=== PATIENT | female | born 1955 | race American Indian/Alaskan Native ===

== ENCOUNTER 2017-08-08 12:55 | Inpatient (IN) | payer OTHER, MEDICARE ==
[2017-08-08] MEDS ORDERED: NACL 0.9% 500 ML 500 ML IV ONE (14:09)
[2017-08-08] MEDS ORDERED: NACL 0.9% 1000 ML 1,000 ML IV ONE (14:11)
[2017-08-08] MEDS ORDERED: VANCOMYCIN 2,000 MG in NACL 0.9% 500 ML 500 ML IV ONE (14:45)
[2017-08-08 14:59] LABS: ISTAT Base Excess -4; ISTAT DEVICE 0; ISTAT PCO2 70.4 (35-45); ISTAT PH 7.159 (7.35-7.45); ISTAT PO2 123 (80-105); ISTAT SO2 97; ISTAT TCO2 27
[2017-08-08] MEDS ORDERED: VANCOMYCIN PHARMACY TO DOSE IV SCH (15:00)
--- NOTE | 2017-08-08 15:09 | XRay Report ---
CHEST ONE VIEW INDICATION: Possible sepsis. COMPARISON: None similar. FINDINGS: Portable, single, frontal chest radiograph demonstrates limited inspiration and mild exaggerated cardiomediastinal silhouette/possible cardiomegaly. Pulmonary arterial hypertension not excluded. No large pleural effusions or CHF. Right subdiaphragmatic lucency suspected. Right upper quadrant cholecystectomy clips. Lower cervical fusion hardware. EKG leads. Mild mid to lower thoracic spondylosis. CONCLUSION: Possible pneumoperitoneum and few other incidental findings without acute chest process, as described. Please correlate. I phoned the above results to Dr. Rivera in the ER, 3 PM, 08/08/2017 who informed the patient is on peritoneal dialysis. Thank you for the opportunity to participate in this patient's care.
--- NOTE | 2017-08-08 15:14 | Emergency Department Report ---
ED General Adult HPI - General Chief complaint: Syncope Stated complaint: HYPOTENSION Time Seen by Provider: 08/08/17 14:08 Source: patient, family, EMS Mode of arrival: Stretcher Limitations: No Limitations, Physical Limitation - History of Present Illness Initial comments: Patient arrives with a complaint of generalized weakness. Apparently she woke up this morning and was very lightheaded. She had a syncopal or near syncopal episode at home. She was found to be hypotensive. She does daily peritoneal dialysis. Her is with her. He provides additional historical information. The patient herself does not complain of headache or any neurological complaints. She has generalized weakness. She denies fever or chills. Her is stating that her blood pressure is "normally low" and that she has been admitted to the hospital several times for low blood pressure under similar circumstances. The further states that patient was treated at [facility] approximately 2 weeks ago. He states that they did not find a peritoneal infection at that time. However, she has had peritonitis in the past. He does state that she was transfused 2 units during this hospitalization at [facility]. Patient was ultimately placed on BiPAP. states that she's never been on a mask like this before. She does have a nebulizer for occasional home treatment. She's never been a smoker. She does not have a history of COPD. -: Gradual Severity scale (0 -10): 0 Associated Symptoms: denies other symptoms - Related Data Home Medications Medication Instructions Recorded Confirmed Last Taken Cyclobenzaprine [Flexeril 10 MG 10 mg PO BID 09/07/13 07/14/14 07/13/14 TAB] 10 MG HYDROcodone/ACETAMINOPHEN 1 tab PO BID PRN 09/07/13 07/14/14 07/13/14 22:00 [Hydrocodone-Acetaminophnen(Nf) 1 TAB 10/500 mg Tab] Oxybutynin [Ditropan] 10 mg PO BID 09/07/13 07/14/14 07/13/14 5 MG traZODone [Desyrel] 100 mg PO QHS 09/07/13 07/14/14 07/12/14 100 MG amLODIPine [Norvasc] 5 mg PO DAILY 05/30/14 07/14/14 07/14/14 10:00 5 MG buPROPion [Wellbutrin] 150 mg PO DAILY 07/06/14 07/14/14 07/13/14 100 MG Previous Rx's Medication Instructions Recorded Last Taken Type FLUoxetine [PROzac] 60 mg PO QDAY #30 capsule 09/19/13 07/13/14 Rx 20 MG Allergies Allergy/AdvReac Type Severity Reaction Status Date / Time Penicillins Allergy Shortness Verified 09/07/13 07:21 of Breath ED Review of Systems ROS: Stated complaint: HYPOTENSION Other details as noted in HPI Constitutional: weakness. denies: chills, fever Eyes: denies: eye pain, eye discharge, vision change ENT: denies: ear pain, throat pain Respiratory: denies: cough, shortness of breath, wheezing Cardiovascular: denies: chest pain, palpitations Endocrine: no symptoms reported Gastrointestinal: denies: abdominal pain, nausea, diarrhea Genitourinary: denies: urgency, dysuria, discharge Musculoskeletal: denies: back pain, joint swelling, arthralgia Skin: denies: rash, lesions Neurological: denies: headache, weakness, paresthesias Psychiatric: denies: anxiety, depression Hematological/Lymphatic: denies: easy bleeding, easy bruising ED Past Medical Hx - Past Medical History Previous Medical History?: Yes Hx Hypertension: Yes Hx Heart Attack/AMI: No Hx Congestive Heart Failure: No Hx Diabetes: No Hx Liver Disease: No Hx Renal Disease: Yes (renal insufficiency, hydronephrosis) Hx Sickle Cell Disease: No Hx Arthritis: Yes Hx Seizures: No Hx Asthma: No Hx COPD: No Additional medical history: chronic knee pain and neck and back pain - Surgical History Hx Pacemaker: No Hx Internal Defibrillator: No Hx Cholecystectomy: Yes Additional Surgical History: bilateral knee replacements. neck surgery x 2 - Social History Smoking Status: Never Smoker Substance Use Type: None - Medications Home Medications: Home Medications Medication Instructions Recorded Confirmed Last Taken Type Cyclobenzaprine [Flexeril 10 MG 10 mg PO BID 09/07/13 07/14/14 07/13/14 History TAB] 10 MG HYDROcodone/ACETAMINOPHEN 1 tab PO BID PRN 09/07/13 07/14/14 07/13/14 22:00 History [Hydrocodone-Acetaminophnen(Nf) 1 TAB 10/500 mg Tab] Oxybutynin [Ditropan] 10 mg PO BID 09/07/13 07/14/14 07/13/14 History 5 MG traZODone [Desyrel] 100 mg PO QHS 09/07/13 07/14/14 07/12/14 History 100 MG FLUoxetine [PROzac] 60 mg PO QDAY #30 capsule 09/19/13 07/14/14 07/13/14 Rx 20 MG amLODIPine [Norvasc] 5 mg PO DAILY 05/30/14 07/14/14 07/14/14 10:00 History 5 MG buPROPion [Wellbutrin] 150 mg PO DAILY 07/06/14 07/14/14 07/13/14 History 100 MG ED Physical Exam - General Limitations: Physical Limitation General appearance: lethargic - Head Head exam: Present: atraumatic, normocephalic - Eye Eye exam: Present: normal appearance. Absent: scleral icterus - ENT ENT exam: Present: mucous membranes moist - Neck Neck exam: Present: normal inspection. Absent: tenderness, meningismus - Respiratory Respiratory exam: Present: normal lung sounds bilaterally. Absent: respiratory distress - Cardiovascular Cardiovascular Exam: Present: regular rate, normal rhythm. Absent: systolic murmur, diastolic murmur, rubs, gallop - GI/Abdominal GI/Abdominal exam: Present: soft, distended (slightly), normal bowel sounds. Absent: tenderness, guarding, rebound, rigid - Extremities Exam Extremities exam: Absent: pedal edema, joint swelling, calf tenderness ED Course Vital Signs 08/08/17 08/08/17 08/08/17 13:00 13:01 13:35 Temperature 98.5 F Pulse Rate 80 73 76 Respiratory 18 15 16 Rate Blood Pressure 108/84 Blood Pressure 66/41 77/41 [Left] O2 Sat by Pulse 98 98 100 Oximetry 08/08/17 08/08/17 08/08/17 13:44 14:11 14:16 Temperature Pulse Rate 76 71 Respiratory 16 14 14 Rate Blood Pressure 64/33 Blood Pressure 127/78 [Left] O2 Sat by Pulse 99 Oximetry 08/08/17 08/08/17 08/08/17 14:20 14:26 14:30 Temperature Pulse Rate 77 75 78 Respiratory 16 19 15 Rate Blood Pressure 64/33 64/33 64/33 Blood Pressure [Left] O2 Sat by Pulse 90 91 Oximetry 08/08/17 08/08/17 08/08/17 14:36 14:40 14:46 Temperature Pulse Rate 77 78 76 Respiratory 21 14 16 Rate Blood Pressure 86/38 80/50 80/50 Blood Pressure [Left] O2 Sat by Pulse Oximetry 08/08/17 08/08/17 08/08/17 14:50 14:54 14:56 Temperature Pulse Rate 75 76 76 Respiratory 15 13 15 Rate Blood Pressure 84/49 84/49 84/49 Blood Pressure [Left] O2 Sat by Pulse 97 Oximetry 08/08/17 08/08/17 08/08/17 14:58 15:00 15:02 Temperature Pulse Rate 77 76 75 Respiratory 13 13 14 Rate Blood Pressure 84/49 84/49 88/65 Blood Pressure [Left] O2 Sat by Pulse Oximetry 08/08/17 08/08/17 08/08/17 15:04 15:06 15:08 Temperature Pulse Rate 75 73 75 Respiratory 18 16 15 Rate Blood Pressure 88/65 88/65 88/65 Blood Pressure [Left] O2 Sat by Pulse 94 95 70 L Oximetry 08/08/17 08/08/17 08/08/17 15:10 15:11 15:12 Temperature Pulse Rate 78 78 74 Respiratory 12 13 14 Rate Blood Pressure 88/65 91/58 91/58 Blood Pressure [Left] O2 Sat by Pulse 97 Oximetry 08/08/17 08/08/17 08/08/17 15:14 15:16 15:18 Temperature Pulse Rate 72 77 78 Respiratory 18 13 16 Rate Blood Pressure 91/58 91/58 91/58 Blood Pressure [Left] O2 Sat by Pulse 88 99 Oximetry 08/08/17 08/08/17 08/08/17 15:20 15:22 15:24 Temperature Pulse Rate 78 77 77 Respiratory 13 15 13 Rate Blood Pressure 91/58 74/36 74/36 Blood Pressure [Left] O2 Sat by Pulse Oximetry 08/08/17 08/08/17 08/08/17 15:26 15:28 15:30 Temperature Pulse Rate 78 73 78 Respiratory 12 15 14 Rate Blood Pressure 91/58 91/58 91/58 Blood Pressure [Left] O2 Sat by Pulse Oximetry 08/08/17 08/08/17 08/08/17 15:31 15:32 15:34 Temperature Pulse Rate 77 77 77 Respiratory 11 L 15 14 Rate Blood Pressure 83/47 83/47 83/47 Blood Pressure [Left] O2 Sat by Pulse Oximetry 08/08/17 08/08/17 08/08/17 15:36 15:38 15:40 Temperature Pulse Rate 78 78 78 Respiratory 13 14 13 Rate Blood Pressure 83/47 83/47 80/54 Blood Pressure [Left] O2 Sat by Pulse Oximetry 08/08/17 08/08/17 08/08/17 15:42 15:44 15:46 Temperature Pulse Rate 77 74 73 Respiratory 13 14 10 L Rate Blood Pressure 80/54 80/54 80/54 Blood Pressure [Left] O2 Sat by Pulse 100 Oximetry 08/08/17 08/08/17 08/08/17 15:48 15:50 15:52 Temperature Pulse Rate 73 71 76 Respiratory 14 14 18 Rate Blood Pressure 80/54 81/45 81/45 Blood Pressure [Left] O2 Sat by Pulse Oximetry 08/08/17 08/08/17 08/08/17 15:54 15:56 15:58 Temperature Pulse Rate 74 72 75 Respiratory 13 14 12 Rate Blood Pressure 81/45 74/36 74/36 Blood Pressure [Left] O2 Sat by Pulse 94 Oximetry 08/08/17 08/08/17 08/08/17 16:00 16:02 16:04 Temperature Pulse Rate 71 72 73 Respiratory 12 12 11 L Rate Blood Pressure 83/45 83/45 83/45 Blood Pressure [Left] O2 Sat by Pulse Oximetry 08/08/17 08/08/17 08/08/17 16:06 16:08 16:10 Temperature Pulse Rate 73 74 71 Respiratory 12 20 12 Rate Blood Pressure 83/45 83/45 83/45 Blood Pressure [Left] O2 Sat by Pulse Oximetry 08/08/17 08/08/17 08/08/17 16:12 16:14 16:16 Temperature Pulse Rate 72 75 78 Respiratory 14 12 17 Rate Blood Pressure 71/51 71/51 71/51 Blood Pressure [Left] O2 Sat by Pulse 88 Oximetry 08/08/17 08/08/17 08/08/17 16:18 16:20 16:21 Temperature Pulse Rate 76 74 77 Respiratory 14 16 16 Rate Blood Pressure 71/51 82/53 82/53 Blood Pressure [Left] O2 Sat by Pulse 89 Oximetry 08/08/17 08/08/17 08/08/17 16:22 16:24 16:26 Temperature Pulse Rate 75 76 74 Respiratory 14 16 15 Rate Blood Pressure 82/53 82/53 82/53 Blood Pressure [Left] O2 Sat by Pulse 77 L Oximetry 08/08/17 08/08/17 08/08/17 16:28 16:29 16:30 Temperature Pulse Rate 78 75 Respiratory 15 13 Rate Blood Pressure 81/45 81/45 78/51 Blood Pressure [Left] O2 Sat by Pulse Oximetry 08/08/17 08/08/17 08/08/17 16:31 16:52 16:53 Temperature Pulse Rate 80 79 Respiratory 16 16 Rate Blood Pressure 78/51 87/42 Blood Pressure [Left] O2 Sat by Pulse 68 L 79 L Oximetry 08/08/17 08/08/17 08/08/17 16:54 16:56 16:58 Temperature Pulse Rate 80 82 74 Respiratory 17 13 17 Rate Blood Pressure 87/42 87/42 87/42 Blood Pressure [Left] O2 Sat by Pulse 85 Oximetry 08/08/17 08/08/17 08/08/17 17:00 17:01 17:02 Temperature Pulse Rate 73 73 72 Respiratory 14 12 14 Rate Blood Pressure 87/42 81/42 81/42 Blood Pressure [Left] O2 Sat by Pulse Oximetry 08/08/17 08/08/17 08/08/17 17:04 17:06 17:08 Temperature Pulse Rate 80 75 81 Respiratory 12 13 20 Rate Blood Pressure 81/42 81/42 81/42 Blood Pressure [Left] O2 Sat by Pulse 100 Oximetry 08/08/17 08/08/17 08/08/17 17:10 17:12 17:14 Temperature Pulse Rate 69 74 71 Respiratory 14 15 17 Rate Blood Pressure 81/42 81/42 81/42 Blood Pressure [Left] O2 Sat by Pulse 84 Oximetry 08/08/17 08/08/17 08/08/17 17:16 17:18 17:20 Temperature Pulse Rate 72 71 72 Respiratory 16 15 17 Rate Blood Pressure 83/40 83/40 83/40 Blood Pressure [Left] O2 Sat by Pulse 97 94 Oximetry 08/08/17 08/08/17 08/08/17 17:22 17:24 17:26 Temperature Pulse Rate 70 71 70 Respiratory 14 19 12 Rate Blood Pressure 83/40 83/40 83/40 Blood Pressure [Left] O2 Sat by Pulse Oximetry 08/08/17 08/08/17 08/08/17 17:28 17:30 17:32 Temperature Pulse Rate 71 69 76 Respiratory 14 14 12 Rate Blood Pressure 78/51 83/44 83/44 Blood Pressure [Left] O2 Sat by Pulse 89 88 Oximetry 08/08/17 08/08/17 08/08/17 17:34 17:36 17:38 Temperature Pulse Rate 70 77 72 Respiratory 14 18 14 Rate Blood Pressure 83/44 83/44 83/44 Blood Pressure [Left] O2 Sat by Pulse Oximetry 08/08/17 08/08/17 08/08/17 17:40 17:42 17:44 Temperature Pulse Rate 69 76 69 Respiratory 14 9 L 14 Rate Blood Pressure 83/44 83/44 83/44 Blood Pressure [Left] O2 Sat by Pulse 96 92 Oximetry 08/08/17 17:46 Temperature Pulse Rate 70 Respiratory 12 Rate Blood Pressure 91/51 Blood Pressure [Left] O2 Sat by Pulse Oximetry - Reevaluation(s) Reevaluation #1: Patient is given a volume bolus. I vanessa the patient's blood myself from her left brachial artery. The procedure was well-tolerated and was done without difficulty. A blood gas was done at the same time. This showed acute hypercapnic respiratory failure. The patient was placed on BiPAP. I did recommend to the that we start a central line as the patient was persistently hypotensive. He continued to state that her low blood pressure was normal. Therefore this is currently deferred as he has not yet agreed. Her blood pressure as last measured was in the low 90s. I treated the patient empirically with vancomycin and meropenem (penicillin allergic and incidence of allergy to meropenem is not significant in these patients). This was well- tolerated. I ordered peritoneal fluid to be collected. I encouraged the collection of this. Yet, there is no cell Count. However the patient is being empirically treated for peritonitis. Cultures were sent. Patient is referred to Dr. Barney of the hospitalist service. I will assist in further resuscitation. I believe she will need ICU placement at this juncture. 08/08/17 18:13 Reevaluation #2: Multiple reexaminations were conducted. Patient on continuous BiPAP. I'm available for central line in place. Dr. Barney to see patient and advise. 08/08/17 18:24 ED Medical Decision Making - Lab Data Result diagrams: 08/08/17 14:59 08/08/17 14:11 Laboratory Results - last 24 hr 08/08/17 08/08/17 08/08/17 14:11 14:22 14:52 WBC RBC Hgb Hct MCV MCH MCHC RDW Plt Count Lymph % (Auto) Porter % (Auto) Eos % (Auto) Baso % (Auto) Lymph # Porter # Eos # Baso # Seg Neutrophils % Seg Neutrophils # PT INR POC ABG pH POC ABG pCO2 POC ABG pO2 POC ABG HCO3 POC ABG Total CO2 POC ABG O2 Sat POC ABG Base Excess VBG pH FiO2 Sodium 134 L Potassium 3.2 L Chloride 93.9 L Carbon Dioxide 24 Anion Gap 19 BUN 21 H Creatinine 5.4 H Estimated GFR 10 BUN/Creatinine Ratio 3.88 Glucose 145 H Lactic Acid 1.50 Calcium 7.4 L Phosphorus 3.60 Magnesium 1.20 L Total Bilirubin 0.50 Direct Bilirubin 0.2 Indirect Bilirubin 0.3 AST 12 ALT 11 Alkaline Phosphatase 148 H Ammonia NT-Pro-B Natriuret Pep 6156 H Total Protein 5.0 L Albumin 1.5 L Albumin/Globulin Ratio 0.4 TSH 6.580 H Free T4 1.46 Blood Type 08/08/17 08/08/17 08/08/17 14:52 14:52 14:52 WBC RBC Hgb Hct MCV MCH MCHC RDW Plt Count Lymph % (Auto) Porter % (Auto) Eos % (Auto) Baso % (Auto) Lymph # Porter # Eos # Baso # Seg Neutrophils % Seg Neutrophils # PT INR POC ABG pH POC ABG pCO2 POC ABG pO2 POC ABG HCO3 POC ABG Total CO2 POC ABG O2 Sat POC ABG Base Excess VBG pH 7.462 H FiO2 Sodium Potassium Chloride Carbon Dioxide Anion Gap BUN Creatinine Estimated GFR BUN/Creatinine Ratio Glucose Lactic Acid Calcium Phosphorus Magnesium Total Bilirubin Direct Bilirubin Indirect Bilirubin AST ALT Alkaline Phosphatase Ammonia 25.0 NT-Pro-B Natriuret Pep Total Protein Albumin Albumin/Globulin Ratio TSH Free T4 Blood Type O POSITIVE 08/08/17 08/08/17 08/08/17 14:56 14:59 14:59 WBC 17.0 H RBC 2.94 L Hgb 8.7 L Hct 27.0 L MCV 92 MCH 30 MCHC 32 RDW 19.5 H Plt Count 369 Lymph % (Auto) 5.6 L Porter % (Auto) 13.4 H Eos % (Auto) 1.1 Baso % (Auto) 0.2 Lymph # 1.0 L Porter # 2.3 H Eos # 0.2 Baso # 0.0 Seg Neutrophils % 79.7 H Seg Neutrophils # 13.5 H PT 14.7 INR 1.09 POC ABG pH 7.159 L POC ABG pCO2 70.4 H POC ABG pO2 123 H POC ABG HCO3 25.0 POC ABG Total CO2 27 POC ABG O2 Sat 97 POC ABG Base Excess -4 VBG pH FiO2 21 Sodium Potassium Chloride Carbon Dioxide Anion Gap BUN Creatinine Estimated GFR BUN/Creatinine Ratio Glucose Lactic Acid Calcium Phosphorus Magnesium Total Bilirubin Direct Bilirubin Indirect Bilirubin AST ALT Alkaline Phosphatase Ammonia NT-Pro-B Natriuret Pep Total Protein Albumin Albumin/Globulin Ratio TSH Free T4 Blood Type Laboratory Results - last 24 hr 08/08/17 08/08/17 08/08/17 14:09 14:11 14:22 WBC RBC Hgb Hct MCV MCH MCHC RDW Plt Count Lymph % (Auto) Porter % (Auto) Eos % (Auto) Baso % (Auto) Lymph # Porter # Eos # Baso # Seg Neutrophils % Seg Neutrophils # PT INR APTT 31.0 POC ABG pH POC ABG pCO2 POC ABG pO2 POC ABG HCO3 POC ABG Total CO2 POC ABG O2 Sat POC ABG Base Excess VBG pH FiO2 Sodium 134 L Potassium 3.2 L Chloride 93.9 L Carbon Dioxide 24 Anion Gap 19 BUN 21 H Creatinine 5.4 H Estimated GFR 10 BUN/Creatinine Ratio 3.88 Glucose 145 H Lactic Acid Calcium 7.4 L Phosphorus 3.60 Magnesium 1.20 L Total Bilirubin 0.50 Direct Bilirubin 0.2 Indirect Bilirubin 0.3 AST 12 ALT 11 Alkaline Phosphatase 148 H Ammonia NT-Pro-B Natriuret Pep 6156 H Total Protein 5.0 L Albumin 1.5 L Albumin/Globulin Ratio 0.4 TSH 6.580 H Free T4 1.46 Blood Type Antibody Screen 08/08/17 08/08/17 08/08/17 14:52 14:52 14:52 WBC RBC Hgb Hct MCV MCH MCHC RDW Plt Count Lymph % (Auto) Porter % (Auto) Eos % (Auto) Baso % (Auto) Lymph # Porter # Eos # Baso # Seg Neutrophils % Seg Neutrophils # PT INR APTT POC ABG pH POC ABG pCO2 POC ABG pO2 POC ABG HCO3 POC ABG Total CO2 POC ABG O2 Sat POC ABG Base Excess VBG pH 7.462 H FiO2 Sodium Potassium Chloride Carbon Dioxide Anion Gap BUN Creatinine Estimated GFR BUN/Creatinine Ratio Glucose Lactic Acid 1.50 Calcium Phosphorus Magnesium Total Bilirubin Direct Bilirubin Indirect Bilirubin AST ALT Alkaline Phosphatase Ammonia 25.0 NT-Pro-B Natriuret Pep Total Protein Albumin Albumin/Globulin Ratio TSH Free T4 Blood Type Antibody Screen 08/08/17 08/08/17 08/08/17 14:52 14:56 14:59 WBC 17.0 H RBC 2.94 L Hgb 8.7 L Hct 27.0 L MCV 92 MCH 30 MCHC 32 RDW 19.5 H Plt Count 369 Lymph % (Auto) 5.6 L Porter % (Auto) 13.4 H Eos % (Auto) 1.1 Baso % (Auto) 0.2 Lymph # 1.0 L Porter # 2.3 H Eos # 0.2 Baso # 0.0 Seg Neutrophils % 79.7 H Seg Neutrophils # 13.5 H PT INR APTT POC ABG pH 7.159 L POC ABG pCO2 70.4 H POC ABG pO2 123 H POC ABG HCO3 25.0 POC ABG Total CO2 27 POC ABG O2 Sat 97 POC ABG Base Excess -4 VBG pH FiO2 21 Sodium Potassium Chloride Carbon Dioxide Anion Gap BUN Creatinine Estimated GFR BUN/Creatinine Ratio Glucose Lactic Acid Calcium Phosphorus Magnesium Total Bilirubin Direct Bilirubin Indirect Bilirubin AST ALT Alkaline Phosphatase Ammonia NT-Pro-B Natriuret Pep Total Protein Albumin Albumin/Globulin Ratio TSH Free T4 Blood Type O POSITIVE Antibody Screen Negative 08/08/17 14:59 WBC RBC Hgb Hct MCV MCH MCHC RDW Plt Count Lymph % (Auto) Porter % (Auto) Eos % (Auto) Baso % (Auto) Lymph # Porter # Eos # Baso # Seg Neutrophils % Seg Neutrophils # PT 14.7 INR 1.09 APTT POC ABG pH POC ABG pCO2 POC ABG pO2 POC ABG HCO3 POC ABG Total CO2 POC ABG O2 Sat POC ABG Base Excess VBG pH FiO2 Sodium Potassium Chloride Carbon Dioxide Anion Gap BUN Creatinine Estimated GFR BUN/Creatinine Ratio Glucose Lactic Acid Calcium Phosphorus Magnesium Total Bilirubin Direct Bilirubin Indirect Bilirubin AST ALT Alkaline Phosphatase Ammonia NT-Pro-B Natriuret Pep Total Protein Albumin Albumin/Globulin Ratio TSH Free T4 Blood Type Antibody Screen - EKG Data -: EKG Interpreted by Me EKG shows normal: sinus rhythm, axis, intervals, QRS complexes Rate: normal - EKG Data Interpretation: other (lateral T-wave inversions consider ischemia) - Radiology Data Radiology results: report reviewed (peritoneal fluid consistent with peritoneal dialysis. Otherwise no acute finding. Chest x-ray shows no acute finding) Critical Care Time: Yes Critical care time in (mins) excluding proc time.: 90 Critical care attestation.: If time is entered above; I have spent that time in minutes in the direct care of this critically ill patient, excluding procedure time. ED Disposition Clinical Impression: Acute hypercapnic respiratory failure, End-stage renal disease on peritoneal dialysis, Hypomagnesemia, Hypokalemia, Hypoalbuminemia Hypotension Qualifiers: Hypotension type: unspecified hypotension type Qualified Code(s): I95.9 - Hypotension, unspecified Leukocytosis Qualifiers: Leukocytosis type: unspecified Qualified Code(s): D72.829 - Elevated white blood cell count, unspecified Disposition: DC-09 OP ADMIT IP TO THIS HOSP Is pt being admited?: Yes Does the pt Need Aspirin: No Condition: Stable Referrals: PRIMARY CARE, [Primary Care Provider] - 3-5 Days Time of Disposition: 18:22
[2017-08-08 15:19] LABS: Basophils % (Auto) 0.2 % (0.0-1.8); Eosinophils % (Auto) 1.1 % (0.0-4.3); Hemoglobin 8.7 gm/dl (10.1-14.3); Mean Corpuscular HGB Conc 32 % (30-34); Mean Corpuscular Hemoglobin 30 pg (28-32); Mean Corpuscular Volume 92 fl (79-97); Platelet Count 369 K/mm3 (140-440); Red Blood Count 2.94 M/mm3 (3.65-5.03); Red Cell Distribution Width 19.5 % (13.2-15.2)
[2017-08-08 15:26] LABS: Albumin 1.5 g/dL (3.9-5); Albumin/Globulin Ratio 0.4 %; BUN/Creatinine Ratio 3.88; Bilirubin,Direct 0.2 mg/dL (0-0.2); Bilirubin,Indirect 0.3 mg/dL; Bilirubin,Total 0.5 mg/dL (0.1-1.2); Calcium 7.4 mg/dL (8.4-10.2); Chloride 93.9 mmol/L (98-107); Magnesium 1.2 mg/dL (1.7-2.3); Phosphorous 3.6 mg/dL (2.5-4.5); Potassium 3.2 mmol/L (3.6-5.0)
[2017-08-08 15:30] LABS: INR 1.09 (0.87-1.13)
[2017-08-08] MEDS ORDERED: XYLOCAINE 1% 20 mL ONE ×2 (15:53→19:37)
[2017-08-08] MEDS ORDERED: MERREM 1,000 MG in NACL 0.9% 100 ML IV ONE (16:00)
[2017-08-08] MEDS ORDERED: XYLOCAINE 1% 20 mL INFILTRATI STA (17:29)
--- NOTE | 2017-08-08 18:19 | Cat Scan Report ---
FINAL REPORT PROCEDURE: CT ABDOMEN PELVIS WO CON TECHNIQUE: Computerized axial tomography of the abdomen and pelvis was performed without intravenous contrast. This study is performed without intravascular contrast material and its sensitivity for abdominal and pelvic pathology, including neoplasms, inflammation, abscess, free fluid, thrombosis, arterial dissection and infarction, is reduced compared with a contrast enhanced study. HISTORY: abd pain/ PD COMPARISON: No prior studies are available for comparison. FINDINGS: Mild atelectasis is seen at the lung bases. There is free intraperitoneal air. This may be associated with the patient's percutaneous peritoneal dialysis catheter. Moderate free fluid is seen in the pelvis and upper abdomen. The catheter appears coiled in the right lower quadrant of the abdomen. Patient has had prior gastric surgery. Liver and spleen display no abnormalities. Patient has had prior cholecystectomy. The pancreas appears normal. The adrenal glands and abdominal aorta are normal in size. Patient has bilateral ureteral stents which appear appropriately positioned. Kidneys are atrophic. No hydronephrosis is seen. Urinary bladder is decompressed with a [place] catheter. No adnexal masses are seen. No bowel dilation or constipation is seen. Appendix is not seen but no pericecal inflammation is seen. IMPRESSION: Moderate free fluid and free air in the abdomen and pelvis is probably from the patient's peritoneal dialysis catheter.
--- NOTE | 2017-08-08 19:15 | History and Physical Report ---
History of Present Illness Chief complaint: My blood pressure is low, and i feel weak History of present illness: 62 YO Female with MO, ESRD-PD(Daily), HTN, OA, Ischemic Cardiomyopathy currently on Milrinone,Chronic Pain presents to ED for evaluation. Pt states that she awoke this morning feeling lightheaded. Pt states that she attempted to get up from a seated position and began feeling lightheaded, and nearly passed out. Pt states that she also has been experiencing pain in her abdomen for the past 2 days, with worsening symptoms over the past 1 day. Pt denies fever, chills, CP, Palpitations, NVD, trauma, productive cough, BRBPR, productive cough, or recent ill contacts. Pt seen and evaluated in ED and found to have sepsis, acute on chronic respiratory failure, and hypotension. Pt at bedside diring exam and interview. Pt counseled regarding poor prognosis. Pt declined admission to ICU, Central and arterial line placement. Pt states that she wants to sign out AMA, and wants to return to [facility] for further care. Pt informed of risk of , and worsening disease if she leaves AMA. In addition, pt informed that she my not survive transport in a private vehicle. [place] physician contacted, and will not accept patient transfer due to hemodynamic instability. Past History Past Medical History: arthritis, ESRD, heart failure, hypertension, other ( chronic Pain, Obesity) Past Surgical History: cholecystectomy, total knee replacement, Other (Neck surgery) Social history: , lives with family. denies: smoking, alcohol abuse, prescription drug abuse, IV drug use Family history: CAD, hypertension Medications and Allergies Allergies Allergy/AdvReac Type Severity Reaction Status Date / Time Penicillins Allergy Shortness Verified 09/07/13 07:21 of Breath Home Medications Medication Instructions Recorded Confirmed Last Taken Type Cyclobenzaprine [Flexeril 10 MG 10 mg PO BID 09/07/13 07/14/14 07/13/14 History TAB] 10 MG HYDROcodone/ACETAMINOPHEN 1 tab PO BID PRN 09/07/13 07/14/14 07/13/14 22:00 History [Hydrocodone-Acetaminophnen(Nf) 1 TAB 10/500 mg Tab] Oxybutynin [Ditropan] 10 mg PO BID 09/07/13 07/14/14 07/13/14 History 5 MG traZODone [Desyrel] 100 mg PO QHS 09/07/13 07/14/14 07/12/14 History 100 MG FLUoxetine [PROzac] 60 mg PO QDAY #30 capsule 09/19/13 07/14/14 07/13/14 Rx 20 MG amLODIPine [Norvasc] 5 mg PO DAILY 05/30/14 07/14/14 07/14/14 10:00 History 5 MG buPROPion [Wellbutrin] 150 mg PO DAILY 07/06/14 07/14/14 07/13/14 History 100 MG Active Meds: Active Medications Vancomycin HCl (Vancomycin Pharmacy To Dose) 1 each IV PKCONSULT GLORIA PRN Reason: Protocol Review of Systems Constitutional: no weight loss, no weight gain, no fever, no chills Ears, nose, mouth and throat: no ear pain, no ear discharge, no tinnitis, no decreased hearing, no nose pain Breasts: no change in shape, no swelling, no mass Cardiovascular: lightheadedness, shortness of breath, no chest pain, no orthopnea, no palpitations, no rapid/irregular heart beat Respiratory: no cough, no cough with sputum, no excessive sputum Gastrointestinal: abdominal pain, no nausea, no vomiting, no diarrhea, no constipation Genitourinary Female: no pelvic pain, no flank pain, no menorrhagia, no dysuria Rectal: no pain, no incontinence, no bleeding Musculoskeletal: no neck stiffness, no neck pain, no shooting arm pain, no arm numbness/tingling, no low back pain Integumentary: no rash, no pruritis, no redness, no sores, no wounds Neurological: no transient paralysis, no paralysis, no weakness, no parathesias , no numbness Psychiatric: no anxiety, no memory loss, no change in sleep habits, no sleep disturbances, no insomnia, no hypersomnia, no change in appetite Endocrine: no cold intolerance, no heat intolerance, no polyphagia, no excessive thirst, no polydipsia Hematologic/Lymphatic: no easy bruising, no easy bleeding Allergic/Immunologic: no urticaria, no allergic rhinitis, no wheezing Exam - Constitutional Vitals: Temp Pulse Resp BP Pulse Ox 98.5 F 68 17 88/68 88 08/08/17 13:01 08/08/17 18:36 08/08/17 18:36 08/08/17 18:36 08/08/17 18:34 General appearance: Present: severe distress - EENT Eyes: Present: PERRL ENT: hearing intact, clear oral mucosa - Neck Neck: Present: supple, normal ROM - Respiratory Respiratory effort: labored Respiratory: bilateral: diminished - Cardiovascular Heart Sounds: Present: S1 & S2. Absent: rub, click - Extremities Extremities: pulses symmetrical, No edema Extremity abnormal: edema Peripheral Pulses: within normal limits - Abdominal General gastrointestinal: Present: soft, non-tender, non-distended, normal bowel sounds Localized gastrointestinal: tender: diffuse Female genitourinary: Present: normal - Integumentary Integumentary: Present: clear, dry, decreased turgor - Musculoskeletal Musculoskeletal: generalized weakness - Psychiatric Psychiatric: appropriate mood/affect, intact judgment & insight - Neurologic Neurologic: CNII-XII intact, moves all extremities Results - Labs CBC & Chem 7: 08/08/17 14:59 08/08/17 14:11 Labs: Abnormal lab results 08/08/17 08/08/17 08/08/17 Range/Units 14:11 14:22 14:52 WBC (4.5-11.0) K/mm3 RBC (3.65-5.03) M/mm3 Hgb (10.1-14.3) gm/dl Hct (30.3-42.9) % RDW (13.2-15.2) % Lymph % (Auto) (13.4-35.0) % [place] % (Auto) (0.0-7.3) % Lymph # (1.2-5.4) K/mm3 [place] # (0.0-0.8) K/mm3 Seg Neutrophils % (40.0-70.0) % Seg Neutrophils # (1.8-7.7) K/mm3 POC ABG pH (7.35-7.45) POC ABG pCO2 (35-45) POC ABG pO2 (80-105) VBG pH 7.462 H (7.320-7.420) Sodium 134 L (137-145) mmol/L Potassium 3.2 L (3.6-5.0) mmol/L Chloride 93.9 L (98-107) mmol/L BUN 21 H (7-17) mg/dL Creatinine 5.4 H (0.7-1.2) mg/dL Glucose 145 H (65-100) mg/dL Calcium 7.4 L (8.4-10.2) mg/dL Magnesium 1.20 L (1.7-2.3) mg/dL Alkaline Phosphatase 148 H (35-129) units/L NT-Pro-B Natriuret Pep 6156 H (0-900) pg/mL Total Protein 5.0 L (6.3-8.2) g/dL Albumin 1.5 L (3.9-5) g/dL TSH 6.580 H (0.270-4.200) mlU/mL 08/08/17 08/08/17 Range/Units 14:56 14:59 WBC 17.0 H (4.5-11.0) K/mm3 RBC 2.94 L (3.65-5.03) M/mm3 Hgb 8.7 L (10.1-14.3) gm/dl Hct 27.0 L (30.3-42.9) % RDW 19.5 H (13.2-15.2) % Lymph % (Auto) 5.6 L (13.4-35.0) % [place] % (Auto) 13.4 H (0.0-7.3) % Lymph # 1.0 L (1.2-5.4) K/mm3 [place] # 2.3 H (0.0-0.8) K/mm3 Seg Neutrophils % 79.7 H (40.0-70.0) % Seg Neutrophils # 13.5 H (1.8-7.7) K/mm3 POC ABG pH 7.159 L (7.35-7.45) POC ABG pCO2 70.4 H (35-45) POC ABG pO2 123 H (80-105) VBG pH (7.320-7.420) Sodium (137-145) mmol/L Potassium (3.6-5.0) mmol/L Chloride (98-107) mmol/L BUN (7-17) mg/dL Creatinine (0.7-1.2) mg/dL Glucose (65-100) mg/dL Calcium (8.4-10.2) mg/dL Magnesium (1.7-2.3) mg/dL Alkaline Phosphatase (35-129) units/L NT-Pro-B Natriuret Pep (0-900) pg/mL Total Protein (6.3-8.2) g/dL Albumin (3.9-5) g/dL TSH (0.270-4.200) mlU/mL Assessment and Plan - Patient Problems (1) Sepsis Current Visit: Yes Status: Acute Qualifiers: Sepsis type: S Plan to address problem: Sepsis Protocol: Admit to ICU, IV abx, IVF, pressor support, monitor uop q shift , blood cultures, serial lactic acid, Monitor CVP, and MAP, The high probability of a clinically significant, sudden or life threatening deterioration of the [Cardiac, respiratory, renal] system(s) required my full and direct attention, intervention and personal management. The aggregate critical care time was [65] minutes. This time is in addition to time spent performing reported procedures but includes the following: [x] Data Review and interpretation [x] Patient assessment and monitoring of vital signs [x] Documentation [x] Medication orders and management (2) Peritonitis (acute) generalized Current Visit: Yes Status: Acute Plan to address problem: IV abx, IVF, serial abdominal exam, (3) ARF (acute renal failure) Current Visit: Yes Status: Acute Qualifiers: Acute renal failure type: A Plan to address problem: IVF, supportive care, monitor uop q shift, nephrology consulted, (4) Acute respiratory failure with hypoxemia Current Visit: Yes Status: Acute Plan to address problem: Supplemental oxygen, Nebs, aspiration precautions, NIPPV. Pt and informed that patient will likely require intubation, and vent support within the next 6 hours. (5) ESRD on peritoneal dialysis Current Visit: Yes Status: Acute Plan to address problem: Nephrology consulted, for dialysis, (6) DVT prophylaxis Current Visit: Yes Status: Acute
[2017-08-08 19:20] LABS: Reactive Lymph Body Fluid 0 %; Seg Neutrophils Body Fluid 12 %
[2017-08-08 19:21] LABS: Basophils Body Fluid 0 %; Eosinophils Body Fluid 0 %; Lymphocytes BF 0 %; Monocytes Body Fluid 1 %
[2017-08-08 19:32] LABS: pH, Body Fluid 7.74
[2017-08-08] MEDS ORDERED: LEVOPHED DRIP 4 MG/NS 250 ML 4 MG/250 ML BAG IV ONE (20:04)
[2017-08-08] MEDS: LEVOPHED DRIP 4 MG/NS 250 ML 4 MG/250 ML BAG IV SCH (20:05)
[2017-08-08 20:45] LABS: Bacteria,Urine 4+ /HPF (Negative); Bilirubin,Urine NEG (Negative); Blood,Urine MOD (Negative); Ketones,Urine NEG (Negative); Leukocyte Esterase,Urine LG (Negative); Mucus,Urine 3+ /HPF; Nitrite,Urine NEG (Negative); Urobilinogen,Urine < 2.0 mg/dL (<2.0)
[2017-08-08] MEDS ORDERED: NACL 0.9% 1000 ML IV ONE (20:53)
[2017-08-08 21:58] LABS: ISTAT Base Excess 4; ISTAT HCO3 26.9; ISTAT PCO2 35.4 (35-45); ISTAT PO2 122 (80-105); ISTAT SO2 99; ISTAT TCO2 28
[2017-08-08] MEDS ORDERED: LEVAQUIN 750MG/150ML 750 MG/150 ML BAG IV ONE (22:00)
[2017-08-08] MEDS ORDERED: TYLENOL PO ONE (22:46)
[2017-08-09] MEDS: LEVOPHED DRIP 4 MG/NS 250 ML 4 MG/250 ML BAG IV SCH ×2 (05:22→14:53)
--- NOTE | 2017-08-09 10:25 | Admit Criteria Form ---
Admission Criteria Documentation: INTENSIVE CARE UNIT ADMISSION Intensive Care Admission Guidelines ( [place]/check or initial the applicable condition/criteria) Admission may be indicated when need is demonstrated by 1 or more of the following:(1)(2)(3)(4)(5)(6)(7)(8)(9)(10)(11) [X]I. Vital sign abnormalities, including 1 or more of the following: [X]a) Systolic arterial pressure less than 90 mm Hg, or 20 mm Hg below patient' s usual pressure in adult or child 10 years or older b) Systolic arterial blood pressure less than 70 mm Hg in infant (1 month to 1 year of age), or less than the sum of 70 mm Hg plus twice the patient's age in child 2 to 10 years of age(12) c) Diastolic arterial pressure greater than 120 mm Hg [X]d) Mean arterial pressure less than 70 mm Hg in adult[A] e) Mean arterial pressure less than the sum of 40 mm Hg plus 1.5 times patient' s age in child or adolescent[A](12) f) Pulse less than 40 or greater than 140 beats per minute in adult, or in adolescent 16 years or older g) Pulse less than 90 or greater than 160 beats per minute in infant younger than 1 year(7) h) Pulse less than 70 or greater than 150 beats per minute in child 1 to 15 years of age(7) i) Respiratory rate greater than 35 or less than 8 breaths per minute in adult [X]II. Laboratory findings (new), including 1 or more of the following(13)(14)( 15)(16)(17)(18)(19)(20): a) Saturation of arterial oxygen less than 90% or partial pressure of oxygen less than 60 mm Hg (8.0 kPa) despite oxygen supplementation [X]b) Rising partial pressure of carbon dioxide with acute or uncompensated respiratory acidosis [X]c) Arterial pH less than 7.2 or greater than 7.65 d) Serum sodium less than 110 mEq/L (mmol/L) or greater than 160 mEq/L (mmol/L) e) Serum sodium less than 125 mEq/L (mmol/L) with Altered mental status, seizure , or respiratory arrest f) Serum sodium more than 145 mEq/L (mmol/L) with Altered mental status, seizure , or severe dehydration requiring large volume fluid resuscitation g) Serum potassium less than 2 mEq/L (mmol/L) or greater than 7 mEq/L (mmol/L) h) Serum potassium less than 2.5 mEq/L (mmol/L) with severe clinical or electrocardiogram manifestations (eg, paralysis, cardiac arrhythmia, delayed depolarization, flat T waves, or U waves) i) Serum potassium greater than 6 mEq/L (mmol/L) with electrocardiogram changes of hyperkalemia (eg, peaked T waves, widened QRS, cardiac arrhythmia) j) Serum calcium greater than 14 mg/dL (3.5 mmol/L)(19) k) Serum calcium greater than 12 mg/dL (3.0 mmol/L) with Altered mental status, severe volume depletion requiring large volume IV fluid resuscitation, Hypotension, significant arrhythmia, heart block, or digitalis toxicity(19) l) Serum phosphorus less than 1 mg/dL (0.32 mmol/L) m) Toxic drug level or poisoning causing or likely to cause neurologic abnormalities or Hemodynamic instability n) Less severe laboratory abnormalities contributing to 1 or more of the following: i. Seizure ii. Altered mental status iii. Muscle weakness or severe spasms iv. Arrhythmias v. Hemodynamic instability vi. Other significant clinical manifestations III. Electrocardiogram (or cardiac monitoring) findings, including 1 or more of the following: a) Inherently unstable or life-threatening arrhythmia (eg, sustained ventricular tachycardia, ventricular fibrillation, asystole) b) Arrhythmia causing Hypotension (eg, Bradycardia, Tachycardia ) c) Complete heart block causing Hypotension d) Other findings indicative of need for intensive care (eg, acute cardiac ischemia, myocardial infarction) IV. Physical findings, including 1 or more of the following: a) Threatened airway b) Altered mental status that is severe or persistent c) Repeated or prolonged seizures d) New-onset anuria (urine output less than 0.1 mL/kg/hour over 4 hours) e) Cyanosis (new) f) Cardiac tamponade g) Status post respiratory or cardiac arrest h) Severe metz (eg, partial thickness metz over more than 10% of body surface , third-degree metz) i) Findings consistent with abdominal emergency (eg, peritoneal signs) V. Imaging findings, such as dissecting aneurysm or ruptured viscus [X]. Specific intervention or monitoring needed, as indicated by 1 or more of the following: [X]a) New need for assisted ventilation, invasive or noninvasive(20) b) New need for intubation (eg, to protect airway) c) New tracheostomy (less than 48 hours old) d) Hourly vital signs or neurologic checks e) Pulmonary artery line monitoring needed f) Continuous arterial line monitoring needed g) Continuous IV vasoactive drugs h) Continuous IV antiarrhythmics i) Large volume IV fluid resuscitation (eg, greater than 6 L per day) j) Large or rapid transfusion needs (eg, more than 6 units within 24 hours) k) High-risk IV treatment, such as thrombolysis, hypertonic saline, or mannitol infusion l) Rapid desensitization for high-risk hypersensitivity reaction to required medication (eg, penicillin)(21)(22) m) Acute cardiac pacing n) Intra-aortic balloon pump o) Ventricular assist device p) Extracorporeal membrane oxygenation device q) Pericardiocentesis r) Hemodialysis in unstable patient s) Continuous renal replacement therapy (eg, continuous venovenous hemodialysis ) t) Continuous fluid removal via hemofiltration (eg, continuous venovenous hemofiltration) u) Peritoneal dialysis initiation v) Emergency bronchoscopic therapy (eg, for hemoptysis) w) Emergency endoscopic therapy for bleeding x) Balloon tamponade for variceal bleeding y) Intracranial pressure monitoring or tissue oxygen monitoring z) Ventriculostomy monitoring aa) Treatment of ongoing seizures bb) Induced hypothermia or coma cc) Ongoing frequent testing and treatment for acute conditions, including 1 or more of the following: i. Correction of severe metabolic acidosis or alkalosis ii. Frequent glucose checks (ie, more frequent than performable at lower level of care) iii. Severe fluid overload iv. Cerebral edema v. Monitoring or suctioning for respiratory insufficiency or acidosis vi. Monitoring for active bleeding dd) Other need for treatment or monitoring not available outside the ICU VII. Systemic conditions, including 1 or more of the following: a) Severe electrolyte or metabolic disturbance causing or likely to cause 1 or more of the following(13)(16)(17)(18)(19): i. Life-threatening cardiac dysrhythmia ii. Respiratory insufficiency iii. Altered mental status iv. Seizures v. Hemodynamic instability vi. Muscular weakness b) Environmental injuries such as Hypothermia, hyperthermia, electrical injuries , or near drowning(27)(28)(29)(30)(31) c) Anaphylaxis with respiratory compromise, Hypotension, or other end organ dysfunction(32)(33) d) Confirmed or suspected malignant hyperthermia as evidenced by exposure to volatile anesthetic agent or succinylcholine and 1 or more of the following(27)(34): i. Hypermetabolism as evidenced by inappropriately increased CO2 production, O2 consumption, or acute mixed metabolic and respiratory acidosis ii. Unexplained Tachycardia iii. Cardiac tachyarrhythmias, ectopic ventricular beats or ventricular bigemini iv. [place] spasm v. Muscle rigidity vi. Rapid increase in core body temperature vii. Acute rise in serum potassium, creatine kinase, or myoglobin e) Neuroleptic malignant syndrome as evidenced by exposure to neuroleptic drug ( eg, phenothiazine, butyrophenone) or dopamine depleting drug (eg, alpha-methyltyrosine),or withdrawal of dopaminergic agent (eg, L-dopa, amantadine) and 1 or more of the following(27)(34): i. Muscle rigidity ii. Hyperthermia iii. Altered mental status iv. Hemodynamic instability v. Acute rise in creatine kinase f) Serotonin syndrome (serotonin toxicity) as evidenced by exposure to medication(s) that increases level of serotonin in [employer]ANG[employer]AGE [employer]OLOGIST (eg, some antidepressants, opioids, stimulants, triptans) and 1 or more of the following: i. Significant neurologic finding (eg, agitation, hypomania, hallucinations, Altered mental status ) ii. Significant autonomic nervous system-related finding (eg, sweating, hyperthermia, tachycardia, vomiting) iii. Significant musculoskeletal findings (eg, myoclonus, hyperreflexia, tremor) g) Severe alcohol withdrawal with 1 or more of the following(36)(37)(38): i. Hemodynamic instability ii. Cardiac arrhythmias of immediate concern iii. Uncontrolled seizures iv. Respiratory depression with need for, or high likelihood of requiring, mechanical ventilation v. Need for anesthetic agent to control agitation (eg, dexmedetomidine, propofol ) vi. Delirium tremens as evidenced by ALL of the following: a) Cessation of, or reduction in, heavy and prolonged alcohol use b) Delirium c) 2 or more of the following symptoms: i. Autonomic hyperactivity ii. Tremor iii. Nausea or vomiting iv. Hallucinations v. Increased anxiety vi. Psychomotor agitation vii. Generalized tonic-clonic seizures VIII. Cardiology diagnoses or procedures, including 1 or more of the following( 39)(40)(41)(42)(43): a) Chest pain with 1 or more of the following: i. Hemodynamic instability ii. Suspicion of diagnoses needing ICU care (eg, aortic dissection) iii. New unstable or symptomatic arrhythmia or ECG finding (eg, ventricular tachycardia, ventricular fibrillation, advanced heart block) iv. Syncope or near-syncope v. Pulmonary edema thought to be due to ischemia vi. New or worsening mitral regurgitation murmur, S3, or rales b) Acute IL or unstable angina with complications as indicated by 1 or more of the following: i. Persistent chest pain ii. Hemodynamic instability iii. New unstable or symptomatic arrhythmia or ECG finding (eg, ventricular tachycardia, ventricular fibrillation, advanced heart block) iv. Syncope or near-syncope v. Pulmonary edema thought to be due to ischemia vi. New or worsening mitral regurgitation murmur, S3, or rales vii. New-onset bundle branch block viii.Hemorrhagic complication (eg, intracranial or access site bleed following thrombolysis) c) Complication of cardiac ablation, indicated by 1 or more of the following(45) (46): i. Pericardial tamponade ii. Hemodynamic instability iii. Thromboembolic stroke iv. Aortic or mitral valve injury v. Vascular injuries vi. Esophageal perforation vii. Severe arrhythmia viii. Air embolism ix. Other severe complication d) Ablation with need for post-procedure invasive hemodynamic monitoring(45) e) Hemodynamic instability due to cardiac cause (eg, valve disease, arrhythmia, ischemia, conduction abnormality) (47)(48)(49) f) Hypertensive emergency, with need for 1 or more of the following(38)(39): i. IV antihypertensive therapy ii. Invasive hemodynamic monitoring (eg, arterial line) g) Infective endocarditis with 1 or more of the following(50)(51): i. Hemodynamic instability ii. Valvular dysfunction with congestive heart failure iii. Need for inotropic agent iv. Severe arrhythmia v. Intracranial mycotic aneurysm vi. Hemorrhagic stroke vii. Altered mental status that is severe or persistent viii. Acute respiratory failure ix. Requirement for frequent hemodynamic measurements x. Acute renal failure xi. Acute ischemic end organ damage (eg, small bowel infarction) xii. Need for acute surgical valve repair or replacement xiii. Severe pulmonary edema (eg, severe mitral regurgitation) h) Pericardial tamponade i) Severe heart failure, indicated by 1 or more of the following(40): i. Hemodynamic instability ii. Respiratory failure iii. Severe arrhythmias iv. Evidence of cardiac ischemia j) Myocarditis, with 1 or more of the following(52)(53)(54)(55): i. Hemodynamic instability ii. Respiratory failure iii. Severe arrhythmias iv. Need for cardiac assist device (eg, left ventricular assist device or extracorporeal membrane oxygenator) k) Status post cardiac arrest(56) IX. Cardiovascular Surgery diagnoses or procedures, including 1 or more of the following (57)(58)(59): a) Acute aortic dissection b) Aortic surgery for 1 or more of the following: i. Thoracic aneurysm ii. Abdominal aneurysm with 1 or more of the following (60): A. Emergency repair B. Severe cardiopulmonary disease C. Dialysis-dependent renal failure D. Need for IV blood pressure control E. Need for ongoing ventilatory support F. Abdominal compartment syndrome G. Perioperative complications, including 1 or more of the followin. Hemodynamic instability 2. Cardiac ischemia or arrhythmia 3. Hypothermia 4. Blood transfusion greater than 3 L 5. Acute lower extremity ischemia 6. Ischemic colitis iii. Aortic coarctation operative excision or repair iv. Aortofemoral or aortoiliac bypass with 1 or more of the following: A. Continued intubation and mechanical ventilation B. Hemodynamic instability C. Need for IV blood pressure control D. Severe cardiopulmonary disease c) Cardiac surgery (eg, CABG, valve replacement) d) Carotid endarterectomy or stent placement with 1 or more of the following: i. Blood pressure less than 100/60 mm Hg or greater than 160/90 mm Hg despite 4 hours of postanesthetic management ii. Need for IV blood pressure control iii. New or progressive neurologic defect iv. Chest pain v. Continued intubation vi. Heart failure vii. Airway compromise by hematoma or vocal cord paralysis e) Heart transplant f) Infrainguinal peripheral vascular surgery with 1 or more of the following: i. Hemodynamic instability ii. Acute complications such as persistent chest pain or respiratory distress iii. Requirement for IV antiarrhythmic or vasoactive agent iv. Requirement for pulmonary artery catheter v. Severe hypertension despite 6 hours of recovery room management g) Complications of any cardiovascular surgery requiring ICU intervention as indicated by 1 or more of the following(61) i. Hemodynamic instability ii. IL with complications (eg, severe arrhythmia, hypotension) iii. Excessive bleeding or severe coagulopathy iv. Respiratory failure v. Renal failure vi. Airway instability or obstruction vii. Neurologic deterioration viii. Infection with likelihood of sepsis syndrome or significant fluid shifts X. Endocrinology diagnoses or procedures, including 1 or more of the following: a) Adrenal crisis with Hemodynamic instability(18)(62)(63) b) Pheochromocytoma with 1 or more of the following(62): i. Hypertensive crisis ii. Postoperative for 24 hours after resection of pheochromocytoma iii. Postoperative Hemodynamic instability iv. Need for IV vasoactive therapy v. Need for invasive arterial or central venous pressure monitoring vi. Organ ischemia c) Diabetic hyperosmolar state with Altered mental status that is severe or persistent(64) d) Diabetic ketoacidosis with 1 or more of the following (64)(65)(66)(67): i. Serum pH less than 7.10 or bicarbonate level less than 10 mEq/L (mmol/L) ii. Rapidly changing electrolytes iii. Significant hypokalemia (eg.ECG changes) iv. Hypotension v. Requirement for large-volume fluid resuscitation vi. Requirement for intravenous insulin administration vii. Requirement for nursing care (eg, glucose checks) beyond capabilities of lower levels of care. viii. Respiratory insufficiency ix. Life-threatening cardiac dysrhythmias x. Altered mental status that is severe or persistent xi. Severe precipitating condition such as sepsis, stroke, or acute IL xii. Child at increased risk of cerebral edema (eg, age younger than 5 years, high BUN) xiii. Child with clinical signs of cerebral edema (eg, headache, Altered mental status, cranial nerve palsy, papilledema, rising blood pressure with slowing heart rate) e) Severe hypoglycemia requiring continuous glucose infusion with frequent adjustment (eg, in response to glucose checks) or glucagon administration (18) f) Hyperthyroidism associated with thyroid storm (also known as thyrotoxic crisis)(18)(68) g) Myxedema with severe precipitating factor (eg, sepsis, myocardial infarction , stroke), or life-threatening neurologic, pulmonary, cardiovascular, electrolyte, or renal sequelae(69) h) Diabetes insipidus that cannot be controlled rapidly (eg, with medication) ( 70) XI. Gastroenterology diagnoses or procedures, including 1 or more of the following;(71) a) Acute diverticulitis with 1 or more of the following(72)(73): i. Active GI bleeding (eg, transfusion requirement greater than 2 units of packed red cells, known coagulopathy) ii. Hemodynamic instability iii. Vital sign abnormality due to infection (eg, peritonitis) b) Esophageal or gastric perforation(74) c) Severe caustic esophageal or gastric injury(75)(76) d) Liver disease complications with 1 or more of the following(77)(78)(79)(80): i. Severe hepatic encephalopathy (eg, stage 3 (somnolent) or higher) ii. Type 1 hepatorenal syndrome iii. Other cirrhosis-associated causes of renal failure (eg, severe hypovolemia , acute tubular necrosis, abdominal compartment syndrome) iv. Hemodynamic instability v. Respiratory insufficiency due to severe ascites vi. Severe electrolyte abnormalities vii. Vital sign abnormality due to infection (eg, bacterial peritonitis) e) Fulminant hepatic failure when aggressive intervention or transplant is anticipated(81) f) Gallbladder or bile duct inflammation (eg, cholangitis or cholecystitis) with 1 or more of the following(82): i. Hemodynamic instability ii. End organ failure (eg, worsening renal function) g) Gastrointestinal hemorrhage (upper or lower) with 1 or more of the following( 72)(83)(84): i. Active ongoing bleeding ii. Transfusion requirement greater than 2 units of packed red cells iii. Bleeding ulcer, visible blood vessel, bleeding (or recently bleeding) esophageal varices seen on endoscopy iv. Hypotension v. Syncope vi. Coagulopathy vii. Hepatic cirrhosis viii. Altered mental status ix. Unstable comorbid condition or end organ dysfunction x. Ischemia due to poor perfusion xi. Need for invasive (eg, pulmonary-artery catheter) hemodynamic monitoring (eg , for patients with severe heart failure or valvular disease) xii. Excessive hematemesis requiring intubation for airway protection h) Severe pancreatitis indicated by 1 or more of the following(85)(86)(87): i. Requirement for aggressive fluid resuscitation ii. Severe electrolyte abnormality iii. Hypotension iv. Persistent tachycardia greater than 120 beats per minute v. Patient at high risk of rapid deterioration, including 1 or more of the following: A. Calculated [place] II score greater than 8 B. Age older than 55 years C. BMI greater than 30 D. Greater than 30% pancreatic necrosis on CT scan E. Admission hematocrit greater than 47% (0.47) vi. Organ failure as indicated by 1 or more of the following: A. Serum creatinine greater than 1.9 mg/dL (168 micromoles/L) B. Urine output less than 50 mL/hour C. Requirement for mechanical ventilation D. Arterial partial pressure of oxygen less than 60 mm Hg (8.0 kPa) despite supplemental oxygen E. PiO2/FiO2 ratio less than 300 vii. Expanding pseudocyst viii. Infected pancreas ix. Need for pain control (eg, IV opioids) not performable at lower level of care x. Pleural effusion xi. Encephalopathy xii. Severe active comorbidities (eg, liver disease) XII. General Surgery diagnoses or procedures, including 1 or more of the following(8)(61)(88): a) Acute abdominal catastrophe (eg, ischemic bowel, perforated viscus, abdominal compartment syndrome) b) Complications of any surgery requiring ICU intervention as indicated by 1 or more of the following: i. Hemodynamic instability ii. IL with complications (eg, severe arrhythmia, Hypotension ) iii. Excessive bleeding or severe coagulopathy iv. Respiratory failure or insufficiency v. Renal failure vi. Airway instability or obstruction vii. Neurologic deterioration viii. Infection with Hypotension or significant fluid shifts c) Multiple trauma with complicating features as indicated by 1 or more of the following(89)(90): i. Serious injury involving more than one organ or system ii. Single organ injury requiring critical care intervention or monitoring (eg, invasive hemodynamic monitoring, frequent vital signs or neurologic checks) iii. Impending acute respiratory failure due to lung contusion, unstable chest wall, aspiration, hemorrhage, tension or open pneumothorax, or fat embolism iv. Facial or neck injury threatening airway patency v. Cardiac contusion vi. Pericardial effusion vii. Bronchial tear viii. Hemodynamic instability ix. Rhabdomyolysis requiring large volume IV fluid resuscitation x. Other significant complicating feature d) Organ transplant(91)(92)(93) e) Esophagectomy(71) f) Pancreatectomy (eg, Whipple procedure) g) Preoperative or postoperative patients requiring ICU intervention, such as hemodynamic optimization, pulmonary artery monitoring, mechanical ventilation, or extensive nursing care h) Obesity surgery patient with 1 or more of the following(94): i. ICU management needs for comorbid conditions (eg, airway issues due to severe sleep apnea) ii. Failed postoperative extubation iii. Intraoperative complications (eg, perforated viscus, bleeding) XIII. Head and Neck Surgery diagnoses or procedures, including 1 or more of the following (95)(96): a) Complications of any surgery requiring ICU intervention as indicated by 1 or more of the following: i. Hemodynamic instability ii. IL with complications (eg, severe arrhythmia, Hypotension ) iii. Excessive bleeding or severe coagulopathy iv. Respiratory failure or insufficiency v. Renal failure vi. Airway instability or obstruction vii. Neurologic deterioration viii. Infection with likelihood of sepsis syndrome or significant fluid shifts b) Preoperative or postoperative patient requiring ICU intervention, such as pulmonary artery monitoring, mechanical ventilation, or extensive nursing care c) Life-threatening infection of head and neck, including 1 or more of the following(81)(82)(83): i. Jeovany's angina (submandibular and lingual cellulitis) ii. Lateral or posterior pharyngeal space infection iii. Peritonsillar abscess iv. Lemierre syndrome (Fusobacterium oropharyngeal infection complicated by jugular vein septic thrombophlebitis) v. Acute epiglottitis vi. Other upper airway infection causing or threatening airway compromise d) Airway or hemodynamic compromise that persists after 3 hours of observation in postanesthesia care unit following nasal, palate (eg, uvulopalatopharyngoplasty or palatoplasty), or tongue surgery for sleep apnea e) Symptomatic upper airway compromise (eg, laryngeal edema, mass) f) Other airway-compromising procedure (eg, posterior nasal packing) XIV. Hematology - Oncology diagnoses or procedures, including chemotherapy administration, with 1 or more of the following(100)(101)(102)(103): a) Hemodynamic instability b) Severe sickle cell crisis indicated by 1 or more of the following(104): i. Hemodynamic instability ii. Evidence of [employer]ANG[employer]AGE [employer]OLOGIST injury (eg, stroke) iii. Altered mental status that is severe or persistent iv. Respiratory distress v. End organ ischemia (eg. intestinal) or failure (eg. renal) vi. Need for treatment (eg, pain control with IV opioids) or monitoring (eg, for renal failure, aplastic crisis) not performable at lower level of care c) Hyperleukocytosis (white blood cell count greater than 100,000/mm3 (100 x109/ L)) and 1 or more of the following: i. Respiratory manifestations (eg, dyspnea, Hypoxemia, acute respiratory distress syndrome) ii. Neurologic manifestations (eg, focal deficit, Altered mental status, seizure ) iii. Cardiac ischemia iv. Other end organ dysfunction (eg, acute kidney injury, visual disturbances) d) Superior vena cava or superior mediastinal syndrome and 1 or more of the following: i. Hemodynamic instability ii. Respiratory symptoms (eg, dyspnea, Tachypnea ) iii. Hypotension iv. Known or suspected pericardial effusion v. Known or suspected airway compromise e) Thrombotic microangiopathy syndrome (eg, thrombotic thrombocytopenic purpura , hemolytic uremic syndrome) and 1 or more of the following (105)(106): i. Acute kidney injury indicated by 1 or more of the following: A. 2-fold rise in serum creatinine from baseline B. Reduction of more than 50% in estimated glomerular filtration rate from baseline C. Urine output less than 0.5 mL/kg/hour for 12 hours despite adequate volume status ii. Altered mental status iii. Seizure iv. Active blood loss v. Other end organ dysfunction (eg, acute respiratory distress syndrome, cardiac ischemia) f) Tumor lysis syndrome with 1 or more of the following: i. Acute kidney injury indicated by 1 or more of the following: A. 2-fold rise in serum creatinine from baseline B. Reduction of more than 50% in estimated glomerular filtration rate from baseline C. Urine output less than 0.5 mL/kg/hour for 12 hours despite adequate volume status ii. Severe electrolyte abnormality iii. Cardiac dysrhythmia iv. Seizure XV. Infectious Disease diagnosis, with 1 or more of the following(1)(5(6))(107)( 108): a) Hemodynamic instability b) Requirement for frequent hemodynamic measurements (eg, arterial catheter, pulmonary artery catheter) c) End organ dysfunction (eg, acute kidney injury, acute respiratory distress syndrome) d) Necrotizing soft tissue infection(109) XVI. Nephrology diagnoses or procedures, including acute or acute on chronic renal insufficiency, with 1 or more of the following(110)(111)(112)(113): a) Severe electrolyte or acid-base disorder b) Acute pulmonary edema c) Hypotension d) Hypertensive emergency (eg, encephalopathy, myocardial ischemia) e) Severe hypertension with need for IV vasodilator (eg, nitroprusside) or arterial catheter for blood pressure monitoring f) Underlying critical illness contributing to renal failure (eg, septic shock, hepatorenal syndrome) g) Need for continuous renal replacement therapy h) Pyelonephritis with Hemodynamic instability (5)(107) XVII. Neurology diagnoses or procedures, including 1 or more of the following( 115)(116)(117): a) Intracranial hypertension requiring 1 or more of the following(118): i. Induced barbiturate coma ii. Pharmacologic paralysis or deep sedation and mechanical ventilation iii. Intracranial pressure or cerebral perfusion pressure monitoring iv. IV mannitol or hypertonic saline v. Frequent serum osmolality measurements b) Seizures with 1 or more of the following(119)(120): i. Status epilepticus ii. Severe electrolyte abnormalities causing seizures iii. Airway compromise requiring or likely to require mechanical ventilation c) Progressive acute neurologic dysfunction requiring or likely to require 1 or more of the following: i. Mechanical ventilation ii. Intracranial pressure or cerebral perfusion pressure monitoring d) B[employer]OLOGIST infection (eg, meningitis, encephalitis) 1 or more of the following[C]( 121)(122)(123)(124): i. Hemodynamic instability ii. Altered mental status that is severe or persistent iii. Respiratory insufficiency iv. Elevated intracranial pressure v. Refractory seizures e) Stroke with 1 or more of the following(125)(126)(127)(128): i. Need for observation after thrombolysis ii. Altered mental status iii. Need for mechanical ventilation iv. Elevated intracranial pressure v. Hypertensive emergency vi. High risk of progressive infarction or deterioration based on CT scan or MRI vii. Hemorrhage f) Acute coma g) Acute spinal cord compression (eg, epidural abscess, hematoma, tumor) h) Acute spontaneous intracranial hemorrhage(127)(129)(130) i) Traumatic brain injury with 1 or more of the following(117)(131)(132): i. Altered mental status that is severe or persistent ii. Cerebral edema iii. Cerebral hemorrhage iv. Increased intracranial pressure j) Drug ingestion or toxic exposure with 1 or more of the following(133)(134)( 135): i. Hemodynamic instability ii. Respiratory depression (eg, new partial pressure of carbon dioxide greater than 45 mm Hg (6.0 kPa)) iii. Patient requires or is likely to require mechanical ventilation. iv. Arrhythmia v. Seizures vi. Altered mental status that is severe or persistent vii. Significant risk for acute deterioration (eg, toxic drug level) viii. Drug-induced Hypothermia or hyperthermia(27) ix. Significant or worsening metabolic acidosis x. Severe hypoglycemia requiring glucose infusion with frequent adjustment or glucagon administration xi. Ongoing antidote administration (eg, continuous naloxone infusion, organophosphate toxicity treatment) xii. Emergency intervention need (eg, dialysis, hemoperfusion, restraints) k) Brain with preparation for organ donation XVIII. Neurosurgery diagnoses or procedures, including 1 or more of the following(118)(136)(137): a) Emergency craniotomy for tumor, hematoma, or trauma b) Elective craniotomy for posterior fossa tumor c) Elective craniotomy (supratentorial) for tumor with 1 or more of the following(138): i. Postoperative neurologic deficit or impaired consciousness 6 hours after completion of procedure ii. Systolic blood pressure less than 110 mm Hg or greater than 180 mm Hg despite therapy iii. Extensive operative blood loss iv. High anesthesia risk (eg, [place] [employer] score greater than 3). See [place] [employer]esthesiologists (ASA) Physical Status Classification System. d) Craniotomy for aneurysm with 1 or more of the following: i. Postoperative neurologic deficit or impaired consciousness 6 hours after completion of procedure ii. Preoperative Good[place]-You grade 3 or higher iii. Systolic blood pressure less than 110 mm Hg or greater than 180 mm Hg despite therapy iv. Intracranial pressure monitoring e) Acute spinal cord injury f) Subarachnoid hemorrhage(127) g) Traumatic brain injury with 1 or more of the following(131)(139): i. Altered mental status that is severe or persistent ii. CT scan showing cerebral edema or hemorrhage iii. Intracranial pressure monitoring h) Complications of surgery requiring ICU intervention as indicated by 1 or more of the following(140): i. Hemodynamic instability ii. IL with complications (eg, severe arrhythmia, Hypotension ) iii. Excessive bleeding or severe coagulopathy iv. Respiratory failure or insufficiency v. Renal failure vi. Airway instability or obstruction vii. Neurologic deterioration viii. Infection with Vital sign abnormality i) Preoperative or postoperative patient requiring ICU intervention, such as pulmonary artery monitoring, mechanical ventilation, or extensive nursing care XIX. Obstetrics andGynecology diagnoses or procedures, including 1 or more of the following (141)(142)(143)(144)(145): a) Severe peripartum condition as indicated by 1 or more of the following: i. Eclampsia ii. Hypertensive emergency iii. HELLP (hemolysis, elevated liver enzymes, and low platelet count) syndrome iv. Pulmonary edema (eg, due to cardiomyopathy) v. Severe arrhythmia vi. Respiratory failure vii. Pulmonary embolism viii. Anaphylactoid syndrome of (amniotic fluid embolus) ix. Ovarian hyperstimulation syndrome[C] x. Acute fatty liver of (hepatic failure) xi. Vital sign abnormality due to infection (eg, puerperal sepsis, chorioamnionitis, septic , pneumonia) xii. Complications such as placental abruption or severe hemorrhage xiii. Severe cardiac complication such as coronary or aortic dissection, or acute coronary syndrome b) Ruptured ectopic c) Complications of any surgery requiring ICU intervention as indicated by 1 or more of the following: i. Hemodynamic instability ii. IL with complications (eg, severe arrhythmia, Hypotension ) iii. Excessive bleeding or severe coagulopathy iv. Respiratory failure or insufficiency v. Renal failure vi. Airway instability or obstruction vii. Neurologic deterioration viii. Infection with Vital sign abnormality d) Preoperative or postoperative patient requiring ICU intervention, such as pulmonary artery monitoring, mechanical ventilation, or extensive nursing care XX. Ophthalmology diagnoses or procedures, including 1 or more of the following( 146): a) Complications of any surgery requiring ICU intervention, such as 1 or more of the following: i. Hemodynamic instability ii. IL with complications (eg, severe arrhythmia, Hypotension ) iii. Excessive bleeding or severe coagulopathy iv. Respiratory failure or insufficiency v. Renal failure vi. Airway instability or obstruction vii. Neurologic deterioration viii. Infection with Vital sign abnormality b) Preoperative or postoperative patient requiring ICU intervention, such as pulmonary artery monitoring, mechanical ventilation, or extensive nursing care XXI. Orthopedics diagnoses or procedures, including 1 or more of the following (147)(148): a) Complications of any surgery requiring ICU intervention as indicated by 1 or more of the following: i. Hemodynamic instability ii. IL with complications (eg, severe arrhythmia, Hypotension ) iii. Excessive bleeding or severe coagulopathy iv. Respiratory failure or insufficiency v. Renal failure vi. Airway instability or obstruction vii. Neurologic deterioration viii. Infection with Vital sign abnormality b) Multiple trauma with complicating features as indicated by 1 or more of the following(89)(90(149): i. Serious injury involving more than one organ or system ii. Single organ injury requiring critical care intervention or monitoring (eg, invasive hemodynamic monitoring, frequent vital signs or neurologic checks) iii. Impending acute respiratory failure due to lung contusion, unstable chest wall, aspiration, hemorrhage, tension or open pneumothorax, or fat embolism iv. Facial or neck injury threatening airway patency v. Cardiac contusion vi. Rhabdomyolysis requiring large volume IV fluid resuscitation vii. Pericardial effusion viii. Bronchial tear ix. Hemodynamic instability x. Other significant complicating feature c) Compartment syndrome diagnosed, suspected, or threatened(150) d) Severe metz with 1 or more of the following(151)(152)(153): i. Hypotension or requirement for aggressive fluid resuscitation ii. Respiratory insufficiency with requirement for high-flow oxygen or mechanical ventilation iii. Carbon monoxide poisoning iv. Life-threatening cardiac, renal, pulmonary, or neurologic dysfunction v. High-voltage (eg, 1000 volts or more) electrical burn vi. Chemical burn vii. Requirement for frequent or intensive debridement and dressing changes; examples include: A. Partial-thickness metz greater than 10% of body surface B. Metz on face, hands, feet, genitalia, perineum, or major joints C. Third-degree metz D. Any burn greater than 15% of body surface area viii. Inhalation lung injury ix. Severe infection x. Concomitant trauma or other medical condition requiring ICU care e) Preoperative or postoperative patient requiring ICU intervention, such as pulmonary artery monitoring, mechanical ventilation, or extensive nursing care XXII. Thoracic Surgery and Pulmonary Disease diagnoses or procedures, including 1 or more of the following: a) Asthma with 1 or more of the following(154)(155)(156)(157)(158): i. Respiratory distress ii. Impending or actual respiratory failure iii. Need for mechanical ventilation iv. Peak expiratory flow rate less than 30% of predicted or personal best v. Peak expiratory flow rate or FEV1 less than 40% predicted after 1 hour of initial treatment vi. Acidosis vii. Persistent or worsening Hypoxemia after initial treatment viii. Hypercapnia (eg, partial pressure of carbon dioxide greater than 43 mm Hg (5.7 kPa)) ix. Altered mental status that is severe or persistent x. Requiring continuous inhaled bronchodilator xi. Cardiac arrhythmias of immediate concern xii. Hypotension xiii. Child 5 years or younger and 1 or more of the following: A. Unable to speak or drink B. Central cyanosis C. Subcostal or subglottic contractions D. Oxygen saturation less than 92% E. Silent chest on auscultation F. Age 0 to 3 years with pulse rate greater than 200 bpm G. Age 4 to 5 years with pulse rate greater than 180 bpm b) COPD with 1 or more of the following(159): i. Need for assisted ventilation ii. Hemodynamic instability iii. Severe dyspnea unresponsive to initial treatment iv. Altered mental status v. Persistent findings despite oxygen and outpatient management, including 1 or more of the following: A. Partial pressure of oxygen less than 40 mm Hg (5.3 kPa) B. Partial pressure of carbon dioxide greater than 60 mm Hg (8.0 kPa) C. pH less than 7.25 D. Worsening Hypoxemia or acidosis c) Cor pulmonale with 1 or more of the following(159)(160)(161)(162)(163): i. Hemodynamic instability ii. Need for IV inotropic or vasoactive agent iii. Need for inhaled nitric oxide or epoprostenol iv. Need for invasive hemodynamic monitoring (eg, central venous, pulmonary artery, or arterial catheter) v. Partial pressure of oxygen less than 40 mm Hg (5.3 kPa) vi. Worsening Hypoxemia or acidosis despite oxygen therapy vii. Unstable atrial tachyarrhythmia viii. Need for assisted ventilation ix. Need for extracorporeal membrane oxygenator or right ventricular assist device d) Aspiration pneumonia with 1 or more of the following(164)(165)(166): i. Acute respiratory distress syndrome (eg, PaO2/FiO2 ratio of 300 or less) ii. Impending or actual respiratory failure iii. Need for invasive or noninvasive mechanical ventilation e) Pneumocystis jiroveci pneumonia with 1 or more of the following(168)(169): i. Hypoxia (eg, PO2 60 mm Hg (8.0 kPa) or less despite oxygen therapy) ii. Impending or actual respiratory failure iii. Need for invasive or noninvasive mechanical ventilation f) Pneumonia in adult with 1 or more of the following(136)(137): i. Need for invasive or noninvasive assisted ventilation ii. Hemodynamic instability iii. 3 or more of the following severity factors: A. PaO2/FiO2 ratio of 310 or less B. Multilobed infiltrates C. Altered mental status D. BUN 20 mg/dL (7.1 mmol/L) or greater E.WBC count less than 4000/mm3 (4 x109/L) F. Platelet count less than 100,000/mm3 (100 x109/L) G. Serum sodium less than 130 mEq/L (mmol/L) H. Temperature less than 96.8 degrees F (36 degrees C) g) Pneumonia in child with 1 or more of the following(170)(171)(172): i. Impending respiratory failure ii. Need for invasive or noninvasive ventilation iii. Hemodynamic instability iv. Pulse oximetry less than 92% on more than 50% inspired oxygen v. Recurrent apnea vi. Altered mental status h) Pulmonary hypertension requiring initiation of parenteral pulmonary vasodilator or trial of inhaled nitric oxide (eg, need for right heart catheterization)(160)(173)(174) i) Impending respiratory failure as indicated by 1 or more of the following: i. Respiratory rate greater than 30 breaths per minute in adult ii. Partial pressure of oxygen less than 60 mm Hg (8.0 kPa) on 50% oxygen or more iii. Partial pressure of carbon dioxide greater than 45 mm Hg (6.0 kPa) with pH less than 7.35 j) Respiratory failure with 1 or more of the following(116)(173)(174): i. Need for invasive or noninvasive mechanical ventilation ii. High likelihood of requiring mechanical ventilation within 24 hours iii. Observation in first several hours immediately after extubation from mechanical ventilation iv. Need for close observation and aggressive therapy, such as suctioning, chest physiotherapy, or inhalation treatments at intervals less than 1 hour v. Pharmacologic ventilatory paralysis k) Venous thromboembolism with need for systemic or catheter-directed thrombolysis (eg, for limb-threatening or organ-threatening thrombosis, obstructive superior vena cava syndrome)( 176)(177)(178) l) Pulmonary embolus with 1 or more of the following(176)(177)(178): i. Hypotension ii. Partial pressure of oxygen less than 60 mm Hg (8.0 kPa) on supplemental oxygen iii. Dangerous arrhythmia iv. Bleeding v. Need for systemic or catheter-directed thrombolysis m) Lobectomy or other major thoracic surgery n) Lung transplant o) Need for extracorporeal membrane oxygenation(179) p) Symptomatic upper airway obstruction (eg, laryngeal edema, mass) q) Massive hemoptysis (eg, greater than 200 mL per day)(180) r) Infection or thrombosis of intravenous device with 1 or more of the following(6)(7)(146): i. Unstable acute complication (eg, pericardial tamponade, tension pneumothorax , active bleeding) ii. Hemodynamic instability iii. Requirement for frequent hemodynamic measurements iv. End organ dysfunction (eg, renal failure, Altered mental status that is severe or persistent ) v. Acute renal complications due to missed dialysis (eg, severe electrolyte abnormalities, uremia, or acidosis) s) Traumatic rib fracture or fractures with 1 or more of the following(182): i. Injury severity score of 19 or greater ii. Respiratory insufficiency iii. Flail chest iv. Sternum fracture v. Vascular injury (eg, heart or great vessels) t) Pleural effusion with 1 or more of the following(183): i. Respiratory insufficiency ii. Hemothorax with active ongoing bleeding iii. Hemodynamic instability iv. Unstable comorbid condition (eg, heart failure) XXIII. Urology diagnoses or procedures, including 1 or more of the following(184 )(185): a) Renal transplant b) Post-obstructive diuresis (eg, following catheterization or stent for obstructive uropathy) greater than 4 L per day requiring large volume fluid replacement and frequent monitoring and replacement of electrolytes(186) c) Complications of any surgery requiring ICU intervention as indicated by 1 or more of the following: i. Hemodynamic instability ii. IL with complications (eg, severe arrhythmia, Hypotension ) iii. Excessive bleeding or severe coagulopathy iv. Respiratory failure or insufficiency v. Renal failure vi. Airway instability or obstruction vii. Neurologic deterioration viii. Infection with Vital sign abnormality d) Preoperative or postoperative patient requiring ICU intervention, such as pulmonary artery monitoring, mechanical ventilation, or extensive nursing care The original [employer] content created by [employer] has been revised. The portions of the content which have been revised are identified through the use of italic text or in bold, and [facility] has neither reviewed nor approved the modified material. All other unmodified content is copyright [employer]. Please see references footnoted in the original [email or web address] edition 2017 Admission Criteria Met: Yes
[2017-08-09] MEDS ORDERED: VASELINE LIP THERAPY TP ONE (10:42)
--- NOTE | 2017-08-09 11:03 | Consultation ---
History of Present Illness - Reason for Consult Consult date: 08/09/17 Hypotension requiring vasopressors Requesting physician: ANH BURKS - History of Present Illness 62 y/o female with ESRD on PD, apparently has systolic CHF and required milrione on an outpatient basis who is admitted to the hospital after complaints of fatigue dizzines and syncopal like symptoms. Found to be hypotensive in the ED requiring vasopressor therapy. Central line placed by ED physician and is currently on 6 of levophed. Past History Past Medical History: arthritis, ESRD, heart failure, hypertension, other ( chronic Pain, Obesity) Past Surgical History: cholecystectomy, total knee replacement, Other (Neck surgery) Social history: , lives with family. denies: smoking, alcohol abuse, prescription drug abuse, IV drug use Family history: CAD, hypertension Medications and Allergies Allergies Allergy/AdvReac Type Severity Reaction Status Date / Time Penicillins Allergy Shortness Verified 09/07/13 07:21 of Breath Home Medications Medication Instructions Recorded Confirmed Last Taken Type Cyclobenzaprine [Flexeril 10 MG 10 mg PO BID 09/07/13 08/09/17 07/29/17 History TAB] HYDROcodone/ACETAMINOPHEN 1 tab PO BID PRN 09/07/13 08/09/17 07/30/17 History [Hydrocodone-Acetaminophnen(Nf) 10/500 mg Tab] buPROPion [Wellbutrin] 150 mg PO DAILY 07/06/14 08/09/17 1 Week Ago History Calcitriol [Rocaltrol] 1 mcg PO QDAY 08/09/17 08/09/17 07/30/17 History FLUoxetine [PROzac] 40 mg PO QDAY 08/09/17 08/09/17 1 Week Ago History Pantoprazole [Protonix] 40 mg PO QDAY 08/09/17 08/09/17 07/30/17 History Potassium Chloride 40 meq PO BID 08/09/17 08/09/17 07/30/17 History Kori-Milka Rx Tablet 1 mg PO 4XD 08/09/17 08/09/17 08/09/17 15:58 History Active Meds: Active Medications Norepinephrine (Levophed Drip 4 Mg/Ns 250 Ml) 4 mg in 250 mls @ 7.5 mls/hr IV TITR GLORIA; 2 MCG/MIN PRN Reason: Protocol Last Admin: 08/09/17 05:22 Dose: 6.66 mcg/min, 24.975 mls/hr Levofloxacin/Dextrose (Levaquin 500mg/100ml) 500 mg in 100 mls @ 100 mls/hr IV Q[facility] Vancomycin HCl (Vancomycin Pharmacy To Dose) 1 each IV PKCONSULT GLORIA PRN Reason: Protocol Exam - Constitutional Vitals: Temp Pulse Resp BP Pulse Ox 98.3 F 87 22 107/52 100 08/09/17 08:00 08/09/17 08:20 08/09/17 08:20 08/09/17 08:20 08/09/17 08:20 Results - Labs CBC & Chem 7: 08/10/17 04:45 08/10/17 04:45 Labs: Abnormal lab results 08/08/17 08/08/17 Range/Units 21:23 21:31 POC ABG pH 7.490 H (7.35-7.45) POC ABG pO2 122 H (80-105) Troponin T 0.133 H* (0.00-0.029) ng/mL HDL Cholesterol 26 L (40-59) mg/dL - Imaging and Cardiology Chest x-ray: image reviewed (Air under the diaphragm, otherwise clear) Assessment and Plan 62 y/o female with hypotension of unknown etiology. 1. Discussed on IT rounds. patient afebrile. Has elevated WBC count. Per CM , admitted 2 weeks ago to [facility] with similar symptoms. Will obtain those records from that admission 2. Ok with abx therapy for now. PD culture was negative, follow up blood cultures 3. Patient has chronic indwelling ivan secondary to stents placed. Ivan should be changed once a month, due for change now. She does have a dirty UA but this could colonzied from chronic catheter. Currently on abx for Gram negative coverage. Change ivan and follow up urine culture 4. consider renal consult for PD 5. Patient normally followed in the [facility] system, needs cards evaluation given hypotension. Although could just be sepsis related from chronic catheter. 6. Wean Levophed for maps>60 CCT 31
[2017-08-09] MEDS ORDERED: VASELINE LIP THERAPY TP PRN (11:21)
[2017-08-09 11:45] LABS: Hematocrit 26.8 % (30.3-42.9); Hemoglobin 8.7 gm/dl (10.1-14.3); Mean Corpuscular HGB Conc 32 % (30-34); Mean Corpuscular Hemoglobin 30 pg (28-32); Mean Corpuscular Volume 92 fl (79-97); Platelet Count 424 K/mm3 (140-440); Red Blood Count 2.93 M/mm3 (3.65-5.03); Red Cell Distribution Width 19.2 % (13.2-15.2); White Blood Count 15.7 K/mm3 (4.5-11.0)
--- NOTE | 2017-08-09 12:37 | Consultation ---
History of Present Illness Consult date: 08/09/17 Requesting physician: RAFAL HILLMAN Consult reason: hypotension History of present illness: The history was obtained partly from the patient and partly from her . She presented to the hospital with a one-day history of generalized weakness and presyncope. She was noted to be hypotensive upon presentation. She is currently on Levophed drip. According to her , the patient has had BPs with systolic blood pressure in the 70s to 80s for a year. Recently, following a hospitalization, she was placed on midodrine which seemed to have helped her BP. However, her claims that she has not been compliant with the medication. Before he goes to work, he tries to give her the medication. However, when she is on her own, she does not take it. She apparently underwent cervical spine decompression in 2013. According to her , since that surgery, she has not been able to walk. She has chronic right lower extremity paresis with milder degree of weakness in the left lower extremity. She denies palpitations, dyspnea or chest pain. Past History Past Medical History: arthritis, ESRD (on PD), other (chronic hypotension) Past Surgical History: cholecystectomy, total knee replacement (bilateral), Other (cervical spine decompression, ureteral stenting and nephrostomy tube placement) Social history: . denies: smoking, alcohol abuse, prescription drug abuse Family history: denies: CAD Medications and Allergies Allergies Allergy/AdvReac Type Severity Reaction Status Date / Time Penicillins Allergy Shortness Verified 09/07/13 07:21 of Breath Home Medications Medication Instructions Recorded Confirmed Last Taken Type Cyclobenzaprine [Flexeril 10 MG 10 mg PO BID 09/07/13 07/14/14 07/13/14 History TAB] 10 MG HYDROcodone/ACETAMINOPHEN 1 tab PO BID PRN 09/07/13 07/14/14 07/13/14 22:00 History [Hydrocodone-Acetaminophnen(Nf) 1 TAB 10/500 mg Tab] Oxybutynin [Ditropan] 10 mg PO BID 09/07/13 07/14/14 07/13/14 History 5 MG traZODone [Desyrel] 100 mg PO QHS 09/07/13 07/14/14 07/12/14 History 100 MG FLUoxetine [PROzac] 60 mg PO QDAY #30 capsule 09/19/13 07/14/14 07/13/14 Rx 20 MG amLODIPine [Norvasc] 5 mg PO DAILY 05/30/14 07/14/14 07/14/14 10:00 History 5 MG buPROPion [Wellbutrin] 150 mg PO DAILY 07/06/14 07/14/14 07/13/14 History 100 MG Active Meds: Active Medications Hydrophilic Ointment (Vaseline Lip Therapy) 1 applic TP DIRECT PRN PRN Reason: DRY LIPS Norepinephrine (Levophed Drip 4 Mg/Ns 250 Ml) 4 mg in 250 mls @ 7.5 mls/hr IV TITR GLORIA; 2 MCG/MIN PRN Reason: Protocol Last Admin: 08/09/17 05:22 Dose: 6.66 mcg/min, 24.975 mls/hr Levofloxacin/Dextrose (Levaquin 500mg/100ml) 500 mg in 100 mls @ 100 mls/hr IV Q48H GLORIA Review of Systems Constitutional: no fever, no chills Ears, nose, mouth and throat: no ear pain, no ear discharge, no sore throat Cardiovascular: lightheadedness, no chest pain, no orthopnea, no palpitations, no shortness of breath Respiratory: no cough, no hemoptysis, no shortness of breath Gastrointestinal: abdominal pain, no nausea, no vomiting, no diarrhea, no constipation Genitourinary Female: no dysuria, no urinary frequency Rectal: no pain, no bleeding Musculoskeletal: no neck stiffness, no neck pain, no myalgias Integumentary: no rash, no pruritis Neurological: weakness, no headaches Endocrine: no cold intolerance, no heat intolerance Hematologic/Lymphatic: no easy bruising, no easy bleeding Allergic/Immunologic: no urticaria, no wheezing Physical Examination Vital Signs Last Vital Signs Temp 98.2 F 08/09/17 12:00 Pulse 93 H 08/09/17 12:10 Resp 20 08/09/17 12:10 BP 104/47 08/09/17 12:10 Pulse Ox 100 08/09/17 12:10 General appearance: no acute distress HEENT: Positive: EOMI, Normocephaly, Mucus Membranes Moist Neck: Positive: neck supple, trachea midline Cardiac: Positive: Reg Rate and Rhythm, S1/S2 Lungs: Positive: clear to auscultation Neuro: Positive: Other (right lower extremity weakness) Abdomen: Positive: Soft, Active Bowel Sounds, Tender (mildly tender) Skin: Positive: Clear. Negative: Rash Musculoskeletal: Normal Range of Motion Extremities: Absent: edema Results 08/09/17 11:19 08/08/17 14:11 Lipids 08/08/17 Range/Units 21:23 Triglycerides 62 (2-149) mg/dL Cholesterol 91 (50-199) mg/dL HDL Cholesterol 26 L (40-59) mg/dL Cholesterol/HDL Ratio 3.50 % CBC 08/09/17 Range/Units 11:19 WBC 15.7 H (4.5-11.0) K/mm3 RBC 2.93 L (3.65-5.03) M/mm3 Hgb 8.7 L (10.1-14.3) gm/dl Hct 26.8 L (30.3-42.9) % Plt Count 424 (140-440) K/mm3 - Imaging and Cardiology EKG: image reviewed EKG interpretations - Telemetry EKG Rhythm: Sinus Rhythm - EKG Sinus rhythms and dysrhythmias: sinus rhythm Repolarization changes or abnormalities: ST or T wave suggestive of ischemia Assessment and Plan She will probably benefit from resumption of midodrine based on her history. Obtain echocardiogram. Repeat additional set of troponin. Elevation at this time is of uncertain significance. - Patient Problems (1) Hypotension Current Visit: Yes Status: Acute Qualifiers: Hypotension type: H Trimester: T (2) Pre-syncope Current Visit: Yes Status: Acute (3) Autonomic dysfunction Current Visit: Yes Status: Acute (4) Elevated troponin level Current Visit: Yes Status: Acute (5) Morbid obesity Current Visit: Yes Status: Chronic (6) ESRD on peritoneal dialysis Current Visit: Yes Status: Chronic
[2017-08-09] MEDS ORDERED: PROAMATINE PO ONE (12:45)
--- NOTE | 2017-08-09 12:46 | Consultation ---
History of Present Illness - Reason for Consult Consult date: 08/09/17 - History of Present Illness 62 YO Female with MO, ESRD-PD(Daily), HTN, OA, Ischemic Cardiomyopathy currently on Milrinone,Chronic Pain presents to ED for evaluation. Pt states that she awoke this morning feeling lightheaded. Pt states that she attempted to get up from a seated position and began feeling lightheaded, and nearly passed out. Pt states that she also has been experiencing pain in her abdomen for the past 2 days, with worsening symptoms over the past 1 day. Pt denies fever, chills, CP, Palpitations, NVD, trauma, productive cough, BRBPR, productive cough, or recent ill contacts. Pt seen and evaluated in ED and found to have sepsis, acute on chronic respiratory failure, and hypotension. Pt at bedside diring exam and interview. Pt counseled regarding poor prognosis. Pt declined admission to ICU, Central and arterial line placement. Pt states that she wants to sign out AMA, and wants to return to [facility] for further care. Pt informed of risk of , and worsening disease if she leaves AMA. In addition, pt informed that she my not survive transport in a private vehicle. [place] physician contacted, and will not accept patient transfer due to hemodynamic instability. at bedside nurse removed ivan & could not reinsert due to pt size [address]----needed assistance with legs for placement irrigated with 10cc saline A/P retention continue to change ivan q 4-6 weeks Past History Past Medical History: arthritis, ESRD (on PD), other (chronic hypotension) Past Surgical History: cholecystectomy, total knee replacement (bilateral), Other (cervical spine decompression, ureteral stenting and nephrostomy tube placement) Social history: . denies: smoking, alcohol abuse, prescription drug abuse Family history: denies: CAD Medications and Allergies Allergies Allergy/AdvReac Type Severity Reaction Status Date / Time Penicillins Allergy Shortness Verified 09/07/13 07:21 of Breath Home Medications Medication Instructions Recorded Confirmed Last Taken Type Cyclobenzaprine [Flexeril 10 MG 10 mg PO BID 09/07/13 07/14/14 07/13/14 History TAB] 10 MG HYDROcodone/ACETAMINOPHEN 1 tab PO BID PRN 09/07/13 07/14/14 07/13/14 22:00 History [Hydrocodone-Acetaminophnen(Nf) 1 TAB 10/500 mg Tab] Oxybutynin [Ditropan] 10 mg PO BID 09/07/13 07/14/14 07/13/14 History 5 MG traZODone [Desyrel] 100 mg PO QHS 09/07/13 07/14/14 07/12/14 History 100 MG FLUoxetine [PROzac] 60 mg PO QDAY #30 capsule 09/19/13 07/14/14 07/13/14 Rx 20 MG amLODIPine [Norvasc] 5 mg PO DAILY 05/30/14 07/14/14 07/14/14 10:00 History 5 MG buPROPion [Wellbutrin] 150 mg PO DAILY 07/06/14 07/14/14 07/13/14 History 100 MG Active Meds: Active Medications Hydrophilic Ointment (Vaseline Lip Therapy) 1 applic TP DIRECT PRN PRN Reason: DRY LIPS Norepinephrine (Levophed Drip 4 Mg/Ns 250 Ml) 4 mg in 250 mls @ 7.5 mls/hr IV TITR GLORIA; 2 MCG/MIN PRN Reason: Protocol Last Admin: 08/09/17 05:22 Dose: 6.66 mcg/min, 24.975 mls/hr Levofloxacin/Dextrose (Levaquin 500mg/100ml) 500 mg in 100 mls @ 100 mls/hr IV Q48H GLORIA Exam - Constitutional Vitals: Temp Pulse Resp BP Pulse Ox 98.2 F 93 H 20 104/47 100 08/09/17 12:00 08/09/17 12:10 08/09/17 12:10 08/09/17 12:10 08/09/17 12:10 Results - Labs CBC & Chem 7: 08/09/17 11:19 08/08/17 14:11 Labs: Abnormal lab results 08/08/17 08/08/17 08/09/17 Range/Units 21:23 21:31 11:19 WBC 15.7 H (4.5-11.0) K/mm3 RBC 2.93 L (3.65-5.03) M/mm3 Hgb 8.7 L (10.1-14.3) gm/dl Hct 26.8 L (30.3-42.9) % RDW 19.2 H (13.2-15.2) % POC ABG pH 7.490 H (7.35-7.45) POC ABG pO2 122 H (80-105) Troponin T 0.133 H* (0.00-0.029) ng/mL HDL Cholesterol 26 L (40-59) mg/dL
[2017-08-09] MEDS ORDERED: TYLENOL ONE (16:10)
[2017-08-09] MEDS: MORPHINE IV PRN (17:04)
[2017-08-09] MEDS: ZOFRAN IV PRN (17:04)
--- NOTE | 2017-08-09 17:05 | Progress Note ---
Assessment and Plan Assessment and plan: Sepsis with hypotension versus chronic hypeotension - Patient is on IV fluids, IV antibiotics, pressors, midodrin - Cardiology consulted and recommended echo - Patient has elevated troponin level and repeat level is also high End-stage renal disease on PD - Nephrology Dr Cohen consulted History of cervical surgery and postoperative is wheelchair bound UTI on the setting of Indwelling catheter - Urology was consulted and put the ivan cathter Poor oral intake - GI consulted DVT prophylaxis Disposition - Continue ICU care History Interval history: Patient was seen and evaluated this morning, patient is wheelchair bound, hypotensive. Hospitalist Physical - Physical exam Narrative exam: Not in cardiopulmonary distress. The patient is obese. Vital signs as documented. Head exam is unremarkable. No scleral icterus . Neck is without jugular venous distension, thyromegaly, or carotid bruits. Lungs are clear to auscultation. Cardiac exam reveals regular rate and Rhythm. First and second heart sounds normal. No murmurs, rubs or gallops. Abdominal exam reveals PD catheter in Place. Extremities ulcer on the right leg. CLINICAL DATA RESEARCH: Alert and oriented 3. Paraparesis. - Constitutional Vitals: Temp Pulse Resp BP Pulse Ox 98.8 F 98 H 20 122/57 99 08/09/17 16:00 08/09/17 16:41 08/09/17 16:41 08/09/17 16:41 08/09/17 16:41 General appearance: Present: no acute distress Results - Labs CBC & Chem 7: 08/09/17 11:19 08/08/17 14:11 Labs: Laboratory Last Values WBC 15.7 K/mm3 (4.5-11.0) H 08/09/17 11:19 RBC 2.93 M/mm3 (3.65-5.03) L 08/09/17 11:19 Hgb 8.7 gm/dl (10.1-14.3) L 08/09/17 11:19 Hct 26.8 % (30.3-42.9) L 08/09/17 11:19 MCV 92 fl (79-97) 08/09/17 11:19 MCH 30 pg (28-32) 08/09/17 11:19 MCHC 32 % (30-34) 08/09/17 11:19 RDW 19.2 % (13.2-15.2) H 08/09/17 11:19 Plt Count 424 K/mm3 (140-440) 08/09/17 11:19 Lymph % (Auto) 5.6 % (13.4-35.0) L 08/08/17 14:59 Jack % (Auto) 13.4 % (0.0-7.3) H 08/08/17 14:59 Eos % (Auto) 1.1 % (0.0-4.3) 08/08/17 14:59 Baso % (Auto) 0.2 % (0.0-1.8) 08/08/17 14:59 Lymph # 1.0 K/mm3 (1.2-5.4) L 08/08/17 14:59 Jack # 2.3 K/mm3 (0.0-0.8) H 08/08/17 14:59 Eos # 0.2 K/mm3 (0.0-0.4) 08/08/17 14:59 Baso # 0.0 K/mm3 (0.0-0.1) 08/08/17 14:59 Seg Neutrophils % 79.7 % (40.0-70.0) H 08/08/17 14:59 Seg Neutrophils # 13.5 K/mm3 (1.8-7.7) H 08/08/17 14:59 PT 14.7 Sec. (12.2-14.9) 08/08/17 14:59 INR 1.09 (0.87-1.13) 08/08/17 14:59 APTT 31.0 Sec. (24.2-36.6) 08/08/17 14:09 POC ABG pH 7.490 (7.35-7.45) H 08/08/17 21:31 POC ABG pCO2 35.4 (35-45) 08/08/17 21:31 POC ABG pO2 122 (80-105) H 08/08/17 21:31 POC ABG HCO3 26.9 08/08/17 21:31 POC ABG Total CO2 28 08/08/17 21:31 POC ABG O2 Sat 99 08/08/17 21:31 POC ABG Base Excess 4 08/08/17 21:31 VBG pH 7.462 (7.320-7.420) H 08/08/17 14:52 FiO2 28 % 08/08/17 21:31 Sodium 134 mmol/L (137-145) L 08/08/17 14:11 Potassium 3.2 mmol/L (3.6-5.0) L 08/08/17 14:11 Chloride 93.9 mmol/L (98-107) L 08/08/17 14:11 Carbon Dioxide 24 mmol/L (22-30) 08/08/17 14:11 Anion Gap 19 mmol/L 08/08/17 14:11 BUN 21 mg/dL (7-17) H 08/08/17 14:11 Creatinine 5.4 mg/dL (0.7-1.2) H 08/08/17 14:11 Estimated GFR 10 ml/min 08/08/17 14:11 BUN/Creatinine Ratio 3.88 % 08/08/17 14:11 Glucose 145 mg/dL (65-100) H 08/08/17 14:11 Lactic Acid 0.70 mmol/L (0.7-2.0) 08/09/17 05:00 Calcium 7.4 mg/dL (8.4-10.2) L 08/08/17 14:11 Phosphorus 3.60 mg/dL (2.5-4.5) 08/08/17 14:11 Magnesium 1.20 mg/dL (1.7-2.3) L 08/08/17 14:11 Total Bilirubin 0.50 mg/dL (0.1-1.2) 08/08/17 14:11 Direct Bilirubin 0.2 mg/dL (0-0.2) 08/08/17 14:11 Indirect Bilirubin 0.3 mg/dL 08/08/17 14:11 AST 12 units/L (5-40) 08/08/17 14:11 ALT 11 units/L (7-56) 08/08/17 14:11 Alkaline Phosphatase 148 units/L (35-129) H 08/08/17 14:11 Ammonia 25.0 umol/L (25-60) 08/08/17 14:52 Troponin T 0.132 ng/mL (0.00-0.029) H* 08/09/17 13:25 NT-Pro-B Natriuret Pep 6156 pg/mL (0-900) H 08/08/17 14:11 Total Protein 5.0 g/dL (6.3-8.2) L 08/08/17 14:11 Albumin 1.5 g/dL (3.9-5) L 08/08/17 14:11 Albumin/Globulin Ratio 0.4 % 08/08/17 14:11 Triglycerides 62 mg/dL (2-149) 08/08/17 21:23 Cholesterol 91 mg/dL (50-199) 08/08/17 21:23 LDL Cholesterol Direct 53 mg/dL (50-130) 08/08/17 21:23 HDL Cholesterol 26 mg/dL (40-59) L 08/08/17 21:23 Cholesterol/HDL Ratio 3.50 % 08/08/17 21:23 TSH 6.580 mlU/mL (0.270-4.200) H 08/08/17 14:22 Free T4 1.46 ng/dL (0.76-1.46) 08/08/17 14:22 Urine Color Yellow (Yellow) 08/08/17 20:15 Urine Turbidity Turbid (Clear) 08/08/17 20:15 Urine pH 8.0 (5.0-7.0) H 08/08/17 20:15 Ur Specific Cuddy 1.015 (1.003-1.030) 08/08/17 20:15 Urine Protein 100 mg/dl mg/dL (Negative) 08/08/17 20:15 Urine Glucose (UA) Neg mg/dL (Negative) 08/08/17 20:15 Urine Ketones Neg mg/dL (Negative) 08/08/17 20:15 Urine Blood Mod (Negative) 08/08/17 20:15 Urine Nitrite Neg (Negative) 08/08/17 20:15 Urine Bilirubin Neg (Negative) 08/08/17 20:15 Urine Urobilinogen < 2.0 mg/dL (<2.0) 08/08/17 20:15 Ur Leukocyte Esterase Lg (Negative) 08/08/17 20:15 Urine WBC (Auto) 24.0 /HPF (0.0-6.0) H 08/08/17 20:15 Urine RBC (Auto) 3.0 /HPF (0.0-6.0) 08/08/17 20:15 U Epithel Cells (Auto) 3.0 /HPF (0-13.0) 08/08/17 20:15 Urine Bacteria (Auto) 4+ /HPF (Negative) 08/08/17 20:15 Urine Mucus 3+ /HPF 08/08/17 20:15 Fluid Type Peritoneal 08/08/17 18:18 Fluid Color Straw 08/08/17 18:18 Fluid Appearance Clear 08/08/17 18:18 Fluid pH 7.74 08/08/17 18:18 Fluid WBC 4 /mm3 08/08/17 18:18 Fluid RBC 1 /mm3 08/08/17 18:18 Fluid Seg Neutrophils 12 % 08/08/17 18:18 Fluid Lymphocytes 0 % 08/08/17 18:18 Fluid Reactive Lymphs 0 % 08/08/17 18:18 Fluid Monocytes 1 % 08/08/17 18:18 Fluid Eosinophils 0 % 08/08/17 18:18 Fluid Basophils 0 % 08/08/17 18:18 Blood Type O POSITIVE 08/08/17 14:52 Antibody Screen Negative 08/08/17 14:52
[2017-08-09] MEDS: PROAMATINE PO SCH (20:02)
[2017-08-09] MEDS ORDERED: AMBIEN PO PRN (23:12)
[2017-08-09] MEDS ORDERED: ALUM-MAG HYDROX-SIMETH 200-200-20MG/5ML PO PRN (23:13)
[2017-08-10 05:23] LABS: Hemoglobin 8.9 gm/dl (10.1-14.3); Mean Corpuscular HGB Conc 33 % (30-34); Mean Corpuscular Hemoglobin 30 pg (28-32); Mean Corpuscular Volume 91 fl (79-97); Platelet Count 395 K/mm3 (140-440); Red Blood Count 2.97 M/mm3 (3.65-5.03); Red Cell Distribution Width 19.2 % (13.2-15.2); White Blood Count 15.5 K/mm3 (4.5-11.0)
[2017-08-10 05:43] LABS: Albumin 1.4 g/dL (3.9-5); Albumin/Globulin Ratio 0.4 %; BUN/Creatinine Ratio 3.53; Bilirubin,Total 0.5 mg/dL (0.1-1.2); Calcium 7.3 mg/dL (8.4-10.2); Chloride 97.3 mmol/L (98-107); Potassium 3.3 mmol/L (3.6-5.0); Total Protein 4.8 g/dL (6.3-8.2)
[2017-08-10 06:33] LABS: Blastocytes % (Manual) 0 %; Toxic Vacuolation Rare
[2017-08-10 06:34] LABS: Anisocytosis 1+; Diff Status Complete; Hypochromasia 1+
--- NOTE | 2017-08-10 08:17 | Progress Note ---
Assessment and Plan bp remains low norepi still infusing trop mildly elevated but no sig rise or fall no new card rec echo pending continue current mgt Subjective Date of service: 08/10/17 Interval history: resting quietly. no acute distress Objective Vital Signs Temp Pulse Resp BP Pulse Ox 08/10/17 06:21 99 H 22 100/53 100 08/10/17 06:11 98 H 21 110/58 99 08/10/17 06:00 98 H 22 110/58 100 08/10/17 05:51 97 H 22 112/61 99 08/10/17 05:41 96 H 22 108/63 99 08/10/17 05:30 97 H 22 108/63 100 08/10/17 05:21 96 H 22 100/57 100 08/10/17 05:11 95 H 21 104/57 100 08/10/17 05:00 97 H 22 104/57 100 08/10/17 04:51 97 H 23 105/41 100 08/10/17 04:41 97 H 21 110/50 100 08/10/17 04:31 97 H 20 110/50 100 08/10/17 04:21 95 H 22 121/56 99 08/10/17 04:11 96 H 22 107/48 100 08/10/17 04:01 96 H 22 107/48 99 08/10/17 03:51 96 H 22 113/48 100 08/10/17 03:41 94 H 22 99/50 98 08/10/17 03:30 94 H 20 113/50 100 08/10/17 03:21 95 H 22 95/52 100 08/10/17 03:11 94 H 21 110/50 100 08/10/17 03:07 98.7 F 08/10/17 03:00 93 H 22 110/50 100 08/10/17 02:51 95 H 22 99/50 100 08/10/17 02:41 97 H 21 95/52 100 08/10/17 02:30 96 H 22 95/52 100 08/10/17 02:21 96 H 22 108/43 100 08/10/17 02:11 94 H 20 105/47 100 08/10/17 02:00 95 H 22 105/47 100 08/10/17 01:51 100 H 20 114/47 99 08/10/17 01:41 98 H 21 126/56 98 08/10/17 01:30 98 H 21 126/56 100 08/10/17 01:21 100 H 22 114/60 99 08/10/17 01:11 99 H 23 119/51 100 08/10/17 01:00 98 H 23 119/51 100 08/10/17 00:51 98 H 23 111/55 100 08/10/17 00:41 97 H 22 105/50 100 08/10/17 00:30 99 H 22 105/50 99 08/10/17 00:21 99 H 21 117/53 100 08/10/17 00:11 100 H 23 111/53 99 08/10/17 00:00 102 H 22 111/53 99 08/09/17 23:51 100 H 23 115/55 99 08/09/17 23:47 100 H 21 115/55 99 08/09/17 23:41 101 H 24 120/60 100 08/09/17 23:31 99.1 F 08/09/17 23:30 102 H 24 120/60 99 08/09/17 23:21 102 H 19 129/57 99 08/09/17 23:11 102 H 20 106/55 99 08/09/17 23:00 102 H 23 106/55 100 08/09/17 22:51 100 H 25 H 116/58 100 08/09/17 22:41 102 H 22 128/60 100 08/09/17 22:30 103 H 23 128/60 100 08/09/17 22:21 102 H 21 121/51 99 08/09/17 22:11 102 H 20 124/55 100 08/09/17 22:00 102 H 24 124/55 99 08/09/17 21:51 102 H 20 128/50 100 08/09/17 21:41 103 H 20 111/59 100 08/09/17 21:30 102 H 22 111/59 100 08/09/17 21:21 99 H 22 125/57 100 08/09/17 21:11 101 H 21 109/55 100 08/09/17 21:00 101 H 22 109/55 99 08/09/17 20:51 99 H 22 119/55 99 08/09/17 20:41 100 H 22 127/57 100 08/09/17 20:30 100 H 22 127/57 100 08/09/17 20:21 100 H 22 121/57 100 08/09/17 20:11 98 H 21 121/57 100 08/09/17 20:00 100 H 22 121/57 99 08/09/17 19:51 100 H 23 123/53 100 08/09/17 19:41 99 H 24 123/53 100 08/09/17 19:30 99 H 21 123/53 99 08/09/17 19:27 98.9 F 08/09/17 19:21 101 H 23 119/57 99 08/09/17 19:11 99 H 24 113/52 99 08/09/17 19:00 98 H 23 113/52 100 08/09/17 18:51 98 H 22 113/45 99 08/09/17 18:41 98 H 22 122/49 99 08/09/17 18:30 98 H 24 122/49 99 08/09/17 18:21 100 H 23 117/55 99 08/09/17 18:11 99 H 23 119/51 99 08/09/17 18:00 98 H 21 119/51 100 08/09/17 17:51 98 H 21 108/51 100 08/09/17 17:41 98 H 25 H 123/55 99 08/09/17 17:30 99 H 23 123/55 99 08/09/17 17:21 97 H 22 111/51 100 08/09/17 17:11 99 H 19 106/52 99 08/09/17 17:00 99 H 22 106/52 100 08/09/17 16:51 97 H 23 119/56 99 08/09/17 16:41 98 H 20 122/57 99 08/09/17 16:30 99 H 21 122/57 99 08/09/17 16:21 96 H 21 118/62 100 08/09/17 16:11 105 H 21 116/52 100 08/09/17 16:00 98.8 F 98 H 22 116/52 100 08/09/17 15:51 99 H 22 116/53 100 08/09/17 15:41 101 H 24 117/51 100 08/09/17 15:30 98 H 26 H 117/51 100 17 15:21 97 H 20 110/50 100 08/09/17 15:11 98 H 22 108/52 100 08/09/17 15:00 97 H 20 108/52 100 08/09/17 14:50 98 H 21 119/43 100 08/09/17 14:40 95 H 21 121/52 99 08/09/17 14:30 95 H 22 121/52 100 08/09/17 14:20 94 H 23 111/56 100 08/09/17 14:10 95 H 19 104/52 100 08/09/17 14:00 93 H 21 104/52 100 08/09/17 13:50 93 H 21 108/46 100 08/09/17 13:40 93 H 15 101/54 99 08/09/17 13:30 96 H 20 101/54 100 08/09/17 13:20 94 H 19 111/51 99 08/09/17 13:10 92 H 20 108/47 98 08/09/17 13:00 93 H 22 108/47 98 08/09/17 12:50 93 H 22 103/54 100 08/09/17 12:40 96 H 19 107/49 100 08/09/17 12:30 92 H 20 107/49 98 08/09/17 12:20 92 H 19 113/49 97 08/09/17 12:10 93 H 20 104/47 100 08/09/17 12:00 98.2 F 91 H 20 104/47 99 08/09/17 11:50 92 H 20 109/52 99 08/09/17 11:40 93 H 22 117/55 99 08/09/17 11:30 96 H 22 97/54 100 08/09/17 11:20 93 H 19 108/60 100 08/09/17 11:10 90 18 106/51 100 08/09/17 11:00 95 H 22 106/51 100 08/09/17 10:50 94 H 19 97/54 100 08/09/17 10:40 92 H 24 109/53 100 08/09/17 10:30 90 21 109/53 100 08/09/17 10:20 90 22 107/51 100 08/09/17 10:10 90 21 106/51 100 08/09/17 10:00 89 19 106/51 100 08/09/17 09:50 89 20 104/48 100 08/09/17 09:40 88 21 106/50 100 08/09/17 09:30 88 21 106/50 100 08/09/17 09:20 89 22 105/51 08/09/17 09:10 89 17 88/58 08/09/17 09:00 90 18 88/58 08/09/17 08:50 92 H 21 97/54 08/09/17 08:40 86 18 108/40 08/09/17 08:30 87 21 108/40 08/09/17 08:20 87 22 107/52 100 - Physical Examination HEENT: Positive: EOMI, Normocephaly, Mucus Membranes Moist Neck: Positive: neck supple, trachea midline Cardiac: Positive: Reg Rate and Rhythm. Negative: S3 Lungs: Positive: clear to auscultation Neuro: Positive: Other (right lower extremity weakness) Abdomen: Positive: Soft, Active Bowel Sounds, Tender (mildly tender) Skin: Positive: Clear. Negative: Rash Musculoskeletal: Normal Range of Motion Extremities: Absent: edema - Labs and Meds Cardiac Enzymes 08/10/17 Range/Units 04:45 AST 10 (5-40) units/L CBC 08/09/17 08/10/17 Range/Units 11:19 04:45 WBC 15.7 H 15.5 H (4.5-11.0) K/mm3 RBC 2.93 L 2.97 L (3.65-5.03) M/mm3 Hgb 8.7 L 8.9 L (10.1-14.3) gm/dl Hct 26.8 L 27.0 L (30.3-42.9) % Plt Count 424 395 (140-440) K/mm3 Comprehensive Metabolic Panel 08/10/17 Range/Units 04:45 Sodium 137 (137-145) mmol/L Potassium 3.3 L (3.6-5.0) mmol/L Chloride 97.3 L (98-107) mmol/L Carbon Dioxide 21 L (22-30) mmol/L BUN 23 H (7-17) mg/dL Creatinine 6.5 H (0.7-1.2) mg/dL Glucose 73 (65-100) mg/dL Calcium 7.3 L (8.4-10.2) mg/dL AST 10 (5-40) units/L ALT 11 (7-56) units/L Alkaline Phosphatase 138 H (35-129) units/L Total Protein 4.8 L (6.3-8.2) g/dL Albumin 1.4 L (3.9-5) g/dL - Imaging and Cardiology EKG: image reviewed - EKG Sinus rhythms and dysrhythmias: sinus rhythm Repolarization changes or abnormalities: ST or T wave suggestive of ischemia
[2017-08-10] MEDS: PROAMATINE PO SCH ×3 (08:28→20:48)
[2017-08-10] MEDS ORDERED: POTASSIUM CHLORIDE FEEDTUBE ONE (08:31)
--- NOTE | 2017-08-10 10:42 | Progress Note ---
Assessment and Plan 62 y/o female with hypotension of unknown etiology. 1. Can likely descalate abx therapy vs stopping 2. Ok with midodrine as ordered by Cards 3. Patient has chronic indwelling ivan secondary to stents placed. Ivan should be changed once a month, due for change now. She does have a dirty UA but this could colonzied from chronic catheter. Currently on abx for Gram negative coverage. Change ivan and follow up urine culture 4. consider renal consult for PD 5. stable for transfer out of ICU, discussed with IMS. Nursing must be clear in report given about BP Subjective Date of service: 08/10/17 Interval history: No acute events. Levo off. Back on home dose of midodrine Objective - Constitutional Vitals: Vital Signs - 12hr 08/09/17 08/09/17 08/09/17 22:41 22:51 23:00 Temperature Pulse Rate 102 H 100 H 102 H Pulse Rate [ From Monitor] Respiratory 22 25 H 23 Rate Blood Pressure 128/60 116/58 106/55 O2 Sat by Pulse 100 100 100 Oximetry 08/09/17 08/09/17 08/09/17 23:11 23:21 23:30 Temperature Pulse Rate 102 H 102 H 102 H Pulse Rate [ From Monitor] Respiratory 20 19 24 Rate Blood Pressure 106/55 129/57 120/60 O2 Sat by Pulse 99 99 99 Oximetry 08/09/17 08/09/17 08/09/17 23:31 23:41 23:47 Temperature 99.1 F Pulse Rate 101 H 100 H Pulse Rate [ From Monitor] Respiratory 24 21 Rate Blood Pressure 120/60 115/55 O2 Sat by Pulse 100 99 Oximetry 08/09/17 08/10/17 08/10/17 23:51 00:00 00:11 Temperature Pulse Rate 100 H 102 H 100 H Pulse Rate [ From Monitor] Respiratory 23 22 23 Rate Blood Pressure 115/55 111/53 111/53 O2 Sat by Pulse 99 99 99 Oximetry 08/10/17 08/10/17 08/10/17 00:21 00:30 00:41 Temperature Pulse Rate 99 H 99 H 97 H Pulse Rate [ From Monitor] Respiratory 21 22 22 Rate Blood Pressure 117/53 105/50 105/50 O2 Sat by Pulse 100 99 100 Oximetry 08/10/17 08/10/17 08/10/17 00:51 01:00 01:11 Temperature Pulse Rate 98 H 98 H 99 H Pulse Rate [ From Monitor] Respiratory 23 23 23 Rate Blood Pressure 111/55 119/51 119/51 O2 Sat by Pulse 100 100 100 Oximetry 08/10/17 08/10/17 08/10/17 01:21 01:30 01:41 Temperature Pulse Rate 100 H 98 H 98 H Pulse Rate [ From Monitor] Respiratory 22 21 21 Rate Blood Pressure 114/60 126/56 126/56 O2 Sat by Pulse 99 100 98 Oximetry 08/10/17 08/10/17 08/10/17 01:51 02:00 02:11 Temperature Pulse Rate 100 H 95 H 94 H Pulse Rate [ From Monitor] Respiratory 20 22 20 Rate Blood Pressure 114/47 105/47 105/47 O2 Sat by Pulse 99 100 100 Oximetry 08/10/17 08/10/17 08/10/17 02:21 02:30 02:41 Temperature Pulse Rate 96 H 96 H 97 H Pulse Rate [ From Monitor] Respiratory 22 22 21 Rate Blood Pressure 108/43 95/52 95/52 O2 Sat by Pulse 100 100 100 Oximetry 08/10/17 08/10/17 08/10/17 02:51 03:00 03:07 Temperature 98.7 F Pulse Rate 95 H 93 H Pulse Rate [ From Monitor] Respiratory 22 22 Rate Blood Pressure 99/50 110/50 O2 Sat by Pulse 100 100 Oximetry 08/10/17 08/10/17 08/10/17 03:11 03:21 03:30 Temperature Pulse Rate 94 H 95 H 94 H Pulse Rate [ From Monitor] Respiratory 21 22 20 Rate Blood Pressure 110/50 95/52 113/50 O2 Sat by Pulse 100 100 100 Oximetry 08/10/17 08/10/17 08/10/17 03:41 03:51 04:01 Temperature Pulse Rate 94 H 96 H 96 H Pulse Rate [ From Monitor] Respiratory 22 22 22 Rate Blood Pressure 99/50 113/48 107/48 O2 Sat by Pulse 98 100 99 Oximetry 08/10/17 08/10/17 08/10/17 04:11 04:21 04:31 Temperature Pulse Rate 96 H 95 H 97 H Pulse Rate [ From Monitor] Respiratory 22 22 20 Rate Blood Pressure 107/48 121/56 110/50 O2 Sat by Pulse 100 99 100 Oximetry 08/10/17 08/10/17 08/10/17 04:41 04:51 05:00 Temperature Pulse Rate 97 H 97 H 97 H Pulse Rate [ From Monitor] Respiratory 21 23 22 Rate Blood Pressure 110/50 105/41 104/57 O2 Sat by Pulse 100 100 100 Oximetry 08/10/17 08/10/17 08/10/17 05:11 05:21 05:30 Temperature Pulse Rate 95 H 96 H 97 H Pulse Rate [ From Monitor] Respiratory 21 22 22 Rate Blood Pressure 104/57 100/57 108/63 O2 Sat by Pulse 100 100 100 Oximetry 08/10/17 08/10/17 08/10/17 05:41 05:51 06:00 Temperature Pulse Rate 96 H 97 H 98 H Pulse Rate [ From Monitor] Respiratory 22 22 22 Rate Blood Pressure 108/63 112/61 110/58 O2 Sat by Pulse 99 99 100 Oximetry 08/10/17 08/10/17 08/10/17 06:11 06:21 06:30 Temperature Pulse Rate 98 H 99 H 94 H Pulse Rate [ From Monitor] Respiratory 21 22 24 Rate Blood Pressure 110/58 100/53 101/52 O2 Sat by Pulse 99 100 100 Oximetry 08/10/17 08/10/17 08/10/17 06:41 06:50 07:00 Temperature Pulse Rate 100 H 96 H 94 H Pulse Rate [ From Monitor] Respiratory 20 21 21 Rate Blood Pressure 100/53 97/65 103/52 O2 Sat by Pulse 100 100 100 Oximetry 08/10/17 08/10/17 08/10/17 07:10 07:21 07:30 Temperature Pulse Rate 97 H 95 H 95 H Pulse Rate [ From Monitor] Respiratory 21 22 21 Rate Blood Pressure 103/52 99/45 95/49 O2 Sat by Pulse 100 100 100 Oximetry 08/10/17 08/10/17 08/10/17 07:40 07:51 08:00 Temperature 98.3 F Pulse Rate 95 H 96 H 97 H Pulse Rate [ 97 H From Monitor] Respiratory 20 21 20 Rate Blood Pressure 99/45 100/48 94/39 O2 Sat by Pulse 100 100 100 Oximetry 08/10/17 08/10/17 08/10/17 08:11 08:21 08:30 Temperature Pulse Rate 95 H 95 H 97 H Pulse Rate [ From Monitor] Respiratory 20 20 18 Rate Blood Pressure 100/48 96/44 91/43 O2 Sat by Pulse 100 100 100 Oximetry General appearance: Present: no acute distress - EENT Eyes: PERRL, EOM intact ENT: hearing intact, clear oral mucosa - Neck Neck: supple - Respiratory Respiratory effort: normal Respiratory: bilateral: CTA - Labs CBC & Chem 7: 08/10/17 04:45 08/10/17 04:45 Labs: Abnormal lab results 08/09/17 08/09/17 08/10/17 Range/Units 11:19 13:25 04:45 WBC 15.7 H 15.5 H (4.5-11.0) K/mm3 RBC 2.93 L 2.97 L (3.65-5.03) M/mm3 Hgb 8.7 L 8.9 L (10.1-14.3) gm/dl Hct 26.8 L 27.0 L (30.3-42.9) % RDW 19.2 H 19.2 H (13.2-15.2) % Seg Neuts % (Manual) 73.0 H (40.0-70.0) % Lymphocytes % (Manual) 7.0 L (13.4-35.0) % Monocytes % (Manual) 14.0 H (0.0-7.3) % Seg Neutrophils # Man 11.3 H (1.8-7.7) K/mm3 Lymphocytes # (Manual) 1.1 L (1.2-5.4) K/mm3 Monocytes # (Manual) 2.2 H (0.0-0.8) K/mm3 Basophils # (Manual) 0.2 H (0.0-0.1) K/mm3 Potassium (3.6-5.0) mmol/L Chloride (98-107) mmol/L Carbon Dioxide (22-30) mmol/L BUN (7-17) mg/dL Creatinine (0.7-1.2) mg/dL Calcium (8.4-10.2) mg/dL Alkaline Phosphatase (35-129) units/L Troponin T 0.132 H* (0.00-0.029) ng/mL Total Protein (6.3-8.2) g/dL Albumin (3.9-5) g/dL 08/10/17 Range/Units 04:45 WBC (4.5-11.0) K/mm3 RBC (3.65-5.03) M/mm3 Hgb (10.1-14.3) gm/dl Hct (30.3-42.9) % RDW (13.2-15.2) % Seg Neuts % (Manual) (40.0-70.0) % Lymphocytes % (Manual) (13.4-35.0) % Monocytes % (Manual) (0.0-7.3) % Seg Neutrophils # Man (1.8-7.7) K/mm3 Lymphocytes # (Manual) (1.2-5.4) K/mm3 Monocytes # (Manual) (0.0-0.8) K/mm3 Basophils # (Manual) (0.0-0.1) K/mm3 Potassium 3.3 L (3.6-5.0) mmol/L Chloride 97.3 L (98-107) mmol/L Carbon Dioxide 21 L (22-30) mmol/L BUN 23 H (7-17) mg/dL Creatinine 6.5 H (0.7-1.2) mg/dL Calcium 7.3 L (8.4-10.2) mg/dL Alkaline Phosphatase 138 H (35-129) units/L Troponin T (0.00-0.029) ng/mL Total Protein 4.8 L (6.3-8.2) g/dL Albumin 1.4 L (3.9-5) g/dL
[2017-08-10] MEDS: MORPHINE IV PRN ×2 (10:55→15:59)
--- NOTE | 2017-08-10 12:07 | Consultation ---
History of Present Illness - Reason for Consult Consult date: 08/10/17 end stage renal disease - History of Present Illness 62yr F adm c/o Generalized weakness, lightheadedness, Abd pain & Constipation ( last BM ~ 1wk ago), initial N/V but not anymore. ESRD on Dialysis x 2yrs, initial 6mths on HD then PD, currently on Cycler at home. Tilt Tray Driver is Dr. Perea at [facility] with privileges at [facility] Past History Past Medical History: arthritis, ESRD, heart failure, hypertension, other ( chronic Pain, Obesity) Past Surgical History: cholecystectomy, total knee replacement, Other (Neck surgery) Social history: , lives with family. denies: smoking, alcohol abuse, prescription drug abuse, IV drug use Family history: CAD, hypertension Medications and Allergies Allergies Allergy/AdvReac Type Severity Reaction Status Date / Time Penicillins Allergy Shortness Verified 09/07/13 07:21 of Breath Home Medications Medication Instructions Recorded Confirmed Last Taken Type Cyclobenzaprine [Flexeril 10 MG 10 mg PO BID 09/07/13 08/09/17 07/29/17 History TAB] HYDROcodone/ACETAMINOPHEN 1 tab PO BID PRN 09/07/13 08/09/17 07/30/17 History [Hydrocodone-Acetaminophnen(Nf) 10/500 mg Tab] buPROPion [Wellbutrin] 150 mg PO DAILY 07/06/14 08/09/17 1 Week Ago History Calcitriol [Rocaltrol] 1 mcg PO QDAY 08/09/17 08/09/17 07/30/17 History FLUoxetine [PROzac] 40 mg PO QDAY 08/09/17 08/09/17 1 Week Ago History Pantoprazole [Protonix] 40 mg PO QDAY 08/09/17 08/09/17 07/30/17 History Potassium Chloride 40 meq PO BID 08/09/17 08/09/17 07/30/17 History Kori-Milka Rx Tablet 1 mg PO 4XD 08/09/17 08/09/17 08/09/17 15:58 History Active Meds: Active Medications Al Hydrox/Mg Hydrox/Simethicone (Alum-Mag Hydrox-Simeth 088-699-92rb/5ml) 15 ml PO Q4H PRN PRN Reason: Indigestion Last Admin: 08/09/17 23:37 Dose: 15 ml Hydrophilic Ointment (Vaseline Lip Therapy) 1 applic TP DIRECT PRN PRN Reason: DRY LIPS Norepinephrine (Levophed Drip 4 Mg/Ns 250 Ml) 4 mg in 250 mls @ 7.5 mls/hr IV TITR GLORIA; 2 MCG/MIN PRN Reason: Protocol Last Admin: 08/09/17 14:53 Dose: 6.66 mcg/min, 24.975 mls/hr Levofloxacin/Dextrose (Levaquin 500mg/100ml) 500 mg in 100 mls @ 100 mls/hr IV Q48H GLORIA Midodrine (Proamatine) 5 mg PO TID GLORIA Last Admin: 08/10/17 08:28 Dose: 5 mg Morphine Sulfate (Morphine) 1 mg IV Q4H PRN PRN Reason: Pain, Moderate (4-6) Last Admin: 08/10/17 10:55 Dose: 1 mg Ondansetron HCl (Zofran) 4 mg IV Q6H PRN PRN Reason: Nausea And Vomiting Last Admin: 08/09/17 17:04 Dose: 4 mg Zolpidem Tartrate (Ambien) 5 mg PO QHS PRN PRN Reason: Sleep Last Admin: 08/09/17 23:37 Dose: 5 mg Review of Systems Ears, nose, mouth and throat: other (Nil of note) Cardiovascular: lightheadedness, no chest pain, no orthopnea, no palpitations, no edema, no syncope, no shortness of breath, no dyspnea on exertion Respiratory: no cough, no shortness of breath Gastrointestinal: abdominal pain, constipation, no nausea, no vomiting, no diarrhea Neurological: weakness, no vertigo, no headaches Exam - Vital Signs Vital signs: Vital Signs Pulse Resp BP Pulse Ox 80 18 66/41 98 08/08/17 13:00 08/08/17 13:00 08/08/17 13:00 08/08/17 13:00 - General Appearance General appearance: fatigue, frail EENT: PERRL Neck: Present: neck supple Respiratory: Clear to Ascultation Heart: regular, S1S2 Gastrointestinal: Present: other (Soft, Mild diffuse tenderness, No rebound. PD cath LUQ with clean exit site) Results - Lab Results 08/10/17 04:45 08/10/17 04:45 Most recent lab results Calcium 7.3 mg/dL (8.4-10.2) L 08/10/17 04:45 Phosphorus 3.60 mg/dL (2.5-4.5) 08/08/17 14:11 Magnesium 1.20 mg/dL (1.7-2.3) L 08/08/17 14:11 Assessment and Plan Abd Pain / Constipation - Doubt Acute abd. Reviewed CT abd/Pelvis, Give Laxatives then stool softener ESRD on PD - Doubt PD Peritonitis but would check PD fluid for Cell Count & diff. Resume CAPD with 1.5% Dialysate Hypotension - ?Dehydration with Volume depletion. Give cautious IVF, Pressor as necessary Electrolyte Imbalance - Replenish K, f/u Mg, Phos Leukocytosis - F/u cxs & continue abx Thanks very much, will f/u with you
[2017-08-10] MEDS ORDERED: NACL 0.9% 1000 ML 1,000 ML IV SCH (13:00)
[2017-08-10] MEDS: CEPHULAC PO SCH ×2 (13:09→18:55)
--- NOTE | 2017-08-10 14:58 | Gastroenterology Progress Note ---
Assessment and Plan GI: pt for peg when stable and medically cleared - no changes - will follow Subjective Date of service: 08/10/17 Interval history: - pt w/o GI problems overnight Objective - Constitutional Vitals: Temp Pulse Resp BP Pulse Ox 98.9 F 97 H 23 109/59 100 08/10/17 12:00 08/10/17 14:11 08/10/17 14:11 08/10/17 14:11 08/10/17 14:11 General appearance: no acute distress - Respiratory Respiratory: bilateral: CTA - Cardiovascular Rhythm: regular Heart Sounds: Present: S1 & S2 - Gastrointestinal General gastrointestinal: Present: soft, tender, non-distended - Labs CBC & Chem 7: 08/10/17 04:45 08/10/17 13:20 Labs: Laboratory Results - last 24 hr 08/10/17 08/10/17 08/10/17 04:45 04:45 04:45 WBC 15.5 H RBC 2.97 L Hgb 8.9 L Hct 27.0 L MCV 91 MCH 30 MCHC 33 RDW 19.2 H Plt Count 395 [place] % (Auto) Cd Reactor Operator Head Add Manual Diff Complete Total Counted 100 Seg Neuts % (Manual) 73.0 H Band Neutrophils % 3.0 Lymphocytes % (Manual) 7.0 L Reactive Lymphs % (Man) 0 Monocytes % (Manual) 14.0 H Eosinophils % (Manual) 2.0 Basophils % (Manual) 1.0 Metamyelocytes % 0 Myelocytes % 0 Promyelocytes % 0 Blast Cells % 0 Nucleated RBC % Not Reportable Seg Neutrophils # Man 11.3 H Band Neutrophils # 0.5 Lymphocytes # (Manual) 1.1 L Abs React Lymphs (Man) 0.0 Monocytes # (Manual) 2.2 H Eosinophils # (Manual) 0.3 Basophils # (Manual) 0.2 H Metamyelocytes # 0.0 Myelocytes # 0.0 Promyelocytes # 0.0 Blast Cells # 0.0 WBC Morphology Not Reportable Hypersegmented Neuts Not Reportable Hyposegmented Neuts Not Reportable Hypogranular Neuts Not Reportable Smudge Cells Not Reportable Toxic Granulation Not Reportable Toxic Vacuolation Rare Dohle Bodies Not Reportable Pelger-Huet Anomaly Not Reportable Ariel Rods Not Reportable Platelet Estimate Appears normal Clumped Platelets Not Reportable Plt Clumps, EDTA Not Reportable Large Platelets Not Reportable Giant Platelets Not Reportable Platelet Satelliting Not Reportable Plt Morphology Comment Not Reportable RBC Morphology Not Reportable Dimorphic RBCs Not Reportable Polychromasia Not Reportable Hypochromasia 1+ Poikilocytosis Not Reportable Anisocytosis 1+ Microcytosis Not Reportable Macrocytosis Not Reportable Spherocytes Not Reportable Pappenheimer Bodies Not Reportable Sickle Cells Not Reportable Target Cells Not Reportable Tear Drop Cells Not Reportable Ovalocytes Not Reportable Helmet Cells Not Reportable Vera-Barlow Bodies Not Reportable [place] Rings Not Reportable [place] Cells Not Reportable Bite Cells Not Reportable Crenated Cell Not Reportable Elliptocytes Not Reportable Acanthocytes (Spur) Not Reportable Rouleaux Not Reportable Hemoglobin C Crystals Not Reportable Schistocytes Not Reportable Malaria parasites Not Reportable Jovanni Bodies Not Reportable Hem Pathologist Commnt No Sodium 137 Potassium 3.3 L Chloride 97.3 L Carbon Dioxide 21 L Anion Gap 22 BUN 23 H Creatinine 6.5 H Estimated GFR 8 BUN/Creatinine Ratio 3.53 Glucose 73 Calcium 7.3 L Total Bilirubin 0.50 AST 10 ALT 11 Alkaline Phosphatase 138 H Total Protein 4.8 L Albumin 1.4 L Albumin/Globulin Ratio 0.4 Random Vancomycin 20.5 08/10/17 13:20 WBC RBC Hgb Hct MCV MCH MCHC RDW Plt Count [place] % (Auto) Add Manual Diff Total Counted Seg Neuts % (Manual) Band Neutrophils % Lymphocytes % (Manual) Reactive Lymphs % (Man) Monocytes % (Manual) Eosinophils % (Manual) Basophils % (Manual) Metamyelocytes % Myelocytes % Promyelocytes % Blast Cells % Nucleated RBC % Seg Neutrophils # Man Band Neutrophils # Lymphocytes # (Manual) Abs React Lymphs (Man) Monocytes # (Manual) Eosinophils # (Manual) Basophils # (Manual) Metamyelocytes # Myelocytes # Promyelocytes # Blast Cells # WBC Morphology Hypersegmented Neuts Hyposegmented Neuts Hypogranular Neuts Smudge Cells Toxic Granulation Toxic Vacuolation Dohle Bodies Pelger-Huet Anomaly Ariel Rods Platelet Estimate Clumped Platelets Plt Clumps, EDTA Large Platelets Giant Platelets Platelet Satelliting Plt Morphology Comment RBC Morphology Dimorphic RBCs Polychromasia Hypochromasia Poikilocytosis Anisocytosis Microcytosis Macrocytosis Spherocytes Pappenheimer Bodies Sickle Cells Target Cells Tear Drop Cells Ovalocytes Helmet Cells Vera-Barlow Bodies [place] Rings Yusuf Cells Bite Cells Crenated Cell Elliptocytes Acanthocytes (Spur) Rouleaux Hemoglobin C Crystals Schistocytes Malaria parasites Jovanni Bodies Hem Pathologist Commnt Sodium Potassium 3.9 Chloride Carbon Dioxide Anion Gap BUN Creatinine Estimated GFR BUN/Creatinine Ratio Glucose Calcium Total Bilirubin AST ALT Alkaline Phosphatase Total Protein Albumin Albumin/Globulin Ratio Random Vancomycin
--- NOTE | 2017-08-10 15:54 | Progress Note ---
Assessment and Plan Assessment and plan: chronic hypeotension - Patient is on IV fluids, IV antibiotics - Pressors were stopped, continue to drink - Cardiology consulted and echo is pending - Patient has elevated troponin level End-stage renal disease on PD - Nephrology consult appreciated - Current to continue PD History of cervical surgery and postoperative wheelchair bound since then UTI on the setting of Indwelling catheter - Urology was consulted and put the ivan cathter Poor oral intake - GI consulted and will put PEG DVT prophylaxis Disposition -Transferred her to the floor. History Interval history: Patient was seen and evaluated this morning, patient is wheelchair bound, hypotensive but it is her baseline. I have discussed with the management plan with the patient, her and daughter. I was called by [place] physician agreed with the management plan. Hospitalist Physical - Physical exam Narrative exam: Not in cardiopulmonary distress. The patient is obese. Vital signs as documented. Head exam is unremarkable. No scleral icterus . Neck is without jugular venous distension, thyromegaly, or carotid bruits. Lungs are clear to auscultation. Cardiac exam reveals regular rate and Rhythm. First and second heart sounds normal. No murmurs, rubs or gallops. Abdominal exam reveals PD catheter in Place. Extremities ulcer on the right leg. 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 Paraparesis. - Constitutional Vitals: Temp Pulse Resp BP Pulse Ox 98.9 F 97 H 23 109/59 100 08/10/17 12:00 08/10/17 14:11 08/10/17 14:11 08/10/17 14:11 08/10/17 14:11 General appearance: Present: no acute distress Results - Labs CBC & Chem 7: 08/10/17 04:45 08/10/17 13:20 Labs: Laboratory Last Values WBC 15.5 K/mm3 (4.5-11.0) H 08/10/17 04:45 RBC 2.97 M/mm3 (3.65-5.03) L 08/10/17 04:45 Hgb 8.9 gm/dl (10.1-14.3) L 08/10/17 04:45 Hct 27.0 % (30.3-42.9) L 08/10/17 04:45 MCV 91 fl (79-97) 08/10/17 04:45 MCH 30 pg (28-32) 08/10/17 04:45 MCHC 33 % (30-34) 08/10/17 04:45 RDW 19.2 % (13.2-15.2) H 08/10/17 04:45 Plt Count 395 K/mm3 (140-440) 08/10/17 04:45 Lymph % (Auto) 5.6 % (13.4-35.0) L 08/08/17 14:59 [place] % (Auto) Recruiter Manager 08/10/17 04:45 Eos % (Auto) 1.1 % (0.0-4.3) 08/08/17 14:59 Baso % (Auto) 0.2 % (0.0-1.8) 08/08/17 14:59 Lymph # 1.0 K/mm3 (1.2-5.4) L 08/08/17 14:59 [place] # 2.3 K/mm3 (0.0-0.8) H 08/08/17 14:59 Eos # 0.2 K/mm3 (0.0-0.4) 08/08/17 14:59 Baso # 0.0 K/mm3 (0.0-0.1) 08/08/17 14:59 Add Manual Diff Complete 08/10/17 04:45 Total Counted 100 08/10/17 04:45 Seg Neutrophils % 79.7 % (40.0-70.0) H 08/08/17 14:59 Seg Neuts % (Manual) 73.0 % (40.0-70.0) H 08/10/17 04:45 Band Neutrophils % 3.0 % 08/10/17 04:45 Lymphocytes % (Manual) 7.0 % (13.4-35.0) L 08/10/17 04:45 Reactive Lymphs % (Man) 0 % 08/10/17 04:45 Monocytes % (Manual) 14.0 % (0.0-7.3) H 08/10/17 04:45 Eosinophils % (Manual) 2.0 % (0.0-4.3) 08/10/17 04:45 Basophils % (Manual) 1.0 % (0.0-1.8) 08/10/17 04:45 Metamyelocytes % 0 % 08/10/17 04:45 Myelocytes % 0 % 08/10/17 04:45 Promyelocytes % 0 % 08/10/17 04:45 Blast Cells % 0 % 08/10/17 04:45 Nucleated RBC % Not Reportable 08/10/17 04:45 Seg Neutrophils # 13.5 K/mm3 (1.8-7.7) H 08/08/17 14:59 Seg Neutrophils # Man 11.3 K/mm3 (1.8-7.7) H 08/10/17 04:45 Band Neutrophils # 0.5 K/mm3 08/10/17 04:45 Lymphocytes # (Manual) 1.1 K/mm3 (1.2-5.4) L 08/10/17 04:45 Abs React Lymphs (Man) 0.0 K/mm3 08/10/17 04:45 Monocytes # (Manual) 2.2 K/mm3 (0.0-0.8) H 08/10/17 04:45 Eosinophils # (Manual) 0.3 K/mm3 (0.0-0.4) 08/10/17 04:45 Basophils # (Manual) 0.2 K/mm3 (0.0-0.1) H 08/10/17 04:45 Metamyelocytes # 0.0 K/mm3 08/10/17 04:45 Myelocytes # 0.0 K/mm3 08/10/17 04:45 Promyelocytes # 0.0 K/mm3 08/10/17 04:45 Blast Cells # 0.0 K/mm3 08/10/17 04:45 WBC Morphology Not Reportable 08/10/17 04:45 Hypersegmented Neuts Not Reportable 08/10/17 04:45 Hyposegmented Neuts Not Reportable 08/10/17 04:45 Hypogranular Neuts Not Reportable 08/10/17 04:45 Smudge Cells Not Reportable 08/10/17 04:45 Toxic Granulation Not Reportable 08/10/17 04:45 Toxic Vacuolation Rare 08/10/17 04:45 Dohle Bodies Not Reportable 08/10/17 04:45 Pelger-Huet Anomaly Not Reportable 08/10/17 04:45 Ariel Rods Not Reportable 08/10/17 04:45 Platelet Estimate Appears normal 08/10/17 04:45 Clumped Platelets Not Reportable 08/10/17 04:45 Plt Clumps, EDTA Not Reportable 08/10/17 04:45 Large Platelets Not Reportable 08/10/17 04:45 Giant Platelets Not Reportable 08/10/17 04:45 Platelet Satelliting Not Reportable 08/10/17 04:45 Plt Morphology Comment Not Reportable 08/10/17 04:45 RBC Morphology Not Reportable 08/10/17 04:45 Dimorphic RBCs Not Reportable 08/10/17 04:45 Polychromasia Not Reportable 08/10/17 04:45 Hypochromasia 1+ 08/10/17 04:45 Poikilocytosis Not Reportable 08/10/17 04:45 Anisocytosis 1+ 08/10/17 04:45 Microcytosis Not Reportable 08/10/17 04:45 Macrocytosis Not Reportable 08/10/17 04:45 Spherocytes Not Reportable 08/10/17 04:45 Pappenheimer Bodies Not Reportable 08/10/17 04:45 Sickle Cells Not Reportable 08/10/17 04:45 Target Cells Not Reportable 08/10/17 04:45 Tear Drop Cells Not Reportable 08/10/17 04:45 Ovalocytes Not Reportable 08/10/17 04:45 Helmet Cells Not Reportable 08/10/17 04:45 [place] Bodies Not Reportable 08/10/17 04:45 [place] Rings Not Reportable 08/10/17 04:45 Yusuf Cells Not Reportable 08/10/17 04:45 Bite Cells Not Reportable 08/10/17 04:45 Crenated Cell Not Reportable 08/10/17 04:45 Elliptocytes Not Reportable 08/10/17 04:45 Acanthocytes (Spur) Not Reportable 08/10/17 04:45 Rouleaux Not Reportable 08/10/17 04:45 Hemoglobin C Crystals Not Reportable 08/10/17 04:45 Schistocytes Not Reportable 08/10/17 04:45 Malaria parasites Not Reportable 08/10/17 04:45 Jovanni Bodies Not Reportable 08/10/17 04:45 Hem Pathologist Commnt No 08/10/17 04:45 PT 14.7 Sec. (12.2-14.9) 08/08/17 14:59 INR 1.09 (0.87-1.13) 08/08/17 14:59 APTT 31.0 Sec. (24.2-36.6) 08/08/17 14:09 POC ABG pH 7.490 (7.35-7.45) H 08/08/17 21:31 POC ABG pCO2 35.4 (35-45) 08/08/17 21:31 POC ABG pO2 122 (80-105) H 08/08/17 21:31 POC ABG HCO3 26.9 08/08/17 21:31 POC ABG Total CO2 28 08/08/17 21:31 POC ABG O2 Sat 99 08/08/17 21:31 POC ABG Base Excess 4 08/08/17 21:31 VBG pH 7.462 (7.320-7.420) H 08/08/17 14:52 FiO2 28 % 08/08/17 21:31 Sodium 137 mmol/L (137-145) 08/10/17 04:45 Potassium 3.9 mmol/L (3.6-5.0) 08/10/17 13:20 Chloride 97.3 mmol/L (98-107) L 08/10/17 04:45 Carbon Dioxide 21 mmol/L (22-30) L 08/10/17 04:45 Anion Gap 22 mmol/L 08/10/17 04:45 BUN 23 mg/dL (7-17) H 08/10/17 04:45 Creatinine 6.5 mg/dL (0.7-1.2) H 08/10/17 04:45 Estimated GFR 8 ml/min 08/10/17 04:45 BUN/Creatinine Ratio 3.53 % 08/10/17 04:45 Glucose 73 mg/dL (65-100) 08/10/17 04:45 Lactic Acid 0.70 mmol/L (0.7-2.0) 08/09/17 05:00 Calcium 7.3 mg/dL (8.4-10.2) L 08/10/17 04:45 Phosphorus 3.60 mg/dL (2.5-4.5) 08/08/17 14:11 Magnesium 1.20 mg/dL (1.7-2.3) L 08/08/17 14:11 Total Bilirubin 0.50 mg/dL (0.1-1.2) 08/10/17 04:45 Direct Bilirubin 0.2 mg/dL (0-0.2) 08/08/17 14:11 Indirect Bilirubin 0.3 mg/dL 08/08/17 14:11 AST 10 units/L (5-40) 08/10/17 04:45 ALT 11 units/L (7-56) 08/10/17 04:45 Alkaline Phosphatase 138 units/L (35-129) H 08/10/17 04:45 Ammonia 25.0 umol/L (25-60) 08/08/17 14:52 Troponin T 0.132 ng/mL (0.00-0.029) H* 08/09/17 13:25 NT-Pro-B Natriuret Pep 6156 pg/mL (0-900) H 08/08/17 14:11 Total Protein 4.8 g/dL (6.3-8.2) L 08/10/17 04:45 Albumin 1.4 g/dL (3.9-5) L 08/10/17 04:45 Albumin/Globulin Ratio 0.4 % 08/10/17 04:45 Triglycerides 62 mg/dL (2-149) 08/08/17 21:23 Cholesterol 91 mg/dL (50-199) 08/08/17 21:23 LDL Cholesterol Direct 53 mg/dL (50-130) 08/08/17 21:23 HDL Cholesterol 26 mg/dL (40-59) L 08/08/17 21:23 Cholesterol/HDL Ratio 3.50 % 08/08/17 21:23 TSH 6.580 mlU/mL (0.270-4.200) H 08/08/17 14:22 Free T4 1.46 ng/dL (0.76-1.46) 08/08/17 14:22 Urine Color Yellow (Yellow) 08/08/17 20:15 Urine Turbidity Turbid (Clear) 08/08/17 20:15 Urine pH 8.0 (5.0-7.0) H 08/08/17 20:15 Ur Specific [place] 1.015 (1.003-1.030) 08/08/17 20:15 Urine Protein 100 mg/dl mg/dL (Negative) 08/08/17 20:15 Urine Glucose (UA) Neg mg/dL (Negative) 08/08/17 20:15 Urine Ketones Neg mg/dL (Negative) 08/08/17 20:15 Urine Blood Mod (Negative) 08/08/17 20:15 Urine Nitrite Neg (Negative) 08/08/17 20:15 Urine Bilirubin Neg (Negative) 08/08/17 20:15 Urine Urobilinogen < 2.0 mg/dL (<2.0) 08/08/17 20:15 Ur Leukocyte Esterase Lg (Negative) 08/08/17 20:15 Urine WBC (Auto) 24.0 /HPF (0.0-6.0) H 08/08/17 20:15 Urine RBC (Auto) 3.0 /HPF (0.0-6.0) 08/08/17 20:15 U Epithel Cells (Auto) 3.0 /HPF (0-13.0) 08/08/17 20:15 Urine Bacteria (Auto) 4+ /HPF (Negative) 08/08/17 20:15 Urine Mucus 3+ /HPF 08/08/17 20:15 Fluid Type Peritoneal 08/08/17 18:18 Fluid Color Straw 08/08/17 18:18 Fluid Appearance Clear 08/08/17 18:18 Fluid pH 7.74 08/08/17 18:18 Fluid WBC 4 /mm3 08/08/17 18:18 Fluid RBC 1 /mm3 08/08/17 18:18 Fluid Seg Neutrophils 12 % 08/08/17 18:18 Fluid Lymphocytes 0 % 08/08/17 18:18 Fluid Reactive Lymphs 0 % 08/08/17 18:18 Fluid Monocytes 1 % 08/08/17 18:18 Fluid Eosinophils 0 % 08/08/17 18:18 Fluid Basophils 0 % 08/08/17 18:18 Random Vancomycin 20.5 ug/mL (0-40.0) 08/10/17 04:45 Blood Type O POSITIVE 08/08/17 14:52 Antibody Screen Negative 08/08/17 14:52
[2017-08-10] MEDS: ZOFRAN IV PRN (18:41)
--- NOTE | 2017-08-10 18:46 | Consultation ---
REFERRING PHYSICIAN: Lizandro Marie MD INDICATION: 1. Weight loss. 2. PEG tube placement. HISTORY OF PRESENT ILLNESS: The patient is a 62-year-old black female with history of hypertension, end-stage renal disease, on peritoneal dialysis; ischemic cardiomyopathy, currently on milrinone and chronic pain, presented to the Emergency Room with weakness. The patient had been noncompliant with milrinone and had presented with lightheadedness and weakness and found to be hypotensive. The patient subsequently admitted to the intensive care unit for further evaluation. The patient's family, especially her daughter reports the patient has had poor p.o. intake and has not been eating and progressively losing weight. She reports that she would like to have her mother have a feeding tube. She denies any nausea or vomiting. Denies any diarrhea, constipation, or rectal bleeding. Denies any other specific complaints. PAST MEDICAL HISTORY: 1. Arthritis. 2. End-stage renal disease, on peritoneal dialysis. 3. Heart failure with ischemic cardiomyopathy. 4. Hypertension. 5. Chronic back pain. PAST SURGICAL HISTORY: 1. Status post cholecystectomy. 2. Status post knee replacement. MEDICATIONS: See chart. SOCIAL HISTORY: Lives with family. FAMILY HISTORY: Negative for colon cancer. ALLERGIES: PENICILLIN. REVIEW OF SYSTEMS: GENERAL: Reports mild weakness. HEENT: No visual complaints or tinnitus. PULMONARY: No shortness of breath. No cough. No chest pain. GASTROINTESTINAL: Reports no specific complaints. All points of 13-point review of systems otherwise negative. PHYSICAL EXAMINATION: VITAL SIGNS: Temperature of 98.0, pulse 90, respirations 20, blood pressure 120/70. GENERAL: Fairly nourished female, in no acute distress. HEENT: Pupils equal, round, and reactive. PULMONARY: Clear to auscultation bilaterally. CARDIOVASCULAR: Regular rate and rhythm. ABDOMEN: Soft. SKIN: No obvious rashes. LABORATORY DATA: Pertinent for white count of 15.7, hemoglobin and hematocrit 8.7 and 26.8, platelet count of 424. Chem-7, sodium of 134, potassium 3.2, chloride 94, CO2 of 24, BUN and creatinine increased. LFTs within normal limits. ASSESSMENT AND PLAN: A 62-year-old female with multiple medical problems, especially ischemic cardiomyopathy on milrinone, which she has been noncompliant with and now progressive weakness and not eating. GI is consulted for possible PEG tube placement. The patient has currently been stabilized and has been hypotensive during the hospital course. Management is noted below. PLAN: 1. We will review office chart. 2. Follow labs. 3. Hemodynamic management per primary team. 4. We will consider PEG tube based on progress and if cleared by Cardiology. 5. We will follow. JOB# [id number] CAB/ISMAEL RACHELD
[2017-08-10] MEDS: DIANEAL PD-2 W/1.5% DEXTROSE IP SCH (18:47)
[2017-08-10] MEDS ORDERED: MORPHINE IV ONE (19:00)
[2017-08-10] MEDS: LEVAQUIN 500MG/100ML 500 MG/100 ML BAG IV SCH (22:45)
[2017-08-11] MEDS: DIANEAL PD-2 W/1.5% DEXTROSE IP SCH ×4 (01:50→21:32)
[2017-08-11] MEDS: CEPHULAC PO SCH ×5 (02:44→18:09)
[2017-08-11 05:18] LABS: Basophils % (Auto) 0.4 % (0.0-1.8); Eosinophils % (Auto) 0.5 % (0.0-4.3); Hematocrit 28.2 % (30.3-42.9); Hemoglobin 9.5 gm/dl (10.1-14.3); Mean Corpuscular HGB Conc 34 % (30-34); Mean Corpuscular Hemoglobin 31 pg (28-32); Mean Corpuscular Volume 91 fl (79-97); Platelet Count 463 K/mm3 (140-440); Red Cell Distribution Width 19.2 % (13.2-15.2); White Blood Count 19.3 K/mm3 (4.5-11.0)
[2017-08-11 05:33] LABS: BUN/Creatinine Ratio 4.06; Calcium 8.2 mg/dL (8.4-10.2); Chloride 96.3 mmol/L (98-107); Magnesium 1.3 mg/dL (1.7-2.3); Potassium 3.9 mmol/L (3.6-5.0)
[2017-08-11] MEDS: PROAMATINE PO SCH ×3 (08:27→21:24)
[2017-08-11] MEDS: ZOFRAN IV PRN ×2 (08:27→18:04)
[2017-08-11] MEDS ORDERED: MAGNESIUM SULFATE 3 GM in NACL 0.9% 100 ML IV ONE (09:11)
--- NOTE | 2017-08-11 09:13 | Event Note ---
Date: 08/11/17 no events reported. no acute distress transferred from icu to tele bp improved tele: nsr chest clear cor rrr abd soft ext w/o edema imp: esrd. hypotension. elev trop but no sig delta. ?autonomic dysfx leading to hypotension continue current mgt. no additional card rec at this time. per neprhol
--- NOTE | 2017-08-11 11:20 | Progress Note ---
Assessment and Plan Abd Pain / Constipation - Still no BM. Increase Laxative, give appetite stimulant & Dietary supplement ESRD on PD - No problem with CAPD exchanges, continue as present Vitals - Improved BP, continue f/u Lytes - Stable, f/u labs Leukocytosis - F/u cxs & continue abx Subjective Date of service: 08/11/17 Objective - Vital Signs Vital signs: Vital Signs - 12hr 08/11/17 08/11/17 06:18 09:24 Temperature 98.2 F 98.7 F Pulse Rate 108 H 105 H Respiratory 12 20 Rate Blood Pressure 104/53 106/50 O2 Sat by Pulse 69 L 99 Oximetry - General Appearance General appearance: other ([place] & more responsive) Neck: no JVD Respiratory: Present: Clear to Ascultation Cardiology: S1S2 Gastrointestinal: other (Soft) - Lab 08/11/17 04:00 08/11/17 04:00 Most recent lab results Calcium 8.2 mg/dL (8.4-10.2) L 08/11/17 04:00 Phosphorus 4.00 mg/dL (2.5-4.5) 08/11/17 04:00 Magnesium 1.30 mg/dL (1.7-2.3) L 08/11/17 04:00
--- NOTE | 2017-08-11 11:32 | Gastroenterology Progress Note ---
Assessment and Plan GI: stable w/o GI complaints - discussed w/ pt and family and would like o proceed with PEG placement - will schedule EGD/PEG for am Subjective Date of service: 08/11/17 Interval history: - no GI complaints overnight Objective - Constitutional Vitals: Temp Pulse Resp BP Pulse Ox 98.7 F 105 H 20 106/50 99 08/11/17 09:24 08/11/17 09:24 08/11/17 09:24 08/11/17 09:24 08/11/17 09:24 General appearance: no acute distress - Respiratory Respiratory: bilateral: CTA - Cardiovascular Rhythm: regular Heart Sounds: Present: S1 & S2 - Gastrointestinal General gastrointestinal: Present: soft, non-tender, non-distended - Labs CBC & Chem 7: 08/11/17 04:00 08/11/17 04:00 Labs: Laboratory Results - last 24 hr 08/10/17 08/11/17 08/11/17 13:20 04:00 04:00 WBC 19.3 H RBC 3.10 L Hgb 9.5 L Hct 28.2 L MCV 91 MCH 31 MCHC 34 RDW 19.2 H Plt Count 463 H Lymph % (Auto) 7.5 L [place] % (Auto) 14.6 H Eos % (Auto) 0.5 Baso % (Auto) 0.4 Lymph # 1.5 [place] # 2.8 H Eos # 0.1 Baso # 0.1 Seg Neutrophils % 77.0 H Seg Neutrophils # 14.8 H Sodium 136 L Potassium 3.9 3.9 Chloride 96.3 L Carbon Dioxide 25 Anion Gap 19 BUN 26 H Creatinine 6.4 H Estimated GFR 8 BUN/Creatinine Ratio 4.06 Glucose 135 H Calcium 8.2 L Phosphorus 4.00 Magnesium 1.30 L
--- NOTE | 2017-08-11 13:24 | Progress Note ---
Assessment and Plan 62 y/o female with hypotension of unknown etiology. 1. Will sign off. Call if questions or needed Subjective Date of service: 08/11/17 Interval history: Successful transfer out of ICU on yesterday. BP stable Objective - Constitutional Vitals: Vital Signs - 12hr 08/11/17 08/11/17 06:18 09:24 Temperature 98.2 F 98.7 F Pulse Rate 108 H 105 H Respiratory 12 20 Rate Blood Pressure 104/53 106/50 O2 Sat by Pulse 69 L 99 Oximetry General appearance: Present: no acute distress - EENT Eyes: PERRL, EOM intact ENT: hearing intact - Neck Neck: supple, normal ROM - Respiratory Respiratory effort: normal Respiratory: bilateral: CTA - Labs CBC & Chem 7: 08/11/17 04:00 08/11/17 04:00 Labs: Abnormal lab results 08/11/17 08/11/17 Range/Units 04:00 04:00 WBC 19.3 H (4.5-11.0) K/mm3 RBC 3.10 L (3.65-5.03) M/mm3 Hgb 9.5 L (10.1-14.3) gm/dl Hct 28.2 L (30.3-42.9) % RDW 19.2 H (13.2-15.2) % Plt Count 463 H (140-440) K/mm3 Lymph % (Auto) 7.5 L (13.4-35.0) % [place] % (Auto) 14.6 H (0.0-7.3) % [place] # 2.8 H (0.0-0.8) K/mm3 Seg Neutrophils % 77.0 H (40.0-70.0) % Seg Neutrophils # 14.8 H (1.8-7.7) K/mm3 Sodium 136 L (137-145) mmol/L Chloride 96.3 L (98-107) mmol/L BUN 26 H (7-17) mg/dL Creatinine 6.4 H (0.7-1.2) mg/dL Glucose 135 H (65-100) mg/dL Calcium 8.2 L (8.4-10.2) mg/dL Magnesium 1.30 L (1.7-2.3) mg/dL
--- NOTE | 2017-08-11 14:30 | Progress Note ---
Assessment and Plan Assessment and plan: chronic hypeotension - Patient is on IV fluids, IV antibiotics - Pressors were stopped - Cardiology consulted and echo is normal - Patient has elevated troponin level End-stage renal disease on PD - Nephrology consult appreciated - Current to continue PD History of cervical surgery and postoperative wheelchair bound since then UTI on the setting of Indwelling catheter Poor oral intake - GI consulted and will put PEG tomorrow Leukocytosis despite on antibiotics - Hematology consulted DVT prophylaxis Disposition - Continue inpatient care, possible discharge after PEG placement History Interval history: Patient was seen and evaluated this morning, patient is wheelchair bound, hypotensive but she is hypotensive at baseline. I have discussed with the management plan with the patient and daughter. I was called by [facility] physician agreed with the management plan. Hospitalist Physical - Physical exam Narrative exam: Not in cardiopulmonary distress. The patient is obese. Vital signs as documented. Head exam is unremarkable. No scleral icterus . Neck is without jugular venous distension, thyromegaly, or carotid bruits. Lungs are clear to auscultation. Cardiac exam reveals regular rate and Rhythm. First and second heart sounds normal. No murmurs, rubs or gallops. Abdominal exam reveals PD catheter in Place. Extremities ulcer on the right leg. FLIGHT PHYSICIAN: Alert and oriented 3. Paraparesis. - Constitutional Vitals: Temp Pulse Resp BP Pulse Ox 98.7 F 105 H 20 106/50 99 08/11/17 09:24 08/11/17 09:24 08/11/17 09:24 08/11/17 09:24 08/11/17 09:24 General appearance: Present: no acute distress Results - Labs CBC & Chem 7: 08/11/17 04:00 08/11/17 04:00 Labs: Laboratory Last Values WBC 19.3 K/mm3 (4.5-11.0) H 08/11/17 04:00 RBC 3.10 M/mm3 (3.65-5.03) L 08/11/17 04:00 Hgb 9.5 gm/dl (10.1-14.3) L 08/11/17 04:00 Hct 28.2 % (30.3-42.9) L 08/11/17 04:00 MCV 91 fl (79-97) 08/11/17 04:00 MCH 31 pg (28-32) 08/11/17 04:00 MCHC 34 % (30-34) 08/11/17 04:00 RDW 19.2 % (13.2-15.2) H 08/11/17 04:00 Plt Count 463 K/mm3 (140-440) H 08/11/17 04:00 Lymph % (Auto) 7.5 % (13.4-35.0) L 08/11/17 04:00 [place] % (Auto) 14.6 % (0.0-7.3) H 08/11/17 04:00 Eos % (Auto) 0.5 % (0.0-4.3) 08/11/17 04:00 Baso % (Auto) 0.4 % (0.0-1.8) 08/11/17 04:00 Lymph # 1.5 K/mm3 (1.2-5.4) 08/11/17 04:00 [place] # 2.8 K/mm3 (0.0-0.8) H 08/11/17 04:00 Eos # 0.1 K/mm3 (0.0-0.4) 08/11/17 04:00 Baso # 0.1 K/mm3 (0.0-0.1) 08/11/17 04:00 Add Manual Diff Complete 08/10/17 04:45 Total Counted 100 08/10/17 04:45 Seg Neutrophils % 77.0 % (40.0-70.0) H 08/11/17 04:00 Seg Neuts % (Manual) 73.0 % (40.0-70.0) H 08/10/17 04:45 Band Neutrophils % 3.0 % 08/10/17 04:45 Lymphocytes % (Manual) 7.0 % (13.4-35.0) L 08/10/17 04:45 Reactive Lymphs % (Man) 0 % 08/10/17 04:45 Monocytes % (Manual) 14.0 % (0.0-7.3) H 08/10/17 04:45 Eosinophils % (Manual) 2.0 % (0.0-4.3) 08/10/17 04:45 Basophils % (Manual) 1.0 % (0.0-1.8) 08/10/17 04:45 Metamyelocytes % 0 % 08/10/17 04:45 Myelocytes % 0 % 08/10/17 04:45 Promyelocytes % 0 % 08/10/17 04:45 Blast Cells % 0 % 08/10/17 04:45 Nucleated RBC % Not Reportable 08/10/17 04:45 Seg Neutrophils # 14.8 K/mm3 (1.8-7.7) H 08/11/17 04:00 Seg Neutrophils # Man 11.3 K/mm3 (1.8-7.7) H 08/10/17 04:45 Band Neutrophils # 0.5 K/mm3 08/10/17 04:45 Lymphocytes # (Manual) 1.1 K/mm3 (1.2-5.4) L 08/10/17 04:45 Abs React Lymphs (Man) 0.0 K/mm3 08/10/17 04:45 Monocytes # (Manual) 2.2 K/mm3 (0.0-0.8) H 08/10/17 04:45 Eosinophils # (Manual) 0.3 K/mm3 (0.0-0.4) 08/10/17 04:45 Basophils # (Manual) 0.2 K/mm3 (0.0-0.1) H 08/10/17 04:45 Metamyelocytes # 0.0 K/mm3 08/10/17 04:45 Myelocytes # 0.0 K/mm3 08/10/17 04:45 Promyelocytes # 0.0 K/mm3 08/10/17 04:45 Blast Cells # 0.0 K/mm3 08/10/17 04:45 WBC Morphology Not Reportable 08/10/17 04:45 Hypersegmented Neuts Not Reportable 08/10/17 04:45 Hyposegmented Neuts Not Reportable 08/10/17 04:45 Hypogranular Neuts Not Reportable 08/10/17 04:45 Smudge Cells Not Reportable 08/10/17 04:45 Toxic Granulation Not Reportable 08/10/17 04:45 Toxic Vacuolation Rare 08/10/17 04:45 Dohle Bodies Not Reportable 08/10/17 04:45 Pelger-Huet Anomaly Not Reportable 08/10/17 04:45 Ariel Rods Not Reportable 08/10/17 04:45 Platelet Estimate Appears normal 08/10/17 04:45 Clumped Platelets Not Reportable 08/10/17 04:45 Plt Clumps, EDTA Not Reportable 08/10/17 04:45 Large Platelets Not Reportable 08/10/17 04:45 Giant Platelets Not Reportable 08/10/17 04:45 Platelet Satelliting Not Reportable 08/10/17 04:45 Plt Morphology Comment Not Reportable 08/10/17 04:45 RBC Morphology Not Reportable 08/10/17 04:45 Dimorphic RBCs Not Reportable 08/10/17 04:45 Polychromasia Not Reportable 08/10/17 04:45 Hypochromasia 1+ 08/10/17 04:45 Poikilocytosis Not Reportable 08/10/17 04:45 Anisocytosis 1+ 08/10/17 04:45 Microcytosis Not Reportable 08/10/17 04:45 Macrocytosis Not Reportable 08/10/17 04:45 Spherocytes Not Reportable 08/10/17 04:45 Pappenheimer Bodies Not Reportable 08/10/17 04:45 Sickle Cells Not Reportable 08/10/17 04:45 Target Cells Not Reportable 08/10/17 04:45 Tear Drop Cells Not Reportable 08/10/17 04:45 Ovalocytes Not Reportable 08/10/17 04:45 Helmet Cells Not Reportable 08/10/17 04:45 [place] Bodies Not Reportable 08/10/17 04:45 Reeves Rings Not Reportable 08/10/17 04:45 [place] Cells Not Reportable 08/10/17 04:45 Bite Cells Not Reportable 08/10/17 04:45 Crenated Cell Not Reportable 08/10/17 04:45 Elliptocytes Not Reportable 08/10/17 04:45 Acanthocytes (Spur) Not Reportable 08/10/17 04:45 Rouleaux Not Reportable 08/10/17 04:45 Hemoglobin C Crystals Not Reportable 08/10/17 04:45 Schistocytes Not Reportable 08/10/17 04:45 Malaria parasites Not Reportable 08/10/17 04:45 Jovanni Bodies Not Reportable 08/10/17 04:45 Hem Pathologist Commnt No 08/10/17 04:45 PT 14.7 Sec. (12.2-14.9) 08/08/17 14:59 INR 1.09 (0.87-1.13) 08/08/17 14:59 APTT 31.0 Sec. (24.2-36.6) 08/08/17 14:09 POC ABG pH 7.490 (7.35-7.45) H 08/08/17 21:31 POC ABG pCO2 35.4 (35-45) 08/08/17 21:31 POC ABG pO2 122 (80-105) H 08/08/17 21:31 POC ABG HCO3 26.9 08/08/17 21:31 POC ABG Total CO2 28 08/08/17 21:31 POC ABG O2 Sat 99 08/08/17 21:31 POC ABG Base Excess 4 08/08/17 21:31 VBG pH 7.462 (7.320-7.420) H 08/08/17 14:52 FiO2 28 % 08/08/17 21:31 Sodium 136 mmol/L (137-145) L 08/11/17 04:00 Potassium 3.9 mmol/L (3.6-5.0) 08/11/17 04:00 Chloride 96.3 mmol/L (98-107) L 08/11/17 04:00 Carbon Dioxide 25 mmol/L (22-30) 08/11/17 04:00 Anion Gap 19 mmol/L 08/11/17 04:00 BUN 26 mg/dL (7-17) H 08/11/17 04:00 Creatinine 6.4 mg/dL (0.7-1.2) H 08/11/17 04:00 Estimated GFR 8 ml/min 08/11/17 04:00 BUN/Creatinine Ratio 4.06 % 08/11/17 04:00 Glucose 135 mg/dL (65-100) H 08/11/17 04:00 Lactic Acid 0.70 mmol/L (0.7-2.0) 08/09/17 05:00 Calcium 8.2 mg/dL (8.4-10.2) L 08/11/17 04:00 Phosphorus 4.00 mg/dL (2.5-4.5) 08/11/17 04:00 Magnesium 1.30 mg/dL (1.7-2.3) L 08/11/17 04:00 Total Bilirubin 0.50 mg/dL (0.1-1.2) 08/10/17 04:45 Direct Bilirubin 0.2 mg/dL (0-0.2) 08/08/17 14:11 Indirect Bilirubin 0.3 mg/dL 08/08/17 14:11 AST 10 units/L (5-40) 08/10/17 04:45 ALT 11 units/L (7-56) 08/10/17 04:45 Alkaline Phosphatase 138 units/L (35-129) H 08/10/17 04:45 Ammonia 25.0 umol/L (25-60) 08/08/17 14:52 Troponin T 0.132 ng/mL (0.00-0.029) H* 08/09/17 13:25 NT-Pro-B Natriuret Pep 6156 pg/mL (0-900) H 08/08/17 14:11 Total Protein 4.8 g/dL (6.3-8.2) L 08/10/17 04:45 Albumin 1.4 g/dL (3.9-5) L 08/10/17 04:45 Albumin/Globulin Ratio 0.4 % 08/10/17 04:45 Triglycerides 62 mg/dL (2-149) 08/08/17 21:23 Cholesterol 91 mg/dL (50-199) 08/08/17 21:23 LDL Cholesterol Direct 53 mg/dL (50-130) 08/08/17 21:23 HDL Cholesterol 26 mg/dL (40-59) L 08/08/17 21:23 Cholesterol/HDL Ratio 3.50 % 08/08/17 21:23 TSH 6.580 mlU/mL (0.270-4.200) H 08/08/17 14:22 Free T4 1.46 ng/dL (0.76-1.46) 08/08/17 14:22 Urine Color Yellow (Yellow) 08/08/17 20:15 Urine Turbidity Turbid (Clear) 08/08/17 20:15 Urine pH 8.0 (5.0-7.0) H 08/08/17 20:15 Ur Specific [place] 1.015 (1.003-1.030) 08/08/17 20:15 Urine Protein 100 mg/dl mg/dL (Negative) 08/08/17 20:15 Urine Glucose (UA) Neg mg/dL (Negative) 08/08/17 20:15 Urine Ketones Neg mg/dL (Negative) 08/08/17 20:15 Urine Blood Mod (Negative) 08/08/17 20:15 Urine Nitrite Neg (Negative) 08/08/17 20:15 Urine Bilirubin Neg (Negative) 08/08/17 20:15 Urine Urobilinogen < 2.0 mg/dL (<2.0) 08/08/17 20:15 Ur Leukocyte Esterase Lg (Negative) 08/08/17 20:15 Urine WBC (Auto) 24.0 /HPF (0.0-6.0) H 08/08/17 20:15 Urine RBC (Auto) 3.0 /HPF (0.0-6.0) 08/08/17 20:15 U Epithel Cells (Auto) 3.0 /HPF (0-13.0) 08/08/17 20:15 Urine Bacteria (Auto) 4+ /HPF (Negative) 08/08/17 20:15 Urine Mucus 3+ /HPF 08/08/17 20:15 Fluid Type Peritoneal 08/08/17 18:18 Fluid Color Straw 08/08/17 18:18 Fluid Appearance Clear 08/08/17 18:18 Fluid pH 7.74 08/08/17 18:18 Fluid WBC 4 /mm3 08/08/17 18:18 Fluid RBC 1 /mm3 08/08/17 18:18 Fluid Seg Neutrophils 12 % 08/08/17 18:18 Fluid Lymphocytes 0 % 08/08/17 18:18 Fluid Reactive Lymphs 0 % 08/08/17 18:18 Fluid Monocytes 1 % 08/08/17 18:18 Fluid Eosinophils 0 % 08/08/17 18:18 Fluid Basophils 0 % 08/08/17 18:18 Random Vancomycin 20.5 ug/mL (0-40.0) 08/10/17 04:45 Blood Type O POSITIVE 08/08/17 14:52 Antibody Screen Negative 08/08/17 14:52
[2017-08-11] MEDS: MORPHINE IV PRN (22:11)
--- NOTE | 2017-08-11 23:31 | Consultation ---
History of Present Illness - Reason for Consult Consult date: 08/11/17 leukocytosis Requesting physician: ANTHONY RODRIGUEZ - History of Present Illness Thank you for this consult, patient seen/examined, record reviewed, case d/w patient at the bed side. Asked to see for the reason above.patient does have right leg pressure ulcer. She does have bandemia. This is probably infectious related, should recover once treated.otherwise, can do w/up out patient if d/c as notes suggested.Make sure the PD access is not infected also. Past History Past Medical History: arthritis, ESRD, heart failure, hypertension, other ( chronic Pain, Obesity) Past Surgical History: cholecystectomy, total knee replacement, Other (Neck surgery) Social history: , lives with family. denies: smoking, alcohol abuse, prescription drug abuse, IV drug use Family history: CAD, hypertension Medications and Allergies Allergies Allergy/AdvReac Type Severity Reaction Status Date / Time Penicillins Allergy Shortness Verified 09/07/13 07:21 of Breath Home Medications Medication Instructions Recorded Confirmed Last Taken Type Cyclobenzaprine [Flexeril 10 MG 10 mg PO BID 09/07/13 08/09/17 07/29/17 History TAB] HYDROcodone/ACETAMINOPHEN 1 tab PO BID PRN 09/07/13 08/09/17 07/30/17 History [Hydrocodone-Acetaminophnen(Nf) 10/500 mg Tab] buPROPion [Wellbutrin] 150 mg PO DAILY 07/06/14 08/09/17 1 Week Ago History Calcitriol [Rocaltrol] 1 mcg PO QDAY 08/09/17 08/09/17 07/30/17 History FLUoxetine [PROzac] 40 mg PO QDAY 08/09/17 08/09/17 1 Week Ago History Pantoprazole [Protonix] 40 mg PO QDAY 08/09/17 08/09/17 07/30/17 History Potassium Chloride 40 meq PO BID 08/09/17 08/09/17 07/30/17 History Kori-Milka Rx Tablet 1 mg PO 4XD 08/09/17 08/09/17 08/09/17 15:58 History Active Meds: Active Medications Al Hydrox/Mg Hydrox/Simethicone (Alum-Mag Hydrox-Simeth [id number]/5ml) 15 ml PO Q4H PRN PRN Reason: Indigestion Last Admin: 08/09/17 23:37 Dose: 15 ml Hydrophilic Ointment (Vaseline Lip Therapy) 1 applic TP DIRECT PRN PRN Reason: DRY LIPS Norepinephrine (Levophed Drip 4 Mg/Ns 250 Ml) 4 mg in 250 mls @ 7.5 mls/hr IV TITR GLORIA; 2 MCG/MIN PRN Reason: Protocol Last Admin: 08/09/17 14:53 Dose: 6.66 mcg/min, 24.975 mls/hr Levofloxacin/Dextrose (Levaquin 500mg/100ml) 500 mg in 100 mls @ 100 mls/hr IV Q48H GLORIA Last Admin: 08/10/17 22:45 Dose: 100 mls/hr Sodium Chloride (Nacl 0.9% 1000 Ml) 1,000 mls @ 100 mls/hr IV DIRECT GLORIA Lactulose (Cephulac) 20 gm PO Q6HR GLORIA Last Admin: 08/11/17 18:09 Dose: Not Given Midodrine (Proamatine) 5 mg PO TID GLORIA Last Admin: 08/11/17 21:24 Dose: 5 mg Morphine Sulfate (Morphine) 1 mg IV Q4H PRN PRN Reason: Pain, Moderate (4-6) Last Admin: 08/11/17 22:11 Dose: 1 mg Ondansetron HCl (Zofran) 4 mg IV Q6H PRN PRN Reason: Nausea And Vomiting Last Admin: 08/11/17 18:04 Dose: 4 mg Peritoneal Dialysis Solution (Dianeal Pd-2 W/1.5% Dextrose) 2,000 ml IP Q6HR GLORIA Last Admin: 08/11/17 21:32 Dose: 2,000 ml Zolpidem Tartrate (Ambien) 5 mg PO QHS PRN PRN Reason: Sleep Last Admin: 08/09/17 23:37 Dose: 5 mg Review of Systems Breasts: deferred Musculoskeletal: shooting leg pain Exam - Constitutional Vitals: Temp Pulse Resp BP Pulse Ox 98.0 F 102 H 20 98/58 99 08/11/17 19:27 08/11/17 19:27 08/11/17 19:27 08/11/17 19:27 08/11/17 19:27 General appearance: Present: no acute distress, well-nourished - EENT Eyes: Present: PERRL ENT: hearing intact, clear oral mucosa - Neck Neck: Present: supple, normal ROM - Respiratory Respiratory effort: normal Respiratory: bilateral: CTA - Cardiovascular Heart Sounds: Present: S1 & S2. Absent: rub, click - Extremities Extremities: pulses symmetrical, No edema Peripheral Pulses: within normal limits - Abdominal General gastrointestinal: Present: soft, non-tender, non-distended, normal bowel sounds Female genitourinary: Present: deferred - Rectal Rectal Exam: deferred - Integumentary Integumentary: Present: clear, warm, dry - Musculoskeletal Musculoskeletal: gait normal, strength equal bilaterally - Psychiatric Psychiatric: appropriate mood/affect, intact judgment & insight - Neurologic Neurologic: CNII-XII intact, moves all extremities Results - Labs CBC & Chem 7: 08/11/17 04:00 08/11/17 04:00 Labs: Abnormal lab results 08/11/17 08/11/17 Range/Units 04:00 04:00 WBC 19.3 H (4.5-11.0) K/mm3 RBC 3.10 L (3.65-5.03) M/mm3 Hgb 9.5 L (10.1-14.3) gm/dl Hct 28.2 L (30.3-42.9) % RDW 19.2 H (13.2-15.2) % Plt Count 463 H (140-440) K/mm3 Lymph % (Auto) 7.5 L (13.4-35.0) % [place] % (Auto) 14.6 H (0.0-7.3) % [place] # 2.8 H (0.0-0.8) K/mm3 Seg Neutrophils % 77.0 H (40.0-70.0) % Seg Neutrophils # 14.8 H (1.8-7.7) K/mm3 Sodium 136 L (137-145) mmol/L Chloride 96.3 L (98-107) mmol/L BUN 26 H (7-17) mg/dL Creatinine 6.4 H (0.7-1.2) mg/dL Glucose 135 H (65-100) mg/dL Calcium 8.2 L (8.4-10.2) mg/dL Magnesium 1.30 L (1.7-2.3) mg/dL Assessment and Plan - Patient Problems (1) End-stage renal disease on peritoneal dialysis Current Visit: Yes Status: Acute Plan to address problem: continue PD (2) Leukocytosis Current Visit: Yes Status: Acute Qualifiers: Leukocytosis type: L Plan to address problem: See notes above. make sure that PD access is clean also.
[2017-08-12] MEDS: CEPHULAC PO SCH ×3 (00:34→18:05)
[2017-08-12] MEDS: DIANEAL PD-2 W/1.5% DEXTROSE IP SCH ×6 (01:37→20:28)
[2017-08-12 06:19] LABS: Hematocrit 27.9 % (30.3-42.9); Hemoglobin 9.3 gm/dl (10.1-14.3); Mean Corpuscular HGB Conc 33 % (30-34); Mean Corpuscular Hemoglobin 30 pg (28-32); Mean Corpuscular Volume 91 fl (79-97); Platelet Count 471 K/mm3 (140-440); Red Blood Count 3.06 M/mm3 (3.65-5.03); Red Cell Distribution Width 18.4 % (13.2-15.2); White Blood Count 20.1 K/mm3 (4.5-11.0)
[2017-08-12 06:31] LABS: INR 1.14 (0.87-1.13); Partial Thromboplastin Time 35.5 Sec. (24.2-36.6)
[2017-08-12 06:45] LABS: Albumin 1.7 g/dL (3.9-5); Albumin/Globulin Ratio 0.4 %; BUN/Creatinine Ratio 4.19; Bilirubin,Total 0.4 mg/dL (0.1-1.2); Calcium 8.4 mg/dL (8.4-10.2); Chloride 96.6 mmol/L (98-107); Magnesium 1.9 mg/dL (1.7-2.3); Phosphorous 3.5 mg/dL (2.5-4.5); Potassium 3.3 mmol/L (3.6-5.0); Total Protein 5.5 g/dL (6.3-8.2)
[2017-08-12 07:43] LABS: Basophils % (Manual) 0 % (0.0-1.8); Blastocytes % (Manual) 0 %; Eosinophils % (Manual) 0 % (0.0-4.3)
[2017-08-12 07:44] LABS: Anisocytosis 1+; Diff Status Complete; Elliptocytes Rare; Hypochromasia 1+; Ovalocytes Few; Target Cells Few
--- NOTE | 2017-08-12 08:53 | Progress Note ---
Assessment and Plan - Patient Problems (1) End-stage renal disease on peritoneal dialysis Current Visit: Yes Status: Chronic Plan to address problem: Continue PD with 1.5% solution manually. Monitor volume status. (2) Anemia Current Visit: No Status: Chronic Qualifiers: Anemia type: due to chronic kidney disease Iron deficiency anemia type: I Vitamin B12 deficiency anemia type: V Folate deficiency anemia type: F Bone marrow failure anemia type: B Hemolytic anemia type: H Other causes of anemia: O Chronic kidney disease stage: C Plan to address problem: Epogen. (3) Hypotension Current Visit: Yes Status: Chronic Qualifiers: Hypotension type: unspecified hypotension type Trimester: T Qualified Code(s): I95.9 - Hypotension, unspecified Plan to address problem: On Midodrine. (4) Leukocytosis Current Visit: No Status: Acute Qualifiers: Leukocytosis type: L Plan to address problem: Followed by ID and Heme-Onc. Subjective Date of service: 08/12/17 Interval history: Patient c/o poor appetite. Objective - Vital Signs Vital signs: Vital Signs - 12hr 08/12/17 08/12/17 00:33 03:50 Temperature 97.9 F 97.9 F Pulse Rate 97 H 100 H Respiratory 20 19 Rate Blood Pressure 108/65 111/65 O2 Sat by Pulse 96 94 Oximetry - General Appearance General appearance: well-developed, appears stated age, obese, other (no distress) EENT: ATNC, PERRL, hearing intact Neck: no JVD, supple Respiratory: Present: Clear to Ascultation Cardiology: regular, S1S2, no murmurs Gastrointestinal: normoactive bowel sounds, no tenderness, obese, other (PD catheter noted) Neurologic: no asterixis, other (right LE weakness) Musculoskeletal: other (no edema) Psychiatric: mood/affect appropriate, cooperative - Lab 08/13/17 06:14 08/13/17 06:14 Most recent lab results Calcium 8.4 mg/dL (8.4-10.2) 08/12/17 05:50 Phosphorus 3.50 mg/dL (2.5-4.5) 08/12/17 05:50 Magnesium 1.90 mg/dL (1.7-2.3) 08/12/17 05:50
[2017-08-12] MEDS: PROAMATINE PO SCH ×3 (09:04→20:22)
--- NOTE | 2017-08-12 10:22 | Progress Note ---
Assessment and Plan Assessment: Chronic hypotension - stable Pre-syncope Autonomic dysfunction Elevated troponin ESRD on peritoneal dialysis Leukocytosis - pt afebrile; blood cultures with no growth; urine culture with no growth; peritoneal fluid culture with no growth. RLE wound/abscess Poor oral intake - for PEG placement today. History of cervical surgery and postoperative complications, wheelchair bound since then Morbid obesity Plan: Currently stable cardiac status. Cont midodrine. IV abx per primary. For PEG placement today. Will see PRN. The patient has been seen in conjunction with Dr. Jacobo who agrees with the assessment and plan of care. Subjective Date of service: 08/12/17 Principal diagnosis: hypotension Interval history: Pt resting comfortably in bed, denies any current complaints. VSS. Awaiting PEG placement today. Objective Last Vital Signs Temp 97.9 F 08/12/17 03:50 Pulse 100 H 08/12/17 03:50 Resp 19 08/12/17 03:50 BP 111/65 08/12/17 03:50 Pulse Ox 98 08/12/17 10:12 - Physical Examination General: Appears Well, No Apparent Distress HEENT: Positive: EOMI, Normocephaly, Mucus Membranes Moist Neck: Positive: neck supple Cardiac: Positive: Reg Rate and Rhythm, S1/S2, Systolic Murmur Lungs: Positive: clear to auscultation Neuro: Positive: Other (right lower extremity weakness) Abdomen: Positive: Soft, Active Bowel Sounds, Tender (mildly tender) Skin: Positive: Clear. Negative: Rash Musculoskeletal: Normal Range of Motion Extremities: Absent: edema - Labs and Meds Cardiac Enzymes 08/12/17 Range/Units 05:50 AST 9 (5-40) units/L Coagulation 08/12/17 Range/Units 05:50 PT 15.2 H (12.2-14.9) Sec. INR 1.14 H (0.87-1.13) APTT 35.5 (24.2-36.6) Sec. CBC 08/12/17 Range/Units 05:50 WBC 20.1 H (4.5-11.0) K/mm3 RBC 3.06 L (3.65-5.03) M/mm3 Hgb 9.3 L (10.1-14.3) gm/dl Hct 27.9 L (30.3-42.9) % Plt Count 471 H (140-440) K/mm3 Comprehensive Metabolic Panel 08/12/17 Range/Units 05:50 Sodium 136 L (137-145) mmol/L Potassium 3.3 L (3.6-5.0) mmol/L Chloride 96.6 L (98-107) mmol/L Carbon Dioxide 24 (22-30) mmol/L BUN 26 H (7-17) mg/dL Creatinine 6.2 H (0.7-1.2) mg/dL Glucose 133 H (65-100) mg/dL Calcium 8.4 (8.4-10.2) mg/dL AST 9 (5-40) units/L ALT 9 (7-56) units/L Alkaline Phosphatase 139 H (35-129) units/L Total Protein 5.5 L (6.3-8.2) g/dL Albumin 1.7 L (3.9-5) g/dL - Imaging and Cardiology EKG: image reviewed Echo: report reviewed (EF 55-60%, trace MR, trace TR) - Telemetry EKG Rhythm: Sinus Rhythm - EKG Sinus rhythms and dysrhythmias: sinus rhythm Repolarization changes or abnormalities: ST or T wave suggestive of ischemia
--- NOTE | 2017-08-12 13:50 | Consultation ---
History of Present Illness - Reason for Consult Consult date: 08/12/17 fever Requesting physician: ANTHONY RODRIGUEZ - History of Present Illness 68 years old female with history of ESRD on peritoneal dialysis, hypertension ( recently placed on PO midodrine for hypotension), paraplegia secondary to a cervical spine surgery, admitted on 08/08/2017 due to weakness, malaise and hypotension. Of note, patient was admitted to [facility] from July 17 - 2016 and was found to have mild pancreatitis. She was rule out for peritoneal catheter infection. Also, patient reports she has urinary stents in place which are replaced every 6 months. She also has a chronic indweling ivan cath. In the ED, her temperature was 98.5, blood pressure 66/41, heart rate 80. White blood cell was 17,000. Her creatinine was 6.6. UA showed large LA, WBC 24. Peritoneal fluid WBC 6. Patient was placed on levophed initially. Ivan was found to have purulent urine and was exchanged. Microbiology: Blood cultures: 08/08 ngtd Urine cultures: Respiratory cultures: Wound cultures: Stool cultures: Other: 08/08 peritoneal flid + PLAST[employer]EM[employer]/Diphteroids Current Antimicrobials: 08/10 levaquin Previous Antimicrobials: Past History Past Medical History: arthritis, ESRD, heart failure, hypertension, other ( chronic Pain, Obesity) Past Surgical History: cholecystectomy, total knee replacement, Other (Neck surgery) Social history: , lives with family. denies: smoking, alcohol abuse, prescription drug abuse, IV drug use Family history: CAD, hypertension Medications and Allergies Allergies Allergy/AdvReac Type Severity Reaction Status Date / Time Penicillins Allergy Shortness Verified 09/07/13 07:21 of Breath Home Medications Medication Instructions Recorded Confirmed Last Taken Type Cyclobenzaprine [Flexeril 10 MG 10 mg PO BID 09/07/13 08/09/17 07/29/17 History TAB] HYDROcodone/ACETAMINOPHEN 1 tab PO BID PRN 09/07/13 08/09/17 07/30/17 History [Hydrocodone-Acetaminophnen(Nf) 10/500 mg Tab] buPROPion [Wellbutrin] 150 mg PO DAILY 07/06/14 08/09/17 1 Week Ago History Calcitriol [Rocaltrol] 1 mcg PO QDAY 08/09/17 08/09/17 07/30/17 History FLUoxetine [PROzac] 40 mg PO QDAY 08/09/17 08/09/17 1 Week Ago History Pantoprazole [Protonix] 40 mg PO QDAY 08/09/17 08/09/17 07/30/17 History Potassium Chloride 40 meq PO BID 08/09/17 08/09/17 07/30/17 History Kori-Milka Rx Tablet 1 mg PO 4XD 08/09/17 08/09/17 08/09/17 15:58 History Active Meds: Active Medications Al Hydrox/Mg Hydrox/Simethicone (Alum-Mag Hydrox-Simeth [phone]/5ml) 15 ml PO Q4H PRN PRN Reason: Indigestion Last Admin: 08/09/17 23:37 Dose: 15 ml Hydrophilic Ointment (Vaseline Lip Therapy) 1 applic TP DIRECT PRN PRN Reason: DRY LIPS Levofloxacin/Dextrose (Levaquin 500mg/100ml) 500 mg in 100 mls @ 100 mls/hr IV Q48H GLORIA Last Admin: 08/10/17 22:45 Dose: 100 mls/hr Sodium Chloride (Nacl 0.9% 1000 Ml) 1,000 mls @ 100 mls/hr IV DIRECT GLORIA Lactulose (Cephulac) 20 gm PO Q6HR GLORIA Last Admin: 08/12/17 06:49 Dose: Not Given Midodrine (Proamatine) 5 mg PO TID GLORIA Last Admin: 08/12/17 09:04 Dose: 5 mg Morphine Sulfate (Morphine) 1 mg IV Q4H PRN PRN Reason: Pain, Moderate (4-6) Last Admin: 08/11/17 22:11 Dose: 1 mg Ondansetron HCl (Zofran) 4 mg IV Q6H PRN PRN Reason: Nausea And Vomiting Last Admin: 08/11/17 18:04 Dose: 4 mg Peritoneal Dialysis Solution (Dianeal Pd-2 W/1.5% Dextrose) 2,000 ml IP Q6HR GLORIA Last Admin: 08/12/17 08:19 Dose: 2,000 ml Zolpidem Tartrate (Ambien) 5 mg PO QHS PRN PRN Reason: Sleep Last Admin: 08/09/17 23:37 Dose: 5 mg Review of Systems Constitutional: fever, chills, fatigue, weakness Ears, nose, mouth and throat: no nasal congestion, no sinus pressure Cardiovascular: no chest pain, no edema, no syncope Respiratory: no cough with sputum Gastrointestinal: no abdominal pain, no nausea, no vomiting, no diarrhea Genitourinary Female: no pelvic pain, no flank pain, no dysuria Rectal: no pain Physical Examination - Physical Exam Narrative exam: General appearance: Alert in NAD Eyes: anicteric sclerae, moist conjunctivae; no lid-lag; PERRLA HENT: Atraumatic; oropharynx clear Neck: Trachea midline; supple, no thyromegaly or lymphadenopathy Lungs: CTA, with normal respiratory effort and no intercostal retractions CV: RRR, no murmurs Abdomen: Soft, non-tender Extremities: + peripheral edema + leg ulcer Skin: Normal temperature, turgor and texture; no rash, ulcers or subcutaneous nodules Psych: Appropriate affect, alert and oriented to person, place and time. Neuro: alert and oriented x 3. Moving all extermities Lines: + femoral line - Constitutional Vitals: Vital Signs Temp Pulse Resp BP Pulse Ox 97.9 F 100 H 19 111/65 98 08/12/17 03:50 08/12/17 03:50 08/12/17 03:50 08/12/17 03:50 08/12/17 10:12 Temperature -Last 24 Hours Temperature 97.9 F Temperature 97.9 F Temperature 98.0 F Temperature 98.0 F Results - Labs CBC & Chem 7: 08/12/17 05:50 08/12/17 05:50 Labs: Abnormal lab results 08/12/17 08/12/17 08/12/17 Range/Units 05:50 05:50 05:50 WBC 20.1 H (4.5-11.0) K/mm3 RBC 3.06 L (3.65-5.03) M/mm3 Hgb 9.3 L (10.1-14.3) gm/dl Hct 27.9 L (30.3-42.9) % RDW 18.4 H (13.2-15.2) % Plt Count 471 H (140-440) K/mm3 Seg Neuts % (Manual) 85.0 H (40.0-70.0) % Lymphocytes % (Manual) 8.0 L (13.4-35.0) % Seg Neutrophils # Man 17.1 H (1.8-7.7) K/mm3 Monocytes # (Manual) 1.0 H (0.0-0.8) K/mm3 PT 15.2 H (12.2-14.9) Sec. INR 1.14 H (0.87-1.13) Sodium 136 L (137-145) mmol/L Potassium 3.3 L (3.6-5.0) mmol/L Chloride 96.6 L (98-107) mmol/L BUN 26 H (7-17) mg/dL Creatinine 6.2 H (0.7-1.2) mg/dL Glucose 133 H (65-100) mg/dL Alkaline Phosphatase 139 H (35-129) units/L C-Reactive Protein (0.00-1.30) mg/dL Total Protein 5.5 L (6.3-8.2) g/dL Albumin 1.7 L (3.9-5) g/dL 08/12/17 Range/Units 05:50 WBC (4.5-11.0) K/mm3 RBC (3.65-5.03) M/mm3 Hgb (10.1-14.3) gm/dl Hct (30.3-42.9) % RDW (13.2-15.2) % Plt Count (140-440) K/mm3 Seg Neuts % (Manual) (40.0-70.0) % Lymphocytes % (Manual) (13.4-35.0) % Seg Neutrophils # Man (1.8-7.7) K/mm3 Monocytes # (Manual) (0.0-0.8) K/mm3 PT (12.2-14.9) Sec. INR (0.87-1.13) Sodium (137-145) mmol/L Potassium (3.6-5.0) mmol/L Chloride (98-107) mmol/L BUN (7-17) mg/dL Creatinine (0.7-1.2) mg/dL Glucose (65-100) mg/dL Alkaline Phosphatase (35-129) units/L C-Reactive Protein 28.90 H (0.00-1.30) mg/dL Total Protein (6.3-8.2) g/dL Albumin (3.9-5) g/dL Assessment and Plan Assessment: 1) SIRS: manifested by hypotension and leukocytosis, pt with chronic hypotension ; source CA-UTI +/- wound infection 2) CA-UTI: chronic ivan exchanged every [address] in [address] which are exchanged every 6 months 3) Paraplegia 4) ESRD on PD - no evidence of peritonitis, wbc count 2. PLAST[employer]EM[employer] and Diphteroids on peritoneal fluid likely contaminants. 5) Recent pancreatitis 6) Failure to thrive Plan: -follow-up blood cultures, urine culture -obtain repeat C-reactive protein (CRP) -check renal US -continue levaquin -check morning cortisol Thank you Dr Rodriguez for your consultation, will follow up with you. Ramya Lang MD Infectious Diseases Specialist [facility] M [phone] O [phone]
[2017-08-12] MEDS ORDERED: AMIDATE IV ONE (14:40)
[2017-08-12] MEDS ORDERED: WATER FOR IRRIG STERILE IR ONE (14:53)
--- NOTE | 2017-08-12 15:36 | Progress Note ---
Assessment and Plan Assessment and plan: chronic hypeotension - Patient is on IV fluids, IV antibiotics - Cardiology consulted and echo is normal - Patient has elevated troponin level End-stage renal disease on PD - Nephrology consult appreciated - Current to continue PD History of cervical surgery and postoperative wheelchair bound since then - pain control UTI on the setting of Indwelling catheter, RLE wound - on Levaquin Poor oral intake - GI consulted and will put PEG today Leukocytosis despite on antibiotics - Hematology consulted - ID consulted DVT prophylaxis Disposition - Continue inpatient care, discharge after PEG placement possibly tomorrow History Interval history: Patient was seen and evaluated this morning, patient is wheelchair bound, hypotensive but she is hypotensive at baseline. I have discussed with the management plan with the patient and daughter. I was called by [place] physician agreed with the management plan. Hospitalist Physical - Physical exam Narrative exam: Not in cardiopulmonary distress. The patient is obese. Vital signs as documented. Head exam is unremarkable. No scleral icterus . Neck is without jugular venous distension, thyromegaly, or carotid bruits. Lungs are clear to auscultation. Cardiac exam reveals regular rate and Rhythm. First and second heart sounds normal. No murmurs, rubs or gallops. Abdominal exam reveals PD catheter in Place. Extremities ulcer on the right leg. CUPOLA MAN: Alert and oriented 3. Paraparesis. - Constitutional Vitals: Temp Pulse Resp BP Pulse Ox 97.9 F 100 H 19 111/65 98 08/12/17 03:50 08/12/17 03:50 08/12/17 03:50 08/12/17 03:50 08/12/17 10:12 General appearance: Present: no acute distress, well-nourished Results - Labs CBC & Chem 7: 08/12/17 05:50 08/12/17 05:50 Labs: Laboratory Last Values WBC 20.1 K/mm3 (4.5-11.0) H 08/12/17 05:50 RBC 3.06 M/mm3 (3.65-5.03) L 08/12/17 05:50 Hgb 9.3 gm/dl (10.1-14.3) L 08/12/17 05:50 Hct 27.9 % (30.3-42.9) L 08/12/17 05:50 MCV 91 fl (79-97) 08/12/17 05:50 MCH 30 pg (28-32) 08/12/17 05:50 MCHC 33 % (30-34) 08/12/17 05:50 RDW 18.4 % (13.2-15.2) H 08/12/17 05:50 Plt Count 471 K/mm3 (140-440) H 08/12/17 05:50 Lymph % (Auto) 7.5 % (13.4-35.0) L 08/11/17 04:00 Richardson % (Auto) 14.6 % (0.0-7.3) H 08/11/17 04:00 Eos % (Auto) 0.5 % (0.0-4.3) 08/11/17 04:00 Baso % (Auto) 0.4 % (0.0-1.8) 08/11/17 04:00 Lymph # 1.5 K/mm3 (1.2-5.4) 08/11/17 04:00 Richardson # 2.8 K/mm3 (0.0-0.8) H 08/11/17 04:00 Eos # 0.1 K/mm3 (0.0-0.4) 08/11/17 04:00 Baso # 0.1 K/mm3 (0.0-0.1) 08/11/17 04:00 Add Manual Diff Complete 08/12/17 05:50 Total Counted 100 08/12/17 05:50 Seg Neutrophils % 77.0 % (40.0-70.0) H 08/11/17 04:00 Seg Neuts % (Manual) 85.0 % (40.0-70.0) H 08/12/17 05:50 Band Neutrophils % 0 % 08/12/17 05:50 Lymphocytes % (Manual) 8.0 % (13.4-35.0) L 08/12/17 05:50 Reactive Lymphs % (Man) 0 % 08/12/17 05:50 Monocytes % (Manual) 5.0 % (0.0-7.3) 08/12/17 05:50 Eosinophils % (Manual) 0 % (0.0-4.3) 08/12/17 05:50 Basophils % (Manual) 0 % (0.0-1.8) 08/12/17 05:50 Metamyelocytes % 2.0 % 08/12/17 05:50 Myelocytes % 0 % 08/12/17 05:50 Promyelocytes % 0 % 08/12/17 05:50 Blast Cells % 0 % 08/12/17 05:50 Nucleated RBC % Not Reportable 08/12/17 05:50 Seg Neutrophils # 14.8 K/mm3 (1.8-7.7) H 08/11/17 04:00 Seg Neutrophils # Man 17.1 K/mm3 (1.8-7.7) H 08/12/17 05:50 Band Neutrophils # 0.0 K/mm3 08/12/17 05:50 Lymphocytes # (Manual) 1.6 K/mm3 (1.2-5.4) 08/12/17 05:50 Abs React Lymphs (Man) 0.0 K/mm3 08/12/17 05:50 Monocytes # (Manual) 1.0 K/mm3 (0.0-0.8) H 08/12/17 05:50 Eosinophils # (Manual) 0.0 K/mm3 (0.0-0.4) 08/12/17 05:50 Basophils # (Manual) 0.0 K/mm3 (0.0-0.1) 08/12/17 05:50 Metamyelocytes # 0.4 K/mm3 08/12/17 05:50 Myelocytes # 0.0 K/mm3 08/12/17 05:50 Promyelocytes # 0.0 K/mm3 08/12/17 05:50 Blast Cells # 0.0 K/mm3 08/12/17 05:50 WBC Morphology Not Reportable 08/12/17 05:50 Hypersegmented Neuts Not Reportable 08/12/17 05:50 Hyposegmented Neuts Not Reportable 08/12/17 05:50 Hypogranular Neuts Not Reportable 08/12/17 05:50 Smudge Cells Not Reportable 08/12/17 05:50 Toxic Granulation Not Reportable 08/12/17 05:50 Toxic Vacuolation Not Reportable 08/12/17 05:50 Dohle Bodies Not Reportable 08/12/17 05:50 Pelger-Huet Anomaly Not Reportable 08/12/17 05:50 Ariel Rods Not Reportable 08/12/17 05:50 Platelet Estimate Appears normal 08/12/17 05:50 Clumped Platelets Not Reportable 08/12/17 05:50 Plt Clumps, EDTA Not Reportable 08/12/17 05:50 Large Platelets Not Reportable 08/12/17 05:50 Giant Platelets Not Reportable 08/12/17 05:50 Platelet Satelliting Not Reportable 08/12/17 05:50 Plt Morphology Comment Not Reportable 08/12/17 05:50 RBC Morphology Not Reportable 08/12/17 05:50 Dimorphic RBCs Not Reportable 08/12/17 05:50 Polychromasia Not Reportable 08/12/17 05:50 Hypochromasia 1+ 08/12/17 05:50 Poikilocytosis Not Reportable 08/12/17 05:50 Anisocytosis 1+ 08/12/17 05:50 Microcytosis Not Reportable 08/12/17 05:50 Macrocytosis Not Reportable 08/12/17 05:50 Spherocytes Not Reportable 08/12/17 05:50 Pappenheimer Bodies Not Reportable 08/12/17 05:50 Sickle Cells Not Reportable 08/12/17 05:50 Target Cells Few 08/12/17 05:50 Tear Drop Cells Not Reportable 08/12/17 05:50 Ovalocytes Few 08/12/17 05:50 Helmet Cells Not Reportable 08/12/17 05:50 [place] Bodies Not Reportable 08/12/17 05:50 [place] Rings Not Reportable 08/12/17 05:50 Pre[place] Cells Not Reportable 08/12/17 05:50 Bite Cells Not Reportable 08/12/17 05:50 Crenated Cell Not Reportable 08/12/17 05:50 Elliptocytes Rare 08/12/17 05:50 Acanthocytes (Spur) Not Reportable 08/12/17 05:50 Rouleaux Not Reportable 08/12/17 05:50 Hemoglobin C Crystals Not Reportable 08/12/17 05:50 Schistocytes Not Reportable 08/12/17 05:50 Malaria parasites Not Reportable 08/12/17 05:50 Jovanni Bodies Not Reportable 08/12/17 05:50 Hem Pathologist Commnt No 08/12/17 05:50 PT 15.2 Sec. (12.2-14.9) H 08/12/17 05:50 INR 1.14 (0.87-1.13) H 08/12/17 05:50 APTT 35.5 Sec. (24.2-36.6) 08/12/17 05:50 POC ABG pH 7.490 (7.35-7.45) H 08/08/17 21:31 POC ABG pCO2 35.4 (35-45) 08/08/17 21:31 POC ABG pO2 122 (80-105) H 08/08/17 21:31 POC ABG HCO3 26.9 08/08/17 21:31 POC ABG Total CO2 28 08/08/17 21:31 POC ABG O2 Sat 99 08/08/17 21:31 POC ABG Base Excess 4 08/08/17 21:31 VBG pH 7.462 (7.320-7.420) H 08/08/17 14:52 FiO2 28 % 08/08/17 21:31 Sodium 136 mmol/L (137-145) L 08/12/17 05:50 Potassium 3.3 mmol/L (3.6-5.0) L 08/12/17 05:50 Chloride 96.6 mmol/L (98-107) L 08/12/17 05:50 Carbon Dioxide 24 mmol/L (22-30) 08/12/17 05:50 Anion Gap 19 mmol/L 08/12/17 05:50 BUN 26 mg/dL (7-17) H 08/12/17 05:50 Creatinine 6.2 mg/dL (0.7-1.2) H 08/12/17 05:50 Estimated GFR 8 ml/min 08/12/17 05:50 BUN/Creatinine Ratio 4.19 % 08/12/17 05:50 Glucose 133 mg/dL (65-100) H 08/12/17 05:50 Lactic Acid 0.70 mmol/L (0.7-2.0) 08/09/17 05:00 Calcium 8.4 mg/dL (8.4-10.2) 08/12/17 05:50 Phosphorus 3.50 mg/dL (2.5-4.5) 08/12/17 05:50 Magnesium 1.90 mg/dL (1.7-2.3) 08/12/17 05:50 Total Bilirubin 0.40 mg/dL (0.1-1.2) 08/12/17 05:50 Direct Bilirubin 0.2 mg/dL (0-0.2) 08/08/17 14:11 Indirect Bilirubin 0.3 mg/dL 08/08/17 14:11 AST 9 units/L (5-40) 08/12/17 05:50 ALT 9 units/L (7-56) 08/12/17 05:50 Alkaline Phosphatase 139 units/L (35-129) H 08/12/17 05:50 Ammonia 25.0 umol/L (25-60) 08/08/17 14:52 Troponin T 0.132 ng/mL (0.00-0.029) H* 08/09/17 13:25 C-Reactive Protein 28.90 mg/dL (0.00-1.30) H 08/12/17 05:50 NT-Pro-B Natriuret Pep 6156 pg/mL (0-900) H 08/08/17 14:11 Total Protein 5.5 g/dL (6.3-8.2) L 08/12/17 05:50 Albumin 1.7 g/dL (3.9-5) L 08/12/17 05:50 Albumin/Globulin Ratio 0.4 % 08/12/17 05:50 Triglycerides 62 mg/dL (2-149) 08/08/17 21:23 Cholesterol 91 mg/dL (50-199) 08/08/17 21:23 LDL Cholesterol Direct 53 mg/dL (50-130) 08/08/17 21:23 HDL Cholesterol 26 mg/dL (40-59) L 08/08/17 21:23 Cholesterol/HDL Ratio 3.50 % 08/08/17 21:23 TSH 6.580 mlU/mL (0.270-4.200) H 08/08/17 14:22 Free T4 1.46 ng/dL (0.76-1.46) 08/08/17 14:22 Urine Color Yellow (Yellow) 08/08/17 20:15 Urine Turbidity Turbid (Clear) 08/08/17 20:15 Urine pH 8.0 (5.0-7.0) H 08/08/17 20:15 Ur Specific [place] 1.015 (1.003-1.030) 08/08/17 20:15 Urine Protein 100 mg/dl mg/dL (Negative) 08/08/17 20:15 Urine Glucose (UA) Neg mg/dL (Negative) 08/08/17 20:15 Urine Ketones Neg mg/dL (Negative) 08/08/17 20:15 Urine Blood Mod (Negative) 08/08/17 20:15 Urine Nitrite Neg (Negative) 08/08/17 20:15 Urine Bilirubin Neg (Negative) 08/08/17 20:15 Urine Urobilinogen < 2.0 mg/dL (<2.0) 08/08/17 20:15 Ur Leukocyte Esterase Lg (Negative) 08/08/17 20:15 Urine WBC (Auto) 24.0 /HPF (0.0-6.0) H 08/08/17 20:15 Urine RBC (Auto) 3.0 /HPF (0.0-6.0) 08/08/17 20:15 U Epithel Cells (Auto) 3.0 /HPF (0-13.0) 08/08/17 20:15 Urine Bacteria (Auto) 4+ /HPF (Negative) 08/08/17 20:15 Urine Mucus 3+ /HPF 08/08/17 20:15 Fluid Type Peritoneal 08/08/17 18:18 Fluid Color Straw 08/08/17 18:18 Fluid Appearance Clear 08/08/17 18:18 Fluid pH 7.74 08/08/17 18:18 Fluid WBC 4 /mm3 08/08/17 18:18 Fluid RBC 1 /mm3 08/08/17 18:18 Fluid Seg Neutrophils 12 % 08/08/17 18:18 Fluid Lymphocytes 0 % 08/08/17 18:18 Fluid Reactive Lymphs 0 % 08/08/17 18:18 Fluid Monocytes 1 % 08/08/17 18:18 Fluid Eosinophils 0 % 08/08/17 18:18 Fluid Basophils 0 % 08/08/17 18:18 Fluid Glucose 315 mg/dL (40-70) H 08/08/17 18:18 Random Vancomycin 20.5 ug/mL (0-40.0) 08/10/17 04:45 Blood Type O POSITIVE 08/08/17 14:52 Antibody Screen Negative 08/08/17 14:52
--- NOTE | 2017-08-12 16:17 | Progress Note ---
Assessment and Plan 1. Dyspepsia - will do EGD to assess for etiology. 2. Poor po intake - discussed at length with pt and her . Pt does not seem to have problem with mechanism of swallowing, but with desire. May have poor appetite due to infection or other comorbid conditions, or due to depression. If these cannot be corrected by other means such as antidepressants or appetite stimulants, or correcting other underlying conditions, may need to consider empiric nutritional support. In that case, can consider Dobhoff. Will not do EGD/PEG in pt on peritoneal dialysis due to need for tract to mature, and likelihood of infection, unless pt switched to hemodialysis. - discussed with Dr. Marie. Subjective Date of service: 08/12/17 Principal diagnosis: hypotension Interval history: Pt has no appetite. Also, complains of regurgitation and epigastric burning, even on daily PPI. states appetite poor x 4 months, worse x 2 wks. Pt denies problems swallowing, just has no desire. Objective - Constitutional Vitals: Vital Signs - 12hr 08/12/17 10:12 O2 Sat by Pulse 98 Oximetry General appearance: Present: no acute distress, obese - EENT Eyes: PERRL, EOM intact ENT: hearing intact - Respiratory Respiratory effort: normal - Gastrointestinal General gastrointestinal: Present: soft, tender (Mild, diffuse) - Labs CBC & Chem 7: 08/12/17 05:50 08/12/17 05:50 Labs: Abnormal lab results 08/12/17 08/12/17 08/12/17 Range/Units 05:50 05:50 05:50 WBC 20.1 H (4.5-11.0) K/mm3 RBC 3.06 L (3.65-5.03) M/mm3 Hgb 9.3 L (10.1-14.3) gm/dl Hct 27.9 L (30.3-42.9) % RDW 18.4 H (13.2-15.2) % Plt Count 471 H (140-440) K/mm3 Seg Neuts % (Manual) 85.0 H (40.0-70.0) % Lymphocytes % (Manual) 8.0 L (13.4-35.0) % Seg Neutrophils # Man 17.1 H (1.8-7.7) K/mm3 Monocytes # (Manual) 1.0 H (0.0-0.8) K/mm3 PT 15.2 H (12.2-14.9) Sec. INR 1.14 H (0.87-1.13) Sodium 136 L (137-145) mmol/L Potassium 3.3 L (3.6-5.0) mmol/L Chloride 96.6 L (98-107) mmol/L BUN 26 H (7-17) mg/dL Creatinine 6.2 H (0.7-1.2) mg/dL Glucose 133 H (65-100) mg/dL Alkaline Phosphatase 139 H (35-129) units/L C-Reactive Protein (0.00-1.30) mg/dL Total Protein 5.5 L (6.3-8.2) g/dL Albumin 1.7 L (3.9-5) g/dL 08/12/17 Range/Units 05:50 WBC (4.5-11.0) K/mm3 RBC (3.65-5.03) M/mm3 Hgb (10.1-14.3) gm/dl Hct (30.3-42.9) % RDW (13.2-15.2) % Plt Count (140-440) K/mm3 Seg Neuts % (Manual) (40.0-70.0) % Lymphocytes % (Manual) (13.4-35.0) % Seg Neutrophils # Man (1.8-7.7) K/mm3 Monocytes # (Manual) (0.0-0.8) K/mm3 PT (12.2-14.9) Sec. INR (0.87-1.13) Sodium (137-145) mmol/L Potassium (3.6-5.0) mmol/L Chloride (98-107) mmol/L BUN (7-17) mg/dL Creatinine (0.7-1.2) mg/dL Glucose (65-100) mg/dL Alkaline Phosphatase (35-129) units/L C-Reactive Protein 28.90 H (0.00-1.30) mg/dL Total Protein (6.3-8.2) g/dL Albumin (3.9-5) g/dL
[2017-08-12] MEDS: MORPHINE IV PRN (20:21)
[2017-08-12] MEDS: LEVAQUIN 500MG/100ML 500 MG/100 ML BAG IV SCH (21:25)
[2017-08-12] MEDS: ZOFRAN IV PRN (22:22)
--- NOTE | 2017-08-12 23:23 | Consultation ---
History of Present Illness - Reason for Consult Consult date: 08/12/17 - History of Present Illness Patient seen/examined, c/o feel bad, labs reviewed/notes reviewed, no new issues at this time. Past History Past Medical History: arthritis, ESRD, heart failure, hypertension, other ( chronic Pain, Obesity) Past Surgical History: cholecystectomy, total knee replacement, Other (Neck surgery) Social history: , lives with family. denies: smoking, alcohol abuse, prescription drug abuse, IV drug use Family history: CAD, hypertension Medications and Allergies Allergies Allergy/AdvReac Type Severity Reaction Status Date / Time Penicillins Allergy Shortness Verified 09/07/13 07:21 of Breath Home Medications Medication Instructions Recorded Confirmed Last Taken Type Cyclobenzaprine [Flexeril 10 MG 10 mg PO BID 09/07/13 08/09/17 07/29/17 History TAB] HYDROcodone/ACETAMINOPHEN 1 tab PO BID PRN 09/07/13 08/09/17 07/30/17 History [Hydrocodone-Acetaminophnen(Nf) 10/500 mg Tab] buPROPion [Wellbutrin] 150 mg PO DAILY 07/06/14 08/09/17 1 Week Ago History Calcitriol [Rocaltrol] 1 mcg PO QDAY 08/09/17 08/09/17 07/30/17 History FLUoxetine [PROzac] 40 mg PO QDAY 08/09/17 08/09/17 1 Week Ago History Pantoprazole [Protonix] 40 mg PO QDAY 08/09/17 08/09/17 07/30/17 History Potassium Chloride 40 meq PO BID 08/09/17 08/09/17 07/30/17 History Kori-Milka Rx Tablet 1 mg PO 4XD 08/09/17 08/09/17 08/09/17 15:58 History Active Meds: Active Medications Al Hydrox/Mg Hydrox/Simethicone (Alum-Mag Hydrox-Simeth 019-307-62cc/5ml) 15 ml PO Q4H PRN PRN Reason: Indigestion Last Admin: 08/09/17 23:37 Dose: 15 ml Hydrophilic Ointment (Vaseline Lip Therapy) 1 applic TP DIRECT PRN PRN Reason: DRY LIPS Levofloxacin/Dextrose (Levaquin 500mg/100ml) 500 mg in 100 mls @ 100 mls/hr IV Q48H GLORIA Last Admin: 08/12/17 21:25 Dose: 100 mls/hr Sodium Chloride (Nacl 0.9% 1000 Ml) 1,000 mls @ 100 mls/hr IV DIRECT GLORIA Lactulose (Cephulac) 20 gm PO Q6HR [facility] Last Admin: 08/12/17 18:05 Dose: Not Given Midodrine (Proamatine) 5 mg PO TID GLORIA Last Admin: 08/12/17 20:22 Dose: 5 mg Morphine Sulfate (Morphine) 1 mg IV Q4H PRN PRN Reason: Pain, Moderate (4-6) Last Admin: 08/12/17 20:21 Dose: 1 mg Ondansetron HCl (Zofran) 4 mg IV Q6H PRN PRN Reason: Nausea And Vomiting Last Admin: 08/12/17 22:22 Dose: 4 mg Peritoneal Dialysis Solution (Dianeal Pd-2 W/1.5% Dextrose) 2,000 ml IP Q6HR [facility] Last Admin: 08/12/17 20:28 Dose: 2,000 ml Zolpidem Tartrate (Ambien) 5 mg PO QHS PRN PRN Reason: Sleep Last Admin: 08/09/17 23:37 Dose: 5 mg Review of Systems Breasts: deferred Exam - Constitutional Vitals: Temp Pulse Resp BP Pulse Ox 97.9 F 100 H 19 111/65 98 08/12/17 03:50 08/12/17 20:09 08/12/17 03:50 08/12/17 03:50 08/12/17 10:12 General appearance: Present: mild distress, well-nourished - EENT Eyes: Present: PERRL ENT: hearing intact, clear oral mucosa - Neck Neck: Present: supple, normal ROM - Respiratory Respiratory effort: normal Respiratory: bilateral: CTA - Cardiovascular Heart Sounds: Present: S1 & S2. Absent: rub, click - Extremities Extremities: pulses symmetrical, No edema Peripheral Pulses: within normal limits - Abdominal General gastrointestinal: Present: soft, non-tender, non-distended, normal bowel sounds Female genitourinary: Present: deferred - Rectal Rectal Exam: deferred - Integumentary Integumentary: Present: clear, warm, dry - Musculoskeletal Musculoskeletal: gait normal, strength equal bilaterally - Psychiatric Psychiatric: appropriate mood/affect, intact judgment & insight - Neurologic Neurologic: CNII-XII intact, moves all extremities Results - Labs CBC & Chem 7: 08/12/17 05:50 08/12/17 05:50 Labs: Abnormal lab results 08/12/17 08/12/17 08/12/17 Range/Units 05:50 05:50 05:50 WBC 20.1 H (4.5-11.0) K/mm3 RBC 3.06 L (3.65-5.03) M/mm3 Hgb 9.3 L (10.1-14.3) gm/dl Hct 27.9 L (30.3-42.9) % RDW 18.4 H (13.2-15.2) % Plt Count 471 H (140-440) K/mm3 Seg Neuts % (Manual) 85.0 H (40.0-70.0) % Lymphocytes % (Manual) 8.0 L (13.4-35.0) % Seg Neutrophils # Man 17.1 H (1.8-7.7) K/mm3 Monocytes # (Manual) 1.0 H (0.0-0.8) K/mm3 PT 15.2 H (12.2-14.9) Sec. INR 1.14 H (0.87-1.13) Sodium 136 L (137-145) mmol/L Potassium 3.3 L (3.6-5.0) mmol/L Chloride 96.6 L (98-107) mmol/L BUN 26 H (7-17) mg/dL Creatinine 6.2 H (0.7-1.2) mg/dL Glucose 133 H (65-100) mg/dL Alkaline Phosphatase 139 H (35-129) units/L C-Reactive Protein (0.00-1.30) mg/dL Total Protein 5.5 L (6.3-8.2) g/dL Albumin 1.7 L (3.9-5) g/dL 08/12/17 08/12/17 Range/Units 05:50 16:23 WBC (4.5-11.0) K/mm3 RBC (3.65-5.03) M/mm3 Hgb (10.1-14.3) gm/dl Hct (30.3-42.9) % RDW (13.2-15.2) % Plt Count (140-440) K/mm3 Seg Neuts % (Manual) (40.0-70.0) % Lymphocytes % (Manual) (13.4-35.0) % Seg Neutrophils # Man (1.8-7.7) K/mm3 Monocytes # (Manual) (0.0-0.8) K/mm3 PT (12.2-14.9) Sec. INR (0.87-1.13) Sodium (137-145) mmol/L Potassium (3.6-5.0) mmol/L Chloride (98-107) mmol/L BUN (7-17) mg/dL Creatinine (0.7-1.2) mg/dL Glucose (65-100) mg/dL Alkaline Phosphatase (35-129) units/L C-Reactive Protein 28.90 H 26.10 H (0.00-1.30) mg/dL Total Protein (6.3-8.2) g/dL Albumin (3.9-5) g/dL Assessment and Plan - Patient Problems (1) End-stage renal disease on peritoneal dialysis Current Visit: Yes Status: Acute Plan to address problem: continue PD (2) Leukocytosis Current Visit: Yes Status: Acute Qualifiers: Leukocytosis type: L Plan to address problem: See notes above. make sure that PD access is clean also.
[2017-08-13] MEDS: CEPHULAC PO SCH ×4 (01:13→19:18)
[2017-08-13] MEDS: DIANEAL PD-2 W/1.5% DEXTROSE IP SCH ×5 (02:00→22:02)
[2017-08-13 06:38] LABS: Hematocrit 28.2 % (30.3-42.9); Hemoglobin 9.4 gm/dl (10.1-14.3); Mean Corpuscular HGB Conc 33 % (30-34); Mean Corpuscular Hemoglobin 30 pg (28-32); Mean Corpuscular Volume 91 fl (79-97); Platelet Count 492 K/mm3 (140-440); Red Blood Count 3.11 M/mm3 (3.65-5.03); Red Cell Distribution Width 18.2 % (13.2-15.2)
[2017-08-13 06:41] LABS: White Blood Count 21.8 K/mm3 (4.5-11.0)
[2017-08-13 06:57] LABS: Calcium 8.6 mg/dL (8.4-10.2); Chloride 96.2 mmol/L (98-107); Potassium 3.6 mmol/L (3.6-5.0)
[2017-08-13] MEDS: PROAMATINE PO SCH ×3 (08:23→21:42)
[2017-08-13 08:26] LABS: Anisocytosis 1+; Blastocytes % (Manual) 0 %; Hypochromasia 1+; Target Cells 1+
[2017-08-13 08:27] LABS: Diff Status Complete; Elliptocytes Few
[2017-08-13] MEDS: MORPHINE IV PRN ×3 (08:30→19:52)
--- NOTE | 2017-08-13 08:46 | Progress Note ---
Assessment and Plan - Patient Problems (1) End-stage renal disease on peritoneal dialysis Current Visit: Yes Status: Chronic Plan to address problem: Continue PD with 1.5% solution manually. Monitor volume status. (2) Anemia Current Visit: No Status: Chronic Qualifiers: Anemia type: due to chronic kidney disease Iron deficiency anemia type: I Vitamin B12 deficiency anemia type: V Folate deficiency anemia type: F Bone marrow failure anemia type: B Hemolytic anemia type: H Other causes of anemia: O Chronic kidney disease stage: on chronic dialysis Qualified Code(s ): N18.6 - End stage renal disease; D63.1 - Anemia in chronic kidney disease; Z99.2 - Dependence on renal dialysis Plan to address problem: Epogen. (3) Hypotension Current Visit: Yes Status: Chronic Qualifiers: Hypotension type: H Trimester: T Plan to address problem: On Midodrine. (4) Leukocytosis Current Visit: Yes Status: Acute Qualifiers: Leukocytosis type: unspecified Qualified Code(s): D72.829 - Elevated white blood cell count, unspecified Plan to address problem: Followed by ID and Heme-Onc. (5) Poor appetite Current Visit: Yes Status: Chronic Plan to address problem: EGD today. [place]. Subjective Date of service: 08/13/17 Principal diagnosis: hypotension Interval history: Patient c/o poor appetite. Objective - Vital Signs Vital signs: Vital Signs - 12hr 08/13/17 08/13/17 08/13/17 00:55 05:25 08:20 Temperature 97.9 F 98.0 F 97.6 F Pulse Rate 102 H 99 H 95 H Respiratory 22 20 Rate Blood Pressure 130/65 111/72 106/54 [Left] O2 Sat by Pulse 100 98 Oximetry 08/13/17 08:37 Temperature 97.6 F Pulse Rate 94 H Respiratory 18 Rate Blood Pressure 114/60 [Left] O2 Sat by Pulse 96 Oximetry - General Appearance General appearance: well-developed, appears stated age, obese, other (no distress) EENT: ATNC, PERRL, hearing intact Neck: supple Respiratory: Present: Clear to Ascultation Cardiology: regular, S1S2, no murmurs Gastrointestinal: normoactive bowel sounds, no tenderness, obese, other (PD catheter noted) Integumentary: no rash Neurologic: no asterixis, other (right LE weakness) Musculoskeletal: other (no edema) Psychiatric: mood/affect appropriate, cooperative - Lab 08/13/17 06:14 08/13/17 06:14 Most recent lab results Calcium 8.6 mg/dL (8.4-10.2) 08/13/17 06:14 Phosphorus 3.50 mg/dL (2.5-4.5) 08/12/17 05:50 Magnesium 1.90 mg/dL (1.7-2.3) 08/12/17 05:50
--- NOTE | 2017-08-13 09:43 | Progress Note ---
Assessment and Plan Assessment: 1) Sepsis: worsening leukocytosis; source complicated CA-UTI. CRP=28 2) CA-UTI: chronic ivan exchanged every 4 weeks and ureteral stents in place which are exchanged every 6 months ? urine cultures still pending should r/o MDR bacteria 3) Paraplegia 4) ESRD on PD - no evidence of peritonitis, wbc count 2. 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 5) Recent pancreatitis 6) Failure to thrive 7) Penicillin allergy-has taken keflex w/o problems Plan: -Urology consult - re: infected stents ? -add meropenem in view of worsening pain and leukocytosis - no better on levaquin for 3 days -stop levaquin -follow-up blood cultures, urine culture -check renal US -pending -f/u morning cortisol Thank you Dr Chen for your consultation, will follow up with you. Ramya Lang MD Infectious Diseases Specialist [facility] ([facility]) M [phone] O [phone] Subjective Date of service: 08/13/17 Principal diagnosis: hypotension Interval history: Remains sick c/o abdominal pain R>L, nausea. No fever. 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/Diphteroids Current Antimicrobials: 08/10 levaquin Previous Antimicrobials: Objective - Exam Narrative Exam: General appearance: Alert in NAD Eyes: anicteric sclerae, moist conjunctivae; no lid-lag; PERRLA HENT: Atraumatic; oropharynx clear Neck: Trachea midline; supple, no thyromegaly or lymphadenopathy Lungs: CTA, with normal respiratory effort and no intercostal retractions CV: RRR, no murmurs Abdomen: Soft, tender R>L Extremities: + peripheral edema + leg ulcer Skin: Normal temperature, turgor and texture; no rash, ulcers or subcutaneous nodules Psych: Appropriate affect, alert and oriented to person, place and time. Neuro: alert and oriented x 3. Moving all extermities Lines: + femoral line - Constitutional Vitals: Vital Signs Temp Pulse Resp BP Pulse Ox 97.6 F 94 H 18 114/60 96 08/13/17 08:37 08/13/17 08:37 08/13/17 08:37 08/13/17 08:37 08/13/17 08:37 Temperature -Last 24 Hours Temperature 97.6 F Temperature 97.6 F Temperature 98.0 F Temperature 97.9 F - Labs CBC & Chem 7: 08/13/17 06:14 08/13/17 06:14 Labs: Abnormal lab results 08/12/17 08/13/17 08/13/17 Range/Units 16:23 06:14 06:14 WBC 21.8 H (4.5-11.0) K/mm3 RBC 3.11 L (3.65-5.03) M/mm3 Hgb 9.4 L (10.1-14.3) gm/dl Hct 28.2 L (30.3-42.9) % RDW 18.2 H (13.2-15.2) % Plt Count 492 H (140-440) K/mm3 Seg Neuts % (Manual) 73.0 H (40.0-70.0) % Lymphocytes % (Manual) 2.0 L (13.4-35.0) % Monocytes % (Manual) 15 H (0.0-7.3) % Seg Neutrophils # Man 15.9 H (1.8-7.7) K/mm3 Lymphocytes # (Manual) 0.4 L (1.2-5.4) K/mm3 Monocytes # (Manual) 2.4 H (0.0-0.8) K/mm3 Chloride 96.2 L (98-107) mmol/L BUN 28 H (7-17) mg/dL Creatinine 5.6 H (0.7-1.2) mg/dL Glucose 114 H (65-100) mg/dL C-Reactive Protein 26.10 H (0.00-1.30) mg/dL
--- NOTE | 2017-08-13 09:54 | Anesthesia Day of Surgery ---
Anesthesia Day of Surgery - Day of Surgery Patient Examined: Yes Patient H&P Reviewed: Yes Patient is NPO: Yes
--- NOTE | 2017-08-13 09:56 | Anesthesia Consultation ---
Anesthesia Consult and Med Hx Date of service: 08/13/17 - Airway Anesthetic Teeth Evaluation: Edentulous ROM Head & Neck: Adequate Mental/Hyoid Distance: Adequate Mallampati Class: Class II Intubation Access Assessment: Probably Good - Pulmonary Exam CTA: Yes - Cardiac Exam Cardiac Exam: RRR - Pre-Operative Health Status ASA Pre-Surgery Classification: ASA3 Proposed Anesthetic Plan: MAC - Pulmonary Hx Smoking: No Hx Asthma: No Hx Respiratory Symptoms: No SOB: No COPD: Yes (Hx of Acute Respiratory Failure) Hx Pneumonia: No Hx Sleep Apnea: Yes - Cardiovascular System Hx Hypertension: Yes (hypotension recently) Hx Coronary Artery Disease: No Hx Heart Attack/AMI: No Hx Angina: No Hx Percutaneous Transluminal Coronary Angioplasty (PTCA): No Hx Cardia Arrhythmia: No Hx Pacemaker: No Hx Internal Defibrillator: No Hx Valvular Heart Disease: No Hx Heart Murmur: No Hx Peripheral Vascular Disease: No - Central Nervous System Hx Neuromuscular Disorder: Yes (wheelchair bound, cannot move right leg, hypersensitivity in right hand) Hx Seizures: No CVA: No Hx Back Pain: Yes (C4-6 disc disease s/p ACDF and posterior fusion ) Hx Psychiatric Problems: No - Gastrointestinal Hx Ulcer: Yes Hx Gastroesophageal Reflux Disease: No - Endocrine Hx Renal Disease: Yes Hx End Stage Renal Disease: Yes Hx Cirrhosis: No Hx Liver Disease: No Hx Insulin Dependent Diabetes: No Hx Non-Insulin Dependent Diabetes: No Hx Thyroid Disease: No - Hematic Hx Anemia: Yes Hx Sickle Cell Disease: No - Other Systems Hx Alcohol Use: Yes (wine 2 x week) Hx Substance Use: No Hx Cancer: No Hx Obesity: Yes - Additional Comments Anesthesia Medical History Comments: Sepsis
[2017-08-13] MEDS ORDERED: WATER FOR IRRIG STERILE IR ONE (09:58)
[2017-08-13] MEDS ORDERED: NACL 0.9% 1000 ML 1,000 ML IV SCH (10:00)
[2017-08-13] MEDS ORDERED: MERREM/NS 500 MG/50 ML 500 MG/50 ML BAG IV SCH (10:00)
[2017-08-13] MEDS ORDERED: AMIDATE IV ONE (11:34)
[2017-08-13] MEDS ORDERED: DIPRIVAN 10 MG/ML IV ONE (11:34)
--- NOTE | 2017-08-13 12:10 | Post Operative Note ---
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 Ulcerative esophagitis - biopsied distally. 2. Anatomy s/p gastric stapling, with pouch filled with bilious fluid, regurgitating into esophagus, that was aspirated. 3. Gastric hernia in superior aspect of pouch, with mucosal tissue bridge across opening, and a small ulcer. 4. Able to pass through staple portal with minimal resistance. 5. Remainder of gastric mucosa normal. 6. Small duodenal bulb erosion, and o/w normal duodenum. Procedure: EGD with biopsy Anesthesia: MAC Surgeon: DRU REED Estimated blood loss: none Pathology: list (1. Distal esophagus) Specimen disposition: to lab Condition: stable Disposition: floor
--- NOTE | 2017-08-13 12:22 | Progress Note ---
Assessment and Plan Assessment and plan: Sepsis. Patient with worsening leukocytosis. Etiology likely secondary to complicated CAUTI. Blood and Urine cultures pending. Meropenem started today. Check renal ultrasound. Chronic hypotension - Patient is on IV fluids, IV antibiotics - Cardiology following and echo is normal - Continue Midodrine End-stage renal disease on PD - Nephrology consult appreciated - Continue PD History of cervical surgery and postoperative wheelchair bound since then - pain control Ulcerative esophagitis/small gastric ulcer. Patient status post EGD today. Biopsy pending. UTI on the setting of Indwelling catheter, RLE wound - on Levaquin Poor oral intake - No PEG placement secondary to peritoneal dialysis. Leukocytosis despite on antibiotics - Hem - ID consulted DVT prophylaxis Disposition - Continue inpatient care, I discussed the case with [facility]. History Interval history: No new issues overnight. Hospitalist Physical - Constitutional Vitals: Temp Pulse Resp BP Pulse Ox 97.5 F L 100 H 14 109/64 97 08/13/17 11:48 08/13/17 12:03 08/13/17 12:03 08/13/17 12:03 08/13/17 12:03 General appearance: Present: mild distress, well-nourished - EENT Eyes: Present: PERRL, EOM intact ENT: hearing intact, clear oral mucosa, dentition normal - Neck Neck: Present: supple, normal ROM - Respiratory Respiratory effort: normal Respiratory: bilateral: CTA - Cardiovascular Rhythm: regular Heart Sounds: Present: S1 & S2. Absent: gallop, rub - Extremities Extremities: no ischemia, No edema, Full ROM - Abdominal General gastrointestinal: soft, non-tender, non-distended, normal bowel sounds - Integumentary Integumentary: Present: clear, warm, dry - Neurologic Neurologic: CNII-XII intact, moves all extremities Results - Labs CBC & Chem 7: 08/13/17 06:14 08/13/17 06:14 Labs: Laboratory Last Values WBC 21.8 K/mm3 (4.5-11.0) H 08/13/17 06:14 RBC 3.11 M/mm3 (3.65-5.03) L 08/13/17 06:14 Hgb 9.4 gm/dl (10.1-14.3) L 08/13/17 06:14 Hct 28.2 % (30.3-42.9) L 08/13/17 06:14 MCV 91 fl (79-97) 08/13/17 06:14 MCH 30 pg (28-32) 08/13/17 06:14 MCHC 33 % (30-34) 08/13/17 06:14 RDW 18.2 % (13.2-15.2) H 08/13/17 06:14 Plt Count 492 K/mm3 (140-440) H 08/13/17 06:14 Lymph % (Auto) 7.5 % (13.4-35.0) L 08/11/17 04:00 [place] % (Auto) Wheel Tuner 08/13/17 06:14 Eos % (Auto) 0.5 % (0.0-4.3) 08/11/17 04:00 Baso % (Auto) 0.4 % (0.0-1.8) 08/11/17 04:00 Lymph # 1.5 K/mm3 (1.2-5.4) 08/11/17 04:00 [place] # 2.8 K/mm3 (0.0-0.8) H 08/11/17 04:00 Eos # 0.1 K/mm3 (0.0-0.4) 08/11/17 04:00 Baso # 0.1 K/mm3 (0.0-0.1) 08/11/17 04:00 Add Manual Diff Complete 08/13/17 06:14 Total Counted 100 08/13/17 06:14 Seg Neutrophils % 77.0 % (40.0-70.0) H 08/11/17 04:00 Seg Neuts % (Manual) 73.0 % (40.0-70.0) H 08/13/17 06:14 Band Neutrophils % 10 % 08/13/17 06:14 Lymphocytes % (Manual) 2.0 % (13.4-35.0) L 08/13/17 06:14 Reactive Lymphs % (Man) 0 % 08/13/17 06:14 Monocytes % (Manual) 15 % (0.0-7.3) H 08/13/17 06:14 Eosinophils % (Manual) 0 % (0.0-4.3) 08/12/17 05:50 Basophils % (Manual) 0 % (0.0-1.8) 08/12/17 05:50 Metamyelocytes % 0 % 08/13/17 06:14 Myelocytes % 0 % 08/13/17 06:14 Promyelocytes % 0 % 08/13/17 06:14 Blast Cells % 0 % 08/13/17 06:14 Nucleated RBC % Not Reportable 08/13/17 06:14 Seg Neutrophils # 14.8 K/mm3 (1.8-7.7) H 08/11/17 04:00 Seg Neutrophils # Man 15.9 K/mm3 (1.8-7.7) H 08/13/17 06:14 Band Neutrophils # 3.1 K/mm3 08/13/17 06:14 Lymphocytes # (Manual) 0.4 K/mm3 (1.2-5.4) L 08/13/17 06:14 Abs React Lymphs (Man) 0.0 K/mm3 08/13/17 06:14 Monocytes # (Manual) 2.4 K/mm3 (0.0-0.8) H 08/13/17 06:14 Eosinophils # (Manual) 0.0 K/mm3 (0.0-0.4) 08/13/17 06:14 Basophils # (Manual) 0.0 K/mm3 (0.0-0.1) 08/13/17 06:14 Metamyelocytes # 0.0 K/mm3 08/13/17 06:14 Myelocytes # 0.0 K/mm3 08/13/17 06:14 Promyelocytes # 0.0 K/mm3 08/13/17 06:14 Blast Cells # 0.0 K/mm3 08/13/17 06:14 WBC Morphology Not Reportable 08/13/17 06:14 Hypersegmented Neuts Not Reportable 08/13/17 06:14 Hyposegmented Neuts Not Reportable 08/13/17 06:14 Hypogranular Neuts Not Reportable 08/13/17 06:14 Smudge Cells Not Reportable 08/13/17 06:14 Toxic Granulation Not Reportable 08/13/17 06:14 Toxic Vacuolation Not Reportable 08/13/17 06:14 Dohle Bodies Not Reportable 08/13/17 06:14 Pelger-Huet Anomaly Not Reportable 08/13/17 06:14 Ariel Rods Not Reportable 08/13/17 06:14 Platelet Estimate Not Reportable 08/13/17 06:14 Clumped Platelets Not Reportable 08/13/17 06:14 Plt Clumps, EDTA Not Reportable 08/13/17 06:14 Large Platelets Not Reportable 08/13/17 06:14 Giant Platelets Not Reportable 08/13/17 06:14 Platelet Satelliting Not Reportable 08/13/17 06:14 Plt Morphology Comment Not Reportable 08/13/17 06:14 RBC Morphology Not Reportable 08/13/17 06:14 Dimorphic RBCs Not Reportable 08/13/17 06:14 Polychromasia Not Reportable 08/13/17 06:14 Hypochromasia 1+ 08/13/17 06:14 Poikilocytosis Not Reportable 08/13/17 06:14 Anisocytosis 1+ 08/13/17 06:14 Microcytosis Not Reportable 08/13/17 06:14 Macrocytosis Not Reportable 08/13/17 06:14 Spherocytes Not Reportable 08/13/17 06:14 Pappenheimer Bodies Not Reportable 08/13/17 06:14 Sickle Cells Not Reportable 08/13/17 06:14 Target Cells 1+ 08/13/17 06:14 Tear Drop Cells Not Reportable 08/13/17 06:14 Ovalocytes Not Reportable 08/13/17 06:14 Helmet Cells Not Reportable 08/13/17 06:14 [place] Bodies Not Reportable 08/13/17 06:14 [place] Rings Not Reportable 08/13/17 06:14 [place] Cells Not Reportable 08/13/17 06:14 Bite Cells Not Reportable 08/13/17 06:14 Crenated Cell Not Reportable 08/13/17 06:14 Elliptocytes Few 08/13/17 06:14 Acanthocytes (Spur) Not Reportable 08/13/17 06:14 Rouleaux Not Reportable 08/13/17 06:14 Hemoglobin C Crystals Not Reportable 08/13/17 06:14 Schistocytes Not Reportable 08/13/17 06:14 Malaria parasites Not Reportable 08/13/17 06:14 Jovanni Bodies Not Reportable 08/13/17 06:14 Hem Pathologist Commnt No 08/13/17 06:14 PT 15.2 Sec. (12.2-14.9) H 08/12/17 05:50 INR 1.14 (0.87-1.13) H 08/12/17 05:50 APTT 35.5 Sec. (24.2-36.6) 08/12/17 05:50 POC ABG pH 7.490 (7.35-7.45) H 08/08/17 21:31 POC ABG pCO2 35.4 (35-45) 08/08/17 21:31 POC ABG pO2 122 (80-105) H 08/08/17 21:31 POC ABG HCO3 26.9 08/08/17 21:31 POC ABG Total CO2 28 08/08/17 21:31 POC ABG O2 Sat 99 08/08/17 21:31 POC ABG Base Excess 4 08/08/17 21:31 VBG pH 7.462 (7.320-7.420) H 08/08/17 14:52 FiO2 28 % 08/08/17 21:31 Sodium 138 mmol/L (137-145) 08/13/17 06:14 Potassium 3.6 mmol/L (3.6-5.0) 08/13/17 06:14 Chloride 96.2 mmol/L (98-107) L 08/13/17 06:14 Carbon Dioxide 26 mmol/L (22-30) 08/13/17 06:14 Anion Gap 19 mmol/L 08/13/17 06:14 BUN 28 mg/dL (7-17) H 08/13/17 06:14 Creatinine 5.6 mg/dL (0.7-1.2) H 08/13/17 06:14 Estimated GFR 9 ml/min 08/13/17 06:14 BUN/Creatinine Ratio 5.00 % 08/13/17 06:14 Glucose 114 mg/dL (65-100) H 08/13/17 06:14 Lactic Acid 0.70 mmol/L (0.7-2.0) 08/09/17 05:00 Calcium 8.6 mg/dL (8.4-10.2) 08/13/17 06:14 Phosphorus 3.50 mg/dL (2.5-4.5) 08/12/17 05:50 Magnesium 1.90 mg/dL (1.7-2.3) 08/12/17 05:50 Total Bilirubin 0.40 mg/dL (0.1-1.2) 08/12/17 05:50 Direct Bilirubin 0.2 mg/dL (0-0.2) 08/08/17 14:11 Indirect Bilirubin 0.3 mg/dL 08/08/17 14:11 AST 9 units/L (5-40) 08/12/17 05:50 ALT 9 units/L (7-56) 08/12/17 05:50 Alkaline Phosphatase 139 units/L (35-129) H 08/12/17 05:50 Ammonia 25.0 umol/L (25-60) 08/08/17 14:52 Troponin T 0.132 ng/mL (0.00-0.029) H* 08/09/17 13:25 C-Reactive Protein 26.10 mg/dL (0.00-1.30) H 08/12/17 16:23 NT-Pro-B Natriuret Pep 6156 pg/mL (0-900) H 08/08/17 14:11 Total Protein 5.5 g/dL (6.3-8.2) L 08/12/17 05:50 Albumin 1.7 g/dL (3.9-5) L 08/12/17 05:50 Albumin/Globulin Ratio 0.4 % 08/12/17 05:50 Triglycerides 62 mg/dL (2-149) 08/08/17 21:23 Cholesterol 91 mg/dL (50-199) 08/08/17 21:23 LDL Cholesterol Direct 53 mg/dL (50-130) 08/08/17 21:23 HDL Cholesterol 26 mg/dL (40-59) L 08/08/17 21:23 Cholesterol/HDL Ratio 3.50 % 08/08/17 21:23 TSH 6.580 mlU/mL (0.270-4.200) H 08/08/17 14:22 Free T4 1.46 ng/dL (0.76-1.46) 08/08/17 14:22 Urine Color Yellow (Yellow) 08/08/17 20:15 Urine Turbidity Turbid (Clear) 08/08/17 20:15 Urine pH 8.0 (5.0-7.0) H 08/08/17 20:15 Ur Specific [place] 1.015 (1.003-1.030) 08/08/17 20:15 Urine Protein 100 mg/dl mg/dL (Negative) 08/08/17 20:15 Urine Glucose (UA) Neg mg/dL (Negative) 08/08/17 20:15 Urine Ketones Neg mg/dL (Negative) 08/08/17 20:15 Urine Blood Mod (Negative) 08/08/17 20:15 Urine Nitrite Neg (Negative) 08/08/17 20:15 Urine Bilirubin Neg (Negative) 08/08/17 20:15 Urine Urobilinogen < 2.0 mg/dL (<2.0) 08/08/17 20:15 Ur Leukocyte Esterase Lg (Negative) 08/08/17 20:15 Urine WBC (Auto) 24.0 /HPF (0.0-6.0) H 08/08/17 20:15 Urine RBC (Auto) 3.0 /HPF (0.0-6.0) 08/08/17 20:15 U Epithel Cells (Auto) 3.0 /HPF (0-13.0) 08/08/17 20:15 Urine Bacteria (Auto) 4+ /HPF (Negative) 08/08/17 20:15 Urine Mucus 3+ /HPF 08/08/17 20:15 Fluid Type Peritoneal 08/08/17 18:18 Fluid Color Straw 08/08/17 18:18 Fluid Appearance Clear 08/08/17 18:18 Fluid pH 7.74 08/08/17 18:18 Fluid WBC 4 /mm3 08/08/17 18:18 Fluid RBC 1 /mm3 08/08/17 18:18 Fluid Seg Neutrophils 12 % 08/08/17 18:18 Fluid Lymphocytes 0 % 08/08/17 18:18 Fluid Reactive Lymphs 0 % 08/08/17 18:18 Fluid Monocytes 1 % 08/08/17 18:18 Fluid Eosinophils 0 % 08/08/17 18:18 Fluid Basophils 0 % 08/08/17 18:18 Fluid Glucose 315 mg/dL (40-70) H 08/08/17 18:18 Random Vancomycin 20.5 ug/mL (0-40.0) 08/10/17 04:45 Blood Type O POSITIVE 08/08/17 14:52 Antibody Screen Negative 08/08/17 14:52
--- NOTE | 2017-08-13 13:03 | Post Anesthesia Evaluation ---
- Post Anesthesia Evaluation Patient Participated: Yes Airway Patent: Yes Stable Respiratory Function: Yes Temp > 96.8F: Yes Pain Manageable: Yes Adequeate Hydration: Yes Anesthesia Complications: No
[2017-08-13] MEDS: MARINOL PO SCH ×2 (13:41→22:26)
--- NOTE | 2017-08-13 14:52 | Ultrasound Report ---
ULTRASOUND RENAL BILATERAL HISTORY: UTI, urosepsis. TECHNIQUE: transabdominal ultrasound with color Doppler interrogation. FINDINGS: The right kidney measures 7.6 x 3.8 x 4.3cm. Right renal cortex: 1.0cm. The left kidney measures 7.4 x 3.1 x 3.0cm. Left renal cortex: 0.9cm. Both kidneys are slightly atrophic with increased parenchymal echotexture consistent with chronic renal parenchymal disease. There is no evidence for cystic disease, calculus, mass or hydronephrosis. There appear to be the proximal portion of the ureteral stent is identified in both renal pelvises. The bladder is empty. IMPRESSION: Chronic renal parenchymal disease. Bilateral ureteral stents are vaguely visualized and appear to be within the renal pelvises. No hydronephrosis.
[2017-08-13] MEDS: MERREM 1,000 MG in NACL 0.9% 100 ML IV SCH (15:00)
--- NOTE | 2017-08-13 15:42 | Operative Report ---
PROCEDURE: Upper endoscopy with biopsy. PREOPERATIVE DIAGNOSIS: Dyspepsia and poor p.o. intake. 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 Also, gastric stasis this with lots of fluid noted in pouch, refluxing up into esophagus. SEDATION: MAC by Anesthesia. DESCRIPTION OF PROCEDURE: Indications, risks and benefits were explained and consent was obtained from the patient and her . The patient was placed back on exam table as she could not roll. She was sedated. INXPO video upper scope was passed through the mouth and oropharynx into the descending duodenum. Scope was then gradually withdrawn with close inspection of mucosa. FINDINGS: 1. Ulcerative esophagitis involving the whole esophagus with white fibrinous based ulcers that were shallow. There was a water fluid in the esophagus, which was aspirated out. Biopsies were obtained distally of the erosions and ulcers. 2. Gastric pouch with staple noted at 47 cm from the incisors. The Z line was located at 37 cm from the incisors. The gastric pouch had a hernia in the superior aspect suggestive of a paraesophageal hernia. There was a mucosal bridge across that pouch with a small ulcer measuring 8 mm with white fibrinous base and shallow along the rim of the pouch. There were no stigmata of bleeding. Remainder of pouch mucosa was normal. 3. Portal through the stapled area was patent with mild resistance to scope passage. 4. Remainder of gastric mucosa and lumen in the distal body and antrum were normal appearing. 5. Small duodenal bulb erosion with no stigmata of bleeding. Remainder of duodenum was normal appearing. The patient tolerated the procedure well without immediate complications. IMPRESSION: 1. Ulcerative esophagitis -- biopsied. Likely due to stasis. 2. Gastric stapling with pouch with stasis and lots of residual fluid that was aspirated out. This fluid was refluxing into the esophagus. 3. Hernia in gastric pouch consistent with probable paraesophageal hernia or diaphragmatic hernia. This can be further evaluated with CT as outpatient. 4. Small duodenal bulb erosion. PLAN: 1. B.i.d. proton pump inhibitors. 2. Keep head of bed elevated at 45 degrees at all times. 3. Small frequent meals. 4. It is unclear whether these anatomical findings are responsible for any of her symptomatology. Her poor p.o. intake appears to be related to inanition and lack of desire to eat. This would be better addressed by addressing her sepsis and other problems. If she fails to improve, surgical management would be warranted to fix her anatomy. JOB# [id number] HRC/NTS
--- NOTE | 2017-08-13 17:59 | Event Note ---
Date: 08/13/17 review CTAP (08-08-17) - report states bilat stents renal us (today) -- no hydro, suggestive in bilat stents [address]----needed assistance with legs for placement A/P retention will coordinate stent exchange soon
[2017-08-13] MEDS ORDERED: PROCRIT SUB-Q ONE (18:19)
[2017-08-13] MEDS: ZOFRAN IV PRN (19:52)
[2017-08-13] MEDS: PROTONIX IV SCH (21:43)
--- NOTE | 2017-08-13 23:06 | Consultation ---
History of Present Illness - Reason for Consult Consult date: 08/13/17 - History of Present Illness Patient seen,resting in bed.urology notes reviewed.labs reviewed. Past History Past Medical History: arthritis, ESRD, heart failure, hypertension, other ( chronic Pain, Obesity) Past Surgical History: cholecystectomy, total knee replacement, Other (Neck surgery) Social history: , lives with family. denies: smoking, alcohol abuse, prescription drug abuse, IV drug use Family history: CAD, hypertension Medications and Allergies Allergies Allergy/AdvReac Type Severity Reaction Status Date / Time Penicillins Allergy Shortness Verified 09/07/13 07:21 of Breath Home Medications Medication Instructions Recorded Confirmed Last Taken Type Cyclobenzaprine [Flexeril 10 MG 10 mg PO BID 09/07/13 08/09/17 07/29/17 History TAB] HYDROcodone/ACETAMINOPHEN 1 tab PO BID PRN 09/07/13 08/09/17 07/30/17 History [Hydrocodone-Acetaminophnen(Nf) 10/500 mg Tab] buPROPion [Wellbutrin] 150 mg PO DAILY 07/06/14 08/09/17 1 Week Ago History Calcitriol [Rocaltrol] 1 mcg PO QDAY 08/09/17 08/09/17 07/30/17 History FLUoxetine [PROzac] 40 mg PO QDAY 08/09/17 08/09/17 1 Week Ago History Pantoprazole [Protonix] 40 mg PO QDAY 08/09/17 08/09/17 07/30/17 History Potassium Chloride 40 meq PO BID 08/09/17 08/09/17 07/30/17 History Kori-Milka Rx Tablet 1 mg PO 4XD 08/09/17 08/09/17 08/09/17 15:58 History Active Meds: Active Medications Al Hydrox/Mg Hydrox/Simethicone (Alum-Mag Hydrox-Simeth [id number]/5ml) 15 ml PO Q4H PRN PRN Reason: Indigestion Last Admin: 08/09/17 23:37 Dose: 15 ml Dronabinol (Marinol) 5 mg PO BID GLORIA Last Admin: 08/13/17 22:26 Dose: 5 mg Hydrophilic Ointment (Vaseline Lip Therapy) 1 applic TP DIRECT PRN PRN Reason: DRY LIPS Sodium Chloride (Nacl 0.9% 1000 Ml) 1,000 mls @ 50 mls/hr IV DIRECT GLORIA Meropenem 1,000 mg/ Sodium (Chloride) 100 mls @ 100 mls/hr IV Q24H [facility] Last Admin: 08/13/17 15:00 Dose: 100 mls/hr Lactulose (Cephulac) 20 gm PO Q6HR [facility] Last Admin: 08/13/17 19:18 Dose: 20 gm Midodrine (Proamatine) 5 mg PO TID [facility] Last Admin: 08/13/17 21:42 Dose: 5 mg Morphine Sulfate (Morphine) 1 mg IV Q4H PRN PRN Reason: Pain, Moderate (4-6) Last Admin: 08/13/17 19:52 Dose: 1 mg Ondansetron HCl (Zofran) 4 mg IV Q6H PRN PRN Reason: Nausea And Vomiting Last Admin: 08/13/17 19:52 Dose: 4 mg Pantoprazole Sodium (Protonix) 40 mg IV BID [facility] Last Admin: 08/13/17 21:43 Dose: 40 mg Peritoneal Dialysis Solution (Dianeal Pd-2 W/1.5% Dextrose) 2,000 ml IP Q6H [facility] Last Admin: 08/13/17 22:02 Dose: 2,000 ml Zolpidem Tartrate (Ambien) 5 mg PO QHS PRN PRN Reason: Sleep Last Admin: 08/09/17 23:37 Dose: 5 mg Review of Systems Breasts: deferred Exam - Constitutional Vitals: Temp Pulse Resp BP Pulse Ox 98.0 F 102 H 18 99/68 97 08/13/17 20:00 08/13/17 20:00 08/13/17 20:00 08/13/17 20:00 08/13/17 20:00 General appearance: Present: mild distress, well-nourished - EENT Eyes: Present: PERRL ENT: hearing intact, clear oral mucosa - Neck Neck: Present: supple, normal ROM - Respiratory Respiratory effort: normal Respiratory: bilateral: CTA - Cardiovascular Heart Sounds: Present: S1 & S2. Absent: rub, click - Extremities Extremities: pulses symmetrical, No edema Peripheral Pulses: within normal limits - Abdominal General gastrointestinal: Present: soft, non-tender, non-distended, normal bowel sounds Female genitourinary: Present: deferred - Rectal Rectal Exam: deferred - Integumentary Integumentary: Present: clear, warm, dry - Musculoskeletal Musculoskeletal: gait normal, strength equal bilaterally - Psychiatric Psychiatric: appropriate mood/affect, intact judgment & insight - Neurologic Neurologic: CNII-XII intact, moves all extremities Results - Labs CBC & Chem 7: 08/13/17 06:14 08/13/17 06:14 Labs: Abnormal lab results 08/13/17 08/13/17 08/13/17 Range/Units 06:14 06:14 16:39 WBC 21.8 H (4.5-11.0) K/mm3 RBC 3.11 L (3.65-5.03) M/mm3 Hgb 9.4 L (10.1-14.3) gm/dl Hct 28.2 L (30.3-42.9) % RDW 18.2 H (13.2-15.2) % Plt Count 492 H (140-440) K/mm3 Seg Neuts % (Manual) 73.0 H (40.0-70.0) % Lymphocytes % (Manual) 2.0 L (13.4-35.0) % Monocytes % (Manual) 15 H (0.0-7.3) % Seg Neutrophils # Man 15.9 H (1.8-7.7) K/mm3 Lymphocytes # (Manual) 0.4 L (1.2-5.4) K/mm3 Monocytes # (Manual) 2.4 H (0.0-0.8) K/mm3 Chloride 96.2 L (98-107) mmol/L BUN 28 H (7-17) mg/dL Creatinine 5.6 H (0.7-1.2) mg/dL Glucose 114 H (65-100) mg/dL POC Glucose 151 H (70-105) Assessment and Plan - Patient Problems (1) End-stage renal disease on peritoneal dialysis Current Visit: Yes Status: Chronic Plan to address problem: continue PD (2) Leukocytosis Current Visit: Yes Status: Acute Qualifiers: Leukocytosis type: L Plan to address problem: See notes above. make sure that PD access is clean also.
[2017-08-14] MEDS: CEPHULAC PO SCH ×4 (00:25→17:31)
[2017-08-14] MEDS: DIANEAL PD-2 W/1.5% DEXTROSE IP SCH ×4 (03:38→23:31)
[2017-08-14 07:02] LABS: BUN/Creatinine Ratio 4.5; Calcium 8.7 mg/dL (8.4-10.2); Chloride 93.3 mmol/L (98-107); Potassium 3.3 mmol/L (3.6-5.0)
[2017-08-14] MEDS ORDERED: DILAUDID IV PRN ×2 (07:24→07:36)
--- NOTE | 2017-08-14 07:25 | Anesthesia Day of Surgery ---
Anesthesia Day of Surgery - Day of Surgery Patient Examined: Yes Patient H&P Reviewed: Yes Patient is NPO: Yes
--- NOTE | 2017-08-14 07:25 | Anesthesia Consultation ---
Anesthesia Consult and Med Hx Date of service: 08/14/17 - Airway Anesthetic Teeth Evaluation: Good ROM Head & Neck: Adequate Mental/Hyoid Distance: Adequate Mallampati Class: Class II Intubation Access Assessment: Probably Good - Pulmonary Exam CTA: Yes - Cardiac Exam Cardiac Exam: RRR - Pre-Operative Health Status ASA Pre-Surgery Classification: ASA4 Proposed Anesthetic Plan: General - Pulmonary Hx Smoking: No Hx Asthma: No Hx Respiratory Symptoms: No SOB: No COPD: Yes (Hx of Acute Respiratory Failure) Hx Pneumonia: No Hx Sleep Apnea: Yes - Cardiovascular System Hx Hypertension: Yes (hypotension recently) Hx Coronary Artery Disease: No Hx Heart Attack/AMI: No Hx Angina: No Hx Percutaneous Transluminal Coronary Angioplasty (PTCA): No Hx Cardia Arrhythmia: No Hx Pacemaker: No Hx Internal Defibrillator: No Hx Valvular Heart Disease: No Hx Heart Murmur: No Hx Peripheral Vascular Disease: No - Central Nervous System Hx Neuromuscular Disorder: Yes (wheelchair bound, cannot move right leg, hypersensitivity in right hand) Hx Seizures: No CVA: No Hx Back Pain: Yes (C4-6 disc disease s/p ACDF and posterior fusion ) Hx Psychiatric Problems: No - Gastrointestinal Hx Ulcer: Yes Hx Gastroesophageal Reflux Disease: No - Endocrine Hx Renal Disease: Yes Hx End Stage Renal Disease: Yes Hx Cirrhosis: No Hx Liver Disease: No Hx Insulin Dependent Diabetes: No Hx Non-Insulin Dependent Diabetes: No Hx Thyroid Disease: No - Hematic Hx Anemia: Yes Hx Sickle Cell Disease: No - Other Systems Hx Alcohol Use: Yes (wine 2 x week) Hx Substance Use: No Hx Cancer: No Hx Obesity: Yes (MORBID, BMI > 40) - Additional Comments Anesthesia Medical History Comments: Sepsis
[2017-08-14 07:55] LABS: Hematocrit 29.5 % (30.3-42.9); Hemoglobin 9.9 gm/dl (10.1-14.3); Mean Corpuscular Volume 91 fl (79-97); Red Blood Count 3.25 M/mm3 (3.65-5.03); White Blood Count 22.1 K/mm3 (4.5-11.0)
[2017-08-14 07:56] LABS: Mean Corpuscular HGB Conc 34 % (30-34); Mean Corpuscular Hemoglobin 31 pg (28-32); Platelet Count 525 K/mm3 (140-440); Red Cell Distribution Width 17.9 % (13.2-15.2)
[2017-08-14] MEDS ORDERED: PEPCID PO NR (08:00)
[2017-08-14] MEDS ORDERED: VERSED IV NR (08:00)
[2017-08-14] MEDS ORDERED: ZOFRAN IV PRN (08:00)
[2017-08-14] MEDS ORDERED: AMIDATE IV ONE (08:05)
[2017-08-14] MEDS ORDERED: SUBLIMAZE ONE (08:06)
[2017-08-14 08:11] LABS: Anisocytosis 1+; Basophils % (Manual) 0 % (0.0-1.8); Blastocytes % (Manual) 0 %; Eosinophils % (Manual) 0 % (0.0-4.3); Hypochromasia 1+; Target Cells Few
[2017-08-14 08:12] LABS: Diff Status Complete
--- NOTE | 2017-08-14 08:17 | Progress Note ---
Assessment and Plan - Patient Problems (1) End-stage renal disease on peritoneal dialysis Current Visit: Yes Status: Chronic Plan to address problem: Continue PD with 1.5% solution manually. Monitor volume status. (2) Anemia Current Visit: No Status: Chronic Qualifiers: Anemia type: due to chronic kidney disease Iron deficiency anemia type: I Vitamin B12 deficiency anemia type: V Folate deficiency anemia type: F Bone marrow failure anemia type: B Hemolytic anemia type: H Other causes of anemia: O Chronic kidney disease stage: on chronic dialysis Qualified Code(s ): N18.6 - End stage renal disease; D63.1 - Anemia in chronic kidney disease; Z99.2 - Dependence on renal dialysis Plan to address problem: Epogen. (3) Hypotension Current Visit: Yes Status: Chronic Qualifiers: Hypotension type: H Trimester: T Plan to address problem: On Midodrine. Chronic hypotension per . (4) Leukocytosis Current Visit: Yes Status: Acute Qualifiers: Leukocytosis type: unspecified Qualified Code(s): D72.829 - Elevated white blood cell count, unspecified (5) Poor appetite Current Visit: Yes Status: Chronic Plan to address problem: Continue Marinol. Subjective Date of service: 08/14/17 Principal diagnosis: hypotension Interval history: Patient c/o poor appetite. Objective - Vital Signs Vital signs: Vital Signs - 12hr 08/13/17 08/14/17 08/14/17 22:00 00:56 06:32 Temperature 97.8 F 97.5 F L Pulse Rate 104 H 97 H 89 Respiratory 18 Rate Blood Pressure 102/60 Blood Pressure 103/59 [Left] O2 Sat by Pulse 99 Oximetry - General Appearance General appearance: well-developed, appears stated age, obese, other (no distress) EENT: ATNC, PERRL, hearing intact Neck: supple Respiratory: Present: Clear to Ascultation Cardiology: regular, S1S2, no murmurs Gastrointestinal: normoactive bowel sounds, no tenderness, obese, other (PD catheter noted) Integumentary: no rash, other (right leg dressing) Neurologic: other (right LE weakness noted) Musculoskeletal: other (trace pedal edema noted) Psychiatric: mood/affect appropriate, cooperative - Lab 08/14/17 04:00 08/15/17 09:10 Most recent lab results Calcium 8.7 mg/dL (8.4-10.2) 08/14/17 04:00 Phosphorus 3.50 mg/dL (2.5-4.5) 08/12/17 05:50 Magnesium 1.90 mg/dL (1.7-2.3) 08/12/17 05:50
[2017-08-14] MEDS ORDERED: ePHEDrine SULFATE ONE (08:24)
[2017-08-14] MEDS ORDERED: ZOFRAN ONE ×2 (08:27→10:13)
[2017-08-14] MEDS: PROAMATINE PO SCH ×4 (08:30→20:55)
--- NOTE | 2017-08-14 08:43 | Progress Note ---
Subjective Date of service: 08/14/17 Principal diagnosis: hypotension Interval history: Pt scheduled for cyst, stent exchanged this am In pre op ----blood pressure lowSBP---70-80s In the OR, pt started vomiting Discussed with Dr. Manjarrez----anesthesiologist---it is best to cancel procedure review CTAP (08-08-17) - report states bilat stents renal us (today) -- no hydro, suggestive in bilat stents [address]----needed assistance with legs for placement A/P retention will coordinate stent exchange soon pt cancelled today---discussed with Consider Cardiac eval & GI re eval before set up cysto again Objective - Constitutional Vitals: Vital Signs - 12hr 08/13/17 08/14/17 08/14/17 22:00 00:56 06:32 Temperature 97.8 F 97.5 F L Pulse Rate 104 H 97 H 89 Respiratory 18 Rate Blood Pressure 102/60 Blood Pressure 103/59 [Left] O2 Sat by Pulse 99 Oximetry - Labs CBC & Chem 7: 08/14/17 04:00 08/14/17 04:00 Labs: Abnormal lab results 08/13/17 08/14/17 08/14/17 Range/Units 16:39 04:00 04:00 WBC 22.1 H (4.5-11.0) K/mm3 RBC 3.25 L (3.65-5.03) M/mm3 Hgb 9.9 L (10.1-14.3) gm/dl Hct 29.5 L (30.3-42.9) % RDW 17.9 H (13.2-15.2) % Plt Count 525 H (140-440) K/mm3 Seg Neuts % (Manual) 74.0 H (40.0-70.0) % Lymphocytes % (Manual) 8.0 L (13.4-35.0) % Monocytes % (Manual) 12.0 H (0.0-7.3) % Seg Neutrophils # Man 16.4 H (1.8-7.7) K/mm3 Monocytes # (Manual) 2.7 H (0.0-0.8) K/mm3 Sodium 134 L (137-145) mmol/L Potassium 3.3 L (3.6-5.0) mmol/L Chloride 93.3 L (98-107) mmol/L BUN 27 H (7-17) mg/dL Creatinine 6.0 H (0.7-1.2) mg/dL Glucose 152 H (65-100) mg/dL POC Glucose 151 H (70-105)
[2017-08-14] MEDS: MORPHINE IV PRN (10:02)
[2017-08-14] MEDS: PROTONIX IV SCH ×2 (10:09→23:06)
--- NOTE | 2017-08-14 10:25 | Progress Note ---
Assessment and Plan Assessment and plan: Sepsis. Patient with worsening leukocytosis. Etiology likely secondary to complicated CAUTI. Blood and Urine cultures pending. Repeat blood culture from 08/12 thus far is negative. Continue Meropenem Urinary retention. Patient scheduled for cystoscopy and stent exchange this a.m. However, procedure canceled secondary to hypotension and intractable vomiting. Urology to coordinate stent exchange Chronic hypotension - Patient is on IV fluids, IV antibiotics - Cardiology following and echo is normal - Continue Midodrine End-stage renal disease on PD - Nephrology consult appreciated - Continue PD History of cervical surgery and postoperative wheelchair bound since then - pain control Ulcerative esophagitis/small gastric ulcer. Patient status post EGD today. Biopsy pending. UTI on the setting of Indwelling catheter, RLE wound - on Levaquin Poor oral intake - No PEG placement secondary to peritoneal dialysis. Continue Marinol for appetite stimulant. We'll also add Megace and Reglan. Leukocytosis despite on antibiotics - ID following DVT prophylaxis Disposition - Continue inpatient care, I discussed the case with [facility] on . History Interval history: No new issues overnight. Hospitalist Physical - Constitutional Vitals: Temp Pulse Resp BP Pulse Ox 98.7 F 64 20 105/63 100 08/14/17 07:30 08/14/17 07:30 08/14/17 07:30 08/14/17 07:50 08/14/17 07:30 General appearance: Present: no acute distress, well-nourished - EENT Eyes: Present: PERRL, EOM intact ENT: hearing intact, clear oral mucosa, dentition normal - Neck Neck: Present: supple, normal ROM - Respiratory Respiratory effort: normal Respiratory: bilateral: CTA - Cardiovascular Rhythm: regular Heart Sounds: Present: S1 & S2. Absent: gallop, rub - Extremities Extremities: no ischemia, No edema, Full ROM - Abdominal General gastrointestinal: soft, non-tender, non-distended, normal bowel sounds - Integumentary Integumentary: Present: clear, warm, dry - Neurologic Neurologic: CNII-XII intact, moves all extremities Results - Labs CBC & Chem 7: 08/14/17 04:00 08/14/17 04:00 Labs: Laboratory Last Values WBC 22.1 K/mm3 (4.5-11.0) H 08/14/17 04:00 RBC 3.25 M/mm3 (3.65-5.03) L 08/14/17 04:00 Hgb 9.9 gm/dl (10.1-14.3) L 08/14/17 04:00 Hct 29.5 % (30.3-42.9) L 08/14/17 04:00 MCV 91 fl (79-97) 08/14/17 04:00 MCH 31 pg (28-32) 08/14/17 04:00 MCHC 34 % (30-34) 08/14/17 04:00 RDW 17.9 % (13.2-15.2) H 08/14/17 04:00 Plt Count 525 K/mm3 (140-440) H 08/14/17 04:00 Lymph % (Auto) 7.5 % (13.4-35.0) L 08/11/17 04:00 [place] % (Auto) Floorperson 08/13/17 06:14 Eos % (Auto) 0.5 % (0.0-4.3) 08/11/17 04:00 Baso % (Auto) 0.4 % (0.0-1.8) 08/11/17 04:00 Lymph # 1.5 K/mm3 (1.2-5.4) 08/11/17 04:00 [place] # 2.8 K/mm3 (0.0-0.8) H 08/11/17 04:00 Eos # 0.1 K/mm3 (0.0-0.4) 08/11/17 04:00 Baso # 0.1 K/mm3 (0.0-0.1) 08/11/17 04:00 Add Manual Diff Complete 08/14/17 04:00 Total Counted 100 08/14/17 04:00 Seg Neutrophils % 77.0 % (40.0-70.0) H 08/11/17 04:00 Seg Neuts % (Manual) 74.0 % (40.0-70.0) H 08/14/17 04:00 Band Neutrophils % 4.0 % 08/14/17 04:00 Lymphocytes % (Manual) 8.0 % (13.4-35.0) L 08/14/17 04:00 Reactive Lymphs % (Man) 0 % 08/14/17 04:00 Monocytes % (Manual) 12.0 % (0.0-7.3) H 08/14/17 04:00 Eosinophils % (Manual) 0 % (0.0-4.3) 08/14/17 04:00 Basophils % (Manual) 0 % (0.0-1.8) 08/14/17 04:00 Metamyelocytes % 2.0 % 08/14/17 04:00 Myelocytes % 0 % 08/14/17 04:00 Promyelocytes % 0 % 08/14/17 04:00 Blast Cells % 0 % 08/14/17 04:00 Nucleated RBC % Not Reportable 08/14/17 04:00 Seg Neutrophils # 14.8 K/mm3 (1.8-7.7) H 08/11/17 04:00 Seg Neutrophils # Man 16.4 K/mm3 (1.8-7.7) H 08/14/17 04:00 Band Neutrophils # 0.9 K/mm3 08/14/17 04:00 Lymphocytes # (Manual) 1.8 K/mm3 (1.2-5.4) 08/14/17 04:00 Abs React Lymphs (Man) 0.0 K/mm3 08/14/17 04:00 Monocytes # (Manual) 2.7 K/mm3 (0.0-0.8) H 08/14/17 04:00 Eosinophils # (Manual) 0.0 K/mm3 (0.0-0.4) 08/14/17 04:00 Basophils # (Manual) 0.0 K/mm3 (0.0-0.1) 08/14/17 04:00 Metamyelocytes # 0.4 K/mm3 08/14/17 04:00 Myelocytes # 0.0 K/mm3 08/14/17 04:00 Promyelocytes # 0.0 K/mm3 08/14/17 04:00 Blast Cells # 0.0 K/mm3 08/14/17 04:00 WBC Morphology Not Reportable 08/14/17 04:00 Hypersegmented Neuts Not Reportable 08/14/17 04:00 Hyposegmented Neuts Not Reportable 08/14/17 04:00 Hypogranular Neuts Not Reportable 08/14/17 04:00 Smudge Cells Not Reportable 08/14/17 04:00 Toxic Granulation Not Reportable 08/14/17 04:00 Toxic Vacuolation Not Reportable 08/14/17 04:00 Dohle Bodies Not Reportable 08/14/17 04:00 Pelger-Huet Anomaly Not Reportable 08/14/17 04:00 Ariel Rods Not Reportable 08/14/17 04:00 Platelet Estimate Not Reportable 08/14/17 04:00 Clumped Platelets Not Reportable 08/14/17 04:00 Plt Clumps, EDTA Not Reportable 08/14/17 04:00 Large Platelets Not Reportable 08/14/17 04:00 Giant Platelets Not Reportable 08/14/17 04:00 Platelet Satelliting Not Reportable 08/14/17 04:00 Plt Morphology Comment Not Reportable 08/14/17 04:00 RBC Morphology Not Reportable 08/14/17 04:00 Dimorphic RBCs Not Reportable 08/14/17 04:00 Polychromasia Not Reportable 08/14/17 04:00 Hypochromasia 1+ 08/14/17 04:00 Poikilocytosis Not Reportable 08/14/17 04:00 Anisocytosis 1+ 08/14/17 04:00 Microcytosis Not Reportable 08/14/17 04:00 Macrocytosis Not Reportable 08/14/17 04:00 Spherocytes Not Reportable 08/14/17 04:00 Pappenheimer Bodies Not Reportable 08/14/17 04:00 Sickle Cells Not Reportable 08/14/17 04:00 Target Cells Few 08/14/17 04:00 Tear Drop Cells Not Reportable 08/14/17 04:00 Ovalocytes Not Reportable 08/14/17 04:00 Helmet Cells Not Reportable 08/14/17 04:00 Vera[place] Bodies Not Reportable 08/14/17 04:00 [place] Rings Not Reportable 08/14/17 04:00 [place] Cells Not Reportable 08/14/17 04:00 Bite Cells Not Reportable 08/14/17 04:00 Crenated Cell Not Reportable 08/14/17 04:00 Elliptocytes Not Reportable 08/14/17 04:00 Acanthocytes (Spur) Not Reportable 08/14/17 04:00 Rouleaux Not Reportable 08/14/17 04:00 Hemoglobin C Crystals Not Reportable 08/14/17 04:00 Schistocytes Not Reportable 08/14/17 04:00 Malaria parasites Not Reportable 08/14/17 04:00 Jovanni Bodies Not Reportable 08/14/17 04:00 Hem Pathologist Commnt No 08/14/17 04:00 PT 15.2 Sec. (12.2-14.9) H 08/12/17 05:50 INR 1.14 (0.87-1.13) H 08/12/17 05:50 APTT 35.5 Sec. (24.2-36.6) 08/12/17 05:50 POC ABG pH 7.490 (7.35-7.45) H 08/08/17 21:31 POC ABG pCO2 35.4 (35-45) 08/08/17 21:31 POC ABG pO2 122 (80-105) H 08/08/17 21:31 POC ABG HCO3 26.9 08/08/17 21:31 POC ABG Total CO2 28 08/08/17 21:31 POC ABG O2 Sat 99 08/08/17 21:31 POC ABG Base Excess 4 08/08/17 21:31 VBG pH 7.462 (7.320-7.420) H 08/08/17 14:52 FiO2 28 % 08/08/17 21:31 Sodium 134 mmol/L (137-145) L 08/14/17 04:00 Potassium 3.3 mmol/L (3.6-5.0) L 08/14/17 04:00 Chloride 93.3 mmol/L (98-107) L 08/14/17 04:00 Carbon Dioxide 27 mmol/L (22-30) 08/14/17 04:00 Anion Gap 17 mmol/L 08/14/17 04:00 BUN 27 mg/dL (7-17) H 08/14/17 04:00 Creatinine 6.0 mg/dL (0.7-1.2) H 08/14/17 04:00 Estimated GFR 9 ml/min 08/14/17 04:00 BUN/Creatinine Ratio 4.50 % 08/14/17 04:00 Glucose 152 mg/dL (65-100) H 08/14/17 04:00 POC Glucose 151 (70-105) H 08/13/17 16:39 Lactic Acid 0.70 mmol/L (0.7-2.0) 08/09/17 05:00 Calcium 8.7 mg/dL (8.4-10.2) 08/14/17 04:00 Phosphorus 3.50 mg/dL (2.5-4.5) 08/12/17 05:50 Magnesium 1.90 mg/dL (1.7-2.3) 08/12/17 05:50 Total Bilirubin 0.40 mg/dL (0.1-1.2) 08/12/17 05:50 Direct Bilirubin 0.2 mg/dL (0-0.2) 08/08/17 14:11 Indirect Bilirubin 0.3 mg/dL 08/08/17 14:11 AST 9 units/L (5-40) 08/12/17 05:50 ALT 9 units/L (7-56) 08/12/17 05:50 Alkaline Phosphatase 139 units/L (35-129) H 08/12/17 05:50 Ammonia 25.0 umol/L (25-60) 08/08/17 14:52 Troponin T 0.132 ng/mL (0.00-0.029) H* 08/09/17 13:25 C-Reactive Protein 26.10 mg/dL (0.00-1.30) H 08/12/17 16:23 NT-Pro-B Natriuret Pep 6156 pg/mL (0-900) H 08/08/17 14:11 Total Protein 5.5 g/dL (6.3-8.2) L 08/12/17 05:50 Albumin 1.7 g/dL (3.9-5) L 08/12/17 05:50 Albumin/Globulin Ratio 0.4 % 08/12/17 05:50 Triglycerides 62 mg/dL (2-149) 08/08/17 21:23 Cholesterol 91 mg/dL (50-199) 08/08/17 21:23 LDL Cholesterol Direct 53 mg/dL (50-130) 08/08/17 21:23 HDL Cholesterol 26 mg/dL (40-59) L 08/08/17 21:23 Cholesterol/HDL Ratio 3.50 % 08/08/17 21:23 TSH 6.580 mlU/mL (0.270-4.200) H 08/08/17 14:22 Free T4 1.46 ng/dL (0.76-1.46) 08/08/17 14:22 Urine Color Yellow (Yellow) 08/08/17 20:15 Urine Turbidity Turbid (Clear) 08/08/17 20:15 Urine pH 8.0 (5.0-7.0) H 08/08/17 20:15 Ur Specific [place] 1.015 (1.003-1.030) 08/08/17 20:15 Urine Protein 100 mg/dl mg/dL (Negative) 08/08/17 20:15 Urine Glucose (UA) Neg mg/dL (Negative) 08/08/17 20:15 Urine Ketones Neg mg/dL (Negative) 08/08/17 20:15 Urine Blood Mod (Negative) 08/08/17 20:15 Urine Nitrite Neg (Negative) 08/08/17 20:15 Urine Bilirubin Neg (Negative) 08/08/17 20:15 Urine Urobilinogen < 2.0 mg/dL (<2.0) 08/08/17 20:15 Ur Leukocyte Esterase Lg (Negative) 08/08/17 20:15 Urine WBC (Auto) 24.0 /HPF (0.0-6.0) H 08/08/17 20:15 Urine RBC (Auto) 3.0 /HPF (0.0-6.0) 08/08/17 20:15 U Epithel Cells (Auto) 3.0 /HPF (0-13.0) 08/08/17 20:15 Urine Bacteria (Auto) 4+ /HPF (Negative) 08/08/17 20:15 Urine Mucus 3+ /HPF 08/08/17 20:15 Fluid Type Peritoneal 08/08/17 18:18 Fluid Color Straw 08/08/17 18:18 Fluid Appearance Clear 08/08/17 18:18 Fluid pH 7.74 08/08/17 18:18 Fluid WBC 4 /mm3 08/08/17 18:18 Fluid RBC 1 /mm3 08/08/17 18:18 Fluid Seg Neutrophils 12 % 08/08/17 18:18 Fluid Lymphocytes 0 % 08/08/17 18:18 Fluid Reactive Lymphs 0 % 08/08/17 18:18 Fluid Monocytes 1 % 08/08/17 18:18 Fluid Eosinophils 0 % 08/08/17 18:18 Fluid Basophils 0 % 08/08/17 18:18 Fluid Glucose 315 mg/dL (40-70) H 08/08/17 18:18 Random Vancomycin 20.5 ug/mL (0-40.0) 08/10/17 04:45 Blood Type O POSITIVE 08/08/17 14:52 Antibody Screen Negative 08/08/17 14:52
[2017-08-14] MEDS ORDERED: REGLAN IV PRN (11:30)
--- NOTE | 2017-08-14 11:41 | Gastroenterology Progress Note ---
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 No acute distress. Family at bedside. Stent exchange cancelled this am due to low SBP and vomiting. Objective - Constitutional Vitals: Temp Pulse Resp BP Pulse Ox 98.7 F 64 20 105/63 100 08/14/17 07:30 08/14/17 07:30 08/14/17 07:30 08/14/17 07:50 08/14/17 07:30 General appearance: no acute distress, obese, other (drowsy) - EENT Eyes: PERRL, EOM intact ENT: hearing intact - Respiratory Respiratory: bilateral: CTA (anterior) - Cardiovascular Rhythm: regular Heart Sounds: Present: S1 & S2 - Gastrointestinal General gastrointestinal: Present: soft, tender (generalized), non-distended, normal bowel sounds - Integumentary Integumentary: Present: warm, dry - Neurologic Neurological: alert and oriented x3 - Labs CBC & Chem 7: 08/14/17 04:00 08/14/17 04:00 Labs: Laboratory Results - last 24 hr 08/13/17 08/14/17 08/14/17 16:39 04:00 04:00 WBC 22.1 H RBC 3.25 L Hgb 9.9 L Hct 29.5 L MCV 91 MCH 31 MCHC 34 RDW 17.9 H Plt Count 525 H Add Manual Diff Complete Total Counted 100 Seg Neuts % (Manual) 74.0 H Band Neutrophils % 4.0 Lymphocytes % (Manual) 8.0 L Reactive Lymphs % (Man) 0 Monocytes % (Manual) 12.0 H Eosinophils % (Manual) 0 Basophils % (Manual) 0 Metamyelocytes % 2.0 Myelocytes % 0 Promyelocytes % 0 Blast Cells % 0 Nucleated RBC % Not Reportable Seg Neutrophils # Man 16.4 H Band Neutrophils # 0.9 Lymphocytes # (Manual) 1.8 Abs React Lymphs (Man) 0.0 Monocytes # (Manual) 2.7 H Eosinophils # (Manual) 0.0 Basophils # (Manual) 0.0 Metamyelocytes # 0.4 Myelocytes # 0.0 Promyelocytes # 0.0 Blast Cells # 0.0 WBC Morphology Not Reportable Hypersegmented Neuts Not Reportable Hyposegmented Neuts Not Reportable Hypogranular Neuts Not Reportable Smudge Cells Not Reportable Toxic Granulation Not Reportable Toxic Vacuolation Not Reportable Dohle Bodies Not Reportable Pelger-Huet Anomaly Not Reportable Ariel Rods Not Reportable Platelet Estimate Not Reportable Clumped Platelets Not Reportable Plt Clumps, EDTA Not Reportable Large Platelets Not Reportable Giant Platelets Not Reportable Platelet Satelliting Not Reportable Plt Morphology Comment Not Reportable RBC Morphology Not Reportable Dimorphic RBCs Not Reportable Polychromasia Not Reportable Hypochromasia 1+ Poikilocytosis Not Reportable Anisocytosis 1+ Microcytosis Not Reportable Macrocytosis Not Reportable Spherocytes Not Reportable Pappenheimer Bodies Not Reportable Sickle Cells Not Reportable Target Cells Few Tear Drop Cells Not Reportable Ovalocytes Not Reportable Helmet Cells Not Reportable [place] Bodies Not Reportable [place] Rings Not Reportable [place] Cells Not Reportable Bite Cells Not Reportable Crenated Cell Not Reportable Elliptocytes Not Reportable Acanthocytes (Spur) Not Reportable Rouleaux Not Reportable Hemoglobin C Crystals Not Reportable Schistocytes Not Reportable Malaria parasites Not Reportable Jovanni Bodies Not Reportable Hem Pathologist Commnt No Sodium 134 L Potassium 3.3 L Chloride 93.3 L Carbon Dioxide 27 Anion Gap 17 BUN 27 H Creatinine 6.0 H Estimated GFR 9 BUN/Creatinine Ratio 4.50 Glucose 152 H POC Glucose 151 H Calcium 8.7 <DRU REED R - Last Filed: 08/15/17 12:13> Assessment and Plan TPN can be considered, but only a very temporary solution given pt's renal failure and need for volume control. Poor po intake unlikely related to anatomy , but to inanition due to other comorbidities. Objective - Constitutional Vitals: Temp Pulse Resp BP Pulse Ox 97.3 F L 104 H 22 89/60 62 L 08/15/17 04:44 08/14/17 21:00 08/15/17 04:44 08/15/17 04:44 08/14/17 16:31 - Labs CBC & Chem 7: 08/14/17 04:00 08/15/17 09:10 Labs: Laboratory Results - last 24 hr 08/13/17 08/15/17 06:14 09:10 Sodium 136 L Potassium 4.0 D Chloride 97.6 L Carbon Dioxide 24 Anion Gap 18 BUN 27 H Creatinine 5.6 H Estimated GFR 9 BUN/Creatinine Ratio 4.82 Glucose 117 H Calcium 8.6 Phosphorus 3.60 Magnesium 2.00 Total Cortisol 30.1
--- NOTE | 2017-08-14 11:57 | Progress Note ---
Assessment and Plan Assessment: 1) Sepsis: worsening leukocytosis; source complicated CA-UTI. CRP=28 2) CA-UTI: chronic ivan exchanged every 4 weeks and ureteral stents in place which are exchanged every 6 months ? urine cultures still pending should r/o MDR bacteria 3) Paraplegia 4) ESRD on PD - no evidence of peritonitis, wbc count 2. 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 5) Recent pancreatitis 6) Failure to thrive 7) Penicillin allergy-has taken keflex w/o problems Plan: -Appreciate Urology consult -continue meropenem -to the OR for stents exchange Thank you Dr Chen for your consultation, will follow up with you. Ramya Lang MD Infectious Diseases Specialist [facility] [id number] [phone] O [phone] Subjective Date of service: 08/14/17 Principal diagnosis: poor po intake Interval history: Remains sick with poor appetite, nausea and abdominal pain R>L, nausea. No fever. Microbiology: Blood cultures: 08/08 ngtd 08/12 ngtd Urine cultures: 08/08 pending Respiratory cultures: Wound cultures: Stool cultures: Other: 08/08 peritoneal flid + SECRETARY OFFICE CLERK/Diphteroids Current Antimicrobials: 08/14 meropenem Previous Antimicrobials: 08/10 levaquin Objective - Exam Narrative Exam: General appearance: Alert in NAD Eyes: anicteric sclerae, moist conjunctivae; no lid-lag; PERRLA HENT: Atraumatic; oropharynx clear Neck: Trachea midline; supple, no thyromegaly or lymphadenopathy Lungs: CTA, with normal respiratory effort and no intercostal retractions CV: RRR, no murmurs Abdomen: Soft, tender R>L Extremities: + peripheral edema + leg ulcer Skin: Normal temperature, turgor and texture; no rash, ulcers or subcutaneous nodules Psych: Appropriate affect, alert and oriented to person, place and time. Neuro: alert and oriented x 3. Moving all extermities Lines: + femoral line - Constitutional Vitals: Vital Signs Temp Pulse Resp BP Pulse Ox 98.7 F 64 20 105/63 100 08/14/17 07:30 08/14/17 07:30 08/14/17 07:30 08/14/17 07:50 08/14/17 07:30 Temperature -Last 24 Hours Temperature 98.7 F Temperature 97.5 F Temperature 97.8 F Temperature 98.0 F Temperature 97.7 F Temperature 97.6 F Temperature 98.3 F - Labs CBC & Chem 7: 08/14/17 04:00 08/14/17 04:00 Labs: Abnormal lab results 08/13/17 08/14/17 08/14/17 Range/Units 16:39 04:00 04:00 WBC 22.1 H (4.5-11.0) K/mm3 RBC 3.25 L (3.65-5.03) M/mm3 Hgb 9.9 L (10.1-14.3) gm/dl Hct 29.5 L (30.3-42.9) % RDW 17.9 H (13.2-15.2) % Plt Count 525 H (140-440) K/mm3 Seg Neuts % (Manual) 74.0 H (40.0-70.0) % Lymphocytes % (Manual) 8.0 L (13.4-35.0) % Monocytes % (Manual) 12.0 H (0.0-7.3) % Seg Neutrophils # Man 16.4 H (1.8-7.7) K/mm3 Monocytes # (Manual) 2.7 H (0.0-0.8) K/mm3 Sodium 134 L (137-145) mmol/L Potassium 3.3 L (3.6-5.0) mmol/L Chloride 93.3 L (98-107) mmol/L BUN 27 H (7-17) mg/dL Creatinine 6.0 H (0.7-1.2) mg/dL Glucose 152 H (65-100) mg/dL POC Glucose 151 H (70-105)
[2017-08-14] MEDS: MARINOL PO SCH ×2 (13:43→23:25)
[2017-08-14] MEDS: MEGACE PO SCH ×3 (13:50→23:06)
--- NOTE | 2017-08-14 16:36 | Fluoroscopy Report ---
Air contrast upper GI: History: Persistent nausea and vomiting. Findings: There was severe spasm noted at the distal esophagus near the GE junction causing marked delay in emptying of the stomach. Patient felt nauseous during study and refused to drink more barium. The study is thus limited. Delayed images reveals ingested barium and fundus of the stomach. The distal stomach and duodenum is not visualized. Impression: Limited study. Severe distal esophageal spasm.
--- NOTE | 2017-08-14 17:12 | Consultation ---
History of Present Illness - Reason for Consult Consult date: 08/14/17 - History of Present Illness Patient seen/examined, resting in bed, no new issues. Past History Past Medical History: arthritis, ESRD, heart failure, hypertension, other ( chronic Pain, Obesity) Past Surgical History: cholecystectomy, total knee replacement, Other (Neck surgery) Social history: , lives with family. denies: smoking, alcohol abuse, prescription drug abuse, IV drug use Family history: CAD, hypertension Medications and Allergies Allergies Allergy/AdvReac Type Severity Reaction Status Date / Time Penicillins Allergy Shortness Verified 09/07/13 07:21 of Breath Home Medications Medication Instructions Recorded Confirmed Last Taken Type Cyclobenzaprine [Flexeril 10 MG 10 mg PO BID 09/07/13 08/09/17 07/29/17 History TAB] HYDROcodone/ACETAMINOPHEN 1 tab PO BID PRN 09/07/13 08/09/17 07/30/17 History [Hydrocodone-Acetaminophnen(Nf) 10/500 mg Tab] buPROPion [Wellbutrin] 150 mg PO DAILY 07/06/14 08/09/17 1 Week Ago History Calcitriol [Rocaltrol] 1 mcg PO QDAY 08/09/17 08/09/17 07/30/17 History FLUoxetine [PROzac] 40 mg PO QDAY 08/09/17 08/09/17 1 Week Ago History Pantoprazole [Protonix] 40 mg PO QDAY 08/09/17 08/09/17 07/30/17 History Potassium Chloride 40 meq PO BID 08/09/17 08/09/17 07/30/17 History Kori-Milka Rx Tablet 1 mg PO 4XD 08/09/17 08/09/17 08/09/17 15:58 History Active Meds: Active Medications Al Hydrox/Mg Hydrox/Simethicone (Alum-Mag Hydrox-Simeth [phone]/5ml) 15 ml PO Q4H PRN PRN Reason: Indigestion Last Admin: 08/09/17 23:37 Dose: 15 ml Dronabinol (Marinol) 5 mg PO BID GLORIA Last Admin: 08/14/17 13:43 Dose: 5 mg Hydrophilic Ointment (Vaseline Lip Therapy) 1 applic TP DIRECT PRN PRN Reason: DRY LIPS Meropenem 1,000 mg/ Sodium (Chloride) 100 mls @ 100 mls/hr IV Q24H [facility] Last Admin: 08/13/17 15:00 Dose: 100 mls/hr Sodium Chloride (Nacl 0.9% 1000 Ml) 1,000 mls @ 75 mls/hr IV DIRECT [facility] Lactulose (Cephulac) 20 gm PO Q6HR [facility] Last Admin: 08/14/17 13:49 Dose: 20 gm Megestrol Acetate (Megace) 40 mg PO QID [facility] Last Admin: 08/14/17 13:50 Dose: 40 mg Metoclopramide HCl (Reglan) 10 mg IV Q6H PRN PRN Reason: Nausea And Vomiting Midodrine (Proamatine) 10 mg PO TID [facility] Last Admin: 08/14/17 13:52 Dose: 10 mg Morphine Sulfate (Morphine) 1 mg IV Q4H PRN PRN Reason: Pain, Moderate (4-6) Last Admin: 08/14/17 10:02 Dose: 1 mg Ondansetron HCl (Zofran) 4 mg IV Q6H PRN PRN Reason: Nausea And Vomiting Last Admin: 08/13/17 19:52 Dose: 4 mg Pantoprazole Sodium (Protonix) 40 mg IV BID [facility] Last Admin: 08/14/17 10:09 Dose: 40 mg Peritoneal Dialysis Solution (Dianeal Pd-2 W/1.5% Dextrose) 2,000 ml IP Q6H [facility] Last Admin: 08/14/17 08:30 Dose: Not Given Zolpidem Tartrate (Ambien) 5 mg PO QHS PRN PRN Reason: Sleep Last Admin: 08/09/17 23:37 Dose: 5 mg Review of Systems Constitutional: fatigue Breasts: deferred Exam - Constitutional Vitals: Temp Pulse Resp BP Pulse Ox 97.7 F 94 H 18 97/60 96 08/14/17 14:00 08/14/17 14:00 08/14/17 14:00 08/14/17 14:00 08/14/17 14:00 General appearance: Present: no acute distress, well-nourished - EENT Eyes: Present: PERRL ENT: hearing intact, clear oral mucosa - Neck Neck: Present: supple, normal ROM - Respiratory Respiratory effort: normal Respiratory: bilateral: CTA - Cardiovascular Heart Sounds: Present: S1 & S2. Absent: rub, click - Extremities Extremities: pulses symmetrical, No edema Peripheral Pulses: within normal limits - Abdominal General gastrointestinal: Present: soft, non-tender, non-distended, normal bowel sounds Female genitourinary: Present: deferred - Rectal Rectal Exam: deferred - Integumentary Integumentary: Present: clear, warm, dry - Musculoskeletal Musculoskeletal: gait normal, strength equal bilaterally - Psychiatric Psychiatric: appropriate mood/affect, intact judgment & insight - Neurologic Neurologic: CNII-XII intact, moves all extremities Results - Labs CBC & Chem 7: 08/14/17 04:00 08/14/17 04:00 Labs: Abnormal lab results 08/13/17 08/14/17 08/14/17 Range/Units 16:39 04:00 04:00 WBC 22.1 H (4.5-11.0) K/mm3 RBC 3.25 L (3.65-5.03) M/mm3 Hgb 9.9 L (10.1-14.3) gm/dl Hct 29.5 L (30.3-42.9) % RDW 17.9 H (13.2-15.2) % Plt Count 525 H (140-440) K/mm3 Seg Neuts % (Manual) 74.0 H (40.0-70.0) % Lymphocytes % (Manual) 8.0 L (13.4-35.0) % Monocytes % (Manual) 12.0 H (0.0-7.3) % Seg Neutrophils # Man 16.4 H (1.8-7.7) K/mm3 Monocytes # (Manual) 2.7 H (0.0-0.8) K/mm3 Sodium 134 L (137-145) mmol/L Potassium 3.3 L (3.6-5.0) mmol/L Chloride 93.3 L (98-107) mmol/L BUN 27 H (7-17) mg/dL Creatinine 6.0 H (0.7-1.2) mg/dL Glucose 152 H (65-100) mg/dL POC Glucose 151 H (70-105) Assessment and Plan - Patient Problems (1) End-stage renal disease on peritoneal dialysis Current Visit: Yes Status: Chronic Plan to address problem: continue PD (2) Leukocytosis Current Visit: Yes Status: Acute Qualifiers: Leukocytosis type: L Plan to address problem: See notes above. make sure that PD access is clean also.
[2017-08-14] MEDS: MERREM 1,000 MG in NACL 0.9% 100 ML IV SCH (17:26)
[2017-08-14] MEDS: NACL 0.9% 1000 ML 1,000 ML IV SCH (19:44)
[2017-08-15] MEDS: CEPHULAC PO SCH ×4 (00:30→18:19)
--- NOTE | 2017-08-15 06:05 | XRay Report ---
FINAL REPORT EXAM: XR ABD SERIES W CXR 1V HISTORY: FOLLOW UP UGI FROM YESTERDAY DELAYED FILMS TECHNIQUE: Portable AP chest radiograph, upright and supine views of the abdomen and pelvis PRIORS: CT 08/08/2017 FINDINGS: No mediastinal shift. Cardiac silhouette is not enlarged. No pneumothorax, effusion, or focal pulmonary opacity. No pneumoperitoneum. Positive enteric contrast is seen within the stomach. Multiple dilated loops of bowel within the central abdomen. Upper abdominal surgical clips and sutures. Bilateral ureteral stents. Right lower quadrant (dialysis) catheter/strain. IMPRESSION: Residual positive enteric contrast is seen only within the stomach. Multiple dilated loops of central abdominal bowel may be due to obstruction. Correlation with recent prior imaging is requested. Consider CT follow-up as warranted.
[2017-08-15] MEDS: ZOFRAN IV PRN (06:12)
--- NOTE | 2017-08-15 07:33 | Progress Note ---
Assessment and Plan - Patient Problems (1) End-stage renal disease on peritoneal dialysis Current Visit: Yes Status: Chronic Plan to address problem: Continue PD with manual exchanges Q6hrs with 1.5% solution. Patient tolerating PD well. Monitor volume status. (2) Anemia Current Visit: No Status: Chronic Qualifiers: Anemia type: due to chronic kidney disease Iron deficiency anemia type: I Vitamin B12 deficiency anemia type: V Folate deficiency anemia type: F Bone marrow failure anemia type: B Hemolytic anemia type: H Other causes of anemia: O Chronic kidney disease stage: on chronic dialysis Qualified Code(s ): N18.6 - End stage renal disease; D63.1 - Anemia in chronic kidney disease; Z99.2 - Dependence on renal dialysis Plan to address problem: Epogen. (3) Hypotension Current Visit: Yes Status: Chronic Qualifiers: Hypotension type: H Trimester: T Plan to address problem: Chronic hypotension. On Midodrine. (4) Leukocytosis Current Visit: Yes Status: Acute Qualifiers: Leukocytosis type: unspecified Qualified Code(s): D72.829 - Elevated white blood cell count, unspecified (5) Poor appetite Current Visit: Yes Status: Chronic Plan to address problem: Continue Marinol. Subjective Date of service: 08/15/17 Principal diagnosis: poor po intake Interval history: Patient continues to have poor appetite. Objective - Vital Signs Vital signs: Vital Signs - 12hr 08/14/17 08/14/17 08/14/17 19:46 19:56 21:00 Temperature 98.2 F Pulse Rate 90 104 H Respiratory 19 Rate Blood Pressure 98/42 Blood Pressure 98/42 [Left] 08/15/17 04:44 Temperature 97.3 F L Pulse Rate Respiratory 22 Rate Blood Pressure 89/60 Blood Pressure [Left] - General Appearance General appearance: well-developed, appears stated age, obese, other (no distress) EENT: ATNC, PERRL, hearing intact Neck: supple Respiratory: Present: Clear to Ascultation Cardiology: regular, S1S2, no murmurs Gastrointestinal: normoactive bowel sounds, no tenderness, obese, other (PD catheter noted) Integumentary: no rash, ulcer (right leg) Neurologic: other (right LE weakness) Musculoskeletal: other (trace pedal edema bilaterally) Psychiatric: mood/affect appropriate, cooperative - Lab 08/14/17 04:00 08/15/17 09:10 Most recent lab results Calcium 8.7 mg/dL (8.4-10.2) 08/14/17 04:00 Phosphorus 3.50 mg/dL (2.5-4.5) 08/12/17 05:50 Magnesium 1.90 mg/dL (1.7-2.3) 08/12/17 05:50
[2017-08-15] MEDS: DIANEAL PD-2 W/1.5% DEXTROSE IP SCH ×3 (07:35→18:17)
[2017-08-15] MEDS ORDERED: ALBURX 25% (ALBUMIN) IV NR (08:00)
--- NOTE | 2017-08-15 09:20 | Consultation ---
History of Present Illness Consult date: 08/15/17 Reason for consult: other (hx of possible bariatric surgery) - History of present illness History of present illness: 62 y.o. F admitted to the hospital 08/08/17 for hypotension and lethargy. Since admission she had perfuse vomiting and nausea. EGD by GI showed a surgically altered stomach with possible "gastric hernia." Bariatric surgery consulted to evaluate patient due to vomiting and possible hx of bariatric surgery. Currently patient has upper abdominal pain on the right and left. She last vomited last night. She denies currently feeling nausea. Per pt and her last bm was 08/06. Per she usually has a bm every 1-2 days. She denies passing flatus or having a bm. She admits to burping often and feeling pressure on her upper abdomen. Pt is a poor historian. Per , she had "stomach stapling" for bariatric surgery over 30 years ago in [place]. Starting 4 months ago she started to have nausea and vomiting. She was able to eat food and take medications with infrequent vomiting. However as time progressed she started to vomiting approx 20-30min after eating or taking medication. She does not vomit unless he eats or drinks. He denies bilious vomiting. Pt stopped taking her medication at home because it would cause her vomit. Denies use of NSAIDS. Past History Past Medical History: arthritis, ESRD, heart failure, hypertension, other ( chronic Pain, Obesity, hx of hypotension) Past Surgical History: cholecystectomy, total knee replacement, Other (Neck surgery, Gastric surgery-1980s possible bariatric ) Social history: , lives with family, other (wheelchair bound. at home able to be mobile in her wheelchair ). denies: smoking, alcohol abuse, prescription drug abuse, IV drug use Family history: CAD, hypertension Medications and Allergies Allergies Allergy/AdvReac Type Severity Reaction Status Date / Time Penicillins Allergy Shortness Verified 09/07/13 07:21 of Breath Home Medications Medication Instructions Recorded Confirmed Last Taken Type Cyclobenzaprine [Flexeril 10 MG 10 mg PO BID 09/07/13 08/09/17 07/29/17 History TAB] HYDROcodone/ACETAMINOPHEN 1 tab PO BID PRN 09/07/13 08/09/17 07/30/17 History [Hydrocodone-Acetaminophnen(Nf) 10/500 mg Tab] buPROPion [Wellbutrin] 150 mg PO DAILY 07/06/14 08/09/17 1 Week Ago History Calcitriol [Rocaltrol] 1 mcg PO QDAY 08/09/17 08/09/17 07/30/17 History FLUoxetine [PROzac] 40 mg PO QDAY 08/09/17 08/09/17 1 Week Ago History Pantoprazole [Protonix] 40 mg PO QDAY 08/09/17 08/09/17 07/30/17 History Potassium Chloride 40 meq PO BID 08/09/17 08/09/17 07/30/17 History Kori-Milka Rx Tablet 1 mg PO 4XD 08/09/17 08/09/17 08/09/17 15:58 History Active Meds: Active Medications Al Hydrox/Mg Hydrox/Simethicone (Alum-Mag Hydrox-Simeth [id number]/5ml) 15 ml PO Q4H PRN PRN Reason: Indigestion Last Admin: 08/09/17 23:37 Dose: 15 ml Albumin Human (Alburx 25% (Albumin)) 25 gm IV ONCE NR Stop: 08/15/17 14:00 Dronabinol (Marinol) 5 mg PO BID [facility] Last Admin: 08/14/17 23:25 Dose: 5 mg Hydrophilic Ointment (Vaseline Lip Therapy) 1 applic TP DIRECT PRN PRN Reason: DRY LIPS Meropenem 1,000 mg/ Sodium (Chloride) 100 mls @ 100 mls/hr IV Q24H [facility] Last Admin: 08/14/17 17:26 Dose: 100 mls/hr Sodium Chloride (Nacl 0.9% 1000 Ml) 1,000 mls @ 75 mls/hr IV DIRECT [facility] Last Admin: 08/14/17 19:44 Dose: 75 mls/hr Lactulose (Cephulac) 20 gm PO Q6HR [facility] Last Admin: 08/15/17 06:39 Dose: Not Given Megestrol Acetate (Megace) 40 mg PO QID [facility] Last Admin: 08/14/17 23:06 Dose: 40 mg Metoclopramide HCl (Reglan) 10 mg IV Q6H PRN PRN Reason: Nausea And Vomiting Midodrine (Proamatine) 10 mg PO TID [facility] Last Admin: 08/14/17 20:55 Dose: 10 mg Morphine Sulfate (Morphine) 1 mg IV Q4H PRN PRN Reason: Pain, Moderate (4-6) Last Admin: 08/14/17 10:02 Dose: 1 mg Ondansetron HCl (Zofran) 4 mg IV Q6H PRN PRN Reason: Nausea And Vomiting Last Admin: 08/15/17 06:12 Dose: 4 mg Pantoprazole Sodium (Protonix) 40 mg IV BID [facility] Last Admin: 08/14/17 23:06 Dose: 40 mg Peritoneal Dialysis Solution (Dianeal Pd-2 W/1.5% Dextrose) 2,000 ml IP Q6H [facility] Last Admin: 08/15/17 07:35 Dose: Not Given Zolpidem Tartrate (Ambien) 5 mg PO QHS PRN PRN Reason: Sleep Last Admin: 08/09/17 23:37 Dose: 5 mg Review of Systems ROS unobtainable: due to mental status (Pt is a poor historian and unble to answer questions ) Exam Vital Signs Pulse Resp BP Pulse Ox 80 18 66/41 98 08/08/17 13:00 08/08/17 13:00 08/08/17 13:00 08/08/17 13:00 - General physical appearance Positive: no distress - Eyes Positive: PERRL - Neck Positive: no masses - Respiratory Positive: normal expansion, normal respiratory effort - Cardiovascular Rhythm: regular - Extremities Extremities: no ischemia Extremity abnormal: other (RLE: wound dressed- 2 ulcers on her lateral lower leg - 3x2cm, clean base without discharge. granulation tissue ) - Abdomen Abdomen: Present: soft, other (soft, obese, +BS, HD catheter Left abd. no drainage or erythema. tender epigastric and LUQ and RUQ tender. no reboudn no guarding. Fullness upper abd bl. midline incision healed ) Hernia: none - Genitourinary Female Genitourinary: other (+ivan) - Rectum Rectum: normal spincter tone, other (small amount of stool in vault- removed. no lesions ) - Neurologic Neurologic: other (awake an confused, slow speech) Results - Labs 08/14/17 04:00 08/15/17 09:10 - Imaging Abdominal x-ray: image reviewed CT scan - abdomen: image reviewed Assessment and Plan 62 y.o. F with hx of bariatric surgery, multiple co-morbidities: EGD imaging and barium swallow reviewed. Pt most likely had an open vertical sleeve in the past. Delayed XR imaging shows retained barium in the stomach. It appears the patient as a gastric pouch that is retaining fluid that is causing her to vomit. Her stomach to duodenum is patent as shown in the EGD-the scope was able to reach the pylorus. The retained barium seen in the following up imaging could be a gastric dilation that is not emptying into the rest of her stomach. Barium swallow completed at [facility] (jun 2017) [facility] showed retained barium tablet in the lower esophagus but study did not give any other information regarding her stomach. -Will discuss case with IR- possible decompression of dilated pouch area. The goals of care should be to improve nutrition on this visit and control her symptoms. currently the patient is nutritionally depleted and would not heal and do well with any type of surgery at this time/hospital visit. The xr imaging from today also shows possible ileus as she has dilated small bowel. Would rec against any entereal feeds until this resolves/she has a bm. -correct electrolytes for ileus Nutrition: -No Enteral feeds until bm. Rec TPN. Once her bowel function improves, rec. NG feeds- placement via IR or endoscopy to ensure the tube is passed pylorus and not in dilated area. Gastric Ulcers: rec PPI, carafate. Avoid NSAIDs. Further recs to follow as more info becomes avail. - Patient Problems (1) Vomiting Current Visit: Yes Status: Acute Qualifiers: Vomiting type: V Vomiting Intractability: V Nausea presence: N
[2017-08-15 09:53] LABS: BUN/Creatinine Ratio 4.82; Calcium 8.6 mg/dL (8.4-10.2); Chloride 97.6 mmol/L (98-107); Phosphorous 3.6 mg/dL (2.5-4.5)
--- NOTE | 2017-08-15 10:10 | Progress Note ---
Assessment and Plan Assessment: 1) Sepsis: worsening leukocytosis; source complicated CA-UTI. CRP=28 2) CA-UTI: chronic ivan exchanged every 4 weeks and ureteral stents in place which are exchanged every 6 months ? urine cultures still pending should r/o MDR bacteria 3) Paraplegia 4) ESRD on PD - no evidence of peritonitis, wbc count 2. 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 5) Recent pancreatitis 6) Failure to thrive 7) Penicillin allergy-has taken keflex w/o problems Plan: -continue meropenem day 3 -to the OR for stents exchange after pulm/cards eval -f/u leukocytosis Thank you Dr Chen for your consultation, will follow up with you. Ramya Lang MD Infectious Diseases Specialist [facility] M [phone] O [phone] Subjective Date of service: 08/15/17 Principal diagnosis: poor po intake Interval history: Remains debilitated with poor appetite, abdominal pain R>L some better, nausea. No fever. Microbiology: Blood cultures: 08/08 ngtd 08/12 ngtd Urine cultures: 08/08 pending Respiratory cultures: Wound cultures: Stool cultures: Other: 08/08 peritoneal fluid + PROTECTION ANALYST/Diphteroids Current Antimicrobials: 08/13 meropenem Previous Antimicrobials: 08/10 levaquin Objective - Exam Narrative Exam: General appearance: Alert in NAD Eyes: anicteric sclerae, moist conjunctivae; no lid-lag; PERRLA HENT: Atraumatic; oropharynx clear Neck: Trachea midline; supple, no thyromegaly or lymphadenopathy Lungs: CTA, with normal respiratory effort and no intercostal retractions CV: RRR, no murmurs Abdomen: Soft, tender R>L Extremities: + peripheral edema + leg ulcer Skin: Normal temperature, turgor and texture; no rash, ulcers or subcutaneous nodules Psych: Appropriate affect, alert and oriented to person, place and time. Neuro: alert and oriented x 3. Moving all extermities Lines: + femoral line - Constitutional Vitals: Vital Signs Temp Pulse Resp BP Pulse Ox 97.3 F L 104 H 22 89/60 62 L 08/15/17 04:44 08/14/17 21:00 08/15/17 04:44 08/15/17 04:44 08/14/17 16:31 Temperature -Last 24 Hours Temperature 97.3 F Temperature 98.2 F Temperature 97.7 F Temperature 97.7 F Temperature 97.8 F - Labs CBC & Chem 7: 08/14/17 04:00 08/15/17 09:10 Labs: Abnormal lab results 08/15/17 Range/Units 09:10 Sodium 136 L (137-145) mmol/L Chloride 97.6 L (98-107) mmol/L BUN 27 H (7-17) mg/dL Creatinine 5.6 H (0.7-1.2) mg/dL Glucose 117 H (65-100) mg/dL
[2017-08-15] MEDS: PROTONIX IV SCH ×2 (10:30→21:50)
[2017-08-15] MEDS: MEGACE PO SCH ×4 (10:31→21:50)
[2017-08-15] MEDS: PROAMATINE PO SCH ×3 (10:33→21:49)
[2017-08-15] MEDS: MORPHINE IV PRN ×2 (11:27→18:51)
--- NOTE | 2017-08-15 12:10 | Progress Note ---
Assessment and Plan Assessment and plan: Sepsis. Patient with worsening leukocytosis. Etiology likely secondary to complicated CAUTI. Blood and Urine cultures pending. Repeat blood culture from 08/12 thus far is negative. Continue Meropenem Urinary retention/ ? Infected stents. Urology to coordinate stent exchange. Neurology request cardiology clearance prior to procedure. Ileus. ?Delayed gastric emptying. Patient noted to have severe distal esophageal spasm upper GI study. Also, it appears the patient has a gastric pouch that is retaining fluid that is causing her to vomit. GI and surgery following. Continue Reglan scheduled. Chronic hypotension - Patient is on IV fluids, IV antibiotics - Cardiology following and echo is normal - Continue Midodrine End-stage renal disease on PD - Patient may need to be converted to hemodialysis for possible J-tube placement. - Continue PD for now History of cervical surgery and postoperative wheelchair bound since then - pain control Ulcerative esophagitis/small gastric ulcer. Patient status post EGD today. Biopsy pending. UTI on the setting of Indwelling catheter, RLE wound - on Levaquin Poor oral intake - No PEG placement secondary to peritoneal dialysis. Continue Marinol for appetite stimulant. We'll also add Megace and Reglan. Leukocytosis. - ID following -Follow up CBC. DVT prophylaxis Disposition - Continue inpatient care, I discussed the case with [facility] on . History Interval history: No new issues overnight. Hospitalist Physical - Constitutional Vitals: Temp Pulse Resp BP Pulse Ox 97.3 F L 104 H 22 89/60 62 L 08/15/17 04:44 08/14/17 21:00 08/15/17 04:44 08/15/17 04:44 08/14/17 16:31 General appearance: Present: no acute distress, well-nourished - EENT Eyes: Present: PERRL, EOM intact ENT: hearing intact, clear oral mucosa, dentition normal - Neck Neck: Present: supple, normal ROM - Respiratory Respiratory effort: normal Respiratory: bilateral: CTA - Cardiovascular Rhythm: regular Heart Sounds: Present: S1 & S2. Absent: gallop, rub - Extremities Extremities: no ischemia, No edema, Full ROM - Abdominal General gastrointestinal: soft, non-tender, non-distended, normal bowel sounds - Integumentary Integumentary: Present: clear, warm, dry - Neurologic Neurologic: CNII-XII intact, moves all extremities Results - Labs CBC & Chem 7: 08/14/17 04:00 08/15/17 09:10 Labs: Laboratory Last Values WBC 22.1 K/mm3 (4.5-11.0) H 08/14/17 04:00 RBC 3.25 M/mm3 (3.65-5.03) L 08/14/17 04:00 Hgb 9.9 gm/dl (10.1-14.3) L 08/14/17 04:00 Hct 29.5 % (30.3-42.9) L 08/14/17 04:00 MCV 91 fl (79-97) 08/14/17 04:00 MCH 31 pg (28-32) 08/14/17 04:00 MCHC 34 % (30-34) 08/14/17 04:00 RDW 17.9 % (13.2-15.2) H 08/14/17 04:00 Plt Count 525 K/mm3 (140-440) H 08/14/17 04:00 Lymph % (Auto) 7.5 % (13.4-35.0) L 08/11/17 04:00 Tompkins % (Auto) Account Support Manager 08/13/17 06:14 Eos % (Auto) 0.5 % (0.0-4.3) 08/11/17 04:00 Baso % (Auto) 0.4 % (0.0-1.8) 08/11/17 04:00 Lymph # 1.5 K/mm3 (1.2-5.4) 08/11/17 04:00 Tompkins # 2.8 K/mm3 (0.0-0.8) H 08/11/17 04:00 Eos # 0.1 K/mm3 (0.0-0.4) 08/11/17 04:00 Baso # 0.1 K/mm3 (0.0-0.1) 08/11/17 04:00 Add Manual Diff Complete 08/14/17 04:00 Total Counted 100 08/14/17 04:00 Seg Neutrophils % 77.0 % (40.0-70.0) H 08/11/17 04:00 Seg Neuts % (Manual) 74.0 % (40.0-70.0) H 08/14/17 04:00 Band Neutrophils % 4.0 % 09/20/17 04:00 Lymphocytes % (Manual) 8.0 % (13.4-35.0) L 08/14/17 04:00 Reactive Lymphs % (Man) 0 % 08/14/17 04:00 Monocytes % (Manual) 12.0 % (0.0-7.3) H 08/14/17 04:00 Eosinophils % (Manual) 0 % (0.0-4.3) 08/14/17 04:00 Basophils % (Manual) 0 % (0.0-1.8) 08/14/17 04:00 Metamyelocytes % 2.0 % 08/14/17 04:00 Myelocytes % 0 % 08/14/17 04:00 Promyelocytes % 0 % 08/14/17 04:00 Blast Cells % 0 % 08/14/17 04:00 Nucleated RBC % Not Reportable 08/14/17 04:00 Seg Neutrophils # 14.8 K/mm3 (1.8-7.7) H 08/11/17 04:00 Seg Neutrophils # Man 16.4 K/mm3 (1.8-7.7) H 08/14/17 04:00 Band Neutrophils # 0.9 K/mm3 08/14/17 04:00 Lymphocytes # (Manual) 1.8 K/mm3 (1.2-5.4) 08/14/17 04:00 Abs React Lymphs (Man) 0.0 K/mm3 08/14/17 04:00 Monocytes # (Manual) 2.7 K/mm3 (0.0-0.8) H 08/14/17 04:00 Eosinophils # (Manual) 0.0 K/mm3 (0.0-0.4) 08/14/17 04:00 Basophils # (Manual) 0.0 K/mm3 (0.0-0.1) 08/14/17 04:00 Metamyelocytes # 0.4 K/mm3 08/14/17 04:00 Myelocytes # 0.0 K/mm3 08/14/17 04:00 Promyelocytes # 0.0 K/mm3 08/14/17 04:00 Blast Cells # 0.0 K/mm3 08/14/17 04:00 WBC Morphology Not Reportable 08/14/17 04:00 Hypersegmented Neuts Not Reportable 08/14/17 04:00 Hyposegmented Neuts Not Reportable 08/14/17 04:00 Hypogranular Neuts Not Reportable 08/14/17 04:00 Smudge Cells Not Reportable 08/14/17 04:00 Toxic Granulation Not Reportable 08/14/17 04:00 Toxic Vacuolation Not Reportable 08/14/17 04:00 Dohle Bodies Not Reportable 08/14/17 04:00 Pelger-Huet Anomaly Not Reportable 08/14/17 04:00 Ariel Rods Not Reportable 08/14/17 04:00 Platelet Estimate Not Reportable 08/14/17 04:00 Clumped Platelets Not Reportable 08/14/17 04:00 Plt Clumps, EDTA Not Reportable 08/14/17 04:00 Large Platelets Not Reportable 08/14/17 04:00 Giant Platelets Not Reportable 08/14/17 04:00 Platelet Satelliting Not Reportable 08/14/17 04:00 Plt Morphology Comment Not Reportable 08/14/17 04:00 RBC Morphology Not Reportable 08/14/17 04:00 Dimorphic RBCs Not Reportable 08/14/17 04:00 Polychromasia Not Reportable 08/14/17 04:00 Hypochromasia 1+ 08/14/17 04:00 Poikilocytosis Not Reportable 08/14/17 04:00 Anisocytosis 1+ 08/14/17 04:00 Microcytosis Not Reportable 08/14/17 04:00 Macrocytosis Not Reportable 08/14/17 04:00 Spherocytes Not Reportable 08/14/17 04:00 Pappenheimer Bodies Not Reportable 08/14/17 04:00 Sickle Cells Not Reportable 08/14/17 04:00 Target Cells Few 08/14/17 04:00 Tear Drop Cells Not Reportable 08/14/17 04:00 Ovalocytes Not Reportable 08/14/17 04:00 Helmet Cells Not Reportable 08/14/17 04:00 Vera-[place] Bodies Not Reportable 08/14/17 04:00 Castile Rings Not Reportable 08/14/17 04:00 [place] Cells Not Reportable 08/14/17 04:00 Bite Cells Not Reportable 08/14/17 04:00 Crenated Cell Not Reportable 08/14/17 04:00 Elliptocytes Not Reportable 08/14/17 04:00 Acanthocytes (Spur) Not Reportable 08/14/17 04:00 Rouleaux Not Reportable 08/14/17 04:00 Hemoglobin C Crystals Not Reportable 08/14/17 04:00 Schistocytes Not Reportable 08/14/17 04:00 Malaria parasites Not Reportable 08/14/17 04:00 Jovanni Bodies Not Reportable 08/14/17 04:00 Hem Pathologist Commnt No 08/14/17 04:00 PT 15.2 Sec. (12.2-14.9) H 08/12/17 05:50 INR 1.14 (0.87-1.13) H 08/12/17 05:50 APTT 35.5 Sec. (24.2-36.6) 08/12/17 05:50 POC ABG pH 7.490 (7.35-7.45) H 08/08/17 21:31 POC ABG pCO2 35.4 (35-45) 08/08/17 21:31 POC ABG pO2 122 (80-105) H 08/08/17 21:31 POC ABG HCO3 26.9 08/08/17 21:31 POC ABG Total CO2 28 08/08/17 21:31 POC ABG O2 Sat 99 08/08/17 21:31 POC ABG Base Excess 4 08/08/17 21:31 VBG pH 7.462 (7.320-7.420) H 08/08/17 14:52 FiO2 28 % 08/08/17 21:31 Sodium 136 mmol/L (137-145) L 08/15/17 09:10 Potassium 4.0 mmol/L (3.6-5.0) D 08/15/17 09:10 Chloride 97.6 mmol/L (98-107) L 08/15/17 09:10 Carbon Dioxide 24 mmol/L (22-30) 08/15/17 09:10 Anion Gap 18 mmol/L 08/15/17 09:10 BUN 27 mg/dL (7-17) H 08/15/17 09:10 Creatinine 5.6 mg/dL (0.7-1.2) H 08/15/17 09:10 Estimated GFR 9 ml/min 08/15/17 09:10 BUN/Creatinine Ratio 4.82 % 08/15/17 09:10 Glucose 117 mg/dL (65-100) H 08/15/17 09:10 POC Glucose 151 (70-105) H 08/13/17 16:39 Lactic Acid 0.70 mmol/L (0.7-2.0) 08/09/17 05:00 Calcium 8.6 mg/dL (8.4-10.2) 08/15/17 09:10 Phosphorus 3.60 mg/dL (2.5-4.5) 08/15/17 09:10 Magnesium 2.00 mg/dL (1.7-2.3) 08/15/17 09:10 Total Bilirubin 0.40 mg/dL (0.1-1.2) 08/12/17 05:50 Direct Bilirubin 0.2 mg/dL (0-0.2) 08/08/17 14:11 Indirect Bilirubin 0.3 mg/dL 08/08/17 14:11 AST 9 units/L (5-40) 08/12/17 05:50 ALT 9 units/L (7-56) 08/12/17 05:50 Alkaline Phosphatase 139 units/L (35-129) H 08/12/17 05:50 Ammonia 25.0 umol/L (25-60) 08/08/17 14:52 Troponin T 0.132 ng/mL (0.00-0.029) H* 08/09/17 13:25 C-Reactive Protein 26.10 mg/dL (0.00-1.30) H 08/12/17 16:23 NT-Pro-B Natriuret Pep 6156 pg/mL (0-900) H 08/08/17 14:11 Total Protein 5.5 g/dL (6.3-8.2) L 08/12/17 05:50 Albumin 1.7 g/dL (3.9-5) L 08/12/17 05:50 Albumin/Globulin Ratio 0.4 % 08/12/17 05:50 Triglycerides 62 mg/dL (2-149) 08/08/17 21:23 Cholesterol 91 mg/dL (50-199) 08/08/17 21:23 LDL Cholesterol Direct 53 mg/dL (50-130) 08/08/17 21:23 HDL Cholesterol 26 mg/dL (40-59) L 08/08/17 21:23 Cholesterol/HDL Ratio 3.50 % 08/08/17 21:23 TSH 6.580 mlU/mL (0.270-4.200) H 08/08/17 14:22 Free T4 1.46 ng/dL (0.76-1.46) 08/08/17 14:22 Total Cortisol 30.1 mcg/dL () 08/13/17 06:14 Urine Color Yellow (Yellow) 08/08/17 20:15 Urine Turbidity Turbid (Clear) 08/08/17 20:15 Urine pH 8.0 (5.0-7.0) H 08/08/17 20:15 Ur Specific [place] 1.015 (1.003-1.030) 08/08/17 20:15 Urine Protein 100 mg/dl mg/dL (Negative) 08/08/17 20:15 Urine Glucose (UA) Neg mg/dL (Negative) 08/08/17 20:15 Urine Ketones Neg mg/dL (Negative) 08/08/17 20:15 Urine Blood Mod (Negative) 08/08/17 20:15 Urine Nitrite Neg (Negative) 08/08/17 20:15 Urine Bilirubin Neg (Negative) 08/08/17 20:15 Urine Urobilinogen < 2.0 mg/dL (<2.0) 08/08/17 20:15 Ur Leukocyte Esterase Lg (Negative) 08/08/17 20:15 Urine WBC (Auto) 24.0 /HPF (0.0-6.0) H 08/08/17 20:15 Urine RBC (Auto) 3.0 /HPF (0.0-6.0) 08/08/17 20:15 U Epithel Cells (Auto) 3.0 /HPF (0-13.0) 08/08/17 20:15 Urine Bacteria (Auto) 4+ /HPF (Negative) 08/08/17 20:15 Urine Mucus 3+ /HPF 08/08/17 20:15 Fluid Type Peritoneal 08/08/17 18:18 Fluid Color Straw 08/08/17 18:18 Fluid Appearance Clear 08/08/17 18:18 Fluid pH 7.74 08/08/17 18:18 Fluid WBC 4 /mm3 08/08/17 18:18 Fluid RBC 1 /mm3 08/08/17 18:18 Fluid Seg Neutrophils 12 % 08/08/17 18:18 Fluid Lymphocytes 0 % 08/08/17 18:18 Fluid Reactive Lymphs 0 % 08/08/17 18:18 Fluid Monocytes 1 % 08/08/17 18:18 Fluid Eosinophils 0 % 08/08/17 18:18 Fluid Basophils 0 % 08/08/17 18:18 Fluid Glucose 315 mg/dL (40-70) H 08/08/17 18:18 Random Vancomycin 20.5 ug/mL (0-40.0) 08/10/17 04:45 Blood Type O POSITIVE 08/08/17 14:52 Antibody Screen Negative 08/08/17 14:52
--- NOTE | 2017-08-15 15:19 | Progress Note ---
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 Bout of hypotension likely vasovagal. Currently stable cardiac status. Cont midodrine. Pt is currently at moderate cardiovascular risk for cystoscopy and/or stent exchange. There are no immediate contraindications to proceeding with these procedures at this time. IV abx per primary. Will see PRN. The patient has been seen in conjunction with Dr. Jacobo who agrees with the assessment and plan of care. Subjective Date of service: 08/15/17 Principal diagnosis: hypotension Interval history: Pt resting comfortably in bed, denies any current complaints. VSS. Called to re- evaluate pt d/t episode of n/v and hypotension preior to cyst and stent exchange yesterday. Objective Vital Signs Temp Pulse Resp BP BP Pulse Ox 08/15/17 04:44 97.3 F L 22 89/60 08/14/17 21:00 104 H 08/14/17 19:56 98.2 F 90 19 98/42 08/14/17 19:46 98/42 08/14/17 16:31 61 84/47 62 L - Physical Examination General: Appears Well, No Apparent Distress HEENT: Positive: EOMI, Normocephaly, Mucus Membranes Moist Neck: Positive: neck supple Cardiac: Positive: Reg Rate and Rhythm, S1/S2 Lungs: Positive: clear to auscultation Neuro: Positive: Other (right lower extremity weakness) Abdomen: Positive: Soft, Active Bowel Sounds, Tender (mildly tender) Skin: Positive: Clear. Negative: Rash Musculoskeletal: Normal Range of Motion Extremities: Absent: edema - Labs and Meds Comprehensive Metabolic Panel 08/15/17 Range/Units 09:10 Sodium 136 L (137-145) mmol/L Potassium 4.0 D (3.6-5.0) mmol/L Chloride 97.6 L (98-107) mmol/L Carbon Dioxide 24 (22-30) mmol/L BUN 27 H (7-17) mg/dL Creatinine 5.6 H (0.7-1.2) mg/dL Glucose 117 H (65-100) mg/dL Calcium 8.6 (8.4-10.2) mg/dL - Imaging and Cardiology EKG: image reviewed Echo: report reviewed (EF 55-60%, trace MR, trace TR) - EKG Sinus rhythms and dysrhythmias: sinus rhythm Repolarization changes or abnormalities: ST or T wave suggestive of ischemia
[2017-08-15] MEDS: NACL 0.9% 1000 ML 1,000 ML IV SCH (18:17)
[2017-08-15] MEDS: MERREM 1,000 MG in NACL 0.9% 100 ML IV SCH (18:18)
--- NOTE | 2017-08-15 23:35 | Progress Note ---
Assessment and Plan - Patient Problems (1) End-stage renal disease on peritoneal dialysis Current Visit: Yes Status: Chronic Plan to address problem: continue PD (2) Leukocytosis Current Visit: Yes Status: Acute Qualifiers: Leukocytosis type: L Plan to address problem: See notes above. make sure that PD access is clean also. (3) Anemia Current Visit: Yes Status: Acute Qualifiers: Anemia type: A Iron deficiency anemia type: I Vitamin B12 deficiency anemia type: V Folate deficiency anemia type: F Bone marrow failure anemia type: B Hemolytic anemia type: H Other causes of anemia: O Chronic kidney disease stage: C Plan to address problem: Continue to monitor. Subjective Date of service: 08/15/17 Principal diagnosis: /anemia, poor oral intake. Interval history: Patient seen today/examined, labs reviewed, case d/w she, and family.complaints of abdominal pain. Objective - Constitutional Vitals: Vital Signs - 12hr 08/15/17 18:06 Pulse Rate 97 H Blood Pressure 93/58 O2 Sat by Pulse 99 Oximetry General appearance: Present: mild distress, well-nourished - EENT Eyes: PERRL, EOM intact ENT: hearing intact, clear oral mucosa Ears: bilateral: normal - Neck Neck: supple, normal ROM - Respiratory Respiratory effort: normal Respiratory: bilateral: CTA - Breasts Breasts: deferred - Cardiovascular Rhythm: regular Heart Sounds: Present: S1 & S2. Absent: gallop, rub Extremities: pulses intact, No edema, normal color, Full ROM - Gastrointestinal General gastrointestinal: Present: soft, tender, non-distended, normal bowel sounds Rectal Exam: deferred - Genitourinary Female genitourinary: deferred - Integumentary Integumentary: clear, warm, dry - Musculoskeletal Musculoskeletal: generalized weakness - Neurologic Neurologic: moves all extremities - Psychiatric Psychiatric: memory intact, appropriate mood/affect, intact judgment & insight - Labs CBC & Chem 7: 08/14/17 04:00 08/15/17 09:10 Labs: Abnormal lab results 08/15/17 Range/Units 09:10 Sodium 136 L (137-145) mmol/L Chloride 97.6 L (98-107) mmol/L BUN 27 H (7-17) mg/dL Creatinine 5.6 H (0.7-1.2) mg/dL Glucose 117 H (65-100) mg/dL
[2017-08-15] MEDS ORDERED: NACL 0.9% 250ML 250 ML IV ONE (23:50)
[2017-08-16] MEDS: CEPHULAC PO SCH ×4 (00:14→18:45)
[2017-08-16] MEDS: DIANEAL PD-2 W/1.5% DEXTROSE IP SCH ×4 (05:29→23:25)
--- NOTE | 2017-08-16 08:18 | Progress Note ---
Assessment and Plan - Patient Problems (1) End-stage renal disease on peritoneal dialysis Current Visit: Yes Status: Chronic Plan to address problem: PD is on hold due to hypotension. CT abdomen showed SBO. D/w her regarding switching to HD so she can have PEG tube placed. He agreed to switch her to hemodialysis. D/w for placement of hemdialysis catheter. Monitor volume status and [employer] needs. (2) Anemia Current Visit: No Status: Chronic Qualifiers: Anemia type: due to chronic kidney disease Iron deficiency anemia type: I Vitamin B12 deficiency anemia type: V Folate deficiency anemia type: F Bone marrow failure anemia type: B Hemolytic anemia type: H Other causes of anemia: O Chronic kidney disease stage: on chronic dialysis Qualified Code(s ): N18.6 - End stage renal disease; D63.1 - Anemia in chronic kidney disease; Z99.2 - Dependence on renal dialysis Plan to address problem: Epogen. (3) Hypotension Current Visit: Yes Status: Chronic Qualifiers: Hypotension type: H Trimester: T Plan to address problem: Chronic hypotension. On Midodrine. (4) Leukocytosis Current Visit: Yes Status: Acute Qualifiers: Leukocytosis type: unspecified Qualified Code(s): D72.829 - Elevated white blood cell count, unspecified (5) Poor appetite Current Visit: Yes Status: Chronic Subjective Date of service: 08/16/17 Principal diagnosis: /anemia, poor oral intake. Interval history: Patient is hypotensive. Objective - Vital Signs Vital signs: Vital Signs - 12hr 08/16/17 08/16/17 08/16/17 05:06 05:08 06:00 Temperature 98.3 F Pulse Rate 87 102 H Respiratory 20 Rate Blood Pressure 190/76 88/50 [Left] O2 Sat by Pulse 99 Oximetry - General Appearance General appearance: well-developed, appears stated age, obese, other (no distress) EENT: ATNC, PERRL, hearing intact Neck: supple Respiratory: Present: Clear to Ascultation Cardiology: regular, S1S2, no murmurs Gastrointestinal: normoactive bowel sounds, no tenderness, other (PD catheter noted) Integumentary: no rash Neurologic: other (right LE weakness noted) Musculoskeletal: other (trace pedal edema noted) Psychiatric: mood/affect appropriate, cooperative - Lab 08/16/17 09:50 08/16/17 09:50 Most recent lab results Calcium 8.6 mg/dL (8.4-10.2) 08/15/17 09:10 Phosphorus 3.60 mg/dL (2.5-4.5) 08/15/17 09:10 Magnesium 2.00 mg/dL (1.7-2.3) 08/15/17 09:10
[2017-08-16 10:44] LABS: White Blood Count 31.1 K/mm3 (4.5-11.0)
[2017-08-16 10:45] LABS: Hematocrit 29.3 % (30.3-42.9); Hemoglobin 9.6 gm/dl (10.1-14.3); Mean Corpuscular HGB Conc 33 % (30-34); Mean Corpuscular Hemoglobin 30 pg (28-32); Mean Corpuscular Volume 92 fl (79-97); Platelet Count 642 K/mm3 (140-440); Red Blood Count 3.21 M/mm3 (3.65-5.03); Red Cell Distribution Width 18.1 % (13.2-15.2)
[2017-08-16 10:52] LABS: Albumin 1.5 g/dL (3.9-5); Albumin/Globulin Ratio 0.4 %; BUN/Creatinine Ratio 5.09; Bilirubin,Total 0.4 mg/dL (0.1-1.2); Calcium 8.6 mg/dL (8.4-10.2); Chloride 94.9 mmol/L (98-107); Magnesium 1.9 mg/dL (1.7-2.3); Phosphorous 4.1 mg/dL (2.5-4.5); Potassium 3.5 mmol/L (3.6-5.0); Total Protein 5.4 g/dL (6.3-8.2)
--- NOTE | 2017-08-16 10:52 | XRay Report ---
Abdominal series: Compared to 08/15/17. History: Followup of ileus and/or mid of contrast. Findings: Cardiomegaly. No acute lung changes. Contrast is noted in fundus of stomach. No progress of contrast is seen beyond the fundus. Distended loops of small bowel. Bilateral stable ureteral stents. Impression: Retained contrast in fundus of stomach. Distended small bowel without significant interval change.
--- NOTE | 2017-08-16 11:15 | Gastroenterology Progress Note ---
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 Interval history: Patient sitting up in bed drinking contrast. Family at bedside. No acute distress noted. Admits to abd discomfort but denies N/V this morning. Objective - Constitutional Vitals: Temp Pulse Resp BP Pulse Ox 98.3 F 102 H 20 88/50 99 08/16/17 05:06 08/16/17 06:00 08/16/17 05:08 08/16/17 05:08 08/16/17 05:08 General appearance: no acute distress, obese - EENT Eyes: PERRL, EOM intact - Respiratory Respiratory: bilateral: CTA (anterior) - Cardiovascular Heart Sounds: Present: S1 & S2 - Gastrointestinal General gastrointestinal: Present: soft, tender (generalized), non-distended, normal bowel sounds - Integumentary Integumentary: Present: warm, dry - Neurologic Neurological: alert and oriented x3 - Labs CBC & Chem 7: 08/16/17 09:50 08/16/17 09:50 Labs: Laboratory Results - last 24 hr 08/16/17 08/16/17 09:50 09:50 WBC 31.1 H RBC 3.21 L Hgb 9.6 L Hct 29.3 L MCV 92 MCH 30 MCHC 33 RDW 18.1 H Plt Count 642 H Sodium 136 L Potassium 3.5 L Chloride 94.9 L Carbon Dioxide 24 Anion Gap 21 BUN 28 H Creatinine 5.5 H Estimated GFR 10 BUN/Creatinine Ratio 5.09 Glucose 103 H Calcium 8.6 Phosphorus 4.10 Magnesium 1.90 Total Bilirubin 0.40 AST 35 ALT 10 Alkaline Phosphatase 137 H Total Protein 5.4 L Albumin 1.5 L Albumin/Globulin Ratio 0.4 Amylase 45 Lipase 34
[2017-08-16 11:17] LABS: Basophils % (Manual) 0 % (0.0-1.8); Blastocytes % (Manual) 0 %; Eosinophils % (Manual) 0 % (0.0-4.3)
[2017-08-16 11:18] LABS: Anisocytosis 1+; Hypochromasia 1+
[2017-08-16 11:20] LABS: Polychromasia Few
[2017-08-16 11:21] LABS: Diff Status Complete; Target Cells Few
[2017-08-16 11:22] LABS: Platelet Estimate Cons
--- NOTE | 2017-08-16 11:54 | Event Note ---
Date: 08/16/17 62 year old female with multiple medical problems including complex gastric surgery and obstruction with ileus. Patient requires TPN, and is ESRD with PD dialysis. Contacted by Dr. Rasmussen for Wells placement. Discussed with Dr. Chen, and Dr. Carvajal of ID for wells placement, and they agreed. Dr. Carvajal believes that it is reasonable to place a tunneled catheter given the lack of bacteremia. I suspect PEG tube placement or IR guided gastrostomy tube placement will be very complicated because the NG tube for inflation will need to be in the distal stomach, which will be very difficult, otherwise the proximal portion of the stomach will be insuflated and this will not displace the colon or dilate up enough for percutaneous access of the stomach. Complicated patient.
--- NOTE | 2017-08-16 11:58 | Progress Note ---
Assessment and Plan Assessment: 1) Sepsis: worsening leukocytosis; source complicated CA-UTI. CRP=28 2) CA-UTI: chronic ivan exchanged every 4 weeks and ureteral stents in place which are exchanged every 6 months ? urine cultures still pending should r/o MDR bacteria 3) Paraplegia 4) ESRD on PD - no evidence of peritonitis, wbc count 2. ECHO TECH and Diphteroids on peritoneal fluid likely contaminants. 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 7) Penicillin allergy-has taken keflex w/o problems Plan: -continue meropenem day 4 -Ok to place Nair cath -to the OR for stents exchange when stable -f/u leukocytosis -recheck CRP/procalcitonin I will be available over the phone on Saturday and will see her back on Saturday Thank you Dr Chen for your consultation, will follow up with you. Ramya Lang MD Infectious Diseases Specialist [facility] ([facility] M [phone] O [phone] Subjective Date of service: 08/16/17 Principal diagnosis: poor oral intake. Interval history: Remains sick with poor appetite, abdominal pain L>R some better, nausea. No fever. Microbiology: Blood cultures: 08/08 neg 08/12 neg Urine cultures: 08/08 10-100K skin grace Respiratory cultures: Wound cultures: Stool cultures: Other: 08/08 peritoneal fluid + ECHO TECH/Diphteroids Current Antimicrobials: 08/13 meropenem Previous Antimicrobials: 08/10 levaquin Objective - Exam Narrative Exam: General appearance: Alert in NAD Eyes: anicteric sclerae, moist conjunctivae; no lid-lag; PERRLA HENT: Atraumatic; oropharynx clear Neck: Trachea midline; supple, no thyromegaly or lymphadenopathy Lungs: CTA, with normal respiratory effort and no intercostal retractions CV: RRR, no murmurs Abdomen: Soft, tender R>L Extremities: + peripheral edema + leg ulcer Skin: Normal temperature, turgor and texture; no rash, ulcers or subcutaneous nodules Psych: Appropriate affect, alert and oriented to person, place and time. Neuro: alert and oriented x 3. Moving all extermities Lines: - Constitutional Vitals: Vital Signs Temp Pulse Resp BP Pulse Ox 98.3 F 102 H 20 88/50 99 08/16/17 05:06 08/16/17 06:00 08/16/17 05:08 08/16/17 05:08 08/16/17 05:08 Temperature -Last 24 Hours Temperature 98.3 F - Labs CBC & Chem 7: 08/16/17 09:50 08/16/17 09:50 Labs: Abnormal lab results 08/16/17 08/16/17 Range/Units 09:50 09:50 WBC 31.1 H (4.5-11.0) K/mm3 RBC 3.21 L (3.65-5.03) M/mm3 Hgb 9.6 L (10.1-14.3) gm/dl Hct 29.3 L (30.3-42.9) % RDW 18.1 H (13.2-15.2) % Plt Count 642 H (140-440) K/mm3 Seg Neuts % (Manual) 74.0 H (40.0-70.0) % Lymphocytes % (Manual) 4.0 L (13.4-35.0) % Monocytes % (Manual) 9.0 H (0.0-7.3) % Seg Neutrophils # Man 23.0 H (1.8-7.7) K/mm3 Monocytes # (Manual) 2.8 H (0.0-0.8) K/mm3 Sodium 136 L (137-145) mmol/L Potassium 3.5 L (3.6-5.0) mmol/L Chloride 94.9 L (98-107) mmol/L BUN 28 H (7-17) mg/dL Creatinine 5.5 H (0.7-1.2) mg/dL Glucose 103 H (65-100) mg/dL Alkaline Phosphatase 137 H (35-129) units/L Total Protein 5.4 L (6.3-8.2) g/dL Albumin 1.5 L (3.9-5) g/dL
[2017-08-16] MEDS: PROAMATINE PO SCH ×3 (11:59→20:00)
[2017-08-16] MEDS: MEGACE PO SCH ×4 (12:14→22:00)
[2017-08-16] MEDS: PROTONIX IV SCH ×2 (12:34→21:55)
--- NOTE | 2017-08-16 12:36 | Event Note ---
Date: 08/16/17 cancel procedure review CTAP (08-08-17) - report states bilat stents renal us (today) -- no hydro, suggestive in bilat stents [address]----needed assistance with legs for placement A/P retention will coordinate stent exchange soon seen by Cards - ok to proceed will set up for cysto next week
--- NOTE | 2017-08-16 13:10 | Progress Note ---
Assessment and Plan - Patient Problems (1) Vomiting Current Visit: Yes Status: Acute Qualifiers: Vomiting type: V Vomiting Intractability: V Nausea presence: with nausea Plan to address problem: 62 y.o. F with hx of bariatric surgery, multiple co-morbidities: Follow abdominal xr and cxr show contrast remains in stomach, likely a dilated out pouching that is part of her stomach. The contrast does not appear to have moved. The imaging also shows persitant small bowel dilation with concern for ongoing ileus vs possible obstruction. Rec. CT abd/pelvis with IV contrast to further evaluate. Avoid reglan until an obstruction can be ruled out. IF pt only with ileus, relgan can be restarted. Continue zofran and nausea control. Rec. NPO and meds should be transitioned to IV. Ileus could be 2/2 electrolyte disturbances from lack of PD due to hypotension. Leukocytosis- Originally thought to be from urosepsis, but pt has been on antibx and urine culture is negative. Agree with ID recs for CT abd/pelvis. Though patient is not having bowel movements she has been on antibiotics most recently in June at a different facility and would rec testing Cdiff as a possible cause of leukocytosis. Rec rpt all cultures if patient has a fever. -Merrem- Vanco/flagyl- Per ID poss abd. source Rec. daily evals of wounds to ensure not a source of WBC Nutrition: Discussed importance of nutrition and unable to feed patient at this time with primary. Rec. TPN as long as she is stable. IR to place wells for TPN. retirement enteral feeding would be better however NG feeds contraindicated at this time due to ileus/possible sbo. It will be difficult to pass NG tube to distal stomach due to the surgically altered stomach. Pt may need PEG via GI if IR unable to place it. Prior to PEG or any abdominal procedures, the patient would need to be trasnitioned to Hemodialysis. The goal at this time is to stabilize the patient and find the underlying cause of her leukocytosis and in the meantime she should be on TPN. Gastric Ulcers: rec PPI, carafate. Avoid NSAIDs. CKD- PD currently held due to hypotension. Renal following. Subjective Date of service: 08/16/17 Patient Reports: Positive: still having pain, no flatus, no bowel movement, nausea, afebrile Narrative: Pt seen and examined at bedside. at bedside. Pt continues to have spitting up of mucus. No bilious vomiting. No bm overnight. She has pain upper abdomen HD was not performed due to hypotension. Afebrile Objective Vital Signs - 12hr 08/16/17 08/16/17 08/16/17 05:06 05:08 06:00 Temperature 98.3 F Pulse Rate 87 102 H Respiratory 20 Rate Blood Pressure 190/76 88/50 [Left] O2 Sat by Pulse 99 Oximetry 08/16/17 08/16/17 08/16/17 11:10 11:50 12:10 Temperature Pulse Rate 41 L 103 H 87 Respiratory Rate Blood Pressure 54/38 68/49 76/36 [Left] O2 Sat by Pulse Oximetry 08/16/17 08/16/17 12:12 12:49 Temperature 98.8 F Pulse Rate 36 L 108 H Respiratory Rate Blood Pressure 96/27 [Left] O2 Sat by Pulse Oximetry - General physical appearance chronically ill, obese - Respiratory normal expansion, normal respiratory effort, clear to auscultation - Abdomen soft, surgical scars (midline healed ), other (soft, obese, upper addomen with fulness bl. tender epigastric, LUQ and RUQ, no rebound no guarding. PD cather in place. no erythema or discharge surrounding site. ) - Genitourinary other (+ivan ) - Neurologic other (drowsy) - Psychiatric oriented to person, oriented to place, other (poor memory, speech is slow ) - Labs 08/16/17 09:50 08/16/17 09:50 Diabetes panel 08/16/17 Range/Units 09:50 Sodium 136 L (137-145) mmol/L Potassium 3.5 L (3.6-5.0) mmol/L Chloride 94.9 L (98-107) mmol/L Carbon Dioxide 24 (22-30) mmol/L BUN 28 H (7-17) mg/dL Creatinine 5.5 H (0.7-1.2) mg/dL Glucose 103 H (65-100) mg/dL Calcium 8.6 (8.4-10.2) mg/dL AST 35 (5-40) units/L ALT 10 (7-56) units/L Alkaline Phosphatase 137 H (35-129) units/L Total Protein 5.4 L (6.3-8.2) g/dL Albumin 1.5 L (3.9-5) g/dL Calcium panel 08/16/17 Range/Units 09:50 Calcium 8.6 (8.4-10.2) mg/dL Phosphorus 4.10 (2.5-4.5) mg/dL Albumin 1.5 L (3.9-5) g/dL Pituitary panel 08/16/17 Range/Units 09:50 Sodium 136 L (137-145) mmol/L Potassium 3.5 L (3.6-5.0) mmol/L Chloride 94.9 L (98-107) mmol/L Carbon Dioxide 24 (22-30) mmol/L BUN 28 H (7-17) mg/dL Creatinine 5.5 H (0.7-1.2) mg/dL Glucose 103 H (65-100) mg/dL Calcium 8.6 (8.4-10.2) mg/dL Adrenal panel 08/16/17 Range/Units 09:50 Sodium 136 L (137-145) mmol/L Potassium 3.5 L (3.6-5.0) mmol/L Chloride 94.9 L (98-107) mmol/L Carbon Dioxide 24 (22-30) mmol/L BUN 28 H (7-17) mg/dL Creatinine 5.5 H (0.7-1.2) mg/dL Glucose 103 H (65-100) mg/dL Calcium 8.6 (8.4-10.2) mg/dL Total Bilirubin 0.40 (0.1-1.2) mg/dL AST 35 (5-40) units/L ALT 10 (7-56) units/L Alkaline Phosphatase 137 H (35-129) units/L Total Protein 5.4 L (6.3-8.2) g/dL Albumin 1.5 L (3.9-5) g/dL - Imaging Chest x-ray: image reviewed Abdominal x-ray: image reviewed
[2017-08-16] MEDS ORDERED: HEPARIN/NS 5000 UNIT/500ML(CATH LAB) 1,000 ML IR ONE (13:52)
[2017-08-16] MEDS ORDERED: XYLOCAINE 2% INFILTRATI ONE (13:52)
[2017-08-16] MEDS ORDERED: HEPARIN 10,000 UNITS/10 ML ONE (13:52)
[2017-08-16] MEDS ORDERED: VANCOMYCIN/NS 1 GM/250 ML 1 GM/250 ML BAG IV ONE ×2 (13:53→16:00)
--- NOTE | 2017-08-16 14:00 | Progress Note ---
Assessment and Plan Assessment and plan: Sepstic shock. Patient has become hypotensive and has a worsening leukocytosis. Etiology likely secondary to complicated CAUTI. Blood and Urine cultures pending. Repeat blood culture from 08/12 thus far is negative. Continue Meropenem. Patient will be transferred to the ICU and started on Levophed drip. Urinary retention/ ? Infected stents. Urology to coordinate stent exchange next week. Renal us -- no hydro, suggestive in bilat stents Ileus. Delayed gastric emptying. Also, it appears the patient has a gastric pouch that is retaining fluid that is causing her to vomit. GI and surgery following. Surgery recommends discontinuation of Reglan until an obstruction can be ruled out. IR to place PICC line for TPN. The patient may need a PEG at some point. Prior to PEG or any abdominal procedures, the patient would need to be trasnitioned to Hemodialysis. I discussed the case with nephrology. Chronic hypotension - Patient is on IV fluids, IV antibiotics - Cardiology following and echo is normal - Continue Midodrine End-stage renal disease on PD - Patient may need to be converted to hemodialysis for possible PEG or J-tube placement. - Continue PD for now History of cervical surgery and postoperative wheelchair bound since then - pain control Ulcerative esophagitis/small gastric ulcer. Patient status post EGD today. Biopsy pending. UTI on the setting of Indwelling catheter, RLE wound - on Levaquin Poor oral intake - No PEG placement secondary to peritoneal dialysis. Continue Marinol for appetite stimulant. We'll also add Megace and Reglan. Leukocytosis. - ID following -Follow up CBC. DVT prophylaxis Disposition - Prognosis is guarded. The high probability of a clinically significant, sudden or life threatening deterioration of the [hemodynamic] system(s) required my full and direct attention, intervention and personal management. The aggregate critical care time was [32] minutes. This time is in addition to time spent performing reported procedures but includes the following: [x] Data Review and interpretation [x] Patient assessment and monitoring of vital signs [x] Documentation [x] Medication orders and management History Interval history: No new issues overnight. Hospitalist Physical - Constitutional Vitals: Temp Pulse Resp BP Pulse Ox 98.8 F 108 H 20 96/27 99 08/16/17 12:49 08/16/17 12:49 08/16/17 05:08 08/16/17 12:12 08/16/17 05:08 General appearance: Present: mild distress, well-nourished - EENT Eyes: Present: PERRL, EOM intact ENT: hearing intact, clear oral mucosa, dentition normal - Neck Neck: Present: supple, normal ROM - Respiratory Respiratory effort: normal Respiratory: bilateral: CTA - Cardiovascular Rhythm: regular Heart Sounds: Present: S1 & S2. Absent: gallop, rub - Extremities Extremities: no ischemia, No edema, Full ROM - Abdominal General gastrointestinal: soft, non-tender, non-distended, normal bowel sounds - Integumentary Integumentary: Present: clear, warm, dry - Neurologic Neurologic: CNII-XII intact, moves all extremities Results - Labs CBC & Chem 7: 08/16/17 09:50 08/16/17 09:50 Labs: Laboratory Last Values WBC 31.1 K/mm3 (4.5-11.0) H 08/16/17 09:50 RBC 3.21 M/mm3 (3.65-5.03) L 08/16/17 09:50 Hgb 9.6 gm/dl (10.1-14.3) L 08/16/17 09:50 Hct 29.3 % (30.3-42.9) L 08/16/17 09:50 MCV 92 fl (79-97) 08/16/17 09:50 MCH 30 pg (28-32) 08/16/17 09:50 MCHC 33 % (30-34) 08/16/17 09:50 RDW 18.1 % (13.2-15.2) H 08/16/17 09:50 Plt Count 642 K/mm3 (140-440) H 08/16/17 09:50 Lymph % (Auto) 7.5 % (13.4-35.0) L 08/11/17 04:00 [place] % (Auto) Exhibit Preparator 08/13/17 06:14 Eos % (Auto) 0.5 % (0.0-4.3) 08/11/17 04:00 Baso % (Auto) 0.4 % (0.0-1.8) 08/11/17 04:00 Lymph # 1.5 K/mm3 (1.2-5.4) 08/11/17 04:00 [place] # 2.8 K/mm3 (0.0-0.8) H 08/11/17 04:00 Eos # 0.1 K/mm3 (0.0-0.4) 08/11/17 04:00 Baso # 0.1 K/mm3 (0.0-0.1) 08/11/17 04:00 Add Manual Diff Complete 08/16/17 09:50 Total Counted 100 08/16/17 09:50 Seg Neutrophils % 77.0 % (40.0-70.0) H 08/11/17 04:00 Seg Neuts % (Manual) 74.0 % (40.0-70.0) H 08/16/17 09:50 Band Neutrophils % 5.0 % 08/16/17 09:50 Lymphocytes % (Manual) 4.0 % (13.4-35.0) L 08/16/17 09:50 Reactive Lymphs % (Man) 0 % 08/16/17 09:50 Monocytes % (Manual) 9.0 % (0.0-7.3) H 08/16/17 09:50 Eosinophils % (Manual) 0 % (0.0-4.3) 08/16/17 09:50 Basophils % (Manual) 0 % (0.0-1.8) 08/16/17 09:50 Metamyelocytes % 6.0 % 08/16/17 09:50 Myelocytes % 2.0 % 08/16/17 09:50 Promyelocytes % 0 % 08/16/17 09:50 Blast Cells % 0 % 08/16/17 09:50 Nucleated RBC % Not Reportable 08/16/17 09:50 Seg Neutrophils # 14.8 K/mm3 (1.8-7.7) H 08/11/17 04:00 Seg Neutrophils # Man 23.0 K/mm3 (1.8-7.7) H 08/16/17 09:50 Band Neutrophils # 1.6 K/mm3 08/16/17 09:50 Lymphocytes # (Manual) 1.2 K/mm3 (1.2-5.4) 08/16/17 09:50 Abs React Lymphs (Man) 0.0 K/mm3 08/16/17 09:50 Monocytes # (Manual) 2.8 K/mm3 (0.0-0.8) H 08/16/17 09:50 Eosinophils # (Manual) 0.0 K/mm3 (0.0-0.4) 08/16/17 09:50 Basophils # (Manual) 0.0 K/mm3 (0.0-0.1) 08/16/17 09:50 Metamyelocytes # 1.9 K/mm3 08/16/17 09:50 Myelocytes # 0.6 K/mm3 08/16/17 09:50 Promyelocytes # 0.0 K/mm3 08/16/17 09:50 Blast Cells # 0.0 K/mm3 08/16/17 09:50 WBC Morphology Not Reportable 08/16/17 09:50 Hypersegmented Neuts Not Reportable 08/16/17 09:50 Hyposegmented Neuts Not Reportable 08/16/17 09:50 Hypogranular Neuts Not Reportable 08/16/17 09:50 Smudge Cells Not Reportable 08/16/17 09:50 Toxic Granulation Not Reportable 08/16/17 09:50 Toxic Vacuolation Not Reportable 08/16/17 09:50 Dohle Bodies Not Reportable 08/16/17 09:50 Pelger-Huet Anomaly Not Reportable 08/16/17 09:50 Ariel Rods Not Reportable 08/16/17 09:50 Platelet Estimate Cons 08/16/17 09:50 Clumped Platelets Not Reportable 08/16/17 09:50 Plt Clumps, EDTA Not Reportable 08/16/17 09:50 Large Platelets Not Reportable 08/16/17 09:50 Giant Platelets Not Reportable 08/16/17 09:50 Platelet Satelliting Not Reportable 08/16/17 09:50 Plt Morphology Comment Not Reportable 08/16/17 09:50 RBC Morphology Not Reportable 08/16/17 09:50 Dimorphic RBCs Not Reportable 08/16/17 09:50 Polychromasia Few 08/16/17 09:50 Hypochromasia 1+ 08/16/17 09:50 Poikilocytosis Not Reportable 08/16/17 09:50 Anisocytosis 1+ 08/16/17 09:50 Microcytosis Not Reportable 08/16/17 09:50 Macrocytosis Not Reportable 08/16/17 09:50 Spherocytes Not Reportable 08/16/17 09:50 Pappenheimer Bodies Not Reportable 08/16/17 09:50 Sickle Cells Not Reportable 08/16/17 09:50 Target Cells Few 08/16/17 09:50 Tear Drop Cells Not Reportable 08/16/17 09:50 Ovalocytes Not Reportable 08/16/17 09:50 Helmet Cells Not Reportable 08/16/17 09:50 Vera-Bogart Bodies Not Reportable 08/16/17 09:50 [place] Rings Not Reportable 08/16/17 09:50 Yusuf Cells Not Reportable 08/16/17 09:50 Bite Cells Not Reportable 08/16/17 09:50 Crenated Cell Not Reportable 08/16/17 09:50 Elliptocytes Not Reportable 08/16/17 09:50 Acanthocytes (Spur) Not Reportable 08/16/17 09:50 Rouleaux Not Reportable 08/16/17 09:50 Hemoglobin C Crystals Not Reportable 08/16/17 09:50 Schistocytes Not Reportable 08/16/17 09:50 Malaria parasites Not Reportable 08/16/17 09:50 Jovanni Bodies Not Reportable 08/16/17 09:50 Hem Pathologist Commnt No 08/16/17 09:50 PT 15.2 Sec. (12.2-14.9) H 08/12/17 05:50 INR 1.14 (0.87-1.13) H 08/12/17 05:50 APTT 35.5 Sec. (24.2-36.6) 08/12/17 05:50 POC ABG pH 7.490 (7.35-7.45) H 08/08/17 21:31 POC ABG pCO2 35.4 (35-45) 08/08/17 21:31 POC ABG pO2 122 (80-105) H 08/08/17 21:31 POC ABG HCO3 26.9 08/08/17 21:31 POC ABG Total CO2 28 08/08/17 21:31 POC ABG O2 Sat 99 08/08/17 21:31 POC ABG Base Excess 4 08/08/17 21:31 VBG pH 7.462 (7.320-7.420) H 08/08/17 14:52 FiO2 28 % 08/08/17 21:31 Sodium 136 mmol/L (137-145) L 08/16/17 09:50 Potassium 3.5 mmol/L (3.6-5.0) L 08/16/17 09:50 Chloride 94.9 mmol/L (98-107) L 08/16/17 09:50 Carbon Dioxide 24 mmol/L (22-30) 08/16/17 09:50 Anion Gap 21 mmol/L 08/16/17 09:50 BUN 28 mg/dL (7-17) H 08/16/17 09:50 Creatinine 5.5 mg/dL (0.7-1.2) H 08/16/17 09:50 Estimated GFR 10 ml/min 08/16/17 09:50 BUN/Creatinine Ratio 5.09 % 08/16/17 09:50 Glucose 103 mg/dL (65-100) H 08/16/17 09:50 POC Glucose 151 (70-105) H 08/13/17 16:39 Lactic Acid 0.70 mmol/L (0.7-2.0) 08/09/17 05:00 Calcium 8.6 mg/dL (8.4-10.2) 08/16/17 09:50 Phosphorus 4.10 mg/dL (2.5-4.5) 08/16/17 09:50 Magnesium 1.90 mg/dL (1.7-2.3) 08/16/17 09:50 Total Bilirubin 0.40 mg/dL (0.1-1.2) 08/16/17 09:50 Direct Bilirubin 0.2 mg/dL (0-0.2) 08/08/17 14:11 Indirect Bilirubin 0.3 mg/dL 08/08/17 14:11 AST 35 units/L (5-40) 08/16/17 09:50 ALT 10 units/L (7-56) 08/16/17 09:50 Alkaline Phosphatase 137 units/L (35-129) H 08/16/17 09:50 Ammonia 25.0 umol/L (25-60) 08/08/17 14:52 Troponin T 0.132 ng/mL (0.00-0.029) H* 08/09/17 13:25 C-Reactive Protein 26.10 mg/dL (0.00-1.30) H 08/12/17 16:23 NT-Pro-B Natriuret Pep 6156 pg/mL (0-900) H 08/08/17 14:11 Total Protein 5.4 g/dL (6.3-8.2) L 08/16/17 09:50 Albumin 1.5 g/dL (3.9-5) L 08/16/17 09:50 Albumin/Globulin Ratio 0.4 % 08/16/17 09:50 Triglycerides 62 mg/dL (2-149) 08/08/17 21:23 Cholesterol 91 mg/dL (50-199) 08/08/17 21:23 LDL Cholesterol Direct 53 mg/dL (50-130) 08/08/17 21:23 HDL Cholesterol 26 mg/dL (40-59) L 08/08/17 21:23 Cholesterol/HDL Ratio 3.50 % 08/08/17 21:23 Amylase 45 units/L (27-131) 08/16/17 09:50 Lipase 34 units/L (13-60) 08/16/17 09:50 TSH 6.580 mlU/mL (0.270-4.200) H 08/08/17 14:22 Free T4 1.46 ng/dL (0.76-1.46) 08/08/17 14:22 Total Cortisol 30.1 mcg/dL () 08/13/17 06:14 Urine Color Yellow (Yellow) 08/08/17 20:15 Urine Turbidity Turbid (Clear) 08/08/17 20:15 Urine pH 8.0 (5.0-7.0) H 08/08/17 20:15 Ur Specific [place] 1.015 (1.003-1.030) 08/08/17 20:15 Urine Protein 100 mg/dl mg/dL (Negative) 08/08/17 20:15 Urine Glucose (UA) Neg mg/dL (Negative) 08/08/17 20:15 Urine Ketones Neg mg/dL (Negative) 08/08/17 20:15 Urine Blood Mod (Negative) 08/08/17 20:15 Urine Nitrite Neg (Negative) 08/08/17 20:15 Urine Bilirubin Neg (Negative) 08/08/17 20:15 Urine Urobilinogen < 2.0 mg/dL (<2.0) 08/08/17 20:15 Ur Leukocyte Esterase Lg (Negative) 08/08/17 20:15 Urine WBC (Auto) 24.0 /HPF (0.0-6.0) H 08/08/17 20:15 Urine RBC (Auto) 3.0 /HPF (0.0-6.0) 08/08/17 20:15 U Epithel Cells (Auto) 3.0 /HPF (0-13.0) 08/08/17 20:15 Urine Bacteria (Auto) 4+ /HPF (Negative) 08/08/17 20:15 Urine Mucus 3+ /HPF 08/08/17 20:15 Fluid Type Peritoneal 08/08/17 18:18 Fluid Color Straw 08/08/17 18:18 Fluid Appearance Clear 08/08/17 18:18 Fluid pH 7.74 08/08/17 18:18 Fluid WBC 4 /mm3 08/08/17 18:18 Fluid RBC 1 /mm3 08/08/17 18:18 Fluid Seg Neutrophils 12 % 08/08/17 18:18 Fluid Lymphocytes 0 % 08/08/17 18:18 Fluid Reactive Lymphs 0 % 08/08/17 18:18 Fluid Monocytes 1 % 08/08/17 18:18 Fluid Eosinophils 0 % 08/08/17 18:18 Fluid Basophils 0 % 08/08/17 18:18 Fluid Glucose 315 mg/dL (40-70) H 08/08/17 18:18 Random Vancomycin 20.5 ug/mL (0-40.0) 08/10/17 04:45 Blood Type O POSITIVE 08/08/17 14:52 Antibody Screen Negative 08/08/17 14:52
[2017-08-16] MEDS ORDERED: ZOFRAN ONE (14:03)
[2017-08-16] MEDS ORDERED: VERSED ONE (14:06)
[2017-08-16] MEDS ORDERED: SUBLIMAZE ONE (14:07)
[2017-08-16] MEDS ORDERED: XYLOCAINE 1%/ EPI 1:100,000 INFILTRATI ONE (14:18)
--- NOTE | 2017-08-16 14:56 | Operative Report ---
Operative Report Operative Report: EXAM: 1. Ultrasound-guided puncture of the right internal jugular vein 2. Fluoroscopic-guided placement of a right internal jugular tunneled cuffed 9.6 [place] single lumen Nair catheter . DATE: 08/16/17 INDICATION: 62 year old female with bowel obstruction requiring TPN due to gastric obstruction. MEDICATIONS: Please see nursing report for full details. DEVICES: 9.6 [place] single lumen tunneled cuffed Nair catheter. FISH FARM MANAGER: TIRSO KENNEDY MD CONTRAST: None PROCEDURE: The risks, benefits, and alternatives were discussed and informed consent was obtained. The patient was transported to the angiography suite in satisfactory/ stable condition and was transported onto the angiography table. The patient's right internal jugular vein was assessed with ultrasound and determined to be patent prior to procedure. The patient was prepped and draped in a sterile fashion. The puncture site was anesthetized. Under sonographic guidance, the right internal jugular vein was punctured with a 21-gauge micropuncture needle and a 0.018 inch wire was advanced into the inferior vena cava. 5 [place]ian transitional dilator was exchanged with the needle. Wire was used to mauri the catheter intravascular distance to the right atrium. Wire and inner dilator were removed. 0.035 inch wire was advanced into the inferior vena cava. A suitable exit site was identified on the patient's chest inferior and lateral to the venotomy. The site was anesthetized with local anesthetic and the track was anesthetized. Dermatotomy was made. The 9.6 [place] single lumen Nair catheter was tunneled between the dermatotomy to the venotomy with the assistance of the tunneler. Over 0.035 inch wire, the transitional dilator was exchanged for a 10 [place] peel-away sheath. The catheter was cut to appropriate size. Wire and introducer were removed. The catheter was advanced through the peel-away sheath under suspended respirations and positioned centrally under fluoroscopic guidance. The peel-away sheath was removed. 4-0 Vicryl suture was used to close the venotomy and Dermabond was then applied. 3-0 Ethilon suture was used to secure the catheter at the dermatotomy. The catheter was charged with heparin 200 units/mL space. Biopatch applied. Sterile dressing applied. The patient was transferred from the angiography suite back to the floor in stable condition. FINDINGS: 1. Excellent flow was obtained through the single lumen tunneled catheter. 2. The catheter tip is in the right atrium. IMPRESSION: 1. Successful ultrasound and fluoroscopically guided placement of a right internal jugular tunneled cuffed single-lumen Nair catheter.
[2017-08-16] MEDS ORDERED: VANCOMYCIN VIAL 1,000 MG in NACL 0.9% 100 ML IV SCH (15:07)
[2017-08-16] MEDS ORDERED: VANCOMYCIN PHARMACY TO DOSE IV SCH (15:07)
[2017-08-16] MEDS ORDERED: VANCOMYCIN 2,000 MG in NACL 0.9% 500 ML 500 ML IV ONE (16:30)
--- NOTE | 2017-08-16 16:42 | Operative Report ---
Operative Report Operative Report: EXAM: 1. Ultrasound-guided puncture of the right common femoral vein 2. Placement of a right common femoral vein 7 [place] triple-lumen nontunneled noncuffed catheter. DATE: 08/16/17 INDICATION: 62-year-old female with multiple medical problems requiring pressor support. MEDICATIONS: Local anesthetic (1% lidocaine). STONE FINISHER: TIRSO KENNEDY MD DEVICES: 7F triple lumen nontunneled noncuffed catheter CONTRAST: None PROCEDURE: The risks, benefits, and alternatives were discussed and informed consent was obtained. The patient's right common femoral vein was assessed with ultrasound at bedside and determined to be patent prior to procedure. The patient was prepped and draped in a sterile fashion. The puncture site was anesthetized. Under sonographic guidance, the right common femoral vein was punctured with a 18-gauge micropuncture needle and a 0.035 inch wire was advanced through the needle. Over the 0.035 inch wire, dilatation was performed. The catheter was advanced over the wire. 2-0 silk suture was used to secure the catheter. The catheter was charged with saline. Biopatch and tegaderm were applied. FINDINGS: 1. Ultrasound documented patency of the right common femoral vein. The vessel was accessed under direct ultrasound guidance. IMPRESSION: 1. Successful ultrasound guided bedside placement of a right common femoral vein nontunneled noncuffed triple lumen catheter.
[2017-08-16] MEDS ORDERED: NACL ONE (17:33)
[2017-08-16] MEDS: DIFLUCAN 200 MG/100 ML BAG IV SCH (18:56)
--- NOTE | 2017-08-16 19:13 | Cat Scan Report ---
FINAL REPORT EXAM: CT ABDOMEN PELVIS W CON HISTORY: abd pain, ileus TECHNIQUE: Serial axial images through the abdomen and pelvis with coronal and sagittal reconstruction. Intravenous administration of 100 milliliters Omnipaque 300 PRIORS: CT abdomen pelvis from 08/08/2017 FINDINGS: There is atelectasis in the lung bases. No pleural effusion is seen. There is trace amount of pneumoperitoneum compared to the prior study. There is low-density free fluid in the abdomen and pelvis. This has increased since the prior study. There is a peritoneal dialysis catheter coursing to the right lower quadrant. Gallbladder is surgically absent. No focal hepatic lesion is identified. Pancreas appears normal. Spleen appears normal. Adrenal glands appear normal. Renal atrophy is noted. There are bilateral double-J ureteral stents. Bladder is decompressed by [place] catheter. No gross abnormality is seen in the uterus or adnexa. The colon and distal small bowel are decompressed. Proximal small bowel is fluid-filled and distended measuring up to 4.1 centimeters in diameter. Surgical sequelae are noted in the stomach. The stomach is fluid-filled, as is the distal esophagus. No acute osseous abnormality is identified. IMPRESSION: 1. Findings are consistent with distal small-bowel obstruction. Surgical consultation is recommended. 2. Low-density free fluid is seen in the abdomen and pelvis. This may be related to peritoneal dialysis. 3. Interval decrease in pneumoperitoneum. 4. Surgical sequelae are noted. C1
[2017-08-16] MEDS ORDERED: TPN ADULT 1,800 ML IV SCH (20:00)
[2017-08-16] MEDS ORDERED: PROCRIT SUB-Q ONE (21:00)
[2017-08-16] MEDS: ZOFRAN IV PRN (22:50)
[2017-08-16] MEDS: MORPHINE IV PRN (22:56)
--- NOTE | 2017-08-16 23:48 | Progress Note ---
Assessment and Plan - Patient Problems (1) End-stage renal disease on peritoneal dialysis Current Visit: Yes Status: Chronic Plan to address problem: continue PD Follow renal. (2) Leukocytosis Current Visit: Yes Status: Acute Qualifiers: Leukocytosis type: L Plan to address problem: See notes above. make sure that PD access is clean also. see notes. (3) Anemia Current Visit: Yes Status: Acute Qualifiers: Anemia type: A Iron deficiency anemia type: I Vitamin B12 deficiency anemia type: V Folate deficiency anemia type: F Bone marrow failure anemia type: B Hemolytic anemia type: H Other causes of anemia: O Chronic kidney disease stage: C Plan to address problem: see notes , monitor labs,. Subjective Date of service: 08/16/17 Principal diagnosis: /anemia, poor oral intake. Interval history: Patient seen today/examined, labs reviewed, case d/w she, and family.complaints of abdominal pain. Patient resting in bed in the ICU, post vascular procedure. labs reviewed, Reactive thrombocytosis, anemia of CD, leukocytosis from infection vs inflamatory process. Objective - Constitutional Vitals: Vital Signs - 12hr 08/16/17 08/16/17 08/16/17 11:50 12:10 12:12 Temperature Pulse Rate 103 H 87 36 L Respiratory Rate Respiratory Rate [ Generalized] Blood Pressure Blood Pressure 68/49 76/36 96/27 [Left] O2 Sat by Pulse Oximetry 08/16/17 08/16/17 08/16/17 12:49 15:21 15:31 Temperature 98.8 F Pulse Rate 108 H 104 H 101 H Respiratory 16 20 Rate Respiratory Rate [ Generalized] Blood Pressure 98/69 Blood Pressure [Left] O2 Sat by Pulse Oximetry 08/16/17 08/16/17 08/16/17 15:45 16:00 16:15 Temperature 98.0 F Pulse Rate 100 H 101 H 102 H Respiratory 23 15 28 H Rate Respiratory Rate [ Generalized] Blood Pressure 102/52 114/54 114/54 Blood Pressure [Left] O2 Sat by Pulse 100 Oximetry 08/16/17 08/16/17 08/16/17 16:30 16:45 17:00 Temperature Pulse Rate 100 H 101 H 100 H Respiratory 22 21 26 H Rate Respiratory Rate [ Generalized] Blood Pressure 102/56 102/56 92/52 Blood Pressure [Left] O2 Sat by Pulse 100 Oximetry 08/16/17 08/16/17 08/16/17 17:15 18:01 18:15 Temperature Pulse Rate 100 H 101 H Respiratory 19 28 H Rate Respiratory Rate [ Generalized] Blood Pressure 92/52 148/56 148/56 Blood Pressure [Left] O2 Sat by Pulse 96 88 Oximetry 08/16/17 08/16/17 08/16/17 18:27 18:30 18:45 Temperature Pulse Rate 101 H 101 H Respiratory 27 H 27 H Rate Respiratory Rate [ Generalized] Blood Pressure 116/62 116/62 Blood Pressure [Left] O2 Sat by Pulse 96 Oximetry 08/16/17 08/16/17 08/16/17 19:01 19:15 19:31 Temperature Pulse Rate 102 H 99 H 101 H Respiratory 27 H 21 20 Rate Respiratory Rate [ Generalized] Blood Pressure 111/87 111/87 157/133 Blood Pressure [Left] O2 Sat by Pulse 99 100 Oximetry 08/16/17 08/16/17 08/16/17 19:45 20:00 20:01 Temperature Pulse Rate 98 H 99 H Respiratory 16 24 Rate Respiratory 17 Rate [ Generalized] Blood Pressure 157/133 157/133 Blood Pressure [Left] O2 Sat by Pulse 100 100 Oximetry 08/16/17 08/16/17 08/16/17 20:15 20:30 20:45 Temperature Pulse Rate 100 H 100 H 98 H Respiratory 24 26 H 25 H Rate Respiratory Rate [ Generalized] Blood Pressure 101/56 83/51 83/51 Blood Pressure [Left] O2 Sat by Pulse Oximetry 08/16/17 08/16/17 08/16/17 21:00 21:15 21:30 Temperature Pulse Rate 100 H 98 H 98 H Respiratory 16 24 15 Rate Respiratory Rate [ Generalized] Blood Pressure 93/64 100/59 113/51 Blood Pressure [Left] O2 Sat by Pulse 100 88 94 Oximetry 08/16/17 08/16/17 08/16/17 21:45 22:00 22:01 Temperature Pulse Rate 99 H 89 100 H Respiratory 16 11 L Rate Respiratory 19 Rate [ Generalized] Blood Pressure 104/46 104/46 Blood Pressure [Left] O2 Sat by Pulse 100 100 Oximetry 08/16/17 08/16/17 22:15 22:30 Temperature Pulse Rate 99 H 99 H Respiratory 18 19 Rate Respiratory Rate [ Generalized] Blood Pressure 103/47 101/76 Blood Pressure [Left] O2 Sat by Pulse 99 Oximetry General appearance: Present: mild distress, well-nourished - EENT Eyes: PERRL, EOM intact ENT: hearing intact, clear oral mucosa Ears: bilateral: normal - Neck Neck: supple, normal ROM - Respiratory Respiratory effort: normal Respiratory: bilateral: CTA - Breasts Breasts: deferred - Cardiovascular Rhythm: regular Heart Sounds: Present: S1 & S2. Absent: gallop, rub Extremities: pulses intact, No edema, normal color, Full ROM - Gastrointestinal General gastrointestinal: Present: soft, non-tender, non-distended, normal bowel sounds - Genitourinary Female genitourinary: deferred - Integumentary Integumentary: clear, warm, dry - Musculoskeletal Musculoskeletal: 1, strength equal bilaterally - Neurologic Neurologic: moves all extremities - Psychiatric Psychiatric: memory intact, appropriate mood/affect, intact judgment & insight - Labs CBC & Chem 7: 08/16/17 09:50 08/16/17 09:50 Labs: Abnormal lab results 08/16/17 08/16/17 08/16/17 Range/Units 09:50 09:50 09:50 WBC 31.1 H (4.5-11.0) K/mm3 RBC 3.21 L (3.65-5.03) M/mm3 Hgb 9.6 L (10.1-14.3) gm/dl Hct 29.3 L (30.3-42.9) % RDW 18.1 H (13.2-15.2) % Plt Count 642 H (140-440) K/mm3 Seg Neuts % (Manual) 74.0 H (40.0-70.0) % Lymphocytes % (Manual) 4.0 L (13.4-35.0) % Monocytes % (Manual) 9.0 H (0.0-7.3) % Seg Neutrophils # Man 23.0 H (1.8-7.7) K/mm3 Monocytes # (Manual) 2.8 H (0.0-0.8) K/mm3 Sodium 136 L (137-145) mmol/L Potassium 3.5 L (3.6-5.0) mmol/L Chloride 94.9 L (98-107) mmol/L BUN 28 H (7-17) mg/dL Creatinine 5.5 H (0.7-1.2) mg/dL Glucose 103 H (65-100) mg/dL Alkaline Phosphatase 137 H (35-129) units/L C-Reactive Protein 32.30 H (0.00-1.30) mg/dL Total Protein 5.4 L (6.3-8.2) g/dL Albumin 1.5 L (3.9-5) g/dL
[2017-08-17] MEDS: DIANEAL PD-2 W/1.5% DEXTROSE IP SCH ×4 (02:00→20:49)
--- NOTE | 2017-08-17 02:26 | XRay Report ---
FINAL REPORT PROCEDURE: XR ABDOMEN 1V AP TECHNIQUE: Abdominal radiograph, single supine AP view. HISTORY: Confirm nasogastric tube placement COMPARISON: No prior studies are available for comparison. FINDINGS: Bowel gas pattern:There are distended loops of large and small bowel suggesting generalized ileus.. Masses or calcifications:None. Bony structures:No significant abnormality. Other:There are bilateral ureteral stents in good position. There is an NG tube in the stomach. There is barium contrast in the stomach. There is haziness of the abdomen suggesting ascites. There is no free air.. IMPRESSION: There are distended loops of large and small bowel suggesting generalized ileus.. There are bilateral ureteral stents in good position. There is an NG tube in the stomach. There is barium contrast in the stomach. There is haziness of the abdomen suggesting ascites. There is no free air..
[2017-08-17] MEDS: LEVOPHED 8 MG in NACL 0.9% 250ML 242 ML IV SCH ×3 (02:27→21:31)
[2017-08-17] MEDS: CEPHULAC PO SCH ×3 (06:00→13:31)
--- NOTE | 2017-08-17 06:40 | Progress Note ---
Assessment and Plan - Patient Problems (1) End-stage renal disease on peritoneal dialysis Current Visit: Yes Status: Chronic Plan to address problem: PD is on hold due to hypotension and SBO. Monitor volume status and [employer] needs. Plan to switch to HD saturday. Stop IV fluids. Patient is on TPN. (2) Anemia Current Visit: No Status: Chronic Qualifiers: Anemia type: due to chronic kidney disease Iron deficiency anemia type: I Vitamin B12 deficiency anemia type: V Folate deficiency anemia type: F Bone marrow failure anemia type: B Hemolytic anemia type: H Other causes of anemia: O Chronic kidney disease stage: on chronic dialysis Qualified Code(s ): N18.6 - End stage renal disease; D63.1 - Anemia in chronic kidney disease; Z99.2 - Dependence on renal dialysis Plan to address problem: Epogen. (3) Hypotension Current Visit: Yes Status: Chronic Qualifiers: Hypotension type: H Trimester: T Plan to address problem: On IV levophed and Midodrine. (4) Leukocytosis Current Visit: Yes Status: Acute Qualifiers: Leukocytosis type: unspecified Qualified Code(s): D72.829 - Elevated white blood cell count, unspecified (5) Poor appetite Current Visit: Yes Status: Chronic Plan to address problem: Continue Megace. Subjective Date of service: 08/17/17 Principal diagnosis: /anemia, poor oral intake. Interval history: Patient was seen and examined at the bedside. Objective - Vital Signs Vital signs: Vital Signs - 12hr 08/16/17 08/16/17 08/16/17 18:45 19:01 19:15 Temperature Pulse Rate 101 H 102 H 99 H Respiratory 27 H 27 H 21 Rate Respiratory Rate [ Generalized] Blood Pressure 116/62 111/87 111/87 O2 Sat by Pulse 99 Oximetry 08/16/17 08/16/17 08/16/17 19:31 19:45 20:00 Temperature 98.2 F Pulse Rate 101 H 98 H Respiratory 20 16 Rate Respiratory 17 Rate [ Generalized] Blood Pressure 157/133 157/133 O2 Sat by Pulse 100 100 Oximetry 08/16/17 08/16/17 08/16/17 20:01 20:15 20:30 Temperature Pulse Rate 99 H 100 H 100 H Respiratory 24 24 26 H Rate Respiratory Rate [ Generalized] Blood Pressure 157/133 101/56 83/51 O2 Sat by Pulse 100 Oximetry 08/16/17 08/16/17 08/16/17 20:45 21:00 21:15 Temperature Pulse Rate 98 H 100 H 98 H Respiratory 25 H 16 24 Rate Respiratory Rate [ Generalized] Blood Pressure 83/51 93/64 100/59 O2 Sat by Pulse 100 88 Oximetry 08/16/17 08/16/17 08/16/17 21:30 21:45 22:00 Temperature Pulse Rate 98 H 99 H 89 Respiratory 15 16 Rate Respiratory 19 Rate [ Generalized] Blood Pressure 113/51 104/46 O2 Sat by Pulse 94 100 Oximetry 08/16/17 08/16/17 08/16/17 22:01 22:15 22:30 Temperature Pulse Rate 100 H 99 H 99 H Respiratory 11 L 18 19 Rate Respiratory Rate [ Generalized] Blood Pressure 104/46 103/47 101/76 O2 Sat by Pulse 100 99 Oximetry 08/16/17 08/16/17 08/16/17 22:43 22:45 23:01 Temperature Pulse Rate 99 H 99 H 100 H Respiratory 18 12 15 Rate Respiratory Rate [ Generalized] Blood Pressure 101/76 84/51 81/42 O2 Sat by Pulse 98 100 100 Oximetry 08/16/17 08/16/17 08/16/17 23:15 23:26 23:31 Temperature Pulse Rate 100 H 98 H Respiratory 14 18 15 Rate Respiratory Rate [ Generalized] Blood Pressure 93/44 92/49 O2 Sat by Pulse Oximetry 08/16/17 08/17/17 08/17/17 23:45 00:00 00:15 Temperature 97.7 F Pulse Rate 98 H 98 H 100 H Respiratory 19 24 15 Rate Respiratory Rate [ Generalized] Blood Pressure 101/54 109/58 109/58 O2 Sat by Pulse Oximetry 08/17/17 08/17/17 08/17/17 00:30 00:45 01:01 Temperature Pulse Rate 99 H 102 H 103 H Respiratory 13 21 15 Rate Respiratory Rate [ Generalized] Blood Pressure 95/42 88/47 133/68 O2 Sat by Pulse 96 92 Oximetry 08/17/17 08/17/17 08/17/17 01:15 01:31 01:45 Temperature Pulse Rate 101 H 100 H 102 H Respiratory 20 17 21 Rate Respiratory Rate [ Generalized] Blood Pressure 88/47 157/127 157/127 O2 Sat by Pulse Oximetry 08/17/17 08/17/17 08/17/17 02:01 02:15 02:31 Temperature Pulse Rate 100 H 101 H 100 H Respiratory 21 15 19 Rate Respiratory Rate [ Generalized] Blood Pressure 102/51 99/60 106/32 O2 Sat by Pulse Oximetry 08/17/17 08/17/17 08/17/17 02:45 03:01 03:15 Temperature Pulse Rate 99 H 100 H 99 H Respiratory 19 17 18 Rate Respiratory Rate [ Generalized] Blood Pressure 99/60 85/55 106/32 O2 Sat by Pulse Oximetry 08/17/17 08/17/17 08/17/17 03:31 03:45 04:01 Temperature Pulse Rate 108 H 106 H 105 H Respiratory 24 23 20 Rate Respiratory Rate [ Generalized] Blood Pressure 145/49 170/41 86/46 O2 Sat by Pulse Oximetry 08/17/17 08/17/17 08/17/17 04:15 04:30 04:45 Temperature Pulse Rate 103 H 106 H 102 H Respiratory 21 20 21 Rate Respiratory Rate [ Generalized] Blood Pressure 86/46 92/63 92/63 O2 Sat by Pulse Oximetry 08/17/17 08/17/17 08/17/17 05:01 05:15 05:31 Temperature Pulse Rate 103 H 102 H 102 H Respiratory 22 20 19 Rate Respiratory Rate [ Generalized] Blood Pressure 88/44 86/53 109/64 O2 Sat by Pulse Oximetry 08/17/17 05:45 Temperature Pulse Rate 100 H Respiratory 20 Rate Respiratory Rate [ Generalized] Blood Pressure 88/44 O2 Sat by Pulse Oximetry - General Appearance General appearance: well-developed, appears stated age, obese, other (no distress, on restrains) EENT: ATNC, PERRL, mucous membranes dry Neck: supple Respiratory: Present: Clear to Ascultation Cardiology: regular, S1S2, no murmurs Gastrointestinal: normoactive bowel sounds, no tenderness, obese, other (PD catheter noted) Integumentary: no rash Neurologic: other (lethargic) Musculoskeletal: other (1+ edema of both LEs noted) - Lab 08/16/17 09:50 08/16/17 09:50 Most recent lab results Calcium 8.6 mg/dL (8.4-10.2) 08/16/17 09:50 Phosphorus 4.10 mg/dL (2.5-4.5) 08/16/17 09:50 Magnesium 1.90 mg/dL (1.7-2.3) 08/16/17 09:50
[2017-08-17 07:17] LABS: BUN/Creatinine Ratio 5.66; Calcium 7.5 mg/dL (8.4-10.2); Chloride 97.8 mmol/L (98-107); Magnesium 1.7 mg/dL (1.7-2.3); Phosphorous 3.4 mg/dL (2.5-4.5)
[2017-08-17] MEDS: PROAMATINE PO SCH ×4 (08:12→20:49)
[2017-08-17] MEDS ORDERED: VANCOMYCIN/NS 1 GM/250 ML 1 GM/250 ML BAG IV ONE (10:00)
[2017-08-17] MEDS: DIFLUCAN 200 MG/100 ML BAG IV SCH (10:11)
[2017-08-17] MEDS: PROTONIX IV SCH ×2 (10:12→21:28)
[2017-08-17] MEDS: MEGACE PO SCH ×3 (10:13→21:35)
--- NOTE | 2017-08-17 10:54 | Progress Note ---
Assessment and Plan - Patient Problems (1) SBO (small bowel obstruction) Current Visit: Yes Status: Acute Plan to address problem: 62 y.o. F s/p bariatric surgery over 30years with multiple co-morbidities, now with SBO Pt's condition deteriorated yesterday with being transferred to the CCU and pressors starting last night. CT from yesterday showed SBO without transition point however per radiology report appears to be distal small bowel. Due to patient's increasing leukocytosis and negative cultures currently, concern for abdominal source is present. I discussed the surgical options with the family at bedside including the patient's and daughter. If the patient does not go to the OR her may worsen and could . The family understands she is at great risk during the operation and post operatively due to her current state and numerous co-morbidities. They understand the risks of taking the patient to the operating room agree to proceed with understand the risks of infection, bleeding, injury to surround structures and possible . The patient will be taken to the operating room for exploratory laparotomy, possible bowel resection , possible ostomy, removal of peritoneal dialysis catheter and possible gastrostomy tube placement. The family also understand she will likey stay intubated post operatively. -NG to low wall suction Stat labs: CBC, ABG, coags, updated T/S CKD with prev PD- pt currently on minimal fluids with high NG output. Albumin 25 % ordered. NS @ 100cc ID: continue [email or web address]. diflucan GI proph: PPI Subjective Date of service: 08/17/17 Narrative: Pt seen and examined at bedside. Pt transferred to the CCU yesterday after consistently hypotensive. Pt was started on Levo at 15 overnight to maintain a map of 65. She has become less responsive. NG tube placed last night due to CT findings of sbo. Pt is currently non verbal. Her daughter is at beside. Nair and fem TLC placed yesterday. Ncc/bilious since placement Ivan: minimal output . afebrile NO PD overnight or yesterday. Objective Vital Signs - 12hr 08/16/17 08/16/17 08/16/17 23:01 23:15 23:17 Temperature Pulse Rate 100 H 100 H Pulse Rate [ 89 Apical] Pulse Rate [ 89 From Monitor] Respiratory 15 14 18 Rate Blood Pressure 81/42 93/44 O2 Sat by Pulse 100 Oximetry 08/16/17 08/16/17 08/16/17 23:26 23:31 23:45 Temperature Pulse Rate 98 H 98 H Pulse Rate [ Apical] Pulse Rate [ From Monitor] Respiratory 18 15 19 Rate Blood Pressure 92/49 101/54 O2 Sat by Pulse Oximetry 08/17/17 08/17/17 08/17/17 00:00 00:15 00:30 Temperature 97.7 F Pulse Rate 98 H 100 H 99 H Pulse Rate [ Apical] Pulse Rate [ From Monitor] Respiratory 24 15 13 Rate Blood Pressure 109/58 109/58 95/42 O2 Sat by Pulse 96 Oximetry 08/17/17 08/17/17 08/17/17 00:45 01:01 01:15 Temperature Pulse Rate 102 H 103 H 101 H Pulse Rate [ Apical] Pulse Rate [ From Monitor] Respiratory 21 15 20 Rate Blood Pressure 88/47 133/68 88/47 O2 Sat by Pulse 92 Oximetry 08/17/17 08/17/17 08/17/17 01:31 01:45 02:01 Temperature Pulse Rate 100 H 102 H 100 H Pulse Rate [ Apical] Pulse Rate [ From Monitor] Respiratory 17 21 21 Rate Blood Pressure 157/127 157/127 102/51 O2 Sat by Pulse Oximetry 08/17/17 08/17/17 08/17/17 02:15 02:31 02:45 Temperature Pulse Rate 101 H 100 H 99 H Pulse Rate [ Apical] Pulse Rate [ From Monitor] Respiratory 15 19 19 Rate Blood Pressure 99/60 106/32 99/60 O2 Sat by Pulse Oximetry 08/17/17 08/17/17 08/17/17 03:01 03:15 03:31 Temperature Pulse Rate 100 H 99 H 108 H Pulse Rate [ Apical] Pulse Rate [ From Monitor] Respiratory 17 18 24 Rate Blood Pressure 85/55 106/32 145/49 O2 Sat by Pulse Oximetry 08/17/17 08/17/17 08/17/17 03:45 04:01 04:15 Temperature Pulse Rate 106 H 105 H 103 H Pulse Rate [ Apical] Pulse Rate [ From Monitor] Respiratory 23 20 21 Rate Blood Pressure 170/41 86/46 86/46 O2 Sat by Pulse Oximetry 08/17/17 08/17/17 08/17/17 04:30 04:45 04:48 Temperature Pulse Rate 106 H 102 H Pulse Rate [ 100 H Apical] Pulse Rate [ 100 H From Monitor] Respiratory 20 21 19 Rate Blood Pressure 92/63 92/63 O2 Sat by Pulse Oximetry 08/17/17 08/17/17 08/17/17 05:01 05:15 05:31 Temperature Pulse Rate 103 H 102 H 102 H Pulse Rate [ Apical] Pulse Rate [ From Monitor] Respiratory 22 20 19 Rate Blood Pressure 88/44 86/53 109/64 O2 Sat by Pulse Oximetry 08/17/17 08/17/17 08/17/17 05:45 06:01 06:15 Temperature Pulse Rate 100 H 101 H 105 H Pulse Rate [ Apical] Pulse Rate [ From Monitor] Respiratory 20 21 21 Rate Blood Pressure 88/44 88/44 109/64 O2 Sat by Pulse Oximetry 08/17/17 08/17/17 08/17/17 06:30 06:45 07:00 Temperature Pulse Rate 101 H 101 H 102 H Pulse Rate [ Apical] Pulse Rate [ From Monitor] Respiratory 20 21 21 Rate Blood Pressure 103/55 102/34 106/45 O2 Sat by Pulse Oximetry 08/17/17 08:00 Temperature 98.7 F Pulse Rate Pulse Rate [ Apical] Pulse Rate [ From Monitor] Respiratory Rate Blood Pressure O2 Sat by Pulse Oximetry - General physical appearance moderate pain, obese - Respiratory normal respiratory effort - Abdomen soft, other (soft, obese, PD catheter without drainage. tender RUE epigastric and LUQ, +vol. guarding no rebound. ) - Genitourinary other (+ivan ) - Neurologic disoriented - Psychiatric other (A+Ox 0) - Labs 08/16/17 09:50 08/17/17 05:00 Diabetes panel 08/16/17 08/17/17 Range/Units 09:50 05:00 Sodium 136 L 134 L (137-145) mmol/L Potassium 3.5 L 3.0 L (3.6-5.0) mmol/L Chloride 94.9 L 97.8 L (98-107) mmol/L Carbon Dioxide 24 23 (22-30) mmol/L BUN 28 H 30 H (7-17) mg/dL Creatinine 5.5 H 5.3 H (0.7-1.2) mg/dL Glucose 103 H 147 H (65-100) mg/dL Calcium 8.6 7.5 L (8.4-10.2) mg/dL AST 35 (5-40) units/L ALT 10 (7-56) units/L Alkaline Phosphatase 137 H (35-129) units/L Total Protein 5.4 L (6.3-8.2) g/dL Albumin 1.5 L (3.9-5) g/dL Calcium panel 08/16/17 08/17/17 Range/Units 09:50 05:00 Calcium 8.6 7.5 L (8.4-10.2) mg/dL Phosphorus 4.10 3.40 (2.5-4.5) mg/dL Albumin 1.5 L (3.9-5) g/dL Pituitary panel 08/16/17 08/17/17 Range/Units 09:50 05:00 Sodium 136 L 134 L (137-145) mmol/L Potassium 3.5 L 3.0 L (3.6-5.0) mmol/L Chloride 94.9 L 97.8 L (98-107) mmol/L Carbon Dioxide 24 23 (22-30) mmol/L BUN 28 H 30 H (7-17) mg/dL Creatinine 5.5 H 5.3 H (0.7-1.2) mg/dL Glucose 103 H 147 H (65-100) mg/dL Calcium 8.6 7.5 L (8.4-10.2) mg/dL Adrenal panel 08/16/17 08/17/17 Range/Units 09:50 05:00 Sodium 136 L 134 L (137-145) mmol/L Potassium 3.5 L 3.0 L (3.6-5.0) mmol/L Chloride 94.9 L 97.8 L (98-107) mmol/L Carbon Dioxide 24 23 (22-30) mmol/L BUN 28 H 30 H (7-17) mg/dL Creatinine 5.5 H 5.3 H (0.7-1.2) mg/dL Glucose 103 H 147 H (65-100) mg/dL Calcium 8.6 7.5 L (8.4-10.2) mg/dL Total Bilirubin 0.40 (0.1-1.2) mg/dL AST 35 (5-40) units/L ALT 10 (7-56) units/L Alkaline Phosphatase 137 H (35-129) units/L Total Protein 5.4 L (6.3-8.2) g/dL Albumin 1.5 L (3.9-5) g/dL - Imaging Abdominal x-ray: image reviewed CT scan - abdomen: image reviewed
[2017-08-17] MEDS ORDERED: ALBURX 25% (ALBUMIN) IV ONE (11:00)
[2017-08-17] MEDS ORDERED: NACL 0.9% IV SCH (11:07)
[2017-08-17] MEDS ORDERED: NACL 0.9% 500 ML IV ONE (11:09)
[2017-08-17 11:30] LABS: ISTAT Base Excess 1; ISTAT HCO3 24.5; ISTAT PCO2 34.1 (35-45); ISTAT PH 7.464 (7.35-7.45); ISTAT PO2 75 (80-105); ISTAT SO2 96; ISTAT TCO2 25
[2017-08-17 11:40] LABS: Hematocrit 28.6 % (30.3-42.9); Hemoglobin 9.2 gm/dl (10.1-14.3); Mean Corpuscular HGB Conc 32 % (30-34); Mean Corpuscular Hemoglobin 30 pg (28-32); Mean Corpuscular Volume 92 fl (79-97); Platelet Count 580 K/mm3 (140-440); Red Cell Distribution Width 18.3 % (13.2-15.2)
[2017-08-17 11:42] LABS: White Blood Count 39.1 K/mm3 (4.5-11.0)
[2017-08-17 11:49] LABS: INR 1.29 (0.87-1.13)
[2017-08-17] MEDS ORDERED: WATER FOR IRRIG STERILE IR ONE (11:56)
[2017-08-17] MEDS ORDERED: AMIDATE IV ONE (11:56)
[2017-08-17] MEDS ORDERED: SUBLIMAZE ONE (11:57)
[2017-08-17] MEDS ORDERED: XYLOCAINE MPF 2% ONE (12:00)
[2017-08-17] MEDS ORDERED: ZEMURON IV ONE (12:01)
--- NOTE | 2017-08-17 12:07 | Anesthesia Consultation ---
Anesthesia Consult and Med Hx Date of service: 08/17/17 - Airway Anesthetic Teeth Evaluation: Poor ROM Head & Neck: Inadequate Mental/Hyoid Distance: Adequate - Pre-Operative Health Status ASA Pre-Surgery Classification: ASA4, Emergency Proposed Anesthetic Plan: General - Pre-Anesthesia Comment Pre-Anesthesia Comments: Gonsalo difficult to evaluate, am unable to locate prior intubation notes. Pt is S/P cervical fusion. K is 3.0 this AM. Pt is septic on levophed and midodrine. - Pulmonary Hx Smoking: No Hx Asthma: No Hx Respiratory Symptoms: No SOB: No COPD: Yes (Hx of Acute Respiratory Failure) Hx Pneumonia: No Hx Sleep Apnea: Yes - Cardiovascular System Hx Hypertension: Yes (hypotension recently) Hx Coronary Artery Disease: No Hx Heart Attack/AMI: No Hx Angina: No Hx Percutaneous Transluminal Coronary Angioplasty (PTCA): No Hx Cardia Arrhythmia: No Hx Pacemaker: No Hx Internal Defibrillator: No Hx Valvular Heart Disease: No Hx Heart Murmur: No Hx Peripheral Vascular Disease: No - Central Nervous System Hx Neuromuscular Disorder: Yes (wheelchair bound, cannot move right leg, hypersensitivity in right hand) Hx Seizures: No CVA: No Hx Back Pain: Yes (C4-6 disc disease s/p ACDF and posterior fusion ) Hx Psychiatric Problems: No - Gastrointestinal Hx Ulcer: Yes Hx Gastroesophageal Reflux Disease: No - Endocrine Hx Renal Disease: Yes Hx End Stage Renal Disease: Yes Hx Cirrhosis: No Hx Liver Disease: No Hx Insulin Dependent Diabetes: No Hx Non-Insulin Dependent Diabetes: No Hx Thyroid Disease: No - Hematic Hx Anemia: Yes Hx Sickle Cell Disease: No - Other Systems Hx Alcohol Use: Yes (wine 2 x week) Hx Substance Use: No Hx Cancer: No Hx Obesity: Yes (MORBID, BMI > 40) - Additional Comments Anesthesia Medical History Comments: Sepsis. Echo this admission was essentially normal. Spoke with family and they are aware of severity of situation and that surgery is life saving but also life threatening.
--- NOTE | 2017-08-17 12:08 | Anesthesia Day of Surgery ---
Anesthesia Day of Surgery - Day of Surgery Patient Examined: Yes Patient H&P Reviewed: Yes Patient is NPO: Yes (NG tube is in place.)
[2017-08-17 13:13] LABS: Anisocytosis 1+; Basophils % (Manual) 0.5 % (0.0-1.8); Blastocytes % (Manual) 0 %; Eosinophils % (Manual) 0 % (0.0-4.3)
[2017-08-17 13:14] LABS: Diff Status Complete; Hypochromasia 1+; Macrocytosis Few; Platelet Estimate Consistent w Auto; Target Cells Few
[2017-08-17] MEDS ORDERED: QUELICIN ONE (13:26)
--- NOTE | 2017-08-17 13:46 | Progress Note ---
Assessment and Plan Assessment and plan: Sepstic shock. Patient has become hypotensive and has a worsening leukocytosis. Etiology likely secondary to complicated CAUTI. Blood and Urine cultures pending. Repeat blood culture from 08/12 thus far is negative. Continue Meropenem, vancomycin and Diflucan. Patient was transferred to the ICU and started on Levophed drip. Urinary retention/ ? Infected stents. Urology to coordinate stent exchange next week. Renal us -- no hydro, suggestive in bilat stents Ileus. Delayed gastric emptying. Also, it appears the patient has a gastric pouch that is retaining fluid that is causing her to vomit. GI and surgery following. PICC line was placed for TPN. CT scan of the abdomen and pelvis reveals findings consistent with distal small bowel obstruction. The patient will be taken to the operating room for exploratory laparotomy, possible bowel resection, possible ostomy, removal of peritoneal dialysis catheter and possible gastrostomy tube placement. The family also understands that she will likely stay intubated post operatively. Chronic hypotension - Patient is on IV fluids, IV antibiotics - Cardiology following and echo is normal - Continue Midodrine End-stage renal disease on PD - Patient may need to be converted to hemodialysis for possible PEG or J-tube placement. - Continue PD for now History of cervical surgery and postoperative wheelchair bound since then - pain control Ulcerative esophagitis/small gastric ulcer. Patient status post EGD today. Biopsy pending. UTI on the setting of Indwelling catheter, RLE wound - on Levaquin Protein calorie malnutrition. -patient may need a PEG at some point. Prior to PEG or any abdominal procedures , the patient would need to be trasnitioned to Hemodialysis. I discussed the case with nephrology. Leukocytosis. -Worse - ID following -Follow up CBC. DVT prophylaxis Disposition - Prognosis is extremely guarded. The high probability of a clinically significant, sudden or life threatening deterioration of the [hemodynamic, abdominal] system(s) required my full and direct attention, intervention and personal management. The aggregate critical care time was [32] minutes. This time is in addition to time spent performing reported procedures but includes the following: [x] Data Review and interpretation [x] Patient assessment and monitoring of vital signs [x] Documentation [x] Medication orders and management History Interval history: No new issues overnight. Hospitalist Physical - Constitutional Vitals: Temp Pulse Resp BP Pulse Ox 98.7 F 115 H 27 H 110/51 98 08/17/17 08:00 08/17/17 12:30 08/17/17 12:30 08/17/17 12:30 08/17/17 12:30 General appearance: Present: mild distress, well-nourished - EENT Eyes: Present: PERRL, EOM intact ENT: hearing intact, clear oral mucosa, dentition normal - Neck Neck: Present: supple, normal ROM - Respiratory Respiratory effort: normal Respiratory: bilateral: diminished, rhonchi - Cardiovascular Rhythm: regular Heart Sounds: Present: S1 & S2. Absent: gallop, rub - Extremities Extremities: no ischemia, No edema, Full ROM - Abdominal General gastrointestinal: soft, non-tender, non-distended, normal bowel sounds - Integumentary Integumentary: Present: clear, warm, dry - Neurologic Neurologic: CNII-XII intact, moves all extremities Results - Labs CBC & Chem 7: 08/17/17 11:20 08/17/17 05:00 Labs: Laboratory Last Values WBC 39.1 K/mm3 (4.5-11.0) H 08/17/17 11:20 RBC 3.10 M/mm3 (3.65-5.03) L 08/17/17 11:20 Hgb 9.2 gm/dl (10.1-14.3) L 08/17/17 11:20 Hct 28.6 % (30.3-42.9) L 08/17/17 11:20 MCV 92 fl (79-97) 08/17/17 11:20 MCH 30 pg (28-32) 08/17/17 11:20 MCHC 32 % (30-34) 08/17/17 11:20 RDW 18.3 % (13.2-15.2) H 08/17/17 11:20 Plt Count 580 K/mm3 (140-440) H 08/17/17 11:20 Lymph % (Auto) 7.5 % (13.4-35.0) L 08/11/17 04:00 [place] % (Auto) Molding Sander 08/13/17 06:14 Eos % (Auto) 0.5 % (0.0-4.3) 08/11/17 04:00 Baso % (Auto) 0.4 % (0.0-1.8) 08/11/17 04:00 Lymph # 1.5 K/mm3 (1.2-5.4) 08/11/17 04:00 [place] # 2.8 K/mm3 (0.0-0.8) H 08/11/17 04:00 Eos # 0.1 K/mm3 (0.0-0.4) 08/11/17 04:00 Baso # 0.1 K/mm3 (0.0-0.1) 08/11/17 04:00 Add Manual Diff Complete 08/17/17 11:20 Total Counted 200 08/17/17 11:20 Seg Neutrophils % 77.0 % (40.0-70.0) H 08/11/17 04:00 Seg Neuts % (Manual) 89.5 % (40.0-70.0) H 08/17/17 11:20 Band Neutrophils % 0 % 08/17/17 11:20 Lymphocytes % (Manual) 3.5 % (13.4-35.0) L 08/17/17 11:20 Reactive Lymphs % (Man) 0 % 08/17/17 11:20 Monocytes % (Manual) 6.5 % (0.0-7.3) 08/17/17 11:20 Eosinophils % (Manual) 0 % (0.0-4.3) 08/17/17 11:20 Basophils % (Manual) 0.5 % (0.0-1.8) 08/17/17 11:20 Metamyelocytes % 0 % 08/17/17 11:20 Myelocytes % 0 % 08/17/17 11:20 Promyelocytes % 0 % 08/17/17 11:20 Blast Cells % 0 % 08/17/17 11:20 Nucleated RBC % Not Reportable 08/17/17 11:20 Seg Neutrophils # 14.8 K/mm3 (1.8-7.7) H 08/11/17 04:00 Seg Neutrophils # Man 35.0 K/mm3 (1.8-7.7) H 08/17/17 11:20 Band Neutrophils # 0.0 K/mm3 08/17/17 11:20 Lymphocytes # (Manual) 1.4 K/mm3 (1.2-5.4) 08/17/17 11:20 Abs React Lymphs (Man) 0.0 K/mm3 08/17/17 11:20 Monocytes # (Manual) 2.5 K/mm3 (0.0-0.8) H 08/17/17 11:20 Eosinophils # (Manual) 0.0 K/mm3 (0.0-0.4) 08/17/17 11:20 Basophils # (Manual) 0.2 K/mm3 (0.0-0.1) H 08/17/17 11:20 Metamyelocytes # 0.0 K/mm3 08/17/17 11:20 Myelocytes # 0.0 K/mm3 08/17/17 11:20 Promyelocytes # 0.0 K/mm3 08/17/17 11:20 Blast Cells # 0.0 K/mm3 08/17/17 11:20 WBC Morphology Not Reportable 08/17/17 11:20 Hypersegmented Neuts Not Reportable 08/17/17 11:20 Hyposegmented Neuts Not Reportable 08/17/17 11:20 Hypogranular Neuts Not Reportable 08/17/17 11:20 Smudge Cells Not Reportable 08/17/17 11:20 Toxic Granulation Not Reportable 08/17/17 11:20 Toxic Vacuolation Not Reportable 08/17/17 11:20 Dohle Bodies Not Reportable 08/17/17 11:20 Pelger-Huet Anomaly Not Reportable 08/17/17 11:20 Ariel Rods Not Reportable 08/17/17 11:20 Platelet Estimate Consistent w auto 08/17/17 11:20 Clumped Platelets Not Reportable 08/17/17 11:20 Plt Clumps, EDTA Not Reportable 08/17/17 11:20 Large Platelets Not Reportable 08/17/17 11:20 Giant Platelets Not Reportable 08/17/17 11:20 Platelet Satelliting Not Reportable 08/17/17 11:20 Plt Morphology Comment Not Reportable 08/17/17 11:20 RBC Morphology Not Reportable 08/17/17 11:20 Dimorphic RBCs Not Reportable 08/17/17 11:20 Polychromasia Not Reportable 08/17/17 11:20 Hypochromasia 1+ 08/17/17 11:20 Poikilocytosis Not Reportable 08/17/17 11:20 Anisocytosis 1+ 08/17/17 11:20 Microcytosis Not Reportable 08/17/17 11:20 Macrocytosis Few 08/17/17 11:20 Spherocytes Not Reportable 08/17/17 11:20 Pappenheimer Bodies Not Reportable 08/17/17 11:20 Sickle Cells Not Reportable 08/17/17 11:20 Target Cells Few 08/17/17 11:20 Tear Drop Cells Not Reportable 08/17/17 11:20 Ovalocytes Not Reportable 08/17/17 11:20 Helmet Cells Not Reportable 08/17/17 11:20 [place] Bodies Not Reportable 08/17/17 11:20 [place] Rings Not Reportable 08/17/17 11:20 [place] Cells Not Reportable 08/17/17 11:20 Bite Cells Not Reportable 08/17/17 11:20 Crenated Cell Not Reportable 08/17/17 11:20 Elliptocytes Not Reportable 08/17/17 11:20 Acanthocytes (Spur) Not Reportable 08/17/17 11:20 Rouleaux Not Reportable 08/17/17 11:20 Hemoglobin C Crystals Not Reportable 08/17/17 11:20 Schistocytes Not Reportable 08/17/17 11:20 Malaria parasites Not Reportable 08/17/17 11:20 [place]ovanni Bodies Not Reportable 08/17/17 11:20 Hem Pathologist Commnt No 08/17/17 11:20 PT 16.0 Sec. (12.2-14.9) H 08/17/17 11:20 INR 1.29 (0.87-1.13) H 08/17/17 11:20 APTT 35.5 Sec. (24.2-36.6) 08/12/17 05:50 POC ABG pH 7.464 (7.35-7.45) H 08/17/17 10:56 POC ABG pCO2 34.1 (35-45) L 08/17/17 10:56 POC ABG pO2 75 (80-105) L 08/17/17 10:56 POC ABG HCO3 24.5 08/17/17 10:56 POC ABG Total CO2 25 08/17/17 10:56 POC ABG O2 Sat 96 08/17/17 10:56 POC ABG Base Excess 1 08/17/17 10:56 VBG pH 7.462 (7.320-7.420) H 08/08/17 14:52 FiO2 28 % 08/17/17 10:56 Sodium 134 mmol/L (137-145) L 08/17/17 05:00 Potassium 3.0 mmol/L (3.6-5.0) L 08/17/17 05:00 Chloride 97.8 mmol/L (98-107) L 08/17/17 05:00 Carbon Dioxide 23 mmol/L (22-30) 08/17/17 05:00 Anion Gap 16 mmol/L 08/17/17 05:00 BUN 30 mg/dL (7-17) H 08/17/17 05:00 Creatinine 5.3 mg/dL (0.7-1.2) H 08/17/17 05:00 Estimated GFR 10 ml/min 08/17/17 05:00 BUN/Creatinine Ratio 5.66 % 08/17/17 05:00 Glucose 147 mg/dL (65-100) H 08/17/17 05:00 POC Glucose 165 (70-105) H 08/17/17 06:26 Lactic Acid 1.60 mmol/L (0.7-2.0) 08/17/17 11:20 Calcium 7.5 mg/dL (8.4-10.2) L 08/17/17 05:00 Phosphorus 3.40 mg/dL (2.5-4.5) 08/17/17 05:00 Magnesium 1.70 mg/dL (1.7-2.3) 08/17/17 05:00 Total Bilirubin 0.40 mg/dL (0.1-1.2) 08/16/17 09:50 Direct Bilirubin 0.2 mg/dL (0-0.2) 08/08/17 14:11 Indirect Bilirubin 0.3 mg/dL 08/08/17 14:11 AST 35 units/L (5-40) 08/16/17 09:50 ALT 10 units/L (7-56) 08/16/17 09:50 Alkaline Phosphatase 137 units/L (35-129) H 08/16/17 09:50 Ammonia 25.0 umol/L (25-60) 08/08/17 14:52 Troponin T 0.132 ng/mL (0.00-0.029) H* 08/09/17 13:25 C-Reactive Protein 32.30 mg/dL (0.00-1.30) H 08/16/17 09:50 NT-Pro-B Natriuret Pep 6156 pg/mL (0-900) H 08/08/17 14:11 Total Protein 5.4 g/dL (6.3-8.2) L 08/16/17 09:50 Albumin 1.5 g/dL (3.9-5) L 08/16/17 09:50 Albumin/Globulin Ratio 0.4 % 08/16/17 09:50 Triglycerides 62 mg/dL (2-149) 08/08/17 21:23 Cholesterol 91 mg/dL (50-199) 08/08/17 21:23 LDL Cholesterol Direct 53 mg/dL (50-130) 08/08/17 21:23 HDL Cholesterol 26 mg/dL (40-59) L 08/08/17 21:23 Cholesterol/HDL Ratio 3.50 % 08/08/17 21:23 Amylase 45 units/L (27-131) 08/16/17 09:50 Lipase 34 units/L (13-60) 08/16/17 09:50 TSH 6.580 mlU/mL (0.270-4.200) H 08/08/17 14:22 Free T4 1.46 ng/dL (0.76-1.46) 08/08/17 14:22 Total Cortisol 30.1 mcg/dL () 08/13/17 06:14 Urine Color Yellow (Yellow) 08/08/17 20:15 Urine Turbidity Turbid (Clear) 08/08/17 20:15 Urine pH 8.0 (5.0-7.0) H 08/08/17 20:15 Ur Specific [place] 1.015 (1.003-1.030) 08/08/17 20:15 Urine Protein 100 mg/dl mg/dL (Negative) 08/08/17 20:15 Urine Glucose (UA) Neg mg/dL (Negative) 08/08/17 20:15 Urine Ketones Neg mg/dL (Negative) 08/08/17 20:15 Urine Blood Mod (Negative) 08/08/17 20:15 Urine Nitrite Neg (Negative) 08/08/17 20:15 Urine Bilirubin Neg (Negative) 08/08/17 20:15 Urine Urobilinogen < 2.0 mg/dL (<2.0) 08/08/17 20:15 Ur Leukocyte Esterase Lg (Negative) 08/08/17 20:15 Urine WBC (Auto) 24.0 /HPF (0.0-6.0) H 08/08/17 20:15 Urine RBC (Auto) 3.0 /HPF (0.0-6.0) 08/08/17 20:15 U Epithel Cells (Auto) 3.0 /HPF (0-13.0) 08/08/17 20:15 Urine Bacteria (Auto) 4+ /HPF (Negative) 08/08/17 20:15 Urine Mucus 3+ /HPF 08/08/17 20:15 Fluid Type Peritoneal 08/08/17 18:18 Fluid Color Straw 08/08/17 18:18 Fluid Appearance Clear 08/08/17 18:18 Fluid pH 7.74 08/08/17 18:18 Fluid WBC 4 /mm3 08/08/17 18:18 Fluid RBC 1 /mm3 08/08/17 18:18 Fluid Seg Neutrophils 12 % 08/08/17 18:18 Fluid Lymphocytes 0 % 08/08/17 18:18 Fluid Reactive Lymphs 0 % 08/08/17 18:18 Fluid Monocytes 1 % 08/08/17 18:18 Fluid Eosinophils 0 % 08/08/17 18:18 Fluid Basophils 0 % 08/08/17 18:18 Fluid Glucose 315 mg/dL (40-70) H 08/08/17 18:18 Random Vancomycin 20.5 ug/mL (0-40.0) 08/10/17 04:45 Blood Type O POSITIVE 08/17/17 11:20 Antibody Screen Negative 08/17/17 11:20
[2017-08-17] MEDS ORDERED: LEVAQUIN 750MG/150ML 750 MG/150 ML BAG IV ONE (13:54)
[2017-08-17] MEDS ORDERED: NACL 0.9% 1000 ML 1,000 ML ONE (13:57)
[2017-08-17] MEDS ORDERED: NEO SYNEPHRINE ONE ×2 (14:09→15:28)
[2017-08-17] MEDS ORDERED: NACL 0.9% 100 ML ONE ×2 (14:09→15:28)
[2017-08-17] MEDS ORDERED: METHYLENE BLUE ONE (15:00)
[2017-08-17] MEDS ORDERED: VERSED IV ONE (16:03)
--- NOTE | 2017-08-17 17:08 | Operative Report ---
Operative Report Operative Report: 08/17/17 PROCEDURE: 1. EXPLORATORY LAPAROTOMY 2. GASTROSTOMY TUBE PLACEMENT 3. EGD 4. ABDOMINAL WASH OUT 5. REMOVAL OF PERITONEAL DIALYSIS CATHETER PRE OP DIAGNOSIS: PERITONITIS AND SMALL BOWEL OBSTRUCTION SURGEON: ALEN NOGUERA MD MEDICAL RECORDS SPECIALIST SURGEON: ULISES PEÑA MD ANESTHESIA: GETA COMPLICATIONS: NONE FINDINGS: 1. BOWEL OBSTRUCTION DUE TO BOWEL ENTANGLEMENT OF PD CATH 2. ABSCESS CAVITY IN LUQ BETWEEN STOMACH AND SPLENIC FLEXURE OF THE COLON 3. UNCLEAR LOCATION OF SUSPECTED PERFORATION REMAINDER OF DETAILS OF PROCEDURE IN FORMAL DICTATION DICTATION # [id number]
[2017-08-17] MEDS ORDERED: ARTIFICIAL TEARS OPHTH OINT OU PRN (17:59)
--- NOTE | 2017-08-17 17:59 | Post Anesthesia Evaluation ---
- Post Anesthesia Evaluation Patient Participated: No (sedated) Airway Patent: Yes Stable Respiratory Function: Yes Nausea/Vomiting: No Temp > 96.8F: Yes Pain Manageable: Yes Adequeate Hydration: Yes Anesthesia Complications: No Patient on Ventilator: Yes
[2017-08-17] MEDS ORDERED: NACL 0.9% 500 ML IV SCH (18:00)
[2017-08-17] MEDS: MERREM 1,000 MG in NACL 0.9% 100 ML IV SCH (18:09)
--- NOTE | 2017-08-17 18:51 | XRay Report ---
FINAL REPORT EXAM: XR CHEST 1V AP HISTORY: ETT placement TECHNIQUE: Single-view chest PRIORS: None. FINDINGS: Sequelae from ACDF are noted. There is an endotracheal to with tip at the level of heads of the clavicles. Enteric tube courses to the stomach. Right internal jugular central venous catheter courses to the level of the superior vena cava. There are surgical clips over upper abdomen. Lung volumes are diminished. No focal consolidations are seen in the lungs. Heart size is exaggerated by diminished lung volumes. No acute osseous abnormality is identified. IMPRESSION: 1. Support devices are noted as described above. 2. Diminished lung volumes.
[2017-08-17] MEDS ORDERED: NACL 0.9% 500 ML 500 ML IV ONE (19:04)
[2017-08-17] MEDS: D5/0.45NS 1,000 ML IV SCH (19:47)
[2017-08-17] MEDS ORDERED: TPN ADULT 1,800 ML IV SCH (20:00)
--- NOTE | 2017-08-17 20:30 | Operative Report ---
SURGEON: Dr. Carla Chamorro M.D. COUNSELING SERVICES MANAGER: Dr. Tracy Marley PROCEDURE PERFORMED: 1. Exploratory laparotomy. 2. Gastrostomy tube placement. 3. Abdominal washout. 4. Removal of peritoneal dialysis catheter. 5. EGD. ANESTHESIA: General with endotracheal tube intubation. SPECIMENS: None. COMPLICATIONS: None. FINDINGS: An abscess cavity in the left upper quadrant between the stomach and the colon and her PD catheter in the right lower quadrant that was wrapped around her appendix causing a small bowel obstruction. PREOPERATIVE DIAGNOSES: Small bowel obstruction and peritonitis. POSTOPERATIVE DIAGNOSES: Small bowel obstruction due to twisting around PD catheter and peritonitis, likely due to a gastric perforation. INDICATIONS: The patient is a 62-year-old female with a history of vertical banded gastroplasty over 30 years ago, chronic renal failure, paraplegia, chronic hypotension, and chronic nausea and vomiting, who presented to the Emergency Room over a week ago where she was admitted to Medicine Service. I was consulted approximately 5-6 days after admission due to an EGD performed by GI showing an abnormal anatomy of her stomach, likely due to some sort of surgical intervention. Approximately 24-48 hours after being consulted, she was demonstrating signs of bowel obstruction versus ileus and a progressively increasing leukocytosis, but was unclear etiology due to the fact that she has ureteral stents and a PD catheter, but she never mounted a white count or showed signs of significant tachycardia. However, over the last 24 hours, her tachycardia worsened. An NG tube was placed because she was having bilious vomiting and her white count increased to almost 40,000. At this time, it was decided to take her emergently for exploratory laparotomy to find the cause of her symptoms. Her signed informed consent. DESCRIPTION OF PROCEDURE: The patient was brought into OR suite and laid in supine position. She has a footdrop boot on her right foot. SCD was placed on her left leg. General anesthesia was induced via successful endotracheal tube intubation. The patient's abdomen was then prepped and draped in sterile fashion. Access was gained into the abdominal cavity with a midline incision that started infraumbilical where she had no adhesions. It was carefully guided up to the xiphoid process and extended all the way down to the pubic symphysis to get total access to her abdominal cavity. The small bowel was ran and was noted to be collapsed ileum at the level of the appendix and the cecum. Her PD catheter was noted to be tightly interwoven between the loops of bowel and appeared to be the likely cause of the obstruction. The PD catheter was removed. The entire bowel was run from the terminal ileum to the ligament of Treitz. There were no other causes of obstruction. The peritoneal fluid was noted to be clear also upon entering the abdominal cavity. We gained access to the stomach and there was noted to be some dark fluid with an abscess in the left upper quadrant between the stomach and the colon consistent with barium. It was not bilious in nature. This was irrigated out. An EGD was performed to try to localize the location of the perforation or hole; however, none could be found even after submerging the stomach under saline and insufflating air. There were no bubbles. This area was just irrigated out and a drain was left in the left upper quadrant exited out of the right side. A gastrostomy tube was placed via a gastrotomy at the antrum. A percutaneous tube was placed through that gastrotomy and exited out of the left side. The gastrotomy was closed in 2 layer running closure using Vicryl followed by silk. Before the end of the case, there was noted to be transit of air and contents into the colon confirming that the bowel obstruction was relieved. The abdomen was then closed with 2 #1 PDS with interrupted Ethibond for internal retention sutures. The skin was closed with kelli followed by sterile dressing. The skin incision where the PD catheter was removed was packed with iodoform gauze. The patient remained extubated and she was taken to recovery to return to the ICU in stable condition. All counts were correct. JOB# [id number] MARTHA/ISMAEL
[2017-08-17 20:33] LABS: Hemoglobin 8.4 gm/dl (10.1-14.3); Mean Corpuscular HGB Conc 32 % (30-34); Mean Corpuscular Hemoglobin 30 pg (28-32); Mean Corpuscular Volume 93 fl (79-97); Platelet Count 455 K/mm3 (140-440); Red Blood Count 2.81 M/mm3 (3.65-5.03); Red Cell Distribution Width 17.8 % (13.2-15.2)
[2017-08-17 20:43] LABS: White Blood Count 34.4 K/mm3 (4.5-11.0)
[2017-08-17 20:52] LABS: Albumin 1.6 g/dL (3.9-5); Albumin/Globulin Ratio 0.7 %; BUN/Creatinine Ratio 5.92; Bilirubin,Total 0.4 mg/dL (0.1-1.2); Calcium 7.5 mg/dL (8.4-10.2); Magnesium 1.5 mg/dL (1.7-2.3)
[2017-08-17 21:01] LABS: Potassium 2.9 mmol/L (3.6-5.0)
[2017-08-17 21:11] LABS: ISTAT Base Excess -2; ISTAT HCO3 20.5; ISTAT PCO2 23.1 (35-45); ISTAT PH 7.557 (7.35-7.45); ISTAT PO2 187 (80-105); ISTAT SO2 100; ISTAT TCO2 21
[2017-08-17 21:31] LABS: Basophils % (Manual) 0 % (0.0-1.8); Blastocytes % (Manual) 0 %; Eosinophils % (Manual) 0 % (0.0-4.3); Total Cells Counted Percent 4.5
[2017-08-17 21:32] LABS: Anisocytosis 1+; Giant Platelets Few; Hypochromasia 2+
[2017-08-17 21:33] LABS: Large Platelets Few; Ovalocytes Few; Platelet Estimate Consistent w Auto
[2017-08-17 21:34] LABS: Diff Status Complete
[2017-08-17] MEDS: KCL 20MEQ/100ML 20 MEQ/100 ML BAG IV SCH ×2 (21:34→22:31)
[2017-08-17 21:35] LABS: Polychromasia 1+
[2017-08-17 21:37] LABS: Target Cells 1+
--- NOTE | 2017-08-17 23:13 | Progress Note ---
Assessment and Plan - Patient Problems (1) End-stage renal disease on peritoneal dialysis Current Visit: Yes Status: Chronic Plan to address problem: continue PD Follow renal. S/p PD catheter placement. (2) Leukocytosis Current Visit: Yes Status: Acute Qualifiers: Leukocytosis type: L Plan to address problem: See notes above. make sure that PD access is clean also. see notes. Probably infection/reactive. (3) Anemia Current Visit: Yes Status: Acute Qualifiers: Anemia type: A Iron deficiency anemia type: I Vitamin B12 deficiency anemia type: V Folate deficiency anemia type: F Bone marrow failure anemia type: B Hemolytic anemia type: H Other causes of anemia: O Chronic kidney disease stage: C Plan to address problem: see notes , monitor labs,. Subjective Date of service: 08/17/17 Principal diagnosis: /anemia, poor oral intake. Interval history: Patient seen today/examined, labs reviewed, case d/w she, and family.complaints of abdominal pain. Patient resting in bed in the ICU, post vascular procedure. labs reviewed, Reactive thrombocytosis, anemia of CD, leukocytosis from infection vs inflamatory process. Patient seen/examined, in bed in the ICU, on the vent post surgery.Labs reviewed , notes reviewed. will continue to monitor labs/patient with you. Replacement transfusion, if /when indicated. Objective - Constitutional Vitals: Vital Signs - 12hr 08/17/17 08/17/17 08/17/17 11:15 11:30 11:45 Temperature Pulse Rate 110 H 112 H 112 H Respiratory 20 23 27 H Rate Blood Pressure 119/61 124/67 124/67 O2 Sat by Pulse 94 99 Oximetry 08/17/17 08/17/17 08/17/17 12:00 12:15 12:30 Temperature Pulse Rate 111 H 115 H 115 H Respiratory 26 H 17 27 H Rate Blood Pressure 125/65 125/65 110/51 O2 Sat by Pulse 98 Oximetry 08/17/17 08/17/17 08/17/17 17:00 17:05 17:10 Temperature 97.1 F L Pulse Rate 87 88 111 H Respiratory 18 18 18 Rate Blood Pressure 83/65 83/65 88/47 O2 Sat by Pulse 95 95 95 Oximetry 08/17/17 08/17/17 08/17/17 17:15 17:30 17:45 Temperature Pulse Rate 85 88 88 Respiratory 18 18 18 Rate Blood Pressure 98/72 95/72 90/52 O2 Sat by Pulse 95 97 97 Oximetry 08/17/17 08/17/17 08/17/17 18:00 18:15 18:17 Temperature Pulse Rate 88 88 Respiratory 18 18 Rate Blood Pressure 92/47 88/47 O2 Sat by Pulse 97 97 94 Oximetry 08/17/17 08/17/17 08/17/17 18:25 18:31 19:12 Temperature Pulse Rate 97 H 107 H 104 H Respiratory 18 Rate Blood Pressure 84/33 92/15 130/61 O2 Sat by Pulse 97 26 L 97 Oximetry 08/17/17 20:00 Temperature 98.7 F Pulse Rate Respiratory Rate Blood Pressure O2 Sat by Pulse Oximetry General appearance: Present: mild distress, well-nourished, obese - EENT Eyes: PERRL, EOM intact ENT: hearing intact, clear oral mucosa Ears: bilateral: normal - Neck Neck: supple, normal ROM - Respiratory Respiratory: bilateral: diminished (on vent) - Breasts Breasts: deferred - Cardiovascular Rhythm: regular Heart Sounds: Present: S1 & S2. Absent: gallop, rub Extremities: pulses intact, No edema, normal color, Full ROM - Gastrointestinal General gastrointestinal: Present: soft, non-tender, non-distended, normal bowel sounds - Genitourinary Female genitourinary: deferred - Integumentary Integumentary: clear, warm, dry - Labs CBC & Chem 7: 08/17/17 20:20 08/17/17 16:57 Labs: Abnormal lab results 08/17/17 08/17/17 08/17/17 Range/Units 05:00 06:26 10:56 WBC (4.5-11.0) K/mm3 RBC (3.65-5.03) M/mm3 Hgb (10.1-14.3) gm/dl Hct (30.3-42.9) % RDW (13.2-15.2) % Plt Count (140-440) K/mm3 Seg Neuts % (Manual) (40.0-70.0) % Lymphocytes % (Manual) (13.4-35.0) % Nucleated RBC % (0.0-0.9) % Seg Neutrophils # Man (1.8-7.7) K/mm3 Monocytes # (Manual) (0.0-0.8) K/mm3 Basophils # (Manual) (0.0-0.1) K/mm3 PT (12.2-14.9) Sec. INR (0.87-1.13) POC ABG pH 7.464 H (7.35-7.45) POC ABG pCO2 34.1 L (35-45) POC ABG pO2 75 L (80-105) Sodium 134 L (137-145) mmol/L Potassium 3.0 L (3.6-5.0) mmol/L Chloride 97.8 L (98-107) mmol/L Carbon Dioxide (22-30) mmol/L BUN 30 H (7-17) mg/dL Creatinine 5.3 H (0.7-1.2) mg/dL Glucose 147 H (65-100) mg/dL POC Glucose 165 H (70-105) Calcium 7.5 L (8.4-10.2) mg/dL Magnesium (1.7-2.3) mg/dL AST (5-40) units/L Total Protein (6.3-8.2) g/dL Albumin (3.9-5) g/dL 08/17/17 08/17/17 08/17/17 Range/Units 11:20 11:20 16:57 WBC 39.1 H (4.5-11.0) K/mm3 RBC 3.10 L (3.65-5.03) M/mm3 Hgb 9.2 L (10.1-14.3) gm/dl Hct 28.6 L (30.3-42.9) % RDW 18.3 H (13.2-15.2) % Plt Count 580 H (140-440) K/mm3 Seg Neuts % (Manual) 89.5 H (40.0-70.0) % Lymphocytes % (Manual) 3.5 L (13.4-35.0) % Nucleated RBC % (0.0-0.9) % Seg Neutrophils # Man 35.0 H (1.8-7.7) K/mm3 Monocytes # (Manual) 2.5 H (0.0-0.8) K/mm3 Basophils # (Manual) 0.2 H (0.0-0.1) K/mm3 PT 16.0 H (12.2-14.9) Sec. INR 1.29 H (0.87-1.13) POC ABG pH (7.35-7.45) POC ABG pCO2 (35-45) POC ABG pO2 (80-105) Sodium 135 L (137-145) mmol/L Potassium 2.9 L* (3.6-5.0) mmol/L Chloride (98-107) mmol/L Carbon Dioxide 20 L (22-30) mmol/L BUN 32 H (7-17) mg/dL Creatinine 5.4 H (0.7-1.2) mg/dL Glucose 129 H (65-100) mg/dL POC Glucose (70-105) Calcium 7.5 L (8.4-10.2) mg/dL Magnesium 1.50 L (1.7-2.3) mg/dL AST 85 H (5-40) units/L Total Protein 4.0 L D (6.3-8.2) g/dL Albumin 1.6 L (3.9-5) g/dL 08/17/17 08/17/17 Range/Units 20:20 20:54 WBC 34.4 H (4.5-11.0) K/mm3 RBC 2.81 L (3.65-5.03) M/mm3 Hgb 8.4 L (10.1-14.3) gm/dl Hct 26.0 L (30.3-42.9) % RDW 17.8 H (13.2-15.2) % Plt Count 455 H (140-440) K/mm3 Seg Neuts % (Manual) (40.0-70.0) % Lymphocytes % (Manual) 3.5 L (13.4-35.0) % Nucleated RBC % 5.0 H (0.0-0.9) % Seg Neutrophils # Man 16.5 H (1.8-7.7) K/mm3 Monocytes # (Manual) 1.0 H (0.0-0.8) K/mm3 Basophils # (Manual) (0.0-0.1) K/mm3 PT (12.2-14.9) Sec. INR (0.87-1.13) POC ABG pH 7.557 H (7.35-7.45) POC ABG pCO2 23.1 L (35-45) POC ABG pO2 187 H (80-105) Sodium (137-145) mmol/L Potassium (3.6-5.0) mmol/L Chloride (98-107) mmol/L Carbon Dioxide (22-30) mmol/L BUN (7-17) mg/dL Creatinine (0.7-1.2) mg/dL Glucose (65-100) mg/dL POC Glucose (70-105) Calcium (8.4-10.2) mg/dL Magnesium (1.7-2.3) mg/dL AST (5-40) units/L Total Protein (6.3-8.2) g/dL Albumin (3.9-5) g/dL
[2017-08-18] MEDS: CEPHULAC PO SCH ×4 (00:08→17:02)
[2017-08-18] MEDS: DIANEAL PD-2 W/1.5% DEXTROSE IP SCH ×4 (01:54→20:57)
[2017-08-18] MEDS: D5/0.45NS 1,000 ML IV SCH (03:52)
[2017-08-18 05:09] LABS: ISTAT Base Excess -6; ISTAT HCO3 18.7; ISTAT PH 7.418 (7.35-7.45); ISTAT PO2 148 (80-105); ISTAT SITE 1; ISTAT SO2 99; ISTAT TCO2 20
[2017-08-18 06:37] LABS: Hematocrit 26.5 % (30.3-42.9); Hemoglobin 8.4 gm/dl (10.1-14.3); Mean Corpuscular HGB Conc 32 % (30-34); Mean Corpuscular Hemoglobin 30 pg (28-32); Mean Corpuscular Volume 93 fl (79-97); Platelet Count 476 K/mm3 (140-440); Red Blood Count 2.84 M/mm3 (3.65-5.03)
[2017-08-18 06:53] LABS: BUN/Creatinine Ratio 6.07; Calcium 7.8 mg/dL (8.4-10.2); Chloride 101.3 mmol/L (98-107); Magnesium 1.6 mg/dL (1.7-2.3); Phosphorous 1.9 mg/dL (2.5-4.5); Potassium 3.9 mmol/L (3.6-5.0)
[2017-08-18] MEDS ORDERED: MAGNESIUM SULFATE 1 GM in NACL 0.9% 50 ML IV ONE (07:29)
[2017-08-18] MEDS ORDERED: SODIUM PHOSPHATE 15 MMOL in NACL 0.9% 250ML 250 ML IV ONE (07:29)
--- NOTE | 2017-08-18 07:34 | Progress Note ---
Assessment and Plan - Patient Problems (1) End-stage renal disease on peritoneal dialysis Current Visit: Yes Status: Chronic Plan to address problem: s/p removal of PD catheter. Plan to insert tunnel catheter tomorrow. Patient is on TPN. (2) Anemia Current Visit: No Status: Chronic Qualifiers: Anemia type: due to chronic kidney disease Iron deficiency anemia type: I Vitamin B12 deficiency anemia type: V Folate deficiency anemia type: F Bone marrow failure anemia type: B Hemolytic anemia type: H Other causes of anemia: O Chronic kidney disease stage: on chronic dialysis Qualified Code(s ): N18.6 - End stage renal disease; D63.1 - Anemia in chronic kidney disease; Z99.2 - Dependence on renal dialysis Plan to address problem: Epogen. (3) Hypotension Current Visit: Yes Status: Chronic Qualifiers: Hypotension type: H Trimester: T Plan to address problem: On IV levophed and Midodrine. (4) Leukocytosis Current Visit: Yes Status: Acute Qualifiers: Leukocytosis type: unspecified Qualified Code(s): D72.829 - Elevated white blood cell count, unspecified Plan to address problem: Followed by ID and Heme-Onc. Suspected peritonitis. S/p removal of PD catheter. (5) Poor appetite Current Visit: Yes Status: Chronic Plan to address problem: Continue Megace. Subjective Date of service: 08/18/17 Principal diagnosis: /anemia, poor oral intake. Interval history: Patient was seen and examined at the bedside. Objective - Vital Signs Vital signs: Vital Signs - 12hr 08/17/17 08/17/17 08/17/17 19:45 20:00 20:15 Temperature 98.7 F Pulse Rate 98 H 99 H 104 H Respiratory 18 18 18 Rate Blood Pressure 130/58 128/71 128/71 O2 Sat by Pulse 100 Oximetry 08/17/17 08/17/17 08/17/17 20:30 20:45 21:00 Temperature Pulse Rate 100 H 101 H 98 H Respiratory 19 16 16 Rate Blood Pressure 136/77 136/77 131/76 O2 Sat by Pulse Oximetry 08/17/17 08/17/17 08/17/17 21:15 21:30 21:45 Temperature Pulse Rate 100 H 104 H 98 H Respiratory 19 18 21 Rate Blood Pressure 136/77 123/63 123/63 O2 Sat by Pulse Oximetry 0908/17/17 08/17/17 22:00 22:15 22:30 Temperature Pulse Rate 103 H 101 H 102 H Respiratory 21 22 15 Rate Blood Pressure 116/76 116/76 118/65 O2 Sat by Pulse Oximetry 08/17/17 08/17/17 08/17/17 22:45 23:00 23:07 Temperature Pulse Rate 99 H 99 H 101 H Respiratory 18 20 Rate Blood Pressure 118/65 111/60 111/60 O2 Sat by Pulse 98 Oximetry 08/17/17 08/17/17 08/17/17 23:15 23:30 23:45 Temperature Pulse Rate 97 H 99 H 99 H Respiratory 22 17 22 Rate Blood Pressure 118/65 97/44 97/44 O2 Sat by Pulse Oximetry 08/18/17 08/18/17 08/18/17 00:00 00:01 00:15 Temperature 98.9 F Pulse Rate 99 H 99 H Respiratory 21 29 H Rate Blood Pressure 108/62 108/62 O2 Sat by Pulse 100 100 Oximetry 08/18/17 08/18/17 08/18/17 00:30 00:45 01:00 Temperature Pulse Rate 100 H 99 H 100 H Respiratory 22 22 18 Rate Blood Pressure 124/58 124/58 122/64 O2 Sat by Pulse 100 Oximetry 08/18/17 08/18/17 08/18/17 01:15 01:31 01:45 Temperature Pulse Rate 101 H 101 H 100 H Respiratory 27 H 23 20 Rate Blood Pressure 122/64 100/46 100/46 O2 Sat by Pulse 100 Oximetry 08/18/17 08/18/17 08/18/17 02:01 02:15 02:30 Temperature Pulse Rate 102 H 102 H 103 H Respiratory 22 24 28 H Rate Blood Pressure 109/67 109/67 107/77 O2 Sat by Pulse 92 Oximetry 08/18/17 08/18/17 08/18/17 02:45 03:01 03:15 Temperature Pulse Rate 103 H 103 H 103 H Respiratory 27 H 26 H 26 H Rate Blood Pressure 107/77 112/74 112/74 O2 Sat by Pulse 66 L Oximetry 08/18/17 08/18/17 08/18/17 03:28 03:30 03:45 Temperature Pulse Rate 105 H 103 H 105 H Respiratory 26 H 26 H Rate Blood Pressure 122/68 122/68 122/68 O2 Sat by Pulse 100 89 83 L Oximetry 08/18/17 08/18/17 08/18/17 04:00 04:15 04:31 Temperature 99.6 F Pulse Rate 103 H 106 H 106 H Respiratory 28 H 25 H 21 Rate Blood Pressure 126/72 126/72 84/26 O2 Sat by Pulse 97 100 Oximetry 08/18/17 08/18/17 08/18/17 04:45 05:01 05:15 Temperature Pulse Rate 105 H 106 H 103 H Respiratory 26 H 22 29 H Rate Blood Pressure 84/26 121/101 121/101 O2 Sat by Pulse Oximetry 08/18/17 08/18/17 08/18/17 05:31 05:45 06:01 Temperature Pulse Rate 106 H 105 H 107 H Respiratory 29 H 31 H 22 Rate Blood Pressure 96/49 96/49 O2 Sat by Pulse Oximetry 08/18/17 06:15 Temperature Pulse Rate 110 H Respiratory 27 H Rate Blood Pressure 110/72 O2 Sat by Pulse Oximetry - General Appearance General appearance: well-developed, appears stated age, obese, intubated, other (somnolent) EENT: ATNC, PERRL Neck: supple Respiratory: Present: Clear to Ascultation Cardiology: regular, S1S2, no murmurs Gastrointestinal: normoactive bowel sounds, other (PEG tube and drain noted) Integumentary: other (right leg wound) Neurologic: other (not following any command) Musculoskeletal: other (trace pedal edema noted) - Lab 08/18/17 Unknown 08/18/17 Unknown Most recent lab results Calcium 7.8 mg/dL (8.4-10.2) L 08/18/17 Unknown Phosphorus 1.90 mg/dL (2.5-4.5) L D 08/18/17 Unknown Magnesium 1.60 mg/dL (1.7-2.3) L 08/18/17 Unknown
[2017-08-18] MEDS: PROAMATINE PO SCH ×2 (08:23→13:20)
[2017-08-18] MEDS: LEVOPHED 8 MG in NACL 0.9% 250ML 242 ML IV SCH ×2 (08:24→21:02)
[2017-08-18 08:25] LABS: Basophils % (Manual) 0 % (0.0-1.8); Blastocytes % (Manual) 0 %; Eosinophils % (Manual) 0 % (0.0-4.3)
[2017-08-18 08:26] LABS: Anisocytosis 1+; Hypochromasia 1+; Ovalocytes Few; Target Cells 1+
[2017-08-18 08:27] LABS: Giant Platelets Few; Polychromasia 1+
[2017-08-18 08:28] LABS: Platelet Estimate Consistent w Auto; Smudge Cells Few
[2017-08-18 08:38] LABS: Diff Status Complete
[2017-08-18] MEDS: MORPHINE IV PRN ×2 (08:45→12:18)
[2017-08-18] MEDS: PROTONIX IV SCH (09:06)
[2017-08-18] MEDS: MEGACE PO SCH ×3 (09:06→17:02)
[2017-08-18] MEDS: DIFLUCAN 200 MG/100 ML BAG IV SCH (09:14)
[2017-08-18] MEDS ORDERED: METHYLENE BLUE IRRIGATION ONE (10:00)
--- NOTE | 2017-08-18 10:23 | XRay Report ---
Single view chest: Compared to 08/17/17. History: Followup of respiratory failure. Findings: Cardiomegaly. Stable support system. Linear density right lower lobe without significant interval change. Impression: No significant interval change.
--- NOTE | 2017-08-18 10:43 | Progress Note ---
Assessment and Plan overall stable and afebrile, with better mentation SBO: POD#1 s/p exlap with removal of PD cath as cause of bowel obstruction Gastric perforation: POD #1 s/p ex lap with no definitive localization of perforation, but evidence seen as there was an abscess cavity with barium. Today the MERVIN drain was suspicious for continued active perforation and confirmed with methylene blue that was injected into the NG tube and seen in the MERVIN drain. The high output likely due to the fact that the G-tube was clamped, and she was getting medications injected into the NG tube. Perforation is small as was not seen during surgery, despite aggressive interrogation with water and air test. With adequate intra-luminal decompression with G-tube that should remained open to gravity at all times, and nothing through the NGT that should remain in suction, the perforation should seal again. will continue to monitor out put. continue abx, and anti-fungals. chronic renal failure: scheduled to get vas cath tomorrow, will defer to renal and critical care for fluid management and dialysis respiratory insufficiency: wean the vent as tolerated per critical care and respiratory - Patient Problems (1) SBO (small bowel obstruction) Current Visit: Yes Status: Acute Subjective Date of service: 08/18/17 Narrative: over night patient more neurologically responsive, has not passed a CPAP trial for extubation. She follows commands with her hands. Objective Vital Signs - 12hr 08/17/17 08/17/17 08/17/17 22:45 23:00 23:07 Temperature Pulse Rate 99 H 99 H 101 H Respiratory 18 20 Rate Blood Pressure 118/65 111/60 111/60 O2 Sat by Pulse 98 Oximetry 08/17/17 08/17/17 08/17/17 23:15 23:30 23:45 Temperature Pulse Rate 97 H 99 H 99 H Respiratory 22 17 22 Rate Blood Pressure 118/65 97/44 97/44 O2 Sat by Pulse Oximetry 08/18/17 08/18/17 08/18/17 00:00 00:01 00:15 Temperature 98.9 F Pulse Rate 99 H 99 H Respiratory 21 29 H Rate Blood Pressure 108/62 108/62 O2 Sat by Pulse 100 100 Oximetry 08/18/17 08/18/17 08/18/17 00:30 00:45 01:00 Temperature Pulse Rate 100 H 99 H 100 H Respiratory 22 22 18 Rate Blood Pressure 124/58 124/58 122/64 O2 Sat by Pulse 100 Oximetry 08/18/17 08/18/17 08/18/17 01:15 01:31 01:45 Temperature Pulse Rate 101 H 101 H 100 H Respiratory 27 H 23 20 Rate Blood Pressure 122/64 100/46 100/46 O2 Sat by Pulse 100 Oximetry 08/18/17 08/18/17 08/18/17 02:01 02:15 02:30 Temperature Pulse Rate 102 H 102 H 103 H Respiratory 22 24 28 H Rate Blood Pressure 109/67 109/67 107/77 O2 Sat by Pulse 92 Oximetry 08/18/17 08/18/17 08/18/17 02:45 03:01 03:15 Temperature Pulse Rate 103 H 103 H 103 H Respiratory 27 H 26 H 26 H Rate Blood Pressure 107/77 112/74 112/74 O2 Sat by Pulse 66 L Oximetry 08/18/17 08/18/17 08/18/17 03:28 03:30 03:45 Temperature Pulse Rate 105 H 103 H 105 H Respiratory 26 H 26 H Rate Blood Pressure 122/68 122/68 122/68 O2 Sat by Pulse 100 89 83 L Oximetry 08/18/17 08/18/17 08/18/17 04:00 04:15 04:31 Temperature 99.6 F Pulse Rate 103 H 106 H 106 H Respiratory 28 H 25 H 21 Rate Blood Pressure 126/72 126/72 84/26 O2 Sat by Pulse 97 100 Oximetry 08/18/17 08/18/17 08/18/17 04:45 05:01 05:15 Temperature Pulse Rate 105 H 106 H 103 H Respiratory 26 H 22 29 H Rate Blood Pressure 84/26 121/101 121/101 O2 Sat by Pulse Oximetry 08/18/17 08/18/17 08/18/17 05:31 05:45 06:01 Temperature Pulse Rate 106 H 105 H 107 H Respiratory 29 H 31 H 22 Rate Blood Pressure 96/49 96/49 O2 Sat by Pulse Oximetry 08/18/17 08/18/17 08/18/17 06:15 06:31 06:45 Temperature Pulse Rate 110 H 106 H 105 H Respiratory 27 H 37 H 34 H Rate Blood Pressure 110/72 75/34 75/34 O2 Sat by Pulse Oximetry 08/18/17 08/18/17 08/18/17 07:01 07:15 07:31 Temperature Pulse Rate 106 H 106 H 105 H Respiratory 33 H 31 H 31 H Rate Blood Pressure 106/65 106/65 106/65 O2 Sat by Pulse 93 Oximetry 08/18/17 08/18/17 08/18/17 07:45 07:57 08:00 Temperature 97.9 F Pulse Rate 104 H 104 H Respiratory 19 29 H Rate Blood Pressure 118/61 118/61 O2 Sat by Pulse Oximetry 08/18/17 08/18/17 08/18/17 08:15 08:20 08:30 Temperature Pulse Rate 104 H 105 H 105 H Respiratory 27 H 25 H Rate Blood Pressure 124/52 123/57 O2 Sat by Pulse 96 85 Oximetry 08/18/17 08/18/17 08/18/17 08:45 09:01 09:15 Temperature Pulse Rate 103 H 103 H 102 H Respiratory 25 H 31 H 27 H Rate Blood Pressure 123/57 123/57 123/57 O2 Sat by Pulse 92 92 Oximetry 08/18/17 09:30 Temperature Pulse Rate 101 H Respiratory 26 H Rate Blood Pressure 107/78 O2 Sat by Pulse Oximetry - General physical appearance well developed, well nourished, no distress, obese - Respiratory other (intubated) - Abdomen soft, other (g-tube in place with bilious fluid. MERVIN drain with bilous tinged sero-sanguinous fluid. incision c/d/i) - Labs 08/18/17 Unknown 08/18/17 Unknown Diabetes panel 08/17/17 08/18/17 Range/Units 16:57 Unknown Sodium 135 L 137 (137-145) mmol/L Potassium 2.9 L* 3.9 D (3.6-5.0) mmol/L Chloride 101.0 101.3 (98-107) mmol/L Carbon Dioxide 20 L 19 L (22-30) mmol/L BUN 32 H 34 H (7-17) mg/dL Creatinine 5.4 H 5.6 H (0.7-1.2) mg/dL Glucose 129 H 201 H (65-100) mg/dL Calcium 7.5 L 7.8 L (8.4-10.2) mg/dL AST 85 H (5-40) units/L ALT 17 (7-56) units/L Alkaline Phosphatase 96 (35-129) units/L Total Protein 4.0 L D (6.3-8.2) g/dL Albumin 1.6 L (3.9-5) g/dL Calcium panel 08/17/17 08/18/17 Range/Units 16:57 Unknown Calcium 7.5 L 7.8 L (8.4-10.2) mg/dL Phosphorus 3.00 1.90 L D (2.5-4.5) mg/dL Albumin 1.6 L (3.9-5) g/dL Pituitary panel 08/17/17 08/18/17 Range/Units 16:57 Unknown Sodium 135 L 137 (137-145) mmol/L Potassium 2.9 L* 3.9 D (3.6-5.0) mmol/L Chloride 101.0 101.3 (98-107) mmol/L Carbon Dioxide 20 L 19 L (22-30) mmol/L BUN 32 H 34 H (7-17) mg/dL Creatinine 5.4 H 5.6 H (0.7-1.2) mg/dL Glucose 129 H 201 H (65-100) mg/dL Calcium 7.5 L 7.8 L (8.4-10.2) mg/dL Adrenal panel 08/17/17 08/18/17 Range/Units 16:57 Unknown Sodium 135 L 137 (137-145) mmol/L Potassium 2.9 L* 3.9 D (3.6-5.0) mmol/L Chloride 101.0 101.3 (98-107) mmol/L Carbon Dioxide 20 L 19 L (22-30) mmol/L BUN 32 H 34 H (7-17) mg/dL Creatinine 5.4 H 5.6 H (0.7-1.2) mg/dL Glucose 129 H 201 H (65-100) mg/dL Calcium 7.5 L 7.8 L (8.4-10.2) mg/dL Total Bilirubin 0.40 (0.1-1.2) mg/dL AST 85 H (5-40) units/L ALT 17 (7-56) units/L Alkaline Phosphatase 96 (35-129) units/L Total Protein 4.0 L D (6.3-8.2) g/dL Albumin 1.6 L (3.9-5) g/dL
--- NOTE | 2017-08-18 11:46 | Progress Note ---
Assessment and Plan Assessment: 1) Sepsis with septic shock: worsening leukocytosis; source bowel obstruction / suspect perforation. -CRP=28-->32 2) Bowel obstruction / suspect perforation -S/P Exlap, G-tube placement, EGD, abdominal washout and removal of PD -OR findings - bowel obstruction due to entanglement of PD cath, abscess cavity in LUQ and ? suspect perforation of unclear location 3) CA-UTI: chronic ivan exchanged every 4 weeks and ureteral stents in place which are exchanged every 6 months ? urine cultures still pending should r/o MDR bacteria 4) Paraplegia 5) ESRD on PD - no evidence of peritonitis, wbc count 2. [employer] and Diphteroids on peritoneal fluid likely contaminants. 6) Recent pancreatitis 7) Penicillin allergy-has taken keflex w/o problems Plan: -continue meropenem day 6, fluconazole day 3 and vancomycin day 3 -f/u procalcitonin -monitor leukocytosis -plan for tunneled cath placement for HD tomorrow -poor prognosis Thank you Dr Chen for your consultation, will follow up with you. Ramya Lang MD Infectious Diseases Specialist [facility] [phone] O [phone] Subjective Date of service: 08/18/17 Principal diagnosis: /anemia, poor oral intake. Interval history: Remains critically ill, intubated on the vent, on levophed at 12 mcg/min. No fever. Microbiology: Blood cultures: 08/08 neg 08/12 neg 08/16 ngtd Urine cultures: 08/08 10-100K skin grace Respiratory cultures: Wound cultures: Stool cultures: Other: 08/08 peritoneal fluid + [employer]/Diphteroids Current Antimicrobials: 08/13 meropenem Previous Antimicrobials: 08/10 levaquin Objective - Exam Narrative Exam: General appearance: sedated on the vent in NAD Eyes: anicteric sclerae, moist conjunctivae; no lid-lag; PERRLA HENT: Atraumatic;+ ETT Neck: Trachea midline; supple, no thyromegaly or lymphadenopathy Lungs: coarse BS moreno CV: RRR, no murmurs Abdomen: soft, midline surgical wound with a drain covered with surg dressings Extremities: + peripheral edema + leg ulcer Skin: Normal temperature, turgor and texture; no rash, ulcers or subcutaneous nodules Psych: sedated. Neuro: sedated Lines: femoral line / Right IJ Nair 08/16 - Constitutional Vitals: Vital Signs Temp Pulse Resp BP Pulse Ox 97.9 F 104 H 27 H 109/34 97 08/18/17 07:57 08/18/17 10:58 08/18/17 10:45 08/18/17 10:58 08/18/17 10:58 Temperature -Last 24 Hours Temperature 97.9 F Temperature 99.6 F Temperature 98.9 F Temperature 98.7 F Temperature 97.1 F - Labs CBC & Chem 7: 08/18/17 Unknown 08/18/17 Unknown Labs: Abnormal lab results 08/17/17 08/17/17 08/17/17 Range/Units 11:20 11:20 16:57 WBC 39.1 H (4.5-11.0) K/mm3 RBC 3.10 L (3.65-5.03) M/mm3 Hgb 9.2 L (10.1-14.3) gm/dl Hct 28.6 L (30.3-42.9) % RDW 18.3 H (13.2-15.2) % Plt Count 580 H (140-440) K/mm3 Seg Neuts % (Manual) 89.5 H (40.0-70.0) % Lymphocytes % (Manual) 3.5 L (13.4-35.0) % Monocytes % (Manual) (0.0-7.3) % Nucleated RBC % (0.0-0.9) % Seg Neutrophils # Man 35.0 H (1.8-7.7) K/mm3 Monocytes # (Manual) 2.5 H (0.0-0.8) K/mm3 Basophils # (Manual) 0.2 H (0.0-0.1) K/mm3 PT 16.0 H (12.2-14.9) Sec. INR 1.29 H (0.87-1.13) POC ABG pH (7.35-7.45) POC ABG pCO2 (35-45) POC ABG pO2 (80-105) Sodium 135 L (137-145) mmol/L Potassium 2.9 L* (3.6-5.0) mmol/L Carbon Dioxide 20 L (22-30) mmol/L BUN 32 H (7-17) mg/dL Creatinine 5.4 H (0.7-1.2) mg/dL Glucose 129 H (65-100) mg/dL POC Glucose (70-105) Calcium 7.5 L (8.4-10.2) mg/dL Phosphorus (2.5-4.5) mg/dL Magnesium 1.50 L (1.7-2.3) mg/dL AST 85 H (5-40) units/L Total Protein 4.0 L D (6.3-8.2) g/dL Albumin 1.6 L (3.9-5) g/dL 08/17/17 08/17/17 08/17/17 Range/Units 20:20 20:54 23:47 WBC 34.4 H (4.5-11.0) K/mm3 RBC 2.81 L (3.65-5.03) M/mm3 Hgb 8.4 L (10.1-14.3) gm/dl Hct 26.0 L (30.3-42.9) % RDW 17.8 H (13.2-15.2) % Plt Count 455 H (140-440) K/mm3 Seg Neuts % (Manual) (40.0-70.0) % Lymphocytes % (Manual) 3.5 L (13.4-35.0) % Monocytes % (Manual) (0.0-7.3) % Nucleated RBC % 5.0 H (0.0-0.9) % Seg Neutrophils # Man 16.5 H (1.8-7.7) K/mm3 Monocytes # (Manual) 1.0 H (0.0-0.8) K/mm3 Basophils # (Manual) (0.0-0.1) K/mm3 PT (12.2-14.9) Sec. INR (0.87-1.13) POC ABG pH 7.557 H (7.35-7.45) POC ABG pCO2 23.1 L (35-45) POC ABG pO2 187 H (80-105) Sodium (137-145) mmol/L Potassium (3.6-5.0) mmol/L Carbon Dioxide (22-30) mmol/L BUN (7-17) mg/dL Creatinine (0.7-1.2) mg/dL Glucose (65-100) mg/dL POC Glucose 188 H (70-105) Calcium (8.4-10.2) mg/dL Phosphorus (2.5-4.5) mg/dL Magnesium (1.7-2.3) mg/dL AST (5-40) units/L Total Protein (6.3-8.2) g/dL Albumin (3.9-5) g/dL 08/18/17 08/18/17 08/18/17 Range/Units 04:26 05:51 Unknown WBC (4.5-11.0) K/mm3 RBC (3.65-5.03) M/mm3 Hgb (10.1-14.3) gm/dl Hct (30.3-42.9) % RDW (13.2-15.2) % Plt Count (140-440) K/mm3 Seg Neuts % (Manual) (40.0-70.0) % Lymphocytes % (Manual) (13.4-35.0) % Monocytes % (Manual) (0.0-7.3) % Nucleated RBC % (0.0-0.9) % Seg Neutrophils # Man (1.8-7.7) K/mm3 Monocytes # (Manual) (0.0-0.8) K/mm3 Basophils # (Manual) (0.0-0.1) K/mm3 PT (12.2-14.9) Sec. INR (0.87-1.13) POC ABG pH (7.35-7.45) POC ABG pCO2 29.0 L (35-45) POC ABG pO2 148 H (80-105) Sodium (137-145) mmol/L Potassium (3.6-5.0) mmol/L Carbon Dioxide 19 L (22-30) mmol/L BUN 34 H (7-17) mg/dL Creatinine 5.6 H (0.7-1.2) mg/dL Glucose 201 H (65-100) mg/dL POC Glucose 202 H (70-105) Calcium 7.8 L (8.4-10.2) mg/dL Phosphorus 1.90 L D (2.5-4.5) mg/dL Magnesium 1.60 L (1.7-2.3) mg/dL AST (5-40) units/L Total Protein (6.3-8.2) g/dL Albumin (3.9-5) g/dL 08/18/17 Range/Units Unknown WBC 39.0 H (4.5-11.0) K/mm3 RBC 2.84 L (3.65-5.03) M/mm3 Hgb 8.4 L (10.1-14.3) gm/dl Hct 26.5 L (30.3-42.9) % RDW 18.0 H (13.2-15.2) % Plt Count 476 H (140-440) K/mm3 Seg Neuts % (Manual) (40.0-70.0) % Lymphocytes % (Manual) 7.0 L (13.4-35.0) % Monocytes % (Manual) 10.0 H (0.0-7.3) % Nucleated RBC % 3.0 H (0.0-0.9) % Seg Neutrophils # Man 15.6 H (1.8-7.7) K/mm3 Monocytes # (Manual) 3.9 H (0.0-0.8) K/mm3 Basophils # (Manual) (0.0-0.1) K/mm3 PT (12.2-14.9) Sec. INR (0.87-1.13) POC ABG pH (7.35-7.45) POC ABG pCO2 (35-45) POC ABG pO2 (80-105) Sodium (137-145) mmol/L Potassium (3.6-5.0) mmol/L Carbon Dioxide (22-30) mmol/L BUN (7-17) mg/dL Creatinine (0.7-1.2) mg/dL Glucose (65-100) mg/dL POC Glucose (70-105) Calcium (8.4-10.2) mg/dL Phosphorus (2.5-4.5) mg/dL Magnesium (1.7-2.3) mg/dL AST (5-40) units/L Total Protein (6.3-8.2) g/dL Albumin (3.9-5) g/dL
--- NOTE | 2017-08-18 11:53 | Progress Note ---
Assessment and Plan Assessment and plan: Septic shock. Patient with abdominal abscess and CAUTI. ID following. Continue antibiotics per ID. Continue MERVIN drain for surgery. Urinary retention/ ? Infected stents. Urology to coordinate stent exchange next week. Renal us -- no hydro, suggestive in bilat stents Bowel obstruction. Patient is status post exploratory lap with removal of PD catheter as a cause of obstruction. There was no definitive localization of perforation. However, there was an abscess cavity with barium. Sepsis associated hypotension and chronic hypotension - Continue IV fluid and pressors to maintain MAP> 65 - Cardiology following and echo is normal End-stage renal disease -Patient is scheduled for Vas-Cath placement tomorrow. Resume hemodialysis per nephrology. Ulcerative esophagitis/small gastric ulcer. Patient status post EGD. Biopsy pending. CAUTI. Continue antibiotics Protein calorie malnutrition. -Continue TPN. Leukocytosis. -Worse - ID following -Follow up CBC. History of cervical surgery and postoperative wheelchair bound since then - pain control DVT prophylaxis Disposition - Prognosis is extremely guarded. The high probability of a clinically significant, sudden or life threatening deterioration of the [hemodynamic, abdominal] system(s) required my full and direct attention, intervention and personal management. The aggregate critical care time was [32] minutes. This time is in addition to time spent performing reported procedures but includes the following: [x] Data Review and interpretation [x] Patient assessment and monitoring of vital signs [x] Documentation [x] Medication orders and management History Interval history: No new issues overnight. Hospitalist Physical - Constitutional Vitals: Temp Pulse Resp BP Pulse Ox 97.9 F 104 H 27 H 109/34 97 08/18/17 07:57 08/18/17 10:58 08/18/17 10:45 08/18/17 10:58 08/18/17 10:58 General appearance: Present: mild distress, well-nourished, obese - EENT Eyes: Present: PERRL, EOM intact ENT: hearing intact, clear oral mucosa, dentition normal - Neck Neck: Present: supple, normal ROM - Respiratory Respiratory effort: normal Respiratory: bilateral: CTA - Cardiovascular Rhythm: regular Heart Sounds: Present: S1 & S2. Absent: gallop, rub - Extremities Extremities: no ischemia, No edema, Full ROM - Abdominal General gastrointestinal: soft, non-tender, non-distended, normal bowel sounds - Integumentary Integumentary: Present: clear, warm, dry - Neurologic Neurologic: CNII-XII intact, moves all extremities Results - Labs CBC & Chem 7: 08/18/17 Unknown 08/18/17 Unknown Labs: Laboratory Last Values WBC 39.0 K/mm3 (4.5-11.0) H 08/18/17 Unknown RBC 2.84 M/mm3 (3.65-5.03) L 08/18/17 Unknown Hgb 8.4 gm/dl (10.1-14.3) L 08/18/17 Unknown Hct 26.5 % (30.3-42.9) L 08/18/17 Unknown MCV 93 fl (79-97) 08/18/17 Unknown MCH 30 pg (28-32) 08/18/17 Unknown MCHC 32 % (30-34) 08/18/17 Unknown RDW 18.0 % (13.2-15.2) H 08/18/17 Unknown Plt Count 476 K/mm3 (140-440) H 08/18/17 Unknown Lymph % (Auto) 7.5 % (13.4-35.0) L 08/11/17 04:00 [place] % (Auto) Milk Condenser 08/13/17 06:14 Eos % (Auto) 0.5 % (0.0-4.3) 08/11/17 04:00 Baso % (Auto) 0.4 % (0.0-1.8) 08/11/17 04:00 Lymph # 1.5 K/mm3 (1.2-5.4) 08/11/17 04:00 [place] # 2.8 K/mm3 (0.0-0.8) H 08/11/17 04:00 Eos # 0.1 K/mm3 (0.0-0.4) 08/11/17 04:00 Baso # 0.1 K/mm3 (0.0-0.1) 08/11/17 04:00 Add Manual Diff Complete 08/18/17 Unknown Total Counted 100 08/18/17 Unknown Seg Neutrophils % 77.0 % (40.0-70.0) H 08/11/17 04:00 Seg Neuts % (Manual) 40.0 % (40.0-70.0) 08/18/17 Unknown Band Neutrophils % 36.0 % 08/18/17 Unknown Lymphocytes % (Manual) 7.0 % (13.4-35.0) L 08/18/17 Unknown Reactive Lymphs % (Man) 0 % 08/18/17 Unknown Monocytes % (Manual) 10.0 % (0.0-7.3) H 08/18/17 Unknown Eosinophils % (Manual) 0 % (0.0-4.3) 08/18/17 Unknown Basophils % (Manual) 0 % (0.0-1.8) 08/18/17 Unknown Metamyelocytes % 7.0 % 08/18/17 Unknown Myelocytes % 0 % 08/18/17 Unknown Promyelocytes % 0 % 08/18/17 Unknown Blast Cells % 0 % 08/18/17 Unknown Nucleated RBC % 3.0 % (0.0-0.9) H 08/18/17 Unknown Seg Neutrophils # 14.8 K/mm3 (1.8-7.7) H 08/11/17 04:00 Seg Neutrophils # Man 15.6 K/mm3 (1.8-7.7) H 08/18/17 Unknown Band Neutrophils # 14.0 K/mm3 08/18/17 Unknown Lymphocytes # (Manual) 2.7 K/mm3 (1.2-5.4) 08/18/17 Unknown Abs React Lymphs (Man) 0.0 K/mm3 08/18/17 Unknown Monocytes # (Manual) 3.9 K/mm3 (0.0-0.8) H 08/18/17 Unknown Eosinophils # (Manual) 0.0 K/mm3 (0.0-0.4) 08/18/17 Unknown Basophils # (Manual) 0.0 K/mm3 (0.0-0.1) 08/18/17 Unknown Metamyelocytes # 2.7 K/mm3 08/18/17 Unknown Myelocytes # 0.0 K/mm3 08/18/17 Unknown Promyelocytes # 0.0 K/mm3 08/18/17 Unknown Blast Cells # 0.0 K/mm3 08/18/17 Unknown WBC Morphology Not Reportable 08/18/17 Unknown Hypersegmented Neuts Not Reportable 08/18/17 Unknown Hyposegmented Neuts Not Reportable 08/18/17 Unknown Hypogranular Neuts Not Reportable 08/18/17 Unknown Smudge Cells Few 08/18/17 Unknown Toxic Granulation Not Reportable 08/18/17 Unknown Toxic Vacuolation Not Reportable 08/18/17 Unknown Dohle Bodies Not Reportable 08/18/17 Unknown Pelger-Huet Anomaly Not Reportable 08/18/17 Unknown Ariel Rods Not Reportable 08/18/17 Unknown Platelet Estimate Consistent w auto 08/18/17 Unknown Clumped Platelets Not Reportable 08/18/17 Unknown Plt Clumps, EDTA Not Reportable 08/18/17 Unknown Large Platelets Not Reportable 08/18/17 Unknown Giant Platelets Few 08/18/17 Unknown Platelet Satelliting Not Reportable 08/18/17 Unknown Plt Morphology Comment Not Reportable 08/18/17 Unknown RBC Morphology Not Reportable 08/18/17 Unknown Dimorphic RBCs Not Reportable 08/18/17 Unknown Polychromasia 1+ 08/18/17 Unknown Hypochromasia 1+ 08/18/17 Unknown Poikilocytosis Not Reportable 08/18/17 Unknown Anisocytosis 1+ 08/18/17 Unknown Microcytosis Not Reportable 08/18/17 Unknown Macrocytosis Not Reportable 08/18/17 Unknown Spherocytes Not Reportable 08/18/17 Unknown Pappenheimer Bodies Not Reportable 08/18/17 Unknown Sickle Cells Not Reportable 08/18/17 Unknown Target Cells 1+ 08/18/17 Unknown Tear Drop Cells Not Reportable 08/18/17 Unknown Ovalocytes Few 08/18/17 Unknown Helmet Cells Not Reportable 08/18/17 Unknown Vera-Laurium Bodies Not Reportable 08/18/17 Unknown Catarina Rings Not Reportable 08/18/17 Unknown [place] Cells Not Reportable 08/18/17 Unknown Bite Cells Not Reportable 08/18/17 Unknown Crenated Cell Not Reportable 08/18/17 Unknown Elliptocytes Not Reportable 08/18/17 Unknown Acanthocytes (Spur) Not Reportable 08/18/17 Unknown Rouleaux Not Reportable 08/18/17 Unknown Hemoglobin C Crystals Not Reportable 08/18/17 Unknown Schistocytes Not Reportable 08/18/17 Unknown Malaria parasites Not Reportable 08/18/17 Unknown Jovanni Bodies Not Reportable 08/18/17 Unknown Hem Pathologist Commnt No 08/18/17 Unknown PT 16.0 Sec. (12.2-14.9) H 08/17/17 11:20 INR 1.29 (0.87-1.13) H 08/17/17 11:20 APTT 35.5 Sec. (24.2-36.6) 08/12/17 05:50 POC ABG pH 7.418 (7.35-7.45) 08/18/17 04:26 POC ABG pCO2 29.0 (35-45) L 08/18/17 04:26 POC ABG pO2 148 (80-105) H 08/18/17 04:26 POC ABG HCO3 18.7 08/18/17 04:26 POC ABG Total CO2 20 08/18/17 04:26 POC ABG O2 Sat 99 08/18/17 04:26 POC ABG Base Excess -6 08/18/17 04:26 VBG pH 7.462 (7.320-7.420) H 08/08/17 14:52 FiO2 50 % 08/18/17 04:26 Sodium 137 mmol/L (137-145) 08/18/17 Unknown Potassium 3.9 mmol/L (3.6-5.0) D 08/18/17 Unknown Chloride 101.3 mmol/L (98-107) 08/18/17 Unknown Carbon Dioxide 19 mmol/L (22-30) L 08/18/17 Unknown Anion Gap 21 mmol/L 08/18/17 Unknown BUN 34 mg/dL (7-17) H 08/18/17 Unknown Creatinine 5.6 mg/dL (0.7-1.2) H 08/18/17 Unknown Estimated GFR 9 ml/min 08/18/17 Unknown BUN/Creatinine Ratio 6.07 % 08/18/17 Unknown Glucose 201 mg/dL (65-100) H 08/18/17 Unknown POC Glucose 202 (70-105) H 08/18/17 05:51 Lactic Acid 1.60 mmol/L (0.7-2.0) 08/17/17 11:20 Calcium 7.8 mg/dL (8.4-10.2) L 08/18/17 Unknown Phosphorus 1.90 mg/dL (2.5-4.5) L D 08/18/17 Unknown Magnesium 1.60 mg/dL (1.7-2.3) L 08/18/17 Unknown Total Bilirubin 0.40 mg/dL (0.1-1.2) 08/17/17 16:57 Direct Bilirubin 0.2 mg/dL (0-0.2) 08/08/17 14:11 Indirect Bilirubin 0.3 mg/dL 08/08/17 14:11 AST 85 units/L (5-40) H 08/17/17 16:57 ALT 17 units/L (7-56) 08/17/17 16:57 Alkaline Phosphatase 96 units/L (35-129) 08/17/17 16:57 Ammonia 25.0 umol/L (25-60) 08/08/17 14:52 Troponin T 0.132 ng/mL (0.00-0.029) H* 08/09/17 13:25 C-Reactive Protein 32.30 mg/dL (0.00-1.30) H 08/16/17 09:50 NT-Pro-B Natriuret Pep 6156 pg/mL (0-900) H 08/08/17 14:11 Total Protein 4.0 g/dL (6.3-8.2) L D 08/17/17 16:57 Albumin 1.6 g/dL (3.9-5) L 08/17/17 16:57 Albumin/Globulin Ratio 0.7 % 08/17/17 16:57 Triglycerides 62 mg/dL (2-149) 08/08/17 21:23 Cholesterol 91 mg/dL (50-199) 08/08/17 21:23 LDL Cholesterol Direct 53 mg/dL (50-130) 08/08/17 21:23 HDL Cholesterol 26 mg/dL (40-59) L 08/08/17 21:23 Cholesterol/HDL Ratio 3.50 % 08/08/17 21:23 Amylase 45 units/L (27-131) 08/16/17 09:50 Lipase 34 units/L (13-60) 08/16/17 09:50 TSH 6.580 mlU/mL (0.270-4.200) H 08/08/17 14:22 Free T4 1.46 ng/dL (0.76-1.46) 08/08/17 14:22 Total Cortisol 30.1 mcg/dL () 08/13/17 06:14 Urine Color Yellow (Yellow) 08/08/17 20:15 Urine Turbidity Turbid (Clear) 08/08/17 20:15 Urine pH 8.0 (5.0-7.0) H 08/08/17 20:15 Ur Specific [place] 1.015 (1.003-1.030) 08/08/17 20:15 Urine Protein 100 mg/dl mg/dL (Negative) 08/08/17 20:15 Urine Glucose (UA) Neg mg/dL (Negative) 08/08/17 20:15 Urine Ketones Neg mg/dL (Negative) 08/08/17 20:15 Urine Blood Mod (Negative) 08/08/17 20:15 Urine Nitrite Neg (Negative) 08/08/17 20:15 Urine Bilirubin Neg (Negative) 08/08/17 20:15 Urine Urobilinogen < 2.0 mg/dL (<2.0) 08/08/17 20:15 Ur Leukocyte Esterase Lg (Negative) 08/08/17 20:15 Urine WBC (Auto) 24.0 /HPF (0.0-6.0) H 08/08/17 20:15 Urine RBC (Auto) 3.0 /HPF (0.0-6.0) 08/08/17 20:15 U Epithel Cells (Auto) 3.0 /HPF (0-13.0) 08/08/17 20:15 Urine Bacteria (Auto) 4+ /HPF (Negative) 08/08/17 20:15 Urine Mucus 3+ /HPF 08/08/17 20:15 Fluid Type Peritoneal 08/08/17 18:18 Fluid Color Straw 08/08/17 18:18 Fluid Appearance Clear 08/08/17 18:18 Fluid pH 7.74 08/08/17 18:18 Fluid WBC 4 /mm3 08/08/17 18:18 Fluid RBC 1 /mm3 08/08/17 18:18 Fluid Seg Neutrophils 12 % 08/08/17 18:18 Fluid Lymphocytes 0 % 08/08/17 18:18 Fluid Reactive Lymphs 0 % 08/08/17 18:18 Fluid Monocytes 1 % 08/08/17 18:18 Fluid Eosinophils 0 % 08/08/17 18:18 Fluid Basophils 0 % 08/08/17 18:18 Fluid Glucose 315 mg/dL (40-70) H 08/08/17 18:18 Random Vancomycin 20.5 ug/mL (0-40.0) 08/10/17 04:45 Blood Type O POSITIVE 08/17/17 11:20 Antibody Screen Negative 08/17/17 11:20
[2017-08-18] MEDS ORDERED: NACL 0.9% 1000 ML 1,000 ML IV ONE ×2 (12:02→12:06)
[2017-08-18] MEDS ORDERED: NACL 0.9% 1000 ML 1,000 ML IV PRN ×2 (12:07→12:21)
[2017-08-18] MEDS ORDERED: fentaNYL DRIP Premix 2,000 MCG/100 ML BAG IV SCH (13:00)
[2017-08-18] MEDS: MERREM 1,000 MG in NACL 0.9% 100 ML IV SCH (13:29)
[2017-08-18] MEDS: HEPARIN SUB-Q SCH (13:32)
--- NOTE | 2017-08-18 13:58 | Consultation ---
History of Present Illness Consult date: 08/18/17 Reason for consult: other (postoperative respiratory failure) History of present illness: Mrs. Wise is a 62-year-old FE [place]an female with history of end-stage renal disease on peritoneal dialysis apparently developed this gastric perforation underwent surgery yesterday postoperatively she is intubated and being mechanically ventilated. Patient unable to provide any history although history has been obtained from the chart. Patient also hypotensive and currently on vasopressors. There is evidence of sepsis with elevated white cell count. She is on multiple antibiotic per ID she is also on TPN Past History Past Medical History: arthritis, ESRD, heart failure, hypertension, other ( chronic Pain, Obesity, hx of hypotension) Past Surgical History: cholecystectomy, total knee replacement, Other (Neck surgery, Gastric surgery-1980s possible bariatric ) Social history: , lives with family, other (wheelchair bound. at home able to be mobile in her wheelchair ). denies: smoking, alcohol abuse, prescription drug abuse, IV drug use Family history: CAD, hypertension Medications and Allergies Allergies Allergy/AdvReac Type Severity Reaction Status Date / Time Penicillins Allergy Shortness Verified 09/07/13 07:21 of Breath Home Medications Medication Instructions Recorded Confirmed Last Taken Type Cyclobenzaprine [Flexeril 10 MG 10 mg PO BID 09/07/13 08/09/17 07/29/17 History TAB] HYDROcodone/ACETAMINOPHEN 1 tab PO BID PRN 09/07/13 08/09/17 07/30/17 History [Hydrocodone-Acetaminophnen(Nf) 10/500 mg Tab] buPROPion [Wellbutrin] 150 mg PO DAILY 07/06/14 08/09/17 1 Week Ago History Calcitriol [Rocaltrol] 1 mcg PO QDAY 08/09/17 08/09/17 07/30/17 History FLUoxetine [PROzac] 40 mg PO QDAY 08/09/17 08/09/17 1 Week Ago History Pantoprazole [Protonix] 40 mg PO QDAY 08/09/17 08/09/17 07/30/17 History Potassium Chloride 40 meq PO BID 08/09/17 08/09/17 07/30/17 History Kori-Milka Rx Tablet 1 mg PO 4XD 08/09/17 08/09/17 08/09/17 15:58 History Active Meds: Active Medications Al Hydrox/Mg Hydrox/Simethicone (Alum-Mag Hydrox-Simeth [id number]) 15 ml PO Q4H PRN PRN Reason: Indigestion Last Admin: 08/09/17 23:37 Dose: 15 ml Heparin Sodium (Porcine) (Heparin) 5,000 unit SUB-Q Q8HR GLORIA Last Admin: 08/18/17 13:32 Dose: 5,000 unit Hydrophilic Ointment (Vaseline Lip Therapy) 1 applic TP DIRECT PRN PRN Reason: DRY LIPS Meropenem 1,000 mg/ Sodium (Chloride) 100 mls @ 100 mls/hr IV Q24H GLORIA Last Admin: 08/18/17 13:29 Dose: 100 mls/hr Norepinephrine 8 mg/ Sodium (Chloride) 250 mls @ 3.75 mls/hr IV TITR GLORIA; 2 MCG /MIN PRN Reason: Protocol Last Admin: 08/18/17 08:24 Dose: 15 mcg/min, 28.12 mls/hr Fluconazole (Diflucan) 200 mg in 100 mls @ 100 mls/hr IV Q24HR GLORIA PRN Reason: Protocol Last Admin: 08/18/17 09:14 Dose: 100 mls/hr Amino Acids/Electrolytes/Dextrose (Tpn Adult) 1,800 mls @ 75 mls/hr IV DAILY@ 2000 GLORIA PRN Reason: Protocol Stop: 08/18/17 19:59 Last Admin: 08/17/17 21:27 Dose: 75 mls/hr Amino Acids/Electrolytes/Dextrose (Tpn Adult) 1,800 mls @ 75 mls/hr IV DAILY@ 2000 GLORIA PRN Reason: Protocol Stop: 08/19/17 19:59 Sodium Chloride (Nacl 0.9% 1000 Ml) 1,000 mls @ 999 mls/hr IV ONCE PRN PRN Reason: Blood Pressure Stop: 08/18/17 23:59 Last Admin: 08/18/17 13:35 Dose: 999 mls/hr Sodium Chloride (Nacl 0.9% 1000 Ml) 1,000 mls @ 999 mls/hr IV ONCE PRN PRN Reason: Blood Pressure Stop: 08/18/17 23:59 Fentanyl Citrate (Fentanyl Drip Premix) 2,000 mcg in 100 mls @ 6.28 mls/hr IV TITR GLORIA; 1 MCG/KG/HR PRN Reason: Protocol Lactulose (Cephulac) 20 gm PO Q6HR [facility] Last Admin: 08/18/17 11:04 Dose: Not Given Megestrol Acetate (Megace) 80 mg PO QID [facility] Last Admin: 08/18/17 09:06 Dose: Not Given Midodrine (Proamatine) 10 mg PO TID [facility] Last Admin: 08/18/17 13:20 Dose: Not Given Morphine Sulfate (Morphine) 2 mg IV Q3H PRN PRN Reason: Pain, Moderate (4-6) Last Admin: 08/18/17 12:18 Dose: 2 mg Multi-Ingred Cream/Lotion/Oil/Oint (Artificial Tears Ophth Oint) 1 applic OU Q4H PRN PRN Reason: Dry Eye(s) Ondansetron HCl (Zofran) 4 mg IV Q6H PRN PRN Reason: Nausea And Vomiting Last Admin: 08/16/17 22:50 Dose: 4 mg Pantoprazole Sodium (Protonix) 40 mg IV BID [facility] Last Admin: 08/18/17 09:06 Dose: 40 mg Peritoneal Dialysis Solution (Dianeal Pd-2 W/1.5% Dextrose) 2,000 ml IP Q6H [facility] Last Admin: 08/18/17 13:20 Dose: Not Given Sodium Chloride (Nacl 0.9% 500 Ml) 1 ml IV DIRECT [facility] Vancomycin HCl (Vancomycin Pharmacy To Dose) 1 each IV PKCONSULT [facility] PRN Reason: Protocol Zolpidem Tartrate (Ambien) 5 mg PO QHS PRN PRN Reason: Sleep Last Admin: 08/09/17 23:37 Dose: 5 mg Review of Systems ROS unobtainable: due to endotracheal tube Physical Examination Vital signs: Vital Signs Pulse Resp BP Pulse Ox 80 18 66/41 98 08/08/17 13:00 08/08/17 13:00 08/08/17 13:00 08/08/17 13:00 General appearance: no acute distress, appears uncomfortable Eyes: non-icteric ENT: oropharynx moist Neck: supple, no lymphadenopathy, no JVD Effort: mildly labored Ascultation: Bilateral: diminished breath sounds, rhonchi (mild) Cardiovascular: regular rate and rhythm Gastrointestinal: absent bowel sounds, tender, other (abdominal incision with dressing noted) Extremities: no cyanosis, no edema, pink and warm Musculoskeletal: no deformities Gait: other (non-ambulatory) other (sedated) Results - Laboratory Findings CBC and BMP: 08/18/17 Unknown 08/18/17 Unknown ABG POC ABG pH 7.418 (7.35-7.45) 08/18/17 04:26 POC ABG pCO2 29.0 (35-45) L 08/18/17 04:26 POC ABG pO2 148 (80-105) H 08/18/17 04:26 POC ABG HCO3 18.7 08/18/17 04:26 POC ABG Total CO2 20 08/18/17 04:26 POC ABG O2 Sat 99 08/18/17 04:26 PT/INR, D-dimer PT 16.0 Sec. (12.2-14.9) H 08/17/17 11:20 INR 1.29 (0.87-1.13) H 08/17/17 11:20 Abnormal lab findings: Abnormal Labs 08/08/17 08/08/17 08/09/17 21:23 21:31 11:19 WBC 15.7 H RBC 2.93 L Hgb 8.7 L Hct 26.8 L RDW 19.2 H Plt Count Lymph % (Auto) [place] % (Auto) [place] # Seg Neutrophils % Seg Neuts % (Manual) Lymphocytes % (Manual) Monocytes % (Manual) Nucleated RBC % Seg Neutrophils # Seg Neutrophils # Man Lymphocytes # (Manual) Monocytes # (Manual) Basophils # (Manual) PT INR POC ABG pH 7.490 H POC ABG pCO2 POC ABG pO2 122 H Sodium Potassium Chloride Carbon Dioxide BUN Creatinine Glucose POC Glucose Calcium Phosphorus Magnesium AST Alkaline Phosphatase Troponin T 0.133 H* C-Reactive Protein Total Protein Albumin HDL Cholesterol 26 L 08/09/17 08/10/17 08/10/17 13:25 04:45 04:45 WBC 15.5 H RBC 2.97 L Hgb 8.9 L Hct 27.0 L RDW 19.2 H Plt Count Lymph % (Auto) [place] % (Auto) [place] # Seg Neutrophils % Seg Neuts % (Manual) 73.0 H Lymphocytes % (Manual) 7.0 L Monocytes % (Manual) 14.0 H Nucleated RBC % Seg Neutrophils # Seg Neutrophils # Man 11.3 H Lymphocytes # (Manual) 1.1 L Monocytes # (Manual) 2.2 H Basophils # (Manual) 0.2 H PT INR POC ABG pH POC ABG pCO2 POC ABG pO2 Sodium Potassium 3.3 L Chloride 97.3 L Carbon Dioxide 21 L BUN 23 H Creatinine 6.5 H Glucose POC Glucose Calcium 7.3 L Phosphorus Magnesium AST Alkaline Phosphatase 138 H Troponin T 0.132 H* C-Reactive Protein Total Protein 4.8 L Albumin 1.4 L HDL Cholesterol 08/11/17 08/11/17 08/12/17 04:00 04:00 05:50 WBC 19.3 H RBC 3.10 L Hgb 9.5 L Hct 28.2 L RDW 19.2 H Plt Count 463 H Lymph % (Auto) 7.5 L [place] % (Auto) 14.6 H [place] # 2.8 H Seg Neutrophils % 77.0 H Seg Neuts % (Manual) Lymphocytes % (Manual) Monocytes % (Manual) Nucleated RBC % Seg Neutrophils # 14.8 H Seg Neutrophils # Man Lymphocytes # (Manual) Monocytes # (Manual) Basophils # (Manual) PT INR POC ABG pH POC ABG pCO2 POC ABG pO2 Sodium 136 L 136 L Potassium 3.3 L Chloride 96.3 L 96.6 L Carbon Dioxide BUN 26 H 26 H Creatinine 6.4 H 6.2 H Glucose 135 H 133 H POC Glucose Calcium 8.2 L Phosphorus Magnesium 1.30 L AST Alkaline Phosphatase 139 H Troponin T C-Reactive Protein Total Protein 5.5 L Albumin 1.7 L HDL Cholesterol 08/12/17 08/12/17 08/12/17 05:50 05:50 05:50 WBC 20.1 H RBC 3.06 L Hgb 9.3 L Hct 27.9 L RDW 18.4 H Plt Count 471 H Lymph % (Auto) [place] % (Auto) [place] # Seg Neutrophils % Seg Neuts % (Manual) 85.0 H Lymphocytes % (Manual) 8.0 L Monocytes % (Manual) Nucleated RBC % Seg Neutrophils # Seg Neutrophils # Man 17.1 H Lymphocytes # (Manual) Monocytes # (Manual) 1.0 H Basophils # (Manual) PT 15.2 H INR 1.14 H POC ABG pH POC ABG pCO2 POC ABG pO2 Sodium Potassium Chloride Carbon Dioxide BUN Creatinine Glucose POC Glucose Calcium Phosphorus Magnesium AST Alkaline Phosphatase Troponin T C-Reactive Protein 28.90 H Total Protein Albumin HDL Cholesterol 08/12/17 08/13/1717 16:23 06:14 06:14 WBC 21.8 H RBC 3.11 L Hgb 9.4 L Hct 28.2 L RDW 18.2 H Plt Count 492 H Lymph % (Auto) [place] % (Auto) [place] # Seg Neutrophils % Seg Neuts % (Manual) 73.0 H Lymphocytes % (Manual) 2.0 L Monocytes % (Manual) 15 H Nucleated RBC % Seg Neutrophils # Seg Neutrophils # Man 15.9 H Lymphocytes # (Manual) 0.4 L Monocytes # (Manual) 2.4 H Basophils # (Manual) PT INR POC ABG pH POC ABG pCO2 POC ABG pO2 Sodium Potassium Chloride 96.2 L Carbon Dioxide BUN 28 H Creatinine 5.6 H Glucose 114 H POC Glucose Calcium Phosphorus Magnesium AST Alkaline Phosphatase Troponin T C-Reactive Protein 26.10 H Total Protein Albumin HDL Cholesterol 08/13/17 08/14/17 08/14/17 16:39 04:00 04:00 WBC 22.1 H RBC 3.25 L Hgb 9.9 L Hct 29.5 L RDW 17.9 H Plt Count 525 H Lymph % (Auto) [place] % (Auto) [place] # Seg Neutrophils % Seg Neuts % (Manual) 74.0 H Lymphocytes % (Manual) 8.0 L Monocytes % (Manual) 12.0 H Nucleated RBC % Seg Neutrophils # Seg Neutrophils # Man 16.4 H Lymphocytes # (Manual) Monocytes # (Manual) 2.7 H Basophils # (Manual) PT INR POC ABG pH POC ABG pCO2 POC ABG pO2 Sodium 134 L Potassium 3.3 L Chloride 93.3 L Carbon Dioxide BUN 27 H Creatinine 6.0 H Glucose 152 H POC Glucose 151 H Calcium Phosphorus Magnesium AST Alkaline Phosphatase Troponin T C-Reactive Protein Total Protein Albumin HDL Cholesterol 08/15/17 08/16/17 08/16/17 09:10 09:50 09:50 WBC 31.1 H RBC 3.21 L Hgb 9.6 L Hct 29.3 L RDW 18.1 H Plt Count 642 H Lymph % (Auto) [place] % (Auto) [place] # Seg Neutrophils % Seg Neuts % (Manual) 74.0 H Lymphocytes % (Manual) 4.0 L Monocytes % (Manual) 9.0 H Nucleated RBC % Seg Neutrophils # Seg Neutrophils # Man 23.0 H Lymphocytes # (Manual) Monocytes # (Manual) 2.8 H Basophils # (Manual) PT INR POC ABG pH POC ABG pCO2 POC ABG pO2 Sodium 136 L 136 L Potassium 3.5 L Chloride 97.6 L 94.9 L Carbon Dioxide BUN 27 H 28 H Creatinine 5.6 H 5.5 H Glucose 117 H 103 H POC Glucose Calcium Phosphorus Magnesium AST Alkaline Phosphatase 137 H Troponin T C-Reactive Protein Total Protein 5.4 L Albumin 1.5 L HDL Cholesterol 08/16/17 08/17/17 08/17/17 09:50 05:00 06:26 WBC RBC Hgb Hct RDW Plt Count Lymph % (Auto) [place] % (Auto) [place] # Seg Neutrophils % Seg Neuts % (Manual) Lymphocytes % (Manual) Monocytes % (Manual) Nucleated RBC % Seg Neutrophils # Seg Neutrophils # Man Lymphocytes # (Manual) Monocytes # (Manual) Basophils # (Manual) PT INR POC ABG pH POC ABG pCO2 POC ABG pO2 Sodium 134 L Potassium 3.0 L Chloride 97.8 L Carbon Dioxide BUN 30 H Creatinine 5.3 H Glucose 147 H POC Glucose 165 H Calcium 7.5 L Phosphorus Magnesium AST Alkaline Phosphatase Troponin T C-Reactive Protein 32.30 H Total Protein Albumin HDL Cholesterol 08/17/17 08/17/17 08/17/17 10:56 11:20 11:20 WBC 39.1 H RBC 3.10 L Hgb 9.2 L Hct 28.6 L RDW 18.3 H Plt Count 580 H Lymph % (Auto) [place] % (Auto) [place] # Seg Neutrophils % Seg Neuts % (Manual) 89.5 H Lymphocytes % (Manual) 3.5 L Monocytes % (Manual) Nucleated RBC % Seg Neutrophils # Seg Neutrophils # Man 35.0 H Lymphocytes # (Manual) Monocytes # (Manual) 2.5 H Basophils # (Manual) 0.2 H PT 16.0 H INR 1.29 H POC ABG pH 7.464 H POC ABG pCO2 34.1 L POC ABG pO2 75 L Sodium Potassium Chloride Carbon Dioxide BUN Creatinine Glucose POC Glucose Calcium Phosphorus Magnesium AST Alkaline Phosphatase Troponin T C-Reactive Protein Total Protein Albumin HDL Cholesterol 08/17/17 08/17/17 08/17/17 16:57 20:20 20:54 WBC 34.4 H RBC 2.81 L Hgb 8.4 L Hct 26.0 L RDW 17.8 H Plt Count 455 H Lymph % (Auto) [place] % (Auto) [place] # Seg Neutrophils % Seg Neuts % (Manual) Lymphocytes % (Manual) 3.5 L Monocytes % (Manual) Nucleated RBC % 5.0 H Seg Neutrophils # Seg Neutrophils # Man 16.5 H Lymphocytes # (Manual) Monocytes # (Manual) 1.0 H Basophils # (Manual) PT INR POC ABG pH 7.557 H POC ABG pCO2 23.1 L POC ABG pO2 187 H Sodium 135 L Potassium 2.9 L* Chloride Carbon Dioxide 20 L BUN 32 H Creatinine 5.4 H Glucose 129 H POC Glucose Calcium 7.5 L Phosphorus Magnesium 1.50 L AST 85 H Alkaline Phosphatase Troponin T C-Reactive Protein Total Protein 4.0 L D Albumin 1.6 L HDL Cholesterol 08/17/17 08/18/17 08/18/17 23:47 04:26 05:51 WBC RBC Hgb Hct RDW Plt Count Lymph % (Auto) [place] % (Auto) [place] # Seg Neutrophils % Seg Neuts % (Manual) Lymphocytes % (Manual) Monocytes % (Manual) Nucleated RBC % Seg Neutrophils # Seg Neutrophils # Man Lymphocytes # (Manual) Monocytes # (Manual) Basophils # (Manual) PT INR POC ABG pH POC ABG pCO2 29.0 L POC ABG pO2 148 H Sodium Potassium Chloride Carbon Dioxide BUN Creatinine Glucose POC Glucose 188 H 202 H Calcium Phosphorus Magnesium AST Alkaline Phosphatase Troponin T C-Reactive Protein Total Protein Albumin HDL Cholesterol 08/18/17 08/18/17 08/18/17 11:44 Unknown Unknown WBC 39.0 H RBC 2.84 L Hgb 8.4 L Hct 26.5 L RDW 18.0 H Plt Count 476 H Lymph % (Auto) [place] % (Auto) [place] # Seg Neutrophils % Seg Neuts % (Manual) Lymphocytes % (Manual) 7.0 L Monocytes % (Manual) 10.0 H Nucleated RBC % 3.0 H Seg Neutrophils # Seg Neutrophils # Man 15.6 H Lymphocytes # (Manual) Monocytes # (Manual) 3.9 H Basophils # (Manual) PT INR POC ABG pH POC ABG pCO2 POC ABG pO2 Sodium Potassium Chloride Carbon Dioxide 19 L BUN 34 H Creatinine 5.6 H Glucose 201 H POC Glucose 195 H Calcium 7.8 L Phosphorus 1.90 L D Magnesium 1.60 L AST Alkaline Phosphatase Troponin T C-Reactive Protein Total Protein Albumin HDL Cholesterol - Diagnostic Findings Chest x-ray: image reviewed (cardiomegaly, ET tube in good position clear lung ortez) Assessment and Plan Impression: Acute postop respiratory failure Perforated, with peritonitis Sepsis with septic shock on pressors support End-stage renal disease status post peritoneal dialysis Recommendations: Cautious IV fluid boluses to improve BP. Continue with ventilatory support IV antibiotic per ID. Dialysis per nephrology DVT and GI prophylaxis Total critical care time 40 minutes
[2017-08-18] MEDS ORDERED: TPN ADULT 1,800 ML IV SCH (20:00)
--- NOTE | 2017-08-18 21:16 | Progress Note ---
Assessment and Plan - Patient Problems (1) End-stage renal disease on peritoneal dialysis Current Visit: Yes Status: Chronic Plan to address problem: continue PD Follow renal. S/p PD catheter placement. (2) Leukocytosis Current Visit: Yes Status: Acute Qualifiers: Leukocytosis type: L Plan to address problem: See notes above. make sure that PD access is clean also. see notes. Probably infection from the infected PD catheter. (3) Anemia Current Visit: Yes Status: Acute Qualifiers: Anemia type: A Iron deficiency anemia type: I Vitamin B12 deficiency anemia type: V Folate deficiency anemia type: F Bone marrow failure anemia type: B Hemolytic anemia type: H Other causes of anemia: O Chronic kidney disease stage: C Plan to address problem: see notes , monitor labs,. Subjective Date of service: 08/18/17 Principal diagnosis: /anemia, poor oral intake. Interval history: Patient seen today/examined, labs reviewed, case d/w she, and family.complaints of abdominal pain. Patient resting in bed in the ICU, post vascular procedure. labs reviewed, Reactive thrombocytosis, anemia of CD, leukocytosis from infection vs inflamatory process. Patient seen/examined, in bed in the ICU, on the vent post surgery.Labs reviewed , notes reviewed. will continue to monitor labs/patient with you. Replacement transfusion, if /when indicated. patient seen/examined, SBP75, on pressors., lethargic, on the vent, labs reviewed, wbc 39,000 Objective - Constitutional Vitals: Vital Signs - 12hr 08/18/17 08/18/17 08/18/17 09:15 09:30 09:45 Temperature Pulse Rate 102 H 101 H 102 H Pulse Rate [ From Monitor] Respiratory 27 H 26 H 24 Rate Blood Pressure 123/57 107/78 107/78 O2 Sat by Pulse 92 Oximetry 08/18/17 08/18/17 08/18/17 10:00 10:15 10:31 Temperature Pulse Rate 101 H 102 H 103 H Pulse Rate [ From Monitor] Respiratory 24 29 H 29 H Rate Blood Pressure 98/69 98/69 90/43 O2 Sat by Pulse 98 Oximetry 08/18/17 08/18/17 08/18/17 10:45 10:58 11:01 Temperature Pulse Rate 103 H 104 H 104 H Pulse Rate [ From Monitor] Respiratory 27 H 26 H Rate Blood Pressure 109/34 109/34 104/56 O2 Sat by Pulse 97 91 Oximetry 08/18/17 08/18/17 08/18/17 11:15 11:31 11:45 Temperature Pulse Rate 106 H 105 H 104 H Pulse Rate [ From Monitor] Respiratory 29 H 21 27 H Rate Blood Pressure 104/56 87/62 87/62 O2 Sat by Pulse 98 97 95 Oximetry 08/18/17 08/18/17 08/18/17 12:00 12:15 12:30 Temperature 98.1 F Pulse Rate 103 H 105 H 104 H Pulse Rate [ 103 H From Monitor] Respiratory 20 28 H 33 H Rate Blood Pressure 96/63 96/63 110/59 O2 Sat by Pulse 79 L 87 87 Oximetry 08/18/17 08/18/17 08/18/17 12:45 13:01 13:15 Temperature Pulse Rate 105 H 105 H 104 H Pulse Rate [ From Monitor] Respiratory 32 H 31 H 32 H Rate Blood Pressure 110/59 105/49 105/49 O2 Sat by Pulse 96 86 99 Oximetry 08/18/17 08/18/17 08/18/17 13:31 13:45 14:00 Temperature Pulse Rate 105 H 106 H 106 H Pulse Rate [ From Monitor] Respiratory 28 H 28 H 29 H Rate Blood Pressure 103/46 103/46 105/39 O2 Sat by Pulse 100 98 97 Oximetry 08/18/17 08/18/17 08/18/17 14:15 14:30 14:45 Temperature Pulse Rate 107 H 106 H 106 H Pulse Rate [ From Monitor] Respiratory 32 H 31 H 38 H Rate Blood Pressure 103/46 96/48 96/48 O2 Sat by Pulse 100 98 Oximetry 08/18/17 08/18/17 08/18/17 15:01 15:04 15:15 Temperature Pulse Rate 106 H 106 H 106 H Pulse Rate [ From Monitor] Respiratory 29 H 29 H Rate Blood Pressure 90/50 90/50 90/50 O2 Sat by Pulse 100 Oximetry 08/18/17 08/18/17 08/18/17 15:30 15:45 16:00 Temperature Pulse Rate 107 H 107 H 106 H Pulse Rate [ 106 H From Monitor] Respiratory 31 H 26 H 24 Rate Blood Pressure 97/46 97/46 100/45 O2 Sat by Pulse 99 100 98 Oximetry 08/18/17 08/18/17 08/18/17 16:15 16:19 16:31 Temperature 98.1 F Pulse Rate 107 H 108 H Pulse Rate [ From Monitor] Respiratory 25 H 28 H Rate Blood Pressure 100/45 100/45 O2 Sat by Pulse Oximetry 08/18/17 08/18/17 08/18/17 16:45 17:01 17:15 Temperature Pulse Rate 107 H 108 H 108 H Pulse Rate [ From Monitor] Respiratory 30 H 30 H 27 H Rate Blood Pressure 100/45 100/45 88/48 O2 Sat by Pulse Oximetry 08/18/17 08/18/17 08/18/17 17:30 17:45 18:01 Temperature Pulse Rate 110 H 109 H 109 H Pulse Rate [ From Monitor] Respiratory 28 H 29 H 24 Rate Blood Pressure 91/46 91/46 90/55 O2 Sat by Pulse 96 Oximetry 08/18/17 08/18/17 19:24 20:00 Temperature 99.5 F Pulse Rate 110 H Pulse Rate [ From Monitor] Respiratory Rate Blood Pressure 85/34 O2 Sat by Pulse 100 Oximetry General appearance: Present: severe distress, well-nourished - EENT Eyes: PERRL, EOM intact ENT: hearing intact, clear oral mucosa Ears: bilateral: normal - Neck Neck: supple, normal ROM - Respiratory Respiratory: bilateral: other (on vent) - Breasts Breasts: deferred - Cardiovascular Rhythm: regular Heart Sounds: Present: S1 & S2. Absent: gallop, rub Extremities: pulses intact, No edema, normal color, Full ROM - Gastrointestinal General gastrointestinal: Present: soft, non-tender, non-distended, normal bowel sounds Rectal Exam: deferred - Genitourinary Female genitourinary: deferred - Integumentary Integumentary: clear, warm, dry - Labs CBC & Chem 7: 08/18/17 Unknown 08/18/17 Unknown Labs: Abnormal lab results 08/17/17 08/17/17 08/18/17 Range/Units 20:20 23:47 04:26 WBC (4.5-11.0) K/mm3 RBC (3.65-5.03) M/mm3 Hgb (10.1-14.3) gm/dl Hct (30.3-42.9) % RDW (13.2-15.2) % Plt Count (140-440) K/mm3 Lymphocytes % (Manual) 3.5 L (13.4-35.0) % Monocytes % (Manual) (0.0-7.3) % Nucleated RBC % 5.0 H (0.0-0.9) % Seg Neutrophils # Man 16.5 H (1.8-7.7) K/mm3 Monocytes # (Manual) 1.0 H (0.0-0.8) K/mm3 POC ABG pCO2 29.0 L (35-45) POC ABG pO2 148 H (80-105) Carbon Dioxide (22-30) mmol/L BUN (7-17) mg/dL Creatinine (0.7-1.2) mg/dL Glucose (65-100) mg/dL POC Glucose 188 H (70-105) Calcium (8.4-10.2) mg/dL Phosphorus (2.5-4.5) mg/dL Magnesium (1.7-2.3) mg/dL 08/18/17 08/18/17 08/18/17 Range/Units 05:51 11:44 17:07 WBC (4.5-11.0) K/mm3 RBC (3.65-5.03) M/mm3 Hgb (10.1-14.3) gm/dl Hct (30.3-42.9) % RDW (13.2-15.2) % Plt Count (140-440) K/mm3 Lymphocytes % (Manual) (13.4-35.0) % Monocytes % (Manual) (0.0-7.3) % Nucleated RBC % (0.0-0.9) % Seg Neutrophils # Man (1.8-7.7) K/mm3 Monocytes # (Manual) (0.0-0.8) K/mm3 POC ABG pCO2 (35-45) POC ABG pO2 (80-105) Carbon Dioxide (22-30) mmol/L BUN (7-17) mg/dL Creatinine (0.7-1.2) mg/dL Glucose (65-100) mg/dL POC Glucose 202 H 195 H 182 H (70-105) Calcium (8.4-10.2) mg/dL Phosphorus (2.5-4.5) mg/dL Magnesium (1.7-2.3) mg/dL 08/18/17 08/18/17 Range/Units Unknown Unknown WBC 39.0 H (4.5-11.0) K/mm3 RBC 2.84 L (3.65-5.03) M/mm3 Hgb 8.4 L (10.1-14.3) gm/dl Hct 26.5 L (30.3-42.9) % RDW 18.0 H (13.2-15.2) % Plt Count 476 H (140-440) K/mm3 Lymphocytes % (Manual) 7.0 L (13.4-35.0) % Monocytes % (Manual) 10.0 H (0.0-7.3) % Nucleated RBC % 3.0 H (0.0-0.9) % Seg Neutrophils # Man 15.6 H (1.8-7.7) K/mm3 Monocytes # (Manual) 3.9 H (0.0-0.8) K/mm3 POC ABG pCO2 (35-45) POC ABG pO2 (80-105) Carbon Dioxide 19 L (22-30) mmol/L BUN 34 H (7-17) mg/dL Creatinine 5.6 H (0.7-1.2) mg/dL Glucose 201 H (65-100) mg/dL POC Glucose (70-105) Calcium 7.8 L (8.4-10.2) mg/dL Phosphorus 1.90 L D (2.5-4.5) mg/dL Magnesium 1.60 L (1.7-2.3) mg/dL
[2017-08-19] MEDS: PROTONIX IV SCH ×3 (00:12→21:22)
[2017-08-19] MEDS: HEPARIN SUB-Q SCH ×2 (00:12→05:03)
[2017-08-19] MEDS: PROAMATINE PO SCH ×2 (00:13→07:53)
[2017-08-19] MEDS: CEPHULAC PO SCH ×3 (00:14→13:36)
[2017-08-19] MEDS: MEGACE PO SCH ×3 (00:15→13:36)
[2017-08-19] MEDS: MORPHINE IV PRN ×2 (00:27→05:02)
[2017-08-19] MEDS: DIANEAL PD-2 W/1.5% DEXTROSE IP SCH ×4 (05:03→20:00)
[2017-08-19 05:15] LABS: ISTAT Base Excess -3; ISTAT HCO3 21.3; ISTAT PCO2 29.7 (35-45); ISTAT PH 7.463 (7.35-7.45); ISTAT PO2 134 (80-105); ISTAT SO2 99; ISTAT TCO2 22
[2017-08-19 05:26] LABS: Hematocrit 22.6 % (30.3-42.9); Hemoglobin 7.3 gm/dl (10.1-14.3); Mean Corpuscular HGB Conc 32 % (30-34); Mean Corpuscular Hemoglobin 30 pg (28-32); Mean Corpuscular Volume 92 fl (79-97); Platelet Count 363 K/mm3 (140-440); Red Blood Count 2.46 M/mm3 (3.65-5.03); Red Cell Distribution Width 18.1 % (13.2-15.2)
[2017-08-19 05:51] LABS: BUN/Creatinine Ratio 7.54; Calcium 7.8 mg/dL (8.4-10.2); Chloride 105.2 mmol/L (98-107); Magnesium 1.7 mg/dL (1.7-2.3); Phosphorous 1.9 mg/dL (2.5-4.5); Potassium 5.1 mmol/L (3.6-5.0)
[2017-08-19 06:56] LABS: Basophils % (Manual) 0 % (0.0-1.8); Blastocytes % (Manual) 0 %
[2017-08-19 06:57] LABS: Anisocytosis 2+; Hypochromasia 1+; Ovalocytes Few; Polychromasia Few; Target Cells 1+
[2017-08-19 07:07] LABS: Elliptocytes Few
[2017-08-19 07:08] LABS: Diff Status Complete; Giant Platelets Few; Smudge Cells 1+
--- NOTE | 2017-08-19 07:10 | Progress Note ---
Assessment and Plan - Patient Problems (1) End-stage renal disease on peritoneal dialysis Current Visit: Yes Status: Chronic Plan to address problem: S/p removal of PD catheter. Plan to insert tunnel catheter today and start on hemodialysis. Patient is on TPN. D/w her at the bedside. (2) Hyperkalemia Current Visit: Yes Status: Acute Plan to address problem: Insulin-dextrose given. Hold / stop TPN due to potassium content. (3) Anemia Current Visit: No Status: Chronic Qualifiers: Anemia type: due to chronic kidney disease Iron deficiency anemia type: I Vitamin B12 deficiency anemia type: V Folate deficiency anemia type: F Bone marrow failure anemia type: B Hemolytic anemia type: H Other causes of anemia: O Chronic kidney disease stage: on chronic dialysis Qualified Code(s ): N18.6 - End stage renal disease; D63.1 - Anemia in chronic kidney disease; Z99.2 - Dependence on renal dialysis Plan to address problem: Epogen. (4) Hypotension Current Visit: Yes Status: Chronic Qualifiers: Hypotension type: H Trimester: T Plan to address problem: On IV levophed and Midodrine. (5) Leukocytosis Current Visit: Yes Status: Acute Qualifiers: Leukocytosis type: unspecified Qualified Code(s): D72.829 - Elevated white blood cell count, unspecified Plan to address problem: Followed by ID and Heme-Onc. Suspected peritonitis. S/p removal of PD catheter. (6) Poor appetite Current Visit: Yes Status: Chronic Plan to address problem: Continue Megace. Subjective Date of service: 08/19/17 Principal diagnosis: /anemia, poor oral intake. Interval history: Patient was seen and examined at the bedside. Objective - Vital Signs Vital signs: Vital Signs - 12hr 08/18/17 08/18/17 08/18/17 19:15 19:24 19:30 Temperature Pulse Rate 109 H 110 H 111 H Pulse Rate [ Apical] Pulse Rate [ From Monitor] Pulse Rate [ Right Dorsalis Pedis] Respiratory 25 H 26 H Rate Blood Pressure 85/34 85/34 87/39 O2 Sat by Pulse 100 100 100 Oximetry 08/18/17 08/18/17 08/18/17 19:45 20:00 20:15 Temperature 99.5 F Pulse Rate 111 H 109 H 110 H Pulse Rate [ 111 H Apical] Pulse Rate [ 111 H From Monitor] Pulse Rate [ 111 H Right Dorsalis Pedis] Respiratory 24 22 22 Rate Blood Pressure 85/34 75/33 75/33 O2 Sat by Pulse 100 100 Oximetry 08/18/17 08/18/17 08/18/17 20:30 20:45 21:00 Temperature Pulse Rate 110 H 111 H 109 H Pulse Rate [ Apical] Pulse Rate [ From Monitor] Pulse Rate [ Right Dorsalis Pedis] Respiratory 26 H 27 H 22 Rate Blood Pressure 92/43 91/40 94/42 O2 Sat by Pulse 100 100 Oximetry 08/18/17 08/18/17 08/18/17 21:15 21:30 21:45 Temperature Pulse Rate 112 H 113 H 111 H Pulse Rate [ Apical] Pulse Rate [ From Monitor] Pulse Rate [ Right Dorsalis Pedis] Respiratory 26 H 28 H 22 Rate Blood Pressure 94/42 82/48 82/48 O2 Sat by Pulse 100 Oximetry 08/18/17 08/18/17 08/18/17 22:00 22:15 22:30 Temperature Pulse Rate 112 H 112 H 112 H Pulse Rate [ Apical] Pulse Rate [ From Monitor] Pulse Rate [ Right Dorsalis Pedis] Respiratory 24 23 24 Rate Blood Pressure 100/46 100/46 88/45 O2 Sat by Pulse Oximetry 08/18/17 08/18/17 08/18/17 22:45 23:00 23:15 Temperature Pulse Rate 112 H 111 H 111 H Pulse Rate [ Apical] Pulse Rate [ From Monitor] Pulse Rate [ Right Dorsalis Pedis] Respiratory 25 H 22 23 Rate Blood Pressure 88/45 86/36 86/36 O2 Sat by Pulse 99 100 Oximetry 08/18/17 08/18/17 08/18/17 23:25 23:30 23:45 Temperature Pulse Rate 110 H 111 H 113 H Pulse Rate [ Apical] Pulse Rate [ From Monitor] Pulse Rate [ Right Dorsalis Pedis] Respiratory 21 23 22 Rate Blood Pressure 86/36 87/44 87/44 O2 Sat by Pulse Oximetry 08/19/17 08/19/17 08/19/17 00:00 00:15 00:30 Temperature 99.8 F H Pulse Rate 113 H 112 H 111 H Pulse Rate [ 112 H Apical] Pulse Rate [ 112 H From Monitor] Pulse Rate [ Right Dorsalis Pedis] Respiratory 20 22 24 Rate Blood Pressure 90/48 90/48 84/39 O2 Sat by Pulse 98 Oximetry 08/19/17 08/19/17 08/19/17 00:45 01:00 01:15 Temperature Pulse Rate 111 H 111 H 114 H Pulse Rate [ Apical] Pulse Rate [ From Monitor] Pulse Rate [ Right Dorsalis Pedis] Respiratory 23 23 25 H Rate Blood Pressure 83/45 79/47 79/47 O2 Sat by Pulse Oximetry 08/19/17 08/19/17 08/19/17 01:30 01:45 02:00 Temperature Pulse Rate 112 H 110 H 114 H Pulse Rate [ Apical] Pulse Rate [ From Monitor] Pulse Rate [ Right Dorsalis Pedis] Respiratory 24 25 H 23 Rate Blood Pressure 97/54 97/54 102/39 O2 Sat by Pulse 100 Oximetry 08/19/17 08/19/17 08/19/17 02:15 02:30 02:45 Temperature Pulse Rate 114 H 112 H 110 H Pulse Rate [ Apical] Pulse Rate [ From Monitor] Pulse Rate [ Right Dorsalis Pedis] Respiratory 32 H 24 24 Rate Blood Pressure 102/39 87/45 87/45 O2 Sat by Pulse 100 100 Oximetry 08/19/17 08/19/17 08/19/17 03:00 03:15 03:30 Temperature Pulse Rate 110 H 109 H 109 H Pulse Rate [ Apical] Pulse Rate [ From Monitor] Pulse Rate [ Right Dorsalis Pedis] Respiratory 25 H 20 22 Rate Blood Pressure 87/45 92/46 86/51 O2 Sat by Pulse 96 Oximetry 08/19/17 08/19/17 08/19/17 03:45 04:00 04:01 Temperature Pulse Rate 110 H 111 H 111 H Pulse Rate [ Apical] Pulse Rate [ From Monitor] Pulse Rate [ Right Dorsalis Pedis] Respiratory 25 H 20 22 Rate Blood Pressure 86/51 85/51 86/51 O2 Sat by Pulse 100 100 100 Oximetry 08/19/17 08/19/17 08/19/17 04:15 04:18 04:31 Temperature 100.3 F H Pulse Rate 112 H 111 H Pulse Rate [ Apical] Pulse Rate [ From Monitor] Pulse Rate [ Right Dorsalis Pedis] Respiratory 26 H 20 Rate Blood Pressure 86/51 109/55 O2 Sat by Pulse 100 100 Oximetry 08/19/17 08/19/17 08/19/17 04:45 05:00 05:15 Temperature Pulse Rate 109 H 108 H 108 H Pulse Rate [ Apical] Pulse Rate [ From Monitor] Pulse Rate [ Right Dorsalis Pedis] Respiratory 18 20 20 Rate Blood Pressure 109/55 109/55 105/52 O2 Sat by Pulse 100 100 100 Oximetry 08/19/17 08/19/17 08/19/17 05:30 05:45 06:00 Temperature Pulse Rate 108 H 108 H 107 H Pulse Rate [ Apical] Pulse Rate [ From Monitor] Pulse Rate [ Right Dorsalis Pedis] Respiratory 20 19 20 Rate Blood Pressure 118/53 118/53 118/53 O2 Sat by Pulse 100 100 100 Oximetry 08/19/17 08/19/17 08/19/17 06:15 06:30 06:45 Temperature Pulse Rate 108 H 107 H 107 H Pulse Rate [ Apical] Pulse Rate [ From Monitor] Pulse Rate [ Right Dorsalis Pedis] Respiratory 21 21 21 Rate Blood Pressure 100/62 96/59 96/59 O2 Sat by Pulse 100 100 100 Oximetry 08/19/17 07:00 Temperature Pulse Rate 107 H Pulse Rate [ Apical] Pulse Rate [ From Monitor] Pulse Rate [ Right Dorsalis Pedis] Respiratory 23 Rate Blood Pressure 98/50 O2 Sat by Pulse 100 Oximetry - General Appearance General appearance: well-developed, appears stated age, obese, intubated (on vent, FiO2 30%), other EENT: ATNC, PERRL Neck: supple Respiratory: Present: Clear to Ascultation Cardiology: regular, S1S2, no murmurs Gastrointestinal: no tenderness, obese Integumentary: no rash, other (right leg dressing) Neurologic: other (nodes head) Musculoskeletal: other (1+ edema of both LEs) - Lab 08/19/17 07:37 08/19/17 05:00 Most recent lab results Calcium 7.8 mg/dL (8.4-10.2) L 08/19/17 05:00 Phosphorus 1.90 mg/dL (2.5-4.5) L 08/19/17 05:00 Magnesium 1.70 mg/dL (1.7-2.3) 08/19/17 05:00
[2017-08-19 08:08] LABS: Hematocrit 24.5 % (30.3-42.9); Hemoglobin 7.5 gm/dl (10.1-14.3); Mean Corpuscular HGB Conc 31 % (30-34); Mean Corpuscular Hemoglobin 30 pg (28-32); Mean Corpuscular Volume 98 fl (79-97); Platelet Count 362 K/mm3 (140-440); Red Cell Distribution Width 18.4 % (13.2-15.2)
[2017-08-19 09:00] LABS: Anisocytosis 2+; Blastocytes % (Manual) 0 %; Elliptocytes Few; Eosinophils % (Manual) 0 % (0.0-4.3); Hypochromasia 1+; Ovalocytes Few; Polychromasia Few; Smudge Cells 1+; Target Cells 1+
[2017-08-19] MEDS ORDERED: D50W (25GM) Syringe IV ONE (09:00)
[2017-08-19 09:01] LABS: Diff Status Complete; Platelet Clumps Few
[2017-08-19] MEDS ORDERED: NACL 0.9% 100 ML IV PRN (09:30)
--- NOTE | 2017-08-19 09:30 | Progress Note ---
Subjective Date of service: 08/19/17 Principal diagnosis: /anemia, poor oral intake. Interval history: 62 YO Female with MO, ESRD-PD(Daily), HTN, OA, Ischemic Cardiomyopathy currently on Milrinone,Chronic Pain presents to ED for evaluation. Pt states that she awoke this morning feeling lightheaded. Pt states that she attempted to get up from a seated position and began feeling lightheaded, and nearly passed out. Pt states that she also has been experiencing pain in her abdomen for the past 2 days, with worsening symptoms over the past 1 day. Pt denies fever, chills, CP, Palpitations, NVD, trauma, productive cough, BRBPR, productive cough, or recent ill contacts. Pt seen and evaluated in ED and found to have sepsis, acute on chronic respiratory failure, and hypotension. Pt at bedside diring exam and interview. Pt counseled regarding poor prognosis. Pt declined admission to ICU, Central and arterial line placement. Pt states that she wants to sign out AMA, and wants to return to [facility] for further care. Pt informed of risk of , and worsening disease if she leaves AMA. In addition, pt informed that she my not survive transport in a private vehicle. [facility] physician contacted, and will not accept patient transfer due to hemodynamic instability. at bedside weekend events noted exp lap (Dr. Chamorro) review CTAP (08-08-17) - report states bilat stents renal us -- no hydro, suggestive in bilat stents 16 F ivan placed----needed assistance with legs for placement A/P retention stent exchange on hold Objective - Constitutional Vitals: Vital Signs - 12hr 08/18/17 08/18/17 08/18/17 21:30 21:45 22:00 Temperature Pulse Rate 113 H 111 H 112 H Pulse Rate [ Apical] Pulse Rate [ From Monitor] Respiratory 28 H 22 24 Rate Blood Pressure 82/48 82/48 100/46 O2 Sat by Pulse 100 Oximetry 08/18/17 08/18/17 08/18/17 22:15 22:30 22:45 Temperature Pulse Rate 112 H 112 H 112 H Pulse Rate [ Apical] Pulse Rate [ From Monitor] Respiratory 23 24 25 H Rate Blood Pressure 100/46 88/45 88/45 O2 Sat by Pulse 99 Oximetry 08/18/17 08/18/17 08/18/17 23:00 23:15 23:25 Temperature Pulse Rate 111 H 111 H 110 H Pulse Rate [ Apical] Pulse Rate [ From Monitor] Respiratory 22 23 21 Rate Blood Pressure 86/36 86/36 86/36 O2 Sat by Pulse 100 Oximetry 08/18/17 08/18/17 08/19/17 23:30 23:45 00:00 Temperature 99.8 F H Pulse Rate 111 H 113 H 113 H Pulse Rate [ 112 H Apical] Pulse Rate [ 112 H From Monitor] Respiratory 23 22 20 Rate Blood Pressure 87/44 87/44 90/48 O2 Sat by Pulse 98 Oximetry 08/19/17 08/19/17 08/19/17 00:15 00:30 00:45 Temperature Pulse Rate 112 H 111 H 111 H Pulse Rate [ Apical] Pulse Rate [ From Monitor] Respiratory 22 24 23 Rate Blood Pressure 90/48 84/39 83/45 O2 Sat by Pulse Oximetry 08/19/17 08/19/17 08/19/17 01:00 01:15 01:30 Temperature Pulse Rate 111 H 114 H 112 H Pulse Rate [ Apical] Pulse Rate [ From Monitor] Respiratory 23 25 H 24 Rate Blood Pressure 79/47 79/47 97/54 O2 Sat by Pulse Oximetry 08/19/17 08/19/17 08/19/17 01:45 02:00 02:15 Temperature Pulse Rate 110 H 114 H 114 H Pulse Rate [ Apical] Pulse Rate [ From Monitor] Respiratory 25 H 23 32 H Rate Blood Pressure 97/54 102/39 102/39 O2 Sat by Pulse 100 100 Oximetry 08/19/17 08/19/17 08/19/17 02:30 02:45 03:00 Temperature Pulse Rate 112 H 110 H 110 H Pulse Rate [ Apical] Pulse Rate [ From Monitor] Respiratory 24 24 25 H Rate Blood Pressure 87/45 87/45 87/45 O2 Sat by Pulse 100 Oximetry 08/19/17 08/19/17 08/19/17 03:15 03:30 03:45 Temperature Pulse Rate 109 H 109 H 110 H Pulse Rate [ Apical] Pulse Rate [ From Monitor] Respiratory 20 22 25 H Rate Blood Pressure 92/46 86/51 86/51 O2 Sat by Pulse 96 100 Oximetry 08/19/17 08/19/17 08/19/17 04:00 04:01 04:15 Temperature Pulse Rate 111 H 111 H 112 H Pulse Rate [ Apical] Pulse Rate [ From Monitor] Respiratory 20 22 26 H Rate Blood Pressure 85/51 86/51 86/51 O2 Sat by Pulse 100 100 100 Oximetry 08/19/17 08/19/17 08/19/17 04:18 04:31 04:45 Temperature 100.3 F H Pulse Rate 111 H 109 H Pulse Rate [ Apical] Pulse Rate [ From Monitor] Respiratory 20 18 Rate Blood Pressure 109/55 109/55 O2 Sat by Pulse 100 100 Oximetry 08/19/17 08/19/17 08/19/17 05:00 05:15 05:30 Temperature Pulse Rate 108 H 108 H 108 H Pulse Rate [ Apical] Pulse Rate [ From Monitor] Respiratory 20 20 20 Rate Blood Pressure 109/55 105/52 118/53 O2 Sat by Pulse 100 100 100 Oximetry 08/19/17 08/19/17 08/19/17 05:45 06:00 06:15 Temperature Pulse Rate 108 H 107 H 108 H Pulse Rate [ Apical] Pulse Rate [ From Monitor] Respiratory 19 20 21 Rate Blood Pressure 118/53 118/53 100/62 O2 Sat by Pulse 100 100 100 Oximetry 08/19/17 08/19/17 08/19/17 06:30 06:45 07:00 Temperature Pulse Rate 107 H 107 H 107 H Pulse Rate [ Apical] Pulse Rate [ From Monitor] Respiratory 21 21 23 Rate Blood Pressure 96/59 96/59 98/50 O2 Sat by Pulse 100 100 100 Oximetry 08/19/17 08/19/17 08/19/17 07:10 07:15 07:30 Temperature Pulse Rate 105 H 106 H Pulse Rate [ 108 H Apical] Pulse Rate [ 108 H From Monitor] Respiratory 22 22 20 Rate Blood Pressure 98/50 87/54 O2 Sat by Pulse 100 100 100 Oximetry 08/19/17 08/19/17 08/19/17 07:45 08:00 08:01 Temperature 98.6 F Pulse Rate 107 H 106 H 107 H Pulse Rate [ Apical] Pulse Rate [ From Monitor] Respiratory 20 21 Rate Blood Pressure 100/55 92/55 92/55 O2 Sat by Pulse 100 100 100 Oximetry 08/19/17 08/19/17 08:15 08:30 Temperature Pulse Rate 105 H 103 H Pulse Rate [ Apical] Pulse Rate [ From Monitor] Respiratory 22 17 Rate Blood Pressure 92/55 101/56 O2 Sat by Pulse 100 100 Oximetry - Labs CBC & Chem 7: 08/19/17 07:37 08/19/17 05:00 Labs: Abnormal lab results 08/18/17 08/18/17 08/18/17 Range/Units 11:44 17:07 23:45 WBC (4.5-11.0) K/mm3 RBC (3.65-5.03) M/mm3 Hgb (10.1-14.3) gm/dl Hct (30.3-42.9) % MCV (79-97) fl RDW (13.2-15.2) % Seg Neuts % (Manual) (40.0-70.0) % Lymphocytes % (Manual) (13.4-35.0) % Nucleated RBC % (0.0-0.9) % Seg Neutrophils # Man (1.8-7.7) K/mm3 Monocytes # (Manual) (0.0-0.8) K/mm3 Eosinophils # (Manual) (0.0-0.4) K/mm3 POC ABG pH (7.35-7.45) POC ABG pCO2 (35-45) POC ABG pO2 (80-105) Potassium (3.6-5.0) mmol/L Carbon Dioxide (22-30) mmol/L BUN (7-17) mg/dL Creatinine (0.7-1.2) mg/dL Glucose (65-100) mg/dL POC Glucose 195 H 182 H 163 H (70-105) Calcium (8.4-10.2) mg/dL Phosphorus (2.5-4.5) mg/dL 08/19/17 08/19/17 08/19/17 Range/Units 04:18 05:00 05:00 WBC 40.0 H (4.5-11.0) K/mm3 RBC 2.46 L (3.65-5.03) M/mm3 Hgb 7.3 L (10.1-14.3) gm/dl Hct 22.6 L (30.3-42.9) % MCV (79-97) fl RDW 18.1 H (13.2-15.2) % Seg Neuts % (Manual) (40.0-70.0) % Lymphocytes % (Manual) 8.0 L (13.4-35.0) % Nucleated RBC % 2.0 H (0.0-0.9) % Seg Neutrophils # Man 16.4 H (1.8-7.7) K/mm3 Monocytes # (Manual) 1.2 H (0.0-0.8) K/mm3 Eosinophils # (Manual) 1.2 H (0.0-0.4) K/mm3 POC ABG pH 7.463 H (7.35-7.45) POC ABG pCO2 29.7 L (35-45) POC ABG pO2 134 H (80-105) Potassium 5.1 H D (3.6-5.0) mmol/L Carbon Dioxide 20 L (22-30) mmol/L BUN 40 H (7-17) mg/dL Creatinine 5.3 H (0.7-1.2) mg/dL Glucose 128 H (65-100) mg/dL POC Glucose (70-105) Calcium 7.8 L (8.4-10.2) mg/dL Phosphorus 1.90 L (2.5-4.5) mg/dL 08/19/17 08/19/17 Range/Units 05:19 07:37 WBC 45.0 H* (4.5-11.0) K/mm3 RBC 2.50 L (3.65-5.03) M/mm3 Hgb 7.5 L (10.1-14.3) gm/dl Hct 24.5 L (30.3-42.9) % MCV 98 H (79-97) fl RDW 18.4 H (13.2-15.2) % Seg Neuts % (Manual) 81.5 H (40.0-70.0) % Lymphocytes % (Manual) 4.0 L (13.4-35.0) % Nucleated RBC % 1.0 H (0.0-0.9) % Seg Neutrophils # Man 36.7 H (1.8-7.7) K/mm3 Monocytes # (Manual) (0.0-0.8) K/mm3 Eosinophils # (Manual) (0.0-0.4) K/mm3 POC ABG pH (7.35-7.45) POC ABG pCO2 (35-45) POC ABG pO2 (80-105) Potassium (3.6-5.0) mmol/L Carbon Dioxide (22-30) mmol/L BUN (7-17) mg/dL Creatinine (0.7-1.2) mg/dL Glucose (65-100) mg/dL POC Glucose 142 H (70-105) Calcium (8.4-10.2) mg/dL Phosphorus (2.5-4.5) mg/dL
--- NOTE | 2017-08-19 09:33 | XRay Report ---
AP CHEST: HISTORY: Follow up respiratory failure Lines and support devices are unchanged since yesterday's exam. Bibasilar atelectatic changes have decreased by 25%. No large pleural effusion or pneumothorax. Heart size is stable at the upper limits of normal. IMPRESSION: Mild improvement in bibasilar atelectatic changes, otherwise, no change since yesterday's exam.
[2017-08-19] MEDS: LEVOPHED 8 MG in NACL 0.9% 250ML 242 ML IV SCH ×3 (09:40→21:08)
[2017-08-19] MEDS: DIFLUCAN 200 MG/100 ML BAG IV SCH (09:57)
--- NOTE | 2017-08-19 10:49 | Progress Note ---
Assessment and Plan Assessment: 1) Sepsis with septic shock: worsening leukocytosis; source bowel obstruction / suspect perforation. -CRP=28-->32 -WBC=39 --> 45K 2) Bowel obstruction / suspect perforation -S/P Exlap, G-tube placement, EGD, abdominal washout and removal of PD -OR findings - bowel obstruction due to entanglement of PD cath, abscess cavity in LUQ and ? suspect perforation of unclear location 3) CA-UTI: chronic ivan exchanged every 4 weeks and ureteral stents in place which are exchanged every 6 months ? urine cultures still pending should r/o MDR bacteria 4) Paraplegia 5) ESRD on PD - no evidence of peritonitis, wbc count 2. H[employer] and Diphteroids on peritoneal fluid likely contaminants. 6) Recent pancreatitis 7) Penicillin allergy-has taken keflex w/o problems Plan: -agree with CT abdomen r/o leak / abscess -continue meropenem day 7, fluconazole day 4 and vancomycin day 4 -f/u procalcitonin -monitor leukocytosis -plan for tunneled cath placement for HD -poor prognosis, discussed with today Thank you Dr Chen for your consultation, will follow up with you. Ramya Lang MD Infectious Diseases Specialist [facility] ([facility]) M [phone] O [phone] Subjective Date of service: 08/19/17 Principal diagnosis: /anemia, poor oral intake. Interval history: Remains critically ill, intubated on the vent, on levophed at 22 mcg/min. Tmax 100.3 Microbiology: Blood cultures: 08/08 neg 08/12 neg 08/16 ngtd Urine cultures: 08/08 10-100K skin grace Respiratory cultures: Wound cultures: Stool cultures: Other: 08/08 peritoneal fluid + H[employer]/Diphteroids Current Antimicrobials: 08/13 meropenem 08/16 fluconazole 08/16 vancomycin Previous Antimicrobials: 08/10 levaquin Objective - Exam Narrative Exam: General appearance: sedated on the vent in NAD Eyes: anicteric sclerae, moist conjunctivae; no lid-lag; PERRLA HENT: Atraumatic;+ ETT +NGT Neck: Trachea midline; supple, no thyromegaly or lymphadenopathy Lungs: coarse BS moreno CV: RRR, no murmurs Abdomen: soft, midline surgical wound with a drain covered with surg dressings Extremities: + peripheral edema + leg ulcer Skin: Normal temperature, turgor and texture; no rash, ulcers or subcutaneous nodules Psych: sedated. Neuro: sedated Lines: femoral line / Right IJ Nair 08/16 - Constitutional Vitals: Vital Signs Temp Pulse Resp BP Pulse Ox 98.6 F 106 H 24 109/45 100 08/19/17 08:00 08/19/17 09:31 08/19/17 09:31 08/19/17 09:31 08/19/17 09:31 Temperature -Last 24 Hours Temperature 98.6 F Temperature 100.3 F Temperature 99.8 F Temperature 99.5 F Temperature 98.1 F Temperature 98.1 F - Labs CBC & Chem 7: 08/19/17 07:37 08/19/17 05:00 Labs: Abnormal lab results 08/18/17 08/18/17 08/18/17 Range/Units 11:44 17:07 23:45 WBC (4.5-11.0) K/mm3 RBC (3.65-5.03) M/mm3 Hgb (10.1-14.3) gm/dl Hct (30.3-42.9) % MCV (79-97) fl RDW (13.2-15.2) % Seg Neuts % (Manual) (40.0-70.0) % Lymphocytes % (Manual) (13.4-35.0) % Nucleated RBC % (0.0-0.9) % Seg Neutrophils # Man (1.8-7.7) K/mm3 Monocytes # (Manual) (0.0-0.8) K/mm3 Eosinophils # (Manual) (0.0-0.4) K/mm3 POC ABG pH (7.35-7.45) POC ABG pCO2 (35-45) POC ABG pO2 (80-105) Potassium (3.6-5.0) mmol/L Carbon Dioxide (22-30) mmol/L BUN (7-17) mg/dL Creatinine (0.7-1.2) mg/dL Glucose (65-100) mg/dL POC Glucose 195 H 182 H 163 H (70-105) Calcium (8.4-10.2) mg/dL Phosphorus (2.5-4.5) mg/dL 0908/19/17 08/19/17 Range/Units 04:18 05:00 05:00 WBC 40.0 H (4.5-11.0) K/mm3 RBC 2.46 L (3.65-5.03) M/mm3 Hgb 7.3 L (10.1-14.3) gm/dl Hct 22.6 L (30.3-42.9) % MCV (79-97) fl RDW 18.1 H (13.2-15.2) % Seg Neuts % (Manual) (40.0-70.0) % Lymphocytes % (Manual) 8.0 L (13.4-35.0) % Nucleated RBC % 2.0 H (0.0-0.9) % Seg Neutrophils # Man 16.4 H (1.8-7.7) K/mm3 Monocytes # (Manual) 1.2 H (0.0-0.8) K/mm3 Eosinophils # (Manual) 1.2 H (0.0-0.4) K/mm3 POC ABG pH 7.463 H (7.35-7.45) POC ABG pCO2 29.7 L (35-45) POC ABG pO2 134 H (80-105) Potassium 5.1 H D (3.6-5.0) mmol/L Carbon Dioxide 20 L (22-30) mmol/L BUN 40 H (7-17) mg/dL Creatinine 5.3 H (0.7-1.2) mg/dL Glucose 128 H (65-100) mg/dL POC Glucose (70-105) Calcium 7.8 L (8.4-10.2) mg/dL Phosphorus 1.90 L (2.5-4.5) mg/dL 08/19/17 08/19/17 Range/Units 05:19 07:37 WBC 45.0 H* (4.5-11.0) K/mm3 RBC 2.50 L (3.65-5.03) M/mm3 Hgb 7.5 L (10.1-14.3) gm/dl Hct 24.5 L (30.3-42.9) % MCV 98 H (79-97) fl RDW 18.4 H (13.2-15.2) % Seg Neuts % (Manual) 81.5 H (40.0-70.0) % Lymphocytes % (Manual) 4.0 L (13.4-35.0) % Nucleated RBC % 1.0 H (0.0-0.9) % Seg Neutrophils # Man 36.7 H (1.8-7.7) K/mm3 Monocytes # (Manual) (0.0-0.8) K/mm3 Eosinophils # (Manual) (0.0-0.4) K/mm3 POC ABG pH (7.35-7.45) POC ABG pCO2 (35-45) POC ABG pO2 (80-105) Potassium (3.6-5.0) mmol/L Carbon Dioxide (22-30) mmol/L BUN (7-17) mg/dL Creatinine (0.7-1.2) mg/dL Glucose (65-100) mg/dL POC Glucose 142 H (70-105) Calcium (8.4-10.2) mg/dL Phosphorus (2.5-4.5) mg/dL
--- NOTE | 2017-08-19 11:17 | Progress Note ---
Assessment and Plan 62 y/o female originally admitted with hypotension, now back to ICU secondary to worsening hypotension, concern for sepsis, with acute respiratory failure post-op from ex-lap for abdominal distention and possible ileus. 1. Hold on sedation for now 2. Follow up repeat CT scan results from today 3. May need to consider repeat cultures of blood given increase in white count and fever 4. ABG is stable, vent settings are minimal, but do not feel comfortable with extubation at this time, given mental status. Will await HD and see how patient tolerates this first. 5. Follow up any new ID recs 6. Will discuss with renal but may need to consider adding stress dose steroids to help with BP, also could consider sending random cortisol but this is a send out at this hospital. Overall prognosis is guarded CCT [id number] Subjective Date of service: 08/19/17 Principal diagnosis: /anemia, poor oral intake. Interval history: patient remains intubated. Per IMS, having a vascath placed today for HD. Patient is POD #2 from ex-lap. White count remains elevated. Low grade temp of 100.3 this am. Last set of blood cultures, 08/16 and they were negative. Objective Vital Signs - 12hr 08/18/17 08/18/17 08/18/17 23:15 23:25 23:30 Temperature Pulse Rate 111 H 110 H 111 H Pulse Rate [ Apical] Pulse Rate [ From Monitor] Respiratory 23 21 23 Rate Blood Pressure 86/36 86/36 87/44 O2 Sat by Pulse Oximetry 08/18/17 08/19/17 08/19/17 23:45 00:00 00:15 Temperature 99.8 F H Pulse Rate 113 H 113 H 112 H Pulse Rate [ 112 H Apical] Pulse Rate [ 112 H From Monitor] Respiratory 22 20 22 Rate Blood Pressure 87/44 90/48 90/48 O2 Sat by Pulse 98 Oximetry 08/19/17 08/19/17 08/19/17 00:30 00:45 01:00 Temperature Pulse Rate 111 H 111 H 111 H Pulse Rate [ Apical] Pulse Rate [ From Monitor] Respiratory 24 23 23 Rate Blood Pressure 84/39 83/45 79/47 O2 Sat by Pulse Oximetry 08/19/17 08/19/17 08/19/17 01:15 01:30 01:45 Temperature Pulse Rate 114 H 112 H 110 H Pulse Rate [ Apical] Pulse Rate [ From Monitor] Respiratory 25 H 24 25 H Rate Blood Pressure 79/47 97/54 97/54 O2 Sat by Pulse Oximetry 08/19/17 08/19/17 08/19/17 02:00 02:15 02:30 Temperature Pulse Rate 114 H 114 H 112 H Pulse Rate [ Apical] Pulse Rate [ From Monitor] Respiratory 23 32 H 24 Rate Blood Pressure 102/39 102/39 87/45 O2 Sat by Pulse 100 100 Oximetry 08/19/17 08/19/17 08/19/17 02:45 03:00 03:15 Temperature Pulse Rate 110 H 110 H 109 H Pulse Rate [ Apical] Pulse Rate [ From Monitor] Respiratory 24 25 H 20 Rate Blood Pressure 87/45 87/45 92/46 O2 Sat by Pulse 100 96 Oximetry 08/19/17 08/19/17 08/19/17 03:30 03:45 04:00 Temperature Pulse Rate 109 H 110 H 111 H Pulse Rate [ Apical] Pulse Rate [ From Monitor] Respiratory 22 25 H 20 Rate Blood Pressure 86/51 86/51 85/51 O2 Sat by Pulse 100 100 Oximetry 08/19/17 08/19/17 08/19/17 04:01 04:15 04:18 Temperature 100.3 F H Pulse Rate 111 H 112 H Pulse Rate [ Apical] Pulse Rate [ From Monitor] Respiratory 22 26 H Rate Blood Pressure 86/51 86/51 O2 Sat by Pulse 100 100 Oximetry 08/19/17 08/19/17 08/19/17 04:31 04:45 05:00 Temperature Pulse Rate 111 H 109 H 108 H Pulse Rate [ Apical] Pulse Rate [ From Monitor] Respiratory 20 18 20 Rate Blood Pressure 109/55 109/55 109/55 O2 Sat by Pulse 100 100 100 Oximetry 08/19/17 08/19/17 08/19/17 05:15 05:30 05:45 Temperature Pulse Rate 108 H 108 H 108 H Pulse Rate [ Apical] Pulse Rate [ From Monitor] Respiratory 20 20 19 Rate Blood Pressure 105/52 118/53 118/53 O2 Sat by Pulse 100 100 100 Oximetry 08/19/17 08/19/17 08/19/17 06:00 06:15 06:30 Temperature Pulse Rate 107 H 108 H 107 H Pulse Rate [ Apical] Pulse Rate [ From Monitor] Respiratory 20 21 21 Rate Blood Pressure 118/53 100/62 96/59 O2 Sat by Pulse 100 100 100 Oximetry 08/19/17 08/19/17 08/19/17 06:45 07:00 07:10 Temperature Pulse Rate 107 H 107 H Pulse Rate [ 108 H Apical] Pulse Rate [ 108 H From Monitor] Respiratory 21 23 22 Rate Blood Pressure 96/59 98/50 O2 Sat by Pulse 100 100 100 Oximetry 08/19/17 08/19/17 08/19/17 07:15 07:30 07:45 Temperature Pulse Rate 105 H 106 H 107 H Pulse Rate [ Apical] Pulse Rate [ From Monitor] Respiratory 22 20 20 Rate Blood Pressure 98/50 87/54 100/55 O2 Sat by Pulse 100 100 100 Oximetry 08/19/17 08/19/17 08/19/17 08:00 08:01 08:15 Temperature 98.6 F Pulse Rate 106 H 107 H 105 H Pulse Rate [ Apical] Pulse Rate [ From Monitor] Respiratory 21 22 Rate Blood Pressure 92/55 92/55 92/55 O2 Sat by Pulse 100 100 100 Oximetry 08/19/17 08/19/17 08/19/17 08:30 08:45 09:00 Temperature Pulse Rate 103 H 105 H 104 H Pulse Rate [ Apical] Pulse Rate [ From Monitor] Respiratory 17 21 19 Rate Blood Pressure 101/56 101/56 84/60 O2 Sat by Pulse 100 100 100 Oximetry 08/19/17 08/19/17 09:15 09:31 Temperature Pulse Rate 106 H 106 H Pulse Rate [ Apical] Pulse Rate [ From Monitor] Respiratory 25 H 24 Rate Blood Pressure 109/45 109/45 O2 Sat by Pulse 100 100 Oximetry Constitutional: lethargic, appears uncomfortable, other (orally intubated, critically ill on vent. Not sedated) Eyes: non-icteric ENT: oropharynx moist Neck: supple, no lymphadenopathy, no JVD Effort: mildly labored Ascultation: Bilateral: diminished breath sounds, rhonchi (mild) Cardiovascular: regular rate and rhythm Gastrointestinal: absent bowel sounds, tender, other (abdominal incision with dressing noted) Extremities: no cyanosis, no edema, pink and warm Neurologic: other (sedated) CBC and BMP: 08/19/17 07:37 08/19/17 05:00 ABG, PT/INR, D-dimer: ABG POC ABG pH 7.463 (7.35-7.45) H 08/19/17 04:18 POC ABG pCO2 29.7 (35-45) L 08/19/17 04:18 POC ABG pO2 134 (80-105) H 08/19/17 04:18 POC ABG HCO3 21.3 08/19/17 04:18 POC ABG Total CO2 22 08/19/17 04:18 POC ABG O2 Sat 99 08/19/17 04:18 PT/INR, D-dimer PT 16.0 Sec. (12.2-14.9) H 08/17/17 11:20 INR 1.29 (0.87-1.13) H 08/17/17 11:20 Abnormal lab findings: Abnormal Labs 08/08/17 08/08/17 08/09/17 21:23 21:31 11:19 WBC 15.7 H RBC 2.93 L Hgb 8.7 L Hct 26.8 L MCV RDW 19.2 H Plt Count Lymph % (Auto) [place] % (Auto) [place] # Seg Neutrophils % Seg Neuts % (Manual) Lymphocytes % (Manual) Monocytes % (Manual) Nucleated RBC % Seg Neutrophils # Seg Neutrophils # Man Lymphocytes # (Manual) Monocytes # (Manual) Eosinophils # (Manual) Basophils # (Manual) PT INR POC ABG pH 7.490 H POC ABG pCO2 POC ABG pO2 122 H Sodium Potassium Chloride Carbon Dioxide BUN Creatinine Glucose POC Glucose Calcium Phosphorus Magnesium AST Alkaline Phosphatase Troponin T 0.133 H* C-Reactive Protein Total Protein Albumin HDL Cholesterol 26 L 08/09/17 08/10/17 08/10/17 13:25 04:45 04:45 WBC 15.5 H RBC 2.97 L Hgb 8.9 L Hct 27.0 L MCV RDW 19.2 H Plt Count Lymph % (Auto) [place] % (Auto) [place] # Seg Neutrophils % Seg Neuts % (Manual) 73.0 H Lymphocytes % (Manual) 7.0 L Monocytes % (Manual) 14.0 H Nucleated RBC % Seg Neutrophils # Seg Neutrophils # Man 11.3 H Lymphocytes # (Manual) 1.1 L Monocytes # (Manual) 2.2 H Eosinophils # (Manual) Basophils # (Manual) 0.2 H PT INR POC ABG pH POC ABG pCO2 POC ABG pO2 Sodium Potassium 3.3 L Chloride 97.3 L Carbon Dioxide 21 L BUN 23 H Creatinine 6.5 H Glucose POC Glucose Calcium 7.3 L Phosphorus Magnesium AST Alkaline Phosphatase 138 H Troponin T 0.132 H* C-Reactive Protein Total Protein 4.8 L Albumin 1.4 L HDL Cholesterol 08/11/17 08/11/17 08/12/17 04:00 04:00 05:50 WBC 19.3 H RBC 3.10 L Hgb 9.5 L Hct 28.2 L MCV RDW 19.2 H Plt Count 463 H Lymph % (Auto) 7.5 L [place] % (Auto) 14.6 H [place] # 2.8 H Seg Neutrophils % 77.0 H Seg Neuts % (Manual) Lymphocytes % (Manual) Monocytes % (Manual) Nucleated RBC % Seg Neutrophils # 14.8 H Seg Neutrophils # Man Lymphocytes # (Manual) Monocytes # (Manual) Eosinophils # (Manual) Basophils # (Manual) PT INR POC ABG pH POC ABG pCO2 POC ABG pO2 Sodium 136 L 136 L Potassium 3.3 L Chloride 96.3 L 96.6 L Carbon Dioxide BUN 26 H 26 H Creatinine 6.4 H 6.2 H Glucose 135 H 133 H POC Glucose Calcium 8.2 L Phosphorus Magnesium 1.30 L AST Alkaline Phosphatase 139 H Troponin T C-Reactive Protein Total Protein 5.5 L Albumin 1.7 L HDL Cholesterol 08/12/17 08/12/17 08/12/17 05:50 05:50 05:50 WBC 20.1 H RBC 3.06 L Hgb 9.3 L Hct 27.9 L MCV RDW 18.4 H Plt Count 471 H Lymph % (Auto) [place] % (Auto) [place] # Seg Neutrophils % Seg Neuts % (Manual) 85.0 H Lymphocytes % (Manual) 8.0 L Monocytes % (Manual) Nucleated RBC % Seg Neutrophils # Seg Neutrophils # Man 17.1 H Lymphocytes # (Manual) Monocytes # (Manual) 1.0 H Eosinophils # (Manual) Basophils # (Manual) PT 15.2 H INR 1.14 H POC ABG pH POC ABG pCO2 POC ABG pO2 Sodium Potassium Chloride Carbon Dioxide BUN Creatinine Glucose POC Glucose Calcium Phosphorus Magnesium AST Alkaline Phosphatase Troponin T C-Reactive Protein 28.90 H Total Protein Albumin HDL Cholesterol 08/12/17 08/13/17 08/13/17 16:23 06:14 06:14 WBC 21.8 H RBC 3.11 L Hgb 9.4 L Hct 28.2 L MCV RDW 18.2 H Plt Count 492 H Lymph % (Auto) [place] % (Auto) [place] # Seg Neutrophils % Seg Neuts % (Manual) 73.0 H Lymphocytes % (Manual) 2.0 L Monocytes % (Manual) 15 H Nucleated RBC % Seg Neutrophils # Seg Neutrophils # Man 15.9 H Lymphocytes # (Manual) 0.4 L Monocytes # (Manual) 2.4 H Eosinophils # (Manual) Basophils # (Manual) PT INR POC ABG pH POC ABG pCO2 POC ABG pO2 Sodium Potassium Chloride 96.2 L Carbon Dioxide BUN 28 H Creatinine 5.6 H Glucose 114 H POC Glucose Calcium Phosphorus Magnesium AST Alkaline Phosphatase Troponin T C-Reactive Protein 26.10 H Total Protein Albumin HDL Cholesterol 08/13/17 08/14/17 08/14/17 16:39 04:00 04:00 WBC 22.1 H RBC 3.25 L Hgb 9.9 L Hct 29.5 L MCV RDW 17.9 H Plt Count 525 H Lymph % (Auto) [place] % (Auto) [place] # Seg Neutrophils % Seg Neuts % (Manual) 74.0 H Lymphocytes % (Manual) 8.0 L Monocytes % (Manual) 12.0 H Nucleated RBC % Seg Neutrophils # Seg Neutrophils # Man 16.4 H Lymphocytes # (Manual) Monocytes # (Manual) 2.7 H Eosinophils # (Manual) Basophils # (Manual) PT INR POC ABG pH POC ABG pCO2 POC ABG pO2 Sodium 134 L Potassium 3.3 L Chloride 93.3 L Carbon Dioxide BUN 27 H Creatinine 6.0 H Glucose 152 H POC Glucose 151 H Calcium Phosphorus Magnesium AST Alkaline Phosphatase Troponin T C-Reactive Protein Total Protein Albumin HDL Cholesterol 08/15/17 08/16/17 08/16/17 09:10 09:50 09:50 WBC 31.1 H RBC 3.21 L Hgb 9.6 L Hct 29.3 L MCV RDW 18.1 H Plt Count 642 H Lymph % (Auto) [place] % (Auto) [place] # Seg Neutrophils % Seg Neuts % (Manual) 74.0 H Lymphocytes % (Manual) 4.0 L Monocytes % (Manual) 9.0 H Nucleated RBC % Seg Neutrophils # Seg Neutrophils # Man 23.0 H Lymphocytes # (Manual) Monocytes # (Manual) 2.8 H Eosinophils # (Manual) Basophils # (Manual) PT INR POC ABG pH POC ABG pCO2 POC ABG pO2 Sodium 136 L 136 L Potassium 3.5 L Chloride 97.6 L 94.9 L Carbon Dioxide BUN 27 H 28 H Creatinine 5.6 H 5.5 H Glucose 117 H 103 H POC Glucose Calcium Phosphorus Magnesium AST Alkaline Phosphatase 137 H Troponin T C-Reactive Protein Total Protein 5.4 L Albumin 1.5 L HDL Cholesterol 08/16/17 08/17/17 08/17/17 09:50 05:00 06:26 WBC RBC Hgb Hct MCV RDW Plt Count Lymph % (Auto) [place] % (Auto) [place] # Seg Neutrophils % Seg Neuts % (Manual) Lymphocytes % (Manual) Monocytes % (Manual) Nucleated RBC % Seg Neutrophils # Seg Neutrophils # Man Lymphocytes # (Manual) Monocytes # (Manual) Eosinophils # (Manual) Basophils # (Manual) PT INR POC ABG pH POC ABG pCO2 POC ABG pO2 Sodium 134 L Potassium 3.0 L Chloride 97.8 L Carbon Dioxide BUN 30 H Creatinine 5.3 H Glucose 147 H POC Glucose 165 H Calcium 7.5 L Phosphorus Magnesium AST Alkaline Phosphatase Troponin T C-Reactive Protein 32.30 H Total Protein Albumin HDL Cholesterol 08/17/17 08/17/17 08/17/17 10:56 11:20 11:20 WBC 39.1 H RBC 3.10 L Hgb 9.2 L Hct 28.6 L MCV RDW 18.3 H Plt Count 580 H Lymph % (Auto) [place] % (Auto) [place] # Seg Neutrophils % Seg Neuts % (Manual) 89.5 H Lymphocytes % (Manual) 3.5 L Monocytes % (Manual) Nucleated RBC % Seg Neutrophils # Seg Neutrophils # Man 35.0 H Lymphocytes # (Manual) Monocytes # (Manual) 2.5 H Eosinophils # (Manual) Basophils # (Manual) 0.2 H PT 16.0 H INR 1.29 H POC ABG pH 7.464 H POC ABG pCO2 34.1 L POC ABG pO2 75 L Sodium Potassium Chloride Carbon Dioxide BUN Creatinine Glucose POC Glucose Calcium Phosphorus Magnesium AST Alkaline Phosphatase Troponin T C-Reactive Protein Total Protein Albumin HDL Cholesterol 08/17/17 08/17/17 08/17/17 16:57 20:20 20:54 WBC 34.4 H RBC 2.81 L Hgb 8.4 L Hct 26.0 L MCV RDW 17.8 H Plt Count 455 H Lymph % (Auto) [place] % (Auto) [place] # Seg Neutrophils % Seg Neuts % (Manual) Lymphocytes % (Manual) 3.5 L Monocytes % (Manual) Nucleated RBC % 5.0 H Seg Neutrophils # Seg Neutrophils # Man 16.5 H Lymphocytes # (Manual) Monocytes # (Manual) 1.0 H Eosinophils # (Manual) Basophils # (Manual) PT INR POC ABG pH 7.557 H POC ABG pCO2 23.1 L POC ABG pO2 187 H Sodium 135 L Potassium 2.9 L* Chloride Carbon Dioxide 20 L BUN 32 H Creatinine 5.4 H Glucose 129 H POC Glucose Calcium 7.5 L Phosphorus Magnesium 1.50 L AST 85 H Alkaline Phosphatase Troponin T C-Reactive Protein Total Protein 4.0 L D Albumin 1.6 L HDL Cholesterol 08/17/17 08/18/17 08/18/17 23:47 04:26 05:51 WBC RBC Hgb Hct MCV RDW Plt Count Lymph % (Auto) [place] % (Auto) [place] # Seg Neutrophils % Seg Neuts % (Manual) Lymphocytes % (Manual) Monocytes % (Manual) Nucleated RBC % Seg Neutrophils # Seg Neutrophils # Man Lymphocytes # (Manual) Monocytes # (Manual) Eosinophils # (Manual) Basophils # (Manual) PT INR POC ABG pH POC ABG pCO2 29.0 L POC ABG pO2 148 H Sodium Potassium Chloride Carbon Dioxide BUN Creatinine Glucose POC Glucose 188 H 202 H Calcium Phosphorus Magnesium AST Alkaline Phosphatase Troponin T C-Reactive Protein Total Protein Albumin HDL Cholesterol 08/18/17 08/18/17 08/18/17 11:44 17:07 23:45 WBC RBC Hgb Hct MCV RDW Plt Count Lymph % (Auto) [place] % (Auto) [place] # Seg Neutrophils % Seg Neuts % (Manual) Lymphocytes % (Manual) Monocytes % (Manual) Nucleated RBC % Seg Neutrophils # Seg Neutrophils # Man Lymphocytes # (Manual) Monocytes # (Manual) Eosinophils # (Manual) Basophils # (Manual) PT INR POC ABG pH POC ABG pCO2 POC ABG pO2 Sodium Potassium Chloride Carbon Dioxide BUN Creatinine Glucose POC Glucose 195 H 182 H 163 H Calcium Phosphorus Magnesium AST Alkaline Phosphatase Troponin T C-Reactive Protein Total Protein Albumin HDL Cholesterol 08/18/17 08/18/17 08/19/17 Unknown Unknown 04:18 WBC 39.0 H RBC 2.84 L Hgb 8.4 L Hct 26.5 L MCV RDW 18.0 H Plt Count 476 H Lymph % (Auto) [place] % (Auto) [place] # Seg Neutrophils % Seg Neuts % (Manual) Lymphocytes % (Manual) 7.0 L Monocytes % (Manual) 10.0 H Nucleated RBC % 3.0 H Seg Neutrophils # Seg Neutrophils # Man 15.6 H Lymphocytes # (Manual) Monocytes # (Manual) 3.9 H Eosinophils # (Manual) Basophils # (Manual) PT INR POC ABG pH 7.463 H POC ABG pCO2 29.7 L POC ABG pO2 134 H Sodium Potassium Chloride Carbon Dioxide 19 L BUN 34 H Creatinine 5.6 H Glucose 201 H POC Glucose Calcium 7.8 L Phosphorus 1.90 L D Magnesium 1.60 L AST Alkaline Phosphatase Troponin T C-Reactive Protein Total Protein Albumin HDL Cholesterol 08/19/17 08/19/17 08/19/17 05:00 05:00 05:19 WBC 40.0 H RBC 2.46 L Hgb 7.3 L Hct 22.6 L MCV RDW 18.1 H Plt Count Lymph % (Auto) [place] % (Auto) [place] # Seg Neutrophils % Seg Neuts % (Manual) Lymphocytes % (Manual) 8.0 L Monocytes % (Manual) Nucleated RBC % 2.0 H Seg Neutrophils # Seg Neutrophils # Man 16.4 H Lymphocytes # (Manual) Monocytes # (Manual) 1.2 H Eosinophils # (Manual) 1.2 H Basophils # (Manual) PT INR POC ABG pH POC ABG pCO2 POC ABG pO2 Sodium Potassium 5.1 H D Chloride Carbon Dioxide 20 L BUN 40 H Creatinine 5.3 H Glucose 128 H POC Glucose 142 H Calcium 7.8 L Phosphorus 1.90 L Magnesium AST Alkaline Phosphatase Troponin T C-Reactive Protein Total Protein Albumin HDL Cholesterol 08/19/17 07:37 WBC 45.0 H* RBC 2.50 L Hgb 7.5 L Hct 24.5 L MCV 98 H RDW 18.4 H Plt Count Lymph % (Auto) [place] % (Auto) [place] # Seg Neutrophils % Seg Neuts % (Manual) 81.5 H Lymphocytes % (Manual) 4.0 L Monocytes % (Manual) Nucleated RBC % 1.0 H Seg Neutrophils # Seg Neutrophils # Man 36.7 H Lymphocytes # (Manual) Monocytes # (Manual) Eosinophils # (Manual) Basophils # (Manual) PT INR POC ABG pH POC ABG pCO2 POC ABG pO2 Sodium Potassium Chloride Carbon Dioxide BUN Creatinine Glucose POC Glucose Calcium Phosphorus Magnesium AST Alkaline Phosphatase Troponin T C-Reactive Protein Total Protein Albumin HDL Cholesterol
--- NOTE | 2017-08-19 11:59 | Cat Scan Report ---
CT ABDOMEN AND PELVIS WITH CONTRAST INDICATION: Evaluate fluid collection. COMPARISON: 08/16/2017. FINDINGS: Abdomen and pelvis CT performed following oral contrast and intravenous administration of 100 cc of Omnipaque 300. LUNG BASES: Stable heart size. New/increased mild bibasilar pleural effusions and atelectasis/scarring. ABDOMEN: New esophagogastric tube tip along the distal stomach coursing the smaller/medial pouch. Contrast though again noted in the more lateral/excluded compartment in this patient with presumed gastric sleeve surgery. Please correlate. However, overall much improved gastric and small bowel dilatation throughout. Interval removal of lower abdominal peritoneal dialysis catheter with a skin wound now noted on the left, axial image 206, series 2. Instead, a right upper quadrant peritoneal dialysis catheter now seen as on axial image 158, extending towards and terminating in the left upper quadrant adjacent to the spleen. Stable cholecystectomy clips and bilateral double-J ureteral stents. Overall improved ascites with small amount of perihepatic fluid now noted. Liver, spleen, pancreas, adrenals and aorta grossly unremarkable. Somewhat flattened IVC. Severely atrophic bilateral kidneys again noted. Few small subcentimeter retroperitoneal and mesenteric lymph nodes. Oral contrast also seen within proximal jejunum. Remainder nonopacified small bowel again contains fluid and now nondistended. Decompressed colon. A percutaneous G-tube with its balloon placed along the distal stomach is also new. Trace free intraperitoneal air foci noted as on axial images 137 and 147, series 2 in the right hemiabdomen anteriorly, amongst others. PELVIS: Small pelvic free fluid remains though smaller since the prior exam, measuring 25 HU on axial image 306, series 2, amongst others. [place] catheter again decompresses the urinary bladder. Grossly unremarkable uterus and the rectosigmoid. No significant adenopathy. Right groin venous catheter again noted. Mild subcutaneous stranding along the flanks inferiorly and extending to the groins. Multilevel spinal degenerative changes, including lower thoracic spine and lower lumbar facet arthropathy. Midline abdominal skin kelli are new. CONCLUSION: 1. Overall much improved ascites, GI/bowel distention and pneumoperitoneum in this patient with interval replacement of dialysis catheter, as detailed above. A percutaneous G-tube is also new. 2. A new Dobbhoff tube also noted in this patient with presumed gastric bypass/sleeve surgery, as detailed above for which clinical/surgical correlation suggested, as described above. 3. New small bibasilar pleural effusions and atelectasis. 4. Various other incidental findings, as above. Thank you for the opportunity to participate in this patient's care.
--- NOTE | 2017-08-19 12:45 | Progress Note ---
Assessment and Plan Assessment and plan: Septic shock. Patient with abdominal abscess and CAUTI. ID following. Continue antibiotics per ID. Continue IV fluid and pressors to maintain MAP> 65 Acute hypoxic respiratory failure. Patient remains on mechanical ventilation postoperatively. Continue weaning per pulmonary Urinary retention/ ? Infected stents. Urology to coordinate stent exchange this week. Renal us -- no hydro, Bowel obstruction. Patient is status post exploratory lap with removal of PD catheter as a cause of obstruction. Perforation suspected. G-tube placement. Patient with abdominal washout and removal of PD catheter. Left upper quadrant abscess also noted. Repeat CT abdomen today to rule out leak/abscess. End-stage renal disease -Patient is scheduled for Vas-Cath placement today. Resume hemodialysis per nephrology. Ulcerative esophagitis/small gastric ulcer. Patient status post EGD. Biopsy pending. CAUTI. Continue antibiotics Protein calorie malnutrition. -Continue TPN. Leukocytosis. -Worse - ID following -Follow up CBC. History of cervical surgery and postoperative wheelchair bound since then - pain control DVT prophylaxis Disposition - Prognosis is extremely guarded. The high probability of a clinically significant, sudden or life threatening deterioration of the [hemodynamic, respiratory] system(s) required my full and direct attention, intervention and personal management. The aggregate critical care time was [32] minutes. This time is in addition to time spent performing reported procedures but includes the following: [x] Data Review and interpretation [x] Patient assessment and monitoring of vital signs [x] Documentation [x] Medication orders and management History Interval history: Patient is currently intubated on pressors of Levophed. Hospitalist Physical - Constitutional Vitals: Temp Pulse Resp BP Pulse Ox 98.2 F 109 H 22 101/59 100 08/19/17 12:00 08/19/17 12:00 08/19/17 12:00 08/19/17 12:08/19/17 12:00 General appearance: Present: severe distress, well-nourished - EENT Eyes: Present: PERRL, EOM intact ENT: hearing intact, clear oral mucosa, dentition normal - Neck Neck: Present: supple, normal ROM - Respiratory Respiratory effort: normal Respiratory: bilateral: CTA - Cardiovascular Rhythm: regular Heart Sounds: Present: S1 & S2. Absent: gallop, rub - Extremities Extremities: no ischemia, No edema, Full ROM - Abdominal General gastrointestinal: soft, non-tender, non-distended, normal bowel sounds - Integumentary Integumentary: Present: clear, warm, dry - Neurologic Neurologic: CNII-XII intact, moves all extremities Results - Labs CBC & Chem 7: 08/19/17 07:37 08/19/17 05:00 Labs: Laboratory Last Values WBC 45.0 K/mm3 (4.5-11.0) H* 08/19/17 07:37 RBC 2.50 M/mm3 (3.65-5.03) L 08/19/17 07:37 Hgb 7.5 gm/dl (10.1-14.3) L 08/19/17 07:37 Hct 24.5 % (30.3-42.9) L 08/19/17 07:37 MCV 98 fl (79-97) H 08/19/17 07:37 MCH 30 pg (28-32) 08/19/17 07:37 MCHC 31 % (30-34) 08/19/17 07:37 RDW 18.4 % (13.2-15.2) H 08/19/17 07:37 Plt Count 362 K/mm3 (140-440) 08/19/17 07:37 Lymph % (Auto) [place] 08/19/17 07:37 [place]olls % (Auto) [place] 08/19/17 07:37 Eos % (Auto) [place] 08/19/17 07:37 Baso % (Auto) [place] 08/19/17 07:37 Lymph # [place] 08/19/17 07:37 N[place]olls # [place] 08/19/17 07:37 Eos # [place] 08/19/17 07:37 Baso # [place] 08/19/17 07:37 Add Manual Diff Complete 08/19/17 07:37 Total Counted 200 08/19/17 07:37 Seg Neutrophils % [place] 08/19/17 07:37 Seg Neuts % (Manual) 81.5 % (40.0-70.0) H 08/19/17 07:37 Band Neutrophils % 9.5 % 08/19/17 07:37 Lymphocytes % (Manual) 4.0 % (13.4-35.0) L 08/19/17 07:37 Reactive Lymphs % (Man) 0 % 08/19/17 07:37 Monocytes % (Manual) 1.5 % (0.0-7.3) 08/19/17 07:37 Eosinophils % (Manual) 0 % (0.0-4.3) 08/19/17 07:37 Basophils % (Manual) 0 % (0.0-1.8) 08/19/17 05:00 Metamyelocytes % 2.5 % 08/19/17 07:37 Myelocytes % 1.0 % 08/19/17 07:37 Promyelocytes % 0 % 08/19/17 07:37 Blast Cells % 0 % 08/19/17 07:37 Nucleated RBC % 1.0 % (0.0-0.9) H 08/19/17 07:37 Seg Neutrophils # [place] 08/19/17 07:37 Seg Neutrophils # Man 36.7 K/mm3 (1.8-7.7) H 08/19/17 07:37 Band Neutrophils # 4.3 K/mm3 08/19/17 07:37 Lymphocytes # (Manual) 1.8 K/mm3 (1.2-5.4) 08/19/17 07:37 Abs React Lymphs (Man) 0.0 K/mm3 08/19/17 07:37 Monocytes # (Manual) 0.7 K/mm3 (0.0-0.8) 08/19/17 07:37 Eosinophils # (Manual) 0.0 K/mm3 (0.0-0.4) 08/19/17 07:37 Basophils # (Manual) 0.0 K/mm3 (0.0-0.1) 08/19/17 07:37 Metamyelocytes # 1.1 K/mm3 08/19/17 07:37 Myelocytes # 0.5 K/mm3 08/19/17 07:37 Promyelocytes # 0.0 K/mm3 08/19/17 07:37 Blast Cells # 0.0 K/mm3 08/19/17 07:37 WBC Morphology Not Reportable 08/19/17 07:37 Hypersegmented Neuts Not Reportable 08/19/17 07:37 Hyposegmented Neuts Not Reportable 08/19/17 07:37 Hypogranular Neuts Not Reportable 08/19/17 07:37 Smudge Cells 1+ 08/19/17 07:37 Toxic Granulation Not Reportable 08/19/17 07:37 Toxic Vacuolation Not Reportable 08/19/17 07:37 Dohle Bodies Not Reportable 08/19/17 07:37 Pelger-Huet Anomaly Not Reportable 08/19/17 07:37 Ariel Rods Not Reportable 08/19/17 07:37 Platelet Estimate Appears normal 08/19/17 07:37 Clumped Platelets Few 08/19/17 07:37 Plt Clumps, EDTA Not Reportable 08/19/17 07:37 Large Platelets Not Reportable 08/19/17 07:37 Giant Platelets Not Reportable 08/19/17 07:37 Platelet Satelliting Not Reportable 08/19/17 07:37 Plt Morphology Comment Not Reportable 08/19/17 07:37 RBC Morphology Not Reportable 08/19/17 07:37 Dimorphic RBCs Not Reportable 08/19/17 07:37 Polychromasia Few 08/19/17 07:37 Hypochromasia 1+ 08/19/17 07:37 Poikilocytosis Not Reportable 08/19/17 07:37 Anisocytosis 2+ 08/19/17 07:37 Microcytosis Not Reportable 08/19/17 07:37 Macrocytosis Not Reportable 08/19/17 07:37 Spherocytes Not Reportable 08/19/17 07:37 Pappenheimer Bodies Not Reportable 08/19/17 07:37 Sickle Cells Not Reportable 08/19/17 07:37 Target Cells 1+ 08/19/17 07:37 Tear Drop Cells Not Reportable 08/19/17 07:37 Ovalocytes Few 08/19/17 07:37 Helmet Cells Not Reportable 08/19/17 07:37 Vera-Sandborn Bodies Not Reportable 08/19/17 07:37 [place] Rings Not Reportable 08/19/17 07:37 [place] Cells Not Reportable 08/19/17 07:37 Bite Cells Not Reportable 08/19/17 07:37 Crenated Cell Not Reportable 08/19/17 07:37 Elliptocytes Few 08/19/17 07:37 Acanthocytes (Spur) Not Reportable 08/19/17 07:37 Rouleaux Not Reportable 08/19/17 07:37 Hemoglobin C Crystals Not Reportable 08/19/17 07:37 Schistocytes Not Reportable 08/19/17 07:37 Malaria parasites Not Reportable 08/19/17 07:37 Jovanni Bodies Not Reportable 08/19/17 07:37 Hem Pathologist Commnt No 08/19/17 07:37 PT 16.0 Sec. (12.2-14.9) H 08/17/17 11:20 INR 1.29 (0.87-1.13) H 08/17/17 11:20 APTT 35.5 Sec. (24.2-36.6) 08/12/17 05:50 POC ABG pH 7.463 (7.35-7.45) H 08/19/17 04:18 POC ABG pCO2 29.7 (35-45) L 08/19/17 04:18 POC ABG pO2 134 (80-105) H 08/19/17 04:18 POC ABG HCO3 21.3 08/19/17 04:18 POC ABG Total CO2 22 08/19/17 04:18 POC ABG O2 Sat 99 08/19/17 04:18 POC ABG Base Excess -3 08/19/17 04:18 VBG pH 7.462 (7.320-7.420) H 08/08/17 14:52 FiO2 40 % 08/19/17 04:18 Sodium 139 mmol/L (137-145) 08/19/17 05:00 Potassium 5.1 mmol/L (3.6-5.0) H D 08/19/17 05:00 Chloride 105.2 mmol/L (98-107) 08/19/17 05:00 Carbon Dioxide 20 mmol/L (22-30) L 08/19/17 05:00 Anion Gap 19 mmol/L 08/19/17 05:00 BUN 40 mg/dL (7-17) H 08/19/17 05:00 Creatinine 5.3 mg/dL (0.7-1.2) H 08/19/17 05:00 Estimated GFR 10 ml/min 08/19/17 05:00 BUN/Creatinine Ratio 7.54 % 08/19/17 05:00 Glucose 128 mg/dL (65-100) H 08/19/17 05:00 POC Glucose 142 (70-105) H 08/19/17 05:19 Lactic Acid 1.60 mmol/L (0.7-2.0) 08/17/17 11:20 Calcium 7.8 mg/dL (8.4-10.2) L 08/19/17 05:00 Phosphorus 1.90 mg/dL (2.5-4.5) L 08/19/17 05:00 Magnesium 1.70 mg/dL (1.7-2.3) 08/19/17 05:00 Total Bilirubin 0.40 mg/dL (0.1-1.2) 08/17/17 16:57 Direct Bilirubin 0.2 mg/dL (0-0.2) 08/08/17 14:11 Indirect Bilirubin 0.3 mg/dL 08/08/17 14:11 AST 85 units/L (5-40) H 08/17/17 16:57 ALT 17 units/L (7-56) 08/17/17 16:57 Alkaline Phosphatase 96 units/L (35-129) 08/17/17 16:57 Ammonia 25.0 umol/L (25-60) 08/08/17 14:52 Troponin T 0.132 ng/mL (0.00-0.029) H* 08/09/17 13:25 C-Reactive Protein 34.20 mg/dL (0.00-1.30) H 08/19/17 09:52 NT-Pro-B Natriuret Pep 6156 pg/mL (0-900) H 08/08/17 14:11 Total Protein 4.0 g/dL (6.3-8.2) L D 08/17/17 16:57 Albumin 1.6 g/dL (3.9-5) L 08/17/17 16:57 Albumin/Globulin Ratio 0.7 % 08/17/17 16:57 Triglycerides 62 mg/dL (2-149) 08/08/17 21:23 Cholesterol 91 mg/dL (50-199) 08/08/17 21:23 LDL Cholesterol Direct 53 mg/dL (50-130) 08/08/17 21:23 HDL Cholesterol 26 mg/dL (40-59) L 08/08/17 21:23 Cholesterol/HDL Ratio 3.50 % 08/08/17 21:23 Amylase 45 units/L (27-131) 08/16/17 09:50 Lipase 34 units/L (13-60) 08/16/17 09:50 TSH 6.580 mlU/mL (0.270-4.200) H 08/08/17 14:22 Free T4 1.46 ng/dL (0.76-1.46) 08/08/17 14:22 Total Cortisol 30.1 mcg/dL () 08/13/17 06:14 Urine Color Yellow (Yellow) 08/08/17 20:15 Urine Turbidity Turbid (Clear) 08/08/17 20:15 Urine pH 8.0 (5.0-7.0) H 08/08/17 20:15 Ur Specific [place] 1.015 (1.003-1.030) 08/08/17 20:15 Urine Protein 100 mg/dl mg/dL (Negative) 08/08/17 20:15 Urine Glucose (UA) Neg mg/dL (Negative) 08/08/17 20:15 Urine Ketones Neg mg/dL (Negative) 08/08/17 20:15 Urine Blood Mod (Negative) 08/08/17 20:15 Urine Nitrite Neg (Negative) 08/08/17 20:15 Urine Bilirubin Neg (Negative) 08/08/17 20:15 Urine Urobilinogen < 2.0 mg/dL (<2.0) 08/08/17 20:15 Ur Leukocyte Esterase Lg (Negative) 08/08/17 20:15 Urine WBC (Auto) 24.0 /HPF (0.0-6.0) H 08/08/17 20:15 Urine RBC (Auto) 3.0 /HPF (0.0-6.0) 08/08/17 20:15 U Epithel Cells (Auto) 3.0 /HPF (0-13.0) 08/08/17 20:15 Urine Bacteria (Auto) 4+ /HPF (Negative) 08/08/17 20:15 Urine Mucus 3+ /HPF 08/08/17 20:15 Fluid Type Peritoneal 08/08/17 18:18 Fluid Color Straw 08/08/17 18:18 Fluid Appearance Clear 08/08/17 18:18 Fluid pH 7.74 08/08/17 18:18 Fluid WBC 4 /mm3 08/08/17 18:18 Fluid RBC 1 /mm3 08/08/17 18:18 Fluid Seg Neutrophils 12 % 08/08/17 18:18 Fluid Lymphocytes 0 % 08/08/17 18:18 Fluid Reactive Lymphs 0 % 08/08/17 18:18 Fluid Monocytes 1 % 08/08/17 18:18 Fluid Eosinophils 0 % 08/08/17 18:18 Fluid Basophils 0 % 08/08/17 18:18 Fluid Glucose 315 mg/dL (40-70) H 08/08/17 18:18 Random Vancomycin 21 ug/mL (0-40.0) 08/19/17 05:00 Blood Type O POSITIVE 08/17/17 11:20 Antibody Screen Negative 08/17/17 11:20
--- NOTE | 2017-08-19 13:01 | Progress Note ---
Assessment and Plan gastric perforation: poor overall nutritional status making the defect difficult to re-seal despite intra-luminal decompression and external drainage. Awaiting to hear back from radiology as whether there is an additional collection that can be percutaneously drained. will continue abx. sepsis: likely due intra-abdominal process, hypotension requiring pressor support. one spike of low grade fever and worseing leukycytosis. continue abx, and abdominal drainage. wean pressors as tolerated. renal failure: due to vas-cath today, will defer to renal for dialysis and fluid /electrolyte management. daughter and other family members were in them, spoke to them for at least 20 minutes about her guarded condition and overall poor prognosis. They expressed understanding. - Patient Problems (1) SBO (small bowel obstruction) Current Visit: Yes Status: Acute Subjective Date of service: 08/19/17 Patient Reports: Positive: other (non verbal due to inbation but responds to stimulation. Overnight no acute events, but her levophed was increased to maintain her blood pressure.) Objective Vital Signs - 12hr 08/19/17 08/19/17 08/19/17 01:00 01:15 01:30 Temperature Pulse Rate 111 H 114 H 112 H Pulse Rate [ Apical] Pulse Rate [ From Monitor] Respiratory 23 25 H 24 Rate Blood Pressure 79/47 79/47 97/54 O2 Sat by Pulse Oximetry 08/19/17 08/19/17 08/19/17 01:45 02:00 02:15 Temperature Pulse Rate 110 H 114 H 114 H Pulse Rate [ Apical] Pulse Rate [ From Monitor] Respiratory 25 H 23 32 H Rate Blood Pressure 97/54 102/39 102/39 O2 Sat by Pulse 100 100 Oximetry 08/19/17 08/19/17 08/19/17 02:30 02:45 03:00 Temperature Pulse Rate 112 H 110 H 110 H Pulse Rate [ Apical] Pulse Rate [ From Monitor] Respiratory 24 24 25 H Rate Blood Pressure 87/45 87/45 87/45 O2 Sat by Pulse 100 Oximetry 08/19/17 08/19/17 08/19/17 03:15 03:30 03:45 Temperature Pulse Rate 109 H 109 H 110 H Pulse Rate [ Apical] Pulse Rate [ From Monitor] Respiratory 20 22 25 H Rate Blood Pressure 92/46 86/51 86/51 O2 Sat by Pulse 96 100 Oximetry 09/08/19/17 08/19/17 04:00 04:01 04:15 Temperature Pulse Rate 111 H 111 H 112 H Pulse Rate [ Apical] Pulse Rate [ From Monitor] Respiratory 20 22 26 H Rate Blood Pressure 85/51 86/51 86/51 O2 Sat by Pulse 100 100 100 Oximetry 08/19/17 08/19/17 08/19/17 04:18 04:31 04:45 Temperature 100.3 F H Pulse Rate 111 H 109 H Pulse Rate [ Apical] Pulse Rate [ From Monitor] Respiratory 20 18 Rate Blood Pressure 109/55 109/55 O2 Sat by Pulse 100 100 Oximetry 08/19/17 08/19/17 08/19/17 05:00 05:15 05:30 Temperature Pulse Rate 108 H 108 H 108 H Pulse Rate [ Apical] Pulse Rate [ From Monitor] Respiratory 20 20 20 Rate Blood Pressure 109/55 105/52 118/53 O2 Sat by Pulse 100 100 100 Oximetry 08/19/17 08/19/17 08/19/17 05:45 06:00 06:15 Temperature Pulse Rate 108 H 107 H 108 H Pulse Rate [ Apical] Pulse Rate [ From Monitor] Respiratory 19 20 21 Rate Blood Pressure 118/53 118/53 100/62 O2 Sat by Pulse 100 100 100 Oximetry 08/19/17 08/19/17 08/19/17 06:30 06:45 07:00 Temperature Pulse Rate 107 H 107 H 107 H Pulse Rate [ Apical] Pulse Rate [ From Monitor] Respiratory 21 21 23 Rate Blood Pressure 96/59 96/59 98/50 O2 Sat by Pulse 100 100 100 Oximetry 08/19/17 08/19/17 08/19/17 07:10 07:15 07:30 Temperature Pulse Rate 105 H 106 H Pulse Rate [ 108 H Apical] Pulse Rate [ 108 H From Monitor] Respiratory 22 22 20 Rate Blood Pressure 98/50 87/54 O2 Sat by Pulse 100 100 100 Oximetry 08/19/17 08/19/17 08/19/17 07:45 08:00 08:01 Temperature 98.6 F Pulse Rate 107 H 106 H 107 H Pulse Rate [ Apical] Pulse Rate [ From Monitor] Respiratory 20 21 Rate Blood Pressure 100/55 92/55 92/55 O2 Sat by Pulse 100 100 100 Oximetry 08/19/17 08/19/17 08/19/17 08:15 08:30 08:45 Temperature Pulse Rate 105 H 103 H 105 H Pulse Rate [ Apical] Pulse Rate [ From Monitor] Respiratory 22 17 21 Rate Blood Pressure 92/55 101/56 101/56 O2 Sat by Pulse 100 100 100 Oximetry 08/19/17 08/19/17 08/19/17 09:00 09:15 09:31 Temperature Pulse Rate 104 H 106 H 106 H Pulse Rate [ Apical] Pulse Rate [ From Monitor] Respiratory 19 25 H 24 Rate Blood Pressure 84/60 109/45 109/45 O2 Sat by Pulse 100 100 100 Oximetry 08/19/17 08/19/17 08/19/17 09:45 10:01 10:49 Temperature Pulse Rate 107 H 109 H 112 H Pulse Rate [ Apical] Pulse Rate [ From Monitor] Respiratory 22 27 H 22 Rate Blood Pressure 132/45 154/135 93/54 O2 Sat by Pulse 100 100 Oximetry 08/19/17 08/19/17 08/19/17 11:00 11:15 11:31 Temperature Pulse Rate 110 H 111 H 112 H Pulse Rate [ Apical] Pulse Rate [ From Monitor] Respiratory 17 26 H 26 H Rate Blood Pressure 108/65 108/65 100/47 O2 Sat by Pulse 100 100 Oximetry 08/19/17 08/19/17 08/19/17 11:33 11:45 12:00 Temperature 98.2 F Pulse Rate 111 H 109 H 109 H Pulse Rate [ Apical] Pulse Rate [ From Monitor] Respiratory 25 H 22 Rate Blood Pressure 110/47 100/47 101/59 O2 Sat by Pulse 100 100 100 Oximetry - General physical appearance no distress, moderate pain - Respiratory other (stable on vent) - Abdomen other (midline incision intact with some mild edemetous weeping at the midline, G-tube in place with bilious fluid, NG tube with bilious drainage, MERVIN drain with light brown fluid, not bilious on exam, but bilious this morning. ) - Integumentary other (overall edema) - Labs 08/19/17 07:37 08/19/17 05:00 Diabetes panel 08/19/17 Range/Units 05:00 Sodium 139 (137-145) mmol/L Potassium 5.1 H D (3.6-5.0) mmol/L Chloride 105.2 (98-107) mmol/L Carbon Dioxide 20 L (22-30) mmol/L BUN 40 H (7-17) mg/dL Creatinine 5.3 H (0.7-1.2) mg/dL Glucose 128 H (65-100) mg/dL Calcium 7.8 L (8.4-10.2) mg/dL Calcium panel 08/19/17 Range/Units 05:00 Calcium 7.8 L (8.4-10.2) mg/dL Phosphorus 1.90 L (2.5-4.5) mg/dL Pituitary panel 08/19/17 Range/Units 05:00 Sodium 139 (137-145) mmol/L Potassium 5.1 H D (3.6-5.0) mmol/L Chloride 105.2 (98-107) mmol/L Carbon Dioxide 20 L (22-30) mmol/L BUN 40 H (7-17) mg/dL Creatinine 5.3 H (0.7-1.2) mg/dL Glucose 128 H (65-100) mg/dL Calcium 7.8 L (8.4-10.2) mg/dL Adrenal panel 08/19/17 Range/Units 05:00 Sodium 139 (137-145) mmol/L Potassium 5.1 H D (3.6-5.0) mmol/L Chloride 105.2 (98-107) mmol/L Carbon Dioxide 20 L (22-30) mmol/L BUN 40 H (7-17) mg/dL Creatinine 5.3 H (0.7-1.2) mg/dL Glucose 128 H (65-100) mg/dL Calcium 7.8 L (8.4-10.2) mg/dL - Imaging CT scan - abdomen: pending (looked at CT scan, awaiting official read from radiology)
[2017-08-19] MEDS: MERREM 1,000 MG in NACL 0.9% 100 ML IV SCH (13:59)
--- NOTE | 2017-08-19 15:05 | Event Note ---
Date: 08/19/17 62 year old female with multiple medical problems including gastric perforation with fluid collection status post surgery with bilious output from the MERVIN drain. Patient also requires hemodialysis and needs to be transitioned from PD to HD secondary to gastric surgery. On pressors. Reviewed CT scan. No drainable fluid collections. There is some free fluid in the abdomen and in the pelvis. Will exchange the right femoral TLC to a right femoral temporary trialysis HD catheter.
--- NOTE | 2017-08-19 15:24 | Operative Report ---
Operative Report Operative Report: EXAM: 1. Exchange of a right common femoral nontunneled noncuffed 7 Fr triple lumen catheter to a nontuneled noncuffed 13 Fr triple lumen hemodialysis catheter. DATE: 08/18/17 INDICATION: 62 year old female with need for hemodialysis while on pressors. MEDICATIONS: Local anesthetic (1% lidocaine). DEVICES: Triple lumen nontunneled noncuffed hemodialysis catheter TISSUE REWINDER: TIRSO KENNEDY MD CONTRAST: None PROCEDURE: The risks, benefits, and alternatives were discussed and informed consent was obtained. The patient was prepped and draped in a sterile fashion. The existing right common femoral triple lumen catheter was prepped and draped in a sterile fashion. Through the central lumen, a 0.035 inch wire was advanced. 7 [place] catheter was removed over the wire. Over the 0.035 inch wire, dilatation was performed. The 13 [place] catheter was advanced over the wire. 3-0 nylon suture was used to secure the catheter. The catheter was charged with saline in the central lumen, and 1000 units per mL of space in the dialysis lumens. Biopatch and tegaderm were applied. FINDINGS: 1. Successful catheter exchange IMPRESSION: 1. Successful exchange of a right common femoral nontunneled noncuffed 7 Fr triple lumen catheter to a nontuneled noncuffed 13 Fr triple lumen hemodialysis catheter. PLAN: The patient's groin is at high risk for infection given her severe morbid obesity, but the patient is on pressors, and therefore new access can be considered once patient has stabilized. Recommend placing a jugular PermCath once patient's infectious signs and symptoms jody.
[2017-08-19] MEDS ORDERED: Vasostrict 20 UNIT in NACL 0.9% 100 ML IV SCH (19:23)
[2017-08-19] MEDS ORDERED: TPN ADULT 1,800 ML IV SCH (20:00)
--- NOTE | 2017-08-19 23:54 | Progress Note ---
Assessment and Plan - Patient Problems (1) End-stage renal disease on peritoneal dialysis Current Visit: Yes Status: Chronic Plan to address problem: continue PD Follow renal. S/p PD catheter placement. (2) Leukocytosis Current Visit: Yes Status: Acute Qualifiers: Leukocytosis type: L Plan to address problem: See notes above. make sure that PD access is clean also. see notes. Probably infection from the infected PD catheter. (3) Anemia Current Visit: Yes Status: Acute Qualifiers: Anemia type: A Iron deficiency anemia type: I Vitamin B12 deficiency anemia type: V Folate deficiency anemia type: F Bone marrow failure anemia type: B Hemolytic anemia type: H Other causes of anemia: O Chronic kidney disease stage: C Plan to address problem: see notes , monitor labs,. Subjective Date of service: 08/19/17 Principal diagnosis: /anemia, poor oral intake. Interval history: Patient seen today/examined, labs reviewed, case d/w she, and family.complaints of abdominal pain. Patient resting in bed in the ICU, post vascular procedure. labs reviewed, Reactive thrombocytosis, anemia of CD, leukocytosis from infection vs inflamatory process. Patient seen/examined, in bed in the ICU, on the vent post surgery.Labs reviewed , notes reviewed. will continue to monitor labs/patient with you. Replacement transfusion, if /when indicated. patient seen/examined, SBP75, on pressors., lethargic, on the vent, labs reviewed, wbc 39,000 Patient seen/examined, case reviewed, d/w her sister at the bed side. Objective - Constitutional Vitals: Vital Signs - 12hr 08/19/17 08/19/17 08/19/17 11:55 12:00 12:15 Temperature 98.2 F Pulse Rate 109 H 108 H Pulse Rate [ 111 H Apical] Pulse Rate [ From Monitor] Respiratory 25 H 22 23 Rate Respiratory Rate [ Generalized] Blood Pressure 101/59 101/59 O2 Sat by Pulse 100 100 100 Oximetry 08/19/17 08/19/17 08/19/17 12:30 12:45 13:01 Temperature Pulse Rate 108 H 106 H 105 H Pulse Rate [ Apical] Pulse Rate [ From Monitor] Respiratory 24 22 20 Rate Respiratory Rate [ Generalized] Blood Pressure 89/65 101/59 122/52 O2 Sat by Pulse 100 100 94 Oximetry 08/19/17 08/19/17 08/19/17 13:15 13:30 13:46 Temperature Pulse Rate 106 H 105 H 105 H Pulse Rate [ Apical] Pulse Rate [ From Monitor] Respiratory 21 22 21 Rate Respiratory Rate [ Generalized] Blood Pressure 89/65 98/58 98/58 O2 Sat by Pulse 100 100 100 Oximetry 08/19/17 08/19/17 08/19/17 14:00 14:16 14:30 Temperature Pulse Rate 106 H 104 H 106 H Pulse Rate [ Apical] Pulse Rate [ From Monitor] Respiratory 21 19 21 Rate Respiratory Rate [ Generalized] Blood Pressure 95/58 95/58 95/58 O2 Sat by Pulse 99 100 100 Oximetry 08/19/17 08/19/17 08/19/17 14:46 15:00 15:16 Temperature Pulse Rate 106 H 106 H 105 H Pulse Rate [ Apical] Pulse Rate [ From Monitor] Respiratory 24 21 23 Rate Respiratory Rate [ Generalized] Blood Pressure 93/49 106/36 106/36 O2 Sat by Pulse 100 100 100 Oximetry 08/19/17 08/19/17 08/19/17 15:30 15:46 16:00 Temperature 98.9 F Pulse Rate 106 H 105 H 105 H Pulse Rate [ Apical] Pulse Rate [ From Monitor] Respiratory 22 22 21 Rate Respiratory Rate [ Generalized] Blood Pressure 106/36 93/49 90/50 O2 Sat by Pulse 100 100 100 Oximetry 08/19/17 08/19/17 08/19/17 16:16 16:30 16:46 Temperature Pulse Rate 102 H 104 H 104 H Pulse Rate [ Apical] Pulse Rate [ From Monitor] Respiratory 23 21 22 Rate Respiratory Rate [ Generalized] Blood Pressure 90/50 92/48 92/48 O2 Sat by Pulse 100 99 100 Oximetry 08/19/17 08/19/17 08/19/17 17:00 17:16 17:30 Temperature 98.9 F Pulse Rate 105 H 104 H 103 H Pulse Rate [ Apical] Pulse Rate [ From Monitor] Respiratory 21 22 23 Rate Respiratory Rate [ Generalized] Blood Pressure 99/58 99/58 76/51 O2 Sat by Pulse 100 100 Oximetry 08/19/17 08/19/17 08/19/17 17:45 18:00 18:15 Temperature Pulse Rate 109 H 109 H 110 H Pulse Rate [ Apical] Pulse Rate [ From Monitor] Respiratory 25 H 24 24 Rate Respiratory Rate [ Generalized] Blood Pressure 87/58 92/51 90/45 O2 Sat by Pulse 100 100 100 Oximetry 08/19/17 08/19/17 08/19/17 18:30 18:45 19:00 Temperature Pulse Rate 111 H 111 H 109 H Pulse Rate [ Apical] Pulse Rate [ From Monitor] Respiratory 24 21 24 Rate Respiratory Rate [ Generalized] Blood Pressure 78/48 80/54 84/54 O2 Sat by Pulse 99 99 Oximetry 08/19/17 08/19/17 08/19/17 19:15 19:20 19:30 Temperature 100.1 F H Pulse Rate 112 H 114 H 112 H Pulse Rate [ Apical] Pulse Rate [ 113 H From Monitor] Respiratory 24 18 22 Rate Respiratory 22 Rate [ Generalized] Blood Pressure 81/50 78/77 86/59 O2 Sat by Pulse 100 99 Oximetry 08/19/17 08/19/17 08/19/17 19:37 19:45 20:00 Temperature 100 F H Pulse Rate 114 H 112 H Pulse Rate [ Apical] Pulse Rate [ From Monitor] Respiratory 24 22 Rate Respiratory Rate [ Generalized] Blood Pressure 88/58 86/56 O2 Sat by Pulse 99 Oximetry 08/19/17 08/19/17 08/19/17 20:15 20:30 20:45 Temperature Pulse Rate 113 H 111 H 109 H Pulse Rate [ Apical] Pulse Rate [ From Monitor] Respiratory 24 21 21 Rate Respiratory Rate [ Generalized] Blood Pressure 96/54 96/54 110/86 O2 Sat by Pulse 98 100 98 Oximetry 08/19/17 08/19/17 08/19/17 20:50 21:00 21:16 Temperature Pulse Rate 110 H 109 H 110 H Pulse Rate [ Apical] Pulse Rate [ From Monitor] Respiratory 21 27 H Rate Respiratory Rate [ Generalized] Blood Pressure 121/83 121/83 112/79 O2 Sat by Pulse 99 99 99 Oximetry 08/19/17 08/19/17 08/19/17 21:22 21:30 21:45 Temperature Pulse Rate 107 H 109 H 107 H Pulse Rate [ Apical] Pulse Rate [ From Monitor] Respiratory 23 22 Rate Respiratory Rate [ Generalized] Blood Pressure 110/73 114/75 O2 Sat by Pulse 100 99 98 Oximetry 08/19/17 08/19/17 08/19/17 22:00 22:15 22:30 Temperature Pulse Rate 110 H 109 H 110 H Pulse Rate [ Apical] Pulse Rate [ From Monitor] Respiratory 23 21 22 Rate Respiratory Rate [ Generalized] Blood Pressure 118/71 123/75 115/77 O2 Sat by Pulse 98 99 99 Oximetry 08/19/17 08/19/17 08/19/17 22:45 23:00 23:15 Temperature Pulse Rate 108 H 109 H 109 H Pulse Rate [ Apical] Pulse Rate [ From Monitor] Respiratory 22 23 23 Rate Respiratory Rate [ Generalized] Blood Pressure 114/78 126/80 105/76 O2 Sat by Pulse 99 99 Oximetry 08/19/17 23:25 Temperature Pulse Rate 109 H Pulse Rate [ Apical] Pulse Rate [ From Monitor] Respiratory Rate Respiratory 24 Rate [ Generalized] Blood Pressure O2 Sat by Pulse 100 Oximetry General appearance: Present: severe distress, well-nourished - EENT Eyes: PERRL, EOM intact ENT: hearing intact, clear oral mucosa Ears: bilateral: normal - Neck Neck: supple, normal ROM - Respiratory Respiratory: bilateral: other (on vent) - Breasts Breasts: deferred - Cardiovascular Rhythm: regular Heart Sounds: Present: S1 & S2. Absent: gallop, rub Extremities: pulses intact, No edema, normal color, Full ROM - Gastrointestinal General gastrointestinal: Present: soft, non-tender, non-distended, normal bowel sounds - Genitourinary Female genitourinary: deferred - Integumentary Integumentary: clear, warm, dry - Labs CBC & Chem 7: 08/19/17 07:37 08/19/17 05:00 Labs: Abnormal lab results 08/18/17 08/19/17 08/19/17 Range/Units 23:45 04:18 05:00 WBC 40.0 H (4.5-11.0) K/mm3 RBC 2.46 L (3.65-5.03) M/mm3 Hgb 7.3 L (10.1-14.3) gm/dl Hct 22.6 L (30.3-42.9) % MCV (79-97) fl RDW 18.1 H (13.2-15.2) % Seg Neuts % (Manual) (40.0-70.0) % Lymphocytes % (Manual) 8.0 L (13.4-35.0) % Nucleated RBC % 2.0 H (0.0-0.9) % Seg Neutrophils # Man 16.4 H (1.8-7.7) K/mm3 Monocytes # (Manual) 1.2 H (0.0-0.8) K/mm3 Eosinophils # (Manual) 1.2 H (0.0-0.4) K/mm3 POC ABG pH 7.463 H (7.35-7.45) POC ABG pCO2 29.7 L (35-45) POC ABG pO2 134 H (80-105) Potassium (3.6-5.0) mmol/L Carbon Dioxide (22-30) mmol/L BUN (7-17) mg/dL Creatinine (0.7-1.2) mg/dL Glucose (65-100) mg/dL POC Glucose 163 H (70-105) Calcium (8.4-10.2) mg/dL Phosphorus (2.5-4.5) mg/dL C-Reactive Protein (0.00-1.30) mg/dL 08/19/17 08/19/17 08/19/17 Range/Units 05:00 05:19 07:37 WBC 45.0 H* (4.5-11.0) K/mm3 RBC 2.50 L (3.65-5.03) M/mm3 Hgb 7.5 L (10.1-14.3) gm/dl Hct 24.5 L (30.3-42.9) % MCV 98 H (79-97) fl RDW 18.4 H (13.2-15.2) % Seg Neuts % (Manual) 81.5 H (40.0-70.0) % Lymphocytes % (Manual) 4.0 L (13.4-35.0) % Nucleated RBC % 1.0 H (0.0-0.9) % Seg Neutrophils # Man 36.7 H (1.8-7.7) K/mm3 Monocytes # (Manual) (0.0-0.8) K/mm3 Eosinophils # (Manual) (0.0-0.4) K/mm3 POC ABG pH (7.35-7.45) POC ABG pCO2 (35-45) POC ABG pO2 (80-105) Potassium 5.1 H D (3.6-5.0) mmol/L Carbon Dioxide 20 L (22-30) mmol/L BUN 40 H (7-17) mg/dL Creatinine 5.3 H (0.7-1.2) mg/dL Glucose 128 H (65-100) mg/dL POC Glucose 142 H (70-105) Calcium 7.8 L (8.4-10.2) mg/dL Phosphorus 1.90 L (2.5-4.5) mg/dL C-Reactive Protein (0.00-1.30) mg/dL 08/19/17 08/19/17 Range/Units 09:52 18:12 WBC (4.5-11.0) K/mm3 RBC (3.65-5.03) M/mm3 Hgb (10.1-14.3) gm/dl Hct (30.3-42.9) % MCV (79-97) fl RDW (13.2-15.2) % Seg Neuts % (Manual) (40.0-70.0) % Lymphocytes % (Manual) (13.4-35.0) % Nucleated RBC % (0.0-0.9) % Seg Neutrophils # Man (1.8-7.7) K/mm3 Monocytes # (Manual) (0.0-0.8) K/mm3 Eosinophils # (Manual) (0.0-0.4) K/mm3 POC ABG pH (7.35-7.45) POC ABG pCO2 (35-45) POC ABG pO2 (80-105) Potassium (3.6-5.0) mmol/L Carbon Dioxide (22-30) mmol/L BUN (7-17) mg/dL Creatinine (0.7-1.2) mg/dL Glucose (65-100) mg/dL POC Glucose 137 H (70-105) Calcium (8.4-10.2) mg/dL Phosphorus (2.5-4.5) mg/dL C-Reactive Protein 34.20 H (0.00-1.30) mg/dL
[2017-08-20] MEDS: MORPHINE IV PRN ×3 (00:48→19:59)
[2017-08-20] MEDS: LEVOPHED 8 MG in NACL 0.9% 250ML 242 ML IV SCH ×3 (01:48→12:08)
[2017-08-20] MEDS: DIANEAL PD-2 W/1.5% DEXTROSE IP SCH (02:00)
[2017-08-20 03:58] LABS: Hematocrit 23.4 % (30.3-42.9); Hemoglobin 7.6 gm/dl (10.1-14.3); Mean Corpuscular HGB Conc 32 % (30-34); Mean Corpuscular Hemoglobin 30 pg (28-32); Mean Corpuscular Volume 92 fl (79-97); Platelet Count 336 K/mm3 (140-440); Red Blood Count 2.55 M/mm3 (3.65-5.03); Red Cell Distribution Width 18.4 % (13.2-15.2)
[2017-08-20 04:07] LABS: Chloride 100.8 mmol/L (98-107); Magnesium 1.6 mg/dL (1.7-2.3); Phosphorous 1.7 mg/dL (2.5-4.5); Potassium 4.4 mmol/L (3.6-5.0)
[2017-08-20 04:34] LABS: ISTAT Base Excess -1; ISTAT HCO3 22.6; ISTAT PCO2 29.1 (35-45); ISTAT PH 7.499 (7.35-7.45); ISTAT PO2 100 (80-105); ISTAT SO2 98; ISTAT TCO2 23
[2017-08-20 05:09] LABS: Blastocytes % (Manual) 0 %
[2017-08-20 05:10] LABS: Target Cells 1+
[2017-08-20 05:13] LABS: Diff Status Complete; Platelet Clumps Few; Platelet Estimate Consistent w Auto; Polychromasia Few; Stomatocytes Few
--- NOTE | 2017-08-20 06:42 | Progress Note ---
Assessment and Plan - Patient Problems (1) ESRD (end stage renal disease) on dialysis Current Visit: Yes Status: Acute Plan to address problem: Patient was switched from PD to hemodialysis. Last dialyzed yesterday. Plan to do hemodialysis three times a week. Patient is on TPN. (2) Hyperkalemia Current Visit: Yes Status: Acute Plan to address problem: Improved with hemodialysis. (3) Anemia Current Visit: No Status: Chronic Qualifiers: Anemia type: due to chronic kidney disease Iron deficiency anemia type: I Vitamin B12 deficiency anemia type: V Folate deficiency anemia type: F Bone marrow failure anemia type: B Hemolytic anemia type: H Other causes of anemia: O Chronic kidney disease stage: on chronic dialysis Qualified Code(s ): N18.6 - End stage renal disease; D63.1 - Anemia in chronic kidney disease; Z99.2 - Dependence on renal dialysis Plan to address problem: Epogen. (4) Hypotension Current Visit: Yes Status: Chronic Qualifiers: Hypotension type: H Trimester: T Plan to address problem: On IV levophed. (5) Leukocytosis Current Visit: Yes Status: Acute Qualifiers: Leukocytosis type: unspecified Qualified Code(s): D72.829 - Elevated white blood cell count, unspecified (6) Poor appetite Current Visit: Yes Status: Chronic Subjective Date of service: 08/20/17 Principal diagnosis: /anemia, poor oral intake. Interval history: Patient was seen and examined at the bedside. Objective - Vital Signs Vital signs: Vital Signs - 12hr 08/19/17 08/19/17 08/19/17 18:45 19:00 19:15 Temperature Pulse Rate 111 H 109 H 112 H Pulse Rate [ 113 H From Monitor] Respiratory 21 24 24 Rate Respiratory 22 Rate [ Generalized] Blood Pressure 80/54 84/54 81/50 O2 Sat by Pulse 99 100 Oximetry 08/19/17 08/19/17 08/19/17 19:20 19:30 19:37 Temperature 100.1 F H 100 F H Pulse Rate 114 H 112 H Pulse Rate [ From Monitor] Respiratory 18 22 Rate Respiratory Rate [ Generalized] Blood Pressure 78/77 86/59 O2 Sat by Pulse 99 Oximetry 08/19/17 08/19/17 08/19/17 19:45 20:00 20:15 Temperature Pulse Rate 114 H 112 H 113 H Pulse Rate [ From Monitor] Respiratory 24 22 24 Rate Respiratory Rate [ Generalized] Blood Pressure 88/58 86/56 96/54 O2 Sat by Pulse 99 98 Oximetry 08/19/17 08/19/17 08/19/17 20:30 20:45 20:50 Temperature Pulse Rate 111 H 109 H 110 H Pulse Rate [ From Monitor] Respiratory 21 21 Rate Respiratory Rate [ Generalized] Blood Pressure 96/54 110/86 121/83 O2 Sat by Pulse 100 98 99 Oximetry 08/19/17 08/19/17 08/19/17 21:00 21:16 21:22 Temperature Pulse Rate 109 H 110 H 107 H Pulse Rate [ From Monitor] Respiratory 21 27 H Rate Respiratory Rate [ Generalized] Blood Pressure 121/83 112/79 O2 Sat by Pulse 99 99 100 Oximetry 08/19/17 08/19/17 08/19/17 21:30 21:45 22:00 Temperature Pulse Rate 109 H 107 H 110 H Pulse Rate [ From Monitor] Respiratory 23 22 23 Rate Respiratory Rate [ Generalized] Blood Pressure 110/73 114/75 118/71 O2 Sat by Pulse 99 98 98 Oximetry 08/19/17 08/19/17 08/19/17 22:15 22:30 22:45 Temperature Pulse Rate 109 H 110 H 108 H Pulse Rate [ From Monitor] Respiratory 21 22 22 Rate Respiratory Rate [ Generalized] Blood Pressure 123/75 115/77 114/78 O2 Sat by Pulse 99 99 Oximetry 08/19/17 08/19/17 08/19/17 23:00 23:02 23:15 Temperature Pulse Rate 109 H 108 H 109 H Pulse Rate [ From Monitor] Respiratory 23 21 23 Rate Respiratory Rate [ Generalized] Blood Pressure 126/80 126/80 105/76 O2 Sat by Pulse 99 100 99 Oximetry 08/19/17 08/19/17 08/19/17 23:18 23:25 23:30 Temperature Pulse Rate 106 H 109 H 108 H Pulse Rate [ From Monitor] Respiratory 20 23 Rate Respiratory 24 Rate [ Generalized] Blood Pressure 126/80 110/77 O2 Sat by Pulse 100 100 100 Oximetry 08/19/17 08/19/17 08/20/17 23:46 23:55 00:00 Temperature 99.8 F H Pulse Rate 107 H 112 H Pulse Rate [ From Monitor] Respiratory 23 28 H Rate Respiratory Rate [ Generalized] Blood Pressure 113/87 125/77 O2 Sat by Pulse 97 100 Oximetry 08/20/17 08/20/17 08/20/17 00:15 00:30 00:45 Temperature Pulse Rate 111 H 109 H 110 H Pulse Rate [ From Monitor] Respiratory 26 H 25 H 25 H Rate Respiratory Rate [ Generalized] Blood Pressure 133/75 133/75 108/77 O2 Sat by Pulse 99 100 99 Oximetry 08/20/17 08/20/17 08/20/17 00:48 01:00 01:15 Temperature Pulse Rate 111 H 110 H Pulse Rate [ From Monitor] Respiratory 23 23 24 Rate Respiratory Rate [ Generalized] Blood Pressure 133/75 114/56 O2 Sat by Pulse 100 99 Oximetry 08/20/17 08/20/17 08/20/17 01:18 01:30 01:46 Temperature Pulse Rate 110 H 109 H Pulse Rate [ From Monitor] Respiratory 24 22 24 Rate Respiratory Rate [ Generalized] Blood Pressure 104/71 96/64 O2 Sat by Pulse 99 99 Oximetry 08/20/17 08/20/17 08/20/17 02:00 02:15 02:30 Temperature Pulse Rate 108 H 109 H 110 H Pulse Rate [ From Monitor] Respiratory 21 27 H 30 H Rate Respiratory Rate [ Generalized] Blood Pressure 96/64 122/68 122/78 O2 Sat by Pulse 100 100 99 Oximetry 08/20/17 08/20/17 08/20/17 02:45 03:00 03:16 Temperature Pulse Rate 108 H 106 H 106 H Pulse Rate [ From Monitor] Respiratory 28 H 23 22 Rate Respiratory Rate [ Generalized] Blood Pressure 125/88 125/88 131/87 O2 Sat by Pulse 100 100 Oximetry 08/20/17 08/20/17 08/20/17 03:30 03:36 03:44 Temperature 99.6 F Pulse Rate 107 H 108 H Pulse Rate [ From Monitor] Respiratory 22 Rate Respiratory Rate [ Generalized] Blood Pressure 132/92 132/92 O2 Sat by Pulse 100 100 Oximetry 08/20/17 08/20/17 08/20/17 03:46 04:00 04:15 Temperature Pulse Rate 109 H 105 H 105 H Pulse Rate [ From Monitor] Respiratory 17 21 19 Rate Respiratory Rate [ Generalized] Blood Pressure 166/90 131/87 138/84 O2 Sat by Pulse 100 100 100 Oximetry 08/20/17 08/20/17 08/20/17 04:30 04:45 05:00 Temperature Pulse Rate 103 H 105 H 104 H Pulse Rate [ From Monitor] Respiratory 24 20 19 Rate Respiratory Rate [ Generalized] Blood Pressure 151/93 152/82 143/90 O2 Sat by Pulse 100 99 99 Oximetry 08/20/17 05:15 Temperature Pulse Rate 104 H Pulse Rate [ From Monitor] Respiratory 21 Rate Respiratory Rate [ Generalized] Blood Pressure 151/88 O2 Sat by Pulse 99 Oximetry - General Appearance General appearance: well-developed, appears stated age, obese, intubated (FiO2 30%), other (right femoral dialysis catheter) EENT: ATNC Neck: supple Respiratory: Present: Clear to Ascultation Cardiology: regular, S1S2, no murmurs Gastrointestinal: obese, other (PEG tube noted) Integumentary: no rash Neurologic: other (opens eyes) Musculoskeletal: other (1+ edema of both LEs noted) - Lab 08/20/17 03:20 08/20/17 03:20 Most recent lab results Calcium 8.0 mg/dL (8.4-10.2) L 08/20/17 03:20 Phosphorus 1.70 mg/dL (2.5-4.5) L 08/20/17 03:20 Magnesium 1.60 mg/dL (1.7-2.3) L 08/20/17 03:20
[2017-08-20] MEDS ORDERED: SODIUM PHOSPHATE 15 MMOL in NACL 0.9% 250ML 250 ML IV ONE (06:43)
--- NOTE | 2017-08-20 09:30 | Progress Note ---
Assessment and Plan 62 y/o female originally admitted with hypotension, now back to ICU secondary to worsening hypotension, concern for sepsis, with acute respiratory failure post-op from ex-lap for abdominal distention and possible ileus. 1. Hold on sedation for now, PRN meds for pains with wound changes 2. Reviewed rads note from yesterday. 3. May need to consider repeat cultures of blood given increase in white count and fever, will defer to ID 4. Will attempt PSV trials today. 5. Follow up any new ID recs 6. Will discuss with renal but may need to consider adding stress dose steroids to help with BP, also could consider sending random cortisol but this is a send out at this hospital. Also will need to ask surgery how they feel about steroids as well as it could impede their healing process Overall prognosis is guarded CCT 31 Subjective Date of service: 08/20/17 Principal diagnosis: /anemia, poor oral intake. Interval history: More awake today. Did have HD but only 500 removed per daughter at bedside. Daughter very concerned about swelling this am. Still on levophed and now on vasopressin Objective Vital Signs - 12hr 08/19/17 08/19/17 08/19/17 21:30 21:45 22:00 Temperature Pulse Rate 109 H 107 H 110 H Pulse Rate [ Apical] Pulse Rate [ From Monitor] Respiratory 23 22 23 Rate Respiratory Rate [ Generalized] Blood Pressure 110/73 114/75 118/71 O2 Sat by Pulse 99 98 98 Oximetry 08/19/17 08/19/17 08/19/17 22:15 22:30 22:45 Temperature Pulse Rate 109 H 110 H 108 H Pulse Rate [ Apical] Pulse Rate [ From Monitor] Respiratory 21 22 22 Rate Respiratory Rate [ Generalized] Blood Pressure 123/75 115/77 114/78 O2 Sat by Pulse 99 99 Oximetry 08/19/17 08/19/17 08/19/17 23:00 23:02 23:15 Temperature Pulse Rate 109 H 108 H 109 H Pulse Rate [ Apical] Pulse Rate [ From Monitor] Respiratory 23 21 23 Rate Respiratory Rate [ Generalized] Blood Pressure 126/80 126/80 105/76 O2 Sat by Pulse 99 100 99 Oximetry 08/19/17 08/19/17 08/19/17 23:18 23:25 23:30 Temperature Pulse Rate 106 H 109 H 108 H Pulse Rate [ Apical] Pulse Rate [ From Monitor] Respiratory 20 23 Rate Respiratory 24 Rate [ Generalized] Blood Pressure 126/80 110/77 O2 Sat by Pulse 100 100 100 Oximetry 08/19/17 08/19/17 08/20/17 23:46 23:55 00:00 Temperature 99.8 F H Pulse Rate 107 H 112 H Pulse Rate [ Apical] Pulse Rate [ From Monitor] Respiratory 23 28 H Rate Respiratory Rate [ Generalized] Blood Pressure 113/87 125/77 O2 Sat by Pulse 97 100 Oximetry 08/20/17 08/20/17 08/20/17 00:15 00:30 00:45 Temperature Pulse Rate 111 H 109 H 110 H Pulse Rate [ Apical] Pulse Rate [ From Monitor] Respiratory 26 H 25 H 25 H Rate Respiratory Rate [ Generalized] Blood Pressure 133/75 133/75 108/77 O2 Sat by Pulse 99 100 99 Oximetry 08/20/17 08/20/17 08/20/17 00:48 01:00 01:15 Temperature Pulse Rate 111 H 110 H Pulse Rate [ Apical] Pulse Rate [ From Monitor] Respiratory 23 23 24 Rate Respiratory Rate [ Generalized] Blood Pressure 133/75 114/56 O2 Sat by Pulse 100 99 Oximetry 08/20/17 08/20/17 08/20/17 01:18 01:30 01:46 Temperature Pulse Rate 110 H 109 H Pulse Rate [ Apical] Pulse Rate [ From Monitor] Respiratory 24 22 24 Rate Respiratory Rate [ Generalized] Blood Pressure 104/71 96/64 O2 Sat by Pulse 99 99 Oximetry 08/20/17 08/20/17 08/20/17 02:00 02:15 02:30 Temperature Pulse Rate 108 H 109 H 110 H Pulse Rate [ Apical] Pulse Rate [ From Monitor] Respiratory 21 27 H 30 H Rate Respiratory Rate [ Generalized] Blood Pressure 96/64 122/68 122/78 O2 Sat by Pulse 100 100 99 Oximetry 08/20/17 08/20/17 08/20/17 02:45 03:00 03:16 Temperature Pulse Rate 108 H 106 H 106 H Pulse Rate [ Apical] Pulse Rate [ From Monitor] Respiratory 28 H 23 22 Rate Respiratory Rate [ Generalized] Blood Pressure 125/88 125/88 131/87 O2 Sat by Pulse 100 100 Oximetry 08/20/17 08/20/17 08/20/17 03:30 03:36 03:44 Temperature 99.6 F Pulse Rate 107 H 108 H Pulse Rate [ Apical] Pulse Rate [ From Monitor] Respiratory 22 Rate Respiratory Rate [ Generalized] Blood Pressure 132/92 132/92 O2 Sat by Pulse 100 100 Oximetry 08/20/17 08/20/17 08/20/17 03:46 04:00 04:15 Temperature Pulse Rate 109 H 105 H 105 H Pulse Rate [ Apical] Pulse Rate [ From Monitor] Respiratory 17 21 19 Rate Respiratory Rate [ Generalized] Blood Pressure 166/90 131/87 138/84 O2 Sat by Pulse 100 100 100 Oximetry 08/20/17 08/20/17 08/20/17 04:30 04:45 05:00 Temperature Pulse Rate 103 H 105 H 104 H Pulse Rate [ Apical] Pulse Rate [ From Monitor] Respiratory 24 20 19 Rate Respiratory Rate [ Generalized] Blood Pressure 151/93 152/82 143/90 O2 Sat by Pulse 100 99 99 Oximetry 08/20/17 08/20/17 08/20/17 05:15 05:30 05:45 Temperature Pulse Rate 104 H 104 H 102 H Pulse Rate [ Apical] Pulse Rate [ From Monitor] Respiratory 21 22 21 Rate Respiratory Rate [ Generalized] Blood Pressure 151/88 143/90 156/92 O2 Sat by Pulse 99 100 Oximetry 08/20/17 08/20/17 08/20/17 06:00 06:15 06:30 Temperature Pulse Rate 103 H 103 H 102 H Pulse Rate [ Apical] Pulse Rate [ From Monitor] Respiratory 20 18 18 Rate Respiratory Rate [ Generalized] Blood Pressure 139/94 131/85 131/85 O2 Sat by Pulse 99 99 100 Oximetry 08/20/17 08/20/17 08/20/17 06:45 07:00 07:15 Temperature Pulse Rate 99 H 100 H 101 H Pulse Rate [ 100 H Apical] Pulse Rate [ 100 H From Monitor] Respiratory 22 21 21 Rate Respiratory Rate [ Generalized] Blood Pressure 127/89 113/86 126/74 O2 Sat by Pulse 99 100 Oximetry 08/20/17 08/20/17 08/20/17 07:30 07:45 08:00 Temperature 97.4 F L Pulse Rate 102 H 100 H 101 H Pulse Rate [ Apical] Pulse Rate [ From Monitor] Respiratory 21 22 22 Rate Respiratory Rate [ Generalized] Blood Pressure 136/67 122/76 121/87 O2 Sat by Pulse 100 100 Oximetry 08/20/17 08:15 Temperature Pulse Rate 101 H Pulse Rate [ Apical] Pulse Rate [ From Monitor] Respiratory 21 Rate Respiratory Rate [ Generalized] Blood Pressure 117/91 O2 Sat by Pulse 95 Oximetry Constitutional: alert, lethargic, appears uncomfortable, other (orally intubated , critically ill on vent. Not sedated) Eyes: non-icteric ENT: oropharynx moist Neck: supple, no lymphadenopathy, no JVD Effort: mildly labored Ascultation: Bilateral: diminished breath sounds, rhonchi (mild) Cardiovascular: regular rate and rhythm Gastrointestinal: absent bowel sounds, tender, other (abdominal incision with dressing noted) Extremities: no cyanosis, no edema, pink and warm Neurologic: other (sedated) CBC and BMP: 08/20/17 03:20 08/20/17 03:20 ABG, PT/INR, D-dimer: ABG POC ABG pH 7.499 (7.35-7.45) H 08/20/17 04:00 POC ABG pCO2 29.1 (35-45) L 08/20/17 04:00 POC ABG pO2 100 (80-105) 08/20/17 04:00 POC ABG HCO3 22.6 08/20/17 04:00 POC ABG Total CO2 23 08/20/17 04:00 POC ABG O2 Sat 98 08/20/17 04:00 PT/INR, D-dimer PT 16.0 Sec. (12.2-14.9) H 08/17/17 11:20 INR 1.29 (0.87-1.13) H 08/17/17 11:20 Abnormal lab findings: Abnormal Labs 08/08/17 08/08/17 08/09/17 21:23 21:31 11:19 WBC 15.7 H RBC 2.93 L Hgb 8.7 L Hct 26.8 L MCV RDW 19.2 H Plt Count Lymph % (Auto) [place] % (Auto) [place] # Seg Neutrophils % Seg Neuts % (Manual) Lymphocytes % (Manual) Monocytes % (Manual) Nucleated RBC % Seg Neutrophils # Seg Neutrophils # Man Lymphocytes # (Manual) Monocytes # (Manual) Eosinophils # (Manual) Basophils # (Manual) PT INR POC ABG pH 7.490 H POC ABG pCO2 POC ABG pO2 122 H Sodium Potassium Chloride Carbon Dioxide BUN Creatinine Glucose POC Glucose Calcium Phosphorus Magnesium AST Alkaline Phosphatase Troponin T 0.133 H* C-Reactive Protein Total Protein Albumin HDL Cholesterol 26 L 08/09/17 08/10/17 08/10/17 13:25 04:45 04:45 WBC 15.5 H RBC 2.97 L Hgb 8.9 L Hct 27.0 L MCV RDW 19.2 H Plt Count Lymph % (Auto) [place] % (Auto) [place] # Seg Neutrophils % Seg Neuts % (Manual) 73.0 H Lymphocytes % (Manual) 7.0 L Monocytes % (Manual) 14.0 H Nucleated RBC % Seg Neutrophils # Seg Neutrophils # Man 11.3 H Lymphocytes # (Manual) 1.1 L Monocytes # (Manual) 2.2 H Eosinophils # (Manual) Basophils # (Manual) 0.2 H PT INR POC ABG pH POC ABG pCO2 POC ABG pO2 Sodium Potassium 3.3 L Chloride 97.3 L Carbon Dioxide 21 L BUN 23 H Creatinine 6.5 H Glucose POC Glucose Calcium 7.3 L Phosphorus Magnesium AST Alkaline Phosphatase 138 H Troponin T 0.132 H* C-Reactive Protein Total Protein 4.8 L Albumin 1.4 L HDL Cholesterol 08/11/17 08/11/17 08/12/17 04:00 04:00 05:50 WBC 19.3 H RBC 3.10 L Hgb 9.5 L Hct 28.2 L MCV RDW 19.2 H Plt Count 463 H Lymph % (Auto) 7.5 L [place] % (Auto) 14.6 H [place] # 2.8 H Seg Neutrophils % 77.0 H Seg Neuts % (Manual) Lymphocytes % (Manual) Monocytes % (Manual) Nucleated RBC % Seg Neutrophils # 14.8 H Seg Neutrophils # Man Lymphocytes # (Manual) Monocytes # (Manual) Eosinophils # (Manual) Basophils # (Manual) PT INR POC ABG pH POC ABG pCO2 POC ABG pO2 Sodium 136 L 136 L Potassium 3.3 L Chloride 96.3 L 96.6 L Carbon Dioxide BUN 26 H 26 H Creatinine 6.4 H 6.2 H Glucose 135 H 133 H POC Glucose Calcium 8.2 L Phosphorus Magnesium 1.30 L AST Alkaline Phosphatase 139 H Troponin T C-Reactive Protein Total Protein 5.5 L Albumin 1.7 L HDL Cholesterol 08/12/17 08/12/17 08/12/17 05:50 05:50 05:50 WBC 20.1 H RBC 3.06 L Hgb 9.3 L Hct 27.9 L MCV RDW 18.4 H Plt Count 471 H Lymph % (Auto) [place] % (Auto) [place] # Seg Neutrophils % Seg Neuts % (Manual) 85.0 H Lymphocytes % (Manual) 8.0 L Monocytes % (Manual) Nucleated RBC % Seg Neutrophils # Seg Neutrophils # Man 17.1 H Lymphocytes # (Manual) Monocytes # (Manual) 1.0 H Eosinophils # (Manual) Basophils # (Manual) PT 15.2 H INR 1.14 H POC ABG pH POC ABG pCO2 POC ABG pO2 Sodium Potassium Chloride Carbon Dioxide BUN Creatinine Glucose POC Glucose Calcium Phosphorus Magnesium AST Alkaline Phosphatase Troponin T C-Reactive Protein 28.90 H Total Protein Albumin HDL Cholesterol 08/12/17 08/13/17 08/13/17 16:23 06:14 06:14 WBC 21.8 H RBC 3.11 L Hgb 9.4 L Hct 28.2 L MCV RDW 18.2 H Plt Count 492 H Lymph % (Auto) [place] % (Auto) [place] # Seg Neutrophils % Seg Neuts % (Manual) 73.0 H Lymphocytes % (Manual) 2.0 L Monocytes % (Manual) 15 H Nucleated RBC % Seg Neutrophils # Seg Neutrophils # Man 15.9 H Lymphocytes # (Manual) 0.4 L Monocytes # (Manual) 2.4 H Eosinophils # (Manual) Basophils # (Manual) PT INR POC ABG pH POC ABG pCO2 POC ABG pO2 Sodium Potassium Chloride 96.2 L Carbon Dioxide BUN 28 H Creatinine 5.6 H Glucose 114 H POC Glucose Calcium Phosphorus Magnesium AST Alkaline Phosphatase Troponin T C-Reactive Protein 26.10 H Total Protein Albumin HDL Cholesterol 08/13/17 08/14/17 08/14/17 16:39 04:00 04:00 WBC 22.1 H RBC 3.25 L Hgb 9.9 L Hct 29.5 L MCV RDW 17.9 H Plt Count 525 H Lymph % (Auto) [place] % (Auto) [place] # Seg Neutrophils % Seg Neuts % (Manual) 74.0 H Lymphocytes % (Manual) 8.0 L Monocytes % (Manual) 12.0 H Nucleated RBC % Seg Neutrophils # Seg Neutrophils # Man 16.4 H Lymphocytes # (Manual) Monocytes # (Manual) 2.7 H Eosinophils # (Manual) Basophils # (Manual) PT INR POC ABG pH POC ABG pCO2 POC ABG pO2 Sodium 134 L Potassium 3.3 L Chloride 93.3 L Carbon Dioxide BUN 27 H Creatinine 6.0 H Glucose 152 H POC Glucose 151 H Calcium Phosphorus Magnesium AST Alkaline Phosphatase Troponin T C-Reactive Protein Total Protein Albumin HDL Cholesterol 08/15/17 08/16/17 08/16/17 09:10 09:50 09:50 WBC 31.1 H RBC 3.21 L Hgb 9.6 L Hct 29.3 L MCV RDW 18.1 H Plt Count 642 H Lymph % (Auto) [place] % (Auto) [place] # Seg Neutrophils % Seg Neuts % (Manual) 74.0 H Lymphocytes % (Manual) 4.0 L Monocytes % (Manual) 9.0 H Nucleated RBC % Seg Neutrophils # Seg Neutrophils # Man 23.0 H Lymphocytes # (Manual) Monocytes # (Manual) 2.8 H Eosinophils # (Manual) Basophils # (Manual) PT INR POC ABG pH POC ABG pCO2 POC ABG pO2 Sodium 136 L 136 L Potassium 3.5 L Chloride 97.6 L 94.9 L Carbon Dioxide BUN 27 H 28 H Creatinine 5.6 H 5.5 H Glucose 117 H 103 H POC Glucose Calcium Phosphorus Magnesium AST Alkaline Phosphatase 137 H Troponin T C-Reactive Protein Total Protein 5.4 L Albumin 1.5 L HDL Cholesterol 08/16/17 08/17/17 08/17/17 09:50 05:00 06:26 WBC RBC Hgb Hct MCV RDW Plt Count Lymph % (Auto) [place] % (Auto) [place] # Seg Neutrophils % Seg Neuts % (Manual) Lymphocytes % (Manual) Monocytes % (Manual) Nucleated RBC % Seg Neutrophils # Seg Neutrophils # Man Lymphocytes # (Manual) Monocytes # (Manual) Eosinophils # (Manual) Basophils # (Manual) PT INR POC ABG pH POC ABG pCO2 POC ABG pO2 Sodium 134 L Potassium 3.0 L Chloride 97.8 L Carbon Dioxide BUN 30 H Creatinine 5.3 H Glucose 147 H POC Glucose 165 H Calcium 7.5 L Phosphorus Magnesium AST Alkaline Phosphatase Troponin T C-Reactive Protein 32.30 H Total Protein Albumin HDL Cholesterol 08/17/17 08/17/17 08/17/17 10:56 11:20 11:20 WBC 39.1 H RBC 3.10 L Hgb 9.2 L Hct 28.6 L MCV RDW 18.3 H Plt Count 580 H Lymph % (Auto) [place] % (Auto) [place] # Seg Neutrophils % Seg Neuts % (Manual) 89.5 H Lymphocytes % (Manual) 3.5 L Monocytes % (Manual) Nucleated RBC % Seg Neutrophils # Seg Neutrophils # Man 35.0 H Lymphocytes # (Manual) Monocytes # (Manual) 2.5 H Eosinophils # (Manual) Basophils # (Manual) 0.2 H PT 16.0 H INR 1.29 H POC ABG pH 7.464 H POC ABG pCO2 34.1 L POC ABG pO2 75 L Sodium Potassium Chloride Carbon Dioxide BUN Creatinine Glucose POC Glucose Calcium Phosphorus Magnesium AST Alkaline Phosphatase Troponin T C-Reactive Protein Total Protein Albumin HDL Cholesterol 08/17/17 08/17/17 08/17/17 16:57 20:20 20:54 WBC 34.4 H RBC 2.81 L Hgb 8.4 L Hct 26.0 L MCV RDW 17.8 H Plt Count 455 H Lymph % (Auto) [place] % (Auto) [place] # Seg Neutrophils % Seg Neuts % (Manual) Lymphocytes % (Manual) 3.5 L Monocytes % (Manual) Nucleated RBC % 5.0 H Seg Neutrophils # Seg Neutrophils # Man 16.5 H Lymphocytes # (Manual) Monocytes # (Manual) 1.0 H Eosinophils # (Manual) Basophils # (Manual) PT INR POC ABG pH 7.557 H POC ABG pCO2 23.1 L POC ABG pO2 187 H Sodium 135 L Potassium 2.9 L* Chloride Carbon Dioxide 20 L BUN 32 H Creatinine 5.4 H Glucose 129 H POC Glucose Calcium 7.5 L Phosphorus Magnesium 1.50 L AST 85 H Alkaline Phosphatase Troponin T C-Reactive Protein Total Protein 4.0 L D Albumin 1.6 L HDL Cholesterol 08/17/17 08/18/17 08/18/17 23:47 04:26 05:51 WBC RBC Hgb Hct MCV RDW Plt Count Lymph % (Auto) [place] % (Auto) [place] # Seg Neutrophils % Seg Neuts % (Manual) Lymphocytes % (Manual) Monocytes % (Manual) Nucleated RBC % Seg Neutrophils # Seg Neutrophils # Man Lymphocytes # (Manual) Monocytes # (Manual) Eosinophils # (Manual) Basophils # (Manual) PT INR POC ABG pH POC ABG pCO2 29.0 L POC ABG pO2 148 H Sodium Potassium Chloride Carbon Dioxide BUN Creatinine Glucose POC Glucose 188 H 202 H Calcium Phosphorus Magnesium AST Alkaline Phosphatase Troponin T C-Reactive Protein Total Protein Albumin HDL Cholesterol 08/18/17 08/18/17 08/18/17 11:44 17:07 23:45 WBC RBC Hgb Hct MCV RDW Plt Count Lymph % (Auto) [place] % (Auto) [place] # Seg Neutrophils % Seg Neuts % (Manual) Lymphocytes % (Manual) Monocytes % (Manual) Nucleated RBC % Seg Neutrophils # Seg Neutrophils # Man Lymphocytes # (Manual) Monocytes # (Manual) Eosinophils # (Manual) Basophils # (Manual) PT INR POC ABG pH POC ABG pCO2 POC ABG pO2 Sodium Potassium Chloride Carbon Dioxide BUN Creatinine Glucose POC Glucose 195 H 182 H 163 H Calcium Phosphorus Magnesium AST Alkaline Phosphatase Troponin T C-Reactive Protein Total Protein Albumin HDL Cholesterol 08/18/17 08/18/17 08/19/17 Unknown Unknown 04:18 WBC 39.0 H RBC 2.84 L Hgb 8.4 L Hct 26.5 L MCV RDW 18.0 H Plt Count 476 H Lymph % (Auto) [place] % (Auto) [place] # Seg Neutrophils % Seg Neuts % (Manual) Lymphocytes % (Manual) 7.0 L Monocytes % (Manual) 10.0 H Nucleated RBC % 3.0 H Seg Neutrophils # Seg Neutrophils # Man 15.6 H Lymphocytes # (Manual) Monocytes # (Manual) 3.9 H Eosinophils # (Manual) Basophils # (Manual) PT INR POC ABG pH 7.463 H POC ABG pCO2 29.7 L POC ABG pO2 134 H Sodium Potassium Chloride Carbon Dioxide 19 L BUN 34 H Creatinine 5.6 H Glucose 201 H POC Glucose Calcium 7.8 L Phosphorus 1.90 L D Magnesium 1.60 L AST Alkaline Phosphatase Troponin T C-Reactive Protein Total Protein Albumin HDL Cholesterol 08/19/17 08/19/17 08/19/17 05:00 05:00 05:19 WBC 40.0 H RBC 2.46 L Hgb 7.3 L Hct 22.6 L MCV RDW 18.1 H Plt Count Lymph % (Auto) [place] % (Auto) [place] # Seg Neutrophils % Seg Neuts % (Manual) Lymphocytes % (Manual) 8.0 L Monocytes % (Manual) Nucleated RBC % 2.0 H Seg Neutrophils # Seg Neutrophils # Man 16.4 H Lymphocytes # (Manual) Monocytes # (Manual) 1.2 H Eosinophils # (Manual) 1.2 H Basophils # (Manual) PT INR POC ABG pH POC ABG pCO2 POC ABG pO2 Sodium Potassium 5.1 H D Chloride Carbon Dioxide 20 L BUN 40 H Creatinine 5.3 H Glucose 128 H POC Glucose 142 H Calcium 7.8 L Phosphorus 1.90 L Magnesium AST Alkaline Phosphatase Troponin T C-Reactive Protein Total Protein Albumin HDL Cholesterol 08/19/17 08/19/17 08/19/17 07:37 09:52 18:12 WBC 45.0 H* RBC 2.50 L Hgb 7.5 L Hct 24.5 L MCV 98 H RDW 18.4 H Plt Count Lymph % (Auto) [place] % (Auto) [place] # Seg Neutrophils % Seg Neuts % (Manual) 81.5 H Lymphocytes % (Manual) 4.0 L Monocytes % (Manual) Nucleated RBC % 1.0 H Seg Neutrophils # Seg Neutrophils # Man 36.7 H Lymphocytes # (Manual) Monocytes # (Manual) Eosinophils # (Manual) Basophils # (Manual) PT INR POC ABG pH POC ABG pCO2 POC ABG pO2 Sodium Potassium Chloride Carbon Dioxide BUN Creatinine Glucose POC Glucose 137 H Calcium Phosphorus Magnesium AST Alkaline Phosphatase Troponin T C-Reactive Protein 34.20 H Total Protein Albumin HDL Cholesterol 08/20/17 08/20/17 08/20/17 00:35 03:20 03:20 WBC 48.0 H* RBC 2.55 L Hgb 7.6 L Hct 23.4 L MCV RDW 18.4 H Plt Count Lymph % (Auto) [place] % (Auto) [place] # Seg Neutrophils % Seg Neuts % (Manual) 90.0 H Lymphocytes % (Manual) 3.0 L Monocytes % (Manual) Nucleated RBC % Seg Neutrophils # Seg Neutrophils # Man 43.2 H Lymphocytes # (Manual) Monocytes # (Manual) 1.4 H Eosinophils # (Manual) 0.5 H Basophils # (Manual) PT INR POC ABG pH POC ABG pCO2 POC ABG pO2 Sodium 135 L Potassium Chloride Carbon Dioxide BUN 28 H Creatinine 4.0 H Glucose 140 H POC Glucose 164 H Calcium 8.0 L Phosphorus 1.70 L Magnesium 1.60 L AST Alkaline Phosphatase Troponin T C-Reactive Protein Total Protein Albumin HDL Cholesterol 08/20/17 08/20/17 04:00 05:02 WBC RBC Hgb Hct MCV RDW Plt Count Lymph % (Auto) [place] % (Auto) [place] # Seg Neutrophils % Seg Neuts % (Manual) Lymphocytes % (Manual) Monocytes % (Manual) Nucleated RBC % Seg Neutrophils # Seg Neutrophils # Man Lymphocytes # (Manual) Monocytes # (Manual) Eosinophils # (Manual) Basophils # (Manual) PT INR POC ABG pH 7.499 H POC ABG pCO2 29.1 L POC ABG pO2 Sodium Potassium Chloride Carbon Dioxide BUN Creatinine Glucose POC Glucose 158 H Calcium Phosphorus Magnesium AST Alkaline Phosphatase Troponin T C-Reactive Protein Total Protein Albumin HDL Cholesterol
[2017-08-20] MEDS: PROTONIX IV SCH ×2 (09:31→21:35)
--- NOTE | 2017-08-20 09:33 | Progress Note ---
Assessment and Plan Assessment and plan: --Septic shock. Secondary to peritonitis. Complex catheter related UTI Continue vancomycin , meropenem and Diflucan. ID following. ID following --Acute hypoxic respiratory failure. Patient remains on mechanical ventilation postoperatively. wean as tolerated and extubate , pulmonary following --Urinary retention/ ? Infected stents. Urology evaluated the patient --Bowel obstruction / status post exploratory lap with removal of PD catheter as a cause of obstruction. --Peritonitis /small bowel obstruction , s/p G-tube placement, abdominal washout , removal of PD catheter. surgery following. --End-stage renal disease , PD catheter removed, Vas-Cath placement, hemodialysis per schedule Nephrology following --Ulcerative esophagitis/small gastric ulcer on EGD. Continue current medications ,Biopsy report pending --Sepsis secondary to peritonitis /catheter related complex UTI present on admission .continue antibiotics --Severe Protein calorie malnutrition. Continue TPN and supportive care --Leukocytosis. Secondary to peritonitis, complex complicated UTI, ID and hematology following --History of cervical surgery and postoperative wheelchair bound since then Supportive care --DVT prophylaxis; SCDs --Disposition Poor prognosis , family aware. Plan of care discussed with the patient's daughter at the bedside as well as the nurse History Interval history: Patient seen and examined ICU this morning Remains intubated on ventilatory support Currently on Levophed, low-grade fever Not in acute distress Daughter is at the bedside Hospitalist Physical - Constitutional Vitals: Temp Pulse Resp BP Pulse Ox 97.4 F L 100 H 22 102/73 100 08/20/17 08:00 08/20/17 09:15 08/20/17 09:15 08/20/17 09:15 08/20/17 09:15 General appearance: Present: no acute distress, well-nourished, other ( intubated on ventilatory support) - EENT Eyes: Present: PERRL, EOM intact ENT: other (ET tube in place) - Neck Neck: Present: supple - Respiratory Respiratory effort: normal Respiratory: bilateral: diminished, rhonchi, negative: rales, wheezing - Cardiovascular Rhythm: regular Heart Sounds: Present: S1 & S2 - Extremities Extremities: no ischemia, No edema Peripheral Pulses: within normal limits - Abdominal General gastrointestinal: soft, non-tender, non-distended, absent bowel sounds, other (drainage in place) - Integumentary Integumentary: Present: clear, warm - Psychiatric Psychiatric: other (intubated and sedated) - Neurologic Neurologic: other (intubated and sedated) Results - Labs CBC & Chem 7: 08/20/17 03:20 08/20/17 03:20 Labs: Laboratory Last Values WBC 48.0 K/mm3 (4.5-11.0) H* 08/20/17 03:20 RBC 2.55 M/mm3 (3.65-5.03) L 08/20/17 03:20 Hgb 7.6 gm/dl (10.1-14.3) L 08/20/17 03:20 Hct 23.4 % (30.3-42.9) L 08/20/17 03:20 MCV 92 fl (79-97) 08/20/17 03:20 MCH 30 pg (28-32) 08/20/17 03:20 MCHC 32 % (30-34) 08/20/17 03:20 RDW 18.4 % (13.2-15.2) H 08/20/17 03:20 Plt Count 336 K/mm3 (140-440) 08/20/17 03:20 Lymph % (Auto) Hardware Installer 08/19/17 07:37 Price % (Auto) Hardware Installer 08/19/17 07:37 Eos % (Auto) Hardware Installer 08/19/17 07:37 Baso % (Auto) Hardware Installer 08/19/17 07:37 Lymph # Hardware Installer 08/19/17 07:37 Price # Hardware Installer 08/19/17 07:37 Eos # Hardware Installer 08/19/17 07:37 Baso # Hardware Installer 08/19/17 07:37 Add Manual Diff Complete 08/20/17 03:20 Total Counted 100 08/20/17 03:20 Seg Neutrophils % Hardware Installer 08/19/17 07:37 Seg Neuts % (Manual) 90.0 % (40.0-70.0) H 08/20/17 03:20 Band Neutrophils % 3.0 % 08/20/17 03:20 Lymphocytes % (Manual) 3.0 % (13.4-35.0) L 08/20/17 03:20 Reactive Lymphs % (Man) 0 % 08/20/17 03:20 Monocytes % (Manual) 3.0 % (0.0-7.3) 08/20/17 03:20 Eosinophils % (Manual) 1.0 % (0.0-4.3) 08/20/17 03:20 Basophils % (Manual) 0 % (0.0-1.8) 08/19/17 05:00 Metamyelocytes % 0 % 08/20/17 03:20 Myelocytes % 0 % 08/20/17 03:20 Promyelocytes % 0 % 08/20/17 03:20 Blast Cells % 0 % 08/20/17 03:20 Nucleated RBC % Not Reportable 08/20/17 03:20 Seg Neutrophils # Hardware Installer 08/19/17 07:37 Seg Neutrophils # Man 43.2 K/mm3 (1.8-7.7) H 08/20/17 03:20 Band Neutrophils # 1.4 K/mm3 08/20/17 03:20 Lymphocytes # (Manual) 1.4 K/mm3 (1.2-5.4) 08/20/17 03:20 Abs React Lymphs (Man) 0.0 K/mm3 08/20/17 03:20 Monocytes # (Manual) 1.4 K/mm3 (0.0-0.8) H 08/20/17 03:20 Eosinophils # (Manual) 0.5 K/mm3 (0.0-0.4) H 08/20/17 03:20 Basophils # (Manual) 0.0 K/mm3 (0.0-0.1) 08/20/17 03:20 Metamyelocytes # 0.0 K/mm3 08/20/17 03:20 Myelocytes # 0.0 K/mm3 08/20/17 03:20 Promyelocytes # 0.0 K/mm3 08/20/17 03:20 Blast Cells # 0.0 K/mm3 08/20/17 03:20 WBC Morphology Not Reportable 08/20/17 03:20 Hypersegmented Neuts Not Reportable 08/20/17 03:20 Hyposegmented Neuts Not Reportable 08/20/17 03:20 Hypogranular Neuts Not Reportable 08/20/17 03:20 Smudge Cells Not Reportable 08/20/17 03:20 Toxic Granulation Not Reportable 08/20/17 03:20 Toxic Vacuolation Not Reportable 08/20/17 03:20 Dohle Bodies Not Reportable 08/20/17 03:20 Pelger-Huet Anomaly Not Reportable 08/20/17 03:20 Ariel Rods Not Reportable 08/20/17 03:20 Platelet Estimate Consistent w auto 08/20/17 03:20 Clumped Platelets Few 08/20/17 03:20 Plt Clumps, EDTA Not Reportable 08/20/17 03:20 Large Platelets Not Reportable 08/20/17 03:20 Giant Platelets Not Reportable 08/20/17 03:20 Platelet Satelliting Not Reportable 08/20/17 03:20 Plt Morphology Comment Not Reportable 08/20/17 03:20 RBC Morphology Not Reportable 08/20/17 03:20 Dimorphic RBCs Not Reportable 08/20/17 03:20 Polychromasia Few 08/20/17 03:20 Hypochromasia Not Reportable 08/20/17 03:20 Poikilocytosis Not Reportable 08/20/17 03:20 Anisocytosis Not Reportable 08/20/17 03:20 Microcytosis Not Reportable 08/20/17 03:20 Macrocytosis Not Reportable 08/20/17 03:20 Spherocytes Not Reportable 08/20/17 03:20 Pappenheimer Bodies Not Reportable 08/20/17 03:20 Sickle Cells Not Reportable 08/20/17 03:20 Target Cells 1+ 08/20/17 03:20 Tear Drop Cells Not Reportable 08/20/17 03:20 Ovalocytes Not Reportable 08/20/17 03:20 Stomatocytes Few 08/20/17 03:20 Helmet Cells Not Reportable 08/20/17 03:20 Vera-Paullina Bodies Not Reportable 08/20/17 03:20 Energy Rings Not Reportable 08/20/17 03:20 Yusuf Cells Not Reportable 08/20/17 03:20 Bite Cells Not Reportable 08/20/17 03:20 Crenated Cell Not Reportable 08/20/17 03:20 Elliptocytes Not Reportable 08/20/17 03:20 Acanthocytes (Spur) Not Reportable 08/20/17 03:20 Rouleaux Not Reportable 08/20/17 03:20 Hemoglobin C Crystals Not Reportable 08/20/17 03:20 Schistocytes Not Reportable 08/20/17 03:20 Malaria parasites Not Reportable 08/20/17 03:20 Jovanni Bodies Not Reportable 08/20/17 03:20 Hem Pathologist Commnt No 08/20/17 03:20 PT 16.0 Sec. (12.2-14.9) H 08/17/17 11:20 INR 1.29 (0.87-1.13) H 08/17/17 11:20 APTT 35.5 Sec. (24.2-36.6) 08/12/17 05:50 POC ABG pH 7.499 (7.35-7.45) H 08/20/17 04:00 POC ABG pCO2 29.1 (35-45) L 08/20/17 04:00 POC ABG pO2 100 (80-105) 08/20/17 04:00 POC ABG HCO3 22.6 08/20/17 04:00 POC ABG Total CO2 23 08/20/17 04:00 POC ABG O2 Sat 98 08/20/17 04:00 POC ABG Base Excess -1 08/20/17 04:00 VBG pH 7.462 (7.320-7.420) H 08/08/17 14:52 FiO2 30 % 08/20/17 04:00 Sodium 135 mmol/L (137-145) L 08/20/17 03:20 Potassium 4.4 mmol/L (3.6-5.0) 08/20/17 03:20 Chloride 100.8 mmol/L (98-107) 08/20/17 03:20 Carbon Dioxide 22 mmol/L (22-30) 08/20/17 03:20 Anion Gap 17 mmol/L 08/20/17 03:20 BUN 28 mg/dL (7-17) H 08/20/17 03:20 Creatinine 4.0 mg/dL (0.7-1.2) H 08/20/17 03:20 Estimated GFR 14 ml/min 08/20/17 03:20 BUN/Creatinine Ratio 7.00 % 08/20/17 03:20 Glucose 140 mg/dL (65-100) H 08/20/17 03:20 POC Glucose 158 (70-105) H 08/20/17 05:02 Lactic Acid 1.60 mmol/L (0.7-2.0) 08/17/17 11:20 Calcium 8.0 mg/dL (8.4-10.2) L 08/20/17 03:20 Phosphorus 1.70 mg/dL (2.5-4.5) L 08/20/17 03:20 Magnesium 1.60 mg/dL (1.7-2.3) L 08/20/17 03:20 Total Bilirubin 0.40 mg/dL (0.1-1.2) 08/17/17 16:57 Direct Bilirubin 0.2 mg/dL (0-0.2) 08/08/17 14:11 Indirect Bilirubin 0.3 mg/dL 08/08/17 14:11 AST 85 units/L (5-40) H 08/17/17 16:57 ALT 17 units/L (7-56) 08/17/17 16:57 Alkaline Phosphatase 96 units/L (35-129) 08/17/17 16:57 Ammonia 25.0 umol/L (25-60) 08/08/17 14:52 Troponin T 0.132 ng/mL (0.00-0.029) H* 08/09/17 13:25 C-Reactive Protein 34.20 mg/dL (0.00-1.30) H 08/19/17 09:52 NT-Pro-B Natriuret Pep 6156 pg/mL (0-900) H 08/08/17 14:11 Total Protein 4.0 g/dL (6.3-8.2) L D 08/17/17 16:57 Albumin 1.6 g/dL (3.9-5) L 08/17/17 16:57 Albumin/Globulin Ratio 0.7 % 08/17/17 16:57 Triglycerides 62 mg/dL (2-149) 08/08/17 21:23 Cholesterol 91 mg/dL (50-199) 08/08/17 21:23 LDL Cholesterol Direct 53 mg/dL (50-130) 08/08/17 21:23 HDL Cholesterol 26 mg/dL (40-59) L 08/08/17 21:23 Cholesterol/HDL Ratio 3.50 % 08/08/17 21:23 Amylase 45 units/L (27-131) 08/16/17 09:50 Lipase 34 units/L (13-60) 08/16/17 09:50 TSH 6.580 mlU/mL (0.270-4.200) H 08/08/17 14:22 Free T4 1.46 ng/dL (0.76-1.46) 08/08/17 14:22 Total Cortisol 30.1 mcg/dL () 08/13/17 06:14 Urine Color Yellow (Yellow) 08/08/17 20:15 Urine Turbidity Turbid (Clear) 08/08/17 20:15 Urine pH 8.0 (5.0-7.0) H 08/08/17 20:15 Ur Specific Nora 1.015 (1.003-1.030) 08/08/17 20:15 Urine Protein 100 mg/dl mg/dL (Negative) 08/08/17 20:15 Urine Glucose (UA) Neg mg/dL (Negative) 08/08/17 20:15 Urine Ketones Neg mg/dL (Negative) 08/08/17 20:15 Urine Blood Mod (Negative) 08/08/17 20:15 Urine Nitrite Neg (Negative) 08/08/17 20:15 Urine Bilirubin Neg (Negative) 08/08/17 20:15 Urine Urobilinogen < 2.0 mg/dL (<2.0) 08/08/17 20:15 Ur Leukocyte Esterase Lg (Negative) 08/08/17 20:15 Urine WBC (Auto) 24.0 /HPF (0.0-6.0) H 08/08/17 20:15 Urine RBC (Auto) 3.0 /HPF (0.0-6.0) 08/08/17 20:15 U Epithel Cells (Auto) 3.0 /HPF (0-13.0) 08/08/17 20:15 Urine Bacteria (Auto) 4+ /HPF (Negative) 08/08/17 20:15 Urine Mucus 3+ /HPF 08/08/17 20:15 Fluid Type Peritoneal 08/08/17 18:18 Fluid Color Straw 08/08/17 18:18 Fluid Appearance Clear 08/08/17 18:18 Fluid pH 7.74 08/08/17 18:18 Fluid WBC 4 /mm3 08/08/17 18:18 Fluid RBC 1 /mm3 08/08/17 18:18 Fluid Seg Neutrophils 12 % 08/08/17 18:18 Fluid Lymphocytes 0 % 08/08/17 18:18 Fluid Reactive Lymphs 0 % 08/08/17 18:18 Fluid Monocytes 1 % 08/08/17 18:18 Fluid Eosinophils 0 % 08/08/17 18:18 Fluid Basophils 0 % 08/08/17 18:18 Fluid Glucose 315 mg/dL (40-70) H 08/08/17 18:18 Random Vancomycin 21 ug/mL (0-40.0) 08/19/17 05:00 Blood Type O POSITIVE 08/17/17 11:20 Antibody Screen Negative 08/17/17 11:20
[2017-08-20] MEDS ORDERED: VANCOMYCIN/NS 1 GM/250 ML 1 GM/250 ML BAG IV ONE (10:00)
--- NOTE | 2017-08-20 10:28 | XRay Report ---
AP chest x-ray. History: Follow up respiratory failure. Findings: There is been resolution of the bibasilar atelectasis. The lungs are clear on today's study. The heart size is borderline. Support tubes are unchanged.
[2017-08-20] MEDS: DIFLUCAN 200 MG/100 ML BAG IV SCH (11:15)
--- NOTE | 2017-08-20 11:55 | Progress Note ---
Assessment and Plan Assessment: 1) Sepsis with septic shock: worsening leukocytosis; source bowel obstruction / suspect perforation. -CRP=28-->32-->34 -WBC=39 --> 45 --> 48K 2) Bowel obstruction / suspect perforation -S/P Exlap, G-tube placement, EGD, abdominal washout and removal of PD -OR findings - bowel obstruction due to entanglement of PD cath, abscess cavity in LUQ and ? suspect perforation of unclear location -Repeat CT - improved ascitis 3) CA-UTI: chronic ivan exchanged every 4 weeks and ureteral stents in place which are exchanged every 6 months ? urine cultures still pending should r/o MDR bacteria 4) Paraplegia 5) ESRD on PD - no evidence of peritonitis, wbc count 2. CINDER BLOCK MASON and Diphteroids on peritoneal fluid likely contaminants. 6) Recent pancreatitis 7) Penicillin allergy-has taken keflex w/o problems Plan: -recheck blood cultures, UA, Urine cx -continue meropenem day 8, fluconazole day 5 and vancomycin day 5 -f/u procalcitonin -guarded prognosis, discussed with daughter Thank you Dr Davis for your consultation, will follow up with you. Ramya Lang MD Infectious Diseases Specialist [facility] M [phone] O [phone] Subjective Date of service: 08/20/17 Principal diagnosis: /anemia, poor oral intake. Interval history: Remains critically ill, intubated on the vent, she was on vasopressin and levophed overnight. vasopressin stopped this am. Tmax 100.1 Microbiology: Blood cultures: 08/08 neg 08/12 neg 08/16 ngtd Urine cultures: 08/08 10-100K skin grace Respiratory cultures: Wound cultures: Stool cultures: Other: 08/08 peritoneal fluid + CINDER BLOCK MASON/Diphteroids Current Antimicrobials: 08/13 meropenem 08/16 fluconazole 08/16 vancomycin Previous Antimicrobials: 08/10 levaquin Objective - Exam Narrative Exam: General appearance: sedated on the vent in NAD Eyes: anicteric sclerae, moist conjunctivae; no lid-lag; PERRLA HENT: Atraumatic;+ ETT +NGT Neck: Trachea midline; supple, no thyromegaly or lymphadenopathy Lungs: coarse BS moreno CV: RRR, no murmurs Abdomen: soft, midline surgical wound with kelli a drain covered with surg dressings Extremities: + peripheral edema + leg ulcer Skin: Normal temperature, turgor and texture; no rash, ulcers or subcutaneous nodules Psych: sedated. Neuro: sedated Lines: femoral line / Right IJ Nair 08/16 - Constitutional Vitals: Vital Signs Temp Pulse Resp BP Pulse Ox 97.4 F L 100 H 31 H 102/73 100 08/20/17 08:00 08/20/17 10:00 08/20/17 10:00 08/20/17 10:00 08/20/17 10:00 Temperature -Last 24 Hours Temperature 97.4 F Temperature 99.6 F Temperature 99.8 F Temperature 100 F Temperature 100.1 F Temperature 98.9 F Temperature 98.9 F Temperature 98.2 F - Labs CBC & Chem 7: 08/20/17 03:20 08/20/17 03:20 Labs: Abnormal lab results 08/19/17 08/20/17 08/20/17 Range/Units 18:12 00:35 03:20 WBC 48.0 H* (4.5-11.0) K/mm3 RBC 2.55 L (3.65-5.03) M/mm3 Hgb 7.6 L (10.1-14.3) gm/dl Hct 23.4 L (30.3-42.9) % RDW 18.4 H (13.2-15.2) % Seg Neuts % (Manual) 90.0 H (40.0-70.0) % Lymphocytes % (Manual) 3.0 L (13.4-35.0) % Seg Neutrophils # Man 43.2 H (1.8-7.7) K/mm3 Monocytes # (Manual) 1.4 H (0.0-0.8) K/mm3 Eosinophils # (Manual) 0.5 H (0.0-0.4) K/mm3 POC ABG pH (7.35-7.45) POC ABG pCO2 (35-45) Sodium (137-145) mmol/L BUN (7-17) mg/dL Creatinine (0.7-1.2) mg/dL Glucose (65-100) mg/dL POC Glucose 137 H 164 H (70-105) Calcium (8.4-10.2) mg/dL Phosphorus (2.5-4.5) mg/dL Magnesium (1.7-2.3) mg/dL 08/20/17 08/20/17 08/20/17 Range/Units 03:20 04:00 05:02 WBC (4.5-11.0) K/mm3 RBC (3.65-5.03) M/mm3 Hgb (10.1-14.3) gm/dl Hct (30.3-42.9) % RDW (13.2-15.2) % Seg Neuts % (Manual) (40.0-70.0) % Lymphocytes % (Manual) (13.4-35.0) % Seg Neutrophils # Man (1.8-7.7) K/mm3 Monocytes # (Manual) (0.0-0.8) K/mm3 Eosinophils # (Manual) (0.0-0.4) K/mm3 POC ABG pH 7.499 H (7.35-7.45) POC ABG pCO2 29.1 L (35-45) Sodium 135 L (137-145) mmol/L BUN 28 H (7-17) mg/dL Creatinine 4.0 H (0.7-1.2) mg/dL Glucose 140 H (65-100) mg/dL POC Glucose 158 H (70-105) Calcium 8.0 L (8.4-10.2) mg/dL Phosphorus 1.70 L (2.5-4.5) mg/dL Magnesium 1.60 L (1.7-2.3) mg/dL
--- NOTE | 2017-08-20 13:36 | Progress Note ---
Assessment and Plan 62 y.o. F s/p ex-lap, lysis of adhesions, G tube placement, MERVIN drain placement: POD 3 gastric perforation: poor overall nutritional status making the defect difficult to re-seal despite intra-luminal decompression and external drainage. CT yesterday did not reveal any extravasation. Will continue to decompress via NG and G tube. MERVIN is less bilious which is an improvement. -continue PPI -merrom, diflucan and vanco -TPN for nutrition Resp: continues to require vent. cpap trail today. f/u abg. sepsis: likely due intra-abdominal process, hypotension requiring pressor support. ID following. f/u rpt cultures continue abx, and abdominal drainage. wean pressors as tolerated. renal failure: HD yesterday. will defer to renal for dialysis and fluid/ electrolyte management. Sacral wound and RLE wound: wound care following. GI proph: PPI DVT proph: heparin subq - Patient Problems (1) SBO (small bowel obstruction) Current Visit: Yes Status: Acute Subjective Date of service: 08/20/17 Narrative: Pt had HD yesterday-500cc fluid removed. Levo and vasopressin during HD for BP support. Currently pt only on levo at 30. She is not on sedation and only receiving morphine IV pushes prn. Tmax 100.3 NG minimal MERVIN: 175cc brown/serous G tube 150cc green thick bile ivan: minimal wt. Objective Vital Signs - 12hr 08/20/17 08/20/17 08/20/17 01:46 02:00 02:15 Temperature Pulse Rate 109 H 108 H 109 H Pulse Rate [ Apical] Pulse Rate [ From Monitor] Respiratory 24 21 27 H Rate Blood Pressure 96/64 96/64 122/68 O2 Sat by Pulse 99 100 100 Oximetry 08/20/17 08/20/17 08/20/17 02:30 02:45 03:00 Temperature Pulse Rate 110 H 108 H 106 H Pulse Rate [ Apical] Pulse Rate [ From Monitor] Respiratory 30 H 28 H 23 Rate Blood Pressure 122/78 125/88 125/88 O2 Sat by Pulse 99 100 Oximetry 08/20/17 08/20/17 08/20/17 03:16 03:30 03:36 Temperature 99.6 F Pulse Rate 106 H 107 H Pulse Rate [ Apical] Pulse Rate [ From Monitor] Respiratory 22 22 Rate Blood Pressure 131/87 132/92 O2 Sat by Pulse 100 100 Oximetry 08/20/17 08/20/17 08/20/17 03:44 03:46 04:00 Temperature Pulse Rate 108 H 109 H 105 H Pulse Rate [ Apical] Pulse Rate [ From Monitor] Respiratory 17 21 Rate Blood Pressure 132/92 166/90 131/87 O2 Sat by Pulse 100 100 100 Oximetry 08/20/17 08/20/17 08/20/17 04:15 04:30 04:45 Temperature Pulse Rate 105 H 103 H 105 H Pulse Rate [ Apical] Pulse Rate [ From Monitor] Respiratory 19 24 20 Rate Blood Pressure 138/84 151/93 152/82 O2 Sat by Pulse 100 100 99 Oximetry 08/20/17 08/20/17 08/20/17 05:00 05:15 05:30 Temperature Pulse Rate 104 H 104 H 104 H Pulse Rate [ Apical] Pulse Rate [ From Monitor] Respiratory 19 21 22 Rate Blood Pressure 143/90 151/88 143/90 O2 Sat by Pulse 99 99 100 Oximetry 08/20/17 08/20/17 08/20/17 05:45 06:00 06:15 Temperature Pulse Rate 102 H 103 H 103 H Pulse Rate [ Apical] Pulse Rate [ From Monitor] Respiratory 21 20 18 Rate Blood Pressure 156/92 139/94 131/85 O2 Sat by Pulse 99 99 Oximetry 08/20/17 08/20/17 08/20/17 06:30 06:45 07:00 Temperature Pulse Rate 102 H 99 H 100 H Pulse Rate [ 100 H Apical] Pulse Rate [ 100 H From Monitor] Respiratory 18 22 21 Rate Blood Pressure 131/85 127/89 113/86 O2 Sat by Pulse 100 99 100 Oximetry 08/20/17 08/20/17 08/20/17 07:15 07:30 07:45 Temperature Pulse Rate 101 H 102 H 100 H Pulse Rate [ Apical] Pulse Rate [ From Monitor] Respiratory 21 21 22 Rate Blood Pressure 126/74 136/67 122/76 O2 Sat by Pulse 100 Oximetry 08/20/17 08/20/17 08/20/17 08:00 08:15 08:30 Temperature 97.4 F L Pulse Rate 101 H 101 H 98 H Pulse Rate [ Apical] Pulse Rate [ From Monitor] Respiratory 22 21 19 Rate Blood Pressure 121/87 117/91 110/65 O2 Sat by Pulse 100 95 100 Oximetry 08/20/17 08/20/17 08/20/17 08:45 09:00 09:15 Temperature Pulse Rate 99 H 100 H 100 H Pulse Rate [ Apical] Pulse Rate [ From Monitor] Respiratory 20 21 22 Rate Blood Pressure 112/60 93/53 102/73 O2 Sat by Pulse 100 79 L 100 Oximetry 08/20/17 08/20/17 08/20/17 10:00 12:00 12:53 Temperature 98.2 F Pulse Rate 100 H 100 H Pulse Rate [ Apical] Pulse Rate [ From Monitor] Respiratory 31 H 26 H Rate Blood Pressure 102/73 99/68 O2 Sat by Pulse 100 99 Oximetry - General physical appearance obese - Respiratory normal expansion, clear to percussion - Abdomen soft, other (obese, soft, tender at incision site: dressing removed: kelli intact. no drainage. packing removed from prev PD cath site- clean, no drainage. Repacked with wet to dry dressing. MERVIN brown serous drainage. G tube- bilious thick . grimace with palpation midab) - Genitourinary other (ivan) - Integumentary no growths - Neurologic other (grimace wiht palp to abd. squeeze hand with commands. ) - Musculoskeletal other (moves bl upper extremity . R chest wells , R fem groin non tunneled HD catheter) - Psychiatric other - Labs 08/20/17 03:20 08/20/17 03:20 Diabetes panel 08/20/17 Range/Units 03:20 Sodium 135 L (137-145) mmol/L Potassium 4.4 (3.6-5.0) mmol/L Chloride 100.8 (98-107) mmol/L Carbon Dioxide 22 (22-30) mmol/L BUN 28 H (7-17) mg/dL Creatinine 4.0 H (0.7-1.2) mg/dL Glucose 140 H (65-100) mg/dL Calcium 8.0 L (8.4-10.2) mg/dL Calcium panel 08/20/17 Range/Units 03:20 Calcium 8.0 L (8.4-10.2) mg/dL Phosphorus 1.70 L (2.5-4.5) mg/dL Pituitary panel 08/20/17 Range/Units 03:20 Sodium 135 L (137-145) mmol/L Potassium 4.4 (3.6-5.0) mmol/L Chloride 100.8 (98-107) mmol/L Carbon Dioxide 22 (22-30) mmol/L BUN 28 H (7-17) mg/dL Creatinine 4.0 H (0.7-1.2) mg/dL Glucose 140 H (65-100) mg/dL Calcium 8.0 L (8.4-10.2) mg/dL Adrenal panel 08/20/17 Range/Units 03:20 Sodium 135 L (137-145) mmol/L Potassium 4.4 (3.6-5.0) mmol/L Chloride 100.8 (98-107) mmol/L Carbon Dioxide 22 (22-30) mmol/L BUN 28 H (7-17) mg/dL Creatinine 4.0 H (0.7-1.2) mg/dL Glucose 140 H (65-100) mg/dL Calcium 8.0 L (8.4-10.2) mg/dL
[2017-08-20 13:44] LABS: ISTAT Base Excess 1; ISTAT HCO3 23.7; ISTAT PCO2 27.9 (35-45); ISTAT PH 7.537 (7.35-7.45); ISTAT PO2 79 (80-105); ISTAT SO2 97; ISTAT TCO2 25
[2017-08-20] MEDS: MERREM 1,000 MG in NACL 0.9% 100 ML IV SCH (13:56)
[2017-08-20] MEDS ORDERED: TPN ADULT 1,800 ML IV SCH (20:00)
--- NOTE | 2017-08-20 23:00 | Progress Note ---
Assessment and Plan - Patient Problems (1) Leukocytosis Current Visit: Yes Status: Acute Qualifiers: Leukocytosis type: L Plan to address problem: See notes above. make sure that PD access is clean also. see notes. Probably infection from the infected PD catheter. (2) Anemia Current Visit: Yes Status: Acute Qualifiers: Anemia type: A Iron deficiency anemia type: I Vitamin B12 deficiency anemia type: V Folate deficiency anemia type: F Bone marrow failure anemia type: B Hemolytic anemia type: H Other causes of anemia: O Chronic kidney disease stage: C Plan to address problem: see notes , monitor labs,. see notes above. Subjective Date of service: 08/20/17 Principal diagnosis: /anemia, poor oral intake. Interval history: Patient seen today/examined, labs reviewed, case d/w she, and family.complaints of abdominal pain. Patient resting in bed in the ICU, post vascular procedure. labs reviewed, Reactive thrombocytosis, anemia of CD, leukocytosis from infection vs inflamatory process. Patient seen/examined, in bed in the ICU, on the vent post surgery.Labs reviewed , notes reviewed. will continue to monitor labs/patient with you. Replacement transfusion, if /when indicated. patient seen/examined, SBP75, on pressors., lethargic, on the vent, labs reviewed, wbc 39,000 Patient seen/examined, case reviewed, d/w her sister at the bed side. Patient seen/examined, labs reviewed, notes reviewed. severe septic shock from infected PD catheter The high wbc is all infection related. H?H low, and may get replacement transfusion with the next HD. Prognosis remain quite poor. Objective - Constitutional Vitals: Vital Signs - 12hr 08/20/17 08/20/17 08/20/17 11:00 11:15 11:30 Temperature Pulse Rate 99 H 99 H 100 H Pulse Rate [ Apical] Pulse Rate [ From Monitor] Respiratory 32 H 28 H 27 H Rate Blood Pressure 112/60 106/65 123/63 O2 Sat by Pulse 99 100 Oximetry 08/20/17 08/20/17 08/20/17 11:45 12:00 12:15 Temperature 98.2 F Pulse Rate 99 H 97 H 100 H Pulse Rate [ Apical] Pulse Rate [ From Monitor] Respiratory 25 H 26 H 29 H Rate Blood Pressure 118/52 118/52 120/75 O2 Sat by Pulse 99 100 98 Oximetry 08/20/17 08/20/17 08/20/17 12:20 12:30 12:45 Temperature Pulse Rate 98 H 100 H Pulse Rate [ 99 H Apical] Pulse Rate [ 99 H From Monitor] Respiratory 28 H 28 H 26 H Rate Blood Pressure 120/75 99/68 O2 Sat by Pulse 100 99 96 Oximetry 08/20/17 08/20/17 08/20/17 12:53 13:00 13:15 Temperature Pulse Rate 100 H 100 H 98 H Pulse Rate [ Apical] Pulse Rate [ From Monitor] Respiratory 26 H 24 20 Rate Blood Pressure 99/68 105/67 96/63 O2 Sat by Pulse 99 99 100 Oximetry 08/20/17 08/20/17 08/20/17 13:30 13:45 14:00 Temperature Pulse Rate 97 H 98 H 98 H Pulse Rate [ Apical] Pulse Rate [ From Monitor] Respiratory 20 21 16 Rate Blood Pressure 100/62 100/63 107/61 O2 Sat by Pulse 100 Oximetry 08/20/17 08/20/17 08/20/17 14:15 14:30 14:45 Temperature Pulse Rate 98 H 95 H 96 H Pulse Rate [ Apical] Pulse Rate [ From Monitor] Respiratory 19 24 18 Rate Blood Pressure 102/63 102/62 105/63 O2 Sat by Pulse 99 Oximetry 08/20/17 08/20/17 08/20/17 15:00 15:15 15:30 Temperature Pulse Rate 98 H 96 H 96 H Pulse Rate [ Apical] Pulse Rate [ From Monitor] Respiratory 22 24 19 Rate Blood Pressure 105/63 106/72 98/54 O2 Sat by Pulse 100 99 100 Oximetry 08/20/17 08/20/17 08/20/17 15:45 16:00 16:15 Temperature 97.6 F Pulse Rate 96 H 98 H 96 H Pulse Rate [ Apical] Pulse Rate [ From Monitor] Respiratory 25 H 24 16 Rate Blood Pressure 103/57 105/61 93/57 O2 Sat by Pulse 100 98 100 Oximetry 08/20/17 08/20/17 08/20/17 16:20 16:30 16:45 Temperature Pulse Rate 96 H 94 H Pulse Rate [ 98 H Apical] Pulse Rate [ 98 H From Monitor] Respiratory 21 17 17 Rate Blood Pressure 95/55 95/55 O2 Sat by Pulse 100 99 100 Oximetry 08/20/17 08/20/17 08/20/17 17:00 17:15 17:30 Temperature Pulse Rate 94 H 96 H 95 H Pulse Rate [ Apical] Pulse Rate [ From Monitor] Respiratory 20 19 20 Rate Blood Pressure 95/53 87/57 92/56 O2 Sat by Pulse 100 100 Oximetry 08/20/17 08/20/17 08/20/17 17:45 17:56 18:00 Temperature Pulse Rate 96 H 100 H 97 H Pulse Rate [ Apical] Pulse Rate [ From Monitor] Respiratory 19 19 Rate Blood Pressure 83/56 83/56 77/56 O2 Sat by Pulse 98 100 100 Oximetry 08/20/17 08/20/17 08/20/17 18:15 18:30 18:45 Temperature Pulse Rate 97 H 97 H 99 H Pulse Rate [ Apical] Pulse Rate [ From Monitor] Respiratory 20 19 19 Rate Blood Pressure 97/57 96/56 105/57 O2 Sat by Pulse 99 98 100 Oximetry 08/20/17 08/20/17 08/20/17 19:00 19:15 19:30 Temperature Pulse Rate 96 H 96 H 97 H Pulse Rate [ Apical] Pulse Rate [ From Monitor] Respiratory 17 19 19 Rate Blood Pressure 93/50 103/57 106/59 O2 Sat by Pulse 99 99 99 Oximetry 08/20/17 08/20/17 08/20/17 19:39 19:45 19:49 Temperature 99.1 F Pulse Rate 100 H 96 H Pulse Rate [ Apical] Pulse Rate [ From Monitor] Respiratory 20 Rate Blood Pressure 106/59 94/60 O2 Sat by Pulse 100 Oximetry 08/20/17 08/20/17 19:59 20:00 Temperature Pulse Rate 96 H Pulse Rate [ 96 H Apical] Pulse Rate [ 96 H From Monitor] Respiratory 20 19 Rate Blood Pressure 105/56 O2 Sat by Pulse 100 Oximetry General appearance: Present: severe distress - EENT Ears: bilateral: normal - Neck Neck: supple - Respiratory Respiratory: bilateral: other (on the vent) - Breasts Breasts: deferred - Cardiovascular Rhythm: regular Heart Sounds: Present: S1 & S2. Absent: gallop, rub Extremities: pulses intact, No edema, normal color, Full ROM - Gastrointestinal General gastrointestinal: Present: soft, non-tender, non-distended, normal bowel sounds Rectal Exam: deferred - Genitourinary Female genitourinary: deferred, normal - Integumentary Integumentary: clear, warm, dry - Labs CBC & Chem 7: 08/20/17 03:20 08/20/17 03:20 Labs: Abnormal lab results 08/17/17 08/19/17 08/20/17 Range/Units 11:20 11:16 00:35 WBC (4.5-11.0) K/mm3 RBC (3.65-5.03) M/mm3 Hgb (10.1-14.3) gm/dl Hct (30.3-42.9) % RDW (13.2-15.2) % Seg Neuts % (Manual) (40.0-70.0) % Lymphocytes % (Manual) (13.4-35.0) % Seg Neutrophils # Man (1.8-7.7) K/mm3 Monocytes # (Manual) (0.0-0.8) K/mm3 Eosinophils # (Manual) (0.0-0.4) K/mm3 POC ABG pH (7.35-7.45) POC ABG pCO2 (35-45) POC ABG pO2 (80-105) Sodium (137-145) mmol/L BUN (7-17) mg/dL Creatinine (0.7-1.2) mg/dL Glucose (65-100) mg/dL POC Glucose 143 H 164 H (70-105) Calcium (8.4-10.2) mg/dL Phosphorus (2.5-4.5) mg/dL Magnesium (1.7-2.3) mg/dL Miscellaneous Test Flexitest 1 H 08/20/17 08/20/17 08/20/17 Range/Units 03:20 03:20 04:00 WBC 48.0 H* (4.5-11.0) K/mm3 RBC 2.55 L (3.65-5.03) M/mm3 Hgb 7.6 L (10.1-14.3) gm/dl Hct 23.4 L (30.3-42.9) % RDW 18.4 H (13.2-15.2) % Seg Neuts % (Manual) 90.0 H (40.0-70.0) % Lymphocytes % (Manual) 3.0 L (13.4-35.0) % Seg Neutrophils # Man 43.2 H (1.8-7.7) K/mm3 Monocytes # (Manual) 1.4 H (0.0-0.8) K/mm3 Eosinophils # (Manual) 0.5 H (0.0-0.4) K/mm3 POC ABG pH 7.499 H (7.35-7.45) POC ABG pCO2 29.1 L (35-45) POC ABG pO2 (80-105) Sodium 135 L (137-145) mmol/L BUN 28 H (7-17) mg/dL Creatinine 4.0 H (0.7-1.2) mg/dL Glucose 140 H (65-100) mg/dL POC Glucose (70-105) Calcium 8.0 L (8.4-10.2) mg/dL Phosphorus 1.70 L (2.5-4.5) mg/dL Magnesium 1.60 L (1.7-2.3) mg/dL Miscellaneous Test 08/20/17 08/20/17 08/20/17 Range/Units 05:02 12:05 13:12 WBC (4.5-11.0) K/mm3 RBC (3.65-5.03) M/mm3 Hgb (10.1-14.3) gm/dl Hct (30.3-42.9) % RDW (13.2-15.2) % Seg Neuts % (Manual) (40.0-70.0) % Lymphocytes % (Manual) (13.4-35.0) % Seg Neutrophils # Man (1.8-7.7) K/mm3 Monocytes # (Manual) (0.0-0.8) K/mm3 Eosinophils # (Manual) (0.0-0.4) K/mm3 POC ABG pH 7.537 H (7.35-7.45) POC ABG pCO2 27.9 L (35-45) POC ABG pO2 79 L (80-105) Sodium (137-145) mmol/L BUN (7-17) mg/dL Creatinine (0.7-1.2) mg/dL Glucose (65-100) mg/dL POC Glucose 158 H 203 H (70-105) Calcium (8.4-10.2) mg/dL Phosphorus (2.5-4.5) mg/dL Magnesium (1.7-2.3) mg/dL Miscellaneous Test
[2017-08-21] MEDS: LEVOPHED 8 MG in NACL 0.9% 250ML 242 ML IV SCH ×3 (02:49→18:46)
[2017-08-21 04:40] LABS: ISTAT Base Excess -1; ISTAT HCO3 22.1; ISTAT PCO2 29.6 (35-45); ISTAT PH 7.481 (7.35-7.45); ISTAT PO2 104 (80-105); ISTAT SO2 98; ISTAT TCO2 23
[2017-08-21] MEDS: MORPHINE IV PRN ×3 (06:47→18:50)
[2017-08-21 07:01] LABS: Hematocrit 22.1 % (30.3-42.9); Hemoglobin 7.1 gm/dl (10.1-14.3); Mean Corpuscular HGB Conc 32 % (30-34); Mean Corpuscular Hemoglobin 30 pg (28-32); Mean Corpuscular Volume 92 fl (79-97); Platelet Count 267 K/mm3 (140-440); Red Blood Count 2.41 M/mm3 (3.65-5.03); Red Cell Distribution Width 18.3 % (13.2-15.2)
[2017-08-21 07:02] LABS: White Blood Count 44.7 K/mm3 (4.5-11.0)
--- NOTE | 2017-08-21 07:17 | Progress Note ---
Assessment and Plan Assessment and plan: --Acute hypoxic respiratory failure. Patient remains on mechanical ventilation postoperatively. wean as tolerated and extubate , pulmonary following --Septic shock. Secondary to peritonitis. Complex catheter related UTI Continue vancomycin , meropenem and Diflucan. ID following. ID following --End-stage renal disease , PD catheter removed, Vas-Cath placement, hemodialysis per schedule Nephrology following --Anemia secondary to end-stage renal disease; hemoglobin of 7.1 Consider 1 unit PRBC transfusion during dialysis if needed --Hypophosphatemia/hypomagnesemia ;corrected --Urinary retention/ ? Infected stents. Urology evaluated the patient --Bowel obstruction / status post exploratory lap with removal of PD catheter as a cause of obstruction. --Peritonitis /small bowel obstruction , s/p G-tube placement, abdominal washout , removal of PD catheter. surgery following. --Ulcerative esophagitis/small gastric ulcer on EGD. Continue current medications ,Biopsy report pending --Sepsis secondary to peritonitis /catheter related complex UTI present on admission .continue antibiotics --Severe Protein calorie malnutrition. Continue TPN and supportive care --Leukocytosis. Secondary to peritonitis, complex complicated UTI, ID and hematology following --DVT prophylaxis; SCDs Consults and recommendations noted Plan of care discussed with the patient's nurse Critical care time 32 minutes The high probability of a clinically significant, sudden or life threatening deterioration of the [hemodynamic, respiratory, renal, gastrointestinal] system( s) required my full and direct attention, intervention and personal management. The aggregate critical care time was [32] minutes. This time is in addition to time spent performing reported procedures but includes the following: [x] Data Review and interpretation [x] Patient assessment and monitoring of vital signs [x] Documentation [x] Medication orders and management History Interval history: Patient seen and examined this morning Medical records reviewed, remains intubated on ventilatory support Responding to simple questions by moving No new events reported by the nursing staff Mild drop in H&H, hemoglobin 7.1 Hospitalist Physical - Constitutional Vitals: Temp Pulse Resp BP Pulse Ox 98 F 98 H 21 103/70 98 08/21/17 03:17 08/21/17 04:30 08/21/17 04:30 08/21/17 04:30 08/21/17 04:30 General appearance: Present: no acute distress, obese, other (intubated and on ventilatory support) - EENT Eyes: Present: PERRL, EOM intact - Neck Neck: Present: supple, normal ROM - Respiratory Respiratory effort: normal Respiratory: bilateral: diminished, negative: rales, rhonchi - Cardiovascular Rhythm: regular Heart Sounds: Present: S1 & S2 - Extremities Extremities: no ischemia, No edema - Abdominal General gastrointestinal: soft, non-tender, non-distended, normal bowel sounds - Integumentary Integumentary: Present: clear, warm - Psychiatric Psychiatric: other (intubated on vent) - Neurologic Neurologic: other (intubated on vent) Results - Labs CBC & Chem 7: 08/21/17 06:50 08/21/17 06:50 Labs: Laboratory Last Values WBC 44.7 K/mm3 (4.5-11.0) H* 08/21/17 06:50 RBC 2.41 M/mm3 (3.65-5.03) L 08/21/17 06:50 Hgb 7.1 gm/dl (10.1-14.3) L 08/21/17 06:50 Hct 22.1 % (30.3-42.9) L 08/21/17 06:50 MCV 92 fl (79-97) 08/21/17 06:50 MCH 30 pg (28-32) 08/21/17 06:50 MCHC 32 % (30-34) 08/21/17 06:50 RDW 18.3 % (13.2-15.2) H 08/21/17 06:50 Plt Count 267 K/mm3 (140-440) 08/21/17 06:50 Lymph % (Auto) Bag Machine Adjuster 08/19/17 07:37 Elliott % (Auto) Bag Machine Adjuster 08/19/17 07:37 Eos % (Auto) Bag Machine Adjuster 08/19/17 07:37 Baso % (Auto) Bag Machine Adjuster 08/19/17 07:37 Lymph # Bag Machine Adjuster 08/19/17 07:37 Elliott # Bag Machine Adjuster 08/19/17 07:37 Eos # Bag Machine Adjuster 08/19/17 07:37 Baso # Bag Machine Adjuster 08/19/17 07:37 Add Manual Diff Complete 08/20/17 03:20 Total Counted 100 08/20/17 03:20 Seg Neutrophils % Bag Machine Adjuster 08/19/17 07:37 Seg Neuts % (Manual) 90.0 % (40.0-70.0) H 08/20/17 03:20 Band Neutrophils % 3.0 % 08/20/17 03:20 Lymphocytes % (Manual) 3.0 % (13.4-35.0) L 08/20/17 03:20 Reactive Lymphs % (Man) 0 % 08/20/17 03:20 Monocytes % (Manual) 3.0 % (0.0-7.3) 08/20/17 03:20 Eosinophils % (Manual) 1.0 % (0.0-4.3) 08/20/17 03:20 Basophils % (Manual) 0 % (0.0-1.8) 08/19/17 05:00 Metamyelocytes % 0 % 08/20/17 03:20 Myelocytes % 0 % 08/20/17 03:20 Promyelocytes % 0 % 08/20/17 03:20 Blast Cells % 0 % 08/20/17 03:20 Nucleated RBC % Not Reportable 08/20/17 03:20 Seg Neutrophils # Bag Machine Adjuster 08/19/17 07:37 Seg Neutrophils # Man 43.2 K/mm3 (1.8-7.7) H 08/20/17 03:20 Band Neutrophils # 1.4 K/mm3 08/20/17 03:20 Lymphocytes # (Manual) 1.4 K/mm3 (1.2-5.4) 08/20/17 03:20 Abs React Lymphs (Man) 0.0 K/mm3 08/20/17 03:20 Monocytes # (Manual) 1.4 K/mm3 (0.0-0.8) H 08/20/17 03:20 Eosinophils # (Manual) 0.5 K/mm3 (0.0-0.4) H 08/20/17 03:20 Basophils # (Manual) 0.0 K/mm3 (0.0-0.1) 08/20/17 03:20 Metamyelocytes # 0.0 K/mm3 08/20/17 03:20 Myelocytes # 0.0 K/mm3 08/20/17 03:20 Promyelocytes # 0.0 K/mm3 08/20/17 03:20 Blast Cells # 0.0 K/mm3 08/20/17 03:20 WBC Morphology Not Reportable 08/20/17 03:20 Hypersegmented Neuts Not Reportable 08/20/17 03:20 Hyposegmented Neuts Not Reportable 08/20/17 03:20 Hypogranular Neuts Not Reportable 08/20/17 03:20 Smudge Cells Not Reportable 08/20/17 03:20 Toxic Granulation Not Reportable 08/20/17 03:20 Toxic Vacuolation Not Reportable 08/20/17 03:20 Dohle Bodies Not Reportable 08/20/17 03:20 Pelger-Huet Anomaly Not Reportable 08/20/17 03:20 Ariel Rods Not Reportable 08/20/17 03:20 Platelet Estimate Consistent w auto 08/20/17 03:20 Clumped Platelets Few 08/20/17 03:20 Plt Clumps, EDTA Not Reportable 08/20/17 03:20 Large Platelets Not Reportable 08/20/17 03:20 Giant Platelets Not Reportable 08/20/17 03:20 Platelet Satelliting Not Reportable 08/20/17 03:20 Plt Morphology Comment Not Reportable 08/20/17 03:20 RBC Morphology Not Reportable 08/20/17 03:20 Dimorphic RBCs Not Reportable 08/20/17 03:20 Polychromasia Few 08/20/17 03:20 Hypochromasia Not Reportable 08/20/17 03:20 Poikilocytosis Not Reportable 08/20/17 03:20 Anisocytosis Not Reportable 08/20/17 03:20 Microcytosis Not Reportable 08/20/17 03:20 Macrocytosis Not Reportable 08/20/17 03:20 Spherocytes Not Reportable 08/20/17 03:20 Pappenheimer Bodies Not Reportable 08/20/17 03:20 Sickle Cells Not Reportable 08/20/17 03:20 Target Cells 1+ 08/20/17 03:20 Tear Drop Cells Not Reportable 08/20/17 03:20 Ovalocytes Not Reportable 08/20/17 03:20 Stomatocytes Few 08/20/17 03:20 Helmet Cells Not Reportable 08/20/17 03:20 [place] Bodies Not Reportable 08/20/17 03:20 Hertel Rings Not Reportable 08/20/17 03:20 Yusuf Cells Not Reportable 08/20/17 03:20 Bite Cells Not Reportable 08/20/17 03:20 Crenated Cell Not Reportable 08/20/17 03:20 Elliptocytes Not Reportable 08/20/17 03:20 Acanthocytes (Spur) Not Reportable 08/20/17 03:20 Rouleaux Not Reportable 08/20/17 03:20 Hemoglobin C Crystals Not Reportable 08/20/17 03:20 Schistocytes Not Reportable 08/20/17 03:20 Malaria parasites Not Reportable 08/20/17 03:20 Jovanni Bodies Not Reportable 08/20/17 03:20 Hem Pathologist Commnt No 08/20/17 03:20 PT 16.0 Sec. (12.2-14.9) H 08/17/17 11:20 INR 1.29 (0.87-1.13) H 08/17/17 11:20 APTT 35.5 Sec. (24.2-36.6) 08/12/17 05:50 POC ABG pH 7.481 (7.35-7.45) H 08/21/17 03:14 POC ABG pCO2 29.6 (35-45) L 08/21/17 03:14 POC ABG pO2 104 (80-105) 08/21/17 03:14 POC ABG HCO3 22.1 08/21/17 03:14 POC ABG Total CO2 23 08/21/17 03:14 POC ABG O2 Sat 98 08/21/17 03:14 POC ABG Base Excess -1 08/21/17 03:14 VBG pH 7.462 (7.320-7.420) H 08/08/17 14:52 FiO2 30 % 08/21/17 03:14 Sodium 135 mmol/L (137-145) L 08/20/17 03:20 Potassium 4.4 mmol/L (3.6-5.0) 08/20/17 03:20 Chloride 100.8 mmol/L (98-107) 08/20/17 03:20 Carbon Dioxide 22 mmol/L (22-30) 08/20/17 03:20 Anion Gap 17 mmol/L 08/20/17 03:20 BUN 28 mg/dL (7-17) H 08/20/17 03:20 Creatinine 4.0 mg/dL (0.7-1.2) H 08/20/17 03:20 Estimated GFR 14 ml/min 08/20/17 03:20 BUN/Creatinine Ratio 7.00 % 08/20/17 03:20 Glucose 140 mg/dL (65-100) H 08/20/17 03:20 POC Glucose 166 (70-105) H 08/21/17 05:05 Lactic Acid 1.60 mmol/L (0.7-2.0) 08/17/17 11:20 Calcium 8.0 mg/dL (8.4-10.2) L 08/20/17 03:20 Phosphorus 1.70 mg/dL (2.5-4.5) L 08/20/17 03:20 Magnesium 1.60 mg/dL (1.7-2.3) L 08/20/17 03:20 Total Bilirubin 0.40 mg/dL (0.1-1.2) 08/17/17 16:57 Direct Bilirubin 0.2 mg/dL (0-0.2) 08/08/17 14:11 Indirect Bilirubin 0.3 mg/dL 08/08/17 14:11 AST 85 units/L (5-40) H 08/17/17 16:57 ALT 17 units/L (7-56) 08/17/17 16:57 Alkaline Phosphatase 96 units/L (35-129) 08/17/17 16:57 Ammonia 25.0 umol/L (25-60) 08/08/17 14:52 Troponin T 0.132 ng/mL (0.00-0.029) H* 08/09/17 13:25 C-Reactive Protein 34.20 mg/dL (0.00-1.30) H 08/19/17 09:52 NT-Pro-B Natriuret Pep 6156 pg/mL (0-900) H 08/08/17 14:11 Total Protein 4.0 g/dL (6.3-8.2) L D 08/17/17 16:57 Albumin 1.6 g/dL (3.9-5) L 08/17/17 16:57 Albumin/Globulin Ratio 0.7 % 08/17/17 16:57 Triglycerides 62 mg/dL (2-149) 08/08/17 21:23 Cholesterol 91 mg/dL (50-199) 08/08/17 21:23 LDL Cholesterol Direct 53 mg/dL (50-130) 08/08/17 21:23 HDL Cholesterol 26 mg/dL (40-59) L 08/08/17 21:23 Cholesterol/HDL Ratio 3.50 % 08/08/17 21:23 Amylase 45 units/L (27-131) 08/16/17 09:50 Lipase 34 units/L (13-60) 08/16/17 09:50 TSH 6.580 mlU/mL (0.270-4.200) H 08/08/17 14:22 Free T4 1.46 ng/dL (0.76-1.46) 08/08/17 14:22 Total Cortisol 30.1 mcg/dL () 08/13/17 06:14 Urine Color Yellow (Yellow) 08/08/17 20:15 Urine Turbidity Turbid (Clear) 08/08/17 20:15 Urine pH 8.0 (5.0-7.0) H 08/08/17 20:15 Ur Specific [place] 1.015 (1.003-1.030) 08/08/17 20:15 Urine Protein 100 mg/dl mg/dL (Negative) 08/08/17 20:15 Urine Glucose (UA) Neg mg/dL (Negative) 08/08/17 20:15 Urine Ketones Neg mg/dL (Negative) 08/08/17 20:15 Urine Blood Mod (Negative) 08/08/17 20:15 Urine Nitrite Neg (Negative) 08/08/17 20:15 Urine Bilirubin Neg (Negative) 08/08/17 20:15 Urine Urobilinogen < 2.0 mg/dL (<2.0) 08/08/17 20:15 Ur Leukocyte Esterase Lg (Negative) 08/08/17 20:15 Urine WBC (Auto) 24.0 /HPF (0.0-6.0) H 08/08/17 20:15 Urine RBC (Auto) 3.0 /HPF (0.0-6.0) 08/08/17 20:15 U Epithel Cells (Auto) 3.0 /HPF (0-13.0) 08/08/17 20:15 Urine Bacteria (Auto) 4+ /HPF (Negative) 08/08/17 20:15 Urine Mucus 3+ /HPF 08/08/17 20:15 Fluid Type Peritoneal 08/08/17 18:18 Fluid Color Straw 08/08/17 18:18 Fluid Appearance Clear 08/08/17 18:18 Fluid pH 7.74 08/08/17 18:18 Fluid WBC 4 /mm3 08/08/17 18:18 Fluid RBC 1 /mm3 08/08/17 18:18 Fluid Seg Neutrophils 12 % 08/08/17 18:18 Fluid Lymphocytes 0 % 08/08/17 18:18 Fluid Reactive Lymphs 0 % 08/08/17 18:18 Fluid Monocytes 1 % 08/08/17 18:18 Fluid Eosinophils 0 % 08/08/17 18:18 Fluid Basophils 0 % 08/08/17 18:18 Fluid Glucose 315 mg/dL (40-70) H 08/08/17 18:18 Random Vancomycin 21 ug/mL (0-40.0) 08/19/17 05:00 Miscellaneous Test Flexitest 1 H 08/17/17 11:20 Blood Type O POSITIVE 08/17/17 11:20 Antibody Screen Negative 08/17/17 11:20
[2017-08-21 07:19] LABS: Albumin 1.4 g/dL (3.9-5); Albumin/Globulin Ratio 0.4 %; Alkaline Phosphatase 164 units/L (35-129); Anion Gap 17 mmol/L; BUN/Creatinine Ratio 8.86; Blood Urea Nitrogen 39 mg/dL (7-17); Calcium 8.1 mg/dL (8.4-10.2); Carbon Dioxide 22 mmol/L (22-30); Chloride 100.2 mmol/L (98-107); Glucose 147 mg/dL (65-100); Potassium 4.6 mmol/L (3.6-5.0); Sodium 135 mmol/L (137-145); Total Protein 4.7 g/dL (6.3-8.2)
[2017-08-21 07:22] LABS: Alanine Aminotransferase < 5 units/L (7-56)
[2017-08-21] MEDS ORDERED: NACL 0.9% 100 ML IV PRN (07:32)
--- NOTE | 2017-08-21 07:32 | Progress Note ---
Assessment and Plan - Patient Problems (1) ESRD (end stage renal disease) on dialysis Current Visit: Yes Status: Acute Plan to address problem: Patient was switched from PD to hemodialysis. Continue HD, MWF schedule. Patient is on TPN. (2) Hyperkalemia Current Visit: Yes Status: Acute Plan to address problem: Improved with hemodialysis. (3) Anemia Current Visit: No Status: Chronic Qualifiers: Anemia type: due to chronic kidney disease Iron deficiency anemia type: I Vitamin B12 deficiency anemia type: V Folate deficiency anemia type: F Bone marrow failure anemia type: B Hemolytic anemia type: H Other causes of anemia: O Chronic kidney disease stage: on chronic dialysis Qualified Code(s ): N18.6 - End stage renal disease; D63.1 - Anemia in chronic kidney disease; Z99.2 - Dependence on renal dialysis Plan to address problem: Epogen. (4) Hypotension Current Visit: Yes Status: Chronic Qualifiers: Hypotension type: H Trimester: T Plan to address problem: On IV levophed and Vasopressin. (5) Leukocytosis Current Visit: Yes Status: Acute Qualifiers: Leukocytosis type: unspecified Qualified Code(s): D72.829 - Elevated white blood cell count, unspecified (6) Acute respiratory failure with hypoxemia Current Visit: Yes Status: Acute (7) Sepsis Current Visit: Yes Status: Acute Qualifiers: Sepsis type: S Subjective Date of service: 08/21/17 Principal diagnosis: /anemia, poor oral intake. Interval history: Patient was seen and examined at the bedside. Objective - Vital Signs Vital signs: Vital Signs - 12hr 08/20/17 08/20/17 08/20/17 19:39 19:45 19:49 Temperature 99.1 F Pulse Rate 100 H 96 H Pulse Rate [ Apical] Pulse Rate [ From Monitor] Respiratory 20 Rate Respiratory Rate [ Generalized] Blood Pressure 106/59 94/60 O2 Sat by Pulse 100 Oximetry 08/20/17 08/20/17 08/20/17 19:59 20:00 20:10 Temperature Pulse Rate 96 H 95 H Pulse Rate [ 96 H Apical] Pulse Rate [ 96 H From Monitor] Respiratory 20 19 20 Rate Respiratory Rate [ Generalized] Blood Pressure 105/56 105/56 O2 Sat by Pulse 100 100 Oximetry 08/20/17 08/20/17 08/20/17 20:15 20:30 20:45 Temperature Pulse Rate 95 H 97 H 94 H Pulse Rate [ Apical] Pulse Rate [ From Monitor] Respiratory 19 21 21 Rate Respiratory Rate [ Generalized] Blood Pressure 93/53 90/57 97/53 O2 Sat by Pulse Oximetry 08/20/17 08/20/17 08/20/17 21:00 21:15 21:30 Temperature Pulse Rate 96 H 95 H 94 H Pulse Rate [ Apical] Pulse Rate [ From Monitor] Respiratory 20 20 20 Rate Respiratory Rate [ Generalized] Blood Pressure 90/59 82/55 99/57 O2 Sat by Pulse 100 Oximetry 08/20/17 08/20/17 08/20/17 21:45 22:00 22:15 Temperature Pulse Rate 94 H 94 H 95 H Pulse Rate [ Apical] Pulse Rate [ From Monitor] Respiratory 20 19 19 Rate Respiratory 24 Rate [ Generalized] Blood Pressure 91/52 85/61 105/58 O2 Sat by Pulse Oximetry 08/20/17 08/20/17 08/20/17 22:30 22:45 23:00 Temperature Pulse Rate 95 H 95 H 95 H Pulse Rate [ Apical] Pulse Rate [ From Monitor] Respiratory 19 18 18 Rate Respiratory Rate [ Generalized] Blood Pressure 99/60 103/61 102/58 O2 Sat by Pulse Oximetry 08/20/17 08/20/17 08/20/17 23:13 23:15 23:30 Temperature Pulse Rate 100 H 95 H 96 H Pulse Rate [ Apical] Pulse Rate [ From Monitor] Respiratory 18 22 Rate Respiratory Rate [ Generalized] Blood Pressure 96/59 96/59 105/61 O2 Sat by Pulse 100 Oximetry 08/20/17 08/20/17 08/21/17 23:32 23:45 00:00 Temperature 100 F H Pulse Rate 96 H 95 H Pulse Rate [ 93 H Apical] Pulse Rate [ 93 H From Monitor] Respiratory 19 21 Rate Respiratory Rate [ Generalized] Blood Pressure 110/61 102/61 O2 Sat by Pulse 100 96 Oximetry 08/21/17 08/21/17 08/21/17 00:15 00:30 00:45 Temperature Pulse Rate 95 H 96 H 96 H Pulse Rate [ Apical] Pulse Rate [ From Monitor] Respiratory 18 19 19 Rate Respiratory Rate [ Generalized] Blood Pressure 104/60 109/61 111/62 O2 Sat by Pulse Oximetry 08/21/17 08/21/17 08/21/17 01:00 01:15 01:30 Temperature Pulse Rate 97 H 96 H 97 H Pulse Rate [ Apical] Pulse Rate [ From Monitor] Respiratory 20 19 19 Rate Respiratory Rate [ Generalized] Blood Pressure 106/60 108/34 109/60 O2 Sat by Pulse Oximetry 08/21/17 08/21/17 08/21/17 01:45 02:00 02:16 Temperature Pulse Rate 97 H 96 H 98 H Pulse Rate [ Apical] Pulse Rate [ From Monitor] Respiratory 19 19 19 Rate Respiratory Rate [ Generalized] Blood Pressure 102/59 91/64 96/63 O2 Sat by Pulse 100 98 Oximetry 08/21/17 08/21/17 08/21/17 02:30 02:46 02:57 Temperature Pulse Rate 96 H 98 H 97 H Pulse Rate [ Apical] Pulse Rate [ From Monitor] Respiratory 19 22 Rate Respiratory Rate [ Generalized] Blood Pressure 95/62 93/66 93/66 O2 Sat by Pulse 98 100 Oximetry 08/21/17 08/21/17 08/21/17 03:00 03:15 03:17 Temperature 98 F Pulse Rate 96 H 96 H Pulse Rate [ Apical] Pulse Rate [ From Monitor] Respiratory 19 20 Rate Respiratory Rate [ Generalized] Blood Pressure 93/66 104/59 O2 Sat by Pulse 99 Oximetry 08/21/17 08/21/17 08/21/17 03:30 03:45 04:00 Temperature Pulse Rate 97 H 96 H 96 H Pulse Rate [ Apical] Pulse Rate [ From Monitor] Respiratory 20 21 20 Rate Respiratory Rate [ Generalized] Blood Pressure 104/59 111/69 95/71 O2 Sat by Pulse 100 100 99 Oximetry 08/21/17 08/21/17 08/21/17 04:15 04:30 04:45 Temperature Pulse Rate 97 H 98 H 96 H Pulse Rate [ Apical] Pulse Rate [ From Monitor] Respiratory 20 21 20 Rate Respiratory Rate [ Generalized] Blood Pressure 96/72 103/70 106/70 O2 Sat by Pulse 98 98 Oximetry 08/21/17 08/21/17 08/21/17 05:00 05:15 05:30 Temperature Pulse Rate 97 H 97 H 98 H Pulse Rate [ Apical] Pulse Rate [ From Monitor] Respiratory 19 19 20 Rate Respiratory Rate [ Generalized] Blood Pressure 106/70 122/68 122/69 O2 Sat by Pulse 100 99 99 Oximetry 08/21/17 08/21/17 08/21/17 05:45 06:00 06:15 Temperature Pulse Rate 97 H 98 H 99 H Pulse Rate [ Apical] Pulse Rate [ From Monitor] Respiratory 20 19 23 Rate Respiratory Rate [ Generalized] Blood Pressure 124/70 128/70 115/76 O2 Sat by Pulse 100 99 98 Oximetry 08/21/17 08/21/17 08/21/17 06:30 06:45 07:00 Temperature Pulse Rate 98 H 97 H 99 H Pulse Rate [ Apical] Pulse Rate [ From Monitor] Respiratory 21 20 16 Rate Respiratory Rate [ Generalized] Blood Pressure 114/70 114/62 119/69 O2 Sat by Pulse 99 98 99 Oximetry 08/21/17 07:16 Temperature Pulse Rate 98 H Pulse Rate [ Apical] Pulse Rate [ From Monitor] Respiratory 22 Rate Respiratory Rate [ Generalized] Blood Pressure 129/73 O2 Sat by Pulse 99 Oximetry - General Appearance General appearance: well-developed, appears stated age, obese, intubated (FiO2 30%), other (right groin hemodialysis catheter) EENT: ATNC Neck: supple Respiratory: Present: Clear to Ascultation Cardiology: regular, S1S2, no murmurs Gastrointestinal: normoactive bowel sounds, obese, other (PEG tube noted) Integumentary: no rash Neurologic: other (opens eyes) Musculoskeletal: other (1+ edema of extremities noted) - Lab 08/21/17 06:50 08/21/17 06:50 Most recent lab results Calcium 8.1 mg/dL (8.4-10.2) L 08/21/17 06:50 Phosphorus 2.90 mg/dL (2.5-4.5) D 08/21/17 06:50 Magnesium 2.00 mg/dL (1.7-2.3) 08/21/17 06:50
--- NOTE | 2017-08-21 07:33 | XRay Report ---
Single view chest: Compared to 08/20/17. History: Followup of respiratory failure. Findings: Cardiomegaly. Stable support system. No consolidation, pneumothorax or pleural effusion. Impression: No definite acute lung changes.
[2017-08-21 07:44] LABS: Basophils % (Manual) 0 % (0.0-1.8); Blastocytes % (Manual) 0 %; Eosinophils % (Manual) 0 % (0.0-4.3)
[2017-08-21 07:45] LABS: Anisocytosis 1+; Diff Status Complete; Hypochromasia 1+; Ovalocytes 1+; Poikilocytosis 1+; Polychromasia Few; Target Cells 1+
--- NOTE | 2017-08-21 08:32 | Progress Note ---
Assessment and Plan Assessment: 1) Sepsis with septic shock: worsening leukocytosis; source bowel obstruction / suspect perforation. -CRP=28-->32-->34 -WBC=39 --> 45 --> 48 -->44K -procalcitonin=1.3 2) Bowel obstruction / suspect perforation ? peritonitis -S/P Exlap, G-tube placement, EGD, abdominal washout and removal of PD -OR findings - bowel obstruction due to entanglement of PD cath, abscess cavity in LUQ and ? suspect perforation of unclear location -Repeat CT - improved ascitis 3) CA-UTI: chronic ivan exchanged every 4 weeks and ureteral stents in place which are exchanged every 6 months ? 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 6) Recent pancreatitis 7) Penicillin allergy-has taken keflex w/o problems Plan: -f/u repeat blood cultures, UA, Urine cx -continue meropenem day 9, fluconazole day 6 and vancomycin day 6 -will narrow down soon Thank you Dr Davis for your consultation, will follow up with you. Ramya Lang MD Infectious Diseases Specialist [facility] ([facility] M [phone] O [phone] Subjective Date of service: 08/21/17 Principal diagnosis: /anemia, poor oral intake. Interval history: Remains critically ill, intubated on the vent, still on levophed at 20 mcg. vasopressin stopped this am. Tmax 100.1 Microbiology: Blood cultures: 08/08 neg 08/12 neg 08/16 neg 08/20 ngtd Urine cultures: 08/08 10-100K skin grace Respiratory cultures: Wound cultures: Stool cultures: Other: 08/08 peritoneal fluid + CARDIOPULMONARY TECHNICIAN/Diphteroids Current Antimicrobials: 08/13 meropenem 08/16 fluconazole 08/16 vancomycin Previous Antimicrobials: 08/10 levaquin Objective - Exam Narrative Exam: General appearance: sedated on the vent in NAD Eyes: anicteric sclerae, moist conjunctivae; no lid-lag; PERRLA HENT: Atraumatic;+ ETT +NGT Neck: Trachea midline; supple, no thyromegaly or lymphadenopathy Lungs: coarse BS moreno CV: RRR, no murmurs Abdomen: soft, midline surgical wound with kelli a drain covered with surg dressings Extremities: + peripheral edema + leg ulcer Skin: Normal temperature, turgor and texture; no rash, ulcers or subcutaneous nodules Psych: sedated. Neuro: sedated Lines: Right vascath femoral / Right IJ Nair 08/16 - Constitutional Vitals: Vital Signs Temp Pulse Resp BP Pulse Ox 98 F 98 H 22 129/73 99 08/21/17 03:17 08/21/17 07:16 08/21/17 07:16 08/21/17 07:16 08/21/17 07:16 Temperature -Last 24 Hours Temperature 98 F Temperature 100 F Temperature 99.1 F Temperature 97.6 F Temperature 98.2 F - Labs CBC & Chem 7: 08/21/17 06:50 08/21/17 06:50 Labs: Abnormal lab results 08/17/17 08/19/17 08/20/17 Range/Units 11:20 11:16 12:05 WBC (4.5-11.0) K/mm3 RBC (3.65-5.03) M/mm3 Hgb (10.1-14.3) gm/dl Hct (30.3-42.9) % RDW (13.2-15.2) % Seg Neuts % (Manual) (40.0-70.0) % Lymphocytes % (Manual) (13.4-35.0) % Nucleated RBC % (0.0-0.9) % Seg Neutrophils # Man (1.8-7.7) K/mm3 Lymphocytes # (Manual) (1.2-5.4) K/mm3 Monocytes # (Manual) (0.0-0.8) K/mm3 POC ABG pH (7.35-7.45) POC ABG pCO2 (35-45) POC ABG pO2 (80-105) Sodium (137-145) mmol/L BUN (7-17) mg/dL Creatinine (0.7-1.2) mg/dL Glucose (65-100) mg/dL POC Glucose 143 H 203 H (70-105) Calcium (8.4-10.2) mg/dL ALT (7-56) units/L Alkaline Phosphatase (35-129) units/L Total Protein (6.3-8.2) g/dL Albumin (3.9-5) g/dL Miscellaneous Test Flexitest 1 H Crossmatch 08/20/17 08/21/17 08/21/17 Range/Units 13:12 00:47 03:14 WBC (4.5-11.0) K/mm3 RBC (3.65-5.03) M/mm3 Hgb (10.1-14.3) gm/dl Hct (30.3-42.9) % RDW (13.2-15.2) % Seg Neuts % (Manual) (40.0-70.0) % Lymphocytes % (Manual) (13.4-35.0) % Nucleated RBC % (0.0-0.9) % Seg Neutrophils # Man (1.8-7.7) K/mm3 Lymphocytes # (Manual) (1.2-5.4) K/mm3 Monocytes # (Manual) (0.0-0.8) K/mm3 POC ABG pH 7.537 H 7.481 H (7.35-7.45) POC ABG pCO2 27.9 L 29.6 L (35-45) POC ABG pO2 79 L (80-105) Sodium (137-145) mmol/L BUN (7-17) mg/dL Creatinine (0.7-1.2) mg/dL Glucose (65-100) mg/dL POC Glucose 109 H (70-105) Calcium (8.4-10.2) mg/dL ALT (7-56) units/L Alkaline Phosphatase (35-129) units/L Total Protein (6.3-8.2) g/dL Albumin (3.9-5) g/dL Miscellaneous Test Crossmatch 08/21/17 08/21/17 08/21/17 Range/Units 05:05 06:50 06:50 WBC 44.7 H* (4.5-11.0) K/mm3 RBC 2.41 L (3.65-5.03) M/mm3 Hgb 7.1 L (10.1-14.3) gm/dl Hct 22.1 L (30.3-42.9) % RDW 18.3 H (13.2-15.2) % Seg Neuts % (Manual) 89.0 H (40.0-70.0) % Lymphocytes % (Manual) 0 L (13.4-35.0) % Nucleated RBC % 1.0 H (0.0-0.9) % Seg Neutrophils # Man 39.8 H (1.8-7.7) K/mm3 Lymphocytes # (Manual) 0.0 L (1.2-5.4) K/mm3 Monocytes # (Manual) 1.3 H (0.0-0.8) K/mm3 POC ABG pH (7.35-7.45) POC ABG pCO2 (35-45) POC ABG pO2 (80-105) Sodium 135 L (137-145) mmol/L BUN 39 H (7-17) mg/dL Creatinine 4.4 H (0.7-1.2) mg/dL Glucose 147 H (65-100) mg/dL POC Glucose 166 H (70-105) Calcium 8.1 L (8.4-10.2) mg/dL ALT < 5 L (7-56) units/L Alkaline Phosphatase 164 H (35-129) units/L Total Protein 4.7 L (6.3-8.2) g/dL Albumin 1.4 L (3.9-5) g/dL Miscellaneous Test Crossmatch 08/21/17 Range/Units 08:00 WBC (4.5-11.0) K/mm3 RBC (3.65-5.03) M/mm3 Hgb (10.1-14.3) gm/dl Hct (30.3-42.9) % RDW (13.2-15.2) % Seg Neuts % (Manual) (40.0-70.0) % Lymphocytes % (Manual) (13.4-35.0) % Nucleated RBC % (0.0-0.9) % Seg Neutrophils # Man (1.8-7.7) K/mm3 Lymphocytes # (Manual) (1.2-5.4) K/mm3 Monocytes # (Manual) (0.0-0.8) K/mm3 POC ABG pH (7.35-7.45) POC ABG pCO2 (35-45) POC ABG pO2 (80-105) Sodium (137-145) mmol/L BUN (7-17) mg/dL Creatinine (0.7-1.2) mg/dL Glucose (65-100) mg/dL POC Glucose (70-105) Calcium (8.4-10.2) mg/dL ALT (7-56) units/L Alkaline Phosphatase (35-129) units/L Total Protein (6.3-8.2) g/dL Albumin (3.9-5) g/dL Miscellaneous Test Crossmatch See Detail
[2017-08-21] MEDS ORDERED: NACL 0.9% 500 ML 500 ML IV ONE (09:00)
[2017-08-21] MEDS: DIFLUCAN 200 MG/100 ML BAG IV SCH (09:58)
[2017-08-21] MEDS: PROTONIX IV SCH ×2 (09:58→23:08)
--- NOTE | 2017-08-21 11:38 | Progress Note ---
Assessment and Plan 62 y/o female originally admitted with hypotension, now back to ICU secondary to worsening hypotension, concern for sepsis, with acute respiratory failure post-op from ex-lap for abdominal distention and possible ileus. 1. Hold on sedation for now, PRN meds for pains with wound changes 2. Spoke with surgery, as of right now, no future plans of operations. 3. Will attempt extubation later today, ordered bipap PRN. Ideally this is not the best option for her, given her abdominal issues but I would rather not sedate her just to be on the vent. 4. Follow up any new ID recs 5. Will discuss with renal but may need to consider adding stress dose steroids to help with BP, also could consider sending random cortisol but this is a send out at this hospital. Also will need to ask surgery how they feel about steroids as well as it could impede their healing process Overall prognosis is guarded CCT 31 Subjective Date of service: 08/21/17 Principal diagnosis: /anemia, poor oral intake. Interval history: No HD on yesterday. Remains awake on vent. Tolerated several hours of PSV yesterday and back on it again this am. Daughter at bedside. Objective Vital Signs - 12hr 08/20/17 08/21/17 08/21/17 23:45 00:00 00:15 Temperature Pulse Rate 96 H 95 H 95 H Pulse Rate [ 93 H Apical] Pulse Rate [ 93 H From Monitor] Respiratory 19 21 18 Rate Blood Pressure 110/61 102/61 104/60 O2 Sat by Pulse 100 96 Oximetry 08/21/17 08/21/17 08/21/17 00:30 00:45 01:00 Temperature Pulse Rate 96 H 96 H 97 H Pulse Rate [ Apical] Pulse Rate [ From Monitor] Respiratory 19 19 20 Rate Blood Pressure 109/61 111/62 106/60 O2 Sat by Pulse Oximetry 08/21/17 08/21/17 08/21/17 01:15 01:30 01:45 Temperature Pulse Rate 96 H 97 H 97 H Pulse Rate [ Apical] Pulse Rate [ From Monitor] Respiratory 19 19 19 Rate Blood Pressure 108/34 109/60 102/59 O2 Sat by Pulse 100 Oximetry 08/21/17 08/21/17 08/21/17 02:00 02:16 02:30 Temperature Pulse Rate 96 H 98 H 96 H Pulse Rate [ Apical] Pulse Rate [ From Monitor] Respiratory 19 19 19 Rate Blood Pressure 91/64 96/63 95/62 O2 Sat by Pulse 98 Oximetry 08/21/17 08/21/17 08/21/17 02:46 02:57 03:00 Temperature Pulse Rate 98 H 97 H 96 H Pulse Rate [ Apical] Pulse Rate [ From Monitor] Respiratory 22 19 Rate Blood Pressure 93/66 93/66 93/66 O2 Sat by Pulse 98 100 Oximetry 08/21/17 08/21/17 08/21/17 03:15 03:17 03:30 Temperature 98 F Pulse Rate 96 H 97 H Pulse Rate [ Apical] Pulse Rate [ From Monitor] Respiratory 20 20 Rate Blood Pressure 104/59 104/59 O2 Sat by Pulse 99 100 Oximetry 08/21/17 08/21/17 08/21/17 03:45 04:00 04:15 Temperature Pulse Rate 96 H 96 H 97 H Pulse Rate [ Apical] Pulse Rate [ From Monitor] Respiratory 21 20 20 Rate Blood Pressure 111/69 95/71 96/72 O2 Sat by Pulse 100 99 98 Oximetry 08/21/17 08/21/17 08/21/17 04:30 04:45 05:00 Temperature Pulse Rate 98 H 96 H 97 H Pulse Rate [ Apical] Pulse Rate [ From Monitor] Respiratory 21 20 19 Rate Blood Pressure 103/70 106/70 106/70 O2 Sat by Pulse 98 100 Oximetry 08/21/17 08/21/17 08/21/17 05:15 05:30 05:45 Temperature Pulse Rate 97 H 98 H 97 H Pulse Rate [ Apical] Pulse Rate [ From Monitor] Respiratory 19 20 20 Rate Blood Pressure 122/68 122/69 124/70 O2 Sat by Pulse 99 99 100 Oximetry 08/21/17 08/21/17 08/21/17 06:00 06:15 06:30 Temperature Pulse Rate 98 H 99 H 98 H Pulse Rate [ Apical] Pulse Rate [ From Monitor] Respiratory 19 23 21 Rate Blood Pressure 128/70 115/76 114/70 O2 Sat by Pulse 99 98 99 Oximetry 08/21/17 08/21/17 08/21/17 06:45 07:00 07:16 Temperature Pulse Rate 97 H 99 H 98 H Pulse Rate [ Apical] Pulse Rate [ From Monitor] Respiratory 20 16 22 Rate Blood Pressure 114/62 119/69 129/73 O2 Sat by Pulse 98 99 99 Oximetry 08/21/17 08/21/17 08/21/17 07:30 07:45 08:00 Temperature 97.8 F Pulse Rate 97 H 96 H 95 H Pulse Rate [ Apical] Pulse Rate [ From Monitor] Respiratory 20 21 20 Rate Blood Pressure 129/73 118/79 104/62 O2 Sat by Pulse 100 100 Oximetry 08/21/17 08/21/17 08/21/17 08:15 08:30 08:45 Temperature Pulse Rate 94 H 95 H 94 H Pulse Rate [ Apical] Pulse Rate [ From Monitor] Respiratory 21 20 20 Rate Blood Pressure 107/63 107/63 93/62 O2 Sat by Pulse 99 100 100 Oximetry 08/21/17 08/21/17 08/21/17 09:00 09:16 09:30 Temperature Pulse Rate 94 H 99 H 101 H Pulse Rate [ Apical] Pulse Rate [ From Monitor] Respiratory 24 22 17 Rate Blood Pressure 93/62 93/62 93/62 O2 Sat by Pulse 97 99 100 Oximetry 08/21/17 08/21/17 08/21/17 09:45 10:00 10:15 Temperature Pulse Rate 100 H 98 H 97 H Pulse Rate [ Apical] Pulse Rate [ From Monitor] Respiratory 24 30 H 29 H Rate Blood Pressure 103/70 103/70 110/72 O2 Sat by Pulse 100 100 98 Oximetry 08/21/17 08/21/17 10:30 10:45 Temperature Pulse Rate 96 H 96 H Pulse Rate [ Apical] Pulse Rate [ From Monitor] Respiratory 26 H 27 H Rate Blood Pressure 116/66 126/69 O2 Sat by Pulse 100 100 Oximetry Constitutional: alert, lethargic, appears uncomfortable, other (orally intubated , critically ill on vent. Not sedated) Eyes: non-icteric ENT: oropharynx moist Neck: supple, no lymphadenopathy, no JVD Effort: mildly labored Ascultation: Bilateral: diminished breath sounds, rhonchi (mild) Cardiovascular: regular rate and rhythm Gastrointestinal: absent bowel sounds, tender, other (abdominal incision with dressing noted) Extremities: no cyanosis, no edema, pink and warm Neurologic: other (sedated) CBC and BMP: 08/21/17 06:50 08/21/17 06:50 ABG, PT/INR, D-dimer: ABG POC ABG pH 7.481 (7.35-7.45) H 08/21/17 03:14 POC ABG pCO2 29.6 (35-45) L 08/21/17 03:14 POC ABG pO2 104 (80-105) 08/21/17 03:14 POC ABG HCO3 22.1 08/21/17 03:14 POC ABG Total CO2 23 08/21/17 03:14 POC ABG O2 Sat 98 08/21/17 03:14 PT/INR, D-dimer PT 16.0 Sec. (12.2-14.9) H 08/17/17 11:20 INR 1.29 (0.87-1.13) H 08/17/17 11:20 Abnormal lab findings: Abnormal Labs 08/08/17 08/08/17 08/09/17 21:23 21:31 11:19 WBC 15.7 H RBC 2.93 L Hgb 8.7 L Hct 26.8 L MCV RDW 19.2 H Plt Count Lymph % (Auto) Holmes % (Auto) Holmes # Seg Neutrophils % Seg Neuts % (Manual) Lymphocytes % (Manual) Monocytes % (Manual) Nucleated RBC % Seg Neutrophils # Seg Neutrophils # Man Lymphocytes # (Manual) Monocytes # (Manual) Eosinophils # (Manual) Basophils # (Manual) PT INR POC ABG pH 7.490 H POC ABG pCO2 POC ABG pO2 122 H Sodium Potassium Chloride Carbon Dioxide BUN Creatinine Glucose POC Glucose Calcium Phosphorus Magnesium AST ALT Alkaline Phosphatase Troponin T 0.133 H* C-Reactive Protein Total Protein Albumin HDL Cholesterol 26 L Miscellaneous Test Crossmatch 08/09/17 08/10/17 08/10/17 13:25 04:45 04:45 WBC 15.5 H RBC 2.97 L Hgb 8.9 L Hct 27.0 L MCV RDW 19.2 H Plt Count Lymph % (Auto) Holmes % (Auto) Holmes # Seg Neutrophils % Seg Neuts % (Manual) 73.0 H Lymphocytes % (Manual) 7.0 L Monocytes % (Manual) 14.0 H Nucleated RBC % Seg Neutrophils # Seg Neutrophils # Man 11.3 H Lymphocytes # (Manual) 1.1 L Monocytes # (Manual) 2.2 H Eosinophils # (Manual) Basophils # (Manual) 0.2 H PT INR POC ABG pH POC ABG pCO2 POC ABG pO2 Sodium Potassium 3.3 L Chloride 97.3 L Carbon Dioxide 21 L BUN 23 H Creatinine 6.5 H Glucose POC Glucose Calcium 7.3 L Phosphorus Magnesium AST ALT Alkaline Phosphatase 138 H Troponin T 0.132 H* C-Reactive Protein Total Protein 4.8 L Albumin 1.4 L HDL Cholesterol Miscellaneous Test Crossmatch 08/11/17 08/11/17 08/12/17 04:00 04:00 05:50 WBC 19.3 H RBC 3.10 L Hgb 9.5 L Hct 28.2 L MCV RDW 19.2 H Plt Count 463 H Lymph % (Auto) 7.5 L Holmes % (Auto) 14.6 H Holmes # 2.8 H Seg Neutrophils % 77.0 H Seg Neuts % (Manual) Lymphocytes % (Manual) Monocytes % (Manual) Nucleated RBC % Seg Neutrophils # 14.8 H Seg Neutrophils # Man Lymphocytes # (Manual) Monocytes # (Manual) Eosinophils # (Manual) Basophils # (Manual) PT INR POC ABG pH POC ABG pCO2 POC ABG pO2 Sodium 136 L 136 L Potassium 3.3 L Chloride 96.3 L 96.6 L Carbon Dioxide BUN 26 H 26 H Creatinine 6.4 H 6.2 H Glucose 135 H 133 H POC Glucose Calcium 8.2 L Phosphorus Magnesium 1.30 L AST ALT Alkaline Phosphatase 139 H Troponin T C-Reactive Protein Total Protein 5.5 L Albumin 1.7 L HDL Cholesterol Miscellaneous Test Crossmatch 08/12/17 08/12/17 08/12/17 05:50 05:50 05:50 WBC 20.1 H RBC 3.06 L Hgb 9.3 L Hct 27.9 L MCV RDW 18.4 H Plt Count 471 H Lymph % (Auto) Holmes % (Auto) Holmes # Seg Neutrophils % Seg Neuts % (Manual) 85.0 H Lymphocytes % (Manual) 8.0 L Monocytes % (Manual) Nucleated RBC % Seg Neutrophils # Seg Neutrophils # Man 17.1 H Lymphocytes # (Manual) Monocytes # (Manual) 1.0 H Eosinophils # (Manual) Basophils # (Manual) PT 15.2 H INR 1.14 H POC ABG pH POC ABG pCO2 POC ABG pO2 Sodium Potassium Chloride Carbon Dioxide BUN Creatinine Glucose POC Glucose Calcium Phosphorus Magnesium AST ALT Alkaline Phosphatase Troponin T C-Reactive Protein 28.90 H Total Protein Albumin HDL Cholesterol Miscellaneous Test Crossmatch 08/12/17 08/13/17 08/13/17 16:23 06:14 06:14 WBC 21.8 H RBC 3.11 L Hgb 9.4 L Hct 28.2 L MCV RDW 18.2 H Plt Count 492 H Lymph % (Auto) Holmes % (Auto) Holmes # Seg Neutrophils % Seg Neuts % (Manual) 73.0 H Lymphocytes % (Manual) 2.0 L Monocytes % (Manual) 15 H Nucleated RBC % Seg Neutrophils # Seg Neutrophils # Man 15.9 H Lymphocytes # (Manual) 0.4 L Monocytes # (Manual) 2.4 H Eosinophils # (Manual) Basophils # (Manual) PT INR POC ABG pH POC ABG pCO2 POC ABG pO2 Sodium Potassium Chloride 96.2 L Carbon Dioxide BUN 28 H Creatinine 5.6 H Glucose 114 H POC Glucose Calcium Phosphorus Magnesium AST ALT Alkaline Phosphatase Troponin T C-Reactive Protein 26.10 H Total Protein Albumin HDL Cholesterol Miscellaneous Test Crossmatch 08/13/17 08/14/17 08/14/17 16:39 04:00 04:00 WBC 22.1 H RBC 3.25 L Hgb 9.9 L Hct 29.5 L MCV RDW 17.9 H Plt Count 525 H Lymph % (Auto) Holmes % (Auto) Holmes # Seg Neutrophils % Seg Neuts % (Manual) 74.0 H Lymphocytes % (Manual) 8.0 L Monocytes % (Manual) 12.0 H Nucleated RBC % Seg Neutrophils # Seg Neutrophils # Man 16.4 H Lymphocytes # (Manual) Monocytes # (Manual) 2.7 H Eosinophils # (Manual) Basophils # (Manual) PT INR POC ABG pH POC ABG pCO2 POC ABG pO2 Sodium 134 L Potassium 3.3 L Chloride 93.3 L Carbon Dioxide BUN 27 H Creatinine 6.0 H Glucose 152 H POC Glucose 151 H Calcium Phosphorus Magnesium AST ALT Alkaline Phosphatase Troponin T C-Reactive Protein Total Protein Albumin HDL Cholesterol Miscellaneous Test Crossmatch 08/15/17 08/16/17 08/16/17 09:10 09:50 09:50 WBC 31.1 H RBC 3.21 L Hgb 9.6 L Hct 29.3 L MCV RDW 18.1 H Plt Count 642 H Lymph % (Auto) Holmes % (Auto) Holmes # Seg Neutrophils % Seg Neuts % (Manual) 74.0 H Lymphocytes % (Manual) 4.0 L Monocytes % (Manual) 9.0 H Nucleated RBC % Seg Neutrophils # Seg Neutrophils # Man 23.0 H Lymphocytes # (Manual) Monocytes # (Manual) 2.8 H Eosinophils # (Manual) Basophils # (Manual) PT INR POC ABG pH POC ABG pCO2 POC ABG pO2 Sodium 136 L 136 L Potassium 3.5 L Chloride 97.6 L 94.9 L Carbon Dioxide BUN 27 H 28 H Creatinine 5.6 H 5.5 H Glucose 117 H 103 H POC Glucose Calcium Phosphorus Magnesium AST ALT Alkaline Phosphatase 137 H Troponin T C-Reactive Protein Total Protein 5.4 L Albumin 1.5 L HDL Cholesterol Miscellaneous Test Crossmatch 08/16/17 08/17/17 08/17/17 09:50 05:00 06:26 WBC RBC Hgb Hct MCV RDW Plt Count Lymph % (Auto) Holmes % (Auto) Holmes # Seg Neutrophils % Seg Neuts % (Manual) Lymphocytes % (Manual) Monocytes % (Manual) Nucleated RBC % Seg Neutrophils # Seg Neutrophils # Man Lymphocytes # (Manual) Monocytes # (Manual) Eosinophils # (Manual) Basophils # (Manual) PT INR POC ABG pH POC ABG pCO2 POC ABG pO2 Sodium 134 L Potassium 3.0 L Chloride 97.8 L Carbon Dioxide BUN 30 H Creatinine 5.3 H Glucose 147 H POC Glucose 165 H Calcium 7.5 L Phosphorus Magnesium AST ALT Alkaline Phosphatase Troponin T C-Reactive Protein 32.30 H Total Protein Albumin HDL Cholesterol Miscellaneous Test Crossmatch 08/17/17 08/17/17 08/17/17 10:56 11:20 11:20 WBC 39.1 H RBC 3.10 L Hgb 9.2 L Hct 28.6 L MCV RDW 18.3 H Plt Count 580 H Lymph % (Auto) Holmes % (Auto) Holmes # Seg Neutrophils % Seg Neuts % (Manual) 89.5 H Lymphocytes % (Manual) 3.5 L Monocytes % (Manual) Nucleated RBC % Seg Neutrophils # Seg Neutrophils # Man 35.0 H Lymphocytes # (Manual) Monocytes # (Manual) 2.5 H Eosinophils # (Manual) Basophils # (Manual) 0.2 H PT INR POC ABG pH 7.464 H POC ABG pCO2 34.1 L POC ABG pO2 75 L Sodium Potassium Chloride Carbon Dioxide BUN Creatinine Glucose POC Glucose Calcium Phosphorus Magnesium AST ALT Alkaline Phosphatase Troponin T C-Reactive Protein Total Protein Albumin HDL Cholesterol Miscellaneous Test Flexitest 1 H Crossmatch 08/17/17 08/17/17 08/17/17 11:20 16:57 20:20 WBC 34.4 H RBC 2.81 L Hgb 8.4 L Hct 26.0 L MCV RDW 17.8 H Plt Count 455 H Lymph % (Auto) Holmes % (Auto) Holmes # Seg Neutrophils % Seg Neuts % (Manual) Lymphocytes % (Manual) 3.5 L Monocytes % (Manual) Nucleated RBC % 5.0 H Seg Neutrophils # Seg Neutrophils # Man 16.5 H Lymphocytes # (Manual) Monocytes # (Manual) 1.0 H Eosinophils # (Manual) Basophils # (Manual) PT 16.0 H INR 1.29 H POC ABG pH POC ABG pCO2 POC ABG pO2 Sodium 135 L Potassium 2.9 L* Chloride Carbon Dioxide 20 L BUN 32 H Creatinine 5.4 H Glucose 129 H POC Glucose Calcium 7.5 L Phosphorus Magnesium 1.50 L AST 85 H ALT Alkaline Phosphatase Troponin T C-Reactive Protein Total Protein 4.0 L D Albumin 1.6 L HDL Cholesterol Miscellaneous Test Crossmatch 08/17/17 08/17/17 08/18/17 20:54 23:47 04:26 WBC RBC Hgb Hct MCV RDW Plt Count Lymph % (Auto) Holmes % (Auto) Holmes # Seg Neutrophils % Seg Neuts % (Manual) Lymphocytes % (Manual) Monocytes % (Manual) Nucleated RBC % Seg Neutrophils # Seg Neutrophils # Man Lymphocytes # (Manual) Monocytes # (Manual) Eosinophils # (Manual) Basophils # (Manual) PT INR POC ABG pH 7.557 H POC ABG pCO2 23.1 L 29.0 L POC ABG pO2 187 H 148 H Sodium Potassium Chloride Carbon Dioxide BUN Creatinine Glucose POC Glucose 188 H Calcium Phosphorus Magnesium AST ALT Alkaline Phosphatase Troponin T C-Reactive Protein Total Protein Albumin HDL Cholesterol Miscellaneous Test Crossmatch 08/18/17 08/18/17 08/18/17 05:51 11:44 17:07 WBC RBC Hgb Hct MCV RDW Plt Count Lymph % (Auto) Holmes % (Auto) Holmes # Seg Neutrophils % Seg Neuts % (Manual) Lymphocytes % (Manual) Monocytes % (Manual) Nucleated RBC % Seg Neutrophils # Seg Neutrophils # Man Lymphocytes # (Manual) Monocytes # (Manual) Eosinophils # (Manual) Basophils # (Manual) PT INR POC ABG pH POC ABG pCO2 POC ABG pO2 Sodium Potassium Chloride Carbon Dioxide BUN Creatinine Glucose POC Glucose 202 H 195 H 182 H Calcium Phosphorus Magnesium AST ALT Alkaline Phosphatase Troponin T C-Reactive Protein Total Protein Albumin HDL Cholesterol Miscellaneous Test Crossmatch 08/18/17 08/18/17 08/18/17 23:45 Unknown Unknown WBC 39.0 H RBC 2.84 L Hgb 8.4 L Hct 26.5 L MCV RDW 18.0 H Plt Count 476 H Lymph % (Auto) Holmes % (Auto) Holmes # Seg Neutrophils % Seg Neuts % (Manual) Lymphocytes % (Manual) 7.0 L Monocytes % (Manual) 10.0 H Nucleated RBC % 3.0 H Seg Neutrophils # Seg Neutrophils # Man 15.6 H Lymphocytes # (Manual) Monocytes # (Manual) 3.9 H Eosinophils # (Manual) Basophils # (Manual) PT INR POC ABG pH POC ABG pCO2 POC ABG pO2 Sodium Potassium Chloride Carbon Dioxide 19 L BUN 34 H Creatinine 5.6 H Glucose 201 H POC Glucose 163 H Calcium 7.8 L Phosphorus 1.90 L D Magnesium 1.60 L AST ALT Alkaline Phosphatase Troponin T C-Reactive Protein Total Protein Albumin HDL Cholesterol Miscellaneous Test Crossmatch 08/19/17 08/19/17 08/19/17 04:18 05:00 05:00 WBC 40.0 H RBC 2.46 L Hgb 7.3 L Hct 22.6 L MCV RDW 18.1 H Plt Count Lymph % (Auto) Holmes % (Auto) Holmes # Seg Neutrophils % Seg Neuts % (Manual) Lymphocytes % (Manual) 8.0 L Monocytes % (Manual) Nucleated RBC % 2.0 H Seg Neutrophils # Seg Neutrophils # Man 16.4 H Lymphocytes # (Manual) Monocytes # (Manual) 1.2 H Eosinophils # (Manual) 1.2 H Basophils # (Manual) PT INR POC ABG pH 7.463 H POC ABG pCO2 29.7 L POC ABG pO2 134 H Sodium Potassium 5.1 H D Chloride Carbon Dioxide 20 L BUN 40 H Creatinine 5.3 H Glucose 128 H POC Glucose Calcium 7.8 L Phosphorus 1.90 L Magnesium AST ALT Alkaline Phosphatase Troponin T C-Reactive Protein Total Protein Albumin HDL Cholesterol Miscellaneous Test Crossmatch 08/19/17 08/19/17 08/19/17 05:19 07:37 09:52 WBC 45.0 H* RBC 2.50 L Hgb 7.5 L Hct 24.5 L MCV 98 H RDW 18.4 H Plt Count Lymph % (Auto) Holmes % (Auto) Holmes # Seg Neutrophils % Seg Neuts % (Manual) 81.5 H Lymphocytes % (Manual) 4.0 L Monocytes % (Manual) Nucleated RBC % 1.0 H Seg Neutrophils # Seg Neutrophils # Man 36.7 H Lymphocytes # (Manual) Monocytes # (Manual) Eosinophils # (Manual) Basophils # (Manual) PT INR POC ABG pH POC ABG pCO2 POC ABG pO2 Sodium Potassium Chloride Carbon Dioxide BUN Creatinine Glucose POC Glucose 142 H Calcium Phosphorus Magnesium AST ALT Alkaline Phosphatase Troponin T C-Reactive Protein 34.20 H Total Protein Albumin HDL Cholesterol Miscellaneous Test Crossmatch 08/19/17 08/19/17 08/20/17 11:16 18:12 00:35 WBC RBC Hgb Hct MCV RDW Plt Count Lymph % (Auto) Holmes % (Auto) Holmes # Seg Neutrophils % Seg Neuts % (Manual) Lymphocytes % (Manual) Monocytes % (Manual) Nucleated RBC % Seg Neutrophils # Seg Neutrophils # Man Lymphocytes # (Manual) Monocytes # (Manual) Eosinophils # (Manual) Basophils # (Manual) PT INR POC ABG pH POC ABG pCO2 POC ABG pO2 Sodium Potassium Chloride Carbon Dioxide BUN Creatinine Glucose POC Glucose 143 H 137 H 164 H Calcium Phosphorus Magnesium AST ALT Alkaline Phosphatase Troponin T C-Reactive Protein Total Protein Albumin HDL Cholesterol Miscellaneous Test Crossmatch 08/20/17 08/20/17 08/20/17 03:20 03:20 04:00 WBC 48.0 H* RBC 2.55 L Hgb 7.6 L Hct 23.4 L MCV RDW 18.4 H Plt Count Lymph % (Auto) Holmes % (Auto) Holmes # Seg Neutrophils % Seg Neuts % (Manual) 90.0 H Lymphocytes % (Manual) 3.0 L Monocytes % (Manual) Nucleated RBC % Seg Neutrophils # Seg Neutrophils # Man 43.2 H Lymphocytes # (Manual) Monocytes # (Manual) 1.4 H Eosinophils # (Manual) 0.5 H Basophils # (Manual) PT INR POC ABG pH 7.499 H POC ABG pCO2 29.1 L POC ABG pO2 Sodium 135 L Potassium Chloride Carbon Dioxide BUN 28 H Creatinine 4.0 H Glucose 140 H POC Glucose Calcium 8.0 L Phosphorus 1.70 L Magnesium 1.60 L AST ALT Alkaline Phosphatase Troponin T C-Reactive Protein Total Protein Albumin HDL Cholesterol Miscellaneous Test Crossmatch 08/20/17 08/20/17 08/20/17 05:02 12:05 13:12 WBC RBC Hgb Hct MCV RDW Plt Count Lymph % (Auto) Holmes % (Auto) Holmes # Seg Neutrophils % Seg Neuts % (Manual) Lymphocytes % (Manual) Monocytes % (Manual) Nucleated RBC % Seg Neutrophils # Seg Neutrophils # Man Lymphocytes # (Manual) Monocytes # (Manual) Eosinophils # (Manual) Basophils # (Manual) PT INR POC ABG pH 7.537 H POC ABG pCO2 27.9 L POC ABG pO2 79 L Sodium Potassium Chloride Carbon Dioxide BUN Creatinine Glucose POC Glucose 158 H 203 H Calcium Phosphorus Magnesium AST ALT Alkaline Phosphatase Troponin T C-Reactive Protein Total Protein Albumin HDL Cholesterol Miscellaneous Test Crossmatch 08/21/17 08/21/17 08/21/17 00:47 03:14 05:05 WBC RBC Hgb Hct MCV RDW Plt Count Lymph % (Auto) Holmes % (Auto) Holmes # Seg Neutrophils % Seg Neuts % (Manual) Lymphocytes % (Manual) Monocytes % (Manual) Nucleated RBC % Seg Neutrophils # Seg Neutrophils # Man Lymphocytes # (Manual) Monocytes # (Manual) Eosinophils # (Manual) Basophils # (Manual) PT INR POC ABG pH 7.481 H POC ABG pCO2 29.6 L POC ABG pO2 Sodium Potassium Chloride Carbon Dioxide BUN Creatinine Glucose POC Glucose 109 H 166 H Calcium Phosphorus Magnesium AST ALT Alkaline Phosphatase Troponin T C-Reactive Protein Total Protein Albumin HDL Cholesterol Miscellaneous Test Crossmatch 08/21/17 08/21/17 08/21/17 06:50 06:50 08:00 WBC 44.7 H* RBC 2.41 L Hgb 7.1 L Hct 22.1 L MCV RDW 18.3 H Plt Count Lymph % (Auto) Holmes % (Auto) Holmes # Seg Neutrophils % Seg Neuts % (Manual) 89.0 H Lymphocytes % (Manual) 0 L Monocytes % (Manual) Nucleated RBC % 1.0 H Seg Neutrophils # Seg Neutrophils # Man 39.8 H Lymphocytes # (Manual) 0.0 L Monocytes # (Manual) 1.3 H Eosinophils # (Manual) Basophils # (Manual) PT INR POC ABG pH POC ABG pCO2 POC ABG pO2 Sodium 135 L Potassium Chloride Carbon Dioxide BUN 39 H Creatinine 4.4 H Glucose 147 H POC Glucose Calcium 8.1 L Phosphorus Magnesium AST ALT < 5 L Alkaline Phosphatase 164 H Troponin T C-Reactive Protein Total Protein 4.7 L Albumin 1.4 L HDL Cholesterol Miscellaneous Test Crossmatch See Detail
[2017-08-21] MEDS: MERREM 1,000 MG in NACL 0.9% 100 ML IV SCH (14:44)
--- NOTE | 2017-08-21 16:47 | Progress Note ---
Assessment and Plan - Patient Problems (1) SBO (small bowel obstruction) Current Visit: Yes Status: Acute Plan to address problem: 62 y.o. F s/p ex-lap, lysis of adhesions, G tube placement, MERVIN drain placement: POD 4 gastric perforation: poor overall nutritional status making the defect difficult to re-seal despite intra-luminal decompression and external drainage. Mervin becoming more light brown/serous and less bilious- more likely small perforation is healing. Once MERVIN drainage is less and in about 5 more days, may attempt another methylene blue test. Prolonged healing anticipated due to poor nutrition. -continue PPI -merrom, diflucan and vanco -TPN for nutrition Resp: continues to require vent. cpap trail today. f/u abg. sepsis: likely due intra-abdominal process, hypotension requiring pressor support. ID following. f/u rpt cultures continue abx, and abdominal drainage. wean pressors as tolerated. renal failure: HD per renal. will defer to renal for dialysis and fluid/ electrolyte management. Sacral wound and RLE wound: wound care following. GI proph: PPI DVT proph: rec restarting heparin subq Subjective Narrative: No acute events overnight. Pt responds to pain No fever or night. continues to require levo at 20 (as of 5am) Vent: AC G tube = 250cc thick bile Ncc bile MERVIN: 175cc brown serous Ivan: minimal Objective Vital Signs - 12hr 08/21/17 08/21/17 08/21/17 04:45 05:00 05:15 Temperature Pulse Rate 96 H 97 H 97 H Respiratory 20 19 19 Rate Blood Pressure 106/70 106/70 122/68 O2 Sat by Pulse 100 99 Oximetry 08/21/17 08/21/17 08/21/17 05:30 05:45 06:00 Temperature Pulse Rate 98 H 97 H 98 H Respiratory 20 20 19 Rate Blood Pressure 122/69 124/70 128/70 O2 Sat by Pulse 99 100 99 Oximetry 08/21/17 08/21/17 08/21/17 06:15 06:30 06:45 Temperature Pulse Rate 99 H 98 H 97 H Respiratory 23 21 20 Rate Blood Pressure 115/76 114/70 114/62 O2 Sat by Pulse 98 99 98 Oximetry 08/21/17 08/21/17 08/21/17 07:00 07:16 07:30 Temperature Pulse Rate 99 H 98 H 97 H Respiratory 16 22 20 Rate Blood Pressure 119/69 129/73 129/73 O2 Sat by Pulse 99 99 100 Oximetry 08/21/17 08/21/17 08/21/17 07:45 08:00 08:15 Temperature 97.8 F Pulse Rate 96 H 95 H 96 H Respiratory 21 20 26 H Rate Blood Pressure 118/79 104/62 126/69 O2 Sat by Pulse 100 99 Oximetry 08/21/17 08/21/17 08/21/17 08:30 08:45 09:00 Temperature Pulse Rate 95 H 94 H 94 H Respiratory 20 20 24 Rate Blood Pressure 107/63 93/62 93/62 O2 Sat by Pulse 100 100 97 Oximetry 08/21/17 08/21/17 08/21/17 09:16 09:30 09:45 Temperature Pulse Rate 99 H 101 H 100 H Respiratory 22 17 24 Rate Blood Pressure 93/62 93/62 103/70 O2 Sat by Pulse 99 100 100 Oximetry 08/21/17 08/21/17 08/21/17 10:00 10:15 10:30 Temperature Pulse Rate 98 H 97 H 96 H Respiratory 30 H 29 H 26 H Rate Blood Pressure 103/70 110/72 116/66 O2 Sat by Pulse 100 98 100 Oximetry 08/21/17 08/21/17 08/21/17 10:45 11:00 11:15 Temperature Pulse Rate 96 H 98 H 96 H Respiratory 27 H 29 H 23 Rate Blood Pressure 126/69 126/73 109/72 O2 Sat by Pulse 100 99 99 Oximetry 08/21/17 08/21/17 08/21/17 11:30 11:45 12:00 Temperature 98.9 F Pulse Rate 96 H 98 H 96 H Respiratory 26 H 21 29 H Rate Blood Pressure 109/72 107/64 112/71 O2 Sat by Pulse 100 100 100 Oximetry 08/21/17 08/21/17 08/21/17 12:15 12:30 12:45 Temperature Pulse Rate 96 H 98 H 96 H Respiratory 20 16 21 Rate Blood Pressure 116/72 122/76 118/75 O2 Sat by Pulse 100 99 98 Oximetry 08/21/17 08/21/17 08/21/17 13:00 13:16 13:30 Temperature Pulse Rate 99 H 97 H 95 H Respiratory 21 22 30 H Rate Blood Pressure 128/76 108/65 112/65 O2 Sat by Pulse 99 99 99 Oximetry 08/21/17 08/21/17 08/21/17 13:45 14:00 14:15 Temperature Pulse Rate 94 H 93 H 93 H Respiratory 31 H 26 H 26 H Rate Blood Pressure 111/66 112/63 117/66 O2 Sat by Pulse 98 100 Oximetry - General physical appearance well developed, obese, other (grimace with movement, responds to pain) - Eyes PERRL - Neck no masses - Respiratory normal expansion, normal respiratory effort - Abdomen soft, other (obese, grimace with palpation, no rebound no guarding. +BS MERVIN RUQ, G tube to gravity. packing removed from previous PD cath site: clean. no drainge repacked with wet to dry. midline incision: kelli in place no drainage. tender) - Genitourinary other (+ivan ) - Neurologic other (responds to pain, does not follow commands. more responsive compared to yesterday) - Labs 08/21/17 06:50 08/21/17 06:50 Diabetes panel 08/21/17 Range/Units 06:50 Sodium 135 L (137-145) mmol/L Potassium 4.6 (3.6-5.0) mmol/L Chloride 100.2 (98-107) mmol/L Carbon Dioxide 22 (22-30) mmol/L BUN 39 H (7-17) mg/dL Creatinine 4.4 H (0.7-1.2) mg/dL Glucose 147 H (65-100) mg/dL Calcium 8.1 L (8.4-10.2) mg/dL AST 17 (5-40) units/L ALT < 5 L (7-56) units/L Alkaline Phosphatase 164 H (35-129) units/L Total Protein 4.7 L (6.3-8.2) g/dL Albumin 1.4 L (3.9-5) g/dL Calcium panel 08/21/17 Range/Units 06:50 Calcium 8.1 L (8.4-10.2) mg/dL Phosphorus 2.90 D (2.5-4.5) mg/dL Albumin 1.4 L (3.9-5) g/dL Pituitary panel 08/21/17 Range/Units 06:50 Sodium 135 L (137-145) mmol/L Potassium 4.6 (3.6-5.0) mmol/L Chloride 100.2 (98-107) mmol/L Carbon Dioxide 22 (22-30) mmol/L BUN 39 H (7-17) mg/dL Creatinine 4.4 H (0.7-1.2) mg/dL Glucose 147 H (65-100) mg/dL Calcium 8.1 L (8.4-10.2) mg/dL Adrenal panel 08/21/17 Range/Units 06:50 Sodium 135 L (137-145) mmol/L Potassium 4.6 (3.6-5.0) mmol/L Chloride 100.2 (98-107) mmol/L Carbon Dioxide 22 (22-30) mmol/L BUN 39 H (7-17) mg/dL Creatinine 4.4 H (0.7-1.2) mg/dL Glucose 147 H (65-100) mg/dL Calcium 8.1 L (8.4-10.2) mg/dL Total Bilirubin 0.40 (0.1-1.2) mg/dL AST 17 (5-40) units/L ALT < 5 L (7-56) units/L Alkaline Phosphatase 164 H (35-129) units/L Total Protein 4.7 L (6.3-8.2) g/dL Albumin 1.4 L (3.9-5) g/dL
[2017-08-21] MEDS ORDERED: TPN ADULT 1,800 ML IV SCH (20:00)
--- NOTE | 2017-08-21 23:53 | Progress Note ---
Assessment and Plan - Patient Problems (1) Leukocytosis Current Visit: Yes Status: Acute Qualifiers: Leukocytosis type: L Plan to address problem: See notes above. make sure that PD access is clean also. see notes. Probably infection from the infected PD catheter. (2) Anemia Current Visit: Yes Status: Acute Qualifiers: Anemia type: A Iron deficiency anemia type: I Vitamin B12 deficiency anemia type: V Folate deficiency anemia type: F Bone marrow failure anemia type: B Hemolytic anemia type: H Other causes of anemia: O Chronic kidney disease stage: C Plan to address problem: see notes , monitor labs,. see notes above. continue to monitor labs with you. Subjective Date of service: 08/21/17 Principal diagnosis: /anemia, poor oral intake. Interval history: Patient seen today/examined, labs reviewed, case d/w she, and family.complaints of abdominal pain. Patient resting in bed in the ICU, post vascular procedure. labs reviewed, Reactive thrombocytosis, anemia of CD, leukocytosis from infection vs inflamatory process. Patient seen/examined, in bed in the ICU, on the vent post surgery.Labs reviewed , notes reviewed. will continue to monitor labs/patient with you. Replacement transfusion, if /when indicated. patient seen/examined, SBP75, on pressors., lethargic, on the vent, labs reviewed, wbc 39,000 Patient seen/examined, case reviewed, d/w her sister at the bed side. Patient seen/examined, labs reviewed, notes reviewed. severe septic shock from infected PD catheter The high wbc is all infection related. H?H low, and may get replacement transfusion with the next HD. Prognosis remain quite poor. Patient seen/examined, extubated, now on V Mask. labe reviewed. Objective - Constitutional Vitals: Vital Signs - 12hr 08/21/17 08/21/17 08/21/17 12:00 12:15 12:30 Temperature 98.9 F Pulse Rate 96 H 96 H 98 H Pulse Rate [ Apical] Respiratory 29 H 20 16 Rate Blood Pressure 112/71 116/72 122/76 O2 Sat by Pulse 100 100 99 Oximetry O2 Sat by Pulse Oximetry [ Bilateral Throughout] 08/21/17 08/21/17 08/21/17 12:45 13:00 13:16 Temperature Pulse Rate 96 H 99 H 97 H Pulse Rate [ Apical] Respiratory 21 21 22 Rate Blood Pressure 118/75 128/76 108/65 O2 Sat by Pulse 98 99 99 Oximetry O2 Sat by Pulse Oximetry [ Bilateral Throughout] 08/21/17 08/21/17 08/21/17 13:30 13:45 14:00 Temperature Pulse Rate 95 H 94 H 93 H Pulse Rate [ Apical] Respiratory 30 H 31 H 26 H Rate Blood Pressure 112/65 111/66 112/63 O2 Sat by Pulse 99 98 Oximetry O2 Sat by Pulse Oximetry [ Bilateral Throughout] 08/21/17 08/21/17 08/21/17 14:15 14:30 14:45 Temperature Pulse Rate 93 H 93 H 94 H Pulse Rate [ Apical] Respiratory 26 H 27 H 29 H Rate Blood Pressure 117/66 113/66 107/68 O2 Sat by Pulse 100 100 Oximetry O2 Sat by Pulse Oximetry [ Bilateral Throughout] 08/21/17 08/21/17 08/21/17 15:00 15:15 15:30 Temperature Pulse Rate 94 H 93 H 93 H Pulse Rate [ Apical] Respiratory 31 H 28 H 31 H Rate Blood Pressure 116/70 114/66 113/69 O2 Sat by Pulse 100 100 100 Oximetry O2 Sat by Pulse Oximetry [ Bilateral Throughout] 08/21/17 08/21/17 08/21/17 15:45 16:00 16:15 Temperature 98.3 F Pulse Rate 92 H 93 H 94 H Pulse Rate [ Apical] Respiratory 25 H 29 H 16 Rate Blood Pressure 105/65 107/66 108/61 O2 Sat by Pulse 100 76 L Oximetry O2 Sat by Pulse Oximetry [ Bilateral Throughout] 08/21/17 08/21/17 08/21/17 16:30 16:45 17:00 Temperature Pulse Rate 99 H 95 H 95 H Pulse Rate [ Apical] Respiratory 34 H 29 H 24 Rate Blood Pressure 106/75 99/63 107/66 O2 Sat by Pulse 91 100 92 Oximetry O2 Sat by Pulse Oximetry [ Bilateral Throughout] 08/21/17 08/21/17 08/21/17 17:16 17:30 17:45 Temperature Pulse Rate 94 H 94 H 93 H Pulse Rate [ Apical] Respiratory 30 H 22 24 Rate Blood Pressure 112/60 89/59 90/62 O2 Sat by Pulse 100 100 100 Oximetry O2 Sat by Pulse Oximetry [ Bilateral Throughout] 08/21/17 08/21/17 08/21/17 18:00 18:16 18:30 Temperature 98.3 F Pulse Rate 96 H 95 H 96 H Pulse Rate [ Apical] Respiratory 28 H 26 H 27 H Rate Blood Pressure 90/62 107/72 100/71 O2 Sat by Pulse 100 89 98 Oximetry O2 Sat by Pulse 99 Oximetry [ Bilateral Throughout] 08/21/17 08/21/17 08/21/17 18:45 19:00 19:10 Temperature Pulse Rate 95 H 97 H Pulse Rate [ Apical] Respiratory 25 H 20 Rate Blood Pressure 107/53 116/71 115/82 O2 Sat by Pulse 98 99 Oximetry O2 Sat by Pulse Oximetry [ Bilateral Throughout] 08/21/17 08/21/17 08/21/17 19:15 19:16 19:30 Temperature Pulse Rate 102 H 98 H 98 H Pulse Rate [ Apical] Respiratory 23 28 H Rate Blood Pressure 97/43 115/82 103/74 O2 Sat by Pulse 100 Oximetry O2 Sat by Pulse Oximetry [ Bilateral Throughout] 08/21/17 08/21/17 08/21/17 19:45 19:46 20:00 Temperature 98.6 F Pulse Rate 96 H 102 H 105 H Pulse Rate [ 95 H Apical] Respiratory 31 H 28 H Rate Blood Pressure 105/87 97/43 113/89 O2 Sat by Pulse 100 100 Oximetry O2 Sat by Pulse Oximetry [ Bilateral Throughout] 08/21/17 08/21/17 08/21/17 20:07 20:15 20:16 Temperature 98.3 F Pulse Rate 105 H 104 H 105 H Pulse Rate [ Apical] Respiratory 27 H 27 H Rate Blood Pressure 113/89 112/77 112/77 O2 Sat by Pulse 99 97 Oximetry O2 Sat by Pulse Oximetry [ Bilateral Throughout] 08/21/17 08/21/17 08/21/17 20:22 20:30 20:37 Temperature 98.6 F 98.6 F Pulse Rate 104 H 106 H 104 H Pulse Rate [ Apical] Respiratory 27 H 24 27 H Rate Blood Pressure 112/77 135/98 135/98 O2 Sat by Pulse 99 99 Oximetry O2 Sat by Pulse Oximetry [ Bilateral Throughout] 08/21/17 08/21/17 08/21/17 20:45 21:00 21:15 Temperature Pulse Rate 107 H 111 H 100 H Pulse Rate [ Apical] Respiratory 27 H 31 H Rate Blood Pressure 81/54 117/84 125/106 O2 Sat by Pulse 65 L 90 Oximetry O2 Sat by Pulse Oximetry [ Bilateral Throughout] 08/21/17 08/21/17 08/21/17 21:16 21:30 21:45 Temperature Pulse Rate 111 H 111 H 115 H Pulse Rate [ Apical] Respiratory 31 H 28 H Rate Blood Pressure 125/106 213/170 140/105 O2 Sat by Pulse 92 Oximetry O2 Sat by Pulse Oximetry [ Bilateral Throughout] 08/21/17 08/21/17 22:15 23:37 Temperature 98.6 F Pulse Rate 108 H Pulse Rate [ Apical] Respiratory 24 Rate Blood Pressure 104/34 O2 Sat by Pulse 100 Oximetry O2 Sat by Pulse 100 Oximetry [ Bilateral Throughout] General appearance: Present: severe distress, well-nourished - EENT Eyes: PERRL, EOM intact ENT: hearing intact, clear oral mucosa Ears: bilateral: normal - Neck Neck: supple, normal ROM - Respiratory Respiratory effort: labored - Breasts Breasts: deferred - Cardiovascular Rhythm: regular Heart Sounds: Present: S1 & S2. Absent: gallop, rub Extremities: pulses intact, No edema, normal color, Full ROM - Gastrointestinal General gastrointestinal: Present: soft, non-tender, non-distended, normal bowel sounds - Genitourinary Female genitourinary: deferred - Integumentary Integumentary: clear, warm, dry - Labs CBC & Chem 7: 08/21/17 06:50 08/21/17 06:50 Labs: Abnormal lab results 08/20/17 08/21/17 08/21/17 Range/Units 17:13 00:47 03:14 WBC (4.5-11.0) K/mm3 RBC (3.65-5.03) M/mm3 Hgb (10.1-14.3) gm/dl Hct (30.3-42.9) % RDW (13.2-15.2) % Seg Neuts % (Manual) (40.0-70.0) % Lymphocytes % (Manual) (13.4-35.0) % Nucleated RBC % (0.0-0.9) % Seg Neutrophils # Man (1.8-7.7) K/mm3 Lymphocytes # (Manual) (1.2-5.4) K/mm3 Monocytes # (Manual) (0.0-0.8) K/mm3 POC ABG pH 7.481 H (7.35-7.45) POC ABG pCO2 29.6 L (35-45) Sodium (137-145) mmol/L BUN (7-17) mg/dL Creatinine (0.7-1.2) mg/dL Glucose (65-100) mg/dL POC Glucose 188 H 109 H (70-105) Calcium (8.4-10.2) mg/dL ALT (7-56) units/L Alkaline Phosphatase (35-129) units/L Total Protein (6.3-8.2) g/dL Albumin (3.9-5) g/dL Crossmatch 08/21/17 08/21/17 08/21/17 Range/Units 05:05 06:50 06:50 WBC 44.7 H* (4.5-11.0) K/mm3 RBC 2.41 L (3.65-5.03) M/mm3 Hgb 7.1 L (10.1-14.3) gm/dl Hct 22.1 L (30.3-42.9) % RDW 18.3 H (13.2-15.2) % Seg Neuts % (Manual) 89.0 H (40.0-70.0) % Lymphocytes % (Manual) 0 L (13.4-35.0) % Nucleated RBC % 1.0 H (0.0-0.9) % Seg Neutrophils # Man 39.8 H (1.8-7.7) K/mm3 Lymphocytes # (Manual) 0.0 L (1.2-5.4) K/mm3 Monocytes # (Manual) 1.3 H (0.0-0.8) K/mm3 POC ABG pH (7.35-7.45) POC ABG pCO2 (35-45) Sodium 135 L (137-145) mmol/L BUN 39 H (7-17) mg/dL Creatinine 4.4 H (0.7-1.2) mg/dL Glucose 147 H (65-100) mg/dL POC Glucose 166 H (70-105) Calcium 8.1 L (8.4-10.2) mg/dL ALT < 5 L (7-56) units/L Alkaline Phosphatase 164 H (35-129) units/L Total Protein 4.7 L (6.3-8.2) g/dL Albumin 1.4 L (3.9-5) g/dL Crossmatch 08/21/17 08/21/17 08/21/17 Range/Units 08:00 12:21 17:02 WBC (4.5-11.0) K/mm3 RBC (3.65-5.03) M/mm3 Hgb (10.1-14.3) gm/dl Hct (30.3-42.9) % RDW (13.2-15.2) % Seg Neuts % (Manual) (40.0-70.0) % Lymphocytes % (Manual) (13.4-35.0) % Nucleated RBC % (0.0-0.9) % Seg Neutrophils # Man (1.8-7.7) K/mm3 Lymphocytes # (Manual) (1.2-5.4) K/mm3 Monocytes # (Manual) (0.0-0.8) K/mm3 POC ABG pH (7.35-7.45) POC ABG pCO2 (35-45) Sodium (137-145) mmol/L BUN (7-17) mg/dL Creatinine (0.7-1.2) mg/dL Glucose (65-100) mg/dL POC Glucose 147 H 135 H (70-105) Calcium (8.4-10.2) mg/dL ALT (7-56) units/L Alkaline Phosphatase (35-129) units/L Total Protein (6.3-8.2) g/dL Albumin (3.9-5) g/dL Crossmatch See Detail 08/21/17 Range/Units 23:38 WBC (4.5-11.0) K/mm3 RBC (3.65-5.03) M/mm3 Hgb (10.1-14.3) gm/dl Hct (30.3-42.9) % RDW (13.2-15.2) % Seg Neuts % (Manual) (40.0-70.0) % Lymphocytes % (Manual) (13.4-35.0) % Nucleated RBC % (0.0-0.9) % Seg Neutrophils # Man (1.8-7.7) K/mm3 Lymphocytes # (Manual) (1.2-5.4) K/mm3 Monocytes # (Manual) (0.0-0.8) K/mm3 POC ABG pH (7.35-7.45) POC ABG pCO2 (35-45) Sodium (137-145) mmol/L BUN (7-17) mg/dL Creatinine (0.7-1.2) mg/dL Glucose (65-100) mg/dL POC Glucose 251 H (70-105) Calcium (8.4-10.2) mg/dL ALT (7-56) units/L Alkaline Phosphatase (35-129) units/L Total Protein (6.3-8.2) g/dL Albumin (3.9-5) g/dL Crossmatch
[2017-08-22] MEDS: LEVOPHED 8 MG in NACL 0.9% 250ML 242 ML IV SCH ×3 (00:47→16:29)
[2017-08-22 04:06] LABS: Hematocrit 26.3 % (30.3-42.9); Hemoglobin 8.5 gm/dl (10.1-14.3); Mean Corpuscular HGB Conc 32 % (30-34); Mean Corpuscular Hemoglobin 30 pg (28-32); Mean Corpuscular Volume 91 fl (79-97); Platelet Count 245 K/mm3 (140-440); Red Blood Count 2.88 M/mm3 (3.65-5.03); Red Cell Distribution Width 17.9 % (13.2-15.2)
[2017-08-22 04:15] LABS: BUN/Creatinine Ratio 9.31; Chloride 102.8 mmol/L (98-107); Phosphorous 2.4 mg/dL (2.5-4.5); Potassium 3.3 mmol/L (3.6-5.0)
[2017-08-22 04:24] LABS: White Blood Count 42.5 K/mm3 (4.5-11.0)
[2017-08-22] MEDS: MORPHINE IV PRN ×2 (05:44→09:07)
[2017-08-22 06:23] LABS: Anisocytosis 1+; Blastocytes % (Manual) 0 %; Hypochromasia 1+; Ovalocytes Few; Polychromasia Few; Target Cells 1+
[2017-08-22 06:24] LABS: Diff Status Complete; Smudge Cells Rare
--- NOTE | 2017-08-22 07:42 | Progress Note ---
Assessment and Plan - Patient Problems (1) ESRD (end stage renal disease) on dialysis Current Visit: Yes Status: Acute Plan to address problem: Patient was switched from PD to hemodialysis. Continue HD, MWF schedule. Patient is on TPN. (2) Hyperkalemia Current Visit: Yes Status: Acute Plan to address problem: Improved with hemodialysis. (3) Anemia Current Visit: No Status: Chronic Qualifiers: Anemia type: due to chronic kidney disease Iron deficiency anemia type: I Vitamin B12 deficiency anemia type: V Folate deficiency anemia type: F Bone marrow failure anemia type: B Hemolytic anemia type: H Other causes of anemia: O Chronic kidney disease stage: on chronic dialysis Qualified Code(s ): N18.6 - End stage renal disease; D63.1 - Anemia in chronic kidney disease; Z99.2 - Dependence on renal dialysis Plan to address problem: Epogen. (4) Hypotension Current Visit: Yes Status: Chronic Qualifiers: Hypotension type: H Trimester: T Plan to address problem: On IV levophed and Vasopressin. (5) Leukocytosis Current Visit: Yes Status: Acute Qualifiers: Leukocytosis type: unspecified Qualified Code(s): D72.829 - Elevated white blood cell count, unspecified Plan to address problem: Followed by ID and Heme-Onc. Suspected peritonitis. S/p removal of PD catheter. (6) Acute respiratory failure with hypoxemia Current Visit: Yes Status: Acute (7) Sepsis Current Visit: Yes Status: Acute Qualifiers: Sepsis type: S Subjective Date of service: 08/22/17 Principal diagnosis: /anemia, poor oral intake. Interval history: Patient was seen and examined at the bedside. Objective - Vital Signs Vital signs: Vital Signs - 12hr 08/21/17 08/21/17 08/21/17 19:45 19:46 20:00 Temperature 98.6 F Pulse Rate 96 H 102 H 105 H Pulse Rate [ 95 H Apical] Respiratory 31 H 28 H Rate Blood Pressure 105/87 97/43 113/89 O2 Sat by Pulse 100 100 Oximetry O2 Sat by Pulse Oximetry [ Bilateral Throughout] 08/21/17 08/21/17 08/21/17 20:07 20:15 20:16 Temperature 98.3 F Pulse Rate 105 H 104 H 105 H Pulse Rate [ Apical] Respiratory 27 H 27 H Rate Blood Pressure 113/89 112/77 112/77 O2 Sat by Pulse 99 97 Oximetry O2 Sat by Pulse Oximetry [ Bilateral Throughout] 08/21/17 08/21/17 08/21/17 20:22 20:30 20:37 Temperature 98.6 F 98.6 F Pulse Rate 104 H 106 H 104 H Pulse Rate [ Apical] Respiratory 27 H 24 27 H Rate Blood Pressure 112/77 135/98 135/98 O2 Sat by Pulse 99 99 Oximetry O2 Sat by Pulse Oximetry [ Bilateral Throughout] 08/21/17 08/21/17 08/21/17 20:45 21:00 21:15 Temperature Pulse Rate 107 H 111 H 100 H Pulse Rate [ Apical] Respiratory 27 H 31 H Rate Blood Pressure 81/54 117/84 125/106 O2 Sat by Pulse 65 L 90 Oximetry O2 Sat by Pulse Oximetry [ Bilateral Throughout] 08/21/17 08/21/17 08/21/17 21:16 21:30 21:34 Temperature Pulse Rate 111 H 111 H 114 H Pulse Rate [ Apical] Respiratory 31 H 28 H 29 H Rate Blood Pressure 125/106 213/170 158/134 O2 Sat by Pulse 92 Oximetry O2 Sat by Pulse Oximetry [ Bilateral Throughout] 08/21/17 08/21/17 08/21/17 21:45 21:46 22:00 Temperature Pulse Rate 115 H 119 H 110 H Pulse Rate [ Apical] Respiratory 31 H 35 H Rate Blood Pressure 140/105 139/116 140/105 O2 Sat by Pulse 80 L Oximetry O2 Sat by Pulse Oximetry [ Bilateral Throughout] 08/21/17 08/21/17 08/21/17 22:15 22:16 22:30 Temperature 98.6 F Pulse Rate 108 H 110 H 108 H Pulse Rate [ Apical] Respiratory 24 32 H 28 H Rate Blood Pressure 104/34 150/131 95/50 O2 Sat by Pulse 92 Oximetry O2 Sat by Pulse 100 Oximetry [ Bilateral Throughout] 08/21/17 08/21/17 08/21/17 22:46 23:00 23:16 Temperature Pulse Rate 105 H 105 H 104 H Pulse Rate [ Apical] Respiratory 31 H 25 H 33 H Rate Blood Pressure 98/51 88/51 98/51 O2 Sat by Pulse 100 99 100 Oximetry O2 Sat by Pulse Oximetry [ Bilateral Throughout] 08/21/17 08/21/17 08/21/17 23:30 23:37 23:46 Temperature Pulse Rate 104 H 105 H Pulse Rate [ Apical] Respiratory 28 H 28 H Rate Blood Pressure 102/60 102/60 O2 Sat by Pulse 100 100 100 Oximetry O2 Sat by Pulse Oximetry [ Bilateral Throughout] 08/22/17 08/22/17 08/22/17 00:00 00:16 00:30 Temperature 98.3 F Pulse Rate 109 H 105 H 105 H Pulse Rate [ Apical] Respiratory 30 H 29 H 28 H Rate Blood Pressure 105/64 102/60 113/71 O2 Sat by Pulse 99 100 100 Oximetry O2 Sat by Pulse Oximetry [ Bilateral Throughout] 08/22/17 08/22/17 08/22/17 00:46 01:00 01:16 Temperature Pulse Rate 104 H 103 H 103 H Pulse Rate [ Apical] Respiratory 28 H 27 H 27 H Rate Blood Pressure 104/62 96/66 98/65 O2 Sat by Pulse 100 100 100 Oximetry O2 Sat by Pulse Oximetry [ Bilateral Throughout] 08/22/17 08/22/17 08/22/17 01:30 01:46 02:00 Temperature Pulse Rate 105 H 103 H 102 H Pulse Rate [ Apical] Respiratory 30 H 29 H 29 H Rate Blood Pressure 91/70 96/72 113/65 O2 Sat by Pulse 99 100 100 Oximetry O2 Sat by Pulse Oximetry [ Bilateral Throughout] 08/22/17 08/22/17 08/22/17 02:16 02:30 02:46 Temperature Pulse Rate 100 H 101 H 103 H Pulse Rate [ Apical] Respiratory 30 H 27 H 27 H Rate Blood Pressure 118/69 113/73 105/78 O2 Sat by Pulse 100 100 100 Oximetry O2 Sat by Pulse Oximetry [ Bilateral Throughout] 08/22/17 08/22/17 08/22/17 03:00 03:16 03:30 Temperature Pulse Rate 102 H 102 H 100 H Pulse Rate [ Apical] Respiratory 30 H 29 H 26 H Rate Blood Pressure 118/72 116/74 115/75 O2 Sat by Pulse 100 100 100 Oximetry O2 Sat by Pulse Oximetry [ Bilateral Throughout] 08/22/17 08/22/17 08/22/17 03:46 04:00 04:16 Temperature 98.3 F Pulse Rate 102 H 102 H 102 H Pulse Rate [ Apical] Respiratory 28 H 28 H 30 H Rate Blood Pressure 112/71 113/72 101/77 O2 Sat by Pulse 100 99 100 Oximetry O2 Sat by Pulse Oximetry [ Bilateral Throughout] 08/22/17 08/22/17 08/22/17 04:30 04:46 05:00 Temperature Pulse Rate 103 H 101 H 103 H Pulse Rate [ Apical] Respiratory 30 H 29 H 30 H Rate Blood Pressure 125/76 127/73 120/74 O2 Sat by Pulse 100 100 99 Oximetry O2 Sat by Pulse Oximetry [ Bilateral Throughout] 08/22/17 08/22/17 08/22/17 05:16 05:30 05:46 Temperature Pulse Rate 100 H 102 H 103 H Pulse Rate [ Apical] Respiratory 30 H 31 H 30 H Rate Blood Pressure 121/75 118/70 114/76 O2 Sat by Pulse 100 100 95 Oximetry O2 Sat by Pulse Oximetry [ Bilateral Throughout] 08/22/17 08/22/17 08/22/17 06:00 06:16 06:30 Temperature Pulse Rate 103 H 103 H 99 H Pulse Rate [ Apical] Respiratory 30 H 28 H 28 H Rate Blood Pressure 114/76 207/188 101/60 O2 Sat by Pulse 100 Oximetry O2 Sat by Pulse Oximetry [ Bilateral Throughout] 08/22/17 06:46 Temperature Pulse Rate 99 H Pulse Rate [ Apical] Respiratory 28 H Rate Blood Pressure 105/84 O2 Sat by Pulse 84 Oximetry O2 Sat by Pulse Oximetry [ Bilateral Throughout] - General Appearance General appearance: well-developed, appears stated age, obese, other (no obvious distress, right groin dialysis catheter) EENT: ATNC, hearing intact Neck: supple Respiratory: Present: Clear to Ascultation Cardiology: regular, S1S2, no murmurs Gastrointestinal: normoactive bowel sounds, tenderness, obese, other (PEG tube noted) Integumentary: no rash Neurologic: other (right LE weakness noted, non-verbal) Musculoskeletal: other (1+ edema of both LEs noted) Psychiatric: cooperative - Lab 08/22/17 03:40 08/22/17 03:40 Most recent lab results Calcium 8.0 mg/dL (8.4-10.2) L 08/22/17 03:40 Phosphorus 2.40 mg/dL (2.5-4.5) L 08/22/17 03:40 Magnesium 2.00 mg/dL (1.7-2.3) 08/22/17 03:40
--- NOTE | 2017-08-22 08:46 | Progress Note ---
Assessment and Plan 62 y/o female originally admitted with hypotension, now back to ICU secondary to worsening hypotension, concern for sepsis, with acute respiratory failure post-op from ex-lap for abdominal distention and possible ileus. 1. Pain control for dressing changes. 2. Wean Venti-mask as tolerated. 3. Follow up any new ID recs 4. Mental status, to me is worse today, will watch closely. So far able to protect her airway. Overall prognosis is guarded CCT [id number] Subjective Date of service: 08/22/17 Principal diagnosis: /anemia, poor oral intake. Interval history: Successful extubation on yesterday. Remains on Venti. Stable. Had HD yesterday and was transfused one unit of PRBC's. Objective Vital Signs - 12hr 08/21/17 08/21/17 08/21/17 20:45 21:00 21:15 Temperature Pulse Rate 107 H 111 H 100 H Respiratory 27 H 31 H Rate Blood Pressure 81/54 117/84 125/106 O2 Sat by Pulse 65 L 90 Oximetry O2 Sat by Pulse Oximetry [ Bilateral Throughout] 08/21/17 08/21/17 08/21/17 21:16 21:30 21:34 Temperature Pulse Rate 111 H 111 H 114 H Respiratory 31 H 28 H 29 H Rate Blood Pressure 125/106 213/170 158/134 O2 Sat by Pulse 92 Oximetry O2 Sat by Pulse Oximetry [ Bilateral Throughout] 08/21/17 08/21/17 08/21/17 21:45 21:46 22:00 Temperature Pulse Rate 115 H 119 H 110 H Respiratory 31 H 35 H Rate Blood Pressure 140/105 139/116 140/105 O2 Sat by Pulse 80 L Oximetry O2 Sat by Pulse Oximetry [ Bilateral Throughout] 08/21/17 08/21/17 08/21/17 22:15 22:16 22:30 Temperature 98.6 F Pulse Rate 108 H 110 H 108 H Respiratory 24 32 H 28 H Rate Blood Pressure 104/34 150/131 95/50 O2 Sat by Pulse 92 Oximetry O2 Sat by Pulse 100 Oximetry [ Bilateral Throughout] 08/21/17 08/21/17 08/21/17 22:46 23:00 23:16 Temperature Pulse Rate 105 H 105 H 104 H Respiratory 31 H 25 H 33 H Rate Blood Pressure 98/51 88/51 98/51 O2 Sat by Pulse 100 99 100 Oximetry O2 Sat by Pulse Oximetry [ Bilateral Throughout] 08/21/17 08/21/17 08/21/17 23:30 23:37 23:46 Temperature Pulse Rate 104 H 105 H Respiratory 28 H 28 H Rate Blood Pressure 102/60 102/60 O2 Sat by Pulse 100 100 100 Oximetry O2 Sat by Pulse Oximetry [ Bilateral Throughout] 08/22/17 08/22/17 08/22/17 00:00 00:16 00:30 Temperature 98.3 F Pulse Rate 109 H 105 H 105 H Respiratory 30 H 29 H 28 H Rate Blood Pressure 105/64 102/60 113/71 O2 Sat by Pulse 99 100 100 Oximetry O2 Sat by Pulse Oximetry [ Bilateral Throughout] 08/22/17 08/22/17 08/22/17 00:46 01:00 01:16 Temperature Pulse Rate 104 H 103 H 103 H Respiratory 28 H 27 H 27 H Rate Blood Pressure 104/62 96/66 98/65 O2 Sat by Pulse 100 100 100 Oximetry O2 Sat by Pulse Oximetry [ Bilateral Throughout] 08/22/17 08/22/17 08/22/17 01:30 01:46 02:00 Temperature Pulse Rate 105 H 103 H 102 H Respiratory 30 H 29 H 29 H Rate Blood Pressure 91/70 96/72 113/65 O2 Sat by Pulse 99 100 100 Oximetry O2 Sat by Pulse Oximetry [ Bilateral Throughout] 08/22/17 08/22/17 08/22/17 02:16 02:30 02:46 Temperature Pulse Rate 100 H 101 H 103 H Respiratory 30 H 27 H 27 H Rate Blood Pressure 118/69 113/73 105/78 O2 Sat by Pulse 100 100 100 Oximetry O2 Sat by Pulse Oximetry [ Bilateral Throughout] 08/22/17 08/22/17 08/22/17 03:00 03:16 03:30 Temperature Pulse Rate 102 H 102 H 100 H Respiratory 30 H 29 H 26 H Rate Blood Pressure 118/72 116/74 115/75 O2 Sat by Pulse 100 100 100 Oximetry O2 Sat by Pulse Oximetry [ Bilateral Throughout] 08/22/17 08/22/17 08/22/17 03:46 04:00 04:16 Temperature 98.3 F Pulse Rate 102 H 102 H 102 H Respiratory 28 H 28 H 30 H Rate Blood Pressure 112/71 113/72 101/77 O2 Sat by Pulse 100 99 100 Oximetry O2 Sat by Pulse Oximetry [ Bilateral Throughout] 08/22/17 08/22/17 08/22/17 04:30 04:46 05:00 Temperature Pulse Rate 103 H 101 H 103 H Respiratory 30 H 29 H 30 H Rate Blood Pressure 125/76 127/73 120/74 O2 Sat by Pulse 100 100 99 Oximetry O2 Sat by Pulse Oximetry [ Bilateral Throughout] 08/22/17 08/22/17 08/22/17 05:16 05:30 05:46 Temperature Pulse Rate 100 H 102 H 103 H Respiratory 30 H 31 H 30 H Rate Blood Pressure 121/75 118/70 114/76 O2 Sat by Pulse 100 100 95 Oximetry O2 Sat by Pulse Oximetry [ Bilateral Throughout] 08/22/17 08/22/17 08/22/17 06:00 06:16 06:30 Temperature Pulse Rate 103 H 103 H 99 H Respiratory 30 H 28 H 28 H Rate Blood Pressure 114/76 207/188 101/60 O2 Sat by Pulse 100 Oximetry O2 Sat by Pulse Oximetry [ Bilateral Throughout] 08/22/17 08/22/17 08/22/17 06:46 07:53 08:24 Temperature 98.2 F Pulse Rate 99 H Respiratory 28 H Rate Blood Pressure 105/84 O2 Sat by Pulse 84 100 Oximetry O2 Sat by Pulse Oximetry [ Bilateral Throughout] Constitutional: alert, lethargic, appears uncomfortable, other (not answering questions appropriately this am. No family at bedside) Eyes: non-icteric ENT: oropharynx moist, other (NG tube in place in right nare) Neck: supple, no lymphadenopathy, no JVD Effort: mildly labored Ascultation: Bilateral: diminished breath sounds Cardiovascular: regular rate and rhythm Gastrointestinal: absent bowel sounds, tender, other (abdominal incision with dressing noted) Extremities: no cyanosis, no edema, pink and warm Neurologic: other (sedated) CBC and BMP: 08/22/17 03:40 08/22/17 03:40 ABG, PT/INR, D-dimer: ABG POC ABG pH 7.481 (7.35-7.45) H 08/21/17 03:14 POC ABG pCO2 29.6 (35-45) L 08/21/17 03:14 POC ABG pO2 104 (80-105) 08/21/17 03:14 POC ABG HCO3 22.1 08/21/17 03:14 POC ABG Total CO2 23 08/21/17 03:14 POC ABG O2 Sat 98 08/21/17 03:14 PT/INR, D-dimer PT 16.0 Sec. (12.2-14.9) H 08/17/17 11:20 INR 1.29 (0.87-1.13) H 08/17/17 11:20 Abnormal lab findings: Abnormal Labs 08/08/17 08/08/17 08/09/17 21:23 21:31 11:19 WBC 15.7 H RBC 2.93 L Hgb 8.7 L Hct 26.8 L MCV RDW 19.2 H Plt Count Lymph % (Auto) [place] % (Auto) [place] # Seg Neutrophils % Seg Neuts % (Manual) Lymphocytes % (Manual) Monocytes % (Manual) Nucleated RBC % Seg Neutrophils # Seg Neutrophils # Man Lymphocytes # (Manual) Monocytes # (Manual) Eosinophils # (Manual) Basophils # (Manual) PT INR POC ABG pH 7.490 H POC ABG pCO2 POC ABG pO2 122 H Sodium Potassium Chloride Carbon Dioxide BUN Creatinine Glucose POC Glucose Calcium Phosphorus Magnesium AST ALT Alkaline Phosphatase Troponin T 0.133 H* C-Reactive Protein Total Protein Albumin HDL Cholesterol 26 L Miscellaneous Test Crossmatch 08/09/17 08/10/17 08/10/17 13:25 04:45 04:45 WBC 15.5 H RBC 2.97 L Hgb 8.9 L Hct 27.0 L MCV RDW 19.2 H Plt Count Lymph % (Auto) [place] % (Auto) [place] # Seg Neutrophils % Seg Neuts % (Manual) 73.0 H Lymphocytes % (Manual) 7.0 L Monocytes % (Manual) 14.0 H Nucleated RBC % Seg Neutrophils # Seg Neutrophils # Man 11.3 H Lymphocytes # (Manual) 1.1 L Monocytes # (Manual) 2.2 H Eosinophils # (Manual) Basophils # (Manual) 0.2 H PT INR POC ABG pH POC ABG pCO2 POC ABG pO2 Sodium Potassium 3.3 L Chloride 97.3 L Carbon Dioxide 21 L BUN 23 H Creatinine 6.5 H Glucose POC Glucose Calcium 7.3 L Phosphorus Magnesium AST ALT Alkaline Phosphatase 138 H Troponin T 0.132 H* C-Reactive Protein Total Protein 4.8 L Albumin 1.4 L HDL Cholesterol Miscellaneous Test Crossmatch 08/11/17 08/11/17 08/12/17 04:00 04:00 05:50 WBC 19.3 H RBC 3.10 L Hgb 9.5 L Hct 28.2 L MCV RDW 19.2 H Plt Count 463 H Lymph % (Auto) 7.5 L [place] % (Auto) 14.6 H [place] # 2.8 H Seg Neutrophils % 77.0 H Seg Neuts % (Manual) Lymphocytes % (Manual) Monocytes % (Manual) Nucleated RBC % Seg Neutrophils # 14.8 H Seg Neutrophils # Man Lymphocytes # (Manual) Monocytes # (Manual) Eosinophils # (Manual) Basophils # (Manual) PT INR POC ABG pH POC ABG pCO2 POC ABG pO2 Sodium 136 L 136 L Potassium 3.3 L Chloride 96.3 L 96.6 L Carbon Dioxide BUN 26 H 26 H Creatinine 6.4 H 6.2 H Glucose 135 H 133 H POC Glucose Calcium 8.2 L Phosphorus Magnesium 1.30 L AST ALT Alkaline Phosphatase 139 H Troponin T C-Reactive Protein Total Protein 5.5 L Albumin 1.7 L HDL Cholesterol Miscellaneous Test Crossmatch 08/12/17 08/12/17 08/12/17 05:50 05:50 05:50 WBC 20.1 H RBC 3.06 L Hgb 9.3 L Hct 27.9 L MCV RDW 18.4 H Plt Count 471 H Lymph % (Auto) [place] % (Auto) [place] # Seg Neutrophils % Seg Neuts % (Manual) 85.0 H Lymphocytes % (Manual) 8.0 L Monocytes % (Manual) Nucleated RBC % Seg Neutrophils # Seg Neutrophils # Man 17.1 H Lymphocytes # (Manual) Monocytes # (Manual) 1.0 H Eosinophils # (Manual) Basophils # (Manual) PT 15.2 H INR 1.14 H POC ABG pH POC ABG pCO2 POC ABG pO2 Sodium Potassium Chloride Carbon Dioxide BUN Creatinine Glucose POC Glucose Calcium Phosphorus Magnesium AST ALT Alkaline Phosphatase Troponin T C-Reactive Protein 28.90 H Total Protein Albumin HDL Cholesterol Miscellaneous Test Crossmatch 08/12/17 08/13/17 08/13/17 16:23 06:14 06:14 WBC 21.8 H RBC 3.11 L Hgb 9.4 L Hct 28.2 L MCV RDW 18.2 H Plt Count 492 H Lymph % (Auto) [place] % (Auto) [place] # Seg Neutrophils % Seg Neuts % (Manual) 73.0 H Lymphocytes % (Manual) 2.0 L Monocytes % (Manual) 15 H Nucleated RBC % Seg Neutrophils # Seg Neutrophils # Man 15.9 H Lymphocytes # (Manual) 0.4 L Monocytes # (Manual) 2.4 H Eosinophils # (Manual) Basophils # (Manual) PT INR POC ABG pH POC ABG pCO2 POC ABG pO2 Sodium Potassium Chloride 96.2 L Carbon Dioxide BUN 28 H Creatinine 5.6 H Glucose 114 H POC Glucose Calcium Phosphorus Magnesium AST ALT Alkaline Phosphatase Troponin T C-Reactive Protein 26.10 H Total Protein Albumin HDL Cholesterol Miscellaneous Test Crossmatch 08/13/17 08/14/17 08/14/17 16:39 04:00 04:00 WBC 22.1 H RBC 3.25 L Hgb 9.9 L Hct 29.5 L MCV RDW 17.9 H Plt Count 525 H Lymph % (Auto) [place] % (Auto) [place] # Seg Neutrophils % Seg Neuts % (Manual) 74.0 H Lymphocytes % (Manual) 8.0 L Monocytes % (Manual) 12.0 H Nucleated RBC % Seg Neutrophils # Seg Neutrophils # Man 16.4 H Lymphocytes # (Manual) Monocytes # (Manual) 2.7 H Eosinophils # (Manual) Basophils # (Manual) PT INR POC ABG pH POC ABG pCO2 POC ABG pO2 Sodium 134 L Potassium 3.3 L Chloride 93.3 L Carbon Dioxide BUN 27 H Creatinine 6.0 H Glucose 152 H POC Glucose 151 H Calcium Phosphorus Magnesium AST ALT Alkaline Phosphatase Troponin T C-Reactive Protein Total Protein Albumin HDL Cholesterol Miscellaneous Test Crossmatch 08/15/17 08/16/17 08/16/17 09:10 09:50 09:50 WBC 31.1 H RBC 3.21 L Hgb 9.6 L Hct 29.3 L MCV RDW 18.1 H Plt Count 642 H Lymph % (Auto) [place] % (Auto) [place] # Seg Neutrophils % Seg Neuts % (Manual) 74.0 H Lymphocytes % (Manual) 4.0 L Monocytes % (Manual) 9.0 H Nucleated RBC % Seg Neutrophils # Seg Neutrophils # Man 23.0 H Lymphocytes # (Manual) Monocytes # (Manual) 2.8 H Eosinophils # (Manual) Basophils # (Manual) PT INR POC ABG pH POC ABG pCO2 POC ABG pO2 Sodium 136 L 136 L Potassium 3.5 L Chloride 97.6 L 94.9 L Carbon Dioxide BUN 27 H 28 H Creatinine 5.6 H 5.5 H Glucose 117 H 103 H POC Glucose Calcium Phosphorus Magnesium AST ALT Alkaline Phosphatase 137 H Troponin T C-Reactive Protein Total Protein 5.4 L Albumin 1.5 L HDL Cholesterol Miscellaneous Test Crossmatch 08/16/17 08/17/17 08/17/17 09:50 05:00 06:26 WBC RBC Hgb Hct MCV RDW Plt Count Lymph % (Auto) [place] % (Auto) [place] # Seg Neutrophils % Seg Neuts % (Manual) Lymphocytes % (Manual) Monocytes % (Manual) Nucleated RBC % Seg Neutrophils # Seg Neutrophils # Man Lymphocytes # (Manual) Monocytes # (Manual) Eosinophils # (Manual) Basophils # (Manual) PT INR POC ABG pH POC ABG pCO2 POC ABG pO2 Sodium 134 L Potassium 3.0 L Chloride 97.8 L Carbon Dioxide BUN 30 H Creatinine 5.3 H Glucose 147 H POC Glucose 165 H Calcium 7.5 L Phosphorus Magnesium AST ALT Alkaline Phosphatase Troponin T C-Reactive Protein 32.30 H Total Protein Albumin HDL Cholesterol Miscellaneous Test Crossmatch 08/17/17 08/17/17 08/17/17 10:56 11:20 11:20 WBC 39.1 H RBC 3.10 L Hgb 9.2 L Hct 28.6 L MCV RDW 18.3 H Plt Count 580 H Lymph % (Auto) [place] % (Auto) [place] # Seg Neutrophils % Seg Neuts % (Manual) 89.5 H Lymphocytes % (Manual) 3.5 L Monocytes % (Manual) Nucleated RBC % Seg Neutrophils # Seg Neutrophils # Man 35.0 H Lymphocytes # (Manual) Monocytes # (Manual) 2.5 H Eosinophils # (Manual) Basophils # (Manual) 0.2 H PT INR POC ABG pH 7.464 H POC ABG pCO2 34.1 L POC ABG pO2 75 L Sodium Potassium Chloride Carbon Dioxide BUN Creatinine Glucose POC Glucose Calcium Phosphorus Magnesium AST ALT Alkaline Phosphatase Troponin T C-Reactive Protein Total Protein Albumin HDL Cholesterol Miscellaneous Test Flexitest 1 H Crossmatch 08/17/17 08/17/17 08/17/17 11:20 16:57 20:20 WBC 34.4 H RBC 2.81 L Hgb 8.4 L Hct 26.0 L MCV RDW 17.8 H Plt Count 455 H Lymph % (Auto) [place] % (Auto) [place] # Seg Neutrophils % Seg Neuts % (Manual) Lymphocytes % (Manual) 3.5 L Monocytes % (Manual) Nucleated RBC % 5.0 H Seg Neutrophils # Seg Neutrophils # Man 16.5 H Lymphocytes # (Manual) Monocytes # (Manual) 1.0 H Eosinophils # (Manual) Basophils # (Manual) PT 16.0 H INR 1.29 H POC ABG pH POC ABG pCO2 POC ABG pO2 Sodium 135 L Potassium 2.9 L* Chloride Carbon Dioxide 20 L BUN 32 H Creatinine 5.4 H Glucose 129 H POC Glucose Calcium 7.5 L Phosphorus Magnesium 1.50 L AST 85 H ALT Alkaline Phosphatase Troponin T C-Reactive Protein Total Protein 4.0 L D Albumin 1.6 L HDL Cholesterol Miscellaneous Test Crossmatch 08/17/17 08/17/17 08/18/17 20:54 23:47 04:26 WBC RBC Hgb Hct MCV RDW Plt Count Lymph % (Auto) [place] % (Auto) [place] # Seg Neutrophils % Seg Neuts % (Manual) Lymphocytes % (Manual) Monocytes % (Manual) Nucleated RBC % Seg Neutrophils # Seg Neutrophils # Man Lymphocytes # (Manual) Monocytes # (Manual) Eosinophils # (Manual) Basophils # (Manual) PT INR POC ABG pH 7.557 H POC ABG pCO2 23.1 L 29.0 L POC ABG pO2 187 H 148 H Sodium Potassium Chloride Carbon Dioxide BUN Creatinine Glucose POC Glucose 188 H Calcium Phosphorus Magnesium AST ALT Alkaline Phosphatase Troponin T C-Reactive Protein Total Protein Albumin HDL Cholesterol Miscellaneous Test Crossmatch 08/18/17 08/18/17 08/18/17 05:51 11:44 17:07 WBC RBC Hgb Hct MCV RDW Plt Count Lymph % (Auto) [place] % (Auto) [place] # Seg Neutrophils % Seg Neuts % (Manual) Lymphocytes % (Manual) Monocytes % (Manual) Nucleated RBC % Seg Neutrophils # Seg Neutrophils # Man Lymphocytes # (Manual) Monocytes # (Manual) Eosinophils # (Manual) Basophils # (Manual) PT INR POC ABG pH POC ABG pCO2 POC ABG pO2 Sodium Potassium Chloride Carbon Dioxide BUN Creatinine Glucose POC Glucose 202 H 195 H 182 H Calcium Phosphorus Magnesium AST ALT Alkaline Phosphatase Troponin T C-Reactive Protein Total Protein Albumin HDL Cholesterol Miscellaneous Test Crossmatch 08/18/17 08/18/17 08/18/17 23:45 Unknown Unknown WBC 39.0 H RBC 2.84 L Hgb 8.4 L Hct 26.5 L MCV RDW 18.0 H Plt Count 476 H Lymph % (Auto) [place] % (Auto) [place] # Seg Neutrophils % Seg Neuts % (Manual) Lymphocytes % (Manual) 7.0 L Monocytes % (Manual) 10.0 H Nucleated RBC % 3.0 H Seg Neutrophils # Seg Neutrophils # Man 15.6 H Lymphocytes # (Manual) Monocytes # (Manual) 3.9 H Eosinophils # (Manual) Basophils # (Manual) PT INR POC ABG pH POC ABG pCO2 POC ABG pO2 Sodium Potassium Chloride Carbon Dioxide 19 L BUN 34 H Creatinine 5.6 H Glucose 201 H POC Glucose 163 H Calcium 7.8 L Phosphorus 1.90 L D Magnesium 1.60 L AST ALT Alkaline Phosphatase Troponin T C-Reactive Protein Total Protein Albumin HDL Cholesterol Miscellaneous Test Crossmatch 08/19/17 08/19/17 08/19/17 04:18 05:00 05:00 WBC 40.0 H RBC 2.46 L Hgb 7.3 L Hct 22.6 L MCV RDW 18.1 H Plt Count Lymph % (Auto) [place] % (Auto) [place] # Seg Neutrophils % Seg Neuts % (Manual) Lymphocytes % (Manual) 8.0 L Monocytes % (Manual) Nucleated RBC % 2.0 H Seg Neutrophils # Seg Neutrophils # Man 16.4 H Lymphocytes # (Manual) Monocytes # (Manual) 1.2 H Eosinophils # (Manual) 1.2 H Basophils # (Manual) PT INR POC ABG pH 7.463 H POC ABG pCO2 29.7 L POC ABG pO2 134 H Sodium Potassium 5.1 H D Chloride Carbon Dioxide 20 L BUN 40 H Creatinine 5.3 H Glucose 128 H POC Glucose Calcium 7.8 L Phosphorus 1.90 L Magnesium AST ALT Alkaline Phosphatase Troponin T C-Reactive Protein Total Protein Albumin HDL Cholesterol Miscellaneous Test Crossmatch 08/19/17 08/19/17 08/19/17 05:19 07:37 09:52 WBC 45.0 H* RBC 2.50 L Hgb 7.5 L Hct 24.5 L MCV 98 H RDW 18.4 H Plt Count Lymph % (Auto) [place] % (Auto) [place] # Seg Neutrophils % Seg Neuts % (Manual) 81.5 H Lymphocytes % (Manual) 4.0 L Monocytes % (Manual) Nucleated RBC % 1.0 H Seg Neutrophils # Seg Neutrophils # Man 36.7 H Lymphocytes # (Manual) Monocytes # (Manual) Eosinophils # (Manual) Basophils # (Manual) PT INR POC ABG pH POC ABG pCO2 POC ABG pO2 Sodium Potassium Chloride Carbon Dioxide BUN Creatinine Glucose POC Glucose 142 H Calcium Phosphorus Magnesium AST ALT Alkaline Phosphatase Troponin T C-Reactive Protein 34.20 H Total Protein Albumin HDL Cholesterol Miscellaneous Test Crossmatch 08/19/17 08/19/17 08/20/17 11:16 18:12 00:35 WBC RBC Hgb Hct MCV RDW Plt Count Lymph % (Auto) [place] % (Auto) [place] # Seg Neutrophils % Seg Neuts % (Manual) Lymphocytes % (Manual) Monocytes % (Manual) Nucleated RBC % Seg Neutrophils # Seg Neutrophils # Man Lymphocytes # (Manual) Monocytes # (Manual) Eosinophils # (Manual) Basophils # (Manual) PT INR POC ABG pH POC ABG pCO2 POC ABG pO2 Sodium Potassium Chloride Carbon Dioxide BUN Creatinine Glucose POC Glucose 143 H 137 H 164 H Calcium Phosphorus Magnesium AST ALT Alkaline Phosphatase Troponin T C-Reactive Protein Total Protein Albumin HDL Cholesterol Miscellaneous Test Crossmatch 08/20/17 08/20/17 08/20/17 03:20 03:20 04:00 WBC 48.0 H* RBC 2.55 L Hgb 7.6 L Hct 23.4 L MCV RDW 18.4 H Plt Count Lymph % (Auto) [place] % (Auto) [place] # Seg Neutrophils % Seg Neuts % (Manual) 90.0 H Lymphocytes % (Manual) 3.0 L Monocytes % (Manual) Nucleated RBC % Seg Neutrophils # Seg Neutrophils # Man 43.2 H Lymphocytes # (Manual) Monocytes # (Manual) 1.4 H Eosinophils # (Manual) 0.5 H Basophils # (Manual) PT INR POC ABG pH 7.499 H POC ABG pCO2 29.1 L POC ABG pO2 Sodium 135 L Potassium Chloride Carbon Dioxide BUN 28 H Creatinine 4.0 H Glucose 140 H POC Glucose Calcium 8.0 L Phosphorus 1.70 L Magnesium 1.60 L AST ALT Alkaline Phosphatase Troponin T C-Reactive Protein Total Protein Albumin HDL Cholesterol Miscellaneous Test Crossmatch 08/20/17 08/20/17 08/20/17 05:02 12:05 13:12 WBC RBC Hgb Hct MCV RDW Plt Count Lymph % (Auto) [place] % (Auto) [place] # Seg Neutrophils % Seg Neuts % (Manual) Lymphocytes % (Manual) Monocytes % (Manual) Nucleated RBC % Seg Neutrophils # Seg Neutrophils # Man Lymphocytes # (Manual) Monocytes # (Manual) Eosinophils # (Manual) Basophils # (Manual) PT INR POC ABG pH 7.537 H POC ABG pCO2 27.9 L POC ABG pO2 79 L Sodium Potassium Chloride Carbon Dioxide BUN Creatinine Glucose POC Glucose 158 H 203 H Calcium Phosphorus Magnesium AST ALT Alkaline Phosphatase Troponin T C-Reactive Protein Total Protein Albumin HDL Cholesterol Miscellaneous Test Crossmatch 08/20/17 08/21/17 08/21/17 17:13 00:47 03:14 WBC RBC Hgb Hct MCV RDW Plt Count Lymph % (Auto) [place] % (Auto) [place] # Seg Neutrophils % Seg Neuts % (Manual) Lymphocytes % (Manual) Monocytes % (Manual) Nucleated RBC % Seg Neutrophils # Seg Neutrophils # Man Lymphocytes # (Manual) Monocytes # (Manual) Eosinophils # (Manual) Basophils # (Manual) PT INR POC ABG pH 7.481 H POC ABG pCO2 29.6 L POC ABG pO2 Sodium Potassium Chloride Carbon Dioxide BUN Creatinine Glucose POC Glucose 188 H 109 H Calcium Phosphorus Magnesium AST ALT Alkaline Phosphatase Troponin T C-Reactive Protein Total Protein Albumin HDL Cholesterol Miscellaneous Test Crossmatch 08/21/17 08/21/17 08/21/17 05:05 06:50 06:50 WBC 44.7 H* RBC 2.41 L Hgb 7.1 L Hct 22.1 L MCV RDW 18.3 H Plt Count Lymph % (Auto) [place] % (Auto) [place] # Seg Neutrophils % Seg Neuts % (Manual) 89.0 H Lymphocytes % (Manual) 0 L Monocytes % (Manual) Nucleated RBC % 1.0 H Seg Neutrophils # Seg Neutrophils # Man 39.8 H Lymphocytes # (Manual) 0.0 L Monocytes # (Manual) 1.3 H Eosinophils # (Manual) Basophils # (Manual) PT INR POC ABG pH POC ABG pCO2 POC ABG pO2 Sodium 135 L Potassium Chloride Carbon Dioxide BUN 39 H Creatinine 4.4 H Glucose 147 H POC Glucose 166 H Calcium 8.1 L Phosphorus Magnesium AST ALT < 5 L Alkaline Phosphatase 164 H Troponin T C-Reactive Protein Total Protein 4.7 L Albumin 1.4 L HDL Cholesterol Miscellaneous Test Crossmatch 08/21/17 08/21/17 08/21/17 08:00 12:21 17:02 WBC RBC Hgb Hct MCV RDW Plt Count Lymph % (Auto) [place] % (Auto) [place] # Seg Neutrophils % Seg Neuts % (Manual) Lymphocytes % (Manual) Monocytes % (Manual) Nucleated RBC % Seg Neutrophils # Seg Neutrophils # Man Lymphocytes # (Manual) Monocytes # (Manual) Eosinophils # (Manual) Basophils # (Manual) PT INR POC ABG pH POC ABG pCO2 POC ABG pO2 Sodium Potassium Chloride Carbon Dioxide BUN Creatinine Glucose POC Glucose 147 H 135 H Calcium Phosphorus Magnesium AST ALT Alkaline Phosphatase Troponin T C-Reactive Protein Total Protein Albumin HDL Cholesterol Miscellaneous Test Crossmatch See Detail 08/21/17 08/22/17 08/22/17 23:38 03:40 03:40 WBC 42.5 H* RBC 2.88 L Hgb 8.5 L Hct 26.3 L MCV RDW 17.9 H Plt Count Lymph % (Auto) [place] % (Auto) [place] # Seg Neutrophils % Seg Neuts % (Manual) Lymphocytes % (Manual) 5.0 L Monocytes % (Manual) Nucleated RBC % Seg Neutrophils # Seg Neutrophils # Man 19.6 H Lymphocytes # (Manual) Monocytes # (Manual) 2.6 H Eosinophils # (Manual) Basophils # (Manual) PT INR POC ABG pH POC ABG pCO2 POC ABG pO2 Sodium Potassium 3.3 L D Chloride Carbon Dioxide BUN 27 H Creatinine 2.9 H Glucose 144 H POC Glucose 251 H Calcium 8.0 L Phosphorus 2.40 L Magnesium AST ALT Alkaline Phosphatase Troponin T C-Reactive Protein Total Protein Albumin HDL Cholesterol Miscellaneous Test Crossmatch 08/22/17 06:37 WBC RBC Hgb Hct MCV RDW Plt Count Lymph % (Auto) [place] % (Auto) [place] # Seg Neutrophils % Seg Neuts % (Manual) Lymphocytes % (Manual) Monocytes % (Manual) Nucleated RBC % Seg Neutrophils # Seg Neutrophils # Man Lymphocytes # (Manual) Monocytes # (Manual) Eosinophils # (Manual) Basophils # (Manual) PT INR POC ABG pH POC ABG pCO2 POC ABG pO2 Sodium Potassium Chloride Carbon Dioxide BUN Creatinine Glucose POC Glucose 152 H Calcium Phosphorus Magnesium AST ALT Alkaline Phosphatase Troponin T C-Reactive Protein Total Protein Albumin HDL Cholesterol Miscellaneous Test Crossmatch
[2017-08-22] MEDS: PROTONIX IV SCH ×2 (09:12→21:19)
[2017-08-22] MEDS: DIFLUCAN 200 MG/100 ML BAG IV SCH (09:13)
--- NOTE | 2017-08-22 10:23 | Progress Note ---
Assessment and Plan - Patient Problems (1) SBO (small bowel obstruction) Current Visit: Yes Status: Acute Plan to address problem: 62 y.o. F s/p ex-lap, lysis of adhesions, G tube placement, YAMINI drain placement: POD 4 gastric perforation: poor overall nutritional status making the defect difficult to re-seal despite intra-luminal decompression and external drainage. Yamini becoming more light brown/serous and less bilious- more likely small perforation is healing. Once YAMINI drainage is less and in about 5 more days, may attempt another methylene blue test. Prolonged healing anticipated due to poor nutrition. -continue PPI -merrom, diflucan and vanco -TPN for nutrition Resp: s/p extubation. sepsis: likely due intra-abdominal process, hypotension requiring pressor support. ID following. f/u rpt cultures continue abx, and abdominal drainage. wean pressors as tolerated. renal failure: HD per renal. will defer to renal for dialysis and fluid/ electrolyte management. Sacral wound and RLE wound: wound care following. GI proph: PPI DVT proph: rec restarting heparin subq Subjective Narrative: Pt had HD yesterday and 1 units of PRBC was given. She has been extubated on is currently on venti. She is wake and shakes her head not to pain. +grimace when moving. She is not speaking as yet. G tube: 500 cc thick bile. Flushed overnight by nursing due to thickness of bile NG minimal bile output YAMINI: 90cc serous/brown liquid Objective Vital Signs - 12hr 08/21/17 08/21/17 08/21/17 22:30 22:46 23:00 Temperature Pulse Rate 108 H 105 H 105 H Pulse Rate [ Apical] Respiratory 28 H 31 H 25 H Rate Blood Pressure 95/50 98/51 88/51 O2 Sat by Pulse 92 100 99 Oximetry 08/21/17 08/21/17 08/21/17 23:16 23:30 23:37 Temperature Pulse Rate 104 H 104 H Pulse Rate [ Apical] Respiratory 33 H 28 H Rate Blood Pressure 98/51 102/60 O2 Sat by Pulse 100 100 100 Oximetry 08/21/17 08/22/17 08/22/17 23:46 00:00 00:16 Temperature 98.3 F Pulse Rate 105 H 109 H 105 H Pulse Rate [ Apical] Respiratory 28 H 30 H 29 H Rate Blood Pressure 102/60 105/64 102/60 O2 Sat by Pulse 100 99 100 Oximetry 08/22/17 08/22/17 08/22/17 00:30 00:46 01:00 Temperature Pulse Rate 105 H 104 H 103 H Pulse Rate [ Apical] Respiratory 28 H 28 H 27 H Rate Blood Pressure 113/71 104/62 96/66 O2 Sat by Pulse 100 100 100 Oximetry 08/22/17 08/22/17 08/22/17 01:16 01:30 01:46 Temperature Pulse Rate 103 H 105 H 103 H Pulse Rate [ Apical] Respiratory 27 H 30 H 29 H Rate Blood Pressure 98/65 91/70 96/72 O2 Sat by Pulse 100 99 100 Oximetry 08/22/17 08/22/17 08/22/17 02:00 02:16 02:30 Temperature Pulse Rate 102 H 100 H 101 H Pulse Rate [ Apical] Respiratory 29 H 30 H 27 H Rate Blood Pressure 113/65 118/69 113/73 O2 Sat by Pulse 100 100 100 Oximetry 08/22/17 08/22/17 08/22/17 02:46 03:00 03:16 Temperature Pulse Rate 103 H 102 H 102 H Pulse Rate [ Apical] Respiratory 27 H 30 H 29 H Rate Blood Pressure 105/78 118/72 116/74 O2 Sat by Pulse 100 100 100 Oximetry 08/22/17 08/22/17 08/22/17 03:30 03:46 04:00 Temperature 98.3 F Pulse Rate 100 H 102 H 102 H Pulse Rate [ Apical] Respiratory 26 H 28 H 28 H Rate Blood Pressure 115/75 112/71 113/72 O2 Sat by Pulse 100 100 99 Oximetry 08/22/17 08/22/17 08/22/17 04:16 04:30 04:46 Temperature Pulse Rate 102 H 103 H 101 H Pulse Rate [ Apical] Respiratory 30 H 30 H 29 H Rate Blood Pressure 101/77 125/76 127/73 O2 Sat by Pulse 100 100 100 Oximetry 08/22/17 08/22/17 08/22/17 05:00 05:16 05:30 Temperature Pulse Rate 103 H 100 H 102 H Pulse Rate [ Apical] Respiratory 30 H 30 H 31 H Rate Blood Pressure 120/74 121/75 118/70 O2 Sat by Pulse 99 100 100 Oximetry 08/22/17 08/22/17 08/22/17 05:46 06:00 06:16 Temperature Pulse Rate 103 H 103 H 103 H Pulse Rate [ Apical] Respiratory 30 H 30 H 28 H Rate Blood Pressure 114/76 114/76 207/188 O2 Sat by Pulse 95 100 Oximetry 08/22/17 08/22/17 08/22/17 06:30 06:46 07:53 Temperature 98.2 F Pulse Rate 99 H 99 H Pulse Rate [ Apical] Respiratory 28 H 28 H Rate Blood Pressure 101/60 105/84 O2 Sat by Pulse 84 Oximetry 08/22/17 08/22/17 08:24 09:00 Temperature Pulse Rate Pulse Rate [ 100 H Apical] Respiratory 17 Rate Blood Pressure O2 Sat by Pulse 100 Oximetry - General physical appearance well developed, obese - Respiratory normal expansion, normal respiratory effort - Abdomen soft, tender, bowel sounds normal, other (tender at midline incision midline is cdi. kelli in place. no drainage. prev pd site: dressing clean- changed overnight per nurse. yamini and g tube in place. tender mid abd with palp. vol.guarding no rebound. ) - Neurologic disoriented, confused - Musculoskeletal other (moves upper extremiites. +2 edema upper and lower extremities bl) - Labs 08/22/17 03:40 08/22/17 03:40 Diabetes panel 08/22/17 Range/Units 03:40 Sodium 140 (137-145) mmol/L Potassium 3.3 L D (3.6-5.0) mmol/L Chloride 102.8 (98-107) mmol/L Carbon Dioxide 25 (22-30) mmol/L BUN 27 H (7-17) mg/dL Creatinine 2.9 H (0.7-1.2) mg/dL Glucose 144 H (65-100) mg/dL Calcium 8.0 L (8.4-10.2) mg/dL Calcium panel 08/22/17 Range/Units 03:40 Calcium 8.0 L (8.4-10.2) mg/dL Phosphorus 2.40 L (2.5-4.5) mg/dL Pituitary panel 08/22/17 Range/Units 03:40 Sodium 140 (137-145) mmol/L Potassium 3.3 L D (3.6-5.0) mmol/L Chloride 102.8 (98-107) mmol/L Carbon Dioxide 25 (22-30) mmol/L BUN 27 H (7-17) mg/dL Creatinine 2.9 H (0.7-1.2) mg/dL Glucose 144 H (65-100) mg/dL Calcium 8.0 L (8.4-10.2) mg/dL Adrenal panel 08/22/17 Range/Units 03:40 Sodium 140 (137-145) mmol/L Potassium 3.3 L D (3.6-5.0) mmol/L Chloride 102.8 (98-107) mmol/L Carbon Dioxide 25 (22-30) mmol/L BUN 27 H (7-17) mg/dL Creatinine 2.9 H (0.7-1.2) mg/dL Glucose 144 H (65-100) mg/dL Calcium 8.0 L (8.4-10.2) mg/dL
--- NOTE | 2017-08-22 10:57 | Progress Note ---
Assessment and Plan Assessment and plan: --Acute hypoxic respiratory failure. s/p extubation cont supportive care --Septic shock. Secondary to peritonitis. Complex catheter related UTI Continue vancomycin , meropenem and Diflucan. ID following. ID following --End-stage renal disease , PD catheter removed, Vas-Cath placement, hemodialysis per schedule Nephrology following --Anemia secondary to end-stage renal disease; received 1 unit of PRBC with improvement of hemoglobin hemoglobin of 7.1 Consider 1 unit PRBC transfusion during dialysis if needed --Hypophosphatemia/hypomagnesemia ;corrected --Urinary retention/ ? Infected stents. Urology evaluated the patient --Bowel obstruction / status post exploratory lap with removal of PD catheter as a cause of obstruction. --Peritonitis /small bowel obstruction , s/p G-tube placement, abdominal washout , removal of PD catheter. surgery following. --Ulcerative esophagitis/small gastric ulcer on EGD. Continue current medications ,Biopsy report pending --Sepsis secondary to peritonitis /catheter related complex UTI present on admission .continue antibiotics --Severe Protein calorie malnutrition. Continue TPN and supportive care --Leukocytosis. Secondary to peritonitis, complex complicated UTI, ID and hematology following --DVT prophylaxis; SCDs Consults and recommendations noted Plan of care discussed with the patient's nurse Critical care time 31 minutes The high probability of a clinically significant, sudden or life threatening deterioration of the [hemodynamic, respiratory, renal, gastrointestinal] system( s) required my full and direct attention, intervention and personal management. The aggregate critical care time was [31] minutes. This time is in addition to time spent performing reported procedures but includes the following: [x] Data Review and interpretation [x] Patient assessment and monitoring of vital signs [x] Documentation [x] Medication orders and management History Interval history: Patient is seen and examined Extubated yesterday on nasal cannula oxygen Patient complains of pain, remains on pressors Vital signs reviewed Hospitalist Physical - Constitutional Vitals: Temp Pulse Resp BP Pulse Ox 98.2 F 100 H 17 105/84 100 08/22/17 07:53 08/22/17 09:00 08/22/17 09:00 08/22/17 06:46 08/22/17 08:24 General appearance: Present: mild distress, well-nourished, obese (morbidly obese) - EENT Eyes: Present: PERRL, EOM intact - Neck Neck: Present: supple, normal ROM - Respiratory Respiratory effort: normal Respiratory: bilateral: diminished, rhonchi, negative: rales, wheezing - Cardiovascular Rhythm: regular Heart Sounds: Present: S1 & S2 - Extremities Extremities: no ischemia, No edema - Abdominal General gastrointestinal: soft, tender (no guarding no rigidity), absent bowel sounds, other (surgical dressing in place) - Integumentary Integumentary: Present: clear, warm - Psychiatric Psychiatric: other (noncommunicative) - Neurologic Neurologic: other (and communicative) Results - Labs CBC & Chem 7: 08/22/17 03:40 08/22/17 03:40 Labs: Laboratory Last Values WBC 42.5 K/mm3 (4.5-11.0) H* 08/22/17 03:40 RBC 2.88 M/mm3 (3.65-5.03) L 08/22/17 03:40 Hgb 8.5 gm/dl (10.1-14.3) L 08/22/17 03:40 Hct 26.3 % (30.3-42.9) L 08/22/17 03:40 MCV 91 fl (79-97) 08/22/17 03:40 MCH 30 pg (28-32) 08/22/17 03:40 MCHC 32 % (30-34) 08/22/17 03:40 RDW 17.9 % (13.2-15.2) H 08/22/17 03:40 Plt Count 245 K/mm3 (140-440) 08/22/17 03:40 Lymph % (Auto) System Specialist 08/19/17 07:37 [place] % (Auto) System Specialist 08/19/17 07:37 Eos % (Auto) System Specialist 08/19/17 07:37 Baso % (Auto) System Specialist 08/19/17 07:37 Lymph # System Specialist 08/19/17 07:37 [place] # System Specialist 08/19/17 07:37 Eos # System Specialist 08/19/17 07:37 Baso # System Specialist 08/19/17 07:37 Add Manual Diff Complete 08/22/17 03:40 Total Counted 100 08/22/17 03:40 Seg Neutrophils % System Specialist 08/19/17 07:37 Seg Neuts % (Manual) 46.0 % (40.0-70.0) 08/22/17 03:40 Band Neutrophils % 28.0 % 08/22/17 03:40 Lymphocytes % (Manual) 5.0 % (13.4-35.0) L 08/22/17 03:40 Reactive Lymphs % (Man) 0 % 08/22/17 03:40 Monocytes % (Manual) 6.0 % (0.0-7.3) 08/22/17 03:40 Eosinophils % (Manual) 0 % (0.0-4.3) 08/21/17 06:50 Basophils % (Manual) 0 % (0.0-1.8) 08/21/17 06:50 Metamyelocytes % 10.0 % 08/22/17 03:40 Myelocytes % 0 % 08/22/17 03:40 Promyelocytes % 5.0 % 08/22/17 03:40 Blast Cells % 0 % 08/22/17 03:40 Nucleated RBC % Not Reportable 08/22/17 03:40 Seg Neutrophils # System Specialist 08/19/17 07:37 Seg Neutrophils # Man 19.6 K/mm3 (1.8-7.7) H 08/22/17 03:40 Band Neutrophils # 11.9 K/mm3 08/22/17 03:40 Lymphocytes # (Manual) 2.1 K/mm3 (1.2-5.4) 08/22/17 03:40 Abs React Lymphs (Man) 0.0 K/mm3 08/22/17 03:40 Monocytes # (Manual) 2.6 K/mm3 (0.0-0.8) H 08/22/17 03:40 Eosinophils # (Manual) 0.0 K/mm3 (0.0-0.4) 08/22/17 03:40 Basophils # (Manual) 0.0 K/mm3 (0.0-0.1) 08/22/17 03:40 Metamyelocytes # 4.3 K/mm3 08/22/17 03:40 Myelocytes # 0.0 K/mm3 08/22/17 03:40 Promyelocytes # 2.1 K/mm3 08/22/17 03:40 Blast Cells # 0.0 K/mm3 08/22/17 03:40 WBC Morphology Not Reportable 08/22/17 03:40 Hypersegmented Neuts Not Reportable 08/22/17 03:40 Hyposegmented Neuts Not Reportable 08/22/17 03:40 Hypogranular Neuts Not Reportable 08/22/17 03:40 Smudge Cells Rare 08/22/17 03:40 Toxic Granulation Not Reportable 08/22/17 03:40 Toxic Vacuolation Not Reportable 08/22/17 03:40 Dohle Bodies Not Reportable 08/22/17 03:40 Pelger-Huet Anomaly Not Reportable 08/22/17 03:40 Ariel Rods Not Reportable 08/22/17 03:40 Platelet Estimate Appears normal 08/22/17 03:40 Clumped Platelets Not Reportable 08/22/17 03:40 Plt Clumps, EDTA Not Reportable 08/22/17 03:40 Large Platelets Not Reportable 08/22/17 03:40 Giant Platelets Not Reportable 08/22/17 03:40 Platelet Satelliting Not Reportable 08/22/17 03:40 Plt Morphology Comment Not Reportable 08/22/17 03:40 RBC Morphology Not Reportable 08/22/17 03:40 Dimorphic RBCs Not Reportable 08/22/17 03:40 Polychromasia Few 08/22/17 03:40 Hypochromasia 1+ 08/22/17 03:40 Poikilocytosis Not Reportable 08/22/17 03:40 Anisocytosis 1+ 08/22/17 03:40 Microcytosis Not Reportable 08/22/17 03:40 Macrocytosis Not Reportable 08/22/17 03:40 Spherocytes Not Reportable 08/22/17 03:40 Pappenheimer Bodies Not Reportable 08/22/17 03:40 Sickle Cells Not Reportable 08/22/17 03:40 Target Cells 1+ 08/22/17 03:40 Tear Drop Cells Not Reportable 08/22/17 03:40 Ovalocytes Few 08/22/17 03:40 Stomatocytes Few 08/20/17 03:20 Helmet Cells Not Reportable 08/22/17 03:40 [place] Bodies Not Reportable 08/22/17 03:40 [place] Rings Not Reportable 08/22/17 03:40 [place] Cells Not Reportable 08/22/17 03:40 Bite Cells Not Reportable 08/22/17 03:40 Crenated Cell Not Reportable 08/22/17 03:40 Elliptocytes Not Reportable 08/22/17 03:40 Acanthocytes (Spur) Not Reportable 08/22/17 03:40 Rouleaux Not Reportable 08/22/17 03:40 Hemoglobin C Crystals Not Reportable 08/22/17 03:40 Schistocytes Not Reportable 08/22/17 03:40 Malaria parasites Not Reportable 08/22/17 03:40 Jovanni Bodies Not Reportable 08/22/17 03:40 Hem Pathologist Commnt No 08/22/17 03:40 PT 16.0 Sec. (12.2-14.9) H 08/17/17 11:20 INR 1.29 (0.87-1.13) H 08/17/17 11:20 APTT 35.5 Sec. (24.2-36.6) 08/12/17 05:50 POC ABG pH 7.481 (7.35-7.45) H 08/21/17 03:14 POC ABG pCO2 29.6 (35-45) L 08/21/17 03:14 POC ABG pO2 104 (80-105) 08/21/17 03:14 POC ABG HCO3 22.1 08/21/17 03:14 POC ABG Total CO2 23 08/21/17 03:14 POC ABG O2 Sat 98 08/21/17 03:14 POC ABG Base Excess -1 08/21/17 03:14 VBG pH 7.462 (7.320-7.420) H 08/08/17 14:52 FiO2 30 % 08/21/17 03:14 Sodium 140 mmol/L (137-145) 08/22/17 03:40 Potassium 3.3 mmol/L (3.6-5.0) L D 08/22/17 03:40 Chloride 102.8 mmol/L (98-107) 08/22/17 03:40 Carbon Dioxide 25 mmol/L (22-30) 08/22/17 03:40 Anion Gap 16 mmol/L 08/22/17 03:40 BUN 27 mg/dL (7-17) H 08/22/17 03:40 Creatinine 2.9 mg/dL (0.7-1.2) H 08/22/17 03:40 Estimated GFR 20 ml/min 08/22/17 03:40 BUN/Creatinine Ratio 9.31 % 08/22/17 03:40 Glucose 144 mg/dL (65-100) H 08/22/17 03:40 POC Glucose 152 (70-105) H 08/22/17 06:37 Lactic Acid 1.60 mmol/L (0.7-2.0) 08/17/17 11:20 Calcium 8.0 mg/dL (8.4-10.2) L 08/22/17 03:40 Phosphorus 2.40 mg/dL (2.5-4.5) L 08/22/17 03:40 Magnesium 2.00 mg/dL (1.7-2.3) 08/22/17 03:40 Total Bilirubin 0.40 mg/dL (0.1-1.2) 08/21/17 06:50 Direct Bilirubin 0.2 mg/dL (0-0.2) 08/08/17 14:11 Indirect Bilirubin 0.3 mg/dL 08/08/17 14:11 AST 17 units/L (5-40) 08/21/17 06:50 ALT < 5 units/L (7-56) L 08/21/17 06:50 Alkaline Phosphatase 164 units/L (35-129) H 08/21/17 06:50 Ammonia 25.0 umol/L (25-60) 08/08/17 14:52 Troponin T 0.132 ng/mL (0.00-0.029) H* 08/09/17 13:25 C-Reactive Protein 34.20 mg/dL (0.00-1.30) H 08/19/17 09:52 NT-Pro-B Natriuret Pep 6156 pg/mL (0-900) H 08/08/17 14:11 Total Protein 4.7 g/dL (6.3-8.2) L 08/21/17 06:50 Albumin 1.4 g/dL (3.9-5) L 08/21/17 06:50 Albumin/Globulin Ratio 0.4 % 08/21/17 06:50 Triglycerides 62 mg/dL (2-149) 08/08/17 21:23 Cholesterol 91 mg/dL (50-199) 08/08/17 21:23 LDL Cholesterol Direct 53 mg/dL (50-130) 08/08/17 21:23 HDL Cholesterol 26 mg/dL (40-59) L 08/08/17 21:23 Cholesterol/HDL Ratio 3.50 % 08/08/17 21:23 Amylase 45 units/L (27-131) 08/16/17 09:50 Lipase 34 units/L (13-60) 08/16/17 09:50 TSH 6.580 mlU/mL (0.270-4.200) H 08/08/17 14:22 Free T4 1.46 ng/dL (0.76-1.46) 08/08/17 14:22 Total Cortisol 30.1 mcg/dL () 08/13/17 06:14 Urine Color Yellow (Yellow) 08/08/17 20:15 Urine Turbidity Turbid (Clear) 08/08/17 20:15 Urine pH 8.0 (5.0-7.0) H 08/08/17 20:15 Ur Specific [place] 1.015 (1.003-1.030) 08/08/17 20:15 Urine Protein 100 mg/dl mg/dL (Negative) 08/08/17 20:15 Urine Glucose (UA) Neg mg/dL (Negative) 08/08/17 20:15 Urine Ketones Neg mg/dL (Negative) 08/08/17 20:15 Urine Blood Mod (Negative) 08/08/17 20:15 Urine Nitrite Neg (Negative) 08/08/17 20:15 Urine Bilirubin Neg (Negative) 08/08/17 20:15 Urine Urobilinogen < 2.0 mg/dL (<2.0) 08/08/17 20:15 Ur Leukocyte Esterase Lg (Negative) 08/08/17 20:15 Urine WBC (Auto) 24.0 /HPF (0.0-6.0) H 08/08/17 20:15 Urine RBC (Auto) 3.0 /HPF (0.0-6.0) 08/08/17 20:15 U Epithel Cells (Auto) 3.0 /HPF (0-13.0) 08/08/17 20:15 Urine Bacteria (Auto) 4+ /HPF (Negative) 08/08/17 20:15 Urine Mucus 3+ /HPF 08/08/17 20:15 Fluid Type Peritoneal 08/08/17 18:18 Fluid Color Straw 08/08/17 18:18 Fluid Appearance Clear 08/08/17 18:18 Fluid pH 7.74 08/08/17 18:18 Fluid WBC 4 /mm3 08/08/17 18:18 Fluid RBC 1 /mm3 08/08/17 18:18 Fluid Seg Neutrophils 12 % 08/08/17 18:18 Fluid Lymphocytes 0 % 08/08/17 18:18 Fluid Reactive Lymphs 0 % 08/08/17 18:18 Fluid Monocytes 1 % 08/08/17 18:18 Fluid Eosinophils 0 % 08/08/17 18:18 Fluid Basophils 0 % 08/08/17 18:18 Fluid Glucose 315 mg/dL (40-70) H 08/08/17 18:18 Random Vancomycin 19.5 ug/mL (0-40.0) 08/22/17 03:40 Hep Bs Antigen Non-reactive (Negative) 08/22/17 03:40 Hepatitis C Antibody Non-reactive (NonReactive) 08/22/17 03:40 Miscellaneous Test Flexitest 1 H 08/17/17 11:20 Blood Type O POSITIVE 08/21/17 08:00 Antibody Screen Negative 08/21/17 08:00 Crossmatch See Detail 08/21/17 08:00
[2017-08-22] MEDS ORDERED: NACL 0.9% 100 ML IV PRN (11:40)
[2017-08-22] MEDS: DILAUDID IV PRN ×2 (12:23→16:53)
--- NOTE | 2017-08-22 13:28 | Progress Note ---
Assessment and Plan Assessment: 1) Sepsis with septic shock: still on pressors and not better leukocytosis; source bowel obstruction / suspect ?gastric perforation. -CRP=28-->32-->34 -WBC=39 --> 45 --> 48 -->44K -procalcitonin=1.3 2) Bowel obstruction / suspect ?gastric perforation ? peritonitis -S/P Exlap, G-tube placement, EGD, abdominal washout and removal of PD -OR findings - bowel obstruction due to entanglement of PD cath, abscess cavity in LUQ and ? suspect perforation of unclear location -Repeat CT - improved ascitis 3) CA-UTI: chronic ivan exchanged every 4 weeks and ureteral stents in place which are exchanged every 6 months ? 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 6) Recent pancreatitis 7) Penicillin allergy-has taken keflex w/o problems Plan: -continue meropenem day 10, fluconazole day 7 and vancomycin day 7 -consider repeat CT scan if not better by tomorrow -recheck CRP and PCT Thank you Dr Davis for your consultation, will follow up with you. Ramya Lang MD Infectious Diseases Specialist [facility] M [phone] O [phone] Subjective Date of service: 08/22/17 Principal diagnosis: /anemia, poor oral intake. Interval history: Remains critically ill, intubated on the vent, still on levophed at 20 mcg. No fever. Extubated. 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/Diphteroids Current Antimicrobials: 08/13 meropenem 08/16 fluconazole 08/16 vancomycin Previous Antimicrobials: 08/10 levaquin Objective - Exam Narrative Exam: General appearance: sedated on the vent in NAD Eyes: anicteric sclerae, moist conjunctivae; no lid-lag; PERRLA HENT: Atraumatic;+ ETT +NGT Neck: Trachea midline; supple, no thyromegaly or lymphadenopathy Lungs: coarse BS moreno CV: RRR, no murmurs Abdomen: soft, midline surgical wound with kelli a drain covered with surg dressings Gtube Extremities: + peripheral edema + leg ulcer Skin: Normal temperature, turgor and texture; no rash, ulcers or subcutaneous nodules Psych: sedated. Neuro: sedated Lines: Right vascath femoral / Right IJ Nair 08/16 - Constitutional Vitals: Vital Signs Temp Pulse Resp BP Pulse Ox 98.3 F 96 H 25 H 109/68 100 08/22/17 11:59 08/22/17 13:16 08/22/17 13:16 08/22/17 13:16 08/22/17 13:16 Temperature -Last 24 Hours Temperature 98.3 F Temperature 98.2 F Temperature 98.3 F Temperature 98.3 F Temperature 98.6 F Temperature 98.6 F Temperature 98.6 F Temperature 98.3 F Temperature 98.6 F Temperature 98.3 F Temperature 98.3 F - Labs CBC & Chem 7: 08/22/17 03:40 08/22/17 03:40 Labs: Abnormal lab results 08/20/17 08/21/17 08/21/17 Range/Units 17:13 08:00 12:21 WBC (4.5-11.0) K/mm3 RBC (3.65-5.03) M/mm3 Hgb (10.1-14.3) gm/dl Hct (30.3-42.9) % RDW (13.2-15.2) % Lymphocytes % (Manual) (13.4-35.0) % Seg Neutrophils # Man (1.8-7.7) K/mm3 Monocytes # (Manual) (0.0-0.8) K/mm3 Potassium (3.6-5.0) mmol/L BUN (7-17) mg/dL Creatinine (0.7-1.2) mg/dL Glucose (65-100) mg/dL POC Glucose 188 H 147 H (70-105) Calcium (8.4-10.2) mg/dL Phosphorus (2.5-4.5) mg/dL Crossmatch See Detail 08/21/17 08/21/17 08/22/17 Range/Units 17:02 23:38 03:40 WBC 42.5 H* (4.5-11.0) K/mm3 RBC 2.88 L (3.65-5.03) M/mm3 Hgb 8.5 L (10.1-14.3) gm/dl Hct 26.3 L (30.3-42.9) % RDW 17.9 H (13.2-15.2) % Lymphocytes % (Manual) 5.0 L (13.4-35.0) % Seg Neutrophils # Man 19.6 H (1.8-7.7) K/mm3 Monocytes # (Manual) 2.6 H (0.0-0.8) K/mm3 Potassium (3.6-5.0) mmol/L BUN (7-17) mg/dL Creatinine (0.7-1.2) mg/dL Glucose (65-100) mg/dL POC Glucose 135 H 251 H (70-105) Calcium (8.4-10.2) mg/dL Phosphorus (2.5-4.5) mg/dL Crossmatch 08/22/17 08/22/17 08/22/17 Range/Units 03:40 06:37 11:25 WBC (4.5-11.0) K/mm3 RBC (3.65-5.03) M/mm3 Hgb (10.1-14.3) gm/dl Hct (30.3-42.9) % RDW (13.2-15.2) % Lymphocytes % (Manual) (13.4-35.0) % Seg Neutrophils # Man (1.8-7.7) K/mm3 Monocytes # (Manual) (0.0-0.8) K/mm3 Potassium 3.3 L D (3.6-5.0) mmol/L BUN 27 H (7-17) mg/dL Creatinine 2.9 H (0.7-1.2) mg/dL Glucose 144 H (65-100) mg/dL POC Glucose 152 H 175 H (70-105) Calcium 8.0 L (8.4-10.2) mg/dL Phosphorus 2.40 L (2.5-4.5) mg/dL Crossmatch
[2017-08-22] MEDS: MERREM 1,000 MG in NACL 0.9% 100 ML IV SCH (15:32)
[2017-08-22] MEDS ORDERED: TPN ADULT 1,800 ML IV SCH (20:00)
--- NOTE | 2017-08-22 22:09 | Progress Note ---
Assessment and Plan - Patient Problems (1) Leukocytosis Current Visit: Yes Status: Acute Qualifiers: Leukocytosis type: L Plan to address problem: See notes above. make sure that PD access is clean also. see notes. Probably infection from the infected PD catheter. (2) Anemia Current Visit: Yes Status: Acute Qualifiers: Anemia type: A Iron deficiency anemia type: I Vitamin B12 deficiency anemia type: V Folate deficiency anemia type: F Bone marrow failure anemia type: B Hemolytic anemia type: H Other causes of anemia: O Chronic kidney disease stage: C Plan to address problem: see notes , monitor labs,. see notes above. continue to monitor labs with you. Subjective Date of service: 08/22/17 Principal diagnosis: /anemia, poor oral intake. Interval history: Patient seen today/examined, labs reviewed, case d/w she, and family.complaints of abdominal pain. Patient resting in bed in the ICU, post vascular procedure. labs reviewed, Reactive thrombocytosis, anemia of CD, leukocytosis from infection vs inflamatory process. Patient seen/examined, in bed in the ICU, on the vent post surgery.Labs reviewed , notes reviewed. will continue to monitor labs/patient with you. Replacement transfusion, if /when indicated. patient seen/examined, SBP75, on pressors., lethargic, on the vent, labs reviewed, wbc 39,000 Patient seen/examined, case reviewed, d/w her sister at the bed side. Patient seen/examined, labs reviewed, notes reviewed. severe septic shock from infected PD catheter The high wbc is all infection related. H?H low, and may get replacement transfusion with the next HD. Prognosis remain quite poor. Patient seen/examined, extubated, now on V Mask. labs reviewed. patient seen/examined, resting in bed, still some what lethargic . labs reviewed. Objective - Constitutional Vitals: Vital Signs - 12hr 08/22/17 08/22/17 08/22/17 10:16 10:30 10:46 Temperature Pulse Rate 99 H 99 H 101 H Pulse Rate [ Apical] Respiratory 28 H 24 24 Rate Respiratory Rate [ Generalized] Blood Pressure 114/68 108/63 107/67 O2 Sat by Pulse 100 100 100 Oximetry 08/22/17 08/22/17 08/22/17 11:00 11:16 11:30 Temperature Pulse Rate 101 H 101 H 101 H Pulse Rate [ Apical] Respiratory 23 24 29 H Rate Respiratory Rate [ Generalized] Blood Pressure 114/67 111/70 113/66 O2 Sat by Pulse 99 100 98 Oximetry 08/22/17 08/22/17 08/22/17 11:46 11:59 12:00 Temperature 98.3 F Pulse Rate 103 H 99 H Pulse Rate [ Apical] Respiratory 27 H 27 H Rate Respiratory Rate [ Generalized] Blood Pressure 108/84 108/67 O2 Sat by Pulse 100 98 Oximetry 08/22/17 08/22/17 08/22/17 12:15 12:16 12:30 Temperature Pulse Rate 101 H 100 H Pulse Rate [ 99 H Apical] Respiratory 23 24 24 Rate Respiratory Rate [ Generalized] Blood Pressure 107/70 103/62 O2 Sat by Pulse 100 Oximetry 08/22/17 08/22/17 08/22/17 12:46 13:00 13:16 Temperature Pulse Rate 98 H 97 H 96 H Pulse Rate [ Apical] Respiratory 25 H 22 25 H Rate Respiratory Rate [ Generalized] Blood Pressure 96/66 105/63 109/68 O2 Sat by Pulse 100 98 100 Oximetry 08/22/17 08/22/17 08/22/17 13:30 13:46 14:00 Temperature Pulse Rate 96 H 94 H 94 H Pulse Rate [ Apical] Respiratory 20 24 20 Rate Respiratory Rate [ Generalized] Blood Pressure 104/65 105/66 110/67 O2 Sat by Pulse 98 100 99 Oximetry 08/22/17 08/22/17 08/22/17 14:16 14:30 14:46 Temperature Pulse Rate 93 H 93 H 94 H Pulse Rate [ Apical] Respiratory 28 H 21 21 Rate Respiratory Rate [ Generalized] Blood Pressure 108/68 111/69 116/71 O2 Sat by Pulse 100 100 Oximetry 08/22/17 08/22/17 08/22/17 15:00 15:16 15:30 Temperature Pulse Rate 93 H 92 H 92 H Pulse Rate [ Apical] Respiratory 21 15 20 Rate Respiratory Rate [ Generalized] Blood Pressure 114/70 120/73 103/62 O2 Sat by Pulse 99 100 Oximetry 08/22/17 08/22/17 08/22/17 15:46 15:48 16:00 Temperature 97.9 F Pulse Rate 94 H 95 H Pulse Rate [ Apical] Respiratory 19 22 Rate Respiratory Rate [ Generalized] Blood Pressure 119/72 124/79 O2 Sat by Pulse 100 99 Oximetry 08/22/17 08/22/17 08/22/17 16:15 16:16 16:30 Temperature Pulse Rate 93 H Pulse Rate [ 88 Apical] Respiratory 17 24 Rate Respiratory Rate [ Generalized] Blood Pressure 130/86 113/77 O2 Sat by Pulse 98 99 Oximetry 08/22/17 08/22/17 08/22/17 16:46 17:00 17:16 Temperature Pulse Rate 91 H 92 H 89 Pulse Rate [ Apical] Respiratory 21 19 20 Rate Respiratory Rate [ Generalized] Blood Pressure 117/81 123/77 108/69 O2 Sat by Pulse 99 98 99 Oximetry 08/22/17 08/22/17 08/22/17 17:30 17:46 18:00 Temperature Pulse Rate 88 87 88 Pulse Rate [ Apical] Respiratory 18 18 25 H Rate Respiratory Rate [ Generalized] Blood Pressure 110/77 115/78 119/74 O2 Sat by Pulse 97 99 96 Oximetry 08/22/17 08/22/17 08/22/17 18:16 18:30 18:46 Temperature Pulse Rate 87 92 H 87 Pulse Rate [ Apical] Respiratory 19 22 18 Rate Respiratory Rate [ Generalized] Blood Pressure 110/77 110/74 119/80 O2 Sat by Pulse 99 99 100 Oximetry 08/22/17 08/22/17 08/22/17 19:00 19:16 19:30 Temperature Pulse Rate 85 85 85 Pulse Rate [ Apical] Respiratory 14 18 17 Rate Respiratory Rate [ Generalized] Blood Pressure 122/74 127/80 117/77 O2 Sat by Pulse 99 100 99 Oximetry 08/22/17 08/22/17 08/22/17 19:46 19:47 19:52 Temperature 98.9 F Pulse Rate 86 Pulse Rate [ Apical] Respiratory 17 Rate Respiratory Rate [ Generalized] Blood Pressure 108/81 O2 Sat by Pulse 100 100 Oximetry 08/22/17 08/22/17 08/22/17 20:00 20:16 20:30 Temperature Pulse Rate 90 88 85 Pulse Rate [ Apical] Respiratory 15 18 17 Rate Respiratory Rate [ Generalized] Blood Pressure 126/81 115/81 120/73 O2 Sat by Pulse 100 100 97 Oximetry 08/22/17 08/22/17 08/22/17 20:46 21:00 21:16 Temperature Pulse Rate 86 85 87 Pulse Rate [ Apical] Respiratory 16 15 16 Rate Respiratory Rate [ Generalized] Blood Pressure 113/69 98/62 97/70 O2 Sat by Pulse 100 100 100 Oximetry 08/22/17 08/22/17 08/22/17 21:30 21:46 21:55 Temperature Pulse Rate 85 87 84 Pulse Rate [ Apical] Respiratory 17 18 Rate Respiratory Rate [ Generalized] Blood Pressure 100/69 104/75 O2 Sat by Pulse 100 100 Oximetry 08/22/17 21:57 Temperature Pulse Rate Pulse Rate [ Apical] Respiratory Rate Respiratory 17 Rate [ Generalized] Blood Pressure O2 Sat by Pulse Oximetry General appearance: Present: mild distress, well-nourished - EENT ENT: hearing intact, clear oral mucosa Ears: bilateral: normal - Neck Neck: supple, normal ROM - Respiratory Respiratory: bilateral: rhonchi - Breasts Breasts: deferred - Cardiovascular Rhythm: regular Heart Sounds: Present: S1 & S2. Absent: gallop, rub Extremities: pulses intact, No edema, normal color, Full ROM - Gastrointestinal General gastrointestinal: Present: soft, non-tender, non-distended, normal bowel sounds Rectal Exam: deferred - Genitourinary Female genitourinary: deferred - Integumentary Integumentary: clear, warm, dry - Labs CBC & Chem 7: 08/22/17 03:40 08/22/17 03:40 Labs: Abnormal lab results 08/21/17 08/22/17 08/22/17 Range/Units 23:38 03:40 03:40 WBC 42.5 H* (4.5-11.0) K/mm3 RBC 2.88 L (3.65-5.03) M/mm3 Hgb 8.5 L (10.1-14.3) gm/dl Hct 26.3 L (30.3-42.9) % RDW 17.9 H (13.2-15.2) % Lymphocytes % (Manual) 5.0 L (13.4-35.0) % Seg Neutrophils # Man 19.6 H (1.8-7.7) K/mm3 Monocytes # (Manual) 2.6 H (0.0-0.8) K/mm3 Potassium 3.3 L D (3.6-5.0) mmol/L BUN 27 H (7-17) mg/dL Creatinine 2.9 H (0.7-1.2) mg/dL Glucose 144 H (65-100) mg/dL POC Glucose 251 H (70-105) Calcium 8.0 L (8.4-10.2) mg/dL Phosphorus 2.40 L (2.5-4.5) mg/dL C-Reactive Protein (0.00-1.30) mg/dL 08/22/17 08/22/17 08/22/17 Range/Units 06:37 11:25 16:25 WBC (4.5-11.0) K/mm3 RBC (3.65-5.03) M/mm3 Hgb (10.1-14.3) gm/dl Hct (30.3-42.9) % RDW (13.2-15.2) % Lymphocytes % (Manual) (13.4-35.0) % Seg Neutrophils # Man (1.8-7.7) K/mm3 Monocytes # (Manual) (0.0-0.8) K/mm3 Potassium (3.6-5.0) mmol/L BUN (7-17) mg/dL Creatinine (0.7-1.2) mg/dL Glucose (65-100) mg/dL POC Glucose 152 H 175 H (70-105) Calcium (8.4-10.2) mg/dL Phosphorus (2.5-4.5) mg/dL C-Reactive Protein 30.70 H (0.00-1.30) mg/dL 08/22/17 Range/Units 17:56 WBC (4.5-11.0) K/mm3 RBC (3.65-5.03) M/mm3 Hgb (10.1-14.3) gm/dl Hct (30.3-42.9) % RDW (13.2-15.2) % Lymphocytes % (Manual) (13.4-35.0) % Seg Neutrophils # Man (1.8-7.7) K/mm3 Monocytes # (Manual) (0.0-0.8) K/mm3 Potassium (3.6-5.0) mmol/L BUN (7-17) mg/dL Creatinine (0.7-1.2) mg/dL Glucose (65-100) mg/dL POC Glucose 232 H (70-105) Calcium (8.4-10.2) mg/dL Phosphorus (2.5-4.5) mg/dL C-Reactive Protein (0.00-1.30) mg/dL
[2017-08-23] MEDS: LEVOPHED 8 MG in NACL 0.9% 250ML 242 ML IV SCH ×3 (04:37→19:00)
--- NOTE | 2017-08-23 08:49 | Progress Note ---
Assessment and Plan Assessment and plan: --Septic shock. Remains on pressors --Sepsis secondary to peritonitis /catheter related complex UTI present on admission .continue current antibiotics per ID --Acute hypoxic respiratory failure. s/p extubation --End-stage renal disease , PD catheter removed, Vas-Cath placement, hemodialysis per schedule --Anemia secondary to end-stage renal disease; received 1 unit of PRBC was to monitor --Hypophosphatemia/hypomagnesemia ;corrected --Urinary retention/ ? Infected stents. Urology evaluated the patient --Bowel obstruction / status post exploratory lap with removal of PD catheter as a cause of obstruction. --Peritonitis /small bowel obstruction , s/p G-tube placement, abdominal washout , removal of PD catheter. surgery following. --Ulcerative esophagitis/small gastric ulcer on EGD. Continue current medications --Severe Protein calorie malnutrition., Continue TPN and supportive care --Leukocytosis. Secondary to peritonitis, complex complicated UTI, ID and hematology following --DVT prophylaxis; SCDs Consults and recommendations noted Plan of care discussed with the patient's nurse Critical care time 31 minutes The high probability of a clinically significant, sudden or life threatening deterioration of the [hemodynamic, respiratory, renal, gastrointestinal] system( s) required my full and direct attention, intervention and personal management. The aggregate critical care time was [31] minutes. This time is in addition to time spent performing reported procedures but includes the following: [x] Data Review and interpretation [x] Patient assessment and monitoring of vital signs [x] Documentation [x] Medication orders and management History Interval history: Patient is seen and examined this morning Medical records reviewed, patient feels slightly better Responding to simple questions appropriately, not in acute distress Hospitalist Physical - Constitutional Vitals: Temp Pulse Resp BP Pulse Ox 98.2 F 91 H 18 127/78 100 08/23/17 08:00 08/23/17 06:00 08/23/17 06:00 08/23/17 06:00 08/23/17 07:13 General appearance: Present: no acute distress, well-nourished - EENT Eyes: Present: PERRL, EOM intact - Neck Neck: Present: supple, normal ROM - Respiratory Respiratory effort: normal Respiratory: bilateral: diminished, negative: rales, rhonchi, wheezing - Cardiovascular Rhythm: regular Heart Sounds: Present: S1 & S2 - Extremities Extremities: no ischemia Extremity abnormal: edema - Abdominal General gastrointestinal: soft, non-tender, non-distended, absent bowel sounds, other (surgical dressing in place) - Integumentary Integumentary: Present: clear, warm - Psychiatric Psychiatric: appropriate mood/affect, cooperative - Neurologic Neurologic: moves all extremities Results - Labs CBC & Chem 7: 08/22/17 03:40 08/22/17 03:40 Labs: Laboratory Last Values WBC 42.5 K/mm3 (4.5-11.0) H* 08/22/17 03:40 RBC 2.88 M/mm3 (3.65-5.03) L 08/22/17 03:40 Hgb 8.5 gm/dl (10.1-14.3) L 08/22/17 03:40 Hct 26.3 % (30.3-42.9) L 08/22/17 03:40 MCV 91 fl (79-97) 08/22/17 03:40 MCH 30 pg (28-32) 08/22/17 03:40 MCHC 32 % (30-34) 08/22/17 03:40 RDW 17.9 % (13.2-15.2) H 08/22/17 03:40 Plt Count 245 K/mm3 (140-440) 08/22/17 03:40 Lymph % (Auto) Molecular Biology Director 08/19/17 07:37 [place] % (Auto) Molecular Biology Director 08/19/17 07:37 Eos % (Auto) Molecular Biology Director 08/19/17 07:37 Baso % (Auto) Molecular Biology Director 08/19/17 07:37 Lymph # Molecular Biology Director 08/19/17 07:37 [place] # Molecular Biology Director 08/19/17 07:37 Eos # Molecular Biology Director 08/19/17 07:37 Baso # Molecular Biology Director 08/19/17 07:37 Add Manual Diff Complete 08/22/17 03:40 Total Counted 100 08/22/17 03:40 Seg Neutrophils % Molecular Biology Director 08/19/17 07:37 Seg Neuts % (Manual) 46.0 % (40.0-70.0) 08/22/17 03:40 Band Neutrophils % 28.0 % 08/22/17 03:40 Lymphocytes % (Manual) 5.0 % (13.4-35.0) L 08/22/17 03:40 Reactive Lymphs % (Man) 0 % 08/22/17 03:40 Monocytes % (Manual) 6.0 % (0.0-7.3) 08/22/17 03:40 Eosinophils % (Manual) 0 % (0.0-4.3) 08/21/17 06:50 Basophils % (Manual) 0 % (0.0-1.8) 08/21/17 06:50 Metamyelocytes % 10.0 % 08/22/17 03:40 Myelocytes % 0 % 08/22/17 03:40 Promyelocytes % 5.0 % 08/22/17 03:40 Blast Cells % 0 % 08/22/17 03:40 Nucleated RBC % Not Reportable 08/22/17 03:40 Seg Neutrophils # Molecular Biology Director 08/19/17 07:37 Seg Neutrophils # Man 19.6 K/mm3 (1.8-7.7) H 08/22/17 03:40 Band Neutrophils # 11.9 K/mm3 08/22/17 03:40 Lymphocytes # (Manual) 2.1 K/mm3 (1.2-5.4) 08/22/17 03:40 Abs React Lymphs (Man) 0.0 K/mm3 08/22/17 03:40 Monocytes # (Manual) 2.6 K/mm3 (0.0-0.8) H 08/22/17 03:40 Eosinophils # (Manual) 0.0 K/mm3 (0.0-0.4) 08/22/17 03:40 Basophils # (Manual) 0.0 K/mm3 (0.0-0.1) 08/22/17 03:40 Metamyelocytes # 4.3 K/mm3 08/22/17 03:40 Myelocytes # 0.0 K/mm3 08/22/17 03:40 Promyelocytes # 2.1 K/mm3 08/22/17 03:40 Blast Cells # 0.0 K/mm3 08/22/17 03:40 WBC Morphology Not Reportable 08/22/17 03:40 Hypersegmented Neuts Not Reportable 08/22/17 03:40 Hyposegmented Neuts Not Reportable 08/22/17 03:40 Hypogranular Neuts Not Reportable 08/22/17 03:40 Smudge Cells Rare 08/22/17 03:40 Toxic Granulation Not Reportable 08/22/17 03:40 Toxic Vacuolation Not Reportable 08/22/17 03:40 Dohle Bodies Not Reportable 08/22/17 03:40 Pelger-Huet Anomaly Not Reportable 08/22/17 03:40 Ariel Rods Not Reportable 08/22/17 03:40 Platelet Estimate Appears normal 08/22/17 03:40 Clumped Platelets Not Reportable 08/22/17 03:40 Plt Clumps, EDTA Not Reportable 08/22/17 03:40 Large Platelets Not Reportable 08/22/17 03:40 Giant Platelets Not Reportable 08/22/17 03:40 Platelet Satelliting Not Reportable 08/22/17 03:40 Plt Morphology Comment Not Reportable 08/22/17 03:40 RBC Morphology Not Reportable 08/22/17 03:40 Dimorphic RBCs Not Reportable 08/22/17 03:40 Polychromasia Few 08/22/17 03:40 Hypochromasia 1+ 08/22/17 03:40 Poikilocytosis Not Reportable 08/22/17 03:40 Anisocytosis 1+ 08/22/17 03:40 Microcytosis Not Reportable 08/22/17 03:40 Macrocytosis Not Reportable 08/22/17 03:40 Spherocytes Not Reportable 08/22/17 03:40 Pappenheimer Bodies Not Reportable 08/22/17 03:40 Sickle Cells Not Reportable 08/22/17 03:40 Target Cells 1+ 08/22/17 03:40 Tear Drop Cells Not Reportable 08/22/17 03:40 Ovalocytes Few 08/22/17 03:40 Stomatocytes Few 08/20/17 03:20 Helmet Cells Not Reportable 08/22/17 03:40 [place] Bodies Not Reportable 08/22/17 03:40 [place] Rings Not Reportable 08/22/17 03:40 [place] Cells Not Reportable 08/22/17 03:40 Bite Cells Not Reportable 08/22/17 03:40 Crenated Cell Not Reportable 08/22/17 03:40 Elliptocytes Not Reportable 08/22/17 03:40 Acanthocytes (Spur) Not Reportable 08/22/17 03:40 Rouleaux Not Reportable 08/22/17 03:40 Hemoglobin C Crystals Not Reportable 08/22/17 03:40 Schistocytes Not Reportable 08/22/17 03:40 Malaria parasites Not Reportable 08/22/17 03:40 J[place] Bodies Not Reportable 08/22/17 03:40 Hem Pathologist Commnt No 08/22/17 03:40 PT 16.0 Sec. (12.2-14.9) H 08/17/17 11:20 INR 1.29 (0.87-1.13) H 08/17/17 11:20 APTT 35.5 Sec. (24.2-36.6) 08/12/17 05:50 POC ABG pH 7.481 (7.35-7.45) H 08/21/17 03:14 POC ABG pCO2 29.6 (35-45) L 08/21/17 03:14 POC ABG pO2 104 (80-105) 08/21/17 03:14 POC ABG HCO3 22.1 08/21/17 03:14 POC ABG Total CO2 23 08/21/17 03:14 POC ABG O2 Sat 98 08/21/17 03:14 POC ABG Base Excess -1 08/21/17 03:14 VBG pH 7.462 (7.320-7.420) H 08/08/17 14:52 FiO2 30 % 08/21/17 03:14 Sodium 140 mmol/L (137-145) 08/22/17 03:40 Potassium 3.3 mmol/L (3.6-5.0) L D 08/22/17 03:40 Chloride 102.8 mmol/L (98-107) 08/22/17 03:40 Carbon Dioxide 25 mmol/L (22-30) 08/22/17 03:40 Anion Gap 16 mmol/L 08/22/17 03:40 BUN 27 mg/dL (7-17) H 08/22/17 03:40 Creatinine 2.9 mg/dL (0.7-1.2) H 08/22/17 03:40 Estimated GFR 20 ml/min 08/22/17 03:40 BUN/Creatinine Ratio 9.31 % 08/22/17 03:40 Glucose 144 mg/dL (65-100) H 08/22/17 03:40 POC Glucose 206 (70-105) H 08/23/17 05:36 Lactic Acid 1.60 mmol/L (0.7-2.0) 08/17/17 11:20 Calcium 8.0 mg/dL (8.4-10.2) L 08/22/17 03:40 Phosphorus 2.40 mg/dL (2.5-4.5) L 08/22/17 03:40 Magnesium 2.00 mg/dL (1.7-2.3) 08/22/17 03:40 Total Bilirubin 0.40 mg/dL (0.1-1.2) 08/21/17 06:50 Direct Bilirubin 0.2 mg/dL (0-0.2) 08/08/17 14:11 Indirect Bilirubin 0.3 mg/dL 08/08/17 14:11 AST 17 units/L (5-40) 08/21/17 06:50 ALT < 5 units/L (7-56) L 08/21/17 06:50 Alkaline Phosphatase 164 units/L (35-129) H 08/21/17 06:50 Ammonia 25.0 umol/L (25-60) 08/08/17 14:52 Troponin T 0.132 ng/mL (0.00-0.029) H* 08/09/17 13:25 C-Reactive Protein 30.70 mg/dL (0.00-1.30) H 08/22/17 16:25 NT-Pro-B Natriuret Pep 6156 pg/mL (0-900) H 08/08/17 14:11 Total Protein 4.7 g/dL (6.3-8.2) L 08/21/17 06:50 Albumin 1.4 g/dL (3.9-5) L 08/21/17 06:50 Albumin/Globulin Ratio 0.4 % 08/21/17 06:50 Triglycerides 62 mg/dL (2-149) 08/08/17 21:23 Cholesterol 91 mg/dL (50-199) 08/08/17 21:23 LDL Cholesterol Direct 53 mg/dL (50-130) 08/08/17 21:23 HDL Cholesterol 26 mg/dL (40-59) L 08/08/17 21:23 Cholesterol/HDL Ratio 3.50 % 08/08/17 21:23 Amylase 45 units/L (27-131) 08/16/17 09:50 Lipase 34 units/L (13-60) 08/16/17 09:50 TSH 6.580 mlU/mL (0.270-4.200) H 08/08/17 14:22 Free T4 1.46 ng/dL (0.76-1.46) 08/08/17 14:22 Total Cortisol 30.1 mcg/dL () 08/13/17 06:14 Urine Color Yellow (Yellow) 08/08/17 20:15 Urine Turbidity Turbid (Clear) 08/08/17 20:15 Urine pH 8.0 (5.0-7.0) H 08/08/17 20:15 Ur Specific Reading 1.015 (1.003-1.030) 08/08/17 20:15 Urine Protein 100 mg/dl mg/dL (Negative) 08/08/17 20:15 Urine Glucose (UA) Neg mg/dL (Negative) 08/08/17 20:15 Urine Ketones Neg mg/dL (Negative) 08/08/17 20:15 Urine Blood Mod (Negative) 08/08/17 20:15 Urine Nitrite Neg (Negative) 08/08/17 20:15 Urine Bilirubin Neg (Negative) 08/08/17 20:15 Urine Urobilinogen < 2.0 mg/dL (<2.0) 08/08/17 20:15 Ur Leukocyte Esterase Lg (Negative) 08/08/17 20:15 Urine WBC (Auto) 24.0 /HPF (0.0-6.0) H 08/08/17 20:15 Urine RBC (Auto) 3.0 /HPF (0.0-6.0) 08/08/17 20:15 U Epithel Cells (Auto) 3.0 /HPF (0-13.0) 08/08/17 20:15 Urine Bacteria (Auto) 4+ /HPF (Negative) 08/08/17 20:15 Urine Mucus 3+ /HPF 08/08/17 20:15 Fluid Type Peritoneal 08/08/17 18:18 Fluid Color Straw 08/08/17 18:18 Fluid Appearance Clear 08/08/17 18:18 Fluid pH 7.74 08/08/17 18:18 Fluid WBC 4 /mm3 08/08/17 18:18 Fluid RBC 1 /mm3 08/08/17 18:18 Fluid Seg Neutrophils 12 % 08/08/17 18:18 Fluid Lymphocytes 0 % 08/08/17 18:18 Fluid Reactive Lymphs 0 % 08/08/17 18:18 Fluid Monocytes 1 % 08/08/17 18:18 Fluid Eosinophils 0 % 08/08/17 18:18 Fluid Basophils 0 % 08/08/17 18:18 Fluid Glucose 315 mg/dL (40-70) H 08/08/17 18:18 Random Vancomycin 19.5 ug/mL (0-40.0) 08/22/17 03:40 Hep Bs Antigen Non-reactive (Negative) 08/22/17 03:40 Hepatitis C Antibody Non-reactive (NonReactive) 08/22/17 03:40 Miscellaneous Test Flexitest 1 H 08/17/17 11:20 Blood Type O POSITIVE 08/21/17 08:00 Antibody Screen Negative 08/21/17 08:00 Crossmatch See Detail 08/21/17 08:00
[2017-08-23] MEDS: PROTONIX IV SCH ×2 (09:00→21:45)
--- NOTE | 2017-08-23 09:03 | Progress Note ---
Assessment and Plan 62 y/o female originally admitted with hypotension, now back to ICU secondary to worsening hypotension, concern for sepsis, with acute respiratory failure post-op from ex-lap for abdominal distention and possible ileus. 1. Pain control for dressing changes. 2. Wean Nasal Cannula as tolerated 3. Follow up any new ID recs 4. Continue Stress dose steroids at current dosing. Wean pressors for maps>60 5. Will continue to follow while in ICU Overall prognosis is guarded CCT 31 Subjective Date of service: 08/23/17 Principal diagnosis: /anemia, poor oral intake. Interval history: No acute events. Awake. Will tell you her name and where she is. I could not get her to answer any other questions. Daughter at bedside. Started stress dose steroids on yesterday and pressor requirement has come down significantly. Only labs today have been FSBS Objective Vital Signs - 12hr 08/22/17 08/22/17 08/22/17 21:16 21:30 21:46 Temperature Pulse Rate 87 85 87 Pulse Rate [ Apical] Pulse Rate [ From Monitor] Pulse Rate [ Left Dorsalis Pedis] Pulse Rate [ Left Radial] Pulse Rate [ Right Dorsalis Pedis] Pulse Rate [ Right Radial] Respiratory 16 17 18 Rate Respiratory Rate [ Generalized] Blood Pressure 97/70 100/69 104/75 O2 Sat by Pulse 100 100 100 Oximetry 08/22/17 08/22/17 08/22/17 21:54 21:55 21:57 Temperature Pulse Rate 84 84 Pulse Rate [ Apical] Pulse Rate [ From Monitor] Pulse Rate [ Left Dorsalis Pedis] Pulse Rate [ Left Radial] Pulse Rate [ Right Dorsalis Pedis] Pulse Rate [ Right Radial] Respiratory 17 Rate Respiratory 17 Rate [ Generalized] Blood Pressure 115/67 O2 Sat by Pulse 98 Oximetry 08/22/17 08/22/17 08/22/17 22:00 22:15 22:30 Temperature Pulse Rate 85 84 86 Pulse Rate [ Apical] Pulse Rate [ From Monitor] Pulse Rate [ Left Dorsalis Pedis] Pulse Rate [ Left Radial] Pulse Rate [ Right Dorsalis Pedis] Pulse Rate [ Right Radial] Respiratory 20 15 18 Rate Respiratory Rate [ Generalized] Blood Pressure 115/74 113/69 121/75 O2 Sat by Pulse 100 98 100 Oximetry 08/22/17 08/22/17 08/22/17 22:45 23:00 23:16 Temperature Pulse Rate 85 85 84 Pulse Rate [ Apical] Pulse Rate [ From Monitor] Pulse Rate [ Left Dorsalis Pedis] Pulse Rate [ Left Radial] Pulse Rate [ Right Dorsalis Pedis] Pulse Rate [ Right Radial] Respiratory 16 17 17 Rate Respiratory Rate [ Generalized] Blood Pressure 110/74 102/75 105/72 O2 Sat by Pulse 98 98 Oximetry 08/22/17 08/22/17 08/23/17 23:30 23:45 00:00 Temperature 98.8 F Pulse Rate 85 85 84 Pulse Rate [ Apical] Pulse Rate [ From Monitor] Pulse Rate [ Left Dorsalis Pedis] Pulse Rate [ Left Radial] Pulse Rate [ Right Dorsalis Pedis] Pulse Rate [ Right Radial] Respiratory 17 17 16 Rate Respiratory Rate [ Generalized] Blood Pressure 102/75 121/74 121/77 O2 Sat by Pulse 97 98 97 Oximetry 08/23/17 08/23/17 08/23/17 00:15 00:30 00:45 Temperature Pulse Rate 86 85 86 Pulse Rate [ Apical] Pulse Rate [ From Monitor] Pulse Rate [ Left Dorsalis Pedis] Pulse Rate [ Left Radial] Pulse Rate [ Right Dorsalis Pedis] Pulse Rate [ Right Radial] Respiratory 16 19 15 Rate Respiratory Rate [ Generalized] Blood Pressure 130/72 126/79 126/77 O2 Sat by Pulse 100 98 98 Oximetry 08/23/17 08/23/17 08/23/17 01:00 01:15 01:30 Temperature Pulse Rate 86 86 85 Pulse Rate [ 89 Apical] Pulse Rate [ From Monitor] Pulse Rate [ Left Dorsalis Pedis] Pulse Rate [ 89 Left Radial] Pulse Rate [ 89 Right Dorsalis Pedis] Pulse Rate [ 89 Right Radial] Respiratory 12 18 16 Rate Respiratory Rate [ Generalized] Blood Pressure 113/78 121/80 128/82 O2 Sat by Pulse 100 99 98 Oximetry 08/23/17 08/23/17 08/23/17 01:45 02:00 02:15 Temperature Pulse Rate 87 88 92 H Pulse Rate [ Apical] Pulse Rate [ From Monitor] Pulse Rate [ Left Dorsalis Pedis] Pulse Rate [ Left Radial] Pulse Rate [ Right Dorsalis Pedis] Pulse Rate [ Right Radial] Respiratory 18 19 19 Rate Respiratory Rate [ Generalized] Blood Pressure 123/79 117/67 107/62 O2 Sat by Pulse 99 99 99 Oximetry 08/23/17 08/23/17 08/23/17 02:30 02:45 03:00 Temperature Pulse Rate 87 85 86 Pulse Rate [ Apical] Pulse Rate [ From Monitor] Pulse Rate [ Left Dorsalis Pedis] Pulse Rate [ Left Radial] Pulse Rate [ Right Dorsalis Pedis] Pulse Rate [ Right Radial] Respiratory 19 17 17 Rate Respiratory Rate [ Generalized] Blood Pressure 117/70 103/60 89/68 O2 Sat by Pulse 99 99 Oximetry 08/23/17 08/23/17 08/23/17 03:16 03:30 03:45 Temperature Pulse Rate 86 90 87 Pulse Rate [ Apical] Pulse Rate [ From Monitor] Pulse Rate [ Left Dorsalis Pedis] Pulse Rate [ Left Radial] Pulse Rate [ Right Dorsalis Pedis] Pulse Rate [ Right Radial] Respiratory 16 20 18 Rate Respiratory Rate [ Generalized] Blood Pressure 96/72 96/72 93/69 O2 Sat by Pulse 97 91 100 Oximetry 08/23/17 08/23/17 08/23/17 03:58 04:00 04:15 Temperature 98.6 F Pulse Rate 86 86 Pulse Rate [ Apical] Pulse Rate [ From Monitor] Pulse Rate [ Left Dorsalis Pedis] Pulse Rate [ Left Radial] Pulse Rate [ Right Dorsalis Pedis] Pulse Rate [ Right Radial] Respiratory 16 17 Rate Respiratory Rate [ Generalized] Blood Pressure 100/70 114/66 O2 Sat by Pulse 100 100 99 Oximetry 08/23/17 08/23/17 08/23/17 04:30 04:46 05:00 Temperature Pulse Rate 87 88 89 Pulse Rate [ 90 Apical] Pulse Rate [ 90 From Monitor] Pulse Rate [ 90 Left Dorsalis Pedis] Pulse Rate [ 90 Left Radial] Pulse Rate [ 90 Right Dorsalis Pedis] Pulse Rate [ 90 Right Radial] Respiratory 17 15 16 Rate Respiratory Rate [ Generalized] Blood Pressure 119/68 119/68 131/78 O2 Sat by Pulse 100 100 100 Oximetry 08/23/17 08/23/17 08/23/17 05:15 05:30 05:45 Temperature Pulse Rate 88 88 89 Pulse Rate [ Apical] Pulse Rate [ From Monitor] Pulse Rate [ Left Dorsalis Pedis] Pulse Rate [ Left Radial] Pulse Rate [ Right Dorsalis Pedis] Pulse Rate [ Right Radial] Respiratory 15 17 19 Rate Respiratory Rate [ Generalized] Blood Pressure 134/82 127/78 127/67 O2 Sat by Pulse 100 100 100 Oximetry 08/23/17 08/23/17 08/23/17 06:00 07:13 08:00 Temperature 98.2 F Pulse Rate 91 H Pulse Rate [ Apical] Pulse Rate [ From Monitor] Pulse Rate [ Left Dorsalis Pedis] Pulse Rate [ Left Radial] Pulse Rate [ Right Dorsalis Pedis] Pulse Rate [ Right Radial] Respiratory 18 Rate Respiratory Rate [ Generalized] Blood Pressure 127/78 O2 Sat by Pulse 100 100 Oximetry Constitutional: alert, lethargic, appears uncomfortable, other (not answering questions appropriately this am. No family at bedside) Eyes: non-icteric ENT: oropharynx moist, other (NG tube in place in right nare) Neck: supple, no lymphadenopathy, no JVD Effort: mildly labored Ascultation: Bilateral: diminished breath sounds, rhonchi (mild) Cardiovascular: regular rate and rhythm Gastrointestinal: absent bowel sounds, tender, other (abdominal incision with dressing noted) Extremities: no cyanosis, no edema, pink and warm Neurologic: other (sedated) CBC and BMP: 08/22/17 03:40 08/22/17 03:40 ABG, PT/INR, D-dimer: ABG POC ABG pH 7.481 (7.35-7.45) H 08/21/17 03:14 POC ABG pCO2 29.6 (35-45) L 08/21/17 03:14 POC ABG pO2 104 (80-105) 08/21/17 03:14 POC ABG HCO3 22.1 08/21/17 03:14 POC ABG Total CO2 23 08/21/17 03:14 POC ABG O2 Sat 98 08/21/17 03:14 PT/INR, D-dimer PT 16.0 Sec. (12.2-14.9) H 08/17/17 11:20 INR 1.29 (0.87-1.13) H 08/17/17 11:20 Abnormal lab findings: Abnormal Labs 08/08/17 08/08/17 08/09/17 21:23 21:31 11:19 WBC 15.7 H RBC 2.93 L Hgb 8.7 L Hct 26.8 L MCV RDW 19.2 H Plt Count Lymph % (Auto) [place] % (Auto) [place] # Seg Neutrophils % Seg Neuts % (Manual) Lymphocytes % (Manual) Monocytes % (Manual) Nucleated RBC % Seg Neutrophils # Seg Neutrophils # Man Lymphocytes # (Manual) Monocytes # (Manual) Eosinophils # (Manual) Basophils # (Manual) PT INR POC ABG pH 7.490 H POC ABG pCO2 POC ABG pO2 122 H Sodium Potassium Chloride Carbon Dioxide BUN Creatinine Glucose POC Glucose Calcium Phosphorus Magnesium AST ALT Alkaline Phosphatase Troponin T 0.133 H* C-Reactive Protein Total Protein Albumin HDL Cholesterol 26 L Miscellaneous Test Crossmatch 08/09/17 08/10/17 08/10/17 13:25 04:45 04:45 WBC 15.5 H RBC 2.97 L Hgb 8.9 L Hct 27.0 L MCV RDW 19.2 H Plt Count Lymph % (Auto) [place] % (Auto) [place] # Seg Neutrophils % Seg Neuts % (Manual) 73.0 H Lymphocytes % (Manual) 7.0 L Monocytes % (Manual) 14.0 H Nucleated RBC % Seg Neutrophils # Seg Neutrophils # Man 11.3 H Lymphocytes # (Manual) 1.1 L Monocytes # (Manual) 2.2 H Eosinophils # (Manual) Basophils # (Manual) 0.2 H PT INR POC ABG pH POC ABG pCO2 POC ABG pO2 Sodium Potassium 3.3 L Chloride 97.3 L Carbon Dioxide 21 L BUN 23 H Creatinine 6.5 H Glucose POC Glucose Calcium 7.3 L Phosphorus Magnesium AST ALT Alkaline Phosphatase 138 H Troponin T 0.132 H* C-Reactive Protein Total Protein 4.8 L Albumin 1.4 L HDL Cholesterol Miscellaneous Test Crossmatch 08/11/17 08/11/17 08/12/17 04:00 04:00 05:50 WBC 19.3 H RBC 3.10 L Hgb 9.5 L Hct 28.2 L MCV RDW 19.2 H Plt Count 463 H Lymph % (Auto) 7.5 L [place] % (Auto) 14.6 H [place] # 2.8 H Seg Neutrophils % 77.0 H Seg Neuts % (Manual) Lymphocytes % (Manual) Monocytes % (Manual) Nucleated RBC % Seg Neutrophils # 14.8 H Seg Neutrophils # Man Lymphocytes # (Manual) Monocytes # (Manual) Eosinophils # (Manual) Basophils # (Manual) PT INR POC ABG pH POC ABG pCO2 POC ABG pO2 Sodium 136 L 136 L Potassium 3.3 L Chloride 96.3 L 96.6 L Carbon Dioxide BUN 26 H 26 H Creatinine 6.4 H 6.2 H Glucose 135 H 133 H POC Glucose Calcium 8.2 L Phosphorus Magnesium 1.30 L AST ALT Alkaline Phosphatase 139 H Troponin T C-Reactive Protein Total Protein 5.5 L Albumin 1.7 L HDL Cholesterol Miscellaneous Test Crossmatch 08/12/17 08/12/17 08/12/17 05:50 05:50 05:50 WBC 20.1 H RBC 3.06 L Hgb 9.3 L Hct 27.9 L MCV RDW 18.4 H Plt Count 471 H Lymph % (Auto) [place] % (Auto) [place] # Seg Neutrophils % Seg Neuts % (Manual) 85.0 H Lymphocytes % (Manual) 8.0 L Monocytes % (Manual) Nucleated RBC % Seg Neutrophils # Seg Neutrophils # Man 17.1 H Lymphocytes # (Manual) Monocytes # (Manual) 1.0 H Eosinophils # (Manual) Basophils # (Manual) PT 15.2 H INR 1.14 H POC ABG pH POC ABG pCO2 POC ABG pO2 Sodium Potassium Chloride Carbon Dioxide BUN Creatinine Glucose POC Glucose Calcium Phosphorus Magnesium AST ALT Alkaline Phosphatase Troponin T C-Reactive Protein 28.90 H Total Protein Albumin HDL Cholesterol Miscellaneous Test Crossmatch 08/12/17 08/13/17 08/13/17 16:23 06:14 06:14 WBC 21.8 H RBC 3.11 L Hgb 9.4 L Hct 28.2 L MCV RDW 18.2 H Plt Count 492 H Lymph % (Auto) [place] % (Auto) [place] # Seg Neutrophils % Seg Neuts % (Manual) 73.0 H Lymphocytes % (Manual) 2.0 L Monocytes % (Manual) 15 H Nucleated RBC % Seg Neutrophils # Seg Neutrophils # Man 15.9 H Lymphocytes # (Manual) 0.4 L Monocytes # (Manual) 2.4 H Eosinophils # (Manual) Basophils # (Manual) PT INR POC ABG pH POC ABG pCO2 POC ABG pO2 Sodium Potassium Chloride 96.2 L Carbon Dioxide BUN 28 H Creatinine 5.6 H Glucose 114 H POC Glucose Calcium Phosphorus Magnesium AST ALT Alkaline Phosphatase Troponin T C-Reactive Protein 26.10 H Total Protein Albumin HDL Cholesterol Miscellaneous Test Crossmatch 08/13/17 08/14/17 08/14/17 16:39 04:00 04:00 WBC 22.1 H RBC 3.25 L Hgb 9.9 L Hct 29.5 L MCV RDW 17.9 H Plt Count 525 H Lymph % (Auto) [place] % (Auto) [place] # Seg Neutrophils % Seg Neuts % (Manual) 74.0 H Lymphocytes % (Manual) 8.0 L Monocytes % (Manual) 12.0 H Nucleated RBC % Seg Neutrophils # Seg Neutrophils # Man 16.4 H Lymphocytes # (Manual) Monocytes # (Manual) 2.7 H Eosinophils # (Manual) Basophils # (Manual) PT INR POC ABG pH POC ABG pCO2 POC ABG pO2 Sodium 134 L Potassium 3.3 L Chloride 93.3 L Carbon Dioxide BUN 27 H Creatinine 6.0 H Glucose 152 H POC Glucose 151 H Calcium Phosphorus Magnesium AST ALT Alkaline Phosphatase Troponin T C-Reactive Protein Total Protein Albumin HDL Cholesterol Miscellaneous Test Crossmatch 08/15/17 08/16/17 08/16/17 09:10 09:50 09:50 WBC 31.1 H RBC 3.21 L Hgb 9.6 L Hct 29.3 L MCV RDW 18.1 H Plt Count 642 H Lymph % (Auto) [place] % (Auto) [place] # Seg Neutrophils % Seg Neuts % (Manual) 74.0 H Lymphocytes % (Manual) 4.0 L Monocytes % (Manual) 9.0 H Nucleated RBC % Seg Neutrophils # Seg Neutrophils # Man 23.0 H Lymphocytes # (Manual) Monocytes # (Manual) 2.8 H Eosinophils # (Manual) Basophils # (Manual) PT INR POC ABG pH POC ABG pCO2 POC ABG pO2 Sodium 136 L 136 L Potassium 3.5 L Chloride 97.6 L 94.9 L Carbon Dioxide BUN 27 H 28 H Creatinine 5.6 H 5.5 H Glucose 117 H 103 H POC Glucose Calcium Phosphorus Magnesium AST ALT Alkaline Phosphatase 137 H Troponin T C-Reactive Protein Total Protein 5.4 L Albumin 1.5 L HDL Cholesterol Miscellaneous Test Crossmatch 08/16/17 08/17/17 08/17/17 09:50 05:00 06:26 WBC RBC Hgb Hct MCV RDW Plt Count Lymph % (Auto) [place] % (Auto) [place] # Seg Neutrophils % Seg Neuts % (Manual) Lymphocytes % (Manual) Monocytes % (Manual) Nucleated RBC % Seg Neutrophils # Seg Neutrophils # Man Lymphocytes # (Manual) Monocytes # (Manual) Eosinophils # (Manual) Basophils # (Manual) PT INR POC ABG pH POC ABG pCO2 POC ABG pO2 Sodium 134 L Potassium 3.0 L Chloride 97.8 L Carbon Dioxide BUN 30 H Creatinine 5.3 H Glucose 147 H POC Glucose 165 H Calcium 7.5 L Phosphorus Magnesium AST ALT Alkaline Phosphatase Troponin T C-Reactive Protein 32.30 H Total Protein Albumin HDL Cholesterol Miscellaneous Test Crossmatch 08/17/17 08/17/17 08/17/17 10:56 11:20 11:20 WBC 39.1 H RBC 3.10 L Hgb 9.2 L Hct 28.6 L MCV RDW 18.3 H Plt Count 580 H Lymph % (Auto) [place] % (Auto) [place] # Seg Neutrophils % Seg Neuts % (Manual) 89.5 H Lymphocytes % (Manual) 3.5 L Monocytes % (Manual) Nucleated RBC % Seg Neutrophils # Seg Neutrophils # Man 35.0 H Lymphocytes # (Manual) Monocytes # (Manual) 2.5 H Eosinophils # (Manual) Basophils # (Manual) 0.2 H PT INR POC ABG pH 7.464 H POC ABG pCO2 34.1 L POC ABG pO2 75 L Sodium Potassium Chloride Carbon Dioxide BUN Creatinine Glucose POC Glucose Calcium Phosphorus Magnesium AST ALT Alkaline Phosphatase Troponin T C-Reactive Protein Total Protein Albumin HDL Cholesterol Miscellaneous Test Flexitest 1 H Crossmatch 08/17/17 08/17/17 08/17/17 11:20 16:57 20:20 WBC 34.4 H RBC 2.81 L Hgb 8.4 L Hct 26.0 L MCV RDW 17.8 H Plt Count 455 H Lymph % (Auto) [place] % (Auto) [place] # Seg Neutrophils % Seg Neuts % (Manual) Lymphocytes % (Manual) 3.5 L Monocytes % (Manual) Nucleated RBC % 5.0 H Seg Neutrophils # Seg Neutrophils # Man 16.5 H Lymphocytes # (Manual) Monocytes # (Manual) 1.0 H Eosinophils # (Manual) Basophils # (Manual) PT 16.0 H INR 1.29 H POC ABG pH POC ABG pCO2 POC ABG pO2 Sodium 135 L Potassium 2.9 L* Chloride Carbon Dioxide 20 L BUN 32 H Creatinine 5.4 H Glucose 129 H POC Glucose Calcium 7.5 L Phosphorus Magnesium 1.50 L AST 85 H ALT Alkaline Phosphatase Troponin T C-Reactive Protein Total Protein 4.0 L D Albumin 1.6 L HDL Cholesterol Miscellaneous Test Crossmatch 08/17/17 08/17/17 08/18/17 20:54 23:47 04:26 WBC RBC Hgb Hct MCV RDW Plt Count Lymph % (Auto) [place] % (Auto) [place] # Seg Neutrophils % Seg Neuts % (Manual) Lymphocytes % (Manual) Monocytes % (Manual) Nucleated RBC % Seg Neutrophils # Seg Neutrophils # Man Lymphocytes # (Manual) Monocytes # (Manual) Eosinophils # (Manual) Basophils # (Manual) PT INR POC ABG pH 7.557 H POC ABG pCO2 23.1 L 29.0 L POC ABG pO2 187 H 148 H Sodium Potassium Chloride Carbon Dioxide BUN Creatinine Glucose POC Glucose 188 H Calcium Phosphorus Magnesium AST ALT Alkaline Phosphatase Troponin T C-Reactive Protein Total Protein Albumin HDL Cholesterol Miscellaneous Test Crossmatch 08/18/17 08/18/17 08/18/17 05:51 11:44 17:07 WBC RBC Hgb Hct MCV RDW Plt Count Lymph % (Auto) [place] % (Auto) [place] # Seg Neutrophils % Seg Neuts % (Manual) Lymphocytes % (Manual) Monocytes % (Manual) Nucleated RBC % Seg Neutrophils # Seg Neutrophils # Man Lymphocytes # (Manual) Monocytes # (Manual) Eosinophils # (Manual) Basophils # (Manual) PT INR POC ABG pH POC ABG pCO2 POC ABG pO2 Sodium Potassium Chloride Carbon Dioxide BUN Creatinine Glucose POC Glucose 202 H 195 H 182 H Calcium Phosphorus Magnesium AST ALT Alkaline Phosphatase Troponin T C-Reactive Protein Total Protein Albumin HDL Cholesterol Miscellaneous Test Crossmatch 08/18/17 08/18/17 08/18/17 23:45 Unknown Unknown WBC 39.0 H RBC 2.84 L Hgb 8.4 L Hct 26.5 L MCV RDW 18.0 H Plt Count 476 H Lymph % (Auto) [place] % (Auto) [place] # Seg Neutrophils % Seg Neuts % (Manual) Lymphocytes % (Manual) 7.0 L Monocytes % (Manual) 10.0 H Nucleated RBC % 3.0 H Seg Neutrophils # Seg Neutrophils # Man 15.6 H Lymphocytes # (Manual) Monocytes # (Manual) 3.9 H Eosinophils # (Manual) Basophils # (Manual) PT INR POC ABG pH POC ABG pCO2 POC ABG pO2 Sodium Potassium Chloride Carbon Dioxide 19 L BUN 34 H Creatinine 5.6 H Glucose 201 H POC Glucose 163 H Calcium 7.8 L Phosphorus 1.90 L D Magnesium 1.60 L AST ALT Alkaline Phosphatase Troponin T C-Reactive Protein Total Protein Albumin HDL Cholesterol Miscellaneous Test Crossmatch 08/19/17 08/19/17 08/19/17 04:18 05:00 05:00 WBC 40.0 H RBC 2.46 L Hgb 7.3 L Hct 22.6 L MCV RDW 18.1 H Plt Count Lymph % (Auto) [place] % (Auto) [place] # Seg Neutrophils % Seg Neuts % (Manual) Lymphocytes % (Manual) 8.0 L Monocytes % (Manual) Nucleated RBC % 2.0 H Seg Neutrophils # Seg Neutrophils # Man 16.4 H Lymphocytes # (Manual) Monocytes # (Manual) 1.2 H Eosinophils # (Manual) 1.2 H Basophils # (Manual) PT INR POC ABG pH 7.463 H POC ABG pCO2 29.7 L POC ABG pO2 134 H Sodium Potassium 5.1 H D Chloride Carbon Dioxide 20 L BUN 40 H Creatinine 5.3 H Glucose 128 H POC Glucose Calcium 7.8 L Phosphorus 1.90 L Magnesium AST ALT Alkaline Phosphatase Troponin T C-Reactive Protein Total Protein Albumin HDL Cholesterol Miscellaneous Test Crossmatch 08/19/17 08/19/17 08/19/17 05:19 07:37 09:52 WBC 45.0 H* RBC 2.50 L Hgb 7.5 L Hct 24.5 L MCV 98 H RDW 18.4 H Plt Count Lymph % (Auto) [place] % (Auto) [place] # Seg Neutrophils % Seg Neuts % (Manual) 81.5 H Lymphocytes % (Manual) 4.0 L Monocytes % (Manual) Nucleated RBC % 1.0 H Seg Neutrophils # Seg Neutrophils # Man 36.7 H Lymphocytes # (Manual) Monocytes # (Manual) Eosinophils # (Manual) Basophils # (Manual) PT INR POC ABG pH POC ABG pCO2 POC ABG pO2 Sodium Potassium Chloride Carbon Dioxide BUN Creatinine Glucose POC Glucose 142 H Calcium Phosphorus Magnesium AST ALT Alkaline Phosphatase Troponin T C-Reactive Protein 34.20 H Total Protein Albumin HDL Cholesterol Miscellaneous Test Crossmatch 08/19/17 08/19/17 08/20/17 11:16 18:12 00:35 WBC RBC Hgb Hct MCV RDW Plt Count Lymph % (Auto) [place] % (Auto) [place] # Seg Neutrophils % Seg Neuts % (Manual) Lymphocytes % (Manual) Monocytes % (Manual) Nucleated RBC % Seg Neutrophils # Seg Neutrophils # Man Lymphocytes # (Manual) Monocytes # (Manual) Eosinophils # (Manual) Basophils # (Manual) PT INR POC ABG pH POC ABG pCO2 POC ABG pO2 Sodium Potassium Chloride Carbon Dioxide BUN Creatinine Glucose POC Glucose 143 H 137 H 164 H Calcium Phosphorus Magnesium AST ALT Alkaline Phosphatase Troponin T C-Reactive Protein Total Protein Albumin HDL Cholesterol Miscellaneous Test Crossmatch 08/20/17 08/20/17 08/20/17 03:20 03:20 04:00 WBC 48.0 H* RBC 2.55 L Hgb 7.6 L Hct 23.4 L MCV RDW 18.4 H Plt Count Lymph % (Auto) [place] % (Auto) [place] # Seg Neutrophils % Seg Neuts % (Manual) 90.0 H Lymphocytes % (Manual) 3.0 L Monocytes % (Manual) Nucleated RBC % Seg Neutrophils # Seg Neutrophils # Man 43.2 H Lymphocytes # (Manual) Monocytes # (Manual) 1.4 H Eosinophils # (Manual) 0.5 H Basophils # (Manual) PT INR POC ABG pH 7.499 H POC ABG pCO2 29.1 L POC ABG pO2 Sodium 135 L Potassium Chloride Carbon Dioxide BUN 28 H Creatinine 4.0 H Glucose 140 H POC Glucose Calcium 8.0 L Phosphorus 1.70 L Magnesium 1.60 L AST ALT Alkaline Phosphatase Troponin T C-Reactive Protein Total Protein Albumin HDL Cholesterol Miscellaneous Test Crossmatch 08/20/17 08/20/17 08/20/17 05:02 12:05 13:12 WBC RBC Hgb Hct MCV RDW Plt Count Lymph % (Auto) [place] % (Auto) [place] # Seg Neutrophils % Seg Neuts % (Manual) Lymphocytes % (Manual) Monocytes % (Manual) Nucleated RBC % Seg Neutrophils # Seg Neutrophils # Man Lymphocytes # (Manual) Monocytes # (Manual) Eosinophils # (Manual) Basophils # (Manual) PT INR POC ABG pH 7.537 H POC ABG pCO2 27.9 L POC ABG pO2 79 L Sodium Potassium Chloride Carbon Dioxide BUN Creatinine Glucose POC Glucose 158 H 203 H Calcium Phosphorus Magnesium AST ALT Alkaline Phosphatase Troponin T C-Reactive Protein Total Protein Albumin HDL Cholesterol Miscellaneous Test Crossmatch 08/20/17 08/21/17 08/21/17 17:13 00:47 03:14 WBC RBC Hgb Hct MCV RDW Plt Count Lymph % (Auto) [place] % (Auto) [place] # Seg Neutrophils % Seg Neuts % (Manual) Lymphocytes % (Manual) Monocytes % (Manual) Nucleated RBC % Seg Neutrophils # Seg Neutrophils # Man Lymphocytes # (Manual) Monocytes # (Manual) Eosinophils # (Manual) Basophils # (Manual) PT INR POC ABG pH 7.481 H POC ABG pCO2 29.6 L POC ABG pO2 Sodium Potassium Chloride Carbon Dioxide BUN Creatinine Glucose POC Glucose 188 H 109 H Calcium Phosphorus Magnesium AST ALT Alkaline Phosphatase Troponin T C-Reactive Protein Total Protein Albumin HDL Cholesterol Miscellaneous Test Crossmatch 08/21/17 08/21/17 08/21/17 05:05 06:50 06:50 WBC 44.7 H* RBC 2.41 L Hgb 7.1 L Hct 22.1 L MCV RDW 18.3 H Plt Count Lymph % (Auto) [place] % (Auto) [place] # Seg Neutrophils % Seg Neuts % (Manual) 89.0 H Lymphocytes % (Manual) 0 L Monocytes % (Manual) Nucleated RBC % 1.0 H Seg Neutrophils # Seg Neutrophils # Man 39.8 H Lymphocytes # (Manual) 0.0 L Monocytes # (Manual) 1.3 H Eosinophils # (Manual) Basophils # (Manual) PT INR POC ABG pH POC ABG pCO2 POC ABG pO2 Sodium 135 L Potassium Chloride Carbon Dioxide BUN 39 H Creatinine 4.4 H Glucose 147 H POC Glucose 166 H Calcium 8.1 L Phosphorus Magnesium AST ALT < 5 L Alkaline Phosphatase 164 H Troponin T C-Reactive Protein Total Protein 4.7 L Albumin 1.4 L HDL Cholesterol Miscellaneous Test Crossmatch 08/21/17 08/21/17 08/21/17 08:00 12:21 17:02 WBC RBC Hgb Hct MCV RDW Plt Count Lymph % (Auto) [place] % (Auto) [place] # Seg Neutrophils % Seg Neuts % (Manual) Lymphocytes % (Manual) Monocytes % (Manual) Nucleated RBC % Seg Neutrophils # Seg Neutrophils # Man Lymphocytes # (Manual) Monocytes # (Manual) Eosinophils # (Manual) Basophils # (Manual) PT INR POC ABG pH POC ABG pCO2 POC ABG pO2 Sodium Potassium Chloride Carbon Dioxide BUN Creatinine Glucose POC Glucose 147 H 135 H Calcium Phosphorus Magnesium AST ALT Alkaline Phosphatase Troponin T C-Reactive Protein Total Protein Albumin HDL Cholesterol Miscellaneous Test Crossmatch See Detail 08/21/17 08/22/17 08/22/17 23:38 03:40 03:40 WBC 42.5 H* RBC 2.88 L Hgb 8.5 L Hct 26.3 L MCV RDW 17.9 H Plt Count Lymph % (Auto) [place] % (Auto) [place] # Seg Neutrophils % Seg Neuts % (Manual) Lymphocytes % (Manual) 5.0 L Monocytes % (Manual) Nucleated RBC % Seg Neutrophils # Seg Neutrophils # Man 19.6 H Lymphocytes # (Manual) Monocytes # (Manual) 2.6 H Eosinophils # (Manual) Basophils # (Manual) PT INR POC ABG pH POC ABG pCO2 POC ABG pO2 Sodium Potassium 3.3 L D Chloride Carbon Dioxide BUN 27 H Creatinine 2.9 H Glucose 144 H POC Glucose 251 H Calcium 8.0 L Phosphorus 2.40 L Magnesium AST ALT Alkaline Phosphatase Troponin T C-Reactive Protein Total Protein Albumin HDL Cholesterol Miscellaneous Test Crossmatch 08/22/17 08/22/17 08/22/17 06:37 11:25 16:25 WBC RBC Hgb Hct MCV RDW Plt Count Lymph % (Auto) [place] % (Auto) [place] # Seg Neutrophils % Seg Neuts % (Manual) Lymphocytes % (Manual) Monocytes % (Manual) Nucleated RBC % Seg Neutrophils # Seg Neutrophils # Man Lymphocytes # (Manual) Monocytes # (Manual) Eosinophils # (Manual) Basophils # (Manual) PT INR POC ABG pH POC ABG pCO2 POC ABG pO2 Sodium Potassium Chloride Carbon Dioxide BUN Creatinine Glucose POC Glucose 152 H 175 H Calcium Phosphorus Magnesium AST ALT Alkaline Phosphatase Troponin T C-Reactive Protein 30.70 H Total Protein Albumin HDL Cholesterol Miscellaneous Test Crossmatch 08/22/17 08/22/17 08/23/17 17:56 23:03 05:36 WBC RBC Hgb Hct MCV RDW Plt Count Lymph % (Auto) [place] % (Auto) [place] # Seg Neutrophils % Seg Neuts % (Manual) Lymphocytes % (Manual) Monocytes % (Manual) Nucleated RBC % Seg Neutrophils # Seg Neutrophils # Man Lymphocytes # (Manual) Monocytes # (Manual) Eosinophils # (Manual) Basophils # (Manual) PT INR POC ABG pH POC ABG pCO2 POC ABG pO2 Sodium Potassium Chloride Carbon Dioxide BUN Creatinine Glucose POC Glucose 232 H 192 H 206 H Calcium Phosphorus Magnesium AST ALT Alkaline Phosphatase Troponin T C-Reactive Protein Total Protein Albumin HDL Cholesterol Miscellaneous Test Crossmatch
--- NOTE | 2017-08-23 09:14 | Progress Note ---
Assessment and Plan - Patient Problems (1) ESRD (end stage renal disease) on dialysis Current Visit: Yes Status: Acute Plan to address problem: Patient was switched from PD to hemodialysis. Continue HD, MWF schedule. Patient is on TPN. (2) Hyperkalemia Current Visit: Yes Status: Acute Plan to address problem: Improved with hemodialysis. (3) Anemia Current Visit: No Status: Chronic Qualifiers: Anemia type: due to chronic kidney disease Iron deficiency anemia type: I Vitamin B12 deficiency anemia type: V Folate deficiency anemia type: F Bone marrow failure anemia type: B Hemolytic anemia type: H Other causes of anemia: O Chronic kidney disease stage: on chronic dialysis Qualified Code(s ): N18.6 - End stage renal disease; D63.1 - Anemia in chronic kidney disease; Z99.2 - Dependence on renal dialysis (4) Hypotension Current Visit: Yes Status: Chronic Qualifiers: Hypotension type: H Trimester: T Plan to address problem: On IV levophed and Vasopressin. (5) Leukocytosis Current Visit: Yes Status: Acute Qualifiers: Leukocytosis type: unspecified Qualified Code(s): D72.829 - Elevated white blood cell count, unspecified Plan to address problem: Followed by ID and Heme-Onc. Suspected peritonitis. S/p removal of PD catheter. (6) Acute respiratory failure with hypoxemia Current Visit: Yes Status: Acute (7) Sepsis Current Visit: Yes Status: Acute Qualifiers: Sepsis type: S Subjective Date of service: 08/23/17 Principal diagnosis: /anemia, poor oral intake. Interval history: Patient was seen and examined at the bedside. Objective - Vital Signs Vital signs: Vital Signs - 12hr 08/22/17 08/22/17 08/22/17 21:16 21:30 21:46 Temperature Pulse Rate 87 85 87 Pulse Rate [ Apical] Pulse Rate [ From Monitor] Pulse Rate [ Left Dorsalis Pedis] Pulse Rate [ Left Radial] Pulse Rate [ Right Dorsalis Pedis] Pulse Rate [ Right Radial] Respiratory 16 17 18 Rate Respiratory Rate [ Generalized] Blood Pressure 97/70 100/69 104/75 O2 Sat by Pulse 100 100 100 Oximetry 08/22/17 08/22/17 08/22/17 21:54 21:55 21:57 Temperature Pulse Rate 84 84 Pulse Rate [ Apical] Pulse Rate [ From Monitor] Pulse Rate [ Left Dorsalis Pedis] Pulse Rate [ Left Radial] Pulse Rate [ Right Dorsalis Pedis] Pulse Rate [ Right Radial] Respiratory 17 Rate Respiratory 17 Rate [ Generalized] Blood Pressure 115/67 O2 Sat by Pulse 98 Oximetry 08/22/17 08/22/17 08/22/17 22:00 22:15 22:30 Temperature Pulse Rate 85 84 86 Pulse Rate [ Apical] Pulse Rate [ From Monitor] Pulse Rate [ Left Dorsalis Pedis] Pulse Rate [ Left Radial] Pulse Rate [ Right Dorsalis Pedis] Pulse Rate [ Right Radial] Respiratory 20 15 18 Rate Respiratory Rate [ Generalized] Blood Pressure 115/74 113/69 121/75 O2 Sat by Pulse 100 98 100 Oximetry 08/22/17 08/22/17 08/22/17 22:45 23:00 23:16 Temperature Pulse Rate 85 85 84 Pulse Rate [ Apical] Pulse Rate [ From Monitor] Pulse Rate [ Left Dorsalis Pedis] Pulse Rate [ Left Radial] Pulse Rate [ Right Dorsalis Pedis] Pulse Rate [ Right Radial] Respiratory 16 17 17 Rate Respiratory Rate [ Generalized] Blood Pressure 110/74 102/75 105/72 O2 Sat by Pulse 98 98 Oximetry 08/22/17 08/22/17 08/23/17 23:30 23:45 00:00 Temperature 98.8 F Pulse Rate 85 85 84 Pulse Rate [ Apical] Pulse Rate [ From Monitor] Pulse Rate [ Left Dorsalis Pedis] Pulse Rate [ Left Radial] Pulse Rate [ Right Dorsalis Pedis] Pulse Rate [ Right Radial] Respiratory 17 17 16 Rate Respiratory Rate [ Generalized] Blood Pressure 102/75 121/74 121/77 O2 Sat by Pulse 97 98 97 Oximetry 08/23/17 08/23/17 08/23/17 00:15 00:30 00:45 Temperature Pulse Rate 86 85 86 Pulse Rate [ Apical] Pulse Rate [ From Monitor] Pulse Rate [ Left Dorsalis Pedis] Pulse Rate [ Left Radial] Pulse Rate [ Right Dorsalis Pedis] Pulse Rate [ Right Radial] Respiratory 16 19 15 Rate Respiratory Rate [ Generalized] Blood Pressure 130/72 126/79 126/77 O2 Sat by Pulse 100 98 98 Oximetry 08/23/17 08/23/17 08/23/17 01:00 01:15 01:30 Temperature Pulse Rate 86 86 85 Pulse Rate [ 89 Apical] Pulse Rate [ From Monitor] Pulse Rate [ Left Dorsalis Pedis] Pulse Rate [ 89 Left Radial] Pulse Rate [ 89 Right Dorsalis Pedis] Pulse Rate [ 89 Right Radial] Respiratory 12 18 16 Rate Respiratory Rate [ Generalized] Blood Pressure 113/78 121/80 128/82 O2 Sat by Pulse 100 99 98 Oximetry 08/23/17 08/23/17 08/23/17 01:45 02:00 02:15 Temperature Pulse Rate 87 88 92 H Pulse Rate [ Apical] Pulse Rate [ From Monitor] Pulse Rate [ Left Dorsalis Pedis] Pulse Rate [ Left Radial] Pulse Rate [ Right Dorsalis Pedis] Pulse Rate [ Right Radial] Respiratory 18 19 19 Rate Respiratory Rate [ Generalized] Blood Pressure 123/79 117/67 107/62 O2 Sat by Pulse 99 99 99 Oximetry 08/23/17 08/23/17 08/23/17 02:30 02:45 03:00 Temperature Pulse Rate 87 85 86 Pulse Rate [ Apical] Pulse Rate [ From Monitor] Pulse Rate [ Left Dorsalis Pedis] Pulse Rate [ Left Radial] Pulse Rate [ Right Dorsalis Pedis] Pulse Rate [ Right Radial] Respiratory 19 17 17 Rate Respiratory Rate [ Generalized] Blood Pressure 117/70 103/60 89/68 O2 Sat by Pulse 99 99 Oximetry 08/23/17 08/23/17 08/23/17 03:16 03:30 03:45 Temperature Pulse Rate 86 90 87 Pulse Rate [ Apical] Pulse Rate [ From Monitor] Pulse Rate [ Left Dorsalis Pedis] Pulse Rate [ Left Radial] Pulse Rate [ Right Dorsalis Pedis] Pulse Rate [ Right Radial] Respiratory 16 20 18 Rate Respiratory Rate [ Generalized] Blood Pressure 96/72 96/72 93/69 O2 Sat by Pulse 97 91 100 Oximetry 08/23/17 08/23/17 08/23/17 03:58 04:00 04:15 Temperature 98.6 F Pulse Rate 86 86 Pulse Rate [ Apical] Pulse Rate [ From Monitor] Pulse Rate [ Left Dorsalis Pedis] Pulse Rate [ Left Radial] Pulse Rate [ Right Dorsalis Pedis] Pulse Rate [ Right Radial] Respiratory 16 17 Rate Respiratory Rate [ Generalized] Blood Pressure 100/70 114/66 O2 Sat by Pulse 100 100 99 Oximetry 08/23/17 08/23/17 08/23/17 04:30 04:46 05:00 Temperature Pulse Rate 87 88 89 Pulse Rate [ 90 Apical] Pulse Rate [ 90 From Monitor] Pulse Rate [ 90 Left Dorsalis Pedis] Pulse Rate [ 90 Left Radial] Pulse Rate [ 90 Right Dorsalis Pedis] Pulse Rate [ 90 Right Radial] Respiratory 17 15 16 Rate Respiratory Rate [ Generalized] Blood Pressure 119/68 119/68 131/78 O2 Sat by Pulse 100 100 100 Oximetry 08/23/17 08/23/17 08/23/17 05:15 05:30 05:45 Temperature Pulse Rate 88 88 89 Pulse Rate [ Apical] Pulse Rate [ From Monitor] Pulse Rate [ Left Dorsalis Pedis] Pulse Rate [ Left Radial] Pulse Rate [ Right Dorsalis Pedis] Pulse Rate [ Right Radial] Respiratory 15 17 19 Rate Respiratory Rate [ Generalized] Blood Pressure 134/82 127/78 127/67 O2 Sat by Pulse 100 100 100 Oximetry 08/23/17 08/23/17 08/23/17 06:00 07:13 08:00 Temperature 98.2 F Pulse Rate 91 H Pulse Rate [ Apical] Pulse Rate [ From Monitor] Pulse Rate [ Left Dorsalis Pedis] Pulse Rate [ Left Radial] Pulse Rate [ Right Dorsalis Pedis] Pulse Rate [ Right Radial] Respiratory 18 Rate Respiratory Rate [ Generalized] Blood Pressure 127/78 O2 Sat by Pulse 100 100 Oximetry - General Appearance General appearance: well-developed, appears stated age, obese, other (right groin hemodialysis catheter) EENT: ATNC, PERRL, hearing intact Neck: supple Respiratory: Present: Clear to Ascultation Cardiology: regular, S1S2, no murmurs Gastrointestinal: normoactive bowel sounds, tenderness, obese, other (PEG tube noted) Integumentary: no rash Neurologic: other (able to follow some command) Musculoskeletal: other (trace pedal edema noted) Psychiatric: cooperative - Lab 08/22/17 03:40 08/23/17 08:50 Most recent lab results Calcium 8.0 mg/dL (8.4-10.2) L 08/22/17 03:40 Phosphorus 2.40 mg/dL (2.5-4.5) L 08/22/17 03:40 Magnesium 2.00 mg/dL (1.7-2.3) 08/22/17 03:40
[2017-08-23 09:25] LABS: BUN/Creatinine Ratio 14.84; Calcium 8.6 mg/dL (8.4-10.2); Chloride 107.1 mmol/L (98-107); Magnesium 2.4 mg/dL (1.7-2.3); Phosphorous 4.2 mg/dL (2.5-4.5); Potassium 4.5 mmol/L (3.6-5.0)
--- NOTE | 2017-08-23 09:54 | Progress Note ---
Assessment and Plan Assessment: 1) Sepsis with septic shock: better-decreased pressors requirement; source bowel obstruction / suspect ?gastric perforation. -CRP=28-->32-->34 -->30 -WBC=39 --> 45 --> 48 -->44K -procalcitonin=1.3 2) Bowel obstruction / suspect ?gastric perforation ? peritonitis -S/P Exlap, G-tube placement, EGD, abdominal washout and removal of PD -OR findings - bowel obstruction due to entanglement of PD cath, abscess cavity in LUQ and ? suspect perforation of unclear location -Repeat CT - improved ascitis 3) CA-UTI: chronic ivan exchanged every 4 weeks and ureteral stents in place which are exchanged every 6 months ? urine cultures still pending should r/o MDR bacteria 4) Paraplegia 5) ESRD on PD - no evidence of peritonitis, wbc count 2. [facility] and Diphteroids on peritoneal fluid likely contaminants. 6) Recent pancreatitis 7) Penicillin allergy-has taken keflex w/o problems Plan: -continue meropenem day 11, fluconazole day 8 and vancomycin day 8 - total 14 -consider PT -will discuss with renal removal of femoral cath in near future Thank you Dr Davis for your consultation, will follow up with you. Ramya Lang MD Infectious Diseases Specialist [facility] M [phone] O [phone] Subjective Date of service: 08/23/17 Principal diagnosis: /anemia, poor oral intake. Interval history: Remains critically ill, still on levophed at 8 mcg. No fever. Extubated on venti mask Microbiology: Blood cultures: 08/08 neg 08/12 neg 08/16 neg 08/20 neg Urine cultures: 08/08 10-100K skin grace Respiratory cultures: Wound cultures: Stool cultures: Other: 08/08 peritoneal fluid + [facility]/Diphteroids Current Antimicrobials: 08/13 meropenem 08/16 fluconazole 08/16 vancomycin Previous Antimicrobials: 08/10 levaquin Objective - Exam Narrative Exam: General appearance: sedated on the vent in NAD Eyes: anicteric sclerae, moist conjunctivae; no lid-lag; PERRLA HENT: Atraumatic;+ ETT +NGT Neck: Trachea midline; supple, no thyromegaly or lymphadenopathy Lungs: coarse BS moreno CV: RRR, no murmurs Abdomen: soft, midline surgical wound with kelli a drain covered with surg dressings Gtube Extremities: + peripheral edema + leg ulcer Skin: Normal temperature, turgor and texture; no rash, ulcers or subcutaneous nodules Psych: sedated. Neuro: sedated Lines: Right vascath femoral / Right IJ Nair 08/16 - Constitutional Vitals: Vital Signs Temp Pulse Resp BP Pulse Ox 98.2 F 91 H 18 127/78 100 08/23/17 08:00 08/23/17 06:00 08/23/17 06:00 08/23/17 06:00 08/23/17 07:13 Temperature -Last 24 Hours Temperature 98.2 F Temperature 98.6 F Temperature 98.8 F Temperature 98.9 F Temperature 97.9 F Temperature 98.3 F - Labs CBC & Chem 7: 08/22/17 03:40 08/23/17 08:50 Labs: Abnormal lab results 08/22/17 08/22/17 08/22/17 Range/Units 11:25 16:25 17:56 Chloride (98-107) mmol/L BUN (7-17) mg/dL Creatinine (0.7-1.2) mg/dL Glucose (65-100) mg/dL POC Glucose 175 H 232 H (70-105) Magnesium (1.7-2.3) mg/dL C-Reactive Protein 30.70 H (0.00-1.30) mg/dL 08/22/17 08/23/17 08/23/17 Range/Units 23:03 05:36 08:50 Chloride 107.1 H (98-107) mmol/L BUN 49 H (7-17) mg/dL Creatinine 3.3 H (0.7-1.2) mg/dL Glucose 172 H (65-100) mg/dL POC Glucose 192 H 206 H (70-105) Magnesium 2.40 H (1.7-2.3) mg/dL C-Reactive Protein (0.00-1.30) mg/dL
[2017-08-23] MEDS: DILAUDID IV PRN ×3 (10:21→16:45)
[2017-08-23] MEDS: DIFLUCAN 200 MG/100 ML BAG IV SCH (10:25)
[2017-08-23] MEDS: HEPARIN IV PRN (13:20)
--- NOTE | 2017-08-23 13:54 | Progress Note ---
Assessment and Plan 62 y.o. F s/p ex-lap, lysis of adhesions, G tube placement, MERVIN drain placement: POD 5 gastric perforation: poor overall nutritional status making the defect difficult to re-seal despite intra-luminal decompression and external drainage. Mervin becoming bilious with increasing output. Monitor output and color. - more likely small perforation is healing. Once MERVIN drainage is less and in about 5 more days, may attempt another methylene blue test. Prolonged healing anticipated due to poor nutrition and steroids. Rec Vit A supplementation -continue PPI -merrom, diflucan and vanco -TPN for nutrition Resp: s/p extubation. sepsis: likely due intra-abdominal process, hypotension requiring pressor support. ID following. f/u rpt cultures continue abx, and abdominal drainage. wean pressors as tolerated. renal failure: HD per renal. will defer to renal for dialysis and fluid/ electrolyte management. Sacral wound and RLE wound: wound care following. GI proph: PPI DVT proph: rec restarting heparin subq - Patient Problems (1) SBO (small bowel obstruction) Current Visit: Yes Status: Acute Subjective Narrative: Pt awake and more alert. She is speaking however does not answer all questions. She denies pain. Afebrile G tube: 195cc bilious MERVIN = 400 cc bilious (per recorded in computer) NG: minimal bilous Objective Vital Signs - 12hr 08/23/17 08/23/17 08/23/17 02:00 02:15 02:30 Temperature Pulse Rate 88 92 H 87 Pulse Rate [ Apical] Pulse Rate [ From Monitor] Pulse Rate [ Left Dorsalis Pedis] Pulse Rate [ Left Radial] Pulse Rate [ Right Dorsalis Pedis] Pulse Rate [ Right Radial] Respiratory 19 19 19 Rate Respiratory Rate [ Generalized] Blood Pressure 117/67 107/62 117/70 O2 Sat by Pulse 99 99 99 Oximetry O2 Sat by Pulse Oximetry [ Anterior Bilateral Upper Lobe] O2 Sat by Pulse Oximetry [ Bilateral Throughout] 08/23/17 08/23/17 08/23/17 02:45 03:00 03:16 Temperature Pulse Rate 85 86 86 Pulse Rate [ Apical] Pulse Rate [ From Monitor] Pulse Rate [ Left Dorsalis Pedis] Pulse Rate [ Left Radial] Pulse Rate [ Right Dorsalis Pedis] Pulse Rate [ Right Radial] Respiratory 17 17 16 Rate Respiratory Rate [ Generalized] Blood Pressure 103/60 89/68 96/72 O2 Sat by Pulse 99 97 Oximetry O2 Sat by Pulse Oximetry [ Anterior Bilateral Upper Lobe] O2 Sat by Pulse Oximetry [ Bilateral Throughout] 08/23/17 08/23/17 08/23/17 03:30 03:45 03:58 Temperature Pulse Rate 90 87 Pulse Rate [ Apical] Pulse Rate [ From Monitor] Pulse Rate [ Left Dorsalis Pedis] Pulse Rate [ Left Radial] Pulse Rate [ Right Dorsalis Pedis] Pulse Rate [ Right Radial] Respiratory 20 18 Rate Respiratory Rate [ Generalized] Blood Pressure 96/72 93/69 O2 Sat by Pulse 91 100 100 Oximetry O2 Sat by Pulse Oximetry [ Anterior Bilateral Upper Lobe] O2 Sat by Pulse Oximetry [ Bilateral Throughout] 08/23/17 08/23/17 08/23/17 04:00 04:15 04:30 Temperature 98.6 F Pulse Rate 86 86 87 Pulse Rate [ Apical] Pulse Rate [ From Monitor] Pulse Rate [ Left Dorsalis Pedis] Pulse Rate [ Left Radial] Pulse Rate [ Right Dorsalis Pedis] Pulse Rate [ Right Radial] Respiratory 16 17 17 Rate Respiratory Rate [ Generalized] Blood Pressure 100/70 114/66 119/68 O2 Sat by Pulse 100 99 100 Oximetry O2 Sat by Pulse Oximetry [ Anterior Bilateral Upper Lobe] O2 Sat by Pulse Oximetry [ Bilateral Throughout] 08/23/17 08/23/17 08/23/17 04:46 05:00 05:15 Temperature Pulse Rate 88 89 88 Pulse Rate [ 90 Apical] Pulse Rate [ 90 From Monitor] Pulse Rate [ 90 Left Dorsalis Pedis] Pulse Rate [ 90 Left Radial] Pulse Rate [ 90 Right Dorsalis Pedis] Pulse Rate [ 90 Right Radial] Respiratory 15 16 15 Rate Respiratory Rate [ Generalized] Blood Pressure 119/68 131/78 134/82 O2 Sat by Pulse 100 100 100 Oximetry O2 Sat by Pulse Oximetry [ Anterior Bilateral Upper Lobe] O2 Sat by Pulse Oximetry [ Bilateral Throughout] 08/23/17 08/23/17 08/23/17 05:30 05:45 06:00 Temperature Pulse Rate 88 89 91 H Pulse Rate [ Apical] Pulse Rate [ From Monitor] Pulse Rate [ Left Dorsalis Pedis] Pulse Rate [ Left Radial] Pulse Rate [ Right Dorsalis Pedis] Pulse Rate [ Right Radial] Respiratory 17 19 18 Rate Respiratory Rate [ Generalized] Blood Pressure 127/78 127/67 127/78 O2 Sat by Pulse 100 100 100 Oximetry O2 Sat by Pulse Oximetry [ Anterior Bilateral Upper Lobe] O2 Sat by Pulse Oximetry [ Bilateral Throughout] 08/23/17 08/23/17 08/23/17 07:13 08:00 10:00 Temperature 98.2 F 98.2 F Pulse Rate 104 H 95 H Pulse Rate [ 104 H Apical] Pulse Rate [ 101 H From Monitor] Pulse Rate [ Left Dorsalis Pedis] Pulse Rate [ 105 H Left Radial] Pulse Rate [ Right Dorsalis Pedis] Pulse Rate [ 107 H Right Radial] Respiratory 25 H 16 Rate Respiratory 25 H Rate [ Generalized] Blood Pressure 113/80 O2 Sat by Pulse 100 97 Oximetry O2 Sat by Pulse Oximetry [ Anterior Bilateral Upper Lobe] O2 Sat by Pulse 97 Oximetry [ Bilateral Throughout] 08/23/17 08/23/17 08/23/17 10:15 10:21 10:30 Temperature Pulse Rate 93 H 97 H Pulse Rate [ Apical] Pulse Rate [ From Monitor] Pulse Rate [ Left Dorsalis Pedis] Pulse Rate [ Left Radial] Pulse Rate [ Right Dorsalis Pedis] Pulse Rate [ Right Radial] Respiratory 25 H Rate Respiratory Rate [ Generalized] Blood Pressure 105/73 106/70 O2 Sat by Pulse Oximetry O2 Sat by Pulse Oximetry [ Anterior Bilateral Upper Lobe] O2 Sat by Pulse Oximetry [ Bilateral Throughout] 08/23/17 08/23/17 08/23/17 10:45 11:00 11:15 Temperature Pulse Rate 94 H 96 H 94 H Pulse Rate [ Apical] Pulse Rate [ From Monitor] Pulse Rate [ Left Dorsalis Pedis] Pulse Rate [ Left Radial] Pulse Rate [ Right Dorsalis Pedis] Pulse Rate [ Right Radial] Respiratory Rate Respiratory Rate [ Generalized] Blood Pressure 127/52 125/94 116/69 O2 Sat by Pulse Oximetry O2 Sat by Pulse Oximetry [ Anterior Bilateral Upper Lobe] O2 Sat by Pulse Oximetry [ Bilateral Throughout] 08/23/17 08/23/17 08/23/17 11:30 11:45 12:00 Temperature 98.1 F Pulse Rate 92 H 98 H 98 H Pulse Rate [ Apical] Pulse Rate [ From Monitor] Pulse Rate [ Left Dorsalis Pedis] Pulse Rate [ Left Radial] Pulse Rate [ Right Dorsalis Pedis] Pulse Rate [ Right Radial] Respiratory Rate Respiratory Rate [ Generalized] Blood Pressure 113/67 100/66 102/65 O2 Sat by Pulse Oximetry O2 Sat by Pulse Oximetry [ Anterior Bilateral Upper Lobe] O2 Sat by Pulse Oximetry [ Bilateral Throughout] 08/23/17 08/23/17 08/23/17 12:15 12:30 12:45 Temperature Pulse Rate 95 H 104 H 94 H Pulse Rate [ Apical] Pulse Rate [ From Monitor] Pulse Rate [ Left Dorsalis Pedis] Pulse Rate [ Left Radial] Pulse Rate [ Right Dorsalis Pedis] Pulse Rate [ Right Radial] Respiratory Rate Respiratory Rate [ Generalized] Blood Pressure 102/77 95/73 96/66 O2 Sat by Pulse Oximetry O2 Sat by Pulse Oximetry [ Anterior Bilateral Upper Lobe] O2 Sat by Pulse Oximetry [ Bilateral Throughout] 08/23/17 08/23/17 13:00 13:10 Temperature 98.1 F Pulse Rate 96 H 103 H Pulse Rate [ Apical] Pulse Rate [ From Monitor] Pulse Rate [ Left Dorsalis Pedis] Pulse Rate [ Left Radial] Pulse Rate [ Right Dorsalis Pedis] Pulse Rate [ Right Radial] Respiratory 18 Rate Respiratory Rate [ Generalized] Blood Pressure 101/65 104/62 O2 Sat by Pulse Oximetry O2 Sat by Pulse 100 Oximetry [ Anterior Bilateral Upper Lobe] O2 Sat by Pulse 100 Oximetry [ Bilateral Throughout] - General physical appearance well developed, obese - Respiratory normal expansion, normal respiratory effort - Abdomen soft, tender, bowel sounds normal, other (MERVIN bilious, midline incision cdi. kelli in place. G tube : bilious Dressing at PD cath: CDI) - Genitourinary other (ivan ) - Musculoskeletal other (minimal arm movements ) - Labs 08/22/17 03:40 08/23/17 08:50 Diabetes panel 08/23/17 Range/Units 08:50 Sodium 145 (137-145) mmol/L Potassium 4.5 D (3.6-5.0) mmol/L Chloride 107.1 H (98-107) mmol/L Carbon Dioxide 23 (22-30) mmol/L BUN 49 H (7-17) mg/dL Creatinine 3.3 H (0.7-1.2) mg/dL Glucose 172 H (65-100) mg/dL Calcium 8.6 (8.4-10.2) mg/dL Calcium panel 08/23/17 Range/Units 08:50 Calcium 8.6 (8.4-10.2) mg/dL Phosphorus 4.20 D (2.5-4.5) mg/dL Pituitary panel 08/23/17 Range/Units 08:50 Sodium 145 (137-145) mmol/L Potassium 4.5 D (3.6-5.0) mmol/L Chloride 107.1 H (98-107) mmol/L Carbon Dioxide 23 (22-30) mmol/L BUN 49 H (7-17) mg/dL Creatinine 3.3 H (0.7-1.2) mg/dL Glucose 172 H (65-100) mg/dL Calcium 8.6 (8.4-10.2) mg/dL Adrenal panel 08/23/17 Range/Units 08:50 Sodium 145 (137-145) mmol/L Potassium 4.5 D (3.6-5.0) mmol/L Chloride 107.1 H (98-107) mmol/L Carbon Dioxide 23 (22-30) mmol/L BUN 49 H (7-17) mg/dL Creatinine 3.3 H (0.7-1.2) mg/dL Glucose 172 H (65-100) mg/dL Calcium 8.6 (8.4-10.2) mg/dL
[2017-08-23] MEDS: MERREM 1,000 MG in NACL 0.9% 100 ML IV SCH (14:48)
[2017-08-23] MEDS ORDERED: TPN ADULT 1,800 ML IV SCH (20:00)
[2017-08-23] MEDS ORDERED: INTRALIPID 20% 250 ML IV SCH (20:00)
--- NOTE | 2017-08-23 22:35 | Progress Note ---
Assessment and Plan - Patient Problems (1) Leukocytosis Current Visit: Yes Status: Acute Qualifiers: Leukocytosis type: L Plan to address problem: See notes above. make sure that PD access is clean also. see notes. Probably infection from the infected PD catheter. (2) Anemia Current Visit: Yes Status: Acute Qualifiers: Anemia type: A Iron deficiency anemia type: I Vitamin B12 deficiency anemia type: V Folate deficiency anemia type: F Bone marrow failure anemia type: B Hemolytic anemia type: H Other causes of anemia: O Chronic kidney disease stage: C Plan to address problem: see notes , monitor labs,. see notes above. continue to monitor labs with you. Subjective Date of service: 08/23/17 Principal diagnosis: /anemia, poor oral intake. Interval history: Patient seen today/examined, labs reviewed, case d/w she, and family.complaints of abdominal pain. Patient resting in bed in the ICU, post vascular procedure. labs reviewed, Reactive thrombocytosis, anemia of CD, leukocytosis from infection vs inflamatory process. Patient seen/examined, in bed in the ICU, on the vent post surgery.Labs reviewed , notes reviewed. will continue to monitor labs/patient with you. Replacement transfusion, if /when indicated. patient seen/examined, SBP75, on pressors., lethargic, on the vent, labs reviewed, wbc 39,000 Patient seen/examined, case reviewed, d/w her sister at the bed side. Patient seen/examined, labs reviewed, notes reviewed. severe septic shock from infected PD catheter The high wbc is all infection related. H?H low, and may get replacement transfusion with the next HD. Prognosis remain quite poor. Patient seen/examined, extubated, now on V Mask. labs reviewed. patient seen/examined, resting in bed, still some what lethargic . labs reviewed. Patient seen/examined, resting in bed., some difficulty with breathing./ lethargic. Objective - Constitutional Vitals: Vital Signs - 12hr 08/23/17 08/23/17 08/23/17 10:45 10:51 11:00 Temperature Pulse Rate 94 H 96 H Respiratory 27 H Rate Blood Pressure 127/52 125/94 O2 Sat by Pulse Oximetry O2 Sat by Pulse Oximetry [ Anterior Bilateral Upper Lobe] O2 Sat by Pulse Oximetry [ Bilateral Throughout] 08/23/17 08/23/17 08/23/17 11:15 11:30 11:45 Temperature Pulse Rate 94 H 92 H 98 H Respiratory Rate Blood Pressure 116/69 113/67 100/66 O2 Sat by Pulse Oximetry O2 Sat by Pulse Oximetry [ Anterior Bilateral Upper Lobe] O2 Sat by Pulse Oximetry [ Bilateral Throughout] 08/23/17 08/23/17 08/23/17 12:00 12:15 12:30 Temperature 98.1 F Pulse Rate 98 H 95 H 104 H Respiratory Rate Blood Pressure 102/65 102/77 95/73 O2 Sat by Pulse Oximetry O2 Sat by Pulse Oximetry [ Anterior Bilateral Upper Lobe] O2 Sat by Pulse Oximetry [ Bilateral Throughout] 08/23/17 08/23/17 08/23/17 12:45 13:00 13:10 Temperature 98.1 F Pulse Rate 94 H 96 H 103 H Respiratory 18 Rate Blood Pressure 96/66 101/65 104/62 O2 Sat by Pulse Oximetry O2 Sat by Pulse 100 Oximetry [ Anterior Bilateral Upper Lobe] O2 Sat by Pulse 100 Oximetry [ Bilateral Throughout] 08/23/17 08/23/17 08/23/17 13:20 13:50 16:00 Temperature 98.3 F Pulse Rate Respiratory 23 25 H Rate Blood Pressure O2 Sat by Pulse Oximetry O2 Sat by Pulse Oximetry [ Anterior Bilateral Upper Lobe] O2 Sat by Pulse Oximetry [ Bilateral Throughout] 08/23/17 08/23/17 08/23/17 16:45 19:30 20:00 Temperature 98.9 F Pulse Rate Respiratory 26 H Rate Blood Pressure O2 Sat by Pulse 100 Oximetry O2 Sat by Pulse Oximetry [ Anterior Bilateral Upper Lobe] O2 Sat by Pulse Oximetry [ Bilateral Throughout] General appearance: Present: mild distress, well-nourished - EENT Eyes: PERRL, EOM intact ENT: hearing intact, clear oral mucosa Ears: bilateral: normal - Neck Neck: supple, normal ROM - Respiratory Respiratory: bilateral: diminished - Breasts Breasts: deferred - Cardiovascular Rhythm: regular Heart Sounds: Present: S1 & S2. Absent: gallop, rub Extremities: pulses intact, No edema, normal color, Full ROM - Gastrointestinal General gastrointestinal: Present: soft, non-tender, non-distended, normal bowel sounds - Genitourinary Female genitourinary: deferred - Integumentary Integumentary: clear, warm, dry - Musculoskeletal Musculoskeletal: 1, strength equal bilaterally - Neurologic Neurologic: moves all extremities - Labs CBC & Chem 7: 08/22/17 03:40 08/23/17 08:50 Labs: Abnormal lab results 08/22/17 08/23/17 08/23/17 Range/Units 23:03 05:36 08:50 Chloride 107.1 H (98-107) mmol/L BUN 49 H (7-17) mg/dL Creatinine 3.3 H (0.7-1.2) mg/dL Glucose 172 H (65-100) mg/dL POC Glucose 192 H 206 H (70-105) Magnesium 2.40 H (1.7-2.3) mg/dL 08/23/17 08/23/17 Range/Units 12:14 17:21 Chloride (98-107) mmol/L BUN (7-17) mg/dL Creatinine (0.7-1.2) mg/dL Glucose (65-100) mg/dL POC Glucose 238 H 226 H (70-105) Magnesium (1.7-2.3) mg/dL
[2017-08-24 07:05] LABS: Hematocrit 25.9 % (30.3-42.9); Hemoglobin 8.4 gm/dl (10.1-14.3); Mean Corpuscular HGB Conc 33 % (30-34); Mean Corpuscular Hemoglobin 30 pg (28-32); Mean Corpuscular Volume 91 fl (79-97); Platelet Count 333 K/mm3 (140-440); Red Blood Count 2.86 M/mm3 (3.65-5.03); Red Cell Distribution Width 17.9 % (13.2-15.2)
[2017-08-24] MEDS: LEVOPHED 8 MG in NACL 0.9% 250ML 242 ML IV SCH (07:15)
[2017-08-24 07:18] LABS: White Blood Count 34.2 K/mm3 (4.5-11.0)
[2017-08-24] MEDS: PROVENTIL IH PRN ×2 (07:25→21:49)
[2017-08-24 09:22] LABS: Anisocytosis 1+; Basophils % (Manual) 0 % (0.0-1.8); Blastocytes % (Manual) 0 %; Eosinophils % (Manual) 0 % (0.0-4.3); Hypochromasia 1+; Ovalocytes Few; Polychromasia Few; Smudge Cells Rare; Target Cells 1+; Total Cells Counted Percent 8.5
[2017-08-24 09:23] LABS: Diff Status Complete
[2017-08-24] MEDS: DIFLUCAN 200 MG/100 ML BAG IV SCH (09:27)
[2017-08-24] MEDS: PROTONIX IV SCH ×2 (09:27→23:46)
[2017-08-24 10:09] LABS: BUN/Creatinine Ratio 18.4; Calcium 8.5 mg/dL (8.4-10.2); Chloride 99.9 mmol/L (98-107); Magnesium 2.2 mg/dL (1.7-2.3); Phosphorous 4.5 mg/dL (2.5-4.5); Potassium 4.3 mmol/L (3.6-5.0)
[2017-08-24] MEDS: DILAUDID IV PRN (10:29)
[2017-08-24] MEDS ORDERED: VANCOMYCIN/NS 1 GM/250 ML 1 GM/250 ML BAG IV ONE (11:00)
--- NOTE | 2017-08-24 11:37 | Progress Note ---
Assessment and Plan Assessment and plan: --Septic shock. Pressor dependent --Sepsis secondary to peritonitis /catheter related complex UTI present on admission .continue current antibiotics per ID --Acute hypoxic respiratory failure. s/p extubation --End-stage renal disease , PD catheter removed, Vas-Cath placement, hemodialysis per schedule --Anemia secondary to end-stage renal disease; received 1 unit of PRBC was to monitor --Hypophosphatemia/hypomagnesemia ;corrected --Urinary retention/ ? Infected stents. Urology evaluated the patient --Bowel obstruction / status post exploratory lap with removal of PD catheter as a cause of obstruction. --Peritonitis /small bowel obstruction , s/p G-tube placement, abdominal washout , removal of PD catheter. surgery following. --Ulcerative esophagitis/small gastric ulcer on EGD. Continue current medications --Severe Protein calorie malnutrition., Continue TPN and supportive care --Leukocytosis. Secondary to peritonitis, complex complicated UTI, ID and hematology following --DVT prophylaxis; SCDs Consults and recommendations noted Plan of care discussed with the patient's nurse Critical care time 31 minutes The high probability of a clinically significant, sudden or life threatening deterioration of the [hemodynamic, respiratory, renal, gastrointestinal] system( s) required my full and direct attention, intervention and personal management. The aggregate critical care time was [31] minutes. This time is in addition to time spent performing reported procedures but includes the following: [x] Data Review and interpretation [x] Patient assessment and monitoring of vital signs [x] Documentation [x] Medication orders and management History Interval history: An seen and examined's morning medical records reviewed Feels slightly better, remains on pressors Alert awake oriented 3 Hospitalist Physical - Constitutional Vitals: Temp Pulse Resp BP Pulse Ox 97.8 F 109 H 29 H 117/71 98 08/24/17 08:10 08/24/17 08:00 08/24/17 10:29 08/24/17 08:00 08/24/17 08:00 General appearance: Present: no acute distress, well-nourished - EENT Eyes: Present: PERRL, EOM intact - Neck Neck: Present: supple, normal ROM - Respiratory Respiratory effort: normal Respiratory: bilateral: diminished, negative: rales, rhonchi, wheezing - Cardiovascular Rhythm: regular Heart Sounds: Present: S1 & S2 - Extremities Extremities: no ischemia Extremity abnormal: edema - Abdominal General gastrointestinal: soft, non-tender, absent bowel sounds, other (drain in place) - Integumentary Integumentary: Present: clear, warm - Psychiatric Psychiatric: appropriate mood/affect, cooperative - Neurologic Neurologic: moves all extremities Results - Labs CBC & Chem 7: 08/24/17 04:00 08/24/17 09:30 Labs: Laboratory Last Values WBC 34.2 K/mm3 (4.5-11.0) H 08/24/17 04:00 RBC 2.86 M/mm3 (3.65-5.03) L 08/24/17 04:00 Hgb 8.4 gm/dl (10.1-14.3) L 08/24/17 04:00 Hct 25.9 % (30.3-42.9) L 08/24/17 04:00 MCV 91 fl (79-97) 08/24/17 04:00 MCH 30 pg (28-32) 08/24/17 04:00 MCHC 33 % (30-34) 08/24/17 04:00 RDW 17.9 % (13.2-15.2) H 08/24/17 04:00 Plt Count 333 K/mm3 (140-440) 08/24/17 04:00 Lymph % (Auto) Beverage Steward 08/19/17 07:37 Barron % (Auto) Beverage Steward 08/19/17 07:37 Eos % (Auto) Beverage Steward 08/19/17 07:37 Baso % (Auto) Beverage Steward 08/19/17 07:37 Lymph # Beverage Steward 08/19/17 07:37 Barron # Beverage Steward 08/19/17 07:37 Eos # Beverage Steward 08/19/17 07:37 Baso # Beverage Steward 08/19/17 07:37 Add Manual Diff Complete 08/24/17 04:00 Total Counted 200 08/24/17 04:00 Seg Neutrophils % Beverage Steward 08/19/17 07:37 Seg Neuts % (Manual) 85.0 % (40.0-70.0) H 08/24/17 04:00 Band Neutrophils % 6.0 % 08/24/17 04:00 Lymphocytes % (Manual) 0.5 % (13.4-35.0) L 08/24/17 04:00 Reactive Lymphs % (Man) 0 % 08/24/17 04:00 Monocytes % (Manual) 7.0 % (0.0-7.3) 08/24/17 04:00 Eosinophils % (Manual) 0 % (0.0-4.3) 08/24/17 04:00 Basophils % (Manual) 0 % (0.0-1.8) 08/24/17 04:00 Metamyelocytes % 1.5 % 08/24/17 04:00 Myelocytes % 0 % 08/24/17 04:00 Promyelocytes % 0 % 08/24/17 04:00 Blast Cells % 0 % 08/24/17 04:00 Nucleated RBC % 1.0 % (0.0-0.9) H 08/24/17 04:00 Seg Neutrophils # Beverage Steward 08/19/17 07:37 Seg Neutrophils # Man 29.1 K/mm3 (1.8-7.7) H 08/24/17 04:00 Band Neutrophils # 2.1 K/mm3 08/24/17 04:00 Lymphocytes # (Manual) 0.2 K/mm3 (1.2-5.4) L 08/24/17 04:00 Abs React Lymphs (Man) 0.0 K/mm3 08/24/17 04:00 Monocytes # (Manual) 2.4 K/mm3 (0.0-0.8) H 08/24/17 04:00 Eosinophils # (Manual) 0.0 K/mm3 (0.0-0.4) 08/24/17 04:00 Basophils # (Manual) 0.0 K/mm3 (0.0-0.1) 08/24/17 04:00 Metamyelocytes # 0.5 K/mm3 08/24/17 04:00 Myelocytes # 0.0 K/mm3 08/24/17 04:00 Promyelocytes # 0.0 K/mm3 08/24/17 04:00 Blast Cells # 0.0 K/mm3 08/24/17 04:00 WBC Morphology Not Reportable 08/24/17 04:00 Hypersegmented Neuts Not Reportable 08/24/17 04:00 Hyposegmented Neuts Not Reportable 08/24/17 04:00 Hypogranular Neuts Not Reportable 08/24/17 04:00 Smudge Cells Rare 08/24/17 04:00 Toxic Granulation Not Reportable 08/24/17 04:00 Toxic Vacuolation Not Reportable 08/24/17 04:00 Dohle Bodies Not Reportable 08/24/17 04:00 Pelger-Huet Anomaly Not Reportable 08/24/17 04:00 Ariel Rods Not Reportable 08/24/17 04:00 Platelet Estimate Appears normal 08/24/17 04:00 Clumped Platelets Not Reportable 08/24/17 04:00 Plt Clumps, EDTA Not Reportable 08/24/17 04:00 Large Platelets Not Reportable 08/24/17 04:00 Giant Platelets Not Reportable 08/24/17 04:00 Platelet Satelliting Not Reportable 08/24/17 04:00 Plt Morphology Comment Not Reportable 08/24/17 04:00 RBC Morphology Not Reportable 08/24/17 04:00 Dimorphic RBCs Not Reportable 08/24/17 04:00 Polychromasia Few 08/24/17 04:00 Hypochromasia 1+ 08/24/17 04:00 Poikilocytosis Not Reportable 08/24/17 04:00 Anisocytosis 1+ 08/24/17 04:00 Microcytosis Not Reportable 08/24/17 04:00 Macrocytosis Not Reportable 08/24/17 04:00 Spherocytes Not Reportable 08/24/17 04:00 Pappenheimer Bodies Not Reportable 08/24/17 04:00 Sickle Cells Not Reportable 08/24/17 04:00 Target Cells 1+ 08/24/17 04:00 Tear Drop Cells Not Reportable 08/24/17 04:00 Ovalocytes Few 08/24/17 04:00 Stomatocytes Few 08/20/17 03:20 Helmet Cells Not Reportable 08/24/17 04:00 [place] Bodies Not Reportable 08/24/17 04:00 [place] Rings Not Reportable 08/24/17 04:00 [place] Cells Not Reportable 08/24/17 04:00 Bite Cells Not Reportable 08/24/17 04:00 Crenated Cell Not Reportable 08/24/17 04:00 Elliptocytes Not Reportable 08/24/17 04:00 Acanthocytes (Spur) Not Reportable 08/24/17 04:00 Rouleaux Not Reportable 08/24/17 04:00 Hemoglobin C Crystals Not Reportable 08/24/17 04:00 Schistocytes Not Reportable 08/24/17 04:00 Malaria parasites Not Reportable 08/24/17 04:00 Jovanni Bodies Not Reportable 08/24/17 04:00 Hem Pathologist Commnt No 08/24/17 04:00 PT 16.0 Sec. (12.2-14.9) H 08/17/17 11:20 INR 1.29 (0.87-1.13) H 08/17/17 11:20 APTT 35.5 Sec. (24.2-36.6) 08/12/17 05:50 POC ABG pH 7.481 (7.35-7.45) H 08/21/17 03:14 POC ABG pCO2 29.6 (35-45) L 08/21/17 03:14 POC ABG pO2 104 (80-105) 08/21/17 03:14 POC ABG HCO3 22.1 08/21/17 03:14 POC ABG Total CO2 23 08/21/17 03:14 POC ABG O2 Sat 98 08/21/17 03:14 POC ABG Base Excess -1 08/21/17 03:14 VBG pH 7.462 (7.320-7.420) H 08/08/17 14:52 FiO2 30 % 08/21/17 03:14 Sodium 140 mmol/L (137-145) 08/24/17 09:30 Potassium 4.3 mmol/L (3.6-5.0) 08/24/17 09:30 Chloride 99.9 mmol/L (98-107) 08/24/17 09:30 Carbon Dioxide 24 mmol/L (22-30) 08/24/17 09:30 Anion Gap 20 mmol/L 08/24/17 09:30 BUN 46 mg/dL (7-17) H 08/24/17 09:30 Creatinine 2.5 mg/dL (0.7-1.2) H 08/24/17 09:30 Estimated GFR 24 ml/min 08/24/17 09:30 BUN/Creatinine Ratio 18.40 % 08/24/17 09:30 Glucose 176 mg/dL (65-100) H 08/24/17 09:30 POC Glucose 201 (70-105) H 08/24/17 05:06 Lactic Acid 1.60 mmol/L (0.7-2.0) 08/17/17 11:20 Calcium 8.5 mg/dL (8.4-10.2) 08/24/17 09:30 Phosphorus 4.50 mg/dL (2.5-4.5) 08/24/17 09:30 Magnesium 2.20 mg/dL (1.7-2.3) 08/24/17 09:30 Total Bilirubin 0.40 mg/dL (0.1-1.2) 08/21/17 06:50 Direct Bilirubin 0.2 mg/dL (0-0.2) 08/08/17 14:11 Indirect Bilirubin 0.3 mg/dL 08/08/17 14:11 AST 17 units/L (5-40) 08/21/17 06:50 ALT < 5 units/L (7-56) L 08/21/17 06:50 Alkaline Phosphatase 164 units/L (35-129) H 08/21/17 06:50 Ammonia 25.0 umol/L (25-60) 08/08/17 14:52 Troponin T 0.132 ng/mL (0.00-0.029) H* 08/09/17 13:25 C-Reactive Protein 30.70 mg/dL (0.00-1.30) H 08/22/17 16:25 NT-Pro-B Natriuret Pep 6156 pg/mL (0-900) H 08/08/17 14:11 Total Protein 4.7 g/dL (6.3-8.2) L 08/21/17 06:50 Albumin 1.4 g/dL (3.9-5) L 08/21/17 06:50 Albumin/Globulin Ratio 0.4 % 08/21/17 06:50 Triglycerides 62 mg/dL (2-149) 08/08/17 21:23 Cholesterol 91 mg/dL (50-199) 08/08/17 21:23 LDL Cholesterol Direct 53 mg/dL (50-130) 08/08/17 21:23 HDL Cholesterol 26 mg/dL (40-59) L 08/08/17 21:23 Cholesterol/HDL Ratio 3.50 % 08/08/17 21:23 Amylase 45 units/L (27-131) 08/16/17 09:50 Lipase 34 units/L (13-60) 08/16/17 09:50 TSH 6.580 mlU/mL (0.270-4.200) H 08/08/17 14:22 Free T4 1.46 ng/dL (0.76-1.46) 08/08/17 14:22 Total Cortisol 30.1 mcg/dL () 08/13/17 06:14 Urine Color Yellow (Yellow) 08/08/17 20:15 Urine Turbidity Turbid (Clear) 08/08/17 20:15 Urine pH 8.0 (5.0-7.0) H 08/08/17 20:15 Ur Specific [place] 1.015 (1.003-1.030) 08/08/17 20:15 Urine Protein 100 mg/dl mg/dL (Negative) 08/08/17 20:15 Urine Glucose (UA) Neg mg/dL (Negative) 08/08/17 20:15 Urine Ketones Neg mg/dL (Negative) 08/08/17 20:15 Urine Blood Mod (Negative) 08/08/17 20:15 Urine Nitrite Neg (Negative) 08/08/17 20:15 Urine Bilirubin Neg (Negative) 08/08/17 20:15 Urine Urobilinogen < 2.0 mg/dL (<2.0) 08/08/17 20:15 Ur Leukocyte Esterase Lg (Negative) 08/08/17 20:15 Urine WBC (Auto) 24.0 /HPF (0.0-6.0) H 08/08/17 20:15 Urine RBC (Auto) 3.0 /HPF (0.0-6.0) 08/08/17 20:15 U Epithel Cells (Auto) 3.0 /HPF (0-13.0) 08/08/17 20:15 Urine Bacteria (Auto) 4+ /HPF (Negative) 08/08/17 20:15 Urine Mucus 3+ /HPF 08/08/17 20:15 Fluid Type Peritoneal 08/08/17 18:18 Fluid Color Straw 08/08/17 18:18 Fluid Appearance Clear 08/08/17 18:18 Fluid pH 7.74 08/08/17 18:18 Fluid WBC 4 /mm3 08/08/17 18:18 Fluid RBC 1 /mm3 08/08/17 18:18 Fluid Seg Neutrophils 12 % 08/08/17 18:18 Fluid Lymphocytes 0 % 08/08/17 18:18 Fluid Reactive Lymphs 0 % 08/08/17 18:18 Fluid Monocytes 1 % 08/08/17 18:18 Fluid Eosinophils 0 % 08/08/17 18:18 Fluid Basophils 0 % 08/08/17 18:18 Fluid Glucose 315 mg/dL (40-70) H 08/08/17 18:18 Random Vancomycin 19.5 ug/mL (0-40.0) 08/22/17 03:40 Hep Bs Antigen Non-reactive (Negative) 08/22/17 03:40 Hepatitis C Antibody Non-reactive (NonReactive) 08/22/17 03:40 Miscellaneous Test Flexitest 1 H 08/17/17 11:20 Blood Type O POSITIVE 08/21/17 08:00 Antibody Screen Negative 08/21/17 08:00 Crossmatch See Detail 08/21/17 08:00
--- NOTE | 2017-08-24 12:08 | Progress Note ---
Assessment and Plan 62 y.o. F s/p ex-lap, lysis of adhesions, G tube placement, MERVIN drain placement: POD 6 gastric perforation: poor overall nutritional status making the defect difficult to re-seal despite intra-luminal decompression and external drainage. Mervin now brown/bilious. Record MERVIN output and G tube output in order to assess if she is adequately being decompressed. . Monitor output and color. Likely prolonged healing time of small gastric perforation. Keep NPO. No manipulation of NG or G or MERVIN. Keep NG to low wall sunction. Once MERVIN drainage is much less and appears serous, will retest for leak via methylene blue test (will likely be several days) Prolonged healing anticipated due to poor nutrition and steroids. Rec Vit A supplementation -continue PPI ID: Covering Gut grace 2/2 perforation: merrom, diflucan and vanco - per ID Leukocytosis improving -TPN for nutrition Resp: s/p extubation. Vent with humidfied O2. Rec. Chest PT. sepsis: likely due intra-abdominal process, hypotension requiring pressor support. ID following. f/u rpt cultures continue abx, and abdominal drainage. wean pressors as tolerated. Levo now at 6 renal failure: HD per renal. will defer to renal for dialysis and fluid/ electrolyte management. Sacral wound and RLE wound: wound care following. GI proph: PPI DVT proph: rec restarting heparin subq - Patient Problems (1) SBO (small bowel obstruction) Current Visit: Yes Status: Acute Subjective Narrative: Pt more awake and alert this am. She has been coughing and try to cough out mucous but has been unable to. Venti that has been humidified added to help keep moisture in mouth/throat to allow to her cough better. She denies pain. Daughter at bedside. outputs: NG minimal G tube: partially recorded: ~100cc thick bile MERVIN: partially recorded ~100+ brown./green fluid. Afebrile Objective Vital Signs - 12hr 08/24/17 08/24/17 08/24/17 00:16 00:30 00:45 Temperature Pulse Rate 100 H 97 H 99 H Pulse Rate [ Apical] Pulse Rate [ Bilateral Throughout] Pulse Rate [ From Monitor] Pulse Rate [ Left Dorsalis Pedis] Pulse Rate [ Left Radial] Pulse Rate [ Right Dorsalis Pedis] Pulse Rate [ Right Radial] Respiratory 16 16 16 Rate Respiratory Rate [Bilateral Throughout] Blood Pressure 138/82 136/84 136/84 O2 Sat by Pulse 100 99 100 Oximetry 08/24/17 08/24/17 08/24/17 01:00 01:16 01:30 Temperature Pulse Rate 103 H 98 H 98 H Pulse Rate [ Apical] Pulse Rate [ Bilateral Throughout] Pulse Rate [ From Monitor] Pulse Rate [ Left Dorsalis Pedis] Pulse Rate [ Left Radial] Pulse Rate [ Right Dorsalis Pedis] Pulse Rate [ Right Radial] Respiratory 17 17 13 Rate Respiratory Rate [Bilateral Throughout] Blood Pressure 127/79 136/84 125/66 O2 Sat by Pulse 99 100 100 Oximetry 08/24/17 08/24/17 08/24/17 01:46 02:00 02:16 Temperature Pulse Rate 93 H 96 H 98 H Pulse Rate [ Apical] Pulse Rate [ Bilateral Throughout] Pulse Rate [ From Monitor] Pulse Rate [ Left Dorsalis Pedis] Pulse Rate [ Left Radial] Pulse Rate [ Right Dorsalis Pedis] Pulse Rate [ Right Radial] Respiratory 13 18 18 Rate Respiratory Rate [Bilateral Throughout] Blood Pressure 127/79 125/66 147/88 O2 Sat by Pulse 100 100 100 Oximetry 08/24/17 08/24/17 08/24/17 02:30 02:46 02:59 Temperature 98 F Pulse Rate 98 H 96 H Pulse Rate [ Apical] Pulse Rate [ Bilateral Throughout] Pulse Rate [ From Monitor] Pulse Rate [ Left Dorsalis Pedis] Pulse Rate [ Left Radial] Pulse Rate [ Right Dorsalis Pedis] Pulse Rate [ Right Radial] Respiratory 18 16 Rate Respiratory Rate [Bilateral Throughout] Blood Pressure 147/88 140/85 O2 Sat by Pulse 100 100 Oximetry 08/24/17 08/24/17 08/24/17 03:00 03:15 03:16 Temperature Pulse Rate 99 H 107 H Pulse Rate [ 85 Apical] Pulse Rate [ Bilateral Throughout] Pulse Rate [ 85 From Monitor] Pulse Rate [ 85 Left Dorsalis Pedis] Pulse Rate [ 85 Left Radial] Pulse Rate [ 85 Right Dorsalis Pedis] Pulse Rate [ 85 Right Radial] Respiratory 18 24 22 Rate Respiratory Rate [Bilateral Throughout] Blood Pressure 154/98 154/98 O2 Sat by Pulse 100 96 100 Oximetry 08/24/17 08/24/17 08/24/17 03:30 03:46 04:00 Temperature Pulse Rate 98 H 103 H 104 H Pulse Rate [ Apical] Pulse Rate [ Bilateral Throughout] Pulse Rate [ From Monitor] Pulse Rate [ Left Dorsalis Pedis] Pulse Rate [ Left Radial] Pulse Rate [ Right Dorsalis Pedis] Pulse Rate [ Right Radial] Respiratory 18 23 26 H Rate Respiratory Rate [Bilateral Throughout] Blood Pressure 128/83 128/83 146/86 O2 Sat by Pulse 100 96 94 Oximetry 08/24/17 08/24/17 08/24/17 04:16 04:30 04:46 Temperature Pulse Rate 104 H 104 H 104 H Pulse Rate [ Apical] Pulse Rate [ Bilateral Throughout] Pulse Rate [ From Monitor] Pulse Rate [ Left Dorsalis Pedis] Pulse Rate [ Left Radial] Pulse Rate [ Right Dorsalis Pedis] Pulse Rate [ Right Radial] Respiratory 20 23 21 Rate Respiratory Rate [Bilateral Throughout] Blood Pressure 146/86 146/86 120/77 O2 Sat by Pulse 99 98 Oximetry 08/24/17 08/24/17 08/24/17 05:00 05:16 05:30 Temperature Pulse Rate 103 H 110 H 102 H Pulse Rate [ Apical] Pulse Rate [ Bilateral Throughout] Pulse Rate [ From Monitor] Pulse Rate [ Left Dorsalis Pedis] Pulse Rate [ Left Radial] Pulse Rate [ Right Dorsalis Pedis] Pulse Rate [ Right Radial] Respiratory 20 33 H 22 Rate Respiratory Rate [Bilateral Throughout] Blood Pressure 120/77 145/109 145/93 O2 Sat by Pulse 98 99 98 Oximetry 08/24/17 08/24/17 08/24/17 05:46 06:00 06:16 Temperature Pulse Rate 108 H 111 H 112 H Pulse Rate [ Apical] Pulse Rate [ Bilateral Throughout] Pulse Rate [ From Monitor] Pulse Rate [ Left Dorsalis Pedis] Pulse Rate [ Left Radial] Pulse Rate [ Right Dorsalis Pedis] Pulse Rate [ Right Radial] Respiratory 19 27 H 28 H Rate Respiratory Rate [Bilateral Throughout] Blood Pressure 145/93 146/93 146/93 O2 Sat by Pulse 100 95 96 Oximetry 08/24/17 08/24/17 08/24/17 06:30 06:46 07:00 Temperature Pulse Rate 112 H 114 H 115 H Pulse Rate [ Apical] Pulse Rate [ Bilateral Throughout] Pulse Rate [ From Monitor] Pulse Rate [ Left Dorsalis Pedis] Pulse Rate [ Left Radial] Pulse Rate [ Right Dorsalis Pedis] Pulse Rate [ Right Radial] Respiratory 26 H 24 27 H Rate Respiratory Rate [Bilateral Throughout] Blood Pressure 157/99 157/99 157/99 O2 Sat by Pulse 94 99 96 Oximetry 08/24/17 08/24/17 08/24/17 07:10 07:16 07:27 Temperature Pulse Rate 110 H Pulse Rate [ 113 H Apical] Pulse Rate [ 101 H Bilateral Throughout] Pulse Rate [ 113 H From Monitor] Pulse Rate [ Left Dorsalis Pedis] Pulse Rate [ Left Radial] Pulse Rate [ Right Dorsalis Pedis] Pulse Rate [ Right Radial] Respiratory 32 H 20 Rate Respiratory 27 H Rate [Bilateral Throughout] Blood Pressure 122/101 O2 Sat by Pulse 100 99 Oximetry 08/24/17 08/24/17 08/24/17 07:28 07:30 07:36 Temperature Pulse Rate 116 H Pulse Rate [ Apical] Pulse Rate [ 114 H Bilateral Throughout] Pulse Rate [ From Monitor] Pulse Rate [ Left Dorsalis Pedis] Pulse Rate [ Left Radial] Pulse Rate [ Right Dorsalis Pedis] Pulse Rate [ Right Radial] Respiratory 28 H Rate Respiratory 24 Rate [Bilateral Throughout] Blood Pressure 122/101 O2 Sat by Pulse 100 99 Oximetry 08/24/17 08/24/17 08/24/17 07:46 08:00 08:10 Temperature 97.8 F Pulse Rate 112 H 109 H Pulse Rate [ Apical] Pulse Rate [ Bilateral Throughout] Pulse Rate [ From Monitor] Pulse Rate [ Left Dorsalis Pedis] Pulse Rate [ Left Radial] Pulse Rate [ Right Dorsalis Pedis] Pulse Rate [ Right Radial] Respiratory 28 H 22 Rate Respiratory Rate [Bilateral Throughout] Blood Pressure 122/101 117/71 O2 Sat by Pulse 97 98 Oximetry 08/24/17 10:29 Temperature Pulse Rate Pulse Rate [ Apical] Pulse Rate [ Bilateral Throughout] Pulse Rate [ From Monitor] Pulse Rate [ Left Dorsalis Pedis] Pulse Rate [ Left Radial] Pulse Rate [ Right Dorsalis Pedis] Pulse Rate [ Right Radial] Respiratory 29 H Rate Respiratory Rate [Bilateral Throughout] Blood Pressure O2 Sat by Pulse Oximetry - General physical appearance no pain, obese - Respiratory normal expansion, normal respiratory effort, clear to auscultation, other ( crackles upper airway) - Abdomen soft, tender (upper abdomen ), bowel sounds hypoactive, not masses, not rebound , not guarding, not rigid, other (Prev PD cath site: packing removed. wound is cdi. 4cm x 3cm, healing. no drainage. irrigated and repacked. Midline incision: kelli in place. inferior portion of incision: yellow clear drainage. incision cleaned and res dressed. MERVIN and G tube in place. ) - Neurologic disoriented - Musculoskeletal other (+1 upper and lower ext. MS. ) - Psychiatric oriented to person - Labs 08/24/17 04:00 08/24/17 09:30 Diabetes panel 08/24/17 Range/Units 09:30 Sodium 140 (137-145) mmol/L Potassium 4.3 (3.6-5.0) mmol/L Chloride 99.9 (98-107) mmol/L Carbon Dioxide 24 (22-30) mmol/L BUN 46 H (7-17) mg/dL Creatinine 2.5 H (0.7-1.2) mg/dL Glucose 176 H (65-100) mg/dL Calcium 8.5 (8.4-10.2) mg/dL Calcium panel 08/24/17 Range/Units 09:30 Calcium 8.5 (8.4-10.2) mg/dL Phosphorus 4.50 (2.5-4.5) mg/dL Pituitary panel 08/24/17 Range/Units 09:30 Sodium 140 (137-145) mmol/L Potassium 4.3 (3.6-5.0) mmol/L Chloride 99.9 (98-107) mmol/L Carbon Dioxide 24 (22-30) mmol/L BUN 46 H (7-17) mg/dL Creatinine 2.5 H (0.7-1.2) mg/dL Glucose 176 H (65-100) mg/dL Calcium 8.5 (8.4-10.2) mg/dL Adrenal panel 08/24/17 Range/Units 09:30 Sodium 140 (137-145) mmol/L Potassium 4.3 (3.6-5.0) mmol/L Chloride 99.9 (98-107) mmol/L Carbon Dioxide 24 (22-30) mmol/L BUN 46 H (7-17) mg/dL Creatinine 2.5 H (0.7-1.2) mg/dL Glucose 176 H (65-100) mg/dL Calcium 8.5 (8.4-10.2) mg/dL
[2017-08-24] MEDS: MERREM 1,000 MG in NACL 0.9% 100 ML IV SCH (13:47)
--- NOTE | 2017-08-24 14:38 | Progress Note ---
Assessment and Plan Assessment: 1) Sepsis with septic shock: better-decreased pressors requirement; source bowel obstruction / suspect ?gastric perforation. -CRP=28-->32-->34 -->30 -WBC=48 -->44 -->34K -procalcitonin=1.3 2) Bowel obstruction / suspect ?gastric perforation ? peritonitis -S/P Exlap, G-tube placement, EGD, abdominal washout and removal of PD -OR findings - bowel obstruction due to entanglement of PD cath, abscess cavity in LUQ and ? suspect perforation of unclear location -Repeat CT - improved ascitis 3) CA-UTI: chronic ivan exchanged every 4 weeks and ureteral stents in place which are exchanged every 6 months ? urine cultures still pending should r/o MDR bacteria 4) Paraplegia 5) ESRD on PD - no evidence of peritonitis, wbc count 2. NAILER MACHINE and Diphteroids on peritoneal fluid likely contaminants. 6) Recent pancreatitis 7) Penicillin allergy-has taken keflex w/o problems Plan: -continue meropenem day 12 , fluconazole day 8 and vancomycin day 8 of -remove femoral cath in near future Thank you Dr Davis for your consultation, will follow up with you. Ramya Lang MD Infectious Diseases Specialist [facility] ([facility] M [phone] O [phone] Subjective Date of service: 08/24/17 Principal diagnosis: /anemia, poor oral intake. Interval history: More alert on ventimask, still on levophed at 2 mcg. No fever. Microbiology: Blood cultures: 08/08 neg 08/12 neg 08/16 neg 08/20 neg Urine cultures: 08/08 10-100K skin grace Respiratory cultures: Wound cultures: Stool cultures: Other: 08/08 peritoneal fluid + NAILER MACHINE/Diphteroids Current Antimicrobials: 08/13 meropenem 08/16 fluconazole 08/16 vancomycin Previous Antimicrobials: 08/10 levaquin Objective - Exam Narrative Exam: General appearance: somnolent on venti mask Eyes: anicteric sclerae, moist conjunctivae; no lid-lag; PERRLA HENT: Atraumatic;+venti mask Neck: Trachea midline; supple, no thyromegaly or lymphadenopathy Lungs: coarse BS moreno CV: RRR, no murmurs Abdomen: soft, midline surgical wound with kelli a drain covered with surg dressings Gtube Extremities: + peripheral edema + leg ulcer Skin: Normal temperature, turgor and texture; no rash, ulcers or subcutaneous nodules Psych: somnolent. Neuro: somnolent Lines: Right vascath femoral / Right IJ Nair 08/16 - Constitutional Vitals: Vital Signs Temp Pulse Resp BP Pulse Ox 98.2 F 93 H 17 102/60 99 08/24/17 12:00 08/24/17 13:30 08/24/17 13:30 08/24/17 13:30 08/24/17 13:30 Temperature -Last 24 Hours Temperature 98.2 F Temperature 97.8 F Temperature 98 F Temperature 98.1 F Temperature 98.9 F Temperature 98.3 F - Labs CBC & Chem 7: 08/24/17 04:00 08/24/17 09:30 Labs: Abnormal lab results 08/23/17 08/23/17 08/24/17 Range/Units 17:21 23:13 04:00 WBC 34.2 H (4.5-11.0) K/mm3 RBC 2.86 L (3.65-5.03) M/mm3 Hgb 8.4 L (10.1-14.3) gm/dl Hct 25.9 L (30.3-42.9) % RDW 17.9 H (13.2-15.2) % Seg Neuts % (Manual) 85.0 H (40.0-70.0) % Lymphocytes % (Manual) 0.5 L (13.4-35.0) % Nucleated RBC % 1.0 H (0.0-0.9) % Seg Neutrophils # Man 29.1 H (1.8-7.7) K/mm3 Lymphocytes # (Manual) 0.2 L (1.2-5.4) K/mm3 Monocytes # (Manual) 2.4 H (0.0-0.8) K/mm3 BUN (7-17) mg/dL Creatinine (0.7-1.2) mg/dL Glucose (65-100) mg/dL POC Glucose 226 H 183 H (70-105) 08/24/17 08/24/17 Range/Units 05:06 09:30 WBC (4.5-11.0) K/mm3 RBC (3.65-5.03) M/mm3 Hgb (10.1-14.3) gm/dl Hct (30.3-42.9) % RDW (13.2-15.2) % Seg Neuts % (Manual) (40.0-70.0) % Lymphocytes % (Manual) (13.4-35.0) % Nucleated RBC % (0.0-0.9) % Seg Neutrophils # Man (1.8-7.7) K/mm3 Lymphocytes # (Manual) (1.2-5.4) K/mm3 Monocytes # (Manual) (0.0-0.8) K/mm3 BUN 46 H (7-17) mg/dL Creatinine 2.5 H (0.7-1.2) mg/dL Glucose 176 H (65-100) mg/dL POC Glucose 201 H (70-105)
--- NOTE | 2017-08-24 16:11 | Progress Note ---
Assessment and Plan S/p Abd surgery - Drain in place. F/u per surgeon ESRD - Next HD Saturday Vitals - Vasopressor as tolerated Lytes - Stable, f/u labs Periph Edema - UF on HD Nutrition - Continue TPN pending bowel use Subjective Date of service: 08/24/17 Principal diagnosis: /anemia, poor oral intake. Interval history: Pt s/p exp lap for adhesions hence pt switched from PD to HD via Rt femoral vascath Objective - Vital Signs Vital signs: Vital Signs - 12hr 08/24/17 08/24/17 08/24/17 04:16 04:30 04:46 Temperature Pulse Rate 104 H 104 H 104 H Pulse Rate [ Apical] Pulse Rate [ Bilateral Throughout] Pulse Rate [ From Monitor] Respiratory 20 23 21 Rate Respiratory Rate [Bilateral Throughout] Blood Pressure 146/86 146/86 120/77 O2 Sat by Pulse 99 98 Oximetry 08/24/17 08/24/17 08/24/17 05:00 05:16 05:30 Temperature Pulse Rate 103 H 110 H 102 H Pulse Rate [ Apical] Pulse Rate [ Bilateral Throughout] Pulse Rate [ From Monitor] Respiratory 20 33 H 22 Rate Respiratory Rate [Bilateral Throughout] Blood Pressure 120/77 145/109 145/93 O2 Sat by Pulse 98 99 98 Oximetry 08/24/17 08/24/17 08/24/17 05:46 06:00 06:16 Temperature Pulse Rate 108 H 111 H 112 H Pulse Rate [ Apical] Pulse Rate [ Bilateral Throughout] Pulse Rate [ From Monitor] Respiratory 19 27 H 28 H Rate Respiratory Rate [Bilateral Throughout] Blood Pressure 145/93 146/93 146/93 O2 Sat by Pulse 100 95 96 Oximetry 08/24/17 08/24/17 08/24/17 06:30 06:46 07:00 Temperature Pulse Rate 112 H 114 H 115 H Pulse Rate [ Apical] Pulse Rate [ Bilateral Throughout] Pulse Rate [ From Monitor] Respiratory 26 H 24 27 H Rate Respiratory Rate [Bilateral Throughout] Blood Pressure 157/99 157/99 157/99 O2 Sat by Pulse 94 99 96 Oximetry 08/24/17 08/24/17 08/24/17 07:10 07:16 07:27 Temperature Pulse Rate 110 H Pulse Rate [ 113 H Apical] Pulse Rate [ 101 H Bilateral Throughout] Pulse Rate [ 113 H From Monitor] Respiratory 32 H 20 Rate Respiratory 27 H Rate [Bilateral Throughout] Blood Pressure 122/101 O2 Sat by Pulse 100 99 Oximetry 08/24/17 08/24/17 08/24/17 07:28 07:30 07:36 Temperature Pulse Rate 116 H Pulse Rate [ Apical] Pulse Rate [ 114 H Bilateral Throughout] Pulse Rate [ From Monitor] Respiratory 28 H Rate Respiratory 24 Rate [Bilateral Throughout] Blood Pressure 122/101 O2 Sat by Pulse 100 99 Oximetry 08/24/17 08/24/17 08/24/17 07:46 08:00 08:10 Temperature 97.8 F Pulse Rate 112 H 109 H Pulse Rate [ Apical] Pulse Rate [ Bilateral Throughout] Pulse Rate [ From Monitor] Respiratory 28 H 22 Rate Respiratory Rate [Bilateral Throughout] Blood Pressure 122/101 117/71 O2 Sat by Pulse 97 98 Oximetry 08/24/17 08/24/17 08/24/17 08:16 08:30 08:46 Temperature Pulse Rate 109 H 110 H 105 H Pulse Rate [ Apical] Pulse Rate [ Bilateral Throughout] Pulse Rate [ From Monitor] Respiratory 23 23 24 Rate Respiratory Rate [Bilateral Throughout] Blood Pressure 117/71 118/70 118/70 O2 Sat by Pulse 100 100 Oximetry 08/24/17 08/24/17 08/24/17 09:00 09:16 09:30 Temperature Pulse Rate 104 H 109 H 108 H Pulse Rate [ Apical] Pulse Rate [ Bilateral Throughout] Pulse Rate [ From Monitor] Respiratory 25 H 28 H 26 H Rate Respiratory Rate [Bilateral Throughout] Blood Pressure 118/70 128/72 128/76 O2 Sat by Pulse 97 100 98 Oximetry 08/24/17 08/24/17 08/24/17 09:46 10:00 10:16 Temperature Pulse Rate 109 H 116 H 112 H Pulse Rate [ Apical] Pulse Rate [ Bilateral Throughout] Pulse Rate [ From Monitor] Respiratory 29 H 27 H 31 H Rate Respiratory Rate [Bilateral Throughout] Blood Pressure 128/76 128/76 152/97 O2 Sat by Pulse 99 98 100 Oximetry 08/24/17 08/24/17 08/24/17 10:29 10:30 10:46 Temperature Pulse Rate 108 H 104 H Pulse Rate [ Apical] Pulse Rate [ Bilateral Throughout] Pulse Rate [ From Monitor] Respiratory 29 H 24 15 Rate Respiratory Rate [Bilateral Throughout] Blood Pressure 136/73 136/73 O2 Sat by Pulse 100 100 Oximetry 08/24/17 08/24/17 08/24/17 11:00 11:16 11:30 Temperature Pulse Rate 99 H 100 H 100 H Pulse Rate [ Apical] Pulse Rate [ Bilateral Throughout] Pulse Rate [ From Monitor] Respiratory 17 15 18 Rate Respiratory Rate [Bilateral Throughout] Blood Pressure 109/61 109/61 104/61 O2 Sat by Pulse 99 99 97 Oximetry 08/24/17 08/24/17 08/24/17 11:46 12:00 12:16 Temperature 98.2 F Pulse Rate 95 H 97 H 102 H Pulse Rate [ Apical] Pulse Rate [ Bilateral Throughout] Pulse Rate [ From Monitor] Respiratory 16 17 16 Rate Respiratory Rate [Bilateral Throughout] Blood Pressure 87/51 82/57 82/57 O2 Sat by Pulse 100 Oximetry 08/24/17 08/24/17 08/24/17 12:30 12:46 13:00 Temperature Pulse Rate 97 H 94 H 93 H Pulse Rate [ Apical] Pulse Rate [ Bilateral Throughout] Pulse Rate [ From Monitor] Respiratory 25 H 15 17 Rate Respiratory Rate [Bilateral Throughout] Blood Pressure 98/59 82/57 104/57 O2 Sat by Pulse 98 100 100 Oximetry 08/24/17 08/24/17 13:16 13:30 Temperature Pulse Rate 93 H 93 H Pulse Rate [ Apical] Pulse Rate [ Bilateral Throughout] Pulse Rate [ From Monitor] Respiratory 16 17 Rate Respiratory Rate [Bilateral Throughout] Blood Pressure 98/59 102/60 O2 Sat by Pulse 100 99 Oximetry - General Appearance General appearance: other (Arousable & responsive) Respiratory: Present: Other (On face mask) Cardiology: regular, S1S2 (LE edema) Gastrointestinal: obese, other (Drain in place, PEG) - Lab 08/24/17 04:00 08/24/17 09:30 Most recent lab results Calcium 8.5 mg/dL (8.4-10.2) 08/24/17 09:30 Phosphorus 4.50 mg/dL (2.5-4.5) 08/24/17 09:30 Magnesium 2.20 mg/dL (1.7-2.3) 08/24/17 09:30
[2017-08-24] MEDS ORDERED: TPN ADULT 1,800 ML IV SCH (20:00)
--- NOTE | 2017-08-24 20:26 | Progress Note ---
Assessment and Plan - Patient Problems (1) Leukocytosis Current Visit: Yes Status: Acute Qualifiers: Leukocytosis type: L Plan to address problem: See notes above. make sure that PD access is clean also. see notes. Probably infection from the infected PD catheter. improving. (2) Anemia Current Visit: Yes Status: Acute Qualifiers: Anemia type: A Iron deficiency anemia type: I Vitamin B12 deficiency anemia type: V Folate deficiency anemia type: F Bone marrow failure anemia type: B Hemolytic anemia type: H Other causes of anemia: O Chronic kidney disease stage: C Plan to address problem: see notes , monitor labs,. see notes above. continue to monitor labs with you. Subjective Date of service: 08/24/17 Principal diagnosis: /anemia, poor oral intake. Interval history: Patient seen today/examined, labs reviewed, case d/w she, and family.complaints of abdominal pain. Patient resting in bed in the ICU, post vascular procedure. labs reviewed, Reactive thrombocytosis, anemia of CD, leukocytosis from infection vs inflamatory process. Patient seen/examined, in bed in the ICU, on the vent post surgery.Labs reviewed , notes reviewed. will continue to monitor labs/patient with you. Replacement transfusion, if /when indicated. patient seen/examined, SBP75, on pressors., lethargic, on the vent, labs reviewed, wbc 39,000 Patient seen/examined, case reviewed, d/w her sister at the bed side. Patient seen/examined, labs reviewed, notes reviewed. severe septic shock from infected PD catheter The high wbc is all infection related. H?H low, and may get replacement transfusion with the next HD. Prognosis remain quite poor. Patient seen/examined, extubated, now on V Mask. labs reviewed. patient seen/examined, resting in bed, still some what lethargic . labs reviewed. Patient seen/examined, resting in bed., some difficulty with breathing./ lethargic. patient seen/examined, resting in bed, looked much better labs reviewed, and fair over all. Objective - Constitutional Vitals: Vital Signs - 12hr 08/24/17 08/24/17 08/24/17 08:30 08:46 09:00 Temperature Pulse Rate 110 H 105 H 104 H Pulse Rate [ Apical] Pulse Rate [ From Monitor] Respiratory 23 24 25 H Rate Blood Pressure 118/70 118/70 118/70 O2 Sat by Pulse 100 97 Oximetry 09/30/17 09/30/17 09/30/17 09:16 09:30 09:46 Temperature Pulse Rate 109 H 108 H 109 H Pulse Rate [ Apical] Pulse Rate [ From Monitor] Respiratory 28 H 26 H 29 H Rate Blood Pressure 128/72 128/76 128/76 O2 Sat by Pulse 100 98 99 Oximetry 08/24/17 08/24/17 08/24/17 10:00 10:16 10:29 Temperature Pulse Rate 116 H 112 H Pulse Rate [ Apical] Pulse Rate [ From Monitor] Respiratory 27 H 31 H 29 H Rate Blood Pressure 128/76 152/97 O2 Sat by Pulse 98 100 Oximetry 08/24/17 08/24/17 08/24/17 10:30 10:46 11:00 Temperature Pulse Rate 108 H 104 H 99 H Pulse Rate [ Apical] Pulse Rate [ From Monitor] Respiratory 24 15 17 Rate Blood Pressure 136/73 136/73 109/61 O2 Sat by Pulse 100 100 99 Oximetry 08/24/17 08/24/17 08/24/17 11:16 11:30 11:46 Temperature Pulse Rate 100 H 100 H 95 H Pulse Rate [ 100 H Apical] Pulse Rate [ 100 H From Monitor] Respiratory 15 16 16 Rate Blood Pressure 109/61 104/61 87/51 O2 Sat by Pulse 99 100 Oximetry 08/24/17 08/24/17 08/24/17 12:00 12:16 12:30 Temperature 98.2 F Pulse Rate 97 H 102 H 97 H Pulse Rate [ Apical] Pulse Rate [ From Monitor] Respiratory 17 16 25 H Rate Blood Pressure 82/57 82/57 98/59 O2 Sat by Pulse 100 98 Oximetry 08/24/17 08/24/17 08/24/17 12:46 13:00 13:16 Temperature Pulse Rate 94 H 93 H 93 H Pulse Rate [ Apical] Pulse Rate [ From Monitor] Respiratory 15 17 16 Rate Blood Pressure 82/57 104/57 98/59 O2 Sat by Pulse 100 100 100 Oximetry 08/24/17 08/24/17 08/24/17 13:30 13:46 14:00 Temperature Pulse Rate 93 H 96 H 94 H Pulse Rate [ Apical] Pulse Rate [ From Monitor] Respiratory 17 16 15 Rate Blood Pressure 102/60 102/60 108/63 O2 Sat by Pulse 99 100 97 Oximetry 0908/24/17 08/24/17 14:16 14:30 14:46 Temperature Pulse Rate 94 H 96 H 94 H Pulse Rate [ Apical] Pulse Rate [ From Monitor] Respiratory 15 17 13 Rate Blood Pressure 108/63 122/67 122/67 O2 Sat by Pulse 100 100 100 Oximetry 08/24/17 08/24/17 08/24/17 15:00 15:16 15:30 Temperature Pulse Rate 100 H 96 H 100 H Pulse Rate [ Apical] Pulse Rate [ From Monitor] Respiratory 18 14 16 Rate Blood Pressure 104/63 104/63 113/59 O2 Sat by Pulse 99 100 100 Oximetry 08/24/17 08/24/17 08/24/17 15:46 15:50 16:00 Temperature 98.2 F Pulse Rate 98 H 98 H Pulse Rate [ 97 H Apical] Pulse Rate [ 97 H From Monitor] Respiratory 19 19 19 Rate Blood Pressure 113/59 125/75 O2 Sat by Pulse 100 100 100 Oximetry 08/24/17 08/24/17 08/24/17 16:16 16:30 16:46 Temperature Pulse Rate 100 H 99 H 99 H Pulse Rate [ Apical] Pulse Rate [ From Monitor] Respiratory 17 16 20 Rate Blood Pressure 113/59 113/59 116/65 O2 Sat by Pulse 100 100 100 Oximetry 08/24/17 08/24/17 08/24/17 17:00 17:16 17:30 Temperature Pulse Rate 97 H 99 H 98 H Pulse Rate [ Apical] Pulse Rate [ From Monitor] Respiratory 18 20 21 Rate Blood Pressure 123/65 123/65 113/66 O2 Sat by Pulse 100 100 100 Oximetry 08/24/17 08/24/17 08/24/17 17:46 18:00 18:16 Temperature Pulse Rate 97 H 98 H 97 H Pulse Rate [ Apical] Pulse Rate [ From Monitor] Respiratory 18 20 20 Rate Blood Pressure 113/66 104/64 104/64 O2 Sat by Pulse 100 99 100 Oximetry 08/24/17 08/24/17 08/24/17 18:30 18:46 19:00 Temperature Pulse Rate 96 H 100 H 98 H Pulse Rate [ Apical] Pulse Rate [ From Monitor] Respiratory 19 18 19 Rate Blood Pressure 114/59 114/59 111/70 O2 Sat by Pulse 86 100 100 Oximetry 08/24/17 08/24/17 08/24/17 19:16 19:28 19:30 Temperature Pulse Rate 99 H 95 H Pulse Rate [ Apical] Pulse Rate [ From Monitor] Respiratory 20 21 Rate Blood Pressure 114/59 91/64 O2 Sat by Pulse 100 100 100 Oximetry 08/24/17 08/24/17 19:46 20:00 Temperature Pulse Rate 101 H 97 H Pulse Rate [ Apical] Pulse Rate [ From Monitor] Respiratory 22 20 Rate Blood Pressure 91/64 111/68 O2 Sat by Pulse 100 100 Oximetry General appearance: Present: mild distress, well-nourished - EENT Eyes: PERRL, EOM intact ENT: hearing intact, clear oral mucosa Ears: bilateral: normal - Neck Neck: supple, normal ROM - Respiratory Respiratory: bilateral: diminished - Breasts Breasts: deferred - Cardiovascular Rhythm: regular Heart Sounds: Present: S1 & S2. Absent: gallop, rub Extremities: pulses intact, No edema, normal color, Full ROM - Gastrointestinal General gastrointestinal: Present: soft, non-tender, non-distended, normal bowel sounds Rectal Exam: deferred - Genitourinary Female genitourinary: deferred - Integumentary Integumentary: clear, warm, dry - Neurologic Neurologic: moves all extremities - Psychiatric Psychiatric: appropriate mood/affect - Labs CBC & Chem 7: 08/24/17 04:00 08/24/17 09:30 Labs: Abnormal lab results 08/23/17 08/24/17 08/24/17 Range/Units 23:13 04:00 05:06 WBC 34.2 H (4.5-11.0) K/mm3 RBC 2.86 L (3.65-5.03) M/mm3 Hgb 8.4 L (10.1-14.3) gm/dl Hct 25.9 L (30.3-42.9) % RDW 17.9 H (13.2-15.2) % Seg Neuts % (Manual) 85.0 H (40.0-70.0) % Lymphocytes % (Manual) 0.5 L (13.4-35.0) % Nucleated RBC % 1.0 H (0.0-0.9) % Seg Neutrophils # Man 29.1 H (1.8-7.7) K/mm3 Lymphocytes # (Manual) 0.2 L (1.2-5.4) K/mm3 Monocytes # (Manual) 2.4 H (0.0-0.8) K/mm3 BUN (7-17) mg/dL Creatinine (0.7-1.2) mg/dL Glucose (65-100) mg/dL POC Glucose 183 H 201 H (70-105) 08/24/ Range/Units 09:30 WBC (4.5-11.0) K/mm3 RBC (3.65-5.03) M/mm3 Hgb (10.1-14.3) gm/dl Hct (30.3-42.9) % RDW (13.2-15.2) % Seg Neuts % (Manual) (40.0-70.0) % Lymphocytes % (Manual) (13.4-35.0) % Nucleated RBC % (0.0-0.9) % Seg Neutrophils # Man (1.8-7.7) K/mm3 Lymphocytes # (Manual) (1.2-5.4) K/mm3 Monocytes # (Manual) (0.0-0.8) K/mm3 BUN 46 H (7-17) mg/dL Creatinine 2.5 H (0.7-1.2) mg/dL Glucose 176 H (65-100) mg/dL POC Glucose (70-105)
--- NOTE | 2017-08-25 06:25 | Progress Note ---
Assessment and Plan 62 y/o female originally admitted with hypotension, now back to ICU secondary to worsening hypotension, concern for sepsis, with acute respiratory failure post-op from ex-lap for abdominal distention and possible ileus. 1. Pain control for dressing changes. 2. Tolerates aerosolized cool air mask better. Only at 28% and sat is 100. Will continue 3. Follow up any new ID recs 4. Continue Stress dose steroids at current dosing. pPressor is off but patient's BP has been labile, if able to maintain off pressor can consider weaning dose. Will need to continue IV therapy as patient remains NPO 5. Follow up any new surgery recs 6. Will continue to follow while in ICU Overall prognosis is guarded CCT 31 Subjective Date of service: 08/25/17 Principal diagnosis: /anemia, poor oral intake. Interval history: No acute events. Pressors weaned off now but were on briefly yesterday and Saturday. Patient awake, alert. Weak. No family at bedside. Remains on stress dose steroids. Objective Vital Signs - 12hr 08/24/17 08/24/17 08/24/17 18:30 18:46 19:00 Temperature Pulse Rate 96 H 100 H 98 H Pulse Rate [ Bilateral Throughout] Respiratory 19 18 19 Rate Respiratory Rate [Bilateral Throughout] Blood Pressure 114/59 114/59 111/70 O2 Sat by Pulse 86 100 100 Oximetry 08/24/17 08/24/17 08/24/17 19:16 19:28 19:30 Temperature Pulse Rate 99 H 95 H Pulse Rate [ Bilateral Throughout] Respiratory 20 21 Rate Respiratory Rate [Bilateral Throughout] Blood Pressure 114/59 91/64 O2 Sat by Pulse 100 100 100 Oximetry 08/24/17 08/24/17 08/24/17 19:46 20:00 20:10 Temperature 97.8 F Pulse Rate 101 H 97 H 98 H Pulse Rate [ Bilateral Throughout] Respiratory 22 20 21 Rate Respiratory Rate [Bilateral Throughout] Blood Pressure 91/64 111/68 111/68 O2 Sat by Pulse 100 100 100 Oximetry 08/24/17 08/24/17 08/24/17 20:16 20:30 20:46 Temperature Pulse Rate 102 H 99 H 99 H Pulse Rate [ Bilateral Throughout] Respiratory 22 23 23 Rate Respiratory Rate [Bilateral Throughout] Blood Pressure 111/68 104/72 104/72 O2 Sat by Pulse 100 95 100 Oximetry 08/24/17 08/24/17 08/24/17 21:00 21:16 21:30 Temperature Pulse Rate 101 H 99 H 103 H Pulse Rate [ Bilateral Throughout] Respiratory 24 20 17 Rate Respiratory Rate [Bilateral Throughout] Blood Pressure 101/68 101/68 101/68 O2 Sat by Pulse 100 100 100 Oximetry 08/24/17 08/24/17 08/24/17 21:46 21:50 22:00 Temperature Pulse Rate 107 H 103 H Pulse Rate [ 105 H Bilateral Throughout] Respiratory 25 H 23 Rate Respiratory 24 Rate [Bilateral Throughout] Blood Pressure 114/59 118/66 O2 Sat by Pulse 99 100 Oximetry 08/24/17 08/24/17 08/24/17 22:01 22:16 22:30 Temperature Pulse Rate 102 H 102 H Pulse Rate [ 103 H Bilateral Throughout] Respiratory 23 21 Rate Respiratory 23 Rate [Bilateral Throughout] Blood Pressure 118/66 110/37 O2 Sat by Pulse 100 100 Oximetry 08/24/17 08/24/17 08/24/17 22:46 23:00 23:16 Temperature Pulse Rate 104 H 102 H 101 H Pulse Rate [ Bilateral Throughout] Respiratory 16 21 22 Rate Respiratory Rate [Bilateral Throughout] Blood Pressure 110/37 117/51 117/51 O2 Sat by Pulse 100 100 100 Oximetry 08/24/17 08/24/17 08/25/17 23:30 23:46 00:00 Temperature 98.1 F Pulse Rate 103 H 104 H 103 H Pulse Rate [ Bilateral Throughout] Respiratory 24 20 13 Rate Respiratory Rate [Bilateral Throughout] Blood Pressure 117/51 111/55 111/55 O2 Sat by Pulse 100 99 100 Oximetry 08/25/17 08/25/17 08/25/17 00:16 00:30 00:46 Temperature Pulse Rate 103 H 103 H 104 H Pulse Rate [ Bilateral Throughout] Respiratory 23 23 22 Rate Respiratory Rate [Bilateral Throughout] Blood Pressure 94/68 94/68 104/64 O2 Sat by Pulse 100 100 100 Oximetry 08/25/17 08/25/17 08/25/17 01:00 01:16 01:30 Temperature Pulse Rate 102 H 105 H 104 H Pulse Rate [ Bilateral Throughout] Respiratory 19 14 23 Rate Respiratory Rate [Bilateral Throughout] Blood Pressure 114/69 114/69 110/61 O2 Sat by Pulse 100 81 L 99 Oximetry 08/25/17 08/25/17 08/25/17 01:46 02:00 02:16 Temperature Pulse Rate 103 H 103 H 102 H Pulse Rate [ Bilateral Throughout] Respiratory 22 14 22 Rate Respiratory Rate [Bilateral Throughout] Blood Pressure 110/61 110/61 101/67 O2 Sat by Pulse 100 100 99 Oximetry 08/25/17 08/25/17 08/25/17 02:30 02:46 03:00 Temperature Pulse Rate 104 H 102 H 103 H Pulse Rate [ Bilateral Throughout] Respiratory 22 22 19 Rate Respiratory Rate [Bilateral Throughout] Blood Pressure 103/64 103/64 110/72 O2 Sat by Pulse 98 100 95 Oximetry 08/25/17 08/25/17 08/25/17 03:16 03:27 03:30 Temperature 98.8 F Pulse Rate 104 H 100 H Pulse Rate [ Bilateral Throughout] Respiratory 20 22 Rate Respiratory Rate [Bilateral Throughout] Blood Pressure 110/72 116/35 O2 Sat by Pulse 100 92 Oximetry 08/25/17 08/25/17 08/25/17 03:46 04:00 04:16 Temperature Pulse Rate 104 H 102 H 103 H Pulse Rate [ Bilateral Throughout] Respiratory 26 H 23 25 H Rate Respiratory Rate [Bilateral Throughout] Blood Pressure 116/35 97/30 97/30 O2 Sat by Pulse 100 91 Oximetry 08/25/17 08/25/17 08/25/17 04:30 04:46 05:00 Temperature Pulse Rate 103 H 102 H 101 H Pulse Rate [ Bilateral Throughout] Respiratory 19 23 22 Rate Respiratory Rate [Bilateral Throughout] Blood Pressure 111/94 111/94 114/85 O2 Sat by Pulse 100 68 L Oximetry 08/25/17 08/25/17 08/25/17 05:16 05:30 05:46 Temperature Pulse Rate 101 H 101 H 103 H Pulse Rate [ Bilateral Throughout] Respiratory 22 24 23 Rate Respiratory Rate [Bilateral Throughout] Blood Pressure 114/85 114/85 110/56 O2 Sat by Pulse 92 98 Oximetry 08/25/17 06:00 Temperature Pulse Rate 102 H Pulse Rate [ Bilateral Throughout] Respiratory 22 Rate Respiratory Rate [Bilateral Throughout] Blood Pressure 124/80 O2 Sat by Pulse 99 Oximetry Constitutional: alert, lethargic, appears uncomfortable Eyes: non-icteric ENT: oropharynx moist, other (NG tube in place in right nare) Neck: supple, no lymphadenopathy, no JVD Effort: mildly labored Ascultation: Bilateral: diminished breath sounds Cardiovascular: regular rate and rhythm Gastrointestinal: absent bowel sounds, tender, other (abdominal incision with dressing noted) Extremities: no cyanosis, no edema, pink and warm Neurologic: other (sedated) CBC and BMP: 08/24/17 04:00 08/24/17 09:30 ABG, PT/INR, D-dimer: ABG POC ABG pH 7.481 (7.35-7.45) H 08/21/17 03:14 POC ABG pCO2 29.6 (35-45) L 08/21/17 03:14 POC ABG pO2 104 (80-105) 08/21/17 03:14 POC ABG HCO3 22.1 08/21/17 03:14 POC ABG Total CO2 23 08/21/17 03:14 POC ABG O2 Sat 98 08/21/17 03:14 PT/INR, D-dimer PT 16.0 Sec. (12.2-14.9) H 08/17/17 11:20 INR 1.29 (0.87-1.13) H 08/17/17 11:20 Abnormal lab findings: Abnormal Labs 08/08/17 08/08/17 08/09/17 21:23 21:31 11:19 WBC 15.7 H RBC 2.93 L Hgb 8.7 L Hct 26.8 L MCV RDW 19.2 H Plt Count Lymph % (Auto) [place] % (Auto) [place] # Seg Neutrophils % Seg Neuts % (Manual) Lymphocytes % (Manual) Monocytes % (Manual) Nucleated RBC % Seg Neutrophils # Seg Neutrophils # Man Lymphocytes # (Manual) Monocytes # (Manual) Eosinophils # (Manual) Basophils # (Manual) PT INR POC ABG pH 7.490 H POC ABG pCO2 POC ABG pO2 122 H Sodium Potassium Chloride Carbon Dioxide BUN Creatinine Glucose POC Glucose Calcium Phosphorus Magnesium AST ALT Alkaline Phosphatase Troponin T 0.133 H* C-Reactive Protein Total Protein Albumin HDL Cholesterol 26 L Miscellaneous Test Crossmatch 08/09/17 08/10/17 08/10/17 13:25 04:45 04:45 WBC 15.5 H RBC 2.97 L Hgb 8.9 L Hct 27.0 L MCV RDW 19.2 H Plt Count Lymph % (Auto) [place] % (Auto) [place] # Seg Neutrophils % Seg Neuts % (Manual) 73.0 H Lymphocytes % (Manual) 7.0 L Monocytes % (Manual) 14.0 H Nucleated RBC % Seg Neutrophils # Seg Neutrophils # Man 11.3 H Lymphocytes # (Manual) 1.1 L Monocytes # (Manual) 2.2 H Eosinophils # (Manual) Basophils # (Manual) 0.2 H PT INR POC ABG pH POC ABG pCO2 POC ABG pO2 Sodium Potassium 3.3 L Chloride 97.3 L Carbon Dioxide 21 L BUN 23 H Creatinine 6.5 H Glucose POC Glucose Calcium 7.3 L Phosphorus Magnesium AST ALT Alkaline Phosphatase 138 H Troponin T 0.132 H* C-Reactive Protein Total Protein 4.8 L Albumin 1.4 L HDL Cholesterol Miscellaneous Test Crossmatch 08/11/17 08/11/17 08/12/17 04:00 04:00 05:50 WBC 19.3 H RBC 3.10 L Hgb 9.5 L Hct 28.2 L MCV RDW 19.2 H Plt Count 463 H Lymph % (Auto) 7.5 L [place] % (Auto) 14.6 H [place] # 2.8 H Seg Neutrophils % 77.0 H Seg Neuts % (Manual) Lymphocytes % (Manual) Monocytes % (Manual) Nucleated RBC % Seg Neutrophils # 14.8 H Seg Neutrophils # Man Lymphocytes # (Manual) Monocytes # (Manual) Eosinophils # (Manual) Basophils # (Manual) PT INR POC ABG pH POC ABG pCO2 POC ABG pO2 Sodium 136 L 136 L Potassium 3.3 L Chloride 96.3 L 96.6 L Carbon Dioxide BUN 26 H 26 H Creatinine 6.4 H 6.2 H Glucose 135 H 133 H POC Glucose Calcium 8.2 L Phosphorus Magnesium 1.30 L AST ALT Alkaline Phosphatase 139 H Troponin T C-Reactive Protein Total Protein 5.5 L Albumin 1.7 L HDL Cholesterol Miscellaneous Test Crossmatch 08/12/17 08/12/17 08/12/17 05:50 05:50 05:50 WBC 20.1 H RBC 3.06 L Hgb 9.3 L Hct 27.9 L MCV RDW 18.4 H Plt Count 471 H Lymph % (Auto) [place] % (Auto) [place] # Seg Neutrophils % Seg Neuts % (Manual) 85.0 H Lymphocytes % (Manual) 8.0 L Monocytes % (Manual) Nucleated RBC % Seg Neutrophils # Seg Neutrophils # Man 17.1 H Lymphocytes # (Manual) Monocytes # (Manual) 1.0 H Eosinophils # (Manual) Basophils # (Manual) PT 15.2 H INR 1.14 H POC ABG pH POC ABG pCO2 POC ABG pO2 Sodium Potassium Chloride Carbon Dioxide BUN Creatinine Glucose POC Glucose Calcium Phosphorus Magnesium AST ALT Alkaline Phosphatase Troponin T C-Reactive Protein 28.90 H Total Protein Albumin HDL Cholesterol Miscellaneous Test Crossmatch 08/12/17 08/13/17 08/13/17 16:23 06:14 06:14 WBC 21.8 H RBC 3.11 L Hgb 9.4 L Hct 28.2 L MCV RDW 18.2 H Plt Count 492 H Lymph % (Auto) [place] % (Auto) [place] # Seg Neutrophils % Seg Neuts % (Manual) 73.0 H Lymphocytes % (Manual) 2.0 L Monocytes % (Manual) 15 H Nucleated RBC % Seg Neutrophils # Seg Neutrophils # Man 15.9 H Lymphocytes # (Manual) 0.4 L Monocytes # (Manual) 2.4 H Eosinophils # (Manual) Basophils # (Manual) PT INR POC ABG pH POC ABG pCO2 POC ABG pO2 Sodium Potassium Chloride 96.2 L Carbon Dioxide BUN 28 H Creatinine 5.6 H Glucose 114 H POC Glucose Calcium Phosphorus Magnesium AST ALT Alkaline Phosphatase Troponin T C-Reactive Protein 26.10 H Total Protein Albumin HDL Cholesterol Miscellaneous Test Crossmatch 08/13/17 08/14/17 08/14/17 16:39 04:00 04:00 WBC 22.1 H RBC 3.25 L Hgb 9.9 L Hct 29.5 L MCV RDW 17.9 H Plt Count 525 H Lymph % (Auto) [place] % (Auto) [place] # Seg Neutrophils % Seg Neuts % (Manual) 74.0 H Lymphocytes % (Manual) 8.0 L Monocytes % (Manual) 12.0 H Nucleated RBC % Seg Neutrophils # Seg Neutrophils # Man 16.4 H Lymphocytes # (Manual) Monocytes # (Manual) 2.7 H Eosinophils # (Manual) Basophils # (Manual) PT INR POC ABG pH POC ABG pCO2 POC ABG pO2 Sodium 134 L Potassium 3.3 L Chloride 93.3 L Carbon Dioxide BUN 27 H Creatinine 6.0 H Glucose 152 H POC Glucose 151 H Calcium Phosphorus Magnesium AST ALT Alkaline Phosphatase Troponin T C-Reactive Protein Total Protein Albumin HDL Cholesterol Miscellaneous Test Crossmatch 0908/16/17 08/16/17 09:10 09:50 09:50 WBC 31.1 H RBC 3.21 L Hgb 9.6 L Hct 29.3 L MCV RDW 18.1 H Plt Count 642 H Lymph % (Auto) [place] % (Auto) [place] # Seg Neutrophils % Seg Neuts % (Manual) 74.0 H Lymphocytes % (Manual) 4.0 L Monocytes % (Manual) 9.0 H Nucleated RBC % Seg Neutrophils # Seg Neutrophils # Man 23.0 H Lymphocytes # (Manual) Monocytes # (Manual) 2.8 H Eosinophils # (Manual) Basophils # (Manual) PT INR POC ABG pH POC ABG pCO2 POC ABG pO2 Sodium 136 L 136 L Potassium 3.5 L Chloride 97.6 L 94.9 L Carbon Dioxide BUN 27 H 28 H Creatinine 5.6 H 5.5 H Glucose 117 H 103 H POC Glucose Calcium Phosphorus Magnesium AST ALT Alkaline Phosphatase 137 H Troponin T C-Reactive Protein Total Protein 5.4 L Albumin 1.5 L HDL Cholesterol Miscellaneous Test Crossmatch 08/16/17 08/17/17 08/17/17 09:50 05:00 06:26 WBC RBC Hgb Hct MCV RDW Plt Count Lymph % (Auto) [place] % (Auto) [place] # Seg Neutrophils % Seg Neuts % (Manual) Lymphocytes % (Manual) Monocytes % (Manual) Nucleated RBC % Seg Neutrophils # Seg Neutrophils # Man Lymphocytes # (Manual) Monocytes # (Manual) Eosinophils # (Manual) Basophils # (Manual) PT INR POC ABG pH POC ABG pCO2 POC ABG pO2 Sodium 134 L Potassium 3.0 L Chloride 97.8 L Carbon Dioxide BUN 30 H Creatinine 5.3 H Glucose 147 H POC Glucose 165 H Calcium 7.5 L Phosphorus Magnesium AST ALT Alkaline Phosphatase Troponin T C-Reactive Protein 32.30 H Total Protein Albumin HDL Cholesterol Miscellaneous Test Crossmatch 08/17/17 08/17/17 08/17/17 10:56 11:20 11:20 WBC 39.1 H RBC 3.10 L Hgb 9.2 L Hct 28.6 L MCV RDW 18.3 H Plt Count 580 H Lymph % (Auto) [place] % (Auto) [place] # Seg Neutrophils % Seg Neuts % (Manual) 89.5 H Lymphocytes % (Manual) 3.5 L Monocytes % (Manual) Nucleated RBC % Seg Neutrophils # Seg Neutrophils # Man 35.0 H Lymphocytes # (Manual) Monocytes # (Manual) 2.5 H Eosinophils # (Manual) Basophils # (Manual) 0.2 H PT INR POC ABG pH 7.464 H POC ABG pCO2 34.1 L POC ABG pO2 75 L Sodium Potassium Chloride Carbon Dioxide BUN Creatinine Glucose POC Glucose Calcium Phosphorus Magnesium AST ALT Alkaline Phosphatase Troponin T C-Reactive Protein Total Protein Albumin HDL Cholesterol Miscellaneous Test Flexitest 1 H Crossmatch 08/17/17 08/17/17 08/17/17 11:20 16:57 20:20 WBC 34.4 H RBC 2.81 L Hgb 8.4 L Hct 26.0 L MCV RDW 17.8 H Plt Count 455 H Lymph % (Auto) [place] % (Auto) [place] # Seg Neutrophils % Seg Neuts % (Manual) Lymphocytes % (Manual) 3.5 L Monocytes % (Manual) Nucleated RBC % 5.0 H Seg Neutrophils # Seg Neutrophils # Man 16.5 H Lymphocytes # (Manual) Monocytes # (Manual) 1.0 H Eosinophils # (Manual) Basophils # (Manual) PT 16.0 H INR 1.29 H POC ABG pH POC ABG pCO2 POC ABG pO2 Sodium 135 L Potassium 2.9 L* Chloride Carbon Dioxide 20 L BUN 32 H Creatinine 5.4 H Glucose 129 H POC Glucose Calcium 7.5 L Phosphorus Magnesium 1.50 L AST 85 H ALT Alkaline Phosphatase Troponin T C-Reactive Protein Total Protein 4.0 L D Albumin 1.6 L HDL Cholesterol Miscellaneous Test Crossmatch 08/17/17 08/17/17 08/18/17 20:54 23:47 04:26 WBC RBC Hgb Hct MCV RDW Plt Count Lymph % (Auto) [place] % (Auto) [place] # Seg Neutrophils % Seg Neuts % (Manual) Lymphocytes % (Manual) Monocytes % (Manual) Nucleated RBC % Seg Neutrophils # Seg Neutrophils # Man Lymphocytes # (Manual) Monocytes # (Manual) Eosinophils # (Manual) Basophils # (Manual) PT INR POC ABG pH 7.557 H POC ABG pCO2 23.1 L 29.0 L POC ABG pO2 187 H 148 H Sodium Potassium Chloride Carbon Dioxide BUN Creatinine Glucose POC Glucose 188 H Calcium Phosphorus Magnesium AST ALT Alkaline Phosphatase Troponin T C-Reactive Protein Total Protein Albumin HDL Cholesterol Miscellaneous Test Crossmatch 08/18/17 08/18/1717 05:51 11:44 17:07 WBC RBC Hgb Hct MCV RDW Plt Count Lymph % (Auto) [place] % (Auto) [place] # Seg Neutrophils % Seg Neuts % (Manual) Lymphocytes % (Manual) Monocytes % (Manual) Nucleated RBC % Seg Neutrophils # Seg Neutrophils # Man Lymphocytes # (Manual) Monocytes # (Manual) Eosinophils # (Manual) Basophils # (Manual) PT INR POC ABG pH POC ABG pCO2 POC ABG pO2 Sodium Potassium Chloride Carbon Dioxide BUN Creatinine Glucose POC Glucose 202 H 195 H 182 H Calcium Phosphorus Magnesium AST ALT Alkaline Phosphatase Troponin T C-Reactive Protein Total Protein Albumin HDL Cholesterol Miscellaneous Test Crossmatch 08/18/17 08/18/17 08/18/17 23:45 Unknown Unknown WBC 39.0 H RBC 2.84 L Hgb 8.4 L Hct 26.5 L MCV RDW 18.0 H Plt Count 476 H Lymph % (Auto) [place] % (Auto) [place] # Seg Neutrophils % Seg Neuts % (Manual) Lymphocytes % (Manual) 7.0 L Monocytes % (Manual) 10.0 H Nucleated RBC % 3.0 H Seg Neutrophils # Seg Neutrophils # Man 15.6 H Lymphocytes # (Manual) Monocytes # (Manual) 3.9 H Eosinophils # (Manual) Basophils # (Manual) PT INR POC ABG pH POC ABG pCO2 POC ABG pO2 Sodium Potassium Chloride Carbon Dioxide 19 L BUN 34 H Creatinine 5.6 H Glucose 201 H POC Glucose 163 H Calcium 7.8 L Phosphorus 1.90 L D Magnesium 1.60 L AST ALT Alkaline Phosphatase Troponin T C-Reactive Protein Total Protein Albumin HDL Cholesterol Miscellaneous Test Crossmatch 08/19/17 08/19/17 08/19/17 04:18 05:00 05:00 WBC 40.0 H RBC 2.46 L Hgb 7.3 L Hct 22.6 L MCV RDW 18.1 H Plt Count Lymph % (Auto) [place] % (Auto) [place] # Seg Neutrophils % Seg Neuts % (Manual) Lymphocytes % (Manual) 8.0 L Monocytes % (Manual) Nucleated RBC % 2.0 H Seg Neutrophils # Seg Neutrophils # Man 16.4 H Lymphocytes # (Manual) Monocytes # (Manual) 1.2 H Eosinophils # (Manual) 1.2 H Basophils # (Manual) PT INR POC ABG pH 7.463 H POC ABG pCO2 29.7 L POC ABG pO2 134 H Sodium Potassium 5.1 H D Chloride Carbon Dioxide 20 L BUN 40 H Creatinine 5.3 H Glucose 128 H POC Glucose Calcium 7.8 L Phosphorus 1.90 L Magnesium AST ALT Alkaline Phosphatase Troponin T C-Reactive Protein Total Protein Albumin HDL Cholesterol Miscellaneous Test Crossmatch 08/19/17 08/19/17 08/19/17 05:19 07:37 09:52 WBC 45.0 H* RBC 2.50 L Hgb 7.5 L Hct 24.5 L MCV 98 H RDW 18.4 H Plt Count Lymph % (Auto) [place] % (Auto) [place] # Seg Neutrophils % Seg Neuts % (Manual) 81.5 H Lymphocytes % (Manual) 4.0 L Monocytes % (Manual) Nucleated RBC % 1.0 H Seg Neutrophils # Seg Neutrophils # Man 36.7 H Lymphocytes # (Manual) Monocytes # (Manual) Eosinophils # (Manual) Basophils # (Manual) PT INR POC ABG pH POC ABG pCO2 POC ABG pO2 Sodium Potassium Chloride Carbon Dioxide BUN Creatinine Glucose POC Glucose 142 H Calcium Phosphorus Magnesium AST ALT Alkaline Phosphatase Troponin T C-Reactive Protein 34.20 H Total Protein Albumin HDL Cholesterol Miscellaneous Test Crossmatch 08/19/17 08/19/17 08/20/17 11:16 18:12 00:35 WBC RBC Hgb Hct MCV RDW Plt Count Lymph % (Auto) [place] % (Auto) [place] # Seg Neutrophils % Seg Neuts % (Manual) Lymphocytes % (Manual) Monocytes % (Manual) Nucleated RBC % Seg Neutrophils # Seg Neutrophils # Man Lymphocytes # (Manual) Monocytes # (Manual) Eosinophils # (Manual) Basophils # (Manual) PT INR POC ABG pH POC ABG pCO2 POC ABG pO2 Sodium Potassium Chloride Carbon Dioxide BUN Creatinine Glucose POC Glucose 143 H 137 H 164 H Calcium Phosphorus Magnesium AST ALT Alkaline Phosphatase Troponin T C-Reactive Protein Total Protein Albumin HDL Cholesterol Miscellaneous Test Crossmatch 08/20/17 08/20/17 08/20/17 03:20 03:20 04:00 WBC 48.0 H* RBC 2.55 L Hgb 7.6 L Hct 23.4 L MCV RDW 18.4 H Plt Count Lymph % (Auto) [place] % (Auto) [place] # Seg Neutrophils % Seg Neuts % (Manual) 90.0 H Lymphocytes % (Manual) 3.0 L Monocytes % (Manual) Nucleated RBC % Seg Neutrophils # Seg Neutrophils # Man 43.2 H Lymphocytes # (Manual) Monocytes # (Manual) 1.4 H Eosinophils # (Manual) 0.5 H Basophils # (Manual) PT INR POC ABG pH 7.499 H POC ABG pCO2 29.1 L POC ABG pO2 Sodium 135 L Potassium Chloride Carbon Dioxide BUN 28 H Creatinine 4.0 H Glucose 140 H POC Glucose Calcium 8.0 L Phosphorus 1.70 L Magnesium 1.60 L AST ALT Alkaline Phosphatase Troponin T C-Reactive Protein Total Protein Albumin HDL Cholesterol Miscellaneous Test Crossmatch 08/20/17 08/20/17 08/20/17 05:02 12:05 13:12 WBC RBC Hgb Hct MCV RDW Plt Count Lymph % (Auto) [place] % (Auto) [place] # Seg Neutrophils % Seg Neuts % (Manual) Lymphocytes % (Manual) Monocytes % (Manual) Nucleated RBC % Seg Neutrophils # Seg Neutrophils # Man Lymphocytes # (Manual) Monocytes # (Manual) Eosinophils # (Manual) Basophils # (Manual) PT INR POC ABG pH 7.537 H POC ABG pCO2 27.9 L POC ABG pO2 79 L Sodium Potassium Chloride Carbon Dioxide BUN Creatinine Glucose POC Glucose 158 H 203 H Calcium Phosphorus Magnesium AST ALT Alkaline Phosphatase Troponin T C-Reactive Protein Total Protein Albumin HDL Cholesterol Miscellaneous Test Crossmatch 08/20/17 08/21/17 08/21/17 17:13 00:47 03:14 WBC RBC Hgb Hct MCV RDW Plt Count Lymph % (Auto) [place] % (Auto) [place] # Seg Neutrophils % Seg Neuts % (Manual) Lymphocytes % (Manual) Monocytes % (Manual) Nucleated RBC % Seg Neutrophils # Seg Neutrophils # Man Lymphocytes # (Manual) Monocytes # (Manual) Eosinophils # (Manual) Basophils # (Manual) PT INR POC ABG pH 7.481 H POC ABG pCO2 29.6 L POC ABG pO2 Sodium Potassium Chloride Carbon Dioxide BUN Creatinine Glucose POC Glucose 188 H 109 H Calcium Phosphorus Magnesium AST ALT Alkaline Phosphatase Troponin T C-Reactive Protein Total Protein Albumin HDL Cholesterol Miscellaneous Test Crossmatch 08/21/17 08/21/17 08/21/17 05:05 06:50 06:50 WBC 44.7 H* RBC 2.41 L Hgb 7.1 L Hct 22.1 L MCV RDW 18.3 H Plt Count Lymph % (Auto) [place] % (Auto) [place] # Seg Neutrophils % Seg Neuts % (Manual) 89.0 H Lymphocytes % (Manual) 0 L Monocytes % (Manual) Nucleated RBC % 1.0 H Seg Neutrophils # Seg Neutrophils # Man 39.8 H Lymphocytes # (Manual) 0.0 L Monocytes # (Manual) 1.3 H Eosinophils # (Manual) Basophils # (Manual) PT INR POC ABG pH POC ABG pCO2 POC ABG pO2 Sodium 135 L Potassium Chloride Carbon Dioxide BUN 39 H Creatinine 4.4 H Glucose 147 H POC Glucose 166 H Calcium 8.1 L Phosphorus Magnesium AST ALT < 5 L Alkaline Phosphatase 164 H Troponin T C-Reactive Protein Total Protein 4.7 L Albumin 1.4 L HDL Cholesterol Miscellaneous Test Crossmatch 08/21/17 08/21/17 08/21/17 08:00 12:21 17:02 WBC RBC Hgb Hct MCV RDW Plt Count Lymph % (Auto) [place] % (Auto) [place] # Seg Neutrophils % Seg Neuts % (Manual) Lymphocytes % (Manual) Monocytes % (Manual) Nucleated RBC % Seg Neutrophils # Seg Neutrophils # Man Lymphocytes # (Manual) Monocytes # (Manual) Eosinophils # (Manual) Basophils # (Manual) PT INR POC ABG pH POC ABG pCO2 POC ABG pO2 Sodium Potassium Chloride Carbon Dioxide BUN Creatinine Glucose POC Glucose 147 H 135 H Calcium Phosphorus Magnesium AST ALT Alkaline Phosphatase Troponin T C-Reactive Protein Total Protein Albumin HDL Cholesterol Miscellaneous Test Crossmatch See Detail 08/21/17 08/22/17 08/22/17 23:38 03:40 03:40 WBC 42.5 H* RBC 2.88 L Hgb 8.5 L Hct 26.3 L MCV RDW 17.9 H Plt Count Lymph % (Auto) [place] % (Auto) [place] # Seg Neutrophils % Seg Neuts % (Manual) Lymphocytes % (Manual) 5.0 L Monocytes % (Manual) Nucleated RBC % Seg Neutrophils # Seg Neutrophils # Man 19.6 H Lymphocytes # (Manual) Monocytes # (Manual) 2.6 H Eosinophils # (Manual) Basophils # (Manual) PT INR POC ABG pH POC ABG pCO2 POC ABG pO2 Sodium Potassium 3.3 L D Chloride Carbon Dioxide BUN 27 H Creatinine 2.9 H Glucose 144 H POC Glucose 251 H Calcium 8.0 L Phosphorus 2.40 L Magnesium AST ALT Alkaline Phosphatase Troponin T C-Reactive Protein Total Protein Albumin HDL Cholesterol Miscellaneous Test Crossmatch 08/22/17 08/22/17 08/22/17 06:37 11:25 16:25 WBC RBC Hgb Hct MCV RDW Plt Count Lymph % (Auto) [place] % (Auto) [place] # Seg Neutrophils % Seg Neuts % (Manual) Lymphocytes % (Manual) Monocytes % (Manual) Nucleated RBC % Seg Neutrophils # Seg Neutrophils # Man Lymphocytes # (Manual) Monocytes # (Manual) Eosinophils # (Manual) Basophils # (Manual) PT INR POC ABG pH POC ABG pCO2 POC ABG pO2 Sodium Potassium Chloride Carbon Dioxide BUN Creatinine Glucose POC Glucose 152 H 175 H Calcium Phosphorus Magnesium AST ALT Alkaline Phosphatase Troponin T C-Reactive Protein 30.70 H Total Protein Albumin HDL Cholesterol Miscellaneous Test Crossmatch 08/22/17 08/22/17 08/23/17 17:56 23:03 05:36 WBC RBC Hgb Hct MCV RDW Plt Count Lymph % (Auto) [place] % (Auto) [place] # Seg Neutrophils % Seg Neuts % (Manual) Lymphocytes % (Manual) Monocytes % (Manual) Nucleated RBC % Seg Neutrophils # Seg Neutrophils # Man Lymphocytes # (Manual) Monocytes # (Manual) Eosinophils # (Manual) Basophils # (Manual) PT INR POC ABG pH POC ABG pCO2 POC ABG pO2 Sodium Potassium Chloride Carbon Dioxide BUN Creatinine Glucose POC Glucose 232 H 192 H 206 H Calcium Phosphorus Magnesium AST ALT Alkaline Phosphatase Troponin T C-Reactive Protein Total Protein Albumin HDL Cholesterol Miscellaneous Test Crossmatch 08/23/17 08/23/17 08/23/17 08:50 12:14 17:21 WBC RBC Hgb Hct MCV RDW Plt Count Lymph % (Auto) [place] % (Auto) [place] # Seg Neutrophils % Seg Neuts % (Manual) Lymphocytes % (Manual) Monocytes % (Manual) Nucleated RBC % Seg Neutrophils # Seg Neutrophils # Man Lymphocytes # (Manual) Monocytes # (Manual) Eosinophils # (Manual) Basophils # (Manual) PT INR POC ABG pH POC ABG pCO2 POC ABG pO2 Sodium Potassium Chloride 107.1 H Carbon Dioxide BUN 49 H Creatinine 3.3 H Glucose 172 H POC Glucose 238 H 226 H Calcium Phosphorus Magnesium 2.40 H AST ALT Alkaline Phosphatase Troponin T C-Reactive Protein Total Protein Albumin HDL Cholesterol Miscellaneous Test Crossmatch 08/23/17 08/24/17 08/24/17 23:13 04:00 05:06 WBC 34.2 H RBC 2.86 L Hgb 8.4 L Hct 25.9 L MCV RDW 17.9 H Plt Count Lymph % (Auto) [place] % (Auto) [place] # Seg Neutrophils % Seg Neuts % (Manual) 85.0 H Lymphocytes % (Manual) 0.5 L Monocytes % (Manual) Nucleated RBC % 1.0 H Seg Neutrophils # Seg Neutrophils # Man 29.1 H Lymphocytes # (Manual) 0.2 L Monocytes # (Manual) 2.4 H Eosinophils # (Manual) Basophils # (Manual) PT INR POC ABG pH POC ABG pCO2 POC ABG pO2 Sodium Potassium Chloride Carbon Dioxide BUN Creatinine Glucose POC Glucose 183 H 201 H Calcium Phosphorus Magnesium AST ALT Alkaline Phosphatase Troponin T C-Reactive Protein Total Protein Albumin HDL Cholesterol Miscellaneous Test Crossmatch 08/24/17 08/24/17 08/24/17 09:30 12:04 18:04 WBC RBC Hgb Hct MCV RDW Plt Count Lymph % (Auto) [place] % (Auto) [place] # Seg Neutrophils % Seg Neuts % (Manual) Lymphocytes % (Manual) Monocytes % (Manual) Nucleated RBC % Seg Neutrophils # Seg Neutrophils # Man Lymphocytes # (Manual) Monocytes # (Manual) Eosinophils # (Manual) Basophils # (Manual) PT INR POC ABG pH POC ABG pCO2 POC ABG pO2 Sodium Potassium Chloride Carbon Dioxide BUN 46 H Creatinine 2.5 H Glucose 176 H POC Glucose 181 H 189 H Calcium Phosphorus Magnesium AST ALT Alkaline Phosphatase Troponin T C-Reactive Protein Total Protein Albumin HDL Cholesterol Miscellaneous Test Crossmatch 08/24/17 08/25/17 23:05 05:05 WBC RBC Hgb Hct MCV RDW Plt Count Lymph % (Auto) [place] % (Auto) [place] # Seg Neutrophils % Seg Neuts % (Manual) Lymphocytes % (Manual) Monocytes % (Manual) Nucleated RBC % Seg Neutrophils # Seg Neutrophils # Man Lymphocytes # (Manual) Monocytes # (Manual) Eosinophils # (Manual) Basophils # (Manual) PT INR POC ABG pH POC ABG pCO2 POC ABG pO2 Sodium Potassium Chloride Carbon Dioxide BUN Creatinine Glucose POC Glucose 175 H 190 H Calcium Phosphorus Magnesium AST ALT Alkaline Phosphatase Troponin T C-Reactive Protein Total Protein Albumin HDL Cholesterol Miscellaneous Test Crossmatch
[2017-08-25 08:37] LABS: BUN/Creatinine Ratio 6.4; Chloride 100.3 mmol/L (98-107)
--- NOTE | 2017-08-25 09:05 | Progress Note ---
Assessment and Plan Assessment and plan: --Septic shock. Resolved --Sepsis secondary to peritonitis /catheter related complex UTI present on admission .continue meropenem and Diflucan per ID --Acute hypoxic respiratory failure. s/p extubation. On Ventimask --End-stage renal disease , PD catheter removed, Vas-Cath placement, hemodialysis per schedule --Anemia secondary to end-stage renal disease; received 1 unit of PRBC , hemoglobin proved --Hypophosphatemia/hypomagnesemia ;corrected --Urinary retention/ ? Infected stents. Urology evaluated the patient --Bowel obstruction / status post exploratory lap with removal of PD catheter as a cause of obstruction. --Peritonitis /small bowel obstruction , s/p G-tube placement, abdominal washout , removal of PD catheter. surgery following. --Ulcerative esophagitis/small gastric ulcer on EGD. Continue current medications --Severe Protein calorie malnutrition., Continue TPN and supportive care --Leukocytosis. Tending down, Secondary to peritonitis, complex complicated UTI, ID and hematology following --DVT prophylaxis; SCDs, add heparin renal dose --Physical therapy occupational therapy evaluation and treat Plan of care discussed with the surgeon , stable to transfer out of ICU Plan of care discussed with the patient and her nurse Critical care time 31 minutes The high probability of a clinically significant, sudden or life threatening deterioration of the [hemodynamic, respiratory, renal, gastrointestinal] system( s) required my full and direct attention, intervention and personal management. The aggregate critical care time was [31] minutes. This time is in addition to time spent performing reported procedures but includes the following: [x] Data Review and interpretation [x] Patient assessment and monitoring of vital signs [x] Documentation [x] Medication orders and management History Interval history: Patient seen and examined this morning No new complaints, off pressors Alert and awake and responding appropriately Vital signs reviewed Hospitalist Physical - Constitutional Vitals: Temp Pulse Resp BP Pulse Ox 98.3 F 100 H 23 122/77 99 08/25/17 08:00 08/25/17 08:46 08/25/17 08:46 08/25/17 08:46 08/25/17 08:46 General appearance: Present: no acute distress, well-nourished, obese - EENT Eyes: Present: PERRL, EOM intact - Neck Neck: Present: supple, normal ROM - Respiratory Respiratory effort: normal Respiratory: right: other, bilateral: diminished, negative: rales, rhonchi - Cardiovascular Rhythm: regular Heart Sounds: Present: S1 & S2 - Extremities Extremities: no ischemia Extremity abnormal: edema - Abdominal General gastrointestinal: soft, non-tender, non-distended, absent bowel sounds, other (drainage in place/surgical dressing intact) - Integumentary Integumentary: Present: clear, warm - Psychiatric Psychiatric: appropriate mood/affect, cooperative - Neurologic Neurologic: CNII-XII intact, moves all extremities Results - Labs CBC & Chem 7: 08/24/17 04:00 08/25/17 07:02 Labs: Laboratory Last Values WBC 34.2 K/mm3 (4.5-11.0) H 08/24/17 04:00 RBC 2.86 M/mm3 (3.65-5.03) L 08/24/17 04:00 Hgb 8.4 gm/dl (10.1-14.3) L 08/24/17 04:00 Hct 25.9 % (30.3-42.9) L 08/24/17 04:00 MCV 91 fl (79-97) 08/24/17 04:00 MCH 30 pg (28-32) 08/24/17 04:00 MCHC 33 % (30-34) 08/24/17 04:00 RDW 17.9 % (13.2-15.2) H 08/24/17 04:00 Plt Count 333 K/mm3 (140-440) 08/24/17 04:00 Lymph % (Auto) Institution Librarian 08/19/17 07:37 [place] % (Auto) Institution Librarian 08/19/17 07:37 Eos % (Auto) Institution Librarian 08/19/17 07:37 Baso % (Auto) Institution Librarian 08/19/17 07:37 Lymph # Institution Librarian 08/19/17 07:37 [place] # Institution Librarian 08/19/17 07:37 Eos # Institution Librarian 08/19/17 07:37 Baso # Institution Librarian 08/19/17 07:37 Add Manual Diff Complete 08/24/17 04:00 Total Counted 200 08/24/17 04:00 Seg Neutrophils % Institution Librarian 08/19/17 07:37 Seg Neuts % (Manual) 85.0 % (40.0-70.0) H 08/24/17 04:00 Band Neutrophils % 6.0 % 08/24/17 04:00 Lymphocytes % (Manual) 0.5 % (13.4-35.0) L 08/24/17 04:00 Reactive Lymphs % (Man) 0 % 08/24/17 04:00 Monocytes % (Manual) 7.0 % (0.0-7.3) 08/24/17 04:00 Eosinophils % (Manual) 0 % (0.0-4.3) 08/24/17 04:00 Basophils % (Manual) 0 % (0.0-1.8) 08/24/17 04:00 Metamyelocytes % 1.5 % 08/24/17 04:00 Myelocytes % 0 % 08/24/17 04:00 Promyelocytes % 0 % 08/24/17 04:00 Blast Cells % 0 % 08/24/17 04:00 Nucleated RBC % 1.0 % (0.0-0.9) H 08/24/17 04:00 Seg Neutrophils # Institution Librarian 08/19/17 07:37 Seg Neutrophils # Man 29.1 K/mm3 (1.8-7.7) H 08/24/17 04:00 Band Neutrophils # 2.1 K/mm3 08/24/17 04:00 Lymphocytes # (Manual) 0.2 K/mm3 (1.2-5.4) L 08/24/17 04:00 Abs React Lymphs (Man) 0.0 K/mm3 08/24/17 04:00 Monocytes # (Manual) 2.4 K/mm3 (0.0-0.8) H 08/24/17 04:00 Eosinophils # (Manual) 0.0 K/mm3 (0.0-0.4) 08/24/17 04:00 Basophils # (Manual) 0.0 K/mm3 (0.0-0.1) 08/24/17 04:00 Metamyelocytes # 0.5 K/mm3 08/24/17 04:00 Myelocytes # 0.0 K/mm3 08/24/17 04:00 Promyelocytes # 0.0 K/mm3 08/24/17 04:00 Blast Cells # 0.0 K/mm3 08/24/17 04:00 WBC Morphology Not Reportable 08/24/17 04:00 Hypersegmented Neuts Not Reportable 08/24/17 04:00 Hyposegmented Neuts Not Reportable 08/24/17 04:00 Hypogranular Neuts Not Reportable 08/24/17 04:00 Smudge Cells Rare 08/24/17 04:00 Toxic Granulation Not Reportable 08/24/17 04:00 Toxic Vacuolation Not Reportable 08/24/17 04:00 Dohle Bodies Not Reportable 08/24/17 04:00 Pelger-Huet Anomaly Not Reportable 08/24/17 04:00 Ariel Rods Not Reportable 08/24/17 04:00 Platelet Estimate Appears normal 08/24/17 04:00 Clumped Platelets Not Reportable 08/24/17 04:00 Plt Clumps, EDTA Not Reportable 08/24/17 04:00 Large Platelets Not Reportable 08/24/17 04:00 Giant Platelets Not Reportable 08/24/17 04:00 Platelet Satelliting Not Reportable 08/24/17 04:00 Plt Morphology Comment Not Reportable 08/24/17 04:00 RBC Morphology Not Reportable 08/24/17 04:00 Dimorphic RBCs Not Reportable 08/24/17 04:00 Polychromasia Few 08/24/17 04:00 Hypochromasia 1+ 08/24/17 04:00 Poikilocytosis Not Reportable 08/24/17 04:00 Anisocytosis 1+ 08/24/17 04:00 Microcytosis Not Reportable 08/24/17 04:00 Macrocytosis Not Reportable 08/24/17 04:00 Spherocytes Not Reportable 08/24/17 04:00 Pappenheimer Bodies Not Reportable 08/24/17 04:00 Sickle Cells Not Reportable 08/24/17 04:00 Target Cells 1+ 08/24/17 04:00 Tear Drop Cells Not Reportable 08/24/17 04:00 Ovalocytes Few 08/24/17 04:00 Stomatocytes Few 08/20/17 03:20 Helmet Cells Not Reportable 08/24/17 04:00 Vera-Lavelle Bodies Not Reportable 08/24/17 04:00 [place] Rings Not Reportable 08/24/17 04:00 [place] Cells Not Reportable 08/24/17 04:00 Bite Cells Not Reportable 08/24/17 04:00 Crenated Cell Not Reportable 08/24/17 04:00 Elliptocytes Not Reportable 08/24/17 04:00 Acanthocytes (Spur) Not Reportable 08/24/17 04:00 Rouleaux Not Reportable 08/24/17 04:00 Hemoglobin C Crystals Not Reportable 08/24/17 04:00 Schistocytes Not Reportable 08/24/17 04:00 Malaria parasites Not Reportable 08/24/17 04:00 Jovanni Bodies Not Reportable 08/24/17 04:00 Hem Pathologist Commnt No 08/24/17 04:00 PT 16.0 Sec. (12.2-14.9) H 08/17/17 11:20 INR 1.29 (0.87-1.13) H 08/17/17 11:20 APTT 35.5 Sec. (24.2-36.6) 08/12/17 05:50 POC ABG pH 7.481 (7.35-7.45) H 08/21/17 03:14 POC ABG pCO2 29.6 (35-45) L 08/21/17 03:14 POC ABG pO2 104 (80-105) 08/21/17 03:14 POC ABG HCO3 22.1 08/21/17 03:14 POC ABG Total CO2 23 08/21/17 03:14 POC ABG O2 Sat 98 08/21/17 03:14 POC ABG Base Excess -1 08/21/17 03:14 VBG pH 7.462 (7.320-7.420) H 08/08/17 14:52 FiO2 30 % 08/21/17 03:14 Sodium 141 mmol/L (137-145) 08/25/17 07:02 Potassium 5.0 mmol/L (3.6-5.0) 08/25/17 07:02 Chloride 100.3 mmol/L (98-107) 08/25/17 07:02 Carbon Dioxide 24 mmol/L (22-30) 08/25/17 07:02 Anion Gap 22 mmol/L 08/25/17 07:02 BUN 32 mg/dL (7-17) H 08/25/17 07:02 Creatinine 5.0 mg/dL (0.7-1.2) H D 08/25/17 07:02 Estimated GFR 11 ml/min 08/25/17 07:02 BUN/Creatinine Ratio 6.40 % 08/25/17 07:02 Glucose 117 mg/dL (65-100) H 08/25/17 07:02 POC Glucose 190 (70-105) H 08/25/17 05:05 Lactic Acid 1.60 mmol/L (0.7-2.0) 08/17/17 11:20 Calcium 8.0 mg/dL (8.4-10.2) L 08/25/17 07:02 Phosphorus 4.50 mg/dL (2.5-4.5) 08/24/17 09:30 Magnesium 2.00 mg/dL (1.7-2.3) 08/25/17 07:02 Total Bilirubin 0.40 mg/dL (0.1-1.2) 08/21/17 06:50 Direct Bilirubin 0.2 mg/dL (0-0.2) 08/08/17 14:11 Indirect Bilirubin 0.3 mg/dL 08/08/17 14:11 AST 17 units/L (5-40) 08/21/17 06:50 ALT < 5 units/L (7-56) L 08/21/17 06:50 Alkaline Phosphatase 164 units/L (35-129) H 08/21/17 06:50 Ammonia 25.0 umol/L (25-60) 08/08/17 14:52 Troponin T 0.132 ng/mL (0.00-0.029) H* 08/09/17 13:25 C-Reactive Protein 30.70 mg/dL (0.00-1.30) H 08/22/17 16:25 NT-Pro-B Natriuret Pep 6156 pg/mL (0-900) H 08/08/17 14:11 Total Protein 4.7 g/dL (6.3-8.2) L 08/21/17 06:50 Albumin 1.4 g/dL (3.9-5) L 08/21/17 06:50 Albumin/Globulin Ratio 0.4 % 08/21/17 06:50 Triglycerides 62 mg/dL (2-149) 08/08/17 21:23 Cholesterol 91 mg/dL (50-199) 08/08/17 21:23 LDL Cholesterol Direct 53 mg/dL (50-130) 08/08/17 21:23 HDL Cholesterol 26 mg/dL (40-59) L 08/08/17 21:23 Cholesterol/HDL Ratio 3.50 % 08/08/17 21:23 Amylase 45 units/L (27-131) 08/16/17 09:50 Lipase 34 units/L (13-60) 08/16/17 09:50 TSH 6.580 mlU/mL (0.270-4.200) H 08/08/17 14:22 Free T4 1.46 ng/dL (0.76-1.46) 08/08/17 14:22 Total Cortisol 30.1 mcg/dL () 08/13/17 06:14 Urine Color Yellow (Yellow) 08/08/17 20:15 Urine Turbidity Turbid (Clear) 08/08/17 20:15 Urine pH 8.0 (5.0-7.0) H 08/08/17 20:15 Ur Specific [place] 1.015 (1.003-1.030) 08/08/17 20:15 Urine Protein 100 mg/dl mg/dL (Negative) 08/08/17 20:15 Urine Glucose (UA) Neg mg/dL (Negative) 08/08/17 20:15 Urine Ketones Neg mg/dL (Negative) 08/08/17 20:15 Urine Blood Mod (Negative) 08/08/17 20:15 Urine Nitrite Neg (Negative) 08/08/17 20:15 Urine Bilirubin Neg (Negative) 08/08/17 20:15 Urine Urobilinogen < 2.0 mg/dL (<2.0) 08/08/17 20:15 Ur Leukocyte Esterase Lg (Negative) 08/08/17 20:15 Urine WBC (Auto) 24.0 /HPF (0.0-6.0) H 08/08/17 20:15 Urine RBC (Auto) 3.0 /HPF (0.0-6.0) 08/08/17 20:15 U Epithel Cells (Auto) 3.0 /HPF (0-13.0) 08/08/17 20:15 Urine Bacteria (Auto) 4+ /HPF (Negative) 08/08/17 20:15 Urine Mucus 3+ /HPF 08/08/17 20:15 Fluid Type Peritoneal 08/08/17 18:18 Fluid Color Straw 08/08/17 18:18 Fluid Appearance Clear 08/08/17 18:18 Fluid pH 7.74 08/08/17 18:18 Fluid WBC 4 /mm3 08/08/17 18:18 Fluid RBC 1 /mm3 08/08/17 18:18 Fluid Seg Neutrophils 12 % 08/08/17 18:18 Fluid Lymphocytes 0 % 08/08/17 18:18 Fluid Reactive Lymphs 0 % 08/08/17 18:18 Fluid Monocytes 1 % 08/08/17 18:18 Fluid Eosinophils 0 % 08/08/17 18:18 Fluid Basophils 0 % 08/08/17 18:18 Fluid Glucose 315 mg/dL (40-70) H 08/08/17 18:18 Random Vancomycin 19.5 ug/mL (0-40.0) 08/22/17 03:40 Hep Bs Antigen Non-reactive (Negative) 08/22/17 03:40 Hepatitis C Antibody Non-reactive (NonReactive) 08/22/17 03:40 Miscellaneous Test Flexitest 1 H 08/17/17 11:20 Blood Type O POSITIVE 08/21/17 08:00 Antibody Screen Negative 08/21/17 08:00 Crossmatch See Detail 08/21/17 08:00
[2017-08-25] MEDS: PROTONIX IV SCH ×2 (09:47→22:16)
[2017-08-25] MEDS: DIFLUCAN 200 MG/100 ML BAG IV SCH (09:47)
[2017-08-25 10:18] LABS: Phosphorous 4.4 mg/dL (2.5-4.5)
--- NOTE | 2017-08-25 10:35 | Progress Note ---
Assessment and Plan - Patient Problems (1) SBO (small bowel obstruction) Current Visit: Yes Status: Acute Plan to address problem: 62 y.o. F s/p ex-lap, lysis of adhesions, G tube placement, MERVIN drain placement: POD 7 gastric perforation: poor overall nutritional status making the defect difficult to re-seal despite intra-luminal decompression and external drainage. Mervin now brown/serous. Once MERVIN drainage is much less and appears serous, will retest for leak via methylene blue test (will likely be several days) Record MERVIN output and G tube output in order to assess if she is adequately being decompressed. . Monitor output and color. Likely prolonged healing time of small gastric perforation. Keep NPO. No manipulation of NG or G or MERVIN. Keep NG to low wall sunction. Prolonged healing anticipated due to poor nutrition and steroids. Will not start vit A supplementation due to possible vit A toxicity from supplementation due to renal failure. -continue PPI ID: Covering Gut grace 2/2 perforation: merrom, diflucan and vanco - per ID Leukocytosis improving sepsis: likely due intra-abdominal process. Weaned off levo. ID following. f/u rpt cultures continue abx, and abdominal drainage. TPN for nutrition Resp: s/p extubation. Vent with humidfied O2. Rec. Chest PT. renal failure: HD per renal. will defer to renal for dialysis and fluid/ electrolyte management. HD Saturday. HD cath. Right fem. Sacral wound and RLE wound: wound care following. GI proph: PPI DVT proph: hep sub q restarted. no contraindication for sub q heparin from surgical standpoint Subjective Narrative: Pt seen and examined at bedside. No acute events overnight. Pt weaned off of levo. she is more alert and awake this am. She denies pain. She admits to sob. Outputs: NG minimal G tube 300 + bilious MERVIN: 200+ brown/serous Ivan: 0 Afebrile Right subclav. wells Rt fem HD catheter. Objective Vital Signs - 12hr 08/24/17 08/24/17 08/24/17 22:46 23:00 23:16 Temperature Pulse Rate 104 H 102 H 101 H Pulse Rate [ Apical] Pulse Rate [ From Monitor] Respiratory 16 21 22 Rate Blood Pressure 110/37 117/51 117/51 O2 Sat by Pulse 100 100 100 Oximetry 08/24/17 08/24/17 08/25/17 23:30 23:46 00:00 Temperature 98.1 F Pulse Rate 103 H 104 H 103 H Pulse Rate [ Apical] Pulse Rate [ From Monitor] Respiratory 24 20 13 Rate Blood Pressure 117/51 111/55 111/55 O2 Sat by Pulse 100 99 100 Oximetry 08/25/17 08/25/17 08/25/17 00:16 00:30 00:46 Temperature Pulse Rate 103 H 103 H 104 H Pulse Rate [ Apical] Pulse Rate [ From Monitor] Respiratory 23 23 22 Rate Blood Pressure 94/68 94/68 104/64 O2 Sat by Pulse 100 100 100 Oximetry 08/25/17 08/25/17 08/25/17 01:00 01:16 01:30 Temperature Pulse Rate 102 H 105 H 104 H Pulse Rate [ Apical] Pulse Rate [ From Monitor] Respiratory 19 14 23 Rate Blood Pressure 114/69 114/69 110/61 O2 Sat by Pulse 100 81 L 99 Oximetry 08/25/17 08/25/17 08/25/17 01:46 02:00 02:16 Temperature Pulse Rate 103 H 103 H 102 H Pulse Rate [ Apical] Pulse Rate [ From Monitor] Respiratory 22 14 22 Rate Blood Pressure 110/61 110/61 101/67 O2 Sat by Pulse 100 100 99 Oximetry 08/25/17 08/25/17 08/25/17 02:30 02:46 03:00 Temperature Pulse Rate 104 H 102 H 103 H Pulse Rate [ Apical] Pulse Rate [ From Monitor] Respiratory 22 22 19 Rate Blood Pressure 103/64 103/64 110/72 O2 Sat by Pulse 98 100 95 Oximetry 08/25/17 08/25/17 08/25/17 03:16 03:27 03:30 Temperature 98.8 F Pulse Rate 104 H 100 H Pulse Rate [ Apical] Pulse Rate [ From Monitor] Respiratory 20 22 Rate Blood Pressure 110/72 116/35 O2 Sat by Pulse 100 92 Oximetry 08/25/17 08/25/17 08/25/17 03:46 04:00 04:16 Temperature Pulse Rate 104 H 102 H 103 H Pulse Rate [ Apical] Pulse Rate [ From Monitor] Respiratory 26 H 23 25 H Rate Blood Pressure 116/35 97/30 97/30 O2 Sat by Pulse 100 91 Oximetry 08/25/17 08/25/17 08/25/17 04:30 04:46 05:00 Temperature Pulse Rate 103 H 102 H 101 H Pulse Rate [ Apical] Pulse Rate [ From Monitor] Respiratory 19 23 22 Rate Blood Pressure 111/94 111/94 114/85 O2 Sat by Pulse 100 68 L Oximetry 08/25/17 08/25/17 08/25/17 05:16 05:30 05:46 Temperature Pulse Rate 101 H 101 H 103 H Pulse Rate [ Apical] Pulse Rate [ From Monitor] Respiratory 22 24 23 Rate Blood Pressure 114/85 114/85 110/56 O2 Sat by Pulse 92 98 Oximetry 08/25/17 08/25/17 08/25/17 06:00 06:16 06:30 Temperature Pulse Rate 102 H 102 H 102 H Pulse Rate [ Apical] Pulse Rate [ From Monitor] Respiratory 22 23 20 Rate Blood Pressure 124/80 124/80 124/80 O2 Sat by Pulse 99 100 Oximetry 08/25/17 08/25/17 08/25/17 06:46 07:00 07:16 Temperature Pulse Rate 105 H 105 H 103 H Pulse Rate [ 108 H Apical] Pulse Rate [ 108 H From Monitor] Respiratory 20 22 23 Rate Blood Pressure 104/58 109/85 109/85 O2 Sat by Pulse 100 99 100 Oximetry 08/25/17 08/25/17 08/25/17 07:19 07:30 07:46 Temperature Pulse Rate 103 H 106 H Pulse Rate [ Apical] Pulse Rate [ From Monitor] Respiratory 23 25 H Rate Blood Pressure 109/57 109/57 O2 Sat by Pulse 99 72 L 100 Oximetry 08/25/17 08/25/17 08/25/17 08:00 08:16 08:30 Temperature 98.3 F Pulse Rate 103 H 103 H 102 H Pulse Rate [ Apical] Pulse Rate [ From Monitor] Respiratory 22 23 24 Rate Blood Pressure 98/72 98/72 122/77 O2 Sat by Pulse 99 100 94 Oximetry 08/25/17 08:46 Temperature Pulse Rate 100 H Pulse Rate [ Apical] Pulse Rate [ From Monitor] Respiratory 23 Rate Blood Pressure 122/77 O2 Sat by Pulse 99 Oximetry - General physical appearance no distress, no pain, obese - Eyes PERRL - Respiratory normal expansion, other (diminshed at bases ) - Abdomen soft, other (tender epigastric. midline incision: serous/yellow discharge at mid portion: 3 kelli removed. expressed copious yellow liquid, non foul smelling. Fat necrosis seen at lateral edges of incision. wound irrigated with NS. packed and covered with 4 x4s. PD cath wound site: packing removed. healing. no discharge. wound irrigated and light packed. MERVIN and G tube in place. no rebound no guarding ) - Genitourinary other (ivan ) - Integumentary no rash, no growths - Neurologic normal sensation - Musculoskeletal other (+2 MS upper and lower extremities BL. +2 edema upper and lower extremities. ) - Psychiatric oriented to person - Labs 08/24/17 04:00 08/25/17 07:02 Diabetes panel 08/25/17 Range/Units 07:02 Sodium 141 (137-145) mmol/L Potassium 5.0 (3.6-5.0) mmol/L Chloride 100.3 (98-107) mmol/L Carbon Dioxide 24 (22-30) mmol/L BUN 32 H (7-17) mg/dL Creatinine 5.0 H D (0.7-1.2) mg/dL Glucose 117 H (65-100) mg/dL Calcium 8.0 L (8.4-10.2) mg/dL Calcium panel 08/25/17 Range/Units 07:02 Calcium 8.0 L (8.4-10.2) mg/dL Phosphorus 4.40 (2.5-4.5) mg/dL Pituitary panel 08/25/17 Range/Units 07:02 Sodium 141 (137-145) mmol/L Potassium 5.0 (3.6-5.0) mmol/L Chloride 100.3 (98-107) mmol/L Carbon Dioxide 24 (22-30) mmol/L BUN 32 H (7-17) mg/dL Creatinine 5.0 H D (0.7-1.2) mg/dL Glucose 117 H (65-100) mg/dL Calcium 8.0 L (8.4-10.2) mg/dL Adrenal panel 08/25/17 Range/Units 07:02 Sodium 141 (137-145) mmol/L Potassium 5.0 (3.6-5.0) mmol/L Chloride 100.3 (98-107) mmol/L Carbon Dioxide 24 (22-30) mmol/L BUN 32 H (7-17) mg/dL Creatinine 5.0 H D (0.7-1.2) mg/dL Glucose 117 H (65-100) mg/dL Calcium 8.0 L (8.4-10.2) mg/dL
[2017-08-25] MEDS: HEPARIN SUB-Q SCH ×2 (13:08→21:35)
[2017-08-25] MEDS: MERREM 1,000 MG in NACL 0.9% 100 ML IV SCH (13:09)
[2017-08-25] MEDS ORDERED: NACL 0.9% 100 ML IV PRN (14:28)
--- NOTE | 2017-08-25 14:28 | Progress Note ---
Assessment and Plan S/p Abd surgery - Drain in place. F/u per surgeon ESRD - HD in am Vitals - Vasopressor as tolerated Lytes - Stable, f/u labs Periph Edema - UF on HD as tolerated Nutrition - Continue TPN pending bowel use Subjective Date of service: 08/25/17 Principal diagnosis: /anemia, poor oral intake. Objective - Vital Signs Vital signs: Vital Signs - 12hr 08/25/17 08/25/17 08/25/17 02:30 02:46 03:00 Temperature Pulse Rate 104 H 102 H 103 H Pulse Rate [ Apical] Pulse Rate [ From Monitor] Respiratory 22 22 19 Rate Blood Pressure 103/64 103/64 110/72 O2 Sat by Pulse 98 100 95 Oximetry 08/25/17 08/25/17 08/25/17 03:16 03:27 03:30 Temperature 98.8 F Pulse Rate 104 H 100 H Pulse Rate [ Apical] Pulse Rate [ From Monitor] Respiratory 20 22 Rate Blood Pressure 110/72 116/35 O2 Sat by Pulse 100 92 Oximetry 08/25/17 08/25/17 08/25/17 03:46 04:00 04:16 Temperature Pulse Rate 104 H 102 H 103 H Pulse Rate [ Apical] Pulse Rate [ From Monitor] Respiratory 26 H 23 25 H Rate Blood Pressure 116/35 97/30 97/30 O2 Sat by Pulse 100 91 Oximetry 08/25/17 08/25/17 08/25/17 04:30 04:46 05:00 Temperature Pulse Rate 103 H 102 H 101 H Pulse Rate [ Apical] Pulse Rate [ From Monitor] Respiratory 19 23 22 Rate Blood Pressure 111/94 111/94 114/85 O2 Sat by Pulse 100 68 L Oximetry 08/25/17 08/25/17 08/25/17 05:16 05:30 05:46 Temperature Pulse Rate 101 H 101 H 103 H Pulse Rate [ Apical] Pulse Rate [ From Monitor] Respiratory 22 24 23 Rate Blood Pressure 114/85 114/85 110/56 O2 Sat by Pulse 92 98 Oximetry 08/25/17 08/25/17 08/25/17 06:00 06:16 06:30 Temperature Pulse Rate 102 H 102 H 102 H Pulse Rate [ Apical] Pulse Rate [ From Monitor] Respiratory 22 23 20 Rate Blood Pressure 124/80 124/80 124/80 O2 Sat by Pulse 99 100 Oximetry 1008/25/17 08/25/17 06:46 07:00 07:16 Temperature Pulse Rate 105 H 105 H 103 H Pulse Rate [ 108 H Apical] Pulse Rate [ 108 H From Monitor] Respiratory 20 22 23 Rate Blood Pressure 104/58 109/85 109/85 O2 Sat by Pulse 100 99 100 Oximetry 08/25/17 08/25/17 08/25/17 07:19 07:30 07:46 Temperature Pulse Rate 103 H 106 H Pulse Rate [ Apical] Pulse Rate [ From Monitor] Respiratory 23 25 H Rate Blood Pressure 109/57 109/57 O2 Sat by Pulse 99 72 L 100 Oximetry 08/25/17 08/25/17 08/25/17 08:00 08:16 08:30 Temperature 98.3 F Pulse Rate 103 H 103 H 102 H Pulse Rate [ Apical] Pulse Rate [ From Monitor] Respiratory 22 23 24 Rate Blood Pressure 98/72 98/72 122/77 O2 Sat by Pulse 99 100 94 Oximetry 08/25/17 08/25/17 08/25/17 08:46 09:00 09:16 Temperature Pulse Rate 100 H 101 H 103 H Pulse Rate [ Apical] Pulse Rate [ From Monitor] Respiratory 23 24 22 Rate Blood Pressure 122/77 115/64 115/64 O2 Sat by Pulse 99 95 100 Oximetry 08/25/17 08/25/17 08/25/17 09:30 09:46 10:00 Temperature Pulse Rate 101 H 101 H 101 H Pulse Rate [ Apical] Pulse Rate [ From Monitor] Respiratory 21 22 22 Rate Blood Pressure 119/92 119/92 103/68 O2 Sat by Pulse 98 100 Oximetry 08/25/17 08/25/17 08/25/17 10:16 10:30 10:46 Temperature Pulse Rate 101 H 102 H 103 H Pulse Rate [ Apical] Pulse Rate [ From Monitor] Respiratory 24 21 21 Rate Blood Pressure 103/68 123/63 103/68 O2 Sat by Pulse 100 98 100 Oximetry 08/25/17 08/25/17 08/25/17 11:00 11:16 11:30 Temperature Pulse Rate 100 H 102 H 101 H Pulse Rate [ 101 H Apical] Pulse Rate [ 101 H From Monitor] Respiratory 25 H 24 23 Rate Blood Pressure 103/68 103/68 113/65 O2 Sat by Pulse 93 100 91 Oximetry 08/25/17 08/25/17 08/25/17 11:46 12:00 12:16 Temperature 98.3 F Pulse Rate 101 H 101 H 103 H Pulse Rate [ Apical] Pulse Rate [ From Monitor] Respiratory 22 22 23 Rate Blood Pressure 103/68 110/64 113/65 O2 Sat by Pulse 97 100 Oximetry 08/25/17 08/25/17 08/25/17 12:30 12:46 13:00 Temperature Pulse Rate 102 H 102 H 100 H Pulse Rate [ Apical] Pulse Rate [ From Monitor] Respiratory 21 22 23 Rate Blood Pressure 100/70 110/64 88/64 O2 Sat by Pulse 100 98 100 Oximetry 08/25/17 13:16 Temperature Pulse Rate 103 H Pulse Rate [ Apical] Pulse Rate [ From Monitor] Respiratory 23 Rate Blood Pressure 88/64 O2 Sat by Pulse 89 Oximetry - General Appearance General appearance: other (Arousable) Respiratory: Present: Other (On face mask) Cardiology: regular, S1S2 Gastrointestinal: other (Dressing with drain) - Lab 08/24/17 04:00 08/25/17 07:02 Most recent lab results Calcium 8.0 mg/dL (8.4-10.2) L 08/25/17 07:02 Phosphorus 4.40 mg/dL (2.5-4.5) 08/25/17 07:02 Magnesium 2.00 mg/dL (1.7-2.3) 08/25/17 07:02
--- NOTE | 2017-08-25 15:05 | Progress Note ---
Assessment and Plan Assessment: 1) Sepsis with septic shock: off pressors; source bowel obstruction / suspect ? gastric perforation. -CRP=28-->32-->34 -->30 -WBC=48 -->44 -->34K -procalcitonin=1.3 2) Bowel obstruction / suspect ?gastric perforation ? peritonitis -S/P Exlap, G-tube placement, EGD, abdominal washout and removal of PD -OR findings - bowel obstruction due to entanglement of PD cath, abscess cavity in LUQ and ? suspect perforation of unclear location -Repeat CT - improved ascitis 3) CA-UTI: chronic ivan exchanged every 4 weeks and ureteral stents in place which are exchanged every 6 months ? urine cultures still pending should r/o MDR bacteria 4) Paraplegia 5) ESRD on PD - no evidence of peritonitis, wbc count 2. [employer] and Diphteroids on peritoneal fluid likely contaminants. 6) Recent pancreatitis 7) Penicillin allergy-has taken keflex w/o problems Plan: -continue meropenem day , fluconazole day -stop vancomycin day 9 - no evidence of MRSA -remove femoral cath in near future Thank you Dr Davis for your consultation, will follow up with you. Ramya Lang MD Infectious Diseases Specialist [facility] ([facility] M [phone] O [phone] Subjective Date of service: 08/25/17 Principal diagnosis: /anemia, poor oral intake. Interval history: More alert on ventimask, off pressors. No fever. Microbiology: Blood cultures: 08/08 neg 08/12 neg 08/16 neg 08/20 neg Urine cultures: 08/08 10-100K skin grace Respiratory cultures: Wound cultures: Stool cultures: Other: 08/08 peritoneal fluid + [employer]/Diphteroids Current Antimicrobials: 08/13 meropenem 08/16 fluconazole 08/16 vancomycin Previous Antimicrobials: 08/10 levaquin Objective - Exam Narrative Exam: General appearance: alert talking in NAD Eyes: anicteric sclerae, moist conjunctivae; no lid-lag; PERRLA HENT: Atraumatic; limited OP Neck: Trachea midline; supple, no thyromegaly or lymphadenopathy Lungs: coarse BS moreno CV: RRR, no murmurs Abdomen: soft, midline surgical wound with kelli a drain covered with surg dressings Gtube Extremities: + peripheral edema + leg ulcer Skin: Normal temperature, turgor and texture; no rash, ulcers or subcutaneous nodules Psych: stable. Neuro: alert talking moving all extremities Lines: Right vascath femoral / Right IJ Nair 08/16 - Constitutional Vitals: Vital Signs Temp Pulse Resp BP Pulse Ox 98.3 F 103 H 23 88/64 89 08/25/17 12:00 08/25/17 13:16 08/25/17 13:16 08/25/17 13:16 08/25/17 13:16 Temperature -Last 24 Hours Temperature 98.3 F Temperature 98.3 F Temperature 98.8 F Temperature 98.1 F Temperature 97.8 F Temperature 98.2 F - Labs CBC & Chem 7: 08/24/17 04:00 08/25/17 07:02 Labs: Abnormal lab results 08/24/17 08/24/17 08/24/17 Range/Units 12:04 18:04 23:05 BUN (7-17) mg/dL Creatinine (0.7-1.2) mg/dL Glucose (65-100) mg/dL POC Glucose 181 H 189 H 175 H (70-105) Calcium (8.4-10.2) mg/dL 08/25/17 08/25/17 Range/Units 05:05 07:02 BUN 32 H (7-17) mg/dL Creatinine 5.0 H D (0.7-1.2) mg/dL Glucose 117 H (65-100) mg/dL POC Glucose 190 H (70-105) Calcium 8.0 L (8.4-10.2) mg/dL
[2017-08-25] MEDS ORDERED: TPN ADULT 1,800 ML IV SCH (20:00)
--- NOTE | 2017-08-25 20:24 | Progress Note ---
Assessment and Plan - Patient Problems (1) Leukocytosis Current Visit: Yes Status: Acute Qualifiers: Leukocytosis type: L Plan to address problem: See notes above. make sure that PD access is clean also. see notes. Probably infection from the infected PD catheter. improving. (2) Anemia Current Visit: Yes Status: Acute Qualifiers: Anemia type: A Iron deficiency anemia type: I Vitamin B12 deficiency anemia type: V Folate deficiency anemia type: F Bone marrow failure anemia type: B Hemolytic anemia type: H Other causes of anemia: O Chronic kidney disease stage: C Plan to address problem: see notes , monitor labs,. see notes above. continue to monitor labs with you. Subjective Date of service: 08/25/17 Principal diagnosis: /anemia, poor oral intake. Interval history: Patient seen today/examined, labs reviewed, case d/w she, and family.complaints of abdominal pain. Patient resting in bed in the ICU, post vascular procedure. labs reviewed, Reactive thrombocytosis, anemia of CD, leukocytosis from infection vs inflamatory process. Patient seen/examined, in bed in the ICU, on the vent post surgery.Labs reviewed , notes reviewed. will continue to monitor labs/patient with you. Replacement transfusion, if /when indicated. patient seen/examined, SBP75, on pressors., lethargic, on the vent, labs reviewed, wbc 39,000 Patient seen/examined, case reviewed, d/w her sister at the bed side. Patient seen/examined, labs reviewed, notes reviewed. severe septic shock from infected PD catheter The high wbc is all infection related. H?H low, and may get replacement transfusion with the next HD. Prognosis remain quite poor. Patient seen/examined, extubated, now on V Mask. labs reviewed. patient seen/examined, resting in bed, still some what lethargic . labs reviewed. Patient seen/examined, resting in bed., some difficulty with breathing./ lethargic. patient seen/examined, resting in bed, looked much better labs reviewed, and fair over all. Patient seen/examined, resting in bed, labs reviewed, case d/w her. Objective - Constitutional Vitals: Vital Signs - 12hr 08/25/17 08/25/17 08/25/17 08:30 08:46 09:00 Temperature Pulse Rate 102 H 100 H 101 H Pulse Rate [ Apical] Pulse Rate [ From Monitor] Respiratory 24 23 24 Rate Blood Pressure 122/77 122/77 115/64 O2 Sat by Pulse 94 99 95 Oximetry 08/25/17 08/25/17 08/25/17 09:16 09:30 09:46 Temperature Pulse Rate 103 H 101 H 101 H Pulse Rate [ Apical] Pulse Rate [ From Monitor] Respiratory 22 21 22 Rate Blood Pressure 115/64 119/92 119/92 O2 Sat by Pulse 100 98 Oximetry 08/25/17 08/25/17 08/25/17 10:00 10:16 10:30 Temperature Pulse Rate 101 H 101 H 102 H Pulse Rate [ Apical] Pulse Rate [ From Monitor] Respiratory 22 24 21 Rate Blood Pressure 103/68 103/68 123/63 O2 Sat by Pulse 100 100 98 Oximetry 08/25/17 08/25/17 08/25/17 10:46 11:00 11:16 Temperature Pulse Rate 103 H 100 H 102 H Pulse Rate [ Apical] Pulse Rate [ From Monitor] Respiratory 21 25 H 24 Rate Blood Pressure 103/68 103/68 103/68 O2 Sat by Pulse 100 93 100 Oximetry 08/25/17 08/25/17 08/25/17 11:30 11:46 12:00 Temperature 98.3 F Pulse Rate 101 H 101 H 101 H Pulse Rate [ 101 H Apical] Pulse Rate [ 101 H From Monitor] Respiratory 23 22 22 Rate Blood Pressure 113/65 103/68 110/64 O2 Sat by Pulse 91 97 Oximetry 08/25/17 08/25/17 08/25/17 12:16 12:30 12:46 Temperature Pulse Rate 103 H 102 H 102 H Pulse Rate [ Apical] Pulse Rate [ From Monitor] Respiratory 23 21 22 Rate Blood Pressure 113/65 100/70 110/64 O2 Sat by Pulse 100 100 98 Oximetry 08/25/17 08/25/17 08/25/17 13:00 13:16 13:30 Temperature Pulse Rate 100 H 103 H 102 H Pulse Rate [ Apical] Pulse Rate [ From Monitor] Respiratory 23 23 24 Rate Blood Pressure 88/64 88/64 109/70 O2 Sat by Pulse 100 89 73 L Oximetry 08/25/17 08/25/17 08/25/17 13:46 14:00 14:16 Temperature Pulse Rate 102 H 103 H 101 H Pulse Rate [ Apical] Pulse Rate [ From Monitor] Respiratory 22 23 19 Rate Blood Pressure 109/70 119/62 119/62 O2 Sat by Pulse 100 86 Oximetry 08/25/17 08/25/17 08/25/17 14:30 14:46 15:00 Temperature Pulse Rate 100 H 100 H 100 H Pulse Rate [ Apical] Pulse Rate [ From Monitor] Respiratory 24 21 24 Rate Blood Pressure 114/69 119/62 107/68 O2 Sat by Pulse 99 100 100 Oximetry 08/25/17 08/25/17 08/25/17 15:16 15:30 15:46 Temperature Pulse Rate 101 H 100 H 101 H Pulse Rate [ Apical] Pulse Rate [ From Monitor] Respiratory 24 22 26 H Rate Blood Pressure 114/69 117/60 117/60 O2 Sat by Pulse 100 98 99 Oximetry General appearance: Present: mild distress, well-nourished - EENT Eyes: PERRL, EOM intact ENT: hearing intact, clear oral mucosa Ears: bilateral: normal - Neck Neck: supple, normal ROM - Respiratory Respiratory: bilateral: diminished - Breasts Breasts: deferred - Cardiovascular Rhythm: regular Heart Sounds: Present: S1 & S2. Absent: gallop, rub Extremities: pulses intact, No edema, normal color, Full ROM - Gastrointestinal General gastrointestinal: Present: soft, non-tender, non-distended, normal bowel sounds Rectal Exam: deferred - Genitourinary Female genitourinary: deferred - Integumentary Integumentary: clear, warm, dry - Musculoskeletal Musculoskeletal: 1, strength equal bilaterally - Neurologic Neurologic: moves all extremities - Psychiatric Psychiatric: appropriate mood/affect - Labs CBC & Chem 7: 08/24/17 04:00 08/25/17 07:02 Labs: Abnormal lab results 08/24/17 08/24/17 08/24/17 Range/Units 12:04 18:04 23:05 BUN (7-17) mg/dL Creatinine (0.7-1.2) mg/dL Glucose (65-100) mg/dL POC Glucose 181 H 189 H 175 H (70-105) Calcium (8.4-10.2) mg/dL 08/25/17 08/25/17 Range/Units 05:05 07:02 BUN 32 H (7-17) mg/dL Creatinine 5.0 H D (0.7-1.2) mg/dL Glucose 117 H (65-100) mg/dL POC Glucose 190 H (70-105) Calcium 8.0 L (8.4-10.2) mg/dL
[2017-08-26] MEDS: HEPARIN SUB-Q SCH ×3 (05:58→22:41)
[2017-08-26 06:01] LABS: Hemoglobin 7.3 gm/dl (10.1-14.3); Mean Corpuscular HGB Conc 32 % (30-34); Mean Corpuscular Hemoglobin 30 pg (28-32); Mean Corpuscular Volume 93 fl (79-97); Platelet Count 340 K/mm3 (140-440); Red Blood Count 2.47 M/mm3 (3.65-5.03)
[2017-08-26 06:16] LABS: Red Cell Distribution Width 21.3 % (13.2-15.2); White Blood Count 33.5 K/mm3 (4.5-11.0)
[2017-08-26 06:27] LABS: Albumin/Globulin Ratio 0.7 %; BUN/Creatinine Ratio 23.52; Bilirubin,Total 0.5 mg/dL (0.1-1.2); Calcium 8.3 mg/dL (8.4-10.2); Chloride 101.8 mmol/L (98-107); Magnesium 2.6 mg/dL (1.7-2.3); Phosphorous 6.8 mg/dL (2.5-4.5); Potassium 5.2 mmol/L (3.6-5.0); Total Protein 4.8 g/dL (6.3-8.2)
[2017-08-26 07:03] LABS: Anisocytosis 1+; Basophils % (Manual) 0 % (0.0-1.8); Blastocytes % (Manual) 0 %; Diff Status Complete; Eosinophils % (Manual) 0 % (0.0-4.3); Macrocytosis Few; Platelet Estimate Consistent w Auto; Target Cells 1+
--- NOTE | 2017-08-26 09:24 | Progress Note ---
Assessment and Plan - Patient Problems (1) ESRD (end stage renal disease) on dialysis Current Visit: Yes Status: Acute Plan to address problem: Patient was switched from PD to hemodialysis. Continue HD, MWF schedule. Patient is on TPN. (2) Hyperkalemia Current Visit: Yes Status: Acute Plan to address problem: Hemodialysis today. (3) Anemia Current Visit: No Status: Chronic Qualifiers: Anemia type: due to chronic kidney disease Iron deficiency anemia type: I Vitamin B12 deficiency anemia type: V Folate deficiency anemia type: F Bone marrow failure anemia type: B Hemolytic anemia type: H Other causes of anemia: O Chronic kidney disease stage: on chronic dialysis Qualified Code(s ): N18.6 - End stage renal disease; D63.1 - Anemia in chronic kidney disease; Z99.2 - Dependence on renal dialysis Plan to address problem: Epogen. (4) Hypotension Current Visit: Yes Status: Chronic Qualifiers: Hypotension type: H Trimester: T Plan to address problem: Off pressors. (5) Leukocytosis Current Visit: Yes Status: Acute Qualifiers: Leukocytosis type: unspecified Qualified Code(s): D72.829 - Elevated white blood cell count, unspecified (6) Acute respiratory failure with hypoxemia Current Visit: Yes Status: Acute Plan to address problem: S/p extubated. (7) Sepsis Current Visit: Yes Status: Acute Qualifiers: Sepsis type: S Subjective Date of service: 08/26/17 Principal diagnosis: /anemia, poor oral intake. Interval history: Patient was seen and examined at the bedside. Objective - Vital Signs Vital signs: Vital Signs - 12hr 08/26/17 08/26/17 08/26/17 01:27 03:46 04:25 Temperature 97.4 F L Pulse Rate 104 H 93 H 65 Respiratory 23 19 24 Rate Blood Pressure 116/69 [Left] O2 Sat by Pulse 100 100 100 Oximetry - General Appearance General appearance: well-developed, appears stated age, obese, other (no obvious distress, right groin hemodialysis catheter) EENT: ATNC, PERRL, hearing intact Neck: supple Respiratory: Present: Clear to Ascultation Cardiology: regular, S1S2, no murmurs Gastrointestinal: normoactive bowel sounds, obese, other (surgical kelli, PEG noted) Integumentary: no rash Neurologic: other (right LE weakness, barely able to speak) Musculoskeletal: other (1+ edema of both LEs noted) Psychiatric: cooperative - Lab 08/26/17 05:30 08/26/17 05:30 Most recent lab results Calcium 8.3 mg/dL (8.4-10.2) L 08/26/17 05:30 Phosphorus 6.80 mg/dL (2.5-4.5) H D 08/26/17 05:30 Magnesium 2.60 mg/dL (1.7-2.3) H 08/26/17 05:30
--- NOTE | 2017-08-26 09:25 | Progress Note ---
Assessment and Plan - Patient Problems (1) ESRD (end stage renal disease) on dialysis Current Visit: Yes Status: Acute (2) Hyperkalemia Current Visit: Yes Status: Acute (3) Anemia Current Visit: No Status: Chronic Qualifiers: Anemia type: due to chronic kidney disease Iron deficiency anemia type: I Vitamin B12 deficiency anemia type: V Folate deficiency anemia type: F Bone marrow failure anemia type: B Hemolytic anemia type: H Other causes of anemia: O Chronic kidney disease stage: on chronic dialysis Qualified Code(s ): N18.6 - End stage renal disease; D63.1 - Anemia in chronic kidney disease; Z99.2 - Dependence on renal dialysis (4) Hypotension Current Visit: Yes Status: Chronic Qualifiers: Hypotension type: H Trimester: T (5) Leukocytosis Current Visit: Yes Status: Acute Qualifiers: Leukocytosis type: unspecified Qualified Code(s): D72.829 - Elevated white blood cell count, unspecified (6) Acute respiratory failure with hypoxemia Current Visit: Yes Status: Acute (7) Sepsis Current Visit: Yes Status: Acute Qualifiers: Sepsis type: S Subjective Date of service: 08/26/17 Principal diagnosis: /anemia, poor oral intake. Objective - Vital Signs Vital signs: Vital Signs - 12hr 08/26/17 08/26/17 08/26/17 01:27 03:46 04:25 Temperature 97.4 F L Pulse Rate 104 H 93 H 65 Respiratory 23 19 24 Rate Blood Pressure 116/69 [Left] O2 Sat by Pulse 100 100 100 Oximetry - Lab 08/26/17 05:30 08/26/17 05:30 Most recent lab results Calcium 8.3 mg/dL (8.4-10.2) L 08/26/17 05:30 Phosphorus 6.80 mg/dL (2.5-4.5) H D 08/26/17 05:30 Magnesium 2.60 mg/dL (1.7-2.3) H 08/26/17 05:30
--- NOTE | 2017-08-26 10:13 | Progress Note ---
Assessment and Plan Assessment: 1) Sepsis with septic shock: resolved, leukocytosis trending slowly down; source bowel obstruction / suspect ?gastric perforation. -CRP=28-->32-->34 -->30 -procalcitonin=1.3 2) Bowel obstruction / suspect ?gastric perforation ? peritonitis -S/P Exlap, G-tube placement, EGD, abdominal washout and removal of PD -OR findings - bowel obstruction due to entanglement of PD cath, abscess cavity in LUQ and ? suspect perforation of unclear location -Repeat CT - improved ascitis 3) CA-UTI: chronic ivan exchanged every 4 weeks and ureteral stents in place which are exchanged every 6 months ? 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 6) Recent pancreatitis 7) Penicillin allergy-has taken keflex w/o problems Plan: -continue meropenem day 14 of 14, fluconazole day 10 14 -remove femoral cath and a perm HD cath to be placed -please discuss with urology need for "chronic ivan in place", can ivan be removed since she makes little urine? Thank you Dr Davis for your consultation, will follow up with you. Ramya Lang MD Infectious Diseases Specialist [facility] M [phone] O [phone] Subjective Date of service: 08/26/17 Principal diagnosis: /anemia, poor oral intake. Interval history: More alert on CPAP. No fever. Microbiology: Blood cultures: 08/08 neg 08/12 neg 08/16 neg 08/20 neg Urine cultures: 08/08 10-100K skin grace Respiratory cultures: Wound cultures: Stool cultures: Other: 08/08 peritoneal fluid + BAG CHECKER/Diphteroids Current Antimicrobials: 08/13 meropenem 08/16 fluconazole Previous Antimicrobials: 08/10 levaquin 08/16 vancomycin Objective - Exam Narrative Exam: General appearance: alert on CPAP Eyes: anicteric sclerae, moist conjunctivae; no lid-lag; PERRLA HENT: Atraumatic; limited OP Neck: Trachea midline; supple, no thyromegaly or lymphadenopathy Lungs: coarse BS moreno CV: RRR, no murmurs Abdomen: soft, midline surgical wound with kelli a drain covered with surg dressings Gtube Extremities: + peripheral edema + leg ulcer Skin: Normal temperature, turgor and texture; no rash, ulcers or subcutaneous nodules Psych: stable. Neuro: alert talking moving all extremities Lines: Right vascath femoral / Right IJ Nair 08/16 - Constitutional Vitals: Vital Signs Temp Pulse Resp BP Pulse Ox 98.4 F 99 H 24 121/64 100 08/26/17 08:54 08/26/17 08:54 08/26/17 08:54 08/26/17 08:54 08/26/17 09:47 Temperature -Last 24 Hours Temperature 98.4 F Temperature 97.4 F Temperature 98.3 F Temperature 98.3 F - Labs CBC & Chem 7: 08/26/17 05:30 08/26/17 05:30 Labs: Abnormal lab results 08/25/17 08/26/17 08/26/17 Range/Units 11:53 05:30 05:30 WBC 33.5 H (4.5-11.0) K/mm3 RBC 2.47 L (3.65-5.03) M/mm3 Hgb 7.3 L (10.1-14.3) gm/dl Hct 23.0 L (30.3-42.9) % RDW 21.3 H (13.2-15.2) % Seg Neuts % (Manual) 92.0 H (40.0-70.0) % Lymphocytes % (Manual) 1.0 L (13.4-35.0) % Seg Neutrophils # Man 30.8 H (1.8-7.7) K/mm3 Lymphocytes # (Manual) 0.3 L (1.2-5.4) K/mm3 Potassium 5.2 H (3.6-5.0) mmol/L BUN 80 H (7-17) mg/dL Creatinine 3.4 H (0.7-1.2) mg/dL Glucose 193 H (65-100) mg/dL POC Glucose 191 H (70-105) Calcium 8.3 L (8.4-10.2) mg/dL Phosphorus 6.80 H D (2.5-4.5) mg/dL Magnesium 2.60 H (1.7-2.3) mg/dL AST 135 H (5-40) units/L Alkaline Phosphatase 211 H (35-129) units/L Total Protein 4.8 L (6.3-8.2) g/dL Albumin 2.0 L (3.9-5) g/dL 08/26/17 Range/Units 06:44 WBC (4.5-11.0) K/mm3 RBC (3.65-5.03) M/mm3 Hgb (10.1-14.3) gm/dl Hct (30.3-42.9) % RDW (13.2-15.2) % Seg Neuts % (Manual) (40.0-70.0) % Lymphocytes % (Manual) (13.4-35.0) % Seg Neutrophils # Man (1.8-7.7) K/mm3 Lymphocytes # (Manual) (1.2-5.4) K/mm3 Potassium (3.6-5.0) mmol/L BUN (7-17) mg/dL Creatinine (0.7-1.2) mg/dL Glucose (65-100) mg/dL POC Glucose 232 H (70-105) Calcium (8.4-10.2) mg/dL Phosphorus (2.5-4.5) mg/dL Magnesium (1.7-2.3) mg/dL AST (5-40) units/L Alkaline Phosphatase (35-129) units/L Total Protein (6.3-8.2) g/dL Albumin (3.9-5) g/dL
--- NOTE | 2017-08-26 11:08 | Progress Note ---
Assessment and Plan - Patient Problems (1) SBO (small bowel obstruction) Current Visit: Yes Status: Acute Plan to address problem: 62 y.o. F s/p ex-lap, lysis of adhesions, G tube placement, MERVIN drain placement: POD 8 gastric perforation: poor overall nutritional status making the defect difficult to re-seal despite intra-luminal decompression and external drainage. Mervin now brown/serous. Once MERVIN drainage is much less and appears serous, will retest for leak via methylene blue test (will likely be several days) Record MERVIN output and G tube output in order to assess if she is adequately being decompressed. discussed with nurse importance of recording outputs. Monitor output and color. Likely prolonged healing time of small gastric perforation. Keep NPO. No manipulation of NG or G or MERVIN. Keep NG to low intermit. wall sunction. No manipulation. No flushes. No medications Midline wound: culture sent. Non foul smelling discharge. Likely same drainage as from MERVIN. Keep milking MERVIN in order to keep open . Prolonged healing anticipated due to poor nutrition and steroids. Will not start vit A supplementation due to possible vit A toxicity from supplementation due to renal failure. -continue PPI ID: Covering Gut grace 2/ perforation: merrom -completed. diflucan - per ID Leukocytosis improving sepsis: likely due intra-abdominal process. Weaned off levo. ID following. f/u rpt cultures continue abx, and abdominal drainage. TPN for nutrition Resp: s/p extubation. Vent with humidfied O2. Rec. Chest PT. renal failure: HD per renal. will defer to renal for dialysis and fluid/ electrolyte management. HD Saturday. HD cath. Right fem. Sacral wound and RLE wound: wound care following. GI proph: PPI DVT proph: hep sub q restarted. no contraindication for sub q heparin from surgical standpoint Subjective Narrative: Pt transf. from ICU to 4th floor. Pt awake and alert. Denies pain at this time. Denies vomiting. afebrile Daughter at bedside outputs: NG 150cc light bilious - G tube 95 yesterday. No recording for overnight. light bilious MERVIN 10cc brown. not fully recorded. Ivan: 0 Objective Vital Signs - 12hr 08/26/17 08/26/17 08/26/17 01:27 03:46 04:25 Temperature 97.4 F L Pulse Rate 104 H 93 H 65 Respiratory 23 19 24 Rate Blood Pressure 116/69 [Left] O2 Sat by Pulse 100 100 100 Oximetry 08/26/17 08/26/17 08:54 09:47 Temperature 98.4 F Pulse Rate 99 H Respiratory 24 Rate Blood Pressure 121/64 [Left] O2 Sat by Pulse 100 Oximetry - General physical appearance well developed, no distress, no pain, obese - Respiratory normal expansion, clear to auscultation - Abdomen soft, other (obese, soft tender epigastric area. midline incision: packing removed with additional kelli removed. discharge cultured. same color as MERVIN drainage. fat necrosis. irrigated and repacked. PD cath round no discharge. repacked lightly with 4x4. no rebound no guarding. ) - Genitourinary other (ivan ) - Neurologic normal sensation - Musculoskeletal other (+3 upper and lower MS extremiteis BL. +2 edema upper and lower extremities ) - Psychiatric oriented to person - Labs 08/26/17 05:30 08/26/17 05:30 Diabetes panel 08/26/17 Range/Units 05:30 Sodium 142 (137-145) mmol/L Potassium 5.2 H (3.6-5.0) mmol/L Chloride 101.8 (98-107) mmol/L Carbon Dioxide 22 (22-30) mmol/L BUN 80 H (7-17) mg/dL Creatinine 3.4 H (0.7-1.2) mg/dL Glucose 193 H (65-100) mg/dL Calcium 8.3 L (8.4-10.2) mg/dL AST 135 H (5-40) units/L ALT 49 (7-56) units/L Alkaline Phosphatase 211 H (35-129) units/L Total Protein 4.8 L (6.3-8.2) g/dL Albumin 2.0 L (3.9-5) g/dL Calcium panel 08/26/17 Range/Units 05:30 Calcium 8.3 L (8.4-10.2) mg/dL Phosphorus 6.80 H D (2.5-4.5) mg/dL Albumin 2.0 L (3.9-5) g/dL Pituitary panel 08/26/17 Range/Units 05:30 Sodium 142 (137-145) mmol/L Potassium 5.2 H (3.6-5.0) mmol/L Chloride 101.8 (98-107) mmol/L Carbon Dioxide 22 (22-30) mmol/L BUN 80 H (7-17) mg/dL Creatinine 3.4 H (0.7-1.2) mg/dL Glucose 193 H (65-100) mg/dL Calcium 8.3 L (8.4-10.2) mg/dL Adrenal panel 08/26/17 Range/Units 05:30 Sodium 142 (137-145) mmol/L Potassium 5.2 H (3.6-5.0) mmol/L Chloride 101.8 (98-107) mmol/L Carbon Dioxide 22 (22-30) mmol/L BUN 80 H (7-17) mg/dL Creatinine 3.4 H (0.7-1.2) mg/dL Glucose 193 H (65-100) mg/dL Calcium 8.3 L (8.4-10.2) mg/dL Total Bilirubin 0.50 (0.1-1.2) mg/dL AST 135 H (5-40) units/L ALT 49 (7-56) units/L Alkaline Phosphatase 211 H (35-129) units/L Total Protein 4.8 L (6.3-8.2) g/dL Albumin 2.0 L (3.9-5) g/dL
[2017-08-26] MEDS: DILAUDID IV PRN (12:25)
[2017-08-26] MEDS: PROTONIX IV SCH ×2 (12:29→22:41)
[2017-08-26] MEDS: DIFLUCAN 200 MG/100 ML BAG IV SCH (12:34)
--- NOTE | 2017-08-26 13:32 | Progress Note ---
Assessment and Plan Imp: 1. Acute bacterial peritonitis/abscess s/p PD cath removal and exlap 2. SBO 3. Acute respiratory failure, hypoxia 4. Morbid obesity, excess cals. 5. ESRD 6. Sepsis, better 7. Leukemoid reaction due to high-dose steroids Rec: 1. Taper steroids 2. Monitor volume status with TPN 3. BIPAP prn only (does not appear to need currently); can try on nasal cannula to keep sats 88% or above 4. DVT PPx 5. Further plans pending clinical course Plan of care reviewed w/ patient, she understands/agrees Subjective Date of service: 08/26/17 Principal diagnosis: /anemia, poor oral intake. Interval history: No events. Sleepy from pain meds, but arouses. No SOB or chest pain. Placed on BIPAP apparently b/c she was taking off her VM but no reports of hypoxia or increased WOB. Active Medications Al Hydrox/Mg Hydrox/Simethicone (Alum-Mag Hydrox-Simeth [phone]/5ml) 15 ml PO Q4H PRN PRN Reason: Indigestion Last Admin: 08/09/17 23:37 Dose: 15 ml Albuterol (Proventil) 2.5 mg IH Q4HRT PRN PRN Reason: Shortness Of Breath Last Admin: 08/24/17 21:49 Dose: 2.5 mg Heparin Sodium (Porcine) (Heparin) 5,000 unit IV ISIAH PRN PRN Reason: hemodialysis Last Admin: 08/23/17 13:20 Dose: 5,000 unit Heparin Sodium (Porcine) (Heparin) 5,000 unit SUB-Q Q8HR GLORIA Last Admin: 08/26/17 13:05 Dose: 5,000 unit Hydrocortisone Sodium Succinate (Solu-Cortef) 50 mg IV Q8HR GLORIA Hydromorphone HCl (Dilaudid) 1 mg IV Q4H PRN PRN Reason: Pain , Severe (7-10) Last Admin: 08/26/17 12:25 Dose: 1 mg Hydrophilic Ointment (Vaseline Lip Therapy) 1 applic TP DIRECT PRN PRN Reason: DRY LIPS Meropenem 1,000 mg/ Sodium (Chloride) 100 mls @ 100 mls/hr IV Q24H GLORIA Last Admin: 08/25/17 13:09 Dose: 28.12 mls/hr Fluconazole (Diflucan) 200 mg in 100 mls @ 100 mls/hr IV Q24HR GLORIA PRN Reason: Protocol Last Admin: 08/26/17 12:34 Dose: 100 mls/hr Sodium Chloride (Nacl 0.9%) 100 mls @ 999 mls/hr IV ISIAH PRN PRN Reason: Hypotension Sodium Chloride (Nacl 0.9%) 100 mls @ 999 mls/hr IV ISIAH PRN PRN Reason: Hypotension Last Admin: 08/23/17 10:55 Dose: 999 mls/hr Amino Acids/Electrolytes/Dextrose (Tpn Adult) 1,800 mls @ 75 mls/hr IV DAILY@ 1999 [facility] PRN Reason: Protocol Stop: 08/26/17 19:59 Last Admin: 08/25/17 21:34 Dose: 75 mls/hr Sodium Chloride (Nacl 0.9%) 100 mls @ 999 mls/hr IV ISIAH PRN PRN Reason: Hypotension Amino Acids/Electrolytes/Dextrose (Tpn Adult) 1,800 mls @ 75 mls/hr IV DAILY@ 1999 [facility] PRN Reason: Protocol Stop: 08/27/17 19:59 Fat Emulsion Intravenous (Intralipid 20%) 250 mls @ 21 mls/hr IV DAILY@1999 [facility] Stop: 08/27/17 08:00 Insulin Human Regular (Novolin R) 0 units SUB-Q Q6HR [facility] PRN Reason: Protocol Last Admin: 08/26/17 06:43 Dose: 3 units Multi-Ingred Cream/Lotion/Oil/Oint (Artificial Tears Ophth Oint) 1 applic OU Q4H PRN PRN Reason: Dry Eye(s) Ondansetron HCl (Zofran) 4 mg IV Q6H PRN PRN Reason: Nausea And Vomiting Last Admin: 08/16/17 22:50 Dose: 4 mg Pantoprazole Sodium (Protonix) 40 mg IV BID [facility] Last Admin: 08/26/17 12:29 Dose: 40 mg Sodium Chloride (Nacl 0.9% 500 Ml) 1 ml IV DIRECT GLORIA Zolpidem Tartrate (Ambien) 5 mg PO QHS PRN PRN Reason: Sleep Last Admin: 08/09/17 23:37 Dose: 5 mg Objective Vital Signs - 12hr 08/26/17 08/26/17 08/26/17 03:46 04:25 08:54 Temperature 97.4 F L 98.4 F Pulse Rate 93 H 65 99 H Respiratory 19 24 24 Rate Blood Pressure 116/69 121/64 [Left] O2 Sat by Pulse 100 100 Oximetry 08/26/17 08/26/17 09:47 11:52 Temperature Pulse Rate 99 H Respiratory 21 Rate Blood Pressure [Left] O2 Sat by Pulse 100 100 Oximetry Constitutional: no acute distress, alert, other (somnolent/arousable) Eyes: non-icteric ENT: oropharynx moist, other (NG tube in place in right nare) Neck: supple, no lymphadenopathy Effort: normal Ascultation: Bilateral: diminished breath sounds Cardiovascular: regular rate and rhythm (no mrg) Gastrointestinal: absent bowel sounds, non-tender, other (abdominal incision with dressing noted, obese) Extremities: no cyanosis, no edema, pink and warm Neurologic: pupils equal and round, other (sleepy, arousable, answers questions appropriately) Psychiatric: mood appropriate, affect normal CBC and BMP: 08/26/17 05:30 08/26/17 05:30 ABG, PT/INR, D-dimer: ABG POC ABG pH 7.481 (7.35-7.45) H 08/21/17 03:14 POC ABG pCO2 29.6 (35-45) L 08/21/17 03:14 POC ABG pO2 104 (80-105) 08/21/17 03:14 POC ABG HCO3 22.1 08/21/17 03:14 POC ABG Total CO2 23 08/21/17 03:14 POC ABG O2 Sat 98 08/21/17 03:14 PT/INR, D-dimer PT 16.0 Sec. (12.2-14.9) H 08/17/17 11:20 INR 1.29 (0.87-1.13) H 08/17/17 11:20 Abnormal lab findings: Abnormal Labs 08/08/17 08/08/17 08/09/17 21:23 21:31 11:19 WBC 15.7 H RBC 2.93 L Hgb 8.7 L Hct 26.8 L MCV RDW 19.2 H Plt Count Lymph % (Auto) Orange % (Auto) Orange # Seg Neutrophils % Seg Neuts % (Manual) Lymphocytes % (Manual) Monocytes % (Manual) Nucleated RBC % Seg Neutrophils # Seg Neutrophils # Man Lymphocytes # (Manual) Monocytes # (Manual) Eosinophils # (Manual) Basophils # (Manual) PT INR POC ABG pH 7.490 H POC ABG pCO2 POC ABG pO2 122 H Sodium Potassium Chloride Carbon Dioxide BUN Creatinine Glucose POC Glucose Calcium Phosphorus Magnesium AST ALT Alkaline Phosphatase Troponin T 0.133 H* C-Reactive Protein Total Protein Albumin HDL Cholesterol 26 L Miscellaneous Test Crossmatch 08/09/17 08/10/17 08/10/17 13:25 04:45 04:45 WBC 15.5 H RBC 2.97 L Hgb 8.9 L Hct 27.0 L MCV RDW 19.2 H Plt Count Lymph % (Auto) Orange % (Auto) Orange # Seg Neutrophils % Seg Neuts % (Manual) 73.0 H Lymphocytes % (Manual) 7.0 L Monocytes % (Manual) 14.0 H Nucleated RBC % Seg Neutrophils # Seg Neutrophils # Man 11.3 H Lymphocytes # (Manual) 1.1 L Monocytes # (Manual) 2.2 H Eosinophils # (Manual) Basophils # (Manual) 0.2 H PT INR POC ABG pH POC ABG pCO2 POC ABG pO2 Sodium Potassium 3.3 L Chloride 97.3 L Carbon Dioxide 21 L BUN 23 H Creatinine 6.5 H Glucose POC Glucose Calcium 7.3 L Phosphorus Magnesium AST ALT Alkaline Phosphatase 138 H Troponin T 0.132 H* C-Reactive Protein Total Protein 4.8 L Albumin 1.4 L HDL Cholesterol Miscellaneous Test Crossmatch 08/11/17 08/11/17 08/12/17 04:00 04:00 05:50 WBC 19.3 H RBC 3.10 L Hgb 9.5 L Hct 28.2 L MCV RDW 19.2 H Plt Count 463 H Lymph % (Auto) 7.5 L Orange % (Auto) 14.6 H Orange # 2.8 H Seg Neutrophils % 77.0 H Seg Neuts % (Manual) Lymphocytes % (Manual) Monocytes % (Manual) Nucleated RBC % Seg Neutrophils # 14.8 H Seg Neutrophils # Man Lymphocytes # (Manual) Monocytes # (Manual) Eosinophils # (Manual) Basophils # (Manual) PT INR POC ABG pH POC ABG pCO2 POC ABG pO2 Sodium 136 L 136 L Potassium 3.3 L Chloride 96.3 L 96.6 L Carbon Dioxide BUN 26 H 26 H Creatinine 6.4 H 6.2 H Glucose 135 H 133 H POC Glucose Calcium 8.2 L Phosphorus Magnesium 1.30 L AST ALT Alkaline Phosphatase 139 H Troponin T C-Reactive Protein Total Protein 5.5 L Albumin 1.7 L HDL Cholesterol Miscellaneous Test Crossmatch 08/12/17 08/12/17 08/12/17 05:50 05:50 05:50 WBC 20.1 H RBC 3.06 L Hgb 9.3 L Hct 27.9 L MCV RDW 18.4 H Plt Count 471 H Lymph % (Auto) Orange % (Auto) Orange # Seg Neutrophils % Seg Neuts % (Manual) 85.0 H Lymphocytes % (Manual) 8.0 L Monocytes % (Manual) Nucleated RBC % Seg Neutrophils # Seg Neutrophils # Man 17.1 H Lymphocytes # (Manual) Monocytes # (Manual) 1.0 H Eosinophils # (Manual) Basophils # (Manual) PT 15.2 H INR 1.14 H POC ABG pH POC ABG pCO2 POC ABG pO2 Sodium Potassium Chloride Carbon Dioxide BUN Creatinine Glucose POC Glucose Calcium Phosphorus Magnesium AST ALT Alkaline Phosphatase Troponin T C-Reactive Protein 28.90 H Total Protein Albumin HDL Cholesterol Miscellaneous Test Crossmatch 08/12/17 08/13/17 08/13/17 16:23 06:14 06:14 WBC 21.8 H RBC 3.11 L Hgb 9.4 L Hct 28.2 L MCV RDW 18.2 H Plt Count 492 H Lymph % (Auto) Orange % (Auto) Orange # Seg Neutrophils % Seg Neuts % (Manual) 73.0 H Lymphocytes % (Manual) 2.0 L Monocytes % (Manual) 15 H Nucleated RBC % Seg Neutrophils # Seg Neutrophils # Man 15.9 H Lymphocytes # (Manual) 0.4 L Monocytes # (Manual) 2.4 H Eosinophils # (Manual) Basophils # (Manual) PT INR POC ABG pH POC ABG pCO2 POC ABG pO2 Sodium Potassium Chloride 96.2 L Carbon Dioxide BUN 28 H Creatinine 5.6 H Glucose 114 H POC Glucose Calcium Phosphorus Magnesium AST ALT Alkaline Phosphatase Troponin T C-Reactive Protein 26.10 H Total Protein Albumin HDL Cholesterol Miscellaneous Test Crossmatch 08/13/17 08/14/17 08/14/17 16:39 04:00 04:00 WBC 22.1 H RBC 3.25 L Hgb 9.9 L Hct 29.5 L MCV RDW 17.9 H Plt Count 525 H Lymph % (Auto) Orange % (Auto) Orange # Seg Neutrophils % Seg Neuts % (Manual) 74.0 H Lymphocytes % (Manual) 8.0 L Monocytes % (Manual) 12.0 H Nucleated RBC % Seg Neutrophils # Seg Neutrophils # Man 16.4 H Lymphocytes # (Manual) Monocytes # (Manual) 2.7 H Eosinophils # (Manual) Basophils # (Manual) PT INR POC ABG pH POC ABG pCO2 POC ABG pO2 Sodium 134 L Potassium 3.3 L Chloride 93.3 L Carbon Dioxide BUN 27 H Creatinine 6.0 H Glucose 152 H POC Glucose 151 H Calcium Phosphorus Magnesium AST ALT Alkaline Phosphatase Troponin T C-Reactive Protein Total Protein Albumin HDL Cholesterol Miscellaneous Test Crossmatch 08/15/17 08/16/17 08/16/17 09:10 09:50 09:50 WBC 31.1 H RBC 3.21 L Hgb 9.6 L Hct 29.3 L MCV RDW 18.1 H Plt Count 642 H Lymph % (Auto) Orange % (Auto) Orange # Seg Neutrophils % Seg Neuts % (Manual) 74.0 H Lymphocytes % (Manual) 4.0 L Monocytes % (Manual) 9.0 H Nucleated RBC % Seg Neutrophils # Seg Neutrophils # Man 23.0 H Lymphocytes # (Manual) Monocytes # (Manual) 2.8 H Eosinophils # (Manual) Basophils # (Manual) PT INR POC ABG pH POC ABG pCO2 POC ABG pO2 Sodium 136 L 136 L Potassium 3.5 L Chloride 97.6 L 94.9 L Carbon Dioxide BUN 27 H 28 H Creatinine 5.6 H 5.5 H Glucose 117 H 103 H POC Glucose Calcium Phosphorus Magnesium AST ALT Alkaline Phosphatase 137 H Troponin T C-Reactive Protein Total Protein 5.4 L Albumin 1.5 L HDL Cholesterol Miscellaneous Test Crossmatch 08/16/17 08/17/17 08/17/17 09:50 05:00 06:26 WBC RBC Hgb Hct MCV RDW Plt Count Lymph % (Auto) Orange % (Auto) Orange # Seg Neutrophils % Seg Neuts % (Manual) Lymphocytes % (Manual) Monocytes % (Manual) Nucleated RBC % Seg Neutrophils # Seg Neutrophils # Man Lymphocytes # (Manual) Monocytes # (Manual) Eosinophils # (Manual) Basophils # (Manual) PT INR POC ABG pH POC ABG pCO2 POC ABG pO2 Sodium 134 L Potassium 3.0 L Chloride 97.8 L Carbon Dioxide BUN 30 H Creatinine 5.3 H Glucose 147 H POC Glucose 165 H Calcium 7.5 L Phosphorus Magnesium AST ALT Alkaline Phosphatase Troponin T C-Reactive Protein 32.30 H Total Protein Albumin HDL Cholesterol Miscellaneous Test Crossmatch 08/17/17 08/17/17 08/17/17 10:56 11:20 11:20 WBC 39.1 H RBC 3.10 L Hgb 9.2 L Hct 28.6 L MCV RDW 18.3 H Plt Count 580 H Lymph % (Auto) Orange % (Auto) Orange # Seg Neutrophils % Seg Neuts % (Manual) 89.5 H Lymphocytes % (Manual) 3.5 L Monocytes % (Manual) Nucleated RBC % Seg Neutrophils # Seg Neutrophils # Man 35.0 H Lymphocytes # (Manual) Monocytes # (Manual) 2.5 H Eosinophils # (Manual) Basophils # (Manual) 0.2 H PT INR POC ABG pH 7.464 H POC ABG pCO2 34.1 L POC ABG pO2 75 L Sodium Potassium Chloride Carbon Dioxide BUN Creatinine Glucose POC Glucose Calcium Phosphorus Magnesium AST ALT Alkaline Phosphatase Troponin T C-Reactive Protein Total Protein Albumin HDL Cholesterol Miscellaneous Test Flexitest 1 H Crossmatch 08/17/17 08/17/17 08/17/17 11:20 16:57 20:20 WBC 34.4 H RBC 2.81 L Hgb 8.4 L Hct 26.0 L MCV RDW 17.8 H Plt Count 455 H Lymph % (Auto) Orange % (Auto) Orange # Seg Neutrophils % Seg Neuts % (Manual) Lymphocytes % (Manual) 3.5 L Monocytes % (Manual) Nucleated RBC % 5.0 H Seg Neutrophils # Seg Neutrophils # Man 16.5 H Lymphocytes # (Manual) Monocytes # (Manual) 1.0 H Eosinophils # (Manual) Basophils # (Manual) PT 16.0 H INR 1.29 H POC ABG pH POC ABG pCO2 POC ABG pO2 Sodium 135 L Potassium 2.9 L* Chloride Carbon Dioxide 20 L BUN 32 H Creatinine 5.4 H Glucose 129 H POC Glucose Calcium 7.5 L Phosphorus Magnesium 1.50 L AST 85 H ALT Alkaline Phosphatase Troponin T C-Reactive Protein Total Protein 4.0 L D Albumin 1.6 L HDL Cholesterol Miscellaneous Test Crossmatch 08/17/17 08/17/17 08/18/17 20:54 23:47 04:26 WBC RBC Hgb Hct MCV RDW Plt Count Lymph % (Auto) Orange % (Auto) Orange # Seg Neutrophils % Seg Neuts % (Manual) Lymphocytes % (Manual) Monocytes % (Manual) Nucleated RBC % Seg Neutrophils # Seg Neutrophils # Man Lymphocytes # (Manual) Monocytes # (Manual) Eosinophils # (Manual) Basophils # (Manual) PT INR POC ABG pH 7.557 H POC ABG pCO2 23.1 L 29.0 L POC ABG pO2 187 H 148 H Sodium Potassium Chloride Carbon Dioxide BUN Creatinine Glucose POC Glucose 188 H Calcium Phosphorus Magnesium AST ALT Alkaline Phosphatase Troponin T C-Reactive Protein Total Protein Albumin HDL Cholesterol Miscellaneous Test Crossmatch 08/18/17 08/18/17 08/18/17 05:51 11:44 17:07 WBC RBC Hgb Hct MCV RDW Plt Count Lymph % (Auto) Orange % (Auto) Orange # Seg Neutrophils % Seg Neuts % (Manual) Lymphocytes % (Manual) Monocytes % (Manual) Nucleated RBC % Seg Neutrophils # Seg Neutrophils # Man Lymphocytes # (Manual) Monocytes # (Manual) Eosinophils # (Manual) Basophils # (Manual) PT INR POC ABG pH POC ABG pCO2 POC ABG pO2 Sodium Potassium Chloride Carbon Dioxide BUN Creatinine Glucose POC Glucose 202 H 195 H 182 H Calcium Phosphorus Magnesium AST ALT Alkaline Phosphatase Troponin T C-Reactive Protein Total Protein Albumin HDL Cholesterol Miscellaneous Test Crossmatch 08/18/17 08/18/17 08/18/17 23:45 Unknown Unknown WBC 39.0 H RBC 2.84 L Hgb 8.4 L Hct 26.5 L MCV RDW 18.0 H Plt Count 476 H Lymph % (Auto) Orange % (Auto) Orange # Seg Neutrophils % Seg Neuts % (Manual) Lymphocytes % (Manual) 7.0 L Monocytes % (Manual) 10.0 H Nucleated RBC % 3.0 H Seg Neutrophils # Seg Neutrophils # Man 15.6 H Lymphocytes # (Manual) Monocytes # (Manual) 3.9 H Eosinophils # (Manual) Basophils # (Manual) PT INR POC ABG pH POC ABG pCO2 POC ABG pO2 Sodium Potassium Chloride Carbon Dioxide 19 L BUN 34 H Creatinine 5.6 H Glucose 201 H POC Glucose 163 H Calcium 7.8 L Phosphorus 1.90 L D Magnesium 1.60 L AST ALT Alkaline Phosphatase Troponin T C-Reactive Protein Total Protein Albumin HDL Cholesterol Miscellaneous Test Crossmatch 08/19/17 08/19/17 08/19/17 04:18 05:00 05:00 WBC 40.0 H RBC 2.46 L Hgb 7.3 L Hct 22.6 L MCV RDW 18.1 H Plt Count Lymph % (Auto) Orange % (Auto) Orange # Seg Neutrophils % Seg Neuts % (Manual) Lymphocytes % (Manual) 8.0 L Monocytes % (Manual) Nucleated RBC % 2.0 H Seg Neutrophils # Seg Neutrophils # Man 16.4 H Lymphocytes # (Manual) Monocytes # (Manual) 1.2 H Eosinophils # (Manual) 1.2 H Basophils # (Manual) PT INR POC ABG pH 7.463 H POC ABG pCO2 29.7 L POC ABG pO2 134 H Sodium Potassium 5.1 H D Chloride Carbon Dioxide 20 L BUN 40 H Creatinine 5.3 H Glucose 128 H POC Glucose Calcium 7.8 L Phosphorus 1.90 L Magnesium AST ALT Alkaline Phosphatase Troponin T C-Reactive Protein Total Protein Albumin HDL Cholesterol Miscellaneous Test Crossmatch 08/19/17 08/19/17 08/19/17 05:19 07:37 09:52 WBC 45.0 H* RBC 2.50 L Hgb 7.5 L Hct 24.5 L MCV 98 H RDW 18.4 H Plt Count Lymph % (Auto) Orange % (Auto) Orange # Seg Neutrophils % Seg Neuts % (Manual) 81.5 H Lymphocytes % (Manual) 4.0 L Monocytes % (Manual) Nucleated RBC % 1.0 H Seg Neutrophils # Seg Neutrophils # Man 36.7 H Lymphocytes # (Manual) Monocytes # (Manual) Eosinophils # (Manual) Basophils # (Manual) PT INR POC ABG pH POC ABG pCO2 POC ABG pO2 Sodium Potassium Chloride Carbon Dioxide BUN Creatinine Glucose POC Glucose 142 H Calcium Phosphorus Magnesium AST ALT Alkaline Phosphatase Troponin T C-Reactive Protein 34.20 H Total Protein Albumin HDL Cholesterol Miscellaneous Test Crossmatch 08/19/17 08/19/17 08/20/17 11:16 18:12 00:35 WBC RBC Hgb Hct MCV RDW Plt Count Lymph % (Auto) Orange % (Auto) Orange # Seg Neutrophils % Seg Neuts % (Manual) Lymphocytes % (Manual) Monocytes % (Manual) Nucleated RBC % Seg Neutrophils # Seg Neutrophils # Man Lymphocytes # (Manual) Monocytes # (Manual) Eosinophils # (Manual) Basophils # (Manual) PT INR POC ABG pH POC ABG pCO2 POC ABG pO2 Sodium Potassium Chloride Carbon Dioxide BUN Creatinine Glucose POC Glucose 143 H 137 H 164 H Calcium Phosphorus Magnesium AST ALT Alkaline Phosphatase Troponin T C-Reactive Protein Total Protein Albumin HDL Cholesterol Miscellaneous Test Crossmatch 08/20/17 08/20/17 08/20/17 03:20 03:20 04:00 WBC 48.0 H* RBC 2.55 L Hgb 7.6 L Hct 23.4 L MCV RDW 18.4 H Plt Count Lymph % (Auto) Orange % (Auto) Orange # Seg Neutrophils % Seg Neuts % (Manual) 90.0 H Lymphocytes % (Manual) 3.0 L Monocytes % (Manual) Nucleated RBC % Seg Neutrophils # Seg Neutrophils # Man 43.2 H Lymphocytes # (Manual) Monocytes # (Manual) 1.4 H Eosinophils # (Manual) 0.5 H Basophils # (Manual) PT INR POC ABG pH 7.499 H POC ABG pCO2 29.1 L POC ABG pO2 Sodium 135 L Potassium Chloride Carbon Dioxide BUN 28 H Creatinine 4.0 H Glucose 140 H POC Glucose Calcium 8.0 L Phosphorus 1.70 L Magnesium 1.60 L AST ALT Alkaline Phosphatase Troponin T C-Reactive Protein Total Protein Albumin HDL Cholesterol Miscellaneous Test Crossmatch 08/20/17 08/20/17 08/20/17 05:02 12:05 13:12 WBC RBC Hgb Hct MCV RDW Plt Count Lymph % (Auto) Orange % (Auto) Orange # Seg Neutrophils % Seg Neuts % (Manual) Lymphocytes % (Manual) Monocytes % (Manual) Nucleated RBC % Seg Neutrophils # Seg Neutrophils # Man Lymphocytes # (Manual) Monocytes # (Manual) Eosinophils # (Manual) Basophils # (Manual) PT INR POC ABG pH 7.537 H POC ABG pCO2 27.9 L POC ABG pO2 79 L Sodium Potassium Chloride Carbon Dioxide BUN Creatinine Glucose POC Glucose 158 H 203 H Calcium Phosphorus Magnesium AST ALT Alkaline Phosphatase Troponin T C-Reactive Protein Total Protein Albumin HDL Cholesterol Miscellaneous Test Crossmatch 08/20/17 08/21/17 08/21/17 17:13 00:47 03:14 WBC RBC Hgb Hct MCV RDW Plt Count Lymph % (Auto) Orange % (Auto) Orange # Seg Neutrophils % Seg Neuts % (Manual) Lymphocytes % (Manual) Monocytes % (Manual) Nucleated RBC % Seg Neutrophils # Seg Neutrophils # Man Lymphocytes # (Manual) Monocytes # (Manual) Eosinophils # (Manual) Basophils # (Manual) PT INR POC ABG pH 7.481 H POC ABG pCO2 29.6 L POC ABG pO2 Sodium Potassium Chloride Carbon Dioxide BUN Creatinine Glucose POC Glucose 188 H 109 H Calcium Phosphorus Magnesium AST ALT Alkaline Phosphatase Troponin T C-Reactive Protein Total Protein Albumin HDL Cholesterol Miscellaneous Test Crossmatch 08/21/17 08/21/17 08/21/17 05:05 06:50 06:50 WBC 44.7 H* RBC 2.41 L Hgb 7.1 L Hct 22.1 L MCV RDW 18.3 H Plt Count Lymph % (Auto) Orange % (Auto) Orange # Seg Neutrophils % Seg Neuts % (Manual) 89.0 H Lymphocytes % (Manual) 0 L Monocytes % (Manual) Nucleated RBC % 1.0 H Seg Neutrophils # Seg Neutrophils # Man 39.8 H Lymphocytes # (Manual) 0.0 L Monocytes # (Manual) 1.3 H Eosinophils # (Manual) Basophils # (Manual) PT INR POC ABG pH POC ABG pCO2 POC ABG pO2 Sodium 135 L Potassium Chloride Carbon Dioxide BUN 39 H Creatinine 4.4 H Glucose 147 H POC Glucose 166 H Calcium 8.1 L Phosphorus Magnesium AST ALT < 5 L Alkaline Phosphatase 164 H Troponin T C-Reactive Protein Total Protein 4.7 L Albumin 1.4 L HDL Cholesterol Miscellaneous Test Crossmatch 08/21/17 08/21/17 08/21/17 08:00 12:21 17:02 WBC RBC Hgb Hct MCV RDW Plt Count Lymph % (Auto) Orange % (Auto) Orange # Seg Neutrophils % Seg Neuts % (Manual) Lymphocytes % (Manual) Monocytes % (Manual) Nucleated RBC % Seg Neutrophils # Seg Neutrophils # Man Lymphocytes # (Manual) Monocytes # (Manual) Eosinophils # (Manual) Basophils # (Manual) PT INR POC ABG pH POC ABG pCO2 POC ABG pO2 Sodium Potassium Chloride Carbon Dioxide BUN Creatinine Glucose POC Glucose 147 H 135 H Calcium Phosphorus Magnesium AST ALT Alkaline Phosphatase Troponin T C-Reactive Protein Total Protein Albumin HDL Cholesterol Miscellaneous Test Crossmatch See Detail 08/21/17 08/22/17 08/22/17 23:38 03:40 03:40 WBC 42.5 H* RBC 2.88 L Hgb 8.5 L Hct 26.3 L MCV RDW 17.9 H Plt Count Lymph % (Auto) Orange % (Auto) Orange # Seg Neutrophils % Seg Neuts % (Manual) Lymphocytes % (Manual) 5.0 L Monocytes % (Manual) Nucleated RBC % Seg Neutrophils # Seg Neutrophils # Man 19.6 H Lymphocytes # (Manual) Monocytes # (Manual) 2.6 H Eosinophils # (Manual) Basophils # (Manual) PT INR POC ABG pH POC ABG pCO2 POC ABG pO2 Sodium Potassium 3.3 L D Chloride Carbon Dioxide BUN 27 H Creatinine 2.9 H Glucose 144 H POC Glucose 251 H Calcium 8.0 L Phosphorus 2.40 L Magnesium AST ALT Alkaline Phosphatase Troponin T C-Reactive Protein Total Protein Albumin HDL Cholesterol Miscellaneous Test Crossmatch 08/22/17 08/22/17 08/22/17 06:37 11:25 16:25 WBC RBC Hgb Hct MCV RDW Plt Count Lymph % (Auto) Orange % (Auto) Orange # Seg Neutrophils % Seg Neuts % (Manual) Lymphocytes % (Manual) Monocytes % (Manual) Nucleated RBC % Seg Neutrophils # Seg Neutrophils # Man Lymphocytes # (Manual) Monocytes # (Manual) Eosinophils # (Manual) Basophils # (Manual) PT INR POC ABG pH POC ABG pCO2 POC ABG pO2 Sodium Potassium Chloride Carbon Dioxide BUN Creatinine Glucose POC Glucose 152 H 175 H Calcium Phosphorus Magnesium AST ALT Alkaline Phosphatase Troponin T C-Reactive Protein 30.70 H Total Protein Albumin HDL Cholesterol Miscellaneous Test Crossmatch 08/22/17 08/22/17 08/23/17 17:56 23:03 05:36 WBC RBC Hgb Hct MCV RDW Plt Count Lymph % (Auto) Orange % (Auto) Orange # Seg Neutrophils % Seg Neuts % (Manual) Lymphocytes % (Manual) Monocytes % (Manual) Nucleated RBC % Seg Neutrophils # Seg Neutrophils # Man Lymphocytes # (Manual) Monocytes # (Manual) Eosinophils # (Manual) Basophils # (Manual) PT INR POC ABG pH POC ABG pCO2 POC ABG pO2 Sodium Potassium Chloride Carbon Dioxide BUN Creatinine Glucose POC Glucose 232 H 192 H 206 H Calcium Phosphorus Magnesium AST ALT Alkaline Phosphatase Troponin T C-Reactive Protein Total Protein Albumin HDL Cholesterol Miscellaneous Test Crossmatch 09/08/23/17 08/23/17 08:50 12:14 17:21 WBC RBC Hgb Hct MCV RDW Plt Count Lymph % (Auto) Orange % (Auto) Orange # Seg Neutrophils % Seg Neuts % (Manual) Lymphocytes % (Manual) Monocytes % (Manual) Nucleated RBC % Seg Neutrophils # Seg Neutrophils # Man Lymphocytes # (Manual) Monocytes # (Manual) Eosinophils # (Manual) Basophils # (Manual) PT INR POC ABG pH POC ABG pCO2 POC ABG pO2 Sodium Potassium Chloride 107.1 H Carbon Dioxide BUN 49 H Creatinine 3.3 H Glucose 172 H POC Glucose 238 H 226 H Calcium Phosphorus Magnesium 2.40 H AST ALT Alkaline Phosphatase Troponin T C-Reactive Protein Total Protein Albumin HDL Cholesterol Miscellaneous Test Crossmatch 08/23/17 08/24/17 08/24/17 23:13 04:00 05:06 WBC 34.2 H RBC 2.86 L Hgb 8.4 L Hct 25.9 L MCV RDW 17.9 H Plt Count Lymph % (Auto) Orange % (Auto) Orange # Seg Neutrophils % Seg Neuts % (Manual) 85.0 H Lymphocytes % (Manual) 0.5 L Monocytes % (Manual) Nucleated RBC % 1.0 H Seg Neutrophils # Seg Neutrophils # Man 29.1 H Lymphocytes # (Manual) 0.2 L Monocytes # (Manual) 2.4 H Eosinophils # (Manual) Basophils # (Manual) PT INR POC ABG pH POC ABG pCO2 POC ABG pO2 Sodium Potassium Chloride Carbon Dioxide BUN Creatinine Glucose POC Glucose 183 H 201 H Calcium Phosphorus Magnesium AST ALT Alkaline Phosphatase Troponin T C-Reactive Protein Total Protein Albumin HDL Cholesterol Miscellaneous Test Crossmatch 08/24/17 08/24/17 08/24/17 09:30 12:04 18:04 WBC RBC Hgb Hct MCV RDW Plt Count Lymph % (Auto) Orange % (Auto) Orange # Seg Neutrophils % Seg Neuts % (Manual) Lymphocytes % (Manual) Monocytes % (Manual) Nucleated RBC % Seg Neutrophils # Seg Neutrophils # Man Lymphocytes # (Manual) Monocytes # (Manual) Eosinophils # (Manual) Basophils # (Manual) PT INR POC ABG pH POC ABG pCO2 POC ABG pO2 Sodium Potassium Chloride Carbon Dioxide BUN 46 H Creatinine 2.5 H Glucose 176 H POC Glucose 181 H 189 H Calcium Phosphorus Magnesium AST ALT Alkaline Phosphatase Troponin T C-Reactive Protein Total Protein Albumin HDL Cholesterol Miscellaneous Test Crossmatch 08/24/17 08/25/17 08/25/17 23:05 05:05 07:02 WBC RBC Hgb Hct MCV RDW Plt Count Lymph % (Auto) Orange % (Auto) Orange # Seg Neutrophils % Seg Neuts % (Manual) Lymphocytes % (Manual) Monocytes % (Manual) Nucleated RBC % Seg Neutrophils # Seg Neutrophils # Man Lymphocytes # (Manual) Monocytes # (Manual) Eosinophils # (Manual) Basophils # (Manual) PT INR POC ABG pH POC ABG pCO2 POC ABG pO2 Sodium Potassium Chloride Carbon Dioxide BUN 32 H Creatinine 5.0 H D Glucose 117 H POC Glucose 175 H 190 H Calcium 8.0 L Phosphorus Magnesium AST ALT Alkaline Phosphatase Troponin T C-Reactive Protein Total Protein Albumin HDL Cholesterol Miscellaneous Test Crossmatch 08/25/17 08/26/17 08/26/17 11:53 05:30 05:30 WBC 33.5 H RBC 2.47 L Hgb 7.3 L Hct 23.0 L MCV RDW 21.3 H Plt Count Lymph % (Auto) Orange % (Auto) Orange # Seg Neutrophils % Seg Neuts % (Manual) 92.0 H Lymphocytes % (Manual) 1.0 L Monocytes % (Manual) Nucleated RBC % Seg Neutrophils # Seg Neutrophils # Man 30.8 H Lymphocytes # (Manual) 0.3 L Monocytes # (Manual) Eosinophils # (Manual) Basophils # (Manual) PT INR POC ABG pH POC ABG pCO2 POC ABG pO2 Sodium Potassium 5.2 H Chloride Carbon Dioxide BUN 80 H Creatinine 3.4 H Glucose 193 H POC Glucose 191 H Calcium 8.3 L Phosphorus 6.80 H D Magnesium 2.60 H AST 135 H ALT Alkaline Phosphatase 211 H Troponin T C-Reactive Protein Total Protein 4.8 L Albumin 2.0 L HDL Cholesterol Miscellaneous Test Crossmatch 08/26/17 06:44 WBC RBC Hgb Hct MCV RDW Plt Count Lymph % (Auto) Orange % (Auto) Orange # Seg Neutrophils % Seg Neuts % (Manual) Lymphocytes % (Manual) Monocytes % (Manual) Nucleated RBC % Seg Neutrophils # Seg Neutrophils # Man Lymphocytes # (Manual) Monocytes # (Manual) Eosinophils # (Manual) Basophils # (Manual) PT INR POC ABG pH POC ABG pCO2 POC ABG pO2 Sodium Potassium Chloride Carbon Dioxide BUN Creatinine Glucose POC Glucose 232 H Calcium Phosphorus Magnesium AST ALT Alkaline Phosphatase Troponin T C-Reactive Protein Total Protein Albumin HDL Cholesterol Miscellaneous Test Crossmatch Chest x-ray: report reviewed, image reviewed
[2017-08-26] MEDS: HEPARIN IV PRN (18:57)
--- NOTE | 2017-08-26 19:54 | Progress Note ---
Assessment and Plan Assessment and plan: --Septic shock. Resolved --Sepsis secondary to peritonitis /catheter related complex UTI present on admission .continue meropenem and Diflucan per ID --Acute hypoxic respiratory failure. s/p extubation. On NC oxygen/Ventimask, titrate O2 sats to more than 90% --End-stage renal disease , PD catheter removed, Vas-Cath placement, hemodialysis per schedule --Anemia secondary to end-stage renal disease; received 1 unit of PRBC , hemoglobin stable --Hypophosphatemia/hypomagnesemia ;corrected --Urinary retention/ ? Infected stents. Urology evaluated the patient --Bowel obstruction / status post exploratory lap with removal of PD catheter as a cause of obstruction. --Peritonitis /small bowel obstruction , s/p G-tube placement, abdominal washout , removal of PD catheter. surgery following. --Ulcerative esophagitis/small gastric ulcer on EGD. Continue current medications --Severe Protein calorie malnutrition., Continue TPN and supportive care --Sacral and lower extremity wound; continue wound care --Leukocytosis. Tending down, Secondary to peritonitis, complex complicated UTI, ID and hematology following --DVT prophylaxis; SCDs, add heparin renal dose --Physical therapy occupational therapy evaluation and treat Plan of care discussed with the patient and her nurse Disposition;per surgery and nephrology History Interval history: Patient seen and examined medical records reviewed Patient feels better, no new complaints Alert awake oriented 3 not in acute distress Vital signs reviewed Hospitalist Physical - Constitutional Vitals: Temp Pulse Resp BP Pulse Ox 98.4 F 84 22 120/48 100 08/26/17 19:05 08/26/17 19:05 08/26/17 19:05 08/26/17 19:05 08/26/17 14:14 General appearance: Present: no acute distress, well-nourished, obese - EENT Eyes: Present: PERRL, EOM intact - Neck Neck: Present: supple, normal ROM - Respiratory Respiratory effort: normal Respiratory: bilateral: diminished, rhonchi, negative: rales, wheezing - Cardiovascular Rhythm: regular Heart Sounds: Present: S1 & S2 - Extremities Extremities: no ischemia Extremity abnormal: edema - Abdominal General gastrointestinal: soft, tender (no guarding no rigidity), absent bowel sounds, other (surgical dressing and drain present) - Integumentary Integumentary: Present: clear, warm, erythema (sacral and lower extremity wound) - Psychiatric Psychiatric: appropriate mood/affect, cooperative - Neurologic Neurologic: CNII-XII intact, moves all extremities Results - Labs CBC & Chem 7: 08/26/17 05:30 08/26/17 05:30 Labs: Laboratory Last Values WBC 33.5 K/mm3 (4.5-11.0) H 08/26/17 05:30 RBC 2.47 M/mm3 (3.65-5.03) L 08/26/17 05:30 Hgb 7.3 gm/dl (10.1-14.3) L 08/26/17 05:30 Hct 23.0 % (30.3-42.9) L 08/26/17 05:30 MCV 93 fl (79-97) 08/26/17 05:30 MCH 30 pg (28-32) 08/26/17 05:30 MCHC 32 % (30-34) 08/26/17 05:30 RDW 21.3 % (13.2-15.2) H 08/26/17 05:30 Plt Count 340 K/mm3 (140-440) 08/26/17 05:30 Lymph % (Auto) Investment Broker 08/19/17 07:37 [place] % (Auto) Investment Broker 08/19/17 07:37 Eos % (Auto) Investment Broker 08/19/17 07:37 Baso % (Auto) Investment Broker 08/19/17 07:37 Lymph # Investment Broker 08/19/17 07:37 [place] # Investment Broker 08/19/17 07:37 Eos # Investment Broker 08/19/17 07:37 Baso # Investment Broker 08/19/17 07:37 Add Manual Diff Complete 08/26/17 05:30 Total Counted 100 08/26/17 05:30 Seg Neutrophils % Investment Broker 08/26/17 05:30 Seg Neuts % (Manual) 92.0 % (40.0-70.0) H 08/26/17 05:30 Band Neutrophils % 5.0 % 08/26/17 05:30 Lymphocytes % (Manual) 1.0 % (13.4-35.0) L 08/26/17 05:30 Reactive Lymphs % (Man) 0 % 08/26/17 05:30 Monocytes % (Manual) 2.0 % (0.0-7.3) 08/26/17 05:30 Eosinophils % (Manual) 0 % (0.0-4.3) 08/26/17 05:30 Basophils % (Manual) 0 % (0.0-1.8) 08/26/17 05:30 Metamyelocytes % 0 % 08/26/17 05:30 Myelocytes % 0 % 08/26/17 05:30 Promyelocytes % 0 % 08/26/17 05:30 Blast Cells % 0 % 08/26/17 05:30 Nucleated RBC % Not Reportable 08/26/17 05:30 Seg Neutrophils # Investment Broker 08/19/17 07:37 Seg Neutrophils # Man 30.8 K/mm3 (1.8-7.7) H 08/26/17 05:30 Band Neutrophils # 1.7 K/mm3 08/26/17 05:30 Lymphocytes # (Manual) 0.3 K/mm3 (1.2-5.4) L 08/26/17 05:30 Abs React Lymphs (Man) 0.0 K/mm3 08/26/17 05:30 Monocytes # (Manual) 0.7 K/mm3 (0.0-0.8) 08/26/17 05:30 Eosinophils # (Manual) 0.0 K/mm3 (0.0-0.4) 08/26/17 05:30 Basophils # (Manual) 0.0 K/mm3 (0.0-0.1) 08/26/17 05:30 Metamyelocytes # 0.0 K/mm3 08/26/17 05:30 Myelocytes # 0.0 K/mm3 08/26/17 05:30 Promyelocytes # 0.0 K/mm3 08/26/17 05:30 Blast Cells # 0.0 K/mm3 08/26/17 05:30 WBC Morphology Not Reportable 08/26/17 05:30 Hypersegmented Neuts Not Reportable 08/26/17 05:30 Hyposegmented Neuts Not Reportable 08/26/17 05:30 Hypogranular Neuts Not Reportable 08/26/17 05:30 Smudge Cells Not Reportable 08/26/17 05:30 Toxic Granulation Not Reportable 08/26/17 05:30 Toxic Vacuolation Not Reportable 08/26/17 05:30 Dohle Bodies Not Reportable 08/26/17 05:30 Pelger-Huet Anomaly Not Reportable 08/26/17 05:30 Ariel Rods Not Reportable 08/26/17 05:30 Platelet Estimate Consistent w auto 08/26/17 05:30 Clumped Platelets Not Reportable 08/26/17 05:30 Plt Clumps, EDTA Not Reportable 08/26/17 05:30 Large Platelets Not Reportable 08/26/17 05:30 Giant Platelets Not Reportable 08/26/17 05:30 Platelet Satelliting Not Reportable 08/26/17 05:30 Plt Morphology Comment Not Reportable 08/26/17 05:30 RBC Morphology Not Reportable 08/26/17 05:30 Dimorphic RBCs Not Reportable 08/26/17 05:30 Polychromasia Not Reportable 08/26/17 05:30 Hypochromasia Not Reportable 08/26/17 05:30 Poikilocytosis Not Reportable 08/26/17 05:30 Anisocytosis 1+ 08/26/17 05:30 Microcytosis Not Reportable 08/26/17 05:30 Macrocytosis Few 08/26/17 05:30 Spherocytes Not Reportable 08/26/17 05:30 Pappenheimer Bodies Not Reportable 08/26/17 05:30 Sickle Cells Not Reportable 08/26/17 05:30 Target Cells 1+ 08/26/17 05:30 Tear Drop Cells Not Reportable 08/26/17 05:30 Ovalocytes Not Reportable 08/26/17 05:30 Stomatocytes Few 08/20/17 03:20 Helmet Cells Not Reportable 08/26/17 05:30 [place] Bodies Not Reportable 08/26/17 05:30 Theodore Rings Not Reportable 08/26/17 05:30 Yusuf Cells Not Reportable 08/26/17 05:30 Bite Cells Not Reportable 08/26/17 05:30 Crenated Cell Not Reportable 08/26/17 05:30 Elliptocytes Not Reportable 08/26/17 05:30 Acanthocytes (Spur) Not Reportable 08/26/17 05:30 Rouleaux Not Reportable 08/26/17 05:30 Hemoglobin C Crystals Not Reportable 08/26/17 05:30 Schistocytes Not Reportable 08/26/17 05:30 Malaria parasites Not Reportable 08/26/17 05:30 Jovanni Bodies Not Reportable 08/26/17 05:30 Hem Pathologist Commnt No 08/26/17 05:30 PT 16.0 Sec. (12.2-14.9) H 08/17/17 11:20 INR 1.29 (0.87-1.13) H 08/17/17 11:20 APTT 35.5 Sec. (24.2-36.6) 08/12/17 05:50 POC ABG pH 7.481 (7.35-7.45) H 08/21/17 03:14 POC ABG pCO2 29.6 (35-45) L 08/21/17 03:14 POC ABG pO2 104 (80-105) 08/21/17 03:14 POC ABG HCO3 22.1 08/21/17 03:14 POC ABG Total CO2 23 08/21/17 03:14 POC ABG O2 Sat 98 08/21/17 03:14 POC ABG Base Excess -1 08/21/17 03:14 VBG pH 7.462 (7.320-7.420) H 08/08/17 14:52 FiO2 30 % 08/21/17 03:14 Sodium 142 mmol/L (137-145) 08/26/17 05:30 Potassium 5.2 mmol/L (3.6-5.0) H 08/26/17 05:30 Chloride 101.8 mmol/L (98-107) 08/26/17 05:30 Carbon Dioxide 22 mmol/L (22-30) 08/26/17 05:30 Anion Gap 23 mmol/L 08/26/17 05:30 BUN 80 mg/dL (7-17) H 08/26/17 05:30 Creatinine 3.4 mg/dL (0.7-1.2) H 08/26/17 05:30 Estimated GFR 17 ml/min 08/26/17 05:30 BUN/Creatinine Ratio 23.52 % 08/26/17 05:30 Glucose 193 mg/dL (65-100) H 08/26/17 05:30 POC Glucose 207 (70-105) H 08/26/17 13:26 Lactic Acid 1.60 mmol/L (0.7-2.0) 08/17/17 11:20 Calcium 8.3 mg/dL (8.4-10.2) L 08/26/17 05:30 Phosphorus 6.80 mg/dL (2.5-4.5) H D 08/26/17 05:30 Magnesium 2.60 mg/dL (1.7-2.3) H 08/26/17 05:30 Total Bilirubin 0.50 mg/dL (0.1-1.2) 08/26/17 05:30 Direct Bilirubin 0.2 mg/dL (0-0.2) 08/08/17 14:11 Indirect Bilirubin 0.3 mg/dL 08/08/17 14:11 AST 135 units/L (5-40) H 08/26/17 05:30 ALT 49 units/L (7-56) 08/26/17 05:30 Alkaline Phosphatase 211 units/L (35-129) H 08/26/17 05:30 Ammonia 25.0 umol/L (25-60) 08/08/17 14:52 Troponin T 0.132 ng/mL (0.00-0.029) H* 08/09/17 13:25 C-Reactive Protein 30.70 mg/dL (0.00-1.30) H 08/22/17 16:25 NT-Pro-B Natriuret Pep 6156 pg/mL (0-900) H 08/08/17 14:11 Total Protein 4.8 g/dL (6.3-8.2) L 08/26/17 05:30 Albumin 2.0 g/dL (3.9-5) L 08/26/17 05:30 Albumin/Globulin Ratio 0.7 % 08/26/17 05:30 Triglycerides 62 mg/dL (2-149) 08/08/17 21:23 Cholesterol 91 mg/dL (50-199) 08/08/17 21:23 LDL Cholesterol Direct 53 mg/dL (50-130) 08/08/17 21:23 HDL Cholesterol 26 mg/dL (40-59) L 08/08/17 21:23 Cholesterol/HDL Ratio 3.50 % 08/08/17 21:23 Amylase 45 units/L (27-131) 08/16/17 09:50 Lipase 34 units/L (13-60) 08/16/17 09:50 TSH 6.580 mlU/mL (0.270-4.200) H 08/08/17 14:22 Free T4 1.46 ng/dL (0.76-1.46) 08/08/17 14:22 Total Cortisol 30.1 mcg/dL () 08/13/17 06:14 Urine Color Yellow (Yellow) 08/08/17 20:15 Urine Turbidity Turbid (Clear) 08/08/17 20:15 Urine pH 8.0 (5.0-7.0) H 08/08/17 20:15 Ur Specific [place] 1.015 (1.003-1.030) 08/08/17 20:15 Urine Protein 100 mg/dl mg/dL (Negative) 08/08/17 20:15 Urine Glucose (UA) Neg mg/dL (Negative) 08/08/17 20:15 Urine Ketones Neg mg/dL (Negative) 08/08/17 20:15 Urine Blood Mod (Negative) 08/08/17 20:15 Urine Nitrite Neg (Negative) 08/08/17 20:15 Urine Bilirubin Neg (Negative) 08/08/17 20:15 Urine Urobilinogen < 2.0 mg/dL (<2.0) 08/08/17 20:15 Ur Leukocyte Esterase Lg (Negative) 08/08/17 20:15 Urine WBC (Auto) 24.0 /HPF (0.0-6.0) H 08/08/17 20:15 Urine RBC (Auto) 3.0 /HPF (0.0-6.0) 08/08/17 20:15 U Epithel Cells (Auto) 3.0 /HPF (0-13.0) 08/08/17 20:15 Urine Bacteria (Auto) 4+ /HPF (Negative) 08/08/17 20:15 Urine Mucus 3+ /HPF 08/08/17 20:15 Fluid Type Peritoneal 08/08/17 18:18 Fluid Color Straw 08/08/17 18:18 Fluid Appearance Clear 08/08/17 18:18 Fluid pH 7.74 08/08/17 18:18 Fluid WBC 4 /mm3 08/08/17 18:18 Fluid RBC 1 /mm3 08/08/17 18:18 Fluid Seg Neutrophils 12 % 08/08/17 18:18 Fluid Lymphocytes 0 % 08/08/17 18:18 Fluid Reactive Lymphs 0 % 08/08/17 18:18 Fluid Monocytes 1 % 08/08/17 18:18 Fluid Eosinophils 0 % 08/08/17 18:18 Fluid Basophils 0 % 08/08/17 18:18 Fluid Glucose 315 mg/dL (40-70) H 08/08/17 18:18 Random Vancomycin 19.5 ug/mL (0-40.0) 08/22/17 03:40 Hep Bs Antigen Non-reactive (Negative) 08/22/17 03:40 Hepatitis C Antibody Non-reactive (NonReactive) 08/22/17 03:40 Miscellaneous Test Flexitest 1 H 08/17/17 11:20 Blood Type O POSITIVE 08/21/17 08:00 Antibody Screen Negative 08/21/17 08:00 Crossmatch See Detail 08/21/17 08:00
[2017-08-26] MEDS ORDERED: TPN ADULT 1,800 ML IV SCH (20:00)
[2017-08-26] MEDS ORDERED: INTRALIPID 20% 250 ML IV SCH (20:00)
--- NOTE | 2017-08-26 22:08 | Progress Note ---
Assessment and Plan - Patient Problems (1) Leukocytosis Current Visit: Yes Status: Acute Qualifiers: Leukocytosis type: L Plan to address problem: See notes above. make sure that PD access is clean also. see notes. Probably infection from the infected PD catheter. improving. (2) Anemia Current Visit: Yes Status: Acute Qualifiers: Anemia type: A Iron deficiency anemia type: I Vitamin B12 deficiency anemia type: V Folate deficiency anemia type: F Bone marrow failure anemia type: B Hemolytic anemia type: H Other causes of anemia: O Chronic kidney disease stage: C Plan to address problem: see notes , monitor labs,. see notes above. continue to monitor labs with you. Subjective Date of service: 08/26/17 Principal diagnosis: /anemia, poor oral intake. Interval history: Patient seen today/examined, labs reviewed, case d/w she, and family.complaints of abdominal pain. Patient resting in bed in the ICU, post vascular procedure. labs reviewed, Reactive thrombocytosis, anemia of CD, leukocytosis from infection vs inflamatory process. Patient seen/examined, in bed in the ICU, on the vent post surgery.Labs reviewed , notes reviewed. will continue to monitor labs/patient with you. Replacement transfusion, if /when indicated. patient seen/examined, SBP75, on pressors., lethargic, on the vent, labs reviewed, wbc 39,000 Patient seen/examined, case reviewed, d/w her sister at the bed side. Patient seen/examined, labs reviewed, notes reviewed. severe septic shock from infected PD catheter The high wbc is all infection related. H?H low, and may get replacement transfusion with the next HD. Prognosis remain quite poor. Patient seen/examined, extubated, now on V Mask. labs reviewed. patient seen/examined, resting in bed, still some what lethargic . labs reviewed. Patient seen/examined, resting in bed., some difficulty with breathing./ lethargic. patient seen/examined, resting in bed, looked much better labs reviewed, and fair over all. Patient seen/examined, resting in bed, labs reviewed, case d/w her. Patient seen/examined, resting in bed on BIPAP., labs reviewed. Objective - Constitutional Vitals: Vital Signs - 12hr 08/26/17 08/26/17 08/26/17 11:52 14:14 16:00 Temperature 98.6 F Pulse Rate 99 H 97 H 87 Respiratory 21 16 20 Rate Blood Pressure 117/46 O2 Sat by Pulse 100 100 Oximetry 08/26/17 08/26/17 08/26/17 16:15 16:30 16:45 Temperature Pulse Rate 87 86 89 Respiratory Rate Blood Pressure 114/16 106/53 106/42 O2 Sat by Pulse Oximetry 08/26/17 08/26/17 08/26/17 17:00 17:15 17:30 Temperature Pulse Rate 88 79 73 Respiratory Rate Blood Pressure 108/44 107/15 108/40 O2 Sat by Pulse Oximetry 08/26/17 08/26/17 08/26/17 17:45 18:00 18:15 Temperature Pulse Rate 72 70 72 Respiratory Rate Blood Pressure 104/42 104/44 108/46 O2 Sat by Pulse Oximetry 08/26/17 08/26/17 08/26/17 18:30 18:45 19:00 Temperature Pulse Rate 81 90 88 Respiratory Rate Blood Pressure 116/48 121/57 110/58 O2 Sat by Pulse Oximetry 08/26/17 19:05 Temperature 98.4 F Pulse Rate 84 Respiratory 22 Rate Blood Pressure 120/48 O2 Sat by Pulse Oximetry General appearance: Present: mild distress, well-nourished - EENT Eyes: PERRL, EOM intact ENT: hearing intact, clear oral mucosa Ears: bilateral: normal - Neck Neck: supple, normal ROM - Respiratory Respiratory: bilateral: diminished - Breasts Breasts: deferred - Cardiovascular Rhythm: regular Heart Sounds: Present: S1 & S2. Absent: gallop, rub Extremities: pulses intact, No edema, normal color, Full ROM - Gastrointestinal General gastrointestinal: Present: soft, non-tender, non-distended, normal bowel sounds Rectal Exam: deferred - Genitourinary Female genitourinary: deferred - Integumentary Integumentary: clear, warm, dry - Musculoskeletal Musculoskeletal: 1, strength equal bilaterally - Neurologic Neurologic: moves all extremities - Psychiatric Psychiatric: appropriate mood/affect, memory intact - Labs CBC & Chem 7: 08/26/17 05:30 08/26/17 05:30 Labs: Abnormal lab results 08/25/17 08/26/17 08/26/17 Range/Units 11:53 05:30 05:30 WBC 33.5 H (4.5-11.0) K/mm3 RBC 2.47 L (3.65-5.03) M/mm3 Hgb 7.3 L (10.1-14.3) gm/dl Hct 23.0 L (30.3-42.9) % RDW 21.3 H (13.2-15.2) % Seg Neuts % (Manual) 92.0 H (40.0-70.0) % Lymphocytes % (Manual) 1.0 L (13.4-35.0) % Seg Neutrophils # Man 30.8 H (1.8-7.7) K/mm3 Lymphocytes # (Manual) 0.3 L (1.2-5.4) K/mm3 Potassium 5.2 H (3.6-5.0) mmol/L BUN 80 H (7-17) mg/dL Creatinine 3.4 H (0.7-1.2) mg/dL Glucose 193 H (65-100) mg/dL POC Glucose 191 H (70-105) Calcium 8.3 L (8.4-10.2) mg/dL Phosphorus 6.80 H D (2.5-4.5) mg/dL Magnesium 2.60 H (1.7-2.3) mg/dL AST 135 H (5-40) units/L Alkaline Phosphatase 211 H (35-129) units/L Total Protein 4.8 L (6.3-8.2) g/dL Albumin 2.0 L (3.9-5) g/dL 08/26/17 08/26/17 Range/Units 06:44 13:26 WBC (4.5-11.0) K/mm3 RBC (3.65-5.03) M/mm3 Hgb (10.1-14.3) gm/dl Hct (30.3-42.9) % RDW (13.2-15.2) % Seg Neuts % (Manual) (40.0-70.0) % Lymphocytes % (Manual) (13.4-35.0) % Seg Neutrophils # Man (1.8-7.7) K/mm3 Lymphocytes # (Manual) (1.2-5.4) K/mm3 Potassium (3.6-5.0) mmol/L BUN (7-17) mg/dL Creatinine (0.7-1.2) mg/dL Glucose (65-100) mg/dL POC Glucose 232 H 207 H (70-105) Calcium (8.4-10.2) mg/dL Phosphorus (2.5-4.5) mg/dL Magnesium (1.7-2.3) mg/dL AST (5-40) units/L Alkaline Phosphatase (35-129) units/L Total Protein (6.3-8.2) g/dL Albumin (3.9-5) g/dL
[2017-08-27] MEDS: HEPARIN SUB-Q SCH ×3 (04:59→22:50)
[2017-08-27 06:40] LABS: Hematocrit 25.1 % (30.3-42.9); Hemoglobin 8.4 gm/dl (10.1-14.3); Mean Corpuscular HGB Conc 33 % (30-34); Mean Corpuscular Hemoglobin 31 pg (28-32); Mean Corpuscular Volume 91 fl (79-97); Platelet Count 421 K/mm3 (140-440); Red Blood Count 2.75 M/mm3 (3.65-5.03)
[2017-08-27 06:48] LABS: Red Cell Distribution Width 21.8 % (13.2-15.2)
[2017-08-27 06:55] LABS: Calcium 8.5 mg/dL (8.4-10.2); Chloride 99.4 mmol/L (98-107); Magnesium 2.2 mg/dL (1.7-2.3); Phosphorous 4.9 mg/dL (2.5-4.5); Potassium 4.9 mmol/L (3.6-5.0)
[2017-08-27 08:02] LABS: Anisocytosis 1+; Blastocytes % (Manual) 0 %; Macrocytosis Few; Nucleated Red Blood Cells 0.5 % (0.0-0.9); Polychromasia Few; Total Cells Counted Percent 3.5
[2017-08-27 08:03] LABS: Target Cells 1+
[2017-08-27 08:04] LABS: Diff Status Complete
--- NOTE | 2017-08-27 09:58 | Progress Note ---
Assessment and Plan - Patient Problems (1) ESRD (end stage renal disease) on dialysis Current Visit: Yes Status: Acute Plan to address problem: Continue HD, MWF schedule. Patient is on TPN. (2) Hyperkalemia Current Visit: Yes Status: Acute Plan to address problem: K level is better. (3) Anemia Current Visit: No Status: Chronic Qualifiers: Anemia type: due to chronic kidney disease Iron deficiency anemia type: I Vitamin B12 deficiency anemia type: V Folate deficiency anemia type: F Bone marrow failure anemia type: B Hemolytic anemia type: H Other causes of anemia: O Chronic kidney disease stage: on chronic dialysis Qualified Code(s ): N18.6 - End stage renal disease; D63.1 - Anemia in chronic kidney disease; Z99.2 - Dependence on renal dialysis Plan to address problem: Epogen. S/p PRBC. (4) Hypotension Current Visit: Yes Status: Chronic Qualifiers: Hypotension type: H Trimester: T Plan to address problem: BP is better. (5) Leukocytosis Current Visit: Yes Status: Acute Qualifiers: Leukocytosis type: unspecified Qualified Code(s): D72.829 - Elevated white blood cell count, unspecified (6) Acute respiratory failure with hypoxemia Current Visit: Yes Status: Acute (7) Sepsis Current Visit: Yes Status: Acute Qualifiers: Sepsis type: S Subjective Date of service: 08/27/17 Principal diagnosis: /anemia, poor oral intake. Interval history: Patient was seen and examined at the bedside. Objective - Vital Signs Vital signs: Vital Signs - 12hr 08/26/17 08/26/17 08/27/17 22:30 23:00 00:48 Temperature 98.1 F 98.3 F Pulse Rate 101 H 74 Pulse Rate [ 103 H Apical] Pulse Rate [ 103 H From Monitor] Respiratory 24 22 24 Rate Blood Pressure 99/54 103/53 [Left] O2 Sat by Pulse 97 100 Oximetry 08/27/17 08/27/17 08/27/17 04:10 04:15 06:13 Temperature 98.3 F Pulse Rate 74 100 H Pulse Rate [ Apical] Pulse Rate [ From Monitor] Respiratory 24 Rate Blood Pressure 114/67 [Left] O2 Sat by Pulse 100 93 Oximetry 08/27/17 08:46 Temperature Pulse Rate Pulse Rate [ Apical] Pulse Rate [ From Monitor] Respiratory Rate Blood Pressure [Left] O2 Sat by Pulse 100 Oximetry - General Appearance General appearance: well-developed, appears stated age, obese, other (no distress, right groin hemodialysis catheter noted) EENT: ATNC, PERRL, hearing intact Neck: supple Respiratory: Present: Clear to Ascultation Cardiology: regular, S1S2, no murmurs Gastrointestinal: normoactive bowel sounds, no tenderness, obese Integumentary: no rash Neurologic: other (barely able to follow commands) Musculoskeletal: other (1+ edema of both LEs) Psychiatric: cooperative - Lab 08/30/17 05:20 08/30/17 05:20 Most recent lab results Calcium 8.5 mg/dL (8.4-10.2) 08/27/17 06:20 Phosphorus 4.90 mg/dL (2.5-4.5) H D 08/27/17 06:20 Magnesium 2.20 mg/dL (1.7-2.3) 08/27/17 06:20
--- NOTE | 2017-08-27 10:51 | Progress Note ---
Assessment and Plan 62 y.o. F s/p ex-lap, lysis of adhesions, G tube placement, MERVIN drain placement: POD 9 gastric perforation: poor overall nutritional status making the defect difficult to re-seal despite intra-luminal decompression and external drainage. Mervin now brown/serous. Record MERVIN output and G tube output in order to assess if she is adequately being decompressed. . Monitor output and color. Nursing to strip MERVIN during shift. Likely prolonged healing time of small gastric perforation. Keep NPO. No manipulation of NG or G or MERVIN. Keep NG to low intermit. wall sunction. No manipulation. No flushes. No medications -Pt likely dc to LTACH in the next couple of days. Will need outpt upper GI study to eval for leak. Prior to discharge will rec. timing of study. Midline wound: culture sent. Non foul smelling discharge. Likely same drainage as from MERIVN. Keep milking MERVIN in order to keep open . Change dressing on midline wound as need as it becomes saturated otherwise daily. Remove packing from midline wound: irrigate with saline and dry. Lightly pack with kerlex. covere with 4x4s and cover with abd. pad. Tape. Prolonged healing anticipated due to poor nutrition and steroids. Will not start vit A supplementation due to possible vit A toxicity from supplementation due to renal failure. -continue PPI ID: Covering Gut grace 2/2 perforation: merrom -completed. diflucan - per ID Leukocytosis improving sepsis: likely due intra-abdominal process. Weaned off levo. ID following. f/u rpt cultures continue abx, and abdominal drainage. TPN for nutrition Resp: s/p extubation. Venti mask with humidfied O2. Rec. Chest PT. renal failure: HD per renal. will defer to renal for dialysis and fluid/ electrolyte management. HD Saturday. HD cath. Right fem. Sacral wound and RLE wound: wound care following. GI proph: PPI DVT proph: hep sub q restarted. no contraindication for sub q heparin from surgical standpoint - Patient Problems (1) Peritonitis (acute) generalized Current Visit: Yes Status: Acute Subjective Narrative: Pt seen and examined at bedside. She is alert and awake. She denies sob or abdominal pain. Family is at bedside. Midline dressing changed this am due to saturation afebrile NG x G tube light orange/green bilious 315cc MERVIN 110 brown ivan x bm x Objective Vital Signs - 12hr 10/02/17 10/03/17 10/03/17 23:00 00:48 04:10 Temperature 98.3 F Pulse Rate 74 74 Pulse Rate [ 103 H Apical] Pulse Rate [ 103 H From Monitor] Respiratory 22 24 Rate Blood Pressure Blood Pressure 103/53 [Left] O2 Sat by Pulse 97 100 Oximetry 08/27/17 08/27/17 08/27/17 04:15 06:13 08:46 Temperature 98.3 F Pulse Rate 100 H Pulse Rate [ Apical] Pulse Rate [ From Monitor] Respiratory 24 Rate Blood Pressure Blood Pressure 114/67 [Left] O2 Sat by Pulse 100 93 100 Oximetry 08/27/17 09:00 Temperature 98.8 F Pulse Rate Pulse Rate [ Apical] Pulse Rate [ From Monitor] Respiratory 24 Rate Blood Pressure 116/70 Blood Pressure [Left] O2 Sat by Pulse 100 Oximetry - General physical appearance well developed, well nourished, no pain, obese - Respiratory normal expansion, normal respiratory effort - Abdomen soft, bowel sounds normal, other (tender epigastric area, no rebound no guarding. midline incision: packing removed saturated with brown/yellow fluid. non foul smelling. wound irrigated with saline and cleaned with betadine. repacked with kerlex. prev. pd cath wound: healing. covered with dry gauze. MERVIN and G tube in place. ) - Genitourinary other (ivan ) - Neurologic other (Rec. her family but does not remember names. responds appropriately to questions ) - Psychiatric oriented to person - Labs 08/27/17 06:20 08/27/17 06:20 Diabetes panel 08/27/17 Range/Units 06:20 Sodium 140 (137-145) mmol/L Potassium 4.9 (3.6-5.0) mmol/L Chloride 99.4 (98-107) mmol/L Carbon Dioxide 25 (22-30) mmol/L BUN 61 H (7-17) mg/dL Creatinine 2.6 H (0.7-1.2) mg/dL Glucose 184 H (65-100) mg/dL Calcium 8.5 (8.4-10.2) mg/dL Calcium panel 08/27/17 Range/Units 06:20 Calcium 8.5 (8.4-10.2) mg/dL Phosphorus 4.90 H D (2.5-4.5) mg/dL Pituitary panel 08/27/17 Range/Units 06:20 Sodium 140 (137-145) mmol/L Potassium 4.9 (3.6-5.0) mmol/L Chloride 99.4 (98-107) mmol/L Carbon Dioxide 25 (22-30) mmol/L BUN 61 H (7-17) mg/dL Creatinine 2.6 H (0.7-1.2) mg/dL Glucose 184 H (65-100) mg/dL Calcium 8.5 (8.4-10.2) mg/dL Adrenal panel 08/27/17 Range/Units 06:20 Sodium 140 (137-145) mmol/L Potassium 4.9 (3.6-5.0) mmol/L Chloride 99.4 (98-107) mmol/L Carbon Dioxide 25 (22-30) mmol/L BUN 61 H (7-17) mg/dL Creatinine 2.6 H (0.7-1.2) mg/dL Glucose 184 H (65-100) mg/dL Calcium 8.5 (8.4-10.2) mg/dL
[2017-08-27] MEDS: DIFLUCAN 200 MG/100 ML BAG IV SCH (10:54)
[2017-08-27] MEDS: PROTONIX IV SCH ×2 (10:54→22:50)
--- NOTE | 2017-08-27 11:21 | Progress Note ---
Assessment and Plan Assessment: 1) Sepsis with septic shock: resolved, leukocytosis went up today; source bowel obstruction / suspect ?gastric perforation. -CRP=28-->32-->34 -->30 -procalcitonin=1.3 2) Bowel obstruction / suspect ?gastric perforation ? peritonitis -S/P Exlap, G-tube placement, EGD, abdominal washout and removal of PD -OR findings - bowel obstruction due to entanglement of PD cath, abscess cavity in LUQ and ? suspect perforation of unclear location -Repeat CT - improved ascitis 3) CA-UTI: chronic ivan exchanged every 4 weeks and ureteral stents in place which are exchanged every 6 months ? urine cultures still pending should r/o MDR bacteria 4) Paraplegia 5) ESRD on PD - no evidence of peritonitis, wbc count 2. 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 6) Recent pancreatitis 7) Penicillin allergy-has taken keflex w/o problems Plan: -monitor surgical wound and leukocytosis off meropenem -continue fluconazole day 11 of 14 -remove femoral cath and a perm HD cath to be placed -please discuss with urology need for "chronic ivan in place", can ivan be removed since she has little urine output? Thank you Dr Davis for your consultation, will follow up with you. Ramya Lang MD Infectious Diseases Specialist [facility] ([facility] M [phone] O [phone] Subjective Date of service: 08/27/17 Principal diagnosis: /anemia, poor oral intake. Interval history: More alert on NC O2 no complaints Microbiology: Blood cultures: 08/08 neg 08/12 neg 08/16 neg 08/20 neg Urine cultures: 08/08 10-100K skin grace Respiratory cultures: Wound cultures: 08/26 Gram GNRs Stool cultures: Other: 08/08 peritoneal fluid + DRYING [employer] WORKER/Diphteroids Current Antimicrobials: 08/13 meropenem 08/16 fluconazole Previous Antimicrobials: 08/10 levaquin 08/16 vancomycin Objective - Exam Narrative Exam: General appearance: alert on CPAP Eyes: anicteric sclerae, moist conjunctivae; no lid-lag; PERRLA HENT: Atraumatic; limited OP Neck: Trachea midline; supple, no thyromegaly or lymphadenopathy Lungs: coarse BS moreno CV: RRR, no murmurs Abdomen: soft, midline surgical wound with kelli and mild serous drainage a drain covered with surg dressings Gtube Extremities: + peripheral edema + leg ulcer Skin: Normal temperature, turgor and texture; no rash, ulcers or subcutaneous nodules Psych: stable. Neuro: alert talking moving all extremities Lines: Right vascath femoral / Right IJ Nair 08/16 - Constitutional Vitals: Vital Signs Temp Pulse Resp BP Pulse Ox 98.8 F 100 H 24 116/70 100 08/27/17 09:00 08/27/17 04:15 08/27/17 09:00 08/27/17 09:00 08/27/17 09:00 Temperature -Last 24 Hours Temperature 98.8 F Temperature 98.3 F Temperature 98.3 F Temperature 98.1 F Temperature 98.4 F Temperature 98.6 F - Labs CBC & Chem 7: 08/27/17 06:20 08/27/17 06:20 Labs: Abnormal lab results 08/26/17 08/27/17 08/27/17 Range/Units 13:26 01:08 06:20 WBC 35.0 H (4.5-11.0) K/mm3 RBC 2.75 L (3.65-5.03) M/mm3 Hgb 8.4 L (10.1-14.3) gm/dl Hct 25.1 L (30.3-42.9) % RDW 21.8 H (13.2-15.2) % Lymphocytes % (Manual) 4.5 L (13.4-35.0) % Seg Neutrophils # Man 31.9 H (1.8-7.7) K/mm3 Monocytes # (Manual) 1.2 H (0.0-0.8) K/mm3 BUN (7-17) mg/dL Creatinine (0.7-1.2) mg/dL Glucose (65-100) mg/dL POC Glucose 207 H 146 H (70-105) Phosphorus (2.5-4.5) mg/dL 08/27/17 08/27/17 08/27/17 Range/Units 06:20 07:01 09:17 WBC (4.5-11.0) K/mm3 RBC (3.65-5.03) M/mm3 Hgb (10.1-14.3) gm/dl Hct (30.3-42.9) % RDW (13.2-15.2) % Lymphocytes % (Manual) (13.4-35.0) % Seg Neutrophils # Man (1.8-7.7) K/mm3 Monocytes # (Manual) (0.0-0.8) K/mm3 BUN 61 H (7-17) mg/dL Creatinine 2.6 H (0.7-1.2) mg/dL Glucose 184 H (65-100) mg/dL POC Glucose 165 H 198 H (70-105) Phosphorus 4.90 H D (2.5-4.5) mg/dL
--- NOTE | 2017-08-27 13:04 | Event Note ---
Date: 08/27/17 Pt s/p fem vas cath which she is using for HD. Discussed with ID. Will convert to upper body perma-cath tomorrow. Okay to remove femoral vas cath once the new pc placed and functional.
--- NOTE | 2017-08-27 15:21 | Progress Note ---
Assessment and Plan Imp: 1. Acute bacterial peritonitis/abscess s/p PD cath removal and exlap 2. SBO 3. Acute respiratory failure, hypoxia 4. Morbid obesity, excess cals. 5. ESRD 6. Sepsis, better 7. Leukemoid reaction due to high-dose steroids Rec: 1. Taper steroids again 2. Monitor volume status with TPN; repeat CXR 3. BIPAP prn only (does not appear to need currently); wean O2 to keep sats 88% or above 4. DVT PPx 5. Further plans pending clinical course Plan of care reviewed w/ patient, she understands/agrees Subjective Date of service: 08/27/17 Principal diagnosis: /anemia, poor oral intake. Interval history: No events. Awake on 35% face mask. SOB better. No pain. No other complaints currently. Active Medications Al Hydrox/Mg Hydrox/Simethicone (Alum-Mag Hydrox-Simeth [id number]/5ml) 15 ml PO Q4H PRN PRN Reason: Indigestion Last Admin: 08/09/17 23:37 Dose: 15 ml Albuterol (Proventil) 2.5 mg IH Q4HRT PRN PRN Reason: Shortness Of Breath Last Admin: 08/24/17 21:49 Dose: 2.5 mg Heparin Sodium (Porcine) (Heparin) 5,000 unit IV ISIAH PRN PRN Reason: hemodialysis Last Admin: 08/26/17 18:57 Dose: 5,000 unit Heparin Sodium (Porcine) (Heparin) 5,000 unit SUB-Q Q8HR [facility]ORIA Last Admin: 08/27/17 04:59 Dose: 5,000 unit Hydrocortisone Sodium Succinate (Solu-Cortef) 50 mg IV Q8HR [facility] Last Admin: 08/27/17 15:07 Dose: 50 mg Hydromorphone HCl (Dilaudid) 1 mg IV Q4H PRN PRN Reason: Pain , Severe (7-10) Last Admin: 08/26/17 12:25 Dose: 1 mg Hydrophilic Ointment (Vaseline Lip Therapy) 1 applic TP DIRECT PRN PRN Reason: DRY LIPS Fluconazole (Diflucan) 200 mg in 100 mls @ 100 mls/hr IV Q24HR GLORIA PRN Reason: Protocol Last Admin: 08/27/17 10:54 Dose: 100 mls/hr Sodium Chloride (Nacl 0.9%) 100 mls @ 999 mls/hr IV ISIAH PRN PRN Reason: Hypotension Amino Acids/Electrolytes/Dextrose (Tpn Adult) 1,800 mls @ 75 mls/hr IV DAILY@ 1999 [facility] PRN Reason: Protocol Stop: 08/27/17 19:59 Last Admin: 08/26/17 20:53 Dose: 75 mls/hr Amino Acids/Electrolytes/Dextrose (Tpn Adult) 1,800 mls @ 75 mls/hr IV DAILY@ 1999 [facility] PRN Reason: Protocol Stop: 08/28/17 19:59 Insulin Human Regular (Novolin R) 0 units SUB-Q Q6HR GLORIA PRN Reason: Protocol Last Admin: 08/27/17 15:06 Dose: 3 units Multi-Ingred Cream/Lotion/Oil/Oint (Artificial Tears Ophth Oint) 1 applic OU Q4H PRN PRN Reason: Dry Eye(s) Ondansetron HCl (Zofran) 4 mg IV Q6H PRN PRN Reason: Nausea And Vomiting Last Admin: 08/16/17 22:50 Dose: 4 mg Pantoprazole Sodium (Protonix) 40 mg IV BID [facility] Last Admin: 08/27/17 10:54 Dose: 40 mg Sodium Chloride (Nacl 0.9% 500 Ml) 1 ml IV DIRECT GLORIA Zolpidem Tartrate (Ambien) 5 mg PO QHS PRN PRN Reason: Sleep Last Admin: 08/09/17 23:37 Dose: 5 mg Objective Vital Signs - 12hr 08/27/17 08/27/17 08/27/17 04:10 04:15 06:13 Temperature 98.3 F Pulse Rate 74 100 H Respiratory 24 Rate Blood Pressure Blood Pressure 114/67 [Left] O2 Sat by Pulse 100 93 Oximetry 08/27/17 08/27/17 08:46 09:00 Temperature 98.8 F Pulse Rate Respiratory 24 Rate Blood Pressure 116/70 Blood Pressure [Left] O2 Sat by Pulse 100 100 Oximetry Constitutional: no acute distress, alert Eyes: non-icteric ENT: oropharynx moist, other (NG tube in place in right nare) Neck: supple, no lymphadenopathy Effort: normal Ascultation: Bilateral: wheezes (faint expiratory wheezes), rhonchi (mild) Cardiovascular: regular rate and rhythm (no mrg) Gastrointestinal: absent bowel sounds, non-tender, other (abdominal incision with dressing noted, obese) Extremities: no cyanosis, pink and warm, edema (3+ bilateral LE edema) Neurologic: normal mental status, non-focal exam, pupils equal and round Psychiatric: mood appropriate, affect normal CBC and BMP: 08/27/17 06:20 08/27/17 06:20 ABG, PT/INR, D-dimer: ABG POC ABG pH 7.481 (7.35-7.45) H 08/21/17 03:14 POC ABG pCO2 29.6 (35-45) L 08/21/17 03:14 POC ABG pO2 104 (80-105) 08/21/17 03:14 POC ABG HCO3 22.1 08/21/17 03:14 POC ABG Total CO2 23 08/21/17 03:14 POC ABG O2 Sat 98 08/21/17 03:14 PT/INR, D-dimer PT 16.0 Sec. (12.2-14.9) H 08/17/17 11:20 INR 1.29 (0.87-1.13) H 08/17/17 11:20 Abnormal lab findings: Abnormal Labs 08/08/17 08/08/17 08/09/17 21:23 21:31 11:19 WBC 15.7 H RBC 2.93 L Hgb 8.7 L Hct 26.8 L MCV RDW 19.2 H Plt Count Lymph % (Auto) [place] % (Auto) [place] # Seg Neutrophils % Seg Neuts % (Manual) Lymphocytes % (Manual) Monocytes % (Manual) Nucleated RBC % Seg Neutrophils # Seg Neutrophils # Man Lymphocytes # (Manual) Monocytes # (Manual) Eosinophils # (Manual) Basophils # (Manual) PT INR POC ABG pH 7.490 H POC ABG pCO2 POC ABG pO2 122 H Sodium Potassium Chloride Carbon Dioxide BUN Creatinine Glucose POC Glucose Calcium Phosphorus Magnesium AST ALT Alkaline Phosphatase Troponin T 0.133 H* C-Reactive Protein Total Protein Albumin HDL Cholesterol 26 L Miscellaneous Test Crossmatch 08/09/17 08/10/17 08/10/17 13:25 04:45 04:45 WBC 15.5 H RBC 2.97 L Hgb 8.9 L Hct 27.0 L MCV RDW 19.2 H Plt Count Lymph % (Auto) [place] % (Auto) [place] # Seg Neutrophils % Seg Neuts % (Manual) 73.0 H Lymphocytes % (Manual) 7.0 L Monocytes % (Manual) 14.0 H Nucleated RBC % Seg Neutrophils # Seg Neutrophils # Man 11.3 H Lymphocytes # (Manual) 1.1 L Monocytes # (Manual) 2.2 H Eosinophils # (Manual) Basophils # (Manual) 0.2 H PT INR POC ABG pH POC ABG pCO2 POC ABG pO2 Sodium Potassium 3.3 L Chloride 97.3 L Carbon Dioxide 21 L BUN 23 H Creatinine 6.5 H Glucose POC Glucose Calcium 7.3 L Phosphorus Magnesium AST ALT Alkaline Phosphatase 138 H Troponin T 0.132 H* C-Reactive Protein Total Protein 4.8 L Albumin 1.4 L HDL Cholesterol Miscellaneous Test Crossmatch 08/11/17 08/11/17 08/12/17 04:00 04:00 05:50 WBC 19.3 H RBC 3.10 L Hgb 9.5 L Hct 28.2 L MCV RDW 19.2 H Plt Count 463 H Lymph % (Auto) 7.5 L [place] % (Auto) 14.6 H [place] # 2.8 H Seg Neutrophils % 77.0 H Seg Neuts % (Manual) Lymphocytes % (Manual) Monocytes % (Manual) Nucleated RBC % Seg Neutrophils # 14.8 H Seg Neutrophils # Man Lymphocytes # (Manual) Monocytes # (Manual) Eosinophils # (Manual) Basophils # (Manual) PT INR POC ABG pH POC ABG pCO2 POC ABG pO2 Sodium 136 L 136 L Potassium 3.3 L Chloride 96.3 L 96.6 L Carbon Dioxide BUN 26 H 26 H Creatinine 6.4 H 6.2 H Glucose 135 H 133 H POC Glucose Calcium 8.2 L Phosphorus Magnesium 1.30 L AST ALT Alkaline Phosphatase 139 H Troponin T C-Reactive Protein Total Protein 5.5 L Albumin 1.7 L HDL Cholesterol Miscellaneous Test Crossmatch 08/12/17 08/12/17 08/12/17 05:50 05:50 05:50 WBC 20.1 H RBC 3.06 L Hgb 9.3 L Hct 27.9 L MCV RDW 18.4 H Plt Count 471 H Lymph % (Auto) [place] % (Auto) [place] # Seg Neutrophils % Seg Neuts % (Manual) 85.0 H Lymphocytes % (Manual) 8.0 L Monocytes % (Manual) Nucleated RBC % Seg Neutrophils # Seg Neutrophils # Man 17.1 H Lymphocytes # (Manual) Monocytes # (Manual) 1.0 H Eosinophils # (Manual) Basophils # (Manual) PT 15.2 H INR 1.14 H POC ABG pH POC ABG pCO2 POC ABG pO2 Sodium Potassium Chloride Carbon Dioxide BUN Creatinine Glucose POC Glucose Calcium Phosphorus Magnesium AST ALT Alkaline Phosphatase Troponin T C-Reactive Protein 28.90 H Total Protein Albumin HDL Cholesterol Miscellaneous Test Crossmatch 08/12/17 08/13/17 08/13/17 16:23 06:14 06:14 WBC 21.8 H RBC 3.11 L Hgb 9.4 L Hct 28.2 L MCV RDW 18.2 H Plt Count 492 H Lymph % (Auto) [place] % (Auto) [place] # Seg Neutrophils % Seg Neuts % (Manual) 73.0 H Lymphocytes % (Manual) 2.0 L Monocytes % (Manual) 15 H Nucleated RBC % Seg Neutrophils # Seg Neutrophils # Man 15.9 H Lymphocytes # (Manual) 0.4 L Monocytes # (Manual) 2.4 H Eosinophils # (Manual) Basophils # (Manual) PT INR POC ABG pH POC ABG pCO2 POC ABG pO2 Sodium Potassium Chloride 96.2 L Carbon Dioxide BUN 28 H Creatinine 5.6 H Glucose 114 H POC Glucose Calcium Phosphorus Magnesium AST ALT Alkaline Phosphatase Troponin T C-Reactive Protein 26.10 H Total Protein Albumin HDL Cholesterol Miscellaneous Test Crossmatch 08/13/17 08/14/17 08/14/17 16:39 04:00 04:00 WBC 22.1 H RBC 3.25 L Hgb 9.9 L Hct 29.5 L MCV RDW 17.9 H Plt Count 525 H Lymph % (Auto) [place] % (Auto) [place] # Seg Neutrophils % Seg Neuts % (Manual) 74.0 H Lymphocytes % (Manual) 8.0 L Monocytes % (Manual) 12.0 H Nucleated RBC % Seg Neutrophils # Seg Neutrophils # Man 16.4 H Lymphocytes # (Manual) Monocytes # (Manual) 2.7 H Eosinophils # (Manual) Basophils # (Manual) PT INR POC ABG pH POC ABG pCO2 POC ABG pO2 Sodium 134 L Potassium 3.3 L Chloride 93.3 L Carbon Dioxide BUN 27 H Creatinine 6.0 H Glucose 152 H POC Glucose 151 H Calcium Phosphorus Magnesium AST ALT Alkaline Phosphatase Troponin T C-Reactive Protein Total Protein Albumin HDL Cholesterol Miscellaneous Test Crossmatch 08/15/17 08/16/17 08/16/17 09:10 09:50 09:50 WBC 31.1 H RBC 3.21 L Hgb 9.6 L Hct 29.3 L MCV RDW 18.1 H Plt Count 642 H Lymph % (Auto) [place] % (Auto) [place] # Seg Neutrophils % Seg Neuts % (Manual) 74.0 H Lymphocytes % (Manual) 4.0 L Monocytes % (Manual) 9.0 H Nucleated RBC % Seg Neutrophils # Seg Neutrophils # Man 23.0 H Lymphocytes # (Manual) Monocytes # (Manual) 2.8 H Eosinophils # (Manual) Basophils # (Manual) PT INR POC ABG pH POC ABG pCO2 POC ABG pO2 Sodium 136 L 136 L Potassium 3.5 L Chloride 97.6 L 94.9 L Carbon Dioxide BUN 27 H 28 H Creatinine 5.6 H 5.5 H Glucose 117 H 103 H POC Glucose Calcium Phosphorus Magnesium AST ALT Alkaline Phosphatase 137 H Troponin T C-Reactive Protein Total Protein 5.4 L Albumin 1.5 L HDL Cholesterol Miscellaneous Test Crossmatch 08/16/17 08/17/17 08/17/17 09:50 05:00 06:26 WBC RBC Hgb Hct MCV RDW Plt Count Lymph % (Auto) [place] % (Auto) [place] # Seg Neutrophils % Seg Neuts % (Manual) Lymphocytes % (Manual) Monocytes % (Manual) Nucleated RBC % Seg Neutrophils # Seg Neutrophils # Man Lymphocytes # (Manual) Monocytes # (Manual) Eosinophils # (Manual) Basophils # (Manual) PT INR POC ABG pH POC ABG pCO2 POC ABG pO2 Sodium 134 L Potassium 3.0 L Chloride 97.8 L Carbon Dioxide BUN 30 H Creatinine 5.3 H Glucose 147 H POC Glucose 165 H Calcium 7.5 L Phosphorus Magnesium AST ALT Alkaline Phosphatase Troponin T C-Reactive Protein 32.30 H Total Protein Albumin HDL Cholesterol Miscellaneous Test Crossmatch 08/17/17 08/17/17 08/17/17 10:56 11:20 11:20 WBC 39.1 H RBC 3.10 L Hgb 9.2 L Hct 28.6 L MCV RDW 18.3 H Plt Count 580 H Lymph % (Auto) [place] % (Auto) [place] # Seg Neutrophils % Seg Neuts % (Manual) 89.5 H Lymphocytes % (Manual) 3.5 L Monocytes % (Manual) Nucleated RBC % Seg Neutrophils # Seg Neutrophils # Man 35.0 H Lymphocytes # (Manual) Monocytes # (Manual) 2.5 H Eosinophils # (Manual) Basophils # (Manual) 0.2 H PT INR POC ABG pH 7.464 H POC ABG pCO2 34.1 L POC ABG pO2 75 L Sodium Potassium Chloride Carbon Dioxide BUN Creatinine Glucose POC Glucose Calcium Phosphorus Magnesium AST ALT Alkaline Phosphatase Troponin T C-Reactive Protein Total Protein Albumin HDL Cholesterol Miscellaneous Test Flexitest 1 H Crossmatch 08/17/17 08/17/17 08/17/17 11:20 16:57 20:20 WBC 34.4 H RBC 2.81 L Hgb 8.4 L Hct 26.0 L MCV RDW 17.8 H Plt Count 455 H Lymph % (Auto) [place] % (Auto) [place] # Seg Neutrophils % Seg Neuts % (Manual) Lymphocytes % (Manual) 3.5 L Monocytes % (Manual) Nucleated RBC % 5.0 H Seg Neutrophils # Seg Neutrophils # Man 16.5 H Lymphocytes # (Manual) Monocytes # (Manual) 1.0 H Eosinophils # (Manual) Basophils # (Manual) PT 16.0 H INR 1.29 H POC ABG pH POC ABG pCO2 POC ABG pO2 Sodium 135 L Potassium 2.9 L* Chloride Carbon Dioxide 20 L BUN 32 H Creatinine 5.4 H Glucose 129 H POC Glucose Calcium 7.5 L Phosphorus Magnesium 1.50 L AST 85 H ALT Alkaline Phosphatase Troponin T C-Reactive Protein Total Protein 4.0 L D Albumin 1.6 L HDL Cholesterol Miscellaneous Test Crossmatch 08/17/17 08/17/17 08/18/17 20:54 23:47 04:26 WBC RBC Hgb Hct MCV RDW Plt Count Lymph % (Auto) [place] % (Auto) [place] # Seg Neutrophils % Seg Neuts % (Manual) Lymphocytes % (Manual) Monocytes % (Manual) Nucleated RBC % Seg Neutrophils # Seg Neutrophils # Man Lymphocytes # (Manual) Monocytes # (Manual) Eosinophils # (Manual) Basophils # (Manual) PT INR POC ABG pH 7.557 H POC ABG pCO2 23.1 L 29.0 L POC ABG pO2 187 H 148 H Sodium Potassium Chloride Carbon Dioxide BUN Creatinine Glucose POC Glucose 188 H Calcium Phosphorus Magnesium AST ALT Alkaline Phosphatase Troponin T C-Reactive Protein Total Protein Albumin HDL Cholesterol Miscellaneous Test Crossmatch 08/18/17 08/18/17 08/18/17 05:51 11:44 17:07 WBC RBC Hgb Hct MCV RDW Plt Count Lymph % (Auto) [place] % (Auto) [place] # Seg Neutrophils % Seg Neuts % (Manual) Lymphocytes % (Manual) Monocytes % (Manual) Nucleated RBC % Seg Neutrophils # Seg Neutrophils # Man Lymphocytes # (Manual) Monocytes # (Manual) Eosinophils # (Manual) Basophils # (Manual) PT INR POC ABG pH POC ABG pCO2 POC ABG pO2 Sodium Potassium Chloride Carbon Dioxide BUN Creatinine Glucose POC Glucose 202 H 195 H 182 H Calcium Phosphorus Magnesium AST ALT Alkaline Phosphatase Troponin T C-Reactive Protein Total Protein Albumin HDL Cholesterol Miscellaneous Test Crossmatch 08/18/17 08/18/17 08/18/17 23:45 Unknown Unknown WBC 39.0 H RBC 2.84 L Hgb 8.4 L Hct 26.5 L MCV RDW 18.0 H Plt Count 476 H Lymph % (Auto) [place] % (Auto) [place] # Seg Neutrophils % Seg Neuts % (Manual) Lymphocytes % (Manual) 7.0 L Monocytes % (Manual) 10.0 H Nucleated RBC % 3.0 H Seg Neutrophils # Seg Neutrophils # Man 15.6 H Lymphocytes # (Manual) Monocytes # (Manual) 3.9 H Eosinophils # (Manual) Basophils # (Manual) PT INR POC ABG pH POC ABG pCO2 POC ABG pO2 Sodium Potassium Chloride Carbon Dioxide 19 L BUN 34 H Creatinine 5.6 H Glucose 201 H POC Glucose 163 H Calcium 7.8 L Phosphorus 1.90 L D Magnesium 1.60 L AST ALT Alkaline Phosphatase Troponin T C-Reactive Protein Total Protein Albumin HDL Cholesterol Miscellaneous Test Crossmatch 08/19/17 08/19/17 08/19/17 04:18 05:00 05:00 WBC 40.0 H RBC 2.46 L Hgb 7.3 L Hct 22.6 L MCV RDW 18.1 H Plt Count Lymph % (Auto) [place] % (Auto) [place] # Seg Neutrophils % Seg Neuts % (Manual) Lymphocytes % (Manual) 8.0 L Monocytes % (Manual) Nucleated RBC % 2.0 H Seg Neutrophils # Seg Neutrophils # Man 16.4 H Lymphocytes # (Manual) Monocytes # (Manual) 1.2 H Eosinophils # (Manual) 1.2 H Basophils # (Manual) PT INR POC ABG pH 7.463 H POC ABG pCO2 29.7 L POC ABG pO2 134 H Sodium Potassium 5.1 H D Chloride Carbon Dioxide 20 L BUN 40 H Creatinine 5.3 H Glucose 128 H POC Glucose Calcium 7.8 L Phosphorus 1.90 L Magnesium AST ALT Alkaline Phosphatase Troponin T C-Reactive Protein Total Protein Albumin HDL Cholesterol Miscellaneous Test Crossmatch 08/19/17 08/19/17 08/19/17 05:19 07:37 09:52 WBC 45.0 H* RBC 2.50 L Hgb 7.5 L Hct 24.5 L MCV 98 H RDW 18.4 H Plt Count Lymph % (Auto) [place] % (Auto) [place] # Seg Neutrophils % Seg Neuts % (Manual) 81.5 H Lymphocytes % (Manual) 4.0 L Monocytes % (Manual) Nucleated RBC % 1.0 H Seg Neutrophils # Seg Neutrophils # Man 36.7 H Lymphocytes # (Manual) Monocytes # (Manual) Eosinophils # (Manual) Basophils # (Manual) PT INR POC ABG pH POC ABG pCO2 POC ABG pO2 Sodium Potassium Chloride Carbon Dioxide BUN Creatinine Glucose POC Glucose 142 H Calcium Phosphorus Magnesium AST ALT Alkaline Phosphatase Troponin T C-Reactive Protein 34.20 H Total Protein Albumin HDL Cholesterol Miscellaneous Test Crossmatch 08/19/17 08/19/17 08/20/17 11:16 18:12 00:35 WBC RBC Hgb Hct MCV RDW Plt Count Lymph % (Auto) [place] % (Auto) [place] # Seg Neutrophils % Seg Neuts % (Manual) Lymphocytes % (Manual) Monocytes % (Manual) Nucleated RBC % Seg Neutrophils # Seg Neutrophils # Man Lymphocytes # (Manual) Monocytes # (Manual) Eosinophils # (Manual) Basophils # (Manual) PT INR POC ABG pH POC ABG pCO2 POC ABG pO2 Sodium Potassium Chloride Carbon Dioxide BUN Creatinine Glucose POC Glucose 143 H 137 H 164 H Calcium Phosphorus Magnesium AST ALT Alkaline Phosphatase Troponin T C-Reactive Protein Total Protein Albumin HDL Cholesterol Miscellaneous Test Crossmatch 08/20/17 08/20/17 08/20/17 03:20 03:20 04:00 WBC 48.0 H* RBC 2.55 L Hgb 7.6 L Hct 23.4 L MCV RDW 18.4 H Plt Count Lymph % (Auto) [place] % (Auto) [place] # Seg Neutrophils % Seg Neuts % (Manual) 90.0 H Lymphocytes % (Manual) 3.0 L Monocytes % (Manual) Nucleated RBC % Seg Neutrophils # Seg Neutrophils # Man 43.2 H Lymphocytes # (Manual) Monocytes # (Manual) 1.4 H Eosinophils # (Manual) 0.5 H Basophils # (Manual) PT INR POC ABG pH 7.499 H POC ABG pCO2 29.1 L POC ABG pO2 Sodium 135 L Potassium Chloride Carbon Dioxide BUN 28 H Creatinine 4.0 H Glucose 140 H POC Glucose Calcium 8.0 L Phosphorus 1.70 L Magnesium 1.60 L AST ALT Alkaline Phosphatase Troponin T C-Reactive Protein Total Protein Albumin HDL Cholesterol Miscellaneous Test Crossmatch 08/20/17 08/20/17 08/20/17 05:02 12:05 13:12 WBC RBC Hgb Hct MCV RDW Plt Count Lymph % (Auto) [place] % (Auto) [place] # Seg Neutrophils % Seg Neuts % (Manual) Lymphocytes % (Manual) Monocytes % (Manual) Nucleated RBC % Seg Neutrophils # Seg Neutrophils # Man Lymphocytes # (Manual) Monocytes # (Manual) Eosinophils # (Manual) Basophils # (Manual) PT INR POC ABG pH 7.537 H POC ABG pCO2 27.9 L POC ABG pO2 79 L Sodium Potassium Chloride Carbon Dioxide BUN Creatinine Glucose POC Glucose 158 H 203 H Calcium Phosphorus Magnesium AST ALT Alkaline Phosphatase Troponin T C-Reactive Protein Total Protein Albumin HDL Cholesterol Miscellaneous Test Crossmatch 08/20/17 08/21/17 08/21/17 17:13 00:47 03:14 WBC RBC Hgb Hct MCV RDW Plt Count Lymph % (Auto) [place] % (Auto) [place] # Seg Neutrophils % Seg Neuts % (Manual) Lymphocytes % (Manual) Monocytes % (Manual) Nucleated RBC % Seg Neutrophils # Seg Neutrophils # Man Lymphocytes # (Manual) Monocytes # (Manual) Eosinophils # (Manual) Basophils # (Manual) PT INR POC ABG pH 7.481 H POC ABG pCO2 29.6 L POC ABG pO2 Sodium Potassium Chloride Carbon Dioxide BUN Creatinine Glucose POC Glucose 188 H 109 H Calcium Phosphorus Magnesium AST ALT Alkaline Phosphatase Troponin T C-Reactive Protein Total Protein Albumin HDL Cholesterol Miscellaneous Test Crossmatch 08/21/17 08/21/17 08/21/17 05:05 06:50 06:50 WBC 44.7 H* RBC 2.41 L Hgb 7.1 L Hct 22.1 L MCV RDW 18.3 H Plt Count Lymph % (Auto) [place] % (Auto) [place] # Seg Neutrophils % Seg Neuts % (Manual) 89.0 H Lymphocytes % (Manual) 0 L Monocytes % (Manual) Nucleated RBC % 1.0 H Seg Neutrophils # Seg Neutrophils # Man 39.8 H Lymphocytes # (Manual) 0.0 L Monocytes # (Manual) 1.3 H Eosinophils # (Manual) Basophils # (Manual) PT INR POC ABG pH POC ABG pCO2 POC ABG pO2 Sodium 135 L Potassium Chloride Carbon Dioxide BUN 39 H Creatinine 4.4 H Glucose 147 H POC Glucose 166 H Calcium 8.1 L Phosphorus Magnesium AST ALT < 5 L Alkaline Phosphatase 164 H Troponin T C-Reactive Protein Total Protein 4.7 L Albumin 1.4 L HDL Cholesterol Miscellaneous Test Crossmatch 08/21/17 08/21/17 08/21/17 08:00 12:21 17:02 WBC RBC Hgb Hct MCV RDW Plt Count Lymph % (Auto) [place] % (Auto) [place] # Seg Neutrophils % Seg Neuts % (Manual) Lymphocytes % (Manual) Monocytes % (Manual) Nucleated RBC % Seg Neutrophils # Seg Neutrophils # Man Lymphocytes # (Manual) Monocytes # (Manual) Eosinophils # (Manual) Basophils # (Manual) PT INR POC ABG pH POC ABG pCO2 POC ABG pO2 Sodium Potassium Chloride Carbon Dioxide BUN Creatinine Glucose POC Glucose 147 H 135 H Calcium Phosphorus Magnesium AST ALT Alkaline Phosphatase Troponin T C-Reactive Protein Total Protein Albumin HDL Cholesterol Miscellaneous Test Crossmatch See Detail 08/21/17 08/22/17 08/22/17 23:38 03:40 03:40 WBC 42.5 H* RBC 2.88 L Hgb 8.5 L Hct 26.3 L MCV RDW 17.9 H Plt Count Lymph % (Auto) [place] % (Auto) [place] # Seg Neutrophils % Seg Neuts % (Manual) Lymphocytes % (Manual) 5.0 L Monocytes % (Manual) Nucleated RBC % Seg Neutrophils # Seg Neutrophils # Man 19.6 H Lymphocytes # (Manual) Monocytes # (Manual) 2.6 H Eosinophils # (Manual) Basophils # (Manual) PT INR POC ABG pH POC ABG pCO2 POC ABG pO2 Sodium Potassium 3.3 L D Chloride Carbon Dioxide BUN 27 H Creatinine 2.9 H Glucose 144 H POC Glucose 251 H Calcium 8.0 L Phosphorus 2.40 L Magnesium AST ALT Alkaline Phosphatase Troponin T C-Reactive Protein Total Protein Albumin HDL Cholesterol Miscellaneous Test Crossmatch 08/22/17 08/22/17 08/22/17 06:37 11:25 16:25 WBC RBC Hgb Hct MCV RDW Plt Count Lymph % (Auto) [place] % (Auto) [place] # Seg Neutrophils % Seg Neuts % (Manual) Lymphocytes % (Manual) Monocytes % (Manual) Nucleated RBC % Seg Neutrophils # Seg Neutrophils # Man Lymphocytes # (Manual) Monocytes # (Manual) Eosinophils # (Manual) Basophils # (Manual) PT INR POC ABG pH POC ABG pCO2 POC ABG pO2 Sodium Potassium Chloride Carbon Dioxide BUN Creatinine Glucose POC Glucose 152 H 175 H Calcium Phosphorus Magnesium AST ALT Alkaline Phosphatase Troponin T C-Reactive Protein 30.70 H Total Protein Albumin HDL Cholesterol Miscellaneous Test Crossmatch 08/22/17 08/22/17 08/23/17 17:56 23:03 05:36 WBC RBC Hgb Hct MCV RDW Plt Count Lymph % (Auto) [place] % (Auto) [place] # Seg Neutrophils % Seg Neuts % (Manual) Lymphocytes % (Manual) Monocytes % (Manual) Nucleated RBC % Seg Neutrophils # Seg Neutrophils # Man Lymphocytes # (Manual) Monocytes # (Manual) Eosinophils # (Manual) Basophils # (Manual) PT INR POC ABG pH POC ABG pCO2 POC ABG pO2 Sodium Potassium Chloride Carbon Dioxide BUN Creatinine Glucose POC Glucose 232 H 192 H 206 H Calcium Phosphorus Magnesium AST ALT Alkaline Phosphatase Troponin T C-Reactive Protein Total Protein Albumin HDL Cholesterol Miscellaneous Test Crossmatch 08/23/17 08/23/17 08/23/17 08:50 12:14 17:21 WBC RBC Hgb Hct MCV RDW Plt Count Lymph % (Auto) [place] % (Auto) [place] # Seg Neutrophils % Seg Neuts % (Manual) Lymphocytes % (Manual) Monocytes % (Manual) Nucleated RBC % Seg Neutrophils # Seg Neutrophils # Man Lymphocytes # (Manual) Monocytes # (Manual) Eosinophils # (Manual) Basophils # (Manual) PT INR POC ABG pH POC ABG pCO2 POC ABG pO2 Sodium Potassium Chloride 107.1 H Carbon Dioxide BUN 49 H Creatinine 3.3 H Glucose 172 H POC Glucose 238 H 226 H Calcium Phosphorus Magnesium 2.40 H AST ALT Alkaline Phosphatase Troponin T C-Reactive Protein Total Protein Albumin HDL Cholesterol Miscellaneous Test Crossmatch 08/23/17 08/24/17 08/24/17 23:13 04:00 05:06 WBC 34.2 H RBC 2.86 L Hgb 8.4 L Hct 25.9 L MCV RDW 17.9 H Plt Count Lymph % (Auto) [place] % (Auto) [place] # Seg Neutrophils % Seg Neuts % (Manual) 85.0 H Lymphocytes % (Manual) 0.5 L Monocytes % (Manual) Nucleated RBC % 1.0 H Seg Neutrophils # Seg Neutrophils # Man 29.1 H Lymphocytes # (Manual) 0.2 L Monocytes # (Manual) 2.4 H Eosinophils # (Manual) Basophils # (Manual) PT INR POC ABG pH POC ABG pCO2 POC ABG pO2 Sodium Potassium Chloride Carbon Dioxide BUN Creatinine Glucose POC Glucose 183 H 201 H Calcium Phosphorus Magnesium AST ALT Alkaline Phosphatase Troponin T C-Reactive Protein Total Protein Albumin HDL Cholesterol Miscellaneous Test Crossmatch 08/24/17 08/24/17 08/24/17 09:30 12:04 18:04 WBC RBC Hgb Hct MCV RDW Plt Count Lymph % (Auto) [place] % (Auto) [place] # Seg Neutrophils % Seg Neuts % (Manual) Lymphocytes % (Manual) Monocytes % (Manual) Nucleated RBC % Seg Neutrophils # Seg Neutrophils # Man Lymphocytes # (Manual) Monocytes # (Manual) Eosinophils # (Manual) Basophils # (Manual) PT INR POC ABG pH POC ABG pCO2 POC ABG pO2 Sodium Potassium Chloride Carbon Dioxide BUN 46 H Creatinine 2.5 H Glucose 176 H POC Glucose 181 H 189 H Calcium Phosphorus Magnesium AST ALT Alkaline Phosphatase Troponin T C-Reactive Protein Total Protein Albumin HDL Cholesterol Miscellaneous Test Crossmatch 08/24/17 08/25/17 08/25/17 23:05 05:05 07:02 WBC RBC Hgb Hct MCV RDW Plt Count Lymph % (Auto) [place] % (Auto) [place] # Seg Neutrophils % Seg Neuts % (Manual) Lymphocytes % (Manual) Monocytes % (Manual) Nucleated RBC % Seg Neutrophils # Seg Neutrophils # Man Lymphocytes # (Manual) Monocytes # (Manual) Eosinophils # (Manual) Basophils # (Manual) PT INR POC ABG pH POC ABG pCO2 POC ABG pO2 Sodium Potassium Chloride Carbon Dioxide BUN 32 H Creatinine 5.0 H D Glucose 117 H POC Glucose 175 H 190 H Calcium 8.0 L Phosphorus Magnesium AST ALT Alkaline Phosphatase Troponin T C-Reactive Protein Total Protein Albumin HDL Cholesterol Miscellaneous Test Crossmatch 08/25/17 08/26/17 08/26/17 11:53 05:30 05:30 WBC 33.5 H RBC 2.47 L Hgb 7.3 L Hct 23.0 L MCV RDW 21.3 H Plt Count Lymph % (Auto) [place] % (Auto) [place] # Seg Neutrophils % Seg Neuts % (Manual) 92.0 H Lymphocytes % (Manual) 1.0 L Monocytes % (Manual) Nucleated RBC % Seg Neutrophils # Seg Neutrophils # Man 30.8 H Lymphocytes # (Manual) 0.3 L Monocytes # (Manual) Eosinophils # (Manual) Basophils # (Manual) PT INR POC ABG pH POC ABG pCO2 POC ABG pO2 Sodium Potassium 5.2 H Chloride Carbon Dioxide BUN 80 H Creatinine 3.4 H Glucose 193 H POC Glucose 191 H Calcium 8.3 L Phosphorus 6.80 H D Magnesium 2.60 H AST 135 H ALT Alkaline Phosphatase 211 H Troponin T C-Reactive Protein Total Protein 4.8 L Albumin 2.0 L HDL Cholesterol Miscellaneous Test Crossmatch 08/26/17 08/26/17 08/27/17 06:44 13:26 01:08 WBC RBC Hgb Hct MCV RDW Plt Count Lymph % (Auto) [place] % (Auto) [place] # Seg Neutrophils % Seg Neuts % (Manual) Lymphocytes % (Manual) Monocytes % (Manual) Nucleated RBC % Seg Neutrophils # Seg Neutrophils # Man Lymphocytes # (Manual) Monocytes # (Manual) Eosinophils # (Manual) Basophils # (Manual) PT INR POC ABG pH POC ABG pCO2 POC ABG pO2 Sodium Potassium Chloride Carbon Dioxide BUN Creatinine Glucose POC Glucose 232 H 207 H 146 H Calcium Phosphorus Magnesium AST ALT Alkaline Phosphatase Troponin T C-Reactive Protein Total Protein Albumin HDL Cholesterol Miscellaneous Test Crossmatch 08/27/17 08/27/17 08/27/17 06:20 06:20 07:01 WBC 35.0 H RBC 2.75 L Hgb 8.4 L Hct 25.1 L MCV RDW 21.8 H Plt Count Lymph % (Auto) [place] % (Auto) [place] # Seg Neutrophils % Seg Neuts % (Manual) Lymphocytes % (Manual) 4.5 L Monocytes % (Manual) Nucleated RBC % Seg Neutrophils # Seg Neutrophils # Man 31.9 H Lymphocytes # (Manual) Monocytes # (Manual) 1.2 H Eosinophils # (Manual) Basophils # (Manual) PT INR POC ABG pH POC ABG pCO2 POC ABG pO2 Sodium Potassium Chloride Carbon Dioxide BUN 61 H Creatinine 2.6 H Glucose 184 H POC Glucose 165 H Calcium Phosphorus 4.90 H D Magnesium AST ALT Alkaline Phosphatase Troponin T C-Reactive Protein Total Protein Albumin HDL Cholesterol Miscellaneous Test Crossmatch 08/27/17 08/27/17 09:17 12:52 WBC RBC Hgb Hct MCV RDW Plt Count Lymph % (Auto) [place] % (Auto) [place] # Seg Neutrophils % Seg Neuts % (Manual) Lymphocytes % (Manual) Monocytes % (Manual) Nucleated RBC % Seg Neutrophils # Seg Neutrophils # Man Lymphocytes # (Manual) Monocytes # (Manual) Eosinophils # (Manual) Basophils # (Manual) PT INR POC ABG pH POC ABG pCO2 POC ABG pO2 Sodium Potassium Chloride Carbon Dioxide BUN Creatinine Glucose POC Glucose 198 H 218 H Calcium Phosphorus Magnesium AST ALT Alkaline Phosphatase Troponin T C-Reactive Protein Total Protein Albumin HDL Cholesterol Miscellaneous Test Crossmatch Chest x-ray: report reviewed, image reviewed
--- NOTE | 2017-08-27 15:33 | Progress Note ---
Assessment and Plan Assessment and plan: Septic shock. - Resolved Sepsis secondary to peritonitis /catheter related complex UTI present on admission - Patient completed 14 days of meropenem, 10 out of 14 days of Diflucan Acute hypoxic respiratory failure - s/p extubation - On [place] oxygen End-stage renal disease - PD catheter removed due to infection - Patient is a femoral Vas-Cath, will be changed to PermCath for hemodialysis Anemia of chronic illness - Post transfusion of one unit of blood Hypophosphatemia/hypomagnesemia - Due to see Dang, corrected Urinary retention - Urology consult appreciated Bowel obstruction / status post exploratory lap with removal of PD catheter as a cause of obstruction. Peritonitis /small bowel obstruction , s/p G-tube placement, abdominal washout , removal of PD catheter - I have discussed with the surgeon and the plan is to discharge her follow-up, we'll follow her recommendation Ulcerative esophagitis/small gastric ulcer on EGD. Continue current medications Severe Protein calorie malnutrition., Continue TPN and supportive care Sacral and lower extremity wound - continue wound care Leukocytosis - Hematology is following --DVT prophylaxis; SCDs, add heparin renal dose --Physical therapy occupational therapy evaluation and treat Plan of care discussed with the patient and her nurse Disposition - We'll discharge her to LTAC in the next 24-48 hours based on the recommendation of the surgeon. History Interval history: Patient was seen and evaluated this morning, patient didn't have any complaints. No fever over night. Hospitalist Physical - Physical exam Narrative exam: Not in cardiopulmonary distress. The patient is obese. Vital signs as documented. Head exam is unremarkable. No scleral icterus . Neck is without jugular venous distension, thyromegaly, or carotid bruits. Lungs are clear to auscultation. Cardiac exam reveals regular rate and Rhythm. First and second heart sounds normal. No murmurs, rubs or gallops. Abdominal exam reveals clean surgical dressing non-tender. 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 Paraparesis. - Constitutional Vitals: Temp Pulse Resp BP Pulse Ox 98.8 F 100 H 24 116/70 99 08/27/17 09:00 08/27/17 04:15 08/27/17 09:00 08/27/17 09:00 08/27/17 15:19 General appearance: Present: mild distress, well-nourished Results - Labs CBC & Chem 7: 08/27/17 06:20 08/27/17 06:20 Labs: Laboratory Last Values WBC 35.0 K/mm3 (4.5-11.0) H 08/27/17 06:20 RBC 2.75 M/mm3 (3.65-5.03) L 08/27/17 06:20 Hgb 8.4 gm/dl (10.1-14.3) L 08/27/17 06:20 Hct 25.1 % (30.3-42.9) L 08/27/17 06:20 MCV 91 fl (79-97) 08/27/17 06:20 MCH 31 pg (28-32) 08/27/17 06:20 MCHC 33 % (30-34) 08/27/17 06:20 RDW 21.8 % (13.2-15.2) H 08/27/17 06:20 Plt Count 421 K/mm3 (140-440) 08/27/17 06:20 Lymph % (Auto) Rib Bender 08/19/17 07:37 [place] % (Auto) Rib Bender 08/19/17 07:37 Eos % (Auto) Rib Bender 08/19/17 07:37 Baso % (Auto) Rib Bender 08/19/17 07:37 Lymph # Rib Bender 08/19/17 07:37 [place] # Rib Bender 08/19/17 07:37 Eos # Rib Bender 08/19/17 07:37 Baso # Rib Bender 08/19/17 07:37 Add Manual Diff Complete 08/27/17 06:20 Total Counted 200 08/27/17 06:20 Seg Neutrophils % [place] 08/26/17 05:30 Seg Neuts % (Manual) 92.0 % (40.0-70.0) H 08/26/17 05:30 Band Neutrophils % 1.0 % 08/27/17 06:20 Lymphocytes % (Manual) 4.5 % (13.4-35.0) L 08/27/17 06:20 Reactive Lymphs % (Man) 0 % 08/27/17 06:20 Monocytes % (Manual) 3.5 % (0.0-7.3) 08/27/17 06:20 Eosinophils % (Manual) 0 % (0.0-4.3) 08/26/17 05:30 Basophils % (Manual) 0 % (0.0-1.8) 08/26/17 05:30 Metamyelocytes % 0 % 08/27/17 06:20 Myelocytes % 0 % 08/27/17 06:20 Promyelocytes % 0 % 08/27/17 06:20 Blast Cells % 0 % 08/27/17 06:20 Nucleated RBC % 0.5 % (0.0-0.9) 08/27/17 06:20 Seg Neutrophils # Rib B[place] 08/19/17 07:37 Seg Neutrophils # Man 31.9 K/mm3 (1.8-7.7) H 08/27/17 06:20 Band Neutrophils # 0.4 K/mm3 08/27/17 06:20 Lymphocytes # (Manual) 1.6 K/mm3 (1.2-5.4) 08/27/17 06:20 Abs React Lymphs (Man) 0.0 K/mm3 08/27/17 06:20 Monocytes # (Manual) 1.2 K/mm3 (0.0-0.8) H 08/27/17 06:20 Eosinophils # (Manual) 0.0 K/mm3 (0.0-0.4) 08/27/17 06:20 Basophils # (Manual) 0.0 K/mm3 (0.0-0.1) 08/27/17 06:20 Metamyelocytes # 0.0 K/mm3 08/27/17 06:20 Myelocytes # 0.0 K/mm3 08/27/17 06:20 Promyelocytes # 0.0 K/mm3 08/27/17 06:20 Blast Cells # 0.0 K/mm3 08/27/17 06:20 WBC Morphology Not Reportable 08/27/17 06:20 Hypersegmented Neuts Not Reportable 08/27/17 06:20 Hyposegmented Neuts Not Reportable 08/27/17 06:20 Hypogranular Neuts Not Reportable 08/27/17 06:20 Smudge Cells Not Reportable 08/27/17 06:20 Toxic Granulation Not Reportable 08/27/17 06:20 Toxic Vacuolation Not Reportable 08/27/17 06:20 Dohle Bodies Not Reportable 08/27/17 06:20 Pelger-Huet Anomaly Not Reportable 08/27/17 06:20 Ariel Rods Not Reportable 08/27/17 06:20 Platelet Estimate Appears normal 08/27/17 06:20 Clumped Platelets Not Reportable 08/27/17 06:20 Plt Clumps, EDTA Not Reportable 08/27/17 06:20 Large Platelets Not Reportable 08/27/17 06:20 Giant Platelets Not Reportable 08/27/17 06:20 Platelet Satelliting Not Reportable 08/27/17 06:20 Plt Morphology Comment Not Reportable 08/27/17 06:20 RBC Morphology Not Reportable 08/27/17 06:20 Dimorphic RBCs Not Reportable 08/27/17 06:20 Polychromasia Few 08/27/17 06:20 Hypochromasia Not Reportable 08/27/17 06:20 Poikilocytosis Not Reportable 08/27/17 06:20 Anisocytosis 1+ 08/27/17 06:20 Microcytosis Not Reportable 08/27/17 06:20 Macrocytosis Few 08/27/17 06:20 Spherocytes Not Reportable 08/27/17 06:20 Pappenheimer Bodies Not Reportable 08/27/17 06:20 Sickle Cells Not Reportable 08/27/17 06:20 Target Cells 1+ 08/27/17 06:20 Tear Drop Cells Not Reportable 08/27/17 06:20 Ovalocytes Not Reportable 08/27/17 06:20 Stomatocytes Few 08/20/17 03:20 Helmet Cells Not Reportable 08/27/17 06:20 [place] Bodies Not Reportable 08/27/17 06:20 [place] Rings Not Reportable 08/27/17 06:20 Yusuf Cells Not Reportable 08/27/17 06:20 Bite Cells Not Reportable 08/27/17 06:20 Crenated Cell Not Reportable 08/27/17 06:20 Elliptocytes Not Reportable 08/27/17 06:20 Acanthocytes (Spur) Not Reportable 08/27/17 06:20 Rouleaux Not Reportable 08/27/17 06:20 Hemoglobin C Crystals Not Reportable 08/27/17 06:20 Schistocytes Not Reportable 08/27/17 06:20 Malaria parasites Not Reportable 08/27/17 06:20 Jovanni Bodies Not Reportable 08/27/17 06:20 Hem Pathologist Commnt No 08/27/17 06:20 PT 16.0 Sec. (12.2-14.9) H 08/17/17 11:20 INR 1.29 (0.87-1.13) H 08/17/17 11:20 APTT 35.5 Sec. (24.2-36.6) 08/12/17 05:50 POC ABG pH 7.481 (7.35-7.45) H 08/21/17 03:14 POC ABG pCO2 29.6 (35-45) L 08/21/17 03:14 POC ABG pO2 104 (80-105) 08/21/17 03:14 POC ABG HCO3 22.1 08/21/17 03:14 POC ABG Total CO2 23 08/21/17 03:14 POC ABG O2 Sat 98 08/21/17 03:14 POC ABG Base Excess -1 08/21/17 03:14 VBG pH 7.462 (7.320-7.420) H 08/08/17 14:52 FiO2 30 % 08/21/17 03:14 Sodium 140 mmol/L (137-145) 08/27/17 06:20 Potassium 4.9 mmol/L (3.6-5.0) 08/27/17 06:20 Chloride 99.4 mmol/L (98-107) 08/27/17 06:20 Carbon Dioxide 25 mmol/L (22-30) 08/27/17 06:20 Anion Gap 21 mmol/L 08/27/17 06:20 BUN 61 mg/dL (7-17) H 08/27/17 06:20 Creatinine 2.6 mg/dL (0.7-1.2) H 08/27/17 06:20 Estimated GFR 23 ml/min 08/27/17 06:20 BUN/Creatinine Ratio 23 % 08/27/17 06:20 Glucose 184 mg/dL (65-100) H 08/27/17 06:20 POC Glucose 218 (70-105) H 08/27/17 12:52 Lactic Acid 1.60 mmol/L (0.7-2.0) 08/17/17 11:20 Calcium 8.5 mg/dL (8.4-10.2) 08/27/17 06:20 Phosphorus 4.90 mg/dL (2.5-4.5) H D 08/27/17 06:20 Magnesium 2.20 mg/dL (1.7-2.3) 08/27/17 06:20 Total Bilirubin 0.50 mg/dL (0.1-1.2) 08/26/17 05:30 Direct Bilirubin 0.2 mg/dL (0-0.2) 08/08/17 14:11 Indirect Bilirubin 0.3 mg/dL 08/08/17 14:11 AST 135 units/L (5-40) H 08/26/17 05:30 ALT 49 units/L (7-56) 08/26/17 05:30 Alkaline Phosphatase 211 units/L (35-129) H 08/26/17 05:30 Ammonia 25.0 umol/L (25-60) 08/08/17 14:52 Troponin T 0.132 ng/mL (0.00-0.029) H* 08/09/17 13:25 C-Reactive Protein 30.70 mg/dL (0.00-1.30) H 08/22/17 16:25 NT-Pro-B Natriuret Pep 6156 pg/mL (0-900) H 08/08/17 14:11 Total Protein 4.8 g/dL (6.3-8.2) L 08/26/17 05:30 Albumin 2.0 g/dL (3.9-5) L 08/26/17 05:30 Albumin/Globulin Ratio 0.7 % 08/26/17 05:30 Triglycerides 62 mg/dL (2-149) 08/08/17 21:23 Cholesterol 91 mg/dL (50-199) 08/08/17 21:23 LDL Cholesterol Direct 53 mg/dL (50-130) 08/08/17 21:23 HDL Cholesterol 26 mg/dL (40-59) L 08/08/17 21:23 Cholesterol/HDL Ratio 3.50 % 08/08/17 21:23 Amylase 45 units/L (27-131) 08/16/17 09:50 Lipase 34 units/L (13-60) 08/16/17 09:50 TSH 6.580 mlU/mL (0.270-4.200) H 08/08/17 14:22 Free T4 1.46 ng/dL (0.76-1.46) 08/08/17 14:22 Total Cortisol 30.1 mcg/dL () 08/13/17 06:14 Urine Color Yellow (Yellow) 08/08/17 20:15 Urine Turbidity Turbid (Clear) 08/08/17 20:15 Urine pH 8.0 (5.0-7.0) H 08/08/17 20:15 Ur Specific [place] 1.015 (1.003-1.030) 08/08/17 20:15 Urine Protein 100 mg/dl mg/dL (Negative) 08/08/17 20:15 Urine Glucose (UA) Neg mg/dL (Negative) 08/08/17 20:15 Urine Ketones Neg mg/dL (Negative) 08/08/17 20:15 Urine Blood Mod (Negative) 08/08/17 20:15 Urine Nitrite Neg (Negative) 08/08/17 20:15 Urine Bilirubin Neg (Negative) 08/08/17 20:15 Urine Urobilinogen < 2.0 mg/dL (<2.0) 08/08/17 20:15 Ur Leukocyte Esterase Lg (Negative) 08/08/17 20:15 Urine WBC (Auto) 24.0 /HPF (0.0-6.0) H 08/08/17 20:15 Urine RBC (Auto) 3.0 /HPF (0.0-6.0) 08/08/17 20:15 U Epithel Cells (Auto) 3.0 /HPF (0-13.0) 08/08/17 20:15 Urine Bacteria (Auto) 4+ /HPF (Negative) 08/08/17 20:15 Urine Mucus 3+ /HPF 08/08/17 20:15 Fluid Type Peritoneal 08/08/17 18:18 Fluid Color Straw 08/08/17 18:18 Fluid Appearance Clear 08/08/17 18:18 Fluid pH 7.74 08/08/17 18:18 Fluid WBC 4 /mm3 08/08/17 18:18 Fluid RBC 1 /mm3 08/08/17 18:18 Fluid Seg Neutrophils 12 % 08/08/17 18:18 Fluid Lymphocytes 0 % 08/08/17 18:18 Fluid Reactive Lymphs 0 % 08/08/17 18:18 Fluid Monocytes 1 % 08/08/17 18:18 Fluid Eosinophils 0 % 08/08/17 18:18 Fluid Basophils 0 % 08/08/17 18:18 Fluid Glucose 315 mg/dL (40-70) H 08/08/17 18:18 Random Vancomycin 19.5 ug/mL (0-40.0) 08/22/17 03:40 Hep Bs Antigen Non-reactive (Negative) 08/22/17 03:40 Hepatitis C Antibody Non-reactive (NonReactive) 08/22/17 03:40 Miscellaneous Test Flexitest 1 H 08/17/17 11:20 Blood Type O POSITIVE 08/21/17 08:00 Antibody Screen Negative 08/21/17 08:00 Crossmatch See Detail 08/21/17 08:00
[2017-08-27] MEDS ORDERED: TPN ADULT 1,800 ML IV SCH (20:00)
[2017-08-27] MEDS ORDERED: NACL 0.9% 100 ML IV PRN (20:56)
--- NOTE | 2017-08-27 23:06 | Progress Note ---
Assessment and Plan - Patient Problems (1) Leukocytosis Current Visit: Yes Status: Acute Qualifiers: Leukocytosis type: L Plan to address problem: See notes above. make sure that PD access is clean also. see notes. Probably infection from the infected PD catheter. improving. (2) Anemia Current Visit: Yes Status: Acute Qualifiers: Anemia type: A Iron deficiency anemia type: I Vitamin B12 deficiency anemia type: V Folate deficiency anemia type: F Bone marrow failure anemia type: B Hemolytic anemia type: H Other causes of anemia: O Chronic kidney disease stage: C Plan to address problem: see notes , monitor labs,. see notes above. continue to monitor labs with you. Subjective Date of service: 08/27/17 Principal diagnosis: /anemia, poor oral intake. Interval history: Patient seen today/examined, labs reviewed, case d/w she, and family.complaints of abdominal pain. Patient resting in bed in the ICU, post vascular procedure. labs reviewed, Reactive thrombocytosis, anemia of CD, leukocytosis from infection vs inflamatory process. Patient seen/examined, in bed in the ICU, on the vent post surgery.Labs reviewed , notes reviewed. will continue to monitor labs/patient with you. Replacement transfusion, if /when indicated. patient seen/examined, SBP75, on pressors., lethargic, on the vent, labs reviewed, wbc 39,000 Patient seen/examined, case reviewed, d/w her sister at the bed side. Patient seen/examined, labs reviewed, notes reviewed. severe septic shock from infected PD catheter The high wbc is all infection related. H?H low, and may get replacement transfusion with the next HD. Prognosis remain quite poor. Patient seen/examined, extubated, now on V Mask. labs reviewed. patient seen/examined, resting in bed, still some what lethargic . labs reviewed. Patient seen/examined, resting in bed., some difficulty with breathing./ lethargic. patient seen/examined, resting in bed, looked much better labs reviewed, and fair over all. Patient seen/examined, resting in bed, labs reviewed, case d/w her. Patient seen/examined, resting in bed on BIPAP., labs reviewed. patient seen/examined, resting in bed, on Bipap.labs reviewed, fairly stable. Objective - Constitutional Vitals: Vital Signs - 12hr 08/27/17 08/27/17 08/27/17 15:19 20:08 20:20 Temperature 97.5 F L 100.4 F H Pulse Rate [ 110 H 102 H Right] Respiratory 18 18 Rate Blood Pressure 141/53 165/99 O2 Sat by Pulse 99 100 98 Oximetry General appearance: Present: mild distress, well-nourished - EENT Eyes: PERRL, EOM intact ENT: hearing intact, clear oral mucosa Ears: bilateral: normal - Neck Neck: supple, normal ROM - Respiratory Respiratory: bilateral: diminished, rhonchi - Breasts Breasts: deferred - Cardiovascular Rhythm: regular Heart Sounds: Present: S1 & S2. Absent: gallop, rub Extremities: pulses intact, No edema, normal color, Full ROM - Gastrointestinal General gastrointestinal: Present: soft, non-tender, non-distended, normal bowel sounds Rectal Exam: deferred - Genitourinary Female genitourinary: deferred - Integumentary Integumentary: clear, warm, dry - Musculoskeletal Musculoskeletal: 1, strength equal bilaterally - Neurologic Neurologic: moves all extremities - Psychiatric Psychiatric: appropriate mood/affect - Labs CBC & Chem 7: 08/27/17 06:20 08/27/17 06:20 Labs: Abnormal lab results 08/27/17 08/27/17 08/27/17 Range/Units 01:08 06:20 06:20 WBC 35.0 H (4.5-11.0) K/mm3 RBC 2.75 L (3.65-5.03) M/mm3 Hgb 8.4 L (10.1-14.3) gm/dl Hct 25.1 L (30.3-42.9) % RDW 21.8 H (13.2-15.2) % Lymphocytes % (Manual) 4.5 L (13.4-35.0) % Seg Neutrophils # Man 31.9 H (1.8-7.7) K/mm3 Monocytes # (Manual) 1.2 H (0.0-0.8) K/mm3 BUN 61 H (7-17) mg/dL Creatinine 2.6 H (0.7-1.2) mg/dL Glucose 184 H (65-100) mg/dL POC Glucose 146 H (70-105) Phosphorus 4.90 H D (2.5-4.5) mg/dL 1008/27/17 08/27/17 Range/Units 07:01 09:17 12:52 WBC (4.5-11.0) K/mm3 RBC (3.65-5.03) M/mm3 Hgb (10.1-14.3) gm/dl Hct (30.3-42.9) % RDW (13.2-15.2) % Lymphocytes % (Manual) (13.4-35.0) % Seg Neutrophils # Man (1.8-7.7) K/mm3 Monocytes # (Manual) (0.0-0.8) K/mm3 BUN (7-17) mg/dL Creatinine (0.7-1.2) mg/dL Glucose (65-100) mg/dL POC Glucose 165 H 198 H 218 H (70-105) Phosphorus (2.5-4.5) mg/dL 08/27/17 Range/Units 17:27 WBC (4.5-11.0) K/mm3 RBC (3.65-5.03) M/mm3 Hgb (10.1-14.3) gm/dl Hct (30.3-42.9) % RDW (13.2-15.2) % Lymphocytes % (Manual) (13.4-35.0) % Seg Neutrophils # Man (1.8-7.7) K/mm3 Monocytes # (Manual) (0.0-0.8) K/mm3 BUN (7-17) mg/dL Creatinine (0.7-1.2) mg/dL Glucose (65-100) mg/dL POC Glucose 151 H (70-105) Phosphorus (2.5-4.5) mg/dL
[2017-08-28] MEDS: DILAUDID IV PRN ×2 (03:22→09:52)
[2017-08-28] MEDS: HEPARIN SUB-Q SCH (06:54)
[2017-08-28 07:33] LABS: Hematocrit 20.9 % (30.3-42.9); Hemoglobin 6.8 gm/dl (10.1-14.3); Mean Corpuscular HGB Conc 33 % (30-34); Mean Corpuscular Hemoglobin 30 pg (28-32); Mean Corpuscular Volume 93 fl (79-97); Platelet Count 384 K/mm3 (140-440); Red Blood Count 2.26 M/mm3 (3.65-5.03)
[2017-08-28 07:37] LABS: Red Cell Distribution Width 21.7 % (13.2-15.2); White Blood Count 31.1 K/mm3 (4.5-11.0)
[2017-08-28 07:50] LABS: Calcium 8.4 mg/dL (8.4-10.2); Chloride 101.1 mmol/L (98-107); Magnesium 2.1 mg/dL (1.7-2.3); Phosphorous 4.9 mg/dL (2.5-4.5); Potassium 4.9 mmol/L (3.6-5.0)
--- NOTE | 2017-08-28 08:21 | XRay Report ---
AP CHEST :08/27/17 CLINICAL: Shortness of breath. COMPARISON:08/21/17 FINDINGS: An endotracheal tube has been removed since the prior exam. A right IJ catheter tip remains in the SVC. A nasogastric tube tip is below the diaphragm and not imaged. Stable cardiomegaly and prominence of the central pulmonary vessels . Lungs are relatively clear No pneumothorax. IMPRESSION: Cardiomegaly and mild central vascular congestion.No congestive heart failure or pneumonia.
[2017-08-28 08:55] LABS: Anisocytosis 1+; Basophils % (Manual) 0 % (0.0-1.8); Blastocytes % (Manual) 0 %; Eosinophils % (Manual) 0 % (0.0-4.3)
[2017-08-28 08:56] LABS: Diff Status Complete; Spherocytes Rare; Target Cells 1+
--- NOTE | 2017-08-28 09:00 | Progress Note ---
Assessment and Plan - Patient Problems (1) ESRD (end stage renal disease) on dialysis Current Visit: Yes Status: Acute Plan to address problem: Continue HD, MWF schedule. Patient is fluid overloaded. HD today with 3 Lts of UF as tolerated. Patient is on TPN. (2) Hyperkalemia Current Visit: Yes Status: Acute Plan to address problem: K level is better. Hemodialysis today. (3) Anemia Current Visit: No Status: Chronic Qualifiers: Anemia type: due to chronic kidney disease Iron deficiency anemia type: I Vitamin B12 deficiency anemia type: V Folate deficiency anemia type: F Bone marrow failure anemia type: B Hemolytic anemia type: H Other causes of anemia: O Chronic kidney disease stage: on chronic dialysis Qualified Code(s ): N18.6 - End stage renal disease; D63.1 - Anemia in chronic kidney disease; Z99.2 - Dependence on renal dialysis Plan to address problem: Epogen. One unit of PRBC today. (4) Hypotension Current Visit: Yes Status: Chronic Qualifiers: Hypotension type: H Trimester: T Plan to address problem: Off pressors. (5) Leukocytosis Current Visit: Yes Status: Acute Qualifiers: Leukocytosis type: unspecified Qualified Code(s): D72.829 - Elevated white blood cell count, unspecified (6) Acute respiratory failure with hypoxemia Current Visit: Yes Status: Acute Plan to address problem: S/p extubated. Followed by Pulmonary. (7) Sepsis Current Visit: Yes Status: Acute Qualifiers: Sepsis type: S Subjective Date of service: 08/28/17 Principal diagnosis: /anemia, poor oral intake. Interval history: Patient was seen and examined at the bedside. Per daughter she has difficulty in breathing. Objective - Vital Signs Vital signs: Vital Signs - 12hr 08/27/17 08/28/17 08/28/17 22:00 00:23 04:45 Temperature 99.2 F 98.7 F Pulse Rate 102 H Pulse Rate [ 102 H Apical] Pulse Rate [ 103 H 104 H Right] Respiratory 22 22 22 Rate Blood Pressure 147/80 106/59 O2 Sat by Pulse 99 100 100 Oximetry - General Appearance General appearance: well-developed, appears stated age, obese, other (O2 by VM, mild tachypnea) EENT: ATNC, PERRL Neck: supple Respiratory: Present: Clear to Ascultation Cardiology: regular, S1S2, no murmurs Gastrointestinal: normoactive bowel sounds, no tenderness, obese Integumentary: no rash Neurologic: other (non-verbal, not following command) Musculoskeletal: other (2+ edema of both LEs noted, right groin hemodialysis catheter noted) - Lab 08/28/17 06:53 08/28/17 06:53 Most recent lab results Calcium 8.4 mg/dL (8.4-10.2) 08/28/17 06:53 Phosphorus 4.90 mg/dL (2.5-4.5) H 08/28/17 06:53 Magnesium 2.10 mg/dL (1.7-2.3) 08/28/17 06:53
[2017-08-28] MEDS: DIFLUCAN 200 MG/100 ML BAG IV SCH (09:58)
[2017-08-28] MEDS ORDERED: NACL 0.9% 500 ML 500 ML IV NR ×2 (10:00→14:00)
--- NOTE | 2017-08-28 10:02 | Progress Note ---
Assessment and Plan Assessment: 1) Sepsis with septic shock: leukocytosis slowly going down; source bowel obstruction / suspect ?gastric perforation. -CRP=28-->32-->34 -->30 -procalcitonin=1.3 2) Bowel obstruction / suspect ?gastric perforation ? peritonitis -S/P Exlap, G-tube placement, EGD, abdominal washout and removal of PD -OR findings - bowel obstruction due to entanglement of PD cath, abscess cavity in LUQ and ? suspect perforation of unclear location -Repeat CT - improved ascitis 3) CA-UTI: chronic ivan exchanged every 4 weeks and ureteral stents in place which are exchanged every 6 months ? urine cultures still pending should r/o MDR bacteria 4) Paraplegia 5) ESRD on PD - no evidence of peritonitis, wbc count 2. GL[employer]ING [employer] and Diphteroids on peritoneal fluid likely contaminants. 6) Recent pancreatitis 7) Penicillin allergy-has taken keflex w/o problems Plan: -monitor surgical wound and leukocytosis off meropenem -recheck CRP -continue fluconazole day 12 of 14 -remove femoral cath and a perm HD cath to be placed today -please discuss with urology need for "chronic ivan in place", can ivan be removed since she has little urine output? Thank you Dr Davis for your consultation, will follow up with you. Ramya Lang MD Infectious Diseases Specialist [facility] ([facility]) M [phone] Subjective Date of service: 08/28/17 Principal diagnosis: /anemia, poor oral intake. Interval history: Alert, talking, on NC O2, tmax 100.4 Microbiology: Blood cultures: 08/08 neg 08/12 neg 08/16 neg 08/20 neg Urine cultures: 08/08 10-100K skin grace Respiratory cultures: Wound cultures: 10/ Gram GNRs Stool cultures: Other: 08/08 peritoneal fluid + GLUING [employer]/Diphteroids Current Antimicrobials: 08/16 fluconazole Previous Antimicrobials: 08/10 levaquin 08/16 vancomycin 08/13 meropenem Objective - Exam Narrative Exam: General appearance: alert on CPAP Eyes: anicteric sclerae, moist conjunctivae; no lid-lag; PERRLA HENT: Atraumatic; limited OP Neck: Trachea midline; supple, no thyromegaly or lymphadenopathy Lungs: coarse BS moreno CV: RRR, no murmurs Abdomen: soft, midline surgical wound with kelli and mild serous drainage a drain covered with surg dressings Gtube Extremities: + peripheral edema + leg ulcer Skin: Normal temperature, turgor and texture; no rash, ulcers or subcutaneous nodules Psych: stable. Neuro: alert talking moving all extremities Lines: Right vascath femoral / Right IJ Nair 08/16 - Constitutional Vitals: Vital Signs Temp Pulse Resp BP Pulse Ox 98.7 F 104 H 22 106/59 100 08/28/17 04:45 08/28/17 04:45 08/28/17 04:45 08/28/17 04:45 08/28/17 04:45 Temperature -Last 24 Hours Temperature 98.7 F Temperature 99.2 F Temperature 100.4 F Temperature 97.5 F - Labs CBC & Chem 7: 08/28/17 06:53 08/28/17 06:53 Labs: Abnormal lab results 08/27/17 08/27/17 08/28/17 Range/Units 12:52 17:27 02:13 WBC (4.5-11.0) K/mm3 RBC (3.65-5.03) M/mm3 Hgb (10.1-14.3) gm/dl Hct (30.3-42.9) % RDW (13.2-15.2) % Seg Neuts % (Manual) (40.0-70.0) % Lymphocytes % (Manual) (13.4-35.0) % Seg Neutrophils # Man (1.8-7.7) K/mm3 BUN (7-17) mg/dL Creatinine (0.7-1.2) mg/dL Glucose (65-100) mg/dL POC Glucose 218 H 151 H 155 H (70-105) Phosphorus (2.5-4.5) mg/dL 08/28/17 08/28/17 08/28/17 Range/Units 06:46 06:53 06:53 WBC 31.1 H (4.5-11.0) K/mm3 RBC 2.26 L (3.65-5.03) M/mm3 Hgb 6.8 L (10.1-14.3) gm/dl Hct 20.9 L (30.3-42.9) % RDW 21.7 H (13.2-15.2) % Seg Neuts % (Manual) 83.0 H (40.0-70.0) % Lymphocytes % (Manual) 4.0 L (13.4-35.0) % Seg Neutrophils # Man 25.8 H (1.8-7.7) K/mm3 BUN 81 H (7-17) mg/dL Creatinine 3.4 H (0.7-1.2) mg/dL Glucose 218 H (65-100) mg/dL POC Glucose 230 H (70-105) Phosphorus 4.90 H (2.5-4.5) mg/dL
[2017-08-28] MEDS: PROTONIX IV SCH (10:10)
--- NOTE | 2017-08-28 12:08 | Cat Scan Report ---
CT angiography of the abdomen and pelvis with IV and oral contrast. History: GI bleeding, abscess. Findings: Comparison is made to the previous study on August 19, 2017. There is persistent bibasilar atelectasis. A G-tube and peritoneal dialysis catheter are noted, unchanged. There is a small to moderate volume of ascites is also stable. The liver and spleen are unremarkable. The pancreas is normal. Postsurgical changes are again noted in the stomach. Renal atrophy is present. Bilateral ureteral stents are again noted in satisfactory position. A right femoral venous catheter is noted. The abdominal aorta is normal in caliber with no evidence of dissection. The celiac and superior mesenteric arteries appear normal. The left renal artery is patent. The right renal artery is not patent. The MICHELLE is not definitely identified. There is no extravasation of intravenous contrast material. No evidence of focal abscess is seen. Impression: No significant overall changes compared to the study on August 19, 2017. Stable ascites is present. Various support tubes are unchanged. 2. Bibasilar subsegmental atelectasis. 3. Non-patency of the right renal artery. The MICHELLE is not identified as well.
[2017-08-28] MEDS ORDERED: HEPARIN/NS 5000 UNIT/500ML(CATH LAB) 0 ML IR ONE (12:21)
[2017-08-28] MEDS ORDERED: XYLOCAINE 2% INFILTRATI ONE (12:21)
[2017-08-28] MEDS ORDERED: SUBLIMAZE ONE (12:21)
[2017-08-28] MEDS ORDERED: VERSED ONE (12:21)
[2017-08-28] MEDS ORDERED: HEPARIN 10,000 UNITS/10 ML ONE (12:22)
--- NOTE | 2017-08-28 13:08 | Progress Note ---
Assessment and Plan 62 y.o. F s/p ex-lap, lysis of adhesions, G tube placement, NIKITA drain placement: POD 10 Pt found lethargic today with melena and old blood clot evac from midline wound. NIKITA appears to be old blood. No active bleeding noted in midline incision. Rec. pt to have rpt labs including coags to assess for clotting dysfunction. Rec. holding heparin subq. Rec. Blood transfusion. If continued bleeding DDAVP could be beneficial in a renal pt. Source: unlikely upper GI since G tube is draining bilious fluid. CT abd pelvis angio: no blush of contrast. Rec. transfer to icu for closer monitoring. Dr. Chamorro updated the daughter via telephone regarding her mother's change in status. gastric perforation: poor overall nutritional status making the defect difficult to re-seal despite intra-luminal decompression and external drainage. Nikita now brown/serous. Record NIKITA output and G tube output in order to assess if she is adequately being decompressed. . Monitor output and color. Nursing to strip NIKITA during shift. Likely prolonged healing time of small gastric perforation. Keep NPO. No manipulation of NG or G or NIKITA. Keep NG to low intermit. wall sunction. No manipulation. No flushes. No medications Prolonged healing anticipated due to poor nutrition and steroids. Will not start vit A supplementation due to possible vit A toxicity from supplementation due to renal failure. -continue PPI ID: Covering Gut grace 2/2 perforation: merrom -completed. diflucan - per ID Leukocytosis improving sepsis: likely due intra-abdominal process. Weaned off levo. ID following. f/u rpt cultures continue abx, and abdominal drainage. if temp rec lr culture TPN for nutrition Resp: s/p extubation. Venti mask, now resp distress. Transfer to ICU renal failure: HD per renal. will defer to renal for dialysis and fluid/ electrolyte management. HD Saturday. HD cath. Right fem. Sacral wound and RLE wound: wound care following. GI proph: PPI DVT proph: rec hold hep subq. SCDS - Patient Problems (1) Peritonitis (acute) generalized Current Visit: Yes Status: Acute Subjective Narrative: Pt seen and examined at bedside. Pt lethargic and requiring bipap. She opens her eyes but does not respond. Per RT she had resp distress this time but was improving. Tmax 100.4 NG bilious minimal G tube bilious 275 cc NIKITA: chica red/old clotted blood 65cc Objective Vital Signs - 12hr 08/28/17 04:45 Temperature 98.7 F Pulse Rate [ 104 H Right] Respiratory 22 Rate Blood Pressure 106/59 O2 Sat by Pulse 100 Oximetry - General physical appearance severe distress, obese - Respiratory other (labored breathing ) - Abdomen soft Hernia: other (dressings saturated with old blood. Dressings removed and 3 kelli removed from superior portion fo wound. large amounts of hematoma evacuated from midline wound. no gastric secretions noted. wound repacked with kerlex upper and lower portions of wound. aabd. soft. pt not emiliano to state if she has pain. ) - Rectum other (drk melena from rectum/liquid stool ) - Neurologic disoriented - Labs 08/28/17 06:53 08/28/17 06:53 Diabetes panel 08/28/17 Range/Units 06:53 Sodium 142 (137-145) mmol/L Potassium 4.9 (3.6-5.0) mmol/L Chloride 101.1 (98-107) mmol/L Carbon Dioxide 23 (22-30) mmol/L BUN 81 H (7-17) mg/dL Creatinine 3.4 H (0.7-1.2) mg/dL Glucose 218 H (65-100) mg/dL Calcium 8.4 (8.4-10.2) mg/dL Calcium panel 08/28/17 Range/Units 06:53 Calcium 8.4 (8.4-10.2) mg/dL Phosphorus 4.90 H (2.5-4.5) mg/dL Pituitary panel 08/28/17 Range/Units 06:53 Sodium 142 (137-145) mmol/L Potassium 4.9 (3.6-5.0) mmol/L Chloride 101.1 (98-107) mmol/L Carbon Dioxide 23 (22-30) mmol/L BUN 81 H (7-17) mg/dL Creatinine 3.4 H (0.7-1.2) mg/dL Glucose 218 H (65-100) mg/dL Calcium 8.4 (8.4-10.2) mg/dL Adrenal panel 08/28/17 Range/Units 06:53 Sodium 142 (137-145) mmol/L Potassium 4.9 (3.6-5.0) mmol/L Chloride 101.1 (98-107) mmol/L Carbon Dioxide 23 (22-30) mmol/L BUN 81 H (7-17) mg/dL Creatinine 3.4 H (0.7-1.2) mg/dL Glucose 218 H (65-100) mg/dL Calcium 8.4 (8.4-10.2) mg/dL
--- NOTE | 2017-08-28 13:17 | Progress Note ---
Assessment and Plan Imp: 1. Acute bacterial peritonitis/abscess s/p PD cath removal and exlap 2. SBO 3. Acute respiratory failure, hypoxia 4. Morbid obesity, excess cals. 5. ESRD 6. Sepsis, better 7. Leukemoid reaction due to high-dose steroids 8. LGIB with acute blood loss anemia Rec: 1. Increase Solu-cortef back to stress-dose 2. Monitor volume status with TPN 3. BIPAP prn; wean FiO2 as per ABG which looks okay 4. Agree w/ 3 units of PRBCs and reconsulting GI; f/u serial H/H 5. Finish bolus; Levophed if necessary to keep MAP > 65; has Nair and pigtail on her R femoral vascath 6. INR mildly elevated; give dose of Vitamin K 7. SCDs ordered; stop subQ heparin 8. ABX as per ID 9. Prognosis is guarded to poor given multiple issues; family has been updated by surgery and hospitalist CCT 31 minutes Plan of care reviewed w/ patient, she understands/agrees Subjective Date of service: 08/28/17 Principal diagnosis: /anemia, poor oral intake. Interval history: + Blood from [facility]ERV[facility], stable per discussions with surgeon. New rectal bleeding with borderline hypotension this afternoon. Had some increased SOB as well, now on BIPAP at 100% but please see ABG. She is arousable, denies pain. Active Medications Al Hydrox/Mg Hydrox/Simethicone (Alum-Mag Hydrox-Simeth [id number]/5ml) 15 ml PO Q4H PRN PRN Reason: Indigestion Last Admin: 08/09/17 23:37 Dose: 15 ml Albuterol (Proventil) 2.5 mg IH Q4HRT PRN PRN Reason: Shortness Of Breath Last Admin: 08/24/17 21:49 Dose: 2.5 mg Hydrocortisone Sodium Succinate (Solu-Cortef) 25 mg IV Q8HR GLORIA Last Admin: 08/28/17 06:53 Dose: 25 mg Hydromorphone HCl (Dilaudid) 1 mg IV Q4H PRN PRN Reason: Pain , Severe (7-10) Last Admin: 08/28/17 09:52 Dose: 1 mg Hydrophilic Ointment (Vaseline Lip Therapy) 1 applic TP DIRECT PRN PRN Reason: DRY LIPS Fluconazole (Diflucan) 200 mg in 100 mls @ 100 mls/hr IV Q24HR GLORIA PRN Reason: Protocol Last Admin: 08/28/17 09:58 Dose: 100 mls/hr Amino Acids/Electrolytes/Dextrose (Tpn Adult) 1,800 mls @ 75 mls/hr IV DAILY@ 1999 [facility] PRN Reason: Protocol Stop: 08/28/17 19:59 Last Admin: 08/27/17 22:55 Dose: 75 mls/hr Sodium Chloride (Nacl 0.9%) 100 mls @ 999 mls/hr IV ISIAH PRN PRN Reason: Hypotension Amino Acids/Electrolytes/Dextrose (Tpn Adult) 1,800 mls @ 75 mls/hr IV DAILY@ 1999 [facility] PRN Reason: Protocol Stop: 08/29/17 19:59 Fat Emulsion Intravenous (Intralipid 20%) 250 mls @ 21 mls/hr IV DAILY@1999 [facility] Stop: 08/29/17 08:00 Sodium Chloride (Nacl 0.9% 500 Ml) 500 mls @ 0 mls/hr IV ONCE NR PRN Reason: As Directed Stop: 08/28/17 18:00 Insulin Human Regular (Novolin R) 0 units SUB-Q Q6HR [facility] PRN Reason: Protocol Last Admin: 08/28/17 08:08 Dose: 3 units Multi-Ingred Cream/Lotion/Oil/Oint (Artificial Tears Ophth Oint) 1 applic OU Q4H PRN PRN Reason: Dry Eye(s) Ondansetron HCl (Zofran) 4 mg IV Q6H PRN PRN Reason: Nausea And Vomiting Last Admin: 08/16/17 22:50 Dose: 4 mg Pantoprazole Sodium (Protonix) 40 mg IV BID [facility] Last Admin: 08/28/17 10:10 Dose: 40 mg Phytonadione (Vitamin K (Adult Only)) 10 mg SUB-Q ONCE ONE Stop: 08/28/17 14:13 Sodium Chloride (Nacl 0.9% 500 Ml) 1 ml IV DIRECT [facility] Objective Vital Signs - 12hr 08/28/17 04:45 Temperature 98.7 F Pulse Rate [ 104 H Right] Respiratory 22 Rate Blood Pressure 106/59 O2 Sat by Pulse 100 Oximetry Constitutional: no acute distress, alert Eyes: non-icteric ENT: oropharynx moist, other (NG tube in place in right nare) Neck: supple, no lymphadenopathy Effort: normal (on bipap, comfortable/nonlabored) Ascultation: Bilateral: clear (anteriorly) Cardiovascular: regular rate and rhythm (no mrg) Gastrointestinal: absent bowel sounds, non-tender, other (abdominal incision with dressing noted, obese) Extremities: no cyanosis, pink and warm, edema (3+ bilateral LE edema) Neurologic: normal mental status, non-focal exam, pupils equal and round Psychiatric: mood appropriate, affect normal CBC and BMP: 08/28/17 06:53 08/28/17 06:53 ABG, PT/INR, D-dimer: ABG POC ABG pH 7.481 (7.35-7.45) H 08/21/17 03:14 POC ABG pCO2 29.6 (35-45) L 08/21/17 03:14 POC ABG pO2 104 (80-105) 08/21/17 03:14 POC ABG HCO3 22.1 08/21/17 03:14 POC ABG Total CO2 23 08/21/17 03:14 POC ABG O2 Sat 98 08/21/17 03:14 PT/INR, D-dimer PT 16.0 Sec. (12.2-14.9) H 08/17/17 11:20 INR 1.29 (0.87-1.13) H 08/17/17 11:20 Abnormal lab findings: Abnormal Labs 08/08/17 08/08/17 08/09/17 21:23 21:31 11:19 WBC 15.7 H RBC 2.93 L Hgb 8.7 L Hct 26.8 L MCV RDW 19.2 H Plt Count Lymph % (Auto) [place] % (Auto) [place]on # Seg Neutrophils % Seg Neuts % (Manual) Lymphocytes % (Manual) Monocytes % (Manual) Nucleated RBC % Seg Neutrophils # Seg Neutrophils # Man Lymphocytes # (Manual) Monocytes # (Manual) Eosinophils # (Manual) Basophils # (Manual) PT INR POC ABG pH 7.490 H POC ABG pCO2 POC ABG pO2 122 H Sodium Potassium Chloride Carbon Dioxide BUN Creatinine Glucose POC Glucose Calcium Phosphorus Magnesium AST ALT Alkaline Phosphatase Troponin T 0.133 H* C-Reactive Protein Total Protein Albumin HDL Cholesterol 26 L Miscellaneous Test Crossmatch 08/09/17 08/10/17 08/10/17 13:25 04:45 04:45 WBC 15.5 H RBC 2.97 L Hgb 8.9 L Hct 27.0 L MCV RDW 19.2 H Plt Count Lymph % (Auto) [place] % (Auto) [place] # Seg Neutrophils % Seg Neuts % (Manual) 73.0 H Lymphocytes % (Manual) 7.0 L Monocytes % (Manual) 14.0 H Nucleated RBC % Seg Neutrophils # Seg Neutrophils # Man 11.3 H Lymphocytes # (Manual) 1.1 L Monocytes # (Manual) 2.2 H Eosinophils # (Manual) Basophils # (Manual) 0.2 H PT INR POC ABG pH POC ABG pCO2 POC ABG pO2 Sodium Potassium 3.3 L Chloride 97.3 L Carbon Dioxide 21 L BUN 23 H Creatinine 6.5 H Glucose POC Glucose Calcium 7.3 L Phosphorus Magnesium AST ALT Alkaline Phosphatase 138 H Troponin T 0.132 H* C-Reactive Protein Total Protein 4.8 L Albumin 1.4 L HDL Cholesterol Miscellaneous Test Crossmatch 08/11/17 08/11/17 08/12/17 04:00 04:00 05:50 WBC 19.3 H RBC 3.10 L Hgb 9.5 L Hct 28.2 L MCV RDW 19.2 H Plt Count 463 H Lymph % (Auto) 7.5 L [place] % (Auto) 14.6 H [place]on # 2.8 H Seg Neutrophils % 77.0 H Seg Neuts % (Manual) Lymphocytes % (Manual) Monocytes % (Manual) Nucleated RBC % Seg Neutrophils # 14.8 H Seg Neutrophils # Man Lymphocytes # (Manual) Monocytes # (Manual) Eosinophils # (Manual) Basophils # (Manual) PT INR POC ABG pH POC ABG pCO2 POC ABG pO2 Sodium 136 L 136 L Potassium 3.3 L Chloride 96.3 L 96.6 L Carbon Dioxide BUN 26 H 26 H Creatinine 6.4 H 6.2 H Glucose 135 H 133 H POC Glucose Calcium 8.2 L Phosphorus Magnesium 1.30 L AST ALT Alkaline Phosphatase 139 H Troponin T C-Reactive Protein Total Protein 5.5 L Albumin 1.7 L HDL Cholesterol Miscellaneous Test Crossmatch 08/12/17 08/12/17 08/12/17 05:50 05:50 05:50 WBC 20.1 H RBC 3.06 L Hgb 9.3 L Hct 27.9 L MCV RDW 18.4 H Plt Count 471 H Lymph % (Auto) [place] % (Auto) [place] # Seg Neutrophils % Seg Neuts % (Manual) 85.0 H Lymphocytes % (Manual) 8.0 L Monocytes % (Manual) Nucleated RBC % Seg Neutrophils # Seg Neutrophils # Man 17.1 H Lymphocytes # (Manual) Monocytes # (Manual) 1.0 H Eosinophils # (Manual) Basophils # (Manual) PT 15.2 H INR 1.14 H POC ABG pH POC ABG pCO2 POC ABG pO2 Sodium Potassium Chloride Carbon Dioxide BUN Creatinine Glucose POC Glucose Calcium Phosphorus Magnesium AST ALT Alkaline Phosphatase Troponin T C-Reactive Protein 28.90 H Total Protein Albumin HDL Cholesterol Miscellaneous Test Crossmatch 08/12/17 08/13/17 08/13/17 16:23 06:14 06:14 WBC 21.8 H RBC 3.11 L Hgb 9.4 L Hct 28.2 L MCV RDW 18.2 H Plt Count 492 H Lymph % (Auto) [place] % (Auto) [place] # Seg Neutrophils % Seg Neuts % (Manual) 73.0 H Lymphocytes % (Manual) 2.0 L Monocytes % (Manual) 15 H Nucleated RBC % Seg Neutrophils # Seg Neutrophils # Man 15.9 H Lymphocytes # (Manual) 0.4 L Monocytes # (Manual) 2.4 H Eosinophils # (Manual) Basophils # (Manual) PT INR POC ABG pH POC ABG pCO2 POC ABG pO2 Sodium Potassium Chloride 96.2 L Carbon Dioxide BUN 28 H Creatinine 5.6 H Glucose 114 H POC Glucose Calcium Phosphorus Magnesium AST ALT Alkaline Phosphatase Troponin T C-Reactive Protein 26.10 H Total Protein Albumin HDL Cholesterol Miscellaneous Test Crossmatch 08/13/17 08/14/17 08/14/17 16:39 04:00 04:00 WBC 22.1 H RBC 3.25 L Hgb 9.9 L Hct 29.5 L MCV RDW 17.9 H Plt Count 525 H Lymph % (Auto) [place] % (Auto) [place] # Seg Neutrophils % Seg Neuts % (Manual) 74.0 H Lymphocytes % (Manual) 8.0 L Monocytes % (Manual) 12.0 H Nucleated RBC % Seg Neutrophils # Seg Neutrophils # Man 16.4 H Lymphocytes # (Manual) Monocytes # (Manual) 2.7 H Eosinophils # (Manual) Basophils # (Manual) PT INR POC ABG pH POC ABG pCO2 POC ABG pO2 Sodium 134 L Potassium 3.3 L Chloride 93.3 L Carbon Dioxide BUN 27 H Creatinine 6.0 H Glucose 152 H POC Glucose 151 H Calcium Phosphorus Magnesium AST ALT Alkaline Phosphatase Troponin T C-Reactive Protein Total Protein Albumin HDL Cholesterol Miscellaneous Test Crossmatch 08/15/17 08/16/17 08/16/17 09:10 09:50 09:50 WBC 31.1 H RBC 3.21 L Hgb 9.6 L Hct 29.3 L MCV RDW 18.1 H Plt Count 642 H Lymph % (Auto) [place] % (Auto) [place] # Seg Neutrophils % Seg Neuts % (Manual) 74.0 H Lymphocytes % (Manual) 4.0 L Monocytes % (Manual) 9.0 H Nucleated RBC % Seg Neutrophils # Seg Neutrophils # Man 23.0 H Lymphocytes # (Manual) Monocytes # (Manual) 2.8 H Eosinophils # (Manual) Basophils # (Manual) PT INR POC ABG pH POC ABG pCO2 POC ABG pO2 Sodium 136 L 136 L Potassium 3.5 L Chloride 97.6 L 94.9 L Carbon Dioxide BUN 27 H 28 H Creatinine 5.6 H 5.5 H Glucose 117 H 103 H POC Glucose Calcium Phosphorus Magnesium AST ALT Alkaline Phosphatase 137 H Troponin T C-Reactive Protein Total Protein 5.4 L Albumin 1.5 L HDL Cholesterol Miscellaneous Test Crossmatch 08/16/17 08/17/17 08/17/17 09:50 05:00 06:26 WBC RBC Hgb Hct MCV RDW Plt Count Lymph % (Auto) [place] % (Auto) [place] # Seg Neutrophils % Seg Neuts % (Manual) Lymphocytes % (Manual) Monocytes % (Manual) Nucleated RBC % Seg Neutrophils # Seg Neutrophils # Man Lymphocytes # (Manual) Monocytes # (Manual) Eosinophils # (Manual) Basophils # (Manual) PT INR POC ABG pH POC ABG pCO2 POC ABG pO2 Sodium 134 L Potassium 3.0 L Chloride 97.8 L Carbon Dioxide BUN 30 H Creatinine 5.3 H Glucose 147 H POC Glucose 165 H Calcium 7.5 L Phosphorus Magnesium AST ALT Alkaline Phosphatase Troponin T C-Reactive Protein 32.30 H Total Protein Albumin HDL Cholesterol Miscellaneous Test Crossmatch 08/17/17 08/17/17 08/17/17 10:56 11:20 11:20 WBC 39.1 H RBC 3.10 L Hgb 9.2 L Hct 28.6 L MCV RDW 18.3 H Plt Count 580 H Lymph % (Auto) [place] % (Auto) [place] # Seg Neutrophils % Seg Neuts % (Manual) 89.5 H Lymphocytes % (Manual) 3.5 L Monocytes % (Manual) Nucleated RBC % Seg Neutrophils # Seg Neutrophils # Man 35.0 H Lymphocytes # (Manual) Monocytes # (Manual) 2.5 H Eosinophils # (Manual) Basophils # (Manual) 0.2 H PT INR POC ABG pH 7.464 H POC ABG pCO2 34.1 L POC ABG pO2 75 L Sodium Potassium Chloride Carbon Dioxide BUN Creatinine Glucose POC Glucose Calcium Phosphorus Magnesium AST ALT Alkaline Phosphatase Troponin T C-Reactive Protein Total Protein Albumin HDL Cholesterol Miscellaneous Test Flexitest 1 H Crossmatch 08/17/17 08/17/17 08/17/17 11:20 16:57 20:20 WBC 34.4 H RBC 2.81 L Hgb 8.4 L Hct 26.0 L MCV RDW 17.8 H Plt Count 455 H Lymph % (Auto) [place] % (Auto) [place] # Seg Neutrophils % Seg Neuts % (Manual) Lymphocytes % (Manual) 3.5 L Monocytes % (Manual) Nucleated RBC % 5.0 H Seg Neutrophils # Seg Neutrophils # Man 16.5 H Lymphocytes # (Manual) Monocytes # (Manual) 1.0 H Eosinophils # (Manual) Basophils # (Manual) PT 16.0 H INR 1.29 H POC ABG pH POC ABG pCO2 POC ABG pO2 Sodium 135 L Potassium 2.9 L* Chloride Carbon Dioxide 20 L BUN 32 H Creatinine 5.4 H Glucose 129 H POC Glucose Calcium 7.5 L Phosphorus Magnesium 1.50 L AST 85 H ALT Alkaline Phosphatase Troponin T C-Reactive Protein Total Protein 4.0 L D Albumin 1.6 L HDL Cholesterol Miscellaneous Test Crossmatch 08/17/17 08/17/17 08/18/17 20:54 23:47 04:26 WBC RBC Hgb Hct MCV RDW Plt Count Lymph % (Auto) [place] % (Auto) [place] # Seg Neutrophils % Seg Neuts % (Manual) Lymphocytes % (Manual) Monocytes % (Manual) Nucleated RBC % Seg Neutrophils # Seg Neutrophils # Man Lymphocytes # (Manual) Monocytes # (Manual) Eosinophils # (Manual) Basophils # (Manual) PT INR POC ABG pH 7.557 H POC ABG pCO2 23.1 L 29.0 L POC ABG pO2 187 H 148 H Sodium Potassium Chloride Carbon Dioxide BUN Creatinine Glucose POC Glucose 188 H Calcium Phosphorus Magnesium AST ALT Alkaline Phosphatase Troponin T C-Reactive Protein Total Protein Albumin HDL Cholesterol Miscellaneous Test Crossmatch 08/18/17 08/18/17 08/18/17 05:51 11:44 17:07 WBC RBC Hgb Hct MCV RDW Plt Count Lymph % (Auto) [place] % (Auto) [place] # Seg Neutrophils % Seg Neuts % (Manual) Lymphocytes % (Manual) Monocytes % (Manual) Nucleated RBC % Seg Neutrophils # Seg Neutrophils # Man Lymphocytes # (Manual) Monocytes # (Manual) Eosinophils # (Manual) Basophils # (Manual) PT INR POC ABG pH POC ABG pCO2 POC ABG pO2 Sodium Potassium Chloride Carbon Dioxide BUN Creatinine Glucose POC Glucose 202 H 195 H 182 H Calcium Phosphorus Magnesium AST ALT Alkaline Phosphatase Troponin T C-Reactive Protein Total Protein Albumin HDL Cholesterol Miscellaneous Test Crossmatch 08/18/17 08/18/17 08/18/17 23:45 Unknown Unknown WBC 39.0 H RBC 2.84 L Hgb 8.4 L Hct 26.5 L MCV RDW 18.0 H Plt Count 476 H Lymph % (Auto) [place] % (Auto) [place] # Seg Neutrophils % Seg Neuts % (Manual) Lymphocytes % (Manual) 7.0 L Monocytes % (Manual) 10.0 H Nucleated RBC % 3.0 H Seg Neutrophils # Seg Neutrophils # Man 15.6 H Lymphocytes # (Manual) Monocytes # (Manual) 3.9 H Eosinophils # (Manual) Basophils # (Manual) PT INR POC ABG pH POC ABG pCO2 POC ABG pO2 Sodium Potassium Chloride Carbon Dioxide 19 L BUN 34 H Creatinine 5.6 H Glucose 201 H POC Glucose 163 H Calcium 7.8 L Phosphorus 1.90 L D Magnesium 1.60 L AST ALT Alkaline Phosphatase Troponin T C-Reactive Protein Total Protein Albumin HDL Cholesterol Miscellaneous Test Crossmatch 08/19/17 08/19/17 08/19/17 04:18 05:00 05:00 WBC 40.0 H RBC 2.46 L Hgb 7.3 L Hct 22.6 L MCV RDW 18.1 H Plt Count Lymph % (Auto) [place] % (Auto) [place] # Seg Neutrophils % Seg Neuts % (Manual) Lymphocytes % (Manual) 8.0 L Monocytes % (Manual) Nucleated RBC % 2.0 H Seg Neutrophils # Seg Neutrophils # Man 16.4 H Lymphocytes # (Manual) Monocytes # (Manual) 1.2 H Eosinophils # (Manual) 1.2 H Basophils # (Manual) PT INR POC ABG pH 7.463 H POC ABG pCO2 29.7 L POC ABG pO2 134 H Sodium Potassium 5.1 H D Chloride Carbon Dioxide 20 L BUN 40 H Creatinine 5.3 H Glucose 128 H POC Glucose Calcium 7.8 L Phosphorus 1.90 L Magnesium AST ALT Alkaline Phosphatase Troponin T C-Reactive Protein Total Protein Albumin HDL Cholesterol Miscellaneous Test Crossmatch 08/19/17 08/19/17 08/19/17 05:19 07:37 09:52 WBC 45.0 H* RBC 2.50 L Hgb 7.5 L Hct 24.5 L MCV 98 H RDW 18.4 H Plt Count Lymph % (Auto) [place] % (Auto) [place] # Seg Neutrophils % Seg Neuts % (Manual) 81.5 H Lymphocytes % (Manual) 4.0 L Monocytes % (Manual) Nucleated RBC % 1.0 H Seg Neutrophils # Seg Neutrophils # Man 36.7 H Lymphocytes # (Manual) Monocytes # (Manual) Eosinophils # (Manual) Basophils # (Manual) PT INR POC ABG pH POC ABG pCO2 POC ABG pO2 Sodium Potassium Chloride Carbon Dioxide BUN Creatinine Glucose POC Glucose 142 H Calcium Phosphorus Magnesium AST ALT Alkaline Phosphatase Troponin T C-Reactive Protein 34.20 H Total Protein Albumin HDL Cholesterol Miscellaneous Test Crossmatch 08/19/17 08/19/17 08/20/17 11:16 18:12 00:35 WBC RBC Hgb Hct MCV RDW Plt Count Lymph % (Auto) [place] % (Auto) [place] # Seg Neutrophils % Seg Neuts % (Manual) Lymphocytes % (Manual) Monocytes % (Manual) Nucleated RBC % Seg Neutrophils # Seg Neutrophils # Man Lymphocytes # (Manual) Monocytes # (Manual) Eosinophils # (Manual) Basophils # (Manual) PT INR POC ABG pH POC ABG pCO2 POC ABG pO2 Sodium Potassium Chloride Carbon Dioxide BUN Creatinine Glucose POC Glucose 143 H 137 H 164 H Calcium Phosphorus Magnesium AST ALT Alkaline Phosphatase Troponin T C-Reactive Protein Total Protein Albumin HDL Cholesterol Miscellaneous Test Crossmatch 08/20/17 08/20/17 08/20/17 03:20 03:20 04:00 WBC 48.0 H* RBC 2.55 L Hgb 7.6 L Hct 23.4 L MCV RDW 18.4 H Plt Count Lymph % (Auto) [place] % (Auto) [place] # Seg Neutrophils % Seg Neuts % (Manual) 90.0 H Lymphocytes % (Manual) 3.0 L Monocytes % (Manual) Nucleated RBC % Seg Neutrophils # Seg Neutrophils # Man 43.2 H Lymphocytes # (Manual) Monocytes # (Manual) 1.4 H Eosinophils # (Manual) 0.5 H Basophils # (Manual) PT INR POC ABG pH 7.499 H POC ABG pCO2 29.1 L POC ABG pO2 Sodium 135 L Potassium Chloride Carbon Dioxide BUN 28 H Creatinine 4.0 H Glucose 140 H POC Glucose Calcium 8.0 L Phosphorus 1.70 L Magnesium 1.60 L AST ALT Alkaline Phosphatase Troponin T C-Reactive Protein Total Protein Albumin HDL Cholesterol Miscellaneous Test Crossmatch 08/20/17 08/20/17 08/20/17 05:02 12:05 13:12 WBC RBC Hgb Hct MCV RDW Plt Count Lymph % (Auto) [place] % (Auto) [place] # Seg Neutrophils % Seg Neuts % (Manual) Lymphocytes % (Manual) Monocytes % (Manual) Nucleated RBC % Seg Neutrophils # Seg Neutrophils # Man Lymphocytes # (Manual) Monocytes # (Manual) Eosinophils # (Manual) Basophils # (Manual) PT INR POC ABG pH 7.537 H POC ABG pCO2 27.9 L POC ABG pO2 79 L Sodium Potassium Chloride Carbon Dioxide BUN Creatinine Glucose POC Glucose 158 H 203 H Calcium Phosphorus Magnesium AST ALT Alkaline Phosphatase Troponin T C-Reactive Protein Total Protein Albumin HDL Cholesterol Miscellaneous Test Crossmatch 08/20/17 08/21/17 08/21/17 17:13 00:47 03:14 WBC RBC Hgb Hct MCV RDW Plt Count Lymph % (Auto) [place] % (Auto) [place] # Seg Neutrophils % Seg Neuts % (Manual) Lymphocytes % (Manual) Monocytes % (Manual) Nucleated RBC % Seg Neutrophils # Seg Neutrophils # Man Lymphocytes # (Manual) Monocytes # (Manual) Eosinophils # (Manual) Basophils # (Manual) PT INR POC ABG pH 7.481 H POC ABG pCO2 29.6 L POC ABG pO2 Sodium Potassium Chloride Carbon Dioxide BUN Creatinine Glucose POC Glucose 188 H 109 H Calcium Phosphorus Magnesium AST ALT Alkaline Phosphatase Troponin T C-Reactive Protein Total Protein Albumin HDL Cholesterol Miscellaneous Test Crossmatch 08/21/17 08/21/17 08/21/17 05:05 06:50 06:50 WBC 44.7 H* RBC 2.41 L Hgb 7.1 L Hct 22.1 L MCV RDW 18.3 H Plt Count Lymph % (Auto) [place] % (Auto) [place] # Seg Neutrophils % Seg Neuts % (Manual) 89.0 H Lymphocytes % (Manual) 0 L Monocytes % (Manual) Nucleated RBC % 1.0 H Seg Neutrophils # Seg Neutrophils # Man 39.8 H Lymphocytes # (Manual) 0.0 L Monocytes # (Manual) 1.3 H Eosinophils # (Manual) Basophils # (Manual) PT INR POC ABG pH POC ABG pCO2 POC ABG pO2 Sodium 135 L Potassium Chloride Carbon Dioxide BUN 39 H Creatinine 4.4 H Glucose 147 H POC Glucose 166 H Calcium 8.1 L Phosphorus Magnesium AST ALT < 5 L Alkaline Phosphatase 164 H Troponin T C-Reactive Protein Total Protein 4.7 L Albumin 1.4 L HDL Cholesterol Miscellaneous Test Crossmatch 08/21/17 08/21/17 08/21/17 08:00 12:21 17:02 WBC RBC Hgb Hct MCV RDW Plt Count Lymph % (Auto) [place] % (Auto) [place] # Seg Neutrophils % Seg Neuts % (Manual) Lymphocytes % (Manual) Monocytes % (Manual) Nucleated RBC % Seg Neutrophils # Seg Neutrophils # Man Lymphocytes # (Manual) Monocytes # (Manual) Eosinophils # (Manual) Basophils # (Manual) PT INR POC ABG pH POC ABG pCO2 POC ABG pO2 Sodium Potassium Chloride Carbon Dioxide BUN Creatinine Glucose POC Glucose 147 H 135 H Calcium Phosphorus Magnesium AST ALT Alkaline Phosphatase Troponin T C-Reactive Protein Total Protein Albumin HDL Cholesterol Miscellaneous Test Crossmatch See Detail 08/21/17 08/22/17 08/22/17 23:38 03:40 03:40 WBC 42.5 H* RBC 2.88 L Hgb 8.5 L Hct 26.3 L MCV RDW 17.9 H Plt Count Lymph % (Auto) [place] % (Auto) [place] # Seg Neutrophils % Seg Neuts % (Manual) Lymphocytes % (Manual) 5.0 L Monocytes % (Manual) Nucleated RBC % Seg Neutrophils # Seg Neutrophils # Man 19.6 H Lymphocytes # (Manual) Monocytes # (Manual) 2.6 H Eosinophils # (Manual) Basophils # (Manual) PT INR POC ABG pH POC ABG pCO2 POC ABG pO2 Sodium Potassium 3.3 L D Chloride Carbon Dioxide BUN 27 H Creatinine 2.9 H Glucose 144 H POC Glucose 251 H Calcium 8.0 L Phosphorus 2.40 L Magnesium AST ALT Alkaline Phosphatase Troponin T C-Reactive Protein Total Protein Albumin HDL Cholesterol Miscellaneous Test Crossmatch 08/22/17 08/22/17 08/22/17 06:37 11:25 16:25 WBC RBC Hgb Hct MCV RDW Plt Count Lymph % (Auto) [place] % (Auto) [place] # Seg Neutrophils % Seg Neuts % (Manual) Lymphocytes % (Manual) Monocytes % (Manual) Nucleated RBC % Seg Neutrophils # Seg Neutrophils # Man Lymphocytes # (Manual) Monocytes # (Manual) Eosinophils # (Manual) Basophils # (Manual) PT INR POC ABG pH POC ABG pCO2 POC ABG pO2 Sodium Potassium Chloride Carbon Dioxide BUN Creatinine Glucose POC Glucose 152 H 175 H Calcium Phosphorus Magnesium AST ALT Alkaline Phosphatase Troponin T C-Reactive Protein 30.70 H Total Protein Albumin HDL Cholesterol Miscellaneous Test Crossmatch 08/22/17 08/22/17 08/23/17 17:56 23:03 05:36 WBC RBC Hgb Hct MCV RDW Plt Count Lymph % (Auto) [place] % (Auto) [place] # Seg Neutrophils % Seg Neuts % (Manual) Lymphocytes % (Manual) Monocytes % (Manual) Nucleated RBC % Seg Neutrophils # Seg Neutrophils # Man Lymphocytes # (Manual) Monocytes # (Manual) Eosinophils # (Manual) Basophils # (Manual) PT INR POC ABG pH POC ABG pCO2 POC ABG pO2 Sodium Potassium Chloride Carbon Dioxide BUN Creatinine Glucose POC Glucose 232 H 192 H 206 H Calcium Phosphorus Magnesium AST ALT Alkaline Phosphatase Troponin T C-Reactive Protein Total Protein Albumin HDL Cholesterol Miscellaneous Test Crossmatch 08/23/17 08/23/17 08/23/17 08:50 12:14 17:21 WBC RBC Hgb Hct MCV RDW Plt Count Lymph % (Auto) [place] % (Auto) [place] # Seg Neutrophils % Seg Neuts % (Manual) Lymphocytes % (Manual) Monocytes % (Manual) Nucleated RBC % Seg Neutrophils # Seg Neutrophils # Man Lymphocytes # (Manual) Monocytes # (Manual) Eosinophils # (Manual) Basophils # (Manual) PT INR POC ABG pH POC ABG pCO2 POC ABG pO2 Sodium Potassium Chloride 107.1 H Carbon Dioxide BUN 49 H Creatinine 3.3 H Glucose 172 H POC Glucose 238 H 226 H Calcium Phosphorus Magnesium 2.40 H AST ALT Alkaline Phosphatase Troponin T C-Reactive Protein Total Protein Albumin HDL Cholesterol Miscellaneous Test Crossmatch 08/23/17 08/24/17 08/24/17 23:13 04:00 05:06 WBC 34.2 H RBC 2.86 L Hgb 8.4 L Hct 25.9 L MCV RDW 17.9 H Plt Count Lymph % (Auto) [place] % (Auto) [place] # Seg Neutrophils % Seg Neuts % (Manual) 85.0 H Lymphocytes % (Manual) 0.5 L Monocytes % (Manual) Nucleated RBC % 1.0 H Seg Neutrophils # Seg Neutrophils # Man 29.1 H Lymphocytes # (Manual) 0.2 L Monocytes # (Manual) 2.4 H Eosinophils # (Manual) Basophils # (Manual) PT INR POC ABG pH POC ABG pCO2 POC ABG pO2 Sodium Potassium Chloride Carbon Dioxide BUN Creatinine Glucose POC Glucose 183 H 201 H Calcium Phosphorus Magnesium AST ALT Alkaline Phosphatase Troponin T C-Reactive Protein Total Protein Albumin HDL Cholesterol Miscellaneous Test Crossmatch 08/24/17 08/24/17 08/24/17 09:30 12:04 18:04 WBC RBC Hgb Hct MCV RDW Plt Count Lymph % (Auto) [place] % (Auto) [place] # Seg Neutrophils % Seg Neuts % (Manual) Lymphocytes % (Manual) Monocytes % (Manual) Nucleated RBC % Seg Neutrophils # Seg Neutrophils # Man Lymphocytes # (Manual) Monocytes # (Manual) Eosinophils # (Manual) Basophils # (Manual) PT INR POC ABG pH POC ABG pCO2 POC ABG pO2 Sodium Potassium Chloride Carbon Dioxide BUN 46 H Creatinine 2.5 H Glucose 176 H POC Glucose 181 H 189 H Calcium Phosphorus Magnesium AST ALT Alkaline Phosphatase Troponin T C-Reactive Protein Total Protein Albumin HDL Cholesterol Miscellaneous Test Crossmatch 08/24/17 08/25/17 08/25/17 23:05 05:05 07:02 WBC RBC Hgb Hct MCV RDW Plt Count Lymph % (Auto) [place] % (Auto) [place] # Seg Neutrophils % Seg Neuts % (Manual) Lymphocytes % (Manual) Monocytes % (Manual) Nucleated RBC % Seg Neutrophils # Seg Neutrophils # Man Lymphocytes # (Manual) Monocytes # (Manual) Eosinophils # (Manual) Basophils # (Manual) PT INR POC ABG pH POC ABG pCO2 POC ABG pO2 Sodium Potassium Chloride Carbon Dioxide BUN 32 H Creatinine 5.0 H D Glucose 117 H POC Glucose 175 H 190 H Calcium 8.0 L Phosphorus Magnesium AST ALT Alkaline Phosphatase Troponin T C-Reactive Protein Total Protein Albumin HDL Cholesterol Miscellaneous Test Crossmatch 08/25/17 08/26/17 08/26/17 11:53 05:30 05:30 WBC 33.5 H RBC 2.47 L Hgb 7.3 L Hct 23.0 L MCV RDW 21.3 H Plt Count Lymph % (Auto) [place] % (Auto) [place] # Seg Neutrophils % Seg Neuts % (Manual) 92.0 H Lymphocytes % (Manual) 1.0 L Monocytes % (Manual) Nucleated RBC % Seg Neutrophils # Seg Neutrophils # Man 30.8 H Lymphocytes # (Manual) 0.3 L Monocytes # (Manual) Eosinophils # (Manual) Basophils # (Manual) PT INR POC ABG pH POC ABG pCO2 POC ABG pO2 Sodium Potassium 5.2 H Chloride Carbon Dioxide BUN 80 H Creatinine 3.4 H Glucose 193 H POC Glucose 191 H Calcium 8.3 L Phosphorus 6.80 H D Magnesium 2.60 H AST 135 H ALT Alkaline Phosphatase 211 H Troponin T C-Reactive Protein Total Protein 4.8 L Albumin 2.0 L HDL Cholesterol Miscellaneous Test Crossmatch 08/26/17 08/26/17 08/27/17 06:44 13:26 01:08 WBC RBC Hgb Hct MCV RDW Plt Count Lymph % (Auto) [place] % (Auto) [place] # Seg Neutrophils % Seg Neuts % (Manual) Lymphocytes % (Manual) Monocytes % (Manual) Nucleated RBC % Seg Neutrophils # Seg Neutrophils # Man Lymphocytes # (Manual) Monocytes # (Manual) Eosinophils # (Manual) Basophils # (Manual) PT INR POC ABG pH POC ABG pCO2 POC ABG pO2 Sodium Potassium Chloride Carbon Dioxide BUN Creatinine Glucose POC Glucose 232 H 207 H 146 H Calcium Phosphorus Magnesium AST ALT Alkaline Phosphatase Troponin T C-Reactive Protein Total Protein Albumin HDL Cholesterol Miscellaneous Test Crossmatch 08/27/17 08/27/17 08/27/17 06:20 06:20 07:01 WBC 35.0 H RBC 2.75 L Hgb 8.4 L Hct 25.1 L MCV RDW 21.8 H Plt Count Lymph % (Auto) [place] % (Auto) [place] # Seg Neutrophils % Seg Neuts % (Manual) Lymphocytes % (Manual) 4.5 L Monocytes % (Manual) Nucleated RBC % Seg Neutrophils # Seg Neutrophils # Man 31.9 H Lymphocytes # (Manual) Monocytes # (Manual) 1.2 H Eosinophils # (Manual) Basophils # (Manual) PT INR POC ABG pH POC ABG pCO2 POC ABG pO2 Sodium Potassium Chloride Carbon Dioxide BUN 61 H Creatinine 2.6 H Glucose 184 H POC Glucose 165 H Calcium Phosphorus 4.90 H D Magnesium AST ALT Alkaline Phosphatase Troponin T C-Reactive Protein Total Protein Albumin HDL Cholesterol Miscellaneous Test Crossmatch 08/27/17 08/27/17 08/27/17 09:17 12:52 17:27 WBC RBC Hgb Hct MCV RDW Plt Count Lymph % (Auto) [place] % (Auto) [place] # Seg Neutrophils % Seg Neuts % (Manual) Lymphocytes % (Manual) Monocytes % (Manual) Nucleated RBC % Seg Neutrophils # Seg Neutrophils # Man Lymphocytes # (Manual) Monocytes # (Manual) Eosinophils # (Manual) Basophils # (Manual) PT INR POC ABG pH POC ABG pCO2 POC ABG pO2 Sodium Potassium Chloride Carbon Dioxide BUN Creatinine Glucose POC Glucose 198 H 218 H 151 H Calcium Phosphorus Magnesium AST ALT Alkaline Phosphatase Troponin T C-Reactive Protein Total Protein Albumin HDL Cholesterol Miscellaneous Test Crossmatch 08/28/17 08/28/17 08/28/17 02:13 06:46 06:53 WBC RBC Hgb Hct MCV RDW Plt Count Lymph % (Auto) [place] % (Auto) [place] # Seg Neutrophils % Seg Neuts % (Manual) Lymphocytes % (Manual) Monocytes % (Manual) Nucleated RBC % Seg Neutrophils # Seg Neutrophils # Man Lymphocytes # (Manual) Monocytes # (Manual) Eosinophils # (Manual) Basophils # (Manual) PT INR POC ABG pH POC ABG pCO2 POC ABG pO2 Sodium Potassium Chloride Carbon Dioxide BUN 81 H Creatinine 3.4 H Glucose 218 H POC Glucose 155 H 230 H Calcium Phosphorus 4.90 H Magnesium AST ALT Alkaline Phosphatase Troponin T C-Reactive Protein Total Protein Albumin HDL Cholesterol Miscellaneous Test Crossmatch 08/28/17 08/28/17 06:53 11:56 WBC 31.1 H RBC 2.26 L Hgb 6.8 L Hct 20.9 L MCV RDW 21.7 H Plt Count Lymph % (Auto) [place] % (Auto) [place] # Seg Neutrophils % Seg Neuts % (Manual) 83.0 H Lymphocytes % (Manual) 4.0 L Monocytes % (Manual) Nucleated RBC % Seg Neutrophils # Seg Neutrophils # Man 25.8 H Lymphocytes # (Manual) Monocytes # (Manual) Eosinophils # (Manual) Basophils # (Manual) PT INR POC ABG pH POC ABG pCO2 POC ABG pO2 Sodium Potassium Chloride Carbon Dioxide BUN Creatinine Glucose POC Glucose Calcium Phosphorus Magnesium AST ALT Alkaline Phosphatase Troponin T C-Reactive Protein Total Protein Albumin HDL Cholesterol Miscellaneous Test Crossmatch See Detail Chest x-ray: report reviewed, image reviewed (08/27/17 = mild congestion)
--- NOTE | 2017-08-28 13:35 | Progress Note ---
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 - Resolved Sepsis secondary to peritonitis /catheter related complex UTI present on admission - Patient completed 14 days of meropenem, 10 out of 14 days of Diflucan End-stage renal disease - PD catheter removed due to infection - Patient is a femoral Vas-Cath, colidn'yt put perm cath because of her respiratory distress Hypophosphatemia/hypomagnesemia - ESRD Urinary retention - Urology consult appreciated Bowel obstruction / status post exploratory lap with removal of PD catheter as a cause of obstruction. - bleeding and clot removed from the surgical site Peritonitis /small bowel obstruction , s/p G-tube placement, abdominal washout, abscess hematoma collection - Was treated with meropenem Ulcerative esophagitis/small gastric ulcer on EGD - IV pantoprazole Severe Protein calorie malnutrition - Continue with TPN Sacral and lower extremity wound - continue wound care Leukocytosis - Hematology is following --DVT prophylaxis; SCDs - D/C Heparin --Physical therapy occupational therapy evaluation and treat Plan of care discussed with the patient and her nurse Disposition - transfer to ICU Prognosis: guarded - Daughter was notified about the change in condition of the patient. History Interval history: Patient was seen and evaluated this morning, patient was lethargic and has difficulty of breathing and she is on 50% Ventimask. Hospitalist Physical - Physical exam Narrative exam: Patient is in no respiratory distress and she is on 50% Ventimask The patient is obese. Vital signs as documented. Head exam is unremarkable. No scleral icterus . Neck is without jugular venous distension, thyromegaly, or carotid bruits. Lungs are clear to auscultation. Cardiac exam reveals tachycardia. 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 - Constitutional Vitals: Temp Pulse Resp BP Pulse Ox 98.7 F 104 H 22 106/59 100 08/28/17 04:45 08/28/17 04:45 08/28/17 04:45 08/28/17 04:45 08/28/17 04:45 General appearance: Present: mild distress, well-nourished Results - Labs CBC & Chem 7: 08/28/17 06:53 08/28/17 06:53 Labs: Laboratory Last Values WBC 31.1 K/mm3 (4.5-11.0) H 08/28/17 06:53 RBC 2.26 M/mm3 (3.65-5.03) L 08/28/17 06:53 Hgb 6.8 gm/dl (10.1-14.3) L 08/28/17 06:53 Hct 20.9 % (30.3-42.9) L 08/28/17 06:53 MCV 93 fl (79-97) 08/28/17 06:53 MCH 30 pg (28-32) 08/28/17 06:53 MCHC 33 % (30-34) 08/28/17 06:53 RDW 21.7 % (13.2-15.2) H 08/28/17 06:53 Plt Count 384 K/mm3 (140-440) 08/28/17 06:53 Lymph % (Auto) Law Examiner 08/19/17 07:37 [place] % (Auto) Law Examiner 08/19/17 07:37 Eos % (Auto) Law Examiner 08/19/17 07:37 Baso % (Auto) Law Examiner 08/19/17 07:37 Lymph # Law Examiner 08/19/17 07:37 [place] # Law Examiner 08/19/17 07:37 Eos # Law Examiner 08/19/17 07:37 Baso # Law Examiner 08/19/17 07:37 Add Manual Diff Complete 08/28/17 06:53 Total Counted 100 08/28/17 06:53 Seg Neutrophils % Law Examiner 08/28/17 06:53 Seg Neuts % (Manual) 83.0 % (40.0-70.0) H 08/28/17 06:53 Band Neutrophils % 11.0 % 08/28/17 06:53 Lymphocytes % (Manual) 4.0 % (13.4-35.0) L 08/28/17 06:53 Reactive Lymphs % (Man) 0 % 08/28/17 06:53 Monocytes % (Manual) 2.0 % (0.0-7.3) 08/28/17 06:53 Eosinophils % (Manual) 0 % (0.0-4.3) 08/28/17 06:53 Basophils % (Manual) 0 % (0.0-1.8) 08/28/17 06:53 Metamyelocytes % 0 % 08/28/17 06:53 Myelocytes % 0 % 08/28/17 06:53 Promyelocytes % 0 % 08/28/17 06:53 Blast Cells % 0 % 08/28/17 06:53 Nucleated RBC % Not Reportable 08/28/17 06:53 Seg Neutrophils # Law Examiner 08/19/17 07:37 Seg Neutrophils # Man 25.8 K/mm3 (1.8-7.7) H 08/28/17 06:53 Band Neutrophils # 3.4 K/mm3 08/28/17 06:53 Lymphocytes # (Manual) 1.2 K/mm3 (1.2-5.4) 08/28/17 06:53 Abs React Lymphs (Man) 0.0 K/mm3 08/28/17 06:53 Monocytes # (Manual) 0.6 K/mm3 (0.0-0.8) 08/28/17 06:53 Eosinophils # (Manual) 0.0 K/mm3 (0.0-0.4) 08/28/17 06:53 Basophils # (Manual) 0.0 K/mm3 (0.0-0.1) 08/28/17 06:53 Metamyelocytes # 0.0 K/mm3 08/28/17 06:53 Myelocytes # 0.0 K/mm3 08/28/17 06:53 Promyelocytes # 0.0 K/mm3 08/28/17 06:53 Blast Cells # 0.0 K/mm3 08/28/17 06:53 WBC Morphology Not Reportable 08/28/17 06:53 Hypersegmented Neuts Not Reportable 08/28/17 06:53 Hyposegmented Neuts Not Reportable 08/28/17 06:53 Hypogranular Neuts Not Reportable 08/28/17 06:53 Smudge Cells Not Reportable 08/28/17 06:53 Toxic Granulation Not Reportable 08/28/17 06:53 Toxic Vacuolation Not Reportable 08/28/17 06:53 Dohle Bodies Not Reportable 08/28/17 06:53 Pelger-Huet Anomaly Not Reportable 08/28/17 06:53 Ariel Rods Not Reportable 08/28/17 06:53 Platelet Estimate Not Reportable 08/28/17 06:53 Clumped Platelets Not Reportable 08/28/17 06:53 Plt Clumps, EDTA Not Reportable 08/28/17 06:53 Large Platelets Not Reportable 08/28/17 06:53 Giant Platelets Not Reportable 08/28/17 06:53 Platelet Satelliting Not Reportable 08/28/17 06:53 Plt Morphology Comment Not Reportable 08/28/17 06:53 RBC Morphology Not Reportable 08/28/17 06:53 Dimorphic RBCs Not Reportable 08/28/17 06:53 Polychromasia Not Reportable 08/28/17 06:53 Hypochromasia Not Reportable 08/28/17 06:53 Poikilocytosis Not Reportable 08/28/17 06:53 Anisocytosis 1+ 08/28/17 06:53 Microcytosis Not Reportable 08/28/17 06:53 Macrocytosis Not Reportable 08/28/17 06:53 Spherocytes Rare 08/28/17 06:53 Pappenheimer Bodies Not Reportable 08/28/17 06:53 Sickle Cells Not Reportable 08/28/17 06:53 Target Cells 1+ 08/28/17 06:53 Tear Drop Cells Not Reportable 08/28/17 06:53 Ovalocytes Not Reportable 08/28/17 06:53 Stomatocytes Few 08/20/17 03:20 Helmet Cells Not Reportable 08/28/17 06:53 [place] Bodies Not Reportable 08/28/17 06:53 [place] Rings Not Reportable 08/28/17 06:53 Yusuf Cells Not Reportable 08/28/17 06:53 Bite Cells Not Reportable 08/28/17 06:53 Crenated Cell Not Reportable 08/28/17 06:53 Elliptocytes Not Reportable 08/28/17 06:53 Acanthocytes (Spur) Not Reportable 08/28/17 06:53 Rouleaux Not Reportable 08/28/17 06:53 Hemoglobin C Crystals Not Reportable 08/28/17 06:53 Schistocytes Not Reportable 08/28/17 06:53 Malaria parasites Not Reportable 08/28/17 06:53 Jovanni Bodies Not Reportable 08/28/17 06:53 Hem Pathologist Commnt No 08/28/17 06:53 PT 16.0 Sec. (12.2-14.9) H 08/17/17 11:20 INR 1.29 (0.87-1.13) H 08/17/17 11:20 APTT 35.5 Sec. (24.2-36.6) 08/12/17 05:50 POC ABG pH 7.481 (7.35-7.45) H 08/21/17 03:14 POC ABG pCO2 29.6 (35-45) L 08/21/17 03:14 POC ABG pO2 104 (80-105) 08/21/17 03:14 POC ABG HCO3 22.1 08/21/17 03:14 POC ABG Total CO2 23 08/21/17 03:14 POC ABG O2 Sat 98 08/21/17 03:14 POC ABG Base Excess -1 08/21/17 03:14 VBG pH 7.462 (7.320-7.420) H 08/08/17 14:52 FiO2 30 % 08/21/17 03:14 Sodium 142 mmol/L (137-145) 08/28/17 06:53 Potassium 4.9 mmol/L (3.6-5.0) 08/28/17 06:53 Chloride 101.1 mmol/L (98-107) 08/28/17 06:53 Carbon Dioxide 23 mmol/L (22-30) 08/28/17 06:53 Anion Gap 23 mmol/L 08/28/17 06:53 BUN 81 mg/dL (7-17) H 08/28/17 06:53 Creatinine 3.4 mg/dL (0.7-1.2) H 08/28/17 06:53 Estimated GFR 17 ml/min 08/28/17 06:53 BUN/Creatinine Ratio 24 % 08/28/17 06:53 Glucose 218 mg/dL (65-100) H 08/28/17 06:53 POC Glucose 230 (70-105) H 08/28/17 06:46 Lactic Acid 1.60 mmol/L (0.7-2.0) 08/17/17 11:20 Calcium 8.4 mg/dL (8.4-10.2) 08/28/17 06:53 Phosphorus 4.90 mg/dL (2.5-4.5) H 08/28/17 06:53 Magnesium 2.10 mg/dL (1.7-2.3) 08/28/17 06:53 Total Bilirubin 0.50 mg/dL (0.1-1.2) 08/26/17 05:30 Direct Bilirubin 0.2 mg/dL (0-0.2) 08/08/17 14:11 Indirect Bilirubin 0.3 mg/dL 08/08/17 14:11 AST 135 units/L (5-40) H 08/26/17 05:30 ALT 49 units/L (7-56) 08/26/17 05:30 Alkaline Phosphatase 211 units/L (35-129) H 08/26/17 05:30 Ammonia 25.0 umol/L (25-60) 08/08/17 14:52 Troponin T 0.132 ng/mL (0.00-0.029) H* 08/09/17 13:25 C-Reactive Protein 30.70 mg/dL (0.00-1.30) H 08/22/17 16:25 NT-Pro-B Natriuret Pep 6156 pg/mL (0-900) H 08/08/17 14:11 Total Protein 4.8 g/dL (6.3-8.2) L 08/26/17 05:30 Albumin 2.0 g/dL (3.9-5) L 08/26/17 05:30 Albumin/Globulin Ratio 0.7 % 08/26/17 05:30 Triglycerides 62 mg/dL (2-149) 08/08/17 21:23 Cholesterol 91 mg/dL (50-199) 08/08/17 21:23 LDL Cholesterol Direct 53 mg/dL (50-130) 08/08/17 21:23 HDL Cholesterol 26 mg/dL (40-59) L 08/08/17 21:23 Cholesterol/HDL Ratio 3.50 % 08/08/17 21:23 Amylase 45 units/L (27-131) 08/16/17 09:50 Lipase 34 units/L (13-60) 08/16/17 09:50 TSH 6.580 mlU/mL (0.270-4.200) H 08/08/17 14:22 Free T4 1.46 ng/dL (0.76-1.46) 08/08/17 14:22 Total Cortisol 30.1 mcg/dL () 08/13/17 06:14 Urine Color Yellow (Yellow) 08/08/17 20:15 Urine Turbidity Turbid (Clear) 08/08/17 20:15 Urine pH 8.0 (5.0-7.0) H 08/08/17 20:15 Ur Specific [place] 1.015 (1.003-1.030) 08/08/17 20:15 Urine Protein 100 mg/dl mg/dL (Negative) 08/08/17 20:15 Urine Glucose (UA) Neg mg/dL (Negative) 08/08/17 20:15 Urine Ketones Neg mg/dL (Negative) 08/08/17 20:15 Urine Blood Mod (Negative) 08/08/17 20:15 Urine Nitrite Neg (Negative) 08/08/17 20:15 Urine Bilirubin Neg (Negative) 08/08/17 20:15 Urine Urobilinogen < 2.0 mg/dL (<2.0) 08/08/17 20:15 Ur Leukocyte Esterase Lg (Negative) 08/08/17 20:15 Urine WBC (Auto) 24.0 /HPF (0.0-6.0) H 08/08/17 20:15 Urine RBC (Auto) 3.0 /HPF (0.0-6.0) 08/08/17 20:15 U Epithel Cells (Auto) 3.0 /HPF (0-13.0) 08/08/17 20:15 Urine Bacteria (Auto) 4+ /HPF (Negative) 08/08/17 20:15 Urine Mucus 3+ /HPF 08/08/17 20:15 Fluid Type Peritoneal 08/08/17 18:18 Fluid Color Straw 08/08/17 18:18 Fluid Appearance Clear 08/08/17 18:18 Fluid pH 7.74 08/08/17 18:18 Fluid WBC 4 /mm3 08/08/17 18:18 Fluid RBC 1 /mm3 08/08/17 18:18 Fluid Seg Neutrophils 12 % 08/08/17 18:18 Fluid Lymphocytes 0 % 08/08/17 18:18 Fluid Reactive Lymphs 0 % 08/08/17 18:18 Fluid Monocytes 1 % 08/08/17 18:18 Fluid Eosinophils 0 % 08/08/17 18:18 Fluid Basophils 0 % 08/08/17 18:18 Fluid Glucose 315 mg/dL (40-70) H 08/08/17 18:18 Random Vancomycin 19.5 ug/mL (0-40.0) 08/22/17 03:40 Hep Bs Antigen Non-reactive (Negative) 08/22/17 03:40 Hepatitis C Antibody Non-reactive (NonReactive) 08/22/17 03:40 Miscellaneous Test Flexitest 1 H 08/17/17 11:20 Blood Type O POSITIVE 08/28/17 11:56 Antibody Screen TNR 08/28/17 11:56 Crossmatch See Detail 08/28/17 11:56 Patient's hemoglobin dropped from 8.4-6.8 - Imaging and Cardiology Imaging and Cardiology: CT angio was done and no active bleeding or extravasation of blood.
[2017-08-28 13:38] LABS: ISTAT Base Excess 2; ISTAT HCO3 26.7; ISTAT PCO2 41.7 (35-45); ISTAT PH 7.415 (7.35-7.45); ISTAT PO2 338 (80-105); ISTAT SO2 100; ISTAT TCO2 28
[2017-08-28 13:58] LABS: INR 1.29 (0.87-1.13); Partial Thromboplastin Time 28.9 Sec. (24.2-36.6)
[2017-08-28] MEDS ORDERED: VITAMIN K (ADULT ONLY) SUB-Q ONE (14:12)
--- NOTE | 2017-08-28 14:28 | Gastroenterology Progress Note ---
Assessment and Plan - Patient Problems (1) Lower GI bleed Current Visit: Yes Status: Acute Plan to address problem: Treatment of bleeding will be supporting in this setting as she is not a candidate for colonoscopy. PRN transfusion, IVF support as you are doing. Will recheck coags and follow. (2) ARF (acute renal failure) Current Visit: Yes Status: Acute Qualifiers: Acute renal failure type: A (3) ESRD (end stage renal disease) on dialysis Current Visit: Yes Status: Acute (4) SBO (small bowel obstruction) Current Visit: Yes Status: Acute (5) Obesity, morbid, BMI 50 or higher Current Visit: No Status: Chronic Subjective Date of service: 08/28/17 Principal diagnosis: LGI bleeding Interval history: GI follow up was requested by Dr. Marie for rectal bleeding. The nurse reports a moderate amount of BRBPR. The patient is unable to give any history due to altered mental status. She has had a prolonged hospital course with exploratory lap, sepsis of intrabdominal origin and has a surgically placed J tube post exporatory lap. She was just moved to the ICU for deterioration of her respiratory status. Objective - Constitutional Vitals: Temp Pulse Resp BP Pulse Ox 98.7 F 104 H 22 106/59 100 08/28/17 04:45 08/28/17 04:45 08/28/17 04:45 08/28/17 04:45 08/28/17 04:45 General appearance: mild distress - Respiratory Respiratory effort: normal Respiratory: bilateral: CTA - Cardiovascular Rhythm: regular - Gastrointestinal General gastrointestinal: Present: soft, non-tender, normal bowel sounds, other (Midline surgical wound with dressing. J tube present) - Neurologic Neurological: disoriented - Labs CBC & Chem 7: 08/28/17 06:53 08/28/17 06:53 Labs: Laboratory Results - last 24 hr 08/22/17 08/27/17 08/28/17 08:50 17:27 02:13 WBC RBC Hgb Hct MCV MCH MCHC RDW Plt Count Add Manual Diff Total Counted Seg Neutrophils % Seg Neuts % (Manual) Band Neutrophils % Lymphocytes % (Manual) Reactive Lymphs % (Man) Monocytes % (Manual) Eosinophils % (Manual) Basophils % (Manual) Metamyelocytes % Myelocytes % Promyelocytes % Blast Cells % Nucleated RBC % Seg Neutrophils # Man Band Neutrophils # Lymphocytes # (Manual) Abs React Lymphs (Man) Monocytes # (Manual) Eosinophils # (Manual) Basophils # (Manual) Metamyelocytes # Myelocytes # Promyelocytes # Blast Cells # WBC Morphology Hypersegmented Neuts Hyposegmented Neuts Hypogranular Neuts Smudge Cells Toxic Granulation Toxic Vacuolation Dohle Bodies Pelger-Huet Anomaly Ariel Rods Platelet Estimate Clumped Platelets Plt Clumps, EDTA Large Platelets Giant Platelets Platelet Satelliting Plt Morphology Comment RBC Morphology Dimorphic RBCs Polychromasia Hypochromasia Poikilocytosis Anisocytosis Microcytosis Macrocytosis Spherocytes Pappenheimer Bodies Sickle Cells Target Cells Tear Drop Cells Ovalocytes Helmet Cells [place] Bodies [place] Rings Yusuf Cells Bite Cells Crenated Cell Elliptocytes Acanthocytes (Spur) Rouleaux Hemoglobin C Crystals Schistocytes Malaria parasites Jovanni Bodies Hem Pathologist Commnt PT INR APTT POC ABG pH POC ABG pCO2 POC ABG pO2 POC ABG HCO3 POC ABG Total CO2 POC ABG O2 Sat POC ABG Base Excess FiO2 Sodium Potassium Chloride Carbon Dioxide Anion Gap BUN Creatinine Estimated GFR BUN/Creatinine Ratio Glucose POC Glucose 151 H 155 H Calcium Phosphorus Magnesium Miscellaneous Test Flexitest 1 H Blood Type Antibody Screen VAN Antibody Screen Crossmatch 08/28/17 08/28/17 08/28/17 06:46 06:53 06:53 WBC 31.1 H RBC 2.26 L Hgb 6.8 L Hct 20.9 L MCV 93 MCH 30 MCHC 33 RDW 21.7 H Plt Count 384 Add Manual Diff Complete Total Counted 100 Seg Neutrophils % Remote Sensing Analyst Seg Neuts % (Manual) 83.0 H Band Neutrophils % 11.0 Lymphocytes % (Manual) 4.0 L Reactive Lymphs % (Man) 0 Monocytes % (Manual) 2.0 Eosinophils % (Manual) 0 Basophils % (Manual) 0 Metamyelocytes % 0 Myelocytes % 0 Promyelocytes % 0 Blast Cells % 0 Nucleated RBC % Not Reportable Seg Neutrophils # Man 25.8 H Band Neutrophils # 3.4 Lymphocytes # (Manual) 1.2 Abs React Lymphs (Man) 0.0 Monocytes # (Manual) 0.6 Eosinophils # (Manual) 0.0 Basophils # (Manual) 0.0 Metamyelocytes # 0.0 Myelocytes # 0.0 Promyelocytes # 0.0 Blast Cells # 0.0 WBC Morphology Not Reportable Hypersegmented Neuts Not Reportable Hyposegmented Neuts Not Reportable Hypogranular Neuts Not Reportable Smudge Cells Not Reportable Toxic Granulation Not Reportable Toxic Vacuolation Not Reportable Dohle Bodies Not Reportable Pelger-Huet Anomaly Not Reportable Ariel Rods Not Reportable Platelet Estimate Not Reportable Clumped Platelets Not Reportable Plt Clumps, EDTA Not Reportable Large Platelets Not Reportable Giant Platelets Not Reportable Platelet Satelliting Not Reportable Plt Morphology Comment Not Reportable RBC Morphology Not Reportable Dimorphic RBCs Not Reportable Polychromasia Not Reportable Hypochromasia Not Reportable Poikilocytosis Not Reportable Anisocytosis 1+ Microcytosis Not Reportable Macrocytosis Not Reportable Spherocytes Rare Pappenheimer Bodies Not Reportable Sickle Cells Not Reportable Target Cells 1+ Tear Drop Cells Not Reportable Ovalocytes Not Reportable Helmet Cells Not Reportable [place] Bodies Not Reportable [place] Rings Not Reportable [place] Cells Not Reportable Bite Cells Not Reportable Crenated Cell Not Reportable Elliptocytes Not Reportable Acanthocytes (Spur) Not Reportable Rouleaux Not Reportable Hemoglobin C Crystals Not Reportable Schistocytes Not Reportable Malaria parasites Not Reportable Jovanni Bodies Not Reportable Hem Pathologist Commnt No PT INR APTT POC ABG pH POC ABG pCO2 POC ABG pO2 POC ABG HCO3 POC ABG Total CO2 POC ABG O2 Sat POC ABG Base Excess FiO2 Sodium 142 Potassium 4.9 Chloride 101.1 Carbon Dioxide 23 Anion Gap 23 BUN 81 H Creatinine 3.4 H Estimated GFR 17 BUN/Creatinine Ratio 24 Glucose 218 H POC Glucose 230 H Calcium 8.4 Phosphorus 4.90 H Magnesium 2.10 Miscellaneous Test Blood Type Antibody Screen VAN Antibody Screen Crossmatch 08/28/17 08/28/17 08/28/17 11:56 13:05 13:29 WBC RBC Hgb Hct MCV MCH MCHC RDW Plt Count Add Manual Diff Total Counted Seg Neutrophils % Seg Neuts % (Manual) Band Neutrophils % Lymphocytes % (Manual) Reactive Lymphs % (Man) Monocytes % (Manual) Eosinophils % (Manual) Basophils % (Manual) Metamyelocytes % Myelocytes % Promyelocytes % Blast Cells % Nucleated RBC % Seg Neutrophils # Man Band Neutrophils # Lymphocytes # (Manual) Abs React Lymphs (Man) Monocytes # (Manual) Eosinophils # (Manual) Basophils # (Manual) Metamyelocytes # Myelocytes # Promyelocytes # Blast Cells # WBC Morphology Hypersegmented Neuts Hyposegmented Neuts Hypogranular Neuts Smudge Cells Toxic Granulation Toxic Vacuolation Dohle Bodies Pelger-Huet Anomaly Ariel Rods Platelet Estimate Clumped Platelets Plt Clumps, EDTA Large Platelets Giant Platelets Platelet Satelliting Plt Morphology Comment RBC Morphology Dimorphic RBCs Polychromasia Hypochromasia Poikilocytosis Anisocytosis Microcytosis Macrocytosis Spherocytes Pappenheimer Bodies Sickle Cells Target Cells Tear Drop Cells Ovalocytes Helmet Cells [place] Bodies [place] Rings Yusuf Cells Bite Cells Crenated Cell Elliptocytes Acanthocytes (Spur) Rouleaux Hemoglobin C Crystals Schistocytes Malaria parasites Jovanni Bodies Hem Pathologist Commnt PT 16.7 H INR 1.29 H APTT 28.9 POC ABG pH 7.415 POC ABG pCO2 41.7 POC ABG pO2 338 H POC ABG HCO3 26.7 POC ABG Total CO2 28 POC ABG O2 Sat 100 POC ABG Base Excess 2 FiO2 100 Sodium Potassium Chloride Carbon Dioxide Anion Gap BUN Creatinine Estimated GFR BUN/Creatinine Ratio Glucose POC Glucose Calcium Phosphorus Magnesium Miscellaneous Test Blood Type O POSITIVE Antibody Screen TNR VAN Antibody Screen Negative Crossmatch See Detail
[2017-08-28] MEDS ORDERED: TPN ADULT 1,800 ML IV SCH (20:00)
[2017-08-28] MEDS ORDERED: INTRALIPID 20% 250 ML IV SCH (20:00)
[2017-08-28 20:19] LABS: ISTAT Base Excess 2; ISTAT HCO3 25.7; ISTAT PCO2 35.4 (35-45); ISTAT PH 7.469 (7.35-7.45); ISTAT PO2 240 (80-105); ISTAT SO2 100; ISTAT TCO2 27
[2017-08-28] MEDS ORDERED: DUONEB *Not for PRN Use IH ONE (20:33)
--- NOTE | 2017-08-28 21:21 | Progress Note ---
Assessment and Plan - Patient Problems (1) Leukocytosis Current Visit: Yes Status: Acute Qualifiers: Leukocytosis type: L Plan to address problem: See notes above. make sure that PD access is clean also. see notes. Probably infection from the infected PD catheter. improving. (2) Anemia Current Visit: Yes Status: Acute Qualifiers: Anemia type: A Iron deficiency anemia type: I Vitamin B12 deficiency anemia type: V Folate deficiency anemia type: F Bone marrow failure anemia type: B Hemolytic anemia type: H Other causes of anemia: O Chronic kidney disease stage: C Plan to address problem: see notes , monitor labs,. see notes above. continue to monitor labs with you. blood transfusion. Subjective Date of service: 08/28/17 Principal diagnosis: LGI bleeding Interval history: Patient seen today/examined, labs reviewed, case d/w she, and family.complaints of abdominal pain. Patient resting in bed in the ICU, post vascular procedure. labs reviewed, Reactive thrombocytosis, anemia of CD, leukocytosis from infection vs inflamatory process. Patient seen/examined, in bed in the ICU, on the vent post surgery.Labs reviewed , notes reviewed. will continue to monitor labs/patient with you. Replacement transfusion, if /when indicated. patient seen/examined, SBP75, on pressors., lethargic, on the vent, labs reviewed, wbc 39,000 Patient seen/examined, case reviewed, d/w her sister at the bed side. Patient seen/examined, labs reviewed, notes reviewed. severe septic shock from infected PD catheter The high wbc is all infection related. H?H low, and may get replacement transfusion with the next HD. Prognosis remain quite poor. Patient seen/examined, extubated, now on V Mask. labs reviewed. patient seen/examined, resting in bed, still some what lethargic . labs reviewed. Patient seen/examined, resting in bed., some difficulty with breathing./ lethargic. patient seen/examined, resting in bed, looked much better labs reviewed, and fair over all. Patient seen/examined, resting in bed, labs reviewed, case d/w her. Patient seen/examined, resting in bed on BIPAP., labs reviewed. patient seen/examined, resting in bed, on Bipap.labs reviewed, fairly stable. Patient seen today, resting in bed, labs reviewed, H/H low, and transfusion already ordered. Objective - Constitutional Vitals: Vital Signs - 12hr 08/28/17 08/28/17 08/28/17 15:45 16:00 16:15 Temperature 98.4 F 98.4 F Pulse Rate 106 H 102 H 103 H Pulse Rate [ Bilateral Throughout] Respiratory 24 Rate Respiratory Rate [Bilateral Throughout] Blood Pressure 111/39 122/38 96/63 O2 Sat by Pulse Oximetry 08/28/17 08/28/17 08/28/17 16:30 16:45 17:00 Temperature Pulse Rate 108 H 107 H 110 H Pulse Rate [ Bilateral Throughout] Respiratory Rate Respiratory Rate [Bilateral Throughout] Blood Pressure 123/67 116/79 116/66 O2 Sat by Pulse Oximetry 08/28/17 08/28/17 08/28/17 17:05 17:15 17:20 Temperature 98.4 F 98.2 F Pulse Rate 110 H 109 H 109 H Pulse Rate [ Bilateral Throughout] Respiratory 24 24 Rate Respiratory Rate [Bilateral Throughout] Blood Pressure 116/66 92/60 92/60 O2 Sat by Pulse Oximetry 08/28/17 08/28/17 08/28/17 17:30 17:35 17:40 Temperature 98.2 F 98.2 F Pulse Rate 111 H 111 H 111 H Pulse Rate [ Bilateral Throughout] Respiratory 24 24 Rate Respiratory Rate [Bilateral Throughout] Blood Pressure 133/100 133/100 133/100 O2 Sat by Pulse Oximetry 08/28/17 08/28/17 08/28/17 17:45 17:55 18:00 Temperature 98.2 F Pulse Rate 107 H 107 H 108 H Pulse Rate [ Bilateral Throughout] Respiratory 24 Rate Respiratory Rate [Bilateral Throughout] Blood Pressure 98/56 98/56 102/62 O2 Sat by Pulse Oximetry 08/28/17 08/28/17 08/28/17 18:10 18:15 18:20 Temperature 98.2 F 98.2 F Pulse Rate 110 H 110 H 108 H Pulse Rate [ Bilateral Throughout] Respiratory 24 24 24 Rate Respiratory Rate [Bilateral Throughout] Blood Pressure 113/74 113/74 O2 Sat by Pulse 96 Oximetry 08/28/17 08/28/17 08/28/17 18:30 18:45 19:00 Temperature 98.3 F 98.3 F Pulse Rate 109 H 108 H 108 H Pulse Rate [ Bilateral Throughout] Respiratory 24 24 Rate Respiratory Rate [Bilateral Throughout] Blood Pressure 108/45 128/88 156/77 O2 Sat by Pulse Oximetry 08/28/17 08/28/17 20:38 20:40 Temperature Pulse Rate 104 H Pulse Rate [ 104 H Bilateral Throughout] Respiratory 25 H Rate Respiratory 25 H Rate [Bilateral Throughout] Blood Pressure O2 Sat by Pulse 97 Oximetry General appearance: Present: mild distress, well-nourished - EENT Eyes: PERRL, EOM intact ENT: hearing intact, clear oral mucosa Ears: bilateral: normal - Neck Neck: supple, normal ROM - Respiratory Respiratory: bilateral: diminished - Breasts Breasts: deferred - Cardiovascular Rhythm: regular Heart Sounds: Present: S1 & S2. Absent: gallop, rub Extremities: pulses intact, No edema, normal color, Full ROM - Gastrointestinal General gastrointestinal: Present: soft, non-tender, non-distended, normal bowel sounds Rectal Exam: deferred - Genitourinary Female genitourinary: deferred - Integumentary Integumentary: clear, warm, dry - Musculoskeletal Musculoskeletal: 1, strength equal bilaterally - Neurologic Neurologic: moves all extremities - Psychiatric Psychiatric: appropriate mood/affect, memory intact - Labs CBC & Chem 7: 08/28/17 06:53 08/28/17 06:53 Labs: Abnormal lab results 08/22/17 08/28/17 08/28/17 Range/Units 08:50 02:13 06:46 WBC (4.5-11.0) K/mm3 RBC (3.65-5.03) M/mm3 Hgb (10.1-14.3) gm/dl Hct (30.3-42.9) % RDW (13.2-15.2) % Seg Neuts % (Manual) (40.0-70.0) % Lymphocytes % (Manual) (13.4-35.0) % Seg Neutrophils # Man (1.8-7.7) K/mm3 PT (12.2-14.9) Sec. INR (0.87-1.13) POC ABG pH (7.35-7.45) POC ABG pO2 (80-105) BUN (7-17) mg/dL Creatinine (0.7-1.2) mg/dL Glucose (65-100) mg/dL POC Glucose 155 H 230 H (70-105) Phosphorus (2.5-4.5) mg/dL Miscellaneous Test Flexitest 1 H Crossmatch 08/28/17 08/28/17 08/28/17 Range/Units 06:53 06:53 08:19 WBC 31.1 H (4.5-11.0) K/mm3 RBC 2.26 L (3.65-5.03) M/mm3 Hgb 6.8 L (10.1-14.3) gm/dl Hct 20.9 L (30.3-42.9) % RDW 21.7 H (13.2-15.2) % Seg Neuts % (Manual) 83.0 H (40.0-70.0) % Lymphocytes % (Manual) 4.0 L (13.4-35.0) % Seg Neutrophils # Man 25.8 H (1.8-7.7) K/mm3 PT (12.2-14.9) Sec. INR (0.87-1.13) POC ABG pH (7.35-7.45) POC ABG pO2 (80-105) BUN 81 H (7-17) mg/dL Creatinine 3.4 H (0.7-1.2) mg/dL Glucose 218 H (65-100) mg/dL POC Glucose 239 H (70-105) Phosphorus 4.90 H (2.5-4.5) mg/dL Miscellaneous Test Crossmatch 08/28/17 08/28/17 08/28/17 Range/Units 11:56 13:05 13:29 WBC (4.5-11.0) K/mm3 RBC (3.65-5.03) M/mm3 Hgb (10.1-14.3) gm/dl Hct (30.3-42.9) % RDW (13.2-15.2) % Seg Neuts % (Manual) (40.0-70.0) % Lymphocytes % (Manual) (13.4-35.0) % Seg Neutrophils # Man (1.8-7.7) K/mm3 PT 16.7 H (12.2-14.9) Sec. INR 1.29 H (0.87-1.13) POC ABG pH (7.35-7.45) POC ABG pO2 338 H (80-105) BUN (7-17) mg/dL Creatinine (0.7-1.2) mg/dL Glucose (65-100) mg/dL POC Glucose (70-105) Phosphorus (2.5-4.5) mg/dL Miscellaneous Test Crossmatch See Detail 08/28/17 Range/Units 19:20 WBC (4.5-11.0) K/mm3 RBC (3.65-5.03) M/mm3 Hgb (10.1-14.3) gm/dl Hct (30.3-42.9) % RDW (13.2-15.2) % Seg Neuts % (Manual) (40.0-70.0) % Lymphocytes % (Manual) (13.4-35.0) % Seg Neutrophils # Man (1.8-7.7) K/mm3 PT (12.2-14.9) Sec. INR (0.87-1.13) POC ABG pH 7.469 H (7.35-7.45) POC ABG pO2 240 H (80-105) BUN (7-17) mg/dL Creatinine (0.7-1.2) mg/dL Glucose (65-100) mg/dL POC Glucose (70-105) Phosphorus (2.5-4.5) mg/dL Miscellaneous Test Crossmatch
[2017-08-28] MEDS: LEVOPHED 8 MG in NACL 0.9% 250ML 242 ML IV SCH (21:29)
[2017-08-28 23:06] LABS: Hematocrit 37.2 % (30.3-42.9); Hemoglobin 11.8 gm/dl (10.1-14.3)
[2017-08-28 23:15] LABS: INR 1.11 (0.87-1.13)
[2017-08-29] MEDS: DUONEB *Not for PRN Use IH SCH ×5 (01:52→19:53)
[2017-08-29 05:35] LABS: Hematocrit 35.1 % (30.3-42.9); Hemoglobin 11.6 gm/dl (10.1-14.3); Mean Corpuscular HGB Conc 33 % (30-34); Mean Corpuscular Hemoglobin 28 pg (28-32); Mean Corpuscular Volume 86 fl (79-97); Platelet Count 367 K/mm3 (140-440); Red Blood Count 4.08 M/mm3 (3.65-5.03)
[2017-08-29 05:53] LABS: Calcium 8.8 mg/dL (8.4-10.2); Chloride 101.9 mmol/L (98-107); Magnesium 1.8 mg/dL (1.7-2.3); Phosphorous 3.2 mg/dL (2.5-4.5); Potassium 3.8 mmol/L (3.6-5.0)
[2017-08-29 06:21] LABS: Red Cell Distribution Width 23.1 % (13.2-15.2)
[2017-08-29 06:22] LABS: White Blood Count 44.9 K/mm3 (4.5-11.0)
[2017-08-29] MEDS: PROTONIX IV SCH (06:54)
--- NOTE | 2017-08-29 07:44 | Progress Note ---
Assessment and Plan 62 y.o. F s/p ex-lap, lysis of adhesions, G tube placement, MERVIN drain placement: POD 11 S/p transfer to the ICU: GI bleed: one small epidsode of rectal bleeding overnight. Pt is s/p 3 units prbc with adequate response. Rec. trend h/h. wean down pressor. GI following- scope possible when stable Source: unlikely upper GI since G tube is draining bilious fluid. CT abd pelvis angio: no blush of contrast. gastric perforation: poor overall nutritional status making the defect difficult to re-seal despite intra-luminal decompression and external drainage. Mervin now brown/serous. Record MERVIN output and G tube output in order to assess if she is adequately being decompressed. . Monitor output and color. Nursing to strip MERVIN during shift. Likely prolonged healing time of small gastric perforation. Keep NPO. No manipulation of NG or G or MERVIN. Keep NG to low intermit. wall sunction. No manipulation. No flushes. No medications Prolonged healing anticipated due to poor nutrition and steroids. Will not start vit A supplementation due to possible vit A toxicity from supplementation due to renal failure. -continue PPI ID: Covering Gut grace 2/ perforation: merrom -completed. diflucan - Follow up cultures from abdominal wound. Leukocytosis worsening. Rec. change fem line when stable. if temp rec lr culture TPN for nutrition Resp: s/p extubation. Venti mask, now resp distress. continues to require bipap. f/u abgs renal failure: HD per renal. will defer to renal for dialysis and fluid/ electrolyte management. Sacral wound and RLE wound: wound care following. GI proph: PPI DVT proph: rec hold hep subq. SCDS - Patient Problems (1) Peritonitis (acute) generalized Current Visit: Yes Status: Acute Subjective Narrative: Transferred to ICU yesterday after having hypotension and melena. Overnight pt recieved 3 units prbc. Per nurse one small amount of rectal bleeding overnight. pt continues to require the bipap. She is able to answer yes or no questions but remains lethargic. Levo: 10 G tube bilious 360 cc MERVIN: 145 cc/24 hrs. 20cc overnight- more serosang vs drk red. NG x ivan x Objective Vital Signs - 12hr 08/28/17 08/28/17 08/28/17 19:45 20:00 20:15 Temperature Pulse Rate 103 H 104 H 105 H Pulse Rate [ Bilateral Throughout] Pulse Rate [ 103 H From Monitor] Respiratory 27 H 22 23 Rate Respiratory Rate [Bilateral Throughout] Blood Pressure 103/73 129/26 137/70 O2 Sat by Pulse 82 L 95 100 Oximetry 08/28/17 08/28/17 08/28/17 20:31 20:38 20:40 Temperature Pulse Rate 101 H 104 H Pulse Rate [ 104 H Bilateral Throughout] Pulse Rate [ From Monitor] Respiratory 22 25 H Rate Respiratory 25 H Rate [Bilateral Throughout] Blood Pressure 128/46 O2 Sat by Pulse 100 97 Oximetry 08/28/17 08/28/17 08/28/17 20:46 20:49 21:01 Temperature Pulse Rate 104 H 107 H Pulse Rate [ 102 H Bilateral Throughout] Pulse Rate [ From Monitor] Respiratory 21 20 Rate Respiratory 25 H Rate [Bilateral Throughout] Blood Pressure 135/114 O2 Sat by Pulse 96 49 L Oximetry 08/28/17 08/28/17 08/28/17 21:15 21:31 21:45 Temperature Pulse Rate 104 H 104 H 104 H Pulse Rate [ Bilateral Throughout] Pulse Rate [ From Monitor] Respiratory 22 21 23 Rate Respiratory Rate [Bilateral Throughout] Blood Pressure 117/66 60/40 104/67 O2 Sat by Pulse 96 92 92 Oximetry 08/28/17 08/28/17 08/28/17 22:00 22:15 22:30 Temperature 98.5 F Pulse Rate 104 H 103 H 105 H Pulse Rate [ Bilateral Throughout] Pulse Rate [ From Monitor] Respiratory 22 22 21 Rate Respiratory Rate [Bilateral Throughout] Blood Pressure 122/79 118/73 126/63 O2 Sat by Pulse 100 99 89 Oximetry 08/28/17 08/28/17 08/28/17 22:45 23:01 23:11 Temperature Pulse Rate 106 H 108 H 106 H Pulse Rate [ Bilateral Throughout] Pulse Rate [ From Monitor] Respiratory 24 20 24 Rate Respiratory Rate [Bilateral Throughout] Blood Pressure 127/71 106/34 106/34 O2 Sat by Pulse 97 89 93 Oximetry 08/28/17 08/28/17 08/28/17 23:15 23:17 23:30 Temperature Pulse Rate 105 H 105 H Pulse Rate [ Bilateral Throughout] Pulse Rate [ 107 H From Monitor] Respiratory 23 22 21 Rate Respiratory Rate [Bilateral Throughout] Blood Pressure 120/64 107/71 O2 Sat by Pulse 91 92 92 Oximetry 08/28/17 08/29/17 08/29/17 23:45 00:00 00:15 Temperature Pulse Rate 108 H 106 H 107 H Pulse Rate [ Bilateral Throughout] Pulse Rate [ From Monitor] Respiratory 22 23 23 Rate Respiratory Rate [Bilateral Throughout] Blood Pressure 116/68 102/45 123/73 O2 Sat by Pulse 94 91 83 L Oximetry 08/29/17 08/29/17 08/29/17 00:27 00:30 00:45 Temperature Pulse Rate 106 H 108 H 110 H Pulse Rate [ Bilateral Throughout] Pulse Rate [ From Monitor] Respiratory 24 23 22 Rate Respiratory Rate [Bilateral Throughout] Blood Pressure 124/58 111/68 O2 Sat by Pulse 83 L 80 L Oximetry 08/29/17 08/29/17 08/29/17 01:01 01:15 01:31 Temperature Pulse Rate 108 H 113 H 108 H Pulse Rate [ Bilateral Throughout] Pulse Rate [ From Monitor] Respiratory 23 23 24 Rate Respiratory Rate [Bilateral Throughout] Blood Pressure 98/71 94/70 125/79 O2 Sat by Pulse 83 L 90 95 Oximetry 08/29/17 08/29/17 08/29/17 01:45 01:52 02:01 Temperature Pulse Rate 109 H 108 H Pulse Rate [ 97 H Bilateral Throughout] Pulse Rate [ From Monitor] Respiratory 24 23 Rate Respiratory 18 Rate [Bilateral Throughout] Blood Pressure 116/74 113/67 O2 Sat by Pulse 97 83 L Oximetry 08/29/17 08/29/17 08/29/17 02:05 02:15 02:30 Temperature Pulse Rate 108 H 107 H Pulse Rate [ 103 H Bilateral Throughout] Pulse Rate [ From Monitor] Respiratory 23 25 H Rate Respiratory 18 Rate [Bilateral Throughout] Blood Pressure 113/67 126/64 O2 Sat by Pulse 86 83 L Oximetry 08/29/17 08/29/17 08/29/17 02:45 03:01 03:15 Temperature Pulse Rate 109 H 112 H 108 H Pulse Rate [ Bilateral Throughout] Pulse Rate [ From Monitor] Respiratory 28 H 25 H 24 Rate Respiratory Rate [Bilateral Throughout] Blood Pressure 127/96 91/66 122/70 O2 Sat by Pulse 82 L 85 78 L Oximetry 08/29/17 08/29/17 08/29/17 03:31 03:45 04:00 Temperature Pulse Rate 110 H 107 H 109 H Pulse Rate [ Bilateral Throughout] Pulse Rate [ 104 H From Monitor] Respiratory 23 23 22 Rate Respiratory Rate [Bilateral Throughout] Blood Pressure 123/79 122/83 126/85 O2 Sat by Pulse 94 86 98 Oximetry 08/29/17 08/29/17 08/29/17 04:15 04:27 04:31 Temperature 98.8 F Pulse Rate 109 H 108 H Pulse Rate [ Bilateral Throughout] Pulse Rate [ From Monitor] Respiratory 25 H 22 Rate Respiratory Rate [Bilateral Throughout] Blood Pressure 116/46 126/66 O2 Sat by Pulse 96 98 Oximetry 08/29/17 08/29/17 08/29/17 04:40 04:45 05:00 Temperature Pulse Rate 107 H 106 H 109 H Pulse Rate [ Bilateral Throughout] Pulse Rate [ From Monitor] Respiratory 25 H 25 H 25 H Rate Respiratory Rate [Bilateral Throughout] Blood Pressure 148/57 120/62 118/77 O2 Sat by Pulse 99 89 97 Oximetry 08/29/17 08/29/17 08/29/17 05:15 05:31 05:45 Temperature Pulse Rate 107 H 106 H 107 H Pulse Rate [ Bilateral Throughout] Pulse Rate [ From Monitor] Respiratory 23 23 23 Rate Respiratory Rate [Bilateral Throughout] Blood Pressure 130/70 130/86 130/86 O2 Sat by Pulse 96 97 100 Oximetry 08/29/17 08/29/17 08/29/17 06:00 06:15 06:31 Temperature Pulse Rate 108 H 106 H 107 H Pulse Rate [ Bilateral Throughout] Pulse Rate [ From Monitor] Respiratory 22 22 22 Rate Respiratory Rate [Bilateral Throughout] Blood Pressure 128/65 123/70 133/74 O2 Sat by Pulse 99 96 98 Oximetry - General physical appearance moderate distress, obese - Respiratory other (increased resp effort) - Abdomen soft, other (grimace with palp. soft, obese, no guarding. midline wound- packing removed saturated with serosang discharge. wound inferior and superior portions: no new clot. no active bleeding. irrigated incision and repacked with kerlex. Prev pd cath site cdi) - Neurologic confused - Labs 08/29/17 12:30 08/29/17 04:30 Diabetes panel 08/28/17 08/29/17 Range/Units 06:53 04:30 Sodium 142 144 (137-145) mmol/L Potassium 4.9 3.8 D (3.6-5.0) mmol/L Chloride 101.1 101.9 (98-107) mmol/L Carbon Dioxide 23 24 (22-30) mmol/L BUN 81 H 61 H (7-17) mg/dL Creatinine 3.4 H 2.4 H (0.7-1.2) mg/dL Glucose 218 H 226 H (65-100) mg/dL Calcium 8.4 8.8 (8.4-10.2) mg/dL Calcium panel 08/28/17 08/29/17 Range/Units 06:53 04:30 Calcium 8.4 8.8 (8.4-10.2) mg/dL Phosphorus 4.90 H 3.20 D (2.5-4.5) mg/dL Pituitary panel 08/28/17 08/29/17 Range/Units 06:53 04:30 Sodium 142 144 (137-145) mmol/L Potassium 4.9 3.8 D (3.6-5.0) mmol/L Chloride 101.1 101.9 (98-107) mmol/L Carbon Dioxide 23 24 (22-30) mmol/L BUN 81 H 61 H (7-17) mg/dL Creatinine 3.4 H 2.4 H (0.7-1.2) mg/dL Glucose 218 H 226 H (65-100) mg/dL Calcium 8.4 8.8 (8.4-10.2) mg/dL Adrenal panel 08/28/17 08/29/17 Range/Units 06:53 04:30 Sodium 142 144 (137-145) mmol/L Potassium 4.9 3.8 D (3.6-5.0) mmol/L Chloride 101.1 101.9 (98-107) mmol/L Carbon Dioxide 23 24 (22-30) mmol/L BUN 81 H 61 H (7-17) mg/dL Creatinine 3.4 H 2.4 H (0.7-1.2) mg/dL Glucose 218 H 226 H (65-100) mg/dL Calcium 8.4 8.8 (8.4-10.2) mg/dL
[2017-08-29 09:02] LABS: Basophils % (Manual) 0 % (0.0-1.8); Blastocytes % (Manual) 0 %; Eosinophils % (Manual) 0 % (0.0-4.3)
--- NOTE | 2017-08-29 09:02 | Progress Note ---
Assessment and Plan - Patient Problems (1) ESRD (end stage renal disease) on dialysis Current Visit: Yes Status: Acute Plan to address problem: Continue HD, MWF schedule. Patient is fluid overloaded. Isolated UF today to remove 3 Lts as tolerated. Patient is on TPN. (2) Hyperkalemia Current Visit: Yes Status: Acute Plan to address problem: K level is better. (3) Anemia Current Visit: No Status: Chronic Qualifiers: Anemia type: due to chronic kidney disease Iron deficiency anemia type: I Vitamin B12 deficiency anemia type: V Folate deficiency anemia type: F Bone marrow failure anemia type: B Hemolytic anemia type: H Other causes of anemia: O Chronic kidney disease stage: on chronic dialysis Qualified Code(s ): N18.6 - End stage renal disease; D63.1 - Anemia in chronic kidney disease; Z99.2 - Dependence on renal dialysis Plan to address problem: Epogen. S/p PRBC. (4) Hypotension Current Visit: Yes Status: Chronic Qualifiers: Hypotension type: H Trimester: T Plan to address problem: On Levophed. (5) Leukocytosis Current Visit: Yes Status: Acute Qualifiers: Leukocytosis type: unspecified Qualified Code(s): D72.829 - Elevated white blood cell count, unspecified (6) Acute respiratory failure with hypoxemia Current Visit: Yes Status: Acute Plan to address problem: On BIPAP. (7) Sepsis Current Visit: Yes Status: Acute Qualifiers: Sepsis type: S Subjective Date of service: 08/29/17 Principal diagnosis: LGI bleeding Interval history: Patient was seen and examined at the bedside. Patient was transferred to ICU yesterday for respiratory distress. Objective - Vital Signs Vital signs: Vital Signs - 12hr 08/28/17 08/28/17 08/28/17 21:15 21:31 21:45 Temperature Pulse Rate 104 H 104 H 104 H Pulse Rate [ Bilateral Throughout] Pulse Rate [ From Monitor] Respiratory 22 21 23 Rate Respiratory Rate [Bilateral Throughout] Blood Pressure 117/66 60/40 104/67 O2 Sat by Pulse 96 92 92 Oximetry 08/28/17 08/28/17 08/28/17 22:00 22:15 22:30 Temperature 98.5 F Pulse Rate 104 H 103 H 105 H Pulse Rate [ Bilateral Throughout] Pulse Rate [ From Monitor] Respiratory 22 22 21 Rate Respiratory Rate [Bilateral Throughout] Blood Pressure 122/79 118/73 126/63 O2 Sat by Pulse 100 99 89 Oximetry 08/28/17 08/28/17 08/28/17 22:45 23:01 23:11 Temperature Pulse Rate 106 H 108 H 106 H Pulse Rate [ Bilateral Throughout] Pulse Rate [ From Monitor] Respiratory 24 20 24 Rate Respiratory Rate [Bilateral Throughout] Blood Pressure 127/71 106/34 106/34 O2 Sat by Pulse 97 89 93 Oximetry 08/28/17 08/28/17 08/28/17 23:15 23:17 23:30 Temperature Pulse Rate 105 H 105 H Pulse Rate [ Bilateral Throughout] Pulse Rate [ 107 H From Monitor] Respiratory 23 22 21 Rate Respiratory Rate [Bilateral Throughout] Blood Pressure 120/64 107/71 O2 Sat by Pulse 91 92 92 Oximetry 08/28/17 08/29/17 08/29/17 23:45 00:00 00:15 Temperature Pulse Rate 108 H 106 H 107 H Pulse Rate [ Bilateral Throughout] Pulse Rate [ From Monitor] Respiratory 22 23 23 Rate Respiratory Rate [Bilateral Throughout] Blood Pressure 116/68 102/45 123/73 O2 Sat by Pulse 94 91 83 L Oximetry 08/29/17 08/29/17 08/29/17 00:27 00:30 00:45 Temperature Pulse Rate 106 H 108 H 110 H Pulse Rate [ Bilateral Throughout] Pulse Rate [ From Monitor] Respiratory 24 23 22 Rate Respiratory Rate [Bilateral Throughout] Blood Pressure 124/58 111/68 O2 Sat by Pulse 83 L 80 L Oximetry 08/29/17 08/29/17 08/29/17 01:01 01:15 01:31 Temperature Pulse Rate 108 H 113 H 108 H Pulse Rate [ Bilateral Throughout] Pulse Rate [ From Monitor] Respiratory 23 23 24 Rate Respiratory Rate [Bilateral Throughout] Blood Pressure 98/71 94/70 125/79 O2 Sat by Pulse 83 L 90 95 Oximetry 08/29/17 08/29/17 08/29/17 01:45 01:52 02:01 Temperature Pulse Rate 109 H 108 H Pulse Rate [ 97 H Bilateral Throughout] Pulse Rate [ From Monitor] Respiratory 24 23 Rate Respiratory 18 Rate [Bilateral Throughout] Blood Pressure 116/74 113/67 O2 Sat by Pulse 97 83 L Oximetry 08/29/17 08/29/17 08/29/17 02:05 02:15 02:30 Temperature Pulse Rate 108 H 107 H Pulse Rate [ 103 H Bilateral Throughout] Pulse Rate [ From Monitor] Respiratory 23 25 H Rate Respiratory 18 Rate [Bilateral Throughout] Blood Pressure 113/67 126/64 O2 Sat by Pulse 86 83 L Oximetry 08/29/17 08/29/17 08/29/17 02:45 03:01 03:15 Temperature Pulse Rate 109 H 112 H 108 H Pulse Rate [ Bilateral Throughout] Pulse Rate [ From Monitor] Respiratory 28 H 25 H 24 Rate Respiratory Rate [Bilateral Throughout] Blood Pressure 127/96 91/66 122/70 O2 Sat by Pulse 82 L 85 78 L Oximetry 08/29/17 08/29/17 08/29/17 03:31 03:45 04:00 Temperature Pulse Rate 110 H 107 H 109 H Pulse Rate [ Bilateral Throughout] Pulse Rate [ 104 H From Monitor] Respiratory 23 23 22 Rate Respiratory Rate [Bilateral Throughout] Blood Pressure 123/79 122/83 126/85 O2 Sat by Pulse 94 86 98 Oximetry 08/29/17 08/29/17 08/29/17 04:15 04:27 04:31 Temperature 98.8 F Pulse Rate 109 H 108 H Pulse Rate [ Bilateral Throughout] Pulse Rate [ From Monitor] Respiratory 25 H 22 Rate Respiratory Rate [Bilateral Throughout] Blood Pressure 116/46 126/66 O2 Sat by Pulse 96 98 Oximetry 08/29/17 08/29/17 08/29/17 04:40 04:45 05:00 Temperature Pulse Rate 107 H 106 H 109 H Pulse Rate [ Bilateral Throughout] Pulse Rate [ From Monitor] Respiratory 25 H 25 H 25 H Rate Respiratory Rate [Bilateral Throughout] Blood Pressure 148/57 120/62 118/77 O2 Sat by Pulse 99 89 97 Oximetry 08/29/17 08/29/17 08/29/17 05:15 05:31 05:45 Temperature Pulse Rate 107 H 106 H 107 H Pulse Rate [ Bilateral Throughout] Pulse Rate [ From Monitor] Respiratory 23 23 23 Rate Respiratory Rate [Bilateral Throughout] Blood Pressure 130/70 130/86 130/86 O2 Sat by Pulse 96 97 100 Oximetry 08/29/17 08/29/17 08/29/17 06:00 06:15 06:31 Temperature Pulse Rate 108 H 106 H 107 H Pulse Rate [ Bilateral Throughout] Pulse Rate [ From Monitor] Respiratory 22 22 22 Rate Respiratory Rate [Bilateral Throughout] Blood Pressure 128/65 123/70 133/74 O2 Sat by Pulse 99 96 98 Oximetry 08/29/17 08/29/17 08/29/17 06:45 07:00 07:15 Temperature Pulse Rate 107 H 106 H 108 H Pulse Rate [ Bilateral Throughout] Pulse Rate [ From Monitor] Respiratory 22 23 22 Rate Respiratory Rate [Bilateral Throughout] Blood Pressure 132/75 141/74 141/74 O2 Sat by Pulse 99 100 99 Oximetry 08/29/17 08/29/17 08/29/17 07:30 07:45 08:00 Temperature Pulse Rate 107 H 107 H Pulse Rate [ 108 H Bilateral Throughout] Pulse Rate [ From Monitor] Respiratory 23 25 H Rate Respiratory 24 Rate [Bilateral Throughout] Blood Pressure 132/72 138/61 O2 Sat by Pulse 96 99 Oximetry 08/29/17 08/29/17 08/29/17 08:01 08:15 08:30 Temperature Pulse Rate 107 H 115 H 109 H Pulse Rate [ Bilateral Throughout] Pulse Rate [ From Monitor] Respiratory 23 21 22 Rate Respiratory Rate [Bilateral Throughout] Blood Pressure 132/66 122/67 125/71 O2 Sat by Pulse 94 100 99 Oximetry 08/29/17 08/29/17 08/29/17 08:33 08:45 09:00 Temperature Pulse Rate 109 H 107 H 108 H Pulse Rate [ Bilateral Throughout] Pulse Rate [ From Monitor] Respiratory 22 22 24 Rate Respiratory Rate [Bilateral Throughout] Blood Pressure 125/71 112/72 124/74 O2 Sat by Pulse 100 99 100 Oximetry 08/29/17 09:01 Temperature Pulse Rate Pulse Rate [ 107 H Bilateral Throughout] Pulse Rate [ From Monitor] Respiratory Rate Respiratory 18 Rate [Bilateral Throughout] Blood Pressure O2 Sat by Pulse Oximetry - General Appearance General appearance: well-developed, appears stated age, obese, other (on BIPAP) EENT: ATNC Neck: supple Respiratory: Present: Clear to Ascultation Cardiology: regular, S1S2, no murmurs Gastrointestinal: normoactive bowel sounds, no tenderness, obese Integumentary: no rash Neurologic: other (patient is not able to follow any commands) Musculoskeletal: other (2+ edema of both LEs noted, right groin hemodialysis catheter) - Lab 08/29/17 04:30 08/29/17 04:30 Most recent lab results Calcium 8.8 mg/dL (8.4-10.2) 08/29/17 04:30 Phosphorus 3.20 mg/dL (2.5-4.5) D 08/29/17 04:30 Magnesium 1.80 mg/dL (1.7-2.3) 08/29/17 04:30
[2017-08-29 09:03] LABS: Anisocytosis 1+; Hypochromasia 1+
[2017-08-29] MEDS ORDERED: NACL 0.9% 100 ML IV PRN ×3 (09:11→13:14)
[2017-08-29 09:20] LABS: Giant Platelets Few
[2017-08-29 09:21] LABS: Diff Status Complete; Ovalocytes 1+; Platelet Estimate Cons
[2017-08-29 09:34] LABS: Smudge Cells 1+
--- NOTE | 2017-08-29 09:56 | Gastroenterology Progress Note ---
<IRIS CABALLERO - Last Filed: 08/29/17 09:58> Assessment and Plan 1.lower GI bleed -HGB 11.6-stable -continue to monitor H/H and transfuse as needed -no active sign of bleeding -no recommendations for a colonoscopy due to current medical condition, unless overt bleeding develops -will sign off, please reconsult if needed \ Subjective Date of service: 08/29/17 Principal diagnosis: LGI bleeding Interval history: Patient resting in bed. Family at bedside. No signs of active bleeding overnight or this am. Objective - Constitutional Vitals: Temp Pulse Resp BP Pulse Ox 98.6 F 107 H 18 124/74 100 08/29/17 08:00 08/29/17 09:01 08/29/17 09:01 08/29/17 09:00 08/29/17 09:00 General appearance: no acute distress, other (on bipap) - Respiratory Respiratory: bilateral: CTA (anterior) - Cardiovascular Rhythm: regular Heart Sounds: Present: S1 & S2 - Gastrointestinal General gastrointestinal: Present: soft, non-distended, normal bowel sounds, other (midline surgical wound with dressing, J tube) - Labs CBC & Chem 7: 08/29/17 04:30 08/29/17 04:30 Labs: Laboratory Results - last 24 hr 08/22/17 08/28/17 08/28/17 08:50 08:19 11:56 WBC RBC Hgb Hct MCV MCH MCHC RDW Plt Count Add Manual Diff Total Counted Seg Neuts % (Manual) Band Neutrophils % Lymphocytes % (Manual) Reactive Lymphs % (Man) Monocytes % (Manual) Eosinophils % (Manual) Basophils % (Manual) Metamyelocytes % Myelocytes % Promyelocytes % Blast Cells % Nucleated RBC % Seg Neutrophils # Man Band Neutrophils # Lymphocytes # (Manual) Abs React Lymphs (Man) Monocytes # (Manual) Eosinophils # (Manual) Basophils # (Manual) Metamyelocytes # Myelocytes # Promyelocytes # Blast Cells # WBC Morphology Hypersegmented Neuts Hyposegmented Neuts Hypogranular Neuts Smudge Cells Toxic Granulation Toxic Vacuolation Dohle Bodies Pelger-Huet Anomaly Ariel Rods Platelet Estimate Clumped Platelets Plt Clumps, EDTA Large Platelets Giant Platelets Platelet Satelliting Plt Morphology Comment RBC Morphology Dimorphic RBCs Polychromasia Hypochromasia Poikilocytosis Anisocytosis Microcytosis Macrocytosis Spherocytes Pappenheimer Bodies Sickle Cells Target Cells Tear Drop Cells Ovalocytes Helmet Cells [place] Bodies [place] Rings [place] Cells Bite Cells Crenated Cell Elliptocytes Acanthocytes (Spur) Rouleaux Hemoglobin C Crystals Schistocytes Malaria parasites Jovanni Bodies Hem Pathologist Commnt PT INR APTT POC ABG pH POC ABG pCO2 POC ABG pO2 POC ABG HCO3 POC ABG Total CO2 POC ABG O2 Sat POC ABG Base Excess FiO2 Sodium Potassium Chloride Carbon Dioxide Anion Gap BUN Creatinine Estimated GFR BUN/Creatinine Ratio Glucose POC Glucose 239 H Calcium Phosphorus Magnesium Miscellaneous Test Flexitest 1 H Blood Type O POSITIVE Antibody Screen TNR VAN Antibody Screen Negative Crossmatch See Detail 08/28/17 08/28/17 08/28/17 13:05 13:29 16:22 WBC RBC Hgb Hct MCV MCH MCHC RDW Plt Count Add Manual Diff Total Counted Seg Neuts % (Manual) Band Neutrophils % Lymphocytes % (Manual) Reactive Lymphs % (Man) Monocytes % (Manual) Eosinophils % (Manual) Basophils % (Manual) Metamyelocytes % Myelocytes % Promyelocytes % Blast Cells % Nucleated RBC % Seg Neutrophils # Man Band Neutrophils # Lymphocytes # (Manual) Abs React Lymphs (Man) Monocytes # (Manual) Eosinophils # (Manual) Basophils # (Manual) Metamyelocytes # Myelocytes # Promyelocytes # Blast Cells # WBC Morphology Hypersegmented Neuts Hyposegmented Neuts Hypogranular Neuts Smudge Cells Toxic Granulation Toxic Vacuolation Dohle Bodies Pelger-Huet Anomaly Ariel Rods Platelet Estimate Clumped Platelets Plt Clumps, EDTA Large Platelets Giant Platelets Platelet Satelliting Plt Morphology Comment RBC Morphology Dimorphic RBCs Polychromasia Hypochromasia Poikilocytosis Anisocytosis Microcytosis Macrocytosis Spherocytes Pappenheimer Bodies Sickle Cells Target Cells Tear Drop Cells Ovalocytes Helmet Cells [place] Bodies [place] Rings Yusuf Cells Bite Cells Crenated Cell Elliptocytes Acanthocytes (Spur) Rouleaux Hemoglobin C Crystals Schistocytes Malaria parasites Jovanni Bodies Hem Pathologist Commnt PT 16.7 H INR 1.29 H APTT 28.9 POC ABG pH 7.415 POC ABG pCO2 41.7 POC ABG pO2 338 H POC ABG HCO3 26.7 POC ABG Total CO2 28 POC ABG O2 Sat 100 POC ABG Base Excess 2 FiO2 100 Sodium Potassium Chloride Carbon Dioxide Anion Gap BUN Creatinine Estimated GFR BUN/Creatinine Ratio Glucose POC Glucose 209 H Calcium Phosphorus Magnesium Miscellaneous Test Blood Type Antibody Screen VAN Antibody Screen Crossmatch 08/28/17 08/28/17 08/28/17 19:20 22:30 22:30 WBC RBC Hgb 11.8 D Hct 37.2 D MCV MCH MCHC RDW Plt Count Add Manual Diff Total Counted Seg Neuts % (Manual) Band Neutrophils % Lymphocytes % (Manual) Reactive Lymphs % (Man) Monocytes % (Manual) Eosinophils % (Manual) Basophils % (Manual) Metamyelocytes % Myelocytes % Promyelocytes % Blast Cells % Nucleated RBC % Seg Neutrophils # Man Band Neutrophils # Lymphocytes # (Manual) Abs React Lymphs (Man) Monocytes # (Manual) Eosinophils # (Manual) Basophils # (Manual) Metamyelocytes # Myelocytes # Promyelocytes # Blast Cells # WBC Morphology Hypersegmented Neuts Hyposegmented Neuts Hypogranular Neuts Smudge Cells Toxic Granulation Toxic Vacuolation Dohle Bodies Pelger-Huet Anomaly Ariel Rods Platelet Estimate Clumped Platelets Plt Clumps, EDTA Large Platelets Giant Platelets Platelet Satelliting Plt Morphology Comment RBC Morphology Dimorphic RBCs Polychromasia Hypochromasia Poikilocytosis Anisocytosis Microcytosis Macrocytosis Spherocytes Pappenheimer Bodies Sickle Cells Target Cells Tear Drop Cells Ovalocytes Helmet Cells [place] Bodies [place] Rings [place] Cells Bite Cells Crenated Cell Elliptocytes Acanthocytes (Spur) Rouleaux Hemoglobin C Crystals Schistocytes Malaria parasites Jovanni Bodies Hem Pathologist Commnt PT 14.9 INR 1.11 APTT POC ABG pH 7.469 H POC ABG pCO2 35.4 POC ABG pO2 240 H POC ABG HCO3 25.7 POC ABG Total CO2 27 POC ABG O2 Sat 100 POC ABG Base Excess 2 FiO2 100 Sodium Potassium Chloride Carbon Dioxide Anion Gap BUN Creatinine Estimated GFR BUN/Creatinine Ratio Glucose POC Glucose Calcium Phosphorus Magnesium Miscellaneous Test Blood Type Antibody Screen VAN Antibody Screen Crossmatch 08/29/17 08/29/17 08/29/17 04:24 04:30 04:30 WBC 44.9 H* RBC 4.08 Hgb 11.6 Hct 35.1 MCV 86 MCH 28 MCHC 33 RDW 23.1 H Plt Count 367 Add Manual Diff Complete Total Counted 100 Seg Neuts % (Manual) 38.0 L Band Neutrophils % 42.0 Lymphocytes % (Manual) 10.0 L Reactive Lymphs % (Man) 0 Monocytes % (Manual) 10.0 H Eosinophils % (Manual) 0 Basophils % (Manual) 0 Metamyelocytes % 0 Myelocytes % 0 Promyelocytes % 0 Blast Cells % 0 Nucleated RBC % 6.0 H Seg Neutrophils # Man 17.1 H Band Neutrophils # 18.9 Lymphocytes # (Manual) 4.5 Abs React Lymphs (Man) 0.0 Monocytes # (Manual) 4.5 H Eosinophils # (Manual) 0.0 Basophils # (Manual) 0.0 Metamyelocytes # 0.0 Myelocytes # 0.0 Promyelocytes # 0.0 Blast Cells # 0.0 WBC Morphology Not Reportable Hypersegmented Neuts Not Reportable Hyposegmented Neuts Not Reportable Hypogranular Neuts Not Reportable Smudge Cells 1+ Toxic Granulation Not Reportable Toxic Vacuolation Not Reportable Dohle Bodies Not Reportable Pelger-Huet Anomaly Not Reportable Ariel Rods Not Reportable Platelet Estimate Cons Clumped Platelets Not Reportable Plt Clumps, EDTA Not Reportable Large Platelets Not Reportable Giant Platelets Few Platelet Satelliting Not Reportable Plt Morphology Comment Not Reportable RBC Morphology Not Reportable Dimorphic RBCs Not Reportable Polychromasia Not Reportable Hypochromasia 1+ Poikilocytosis Not Reportable Anisocytosis 1+ Microcytosis Not Reportable Macrocytosis Not Reportable Spherocytes Not Reportable Pappenheimer Bodies Not Reportable Sickle Cells Not Reportable Target Cells Not Reportable Tear Drop Cells Not Reportable Ovalocytes 1+ Helmet Cells Not Reportable [place] Bodies Not Reportable [place] Rings Not Reportable [place] Cells Not Reportable Bite Cells Not Reportable Crenated Cell Not Reportable Elliptocytes Not Reportable Acanthocytes (Spur) Not Reportable Rouleaux Not Reportable Hemoglobin C Crystals Not Reportable Schistocytes Not Reportable Malaria parasites Not Reportable Jovanni Bodies Not Reportable Hem Pathologist Commnt No PT INR APTT POC ABG pH POC ABG pCO2 POC ABG pO2 POC ABG HCO3 POC ABG Total CO2 POC ABG O2 Sat POC ABG Base Excess FiO2 Sodium 144 Potassium 3.8 D Chloride 101.9 Carbon Dioxide 24 Anion Gap 22 BUN 61 H Creatinine 2.4 H Estimated GFR 25 BUN/Creatinine Ratio 25 Glucose 226 H POC Glucose 195 H Calcium 8.8 Phosphorus 3.20 D Magnesium 1.80 Miscellaneous Test Blood Type Antibody Screen VAN Antibody Screen Crossmatch <ESTEVAN REIS - Last Filed: 08/29/17 10:49> Assessment and Plan - Patient Problems (1) Lower GI bleed Current Visit: Yes Status: Acute Plan to address problem: Bleeding has subsided. She is not a candidate for colonoscopy and therefore supportive care is planned. Will s/o and f/u at your request. Thanks (2) ARF (acute renal failure) Current Visit: Yes Status: Acute Qualifiers: Acute renal failure type: A (3) ESRD (end stage renal disease) on dialysis Current Visit: Yes Status: Acute (4) SBO (small bowel obstruction) Current Visit: Yes Status: Acute (5) Obesity, morbid, BMI 50 or higher Current Visit: No Status: Chronic Objective - Constitutional Vitals: Temp Pulse Resp BP Pulse Ox 98.6 F 106 H 20 135/60 100 08/29/17 08:00 08/29/17 10:31 08/29/17 10:31 08/29/17 10:31 08/29/17 10:31 - Labs CBC & Chem 7: 08/29/17 04:30 08/29/17 04:30 Labs: Laboratory Results - last 24 hr 08/22/17 08/28/17 08/28/17 08:50 08:19 11:56 WBC RBC Hgb Hct MCV MCH MCHC RDW Plt Count Add Manual Diff Total Counted Seg Neuts % (Manual) Band Neutrophils % Lymphocytes % (Manual) Reactive Lymphs % (Man) Monocytes % (Manual) Eosinophils % (Manual) Basophils % (Manual) Metamyelocytes % Myelocytes % Promyelocytes % Blast Cells % Nucleated RBC % Seg Neutrophils # Man Band Neutrophils # Lymphocytes # (Manual) Abs React Lymphs (Man) Monocytes # (Manual) Eosinophils # (Manual) Basophils # (Manual) Metamyelocytes # Myelocytes # Promyelocytes # Blast Cells # WBC Morphology Hypersegmented Neuts Hyposegmented Neuts Hypogranular Neuts Smudge Cells Toxic Granulation Toxic Vacuolation Dohle Bodies Pelger-Huet Anomaly Ariel Rods Platelet Estimate Clumped Platelets Plt Clumps, EDTA Large Platelets Giant Platelets Platelet Satelliting Plt Morphology Comment RBC Morphology Dimorphic RBCs Polychromasia Hypochromasia Poikilocytosis Anisocytosis Microcytosis Macrocytosis Spherocytes Pappenheimer Bodies Sickle Cells Target Cells Tear Drop Cells Ovalocytes Helmet Cells [place] Bodies [place] Rings [place] Cells Bite Cells Crenated Cell Elliptocytes Acanthocytes (Spur) Rouleaux Hemoglobin C Crystals Schistocytes Malaria parasites Jovanni Bodies Hem Pathologist Commnt PT INR APTT POC ABG pH POC ABG pCO2 POC ABG pO2 POC ABG HCO3 POC ABG Total CO2 POC ABG O2 Sat POC ABG Base Excess FiO2 Sodium Potassium Chloride Carbon Dioxide Anion Gap BUN Creatinine Estimated GFR BUN/Creatinine Ratio Glucose POC Glucose 239 H Calcium Phosphorus Magnesium Miscellaneous Test Flexitest 1 H Blood Type O POSITIVE Antibody Screen TNR VAN Antibody Screen Negative Crossmatch See Detail 08/28/17 08/28/17 08/28/17 13:05 13:29 16:22 WBC RBC Hgb Hct MCV MCH MCHC RDW Plt Count Add Manual Diff Total Counted Seg Neuts % (Manual) Band Neutrophils % Lymphocytes % (Manual) Reactive Lymphs % (Man) Monocytes % (Manual) Eosinophils % (Manual) Basophils % (Manual) Metamyelocytes % Myelocytes % Promyelocytes % Blast Cells % Nucleated RBC % Seg Neutrophils # Man Band Neutrophils # Lymphocytes # (Manual) Abs React Lymphs (Man) Monocytes # (Manual) Eosinophils # (Manual) Basophils # (Manual) Metamyelocytes # Myelocytes # Promyelocytes # Blast Cells # WBC Morphology Hypersegmented Neuts Hyposegmented Neuts Hypogranular Neuts Smudge Cells Toxic Granulation Toxic Vacuolation Dohle Bodies Pelger-Huet Anomaly Ariel Rods Platelet Estimate Clumped Platelets Plt Clumps, EDTA Large Platelets Giant Platelets Platelet Satelliting Plt Morphology Comment RBC Morphology Dimorphic RBCs Polychromasia Hypochromasia Poikilocytosis Anisocytosis Microcytosis Macrocytosis Spherocytes Pappenheimer Bodies Sickle Cells Target Cells Tear Drop Cells Ovalocytes Helmet Cells [place] Bodies [place] Rings Yusuf Cells Bite Cells Crenated Cell Elliptocytes Acanthocytes (Spur) Rouleaux Hemoglobin C Crystals Schistocytes Malaria parasites Jovanni Bodies Hem Pathologist Commnt PT 16.7 H INR 1.29 H APTT 28.9 POC ABG pH 7.415 POC ABG pCO2 41.7 POC ABG pO2 338 H POC ABG HCO3 26.7 POC ABG Total CO2 28 POC ABG O2 Sat 100 POC ABG Base Excess 2 FiO2 100 Sodium Potassium Chloride Carbon Dioxide Anion Gap BUN Creatinine Estimated GFR BUN/Creatinine Ratio Glucose POC Glucose 209 H Calcium Phosphorus Magnesium Miscellaneous Test Blood Type Antibody Screen VAN Antibody Screen Crossmatch 08/28/17 08/28/17 08/28/17 19:20 22:30 22:30 WBC RBC Hgb 11.8 D Hct 37.2 D MCV MCH MCHC RDW Plt Count Add Manual Diff Total Counted Seg Neuts % (Manual) Band Neutrophils % Lymphocytes % (Manual) Reactive Lymphs % (Man) Monocytes % (Manual) Eosinophils % (Manual) Basophils % (Manual) Metamyelocytes % Myelocytes % Promyelocytes % Blast Cells % Nucleated RBC % Seg Neutrophils # Man Band Neutrophils # Lymphocytes # (Manual) Abs React Lymphs (Man) Monocytes # (Manual) Eosinophils # (Manual) Basophils # (Manual) Metamyelocytes # Myelocytes # Promyelocytes # Blast Cells # WBC Morphology Hypersegmented Neuts Hyposegmented Neuts Hypogranular Neuts Smudge Cells Toxic Granulation Toxic Vacuolation Dohle Bodies Pelger-Huet Anomaly Ariel Rods Platelet Estimate Clumped Platelets Plt Clumps, EDTA Large Platelets Giant Platelets Platelet Satelliting Plt Morphology Comment RBC Morphology Dimorphic RBCs Polychromasia Hypochromasia Poikilocytosis Anisocytosis Microcytosis Macrocytosis Spherocytes Pappenheimer Bodies Sickle Cells Target Cells Tear Drop Cells Ovalocytes Helmet Cells [place] Bodies [place] Rings Yusuf Cells Bite Cells Crenated Cell Elliptocytes Acanthocytes (Spur) Rouleaux Hemoglobin C Crystals Schistocytes Malaria parasites Jovanni Bodies Hem Pathologist Commnt PT 14.9 INR 1.11 APTT POC ABG pH 7.469 H POC ABG pCO2 35.4 POC ABG pO2 240 H POC ABG HCO3 25.7 POC ABG Total CO2 27 POC ABG O2 Sat 100 POC ABG Base Excess 2 FiO2 100 Sodium Potassium Chloride Carbon Dioxide Anion Gap BUN Creatinine Estimated GFR BUN/Creatinine Ratio Glucose POC Glucose Calcium Phosphorus Magnesium Miscellaneous Test Blood Type Antibody Screen VAN Antibody Screen Crossmatch 08/29/17 08/29/17 08/29/17 04:24 04:30 04:30 WBC 44.9 H* RBC 4.08 Hgb 11.6 Hct 35.1 MCV 86 MCH 28 MCHC 33 RDW 23.1 H Plt Count 367 Add Manual Diff Complete Total Counted 100 Seg Neuts % (Manual) 38.0 L Band Neutrophils % 42.0 Lymphocytes % (Manual) 10.0 L Reactive Lymphs % (Man) 0 Monocytes % (Manual) 10.0 H Eosinophils % (Manual) 0 Basophils % (Manual) 0 Metamyelocytes % 0 Myelocytes % 0 Promyelocytes % 0 Blast Cells % 0 Nucleated RBC % 6.0 H Seg Neutrophils # Man 17.1 H Band Neutrophils # 18.9 Lymphocytes # (Manual) 4.5 Abs React Lymphs (Man) 0.0 Monocytes # (Manual) 4.5 H Eosinophils # (Manual) 0.0 Basophils # (Manual) 0.0 Metamyelocytes # 0.0 Myelocytes # 0.0 Promyelocytes # 0.0 Blast Cells # 0.0 WBC Morphology Not Reportable Hypersegmented Neuts Not Reportable Hyposegmented Neuts Not Reportable Hypogranular Neuts Not Reportable Smudge Cells 1+ Toxic Granulation Not Reportable Toxic Vacuolation Not Reportable Dohle Bodies Not Reportable Pelger-Huet Anomaly Not Reportable Airel Rods Not Reportable Platelet Estimate Cons Clumped Platelets Not Reportable Plt Clumps, EDTA Not Reportable Large Platelets Not Reportable Giant Platelets Few Platelet Satelliting Not Reportable Plt Morphology Comment Not Reportable RBC Morphology Not Reportable Dimorphic RBCs Not Reportable Polychromasia Not Reportable Hypochromasia 1+ Poikilocytosis Not Reportable Anisocytosis 1+ Microcytosis Not Reportable Macrocytosis Not Reportable Spherocytes Not Reportable Pappenheimer Bodies Not Reportable Sickle Cells Not Reportable Target Cells Not Reportable Tear Drop Cells Not Reportable Ovalocytes 1+ Helmet Cells Not Reportable [place] Bodies Not Reportable [place] Rings Not Reportable [place] Cells Not Reportable Bite Cells Not Reportable Crenated Cell Not Reportable Elliptocytes Not Reportable Acanthocytes (Spur) Not Reportable Rouleaux Not Reportable Hemoglobin C Crystals Not Reportable Schistocytes Not Reportable Malaria parasites Not Reportable Jovanni Bodies Not Reportable Hem Pathologist Commnt No PT INR APTT POC ABG pH POC ABG pCO2 POC ABG pO2 POC ABG HCO3 POC ABG Total CO2 POC ABG O2 Sat POC ABG Base Excess FiO2 Sodium 144 Potassium 3.8 D Chloride 101.9 Carbon Dioxide 24 Anion Gap 22 BUN 61 H Creatinine 2.4 H Estimated GFR 25 BUN/Creatinine Ratio 25 Glucose 226 H POC Glucose 195 H Calcium 8.8 Phosphorus 3.20 D Magnesium 1.80 Miscellaneous Test Blood Type Antibody Screen VAN Antibody Screen Crossmatch
--- NOTE | 2017-08-29 10:21 | Progress Note ---
Assessment and Plan Assessment: 1) Sepsis with septic shock: worsening, she is back on pressors; new source ? surgical wound infection? . Initial source bowel obstruction / suspect ?gastric perforation. -CRP=28-->32-->34 -->30 -procalcitonin=1.3 -repeat CTA no PE, no abscess, + atelectasis 2) Bowel obstruction / suspect ?gastric perforation ? peritonitis -S/P Exlap, G-tube placement, EGD, abdominal washout and removal of PD -OR findings - bowel obstruction due to entanglement of PD cath, abscess cavity in LUQ and ? suspect perforation of unclear location 3) CA-UTI: chronic ivan exchanged every 4 weeks and ureteral stents in place which are exchanged every 6 months ? urine cultures still pending should r/o MDR bacteria 4) Paraplegia 5) ESRD on PD - no evidence of peritonitis, wbc count 2. PSYCHOLOGY CLINICIAN and Diphteroids on peritoneal fluid likely contaminants. 6) Recent pancreatitis 7) Penicillin allergy-has taken keflex w/o problems 8) Presumed Surgical wound infection ? woudn + Staph and Kristine Plan: -start vancomycin, meropenem and micafungin -monitor surgical wound cultures -recheck CRP/procal -consider CT abd if not better -check blood cx -exchange ivan Thank you Dr Marie for your consultation, will follow up with you. Ramya Lang MD Infectious Diseases Specialist [facility] [phone] O [phone] Subjective Date of service: 08/29/17 Principal diagnosis: LGI bleeding Interval history: Pt deteriorated with hypoxemia and transferred to the ICU on CPAP, somnolent, on pressors. Microbiology: Blood cultures: 08/08 neg 08/12 neg 08/16 neg 08/20 neg Urine cultures: 08/08 10-100K skin grace Respiratory cultures: Wound cultures: 08/26 Staph aureus and Kristine Stool cultures: Other: 08/08 peritoneal fluid + PSYCHOLOGY CLINICIAN/Diphteroids Current Antimicrobials: 08/16 fluconazole Previous Antimicrobials: 08/10 levaquin 08/16 vancomycin 08/13 meropenem Objective - Exam Narrative Exam: General appearance: somnolent on CPAP Eyes: anicteric sclerae, moist conjunctivae; no lid-lag; PERRLA HENT: Atraumatic; limited OP Neck: Trachea midline; supple, no thyromegaly or lymphadenopathy Lungs: coarse BS moreno CV: RRR, no murmurs Abdomen: soft, midline surgical wound with kelli partially open and packed + drainage. Gtube Extremities: + peripheral edema + leg ulcer Skin: Normal temperature, turgor and texture; no rash, ulcers or subcutaneous nodules Psych: stable. Neuro: alert talking moving all extremities Lines: Right vascath femoral / Right IJ Nair 08/16 - Constitutional Vitals: Vital Signs Temp Pulse Resp BP Pulse Ox 98.6 F 107 H 18 124/74 100 08/29/17 08:00 08/29/17 09:01 08/29/17 09:01 08/29/17 09:00 08/29/17 09:00 Temperature -Last 24 Hours Temperature 98.6 F Temperature 98.8 F Temperature 98.5 F Temperature 98.3 F Temperature 98.3 F Temperature 98.3 F Temperature 98.2 F Temperature 98.2 F Temperature 98.2 F Temperature 98.2 F Temperature 98.2 F Temperature 98.2 F Temperature 98.4 F Temperature 98.4 F Temperature 98.4 F - Labs CBC & Chem 7: 08/29/17 04:30 08/29/17 04:30 Labs: Abnormal lab results 08/22/17 08/28/17 08/28/17 Range/Units 08:50 08:19 11:56 WBC (4.5-11.0) K/mm3 RDW (13.2-15.2) % Seg Neuts % (Manual) (40.0-70.0) % Lymphocytes % (Manual) (13.4-35.0) % Monocytes % (Manual) (0.0-7.3) % Nucleated RBC % (0.0-0.9) % Seg Neutrophils # Man (1.8-7.7) K/mm3 Monocytes # (Manual) (0.0-0.8) K/mm3 PT (12.2-14.9) Sec. INR (0.87-1.13) POC ABG pH (7.35-7.45) POC ABG pO2 (80-105) BUN (7-17) mg/dL Creatinine (0.7-1.2) mg/dL Glucose (65-100) mg/dL POC Glucose 239 H (70-105) Miscellaneous Test Flexitest 1 H Crossmatch See Detail 08/28/17 08/28/17 08/28/17 Range/Units 13:05 13:29 16:22 WBC (4.5-11.0) K/mm3 RDW (13.2-15.2) % Seg Neuts % (Manual) (40.0-70.0) % Lymphocytes % (Manual) (13.4-35.0) % Monocytes % (Manual) (0.0-7.3) % Nucleated RBC % (0.0-0.9) % Seg Neutrophils # Man (1.8-7.7) K/mm3 Monocytes # (Manual) (0.0-0.8) K/mm3 PT 16.7 H (12.2-14.9) Sec. INR 1.29 H (0.87-1.13) POC ABG pH (7.35-7.45) POC ABG pO2 338 H (80-105) BUN (7-17) mg/dL Creatinine (0.7-1.2) mg/dL Glucose (65-100) mg/dL POC Glucose 209 H (70-105) Miscellaneous Test Crossmatch 08/28/17 08/29/17 08/29/17 Range/Units 19:20 04:24 04:30 WBC 44.9 H* (4.5-11.0) K/mm3 RDW 23.1 H (13.2-15.2) % Seg Neuts % (Manual) 38.0 L (40.0-70.0) % Lymphocytes % (Manual) 10.0 L (13.4-35.0) % Monocytes % (Manual) 10.0 H (0.0-7.3) % Nucleated RBC % 6.0 H (0.0-0.9) % Seg Neutrophils # Man 17.1 H (1.8-7.7) K/mm3 Monocytes # (Manual) 4.5 H (0.0-0.8) K/mm3 PT (12.2-14.9) Sec. INR (0.87-1.13) POC ABG pH 7.469 H (7.35-7.45) POC ABG pO2 240 H (80-105) BUN (7-17) mg/dL Creatinine (0.7-1.2) mg/dL Glucose (65-100) mg/dL POC Glucose 195 H (70-105) Miscellaneous Test Crossmatch 08/29/17 Range/Units 04:30 WBC (4.5-11.0) K/mm3 RDW (13.2-15.2) % Seg Neuts % (Manual) (40.0-70.0) % Lymphocytes % (Manual) (13.4-35.0) % Monocytes % (Manual) (0.0-7.3) % Nucleated RBC % (0.0-0.9) % Seg Neutrophils # Man (1.8-7.7) K/mm3 Monocytes # (Manual) (0.0-0.8) K/mm3 PT (12.2-14.9) Sec. INR (0.87-1.13) POC ABG pH (7.35-7.45) POC ABG pO2 (80-105) BUN 61 H (7-17) mg/dL Creatinine 2.4 H (0.7-1.2) mg/dL Glucose 226 H (65-100) mg/dL POC Glucose (70-105) Miscellaneous Test Crossmatch
[2017-08-29] MEDS ORDERED: VANCOMYCIN PHARMACY TO DOSE IV SCH (11:00)
[2017-08-29] MEDS ORDERED: VANCOMYCIN VIAL 1,000 MG in NACL 0.9% 100 ML IV SCH (11:00)
[2017-08-29] MEDS ORDERED: VANCOMYCIN 1,500 MG in NACL 0.9% 500 ML 500 ML IV ONE (12:00)
[2017-08-29] MEDS ORDERED: HEPARIN 10,000 UNITS/10 ML ONE (12:28)
[2017-08-29 12:47] LABS: Hematocrit 33.8 % (30.3-42.9); Hemoglobin 10.9 gm/dl (10.1-14.3)
[2017-08-29] MEDS ORDERED: HEPARIN IV PRN (13:00)
[2017-08-29] MEDS ORDERED: LEVEMIR SUB-Q SCH (15:00)
--- NOTE | 2017-08-29 15:23 | Progress Note ---
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 - Resolved Sepsis secondary to peritonitis, Intra abdominal abscess - Patient completed 14 days of meropenem and diflucan - Patient restarted with IV vancomycin, meropenem and micafungin - Patient needs abdominal abscess drainage but not done because of her respiratory compromise End-stage renal disease - Continue HD with femoral catheter - will change to perm cath once patient is stable enough for the procedure Hypophosphatemia/hypomagnesemia - ESRD Urinary retention - Urology consult appreciated small bowel obstruction , s/p G-tube placement Ulcerative esophagitis/small gastric ulcer on EGD - IV pantoprazole Severe Protein calorie malnutrition - Continue with TPN Sacral and lower extremity wound - continue wound care Leukocytosis - Hematology is following - Patient is IV antibiotics and antifungal --DVT prophylaxis; SCDs - D/C Heparin because of GI bleed Plan of care discussed with the patient's and 2 daughters. Disposition - continue ICU care Prognosis: guarded History Interval history: Patient was seen and evaluated this morning, patient was lethargic and has difficulty of breathing and she is on 50% Ventimask. She open her eyes on command. I have discussed the management plan with her and 2 daughters. Hospitalist Physical - Physical exam Narrative exam: Patient is in no respiratory distress and she is on 50% Ventimask The patient is obese. Vital signs as documented. Head exam is unremarkable. No scleral icterus . Neck is without jugular venous distension, thyromegaly, or carotid bruits. Lungs are clear to auscultation. Cardiac exam reveals tachycardia. Abdominal exam reveals clean dressing on the surgical site of the abdomen. 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 - Constitutional Vitals: Temp Pulse Resp BP Pulse Ox 98.9 F 109 H 21 117/89 97 08/29/17 13:00 08/29/17 14:59 08/29/17 14:57 08/29/17 14:59 08/29/17 12:00 General appearance: Present: mild distress, well-nourished Results - Labs CBC & Chem 7: 08/29/17 12:30 08/29/17 04:30 Labs: Laboratory Last Values WBC 44.9 K/mm3 (4.5-11.0) H* 08/29/17 04:30 RBC 4.08 M/mm3 (3.65-5.03) 08/29/17 04:30 Hgb 10.9 gm/dl (10.1-14.3) 08/29/17 12:30 Hct 33.8 % (30.3-42.9) 08/29/17 12:30 MCV 86 fl (79-97) 08/29/17 04:30 MCH 28 pg (28-32) 08/29/17 04:30 MCHC 33 % (30-34) 08/29/17 04:30 RDW 23.1 % (13.2-15.2) H 08/29/17 04:30 Plt Count 367 K/mm3 (140-440) 08/29/17 04:30 Lymph % (Auto) Assignment Editor 08/19/17 07:37 [place] % (Auto) Assignment Editor 08/19/17 07:37 Eos % (Auto) Assignment Editor 08/19/17 07:37 Baso % (Auto) Assignment Editor 08/19/17 07:37 Lymph # Assignment Editor 08/19/17 07:37 [place] # Assignment Editor 08/19/17 07:37 Eos # Assignment Editor 08/19/17 07:37 Baso # Assignment Editor 08/19/17 07:37 Add Manual Diff Complete 08/29/17 04:30 Total Counted 100 08/29/17 04:30 Seg Neutrophils % Assignment Editor 08/28/17 06:53 Seg Neuts % (Manual) 38.0 % (40.0-70.0) L 08/29/17 04:30 Band Neutrophils % 42.0 % 08/29/17 04:30 Lymphocytes % (Manual) 10.0 % (13.4-35.0) L 08/29/17 04:30 Reactive Lymphs % (Man) 0 % 08/29/17 04:30 Monocytes % (Manual) 10.0 % (0.0-7.3) H 08/29/17 04:30 Eosinophils % (Manual) 0 % (0.0-4.3) 08/29/17 04:30 Basophils % (Manual) 0 % (0.0-1.8) 08/29/17 04:30 Metamyelocytes % 0 % 08/29/17 04:30 Myelocytes % 0 % 08/29/17 04:30 Promyelocytes % 0 % 08/29/17 04:30 Blast Cells % 0 % 08/29/17 04:30 Nucleated RBC % 6.0 % (0.0-0.9) H 08/29/17 04:30 Seg Neutrophils # Assignment Editor 08/19/17 07:37 Seg Neutrophils # Man 17.1 K/mm3 (1.8-7.7) H 08/29/17 04:30 Band Neutrophils # 18.9 K/mm3 08/29/17 04:30 Lymphocytes # (Manual) 4.5 K/mm3 (1.2-5.4) 08/29/17 04:30 Abs React Lymphs (Man) 0.0 K/mm3 08/29/17 04:30 Monocytes # (Manual) 4.5 K/mm3 (0.0-0.8) H 08/29/17 04:30 Eosinophils # (Manual) 0.0 K/mm3 (0.0-0.4) 08/29/17 04:30 Basophils # (Manual) 0.0 K/mm3 (0.0-0.1) 08/29/17 04:30 Metamyelocytes # 0.0 K/mm3 08/29/17 04:30 Myelocytes # 0.0 K/mm3 08/29/17 04:30 Promyelocytes # 0.0 K/mm3 08/29/17 04:30 Blast Cells # 0.0 K/mm3 08/29/17 04:30 WBC Morphology Not Reportable 08/29/17 04:30 Hypersegmented Neuts Not Reportable 08/29/17 04:30 Hyposegmented Neuts Not Reportable 08/29/17 04:30 Hypogranular Neuts Not Reportable 08/29/17 04:30 Smudge Cells 1+ 08/29/17 04:30 Toxic Granulation Not Reportable 08/29/17 04:30 Toxic Vacuolation Not Reportable 08/29/17 04:30 Dohle Bodies Not Reportable 08/29/17 04:30 Pelger-Huet Anomaly Not Reportable 08/29/17 04:30 Ariel Rods Not Reportable 08/29/17 04:30 Platelet Estimate Cons 08/29/17 04:30 Clumped Platelets Not Reportable 08/29/17 04:30 Plt Clumps, EDTA Not Reportable 08/29/17 04:30 Large Platelets Not Reportable 08/29/17 04:30 Giant Platelets Few 08/29/17 04:30 Platelet Satelliting Not Reportable 08/29/17 04:30 Plt Morphology Comment Not Reportable 08/29/17 04:30 RBC Morphology Not Reportable 08/29/17 04:30 Dimorphic RBCs Not Reportable 08/29/17 04:30 Polychromasia Not Reportable 08/29/17 04:30 Hypochromasia 1+ 08/29/17 04:30 Poikilocytosis Not Reportable 08/29/17 04:30 Anisocytosis 1+ 08/29/17 04:30 Microcytosis Not Reportable 08/29/17 04:30 Macrocytosis Not Reportable 08/29/17 04:30 Spherocytes Not Reportable 08/29/17 04:30 Pappenheimer Bodies Not Reportable 08/29/17 04:30 Sickle Cells Not Reportable 08/29/17 04:30 Target Cells Not Reportable 08/29/17 04:30 Tear Drop Cells Not Reportable 08/29/17 04:30 Ovalocytes 1+ 08/29/17 04:30 Stomatocytes Few 08/20/17 03:20 Helmet Cells Not Reportable 08/29/17 04:30 [place] Bodies Not Reportable 08/29/17 04:30 [place] Rings Not Reportable 08/29/17 04:30 [place] Cells Not Reportable 08/29/17 04:30 Bite Cells Not Reportable 08/29/17 04:30 Crenated Cell Not Reportable 08/29/17 04:30 Elliptocytes Not Reportable 08/29/17 04:30 Acanthocytes (Spur) Not Reportable 08/29/17 04:30 Rouleaux Not Reportable 08/29/17 04:30 Hemoglobin C Crystals Not Reportable 08/29/17 04:30 Schistocytes Not Reportable 08/29/17 04:30 Malaria parasites Not Reportable 08/29/17 04:30 Jovanni Bodies Not Reportable 08/29/17 04:30 Hem Pathologist Commnt No 08/29/17 04:30 PT 14.9 Sec. (12.2-14.9) 08/28/17 22:30 INR 1.11 (0.87-1.13) 08/28/17 22:30 APTT 28.9 Sec. (24.2-36.6) 08/28/17 13:05 POC ABG pH 7.469 (7.35-7.45) H 08/28/17 19:20 POC ABG pCO2 35.4 (35-45) 08/28/17 19:20 POC ABG pO2 240 (80-105) H 08/28/17 19:20 POC ABG HCO3 25.7 08/28/17 19:20 POC ABG Total CO2 27 08/28/17 19:20 POC ABG O2 Sat 100 08/28/17 19:20 POC ABG Base Excess 2 08/28/17 19:20 VBG pH 7.462 (7.320-7.420) H 08/08/17 14:52 FiO2 100 % 08/28/17 19:20 Sodium 144 mmol/L (137-145) 08/29/17 04:30 Potassium 3.8 mmol/L (3.6-5.0) D 08/29/17 04:30 Chloride 101.9 mmol/L (98-107) 08/29/17 04:30 Carbon Dioxide 24 mmol/L (22-30) 08/29/17 04:30 Anion Gap 22 mmol/L 08/29/17 04:30 BUN 61 mg/dL (7-17) H 08/29/17 04:30 Creatinine 2.4 mg/dL (0.7-1.2) H 08/29/17 04:30 Estimated GFR 25 ml/min 08/29/17 04:30 BUN/Creatinine Ratio 25 % 08/29/17 04:30 Glucose 226 mg/dL (65-100) H 08/29/17 04:30 POC Glucose 195 (70-105) H 08/29/17 04:24 Lactic Acid 1.60 mmol/L (0.7-2.0) 08/17/17 11:20 Calcium 8.8 mg/dL (8.4-10.2) 08/29/17 04:30 Phosphorus 3.20 mg/dL (2.5-4.5) D 08/29/17 04:30 Magnesium 1.80 mg/dL (1.7-2.3) 08/29/17 04:30 Total Bilirubin 0.50 mg/dL (0.1-1.2) 08/26/17 05:30 Direct Bilirubin 0.2 mg/dL (0-0.2) 08/08/17 14:11 Indirect Bilirubin 0.3 mg/dL 08/08/17 14:11 AST 135 units/L (5-40) H 08/26/17 05:30 ALT 49 units/L (7-56) 08/26/17 05:30 Alkaline Phosphatase 211 units/L (35-129) H 08/26/17 05:30 Ammonia 25.0 umol/L (25-60) 08/08/17 14:52 Troponin T 0.132 ng/mL (0.00-0.029) H* 08/09/17 13:25 C-Reactive Protein 19.10 mg/dL (0.00-1.30) H 08/29/17 12:30 NT-Pro-B Natriuret Pep 6156 pg/mL (0-900) H 08/08/17 14:11 Total Protein 4.8 g/dL (6.3-8.2) L 08/26/17 05:30 Albumin 2.0 g/dL (3.9-5) L 08/26/17 05:30 Albumin/Globulin Ratio 0.7 % 08/26/17 05:30 Triglycerides 62 mg/dL (2-149) 08/08/17 21:23 Cholesterol 91 mg/dL (50-199) 08/08/17 21:23 LDL Cholesterol Direct 53 mg/dL (50-130) 08/08/17 21:23 HDL Cholesterol 26 mg/dL (40-59) L 08/08/17 21:23 Cholesterol/HDL Ratio 3.50 % 08/08/17 21:23 Amylase 45 units/L (27-131) 08/16/17 09:50 Lipase 34 units/L (13-60) 08/16/17 09:50 TSH 6.580 mlU/mL (0.270-4.200) H 08/08/17 14:22 Free T4 1.46 ng/dL (0.76-1.46) 08/08/17 14:22 Total Cortisol 30.1 mcg/dL () 08/13/17 06:14 Urine Color Yellow (Yellow) 08/08/17 20:15 Urine Turbidity Turbid (Clear) 08/08/17 20:15 Urine pH 8.0 (5.0-7.0) H 08/08/17 20:15 Ur Specific [place] 1.015 (1.003-1.030) 08/08/17 20:15 Urine Protein 100 mg/dl mg/dL (Negative) 08/08/17 20:15 Urine Glucose (UA) Neg mg/dL (Negative) 08/08/17 20:15 Urine Ketones Neg mg/dL (Negative) 08/08/17 20:15 Urine Blood Mod (Negative) 08/08/17 20:15 Urine Nitrite Neg (Negative) 08/08/17 20:15 Urine Bilirubin Neg (Negative) 08/08/17 20:15 Urine Urobilinogen < 2.0 mg/dL (<2.0) 08/08/17 20:15 Ur Leukocyte Esterase Lg (Negative) 08/08/17 20:15 Urine WBC (Auto) 24.0 /HPF (0.0-6.0) H 08/08/17 20:15 Urine RBC (Auto) 3.0 /HPF (0.0-6.0) 08/08/17 20:15 U Epithel Cells (Auto) 3.0 /HPF (0-13.0) 08/08/17 20:15 Urine Bacteria (Auto) 4+ /HPF (Negative) 08/08/17 20:15 Urine Mucus 3+ /HPF 08/08/17 20:15 Fluid Type Peritoneal 08/08/17 18:18 Fluid Color Straw 08/08/17 18:18 Fluid Appearance Clear 08/08/17 18:18 Fluid pH 7.74 08/08/17 18:18 Fluid WBC 4 /mm3 08/08/17 18:18 Fluid RBC 1 /mm3 08/08/17 18:18 Fluid Seg Neutrophils 12 % 08/08/17 18:18 Fluid Lymphocytes 0 % 08/08/17 18:18 Fluid Reactive Lymphs 0 % 08/08/17 18:18 Fluid Monocytes 1 % 08/08/17 18:18 Fluid Eosinophils 0 % 08/08/17 18:18 Fluid Basophils 0 % 08/08/17 18:18 Fluid Glucose 315 mg/dL (40-70) H 08/08/17 18:18 Random Vancomycin 19.5 ug/mL (0-40.0) 08/22/17 03:40 Hep Bs Antigen Non-reactive (Negative) 08/22/17 03:40 Hepatitis C Antibody Non-reactive (NonReactive) 08/22/17 03:40 Miscellaneous Test Flexitest 1 H 08/22/17 08:50 Blood Type O POSITIVE 08/28/17 11:56 Antibody Screen TNR 08/28/17 11:56 VAN Antibody Screen Negative 08/28/17 11:56 Crossmatch See Detail 08/28/17 11:56
[2017-08-29] MEDS: HEPARIN IV PRN (15:31)
[2017-08-29 16:13] LABS: Hematocrit 38.4 % (30.3-42.9); Hemoglobin 11.9 gm/dl (10.1-14.3)
--- NOTE | 2017-08-29 17:19 | Progress Note ---
Assessment and Plan Imp: 1. Acute bacterial peritonitis/abscess s/p PD cath removal and exlap 2. SBO 3. Acute respiratory failure, hypoxia 4. Morbid obesity, excess cals. 5. ESRD 6. Sepsis, better 7. Leukemoid reaction due to high-dose steroids 8. LGIB with acute blood loss anemia Rec: 1. Increased Solu-cortef back to stress-dose until off pressors 2. Monitor volume status with TPN 3. BIPAP prn 4. Monitor H/H and for recurrent bleeding 5. Levophed if necessary to keep MAP > 65; has Nair and pigtail on her R femoral vascath 6. SCDs ordered; stop subQ heparin 7. ABX as per ID 8. Prognosis is guarded to poor given multiple issues; family has been updated by surgery and hospitalist 9. Complex patient Plan of care reviewed w/ patient, she understands/agrees Subjective Date of service: 08/29/17 Principal diagnosis: LGI bleeding Interval history: + Blood from MERVIN, stable per discussions with surgeon. Received 3 units of PRBCs. No recent rectal bleeding. Undergoing HD now, on Levophed 12mcg. Awake, on BIPAP. Active Medications Al Hydrox/Mg Hydrox/Simethicone (Alum-Mag Hydrox-Simeth [id number]/5ml) 15 ml PO Q4H PRN PRN Reason: Indigestion Last Admin: 08/09/17 23:37 Dose: 15 ml Albuterol (Proventil) 2.5 mg IH Q4HRT PRN PRN Reason: Shortness Of Breath Last Admin: 08/24/17 21:49 Dose: 2.5 mg Albuterol/Ipratropium (Duoneb *Not For Prn Use*) 1 ampul IH Q6HRT [facility] Last Admin: 08/29/17 14:56 Dose: 1 ampul Heparin Sodium (Porcine) (Heparin) 5,000 unit IV ISIAH PRN PRN Reason: hemodialysis Last Admin: 08/29/17 15:31 Dose: 5,000 unit Hydrocortisone Sodium Succinate (Solu-Cortef) 100 mg IV Q8HR [facility] Last Admin: 08/29/17 06:55 Dose: Not Given Hydromorphone HCl (Dilaudid) 1 mg IV Q4H PRN PRN Reason: Pain , Severe (7-10) Last Admin: 08/28/17 09:52 Dose: 1 mg Hydrophilic Ointment (Vaseline Lip Therapy) 1 applic TP DIRECT PRN PRN Reason: DRY LIPS Amino Acids/Electrolytes/Dextrose (Tpn Adult) 1,800 mls @ 75 mls/hr IV DAILY@ 2000 [place]ORIA PRN Reason: Protocol Stop: 08/29/17 19:59 Last Admin: 08/28/17 20:59 Dose: 75 mls/hr Norepinephrine 8 mg/ Sodium (Chloride) 250 mls @ 3.75 mls/hr IV TITR GLORIA; 2 MCG /MIN PRN Reason: Protocol Last Admin: 08/28/17 21:29 Dose: 6 mcg/min, 11.25 mls/hr Meropenem 1,000 mg/ Sodium (Chloride) 100 mls @ 100 mls/hr IV Q24HR [facility] PRN Reason: Protocol Micafungin Sodium 100 mg/ (Sodium Chloride) 100 mls @ 100 mls/hr IV QDAY [facility] PRN Reason: Protocol Amino Acids/Electrolytes/Dextrose (Tpn Adult) 1,800 mls @ 75 mls/hr IV DAILY@ 2000 GLORIA PRN Reason: Protocol Stop: 08/30/17 19:59 Sodium Chloride (Nacl 0.9%) 100 mls @ 999 mls/hr IV ISIAH PRN PRN Reason: Hypotension Insulin Detemir (Levemir) 5 units SUB-Q DAILY [facility] Insulin Human Regular (Novolin R) 0 units SUB-Q Q6HR [facility] PRN Reason: Protocol Last Admin: 08/29/17 06:53 Dose: Not Given Multi-Ingred Cream/Lotion/Oil/Oint (Artificial Tears Ophth Oint) 1 applic OU Q4H PRN PRN Reason: Dry Eye(s) Ondansetron HCl (Zofran) 4 mg IV Q6H PRN PRN Reason: Nausea And Vomiting Last Admin: 08/16/17 22:50 Dose: 4 mg Pantoprazole Sodium (Protonix) 40 mg IV BID [facility] Last Admin: 08/29/17 06:54 Dose: Not Given Sodium Chloride (Nacl 0.9% 500 Ml) 1 ml IV DIRECT GLORIA Vancomycin HCl (Vancomycin Pharmacy To Dose) 1 each IV PKCONSULT [facility] PRN Reason: Protocol Objective Vital Signs - 12hr 08/29/17 08/29/17 08/29/17 05:31 05:45 06:00 Temperature Pulse Rate 106 H 107 H 108 H Pulse Rate [ Bilateral Throughout] Pulse Rate [ From Monitor] Respiratory 23 23 22 Rate Respiratory Rate [Bilateral Throughout] Blood Pressure 130/86 130/86 128/65 O2 Sat by Pulse 97 100 99 Oximetry O2 Sat by Pulse Oximetry [ Bilateral Throughout] 08/29/17 08/29/17 08/29/17 06:15 06:31 06:45 Temperature Pulse Rate 106 H 107 H 107 H Pulse Rate [ Bilateral Throughout] Pulse Rate [ From Monitor] Respiratory 22 22 22 Rate Respiratory Rate [Bilateral Throughout] Blood Pressure 123/70 133/74 132/75 O2 Sat by Pulse 96 98 99 Oximetry O2 Sat by Pulse Oximetry [ Bilateral Throughout] 08/29/17 08/29/17 08/29/17 07:00 07:15 07:30 Temperature Pulse Rate 106 H 108 H 107 H Pulse Rate [ Bilateral Throughout] Pulse Rate [ From Monitor] Respiratory 23 22 23 Rate Respiratory Rate [Bilateral Throughout] Blood Pressure 141/74 141/74 132/72 O2 Sat by Pulse 100 99 96 Oximetry O2 Sat by Pulse Oximetry [ Bilateral Throughout] 08/29/17 08/29/17 08/29/17 07:45 08:00 08:01 Temperature 98.6 F Pulse Rate 107 H 107 H Pulse Rate [ 108 H Bilateral Throughout] Pulse Rate [ 109 H From Monitor] Respiratory 25 H 24 23 Rate Respiratory 24 Rate [Bilateral Throughout] Blood Pressure 138/61 132/66 O2 Sat by Pulse 99 100 94 Oximetry O2 Sat by Pulse Oximetry [ Bilateral Throughout] 08/29/17 08/29/17 08/29/17 08:15 08:30 08:33 Temperature Pulse Rate 115 H 109 H 109 H Pulse Rate [ Bilateral Throughout] Pulse Rate [ From Monitor] Respiratory 21 22 22 Rate Respiratory Rate [Bilateral Throughout] Blood Pressure 122/67 125/71 125/71 O2 Sat by Pulse 100 99 100 Oximetry O2 Sat by Pulse Oximetry [ Bilateral Throughout] 08/29/17 08/29/17 08/29/17 08:45 09:00 09:01 Temperature Pulse Rate 107 H 108 H Pulse Rate [ 107 H Bilateral Throughout] Pulse Rate [ From Monitor] Respiratory 22 24 Rate Respiratory 18 Rate [Bilateral Throughout] Blood Pressure 112/72 124/74 O2 Sat by Pulse 99 100 Oximetry O2 Sat by Pulse Oximetry [ Bilateral Throughout] 08/29/17 08/29/17 08/29/17 09:15 09:30 09:45 Temperature Pulse Rate 109 H 108 H 108 H Pulse Rate [ Bilateral Throughout] Pulse Rate [ From Monitor] Respiratory 25 H 22 22 Rate Respiratory Rate [Bilateral Throughout] Blood Pressure 124/74 114/78 133/62 O2 Sat by Pulse 100 100 100 Oximetry O2 Sat by Pulse Oximetry [ Bilateral Throughout] 08/29/17 08/29/17 08/29/17 10:00 10:15 10:31 Temperature Pulse Rate 107 H 107 H 106 H Pulse Rate [ Bilateral Throughout] Pulse Rate [ From Monitor] Respiratory 23 21 20 Rate Respiratory Rate [Bilateral Throughout] Blood Pressure 137/53 135/50 135/60 O2 Sat by Pulse 100 100 100 Oximetry O2 Sat by Pulse Oximetry [ Bilateral Throughout] 08/29/17 08/29/17 08/29/17 12:00 12:15 12:30 Temperature 98.9 F Pulse Rate 100 H 100 H 102 H Pulse Rate [ Bilateral Throughout] Pulse Rate [ From Monitor] Respiratory 24 Rate Respiratory Rate [Bilateral Throughout] Blood Pressure 96/66 96/66 93/33 O2 Sat by Pulse Oximetry O2 Sat by Pulse 97 Oximetry [ Bilateral Throughout] 08/29/17 08/29/17 08/29/17 12:45 13:00 13:15 Temperature 98.9 F Pulse Rate 105 H 104 H 106 H Pulse Rate [ Bilateral Throughout] Pulse Rate [ From Monitor] Respiratory Rate Respiratory Rate [Bilateral Throughout] Blood Pressure 93/55 88/54 95/59 O2 Sat by Pulse Oximetry O2 Sat by Pulse Oximetry [ Bilateral Throughout] 08/29/17 08/29/17 08/29/17 13:34 13:48 14:00 Temperature Pulse Rate 108 H 107 H 110 H Pulse Rate [ Bilateral Throughout] Pulse Rate [ From Monitor] Respiratory Rate Respiratory Rate [Bilateral Throughout] Blood Pressure 104/64 93/51 83/66 O2 Sat by Pulse Oximetry O2 Sat by Pulse Oximetry [ Bilateral Throughout] 08/29/17 08/29/17 08/29/17 14:16 14:30 14:45 Temperature Pulse Rate 109 H 109 H 107 H Pulse Rate [ Bilateral Throughout] Pulse Rate [ From Monitor] Respiratory Rate Respiratory Rate [Bilateral Throughout] Blood Pressure 88/70 123/102 158/124 O2 Sat by Pulse Oximetry O2 Sat by Pulse Oximetry [ Bilateral Throughout] 08/29/17 08/29/17 08/29/17 14:56 14:57 14:59 Temperature Pulse Rate 109 H Pulse Rate [ 108 H 110 H Bilateral Throughout] Pulse Rate [ From Monitor] Respiratory Rate Respiratory 22 21 Rate [Bilateral Throughout] Blood Pressure 117/89 O2 Sat by Pulse Oximetry O2 Sat by Pulse Oximetry [ Bilateral Throughout] 08/29/17 15:27 Temperature 98.6 F Pulse Rate 108 H Pulse Rate [ Bilateral Throughout] Pulse Rate [ From Monitor] Respiratory 20 Rate Respiratory Rate [Bilateral Throughout] Blood Pressure 105/77 O2 Sat by Pulse Oximetry O2 Sat by Pulse 95 Oximetry [ Bilateral Throughout] Constitutional: no acute distress, alert Eyes: non-icteric ENT: oropharynx moist, other (NG tube in place in right nare) Neck: supple, no lymphadenopathy Effort: normal (on bipap, comfortable/nonlabored) Ascultation: Bilateral: clear (anteriorly) Cardiovascular: regular rate and rhythm (no mrg) Gastrointestinal: absent bowel sounds, non-tender, other (abdominal incision with dressing noted, obese) Extremities: no cyanosis, pink and warm, edema (3+ bilateral LE edema) Neurologic: normal mental status, non-focal exam, pupils equal and round Psychiatric: mood appropriate, affect normal CBC and BMP: 08/29/17 15:32 08/29/17 04:30 ABG, PT/INR, D-dimer: ABG POC ABG pH 7.469 (7.35-7.45) H 08/28/17 19:20 POC ABG pCO2 35.4 (35-45) 08/28/17 19:20 POC ABG pO2 240 (80-105) H 08/28/17 19:20 POC ABG HCO3 25.7 08/28/17 19:20 POC ABG Total CO2 27 08/28/17 19:20 POC ABG O2 Sat 100 08/28/17 19:20 PT/INR, D-dimer PT 14.9 Sec. (12.2-14.9) 08/28/17 22:30 INR 1.11 (0.87-1.13) 08/28/17 22:30 Abnormal lab findings: Abnormal Labs 08/08/17 08/08/17 08/09/17 21:23 21:31 11:19 WBC 15.7 H RBC 2.93 L Hgb 8.7 L Hct 26.8 L MCV RDW 19.2 H Plt Count Lymph % (Auto) [place] % (Auto) [place] # Seg Neutrophils % Seg Neuts % (Manual) Lymphocytes % (Manual) Monocytes % (Manual) Nucleated RBC % Seg Neutrophils # Seg Neutrophils # Man Lymphocytes # (Manual) Monocytes # (Manual) Eosinophils # (Manual) Basophils # (Manual) PT INR POC ABG pH 7.490 H POC ABG pCO2 POC ABG pO2 122 H Sodium Potassium Chloride Carbon Dioxide BUN Creatinine Glucose POC Glucose Calcium Phosphorus Magnesium AST ALT Alkaline Phosphatase Troponin T 0.133 H* C-Reactive Protein Total Protein Albumin HDL Cholesterol 26 L Miscellaneous Test Crossmatch 08/09/17 08/10/17 08/10/17 13:25 04:45 04:45 WBC 15.5 H RBC 2.97 L Hgb 8.9 L Hct 27.0 L MCV RDW 19.2 H Plt Count Lymph % (Auto) [place] % (Auto) [place] # Seg Neutrophils % Seg Neuts % (Manual) 73.0 H Lymphocytes % (Manual) 7.0 L Monocytes % (Manual) 14.0 H Nucleated RBC % Seg Neutrophils # Seg Neutrophils # Man 11.3 H Lymphocytes # (Manual) 1.1 L Monocytes # (Manual) 2.2 H Eosinophils # (Manual) Basophils # (Manual) 0.2 H PT INR POC ABG pH POC ABG pCO2 POC ABG pO2 Sodium Potassium 3.3 L Chloride 97.3 L Carbon Dioxide 21 L BUN 23 H Creatinine 6.5 H Glucose POC Glucose Calcium 7.3 L Phosphorus Magnesium AST ALT Alkaline Phosphatase 138 H Troponin T 0.132 H* C-Reactive Protein Total Protein 4.8 L Albumin 1.4 L HDL Cholesterol Miscellaneous Test Crossmatch 08/11/17 08/11/17 08/12/17 04:00 04:00 05:50 WBC 19.3 H RBC 3.10 L Hgb 9.5 L Hct 28.2 L MCV RDW 19.2 H Plt Count 463 H Lymph % (Auto) 7.5 L [place] % (Auto) 14.6 H [place] # 2.8 H Seg Neutrophils % 77.0 H Seg Neuts % (Manual) Lymphocytes % (Manual) Monocytes % (Manual) Nucleated RBC % Seg Neutrophils # 14.8 H Seg Neutrophils # Man Lymphocytes # (Manual) Monocytes # (Manual) Eosinophils # (Manual) Basophils # (Manual) PT INR POC ABG pH POC ABG pCO2 POC ABG pO2 Sodium 136 L 136 L Potassium 3.3 L Chloride 96.3 L 96.6 L Carbon Dioxide BUN 26 H 26 H Creatinine 6.4 H 6.2 H Glucose 135 H 133 H POC Glucose Calcium 8.2 L Phosphorus Magnesium 1.30 L AST ALT Alkaline Phosphatase 139 H Troponin T C-Reactive Protein Total Protein 5.5 L Albumin 1.7 L HDL Cholesterol Miscellaneous Test Crossmatch 08/12/17 08/12/17 08/12/17 05:50 05:50 05:50 WBC 20.1 H RBC 3.06 L Hgb 9.3 L Hct 27.9 L MCV RDW 18.4 H Plt Count 471 H Lymph % (Auto) [place] % (Auto) [place] # Seg Neutrophils % Seg Neuts % (Manual) 85.0 H Lymphocytes % (Manual) 8.0 L Monocytes % (Manual) Nucleated RBC % Seg Neutrophils # Seg Neutrophils # Man 17.1 H Lymphocytes # (Manual) Monocytes # (Manual) 1.0 H Eosinophils # (Manual) Basophils # (Manual) PT 15.2 H INR 1.14 H POC ABG pH POC ABG pCO2 POC ABG pO2 Sodium Potassium Chloride Carbon Dioxide BUN Creatinine Glucose POC Glucose Calcium Phosphorus Magnesium AST ALT Alkaline Phosphatase Troponin T C-Reactive Protein 28.90 H Total Protein Albumin HDL Cholesterol Miscellaneous Test Crossmatch 08/12/17 08/13/17 08/13/17 16:23 06:14 06:14 WBC 21.8 H RBC 3.11 L Hgb 9.4 L Hct 28.2 L MCV RDW 18.2 H Plt Count 492 H Lymph % (Auto) [place] % (Auto) [place] # Seg Neutrophils % Seg Neuts % (Manual) 73.0 H Lymphocytes % (Manual) 2.0 L Monocytes % (Manual) 15 H Nucleated RBC % Seg Neutrophils # Seg Neutrophils # Man 15.9 H Lymphocytes # (Manual) 0.4 L Monocytes # (Manual) 2.4 H Eosinophils # (Manual) Basophils # (Manual) PT INR POC ABG pH POC ABG pCO2 POC ABG pO2 Sodium Potassium Chloride 96.2 L Carbon Dioxide BUN 28 H Creatinine 5.6 H Glucose 114 H POC Glucose Calcium Phosphorus Magnesium AST ALT Alkaline Phosphatase Troponin T C-Reactive Protein 26.10 H Total Protein Albumin HDL Cholesterol Miscellaneous Test Crossmatch 08/13/17 08/14/17 08/14/17 16:39 04:00 04:00 WBC 22.1 H RBC 3.25 L Hgb 9.9 L Hct 29.5 L MCV RDW 17.9 H Plt Count 525 H Lymph % (Auto) [place] % (Auto) [place] # Seg Neutrophils % Seg Neuts % (Manual) 74.0 H Lymphocytes % (Manual) 8.0 L Monocytes % (Manual) 12.0 H Nucleated RBC % Seg Neutrophils # Seg Neutrophils # Man 16.4 H Lymphocytes # (Manual) Monocytes # (Manual) 2.7 H Eosinophils # (Manual) Basophils # (Manual) PT INR POC ABG pH POC ABG pCO2 POC ABG pO2 Sodium 134 L Potassium 3.3 L Chloride 93.3 L Carbon Dioxide BUN 27 H Creatinine 6.0 H Glucose 152 H POC Glucose 151 H Calcium Phosphorus Magnesium AST ALT Alkaline Phosphatase Troponin T C-Reactive Protein Total Protein Albumin HDL Cholesterol Miscellaneous Test Crossmatch 08/15/17 08/16/17 08/16/17 09:10 09:50 09:50 WBC 31.1 H RBC 3.21 L Hgb 9.6 L Hct 29.3 L MCV RDW 18.1 H Plt Count 642 H Lymph % (Auto) [place] % (Auto) [place] # Seg Neutrophils % Seg Neuts % (Manual) 74.0 H Lymphocytes % (Manual) 4.0 L Monocytes % (Manual) 9.0 H Nucleated RBC % Seg Neutrophils # Seg Neutrophils # Man 23.0 H Lymphocytes # (Manual) Monocytes # (Manual) 2.8 H Eosinophils # (Manual) Basophils # (Manual) PT INR POC ABG pH POC ABG pCO2 POC ABG pO2 Sodium 136 L 136 L Potassium 3.5 L Chloride 97.6 L 94.9 L Carbon Dioxide BUN 27 H 28 H Creatinine 5.6 H 5.5 H Glucose 117 H 103 H POC Glucose Calcium Phosphorus Magnesium AST ALT Alkaline Phosphatase 137 H Troponin T C-Reactive Protein Total Protein 5.4 L Albumin 1.5 L HDL Cholesterol Miscellaneous Test Crossmatch 08/16/17 08/17/17 08/17/17 09:50 05:00 06:26 WBC RBC Hgb Hct MCV RDW Plt Count Lymph % (Auto) [place] % (Auto) [place] # Seg Neutrophils % Seg Neuts % (Manual) Lymphocytes % (Manual) Monocytes % (Manual) Nucleated RBC % Seg Neutrophils # Seg Neutrophils # Man Lymphocytes # (Manual) Monocytes # (Manual) Eosinophils # (Manual) Basophils # (Manual) PT INR POC ABG pH POC ABG pCO2 POC ABG pO2 Sodium 134 L Potassium 3.0 L Chloride 97.8 L Carbon Dioxide BUN 30 H Creatinine 5.3 H Glucose 147 H POC Glucose 165 H Calcium 7.5 L Phosphorus Magnesium AST ALT Alkaline Phosphatase Troponin T C-Reactive Protein 32.30 H Total Protein Albumin HDL Cholesterol Miscellaneous Test Crossmatch 08/17/17 08/17/17 08/17/17 10:56 11:20 11:20 WBC 39.1 H RBC 3.10 L Hgb 9.2 L Hct 28.6 L MCV RDW 18.3 H Plt Count 580 H Lymph % (Auto) [place] % (Auto) [place] # Seg Neutrophils % Seg Neuts % (Manual) 89.5 H Lymphocytes % (Manual) 3.5 L Monocytes % (Manual) Nucleated RBC % Seg Neutrophils # Seg Neutrophils # Man 35.0 H Lymphocytes # (Manual) Monocytes # (Manual) 2.5 H Eosinophils # (Manual) Basophils # (Manual) 0.2 H PT INR POC ABG pH 7.464 H POC ABG pCO2 34.1 L POC ABG pO2 75 L Sodium Potassium Chloride Carbon Dioxide BUN Creatinine Glucose POC Glucose Calcium Phosphorus Magnesium AST ALT Alkaline Phosphatase Troponin T C-Reactive Protein Total Protein Albumin HDL Cholesterol Miscellaneous Test Flexitest 1 H Crossmatch 08/17/17 08/17/17 08/17/17 11:20 16:57 20:20 WBC 34.4 H RBC 2.81 L Hgb 8.4 L Hct 26.0 L MCV RDW 17.8 H Plt Count 455 H Lymph % (Auto) [place] % (Auto) [place] # Seg Neutrophils % Seg Neuts % (Manual) Lymphocytes % (Manual) 3.5 L Monocytes % (Manual) Nucleated RBC % 5.0 H Seg Neutrophils # Seg Neutrophils # Man 16.5 H Lymphocytes # (Manual) Monocytes # (Manual) 1.0 H Eosinophils # (Manual) Basophils # (Manual) PT 16.0 H INR 1.29 H POC ABG pH POC ABG pCO2 POC ABG pO2 Sodium 135 L Potassium 2.9 L* Chloride Carbon Dioxide 20 L BUN 32 H Creatinine 5.4 H Glucose 129 H POC Glucose Calcium 7.5 L Phosphorus Magnesium 1.50 L AST 85 H ALT Alkaline Phosphatase Troponin T C-Reactive Protein Total Protein 4.0 L D Albumin 1.6 L HDL Cholesterol Miscellaneous Test Crossmatch 08/17/17 08/17/17 08/18/17 20:54 23:47 04:26 WBC RBC Hgb Hct MCV RDW Plt Count Lymph % (Auto) [place] % (Auto) [place] # Seg Neutrophils % Seg Neuts % (Manual) Lymphocytes % (Manual) Monocytes % (Manual) Nucleated RBC % Seg Neutrophils # Seg Neutrophils # Man Lymphocytes # (Manual) Monocytes # (Manual) Eosinophils # (Manual) Basophils # (Manual) PT INR POC ABG pH 7.557 H POC ABG pCO2 23.1 L 29.0 L POC ABG pO2 187 H 148 H Sodium Potassium Chloride Carbon Dioxide BUN Creatinine Glucose POC Glucose 188 H Calcium Phosphorus Magnesium AST ALT Alkaline Phosphatase Troponin T C-Reactive Protein Total Protein Albumin HDL Cholesterol Miscellaneous Test Crossmatch 08/18/17 08/18/17 08/18/17 05:51 11:44 17:07 WBC RBC Hgb Hct MCV RDW Plt Count Lymph % (Auto) [place] % (Auto) [place] # Seg Neutrophils % Seg Neuts % (Manual) Lymphocytes % (Manual) Monocytes % (Manual) Nucleated RBC % Seg Neutrophils # Seg Neutrophils # Man Lymphocytes # (Manual) Monocytes # (Manual) Eosinophils # (Manual) Basophils # (Manual) PT INR POC ABG pH POC ABG pCO2 POC ABG pO2 Sodium Potassium Chloride Carbon Dioxide BUN Creatinine Glucose POC Glucose 202 H 195 H 182 H Calcium Phosphorus Magnesium AST ALT Alkaline Phosphatase Troponin T C-Reactive Protein Total Protein Albumin HDL Cholesterol Miscellaneous Test Crossmatch 08/18/17 08/18/17 08/18/17 23:45 Unknown Unknown WBC 39.0 H RBC 2.84 L Hgb 8.4 L Hct 26.5 L MCV RDW 18.0 H Plt Count 476 H Lymph % (Auto) [place] % (Auto) [place] # Seg Neutrophils % Seg Neuts % (Manual) Lymphocytes % (Manual) 7.0 L Monocytes % (Manual) 10.0 H Nucleated RBC % 3.0 H Seg Neutrophils # Seg Neutrophils # Man 15.6 H Lymphocytes # (Manual) Monocytes # (Manual) 3.9 H Eosinophils # (Manual) Basophils # (Manual) PT INR POC ABG pH POC ABG pCO2 POC ABG pO2 Sodium Potassium Chloride Carbon Dioxide 19 L BUN 34 H Creatinine 5.6 H Glucose 201 H POC Glucose 163 H Calcium 7.8 L Phosphorus 1.90 L D Magnesium 1.60 L AST ALT Alkaline Phosphatase Troponin T C-Reactive Protein Total Protein Albumin HDL Cholesterol Miscellaneous Test Crossmatch 08/19/17 08/19/17 08/19/17 04:18 05:00 05:00 WBC 40.0 H RBC 2.46 L Hgb 7.3 L Hct 22.6 L MCV RDW 18.1 H Plt Count Lymph % (Auto) [place] % (Auto) [place] # Seg Neutrophils % Seg Neuts % (Manual) Lymphocytes % (Manual) 8.0 L Monocytes % (Manual) Nucleated RBC % 2.0 H Seg Neutrophils # Seg Neutrophils # Man 16.4 H Lymphocytes # (Manual) Monocytes # (Manual) 1.2 H Eosinophils # (Manual) 1.2 H Basophils # (Manual) PT INR POC ABG pH 7.463 H POC ABG pCO2 29.7 L POC ABG pO2 134 H Sodium Potassium 5.1 H D Chloride Carbon Dioxide 20 L BUN 40 H Creatinine 5.3 H Glucose 128 H POC Glucose Calcium 7.8 L Phosphorus 1.90 L Magnesium AST ALT Alkaline Phosphatase Troponin T C-Reactive Protein Total Protein Albumin HDL Cholesterol Miscellaneous Test Crossmatch 08/19/17 08/19/17 08/19/17 05:19 07:37 09:52 WBC 45.0 H* RBC 2.50 L Hgb 7.5 L Hct 24.5 L MCV 98 H RDW 18.4 H Plt Count Lymph % (Auto) [place] % (Auto) [place] # Seg Neutrophils % Seg Neuts % (Manual) 81.5 H Lymphocytes % (Manual) 4.0 L Monocytes % (Manual) Nucleated RBC % 1.0 H Seg Neutrophils # Seg Neutrophils # Man 36.7 H Lymphocytes # (Manual) Monocytes # (Manual) Eosinophils # (Manual) Basophils # (Manual) PT INR POC ABG pH POC ABG pCO2 POC ABG pO2 Sodium Potassium Chloride Carbon Dioxide BUN Creatinine Glucose POC Glucose 142 H Calcium Phosphorus Magnesium AST ALT Alkaline Phosphatase Troponin T C-Reactive Protein 34.20 H Total Protein Albumin HDL Cholesterol Miscellaneous Test Crossmatch 08/19/17 08/19/17 08/20/17 11:16 18:12 00:35 WBC RBC Hgb Hct MCV RDW Plt Count Lymph % (Auto) [place] % (Auto) [place] # Seg Neutrophils % Seg Neuts % (Manual) Lymphocytes % (Manual) Monocytes % (Manual) Nucleated RBC % Seg Neutrophils # Seg Neutrophils # Man Lymphocytes # (Manual) Monocytes # (Manual) Eosinophils # (Manual) Basophils # (Manual) PT INR POC ABG pH POC ABG pCO2 POC ABG pO2 Sodium Potassium Chloride Carbon Dioxide BUN Creatinine Glucose POC Glucose 143 H 137 H 164 H Calcium Phosphorus Magnesium AST ALT Alkaline Phosphatase Troponin T C-Reactive Protein Total Protein Albumin HDL Cholesterol Miscellaneous Test Crossmatch 08/20/17 08/20/17 08/20/17 03:20 03:20 04:00 WBC 48.0 H* RBC 2.55 L Hgb 7.6 L Hct 23.4 L MCV RDW 18.4 H Plt Count Lymph % (Auto) [place] % (Auto) [place] # Seg Neutrophils % Seg Neuts % (Manual) 90.0 H Lymphocytes % (Manual) 3.0 L Monocytes % (Manual) Nucleated RBC % Seg Neutrophils # Seg Neutrophils # Man 43.2 H Lymphocytes # (Manual) Monocytes # (Manual) 1.4 H Eosinophils # (Manual) 0.5 H Basophils # (Manual) PT INR POC ABG pH 7.499 H POC ABG pCO2 29.1 L POC ABG pO2 Sodium 135 L Potassium Chloride Carbon Dioxide BUN 28 H Creatinine 4.0 H Glucose 140 H POC Glucose Calcium 8.0 L Phosphorus 1.70 L Magnesium 1.60 L AST ALT Alkaline Phosphatase Troponin T C-Reactive Protein Total Protein Albumin HDL Cholesterol Miscellaneous Test Crossmatch 08/20/17 08/20/17 08/20/17 05:02 12:05 13:12 WBC RBC Hgb Hct MCV RDW Plt Count Lymph % (Auto) [place] % (Auto) [place] # Seg Neutrophils % Seg Neuts % (Manual) Lymphocytes % (Manual) Monocytes % (Manual) Nucleated RBC % Seg Neutrophils # Seg Neutrophils # Man Lymphocytes # (Manual) Monocytes # (Manual) Eosinophils # (Manual) Basophils # (Manual) PT INR POC ABG pH 7.537 H POC ABG pCO2 27.9 L POC ABG pO2 79 L Sodium Potassium Chloride Carbon Dioxide BUN Creatinine Glucose POC Glucose 158 H 203 H Calcium Phosphorus Magnesium AST ALT Alkaline Phosphatase Troponin T C-Reactive Protein Total Protein Albumin HDL Cholesterol Miscellaneous Test Crossmatch 08/20/17 08/21/17 08/21/17 17:13 00:47 03:14 WBC RBC Hgb Hct MCV RDW Plt Count Lymph % (Auto) [place] % (Auto) [place] # Seg Neutrophils % Seg Neuts % (Manual) Lymphocytes % (Manual) Monocytes % (Manual) Nucleated RBC % Seg Neutrophils # Seg Neutrophils # Man Lymphocytes # (Manual) Monocytes # (Manual) Eosinophils # (Manual) Basophils # (Manual) PT INR POC ABG pH 7.481 H POC ABG pCO2 29.6 L POC ABG pO2 Sodium Potassium Chloride Carbon Dioxide BUN Creatinine Glucose POC Glucose 188 H 109 H Calcium Phosphorus Magnesium AST ALT Alkaline Phosphatase Troponin T C-Reactive Protein Total Protein Albumin HDL Cholesterol Miscellaneous Test Crossmatch 08/21/17 08/21/17 08/21/17 05:05 06:50 06:50 WBC 44.7 H* RBC 2.41 L Hgb 7.1 L Hct 22.1 L MCV RDW 18.3 H Plt Count Lymph % (Auto) [place] % (Auto) [place] # Seg Neutrophils % Seg Neuts % (Manual) 89.0 H Lymphocytes % (Manual) 0 L Monocytes % (Manual) Nucleated RBC % 1.0 H Seg Neutrophils # Seg Neutrophils # Man 39.8 H Lymphocytes # (Manual) 0.0 L Monocytes # (Manual) 1.3 H Eosinophils # (Manual) Basophils # (Manual) PT INR POC ABG pH POC ABG pCO2 POC ABG pO2 Sodium 135 L Potassium Chloride Carbon Dioxide BUN 39 H Creatinine 4.4 H Glucose 147 H POC Glucose 166 H Calcium 8.1 L Phosphorus Magnesium AST ALT < 5 L Alkaline Phosphatase 164 H Troponin T C-Reactive Protein Total Protein 4.7 L Albumin 1.4 L HDL Cholesterol Miscellaneous Test Crossmatch 08/21/17 08/21/17 08/21/17 08:00 12:21 17:02 WBC RBC Hgb Hct MCV RDW Plt Count Lymph % (Auto) [place] % (Auto) [place] # Seg Neutrophils % Seg Neuts % (Manual) Lymphocytes % (Manual) Monocytes % (Manual) Nucleated RBC % Seg Neutrophils # Seg Neutrophils # Man Lymphocytes # (Manual) Monocytes # (Manual) Eosinophils # (Manual) Basophils # (Manual) PT INR POC ABG pH POC ABG pCO2 POC ABG pO2 Sodium Potassium Chloride Carbon Dioxide BUN Creatinine Glucose POC Glucose 147 H 135 H Calcium Phosphorus Magnesium AST ALT Alkaline Phosphatase Troponin T C-Reactive Protein Total Protein Albumin HDL Cholesterol Miscellaneous Test Crossmatch See Detail 08/21/17 08/22/17 08/22/17 23:38 03:40 03:40 WBC 42.5 H* RBC 2.88 L Hgb 8.5 L Hct 26.3 L MCV RDW 17.9 H Plt Count Lymph % (Auto) [place] % (Auto) [place] # Seg Neutrophils % Seg Neuts % (Manual) Lymphocytes % (Manual) 5.0 L Monocytes % (Manual) Nucleated RBC % Seg Neutrophils # Seg Neutrophils # Man 19.6 H Lymphocytes # (Manual) Monocytes # (Manual) 2.6 H Eosinophils # (Manual) Basophils # (Manual) PT INR POC ABG pH POC ABG pCO2 POC ABG pO2 Sodium Potassium 3.3 L D Chloride Carbon Dioxide BUN 27 H Creatinine 2.9 H Glucose 144 H POC Glucose 251 H Calcium 8.0 L Phosphorus 2.40 L Magnesium AST ALT Alkaline Phosphatase Troponin T C-Reactive Protein Total Protein Albumin HDL Cholesterol Miscellaneous Test Crossmatch 08/22/17 08/22/17 08/22/17 06:37 08:50 11:25 WBC RBC Hgb Hct MCV RDW Plt Count Lymph % (Auto) [place] % (Auto) [place] # Seg Neutrophils % Seg Neuts % (Manual) Lymphocytes % (Manual) Monocytes % (Manual) Nucleated RBC % Seg Neutrophils # Seg Neutrophils # Man Lymphocytes # (Manual) Monocytes # (Manual) Eosinophils # (Manual) Basophils # (Manual) PT INR POC ABG pH POC ABG pCO2 POC ABG pO2 Sodium Potassium Chloride Carbon Dioxide BUN Creatinine Glucose POC Glucose 152 H 175 H Calcium Phosphorus Magnesium AST ALT Alkaline Phosphatase Troponin T C-Reactive Protein Total Protein Albumin HDL Cholesterol Miscellaneous Test Flexitest 1 H Crossmatch 08/22/17 08/22/17 08/22/17 16:25 17:56 23:03 WBC RBC Hgb Hct MCV RDW Plt Count Lymph % (Auto) [place] % (Auto) [place] # Seg Neutrophils % Seg Neuts % (Manual) Lymphocytes % (Manual) Monocytes % (Manual) Nucleated RBC % Seg Neutrophils # Seg Neutrophils # Man Lymphocytes # (Manual) Monocytes # (Manual) Eosinophils # (Manual) Basophils # (Manual) PT INR POC ABG pH POC ABG pCO2 POC ABG pO2 Sodium Potassium Chloride Carbon Dioxide BUN Creatinine Glucose POC Glucose 232 H 192 H Calcium Phosphorus Magnesium AST ALT Alkaline Phosphatase Troponin T C-Reactive Protein 30.70 H Total Protein Albumin HDL Cholesterol Miscellaneous Test Crossmatch 08/23/17 08/23/17 08/23/17 05:36 08:50 12:14 WBC RBC Hgb Hct MCV RDW Plt Count Lymph % (Auto) [place] % (Auto) [place] # Seg Neutrophils % Seg Neuts % (Manual) Lymphocytes % (Manual) Monocytes % (Manual) Nucleated RBC % Seg Neutrophils # Seg Neutrophils # Man Lymphocytes # (Manual) Monocytes # (Manual) Eosinophils # (Manual) Basophils # (Manual) PT INR POC ABG pH POC ABG pCO2 POC ABG pO2 Sodium Potassium Chloride 107.1 H Carbon Dioxide BUN 49 H Creatinine 3.3 H Glucose 172 H POC Glucose 206 H 238 H Calcium Phosphorus Magnesium 2.40 H AST ALT Alkaline Phosphatase Troponin T C-Reactive Protein Total Protein Albumin HDL Cholesterol Miscellaneous Test Crossmatch 08/23/17 08/23/17 08/24/17 17:21 23:13 04:00 WBC 34.2 H RBC 2.86 L Hgb 8.4 L Hct 25.9 L MCV RDW 17.9 H Plt Count Lymph % (Auto) [place] % (Auto) [place] # Seg Neutrophils % Seg Neuts % (Manual) 85.0 H Lymphocytes % (Manual) 0.5 L Monocytes % (Manual) Nucleated RBC % 1.0 H Seg Neutrophils # Seg Neutrophils # Man 29.1 H Lymphocytes # (Manual) 0.2 L Monocytes # (Manual) 2.4 H Eosinophils # (Manual) Basophils # (Manual) PT INR POC ABG pH POC ABG pCO2 POC ABG pO2 Sodium Potassium Chloride Carbon Dioxide BUN Creatinine Glucose POC Glucose 226 H 183 H Calcium Phosphorus Magnesium AST ALT Alkaline Phosphatase Troponin T C-Reactive Protein Total Protein Albumin HDL Cholesterol Miscellaneous Test Crossmatch 08/24/17 08/24/17 08/24/17 05:06 09:30 12:04 WBC RBC Hgb Hct MCV RDW Plt Count Lymph % (Auto) [place] % (Auto) [place] # Seg Neutrophils % Seg Neuts % (Manual) Lymphocytes % (Manual) Monocytes % (Manual) Nucleated RBC % Seg Neutrophils # Seg Neutrophils # Man Lymphocytes # (Manual) Monocytes # (Manual) Eosinophils # (Manual) Basophils # (Manual) PT INR POC ABG pH POC ABG pCO2 POC ABG pO2 Sodium Potassium Chloride Carbon Dioxide BUN 46 H Creatinine 2.5 H Glucose 176 H POC Glucose 201 H 181 H Calcium Phosphorus Magnesium AST ALT Alkaline Phosphatase Troponin T C-Reactive Protein Total Protein Albumin HDL Cholesterol Miscellaneous Test Crossmatch 08/24/17 08/24/17 08/25/17 18:04 23:05 05:05 WBC RBC Hgb Hct MCV RDW Plt Count Lymph % (Auto) [place] % (Auto) [place] # Seg Neutrophils % Seg Neuts % (Manual) Lymphocytes % (Manual) Monocytes % (Manual) Nucleated RBC % Seg Neutrophils # Seg Neutrophils # Man Lymphocytes # (Manual) Monocytes # (Manual) Eosinophils # (Manual) Basophils # (Manual) PT INR POC ABG pH POC ABG pCO2 POC ABG pO2 Sodium Potassium Chloride Carbon Dioxide BUN Creatinine Glucose POC Glucose 189 H 175 H 190 H Calcium Phosphorus Magnesium AST ALT Alkaline Phosphatase Troponin T C-Reactive Protein Total Protein Albumin HDL Cholesterol Miscellaneous Test Crossmatch 08/25/17 08/25/17 08/26/17 07:02 11:53 05:30 WBC 33.5 H RBC 2.47 L Hgb 7.3 L Hct 23.0 L MCV RDW 21.3 H Plt Count Lymph % (Auto) [place] % (Auto) [place] # Seg Neutrophils % Seg Neuts % (Manual) 92.0 H Lymphocytes % (Manual) 1.0 L Monocytes % (Manual) Nucleated RBC % Seg Neutrophils # Seg Neutrophils # Man 30.8 H Lymphocytes # (Manual) 0.3 L Monocytes # (Manual) Eosinophils # (Manual) Basophils # (Manual) PT INR POC ABG pH POC ABG pCO2 POC ABG pO2 Sodium Potassium Chloride Carbon Dioxide BUN 32 H Creatinine 5.0 H D Glucose 117 H POC Glucose 191 H Calcium 8.0 L Phosphorus Magnesium AST ALT Alkaline Phosphatase Troponin T C-Reactive Protein Total Protein Albumin HDL Cholesterol Miscellaneous Test Crossmatch 08/26/17 08/26/17 08/26/17 05:30 06:44 13:26 WBC RBC Hgb Hct MCV RDW Plt Count Lymph % (Auto) [place] % (Auto) [place] # Seg Neutrophils % Seg Neuts % (Manual) Lymphocytes % (Manual) Monocytes % (Manual) Nucleated RBC % Seg Neutrophils # Seg Neutrophils # Man Lymphocytes # (Manual) Monocytes # (Manual) Eosinophils # (Manual) Basophils # (Manual) PT INR POC ABG pH POC ABG pCO2 POC ABG pO2 Sodium Potassium 5.2 H Chloride Carbon Dioxide BUN 80 H Creatinine 3.4 H Glucose 193 H POC Glucose 232 H 207 H Calcium 8.3 L Phosphorus 6.80 H D Magnesium 2.60 H AST 135 H ALT Alkaline Phosphatase 211 H Troponin T C-Reactive Protein Total Protein 4.8 L Albumin 2.0 L HDL Cholesterol Miscellaneous Test Crossmatch 08/27/17 08/27/17 08/27/17 01:08 06:20 06:20 WBC 35.0 H RBC 2.75 L Hgb 8.4 L Hct 25.1 L MCV RDW 21.8 H Plt Count Lymph % (Auto) [place] % (Auto) [place] # Seg Neutrophils % Seg Neuts % (Manual) Lymphocytes % (Manual) 4.5 L Monocytes % (Manual) Nucleated RBC % Seg Neutrophils # Seg Neutrophils # Man 31.9 H Lymphocytes # (Manual) Monocytes # (Manual) 1.2 H Eosinophils # (Manual) Basophils # (Manual) PT INR POC ABG pH POC ABG pCO2 POC ABG pO2 Sodium Potassium Chloride Carbon Dioxide BUN 61 H Creatinine 2.6 H Glucose 184 H POC Glucose 146 H Calcium Phosphorus 4.90 H D Magnesium AST ALT Alkaline Phosphatase Troponin T C-Reactive Protein Total Protein Albumin HDL Cholesterol Miscellaneous Test Crossmatch 08/27/17 08/27/17 08/27/17 07:01 09:17 12:52 WBC RBC Hgb Hct MCV RDW Plt Count Lymph % (Auto) [place] % (Auto) [place] # Seg Neutrophils % Seg Neuts % (Manual) Lymphocytes % (Manual) Monocytes % (Manual) Nucleated RBC % Seg Neutrophils # Seg Neutrophils # Man Lymphocytes # (Manual) Monocytes # (Manual) Eosinophils # (Manual) Basophils # (Manual) PT INR POC ABG pH POC ABG pCO2 POC ABG pO2 Sodium Potassium Chloride Carbon Dioxide BUN Creatinine Glucose POC Glucose 165 H 198 H 218 H Calcium Phosphorus Magnesium AST ALT Alkaline Phosphatase Troponin T C-Reactive Protein Total Protein Albumin HDL Cholesterol Miscellaneous Test Crossmatch 08/27/17 08/28/17 08/28/17 17:27 02:13 06:46 WBC RBC Hgb Hct MCV RDW Plt Count Lymph % (Auto) [place] % (Auto) [place] # Seg Neutrophils % Seg Neuts % (Manual) Lymphocytes % (Manual) Monocytes % (Manual) Nucleated RBC % Seg Neutrophils # Seg Neutrophils # Man Lymphocytes # (Manual) Monocytes # (Manual) Eosinophils # (Manual) Basophils # (Manual) PT INR POC ABG pH POC ABG pCO2 POC ABG pO2 Sodium Potassium Chloride Carbon Dioxide BUN Creatinine Glucose POC Glucose 151 H 155 H 230 H Calcium Phosphorus Magnesium AST ALT Alkaline Phosphatase Troponin T C-Reactive Protein Total Protein Albumin HDL Cholesterol Miscellaneous Test Crossmatch 08/28/17 08/28/17 08/28/17 06:53 06:53 08:19 WBC 31.1 H RBC 2.26 L Hgb 6.8 L Hct 20.9 L MCV RDW 21.7 H Plt Count Lymph % (Auto) [place] % (Auto) [place] # Seg Neutrophils % Seg Neuts % (Manual) 83.0 H Lymphocytes % (Manual) 4.0 L Monocytes % (Manual) Nucleated RBC % Seg Neutrophils # Seg Neutrophils # Man 25.8 H Lymphocytes # (Manual) Monocytes # (Manual) Eosinophils # (Manual) Basophils # (Manual) PT INR POC ABG pH POC ABG pCO2 POC ABG pO2 Sodium Potassium Chloride Carbon Dioxide BUN 81 H Creatinine 3.4 H Glucose 218 H POC Glucose 239 H Calcium Phosphorus 4.90 H Magnesium AST ALT Alkaline Phosphatase Troponin T C-Reactive Protein Total Protein Albumin HDL Cholesterol Miscellaneous Test Crossmatch 08/28/17 08/28/17 08/28/17 11:56 13:05 13:29 WBC RBC Hgb Hct MCV RDW Plt Count Lymph % (Auto) [place] % (Auto) [place] # Seg Neutrophils % Seg Neuts % (Manual) Lymphocytes % (Manual) Monocytes % (Manual) Nucleated RBC % Seg Neutrophils # Seg Neutrophils # Man Lymphocytes # (Manual) Monocytes # (Manual) Eosinophils # (Manual) Basophils # (Manual) PT 16.7 H INR 1.29 H POC ABG pH POC ABG pCO2 POC ABG pO2 338 H Sodium Potassium Chloride Carbon Dioxide BUN Creatinine Glucose POC Glucose Calcium Phosphorus Magnesium AST ALT Alkaline Phosphatase Troponin T C-Reactive Protein Total Protein Albumin HDL Cholesterol Miscellaneous Test Crossmatch See Detail 08/28/17 08/28/17 08/29/17 16:22 19:20 04:24 WBC RBC Hgb Hct MCV RDW Plt Count Lymph % (Auto) [place] % (Auto) [place] # Seg Neutrophils % Seg Neuts % (Manual) Lymphocytes % (Manual) Monocytes % (Manual) Nucleated RBC % Seg Neutrophils # Seg Neutrophils # Man Lymphocytes # (Manual) Monocytes # (Manual) Eosinophils # (Manual) Basophils # (Manual) PT INR POC ABG pH 7.469 H POC ABG pCO2 POC ABG pO2 240 H Sodium Potassium Chloride Carbon Dioxide BUN Creatinine Glucose POC Glucose 209 H 195 H Calcium Phosphorus Magnesium AST ALT Alkaline Phosphatase Troponin T C-Reactive Protein Total Protein Albumin HDL Cholesterol Miscellaneous Test Crossmatch 08/29/17 08/29/17 08/29/17 04:30 04:30 12:30 WBC 44.9 H* RBC Hgb Hct MCV RDW 23.1 H Plt Count Lymph % (Auto) [place] % (Auto) [place] # Seg Neutrophils % Seg Neuts % (Manual) 38.0 L Lymphocytes % (Manual) 10.0 L Monocytes % (Manual) 10.0 H Nucleated RBC % 6.0 H Seg Neutrophils # Seg Neutrophils # Man 17.1 H Lymphocytes # (Manual) Monocytes # (Manual) 4.5 H Eosinophils # (Manual) Basophils # (Manual) PT INR POC ABG pH POC ABG pCO2 POC ABG pO2 Sodium Potassium Chloride Carbon Dioxide BUN 61 H Creatinine 2.4 H Glucose 226 H POC Glucose Calcium Phosphorus Magnesium AST ALT Alkaline Phosphatase Troponin T C-Reactive Protein 19.10 H Total Protein Albumin HDL Cholesterol Miscellaneous Test Crossmatch Chest x-ray: report reviewed, image reviewed
[2017-08-29] MEDS ORDERED: TPN ADULT 1,800 ML IV SCH (20:00)
--- NOTE | 2017-08-29 22:07 | Progress Note ---
Assessment and Plan - Patient Problems (1) Leukocytosis Current Visit: Yes Status: Acute Qualifiers: Leukocytosis type: L Plan to address problem: See notes above. make sure that PD access is clean also. see notes. Probably infection from the infected PD catheter. improving. back up again. (2) Anemia Current Visit: Yes Status: Acute Qualifiers: Anemia type: A Iron deficiency anemia type: I Vitamin B12 deficiency anemia type: V Folate deficiency anemia type: F Bone marrow failure anemia type: B Hemolytic anemia type: H Other causes of anemia: O Chronic kidney disease stage: C Plan to address problem: see notes , monitor labs,. see notes above. continue to monitor labs with you. blood transfusion. S/P replacement transfusion. Subjective Date of service: 08/29/17 Principal diagnosis: LGI bleeding Interval history: Patient seen today/examined, labs reviewed, case d/w she, and family.complaints of abdominal pain. Patient resting in bed in the ICU, post vascular procedure. labs reviewed, Reactive thrombocytosis, anemia of CD, leukocytosis from infection vs inflamatory process. Patient seen/examined, in bed in the ICU, on the vent post surgery.Labs reviewed , notes reviewed. will continue to monitor labs/patient with you. Replacement transfusion, if /when indicated. patient seen/examined, SBP75, on pressors., lethargic, on the vent, labs reviewed, wbc 39,000 Patient seen/examined, case reviewed, d/w her sister at the bed side. Patient seen/examined, labs reviewed, notes reviewed. severe septic shock from infected PD catheter The high wbc is all infection related. H?H low, and may get replacement transfusion with the next HD. Prognosis remain quite poor. Patient seen/examined, extubated, now on V Mask. labs reviewed. patient seen/examined, resting in bed, still some what lethargic . labs reviewed. Patient seen/examined, resting in bed., some difficulty with breathing./ lethargic. patient seen/examined, resting in bed, looked much better labs reviewed, and fair over all. Patient seen/examined, resting in bed, labs reviewed, case d/w her. Patient seen/examined, resting in bed on BIPAP., labs reviewed. patient seen/examined, resting in bed, on Bipap.labs reviewed, fairly stable. Patient seen today, resting in bed, labs reviewed, H/H low, and transfusion already ordered. Patient seen/examined, resting in bed, transfered back to the unit, due to resp failure. She is now on venting mask. had blood replacement done. Objective - Constitutional Vitals: Vital Signs - 12hr 08/29/17 08/29/17 08/29/17 10:15 10:31 10:45 Temperature Pulse Rate 107 H 106 H 105 H Pulse Rate [ Bilateral Throughout] Respiratory 21 20 21 Rate Respiratory Rate [Bilateral Throughout] Blood Pressure 135/50 135/60 135/60 O2 Sat by Pulse 100 100 100 Oximetry O2 Sat by Pulse Oximetry [ Bilateral Throughout] 08/29/17 08/29/17 08/29/17 11:01 11:15 11:30 Temperature Pulse Rate 106 H 103 H 100 H Pulse Rate [ Bilateral Throughout] Respiratory 25 H 18 20 Rate Respiratory Rate [Bilateral Throughout] Blood Pressure 102/49 97/53 90/53 O2 Sat by Pulse 100 100 100 Oximetry O2 Sat by Pulse Oximetry [ Bilateral Throughout] 08/29/17 08/29/17 08/29/17 11:45 12:00 12:15 Temperature 98.9 F Pulse Rate 103 H 102 H 102 H Pulse Rate [ Bilateral Throughout] Respiratory 21 22 19 Rate Respiratory Rate [Bilateral Throughout] Blood Pressure 98/60 108/68 96/66 O2 Sat by Pulse 100 100 100 Oximetry O2 Sat by Pulse 97 Oximetry [ Bilateral Throughout] 08/29/17 08/29/17 08/29/17 12:30 12:45 13:00 Temperature 98.9 F Pulse Rate 102 H 101 H 104 H Pulse Rate [ Bilateral Throughout] Respiratory 17 21 Rate Respiratory Rate [Bilateral Throughout] Blood Pressure 93/33 93/33 88/54 O2 Sat by Pulse 80 L 98 Oximetry O2 Sat by Pulse Oximetry [ Bilateral Throughout] 08/29/17 08/29/17 08/29/17 13:01 13:15 13:31 Temperature Pulse Rate 106 H 106 H 108 H Pulse Rate [ Bilateral Throughout] Respiratory 21 22 22 Rate Respiratory Rate [Bilateral Throughout] Blood Pressure 93/55 95/59 104/64 O2 Sat by Pulse 82 L 83 L 86 Oximetry O2 Sat by Pulse Oximetry [ Bilateral Throughout] 08/29/17 08/29/17 08/29/17 13:34 13:45 13:48 Temperature Pulse Rate 108 H 109 H 107 H Pulse Rate [ Bilateral Throughout] Respiratory 21 Rate Respiratory Rate [Bilateral Throughout] Blood Pressure 104/64 93/51 93/51 O2 Sat by Pulse 100 Oximetry O2 Sat by Pulse Oximetry [ Bilateral Throughout] 08/29/17 08/29/17 08/29/17 14:00 14:01 14:15 Temperature Pulse Rate 110 H 110 H 110 H Pulse Rate [ Bilateral Throughout] Respiratory 22 22 Rate Respiratory Rate [Bilateral Throughout] Blood Pressure 83/66 93/51 93/51 O2 Sat by Pulse 98 100 Oximetry O2 Sat by Pulse Oximetry [ Bilateral Throughout] 08/29/17 08/29/17 08/29/17 14:16 14:30 14:45 Temperature Pulse Rate 109 H 109 H 112 H Pulse Rate [ Bilateral Throughout] Respiratory 26 H 25 H Rate Respiratory Rate [Bilateral Throughout] Blood Pressure 88/70 200/140 123/102 O2 Sat by Pulse 88 54 L Oximetry O2 Sat by Pulse Oximetry [ Bilateral Throughout] 08/29/17 08/29/17 08/29/17 14:56 14:57 14:59 Temperature Pulse Rate 109 H Pulse Rate [ 108 H 110 H Bilateral Throughout] Respiratory Rate Respiratory 22 21 Rate [Bilateral Throughout] Blood Pressure 117/89 O2 Sat by Pulse Oximetry O2 Sat by Pulse Oximetry [ Bilateral Throughout] 08/29/17 08/29/17 08/29/17 15:01 15:15 15:27 Temperature 98.6 F Pulse Rate 108 H 106 H 108 H Pulse Rate [ Bilateral Throughout] Respiratory 21 23 20 Rate Respiratory Rate [Bilateral Throughout] Blood Pressure 125/28 158/124 105/77 O2 Sat by Pulse 95 Oximetry O2 Sat by Pulse 95 Oximetry [ Bilateral Throughout] 08/29/17 08/29/17 08/29/17 15:31 15:45 16:00 Temperature 98.1 F Pulse Rate 107 H 106 H Pulse Rate [ Bilateral Throughout] Respiratory 22 24 Rate Respiratory Rate [Bilateral Throughout] Blood Pressure 110/62 105/77 O2 Sat by Pulse 63 L 86 Oximetry O2 Sat by Pulse Oximetry [ Bilateral Throughout] 08/29/17 08/29/17 08/29/17 16:01 16:15 16:31 Temperature Pulse Rate 108 H 105 H 105 H Pulse Rate [ Bilateral Throughout] Respiratory 24 21 20 Rate Respiratory Rate [Bilateral Throughout] Blood Pressure 82/23 101/44 101/44 O2 Sat by Pulse 93 83 L 80 L Oximetry O2 Sat by Pulse Oximetry [ Bilateral Throughout] 08/29/17 08/29/17 08/29/17 16:45 17:01 17:15 Temperature Pulse Rate 106 H 106 H 106 H Pulse Rate [ Bilateral Throughout] Respiratory 20 20 19 Rate Respiratory Rate [Bilateral Throughout] Blood Pressure 92/44 145/94 145/94 O2 Sat by Pulse 78 L 79 L 77 L Oximetry O2 Sat by Pulse Oximetry [ Bilateral Throughout] 08/29/17 08/29/17 08/29/17 17:31 17:45 18:01 Temperature Pulse Rate 107 H 107 H 104 H Pulse Rate [ Bilateral Throughout] Respiratory 24 21 17 Rate Respiratory Rate [Bilateral Throughout] Blood Pressure 156/33 156/33 134/87 O2 Sat by Pulse 99 93 91 Oximetry O2 Sat by Pulse Oximetry [ Bilateral Throughout] 08/29/17 08/29/17 08/29/17 18:15 18:31 18:45 Temperature Pulse Rate 105 H 107 H 105 H Pulse Rate [ Bilateral Throughout] Respiratory 16 20 21 Rate Respiratory Rate [Bilateral Throughout] Blood Pressure 119/90 118/91 129/81 O2 Sat by Pulse 93 90 99 Oximetry O2 Sat by Pulse Oximetry [ Bilateral Throughout] 08/29/17 08/29/17 08/29/17 19:00 19:48 19:49 Temperature Pulse Rate 104 H 104 H Pulse Rate [ Bilateral Throughout] Respiratory 18 27 H Rate Respiratory Rate [Bilateral Throughout] Blood Pressure 129/82 113/79 O2 Sat by Pulse 94 100 100 Oximetry O2 Sat by Pulse Oximetry [ Bilateral Throughout] 08/29/17 08/29/17 08/29/17 19:53 20:00 20:03 Temperature 98.8 F Pulse Rate Pulse Rate [ 104 H 102 H Bilateral Throughout] Respiratory Rate Respiratory 26 H 25 H Rate [Bilateral Throughout] Blood Pressure O2 Sat by Pulse Oximetry O2 Sat by Pulse Oximetry [ Bilateral Throughout] General appearance: Present: mild distress, well-nourished - EENT Eyes: PERRL, EOM intact ENT: hearing intact, clear oral mucosa Ears: bilateral: normal - Neck Neck: supple, normal ROM - Respiratory Respiratory: bilateral: diminished - Breasts Breasts: deferred - Cardiovascular Rhythm: regular Heart Sounds: Present: S1 & S2. Absent: gallop, rub Extremities: pulses intact, No edema, normal color, Full ROM - Gastrointestinal General gastrointestinal: Present: soft, non-tender, non-distended, normal bowel sounds Rectal Exam: deferred - Genitourinary Female genitourinary: deferred - Integumentary Integumentary: clear, warm, dry - Musculoskeletal Musculoskeletal: 1, strength equal bilaterally - Neurologic Neurologic: moves all extremities - Psychiatric Psychiatric: appropriate mood/affect, memory intact - Labs CBC & Chem 7: 08/29/17 15:32 08/29/17 04:30 Labs: Abnormal lab results 08/28/17 08/29/17 08/29/17 Range/Units 16:22 04:24 04:30 WBC 44.9 H* (4.5-11.0) K/mm3 RDW 23.1 H (13.2-15.2) % Seg Neuts % (Manual) 38.0 L (40.0-70.0) % Lymphocytes % (Manual) 10.0 L (13.4-35.0) % Monocytes % (Manual) 10.0 H (0.0-7.3) % Nucleated RBC % 6.0 H (0.0-0.9) % Seg Neutrophils # Man 17.1 H (1.8-7.7) K/mm3 Monocytes # (Manual) 4.5 H (0.0-0.8) K/mm3 BUN (7-17) mg/dL Creatinine (0.7-1.2) mg/dL Glucose (65-100) mg/dL POC Glucose 209 H 195 H (70-105) C-Reactive Protein (0.00-1.30) mg/dL 08/29/17 08/29/17 08/29/17 Range/Units 04:30 12:30 17:23 WBC (4.5-11.0) K/mm3 RDW (13.2-15.2) % Seg Neuts % (Manual) (40.0-70.0) % Lymphocytes % (Manual) (13.4-35.0) % Monocytes % (Manual) (0.0-7.3) % Nucleated RBC % (0.0-0.9) % Seg Neutrophils # Man (1.8-7.7) K/mm3 Monocytes # (Manual) (0.0-0.8) K/mm3 BUN 61 H (7-17) mg/dL Creatinine 2.4 H (0.7-1.2) mg/dL Glucose 226 H (65-100) mg/dL POC Glucose 270 H (70-105) C-Reactive Protein 19.10 H (0.00-1.30) mg/dL
[2017-08-29 22:12] LABS: Hematocrit 34.1 % (30.3-42.9); Hemoglobin 10.9 gm/dl (10.1-14.3)
[2017-08-29] MEDS: LEVOPHED 8 MG in NACL 0.9% 250ML 242 ML IV SCH (23:18)
[2017-08-30] MEDS ORDERED: QUELICIN ONE ×2 (02:00→10:55)
[2017-08-30] MEDS: DUONEB *Not for PRN Use IH SCH ×4 (02:46→20:22)
[2017-08-30] MEDS: LEVOPHED 8 MG in NACL 0.9% 250ML 242 ML IV SCH ×4 (05:12→21:56)
[2017-08-30 05:18] LABS: ISTAT Base Excess -2; ISTAT HCO3 26.4; ISTAT PCO2 72.8 (35-45); ISTAT PH 7.168 (7.35-7.45); ISTAT PO2 257 (80-105); ISTAT SO2 100; ISTAT TCO2 29
[2017-08-30 05:18] LABS: ISTAT Base Excess -2; ISTAT HCO3 23.5; ISTAT PCO2 44.1 (35-45); ISTAT PH 7.335 (7.35-7.45); ISTAT PO2 117 (80-105); ISTAT SO2 98; ISTAT TCO2 25
[2017-08-30 06:02] LABS: Hematocrit 31.7 % (30.3-42.9); Hemoglobin 10.3 gm/dl (10.1-14.3); Mean Corpuscular HGB Conc 32 % (30-34); Mean Corpuscular Hemoglobin 28 pg (28-32); Mean Corpuscular Volume 87 fl (79-97); Platelet Count 352 K/mm3 (140-440); Red Blood Count 3.64 M/mm3 (3.65-5.03)
[2017-08-30 06:04] LABS: Red Cell Distribution Width 24.3 % (13.2-15.2)
[2017-08-30 06:05] LABS: White Blood Count 40.9 K/mm3 (4.5-11.0)
[2017-08-30 06:21] LABS: Chloride 101.5 mmol/L (98-107); Magnesium 1.7 mg/dL (1.7-2.3); Phosphorous 3.2 mg/dL (2.5-4.5); Potassium 4.5 mmol/L (3.6-5.0)
[2017-08-30 08:07] LABS: Blastocytes % (Manual) 0 %
[2017-08-30 08:08] LABS: Burr Cells Few; Hypochromasia 1+; Polychromasia 1+
[2017-08-30 08:09] LABS: Anisocytosis 2+; Macrocytosis Few; Poikilocytosis 1+; Target Cells Rare
[2017-08-30 08:10] LABS: Diff Status Complete; Giant Platelets Few; Platelet Clumps Few; Platelet Estimate Consistent w Auto
[2017-08-30] MEDS: fentaNYL DRIP Premix 2,000 MCG/100 ML BAG IV SCH ×4 (08:26→20:24)
--- NOTE | 2017-08-30 08:35 | Progress Note ---
Assessment and Plan 62 y.o. F s/p ex-lap, lysis of adhesions, G tube placement, MERVIN drain placement: POD 12 S/p transfer to the ICU: GI bleed: one small epidsode of rectal bleeding overnight. Presser requirements increasing. s/p intubation overnight. Source: unlikely upper GI since G tube is draining bilious fluid. CT abd pelvis angio: no blush of contrast. gastric perforation: poor overall nutritional status making the defect difficult to re-seal despite intra-luminal decompression and external drainage. Mervin now brown/serous. Record MERVIN output and G tube output in order to assess if she is adequately being decompressed. . Monitor output and color. Nursing to strip MERVIN during shift. Likely prolonged healing time of small gastric perforation. Keep NPO. No manipulation of NG or G or MERVIN. Keep NG to low intermit. wall sunction. No manipulation. No flushes. No medications Prolonged healing anticipated due to poor nutrition and steroids. Will not start vit A supplementation due to possible vit A toxicity from supplementation due to renal failure. -continue PPI ID: Covering Gut grace 2/ perforation:f/u cultures from abd wound - - Follow up cultures from abdominal wound. Leukocytosis worsening. Rec. change fem line when stable. if temp rec lr culture rec dc of ivan TPN for nutrition Resp: intubated overnight. f/u abg renal failure: HD per renal. will defer to renal for dialysis and fluid/ electrolyte management. Sacral wound and RLE wound: wound care following. GI proph: PPI DVT proph: rec hold hep subq. SCDS - Patient Problems (1) Peritonitis (acute) generalized Current Visit: Yes Status: Acute Subjective Narrative: Pt intubated overnight due to resp distress. Levo increased to 18. 1 small melena overnight/am per nurse. NG 50cc bilious MERVIN 90cc serosang/drk blood in MERVIN g tube 25cc bilious afebrile Objective Vital Signs - 12hr 08/29/17 08/29/17 08/29/17 20:45 21:01 21:15 Temperature Pulse Rate 101 H 106 H 101 H Pulse Rate [ Bilateral Throughout] Pulse Rate [ From Monitor] Respiratory 16 21 19 Rate Respiratory Rate [Bilateral Throughout] Blood Pressure 116/45 93/10 93/10 O2 Sat by Pulse 100 100 100 Oximetry 08/29/17 08/29/17 08/29/17 21:31 21:45 22:00 Temperature Pulse Rate 98 H 97 H 96 H Pulse Rate [ Bilateral Throughout] Pulse Rate [ 100 H From Monitor] Respiratory 17 18 20 Rate Respiratory Rate [Bilateral Throughout] Blood Pressure 100/29 116/48 116/48 O2 Sat by Pulse 100 100 100 Oximetry 08/29/17 08/29/17 08/29/17 22:12 22:15 22:19 Temperature Pulse Rate 103 H 99 H 96 H Pulse Rate [ Bilateral Throughout] Pulse Rate [ From Monitor] Respiratory 20 16 15 Rate Respiratory Rate [Bilateral Throughout] Blood Pressure 111/10 118/28 118/28 O2 Sat by Pulse 100 95 100 Oximetry 08/29/17 08/29/17 08/29/17 22:31 22:39 22:40 Temperature Pulse Rate 97 H 103 H 100 H Pulse Rate [ Bilateral Throughout] Pulse Rate [ From Monitor] Respiratory 20 13 Rate Respiratory Rate [Bilateral Throughout] Blood Pressure 93/65 93/65 O2 Sat by Pulse 98 100 Oximetry 08/29/17 08/29/17 08/29/17 22:45 23:01 23:15 Temperature Pulse Rate 101 H 99 H 104 H Pulse Rate [ Bilateral Throughout] Pulse Rate [ From Monitor] Respiratory 19 16 20 Rate Respiratory Rate [Bilateral Throughout] Blood Pressure 127/79 132/69 141/60 O2 Sat by Pulse 97 96 96 Oximetry 08/29/17 08/29/17 08/29/17 23:27 23:31 23:45 Temperature 99.2 F Pulse Rate 100 H 99 H Pulse Rate [ Bilateral Throughout] Pulse Rate [ From Monitor] Respiratory 17 17 Rate Respiratory Rate [Bilateral Throughout] Blood Pressure 151/53 151/53 O2 Sat by Pulse 98 96 Oximetry 08/30/17 08/30/17 08/30/17 00:00 00:15 00:30 Temperature Pulse Rate 101 H 104 H 103 H Pulse Rate [ Bilateral Throughout] Pulse Rate [ From Monitor] Respiratory 15 17 27 H Rate Respiratory Rate [Bilateral Throughout] Blood Pressure 114/65 114/65 127/73 O2 Sat by Pulse 100 100 100 Oximetry 08/30/17 08/30/17 08/30/17 00:31 00:45 01:01 Temperature Pulse Rate 103 H 104 H 101 H Pulse Rate [ Bilateral Throughout] Pulse Rate [ From Monitor] Respiratory 17 15 17 Rate Respiratory Rate [Bilateral Throughout] Blood Pressure 125/87 125/87 143/77 O2 Sat by Pulse 91 100 99 Oximetry 08/30/17 08/30/17 08/30/17 01:15 01:31 01:45 Temperature Pulse Rate 103 H 97 H 102 H Pulse Rate [ Bilateral Throughout] Pulse Rate [ From Monitor] Respiratory 17 18 19 Rate Respiratory Rate [Bilateral Throughout] Blood Pressure 143/77 104/41 135/47 O2 Sat by Pulse 88 100 95 Oximetry 08/30/17 08/30/17 08/30/17 02:01 02:10 02:15 Temperature Pulse Rate 94 H 100 H 96 H Pulse Rate [ Bilateral Throughout] Pulse Rate [ From Monitor] Respiratory 12 21 Rate Respiratory Rate [Bilateral Throughout] Blood Pressure 135/47 138/114 158/53 O2 Sat by Pulse 97 100 100 Oximetry 08/30/17 08/30/17 08/30/17 02:31 02:46 02:58 Temperature Pulse Rate 104 H Pulse Rate [ 101 H 103 H Bilateral Throughout] Pulse Rate [ From Monitor] Respiratory 20 Rate Respiratory 24 23 Rate [Bilateral Throughout] Blood Pressure 161/49 O2 Sat by Pulse 100 Oximetry 08/30/17 08/30/17 03:31 03:54 Temperature 98.6 F Pulse Rate 100 H Pulse Rate [ Bilateral Throughout] Pulse Rate [ From Monitor] Respiratory Rate Respiratory Rate [Bilateral Throughout] Blood Pressure 121/73 O2 Sat by Pulse 100 Oximetry - General physical appearance well developed, moderate distress, chronically ill, obese - Neck no masses - Respiratory normal expansion, other (increased resp effort ) - Abdomen soft, bowel sounds normal, other (obese, soft, midline packing removed - kerlex soaked with serous/sangous mixd with blood clot. irrigated with saline and repacked with kerlex. prev PD cath site: dressing removed and repacked. clean. 3cm x 4cm deep. no drainage. grimace with palp to abd upper) - Genitourinary other (ivan ) - Integumentary other (skin tears bl flanks ) - Labs 08/30/17 05:20 08/30/17 05:20 Diabetes panel 08/30/17 Range/Units 05:20 Sodium 142 (137-145) mmol/L Potassium 4.5 (3.6-5.0) mmol/L Chloride 101.5 (98-107) mmol/L Carbon Dioxide 22 (22-30) mmol/L BUN 83 H (7-17) mg/dL Creatinine 2.9 H (0.7-1.2) mg/dL Glucose 334 H (65-100) mg/dL Calcium 9.0 (8.4-10.2) mg/dL Calcium panel 08/30/17 Range/Units 05:20 Calcium 9.0 (8.4-10.2) mg/dL Phosphorus 3.20 (2.5-4.5) mg/dL Pituitary panel 08/30/17 Range/Units 05:20 Sodium 142 (137-145) mmol/L Potassium 4.5 (3.6-5.0) mmol/L Chloride 101.5 (98-107) mmol/L Carbon Dioxide 22 (22-30) mmol/L BUN 83 H (7-17) mg/dL Creatinine 2.9 H (0.7-1.2) mg/dL Glucose 334 H (65-100) mg/dL Calcium 9.0 (8.4-10.2) mg/dL Adrenal panel 08/30/17 Range/Units 05:20 Sodium 142 (137-145) mmol/L Potassium 4.5 (3.6-5.0) mmol/L Chloride 101.5 (98-107) mmol/L Carbon Dioxide 22 (22-30) mmol/L BUN 83 H (7-17) mg/dL Creatinine 2.9 H (0.7-1.2) mg/dL Glucose 334 H (65-100) mg/dL Calcium 9.0 (8.4-10.2) mg/dL
[2017-08-30] MEDS ORDERED: NACL 0.9% 100 ML IV PRN ×2 (09:02→10:05)
--- NOTE | 2017-08-30 09:08 | XRay Report ---
Single view chest: Compared to 08/27/17. History: Oral intubation. Findings: Cardiomegaly. Trachea is midline. Stable support system. Emphysema. No consolidation or pleural effusion. Impression: No acute cardiopulmonary findings the
[2017-08-30] MEDS: PROTONIX IV SCH ×3 (09:09→21:51)
[2017-08-30] MEDS: ATIVAN IV PRN (09:09)
--- NOTE | 2017-08-30 09:50 | Progress Note ---
Assessment and Plan - Patient Problems (1) ESRD (end stage renal disease) on dialysis Current Visit: Yes Status: Acute Plan to address problem: Continue HD, MWF schedule. Isolated UF as needed for volume overload. Patient is on TPN. (2) Hyperkalemia Current Visit: Yes Status: Acute Plan to address problem: K level is better. (3) Anemia Current Visit: No Status: Chronic Qualifiers: Anemia type: due to chronic kidney disease Iron deficiency anemia type: I Vitamin B12 deficiency anemia type: V Folate deficiency anemia type: F Bone marrow failure anemia type: B Hemolytic anemia type: H Other causes of anemia: O Chronic kidney disease stage: on chronic dialysis Qualified Code(s ): N18.6 - End stage renal disease; D63.1 - Anemia in chronic kidney disease; Z99.2 - Dependence on renal dialysis Plan to address problem: Epogen. S/p PRBC. (4) Hypotension Current Visit: Yes Status: Chronic Qualifiers: Hypotension type: H Trimester: T Plan to address problem: On Levophed. (5) Leukocytosis Current Visit: Yes Status: Acute Qualifiers: Leukocytosis type: unspecified Qualified Code(s): D72.829 - Elevated white blood cell count, unspecified Plan to address problem: Followed by ID and Heme-Onc. (6) Acute respiratory failure with hypoxemia Current Visit: Yes Status: Acute Plan to address problem: On the vent. (7) Sepsis Current Visit: Yes Status: Acute Qualifiers: Sepsis type: S Subjective Date of service: 08/30/17 Principal diagnosis: /anemia, poor oral intake. Interval history: Patient was seen and examined at the bedside. Patient is intubated. Objective - Vital Signs Vital signs: Vital Signs - 12hr 08/29/17 08/29/17 08/29/17 22:00 22:12 22:15 Temperature Pulse Rate 96 H 103 H 99 H Pulse Rate [ Anterior Bilateral Throughout] Pulse Rate [ Apical] Pulse Rate [ Bilateral Throughout] Pulse Rate [ 100 H From Monitor] Respiratory 20 20 16 Rate Respiratory Rate [Anterior Bilateral Throughout] Respiratory Rate [Bilateral Throughout] Blood Pressure 116/48 111/10 118/28 O2 Sat by Pulse 100 100 95 Oximetry 08/29/17 08/29/17 08/29/17 22:19 22:31 22:39 Temperature Pulse Rate 96 H 97 H 103 H Pulse Rate [ Anterior Bilateral Throughout] Pulse Rate [ Apical] Pulse Rate [ Bilateral Throughout] Pulse Rate [ From Monitor] Respiratory 15 20 13 Rate Respiratory Rate [Anterior Bilateral Throughout] Respiratory Rate [Bilateral Throughout] Blood Pressure 118/28 93/65 93/65 O2 Sat by Pulse 100 98 100 Oximetry 08/29/17 08/29/17 08/29/17 22:40 22:45 23:01 Temperature Pulse Rate 100 H 101 H 99 H Pulse Rate [ Anterior Bilateral Throughout] Pulse Rate [ Apical] Pulse Rate [ Bilateral Throughout] Pulse Rate [ From Monitor] Respiratory 19 16 Rate Respiratory Rate [Anterior Bilateral Throughout] Respiratory Rate [Bilateral Throughout] Blood Pressure 127/79 132/69 O2 Sat by Pulse 97 96 Oximetry 08/29/17 08/29/17 08/29/17 23:15 23:27 23:31 Temperature 99.2 F Pulse Rate 104 H 100 H Pulse Rate [ Anterior Bilateral Throughout] Pulse Rate [ Apical] Pulse Rate [ Bilateral Throughout] Pulse Rate [ From Monitor] Respiratory 20 17 Rate Respiratory Rate [Anterior Bilateral Throughout] Respiratory Rate [Bilateral Throughout] Blood Pressure 141/60 151/53 O2 Sat by Pulse 96 98 Oximetry 08/29/17 08/30/17 08/30/17 23:45 00:00 00:15 Temperature Pulse Rate 99 H 101 H 104 H Pulse Rate [ Anterior Bilateral Throughout] Pulse Rate [ 107 H Apical] Pulse Rate [ Bilateral Throughout] Pulse Rate [ From Monitor] Respiratory 17 15 22 Rate Respiratory Rate [Anterior Bilateral Throughout] Respiratory Rate [Bilateral Throughout] Blood Pressure 151/53 114/65 114/65 O2 Sat by Pulse 96 100 98 Oximetry 08/30/17 08/30/17 08/30/17 00:30 00:31 00:45 Temperature Pulse Rate 103 H 103 H 104 H Pulse Rate [ Anterior Bilateral Throughout] Pulse Rate [ Apical] Pulse Rate [ Bilateral Throughout] Pulse Rate [ From Monitor] Respiratory 27 H 17 15 Rate Respiratory Rate [Anterior Bilateral Throughout] Respiratory Rate [Bilateral Throughout] Blood Pressure 127/73 125/87 125/87 O2 Sat by Pulse 100 91 100 Oximetry 08/30/17 08/30/17 08/30/17 01:01 01:15 01:31 Temperature Pulse Rate 101 H 103 H 97 H Pulse Rate [ Anterior Bilateral Throughout] Pulse Rate [ Apical] Pulse Rate [ Bilateral Throughout] Pulse Rate [ From Monitor] Respiratory 17 17 18 Rate Respiratory Rate [Anterior Bilateral Throughout] Respiratory Rate [Bilateral Throughout] Blood Pressure 143/77 143/77 104/41 O2 Sat by Pulse 99 88 100 Oximetry 08/30/17 08/30/17 08/30/17 01:45 02:01 02:10 Temperature Pulse Rate 102 H 94 H 100 H Pulse Rate [ Anterior Bilateral Throughout] Pulse Rate [ Apical] Pulse Rate [ Bilateral Throughout] Pulse Rate [ From Monitor] Respiratory 19 12 Rate Respiratory Rate [Anterior Bilateral Throughout] Respiratory Rate [Bilateral Throughout] Blood Pressure 135/47 135/47 138/114 O2 Sat by Pulse 95 97 100 Oximetry 08/30/17 08/30/17 08/30/17 02:15 02:31 02:45 Temperature Pulse Rate 96 H 104 H 101 H Pulse Rate [ Anterior Bilateral Throughout] Pulse Rate [ Apical] Pulse Rate [ Bilateral Throughout] Pulse Rate [ From Monitor] Respiratory 21 20 24 Rate Respiratory Rate [Anterior Bilateral Throughout] Respiratory Rate [Bilateral Throughout] Blood Pressure 158/53 161/49 147/114 O2 Sat by Pulse 100 100 94 Oximetry 08/30/17 08/30/17 08/30/17 02:46 02:58 03:01 Temperature Pulse Rate 96 H Pulse Rate [ Anterior Bilateral Throughout] Pulse Rate [ Apical] Pulse Rate [ 101 H 103 H Bilateral Throughout] Pulse Rate [ From Monitor] Respiratory 22 Rate Respiratory Rate [Anterior Bilateral Throughout] Respiratory 24 23 Rate [Bilateral Throughout] Blood Pressure 138/114 O2 Sat by Pulse Oximetry 08/30/17 08/30/17 08/30/17 03:15 03:31 03:45 Temperature Pulse Rate 104 H 97 H 100 H Pulse Rate [ Anterior Bilateral Throughout] Pulse Rate [ Apical] Pulse Rate [ Bilateral Throughout] Pulse Rate [ From Monitor] Respiratory 25 H 23 25 H Rate Respiratory Rate [Anterior Bilateral Throughout] Respiratory Rate [Bilateral Throughout] Blood Pressure 138/114 121/73 121/73 O2 Sat by Pulse 100 100 95 Oximetry 08/30/17 08/30/17 08/30/17 03:54 04:00 04:15 Temperature 98.6 F Pulse Rate 97 H 106 H Pulse Rate [ Anterior Bilateral Throughout] Pulse Rate [ Apical] Pulse Rate [ Bilateral Throughout] Pulse Rate [ From Monitor] Respiratory 20 22 Rate Respiratory Rate [Anterior Bilateral Throughout] Respiratory Rate [Bilateral Throughout] Blood Pressure 97/76 89/68 O2 Sat by Pulse 79 L 100 Oximetry 08/30/17 08/30/1717 04:31 04:45 05:01 Temperature Pulse Rate 104 H 103 H 99 H Pulse Rate [ Anterior Bilateral Throughout] Pulse Rate [ Apical] Pulse Rate [ Bilateral Throughout] Pulse Rate [ From Monitor] Respiratory 23 24 24 Rate Respiratory Rate [Anterior Bilateral Throughout] Respiratory Rate [Bilateral Throughout] Blood Pressure 126/63 145/114 125/80 O2 Sat by Pulse 100 100 Oximetry 08/30/17 08/30/17 08/30/17 05:15 05:31 05:45 Temperature Pulse Rate 108 H 108 H 98 H Pulse Rate [ Anterior Bilateral Throughout] Pulse Rate [ Apical] Pulse Rate [ Bilateral Throughout] Pulse Rate [ From Monitor] Respiratory 23 21 21 Rate Respiratory Rate [Anterior Bilateral Throughout] Respiratory Rate [Bilateral Throughout] Blood Pressure 125/80 142/77 142/77 O2 Sat by Pulse 99 97 Oximetry 08/30/17 08/30/17 08/30/17 06:01 06:15 06:31 Temperature Pulse Rate 106 H 91 H 104 H Pulse Rate [ Anterior Bilateral Throughout] Pulse Rate [ Apical] Pulse Rate [ Bilateral Throughout] Pulse Rate [ From Monitor] Respiratory 26 H 22 26 H Rate Respiratory Rate [Anterior Bilateral Throughout] Respiratory Rate [Bilateral Throughout] Blood Pressure 83/50 100/50 57/36 O2 Sat by Pulse 99 93 90 Oximetry 08/30/17 08/30/17 08/30/17 06:45 07:01 07:15 Temperature Pulse Rate 103 H 116 H 105 H Pulse Rate [ Anterior Bilateral Throughout] Pulse Rate [ Apical] Pulse Rate [ Bilateral Throughout] Pulse Rate [ From Monitor] Respiratory 17 23 26 H Rate Respiratory Rate [Anterior Bilateral Throughout] Respiratory Rate [Bilateral Throughout] Blood Pressure 138/108 138/108 138/108 O2 Sat by Pulse 87 90 94 Oximetry 08/30/17 08/30/17 08/30/17 07:31 07:45 08:00 Temperature 98.2 F Pulse Rate 105 H 107 H Pulse Rate [ Anterior Bilateral Throughout] Pulse Rate [ Apical] Pulse Rate [ Bilateral Throughout] Pulse Rate [ From Monitor] Respiratory 25 H 26 H Rate Respiratory Rate [Anterior Bilateral Throughout] Respiratory Rate [Bilateral Throughout] Blood Pressure 138/108 138/108 O2 Sat by Pulse 99 91 Oximetry 08/30/17 08/30/17 08/30/17 08:01 08:15 08:30 Temperature Pulse Rate 110 H 85 107 H Pulse Rate [ Anterior Bilateral Throughout] Pulse Rate [ Apical] Pulse Rate [ Bilateral Throughout] Pulse Rate [ From Monitor] Respiratory 24 28 H 22 Rate Respiratory Rate [Anterior Bilateral Throughout] Respiratory Rate [Bilateral Throughout] Blood Pressure 91/71 91/71 130/103 O2 Sat by Pulse 100 93 98 Oximetry 08/30/17 08/30/17 08/30/17 08:45 09:01 09:32 Temperature Pulse Rate 102 H 96 H 92 H Pulse Rate [ 92 H Anterior Bilateral Throughout] Pulse Rate [ Apical] Pulse Rate [ Bilateral Throughout] Pulse Rate [ From Monitor] Respiratory 20 22 Rate Respiratory 26 H Rate [Anterior Bilateral Throughout] Respiratory Rate [Bilateral Throughout] Blood Pressure 117/45 162/86 105/56 O2 Sat by Pulse 100 100 93 Oximetry - General Appearance General appearance: well-developed, appears stated age, obese, intubated, other (right groin hemodialysis catheter) EENT: ATNC, PERRL Neck: supple Respiratory: Present: Clear to Ascultation Cardiology: regular, S1S2, no murmurs Gastrointestinal: normoactive bowel sounds, no tenderness, obese, other (PEG tube noted) Integumentary: no rash Neurologic: other (stuporous) Musculoskeletal: other (2+ edema of both LEs noted) - Lab 08/30/17 05:20 08/30/17 05:20 Most recent lab results Calcium 9.0 mg/dL (8.4-10.2) 08/30/17 05:20 Phosphorus 3.20 mg/dL (2.5-4.5) 08/30/17 05:20 Magnesium 1.70 mg/dL (1.7-2.3) 08/30/17 05:20
[2017-08-30] MEDS: MYCAMINE 100 MG in NACL 0.9% 100 ML IV SCH ×2 (10:09→10:10)
[2017-08-30] MEDS: MERREM 1,000 MG in NACL 0.9% 100 ML IV SCH ×3 (10:09→10:13)
[2017-08-30] MEDS ORDERED: AMIDATE IV ONE (10:55)
--- NOTE | 2017-08-30 11:15 | Progress Note ---
Assessment and Plan Assessment and plan: 62 YO Female with MO, ESRD-PD (with PD cath in place )(Daily), HTN, OA, Ischemic Cardiomyopathy currently on Milrinone, Chronic Pain who came to ED with lightheaded and syncope, she c/o abdomnal pain x 2 days, was found to have hypotension, septic shock and intra-abdominal abscess. Acute hypoxic respiratory failure on MV < 96 hours continue ventilator Activity rectal bleeding with severe acute blood loss anemia -EGD showed small gastric ulcer -sp multiple transfusions -- GI consult appreciated - Patient had CTA of abdomen and pelvis no active bleeding - transfuse to keep Hg above 8 given septic shock ESRD -continue HD per renal per femoral HD cath -needs perm cath when improved Septic shock. - continue IV pressors Sepsis secondary to peritonitis, Intra abdominal abscess and Bowel obstruction - Patient had completed 14 days of meropenem and diflucan - Patient restarted with IV vancomycin, meropenem and micafungin, ID input appreciated - she has had the following procedures 08/31: Ex lap with abdominal wash out and closure 08/17: Ex lap with G tube placement, EGD, abdominal wash out and removal of PD Cath Ulcerative esophagitis/small gastric ulcer on EGD - IV pantoprazole Severe Protein calorie malnutrition - Continue with TPN Sacral and lower extremity wound, POA - continue wound care --DVT prophylaxis; SCDs - D/C Heparin because of GI bleed Plan of care discussed with the patient's family at bedside Disposition - continue ICU care Prognosis: guarded The high probability of a clinically significant, sudden or life threatening deterioration of the [cv, pulmonary and GI] system(s) required my full and direct attention, intervention and personal management. The aggregate critical care time was [33] minutes. This time is in addition to time spent performing reported procedures but includes the following: [] Data Review and interpretation [] Patient assessment and monitoring of vital signs [] Documentation [] Medication orders and management History Interval history: continues to be intubated, sedated, pressor dependent Hospitalist Physical - Physical exam Narrative exam: General.: Obese HEENT: Moist mucous membranes, extraocular muscles intact, no lymphadenopathy Neck: supple Cardiac: S1-S2 heard Lungs: clear to auscultation bilaterally Abdomen: soft, bowel sounds normal, other (obese, soft, with midline packing, dressing not removed) Extremities: no edema clubbing or cyanosis Skin: no rash or lesions Neurologic: Intubated, obeys commands, arousable - Constitutional Vitals: Temp Pulse Resp BP Pulse Ox 98.2 F 114 H 26 H 105/56 93 08/30/17 08:00 08/30/17 09:54 08/30/17 09:32 08/30/17 09:32 08/30/17 09:32 General appearance: Present: mild distress, well-nourished Results - Labs CBC & Chem 7: 09/01/17 05:00 09/02/17 06:10 Labs: Laboratory Last Values WBC 40.9 K/mm3 (4.5-11.0) H* 08/30/17 05:20 RBC 3.64 M/mm3 (3.65-5.03) L 08/30/17 05:20 Hgb 10.3 gm/dl (10.1-14.3) 08/30/17 05:20 Hct 31.7 % (30.3-42.9) 08/30/17 05:20 MCV 87 fl (79-97) 08/30/17 05:20 MCH 28 pg (28-32) 08/30/17 05:20 MCHC 32 % (30-34) 08/30/17 05:20 RDW 24.3 % (13.2-15.2) H 08/30/17 05:20 Plt Count 352 K/mm3 (140-440) 08/30/17 05:20 Lymph % (Auto) Nuclear Plant Instrument Technician 08/19/17 07:37 [place] % (Auto) Nuclear Plant Instrument Technician 08/19/17 07:37 Eos % (Auto) Nuclear Plant Instrument Technician 08/19/17 07:37 Baso % (Auto) Nuclear Plant Instrument Technician 08/19/17 07:37 Lymph # Nuclear Plant Instrument Technician 08/19/17 07:37 [place] # Nuclear Plant Instrument Technician 08/19/17 07:37 Eos # Nuclear Plant Instrument Technician 08/19/17 07:37 Baso # Nuclear Plant Instrument Technician 08/19/17 07:37 Add Manual Diff Complete 08/30/17 05:20 Total Counted 200 08/30/17 05:20 Seg Neutrophils % Nuclear Plant Instrument Technician 08/30/17 05:20 Seg Neuts % (Manual) 80.0 % (40.0-70.0) H 08/30/17 05:20 Band Neutrophils % 12.0 % 08/30/17 05:20 Lymphocytes % (Manual) 3.0 % (13.4-35.0) L 08/30/17 05:20 Reactive Lymphs % (Man) 1.0 % 08/30/17 05:20 Monocytes % (Manual) 1.0 % (0.0-7.3) 08/30/17 05:20 Eosinophils % (Manual) 0 % (0.0-4.3) 08/29/17 04:30 Basophils % (Manual) 0 % (0.0-1.8) 08/29/17 04:30 Metamyelocytes % 2.0 % 08/30/17 05:20 Myelocytes % 1.0 % 08/30/17 05:20 Promyelocytes % 0 % 08/30/17 05:20 Blast Cells % 0 % 08/30/17 05:20 Nucleated RBC % 1.0 % (0.0-0.9) H 08/30/17 05:20 Seg Neutrophils # Nuclear Plant Instrument Technician 08/19/17 07:37 Seg Neutrophils # Man 32.7 K/mm3 (1.8-7.7) H 08/30/17 05:20 Band Neutrophils # 4.9 K/mm3 08/30/17 05:20 Lymphocytes # (Manual) 1.2 K/mm3 (1.2-5.4) 08/30/17 05:20 Abs React Lymphs (Man) 0.4 K/mm3 08/30/17 05:20 Monocytes # (Manual) 0.4 K/mm3 (0.0-0.8) 08/30/17 05:20 Eosinophils # (Manual) 0.0 K/mm3 (0.0-0.4) 08/30/17 05:20 Basophils # (Manual) 0.0 K/mm3 (0.0-0.1) 08/30/17 05:20 Metamyelocytes # 0.8 K/mm3 08/30/17 05:20 Myelocytes # 0.4 K/mm3 08/30/17 05:20 Promyelocytes # 0.0 K/mm3 08/30/17 05:20 Blast Cells # 0.0 K/mm3 08/30/17 05:20 Pathologist Review Not Reportable 08/30/17 05:20 WBC Morphology Not Reportable 08/30/17 05:20 Hypersegmented Neuts Not Reportable 08/30/17 05:20 Hyposegmented Neuts Not Reportable 08/30/17 05:20 Hypogranular Neuts Not Reportable 08/30/17 05:20 Smudge Cells Not Reportable 08/30/17 05:20 Toxic Granulation Not Reportable 08/30/17 05:20 Toxic Vacuolation Not Reportable 08/30/17 05:20 Dohle Bodies Not Reportable 08/30/17 05:20 Pelger-Huet Anomaly Not Reportable 08/30/17 05:20 Ariel Rods Not Reportable 08/30/17 05:20 Platelet Estimate Consistent w auto 08/30/17 05:20 Clumped Platelets Few 08/30/17 05:20 Plt Clumps, EDTA Not Reportable 08/30/17 05:20 Large Platelets Not Reportable 08/30/17 05:20 Giant Platelets Few 08/30/17 05:20 Platelet Satelliting Not Reportable 08/30/17 05:20 Plt Morphology Comment Not Reportable 08/30/17 05:20 RBC Morphology Not Reportable 08/30/17 05:20 Dimorphic RBCs Not Reportable 08/30/17 05:20 Polychromasia 1+ 08/30/17 05:20 Hypochromasia 1+ 08/30/17 05:20 Poikilocytosis 1+ 08/30/17 05:20 Anisocytosis 2+ 08/30/17 05:20 Microcytosis Not Reportable 08/30/17 05:20 Macrocytosis Few 08/30/17 05:20 Spherocytes Not Reportable 08/30/17 05:20 Pappenheimer Bodies Not Reportable 08/30/17 05:20 Sickle Cells Not Reportable 08/30/17 05:20 Target Cells Rare 08/30/17 05:20 Tear Drop Cells Not Reportable 08/30/17 05:20 Ovalocytes Not Reportable 08/30/17 05:20 Stomatocytes Few 08/20/17 03:20 Helmet Cells Not Reportable 08/30/17 05:20 Vera-Tiger Bodies Not Reportable 08/30/17 05:20 Rembert Rings Not Reportable 08/30/17 05:20 Yusuf Cells Few 08/30/17 05:20 Bite Cells Not Reportable 08/30/17 05:20 Crenated Cell Not Reportable 08/30/17 05:20 Elliptocytes Not Reportable 08/30/17 05:20 Acanthocytes (Spur) Not Reportable 08/30/17 05:20 Rouleaux Not Reportable 08/30/17 05:20 Hemoglobin C Crystals Not Reportable 08/30/17 05:20 Schistocytes Not Reportable 08/30/17 05:20 Malaria parasites Not Reportable 08/30/17 05:20 Jovanni Bodies Not Reportable 08/30/17 05:20 Hem Pathologist Commnt No 08/30/17 05:20 PT 14.9 Sec. (12.2-14.9) 08/28/17 22:30 INR 1.11 (0.87-1.13) 08/28/17 22:30 APTT 28.9 Sec. (24.2-36.6) 08/28/17 13:05 POC ABG pH 7.335 (7.35-7.45) L 08/30/17 03:31 POC ABG pCO2 44.1 (35-45) 08/30/17 03:31 POC ABG pO2 117 (80-105) H 08/30/17 03:31 POC ABG HCO3 23.5 08/30/17 03:31 POC ABG Total CO2 25 08/30/17 03:31 POC ABG O2 Sat 98 08/30/17 03:31 POC ABG Base Excess -2 08/30/17 03:31 VBG pH 7.462 (7.320-7.420) H 08/08/17 14:52 FiO2 50 % 08/30/17 03:31 Sodium 142 mmol/L (137-145) 08/30/17 05:20 Potassium 4.5 mmol/L (3.6-5.0) 08/30/17 05:20 Chloride 101.5 mmol/L (98-107) 08/30/17 05:20 Carbon Dioxide 22 mmol/L (22-30) 08/30/17 05:20 Anion Gap 23 mmol/L 08/30/17 05:20 BUN 83 mg/dL (7-17) H 08/30/17 05:20 Creatinine 2.9 mg/dL (0.7-1.2) H 08/30/17 05:20 Estimated GFR 20 ml/min 08/30/17 05:20 BUN/Creatinine Ratio 29 % 08/30/17 05:20 Glucose 334 mg/dL (65-100) H 08/30/17 05:20 POC Glucose 309 (70-105) H 08/30/17 05:20 Lactic Acid 1.60 mmol/L (0.7-2.0) 08/17/17 11:20 Calcium 9.0 mg/dL (8.4-10.2) 08/30/17 05:20 Phosphorus 3.20 mg/dL (2.5-4.5) 08/30/17 05:20 Magnesium 1.70 mg/dL (1.7-2.3) 08/30/17 05:20 Total Bilirubin 0.50 mg/dL (0.1-1.2) 08/26/17 05:30 Direct Bilirubin 0.2 mg/dL (0-0.2) 08/08/17 14:11 Indirect Bilirubin 0.3 mg/dL 08/08/17 14:11 AST 135 units/L (5-40) H 08/26/17 05:30 ALT 49 units/L (7-56) 08/26/17 05:30 Alkaline Phosphatase 211 units/L (35-129) H 08/26/17 05:30 Ammonia 25.0 umol/L (25-60) 08/08/17 14:52 Troponin T 0.132 ng/mL (0.00-0.029) H* 08/09/17 13:25 C-Reactive Protein 19.10 mg/dL (0.00-1.30) H 08/29/17 12:30 NT-Pro-B Natriuret Pep 6156 pg/mL (0-900) H 08/08/17 14:11 Total Protein 4.8 g/dL (6.3-8.2) L 08/26/17 05:30 Albumin 2.0 g/dL (3.9-5) L 08/26/17 05:30 Albumin/Globulin Ratio 0.7 % 08/26/17 05:30 Triglycerides 62 mg/dL (2-149) 08/08/17 21:23 Cholesterol 91 mg/dL (50-199) 08/08/17 21:23 LDL Cholesterol Direct 53 mg/dL (50-130) 08/08/17 21:23 HDL Cholesterol 26 mg/dL (40-59) L 08/08/17 21:23 Cholesterol/HDL Ratio 3.50 % 08/08/17 21:23 Amylase 45 units/L (27-131) 08/16/17 09:50 Lipase 34 units/L (13-60) 08/16/17 09:50 TSH 6.580 mlU/mL (0.270-4.200) H 08/08/17 14:22 Free T4 1.46 ng/dL (0.76-1.46) 08/08/17 14:22 Total Cortisol 30.1 mcg/dL () 08/13/17 06:14 Urine Color Yellow (Yellow) 08/08/17 20:15 Urine Turbidity Turbid (Clear) 08/08/17 20:15 Urine pH 8.0 (5.0-7.0) H 08/08/17 20:15 Ur Specific Cash 1.015 (1.003-1.030) 08/08/17 20:15 Urine Protein 100 mg/dl mg/dL (Negative) 08/08/17 20:15 Urine Glucose (UA) Neg mg/dL (Negative) 08/08/17 20:15 Urine Ketones Neg mg/dL (Negative) 08/08/17 20:15 Urine Blood Mod (Negative) 08/08/17 20:15 Urine Nitrite Neg (Negative) 08/08/17 20:15 Urine Bilirubin Neg (Negative) 08/08/17 20:15 Urine Urobilinogen < 2.0 mg/dL (<2.0) 08/08/17 20:15 Ur Leukocyte Esterase Lg (Negative) 08/08/17 20:15 Urine WBC (Auto) 24.0 /HPF (0.0-6.0) H 08/08/17 20:15 Urine RBC (Auto) 3.0 /HPF (0.0-6.0) 08/08/17 20:15 U Epithel Cells (Auto) 3.0 /HPF (0-13.0) 08/08/17 20:15 Urine Bacteria (Auto) 4+ /HPF (Negative) 08/08/17 20:15 Urine Mucus 3+ /HPF 08/08/17 20:15 Fluid Type Peritoneal 08/08/17 18:18 Fluid Color Straw 08/08/17 18:18 Fluid Appearance Clear 08/08/17 18:18 Fluid pH 7.74 08/08/17 18:18 Fluid WBC 4 /mm3 08/08/17 18:18 Fluid RBC 1 /mm3 08/08/17 18:18 Fluid Seg Neutrophils 12 % 08/08/17 18:18 Fluid Lymphocytes 0 % 08/08/17 18:18 Fluid Reactive Lymphs 0 % 08/08/17 18:18 Fluid Monocytes 1 % 08/08/17 18:18 Fluid Eosinophils 0 % 08/08/17 18:18 Fluid Basophils 0 % 08/08/17 18:18 Fluid Glucose 315 mg/dL (40-70) H 08/08/17 18:18 Random Vancomycin 19.5 ug/mL (0-40.0) 08/22/17 03:40 Hep Bs Antigen Non-reactive (Negative) 08/22/17 03:40 Hepatitis C Antibody Non-reactive (NonReactive) 08/22/17 03:40 Miscellaneous Test Flexitest 1 H 08/22/17 08:50 Blood Type O POSITIVE 08/28/17 11:56 Antibody Screen TNR 08/28/17 11:56 VAN Antibody Screen Negative 08/28/17 11:56 Crossmatch See Detail 08/28/17 11:56
--- NOTE | 2017-08-30 12:57 | Event Note ---
Date: 08/30/17 Pt s/p conversion of TLC to VC on 08/19/17. She was set up for PC placement 2 days ago, but a code Med was called and the procedure was called. She has since been transferred to ICU and is now intubated. Will place upper body PC (if infectious status allows otherwise new VC) when her respiratory status improves.
--- NOTE | 2017-08-30 12:59 | XRay Report ---
Single view chest: Compared to 09/09 and . History: ET tube placement. Findings: Cardiomegaly. Trachea is midline. Stable support system. Tip of endotracheal tube in normal position. Linear right lower lobe new density suggestive of discoid atelectasis. Impression: Endotracheal tube in normal position. New linear density right lower lobe suggestive of discoid atelectasis.
--- NOTE | 2017-08-30 14:01 | Event Note ---
Date: 08/30/17 Procedure: Rapid sequence intubation Indication: Non-functioning ET tube Description: Patient was not ventilating at all with the existing ET tube. This was removed and found to be completely plugged off with hardened/thick/brown material/mucous. There was the same material obstructing the back of her throat that was suctioned out. She was bagged with 100% FiO2 via BMV. Received Etomidate 20mg IV and Succinylcholine 100mg IV. MAC 4 was used to obtain a grade III view, DL x 2. Bougie was inserted through the vocal cords. 7.5 ET tube placed over the bougie, secured in place. + ET CO2, bilateral BS, O2 sat up to 100% after procedure and did not drop below 88% during procedure. Initial CXR showed ET tube encroaching into the R mainstem so tube pulled back to 22 cm at lip. Ventilating well on ACVC with new tube. No complications noted.
--- NOTE | 2017-08-30 14:09 | Progress Note ---
Assessment and Plan Imp: 1. Acute bacterial peritonitis/abscess s/p PD cath removal and exlap 2. SBO 3. Acute respiratory failure, hypoxia 4. Morbid obesity, excess cals. 5. ESRD 6. Sepsis, ongoing 7. Leukemoid reaction due to high-dose steroids versus worsening infection 8. LGIB with acute blood loss anemia Rec: 1. Cont. stress-dose steroids until off pressors 2. Monitor volume status with TPN 3. Cont. ventilator 4. Monitor H/H and for recurrent bleeding 5. Levophed if necessary to keep MAP > 65; has Nair and pigtail on her R femoral vascath 6. SCDs ordered; stopped subQ heparin 7. ABX as per ID except noted to have MRSA from wound, intermediate to Vanco, so will change to Zyvox; f/u repeat cultures 8. Prognosis is guarded to poor given multiple issues; family updated at bedside CCT 31 minutes Subjective Date of service: 08/30/17 Principal diagnosis: /anemia, poor oral intake. Interval history: Intubated this AM due to worsening respiratory acidosis. On Levophed 6-12mcg. Had 1 episode of small rectal bleeding. She is currently sedated on Fentanyl. ET tube changed out without complications, see separate note. She cannot give history. Active Medications Al Hydrox/Mg Hydrox/Simethicone (Alum-Mag Hydrox-Simeth [id number]/5ml) 15 ml PO Q4H PRN PRN Reason: Indigestion Last Admin: 08/09/17 23:37 Dose: 15 ml Albuterol (Proventil) 2.5 mg IH Q4HRT PRN PRN Reason: Shortness Of Breath Last Admin: 08/24/17 21:49 Dose: 2.5 mg Albuterol/Ipratropium (Duoneb *Not For Prn Use*) 1 ampul IH Q6HRT GLORIA Last Admin: 08/30/17 13:32 Dose: 1 ampul Heparin Sodium (Porcine) (Heparin) 5,000 unit IV ISIAH PRN PRN Reason: hemodialysis Last Admin: 08/29/17 15:31 Dose: 5,000 unit Hydrocortisone Sodium Succinate (Solu-Cortef) 100 mg IV Q8HR GLORIA Last Admin: 08/30/17 13:01 Dose: 100 mg Hydromorphone HCl (Dilaudid) 1 mg IV Q4H PRN PRN Reason: Pain , Severe (7-10) Last Admin: 08/28/17 09:52 Dose: 1 mg Hydrophilic Ointment (Vaseline Lip Therapy) 1 applic TP DIRECT PRN PRN Reason: DRY LIPS Norepinephrine 8 mg/ Sodium (Chloride) 250 mls @ 3.75 mls/hr IV TITR GLORIA; 2 MCG /MIN PRN Reason: Protocol Last Titration: 08/30/17 13:00 Dose: 5 mcg/min, 9.37 mls/hr Meropenem 1,000 mg/ Sodium (Chloride) 100 mls @ 100 mls/hr IV Q24HR GLORIA PRN Reason: Protocol Last Admin: 08/30/17 10:13 Dose: 100 mls/hr Micafungin Sodium 100 mg/ (Sodium Chloride) 100 mls @ 100 mls/hr IV QDAY GLORIA PRN Reason: Protocol Last Admin: 08/30/17 10:10 Dose: 100 mls/hr Amino Acids/Electrolytes/Dextrose (Tpn Adult) 1,800 mls @ 75 mls/hr IV DAILY@ 1999 REPLACED BY [facility] PRN Reason: Protocol Stop: 08/30/17 19:59 Last Admin: 08/29/17 23:17 Dose: 75 mls/hr Sodium Chloride (Nacl 0.9%) 100 mls @ 999 mls/hr IV ISIAH PRN PRN Reason: Hypotension Fentanyl Citrate (Fentanyl Drip Premix) 2,000 mcg in 100 mls @ 7.28 mls/hr IV TITR GLORIA; 1 MCG/KG/HR PRN Reason: Protocol Last Admin: 08/30/17 13:04 Dose: 2 mcg/kg/hr, 14.56 mls/hr Sodium Chloride (Nacl 0.9%) 100 mls @ 999 mls/hr IV ISIAH PRN PRN Reason: Hypotension Sodium Chloride (Nacl 0.9%) 100 mls @ 999 mls/hr IV ISIAH PRN PRN Reason: Hypotension Amino Acids/Electrolytes/Dextrose (Tpn Adult) 1,800 mls @ 75 mls/hr IV DAILY@ 1999 GLORIA PRN Reason: Protocol Stop: 08/31/17 19:59 Fat Emulsion Intravenous (Intralipid 20%) 250 mls @ 21 mls/hr IV DAILY@1999 REPLACED BY [facility] Stop: 08/31/17 08:00 Linezolid (Zyvox 600mg/300ml) 600 mg in 300 mls @ 300 mls/hr IV Q12HR REPLACED BY [facility] Insulin Detemir (Levemir) 15 units SUB-Q DAILY REPLACED BY [facility] Insulin Human Regular (Novolin R) 0 units SUB-Q Q6HR GLORIA PRN Reason: Protocol Last Admin: 08/30/17 12:54 Dose: 4 units Lorazepam (Ativan) 2 mg IV Q6H PRN PRN Reason: Agitation Last Admin: 08/30/17 09:09 Dose: 2 mg Multi-Ingred Cream/Lotion/Oil/Oint (Artificial Tears Ophth Oint) 1 applic OU Q4H PRN PRN Reason: Dry Eye(s) Ondansetron HCl (Zofran) 4 mg IV Q6H PRN PRN Reason: Nausea And Vomiting Last Admin: 08/16/17 22:50 Dose: 4 mg Pantoprazole Sodium (Protonix) 40 mg IV BID GLORIA Last Admin: 08/30/17 09:15 Dose: 40 mg Sodium Chloride (Nacl 0.9% 500 Ml) 1 ml IV DIRECT REPLACED BY [facility] Objective Vital Signs - 12hr 08/30/17 08/30/17 08/30/17 02:10 02:15 02:31 Temperature Pulse Rate 100 H 96 H 104 H Pulse Rate [ Anterior Bilateral Throughout] Pulse Rate [ Bilateral Throughout] Respiratory 21 20 Rate Respiratory Rate [Anterior Bilateral Throughout] Respiratory Rate [Bilateral Throughout] Blood Pressure 138/114 158/53 161/49 O2 Sat by Pulse 100 100 100 Oximetry 08/30/17 08/30/17 08/30/17 02:45 02:46 02:58 Temperature Pulse Rate 101 H Pulse Rate [ Anterior Bilateral Throughout] Pulse Rate [ 101 H 103 H Bilateral Throughout] Respiratory 24 Rate Respiratory Rate [Anterior Bilateral Throughout] Respiratory 24 23 Rate [Bilateral Throughout] Blood Pressure 147/114 O2 Sat by Pulse 94 Oximetry 08/30/17 08/30/17 08/30/17 03:01 03:15 03:31 Temperature Pulse Rate 96 H 104 H 97 H Pulse Rate [ Anterior Bilateral Throughout] Pulse Rate [ Bilateral Throughout] Respiratory 22 25 H 23 Rate Respiratory Rate [Anterior Bilateral Throughout] Respiratory Rate [Bilateral Throughout] Blood Pressure 138/114 138/114 121/73 O2 Sat by Pulse 100 100 Oximetry 08/30/17 08/30/17 08/30/17 03:45 03:54 04:00 Temperature 98.6 F Pulse Rate 100 H 97 H Pulse Rate [ Anterior Bilateral Throughout] Pulse Rate [ Bilateral Throughout] Respiratory 25 H 20 Rate Respiratory Rate [Anterior Bilateral Throughout] Respiratory Rate [Bilateral Throughout] Blood Pressure 121/73 97/76 O2 Sat by Pulse 95 79 L Oximetry 08/30/17 08/30/17 08/30/17 04:15 04:31 04:45 Temperature Pulse Rate 106 H 104 H 103 H Pulse Rate [ Anterior Bilateral Throughout] Pulse Rate [ Bilateral Throughout] Respiratory 22 23 24 Rate Respiratory Rate [Anterior Bilateral Throughout] Respiratory Rate [Bilateral Throughout] Blood Pressure 89/68 126/63 145/114 O2 Sat by Pulse 100 100 Oximetry 08/30/17 08/30/17 08/30/17 05:01 05:15 05:31 Temperature Pulse Rate 99 H 108 H 108 H Pulse Rate [ Anterior Bilateral Throughout] Pulse Rate [ Bilateral Throughout] Respiratory 24 23 21 Rate Respiratory Rate [Anterior Bilateral Throughout] Respiratory Rate [Bilateral Throughout] Blood Pressure 125/80 125/80 142/77 O2 Sat by Pulse 100 99 Oximetry 08/30/17 08/30/17 08/30/17 05:45 06:01 06:15 Temperature Pulse Rate 98 H 106 H 91 H Pulse Rate [ Anterior Bilateral Throughout] Pulse Rate [ Bilateral Throughout] Respiratory 21 26 H 22 Rate Respiratory Rate [Anterior Bilateral Throughout] Respiratory Rate [Bilateral Throughout] Blood Pressure 142/77 83/50 100/50 O2 Sat by Pulse 97 99 93 Oximetry 08/30/17 08/30/17 08/30/17 06:31 06:45 07:01 Temperature Pulse Rate 104 H 103 H 116 H Pulse Rate [ Anterior Bilateral Throughout] Pulse Rate [ Bilateral Throughout] Respiratory 26 H 17 23 Rate Respiratory Rate [Anterior Bilateral Throughout] Respiratory Rate [Bilateral Throughout] Blood Pressure 57/36 138/108 138/108 O2 Sat by Pulse 90 87 90 Oximetry 08/30/17 08/30/17 08/30/17 07:15 07:31 07:45 Temperature Pulse Rate 105 H 105 H 107 H Pulse Rate [ Anterior Bilateral Throughout] Pulse Rate [ Bilateral Throughout] Respiratory 26 H 25 H 26 H Rate Respiratory Rate [Anterior Bilateral Throughout] Respiratory Rate [Bilateral Throughout] Blood Pressure 138/108 138/108 138/108 O2 Sat by Pulse 94 99 91 Oximetry 08/30/17 08/30/17 08/30/17 08:00 08:01 08:15 Temperature 98.2 F Pulse Rate 110 H 85 Pulse Rate [ Anterior Bilateral Throughout] Pulse Rate [ Bilateral Throughout] Respiratory 24 28 H Rate Respiratory Rate [Anterior Bilateral Throughout] Respiratory Rate [Bilateral Throughout] Blood Pressure 91/71 91/71 O2 Sat by Pulse 100 93 Oximetry 08/30/17 08/30/17 08/30/17 08:30 08:45 09:01 Temperature Pulse Rate 107 H 102 H 96 H Pulse Rate [ Anterior Bilateral Throughout] Pulse Rate [ Bilateral Throughout] Respiratory 22 20 22 Rate Respiratory Rate [Anterior Bilateral Throughout] Respiratory Rate [Bilateral Throughout] Blood Pressure 130/103 117/45 162/86 O2 Sat by Pulse 98 100 100 Oximetry 08/30/17 08/30/17 08/30/17 09:32 09:54 12:00 Temperature 99.1 F Pulse Rate 92 H Pulse Rate [ 92 H 114 H Anterior Bilateral Throughout] Pulse Rate [ Bilateral Throughout] Respiratory Rate Respiratory 26 H Rate [Anterior Bilateral Throughout] Respiratory Rate [Bilateral Throughout] Blood Pressure 105/56 O2 Sat by Pulse 93 Oximetry 08/30/17 08/30/17 13:26 13:46 Temperature Pulse Rate 87 Pulse Rate [ 89 85 Anterior Bilateral Throughout] Pulse Rate [ Bilateral Throughout] Respiratory Rate Respiratory 20 20 Rate [Anterior Bilateral Throughout] Respiratory Rate [Bilateral Throughout] Blood Pressure 94/49 O2 Sat by Pulse 100 Oximetry Constitutional: alert, other (critically ill on vent, obese) Eyes: non-icteric ENT: oropharynx moist, other (NG tube in place in right nare) Neck: supple, no lymphadenopathy Effort: mildly labored Ascultation: Bilateral: other (coarse BS bilaterally) Cardiovascular: regular rate and rhythm (no mrg) Gastrointestinal: absent bowel sounds, non-tender, other (abdominal incision with dressing noted, obese) Extremities: no cyanosis, pink and warm, edema (3+ bilateral LE edema) Neurologic: normal mental status, non-focal exam, pupils equal and round Psychiatric: mood appropriate, affect normal CBC and BMP: 08/30/17 05:20 08/30/17 05:20 ABG, PT/INR, D-dimer: ABG POC ABG pH 7.335 (7.35-7.45) L 08/30/17 03:31 POC ABG pCO2 44.1 (35-45) 08/30/17 03:31 POC ABG pO2 117 (80-105) H 08/30/17 03:31 POC ABG HCO3 23.5 08/30/17 03:31 POC ABG Total CO2 25 08/30/17 03:31 POC ABG O2 Sat 98 08/30/17 03:31 PT/INR, D-dimer PT 14.9 Sec. (12.2-14.9) 08/28/17 22:30 INR 1.11 (0.87-1.13) 08/28/17 22:30 Abnormal lab findings: Abnormal Labs 08/08/17 08/08/17 08/09/17 21:23 21:31 11:19 WBC 15.7 H RBC 2.93 L Hgb 8.7 L Hct 26.8 L MCV RDW 19.2 H Plt Count Lymph % (Auto) [place] % (Auto) [place] # Seg Neutrophils % Seg Neuts % (Manual) Lymphocytes % (Manual) Monocytes % (Manual) Nucleated RBC % Seg Neutrophils # Seg Neutrophils # Man Lymphocytes # (Manual) Monocytes # (Manual) Eosinophils # (Manual) Basophils # (Manual) PT INR POC ABG pH 7.490 H POC ABG pCO2 POC ABG pO2 122 H Sodium Potassium Chloride Carbon Dioxide BUN Creatinine Glucose POC Glucose Calcium Phosphorus Magnesium AST ALT Alkaline Phosphatase Troponin T 0.133 H* C-Reactive Protein Total Protein Albumin HDL Cholesterol 26 L Miscellaneous Test Crossmatch 08/09/17 08/10/17 08/10/17 13:25 04:45 04:45 WBC 15.5 H RBC 2.97 L Hgb 8.9 L Hct 27.0 L MCV RDW 19.2 H Plt Count Lymph % (Auto) [place] % (Auto) [place] # Seg Neutrophils % Seg Neuts % (Manual) 73.0 H Lymphocytes % (Manual) 7.0 L Monocytes % (Manual) 14.0 H Nucleated RBC % Seg Neutrophils # Seg Neutrophils # Man 11.3 H Lymphocytes # (Manual) 1.1 L Monocytes # (Manual) 2.2 H Eosinophils # (Manual) Basophils # (Manual) 0.2 H PT INR POC ABG pH POC ABG pCO2 POC ABG pO2 Sodium Potassium 3.3 L Chloride 97.3 L Carbon Dioxide 21 L BUN 23 H Creatinine 6.5 H Glucose POC Glucose Calcium 7.3 L Phosphorus Magnesium AST ALT Alkaline Phosphatase 138 H Troponin T 0.132 H* C-Reactive Protein Total Protein 4.8 L Albumin 1.4 L HDL Cholesterol Miscellaneous Test Crossmatch 08/11/17 08/11/17 08/12/17 04:00 04:00 05:50 WBC 19.3 H RBC 3.10 L Hgb 9.5 L Hct 28.2 L MCV RDW 19.2 H Plt Count 463 H Lymph % (Auto) 7.5 L [place] % (Auto) 14.6 H [place] # 2.8 H Seg Neutrophils % 77.0 H Seg Neuts % (Manual) Lymphocytes % (Manual) Monocytes % (Manual) Nucleated RBC % Seg Neutrophils # 14.8 H Seg Neutrophils # Man Lymphocytes # (Manual) Monocytes # (Manual) Eosinophils # (Manual) Basophils # (Manual) PT INR POC ABG pH POC ABG pCO2 POC ABG pO2 Sodium 136 L 136 L Potassium 3.3 L Chloride 96.3 L 96.6 L Carbon Dioxide BUN 26 H 26 H Creatinine 6.4 H 6.2 H Glucose 135 H 133 H POC Glucose Calcium 8.2 L Phosphorus Magnesium 1.30 L AST ALT Alkaline Phosphatase 139 H Troponin T C-Reactive Protein Total Protein 5.5 L Albumin 1.7 L HDL Cholesterol Miscellaneous Test Crossmatch 08/12/17 08/12/17 08/12/17 05:50 05:50 05:50 WBC 20.1 H RBC 3.06 L Hgb 9.3 L Hct 27.9 L MCV RDW 18.4 H Plt Count 471 H Lymph % (Auto) [place] % (Auto) [place] # Seg Neutrophils % Seg Neuts % (Manual) 85.0 H Lymphocytes % (Manual) 8.0 L Monocytes % (Manual) Nucleated RBC % Seg Neutrophils # Seg Neutrophils # Man 17.1 H Lymphocytes # (Manual) Monocytes # (Manual) 1.0 H Eosinophils # (Manual) Basophils # (Manual) PT 15.2 H INR 1.14 H POC ABG pH POC ABG pCO2 POC ABG pO2 Sodium Potassium Chloride Carbon Dioxide BUN Creatinine Glucose POC Glucose Calcium Phosphorus Magnesium AST ALT Alkaline Phosphatase Troponin T C-Reactive Protein 28.90 H Total Protein Albumin HDL Cholesterol Miscellaneous Test Crossmatch 08/12/17 08/13/17 08/13/17 16:23 06:14 06:14 WBC 21.8 H RBC 3.11 L Hgb 9.4 L Hct 28.2 L MCV RDW 18.2 H Plt Count 492 H Lymph % (Auto) [place] % (Auto) [place] # Seg Neutrophils % Seg Neuts % (Manual) 73.0 H Lymphocytes % (Manual) 2.0 L Monocytes % (Manual) 15 H Nucleated RBC % Seg Neutrophils # Seg Neutrophils # Man 15.9 H Lymphocytes # (Manual) 0.4 L Monocytes # (Manual) 2.4 H Eosinophils # (Manual) Basophils # (Manual) PT INR POC ABG pH POC ABG pCO2 POC ABG pO2 Sodium Potassium Chloride 96.2 L Carbon Dioxide BUN 28 H Creatinine 5.6 H Glucose 114 H POC Glucose Calcium Phosphorus Magnesium AST ALT Alkaline Phosphatase Troponin T C-Reactive Protein 26.10 H Total Protein Albumin HDL Cholesterol Miscellaneous Test Crossmatch 08/13/17 08/14/17 08/14/17 16:39 04:00 04:00 WBC 22.1 H RBC 3.25 L Hgb 9.9 L Hct 29.5 L MCV RDW 17.9 H Plt Count 525 H Lymph % (Auto) [place] % (Auto) [place] # Seg Neutrophils % Seg Neuts % (Manual) 74.0 H Lymphocytes % (Manual) 8.0 L Monocytes % (Manual) 12.0 H Nucleated RBC % Seg Neutrophils # Seg Neutrophils # Man 16.4 H Lymphocytes # (Manual) Monocytes # (Manual) 2.7 H Eosinophils # (Manual) Basophils # (Manual) PT INR POC ABG pH POC ABG pCO2 POC ABG pO2 Sodium 134 L Potassium 3.3 L Chloride 93.3 L Carbon Dioxide BUN 27 H Creatinine 6.0 H Glucose 152 H POC Glucose 151 H Calcium Phosphorus Magnesium AST ALT Alkaline Phosphatase Troponin T C-Reactive Protein Total Protein Albumin HDL Cholesterol Miscellaneous Test Crossmatch 08/15/17 08/16/17 08/16/17 09:10 09:50 09:50 WBC 31.1 H RBC 3.21 L Hgb 9.6 L Hct 29.3 L MCV RDW 18.1 H Plt Count 642 H Lymph % (Auto) [place] % (Auto) [place] # Seg Neutrophils % Seg Neuts % (Manual) 74.0 H Lymphocytes % (Manual) 4.0 L Monocytes % (Manual) 9.0 H Nucleated RBC % Seg Neutrophils # Seg Neutrophils # Man 23.0 H Lymphocytes # (Manual) Monocytes # (Manual) 2.8 H Eosinophils # (Manual) Basophils # (Manual) PT INR POC ABG pH POC ABG pCO2 POC ABG pO2 Sodium 136 L 136 L Potassium 3.5 L Chloride 97.6 L 94.9 L Carbon Dioxide BUN 27 H 28 H Creatinine 5.6 H 5.5 H Glucose 117 H 103 H POC Glucose Calcium Phosphorus Magnesium AST ALT Alkaline Phosphatase 137 H Troponin T C-Reactive Protein Total Protein 5.4 L Albumin 1.5 L HDL Cholesterol Miscellaneous Test Crossmatch 08/16/17 08/17/17 08/17/17 09:50 05:00 06:26 WBC RBC Hgb Hct MCV RDW Plt Count Lymph % (Auto) [place] % (Auto) [place] # Seg Neutrophils % Seg Neuts % (Manual) Lymphocytes % (Manual) Monocytes % (Manual) Nucleated RBC % Seg Neutrophils # Seg Neutrophils # Man Lymphocytes # (Manual) Monocytes # (Manual) Eosinophils # (Manual) Basophils # (Manual) PT INR POC ABG pH POC ABG pCO2 POC ABG pO2 Sodium 134 L Potassium 3.0 L Chloride 97.8 L Carbon Dioxide BUN 30 H Creatinine 5.3 H Glucose 147 H POC Glucose 165 H Calcium 7.5 L Phosphorus Magnesium AST ALT Alkaline Phosphatase Troponin T C-Reactive Protein 32.30 H Total Protein Albumin HDL Cholesterol Miscellaneous Test Crossmatch 08/17/17 08/17/17 08/17/17 10:56 11:20 11:20 WBC 39.1 H RBC 3.10 L Hgb 9.2 L Hct 28.6 L MCV RDW 18.3 H Plt Count 580 H Lymph % (Auto) [place] % (Auto) [place] # Seg Neutrophils % Seg Neuts % (Manual) 89.5 H Lymphocytes % (Manual) 3.5 L Monocytes % (Manual) Nucleated RBC % Seg Neutrophils # Seg Neutrophils # Man 35.0 H Lymphocytes # (Manual) Monocytes # (Manual) 2.5 H Eosinophils # (Manual) Basophils # (Manual) 0.2 H PT INR POC ABG pH 7.464 H POC ABG pCO2 34.1 L POC ABG pO2 75 L Sodium Potassium Chloride Carbon Dioxide BUN Creatinine Glucose POC Glucose Calcium Phosphorus Magnesium AST ALT Alkaline Phosphatase Troponin T C-Reactive Protein Total Protein Albumin HDL Cholesterol Miscellaneous Test Flexitest 1 H Crossmatch 08/17/17 08/17/17 08/17/17 11:20 16:57 20:20 WBC 34.4 H RBC 2.81 L Hgb 8.4 L Hct 26.0 L MCV RDW 17.8 H Plt Count 455 H Lymph % (Auto) [place] % (Auto) [place] # Seg Neutrophils % Seg Neuts % (Manual) Lymphocytes % (Manual) 3.5 L Monocytes % (Manual) Nucleated RBC % 5.0 H Seg Neutrophils # Seg Neutrophils # Man 16.5 H Lymphocytes # (Manual) Monocytes # (Manual) 1.0 H Eosinophils # (Manual) Basophils # (Manual) PT 16.0 H INR 1.29 H POC ABG pH POC ABG pCO2 POC ABG pO2 Sodium 135 L Potassium 2.9 L* Chloride Carbon Dioxide 20 L BUN 32 H Creatinine 5.4 H Glucose 129 H POC Glucose Calcium 7.5 L Phosphorus Magnesium 1.50 L AST 85 H ALT Alkaline Phosphatase Troponin T C-Reactive Protein Total Protein 4.0 L D Albumin 1.6 L HDL Cholesterol Miscellaneous Test Crossmatch 08/17/17 08/17/17 08/18/17 20:54 23:47 04:26 WBC RBC Hgb Hct MCV RDW Plt Count Lymph % (Auto) [place] % (Auto) [place] # Seg Neutrophils % Seg Neuts % (Manual) Lymphocytes % (Manual) Monocytes % (Manual) Nucleated RBC % Seg Neutrophils # Seg Neutrophils # Man Lymphocytes # (Manual) Monocytes # (Manual) Eosinophils # (Manual) Basophils # (Manual) PT INR POC ABG pH 7.557 H POC ABG pCO2 23.1 L 29.0 L POC ABG pO2 187 H 148 H Sodium Potassium Chloride Carbon Dioxide BUN Creatinine Glucose POC Glucose 188 H Calcium Phosphorus Magnesium AST ALT Alkaline Phosphatase Troponin T C-Reactive Protein Total Protein Albumin HDL Cholesterol Miscellaneous Test Crossmatch 08/18/17 08/18/17 08/18/17 05:51 11:44 17:07 WBC RBC Hgb Hct MCV RDW Plt Count Lymph % (Auto) [place] % (Auto) [place] # Seg Neutrophils % Seg Neuts % (Manual) Lymphocytes % (Manual) Monocytes % (Manual) Nucleated RBC % Seg Neutrophils # Seg Neutrophils # Man Lymphocytes # (Manual) Monocytes # (Manual) Eosinophils # (Manual) Basophils # (Manual) PT INR POC ABG pH POC ABG pCO2 POC ABG pO2 Sodium Potassium Chloride Carbon Dioxide BUN Creatinine Glucose POC Glucose 202 H 195 H 182 H Calcium Phosphorus Magnesium AST ALT Alkaline Phosphatase Troponin T C-Reactive Protein Total Protein Albumin HDL Cholesterol Miscellaneous Test Crossmatch 08/18/17 08/18/17 08/18/17 23:45 Unknown Unknown WBC 39.0 H RBC 2.84 L Hgb 8.4 L Hct 26.5 L MCV RDW 18.0 H Plt Count 476 H Lymph % (Auto) [place] % (Auto) [place] # Seg Neutrophils % Seg Neuts % (Manual) Lymphocytes % (Manual) 7.0 L Monocytes % (Manual) 10.0 H Nucleated RBC % 3.0 H Seg Neutrophils # Seg Neutrophils # Man 15.6 H Lymphocytes # (Manual) Monocytes # (Manual) 3.9 H Eosinophils # (Manual) Basophils # (Manual) PT INR POC ABG pH POC ABG pCO2 POC ABG pO2 Sodium Potassium Chloride Carbon Dioxide 19 L BUN 34 H Creatinine 5.6 H Glucose 201 H POC Glucose 163 H Calcium 7.8 L Phosphorus 1.90 L D Magnesium 1.60 L AST ALT Alkaline Phosphatase Troponin T C-Reactive Protein Total Protein Albumin HDL Cholesterol Miscellaneous Test Crossmatch 08/19/17 08/19/17 08/19/17 04:18 05:00 05:00 WBC 40.0 H RBC 2.46 L Hgb 7.3 L Hct 22.6 L MCV RDW 18.1 H Plt Count Lymph % (Auto) [place] % (Auto) [place] # Seg Neutrophils % Seg Neuts % (Manual) Lymphocytes % (Manual) 8.0 L Monocytes % (Manual) Nucleated RBC % 2.0 H Seg Neutrophils # Seg Neutrophils # Man 16.4 H Lymphocytes # (Manual) Monocytes # (Manual) 1.2 H Eosinophils # (Manual) 1.2 H Basophils # (Manual) PT INR POC ABG pH 7.463 H POC ABG pCO2 29.7 L POC ABG pO2 134 H Sodium Potassium 5.1 H D Chloride Carbon Dioxide 20 L BUN 40 H Creatinine 5.3 H Glucose 128 H POC Glucose Calcium 7.8 L Phosphorus 1.90 L Magnesium AST ALT Alkaline Phosphatase Troponin T C-Reactive Protein Total Protein Albumin HDL Cholesterol Miscellaneous Test Crossmatch 08/19/17 08/19/17 08/19/17 05:19 07:37 09:52 WBC 45.0 H* RBC 2.50 L Hgb 7.5 L Hct 24.5 L MCV 98 H RDW 18.4 H Plt Count Lymph % (Auto) [place] % (Auto) [place] # Seg Neutrophils % Seg Neuts % (Manual) 81.5 H Lymphocytes % (Manual) 4.0 L Monocytes % (Manual) Nucleated RBC % 1.0 H Seg Neutrophils # Seg Neutrophils # Man 36.7 H Lymphocytes # (Manual) Monocytes # (Manual) Eosinophils # (Manual) Basophils # (Manual) PT INR POC ABG pH POC ABG pCO2 POC ABG pO2 Sodium Potassium Chloride Carbon Dioxide BUN Creatinine Glucose POC Glucose 142 H Calcium Phosphorus Magnesium AST ALT Alkaline Phosphatase Troponin T C-Reactive Protein 34.20 H Total Protein Albumin HDL Cholesterol Miscellaneous Test Crossmatch 08/19/17 08/19/17 08/20/17 11:16 18:12 00:35 WBC RBC Hgb Hct MCV RDW Plt Count Lymph % (Auto) [place] % (Auto) [place] # Seg Neutrophils % Seg Neuts % (Manual) Lymphocytes % (Manual) Monocytes % (Manual) Nucleated RBC % Seg Neutrophils # Seg Neutrophils # Man Lymphocytes # (Manual) Monocytes # (Manual) Eosinophils # (Manual) Basophils # (Manual) PT INR POC ABG pH POC ABG pCO2 POC ABG pO2 Sodium Potassium Chloride Carbon Dioxide BUN Creatinine Glucose POC Glucose 143 H 137 H 164 H Calcium Phosphorus Magnesium AST ALT Alkaline Phosphatase Troponin T C-Reactive Protein Total Protein Albumin HDL Cholesterol Miscellaneous Test Crossmatch 08/20/17 08/20/17 08/20/17 03:20 03:20 04:00 WBC 48.0 H* RBC 2.55 L Hgb 7.6 L Hct 23.4 L MCV RDW 18.4 H Plt Count Lymph % (Auto) [place] % (Auto) [place] # Seg Neutrophils % Seg Neuts % (Manual) 90.0 H Lymphocytes % (Manual) 3.0 L Monocytes % (Manual) Nucleated RBC % Seg Neutrophils # Seg Neutrophils # Man 43.2 H Lymphocytes # (Manual) Monocytes # (Manual) 1.4 H Eosinophils # (Manual) 0.5 H Basophils # (Manual) PT INR POC ABG pH 7.499 H POC ABG pCO2 29.1 L POC ABG pO2 Sodium 135 L Potassium Chloride Carbon Dioxide BUN 28 H Creatinine 4.0 H Glucose 140 H POC Glucose Calcium 8.0 L Phosphorus 1.70 L Magnesium 1.60 L AST ALT Alkaline Phosphatase Troponin T C-Reactive Protein Total Protein Albumin HDL Cholesterol Miscellaneous Test Crossmatch 08/20/17 08/20/17 08/20/17 05:02 12:05 13:12 WBC RBC Hgb Hct MCV RDW Plt Count Lymph % (Auto) [place] % (Auto) [place] # Seg Neutrophils % Seg Neuts % (Manual) Lymphocytes % (Manual) Monocytes % (Manual) Nucleated RBC % Seg Neutrophils # Seg Neutrophils # Man Lymphocytes # (Manual) Monocytes # (Manual) Eosinophils # (Manual) Basophils # (Manual) PT INR POC ABG pH 7.537 H POC ABG pCO2 27.9 L POC ABG pO2 79 L Sodium Potassium Chloride Carbon Dioxide BUN Creatinine Glucose POC Glucose 158 H 203 H Calcium Phosphorus Magnesium AST ALT Alkaline Phosphatase Troponin T C-Reactive Protein Total Protein Albumin HDL Cholesterol Miscellaneous Test Crossmatch 08/20/17 08/21/17 08/21/17 17:13 00:47 03:14 WBC RBC Hgb Hct MCV RDW Plt Count Lymph % (Auto) [place] % (Auto) [place] # Seg Neutrophils % Seg Neuts % (Manual) Lymphocytes % (Manual) Monocytes % (Manual) Nucleated RBC % Seg Neutrophils # Seg Neutrophils # Man Lymphocytes # (Manual) Monocytes # (Manual) Eosinophils # (Manual) Basophils # (Manual) PT INR POC ABG pH 7.481 H POC ABG pCO2 29.6 L POC ABG pO2 Sodium Potassium Chloride Carbon Dioxide BUN Creatinine Glucose POC Glucose 188 H 109 H Calcium Phosphorus Magnesium AST ALT Alkaline Phosphatase Troponin T C-Reactive Protein Total Protein Albumin HDL Cholesterol Miscellaneous Test Crossmatch 08/21/17 08/21/17 08/21/17 05:05 06:50 06:50 WBC 44.7 H* RBC 2.41 L Hgb 7.1 L Hct 22.1 L MCV RDW 18.3 H Plt Count Lymph % (Auto) [place] % (Auto) [place] # Seg Neutrophils % Seg Neuts % (Manual) 89.0 H Lymphocytes % (Manual) 0 L Monocytes % (Manual) Nucleated RBC % 1.0 H Seg Neutrophils # Seg Neutrophils # Man 39.8 H Lymphocytes # (Manual) 0.0 L Monocytes # (Manual) 1.3 H Eosinophils # (Manual) Basophils # (Manual) PT INR POC ABG pH POC ABG pCO2 POC ABG pO2 Sodium 135 L Potassium Chloride Carbon Dioxide BUN 39 H Creatinine 4.4 H Glucose 147 H POC Glucose 166 H Calcium 8.1 L Phosphorus Magnesium AST ALT < 5 L Alkaline Phosphatase 164 H Troponin T C-Reactive Protein Total Protein 4.7 L Albumin 1.4 L HDL Cholesterol Miscellaneous Test Crossmatch 08/21/17 08/21/17 08/21/17 08:00 12:21 17:02 WBC RBC Hgb Hct MCV RDW Plt Count Lymph % (Auto) [place] % (Auto) [place] # Seg Neutrophils % Seg Neuts % (Manual) Lymphocytes % (Manual) Monocytes % (Manual) Nucleated RBC % Seg Neutrophils # Seg Neutrophils # Man Lymphocytes # (Manual) Monocytes # (Manual) Eosinophils # (Manual) Basophils # (Manual) PT INR POC ABG pH POC ABG pCO2 POC ABG pO2 Sodium Potassium Chloride Carbon Dioxide BUN Creatinine Glucose POC Glucose 147 H 135 H Calcium Phosphorus Magnesium AST ALT Alkaline Phosphatase Troponin T C-Reactive Protein Total Protein Albumin HDL Cholesterol Miscellaneous Test Crossmatch See Detail 08/21/17 08/22/17 08/22/17 23:38 03:40 03:40 WBC 42.5 H* RBC 2.88 L Hgb 8.5 L Hct 26.3 L MCV RDW 17.9 H Plt Count Lymph % (Auto) [place] % (Auto) [place] # Seg Neutrophils % Seg Neuts % (Manual) Lymphocytes % (Manual) 5.0 L Monocytes % (Manual) Nucleated RBC % Seg Neutrophils # Seg Neutrophils # Man 19.6 H Lymphocytes # (Manual) Monocytes # (Manual) 2.6 H Eosinophils # (Manual) Basophils # (Manual) PT INR POC ABG pH POC ABG pCO2 POC ABG pO2 Sodium Potassium 3.3 L D Chloride Carbon Dioxide BUN 27 H Creatinine 2.9 H Glucose 144 H POC Glucose 251 H Calcium 8.0 L Phosphorus 2.40 L Magnesium AST ALT Alkaline Phosphatase Troponin T C-Reactive Protein Total Protein Albumin HDL Cholesterol Miscellaneous Test Crossmatch 08/22/17 08/22/17 08/22/17 06:37 08:50 11:25 WBC RBC Hgb Hct MCV RDW Plt Count Lymph % (Auto) [place] % (Auto) [place] # Seg Neutrophils % Seg Neuts % (Manual) Lymphocytes % (Manual) Monocytes % (Manual) Nucleated RBC % Seg Neutrophils # Seg Neutrophils # Man Lymphocytes # (Manual) Monocytes # (Manual) Eosinophils # (Manual) Basophils # (Manual) PT INR POC ABG pH POC ABG pCO2 POC ABG pO2 Sodium Potassium Chloride Carbon Dioxide BUN Creatinine Glucose POC Glucose 152 H 175 H Calcium Phosphorus Magnesium AST ALT Alkaline Phosphatase Troponin T C-Reactive Protein Total Protein Albumin HDL Cholesterol Miscellaneous Test Flexitest 1 H Crossmatch 08/22/17 08/22/17 08/22/17 16:25 17:56 23:03 WBC RBC Hgb Hct MCV RDW Plt Count Lymph % (Auto) [place] % (Auto) [place] # Seg Neutrophils % Seg Neuts % (Manual) Lymphocytes % (Manual) Monocytes % (Manual) Nucleated RBC % Seg Neutrophils # Seg Neutrophils # Man Lymphocytes # (Manual) Monocytes # (Manual) Eosinophils # (Manual) Basophils # (Manual) PT INR POC ABG pH POC ABG pCO2 POC ABG pO2 Sodium Potassium Chloride Carbon Dioxide BUN Creatinine Glucose POC Glucose 232 H 192 H Calcium Phosphorus Magnesium AST ALT Alkaline Phosphatase Troponin T C-Reactive Protein 30.70 H Total Protein Albumin HDL Cholesterol Miscellaneous Test Crossmatch 08/23/17 08/23/17 08/23/17 05:36 08:50 12:14 WBC RBC Hgb Hct MCV RDW Plt Count Lymph % (Auto) [place] % (Auto) [place] # Seg Neutrophils % Seg Neuts % (Manual) Lymphocytes % (Manual) Monocytes % (Manual) Nucleated RBC % Seg Neutrophils # Seg Neutrophils # Man Lymphocytes # (Manual) Monocytes # (Manual) Eosinophils # (Manual) Basophils # (Manual) PT INR POC ABG pH POC ABG pCO2 POC ABG pO2 Sodium Potassium Chloride 107.1 H Carbon Dioxide BUN 49 H Creatinine 3.3 H Glucose 172 H POC Glucose 206 H 238 H Calcium Phosphorus Magnesium 2.40 H AST ALT Alkaline Phosphatase Troponin T C-Reactive Protein Total Protein Albumin HDL Cholesterol Miscellaneous Test Crossmatch 08/23/17 08/23/17 08/24/17 17:21 23:13 04:00 WBC 34.2 H RBC 2.86 L Hgb 8.4 L Hct 25.9 L MCV RDW 17.9 H Plt Count Lymph % (Auto) [place] % (Auto) [place] # Seg Neutrophils % Seg Neuts % (Manual) 85.0 H Lymphocytes % (Manual) 0.5 L Monocytes % (Manual) Nucleated RBC % 1.0 H Seg Neutrophils # Seg Neutrophils # Man 29.1 H Lymphocytes # (Manual) 0.2 L Monocytes # (Manual) 2.4 H Eosinophils # (Manual) Basophils # (Manual) PT INR POC ABG pH POC ABG pCO2 POC ABG pO2 Sodium Potassium Chloride Carbon Dioxide BUN Creatinine Glucose POC Glucose 226 H 183 H Calcium Phosphorus Magnesium AST ALT Alkaline Phosphatase Troponin T C-Reactive Protein Total Protein Albumin HDL Cholesterol Miscellaneous Test Crossmatch 08/24/17 08/24/17 08/24/17 05:06 09:30 12:04 WBC RBC Hgb Hct MCV RDW Plt Count Lymph % (Auto) [place] % (Auto) [place] # Seg Neutrophils % Seg Neuts % (Manual) Lymphocytes % (Manual) Monocytes % (Manual) Nucleated RBC % Seg Neutrophils # Seg Neutrophils # Man Lymphocytes # (Manual) Monocytes # (Manual) Eosinophils # (Manual) Basophils # (Manual) PT INR POC ABG pH POC ABG pCO2 POC ABG pO2 Sodium Potassium Chloride Carbon Dioxide BUN 46 H Creatinine 2.5 H Glucose 176 H POC Glucose 201 H 181 H Calcium Phosphorus Magnesium AST ALT Alkaline Phosphatase Troponin T C-Reactive Protein Total Protein Albumin HDL Cholesterol Miscellaneous Test Crossmatch 08/24/17 08/24/17 08/25/17 18:04 23:05 05:05 WBC RBC Hgb Hct MCV RDW Plt Count Lymph % (Auto) [place] % (Auto) [place] # Seg Neutrophils % Seg Neuts % (Manual) Lymphocytes % (Manual) Monocytes % (Manual) Nucleated RBC % Seg Neutrophils # Seg Neutrophils # Man Lymphocytes # (Manual) Monocytes # (Manual) Eosinophils # (Manual) Basophils # (Manual) PT INR POC ABG pH POC ABG pCO2 POC ABG pO2 Sodium Potassium Chloride Carbon Dioxide BUN Creatinine Glucose POC Glucose 189 H 175 H 190 H Calcium Phosphorus Magnesium AST ALT Alkaline Phosphatase Troponin T C-Reactive Protein Total Protein Albumin HDL Cholesterol Miscellaneous Test Crossmatch 08/25/17 08/25/17 08/26/17 07:02 11:53 05:30 WBC 33.5 H RBC 2.47 L Hgb 7.3 L Hct 23.0 L MCV RDW 21.3 H Plt Count Lymph % (Auto) [place] % (Auto) [place] # Seg Neutrophils % Seg Neuts % (Manual) 92.0 H Lymphocytes % (Manual) 1.0 L Monocytes % (Manual) Nucleated RBC % Seg Neutrophils # Seg Neutrophils # Man 30.8 H Lymphocytes # (Manual) 0.3 L Monocytes # (Manual) Eosinophils # (Manual) Basophils # (Manual) PT INR POC ABG pH POC ABG pCO2 POC ABG pO2 Sodium Potassium Chloride Carbon Dioxide BUN 32 H Creatinine 5.0 H D Glucose 117 H POC Glucose 191 H Calcium 8.0 L Phosphorus Magnesium AST ALT Alkaline Phosphatase Troponin T C-Reactive Protein Total Protein Albumin HDL Cholesterol Miscellaneous Test Crossmatch 08/26/17 08/26/17 08/26/17 05:30 06:44 13:26 WBC RBC Hgb Hct MCV RDW Plt Count Lymph % (Auto) [place] % (Auto) [place] # Seg Neutrophils % Seg Neuts % (Manual) Lymphocytes % (Manual) Monocytes % (Manual) Nucleated RBC % Seg Neutrophils # Seg Neutrophils # Man Lymphocytes # (Manual) Monocytes # (Manual) Eosinophils # (Manual) Basophils # (Manual) PT INR POC ABG pH POC ABG pCO2 POC ABG pO2 Sodium Potassium 5.2 H Chloride Carbon Dioxide BUN 80 H Creatinine 3.4 H Glucose 193 H POC Glucose 232 H 207 H Calcium 8.3 L Phosphorus 6.80 H D Magnesium 2.60 H AST 135 H ALT Alkaline Phosphatase 211 H Troponin T C-Reactive Protein Total Protein 4.8 L Albumin 2.0 L HDL Cholesterol Miscellaneous Test Crossmatch 08/27/17 08/27/17 08/27/17 01:08 06:20 06:20 WBC 35.0 H RBC 2.75 L Hgb 8.4 L Hct 25.1 L MCV RDW 21.8 H Plt Count Lymph % (Auto) [place] % (Auto) [place] # Seg Neutrophils % Seg Neuts % (Manual) Lymphocytes % (Manual) 4.5 L Monocytes % (Manual) Nucleated RBC % Seg Neutrophils # Seg Neutrophils # Man 31.9 H Lymphocytes # (Manual) Monocytes # (Manual) 1.2 H Eosinophils # (Manual) Basophils # (Manual) PT INR POC ABG pH POC ABG pCO2 POC ABG pO2 Sodium Potassium Chloride Carbon Dioxide BUN 61 H Creatinine 2.6 H Glucose 184 H POC Glucose 146 H Calcium Phosphorus 4.90 H D Magnesium AST ALT Alkaline Phosphatase Troponin T C-Reactive Protein Total Protein Albumin HDL Cholesterol Miscellaneous Test Crossmatch 08/27/17 08/27/17 08/27/17 07:01 09:17 12:52 WBC RBC Hgb Hct MCV RDW Plt Count Lymph % (Auto) [place] % (Auto) [place] # Seg Neutrophils % Seg Neuts % (Manual) Lymphocytes % (Manual) Monocytes % (Manual) Nucleated RBC % Seg Neutrophils # Seg Neutrophils # Man Lymphocytes # (Manual) Monocytes # (Manual) Eosinophils # (Manual) Basophils # (Manual) PT INR POC ABG pH POC ABG pCO2 POC ABG pO2 Sodium Potassium Chloride Carbon Dioxide BUN Creatinine Glucose POC Glucose 165 H 198 H 218 H Calcium Phosphorus Magnesium AST ALT Alkaline Phosphatase Troponin T C-Reactive Protein Total Protein Albumin HDL Cholesterol Miscellaneous Test Crossmatch 08/27/17 08/28/17 08/28/17 17:27 02:13 06:46 WBC RBC Hgb Hct MCV RDW Plt Count Lymph % (Auto) [place] % (Auto) [place] # Seg Neutrophils % Seg Neuts % (Manual) Lymphocytes % (Manual) Monocytes % (Manual) Nucleated RBC % Seg Neutrophils # Seg Neutrophils # Man Lymphocytes # (Manual) Monocytes # (Manual) Eosinophils # (Manual) Basophils # (Manual) PT INR POC ABG pH POC ABG pCO2 POC ABG pO2 Sodium Potassium Chloride Carbon Dioxide BUN Creatinine Glucose POC Glucose 151 H 155 H 230 H Calcium Phosphorus Magnesium AST ALT Alkaline Phosphatase Troponin T C-Reactive Protein Total Protein Albumin HDL Cholesterol Miscellaneous Test Crossmatch 08/28/17 08/28/17 08/28/17 06:53 06:53 08:19 WBC 31.1 H RBC 2.26 L Hgb 6.8 L Hct 20.9 L MCV RDW 21.7 H Plt Count Lymph % (Auto) [place] % (Auto) [place] # Seg Neutrophils % Seg Neuts % (Manual) 83.0 H Lymphocytes % (Manual) 4.0 L Monocytes % (Manual) Nucleated RBC % Seg Neutrophils # Seg Neutrophils # Man 25.8 H Lymphocytes # (Manual) Monocytes # (Manual) Eosinophils # (Manual) Basophils # (Manual) PT INR POC ABG pH POC ABG pCO2 POC ABG pO2 Sodium Potassium Chloride Carbon Dioxide BUN 81 H Creatinine 3.4 H Glucose 218 H POC Glucose 239 H Calcium Phosphorus 4.90 H Magnesium AST ALT Alkaline Phosphatase Troponin T C-Reactive Protein Total Protein Albumin HDL Cholesterol Miscellaneous Test Crossmatch 08/28/17 08/28/17 08/28/17 11:56 13:05 13:29 WBC RBC Hgb Hct MCV RDW Plt Count Lymph % (Auto) [place] % (Auto) [place] # Seg Neutrophils % Seg Neuts % (Manual) Lymphocytes % (Manual) Monocytes % (Manual) Nucleated RBC % Seg Neutrophils # Seg Neutrophils # Man Lymphocytes # (Manual) Monocytes # (Manual) Eosinophils # (Manual) Basophils # (Manual) PT 16.7 H INR 1.29 H POC ABG pH POC ABG pCO2 POC ABG pO2 338 H Sodium Potassium Chloride Carbon Dioxide BUN Creatinine Glucose POC Glucose Calcium Phosphorus Magnesium AST ALT Alkaline Phosphatase Troponin T C-Reactive Protein Total Protein Albumin HDL Cholesterol Miscellaneous Test Crossmatch See Detail 08/28/17 08/28/17 08/29/17 16:22 19:20 04:24 WBC RBC Hgb Hct MCV RDW Plt Count Lymph % (Auto) [place] % (Auto) [place] # Seg Neutrophils % Seg Neuts % (Manual) Lymphocytes % (Manual) Monocytes % (Manual) Nucleated RBC % Seg Neutrophils # Seg Neutrophils # Man Lymphocytes # (Manual) Monocytes # (Manual) Eosinophils # (Manual) Basophils # (Manual) PT INR POC ABG pH 7.469 H POC ABG pCO2 POC ABG pO2 240 H Sodium Potassium Chloride Carbon Dioxide BUN Creatinine Glucose POC Glucose 209 H 195 H Calcium Phosphorus Magnesium AST ALT Alkaline Phosphatase Troponin T C-Reactive Protein Total Protein Albumin HDL Cholesterol Miscellaneous Test Crossmatch 08/29/17 08/29/17 08/29/17 04:30 04:30 12:07 WBC 44.9 H* RBC Hgb Hct MCV RDW 23.1 H Plt Count Lymph % (Auto) [place] % (Auto) [place] # Seg Neutrophils % Seg Neuts % (Manual) 38.0 L Lymphocytes % (Manual) 10.0 L Monocytes % (Manual) 10.0 H Nucleated RBC % 6.0 H Seg Neutrophils # Seg Neutrophils # Man 17.1 H Lymphocytes # (Manual) Monocytes # (Manual) 4.5 H Eosinophils # (Manual) Basophils # (Manual) PT INR POC ABG pH POC ABG pCO2 POC ABG pO2 Sodium Potassium Chloride Carbon Dioxide BUN 61 H Creatinine 2.4 H Glucose 226 H POC Glucose 200 H Calcium Phosphorus Magnesium AST ALT Alkaline Phosphatase Troponin T C-Reactive Protein Total Protein Albumin HDL Cholesterol Miscellaneous Test Crossmatch 08/29/17 08/29/17 08/30/17 12:30 17:23 00:10 WBC RBC Hgb Hct MCV RDW Plt Count Lymph % (Auto) [place] % (Auto) [place] # Seg Neutrophils % Seg Neuts % (Manual) Lymphocytes % (Manual) Monocytes % (Manual) Nucleated RBC % Seg Neutrophils # Seg Neutrophils # Man Lymphocytes # (Manual) Monocytes # (Manual) Eosinophils # (Manual) Basophils # (Manual) PT INR POC ABG pH POC ABG pCO2 POC ABG pO2 Sodium Potassium Chloride Carbon Dioxide BUN Creatinine Glucose POC Glucose 270 H 245 H Calcium Phosphorus Magnesium AST ALT Alkaline Phosphatase Troponin T C-Reactive Protein 19.10 H Total Protein Albumin HDL Cholesterol Miscellaneous Test Crossmatch 08/30/17 08/30/17 08/30/17 01:30 03:31 05:20 WBC 40.9 H* RBC 3.64 L Hgb Hct MCV RDW 24.3 H Plt Count Lymph % (Auto) [place] % (Auto) [place] # Seg Neutrophils % Seg Neuts % (Manual) 80.0 H Lymphocytes % (Manual) 3.0 L Monocytes % (Manual) Nucleated RBC % 1.0 H Seg Neutrophils # Seg Neutrophils # Man 32.7 H Lymphocytes # (Manual) Monocytes # (Manual) Eosinophils # (Manual) Basophils # (Manual) PT INR POC ABG pH 7.168 L 7.335 L POC ABG pCO2 72.8 H POC ABG pO2 257 H 117 H Sodium Potassium Chloride Carbon Dioxide BUN Creatinine Glucose POC Glucose Calcium Phosphorus Magnesium AST ALT Alkaline Phosphatase Troponin T C-Reactive Protein Total Protein Albumin HDL Cholesterol Miscellaneous Test Crossmatch 08/30/17 08/30/17 05:20 05:20 WBC RBC Hgb Hct MCV RDW Plt Count Lymph % (Auto) [place] % (Auto) [place] # Seg Neutrophils % Seg Neuts % (Manual) Lymphocytes % (Manual) Monocytes % (Manual) Nucleated RBC % Seg Neutrophils # Seg Neutrophils # Man Lymphocytes # (Manual) Monocytes # (Manual) Eosinophils # (Manual) Basophils # (Manual) PT INR POC ABG pH POC ABG pCO2 POC ABG pO2 Sodium Potassium Chloride Carbon Dioxide BUN 83 H Creatinine 2.9 H Glucose 334 H POC Glucose 309 H Calcium Phosphorus Magnesium AST ALT Alkaline Phosphatase Troponin T C-Reactive Protein Total Protein Albumin HDL Cholesterol Miscellaneous Test Crossmatch Chest x-ray: report reviewed, image reviewed (ET tube in good position (new film ) without acute process)
[2017-08-30] MEDS: LEVEMIR SUB-Q SCH (14:26)
[2017-08-30] MEDS: ZYVOX 600MG/300ML 600 MG/300 ML BAG IV SCH ×2 (15:46→21:52)
[2017-08-30] MEDS: HEPARIN IV PRN (18:59)
[2017-08-30] MEDS ORDERED: NACL 0.9 (PRIMING MACHINE ONLY DIALYSIS) MC ONE (19:28)
[2017-08-30] MEDS: DILAUDID IV PRN (19:54)
[2017-08-30] MEDS ORDERED: TPN ADULT 1,800 ML IV SCH (20:00)
[2017-08-30] MEDS ORDERED: INTRALIPID 20% 250 ML IV SCH (20:00)
--- NOTE | 2017-08-30 21:44 | Progress Note ---
Assessment and Plan - Patient Problems (1) Leukocytosis Current Visit: Yes Status: Acute Qualifiers: Leukocytosis type: L Plan to address problem: See notes above. make sure that PD access is clean also. see notes. Probably infection from the infected PD catheter. improving. back up again. (2) Anemia Current Visit: Yes Status: Acute Qualifiers: Anemia type: A Iron deficiency anemia type: I Vitamin B12 deficiency anemia type: V Folate deficiency anemia type: F Bone marrow failure anemia type: B Hemolytic anemia type: H Other causes of anemia: O Chronic kidney disease stage: C Plan to address problem: see notes , monitor labs,. see notes above. continue to monitor labs with you. blood transfusion. S/P replacement transfusion. fair. Subjective Date of service: 08/30/17 Principal diagnosis: /anemia, poor oral intake. Interval history: Patient seen today/examined, labs reviewed, case d/w she, and family.complaints of abdominal pain. Patient resting in bed in the ICU, post vascular procedure. labs reviewed, Reactive thrombocytosis, anemia of CD, leukocytosis from infection vs inflamatory process. Patient seen/examined, in bed in the ICU, on the vent post surgery.Labs reviewed , notes reviewed. will continue to monitor labs/patient with you. Replacement transfusion, if /when indicated. patient seen/examined, SBP75, on pressors., lethargic, on the vent, labs reviewed, wbc 39,000 Patient seen/examined, case reviewed, d/w her sister at the bed side. Patient seen/examined, labs reviewed, notes reviewed. severe septic shock from infected PD catheter The high wbc is all infection related. H?H low, and may get replacement transfusion with the next HD. Prognosis remain quite poor. Patient seen/examined, extubated, now on V Mask. labs reviewed. patient seen/examined, resting in bed, still some what lethargic . labs reviewed. Patient seen/examined, resting in bed., some difficulty with breathing./ lethargic. patient seen/examined, resting in bed, looked much better labs reviewed, and fair over all. Patient seen/examined, resting in bed, labs reviewed, case d/w her. Patient seen/examined, resting in bed on BIPAP., labs reviewed. patient seen/examined, resting in bed, on Bipap.labs reviewed, fairly stable. Patient seen today, resting in bed, labs reviewed, H/H low, and transfusion already ordered. Patient seen/examined, resting in bed, transfered back to the unit, due to resp failure. She is now on venting mask. had blood replacement done. Patient seen/examined in the ICU.labs reviewed. patient intubated this am. Objective - Constitutional Vitals: Vital Signs - 12hr 08/30/17 08/30/17 08/30/17 09:45 09:54 10:01 Temperature Pulse Rate 96 H 103 H Pulse Rate [ 114 H Anterior Bilateral Throughout] Respiratory 19 20 Rate Respiratory Rate [Anterior Bilateral Throughout] Blood Pressure 130/79 127/76 O2 Sat by Pulse 97 99 Oximetry O2 Sat by Pulse Oximetry [ Anterior Bilateral Throughout] 08/30/17 08/30/17 08/30/17 10:15 10:31 10:45 Temperature Pulse Rate 104 H 98 H 98 H Pulse Rate [ Anterior Bilateral Throughout] Respiratory 18 19 14 Rate Respiratory Rate [Anterior Bilateral Throughout] Blood Pressure 127/76 147/79 152/78 O2 Sat by Pulse 98 100 Oximetry O2 Sat by Pulse Oximetry [ Anterior Bilateral Throughout] 08/30/17 08/30/17 08/30/17 11:01 11:15 11:30 Temperature Pulse Rate 108 H 106 H 102 H Pulse Rate [ Anterior Bilateral Throughout] Respiratory 20 20 16 Rate Respiratory Rate [Anterior Bilateral Throughout] Blood Pressure 115/53 115/53 O2 Sat by Pulse 100 Oximetry O2 Sat by Pulse Oximetry [ Anterior Bilateral Throughout] 08/30/17 08/30/17 08/30/17 11:46 12:00 12:15 Temperature 99.1 F Pulse Rate 91 H 92 H 91 H Pulse Rate [ Anterior Bilateral Throughout] Respiratory 20 20 20 Rate Respiratory Rate [Anterior Bilateral Throughout] Blood Pressure 109/68 107/64 114/64 O2 Sat by Pulse 100 100 100 Oximetry O2 Sat by Pulse Oximetry [ Anterior Bilateral Throughout] 08/30/17 08/30/17 08/30/17 12:30 12:45 13:00 Temperature Pulse Rate 90 92 H 88 Pulse Rate [ Anterior Bilateral Throughout] Respiratory 20 20 20 Rate Respiratory Rate [Anterior Bilateral Throughout] Blood Pressure 106/43 104/46 99/54 O2 Sat by Pulse 100 100 99 Oximetry O2 Sat by Pulse Oximetry [ Anterior Bilateral Throughout] 08/30/17 08/30/17 08/30/17 13:15 13:26 13:30 Temperature Pulse Rate 89 87 88 Pulse Rate [ 89 Anterior Bilateral Throughout] Respiratory 20 19 Rate Respiratory 20 Rate [Anterior Bilateral Throughout] Blood Pressure 94/49 94/49 115/66 O2 Sat by Pulse 100 99 Oximetry O2 Sat by Pulse Oximetry [ Anterior Bilateral Throughout] 08/30/17 08/30/17 08/30/17 13:45 13:46 14:00 Temperature Pulse Rate 85 86 Pulse Rate [ 85 Anterior Bilateral Throughout] Respiratory 20 20 Rate Respiratory 20 Rate [Anterior Bilateral Throughout] Blood Pressure 116/59 101/55 O2 Sat by Pulse 93 Oximetry O2 Sat by Pulse Oximetry [ Anterior Bilateral Throughout] 08/30/17 08/30/17 08/30/17 14:16 14:30 14:45 Temperature Pulse Rate 87 89 94 H Pulse Rate [ Anterior Bilateral Throughout] Respiratory 20 20 18 Rate Respiratory Rate [Anterior Bilateral Throughout] Blood Pressure 114/38 121/52 120/65 O2 Sat by Pulse 92 93 100 Oximetry O2 Sat by Pulse Oximetry [ Anterior Bilateral Throughout] 08/30/17 08/30/17 08/30/17 15:00 15:15 15:30 Temperature 97.6 F Pulse Rate 90 92 H 92 H Pulse Rate [ Anterior Bilateral Throughout] Respiratory 20 19 20 Rate Respiratory Rate [Anterior Bilateral Throughout] Blood Pressure 118/57 121/59 78/43 O2 Sat by Pulse 100 100 100 Oximetry O2 Sat by Pulse 100 Oximetry [ Anterior Bilateral Throughout] 08/30/17 08/30/17 08/30/17 15:45 16:00 16:15 Temperature 97.6 F Pulse Rate 85 99 H 91 H Pulse Rate [ Anterior Bilateral Throughout] Respiratory 20 20 19 Rate Respiratory Rate [Anterior Bilateral Throughout] Blood Pressure 113/65 121/60 128/64 O2 Sat by Pulse 99 100 100 Oximetry O2 Sat by Pulse Oximetry [ Anterior Bilateral Throughout] 08/30/17 08/30/17 08/30/17 16:30 16:45 16:46 Temperature Pulse Rate 80 89 90 Pulse Rate [ Anterior Bilateral Throughout] Respiratory 19 16 Rate Respiratory Rate [Anterior Bilateral Throughout] Blood Pressure 129/59 94/52 94/52 O2 Sat by Pulse 99 100 Oximetry O2 Sat by Pulse Oximetry [ Anterior Bilateral Throughout] 08/30/17 08/30/17 08/30/17 17:00 17:06 17:15 Temperature Pulse Rate 94 H 92 H 92 H Pulse Rate [ Anterior Bilateral Throughout] Respiratory 20 Rate Respiratory Rate [Anterior Bilateral Throughout] Blood Pressure 94/52 94/52 130/59 O2 Sat by Pulse 100 100 Oximetry O2 Sat by Pulse Oximetry [ Anterior Bilateral Throughout] 08/30/17 08/30/17 08/30/17 17:16 17:30 17:45 Temperature Pulse Rate 95 H 91 H 91 H Pulse Rate [ Anterior Bilateral Throughout] Respiratory 16 17 Rate Respiratory Rate [Anterior Bilateral Throughout] Blood Pressure 130/59 130/59 119/64 O2 Sat by Pulse 90 99 Oximetry O2 Sat by Pulse Oximetry [ Anterior Bilateral Throughout] 08/30/17 08/30/17 08/30/17 17:46 18:00 18:15 Temperature Pulse Rate 76 92 H 93 H Pulse Rate [ Anterior Bilateral Throughout] Respiratory 19 20 Rate Respiratory Rate [Anterior Bilateral Throughout] Blood Pressure 119/64 112/70 112/68 O2 Sat by Pulse 99 100 Oximetry O2 Sat by Pulse Oximetry [ Anterior Bilateral Throughout] 08/30/17 08/30/17 08/30/17 18:16 18:30 18:32 Temperature 97.6 F Pulse Rate 85 86 90 Pulse Rate [ Anterior Bilateral Throughout] Respiratory 15 20 20 Rate Respiratory Rate [Anterior Bilateral Throughout] Blood Pressure 112/68 132/46 132/46 O2 Sat by Pulse 100 100 Oximetry O2 Sat by Pulse Oximetry [ Anterior Bilateral Throughout] 08/30/17 08/30/17 08/30/17 18:45 19:00 19:15 Temperature Pulse Rate 100 H 94 H 92 H Pulse Rate [ Anterior Bilateral Throughout] Respiratory 19 20 20 Rate Respiratory Rate [Anterior Bilateral Throughout] Blood Pressure 127/73 139/71 115/72 O2 Sat by Pulse 99 94 94 Oximetry O2 Sat by Pulse Oximetry [ Anterior Bilateral Throughout] 08/30/17 08/30/17 08/30/17 19:43 20:18 20:30 Temperature 98.6 F Pulse Rate 95 H Pulse Rate [ 95 H 95 H Anterior Bilateral Throughout] Respiratory Rate Respiratory 20 21 Rate [Anterior Bilateral Throughout] Blood Pressure 151/73 O2 Sat by Pulse 100 Oximetry O2 Sat by Pulse Oximetry [ Anterior Bilateral Throughout] General appearance: Present: severe distress - EENT Eyes: PERRL Ears: bilateral: normal - Neck Neck: supple - Respiratory Respiratory: bilateral: diminished (on the vent.) - Breasts Breasts: deferred - Cardiovascular Rhythm: regular Heart Sounds: Present: S1 & S2. Absent: gallop, rub Extremities: pulses intact, No edema, normal color, Full ROM - Gastrointestinal General gastrointestinal: Present: soft, non-tender, non-distended, normal bowel sounds Rectal Exam: deferred - Genitourinary Female genitourinary: deferred - Integumentary Integumentary: clear, warm, dry - Labs CBC & Chem 7: 08/30/17 05:20 08/30/17 05:20 Labs: Abnormal lab results 08/29/17 08/29/17 08/29/17 Range/Units 12:07 12:30 17:23 WBC (4.5-11.0) K/mm3 RBC (3.65-5.03) M/mm3 RDW (13.2-15.2) % Seg Neuts % (Manual) (40.0-70.0) % Lymphocytes % (Manual) (13.4-35.0) % Nucleated RBC % (0.0-0.9) % Seg Neutrophils # Man (1.8-7.7) K/mm3 POC ABG pH (7.35-7.45) POC ABG pCO2 (35-45) POC ABG pO2 (80-105) BUN (7-17) mg/dL Creatinine (0.7-1.2) mg/dL Glucose (65-100) mg/dL POC Glucose 200 H 270 H (70-105) Miscellaneous Test Flexitest 1 H 08/30/17 08/30/17 08/30/17 Range/Units 00:10 01:30 03:31 WBC (4.5-11.0) K/mm3 RBC (3.65-5.03) M/mm3 RDW (13.2-15.2) % Seg Neuts % (Manual) (40.0-70.0) % Lymphocytes % (Manual) (13.4-35.0) % Nucleated RBC % (0.0-0.9) % Seg Neutrophils # Man (1.8-7.7) K/mm3 POC ABG pH 7.168 L 7.335 L (7.35-7.45) POC ABG pCO2 72.8 H (35-45) POC ABG pO2 257 H 117 H (80-105) BUN (7-17) mg/dL Creatinine (0.7-1.2) mg/dL Glucose (65-100) mg/dL POC Glucose 245 H (70-105) Miscellaneous Test 08/30/17 08/30/17 08/30/17 Range/Units 05:20 05:20 05:20 WBC 40.9 H* (4.5-11.0) K/mm3 RBC 3.64 L (3.65-5.03) M/mm3 RDW 24.3 H (13.2-15.2) % Seg Neuts % (Manual) 80.0 H (40.0-70.0) % Lymphocytes % (Manual) 3.0 L (13.4-35.0) % Nucleated RBC % 1.0 H (0.0-0.9) % Seg Neutrophils # Man 32.7 H (1.8-7.7) K/mm3 POC ABG pH (7.35-7.45) POC ABG pCO2 (35-45) POC ABG pO2 (80-105) BUN 83 H (7-17) mg/dL Creatinine 2.9 H (0.7-1.2) mg/dL Glucose 334 H (65-100) mg/dL POC Glucose 309 H (70-105) Miscellaneous Test
[2017-08-31] MEDS: DILAUDID IV PRN (01:04)
[2017-08-31] MEDS: DUONEB *Not for PRN Use IH SCH ×4 (02:54→20:05)
[2017-08-31] MEDS: LEVOPHED 8 MG in NACL 0.9% 250ML 242 ML IV SCH ×2 (05:59→20:30)
[2017-08-31] MEDS: fentaNYL DRIP Premix 2,000 MCG/100 ML BAG IV SCH ×3 (06:03→20:43)
[2017-08-31 06:58] LABS: Hematocrit 24.7 % (30.3-42.9); Hemoglobin 8.2 gm/dl (10.1-14.3); Mean Corpuscular HGB Conc 33 % (30-34); Mean Corpuscular Hemoglobin 28 pg (28-32); Mean Corpuscular Volume 86 fl (79-97); Platelet Count 274 K/mm3 (140-440); Red Blood Count 2.89 M/mm3 (3.65-5.03)
[2017-08-31 07:00] LABS: Red Cell Distribution Width 24.4 % (13.2-15.2); White Blood Count 29.9 K/mm3 (4.5-11.0)
[2017-08-31 07:37] LABS: Calcium 8.5 mg/dL (8.4-10.2); Chloride 102.4 mmol/L (98-107); Magnesium 1.6 mg/dL (1.7-2.3); Phosphorous 2.1 mg/dL (2.5-4.5); Potassium 3.9 mmol/L (3.6-5.0)
[2017-08-31 08:33] LABS: Anisocytosis 2+; Basophils % (Manual) 0 % (0.0-1.8); Blastocytes % (Manual) 0 %; Burr Cells Few; Eosinophils % (Manual) 0 % (0.0-4.3); Poikilocytosis 1+
[2017-08-31 08:34] LABS: Diff Status Complete; Hypochromasia 1+; Polychromasia 1+; Schistocytes Rare; Smudge Cells Rare; Target Cells Rare
--- NOTE | 2017-08-31 09:09 | Progress Note ---
Assessment and Plan - Patient Problems (1) ESRD (end stage renal disease) on dialysis Current Visit: Yes Status: Acute Plan to address problem: Continue HD, MWF schedule. Isolated UF today to remove 3 Lts as tolerated. Patient is on TPN. (2) Hyperkalemia Current Visit: Yes Status: Acute Plan to address problem: K level is better. (3) Anemia Current Visit: No Status: Chronic Qualifiers: Anemia type: due to chronic kidney disease Iron deficiency anemia type: I Vitamin B12 deficiency anemia type: V Folate deficiency anemia type: F Bone marrow failure anemia type: B Hemolytic anemia type: H Other causes of anemia: O Chronic kidney disease stage: on chronic dialysis Qualified Code(s ): N18.6 - End stage renal disease; D63.1 - Anemia in chronic kidney disease; Z99.2 - Dependence on renal dialysis Plan to address problem: Epogen. S/p PRBC. (4) Hypotension Current Visit: Yes Status: Chronic Qualifiers: Hypotension type: H Trimester: T Plan to address problem: On Levophed. (5) Leukocytosis Current Visit: Yes Status: Acute Qualifiers: Leukocytosis type: unspecified Qualified Code(s): D72.829 - Elevated white blood cell count, unspecified (6) Acute respiratory failure with hypoxemia Current Visit: Yes Status: Acute Plan to address problem: On the vent. (7) Sepsis Current Visit: Yes Status: Acute Qualifiers: Sepsis type: S Subjective Date of service: 08/31/17 Principal diagnosis: /anemia, poor oral intake. Interval history: Patient was seen and examined at the bedside. Patient is intubated. Objective - Vital Signs Vital signs: Vital Signs - 12hr 08/30/17 08/30/17 08/30/17 21:30 22:00 22:30 Temperature Pulse Rate 93 H 87 89 Pulse Rate [ Anterior Bilateral Throughout] Pulse Rate [ From Monitor] Respiratory 20 20 20 Rate Respiratory Rate [Anterior Bilateral Throughout] Respiratory Rate [ Generalized] Blood Pressure 142/78 129/63 151/79 O2 Sat by Pulse 100 100 100 Oximetry 08/30/17 08/30/17 08/30/17 23:00 23:30 23:51 Temperature 99.5 F Pulse Rate 88 90 Pulse Rate [ Anterior Bilateral Throughout] Pulse Rate [ From Monitor] Respiratory 19 20 Rate Respiratory Rate [Anterior Bilateral Throughout] Respiratory Rate [ Generalized] Blood Pressure 129/65 124/66 O2 Sat by Pulse 99 100 Oximetry 08/31/17 08/31/17 08/31/17 00:00 00:30 00:40 Temperature Pulse Rate 85 87 85 Pulse Rate [ Anterior Bilateral Throughout] Pulse Rate [ From Monitor] Respiratory 20 19 Rate Respiratory Rate [Anterior Bilateral Throughout] Respiratory Rate [ Generalized] Blood Pressure 124/63 126/69 126/69 O2 Sat by Pulse 87 100 100 Oximetry 08/31/17 08/31/17 08/31/17 01:00 01:04 01:30 Temperature Pulse Rate 82 85 Pulse Rate [ Anterior Bilateral Throughout] Pulse Rate [ From Monitor] Respiratory 20 22 21 Rate Respiratory Rate [Anterior Bilateral Throughout] Respiratory Rate [ Generalized] Blood Pressure 114/55 128/59 O2 Sat by Pulse 96 87 Oximetry 08/31/17 08/31/17 08/31/17 02:00 02:30 02:41 Temperature Pulse Rate 83 85 Pulse Rate [ 82 Anterior Bilateral Throughout] Pulse Rate [ From Monitor] Respiratory 20 16 Rate Respiratory 20 Rate [Anterior Bilateral Throughout] Respiratory Rate [ Generalized] Blood Pressure 120/51 121/53 O2 Sat by Pulse 100 100 Oximetry 08/31/17 08/31/17 08/31/17 02:55 03:00 03:30 Temperature Pulse Rate 84 89 Pulse Rate [ 85 Anterior Bilateral Throughout] Pulse Rate [ From Monitor] Respiratory 21 20 Rate Respiratory 20 Rate [Anterior Bilateral Throughout] Respiratory Rate [ Generalized] Blood Pressure 114/54 117/52 O2 Sat by Pulse 100 100 Oximetry 08/31/17 08/31/17 08/31/17 03:59 04:00 04:30 Temperature 98.8 F Pulse Rate 88 92 H Pulse Rate [ Anterior Bilateral Throughout] Pulse Rate [ From Monitor] Respiratory 20 21 Rate Respiratory Rate [Anterior Bilateral Throughout] Respiratory 24 Rate [ Generalized] Blood Pressure 100/47 100/47 O2 Sat by Pulse 100 88 Oximetry 08/31/17 08/31/17 08/31/17 05:00 05:30 06:00 Temperature Pulse Rate 92 H 87 84 Pulse Rate [ Anterior Bilateral Throughout] Pulse Rate [ From Monitor] Respiratory 20 19 19 Rate Respiratory Rate [Anterior Bilateral Throughout] Respiratory Rate [ Generalized] Blood Pressure 100/47 90/42 95/44 O2 Sat by Pulse 100 100 100 Oximetry 08/31/17 08/31/17 08/31/17 06:30 07:00 07:30 Temperature Pulse Rate 88 86 85 Pulse Rate [ Anterior Bilateral Throughout] Pulse Rate [ From Monitor] Respiratory 20 20 20 Rate Respiratory Rate [Anterior Bilateral Throughout] Respiratory Rate [ Generalized] Blood Pressure 104/55 108/45 92/45 O2 Sat by Pulse 100 100 100 Oximetry 08/31/17 08:00 Temperature 98.2 F Pulse Rate 86 Pulse Rate [ Anterior Bilateral Throughout] Pulse Rate [ 86 From Monitor] Respiratory 20 Rate Respiratory Rate [Anterior Bilateral Throughout] Respiratory Rate [ Generalized] Blood Pressure 104/51 O2 Sat by Pulse 100 Oximetry - General Appearance General appearance: well-developed, appears stated age, obese, sedated on ventilator (FiO2 40%), intubated, other (right groin hemodialysis catheter) EENT: ATNC Neck: supple Respiratory: Present: Other (coarse breath sounds) Cardiology: regular, S1S2, no murmurs Gastrointestinal: normoactive bowel sounds, obese, other (PEG tube noted) Integumentary: no rash Neurologic: other (sedated) Musculoskeletal: other (1 to 2+ edema of all 4 extremities) - Lab 08/31/17 05:30 08/31/17 05:30 Most recent lab results Calcium 8.5 mg/dL (8.4-10.2) 08/31/17 05:30 Phosphorus 2.10 mg/dL (2.5-4.5) L D 08/31/17 05:30 Magnesium 1.60 mg/dL (1.7-2.3) L 08/31/17 05:30
[2017-08-31] MEDS: PROTONIX IV SCH ×2 (09:18→22:20)
[2017-08-31] MEDS ORDERED: NACL 0.9% 100 ML IV PRN (09:18)
[2017-08-31] MEDS: ZYVOX 600MG/300ML 600 MG/300 ML BAG IV SCH ×2 (09:19→22:20)
[2017-08-31] MEDS: MERREM 1,000 MG in NACL 0.9% 100 ML IV SCH (09:19)
[2017-08-31] MEDS: LEVEMIR SUB-Q SCH (09:19)
[2017-08-31] MEDS: MYCAMINE 100 MG in NACL 0.9% 100 ML IV SCH (10:27)
[2017-08-31] MEDS ORDERED: NACL 0.9% 500 ML 500 ML IV ONE (11:19)
--- NOTE | 2017-08-31 11:46 | Progress Note ---
Assessment and Plan Acute bacterial peritonitis/abscess s/p PD cath removal and exlap SBO Acute respiratory failure, hypoxia Morbid obesity, excess cals. ESRD Sepsis, ongoing Leukemoid reaction due to high-dose steroids versus worsening infection LGIB with acute blood loss anemia Rec: stress-dose steroids until off pressors Continue ventilator support Monitor H/H and for recurrent bleeding Wean off Levophed as tolerated Surgery f/u ABX as per ID Prognosis is guarded critical care time was 31 minutes of [id number] evaluation and coordination of care Subjective Date of service: 08/31/17 Principal diagnosis: Objective Vital Signs - 12hr 08/30/17 08/31/17 08/31/17 23:51 00:00 00:30 Temperature 99.5 F Pulse Rate 85 87 Pulse Rate [ Anterior Bilateral Throughout] Pulse Rate [ From Monitor] Respiratory 20 19 Rate Respiratory Rate [Anterior Bilateral Throughout] Respiratory Rate [ Generalized] Blood Pressure 124/63 126/69 O2 Sat by Pulse 87 100 Oximetry 08/31/17 08/31/17 08/31/17 00:40 01:00 01:04 Temperature Pulse Rate 85 82 Pulse Rate [ Anterior Bilateral Throughout] Pulse Rate [ From Monitor] Respiratory 20 22 Rate Respiratory Rate [Anterior Bilateral Throughout] Respiratory Rate [ Generalized] Blood Pressure 126/69 114/55 O2 Sat by Pulse 100 96 Oximetry 08/31/17 08/31/17 08/31/17 01:30 02:00 02:30 Temperature Pulse Rate 85 83 85 Pulse Rate [ Anterior Bilateral Throughout] Pulse Rate [ From Monitor] Respiratory 21 20 16 Rate Respiratory Rate [Anterior Bilateral Throughout] Respiratory Rate [ Generalized] Blood Pressure 128/59 120/51 121/53 O2 Sat by Pulse 87 100 100 Oximetry 08/31/17 08/31/17 08/31/17 02:41 02:55 03:00 Temperature Pulse Rate 84 Pulse Rate [ 82 85 Anterior Bilateral Throughout] Pulse Rate [ From Monitor] Respiratory 21 Rate Respiratory 20 20 Rate [Anterior Bilateral Throughout] Respiratory Rate [ Generalized] Blood Pressure 114/54 O2 Sat by Pulse 100 Oximetry 08/31/17 08/31/17 08/31/17 03:30 03:59 04:00 Temperature 98.8 F Pulse Rate 89 88 Pulse Rate [ Anterior Bilateral Throughout] Pulse Rate [ From Monitor] Respiratory 20 20 Rate Respiratory Rate [Anterior Bilateral Throughout] Respiratory 24 Rate [ Generalized] Blood Pressure 117/52 100/47 O2 Sat by Pulse 100 100 Oximetry 08/31/17 08/31/17 08/31/17 04:30 05:00 05:30 Temperature Pulse Rate 92 H 92 H 87 Pulse Rate [ Anterior Bilateral Throughout] Pulse Rate [ From Monitor] Respiratory 21 20 19 Rate Respiratory Rate [Anterior Bilateral Throughout] Respiratory Rate [ Generalized] Blood Pressure 100/47 100/47 90/42 O2 Sat by Pulse 88 100 100 Oximetry 08/31/17 08/31/17 08/31/17 06:00 06:30 07:00 Temperature Pulse Rate 84 88 86 Pulse Rate [ Anterior Bilateral Throughout] Pulse Rate [ From Monitor] Respiratory 19 20 20 Rate Respiratory Rate [Anterior Bilateral Throughout] Respiratory Rate [ Generalized] Blood Pressure 95/44 104/55 108/45 O2 Sat by Pulse 100 100 100 Oximetry 08/31/17 08/31/17 08/31/17 07:30 08:00 08:30 Temperature 98.2 F Pulse Rate 85 86 85 Pulse Rate [ Anterior Bilateral Throughout] Pulse Rate [ 86 From Monitor] Respiratory 20 20 20 Rate Respiratory Rate [Anterior Bilateral Throughout] Respiratory Rate [ Generalized] Blood Pressure 92/45 104/51 111/52 O2 Sat by Pulse 100 100 100 Oximetry 08/31/17 08/31/17 08/31/17 09:00 09:27 09:30 Temperature Pulse Rate 85 80 86 Pulse Rate [ Anterior Bilateral Throughout] Pulse Rate [ From Monitor] Respiratory 21 20 Rate Respiratory Rate [Anterior Bilateral Throughout] Respiratory Rate [ Generalized] Blood Pressure 112/54 109/89 109/89 O2 Sat by Pulse 100 100 100 Oximetry 08/31/17 08/31/17 08/31/17 10:00 10:30 11:00 Temperature Pulse Rate 92 H 92 H 91 H Pulse Rate [ Anterior Bilateral Throughout] Pulse Rate [ From Monitor] Respiratory 12 13 11 L Rate Respiratory Rate [Anterior Bilateral Throughout] Respiratory Rate [ Generalized] Blood Pressure 115/64 112/59 108/59 O2 Sat by Pulse 100 100 100 Oximetry Constitutional: alert, other (critically ill on vent, obese) Eyes: non-icteric ENT: oropharynx moist, other (NG tube in place in right nare) Neck: supple, no lymphadenopathy Effort: mildly labored Ascultation: Bilateral: clear (anteriorly), diminished breath sounds, wheezes ( faint expiratory wheezes), rhonchi (mild), other (coarse BS bilaterally) Cardiovascular: regular rate and rhythm (no mrg) Gastrointestinal: absent bowel sounds, non-tender, other (abdominal incision with dressing noted, obese) Extremities: no cyanosis, pink and warm, edema (3+ bilateral LE edema) Neurologic: normal mental status, non-focal exam, pupils equal and round Psychiatric: mood appropriate, affect normal CBC and BMP: 08/31/17 05:30 08/31/17 05:30 ABG, PT/INR, D-dimer: ABG POC ABG pH 7.335 (7.35-7.45) L 08/30/17 03:31 POC ABG pCO2 44.1 (35-45) 08/30/17 03:31 POC ABG pO2 117 (80-105) H 08/30/17 03:31 POC ABG HCO3 23.5 08/30/17 03:31 POC ABG Total CO2 25 08/30/17 03:31 POC ABG O2 Sat 98 08/30/17 03:31 PT/INR, D-dimer PT 14.9 Sec. (12.2-14.9) 08/28/17 22:30 INR 1.11 (0.87-1.13) 08/28/17 22:30 Abnormal lab findings: Abnormal Labs 08/08/17 08/08/17 08/09/17 21:23 21:31 11:19 WBC 15.7 H RBC 2.93 L Hgb 8.7 L Hct 26.8 L MCV RDW 19.2 H Plt Count Lymph % (Auto) [place] % (Auto) [place] # Seg Neutrophils % Seg Neuts % (Manual) Lymphocytes % (Manual) Monocytes % (Manual) Nucleated RBC % Seg Neutrophils # Seg Neutrophils # Man Lymphocytes # (Manual) Monocytes # (Manual) Eosinophils # (Manual) Basophils # (Manual) PT INR POC ABG pH 7.490 H POC ABG pCO2 POC ABG pO2 122 H Sodium Potassium Chloride Carbon Dioxide BUN Creatinine Glucose POC Glucose Calcium Phosphorus Magnesium AST ALT Alkaline Phosphatase Troponin T 0.133 H* C-Reactive Protein Total Protein Albumin HDL Cholesterol 26 L Miscellaneous Test Crossmatch 08/09/17 08/10/17 08/10/17 13:25 04:45 04:45 WBC 15.5 H RBC 2.97 L Hgb 8.9 L Hct 27.0 L MCV RDW 19.2 H Plt Count Lymph % (Auto) [place] % (Auto) [place] # Seg Neutrophils % Seg Neuts % (Manual) 73.0 H Lymphocytes % (Manual) 7.0 L Monocytes % (Manual) 14.0 H Nucleated RBC % Seg Neutrophils # Seg Neutrophils # Man 11.3 H Lymphocytes # (Manual) 1.1 L Monocytes # (Manual) 2.2 H Eosinophils # (Manual) Basophils # (Manual) 0.2 H PT INR POC ABG pH POC ABG pCO2 POC ABG pO2 Sodium Potassium 3.3 L Chloride 97.3 L Carbon Dioxide 21 L BUN 23 H Creatinine 6.5 H Glucose POC Glucose Calcium 7.3 L Phosphorus Magnesium AST ALT Alkaline Phosphatase 138 H Troponin T 0.132 H* C-Reactive Protein Total Protein 4.8 L Albumin 1.4 L HDL Cholesterol Miscellaneous Test Crossmatch 08/11/17 08/11/17 08/12/17 04:00 04:00 05:50 WBC 19.3 H RBC 3.10 L Hgb 9.5 L Hct 28.2 L MCV RDW 19.2 H Plt Count 463 H Lymph % (Auto) 7.5 L [place] % (Auto) 14.6 H [place] # 2.8 H Seg Neutrophils % 77.0 H Seg Neuts % (Manual) Lymphocytes % (Manual) Monocytes % (Manual) Nucleated RBC % Seg Neutrophils # 14.8 H Seg Neutrophils # Man Lymphocytes # (Manual) Monocytes # (Manual) Eosinophils # (Manual) Basophils # (Manual) PT INR POC ABG pH POC ABG pCO2 POC ABG pO2 Sodium 136 L 136 L Potassium 3.3 L Chloride 96.3 L 96.6 L Carbon Dioxide BUN 26 H 26 H Creatinine 6.4 H 6.2 H Glucose 135 H 133 H POC Glucose Calcium 8.2 L Phosphorus Magnesium 1.30 L AST ALT Alkaline Phosphatase 139 H Troponin T C-Reactive Protein Total Protein 5.5 L Albumin 1.7 L HDL Cholesterol Miscellaneous Test Crossmatch 08/12/17 08/12/17 08/12/17 05:50 05:50 05:50 WBC 20.1 H RBC 3.06 L Hgb 9.3 L Hct 27.9 L MCV RDW 18.4 H Plt Count 471 H Lymph % (Auto) [place] % (Auto) [place] # Seg Neutrophils % Seg Neuts % (Manual) 85.0 H Lymphocytes % (Manual) 8.0 L Monocytes % (Manual) Nucleated RBC % Seg Neutrophils # Seg Neutrophils # Man 17.1 H Lymphocytes # (Manual) Monocytes # (Manual) 1.0 H Eosinophils # (Manual) Basophils # (Manual) PT 15.2 H INR 1.14 H POC ABG pH POC ABG pCO2 POC ABG pO2 Sodium Potassium Chloride Carbon Dioxide BUN Creatinine Glucose POC Glucose Calcium Phosphorus Magnesium AST ALT Alkaline Phosphatase Troponin T C-Reactive Protein 28.90 H Total Protein Albumin HDL Cholesterol Miscellaneous Test Crossmatch 08/12/17 08/13/17 08/13/17 16:23 06:14 06:14 WBC 21.8 H RBC 3.11 L Hgb 9.4 L Hct 28.2 L MCV RDW 18.2 H Plt Count 492 H Lymph % (Auto) [place] % (Auto) [place] # Seg Neutrophils % Seg Neuts % (Manual) 73.0 H Lymphocytes % (Manual) 2.0 L Monocytes % (Manual) 15 H Nucleated RBC % Seg Neutrophils # Seg Neutrophils # Man 15.9 H Lymphocytes # (Manual) 0.4 L Monocytes # (Manual) 2.4 H Eosinophils # (Manual) Basophils # (Manual) PT INR POC ABG pH POC ABG pCO2 POC ABG pO2 Sodium Potassium Chloride 96.2 L Carbon Dioxide BUN 28 H Creatinine 5.6 H Glucose 114 H POC Glucose Calcium Phosphorus Magnesium AST ALT Alkaline Phosphatase Troponin T C-Reactive Protein 26.10 H Total Protein Albumin HDL Cholesterol Miscellaneous Test Crossmatch 08/13/17 08/14/17 08/14/17 16:39 04:00 04:00 WBC 22.1 H RBC 3.25 L Hgb 9.9 L Hct 29.5 L MCV RDW 17.9 H Plt Count 525 H Lymph % (Auto) [place] % (Auto) [place] # Seg Neutrophils % Seg Neuts % (Manual) 74.0 H Lymphocytes % (Manual) 8.0 L Monocytes % (Manual) 12.0 H Nucleated RBC % Seg Neutrophils # Seg Neutrophils # Man 16.4 H Lymphocytes # (Manual) Monocytes # (Manual) 2.7 H Eosinophils # (Manual) Basophils # (Manual) PT INR POC ABG pH POC ABG pCO2 POC ABG pO2 Sodium 134 L Potassium 3.3 L Chloride 93.3 L Carbon Dioxide BUN 27 H Creatinine 6.0 H Glucose 152 H POC Glucose 151 H Calcium Phosphorus Magnesium AST ALT Alkaline Phosphatase Troponin T C-Reactive Protein Total Protein Albumin HDL Cholesterol Miscellaneous Test Crossmatch 08/15/17 08/16/17 08/16/17 09:10 09:50 09:50 WBC 31.1 H RBC 3.21 L Hgb 9.6 L Hct 29.3 L MCV RDW 18.1 H Plt Count 642 H Lymph % (Auto) [place] % (Auto) [place] # Seg Neutrophils % Seg Neuts % (Manual) 74.0 H Lymphocytes % (Manual) 4.0 L Monocytes % (Manual) 9.0 H Nucleated RBC % Seg Neutrophils # Seg Neutrophils # Man 23.0 H Lymphocytes # (Manual) Monocytes # (Manual) 2.8 H Eosinophils # (Manual) Basophils # (Manual) PT INR POC ABG pH POC ABG pCO2 POC ABG pO2 Sodium 136 L 136 L Potassium 3.5 L Chloride 97.6 L 94.9 L Carbon Dioxide BUN 27 H 28 H Creatinine 5.6 H 5.5 H Glucose 117 H 103 H POC Glucose Calcium Phosphorus Magnesium AST ALT Alkaline Phosphatase 137 H Troponin T C-Reactive Protein Total Protein 5.4 L Albumin 1.5 L HDL Cholesterol Miscellaneous Test Crossmatch 08/16/17 08/17/17 08/17/17 09:50 05:00 06:26 WBC RBC Hgb Hct MCV RDW Plt Count Lymph % (Auto) [place] % (Auto) [place] # Seg Neutrophils % Seg Neuts % (Manual) Lymphocytes % (Manual) Monocytes % (Manual) Nucleated RBC % Seg Neutrophils # Seg Neutrophils # Man Lymphocytes # (Manual) Monocytes # (Manual) Eosinophils # (Manual) Basophils # (Manual) PT INR POC ABG pH POC ABG pCO2 POC ABG pO2 Sodium 134 L Potassium 3.0 L Chloride 97.8 L Carbon Dioxide BUN 30 H Creatinine 5.3 H Glucose 147 H POC Glucose 165 H Calcium 7.5 L Phosphorus Magnesium AST ALT Alkaline Phosphatase Troponin T C-Reactive Protein 32.30 H Total Protein Albumin HDL Cholesterol Miscellaneous Test Crossmatch 08/17/17 08/17/17 08/17/17 10:56 11:20 11:20 WBC 39.1 H RBC 3.10 L Hgb 9.2 L Hct 28.6 L MCV RDW 18.3 H Plt Count 580 H Lymph % (Auto) [place] % (Auto) [place] # Seg Neutrophils % Seg Neuts % (Manual) 89.5 H Lymphocytes % (Manual) 3.5 L Monocytes % (Manual) Nucleated RBC % Seg Neutrophils # Seg Neutrophils # Man 35.0 H Lymphocytes # (Manual) Monocytes # (Manual) 2.5 H Eosinophils # (Manual) Basophils # (Manual) 0.2 H PT INR POC ABG pH 7.464 H POC ABG pCO2 34.1 L POC ABG pO2 75 L Sodium Potassium Chloride Carbon Dioxide BUN Creatinine Glucose POC Glucose Calcium Phosphorus Magnesium AST ALT Alkaline Phosphatase Troponin T C-Reactive Protein Total Protein Albumin HDL Cholesterol Miscellaneous Test Flexitest 1 H Crossmatch 08/17/17 08/17/17 08/17/17 11:20 16:57 20:20 WBC 34.4 H RBC 2.81 L Hgb 8.4 L Hct 26.0 L MCV RDW 17.8 H Plt Count 455 H Lymph % (Auto) [place] % (Auto) [place] # Seg Neutrophils % Seg Neuts % (Manual) Lymphocytes % (Manual) 3.5 L Monocytes % (Manual) Nucleated RBC % 5.0 H Seg Neutrophils # Seg Neutrophils # Man 16.5 H Lymphocytes # (Manual) Monocytes # (Manual) 1.0 H Eosinophils # (Manual) Basophils # (Manual) PT 16.0 H INR 1.29 H POC ABG pH POC ABG pCO2 POC ABG pO2 Sodium 135 L Potassium 2.9 L* Chloride Carbon Dioxide 20 L BUN 32 H Creatinine 5.4 H Glucose 129 H POC Glucose Calcium 7.5 L Phosphorus Magnesium 1.50 L AST 85 H ALT Alkaline Phosphatase Troponin T C-Reactive Protein Total Protein 4.0 L D Albumin 1.6 L HDL Cholesterol Miscellaneous Test Crossmatch 08/17/17 08/17/17 08/18/17 20:54 23:47 04:26 WBC RBC Hgb Hct MCV RDW Plt Count Lymph % (Auto) [place] % (Auto) [place] # Seg Neutrophils % Seg Neuts % (Manual) Lymphocytes % (Manual) Monocytes % (Manual) Nucleated RBC % Seg Neutrophils # Seg Neutrophils # Man Lymphocytes # (Manual) Monocytes # (Manual) Eosinophils # (Manual) Basophils # (Manual) PT INR POC ABG pH 7.557 H POC ABG pCO2 23.1 L 29.0 L POC ABG pO2 187 H 148 H Sodium Potassium Chloride Carbon Dioxide BUN Creatinine Glucose POC Glucose 188 H Calcium Phosphorus Magnesium AST ALT Alkaline Phosphatase Troponin T C-Reactive Protein Total Protein Albumin HDL Cholesterol Miscellaneous Test Crossmatch 08/18/17 08/18/17 08/18/17 05:51 11:44 17:07 WBC RBC Hgb Hct MCV RDW Plt Count Lymph % (Auto) [place] % (Auto) [place] # Seg Neutrophils % Seg Neuts % (Manual) Lymphocytes % (Manual) Monocytes % (Manual) Nucleated RBC % Seg Neutrophils # Seg Neutrophils # Man Lymphocytes # (Manual) Monocytes # (Manual) Eosinophils # (Manual) Basophils # (Manual) PT INR POC ABG pH POC ABG pCO2 POC ABG pO2 Sodium Potassium Chloride Carbon Dioxide BUN Creatinine Glucose POC Glucose 202 H 195 H 182 H Calcium Phosphorus Magnesium AST ALT Alkaline Phosphatase Troponin T C-Reactive Protein Total Protein Albumin HDL Cholesterol Miscellaneous Test Crossmatch 08/18/17 08/18/17 08/18/17 23:45 Unknown Unknown WBC 39.0 H RBC 2.84 L Hgb 8.4 L Hct 26.5 L MCV RDW 18.0 H Plt Count 476 H Lymph % (Auto) [place] % (Auto) [place] # Seg Neutrophils % Seg Neuts % (Manual) Lymphocytes % (Manual) 7.0 L Monocytes % (Manual) 10.0 H Nucleated RBC % 3.0 H Seg Neutrophils # Seg Neutrophils # Man 15.6 H Lymphocytes # (Manual) Monocytes # (Manual) 3.9 H Eosinophils # (Manual) Basophils # (Manual) PT INR POC ABG pH POC ABG pCO2 POC ABG pO2 Sodium Potassium Chloride Carbon Dioxide 19 L BUN 34 H Creatinine 5.6 H Glucose 201 H POC Glucose 163 H Calcium 7.8 L Phosphorus 1.90 L D Magnesium 1.60 L AST ALT Alkaline Phosphatase Troponin T C-Reactive Protein Total Protein Albumin HDL Cholesterol Miscellaneous Test Crossmatch 08/19/17 08/19/17 08/19/17 04:18 05:00 05:00 WBC 40.0 H RBC 2.46 L Hgb 7.3 L Hct 22.6 L MCV RDW 18.1 H Plt Count Lymph % (Auto) [place] % (Auto) [place] # Seg Neutrophils % Seg Neuts % (Manual) Lymphocytes % (Manual) 8.0 L Monocytes % (Manual) Nucleated RBC % 2.0 H Seg Neutrophils # Seg Neutrophils # Man 16.4 H Lymphocytes # (Manual) Monocytes # (Manual) 1.2 H Eosinophils # (Manual) 1.2 H Basophils # (Manual) PT INR POC ABG pH 7.463 H POC ABG pCO2 29.7 L POC ABG pO2 134 H Sodium Potassium 5.1 H D Chloride Carbon Dioxide 20 L BUN 40 H Creatinine 5.3 H Glucose 128 H POC Glucose Calcium 7.8 L Phosphorus 1.90 L Magnesium AST ALT Alkaline Phosphatase Troponin T C-Reactive Protein Total Protein Albumin HDL Cholesterol Miscellaneous Test Crossmatch 08/19/17 08/19/17 08/19/17 05:19 07:37 09:52 WBC 45.0 H* RBC 2.50 L Hgb 7.5 L Hct 24.5 L MCV 98 H RDW 18.4 H Plt Count Lymph % (Auto) [place] % (Auto) [place] # Seg Neutrophils % Seg Neuts % (Manual) 81.5 H Lymphocytes % (Manual) 4.0 L Monocytes % (Manual) Nucleated RBC % 1.0 H Seg Neutrophils # Seg Neutrophils # Man 36.7 H Lymphocytes # (Manual) Monocytes # (Manual) Eosinophils # (Manual) Basophils # (Manual) PT INR POC ABG pH POC ABG pCO2 POC ABG pO2 Sodium Potassium Chloride Carbon Dioxide BUN Creatinine Glucose POC Glucose 142 H Calcium Phosphorus Magnesium AST ALT Alkaline Phosphatase Troponin T C-Reactive Protein 34.20 H Total Protein Albumin HDL Cholesterol Miscellaneous Test Crossmatch 08/19/17 08/19/17 08/20/17 11:16 18:12 00:35 WBC RBC Hgb Hct MCV RDW Plt Count Lymph % (Auto) [place] % (Auto) [place] # Seg Neutrophils % Seg Neuts % (Manual) Lymphocytes % (Manual) Monocytes % (Manual) Nucleated RBC % Seg Neutrophils # Seg Neutrophils # Man Lymphocytes # (Manual) Monocytes # (Manual) Eosinophils # (Manual) Basophils # (Manual) PT INR POC ABG pH POC ABG pCO2 POC ABG pO2 Sodium Potassium Chloride Carbon Dioxide BUN Creatinine Glucose POC Glucose 143 H 137 H 164 H Calcium Phosphorus Magnesium AST ALT Alkaline Phosphatase Troponin T C-Reactive Protein Total Protein Albumin HDL Cholesterol Miscellaneous Test Crossmatch 08/20/17 08/20/17 08/20/17 03:20 03:20 04:00 WBC 48.0 H* RBC 2.55 L Hgb 7.6 L Hct 23.4 L MCV RDW 18.4 H Plt Count Lymph % (Auto) [place] % (Auto) [place] # Seg Neutrophils % Seg Neuts % (Manual) 90.0 H Lymphocytes % (Manual) 3.0 L Monocytes % (Manual) Nucleated RBC % Seg Neutrophils # Seg Neutrophils # Man 43.2 H Lymphocytes # (Manual) Monocytes # (Manual) 1.4 H Eosinophils # (Manual) 0.5 H Basophils # (Manual) PT INR POC ABG pH 7.499 H POC ABG pCO2 29.1 L POC ABG pO2 Sodium 135 L Potassium Chloride Carbon Dioxide BUN 28 H Creatinine 4.0 H Glucose 140 H POC Glucose Calcium 8.0 L Phosphorus 1.70 L Magnesium 1.60 L AST ALT Alkaline Phosphatase Troponin T C-Reactive Protein Total Protein Albumin HDL Cholesterol Miscellaneous Test Crossmatch 08/20/17 08/20/17 08/20/17 05:02 12:05 13:12 WBC RBC Hgb Hct MCV RDW Plt Count Lymph % (Auto) [place] % (Auto) [place] # Seg Neutrophils % Seg Neuts % (Manual) Lymphocytes % (Manual) Monocytes % (Manual) Nucleated RBC % Seg Neutrophils # Seg Neutrophils # Man Lymphocytes # (Manual) Monocytes # (Manual) Eosinophils # (Manual) Basophils # (Manual) PT INR POC ABG pH 7.537 H POC ABG pCO2 27.9 L POC ABG pO2 79 L Sodium Potassium Chloride Carbon Dioxide BUN Creatinine Glucose POC Glucose 158 H 203 H Calcium Phosphorus Magnesium AST ALT Alkaline Phosphatase Troponin T C-Reactive Protein Total Protein Albumin HDL Cholesterol Miscellaneous Test Crossmatch 08/20/17 08/21/17 08/21/17 17:13 00:47 03:14 WBC RBC Hgb Hct MCV RDW Plt Count Lymph % (Auto) [place] % (Auto) [place] # Seg Neutrophils % Seg Neuts % (Manual) Lymphocytes % (Manual) Monocytes % (Manual) Nucleated RBC % Seg Neutrophils # Seg Neutrophils # Man Lymphocytes # (Manual) Monocytes # (Manual) Eosinophils # (Manual) Basophils # (Manual) PT INR POC ABG pH 7.481 H POC ABG pCO2 29.6 L POC ABG pO2 Sodium Potassium Chloride Carbon Dioxide BUN Creatinine Glucose POC Glucose 188 H 109 H Calcium Phosphorus Magnesium AST ALT Alkaline Phosphatase Troponin T C-Reactive Protein Total Protein Albumin HDL Cholesterol Miscellaneous Test Crossmatch 08/21/17 08/21/17 08/21/17 05:05 06:50 06:50 WBC 44.7 H* RBC 2.41 L Hgb 7.1 L Hct 22.1 L MCV RDW 18.3 H Plt Count Lymph % (Auto) [place] % (Auto) [place] # Seg Neutrophils % Seg Neuts % (Manual) 89.0 H Lymphocytes % (Manual) 0 L Monocytes % (Manual) Nucleated RBC % 1.0 H Seg Neutrophils # Seg Neutrophils # Man 39.8 H Lymphocytes # (Manual) 0.0 L Monocytes # (Manual) 1.3 H Eosinophils # (Manual) Basophils # (Manual) PT INR POC ABG pH POC ABG pCO2 POC ABG pO2 Sodium 135 L Potassium Chloride Carbon Dioxide BUN 39 H Creatinine 4.4 H Glucose 147 H POC Glucose 166 H Calcium 8.1 L Phosphorus Magnesium AST ALT < 5 L Alkaline Phosphatase 164 H Troponin T C-Reactive Protein Total Protein 4.7 L Albumin 1.4 L HDL Cholesterol Miscellaneous Test Crossmatch 08/21/17 08/21/17 08/21/17 08:00 12:21 17:02 WBC RBC Hgb Hct MCV RDW Plt Count Lymph % (Auto) [place] % (Auto) [place] # Seg Neutrophils % Seg Neuts % (Manual) Lymphocytes % (Manual) Monocytes % (Manual) Nucleated RBC % Seg Neutrophils # Seg Neutrophils # Man Lymphocytes # (Manual) Monocytes # (Manual) Eosinophils # (Manual) Basophils # (Manual) PT INR POC ABG pH POC ABG pCO2 POC ABG pO2 Sodium Potassium Chloride Carbon Dioxide BUN Creatinine Glucose POC Glucose 147 H 135 H Calcium Phosphorus Magnesium AST ALT Alkaline Phosphatase Troponin T C-Reactive Protein Total Protein Albumin HDL Cholesterol Miscellaneous Test Crossmatch See Detail 08/21/17 08/22/17 08/22/17 23:38 03:40 03:40 WBC 42.5 H* RBC 2.88 L Hgb 8.5 L Hct 26.3 L MCV RDW 17.9 H Plt Count Lymph % (Auto) [place] % (Auto) [place] # Seg Neutrophils % Seg Neuts % (Manual) Lymphocytes % (Manual) 5.0 L Monocytes % (Manual) Nucleated RBC % Seg Neutrophils # Seg Neutrophils # Man 19.6 H Lymphocytes # (Manual) Monocytes # (Manual) 2.6 H Eosinophils # (Manual) Basophils # (Manual) PT INR POC ABG pH POC ABG pCO2 POC ABG pO2 Sodium Potassium 3.3 L D Chloride Carbon Dioxide BUN 27 H Creatinine 2.9 H Glucose 144 H POC Glucose 251 H Calcium 8.0 L Phosphorus 2.40 L Magnesium AST ALT Alkaline Phosphatase Troponin T C-Reactive Protein Total Protein Albumin HDL Cholesterol Miscellaneous Test Crossmatch 08/22/17 08/22/17 08/22/17 06:37 08:50 11:25 WBC RBC Hgb Hct MCV RDW Plt Count Lymph % (Auto) [place] % (Auto) [place] # Seg Neutrophils % Seg Neuts % (Manual) Lymphocytes % (Manual) Monocytes % (Manual) Nucleated RBC % Seg Neutrophils # Seg Neutrophils # Man Lymphocytes # (Manual) Monocytes # (Manual) Eosinophils # (Manual) Basophils # (Manual) PT INR POC ABG pH POC ABG pCO2 POC ABG pO2 Sodium Potassium Chloride Carbon Dioxide BUN Creatinine Glucose POC Glucose 152 H 175 H Calcium Phosphorus Magnesium AST ALT Alkaline Phosphatase Troponin T C-Reactive Protein Total Protein Albumin HDL Cholesterol Miscellaneous Test Flexitest 1 H Crossmatch 08/22/17 08/22/17 08/22/17 16:25 17:56 23:03 WBC RBC Hgb Hct MCV RDW Plt Count Lymph % (Auto) [place] % (Auto) [place] # Seg Neutrophils % Seg Neuts % (Manual) Lymphocytes % (Manual) Monocytes % (Manual) Nucleated RBC % Seg Neutrophils # Seg Neutrophils # Man Lymphocytes # (Manual) Monocytes # (Manual) Eosinophils # (Manual) Basophils # (Manual) PT INR POC ABG pH POC ABG pCO2 POC ABG pO2 Sodium Potassium Chloride Carbon Dioxide BUN Creatinine Glucose POC Glucose 232 H 192 H Calcium Phosphorus Magnesium AST ALT Alkaline Phosphatase Troponin T C-Reactive Protein 30.70 H Total Protein Albumin HDL Cholesterol Miscellaneous Test Crossmatch 08/23/17 08/23/17 08/23/17 05:36 08:50 12:14 WBC RBC Hgb Hct MCV RDW Plt Count Lymph % (Auto) [place] % (Auto) [place] # Seg Neutrophils % Seg Neuts % (Manual) Lymphocytes % (Manual) Monocytes % (Manual) Nucleated RBC % Seg Neutrophils # Seg Neutrophils # Man Lymphocytes # (Manual) Monocytes # (Manual) Eosinophils # (Manual) Basophils # (Manual) PT INR POC ABG pH POC ABG pCO2 POC ABG pO2 Sodium Potassium Chloride 107.1 H Carbon Dioxide BUN 49 H Creatinine 3.3 H Glucose 172 H POC Glucose 206 H 238 H Calcium Phosphorus Magnesium 2.40 H AST ALT Alkaline Phosphatase Troponin T C-Reactive Protein Total Protein Albumin HDL Cholesterol Miscellaneous Test Crossmatch 08/23/17 08/23/17 08/24/17 17:21 23:13 04:00 WBC 34.2 H RBC 2.86 L Hgb 8.4 L Hct 25.9 L MCV RDW 17.9 H Plt Count Lymph % (Auto) [place] % (Auto) [place] # Seg Neutrophils % Seg Neuts % (Manual) 85.0 H Lymphocytes % (Manual) 0.5 L Monocytes % (Manual) Nucleated RBC % 1.0 H Seg Neutrophils # Seg Neutrophils # Man 29.1 H Lymphocytes # (Manual) 0.2 L Monocytes # (Manual) 2.4 H Eosinophils # (Manual) Basophils # (Manual) PT INR POC ABG pH POC ABG pCO2 POC ABG pO2 Sodium Potassium Chloride Carbon Dioxide BUN Creatinine Glucose POC Glucose 226 H 183 H Calcium Phosphorus Magnesium AST ALT Alkaline Phosphatase Troponin T C-Reactive Protein Total Protein Albumin HDL Cholesterol Miscellaneous Test Crossmatch 08/24/17 08/24/17 08/24/17 05:06 09:30 12:04 WBC RBC Hgb Hct MCV RDW Plt Count Lymph % (Auto) [place] % (Auto) [place] # Seg Neutrophils % Seg Neuts % (Manual) Lymphocytes % (Manual) Monocytes % (Manual) Nucleated RBC % Seg Neutrophils # Seg Neutrophils # Man Lymphocytes # (Manual) Monocytes # (Manual) Eosinophils # (Manual) Basophils # (Manual) PT INR POC ABG pH POC ABG pCO2 POC ABG pO2 Sodium Potassium Chloride Carbon Dioxide BUN 46 H Creatinine 2.5 H Glucose 176 H POC Glucose 201 H 181 H Calcium Phosphorus Magnesium AST ALT Alkaline Phosphatase Troponin T C-Reactive Protein Total Protein Albumin HDL Cholesterol Miscellaneous Test Crossmatch 08/24/17 08/24/17 08/25/17 18:04 23:05 05:05 WBC RBC Hgb Hct MCV RDW Plt Count Lymph % (Auto) [place] % (Auto) [place] # Seg Neutrophils % Seg Neuts % (Manual) Lymphocytes % (Manual) Monocytes % (Manual) Nucleated RBC % Seg Neutrophils # Seg Neutrophils # Man Lymphocytes # (Manual) Monocytes # (Manual) Eosinophils # (Manual) Basophils # (Manual) PT INR POC ABG pH POC ABG pCO2 POC ABG pO2 Sodium Potassium Chloride Carbon Dioxide BUN Creatinine Glucose POC Glucose 189 H 175 H 190 H Calcium Phosphorus Magnesium AST ALT Alkaline Phosphatase Troponin T C-Reactive Protein Total Protein Albumin HDL Cholesterol Miscellaneous Test Crossmatch 08/25/17 08/25/17 08/26/17 07:02 11:53 05:30 WBC 33.5 H RBC 2.47 L Hgb 7.3 L Hct 23.0 L MCV RDW 21.3 H Plt Count Lymph % (Auto) [place] % (Auto) [place] # Seg Neutrophils % Seg Neuts % (Manual) 92.0 H Lymphocytes % (Manual) 1.0 L Monocytes % (Manual) Nucleated RBC % Seg Neutrophils # Seg Neutrophils # Man 30.8 H Lymphocytes # (Manual) 0.3 L Monocytes # (Manual) Eosinophils # (Manual) Basophils # (Manual) PT INR POC ABG pH POC ABG pCO2 POC ABG pO2 Sodium Potassium Chloride Carbon Dioxide BUN 32 H Creatinine 5.0 H D Glucose 117 H POC Glucose 191 H Calcium 8.0 L Phosphorus Magnesium AST ALT Alkaline Phosphatase Troponin T C-Reactive Protein Total Protein Albumin HDL Cholesterol Miscellaneous Test Crossmatch 08/26/17 08/26/17 08/26/17 05:30 06:44 13:26 WBC RBC Hgb Hct MCV RDW Plt Count Lymph % (Auto) [place] % (Auto) [place] # Seg Neutrophils % Seg Neuts % (Manual) Lymphocytes % (Manual) Monocytes % (Manual) Nucleated RBC % Seg Neutrophils # Seg Neutrophils # Man Lymphocytes # (Manual) Monocytes # (Manual) Eosinophils # (Manual) Basophils # (Manual) PT INR POC ABG pH POC ABG pCO2 POC ABG pO2 Sodium Potassium 5.2 H Chloride Carbon Dioxide BUN 80 H Creatinine 3.4 H Glucose 193 H POC Glucose 232 H 207 H Calcium 8.3 L Phosphorus 6.80 H D Magnesium 2.60 H AST 135 H ALT Alkaline Phosphatase 211 H Troponin T C-Reactive Protein Total Protein 4.8 L Albumin 2.0 L HDL Cholesterol Miscellaneous Test Crossmatch 08/27/17 08/27/17 08/27/17 01:08 06:20 06:20 WBC 35.0 H RBC 2.75 L Hgb 8.4 L Hct 25.1 L MCV RDW 21.8 H Plt Count Lymph % (Auto) [place] % (Auto) [place] # Seg Neutrophils % Seg Neuts % (Manual) Lymphocytes % (Manual) 4.5 L Monocytes % (Manual) Nucleated RBC % Seg Neutrophils # Seg Neutrophils # Man 31.9 H Lymphocytes # (Manual) Monocytes # (Manual) 1.2 H Eosinophils # (Manual) Basophils # (Manual) PT INR POC ABG pH POC ABG pCO2 POC ABG pO2 Sodium Potassium Chloride Carbon Dioxide BUN 61 H Creatinine 2.6 H Glucose 184 H POC Glucose 146 H Calcium Phosphorus 4.90 H D Magnesium AST ALT Alkaline Phosphatase Troponin T C-Reactive Protein Total Protein Albumin HDL Cholesterol Miscellaneous Test Crossmatch 08/27/17 08/27/17 08/27/17 07:01 09:17 12:52 WBC RBC Hgb Hct MCV RDW Plt Count Lymph % (Auto) [place] % (Auto) [place] # Seg Neutrophils % Seg Neuts % (Manual) Lymphocytes % (Manual) Monocytes % (Manual) Nucleated RBC % Seg Neutrophils # Seg Neutrophils # Man Lymphocytes # (Manual) Monocytes # (Manual) Eosinophils # (Manual) Basophils # (Manual) PT INR POC ABG pH POC ABG pCO2 POC ABG pO2 Sodium Potassium Chloride Carbon Dioxide BUN Creatinine Glucose POC Glucose 165 H 198 H 218 H Calcium Phosphorus Magnesium AST ALT Alkaline Phosphatase Troponin T C-Reactive Protein Total Protein Albumin HDL Cholesterol Miscellaneous Test Crossmatch 08/27/17 08/28/17 08/28/17 17:27 02:13 06:46 WBC RBC Hgb Hct MCV RDW Plt Count Lymph % (Auto) [place] % (Auto) [place] # Seg Neutrophils % Seg Neuts % (Manual) Lymphocytes % (Manual) Monocytes % (Manual) Nucleated RBC % Seg Neutrophils # Seg Neutrophils # Man Lymphocytes # (Manual) Monocytes # (Manual) Eosinophils # (Manual) Basophils # (Manual) PT INR POC ABG pH POC ABG pCO2 POC ABG pO2 Sodium Potassium Chloride Carbon Dioxide BUN Creatinine Glucose POC Glucose 151 H 155 H 230 H Calcium Phosphorus Magnesium AST ALT Alkaline Phosphatase Troponin T C-Reactive Protein Total Protein Albumin HDL Cholesterol Miscellaneous Test Crossmatch 08/28/17 08/28/17 08/28/17 06:53 06:53 08:19 WBC 31.1 H RBC 2.26 L Hgb 6.8 L Hct 20.9 L MCV RDW 21.7 H Plt Count Lymph % (Auto) [place] % (Auto) [place] # Seg Neutrophils % Seg Neuts % (Manual) 83.0 H Lymphocytes % (Manual) 4.0 L Monocytes % (Manual) Nucleated RBC % Seg Neutrophils # Seg Neutrophils # Man 25.8 H Lymphocytes # (Manual) Monocytes # (Manual) Eosinophils # (Manual) Basophils # (Manual) PT INR POC ABG pH POC ABG pCO2 POC ABG pO2 Sodium Potassium Chloride Carbon Dioxide BUN 81 H Creatinine 3.4 H Glucose 218 H POC Glucose 239 H Calcium Phosphorus 4.90 H Magnesium AST ALT Alkaline Phosphatase Troponin T C-Reactive Protein Total Protein Albumin HDL Cholesterol Miscellaneous Test Crossmatch 08/28/17 08/28/17 08/28/17 11:56 13:05 13:29 WBC RBC Hgb Hct MCV RDW Plt Count Lymph % (Auto) [place] % (Auto) [place] # Seg Neutrophils % Seg Neuts % (Manual) Lymphocytes % (Manual) Monocytes % (Manual) Nucleated RBC % Seg Neutrophils # Seg Neutrophils # Man Lymphocytes # (Manual) Monocytes # (Manual) Eosinophils # (Manual) Basophils # (Manual) PT 16.7 H INR 1.29 H POC ABG pH POC ABG pCO2 POC ABG pO2 338 H Sodium Potassium Chloride Carbon Dioxide BUN Creatinine Glucose POC Glucose Calcium Phosphorus Magnesium AST ALT Alkaline Phosphatase Troponin T C-Reactive Protein Total Protein Albumin HDL Cholesterol Miscellaneous Test Crossmatch See Detail 08/28/17 08/28/17 08/29/17 16:22 19:20 04:24 WBC RBC Hgb Hct MCV RDW Plt Count Lymph % (Auto) [place] % (Auto) [place] # Seg Neutrophils % Seg Neuts % (Manual) Lymphocytes % (Manual) Monocytes % (Manual) Nucleated RBC % Seg Neutrophils # Seg Neutrophils # Man Lymphocytes # (Manual) Monocytes # (Manual) Eosinophils # (Manual) Basophils # (Manual) PT INR POC ABG pH 7.469 H POC ABG pCO2 POC ABG pO2 240 H Sodium Potassium Chloride Carbon Dioxide BUN Creatinine Glucose POC Glucose 209 H 195 H Calcium Phosphorus Magnesium AST ALT Alkaline Phosphatase Troponin T C-Reactive Protein Total Protein Albumin HDL Cholesterol Miscellaneous Test Crossmatch 08/29/17 08/29/17 08/29/17 04:30 04:30 12:07 WBC 44.9 H* RBC Hgb Hct MCV RDW 23.1 H Plt Count Lymph % (Auto) [place] % (Auto) [place] # Seg Neutrophils % Seg Neuts % (Manual) 38.0 L Lymphocytes % (Manual) 10.0 L Monocytes % (Manual) 10.0 H Nucleated RBC % 6.0 H Seg Neutrophils # Seg Neutrophils # Man 17.1 H Lymphocytes # (Manual) Monocytes # (Manual) 4.5 H Eosinophils # (Manual) Basophils # (Manual) PT INR POC ABG pH POC ABG pCO2 POC ABG pO2 Sodium Potassium Chloride Carbon Dioxide BUN 61 H Creatinine 2.4 H Glucose 226 H POC Glucose 200 H Calcium Phosphorus Magnesium AST ALT Alkaline Phosphatase Troponin T C-Reactive Protein Total Protein Albumin HDL Cholesterol Miscellaneous Test Crossmatch 08/29/17 08/29/17 08/29/17 12:30 12:30 17:23 WBC RBC Hgb Hct MCV RDW Plt Count Lymph % (Auto) [place] % (Auto) [place] # Seg Neutrophils % Seg Neuts % (Manual) Lymphocytes % (Manual) Monocytes % (Manual) Nucleated RBC % Seg Neutrophils # Seg Neutrophils # Man Lymphocytes # (Manual) Monocytes # (Manual) Eosinophils # (Manual) Basophils # (Manual) PT INR POC ABG pH POC ABG pCO2 POC ABG pO2 Sodium Potassium Chloride Carbon Dioxide BUN Creatinine Glucose POC Glucose 270 H Calcium Phosphorus Magnesium AST ALT Alkaline Phosphatase Troponin T C-Reactive Protein 19.10 H Total Protein Albumin HDL Cholesterol Miscellaneous Test Flexitest 1 H Crossmatch 08/30/17 08/30/17 08/30/17 00:10 01:30 03:31 WBC RBC Hgb Hct MCV RDW Plt Count Lymph % (Auto) [place] % (Auto) [place] # Seg Neutrophils % Seg Neuts % (Manual) Lymphocytes % (Manual) Monocytes % (Manual) Nucleated RBC % Seg Neutrophils # Seg Neutrophils # Man Lymphocytes # (Manual) Monocytes # (Manual) Eosinophils # (Manual) Basophils # (Manual) PT INR POC ABG pH 7.168 L 7.335 L POC ABG pCO2 72.8 H POC ABG pO2 257 H 117 H Sodium Potassium Chloride Carbon Dioxide BUN Creatinine Glucose POC Glucose 245 H Calcium Phosphorus Magnesium AST ALT Alkaline Phosphatase Troponin T C-Reactive Protein Total Protein Albumin HDL Cholesterol Miscellaneous Test Crossmatch 08/30/17 08/30/17 08/30/17 05:20 05:20 05:20 WBC 40.9 H* RBC 3.64 L Hgb Hct MCV RDW 24.3 H Plt Count Lymph % (Auto) [place] % (Auto) [place] # Seg Neutrophils % Seg Neuts % (Manual) 80.0 H Lymphocytes % (Manual) 3.0 L Monocytes % (Manual) Nucleated RBC % 1.0 H Seg Neutrophils # Seg Neutrophils # Man 32.7 H Lymphocytes # (Manual) Monocytes # (Manual) Eosinophils # (Manual) Basophils # (Manual) PT INR POC ABG pH POC ABG pCO2 POC ABG pO2 Sodium Potassium Chloride Carbon Dioxide BUN 83 H Creatinine 2.9 H Glucose 334 H POC Glucose 309 H Calcium Phosphorus Magnesium AST ALT Alkaline Phosphatase Troponin T C-Reactive Protein Total Protein Albumin HDL Cholesterol Miscellaneous Test Crossmatch 08/30/17 08/30/17 08/31/17 12:18 17:36 00:17 WBC RBC Hgb Hct MCV RDW Plt Count Lymph % (Auto) [place] % (Auto) [place] # Seg Neutrophils % Seg Neuts % (Manual) Lymphocytes % (Manual) Monocytes % (Manual) Nucleated RBC % Seg Neutrophils # Seg Neutrophils # Man Lymphocytes # (Manual) Monocytes # (Manual) Eosinophils # (Manual) Basophils # (Manual) PT INR POC ABG pH POC ABG pCO2 POC ABG pO2 Sodium Potassium Chloride Carbon Dioxide BUN Creatinine Glucose POC Glucose 273 H 293 H 360 H Calcium Phosphorus Magnesium AST ALT Alkaline Phosphatase Troponin T C-Reactive Protein Total Protein Albumin HDL Cholesterol Miscellaneous Test Crossmatch 08/31/17 08/31/17 08/31/17 05:30 05:30 05:32 WBC 29.9 H RBC 2.89 L Hgb 8.2 L Hct 24.7 L D MCV RDW 24.4 H Plt Count Lymph % (Auto) [place] % (Auto) [place] # Seg Neutrophils % Seg Neuts % (Manual) Lymphocytes % (Manual) 2.0 L Monocytes % (Manual) Nucleated RBC % 2.0 H Seg Neutrophils # Seg Neutrophils # Man 18.5 H Lymphocytes # (Manual) 0.6 L Monocytes # (Manual) 0.9 H Eosinophils # (Manual) Basophils # (Manual) PT INR POC ABG pH POC ABG pCO2 POC ABG pO2 Sodium Potassium Chloride Carbon Dioxide BUN 62 H Creatinine 2.2 H Glucose 245 H POC Glucose 257 H Calcium Phosphorus 2.10 L D Magnesium 1.60 L AST ALT Alkaline Phosphatase Troponin T C-Reactive Protein Total Protein Albumin HDL Cholesterol Miscellaneous Test Crossmatch
--- NOTE | 2017-08-31 12:24 | Progress Note ---
Assessment and Plan 62 y.o. F s/p ex-lap, lysis of adhesions, G tube placement, YAMINI drain placement: POD 13 Fascia dehiscence at abdominal closure: repacked wound. Pt needs to go back to the OR today for redo exlap, washout and closure of abdomen. This plan was discussed with the family and they agree to proceed after risks and benefits were discussed. Pt high risk for surgery and poor wound healing due to her multiple co-morbidities. -2units PRBC on hold for OR GI bleed: resolved. PPI gastric perforation: poor overall nutritional status making the defect difficult to re-seal despite intra-luminal decompression and external drainage. Will re-eval YAMINI drain placement at time of OR today. Record YAMINI output and G tube output in order to assess if she is adequately being decompressed. . ID: Covering Gut grace 2/2 perforation:f/u cultures from abd wound: MRSA, maxx and enteroc. : zyvox merrem, and micafungin Follow up cultures from abdominal wound. Leukocytosis worsening. Rec. change fem line when stable. if temp rec lr culture rec dc of ivan TPN for nutrition Resp: Vent per ICU. weaning trial this am. f/u abg renal failure: HD per renal. will defer to renal for dialysis and fluid/ electrolyte management. Sacral wound and RLE wound: wound care following. GI proph: PPI DVT proph: rec hold hep subq. SCDS - Patient Problems (1) Peritonitis (acute) generalized Current Visit: Yes Status: Acute Subjective Narrative: Family at bedside. No further bleeding from rectum per nurse. ET changed yesterday due to clog in previous one. HD yesterday with 2.5 L removed. Pt opens eyes to name and pain. Does not answer questions. outputs: G tube: 250cc bilious NG minimal YAMINI: 165 drk blood in bulb, serosang in drain tube. afebrile Levo fentanyl Objective Vital Signs - 12hr 08/31/17 08/31/17 08/31/17 00:30 00:40 01:00 Temperature Pulse Rate 87 85 82 Pulse Rate [ Anterior Bilateral Throughout] Pulse Rate [ From Monitor] Respiratory 19 20 Rate Respiratory Rate [Anterior Bilateral Throughout] Respiratory Rate [ Generalized] Blood Pressure 126/69 126/69 114/55 O2 Sat by Pulse 100 100 96 Oximetry 08/31/17 08/31/1717 01:04 01:30 02:00 Temperature Pulse Rate 85 83 Pulse Rate [ Anterior Bilateral Throughout] Pulse Rate [ From Monitor] Respiratory 22 21 20 Rate Respiratory Rate [Anterior Bilateral Throughout] Respiratory Rate [ Generalized] Blood Pressure 128/59 120/51 O2 Sat by Pulse 87 100 Oximetry 08/31/17 08/31/17 08/31/17 02:30 02:41 02:55 Temperature Pulse Rate 85 Pulse Rate [ 82 85 Anterior Bilateral Throughout] Pulse Rate [ From Monitor] Respiratory 16 Rate Respiratory 20 20 Rate [Anterior Bilateral Throughout] Respiratory Rate [ Generalized] Blood Pressure 121/53 O2 Sat by Pulse 100 Oximetry 08/31/17 08/31/17 08/31/17 03:00 03:30 03:59 Temperature 98.8 F Pulse Rate 84 89 Pulse Rate [ Anterior Bilateral Throughout] Pulse Rate [ From Monitor] Respiratory 21 20 Rate Respiratory Rate [Anterior Bilateral Throughout] Respiratory Rate [ Generalized] Blood Pressure 114/54 117/52 O2 Sat by Pulse 100 100 Oximetry 08/31/17 08/31/17 08/31/17 04:00 04:30 05:00 Temperature Pulse Rate 88 92 H 92 H Pulse Rate [ Anterior Bilateral Throughout] Pulse Rate [ From Monitor] Respiratory 20 21 20 Rate Respiratory Rate [Anterior Bilateral Throughout] Respiratory 24 Rate [ Generalized] Blood Pressure 100/47 100/47 100/47 O2 Sat by Pulse 100 88 100 Oximetry 08/31/17 08/31/17 08/31/17 05:30 06:00 06:30 Temperature Pulse Rate 87 84 88 Pulse Rate [ Anterior Bilateral Throughout] Pulse Rate [ From Monitor] Respiratory 19 19 20 Rate Respiratory Rate [Anterior Bilateral Throughout] Respiratory Rate [ Generalized] Blood Pressure 90/42 95/44 104/55 O2 Sat by Pulse 100 100 100 Oximetry 08/31/17 08/31/17 08/31/17 07:00 07:30 08:00 Temperature 98.2 F Pulse Rate 86 85 86 Pulse Rate [ Anterior Bilateral Throughout] Pulse Rate [ 86 From Monitor] Respiratory 20 20 20 Rate Respiratory Rate [Anterior Bilateral Throughout] Respiratory Rate [ Generalized] Blood Pressure 108/45 92/45 104/51 O2 Sat by Pulse 100 100 100 Oximetry 08/31/17 08/31/17 08/31/17 08:30 09:00 09:27 Temperature Pulse Rate 85 85 80 Pulse Rate [ Anterior Bilateral Throughout] Pulse Rate [ From Monitor] Respiratory 20 21 Rate Respiratory Rate [Anterior Bilateral Throughout] Respiratory Rate [ Generalized] Blood Pressure 111/52 112/54 109/89 O2 Sat by Pulse 100 100 100 Oximetry 08/31/17 08/31/17 08/31/17 09:30 10:00 10:30 Temperature Pulse Rate 86 92 H 92 H Pulse Rate [ Anterior Bilateral Throughout] Pulse Rate [ From Monitor] Respiratory 20 12 13 Rate Respiratory Rate [Anterior Bilateral Throughout] Respiratory Rate [ Generalized] Blood Pressure 109/89 115/64 112/59 O2 Sat by Pulse 100 100 100 Oximetry 08/31/17 11:00 Temperature Pulse Rate 91 H Pulse Rate [ Anterior Bilateral Throughout] Pulse Rate [ From Monitor] Respiratory 11 L Rate Respiratory Rate [Anterior Bilateral Throughout] Respiratory Rate [ Generalized] Blood Pressure 108/59 O2 Sat by Pulse 100 Oximetry - General physical appearance chronically ill, obese - Respiratory normal expansion, other (vent) - Abdomen soft, other (abdominal wound packing removed- superior portion of wound: gap in the fascia with clot and serous fluid and intaabdoinal yamini noted. Fascial defect noted. approx 5cm in legth. wound immed. packed with sterile wet saline and covered with gauze, covering. YAMINI and G tube in place. abd. soft. grimace with palp to midline ) - Genitourinary other (ivan ) - Neurologic other (open eyes, doesnt follow commands ) - Labs 08/31/17 05:30 08/31/17 05:30 Diabetes panel 08/31/17 Range/Units 05:30 Carbon Dioxide 24 (22-30) mmol/L BUN 62 H (7-17) mg/dL Creatinine 2.2 H (0.7-1.2) mg/dL Glucose 245 H (65-100) mg/dL Calcium 8.5 (8.4-10.2) mg/dL Calcium panel 08/31/17 Range/Units 05:30 Calcium 8.5 (8.4-10.2) mg/dL Phosphorus 2.10 L D (2.5-4.5) mg/dL Pituitary panel 08/31/17 Range/Units 05:30 Carbon Dioxide 24 (22-30) mmol/L BUN 62 H (7-17) mg/dL Creatinine 2.2 H (0.7-1.2) mg/dL Glucose 245 H (65-100) mg/dL Calcium 8.5 (8.4-10.2) mg/dL Adrenal panel 08/31/17 Range/Units 05:30 Carbon Dioxide 24 (22-30) mmol/L BUN 62 H (7-17) mg/dL Creatinine 2.2 H (0.7-1.2) mg/dL Glucose 245 H (65-100) mg/dL Calcium 8.5 (8.4-10.2) mg/dL
[2017-08-31] MEDS ORDERED: BACITRACIN ONE (14:10)
--- NOTE | 2017-08-31 14:16 | Anesthesia Consultation ---
Anesthesia Consult and Med Hx Date of service: 08/31/17 - Airway Intubation Access Assessment: Possibly Difficult - Pulmonary Exam CTA: Yes - Cardiac Exam Cardiac Exam: RRR - Pre-Operative Health Status ASA Pre-Surgery Classification: ASA4, Emergency Proposed Anesthetic Plan: General - Pre-Anesthesia Comment Pre-Anesthesia Comments: Patient has bacterial peritonitis/ sepsis. She is intubated and on levophed drip. Has had prior posterior cervical fusion. 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 Echo this admission was essentially normal. Spoke with family and they are aware of severity of situation and that surgery is life saving but also life threatening.
--- NOTE | 2017-08-31 14:18 | Anesthesia Day of Surgery ---
Anesthesia Day of Surgery - Day of Surgery Patient Examined: Yes Patient H&P Reviewed: Yes Patient is NPO: Yes
--- NOTE | 2017-08-31 14:24 | Progress Note ---
Assessment and Plan Assessment and plan: 62 YO Female with MO, ESRD-PD (with PD cath in place )(Daily), HTN, OA, Ischemic Cardiomyopathy currently on Milrinone, Chronic Pain who came to ED with lightheaded and syncope, she c/o abdomnal pain x 2 days, was found to have hypotension, septic shock and intra-abdominal abscess. Acute hypoxic respiratory failure on MV < 96 hours continue ventilator Activity rectal bleeding with severe acute blood loss anemia -EGD showed small gastric ulcer -sp multiple transfusions -- GI consult appreciated - Patient had CTA of abdomen and pelvis no active bleeding - transfuse to keep Hg above 8 given septic shock ESRD -continue HD per renal per femoral HD cath -needs perm cath when improved Septic shock. - continue IV pressors Sepsis secondary to peritonitis, Intra abdominal abscess and Bowel obstruction - Patient had completed 14 days of meropenem and diflucan - Patient restarted with IV vancomycin, meropenem and micafungin, ID input appreciated -ID on board - she has had the following procedures 08/17: Ex lap with G tube placement, EGD, abdominal wash out and removal of PD Cath Ulcerative esophagitis/small gastric ulcer on EGD - IV pantoprazole Severe Protein calorie malnutrition - Continue with TPN Sacral and lower extremity wound, POA - continue wound care --DVT prophylaxis; SCDs - D/C Heparin because of GI bleed Plan of care discussed with the patient's family at bedside Disposition - continue ICU care Prognosis: guarded The high probability of a clinically significant, sudden or life threatening deterioration of the [cv, pulmonary and GI] system(s) required my full and direct attention, intervention and personal management. The aggregate critical care time was [33] minutes. This time is in addition to time spent performing reported procedures but includes the following: [] Data Review and interpretation [] Patient assessment and monitoring of vital signs [] Documentation [] Medication orders and management History Interval history: continues to be intubated, sedated, pressor dependent Hospitalist Physical - Physical exam Narrative exam: General.: Obese HEENT: Moist mucous membranes, extraocular muscles intact, no lymphadenopathy Neck: supple Cardiac: S1-S2 heard Lungs: clear to auscultation bilaterally Abdomen: soft, bowel sounds normal, other (obese, soft, with midline packing, dressing not removed) Extremities: no edema clubbing or cyanosis Skin: no rash or lesions Neurologic: Intubated, obeys commands, arousable - Constitutional Vitals: Temp Pulse Resp BP Pulse Ox 97.9 F 83 18 118/55 100 08/31/17 12:00 08/31/17 13:57 08/31/17 13:00 08/31/17 13:57 08/31/17 13:57 Results - Labs CBC & Chem 7: 09/01/17 05:00 09/02/17 06:10 Labs: Laboratory Last Values WBC 29.9 K/mm3 (4.5-11.0) H 08/31/17 05:30 RBC 2.89 M/mm3 (3.65-5.03) L 08/31/17 05:30 Hgb 8.2 gm/dl (10.1-14.3) L 08/31/17 05:30 Hct 24.7 % (30.3-42.9) L D 08/31/17 05:30 MCV 86 fl (79-97) 08/31/17 05:30 MCH 28 pg (28-32) 08/31/17 05:30 MCHC 33 % (30-34) 08/31/17 05:30 RDW 24.4 % (13.2-15.2) H 08/31/17 05:30 Plt Count 274 K/mm3 (140-440) 08/31/17 05:30 Lymph % (Auto) Expenditure Requisition Clerk 08/19/17 07:37 Norman % (Auto) Expenditure Requisition Clerk 08/19/17 07:37 Eos % (Auto) Expenditure Requisition Clerk 08/19/17 07:37 Baso % (Auto) Expenditure Requisition Clerk 08/19/17 07:37 Lymph # Expenditure Requisition Clerk 08/19/17 07:37 Norman # Expenditure Requisition Clerk 08/19/17 07:37 Eos # Expenditure Requisition Clerk 08/19/17 07:37 Baso # Expenditure Requisition Clerk 08/19/17 07:37 Add Manual Diff Complete 08/31/17 05:30 Total Counted 100 08/31/17 05:30 Seg Neutrophils % Expenditure Requisition Clerk 08/30/17 05:20 Seg Neuts % (Manual) 62.0 % (40.0-70.0) 08/31/17 05:30 Band Neutrophils % 26.0 % 08/31/17 05:30 Lymphocytes % (Manual) 2.0 % (13.4-35.0) L 08/31/17 05:30 Reactive Lymphs % (Man) 0 % 08/31/17 05:30 Monocytes % (Manual) 3.0 % (0.0-7.3) 08/31/17 05:30 Eosinophils % (Manual) 0 % (0.0-4.3) 08/31/17 05:30 Basophils % (Manual) 0 % (0.0-1.8) 08/31/17 05:30 Metamyelocytes % 6.0 % 08/31/17 05:30 Myelocytes % 1.0 % 08/31/17 05:30 Promyelocytes % 0 % 08/31/17 05:30 Blast Cells % 0 % 08/31/17 05:30 Nucleated RBC % 2.0 % (0.0-0.9) H 08/31/17 05:30 Seg Neutrophils # Expenditure Requisition Clerk 08/19/17 07:37 Seg Neutrophils # Man 18.5 K/mm3 (1.8-7.7) H 08/31/17 05:30 Band Neutrophils # 7.8 K/mm3 08/31/17 05:30 Lymphocytes # (Manual) 0.6 K/mm3 (1.2-5.4) L 08/31/17 05:30 Abs React Lymphs (Man) 0.0 K/mm3 08/31/17 05:30 Monocytes # (Manual) 0.9 K/mm3 (0.0-0.8) H 08/31/17 05:30 Eosinophils # (Manual) 0.0 K/mm3 (0.0-0.4) 08/31/17 05:30 Basophils # (Manual) 0.0 K/mm3 (0.0-0.1) 08/31/17 05:30 Metamyelocytes # 1.8 K/mm3 08/31/17 05:30 Myelocytes # 0.3 K/mm3 08/31/17 05:30 Promyelocytes # 0.0 K/mm3 08/31/17 05:30 Blast Cells # 0.0 K/mm3 08/31/17 05:30 Pathologist Review Not Reportable 08/30/17 05:20 WBC Morphology Not Reportable 08/31/17 05:30 Hypersegmented Neuts Not Reportable 08/31/17 05:30 Hyposegmented Neuts Not Reportable 08/31/17 05:30 Hypogranular Neuts Not Reportable 08/31/17 05:30 Smudge Cells Rare 08/31/17 05:30 Toxic Granulation Not Reportable 08/31/17 05:30 Toxic Vacuolation Not Reportable 08/31/17 05:30 Dohle Bodies Not Reportable 08/31/17 05:30 Pelger-Huet Anomaly Not Reportable 08/31/17 05:30 Ariel Rods Not Reportable 08/31/17 05:30 Platelet Estimate Not Reportable 08/31/17 05:30 Clumped Platelets Not Reportable 08/31/17 05:30 Plt Clumps, EDTA Not Reportable 08/31/17 05:30 Large Platelets Not Reportable 08/31/17 05:30 Giant Platelets Not Reportable 08/31/17 05:30 Platelet Satelliting Not Reportable 08/31/17 05:30 Plt Morphology Comment Not Reportable 08/31/17 05:30 RBC Morphology Not Reportable 08/31/17 05:30 Dimorphic RBCs Not Reportable 08/31/17 05:30 Polychromasia 1+ 08/31/17 05:30 Hypochromasia 1+ 08/31/17 05:30 Poikilocytosis 1+ 08/31/17 05:30 Anisocytosis 2+ 08/31/17 05:30 Microcytosis Not Reportable 08/31/17 05:30 Macrocytosis Not Reportable 08/31/17 05:30 Spherocytes Not Reportable 08/31/17 05:30 Pappenheimer Bodies Not Reportable 08/31/17 05:30 Sickle Cells Not Reportable 08/31/17 05:30 Target Cells Rare 08/31/17 05:30 Tear Drop Cells Not Reportable 08/31/17 05:30 Ovalocytes Not Reportable 08/31/17 05:30 Stomatocytes Few 08/20/17 03:20 Helmet Cells Not Reportable 08/31/17 05:30 Vera-Braman Bodies Not Reportable 08/31/17 05:30 Victoria Rings Not Reportable 08/31/17 05:30 Yusuf Cells Few 08/31/17 05:30 Bite Cells Not Reportable 08/31/17 05:30 Crenated Cell Not Reportable 08/31/17 05:30 Elliptocytes Not Reportable 08/31/17 05:30 Acanthocytes (Spur) Not Reportable 08/31/17 05:30 Rouleaux Not Reportable 08/31/17 05:30 Hemoglobin C Crystals Not Reportable 08/31/17 05:30 Schistocytes Rare 08/31/17 05:30 Malaria parasites Not Reportable 08/31/17 05:30 Jovanni Bodies Not Reportable 08/31/17 05:30 Hem Pathologist Commnt No 08/31/17 05:30 PT 14.9 Sec. (12.2-14.9) 08/28/17 22:30 INR 1.11 (0.87-1.13) 08/28/17 22:30 APTT 28.9 Sec. (24.2-36.6) 08/28/17 13:05 POC ABG pH 7.335 (7.35-7.45) L 08/30/17 03:31 POC ABG pCO2 44.1 (35-45) 08/30/17 03:31 POC ABG pO2 117 (80-105) H 08/30/17 03:31 POC ABG HCO3 23.5 08/30/17 03:31 POC ABG Total CO2 25 08/30/17 03:31 POC ABG O2 Sat 98 08/30/17 03:31 POC ABG Base Excess -2 08/30/17 03:31 VBG pH 7.462 (7.320-7.420) H 08/08/17 14:52 FiO2 50 % 08/30/17 03:31 Sodium 142 mmol/L (137-145) 08/30/17 05:20 Potassium 4.5 mmol/L (3.6-5.0) 08/30/17 05:20 Chloride 101.5 mmol/L (98-107) 08/30/17 05:20 Carbon Dioxide 24 mmol/L (22-30) 08/31/17 05:30 Anion Gap 21 mmol/L 08/31/17 05:30 BUN 62 mg/dL (7-17) H 08/31/17 05:30 Creatinine 2.2 mg/dL (0.7-1.2) H 08/31/17 05:30 Estimated GFR 28 ml/min 08/31/17 05:30 BUN/Creatinine Ratio 28 % 08/31/17 05:30 Glucose 245 mg/dL (65-100) H 08/31/17 05:30 POC Glucose 245 (70-105) H 08/31/17 12:05 Lactic Acid 1.60 mmol/L (0.7-2.0) 08/17/17 11:20 Calcium 8.5 mg/dL (8.4-10.2) 08/31/17 05:30 Phosphorus 2.10 mg/dL (2.5-4.5) L D 08/31/17 05:30 Magnesium 1.60 mg/dL (1.7-2.3) L 08/31/17 05:30 Total Bilirubin 0.50 mg/dL (0.1-1.2) 08/26/17 05:30 Direct Bilirubin 0.2 mg/dL (0-0.2) 08/08/17 14:11 Indirect Bilirubin 0.3 mg/dL 08/08/17 14:11 AST 135 units/L (5-40) H 08/26/17 05:30 ALT 49 units/L (7-56) 08/26/17 05:30 Alkaline Phosphatase 211 units/L (35-129) H 08/26/17 05:30 Ammonia 25.0 umol/L (25-60) 08/08/17 14:52 Troponin T 0.132 ng/mL (0.00-0.029) H* 08/09/17 13:25 C-Reactive Protein 19.10 mg/dL (0.00-1.30) H 08/29/17 12:30 NT-Pro-B Natriuret Pep 6156 pg/mL (0-900) H 08/08/17 14:11 Total Protein 4.8 g/dL (6.3-8.2) L 08/26/17 05:30 Albumin 2.0 g/dL (3.9-5) L 08/26/17 05:30 Albumin/Globulin Ratio 0.7 % 08/26/17 05:30 Triglycerides 62 mg/dL (2-149) 08/08/17 21:23 Cholesterol 91 mg/dL (50-199) 08/08/17 21:23 LDL Cholesterol Direct 53 mg/dL (50-130) 08/08/17 21:23 HDL Cholesterol 26 mg/dL (40-59) L 08/08/17 21:23 Cholesterol/HDL Ratio 3.50 % 08/08/17 21:23 Amylase 45 units/L (27-131) 08/16/17 09:50 Lipase 34 units/L (13-60) 08/16/17 09:50 TSH 6.580 mlU/mL (0.270-4.200) H 08/08/17 14:22 Free T4 1.46 ng/dL (0.76-1.46) 08/08/17 14:22 Total Cortisol 30.1 mcg/dL () 08/13/17 06:14 Urine Color Yellow (Yellow) 08/08/17 20:15 Urine Turbidity Turbid (Clear) 08/08/17 20:15 Urine pH 8.0 (5.0-7.0) H 08/08/17 20:15 Ur Specific [place] 1.015 (1.003-1.030) 08/08/17 20:15 Urine Protein 100 mg/dl mg/dL (Negative) 08/08/17 20:15 Urine Glucose (UA) Neg mg/dL (Negative) 08/08/17 20:15 Urine Ketones Neg mg/dL (Negative) 08/08/17 20:15 Urine Blood Mod (Negative) 08/08/17 20:15 Urine Nitrite Neg (Negative) 08/08/17 20:15 Urine Bilirubin Neg (Negative) 08/08/17 20:15 Urine Urobilinogen < 2.0 mg/dL (<2.0) 08/08/17 20:15 Ur Leukocyte Esterase Lg (Negative) 08/08/17 20:15 Urine WBC (Auto) 24.0 /HPF (0.0-6.0) H 08/08/17 20:15 Urine RBC (Auto) 3.0 /HPF (0.0-6.0) 08/08/17 20:15 U Epithel Cells (Auto) 3.0 /HPF (0-13.0) 08/08/17 20:15 Urine Bacteria (Auto) 4+ /HPF (Negative) 08/08/17 20:15 Urine Mucus 3+ /HPF 08/08/17 20:15 Fluid Type Peritoneal 08/08/17 18:18 Fluid Color Straw 08/08/17 18:18 Fluid Appearance Clear 08/08/17 18:18 Fluid pH 7.74 08/08/17 18:18 Fluid WBC 4 /mm3 08/08/17 18:18 Fluid RBC 1 /mm3 08/08/17 18:18 Fluid Seg Neutrophils 12 % 08/08/17 18:18 Fluid Lymphocytes 0 % 08/08/17 18:18 Fluid Reactive Lymphs 0 % 08/08/17 18:18 Fluid Monocytes 1 % 08/08/17 18:18 Fluid Eosinophils 0 % 08/08/17 18:18 Fluid Basophils 0 % 08/08/17 18:18 Fluid Glucose 315 mg/dL (40-70) H 08/08/17 18:18 Random Vancomycin 19.5 ug/mL (0-40.0) 08/22/17 03:40 Hep Bs Antigen Non-reactive (Negative) 08/22/17 03:40 Hepatitis C Antibody Non-reactive (NonReactive) 08/22/17 03:40 Miscellaneous Test Flexitest 1 H 08/29/17 12:30 Blood Type O POSITIVE 08/31/17 11:56 Antibody Screen TNR 08/31/17 11:56 VAN Antibody Screen Negative 08/31/17 11:56 Crossmatch See Detail 08/31/17 11:56
[2017-08-31] MEDS ORDERED: ZEMURON IV ONE ×2 (14:26→17:10)
[2017-08-31] MEDS ORDERED: DILAUDID ONE (14:26)
[2017-08-31] MEDS ORDERED: NACL 0.9% 1000 ML 1,000 ML ONE (15:15)
[2017-08-31] MEDS ORDERED: NACL 0.9% IR ONE ×2 (15:33)
[2017-08-31] MEDS ORDERED: BACITRACIN IR ONE (15:33)
--- NOTE | 2017-08-31 18:02 | Operative Report ---
Operative Report Operative Report: Dictation # [id number] PROCEDURE: 1. EX LAP 2. ABDOMINAL WASH OUT 3. ABDOMINAL CLOSURE SURGEON: ALEN NOGUERA MD C0-SURGEON: SHALONDA NUGENT MD PRE-OP DX: ABDOMINAL WOUND DEHISCENCE POST OP DX: SAME COMPLICATIONS: NONE ANESTHESIA: GETA DATE: 08/31/17
--- NOTE | 2017-08-31 18:21 | Post Anesthesia Evaluation ---
- Post Anesthesia Evaluation Patient Participated: No Airway Patent: Yes Stable Respiratory Function: Yes Temp > 96.8F: Yes Pain Manageable: Yes Adequeate Hydration: Yes Patient on Ventilator: Yes
--- NOTE | 2017-08-31 19:10 | Operative Report ---
SURGEON: Carla Chamorro MD AREA COUNSELOR: Suki Rasmussen MD PREOPERATIVE DIAGNOSIS: Abdominal wall dehiscence. POSTOPERATIVE DIAGNOSIS: Abdominal wall dehiscence. PROCEDURE PERFORMED: Exploratory laparotomy, abdominal washout, closure of abdominal wall. COMPLICATIONS: None. ESTIMATED BLOOD LOSS: Minimal. FINDINGS: Superior dehiscence of her anterior abdominal wall wound with no signs of active perforation or nonviable bowel, stomach, or colon. SPECIMENS: None. INDICATIONS: The patient is a 62-year-old female, who presented several weeks ago with sepsis. About a week later, she continued to deteriorate. Two weeks ago, she had exploratory laparotomy done, which showed a gastric perforation, although the exact location cannot be found; however, there was noted to be barium extraluminally, which is consistent with some type of stomach perforation. In the last 2 weeks, she has gone in and out of the ICU, needing pressor support and ventilator support with a septic picture. She also recently had a GI bleed, which has clinically settled out. However, she was too stable for colonoscopy, so etiology is unclear, but she has not had any bloody bowel movements in over 3 days. This morning upon checking her abdominal dressing of which over the last couple of days, she has had increased serosanguineous fluid from the midline. It was noted that the superior portion was dehisced she was urgently taken to the operating room. Her daughter signed the informed consent. DESCRIPTION OF PROCEDURE: The patient was brought into OR suite. She was in supine position, transferred to the bed. She was already intubated. General anesthesia was induced. SCDs were placed on her left leg only as her right leg had a wound on the calf. The patient's abdomen was then prepped and draped in sterile fashion. The kelli were removed. The previous fascial sutures were also removed. The proximal 3 to 4 cm superior in the wound, were noticed to be dehisced; however, the remainder was intact with good fascia; however, it was decided at that time to remove the entire previous closure, debride the edges of the wound and reapproximate with running suture and external retention sutures using nylon. There was noted to be some murky fluid in the fatty tissue in the inferior portion of the wound. This was irrigated free. She had minimal scar tissue likely due to her malnutrition status. All of her small bowel, colon and stomach were viable. There was no bile, succus or active bleeding noted, just some ascitic fluid and serosanguineous fluid. The abdomen was irrigated with bacitracin that was infused into normal saline. The gastrostomy tube was found to be in place as well as her MERVIN drain, which was left intact. Her fascia was then closed with a #1 running PDS from inferior and superior and tied in the middle. She had interrupted 0 nylons as external retention sutures that went from the skin all way to the rectus muscle, fascia and peritoneum and out on both sides and was secured with rubber bolsters. Iodoform gauze was used to pack in between the retention sutures. This was covered by a sterile dressing. The patient was taken off of anesthesia, she remained intubated and she was taken back to the recovery room. All counts were correct. JOB# [id number] MARTHA/ISMAEL MENDES
[2017-08-31 19:21] LABS: Albumin 1.8 g/dL (3.9-5); Albumin/Globulin Ratio 0.8 %; Bilirubin,Total 0.8 mg/dL (0.1-1.2); Calcium 8.5 mg/dL (8.4-10.2); Chloride 98.1 mmol/L (98-107); Magnesium 1.5 mg/dL (1.7-2.3); Phosphorous 2.4 mg/dL (2.5-4.5); Total Protein 4.1 g/dL (6.3-8.2)
[2017-08-31 19:40] LABS: Hematocrit 27.9 % (30.3-42.9); Hemoglobin 8.8 gm/dl (10.1-14.3); Mean Corpuscular HGB Conc 31 % (30-34); Mean Corpuscular Hemoglobin 28 pg (28-32); Mean Corpuscular Volume 88 fl (79-97); Platelet Count 299 K/mm3 (140-440); Red Blood Count 3.19 M/mm3 (3.65-5.03)
[2017-08-31 19:46] LABS: Red Cell Distribution Width 24.9 % (13.2-15.2); White Blood Count 32.5 K/mm3 (4.5-11.0)
[2017-08-31 19:49] LABS: INR 1.13 (0.87-1.13)
[2017-08-31 19:50] LABS: Partial Thromboplastin Time 28.7 Sec. (24.2-36.6)
[2017-08-31] MEDS ORDERED: TPN ADULT 1,800 ML IV SCH (20:00)
[2017-08-31 20:15] LABS: Potassium 4.3 mmol/L (3.6-5.0)
[2017-08-31 20:23] LABS: Anisocytosis 2+; Basophils % (Manual) 0 % (0.0-1.8); Blastocytes % (Manual) 0 %; Eosinophils % (Manual) 0 % (0.0-4.3)
[2017-08-31 20:28] LABS: Hypochromasia 2+
[2017-08-31 20:29] LABS: Spherocytes Few
[2017-08-31 20:30] LABS: Diff Status Complete; Platelet Estimate Consistent w Auto; Poikilocytosis Few
--- NOTE | 2017-09-01 00:45 | Progress Note ---
Assessment and Plan - Patient Problems (1) Leukocytosis Current Visit: Yes Status: Acute Qualifiers: Leukocytosis type: L Plan to address problem: See notes above. make sure that PD access is clean also. see notes. Probably infection from the infected PD catheter. improving. back up again. up/down (2) Anemia Current Visit: Yes Status: Acute Qualifiers: Anemia type: A Iron deficiency anemia type: I Vitamin B12 deficiency anemia type: V Folate deficiency anemia type: F Bone marrow failure anemia type: B Hemolytic anemia type: H Other causes of anemia: O Chronic kidney disease stage: C Plan to address problem: see notes , monitor labs,. see notes above. continue to monitor labs with you. blood transfusion. S/P replacement transfusion. fair. Subjective Date of service: 08/31/17 Principal diagnosis: Interval history: Patient seen today/examined, labs reviewed, case d/w she, and family.complaints of abdominal pain. Patient resting in bed in the ICU, post vascular procedure. labs reviewed, Reactive thrombocytosis, anemia of CD, leukocytosis from infection vs inflamatory process. Patient seen/examined, in bed in the ICU, on the vent post surgery.Labs reviewed , notes reviewed. will continue to monitor labs/patient with you. Replacement transfusion, if /when indicated. patient seen/examined, SBP75, on pressors., lethargic, on the vent, labs reviewed, wbc 39,000 Patient seen/examined, case reviewed, d/w her sister at the bed side. Patient seen/examined, labs reviewed, notes reviewed. severe septic shock from infected PD catheter The high wbc is all infection related. H?H low, and may get replacement transfusion with the next HD. Prognosis remain quite poor. Patient seen/examined, extubated, now on V Mask. labs reviewed. patient seen/examined, resting in bed, still some what lethargic . labs reviewed. Patient seen/examined, resting in bed., some difficulty with breathing./ lethargic. patient seen/examined, resting in bed, looked much better labs reviewed, and fair over all. Patient seen/examined, resting in bed, labs reviewed, case d/w her. Patient seen/examined, resting in bed on BIPAP., labs reviewed. patient seen/examined, resting in bed, on Bipap.labs reviewed, fairly stable. Patient seen today, resting in bed, labs reviewed, H/H low, and transfusion already ordered. Patient seen/examined, resting in bed, transfered back to the unit, due to resp failure. She is now on venting mask. had blood replacement done. Patient seen/examined in the ICU.labs reviewed. patient intubated this am. patient resting in bed.no new issues. Objective - Constitutional Vitals: Vital Signs - 12hr 08/31/17 08/31/17 08/31/17 13:00 13:30 13:57 Temperature Pulse Rate 81 77 83 Respiratory 18 20 Rate Blood Pressure 108/55 118/55 118/55 O2 Sat by Pulse 100 100 100 Oximetry O2 Sat by Pulse Oximetry [ Anterior Bilateral Throughout] 08/31/17 08/31/17 08/31/17 14:00 14:30 18:06 Temperature 98.4 F Pulse Rate 88 99 H Respiratory 20 20 Rate Blood Pressure 118/55 104/55 142/58 O2 Sat by Pulse 99 100 100 Oximetry O2 Sat by Pulse Oximetry [ Anterior Bilateral Throughout] 08/31/17 08/31/17 08/31/17 18:10 18:15 18:20 Temperature Pulse Rate 98 H 95 H 97 H Respiratory 20 20 20 Rate Blood Pressure 142/58 161/78 159/83 O2 Sat by Pulse 100 98 98 Oximetry O2 Sat by Pulse Oximetry [ Anterior Bilateral Throughout] 08/31/17 08/31/17 08/31/17 18:25 18:30 18:45 Temperature Pulse Rate 97 H 96 H 97 H Respiratory 20 20 20 Rate Blood Pressure 152/76 154/78 149/74 O2 Sat by Pulse 100 99 97 Oximetry O2 Sat by Pulse Oximetry [ Anterior Bilateral Throughout] 08/31/17 08/31/17 08/31/17 19:00 19:15 19:40 Temperature 97.4 F L 97.9 F Pulse Rate 99 H 98 H 94 H Respiratory 20 20 20 Rate Blood Pressure 151/51 155/88 122/96 O2 Sat by Pulse 100 100 Oximetry O2 Sat by Pulse 100 Oximetry [ Anterior Bilateral Throughout] 08/31/17 08/31/17 08/31/17 19:45 20:00 20:15 Temperature 97.9 F Pulse Rate 96 H 96 H 99 H Respiratory 25 H Rate Blood Pressure 109/80 119/62 114/61 O2 Sat by Pulse 100 100 Oximetry O2 Sat by Pulse Oximetry [ Anterior Bilateral Throughout] 08/31/17 08/31/17 08/31/17 20:16 20:30 20:45 Temperature Pulse Rate 99 H 104 H 107 H Respiratory 15 15 Rate Blood Pressure 90/74 117/63 110/62 O2 Sat by Pulse 98 100 Oximetry O2 Sat by Pulse Oximetry [ Anterior Bilateral Throughout] 08/31/17 08/31/17 08/31/17 20:46 21:00 21:15 Temperature Pulse Rate 104 H 107 H 106 H Respiratory 21 14 Rate Blood Pressure 87/71 89/60 120/71 O2 Sat by Pulse 100 94 Oximetry O2 Sat by Pulse Oximetry [ Anterior Bilateral Throughout] 08/31/17 08/31/17 08/31/17 21:16 21:30 21:45 Temperature Pulse Rate 111 H 105 H 110 H Respiratory 11 L 14 Rate Blood Pressure 54/30 89/53 111/67 O2 Sat by Pulse 100 100 Oximetry O2 Sat by Pulse Oximetry [ Anterior Bilateral Throughout] 08/31/17 08/31/17 08/31/17 21:46 22:00 22:15 Temperature Pulse Rate 102 H 103 H 101 H Respiratory 17 16 Rate Blood Pressure 88/72 112/68 111/68 O2 Sat by Pulse 100 82 L Oximetry O2 Sat by Pulse Oximetry [ Anterior Bilateral Throughout] 08/31/17 08/31/17 09/01/17 22:16 22:30 00:00 Temperature 98.6 F 98.6 F Pulse Rate 102 H 102 H Respiratory 15 20 Rate Blood Pressure 88/72 95/71 O2 Sat by Pulse 100 100 Oximetry O2 Sat by Pulse 99 Oximetry [ Anterior Bilateral Throughout] General appearance: Present: severe distress - EENT Ears: bilateral: normal - Neck Neck: supple, normal ROM - Respiratory Respiratory: bilateral: diminished (on vent) - Breasts Breasts: deferred - Cardiovascular Rhythm: regular Heart Sounds: Present: S1 & S2. Absent: gallop, rub Extremities: pulses intact, No edema, normal color, Full ROM - Gastrointestinal General gastrointestinal: Present: soft, non-tender, non-distended, normal bowel sounds Rectal Exam: deferred - Genitourinary Female genitourinary: deferred - Integumentary Integumentary: clear, warm, dry - Musculoskeletal Musculoskeletal: 1, strength equal bilaterally - Neurologic Neurologic: moves all extremities - Psychiatric Psychiatric: memory intact, appropriate mood/affect, intact judgment & insight - Labs CBC & Chem 7: 08/31/17 18:14 08/31/17 18:14 Labs: Abnormal lab results 08/28/17 08/30/17 08/31/17 Range/Units 11:56 12:18 05:30 WBC (4.5-11.0) K/mm3 RBC (3.65-5.03) M/mm3 Hgb (10.1-14.3) gm/dl Hct (30.3-42.9) % RDW (13.2-15.2) % Lymphocytes % (Manual) (13.4-35.0) % Monocytes % (Manual) (0.0-7.3) % Nucleated RBC % (0.0-0.9) % Seg Neutrophils # Man (1.8-7.7) K/mm3 Lymphocytes # (Manual) (1.2-5.4) K/mm3 Monocytes # (Manual) (0.0-0.8) K/mm3 PT (12.2-14.9) Sec. Sodium (137-145) mmol/L Carbon Dioxide (22-30) mmol/L BUN 62 H (7-17) mg/dL Creatinine 2.2 H (0.7-1.2) mg/dL Glucose 245 H (65-100) mg/dL POC Glucose 273 H (70-105) Phosphorus 2.10 L D (2.5-4.5) mg/dL Magnesium 1.60 L (1.7-2.3) mg/dL AST (5-40) units/L ALT (7-56) units/L Alkaline Phosphatase (35-129) units/L Total Protein (6.3-8.2) g/dL Albumin (3.9-5) g/dL Crossmatch See Detail 08/31/17 08/31/17 08/31/17 Range/Units 05:30 05:32 11:56 WBC 29.9 H (4.5-11.0) K/mm3 RBC 2.89 L (3.65-5.03) M/mm3 Hgb 8.2 L (10.1-14.3) gm/dl Hct 24.7 L D (30.3-42.9) % RDW 24.4 H (13.2-15.2) % Lymphocytes % (Manual) 2.0 L (13.4-35.0) % Monocytes % (Manual) (0.0-7.3) % Nucleated RBC % 2.0 H (0.0-0.9) % Seg Neutrophils # Man 18.5 H (1.8-7.7) K/mm3 Lymphocytes # (Manual) 0.6 L (1.2-5.4) K/mm3 Monocytes # (Manual) 0.9 H (0.0-0.8) K/mm3 PT (12.2-14.9) Sec. Sodium (137-145) mmol/L Carbon Dioxide (22-30) mmol/L BUN (7-17) mg/dL Creatinine (0.7-1.2) mg/dL Glucose (65-100) mg/dL POC Glucose 257 H (70-105) Phosphorus (2.5-4.5) mg/dL Magnesium (1.7-2.3) mg/dL AST (5-40) units/L ALT (7-56) units/L Alkaline Phosphatase (35-129) units/L Total Protein (6.3-8.2) g/dL Albumin (3.9-5) g/dL Crossmatch See Detail 08/31/17 08/31/17 08/31/17 Range/Units 12:05 18:14 18:14 WBC 32.5 H (4.5-11.0) K/mm3 RBC 3.19 L (3.65-5.03) M/mm3 Hgb 8.8 L (10.1-14.3) gm/dl Hct 27.9 L (30.3-42.9) % RDW 24.9 H (13.2-15.2) % Lymphocytes % (Manual) 1.0 L (13.4-35.0) % Monocytes % (Manual) 12.0 H (0.0-7.3) % Nucleated RBC % 1.0 H (0.0-0.9) % Seg Neutrophils # Man 13.3 H (1.8-7.7) K/mm3 Lymphocytes # (Manual) 0.3 L (1.2-5.4) K/mm3 Monocytes # (Manual) 3.9 H (0.0-0.8) K/mm3 PT (12.2-14.9) Sec. Sodium 136 L (137-145) mmol/L Carbon Dioxide 21 L (22-30) mmol/L BUN 69 H (7-17) mg/dL Creatinine 2.3 H (0.7-1.2) mg/dL Glucose 227 H (65-100) mg/dL POC Glucose 245 H (70-105) Phosphorus 2.40 L (2.5-4.5) mg/dL Magnesium 1.50 L (1.7-2.3) mg/dL AST 143 H (5-40) units/L ALT 114 H (7-56) units/L Alkaline Phosphatase 267 H (35-129) units/L Total Protein 4.1 L (6.3-8.2) g/dL Albumin 1.8 L (3.9-5) g/dL Crossmatch 08/31/17 08/31/17 Range/Units 18:15 23:53 WBC (4.5-11.0) K/mm3 RBC (3.65-5.03) M/mm3 Hgb (10.1-14.3) gm/dl Hct (30.3-42.9) % RDW (13.2-15.2) % Lymphocytes % (Manual) (13.4-35.0) % Monocytes % (Manual) (0.0-7.3) % Nucleated RBC % (0.0-0.9) % Seg Neutrophils # Man (1.8-7.7) K/mm3 Lymphocytes # (Manual) (1.2-5.4) K/mm3 Monocytes # (Manual) (0.0-0.8) K/mm3 PT 15.1 H (12.2-14.9) Sec. Sodium (137-145) mmol/L Carbon Dioxide (22-30) mmol/L BUN (7-17) mg/dL Creatinine (0.7-1.2) mg/dL Glucose (65-100) mg/dL POC Glucose 301 H (70-105) Phosphorus (2.5-4.5) mg/dL Magnesium (1.7-2.3) mg/dL AST (5-40) units/L ALT (7-56) units/L Alkaline Phosphatase (35-129) units/L Total Protein (6.3-8.2) g/dL Albumin (3.9-5) g/dL Crossmatch
[2017-09-01] MEDS: DUONEB *Not for PRN Use IH SCH ×4 (02:36→19:41)
[2017-09-01] MEDS: LEVOPHED 8 MG in NACL 0.9% 250ML 242 ML IV SCH ×3 (03:12→19:19)
[2017-09-01] MEDS: fentaNYL DRIP Premix 2,000 MCG/100 ML BAG IV SCH ×3 (04:01→19:00)
[2017-09-01 06:19] LABS: ABG Base Excess -1.1 mmol/L (-2.0-3.0); ABG HCO3 24.5 mmol/L (20.0-26.0); ABG Oxygen Saturation 97.3 % (95.0-99.0); ABG PCO2 45.7 mm Hg; ABG PH 7.348 pH Units (7.350-7.450); ABG PO2 70.2 mm Hg (80.0-90.0)
[2017-09-01 07:33] LABS: Hematocrit 24.8 % (30.3-42.9); Hemoglobin 7.8 gm/dl (10.1-14.3); Mean Corpuscular HGB Conc 31 % (30-34); Mean Corpuscular Hemoglobin 27 pg (28-32); Mean Corpuscular Volume 87 fl (79-97); Platelet Count 288 K/mm3 (140-440); Red Blood Count 2.85 M/mm3 (3.65-5.03)
[2017-09-01 07:40] LABS: Red Cell Distribution Width 23.9 % (13.2-15.2); White Blood Count 33.9 K/mm3 (4.5-11.0)
[2017-09-01 07:55] LABS: Albumin 1.7 g/dL (3.9-5); Albumin/Globulin Ratio 0.7 %; Bilirubin,Total 0.8 mg/dL (0.1-1.2); Calcium 8.6 mg/dL (8.4-10.2); Chloride 106.6 mmol/L (98-107); Magnesium 1.6 mg/dL (1.7-2.3); Phosphorous 1.7 mg/dL (2.5-4.5); Potassium 3.6 mmol/L (3.6-5.0); Total Protein 4.2 g/dL (6.3-8.2)
[2017-09-01 08:42] LABS: Basophils % (Manual) 0 % (0.0-1.8); Blastocytes % (Manual) 0 %; Eosinophils % (Manual) 0 % (0.0-4.3)
[2017-09-01 08:43] LABS: Anisocytosis 2+; Diff Status Complete; Elliptocytes Rare; Giant Platelets Few; Ovalocytes 1+; Polychromasia Few; Stomatocytes Rare; Target Cells Rare
--- NOTE | 2017-09-01 08:48 | Progress Note ---
Assessment and Plan - Patient Problems (1) ESRD (end stage renal disease) on dialysis Current Visit: Yes Status: Acute Plan to address problem: Continue HD on MWF and Isolated UF on TTS. Patient is on TPN. (2) Hyperkalemia Current Visit: Yes Status: Acute Plan to address problem: K level is better. (3) Anemia Current Visit: No Status: Chronic Qualifiers: Anemia type: due to chronic kidney disease Iron deficiency anemia type: I Vitamin B12 deficiency anemia type: V Folate deficiency anemia type: F Bone marrow failure anemia type: B Hemolytic anemia type: H Other causes of anemia: O Chronic kidney disease stage: on chronic dialysis Qualified Code(s ): N18.6 - End stage renal disease; D63.1 - Anemia in chronic kidney disease; Z99.2 - Dependence on renal dialysis Plan to address problem: Epogen. S/p PRBC. (4) Hypotension Current Visit: Yes Status: Chronic Qualifiers: Hypotension type: H Trimester: T Plan to address problem: On Levophed. (5) Leukocytosis Current Visit: Yes Status: Acute Qualifiers: Leukocytosis type: unspecified Qualified Code(s): D72.829 - Elevated white blood cell count, unspecified (6) Acute respiratory failure with hypoxemia Current Visit: Yes Status: Acute Plan to address problem: On the vent. (7) Sepsis Current Visit: Yes Status: Acute Qualifiers: Sepsis type: S Subjective Date of service: 09/01/17 Principal diagnosis: Interval history: Patient was seen and examined at the bedside. Patient remain intubated. Objective - Vital Signs Vital signs: Vital Signs - 12hr 08/31/17 08/31/17 08/31/17 21:00 21:15 21:16 Temperature Pulse Rate 107 H 106 H 111 H Pulse Rate [ Anterior Bilateral Throughout] Respiratory 14 11 L Rate Respiratory Rate [Anterior Bilateral Throughout] Blood Pressure 89/60 120/71 54/30 O2 Sat by Pulse 94 100 Oximetry O2 Sat by Pulse Oximetry [ Anterior Bilateral Throughout] 08/31/17 08/31/17 08/31/17 21:30 21:45 21:46 Temperature Pulse Rate 105 H 110 H 102 H Pulse Rate [ Anterior Bilateral Throughout] Respiratory 14 17 Rate Respiratory Rate [Anterior Bilateral Throughout] Blood Pressure 89/53 111/67 88/72 O2 Sat by Pulse 100 100 Oximetry O2 Sat by Pulse Oximetry [ Anterior Bilateral Throughout] 08/31/17 08/31/17 08/31/17 22:00 22:15 22:16 Temperature Pulse Rate 103 H 101 H 102 H Pulse Rate [ Anterior Bilateral Throughout] Respiratory 16 15 Rate Respiratory Rate [Anterior Bilateral Throughout] Blood Pressure 112/68 111/68 88/72 O2 Sat by Pulse 82 L 100 Oximetry O2 Sat by Pulse Oximetry [ Anterior Bilateral Throughout] 08/31/17 08/31/17 08/31/17 22:30 22:34 22:46 Temperature 98.6 F Pulse Rate 102 H 103 H 99 H Pulse Rate [ Anterior Bilateral Throughout] Respiratory 20 21 18 Rate Respiratory Rate [Anterior Bilateral Throughout] Blood Pressure 95/71 95/71 93/71 O2 Sat by Pulse 100 100 100 Oximetry O2 Sat by Pulse 99 Oximetry [ Anterior Bilateral Throughout] 08/31/17 08/31/17 08/31/17 23:00 23:16 23:30 Temperature Pulse Rate 102 H 99 H 96 H Pulse Rate [ Anterior Bilateral Throughout] Respiratory 15 17 18 Rate Respiratory Rate [Anterior Bilateral Throughout] Blood Pressure 93/71 160/124 59/37 O2 Sat by Pulse 100 100 Oximetry O2 Sat by Pulse Oximetry [ Anterior Bilateral Throughout] 08/31/17 09/01/17 09/01/17 23:46 00:00 00:16 Temperature 98.6 F Pulse Rate 95 H 96 H 93 H Pulse Rate [ Anterior Bilateral Throughout] Respiratory 19 18 21 Rate Respiratory Rate [Anterior Bilateral Throughout] Blood Pressure 68/33 68/33 157/125 O2 Sat by Pulse 100 100 Oximetry O2 Sat by Pulse Oximetry [ Anterior Bilateral Throughout] 09/01/17 09/01/17 09/01/17 00:30 00:40 00:45 Temperature Pulse Rate 92 H 94 H 89 Pulse Rate [ Anterior Bilateral Throughout] Respiratory 14 17 Rate Respiratory Rate [Anterior Bilateral Throughout] Blood Pressure 157/125 71/45 71/45 O2 Sat by Pulse 100 100 100 Oximetry O2 Sat by Pulse Oximetry [ Anterior Bilateral Throughout] 09/01/17 09/01/17 09/01/17 01:00 01:16 01:30 Temperature Pulse Rate 92 H 92 H 93 H Pulse Rate [ Anterior Bilateral Throughout] Respiratory 14 17 19 Rate Respiratory Rate [Anterior Bilateral Throughout] Blood Pressure 77/46 77/46 104/35 O2 Sat by Pulse 100 97 100 Oximetry O2 Sat by Pulse Oximetry [ Anterior Bilateral Throughout] 09/01/17 09/01/17 09/01/17 01:46 02:00 02:16 Temperature Pulse Rate 93 H 113 H 102 H Pulse Rate [ Anterior Bilateral Throughout] Respiratory 15 14 21 Rate Respiratory Rate [Anterior Bilateral Throughout] Blood Pressure 123/96 132/79 O2 Sat by Pulse 100 100 100 Oximetry O2 Sat by Pulse Oximetry [ Anterior Bilateral Throughout] 09/01/17 09/01/17 09/01/17 02:30 02:36 02:42 Temperature Pulse Rate 106 H Pulse Rate [ 99 H 95 H Anterior Bilateral Throughout] Respiratory 12 Rate Respiratory 20 20 Rate [Anterior Bilateral Throughout] Blood Pressure 131/103 O2 Sat by Pulse 100 Oximetry O2 Sat by Pulse Oximetry [ Anterior Bilateral Throughout] 09/01/17 09/01/17 09/01/17 02:45 03:00 03:15 Temperature Pulse Rate 92 H 92 H 92 H Pulse Rate [ Anterior Bilateral Throughout] Respiratory 17 20 20 Rate Respiratory Rate [Anterior Bilateral Throughout] Blood Pressure 135/73 133/66 129/64 O2 Sat by Pulse 100 100 100 Oximetry O2 Sat by Pulse Oximetry [ Anterior Bilateral Throughout] 09/01/17 09/01/17 09/01/17 03:30 03:45 03:56 Temperature 98.9 F Pulse Rate 90 90 Pulse Rate [ Anterior Bilateral Throughout] Respiratory 19 20 Rate Respiratory Rate [Anterior Bilateral Throughout] Blood Pressure 118/66 124/59 O2 Sat by Pulse 100 100 Oximetry O2 Sat by Pulse Oximetry [ Anterior Bilateral Throughout] 09/01/17 09/01/17 09/01/17 04:00 04:15 04:30 Temperature Pulse Rate 84 86 85 Pulse Rate [ Anterior Bilateral Throughout] Respiratory 20 20 20 Rate Respiratory Rate [Anterior Bilateral Throughout] Blood Pressure 124/62 125/60 122/58 O2 Sat by Pulse 100 100 100 Oximetry O2 Sat by Pulse Oximetry [ Anterior Bilateral Throughout] 09/01/17 09/01/17 09/01/17 04:45 05:00 05:15 Temperature Pulse Rate 85 85 84 Pulse Rate [ Anterior Bilateral Throughout] Respiratory 20 20 20 Rate Respiratory Rate [Anterior Bilateral Throughout] Blood Pressure 122/62 127/60 125/69 O2 Sat by Pulse 100 100 100 Oximetry O2 Sat by Pulse Oximetry [ Anterior Bilateral Throughout] 09/01/17 09/01/17 09/01/17 05:16 05:30 05:45 Temperature Pulse Rate 84 86 87 Pulse Rate [ Anterior Bilateral Throughout] Respiratory 20 20 Rate Respiratory Rate [Anterior Bilateral Throughout] Blood Pressure 125/69 113/57 122/59 O2 Sat by Pulse 100 100 100 Oximetry O2 Sat by Pulse Oximetry [ Anterior Bilateral Throughout] 09/01/17 09/01/17 09/01/17 06:00 06:15 06:30 Temperature Pulse Rate 87 84 84 Pulse Rate [ Anterior Bilateral Throughout] Respiratory 20 20 20 Rate Respiratory Rate [Anterior Bilateral Throughout] Blood Pressure 118/61 121/59 131/64 O2 Sat by Pulse 100 100 100 Oximetry O2 Sat by Pulse Oximetry [ Anterior Bilateral Throughout] 09/01/17 09/01/17 09/01/17 06:45 07:00 07:15 Temperature Pulse Rate 82 84 85 Pulse Rate [ Anterior Bilateral Throughout] Respiratory 20 20 20 Rate Respiratory Rate [Anterior Bilateral Throughout] Blood Pressure 129/66 139/67 131/67 O2 Sat by Pulse 100 100 100 Oximetry O2 Sat by Pulse Oximetry [ Anterior Bilateral Throughout] 09/01/17 09/01/17 09/01/17 07:30 07:45 08:00 Temperature 98.4 F Pulse Rate 84 85 85 Pulse Rate [ Anterior Bilateral Throughout] Respiratory 17 19 20 Rate Respiratory Rate [Anterior Bilateral Throughout] Blood Pressure 119/65 124/66 109/51 O2 Sat by Pulse 100 100 100 Oximetry O2 Sat by Pulse Oximetry [ Anterior Bilateral Throughout] 09/01/17 08:15 Temperature Pulse Rate 86 Pulse Rate [ Anterior Bilateral Throughout] Respiratory 15 Rate Respiratory Rate [Anterior Bilateral Throughout] Blood Pressure 112/58 O2 Sat by Pulse 100 Oximetry O2 Sat by Pulse Oximetry [ Anterior Bilateral Throughout] - General Appearance General appearance: well-developed, appears stated age, obese, sedated on ventilator (FiO2 45%), intubated, other (right groin hemodialysis catheter) EENT: ATNC, PERRL, mucous membranes dry Neck: supple Respiratory: Present: Clear to Ascultation Cardiology: regular, S1S2, no murmurs Gastrointestinal: normoactive bowel sounds, obese, other (PEG tube abd drain noted) Integumentary: other (right leg covered with dressing) Neurologic: other (opens eyes) Musculoskeletal: other (2+ edema of both LEs noted) - Lab 09/01/17 05:00 09/01/17 05:00 Most recent lab results ABG pH 7.348 pH Units (7.350-7.450) L 09/01/17 05:20 ABG pCO2 45.7 mm Hg 09/01/17 05:20 ABG pO2 70.2 mm Hg (80.0-90.0) L 09/01/17 05:20 ABG HCO3 24.5 mmol/L (20.0-26.0) 09/01/17 05:20 ABG O2 Saturation 97.3 % (95.0-99.0) 09/01/17 05:20 Calcium 8.6 mg/dL (8.4-10.2) 09/01/17 05:00 Phosphorus 1.70 mg/dL (2.5-4.5) L D 09/01/17 05:00 Magnesium 1.60 mg/dL (1.7-2.3) L 09/01/17 05:00
[2017-09-01] MEDS: DILAUDID IV PRN ×2 (09:48→13:48)
[2017-09-01] MEDS: PROTONIX IV SCH ×4 (10:12→22:13)
[2017-09-01] MEDS: LEVEMIR SUB-Q SCH (10:12)
[2017-09-01] MEDS: MERREM 1,000 MG in NACL 0.9% 100 ML IV SCH (10:14)
--- NOTE | 2017-09-01 10:29 | Progress Note ---
Assessment and Plan Assessment and plan: 62 YO Female with MO, ESRD-PD (with PD cath in place )(Daily), HTN, OA, Ischemic Cardiomyopathy currently on Milrinone, Chronic Pain who came to ED with lightheaded and syncope, she c/o abdomnal pain x 2 days, was found to have hypotension, septic shock and intra-abdominal abscess. Acute hypoxic respiratory failure on MV < 96 hours continue ventilator Activity rectal bleeding with severe acute blood loss anemia -EGD showed small gastric ulcer -sp multiple transfusions -- GI consult appreciated - Patient had CTA of abdomen and pelvis no active bleeding - transfuse to keep Hg above 8 given septic shock ESRD -continue HD per renal per femoral HD cath -needs perm cath when improved Septic shock. - continue IV pressors Sepsis secondary to peritonitis, Intra abdominal abscess and Bowel obstruction - Patient had completed 14 days of meropenem and diflucan - Patient restarted with IV vancomycin, meropenem and micafungin, ID input appreciated - she has had the following procedures 08/31: Ex lap with abdominal wash out and closure 08/17: Ex lap with G tube placement, EGD, abdominal wash out and removal of PD Cath Ulcerative esophagitis/small gastric ulcer on EGD - IV pantoprazole Severe Protein calorie malnutrition - Continue with TPN Sacral and lower extremity wound, POA - continue wound care --DVT prophylaxis; SCDs - D/C Heparin because of GI bleed Plan of care discussed with the patient's family at bedside Disposition - continue ICU care Prognosis: guarded The high probability of a clinically significant, sudden or life threatening deterioration of the [cv, pulmonary and GI] system(s) required my full and direct attention, intervention and personal management. The aggregate critical care time was [33] minutes. This time is in addition to time spent performing reported procedures but includes the following: [] Data Review and interpretation [] Patient assessment and monitoring of vital signs [] Documentation [] Medication orders and management History Interval history: continues to be intubated, sedated, pressor dependent Hospitalist Physical - Physical exam Narrative exam: General.: Obese HEENT: Moist mucous membranes, extraocular muscles intact, no lymphadenopathy Neck: supple Cardiac: S1-S2 heard Lungs: clear to auscultation bilaterally Abdomen: soft, bowel sounds normal, other (obese, soft, with midline packing, dressing not removed) Extremities: no edema clubbing or cyanosis Skin: no rash or lesions Neurologic: Intubated, obeys commands, arousable - Constitutional Vitals: Temp Pulse Resp BP Pulse Ox 98.4 F 85 20 97/62 100 09/01/17 08:00 09/01/17 10:15 09/01/17 10:15 09/01/17 10:15 09/01/17 10:15 Results - Labs CBC & Chem 7: 09/01/17 05:00 09/02/17 06:10 Labs: Laboratory Last Values WBC 33.9 K/mm3 (4.5-11.0) H 09/01/17 05:00 RBC 2.85 M/mm3 (3.65-5.03) L 09/01/17 05:00 Hgb 7.8 gm/dl (10.1-14.3) L 09/01/17 05:00 Hct 24.8 % (30.3-42.9) L 09/01/17 05:00 MCV 87 fl (79-97) 09/01/17 05:00 MCH 27 pg (28-32) L 09/01/17 05:00 MCHC 31 % (30-34) 09/01/17 05:00 RDW 23.9 % (13.2-15.2) H 09/01/17 05:00 Plt Count 288 K/mm3 (140-440) 09/01/17 05:00 Lymph % (Auto) [employer] 08/19/17 07:37 Hardy % (Auto) [employer] 08/19/17 07:37 Eos % (Auto) [employer] 08/19/17 07:37 Baso % (Auto) [employer] 08/19/17 07:37 Lymph # [employer] 08/19/17 07:37 Hardy # [employer] 08/19/17 07:37 Eos # [employer] 08/19/17 07:37 Baso # [employer] 08/19/17 07:37 Add Manual Diff Complete 09/01/17 05:00 Total Counted 100 09/01/17 05:00 Seg Neutrophils % [employer] 08/31/17 18:14 Seg Neuts % (Manual) 68.0 % (40.0-70.0) 09/01/17 05:00 Band Neutrophils % 15.0 % 09/01/17 05:00 Lymphocytes % (Manual) 5.0 % (13.4-35.0) L 09/01/17 05:00 Reactive Lymphs % (Man) 0 % 09/01/17 05:00 Monocytes % (Manual) 1.0 % (0.0-7.3) 09/01/17 05:00 Eosinophils % (Manual) 0 % (0.0-4.3) 09/01/17 05:00 Basophils % (Manual) 0 % (0.0-1.8) 09/01/17 05:00 Metamyelocytes % 6.0 % 09/01/17 05:00 Myelocytes % 4.0 % 09/01/17 05:00 Promyelocytes % 1.0 % 09/01/17 05:00 Blast Cells % 0 % 09/01/17 05:00 Nucleated RBC % Not Reportable 09/01/17 05:00 Seg Neutrophils # [employer] 08/19/17 07:37 Seg Neutrophils # Man 23.1 K/mm3 (1.8-7.7) H 09/01/17 05:00 Band Neutrophils # 5.1 K/mm3 09/01/17 05:00 Lymphocytes # (Manual) 1.7 K/mm3 (1.2-5.4) 09/01/17 05:00 Abs React Lymphs (Man) 0.0 K/mm3 09/01/17 05:00 Monocytes # (Manual) 0.3 K/mm3 (0.0-0.8) 09/01/17 05:00 Eosinophils # (Manual) 0.0 K/mm3 (0.0-0.4) 09/01/17 05:00 Basophils # (Manual) 0.0 K/mm3 (0.0-0.1) 09/01/17 05:00 Metamyelocytes # 2.0 K/mm3 09/01/17 05:00 Myelocytes # 1.4 K/mm3 09/01/17 05:00 Promyelocytes # 0.3 K/mm3 09/01/17 05:00 Blast Cells # 0.0 K/mm3 09/01/17 05:00 Pathologist Review Not Reportable 08/30/17 05:20 WBC Morphology Not Reportable 09/01/17 05:00 Hypersegmented Neuts Not Reportable 09/01/17 05:00 Hyposegmented Neuts Not Reportable 09/01/17 05:00 Hypogranular Neuts Not Reportable 09/01/17 05:00 Smudge Cells Not Reportable 09/01/17 05:00 Toxic Granulation Not Reportable 09/01/17 05:00 Toxic Vacuolation Not Reportable 09/01/17 05:00 Dohle Bodies Not Reportable 09/01/17 05:00 Pelger-Huet Anomaly Not Reportable 09/01/17 05:00 Ariel Rods Not Reportable 09/01/17 05:00 Platelet Estimate Appears normal 09/01/17 05:00 Clumped Platelets Not Reportable 09/01/17 05:00 Plt Clumps, EDTA Not Reportable 09/01/17 05:00 Large Platelets Not Reportable 09/01/17 05:00 Giant Platelets Few 09/01/17 05:00 Platelet Satelliting Not Reportable 09/01/17 05:00 Plt Morphology Comment Not Reportable 09/01/17 05:00 RBC Morphology Not Reportable 09/01/17 05:00 Dimorphic RBCs Not Reportable 09/01/17 05:00 Polychromasia Few 09/01/17 05:00 Hypochromasia Not Reportable 09/01/17 05:00 Poikilocytosis Not Reportable 09/01/17 05:00 Anisocytosis 2+ 09/01/17 05:00 Microcytosis Not Reportable 09/01/17 05:00 Macrocytosis Not Reportable 09/01/17 05:00 Spherocytes Not Reportable 09/01/17 05:00 Pappenheimer Bodies Not Reportable 09/01/17 05:00 Sickle Cells Not Reportable 09/01/17 05:00 Target Cells Rare 09/01/17 05:00 Tear Drop Cells Not Reportable 09/01/17 05:00 Ovalocytes 1+ 09/01/17 05:00 Stomatocytes Rare 09/01/17 05:00 Helmet Cells Not Reportable 09/01/17 05:00 Vera-[place] Bodies Not Reportable 09/01/17 05:00 Harvey Rings Not Reportable 09/01/17 05:00 [place] Cells Not Reportable 09/01/17 05:00 Bite Cells Not Reportable 09/01/17 05:00 Crenated Cell Not Reportable 09/01/17 05:00 Elliptocytes Rare 09/01/17 05:00 Acanthocytes (Spur) Not Reportable 09/01/17 05:00 Rouleaux Not Reportable 09/01/17 05:00 Hemoglobin C Crystals Not Reportable 09/01/17 05:00 Schistocytes Not Reportable 09/01/17 05:00 Malaria parasites Not Reportable 09/01/17 05:00 Jovanni Bodies Not Reportable 09/01/17 05:00 Hem Pathologist Commnt No 09/01/17 05:00 PT 15.1 Sec. (12.2-14.9) H 08/31/17 18:15 INR 1.13 (0.87-1.13) 08/31/17 18:15 APTT 28.7 Sec. (24.2-36.6) 08/31/17 18:15 POC ABG pH 7.335 (7.35-7.45) L 08/30/17 03:31 ABG pH 7.348 pH Units (7.350-7.450) L 09/01/17 05:20 POC ABG pCO2 44.1 (35-45) 08/30/17 03:31 ABG pCO2 45.7 mm Hg 09/01/17 05:20 POC ABG pO2 117 (80-105) H 08/30/17 03:31 ABG pO2 70.2 mm Hg (80.0-90.0) L 09/01/17 05:20 POC ABG HCO3 23.5 08/30/17 03:31 ABG HCO3 24.5 mmol/L (20.0-26.0) 09/01/17 05:20 POC ABG Total CO2 25 08/30/17 03:31 POC ABG O2 Sat 98 08/30/17 03:31 ABG O2 Saturation 97.3 % (95.0-99.0) 09/01/17 05:20 ABG O2 Content 10.1 (0.0-44) 09/01/17 05:20 POC ABG Base Excess -2 08/30/17 03:31 ABG Base Excess -1.1 mmol/L (-2.0-3.0) 09/01/17 05:20 ABG Hemoglobin 7.5 gm/dl (12.0-16.0) L 09/01/17 05:20 ABG Carboxyhemoglobin 1.8 % (0.0-5.0) 09/01/17 05:20 ABG Methemoglobin 0.4 % (0.0-1.5) 09/01/17 05:20 VBG pH 7.462 (7.320-7.420) H 08/08/17 14:52 Oxyhemoglobin 95.2 % (95.0-99.0) 09/01/17 05:20 FiO2 45 % 09/01/17 05:20 Sodium 145 mmol/L (137-145) D 09/01/17 05:00 Potassium 3.6 mmol/L (3.6-5.0) 09/01/17 05:00 Chloride 106.6 mmol/L (98-107) 09/01/17 05:00 Carbon Dioxide 25 mmol/L (22-30) 09/01/17 05:00 Anion Gap 17 mmol/L 09/01/17 05:00 BUN 51 mg/dL (7-17) H 09/01/17 05:00 Creatinine 1.8 mg/dL (0.7-1.2) H 09/01/17 05:00 Estimated GFR 35 ml/min 09/01/17 05:00 BUN/Creatinine Ratio 28 % 09/01/17 05:00 Glucose 195 mg/dL (65-100) H 09/01/17 05:00 POC Glucose 230 (70-105) H 09/01/17 05:47 Lactic Acid 1.60 mmol/L (0.7-2.0) 08/17/17 11:20 Calcium 8.6 mg/dL (8.4-10.2) 09/01/17 05:00 Phosphorus 1.70 mg/dL (2.5-4.5) L D 09/01/17 05:00 Magnesium 1.60 mg/dL (1.7-2.3) L 09/01/17 05:00 Total Bilirubin 0.80 mg/dL (0.1-1.2) 09/01/17 05:00 Direct Bilirubin 0.2 mg/dL (0-0.2) 08/08/17 14:11 Indirect Bilirubin 0.3 mg/dL 08/08/17 14:11 AST 80 units/L (5-40) H 09/01/17 05:00 ALT 82 units/L (7-56) H 09/01/17 05:00 Alkaline Phosphatase 243 units/L (35-129) H 09/01/17 05:00 Ammonia 25.0 umol/L (25-60) 08/08/17 14:52 Troponin T 0.132 ng/mL (0.00-0.029) H* 08/09/17 13:25 C-Reactive Protein 19.10 mg/dL (0.00-1.30) H 08/29/17 12:30 NT-Pro-B Natriuret Pep 6156 pg/mL (0-900) H 08/08/17 14:11 Total Protein 4.2 g/dL (6.3-8.2) L 09/01/17 05:00 Albumin 1.7 g/dL (3.9-5) L 09/01/17 05:00 Albumin/Globulin Ratio 0.7 % 09/01/17 05:00 Triglycerides 62 mg/dL (2-149) 08/08/17 21:23 Cholesterol 91 mg/dL (50-199) 08/08/17 21:23 LDL Cholesterol Direct 53 mg/dL (50-130) 08/08/17 21:23 HDL Cholesterol 26 mg/dL (40-59) L 08/08/17 21:23 Cholesterol/HDL Ratio 3.50 % 08/08/17 21:23 Amylase 45 units/L (27-131) 08/16/17 09:50 Lipase 34 units/L (13-60) 08/16/17 09:50 TSH 6.580 mlU/mL (0.270-4.200) H 08/08/17 14:22 Free T4 1.46 ng/dL (0.76-1.46) 08/08/17 14:22 Total Cortisol 30.1 mcg/dL () 08/13/17 06:14 Urine Color Yellow (Yellow) 08/08/17 20:15 Urine Turbidity Turbid (Clear) 08/08/17 20:15 Urine pH 8.0 (5.0-7.0) H 08/08/17 20:15 Ur Specific [place] 1.015 (1.003-1.030) 08/08/17 20:15 Urine Protein 100 mg/dl mg/dL (Negative) 08/08/17 20:15 Urine Glucose (UA) Neg mg/dL (Negative) 08/08/17 20:15 Urine Ketones Neg mg/dL (Negative) 08/08/17 20:15 Urine Blood Mod (Negative) 08/08/17 20:15 Urine Nitrite Neg (Negative) 08/08/17 20:15 Urine Bilirubin Neg (Negative) 08/08/17 20:15 Urine Urobilinogen < 2.0 mg/dL (<2.0) 08/08/17 20:15 Ur Leukocyte Esterase Lg (Negative) 08/08/17 20:15 Urine WBC (Auto) 24.0 /HPF (0.0-6.0) H 08/08/17 20:15 Urine RBC (Auto) 3.0 /HPF (0.0-6.0) 08/08/17 20:15 U Epithel Cells (Auto) 3.0 /HPF (0-13.0) 08/08/17 20:15 Urine Bacteria (Auto) 4+ /HPF (Negative) 08/08/17 20:15 Urine Mucus 3+ /HPF 08/08/17 20:15 Fluid Type Peritoneal 08/08/17 18:18 Fluid Color Straw 08/08/17 18:18 Fluid Appearance Clear 08/08/17 18:18 Fluid pH 7.74 08/08/17 18:18 Fluid WBC 4 /mm3 08/08/17 18:18 Fluid RBC 1 /mm3 08/08/17 18:18 Fluid Seg Neutrophils 12 % 08/08/17 18:18 Fluid Lymphocytes 0 % 08/08/17 18:18 Fluid Reactive Lymphs 0 % 08/08/17 18:18 Fluid Monocytes 1 % 08/08/17 18:18 Fluid Eosinophils 0 % 08/08/17 18:18 Fluid Basophils 0 % 08/08/17 18:18 Fluid Glucose 315 mg/dL (40-70) H 08/08/17 18:18 Random Vancomycin 19.5 ug/mL (0-40.0) 08/22/17 03:40 Hep Bs Antigen Non-reactive (Negative) 08/22/17 03:40 Hepatitis C Antibody Non-reactive (NonReactive) 08/22/17 03:40 Miscellaneous Test Flexitest 1 H 08/29/17 12:30 Blood Type O POSITIVE 08/31/17 11:56 Antibody Screen TNR 08/31/17 11:56 VAN Antibody Screen Negative 08/31/17 11:56 Crossmatch See Detail 08/31/17 11:56
--- NOTE | 2017-09-01 11:06 | Progress Note ---
Assessment and Plan Acute bacterial peritonitis/abscess s/p exlap. Discussed with .No new intra op surgical findings SBO w wound dehiscence Acute respiratory failure, hypoxia.On Vent support.ABG adequate Morbid obesity, excess cals. ESRD Sepsis, ongoing.Staph.ae./Enterococci/maxx on cultures. no fever today.Completing ABX. Chest CTA. ID following Leukemoid reaction - steroids versus worsening infection LGIB with acute blood loss anemia Rec: Continue ABX Monitor x fever If persistent high WBC , fever or chest signs; update CXR taper Norepinephrine drip Re-start weaning if stable, norepi < 5 mcg/hr Prognosis is guarded critical care time was 31 minutes of [id number] evaluation and coordination of care Subjective Date of service: 09/01/17 Principal diagnosis: Interval history: more alert, intubated.getting wound cleansing during rounds Objective Vital Signs - 12hr 08/31/17 08/31/17 08/31/17 23:16 23:30 23:46 Temperature Pulse Rate 99 H 96 H 95 H Pulse Rate [ Anterior Bilateral Throughout] Respiratory 17 18 19 Rate Respiratory Rate [Anterior Bilateral Throughout] Blood Pressure 160/124 59/37 68/33 O2 Sat by Pulse 100 Oximetry 09/01/17 09/01/17 09/01/17 00:00 00:16 00:30 Temperature 98.6 F Pulse Rate 96 H 93 H 92 H Pulse Rate [ Anterior Bilateral Throughout] Respiratory 18 21 14 Rate Respiratory Rate [Anterior Bilateral Throughout] Blood Pressure 68/33 157/125 157/125 O2 Sat by Pulse 100 100 100 Oximetry 09/01/17 09/01/17 09/01/17 00:40 00:45 01:00 Temperature Pulse Rate 94 H 89 92 H Pulse Rate [ Anterior Bilateral Throughout] Respiratory 17 14 Rate Respiratory Rate [Anterior Bilateral Throughout] Blood Pressure 71/45 71/45 77/46 O2 Sat by Pulse 100 100 100 Oximetry 09/01/17 09/01/17 09/01/17 01:16 01:30 01:46 Temperature Pulse Rate 92 H 93 H 93 H Pulse Rate [ Anterior Bilateral Throughout] Respiratory 17 19 15 Rate Respiratory Rate [Anterior Bilateral Throughout] Blood Pressure 77/46 104/35 123/96 O2 Sat by Pulse 97 100 100 Oximetry 09/01/17 09/01/17 09/01/17 02:00 02:16 02:30 Temperature Pulse Rate 113 H 102 H 106 H Pulse Rate [ Anterior Bilateral Throughout] Respiratory 14 21 12 Rate Respiratory Rate [Anterior Bilateral Throughout] Blood Pressure 132/79 131/103 O2 Sat by Pulse 100 100 100 Oximetry 09/01/17 09/01/17 09/01/17 02:36 02:42 02:45 Temperature Pulse Rate 92 H Pulse Rate [ 99 H 95 H Anterior Bilateral Throughout] Respiratory 17 Rate Respiratory 20 20 Rate [Anterior Bilateral Throughout] Blood Pressure 135/73 O2 Sat by Pulse 100 Oximetry 09/01/17 09/01/17 09/01/17 03:00 03:15 03:30 Temperature Pulse Rate 92 H 92 H 90 Pulse Rate [ Anterior Bilateral Throughout] Respiratory 20 20 19 Rate Respiratory Rate [Anterior Bilateral Throughout] Blood Pressure 133/66 129/64 118/66 O2 Sat by Pulse 100 100 100 Oximetry 09/01/17 09/01/17 09/01/17 03:45 03:56 04:00 Temperature 98.9 F Pulse Rate 90 84 Pulse Rate [ Anterior Bilateral Throughout] Respiratory 20 20 Rate Respiratory Rate [Anterior Bilateral Throughout] Blood Pressure 124/59 124/62 O2 Sat by Pulse 100 100 Oximetry 09/01/17 09/01/17 09/01/17 04:15 04:30 04:45 Temperature Pulse Rate 86 85 85 Pulse Rate [ Anterior Bilateral Throughout] Respiratory 20 20 20 Rate Respiratory Rate [Anterior Bilateral Throughout] Blood Pressure 125/60 122/58 122/62 O2 Sat by Pulse 100 100 100 Oximetry 09/01/17 09/01/17 09/01/17 05:00 05:15 05:16 Temperature Pulse Rate 85 84 84 Pulse Rate [ Anterior Bilateral Throughout] Respiratory 20 20 Rate Respiratory Rate [Anterior Bilateral Throughout] Blood Pressure 127/60 125/69 125/69 O2 Sat by Pulse 100 100 100 Oximetry 09/01/17 09/01/17 09/01/17 05:30 05:45 06:00 Temperature Pulse Rate 86 87 87 Pulse Rate [ Anterior Bilateral Throughout] Respiratory 20 20 20 Rate Respiratory Rate [Anterior Bilateral Throughout] Blood Pressure 113/57 122/59 118/61 O2 Sat by Pulse 100 100 100 Oximetry 09/01/17 09/01/17 09/01/17 06:15 06:30 06:45 Temperature Pulse Rate 84 84 82 Pulse Rate [ Anterior Bilateral Throughout] Respiratory 20 20 20 Rate Respiratory Rate [Anterior Bilateral Throughout] Blood Pressure 121/59 131/64 129/66 O2 Sat by Pulse 100 100 100 Oximetry 09/01/17 09/01/17 09/01/17 07:00 07:15 07:30 Temperature Pulse Rate 84 85 84 Pulse Rate [ Anterior Bilateral Throughout] Respiratory 20 20 17 Rate Respiratory Rate [Anterior Bilateral Throughout] Blood Pressure 139/67 131/67 119/65 O2 Sat by Pulse 100 100 100 Oximetry 09/01/17 09/01/17 09/01/17 07:45 08:00 08:15 Temperature 98.4 F Pulse Rate 85 85 86 Pulse Rate [ Anterior Bilateral Throughout] Respiratory 19 20 15 Rate Respiratory Rate [Anterior Bilateral Throughout] Blood Pressure 124/66 109/51 112/58 O2 Sat by Pulse 100 100 100 Oximetry 09/01/17 09/01/17 09/01/17 08:30 08:45 09:00 Temperature Pulse Rate 84 86 86 Pulse Rate [ Anterior Bilateral Throughout] Respiratory 20 12 12 Rate Respiratory Rate [Anterior Bilateral Throughout] Blood Pressure 114/56 123/52 123/52 O2 Sat by Pulse 100 100 100 Oximetry 09/01/17 09/01/17 09/01/17 09:15 09:30 09:46 Temperature Pulse Rate 85 86 86 Pulse Rate [ Anterior Bilateral Throughout] Respiratory 19 21 22 Rate Respiratory Rate [Anterior Bilateral Throughout] Blood Pressure 108/61 115/58 115/56 O2 Sat by Pulse 100 100 100 Oximetry 09/01/17 09/01/17 10:00 10:15 Temperature Pulse Rate 86 85 Pulse Rate [ Anterior Bilateral Throughout] Respiratory 17 20 Rate Respiratory Rate [Anterior Bilateral Throughout] Blood Pressure 118/62 97/62 O2 Sat by Pulse 100 100 Oximetry Constitutional: alert, other (critically ill on vent, obese) Eyes: non-icteric ENT: oropharynx moist, other (NGT) Neck: supple, no lymphadenopathy Effort: mildly labored Ascultation: Bilateral: clear (anteriorly), diminished breath sounds, rhonchi ( occ) Cardiovascular: regular rate and rhythm Gastrointestinal: absent bowel sounds, non-tender, other (abdominal incision with new dressing noted, obese) Integumentary: normal Extremities: no cyanosis, pink and warm, edema (3+ bilateral LE edema) Neurologic: non-focal exam, pupils equal and round, other (somnolent) Psychiatric: mood appropriate, affect normal CBC and BMP: 09/01/17 05:00 09/01/17 05:00 ABG, PT/INR, D-dimer: ABG POC ABG pH 7.335 (7.35-7.45) L 08/30/17 03:31 ABG pH 7.348 pH Units (7.350-7.450) L 09/01/17 05:20 POC ABG pCO2 44.1 (35-45) 08/30/17 03:31 ABG pCO2 45.7 mm Hg 09/01/17 05:20 POC ABG pO2 117 (80-105) H 08/30/17 03:31 ABG pO2 70.2 mm Hg (80.0-90.0) L 09/01/17 05:20 POC ABG HCO3 23.5 08/30/17 03:31 POC ABG Total CO2 25 08/30/17 03:31 POC ABG O2 Sat 98 08/30/17 03:31 ABG O2 Saturation 97.3 % (95.0-99.0) 09/01/17 05:20 PT/INR, D-dimer PT 15.1 Sec. (12.2-14.9) H 08/31/17 18:15 INR 1.13 (0.87-1.13) 08/31/17 18:15 Abnormal lab findings: Abnormal Labs 08/08/17 08/08/17 08/09/17 21:23 21:31 11:19 WBC 15.7 H RBC 2.93 L Hgb 8.7 L Hct 26.8 L MCV MCH RDW 19.2 H Plt Count Lymph % (Auto) [place] % (Auto) [place] # Seg Neutrophils % Seg Neuts % (Manual) Lymphocytes % (Manual) Monocytes % (Manual) Nucleated RBC % Seg Neutrophils # Seg Neutrophils # Man Lymphocytes # (Manual) Monocytes # (Manual) Eosinophils # (Manual) Basophils # (Manual) PT INR POC ABG pH 7.490 H ABG pH POC ABG pCO2 POC ABG pO2 122 H ABG pO2 ABG Hemoglobin Sodium Potassium Chloride Carbon Dioxide BUN Creatinine Glucose POC Glucose Calcium Phosphorus Magnesium AST ALT Alkaline Phosphatase Troponin T 0.133 H* C-Reactive Protein Total Protein Albumin HDL Cholesterol 26 L Miscellaneous Test Crossmatch 09/15/17 09/16/17 09/16/17 13:25 04:45 04:45 WBC 15.5 H RBC 2.97 L Hgb 8.9 L Hct 27.0 L MCV MCH RDW 19.2 H Plt Count Lymph % (Auto) [place] % (Auto) [place] # Seg Neutrophils % Seg Neuts % (Manual) 73.0 H Lymphocytes % (Manual) 7.0 L Monocytes % (Manual) 14.0 H Nucleated RBC % Seg Neutrophils # Seg Neutrophils # Man 11.3 H Lymphocytes # (Manual) 1.1 L Monocytes # (Manual) 2.2 H Eosinophils # (Manual) Basophils # (Manual) 0.2 H PT INR POC ABG pH ABG pH POC ABG pCO2 POC ABG pO2 ABG pO2 ABG Hemoglobin Sodium Potassium 3.3 L Chloride 97.3 L Carbon Dioxide 21 L BUN 23 H Creatinine 6.5 H Glucose POC Glucose Calcium 7.3 L Phosphorus Magnesium AST ALT Alkaline Phosphatase 138 H Troponin T 0.132 H* C-Reactive Protein Total Protein 4.8 L Albumin 1.4 L HDL Cholesterol Miscellaneous Test Crossmatch 08/11/17 08/11/17 08/12/17 04:00 04:00 05:50 WBC 19.3 H RBC 3.10 L Hgb 9.5 L Hct 28.2 L MCV MCH RDW 19.2 H Plt Count 463 H Lymph % (Auto) 7.5 L [place] % (Auto) 14.6 H [place] # 2.8 H Seg Neutrophils % 77.0 H Seg Neuts % (Manual) Lymphocytes % (Manual) Monocytes % (Manual) Nucleated RBC % Seg Neutrophils # 14.8 H Seg Neutrophils # Man Lymphocytes # (Manual) Monocytes # (Manual) Eosinophils # (Manual) Basophils # (Manual) PT INR POC ABG pH ABG pH POC ABG pCO2 POC ABG pO2 ABG pO2 ABG Hemoglobin Sodium 136 L 136 L Potassium 3.3 L Chloride 96.3 L 96.6 L Carbon Dioxide BUN 26 H 26 H Creatinine 6.4 H 6.2 H Glucose 135 H 133 H POC Glucose Calcium 8.2 L Phosphorus Magnesium 1.30 L AST ALT Alkaline Phosphatase 139 H Troponin T C-Reactive Protein Total Protein 5.5 L Albumin 1.7 L HDL Cholesterol Miscellaneous Test Crossmatch 08/12/17 08/12/17 08/12/17 05:50 05:50 05:50 WBC 20.1 H RBC 3.06 L Hgb 9.3 L Hct 27.9 L MCV MCH RDW 18.4 H Plt Count 471 H Lymph % (Auto) [place] % (Auto) [place] # Seg Neutrophils % Seg Neuts % (Manual) 85.0 H Lymphocytes % (Manual) 8.0 L Monocytes % (Manual) Nucleated RBC % Seg Neutrophils # Seg Neutrophils # Man 17.1 H Lymphocytes # (Manual) Monocytes # (Manual) 1.0 H Eosinophils # (Manual) Basophils # (Manual) PT 15.2 H INR 1.14 H POC ABG pH ABG pH POC ABG pCO2 POC ABG pO2 ABG pO2 ABG Hemoglobin Sodium Potassium Chloride Carbon Dioxide BUN Creatinine Glucose POC Glucose Calcium Phosphorus Magnesium AST ALT Alkaline Phosphatase Troponin T C-Reactive Protein 28.90 H Total Protein Albumin HDL Cholesterol Miscellaneous Test Crossmatch 08/12/17 08/13/17 08/13/17 16:23 06:14 06:14 WBC 21.8 H RBC 3.11 L Hgb 9.4 L Hct 28.2 L MCV MCH RDW 18.2 H Plt Count 492 H Lymph % (Auto) [place] % (Auto) [place] # Seg Neutrophils % Seg Neuts % (Manual) 73.0 H Lymphocytes % (Manual) 2.0 L Monocytes % (Manual) 15 H Nucleated RBC % Seg Neutrophils # Seg Neutrophils # Man 15.9 H Lymphocytes # (Manual) 0.4 L Monocytes # (Manual) 2.4 H Eosinophils # (Manual) Basophils # (Manual) PT INR POC ABG pH ABG pH POC ABG pCO2 POC ABG pO2 ABG pO2 ABG Hemoglobin Sodium Potassium Chloride 96.2 L Carbon Dioxide BUN 28 H Creatinine 5.6 H Glucose 114 H POC Glucose Calcium Phosphorus Magnesium AST ALT Alkaline Phosphatase Troponin T C-Reactive Protein 26.10 H Total Protein Albumin HDL Cholesterol Miscellaneous Test Crossmatch 08/13/17 08/14/17 08/14/17 16:39 04:00 04:00 WBC 22.1 H RBC 3.25 L Hgb 9.9 L Hct 29.5 L MCV MCH RDW 17.9 H Plt Count 525 H Lymph % (Auto) [place] % (Auto) [place] # Seg Neutrophils % Seg Neuts % (Manual) 74.0 H Lymphocytes % (Manual) 8.0 L Monocytes % (Manual) 12.0 H Nucleated RBC % Seg Neutrophils # Seg Neutrophils # Man 16.4 H Lymphocytes # (Manual) Monocytes # (Manual) 2.7 H Eosinophils # (Manual) Basophils # (Manual) PT INR POC ABG pH ABG pH POC ABG pCO2 POC ABG pO2 ABG pO2 ABG Hemoglobin Sodium 134 L Potassium 3.3 L Chloride 93.3 L Carbon Dioxide BUN 27 H Creatinine 6.0 H Glucose 152 H POC Glucose 151 H Calcium Phosphorus Magnesium AST ALT Alkaline Phosphatase Troponin T C-Reactive Protein Total Protein Albumin HDL Cholesterol Miscellaneous Test Crossmatch 08/15/17 08/16/17 08/16/17 09:10 09:50 09:50 WBC 31.1 H RBC 3.21 L Hgb 9.6 L Hct 29.3 L MCV MCH RDW 18.1 H Plt Count 642 H Lymph % (Auto) [place] % (Auto) [place] # Seg Neutrophils % Seg Neuts % (Manual) 74.0 H Lymphocytes % (Manual) 4.0 L Monocytes % (Manual) 9.0 H Nucleated RBC % Seg Neutrophils # Seg Neutrophils # Man 23.0 H Lymphocytes # (Manual) Monocytes # (Manual) 2.8 H Eosinophils # (Manual) Basophils # (Manual) PT INR POC ABG pH ABG pH POC ABG pCO2 POC ABG pO2 ABG pO2 ABG Hemoglobin Sodium 136 L 136 L Potassium 3.5 L Chloride 97.6 L 94.9 L Carbon Dioxide BUN 27 H 28 H Creatinine 5.6 H 5.5 H Glucose 117 H 103 H POC Glucose Calcium Phosphorus Magnesium AST ALT Alkaline Phosphatase 137 H Troponin T C-Reactive Protein Total Protein 5.4 L Albumin 1.5 L HDL Cholesterol Miscellaneous Test Crossmatch 08/16/17 08/17/17 08/17/17 09:50 05:00 06:26 WBC RBC Hgb Hct MCV MCH RDW Plt Count Lymph % (Auto) [place] % (Auto) [place] # Seg Neutrophils % Seg Neuts % (Manual) Lymphocytes % (Manual) Monocytes % (Manual) Nucleated RBC % Seg Neutrophils # Seg Neutrophils # Man Lymphocytes # (Manual) Monocytes # (Manual) Eosinophils # (Manual) Basophils # (Manual) PT INR POC ABG pH ABG pH POC ABG pCO2 POC ABG pO2 ABG pO2 ABG Hemoglobin Sodium 134 L Potassium 3.0 L Chloride 97.8 L Carbon Dioxide BUN 30 H Creatinine 5.3 H Glucose 147 H POC Glucose 165 H Calcium 7.5 L Phosphorus Magnesium AST ALT Alkaline Phosphatase Troponin T C-Reactive Protein 32.30 H Total Protein Albumin HDL Cholesterol Miscellaneous Test Crossmatch 08/17/17 08/17/17 08/17/17 10:56 11:20 11:20 WBC 39.1 H RBC 3.10 L Hgb 9.2 L Hct 28.6 L MCV MCH RDW 18.3 H Plt Count 580 H Lymph % (Auto) [place] % (Auto) [place] # Seg Neutrophils % Seg Neuts % (Manual) 89.5 H Lymphocytes % (Manual) 3.5 L Monocytes % (Manual) Nucleated RBC % Seg Neutrophils # Seg Neutrophils # Man 35.0 H Lymphocytes # (Manual) Monocytes # (Manual) 2.5 H Eosinophils # (Manual) Basophils # (Manual) 0.2 H PT INR POC ABG pH 7.464 H ABG pH POC ABG pCO2 34.1 L POC ABG pO2 75 L ABG pO2 ABG Hemoglobin Sodium Potassium Chloride Carbon Dioxide BUN Creatinine Glucose POC Glucose Calcium Phosphorus Magnesium AST ALT Alkaline Phosphatase Troponin T C-Reactive Protein Total Protein Albumin HDL Cholesterol Miscellaneous Test Flexitest 1 H Crossmatch 08/17/17 08/17/17 08/17/17 11:20 16:57 20:20 WBC 34.4 H RBC 2.81 L Hgb 8.4 L Hct 26.0 L MCV MCH RDW 17.8 H Plt Count 455 H Lymph % (Auto) [place] % (Auto) [place] # Seg Neutrophils % Seg Neuts % (Manual) Lymphocytes % (Manual) 3.5 L Monocytes % (Manual) Nucleated RBC % 5.0 H Seg Neutrophils # Seg Neutrophils # Man 16.5 H Lymphocytes # (Manual) Monocytes # (Manual) 1.0 H Eosinophils # (Manual) Basophils # (Manual) PT 16.0 H INR 1.29 H POC ABG pH ABG pH POC ABG pCO2 POC ABG pO2 ABG pO2 ABG Hemoglobin Sodium 135 L Potassium 2.9 L* Chloride Carbon Dioxide 20 L BUN 32 H Creatinine 5.4 H Glucose 129 H POC Glucose Calcium 7.5 L Phosphorus Magnesium 1.50 L AST 85 H ALT Alkaline Phosphatase Troponin T C-Reactive Protein Total Protein 4.0 L D Albumin 1.6 L HDL Cholesterol Miscellaneous Test Crossmatch 08/17/17 08/17/17 08/18/17 20:54 23:47 04:26 WBC RBC Hgb Hct MCV MCH RDW Plt Count Lymph % (Auto) [place] % (Auto) [place] # Seg Neutrophils % Seg Neuts % (Manual) Lymphocytes % (Manual) Monocytes % (Manual) Nucleated RBC % Seg Neutrophils # Seg Neutrophils # Man Lymphocytes # (Manual) Monocytes # (Manual) Eosinophils # (Manual) Basophils # (Manual) PT INR POC ABG pH 7.557 H ABG pH POC ABG pCO2 23.1 L 29.0 L POC ABG pO2 187 H 148 H ABG pO2 ABG Hemoglobin Sodium Potassium Chloride Carbon Dioxide BUN Creatinine Glucose POC Glucose 188 H Calcium Phosphorus Magnesium AST ALT Alkaline Phosphatase Troponin T C-Reactive Protein Total Protein Albumin HDL Cholesterol Miscellaneous Test Crossmatch 08/18/17 08/18/17 08/18/17 05:51 11:44 17:07 WBC RBC Hgb Hct MCV MCH RDW Plt Count Lymph % (Auto) [place] % (Auto) [place] # Seg Neutrophils % Seg Neuts % (Manual) Lymphocytes % (Manual) Monocytes % (Manual) Nucleated RBC % Seg Neutrophils # Seg Neutrophils # Man Lymphocytes # (Manual) Monocytes # (Manual) Eosinophils # (Manual) Basophils # (Manual) PT INR POC ABG pH ABG pH POC ABG pCO2 POC ABG pO2 ABG pO2 ABG Hemoglobin Sodium Potassium Chloride Carbon Dioxide BUN Creatinine Glucose POC Glucose 202 H 195 H 182 H Calcium Phosphorus Magnesium AST ALT Alkaline Phosphatase Troponin T C-Reactive Protein Total Protein Albumin HDL Cholesterol Miscellaneous Test Crossmatch 08/18/17 08/18/17 08/18/17 23:45 Unknown Unknown WBC 39.0 H RBC 2.84 L Hgb 8.4 L Hct 26.5 L MCV MCH RDW 18.0 H Plt Count 476 H Lymph % (Auto) [place] % (Auto) [place] # Seg Neutrophils % Seg Neuts % (Manual) Lymphocytes % (Manual) 7.0 L Monocytes % (Manual) 10.0 H Nucleated RBC % 3.0 H Seg Neutrophils # Seg Neutrophils # Man 15.6 H Lymphocytes # (Manual) Monocytes # (Manual) 3.9 H Eosinophils # (Manual) Basophils # (Manual) PT INR POC ABG pH ABG pH POC ABG pCO2 POC ABG pO2 ABG pO2 ABG Hemoglobin Sodium Potassium Chloride Carbon Dioxide 19 L BUN 34 H Creatinine 5.6 H Glucose 201 H POC Glucose 163 H Calcium 7.8 L Phosphorus 1.90 L D Magnesium 1.60 L AST ALT Alkaline Phosphatase Troponin T C-Reactive Protein Total Protein Albumin HDL Cholesterol Miscellaneous Test Crossmatch 08/19/17 08/19/17 08/19/17 04:18 05:00 05:00 WBC 40.0 H RBC 2.46 L Hgb 7.3 L Hct 22.6 L MCV MCH RDW 18.1 H Plt Count Lymph % (Auto) [place] % (Auto) [place] # Seg Neutrophils % Seg Neuts % (Manual) Lymphocytes % (Manual) 8.0 L Monocytes % (Manual) Nucleated RBC % 2.0 H Seg Neutrophils # Seg Neutrophils # Man 16.4 H Lymphocytes # (Manual) Monocytes # (Manual) 1.2 H Eosinophils # (Manual) 1.2 H Basophils # (Manual) PT INR POC ABG pH 7.463 H ABG pH POC ABG pCO2 29.7 L POC ABG pO2 134 H ABG pO2 ABG Hemoglobin Sodium Potassium 5.1 H D Chloride Carbon Dioxide 20 L BUN 40 H Creatinine 5.3 H Glucose 128 H POC Glucose Calcium 7.8 L Phosphorus 1.90 L Magnesium AST ALT Alkaline Phosphatase Troponin T C-Reactive Protein Total Protein Albumin HDL Cholesterol Miscellaneous Test Crossmatch 08/19/17 08/19/17 08/19/17 05:19 07:37 09:52 WBC 45.0 H* RBC 2.50 L Hgb 7.5 L Hct 24.5 L MCV 98 H MCH RDW 18.4 H Plt Count Lymph % (Auto) [place] % (Auto) [place] # Seg Neutrophils % Seg Neuts % (Manual) 81.5 H Lymphocytes % (Manual) 4.0 L Monocytes % (Manual) Nucleated RBC % 1.0 H Seg Neutrophils # Seg Neutrophils # Man 36.7 H Lymphocytes # (Manual) Monocytes # (Manual) Eosinophils # (Manual) Basophils # (Manual) PT INR POC ABG pH ABG pH POC ABG pCO2 POC ABG pO2 ABG pO2 ABG Hemoglobin Sodium Potassium Chloride Carbon Dioxide BUN Creatinine Glucose POC Glucose 142 H Calcium Phosphorus Magnesium AST ALT Alkaline Phosphatase Troponin T C-Reactive Protein 34.20 H Total Protein Albumin HDL Cholesterol Miscellaneous Test Crossmatch 08/19/17 08/19/17 08/20/17 11:16 18:12 00:35 WBC RBC Hgb Hct MCV MCH RDW Plt Count Lymph % (Auto) [place] % (Auto) [place] # Seg Neutrophils % Seg Neuts % (Manual) Lymphocytes % (Manual) Monocytes % (Manual) Nucleated RBC % Seg Neutrophils # Seg Neutrophils # Man Lymphocytes # (Manual) Monocytes # (Manual) Eosinophils # (Manual) Basophils # (Manual) PT INR POC ABG pH ABG pH POC ABG pCO2 POC ABG pO2 ABG pO2 ABG Hemoglobin Sodium Potassium Chloride Carbon Dioxide BUN Creatinine Glucose POC Glucose 143 H 137 H 164 H Calcium Phosphorus Magnesium AST ALT Alkaline Phosphatase Troponin T C-Reactive Protein Total Protein Albumin HDL Cholesterol Miscellaneous Test Crossmatch 08/20/17 08/20/17 08/20/17 03:20 03:20 04:00 WBC 48.0 H* RBC 2.55 L Hgb 7.6 L Hct 23.4 L MCV MCH RDW 18.4 H Plt Count Lymph % (Auto) [place] % (Auto) [place] # Seg Neutrophils % Seg Neuts % (Manual) 90.0 H Lymphocytes % (Manual) 3.0 L Monocytes % (Manual) Nucleated RBC % Seg Neutrophils # Seg Neutrophils # Man 43.2 H Lymphocytes # (Manual) Monocytes # (Manual) 1.4 H Eosinophils # (Manual) 0.5 H Basophils # (Manual) PT INR POC ABG pH 7.499 H ABG pH POC ABG pCO2 29.1 L POC ABG pO2 ABG pO2 ABG Hemoglobin Sodium 135 L Potassium Chloride Carbon Dioxide BUN 28 H Creatinine 4.0 H Glucose 140 H POC Glucose Calcium 8.0 L Phosphorus 1.70 L Magnesium 1.60 L AST ALT Alkaline Phosphatase Troponin T C-Reactive Protein Total Protein Albumin HDL Cholesterol Miscellaneous Test Crossmatch 08/20/17 08/20/17 08/20/17 05:02 12:05 13:12 WBC RBC Hgb Hct MCV MCH RDW Plt Count Lymph % (Auto) [place] % (Auto) [place] # Seg Neutrophils % Seg Neuts % (Manual) Lymphocytes % (Manual) Monocytes % (Manual) Nucleated RBC % Seg Neutrophils # Seg Neutrophils # Man Lymphocytes # (Manual) Monocytes # (Manual) Eosinophils # (Manual) Basophils # (Manual) PT INR POC ABG pH 7.537 H ABG pH POC ABG pCO2 27.9 L POC ABG pO2 79 L ABG pO2 ABG Hemoglobin Sodium Potassium Chloride Carbon Dioxide BUN Creatinine Glucose POC Glucose 158 H 203 H Calcium Phosphorus Magnesium AST ALT Alkaline Phosphatase Troponin T C-Reactive Protein Total Protein Albumin HDL Cholesterol Miscellaneous Test Crossmatch 08/20/17 08/21/17 08/21/17 17:13 00:47 03:14 WBC RBC Hgb Hct MCV MCH RDW Plt Count Lymph % (Auto) [place] % (Auto) [place] # Seg Neutrophils % Seg Neuts % (Manual) Lymphocytes % (Manual) Monocytes % (Manual) Nucleated RBC % Seg Neutrophils # Seg Neutrophils # Man Lymphocytes # (Manual) Monocytes # (Manual) Eosinophils # (Manual) Basophils # (Manual) PT INR POC ABG pH 7.481 H ABG pH POC ABG pCO2 29.6 L POC ABG pO2 ABG pO2 ABG Hemoglobin Sodium Potassium Chloride Carbon Dioxide BUN Creatinine Glucose POC Glucose 188 H 109 H Calcium Phosphorus Magnesium AST ALT Alkaline Phosphatase Troponin T C-Reactive Protein Total Protein Albumin HDL Cholesterol Miscellaneous Test Crossmatch 08/21/17 08/21/17 08/21/17 05:05 06:50 06:50 WBC 44.7 H* RBC 2.41 L Hgb 7.1 L Hct 22.1 L MCV MCH RDW 18.3 H Plt Count Lymph % (Auto) [place] % (Auto) [place] # Seg Neutrophils % Seg Neuts % (Manual) 89.0 H Lymphocytes % (Manual) 0 L Monocytes % (Manual) Nucleated RBC % 1.0 H Seg Neutrophils # Seg Neutrophils # Man 39.8 H Lymphocytes # (Manual) 0.0 L Monocytes # (Manual) 1.3 H Eosinophils # (Manual) Basophils # (Manual) PT INR POC ABG pH ABG pH POC ABG pCO2 POC ABG pO2 ABG pO2 ABG Hemoglobin Sodium 135 L Potassium Chloride Carbon Dioxide BUN 39 H Creatinine 4.4 H Glucose 147 H POC Glucose 166 H Calcium 8.1 L Phosphorus Magnesium AST ALT < 5 L Alkaline Phosphatase 164 H Troponin T C-Reactive Protein Total Protein 4.7 L Albumin 1.4 L HDL Cholesterol Miscellaneous Test Crossmatch 08/21/17 08/21/17 08/21/17 08:00 12:21 17:02 WBC RBC Hgb Hct MCV MCH RDW Plt Count Lymph % (Auto) [place] % (Auto) [place] # Seg Neutrophils % Seg Neuts % (Manual) Lymphocytes % (Manual) Monocytes % (Manual) Nucleated RBC % Seg Neutrophils # Seg Neutrophils # Man Lymphocytes # (Manual) Monocytes # (Manual) Eosinophils # (Manual) Basophils # (Manual) PT INR POC ABG pH ABG pH POC ABG pCO2 POC ABG pO2 ABG pO2 ABG Hemoglobin Sodium Potassium Chloride Carbon Dioxide BUN Creatinine Glucose POC Glucose 147 H 135 H Calcium Phosphorus Magnesium AST ALT Alkaline Phosphatase Troponin T C-Reactive Protein Total Protein Albumin HDL Cholesterol Miscellaneous Test Crossmatch See Detail 08/21/17 08/22/17 08/22/17 23:38 03:40 03:40 WBC 42.5 H* RBC 2.88 L Hgb 8.5 L Hct 26.3 L MCV MCH RDW 17.9 H Plt Count Lymph % (Auto) [place] % (Auto) [place] # Seg Neutrophils % Seg Neuts % (Manual) Lymphocytes % (Manual) 5.0 L Monocytes % (Manual) Nucleated RBC % Seg Neutrophils # Seg Neutrophils # Man 19.6 H Lymphocytes # (Manual) Monocytes # (Manual) 2.6 H Eosinophils # (Manual) Basophils # (Manual) PT INR POC ABG pH ABG pH POC ABG pCO2 POC ABG pO2 ABG pO2 ABG Hemoglobin Sodium Potassium 3.3 L D Chloride Carbon Dioxide BUN 27 H Creatinine 2.9 H Glucose 144 H POC Glucose 251 H Calcium 8.0 L Phosphorus 2.40 L Magnesium AST ALT Alkaline Phosphatase Troponin T C-Reactive Protein Total Protein Albumin HDL Cholesterol Miscellaneous Test Crossmatch 08/22/17 08/22/17 08/22/17 06:37 08:50 11:25 WBC RBC Hgb Hct MCV MCH RDW Plt Count Lymph % (Auto) [place] % (Auto) [place] # Seg Neutrophils % Seg Neuts % (Manual) Lymphocytes % (Manual) Monocytes % (Manual) Nucleated RBC % Seg Neutrophils # Seg Neutrophils # Man Lymphocytes # (Manual) Monocytes # (Manual) Eosinophils # (Manual) Basophils # (Manual) PT INR POC ABG pH ABG pH POC ABG pCO2 POC ABG pO2 ABG pO2 ABG Hemoglobin Sodium Potassium Chloride Carbon Dioxide BUN Creatinine Glucose POC Glucose 152 H 175 H Calcium Phosphorus Magnesium AST ALT Alkaline Phosphatase Troponin T C-Reactive Protein Total Protein Albumin HDL Cholesterol Miscellaneous Test Flexitest 1 H Crossmatch 08/22/17 08/22/17 08/22/17 16:25 17:56 23:03 WBC RBC Hgb Hct MCV MCH RDW Plt Count Lymph % (Auto) [place] % (Auto) [place] # Seg Neutrophils % Seg Neuts % (Manual) Lymphocytes % (Manual) Monocytes % (Manual) Nucleated RBC % Seg Neutrophils # Seg Neutrophils # Man Lymphocytes # (Manual) Monocytes # (Manual) Eosinophils # (Manual) Basophils # (Manual) PT INR POC ABG pH ABG pH POC ABG pCO2 POC ABG pO2 ABG pO2 ABG Hemoglobin Sodium Potassium Chloride Carbon Dioxide BUN Creatinine Glucose POC Glucose 232 H 192 H Calcium Phosphorus Magnesium AST ALT Alkaline Phosphatase Troponin T C-Reactive Protein 30.70 H Total Protein Albumin HDL Cholesterol Miscellaneous Test Crossmatch 08/23/17 08/23/17 08/23/17 05:36 08:50 12:14 WBC RBC Hgb Hct MCV MCH RDW Plt Count Lymph % (Auto) [place] % (Auto) [place] # Seg Neutrophils % Seg Neuts % (Manual) Lymphocytes % (Manual) Monocytes % (Manual) Nucleated RBC % Seg Neutrophils # Seg Neutrophils # Man Lymphocytes # (Manual) Monocytes # (Manual) Eosinophils # (Manual) Basophils # (Manual) PT INR POC ABG pH ABG pH POC ABG pCO2 POC ABG pO2 ABG pO2 ABG Hemoglobin Sodium Potassium Chloride 107.1 H Carbon Dioxide BUN 49 H Creatinine 3.3 H Glucose 172 H POC Glucose 206 H 238 H Calcium Phosphorus Magnesium 2.40 H AST ALT Alkaline Phosphatase Troponin T C-Reactive Protein Total Protein Albumin HDL Cholesterol Miscellaneous Test Crossmatch 08/23/17 08/23/17 08/24/17 17:21 23:13 04:00 WBC 34.2 H RBC 2.86 L Hgb 8.4 L Hct 25.9 L MCV MCH RDW 17.9 H Plt Count Lymph % (Auto) [place] % (Auto) [place] # Seg Neutrophils % Seg Neuts % (Manual) 85.0 H Lymphocytes % (Manual) 0.5 L Monocytes % (Manual) Nucleated RBC % 1.0 H Seg Neutrophils # Seg Neutrophils # Man 29.1 H Lymphocytes # (Manual) 0.2 L Monocytes # (Manual) 2.4 H Eosinophils # (Manual) Basophils # (Manual) PT INR POC ABG pH ABG pH POC ABG pCO2 POC ABG pO2 ABG pO2 ABG Hemoglobin Sodium Potassium Chloride Carbon Dioxide BUN Creatinine Glucose POC Glucose 226 H 183 H Calcium Phosphorus Magnesium AST ALT Alkaline Phosphatase Troponin T C-Reactive Protein Total Protein Albumin HDL Cholesterol Miscellaneous Test Crossmatch 08/24/17 08/24/17 08/24/17 05:06 09:30 12:04 WBC RBC Hgb Hct MCV MCH RDW Plt Count Lymph % (Auto) [place] % (Auto) [place] # Seg Neutrophils % Seg Neuts % (Manual) Lymphocytes % (Manual) Monocytes % (Manual) Nucleated RBC % Seg Neutrophils # Seg Neutrophils # Man Lymphocytes # (Manual) Monocytes # (Manual) Eosinophils # (Manual) Basophils # (Manual) PT INR POC ABG pH ABG pH POC ABG pCO2 POC ABG pO2 ABG pO2 ABG Hemoglobin Sodium Potassium Chloride Carbon Dioxide BUN 46 H Creatinine 2.5 H Glucose 176 H POC Glucose 201 H 181 H Calcium Phosphorus Magnesium AST ALT Alkaline Phosphatase Troponin T C-Reactive Protein Total Protein Albumin HDL Cholesterol Miscellaneous Test Crossmatch 08/24/17 08/24/17 08/25/17 18:04 23:05 05:05 WBC RBC Hgb Hct MCV MCH RDW Plt Count Lymph % (Auto) [place] % (Auto) [place] # Seg Neutrophils % Seg Neuts % (Manual) Lymphocytes % (Manual) Monocytes % (Manual) Nucleated RBC % Seg Neutrophils # Seg Neutrophils # Man Lymphocytes # (Manual) Monocytes # (Manual) Eosinophils # (Manual) Basophils # (Manual) PT INR POC ABG pH ABG pH POC ABG pCO2 POC ABG pO2 ABG pO2 ABG Hemoglobin Sodium Potassium Chloride Carbon Dioxide BUN Creatinine Glucose POC Glucose 189 H 175 H 190 H Calcium Phosphorus Magnesium AST ALT Alkaline Phosphatase Troponin T C-Reactive Protein Total Protein Albumin HDL Cholesterol Miscellaneous Test Crossmatch 08/25/17 08/25/17 08/26/17 07:02 11:53 05:30 WBC 33.5 H RBC 2.47 L Hgb 7.3 L Hct 23.0 L MCV MCH RDW 21.3 H Plt Count Lymph % (Auto) [place] % (Auto) [place] # Seg Neutrophils % Seg Neuts % (Manual) 92.0 H Lymphocytes % (Manual) 1.0 L Monocytes % (Manual) Nucleated RBC % Seg Neutrophils # Seg Neutrophils # Man 30.8 H Lymphocytes # (Manual) 0.3 L Monocytes # (Manual) Eosinophils # (Manual) Basophils # (Manual) PT INR POC ABG pH ABG pH POC ABG pCO2 POC ABG pO2 ABG pO2 ABG Hemoglobin Sodium Potassium Chloride Carbon Dioxide BUN 32 H Creatinine 5.0 H D Glucose 117 H POC Glucose 191 H Calcium 8.0 L Phosphorus Magnesium AST ALT Alkaline Phosphatase Troponin T C-Reactive Protein Total Protein Albumin HDL Cholesterol Miscellaneous Test Crossmatch 08/26/17 08/26/17 08/26/17 05:30 06:44 13:26 WBC RBC Hgb Hct MCV MCH RDW Plt Count Lymph % (Auto) [place] % (Auto) [place] # Seg Neutrophils % Seg Neuts % (Manual) Lymphocytes % (Manual) Monocytes % (Manual) Nucleated RBC % Seg Neutrophils # Seg Neutrophils # Man Lymphocytes # (Manual) Monocytes # (Manual) Eosinophils # (Manual) Basophils # (Manual) PT INR POC ABG pH ABG pH POC ABG pCO2 POC ABG pO2 ABG pO2 ABG Hemoglobin Sodium Potassium 5.2 H Chloride Carbon Dioxide BUN 80 H Creatinine 3.4 H Glucose 193 H POC Glucose 232 H 207 H Calcium 8.3 L Phosphorus 6.80 H D Magnesium 2.60 H AST 135 H ALT Alkaline Phosphatase 211 H Troponin T C-Reactive Protein Total Protein 4.8 L Albumin 2.0 L HDL Cholesterol Miscellaneous Test Crossmatch 08/27/17 08/27/17 08/27/17 01:08 06:20 06:20 WBC 35.0 H RBC 2.75 L Hgb 8.4 L Hct 25.1 L MCV MCH RDW 21.8 H Plt Count Lymph % (Auto) [place] % (Auto) [place] # Seg Neutrophils % Seg Neuts % (Manual) Lymphocytes % (Manual) 4.5 L Monocytes % (Manual) Nucleated RBC % Seg Neutrophils # Seg Neutrophils # Man 31.9 H Lymphocytes # (Manual) Monocytes # (Manual) 1.2 H Eosinophils # (Manual) Basophils # (Manual) PT INR POC ABG pH ABG pH POC ABG pCO2 POC ABG pO2 ABG pO2 ABG Hemoglobin Sodium Potassium Chloride Carbon Dioxide BUN 61 H Creatinine 2.6 H Glucose 184 H POC Glucose 146 H Calcium Phosphorus 4.90 H D Magnesium AST ALT Alkaline Phosphatase Troponin T C-Reactive Protein Total Protein Albumin HDL Cholesterol Miscellaneous Test Crossmatch 08/27/17 08/27/17 08/27/17 07:01 09:17 12:52 WBC RBC Hgb Hct MCV MCH RDW Plt Count Lymph % (Auto) [place] % (Auto) [place] # Seg Neutrophils % Seg Neuts % (Manual) Lymphocytes % (Manual) Monocytes % (Manual) Nucleated RBC % Seg Neutrophils # Seg Neutrophils # Man Lymphocytes # (Manual) Monocytes # (Manual) Eosinophils # (Manual) Basophils # (Manual) PT INR POC ABG pH ABG pH POC ABG pCO2 POC ABG pO2 ABG pO2 ABG Hemoglobin Sodium Potassium Chloride Carbon Dioxide BUN Creatinine Glucose POC Glucose 165 H 198 H 218 H Calcium Phosphorus Magnesium AST ALT Alkaline Phosphatase Troponin T C-Reactive Protein Total Protein Albumin HDL Cholesterol Miscellaneous Test Crossmatch 08/27/17 08/28/17 08/28/17 17:27 02:13 06:46 WBC RBC Hgb Hct MCV MCH RDW Plt Count Lymph % (Auto) [place] % (Auto) [place] # Seg Neutrophils % Seg Neuts % (Manual) Lymphocytes % (Manual) Monocytes % (Manual) Nucleated RBC % Seg Neutrophils # Seg Neutrophils # Man Lymphocytes # (Manual) Monocytes # (Manual) Eosinophils # (Manual) Basophils # (Manual) PT INR POC ABG pH ABG pH POC ABG pCO2 POC ABG pO2 ABG pO2 ABG Hemoglobin Sodium Potassium Chloride Carbon Dioxide BUN Creatinine Glucose POC Glucose 151 H 155 H 230 H Calcium Phosphorus Magnesium AST ALT Alkaline Phosphatase Troponin T C-Reactive Protein Total Protein Albumin HDL Cholesterol Miscellaneous Test Crossmatch 08/28/17 08/28/17 08/28/17 06:53 06:53 08:19 WBC 31.1 H RBC 2.26 L Hgb 6.8 L Hct 20.9 L MCV MCH RDW 21.7 H Plt Count Lymph % (Auto) [place] % (Auto) [place] # Seg Neutrophils % Seg Neuts % (Manual) 83.0 H Lymphocytes % (Manual) 4.0 L Monocytes % (Manual) Nucleated RBC % Seg Neutrophils # Seg Neutrophils # Man 25.8 H Lymphocytes # (Manual) Monocytes # (Manual) Eosinophils # (Manual) Basophils # (Manual) PT INR POC ABG pH ABG pH POC ABG pCO2 POC ABG pO2 ABG pO2 ABG Hemoglobin Sodium Potassium Chloride Carbon Dioxide BUN 81 H Creatinine 3.4 H Glucose 218 H POC Glucose 239 H Calcium Phosphorus 4.90 H Magnesium AST ALT Alkaline Phosphatase Troponin T C-Reactive Protein Total Protein Albumin HDL Cholesterol Miscellaneous Test Crossmatch 08/28/17 08/28/17 08/28/17 11:56 13:05 13:29 WBC RBC Hgb Hct MCV MCH RDW Plt Count Lymph % (Auto) [place] % (Auto) [place] # Seg Neutrophils % Seg Neuts % (Manual) Lymphocytes % (Manual) Monocytes % (Manual) Nucleated RBC % Seg Neutrophils # Seg Neutrophils # Man Lymphocytes # (Manual) Monocytes # (Manual) Eosinophils # (Manual) Basophils # (Manual) PT 16.7 H INR 1.29 H POC ABG pH ABG pH POC ABG pCO2 POC ABG pO2 338 H ABG pO2 ABG Hemoglobin Sodium Potassium Chloride Carbon Dioxide BUN Creatinine Glucose POC Glucose Calcium Phosphorus Magnesium AST ALT Alkaline Phosphatase Troponin T C-Reactive Protein Total Protein Albumin HDL Cholesterol Miscellaneous Test Crossmatch See Detail 08/28/17 08/28/17 08/29/17 16:22 19:20 04:24 WBC RBC Hgb Hct MCV MCH RDW Plt Count Lymph % (Auto) [place] % (Auto) [place] # Seg Neutrophils % Seg Neuts % (Manual) Lymphocytes % (Manual) Monocytes % (Manual) Nucleated RBC % Seg Neutrophils # Seg Neutrophils # Man Lymphocytes # (Manual) Monocytes # (Manual) Eosinophils # (Manual) Basophils # (Manual) PT INR POC ABG pH 7.469 H ABG pH POC ABG pCO2 POC ABG pO2 240 H ABG pO2 ABG Hemoglobin Sodium Potassium Chloride Carbon Dioxide BUN Creatinine Glucose POC Glucose 209 H 195 H Calcium Phosphorus Magnesium AST ALT Alkaline Phosphatase Troponin T C-Reactive Protein Total Protein Albumin HDL Cholesterol Miscellaneous Test Crossmatch 08/29/17 08/29/17 08/29/17 04:30 04:30 12:07 WBC 44.9 H* RBC Hgb Hct MCV MCH RDW 23.1 H Plt Count Lymph % (Auto) [place] % (Auto) [place] # Seg Neutrophils % Seg Neuts % (Manual) 38.0 L Lymphocytes % (Manual) 10.0 L Monocytes % (Manual) 10.0 H Nucleated RBC % 6.0 H Seg Neutrophils # Seg Neutrophils # Man 17.1 H Lymphocytes # (Manual) Monocytes # (Manual) 4.5 H Eosinophils # (Manual) Basophils # (Manual) PT INR POC ABG pH ABG pH POC ABG pCO2 POC ABG pO2 ABG pO2 ABG Hemoglobin Sodium Potassium Chloride Carbon Dioxide BUN 61 H Creatinine 2.4 H Glucose 226 H POC Glucose 200 H Calcium Phosphorus Magnesium AST ALT Alkaline Phosphatase Troponin T C-Reactive Protein Total Protein Albumin HDL Cholesterol Miscellaneous Test Crossmatch 08/29/17 08/29/17 08/29/17 12:30 12:30 17:23 WBC RBC Hgb Hct MCV MCH RDW Plt Count Lymph % (Auto) [place] % (Auto) [place] # Seg Neutrophils % Seg Neuts % (Manual) Lymphocytes % (Manual) Monocytes % (Manual) Nucleated RBC % Seg Neutrophils # Seg Neutrophils # Man Lymphocytes # (Manual) Monocytes # (Manual) Eosinophils # (Manual) Basophils # (Manual) PT INR POC ABG pH ABG pH POC ABG pCO2 POC ABG pO2 ABG pO2 ABG Hemoglobin Sodium Potassium Chloride Carbon Dioxide BUN Creatinine Glucose POC Glucose 270 H Calcium Phosphorus Magnesium AST ALT Alkaline Phosphatase Troponin T C-Reactive Protein 19.10 H Total Protein Albumin HDL Cholesterol Miscellaneous Test Flexitest 1 H Crossmatch 08/30/17 08/30/17 08/30/17 00:10 01:30 03:31 WBC RBC Hgb Hct MCV MCH RDW Plt Count Lymph % (Auto) [place] % (Auto) [place] # Seg Neutrophils % Seg Neuts % (Manual) Lymphocytes % (Manual) Monocytes % (Manual) Nucleated RBC % Seg Neutrophils # Seg Neutrophils # Man Lymphocytes # (Manual) Monocytes # (Manual) Eosinophils # (Manual) Basophils # (Manual) PT INR POC ABG pH 7.168 L 7.335 L ABG pH POC ABG pCO2 72.8 H POC ABG pO2 257 H 117 H ABG pO2 ABG Hemoglobin Sodium Potassium Chloride Carbon Dioxide BUN Creatinine Glucose POC Glucose 245 H Calcium Phosphorus Magnesium AST ALT Alkaline Phosphatase Troponin T C-Reactive Protein Total Protein Albumin HDL Cholesterol Miscellaneous Test Crossmatch 08/30/17 08/30/17 08/30/17 05:20 05:20 05:20 WBC 40.9 H* RBC 3.64 L Hgb Hct MCV MCH RDW 24.3 H Plt Count Lymph % (Auto) [place] % (Auto) [place] # Seg Neutrophils % Seg Neuts % (Manual) 80.0 H Lymphocytes % (Manual) 3.0 L Monocytes % (Manual) Nucleated RBC % 1.0 H Seg Neutrophils # Seg Neutrophils # Man 32.7 H Lymphocytes # (Manual) Monocytes # (Manual) Eosinophils # (Manual) Basophils # (Manual) PT INR POC ABG pH ABG pH POC ABG pCO2 POC ABG pO2 ABG pO2 ABG Hemoglobin Sodium Potassium Chloride Carbon Dioxide BUN 83 H Creatinine 2.9 H Glucose 334 H POC Glucose 309 H Calcium Phosphorus Magnesium AST ALT Alkaline Phosphatase Troponin T C-Reactive Protein Total Protein Albumin HDL Cholesterol Miscellaneous Test Crossmatch 08/30/17 08/30/17 08/31/17 12:18 17:36 00:17 WBC RBC Hgb Hct MCV MCH RDW Plt Count Lymph % (Auto) [place] % (Auto) [place] # Seg Neutrophils % Seg Neuts % (Manual) Lymphocytes % (Manual) Monocytes % (Manual) Nucleated RBC % Seg Neutrophils # Seg Neutrophils # Man Lymphocytes # (Manual) Monocytes # (Manual) Eosinophils # (Manual) Basophils # (Manual) PT INR POC ABG pH ABG pH POC ABG pCO2 POC ABG pO2 ABG pO2 ABG Hemoglobin Sodium Potassium Chloride Carbon Dioxide BUN Creatinine Glucose POC Glucose 273 H 293 H 360 H Calcium Phosphorus Magnesium AST ALT Alkaline Phosphatase Troponin T C-Reactive Protein Total Protein Albumin HDL Cholesterol Miscellaneous Test Crossmatch 08/31/17 08/31/17 08/31/17 05:30 05:30 05:32 WBC 29.9 H RBC 2.89 L Hgb 8.2 L Hct 24.7 L D MCV MCH RDW 24.4 H Plt Count Lymph % (Auto) [place] % (Auto) [place] # Seg Neutrophils % Seg Neuts % (Manual) Lymphocytes % (Manual) 2.0 L Monocytes % (Manual) Nucleated RBC % 2.0 H Seg Neutrophils # Seg Neutrophils # Man 18.5 H Lymphocytes # (Manual) 0.6 L Monocytes # (Manual) 0.9 H Eosinophils # (Manual) Basophils # (Manual) PT INR POC ABG pH ABG pH POC ABG pCO2 POC ABG pO2 ABG pO2 ABG Hemoglobin Sodium Potassium Chloride Carbon Dioxide BUN 62 H Creatinine 2.2 H Glucose 245 H POC Glucose 257 H Calcium Phosphorus 2.10 L D Magnesium 1.60 L AST ALT Alkaline Phosphatase Troponin T C-Reactive Protein Total Protein Albumin HDL Cholesterol Miscellaneous Test Crossmatch 08/31/17 08/31/17 08/31/17 11:56 12:05 18:14 WBC 32.5 H RBC 3.19 L Hgb 8.8 L Hct 27.9 L MCV MCH RDW 24.9 H Plt Count Lymph % (Auto) [place] % (Auto) [place] # Seg Neutrophils % Seg Neuts % (Manual) Lymphocytes % (Manual) 1.0 L Monocytes % (Manual) 12.0 H Nucleated RBC % 1.0 H Seg Neutrophils # Seg Neutrophils # Man 13.3 H Lymphocytes # (Manual) 0.3 L Monocytes # (Manual) 3.9 H Eosinophils # (Manual) Basophils # (Manual) PT INR POC ABG pH ABG pH POC ABG pCO2 POC ABG pO2 ABG pO2 ABG Hemoglobin Sodium Potassium Chloride Carbon Dioxide BUN Creatinine Glucose POC Glucose 245 H Calcium Phosphorus Magnesium AST ALT Alkaline Phosphatase Troponin T C-Reactive Protein Total Protein Albumin HDL Cholesterol Miscellaneous Test Crossmatch See Detail 08/31/17 08/31/17 08/31/17 18:14 18:15 23:53 WBC RBC Hgb Hct MCV MCH RDW Plt Count Lymph % (Auto) [place] % (Auto) [place] # Seg Neutrophils % Seg Neuts % (Manual) Lymphocytes % (Manual) Monocytes % (Manual) Nucleated RBC % Seg Neutrophils # Seg Neutrophils # Man Lymphocytes # (Manual) Monocytes # (Manual) Eosinophils # (Manual) Basophils # (Manual) PT 15.1 H INR POC ABG pH ABG pH POC ABG pCO2 POC ABG pO2 ABG pO2 ABG Hemoglobin Sodium 136 L Potassium Chloride Carbon Dioxide 21 L BUN 69 H Creatinine 2.3 H Glucose 227 H POC Glucose 301 H Calcium Phosphorus 2.40 L Magnesium 1.50 L AST 143 H ALT 114 H Alkaline Phosphatase 267 H Troponin T C-Reactive Protein Total Protein 4.1 L Albumin 1.8 L HDL Cholesterol Miscellaneous Test Crossmatch 09/01/17 09/01/17 09/01/17 05:00 05:00 05:20 WBC 33.9 H RBC 2.85 L Hgb 7.8 L Hct 24.8 L MCV MCH 27 L RDW 23.9 H Plt Count Lymph % (Auto) [place] % (Auto) [place] # Seg Neutrophils % Seg Neuts % (Manual) Lymphocytes % (Manual) 5.0 L Monocytes % (Manual) Nucleated RBC % Seg Neutrophils # Seg Neutrophils # Man 23.1 H Lymphocytes # (Manual) Monocytes # (Manual) Eosinophils # (Manual) Basophils # (Manual) PT INR POC ABG pH ABG pH 7.348 L POC ABG pCO2 POC ABG pO2 ABG pO2 70.2 L ABG Hemoglobin 7.5 L Sodium Potassium Chloride Carbon Dioxide BUN 51 H Creatinine 1.8 H Glucose 195 H POC Glucose Calcium Phosphorus 1.70 L D Magnesium 1.60 L AST 80 H ALT 82 H Alkaline Phosphatase 243 H Troponin T C-Reactive Protein Total Protein 4.2 L Albumin 1.7 L HDL Cholesterol Miscellaneous Test Crossmatch 09/01/17 05:47 WBC RBC Hgb Hct MCV MCH RDW Plt Count Lymph % (Auto) [place] % (Auto) [place] # Seg Neutrophils % Seg Neuts % (Manual) Lymphocytes % (Manual) Monocytes % (Manual) Nucleated RBC % Seg Neutrophils # Seg Neutrophils # Man Lymphocytes # (Manual) Monocytes # (Manual) Eosinophils # (Manual) Basophils # (Manual) PT INR POC ABG pH ABG pH POC ABG pCO2 POC ABG pO2 ABG pO2 ABG Hemoglobin Sodium Potassium Chloride Carbon Dioxide BUN Creatinine Glucose POC Glucose 230 H Calcium Phosphorus Magnesium AST ALT Alkaline Phosphatase Troponin T C-Reactive Protein Total Protein Albumin HDL Cholesterol Miscellaneous Test Crossmatch
[2017-09-01] MEDS ORDERED: KPHOS 15 MMOL in NACL 0.9% 250ML 250 ML IV ONE (11:30)
[2017-09-01] MEDS: MYCAMINE 100 MG in NACL 0.9% 100 ML IV SCH (11:46)
--- NOTE | 2017-09-01 12:11 | Progress Note ---
Assessment and Plan POD #1 s/p ex lap, abdominal wash out and abdominal wall closure after wound dehiscence 2 weeks s/p ex lap for gastric perforation and sbo. afebrile, stable with decrease requirements of pressor support. will continue wound dressings will continue to wean pressors and vent as tolerated continue TPN for nutrition, due to her malnutrition, she is having pronounced delay in healing. would not start tube feeds until the integrity of the healing of the stomach perforation is tested. - Patient Problems (1) SBO (small bowel obstruction) Current Visit: Yes Status: Acute Subjective Date of service: 09/01/17 Patient Reports: Positive: afebrile Objective Vital Signs - 12hr 09/01/17 09/01/17 09/01/17 00:16 00:30 00:40 Temperature Pulse Rate 93 H 92 H 94 H Pulse Rate [ Anterior Bilateral Throughout] Respiratory 21 14 Rate Respiratory Rate [Anterior Bilateral Throughout] Blood Pressure 157/125 157/125 71/45 O2 Sat by Pulse 100 100 100 Oximetry 09/01/17 09/01/17 09/01/17 00:45 01:00 01:16 Temperature Pulse Rate 89 92 H 92 H Pulse Rate [ Anterior Bilateral Throughout] Respiratory 17 14 17 Rate Respiratory Rate [Anterior Bilateral Throughout] Blood Pressure 71/45 77/46 77/46 O2 Sat by Pulse 100 100 97 Oximetry 09/01/17 09/01/17 09/01/17 01:30 01:46 02:00 Temperature Pulse Rate 93 H 93 H 113 H Pulse Rate [ Anterior Bilateral Throughout] Respiratory 19 15 14 Rate Respiratory Rate [Anterior Bilateral Throughout] Blood Pressure 104/35 123/96 O2 Sat by Pulse 100 100 100 Oximetry 09/01/17 09/01/17 09/01/17 02:16 02:30 02:36 Temperature Pulse Rate 102 H 106 H Pulse Rate [ 99 H Anterior Bilateral Throughout] Respiratory 21 12 Rate Respiratory 20 Rate [Anterior Bilateral Throughout] Blood Pressure 132/79 131/103 O2 Sat by Pulse 100 100 Oximetry 09/01/17 09/01/17 09/01/17 02:42 02:45 03:00 Temperature Pulse Rate 92 H 92 H Pulse Rate [ 95 H Anterior Bilateral Throughout] Respiratory 17 20 Rate Respiratory 20 Rate [Anterior Bilateral Throughout] Blood Pressure 135/73 133/66 O2 Sat by Pulse 100 100 Oximetry 09/01/17 09/01/1717 03:15 03:30 03:45 Temperature Pulse Rate 92 H 90 90 Pulse Rate [ Anterior Bilateral Throughout] Respiratory 20 19 20 Rate Respiratory Rate [Anterior Bilateral Throughout] Blood Pressure 129/64 118/66 124/59 O2 Sat by Pulse 100 100 100 Oximetry 09/01/17 09/01/17 09/01/17 03:56 04:00 04:15 Temperature 98.9 F Pulse Rate 84 86 Pulse Rate [ Anterior Bilateral Throughout] Respiratory 20 20 Rate Respiratory Rate [Anterior Bilateral Throughout] Blood Pressure 124/62 125/60 O2 Sat by Pulse 100 100 Oximetry 09/01/17 09/01/17 09/01/17 04:30 04:45 05:00 Temperature Pulse Rate 85 85 85 Pulse Rate [ Anterior Bilateral Throughout] Respiratory 20 20 20 Rate Respiratory Rate [Anterior Bilateral Throughout] Blood Pressure 122/58 122/62 127/60 O2 Sat by Pulse 100 100 100 Oximetry 09/01/17 09/01/17 09/01/17 05:15 05:16 05:30 Temperature Pulse Rate 84 84 86 Pulse Rate [ Anterior Bilateral Throughout] Respiratory 20 20 Rate Respiratory Rate [Anterior Bilateral Throughout] Blood Pressure 125/69 125/69 113/57 O2 Sat by Pulse 100 100 100 Oximetry 09/01/17 09/01/17 09/01/17 05:45 06:00 06:15 Temperature Pulse Rate 87 87 84 Pulse Rate [ Anterior Bilateral Throughout] Respiratory 20 20 20 Rate Respiratory Rate [Anterior Bilateral Throughout] Blood Pressure 122/59 118/61 121/59 O2 Sat by Pulse 100 100 100 Oximetry 09/01/17 09/01/17 09/01/17 06:30 06:45 07:00 Temperature Pulse Rate 84 82 84 Pulse Rate [ Anterior Bilateral Throughout] Respiratory 20 20 20 Rate Respiratory Rate [Anterior Bilateral Throughout] Blood Pressure 131/64 129/66 139/67 O2 Sat by Pulse 100 100 100 Oximetry 09/01/17 09/01/17 09/01/17 07:15 07:30 07:45 Temperature Pulse Rate 85 84 85 Pulse Rate [ Anterior Bilateral Throughout] Respiratory 20 17 19 Rate Respiratory Rate [Anterior Bilateral Throughout] Blood Pressure 131/67 119/65 124/66 O2 Sat by Pulse 100 100 100 Oximetry 09/01/17 09/01/17 09/01/17 08:00 08:15 08:30 Temperature 98.4 F Pulse Rate 85 86 84 Pulse Rate [ Anterior Bilateral Throughout] Respiratory 20 15 20 Rate Respiratory Rate [Anterior Bilateral Throughout] Blood Pressure 109/51 112/58 114/56 O2 Sat by Pulse 100 100 100 Oximetry 09/01/17 09/01/17 09/01/17 08:45 09:00 09:15 Temperature Pulse Rate 86 86 85 Pulse Rate [ Anterior Bilateral Throughout] Respiratory 12 12 19 Rate Respiratory Rate [Anterior Bilateral Throughout] Blood Pressure 123/52 123/52 108/61 O2 Sat by Pulse 100 100 100 Oximetry 09/01/17 09/01/17 09/01/17 09:30 09:46 10:00 Temperature Pulse Rate 86 86 86 Pulse Rate [ Anterior Bilateral Throughout] Respiratory 21 22 17 Rate Respiratory Rate [Anterior Bilateral Throughout] Blood Pressure 115/58 115/56 118/62 O2 Sat by Pulse 100 100 100 Oximetry 09/01/17 09/01/17 09/01/17 10:15 10:30 10:45 Temperature Pulse Rate 85 85 84 Pulse Rate [ Anterior Bilateral Throughout] Respiratory 20 19 21 Rate Respiratory Rate [Anterior Bilateral Throughout] Blood Pressure 97/62 97/55 99/54 O2 Sat by Pulse 100 100 100 Oximetry 09/01/17 09/01/17 09/01/17 10:53 11:00 11:16 Temperature Pulse Rate 87 85 92 H Pulse Rate [ Anterior Bilateral Throughout] Respiratory 20 11 L 15 Rate Respiratory Rate [Anterior Bilateral Throughout] Blood Pressure 99/54 99/54 104/52 O2 Sat by Pulse 97 98 100 Oximetry 09/01/17 09/01/17 09/01/17 11:30 11:45 11:56 Temperature 97.8 F Pulse Rate 89 87 Pulse Rate [ Anterior Bilateral Throughout] Respiratory 18 19 Rate Respiratory Rate [Anterior Bilateral Throughout] Blood Pressure 104/52 117/63 O2 Sat by Pulse 100 100 Oximetry 09/01/17 12:00 Temperature Pulse Rate 90 Pulse Rate [ Anterior Bilateral Throughout] Respiratory 14 Rate Respiratory Rate [Anterior Bilateral Throughout] Blood Pressure 117/63 O2 Sat by Pulse 99 Oximetry - General physical appearance no distress - Respiratory normal expansion, normal respiratory effort, other (intubated, cpap 40%FiO2) - Abdomen other (midline dressing with serosanguinous drainage. MERVIN drain sero-sang, G- tube adn NGT bilious. no rebound or guarding) - Neurologic other (responds to verbal commands) - Labs 10/08/17 05:00 09/01/17 05:00 Diabetes panel 08/31/17 09/01/17 Range/Units 18:14 05:00 Sodium 136 L 145 D (137-145) mmol/L Potassium 4.3 3.6 (3.6-5.0) mmol/L Chloride 98.1 106.6 (98-107) mmol/L Carbon Dioxide 21 L 25 (22-30) mmol/L BUN 69 H 51 H (7-17) mg/dL Creatinine 2.3 H 1.8 H (0.7-1.2) mg/dL Glucose 227 H 195 H (65-100) mg/dL Calcium 8.5 8.6 (8.4-10.2) mg/dL AST 143 H 80 H (5-40) units/L ALT 114 H 82 H (7-56) units/L Alkaline Phosphatase 267 H 243 H (35-129) units/L Total Protein 4.1 L 4.2 L (6.3-8.2) g/dL Albumin 1.8 L 1.7 L (3.9-5) g/dL Calcium panel 08/31/17 09/01/17 Range/Units 18:14 05:00 Calcium 8.5 8.6 (8.4-10.2) mg/dL Phosphorus 2.40 L 1.70 L D (2.5-4.5) mg/dL Albumin 1.8 L 1.7 L (3.9-5) g/dL Pituitary panel 08/31/17 09/01/17 Range/Units 18:14 05:00 Sodium 136 L 145 D (137-145) mmol/L Potassium 4.3 3.6 (3.6-5.0) mmol/L Chloride 98.1 106.6 (98-107) mmol/L Carbon Dioxide 21 L 25 (22-30) mmol/L BUN 69 H 51 H (7-17) mg/dL Creatinine 2.3 H 1.8 H (0.7-1.2) mg/dL Glucose 227 H 195 H (65-100) mg/dL Calcium 8.5 8.6 (8.4-10.2) mg/dL Adrenal panel 08/31/17 09/01/17 Range/Units 18:14 05:00 Sodium 136 L 145 D (137-145) mmol/L Potassium 4.3 3.6 (3.6-5.0) mmol/L Chloride 98.1 106.6 (98-107) mmol/L Carbon Dioxide 21 L 25 (22-30) mmol/L BUN 69 H 51 H (7-17) mg/dL Creatinine 2.3 H 1.8 H (0.7-1.2) mg/dL Glucose 227 H 195 H (65-100) mg/dL Calcium 8.5 8.6 (8.4-10.2) mg/dL Total Bilirubin 0.80 0.80 (0.1-1.2) mg/dL AST 143 H 80 H (5-40) units/L ALT 114 H 82 H (7-56) units/L Alkaline Phosphatase 267 H 243 H (35-129) units/L Total Protein 4.1 L 4.2 L (6.3-8.2) g/dL Albumin 1.8 L 1.7 L (3.9-5) g/dL
[2017-09-01] MEDS: ZYVOX 600MG/300ML 600 MG/300 ML BAG IV SCH ×2 (12:45→22:13)
[2017-09-01] MEDS ORDERED: TPN ADULT 1,800 ML IV SCH (20:00)
--- NOTE | 2017-09-01 21:51 | Progress Note ---
Assessment and Plan - Patient Problems (1) Leukocytosis Current Visit: Yes Status: Acute Qualifiers: Leukocytosis type: L Plan to address problem: See notes above. make sure that PD access is clean also. see notes. Probably infection from the infected PD catheter. improving. back up again. up/down (2) Anemia Current Visit: Yes Status: Acute Qualifiers: Anemia type: A Iron deficiency anemia type: I Vitamin B12 deficiency anemia type: V Folate deficiency anemia type: F Bone marrow failure anemia type: B Hemolytic anemia type: H Other causes of anemia: O Chronic kidney disease stage: C Plan to address problem: see notes , monitor labs,. see notes above. continue to monitor labs with you. blood transfusion. S/P replacement transfusion. fair. Subjective Date of service: 09/01/17 Principal diagnosis: Interval history: Patient seen today/examined, labs reviewed, case d/w she, and family.complaints of abdominal pain. Patient resting in bed in the ICU, post vascular procedure. labs reviewed, Reactive thrombocytosis, anemia of CD, leukocytosis from infection vs inflamatory process. Patient seen/examined, in bed in the ICU, on the vent post surgery.Labs reviewed , notes reviewed. will continue to monitor labs/patient with you. Replacement transfusion, if /when indicated. patient seen/examined, SBP75, on pressors., lethargic, on the vent, labs reviewed, wbc 39,000 Patient seen/examined, case reviewed, d/w her sister at the bed side. Patient seen/examined, labs reviewed, notes reviewed. severe septic shock from infected PD catheter The high wbc is all infection related. H?H low, and may get replacement transfusion with the next HD. Prognosis remain quite poor. Patient seen/examined, extubated, now on V Mask. labs reviewed. patient seen/examined, resting in bed, still some what lethargic . labs reviewed. Patient seen/examined, resting in bed., some difficulty with breathing./ lethargic. patient seen/examined, resting in bed, looked much better labs reviewed, and fair over all. Patient seen/examined, resting in bed, labs reviewed, case d/w her. Patient seen/examined, resting in bed on BIPAP., labs reviewed. patient seen/examined, resting in bed, on Bipap.labs reviewed, fairly stable. Patient seen today, resting in bed, labs reviewed, H/H low, and transfusion already ordered. Patient seen/examined, resting in bed, transferred back to the unit, due to resp failure. She is now on venting mask. had blood replacement done. Patient seen/examined in the ICU.labs reviewed. patient intubated this am. patient resting in bed.no new issues. Patient seen/examined in the ICU, on vent,Not readily responsive. Objective - Constitutional Vitals: Vital Signs - 12hr 09/01/17 09/01/17 09/01/17 10:00 10:15 10:30 Temperature Pulse Rate 86 85 85 Pulse Rate [ Anterior Bilateral Throughout] Pulse Rate [ Apical] Pulse Rate [ From Monitor] Respiratory 17 20 19 Rate Respiratory Rate [Anterior Bilateral Throughout] Blood Pressure 118/62 97/62 97/55 O2 Sat by Pulse 100 100 100 Oximetry 09/01/17 09/01/17 09/01/17 10:45 10:50 10:53 Temperature Pulse Rate 84 87 Pulse Rate [ 86 Anterior Bilateral Throughout] Pulse Rate [ Apical] Pulse Rate [ From Monitor] Respiratory 21 20 Rate Respiratory 20 Rate [Anterior Bilateral Throughout] Blood Pressure 99/54 99/54 O2 Sat by Pulse 100 97 Oximetry 09/01/17 09/01/17 09/01/17 11:00 11:05 11:16 Temperature Pulse Rate 85 92 H Pulse Rate [ 86 Anterior Bilateral Throughout] Pulse Rate [ Apical] Pulse Rate [ From Monitor] Respiratory 11 L 15 Rate Respiratory 20 Rate [Anterior Bilateral Throughout] Blood Pressure 99/54 104/52 O2 Sat by Pulse 98 100 Oximetry 09/01/17 09/01/17 09/01/17 11:30 11:45 11:56 Temperature 97.8 F Pulse Rate 89 87 Pulse Rate [ Anterior Bilateral Throughout] Pulse Rate [ Apical] Pulse Rate [ From Monitor] Respiratory 18 19 Rate Respiratory Rate [Anterior Bilateral Throughout] Blood Pressure 104/52 117/63 O2 Sat by Pulse 100 100 Oximetry 09/01/17 09/01/17 09/01/17 12:00 12:15 12:30 Temperature Pulse Rate 90 89 86 Pulse Rate [ Anterior Bilateral Throughout] Pulse Rate [ 87 Apical] Pulse Rate [ 89 From Monitor] Respiratory 14 15 14 Rate Respiratory Rate [Anterior Bilateral Throughout] Blood Pressure 117/63 98/55 101/59 O2 Sat by Pulse 99 100 100 Oximetry 09/01/17 09/01/17 09/01/17 12:45 13:00 13:15 Temperature Pulse Rate 84 84 84 Pulse Rate [ Anterior Bilateral Throughout] Pulse Rate [ Apical] Pulse Rate [ From Monitor] Respiratory 15 20 19 Rate Respiratory Rate [Anterior Bilateral Throughout] Blood Pressure 110/42 117/61 109/56 O2 Sat by Pulse 100 100 100 Oximetry 09/01/17 09/01/17 09/01/17 13:30 13:45 14:00 Temperature Pulse Rate 83 83 86 Pulse Rate [ 70 Anterior Bilateral Throughout] Pulse Rate [ Apical] Pulse Rate [ From Monitor] Respiratory 13 14 12 Rate Respiratory 20 Rate [Anterior Bilateral Throughout] Blood Pressure 109/56 111/68 100/53 O2 Sat by Pulse 100 100 100 Oximetry 09/01/17 09/01/17 09/01/17 14:16 14:20 14:30 Temperature Pulse Rate 85 85 Pulse Rate [ 70 Anterior Bilateral Throughout] Pulse Rate [ Apical] Pulse Rate [ From Monitor] Respiratory 13 18 Rate Respiratory 20 Rate [Anterior Bilateral Throughout] Blood Pressure 66/43 66/43 O2 Sat by Pulse 100 100 Oximetry 09/01/17 09/01/17 09/01/17 14:45 15:00 15:16 Temperature Pulse Rate 84 87 84 Pulse Rate [ Anterior Bilateral Throughout] Pulse Rate [ Apical] Pulse Rate [ From Monitor] Respiratory 16 17 14 Rate Respiratory Rate [Anterior Bilateral Throughout] Blood Pressure 97/58 86/56 108/48 O2 Sat by Pulse 100 99 100 Oximetry 09/01/17 09/01/17 09/01/17 15:30 15:45 16:00 Temperature 98.1 F Pulse Rate 90 90 89 Pulse Rate [ Anterior Bilateral Throughout] Pulse Rate [ Apical] Pulse Rate [ From Monitor] Respiratory 12 12 12 Rate Respiratory Rate [Anterior Bilateral Throughout] Blood Pressure 114/58 115/57 113/56 O2 Sat by Pulse 100 100 100 Oximetry 09/01/17 09/01/17 09/01/17 16:15 16:30 16:45 Temperature Pulse Rate 89 91 H 87 Pulse Rate [ Anterior Bilateral Throughout] Pulse Rate [ Apical] Pulse Rate [ From Monitor] Respiratory 13 15 13 Rate Respiratory Rate [Anterior Bilateral Throughout] Blood Pressure 110/52 93/62 98/52 O2 Sat by Pulse 100 100 98 Oximetry 09/01/17 09/01/17 09/01/17 17:00 17:15 17:30 Temperature Pulse Rate 88 94 H 93 H Pulse Rate [ Anterior Bilateral Throughout] Pulse Rate [ Apical] Pulse Rate [ From Monitor] Respiratory 13 14 14 Rate Respiratory Rate [Anterior Bilateral Throughout] Blood Pressure 107/51 96/58 85/40 O2 Sat by Pulse 99 93 100 Oximetry 09/01/17 09/01/17 09/01/17 17:45 18:00 18:16 Temperature Pulse Rate 90 91 H 91 H Pulse Rate [ Anterior Bilateral Throughout] Pulse Rate [ Apical] Pulse Rate [ From Monitor] Respiratory 14 11 L 13 Rate Respiratory Rate [Anterior Bilateral Throughout] Blood Pressure 90/49 90/49 87/48 O2 Sat by Pulse 99 100 100 Oximetry 09/01/17 09/01/17 09/01/17 18:20 18:30 18:45 Temperature Pulse Rate 93 H 88 90 Pulse Rate [ Anterior Bilateral Throughout] Pulse Rate [ Apical] Pulse Rate [ From Monitor] Respiratory 26 H 14 14 Rate Respiratory Rate [Anterior Bilateral Throughout] Blood Pressure 109/79 87/48 90/60 O2 Sat by Pulse 100 100 100 Oximetry 09/01/17 09/01/17 09/01/17 19:00 19:41 19:50 Temperature Pulse Rate 93 H 95 H Pulse Rate [ 92 H 95 H Anterior Bilateral Throughout] Pulse Rate [ Apical] Pulse Rate [ From Monitor] Respiratory 18 Rate Respiratory 28 H 24 Rate [Anterior Bilateral Throughout] Blood Pressure 109/79 110/83 O2 Sat by Pulse 100 100 Oximetry 09/01/17 20:00 Temperature 98.4 F Pulse Rate Pulse Rate [ Anterior Bilateral Throughout] Pulse Rate [ Apical] Pulse Rate [ From Monitor] Respiratory Rate Respiratory Rate [Anterior Bilateral Throughout] Blood Pressure O2 Sat by Pulse Oximetry General appearance: Present: severe distress - EENT Eyes: PERRL, EOM intact ENT: hearing intact, clear oral mucosa Ears: bilateral: normal - Neck Neck: supple, normal ROM - Respiratory Respiratory: bilateral: diminished (on the vent.) - Breasts Breasts: deferred - Cardiovascular Rhythm: regular Heart Sounds: Present: S1 & S2. Absent: gallop, rub Extremities: pulses intact, No edema, normal color, Full ROM - Gastrointestinal General gastrointestinal: Present: soft, non-tender, non-distended, normal bowel sounds Rectal Exam: deferred - Genitourinary Female genitourinary: deferred - Integumentary Integumentary: clear, warm, dry - Neurologic Neurologic: moves all extremities - Psychiatric Psychiatric: appropriate mood/affect - Labs CBC & Chem 7: 09/01/17 05:00 09/01/17 05:00 Labs: Abnormal lab results 08/31/17 09/01/17 09/01/17 Range/Units 23:53 05:00 05:00 WBC 33.9 H (4.5-11.0) K/mm3 RBC 2.85 L (3.65-5.03) M/mm3 Hgb 7.8 L (10.1-14.3) gm/dl Hct 24.8 L (30.3-42.9) % MCH 27 L (28-32) pg RDW 23.9 H (13.2-15.2) % Lymphocytes % (Manual) 5.0 L (13.4-35.0) % Seg Neutrophils # Man 23.1 H (1.8-7.7) K/mm3 ABG pH (7.350-7.450) pH Units ABG pO2 (80.0-90.0) mm Hg ABG Hemoglobin (12.0-16.0) gm/dl BUN 51 H (7-17) mg/dL Creatinine 1.8 H (0.7-1.2) mg/dL Glucose 195 H (65-100) mg/dL POC Glucose 301 H (70-105) Phosphorus 1.70 L D (2.5-4.5) mg/dL Magnesium 1.60 L (1.7-2.3) mg/dL AST 80 H (5-40) units/L ALT 82 H (7-56) units/L Alkaline Phosphatase 243 H (35-129) units/L Total Protein 4.2 L (6.3-8.2) g/dL Albumin 1.7 L (3.9-5) g/dL 09/01/17 09/01/17 09/01/17 Range/Units 05:20 05:47 11:37 WBC (4.5-11.0) K/mm3 RBC (3.65-5.03) M/mm3 Hgb (10.1-14.3) gm/dl Hct (30.3-42.9) % MCH (28-32) pg RDW (13.2-15.2) % Lymphocytes % (Manual) (13.4-35.0) % Seg Neutrophils # Man (1.8-7.7) K/mm3 ABG pH 7.348 L (7.350-7.450) pH Units ABG pO2 70.2 L (80.0-90.0) mm Hg ABG Hemoglobin 7.5 L (12.0-16.0) gm/dl BUN (7-17) mg/dL Creatinine (0.7-1.2) mg/dL Glucose (65-100) mg/dL POC Glucose 230 H 254 H (70-105) Phosphorus (2.5-4.5) mg/dL Magnesium (1.7-2.3) mg/dL AST (5-40) units/L ALT (7-56) units/L Alkaline Phosphatase (35-129) units/L Total Protein (6.3-8.2) g/dL Albumin (3.9-5) g/dL 09/01/17 Range/Units 17:39 WBC (4.5-11.0) K/mm3 RBC (3.65-5.03) M/mm3 Hgb (10.1-14.3) gm/dl Hct (30.3-42.9) % MCH (28-32) pg RDW (13.2-15.2) % Lymphocytes % (Manual) (13.4-35.0) % Seg Neutrophils # Man (1.8-7.7) K/mm3 ABG pH (7.350-7.450) pH Units ABG pO2 (80.0-90.0) mm Hg ABG Hemoglobin (12.0-16.0) gm/dl BUN (7-17) mg/dL Creatinine (0.7-1.2) mg/dL Glucose (65-100) mg/dL POC Glucose 297 H (70-105) Phosphorus (2.5-4.5) mg/dL Magnesium (1.7-2.3) mg/dL AST (5-40) units/L ALT (7-56) units/L Alkaline Phosphatase (35-129) units/L Total Protein (6.3-8.2) g/dL Albumin (3.9-5) g/dL
[2017-09-02] MEDS: DUONEB *Not for PRN Use IH SCH ×4 (02:03→20:02)
[2017-09-02] MEDS: fentaNYL DRIP Premix 2,000 MCG/100 ML BAG IV SCH ×3 (02:23→19:54)
[2017-09-02 06:05] LABS: ABG Base Excess -2.9 mmol/L (-2.0-3.0); ABG HCO3 21.4 mmol/L (20.0-26.0); ABG Oxygen Saturation 98.5 % (95.0-99.0); ABG PCO2 34.3 mm Hg; ABG PH 7.413 pH Units (7.350-7.450); ABG PO2 124.8 mm Hg (80.0-90.0)
[2017-09-02 07:43] LABS: Calcium 8.2 mg/dL (8.4-10.2); Chloride 102.7 mmol/L (98-107); Magnesium 1.9 mg/dL (1.7-2.3); Phosphorous 3.2 mg/dL (2.5-4.5); Potassium 4.7 mmol/L (3.6-5.0)
--- NOTE | 2017-09-02 07:57 | Progress Note ---
Assessment and Plan - Patient Problems (1) ESRD (end stage renal disease) on dialysis Current Visit: Yes Status: Acute Plan to address problem: Continue HD on MWF and Isolated UF on TTS. Patient is on TPN. (2) Hyperkalemia Current Visit: Yes Status: Acute Plan to address problem: K level is better. (3) Anemia Current Visit: No Status: Chronic Qualifiers: Anemia type: due to chronic kidney disease Iron deficiency anemia type: I Vitamin B12 deficiency anemia type: V Folate deficiency anemia type: F Bone marrow failure anemia type: B Hemolytic anemia type: H Other causes of anemia: O Chronic kidney disease stage: on chronic dialysis Qualified Code(s ): N18.6 - End stage renal disease; D63.1 - Anemia in chronic kidney disease; Z99.2 - Dependence on renal dialysis Plan to address problem: Epogen. S/p PRBC. (4) Hypotension Current Visit: Yes Status: Chronic Qualifiers: Hypotension type: H Trimester: T Plan to address problem: On Levophed. (5) Volume overload Current Visit: Yes Status: Acute Qualifiers: Hypervolemia type: H Plan to address problem: UF as tolerated. (6) Leukocytosis Current Visit: Yes Status: Acute Qualifiers: Leukocytosis type: unspecified Qualified Code(s): D72.829 - Elevated white blood cell count, unspecified (7) Acute respiratory failure with hypoxemia Current Visit: Yes Status: Acute Plan to address problem: On the vent. (8) Sepsis Current Visit: Yes Status: Acute Qualifiers: Sepsis type: S Subjective Date of service: 09/02/17 Principal diagnosis: Interval history: Patient was seen and examined at the bedside. Patient remain intubated. Objective - Vital Signs Vital signs: Vital Signs - 12hr 09/01/17 09/01/17 09/01/17 20:00 20:15 20:30 Temperature 98.4 F Pulse Rate 101 H 99 H 95 H Pulse Rate [ Anterior Bilateral Throughout] Pulse Rate [ 82 Apical] Respiratory 18 18 20 Rate Respiratory Rate [Anterior Bilateral Throughout] Respiratory Rate [ Generalized] Blood Pressure 110/83 130/90 90/47 O2 Sat by Pulse 100 100 100 Oximetry 09/01/17 09/01/17 09/01/17 20:46 21:00 21:15 Temperature Pulse Rate 94 H 92 H 91 H Pulse Rate [ Anterior Bilateral Throughout] Pulse Rate [ Apical] Respiratory 20 19 10 L Rate Respiratory Rate [Anterior Bilateral Throughout] Respiratory Rate [ Generalized] Blood Pressure 90/51 99/67 109/59 O2 Sat by Pulse 100 100 100 Oximetry 09/01/17 09/01/17 09/01/17 21:30 21:45 22:00 Temperature Pulse Rate 91 H 90 95 H Pulse Rate [ Anterior Bilateral Throughout] Pulse Rate [ Apical] Respiratory 21 14 22 Rate Respiratory Rate [Anterior Bilateral Throughout] Respiratory 18 Rate [ Generalized] Blood Pressure 114/51 118/57 106/55 O2 Sat by Pulse 100 100 100 Oximetry 09/01/17 09/01/17 09/01/17 22:15 22:30 22:45 Temperature Pulse Rate 90 92 H 90 Pulse Rate [ Anterior Bilateral Throughout] Pulse Rate [ Apical] Respiratory 17 19 20 Rate Respiratory Rate [Anterior Bilateral Throughout] Respiratory Rate [ Generalized] Blood Pressure 122/56 111/50 121/57 O2 Sat by Pulse 100 100 100 Oximetry 09/01/17 09/01/17 09/01/17 23:00 23:15 23:30 Temperature Pulse Rate 89 91 H 92 H Pulse Rate [ Anterior Bilateral Throughout] Pulse Rate [ Apical] Respiratory 19 21 21 Rate Respiratory Rate [Anterior Bilateral Throughout] Respiratory Rate [ Generalized] Blood Pressure 125/58 121/50 122/60 O2 Sat by Pulse 100 100 100 Oximetry 09/01/17 09/02/17 09/02/17 23:45 00:00 00:08 Temperature 98.9 F Pulse Rate 88 92 H 91 H Pulse Rate [ Anterior Bilateral Throughout] Pulse Rate [ 79 Apical] Respiratory 19 18 20 Rate Respiratory Rate [Anterior Bilateral Throughout] Respiratory Rate [ Generalized] Blood Pressure 123/53 124/56 124/56 O2 Sat by Pulse 100 100 100 Oximetry 09/02/17 09/02/17 09/02/17 00:15 00:30 00:45 Temperature Pulse Rate 92 H 88 91 H Pulse Rate [ Anterior Bilateral Throughout] Pulse Rate [ Apical] Respiratory 20 21 21 Rate Respiratory Rate [Anterior Bilateral Throughout] Respiratory Rate [ Generalized] Blood Pressure 121/45 130/54 124/59 O2 Sat by Pulse 100 100 100 Oximetry 09/02/17 09/02/17 09/02/17 01:00 01:15 01:30 Temperature Pulse Rate 89 92 H 90 Pulse Rate [ Anterior Bilateral Throughout] Pulse Rate [ Apical] Respiratory 20 20 20 Rate Respiratory Rate [Anterior Bilateral Throughout] Respiratory Rate [ Generalized] Blood Pressure 137/50 130/56 123/54 O2 Sat by Pulse 100 100 100 Oximetry 09/02/17 09/02/17 09/02/17 01:45 02:00 02:10 Temperature Pulse Rate 89 90 Pulse Rate [ 90 94 H Anterior Bilateral Throughout] Pulse Rate [ Apical] Respiratory 21 20 Rate Respiratory 20 20 Rate [Anterior Bilateral Throughout] Respiratory Rate [ Generalized] Blood Pressure 127/58 127/58 O2 Sat by Pulse 100 100 Oximetry 09/02/17 09/02/17 09/02/17 02:15 02:30 02:45 Temperature Pulse Rate 88 92 H 86 Pulse Rate [ Anterior Bilateral Throughout] Pulse Rate [ Apical] Respiratory 20 15 21 Rate Respiratory Rate [Anterior Bilateral Throughout] Respiratory Rate [ Generalized] Blood Pressure 125/52 125/52 106/49 O2 Sat by Pulse 100 100 100 Oximetry 09/02/17 09/02/17 09/02/17 03:00 03:15 03:30 Temperature Pulse Rate 89 85 86 Pulse Rate [ Anterior Bilateral Throughout] Pulse Rate [ Apical] Respiratory 15 19 20 Rate Respiratory Rate [Anterior Bilateral Throughout] Respiratory Rate [ Generalized] Blood Pressure 107/52 115/50 110/49 O2 Sat by Pulse 100 100 100 Oximetry 09/02/17 09/02/17 09/02/17 03:45 04:00 04:15 Temperature 100.1 F H Pulse Rate 87 89 85 Pulse Rate [ Anterior Bilateral Throughout] Pulse Rate [ 81 Apical] Respiratory 19 20 20 Rate Respiratory Rate [Anterior Bilateral Throughout] Respiratory Rate [ Generalized] Blood Pressure 117/47 113/40 112/52 O2 Sat by Pulse 100 100 100 Oximetry 09/02/17 09/02/17 09/02/17 04:30 04:45 05:00 Temperature Pulse Rate 84 84 86 Pulse Rate [ Anterior Bilateral Throughout] Pulse Rate [ Apical] Respiratory 20 20 20 Rate Respiratory Rate [Anterior Bilateral Throughout] Respiratory Rate [ Generalized] Blood Pressure 111/45 113/51 125/49 O2 Sat by Pulse 100 100 100 Oximetry 09/02/17 09/02/17 09/02/17 05:15 05:30 05:45 Temperature Pulse Rate 86 94 H 86 Pulse Rate [ Anterior Bilateral Throughout] Pulse Rate [ Apical] Respiratory 20 18 20 Rate Respiratory Rate [Anterior Bilateral Throughout] Respiratory Rate [ Generalized] Blood Pressure 119/53 119/53 121/55 O2 Sat by Pulse 100 100 100 Oximetry 09/02/17 09/02/17 09/02/17 06:00 06:15 06:30 Temperature Pulse Rate 86 88 87 Pulse Rate [ Anterior Bilateral Throughout] Pulse Rate [ Apical] Respiratory 18 21 17 Rate Respiratory Rate [Anterior Bilateral Throughout] Respiratory Rate [ Generalized] Blood Pressure 113/53 120/50 115/62 O2 Sat by Pulse 100 100 100 Oximetry 09/02/17 09/02/17 09/02/17 06:45 07:00 07:16 Temperature Pulse Rate 84 90 92 H Pulse Rate [ Anterior Bilateral Throughout] Pulse Rate [ Apical] Respiratory 20 13 11 L Rate Respiratory Rate [Anterior Bilateral Throughout] Respiratory Rate [ Generalized] Blood Pressure 127/58 108/55 104/37 O2 Sat by Pulse 100 98 99 Oximetry - General Appearance General appearance: well-developed, appears stated age, obese, sedated on ventilator (FiO2 40%), intubated, other (right groin hemodialysis catheter) EENT: ATNC Neck: supple Respiratory: Present: Other (coarse breath sounds) Cardiology: regular, S1S2, no murmurs Gastrointestinal: normoactive bowel sounds, obese, other (PEG tube noted) Integumentary: no rash Neurologic: other (sedated) Musculoskeletal: other (2+ edema of all 4 extremities) - Lab 09/01/17 05:00 09/02/17 06:10 Most recent lab results ABG pH 7.413 pH Units (7.350-7.450) 09/02/17 04:55 ABG pCO2 34.3 mm Hg 09/02/17 04:55 ABG pO2 124.8 mm Hg (80.0-90.0) H 09/02/17 04:55 ABG HCO3 21.4 mmol/L (20.0-26.0) 09/02/17 04:55 ABG O2 Saturation 98.5 % (95.0-99.0) 09/02/17 04:55 Calcium 8.2 mg/dL (8.4-10.2) L 09/02/17 06:10 Phosphorus 3.20 mg/dL (2.5-4.5) D 09/02/17 06:10 Magnesium 1.90 mg/dL (1.7-2.3) 09/02/17 06:10
[2017-09-02] MEDS ORDERED: NACL 0.9% 100 ML IV PRN (08:11)
[2017-09-02] MEDS: DILAUDID IV PRN ×2 (08:34→12:22)
--- NOTE | 2017-09-02 08:53 | Progress Note ---
Assessment and Plan Assessment and plan: 62 YO Female with MO, ESRD-PD (with PD cath in place )(Daily), HTN, OA, Ischemic Cardiomyopathy currently on Milrinone, Chronic Pain who came to ED with lightheaded and syncope, she c/o abdomnal pain x 2 days, was found to have hypotension, septic shock and intra-abdominal abscess. Acute hypoxic respiratory failure on MV < 96 hours continue ventilator Activity rectal bleeding with severe acute blood loss anemia -EGD showed small gastric ulcer -sp multiple transfusions -- GI consult appreciated - Patient had CTA of abdomen and pelvis no active bleeding - transfuse to keep Hg above 8 given septic shock ESRD -continue HD per renal per femoral HD cath -needs perm cath when improved Septic shock. - continue IV pressors Sepsis secondary to peritonitis, Intra abdominal abscess and Bowel obstruction - Patient had completed 14 days of meropenem and diflucan - Patient restarted with IV vancomycin, meropenem and micafungin, ID input appreciated -ID on board - she has had the following procedures 08/31: Ex lap with abdominal wash out and closure 08/17: Ex lap with G tube placement, EGD, abdominal wash out and removal of PD Cath Ulcerative esophagitis/small gastric ulcer on EGD - IV pantoprazole Severe Protein calorie malnutrition - Continue with TPN Sacral and lower extremity wound, POA - continue wound care --DVT prophylaxis; SCDs - D/C Heparin because of GI bleed Plan of care discussed with the patient's family at bedside Disposition - continue ICU care Prognosis: guarded The high probability of a clinically significant, sudden or life threatening deterioration of the [cv, pulmonary and GI] system(s) required my full and direct attention, intervention and personal management. The aggregate critical care time was [33] minutes. This time is in addition to time spent performing reported procedures but includes the following: [] Data Review and interpretation [] Patient assessment and monitoring of vital signs [] Documentation [] Medication orders and management History Interval history: continues to be intubated, sedated, pressor dependent Hospitalist Physical - Physical exam Narrative exam: General.: Obese HEENT: Moist mucous membranes, extraocular muscles intact, no lymphadenopathy Neck: supple Cardiac: S1-S2 heard Lungs: clear to auscultation bilaterally Abdomen: soft, bowel sounds normal, other (obese, soft, dressing not removed) Extremities: no edema clubbing or cyanosis Skin: no rash or lesions Neurologic: Intubated, obeys commands, arousable - Constitutional Vitals: Temp Pulse Resp BP Pulse Ox 99.5 F 93 H 14 112/56 100 09/02/17 08:00 09/02/17 08:00 09/02/17 08:00 09/02/17 08:00 09/02/17 08:00 Results - Labs CBC & Chem 7: 09/01/17 05:00 09/02/17 06:10 Labs: Laboratory Last Values WBC 33.9 K/mm3 (4.5-11.0) H 09/01/17 05:00 RBC 2.85 M/mm3 (3.65-5.03) L 09/01/17 05:00 Hgb 7.8 gm/dl (10.1-14.3) L 09/01/17 05:00 Hct 24.8 % (30.3-42.9) L 09/01/17 05:00 MCV 87 fl (79-97) 09/01/17 05:00 MCH 27 pg (28-32) L 09/01/17 05:00 MCHC 31 % (30-34) 09/01/17 05:00 RDW 23.9 % (13.2-15.2) H 09/01/17 05:00 Plt Count 288 K/mm3 (140-440) 09/01/17 05:00 Lymph % (Auto) Tourist Adviser 08/19/17 07:37 Brule % (Auto) Tourist Adviser 08/19/17 07:37 Eos % (Auto) Tourist Adviser 08/19/17 07:37 Baso % (Auto) Tourist Adviser 08/19/17 07:37 Lymph # Tourist Adviser 08/19/17 07:37 Brule # Tourist Adviser 08/19/17 07:37 Eos # Tourist Adviser 08/19/17 07:37 Baso # Tourist Adviser 08/19/17 07:37 Add Manual Diff Complete 09/01/17 05:00 Total Counted 100 09/01/17 05:00 Seg Neutrophils % Tourist Adviser 08/31/17 18:14 Seg Neuts % (Manual) 68.0 % (40.0-70.0) 09/01/17 05:00 Band Neutrophils % 15.0 % 09/01/17 05:00 Lymphocytes % (Manual) 5.0 % (13.4-35.0) L 09/01/17 05:00 Reactive Lymphs % (Man) 0 % 09/01/17 05:00 Monocytes % (Manual) 1.0 % (0.0-7.3) 09/01/17 05:00 Eosinophils % (Manual) 0 % (0.0-4.3) 09/01/17 05:00 Basophils % (Manual) 0 % (0.0-1.8) 09/01/17 05:00 Metamyelocytes % 6.0 % 09/01/17 05:00 Myelocytes % 4.0 % 09/01/17 05:00 Promyelocytes % 1.0 % 09/01/17 05:00 Blast Cells % 0 % 09/01/17 05:00 Nucleated RBC % Not Reportable 09/01/17 05:00 Seg Neutrophils # Tourist Adviser 08/19/17 07:37 Seg Neutrophils # Man 23.1 K/mm3 (1.8-7.7) H 09/01/17 05:00 Band Neutrophils # 5.1 K/mm3 09/01/17 05:00 Lymphocytes # (Manual) 1.7 K/mm3 (1.2-5.4) 09/01/17 05:00 Abs React Lymphs (Man) 0.0 K/mm3 09/01/17 05:00 Monocytes # (Manual) 0.3 K/mm3 (0.0-0.8) 09/01/17 05:00 Eosinophils # (Manual) 0.0 K/mm3 (0.0-0.4) 09/01/17 05:00 Basophils # (Manual) 0.0 K/mm3 (0.0-0.1) 09/01/17 05:00 Metamyelocytes # 2.0 K/mm3 09/01/17 05:00 Myelocytes # 1.4 K/mm3 09/01/17 05:00 Promyelocytes # 0.3 K/mm3 09/01/17 05:00 Blast Cells # 0.0 K/mm3 09/01/17 05:00 Pathologist Review Not Reportable 08/30/17 05:20 WBC Morphology Not Reportable 09/01/17 05:00 Hypersegmented Neuts Not Reportable 09/01/17 05:00 Hyposegmented Neuts Not Reportable 09/01/17 05:00 Hypogranular Neuts Not Reportable 09/01/17 05:00 Smudge Cells Not Reportable 09/01/17 05:00 Toxic Granulation Not Reportable 09/01/17 05:00 Toxic Vacuolation Not Reportable 09/01/17 05:00 Dohle Bodies Not Reportable 09/01/17 05:00 Pelger-Huet Anomaly Not Reportable 09/01/17 05:00 Ariel Rods Not Reportable 09/01/17 05:00 Platelet Estimate Appears normal 09/01/17 05:00 Clumped Platelets Not Reportable 09/01/17 05:00 Plt Clumps, EDTA Not Reportable 09/01/17 05:00 Large Platelets Not Reportable 09/01/17 05:00 Giant Platelets Few 09/01/17 05:00 Platelet Satelliting Not Reportable 09/01/17 05:00 Plt Morphology Comment Not Reportable 09/01/17 05:00 RBC Morphology Not Reportable 09/01/17 05:00 Dimorphic RBCs Not Reportable 09/01/17 05:00 Polychromasia Few 09/01/17 05:00 Hypochromasia Not Reportable 09/01/17 05:00 Poikilocytosis Not Reportable 09/01/17 05:00 Anisocytosis 2+ 09/01/17 05:00 Microcytosis Not Reportable 09/01/17 05:00 Macrocytosis Not Reportable 09/01/17 05:00 Spherocytes Not Reportable 09/01/17 05:00 Pappenheimer Bodies Not Reportable 09/01/17 05:00 Sickle Cells Not Reportable 09/01/17 05:00 Target Cells Rare 09/01/17 05:00 Tear Drop Cells Not Reportable 09/01/17 05:00 Ovalocytes 1+ 09/01/17 05:00 Stomatocytes Rare 09/01/17 05:00 Helmet Cells Not Reportable 09/01/17 05:00 Vera-[place] Bodies Not Reportable 09/01/17 05:00 Raymond Rings Not Reportable 09/01/17 05:00 [place] Cells Not Reportable 09/01/17 05:00 Bite Cells Not Reportable 09/01/17 05:00 Crenated Cell Not Reportable 09/01/17 05:00 Elliptocytes Rare 09/01/17 05:00 Acanthocytes (Spur) Not Reportable 09/01/17 05:00 Rouleaux Not Reportable 09/01/17 05:00 Hemoglobin C Crystals Not Reportable 09/01/17 05:00 Schistocytes Not Reportable 09/01/17 05:00 Malaria parasites Not Reportable 09/01/17 05:00 Jovanni Bodies Not Reportable 09/01/17 05:00 Hem Pathologist Commnt No 09/01/17 05:00 PT 15.1 Sec. (12.2-14.9) H 08/31/17 18:15 INR 1.13 (0.87-1.13) 08/31/17 18:15 APTT 28.7 Sec. (24.2-36.6) 08/31/17 18:15 POC ABG pH 7.335 (7.35-7.45) L 08/30/17 03:31 ABG pH 7.413 pH Units (7.350-7.450) 09/02/17 04:55 POC ABG pCO2 44.1 (35-45) 08/30/17 03:31 ABG pCO2 34.3 mm Hg 09/02/17 04:55 POC ABG pO2 117 (80-105) H 08/30/17 03:31 ABG pO2 124.8 mm Hg (80.0-90.0) H 09/02/17 04:55 POC ABG HCO3 23.5 08/30/17 03:31 ABG HCO3 21.4 mmol/L (20.0-26.0) 09/02/17 04:55 POC ABG Total CO2 25 08/30/17 03:31 POC ABG O2 Sat 98 08/30/17 03:31 ABG O2 Saturation 98.5 % (95.0-99.0) 09/02/17 04:55 ABG O2 Content 8.1 (0.0-44) 09/02/17 04:55 POC ABG Base Excess -2 08/30/17 03:31 ABG Base Excess -2.9 mmol/L (-2.0-3.0) L 09/02/17 04:55 ABG Hemoglobin 5.8 gm/dl (12.0-16.0) L 09/02/17 04:55 ABG Carboxyhemoglobin 1.7 % (0.0-5.0) 09/02/17 04:55 ABG Methemoglobin 0.4 % (0.0-1.5) 09/02/17 04:55 VBG pH 7.462 (7.320-7.420) H 08/08/17 14:52 Oxyhemoglobin 96.4 % (95.0-99.0) 09/02/17 04:55 FiO2 40 % 09/02/17 04:55 Sodium 141 mmol/L (137-145) 09/02/17 06:10 Potassium 4.7 mmol/L (3.6-5.0) D 09/02/17 06:10 Chloride 102.7 mmol/L (98-107) 09/02/17 06:10 Carbon Dioxide 23 mmol/L (22-30) 09/02/17 06:10 Anion Gap 20 mmol/L 09/02/17 06:10 BUN 68 mg/dL (7-17) H 09/02/17 06:10 Creatinine 2.2 mg/dL (0.7-1.2) H 09/02/17 06:10 Estimated GFR 28 ml/min 09/02/17 06:10 BUN/Creatinine Ratio 31 % 09/02/17 06:10 Glucose 369 mg/dL (65-100) H 09/02/17 06:10 POC Glucose 245 (70-105) H 09/02/17 05:31 Lactic Acid 1.60 mmol/L (0.7-2.0) 08/17/17 11:20 Calcium 8.2 mg/dL (8.4-10.2) L 09/02/17 06:10 Phosphorus 3.20 mg/dL (2.5-4.5) D 09/02/17 06:10 Magnesium 1.90 mg/dL (1.7-2.3) 09/02/17 06:10 Total Bilirubin 0.80 mg/dL (0.1-1.2) 09/01/17 05:00 Direct Bilirubin 0.2 mg/dL (0-0.2) 08/08/17 14:11 Indirect Bilirubin 0.3 mg/dL 08/08/17 14:11 AST 80 units/L (5-40) H 09/01/17 05:00 ALT 82 units/L (7-56) H 09/01/17 05:00 Alkaline Phosphatase 243 units/L (35-129) H 09/01/17 05:00 Ammonia 25.0 umol/L (25-60) 08/08/17 14:52 Troponin T 0.132 ng/mL (0.00-0.029) H* 08/09/17 13:25 C-Reactive Protein 19.10 mg/dL (0.00-1.30) H 08/29/17 12:30 NT-Pro-B Natriuret Pep 6156 pg/mL (0-900) H 08/08/17 14:11 Total Protein 4.2 g/dL (6.3-8.2) L 09/01/17 05:00 Albumin 1.7 g/dL (3.9-5) L 09/01/17 05:00 Albumin/Globulin Ratio 0.7 % 09/01/17 05:00 Triglycerides 62 mg/dL (2-149) 08/08/17 21:23 Cholesterol 91 mg/dL (50-199) 08/08/17 21:23 LDL Cholesterol Direct 53 mg/dL (50-130) 08/08/17 21:23 HDL Cholesterol 26 mg/dL (40-59) L 08/08/17 21:23 Cholesterol/HDL Ratio 3.50 % 08/08/17 21:23 Amylase 45 units/L (27-131) 08/16/17 09:50 Lipase 34 units/L (13-60) 08/16/17 09:50 TSH 6.580 mlU/mL (0.270-4.200) H 08/08/17 14:22 Free T4 1.46 ng/dL (0.76-1.46) 08/08/17 14:22 Total Cortisol 30.1 mcg/dL () 08/13/17 06:14 Urine Color Yellow (Yellow) 08/08/17 20:15 Urine Turbidity Turbid (Clear) 08/08/17 20:15 Urine pH 8.0 (5.0-7.0) H 08/08/17 20:15 Ur Specific [place] 1.015 (1.003-1.030) 08/08/17 20:15 Urine Protein 100 mg/dl mg/dL (Negative) 08/08/17 20:15 Urine Glucose (UA) Neg mg/dL (Negative) 08/08/17 20:15 Urine Ketones Neg mg/dL (Negative) 08/08/17 20:15 Urine Blood Mod (Negative) 08/08/17 20:15 Urine Nitrite Neg (Negative) 08/08/17 20:15 Urine Bilirubin Neg (Negative) 08/08/17 20:15 Urine Urobilinogen < 2.0 mg/dL (<2.0) 08/08/17 20:15 Ur Leukocyte Esterase Lg (Negative) 08/08/17 20:15 Urine WBC (Auto) 24.0 /HPF (0.0-6.0) H 08/08/17 20:15 Urine RBC (Auto) 3.0 /HPF (0.0-6.0) 08/08/17 20:15 U Epithel Cells (Auto) 3.0 /HPF (0-13.0) 08/08/17 20:15 Urine Bacteria (Auto) 4+ /HPF (Negative) 08/08/17 20:15 Urine Mucus 3+ /HPF 08/08/17 20:15 Fluid Type Peritoneal 08/08/17 18:18 Fluid Color Straw 08/08/17 18:18 Fluid Appearance Clear 08/08/17 18:18 Fluid pH 7.74 08/08/17 18:18 Fluid WBC 4 /mm3 08/08/17 18:18 Fluid RBC 1 /mm3 08/08/17 18:18 Fluid Seg Neutrophils 12 % 08/08/17 18:18 Fluid Lymphocytes 0 % 08/08/17 18:18 Fluid Reactive Lymphs 0 % 08/08/17 18:18 Fluid Monocytes 1 % 08/08/17 18:18 Fluid Eosinophils 0 % 08/08/17 18:18 Fluid Basophils 0 % 08/08/17 18:18 Fluid Glucose 315 mg/dL (40-70) H 08/08/17 18:18 Random Vancomycin 19.5 ug/mL (0-40.0) 08/22/17 03:40 Hep Bs Antigen Non-reactive (Negative) 08/22/17 03:40 Hepatitis C Antibody Non-reactive (NonReactive) 08/22/17 03:40 Miscellaneous Test Flexitest 1 H 08/29/17 12:30 Blood Type O POSITIVE 08/31/17 11:56 Antibody Screen TNR 08/31/17 11:56 VAN Antibody Screen Negative 08/31/17 11:56 Crossmatch See Detail 08/31/17 11:56
[2017-09-02] MEDS: PROTONIX IV SCH ×2 (10:48→21:16)
[2017-09-02] MEDS: ZYVOX 600MG/300ML 600 MG/300 ML BAG IV SCH (10:48)
[2017-09-02] MEDS: LEVEMIR SUB-Q SCH (10:49)
--- NOTE | 2017-09-02 11:03 | Progress Note ---
Assessment and Plan 62 y/o female originally admitted with hypotension, now back to ICU secondary to worsening hypotension, concern for sepsis, with acute respiratory failure post-op from ex-lap for abdominal distention and possible ileus, now back from OR after worsening respiratory failure, requiring re-intubation and wash out of abdomen 1. Long discussion at bedside with Daughter. Given recurrence of respiratory failure and continued abdominal issues, patient would benefit from trach. Likely not a candidate for Peg given all of her abdominal issues 2. Await for daughter to discuss with today. 3. Continue PSV trials 4. Abx therapy as previously ordered per ID. 5. Wean levo for MAPS >60 Overall prognosis is guarded CCT 31 Subjective Date of service: 09/02/17 Principal diagnosis: Interval history: No acute events. Sedated on Fent drip. Daughter at bedside. Per nursing, scheduled for HD today. Objective Vital Signs - 12hr 09/01/17 09/01/17 09/01/17 23:00 23:15 23:30 Temperature Pulse Rate 89 91 H 92 H Pulse Rate [ Anterior Bilateral Throughout] Pulse Rate [ Apical] Pulse Rate [ Right] Respiratory 19 21 21 Rate Respiratory Rate [Anterior Bilateral Throughout] Blood Pressure 125/58 121/50 122/60 O2 Sat by Pulse 100 100 100 Oximetry 09/01/17 09/02/17 09/02/17 23:45 00:00 00:08 Temperature 98.9 F Pulse Rate 88 92 H 91 H Pulse Rate [ Anterior Bilateral Throughout] Pulse Rate [ 79 Apical] Pulse Rate [ Right] Respiratory 19 18 20 Rate Respiratory Rate [Anterior Bilateral Throughout] Blood Pressure 123/53 124/56 124/56 O2 Sat by Pulse 100 100 100 Oximetry 09/02/17 09/02/17 09/02/17 00:15 00:30 00:45 Temperature Pulse Rate 92 H 88 91 H Pulse Rate [ Anterior Bilateral Throughout] Pulse Rate [ Apical] Pulse Rate [ Right] Respiratory 20 21 21 Rate Respiratory Rate [Anterior Bilateral Throughout] Blood Pressure 121/45 130/54 124/59 O2 Sat by Pulse 100 100 100 Oximetry 09/02/17 09/02/17 09/02/17 01:00 01:15 01:30 Temperature Pulse Rate 89 92 H 90 Pulse Rate [ Anterior Bilateral Throughout] Pulse Rate [ Apical] Pulse Rate [ Right] Respiratory 20 20 20 Rate Respiratory Rate [Anterior Bilateral Throughout] Blood Pressure 137/50 130/56 123/54 O2 Sat by Pulse 100 100 100 Oximetry 09/02/17 09/02/17 09/02/17 01:45 02:00 02:10 Temperature Pulse Rate 89 90 Pulse Rate [ 90 94 H Anterior Bilateral Throughout] Pulse Rate [ Apical] Pulse Rate [ Right] Respiratory 21 20 Rate Respiratory 20 20 Rate [Anterior Bilateral Throughout] Blood Pressure 127/58 127/58 O2 Sat by Pulse 100 100 Oximetry 09/02/17 09/02/17 09/02/17 02:15 02:30 02:45 Temperature Pulse Rate 88 92 H 86 Pulse Rate [ Anterior Bilateral Throughout] Pulse Rate [ Apical] Pulse Rate [ Right] Respiratory 20 15 21 Rate Respiratory Rate [Anterior Bilateral Throughout] Blood Pressure 125/52 125/52 106/49 O2 Sat by Pulse 100 100 100 Oximetry 09/02/17 09/02/17 09/02/17 03:00 03:15 03:30 Temperature Pulse Rate 89 85 86 Pulse Rate [ Anterior Bilateral Throughout] Pulse Rate [ Apical] Pulse Rate [ Right] Respiratory 15 19 20 Rate Respiratory Rate [Anterior Bilateral Throughout] Blood Pressure 107/52 115/50 110/49 O2 Sat by Pulse 100 100 100 Oximetry 09/02/17 09/02/17 09/02/17 03:45 04:00 04:15 Temperature 100.1 F H Pulse Rate 87 89 85 Pulse Rate [ Anterior Bilateral Throughout] Pulse Rate [ 81 Apical] Pulse Rate [ Right] Respiratory 19 20 20 Rate Respiratory Rate [Anterior Bilateral Throughout] Blood Pressure 117/47 113/40 112/52 O2 Sat by Pulse 100 100 100 Oximetry 09/02/17 09/02/17 09/02/17 04:30 04:45 05:00 Temperature Pulse Rate 84 84 86 Pulse Rate [ Anterior Bilateral Throughout] Pulse Rate [ Apical] Pulse Rate [ Right] Respiratory 20 20 20 Rate Respiratory Rate [Anterior Bilateral Throughout] Blood Pressure 111/45 113/51 125/49 O2 Sat by Pulse 100 100 100 Oximetry 09/02/17 09/02/17 09/02/17 05:15 05:30 05:45 Temperature Pulse Rate 86 94 H 86 Pulse Rate [ Anterior Bilateral Throughout] Pulse Rate [ Apical] Pulse Rate [ Right] Respiratory 20 18 20 Rate Respiratory Rate [Anterior Bilateral Throughout] Blood Pressure 119/53 119/53 121/55 O2 Sat by Pulse 100 100 100 Oximetry 1009/02/17 09/02/17 06:00 06:15 06:30 Temperature Pulse Rate 86 88 87 Pulse Rate [ Anterior Bilateral Throughout] Pulse Rate [ Apical] Pulse Rate [ Right] Respiratory 18 21 17 Rate Respiratory Rate [Anterior Bilateral Throughout] Blood Pressure 113/53 120/50 115/62 O2 Sat by Pulse 100 100 100 Oximetry 09/02/17 09/02/17 09/02/17 06:45 07:00 07:16 Temperature Pulse Rate 84 90 92 H Pulse Rate [ Anterior Bilateral Throughout] Pulse Rate [ Apical] Pulse Rate [ Right] Respiratory 20 13 11 L Rate Respiratory Rate [Anterior Bilateral Throughout] Blood Pressure 127/58 108/55 104/37 O2 Sat by Pulse 100 98 99 Oximetry 09/02/17 09/02/17 09/02/17 07:30 07:45 07:59 Temperature Pulse Rate 90 93 H 92 H Pulse Rate [ Anterior Bilateral Throughout] Pulse Rate [ Apical] Pulse Rate [ Right] Respiratory 14 11 L 19 Rate Respiratory Rate [Anterior Bilateral Throughout] Blood Pressure 103/44 104/42 O2 Sat by Pulse 100 100 99 Oximetry 09/02/17 09/02/17 09/02/17 08:00 08:15 08:30 Temperature 99.5 F Pulse Rate 95 H 92 H 90 Pulse Rate [ Anterior Bilateral Throughout] Pulse Rate [ Apical] Pulse Rate [ 93 H Right] Respiratory 14 13 15 Rate Respiratory Rate [Anterior Bilateral Throughout] Blood Pressure 112/56 111/48 112/55 O2 Sat by Pulse 100 100 100 Oximetry 09/02/17 09/02/17 09/02/17 08:45 09:00 09:15 Temperature Pulse Rate 90 91 H 91 H Pulse Rate [ Anterior Bilateral Throughout] Pulse Rate [ Apical] Pulse Rate [ Right] Respiratory 12 9 L 18 Rate Respiratory Rate [Anterior Bilateral Throughout] Blood Pressure 107/54 116/57 125/58 O2 Sat by Pulse 100 100 100 Oximetry 09/02/17 09/02/17 09/02/17 09:30 09:45 09:50 Temperature Pulse Rate 93 H 89 Pulse Rate [ 96 H Anterior Bilateral Throughout] Pulse Rate [ Apical] Pulse Rate [ Right] Respiratory 13 14 Rate Respiratory 18 Rate [Anterior Bilateral Throughout] Blood Pressure 115/61 125/60 O2 Sat by Pulse 100 100 Oximetry 09/02/17 10:00 Temperature Pulse Rate 89 Pulse Rate [ Anterior Bilateral Throughout] Pulse Rate [ Apical] Pulse Rate [ Right] Respiratory 10 L Rate Respiratory Rate [Anterior Bilateral Throughout] Blood Pressure 119/56 O2 Sat by Pulse 100 Oximetry Constitutional: comatose, other (critically ill on vent, obese) Eyes: non-icteric ENT: oropharynx moist, other (NGT) Neck: supple, no lymphadenopathy Effort: mildly labored Ascultation: Bilateral: wheezes (faint expiratory wheezes), rhonchi (occ), other (coarse BS bilaterally) Cardiovascular: regular rate and rhythm Gastrointestinal: absent bowel sounds, non-tender, other (abdominal incision with new dressing noted, obese) Integumentary: normal Extremities: no cyanosis, pink and warm, edema (3+ bilateral LE edema) Neurologic: non-focal exam, pupils equal and round, other (somnolent) Psychiatric: mood appropriate, affect normal CBC and BMP: 09/01/17 05:00 09/02/17 06:10 ABG, PT/INR, D-dimer: ABG POC ABG pH 7.335 (7.35-7.45) L 08/30/17 03:31 ABG pH 7.413 pH Units (7.350-7.450) 09/02/17 04:55 POC ABG pCO2 44.1 (35-45) 08/30/17 03:31 ABG pCO2 34.3 mm Hg 09/02/17 04:55 POC ABG pO2 117 (80-105) H 08/30/17 03:31 ABG pO2 124.8 mm Hg (80.0-90.0) H 09/02/17 04:55 POC ABG HCO3 23.5 08/30/17 03:31 POC ABG Total CO2 25 08/30/17 03:31 POC ABG O2 Sat 98 08/30/17 03:31 ABG O2 Saturation 98.5 % (95.0-99.0) 09/02/17 04:55 PT/INR, D-dimer PT 15.1 Sec. (12.2-14.9) H 08/31/17 18:15 INR 1.13 (0.87-1.13) 08/31/17 18:15 Abnormal lab findings: Abnormal Labs 08/08/17 08/08/17 08/09/17 21:23 21:31 11:19 WBC 15.7 H RBC 2.93 L Hgb 8.7 L Hct 26.8 L MCV MCH RDW 19.2 H Plt Count Lymph % (Auto) [place] % (Auto) [place] # Seg Neutrophils % Seg Neuts % (Manual) Lymphocytes % (Manual) Monocytes % (Manual) Nucleated RBC % Seg Neutrophils # Seg Neutrophils # Man Lymphocytes # (Manual) Monocytes # (Manual) Eosinophils # (Manual) Basophils # (Manual) PT INR POC ABG pH 7.490 H ABG pH POC ABG pCO2 POC ABG pO2 122 H ABG pO2 ABG Base Excess ABG Hemoglobin Sodium Potassium Chloride Carbon Dioxide BUN Creatinine Glucose POC Glucose Calcium Phosphorus Magnesium AST ALT Alkaline Phosphatase Troponin T 0.133 H* C-Reactive Protein Total Protein Albumin HDL Cholesterol 26 L Miscellaneous Test Crossmatch 08/09/17 08/10/17 08/10/17 13:25 04:45 04:45 WBC 15.5 H RBC 2.97 L Hgb 8.9 L Hct 27.0 L MCV MCH RDW 19.2 H Plt Count Lymph % (Auto) [place] % (Auto) [place] # Seg Neutrophils % Seg Neuts % (Manual) 73.0 H Lymphocytes % (Manual) 7.0 L Monocytes % (Manual) 14.0 H Nucleated RBC % Seg Neutrophils # Seg Neutrophils # Man 11.3 H Lymphocytes # (Manual) 1.1 L Monocytes # (Manual) 2.2 H Eosinophils # (Manual) Basophils # (Manual) 0.2 H PT INR POC ABG pH ABG pH POC ABG pCO2 POC ABG pO2 ABG pO2 ABG Base Excess ABG Hemoglobin Sodium Potassium 3.3 L Chloride 97.3 L Carbon Dioxide 21 L BUN 23 H Creatinine 6.5 H Glucose POC Glucose Calcium 7.3 L Phosphorus Magnesium AST ALT Alkaline Phosphatase 138 H Troponin T 0.132 H* C-Reactive Protein Total Protein 4.8 L Albumin 1.4 L HDL Cholesterol Miscellaneous Test Crossmatch 08/11/17 08/11/17 08/12/17 04:00 04:00 05:50 WBC 19.3 H RBC 3.10 L Hgb 9.5 L Hct 28.2 L MCV MCH RDW 19.2 H Plt Count 463 H Lymph % (Auto) 7.5 L [place] % (Auto) 14.6 H [place] # 2.8 H Seg Neutrophils % 77.0 H Seg Neuts % (Manual) Lymphocytes % (Manual) Monocytes % (Manual) Nucleated RBC % Seg Neutrophils # 14.8 H Seg Neutrophils # Man Lymphocytes # (Manual) Monocytes # (Manual) Eosinophils # (Manual) Basophils # (Manual) PT INR POC ABG pH ABG pH POC ABG pCO2 POC ABG pO2 ABG pO2 ABG Base Excess ABG Hemoglobin Sodium 136 L 136 L Potassium 3.3 L Chloride 96.3 L 96.6 L Carbon Dioxide BUN 26 H 26 H Creatinine 6.4 H 6.2 H Glucose 135 H 133 H POC Glucose Calcium 8.2 L Phosphorus Magnesium 1.30 L AST ALT Alkaline Phosphatase 139 H Troponin T C-Reactive Protein Total Protein 5.5 L Albumin 1.7 L HDL Cholesterol Miscellaneous Test Crossmatch 08/12/17 08/12/17 08/12/17 05:50 05:50 05:50 WBC 20.1 H RBC 3.06 L Hgb 9.3 L Hct 27.9 L MCV MCH RDW 18.4 H Plt Count 471 H Lymph % (Auto) [place] % (Auto) [place] # Seg Neutrophils % Seg Neuts % (Manual) 85.0 H Lymphocytes % (Manual) 8.0 L Monocytes % (Manual) Nucleated RBC % Seg Neutrophils # Seg Neutrophils # Man 17.1 H Lymphocytes # (Manual) Monocytes # (Manual) 1.0 H Eosinophils # (Manual) Basophils # (Manual) PT 15.2 H INR 1.14 H POC ABG pH ABG pH POC ABG pCO2 POC ABG pO2 ABG pO2 ABG Base Excess ABG Hemoglobin Sodium Potassium Chloride Carbon Dioxide BUN Creatinine Glucose POC Glucose Calcium Phosphorus Magnesium AST ALT Alkaline Phosphatase Troponin T C-Reactive Protein 28.90 H Total Protein Albumin HDL Cholesterol Miscellaneous Test Crossmatch 08/12/17 08/13/17 08/13/17 16:23 06:14 06:14 WBC 21.8 H RBC 3.11 L Hgb 9.4 L Hct 28.2 L MCV MCH RDW 18.2 H Plt Count 492 H Lymph % (Auto) [place] % (Auto) [place] # Seg Neutrophils % Seg Neuts % (Manual) 73.0 H Lymphocytes % (Manual) 2.0 L Monocytes % (Manual) 15 H Nucleated RBC % Seg Neutrophils # Seg Neutrophils # Man 15.9 H Lymphocytes # (Manual) 0.4 L Monocytes # (Manual) 2.4 H Eosinophils # (Manual) Basophils # (Manual) PT INR POC ABG pH ABG pH POC ABG pCO2 POC ABG pO2 ABG pO2 ABG Base Excess ABG Hemoglobin Sodium Potassium Chloride 96.2 L Carbon Dioxide BUN 28 H Creatinine 5.6 H Glucose 114 H POC Glucose Calcium Phosphorus Magnesium AST ALT Alkaline Phosphatase Troponin T C-Reactive Protein 26.10 H Total Protein Albumin HDL Cholesterol Miscellaneous Test Crossmatch 08/13/17 08/14/17 08/14/17 16:39 04:00 04:00 WBC 22.1 H RBC 3.25 L Hgb 9.9 L Hct 29.5 L MCV MCH RDW 17.9 H Plt Count 525 H Lymph % (Auto) [place] % (Auto) [place] # Seg Neutrophils % Seg Neuts % (Manual) 74.0 H Lymphocytes % (Manual) 8.0 L Monocytes % (Manual) 12.0 H Nucleated RBC % Seg Neutrophils # Seg Neutrophils # Man 16.4 H Lymphocytes # (Manual) Monocytes # (Manual) 2.7 H Eosinophils # (Manual) Basophils # (Manual) PT INR POC ABG pH ABG pH POC ABG pCO2 POC ABG pO2 ABG pO2 ABG Base Excess ABG Hemoglobin Sodium 134 L Potassium 3.3 L Chloride 93.3 L Carbon Dioxide BUN 27 H Creatinine 6.0 H Glucose 152 H POC Glucose 151 H Calcium Phosphorus Magnesium AST ALT Alkaline Phosphatase Troponin T C-Reactive Protein Total Protein Albumin HDL Cholesterol Miscellaneous Test Crossmatch 08/15/17 08/16/17 08/16/17 09:10 09:50 09:50 WBC 31.1 H RBC 3.21 L Hgb 9.6 L Hct 29.3 L MCV MCH RDW 18.1 H Plt Count 642 H Lymph % (Auto) [place] % (Auto) [place] # Seg Neutrophils % Seg Neuts % (Manual) 74.0 H Lymphocytes % (Manual) 4.0 L Monocytes % (Manual) 9.0 H Nucleated RBC % Seg Neutrophils # Seg Neutrophils # Man 23.0 H Lymphocytes # (Manual) Monocytes # (Manual) 2.8 H Eosinophils # (Manual) Basophils # (Manual) PT INR POC ABG pH ABG pH POC ABG pCO2 POC ABG pO2 ABG pO2 ABG Base Excess ABG Hemoglobin Sodium 136 L 136 L Potassium 3.5 L Chloride 97.6 L 94.9 L Carbon Dioxide BUN 27 H 28 H Creatinine 5.6 H 5.5 H Glucose 117 H 103 H POC Glucose Calcium Phosphorus Magnesium AST ALT Alkaline Phosphatase 137 H Troponin T C-Reactive Protein Total Protein 5.4 L Albumin 1.5 L HDL Cholesterol Miscellaneous Test Crossmatch 08/16/17 08/17/17 08/17/17 09:50 05:00 06:26 WBC RBC Hgb Hct MCV MCH RDW Plt Count Lymph % (Auto) [place] % (Auto) [place] # Seg Neutrophils % Seg Neuts % (Manual) Lymphocytes % (Manual) Monocytes % (Manual) Nucleated RBC % Seg Neutrophils # Seg Neutrophils # Man Lymphocytes # (Manual) Monocytes # (Manual) Eosinophils # (Manual) Basophils # (Manual) PT INR POC ABG pH ABG pH POC ABG pCO2 POC ABG pO2 ABG pO2 ABG Base Excess ABG Hemoglobin Sodium 134 L Potassium 3.0 L Chloride 97.8 L Carbon Dioxide BUN 30 H Creatinine 5.3 H Glucose 147 H POC Glucose 165 H Calcium 7.5 L Phosphorus Magnesium AST ALT Alkaline Phosphatase Troponin T C-Reactive Protein 32.30 H Total Protein Albumin HDL Cholesterol Miscellaneous Test Crossmatch 08/17/17 08/17/17 08/17/17 10:56 11:20 11:20 WBC 39.1 H RBC 3.10 L Hgb 9.2 L Hct 28.6 L MCV MCH RDW 18.3 H Plt Count 580 H Lymph % (Auto) [place] % (Auto) [place] # Seg Neutrophils % Seg Neuts % (Manual) 89.5 H Lymphocytes % (Manual) 3.5 L Monocytes % (Manual) Nucleated RBC % Seg Neutrophils # Seg Neutrophils # Man 35.0 H Lymphocytes # (Manual) Monocytes # (Manual) 2.5 H Eosinophils # (Manual) Basophils # (Manual) 0.2 H PT INR POC ABG pH 7.464 H ABG pH POC ABG pCO2 34.1 L POC ABG pO2 75 L ABG pO2 ABG Base Excess ABG Hemoglobin Sodium Potassium Chloride Carbon Dioxide BUN Creatinine Glucose POC Glucose Calcium Phosphorus Magnesium AST ALT Alkaline Phosphatase Troponin T C-Reactive Protein Total Protein Albumin HDL Cholesterol Miscellaneous Test Flexitest 1 H Crossmatch 08/17/17 08/17/17 08/17/17 11:20 16:57 20:20 WBC 34.4 H RBC 2.81 L Hgb 8.4 L Hct 26.0 L MCV MCH RDW 17.8 H Plt Count 455 H Lymph % (Auto) [place] % (Auto) [place] # Seg Neutrophils % Seg Neuts % (Manual) Lymphocytes % (Manual) 3.5 L Monocytes % (Manual) Nucleated RBC % 5.0 H Seg Neutrophils # Seg Neutrophils # Man 16.5 H Lymphocytes # (Manual) Monocytes # (Manual) 1.0 H Eosinophils # (Manual) Basophils # (Manual) PT 16.0 H INR 1.29 H POC ABG pH ABG pH POC ABG pCO2 POC ABG pO2 ABG pO2 ABG Base Excess ABG Hemoglobin Sodium 135 L Potassium 2.9 L* Chloride Carbon Dioxide 20 L BUN 32 H Creatinine 5.4 H Glucose 129 H POC Glucose Calcium 7.5 L Phosphorus Magnesium 1.50 L AST 85 H ALT Alkaline Phosphatase Troponin T C-Reactive Protein Total Protein 4.0 L D Albumin 1.6 L HDL Cholesterol Miscellaneous Test Crossmatch 08/17/17 08/17/17 08/18/17 20:54 23:47 04:26 WBC RBC Hgb Hct MCV MCH RDW Plt Count Lymph % (Auto) [place] % (Auto) [place] # Seg Neutrophils % Seg Neuts % (Manual) Lymphocytes % (Manual) Monocytes % (Manual) Nucleated RBC % Seg Neutrophils # Seg Neutrophils # Man Lymphocytes # (Manual) Monocytes # (Manual) Eosinophils # (Manual) Basophils # (Manual) PT INR POC ABG pH 7.557 H ABG pH POC ABG pCO2 23.1 L 29.0 L POC ABG pO2 187 H 148 H ABG pO2 ABG Base Excess ABG Hemoglobin Sodium Potassium Chloride Carbon Dioxide BUN Creatinine Glucose POC Glucose 188 H Calcium Phosphorus Magnesium AST ALT Alkaline Phosphatase Troponin T C-Reactive Protein Total Protein Albumin HDL Cholesterol Miscellaneous Test Crossmatch 08/18/17 08/18/17 08/18/17 05:51 11:44 17:07 WBC RBC Hgb Hct MCV MCH RDW Plt Count Lymph % (Auto) [place] % (Auto) [place] # Seg Neutrophils % Seg Neuts % (Manual) Lymphocytes % (Manual) Monocytes % (Manual) Nucleated RBC % Seg Neutrophils # Seg Neutrophils # Man Lymphocytes # (Manual) Monocytes # (Manual) Eosinophils # (Manual) Basophils # (Manual) PT INR POC ABG pH ABG pH POC ABG pCO2 POC ABG pO2 ABG pO2 ABG Base Excess ABG Hemoglobin Sodium Potassium Chloride Carbon Dioxide BUN Creatinine Glucose POC Glucose 202 H 195 H 182 H Calcium Phosphorus Magnesium AST ALT Alkaline Phosphatase Troponin T C-Reactive Protein Total Protein Albumin HDL Cholesterol Miscellaneous Test Crossmatch 08/18/17 08/18/17 08/18/17 23:45 Unknown Unknown WBC 39.0 H RBC 2.84 L Hgb 8.4 L Hct 26.5 L MCV MCH RDW 18.0 H Plt Count 476 H Lymph % (Auto) [place] % (Auto) [place] # Seg Neutrophils % Seg Neuts % (Manual) Lymphocytes % (Manual) 7.0 L Monocytes % (Manual) 10.0 H Nucleated RBC % 3.0 H Seg Neutrophils # Seg Neutrophils # Man 15.6 H Lymphocytes # (Manual) Monocytes # (Manual) 3.9 H Eosinophils # (Manual) Basophils # (Manual) PT INR POC ABG pH ABG pH POC ABG pCO2 POC ABG pO2 ABG pO2 ABG Base Excess ABG Hemoglobin Sodium Potassium Chloride Carbon Dioxide 19 L BUN 34 H Creatinine 5.6 H Glucose 201 H POC Glucose 163 H Calcium 7.8 L Phosphorus 1.90 L D Magnesium 1.60 L AST ALT Alkaline Phosphatase Troponin T C-Reactive Protein Total Protein Albumin HDL Cholesterol Miscellaneous Test Crossmatch 08/19/17 08/19/17 08/19/17 04:18 05:00 05:00 WBC 40.0 H RBC 2.46 L Hgb 7.3 L Hct 22.6 L MCV MCH RDW 18.1 H Plt Count Lymph % (Auto) [place] % (Auto) [place] # Seg Neutrophils % Seg Neuts % (Manual) Lymphocytes % (Manual) 8.0 L Monocytes % (Manual) Nucleated RBC % 2.0 H Seg Neutrophils # Seg Neutrophils # Man 16.4 H Lymphocytes # (Manual) Monocytes # (Manual) 1.2 H Eosinophils # (Manual) 1.2 H Basophils # (Manual) PT INR POC ABG pH 7.463 H ABG pH POC ABG pCO2 29.7 L POC ABG pO2 134 H ABG pO2 ABG Base Excess ABG Hemoglobin Sodium Potassium 5.1 H D Chloride Carbon Dioxide 20 L BUN 40 H Creatinine 5.3 H Glucose 128 H POC Glucose Calcium 7.8 L Phosphorus 1.90 L Magnesium AST ALT Alkaline Phosphatase Troponin T C-Reactive Protein Total Protein Albumin HDL Cholesterol Miscellaneous Test Crossmatch 0908/19/17 08/19/17 05:19 07:37 09:52 WBC 45.0 H* RBC 2.50 L Hgb 7.5 L Hct 24.5 L MCV 98 H MCH RDW 18.4 H Plt Count Lymph % (Auto) [place] % (Auto) [place] # Seg Neutrophils % Seg Neuts % (Manual) 81.5 H Lymphocytes % (Manual) 4.0 L Monocytes % (Manual) Nucleated RBC % 1.0 H Seg Neutrophils # Seg Neutrophils # Man 36.7 H Lymphocytes # (Manual) Monocytes # (Manual) Eosinophils # (Manual) Basophils # (Manual) PT INR POC ABG pH ABG pH POC ABG pCO2 POC ABG pO2 ABG pO2 ABG Base Excess ABG Hemoglobin Sodium Potassium Chloride Carbon Dioxide BUN Creatinine Glucose POC Glucose 142 H Calcium Phosphorus Magnesium AST ALT Alkaline Phosphatase Troponin T C-Reactive Protein 34.20 H Total Protein Albumin HDL Cholesterol Miscellaneous Test Crossmatch 08/19/17 08/19/17 08/20/17 11:16 18:12 00:35 WBC RBC Hgb Hct MCV MCH RDW Plt Count Lymph % (Auto) [place] % (Auto) [place] # Seg Neutrophils % Seg Neuts % (Manual) Lymphocytes % (Manual) Monocytes % (Manual) Nucleated RBC % Seg Neutrophils # Seg Neutrophils # Man Lymphocytes # (Manual) Monocytes # (Manual) Eosinophils # (Manual) Basophils # (Manual) PT INR POC ABG pH ABG pH POC ABG pCO2 POC ABG pO2 ABG pO2 ABG Base Excess ABG Hemoglobin Sodium Potassium Chloride Carbon Dioxide BUN Creatinine Glucose POC Glucose 143 H 137 H 164 H Calcium Phosphorus Magnesium AST ALT Alkaline Phosphatase Troponin T C-Reactive Protein Total Protein Albumin HDL Cholesterol Miscellaneous Test Crossmatch 08/20/17 08/20/17 08/20/17 03:20 03:20 04:00 WBC 48.0 H* RBC 2.55 L Hgb 7.6 L Hct 23.4 L MCV MCH RDW 18.4 H Plt Count Lymph % (Auto) [place] % (Auto) [place] # Seg Neutrophils % Seg Neuts % (Manual) 90.0 H Lymphocytes % (Manual) 3.0 L Monocytes % (Manual) Nucleated RBC % Seg Neutrophils # Seg Neutrophils # Man 43.2 H Lymphocytes # (Manual) Monocytes # (Manual) 1.4 H Eosinophils # (Manual) 0.5 H Basophils # (Manual) PT INR POC ABG pH 7.499 H ABG pH POC ABG pCO2 29.1 L POC ABG pO2 ABG pO2 ABG Base Excess ABG Hemoglobin Sodium 135 L Potassium Chloride Carbon Dioxide BUN 28 H Creatinine 4.0 H Glucose 140 H POC Glucose Calcium 8.0 L Phosphorus 1.70 L Magnesium 1.60 L AST ALT Alkaline Phosphatase Troponin T C-Reactive Protein Total Protein Albumin HDL Cholesterol Miscellaneous Test Crossmatch 08/20/17 08/20/17 08/20/17 05:02 12:05 13:12 WBC RBC Hgb Hct MCV MCH RDW Plt Count Lymph % (Auto) [place] % (Auto) [place] # Seg Neutrophils % Seg Neuts % (Manual) Lymphocytes % (Manual) Monocytes % (Manual) Nucleated RBC % Seg Neutrophils # Seg Neutrophils # Man Lymphocytes # (Manual) Monocytes # (Manual) Eosinophils # (Manual) Basophils # (Manual) PT INR POC ABG pH 7.537 H ABG pH POC ABG pCO2 27.9 L POC ABG pO2 79 L ABG pO2 ABG Base Excess ABG Hemoglobin Sodium Potassium Chloride Carbon Dioxide BUN Creatinine Glucose POC Glucose 158 H 203 H Calcium Phosphorus Magnesium AST ALT Alkaline Phosphatase Troponin T C-Reactive Protein Total Protein Albumin HDL Cholesterol Miscellaneous Test Crossmatch 08/20/17 08/21/17 08/21/17 17:13 00:47 03:14 WBC RBC Hgb Hct MCV MCH RDW Plt Count Lymph % (Auto) [place] % (Auto) [place] # Seg Neutrophils % Seg Neuts % (Manual) Lymphocytes % (Manual) Monocytes % (Manual) Nucleated RBC % Seg Neutrophils # Seg Neutrophils # Man Lymphocytes # (Manual) Monocytes # (Manual) Eosinophils # (Manual) Basophils # (Manual) PT INR POC ABG pH 7.481 H ABG pH POC ABG pCO2 29.6 L POC ABG pO2 ABG pO2 ABG Base Excess ABG Hemoglobin Sodium Potassium Chloride Carbon Dioxide BUN Creatinine Glucose POC Glucose 188 H 109 H Calcium Phosphorus Magnesium AST ALT Alkaline Phosphatase Troponin T C-Reactive Protein Total Protein Albumin HDL Cholesterol Miscellaneous Test Crossmatch 08/21/17 08/21/17 08/21/17 05:05 06:50 06:50 WBC 44.7 H* RBC 2.41 L Hgb 7.1 L Hct 22.1 L MCV MCH RDW 18.3 H Plt Count Lymph % (Auto) [place] % (Auto) [place] # Seg Neutrophils % Seg Neuts % (Manual) 89.0 H Lymphocytes % (Manual) 0 L Monocytes % (Manual) Nucleated RBC % 1.0 H Seg Neutrophils # Seg Neutrophils # Man 39.8 H Lymphocytes # (Manual) 0.0 L Monocytes # (Manual) 1.3 H Eosinophils # (Manual) Basophils # (Manual) PT INR POC ABG pH ABG pH POC ABG pCO2 POC ABG pO2 ABG pO2 ABG Base Excess ABG Hemoglobin Sodium 135 L Potassium Chloride Carbon Dioxide BUN 39 H Creatinine 4.4 H Glucose 147 H POC Glucose 166 H Calcium 8.1 L Phosphorus Magnesium AST ALT < 5 L Alkaline Phosphatase 164 H Troponin T C-Reactive Protein Total Protein 4.7 L Albumin 1.4 L HDL Cholesterol Miscellaneous Test Crossmatch 08/21/17 08/21/17 08/21/17 08:00 12:21 17:02 WBC RBC Hgb Hct MCV MCH RDW Plt Count Lymph % (Auto) [place] % (Auto) [place] # Seg Neutrophils % Seg Neuts % (Manual) Lymphocytes % (Manual) Monocytes % (Manual) Nucleated RBC % Seg Neutrophils # Seg Neutrophils # Man Lymphocytes # (Manual) Monocytes # (Manual) Eosinophils # (Manual) Basophils # (Manual) PT INR POC ABG pH ABG pH POC ABG pCO2 POC ABG pO2 ABG pO2 ABG Base Excess ABG Hemoglobin Sodium Potassium Chloride Carbon Dioxide BUN Creatinine Glucose POC Glucose 147 H 135 H Calcium Phosphorus Magnesium AST ALT Alkaline Phosphatase Troponin T C-Reactive Protein Total Protein Albumin HDL Cholesterol Miscellaneous Test Crossmatch See Detail 08/21/17 08/22/17 08/22/17 23:38 03:40 03:40 WBC 42.5 H* RBC 2.88 L Hgb 8.5 L Hct 26.3 L MCV MCH RDW 17.9 H Plt Count Lymph % (Auto) [place] % (Auto) [place] # Seg Neutrophils % Seg Neuts % (Manual) Lymphocytes % (Manual) 5.0 L Monocytes % (Manual) Nucleated RBC % Seg Neutrophils # Seg Neutrophils # Man 19.6 H Lymphocytes # (Manual) Monocytes # (Manual) 2.6 H Eosinophils # (Manual) Basophils # (Manual) PT INR POC ABG pH ABG pH POC ABG pCO2 POC ABG pO2 ABG pO2 ABG Base Excess ABG Hemoglobin Sodium Potassium 3.3 L D Chloride Carbon Dioxide BUN 27 H Creatinine 2.9 H Glucose 144 H POC Glucose 251 H Calcium 8.0 L Phosphorus 2.40 L Magnesium AST ALT Alkaline Phosphatase Troponin T C-Reactive Protein Total Protein Albumin HDL Cholesterol Miscellaneous Test Crossmatch 08/22/17 08/22/17 08/22/17 06:37 08:50 11:25 WBC RBC Hgb Hct MCV MCH RDW Plt Count Lymph % (Auto) [place] % (Auto) [place] # Seg Neutrophils % Seg Neuts % (Manual) Lymphocytes % (Manual) Monocytes % (Manual) Nucleated RBC % Seg Neutrophils # Seg Neutrophils # Man Lymphocytes # (Manual) Monocytes # (Manual) Eosinophils # (Manual) Basophils # (Manual) PT INR POC ABG pH ABG pH POC ABG pCO2 POC ABG pO2 ABG pO2 ABG Base Excess ABG Hemoglobin Sodium Potassium Chloride Carbon Dioxide BUN Creatinine Glucose POC Glucose 152 H 175 H Calcium Phosphorus Magnesium AST ALT Alkaline Phosphatase Troponin T C-Reactive Protein Total Protein Albumin HDL Cholesterol Miscellaneous Test Flexitest 1 H Crossmatch 08/22/17 08/22/17 08/22/17 16:25 17:56 23:03 WBC RBC Hgb Hct MCV MCH RDW Plt Count Lymph % (Auto) [place] % (Auto) [place] # Seg Neutrophils % Seg Neuts % (Manual) Lymphocytes % (Manual) Monocytes % (Manual) Nucleated RBC % Seg Neutrophils # Seg Neutrophils # Man Lymphocytes # (Manual) Monocytes # (Manual) Eosinophils # (Manual) Basophils # (Manual) PT INR POC ABG pH ABG pH POC ABG pCO2 POC ABG pO2 ABG pO2 ABG Base Excess ABG Hemoglobin Sodium Potassium Chloride Carbon Dioxide BUN Creatinine Glucose POC Glucose 232 H 192 H Calcium Phosphorus Magnesium AST ALT Alkaline Phosphatase Troponin T C-Reactive Protein 30.70 H Total Protein Albumin HDL Cholesterol Miscellaneous Test Crossmatch 08/23/17 08/23/17 08/23/17 05:36 08:50 12:14 WBC RBC Hgb Hct MCV MCH RDW Plt Count Lymph % (Auto) [place] % (Auto) [place] # Seg Neutrophils % Seg Neuts % (Manual) Lymphocytes % (Manual) Monocytes % (Manual) Nucleated RBC % Seg Neutrophils # Seg Neutrophils # Man Lymphocytes # (Manual) Monocytes # (Manual) Eosinophils # (Manual) Basophils # (Manual) PT INR POC ABG pH ABG pH POC ABG pCO2 POC ABG pO2 ABG pO2 ABG Base Excess ABG Hemoglobin Sodium Potassium Chloride 107.1 H Carbon Dioxide BUN 49 H Creatinine 3.3 H Glucose 172 H POC Glucose 206 H 238 H Calcium Phosphorus Magnesium 2.40 H AST ALT Alkaline Phosphatase Troponin T C-Reactive Protein Total Protein Albumin HDL Cholesterol Miscellaneous Test Crossmatch 08/23/17 08/23/17 08/24/17 17:21 23:13 04:00 WBC 34.2 H RBC 2.86 L Hgb 8.4 L Hct 25.9 L MCV MCH RDW 17.9 H Plt Count Lymph % (Auto) [place] % (Auto) [place] # Seg Neutrophils % Seg Neuts % (Manual) 85.0 H Lymphocytes % (Manual) 0.5 L Monocytes % (Manual) Nucleated RBC % 1.0 H Seg Neutrophils # Seg Neutrophils # Man 29.1 H Lymphocytes # (Manual) 0.2 L Monocytes # (Manual) 2.4 H Eosinophils # (Manual) Basophils # (Manual) PT INR POC ABG pH ABG pH POC ABG pCO2 POC ABG pO2 ABG pO2 ABG Base Excess ABG Hemoglobin Sodium Potassium Chloride Carbon Dioxide BUN Creatinine Glucose POC Glucose 226 H 183 H Calcium Phosphorus Magnesium AST ALT Alkaline Phosphatase Troponin T C-Reactive Protein Total Protein Albumin HDL Cholesterol Miscellaneous Test Crossmatch 08/24/17 08/24/17 08/24/17 05:06 09:30 12:04 WBC RBC Hgb Hct MCV MCH RDW Plt Count Lymph % (Auto) [place] % (Auto) [place] # Seg Neutrophils % Seg Neuts % (Manual) Lymphocytes % (Manual) Monocytes % (Manual) Nucleated RBC % Seg Neutrophils # Seg Neutrophils # Man Lymphocytes # (Manual) Monocytes # (Manual) Eosinophils # (Manual) Basophils # (Manual) PT INR POC ABG pH ABG pH POC ABG pCO2 POC ABG pO2 ABG pO2 ABG Base Excess ABG Hemoglobin Sodium Potassium Chloride Carbon Dioxide BUN 46 H Creatinine 2.5 H Glucose 176 H POC Glucose 201 H 181 H Calcium Phosphorus Magnesium AST ALT Alkaline Phosphatase Troponin T C-Reactive Protein Total Protein Albumin HDL Cholesterol Miscellaneous Test Crossmatch 08/24/17 08/24/17 08/25/17 18:04 23:05 05:05 WBC RBC Hgb Hct MCV MCH RDW Plt Count Lymph % (Auto) [place] % (Auto) [place] # Seg Neutrophils % Seg Neuts % (Manual) Lymphocytes % (Manual) Monocytes % (Manual) Nucleated RBC % Seg Neutrophils # Seg Neutrophils # Man Lymphocytes # (Manual) Monocytes # (Manual) Eosinophils # (Manual) Basophils # (Manual) PT INR POC ABG pH ABG pH POC ABG pCO2 POC ABG pO2 ABG pO2 ABG Base Excess ABG Hemoglobin Sodium Potassium Chloride Carbon Dioxide BUN Creatinine Glucose POC Glucose 189 H 175 H 190 H Calcium Phosphorus Magnesium AST ALT Alkaline Phosphatase Troponin T C-Reactive Protein Total Protein Albumin HDL Cholesterol Miscellaneous Test Crossmatch 08/25/17 08/25/17 08/26/17 07:02 11:53 05:30 WBC 33.5 H RBC 2.47 L Hgb 7.3 L Hct 23.0 L MCV MCH RDW 21.3 H Plt Count Lymph % (Auto) [place] % (Auto) [place] # Seg Neutrophils % Seg Neuts % (Manual) 92.0 H Lymphocytes % (Manual) 1.0 L Monocytes % (Manual) Nucleated RBC % Seg Neutrophils # Seg Neutrophils # Man 30.8 H Lymphocytes # (Manual) 0.3 L Monocytes # (Manual) Eosinophils # (Manual) Basophils # (Manual) PT INR POC ABG pH ABG pH POC ABG pCO2 POC ABG pO2 ABG pO2 ABG Base Excess ABG Hemoglobin Sodium Potassium Chloride Carbon Dioxide BUN 32 H Creatinine 5.0 H D Glucose 117 H POC Glucose 191 H Calcium 8.0 L Phosphorus Magnesium AST ALT Alkaline Phosphatase Troponin T C-Reactive Protein Total Protein Albumin HDL Cholesterol Miscellaneous Test Crossmatch 08/26/17 08/26/17 08/26/17 05:30 06:44 13:26 WBC RBC Hgb Hct MCV MCH RDW Plt Count Lymph % (Auto) [place] % (Auto) [place] # Seg Neutrophils % Seg Neuts % (Manual) Lymphocytes % (Manual) Monocytes % (Manual) Nucleated RBC % Seg Neutrophils # Seg Neutrophils # Man Lymphocytes # (Manual) Monocytes # (Manual) Eosinophils # (Manual) Basophils # (Manual) PT INR POC ABG pH ABG pH POC ABG pCO2 POC ABG pO2 ABG pO2 ABG Base Excess ABG Hemoglobin Sodium Potassium 5.2 H Chloride Carbon Dioxide BUN 80 H Creatinine 3.4 H Glucose 193 H POC Glucose 232 H 207 H Calcium 8.3 L Phosphorus 6.80 H D Magnesium 2.60 H AST 135 H ALT Alkaline Phosphatase 211 H Troponin T C-Reactive Protein Total Protein 4.8 L Albumin 2.0 L HDL Cholesterol Miscellaneous Test Crossmatch 08/27/17 08/27/17 08/27/17 01:08 06:20 06:20 WBC 35.0 H RBC 2.75 L Hgb 8.4 L Hct 25.1 L MCV MCH RDW 21.8 H Plt Count Lymph % (Auto) [place] % (Auto) [place] # Seg Neutrophils % Seg Neuts % (Manual) Lymphocytes % (Manual) 4.5 L Monocytes % (Manual) Nucleated RBC % Seg Neutrophils # Seg Neutrophils # Man 31.9 H Lymphocytes # (Manual) Monocytes # (Manual) 1.2 H Eosinophils # (Manual) Basophils # (Manual) PT INR POC ABG pH ABG pH POC ABG pCO2 POC ABG pO2 ABG pO2 ABG Base Excess ABG Hemoglobin Sodium Potassium Chloride Carbon Dioxide BUN 61 H Creatinine 2.6 H Glucose 184 H POC Glucose 146 H Calcium Phosphorus 4.90 H D Magnesium AST ALT Alkaline Phosphatase Troponin T C-Reactive Protein Total Protein Albumin HDL Cholesterol Miscellaneous Test Crossmatch 08/27/17 08/27/17 08/27/17 07:01 09:17 12:52 WBC RBC Hgb Hct MCV MCH RDW Plt Count Lymph % (Auto) [place] % (Auto) [place] # Seg Neutrophils % Seg Neuts % (Manual) Lymphocytes % (Manual) Monocytes % (Manual) Nucleated RBC % Seg Neutrophils # Seg Neutrophils # Man Lymphocytes # (Manual) Monocytes # (Manual) Eosinophils # (Manual) Basophils # (Manual) PT INR POC ABG pH ABG pH POC ABG pCO2 POC ABG pO2 ABG pO2 ABG Base Excess ABG Hemoglobin Sodium Potassium Chloride Carbon Dioxide BUN Creatinine Glucose POC Glucose 165 H 198 H 218 H Calcium Phosphorus Magnesium AST ALT Alkaline Phosphatase Troponin T C-Reactive Protein Total Protein Albumin HDL Cholesterol Miscellaneous Test Crossmatch 08/27/17 08/28/17 08/28/17 17:27 02:13 06:46 WBC RBC Hgb Hct MCV MCH RDW Plt Count Lymph % (Auto) [place] % (Auto) [place] # Seg Neutrophils % Seg Neuts % (Manual) Lymphocytes % (Manual) Monocytes % (Manual) Nucleated RBC % Seg Neutrophils # Seg Neutrophils # Man Lymphocytes # (Manual) Monocytes # (Manual) Eosinophils # (Manual) Basophils # (Manual) PT INR POC ABG pH ABG pH POC ABG pCO2 POC ABG pO2 ABG pO2 ABG Base Excess ABG Hemoglobin Sodium Potassium Chloride Carbon Dioxide BUN Creatinine Glucose POC Glucose 151 H 155 H 230 H Calcium Phosphorus Magnesium AST ALT Alkaline Phosphatase Troponin T C-Reactive Protein Total Protein Albumin HDL Cholesterol Miscellaneous Test Crossmatch 08/28/17 08/28/17 08/28/17 06:53 06:53 08:19 WBC 31.1 H RBC 2.26 L Hgb 6.8 L Hct 20.9 L MCV MCH RDW 21.7 H Plt Count Lymph % (Auto) [place] % (Auto) [place] # Seg Neutrophils % Seg Neuts % (Manual) 83.0 H Lymphocytes % (Manual) 4.0 L Monocytes % (Manual) Nucleated RBC % Seg Neutrophils # Seg Neutrophils # Man 25.8 H Lymphocytes # (Manual) Monocytes # (Manual) Eosinophils # (Manual) Basophils # (Manual) PT INR POC ABG pH ABG pH POC ABG pCO2 POC ABG pO2 ABG pO2 ABG Base Excess ABG Hemoglobin Sodium Potassium Chloride Carbon Dioxide BUN 81 H Creatinine 3.4 H Glucose 218 H POC Glucose 239 H Calcium Phosphorus 4.90 H Magnesium AST ALT Alkaline Phosphatase Troponin T C-Reactive Protein Total Protein Albumin HDL Cholesterol Miscellaneous Test Crossmatch 08/28/17 08/28/17 08/28/17 11:56 13:05 13:29 WBC RBC Hgb Hct MCV MCH RDW Plt Count Lymph % (Auto) [place] % (Auto) [place] # Seg Neutrophils % Seg Neuts % (Manual) Lymphocytes % (Manual) Monocytes % (Manual) Nucleated RBC % Seg Neutrophils # Seg Neutrophils # Man Lymphocytes # (Manual) Monocytes # (Manual) Eosinophils # (Manual) Basophils # (Manual) PT 16.7 H INR 1.29 H POC ABG pH ABG pH POC ABG pCO2 POC ABG pO2 338 H ABG pO2 ABG Base Excess ABG Hemoglobin Sodium Potassium Chloride Carbon Dioxide BUN Creatinine Glucose POC Glucose Calcium Phosphorus Magnesium AST ALT Alkaline Phosphatase Troponin T C-Reactive Protein Total Protein Albumin HDL Cholesterol Miscellaneous Test Crossmatch See Detail 08/28/17 08/28/17 08/29/17 16:22 19:20 04:24 WBC RBC Hgb Hct MCV MCH RDW Plt Count Lymph % (Auto) [place] % (Auto) [place] # Seg Neutrophils % Seg Neuts % (Manual) Lymphocytes % (Manual) Monocytes % (Manual) Nucleated RBC % Seg Neutrophils # Seg Neutrophils # Man Lymphocytes # (Manual) Monocytes # (Manual) Eosinophils # (Manual) Basophils # (Manual) PT INR POC ABG pH 7.469 H ABG pH POC ABG pCO2 POC ABG pO2 240 H ABG pO2 ABG Base Excess ABG Hemoglobin Sodium Potassium Chloride Carbon Dioxide BUN Creatinine Glucose POC Glucose 209 H 195 H Calcium Phosphorus Magnesium AST ALT Alkaline Phosphatase Troponin T C-Reactive Protein Total Protein Albumin HDL Cholesterol Miscellaneous Test Crossmatch 08/29/17 08/29/17 08/29/17 04:30 04:30 12:07 WBC 44.9 H* RBC Hgb Hct MCV MCH RDW 23.1 H Plt Count Lymph % (Auto) [place] % (Auto) [place] # Seg Neutrophils % Seg Neuts % (Manual) 38.0 L Lymphocytes % (Manual) 10.0 L Monocytes % (Manual) 10.0 H Nucleated RBC % 6.0 H Seg Neutrophils # Seg Neutrophils # Man 17.1 H Lymphocytes # (Manual) Monocytes # (Manual) 4.5 H Eosinophils # (Manual) Basophils # (Manual) PT INR POC ABG pH ABG pH POC ABG pCO2 POC ABG pO2 ABG pO2 ABG Base Excess ABG Hemoglobin Sodium Potassium Chloride Carbon Dioxide BUN 61 H Creatinine 2.4 H Glucose 226 H POC Glucose 200 H Calcium Phosphorus Magnesium AST ALT Alkaline Phosphatase Troponin T C-Reactive Protein Total Protein Albumin HDL Cholesterol Miscellaneous Test Crossmatch 08/29/17 08/29/17 08/29/17 12:30 12:30 17:23 WBC RBC Hgb Hct MCV MCH RDW Plt Count Lymph % (Auto) [place] % (Auto) [place] # Seg Neutrophils % Seg Neuts % (Manual) Lymphocytes % (Manual) Monocytes % (Manual) Nucleated RBC % Seg Neutrophils # Seg Neutrophils # Man Lymphocytes # (Manual) Monocytes # (Manual) Eosinophils # (Manual) Basophils # (Manual) PT INR POC ABG pH ABG pH POC ABG pCO2 POC ABG pO2 ABG pO2 ABG Base Excess ABG Hemoglobin Sodium Potassium Chloride Carbon Dioxide BUN Creatinine Glucose POC Glucose 270 H Calcium Phosphorus Magnesium AST ALT Alkaline Phosphatase Troponin T C-Reactive Protein 19.10 H Total Protein Albumin HDL Cholesterol Miscellaneous Test Flexitest 1 H Crossmatch 08/30/17 08/30/17 08/30/17 00:10 01:30 03:31 WBC RBC Hgb Hct MCV MCH RDW Plt Count Lymph % (Auto) [place] % (Auto) [place] # Seg Neutrophils % Seg Neuts % (Manual) Lymphocytes % (Manual) Monocytes % (Manual) Nucleated RBC % Seg Neutrophils # Seg Neutrophils # Man Lymphocytes # (Manual) Monocytes # (Manual) Eosinophils # (Manual) Basophils # (Manual) PT INR POC ABG pH 7.168 L 7.335 L ABG pH POC ABG pCO2 72.8 H POC ABG pO2 257 H 117 H ABG pO2 ABG Base Excess ABG Hemoglobin Sodium Potassium Chloride Carbon Dioxide BUN Creatinine Glucose POC Glucose 245 H Calcium Phosphorus Magnesium AST ALT Alkaline Phosphatase Troponin T C-Reactive Protein Total Protein Albumin HDL Cholesterol Miscellaneous Test Crossmatch 08/30/17 08/30/17 08/30/17 05:20 05:20 05:20 WBC 40.9 H* RBC 3.64 L Hgb Hct MCV MCH RDW 24.3 H Plt Count Lymph % (Auto) [place] % (Auto) [place] # Seg Neutrophils % Seg Neuts % (Manual) 80.0 H Lymphocytes % (Manual) 3.0 L Monocytes % (Manual) Nucleated RBC % 1.0 H Seg Neutrophils # Seg Neutrophils # Man 32.7 H Lymphocytes # (Manual) Monocytes # (Manual) Eosinophils # (Manual) Basophils # (Manual) PT INR POC ABG pH ABG pH POC ABG pCO2 POC ABG pO2 ABG pO2 ABG Base Excess ABG Hemoglobin Sodium Potassium Chloride Carbon Dioxide BUN 83 H Creatinine 2.9 H Glucose 334 H POC Glucose 309 H Calcium Phosphorus Magnesium AST ALT Alkaline Phosphatase Troponin T C-Reactive Protein Total Protein Albumin HDL Cholesterol Miscellaneous Test Crossmatch 08/30/17 08/30/17 08/31/17 12:18 17:36 00:17 WBC RBC Hgb Hct MCV MCH RDW Plt Count Lymph % (Auto) [place] % (Auto) [place] # Seg Neutrophils % Seg Neuts % (Manual) Lymphocytes % (Manual) Monocytes % (Manual) Nucleated RBC % Seg Neutrophils # Seg Neutrophils # Man Lymphocytes # (Manual) Monocytes # (Manual) Eosinophils # (Manual) Basophils # (Manual) PT INR POC ABG pH ABG pH POC ABG pCO2 POC ABG pO2 ABG pO2 ABG Base Excess ABG Hemoglobin Sodium Potassium Chloride Carbon Dioxide BUN Creatinine Glucose POC Glucose 273 H 293 H 360 H Calcium Phosphorus Magnesium AST ALT Alkaline Phosphatase Troponin T C-Reactive Protein Total Protein Albumin HDL Cholesterol Miscellaneous Test Crossmatch 08/31/17 08/31/17 08/31/17 05:30 05:30 05:32 WBC 29.9 H RBC 2.89 L Hgb 8.2 L Hct 24.7 L D MCV MCH RDW 24.4 H Plt Count Lymph % (Auto) [place] % (Auto) [place] # Seg Neutrophils % Seg Neuts % (Manual) Lymphocytes % (Manual) 2.0 L Monocytes % (Manual) Nucleated RBC % 2.0 H Seg Neutrophils # Seg Neutrophils # Man 18.5 H Lymphocytes # (Manual) 0.6 L Monocytes # (Manual) 0.9 H Eosinophils # (Manual) Basophils # (Manual) PT INR POC ABG pH ABG pH POC ABG pCO2 POC ABG pO2 ABG pO2 ABG Base Excess ABG Hemoglobin Sodium Potassium Chloride Carbon Dioxide BUN 62 H Creatinine 2.2 H Glucose 245 H POC Glucose 257 H Calcium Phosphorus 2.10 L D Magnesium 1.60 L AST ALT Alkaline Phosphatase Troponin T C-Reactive Protein Total Protein Albumin HDL Cholesterol Miscellaneous Test Crossmatch 08/31/17 08/31/17 08/31/17 11:56 12:05 18:14 WBC 32.5 H RBC 3.19 L Hgb 8.8 L Hct 27.9 L MCV MCH RDW 24.9 H Plt Count Lymph % (Auto) [place] % (Auto) [place] # Seg Neutrophils % Seg Neuts % (Manual) Lymphocytes % (Manual) 1.0 L Monocytes % (Manual) 12.0 H Nucleated RBC % 1.0 H Seg Neutrophils # Seg Neutrophils # Man 13.3 H Lymphocytes # (Manual) 0.3 L Monocytes # (Manual) 3.9 H Eosinophils # (Manual) Basophils # (Manual) PT INR POC ABG pH ABG pH POC ABG pCO2 POC ABG pO2 ABG pO2 ABG Base Excess ABG Hemoglobin Sodium Potassium Chloride Carbon Dioxide BUN Creatinine Glucose POC Glucose 245 H Calcium Phosphorus Magnesium AST ALT Alkaline Phosphatase Troponin T C-Reactive Protein Total Protein Albumin HDL Cholesterol Miscellaneous Test Crossmatch See Detail 08/31/17 08/31/17 08/31/17 18:14 18:15 23:53 WBC RBC Hgb Hct MCV MCH RDW Plt Count Lymph % (Auto) [place] % (Auto) [place] # Seg Neutrophils % Seg Neuts % (Manual) Lymphocytes % (Manual) Monocytes % (Manual) Nucleated RBC % Seg Neutrophils # Seg Neutrophils # Man Lymphocytes # (Manual) Monocytes # (Manual) Eosinophils # (Manual) Basophils # (Manual) PT 15.1 H INR POC ABG pH ABG pH POC ABG pCO2 POC ABG pO2 ABG pO2 ABG Base Excess ABG Hemoglobin Sodium 136 L Potassium Chloride Carbon Dioxide 21 L BUN 69 H Creatinine 2.3 H Glucose 227 H POC Glucose 301 H Calcium Phosphorus 2.40 L Magnesium 1.50 L AST 143 H ALT 114 H Alkaline Phosphatase 267 H Troponin T C-Reactive Protein Total Protein 4.1 L Albumin 1.8 L HDL Cholesterol Miscellaneous Test Crossmatch 09/01/17 09/01/17 09/01/17 05:00 05:00 05:20 WBC 33.9 H RBC 2.85 L Hgb 7.8 L Hct 24.8 L MCV MCH 27 L RDW 23.9 H Plt Count Lymph % (Auto) [place] % (Auto) [place] # Seg Neutrophils % Seg Neuts % (Manual) Lymphocytes % (Manual) 5.0 L Monocytes % (Manual) Nucleated RBC % Seg Neutrophils # Seg Neutrophils # Man 23.1 H Lymphocytes # (Manual) Monocytes # (Manual) Eosinophils # (Manual) Basophils # (Manual) PT INR POC ABG pH ABG pH 7.348 L POC ABG pCO2 POC ABG pO2 ABG pO2 70.2 L ABG Base Excess ABG Hemoglobin 7.5 L Sodium Potassium Chloride Carbon Dioxide BUN 51 H Creatinine 1.8 H Glucose 195 H POC Glucose Calcium Phosphorus 1.70 L D Magnesium 1.60 L AST 80 H ALT 82 H Alkaline Phosphatase 243 H Troponin T C-Reactive Protein Total Protein 4.2 L Albumin 1.7 L HDL Cholesterol Miscellaneous Test Crossmatch 09/01/17 09/01/17 09/01/17 05:47 11:37 17:39 WBC RBC Hgb Hct MCV MCH RDW Plt Count Lymph % (Auto) [place] % (Auto) [place] # Seg Neutrophils % Seg Neuts % (Manual) Lymphocytes % (Manual) Monocytes % (Manual) Nucleated RBC % Seg Neutrophils # Seg Neutrophils # Man Lymphocytes # (Manual) Monocytes # (Manual) Eosinophils # (Manual) Basophils # (Manual) PT INR POC ABG pH ABG pH POC ABG pCO2 POC ABG pO2 ABG pO2 ABG Base Excess ABG Hemoglobin Sodium Potassium Chloride Carbon Dioxide BUN Creatinine Glucose POC Glucose 230 H 254 H 297 H Calcium Phosphorus Magnesium AST ALT Alkaline Phosphatase Troponin T C-Reactive Protein Total Protein Albumin HDL Cholesterol Miscellaneous Test Crossmatch 09/01/17 09/02/17 09/02/17 23:14 04:55 05:31 WBC RBC Hgb Hct MCV MCH RDW Plt Count Lymph % (Auto) [place] % (Auto) [place] # Seg Neutrophils % Seg Neuts % (Manual) Lymphocytes % (Manual) Monocytes % (Manual) Nucleated RBC % Seg Neutrophils # Seg Neutrophils # Man Lymphocytes # (Manual) Monocytes # (Manual) Eosinophils # (Manual) Basophils # (Manual) PT INR POC ABG pH ABG pH POC ABG pCO2 POC ABG pO2 ABG pO2 124.8 H ABG Base Excess -2.9 L ABG Hemoglobin 5.8 L Sodium Potassium Chloride Carbon Dioxide BUN Creatinine Glucose POC Glucose 291 H 245 H Calcium Phosphorus Magnesium AST ALT Alkaline Phosphatase Troponin T C-Reactive Protein Total Protein Albumin HDL Cholesterol Miscellaneous Test Crossmatch 09/02/17 06:10 WBC RBC Hgb Hct MCV MCH RDW Plt Count Lymph % (Auto) [place] % (Auto) [place] # Seg Neutrophils % Seg Neuts % (Manual) Lymphocytes % (Manual) Monocytes % (Manual) Nucleated RBC % Seg Neutrophils # Seg Neutrophils # Man Lymphocytes # (Manual) Monocytes # (Manual) Eosinophils # (Manual) Basophils # (Manual) PT INR POC ABG pH ABG pH POC ABG pCO2 POC ABG pO2 ABG pO2 ABG Base Excess ABG Hemoglobin Sodium Potassium Chloride Carbon Dioxide BUN 68 H Creatinine 2.2 H Glucose 369 H POC Glucose Calcium 8.2 L Phosphorus Magnesium AST ALT Alkaline Phosphatase Troponin T C-Reactive Protein Total Protein Albumin HDL Cholesterol Miscellaneous Test Crossmatch
[2017-09-02] MEDS: MERREM 1,000 MG in NACL 0.9% 100 ML IV SCH (11:30)
[2017-09-02] MEDS: MYCAMINE 100 MG in NACL 0.9% 100 ML IV SCH (11:51)
[2017-09-02] MEDS ORDERED: LEVEMIR SUB-Q ONE (12:00)
[2017-09-02] MEDS ORDERED: MAGNESIUM SULFATE 2GM/50ML 2 GM/50 ML BAG IV ONE (12:00)
--- NOTE | 2017-09-02 15:44 | Progress Note ---
Assessment and Plan POD #2 s/p ex lap, abdominal wash out and abdominal wall closure after wound dehiscence 2 weeks s/p ex lap for gastric perforation and sbo. afebrile, stable with decrease requirements of pressor support. will continue wound dressings will continue to wean pressors and vent as tolerated continue TPN for nutrition, due to her malnutrition, she is having pronounced delay in healing. would not start tube feeds until the integrity of the healing of the stomach perforation is tested. Rec. titrating steroids- pt already at risk for poor wound healing due to multiple co-morbidities and hx of steroids Rec change HD catheter site. PPI. - Patient Problems (1) Peritonitis (acute) generalized Current Visit: Yes Status: Acute Subjective Narrative: Pt remains intubated on levophed. No acute overnight events. afebrile NG 50cc bilious G tube: 350cc bilious MERVIN: 200cc dark red blood. no clots. Objective Vital Signs - 12hr 09/02/17 09/02/17 09/02/17 03:45 04:00 04:15 Temperature 100.1 F H Pulse Rate 87 89 85 Pulse Rate [ Anterior Bilateral Throughout] Pulse Rate [ 81 Apical] Pulse Rate [ Right] Respiratory 19 20 20 Rate Respiratory Rate [Anterior Bilateral Throughout] Blood Pressure 117/47 113/40 112/52 O2 Sat by Pulse 100 100 100 Oximetry 09/02/17 09/02/17 09/02/17 04:30 04:45 05:00 Temperature Pulse Rate 84 84 86 Pulse Rate [ Anterior Bilateral Throughout] Pulse Rate [ Apical] Pulse Rate [ Right] Respiratory 20 20 20 Rate Respiratory Rate [Anterior Bilateral Throughout] Blood Pressure 111/45 113/51 125/49 O2 Sat by Pulse 100 100 100 Oximetry 09/02/17 09/02/17 09/02/17 05:15 05:30 05:45 Temperature Pulse Rate 86 94 H 86 Pulse Rate [ Anterior Bilateral Throughout] Pulse Rate [ Apical] Pulse Rate [ Right] Respiratory 20 18 20 Rate Respiratory Rate [Anterior Bilateral Throughout] Blood Pressure 119/53 119/53 121/55 O2 Sat by Pulse 100 100 100 Oximetry 09/02/17 09/02/17 09/02/17 06:00 06:15 06:30 Temperature Pulse Rate 86 88 87 Pulse Rate [ Anterior Bilateral Throughout] Pulse Rate [ Apical] Pulse Rate [ Right] Respiratory 18 21 17 Rate Respiratory Rate [Anterior Bilateral Throughout] Blood Pressure 113/53 120/50 115/62 O2 Sat by Pulse 100 100 100 Oximetry 09/02/17 09/02/17 09/02/17 06:45 07:00 07:16 Temperature Pulse Rate 84 90 92 H Pulse Rate [ Anterior Bilateral Throughout] Pulse Rate [ Apical] Pulse Rate [ Right] Respiratory 20 13 11 L Rate Respiratory Rate [Anterior Bilateral Throughout] Blood Pressure 127/58 108/55 104/37 O2 Sat by Pulse 100 98 99 Oximetry 09/02/17 09/02/17 09/02/17 07:30 07:45 07:59 Temperature Pulse Rate 90 93 H 92 H Pulse Rate [ Anterior Bilateral Throughout] Pulse Rate [ Apical] Pulse Rate [ Right] Respiratory 14 11 L 19 Rate Respiratory Rate [Anterior Bilateral Throughout] Blood Pressure 103/44 104/42 O2 Sat by Pulse 100 100 99 Oximetry 09/02/17 09/02/17 09/02/17 08:00 08:15 08:30 Temperature 99.5 F Pulse Rate 95 H 92 H 90 Pulse Rate [ Anterior Bilateral Throughout] Pulse Rate [ Apical] Pulse Rate [ 93 H Right] Respiratory 14 13 15 Rate Respiratory Rate [Anterior Bilateral Throughout] Blood Pressure 112/56 111/48 112/55 O2 Sat by Pulse 100 100 100 Oximetry 09/02/17 09/02/17 09/02/17 08:45 09:00 09:15 Temperature Pulse Rate 90 91 H 91 H Pulse Rate [ Anterior Bilateral Throughout] Pulse Rate [ Apical] Pulse Rate [ Right] Respiratory 12 9 L 18 Rate Respiratory Rate [Anterior Bilateral Throughout] Blood Pressure 107/54 116/57 125/58 O2 Sat by Pulse 100 100 100 Oximetry 09/02/17 09/02/17 09/02/17 09:30 09:45 09:50 Temperature Pulse Rate 93 H 89 Pulse Rate [ 96 H Anterior Bilateral Throughout] Pulse Rate [ Apical] Pulse Rate [ Right] Respiratory 13 14 Rate Respiratory 18 Rate [Anterior Bilateral Throughout] Blood Pressure 115/61 125/60 O2 Sat by Pulse 100 100 Oximetry 09/02/17 09/02/17 09/02/17 10:00 10:15 10:30 Temperature Pulse Rate 89 89 88 Pulse Rate [ 96 H Anterior Bilateral Throughout] Pulse Rate [ Apical] Pulse Rate [ Right] Respiratory 10 L 15 15 Rate Respiratory 18 Rate [Anterior Bilateral Throughout] Blood Pressure 119/56 113/64 107/65 O2 Sat by Pulse 100 99 100 Oximetry 09/02/17 09/02/17 09/02/17 10:46 11:00 11:15 Temperature Pulse Rate 88 92 H 92 H Pulse Rate [ Anterior Bilateral Throughout] Pulse Rate [ Apical] Pulse Rate [ Right] Respiratory 15 15 12 Rate Respiratory Rate [Anterior Bilateral Throughout] Blood Pressure 110/62 125/56 125/59 O2 Sat by Pulse 100 100 100 Oximetry 09/02/17 09/02/17 09/02/17 11:30 11:45 11:54 Temperature Pulse Rate 91 H 92 H 92 H Pulse Rate [ Anterior Bilateral Throughout] Pulse Rate [ Apical] Pulse Rate [ Right] Respiratory 17 11 L 12 Rate Respiratory Rate [Anterior Bilateral Throughout] Blood Pressure 136/58 128/63 125/59 O2 Sat by Pulse 100 99 100 Oximetry 09/02/17 09/02/17 09/02/17 12:00 12:09 12:15 Temperature 98.4 F 98.2 F Pulse Rate 91 H 92 H Pulse Rate [ Anterior Bilateral Throughout] Pulse Rate [ Apical] Pulse Rate [ Right] Respiratory 16 11 L Rate Respiratory Rate [Anterior Bilateral Throughout] Blood Pressure 127/66 131/59 O2 Sat by Pulse 100 100 Oximetry 09/02/17 09/02/17 09/02/17 12:30 12:45 13:00 Temperature Pulse Rate 92 H 92 H 92 H Pulse Rate [ Anterior Bilateral Throughout] Pulse Rate [ Apical] Pulse Rate [ Right] Respiratory 11 L 14 15 Rate Respiratory Rate [Anterior Bilateral Throughout] Blood Pressure 131/57 137/59 125/61 O2 Sat by Pulse 100 100 100 Oximetry 09/02/17 09/02/17 09/02/17 13:15 13:30 13:45 Temperature Pulse Rate 91 H 90 93 H Pulse Rate [ Anterior Bilateral Throughout] Pulse Rate [ Apical] Pulse Rate [ Right] Respiratory 10 L 12 11 L Rate Respiratory Rate [Anterior Bilateral Throughout] Blood Pressure 131/59 128/59 117/65 O2 Sat by Pulse 100 100 100 Oximetry 09/02/17 09/02/17 09/02/17 13:53 14:00 14:08 Temperature Pulse Rate 93 H Pulse Rate [ 98 H 96 H Anterior Bilateral Throughout] Pulse Rate [ Apical] Pulse Rate [ Right] Respiratory 12 Rate Respiratory 18 18 Rate [Anterior Bilateral Throughout] Blood Pressure 117/65 O2 Sat by Pulse 100 Oximetry 09/02/17 14:15 Temperature Pulse Rate 95 H Pulse Rate [ Anterior Bilateral Throughout] Pulse Rate [ Apical] Pulse Rate [ Right] Respiratory 11 L Rate Respiratory Rate [Anterior Bilateral Throughout] Blood Pressure 121/63 O2 Sat by Pulse 100 Oximetry - General physical appearance no pain, obese - ENT other (NG in place) - Neck trachea midline - Respiratory normal expansion - Abdomen soft, other (obese, grimace to palpation. midline packing removed. serosang discharge. no active bleeing. no fould smell discharge. retention sutures in place. MERVIN and G tube in place. repacked with iodoform gauze. 4x4s, abdominal pads tape. ) - Neurologic other (does not withdrawl. ) - Musculoskeletal other (+2 edema upper and lower extremities. ) - Labs 09/01/17 05:00 09/02/17 06:10 Diabetes panel 09/02/17 Range/Units 06:10 Sodium 141 (137-145) mmol/L Potassium 4.7 D (3.6-5.0) mmol/L Chloride 102.7 (98-107) mmol/L Carbon Dioxide 23 (22-30) mmol/L BUN 68 H (7-17) mg/dL Creatinine 2.2 H (0.7-1.2) mg/dL Glucose 369 H (65-100) mg/dL Calcium 8.2 L (8.4-10.2) mg/dL Calcium panel 09/02/17 Range/Units 06:10 Calcium 8.2 L (8.4-10.2) mg/dL Phosphorus 3.20 D (2.5-4.5) mg/dL Pituitary panel 09/02/17 Range/Units 06:10 Sodium 141 (137-145) mmol/L Potassium 4.7 D (3.6-5.0) mmol/L Chloride 102.7 (98-107) mmol/L Carbon Dioxide 23 (22-30) mmol/L BUN 68 H (7-17) mg/dL Creatinine 2.2 H (0.7-1.2) mg/dL Glucose 369 H (65-100) mg/dL Calcium 8.2 L (8.4-10.2) mg/dL Adrenal panel 09/02/17 Range/Units 06:10 Sodium 141 (137-145) mmol/L Potassium 4.7 D (3.6-5.0) mmol/L Chloride 102.7 (98-107) mmol/L Carbon Dioxide 23 (22-30) mmol/L BUN 68 H (7-17) mg/dL Creatinine 2.2 H (0.7-1.2) mg/dL Glucose 369 H (65-100) mg/dL Calcium 8.2 L (8.4-10.2) mg/dL
[2017-09-02] MEDS: HEPARIN IV PRN (18:30)
[2017-09-02] MEDS ORDERED: LEVOPHED DRIP 4 MG/NS 250 ML 4 MG/250 ML BAG IV ONE (19:50)
[2017-09-02] MEDS ORDERED: INTRALIPID 20% 250 ML IV SCH (20:00)
[2017-09-02] MEDS ORDERED: TPN ADULT 1,800 ML IV SCH (20:00)
--- NOTE | 2017-09-02 23:47 | Event Note ---
Date: 09/02/17 Patient seen/examined, resting in bed, labs reviewed.
--- NOTE | 2017-09-03 01:13 | Progress Note ---
Assessment and Plan - Patient Problems (1) Leukocytosis Current Visit: Yes Status: Acute Qualifiers: Leukocytosis type: L Plan to address problem: See notes above. make sure that PD access is clean also. see notes. Probably infection from the infected PD catheter. improving. back up again. up/down (2) Anemia Current Visit: Yes Status: Acute Qualifiers: Anemia type: A Iron deficiency anemia type: I Vitamin B12 deficiency anemia type: V Folate deficiency anemia type: F Bone marrow failure anemia type: B Hemolytic anemia type: H Other causes of anemia: O Chronic kidney disease stage: C Plan to address problem: see notes , monitor labs,. see notes above. continue to monitor labs with you. blood transfusion. S/P replacement transfusion. fair. Subjective Date of service: 09/03/17 Principal diagnosis: Interval history: Patient seen today/examined, labs reviewed, case d/w she, and family.complaints of abdominal pain. Patient resting in bed in the ICU, post vascular procedure. labs reviewed, Reactive thrombocytosis, anemia of CD, leukocytosis from infection vs inflamatory process. Patient seen/examined, in bed in the ICU, on the vent post surgery.Labs reviewed , notes reviewed. will continue to monitor labs/patient with you. Replacement transfusion, if /when indicated. patient seen/examined, SBP75, on pressors., lethargic, on the vent, labs reviewed, wbc 39,000 Patient seen/examined, case reviewed, d/w her sister at the bed side. Patient seen/examined, labs reviewed, notes reviewed. severe septic shock from infected PD catheter The high wbc is all infection related. H?H low, and may get replacement transfusion with the next HD. Prognosis remain quite poor. Patient seen/examined, extubated, now on V Mask. labs reviewed. patient seen/examined, resting in bed, still some what lethargic . labs reviewed. Patient seen/examined, resting in bed., some difficulty with breathing./ lethargic. patient seen/examined, resting in bed, looked much better labs reviewed, and fair over all. Patient seen/examined, resting in bed, labs reviewed, case d/w her. Patient seen/examined, resting in bed on BIPAP., labs reviewed. patient seen/examined, resting in bed, on Bipap.labs reviewed, fairly stable. Patient seen today, resting in bed, labs reviewed, H/H low, and transfusion already ordered. Patient seen/examined, resting in bed, transferred back to the unit, due to resp failure. She is now on venting mask. had blood replacement done. Patient seen/examined in the ICU.labs reviewed. patient intubated this am. patient resting in bed.no new issues. Patient seen/examined in the ICU, on vent,Not readily responsive. patient seen, resting in bed, no new cbc ready.will order for today. Objective - Constitutional Vitals: Vital Signs - 12hr 09/02/17 09/02/17 09/02/17 13:15 13:30 13:45 Temperature Pulse Rate 91 H 90 93 H Pulse Rate [ Anterior Bilateral Throughout] Pulse Rate [ Apical] Pulse Rate [ From Monitor] Respiratory 10 L 12 11 L Rate Respiratory Rate [Anterior Bilateral Throughout] Blood Pressure 131/59 128/59 117/65 O2 Sat by Pulse 100 100 100 Oximetry O2 Sat by Pulse Oximetry [ Anterior Bilateral Throughout] 09/02/17 09/02/17 09/02/17 13:53 14:00 14:08 Temperature Pulse Rate 93 H Pulse Rate [ 98 H 96 H Anterior Bilateral Throughout] Pulse Rate [ Apical] Pulse Rate [ From Monitor] Respiratory 12 Rate Respiratory 18 18 Rate [Anterior Bilateral Throughout] Blood Pressure 117/65 O2 Sat by Pulse 100 Oximetry O2 Sat by Pulse Oximetry [ Anterior Bilateral Throughout] 09/02/17 09/02/17 09/02/17 14:15 14:30 14:45 Temperature Pulse Rate 95 H 101 H 94 H Pulse Rate [ Anterior Bilateral Throughout] Pulse Rate [ Apical] Pulse Rate [ From Monitor] Respiratory 11 L 16 14 Rate Respiratory Rate [Anterior Bilateral Throughout] Blood Pressure 121/63 111/66 115/58 O2 Sat by Pulse 100 100 100 Oximetry O2 Sat by Pulse Oximetry [ Anterior Bilateral Throughout] 09/02/17 09/02/17 09/02/17 15:00 15:15 15:25 Temperature 98.8 F Pulse Rate 95 H 93 H 94 H Pulse Rate [ Anterior Bilateral Throughout] Pulse Rate [ Apical] Pulse Rate [ From Monitor] Respiratory 17 9 L Rate Respiratory Rate [Anterior Bilateral Throughout] Blood Pressure 113/60 115/56 111/56 O2 Sat by Pulse 100 100 Oximetry O2 Sat by Pulse 100 Oximetry [ Anterior Bilateral Throughout] 09/02/17 09/02/17 09/02/17 15:30 15:45 16:00 Temperature 98.8 F Pulse Rate 95 H 90 87 Pulse Rate [ Anterior Bilateral Throughout] Pulse Rate [ 77 Apical] Pulse Rate [ 84 From Monitor] Respiratory 11 L 10 L 9 L Rate Respiratory Rate [Anterior Bilateral Throughout] Blood Pressure 104/52 94/53 104/48 O2 Sat by Pulse 100 100 100 Oximetry O2 Sat by Pulse Oximetry [ Anterior Bilateral Throughout] 09/02/17 09/02/17 09/02/17 16:15 16:30 16:45 Temperature Pulse Rate 87 86 87 Pulse Rate [ Anterior Bilateral Throughout] Pulse Rate [ Apical] Pulse Rate [ From Monitor] Respiratory 16 12 8 L Rate Respiratory Rate [Anterior Bilateral Throughout] Blood Pressure 83/46 87/51 57/24 O2 Sat by Pulse 100 98 83 L Oximetry O2 Sat by Pulse Oximetry [ Anterior Bilateral Throughout] 09/02/17 09/02/17 09/02/17 17:00 17:13 17:15 Temperature Pulse Rate 87 79 106 H Pulse Rate [ Anterior Bilateral Throughout] Pulse Rate [ Apical] Pulse Rate [ From Monitor] Respiratory 11 L 23 Rate Respiratory Rate [Anterior Bilateral Throughout] Blood Pressure 157/86 166/59 167/98 O2 Sat by Pulse 100 100 100 Oximetry O2 Sat by Pulse Oximetry [ Anterior Bilateral Throughout] 09/02/17 09/02/17 09/02/17 17:30 17:31 17:45 Temperature Pulse Rate 104 H 104 H 104 H Pulse Rate [ Anterior Bilateral Throughout] Pulse Rate [ Apical] Pulse Rate [ From Monitor] Respiratory 15 20 Rate Respiratory Rate [Anterior Bilateral Throughout] Blood Pressure 125/75 127/75 111/63 O2 Sat by Pulse 100 100 Oximetry O2 Sat by Pulse Oximetry [ Anterior Bilateral Throughout] 09/02/17 09/02/17 09/02/17 18:00 18:01 18:15 Temperature Pulse Rate 109 H 106 H 104 H Pulse Rate [ Anterior Bilateral Throughout] Pulse Rate [ Apical] Pulse Rate [ From Monitor] Respiratory 15 12 Rate Respiratory Rate [Anterior Bilateral Throughout] Blood Pressure 100/52 111/63 100/52 O2 Sat by Pulse 99 100 Oximetry O2 Sat by Pulse Oximetry [ Anterior Bilateral Throughout] 09/02/17 09/02/17 09/02/17 18:30 18:31 18:45 Temperature Pulse Rate 114 H 111 H 111 H Pulse Rate [ Anterior Bilateral Throughout] Pulse Rate [ Apical] Pulse Rate [ From Monitor] Respiratory 17 13 Rate Respiratory Rate [Anterior Bilateral Throughout] Blood Pressure 102/33 102/33 102/33 O2 Sat by Pulse 100 100 Oximetry O2 Sat by Pulse Oximetry [ Anterior Bilateral Throughout] 09/02/17 09/02/17 09/02/17 19:00 19:01 19:15 Temperature Pulse Rate 74 105 H 90 Pulse Rate [ Anterior Bilateral Throughout] Pulse Rate [ Apical] Pulse Rate [ From Monitor] Respiratory 14 20 Rate Respiratory Rate [Anterior Bilateral Throughout] Blood Pressure 100/52 112/46 235/61 O2 Sat by Pulse 100 100 Oximetry O2 Sat by Pulse Oximetry [ Anterior Bilateral Throughout] 09/02/17 09/02/17 09/02/17 19:30 19:45 19:54 Temperature 98.2 F Pulse Rate 92 H 90 84 Pulse Rate [ Anterior Bilateral Throughout] Pulse Rate [ Apical] Pulse Rate [ From Monitor] Respiratory 24 21 20 Rate Respiratory Rate [Anterior Bilateral Throughout] Blood Pressure 134/68 134/68 138/61 O2 Sat by Pulse 100 100 Oximetry O2 Sat by Pulse Oximetry [ Anterior Bilateral Throughout] 09/02/17 09/02/17 09/02/17 20:00 20:01 20:04 Temperature 99.5 F Pulse Rate 83 91 H Pulse Rate [ 82 Anterior Bilateral Throughout] Pulse Rate [ Apical] Pulse Rate [ From Monitor] Respiratory 14 Rate Respiratory 20 Rate [Anterior Bilateral Throughout] Blood Pressure 79/36 75/47 O2 Sat by Pulse 100 100 Oximetry O2 Sat by Pulse Oximetry [ Anterior Bilateral Throughout] 09/02/17 09/02/17 09/02/17 20:15 20:29 20:31 Temperature Pulse Rate 91 H 85 Pulse Rate [ 83 Anterior Bilateral Throughout] Pulse Rate [ Apical] Pulse Rate [ From Monitor] Respiratory 20 20 Rate Respiratory 20 Rate [Anterior Bilateral Throughout] Blood Pressure 75/47 75/47 O2 Sat by Pulse 100 100 Oximetry O2 Sat by Pulse Oximetry [ Anterior Bilateral Throughout] 09/02/17 09/02/17 09/02/17 20:45 21:01 21:15 Temperature Pulse Rate 88 84 82 Pulse Rate [ Anterior Bilateral Throughout] Pulse Rate [ Apical] Pulse Rate [ From Monitor] Respiratory 20 20 19 Rate Respiratory Rate [Anterior Bilateral Throughout] Blood Pressure 75/47 75/47 87/46 O2 Sat by Pulse 100 100 99 Oximetry O2 Sat by Pulse Oximetry [ Anterior Bilateral Throughout] 09/02/17 09/02/17 09/02/17 21:30 21:45 22:00 Temperature Pulse Rate 90 87 89 Pulse Rate [ Anterior Bilateral Throughout] Pulse Rate [ Apical] Pulse Rate [ From Monitor] Respiratory 16 20 20 Rate Respiratory Rate [Anterior Bilateral Throughout] Blood Pressure 82/39 81/41 88/46 O2 Sat by Pulse 100 100 99 Oximetry O2 Sat by Pulse Oximetry [ Anterior Bilateral Throughout] 09/02/17 09/02/17 09/02/17 22:09 22:15 22:30 Temperature Pulse Rate 91 H 84 85 Pulse Rate [ Anterior Bilateral Throughout] Pulse Rate [ Apical] Pulse Rate [ From Monitor] Respiratory 20 20 20 Rate Respiratory Rate [Anterior Bilateral Throughout] Blood Pressure 88/46 93/54 95/44 O2 Sat by Pulse 98 91 100 Oximetry O2 Sat by Pulse Oximetry [ Anterior Bilateral Throughout] 09/02/17 09/02/17 09/02/17 22:45 23:00 23:12 Temperature 97.4 F L Pulse Rate 86 85 Pulse Rate [ Anterior Bilateral Throughout] Pulse Rate [ Apical] Pulse Rate [ From Monitor] Respiratory 11 L 20 Rate Respiratory Rate [Anterior Bilateral Throughout] Blood Pressure 99/55 77/43 O2 Sat by Pulse 100 100 Oximetry O2 Sat by Pulse Oximetry [ Anterior Bilateral Throughout] 09/02/17 09/02/17 09/02/17 23:15 23:30 23:45 Temperature Pulse Rate 93 H 82 83 Pulse Rate [ Anterior Bilateral Throughout] Pulse Rate [ Apical] Pulse Rate [ From Monitor] Respiratory 18 20 21 Rate Respiratory Rate [Anterior Bilateral Throughout] Blood Pressure 77/43 86/56 86/56 O2 Sat by Pulse 93 100 100 Oximetry O2 Sat by Pulse Oximetry [ Anterior Bilateral Throughout] 09/02/17 09/03/17 09/03/17 23:59 00:00 00:15 Temperature Pulse Rate 84 84 84 Pulse Rate [ Anterior Bilateral Throughout] Pulse Rate [ Apical] Pulse Rate [ From Monitor] Respiratory 16 20 Rate Respiratory Rate [Anterior Bilateral Throughout] Blood Pressure 95/65 87/62 87/62 O2 Sat by Pulse 100 100 Oximetry O2 Sat by Pulse Oximetry [ Anterior Bilateral Throughout] 09/03/17 09/03/17 09/03/17 00:31 00:45 01:00 Temperature Pulse Rate 87 88 85 Pulse Rate [ Anterior Bilateral Throughout] Pulse Rate [ Apical] Pulse Rate [ From Monitor] Respiratory 22 16 20 Rate Respiratory Rate [Anterior Bilateral Throughout] Blood Pressure 95/63 109/64 123/50 O2 Sat by Pulse 100 Oximetry O2 Sat by Pulse Oximetry [ Anterior Bilateral Throughout] General appearance: Present: severe distress, well-nourished - EENT ENT: clear oral mucosa Ears: bilateral: normal - Neck Neck: supple, normal ROM - Respiratory Respiratory: bilateral: diminished (on vent) - Breasts Breasts: deferred - Cardiovascular Rhythm: regular Heart Sounds: Present: S1 & S2. Absent: gallop, rub Extremities: pulses intact, No edema, normal color, Full ROM - Gastrointestinal General gastrointestinal: Present: soft, non-tender, non-distended, normal bowel sounds Rectal Exam: deferred - Genitourinary Female genitourinary: deferred - Integumentary Integumentary: clear, warm, dry - Labs CBC & Chem 7: 09/01/17 05:00 09/02/17 06:10 Labs: Abnormal lab results 09/02/17 09/02/17 09/02/17 Range/Units 04:55 05:31 06:10 ABG pO2 124.8 H (80.0-90.0) mm Hg ABG Base Excess -2.9 L (-2.0-3.0) mmol/L ABG Hemoglobin 5.8 L (12.0-16.0) gm/dl BUN 68 H (7-17) mg/dL Creatinine 2.2 H (0.7-1.2) mg/dL Glucose 369 H (65-100) mg/dL POC Glucose 245 H (70-105) Calcium 8.2 L (8.4-10.2) mg/dL 09/02/17 09/02/17 09/02/17 Range/Units 11:58 15:37 23:50 ABG pO2 (80.0-90.0) mm Hg ABG Base Excess (-2.0-3.0) mmol/L ABG Hemoglobin (12.0-16.0) gm/dl BUN (7-17) mg/dL Creatinine (0.7-1.2) mg/dL Glucose (65-100) mg/dL POC Glucose 333 H 314 H 240 H (70-105) Calcium (8.4-10.2) mg/dL
[2017-09-03] MEDS: DUONEB *Not for PRN Use IH SCH ×4 (01:47→19:56)
[2017-09-03] MEDS: fentaNYL DRIP Premix 2,000 MCG/100 ML BAG IV SCH ×4 (03:06→22:45)
[2017-09-03 05:18] LABS: ABG Base Excess 0.6 mmol/L (-2.0-3.0); ABG HCO3 25.4 mmol/L (20.0-26.0); ABG Oxygen Saturation 98.6 % (95.0-99.0); ABG PCO2 41.2 mm Hg; ABG PH 7.407 pH Units (7.350-7.450); ABG PO2 133.4 mm Hg (80.0-90.0)
[2017-09-03] MEDS: LEVOPHED 8 MG in NACL 0.9% 250ML 242 ML IV SCH (06:03)
[2017-09-03 07:08] LABS: Hematocrit 21.3 % (30.3-42.9); Hemoglobin 6.9 gm/dl (10.1-14.3); Mean Corpuscular HGB Conc 32 % (30-34); Mean Corpuscular Hemoglobin 28 pg (28-32); Mean Corpuscular Volume 87 fl (79-97); Platelet Count 276 K/mm3 (140-440); Red Blood Count 2.46 M/mm3 (3.65-5.03)
[2017-09-03 07:13] LABS: Red Cell Distribution Width 24.9 % (13.2-15.2); White Blood Count 41.5 K/mm3 (4.5-11.0)
[2017-09-03 07:25] LABS: Albumin 1.7 g/dL (3.9-5); Albumin/Globulin Ratio 0.6 %; Bilirubin,Total 0.9 mg/dL (0.1-1.2); Chloride 98.1 mmol/L (98-107); Potassium 4.3 mmol/L (3.6-5.0); Total Protein 4.4 g/dL (6.3-8.2)
[2017-09-03 08:00] LABS: Blastocytes % (Manual) 0 %
[2017-09-03 08:01] LABS: Anisocytosis 2+; Basophils % (Manual) 0 % (0.0-1.8); Eosinophils % (Manual) 0 % (0.0-4.3); Hypochromasia Few; Nucleated Red Blood Cells 1.5 % (0.0-0.9); Polychromasia Few; Total Cells Counted Percent 16.5
[2017-09-03 08:02] LABS: Diff Status Complete; Ovalocytes 1+; Poikilocytosis Rare
[2017-09-03] MEDS ORDERED: NACL 0.9% 100 ML IV PRN (08:10)
--- NOTE | 2017-09-03 08:10 | Progress Note ---
Assessment and Plan - Patient Problems (1) ESRD (end stage renal disease) on dialysis Current Visit: Yes Status: Acute Plan to address problem: Continue HD on MWF and Isolated UF on TTS. Patient is on TPN. (2) Hyperkalemia Current Visit: Yes Status: Acute Plan to address problem: K level is better. (3) Anemia Current Visit: No Status: Chronic Qualifiers: Anemia type: due to chronic kidney disease Iron deficiency anemia type: I Vitamin B12 deficiency anemia type: V Folate deficiency anemia type: F Bone marrow failure anemia type: B Hemolytic anemia type: H Other causes of anemia: O Chronic kidney disease stage: on chronic dialysis Qualified Code(s ): N18.6 - End stage renal disease; D63.1 - Anemia in chronic kidney disease; Z99.2 - Dependence on renal dialysis Plan to address problem: 2 units of PRBC today. Epogen. (4) Hypotension Current Visit: Yes Status: Chronic Qualifiers: Hypotension type: H Trimester: T Plan to address problem: On Levophed. (5) Volume overload Current Visit: Yes Status: Acute Qualifiers: Hypervolemia type: H Plan to address problem: UF as tolerated. (6) Leukocytosis Current Visit: Yes Status: Acute Qualifiers: Leukocytosis type: unspecified Qualified Code(s): D72.829 - Elevated white blood cell count, unspecified (7) Acute respiratory failure with hypoxemia Current Visit: Yes Status: Acute Plan to address problem: On the vent. (8) Sepsis Current Visit: Yes Status: Acute Qualifiers: Sepsis type: S Subjective Date of service: 09/03/17 Principal diagnosis: Interval history: Patient was seen and examined at the bedside. Patient remain intubated. Objective - Vital Signs Vital signs: Vital Signs - 12hr 09/02/17 09/02/17 09/02/17 20:15 20:29 20:31 Temperature Pulse Rate 91 H 85 Pulse Rate [ 83 Anterior Bilateral Throughout] Pulse Rate [ Apical] Respiratory 20 20 Rate Respiratory 20 Rate [Anterior Bilateral Throughout] Blood Pressure 75/47 75/47 O2 Sat by Pulse 100 100 Oximetry 09/02/17 09/02/17 09/02/17 20:45 21:01 21:15 Temperature Pulse Rate 88 84 82 Pulse Rate [ Anterior Bilateral Throughout] Pulse Rate [ Apical] Respiratory 20 20 19 Rate Respiratory Rate [Anterior Bilateral Throughout] Blood Pressure 75/47 75/47 87/46 O2 Sat by Pulse 100 100 99 Oximetry 09/02/17 09/02/17 09/02/17 21:30 21:45 22:00 Temperature Pulse Rate 90 87 89 Pulse Rate [ Anterior Bilateral Throughout] Pulse Rate [ Apical] Respiratory 16 20 20 Rate Respiratory Rate [Anterior Bilateral Throughout] Blood Pressure 82/39 81/41 88/46 O2 Sat by Pulse 100 100 99 Oximetry 09/02/17 09/02/17 09/02/17 22:09 22:15 22:30 Temperature Pulse Rate 91 H 84 85 Pulse Rate [ Anterior Bilateral Throughout] Pulse Rate [ Apical] Respiratory 20 20 20 Rate Respiratory Rate [Anterior Bilateral Throughout] Blood Pressure 88/46 93/54 95/44 O2 Sat by Pulse 98 91 100 Oximetry 09/02/17 09/02/17 09/02/17 22:45 23:00 23:12 Temperature 97.4 F L Pulse Rate 86 85 Pulse Rate [ Anterior Bilateral Throughout] Pulse Rate [ Apical] Respiratory 11 L 20 Rate Respiratory Rate [Anterior Bilateral Throughout] Blood Pressure 99/55 77/43 O2 Sat by Pulse 100 100 Oximetry 09/02/17 09/02/17 09/02/17 23:15 23:30 23:45 Temperature Pulse Rate 93 H 83 83 Pulse Rate [ Anterior Bilateral Throughout] Pulse Rate [ 83 Apical] Respiratory 18 20 21 Rate Respiratory Rate [Anterior Bilateral Throughout] Blood Pressure 77/43 86/56 86/56 O2 Sat by Pulse 93 100 100 Oximetry 09/02/17 09/03/17 09/03/17 23:59 00:00 00:15 Temperature Pulse Rate 84 84 84 Pulse Rate [ Anterior Bilateral Throughout] Pulse Rate [ Apical] Respiratory 16 20 Rate Respiratory Rate [Anterior Bilateral Throughout] Blood Pressure 95/65 87/62 87/62 O2 Sat by Pulse 100 100 Oximetry 09/03/17 09/03/17 09/03/17 00:31 00:45 01:00 Temperature Pulse Rate 87 88 85 Pulse Rate [ Anterior Bilateral Throughout] Pulse Rate [ Apical] Respiratory 22 16 20 Rate Respiratory Rate [Anterior Bilateral Throughout] Blood Pressure 95/63 109/64 123/50 O2 Sat by Pulse 100 Oximetry 09/03/17 09/03/17 09/03/17 01:15 01:31 01:45 Temperature Pulse Rate 86 82 85 Pulse Rate [ 83 Anterior Bilateral Throughout] Pulse Rate [ Apical] Respiratory 19 18 20 Rate Respiratory 20 Rate [Anterior Bilateral Throughout] Blood Pressure 107/56 109/64 107/54 O2 Sat by Pulse 97 100 98 Oximetry 09/03/17 09/03/17 09/03/17 01:56 02:00 02:15 Temperature Pulse Rate 87 92 H Pulse Rate [ 84 Anterior Bilateral Throughout] Pulse Rate [ Apical] Respiratory 13 19 Rate Respiratory 23 Rate [Anterior Bilateral Throughout] Blood Pressure 97/67 97/67 O2 Sat by Pulse 100 99 Oximetry 09/03/17 09/03/17 09/03/17 02:31 02:45 03:00 Temperature Pulse Rate 83 81 82 Pulse Rate [ Anterior Bilateral Throughout] Pulse Rate [ Apical] Respiratory 20 20 20 Rate Respiratory Rate [Anterior Bilateral Throughout] Blood Pressure 134/58 122/63 128/56 O2 Sat by Pulse 100 100 94 Oximetry 09/03/17 09/03/17 09/03/17 03:15 03:23 03:30 Temperature 99 F Pulse Rate 87 83 Pulse Rate [ Anterior Bilateral Throughout] Pulse Rate [ Apical] Respiratory 18 21 Rate Respiratory Rate [Anterior Bilateral Throughout] Blood Pressure 98/59 90/61 O2 Sat by Pulse 92 94 Oximetry 09/03/17 09/03/17 09/03/17 03:45 04:01 04:14 Temperature Pulse Rate 84 84 80 Pulse Rate [ Anterior Bilateral Throughout] Pulse Rate [ Apical] Respiratory 13 18 Rate Respiratory Rate [Anterior Bilateral Throughout] Blood Pressure 100/70 100/68 138/61 O2 Sat by Pulse 70 L 100 100 Oximetry 09/03/17 09/03/17 09/03/17 04:15 04:20 04:30 Temperature Pulse Rate 78 79 Pulse Rate [ Anterior Bilateral Throughout] Pulse Rate [ Apical] Respiratory 17 24 20 Rate Respiratory Rate [Anterior Bilateral Throughout] Blood Pressure 100/68 100/64 O2 Sat by Pulse 100 98 100 Oximetry 09/03/17 09/03/17 09/03/17 04:45 05:01 05:15 Temperature Pulse Rate 84 82 80 Pulse Rate [ Anterior Bilateral Throughout] Pulse Rate [ Apical] Respiratory 19 19 20 Rate Respiratory Rate [Anterior Bilateral Throughout] Blood Pressure 100/64 100/64 100/64 O2 Sat by Pulse 100 100 100 Oximetry 09/03/17 09/03/17 09/03/17 05:31 05:45 06:00 Temperature Pulse Rate 81 79 78 Pulse Rate [ Anterior Bilateral Throughout] Pulse Rate [ Apical] Respiratory 19 17 20 Rate Respiratory Rate [Anterior Bilateral Throughout] Blood Pressure 119/57 128/59 144/70 O2 Sat by Pulse 100 100 100 Oximetry 09/03/17 09/03/17 09/03/17 06:15 06:31 06:45 Temperature Pulse Rate 84 84 86 Pulse Rate [ Anterior Bilateral Throughout] Pulse Rate [ Apical] Respiratory 20 15 18 Rate Respiratory Rate [Anterior Bilateral Throughout] Blood Pressure 144/70 129/65 129/65 O2 Sat by Pulse 100 100 100 Oximetry 09/03/17 07:01 Temperature Pulse Rate 83 Pulse Rate [ Anterior Bilateral Throughout] Pulse Rate [ Apical] Respiratory 20 Rate Respiratory Rate [Anterior Bilateral Throughout] Blood Pressure 108/31 O2 Sat by Pulse 100 Oximetry - General Appearance General appearance: well-developed, appears stated age, obese, intubated (on vent), other (right groin hemodialysis catheter) EENT: ATNC, PERRL Neck: supple Respiratory: Present: Other (coarse breath sounds) Cardiology: regular, S1S2, no murmurs Gastrointestinal: normoactive bowel sounds, obese Integumentary: no rash Neurologic: other (barely arousable) Musculoskeletal: other (2+ edema of both LEs noted) - Lab 09/03/17 05:00 09/03/17 04:00 Most recent lab results ABG pH 7.407 pH Units (7.350-7.450) 09/03/17 Unknown ABG pCO2 41.2 mm Hg 09/03/17 Unknown ABG pO2 133.4 mm Hg (80.0-90.0) H 09/03/17 Unknown ABG HCO3 25.4 mmol/L (20.0-26.0) 09/03/17 Unknown ABG O2 Saturation 98.6 % (95.0-99.0) 09/03/17 Unknown Calcium 8.0 mg/dL (8.4-10.2) L 09/03/17 04:00 Phosphorus 3.20 mg/dL (2.5-4.5) D 09/02/17 06:10 Magnesium 1.90 mg/dL (1.7-2.3) 09/02/17 06:10
--- NOTE | 2017-09-03 08:19 | Progress Note ---
Assessment and Plan 62 y/o female originally admitted with hypotension, now back to ICU secondary to worsening hypotension, concern for sepsis, with acute respiratory failure post-op from ex-lap for abdominal distention and possible ileus, now back from OR after worsening respiratory failure, requiring re-intubation and wash out of abdomen 1. Family is agreeable to trach. Will discuss with CM in regards to where this will take place rather here or at the LTACH. Family has agreed to LTACH placement as well. However, suggest that LTACH be firmly aware of abdominal issues and have surgery there that is willing to follow. 2. Will transfuse 2 units of PRBC with HD today. Discussed with Ren[facility] and they agree. 3. Continue PSV trials as tolerated. 4. Abx therapy as previously ordered per ID. 5. Wean levo for MAPS >60 6. Agree with surgery about steroids, however, patient's BP seems to have responded to this and she did become hemodynamically unstable when weaning was attempted last week. Benefits at this time I feel outweigh the risk, without proper blood pressure, one could argue that the wound would still not heal without adequate blood flow. Overall prognosis is guarded CCT [id number] Subjective Date of service: 09/03/17 Principal diagnosis: Interval history: No acute events overnight. Eyes open but not following commands. Appears to be in pain as we move around her abdominal wound. H/H is low today. Still on levophed at 3mcgs, MAP is 78. Family not at bedside yet. Per CM, family has agreed to tracheostomy. Objective Vital Signs - 12hr 09/02/17 09/02/17 09/02/17 20:15 20:29 20:31 Temperature Pulse Rate 91 H 85 Pulse Rate [ 83 Anterior Bilateral Throughout] Pulse Rate [ Apical] Respiratory 20 20 Rate Respiratory 20 Rate [Anterior Bilateral Throughout] Blood Pressure 75/47 75/47 O2 Sat by Pulse 100 100 Oximetry 09/02/17 09/02/17 09/02/17 20:45 21:01 21:15 Temperature Pulse Rate 88 84 82 Pulse Rate [ Anterior Bilateral Throughout] Pulse Rate [ Apical] Respiratory 20 20 19 Rate Respiratory Rate [Anterior Bilateral Throughout] Blood Pressure 75/47 75/47 87/46 O2 Sat by Pulse 100 100 99 Oximetry 09/02/17 09/02/17 09/02/17 21:30 21:45 22:00 Temperature Pulse Rate 90 87 89 Pulse Rate [ Anterior Bilateral Throughout] Pulse Rate [ Apical] Respiratory 16 20 20 Rate Respiratory Rate [Anterior Bilateral Throughout] Blood Pressure 82/39 81/41 88/46 O2 Sat by Pulse 100 100 99 Oximetry 09/02/17 09/02/17 09/02/17 22:09 22:15 22:30 Temperature Pulse Rate 91 H 84 85 Pulse Rate [ Anterior Bilateral Throughout] Pulse Rate [ Apical] Respiratory 20 20 20 Rate Respiratory Rate [Anterior Bilateral Throughout] Blood Pressure 88/46 93/54 95/44 O2 Sat by Pulse 98 91 100 Oximetry 09/02/17 09/02/17 09/02/17 22:45 23:00 23:12 Temperature 97.4 F L Pulse Rate 86 85 Pulse Rate [ Anterior Bilateral Throughout] Pulse Rate [ Apical] Respiratory 11 L 20 Rate Respiratory Rate [Anterior Bilateral Throughout] Blood Pressure 99/55 77/43 O2 Sat by Pulse 100 100 Oximetry 09/02/17 09/02/17 09/02/17 23:15 23:30 23:45 Temperature Pulse Rate 93 H 83 83 Pulse Rate [ Anterior Bilateral Throughout] Pulse Rate [ 83 Apical] Respiratory 18 20 21 Rate Respiratory Rate [Anterior Bilateral Throughout] Blood Pressure 77/43 86/56 86/56 O2 Sat by Pulse 93 100 100 Oximetry 09/02/17 09/03/17 09/03/17 23:59 00:00 00:15 Temperature Pulse Rate 84 84 84 Pulse Rate [ Anterior Bilateral Throughout] Pulse Rate [ Apical] Respiratory 16 20 Rate Respiratory Rate [Anterior Bilateral Throughout] Blood Pressure 95/65 87/62 87/62 O2 Sat by Pulse 100 100 Oximetry 09/03/17 09/03/17 09/03/17 00:31 00:45 01:00 Temperature Pulse Rate 87 88 85 Pulse Rate [ Anterior Bilateral Throughout] Pulse Rate [ Apical] Respiratory 22 16 20 Rate Respiratory Rate [Anterior Bilateral Throughout] Blood Pressure 95/63 109/64 123/50 O2 Sat by Pulse 100 Oximetry 09/03/17 09/03/17 09/03/17 01:15 01:31 01:45 Temperature Pulse Rate 86 82 85 Pulse Rate [ 83 Anterior Bilateral Throughout] Pulse Rate [ Apical] Respiratory 19 18 20 Rate Respiratory 20 Rate [Anterior Bilateral Throughout] Blood Pressure 107/56 109/64 107/54 O2 Sat by Pulse 97 100 98 Oximetry 09/03/17 09/03/17 09/03/17 01:56 02:00 02:15 Temperature Pulse Rate 87 92 H Pulse Rate [ 84 Anterior Bilateral Throughout] Pulse Rate [ Apical] Respiratory 13 19 Rate Respiratory 23 Rate [Anterior Bilateral Throughout] Blood Pressure 97/67 97/67 O2 Sat by Pulse 100 99 Oximetry 09/03/17 09/03/17 09/03/17 02:31 02:45 03:00 Temperature Pulse Rate 83 81 82 Pulse Rate [ Anterior Bilateral Throughout] Pulse Rate [ Apical] Respiratory 20 20 20 Rate Respiratory Rate [Anterior Bilateral Throughout] Blood Pressure 134/58 122/63 128/56 O2 Sat by Pulse 100 100 94 Oximetry 09/03/17 09/03/17 09/03/17 03:15 03:23 03:30 Temperature 99 F Pulse Rate 87 83 Pulse Rate [ Anterior Bilateral Throughout] Pulse Rate [ Apical] Respiratory 18 21 Rate Respiratory Rate [Anterior Bilateral Throughout] Blood Pressure 98/59 90/61 O2 Sat by Pulse 92 94 Oximetry 09/03/17 09/03/17 09/03/17 03:45 04:01 04:14 Temperature Pulse Rate 84 84 80 Pulse Rate [ Anterior Bilateral Throughout] Pulse Rate [ Apical] Respiratory 13 18 Rate Respiratory Rate [Anterior Bilateral Throughout] Blood Pressure 100/70 100/68 138/61 O2 Sat by Pulse 70 L 100 100 Oximetry 09/03/17 09/03/17 09/03/17 04:15 04:20 04:30 Temperature Pulse Rate 78 79 Pulse Rate [ Anterior Bilateral Throughout] Pulse Rate [ Apical] Respiratory 17 24 20 Rate Respiratory Rate [Anterior Bilateral Throughout] Blood Pressure 100/68 100/64 O2 Sat by Pulse 100 98 100 Oximetry 09/03/17 09/03/17 09/03/17 04:45 05:01 05:15 Temperature Pulse Rate 84 82 80 Pulse Rate [ Anterior Bilateral Throughout] Pulse Rate [ Apical] Respiratory 19 19 20 Rate Respiratory Rate [Anterior Bilateral Throughout] Blood Pressure 100/64 100/64 100/64 O2 Sat by Pulse 100 100 100 Oximetry 09/03/17 09/03/17 09/03/17 05:31 05:45 06:00 Temperature Pulse Rate 81 79 78 Pulse Rate [ Anterior Bilateral Throughout] Pulse Rate [ Apical] Respiratory 19 17 20 Rate Respiratory Rate [Anterior Bilateral Throughout] Blood Pressure 119/57 128/59 144/70 O2 Sat by Pulse 100 100 100 Oximetry 09/03/17 09/03/17 09/03/17 06:15 06:31 06:45 Temperature Pulse Rate 84 84 86 Pulse Rate [ Anterior Bilateral Throughout] Pulse Rate [ Apical] Respiratory 20 15 18 Rate Respiratory Rate [Anterior Bilateral Throughout] Blood Pressure 144/70 129/65 129/65 O2 Sat by Pulse 100 100 100 Oximetry 09/03/17 07:01 Temperature Pulse Rate 83 Pulse Rate [ Anterior Bilateral Throughout] Pulse Rate [ Apical] Respiratory 20 Rate Respiratory Rate [Anterior Bilateral Throughout] Blood Pressure 108/31 O2 Sat by Pulse 100 Oximetry Constitutional: other (critically ill on vent, obese) Eyes: non-icteric ENT: oropharynx moist, other (NGT) Neck: supple, no lymphadenopathy Effort: mildly labored Ascultation: Bilateral: diminished breath sounds, rhonchi (occ) Cardiovascular: regular rate and rhythm Gastrointestinal: absent bowel sounds, non-tender, other (abdominal incision with new dressing noted, obese) Integumentary: normal Extremities: no cyanosis, pink and warm, edema (3+ bilateral LE edema) Neurologic: non-focal exam, pupils equal and round, other (somnolent) Psychiatric: mood appropriate, affect normal CBC and BMP: 09/03/17 05:00 09/03/17 04:00 ABG, PT/INR, D-dimer: ABG POC ABG pH 7.335 (7.35-7.45) L 08/30/17 03:31 ABG pH 7.407 pH Units (7.350-7.450) 09/03/17 Unknown POC ABG pCO2 44.1 (35-45) 08/30/17 03:31 ABG pCO2 41.2 mm Hg 09/03/17 Unknown POC ABG pO2 117 (80-105) H 08/30/17 03:31 ABG pO2 133.4 mm Hg (80.0-90.0) H 09/03/17 Unknown POC ABG HCO3 23.5 08/30/17 03:31 POC ABG Total CO2 25 08/30/17 03:31 POC ABG O2 Sat 98 08/30/17 03:31 ABG O2 Saturation 98.6 % (95.0-99.0) 09/03/17 Unknown PT/INR, D-dimer PT 15.1 Sec. (12.2-14.9) H 08/31/17 18:15 INR 1.13 (0.87-1.13) 08/31/17 18:15 Abnormal lab findings: Abnormal Labs 08/08/17 08/08/17 08/09/17 21:23 21:31 11:19 WBC 15.7 H RBC 2.93 L Hgb 8.7 L Hct 26.8 L MCV MCH RDW 19.2 H Plt Count Lymph % (Auto) [place] % (Auto) [place] # Seg Neutrophils % Seg Neuts % (Manual) Lymphocytes % (Manual) Monocytes % (Manual) Nucleated RBC % Seg Neutrophils # Seg Neutrophils # Man Lymphocytes # (Manual) Monocytes # (Manual) Eosinophils # (Manual) Basophils # (Manual) PT INR POC ABG pH 7.490 H ABG pH POC ABG pCO2 POC ABG pO2 122 H ABG pO2 ABG Base Excess ABG Hemoglobin Sodium Potassium Chloride Carbon Dioxide BUN Creatinine Glucose POC Glucose Calcium Phosphorus Magnesium AST ALT Alkaline Phosphatase Troponin T 0.133 H* C-Reactive Protein Total Protein Albumin Triglycerides HDL Cholesterol 26 L Miscellaneous Test Crossmatch 08/09/17 08/10/17 08/10/17 13:25 04:45 04:45 WBC 15.5 H RBC 2.97 L Hgb 8.9 L Hct 27.0 L MCV MCH RDW 19.2 H Plt Count Lymph % (Auto) [place] % (Auto) [place] # Seg Neutrophils % Seg Neuts % (Manual) 73.0 H Lymphocytes % (Manual) 7.0 L Monocytes % (Manual) 14.0 H Nucleated RBC % Seg Neutrophils # Seg Neutrophils # Man 11.3 H Lymphocytes # (Manual) 1.1 L Monocytes # (Manual) 2.2 H Eosinophils # (Manual) Basophils # (Manual) 0.2 H PT INR POC ABG pH ABG pH POC ABG pCO2 POC ABG pO2 ABG pO2 ABG Base Excess ABG Hemoglobin Sodium Potassium 3.3 L Chloride 97.3 L Carbon Dioxide 21 L BUN 23 H Creatinine 6.5 H Glucose POC Glucose Calcium 7.3 L Phosphorus Magnesium AST ALT Alkaline Phosphatase 138 H Troponin T 0.132 H* C-Reactive Protein Total Protein 4.8 L Albumin 1.4 L Triglycerides HDL Cholesterol Miscellaneous Test Crossmatch 08/11/17 08/11/17 08/12/17 04:00 04:00 05:50 WBC 19.3 H RBC 3.10 L Hgb 9.5 L Hct 28.2 L MCV MCH RDW 19.2 H Plt Count 463 H Lymph % (Auto) 7.5 L [place] % (Auto) 14.6 H Churchill # 2.8 H Seg Neutrophils % 77.0 H Seg Neuts % (Manual) Lymphocytes % (Manual) Monocytes % (Manual) Nucleated RBC % Seg Neutrophils # 14.8 H Seg Neutrophils # Man Lymphocytes # (Manual) Monocytes # (Manual) Eosinophils # (Manual) Basophils # (Manual) PT INR POC ABG pH ABG pH POC ABG pCO2 POC ABG pO2 ABG pO2 ABG Base Excess ABG Hemoglobin Sodium 136 L 136 L Potassium 3.3 L Chloride 96.3 L 96.6 L Carbon Dioxide BUN 26 H 26 H Creatinine 6.4 H 6.2 H Glucose 135 H 133 H POC Glucose Calcium 8.2 L Phosphorus Magnesium 1.30 L AST ALT Alkaline Phosphatase 139 H Troponin T C-Reactive Protein Total Protein 5.5 L Albumin 1.7 L Triglycerides HDL Cholesterol Miscellaneous Test Crossmatch 08/12/17 08/12/17 08/12/17 05:50 05:50 05:50 WBC 20.1 H RBC 3.06 L Hgb 9.3 L Hct 27.9 L MCV MCH RDW 18.4 H Plt Count 471 H Lymph % (Auto) [place] % (Auto) [place] # Seg Neutrophils % Seg Neuts % (Manual) 85.0 H Lymphocytes % (Manual) 8.0 L Monocytes % (Manual) Nucleated RBC % Seg Neutrophils # Seg Neutrophils # Man 17.1 H Lymphocytes # (Manual) Monocytes # (Manual) 1.0 H Eosinophils # (Manual) Basophils # (Manual) PT 15.2 H INR 1.14 H POC ABG pH ABG pH POC ABG pCO2 POC ABG pO2 ABG pO2 ABG Base Excess ABG Hemoglobin Sodium Potassium Chloride Carbon Dioxide BUN Creatinine Glucose POC Glucose Calcium Phosphorus Magnesium AST ALT Alkaline Phosphatase Troponin T C-Reactive Protein 28.90 H Total Protein Albumin Triglycerides HDL Cholesterol Miscellaneous Test Crossmatch 08/12/17 08/13/17 08/13/17 16:23 06:14 06:14 WBC 21.8 H RBC 3.11 L Hgb 9.4 L Hct 28.2 L MCV MCH RDW 18.2 H Plt Count 492 H Lymph % (Auto) [place] % (Auto) [place] # Seg Neutrophils % Seg Neuts % (Manual) 73.0 H Lymphocytes % (Manual) 2.0 L Monocytes % (Manual) 15 H Nucleated RBC % Seg Neutrophils # Seg Neutrophils # Man 15.9 H Lymphocytes # (Manual) 0.4 L Monocytes # (Manual) 2.4 H Eosinophils # (Manual) Basophils # (Manual) PT INR POC ABG pH ABG pH POC ABG pCO2 POC ABG pO2 ABG pO2 ABG Base Excess ABG Hemoglobin Sodium Potassium Chloride 96.2 L Carbon Dioxide BUN 28 H Creatinine 5.6 H Glucose 114 H POC Glucose Calcium Phosphorus Magnesium AST ALT Alkaline Phosphatase Troponin T C-Reactive Protein 26.10 H Total Protein Albumin Triglycerides HDL Cholesterol Miscellaneous Test Crossmatch 08/13/17 08/14/17 08/14/17 16:39 04:00 04:00 WBC 22.1 H RBC 3.25 L Hgb 9.9 L Hct 29.5 L MCV MCH RDW 17.9 H Plt Count 525 H Lymph % (Auto) [place] % (Auto) [place] # Seg Neutrophils % Seg Neuts % (Manual) 74.0 H Lymphocytes % (Manual) 8.0 L Monocytes % (Manual) 12.0 H Nucleated RBC % Seg Neutrophils # Seg Neutrophils # Man 16.4 H Lymphocytes # (Manual) Monocytes # (Manual) 2.7 H Eosinophils # (Manual) Basophils # (Manual) PT INR POC ABG pH ABG pH POC ABG pCO2 POC ABG pO2 ABG pO2 ABG Base Excess ABG Hemoglobin Sodium 134 L Potassium 3.3 L Chloride 93.3 L Carbon Dioxide BUN 27 H Creatinine 6.0 H Glucose 152 H POC Glucose 151 H Calcium Phosphorus Magnesium AST ALT Alkaline Phosphatase Troponin T C-Reactive Protein Total Protein Albumin Triglycerides HDL Cholesterol Miscellaneous Test Crossmatch 08/15/17 08/16/17 08/16/17 09:10 09:50 09:50 WBC 31.1 H RBC 3.21 L Hgb 9.6 L Hct 29.3 L MCV MCH RDW 18.1 H Plt Count 642 H Lymph % (Auto) [place] % (Auto) [place] # Seg Neutrophils % Seg Neuts % (Manual) 74.0 H Lymphocytes % (Manual) 4.0 L Monocytes % (Manual) 9.0 H Nucleated RBC % Seg Neutrophils # Seg Neutrophils # Man 23.0 H Lymphocytes # (Manual) Monocytes # (Manual) 2.8 H Eosinophils # (Manual) Basophils # (Manual) PT INR POC ABG pH ABG pH POC ABG pCO2 POC ABG pO2 ABG pO2 ABG Base Excess ABG Hemoglobin Sodium 136 L 136 L Potassium 3.5 L Chloride 97.6 L 94.9 L Carbon Dioxide BUN 27 H 28 H Creatinine 5.6 H 5.5 H Glucose 117 H 103 H POC Glucose Calcium Phosphorus Magnesium AST ALT Alkaline Phosphatase 137 H Troponin T C-Reactive Protein Total Protein 5.4 L Albumin 1.5 L Triglycerides HDL Cholesterol Miscellaneous Test Crossmatch 08/16/17 08/17/17 08/17/17 09:50 05:00 06:26 WBC RBC Hgb Hct MCV MCH RDW Plt Count Lymph % (Auto) [place] % (Auto) [place] # Seg Neutrophils % Seg Neuts % (Manual) Lymphocytes % (Manual) Monocytes % (Manual) Nucleated RBC % Seg Neutrophils # Seg Neutrophils # Man Lymphocytes # (Manual) Monocytes # (Manual) Eosinophils # (Manual) Basophils # (Manual) PT INR POC ABG pH ABG pH POC ABG pCO2 POC ABG pO2 ABG pO2 ABG Base Excess ABG Hemoglobin Sodium 134 L Potassium 3.0 L Chloride 97.8 L Carbon Dioxide BUN 30 H Creatinine 5.3 H Glucose 147 H POC Glucose 165 H Calcium 7.5 L Phosphorus Magnesium AST ALT Alkaline Phosphatase Troponin T C-Reactive Protein 32.30 H Total Protein Albumin Triglycerides HDL Cholesterol Miscellaneous Test Crossmatch 08/17/17 08/17/17 08/17/17 10:56 11:20 11:20 WBC 39.1 H RBC 3.10 L Hgb 9.2 L Hct 28.6 L MCV MCH RDW 18.3 H Plt Count 580 H Lymph % (Auto) [place] % (Auto) [place] # Seg Neutrophils % Seg Neuts % (Manual) 89.5 H Lymphocytes % (Manual) 3.5 L Monocytes % (Manual) Nucleated RBC % Seg Neutrophils # Seg Neutrophils # Man 35.0 H Lymphocytes # (Manual) Monocytes # (Manual) 2.5 H Eosinophils # (Manual) Basophils # (Manual) 0.2 H PT INR POC ABG pH 7.464 H ABG pH POC ABG pCO2 34.1 L POC ABG pO2 75 L ABG pO2 ABG Base Excess ABG Hemoglobin Sodium Potassium Chloride Carbon Dioxide BUN Creatinine Glucose POC Glucose Calcium Phosphorus Magnesium AST ALT Alkaline Phosphatase Troponin T C-Reactive Protein Total Protein Albumin Triglycerides HDL Cholesterol Miscellaneous Test Flexitest 1 H Crossmatch 08/17/17 08/17/17 08/17/17 11:20 16:57 20:20 WBC 34.4 H RBC 2.81 L Hgb 8.4 L Hct 26.0 L MCV MCH RDW 17.8 H Plt Count 455 H Lymph % (Auto) [place] % (Auto) [place] # Seg Neutrophils % Seg Neuts % (Manual) Lymphocytes % (Manual) 3.5 L Monocytes % (Manual) Nucleated RBC % 5.0 H Seg Neutrophils # Seg Neutrophils # Man 16.5 H Lymphocytes # (Manual) Monocytes # (Manual) 1.0 H Eosinophils # (Manual) Basophils # (Manual) PT 16.0 H INR 1.29 H POC ABG pH ABG pH POC ABG pCO2 POC ABG pO2 ABG pO2 ABG Base Excess ABG Hemoglobin Sodium 135 L Potassium 2.9 L* Chloride Carbon Dioxide 20 L BUN 32 H Creatinine 5.4 H Glucose 129 H POC Glucose Calcium 7.5 L Phosphorus Magnesium 1.50 L AST 85 H ALT Alkaline Phosphatase Troponin T C-Reactive Protein Total Protein 4.0 L D Albumin 1.6 L Triglycerides HDL Cholesterol Miscellaneous Test Crossmatch 08/17/17 08/17/17 08/18/17 20:54 23:47 04:26 WBC RBC Hgb Hct MCV MCH RDW Plt Count Lymph % (Auto) [place] % (Auto) [place] # Seg Neutrophils % Seg Neuts % (Manual) Lymphocytes % (Manual) Monocytes % (Manual) Nucleated RBC % Seg Neutrophils # Seg Neutrophils # Man Lymphocytes # (Manual) Monocytes # (Manual) Eosinophils # (Manual) Basophils # (Manual) PT INR POC ABG pH 7.557 H ABG pH POC ABG pCO2 23.1 L 29.0 L POC ABG pO2 187 H 148 H ABG pO2 ABG Base Excess ABG Hemoglobin Sodium Potassium Chloride Carbon Dioxide BUN Creatinine Glucose POC Glucose 188 H Calcium Phosphorus Magnesium AST ALT Alkaline Phosphatase Troponin T C-Reactive Protein Total Protein Albumin Triglycerides HDL Cholesterol Miscellaneous Test Crossmatch 08/18/17 08/18/17 08/18/17 05:51 11:44 17:07 WBC RBC Hgb Hct MCV MCH RDW Plt Count Lymph % (Auto) [place] % (Auto) [place] # Seg Neutrophils % Seg Neuts % (Manual) Lymphocytes % (Manual) Monocytes % (Manual) Nucleated RBC % Seg Neutrophils # Seg Neutrophils # Man Lymphocytes # (Manual) Monocytes # (Manual) Eosinophils # (Manual) Basophils # (Manual) PT INR POC ABG pH ABG pH POC ABG pCO2 POC ABG pO2 ABG pO2 ABG Base Excess ABG Hemoglobin Sodium Potassium Chloride Carbon Dioxide BUN Creatinine Glucose POC Glucose 202 H 195 H 182 H Calcium Phosphorus Magnesium AST ALT Alkaline Phosphatase Troponin T C-Reactive Protein Total Protein Albumin Triglycerides HDL Cholesterol Miscellaneous Test Crossmatch 08/18/17 08/18/17 08/18/17 23:45 Unknown Unknown WBC 39.0 H RBC 2.84 L Hgb 8.4 L Hct 26.5 L MCV MCH RDW 18.0 H Plt Count 476 H Lymph % (Auto) [place] % (Auto) [place] # Seg Neutrophils % Seg Neuts % (Manual) Lymphocytes % (Manual) 7.0 L Monocytes % (Manual) 10.0 H Nucleated RBC % 3.0 H Seg Neutrophils # Seg Neutrophils # Man 15.6 H Lymphocytes # (Manual) Monocytes # (Manual) 3.9 H Eosinophils # (Manual) Basophils # (Manual) PT INR POC ABG pH ABG pH POC ABG pCO2 POC ABG pO2 ABG pO2 ABG Base Excess ABG Hemoglobin Sodium Potassium Chloride Carbon Dioxide 19 L BUN 34 H Creatinine 5.6 H Glucose 201 H POC Glucose 163 H Calcium 7.8 L Phosphorus 1.90 L D Magnesium 1.60 L AST ALT Alkaline Phosphatase Troponin T C-Reactive Protein Total Protein Albumin Triglycerides HDL Cholesterol Miscellaneous Test Crossmatch 08/19/17 08/19/17 08/19/17 04:18 05:00 05:00 WBC 40.0 H RBC 2.46 L Hgb 7.3 L Hct 22.6 L MCV MCH RDW 18.1 H Plt Count Lymph % (Auto) [place] % (Auto) [place] # Seg Neutrophils % Seg Neuts % (Manual) Lymphocytes % (Manual) 8.0 L Monocytes % (Manual) Nucleated RBC % 2.0 H Seg Neutrophils # Seg Neutrophils # Man 16.4 H Lymphocytes # (Manual) Monocytes # (Manual) 1.2 H Eosinophils # (Manual) 1.2 H Basophils # (Manual) PT INR POC ABG pH 7.463 H ABG pH POC ABG pCO2 29.7 L POC ABG pO2 134 H ABG pO2 ABG Base Excess ABG Hemoglobin Sodium Potassium 5.1 H D Chloride Carbon Dioxide 20 L BUN 40 H Creatinine 5.3 H Glucose 128 H POC Glucose Calcium 7.8 L Phosphorus 1.90 L Magnesium AST ALT Alkaline Phosphatase Troponin T C-Reactive Protein Total Protein Albumin Triglycerides HDL Cholesterol Miscellaneous Test Crossmatch 08/19/17 08/19/17 08/19/17 05:19 07:37 09:52 WBC 45.0 H* RBC 2.50 L Hgb 7.5 L Hct 24.5 L MCV 98 H MCH RDW 18.4 H Plt Count Lymph % (Auto) [place] % (Auto) [place] # Seg Neutrophils % Seg Neuts % (Manual) 81.5 H Lymphocytes % (Manual) 4.0 L Monocytes % (Manual) Nucleated RBC % 1.0 H Seg Neutrophils # Seg Neutrophils # Man 36.7 H Lymphocytes # (Manual) Monocytes # (Manual) Eosinophils # (Manual) Basophils # (Manual) PT INR POC ABG pH ABG pH POC ABG pCO2 POC ABG pO2 ABG pO2 ABG Base Excess ABG Hemoglobin Sodium Potassium Chloride Carbon Dioxide BUN Creatinine Glucose POC Glucose 142 H Calcium Phosphorus Magnesium AST ALT Alkaline Phosphatase Troponin T C-Reactive Protein 34.20 H Total Protein Albumin Triglycerides HDL Cholesterol Miscellaneous Test Crossmatch 08/19/17 08/19/17 08/20/17 11:16 18:12 00:35 WBC RBC Hgb Hct MCV MCH RDW Plt Count Lymph % (Auto) [place] % (Auto) [place] # Seg Neutrophils % Seg Neuts % (Manual) Lymphocytes % (Manual) Monocytes % (Manual) Nucleated RBC % Seg Neutrophils # Seg Neutrophils # Man Lymphocytes # (Manual) Monocytes # (Manual) Eosinophils # (Manual) Basophils # (Manual) PT INR POC ABG pH ABG pH POC ABG pCO2 POC ABG pO2 ABG pO2 ABG Base Excess ABG Hemoglobin Sodium Potassium Chloride Carbon Dioxide BUN Creatinine Glucose POC Glucose 143 H 137 H 164 H Calcium Phosphorus Magnesium AST ALT Alkaline Phosphatase Troponin T C-Reactive Protein Total Protein Albumin Triglycerides HDL Cholesterol Miscellaneous Test Crossmatch 08/20/17 08/20/17 08/20/17 03:20 03:20 04:00 WBC 48.0 H* RBC 2.55 L Hgb 7.6 L Hct 23.4 L MCV MCH RDW 18.4 H Plt Count Lymph % (Auto) [place] % (Auto) [place] # Seg Neutrophils % Seg Neuts % (Manual) 90.0 H Lymphocytes % (Manual) 3.0 L Monocytes % (Manual) Nucleated RBC % Seg Neutrophils # Seg Neutrophils # Man 43.2 H Lymphocytes # (Manual) Monocytes # (Manual) 1.4 H Eosinophils # (Manual) 0.5 H Basophils # (Manual) PT INR POC ABG pH 7.499 H ABG pH POC ABG pCO2 29.1 L POC ABG pO2 ABG pO2 ABG Base Excess ABG Hemoglobin Sodium 135 L Potassium Chloride Carbon Dioxide BUN 28 H Creatinine 4.0 H Glucose 140 H POC Glucose Calcium 8.0 L Phosphorus 1.70 L Magnesium 1.60 L AST ALT Alkaline Phosphatase Troponin T C-Reactive Protein Total Protein Albumin Triglycerides HDL Cholesterol Miscellaneous Test Crossmatch 08/20/17 08/20/17 08/20/17 05:02 12:05 13:12 WBC RBC Hgb Hct MCV MCH RDW Plt Count Lymph % (Auto) [place] % (Auto) [place] # Seg Neutrophils % Seg Neuts % (Manual) Lymphocytes % (Manual) Monocytes % (Manual) Nucleated RBC % Seg Neutrophils # Seg Neutrophils # Man Lymphocytes # (Manual) Monocytes # (Manual) Eosinophils # (Manual) Basophils # (Manual) PT INR POC ABG pH 7.537 H ABG pH POC ABG pCO2 27.9 L POC ABG pO2 79 L ABG pO2 ABG Base Excess ABG Hemoglobin Sodium Potassium Chloride Carbon Dioxide BUN Creatinine Glucose POC Glucose 158 H 203 H Calcium Phosphorus Magnesium AST ALT Alkaline Phosphatase Troponin T C-Reactive Protein Total Protein Albumin Triglycerides HDL Cholesterol Miscellaneous Test Crossmatch 08/20/17 08/21/17 08/21/17 17:13 00:47 03:14 WBC RBC Hgb Hct MCV MCH RDW Plt Count Lymph % (Auto) [place] % (Auto) [place] # Seg Neutrophils % Seg Neuts % (Manual) Lymphocytes % (Manual) Monocytes % (Manual) Nucleated RBC % Seg Neutrophils # Seg Neutrophils # Man Lymphocytes # (Manual) Monocytes # (Manual) Eosinophils # (Manual) Basophils # (Manual) PT INR POC ABG pH 7.481 H ABG pH POC ABG pCO2 29.6 L POC ABG pO2 ABG pO2 ABG Base Excess ABG Hemoglobin Sodium Potassium Chloride Carbon Dioxide BUN Creatinine Glucose POC Glucose 188 H 109 H Calcium Phosphorus Magnesium AST ALT Alkaline Phosphatase Troponin T C-Reactive Protein Total Protein Albumin Triglycerides HDL Cholesterol Miscellaneous Test Crossmatch 08/21/17 08/21/17 08/21/17 05:05 06:50 06:50 WBC 44.7 H* RBC 2.41 L Hgb 7.1 L Hct 22.1 L MCV MCH RDW 18.3 H Plt Count Lymph % (Auto) [place] % (Auto) [place] # Seg Neutrophils % Seg Neuts % (Manual) 89.0 H Lymphocytes % (Manual) 0 L Monocytes % (Manual) Nucleated RBC % 1.0 H Seg Neutrophils # Seg Neutrophils # Man 39.8 H Lymphocytes # (Manual) 0.0 L Monocytes # (Manual) 1.3 H Eosinophils # (Manual) Basophils # (Manual) PT INR POC ABG pH ABG pH POC ABG pCO2 POC ABG pO2 ABG pO2 ABG Base Excess ABG Hemoglobin Sodium 135 L Potassium Chloride Carbon Dioxide BUN 39 H Creatinine 4.4 H Glucose 147 H POC Glucose 166 H Calcium 8.1 L Phosphorus Magnesium AST ALT < 5 L Alkaline Phosphatase 164 H Troponin T C-Reactive Protein Total Protein 4.7 L Albumin 1.4 L Triglycerides HDL Cholesterol Miscellaneous Test Crossmatch 08/21/17 08/21/17 08/21/17 08:00 12:21 17:02 WBC RBC Hgb Hct MCV MCH RDW Plt Count Lymph % (Auto) [place] % (Auto) [place] # Seg Neutrophils % Seg Neuts % (Manual) Lymphocytes % (Manual) Monocytes % (Manual) Nucleated RBC % Seg Neutrophils # Seg Neutrophils # Man Lymphocytes # (Manual) Monocytes # (Manual) Eosinophils # (Manual) Basophils # (Manual) PT INR POC ABG pH ABG pH POC ABG pCO2 POC ABG pO2 ABG pO2 ABG Base Excess ABG Hemoglobin Sodium Potassium Chloride Carbon Dioxide BUN Creatinine Glucose POC Glucose 147 H 135 H Calcium Phosphorus Magnesium AST ALT Alkaline Phosphatase Troponin T C-Reactive Protein Total Protein Albumin Triglycerides HDL Cholesterol Miscellaneous Test Crossmatch See Detail 08/21/17 08/22/17 08/22/17 23:38 03:40 03:40 WBC 42.5 H* RBC 2.88 L Hgb 8.5 L Hct 26.3 L MCV MCH RDW 17.9 H Plt Count Lymph % (Auto) [place] % (Auto) [place] # Seg Neutrophils % Seg Neuts % (Manual) Lymphocytes % (Manual) 5.0 L Monocytes % (Manual) Nucleated RBC % Seg Neutrophils # Seg Neutrophils # Man 19.6 H Lymphocytes # (Manual) Monocytes # (Manual) 2.6 H Eosinophils # (Manual) Basophils # (Manual) PT INR POC ABG pH ABG pH POC ABG pCO2 POC ABG pO2 ABG pO2 ABG Base Excess ABG Hemoglobin Sodium Potassium 3.3 L D Chloride Carbon Dioxide BUN 27 H Creatinine 2.9 H Glucose 144 H POC Glucose 251 H Calcium 8.0 L Phosphorus 2.40 L Magnesium AST ALT Alkaline Phosphatase Troponin T C-Reactive Protein Total Protein Albumin Triglycerides HDL Cholesterol Miscellaneous Test Crossmatch 08/22/17 08/22/17 08/22/17 06:37 08:50 11:25 WBC RBC Hgb Hct MCV MCH RDW Plt Count Lymph % (Auto) [place] % (Auto) [place] # Seg Neutrophils % Seg Neuts % (Manual) Lymphocytes % (Manual) Monocytes % (Manual) Nucleated RBC % Seg Neutrophils # Seg Neutrophils # Man Lymphocytes # (Manual) Monocytes # (Manual) Eosinophils # (Manual) Basophils # (Manual) PT INR POC ABG pH ABG pH POC ABG pCO2 POC ABG pO2 ABG pO2 ABG Base Excess ABG Hemoglobin Sodium Potassium Chloride Carbon Dioxide BUN Creatinine Glucose POC Glucose 152 H 175 H Calcium Phosphorus Magnesium AST ALT Alkaline Phosphatase Troponin T C-Reactive Protein Total Protein Albumin Triglycerides HDL Cholesterol Miscellaneous Test Flexitest 1 H Crossmatch 08/22/17 08/22/17 08/22/17 16:25 17:56 23:03 WBC RBC Hgb Hct MCV MCH RDW Plt Count Lymph % (Auto) [place] % (Auto) [place] # Seg Neutrophils % Seg Neuts % (Manual) Lymphocytes % (Manual) Monocytes % (Manual) Nucleated RBC % Seg Neutrophils # Seg Neutrophils # Man Lymphocytes # (Manual) Monocytes # (Manual) Eosinophils # (Manual) Basophils # (Manual) PT INR POC ABG pH ABG pH POC ABG pCO2 POC ABG pO2 ABG pO2 ABG Base Excess ABG Hemoglobin Sodium Potassium Chloride Carbon Dioxide BUN Creatinine Glucose POC Glucose 232 H 192 H Calcium Phosphorus Magnesium AST ALT Alkaline Phosphatase Troponin T C-Reactive Protein 30.70 H Total Protein Albumin Triglycerides HDL Cholesterol Miscellaneous Test Crossmatch 08/23/17 08/23/17 08/23/17 05:36 08:50 12:14 WBC RBC Hgb Hct MCV MCH RDW Plt Count Lymph % (Auto) [place] % (Auto) [place] # Seg Neutrophils % Seg Neuts % (Manual) Lymphocytes % (Manual) Monocytes % (Manual) Nucleated RBC % Seg Neutrophils # Seg Neutrophils # Man Lymphocytes # (Manual) Monocytes # (Manual) Eosinophils # (Manual) Basophils # (Manual) PT INR POC ABG pH ABG pH POC ABG pCO2 POC ABG pO2 ABG pO2 ABG Base Excess ABG Hemoglobin Sodium Potassium Chloride 107.1 H Carbon Dioxide BUN 49 H Creatinine 3.3 H Glucose 172 H POC Glucose 206 H 238 H Calcium Phosphorus Magnesium 2.40 H AST ALT Alkaline Phosphatase Troponin T C-Reactive Protein Total Protein Albumin Triglycerides HDL Cholesterol Miscellaneous Test Crossmatch 08/23/17 08/23/17 08/24/17 17:21 23:13 04:00 WBC 34.2 H RBC 2.86 L Hgb 8.4 L Hct 25.9 L MCV MCH RDW 17.9 H Plt Count Lymph % (Auto) [place] % (Auto) [place] # Seg Neutrophils % Seg Neuts % (Manual) 85.0 H Lymphocytes % (Manual) 0.5 L Monocytes % (Manual) Nucleated RBC % 1.0 H Seg Neutrophils # Seg Neutrophils # Man 29.1 H Lymphocytes # (Manual) 0.2 L Monocytes # (Manual) 2.4 H Eosinophils # (Manual) Basophils # (Manual) PT INR POC ABG pH ABG pH POC ABG pCO2 POC ABG pO2 ABG pO2 ABG Base Excess ABG Hemoglobin Sodium Potassium Chloride Carbon Dioxide BUN Creatinine Glucose POC Glucose 226 H 183 H Calcium Phosphorus Magnesium AST ALT Alkaline Phosphatase Troponin T C-Reactive Protein Total Protein Albumin Triglycerides HDL Cholesterol Miscellaneous Test Crossmatch 08/24/17 08/24/17 08/24/17 05:06 09:30 12:04 WBC RBC Hgb Hct MCV MCH RDW Plt Count Lymph % (Auto) [place] % (Auto) [place] # Seg Neutrophils % Seg Neuts % (Manual) Lymphocytes % (Manual) Monocytes % (Manual) Nucleated RBC % Seg Neutrophils # Seg Neutrophils # Man Lymphocytes # (Manual) Monocytes # (Manual) Eosinophils # (Manual) Basophils # (Manual) PT INR POC ABG pH ABG pH POC ABG pCO2 POC ABG pO2 ABG pO2 ABG Base Excess ABG Hemoglobin Sodium Potassium Chloride Carbon Dioxide BUN 46 H Creatinine 2.5 H Glucose 176 H POC Glucose 201 H 181 H Calcium Phosphorus Magnesium AST ALT Alkaline Phosphatase Troponin T C-Reactive Protein Total Protein Albumin Triglycerides HDL Cholesterol Miscellaneous Test Crossmatch 08/24/17 08/24/17 08/25/17 18:04 23:05 05:05 WBC RBC Hgb Hct MCV MCH RDW Plt Count Lymph % (Auto) [place] % (Auto) [place] # Seg Neutrophils % Seg Neuts % (Manual) Lymphocytes % (Manual) Monocytes % (Manual) Nucleated RBC % Seg Neutrophils # Seg Neutrophils # Man Lymphocytes # (Manual) Monocytes # (Manual) Eosinophils # (Manual) Basophils # (Manual) PT INR POC ABG pH ABG pH POC ABG pCO2 POC ABG pO2 ABG pO2 ABG Base Excess ABG Hemoglobin Sodium Potassium Chloride Carbon Dioxide BUN Creatinine Glucose POC Glucose 189 H 175 H 190 H Calcium Phosphorus Magnesium AST ALT Alkaline Phosphatase Troponin T C-Reactive Protein Total Protein Albumin Triglycerides HDL Cholesterol Miscellaneous Test Crossmatch 08/25/17 08/25/17 08/26/17 07:02 11:53 05:30 WBC 33.5 H RBC 2.47 L Hgb 7.3 L Hct 23.0 L MCV MCH RDW 21.3 H Plt Count Lymph % (Auto) [place] % (Auto) [place] # Seg Neutrophils % Seg Neuts % (Manual) 92.0 H Lymphocytes % (Manual) 1.0 L Monocytes % (Manual) Nucleated RBC % Seg Neutrophils # Seg Neutrophils # Man 30.8 H Lymphocytes # (Manual) 0.3 L Monocytes # (Manual) Eosinophils # (Manual) Basophils # (Manual) PT INR POC ABG pH ABG pH POC ABG pCO2 POC ABG pO2 ABG pO2 ABG Base Excess ABG Hemoglobin Sodium Potassium Chloride Carbon Dioxide BUN 32 H Creatinine 5.0 H D Glucose 117 H POC Glucose 191 H Calcium 8.0 L Phosphorus Magnesium AST ALT Alkaline Phosphatase Troponin T C-Reactive Protein Total Protein Albumin Triglycerides HDL Cholesterol Miscellaneous Test Crossmatch 08/26/17 08/26/17 08/26/17 05:30 06:44 13:26 WBC RBC Hgb Hct MCV MCH RDW Plt Count Lymph % (Auto) [place] % (Auto) [place] # Seg Neutrophils % Seg Neuts % (Manual) Lymphocytes % (Manual) Monocytes % (Manual) Nucleated RBC % Seg Neutrophils # Seg Neutrophils # Man Lymphocytes # (Manual) Monocytes # (Manual) Eosinophils # (Manual) Basophils # (Manual) PT INR POC ABG pH ABG pH POC ABG pCO2 POC ABG pO2 ABG pO2 ABG Base Excess ABG Hemoglobin Sodium Potassium 5.2 H Chloride Carbon Dioxide BUN 80 H Creatinine 3.4 H Glucose 193 H POC Glucose 232 H 207 H Calcium 8.3 L Phosphorus 6.80 H D Magnesium 2.60 H AST 135 H ALT Alkaline Phosphatase 211 H Troponin T C-Reactive Protein Total Protein 4.8 L Albumin 2.0 L Triglycerides HDL Cholesterol Miscellaneous Test Crossmatch 08/27/17 08/27/17 08/27/17 01:08 06:20 06:20 WBC 35.0 H RBC 2.75 L Hgb 8.4 L Hct 25.1 L MCV MCH RDW 21.8 H Plt Count Lymph % (Auto) [place] % (Auto) [place] # Seg Neutrophils % Seg Neuts % (Manual) Lymphocytes % (Manual) 4.5 L Monocytes % (Manual) Nucleated RBC % Seg Neutrophils # Seg Neutrophils # Man 31.9 H Lymphocytes # (Manual) Monocytes # (Manual) 1.2 H Eosinophils # (Manual) Basophils # (Manual) PT INR POC ABG pH ABG pH POC ABG pCO2 POC ABG pO2 ABG pO2 ABG Base Excess ABG Hemoglobin Sodium Potassium Chloride Carbon Dioxide BUN 61 H Creatinine 2.6 H Glucose 184 H POC Glucose 146 H Calcium Phosphorus 4.90 H D Magnesium AST ALT Alkaline Phosphatase Troponin T C-Reactive Protein Total Protein Albumin Triglycerides HDL Cholesterol Miscellaneous Test Crossmatch 08/27/17 08/27/17 08/27/17 07:01 09:17 12:52 WBC RBC Hgb Hct MCV MCH RDW Plt Count Lymph % (Auto) [place] % (Auto) [place] # Seg Neutrophils % Seg Neuts % (Manual) Lymphocytes % (Manual) Monocytes % (Manual) Nucleated RBC % Seg Neutrophils # Seg Neutrophils # Man Lymphocytes # (Manual) Monocytes # (Manual) Eosinophils # (Manual) Basophils # (Manual) PT INR POC ABG pH ABG pH POC ABG pCO2 POC ABG pO2 ABG pO2 ABG Base Excess ABG Hemoglobin Sodium Potassium Chloride Carbon Dioxide BUN Creatinine Glucose POC Glucose 165 H 198 H 218 H Calcium Phosphorus Magnesium AST ALT Alkaline Phosphatase Troponin T C-Reactive Protein Total Protein Albumin Triglycerides HDL Cholesterol Miscellaneous Test Crossmatch 08/27/17 08/28/17 08/28/17 17:27 02:13 06:46 WBC RBC Hgb Hct MCV MCH RDW Plt Count Lymph % (Auto) [place] % (Auto) [place] # Seg Neutrophils % Seg Neuts % (Manual) Lymphocytes % (Manual) Monocytes % (Manual) Nucleated RBC % Seg Neutrophils # Seg Neutrophils # Man Lymphocytes # (Manual) Monocytes # (Manual) Eosinophils # (Manual) Basophils # (Manual) PT INR POC ABG pH ABG pH POC ABG pCO2 POC ABG pO2 ABG pO2 ABG Base Excess ABG Hemoglobin Sodium Potassium Chloride Carbon Dioxide BUN Creatinine Glucose POC Glucose 151 H 155 H 230 H Calcium Phosphorus Magnesium AST ALT Alkaline Phosphatase Troponin T C-Reactive Protein Total Protein Albumin Triglycerides HDL Cholesterol Miscellaneous Test Crossmatch 08/28/17 08/28/17 08/28/17 06:53 06:53 08:19 WBC 31.1 H RBC 2.26 L Hgb 6.8 L Hct 20.9 L MCV MCH RDW 21.7 H Plt Count Lymph % (Auto) [place] % (Auto) [place] # Seg Neutrophils % Seg Neuts % (Manual) 83.0 H Lymphocytes % (Manual) 4.0 L Monocytes % (Manual) Nucleated RBC % Seg Neutrophils # Seg Neutrophils # Man 25.8 H Lymphocytes # (Manual) Monocytes # (Manual) Eosinophils # (Manual) Basophils # (Manual) PT INR POC ABG pH ABG pH POC ABG pCO2 POC ABG pO2 ABG pO2 ABG Base Excess ABG Hemoglobin Sodium Potassium Chloride Carbon Dioxide BUN 81 H Creatinine 3.4 H Glucose 218 H POC Glucose 239 H Calcium Phosphorus 4.90 H Magnesium AST ALT Alkaline Phosphatase Troponin T C-Reactive Protein Total Protein Albumin Triglycerides HDL Cholesterol Miscellaneous Test Crossmatch 08/28/17 08/28/17 08/28/17 11:56 13:05 13:29 WBC RBC Hgb Hct MCV MCH RDW Plt Count Lymph % (Auto) [place] % (Auto) [place] # Seg Neutrophils % Seg Neuts % (Manual) Lymphocytes % (Manual) Monocytes % (Manual) Nucleated RBC % Seg Neutrophils # Seg Neutrophils # Man Lymphocytes # (Manual) Monocytes # (Manual) Eosinophils # (Manual) Basophils # (Manual) PT 16.7 H INR 1.29 H POC ABG pH ABG pH POC ABG pCO2 POC ABG pO2 338 H ABG pO2 ABG Base Excess ABG Hemoglobin Sodium Potassium Chloride Carbon Dioxide BUN Creatinine Glucose POC Glucose Calcium Phosphorus Magnesium AST ALT Alkaline Phosphatase Troponin T C-Reactive Protein Total Protein Albumin Triglycerides HDL Cholesterol Miscellaneous Test Crossmatch See Detail 08/28/17 08/28/17 08/29/17 16:22 19:20 04:24 WBC RBC Hgb Hct MCV MCH RDW Plt Count Lymph % (Auto) [place] % (Auto) [place] # Seg Neutrophils % Seg Neuts % (Manual) Lymphocytes % (Manual) Monocytes % (Manual) Nucleated RBC % Seg Neutrophils # Seg Neutrophils # Man Lymphocytes # (Manual) Monocytes # (Manual) Eosinophils # (Manual) Basophils # (Manual) PT INR POC ABG pH 7.469 H ABG pH POC ABG pCO2 POC ABG pO2 240 H ABG pO2 ABG Base Excess ABG Hemoglobin Sodium Potassium Chloride Carbon Dioxide BUN Creatinine Glucose POC Glucose 209 H 195 H Calcium Phosphorus Magnesium AST ALT Alkaline Phosphatase Troponin T C-Reactive Protein Total Protein Albumin Triglycerides HDL Cholesterol Miscellaneous Test Crossmatch 08/29/17 08/29/17 08/29/17 04:30 04:30 12:07 WBC 44.9 H* RBC Hgb Hct MCV MCH RDW 23.1 H Plt Count Lymph % (Auto) [place] % (Auto) [place] # Seg Neutrophils % Seg Neuts % (Manual) 38.0 L Lymphocytes % (Manual) 10.0 L Monocytes % (Manual) 10.0 H Nucleated RBC % 6.0 H Seg Neutrophils # Seg Neutrophils # Man 17.1 H Lymphocytes # (Manual) Monocytes # (Manual) 4.5 H Eosinophils # (Manual) Basophils # (Manual) PT INR POC ABG pH ABG pH POC ABG pCO2 POC ABG pO2 ABG pO2 ABG Base Excess ABG Hemoglobin Sodium Potassium Chloride Carbon Dioxide BUN 61 H Creatinine 2.4 H Glucose 226 H POC Glucose 200 H Calcium Phosphorus Magnesium AST ALT Alkaline Phosphatase Troponin T C-Reactive Protein Total Protein Albumin Triglycerides HDL Cholesterol Miscellaneous Test Crossmatch 08/29/17 08/29/17 08/29/17 12:30 12:30 17:23 WBC RBC Hgb Hct MCV MCH RDW Plt Count Lymph % (Auto) [place] % (Auto) [place] # Seg Neutrophils % Seg Neuts % (Manual) Lymphocytes % (Manual) Monocytes % (Manual) Nucleated RBC % Seg Neutrophils # Seg Neutrophils # Man Lymphocytes # (Manual) Monocytes # (Manual) Eosinophils # (Manual) Basophils # (Manual) PT INR POC ABG pH ABG pH POC ABG pCO2 POC ABG pO2 ABG pO2 ABG Base Excess ABG Hemoglobin Sodium Potassium Chloride Carbon Dioxide BUN Creatinine Glucose POC Glucose 270 H Calcium Phosphorus Magnesium AST ALT Alkaline Phosphatase Troponin T C-Reactive Protein 19.10 H Total Protein Albumin Triglycerides HDL Cholesterol Miscellaneous Test Flexitest 1 H Crossmatch 08/30/17 08/30/17 08/30/17 00:10 01:30 03:31 WBC RBC Hgb Hct MCV MCH RDW Plt Count Lymph % (Auto) [place] % (Auto) [place] # Seg Neutrophils % Seg Neuts % (Manual) Lymphocytes % (Manual) Monocytes % (Manual) Nucleated RBC % Seg Neutrophils # Seg Neutrophils # Man Lymphocytes # (Manual) Monocytes # (Manual) Eosinophils # (Manual) Basophils # (Manual) PT INR POC ABG pH 7.168 L 7.335 L ABG pH POC ABG pCO2 72.8 H POC ABG pO2 257 H 117 H ABG pO2 ABG Base Excess ABG Hemoglobin Sodium Potassium Chloride Carbon Dioxide BUN Creatinine Glucose POC Glucose 245 H Calcium Phosphorus Magnesium AST ALT Alkaline Phosphatase Troponin T C-Reactive Protein Total Protein Albumin Triglycerides HDL Cholesterol Miscellaneous Test Crossmatch 08/30/17 08/30/17 08/30/17 05:20 05:20 05:20 WBC 40.9 H* RBC 3.64 L Hgb Hct MCV MCH RDW 24.3 H Plt Count Lymph % (Auto) [place] % (Auto) [place] # Seg Neutrophils % Seg Neuts % (Manual) 80.0 H Lymphocytes % (Manual) 3.0 L Monocytes % (Manual) Nucleated RBC % 1.0 H Seg Neutrophils # Seg Neutrophils # Man 32.7 H Lymphocytes # (Manual) Monocytes # (Manual) Eosinophils # (Manual) Basophils # (Manual) PT INR POC ABG pH ABG pH POC ABG pCO2 POC ABG pO2 ABG pO2 ABG Base Excess ABG Hemoglobin Sodium Potassium Chloride Carbon Dioxide BUN 83 H Creatinine 2.9 H Glucose 334 H POC Glucose 309 H Calcium Phosphorus Magnesium AST ALT Alkaline Phosphatase Troponin T C-Reactive Protein Total Protein Albumin Triglycerides HDL Cholesterol Miscellaneous Test Crossmatch 08/30/17 08/30/17 08/31/17 12:18 17:36 00:17 WBC RBC Hgb Hct MCV MCH RDW Plt Count Lymph % (Auto) [place] % (Auto) [place] # Seg Neutrophils % Seg Neuts % (Manual) Lymphocytes % (Manual) Monocytes % (Manual) Nucleated RBC % Seg Neutrophils # Seg Neutrophils # Man Lymphocytes # (Manual) Monocytes # (Manual) Eosinophils # (Manual) Basophils # (Manual) PT INR POC ABG pH ABG pH POC ABG pCO2 POC ABG pO2 ABG pO2 ABG Base Excess ABG Hemoglobin Sodium Potassium Chloride Carbon Dioxide BUN Creatinine Glucose POC Glucose 273 H 293 H 360 H Calcium Phosphorus Magnesium AST ALT Alkaline Phosphatase Troponin T C-Reactive Protein Total Protein Albumin Triglycerides HDL Cholesterol Miscellaneous Test Crossmatch 08/31/17 08/31/17 08/31/17 05:30 05:30 05:32 WBC 29.9 H RBC 2.89 L Hgb 8.2 L Hct 24.7 L D MCV MCH RDW 24.4 H Plt Count Lymph % (Auto) [place] % (Auto) [place] # Seg Neutrophils % Seg Neuts % (Manual) Lymphocytes % (Manual) 2.0 L Monocytes % (Manual) Nucleated RBC % 2.0 H Seg Neutrophils # Seg Neutrophils # Man 18.5 H Lymphocytes # (Manual) 0.6 L Monocytes # (Manual) 0.9 H Eosinophils # (Manual) Basophils # (Manual) PT INR POC ABG pH ABG pH POC ABG pCO2 POC ABG pO2 ABG pO2 ABG Base Excess ABG Hemoglobin Sodium Potassium Chloride Carbon Dioxide BUN 62 H Creatinine 2.2 H Glucose 245 H POC Glucose 257 H Calcium Phosphorus 2.10 L D Magnesium 1.60 L AST ALT Alkaline Phosphatase Troponin T C-Reactive Protein Total Protein Albumin Triglycerides HDL Cholesterol Miscellaneous Test Crossmatch 08/31/17 08/31/17 08/31/17 11:56 12:05 18:14 WBC 32.5 H RBC 3.19 L Hgb 8.8 L Hct 27.9 L MCV MCH RDW 24.9 H Plt Count Lymph % (Auto) [place] % (Auto) [place] # Seg Neutrophils % Seg Neuts % (Manual) Lymphocytes % (Manual) 1.0 L Monocytes % (Manual) 12.0 H Nucleated RBC % 1.0 H Seg Neutrophils # Seg Neutrophils # Man 13.3 H Lymphocytes # (Manual) 0.3 L Monocytes # (Manual) 3.9 H Eosinophils # (Manual) Basophils # (Manual) PT INR POC ABG pH ABG pH POC ABG pCO2 POC ABG pO2 ABG pO2 ABG Base Excess ABG Hemoglobin Sodium Potassium Chloride Carbon Dioxide BUN Creatinine Glucose POC Glucose 245 H Calcium Phosphorus Magnesium AST ALT Alkaline Phosphatase Troponin T C-Reactive Protein Total Protein Albumin Triglycerides HDL Cholesterol Miscellaneous Test Crossmatch See Detail 08/31/17 08/31/17 08/31/17 18:14 18:15 23:53 WBC RBC Hgb Hct MCV MCH RDW Plt Count Lymph % (Auto) [place] % (Auto) [place] # Seg Neutrophils % Seg Neuts % (Manual) Lymphocytes % (Manual) Monocytes % (Manual) Nucleated RBC % Seg Neutrophils # Seg Neutrophils # Man Lymphocytes # (Manual) Monocytes # (Manual) Eosinophils # (Manual) Basophils # (Manual) PT 15.1 H INR POC ABG pH ABG pH POC ABG pCO2 POC ABG pO2 ABG pO2 ABG Base Excess ABG Hemoglobin Sodium 136 L Potassium Chloride Carbon Dioxide 21 L BUN 69 H Creatinine 2.3 H Glucose 227 H POC Glucose 301 H Calcium Phosphorus 2.40 L Magnesium 1.50 L AST 143 H ALT 114 H Alkaline Phosphatase 267 H Troponin T C-Reactive Protein Total Protein 4.1 L Albumin 1.8 L Triglycerides HDL Cholesterol Miscellaneous Test Crossmatch 09/01/17 09/01/17 09/01/17 05:00 05:00 05:20 WBC 33.9 H RBC 2.85 L Hgb 7.8 L Hct 24.8 L MCV MCH 27 L RDW 23.9 H Plt Count Lymph % (Auto) [place] % (Auto) [place] # Seg Neutrophils % Seg Neuts % (Manual) Lymphocytes % (Manual) 5.0 L Monocytes % (Manual) Nucleated RBC % Seg Neutrophils # Seg Neutrophils # Man 23.1 H Lymphocytes # (Manual) Monocytes # (Manual) Eosinophils # (Manual) Basophils # (Manual) PT INR POC ABG pH ABG pH 7.348 L POC ABG pCO2 POC ABG pO2 ABG pO2 70.2 L ABG Base Excess ABG Hemoglobin 7.5 L Sodium Potassium Chloride Carbon Dioxide BUN 51 H Creatinine 1.8 H Glucose 195 H POC Glucose Calcium Phosphorus 1.70 L D Magnesium 1.60 L AST 80 H ALT 82 H Alkaline Phosphatase 243 H Troponin T C-Reactive Protein Total Protein 4.2 L Albumin 1.7 L Triglycerides HDL Cholesterol Miscellaneous Test Crossmatch 09/01/17 09/01/17 09/01/17 05:47 11:37 17:39 WBC RBC Hgb Hct MCV MCH RDW Plt Count Lymph % (Auto) [place] % (Auto) [place] # Seg Neutrophils % Seg Neuts % (Manual) Lymphocytes % (Manual) Monocytes % (Manual) Nucleated RBC % Seg Neutrophils # Seg Neutrophils # Man Lymphocytes # (Manual) Monocytes # (Manual) Eosinophils # (Manual) Basophils # (Manual) PT INR POC ABG pH ABG pH POC ABG pCO2 POC ABG pO2 ABG pO2 ABG Base Excess ABG Hemoglobin Sodium Potassium Chloride Carbon Dioxide BUN Creatinine Glucose POC Glucose 230 H 254 H 297 H Calcium Phosphorus Magnesium AST ALT Alkaline Phosphatase Troponin T C-Reactive Protein Total Protein Albumin Triglycerides HDL Cholesterol Miscellaneous Test Crossmatch 09/01/17 09/02/17 09/02/17 23:14 04:55 05:31 WBC RBC Hgb Hct MCV MCH RDW Plt Count Lymph % (Auto) [place] % (Auto) [place] # Seg Neutrophils % Seg Neuts % (Manual) Lymphocytes % (Manual) Monocytes % (Manual) Nucleated RBC % Seg Neutrophils # Seg Neutrophils # Man Lymphocytes # (Manual) Monocytes # (Manual) Eosinophils # (Manual) Basophils # (Manual) PT INR POC ABG pH ABG pH POC ABG pCO2 POC ABG pO2 ABG pO2 124.8 H ABG Base Excess -2.9 L ABG Hemoglobin 5.8 L Sodium Potassium Chloride Carbon Dioxide BUN Creatinine Glucose POC Glucose 291 H 245 H Calcium Phosphorus Magnesium AST ALT Alkaline Phosphatase Troponin T C-Reactive Protein Total Protein Albumin Triglycerides HDL Cholesterol Miscellaneous Test Crossmatch 09/02/17 09/02/17 09/02/17 06:10 11:58 15:37 WBC RBC Hgb Hct MCV MCH RDW Plt Count Lymph % (Auto) [place] % (Auto) [place] # Seg Neutrophils % Seg Neuts % (Manual) Lymphocytes % (Manual) Monocytes % (Manual) Nucleated RBC % Seg Neutrophils # Seg Neutrophils # Man Lymphocytes # (Manual) Monocytes # (Manual) Eosinophils # (Manual) Basophils # (Manual) PT INR POC ABG pH ABG pH POC ABG pCO2 POC ABG pO2 ABG pO2 ABG Base Excess ABG Hemoglobin Sodium Potassium Chloride Carbon Dioxide BUN 68 H Creatinine 2.2 H Glucose 369 H POC Glucose 333 H 314 H Calcium 8.2 L Phosphorus Magnesium AST ALT Alkaline Phosphatase Troponin T C-Reactive Protein Total Protein Albumin Triglycerides HDL Cholesterol Miscellaneous Test Crossmatch 09/02/17 09/03/1709/03/17 23:50 04:00 05:00 WBC 41.5 H* RBC 2.46 L Hgb 6.9 L Hct 21.3 L MCV MCH RDW 24.9 H Plt Count Lymph % (Auto) [place] % (Auto) [place] # Seg Neutrophils % Seg Neuts % (Manual) Lymphocytes % (Manual) 3.0 L Monocytes % (Manual) 9.5 H Nucleated RBC % 1.5 H Seg Neutrophils # Seg Neutrophils # Man 28.8 H Lymphocytes # (Manual) Monocytes # (Manual) 3.9 H Eosinophils # (Manual) Basophils # (Manual) PT INR POC ABG pH ABG pH POC ABG pCO2 POC ABG pO2 ABG pO2 ABG Base Excess ABG Hemoglobin Sodium Potassium Chloride Carbon Dioxide BUN 59 H Creatinine 1.9 H Glucose 231 H POC Glucose 240 H Calcium 8.0 L Phosphorus Magnesium AST ALT Alkaline Phosphatase 265 H Troponin T C-Reactive Protein Total Protein 4.4 L Albumin 1.7 L Triglycerides 180 H HDL Cholesterol Miscellaneous Test Crossmatch 09/03/17 09/03/17 05:32 Unknown WBC RBC Hgb Hct MCV MCH RDW Plt Count Lymph % (Auto) [place] % (Auto) [place] # Seg Neutrophils % Seg Neuts % (Manual) Lymphocytes % (Manual) Monocytes % (Manual) Nucleated RBC % Seg Neutrophils # Seg Neutrophils # Man Lymphocytes # (Manual) Monocytes # (Manual) Eosinophils # (Manual) Basophils # (Manual) PT INR POC ABG pH ABG pH POC ABG pCO2 POC ABG pO2 ABG pO2 133.4 H ABG Base Excess ABG Hemoglobin 5.8 L Sodium Potassium Chloride Carbon Dioxide BUN Creatinine Glucose POC Glucose 188 H Calcium Phosphorus Magnesium AST ALT Alkaline Phosphatase Troponin T C-Reactive Protein Total Protein Albumin Triglycerides HDL Cholesterol Miscellaneous Test Crossmatch
[2017-09-03] MEDS: DILAUDID IV PRN (09:20)
[2017-09-03] MEDS: MERREM 1,000 MG in NACL 0.9% 100 ML IV SCH (09:37)
[2017-09-03] MEDS: PROTONIX IV SCH ×2 (09:37→22:18)
[2017-09-03] MEDS: MYCAMINE 100 MG in NACL 0.9% 100 ML IV SCH (09:37)
[2017-09-03] MEDS: ZYVOX 600MG/300ML 600 MG/300 ML BAG IV SCH ×3 (09:40→22:17)
[2017-09-03] MEDS: LEVEMIR SUB-Q SCH (09:46)
[2017-09-03] MEDS ORDERED: NACL 0.9% 500 ML 500 ML IV ONE ×2 (10:00→17:14)
--- NOTE | 2017-09-03 10:17 | Progress Note ---
Assessment and Plan Assessment: 1) Sepsis with septic shock: still on levophed, leukocytosis worsening; new source ? surgical wound infection ? VAP. Initial source bowel obstruction / suspect ?gastric perforation. -CRP= 34 -->30 -->19 -procalcitonin=1.3 -->7.6 2) Bowel obstruction / suspect ?gastric perforation ? peritonitis -S/P Exlap, G-tube placement, EGD, abdominal washout and removal of PD -OR findings - bowel obstruction due to entanglement of PD cath, abscess cavity in LUQ and ? suspect perforation of unclear location 3) CA-UTI: chronic ivan exchanged every 4 weeks and ureteral stents in place which are exchanged every 6 months ? urine cultures still pending should r/o MDR bacteria 4) Paraplegia 5) ESRD on PD - no evidence of peritonitis, wbc count 2. [employer] and Diphteroids on peritoneal fluid likely contaminants. 6) Recent pancreatitis 7) Penicillin allergy-has taken keflex w/o problems 8) Presumed Surgical wound infection ? 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 Ramya Lang MD Infectious Diseases Specialist [facility] ([facility]) M [phone] O [phone] Subjective Date of service: 09/03/17 Principal diagnosis: septic shock Interval history: Pt remains intubated on the vent on levophed at 3, on TPN, fentanyl, no fever. Microbiology: Blood cultures: 08/08 neg 08/12 neg 08/16 neg 08/20 neg 08/29 neg Urine cultures: 08/08 10-100K skin grace Respiratory cultures: 08/30 tracheal asp MRSA Wound cultures: 08/26 Staph aureus and Kristine 08/28 MRSA, E faecalis, Kristine albicans Stool cultures: Other: 08/08 peritoneal fluid + [employer]/Diphteroids Current Antimicrobials: zyvox 09/03 Micafungin 08/29 meropenem 10 Previous Antimicrobials: 08/10 levaquin 08/16 vancomycin 08/13 meropenem 08/16 fluconazole Objective - Exam Narrative Exam: General appearance: somnolent on vent Eyes: anicteric sclerae, moist conjunctivae; no lid-lag; PERRLA HENT: Atraumatic; limited OP ETT, NGT Neck: Trachea midline; supple, no thyromegaly or lymphadenopathy Lungs: coarse BS moreno CV: RRR, no murmurs Abdomen: soft, midline surgical wound with surtures. Gtube Extremities: + peripheral edema + leg ulcer Skin: Normal temperature, turgor and texture; no rash, ulcers or subcutaneous nodules Psych: sedated. Neuro: sedated Lines: Right vascath femoral / Right IJ Nair 08/16 - Constitutional Vitals: Vital Signs Temp Pulse Resp BP Pulse Ox 98.5 F 80 20 116/54 100 09/03/17 08:00 09/03/17 08:00 09/03/17 07:01 09/03/17 08:00 09/03/17 08:00 Temperature -Last 24 Hours Temperature 98.5 F Temperature 99 F Temperature 97.4 F Temperature 99.5 F Temperature 98.2 F Temperature 98.8 F Temperature 98.8 F Temperature 98.2 F Temperature 98.4 F - Labs CBC & Chem 7: 09/03/17 05:00 09/03/17 04:00 Labs: Abnormal lab results 08/31/17 09/02/17 09/02/17 Range/Units 11:56 11:58 15:37 WBC (4.5-11.0) K/mm3 RBC (3.65-5.03) M/mm3 Hgb (10.1-14.3) gm/dl Hct (30.3-42.9) % RDW (13.2-15.2) % Lymphocytes % (Manual) (13.4-35.0) % Monocytes % (Manual) (0.0-7.3) % Nucleated RBC % (0.0-0.9) % Seg Neutrophils # Man (1.8-7.7) K/mm3 Monocytes # (Manual) (0.0-0.8) K/mm3 ABG pO2 (80.0-90.0) mm Hg ABG Hemoglobin (12.0-16.0) gm/dl BUN (7-17) mg/dL Creatinine (0.7-1.2) mg/dL Glucose (65-100) mg/dL POC Glucose 333 H 314 H (70-105) Calcium (8.4-10.2) mg/dL Alkaline Phosphatase (35-129) units/L Total Protein (6.3-8.2) g/dL Albumin (3.9-5) g/dL Triglycerides (2-149) mg/dL Crossmatch See Detail 09/02/17 09/03/17 09/03/17 Range/Units 23:50 04:00 05:00 WBC 41.5 H* (4.5-11.0) K/mm3 RBC 2.46 L (3.65-5.03) M/mm3 Hgb 6.9 L (10.1-14.3) gm/dl Hct 21.3 L (30.3-42.9) % RDW 24.9 H (13.2-15.2) % Lymphocytes % (Manual) 3.0 L (13.4-35.0) % Monocytes % (Manual) 9.5 H (0.0-7.3) % Nucleated RBC % 1.5 H (0.0-0.9) % Seg Neutrophils # Man 28.8 H (1.8-7.7) K/mm3 Monocytes # (Manual) 3.9 H (0.0-0.8) K/mm3 ABG pO2 (80.0-90.0) mm Hg ABG Hemoglobin (12.0-16.0) gm/dl BUN 59 H (7-17) mg/dL Creatinine 1.9 H (0.7-1.2) mg/dL Glucose 231 H (65-100) mg/dL POC Glucose 240 H (70-105) Calcium 8.0 L (8.4-10.2) mg/dL Alkaline Phosphatase 265 H (35-129) units/L Total Protein 4.4 L (6.3-8.2) g/dL Albumin 1.7 L (3.9-5) g/dL Triglycerides 180 H (2-149) mg/dL Crossmatch 09/03/17 09/03/17 Range/Units 05:32 Unknown WBC (4.5-11.0) K/mm3 RBC (3.65-5.03) M/mm3 Hgb (10.1-14.3) gm/dl Hct (30.3-42.9) % RDW (13.2-15.2) % Lymphocytes % (Manual) (13.4-35.0) % Monocytes % (Manual) (0.0-7.3) % Nucleated RBC % (0.0-0.9) % Seg Neutrophils # Man (1.8-7.7) K/mm3 Monocytes # (Manual) (0.0-0.8) K/mm3 ABG pO2 133.4 H (80.0-90.0) mm Hg ABG Hemoglobin 5.8 L (12.0-16.0) gm/dl BUN (7-17) mg/dL Creatinine (0.7-1.2) mg/dL Glucose (65-100) mg/dL POC Glucose 188 H (70-105) Calcium (8.4-10.2) mg/dL Alkaline Phosphatase (35-129) units/L Total Protein (6.3-8.2) g/dL Albumin (3.9-5) g/dL Triglycerides (2-149) mg/dL Crossmatch
--- NOTE | 2017-09-03 10:19 | Progress Note ---
Assessment and Plan - Patient Problems (1) Peritonitis (acute) generalized Current Visit: Yes Status: Acute Plan to address problem: POD #3 s/p ex lap, abdominal wash out and abdominal wall closure after wound dehiscence 2 weeks s/p ex lap for gastric perforation and sbo. afebrile, stable with decrease requirements of pressor support. MERVIN: drk blood- likely old clot breaking down. Does not appear fresh. 2 units prbc to be transf. at HD today. will continue wound dressings will continue to wean pressors and vent as tolerated-trach planned continue TPN for nutrition, due to her malnutrition, she is having pronounced delay in healing. would not start tube feeds until the integrity of the healing of the stomach perforation is tested. Rec. titrating steroids- pt already at risk for poor wound healing due to multiple co-morbidities and hx of steroids Rec change HD catheter site. PPI. Subjective Narrative: Family at bedside. No acute events overnight. Afebrile. Pt moving her arms and withdrawing to pain. Levo 8 G tube: 190cc bilious MERVIN: 230 drk blood. NG minimal Objective Vital Signs - 12hr 09/02/17 09/02/17 09/02/17 22:30 22:45 23:00 Temperature Pulse Rate 85 86 85 Pulse Rate [ Anterior Bilateral Throughout] Pulse Rate [ Apical] Respiratory 20 11 L 20 Rate Respiratory Rate [Anterior Bilateral Throughout] Blood Pressure 95/44 99/55 77/43 O2 Sat by Pulse 100 100 100 Oximetry 09/02/17 09/02/17 09/02/17 23:12 23:15 23:30 Temperature 97.4 F L Pulse Rate 93 H 83 Pulse Rate [ Anterior Bilateral Throughout] Pulse Rate [ 83 Apical] Respiratory 18 20 Rate Respiratory Rate [Anterior Bilateral Throughout] Blood Pressure 77/43 86/56 O2 Sat by Pulse 93 100 Oximetry 09/02/17 09/02/17 09/03/17 23:45 23:59 00:00 Temperature Pulse Rate 83 84 84 Pulse Rate [ Anterior Bilateral Throughout] Pulse Rate [ Apical] Respiratory 21 16 Rate Respiratory Rate [Anterior Bilateral Throughout] Blood Pressure 86/56 95/65 87/62 O2 Sat by Pulse 100 100 100 Oximetry 09/03/17 09/03/17 09/03/17 00:15 00:31 00:45 Temperature Pulse Rate 84 87 88 Pulse Rate [ Anterior Bilateral Throughout] Pulse Rate [ Apical] Respiratory 20 22 16 Rate Respiratory Rate [Anterior Bilateral Throughout] Blood Pressure 87/62 95/63 109/64 O2 Sat by Pulse Oximetry 09/03/17 09/03/17 09/03/17 01:00 01:15 01:31 Temperature Pulse Rate 85 86 82 Pulse Rate [ Anterior Bilateral Throughout] Pulse Rate [ Apical] Respiratory 20 19 18 Rate Respiratory Rate [Anterior Bilateral Throughout] Blood Pressure 123/50 107/56 109/64 O2 Sat by Pulse 100 97 100 Oximetry 09/03/17 09/03/17 09/03/17 01:45 01:56 02:00 Temperature Pulse Rate 85 87 Pulse Rate [ 83 84 Anterior Bilateral Throughout] Pulse Rate [ Apical] Respiratory 20 13 Rate Respiratory 20 23 Rate [Anterior Bilateral Throughout] Blood Pressure 107/54 97/67 O2 Sat by Pulse 98 100 Oximetry 09/03/17 09/03/17 09/03/17 02:15 02:31 02:45 Temperature Pulse Rate 92 H 83 81 Pulse Rate [ Anterior Bilateral Throughout] Pulse Rate [ Apical] Respiratory 19 20 20 Rate Respiratory Rate [Anterior Bilateral Throughout] Blood Pressure 97/67 134/58 122/63 O2 Sat by Pulse 99 100 100 Oximetry 09/03/17 09/03/17 09/03/17 03:00 03:15 03:23 Temperature 99 F Pulse Rate 82 87 Pulse Rate [ Anterior Bilateral Throughout] Pulse Rate [ Apical] Respiratory 20 18 Rate Respiratory Rate [Anterior Bilateral Throughout] Blood Pressure 128/56 98/59 O2 Sat by Pulse 94 92 Oximetry 09/03/17 09/03/17 09/03/17 03:30 03:45 04:01 Temperature Pulse Rate 83 84 84 Pulse Rate [ Anterior Bilateral Throughout] Pulse Rate [ Apical] Respiratory 21 13 18 Rate Respiratory Rate [Anterior Bilateral Throughout] Blood Pressure 90/61 100/70 100/68 O2 Sat by Pulse 94 70 L 100 Oximetry 09/03/17 09/03/17 09/03/17 04:14 04:15 04:20 Temperature Pulse Rate 80 78 Pulse Rate [ Anterior Bilateral Throughout] Pulse Rate [ Apical] Respiratory 17 24 Rate Respiratory Rate [Anterior Bilateral Throughout] Blood Pressure 138/61 100/68 O2 Sat by Pulse 100 100 98 Oximetry 09/03/17 09/03/17 09/03/17 04:30 04:45 05:01 Temperature Pulse Rate 79 84 82 Pulse Rate [ Anterior Bilateral Throughout] Pulse Rate [ Apical] Respiratory 20 19 19 Rate Respiratory Rate [Anterior Bilateral Throughout] Blood Pressure 100/64 100/64 100/64 O2 Sat by Pulse 100 100 100 Oximetry 09/03/17 09/03/17 09/03/17 05:15 05:31 05:45 Temperature Pulse Rate 80 81 79 Pulse Rate [ Anterior Bilateral Throughout] Pulse Rate [ Apical] Respiratory 20 19 17 Rate Respiratory Rate [Anterior Bilateral Throughout] Blood Pressure 100/64 119/57 128/59 O2 Sat by Pulse 100 100 100 Oximetry 09/03/17 09/03/17 09/03/17 06:00 06:15 06:31 Temperature Pulse Rate 78 84 84 Pulse Rate [ Anterior Bilateral Throughout] Pulse Rate [ Apical] Respiratory 20 20 15 Rate Respiratory Rate [Anterior Bilateral Throughout] Blood Pressure 144/70 144/70 129/65 O2 Sat by Pulse 100 100 100 Oximetry 09/03/17 09/03/17 09/03/17 06:45 07:01 08:00 Temperature 98.5 F Pulse Rate 86 83 80 Pulse Rate [ Anterior Bilateral Throughout] Pulse Rate [ Apical] Respiratory 18 20 Rate Respiratory Rate [Anterior Bilateral Throughout] Blood Pressure 129/65 108/31 116/54 O2 Sat by Pulse 100 100 100 Oximetry - General physical appearance obese, other (withdrawl to pain) - Neck trachea midline - Respiratory normal expansion, normal respiratory effort, other (vent) - Abdomen soft, other (midline packing removed. serosang drainage from midline. non foul smelling. irrigated with repacked with iodoform packing. retention sutures in place. prev PD cath site: packign removed and repacked with light wet to dry. MERVIN and G tube in place. ) - Genitourinary other (ivan ) - Neurologic other (redrwl to pain) - Musculoskeletal other (moves upper and lower extremities- not follow commands ) - Psychiatric other (awake ) - Labs 09/03/17 05:00 09/03/17 04:00 Diabetes panel 09/03/17 Range/Units 04:00 Sodium 138 (137-145) mmol/L Potassium 4.3 (3.6-5.0) mmol/L Chloride 98.1 (98-107) mmol/L Carbon Dioxide 24 (22-30) mmol/L BUN 59 H (7-17) mg/dL Creatinine 1.9 H (0.7-1.2) mg/dL Glucose 231 H (65-100) mg/dL Calcium 8.0 L (8.4-10.2) mg/dL AST 40 (5-40) units/L ALT 34 (7-56) units/L Alkaline Phosphatase 265 H (35-129) units/L Total Protein 4.4 L (6.3-8.2) g/dL Albumin 1.7 L (3.9-5) g/dL Triglycerides 180 H (2-149) mg/dL Calcium panel 09/03/17 Range/Units 04:00 Calcium 8.0 L (8.4-10.2) mg/dL Albumin 1.7 L (3.9-5) g/dL Pituitary panel 09/03/17 Range/Units 04:00 Sodium 138 (137-145) mmol/L Potassium 4.3 (3.6-5.0) mmol/L Chloride 98.1 (98-107) mmol/L Carbon Dioxide 24 (22-30) mmol/L BUN 59 H (7-17) mg/dL Creatinine 1.9 H (0.7-1.2) mg/dL Glucose 231 H (65-100) mg/dL Calcium 8.0 L (8.4-10.2) mg/dL Adrenal panel 09/03/17 Range/Units 04:00 Sodium 138 (137-145) mmol/L Potassium 4.3 (3.6-5.0) mmol/L Chloride 98.1 (98-107) mmol/L Carbon Dioxide 24 (22-30) mmol/L BUN 59 H (7-17) mg/dL Creatinine 1.9 H (0.7-1.2) mg/dL Glucose 231 H (65-100) mg/dL Calcium 8.0 L (8.4-10.2) mg/dL Total Bilirubin 0.90 (0.1-1.2) mg/dL AST 40 (5-40) units/L ALT 34 (7-56) units/L Alkaline Phosphatase 265 H (35-129) units/L Total Protein 4.4 L (6.3-8.2) g/dL Albumin 1.7 L (3.9-5) g/dL
--- NOTE | 2017-09-03 11:40 | Progress Note ---
Assessment and Plan Assessment: Acute on chronic respiratory failure - for possible trach per pulmonary Hypotension - on levophed UTI / sepsis / septic shock / ? peritonitis / presumed surgical wound infection / recent pancreatitis - ID following POD #3 s/p ex lap, abdominal wash out and abdominal wall closure after wound dehiscence 2 weeks s/p ex lap for gastric perforation and sbo. - surgery following Elevated troponin ESRD - was on PD at home, now on HD RLE wound/abscess History of cervical surgery and postoperative complications, wheelchair bound since then / Autonomic dysfunction Morbid obesity NSVT anemia - for PRBC tx Plan: NSVT noted on tele yesterday. Wean levophed as tolerated. The patient has been seen in conjunction with Dr. Pineda who agrees with the assessment and plan of care. Subjective Date of service: 09/03/17 Interval history: Pt resting in bed, intubated, nonresponsive. Called to re-evaluate pt d/t NSVT noted on tele yesterday. Levophed gtt infusing. Family at bedside. Objective Last Vital Signs Temp 98.5 F 09/03/17 08:00 Pulse 82 09/03/17 11:31 Resp 14 09/03/17 11:31 BP 99/55 09/03/17 11:31 Pulse Ox 98 09/03/17 11:31 - Physical Examination General: Appears Well, No Apparent Distress HEENT: Positive: EOMI, Normocephaly, Mucus Membranes Moist Neck: Positive: neck supple Cardiac: Positive: Reg Rate and Rhythm, S1/S2 Lungs: Positive: clear to auscultation Neuro: Positive: Other (right lower extremity weakness) Abdomen: Positive: Soft, Active Bowel Sounds, Tender (mildly tender) Skin: Positive: Clear. Negative: Rash Musculoskeletal: Normal Range of Motion Extremities: Absent: edema - Labs and Meds Cardiac Enzymes 09/03/17 Range/Units 04:00 AST 40 (5-40) units/L Lipids 09/03/17 Range/Units 04:00 Triglycerides 180 H (2-149) mg/dL CBC 09/03/17 Range/Units 05:00 WBC 41.5 H* (4.5-11.0) K/mm3 RBC 2.46 L (3.65-5.03) M/mm3 Hgb 6.9 L (10.1-14.3) gm/dl Hct 21.3 L (30.3-42.9) % Plt Count 276 (140-440) K/mm3 Comprehensive Metabolic Panel 09/03/17 Range/Units 04:00 Sodium 138 (137-145) mmol/L Potassium 4.3 (3.6-5.0) mmol/L Chloride 98.1 (98-107) mmol/L Carbon Dioxide 24 (22-30) mmol/L BUN 59 H (7-17) mg/dL Creatinine 1.9 H (0.7-1.2) mg/dL Glucose 231 H (65-100) mg/dL Calcium 8.0 L (8.4-10.2) mg/dL AST 40 (5-40) units/L ALT 34 (7-56) units/L Alkaline Phosphatase 265 H (35-129) units/L Total Protein 4.4 L (6.3-8.2) g/dL Albumin 1.7 L (3.9-5) g/dL - Imaging and Cardiology EKG: image reviewed Echo: report reviewed (EF 55-60%, trace MR, trace TR) - EKG Sinus rhythms and dysrhythmias: sinus rhythm Repolarization changes or abnormalities: ST or T wave suggestive of ischemia
--- NOTE | 2017-09-03 13:56 | Progress Note ---
Assessment and Plan Assessment and plan: 62 YO Female with MO, ESRD-PD (with PD cath in place )(Daily), HTN, OA, Ischemic Cardiomyopathy currently on Milrinone, Chronic Pain who came to ED with lightheaded and syncope, she c/o abdomnal pain x 2 days, was found to have hypotension, septic shock and intra-abdominal abscess. Acute hypoxic respiratory failure on MV > 96 hours continue ventilator Activity rectal bleeding with severe acute blood loss anemia -EGD showed small gastric ulcer -sp multiple transfusions -- GI consult appreciated - Patient had CTA of abdomen and pelvis no active bleeding - transfuse to keep Hg above 8 given septic shock ESRD -continue HD per renal per femoral HD cath -needs perm cath when improved Septic shock. - continue IV pressors Sepsis secondary to peritonitis, Intra abdominal abscess and Bowel obstruction - Patient had completed 14 days of meropenem and diflucan - Patient restarted with IV vancomycin, meropenem and micafungin, ID input appreciated -ID on board - she has had the following procedures 08/31: Ex lap with abdominal wash out and closure 08/17: Ex lap with G tube placement, EGD, abdominal wash out and removal of PD Cath Ulcerative esophagitis/small gastric ulcer on EGD - IV pantoprazole Severe Protein calorie malnutrition - Continue with TPN Sacral and lower extremity wound, POA - continue wound care NSVT likely due to levophed, wean as tolerated cardiology input appreciated --DVT prophylaxis; SCDs - D/C Heparin because of GI bleed Plan of care discussed with the patient's family at bedside Disposition - continue ICU care Prognosis: guarded The high probability of a clinically significant, sudden or life threatening deterioration of the [cv, pulmonary and GI] system(s) required my full and direct attention, intervention and personal management. The aggregate critical care time was [33] minutes. This time is in addition to time spent performing reported procedures but includes the following: [] Data Review and interpretation [] Patient assessment and monitoring of vital signs [] Documentation [] Medication orders and management History Interval history: continues to be intubated, sedated, pressor dependent Hospitalist Physical - Physical exam Narrative exam: General.: Obese HEENT: Moist mucous membranes, extraocular muscles intact, no lymphadenopathy Neck: supple Cardiac: S1-S2 heard Lungs: clear to auscultation bilaterally Abdomen: soft, bowel sounds normal, other (obese, soft, dressing not removed) Extremities: no edema clubbing or cyanosis Skin: no rash or lesions Neurologic: Intubated, obeys commands, arousable - Constitutional Vitals: Temp Pulse Resp BP Pulse Ox 98.5 F 83 20 131/59 100 09/03/17 12:00 09/03/17 12:45 09/03/17 12:45 09/03/17 12:45 09/03/17 12:45 General appearance: Present: well-nourished Results - Labs CBC & Chem 7: 09/04/17 04:32 09/04/17 04:32 Labs: Laboratory Last Values WBC 41.5 K/mm3 (4.5-11.0) H* 09/03/17 05:00 RBC 2.46 M/mm3 (3.65-5.03) L 09/03/17 05:00 Hgb 6.9 gm/dl (10.1-14.3) L 09/03/17 05:00 Hct 21.3 % (30.3-42.9) L 09/03/17 05:00 MCV 87 fl (79-97) 09/03/17 05:00 MCH 28 pg (28-32) 09/03/17 05:00 MCHC 32 % (30-34) 09/03/17 05:00 RDW 24.9 % (13.2-15.2) H 09/03/17 05:00 Plt Count 276 K/mm3 (140-440) 09/03/17 05:00 Lymph % (Auto) [employer] 08/19/17 07:37 [place] % (Auto) [employer] 08/19/17 07:37 Eos % (Auto) [employer] 08/19/17 07:37 Baso % (Auto) [employer] 08/19/17 07:37 Lymph # [employer] 08/19/17 07:37 [place] # [employer] 08/19/17 07:37 Eos # [employer] 08/19/17 07:37 Baso # [employer] 08/19/17 07:37 Add Manual Diff Complete 09/03/17 05:00 Total Counted 200 09/03/17 05:00 Seg Neutrophils % [employer] 08/31/17 18:14 Seg Neuts % (Manual) 69.5 % (40.0-70.0) 09/03/17 05:00 Band Neutrophils % 9.5 % 09/03/17 05:00 Lymphocytes % (Manual) 3.0 % (13.4-35.0) L 09/03/17 05:00 Reactive Lymphs % (Man) 0 % 09/03/17 05:00 Monocytes % (Manual) 9.5 % (0.0-7.3) H 09/03/17 05:00 Eosinophils % (Manual) 0 % (0.0-4.3) 09/03/17 05:00 Basophils % (Manual) 0 % (0.0-1.8) 09/03/17 05:00 Metamyelocytes % 7.0 % 09/03/17 05:00 Myelocytes % 1.5 % 09/03/17 05:00 Promyelocytes % 0 % 09/03/17 05:00 Blast Cells % 0 % 09/03/17 05:00 Nucleated RBC % 1.5 % (0.0-0.9) H 09/03/17 05:00 Seg Neutrophils # [employer] 08/19/17 07:37 Seg Neutrophils # Man 28.8 K/mm3 (1.8-7.7) H 09/03/17 05:00 Band Neutrophils # 3.9 K/mm3 09/03/17 05:00 Lymphocytes # (Manual) 1.2 K/mm3 (1.2-5.4) 09/03/17 05:00 Abs React Lymphs (Man) 0.0 K/mm3 09/03/17 05:00 Monocytes # (Manual) 3.9 K/mm3 (0.0-0.8) H 09/03/17 05:00 Eosinophils # (Manual) 0.0 K/mm3 (0.0-0.4) 09/03/17 05:00 Basophils # (Manual) 0.0 K/mm3 (0.0-0.1) 09/03/17 05:00 Metamyelocytes # 2.9 K/mm3 09/03/17 05:00 Myelocytes # 0.6 K/mm3 09/03/17 05:00 Promyelocytes # 0.0 K/mm3 09/03/17 05:00 Blast Cells # 0.0 K/mm3 09/03/17 05:00 Pathologist Review Not Reportable 08/30/17 05:20 WBC Morphology Not Reportable 09/03/17 05:00 Hypersegmented Neuts Not Reportable 09/03/17 05:00 Hyposegmented Neuts Not Reportable 09/03/17 05:00 Hypogranular Neuts Not Reportable 09/03/17 05:00 Smudge Cells Not Reportable 09/03/17 05:00 Toxic Granulation Not Reportable 09/03/17 05:00 Toxic Vacuolation Not Reportable 09/03/17 05:00 Dohle Bodies Not Reportable 09/03/17 05:00 Pelger-Huet Anomaly Not Reportable 09/03/17 05:00 Ariel Rods Not Reportable 09/03/17 05:00 Platelet Estimate Appears normal 09/03/17 05:00 Clumped Platelets Not Reportable 09/03/17 05:00 Plt Clumps, EDTA Not Reportable 09/03/17 05:00 Large Platelets Not Reportable 09/03/17 05:00 Giant Platelets Not Reportable 09/03/17 05:00 Platelet Satelliting Not Reportable 09/03/17 05:00 Plt Morphology Comment Not Reportable 09/03/17 05:00 RBC Morphology Not Reportable 09/03/17 05:00 Dimorphic RBCs Not Reportable 09/03/17 05:00 Polychromasia Few 09/03/17 05:00 Hypochromasia Few 09/03/17 05:00 Poikilocytosis Rare 09/03/17 05:00 Anisocytosis 2+ 09/03/17 05:00 Microcytosis Not Reportable 09/03/17 05:00 Macrocytosis Not Reportable 09/03/17 05:00 Spherocytes Not Reportable 09/03/17 05:00 Pappenheimer Bodies Not Reportable 09/03/17 05:00 Sickle Cells Not Reportable 09/03/17 05:00 Target Cells Not Reportable 09/03/17 05:00 Tear Drop Cells Not Reportable 09/03/17 05:00 Ovalocytes 1+ 09/03/17 05:00 Stomatocytes Rare 09/01/17 05:00 Helmet Cells Not Reportable 09/03/17 05:00 [place] Bodies Not Reportable 09/03/17 05:00 [place] Rings Not Reportable 09/03/17 05:00 [place] Cells Not Reportable 09/03/17 05:00 Bite Cells Not Reportable 09/03/17 05:00 Crenated Cell Not Reportable 09/03/17 05:00 Elliptocytes Not Reportable 09/03/17 05:00 Acanthocytes (Spur) Not Reportable 09/03/17 05:00 Rouleaux Not Reportable 09/03/17 05:00 Hemoglobin C Crystals Not Reportable 09/03/17 05:00 Schistocytes Not Reportable 09/03/17 05:00 Malaria parasites Not Reportable 09/03/17 05:00 Jovanni Bodies Not Reportable 09/03/17 05:00 Hem Pathologist Commnt No 09/03/17 05:00 PT 15.1 Sec. (12.2-14.9) H 08/31/17 18:15 INR 1.13 (0.87-1.13) 08/31/17 18:15 APTT 28.7 Sec. (24.2-36.6) 08/31/17 18:15 POC ABG pH 7.335 (7.35-7.45) L 08/30/17 03:31 ABG pH 7.407 pH Units (7.350-7.450) 09/03/17 Unknown POC ABG pCO2 44.1 (35-45) 08/30/17 03:31 ABG pCO2 41.2 mm Hg 09/03/17 Unknown POC ABG pO2 117 (80-105) H 08/30/17 03:31 ABG pO2 133.4 mm Hg (80.0-90.0) H 09/03/17 Unknown POC ABG HCO3 23.5 08/30/17 03:31 ABG HCO3 25.4 mmol/L (20.0-26.0) 09/03/17 Unknown POC ABG Total CO2 25 08/30/17 03:31 POC ABG O2 Sat 98 08/30/17 03:31 ABG O2 Saturation 98.6 % (95.0-99.0) 09/03/17 Unknown ABG O2 Content 8.2 (0.0-44) 09/03/17 Unknown POC ABG Base Excess -2 08/30/17 03:31 ABG Base Excess 0.6 mmol/L (-2.0-3.0) 09/03/17 Unknown ABG Hemoglobin 5.8 gm/dl (12.0-16.0) L 09/03/17 Unknown ABG Carboxyhemoglobin 1.6 % (0.0-5.0) 09/03/17 Unknown ABG Methemoglobin 0.4 % (0.0-1.5) 09/03/17 Unknown VBG pH 7.462 (7.320-7.420) H 08/08/17 14:52 Oxyhemoglobin 96.6 % (95.0-99.0) 09/03/17 Unknown FiO2 40 % 09/03/17 Unknown Sodium 138 mmol/L (137-145) 09/03/17 04:00 Potassium 4.3 mmol/L (3.6-5.0) 09/03/17 04:00 Chloride 98.1 mmol/L (98-107) 09/03/17 04:00 Carbon Dioxide 24 mmol/L (22-30) 09/03/17 04:00 Anion Gap 20 mmol/L 09/03/17 04:00 BUN 59 mg/dL (7-17) H 09/03/17 04:00 Creatinine 1.9 mg/dL (0.7-1.2) H 09/03/17 04:00 Estimated GFR 33 ml/min 09/03/17 04:00 BUN/Creatinine Ratio 31 % 09/03/17 04:00 Glucose 231 mg/dL (65-100) H 09/03/17 04:00 POC Glucose 285 (70-105) H 09/03/17 11:52 Lactic Acid 1.60 mmol/L (0.7-2.0) 08/17/17 11:20 Calcium 8.0 mg/dL (8.4-10.2) L 09/03/17 04:00 Phosphorus 3.20 mg/dL (2.5-4.5) D 09/02/17 06:10 Magnesium 1.90 mg/dL (1.7-2.3) 09/02/17 06:10 Total Bilirubin 0.90 mg/dL (0.1-1.2) 09/03/17 04:00 Direct Bilirubin 0.2 mg/dL (0-0.2) 08/08/17 14:11 Indirect Bilirubin 0.3 mg/dL 08/08/17 14:11 AST 40 units/L (5-40) 09/03/17 04:00 ALT 34 units/L (7-56) 09/03/17 04:00 Alkaline Phosphatase 265 units/L (35-129) H 09/03/17 04:00 Ammonia 25.0 umol/L (25-60) 08/08/17 14:52 Troponin T 0.132 ng/mL (0.00-0.029) H* 08/09/17 13:25 C-Reactive Protein 0.10 mg/dL (0.00-1.30) 09/03/17 05:30 NT-Pro-B Natriuret Pep 6156 pg/mL (0-900) H 08/08/17 14:11 Total Protein 4.4 g/dL (6.3-8.2) L 09/03/17 04:00 Albumin 1.7 g/dL (3.9-5) L 09/03/17 04:00 Albumin/Globulin Ratio 0.6 % 09/03/17 04:00 Triglycerides 180 mg/dL (2-149) H 09/03/17 04:00 Cholesterol 91 mg/dL (50-199) 08/08/17 21:23 LDL Cholesterol Direct 53 mg/dL (50-130) 08/08/17 21:23 HDL Cholesterol 26 mg/dL (40-59) L 08/08/17 21:23 Cholesterol/HDL Ratio 3.50 % 08/08/17 21:23 Amylase 45 units/L (27-131) 08/16/17 09:50 Lipase 34 units/L (13-60) 08/16/17 09:50 TSH 6.580 mlU/mL (0.270-4.200) H 08/08/17 14:22 Free T4 1.46 ng/dL (0.76-1.46) 08/08/17 14:22 Total Cortisol 30.1 mcg/dL () 08/13/17 06:14 Urine Color Yellow (Yellow) 08/08/17 20:15 Urine Turbidity Turbid (Clear) 08/08/17 20: Urine pH 8.0 (5.0-7.0) H 08/08/17 20:15 Ur Specific [place] 1.015 (1.003-1.030) 08/08/17 20:15 Urine Protein 100 mg/dl mg/dL (Negative) 08/08/17 20:15 Urine Glucose (UA) Neg mg/dL (Negative) 08/08/17 20:15 Urine Ketones Neg mg/dL (Negative) 08/08/17 20:15 Urine Blood Mod (Negative) 08/08/17 20:15 Urine Nitrite Neg (Negative) 08/08/17 20:15 Urine Bilirubin Neg (Negative) 08/08/17 20:15 Urine Urobilinogen < 2.0 mg/dL (<2.0) 08/08/17 20:15 Ur Leukocyte Esterase Lg (Negative) 08/08/17 20:15 Urine WBC (Auto) 24.0 /HPF (0.0-6.0) H 08/08/17 20:15 Urine RBC (Auto) 3.0 /HPF (0.0-6.0) 08/08/17 20:15 U Epithel Cells (Auto) 3.0 /HPF (0-13.0) 08/08/17 20:15 Urine Bacteria (Auto) 4+ /HPF (Negative) 08/08/17 20:15 Urine Mucus 3+ /HPF 08/08/17 20:15 Fluid Type Peritoneal 08/08/17 18:18 Fluid Color Straw 08/08/17 18:18 Fluid Appearance Clear 08/08/17 18:18 Fluid pH 7.74 08/08/17 18:18 Fluid WBC 4 /mm3 08/08/17 18:18 Fluid RBC 1 /mm3 08/08/17 18:18 Fluid Seg Neutrophils 12 % 08/08/17 18:18 Fluid Lymphocytes 0 % 08/08/17 18:18 Fluid Reactive Lymphs 0 % 08/08/17 18:18 Fluid Monocytes 1 % 08/08/17 18:18 Fluid Eosinophils 0 % 08/08/17 18:18 Fluid Basophils 0 % 08/08/17 18:18 Fluid Glucose 315 mg/dL (40-70) H 08/08/17 18:18 Random Vancomycin 19.5 ug/mL (0-40.0) 08/22/17 03:40 Hep Bs Antigen Non-reactive (Negative) 08/22/17 03:40 Hepatitis C Antibody Non-reactive (NonReactive) 08/22/17 03:40 Miscellaneous Test Flexitest 1 H 08/29/17 12:30 Blood Type O POSITIVE 08/31/17 11:56 Antibody Screen TNR 08/31/17 11:56 VAN Antibody Screen Negative 08/31/17 11:56 Crossmatch See Detail 08/31/17 11:56
[2017-09-03] MEDS ORDERED: TPN ADULT 1,800 ML IV SCH (20:00)
[2017-09-04] MEDS: DUONEB *Not for PRN Use IH SCH ×4 (01:27→19:51)
[2017-09-04] MEDS: DILAUDID IV PRN ×2 (03:56→10:07)
[2017-09-04 03:59] LABS: ABG Base Excess -2.5 mmol/L (-2.0-3.0); ABG HCO3 21.7 mmol/L (20.0-26.0); ABG Oxygen Saturation 98.7 % (95.0-99.0); ABG PCO2 34.6 mm Hg; ABG PH 7.415 pH Units (7.350-7.450)
[2017-09-04 05:07] LABS: Calcium 8.3 mg/dL (8.4-10.2); Chloride 94.2 mmol/L (98-107); Magnesium 2.2 mg/dL (1.7-2.3); Phosphorous 4.2 mg/dL (2.5-4.5); Potassium 5.2 mmol/L (3.6-5.0)
[2017-09-04 05:12] LABS: Hematocrit 26.7 % (30.3-42.9); Hemoglobin 8.7 gm/dl (10.1-14.3); Mean Corpuscular HGB Conc 33 % (30-34); Mean Corpuscular Hemoglobin 28 pg (28-32); Mean Corpuscular Volume 86 fl (79-97); Red Blood Count 3.12 M/mm3 (3.65-5.03); Red Cell Distribution Width 23.5 % (13.2-15.2)
[2017-09-04 05:13] LABS: White Blood Count 44.7 K/mm3 (4.5-11.0)
[2017-09-04 06:07] LABS: Anisocytosis 2+; Basophils % (Manual) 0 % (0.0-1.8); Blastocytes % (Manual) 0 %; Eosinophils % (Manual) 0 % (0.0-4.3)
[2017-09-04 06:08] LABS: Diff Status Complete; Platelet Estimate Consistent w Auto; Polychromasia Rare
[2017-09-04 06:39] LABS: Platelet Count 265 K/mm3 (140-440)
[2017-09-04] MEDS ORDERED: NACL 0.9% 500 ML 500 ML ONE (07:08)
[2017-09-04] MEDS: fentaNYL DRIP Premix 2,000 MCG/100 ML BAG IV SCH ×3 (07:16→23:01)
--- NOTE | 2017-09-04 08:25 | Progress Note ---
Assessment and Plan - Patient Problems (1) ESRD (end stage renal disease) on dialysis Current Visit: Yes Status: Acute Plan to address problem: Continue HD on MWF and Isolated UF on TTS. Unable to do UF yesterday since the dialysis catheter was dislodged. Patient will be getting new hemodialysis catheter today. Patient is on TPN. (2) Hyperkalemia Current Visit: Yes Status: Acute Plan to address problem: K level is better. (3) Anemia Current Visit: No Status: Chronic Qualifiers: Anemia type: due to chronic kidney disease Iron deficiency anemia type: I Vitamin B12 deficiency anemia type: V Folate deficiency anemia type: F Bone marrow failure anemia type: B Hemolytic anemia type: H Other causes of anemia: O Chronic kidney disease stage: on chronic dialysis Qualified Code(s ): N18.6 - End stage renal disease; D63.1 - Anemia in chronic kidney disease; Z99.2 - Dependence on renal dialysis Plan to address problem: S/p multiple units of PRBC. Epogen. (4) Hypotension Current Visit: Yes Status: Chronic Qualifiers: Hypotension type: H Trimester: T Plan to address problem: On Levophed. (5) Volume overload Current Visit: Yes Status: Acute Qualifiers: Hypervolemia type: H Plan to address problem: UF as tolerated. (6) Leukocytosis Current Visit: Yes Status: Acute Qualifiers: Leukocytosis type: unspecified Qualified Code(s): D72.829 - Elevated white blood cell count, unspecified (7) Acute respiratory failure with hypoxemia Current Visit: Yes Status: Acute Plan to address problem: On the vent. (8) Sepsis Current Visit: Yes Status: Acute Qualifiers: Sepsis type: S Subjective Date of service: 09/04/17 Principal diagnosis: Interval history: Patient was seen and examined at the bedside. Patient remain intubated. Objective - Vital Signs Vital signs: Vital Signs - 12hr 09/03/17 09/03/17 09/03/17 20:31 20:45 21:01 Temperature Pulse Rate 80 84 81 Pulse Rate [ Throughout] Respiratory 19 17 16 Rate Respiratory Rate [ Throughout] Blood Pressure 110/48 110/48 110/48 O2 Sat by Pulse 100 100 100 Oximetry 09/03/17 09/03/17 09/03/17 21:15 21:31 21:45 Temperature Pulse Rate 79 81 79 Pulse Rate [ Throughout] Respiratory 21 20 20 Rate Respiratory Rate [ Throughout] Blood Pressure 110/48 110/48 110/48 O2 Sat by Pulse 99 100 99 Oximetry 09/03/17 09/03/17 09/03/17 22:00 22:01 22:15 Temperature Pulse Rate 81 81 74 Pulse Rate [ Throughout] Respiratory 18 20 Rate Respiratory Rate [ Throughout] Blood Pressure 110/48 110/48 O2 Sat by Pulse 100 100 Oximetry 09/03/17 09/03/17 09/03/17 22:31 22:45 23:01 Temperature Pulse Rate 78 74 81 Pulse Rate [ Throughout] Respiratory 20 20 17 Rate Respiratory Rate [ Throughout] Blood Pressure 110/48 110/48 110/48 O2 Sat by Pulse 100 100 100 Oximetry 09/03/17 09/03/17 09/03/17 23:03 23:15 23:18 Temperature Pulse Rate 81 78 80 Pulse Rate [ Throughout] Respiratory 20 20 Rate Respiratory Rate [ Throughout] Blood Pressure 110/48 110/48 130/67 O2 Sat by Pulse 100 100 100 Oximetry 09/03/17 09/03/17 09/03/17 23:29 23:31 23:45 Temperature 99.2 F Pulse Rate 76 78 Pulse Rate [ Throughout] Respiratory 20 20 Rate Respiratory Rate [ Throughout] Blood Pressure 110/48 110/48 O2 Sat by Pulse 100 100 Oximetry 09/04/17 09/04/17 09/04/17 00:01 00:15 00:31 Temperature Pulse Rate 80 82 78 Pulse Rate [ Throughout] Respiratory 20 20 20 Rate Respiratory Rate [ Throughout] Blood Pressure 110/48 110/48 110/48 O2 Sat by Pulse 100 100 100 Oximetry 09/04/17 09/04/17 09/04/17 00:45 01:00 01:15 Temperature Pulse Rate 79 85 71 Pulse Rate [ Throughout] Respiratory 17 21 20 Rate Respiratory Rate [ Throughout] Blood Pressure 110/48 110/48 110/48 O2 Sat by Pulse 100 100 100 Oximetry 09/04/17 09/04/17 09/04/17 01:27 01:31 01:37 Temperature Pulse Rate 86 Pulse Rate [ 71 81 Throughout] Respiratory 19 Rate Respiratory 20 20 Rate [ Throughout] Blood Pressure 110/48 O2 Sat by Pulse 100 Oximetry 09/04/17 09/04/17 09/04/17 01:45 02:01 02:15 Temperature Pulse Rate 75 79 80 Pulse Rate [ Throughout] Respiratory 19 20 20 Rate Respiratory Rate [ Throughout] Blood Pressure 110/48 110/48 110/48 O2 Sat by Pulse 100 100 100 Oximetry 09/04/17 09/04/17 09/04/17 02:31 02:45 03:01 Temperature Pulse Rate 70 69 73 Pulse Rate [ Throughout] Respiratory 20 20 20 Rate Respiratory Rate [ Throughout] Blood Pressure 110/48 110/48 110/48 O2 Sat by Pulse 100 100 100 Oximetry 09/04/17 09/04/17 09/04/17 03:08 03:15 03:31 Temperature Pulse Rate 74 77 71 Pulse Rate [ Throughout] Respiratory 20 20 Rate Respiratory Rate [ Throughout] Blood Pressure 122/53 110/48 110/48 O2 Sat by Pulse 100 100 100 Oximetry 09/04/17 09/04/17 09/04/17 03:45 04:00 04:01 Temperature 98.8 F Pulse Rate 77 80 Pulse Rate [ Throughout] Respiratory 13 20 Rate Respiratory Rate [ Throughout] Blood Pressure 110/48 110/48 O2 Sat by Pulse 100 100 Oximetry 09/04/17 09/04/17 09/04/17 04:15 04:30 04:45 Temperature Pulse Rate 76 80 80 Pulse Rate [ Throughout] Respiratory 20 18 20 Rate Respiratory Rate [ Throughout] Blood Pressure 110/48 O2 Sat by Pulse 100 100 100 Oximetry 09/04/17 09/04/17 09/04/17 05:01 05:15 05:31 Temperature Pulse Rate 78 78 77 Pulse Rate [ Throughout] Respiratory 20 19 14 Rate Respiratory Rate [ Throughout] Blood Pressure O2 Sat by Pulse 100 100 99 Oximetry 09/04/17 09/04/17 09/04/17 05:45 06:01 06:15 Temperature Pulse Rate 76 82 79 Pulse Rate [ Throughout] Respiratory 11 L 9 L 14 Rate Respiratory Rate [ Throughout] Blood Pressure O2 Sat by Pulse 100 100 100 Oximetry 09/04/17 09/04/17 09/04/17 06:31 06:45 07:01 Temperature Pulse Rate 82 73 83 Pulse Rate [ Throughout] Respiratory 9 L 11 L 17 Rate Respiratory Rate [ Throughout] Blood Pressure O2 Sat by Pulse 100 100 91 Oximetry 09/04/17 09/04/17 09/04/17 07:15 07:31 07:45 Temperature Pulse Rate 79 76 71 Pulse Rate [ Throughout] Respiratory 9 L 16 11 L Rate Respiratory Rate [ Throughout] Blood Pressure O2 Sat by Pulse 99 98 100 Oximetry 09/04/17 09/04/17 08:01 08:15 Temperature Pulse Rate 83 79 Pulse Rate [ Throughout] Respiratory 14 13 Rate Respiratory Rate [ Throughout] Blood Pressure O2 Sat by Pulse 100 100 Oximetry - General Appearance General appearance: well-developed, appears stated age, obese, intubated EENT: ATNC Neck: supple Respiratory: Present: Other (coarse breath sounds) Cardiology: regular, S1S2, no murmurs Gastrointestinal: normoactive bowel sounds, other (dressing noted) Integumentary: no rash Neurologic: other (obtunded) Musculoskeletal: other (2+ edema of both LEs noted) - Lab 09/04/17 04:32 09/04/17 04:32 Most recent lab results ABG pH 7.415 pH Units (7.350-7.450) 09/04/17 03:47 ABG pCO2 34.6 mm Hg 09/04/17 03:47 ABG pO2 135.0 mm Hg (80.0-90.0) H 09/04/17 03:47 ABG HCO3 21.7 mmol/L (20.0-26.0) 09/04/17 03:47 ABG O2 Saturation 98.7 % (95.0-99.0) 09/04/17 03:47 Calcium 8.3 mg/dL (8.4-10.2) L 09/04/17 04:32 Phosphorus 4.20 mg/dL (2.5-4.5) 09/04/17 04:32 Magnesium 2.20 mg/dL (1.7-2.3) 09/04/17 04:32
--- NOTE | 2017-09-04 09:12 | Progress Note ---
Assessment and Plan POD #4 s/p ex lap, abdominal wash out and abdominal wall closure after wound dehiscence 2 weeks s/p ex lap for gastric perforation and sbo. afebrile, stable with decrease requirements of pressor support. MERVIN: drk blood- likely old clot breaking down. Does not appear fresh. 2 units prbc to be transf. yesterday with proper response. Once hgb stable, rec restarting DVT proph. . will continue wound dressings will continue to wean pressors and vent as tolerated- continue TPN for nutrition, due to her malnutrition, she is having pronounced delay in healing. would not start tube feeds until the integrity of the healing of the stomach perforation is tested. Rec. titrating steroids- pt already at risk for poor wound healing due to multiple co-morbidities and hx of steroids ID: antibx per ID, leukocytosis worsening. rec lr cultures and wound care eval wounds. DVT proph: scds GI: PPI. - Patient Problems (1) Peritonitis (acute) generalized Current Visit: Yes Status: Acute Subjective Narrative: Pt recieved 2 units of prbc yesterday. Pt grimaces with pain. Levo weaned down to 2. HD catheter out of groin as of yesterday. G tube: 925cc bilous (700 of which was recorded overnight?) MERVIN: 285 cc drk blood, thin, does not clot. NG: minimal drk thick bile. Objective Vital Signs - 12hr 09/03/17 09/03/17 09/03/17 21:15 21:31 21:45 Temperature Pulse Rate 79 81 79 Pulse Rate [ Throughout] Respiratory 21 20 20 Rate Respiratory Rate [ Throughout] Blood Pressure 110/48 110/48 110/48 O2 Sat by Pulse 99 100 99 Oximetry 09/03/17 09/03/17 09/03/17 22:00 22:01 22:15 Temperature Pulse Rate 81 81 74 Pulse Rate [ Throughout] Respiratory 18 20 Rate Respiratory Rate [ Throughout] Blood Pressure 110/48 110/48 O2 Sat by Pulse 100 100 Oximetry 09/03/17 09/03/17 09/03/17 22:31 22:45 23:01 Temperature Pulse Rate 78 74 81 Pulse Rate [ Throughout] Respiratory 20 20 17 Rate Respiratory Rate [ Throughout] Blood Pressure 110/48 110/48 110/48 O2 Sat by Pulse 100 100 100 Oximetry 10/09/1009/03/17 09/03/17 23:03 23:15 23:18 Temperature Pulse Rate 81 78 80 Pulse Rate [ Throughout] Respiratory 20 20 Rate Respiratory Rate [ Throughout] Blood Pressure 110/48 110/48 130/67 O2 Sat by Pulse 100 100 100 Oximetry 09/03/17 09/03/17 09/03/17 23:29 23:31 23:45 Temperature 99.2 F Pulse Rate 76 78 Pulse Rate [ Throughout] Respiratory 20 20 Rate Respiratory Rate [ Throughout] Blood Pressure 110/48 110/48 O2 Sat by Pulse 100 100 Oximetry 09/04/17 09/04/17 09/04/17 00:01 00:15 00:31 Temperature Pulse Rate 80 82 78 Pulse Rate [ Throughout] Respiratory 20 20 20 Rate Respiratory Rate [ Throughout] Blood Pressure 110/48 110/48 110/48 O2 Sat by Pulse 100 100 100 Oximetry 09/04/17 09/04/17 09/04/17 00:45 01:00 01:15 Temperature Pulse Rate 79 85 71 Pulse Rate [ Throughout] Respiratory 17 21 20 Rate Respiratory Rate [ Throughout] Blood Pressure 110/48 110/48 110/48 O2 Sat by Pulse 100 100 100 Oximetry 09/04/17 09/04/17 09/04/17 01:27 01:31 01:37 Temperature Pulse Rate 86 Pulse Rate [ 71 81 Throughout] Respiratory 19 Rate Respiratory 20 20 Rate [ Throughout] Blood Pressure 110/48 O2 Sat by Pulse 100 Oximetry 09/04/17 09/04/17 09/04/17 01:45 02:01 02:15 Temperature Pulse Rate 75 79 80 Pulse Rate [ Throughout] Respiratory 19 20 20 Rate Respiratory Rate [ Throughout] Blood Pressure 110/48 110/48 110/48 O2 Sat by Pulse 100 100 100 Oximetry 09/04/17 09/04/17 09/04/17 02:31 02:45 03:01 Temperature Pulse Rate 70 69 73 Pulse Rate [ Throughout] Respiratory 20 20 20 Rate Respiratory Rate [ Throughout] Blood Pressure 110/48 110/48 110/48 O2 Sat by Pulse 100 100 100 Oximetry 09/04/17 09/04/17 09/04/17 03:08 03:15 03:31 Temperature Pulse Rate 74 77 71 Pulse Rate [ Throughout] Respiratory 20 20 Rate Respiratory Rate [ Throughout] Blood Pressure 122/53 110/48 110/48 O2 Sat by Pulse 100 100 100 Oximetry 09/04/17 09/04/17 09/04/17 03:45 04:00 04:01 Temperature 98.8 F Pulse Rate 77 80 Pulse Rate [ Throughout] Respiratory 13 20 Rate Respiratory Rate [ Throughout] Blood Pressure 110/48 110/48 O2 Sat by Pulse 100 100 Oximetry 09/04/17 09/04/17 09/04/17 04:15 04:30 04:45 Temperature Pulse Rate 76 80 80 Pulse Rate [ Throughout] Respiratory 20 18 20 Rate Respiratory Rate [ Throughout] Blood Pressure 110/48 O2 Sat by Pulse 100 100 100 Oximetry 09/04/17 09/04/17 09/04/17 05:01 05:15 05:31 Temperature Pulse Rate 78 78 77 Pulse Rate [ Throughout] Respiratory 20 19 14 Rate Respiratory Rate [ Throughout] Blood Pressure O2 Sat by Pulse 100 100 99 Oximetry 09/04/17 09/04/17 09/04/17 05:45 06:01 06:15 Temperature Pulse Rate 76 82 79 Pulse Rate [ Throughout] Respiratory 11 L 9 L 14 Rate Respiratory Rate [ Throughout] Blood Pressure O2 Sat by Pulse 100 100 100 Oximetry 09/04/17 09/04/17 09/04/17 06:31 06:45 07:01 Temperature Pulse Rate 82 73 83 Pulse Rate [ Throughout] Respiratory 9 L 11 L 17 Rate Respiratory Rate [ Throughout] Blood Pressure O2 Sat by Pulse 100 100 91 Oximetry 09/04/17 09/04/17 09/04/17 07:15 07:31 07:45 Temperature Pulse Rate 79 76 71 Pulse Rate [ Throughout] Respiratory 9 L 16 11 L Rate Respiratory Rate [ Throughout] Blood Pressure O2 Sat by Pulse 99 98 100 Oximetry 09/04/17 09/04/17 09/04/17 08:01 08:15 08:59 Temperature Pulse Rate 83 79 Pulse Rate [ 77 Throughout] Respiratory 14 13 Rate Respiratory 21 Rate [ Throughout] Blood Pressure O2 Sat by Pulse 100 100 Oximetry - General physical appearance no distress - Respiratory normal expansion, other (intubated on vent ) - Abdomen soft, other (midline packing removed. serosang drainage increased from yesterday. fascia intact. repacked midline with kerlex. covered with 4x4s abd pad and tape. MERVIN and G tube in place. Retention sutures in place. grimace with palpation of abd. soft. ) - Neurologic disoriented - Labs 09/04/17 04:32 09/04/17 04:32 Diabetes panel 09/04/17 Range/Units 04:32 Sodium 136 L (137-145) mmol/L Potassium 5.2 H D (3.6-5.0) mmol/L Chloride 94.2 L (98-107) mmol/L Carbon Dioxide 22 (22-30) mmol/L BUN 71 H (7-17) mg/dL Creatinine 2.3 H (0.7-1.2) mg/dL Glucose 235 H (65-100) mg/dL Calcium 8.3 L (8.4-10.2) mg/dL Calcium panel 09/04/17 Range/Units 04:32 Calcium 8.3 L (8.4-10.2) mg/dL Phosphorus 4.20 (2.5-4.5) mg/dL Pituitary panel 09/04/17 Range/Units 04:32 Sodium 136 L (137-145) mmol/L Potassium 5.2 H D (3.6-5.0) mmol/L Chloride 94.2 L (98-107) mmol/L Carbon Dioxide 22 (22-30) mmol/L BUN 71 H (7-17) mg/dL Creatinine 2.3 H (0.7-1.2) mg/dL Glucose 235 H (65-100) mg/dL Calcium 8.3 L (8.4-10.2) mg/dL Adrenal panel 09/04/17 Range/Units 04:32 Sodium 136 L (137-145) mmol/L Potassium 5.2 H D (3.6-5.0) mmol/L Chloride 94.2 L (98-107) mmol/L Carbon Dioxide 22 (22-30) mmol/L BUN 71 H (7-17) mg/dL Creatinine 2.3 H (0.7-1.2) mg/dL Glucose 235 H (65-100) mg/dL Calcium 8.3 L (8.4-10.2) mg/dL
--- NOTE | 2017-09-04 09:37 | Progress Note ---
Assessment and Plan Assessment: 1) Sepsis with septic shock: still on levophed, leukocytosis worsening; new source ? surgical wound infection ? VAP. Initial source bowel obstruction / suspect ?gastric perforation. -CRP= 34 -->30 -->19-->0.1 -procalcitonin=1.3 -->7.6 2) Bowel obstruction / suspect ?gastric perforation ? peritonitis -S/P Exlap, G-tube placement, EGD, abdominal washout and removal of PD -OR findings - bowel obstruction due to entanglement of PD cath, abscess cavity in LUQ and ? suspect perforation of unclear location 3) CA-UTI: chronic ivan exchanged every 4 weeks and ureteral stents in place which are exchanged every 6 months ? urine cultures still pending should r/o MDR bacteria 4) Paraplegia 5) ESRD on PD - no evidence of peritonitis, wbc count 2. 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 6) Recent pancreatitis 7) Penicillin allergy-has taken keflex w/o problems 8) Presumed Surgical wound infection / dehiscence ? 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 colonizer versus VAP Plan: -continue zyvox and fluconazole -taper down IV steroids -monitor leukocytosis -consider repeat imaging if leukoytosis does not improve -check CXR Thank you Dr Baez for your consultation, will follow up with you. Ramya Lang MD Infectious Diseases Specialist [facility] ([facility]) M [phone] O [phone] Subjective Date of service: 09/04/17 Principal diagnosis: septic shock Interval history: Pt remains intubated on the vent on levophed at 2, on TPN, fentanyl, no fever. RT groin vas cath removed by commercial review appraiser / not being in optimal position Microbiology: Blood cultures: 08/08 neg 08/12 neg 08/16 neg 08/20 neg 10/ neg Urine cultures: 08/08 10-100K skin grace Respiratory cultures: 08/30 tracheal asp MRSA Wound cultures: 08/26 Staph aureus and Kristine 08/28 MRSA, E faecalis, Kristine albicans Stool cultures: Other: 08/08 peritoneal fluid + CONTACT LENS LATHE OPERATOR/Diphteroids Current Antimicrobials: zyvox 10/ fluconazole 10/10 Previous Antimicrobials: 08/10 levaquin 08/16 vancomycin 08/13 meropenem 08/16 fluconazole Micafungin 08/29 meropenem 08/29 Objective - Exam Narrative Exam: General appearance: sedated on vent Eyes: anicteric sclerae, moist conjunctivae; no lid-lag; PERRLA HENT: Atraumatic; limited OP ETT, NGT Neck: Trachea midline; supple, no thyromegaly or lymphadenopathy Lungs: coarse BS moreno CV: RRR, no murmurs Abdomen: soft, midline surgical wound with surtures. Gtube. drain Extremities: + peripheral edema + leg ulcer Skin: Normal temperature, turgor and texture; no rash, ulcers or subcutaneous nodules Psych: sedated. Neuro: sedated Lines: / Right IJ Nair 08/16 - Constitutional Vitals: Vital Signs Temp Pulse Resp BP Pulse Ox 98.8 F 79 23 150/147 100 09/04/17 04:00 09/04/17 09:13 09/04/17 09:11 09/04/17 09:13 09/04/17 09:13 Temperature -Last 24 Hours Temperature 98.8 F Temperature 99.2 F Temperature 98.7 F Temperature 97.7 F Temperature 98.5 F Temperature 98 F Temperature 98.3 F Temperature 98.5 F Temperature 98.9 F Temperature 98.8 F Temperature 98.5 F - Labs CBC & Chem 7: 09/04/17 04:32 09/04/17 04:32 Labs: Abnormal lab results 08/31/17 09/03/17 09/03/17 Range/Units 11:56 11:52 16:55 WBC (4.5-11.0) K/mm3 RBC (3.65-5.03) M/mm3 Hgb (10.1-14.3) gm/dl Hct (30.3-42.9) % RDW (13.2-15.2) % Lymphocytes % (Manual) (13.4-35.0) % Nucleated RBC % (0.0-0.9) % Seg Neutrophils # Man (1.8-7.7) K/mm3 Monocytes # (Manual) (0.0-0.8) K/mm3 ABG pO2 (80.0-90.0) mm Hg ABG Base Excess (-2.0-3.0) mmol/L ABG Hemoglobin (12.0-16.0) gm/dl Sodium (137-145) mmol/L Potassium (3.6-5.0) mmol/L Chloride (98-107) mmol/L BUN (7-17) mg/dL Creatinine (0.7-1.2) mg/dL Glucose (65-100) mg/dL POC Glucose 285 H (70-105) Calcium (8.4-10.2) mg/dL Crossmatch See Detail See Detail 09/03/17 09/03/17 09/04/17 Range/Units 17:44 23:56 03:47 WBC (4.5-11.0) K/mm3 RBC (3.65-5.03) M/mm3 Hgb (10.1-14.3) gm/dl Hct (30.3-42.9) % RDW (13.2-15.2) % Lymphocytes % (Manual) (13.4-35.0) % Nucleated RBC % (0.0-0.9) % Seg Neutrophils # Man (1.8-7.7) K/mm3 Monocytes # (Manual) (0.0-0.8) K/mm3 ABG pO2 135.0 H (80.0-90.0) mm Hg ABG Base Excess -2.5 L (-2.0-3.0) mmol/L ABG Hemoglobin 7.9 L (12.0-16.0) gm/dl Sodium (137-145) mmol/L Potassium (3.6-5.0) mmol/L Chloride (98-107) mmol/L BUN (7-17) mg/dL Creatinine (0.7-1.2) mg/dL Glucose (65-100) mg/dL POC Glucose 217 H 193 H (70-105) Calcium (8.4-10.2) mg/dL Crossmatch 09/04/17 09/04/17 09/04/17 Range/Units 04:32 04:32 05:48 WBC 44.7 H* (4.5-11.0) K/mm3 RBC 3.12 L (3.65-5.03) M/mm3 Hgb 8.7 L (10.1-14.3) gm/dl Hct 26.7 L (30.3-42.9) % RDW 23.5 H (13.2-15.2) % Lymphocytes % (Manual) 4.0 L (13.4-35.0) % Nucleated RBC % 2.0 H (0.0-0.9) % Seg Neutrophils # Man 30.8 H (1.8-7.7) K/mm3 Monocytes # (Manual) 2.2 H (0.0-0.8) K/mm3 ABG pO2 (80.0-90.0) mm Hg ABG Base Excess (-2.0-3.0) mmol/L ABG Hemoglobin (12.0-16.0) gm/dl Sodium 136 L (137-145) mmol/L Potassium 5.2 H D (3.6-5.0) mmol/L Chloride 94.2 L (98-107) mmol/L BUN 71 H (7-17) mg/dL Creatinine 2.3 H (0.7-1.2) mg/dL Glucose 235 H (65-100) mg/dL POC Glucose 329 H (70-105) Calcium 8.3 L (8.4-10.2) mg/dL Crossmatch
[2017-09-04] MEDS: LEVEMIR SUB-Q SCH (10:06)
[2017-09-04] MEDS: ZYVOX 600MG/300ML 600 MG/300 ML BAG IV SCH ×2 (10:06→22:56)
[2017-09-04] MEDS: PROTONIX IV SCH ×2 (10:06→22:56)
--- NOTE | 2017-09-04 10:37 | Progress Note ---
Assessment and Plan Assessment and plan: 62 YO Female with MO, ESRD-PD (with PD cath in place )(Daily), HTN, OA, Ischemic Cardiomyopathy currently on Milrinone, Chronic Pain who came to ED with lightheaded and syncope, she c/o abdomnal pain x 2 days, was found to have hypotension, septic shock and intra-abdominal abscess. Sepsis secondary to peritonitis, Intra abdominal abscess and Bowel obstruction - Patient had completed 14 days of meropenem and diflucan - continue abx -ID on board - she has had the following procedures 08/31: Ex lap with abdominal wash out and closure 08/17: Ex lap with G tube placement, EGD, abdominal wash out and removal of PD Cath -taper steroids Acute hypoxic respiratory failure on MV > 96 hours continue ventilator, planned for tracheostomy, has failed extubation multiple times Activity rectal bleeding with severe acute blood loss anemia -EGD showed small gastric ulcer -sp multiple transfusions -- GI consult appreciated - Patient had CTA of abdomen and pelvis no active bleeding - transfuse to keep Hg above 8 given septic shock ESRD -continue HD per renal per femoral HD cath -needs perm cath when improved Septic shock. - continue IV pressors continue abx, ID input appreciated Ulcerative esophagitis/small gastric ulcer on EGD - IV pantoprazole Severe Protein calorie malnutrition - Continue with TPN Sacral and lower extremity wound, POA - continue wound care NSVT likely due to levophed, wean as tolerated cardiology input appreciated --DVT prophylaxis; SCDs - D/C Heparin because of GI bleed Plan of care discussed with the patient's family at bedside Disposition - continue ICU care Prognosis: guarded The high probability of a clinically significant, sudden or life threatening deterioration of the [cv, pulmonary and GI] system(s) required my full and direct attention, intervention and personal management. The aggregate critical care time was [33] minutes. This time is in addition to time spent performing reported procedures but includes the following: [] Data Review and interpretation [] Patient assessment and monitoring of vital signs [] Documentation [] Medication orders and management History Interval history: continues to be intubated, sedated, pressor dependent Hospitalist Physical - Physical exam Narrative exam: General.: Obese HEENT: Moist mucous membranes, extraocular muscles intact, no lymphadenopathy Neck: supple Cardiac: S1-S2 heard Lungs: clear to auscultation bilaterally Abdomen: soft, bowel sounds normal, other (obese, soft, dressing not removed) Extremities: no edema clubbing or cyanosis Skin: no rash or lesions Neurologic: Intubated, obeys commands, arousable - Constitutional Vitals: Temp Pulse Resp BP Pulse Ox 98.5 F 79 23 150/147 100 09/04/17 08:00 09/04/17 09:13 09/04/17 09:11 09/04/17 09:13 09/04/17 09:13 General appearance: Present: well-nourished Results - Labs CBC & Chem 7: 09/04/17 04:32 09/04/17 04:32 Labs: Laboratory Last Values WBC 44.7 K/mm3 (4.5-11.0) H* 09/04/17 04:32 RBC 3.12 M/mm3 (3.65-5.03) L 09/04/17 04:32 Hgb 8.7 gm/dl (10.1-14.3) L 09/04/17 04:32 Hct 26.7 % (30.3-42.9) L 09/04/17 04:32 MCV 86 fl (79-97) 09/04/17 04:32 MCH 28 pg (28-32) 09/04/17 04:32 MCHC 33 % (30-34) 09/04/17 04:32 RDW 23.5 % (13.2-15.2) H 09/04/17 04:32 Plt Count 265 K/mm3 (140-440) 09/04/17 04:32 Lymph % (Auto) Instrumentation And Controls Technician 08/19/17 07:37 [place] % (Auto) Instrumentation And Controls Technician 08/19/17 07:37 Eos % (Auto) Instrumentation And Controls Technician 08/19/17 07:37 Baso % (Auto) Instrumentation And Controls Technician 08/19/17 07:37 Lymph # Instrumentation And Controls Technician 08/19/17 07:37 [place] # Instrumentation And Controls Technician 08/19/17 07:37 Eos # Instrumentation And Controls Technician 08/19/17 07:37 Baso # Instrumentation And Controls Technician 08/19/17 07:37 Add Manual Diff Complete 09/04/17 04:32 Total Counted 100 09/04/17 04:32 Seg Neutrophils % Instrumentation And Controls Technician 08/31/17 18:14 Seg Neuts % (Manual) 69.0 % (40.0-70.0) 09/04/17 04:32 Band Neutrophils % 17.0 % 09/04/17 04:32 Lymphocytes % (Manual) 4.0 % (13.4-35.0) L 09/04/17 04:32 Reactive Lymphs % (Man) 0 % 09/04/17 04:32 Monocytes % (Manual) 5.0 % (0.0-7.3) 09/04/17 04:32 Eosinophils % (Manual) 0 % (0.0-4.3) 09/04/17 04:32 Basophils % (Manual) 0 % (0.0-1.8) 09/04/17 04:32 Metamyelocytes % 5.0 % 09/04/17 04:32 Myelocytes % 0 % 09/04/17 04:32 Promyelocytes % 0 % 09/04/17 04:32 Blast Cells % 0 % 09/04/17 04:32 Nucleated RBC % 2.0 % (0.0-0.9) H 09/04/17 04:32 Seg Neutrophils # Instrumentation And Controls Technician 08/19/17 07:37 Seg Neutrophils # Man 30.8 K/mm3 (1.8-7.7) H 09/04/17 04:32 Band Neutrophils # 7.6 K/mm3 09/04/17 04:32 Lymphocytes # (Manual) 1.8 K/mm3 (1.2-5.4) 09/04/17 04:32 Abs React Lymphs (Man) 0.0 K/mm3 09/04/17 04:32 Monocytes # (Manual) 2.2 K/mm3 (0.0-0.8) H 09/04/17 04:32 Eosinophils # (Manual) 0.0 K/mm3 (0.0-0.4) 09/04/17 04:32 Basophils # (Manual) 0.0 K/mm3 (0.0-0.1) 09/04/17 04:32 Metamyelocytes # 2.2 K/mm3 09/04/17 04:32 Myelocytes # 0.0 K/mm3 09/04/17 04:32 Promyelocytes # 0.0 K/mm3 09/04/17 04:32 Blast Cells # 0.0 K/mm3 09/04/17 04:32 Pathologist Review Not Reportable 08/30/17 05:20 WBC Morphology Not Reportable 09/04/17 04:32 Hypersegmented Neuts Not Reportable 09/04/17 04:32 Hyposegmented Neuts Not Reportable 09/04/17 04:32 Hypogranular Neuts Not Reportable 09/04/17 04:32 Smudge Cells Not Reportable 09/04/17 04:32 Toxic Granulation Not Reportable 09/04/17 04:32 Toxic Vacuolation Not Reportable 09/04/17 04:32 Dohle Bodies Not Reportable 09/04/17 04:32 Pelger-Huet Anomaly Not Reportable 09/04/17 04:32 Ariel Rods Not Reportable 09/04/17 04:32 Platelet Estimate Consistent w auto 09/04/17 04:32 Clumped Platelets Not Reportable 09/04/17 04:32 Plt Clumps, EDTA Not Reportable 09/04/17 04:32 Large Platelets Not Reportable 09/04/17 04:32 Giant Platelets Not Reportable 09/04/17 04:32 Platelet Satelliting Not Reportable 09/04/17 04:32 Plt Morphology Comment Not Reportable 09/04/17 04:32 RBC Morphology Not Reportable 09/04/17 04:32 Dimorphic RBCs Not Reportable 09/04/17 04:32 Polychromasia Rare 09/04/17 04:32 Hypochromasia Not Reportable 09/04/17 04:32 Poikilocytosis Not Reportable 09/04/17 04:32 Anisocytosis 2+ 09/04/17 04:32 Microcytosis Not Reportable 09/04/17 04:32 Macrocytosis Not Reportable 09/04/17 04:32 Spherocytes Not Reportable 09/04/17 04:32 Pappenheimer Bodies Not Reportable 09/04/17 04:32 Sickle Cells Not Reportable 09/04/17 04:32 Target Cells Not Reportable 09/04/17 04:32 Tear Drop Cells Not Reportable 09/04/17 04:32 Ovalocytes Not Reportable 09/04/17 04:32 Stomatocytes Rare 09/01/17 05:00 Helmet Cells Not Reportable 09/04/17 04:32 [place] Bodies Not Reportable 09/04/17 04:32 [place] Rings Not Reportable 09/04/17 04:32 Yusuf Cells Not Reportable 09/04/17 04:32 Bite Cells Not Reportable 09/04/17 04:32 Crenated Cell Not Reportable 09/04/17 04:32 Elliptocytes Not Reportable 09/04/17 04:32 Acanthocytes (Spur) Not Reportable 09/04/17 04:32 Rouleaux Not Reportable 09/04/17 04:32 Hemoglobin C Crystals Not Reportable 09/04/17 04:32 Schistocytes Not Reportable 09/04/17 04:32 Malaria parasites Not Reportable 09/04/17 04:32 Jovanni Bodies Not Reportable 09/04/17 04:32 Hem Pathologist Commnt No 09/04/17 04:32 PT 15.1 Sec. (12.2-14.9) H 08/31/17 18:15 INR 1.13 (0.87-1.13) 08/31/17 18:15 APTT 28.7 Sec. (24.2-36.6) 08/31/17 18:15 POC ABG pH 7.335 (7.35-7.45) L 08/30/17 03:31 ABG pH 7.415 pH Units (7.350-7.450) 09/04/17 03:47 POC ABG pCO2 44.1 (35-45) 08/30/17 03:31 ABG pCO2 34.6 mm Hg 09/04/17 03:47 POC ABG pO2 117 (80-105) H 08/30/17 03:31 ABG pO2 135.0 mm Hg (80.0-90.0) H 09/04/17 03:47 POC ABG HCO3 23.5 08/30/17 03:31 ABG HCO3 21.7 mmol/L (20.0-26.0) 09/04/17 03:47 POC ABG Total CO2 25 08/30/17 03:31 POC ABG O2 Sat 98 08/30/17 03:31 ABG O2 Saturation 98.7 % (95.0-99.0) 09/04/17 03:47 ABG O2 Content 11.1 (0.0-44) 09/04/17 03:47 POC ABG Base Excess -2 08/30/17 03:31 ABG Base Excess -2.5 mmol/L (-2.0-3.0) L 09/04/17 03:47 ABG Hemoglobin 7.9 gm/dl (12.0-16.0) L 09/04/17 03:47 ABG Carboxyhemoglobin 1.9 % (0.0-5.0) 09/04/17 03:47 ABG Methemoglobin 0.5 % (0.0-1.5) 09/04/17 03:47 VBG pH 7.462 (7.320-7.420) H 08/08/17 14:52 Oxyhemoglobin 96.3 % (95.0-99.0) 09/04/17 03:47 FiO2 40 % 09/04/17 03:47 Sodium 136 mmol/L (137-145) L 09/04/17 04:32 Potassium 5.2 mmol/L (3.6-5.0) H D 09/04/17 04:32 Chloride 94.2 mmol/L (98-107) L 09/04/17 04:32 Carbon Dioxide 22 mmol/L (22-30) 09/04/17 04:32 Anion Gap 25 mmol/L 09/04/17 04:32 BUN 71 mg/dL (7-17) H 09/04/17 04:32 Creatinine 2.3 mg/dL (0.7-1.2) H 09/04/17 04:32 Estimated GFR 26 ml/min 09/04/17 04:32 BUN/Creatinine Ratio 31 % 09/04/17 04:32 Glucose 235 mg/dL (65-100) H 09/04/17 04:32 POC Glucose 329 (70-105) H 09/04/17 05:48 Lactic Acid 1.60 mmol/L (0.7-2.0) 08/17/17 11:20 Calcium 8.3 mg/dL (8.4-10.2) L 09/04/17 04:32 Phosphorus 4.20 mg/dL (2.5-4.5) 09/04/17 04:32 Magnesium 2.20 mg/dL (1.7-2.3) 09/04/17 04:32 Total Bilirubin 0.90 mg/dL (0.1-1.2) 09/03/17 04:00 Direct Bilirubin 0.2 mg/dL (0-0.2) 08/08/17 14:11 Indirect Bilirubin 0.3 mg/dL 08/08/17 14:11 AST 40 units/L (5-40) 09/03/17 04:00 ALT 34 units/L (7-56) 09/03/17 04:00 Alkaline Phosphatase 265 units/L (35-129) H 09/03/17 04:00 Ammonia 25.0 umol/L (25-60) 08/08/17 14:52 Troponin T 0.132 ng/mL (0.00-0.029) H* 08/09/17 13:25 C-Reactive Protein 0.10 mg/dL (0.00-1.30) 09/03/17 05:30 NT-Pro-B Natriuret Pep 6156 pg/mL (0-900) H 08/08/17 14:11 Total Protein 4.4 g/dL (6.3-8.2) L 09/03/17 04:00 Albumin 1.7 g/dL (3.9-5) L 09/03/17 04:00 Albumin/Globulin Ratio 0.6 % 09/03/17 04:00 Triglycerides 180 mg/dL (2-149) H 09/03/17 04:00 Cholesterol 91 mg/dL (50-199) 08/08/17 21:23 LDL Cholesterol Direct 53 mg/dL (50-130) 08/08/17 21:23 HDL Cholesterol 26 mg/dL (40-59) L 08/08/17 21:23 Cholesterol/HDL Ratio 3.50 % 08/08/17 21:23 Amylase 45 units/L (27-131) 08/16/17 09:50 Lipase 34 units/L (13-60) 08/16/17 09:50 TSH 6.580 mlU/mL (0.270-4.200) H 08/08/17 14:22 Free T4 1.46 ng/dL (0.76-1.46) 08/08/17 14:22 Total Cortisol 30.1 mcg/dL () 08/13/17 06:14 Urine Color Yellow (Yellow) 08/08/17 20:15 Urine Turbidity Turbid (Clear) 08/08/17 20:15 Urine pH 8.0 (5.0-7.0) H 08/08/17 20:15 Ur Specific [place] 1.015 (1.003-1.030) 08/08/17 20:15 Urine Protein 100 mg/dl mg/dL (Negative) 08/08/17 20:15 Urine Glucose (UA) Neg mg/dL (Negative) 08/08/17 20:15 Urine Ketones Neg mg/dL (Negative) 08/08/17 20:15 Urine Blood Mod (Negative) 08/08/17 20:15 Urine Nitrite Neg (Negative) 08/08/17 20:15 Urine Bilirubin Neg (Negative) 08/08/17 20:15 Urine Urobilinogen < 2.0 mg/dL (<2.0) 08/08/17 20:15 Ur Leukocyte Esterase Lg (Negative) 08/08/17 20:15 Urine WBC (Auto) 24.0 /HPF (0.0-6.0) H 08/08/17 20:15 Urine RBC (Auto) 3.0 /HPF (0.0-6.0) 08/08/17 20:15 U Epithel Cells (Auto) 3.0 /HPF (0-13.0) 08/08/17 20:15 Urine Bacteria (Auto) 4+ /HPF (Negative) 08/08/17 20:15 Urine Mucus 3+ /HPF 08/08/17 20:15 Fluid Type Peritoneal 08/08/17 18:18 Fluid Color Straw 08/08/17 18:18 Fluid Appearance Clear 08/08/17 18:18 Fluid pH 7.74 08/08/17 18:18 Fluid WBC 4 /mm3 08/08/17 18:18 Fluid RBC 1 /mm3 08/08/17 18:18 Fluid Seg Neutrophils 12 % 08/08/17 18:18 Fluid Lymphocytes 0 % 08/08/17 18:18 Fluid Reactive Lymphs 0 % 08/08/17 18:18 Fluid Monocytes 1 % 08/08/17 18:18 Fluid Eosinophils 0 % 08/08/17 18:18 Fluid Basophils 0 % 08/08/17 18:18 Fluid Glucose 315 mg/dL (40-70) H 08/08/17 18:18 Random Vancomycin 19.5 ug/mL (0-40.0) 08/22/17 03:40 Hep Bs Antigen Non-reactive (Negative) 08/22/17 03:40 Hepatitis C Antibody Non-reactive (NonReactive) 08/22/17 03:40 Miscellaneous Test Flexitest 1 H 08/29/17 12:30 Blood Type O POSITIVE 09/03/17 16:55 Antibody Screen TNR 09/03/17 16:55 VAN Antibody Screen Negative 09/03/17 16:55 Crossmatch See Detail 09/03/17 16:55
--- NOTE | 2017-09-04 11:29 | Progress Note ---
Assessment and Plan Assessment: Acute on chronic respiratory failure - for possible trach per pulmonary Hypotension - on levophed UTI / sepsis / septic shock / ? peritonitis / presumed surgical wound infection / recent pancreatitis - ID following POD #3 s/p ex lap, abdominal wash out and abdominal wall closure after wound dehiscence 2 weeks s/p ex lap for gastric perforation and sbo. - surgery following Elevated troponin ESRD - was on PD at home, now on HD RLE wound/abscess History of cervical surgery and postoperative complications, wheelchair bound since then / Autonomic dysfunction Morbid obesity NSVT anemia - for PRBC tx Plan: No NSVT noted on tele overnight. Cont to wean levophed as tolerated. Nothing further to add from cardiac perspective at this time. Will see on as needed basis. The patient has been seen in conjunction with Dr. Pineda who agrees with the assessment and plan of care. Subjective Date of service: 09/04/17 Principal diagnosis: septic shock Interval history: Pt resting in bed, intubated, nonresponsive. No NSVT noted on tele overnight. Levophed gtt infusing and is being weaned successfully. Objective Last Vital Signs Temp 98.5 F 09/04/17 08:00 Pulse 79 09/04/17 09:13 Resp 23 09/04/17 09:11 BP 150/147 09/04/17 09:13 Pulse Ox 100 09/04/17 09:13 - Physical Examination General: Appears Well, No Apparent Distress HEENT: Positive: EOMI, Normocephaly, Mucus Membranes Moist Neck: Positive: neck supple Cardiac: Positive: Reg Rate and Rhythm, S1/S2 Lungs: Positive: Decreased Breath Sounds, Ventilated Respirations Neuro: Positive: Other (right lower extremity weakness) Abdomen: Positive: Soft, Active Bowel Sounds, Tender (mildly tender) Skin: Positive: Clear. Negative: Rash Musculoskeletal: Normal Range of Motion Extremities: Absent: edema - Labs and Meds CBC 09/04/17 Range/Units 04:32 WBC 44.7 H* (4.5-11.0) K/mm3 RBC 3.12 L (3.65-5.03) M/mm3 Hgb 8.7 L (10.1-14.3) gm/dl Hct 26.7 L (30.3-42.9) % Plt Count 265 (140-440) K/mm3 Comprehensive Metabolic Panel 10/11/17 Range/Units 04:32 Sodium 136 L (137-145) mmol/L Potassium 5.2 H D (3.6-5.0) mmol/L Chloride 94.2 L (98-107) mmol/L Carbon Dioxide 22 (22-30) mmol/L BUN 71 H (7-17) mg/dL Creatinine 2.3 H (0.7-1.2) mg/dL Glucose 235 H (65-100) mg/dL Calcium 8.3 L (8.4-10.2) mg/dL - Imaging and Cardiology EKG: image reviewed Echo: report reviewed (EF 55-60%, trace MR, trace TR) - EKG Sinus rhythms and dysrhythmias: sinus rhythm Repolarization changes or abnormalities: ST or T wave suggestive of ischemia
--- NOTE | 2017-09-04 13:13 | Operative Report ---
Operative Report Operative Report: Procedure: 1. Right internal jugular non-tunneled dialysis catheter placement 2. Ultrasound guided puncture of the right internal jugular vein. 3. Ultrasound guided placement of a peripheral IV into the right basilic vein. Date: 09/04/2017 Physician: Roni Lopez MD Indication: 62 year old female with renal failure, in need of dialysis. Technique: The patient was placed in the supine position and prepped and draped in the usual sterile fashion. A timeout was performed. Local anesthetic was administered. Under direct ultrasound guidance, the right internal jugular vein was accessed with an 18-gauge needle. An .035 wire was advanced. After serial tissue dilation, the dialysis catheter was advanced over the wire. Vacuum aspiration and flushing was performed. Each lumen was instilled with heparin. The catheter was secured to the skin with 2-0 Ethilon suture. Sterile dressings were placed, and the patient was transported from the procedure area in stable condition. Findings: 1. Ultrasound demonstrates a patent and compressible right internal jugular vein. 2. There is successful placement of a 15 cm non-tunneled dialysis catheter via the right internal jugular vein. 3. Each lumen flushes and aspirates briskly. 4. Positioning of the catheter tip within the right atrium will be confirmed by Xray. 5. The right basilic vein is patent and compressible. 6. There was successful placement of a 20-gauge peripheral IV into the basilic vein.
--- NOTE | 2017-09-04 13:16 | XRay Report ---
Portable chest: Tube placement. Comparison is made to the prior study of September 04. In addition to the right jugular central venous line a second catheter has been placed via the same route. The tip is in the mid SVC. An endotracheal tube is well-positioned. A nasogastric tube tip has been withdrawn from its previous position and currently overlies the lower margin of the endotracheal tube. The lungs remain clear of any overt infiltrate but there may be persistent mild vascular congestion. Impression: Well-positioned Vas-Cath. Other life support tubes as described.
--- NOTE | 2017-09-04 13:20 | XRay Report ---
Portable chest: Clinical change in pulmonary status for evaluation of pneumonia. Comparison is made to the prior study of August 30. The previously noted well-positioned nasogastric tube appears to have been withdrawn to the midesophagus region. The endotracheal tube and right jugular central venous lines are unchanged and good positions. Focal areas of linear atelectasis or scar are present at the right lung base and mild patchy changes at the left lung base. These appear generally unchanged. Impression: No acute pulmonary findings. Poorly positioned nasogastric tube.
--- NOTE | 2017-09-04 13:23 | Progress Note ---
Assessment and Plan 62 y/o female originally admitted with hypotension, now back to ICU secondary to worsening hypotension, concern for sepsis, with acute respiratory failure post-op from ex-lap for abdominal distention and possible ileus, now back from OR after worsening respiratory failure, requiring re-intubation and wash out of abdomen 1. Family is agreeable to trach. Will discuss with CM in regards to where this will take place rather here or at the LTACH. Family has agreed to LTACH placement as well. However, suggest that LTACH be firmly aware of abdominal issues and have surgery there that is willing to follow. 2. HD per renal 3. Continue PSV trials as tolerated. 4. Abx therapy as previously ordered per ID. 5. Wean levo for MAPS >60, have not been able to come off as she drops immediately. 6. Called by IMS in regards to surgery and ID which I have spoken to surgery. Will change steroids to 50q8 and attempt to wean. Overall prognosis is guarded to poor CCT 31 Subjective Date of service: 09/04/17 Principal diagnosis: septic shock Interval history: Daughter has agreed to trach. Consulting surgery today. White count continues to fluctuate. Afebrile. Had vas cath placed this am. Objective Vital Signs - 12hr 09/04/17 09/04/17 09/04/17 01:27 01:31 01:37 Temperature Pulse Rate 86 Pulse Rate [ 71 81 Throughout] Respiratory 19 Rate Respiratory 20 20 Rate [ Throughout] Blood Pressure 110/48 O2 Sat by Pulse 100 Oximetry 09/04/17 09/04/17 09/04/17 01:45 02:01 02:15 Temperature Pulse Rate 75 79 80 Pulse Rate [ Throughout] Respiratory 19 20 20 Rate Respiratory Rate [ Throughout] Blood Pressure 110/48 110/48 110/48 O2 Sat by Pulse 100 100 100 Oximetry 09/04/17 09/04/17 09/04/17 02:31 02:45 03:01 Temperature Pulse Rate 70 69 73 Pulse Rate [ Throughout] Respiratory 20 20 20 Rate Respiratory Rate [ Throughout] Blood Pressure 110/48 110/48 110/48 O2 Sat by Pulse 100 100 100 Oximetry 09/04/17 09/04/17 09/04/17 03:08 03:15 03:31 Temperature Pulse Rate 74 77 71 Pulse Rate [ Throughout] Respiratory 20 20 Rate Respiratory Rate [ Throughout] Blood Pressure 122/53 110/48 110/48 O2 Sat by Pulse 100 100 100 Oximetry 09/04/17 09/04/17 09/04/17 03:45 04:00 04:01 Temperature 98.8 F Pulse Rate 77 80 Pulse Rate [ Throughout] Respiratory 13 20 Rate Respiratory Rate [ Throughout] Blood Pressure 110/48 110/48 O2 Sat by Pulse 100 100 Oximetry 09/04/17 09/04/17 09/04/17 04:15 04:30 04:45 Temperature Pulse Rate 76 80 80 Pulse Rate [ Throughout] Respiratory 20 18 20 Rate Respiratory Rate [ Throughout] Blood Pressure 110/48 O2 Sat by Pulse 100 100 100 Oximetry 09/04/17 09/04/17 09/04/17 05:01 05:15 05:31 Temperature Pulse Rate 78 78 77 Pulse Rate [ Throughout] Respiratory 20 19 14 Rate Respiratory Rate [ Throughout] Blood Pressure O2 Sat by Pulse 100 100 99 Oximetry 09/04/17 09/04/17 09/04/17 05:45 06:01 06:15 Temperature Pulse Rate 76 82 79 Pulse Rate [ Throughout] Respiratory 11 L 9 L 14 Rate Respiratory Rate [ Throughout] Blood Pressure O2 Sat by Pulse 100 100 100 Oximetry 09/04/17 09/04/17 09/04/17 06:31 06:45 07:01 Temperature Pulse Rate 82 73 83 Pulse Rate [ Throughout] Respiratory 9 L 11 L 17 Rate Respiratory Rate [ Throughout] Blood Pressure O2 Sat by Pulse 100 100 91 Oximetry 09/04/17 09/04/17 09/04/17 07:15 07:31 07:45 Temperature Pulse Rate 79 76 71 Pulse Rate [ Throughout] Respiratory 9 L 16 11 L Rate Respiratory Rate [ Throughout] Blood Pressure O2 Sat by Pulse 99 98 100 Oximetry 09/04/17 09/04/17 09/04/17 08:00 08:01 08:15 Temperature 98.5 F Pulse Rate 83 79 Pulse Rate [ Throughout] Respiratory 14 13 Rate Respiratory Rate [ Throughout] Blood Pressure O2 Sat by Pulse 100 100 Oximetry 09/04/17 09/04/17 09/04/17 08:59 09:11 09:13 Temperature Pulse Rate 79 Pulse Rate [ 77 74 Throughout] Respiratory Rate Respiratory 21 23 Rate [ Throughout] Blood Pressure 150/147 O2 Sat by Pulse 100 Oximetry 09/04/17 13:12 Temperature Pulse Rate 90 Pulse Rate [ Throughout] Respiratory Rate Respiratory Rate [ Throughout] Blood Pressure 111/51 O2 Sat by Pulse 100 Oximetry Constitutional: other (critically ill on vent, obese) Eyes: non-icteric ENT: oropharynx moist, other (NGT) Neck: supple, no lymphadenopathy Effort: mildly labored Ascultation: Bilateral: diminished breath sounds, wheezes (faint expiratory wheezes) Cardiovascular: regular rate and rhythm Gastrointestinal: absent bowel sounds, non-tender, other (abdominal incision with new dressing noted, obese) Integumentary: normal Extremities: no cyanosis, pink and warm, edema (3+ bilateral LE edema) Neurologic: non-focal exam, pupils equal and round, other (somnolent) Psychiatric: mood appropriate, affect normal CBC and BMP: 09/04/17 04:32 09/04/17 04:32 ABG, PT/INR, D-dimer: ABG POC ABG pH 7.335 (7.35-7.45) L 08/30/17 03:31 ABG pH 7.415 pH Units (7.350-7.450) 09/04/17 03:47 POC ABG pCO2 44.1 (35-45) 08/30/17 03:31 ABG pCO2 34.6 mm Hg 09/04/17 03:47 POC ABG pO2 117 (80-105) H 08/30/17 03:31 ABG pO2 135.0 mm Hg (80.0-90.0) H 09/04/17 03:47 POC ABG HCO3 23.5 08/30/17 03:31 POC ABG Total CO2 25 08/30/17 03:31 POC ABG O2 Sat 98 08/30/17 03:31 ABG O2 Saturation 98.7 % (95.0-99.0) 09/04/17 03:47 PT/INR, D-dimer PT 15.1 Sec. (12.2-14.9) H 08/31/17 18:15 INR 1.13 (0.87-1.13) 08/31/17 18:15 Abnormal lab findings: Abnormal Labs 08/08/17 08/08/17 08/09/17 21:23 21:31 11:19 WBC 15.7 H RBC 2.93 L Hgb 8.7 L Hct 26.8 L MCV MCH RDW 19.2 H Plt Count Lymph % (Auto) [place] % (Auto) [place] # Seg Neutrophils % Seg Neuts % (Manual) Lymphocytes % (Manual) Monocytes % (Manual) Nucleated RBC % Seg Neutrophils # Seg Neutrophils # Man Lymphocytes # (Manual) Monocytes # (Manual) Eosinophils # (Manual) Basophils # (Manual) PT INR POC ABG pH 7.490 H ABG pH POC ABG pCO2 POC ABG pO2 122 H ABG pO2 ABG Base Excess ABG Hemoglobin Sodium Potassium Chloride Carbon Dioxide BUN Creatinine Glucose POC Glucose Calcium Phosphorus Magnesium AST ALT Alkaline Phosphatase Troponin T 0.133 H* C-Reactive Protein Total Protein Albumin Triglycerides HDL Cholesterol 26 L Miscellaneous Test Crossmatch 08/09/17 08/10/17 08/10/17 13:25 04:45 04:45 WBC 15.5 H RBC 2.97 L Hgb 8.9 L Hct 27.0 L MCV MCH RDW 19.2 H Plt Count Lymph % (Auto) [place] % (Auto) [place] # Seg Neutrophils % Seg Neuts % (Manual) 73.0 H Lymphocytes % (Manual) 7.0 L Monocytes % (Manual) 14.0 H Nucleated RBC % Seg Neutrophils # Seg Neutrophils # Man 11.3 H Lymphocytes # (Manual) 1.1 L Monocytes # (Manual) 2.2 H Eosinophils # (Manual) Basophils # (Manual) 0.2 H PT INR POC ABG pH ABG pH POC ABG pCO2 POC ABG pO2 ABG pO2 ABG Base Excess ABG Hemoglobin Sodium Potassium 3.3 L Chloride 97.3 L Carbon Dioxide 21 L BUN 23 H Creatinine 6.5 H Glucose POC Glucose Calcium 7.3 L Phosphorus Magnesium AST ALT Alkaline Phosphatase 138 H Troponin T 0.132 H* C-Reactive Protein Total Protein 4.8 L Albumin 1.4 L Triglycerides HDL Cholesterol Miscellaneous Test Crossmatch 08/11/17 08/11/17 08/12/17 04:00 04:00 05:50 WBC 19.3 H RBC 3.10 L Hgb 9.5 L Hct 28.2 L MCV MCH RDW 19.2 H Plt Count 463 H Lymph % (Auto) 7.5 L [place] % (Auto) 14.6 H [place] # 2.8 H Seg Neutrophils % 77.0 H Seg Neuts % (Manual) Lymphocytes % (Manual) Monocytes % (Manual) Nucleated RBC % Seg Neutrophils # 14.8 H Seg Neutrophils # Man Lymphocytes # (Manual) Monocytes # (Manual) Eosinophils # (Manual) Basophils # (Manual) PT INR POC ABG pH ABG pH POC ABG pCO2 POC ABG pO2 ABG pO2 ABG Base Excess ABG Hemoglobin Sodium 136 L 136 L Potassium 3.3 L Chloride 96.3 L 96.6 L Carbon Dioxide BUN 26 H 26 H Creatinine 6.4 H 6.2 H Glucose 135 H 133 H POC Glucose Calcium 8.2 L Phosphorus Magnesium 1.30 L AST ALT Alkaline Phosphatase 139 H Troponin T C-Reactive Protein Total Protein 5.5 L Albumin 1.7 L Triglycerides HDL Cholesterol Miscellaneous Test Crossmatch 08/12/17 08/12/17 08/12/17 05:50 05:50 05:50 WBC 20.1 H RBC 3.06 L Hgb 9.3 L Hct 27.9 L MCV MCH RDW 18.4 H Plt Count 471 H Lymph % (Auto) [place] % (Auto) [place] # Seg Neutrophils % Seg Neuts % (Manual) 85.0 H Lymphocytes % (Manual) 8.0 L Monocytes % (Manual) Nucleated RBC % Seg Neutrophils # Seg Neutrophils # Man 17.1 H Lymphocytes # (Manual) Monocytes # (Manual) 1.0 H Eosinophils # (Manual) Basophils # (Manual) PT 15.2 H INR 1.14 H POC ABG pH ABG pH POC ABG pCO2 POC ABG pO2 ABG pO2 ABG Base Excess ABG Hemoglobin Sodium Potassium Chloride Carbon Dioxide BUN Creatinine Glucose POC Glucose Calcium Phosphorus Magnesium AST ALT Alkaline Phosphatase Troponin T C-Reactive Protein 28.90 H Total Protein Albumin Triglycerides HDL Cholesterol Miscellaneous Test Crossmatch 08/12/17 08/13/17 08/13/17 16:23 06:14 06:14 WBC 21.8 H RBC 3.11 L Hgb 9.4 L Hct 28.2 L MCV MCH RDW 18.2 H Plt Count 492 H Lymph % (Auto) [place] % (Auto) [place] # Seg Neutrophils % Seg Neuts % (Manual) 73.0 H Lymphocytes % (Manual) 2.0 L Monocytes % (Manual) 15 H Nucleated RBC % Seg Neutrophils # Seg Neutrophils # Man 15.9 H Lymphocytes # (Manual) 0.4 L Monocytes # (Manual) 2.4 H Eosinophils # (Manual) Basophils # (Manual) PT INR POC ABG pH ABG pH POC ABG pCO2 POC ABG pO2 ABG pO2 ABG Base Excess ABG Hemoglobin Sodium Potassium Chloride 96.2 L Carbon Dioxide BUN 28 H Creatinine 5.6 H Glucose 114 H POC Glucose Calcium Phosphorus Magnesium AST ALT Alkaline Phosphatase Troponin T C-Reactive Protein 26.10 H Total Protein Albumin Triglycerides HDL Cholesterol Miscellaneous Test Crossmatch 08/13/17 08/14/17 08/14/17 16:39 04:00 04:00 WBC 22.1 H RBC 3.25 L Hgb 9.9 L Hct 29.5 L MCV MCH RDW 17.9 H Plt Count 525 H Lymph % (Auto) [place] % (Auto) [place] # Seg Neutrophils % Seg Neuts % (Manual) 74.0 H Lymphocytes % (Manual) 8.0 L Monocytes % (Manual) 12.0 H Nucleated RBC % Seg Neutrophils # Seg Neutrophils # Man 16.4 H Lymphocytes # (Manual) Monocytes # (Manual) 2.7 H Eosinophils # (Manual) Basophils # (Manual) PT INR POC ABG pH ABG pH POC ABG pCO2 POC ABG pO2 ABG pO2 ABG Base Excess ABG Hemoglobin Sodium 134 L Potassium 3.3 L Chloride 93.3 L Carbon Dioxide BUN 27 H Creatinine 6.0 H Glucose 152 H POC Glucose 151 H Calcium Phosphorus Magnesium AST ALT Alkaline Phosphatase Troponin T C-Reactive Protein Total Protein Albumin Triglycerides HDL Cholesterol Miscellaneous Test Crossmatch 08/15/17 08/16/17 08/16/17 09:10 09:50 09:50 WBC 31.1 H RBC 3.21 L Hgb 9.6 L Hct 29.3 L MCV MCH RDW 18.1 H Plt Count 642 H Lymph % (Auto) [place] % (Auto) [place] # Seg Neutrophils % Seg Neuts % (Manual) 74.0 H Lymphocytes % (Manual) 4.0 L Monocytes % (Manual) 9.0 H Nucleated RBC % Seg Neutrophils # Seg Neutrophils # Man 23.0 H Lymphocytes # (Manual) Monocytes # (Manual) 2.8 H Eosinophils # (Manual) Basophils # (Manual) PT INR POC ABG pH ABG pH POC ABG pCO2 POC ABG pO2 ABG pO2 ABG Base Excess ABG Hemoglobin Sodium 136 L 136 L Potassium 3.5 L Chloride 97.6 L 94.9 L Carbon Dioxide BUN 27 H 28 H Creatinine 5.6 H 5.5 H Glucose 117 H 103 H POC Glucose Calcium Phosphorus Magnesium AST ALT Alkaline Phosphatase 137 H Troponin T C-Reactive Protein Total Protein 5.4 L Albumin 1.5 L Triglycerides HDL Cholesterol Miscellaneous Test Crossmatch 08/16/17 08/17/17 08/17/17 09:50 05:00 06:26 WBC RBC Hgb Hct MCV MCH RDW Plt Count Lymph % (Auto) [place] % (Auto) [place] # Seg Neutrophils % Seg Neuts % (Manual) Lymphocytes % (Manual) Monocytes % (Manual) Nucleated RBC % Seg Neutrophils # Seg Neutrophils # Man Lymphocytes # (Manual) Monocytes # (Manual) Eosinophils # (Manual) Basophils # (Manual) PT INR POC ABG pH ABG pH POC ABG pCO2 POC ABG pO2 ABG pO2 ABG Base Excess ABG Hemoglobin Sodium 134 L Potassium 3.0 L Chloride 97.8 L Carbon Dioxide BUN 30 H Creatinine 5.3 H Glucose 147 H POC Glucose 165 H Calcium 7.5 L Phosphorus Magnesium AST ALT Alkaline Phosphatase Troponin T C-Reactive Protein 32.30 H Total Protein Albumin Triglycerides HDL Cholesterol Miscellaneous Test Crossmatch 08/17/17 08/17/17 08/17/17 10:56 11:20 11:20 WBC 39.1 H RBC 3.10 L Hgb 9.2 L Hct 28.6 L MCV MCH RDW 18.3 H Plt Count 580 H Lymph % (Auto) [place] % (Auto) [place] # Seg Neutrophils % Seg Neuts % (Manual) 89.5 H Lymphocytes % (Manual) 3.5 L Monocytes % (Manual) Nucleated RBC % Seg Neutrophils # Seg Neutrophils # Man 35.0 H Lymphocytes # (Manual) Monocytes # (Manual) 2.5 H Eosinophils # (Manual) Basophils # (Manual) 0.2 H PT INR POC ABG pH 7.464 H ABG pH POC ABG pCO2 34.1 L POC ABG pO2 75 L ABG pO2 ABG Base Excess ABG Hemoglobin Sodium Potassium Chloride Carbon Dioxide BUN Creatinine Glucose POC Glucose Calcium Phosphorus Magnesium AST ALT Alkaline Phosphatase Troponin T C-Reactive Protein Total Protein Albumin Triglycerides HDL Cholesterol Miscellaneous Test Flexitest 1 H Crossmatch 08/17/17 08/17/17 08/17/17 11:20 16:57 20:20 WBC 34.4 H RBC 2.81 L Hgb 8.4 L Hct 26.0 L MCV MCH RDW 17.8 H Plt Count 455 H Lymph % (Auto) [place] % (Auto) [place] # Seg Neutrophils % Seg Neuts % (Manual) Lymphocytes % (Manual) 3.5 L Monocytes % (Manual) Nucleated RBC % 5.0 H Seg Neutrophils # Seg Neutrophils # Man 16.5 H Lymphocytes # (Manual) Monocytes # (Manual) 1.0 H Eosinophils # (Manual) Basophils # (Manual) PT 16.0 H INR 1.29 H POC ABG pH ABG pH POC ABG pCO2 POC ABG pO2 ABG pO2 ABG Base Excess ABG Hemoglobin Sodium 135 L Potassium 2.9 L* Chloride Carbon Dioxide 20 L BUN 32 H Creatinine 5.4 H Glucose 129 H POC Glucose Calcium 7.5 L Phosphorus Magnesium 1.50 L AST 85 H ALT Alkaline Phosphatase Troponin T C-Reactive Protein Total Protein 4.0 L D Albumin 1.6 L Triglycerides HDL Cholesterol Miscellaneous Test Crossmatch 08/17/17 08/17/17 08/18/17 20:54 23:47 04:26 WBC RBC Hgb Hct MCV MCH RDW Plt Count Lymph % (Auto) [place] % (Auto) [place] # Seg Neutrophils % Seg Neuts % (Manual) Lymphocytes % (Manual) Monocytes % (Manual) Nucleated RBC % Seg Neutrophils # Seg Neutrophils # Man Lymphocytes # (Manual) Monocytes # (Manual) Eosinophils # (Manual) Basophils # (Manual) PT INR POC ABG pH 7.557 H ABG pH POC ABG pCO2 23.1 L 29.0 L POC ABG pO2 187 H 148 H ABG pO2 ABG Base Excess ABG Hemoglobin Sodium Potassium Chloride Carbon Dioxide BUN Creatinine Glucose POC Glucose 188 H Calcium Phosphorus Magnesium AST ALT Alkaline Phosphatase Troponin T C-Reactive Protein Total Protein Albumin Triglycerides HDL Cholesterol Miscellaneous Test Crossmatch 08/18/17 08/18/17 08/18/17 05:51 11:44 17:07 WBC RBC Hgb Hct MCV MCH RDW Plt Count Lymph % (Auto) [place] % (Auto) [place] # Seg Neutrophils % Seg Neuts % (Manual) Lymphocytes % (Manual) Monocytes % (Manual) Nucleated RBC % Seg Neutrophils # Seg Neutrophils # Man Lymphocytes # (Manual) Monocytes # (Manual) Eosinophils # (Manual) Basophils # (Manual) PT INR POC ABG pH ABG pH POC ABG pCO2 POC ABG pO2 ABG pO2 ABG Base Excess ABG Hemoglobin Sodium Potassium Chloride Carbon Dioxide BUN Creatinine Glucose POC Glucose 202 H 195 H 182 H Calcium Phosphorus Magnesium AST ALT Alkaline Phosphatase Troponin T C-Reactive Protein Total Protein Albumin Triglycerides HDL Cholesterol Miscellaneous Test Crossmatch 08/18/17 08/18/17 08/18/17 23:45 Unknown Unknown WBC 39.0 H RBC 2.84 L Hgb 8.4 L Hct 26.5 L MCV MCH RDW 18.0 H Plt Count 476 H Lymph % (Auto) [place] % (Auto) [place] # Seg Neutrophils % Seg Neuts % (Manual) Lymphocytes % (Manual) 7.0 L Monocytes % (Manual) 10.0 H Nucleated RBC % 3.0 H Seg Neutrophils # Seg Neutrophils # Man 15.6 H Lymphocytes # (Manual) Monocytes # (Manual) 3.9 H Eosinophils # (Manual) Basophils # (Manual) PT INR POC ABG pH ABG pH POC ABG pCO2 POC ABG pO2 ABG pO2 ABG Base Excess ABG Hemoglobin Sodium Potassium Chloride Carbon Dioxide 19 L BUN 34 H Creatinine 5.6 H Glucose 201 H POC Glucose 163 H Calcium 7.8 L Phosphorus 1.90 L D Magnesium 1.60 L AST ALT Alkaline Phosphatase Troponin T C-Reactive Protein Total Protein Albumin Triglycerides HDL Cholesterol Miscellaneous Test Crossmatch 08/19/17 08/19/17 08/19/17 04:18 05:00 05:00 WBC 40.0 H RBC 2.46 L Hgb 7.3 L Hct 22.6 L MCV MCH RDW 18.1 H Plt Count Lymph % (Auto) [place] % (Auto) [place] # Seg Neutrophils % Seg Neuts % (Manual) Lymphocytes % (Manual) 8.0 L Monocytes % (Manual) Nucleated RBC % 2.0 H Seg Neutrophils # Seg Neutrophils # Man 16.4 H Lymphocytes # (Manual) Monocytes # (Manual) 1.2 H Eosinophils # (Manual) 1.2 H Basophils # (Manual) PT INR POC ABG pH 7.463 H ABG pH POC ABG pCO2 29.7 L POC ABG pO2 134 H ABG pO2 ABG Base Excess ABG Hemoglobin Sodium Potassium 5.1 H D Chloride Carbon Dioxide 20 L BUN 40 H Creatinine 5.3 H Glucose 128 H POC Glucose Calcium 7.8 L Phosphorus 1.90 L Magnesium AST ALT Alkaline Phosphatase Troponin T C-Reactive Protein Total Protein Albumin Triglycerides HDL Cholesterol Miscellaneous Test Crossmatch 08/19/17 08/19/17 08/19/17 05:19 07:37 09:52 WBC 45.0 H* RBC 2.50 L Hgb 7.5 L Hct 24.5 L MCV 98 H MCH RDW 18.4 H Plt Count Lymph % (Auto) [place] % (Auto) [place] # Seg Neutrophils % Seg Neuts % (Manual) 81.5 H Lymphocytes % (Manual) 4.0 L Monocytes % (Manual) Nucleated RBC % 1.0 H Seg Neutrophils # Seg Neutrophils # Man 36.7 H Lymphocytes # (Manual) Monocytes # (Manual) Eosinophils # (Manual) Basophils # (Manual) PT INR POC ABG pH ABG pH POC ABG pCO2 POC ABG pO2 ABG pO2 ABG Base Excess ABG Hemoglobin Sodium Potassium Chloride Carbon Dioxide BUN Creatinine Glucose POC Glucose 142 H Calcium Phosphorus Magnesium AST ALT Alkaline Phosphatase Troponin T C-Reactive Protein 34.20 H Total Protein Albumin Triglycerides HDL Cholesterol Miscellaneous Test Crossmatch 08/19/17 08/19/17 08/20/17 11:16 18:12 00:35 WBC RBC Hgb Hct MCV MCH RDW Plt Count Lymph % (Auto) [place] % (Auto) [place] # Seg Neutrophils % Seg Neuts % (Manual) Lymphocytes % (Manual) Monocytes % (Manual) Nucleated RBC % Seg Neutrophils # Seg Neutrophils # Man Lymphocytes # (Manual) Monocytes # (Manual) Eosinophils # (Manual) Basophils # (Manual) PT INR POC ABG pH ABG pH POC ABG pCO2 POC ABG pO2 ABG pO2 ABG Base Excess ABG Hemoglobin Sodium Potassium Chloride Carbon Dioxide BUN Creatinine Glucose POC Glucose 143 H 137 H 164 H Calcium Phosphorus Magnesium AST ALT Alkaline Phosphatase Troponin T C-Reactive Protein Total Protein Albumin Triglycerides HDL Cholesterol Miscellaneous Test Crossmatch 08/20/17 08/20/17 08/20/17 03:20 03:20 04:00 WBC 48.0 H* RBC 2.55 L Hgb 7.6 L Hct 23.4 L MCV MCH RDW 18.4 H Plt Count Lymph % (Auto) [place] % (Auto) [place] # Seg Neutrophils % Seg Neuts % (Manual) 90.0 H Lymphocytes % (Manual) 3.0 L Monocytes % (Manual) Nucleated RBC % Seg Neutrophils # Seg Neutrophils # Man 43.2 H Lymphocytes # (Manual) Monocytes # (Manual) 1.4 H Eosinophils # (Manual) 0.5 H Basophils # (Manual) PT INR POC ABG pH 7.499 H ABG pH POC ABG pCO2 29.1 L POC ABG pO2 ABG pO2 ABG Base Excess ABG Hemoglobin Sodium 135 L Potassium Chloride Carbon Dioxide BUN 28 H Creatinine 4.0 H Glucose 140 H POC Glucose Calcium 8.0 L Phosphorus 1.70 L Magnesium 1.60 L AST ALT Alkaline Phosphatase Troponin T C-Reactive Protein Total Protein Albumin Triglycerides HDL Cholesterol Miscellaneous Test Crossmatch 08/20/17 08/20/17 08/20/17 05:02 12:05 13:12 WBC RBC Hgb Hct MCV MCH RDW Plt Count Lymph % (Auto) [place] % (Auto) [place] # Seg Neutrophils % Seg Neuts % (Manual) Lymphocytes % (Manual) Monocytes % (Manual) Nucleated RBC % Seg Neutrophils # Seg Neutrophils # Man Lymphocytes # (Manual) Monocytes # (Manual) Eosinophils # (Manual) Basophils # (Manual) PT INR POC ABG pH 7.537 H ABG pH POC ABG pCO2 27.9 L POC ABG pO2 79 L ABG pO2 ABG Base Excess ABG Hemoglobin Sodium Potassium Chloride Carbon Dioxide BUN Creatinine Glucose POC Glucose 158 H 203 H Calcium Phosphorus Magnesium AST ALT Alkaline Phosphatase Troponin T C-Reactive Protein Total Protein Albumin Triglycerides HDL Cholesterol Miscellaneous Test Crossmatch 08/20/17 08/21/17 08/21/17 17:13 00:47 03:14 WBC RBC Hgb Hct MCV MCH RDW Plt Count Lymph % (Auto) [place] % (Auto) [place] # Seg Neutrophils % Seg Neuts % (Manual) Lymphocytes % (Manual) Monocytes % (Manual) Nucleated RBC % Seg Neutrophils # Seg Neutrophils # Man Lymphocytes # (Manual) Monocytes # (Manual) Eosinophils # (Manual) Basophils # (Manual) PT INR POC ABG pH 7.481 H ABG pH POC ABG pCO2 29.6 L POC ABG pO2 ABG pO2 ABG Base Excess ABG Hemoglobin Sodium Potassium Chloride Carbon Dioxide BUN Creatinine Glucose POC Glucose 188 H 109 H Calcium Phosphorus Magnesium AST ALT Alkaline Phosphatase Troponin T C-Reactive Protein Total Protein Albumin Triglycerides HDL Cholesterol Miscellaneous Test Crossmatch 08/21/17 08/21/17 08/21/17 05:05 06:50 06:50 WBC 44.7 H* RBC 2.41 L Hgb 7.1 L Hct 22.1 L MCV MCH RDW 18.3 H Plt Count Lymph % (Auto) [place] % (Auto) [place] # Seg Neutrophils % Seg Neuts % (Manual) 89.0 H Lymphocytes % (Manual) 0 L Monocytes % (Manual) Nucleated RBC % 1.0 H Seg Neutrophils # Seg Neutrophils # Man 39.8 H Lymphocytes # (Manual) 0.0 L Monocytes # (Manual) 1.3 H Eosinophils # (Manual) Basophils # (Manual) PT INR POC ABG pH ABG pH POC ABG pCO2 POC ABG pO2 ABG pO2 ABG Base Excess ABG Hemoglobin Sodium 135 L Potassium Chloride Carbon Dioxide BUN 39 H Creatinine 4.4 H Glucose 147 H POC Glucose 166 H Calcium 8.1 L Phosphorus Magnesium AST ALT < 5 L Alkaline Phosphatase 164 H Troponin T C-Reactive Protein Total Protein 4.7 L Albumin 1.4 L Triglycerides HDL Cholesterol Miscellaneous Test Crossmatch 08/21/17 08/21/17 08/21/17 08:00 12:21 17:02 WBC RBC Hgb Hct MCV MCH RDW Plt Count Lymph % (Auto) [place] % (Auto) [place] # Seg Neutrophils % Seg Neuts % (Manual) Lymphocytes % (Manual) Monocytes % (Manual) Nucleated RBC % Seg Neutrophils # Seg Neutrophils # Man Lymphocytes # (Manual) Monocytes # (Manual) Eosinophils # (Manual) Basophils # (Manual) PT INR POC ABG pH ABG pH POC ABG pCO2 POC ABG pO2 ABG pO2 ABG Base Excess ABG Hemoglobin Sodium Potassium Chloride Carbon Dioxide BUN Creatinine Glucose POC Glucose 147 H 135 H Calcium Phosphorus Magnesium AST ALT Alkaline Phosphatase Troponin T C-Reactive Protein Total Protein Albumin Triglycerides HDL Cholesterol Miscellaneous Test Crossmatch See Detail 08/21/17 08/22/17 08/22/17 23:38 03:40 03:40 WBC 42.5 H* RBC 2.88 L Hgb 8.5 L Hct 26.3 L MCV MCH RDW 17.9 H Plt Count Lymph % (Auto) [place] % (Auto) [place] # Seg Neutrophils % Seg Neuts % (Manual) Lymphocytes % (Manual) 5.0 L Monocytes % (Manual) Nucleated RBC % Seg Neutrophils # Seg Neutrophils # Man 19.6 H Lymphocytes # (Manual) Monocytes # (Manual) 2.6 H Eosinophils # (Manual) Basophils # (Manual) PT INR POC ABG pH ABG pH POC ABG pCO2 POC ABG pO2 ABG pO2 ABG Base Excess ABG Hemoglobin Sodium Potassium 3.3 L D Chloride Carbon Dioxide BUN 27 H Creatinine 2.9 H Glucose 144 H POC Glucose 251 H Calcium 8.0 L Phosphorus 2.40 L Magnesium AST ALT Alkaline Phosphatase Troponin T C-Reactive Protein Total Protein Albumin Triglycerides HDL Cholesterol Miscellaneous Test Crossmatch 08/22/17 08/22/17 08/22/17 06:37 08:50 11:25 WBC RBC Hgb Hct MCV MCH RDW Plt Count Lymph % (Auto) [place] % (Auto) [place] # Seg Neutrophils % Seg Neuts % (Manual) Lymphocytes % (Manual) Monocytes % (Manual) Nucleated RBC % Seg Neutrophils # Seg Neutrophils # Man Lymphocytes # (Manual) Monocytes # (Manual) Eosinophils # (Manual) Basophils # (Manual) PT INR POC ABG pH ABG pH POC ABG pCO2 POC ABG pO2 ABG pO2 ABG Base Excess ABG Hemoglobin Sodium Potassium Chloride Carbon Dioxide BUN Creatinine Glucose POC Glucose 152 H 175 H Calcium Phosphorus Magnesium AST ALT Alkaline Phosphatase Troponin T C-Reactive Protein Total Protein Albumin Triglycerides HDL Cholesterol Miscellaneous Test Flexitest 1 H Crossmatch 08/22/17 08/22/17 08/22/17 16:25 17:56 23:03 WBC RBC Hgb Hct MCV MCH RDW Plt Count Lymph % (Auto) [place] % (Auto) [place] # Seg Neutrophils % Seg Neuts % (Manual) Lymphocytes % (Manual) Monocytes % (Manual) Nucleated RBC % Seg Neutrophils # Seg Neutrophils # Man Lymphocytes # (Manual) Monocytes # (Manual) Eosinophils # (Manual) Basophils # (Manual) PT INR POC ABG pH ABG pH POC ABG pCO2 POC ABG pO2 ABG pO2 ABG Base Excess ABG Hemoglobin Sodium Potassium Chloride Carbon Dioxide BUN Creatinine Glucose POC Glucose 232 H 192 H Calcium Phosphorus Magnesium AST ALT Alkaline Phosphatase Troponin T C-Reactive Protein 30.70 H Total Protein Albumin Triglycerides HDL Cholesterol Miscellaneous Test Crossmatch 08/23/17 08/23/17 08/23/17 05:36 08:50 12:14 WBC RBC Hgb Hct MCV MCH RDW Plt Count Lymph % (Auto) [place] % (Auto) [place] # Seg Neutrophils % Seg Neuts % (Manual) Lymphocytes % (Manual) Monocytes % (Manual) Nucleated RBC % Seg Neutrophils # Seg Neutrophils # Man Lymphocytes # (Manual) Monocytes # (Manual) Eosinophils # (Manual) Basophils # (Manual) PT INR POC ABG pH ABG pH POC ABG pCO2 POC ABG pO2 ABG pO2 ABG Base Excess ABG Hemoglobin Sodium Potassium Chloride 107.1 H Carbon Dioxide BUN 49 H Creatinine 3.3 H Glucose 172 H POC Glucose 206 H 238 H Calcium Phosphorus Magnesium 2.40 H AST ALT Alkaline Phosphatase Troponin T C-Reactive Protein Total Protein Albumin Triglycerides HDL Cholesterol Miscellaneous Test Crossmatch 08/23/17 08/23/17 08/24/17 17:21 23:13 04:00 WBC 34.2 H RBC 2.86 L Hgb 8.4 L Hct 25.9 L MCV MCH RDW 17.9 H Plt Count Lymph % (Auto) [place] % (Auto) [place] # Seg Neutrophils % Seg Neuts % (Manual) 85.0 H Lymphocytes % (Manual) 0.5 L Monocytes % (Manual) Nucleated RBC % 1.0 H Seg Neutrophils # Seg Neutrophils # Man 29.1 H Lymphocytes # (Manual) 0.2 L Monocytes # (Manual) 2.4 H Eosinophils # (Manual) Basophils # (Manual) PT INR POC ABG pH ABG pH POC ABG pCO2 POC ABG pO2 ABG pO2 ABG Base Excess ABG Hemoglobin Sodium Potassium Chloride Carbon Dioxide BUN Creatinine Glucose POC Glucose 226 H 183 H Calcium Phosphorus Magnesium AST ALT Alkaline Phosphatase Troponin T C-Reactive Protein Total Protein Albumin Triglycerides HDL Cholesterol Miscellaneous Test Crossmatch 08/24/17 08/24/17 08/24/17 05:06 09:30 12:04 WBC RBC Hgb Hct MCV MCH RDW Plt Count Lymph % (Auto) [place] % (Auto) [place] # Seg Neutrophils % Seg Neuts % (Manual) Lymphocytes % (Manual) Monocytes % (Manual) Nucleated RBC % Seg Neutrophils # Seg Neutrophils # Man Lymphocytes # (Manual) Monocytes # (Manual) Eosinophils # (Manual) Basophils # (Manual) PT INR POC ABG pH ABG pH POC ABG pCO2 POC ABG pO2 ABG pO2 ABG Base Excess ABG Hemoglobin Sodium Potassium Chloride Carbon Dioxide BUN 46 H Creatinine 2.5 H Glucose 176 H POC Glucose 201 H 181 H Calcium Phosphorus Magnesium AST ALT Alkaline Phosphatase Troponin T C-Reactive Protein Total Protein Albumin Triglycerides HDL Cholesterol Miscellaneous Test Crossmatch 08/24/17 08/24/17 08/25/17 18:04 23:05 05:05 WBC RBC Hgb Hct MCV MCH RDW Plt Count Lymph % (Auto) [place] % (Auto) [place] # Seg Neutrophils % Seg Neuts % (Manual) Lymphocytes % (Manual) Monocytes % (Manual) Nucleated RBC % Seg Neutrophils # Seg Neutrophils # Man Lymphocytes # (Manual) Monocytes # (Manual) Eosinophils # (Manual) Basophils # (Manual) PT INR POC ABG pH ABG pH POC ABG pCO2 POC ABG pO2 ABG pO2 ABG Base Excess ABG Hemoglobin Sodium Potassium Chloride Carbon Dioxide BUN Creatinine Glucose POC Glucose 189 H 175 H 190 H Calcium Phosphorus Magnesium AST ALT Alkaline Phosphatase Troponin T C-Reactive Protein Total Protein Albumin Triglycerides HDL Cholesterol Miscellaneous Test Crossmatch 08/25/17 08/25/17 08/26/17 07:02 11:53 05:30 WBC 33.5 H RBC 2.47 L Hgb 7.3 L Hct 23.0 L MCV MCH RDW 21.3 H Plt Count Lymph % (Auto) [place] % (Auto) [place] # Seg Neutrophils % Seg Neuts % (Manual) 92.0 H Lymphocytes % (Manual) 1.0 L Monocytes % (Manual) Nucleated RBC % Seg Neutrophils # Seg Neutrophils # Man 30.8 H Lymphocytes # (Manual) 0.3 L Monocytes # (Manual) Eosinophils # (Manual) Basophils # (Manual) PT INR POC ABG pH ABG pH POC ABG pCO2 POC ABG pO2 ABG pO2 ABG Base Excess ABG Hemoglobin Sodium Potassium Chloride Carbon Dioxide BUN 32 H Creatinine 5.0 H D Glucose 117 H POC Glucose 191 H Calcium 8.0 L Phosphorus Magnesium AST ALT Alkaline Phosphatase Troponin T C-Reactive Protein Total Protein Albumin Triglycerides HDL Cholesterol Miscellaneous Test Crossmatch 08/26/17 08/26/17 08/26/17 05:30 06:44 13:26 WBC RBC Hgb Hct MCV MCH RDW Plt Count Lymph % (Auto) [place] % (Auto) [place] # Seg Neutrophils % Seg Neuts % (Manual) Lymphocytes % (Manual) Monocytes % (Manual) Nucleated RBC % Seg Neutrophils # Seg Neutrophils # Man Lymphocytes # (Manual) Monocytes # (Manual) Eosinophils # (Manual) Basophils # (Manual) PT INR POC ABG pH ABG pH POC ABG pCO2 POC ABG pO2 ABG pO2 ABG Base Excess ABG Hemoglobin Sodium Potassium 5.2 H Chloride Carbon Dioxide BUN 80 H Creatinine 3.4 H Glucose 193 H POC Glucose 232 H 207 H Calcium 8.3 L Phosphorus 6.80 H D Magnesium 2.60 H AST 135 H ALT Alkaline Phosphatase 211 H Troponin T C-Reactive Protein Total Protein 4.8 L Albumin 2.0 L Triglycerides HDL Cholesterol Miscellaneous Test Crossmatch 08/27/17 08/27/17 08/27/17 01:08 06:20 06:20 WBC 35.0 H RBC 2.75 L Hgb 8.4 L Hct 25.1 L MCV MCH RDW 21.8 H Plt Count Lymph % (Auto) [place] % (Auto) [place] # Seg Neutrophils % Seg Neuts % (Manual) Lymphocytes % (Manual) 4.5 L Monocytes % (Manual) Nucleated RBC % Seg Neutrophils # Seg Neutrophils # Man 31.9 H Lymphocytes # (Manual) Monocytes # (Manual) 1.2 H Eosinophils # (Manual) Basophils # (Manual) PT INR POC ABG pH ABG pH POC ABG pCO2 POC ABG pO2 ABG pO2 ABG Base Excess ABG Hemoglobin Sodium Potassium Chloride Carbon Dioxide BUN 61 H Creatinine 2.6 H Glucose 184 H POC Glucose 146 H Calcium Phosphorus 4.90 H D Magnesium AST ALT Alkaline Phosphatase Troponin T C-Reactive Protein Total Protein Albumin Triglycerides HDL Cholesterol Miscellaneous Test Crossmatch 08/27/17 08/27/17 08/27/17 07:01 09:17 12:52 WBC RBC Hgb Hct MCV MCH RDW Plt Count Lymph % (Auto) [place] % (Auto) [place] # Seg Neutrophils % Seg Neuts % (Manual) Lymphocytes % (Manual) Monocytes % (Manual) Nucleated RBC % Seg Neutrophils # Seg Neutrophils # Man Lymphocytes # (Manual) Monocytes # (Manual) Eosinophils # (Manual) Basophils # (Manual) PT INR POC ABG pH ABG pH POC ABG pCO2 POC ABG pO2 ABG pO2 ABG Base Excess ABG Hemoglobin Sodium Potassium Chloride Carbon Dioxide BUN Creatinine Glucose POC Glucose 165 H 198 H 218 H Calcium Phosphorus Magnesium AST ALT Alkaline Phosphatase Troponin T C-Reactive Protein Total Protein Albumin Triglycerides HDL Cholesterol Miscellaneous Test Crossmatch 08/27/17 08/28/17 08/28/17 17:27 02:13 06:46 WBC RBC Hgb Hct MCV MCH RDW Plt Count Lymph % (Auto) [place] % (Auto) [place] # Seg Neutrophils % Seg Neuts % (Manual) Lymphocytes % (Manual) Monocytes % (Manual) Nucleated RBC % Seg Neutrophils # Seg Neutrophils # Man Lymphocytes # (Manual) Monocytes # (Manual) Eosinophils # (Manual) Basophils # (Manual) PT INR POC ABG pH ABG pH POC ABG pCO2 POC ABG pO2 ABG pO2 ABG Base Excess ABG Hemoglobin Sodium Potassium Chloride Carbon Dioxide BUN Creatinine Glucose POC Glucose 151 H 155 H 230 H Calcium Phosphorus Magnesium AST ALT Alkaline Phosphatase Troponin T C-Reactive Protein Total Protein Albumin Triglycerides HDL Cholesterol Miscellaneous Test Crossmatch 08/28/17 08/28/17 08/28/17 06:53 06:53 08:19 WBC 31.1 H RBC 2.26 L Hgb 6.8 L Hct 20.9 L MCV MCH RDW 21.7 H Plt Count Lymph % (Auto) [place] % (Auto) [place] # Seg Neutrophils % Seg Neuts % (Manual) 83.0 H Lymphocytes % (Manual) 4.0 L Monocytes % (Manual) Nucleated RBC % Seg Neutrophils # Seg Neutrophils # Man 25.8 H Lymphocytes # (Manual) Monocytes # (Manual) Eosinophils # (Manual) Basophils # (Manual) PT INR POC ABG pH ABG pH POC ABG pCO2 POC ABG pO2 ABG pO2 ABG Base Excess ABG Hemoglobin Sodium Potassium Chloride Carbon Dioxide BUN 81 H Creatinine 3.4 H Glucose 218 H POC Glucose 239 H Calcium Phosphorus 4.90 H Magnesium AST ALT Alkaline Phosphatase Troponin T C-Reactive Protein Total Protein Albumin Triglycerides HDL Cholesterol Miscellaneous Test Crossmatch 08/28/17 08/28/17 08/28/17 11:56 13:05 13:29 WBC RBC Hgb Hct MCV MCH RDW Plt Count Lymph % (Auto) [place] % (Auto) [place] # Seg Neutrophils % Seg Neuts % (Manual) Lymphocytes % (Manual) Monocytes % (Manual) Nucleated RBC % Seg Neutrophils # Seg Neutrophils # Man Lymphocytes # (Manual) Monocytes # (Manual) Eosinophils # (Manual) Basophils # (Manual) PT 16.7 H INR 1.29 H POC ABG pH ABG pH POC ABG pCO2 POC ABG pO2 338 H ABG pO2 ABG Base Excess ABG Hemoglobin Sodium Potassium Chloride Carbon Dioxide BUN Creatinine Glucose POC Glucose Calcium Phosphorus Magnesium AST ALT Alkaline Phosphatase Troponin T C-Reactive Protein Total Protein Albumin Triglycerides HDL Cholesterol Miscellaneous Test Crossmatch See Detail 08/28/17 08/28/17 08/29/17 16:22 19:20 04:24 WBC RBC Hgb Hct MCV MCH RDW Plt Count Lymph % (Auto) [place] % (Auto) [place] # Seg Neutrophils % Seg Neuts % (Manual) Lymphocytes % (Manual) Monocytes % (Manual) Nucleated RBC % Seg Neutrophils # Seg Neutrophils # Man Lymphocytes # (Manual) Monocytes # (Manual) Eosinophils # (Manual) Basophils # (Manual) PT INR POC ABG pH 7.469 H ABG pH POC ABG pCO2 POC ABG pO2 240 H ABG pO2 ABG Base Excess ABG Hemoglobin Sodium Potassium Chloride Carbon Dioxide BUN Creatinine Glucose POC Glucose 209 H 195 H Calcium Phosphorus Magnesium AST ALT Alkaline Phosphatase Troponin T C-Reactive Protein Total Protein Albumin Triglycerides HDL Cholesterol Miscellaneous Test Crossmatch 08/29/17 08/29/17 08/29/17 04:30 04:30 12:07 WBC 44.9 H* RBC Hgb Hct MCV MCH RDW 23.1 H Plt Count Lymph % (Auto) [place] % (Auto) [place] # Seg Neutrophils % Seg Neuts % (Manual) 38.0 L Lymphocytes % (Manual) 10.0 L Monocytes % (Manual) 10.0 H Nucleated RBC % 6.0 H Seg Neutrophils # Seg Neutrophils # Man 17.1 H Lymphocytes # (Manual) Monocytes # (Manual) 4.5 H Eosinophils # (Manual) Basophils # (Manual) PT INR POC ABG pH ABG pH POC ABG pCO2 POC ABG pO2 ABG pO2 ABG Base Excess ABG Hemoglobin Sodium Potassium Chloride Carbon Dioxide BUN 61 H Creatinine 2.4 H Glucose 226 H POC Glucose 200 H Calcium Phosphorus Magnesium AST ALT Alkaline Phosphatase Troponin T C-Reactive Protein Total Protein Albumin Triglycerides HDL Cholesterol Miscellaneous Test Crossmatch 08/29/17 08/29/17 08/29/17 12:30 12:30 17:23 WBC RBC Hgb Hct MCV MCH RDW Plt Count Lymph % (Auto) [place] % (Auto) [place] # Seg Neutrophils % Seg Neuts % (Manual) Lymphocytes % (Manual) Monocytes % (Manual) Nucleated RBC % Seg Neutrophils # Seg Neutrophils # Man Lymphocytes # (Manual) Monocytes # (Manual) Eosinophils # (Manual) Basophils # (Manual) PT INR POC ABG pH ABG pH POC ABG pCO2 POC ABG pO2 ABG pO2 ABG Base Excess ABG Hemoglobin Sodium Potassium Chloride Carbon Dioxide BUN Creatinine Glucose POC Glucose 270 H Calcium Phosphorus Magnesium AST ALT Alkaline Phosphatase Troponin T C-Reactive Protein 19.10 H Total Protein Albumin Triglycerides HDL Cholesterol Miscellaneous Test Flexitest 1 H Crossmatch 08/30/17 08/30/17 08/30/17 00:10 01:30 03:31 WBC RBC Hgb Hct MCV MCH RDW Plt Count Lymph % (Auto) [place] % (Auto) [place] # Seg Neutrophils % Seg Neuts % (Manual) Lymphocytes % (Manual) Monocytes % (Manual) Nucleated RBC % Seg Neutrophils # Seg Neutrophils # Man Lymphocytes # (Manual) Monocytes # (Manual) Eosinophils # (Manual) Basophils # (Manual) PT INR POC ABG pH 7.168 L 7.335 L ABG pH POC ABG pCO2 72.8 H POC ABG pO2 257 H 117 H ABG pO2 ABG Base Excess ABG Hemoglobin Sodium Potassium Chloride Carbon Dioxide BUN Creatinine Glucose POC Glucose 245 H Calcium Phosphorus Magnesium AST ALT Alkaline Phosphatase Troponin T C-Reactive Protein Total Protein Albumin Triglycerides HDL Cholesterol Miscellaneous Test Crossmatch 08/30/17 08/30/17 08/30/17 05:20 05:20 05:20 WBC 40.9 H* RBC 3.64 L Hgb Hct MCV MCH RDW 24.3 H Plt Count Lymph % (Auto) [place] % (Auto) [place] # Seg Neutrophils % Seg Neuts % (Manual) 80.0 H Lymphocytes % (Manual) 3.0 L Monocytes % (Manual) Nucleated RBC % 1.0 H Seg Neutrophils # Seg Neutrophils # Man 32.7 H Lymphocytes # (Manual) Monocytes # (Manual) Eosinophils # (Manual) Basophils # (Manual) PT INR POC ABG pH ABG pH POC ABG pCO2 POC ABG pO2 ABG pO2 ABG Base Excess ABG Hemoglobin Sodium Potassium Chloride Carbon Dioxide BUN 83 H Creatinine 2.9 H Glucose 334 H POC Glucose 309 H Calcium Phosphorus Magnesium AST ALT Alkaline Phosphatase Troponin T C-Reactive Protein Total Protein Albumin Triglycerides HDL Cholesterol Miscellaneous Test Crossmatch 08/30/17 08/30/17 08/31/17 12:18 17:36 00:17 WBC RBC Hgb Hct MCV MCH RDW Plt Count Lymph % (Auto) [place] % (Auto) [place] # Seg Neutrophils % Seg Neuts % (Manual) Lymphocytes % (Manual) Monocytes % (Manual) Nucleated RBC % Seg Neutrophils # Seg Neutrophils # Man Lymphocytes # (Manual) Monocytes # (Manual) Eosinophils # (Manual) Basophils # (Manual) PT INR POC ABG pH ABG pH POC ABG pCO2 POC ABG pO2 ABG pO2 ABG Base Excess ABG Hemoglobin Sodium Potassium Chloride Carbon Dioxide BUN Creatinine Glucose POC Glucose 273 H 293 H 360 H Calcium Phosphorus Magnesium AST ALT Alkaline Phosphatase Troponin T C-Reactive Protein Total Protein Albumin Triglycerides HDL Cholesterol Miscellaneous Test Crossmatch 08/31/17 08/31/17 08/31/17 05:30 05:30 05:32 WBC 29.9 H RBC 2.89 L Hgb 8.2 L Hct 24.7 L D MCV MCH RDW 24.4 H Plt Count Lymph % (Auto) [place] % (Auto) [place] # Seg Neutrophils % Seg Neuts % (Manual) Lymphocytes % (Manual) 2.0 L Monocytes % (Manual) Nucleated RBC % 2.0 H Seg Neutrophils # Seg Neutrophils # Man 18.5 H Lymphocytes # (Manual) 0.6 L Monocytes # (Manual) 0.9 H Eosinophils # (Manual) Basophils # (Manual) PT INR POC ABG pH ABG pH POC ABG pCO2 POC ABG pO2 ABG pO2 ABG Base Excess ABG Hemoglobin Sodium Potassium Chloride Carbon Dioxide BUN 62 H Creatinine 2.2 H Glucose 245 H POC Glucose 257 H Calcium Phosphorus 2.10 L D Magnesium 1.60 L AST ALT Alkaline Phosphatase Troponin T C-Reactive Protein Total Protein Albumin Triglycerides HDL Cholesterol Miscellaneous Test Crossmatch 08/31/17 08/31/17 08/31/17 11:56 12:05 18:14 WBC 32.5 H RBC 3.19 L Hgb 8.8 L Hct 27.9 L MCV MCH RDW 24.9 H Plt Count Lymph % (Auto) [place] % (Auto) [place] # Seg Neutrophils % Seg Neuts % (Manual) Lymphocytes % (Manual) 1.0 L Monocytes % (Manual) 12.0 H Nucleated RBC % 1.0 H Seg Neutrophils # Seg Neutrophils # Man 13.3 H Lymphocytes # (Manual) 0.3 L Monocytes # (Manual) 3.9 H Eosinophils # (Manual) Basophils # (Manual) PT INR POC ABG pH ABG pH POC ABG pCO2 POC ABG pO2 ABG pO2 ABG Base Excess ABG Hemoglobin Sodium Potassium Chloride Carbon Dioxide BUN Creatinine Glucose POC Glucose 245 H Calcium Phosphorus Magnesium AST ALT Alkaline Phosphatase Troponin T C-Reactive Protein Total Protein Albumin Triglycerides HDL Cholesterol Miscellaneous Test Crossmatch See Detail 08/31/17 08/31/17 08/31/17 18:14 18:15 23:53 WBC RBC Hgb Hct MCV MCH RDW Plt Count Lymph % (Auto) [place] % (Auto) [place] # Seg Neutrophils % Seg Neuts % (Manual) Lymphocytes % (Manual) Monocytes % (Manual) Nucleated RBC % Seg Neutrophils # Seg Neutrophils # Man Lymphocytes # (Manual) Monocytes # (Manual) Eosinophils # (Manual) Basophils # (Manual) PT 15.1 H INR POC ABG pH ABG pH POC ABG pCO2 POC ABG pO2 ABG pO2 ABG Base Excess ABG Hemoglobin Sodium 136 L Potassium Chloride Carbon Dioxide 21 L BUN 69 H Creatinine 2.3 H Glucose 227 H POC Glucose 301 H Calcium Phosphorus 2.40 L Magnesium 1.50 L AST 143 H ALT 114 H Alkaline Phosphatase 267 H Troponin T C-Reactive Protein Total Protein 4.1 L Albumin 1.8 L Triglycerides HDL Cholesterol Miscellaneous Test Crossmatch 09/01/17 09/01/17 09/01/17 05:00 05:00 05:20 WBC 33.9 H RBC 2.85 L Hgb 7.8 L Hct 24.8 L MCV MCH 27 L RDW 23.9 H Plt Count Lymph % (Auto) [place] % (Auto) [place] # Seg Neutrophils % Seg Neuts % (Manual) Lymphocytes % (Manual) 5.0 L Monocytes % (Manual) Nucleated RBC % Seg Neutrophils # Seg Neutrophils # Man 23.1 H Lymphocytes # (Manual) Monocytes # (Manual) Eosinophils # (Manual) Basophils # (Manual) PT INR POC ABG pH ABG pH 7.348 L POC ABG pCO2 POC ABG pO2 ABG pO2 70.2 L ABG Base Excess ABG Hemoglobin 7.5 L Sodium Potassium Chloride Carbon Dioxide BUN 51 H Creatinine 1.8 H Glucose 195 H POC Glucose Calcium Phosphorus 1.70 L D Magnesium 1.60 L AST 80 H ALT 82 H Alkaline Phosphatase 243 H Troponin T C-Reactive Protein Total Protein 4.2 L Albumin 1.7 L Triglycerides HDL Cholesterol Miscellaneous Test Crossmatch 09/01/17 09/01/17 09/01/17 05:47 11:37 17:39 WBC RBC Hgb Hct MCV MCH RDW Plt Count Lymph % (Auto) [place] % (Auto) [place] # Seg Neutrophils % Seg Neuts % (Manual) Lymphocytes % (Manual) Monocytes % (Manual) Nucleated RBC % Seg Neutrophils # Seg Neutrophils # Man Lymphocytes # (Manual) Monocytes # (Manual) Eosinophils # (Manual) Basophils # (Manual) PT INR POC ABG pH ABG pH POC ABG pCO2 POC ABG pO2 ABG pO2 ABG Base Excess ABG Hemoglobin Sodium Potassium Chloride Carbon Dioxide BUN Creatinine Glucose POC Glucose 230 H 254 H 297 H Calcium Phosphorus Magnesium AST ALT Alkaline Phosphatase Troponin T C-Reactive Protein Total Protein Albumin Triglycerides HDL Cholesterol Miscellaneous Test Crossmatch 09/01/17 09/02/17 09/02/17 23:14 04:55 05:31 WBC RBC Hgb Hct MCV MCH RDW Plt Count Lymph % (Auto) [place] % (Auto) [place] # Seg Neutrophils % Seg Neuts % (Manual) Lymphocytes % (Manual) Monocytes % (Manual) Nucleated RBC % Seg Neutrophils # Seg Neutrophils # Man Lymphocytes # (Manual) Monocytes # (Manual) Eosinophils # (Manual) Basophils # (Manual) PT INR POC ABG pH ABG pH POC ABG pCO2 POC ABG pO2 ABG pO2 124.8 H ABG Base Excess -2.9 L ABG Hemoglobin 5.8 L Sodium Potassium Chloride Carbon Dioxide BUN Creatinine Glucose POC Glucose 291 H 245 H Calcium Phosphorus Magnesium AST ALT Alkaline Phosphatase Troponin T C-Reactive Protein Total Protein Albumin Triglycerides HDL Cholesterol Miscellaneous Test Crossmatch 09/02/17 09/02/17 09/02/17 06:10 11:58 15:37 WBC RBC Hgb Hct MCV MCH RDW Plt Count Lymph % (Auto) [place] % (Auto) [place] # Seg Neutrophils % Seg Neuts % (Manual) Lymphocytes % (Manual) Monocytes % (Manual) Nucleated RBC % Seg Neutrophils # Seg Neutrophils # Man Lymphocytes # (Manual) Monocytes # (Manual) Eosinophils # (Manual) Basophils # (Manual) PT INR POC ABG pH ABG pH POC ABG pCO2 POC ABG pO2 ABG pO2 ABG Base Excess ABG Hemoglobin Sodium Potassium Chloride Carbon Dioxide BUN 68 H Creatinine 2.2 H Glucose 369 H POC Glucose 333 H 314 H Calcium 8.2 L Phosphorus Magnesium AST ALT Alkaline Phosphatase Troponin T C-Reactive Protein Total Protein Albumin Triglycerides HDL Cholesterol Miscellaneous Test Crossmatch 09/02/17 09/03/17 09/03/17 23:50 04:00 05:00 WBC 41.5 H* RBC 2.46 L Hgb 6.9 L Hct 21.3 L MCV MCH RDW 24.9 H Plt Count Lymph % (Auto) [place] % (Auto) [place] # Seg Neutrophils % Seg Neuts % (Manual) Lymphocytes % (Manual) 3.0 L Monocytes % (Manual) 9.5 H Nucleated RBC % 1.5 H Seg Neutrophils # Seg Neutrophils # Man 28.8 H Lymphocytes # (Manual) Monocytes # (Manual) 3.9 H Eosinophils # (Manual) Basophils # (Manual) PT INR POC ABG pH ABG pH POC ABG pCO2 POC ABG pO2 ABG pO2 ABG Base Excess ABG Hemoglobin Sodium Potassium Chloride Carbon Dioxide BUN 59 H Creatinine 1.9 H Glucose 231 H POC Glucose 240 H Calcium 8.0 L Phosphorus Magnesium AST ALT Alkaline Phosphatase 265 H Troponin T C-Reactive Protein Total Protein 4.4 L Albumin 1.7 L Triglycerides 180 H HDL Cholesterol Miscellaneous Test Crossmatch 09/03/17 09/03/17 09/03/17 05:32 11:52 16:55 WBC RBC Hgb Hct MCV MCH RDW Plt Count Lymph % (Auto) [place] % (Auto) [place] # Seg Neutrophils % Seg Neuts % (Manual) Lymphocytes % (Manual) Monocytes % (Manual) Nucleated RBC % Seg Neutrophils # Seg Neutrophils # Man Lymphocytes # (Manual) Monocytes # (Manual) Eosinophils # (Manual) Basophils # (Manual) PT INR POC ABG pH ABG pH POC ABG pCO2 POC ABG pO2 ABG pO2 ABG Base Excess ABG Hemoglobin Sodium Potassium Chloride Carbon Dioxide BUN Creatinine Glucose POC Glucose 188 H 285 H Calcium Phosphorus Magnesium AST ALT Alkaline Phosphatase Troponin T C-Reactive Protein Total Protein Albumin Triglycerides HDL Cholesterol Miscellaneous Test Crossmatch See Detail 09/03/17 09/03/17 09/03/17 17:44 23:56 Unknown WBC RBC Hgb Hct MCV MCH RDW Plt Count Lymph % (Auto) [place] % (Auto) [place] # Seg Neutrophils % Seg Neuts % (Manual) Lymphocytes % (Manual) Monocytes % (Manual) Nucleated RBC % Seg Neutrophils # Seg Neutrophils # Man Lymphocytes # (Manual) Monocytes # (Manual) Eosinophils # (Manual) Basophils # (Manual) PT INR POC ABG pH ABG pH POC ABG pCO2 POC ABG pO2 ABG pO2 133.4 H ABG Base Excess ABG Hemoglobin 5.8 L Sodium Potassium Chloride Carbon Dioxide BUN Creatinine Glucose POC Glucose 217 H 193 H Calcium Phosphorus Magnesium AST ALT Alkaline Phosphatase Troponin T C-Reactive Protein Total Protein Albumin Triglycerides HDL Cholesterol Miscellaneous Test Crossmatch 09/04/17 09/04/17 09/04/17 03:47 04:32 04:32 WBC 44.7 H* RBC 3.12 L Hgb 8.7 L Hct 26.7 L MCV MCH RDW 23.5 H Plt Count Lymph % (Auto) [place] % (Auto) [place] # Seg Neutrophils % Seg Neuts % (Manual) Lymphocytes % (Manual) 4.0 L Monocytes % (Manual) Nucleated RBC % 2.0 H Seg Neutrophils # Seg Neutrophils # Man 30.8 H Lymphocytes # (Manual) Monocytes # (Manual) 2.2 H Eosinophils # (Manual) Basophils # (Manual) PT INR POC ABG pH ABG pH POC ABG pCO2 POC ABG pO2 ABG pO2 135.0 H ABG Base Excess -2.5 L ABG Hemoglobin 7.9 L Sodium 136 L Potassium 5.2 H D Chloride 94.2 L Carbon Dioxide BUN 71 H Creatinine 2.3 H Glucose 235 H POC Glucose Calcium 8.3 L Phosphorus Magnesium AST ALT Alkaline Phosphatase Troponin T C-Reactive Protein Total Protein Albumin Triglycerides HDL Cholesterol Miscellaneous Test Crossmatch 09/04/17 05:48 WBC RBC Hgb Hct MCV MCH RDW Plt Count Lymph % (Auto) [place] % (Auto) [place] # Seg Neutrophils % Seg Neuts % (Manual) Lymphocytes % (Manual) Monocytes % (Manual) Nucleated RBC % Seg Neutrophils # Seg Neutrophils # Man Lymphocytes # (Manual) Monocytes # (Manual) Eosinophils # (Manual) Basophils # (Manual) PT INR POC ABG pH ABG pH POC ABG pCO2 POC ABG pO2 ABG pO2 ABG Base Excess ABG Hemoglobin Sodium Potassium Chloride Carbon Dioxide BUN Creatinine Glucose POC Glucose 329 H Calcium Phosphorus Magnesium AST ALT Alkaline Phosphatase Troponin T C-Reactive Protein Total Protein Albumin Triglycerides HDL Cholesterol Miscellaneous Test Crossmatch
--- NOTE | 2017-09-04 14:08 | Consultation ---
History of Present Illness Consult date: 09/04/17 Reason for consult: other (Tracheostomy) Chief complaint: Respiratory failure - History of present illness History of present illness: 62 y/o female patient who presented with perforated viscus as well as a small bowel obstruction requiring ex-lap. At a later date patient had a dehiscence and required re-operation. She has continued to do poorly and has been on the ventilator for a prolonged time, requiring tracheotomy. Past History Past Medical History: arthritis, ESRD, heart failure, hypertension, other ( chronic Pain, Obesity, hx of hypotension) Past Surgical History: cholecystectomy, total knee replacement, Other (Neck surgery, Gastric surgery-1980s possible bariatric ) Social history: , lives with family, other (wheelchair bound. at home able to be mobile in her wheelchair ). denies: smoking, alcohol abuse, prescription drug abuse, IV drug use Family history: CAD, hypertension Medications and Allergies Allergies Allergy/AdvReac Type Severity Reaction Status Date / Time Penicillins Allergy Shortness Verified 09/07/13 07:21 of Breath Home Medications Medication Instructions Recorded Confirmed Last Taken Type Cyclobenzaprine [Flexeril 10 MG 10 mg PO BID 09/07/13 08/09/17 07/29/17 History TAB] HYDROcodone/ACETAMINOPHEN 1 tab PO BID PRN 09/07/13 08/09/17 07/30/17 History [Hydrocodone-Acetaminophnen(Nf) 10/500 mg Tab] buPROPion [Wellbutrin] 150 mg PO DAILY 07/06/14 08/09/17 1 Week Ago History Calcitriol [Rocaltrol] 1 mcg PO QDAY 08/09/17 08/09/17 07/30/17 History FLUoxetine [PROzac] 40 mg PO QDAY 08/09/17 08/09/17 1 Week Ago History Pantoprazole [Protonix] 40 mg PO QDAY 08/09/17 08/09/17 07/30/17 History Potassium Chloride 40 meq PO BID 08/09/17 08/09/17 07/30/17 History Kori-Milka Rx Tablet 1 mg PO 4XD 08/09/17 08/09/17 08/09/17 15:58 History Active Meds: Active Medications Albuterol (Proventil) 2.5 mg IH Q4HRT PRN PRN Reason: Shortness Of Breath Last Admin: 08/24/17 21:49 Dose: 2.5 mg Albuterol/Ipratropium (Duoneb *Not For Prn Use*) 1 ampul IH Q6HRT [facility] Last Admin: 09/04/17 09:01 Dose: 1 ampul Heparin Sodium (Porcine) (Heparin) 5,000 unit IV ISIAH PRN PRN Reason: hemodialysis Last Admin: 09/02/17 18:30 Dose: 5,000 unit Hydrocortisone Sodium Succinate (Solu-Cortef) 50 mg IV Q8HR GLORIA Hydromorphone HCl (Dilaudid) 1 mg IV Q4H PRN PRN Reason: Pain , Severe (7-10) Last Admin: 09/04/17 10:07 Dose: 1 mg Hydrophilic Ointment (Vaseline Lip Therapy) 1 applic TP DIRECT PRN PRN Reason: DRY LIPS Norepinephrine 8 mg/ Sodium (Chloride) 250 mls @ 3.75 mls/hr IV TITR GLORIA; 2 MCG /MIN PRN Reason: Protocol Last Titration: 09/04/17 10:15 Dose: 3 mcg/min, 5.62 mls/hr Fentanyl Citrate (Fentanyl Drip Premix) 2,000 mcg in 100 mls @ 7.28 mls/hr IV TITR GLORIA; 1 MCG/KG/HR PRN Reason: Protocol Last Admin: 09/04/17 07:16 Dose: 2 mcg/kg/hr, 14.56 mls/hr Linezolid (Zyvox 600mg/300ml) 600 mg in 300 mls @ 300 mls/hr IV Q12HR [facility] Last Admin: 09/04/17 10:06 Dose: 300 mls/hr Sodium Chloride (Nacl 0.9%) 100 mls @ 999 mls/hr IV ISIAH PRN PRN Reason: Hypotension Fluconazole (Diflucan) 200 mg in 100 mls @ 100 mls/hr IV Q24HR GLORIA PRN Reason: Protocol Amino Acids/Electrolytes/Dextrose (Tpn Adult) 1,800 mls @ 75 mls/hr IV DAILY@ 1999 GLORIA PRN Reason: Protocol Stop: 09/04/17 19:59 Last Admin: 09/03/17 20:06 Dose: 75 mls/hr Amino Acids/Electrolytes/Dextrose (Tpn Adult) 1,800 mls @ 75 mls/hr IV DAILY@ 1999 GLORIA PRN Reason: Protocol Stop: 09/05/17 19:59 Insulin Detemir (Levemir) 25 units SUB-Q DAILY [facility] Last Admin: 09/04/17 10:06 Dose: 25 units Insulin Human Regular (Novolin R) 0 units SUB-Q Q6HR [facility] PRN Reason: Protocol Last Admin: 09/04/17 06:31 Dose: 6 units Lorazepam (Ativan) 2 mg IV Q6H PRN PRN Reason: Agitation Last Admin: 08/30/17 09:09 Dose: 2 mg Multi-Ingred Cream/Lotion/Oil/Oint (Artificial Tears Ophth Oint) 1 applic OU Q4H PRN PRN Reason: Dry Eye(s) Ondansetron HCl (Zofran) 4 mg IV Q6H PRN PRN Reason: Nausea And Vomiting Last Admin: 08/16/17 22:50 Dose: 4 mg Pantoprazole Sodium (Protonix) 40 mg IV BID [facility] Last Admin: 09/04/17 10:06 Dose: 40 mg Review of Systems ROS unobtainable: due to endotracheal tube, due to mental status - Constitutional other Exam Vital Signs Pulse Resp BP Pulse Ox 80 18 66/41 98 08/08/17 13:00 08/08/17 13:00 08/08/17 13:00 08/08/17 13:00 - General physical appearance Positive: no distress, chronically ill, obese - Neck Positive: other (Obese neck, but trachea felt at midline and easily accessible.) - Respiratory Positive: normal expansion - Cardiovascular Rhythm: regular - Abdomen Abdomen: Present: soft, bowel sounds normal, other (Feeding tube in place) Results - Labs 09/04/17 04:32 09/04/17 04:32 Abnormal lab results 08/31/17 09/03/17 09/03/17 Range/Units 11:56 16:55 17:44 WBC (4.5-11.0) K/mm3 RBC (3.65-5.03) M/mm3 Hgb (10.1-14.3) gm/dl Hct (30.3-42.9) % RDW (13.2-15.2) % Lymphocytes % (Manual) (13.4-35.0) % Nucleated RBC % (0.0-0.9) % Seg Neutrophils # Man (1.8-7.7) K/mm3 Monocytes # (Manual) (0.0-0.8) K/mm3 ABG pO2 (80.0-90.0) mm Hg ABG Base Excess (-2.0-3.0) mmol/L ABG Hemoglobin (12.0-16.0) gm/dl Sodium (137-145) mmol/L Potassium (3.6-5.0) mmol/L Chloride (98-107) mmol/L BUN (7-17) mg/dL Creatinine (0.7-1.2) mg/dL Glucose (65-100) mg/dL POC Glucose 217 H (70-105) Calcium (8.4-10.2) mg/dL Crossmatch See Detail See Detail 09/03/17 09/04/17 09/04/17 Range/Units 23:56 03:47 04:32 WBC 44.7 H* (4.5-11.0) K/mm3 RBC 3.12 L (3.65-5.03) M/mm3 Hgb 8.7 L (10.1-14.3) gm/dl Hct 26.7 L (30.3-42.9) % RDW 23.5 H (13.2-15.2) % Lymphocytes % (Manual) 4.0 L (13.4-35.0) % Nucleated RBC % 2.0 H (0.0-0.9) % Seg Neutrophils # Man 30.8 H (1.8-7.7) K/mm3 Monocytes # (Manual) 2.2 H (0.0-0.8) K/mm3 ABG pO2 135.0 H (80.0-90.0) mm Hg ABG Base Excess -2.5 L (-2.0-3.0) mmol/L ABG Hemoglobin 7.9 L (12.0-16.0) gm/dl Sodium (137-145) mmol/L Potassium (3.6-5.0) mmol/L Chloride (98-107) mmol/L BUN (7-17) mg/dL Creatinine (0.7-1.2) mg/dL Glucose (65-100) mg/dL POC Glucose 193 H (70-105) Calcium (8.4-10.2) mg/dL Crossmatch 09/04/17 09/04/17 Range/Units 04:32 05:48 WBC (4.5-11.0) K/mm3 RBC (3.65-5.03) M/mm3 Hgb (10.1-14.3) gm/dl Hct (30.3-42.9) % RDW (13.2-15.2) % Lymphocytes % (Manual) (13.4-35.0) % Nucleated RBC % (0.0-0.9) % Seg Neutrophils # Man (1.8-7.7) K/mm3 Monocytes # (Manual) (0.0-0.8) K/mm3 ABG pO2 (80.0-90.0) mm Hg ABG Base Excess (-2.0-3.0) mmol/L ABG Hemoglobin (12.0-16.0) gm/dl Sodium 136 L (137-145) mmol/L Potassium 5.2 H D (3.6-5.0) mmol/L Chloride 94.2 L (98-107) mmol/L BUN 71 H (7-17) mg/dL Creatinine 2.3 H (0.7-1.2) mg/dL Glucose 235 H (65-100) mg/dL POC Glucose 329 H (70-105) Calcium 8.3 L (8.4-10.2) mg/dL Crossmatch Diabetes panel 09/04/17 Range/Units 04:32 Sodium 136 L (137-145) mmol/L Potassium 5.2 H D (3.6-5.0) mmol/L Chloride 94.2 L (98-107) mmol/L Carbon Dioxide 22 (22-30) mmol/L BUN 71 H (7-17) mg/dL Creatinine 2.3 H (0.7-1.2) mg/dL Glucose 235 H (65-100) mg/dL Calcium 8.3 L (8.4-10.2) mg/dL Calcium panel 09/04/17 Range/Units 04:32 Calcium 8.3 L (8.4-10.2) mg/dL Phosphorus 4.20 (2.5-4.5) mg/dL Pituitary panel 09/04/17 Range/Units 04:32 Sodium 136 L (137-145) mmol/L Potassium 5.2 H D (3.6-5.0) mmol/L Chloride 94.2 L (98-107) mmol/L Carbon Dioxide 22 (22-30) mmol/L BUN 71 H (7-17) mg/dL Creatinine 2.3 H (0.7-1.2) mg/dL Glucose 235 H (65-100) mg/dL Calcium 8.3 L (8.4-10.2) mg/dL Adrenal panel 09/04/17 Range/Units 04:32 Sodium 136 L (137-145) mmol/L Potassium 5.2 H D (3.6-5.0) mmol/L Chloride 94.2 L (98-107) mmol/L Carbon Dioxide 22 (22-30) mmol/L BUN 71 H (7-17) mg/dL Creatinine 2.3 H (0.7-1.2) mg/dL Glucose 235 H (65-100) mg/dL Calcium 8.3 L (8.4-10.2) mg/dL Assessment and Plan Patient with mechanical ventilation due to respiratory failure. Will board for tracheostomy. Consent obtained from .
[2017-09-04] MEDS: DIFLUCAN 200 MG/100 ML BAG IV SCH (14:09)
[2017-09-04] MEDS ORDERED: LEVEMIR SUB-Q ONE (15:00)
[2017-09-04] MEDS ORDERED: TPN ADULT 1,800 ML IV SCH (20:00)
[2017-09-04] MEDS: HEPARIN IV PRN (21:42)
[2017-09-04] MEDS: LEVOPHED 8 MG in NACL 0.9% 250ML 242 ML IV SCH (23:01)
--- NOTE | 2017-09-04 23:17 | Progress Note ---
Assessment and Plan - Patient Problems (1) Leukocytosis Current Visit: Yes Status: Acute Qualifiers: Leukocytosis type: L Plan to address problem: See notes above. make sure that PD access is clean also. see notes. Probably infection from the infected PD catheter. improving. back up again. up/down continue to monitor. (2) Anemia Current Visit: Yes Status: Acute Qualifiers: Anemia type: A Iron deficiency anemia type: I Vitamin B12 deficiency anemia type: V Folate deficiency anemia type: F Bone marrow failure anemia type: B Hemolytic anemia type: H Other causes of anemia: O Chronic kidney disease stage: C Plan to address problem: see notes , monitor labs,. see notes above. continue to monitor labs with you. blood transfusion. S/P replacement transfusion. fair. Subjective Date of service: 09/04/17 Principal diagnosis: Interval history: Patient seen today/examined, labs reviewed, case d/w she, and family.complaints of abdominal pain. Patient resting in bed in the ICU, post vascular procedure. labs reviewed, Reactive thrombocytosis, anemia of CD, leukocytosis from infection vs inflamatory process. Patient seen/examined, in bed in the ICU, on the vent post surgery.Labs reviewed , notes reviewed. will continue to monitor labs/patient with you. Replacement transfusion, if /when indicated. patient seen/examined, SBP75, on pressors., lethargic, on the vent, labs reviewed, wbc 39,000 Patient seen/examined, case reviewed, d/w her sister at the bed side. Patient seen/examined, labs reviewed, notes reviewed. severe septic shock from infected PD catheter The high wbc is all infection related. H?H low, and may get replacement transfusion with the next HD. Prognosis remain quite poor. Patient seen/examined, extubated, now on V Mask. labs reviewed. patient seen/examined, resting in bed, still some what lethargic . labs reviewed. Patient seen/examined, resting in bed., some difficulty with breathing./ lethargic. patient seen/examined, resting in bed, looked much better labs reviewed, and fair over all. Patient seen/examined, resting in bed, labs reviewed, case d/w her. Patient seen/examined, resting in bed on BIPAP., labs reviewed. patient seen/examined, resting in bed, on Bipap.labs reviewed, fairly stable. Patient seen today, resting in bed, labs reviewed, H/H low, and transfusion already ordered. Patient seen/examined, resting in bed, transferred back to the unit, due to resp failure. She is now on venting mask. had blood replacement done. Patient seen/examined in the ICU.labs reviewed. patient intubated this am. patient resting in bed.no new issues. Patient seen/examined in the ICU, on vent,Not readily responsive. patient seen, resting in bed, no new cbc ready.will order for today. Patient seen, resting in vent, labs reviewed.notes reviewed also. Objective - Constitutional Vitals: Vital Signs - 12hr 09/04/17 09/04/17 09/04/17 11:15 11:31 11:45 Temperature Pulse Rate 86 85 79 Pulse Rate [ Throughout] Respiratory 10 L 13 12 Rate Respiratory Rate [ Throughout] Blood Pressure 116/54 68/50 125/39 O2 Sat by Pulse Oximetry O2 Sat by Pulse Oximetry [ Throughout] 09/04/17 09/04/17 09/04/17 12:00 12:01 12:15 Temperature 98.8 F Pulse Rate 88 90 Pulse Rate [ Throughout] Respiratory 13 12 Rate Respiratory Rate [ Throughout] Blood Pressure 94/47 152/49 O2 Sat by Pulse 98 83 L Oximetry O2 Sat by Pulse Oximetry [ Throughout] 09/04/17 09/04/17 09/04/17 12:30 12:45 13:01 Temperature Pulse Rate 90 92 H 94 H Pulse Rate [ Throughout] Respiratory 10 L 13 Rate Respiratory Rate [ Throughout] Blood Pressure 117/37 117/37 61/34 O2 Sat by Pulse 76 L 100 Oximetry O2 Sat by Pulse Oximetry [ Throughout] 09/04/17 09/04/17 09/04/17 13:12 13:15 13:31 Temperature Pulse Rate 90 91 H 91 H Pulse Rate [ Throughout] Respiratory 10 L 11 L Rate Respiratory Rate [ Throughout] Blood Pressure 111/51 113/54 99/53 O2 Sat by Pulse 100 100 100 Oximetry O2 Sat by Pulse Oximetry [ Throughout] 09/04/17 09/04/17 09/04/17 13:45 14:01 14:15 Temperature Pulse Rate 93 H 89 87 Pulse Rate [ Throughout] Respiratory 12 14 10 L Rate Respiratory Rate [ Throughout] Blood Pressure 99/53 91/70 95/66 O2 Sat by Pulse 100 100 100 Oximetry O2 Sat by Pulse Oximetry [ Throughout] 09/04/17 09/04/17 09/04/17 14:31 14:45 15:01 Temperature Pulse Rate 89 89 90 Pulse Rate [ Throughout] Respiratory 10 L 10 L 11 L Rate Respiratory Rate [ Throughout] Blood Pressure 159/49 150/82 161/64 O2 Sat by Pulse 100 100 100 Oximetry O2 Sat by Pulse Oximetry [ Throughout] 09/04/17 09/04/17 09/04/17 15:15 15:30 15:45 Temperature Pulse Rate 89 90 89 Pulse Rate [ Throughout] Respiratory 11 L 8 L 9 L Rate Respiratory Rate [ Throughout] Blood Pressure 129/63 129/63 84/42 O2 Sat by Pulse 100 100 100 Oximetry O2 Sat by Pulse Oximetry [ Throughout] 09/04/17 09/04/17 09/04/17 16:00 16:01 16:15 Temperature 98.5 F Pulse Rate 89 96 H Pulse Rate [ Throughout] Respiratory 8 L 17 Rate Respiratory Rate [ Throughout] Blood Pressure 84/42 84/42 O2 Sat by Pulse 100 100 Oximetry O2 Sat by Pulse Oximetry [ Throughout] 09/04/17 09/04/17 09/04/17 16:31 16:45 17:01 Temperature Pulse Rate 89 87 88 Pulse Rate [ Throughout] Respiratory 9 L 8 L 8 L Rate Respiratory Rate [ Throughout] Blood Pressure 97/64 102/65 119/65 O2 Sat by Pulse 100 100 100 Oximetry O2 Sat by Pulse Oximetry [ Throughout] 09/04/17 09/04/17 09/04/17 17:15 17:31 17:45 Temperature Pulse Rate 89 89 88 Pulse Rate [ Throughout] Respiratory 10 L 10 L 9 L Rate Respiratory Rate [ Throughout] Blood Pressure 120/58 127/61 122/58 O2 Sat by Pulse 100 100 100 Oximetry O2 Sat by Pulse Oximetry [ Throughout] 09/04/17 09/04/17 09/04/17 17:50 18:00 18:15 Temperature 98.5 F Pulse Rate 71 89 85 Pulse Rate [ 80 Throughout] Respiratory 18 8 L 8 L Rate Respiratory 22 Rate [ Throughout] Blood Pressure 116/56 116/56 108/53 O2 Sat by Pulse 100 100 100 Oximetry O2 Sat by Pulse 100 Oximetry [ Throughout] 09/04/17 09/04/17 09/04/17 18:30 18:45 19:00 Temperature Pulse Rate 72 72 75 Pulse Rate [ 78 Throughout] Respiratory 13 13 16 Rate Respiratory 24 Rate [ Throughout] Blood Pressure 100/66 100/66 118/57 O2 Sat by Pulse 100 100 100 Oximetry O2 Sat by Pulse Oximetry [ Throughout] 09/04/17 09/04/17 09/04/17 19:15 19:16 19:30 Temperature Pulse Rate 73 75 74 Pulse Rate [ Throughout] Respiratory 12 Rate Respiratory Rate [ Throughout] Blood Pressure 111/61 111/61 119/71 O2 Sat by Pulse 100 Oximetry O2 Sat by Pulse Oximetry [ Throughout] 09/04/17 09/04/17 09/04/17 19:31 19:45 19:46 Temperature Pulse Rate 76 75 75 Pulse Rate [ Throughout] Respiratory 14 20 Rate Respiratory Rate [ Throughout] Blood Pressure 119/71 115/74 115/74 O2 Sat by Pulse 100 100 Oximetry O2 Sat by Pulse Oximetry [ Throughout] 09/04/17 09/04/17 09/04/17 19:47 20:00 20:01 Temperature 98.8 F Pulse Rate 75 74 75 Pulse Rate [ Throughout] Respiratory 17 Rate Respiratory Rate [ Throughout] Blood Pressure 115/74 95/43 95/43 O2 Sat by Pulse 100 100 Oximetry O2 Sat by Pulse Oximetry [ Throughout] 09/04/17 09/04/17 09/04/17 20:15 20:30 20:31 Temperature Pulse Rate 78 75 90 Pulse Rate [ Throughout] Respiratory 20 17 Rate Respiratory Rate [ Throughout] Blood Pressure 110/70 120/67 115/74 O2 Sat by Pulse 100 100 Oximetry O2 Sat by Pulse Oximetry [ Throughout] 09/04/17 09/04/17 09/04/17 20:45 20:56 21:00 Temperature Pulse Rate 77 77 70 Pulse Rate [ Throughout] Respiratory 20 Rate Respiratory Rate [ Throughout] Blood Pressure 111/66 111/66 118/70 O2 Sat by Pulse 100 Oximetry O2 Sat by Pulse Oximetry [ Throughout] 09/04/17 09/04/17 09/04/17 21:01 21:15 21:16 Temperature Pulse Rate 78 73 74 Pulse Rate [ Throughout] Respiratory 17 17 Rate Respiratory Rate [ Throughout] Blood Pressure 107/63 107/63 107/63 O2 Sat by Pulse 100 100 Oximetry O2 Sat by Pulse Oximetry [ Throughout] 09/04/17 09/04/17 21:30 21:45 Temperature 98.8 F Pulse Rate 97 H 91 H Pulse Rate [ Throughout] Respiratory 14 Rate Respiratory Rate [ Throughout] Blood Pressure 135/66 O2 Sat by Pulse Oximetry O2 Sat by Pulse 10 L Oximetry [ Throughout] General appearance: Present: severe distress - EENT Eyes: PERRL Ears: bilateral: normal - Neck Neck: supple, normal ROM - Respiratory Respiratory: bilateral: diminished (on the vent.) - Breasts Breasts: deferred - Cardiovascular Rhythm: regular Heart Sounds: Present: S1 & S2. Absent: gallop, rub Extremities: pulses intact, No edema, normal color, Full ROM - Gastrointestinal General gastrointestinal: Present: soft, non-distended, normal bowel sounds Rectal Exam: deferred - Genitourinary Female genitourinary: deferred - Integumentary Integumentary: clear, warm, dry - Neurologic Neurologic: moves all extremities - Labs CBC & Chem 7: 09/04/17 04:32 09/04/17 04:32 Labs: Abnormal lab results 09/03/17 09/03/17 09/04/17 Range/Units 17:44 23:56 03:47 WBC (4.5-11.0) K/mm3 RBC (3.65-5.03) M/mm3 Hgb (10.1-14.3) gm/dl Hct (30.3-42.9) % RDW (13.2-15.2) % Lymphocytes % (Manual) (13.4-35.0) % Nucleated RBC % (0.0-0.9) % Seg Neutrophils # Man (1.8-7.7) K/mm3 Monocytes # (Manual) (0.0-0.8) K/mm3 ABG pO2 135.0 H (80.0-90.0) mm Hg ABG Base Excess -2.5 L (-2.0-3.0) mmol/L ABG Hemoglobin 7.9 L (12.0-16.0) gm/dl Sodium (137-145) mmol/L Potassium (3.6-5.0) mmol/L Chloride (98-107) mmol/L BUN (7-17) mg/dL Creatinine (0.7-1.2) mg/dL Glucose (65-100) mg/dL POC Glucose 217 H 193 H (70-105) Calcium (8.4-10.2) mg/dL 09/04/17 09/04/17 09/04/17 Range/Units 04:32 04:32 05:48 WBC 44.7 H* (4.5-11.0) K/mm3 RBC 3.12 L (3.65-5.03) M/mm3 Hgb 8.7 L (10.1-14.3) gm/dl Hct 26.7 L (30.3-42.9) % RDW 23.5 H (13.2-15.2) % Lymphocytes % (Manual) 4.0 L (13.4-35.0) % Nucleated RBC % 2.0 H (0.0-0.9) % Seg Neutrophils # Man 30.8 H (1.8-7.7) K/mm3 Monocytes # (Manual) 2.2 H (0.0-0.8) K/mm3 ABG pO2 (80.0-90.0) mm Hg ABG Base Excess (-2.0-3.0) mmol/L ABG Hemoglobin (12.0-16.0) gm/dl Sodium 136 L (137-145) mmol/L Potassium 5.2 H D (3.6-5.0) mmol/L Chloride 94.2 L (98-107) mmol/L BUN 71 H (7-17) mg/dL Creatinine 2.3 H (0.7-1.2) mg/dL Glucose 235 H (65-100) mg/dL POC Glucose 329 H (70-105) Calcium 8.3 L (8.4-10.2) mg/dL 09/04/17 Range/Units 17:30 WBC (4.5-11.0) K/mm3 RBC (3.65-5.03) M/mm3 Hgb (10.1-14.3) gm/dl Hct (30.3-42.9) % RDW (13.2-15.2) % Lymphocytes % (Manual) (13.4-35.0) % Nucleated RBC % (0.0-0.9) % Seg Neutrophils # Man (1.8-7.7) K/mm3 Monocytes # (Manual) (0.0-0.8) K/mm3 ABG pO2 (80.0-90.0) mm Hg ABG Base Excess (-2.0-3.0) mmol/L ABG Hemoglobin (12.0-16.0) gm/dl Sodium (137-145) mmol/L Potassium (3.6-5.0) mmol/L Chloride (98-107) mmol/L BUN (7-17) mg/dL Creatinine (0.7-1.2) mg/dL Glucose (65-100) mg/dL POC Glucose 331 H (70-105) Calcium (8.4-10.2) mg/dL
[2017-09-05] MEDS: DUONEB *Not for PRN Use IH SCH ×4 (01:53→19:56)
[2017-09-05 04:32] LABS: Calcium 8.1 mg/dL (8.4-10.2); Chloride 94.7 mmol/L (98-107); Magnesium 1.9 mg/dL (1.7-2.3); Phosphorous 3.7 mg/dL (2.5-4.5); Potassium 3.7 mmol/L (3.6-5.0)
[2017-09-05 05:08] LABS: Hematocrit 24.6 % (30.3-42.9); Hemoglobin 8.1 gm/dl (10.1-14.3); Mean Corpuscular HGB Conc 33 % (30-34); Mean Corpuscular Hemoglobin 28 pg (28-32); Mean Corpuscular Volume 86 fl (79-97); Platelet Count 246 K/mm3 (140-440); Red Blood Count 2.87 M/mm3 (3.65-5.03)
[2017-09-05 05:15] LABS: Red Cell Distribution Width 23.3 % (13.2-15.2); White Blood Count 35.3 K/mm3 (4.5-11.0)
[2017-09-05] MEDS: fentaNYL DRIP Premix 2,000 MCG/100 ML BAG IV SCH ×2 (06:07→20:08)
[2017-09-05 06:45] LABS: Anisocytosis 2+; Basophils % (Manual) 0 % (0.0-1.8); Blastocytes % (Manual) 0 %; Diff Status Complete; Eosinophils % (Manual) 0 % (0.0-4.3); Nucleated Red Blood Cells 2.5 % (0.0-0.9); Total Cells Counted Percent 2.5
[2017-09-05] MEDS: DILAUDID IV PRN ×3 (07:47→16:34)
--- NOTE | 2017-09-05 08:35 | Progress Note ---
Assessment and Plan - Patient Problems (1) ESRD (end stage renal disease) on dialysis Current Visit: Yes Status: Acute Plan to address problem: Continue HD on MWF and Isolated UF on TTS. Patient is on TPN. (2) Hyperkalemia Current Visit: Yes Status: Acute Plan to address problem: K level is better today. (3) Anemia Current Visit: No Status: Chronic Qualifiers: Anemia type: due to chronic kidney disease Iron deficiency anemia type: I Vitamin B12 deficiency anemia type: V Folate deficiency anemia type: F Bone marrow failure anemia type: B Hemolytic anemia type: H Other causes of anemia: O Chronic kidney disease stage: on chronic dialysis Qualified Code(s ): N18.6 - End stage renal disease; D63.1 - Anemia in chronic kidney disease; Z99.2 - Dependence on renal dialysis Plan to address problem: S/p multiple units of PRBC. Epogen. (4) Hypotension Current Visit: Yes Status: Chronic Qualifiers: Hypotension type: H Trimester: T Plan to address problem: On Levophed. (5) Volume overload Current Visit: Yes Status: Acute Qualifiers: Hypervolemia type: H Plan to address problem: UF as tolerated. (6) Leukocytosis Current Visit: Yes Status: Acute Qualifiers: Leukocytosis type: unspecified Qualified Code(s): D72.829 - Elevated white blood cell count, unspecified (7) Acute respiratory failure with hypoxemia Current Visit: Yes Status: Acute Plan to address problem: On the vent. (8) Sepsis Current Visit: Yes Status: Acute Qualifiers: Sepsis type: S Subjective Date of service: 09/05/17 Principal diagnosis: Interval history: Patient was seen and examined at the bedside. Patient remain intubated. Objective - Vital Signs Vital signs: Vital Signs - 12hr 09/04/17 09/04/17 09/04/17 20:45 20:56 21:00 Temperature Pulse Rate 77 77 70 Pulse Rate [ Throughout] Respiratory 20 Rate Respiratory Rate [ Throughout] Blood Pressure 111/66 111/66 118/70 O2 Sat by Pulse 100 Oximetry O2 Sat by Pulse Oximetry [ Throughout] 09/04/17 09/04/17 09/04/17 21:01 21:15 21:16 Temperature Pulse Rate 78 73 74 Pulse Rate [ Throughout] Respiratory 17 17 Rate Respiratory Rate [ Throughout] Blood Pressure 107/63 107/63 107/63 O2 Sat by Pulse 100 100 Oximetry O2 Sat by Pulse Oximetry [ Throughout] 09/04/17 09/04/17 09/04/17 21:21 21:30 21:31 Temperature Pulse Rate 76 97 H 86 Pulse Rate [ Throughout] Respiratory 16 14 Rate Respiratory Rate [ Throughout] Blood Pressure 111/81 57/26 O2 Sat by Pulse 100 100 Oximetry O2 Sat by Pulse Oximetry [ Throughout] 09/04/17 09/04/17 09/04/17 21:45 22:01 22:15 Temperature 98.8 F Pulse Rate 89 89 94 H Pulse Rate [ Throughout] Respiratory 15 17 19 Rate Respiratory Rate [ Throughout] Blood Pressure 135/66 144/110 144/110 O2 Sat by Pulse 100 100 100 Oximetry O2 Sat by Pulse 10 L Oximetry [ Throughout] 09/04/17 09/04/17 09/04/17 22:30 22:45 23:00 Temperature Pulse Rate 91 H 92 H 91 H Pulse Rate [ Throughout] Respiratory 14 15 16 Rate Respiratory Rate [ Throughout] Blood Pressure 119/69 111/79 120/75 O2 Sat by Pulse 100 100 100 Oximetry O2 Sat by Pulse Oximetry [ Throughout] 09/04/17 09/04/17 09/04/17 23:15 23:31 23:45 Temperature Pulse Rate 89 92 H 86 Pulse Rate [ Throughout] Respiratory 20 20 15 Rate Respiratory Rate [ Throughout] Blood Pressure 120/84 111/79 120/97 O2 Sat by Pulse 100 100 100 Oximetry O2 Sat by Pulse Oximetry [ Throughout] 09/05/17 09/05/17 09/05/17 00:00 00:01 00:15 Temperature Pulse Rate 87 86 Pulse Rate [ Throughout] Respiratory 13 13 Rate Respiratory Rate [ Throughout] Blood Pressure 120/97 120/97 O2 Sat by Pulse 100 100 100 Oximetry O2 Sat by Pulse Oximetry [ Throughout] 09/05/17 09/05/17 09/05/17 00:31 00:42 00:45 Temperature Pulse Rate 85 86 87 Pulse Rate [ Throughout] Respiratory 20 20 Rate Respiratory Rate [ Throughout] Blood Pressure 115/76 115/76 115/76 O2 Sat by Pulse 100 100 100 Oximetry O2 Sat by Pulse Oximetry [ Throughout] 09/05/17 09/05/17 09/05/17 01:01 01:15 01:31 Temperature Pulse Rate 82 88 81 Pulse Rate [ Throughout] Respiratory 12 21 20 Rate Respiratory Rate [ Throughout] Blood Pressure 118/61 131/40 164/57 O2 Sat by Pulse 100 100 100 Oximetry O2 Sat by Pulse Oximetry [ Throughout] 09/05/17 09/05/17 09/05/17 01:45 01:53 02:01 Temperature Pulse Rate 86 83 Pulse Rate [ 84 Throughout] Respiratory 20 10 L Rate Respiratory 20 Rate [ Throughout] Blood Pressure 153/73 125/50 O2 Sat by Pulse 100 100 Oximetry O2 Sat by Pulse Oximetry [ Throughout] 09/05/17 09/05/17 09/05/17 02:05 02:15 02:31 Temperature Pulse Rate 83 81 Pulse Rate [ 89 Throughout] Respiratory 20 20 Rate Respiratory 20 Rate [ Throughout] Blood Pressure 125/50 131/56 O2 Sat by Pulse 100 100 Oximetry O2 Sat by Pulse Oximetry [ Throughout] 09/05/17 09/05/17 09/05/17 02:45 03:01 03:15 Temperature Pulse Rate 81 82 82 Pulse Rate [ Throughout] Respiratory 19 20 20 Rate Respiratory Rate [ Throughout] Blood Pressure 131/56 138/35 148/43 O2 Sat by Pulse 100 100 100 Oximetry O2 Sat by Pulse Oximetry [ Throughout] 09/05/17 09/05/17 09/05/17 03:30 03:45 03:53 Temperature Pulse Rate 82 94 H 86 Pulse Rate [ Throughout] Respiratory 10 L 25 H Rate Respiratory Rate [ Throughout] Blood Pressure 138/52 138/52 O2 Sat by Pulse 100 100 100 Oximetry O2 Sat by Pulse Oximetry [ Throughout] 09/05/17 09/05/17 09/05/17 04:00 04:01 04:15 Temperature 99.0 F Pulse Rate 93 H 86 93 H Pulse Rate [ Throughout] Respiratory 18 19 Rate Respiratory Rate [ Throughout] Blood Pressure 83/45 83/45 O2 Sat by Pulse 100 100 99 Oximetry O2 Sat by Pulse Oximetry [ Throughout] 09/05/17 09/05/17 09/05/17 04:31 04:45 05:01 Temperature Pulse Rate 82 79 81 Pulse Rate [ Throughout] Respiratory 20 20 20 Rate Respiratory Rate [ Throughout] Blood Pressure 83/45 85/39 111/53 O2 Sat by Pulse 100 100 100 Oximetry O2 Sat by Pulse Oximetry [ Throughout] 09/05/17 09/05/17 09/05/17 05:15 05:30 05:45 Temperature Pulse Rate 81 89 80 Pulse Rate [ Throughout] Respiratory 19 13 21 Rate Respiratory Rate [ Throughout] Blood Pressure 117/56 85/64 87/54 O2 Sat by Pulse 100 100 100 Oximetry O2 Sat by Pulse Oximetry [ Throughout] 09/05/17 09/05/17 09/05/17 06:00 06:15 06:30 Temperature Pulse Rate 80 75 81 Pulse Rate [ Throughout] Respiratory 15 20 20 Rate Respiratory Rate [ Throughout] Blood Pressure 75/45 150/63 127/60 O2 Sat by Pulse 100 100 100 Oximetry O2 Sat by Pulse Oximetry [ Throughout] 09/05/17 09/05/17 09/05/17 06:45 07:00 07:15 Temperature Pulse Rate 78 78 79 Pulse Rate [ Throughout] Respiratory 20 19 20 Rate Respiratory Rate [ Throughout] Blood Pressure 132/55 140/56 133/63 O2 Sat by Pulse 100 100 100 Oximetry O2 Sat by Pulse Oximetry [ Throughout] 09/05/17 09/05/17 09/05/17 07:30 07:37 07:45 Temperature 98.3 F Pulse Rate 83 83 Pulse Rate [ Throughout] Respiratory 18 15 Rate Respiratory Rate [ Throughout] Blood Pressure 120/63 127/63 O2 Sat by Pulse 100 100 Oximetry O2 Sat by Pulse Oximetry [ Throughout] 09/05/17 09/05/17 09/05/17 08:01 08:15 08:16 Temperature Pulse Rate 86 90 Pulse Rate [ 97 H Throughout] Respiratory 15 17 Rate Respiratory 20 Rate [ Throughout] Blood Pressure 96/75 105/61 O2 Sat by Pulse 100 100 Oximetry O2 Sat by Pulse Oximetry [ Throughout] 09/05/17 08:17 Temperature Pulse Rate 97 H Pulse Rate [ Throughout] Respiratory Rate Respiratory Rate [ Throughout] Blood Pressure 96/75 O2 Sat by Pulse 100 Oximetry O2 Sat by Pulse Oximetry [ Throughout] - General Appearance General appearance: well-developed, appears stated age, obese, intubated (FiO2 40%), other (right IJ temp catheter) EENT: ATNC, PERRL Neck: supple Respiratory: Present: Other (coarse breath sounds) Cardiology: regular, S1S2, no murmurs Gastrointestinal: normoactive bowel sounds, obese Integumentary: no rash Neurologic: other (arousable) Musculoskeletal: other (2+ edema of both LEs noted, UE edema is better) - Lab 09/05/17 03:55 09/05/17 03:55 Most recent lab results ABG pH 7.415 pH Units (7.350-7.450) 09/04/17 03:47 ABG pCO2 34.6 mm Hg 09/04/17 03:47 ABG pO2 135.0 mm Hg (80.0-90.0) H 09/04/17 03:47 ABG HCO3 21.7 mmol/L (20.0-26.0) 09/04/17 03:47 ABG O2 Saturation 98.7 % (95.0-99.0) 09/04/17 03:47 Calcium 8.1 mg/dL (8.4-10.2) L 09/05/17 03:55 Phosphorus 3.70 mg/dL (2.5-4.5) 09/05/17 03:55 Magnesium 1.90 mg/dL (1.7-2.3) 09/05/17 03:55
[2017-09-05] MEDS: ATIVAN IV PRN ×2 (09:56→17:42)
[2017-09-05] MEDS ORDERED: LEVEMIR SUB-Q SCH ×2 (10:00→10:43)
--- NOTE | 2017-09-05 10:43 | Progress Note ---
Assessment and Plan Assessment and plan: 62 YO Female with MO, ESRD-PD (with PD cath in place )(Daily), HTN, OA, Ischemic Cardiomyopathy currently on Milrinone, Chronic Pain who came to ED with lightheaded and syncope, she c/o abdomnal pain x 2 days, was found to have hypotension, septic shock and intra-abdominal abscess. Sepsis secondary to peritonitis, Intra abdominal abscess and Bowel obstruction - Patient had completed 14 days of meropenem and diflucan - continue abx -ID on board - she has had the following procedures 08/31: Ex lap with abdominal wash out and closure 08/17: Ex lap with G tube placement, EGD, abdominal wash out and removal of PD Cath -taper steroids Acute hypoxic respiratory failure on MV > 96 hours continue ventilator, planned for tracheostomy, has failed extubation multiple times Activity rectal bleeding with severe acute blood loss anemia -EGD showed small gastric ulcer -sp multiple transfusions -- GI consult appreciated - Patient had CTA of abdomen and pelvis no active bleeding - transfuse to keep Hg above 8 given septic shock ESRD -continue HD per renal per femoral HD cath -needs perm cath when improved Septic shock. - continue IV pressors continue abx, ID input appreciated Ulcerative esophagitis/small gastric ulcer on EGD - IV pantoprazole Severe Protein calorie malnutrition - Continue with TPN Sacral and lower extremity wound, POA - continue wound care NSVT likely due to levophed, wean as tolerated cardiology input appreciated --DVT prophylaxis; SCDs - D/C Heparin because of GI bleed Plan of care discussed with the patient's family at bedside Disposition - continue ICU care Prognosis: guarded The high probability of a clinically significant, sudden or life threatening deterioration of the [cv, pulmonary and GI] system(s) required my full and direct attention, intervention and personal management. The aggregate critical care time was [33] minutes. This time is in addition to time spent performing reported procedures but includes the following: [] Data Review and interpretation [] Patient assessment and monitoring of vital signs [] Documentation [] Medication orders and management History Interval history: continues to be intubated, sedated, pressor dependent Hospitalist Physical - Physical exam Narrative exam: General.: Obese HEENT: Moist mucous membranes, extraocular muscles intact, no lymphadenopathy Neck: supple Cardiac: S1-S2 heard Lungs: clear to auscultation bilaterally Abdomen: soft, bowel sounds normal, other (obese, soft, dressing not removed) Extremities: no edema clubbing or cyanosis Skin: no rash or lesions Neurologic: Intubated, obeys commands, arousable - Constitutional Vitals: Temp Pulse Resp BP Pulse Ox 98.3 F 99 H 20 96/75 100 09/05/17 07:37 09/05/17 08:30 09/05/17 08:30 09/05/17 08:17 09/05/17 08:17 Results - Labs CBC & Chem 7: 09/05/17 03:55 09/05/17 03:55 Labs: Laboratory Last Values WBC 35.3 K/mm3 (4.5-11.0) H 09/05/17 03:55 RBC 2.87 M/mm3 (3.65-5.03) L 09/05/17 03:55 Hgb 8.1 gm/dl (10.1-14.3) L 09/05/17 03:55 Hct 24.6 % (30.3-42.9) L 09/05/17 03:55 MCV 86 fl (79-97) 09/05/17 03:55 MCH 28 pg (28-32) 09/05/17 03:55 MCHC 33 % (30-34) 09/05/17 03:55 RDW 23.3 % (13.2-15.2) H 09/05/17 03:55 Plt Count 246 K/mm3 (140-440) 09/05/17 03:55 Lymph % (Auto) Big Data Engineer 08/19/17 07:37 [place] % (Auto) Big Data Engineer 08/19/17 07:37 Eos % (Auto) Big Data Engineer 08/19/17 07:37 Baso % (Auto) Big Data Engineer 08/19/17 07:37 Lymph # Big Data Engineer 08/19/17 07:37 [place] # Big Data Engineer 08/19/17 07:37 Eos # Big Data Engineer 08/19/17 07:37 Baso # Big Data Engineer 08/19/17 07:37 Add Manual Diff Complete 09/05/17 03:55 Total Counted 200 09/05/17 03:55 Seg Neutrophils % Big Data Engineer 09/05/17 03:55 Seg Neuts % (Manual) 89.5 % (40.0-70.0) H 09/05/17 03:55 Band Neutrophils % 1.0 % 09/05/17 03:55 Lymphocytes % (Manual) 3.0 % (13.4-35.0) L 09/05/17 03:55 Reactive Lymphs % (Man) 0 % 09/05/17 03:55 Monocytes % (Manual) 2.0 % (0.0-7.3) 09/05/17 03:55 Eosinophils % (Manual) 0 % (0.0-4.3) 09/05/17 03:55 Basophils % (Manual) 0 % (0.0-1.8) 09/05/17 03:55 Metamyelocytes % 0.5 % 09/05/17 03:55 Myelocytes % 3.5 % 09/05/17 03:55 Promyelocytes % 0.5 % 09/05/17 03:55 Blast Cells % 0 % 09/05/17 03:55 Nucleated RBC % 2.5 % (0.0-0.9) H 09/05/17 03:55 Seg Neutrophils # Big Data Engineer 08/19/17 07:37 Seg Neutrophils # Man 31.6 K/mm3 (1.8-7.7) H 09/05/17 03:55 Band Neutrophils # 0.4 K/mm3 09/05/17 03:55 Lymphocytes # (Manual) 1.1 K/mm3 (1.2-5.4) L 09/05/17 03:55 Abs React Lymphs (Man) 0.0 K/mm3 09/05/17 03:55 Monocytes # (Manual) 0.7 K/mm3 (0.0-0.8) 09/05/17 03:55 Eosinophils # (Manual) 0.0 K/mm3 (0.0-0.4) 09/05/17 03:55 Basophils # (Manual) 0.0 K/mm3 (0.0-0.1) 09/05/17 03:55 Metamyelocytes # 0.2 K/mm3 09/05/17 03:55 Myelocytes # 1.2 K/mm3 09/05/17 03:55 Promyelocytes # 0.2 K/mm3 09/05/17 03:55 Blast Cells # 0.0 K/mm3 09/05/17 03:55 Pathologist Review Not Reportable 08/30/17 05:20 WBC Morphology Not Reportable 09/05/17 03:55 Hypersegmented Neuts Not Reportable 09/05/17 03:55 Hyposegmented Neuts Not Reportable 09/05/17 03:55 Hypogranular Neuts Not Reportable 09/05/17 03:55 Smudge Cells Not Reportable 09/05/17 03:55 Toxic Granulation Not Reportable 09/05/17 03:55 Toxic Vacuolation Not Reportable 09/05/17 03:55 Dohle Bodies Not Reportable 09/05/17 03:55 Pelger-Huet Anomaly Not Reportable 09/05/17 03:55 Ariel Rods Not Reportable 09/05/17 03:55 Platelet Estimate Appears normal 09/05/17 03:55 Clumped Platelets Not Reportable 09/05/17 03:55 Plt Clumps, EDTA Not Reportable 09/05/17 03:55 Large Platelets Not Reportable 09/05/17 03:55 Giant Platelets Not Reportable 09/05/17 03:55 Platelet Satelliting Not Reportable 09/05/17 03:55 Plt Morphology Comment Not Reportable 09/05/17 03:55 RBC Morphology Not Reportable 09/05/17 03:55 Dimorphic RBCs Not Reportable 09/05/17 03:55 Polychromasia Not Reportable 09/05/17 03:55 Hypochromasia Not Reportable 09/05/17 03:55 Poikilocytosis Not Reportable 09/05/17 03:55 Anisocytosis 2+ 09/05/17 03:55 Microcytosis Not Reportable 09/05/17 03:55 Macrocytosis Not Reportable 09/05/17 03:55 Spherocytes Not Reportable 09/05/17 03:55 Pappenheimer Bodies Not Reportable 09/05/17 03:55 Sickle Cells Not Reportable 09/05/17 03:55 Target Cells Not Reportable 09/05/17 03:55 Tear Drop Cells Not Reportable 09/05/17 03:55 Ovalocytes Not Reportable 09/05/17 03:55 Stomatocytes Rare 09/01/17 05:00 Helmet Cells Not Reportable 09/05/17 03:55 [place] Bodies Not Reportable 09/05/17 03:55 Rozet Rings Not Reportable 09/05/17 03:55 Yusuf Cells Not Reportable 09/05/17 03:55 Bite Cells Not Reportable 09/05/17 03:55 Crenated Cell Not Reportable 09/05/17 03:55 Elliptocytes Not Reportable 09/05/17 03:55 Acanthocytes (Spur) Not Reportable 09/05/17 03:55 Rouleaux Not Reportable 09/05/17 03:55 Hemoglobin C Crystals Not Reportable 09/05/17 03:55 Schistocytes Not Reportable 09/05/17 03:55 Malaria parasites Not Reportable 09/05/17 03:55 Jovanni Bodies Not Reportable 09/05/17 03:55 Hem Pathologist Commnt No 09/05/17 03:55 PT 15.1 Sec. (12.2-14.9) H 08/31/17 18:15 INR 1.13 (0.87-1.13) 08/31/17 18:15 APTT 28.7 Sec. (24.2-36.6) 08/31/17 18:15 POC ABG pH 7.335 (7.35-7.45) L 08/30/17 03:31 ABG pH 7.415 pH Units (7.350-7.450) 09/04/17 03:47 POC ABG pCO2 44.1 (35-45) 08/30/17 03:31 ABG pCO2 34.6 mm Hg 09/04/17 03:47 POC ABG pO2 117 (80-105) H 08/30/17 03:31 ABG pO2 135.0 mm Hg (80.0-90.0) H 09/04/17 03:47 POC ABG HCO3 23.5 08/30/17 03:31 ABG HCO3 21.7 mmol/L (20.0-26.0) 09/04/17 03:47 POC ABG Total CO2 25 08/30/17 03:31 POC ABG O2 Sat 98 08/30/17 03:31 ABG O2 Saturation 98.7 % (95.0-99.0) 09/04/17 03:47 ABG O2 Content 11.1 (0.0-44) 09/04/17 03:47 POC ABG Base Excess -2 08/30/17 03:31 ABG Base Excess -2.5 mmol/L (-2.0-3.0) L 09/04/17 03:47 ABG Hemoglobin 7.9 gm/dl (12.0-16.0) L 09/04/17 03:47 ABG Carboxyhemoglobin 1.9 % (0.0-5.0) 09/04/17 03:47 ABG Methemoglobin 0.5 % (0.0-1.5) 09/04/17 03:47 VBG pH 7.462 (7.320-7.420) H 08/08/17 14:52 Oxyhemoglobin 96.3 % (95.0-99.0) 09/04/17 03:47 FiO2 40 % 09/04/17 03:47 Sodium 136 mmol/L (137-145) L 09/05/17 03:55 Potassium 3.7 mmol/L (3.6-5.0) D 09/05/17 03:55 Chloride 94.7 mmol/L (98-107) L 09/05/17 03:55 Carbon Dioxide 25 mmol/L (22-30) 09/05/17 03:55 Anion Gap 20 mmol/L 09/05/17 03:55 BUN 55 mg/dL (7-17) H 09/05/17 03:55 Creatinine 1.8 mg/dL (0.7-1.2) H 09/05/17 03:55 Estimated GFR 35 ml/min 09/05/17 03:55 BUN/Creatinine Ratio 31 % 09/05/17 03:55 Glucose 193 mg/dL (65-100) H 09/05/17 03:55 POC Glucose 362 (70-105) H 09/05/17 00:15 Lactic Acid 1.60 mmol/L (0.7-2.0) 08/17/17 11:20 Calcium 8.1 mg/dL (8.4-10.2) L 09/05/17 03:55 Phosphorus 3.70 mg/dL (2.5-4.5) 09/05/17 03:55 Magnesium 1.90 mg/dL (1.7-2.3) 09/05/17 03:55 Total Bilirubin 0.90 mg/dL (0.1-1.2) 09/03/17 04:00 Direct Bilirubin 0.2 mg/dL (0-0.2) 08/08/17 14:11 Indirect Bilirubin 0.3 mg/dL 08/08/17 14:11 AST 40 units/L (5-40) 09/03/17 04:00 ALT 34 units/L (7-56) 09/03/17 04:00 Alkaline Phosphatase 265 units/L (35-129) H 09/03/17 04:00 Ammonia 25.0 umol/L (25-60) 08/08/17 14:52 Troponin T 0.132 ng/mL (0.00-0.029) H* 08/09/17 13:25 C-Reactive Protein 0.10 mg/dL (0.00-1.30) 09/03/17 05:30 NT-Pro-B Natriuret Pep 6156 pg/mL (0-900) H 08/08/17 14:11 Total Protein 4.4 g/dL (6.3-8.2) L 09/03/17 04:00 Albumin 1.7 g/dL (3.9-5) L 09/03/17 04:00 Albumin/Globulin Ratio 0.6 % 09/03/17 04:00 Triglycerides 180 mg/dL (2-149) H 09/03/17 04:00 Cholesterol 91 mg/dL (50-199) 08/08/17 21:23 LDL Cholesterol Direct 53 mg/dL (50-130) 08/08/17 21:23 HDL Cholesterol 26 mg/dL (40-59) L 08/08/17 21:23 Cholesterol/HDL Ratio 3.50 % 08/08/17 21:23 Amylase 45 units/L (27-131) 08/16/17 09:50 Lipase 34 units/L (13-60) 08/16/17 09:50 TSH 6.580 mlU/mL (0.270-4.200) H 08/08/17 14:22 Free T4 1.46 ng/dL (0.76-1.46) 08/08/17 14:22 Total Cortisol 30.1 mcg/dL () 08/13/17 06:14 Urine Color Yellow (Yellow) 08/08/17 20:15 Urine Turbidity Turbid (Clear) 08/08/17 20:15 Urine pH 8.0 (5.0-7.0) H 08/08/17 20:15 Ur Specific [place] 1.015 (1.003-1.030) 08/08/17 20:15 Urine Protein 100 mg/dl mg/dL (Negative) 08/08/17 20:15 Urine Glucose (UA) Neg mg/dL (Negative) 08/08/17 20:15 Urine Ketones Neg mg/dL (Negative) 08/08/17 20:15 Urine Blood Mod (Negative) 08/08/17 20:15 Urine Nitrite Neg (Negative) 08/08/17 20:15 Urine Bilirubin Neg (Negative) 08/08/17 20:15 Urine Urobilinogen < 2.0 mg/dL (<2.0) 08/08/17 20:15 Ur Leukocyte Esterase Lg (Negative) 08/08/17 20:15 Urine WBC (Auto) 24.0 /HPF (0.0-6.0) H 08/08/17 20:15 Urine RBC (Auto) 3.0 /HPF (0.0-6.0) 08/08/17 20:15 U Epithel Cells (Auto) 3.0 /HPF (0-13.0) 08/08/17 20:15 Urine Bacteria (Auto) 4+ /HPF (Negative) 08/08/17 20:15 Urine Mucus 3+ /HPF 08/08/17 20:15 Fluid Type Peritoneal 08/08/17 18:18 Fluid Color Straw 08/08/17 18:18 Fluid Appearance Clear 08/08/17 18:18 Fluid pH 7.74 08/08/17 18:18 Fluid WBC 4 /mm3 08/08/17 18:18 Fluid RBC 1 /mm3 08/08/17 18:18 Fluid Seg Neutrophils 12 % 08/08/17 18:18 Fluid Lymphocytes 0 % 08/08/17 18:18 Fluid Reactive Lymphs 0 % 08/08/17 18:18 Fluid Monocytes 1 % 08/08/17 18:18 Fluid Eosinophils 0 % 08/08/17 18:18 Fluid Basophils 0 % 08/08/17 18:18 Fluid Glucose 315 mg/dL (40-70) H 08/08/17 18:18 Random Vancomycin 19.5 ug/mL (0-40.0) 08/22/17 03:40 Hep Bs Antigen Non-reactive (Negative) 08/22/17 03:40 Hepatitis C Antibody Non-reactive (NonReactive) 08/22/17 03:40 Miscellaneous Test Flexitest 1 H 10/05/17 12:30 Blood Type O POSITIVE 09/03/17 16:55 Antibody Screen TNR 09/03/17 16:55 VAN Antibody Screen Negative 09/03/17 16:55 Crossmatch See Detail 09/03/17 16:55
[2017-09-05] MEDS ORDERED: NACL 0.9% 100 ML IV PRN ×2 (11:00→20:53)
[2017-09-05] MEDS: ZYVOX 600MG/300ML 600 MG/300 ML BAG IV SCH ×2 (11:18→22:31)
[2017-09-05] MEDS: PROTONIX IV SCH ×2 (11:18→22:32)
--- NOTE | 2017-09-05 11:27 | Progress Note ---
Assessment and Plan 62 y/o female originally admitted with hypotension, now back to ICU secondary to worsening hypotension, concern for sepsis, with acute respiratory failure post-op from ex-lap for abdominal distention and possible ileus, now back from OR after worsening respiratory failure, requiring re-intubation and wash out of abdomen 1. Family is agreeable to trach. Surgery arranging now. Family has agreed to LTACH placement as well. However, suggest that LTACH be firmly aware of abdominal issues and have surgery there that is willing to follow. 2. HD per renal, per charting, again today. 3. Continue PSV trials as tolerated. Rest on rate while on HD 4. Abx therapy as previously ordered per ID. 5. Wean levo for MAPS >60, have not been able to come off as she drops immediately. 6. Called by [facility] in regards to surgery and ID which I have spoken to surgery. Dropping to [id number] today 7. On rounds, discussed the possiblity of infected wells. Nursing to reassess, if skin is inflamed or irritated, will culture. ID on board and on broad spec abx therapy but no gram negative coverage Overall prognosis is guarded to poor CCT 31 Subjective Date of service: 09/05/17 Principal diagnosis: Interval history: No acute events overnight. Surgery evaluated patient on yesterday. Prepping for trach placement hopefully soon. Had HD yesterday and per nursing, plan for HD again today. Sugars are now elevated despite Levemir Objective Vital Signs - 12hr 09/04/17 09/04/17 09/05/17 23:31 23:45 00:00 Temperature Pulse Rate 92 H 86 Pulse Rate [ Throughout] Respiratory 20 15 Rate Respiratory Rate [ Throughout] Blood Pressure 111/79 120/97 O2 Sat by Pulse 100 100 100 Oximetry 09/05/17 09/05/17 09/05/17 00:01 00:15 00:31 Temperature Pulse Rate 87 86 85 Pulse Rate [ Throughout] Respiratory 13 13 20 Rate Respiratory Rate [ Throughout] Blood Pressure 120/97 120/97 115/76 O2 Sat by Pulse 100 100 100 Oximetry 09/05/17 09/05/17 09/05/17 00:42 00:45 01:01 Temperature Pulse Rate 86 87 82 Pulse Rate [ Throughout] Respiratory 20 12 Rate Respiratory Rate [ Throughout] Blood Pressure 115/76 115/76 118/61 O2 Sat by Pulse 100 100 100 Oximetry 09/05/17 09/05/17 09/05/17 01:15 01:31 01:45 Temperature Pulse Rate 88 81 86 Pulse Rate [ Throughout] Respiratory 21 20 20 Rate Respiratory Rate [ Throughout] Blood Pressure 131/40 164/57 153/73 O2 Sat by Pulse 100 100 100 Oximetry 09/05/17 09/05/17 09/05/17 01:53 02:01 02:05 Temperature Pulse Rate 83 Pulse Rate [ 84 89 Throughout] Respiratory 10 L Rate Respiratory 20 20 Rate [ Throughout] Blood Pressure 125/50 O2 Sat by Pulse 100 Oximetry 09/05/17 09/05/17 09/05/17 02:15 02:31 02:45 Temperature Pulse Rate 83 81 81 Pulse Rate [ Throughout] Respiratory 20 20 19 Rate Respiratory Rate [ Throughout] Blood Pressure 125/50 131/56 131/56 O2 Sat by Pulse 100 100 100 Oximetry 09/05/17 09/05/17 09/05/17 03:01 03:15 03:30 Temperature Pulse Rate 82 82 82 Pulse Rate [ Throughout] Respiratory 20 20 10 L Rate Respiratory Rate [ Throughout] Blood Pressure 138/35 148/43 138/52 O2 Sat by Pulse 100 100 100 Oximetry 09/05/17 09/05/17 09/05/17 03:45 03:53 04:00 Temperature 99.0 F Pulse Rate 94 H 86 93 H Pulse Rate [ Throughout] Respiratory 25 H Rate Respiratory Rate [ Throughout] Blood Pressure 138/52 O2 Sat by Pulse 100 100 100 Oximetry 09/05/17 09/05/17 09/05/17 04:01 04:15 04:31 Temperature Pulse Rate 86 93 H 82 Pulse Rate [ Throughout] Respiratory 18 19 20 Rate Respiratory Rate [ Throughout] Blood Pressure 83/45 83/45 83/45 O2 Sat by Pulse 100 99 100 Oximetry 09/05/17 09/05/17 09/05/17 04:45 05:01 05:15 Temperature Pulse Rate 79 81 81 Pulse Rate [ Throughout] Respiratory 20 20 19 Rate Respiratory Rate [ Throughout] Blood Pressure 85/39 111/53 117/56 O2 Sat by Pulse 100 100 100 Oximetry 09/05/17 09/05/17 09/05/17 05:30 05:45 06:00 Temperature Pulse Rate 89 80 80 Pulse Rate [ Throughout] Respiratory 13 21 15 Rate Respiratory Rate [ Throughout] Blood Pressure 85/64 87/54 75/45 O2 Sat by Pulse 100 100 100 Oximetry 09/05/17 09/05/17 09/05/17 06:15 06:30 06:45 Temperature Pulse Rate 75 81 78 Pulse Rate [ Throughout] Respiratory 20 20 20 Rate Respiratory Rate [ Throughout] Blood Pressure 150/63 127/60 132/55 O2 Sat by Pulse 100 100 100 Oximetry 09/05/17 09/05/17 09/05/17 07:00 07:15 07:30 Temperature Pulse Rate 78 79 83 Pulse Rate [ Throughout] Respiratory 19 20 18 Rate Respiratory Rate [ Throughout] Blood Pressure 140/56 133/63 120/63 O2 Sat by Pulse 100 100 100 Oximetry 09/05/17 09/05/17 09/05/17 07:37 07:45 08:00 Temperature 98.3 F Pulse Rate 83 Pulse Rate [ Throughout] Respiratory 15 Rate Respiratory Rate [ Throughout] Blood Pressure 127/63 O2 Sat by Pulse 100 100 Oximetry 09/05/17 09/05/17 09/05/17 08:01 08:15 08:16 Temperature Pulse Rate 86 90 Pulse Rate [ 97 H Throughout] Respiratory 15 17 Rate Respiratory 20 Rate [ Throughout] Blood Pressure 96/75 105/61 O2 Sat by Pulse 100 100 Oximetry 09/05/17 09/05/17 08:17 08:30 Temperature Pulse Rate 97 H Pulse Rate [ 99 H Throughout] Respiratory Rate Respiratory 20 Rate [ Throughout] Blood Pressure 96/75 O2 Sat by Pulse 100 Oximetry Constitutional: other (critically ill on vent, obese) Eyes: non-icteric ENT: oropharynx moist, other (NGT) Neck: supple, no lymphadenopathy Effort: mildly labored Ascultation: Bilateral: diminished breath sounds, rhonchi (occ) Cardiovascular: regular rate and rhythm Gastrointestinal: absent bowel sounds, non-tender, other (abdominal incision with new dressing noted, obese) Integumentary: normal Extremities: no cyanosis, pink and warm, edema (3+ bilateral LE edema) Neurologic: non-focal exam, pupils equal and round, other (somnolent) Psychiatric: mood appropriate, affect normal CBC and BMP: 09/05/17 03:55 09/05/17 03:55 ABG, PT/INR, D-dimer: ABG POC ABG pH 7.335 (7.35-7.45) L 08/30/17 03:31 ABG pH 7.415 pH Units (7.350-7.450) 09/04/17 03:47 POC ABG pCO2 44.1 (35-45) 08/30/17 03:31 ABG pCO2 34.6 mm Hg 09/04/17 03:47 POC ABG pO2 117 (80-105) H 08/30/17 03:31 ABG pO2 135.0 mm Hg (80.0-90.0) H 09/04/17 03:47 POC ABG HCO3 23.5 08/30/17 03:31 POC ABG Total CO2 25 08/30/17 03:31 POC ABG O2 Sat 98 08/30/17 03:31 ABG O2 Saturation 98.7 % (95.0-99.0) 09/04/17 03:47 PT/INR, D-dimer PT 15.1 Sec. (12.2-14.9) H 08/31/17 18:15 INR 1.13 (0.87-1.13) 08/31/17 18:15 Abnormal lab findings: Abnormal Labs 08/08/17 08/08/17 08/09/17 21:23 21:31 11:19 WBC 15.7 H RBC 2.93 L Hgb 8.7 L Hct 26.8 L MCV MCH RDW 19.2 H Plt Count Lymph % (Auto) [place] % (Auto) [place] # Seg Neutrophils % Seg Neuts % (Manual) Lymphocytes % (Manual) Monocytes % (Manual) Nucleated RBC % Seg Neutrophils # Seg Neutrophils # Man Lymphocytes # (Manual) Monocytes # (Manual) Eosinophils # (Manual) Basophils # (Manual) PT INR POC ABG pH 7.490 H ABG pH POC ABG pCO2 POC ABG pO2 122 H ABG pO2 ABG Base Excess ABG Hemoglobin Sodium Potassium Chloride Carbon Dioxide BUN Creatinine Glucose POC Glucose Calcium Phosphorus Magnesium AST ALT Alkaline Phosphatase Troponin T 0.133 H* C-Reactive Protein Total Protein Albumin Triglycerides HDL Cholesterol 26 L Miscellaneous Test Crossmatch 08/09/17 08/10/17 08/10/17 13:25 04:45 04:45 WBC 15.5 H RBC 2.97 L Hgb 8.9 L Hct 27.0 L MCV MCH RDW 19.2 H Plt Count Lymph % (Auto) [place] % (Auto) [place] # Seg Neutrophils % Seg Neuts % (Manual) 73.0 H Lymphocytes % (Manual) 7.0 L Monocytes % (Manual) 14.0 H Nucleated RBC % Seg Neutrophils # Seg Neutrophils # Man 11.3 H Lymphocytes # (Manual) 1.1 L Monocytes # (Manual) 2.2 H Eosinophils # (Manual) Basophils # (Manual) 0.2 H PT INR POC ABG pH ABG pH POC ABG pCO2 POC ABG pO2 ABG pO2 ABG Base Excess ABG Hemoglobin Sodium Potassium 3.3 L Chloride 97.3 L Carbon Dioxide 21 L BUN 23 H Creatinine 6.5 H Glucose POC Glucose Calcium 7.3 L Phosphorus Magnesium AST ALT Alkaline Phosphatase 138 H Troponin T 0.132 H* C-Reactive Protein Total Protein 4.8 L Albumin 1.4 L Triglycerides HDL Cholesterol Miscellaneous Test Crossmatch 08/11/17 08/11/17 08/12/17 04:00 04:00 05:50 WBC 19.3 H RBC 3.10 L Hgb 9.5 L Hct 28.2 L MCV MCH RDW 19.2 H Plt Count 463 H Lymph % (Auto) 7.5 L Valley % (Auto) 14.6 H [place] # 2.8 H Seg Neutrophils % 77.0 H Seg Neuts % (Manual) Lymphocytes % (Manual) Monocytes % (Manual) Nucleated RBC % Seg Neutrophils # 14.8 H Seg Neutrophils # Man Lymphocytes # (Manual) Monocytes # (Manual) Eosinophils # (Manual) Basophils # (Manual) PT INR POC ABG pH ABG pH POC ABG pCO2 POC ABG pO2 ABG pO2 ABG Base Excess ABG Hemoglobin Sodium 136 L 136 L Potassium 3.3 L Chloride 96.3 L 96.6 L Carbon Dioxide BUN 26 H 26 H Creatinine 6.4 H 6.2 H Glucose 135 H 133 H POC Glucose Calcium 8.2 L Phosphorus Magnesium 1.30 L AST ALT Alkaline Phosphatase 139 H Troponin T C-Reactive Protein Total Protein 5.5 L Albumin 1.7 L Triglycerides HDL Cholesterol Miscellaneous Test Crossmatch 08/12/17 08/12/17 08/12/17 05:50 05:50 05:50 WBC 20.1 H RBC 3.06 L Hgb 9.3 L Hct 27.9 L MCV MCH RDW 18.4 H Plt Count 471 H Lymph % (Auto) [place] % (Auto) [place] # Seg Neutrophils % Seg Neuts % (Manual) 85.0 H Lymphocytes % (Manual) 8.0 L Monocytes % (Manual) Nucleated RBC % Seg Neutrophils # Seg Neutrophils # Man 17.1 H Lymphocytes # (Manual) Monocytes # (Manual) 1.0 H Eosinophils # (Manual) Basophils # (Manual) PT 15.2 H INR 1.14 H POC ABG pH ABG pH POC ABG pCO2 POC ABG pO2 ABG pO2 ABG Base Excess ABG Hemoglobin Sodium Potassium Chloride Carbon Dioxide BUN Creatinine Glucose POC Glucose Calcium Phosphorus Magnesium AST ALT Alkaline Phosphatase Troponin T C-Reactive Protein 28.90 H Total Protein Albumin Triglycerides HDL Cholesterol Miscellaneous Test Crossmatch 08/12/17 08/13/17 08/13/17 16:23 06:14 06:14 WBC 21.8 H RBC 3.11 L Hgb 9.4 L Hct 28.2 L MCV MCH RDW 18.2 H Plt Count 492 H Lymph % (Auto) [place] % (Auto) [place] # Seg Neutrophils % Seg Neuts % (Manual) 73.0 H Lymphocytes % (Manual) 2.0 L Monocytes % (Manual) 15 H Nucleated RBC % Seg Neutrophils # Seg Neutrophils # Man 15.9 H Lymphocytes # (Manual) 0.4 L Monocytes # (Manual) 2.4 H Eosinophils # (Manual) Basophils # (Manual) PT INR POC ABG pH ABG pH POC ABG pCO2 POC ABG pO2 ABG pO2 ABG Base Excess ABG Hemoglobin Sodium Potassium Chloride 96.2 L Carbon Dioxide BUN 28 H Creatinine 5.6 H Glucose 114 H POC Glucose Calcium Phosphorus Magnesium AST ALT Alkaline Phosphatase Troponin T C-Reactive Protein 26.10 H Total Protein Albumin Triglycerides HDL Cholesterol Miscellaneous Test Crossmatch 08/13/17 08/14/17 08/14/17 16:39 04:00 04:00 WBC 22.1 H RBC 3.25 L Hgb 9.9 L Hct 29.5 L MCV MCH RDW 17.9 H Plt Count 525 H Lymph % (Auto) [place] % (Auto) [place] # Seg Neutrophils % Seg Neuts % (Manual) 74.0 H Lymphocytes % (Manual) 8.0 L Monocytes % (Manual) 12.0 H Nucleated RBC % Seg Neutrophils # Seg Neutrophils # Man 16.4 H Lymphocytes # (Manual) Monocytes # (Manual) 2.7 H Eosinophils # (Manual) Basophils # (Manual) PT INR POC ABG pH ABG pH POC ABG pCO2 POC ABG pO2 ABG pO2 ABG Base Excess ABG Hemoglobin Sodium 134 L Potassium 3.3 L Chloride 93.3 L Carbon Dioxide BUN 27 H Creatinine 6.0 H Glucose 152 H POC Glucose 151 H Calcium Phosphorus Magnesium AST ALT Alkaline Phosphatase Troponin T C-Reactive Protein Total Protein Albumin Triglycerides HDL Cholesterol Miscellaneous Test Crossmatch 08/15/17 08/16/17 08/16/17 09:10 09:50 09:50 WBC 31.1 H RBC 3.21 L Hgb 9.6 L Hct 29.3 L MCV MCH RDW 18.1 H Plt Count 642 H Lymph % (Auto) [place] % (Auto) [place] # Seg Neutrophils % Seg Neuts % (Manual) 74.0 H Lymphocytes % (Manual) 4.0 L Monocytes % (Manual) 9.0 H Nucleated RBC % Seg Neutrophils # Seg Neutrophils # Man 23.0 H Lymphocytes # (Manual) Monocytes # (Manual) 2.8 H Eosinophils # (Manual) Basophils # (Manual) PT INR POC ABG pH ABG pH POC ABG pCO2 POC ABG pO2 ABG pO2 ABG Base Excess ABG Hemoglobin Sodium 136 L 136 L Potassium 3.5 L Chloride 97.6 L 94.9 L Carbon Dioxide BUN 27 H 28 H Creatinine 5.6 H 5.5 H Glucose 117 H 103 H POC Glucose Calcium Phosphorus Magnesium AST ALT Alkaline Phosphatase 137 H Troponin T C-Reactive Protein Total Protein 5.4 L Albumin 1.5 L Triglycerides HDL Cholesterol Miscellaneous Test Crossmatch 08/16/17 08/17/17 08/17/17 09:50 05:00 06:26 WBC RBC Hgb Hct MCV MCH RDW Plt Count Lymph % (Auto) [place] % (Auto) [place] # Seg Neutrophils % Seg Neuts % (Manual) Lymphocytes % (Manual) Monocytes % (Manual) Nucleated RBC % Seg Neutrophils # Seg Neutrophils # Man Lymphocytes # (Manual) Monocytes # (Manual) Eosinophils # (Manual) Basophils # (Manual) PT INR POC ABG pH ABG pH POC ABG pCO2 POC ABG pO2 ABG pO2 ABG Base Excess ABG Hemoglobin Sodium 134 L Potassium 3.0 L Chloride 97.8 L Carbon Dioxide BUN 30 H Creatinine 5.3 H Glucose 147 H POC Glucose 165 H Calcium 7.5 L Phosphorus Magnesium AST ALT Alkaline Phosphatase Troponin T C-Reactive Protein 32.30 H Total Protein Albumin Triglycerides HDL Cholesterol Miscellaneous Test Crossmatch 08/17/17 08/17/17 08/17/17 10:56 11:20 11:20 WBC 39.1 H RBC 3.10 L Hgb 9.2 L Hct 28.6 L MCV MCH RDW 18.3 H Plt Count 580 H Lymph % (Auto) [place] % (Auto) [place] # Seg Neutrophils % Seg Neuts % (Manual) 89.5 H Lymphocytes % (Manual) 3.5 L Monocytes % (Manual) Nucleated RBC % Seg Neutrophils # Seg Neutrophils # Man 35.0 H Lymphocytes # (Manual) Monocytes # (Manual) 2.5 H Eosinophils # (Manual) Basophils # (Manual) 0.2 H PT INR POC ABG pH 7.464 H ABG pH POC ABG pCO2 34.1 L POC ABG pO2 75 L ABG pO2 ABG Base Excess ABG Hemoglobin Sodium Potassium Chloride Carbon Dioxide BUN Creatinine Glucose POC Glucose Calcium Phosphorus Magnesium AST ALT Alkaline Phosphatase Troponin T C-Reactive Protein Total Protein Albumin Triglycerides HDL Cholesterol Miscellaneous Test Flexitest 1 H Crossmatch 08/17/17 08/17/17 08/17/17 11:20 16:57 20:20 WBC 34.4 H RBC 2.81 L Hgb 8.4 L Hct 26.0 L MCV MCH RDW 17.8 H Plt Count 455 H Lymph % (Auto) [place] % (Auto) [place] # Seg Neutrophils % Seg Neuts % (Manual) Lymphocytes % (Manual) 3.5 L Monocytes % (Manual) Nucleated RBC % 5.0 H Seg Neutrophils # Seg Neutrophils # Man 16.5 H Lymphocytes # (Manual) Monocytes # (Manual) 1.0 H Eosinophils # (Manual) Basophils # (Manual) PT 16.0 H INR 1.29 H POC ABG pH ABG pH POC ABG pCO2 POC ABG pO2 ABG pO2 ABG Base Excess ABG Hemoglobin Sodium 135 L Potassium 2.9 L* Chloride Carbon Dioxide 20 L BUN 32 H Creatinine 5.4 H Glucose 129 H POC Glucose Calcium 7.5 L Phosphorus Magnesium 1.50 L AST 85 H ALT Alkaline Phosphatase Troponin T C-Reactive Protein Total Protein 4.0 L D Albumin 1.6 L Triglycerides HDL Cholesterol Miscellaneous Test Crossmatch 08/17/17 08/17/17 08/18/17 20:54 23:47 04:26 WBC RBC Hgb Hct MCV MCH RDW Plt Count Lymph % (Auto) [place] % (Auto) [place] # Seg Neutrophils % Seg Neuts % (Manual) Lymphocytes % (Manual) Monocytes % (Manual) Nucleated RBC % Seg Neutrophils # Seg Neutrophils # Man Lymphocytes # (Manual) Monocytes # (Manual) Eosinophils # (Manual) Basophils # (Manual) PT INR POC ABG pH 7.557 H ABG pH POC ABG pCO2 23.1 L 29.0 L POC ABG pO2 187 H 148 H ABG pO2 ABG Base Excess ABG Hemoglobin Sodium Potassium Chloride Carbon Dioxide BUN Creatinine Glucose POC Glucose 188 H Calcium Phosphorus Magnesium AST ALT Alkaline Phosphatase Troponin T C-Reactive Protein Total Protein Albumin Triglycerides HDL Cholesterol Miscellaneous Test Crossmatch 08/18/17 08/18/17 08/18/17 05:51 11:44 17:07 WBC RBC Hgb Hct MCV MCH RDW Plt Count Lymph % (Auto) [place] % (Auto) [place] # Seg Neutrophils % Seg Neuts % (Manual) Lymphocytes % (Manual) Monocytes % (Manual) Nucleated RBC % Seg Neutrophils # Seg Neutrophils # Man Lymphocytes # (Manual) Monocytes # (Manual) Eosinophils # (Manual) Basophils # (Manual) PT INR POC ABG pH ABG pH POC ABG pCO2 POC ABG pO2 ABG pO2 ABG Base Excess ABG Hemoglobin Sodium Potassium Chloride Carbon Dioxide BUN Creatinine Glucose POC Glucose 202 H 195 H 182 H Calcium Phosphorus Magnesium AST ALT Alkaline Phosphatase Troponin T C-Reactive Protein Total Protein Albumin Triglycerides HDL Cholesterol Miscellaneous Test Crossmatch 08/18/17 08/18/17 08/18/17 23:45 Unknown Unknown WBC 39.0 H RBC 2.84 L Hgb 8.4 L Hct 26.5 L MCV MCH RDW 18.0 H Plt Count 476 H Lymph % (Auto) [place] % (Auto) [place] # Seg Neutrophils % Seg Neuts % (Manual) Lymphocytes % (Manual) 7.0 L Monocytes % (Manual) 10.0 H Nucleated RBC % 3.0 H Seg Neutrophils # Seg Neutrophils # Man 15.6 H Lymphocytes # (Manual) Monocytes # (Manual) 3.9 H Eosinophils # (Manual) Basophils # (Manual) PT INR POC ABG pH ABG pH POC ABG pCO2 POC ABG pO2 ABG pO2 ABG Base Excess ABG Hemoglobin Sodium Potassium Chloride Carbon Dioxide 19 L BUN 34 H Creatinine 5.6 H Glucose 201 H POC Glucose 163 H Calcium 7.8 L Phosphorus 1.90 L D Magnesium 1.60 L AST ALT Alkaline Phosphatase Troponin T C-Reactive Protein Total Protein Albumin Triglycerides HDL Cholesterol Miscellaneous Test Crossmatch 08/19/17 08/19/17 08/19/17 04:18 05:00 05:00 WBC 40.0 H RBC 2.46 L Hgb 7.3 L Hct 22.6 L MCV MCH RDW 18.1 H Plt Count Lymph % (Auto) [place] % (Auto) [place] # Seg Neutrophils % Seg Neuts % (Manual) Lymphocytes % (Manual) 8.0 L Monocytes % (Manual) Nucleated RBC % 2.0 H Seg Neutrophils # Seg Neutrophils # Man 16.4 H Lymphocytes # (Manual) Monocytes # (Manual) 1.2 H Eosinophils # (Manual) 1.2 H Basophils # (Manual) PT INR POC ABG pH 7.463 H ABG pH POC ABG pCO2 29.7 L POC ABG pO2 134 H ABG pO2 ABG Base Excess ABG Hemoglobin Sodium Potassium 5.1 H D Chloride Carbon Dioxide 20 L BUN 40 H Creatinine 5.3 H Glucose 128 H POC Glucose Calcium 7.8 L Phosphorus 1.90 L Magnesium AST ALT Alkaline Phosphatase Troponin T C-Reactive Protein Total Protein Albumin Triglycerides HDL Cholesterol Miscellaneous Test Crossmatch 08/19/17 08/19/17 08/19/17 05:19 07:37 09:52 WBC 45.0 H* RBC 2.50 L Hgb 7.5 L Hct 24.5 L MCV 98 H MCH RDW 18.4 H Plt Count Lymph % (Auto) [place] % (Auto) [place] # Seg Neutrophils % Seg Neuts % (Manual) 81.5 H Lymphocytes % (Manual) 4.0 L Monocytes % (Manual) Nucleated RBC % 1.0 H Seg Neutrophils # Seg Neutrophils # Man 36.7 H Lymphocytes # (Manual) Monocytes # (Manual) Eosinophils # (Manual) Basophils # (Manual) PT INR POC ABG pH ABG pH POC ABG pCO2 POC ABG pO2 ABG pO2 ABG Base Excess ABG Hemoglobin Sodium Potassium Chloride Carbon Dioxide BUN Creatinine Glucose POC Glucose 142 H Calcium Phosphorus Magnesium AST ALT Alkaline Phosphatase Troponin T C-Reactive Protein 34.20 H Total Protein Albumin Triglycerides HDL Cholesterol Miscellaneous Test Crossmatch 08/19/17 08/19/17 08/20/17 11:16 18:12 00:35 WBC RBC Hgb Hct MCV MCH RDW Plt Count Lymph % (Auto) [place] % (Auto) [place] # Seg Neutrophils % Seg Neuts % (Manual) Lymphocytes % (Manual) Monocytes % (Manual) Nucleated RBC % Seg Neutrophils # Seg Neutrophils # Man Lymphocytes # (Manual) Monocytes # (Manual) Eosinophils # (Manual) Basophils # (Manual) PT INR POC ABG pH ABG pH POC ABG pCO2 POC ABG pO2 ABG pO2 ABG Base Excess ABG Hemoglobin Sodium Potassium Chloride Carbon Dioxide BUN Creatinine Glucose POC Glucose 143 H 137 H 164 H Calcium Phosphorus Magnesium AST ALT Alkaline Phosphatase Troponin T C-Reactive Protein Total Protein Albumin Triglycerides HDL Cholesterol Miscellaneous Test Crossmatch 08/20/17 08/20/17 08/20/17 03:20 03:20 04:00 WBC 48.0 H* RBC 2.55 L Hgb 7.6 L Hct 23.4 L MCV MCH RDW 18.4 H Plt Count Lymph % (Auto) [place] % (Auto) [place] # Seg Neutrophils % Seg Neuts % (Manual) 90.0 H Lymphocytes % (Manual) 3.0 L Monocytes % (Manual) Nucleated RBC % Seg Neutrophils # Seg Neutrophils # Man 43.2 H Lymphocytes # (Manual) Monocytes # (Manual) 1.4 H Eosinophils # (Manual) 0.5 H Basophils # (Manual) PT INR POC ABG pH 7.499 H ABG pH POC ABG pCO2 29.1 L POC ABG pO2 ABG pO2 ABG Base Excess ABG Hemoglobin Sodium 135 L Potassium Chloride Carbon Dioxide BUN 28 H Creatinine 4.0 H Glucose 140 H POC Glucose Calcium 8.0 L Phosphorus 1.70 L Magnesium 1.60 L AST ALT Alkaline Phosphatase Troponin T C-Reactive Protein Total Protein Albumin Triglycerides HDL Cholesterol Miscellaneous Test Crossmatch 08/20/17 08/20/17 08/20/17 05:02 12:05 13:12 WBC RBC Hgb Hct MCV MCH RDW Plt Count Lymph % (Auto) [place] % (Auto) [place] # Seg Neutrophils % Seg Neuts % (Manual) Lymphocytes % (Manual) Monocytes % (Manual) Nucleated RBC % Seg Neutrophils # Seg Neutrophils # Man Lymphocytes # (Manual) Monocytes # (Manual) Eosinophils # (Manual) Basophils # (Manual) PT INR POC ABG pH 7.537 H ABG pH POC ABG pCO2 27.9 L POC ABG pO2 79 L ABG pO2 ABG Base Excess ABG Hemoglobin Sodium Potassium Chloride Carbon Dioxide BUN Creatinine Glucose POC Glucose 158 H 203 H Calcium Phosphorus Magnesium AST ALT Alkaline Phosphatase Troponin T C-Reactive Protein Total Protein Albumin Triglycerides HDL Cholesterol Miscellaneous Test Crossmatch 08/20/17 08/21/17 08/21/17 17:13 00:47 03:14 WBC RBC Hgb Hct MCV MCH RDW Plt Count Lymph % (Auto) [place] % (Auto) [place] # Seg Neutrophils % Seg Neuts % (Manual) Lymphocytes % (Manual) Monocytes % (Manual) Nucleated RBC % Seg Neutrophils # Seg Neutrophils # Man Lymphocytes # (Manual) Monocytes # (Manual) Eosinophils # (Manual) Basophils # (Manual) PT INR POC ABG pH 7.481 H ABG pH POC ABG pCO2 29.6 L POC ABG pO2 ABG pO2 ABG Base Excess ABG Hemoglobin Sodium Potassium Chloride Carbon Dioxide BUN Creatinine Glucose POC Glucose 188 H 109 H Calcium Phosphorus Magnesium AST ALT Alkaline Phosphatase Troponin T C-Reactive Protein Total Protein Albumin Triglycerides HDL Cholesterol Miscellaneous Test Crossmatch 08/21/17 08/21/17 08/21/17 05:05 06:50 06:50 WBC 44.7 H* RBC 2.41 L Hgb 7.1 L Hct 22.1 L MCV MCH RDW 18.3 H Plt Count Lymph % (Auto) [place] % (Auto) [place] # Seg Neutrophils % Seg Neuts % (Manual) 89.0 H Lymphocytes % (Manual) 0 L Monocytes % (Manual) Nucleated RBC % 1.0 H Seg Neutrophils # Seg Neutrophils # Man 39.8 H Lymphocytes # (Manual) 0.0 L Monocytes # (Manual) 1.3 H Eosinophils # (Manual) Basophils # (Manual) PT INR POC ABG pH ABG pH POC ABG pCO2 POC ABG pO2 ABG pO2 ABG Base Excess ABG Hemoglobin Sodium 135 L Potassium Chloride Carbon Dioxide BUN 39 H Creatinine 4.4 H Glucose 147 H POC Glucose 166 H Calcium 8.1 L Phosphorus Magnesium AST ALT < 5 L Alkaline Phosphatase 164 H Troponin T C-Reactive Protein Total Protein 4.7 L Albumin 1.4 L Triglycerides HDL Cholesterol Miscellaneous Test Crossmatch 08/21/17 08/21/17 08/21/17 08:00 12:21 17:02 WBC RBC Hgb Hct MCV MCH RDW Plt Count Lymph % (Auto) [place] % (Auto) [place] # Seg Neutrophils % Seg Neuts % (Manual) Lymphocytes % (Manual) Monocytes % (Manual) Nucleated RBC % Seg Neutrophils # Seg Neutrophils # Man Lymphocytes # (Manual) Monocytes # (Manual) Eosinophils # (Manual) Basophils # (Manual) PT INR POC ABG pH ABG pH POC ABG pCO2 POC ABG pO2 ABG pO2 ABG Base Excess ABG Hemoglobin Sodium Potassium Chloride Carbon Dioxide BUN Creatinine Glucose POC Glucose 147 H 135 H Calcium Phosphorus Magnesium AST ALT Alkaline Phosphatase Troponin T C-Reactive Protein Total Protein Albumin Triglycerides HDL Cholesterol Miscellaneous Test Crossmatch See Detail 08/21/17 08/22/17 08/22/17 23:38 03:40 03:40 WBC 42.5 H* RBC 2.88 L Hgb 8.5 L Hct 26.3 L MCV MCH RDW 17.9 H Plt Count Lymph % (Auto) [place] % (Auto) [place] # Seg Neutrophils % Seg Neuts % (Manual) Lymphocytes % (Manual) 5.0 L Monocytes % (Manual) Nucleated RBC % Seg Neutrophils # Seg Neutrophils # Man 19.6 H Lymphocytes # (Manual) Monocytes # (Manual) 2.6 H Eosinophils # (Manual) Basophils # (Manual) PT INR POC ABG pH ABG pH POC ABG pCO2 POC ABG pO2 ABG pO2 ABG Base Excess ABG Hemoglobin Sodium Potassium 3.3 L D Chloride Carbon Dioxide BUN 27 H Creatinine 2.9 H Glucose 144 H POC Glucose 251 H Calcium 8.0 L Phosphorus 2.40 L Magnesium AST ALT Alkaline Phosphatase Troponin T C-Reactive Protein Total Protein Albumin Triglycerides HDL Cholesterol Miscellaneous Test Crossmatch 08/22/17 08/22/17 08/22/17 06:37 08:50 11:25 WBC RBC Hgb Hct MCV MCH RDW Plt Count Lymph % (Auto) [place] % (Auto) [place] # Seg Neutrophils % Seg Neuts % (Manual) Lymphocytes % (Manual) Monocytes % (Manual) Nucleated RBC % Seg Neutrophils # Seg Neutrophils # Man Lymphocytes # (Manual) Monocytes # (Manual) Eosinophils # (Manual) Basophils # (Manual) PT INR POC ABG pH ABG pH POC ABG pCO2 POC ABG pO2 ABG pO2 ABG Base Excess ABG Hemoglobin Sodium Potassium Chloride Carbon Dioxide BUN Creatinine Glucose POC Glucose 152 H 175 H Calcium Phosphorus Magnesium AST ALT Alkaline Phosphatase Troponin T C-Reactive Protein Total Protein Albumin Triglycerides HDL Cholesterol Miscellaneous Test Flexitest 1 H Crossmatch 08/22/17 08/22/17 08/22/17 16:25 17:56 23:03 WBC RBC Hgb Hct MCV MCH RDW Plt Count Lymph % (Auto) [place] % (Auto) [place] # Seg Neutrophils % Seg Neuts % (Manual) Lymphocytes % (Manual) Monocytes % (Manual) Nucleated RBC % Seg Neutrophils # Seg Neutrophils # Man Lymphocytes # (Manual) Monocytes # (Manual) Eosinophils # (Manual) Basophils # (Manual) PT INR POC ABG pH ABG pH POC ABG pCO2 POC ABG pO2 ABG pO2 ABG Base Excess ABG Hemoglobin Sodium Potassium Chloride Carbon Dioxide BUN Creatinine Glucose POC Glucose 232 H 192 H Calcium Phosphorus Magnesium AST ALT Alkaline Phosphatase Troponin T C-Reactive Protein 30.70 H Total Protein Albumin Triglycerides HDL Cholesterol Miscellaneous Test Crossmatch 08/23/17 08/23/17 08/23/17 05:36 08:50 12:14 WBC RBC Hgb Hct MCV MCH RDW Plt Count Lymph % (Auto) [place] % (Auto) [place] # Seg Neutrophils % Seg Neuts % (Manual) Lymphocytes % (Manual) Monocytes % (Manual) Nucleated RBC % Seg Neutrophils # Seg Neutrophils # Man Lymphocytes # (Manual) Monocytes # (Manual) Eosinophils # (Manual) Basophils # (Manual) PT INR POC ABG pH ABG pH POC ABG pCO2 POC ABG pO2 ABG pO2 ABG Base Excess ABG Hemoglobin Sodium Potassium Chloride 107.1 H Carbon Dioxide BUN 49 H Creatinine 3.3 H Glucose 172 H POC Glucose 206 H 238 H Calcium Phosphorus Magnesium 2.40 H AST ALT Alkaline Phosphatase Troponin T C-Reactive Protein Total Protein Albumin Triglycerides HDL Cholesterol Miscellaneous Test Crossmatch 08/23/17 08/23/17 08/24/17 17:21 23:13 04:00 WBC 34.2 H RBC 2.86 L Hgb 8.4 L Hct 25.9 L MCV MCH RDW 17.9 H Plt Count Lymph % (Auto) [place] % (Auto) [place] # Seg Neutrophils % Seg Neuts % (Manual) 85.0 H Lymphocytes % (Manual) 0.5 L Monocytes % (Manual) Nucleated RBC % 1.0 H Seg Neutrophils # Seg Neutrophils # Man 29.1 H Lymphocytes # (Manual) 0.2 L Monocytes # (Manual) 2.4 H Eosinophils # (Manual) Basophils # (Manual) PT INR POC ABG pH ABG pH POC ABG pCO2 POC ABG pO2 ABG pO2 ABG Base Excess ABG Hemoglobin Sodium Potassium Chloride Carbon Dioxide BUN Creatinine Glucose POC Glucose 226 H 183 H Calcium Phosphorus Magnesium AST ALT Alkaline Phosphatase Troponin T C-Reactive Protein Total Protein Albumin Triglycerides HDL Cholesterol Miscellaneous Test Crossmatch 08/24/17 08/24/17 08/24/17 05:06 09:30 12:04 WBC RBC Hgb Hct MCV MCH RDW Plt Count Lymph % (Auto) [place] % (Auto) [place] # Seg Neutrophils % Seg Neuts % (Manual) Lymphocytes % (Manual) Monocytes % (Manual) Nucleated RBC % Seg Neutrophils # Seg Neutrophils # Man Lymphocytes # (Manual) Monocytes # (Manual) Eosinophils # (Manual) Basophils # (Manual) PT INR POC ABG pH ABG pH POC ABG pCO2 POC ABG pO2 ABG pO2 ABG Base Excess ABG Hemoglobin Sodium Potassium Chloride Carbon Dioxide BUN 46 H Creatinine 2.5 H Glucose 176 H POC Glucose 201 H 181 H Calcium Phosphorus Magnesium AST ALT Alkaline Phosphatase Troponin T C-Reactive Protein Total Protein Albumin Triglycerides HDL Cholesterol Miscellaneous Test Crossmatch 08/24/17 08/24/17 08/25/17 18:04 23:05 05:05 WBC RBC Hgb Hct MCV MCH RDW Plt Count Lymph % (Auto) [place] % (Auto) [place] # Seg Neutrophils % Seg Neuts % (Manual) Lymphocytes % (Manual) Monocytes % (Manual) Nucleated RBC % Seg Neutrophils # Seg Neutrophils # Man Lymphocytes # (Manual) Monocytes # (Manual) Eosinophils # (Manual) Basophils # (Manual) PT INR POC ABG pH ABG pH POC ABG pCO2 POC ABG pO2 ABG pO2 ABG Base Excess ABG Hemoglobin Sodium Potassium Chloride Carbon Dioxide BUN Creatinine Glucose POC Glucose 189 H 175 H 190 H Calcium Phosphorus Magnesium AST ALT Alkaline Phosphatase Troponin T C-Reactive Protein Total Protein Albumin Triglycerides HDL Cholesterol Miscellaneous Test Crossmatch 08/25/17 08/25/17 08/26/17 07:02 11:53 05:30 WBC 33.5 H RBC 2.47 L Hgb 7.3 L Hct 23.0 L MCV MCH RDW 21.3 H Plt Count Lymph % (Auto) [place] % (Auto) [place] # Seg Neutrophils % Seg Neuts % (Manual) 92.0 H Lymphocytes % (Manual) 1.0 L Monocytes % (Manual) Nucleated RBC % Seg Neutrophils # Seg Neutrophils # Man 30.8 H Lymphocytes # (Manual) 0.3 L Monocytes # (Manual) Eosinophils # (Manual) Basophils # (Manual) PT INR POC ABG pH ABG pH POC ABG pCO2 POC ABG pO2 ABG pO2 ABG Base Excess ABG Hemoglobin Sodium Potassium Chloride Carbon Dioxide BUN 32 H Creatinine 5.0 H D Glucose 117 H POC Glucose 191 H Calcium 8.0 L Phosphorus Magnesium AST ALT Alkaline Phosphatase Troponin T C-Reactive Protein Total Protein Albumin Triglycerides HDL Cholesterol Miscellaneous Test Crossmatch 08/26/17 08/26/17 08/26/17 05:30 06:44 13:26 WBC RBC Hgb Hct MCV MCH RDW Plt Count Lymph % (Auto) [place] % (Auto) [place] # Seg Neutrophils % Seg Neuts % (Manual) Lymphocytes % (Manual) Monocytes % (Manual) Nucleated RBC % Seg Neutrophils # Seg Neutrophils # Man Lymphocytes # (Manual) Monocytes # (Manual) Eosinophils # (Manual) Basophils # (Manual) PT INR POC ABG pH ABG pH POC ABG pCO2 POC ABG pO2 ABG pO2 ABG Base Excess ABG Hemoglobin Sodium Potassium 5.2 H Chloride Carbon Dioxide BUN 80 H Creatinine 3.4 H Glucose 193 H POC Glucose 232 H 207 H Calcium 8.3 L Phosphorus 6.80 H D Magnesium 2.60 H AST 135 H ALT Alkaline Phosphatase 211 H Troponin T C-Reactive Protein Total Protein 4.8 L Albumin 2.0 L Triglycerides HDL Cholesterol Miscellaneous Test Crossmatch 08/27/17 08/27/17 08/27/17 01:08 06:20 06:20 WBC 35.0 H RBC 2.75 L Hgb 8.4 L Hct 25.1 L MCV MCH RDW 21.8 H Plt Count Lymph % (Auto) [place] % (Auto) [place] # Seg Neutrophils % Seg Neuts % (Manual) Lymphocytes % (Manual) 4.5 L Monocytes % (Manual) Nucleated RBC % Seg Neutrophils # Seg Neutrophils # Man 31.9 H Lymphocytes # (Manual) Monocytes # (Manual) 1.2 H Eosinophils # (Manual) Basophils # (Manual) PT INR POC ABG pH ABG pH POC ABG pCO2 POC ABG pO2 ABG pO2 ABG Base Excess ABG Hemoglobin Sodium Potassium Chloride Carbon Dioxide BUN 61 H Creatinine 2.6 H Glucose 184 H POC Glucose 146 H Calcium Phosphorus 4.90 H D Magnesium AST ALT Alkaline Phosphatase Troponin T C-Reactive Protein Total Protein Albumin Triglycerides HDL Cholesterol Miscellaneous Test Crossmatch 08/27/17 08/27/17 08/27/17 07:01 09:17 12:52 WBC RBC Hgb Hct MCV MCH RDW Plt Count Lymph % (Auto) [place] % (Auto) [place] # Seg Neutrophils % Seg Neuts % (Manual) Lymphocytes % (Manual) Monocytes % (Manual) Nucleated RBC % Seg Neutrophils # Seg Neutrophils # Man Lymphocytes # (Manual) Monocytes # (Manual) Eosinophils # (Manual) Basophils # (Manual) PT INR POC ABG pH ABG pH POC ABG pCO2 POC ABG pO2 ABG pO2 ABG Base Excess ABG Hemoglobin Sodium Potassium Chloride Carbon Dioxide BUN Creatinine Glucose POC Glucose 165 H 198 H 218 H Calcium Phosphorus Magnesium AST ALT Alkaline Phosphatase Troponin T C-Reactive Protein Total Protein Albumin Triglycerides HDL Cholesterol Miscellaneous Test Crossmatch 08/27/17 08/28/17 08/28/17 17:27 02:13 06:46 WBC RBC Hgb Hct MCV MCH RDW Plt Count Lymph % (Auto) [place] % (Auto) [place] # Seg Neutrophils % Seg Neuts % (Manual) Lymphocytes % (Manual) Monocytes % (Manual) Nucleated RBC % Seg Neutrophils # Seg Neutrophils # Man Lymphocytes # (Manual) Monocytes # (Manual) Eosinophils # (Manual) Basophils # (Manual) PT INR POC ABG pH ABG pH POC ABG pCO2 POC ABG pO2 ABG pO2 ABG Base Excess ABG Hemoglobin Sodium Potassium Chloride Carbon Dioxide BUN Creatinine Glucose POC Glucose 151 H 155 H 230 H Calcium Phosphorus Magnesium AST ALT Alkaline Phosphatase Troponin T C-Reactive Protein Total Protein Albumin Triglycerides HDL Cholesterol Miscellaneous Test Crossmatch 08/28/17 08/28/17 08/28/17 06:53 06:53 08:19 WBC 31.1 H RBC 2.26 L Hgb 6.8 L Hct 20.9 L MCV MCH RDW 21.7 H Plt Count Lymph % (Auto) [place] % (Auto) [place] # Seg Neutrophils % Seg Neuts % (Manual) 83.0 H Lymphocytes % (Manual) 4.0 L Monocytes % (Manual) Nucleated RBC % Seg Neutrophils # Seg Neutrophils # Man 25.8 H Lymphocytes # (Manual) Monocytes # (Manual) Eosinophils # (Manual) Basophils # (Manual) PT INR POC ABG pH ABG pH POC ABG pCO2 POC ABG pO2 ABG pO2 ABG Base Excess ABG Hemoglobin Sodium Potassium Chloride Carbon Dioxide BUN 81 H Creatinine 3.4 H Glucose 218 H POC Glucose 239 H Calcium Phosphorus 4.90 H Magnesium AST ALT Alkaline Phosphatase Troponin T C-Reactive Protein Total Protein Albumin Triglycerides HDL Cholesterol Miscellaneous Test Crossmatch 08/28/17 08/28/17 08/28/17 11:56 13:05 13:29 WBC RBC Hgb Hct MCV MCH RDW Plt Count Lymph % (Auto) [place] % (Auto) [place] # Seg Neutrophils % Seg Neuts % (Manual) Lymphocytes % (Manual) Monocytes % (Manual) Nucleated RBC % Seg Neutrophils # Seg Neutrophils # Man Lymphocytes # (Manual) Monocytes # (Manual) Eosinophils # (Manual) Basophils # (Manual) PT 16.7 H INR 1.29 H POC ABG pH ABG pH POC ABG pCO2 POC ABG pO2 338 H ABG pO2 ABG Base Excess ABG Hemoglobin Sodium Potassium Chloride Carbon Dioxide BUN Creatinine Glucose POC Glucose Calcium Phosphorus Magnesium AST ALT Alkaline Phosphatase Troponin T C-Reactive Protein Total Protein Albumin Triglycerides HDL Cholesterol Miscellaneous Test Crossmatch See Detail 08/28/17 08/28/17 08/29/17 16:22 19:20 04:24 WBC RBC Hgb Hct MCV MCH RDW Plt Count Lymph % (Auto) [place] % (Auto) [place] # Seg Neutrophils % Seg Neuts % (Manual) Lymphocytes % (Manual) Monocytes % (Manual) Nucleated RBC % Seg Neutrophils # Seg Neutrophils # Man Lymphocytes # (Manual) Monocytes # (Manual) Eosinophils # (Manual) Basophils # (Manual) PT INR POC ABG pH 7.469 H ABG pH POC ABG pCO2 POC ABG pO2 240 H ABG pO2 ABG Base Excess ABG Hemoglobin Sodium Potassium Chloride Carbon Dioxide BUN Creatinine Glucose POC Glucose 209 H 195 H Calcium Phosphorus Magnesium AST ALT Alkaline Phosphatase Troponin T C-Reactive Protein Total Protein Albumin Triglycerides HDL Cholesterol Miscellaneous Test Crossmatch 08/29/17 08/29/17 08/29/17 04:30 04:30 12:07 WBC 44.9 H* RBC Hgb Hct MCV MCH RDW 23.1 H Plt Count Lymph % (Auto) [place] % (Auto) [place] # Seg Neutrophils % Seg Neuts % (Manual) 38.0 L Lymphocytes % (Manual) 10.0 L Monocytes % (Manual) 10.0 H Nucleated RBC % 6.0 H Seg Neutrophils # Seg Neutrophils # Man 17.1 H Lymphocytes # (Manual) Monocytes # (Manual) 4.5 H Eosinophils # (Manual) Basophils # (Manual) PT INR POC ABG pH ABG pH POC ABG pCO2 POC ABG pO2 ABG pO2 ABG Base Excess ABG Hemoglobin Sodium Potassium Chloride Carbon Dioxide BUN 61 H Creatinine 2.4 H Glucose 226 H POC Glucose 200 H Calcium Phosphorus Magnesium AST ALT Alkaline Phosphatase Troponin T C-Reactive Protein Total Protein Albumin Triglycerides HDL Cholesterol Miscellaneous Test Crossmatch 08/29/17 08/29/17 08/29/17 12:30 12:30 17:23 WBC RBC Hgb Hct MCV MCH RDW Plt Count Lymph % (Auto) [place] % (Auto) [place] # Seg Neutrophils % Seg Neuts % (Manual) Lymphocytes % (Manual) Monocytes % (Manual) Nucleated RBC % Seg Neutrophils # Seg Neutrophils # Man Lymphocytes # (Manual) Monocytes # (Manual) Eosinophils # (Manual) Basophils # (Manual) PT INR POC ABG pH ABG pH POC ABG pCO2 POC ABG pO2 ABG pO2 ABG Base Excess ABG Hemoglobin Sodium Potassium Chloride Carbon Dioxide BUN Creatinine Glucose POC Glucose 270 H Calcium Phosphorus Magnesium AST ALT Alkaline Phosphatase Troponin T C-Reactive Protein 19.10 H Total Protein Albumin Triglycerides HDL Cholesterol Miscellaneous Test Flexitest 1 H Crossmatch 08/30/17 08/30/17 08/30/17 00:10 01:30 03:31 WBC RBC Hgb Hct MCV MCH RDW Plt Count Lymph % (Auto) [place] % (Auto) [place] # Seg Neutrophils % Seg Neuts % (Manual) Lymphocytes % (Manual) Monocytes % (Manual) Nucleated RBC % Seg Neutrophils # Seg Neutrophils # Man Lymphocytes # (Manual) Monocytes # (Manual) Eosinophils # (Manual) Basophils # (Manual) PT INR POC ABG pH 7.168 L 7.335 L ABG pH POC ABG pCO2 72.8 H POC ABG pO2 257 H 117 H ABG pO2 ABG Base Excess ABG Hemoglobin Sodium Potassium Chloride Carbon Dioxide BUN Creatinine Glucose POC Glucose 245 H Calcium Phosphorus Magnesium AST ALT Alkaline Phosphatase Troponin T C-Reactive Protein Total Protein Albumin Triglycerides HDL Cholesterol Miscellaneous Test Crossmatch 08/30/17 08/30/17 08/30/17 05:20 05:20 05:20 WBC 40.9 H* RBC 3.64 L Hgb Hct MCV MCH RDW 24.3 H Plt Count Lymph % (Auto) [place] % (Auto) [place] # Seg Neutrophils % Seg Neuts % (Manual) 80.0 H Lymphocytes % (Manual) 3.0 L Monocytes % (Manual) Nucleated RBC % 1.0 H Seg Neutrophils # Seg Neutrophils # Man 32.7 H Lymphocytes # (Manual) Monocytes # (Manual) Eosinophils # (Manual) Basophils # (Manual) PT INR POC ABG pH ABG pH POC ABG pCO2 POC ABG pO2 ABG pO2 ABG Base Excess ABG Hemoglobin Sodium Potassium Chloride Carbon Dioxide BUN 83 H Creatinine 2.9 H Glucose 334 H POC Glucose 309 H Calcium Phosphorus Magnesium AST ALT Alkaline Phosphatase Troponin T C-Reactive Protein Total Protein Albumin Triglycerides HDL Cholesterol Miscellaneous Test Crossmatch 08/30/17 08/30/17 08/31/17 12:18 17:36 00:17 WBC RBC Hgb Hct MCV MCH RDW Plt Count Lymph % (Auto) [place] % (Auto) [place] # Seg Neutrophils % Seg Neuts % (Manual) Lymphocytes % (Manual) Monocytes % (Manual) Nucleated RBC % Seg Neutrophils # Seg Neutrophils # Man Lymphocytes # (Manual) Monocytes # (Manual) Eosinophils # (Manual) Basophils # (Manual) PT INR POC ABG pH ABG pH POC ABG pCO2 POC ABG pO2 ABG pO2 ABG Base Excess ABG Hemoglobin Sodium Potassium Chloride Carbon Dioxide BUN Creatinine Glucose POC Glucose 273 H 293 H 360 H Calcium Phosphorus Magnesium AST ALT Alkaline Phosphatase Troponin T C-Reactive Protein Total Protein Albumin Triglycerides HDL Cholesterol Miscellaneous Test Crossmatch 08/31/17 08/31/17 08/31/17 05:30 05:30 05:32 WBC 29.9 H RBC 2.89 L Hgb 8.2 L Hct 24.7 L D MCV MCH RDW 24.4 H Plt Count Lymph % (Auto) [place] % (Auto) [place] # Seg Neutrophils % Seg Neuts % (Manual) Lymphocytes % (Manual) 2.0 L Monocytes % (Manual) Nucleated RBC % 2.0 H Seg Neutrophils # Seg Neutrophils # Man 18.5 H Lymphocytes # (Manual) 0.6 L Monocytes # (Manual) 0.9 H Eosinophils # (Manual) Basophils # (Manual) PT INR POC ABG pH ABG pH POC ABG pCO2 POC ABG pO2 ABG pO2 ABG Base Excess ABG Hemoglobin Sodium Potassium Chloride Carbon Dioxide BUN 62 H Creatinine 2.2 H Glucose 245 H POC Glucose 257 H Calcium Phosphorus 2.10 L D Magnesium 1.60 L AST ALT Alkaline Phosphatase Troponin T C-Reactive Protein Total Protein Albumin Triglycerides HDL Cholesterol Miscellaneous Test Crossmatch 08/31/17 08/31/17 08/31/17 11:56 12:05 18:14 WBC 32.5 H RBC 3.19 L Hgb 8.8 L Hct 27.9 L MCV MCH RDW 24.9 H Plt Count Lymph % (Auto) [place] % (Auto) [place] # Seg Neutrophils % Seg Neuts % (Manual) Lymphocytes % (Manual) 1.0 L Monocytes % (Manual) 12.0 H Nucleated RBC % 1.0 H Seg Neutrophils # Seg Neutrophils # Man 13.3 H Lymphocytes # (Manual) 0.3 L Monocytes # (Manual) 3.9 H Eosinophils # (Manual) Basophils # (Manual) PT INR POC ABG pH ABG pH POC ABG pCO2 POC ABG pO2 ABG pO2 ABG Base Excess ABG Hemoglobin Sodium Potassium Chloride Carbon Dioxide BUN Creatinine Glucose POC Glucose 245 H Calcium Phosphorus Magnesium AST ALT Alkaline Phosphatase Troponin T C-Reactive Protein Total Protein Albumin Triglycerides HDL Cholesterol Miscellaneous Test Crossmatch See Detail 08/31/17 08/31/17 08/31/17 18:14 18:15 23:53 WBC RBC Hgb Hct MCV MCH RDW Plt Count Lymph % (Auto) [place] % (Auto) [place] # Seg Neutrophils % Seg Neuts % (Manual) Lymphocytes % (Manual) Monocytes % (Manual) Nucleated RBC % Seg Neutrophils # Seg Neutrophils # Man Lymphocytes # (Manual) Monocytes # (Manual) Eosinophils # (Manual) Basophils # (Manual) PT 15.1 H INR POC ABG pH ABG pH POC ABG pCO2 POC ABG pO2 ABG pO2 ABG Base Excess ABG Hemoglobin Sodium 136 L Potassium Chloride Carbon Dioxide 21 L BUN 69 H Creatinine 2.3 H Glucose 227 H POC Glucose 301 H Calcium Phosphorus 2.40 L Magnesium 1.50 L AST 143 H ALT 114 H Alkaline Phosphatase 267 H Troponin T C-Reactive Protein Total Protein 4.1 L Albumin 1.8 L Triglycerides HDL Cholesterol Miscellaneous Test Crossmatch 09/01/17 09/01/17 09/01/17 05:00 05:00 05:20 WBC 33.9 H RBC 2.85 L Hgb 7.8 L Hct 24.8 L MCV MCH 27 L RDW 23.9 H Plt Count Lymph % (Auto) [place] % (Auto) [place] # Seg Neutrophils % Seg Neuts % (Manual) Lymphocytes % (Manual) 5.0 L Monocytes % (Manual) Nucleated RBC % Seg Neutrophils # Seg Neutrophils # Man 23.1 H Lymphocytes # (Manual) Monocytes # (Manual) Eosinophils # (Manual) Basophils # (Manual) PT INR POC ABG pH ABG pH 7.348 L POC ABG pCO2 POC ABG pO2 ABG pO2 70.2 L ABG Base Excess ABG Hemoglobin 7.5 L Sodium Potassium Chloride Carbon Dioxide BUN 51 H Creatinine 1.8 H Glucose 195 H POC Glucose Calcium Phosphorus 1.70 L D Magnesium 1.60 L AST 80 H ALT 82 H Alkaline Phosphatase 243 H Troponin T C-Reactive Protein Total Protein 4.2 L Albumin 1.7 L Triglycerides HDL Cholesterol Miscellaneous Test Crossmatch 09/01/17 09/01/17 09/01/17 05:47 11:37 17:39 WBC RBC Hgb Hct MCV MCH RDW Plt Count Lymph % (Auto) [place] % (Auto) [place] # Seg Neutrophils % Seg Neuts % (Manual) Lymphocytes % (Manual) Monocytes % (Manual) Nucleated RBC % Seg Neutrophils # Seg Neutrophils # Man Lymphocytes # (Manual) Monocytes # (Manual) Eosinophils # (Manual) Basophils # (Manual) PT INR POC ABG pH ABG pH POC ABG pCO2 POC ABG pO2 ABG pO2 ABG Base Excess ABG Hemoglobin Sodium Potassium Chloride Carbon Dioxide BUN Creatinine Glucose POC Glucose 230 H 254 H 297 H Calcium Phosphorus Magnesium AST ALT Alkaline Phosphatase Troponin T C-Reactive Protein Total Protein Albumin Triglycerides HDL Cholesterol Miscellaneous Test Crossmatch 09/01/17 09/02/17 09/02/17 23:14 04:55 05:31 WBC RBC Hgb Hct MCV MCH RDW Plt Count Lymph % (Auto) [place] % (Auto) [place] # Seg Neutrophils % Seg Neuts % (Manual) Lymphocytes % (Manual) Monocytes % (Manual) Nucleated RBC % Seg Neutrophils # Seg Neutrophils # Man Lymphocytes # (Manual) Monocytes # (Manual) Eosinophils # (Manual) Basophils # (Manual) PT INR POC ABG pH ABG pH POC ABG pCO2 POC ABG pO2 ABG pO2 124.8 H ABG Base Excess -2.9 L ABG Hemoglobin 5.8 L Sodium Potassium Chloride Carbon Dioxide BUN Creatinine Glucose POC Glucose 291 H 245 H Calcium Phosphorus Magnesium AST ALT Alkaline Phosphatase Troponin T C-Reactive Protein Total Protein Albumin Triglycerides HDL Cholesterol Miscellaneous Test Crossmatch 09/02/17 09/02/17 09/02/17 06:10 11:58 15:37 WBC RBC Hgb Hct MCV MCH RDW Plt Count Lymph % (Auto) [place] % (Auto) [place] # Seg Neutrophils % Seg Neuts % (Manual) Lymphocytes % (Manual) Monocytes % (Manual) Nucleated RBC % Seg Neutrophils # Seg Neutrophils # Man Lymphocytes # (Manual) Monocytes # (Manual) Eosinophils # (Manual) Basophils # (Manual) PT INR POC ABG pH ABG pH POC ABG pCO2 POC ABG pO2 ABG pO2 ABG Base Excess ABG Hemoglobin Sodium Potassium Chloride Carbon Dioxide BUN 68 H Creatinine 2.2 H Glucose 369 H POC Glucose 333 H 314 H Calcium 8.2 L Phosphorus Magnesium AST ALT Alkaline Phosphatase Troponin T C-Reactive Protein Total Protein Albumin Triglycerides HDL Cholesterol Miscellaneous Test Crossmatch 09/02/17 09/03/17 09/03/17 23:50 04:00 05:00 WBC 41.5 H* RBC 2.46 L Hgb 6.9 L Hct 21.3 L MCV MCH RDW 24.9 H Plt Count Lymph % (Auto) [place] % (Auto) [place] # Seg Neutrophils % Seg Neuts % (Manual) Lymphocytes % (Manual) 3.0 L Monocytes % (Manual) 9.5 H Nucleated RBC % 1.5 H Seg Neutrophils # Seg Neutrophils # Man 28.8 H Lymphocytes # (Manual) Monocytes # (Manual) 3.9 H Eosinophils # (Manual) Basophils # (Manual) PT INR POC ABG pH ABG pH POC ABG pCO2 POC ABG pO2 ABG pO2 ABG Base Excess ABG Hemoglobin Sodium Potassium Chloride Carbon Dioxide BUN 59 H Creatinine 1.9 H Glucose 231 H POC Glucose 240 H Calcium 8.0 L Phosphorus Magnesium AST ALT Alkaline Phosphatase 265 H Troponin T C-Reactive Protein Total Protein 4.4 L Albumin 1.7 L Triglycerides 180 H HDL Cholesterol Miscellaneous Test Crossmatch 09/03/17 09/03/17 09/03/17 05:32 11:52 16:55 WBC RBC Hgb Hct MCV MCH RDW Plt Count Lymph % (Auto) [place] % (Auto) [place] # Seg Neutrophils % Seg Neuts % (Manual) Lymphocytes % (Manual) Monocytes % (Manual) Nucleated RBC % Seg Neutrophils # Seg Neutrophils # Man Lymphocytes # (Manual) Monocytes # (Manual) Eosinophils # (Manual) Basophils # (Manual) PT INR POC ABG pH ABG pH POC ABG pCO2 POC ABG pO2 ABG pO2 ABG Base Excess ABG Hemoglobin Sodium Potassium Chloride Carbon Dioxide BUN Creatinine Glucose POC Glucose 188 H 285 H Calcium Phosphorus Magnesium AST ALT Alkaline Phosphatase Troponin T C-Reactive Protein Total Protein Albumin Triglycerides HDL Cholesterol Miscellaneous Test Crossmatch See Detail 09/03/17 09/03/17 09/03/17 17:44 23:56 Unknown WBC RBC Hgb Hct MCV MCH RDW Plt Count Lymph % (Auto) [place] % (Auto) [place] # Seg Neutrophils % Seg Neuts % (Manual) Lymphocytes % (Manual) Monocytes % (Manual) Nucleated RBC % Seg Neutrophils # Seg Neutrophils # Man Lymphocytes # (Manual) Monocytes # (Manual) Eosinophils # (Manual) Basophils # (Manual) PT INR POC ABG pH ABG pH POC ABG pCO2 POC ABG pO2 ABG pO2 133.4 H ABG Base Excess ABG Hemoglobin 5.8 L Sodium Potassium Chloride Carbon Dioxide BUN Creatinine Glucose POC Glucose 217 H 193 H Calcium Phosphorus Magnesium AST ALT Alkaline Phosphatase Troponin T C-Reactive Protein Total Protein Albumin Triglycerides HDL Cholesterol Miscellaneous Test Crossmatch 09/04/17 09/04/17 09/04/17 03:47 04:32 04:32 WBC 44.7 H* RBC 3.12 L Hgb 8.7 L Hct 26.7 L MCV MCH RDW 23.5 H Plt Count Lymph % (Auto) [place] % (Auto) [place] # Seg Neutrophils % Seg Neuts % (Manual) Lymphocytes % (Manual) 4.0 L Monocytes % (Manual) Nucleated RBC % 2.0 H Seg Neutrophils # Seg Neutrophils # Man 30.8 H Lymphocytes # (Manual) Monocytes # (Manual) 2.2 H Eosinophils # (Manual) Basophils # (Manual) PT INR POC ABG pH ABG pH POC ABG pCO2 POC ABG pO2 ABG pO2 135.0 H ABG Base Excess -2.5 L ABG Hemoglobin 7.9 L Sodium 136 L Potassium 5.2 H D Chloride 94.2 L Carbon Dioxide BUN 71 H Creatinine 2.3 H Glucose 235 H POC Glucose Calcium 8.3 L Phosphorus Magnesium AST ALT Alkaline Phosphatase Troponin T C-Reactive Protein Total Protein Albumin Triglycerides HDL Cholesterol Miscellaneous Test Crossmatch 09/04/17 09/04/17 09/04/17 05:48 12:38 17:30 WBC RBC Hgb Hct MCV MCH RDW Plt Count Lymph % (Auto) [place] % (Auto) [place] # Seg Neutrophils % Seg Neuts % (Manual) Lymphocytes % (Manual) Monocytes % (Manual) Nucleated RBC % Seg Neutrophils # Seg Neutrophils # Man Lymphocytes # (Manual) Monocytes # (Manual) Eosinophils # (Manual) Basophils # (Manual) PT INR POC ABG pH ABG pH POC ABG pCO2 POC ABG pO2 ABG pO2 ABG Base Excess ABG Hemoglobin Sodium Potassium Chloride Carbon Dioxide BUN Creatinine Glucose POC Glucose 329 H 444 H 331 H Calcium Phosphorus Magnesium AST ALT Alkaline Phosphatase Troponin T C-Reactive Protein Total Protein Albumin Triglycerides HDL Cholesterol Miscellaneous Test Crossmatch 09/05/17 09/05/17 09/05/17 00:15 03:55 03:55 WBC 35.3 H RBC 2.87 L Hgb 8.1 L Hct 24.6 L MCV MCH RDW 23.3 H Plt Count Lymph % (Auto) [place] % (Auto) [place] # Seg Neutrophils % Seg Neuts % (Manual) 89.5 H Lymphocytes % (Manual) 3.0 L Monocytes % (Manual) Nucleated RBC % 2.5 H Seg Neutrophils # Seg Neutrophils # Man 31.6 H Lymphocytes # (Manual) 1.1 L Monocytes # (Manual) Eosinophils # (Manual) Basophils # (Manual) PT INR POC ABG pH ABG pH POC ABG pCO2 POC ABG pO2 ABG pO2 ABG Base Excess ABG Hemoglobin Sodium 136 L Potassium Chloride 94.7 L Carbon Dioxide BUN 55 H Creatinine 1.8 H Glucose 193 H POC Glucose 362 H Calcium 8.1 L Phosphorus Magnesium AST ALT Alkaline Phosphatase Troponin T C-Reactive Protein Total Protein Albumin Triglycerides HDL Cholesterol Miscellaneous Test Crossmatch
[2017-09-05] MEDS ORDERED: D50W (25GM) Syringe IV PRN (11:34)
--- NOTE | 2017-09-05 11:47 | Progress Note ---
Assessment and Plan Assessment: 1) Sepsis with septic shock: still on levophed, leukocytosis better today; new source ? surgical wound infection ? VAP (doubt -CXR no consolidation). Initial source bowel obstruction / suspect ?gastric perforation. -CRP= 34 -->30 -->19-->0.1 -procalcitonin=1.3 -->7.6 2) Bowel obstruction / suspect ?gastric perforation ? peritonitis -S/P Exlap, G-tube placement, EGD, abdominal washout and removal of PD -OR findings - bowel obstruction due to entanglement of PD cath, abscess cavity in LUQ and ? suspect perforation of unclear location 3) CA-UTI: chronic ivan exchanged every 4 weeks and ureteral stents in place which are exchanged every 6 months ? urine cultures still pending should r/o MDR bacteria 4) Paraplegia 5) ESRD on PD - no evidence of peritonitis, wbc count 2. SCREENER PERFUMER and Diphteroids on peritoneal fluid likely contaminants. 6) Recent pancreatitis 7) Penicillin allergy-has taken keflex w/o problems 8) Presumed Surgical wound infection / dehiscence ? 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 Ramya Lang MD Infectious Diseases Specialist [facility] ([facility]) M [phone] O [phone] Subjective Date of service: 09/05/17 Principal diagnosis: septic shock Interval history: Pt remains intubated on the vent on levophed at 4, on TPN, fentanyl, no fever. Microbiology: Blood cultures: 08/08 neg 08/12 neg 08/16 neg 08/20 neg 08/29 neg Urine cultures: 08/08 10-100K skin grace Respiratory cultures: 08/30 tracheal asp MRSA Wound cultures: 08/26 Staph aureus and Kristine 08/28 MRSA, E faecalis, Kristine albicans Stool cultures: Other: 08/08 peritoneal fluid + SCREENER PERFUMER/Diphteroids Current Antimicrobials: zyvox 09/03 fluconazole 09/03 Previous Antimicrobials: 08/10 levaquin 08/16 vancomycin 08/13 meropenem 08/16 fluconazole Micafungin 08/29 meropenem 08/29 Objective - Exam Narrative Exam: General appearance: sedated on vent Eyes: anicteric sclerae, moist conjunctivae; no lid-lag; PERRLA HENT: Atraumatic; limited OP ETT, NGT Neck: Trachea midline; supple, no thyromegaly or lymphadenopathy Lungs: coarse BS moreno CV: RRR, no murmurs Abdomen: soft, midline surgical wound with surtures. Gtube. drain Extremities: + peripheral edema + leg ulcer Skin: Normal temperature, turgor and texture; no rash, ulcers or subcutaneous nodules Psych: sedated. Neuro: sedated Lines: / Right IJ Nair 08/16 - Constitutional Vitals: Vital Signs Temp Pulse Resp BP Pulse Ox 98.3 F 99 H 20 96/75 100 09/05/17 07:37 09/05/17 08:30 09/05/17 08:30 09/05/17 08:17 09/05/17 08:17 Temperature -Last 24 Hours Temperature 98.3 F Temperature 99.0 F Temperature 98.8 F Temperature 98.8 F Temperature 98.5 F Temperature 98.5 F Temperature 98.8 F - Labs CBC & Chem 7: 09/05/17 03:55 09/05/17 03:55 Labs: Abnormal lab results 09/04/17 09/04/17 09/05/17 Range/Units 12:38 17:30 00:15 WBC (4.5-11.0) K/mm3 RBC (3.65-5.03) M/mm3 Hgb (10.1-14.3) gm/dl Hct (30.3-42.9) % RDW (13.2-15.2) % Seg Neuts % (Manual) (40.0-70.0) % Lymphocytes % (Manual) (13.4-35.0) % Nucleated RBC % (0.0-0.9) % Seg Neutrophils # Man (1.8-7.7) K/mm3 Lymphocytes # (Manual) (1.2-5.4) K/mm3 Sodium (137-145) mmol/L Chloride (98-107) mmol/L BUN (7-17) mg/dL Creatinine (0.7-1.2) mg/dL Glucose (65-100) mg/dL POC Glucose 444 H 331 H 362 H (70-105) Calcium (8.4-10.2) mg/dL 09/05/17 09/05/17 Range/Units 03:55 03:55 WBC 35.3 H (4.5-11.0) K/mm3 RBC 2.87 L (3.65-5.03) M/mm3 Hgb 8.1 L (10.1-14.3) gm/dl Hct 24.6 L (30.3-42.9) % RDW 23.3 H (13.2-15.2) % Seg Neuts % (Manual) 89.5 H (40.0-70.0) % Lymphocytes % (Manual) 3.0 L (13.4-35.0) % Nucleated RBC % 2.5 H (0.0-0.9) % Seg Neutrophils # Man 31.6 H (1.8-7.7) K/mm3 Lymphocytes # (Manual) 1.1 L (1.2-5.4) K/mm3 Sodium 136 L (137-145) mmol/L Chloride 94.7 L (98-107) mmol/L BUN 55 H (7-17) mg/dL Creatinine 1.8 H (0.7-1.2) mg/dL Glucose 193 H (65-100) mg/dL POC Glucose (70-105) Calcium 8.1 L (8.4-10.2) mg/dL
[2017-09-05] MEDS ORDERED: NovoLIN R 100 UNITS in NACL 0.9% 99 ML IV SCH (12:00)
[2017-09-05] MEDS: DIFLUCAN 200 MG/100 ML BAG IV SCH (12:05)
--- NOTE | 2017-09-05 14:50 | Progress Note ---
Assessment and Plan s/p two exploratory laparotomies, one for SBO with gastric perforation, and the most recent one for abdominal wound dehiscence. clinically septic of unclear etiology, remains afebrile, leukycytosis trending down, but continues to require pressors although decreased from yesterday. Midline wound was probed, superior portion of wound noted to weak compared to the rest of the closure. This is where she dehiscised before. Her tissues are very weak due to poor integrity, low albumin, and healing is expected to be slower with steroid treatment. Agree with the present tapering of the steroids. continue with abx. Spoke with Dr. Carvajal and she ordered another Ct scan to evaluate abdomen to look for cause of sepsis. continue with daily dressing changes. is scheduled for tracheostomy in the near future. renal failure continue dialysis per renal recs - Patient Problems (1) SBO (small bowel obstruction) Current Visit: Yes Status: Acute Subjective Date of service: 09/05/17 (no significant changes in the last 24 hours) Objective Vital Signs - 12hr 09/05/17 09/05/17 09/05/17 02:45 03:01 03:15 Temperature Pulse Rate 81 82 82 Pulse Rate [ Throughout] Respiratory 19 20 20 Rate Respiratory Rate [ Throughout] Blood Pressure 131/56 138/35 148/43 O2 Sat by Pulse 100 100 100 Oximetry 09/05/17 09/05/17 09/05/17 03:30 03:45 03:53 Temperature Pulse Rate 82 94 H 86 Pulse Rate [ Throughout] Respiratory 10 L 25 H Rate Respiratory Rate [ Throughout] Blood Pressure 138/52 138/52 O2 Sat by Pulse 100 100 100 Oximetry 09/05/17 09/05/17 09/05/17 04:00 04:01 04:15 Temperature 99.0 F Pulse Rate 93 H 86 93 H Pulse Rate [ Throughout] Respiratory 18 19 Rate Respiratory Rate [ Throughout] Blood Pressure 83/45 83/45 O2 Sat by Pulse 100 100 99 Oximetry 09/05/17 09/05/17 09/05/17 04:31 04:45 05:01 Temperature Pulse Rate 82 79 81 Pulse Rate [ Throughout] Respiratory 20 20 20 Rate Respiratory Rate [ Throughout] Blood Pressure 83/45 85/39 111/53 O2 Sat by Pulse 100 100 100 Oximetry 09/05/17 09/05/17 09/05/17 05:15 05:30 05:45 Temperature Pulse Rate 81 89 80 Pulse Rate [ Throughout] Respiratory 19 13 21 Rate Respiratory Rate [ Throughout] Blood Pressure 117/56 85/64 87/54 O2 Sat by Pulse 100 100 100 Oximetry 09/05/17 09/05/17 09/05/17 06:00 06:15 06:30 Temperature Pulse Rate 80 75 81 Pulse Rate [ Throughout] Respiratory 15 20 20 Rate Respiratory Rate [ Throughout] Blood Pressure 75/45 150/63 127/60 O2 Sat by Pulse 100 100 100 Oximetry 09/05/17 09/05/17 09/05/17 06:45 07:00 07:15 Temperature Pulse Rate 78 78 79 Pulse Rate [ Throughout] Respiratory 20 19 20 Rate Respiratory Rate [ Throughout] Blood Pressure 132/55 140/56 133/63 O2 Sat by Pulse 100 100 100 Oximetry 09/05/17 09/05/17 09/05/17 07:30 07:37 07:45 Temperature 98.3 F Pulse Rate 83 83 Pulse Rate [ Throughout] Respiratory 18 15 Rate Respiratory Rate [ Throughout] Blood Pressure 120/63 127/63 O2 Sat by Pulse 100 100 Oximetry 09/05/17 09/05/17 09/05/17 08:00 08:01 08:15 Temperature Pulse Rate 86 90 Pulse Rate [ Throughout] Respiratory 15 17 Rate Respiratory Rate [ Throughout] Blood Pressure 96/75 105/61 O2 Sat by Pulse 100 100 100 Oximetry 09/05/17 09/05/17 09/05/17 08:16 08:17 08:30 Temperature Pulse Rate 97 H 82 Pulse Rate [ 97 H 99 H Throughout] Respiratory 15 Rate Respiratory 20 20 Rate [ Throughout] Blood Pressure 96/75 109/55 O2 Sat by Pulse 100 100 Oximetry 09/05/17 09/05/17 09/05/17 08:45 09:00 09:15 Temperature Pulse Rate 86 85 94 H Pulse Rate [ Throughout] Respiratory 16 10 L 13 Rate Respiratory Rate [ Throughout] Blood Pressure 118/52 96/54 96/54 O2 Sat by Pulse 100 100 100 Oximetry 09/05/17 09/05/17 09/05/17 09:30 09:45 10:00 Temperature Pulse Rate 88 89 87 Pulse Rate [ Throughout] Respiratory 16 12 13 Rate Respiratory Rate [ Throughout] Blood Pressure 121/60 122/49 119/54 O2 Sat by Pulse 100 100 100 Oximetry 09/05/17 09/05/17 09/05/17 10:15 10:30 10:45 Temperature Pulse Rate 82 85 87 Pulse Rate [ Throughout] Respiratory 20 20 20 Rate Respiratory Rate [ Throughout] Blood Pressure 111/57 119/53 131/57 O2 Sat by Pulse 100 100 100 Oximetry 09/05/17 09/05/17 09/05/17 11:00 11:15 11:30 Temperature Pulse Rate 85 84 86 Pulse Rate [ Throughout] Respiratory 20 21 20 Rate Respiratory Rate [ Throughout] Blood Pressure 120/56 127/52 132/55 O2 Sat by Pulse 100 100 100 Oximetry 09/05/17 09/05/17 09/05/17 11:45 12:00 12:15 Temperature 98.0 F Pulse Rate 91 H 88 88 Pulse Rate [ Throughout] Respiratory 18 20 20 Rate Respiratory Rate [ Throughout] Blood Pressure 128/54 130/55 132/58 O2 Sat by Pulse 100 100 100 Oximetry 09/05/17 09/05/17 09/05/17 12:30 12:45 13:00 Temperature Pulse Rate 88 87 91 H Pulse Rate [ Throughout] Respiratory 20 20 20 Rate Respiratory Rate [ Throughout] Blood Pressure 115/52 110/53 121/46 O2 Sat by Pulse 100 100 100 Oximetry 09/05/17 09/05/17 09/05/17 13:15 13:30 13:45 Temperature Pulse Rate 90 87 84 Pulse Rate [ Throughout] Respiratory 20 20 19 Rate Respiratory Rate [ Throughout] Blood Pressure 123/50 124/52 142/60 O2 Sat by Pulse 100 100 100 Oximetry 09/05/17 09/05/17 09/05/17 14:00 14:15 14:31 Temperature Pulse Rate 87 85 Pulse Rate [ 86 Throughout] Respiratory 20 20 Rate Respiratory 20 Rate [ Throughout] Blood Pressure 122/53 117/51 O2 Sat by Pulse 100 100 Oximetry - General physical appearance chronically ill, obese - Respiratory normal expansion, normal respiratory effort, other (intubated on vent) - Abdomen soft, other (incision dressing changed, serosanguinous drainage, no odor, MERVIN drain dark serous, G-tube in place draining bile) - Additional Exam levophed down to 4 from 8 - Labs 09/05/17 03:55 09/05/17 03:55 Diabetes panel 09/05/17 Range/Units 03:55 Sodium 136 L (137-145) mmol/L Potassium 3.7 D (3.6-5.0) mmol/L Chloride 94.7 L (98-107) mmol/L Carbon Dioxide 25 (22-30) mmol/L BUN 55 H (7-17) mg/dL Creatinine 1.8 H (0.7-1.2) mg/dL Glucose 193 H (65-100) mg/dL Calcium 8.1 L (8.4-10.2) mg/dL Calcium panel 09/05/17 Range/Units 03:55 Calcium 8.1 L (8.4-10.2) mg/dL Phosphorus 3.70 (2.5-4.5) mg/dL Pituitary panel 09/05/17 Range/Units 03:55 Sodium 136 L (137-145) mmol/L Potassium 3.7 D (3.6-5.0) mmol/L Chloride 94.7 L (98-107) mmol/L Carbon Dioxide 25 (22-30) mmol/L BUN 55 H (7-17) mg/dL Creatinine 1.8 H (0.7-1.2) mg/dL Glucose 193 H (65-100) mg/dL Calcium 8.1 L (8.4-10.2) mg/dL Adrenal panel 09/05/17 Range/Units 03:55 Sodium 136 L (137-145) mmol/L Potassium 3.7 D (3.6-5.0) mmol/L Chloride 94.7 L (98-107) mmol/L Carbon Dioxide 25 (22-30) mmol/L BUN 55 H (7-17) mg/dL Creatinine 1.8 H (0.7-1.2) mg/dL Glucose 193 H (65-100) mg/dL Calcium 8.1 L (8.4-10.2) mg/dL
[2017-09-05] MEDS: HEPARIN IV PRN (18:06)
[2017-09-05] MEDS ORDERED: TPN ADULT 1,800 ML IV SCH (20:00)
--- NOTE | 2017-09-05 21:09 | Progress Note ---
Assessment and Plan - Patient Problems (1) Leukocytosis Current Visit: Yes Status: Acute Qualifiers: Leukocytosis type: L Plan to address problem: See notes above. make sure that PD access is clean also. see notes. Probably infection from the infected PD catheter. improving. back up again. up/down continue to monitor. (2) Anemia Current Visit: Yes Status: Acute Qualifiers: Anemia type: A Iron deficiency anemia type: I Vitamin B12 deficiency anemia type: V Folate deficiency anemia type: F Bone marrow failure anemia type: B Hemolytic anemia type: H Other causes of anemia: O Chronic kidney disease stage: C Plan to address problem: see notes , monitor labs,. see notes above. continue to monitor labs with you. blood transfusion. S/P replacement transfusion. fair. Subjective Date of service: 09/05/17 Principal diagnosis: Interval history: Patient seen today/examined, labs reviewed, case d/w she, and family.complaints of abdominal pain. Patient resting in bed in the ICU, post vascular procedure. labs reviewed, Reactive thrombocytosis, anemia of CD, leukocytosis from infection vs inflamatory process. Patient seen/examined, in bed in the ICU, on the vent post surgery.Labs reviewed , notes reviewed. will continue to monitor labs/patient with you. Replacement transfusion, if /when indicated. patient seen/examined, SBP75, on pressors., lethargic, on the vent, labs reviewed, wbc 39,000 Patient seen/examined, case reviewed, d/w her sister at the bed side. Patient seen/examined, labs reviewed, notes reviewed. severe septic shock from infected PD catheter The high wbc is all infection related. H?H low, and may get replacement transfusion with the next HD. Prognosis remain quite poor. Patient seen/examined, extubated, now on V Mask. labs reviewed. patient seen/examined, resting in bed, still some what lethargic . labs reviewed. Patient seen/examined, resting in bed., some difficulty with breathing./ lethargic. patient seen/examined, resting in bed, looked much better labs reviewed, and fair over all. Patient seen/examined, resting in bed, labs reviewed, case d/w her. Patient seen/examined, resting in bed on BIPAP., labs reviewed. patient seen/examined, resting in bed, on Bipap.labs reviewed, fairly stable. Patient seen today, resting in bed, labs reviewed, H/H low, and transfusion already ordered. Patient seen/examined, resting in bed, transferred back to the unit, due to resp failure. She is now on venting mask. had blood replacement done. Patient seen/examined in the ICU.labs reviewed. patient intubated this am. patient resting in bed.no new issues. Patient seen/examined in the ICU, on vent,Not readily responsive. patient seen, resting in bed, no new cbc ready.will order for today. Patient seen, resting in vent, labs reviewed.notes reviewed also. patient seen/examined, resting on vent, had HD yesterday, and today., labs reviewed. Objective - Constitutional Vitals: Vital Signs - 12hr 09/05/17 09/05/17 09/05/17 09:15 09:30 09:45 Temperature Pulse Rate 94 H 88 89 Pulse Rate [ Throughout] Respiratory 13 16 12 Rate Respiratory Rate [ Throughout] Blood Pressure 96/54 121/60 122/49 O2 Sat by Pulse 100 100 100 Oximetry O2 Sat by Pulse Oximetry [ Throughout] 09/05/17 09/05/17 09/05/17 10:00 10:15 10:30 Temperature Pulse Rate 87 82 85 Pulse Rate [ Throughout] Respiratory 13 20 20 Rate Respiratory Rate [ Throughout] Blood Pressure 119/54 111/57 119/53 O2 Sat by Pulse 100 100 100 Oximetry O2 Sat by Pulse Oximetry [ Throughout] 09/05/17 09/05/17 09/05/17 10:45 11:00 11:15 Temperature Pulse Rate 87 85 84 Pulse Rate [ Throughout] Respiratory 20 20 21 Rate Respiratory Rate [ Throughout] Blood Pressure 131/57 120/56 127/52 O2 Sat by Pulse 100 100 100 Oximetry O2 Sat by Pulse Oximetry [ Throughout] 09/05/17 09/05/17 09/05/17 11:30 11:45 12:00 Temperature 98.0 F Pulse Rate 86 91 H 88 Pulse Rate [ Throughout] Respiratory 20 18 20 Rate Respiratory Rate [ Throughout] Blood Pressure 132/55 128/54 130/55 O2 Sat by Pulse 100 100 100 Oximetry O2 Sat by Pulse Oximetry [ Throughout] 09/05/17 09/05/17 09/05/17 12:15 12:30 12:45 Temperature Pulse Rate 88 88 87 Pulse Rate [ Throughout] Respiratory 20 20 20 Rate Respiratory Rate [ Throughout] Blood Pressure 132/58 115/52 110/53 O2 Sat by Pulse 100 100 100 Oximetry O2 Sat by Pulse Oximetry [ Throughout] 09/05/17 09/05/17 09/05/17 13:00 13:15 13:30 Temperature Pulse Rate 91 H 90 87 Pulse Rate [ Throughout] Respiratory 20 20 20 Rate Respiratory Rate [ Throughout] Blood Pressure 121/46 123/50 124/52 O2 Sat by Pulse 100 100 100 Oximetry O2 Sat by Pulse Oximetry [ Throughout] 09/05/17 09/05/17 09/05/17 13:45 14:00 14:15 Temperature Pulse Rate 84 87 85 Pulse Rate [ Throughout] Respiratory 19 20 20 Rate Respiratory Rate [ Throughout] Blood Pressure 142/60 122/53 117/51 O2 Sat by Pulse 100 100 100 Oximetry O2 Sat by Pulse Oximetry [ Throughout] 09/05/17 09/05/17 09/05/17 14:30 14:31 14:44 Temperature Pulse Rate 87 Pulse Rate [ 86 92 H Throughout] Respiratory 19 Rate Respiratory 20 20 Rate [ Throughout] Blood Pressure 117/49 O2 Sat by Pulse 100 Oximetry O2 Sat by Pulse Oximetry [ Throughout] 09/05/17 09/05/17 09/05/17 14:45 15:00 15:15 Temperature 99.2 F Pulse Rate 84 84 90 Pulse Rate [ Throughout] Respiratory 20 20 16 Rate Respiratory Rate [ Throughout] Blood Pressure 127/47 123/49 116/53 O2 Sat by Pulse 100 100 100 Oximetry O2 Sat by Pulse 100 Oximetry [ Throughout] 09/05/17 09/05/17 09/05/17 15:30 15:37 15:45 Temperature 99.2 F Pulse Rate 90 87 Pulse Rate [ Throughout] Respiratory 18 20 Rate Respiratory Rate [ Throughout] Blood Pressure 116/53 106/52 O2 Sat by Pulse 100 100 Oximetry O2 Sat by Pulse Oximetry [ Throughout] 09/05/17 09/05/17 09/05/17 16:00 16:01 16:15 Temperature Pulse Rate 77 83 84 Pulse Rate [ Throughout] Respiratory 20 17 Rate Respiratory Rate [ Throughout] Blood Pressure 161/73 161/73 147/56 O2 Sat by Pulse 100 100 100 Oximetry O2 Sat by Pulse Oximetry [ Throughout] 09/05/17 09/05/17 09/05/17 16:30 16:34 16:45 Temperature Pulse Rate 87 100 H 84 Pulse Rate [ Throughout] Respiratory 17 20 Rate Respiratory Rate [ Throughout] Blood Pressure 144/70 147/56 157/76 O2 Sat by Pulse 100 86 100 Oximetry O2 Sat by Pulse Oximetry [ Throughout] 09/05/17 09/05/17 09/05/17 17:01 17:08 17:15 Temperature Pulse Rate 87 87 87 Pulse Rate [ Throughout] Respiratory 20 20 Rate Respiratory Rate [ Throughout] Blood Pressure 131/71 131/71 143/68 O2 Sat by Pulse 100 100 Oximetry O2 Sat by Pulse Oximetry [ Throughout] 09/05/17 09/05/17 09/05/17 17:30 17:31 17:45 Temperature Pulse Rate 91 H 91 H 87 Pulse Rate [ Throughout] Respiratory 20 21 Rate Respiratory Rate [ Throughout] Blood Pressure 127/73 127/73 140/86 O2 Sat by Pulse 100 100 Oximetry O2 Sat by Pulse Oximetry [ Throughout] 09/05/17 09/05/17 09/05/17 18:00 18:12 18:15 Temperature 99.2 F Pulse Rate 98 H 92 H 94 H Pulse Rate [ Throughout] Respiratory 15 24 12 Rate Respiratory Rate [ Throughout] Blood Pressure 123/76 123/76 131/76 O2 Sat by Pulse 100 100 Oximetry O2 Sat by Pulse 100 Oximetry [ Throughout] 09/05/17 09/05/17 09/05/17 18:31 18:45 19:54 Temperature Pulse Rate 89 93 H 100 H Pulse Rate [ Throughout] Respiratory 20 20 Rate Respiratory Rate [ Throughout] Blood Pressure 139/76 120/72 148/70 O2 Sat by Pulse 100 100 100 Oximetry O2 Sat by Pulse Oximetry [ Throughout] 09/05/17 09/05/17 09/05/17 19:56 20:00 20:06 Temperature 99.1 F Pulse Rate Pulse Rate [ 94 H 87 Throughout] Respiratory Rate Respiratory 20 20 Rate [ Throughout] Blood Pressure O2 Sat by Pulse Oximetry O2 Sat by Pulse Oximetry [ Throughout] General appearance: Present: severe distress, well-nourished - EENT Eyes: PERRL, EOM intact ENT: hearing intact, clear oral mucosa Ears: bilateral: normal - Neck Neck: supple, normal ROM - Respiratory Respiratory: bilateral: diminished (on vent.) - Breasts Breasts: deferred - Cardiovascular Rhythm: regular Heart Sounds: Present: S1 & S2. Absent: gallop, rub Extremities: pulses intact, No edema, normal color, Full ROM - Gastrointestinal General gastrointestinal: Present: soft, non-tender, non-distended, normal bowel sounds Rectal Exam: deferred - Genitourinary Female genitourinary: deferred - Integumentary Integumentary: clear, warm, dry - Musculoskeletal Musculoskeletal: 1, strength equal bilaterally - Neurologic Neurologic: moves all extremities - Labs CBC & Chem 7: 09/05/17 03:55 09/05/17 03:55 Labs: Abnormal lab results 09/04/17 09/05/17 09/05/17 Range/Units 12:38 00:15 03:55 WBC 35.3 H (4.5-11.0) K/mm3 RBC 2.87 L (3.65-5.03) M/mm3 Hgb 8.1 L (10.1-14.3) gm/dl Hct 24.6 L (30.3-42.9) % RDW 23.3 H (13.2-15.2) % Seg Neuts % (Manual) 89.5 H (40.0-70.0) % Lymphocytes % (Manual) 3.0 L (13.4-35.0) % Nucleated RBC % 2.5 H (0.0-0.9) % Seg Neutrophils # Man 31.6 H (1.8-7.7) K/mm3 Lymphocytes # (Manual) 1.1 L (1.2-5.4) K/mm3 Sodium (137-145) mmol/L Chloride (98-107) mmol/L BUN (7-17) mg/dL Creatinine (0.7-1.2) mg/dL Glucose (65-100) mg/dL POC Glucose 444 H 362 H (70-105) Calcium (8.4-10.2) mg/dL 09/05/17 09/05/17 09/05/17 Range/Units 03:55 12:12 14:32 WBC (4.5-11.0) K/mm3 RBC (3.65-5.03) M/mm3 Hgb (10.1-14.3) gm/dl Hct (30.3-42.9) % RDW (13.2-15.2) % Seg Neuts % (Manual) (40.0-70.0) % Lymphocytes % (Manual) (13.4-35.0) % Nucleated RBC % (0.0-0.9) % Seg Neutrophils # Man (1.8-7.7) K/mm3 Lymphocytes # (Manual) (1.2-5.4) K/mm3 Sodium 136 L (137-145) mmol/L Chloride 94.7 L (98-107) mmol/L BUN 55 H (7-17) mg/dL Creatinine 1.8 H (0.7-1.2) mg/dL Glucose 193 H (65-100) mg/dL POC Glucose 344 H 265 H (70-105) Calcium 8.1 L (8.4-10.2) mg/dL 09/05/17 09/05/17 09/05/17 Range/Units 15:32 16:41 17:28 WBC (4.5-11.0) K/mm3 RBC (3.65-5.03) M/mm3 Hgb (10.1-14.3) gm/dl Hct (30.3-42.9) % RDW (13.2-15.2) % Seg Neuts % (Manual) (40.0-70.0) % Lymphocytes % (Manual) (13.4-35.0) % Nucleated RBC % (0.0-0.9) % Seg Neutrophils # Man (1.8-7.7) K/mm3 Lymphocytes # (Manual) (1.2-5.4) K/mm3 Sodium (137-145) mmol/L Chloride (98-107) mmol/L BUN (7-17) mg/dL Creatinine (0.7-1.2) mg/dL Glucose (65-100) mg/dL POC Glucose 145 H 188 H 246 H (70-105) Calcium (8.4-10.2) mg/dL 09/05/17 09/05/17 09/05/17 Range/Units 18:38 20:10 21:06 WBC (4.5-11.0) K/mm3 RBC (3.65-5.03) M/mm3 Hgb (10.1-14.3) gm/dl Hct (30.3-42.9) % RDW (13.2-15.2) % Seg Neuts % (Manual) (40.0-70.0) % Lymphocytes % (Manual) (13.4-35.0) % Nucleated RBC % (0.0-0.9) % Seg Neutrophils # Man (1.8-7.7) K/mm3 Lymphocytes # (Manual) (1.2-5.4) K/mm3 Sodium (137-145) mmol/L Chloride (98-107) mmol/L BUN (7-17) mg/dL Creatinine (0.7-1.2) mg/dL Glucose (65-100) mg/dL POC Glucose 271 H 165 H 134 H (70-105) Calcium (8.4-10.2) mg/dL
[2017-09-05] MEDS: LEVOPHED 8 MG in NACL 0.9% 250ML 242 ML IV SCH (22:31)
[2017-09-06] MEDS: DUONEB *Not for PRN Use IH SCH ×4 (01:23→20:55)
[2017-09-06] MEDS: fentaNYL DRIP Premix 2,000 MCG/100 ML BAG IV SCH ×3 (05:18→21:54)
[2017-09-06 05:42] LABS: Hematocrit 25.3 % (30.3-42.9); Hemoglobin 8.3 gm/dl (10.1-14.3); Mean Corpuscular HGB Conc 33 % (30-34); Mean Corpuscular Hemoglobin 28 pg (28-32); Mean Corpuscular Volume 86 fl (79-97); Platelet Count 250 K/mm3 (140-440); Red Blood Count 2.95 M/mm3 (3.65-5.03)
[2017-09-06 05:43] LABS: Red Cell Distribution Width 22.2 % (13.2-15.2); White Blood Count 38.6 K/mm3 (4.5-11.0)
[2017-09-06 06:04] LABS: Calcium 8.4 mg/dL (8.4-10.2); Chloride 93.5 mmol/L (98-107); Phosphorous 4.5 mg/dL (2.5-4.5); Potassium 4.2 mmol/L (3.6-5.0)
[2017-09-06 06:38] LABS: Anisocytosis 2+; Basophils % (Manual) 0 % (0.0-1.8); Blastocytes % (Manual) 0 %; Diff Status Complete; Eosinophils % (Manual) 0 % (0.0-4.3); Platelet Estimate Consistent w Auto; Polychromasia Rare
--- NOTE | 2017-09-06 08:56 | Progress Note ---
Assessment and Plan - Patient Problems (1) ESRD (end stage renal disease) on dialysis Current Visit: Yes Status: Acute Plan to address problem: Continue HD on MWF and Isolated UF on TTS. Patient is on TPN. (2) Hyperkalemia Current Visit: Yes Status: Acute Plan to address problem: K level is better today. (3) Anemia Current Visit: No Status: Chronic Qualifiers: Anemia type: due to chronic kidney disease Iron deficiency anemia type: I Vitamin B12 deficiency anemia type: V Folate deficiency anemia type: F Bone marrow failure anemia type: B Hemolytic anemia type: H Other causes of anemia: O Chronic kidney disease stage: on chronic dialysis Qualified Code(s ): N18.6 - End stage renal disease; D63.1 - Anemia in chronic kidney disease; Z99.2 - Dependence on renal dialysis Plan to address problem: S/p multiple units of PRBC. Epogen. (4) Hypotension Current Visit: Yes Status: Chronic Qualifiers: Hypotension type: H Trimester: T Plan to address problem: On Levophed. (5) Volume overload Current Visit: Yes Status: Acute Qualifiers: Hypervolemia type: H Plan to address problem: UF as tolerated. (6) Leukocytosis Current Visit: Yes Status: Acute Qualifiers: Leukocytosis type: unspecified Qualified Code(s): D72.829 - Elevated white blood cell count, unspecified (7) Acute respiratory failure with hypoxemia Current Visit: Yes Status: Acute Plan to address problem: On the vent. (8) Sepsis Current Visit: Yes Status: Acute Qualifiers: Sepsis type: S Subjective Date of service: 09/06/17 Principal diagnosis: Interval history: Patient was seen and examined at the bedside. Patient remain intubated. Objective - Vital Signs Vital signs: Vital Signs - 12hr 09/05/17 09/05/17 09/05/17 21:00 21:15 21:30 Temperature Pulse Rate 92 H 91 H 98 H Pulse Rate [ Throughout] Respiratory 16 21 17 Rate Respiratory Rate [ Throughout] Blood Pressure 133/57 127/56 117/47 O2 Sat by Pulse 100 100 100 Oximetry 09/05/17 09/05/17 09/05/17 21:45 22:00 22:15 Temperature Pulse Rate 88 89 88 Pulse Rate [ Throughout] Respiratory 21 17 20 Rate Respiratory Rate [ Throughout] Blood Pressure 129/54 132/58 129/59 O2 Sat by Pulse 100 100 100 Oximetry 09/05/17 09/05/17 09/05/17 22:30 22:45 23:00 Temperature Pulse Rate 90 85 87 Pulse Rate [ Throughout] Respiratory 19 20 19 Rate Respiratory Rate [ Throughout] Blood Pressure 126/56 98/49 105/48 O2 Sat by Pulse 100 100 100 Oximetry 09/05/17 09/05/17 09/05/17 23:15 23:30 23:31 Temperature Pulse Rate 86 87 86 Pulse Rate [ Throughout] Respiratory 19 20 20 Rate Respiratory Rate [ Throughout] Blood Pressure 114/51 116/55 116/55 O2 Sat by Pulse 100 100 100 Oximetry 09/05/17 09/06/17 09/06/17 23:45 00:00 00:15 Temperature 99.6 F Pulse Rate 85 85 85 Pulse Rate [ Throughout] Respiratory 20 20 20 Rate Respiratory Rate [ Throughout] Blood Pressure 124/53 123/54 127/58 O2 Sat by Pulse 100 100 100 Oximetry 09/06/17 09/06/17 09/06/17 00:30 00:45 01:00 Temperature Pulse Rate 85 85 86 Pulse Rate [ Throughout] Respiratory 21 20 17 Rate Respiratory Rate [ Throughout] Blood Pressure 124/58 130/58 123/59 O2 Sat by Pulse 100 100 100 Oximetry 09/06/17 09/06/17 09/06/17 01:15 01:23 01:30 Temperature Pulse Rate 86 87 Pulse Rate [ 91 H Throughout] Respiratory 20 11 L Rate Respiratory 20 Rate [ Throughout] Blood Pressure 121/59 113/57 O2 Sat by Pulse 100 100 Oximetry 09/06/17 09/06/17 09/06/17 01:38 01:45 02:00 Temperature Pulse Rate 87 86 Pulse Rate [ 93 H Throughout] Respiratory 19 19 Rate Respiratory 20 Rate [ Throughout] Blood Pressure 119/55 114/56 O2 Sat by Pulse 100 100 Oximetry 09/06/17 09/06/17 09/06/17 02:15 02:30 02:45 Temperature Pulse Rate 86 85 84 Pulse Rate [ Throughout] Respiratory 17 20 20 Rate Respiratory Rate [ Throughout] Blood Pressure 120/52 127/52 123/57 O2 Sat by Pulse 100 100 100 Oximetry 09/06/17 09/06/17 09/06/17 03:00 03:15 03:30 Temperature Pulse Rate 85 86 84 Pulse Rate [ Throughout] Respiratory 20 19 20 Rate Respiratory Rate [ Throughout] Blood Pressure 127/54 122/56 126/59 O2 Sat by Pulse 100 100 100 Oximetry 09/06/17 09/06/17 09/06/17 03:45 04:00 04:15 Temperature 99.4 F Pulse Rate 85 85 85 Pulse Rate [ Throughout] Respiratory 20 20 20 Rate Respiratory Rate [ Throughout] Blood Pressure 128/58 125/57 129/60 O2 Sat by Pulse 100 100 100 Oximetry 09/06/17 09/06/17 09/06/17 04:22 04:30 04:45 Temperature Pulse Rate 84 85 87 Pulse Rate [ Throughout] Respiratory 18 20 Rate Respiratory Rate [ Throughout] Blood Pressure 129/60 109/60 117/54 O2 Sat by Pulse 100 100 100 Oximetry 09/06/17 09/06/17 09/06/17 05:00 05:15 05:30 Temperature Pulse Rate 87 86 89 Pulse Rate [ Throughout] Respiratory 20 20 18 Rate Respiratory Rate [ Throughout] Blood Pressure 115/60 115/53 113/52 O2 Sat by Pulse 100 100 100 Oximetry 09/06/17 09/06/17 09/06/17 05:45 06:00 06:15 Temperature Pulse Rate 88 88 86 Pulse Rate [ Throughout] Respiratory 17 19 19 Rate Respiratory Rate [ Throughout] Blood Pressure 111/49 113/47 113/51 O2 Sat by Pulse 100 100 100 Oximetry 09/06/17 09/06/17 09/06/17 06:30 06:45 07:00 Temperature Pulse Rate 87 87 86 Pulse Rate [ Throughout] Respiratory 19 16 19 Rate Respiratory Rate [ Throughout] Blood Pressure 110/53 111/56 114/52 O2 Sat by Pulse 100 100 100 Oximetry 09/06/17 09/06/17 09/06/17 07:15 07:30 07:45 Temperature Pulse Rate 86 88 87 Pulse Rate [ Throughout] Respiratory 19 19 16 Rate Respiratory Rate [ Throughout] Blood Pressure 102/55 117/51 115/52 O2 Sat by Pulse 100 100 100 Oximetry 09/06/17 07:50 Temperature 99.5 F Pulse Rate Pulse Rate [ Throughout] Respiratory Rate Respiratory Rate [ Throughout] Blood Pressure O2 Sat by Pulse Oximetry - General Appearance General appearance: well-developed, appears stated age, obese, sedated on ventilator (FiO2 40%), intubated, other (right IJ temp catheter) EENT: ATNC Neck: supple Respiratory: Present: Other (coarse breath sounds) Cardiology: regular, S1S2, no murmurs Gastrointestinal: normoactive bowel sounds, no tenderness, obese, other (PEG tube noted) Neurologic: other (opens eyes) Musculoskeletal: other (2+ edema of both LEs noted) - Lab 09/06/17 05:30 09/06/17 05:30 Most recent lab results ABG pH 7.415 pH Units (7.350-7.450) 09/04/17 03:47 ABG pCO2 34.6 mm Hg 09/04/17 03:47 ABG pO2 135.0 mm Hg (80.0-90.0) H 09/04/17 03:47 ABG HCO3 21.7 mmol/L (20.0-26.0) 09/04/17 03:47 ABG O2 Saturation 98.7 % (95.0-99.0) 09/04/17 03:47 Calcium 8.4 mg/dL (8.4-10.2) 09/06/17 05:30 Phosphorus 4.50 mg/dL (2.5-4.5) D 09/06/17 05:30 Magnesium 1.90 mg/dL (1.7-2.3) 09/05/17 03:55
[2017-09-06] MEDS: DIFLUCAN 200 MG/100 ML BAG IV SCH (09:23)
[2017-09-06] MEDS: ZYVOX 600MG/300ML 600 MG/300 ML BAG IV SCH ×2 (09:23→21:26)
--- NOTE | 2017-09-06 09:55 | Progress Note ---
Assessment and Plan 62 y/o female originally admitted with hypotension, now back to ICU secondary to worsening hypotension, concern for sepsis, with acute respiratory failure post-op from ex-lap for abdominal distention and possible ileus, now back from OR after worsening respiratory failure, requiring re-intubation and wash out of abdomen 1. Family is agreeable to trach. Surgery arranging now. Family has agreed to LTACH placement as well. However, suggest that LTACH be firmly aware of abdominal issues and have surgery there that is willing to follow. 2. HD per renal, per charting, again today. 3. Continue PSV trials as tolerated. Rest on rate while on HD 4. Abx therapy as previously ordered per ID. Await repeat CT of abdomen results 5. Wean levo for MAPS >60, have not been able to come off as she drops immediately. 6. Called by [facility]MS in regards to surgery and ID which I have spoken to surgery. Dropping to 25q12 today, will have off by end of weekend 7. On rounds, discussed the possiblity of infected wells. Nursing to reassess, if skin is inflamed or irritated, will culture. ID on board and on broad spec abx therapy but no gram negative coverage Overall prognosis is guarded to poor CCT 31 Subjective Date of service: 09/06/17 Principal diagnosis: Interval history: No acute events. Trach scheduled for today. ID following and has ordered a repeat CT of abdomen. Reviewed surgery note. This am ID said they saw dark blood in rectum. HgB is stable. Still requiring pressors. Objective Vital Signs - 12hr 09/05/17 09/05/17 09/05/17 22:00 22:15 22:30 Temperature Pulse Rate 89 88 90 Pulse Rate [ Throughout] Respiratory 17 20 19 Rate Respiratory Rate [ Throughout] Blood Pressure 132/58 129/59 126/56 O2 Sat by Pulse 100 100 100 Oximetry 09/05/17 09/05/17 09/05/17 22:45 23:00 23:15 Temperature Pulse Rate 85 87 86 Pulse Rate [ Throughout] Respiratory 20 19 19 Rate Respiratory Rate [ Throughout] Blood Pressure 98/49 105/48 114/51 O2 Sat by Pulse 100 100 100 Oximetry 09/05/17 09/05/17 09/05/17 23:30 23:31 23:45 Temperature Pulse Rate 87 86 85 Pulse Rate [ Throughout] Respiratory 20 20 20 Rate Respiratory Rate [ Throughout] Blood Pressure 116/55 116/55 124/53 O2 Sat by Pulse 100 100 100 Oximetry 09/06/17 09/06/17 09/06/17 00:00 00:15 00:30 Temperature 99.6 F Pulse Rate 85 85 85 Pulse Rate [ Throughout] Respiratory 20 20 21 Rate Respiratory Rate [ Throughout] Blood Pressure 123/54 127/58 124/58 O2 Sat by Pulse 100 100 100 Oximetry 09/06/17 09/06/17 09/06/17 00:45 01:00 01:15 Temperature Pulse Rate 85 86 86 Pulse Rate [ Throughout] Respiratory 20 17 20 Rate Respiratory Rate [ Throughout] Blood Pressure 130/58 123/59 121/59 O2 Sat by Pulse 100 100 100 Oximetry 09/06/17 09/06/17 09/06/17 01:23 01:30 01:38 Temperature Pulse Rate 87 Pulse Rate [ 91 H 93 H Throughout] Respiratory 11 L Rate Respiratory 20 20 Rate [ Throughout] Blood Pressure 113/57 O2 Sat by Pulse 100 Oximetry 09/06/17 09/06/17 09/06/17 01:45 02:00 02:15 Temperature Pulse Rate 87 86 86 Pulse Rate [ Throughout] Respiratory 19 19 17 Rate Respiratory Rate [ Throughout] Blood Pressure 119/55 114/56 120/52 O2 Sat by Pulse 100 100 100 Oximetry 09/06/17 09/06/17 09/06/17 02:30 02:45 03:00 Temperature Pulse Rate 85 84 85 Pulse Rate [ Throughout] Respiratory 20 20 20 Rate Respiratory Rate [ Throughout] Blood Pressure 127/52 123/57 127/54 O2 Sat by Pulse 100 100 100 Oximetry 09/06/17 09/06/17 09/06/17 03:15 03:30 03:45 Temperature Pulse Rate 86 84 85 Pulse Rate [ Throughout] Respiratory 19 20 20 Rate Respiratory Rate [ Throughout] Blood Pressure 122/56 126/59 128/58 O2 Sat by Pulse 100 100 100 Oximetry 09/06/17 09/06/17 09/06/17 04:00 04:15 04:22 Temperature 99.4 F Pulse Rate 85 85 84 Pulse Rate [ Throughout] Respiratory 20 20 Rate Respiratory Rate [ Throughout] Blood Pressure 125/57 129/60 129/60 O2 Sat by Pulse 100 100 100 Oximetry 09/06/17 09/06/17 09/06/17 04:30 04:45 05:00 Temperature Pulse Rate 85 87 87 Pulse Rate [ Throughout] Respiratory 18 20 20 Rate Respiratory Rate [ Throughout] Blood Pressure 109/60 117/54 115/60 O2 Sat by Pulse 100 100 100 Oximetry 09/06/17 09/06/17 09/06/17 05:15 05:30 05:45 Temperature Pulse Rate 86 89 88 Pulse Rate [ Throughout] Respiratory 20 18 17 Rate Respiratory Rate [ Throughout] Blood Pressure 115/53 113/52 111/49 O2 Sat by Pulse 100 100 100 Oximetry 09/06/17 09/06/17 09/06/17 06:00 06:15 06:30 Temperature Pulse Rate 88 86 87 Pulse Rate [ Throughout] Respiratory 19 19 19 Rate Respiratory Rate [ Throughout] Blood Pressure 113/47 113/51 110/53 O2 Sat by Pulse 100 100 100 Oximetry 09/06/17 09/06/17 09/06/17 06:45 07:00 07:15 Temperature Pulse Rate 87 86 86 Pulse Rate [ Throughout] Respiratory 16 19 19 Rate Respiratory Rate [ Throughout] Blood Pressure 111/56 114/52 102/55 O2 Sat by Pulse 100 100 100 Oximetry 09/06/17 09/06/17 09/06/17 07:30 07:45 07:50 Temperature 99.5 F Pulse Rate 88 87 Pulse Rate [ Throughout] Respiratory 19 16 Rate Respiratory Rate [ Throughout] Blood Pressure 117/51 115/52 O2 Sat by Pulse 100 100 Oximetry 09/06/17 09/06/17 09/06/17 08:51 08:57 09:06 Temperature Pulse Rate 84 Pulse Rate [ 88 89 Throughout] Respiratory Rate Respiratory 20 20 Rate [ Throughout] Blood Pressure 103/51 O2 Sat by Pulse 100 Oximetry Constitutional: other (critically ill on vent, obese) Eyes: non-icteric ENT: oropharynx moist, other (NGT) Neck: supple, no lymphadenopathy Effort: mildly labored Ascultation: Bilateral: clear (anteriorly), diminished breath sounds, wheezes ( faint expiratory wheezes), rhonchi (occ), other (coarse BS bilaterally) Cardiovascular: regular rate and rhythm Gastrointestinal: absent bowel sounds, non-tender, other (abdominal incision with new dressing noted, obese) Integumentary: normal Extremities: no cyanosis, pink and warm, edema (3+ bilateral LE edema) Neurologic: non-focal exam, pupils equal and round, other (somnolent) Psychiatric: mood appropriate, affect normal CBC and BMP: 09/06/17 05:30 09/06/17 05:30 ABG, PT/INR, D-dimer: ABG POC ABG pH 7.335 (7.35-7.45) L 08/30/17 03:31 ABG pH 7.415 pH Units (7.350-7.450) 09/04/17 03:47 POC ABG pCO2 44.1 (35-45) 08/30/17 03:31 ABG pCO2 34.6 mm Hg 09/04/17 03:47 POC ABG pO2 117 (80-105) H 08/30/17 03:31 ABG pO2 135.0 mm Hg (80.0-90.0) H 09/04/17 03:47 POC ABG HCO3 23.5 08/30/17 03:31 POC ABG Total CO2 25 08/30/17 03:31 POC ABG O2 Sat 98 08/30/17 03:31 ABG O2 Saturation 98.7 % (95.0-99.0) 09/04/17 03:47 PT/INR, D-dimer PT 15.1 Sec. (12.2-14.9) H 08/31/17 18:15 INR 1.13 (0.87-1.13) 08/31/17 18:15 Abnormal lab findings: Abnormal Labs 08/08/17 08/08/17 08/09/17 21:23 21:31 11:19 WBC 15.7 H RBC 2.93 L Hgb 8.7 L Hct 26.8 L MCV MCH RDW 19.2 H Plt Count Lymph % (Auto) [place] % (Auto) [place] # Seg Neutrophils % Seg Neuts % (Manual) Lymphocytes % (Manual) Monocytes % (Manual) Nucleated RBC % Seg Neutrophils # Seg Neutrophils # Man Lymphocytes # (Manual) Monocytes # (Manual) Eosinophils # (Manual) Basophils # (Manual) PT INR POC ABG pH 7.490 H ABG pH POC ABG pCO2 POC ABG pO2 122 H ABG pO2 ABG Base Excess ABG Hemoglobin Sodium Potassium Chloride Carbon Dioxide BUN Creatinine Glucose POC Glucose Calcium Phosphorus Magnesium AST ALT Alkaline Phosphatase Troponin T 0.133 H* C-Reactive Protein Total Protein Albumin Triglycerides HDL Cholesterol 26 L Miscellaneous Test Crossmatch 08/09/17 08/10/17 08/10/17 13:25 04:45 04:45 WBC 15.5 H RBC 2.97 L Hgb 8.9 L Hct 27.0 L MCV MCH RDW 19.2 H Plt Count Lymph % (Auto) [place] % (Auto) [place] # Seg Neutrophils % Seg Neuts % (Manual) 73.0 H Lymphocytes % (Manual) 7.0 L Monocytes % (Manual) 14.0 H Nucleated RBC % Seg Neutrophils # Seg Neutrophils # Man 11.3 H Lymphocytes # (Manual) 1.1 L Monocytes # (Manual) 2.2 H Eosinophils # (Manual) Basophils # (Manual) 0.2 H PT INR POC ABG pH ABG pH POC ABG pCO2 POC ABG pO2 ABG pO2 ABG Base Excess ABG Hemoglobin Sodium Potassium 3.3 L Chloride 97.3 L Carbon Dioxide 21 L BUN 23 H Creatinine 6.5 H Glucose POC Glucose Calcium 7.3 L Phosphorus Magnesium AST ALT Alkaline Phosphatase 138 H Troponin T 0.132 H* C-Reactive Protein Total Protein 4.8 L Albumin 1.4 L Triglycerides HDL Cholesterol Miscellaneous Test Crossmatch 08/11/17 08/11/17 08/12/17 04:00 04:00 05:50 WBC 19.3 H RBC 3.10 L Hgb 9.5 L Hct 28.2 L MCV MCH RDW 19.2 H Plt Count 463 H Lymph % (Auto) 7.5 L [place] % (Auto) 14.6 H [place] # 2.8 H Seg Neutrophils % 77.0 H Seg Neuts % (Manual) Lymphocytes % (Manual) Monocytes % (Manual) Nucleated RBC % Seg Neutrophils # 14.8 H Seg Neutrophils # Man Lymphocytes # (Manual) Monocytes # (Manual) Eosinophils # (Manual) Basophils # (Manual) PT INR POC ABG pH ABG pH POC ABG pCO2 POC ABG pO2 ABG pO2 ABG Base Excess ABG Hemoglobin Sodium 136 L 136 L Potassium 3.3 L Chloride 96.3 L 96.6 L Carbon Dioxide BUN 26 H 26 H Creatinine 6.4 H 6.2 H Glucose 135 H 133 H POC Glucose Calcium 8.2 L Phosphorus Magnesium 1.30 L AST ALT Alkaline Phosphatase 139 H Troponin T C-Reactive Protein Total Protein 5.5 L Albumin 1.7 L Triglycerides HDL Cholesterol Miscellaneous Test Crossmatch 09/08/12/17 08/12/17 05:50 05:50 05:50 WBC 20.1 H RBC 3.06 L Hgb 9.3 L Hct 27.9 L MCV MCH RDW 18.4 H Plt Count 471 H Lymph % (Auto) [place] % (Auto) [place] # Seg Neutrophils % Seg Neuts % (Manual) 85.0 H Lymphocytes % (Manual) 8.0 L Monocytes % (Manual) Nucleated RBC % Seg Neutrophils # Seg Neutrophils # Man 17.1 H Lymphocytes # (Manual) Monocytes # (Manual) 1.0 H Eosinophils # (Manual) Basophils # (Manual) PT 15.2 H INR 1.14 H POC ABG pH ABG pH POC ABG pCO2 POC ABG pO2 ABG pO2 ABG Base Excess ABG Hemoglobin Sodium Potassium Chloride Carbon Dioxide BUN Creatinine Glucose POC Glucose Calcium Phosphorus Magnesium AST ALT Alkaline Phosphatase Troponin T C-Reactive Protein 28.90 H Total Protein Albumin Triglycerides HDL Cholesterol Miscellaneous Test Crossmatch 08/12/17 08/13/17 08/13/17 16:23 06:14 06:14 WBC 21.8 H RBC 3.11 L Hgb 9.4 L Hct 28.2 L MCV MCH RDW 18.2 H Plt Count 492 H Lymph % (Auto) [place] % (Auto) [place] # Seg Neutrophils % Seg Neuts % (Manual) 73.0 H Lymphocytes % (Manual) 2.0 L Monocytes % (Manual) 15 H Nucleated RBC % Seg Neutrophils # Seg Neutrophils # Man 15.9 H Lymphocytes # (Manual) 0.4 L Monocytes # (Manual) 2.4 H Eosinophils # (Manual) Basophils # (Manual) PT INR POC ABG pH ABG pH POC ABG pCO2 POC ABG pO2 ABG pO2 ABG Base Excess ABG Hemoglobin Sodium Potassium Chloride 96.2 L Carbon Dioxide BUN 28 H Creatinine 5.6 H Glucose 114 H POC Glucose Calcium Phosphorus Magnesium AST ALT Alkaline Phosphatase Troponin T C-Reactive Protein 26.10 H Total Protein Albumin Triglycerides HDL Cholesterol Miscellaneous Test Crossmatch 08/13/17 08/14/17 08/14/17 16:39 04:00 04:00 WBC 22.1 H RBC 3.25 L Hgb 9.9 L Hct 29.5 L MCV MCH RDW 17.9 H Plt Count 525 H Lymph % (Auto) [place] % (Auto) [place] # Seg Neutrophils % Seg Neuts % (Manual) 74.0 H Lymphocytes % (Manual) 8.0 L Monocytes % (Manual) 12.0 H Nucleated RBC % Seg Neutrophils # Seg Neutrophils # Man 16.4 H Lymphocytes # (Manual) Monocytes # (Manual) 2.7 H Eosinophils # (Manual) Basophils # (Manual) PT INR POC ABG pH ABG pH POC ABG pCO2 POC ABG pO2 ABG pO2 ABG Base Excess ABG Hemoglobin Sodium 134 L Potassium 3.3 L Chloride 93.3 L Carbon Dioxide BUN 27 H Creatinine 6.0 H Glucose 152 H POC Glucose 151 H Calcium Phosphorus Magnesium AST ALT Alkaline Phosphatase Troponin T C-Reactive Protein Total Protein Albumin Triglycerides HDL Cholesterol Miscellaneous Test Crossmatch 08/15/17 08/16/17 08/16/17 09:10 09:50 09:50 WBC 31.1 H RBC 3.21 L Hgb 9.6 L Hct 29.3 L MCV MCH RDW 18.1 H Plt Count 642 H Lymph % (Auto) [place] % (Auto) [place] # Seg Neutrophils % Seg Neuts % (Manual) 74.0 H Lymphocytes % (Manual) 4.0 L Monocytes % (Manual) 9.0 H Nucleated RBC % Seg Neutrophils # Seg Neutrophils # Man 23.0 H Lymphocytes # (Manual) Monocytes # (Manual) 2.8 H Eosinophils # (Manual) Basophils # (Manual) PT INR POC ABG pH ABG pH POC ABG pCO2 POC ABG pO2 ABG pO2 ABG Base Excess ABG Hemoglobin Sodium 136 L 136 L Potassium 3.5 L Chloride 97.6 L 94.9 L Carbon Dioxide BUN 27 H 28 H Creatinine 5.6 H 5.5 H Glucose 117 H 103 H POC Glucose Calcium Phosphorus Magnesium AST ALT Alkaline Phosphatase 137 H Troponin T C-Reactive Protein Total Protein 5.4 L Albumin 1.5 L Triglycerides HDL Cholesterol Miscellaneous Test Crossmatch 08/16/17 08/17/17 08/17/17 09:50 05:00 06:26 WBC RBC Hgb Hct MCV MCH RDW Plt Count Lymph % (Auto) [place] % (Auto) [place] # Seg Neutrophils % Seg Neuts % (Manual) Lymphocytes % (Manual) Monocytes % (Manual) Nucleated RBC % Seg Neutrophils # Seg Neutrophils # Man Lymphocytes # (Manual) Monocytes # (Manual) Eosinophils # (Manual) Basophils # (Manual) PT INR POC ABG pH ABG pH POC ABG pCO2 POC ABG pO2 ABG pO2 ABG Base Excess ABG Hemoglobin Sodium 134 L Potassium 3.0 L Chloride 97.8 L Carbon Dioxide BUN 30 H Creatinine 5.3 H Glucose 147 H POC Glucose 165 H Calcium 7.5 L Phosphorus Magnesium AST ALT Alkaline Phosphatase Troponin T C-Reactive Protein 32.30 H Total Protein Albumin Triglycerides HDL Cholesterol Miscellaneous Test Crossmatch 08/17/17 08/17/17 08/17/17 10:56 11:20 11:20 WBC 39.1 H RBC 3.10 L Hgb 9.2 L Hct 28.6 L MCV MCH RDW 18.3 H Plt Count 580 H Lymph % (Auto) [place] % (Auto) [place] # Seg Neutrophils % Seg Neuts % (Manual) 89.5 H Lymphocytes % (Manual) 3.5 L Monocytes % (Manual) Nucleated RBC % Seg Neutrophils # Seg Neutrophils # Man 35.0 H Lymphocytes # (Manual) Monocytes # (Manual) 2.5 H Eosinophils # (Manual) Basophils # (Manual) 0.2 H PT INR POC ABG pH 7.464 H ABG pH POC ABG pCO2 34.1 L POC ABG pO2 75 L ABG pO2 ABG Base Excess ABG Hemoglobin Sodium Potassium Chloride Carbon Dioxide BUN Creatinine Glucose POC Glucose Calcium Phosphorus Magnesium AST ALT Alkaline Phosphatase Troponin T C-Reactive Protein Total Protein Albumin Triglycerides HDL Cholesterol Miscellaneous Test Flexitest 1 H Crossmatch 08/17/17 08/17/17 08/17/17 11:20 16:57 20:20 WBC 34.4 H RBC 2.81 L Hgb 8.4 L Hct 26.0 L MCV MCH RDW 17.8 H Plt Count 455 H Lymph % (Auto) [place] % (Auto) [place] # Seg Neutrophils % Seg Neuts % (Manual) Lymphocytes % (Manual) 3.5 L Monocytes % (Manual) Nucleated RBC % 5.0 H Seg Neutrophils # Seg Neutrophils # Man 16.5 H Lymphocytes # (Manual) Monocytes # (Manual) 1.0 H Eosinophils # (Manual) Basophils # (Manual) PT 16.0 H INR 1.29 H POC ABG pH ABG pH POC ABG pCO2 POC ABG pO2 ABG pO2 ABG Base Excess ABG Hemoglobin Sodium 135 L Potassium 2.9 L* Chloride Carbon Dioxide 20 L BUN 32 H Creatinine 5.4 H Glucose 129 H POC Glucose Calcium 7.5 L Phosphorus Magnesium 1.50 L AST 85 H ALT Alkaline Phosphatase Troponin T C-Reactive Protein Total Protein 4.0 L D Albumin 1.6 L Triglycerides HDL Cholesterol Miscellaneous Test Crossmatch 08/17/17 08/17/17 08/18/17 20:54 23:47 04:26 WBC RBC Hgb Hct MCV MCH RDW Plt Count Lymph % (Auto) [place] % (Auto) [place] # Seg Neutrophils % Seg Neuts % (Manual) Lymphocytes % (Manual) Monocytes % (Manual) Nucleated RBC % Seg Neutrophils # Seg Neutrophils # Man Lymphocytes # (Manual) Monocytes # (Manual) Eosinophils # (Manual) Basophils # (Manual) PT INR POC ABG pH 7.557 H ABG pH POC ABG pCO2 23.1 L 29.0 L POC ABG pO2 187 H 148 H ABG pO2 ABG Base Excess ABG Hemoglobin Sodium Potassium Chloride Carbon Dioxide BUN Creatinine Glucose POC Glucose 188 H Calcium Phosphorus Magnesium AST ALT Alkaline Phosphatase Troponin T C-Reactive Protein Total Protein Albumin Triglycerides HDL Cholesterol Miscellaneous Test Crossmatch 08/18/17 08/18/17 08/18/17 05:51 11:44 17:07 WBC RBC Hgb Hct MCV MCH RDW Plt Count Lymph % (Auto) [place] % (Auto) [place] # Seg Neutrophils % Seg Neuts % (Manual) Lymphocytes % (Manual) Monocytes % (Manual) Nucleated RBC % Seg Neutrophils # Seg Neutrophils # Man Lymphocytes # (Manual) Monocytes # (Manual) Eosinophils # (Manual) Basophils # (Manual) PT INR POC ABG pH ABG pH POC ABG pCO2 POC ABG pO2 ABG pO2 ABG Base Excess ABG Hemoglobin Sodium Potassium Chloride Carbon Dioxide BUN Creatinine Glucose POC Glucose 202 H 195 H 182 H Calcium Phosphorus Magnesium AST ALT Alkaline Phosphatase Troponin T C-Reactive Protein Total Protein Albumin Triglycerides HDL Cholesterol Miscellaneous Test Crossmatch 08/18/17 08/18/17 08/18/17 23:45 Unknown Unknown WBC 39.0 H RBC 2.84 L Hgb 8.4 L Hct 26.5 L MCV MCH RDW 18.0 H Plt Count 476 H Lymph % (Auto) [place] % (Auto) [place] # Seg Neutrophils % Seg Neuts % (Manual) Lymphocytes % (Manual) 7.0 L Monocytes % (Manual) 10.0 H Nucleated RBC % 3.0 H Seg Neutrophils # Seg Neutrophils # Man 15.6 H Lymphocytes # (Manual) Monocytes # (Manual) 3.9 H Eosinophils # (Manual) Basophils # (Manual) PT INR POC ABG pH ABG pH POC ABG pCO2 POC ABG pO2 ABG pO2 ABG Base Excess ABG Hemoglobin Sodium Potassium Chloride Carbon Dioxide 19 L BUN 34 H Creatinine 5.6 H Glucose 201 H POC Glucose 163 H Calcium 7.8 L Phosphorus 1.90 L D Magnesium 1.60 L AST ALT Alkaline Phosphatase Troponin T C-Reactive Protein Total Protein Albumin Triglycerides HDL Cholesterol Miscellaneous Test Crossmatch 08/19/17 08/19/17 08/19/17 04:18 05:00 05:00 WBC 40.0 H RBC 2.46 L Hgb 7.3 L Hct 22.6 L MCV MCH RDW 18.1 H Plt Count Lymph % (Auto) [place] % (Auto) [place] # Seg Neutrophils % Seg Neuts % (Manual) Lymphocytes % (Manual) 8.0 L Monocytes % (Manual) Nucleated RBC % 2.0 H Seg Neutrophils # Seg Neutrophils # Man 16.4 H Lymphocytes # (Manual) Monocytes # (Manual) 1.2 H Eosinophils # (Manual) 1.2 H Basophils # (Manual) PT INR POC ABG pH 7.463 H ABG pH POC ABG pCO2 29.7 L POC ABG pO2 134 H ABG pO2 ABG Base Excess ABG Hemoglobin Sodium Potassium 5.1 H D Chloride Carbon Dioxide 20 L BUN 40 H Creatinine 5.3 H Glucose 128 H POC Glucose Calcium 7.8 L Phosphorus 1.90 L Magnesium AST ALT Alkaline Phosphatase Troponin T C-Reactive Protein Total Protein Albumin Triglycerides HDL Cholesterol Miscellaneous Test Crossmatch 08/19/17 08/19/17 08/19/17 05:19 07:37 09:52 WBC 45.0 H* RBC 2.50 L Hgb 7.5 L Hct 24.5 L MCV 98 H MCH RDW 18.4 H Plt Count Lymph % (Auto) [place] % (Auto) [place] # Seg Neutrophils % Seg Neuts % (Manual) 81.5 H Lymphocytes % (Manual) 4.0 L Monocytes % (Manual) Nucleated RBC % 1.0 H Seg Neutrophils # Seg Neutrophils # Man 36.7 H Lymphocytes # (Manual) Monocytes # (Manual) Eosinophils # (Manual) Basophils # (Manual) PT INR POC ABG pH ABG pH POC ABG pCO2 POC ABG pO2 ABG pO2 ABG Base Excess ABG Hemoglobin Sodium Potassium Chloride Carbon Dioxide BUN Creatinine Glucose POC Glucose 142 H Calcium Phosphorus Magnesium AST ALT Alkaline Phosphatase Troponin T C-Reactive Protein 34.20 H Total Protein Albumin Triglycerides HDL Cholesterol Miscellaneous Test Crossmatch 08/19/17 08/19/17 08/20/17 11:16 18:12 00:35 WBC RBC Hgb Hct MCV MCH RDW Plt Count Lymph % (Auto) [place] % (Auto) [place] # Seg Neutrophils % Seg Neuts % (Manual) Lymphocytes % (Manual) Monocytes % (Manual) Nucleated RBC % Seg Neutrophils # Seg Neutrophils # Man Lymphocytes # (Manual) Monocytes # (Manual) Eosinophils # (Manual) Basophils # (Manual) PT INR POC ABG pH ABG pH POC ABG pCO2 POC ABG pO2 ABG pO2 ABG Base Excess ABG Hemoglobin Sodium Potassium Chloride Carbon Dioxide BUN Creatinine Glucose POC Glucose 143 H 137 H 164 H Calcium Phosphorus Magnesium AST ALT Alkaline Phosphatase Troponin T C-Reactive Protein Total Protein Albumin Triglycerides HDL Cholesterol Miscellaneous Test Crossmatch 08/20/17 08/20/17 08/20/17 03:20 03:20 04:00 WBC 48.0 H* RBC 2.55 L Hgb 7.6 L Hct 23.4 L MCV MCH RDW 18.4 H Plt Count Lymph % (Auto) [place] % (Auto) [place] # Seg Neutrophils % Seg Neuts % (Manual) 90.0 H Lymphocytes % (Manual) 3.0 L Monocytes % (Manual) Nucleated RBC % Seg Neutrophils # Seg Neutrophils # Man 43.2 H Lymphocytes # (Manual) Monocytes # (Manual) 1.4 H Eosinophils # (Manual) 0.5 H Basophils # (Manual) PT INR POC ABG pH 7.499 H ABG pH POC ABG pCO2 29.1 L POC ABG pO2 ABG pO2 ABG Base Excess ABG Hemoglobin Sodium 135 L Potassium Chloride Carbon Dioxide BUN 28 H Creatinine 4.0 H Glucose 140 H POC Glucose Calcium 8.0 L Phosphorus 1.70 L Magnesium 1.60 L AST ALT Alkaline Phosphatase Troponin T C-Reactive Protein Total Protein Albumin Triglycerides HDL Cholesterol Miscellaneous Test Crossmatch 08/20/17 08/20/17 08/20/17 05:02 12:05 13:12 WBC RBC Hgb Hct MCV MCH RDW Plt Count Lymph % (Auto) [place] % (Auto) [place] # Seg Neutrophils % Seg Neuts % (Manual) Lymphocytes % (Manual) Monocytes % (Manual) Nucleated RBC % Seg Neutrophils # Seg Neutrophils # Man Lymphocytes # (Manual) Monocytes # (Manual) Eosinophils # (Manual) Basophils # (Manual) PT INR POC ABG pH 7.537 H ABG pH POC ABG pCO2 27.9 L POC ABG pO2 79 L ABG pO2 ABG Base Excess ABG Hemoglobin Sodium Potassium Chloride Carbon Dioxide BUN Creatinine Glucose POC Glucose 158 H 203 H Calcium Phosphorus Magnesium AST ALT Alkaline Phosphatase Troponin T C-Reactive Protein Total Protein Albumin Triglycerides HDL Cholesterol Miscellaneous Test Crossmatch 08/20/17 08/21/17 08/21/17 17:13 00:47 03:14 WBC RBC Hgb Hct MCV MCH RDW Plt Count Lymph % (Auto) [place] % (Auto) [place] # Seg Neutrophils % Seg Neuts % (Manual) Lymphocytes % (Manual) Monocytes % (Manual) Nucleated RBC % Seg Neutrophils # Seg Neutrophils # Man Lymphocytes # (Manual) Monocytes # (Manual) Eosinophils # (Manual) Basophils # (Manual) PT INR POC ABG pH 7.481 H ABG pH POC ABG pCO2 29.6 L POC ABG pO2 ABG pO2 ABG Base Excess ABG Hemoglobin Sodium Potassium Chloride Carbon Dioxide BUN Creatinine Glucose POC Glucose 188 H 109 H Calcium Phosphorus Magnesium AST ALT Alkaline Phosphatase Troponin T C-Reactive Protein Total Protein Albumin Triglycerides HDL Cholesterol Miscellaneous Test Crossmatch 08/21/17 08/21/17 08/21/17 05:05 06:50 06:50 WBC 44.7 H* RBC 2.41 L Hgb 7.1 L Hct 22.1 L MCV MCH RDW 18.3 H Plt Count Lymph % (Auto) [place] % (Auto) [place] # Seg Neutrophils % Seg Neuts % (Manual) 89.0 H Lymphocytes % (Manual) 0 L Monocytes % (Manual) Nucleated RBC % 1.0 H Seg Neutrophils # Seg Neutrophils # Man 39.8 H Lymphocytes # (Manual) 0.0 L Monocytes # (Manual) 1.3 H Eosinophils # (Manual) Basophils # (Manual) PT INR POC ABG pH ABG pH POC ABG pCO2 POC ABG pO2 ABG pO2 ABG Base Excess ABG Hemoglobin Sodium 135 L Potassium Chloride Carbon Dioxide BUN 39 H Creatinine 4.4 H Glucose 147 H POC Glucose 166 H Calcium 8.1 L Phosphorus Magnesium AST ALT < 5 L Alkaline Phosphatase 164 H Troponin T C-Reactive Protein Total Protein 4.7 L Albumin 1.4 L Triglycerides HDL Cholesterol Miscellaneous Test Crossmatch 08/21/17 08/21/17 08/21/17 08:00 12:21 17:02 WBC RBC Hgb Hct MCV MCH RDW Plt Count Lymph % (Auto) [place] % (Auto) [place] # Seg Neutrophils % Seg Neuts % (Manual) Lymphocytes % (Manual) Monocytes % (Manual) Nucleated RBC % Seg Neutrophils # Seg Neutrophils # Man Lymphocytes # (Manual) Monocytes # (Manual) Eosinophils # (Manual) Basophils # (Manual) PT INR POC ABG pH ABG pH POC ABG pCO2 POC ABG pO2 ABG pO2 ABG Base Excess ABG Hemoglobin Sodium Potassium Chloride Carbon Dioxide BUN Creatinine Glucose POC Glucose 147 H 135 H Calcium Phosphorus Magnesium AST ALT Alkaline Phosphatase Troponin T C-Reactive Protein Total Protein Albumin Triglycerides HDL Cholesterol Miscellaneous Test Crossmatch See Detail 08/21/17 08/22/17 08/22/17 23:38 03:40 03:40 WBC 42.5 H* RBC 2.88 L Hgb 8.5 L Hct 26.3 L MCV MCH RDW 17.9 H Plt Count Lymph % (Auto) [place] % (Auto) [place] # Seg Neutrophils % Seg Neuts % (Manual) Lymphocytes % (Manual) 5.0 L Monocytes % (Manual) Nucleated RBC % Seg Neutrophils # Seg Neutrophils # Man 19.6 H Lymphocytes # (Manual) Monocytes # (Manual) 2.6 H Eosinophils # (Manual) Basophils # (Manual) PT INR POC ABG pH ABG pH POC ABG pCO2 POC ABG pO2 ABG pO2 ABG Base Excess ABG Hemoglobin Sodium Potassium 3.3 L D Chloride Carbon Dioxide BUN 27 H Creatinine 2.9 H Glucose 144 H POC Glucose 251 H Calcium 8.0 L Phosphorus 2.40 L Magnesium AST ALT Alkaline Phosphatase Troponin T C-Reactive Protein Total Protein Albumin Triglycerides HDL Cholesterol Miscellaneous Test Crossmatch 08/22/17 08/22/17 08/22/17 06:37 08:50 11:25 WBC RBC Hgb Hct MCV MCH RDW Plt Count Lymph % (Auto) [place] % (Auto) [place] # Seg Neutrophils % Seg Neuts % (Manual) Lymphocytes % (Manual) Monocytes % (Manual) Nucleated RBC % Seg Neutrophils # Seg Neutrophils # Man Lymphocytes # (Manual) Monocytes # (Manual) Eosinophils # (Manual) Basophils # (Manual) PT INR POC ABG pH ABG pH POC ABG pCO2 POC ABG pO2 ABG pO2 ABG Base Excess ABG Hemoglobin Sodium Potassium Chloride Carbon Dioxide BUN Creatinine Glucose POC Glucose 152 H 175 H Calcium Phosphorus Magnesium AST ALT Alkaline Phosphatase Troponin T C-Reactive Protein Total Protein Albumin Triglycerides HDL Cholesterol Miscellaneous Test Flexitest 1 H Crossmatch 08/22/17 08/22/17 08/22/17 16:25 17:56 23:03 WBC RBC Hgb Hct MCV MCH RDW Plt Count Lymph % (Auto) [place] % (Auto) [place] # Seg Neutrophils % Seg Neuts % (Manual) Lymphocytes % (Manual) Monocytes % (Manual) Nucleated RBC % Seg Neutrophils # Seg Neutrophils # Man Lymphocytes # (Manual) Monocytes # (Manual) Eosinophils # (Manual) Basophils # (Manual) PT INR POC ABG pH ABG pH POC ABG pCO2 POC ABG pO2 ABG pO2 ABG Base Excess ABG Hemoglobin Sodium Potassium Chloride Carbon Dioxide BUN Creatinine Glucose POC Glucose 232 H 192 H Calcium Phosphorus Magnesium AST ALT Alkaline Phosphatase Troponin T C-Reactive Protein 30.70 H Total Protein Albumin Triglycerides HDL Cholesterol Miscellaneous Test Crossmatch 08/23/17 08/23/17 08/23/17 05:36 08:50 12:14 WBC RBC Hgb Hct MCV MCH RDW Plt Count Lymph % (Auto) [place] % (Auto) [place] # Seg Neutrophils % Seg Neuts % (Manual) Lymphocytes % (Manual) Monocytes % (Manual) Nucleated RBC % Seg Neutrophils # Seg Neutrophils # Man Lymphocytes # (Manual) Monocytes # (Manual) Eosinophils # (Manual) Basophils # (Manual) PT INR POC ABG pH ABG pH POC ABG pCO2 POC ABG pO2 ABG pO2 ABG Base Excess ABG Hemoglobin Sodium Potassium Chloride 107.1 H Carbon Dioxide BUN 49 H Creatinine 3.3 H Glucose 172 H POC Glucose 206 H 238 H Calcium Phosphorus Magnesium 2.40 H AST ALT Alkaline Phosphatase Troponin T C-Reactive Protein Total Protein Albumin Triglycerides HDL Cholesterol Miscellaneous Test Crossmatch 08/23/17 08/23/17 08/24/17 17:21 23:13 04:00 WBC 34.2 H RBC 2.86 L Hgb 8.4 L Hct 25.9 L MCV MCH RDW 17.9 H Plt Count Lymph % (Auto) [place] % (Auto) [place] # Seg Neutrophils % Seg Neuts % (Manual) 85.0 H Lymphocytes % (Manual) 0.5 L Monocytes % (Manual) Nucleated RBC % 1.0 H Seg Neutrophils # Seg Neutrophils # Man 29.1 H Lymphocytes # (Manual) 0.2 L Monocytes # (Manual) 2.4 H Eosinophils # (Manual) Basophils # (Manual) PT INR POC ABG pH ABG pH POC ABG pCO2 POC ABG pO2 ABG pO2 ABG Base Excess ABG Hemoglobin Sodium Potassium Chloride Carbon Dioxide BUN Creatinine Glucose POC Glucose 226 H 183 H Calcium Phosphorus Magnesium AST ALT Alkaline Phosphatase Troponin T C-Reactive Protein Total Protein Albumin Triglycerides HDL Cholesterol Miscellaneous Test Crossmatch 08/24/17 08/24/17 08/24/17 05:06 09:30 12:04 WBC RBC Hgb Hct MCV MCH RDW Plt Count Lymph % (Auto) [place] % (Auto) [place] # Seg Neutrophils % Seg Neuts % (Manual) Lymphocytes % (Manual) Monocytes % (Manual) Nucleated RBC % Seg Neutrophils # Seg Neutrophils # Man Lymphocytes # (Manual) Monocytes # (Manual) Eosinophils # (Manual) Basophils # (Manual) PT INR POC ABG pH ABG pH POC ABG pCO2 POC ABG pO2 ABG pO2 ABG Base Excess ABG Hemoglobin Sodium Potassium Chloride Carbon Dioxide BUN 46 H Creatinine 2.5 H Glucose 176 H POC Glucose 201 H 181 H Calcium Phosphorus Magnesium AST ALT Alkaline Phosphatase Troponin T C-Reactive Protein Total Protein Albumin Triglycerides HDL Cholesterol Miscellaneous Test Crossmatch 08/24/17 08/24/17 08/25/17 18:04 23:05 05:05 WBC RBC Hgb Hct MCV MCH RDW Plt Count Lymph % (Auto) [place] % (Auto) [place] # Seg Neutrophils % Seg Neuts % (Manual) Lymphocytes % (Manual) Monocytes % (Manual) Nucleated RBC % Seg Neutrophils # Seg Neutrophils # Man Lymphocytes # (Manual) Monocytes # (Manual) Eosinophils # (Manual) Basophils # (Manual) PT INR POC ABG pH ABG pH POC ABG pCO2 POC ABG pO2 ABG pO2 ABG Base Excess ABG Hemoglobin Sodium Potassium Chloride Carbon Dioxide BUN Creatinine Glucose POC Glucose 189 H 175 H 190 H Calcium Phosphorus Magnesium AST ALT Alkaline Phosphatase Troponin T C-Reactive Protein Total Protein Albumin Triglycerides HDL Cholesterol Miscellaneous Test Crossmatch 08/25/17 08/25/17 08/26/17 07:02 11:53 05:30 WBC 33.5 H RBC 2.47 L Hgb 7.3 L Hct 23.0 L MCV MCH RDW 21.3 H Plt Count Lymph % (Auto) [place] % (Auto) [place] # Seg Neutrophils % Seg Neuts % (Manual) 92.0 H Lymphocytes % (Manual) 1.0 L Monocytes % (Manual) Nucleated RBC % Seg Neutrophils # Seg Neutrophils # Man 30.8 H Lymphocytes # (Manual) 0.3 L Monocytes # (Manual) Eosinophils # (Manual) Basophils # (Manual) PT INR POC ABG pH ABG pH POC ABG pCO2 POC ABG pO2 ABG pO2 ABG Base Excess ABG Hemoglobin Sodium Potassium Chloride Carbon Dioxide BUN 32 H Creatinine 5.0 H D Glucose 117 H POC Glucose 191 H Calcium 8.0 L Phosphorus Magnesium AST ALT Alkaline Phosphatase Troponin T C-Reactive Protein Total Protein Albumin Triglycerides HDL Cholesterol Miscellaneous Test Crossmatch 08/26/17 08/26/17 08/26/17 05:30 06:44 13:26 WBC RBC Hgb Hct MCV MCH RDW Plt Count Lymph % (Auto) [place] % (Auto) [place] # Seg Neutrophils % Seg Neuts % (Manual) Lymphocytes % (Manual) Monocytes % (Manual) Nucleated RBC % Seg Neutrophils # Seg Neutrophils # Man Lymphocytes # (Manual) Monocytes # (Manual) Eosinophils # (Manual) Basophils # (Manual) PT INR POC ABG pH ABG pH POC ABG pCO2 POC ABG pO2 ABG pO2 ABG Base Excess ABG Hemoglobin Sodium Potassium 5.2 H Chloride Carbon Dioxide BUN 80 H Creatinine 3.4 H Glucose 193 H POC Glucose 232 H 207 H Calcium 8.3 L Phosphorus 6.80 H D Magnesium 2.60 H AST 135 H ALT Alkaline Phosphatase 211 H Troponin T C-Reactive Protein Total Protein 4.8 L Albumin 2.0 L Triglycerides HDL Cholesterol Miscellaneous Test Crossmatch 08/27/17 08/27/17 08/27/17 01:08 06:20 06:20 WBC 35.0 H RBC 2.75 L Hgb 8.4 L Hct 25.1 L MCV MCH RDW 21.8 H Plt Count Lymph % (Auto) [place] % (Auto) [place] # Seg Neutrophils % Seg Neuts % (Manual) Lymphocytes % (Manual) 4.5 L Monocytes % (Manual) Nucleated RBC % Seg Neutrophils # Seg Neutrophils # Man 31.9 H Lymphocytes # (Manual) Monocytes # (Manual) 1.2 H Eosinophils # (Manual) Basophils # (Manual) PT INR POC ABG pH ABG pH POC ABG pCO2 POC ABG pO2 ABG pO2 ABG Base Excess ABG Hemoglobin Sodium Potassium Chloride Carbon Dioxide BUN 61 H Creatinine 2.6 H Glucose 184 H POC Glucose 146 H Calcium Phosphorus 4.90 H D Magnesium AST ALT Alkaline Phosphatase Troponin T C-Reactive Protein Total Protein Albumin Triglycerides HDL Cholesterol Miscellaneous Test Crossmatch 08/27/17 08/27/17 08/27/17 07:01 09:17 12:52 WBC RBC Hgb Hct MCV MCH RDW Plt Count Lymph % (Auto) [place] % (Auto) [place] # Seg Neutrophils % Seg Neuts % (Manual) Lymphocytes % (Manual) Monocytes % (Manual) Nucleated RBC % Seg Neutrophils # Seg Neutrophils # Man Lymphocytes # (Manual) Monocytes # (Manual) Eosinophils # (Manual) Basophils # (Manual) PT INR POC ABG pH ABG pH POC ABG pCO2 POC ABG pO2 ABG pO2 ABG Base Excess ABG Hemoglobin Sodium Potassium Chloride Carbon Dioxide BUN Creatinine Glucose POC Glucose 165 H 198 H 218 H Calcium Phosphorus Magnesium AST ALT Alkaline Phosphatase Troponin T C-Reactive Protein Total Protein Albumin Triglycerides HDL Cholesterol Miscellaneous Test Crossmatch 08/27/17 08/28/17 08/28/17 17:27 02:13 06:46 WBC RBC Hgb Hct MCV MCH RDW Plt Count Lymph % (Auto) [place] % (Auto) [place] # Seg Neutrophils % Seg Neuts % (Manual) Lymphocytes % (Manual) Monocytes % (Manual) Nucleated RBC % Seg Neutrophils # Seg Neutrophils # Man Lymphocytes # (Manual) Monocytes # (Manual) Eosinophils # (Manual) Basophils # (Manual) PT INR POC ABG pH ABG pH POC ABG pCO2 POC ABG pO2 ABG pO2 ABG Base Excess ABG Hemoglobin Sodium Potassium Chloride Carbon Dioxide BUN Creatinine Glucose POC Glucose 151 H 155 H 230 H Calcium Phosphorus Magnesium AST ALT Alkaline Phosphatase Troponin T C-Reactive Protein Total Protein Albumin Triglycerides HDL Cholesterol Miscellaneous Test Crossmatch 08/28/17 08/28/17 08/28/17 06:53 06:53 08:19 WBC 31.1 H RBC 2.26 L Hgb 6.8 L Hct 20.9 L MCV MCH RDW 21.7 H Plt Count Lymph % (Auto) [place] % (Auto) [place] # Seg Neutrophils % Seg Neuts % (Manual) 83.0 H Lymphocytes % (Manual) 4.0 L Monocytes % (Manual) Nucleated RBC % Seg Neutrophils # Seg Neutrophils # Man 25.8 H Lymphocytes # (Manual) Monocytes # (Manual) Eosinophils # (Manual) Basophils # (Manual) PT INR POC ABG pH ABG pH POC ABG pCO2 POC ABG pO2 ABG pO2 ABG Base Excess ABG Hemoglobin Sodium Potassium Chloride Carbon Dioxide BUN 81 H Creatinine 3.4 H Glucose 218 H POC Glucose 239 H Calcium Phosphorus 4.90 H Magnesium AST ALT Alkaline Phosphatase Troponin T C-Reactive Protein Total Protein Albumin Triglycerides HDL Cholesterol Miscellaneous Test Crossmatch 08/28/17 08/28/17 08/28/17 11:56 13:05 13:29 WBC RBC Hgb Hct MCV MCH RDW Plt Count Lymph % (Auto) [place] % (Auto) [place] # Seg Neutrophils % Seg Neuts % (Manual) Lymphocytes % (Manual) Monocytes % (Manual) Nucleated RBC % Seg Neutrophils # Seg Neutrophils # Man Lymphocytes # (Manual) Monocytes # (Manual) Eosinophils # (Manual) Basophils # (Manual) PT 16.7 H INR 1.29 H POC ABG pH ABG pH POC ABG pCO2 POC ABG pO2 338 H ABG pO2 ABG Base Excess ABG Hemoglobin Sodium Potassium Chloride Carbon Dioxide BUN Creatinine Glucose POC Glucose Calcium Phosphorus Magnesium AST ALT Alkaline Phosphatase Troponin T C-Reactive Protein Total Protein Albumin Triglycerides HDL Cholesterol Miscellaneous Test Crossmatch See Detail 08/28/17 08/28/17 08/29/17 16:22 19:20 04:24 WBC RBC Hgb Hct MCV MCH RDW Plt Count Lymph % (Auto) [place] % (Auto) [place] # Seg Neutrophils % Seg Neuts % (Manual) Lymphocytes % (Manual) Monocytes % (Manual) Nucleated RBC % Seg Neutrophils # Seg Neutrophils # Man Lymphocytes # (Manual) Monocytes # (Manual) Eosinophils # (Manual) Basophils # (Manual) PT INR POC ABG pH 7.469 H ABG pH POC ABG pCO2 POC ABG pO2 240 H ABG pO2 ABG Base Excess ABG Hemoglobin Sodium Potassium Chloride Carbon Dioxide BUN Creatinine Glucose POC Glucose 209 H 195 H Calcium Phosphorus Magnesium AST ALT Alkaline Phosphatase Troponin T C-Reactive Protein Total Protein Albumin Triglycerides HDL Cholesterol Miscellaneous Test Crossmatch 08/29/17 08/29/17 08/29/17 04:30 04:30 12:07 WBC 44.9 H* RBC Hgb Hct MCV MCH RDW 23.1 H Plt Count Lymph % (Auto) [place] % (Auto) [place] # Seg Neutrophils % Seg Neuts % (Manual) 38.0 L Lymphocytes % (Manual) 10.0 L Monocytes % (Manual) 10.0 H Nucleated RBC % 6.0 H Seg Neutrophils # Seg Neutrophils # Man 17.1 H Lymphocytes # (Manual) Monocytes # (Manual) 4.5 H Eosinophils # (Manual) Basophils # (Manual) PT INR POC ABG pH ABG pH POC ABG pCO2 POC ABG pO2 ABG pO2 ABG Base Excess ABG Hemoglobin Sodium Potassium Chloride Carbon Dioxide BUN 61 H Creatinine 2.4 H Glucose 226 H POC Glucose 200 H Calcium Phosphorus Magnesium AST ALT Alkaline Phosphatase Troponin T C-Reactive Protein Total Protein Albumin Triglycerides HDL Cholesterol Miscellaneous Test Crossmatch 08/29/17 08/29/17 08/29/17 12:30 12:30 17:23 WBC RBC Hgb Hct MCV MCH RDW Plt Count Lymph % (Auto) [place] % (Auto) [place] # Seg Neutrophils % Seg Neuts % (Manual) Lymphocytes % (Manual) Monocytes % (Manual) Nucleated RBC % Seg Neutrophils # Seg Neutrophils # Man Lymphocytes # (Manual) Monocytes # (Manual) Eosinophils # (Manual) Basophils # (Manual) PT INR POC ABG pH ABG pH POC ABG pCO2 POC ABG pO2 ABG pO2 ABG Base Excess ABG Hemoglobin Sodium Potassium Chloride Carbon Dioxide BUN Creatinine Glucose POC Glucose 270 H Calcium Phosphorus Magnesium AST ALT Alkaline Phosphatase Troponin T C-Reactive Protein 19.10 H Total Protein Albumin Triglycerides HDL Cholesterol Miscellaneous Test Flexitest 1 H Crossmatch 08/30/17 08/30/17 08/30/17 00:10 01:30 03:31 WBC RBC Hgb Hct MCV MCH RDW Plt Count Lymph % (Auto) [place] % (Auto) [place] # Seg Neutrophils % Seg Neuts % (Manual) Lymphocytes % (Manual) Monocytes % (Manual) Nucleated RBC % Seg Neutrophils # Seg Neutrophils # Man Lymphocytes # (Manual) Monocytes # (Manual) Eosinophils # (Manual) Basophils # (Manual) PT INR POC ABG pH 7.168 L 7.335 L ABG pH POC ABG pCO2 72.8 H POC ABG pO2 257 H 117 H ABG pO2 ABG Base Excess ABG Hemoglobin Sodium Potassium Chloride Carbon Dioxide BUN Creatinine Glucose POC Glucose 245 H Calcium Phosphorus Magnesium AST ALT Alkaline Phosphatase Troponin T C-Reactive Protein Total Protein Albumin Triglycerides HDL Cholesterol Miscellaneous Test Crossmatch 08/30/17 08/30/17 08/30/17 05:20 05:20 05:20 WBC 40.9 H* RBC 3.64 L Hgb Hct MCV MCH RDW 24.3 H Plt Count Lymph % (Auto) [place] % (Auto) [place] # Seg Neutrophils % Seg Neuts % (Manual) 80.0 H Lymphocytes % (Manual) 3.0 L Monocytes % (Manual) Nucleated RBC % 1.0 H Seg Neutrophils # Seg Neutrophils # Man 32.7 H Lymphocytes # (Manual) Monocytes # (Manual) Eosinophils # (Manual) Basophils # (Manual) PT INR POC ABG pH ABG pH POC ABG pCO2 POC ABG pO2 ABG pO2 ABG Base Excess ABG Hemoglobin Sodium Potassium Chloride Carbon Dioxide BUN 83 H Creatinine 2.9 H Glucose 334 H POC Glucose 309 H Calcium Phosphorus Magnesium AST ALT Alkaline Phosphatase Troponin T C-Reactive Protein Total Protein Albumin Triglycerides HDL Cholesterol Miscellaneous Test Crossmatch 08/30/17 08/30/17 08/31/17 12:18 17:36 00:17 WBC RBC Hgb Hct MCV MCH RDW Plt Count Lymph % (Auto) [place] % (Auto) [place] # Seg Neutrophils % Seg Neuts % (Manual) Lymphocytes % (Manual) Monocytes % (Manual) Nucleated RBC % Seg Neutrophils # Seg Neutrophils # Man Lymphocytes # (Manual) Monocytes # (Manual) Eosinophils # (Manual) Basophils # (Manual) PT INR POC ABG pH ABG pH POC ABG pCO2 POC ABG pO2 ABG pO2 ABG Base Excess ABG Hemoglobin Sodium Potassium Chloride Carbon Dioxide BUN Creatinine Glucose POC Glucose 273 H 293 H 360 H Calcium Phosphorus Magnesium AST ALT Alkaline Phosphatase Troponin T C-Reactive Protein Total Protein Albumin Triglycerides HDL Cholesterol Miscellaneous Test Crossmatch 08/31/17 08/31/17 08/31/17 05:30 05:30 05:32 WBC 29.9 H RBC 2.89 L Hgb 8.2 L Hct 24.7 L D MCV MCH RDW 24.4 H Plt Count Lymph % (Auto) [place] % (Auto) [place] # Seg Neutrophils % Seg Neuts % (Manual) Lymphocytes % (Manual) 2.0 L Monocytes % (Manual) Nucleated RBC % 2.0 H Seg Neutrophils # Seg Neutrophils # Man 18.5 H Lymphocytes # (Manual) 0.6 L Monocytes # (Manual) 0.9 H Eosinophils # (Manual) Basophils # (Manual) PT INR POC ABG pH ABG pH POC ABG pCO2 POC ABG pO2 ABG pO2 ABG Base Excess ABG Hemoglobin Sodium Potassium Chloride Carbon Dioxide BUN 62 H Creatinine 2.2 H Glucose 245 H POC Glucose 257 H Calcium Phosphorus 2.10 L D Magnesium 1.60 L AST ALT Alkaline Phosphatase Troponin T C-Reactive Protein Total Protein Albumin Triglycerides HDL Cholesterol Miscellaneous Test Crossmatch 08/31/17 08/31/17 08/31/17 11:56 12:05 18:14 WBC 32.5 H RBC 3.19 L Hgb 8.8 L Hct 27.9 L MCV MCH RDW 24.9 H Plt Count Lymph % (Auto) [place] % (Auto) [place] # Seg Neutrophils % Seg Neuts % (Manual) Lymphocytes % (Manual) 1.0 L Monocytes % (Manual) 12.0 H Nucleated RBC % 1.0 H Seg Neutrophils # Seg Neutrophils # Man 13.3 H Lymphocytes # (Manual) 0.3 L Monocytes # (Manual) 3.9 H Eosinophils # (Manual) Basophils # (Manual) PT INR POC ABG pH ABG pH POC ABG pCO2 POC ABG pO2 ABG pO2 ABG Base Excess ABG Hemoglobin Sodium Potassium Chloride Carbon Dioxide BUN Creatinine Glucose POC Glucose 245 H Calcium Phosphorus Magnesium AST ALT Alkaline Phosphatase Troponin T C-Reactive Protein Total Protein Albumin Triglycerides HDL Cholesterol Miscellaneous Test Crossmatch See Detail 08/31/17 08/31/17 08/31/17 18:14 18:15 23:53 WBC RBC Hgb Hct MCV MCH RDW Plt Count Lymph % (Auto) [place] % (Auto) [place] # Seg Neutrophils % Seg Neuts % (Manual) Lymphocytes % (Manual) Monocytes % (Manual) Nucleated RBC % Seg Neutrophils # Seg Neutrophils # Man Lymphocytes # (Manual) Monocytes # (Manual) Eosinophils # (Manual) Basophils # (Manual) PT 15.1 H INR POC ABG pH ABG pH POC ABG pCO2 POC ABG pO2 ABG pO2 ABG Base Excess ABG Hemoglobin Sodium 136 L Potassium Chloride Carbon Dioxide 21 L BUN 69 H Creatinine 2.3 H Glucose 227 H POC Glucose 301 H Calcium Phosphorus 2.40 L Magnesium 1.50 L AST 143 H ALT 114 H Alkaline Phosphatase 267 H Troponin T C-Reactive Protein Total Protein 4.1 L Albumin 1.8 L Triglycerides HDL Cholesterol Miscellaneous Test Crossmatch 09/01/17 09/01/17 09/01/17 05:00 05:00 05:20 WBC 33.9 H RBC 2.85 L Hgb 7.8 L Hct 24.8 L MCV MCH 27 L RDW 23.9 H Plt Count Lymph % (Auto) [place] % (Auto) [place] # Seg Neutrophils % Seg Neuts % (Manual) Lymphocytes % (Manual) 5.0 L Monocytes % (Manual) Nucleated RBC % Seg Neutrophils # Seg Neutrophils # Man 23.1 H Lymphocytes # (Manual) Monocytes # (Manual) Eosinophils # (Manual) Basophils # (Manual) PT INR POC ABG pH ABG pH 7.348 L POC ABG pCO2 POC ABG pO2 ABG pO2 70.2 L ABG Base Excess ABG Hemoglobin 7.5 L Sodium Potassium Chloride Carbon Dioxide BUN 51 H Creatinine 1.8 H Glucose 195 H POC Glucose Calcium Phosphorus 1.70 L D Magnesium 1.60 L AST 80 H ALT 82 H Alkaline Phosphatase 243 H Troponin T C-Reactive Protein Total Protein 4.2 L Albumin 1.7 L Triglycerides HDL Cholesterol Miscellaneous Test Crossmatch 09/01/17 09/01/17 09/01/17 05:47 11:37 17:39 WBC RBC Hgb Hct MCV MCH RDW Plt Count Lymph % (Auto) [place] % (Auto) [place] # Seg Neutrophils % Seg Neuts % (Manual) Lymphocytes % (Manual) Monocytes % (Manual) Nucleated RBC % Seg Neutrophils # Seg Neutrophils # Man Lymphocytes # (Manual) Monocytes # (Manual) Eosinophils # (Manual) Basophils # (Manual) PT INR POC ABG pH ABG pH POC ABG pCO2 POC ABG pO2 ABG pO2 ABG Base Excess ABG Hemoglobin Sodium Potassium Chloride Carbon Dioxide BUN Creatinine Glucose POC Glucose 230 H 254 H 297 H Calcium Phosphorus Magnesium AST ALT Alkaline Phosphatase Troponin T C-Reactive Protein Total Protein Albumin Triglycerides HDL Cholesterol Miscellaneous Test Crossmatch 09/01/17 09/02/17 09/02/17 23:14 04:55 05:31 WBC RBC Hgb Hct MCV MCH RDW Plt Count Lymph % (Auto) [place] % (Auto) [place] # Seg Neutrophils % Seg Neuts % (Manual) Lymphocytes % (Manual) Monocytes % (Manual) Nucleated RBC % Seg Neutrophils # Seg Neutrophils # Man Lymphocytes # (Manual) Monocytes # (Manual) Eosinophils # (Manual) Basophils # (Manual) PT INR POC ABG pH ABG pH POC ABG pCO2 POC ABG pO2 ABG pO2 124.8 H ABG Base Excess -2.9 L ABG Hemoglobin 5.8 L Sodium Potassium Chloride Carbon Dioxide BUN Creatinine Glucose POC Glucose 291 H 245 H Calcium Phosphorus Magnesium AST ALT Alkaline Phosphatase Troponin T C-Reactive Protein Total Protein Albumin Triglycerides HDL Cholesterol Miscellaneous Test Crossmatch 09/02/17 09/02/17 09/02/17 06:10 11:58 15:37 WBC RBC Hgb Hct MCV MCH RDW Plt Count Lymph % (Auto) [place] % (Auto) [place] # Seg Neutrophils % Seg Neuts % (Manual) Lymphocytes % (Manual) Monocytes % (Manual) Nucleated RBC % Seg Neutrophils # Seg Neutrophils # Man Lymphocytes # (Manual) Monocytes # (Manual) Eosinophils # (Manual) Basophils # (Manual) PT INR POC ABG pH ABG pH POC ABG pCO2 POC ABG pO2 ABG pO2 ABG Base Excess ABG Hemoglobin Sodium Potassium Chloride Carbon Dioxide BUN 68 H Creatinine 2.2 H Glucose 369 H POC Glucose 333 H 314 H Calcium 8.2 L Phosphorus Magnesium AST ALT Alkaline Phosphatase Troponin T C-Reactive Protein Total Protein Albumin Triglycerides HDL Cholesterol Miscellaneous Test Crossmatch 09/02/17 09/03/17 09/03/17 23:50 04:00 05:00 WBC 41.5 H* RBC 2.46 L Hgb 6.9 L Hct 21.3 L MCV MCH RDW 24.9 H Plt Count Lymph % (Auto) [place] % (Auto) [place] # Seg Neutrophils % Seg Neuts % (Manual) Lymphocytes % (Manual) 3.0 L Monocytes % (Manual) 9.5 H Nucleated RBC % 1.5 H Seg Neutrophils # Seg Neutrophils # Man 28.8 H Lymphocytes # (Manual) Monocytes # (Manual) 3.9 H Eosinophils # (Manual) Basophils # (Manual) PT INR POC ABG pH ABG pH POC ABG pCO2 POC ABG pO2 ABG pO2 ABG Base Excess ABG Hemoglobin Sodium Potassium Chloride Carbon Dioxide BUN 59 H Creatinine 1.9 H Glucose 231 H POC Glucose 240 H Calcium 8.0 L Phosphorus Magnesium AST ALT Alkaline Phosphatase 265 H Troponin T C-Reactive Protein Total Protein 4.4 L Albumin 1.7 L Triglycerides 180 H HDL Cholesterol Miscellaneous Test Crossmatch 10/09/1009/03/17 09/03/17 05:32 11:52 16:55 WBC RBC Hgb Hct MCV MCH RDW Plt Count Lymph % (Auto) [place] % (Auto) [place] # Seg Neutrophils % Seg Neuts % (Manual) Lymphocytes % (Manual) Monocytes % (Manual) Nucleated RBC % Seg Neutrophils # Seg Neutrophils # Man Lymphocytes # (Manual) Monocytes # (Manual) Eosinophils # (Manual) Basophils # (Manual) PT INR POC ABG pH ABG pH POC ABG pCO2 POC ABG pO2 ABG pO2 ABG Base Excess ABG Hemoglobin Sodium Potassium Chloride Carbon Dioxide BUN Creatinine Glucose POC Glucose 188 H 285 H Calcium Phosphorus Magnesium AST ALT Alkaline Phosphatase Troponin T C-Reactive Protein Total Protein Albumin Triglycerides HDL Cholesterol Miscellaneous Test Crossmatch See Detail 09/03/17 09/03/17 09/03/17 17:44 23:56 Unknown WBC RBC Hgb Hct MCV MCH RDW Plt Count Lymph % (Auto) [place] % (Auto) [place] # Seg Neutrophils % Seg Neuts % (Manual) Lymphocytes % (Manual) Monocytes % (Manual) Nucleated RBC % Seg Neutrophils # Seg Neutrophils # Man Lymphocytes # (Manual) Monocytes # (Manual) Eosinophils # (Manual) Basophils # (Manual) PT INR POC ABG pH ABG pH POC ABG pCO2 POC ABG pO2 ABG pO2 133.4 H ABG Base Excess ABG Hemoglobin 5.8 L Sodium Potassium Chloride Carbon Dioxide BUN Creatinine Glucose POC Glucose 217 H 193 H Calcium Phosphorus Magnesium AST ALT Alkaline Phosphatase Troponin T C-Reactive Protein Total Protein Albumin Triglycerides HDL Cholesterol Miscellaneous Test Crossmatch 09/04/17 09/04/17 09/04/17 03:47 04:32 04:32 WBC 44.7 H* RBC 3.12 L Hgb 8.7 L Hct 26.7 L MCV MCH RDW 23.5 H Plt Count Lymph % (Auto) [place] % (Auto) [place] # Seg Neutrophils % Seg Neuts % (Manual) Lymphocytes % (Manual) 4.0 L Monocytes % (Manual) Nucleated RBC % 2.0 H Seg Neutrophils # Seg Neutrophils # Man 30.8 H Lymphocytes # (Manual) Monocytes # (Manual) 2.2 H Eosinophils # (Manual) Basophils # (Manual) PT INR POC ABG pH ABG pH POC ABG pCO2 POC ABG pO2 ABG pO2 135.0 H ABG Base Excess -2.5 L ABG Hemoglobin 7.9 L Sodium 136 L Potassium 5.2 H D Chloride 94.2 L Carbon Dioxide BUN 71 H Creatinine 2.3 H Glucose 235 H POC Glucose Calcium 8.3 L Phosphorus Magnesium AST ALT Alkaline Phosphatase Troponin T C-Reactive Protein Total Protein Albumin Triglycerides HDL Cholesterol Miscellaneous Test Crossmatch 09/04/17 09/04/17 09/04/17 05:48 10:43 12:38 WBC RBC Hgb Hct MCV MCH RDW Plt Count Lymph % (Auto) [place] % (Auto) [place] # Seg Neutrophils % Seg Neuts % (Manual) Lymphocytes % (Manual) Monocytes % (Manual) Nucleated RBC % Seg Neutrophils # Seg Neutrophils # Man Lymphocytes # (Manual) Monocytes # (Manual) Eosinophils # (Manual) Basophils # (Manual) PT INR POC ABG pH ABG pH POC ABG pCO2 POC ABG pO2 ABG pO2 ABG Base Excess ABG Hemoglobin Sodium Potassium Chloride Carbon Dioxide BUN Creatinine Glucose POC Glucose 329 H 444 H Calcium Phosphorus Magnesium AST ALT Alkaline Phosphatase Troponin T C-Reactive Protein Total Protein Albumin Triglycerides HDL Cholesterol Miscellaneous Test Flexitest 1 H Crossmatch 09/04/17 09/05/17 09/05/17 17:30 00:15 03:55 WBC 35.3 H RBC 2.87 L Hgb 8.1 L Hct 24.6 L MCV MCH RDW 23.3 H Plt Count Lymph % (Auto) [place] % (Auto) [place] # Seg Neutrophils % Seg Neuts % (Manual) 89.5 H Lymphocytes % (Manual) 3.0 L Monocytes % (Manual) Nucleated RBC % 2.5 H Seg Neutrophils # Seg Neutrophils # Man 31.6 H Lymphocytes # (Manual) 1.1 L Monocytes # (Manual) Eosinophils # (Manual) Basophils # (Manual) PT INR POC ABG pH ABG pH POC ABG pCO2 POC ABG pO2 ABG pO2 ABG Base Excess ABG Hemoglobin Sodium Potassium Chloride Carbon Dioxide BUN Creatinine Glucose POC Glucose 331 H 362 H Calcium Phosphorus Magnesium AST ALT Alkaline Phosphatase Troponin T C-Reactive Protein Total Protein Albumin Triglycerides HDL Cholesterol Miscellaneous Test Crossmatch 09/05/17 09/05/17 09/05/17 03:55 12:12 14:32 WBC RBC Hgb Hct MCV MCH RDW Plt Count Lymph % (Auto) [place] % (Auto) [place] # Seg Neutrophils % Seg Neuts % (Manual) Lymphocytes % (Manual) Monocytes % (Manual) Nucleated RBC % Seg Neutrophils # Seg Neutrophils # Man Lymphocytes # (Manual) Monocytes # (Manual) Eosinophils # (Manual) Basophils # (Manual) PT INR POC ABG pH ABG pH POC ABG pCO2 POC ABG pO2 ABG pO2 ABG Base Excess ABG Hemoglobin Sodium 136 L Potassium Chloride 94.7 L Carbon Dioxide BUN 55 H Creatinine 1.8 H Glucose 193 H POC Glucose 344 H 265 H Calcium 8.1 L Phosphorus Magnesium AST ALT Alkaline Phosphatase Troponin T C-Reactive Protein Total Protein Albumin Triglycerides HDL Cholesterol Miscellaneous Test Crossmatch 09/05/17 09/05/17 09/05/17 15:32 16:41 17:28 WBC RBC Hgb Hct MCV MCH RDW Plt Count Lymph % (Auto) [place] % (Auto) [place] # Seg Neutrophils % Seg Neuts % (Manual) Lymphocytes % (Manual) Monocytes % (Manual) Nucleated RBC % Seg Neutrophils # Seg Neutrophils # Man Lymphocytes # (Manual) Monocytes # (Manual) Eosinophils # (Manual) Basophils # (Manual) PT INR POC ABG pH ABG pH POC ABG pCO2 POC ABG pO2 ABG pO2 ABG Base Excess ABG Hemoglobin Sodium Potassium Chloride Carbon Dioxide BUN Creatinine Glucose POC Glucose 145 H 188 H 246 H Calcium Phosphorus Magnesium AST ALT Alkaline Phosphatase Troponin T C-Reactive Protein Total Protein Albumin Triglycerides HDL Cholesterol Miscellaneous Test Crossmatch 09/05/17 09/05/17 09/05/17 18:38 20:10 21:06 WBC RBC Hgb Hct MCV MCH RDW Plt Count Lymph % (Auto) [place] % (Auto) [place] # Seg Neutrophils % Seg Neuts % (Manual) Lymphocytes % (Manual) Monocytes % (Manual) Nucleated RBC % Seg Neutrophils # Seg Neutrophils # Man Lymphocytes # (Manual) Monocytes # (Manual) Eosinophils # (Manual) Basophils # (Manual) PT INR POC ABG pH ABG pH POC ABG pCO2 POC ABG pO2 ABG pO2 ABG Base Excess ABG Hemoglobin Sodium Potassium Chloride Carbon Dioxide BUN Creatinine Glucose POC Glucose 271 H 165 H 134 H Calcium Phosphorus Magnesium AST ALT Alkaline Phosphatase Troponin T C-Reactive Protein Total Protein Albumin Triglycerides HDL Cholesterol Miscellaneous Test Crossmatch 09/05/17 09/06/17 09/06/17 23:07 00:10 01:08 WBC RBC Hgb Hct MCV MCH RDW Plt Count Lymph % (Auto) [place] % (Auto) [place] # Seg Neutrophils % Seg Neuts % (Manual) Lymphocytes % (Manual) Monocytes % (Manual) Nucleated RBC % Seg Neutrophils # Seg Neutrophils # Man Lymphocytes # (Manual) Monocytes # (Manual) Eosinophils # (Manual) Basophils # (Manual) PT INR POC ABG pH ABG pH POC ABG pCO2 POC ABG pO2 ABG pO2 ABG Base Excess ABG Hemoglobin Sodium Potassium Chloride Carbon Dioxide BUN Creatinine Glucose POC Glucose 135 H 147 H 133 H Calcium Phosphorus Magnesium AST ALT Alkaline Phosphatase Troponin T C-Reactive Protein Total Protein Albumin Triglycerides HDL Cholesterol Miscellaneous Test Crossmatch 09/06/17 09/06/17 09/06/17 02:01 03:08 05:30 WBC 38.6 H RBC 2.95 L Hgb 8.3 L Hct 25.3 L MCV MCH RDW 22.2 H Plt Count Lymph % (Auto) [place] % (Auto) [place] # Seg Neutrophils % Seg Neuts % (Manual) Lymphocytes % (Manual) 2.0 L Monocytes % (Manual) Nucleated RBC % 5.0 H Seg Neutrophils # Seg Neutrophils # Man 25.9 H Lymphocytes # (Manual) 0.8 L Monocytes # (Manual) 1.9 H Eosinophils # (Manual) Basophils # (Manual) PT INR POC ABG pH ABG pH POC ABG pCO2 POC ABG pO2 ABG pO2 ABG Base Excess ABG Hemoglobin Sodium Potassium Chloride Carbon Dioxide BUN Creatinine Glucose POC Glucose 146 H 135 H Calcium Phosphorus Magnesium AST ALT Alkaline Phosphatase Troponin T C-Reactive Protein Total Protein Albumin Triglycerides HDL Cholesterol Miscellaneous Test Crossmatch 09/06/17 09/06/17 05:30 05:48 WBC RBC Hgb Hct MCV MCH RDW Plt Count Lymph % (Auto) [place] % (Auto) [place] # Seg Neutrophils % Seg Neuts % (Manual) Lymphocytes % (Manual) Monocytes % (Manual) Nucleated RBC % Seg Neutrophils # Seg Neutrophils # Man Lymphocytes # (Manual) Monocytes # (Manual) Eosinophils # (Manual) Basophils # (Manual) PT INR POC ABG pH ABG pH POC ABG pCO2 POC ABG pO2 ABG pO2 ABG Base Excess ABG Hemoglobin Sodium 135 L Potassium Chloride 93.5 L Carbon Dioxide BUN 82 H Creatinine 2.3 H Glucose 148 H POC Glucose 152 H Calcium Phosphorus Magnesium AST ALT Alkaline Phosphatase Troponin T C-Reactive Protein Total Protein Albumin Triglycerides HDL Cholesterol Miscellaneous Test Crossmatch
[2017-09-06] MEDS ORDERED: NACL 0.9% 100 ML IV PRN ×2 (10:18→10:24)
--- NOTE | 2017-09-06 10:27 | Progress Note ---
Assessment and Plan Assessment and plan: 62 YO Female with MO, ESRD-PD (with PD cath in place )(Daily), HTN, OA, Ischemic Cardiomyopathy currently on Milrinone, Chronic Pain who came to ED with lightheaded and syncope, she c/o abdomnal pain x 2 days, was found to have hypotension, septic shock and intra-abdominal abscess. Sepsis secondary to peritonitis, Intra abdominal abscess and Bowel obstruction - Patient had completed 14 days of meropenem and diflucan - continue abx -ID on board - she has had the following procedures 08/31: Ex lap with abdominal wash out and closure 08/17: Ex lap with G tube placement, EGD, abdominal wash out and removal of PD Cath -taper steroids Acute hypoxic respiratory failure on MV > 96 hours continue ventilator, planned for tracheostomy, has failed extubation multiple times Acute rectal bleeding with severe acute blood loss anemia -EGD showed small gastric ulcer -sp multiple transfusions -- GI consult appreciated - Patient had CTA of abdomen and pelvis no active bleeding, CT Abdomen repeated 09/06, no acute findings - transfuse to keep Hg above 8 given septic shock melana, GIB likely from PUD -start PPI drip, keep NPO, monitor Hg and transfuse to keep above 8 -wean off steroids. ESRD -continue HD per renal per femoral HD cath -needs perm cath when improved Septic shock. - continue IV pressors continue abx, ID input appreciated Ulcerative esophagitis/small gastric ulcer on EGD - IV pantoprazole Severe Protein calorie malnutrition - Continue with TPN Sacral and lower extremity wound, POA - continue wound care NSVT likely due to levophed, wean as tolerated cardiology input appreciated --DVT prophylaxis; SCDs - D/C Heparin because of GI bleed Plan of care discussed with the patient's family at bedside Disposition - continue ICU care Prognosis: guarded The high probability of a clinically significant, sudden or life threatening deterioration of the [cv, pulmonary and GI] system(s) required my full and direct attention, intervention and personal management. The aggregate critical care time was [33] minutes. This time is in addition to time spent performing reported procedures but includes the following: [] Data Review and interpretation [] Patient assessment and monitoring of vital signs [] Documentation [] Medication orders and management History Interval history: Per the patient's nurse, patient had a large melanotic stool. Hospitalist Physical - Physical exam Narrative exam: General.: Obese HEENT: Moist mucous membranes, extraocular muscles intact, no lymphadenopathy Neck: supple Cardiac: S1-S2 heard Lungs: clear to auscultation bilaterally Abdomen: soft, bowel sounds normal, other (obese, soft, dressing not removed) Extremities: no edema clubbing or cyanosis Skin: no rash or lesions Neurologic: Intubated, obeys commands, arousable - Constitutional Vitals: Temp Pulse Resp BP Pulse Ox 99.5 F 89 20 103/51 100 09/06/17 07:50 09/06/17 09:06 09/06/17 09:06 09/06/17 08:51 09/06/17 08:51 General appearance: Present: well-nourished Results - Labs CBC & Chem 7: 09/06/17 13:40 09/06/17 05:30 Labs: Laboratory Last Values WBC 38.6 K/mm3 (4.5-11.0) H 09/06/17 05:30 RBC 2.95 M/mm3 (3.65-5.03) L 09/06/17 05:30 Hgb 8.3 gm/dl (10.1-14.3) L 09/06/17 05:30 Hct 25.3 % (30.3-42.9) L 09/06/17 05:30 MCV 86 fl (79-97) 09/06/17 05:30 MCH 28 pg (28-32) 09/06/17 05:30 MCHC 33 % (30-34) 09/06/17 05:30 RDW 22.2 % (13.2-15.2) H 09/06/17 05:30 Plt Count 250 K/mm3 (140-440) 09/06/17 05:30 Lymph % (Auto) Heading Repairer 08/19/17 07:37 [place] % (Auto) Heading Repairer 08/19/17 07:37 Eos % (Auto) Heading Repairer 08/19/17 07:37 Baso % (Auto) Heading Repairer 08/19/17 07:37 Lymph # Heading Repairer 08/19/17 07:37 [place] # Heading Repairer 08/19/17 07:37 Eos # Heading Repairer 08/19/17 07:37 Baso # Heading Repairer 08/19/17 07:37 Add Manual Diff Complete 09/06/17 05:30 Total Counted 100 09/06/17 05:30 Seg Neutrophils % Heading Repairer 09/06/17 05:30 Seg Neuts % (Manual) 67.0 % (40.0-70.0) 09/06/17 05:30 Band Neutrophils % 22.0 % 09/06/17 05:30 Lymphocytes % (Manual) 2.0 % (13.4-35.0) L 09/06/17 05:30 Reactive Lymphs % (Man) 0 % 09/06/17 05:30 Monocytes % (Manual) 5.0 % (0.0-7.3) 09/06/17 05:30 Eosinophils % (Manual) 0 % (0.0-4.3) 09/06/17 05:30 Basophils % (Manual) 0 % (0.0-1.8) 09/06/17 05:30 Metamyelocytes % 4.0 % 09/06/17 05:30 Myelocytes % 0 % 09/06/17 05:30 Promyelocytes % 0 % 09/06/17 05:30 Blast Cells % 0 % 09/06/17 05:30 Nucleated RBC % 5.0 % (0.0-0.9) H 09/06/17 05:30 Seg Neutrophils # Heading Repairer 08/19/17 07:37 Seg Neutrophils # Man 25.9 K/mm3 (1.8-7.7) H 09/06/17 05:30 Band Neutrophils # 8.5 K/mm3 09/06/17 05:30 Lymphocytes # (Manual) 0.8 K/mm3 (1.2-5.4) L 09/06/17 05:30 Abs React Lymphs (Man) 0.0 K/mm3 09/06/17 05:30 Monocytes # (Manual) 1.9 K/mm3 (0.0-0.8) H 09/06/17 05:30 Eosinophils # (Manual) 0.0 K/mm3 (0.0-0.4) 09/06/17 05:30 Basophils # (Manual) 0.0 K/mm3 (0.0-0.1) 09/06/17 05:30 Metamyelocytes # 1.5 K/mm3 09/06/17 05:30 Myelocytes # 0.0 K/mm3 09/06/17 05:30 Promyelocytes # 0.0 K/mm3 09/06/17 05:30 Blast Cells # 0.0 K/mm3 09/06/17 05:30 Pathologist Review Not Reportable 08/30/17 05:20 WBC Morphology Not Reportable 09/06/17 05:30 Hypersegmented Neuts Not Reportable 09/06/17 05:30 Hyposegmented Neuts Not Reportable 09/06/17 05:30 Hypogranular Neuts Not Reportable 09/06/17 05:30 Smudge Cells Not Reportable 09/06/17 05:30 Toxic Granulation Not Reportable 09/06/17 05:30 Toxic Vacuolation Not Reportable 09/06/17 05:30 Dohle Bodies Not Reportable 09/06/17 05:30 Pelger-Huet Anomaly Not Reportable 09/06/17 05:30 Ariel Rods Not Reportable 09/06/17 05:30 Platelet Estimate Consistent w auto 09/06/17 05:30 Clumped Platelets Not Reportable 09/06/17 05:30 Plt Clumps, EDTA Not Reportable 09/06/17 05:30 Large Platelets Not Reportable 09/06/17 05:30 Giant Platelets Not Reportable 09/06/17 05:30 Platelet Satelliting Not Reportable 09/06/17 05:30 Plt Morphology Comment Not Reportable 09/06/17 05:30 RBC Morphology Not Reportable 09/06/17 05:30 Dimorphic RBCs Not Reportable 09/06/17 05:30 Polychromasia Rare 09/06/17 05:30 Hypochromasia Not Reportable 09/06/17 05:30 Poikilocytosis Not Reportable 09/06/17 05:30 Anisocytosis 2+ 09/06/17 05:30 Microcytosis Not Reportable 09/06/17 05:30 Macrocytosis Not Reportable 09/06/17 05:30 Spherocytes Not Reportable 09/06/17 05:30 Pappenheimer Bodies Not Reportable 09/06/17 05:30 Sickle Cells Not Reportable 09/06/17 05:30 Target Cells Not Reportable 09/06/17 05:30 Tear Drop Cells Not Reportable 09/06/17 05:30 Ovalocytes Not Reportable 09/06/17 05:30 Stomatocytes Rare 09/01/17 05:00 Helmet Cells Not Reportable 09/06/17 05:30 Vera-Rutledge Bodies Not Reportable 09/06/17 05:30 Mertzon Rings Not Reportable 09/06/17 05:30 Yusuf Cells Not Reportable 09/06/17 05:30 Bite Cells Not Reportable 09/06/17 05:30 Crenated Cell Not Reportable 09/06/17 05:30 Elliptocytes Not Reportable 09/06/17 05:30 Acanthocytes (Spur) Not Reportable 09/06/17 05:30 Rouleaux Not Reportable 09/06/17 05:30 Hemoglobin C Crystals Not Reportable 09/06/17 05:30 Schistocytes Not Reportable 09/06/17 05:30 Malaria parasites Not Reportable 09/06/17 05:30 Jovanni Bodies Not Reportable 09/06/17 05:30 Hem Pathologist Commnt No 09/06/17 05:30 PT 15.1 Sec. (12.2-14.9) H 08/31/17 18:15 INR 1.13 (0.87-1.13) 08/31/17 18:15 APTT 28.7 Sec. (24.2-36.6) 08/31/17 18:15 POC ABG pH 7.335 (7.35-7.45) L 08/30/17 03:31 ABG pH 7.415 pH Units (7.350-7.450) 09/04/17 03:47 POC ABG pCO2 44.1 (35-45) 08/30/17 03:31 ABG pCO2 34.6 mm Hg 09/04/17 03:47 POC ABG pO2 117 (80-105) H 08/30/17 03:31 ABG pO2 135.0 mm Hg (80.0-90.0) H 09/04/17 03:47 POC ABG HCO3 23.5 08/30/17 03:31 ABG HCO3 21.7 mmol/L (20.0-26.0) 09/04/17 03:47 POC ABG Total CO2 25 08/30/17 03:31 POC ABG O2 Sat 98 08/30/17 03:31 ABG O2 Saturation 98.7 % (95.0-99.0) 09/04/17 03:47 ABG O2 Content 11.1 (0.0-44) 09/04/17 03:47 POC ABG Base Excess -2 08/30/17 03:31 ABG Base Excess -2.5 mmol/L (-2.0-3.0) L 09/04/17 03:47 ABG Hemoglobin 7.9 gm/dl (12.0-16.0) L 09/04/17 03:47 ABG Carboxyhemoglobin 1.9 % (0.0-5.0) 09/04/17 03:47 ABG Methemoglobin 0.5 % (0.0-1.5) 09/04/17 03:47 VBG pH 7.462 (7.320-7.420) H 08/08/17 14:52 Oxyhemoglobin 96.3 % (95.0-99.0) 09/04/17 03:47 FiO2 40 % 09/04/17 03:47 Sodium 135 mmol/L (137-145) L 09/06/17 05:30 Potassium 4.2 mmol/L (3.6-5.0) 09/06/17 05:30 Chloride 93.5 mmol/L (98-107) L 09/06/17 05:30 Carbon Dioxide 24 mmol/L (22-30) 09/06/17 05:30 Anion Gap 22 mmol/L 09/06/17 05:30 BUN 82 mg/dL (7-17) H 09/06/17 05:30 Creatinine 2.3 mg/dL (0.7-1.2) H 09/06/17 05:30 Estimated GFR 26 ml/min 09/06/17 05:30 BUN/Creatinine Ratio 36 % 09/06/17 05:30 Glucose 148 mg/dL (65-100) H 09/06/17 05:30 POC Glucose 152 (70-105) H 09/06/17 05:48 Lactic Acid 1.60 mmol/L (0.7-2.0) 08/17/17 11:20 Calcium 8.4 mg/dL (8.4-10.2) 09/06/17 05:30 Phosphorus 4.50 mg/dL (2.5-4.5) D 09/06/17 05:30 Magnesium 1.90 mg/dL (1.7-2.3) 09/05/17 03:55 Total Bilirubin 0.90 mg/dL (0.1-1.2) 09/03/17 04:00 Direct Bilirubin 0.2 mg/dL (0-0.2) 08/08/17 14:11 Indirect Bilirubin 0.3 mg/dL 08/08/17 14:11 AST 40 units/L (5-40) 09/03/17 04:00 ALT 34 units/L (7-56) 09/03/17 04:00 Alkaline Phosphatase 265 units/L (35-129) H 09/03/17 04:00 Ammonia 25.0 umol/L (25-60) 08/08/17 14:52 Troponin T 0.132 ng/mL (0.00-0.029) H* 08/09/17 13:25 C-Reactive Protein 2.80 mg/dL (0.00-1.30) H 09/06/17 05:30 NT-Pro-B Natriuret Pep 6156 pg/mL (0-900) H 08/08/17 14:11 Total Protein 4.4 g/dL (6.3-8.2) L 09/03/17 04:00 Albumin 1.7 g/dL (3.9-5) L 09/03/17 04:00 Albumin/Globulin Ratio 0.6 % 09/03/17 04:00 Triglycerides 180 mg/dL (2-149) H 09/03/17 04:00 Cholesterol 91 mg/dL (50-199) 08/08/17 21:23 LDL Cholesterol Direct 53 mg/dL (50-130) 08/08/17 21:23 HDL Cholesterol 26 mg/dL (40-59) L 08/08/17 21:23 Cholesterol/HDL Ratio 3.50 % 08/08/17 21:23 Amylase 45 units/L (27-131) 08/16/17 09:50 Lipase 34 units/L (13-60) 08/16/17 09:50 TSH 6.580 mlU/mL (0.270-4.200) H 08/08/17 14:22 Free T4 1.46 ng/dL (0.76-1.46) 08/08/17 14:22 Total Cortisol 30.1 mcg/dL () 08/13/17 06:14 Urine Color Yellow (Yellow) 08/08/17 20:15 Urine Turbidity Turbid (Clear) 08/08/17 20:15 Urine pH 8.0 (5.0-7.0) H 08/08/17 20:15 Ur Specific [place] 1.015 (1.003-1.030) 08/08/17 20:15 Urine Protein 100 mg/dl mg/dL (Negative) 08/08/17 20:15 Urine Glucose (UA) Neg mg/dL (Negative) 08/08/17 20:15 Urine Ketones Neg mg/dL (Negative) 08/08/17 20:15 Urine Blood Mod (Negative) 08/08/17 20:15 Urine Nitrite Neg (Negative) 08/08/17 20:15 Urine Bilirubin Neg (Negative) 08/08/17 20:15 Urine Urobilinogen < 2.0 mg/dL (<2.0) 08/08/17 20:15 Ur Leukocyte Esterase Lg (Negative) 08/08/17 20:15 Urine WBC (Auto) 24.0 /HPF (0.0-6.0) H 08/08/17 20:15 Urine RBC (Auto) 3.0 /HPF (0.0-6.0) 08/08/17 20:15 U Epithel Cells (Auto) 3.0 /HPF (0-13.0) 08/08/17 20:15 Urine Bacteria (Auto) 4+ /HPF (Negative) 08/08/17 20:15 Urine Mucus 3+ /HPF 08/08/17 20:15 Fluid Type Peritoneal 08/08/17 18:18 Fluid Color Straw 08/08/17 18:18 Fluid Appearance Clear 08/08/17 18:18 Fluid pH 7.74 08/08/17 18:18 Fluid WBC 4 /mm3 08/08/17 18:18 Fluid RBC 1 /mm3 08/08/17 18:18 Fluid Seg Neutrophils 12 % 08/08/17 18:18 Fluid Lymphocytes 0 % 08/08/17 18:18 Fluid Reactive Lymphs 0 % 08/08/17 18:18 Fluid Monocytes 1 % 08/08/17 18:18 Fluid Eosinophils 0 % 08/08/17 18:18 Fluid Basophils 0 % 08/08/17 18:18 Fluid Glucose 315 mg/dL (40-70) H 08/08/17 18:18 Random Vancomycin 19.5 ug/mL (0-40.0) 08/22/17 03:40 Hep Bs Antigen Non-reactive (Negative) 08/22/17 03:40 Hepatitis C Antibody Non-reactive (NonReactive) 08/22/17 03:40 Miscellaneous Test Flexitest 1 H 09/04/17 10:43 Blood Type O POSITIVE 09/03/17 16:55 Antibody Screen TNR 09/03/17 16:55 VAN Antibody Screen Negative 09/03/17 16:55 Crossmatch See Detail 09/03/17 16:55 - Imaging and Cardiology CT scan - abdomen: image reviewed (no acute findings)
--- NOTE | 2017-09-06 10:46 | Progress Note ---
Assessment and Plan Assessment: 1) Sepsis with septic shock: still on levophed, leukocytosis better today; new source ? GI bleed ? surgical wound infection ? VAP (doubt -CXR no consolidation ). Initial source bowel obstruction / suspect ?gastric perforation. -CRP= 34 -->30 -->19-->0.1 ->2.8 -procalcitonin=1.3 -->7.6 2) Bowel obstruction / suspect ?gastric perforation ? peritonitis -S/P Exlap, G-tube placement, EGD, abdominal washout and removal of PD -OR findings - bowel obstruction due to entanglement of PD cath, abscess cavity in LUQ and ? suspect perforation of unclear location 3) CA-UTI: chronic ivan exchanged every 4 weeks and ureteral stents in place which are exchanged every 6 months ? urine cultures still pending should r/o MDR bacteria 4) Paraplegia 5) ESRD on PD - no evidence of peritonitis, wbc count 2. 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 6) Recent pancreatitis 7) Penicillin allergy-has taken keflex w/o problems 8) Presumed Surgical wound infection / dehiscence ? 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 Plan: -eval ? GI bleed and persistent need of pressors -continue zyvox and fluconazole day 4 of 10 -repeat CT abd - pending -re-check blood cx -taper down IV steroids -monitor leukocytosis I will be covering the weekend Thank you Dr Baez for your consultation, will follow up with you. Ramya Lang MD Infectious Diseases Specialist [facility] ([facility] M [phone] O [phone] Subjective Date of service: 09/06/17 Principal diagnosis: septic shock Interval history: Pt remains intubated on the vent on levophed at 5, on TPN, fentanyl, no fever. Microbiology: Blood cultures: 08/08 neg 08/12 neg 08/16 neg 08/20 neg 10/5 neg Urine cultures: 08/08 10-100K skin grace Respiratory cultures: 08/30 tracheal asp MRSA Wound cultures: 10 Staph aureus and Kristine / MRSA, E faecalis, Kristine albicans Stool cultures: Other: 08/08 peritoneal fluid + WINE MANAGER/Diphteroids Current Antimicrobials: zyvox 09/03 fluconazole 09/03 Previous Antimicrobials: 08/10 levaquin 08/16 vancomycin 08/13 meropenem 08/16 fluconazole Micafungin 08/29 meropenem 08/29 Objective - Exam Narrative Exam: General appearance: sedated on vent Eyes: anicteric sclerae, moist conjunctivae; no lid-lag; PERRLA HENT: Atraumatic; limited OP ETT, NGT Neck: Trachea midline; supple, no thyromegaly or lymphadenopathy Lungs: coarse BS moreno CV: RRR, no murmurs Abdomen: soft, midline surgical wound with surtures. Gtube. drain Extremities: + peripheral edema + leg ulcer Skin: Normal temperature, turgor and texture; no rash, ulcers or subcutaneous nodules Psych: sedated. Neuro: sedated Lines: / Right IJ Nair 08/16 - Constitutional Vitals: Vital Signs Temp Pulse Resp BP Pulse Ox 99.5 F 89 20 103/51 100 09/06/17 07:50 09/06/17 09:06 09/06/17 09:06 09/06/17 08:51 09/06/17 08:51 Temperature -Last 24 Hours Temperature 99.5 F Temperature 99.4 F Temperature 99.6 F Temperature 99.6 F Temperature 99.1 F Temperature 99.2 F Temperature 99.2 F Temperature 99.2 F Temperature 98.0 F - Labs CBC & Chem 7: 09/06/17 05:30 09/06/17 05:30 Labs: Abnormal lab results 09/04/17 09/05/17 09/05/17 Range/Units 10:43 12:12 14:32 WBC (4.5-11.0) K/mm3 RBC (3.65-5.03) M/mm3 Hgb (10.1-14.3) gm/dl Hct (30.3-42.9) % RDW (13.2-15.2) % Lymphocytes % (Manual) (13.4-35.0) % Nucleated RBC % (0.0-0.9) % Seg Neutrophils # Man (1.8-7.7) K/mm3 Lymphocytes # (Manual) (1.2-5.4) K/mm3 Monocytes # (Manual) (0.0-0.8) K/mm3 Sodium (137-145) mmol/L Chloride (98-107) mmol/L BUN (7-17) mg/dL Creatinine (0.7-1.2) mg/dL Glucose (65-100) mg/dL POC Glucose 344 H 265 H (70-105) C-Reactive Protein (0.00-1.30) mg/dL Miscellaneous Test Flexitest 1 H 09/05/17 09/05/17 09/05/17 Range/Units 15:32 16:41 17:28 WBC (4.5-11.0) K/mm3 RBC (3.65-5.03) M/mm3 Hgb (10.1-14.3) gm/dl Hct (30.3-42.9) % RDW (13.2-15.2) % Lymphocytes % (Manual) (13.4-35.0) % Nucleated RBC % (0.0-0.9) % Seg Neutrophils # Man (1.8-7.7) K/mm3 Lymphocytes # (Manual) (1.2-5.4) K/mm3 Monocytes # (Manual) (0.0-0.8) K/mm3 Sodium (137-145) mmol/L Chloride (98-107) mmol/L BUN (7-17) mg/dL Creatinine (0.7-1.2) mg/dL Glucose (65-100) mg/dL POC Glucose 145 H 188 H 246 H (70-105) C-Reactive Protein (0.00-1.30) mg/dL Miscellaneous Test 09/05/17 09/05/17 09/05/17 Range/Units 18:38 20:10 21:06 WBC (4.5-11.0) K/mm3 RBC (3.65-5.03) M/mm3 Hgb (10.1-14.3) gm/dl Hct (30.3-42.9) % RDW (13.2-15.2) % Lymphocytes % (Manual) (13.4-35.0) % Nucleated RBC % (0.0-0.9) % Seg Neutrophils # Man (1.8-7.7) K/mm3 Lymphocytes # (Manual) (1.2-5.4) K/mm3 Monocytes # (Manual) (0.0-0.8) K/mm3 Sodium (137-145) mmol/L Chloride (98-107) mmol/L BUN (7-17) mg/dL Creatinine (0.7-1.2) mg/dL Glucose (65-100) mg/dL POC Glucose 271 H 165 H 134 H (70-105) C-Reactive Protein (0.00-1.30) mg/dL Miscellaneous Test 09/05/17 09/06/17 09/06/17 Range/Units 23:07 00:10 01:08 WBC (4.5-11.0) K/mm3 RBC (3.65-5.03) M/mm3 Hgb (10.1-14.3) gm/dl Hct (30.3-42.9) % RDW (13.2-15.2) % Lymphocytes % (Manual) (13.4-35.0) % Nucleated RBC % (0.0-0.9) % Seg Neutrophils # Man (1.8-7.7) K/mm3 Lymphocytes # (Manual) (1.2-5.4) K/mm3 Monocytes # (Manual) (0.0-0.8) K/mm3 Sodium (137-145) mmol/L Chloride (98-107) mmol/L BUN (7-17) mg/dL Creatinine (0.7-1.2) mg/dL Glucose (65-100) mg/dL POC Glucose 135 H 147 H 133 H (70-105) C-Reactive Protein (0.00-1.30) mg/dL Miscellaneous Test 09/06/17 09/06/17 09/06/17 Range/Units 02:01 03:08 05:30 WBC 38.6 H (4.5-11.0) K/mm3 RBC 2.95 L (3.65-5.03) M/mm3 Hgb 8.3 L (10.1-14.3) gm/dl Hct 25.3 L (30.3-42.9) % RDW 22.2 H (13.2-15.2) % Lymphocytes % (Manual) 2.0 L (13.4-35.0) % Nucleated RBC % 5.0 H (0.0-0.9) % Seg Neutrophils # Man 25.9 H (1.8-7.7) K/mm3 Lymphocytes # (Manual) 0.8 L (1.2-5.4) K/mm3 Monocytes # (Manual) 1.9 H (0.0-0.8) K/mm3 Sodium (137-145) mmol/L Chloride (98-107) mmol/L BUN (7-17) mg/dL Creatinine (0.7-1.2) mg/dL Glucose (65-100) mg/dL POC Glucose 146 H 135 H (70-105) C-Reactive Protein (0.00-1.30) mg/dL Miscellaneous Test 09/06/17 09/06/17 09/06/17 Range/Units 05:30 05:30 05:48 WBC (4.5-11.0) K/mm3 RBC (3.65-5.03) M/mm3 Hgb (10.1-14.3) gm/dl Hct (30.3-42.9) % RDW (13.2-15.2) % Lymphocytes % (Manual) (13.4-35.0) % Nucleated RBC % (0.0-0.9) % Seg Neutrophils # Man (1.8-7.7) K/mm3 Lymphocytes # (Manual) (1.2-5.4) K/mm3 Monocytes # (Manual) (0.0-0.8) K/mm3 Sodium 135 L (137-145) mmol/L Chloride 93.5 L (98-107) mmol/L BUN 82 H (7-17) mg/dL Creatinine 2.3 H (0.7-1.2) mg/dL Glucose 148 H (65-100) mg/dL POC Glucose 152 H (70-105) C-Reactive Protein 2.80 H (0.00-1.30) mg/dL Miscellaneous Test
--- NOTE | 2017-09-06 12:46 | Cat Scan Report ---
CT ABDOMEN AND PELVIS WITH CONTRAST INDICATION: Persistent septic shock. Recent gastric perforation and bowel obstruction. Peritoneal dialysis. COMPARISON: 08/28/2017. FINDINGS: Abdomen and pelvis CT performed following oral contrast and intravenous administration of 100 cc of Omnipaque 300. LUNG BASES: Small right pleural effusion posteriorly is new. Mild bibasilar atelectasis and mild cardiomegaly again noted. Nonspecific distal esophageal wall prominence/thickening, not excluded for gastroesophageal reflux and/or hiatal hernia, amongst others. ABDOMEN: Exam limited due to streak artifact from patient's arms and other extrinsic devices. However, stable to slightly improved ascites in this patient with stable right peritoneal dialysis catheter tip terminating in the left upper quadrant. Gastric postsurgical changes, PEG tube and bilateral double-J ureteral stents also again noted. Midline abdominal incision also again seen with lesser density/debris as along its superior extent near the G-tube as on axial image 112, series 2, amongst others. Liver, spleen, pancreas, adrenals, aorta and IVC grossly unremarkable. Cholecystectomy clips again noted. Atrophic kidneys bilaterally. Nonobstructive bowel. PELVIS: Stable pelvic ascites, uterus and rectosigmoid. [place] catheter again decompresses the urinary bladder. No size significant adenopathy. Multilevel spinal degenerative changes including lower thoracic spine and lower lumbar facet arthropathy again noted. CONCLUSION: 1. Minimal right pleural effusion now seen, as described. Interval healing along midline ventral incision as also removal of Dobbhoff tube and right groin venous catheter. 2. Otherwise stable abdomen and pelvis CT appearance with various findings, including iatrogenic changes, atrophic kidneys and small amount of ascites in this patient on peritoneal dialysis, as described. Thank you for the opportunity to participate in this patient's care.
[2017-09-06] MEDS: LEVEMIR SUB-Q SCH (13:41)
[2017-09-06] MEDS: PROTONIX IV SCH (13:41)
[2017-09-06] MEDS: NOVOLOG SUB-Q SCH ×2 (13:41→17:50)
--- NOTE | 2017-09-06 13:55 | Progress Note ---
Assessment and Plan Conmtinues to be intubated. Planned for OR on Sunday 09/09 Subjective Date of service: 09/06/17 Patient Reports: Positive: other (non verbal) Objective Vital Signs - 12hr 09/06/17 09/06/17 09/06/17 02:00 02:15 02:30 Temperature Pulse Rate 86 86 85 Pulse Rate [ Throughout] Respiratory 19 17 20 Rate Respiratory Rate [ Throughout] Blood Pressure 114/56 120/52 127/52 O2 Sat by Pulse 100 100 100 Oximetry O2 Sat by Pulse Oximetry [ Throughout] 09/06/17 09/06/17 09/06/17 02:45 03:00 03:15 Temperature Pulse Rate 84 85 86 Pulse Rate [ Throughout] Respiratory 20 20 19 Rate Respiratory Rate [ Throughout] Blood Pressure 123/57 127/54 122/56 O2 Sat by Pulse 100 100 100 Oximetry O2 Sat by Pulse Oximetry [ Throughout] 09/06/17 09/06/17 09/06/17 03:30 03:45 04:00 Temperature 99.4 F Pulse Rate 84 85 85 Pulse Rate [ Throughout] Respiratory 20 20 20 Rate Respiratory Rate [ Throughout] Blood Pressure 126/59 128/58 125/57 O2 Sat by Pulse 100 100 100 Oximetry O2 Sat by Pulse Oximetry [ Throughout] 09/06/17 09/06/17 09/06/17 04:15 04:22 04:30 Temperature Pulse Rate 85 84 85 Pulse Rate [ Throughout] Respiratory 20 18 Rate Respiratory Rate [ Throughout] Blood Pressure 129/60 129/60 109/60 O2 Sat by Pulse 100 100 100 Oximetry O2 Sat by Pulse Oximetry [ Throughout] 09/06/17 09/06/17 09/06/17 04:45 05:00 05:15 Temperature Pulse Rate 87 87 86 Pulse Rate [ Throughout] Respiratory 20 20 20 Rate Respiratory Rate [ Throughout] Blood Pressure 117/54 115/60 115/53 O2 Sat by Pulse 100 100 100 Oximetry O2 Sat by Pulse Oximetry [ Throughout] 09/06/17 09/06/17 09/06/17 05:30 05:45 06:00 Temperature Pulse Rate 89 88 88 Pulse Rate [ Throughout] Respiratory 18 17 19 Rate Respiratory Rate [ Throughout] Blood Pressure 113/52 111/49 113/47 O2 Sat by Pulse 100 100 100 Oximetry O2 Sat by Pulse Oximetry [ Throughout] 09/06/17 09/06/17 09/06/17 06:15 06:30 06:45 Temperature Pulse Rate 86 87 87 Pulse Rate [ Throughout] Respiratory 19 19 16 Rate Respiratory Rate [ Throughout] Blood Pressure 113/51 110/53 111/56 O2 Sat by Pulse 100 100 100 Oximetry O2 Sat by Pulse Oximetry [ Throughout] 09/06/17 09/06/17 09/06/17 07:00 07:15 07:30 Temperature Pulse Rate 86 86 88 Pulse Rate [ Throughout] Respiratory 19 19 19 Rate Respiratory Rate [ Throughout] Blood Pressure 114/52 102/55 117/51 O2 Sat by Pulse 100 100 100 Oximetry O2 Sat by Pulse Oximetry [ Throughout] 09/06/17 09/06/17 09/06/17 07:45 07:50 08:51 Temperature 99.5 F Pulse Rate 87 84 Pulse Rate [ Throughout] Respiratory 16 Rate Respiratory Rate [ Throughout] Blood Pressure 115/52 103/51 O2 Sat by Pulse 100 100 Oximetry O2 Sat by Pulse Oximetry [ Throughout] 09/06/17 09/06/17 09/06/17 08:57 09:06 11:40 Temperature Pulse Rate 102 H Pulse Rate [ 88 89 Throughout] Respiratory Rate Respiratory 20 20 Rate [ Throughout] Blood Pressure O2 Sat by Pulse 100 Oximetry O2 Sat by Pulse Oximetry [ Throughout] 09/06/17 09/06/17 09/06/17 12:50 13:00 13:15 Temperature 99.5 F Pulse Rate 92 H 92 H 90 Pulse Rate [ Throughout] Respiratory 20 Rate Respiratory Rate [ Throughout] Blood Pressure 93/68 93/68 116/57 O2 Sat by Pulse Oximetry O2 Sat by Pulse 97 Oximetry [ Throughout] 09/06/17 13:30 Temperature Pulse Rate 91 H Pulse Rate [ Throughout] Respiratory Rate Respiratory Rate [ Throughout] Blood Pressure 103/58 O2 Sat by Pulse Oximetry O2 Sat by Pulse Oximetry [ Throughout] - General physical appearance no distress, chronically ill - Abdomen soft, not distended, not rebound, not guarding (Abdomen with rettention sutures in place) - Labs 09/06/17 05:30 09/06/17 05:30 Diabetes panel 09/06/17 Range/Units 05:30 Sodium 135 L (137-145) mmol/L Potassium 4.2 (3.6-5.0) mmol/L Chloride 93.5 L (98-107) mmol/L Carbon Dioxide 24 (22-30) mmol/L BUN 82 H (7-17) mg/dL Creatinine 2.3 H (0.7-1.2) mg/dL Glucose 148 H (65-100) mg/dL Calcium 8.4 (8.4-10.2) mg/dL Calcium panel 09/06/17 Range/Units 05:30 Calcium 8.4 (8.4-10.2) mg/dL Phosphorus 4.50 D (2.5-4.5) mg/dL Pituitary panel 09/06/17 Range/Units 05:30 Sodium 135 L (137-145) mmol/L Potassium 4.2 (3.6-5.0) mmol/L Chloride 93.5 L (98-107) mmol/L Carbon Dioxide 24 (22-30) mmol/L BUN 82 H (7-17) mg/dL Creatinine 2.3 H (0.7-1.2) mg/dL Glucose 148 H (65-100) mg/dL Calcium 8.4 (8.4-10.2) mg/dL Adrenal panel 09/06/17 Range/Units 05:30 Sodium 135 L (137-145) mmol/L Potassium 4.2 (3.6-5.0) mmol/L Chloride 93.5 L (98-107) mmol/L Carbon Dioxide 24 (22-30) mmol/L BUN 82 H (7-17) mg/dL Creatinine 2.3 H (0.7-1.2) mg/dL Glucose 148 H (65-100) mg/dL Calcium 8.4 (8.4-10.2) mg/dL
[2017-09-06 14:07] LABS: Hematocrit 28.5 % (30.3-42.9); Hemoglobin 8.9 gm/dl (10.1-14.3)
[2017-09-06] MEDS: HEPARIN IV PRN (16:58)
[2017-09-06] MEDS: LEVOPHED 8 MG in NACL 0.9% 250ML 242 ML IV SCH (17:52)
[2017-09-06] MEDS ORDERED: INTRALIPID 20% 250 ML IV SCH (20:00)
[2017-09-06] MEDS ORDERED: TPN ADULT 1,800 ML IV SCH (20:00)
[2017-09-06] MEDS: PROTONIX 80 MG in NACL 0.9% 100 ML IV SCH (21:25)
--- NOTE | 2017-09-06 22:52 | Progress Note ---
Assessment and Plan sepsis of unclear etiology. CT scan shows no fluid collections, and less ascites than before. continues to be afebrile, but is requiring 5 of levophed for pressor support. continue abx, and daily dressing changes GI bleed, of unknown etiology possible may have hypocoagulable pathology as she has fresh clot in her wound which is extra-luminal as well as lower GI bleeding with the same 24 hours. A similar occurrence happened a week and a half ago. bleeding stopped without intervention and coags were normal. It is very uncommon to have both intra- luminal and extra-luminal bleeding at the same time. No blood in G-tube or NGT. consult GI for colonoscopy. renal failure, continue dialysis - Patient Problems (1) SBO (small bowel obstruction) Current Visit: Yes Status: Acute Subjective Date of service: 09/06/17 (overnight nurse reported melana, had a Ct scan done of A/P, no acute findings or changes compared to previous scan. ) Objective Vital Signs - 12hr 09/06/17 09/06/17 09/06/17 10:45 11:38 11:40 Temperature Pulse Rate 92 H 102 H 102 H Pulse Rate [ Anterior Bilateral Throughout] Respiratory 13 Rate Respiratory Rate [Anterior Bilateral Throughout] Respiratory Rate [ Generalized] Blood Pressure 108/55 111/60 O2 Sat by Pulse 98 100 100 Oximetry O2 Sat by Pulse Oximetry [ Throughout] 09/06/17 09/06/17 09/06/17 11:45 12:00 12:15 Temperature 99.6 F Pulse Rate 95 H 96 H 93 H Pulse Rate [ Anterior Bilateral Throughout] Respiratory 20 20 21 Rate Respiratory Rate [Anterior Bilateral Throughout] Respiratory Rate [ Generalized] Blood Pressure 109/56 113/60 127/58 O2 Sat by Pulse 100 100 100 Oximetry O2 Sat by Pulse Oximetry [ Throughout] 09/06/17 09/06/17 09/06/17 12:30 12:45 12:50 Temperature 99.5 F Pulse Rate 89 92 H 92 H Pulse Rate [ Anterior Bilateral Throughout] Respiratory 20 15 20 Rate Respiratory Rate [Anterior Bilateral Throughout] Respiratory Rate [ Generalized] Blood Pressure 118/59 118/59 93/68 O2 Sat by Pulse 100 100 Oximetry O2 Sat by Pulse 97 Oximetry [ Throughout] 09/06/17 09/06/17 09/06/17 13:00 13:15 13:30 Temperature Pulse Rate 88 90 90 Pulse Rate [ Anterior Bilateral Throughout] Respiratory 20 10 L 20 Rate Respiratory Rate [Anterior Bilateral Throughout] Respiratory Rate [ Generalized] Blood Pressure 118/49 116/57 103/58 O2 Sat by Pulse 100 100 98 Oximetry O2 Sat by Pulse Oximetry [ Throughout] 09/06/17 09/06/17 09/06/17 13:45 14:00 14:01 Temperature Pulse Rate 97 H 92 H 101 H Pulse Rate [ Anterior Bilateral Throughout] Respiratory 20 20 Rate Respiratory Rate [Anterior Bilateral Throughout] Respiratory Rate [ Generalized] Blood Pressure 103/58 54/24 54/25 O2 Sat by Pulse 97 100 Oximetry O2 Sat by Pulse Oximetry [ Throughout] 09/06/17 09/06/17 09/06/17 14:05 14:15 14:30 Temperature Pulse Rate 100 H 102 H 99 H Pulse Rate [ Anterior Bilateral Throughout] Respiratory 21 Rate Respiratory Rate [Anterior Bilateral Throughout] Respiratory Rate [ Generalized] Blood Pressure 139/60 125/53 86/48 O2 Sat by Pulse 98 Oximetry O2 Sat by Pulse Oximetry [ Throughout] 09/06/17 09/06/17 09/06/17 14:31 14:45 14:46 Temperature Pulse Rate 101 H 105 H 105 H Pulse Rate [ Anterior Bilateral Throughout] Respiratory 20 12 Rate Respiratory Rate [Anterior Bilateral Throughout] Respiratory Rate [ Generalized] Blood Pressure 86/48 94/58 94/58 O2 Sat by Pulse 100 100 Oximetry O2 Sat by Pulse Oximetry [ Throughout] 09/06/17 09/06/17 09/06/17 15:01 15:05 15:15 Temperature Pulse Rate 105 H 103 H 109 H Pulse Rate [ Anterior Bilateral Throughout] Respiratory 20 16 Rate Respiratory Rate [Anterior Bilateral Throughout] Respiratory Rate [ Generalized] Blood Pressure 92/49 92/49 92/49 O2 Sat by Pulse 100 100 Oximetry O2 Sat by Pulse Oximetry [ Throughout] 09/06/17 09/06/17 09/06/17 15:20 15:30 15:31 Temperature Pulse Rate 102 H 103 H 104 H Pulse Rate [ Anterior Bilateral Throughout] Respiratory 20 Rate Respiratory Rate [Anterior Bilateral Throughout] Respiratory Rate [ Generalized] Blood Pressure 87/55 98/58 98/58 O2 Sat by Pulse 100 Oximetry O2 Sat by Pulse Oximetry [ Throughout] 09/06/17 09/06/17 09/06/17 15:45 15:46 16:00 Temperature 97.8 F Pulse Rate 106 H 104 H 107 H Pulse Rate [ Anterior Bilateral Throughout] Respiratory 15 18 Rate Respiratory Rate [Anterior Bilateral Throughout] Respiratory Rate [ Generalized] Blood Pressure 92/49 92/49 83/50 O2 Sat by Pulse 100 100 Oximetry O2 Sat by Pulse Oximetry [ Throughout] 09/06/17 09/06/17 09/06/17 16:04 16:15 16:17 Temperature Pulse Rate 102 H 107 H 107 H Pulse Rate [ Anterior Bilateral Throughout] Respiratory 19 Rate Respiratory Rate [Anterior Bilateral Throughout] Respiratory Rate [ Generalized] Blood Pressure 83/50 89/50 89/50 O2 Sat by Pulse 100 Oximetry O2 Sat by Pulse Oximetry [ Throughout] 09/06/17 09/06/17 09/06/17 16:30 16:32 16:45 Temperature 97.8 F Pulse Rate 107 H 105 H 106 H Pulse Rate [ Anterior Bilateral Throughout] Respiratory 17 18 Rate Respiratory Rate [Anterior Bilateral Throughout] Respiratory Rate [ Generalized] Blood Pressure 90/56 90/56 90/56 O2 Sat by Pulse 100 100 Oximetry O2 Sat by Pulse 97 Oximetry [ Throughout] 09/06/17 09/06/17 09/06/17 17:00 17:15 17:30 Temperature Pulse Rate 104 H 102 H 100 H Pulse Rate [ Anterior Bilateral Throughout] Respiratory 20 20 20 Rate Respiratory Rate [Anterior Bilateral Throughout] Respiratory Rate [ Generalized] Blood Pressure 101/50 95/53 100/42 O2 Sat by Pulse 100 99 95 Oximetry O2 Sat by Pulse Oximetry [ Throughout] 09/06/17 09/06/17 09/06/17 17:45 18:00 18:15 Temperature Pulse Rate 102 H 104 H 102 H Pulse Rate [ Anterior Bilateral Throughout] Respiratory 14 19 20 Rate Respiratory Rate [Anterior Bilateral Throughout] Respiratory Rate [ Generalized] Blood Pressure 92/43 123/58 121/59 O2 Sat by Pulse 95 99 100 Oximetry O2 Sat by Pulse Oximetry [ Throughout] 09/06/17 09/06/17 09/06/17 18:31 18:45 19:00 Temperature Pulse Rate 106 H 99 H 94 H Pulse Rate [ Anterior Bilateral Throughout] Respiratory 13 17 20 Rate Respiratory Rate [Anterior Bilateral Throughout] Respiratory 20 Rate [ Generalized] Blood Pressure 126/75 126/75 83/37 O2 Sat by Pulse 95 100 100 Oximetry O2 Sat by Pulse Oximetry [ Throughout] 09/06/17 09/06/17 09/06/17 19:15 19:30 19:45 Temperature Pulse Rate 97 H 96 H 96 H Pulse Rate [ Anterior Bilateral Throughout] Respiratory 20 20 20 Rate Respiratory Rate [Anterior Bilateral Throughout] Respiratory Rate [ Generalized] Blood Pressure 108/47 100/50 108/44 O2 Sat by Pulse 100 100 100 Oximetry O2 Sat by Pulse Oximetry [ Throughout] 09/06/17 09/06/17 09/06/17 20:00 20:05 20:15 Temperature 99.3 F Pulse Rate 94 H 95 H 95 H Pulse Rate [ Anterior Bilateral Throughout] Respiratory 20 20 Rate Respiratory Rate [Anterior Bilateral Throughout] Respiratory Rate [ Generalized] Blood Pressure 106/45 105/49 105/49 O2 Sat by Pulse 100 100 100 Oximetry O2 Sat by Pulse Oximetry [ Throughout] 09/06/17 09/06/17 09/06/17 20:30 20:32 20:45 Temperature Pulse Rate 95 H 98 H Pulse Rate [ 73 Anterior Bilateral Throughout] Respiratory 20 20 Rate Respiratory 20 Rate [Anterior Bilateral Throughout] Respiratory Rate [ Generalized] Blood Pressure 110/48 102/50 O2 Sat by Pulse 100 100 Oximetry O2 Sat by Pulse Oximetry [ Throughout] 09/06/17 09/06/17 09/06/17 20:47 21:00 21:15 Temperature Pulse Rate 97 H 99 H Pulse Rate [ 74 Anterior Bilateral Throughout] Respiratory 21 20 Rate Respiratory 22 Rate [Anterior Bilateral Throughout] Respiratory Rate [ Generalized] Blood Pressure 106/53 99/57 O2 Sat by Pulse 100 100 Oximetry O2 Sat by Pulse Oximetry [ Throughout] 09/06/17 09/06/17 09/06/17 21:30 21:45 22:00 Temperature Pulse Rate 97 H 97 H 98 H Pulse Rate [ Anterior Bilateral Throughout] Respiratory 20 17 20 Rate Respiratory Rate [Anterior Bilateral Throughout] Respiratory 20 Rate [ Generalized] Blood Pressure 86/38 113/58 118/55 O2 Sat by Pulse 100 100 100 Oximetry O2 Sat by Pulse Oximetry [ Throughout] 09/06/17 22:15 Temperature Pulse Rate 97 H Pulse Rate [ Anterior Bilateral Throughout] Respiratory 21 Rate Respiratory Rate [Anterior Bilateral Throughout] Respiratory Rate [ Generalized] Blood Pressure 123/51 O2 Sat by Pulse 100 Oximetry O2 Sat by Pulse Oximetry [ Throughout] - General physical appearance no distress, other (responds to stimuli on vent) - Respiratory normal expansion, normal respiratory effort - Abdomen other (mid line dressing changed. sero sanginous drainage. no odor. MERVIN drain dark fluid resembling dissolving hematoma fluid. G-tube in place with bile, no blood. Had fresh blood clot in the superior aspect of the wound. no active bleeidng) - Integumentary other (generalized edema) - Labs 09/06/17 13:40 09/06/17 05:30 Diabetes panel 09/06/17 Range/Units 05:30 Sodium 135 L (137-145) mmol/L Potassium 4.2 (3.6-5.0) mmol/L Chloride 93.5 L (98-107) mmol/L Carbon Dioxide 24 (22-30) mmol/L BUN 82 H (7-17) mg/dL Creatinine 2.3 H (0.7-1.2) mg/dL Glucose 148 H (65-100) mg/dL Calcium 8.4 (8.4-10.2) mg/dL Calcium panel 09/06/17 Range/Units 05:30 Calcium 8.4 (8.4-10.2) mg/dL Phosphorus 4.50 D (2.5-4.5) mg/dL Pituitary panel 09/06/17 Range/Units 05:30 Sodium 135 L (137-145) mmol/L Potassium 4.2 (3.6-5.0) mmol/L Chloride 93.5 L (98-107) mmol/L Carbon Dioxide 24 (22-30) mmol/L BUN 82 H (7-17) mg/dL Creatinine 2.3 H (0.7-1.2) mg/dL Glucose 148 H (65-100) mg/dL Calcium 8.4 (8.4-10.2) mg/dL Adrenal panel 09/06/17 Range/Units 05:30 Sodium 135 L (137-145) mmol/L Potassium 4.2 (3.6-5.0) mmol/L Chloride 93.5 L (98-107) mmol/L Carbon Dioxide 24 (22-30) mmol/L BUN 82 H (7-17) mg/dL Creatinine 2.3 H (0.7-1.2) mg/dL Glucose 148 H (65-100) mg/dL Calcium 8.4 (8.4-10.2) mg/dL
--- NOTE | 2017-09-06 23:09 | Progress Note ---
Assessment and Plan - Patient Problems (1) Leukocytosis Current Visit: Yes Status: Acute Qualifiers: Leukocytosis type: L Plan to address problem: See notes above. make sure that PD access is clean also. see notes. Probably infection from the infected PD catheter. improving. back up again. up/down continue to monitor. (2) Anemia Current Visit: Yes Status: Acute Qualifiers: Anemia type: A Iron deficiency anemia type: I Vitamin B12 deficiency anemia type: V Folate deficiency anemia type: F Bone marrow failure anemia type: B Hemolytic anemia type: H Other causes of anemia: O Chronic kidney disease stage: C Plan to address problem: see notes , monitor labs,. see notes above. continue to monitor labs with you. blood transfusion. S/P replacement transfusion. fair. (3) Acute respiratory failure Current Visit: Yes Status: Acute Qualifiers: Respiratory failure complication: R Plan to address problem: follow pulm. Subjective Date of service: 09/06/17 Principal diagnosis: septic shock Interval history: Patient seen today/examined, labs reviewed, case d/w she, and family.complaints of abdominal pain. Patient resting in bed in the ICU, post vascular procedure. labs reviewed, Reactive thrombocytosis, anemia of CD, leukocytosis from infection vs inflamatory process. Patient seen/examined, in bed in the ICU, on the vent post surgery.Labs reviewed , notes reviewed. will continue to monitor labs/patient with you. Replacement transfusion, if /when indicated. patient seen/examined, SBP75, on pressors., lethargic, on the vent, labs reviewed, wbc 39,000 Patient seen/examined, case reviewed, d/w her sister at the bed side. Patient seen/examined, labs reviewed, notes reviewed. severe septic shock from infected PD catheter The high wbc is all infection related. H?H low, and may get replacement transfusion with the next HD. Prognosis remain quite poor. Patient seen/examined, extubated, now on V Mask. labs reviewed. patient seen/examined, resting in bed, still some what lethargic . labs reviewed. Patient seen/examined, resting in bed., some difficulty with breathing./ lethargic. patient seen/examined, resting in bed, looked much better labs reviewed, and fair over all. Patient seen/examined, resting in bed, labs reviewed, case d/w her. Patient seen/examined, resting in bed on BIPAP., labs reviewed. patient seen/examined, resting in bed, on Bipap.labs reviewed, fairly stable. Patient seen today, resting in bed, labs reviewed, H/H low, and transfusion already ordered. Patient seen/examined, resting in bed, transferred back to the unit, due to resp failure. She is now on venting mask. had blood replacement done. Patient seen/examined in the ICU.labs reviewed. patient intubated this am. patient resting in bed.no new issues. Patient seen/examined in the ICU, on vent,Not readily responsive. patient seen, resting in bed, no new cbc ready.will order for today. Patient seen, resting in vent, labs reviewed.notes reviewed also. patient seen/examined, resting on vent, had HD yesterday, and today., labs reviewed. Patient seen, resting in bed, labs reviewed.fairly stable labs, except the wbc. Objective - Constitutional Vitals: Vital Signs - 12hr 09/06/17 09/06/17 09/06/17 11:38 11:40 11:45 Temperature Pulse Rate 102 H 102 H 95 H Pulse Rate [ Anterior Bilateral Throughout] Respiratory 20 Rate Respiratory Rate [Anterior Bilateral Throughout] Respiratory Rate [ Generalized] Blood Pressure 111/60 109/56 O2 Sat by Pulse 100 100 100 Oximetry O2 Sat by Pulse Oximetry [ Throughout] 09/06/17 09/06/17 09/06/17 12:00 12:15 12:30 Temperature 99.6 F Pulse Rate 96 H 93 H 89 Pulse Rate [ Anterior Bilateral Throughout] Respiratory 20 21 20 Rate Respiratory Rate [Anterior Bilateral Throughout] Respiratory Rate [ Generalized] Blood Pressure 113/60 127/58 118/59 O2 Sat by Pulse 100 100 100 Oximetry O2 Sat by Pulse Oximetry [ Throughout] 09/06/17 09/06/17 09/06/17 12:45 12:50 13:00 Temperature 99.5 F Pulse Rate 92 H 92 H 88 Pulse Rate [ Anterior Bilateral Throughout] Respiratory 15 20 20 Rate Respiratory Rate [Anterior Bilateral Throughout] Respiratory Rate [ Generalized] Blood Pressure 118/59 93/68 118/49 O2 Sat by Pulse 100 100 Oximetry O2 Sat by Pulse 97 Oximetry [ Throughout] 09/06/17 09/06/17 09/06/17 13:15 13:30 13:45 Temperature Pulse Rate 90 90 97 H Pulse Rate [ Anterior Bilateral Throughout] Respiratory 10 L 20 20 Rate Respiratory Rate [Anterior Bilateral Throughout] Respiratory Rate [ Generalized] Blood Pressure 116/57 103/58 103/58 O2 Sat by Pulse 100 98 97 Oximetry O2 Sat by Pulse Oximetry [ Throughout] 09/06/17 09/06/17 09/06/17 14:00 14:01 14:05 Temperature Pulse Rate 92 H 101 H 100 H Pulse Rate [ Anterior Bilateral Throughout] Respiratory 20 Rate Respiratory Rate [Anterior Bilateral Throughout] Respiratory Rate [ Generalized] Blood Pressure 54/24 54/25 139/60 O2 Sat by Pulse 100 Oximetry O2 Sat by Pulse Oximetry [ Throughout] 09/06/17 09/06/17 09/06/17 14:15 14:30 14:31 Temperature Pulse Rate 102 H 99 H 101 H Pulse Rate [ Anterior Bilateral Throughout] Respiratory 21 20 Rate Respiratory Rate [Anterior Bilateral Throughout] Respiratory Rate [ Generalized] Blood Pressure 125/53 86/48 86/48 O2 Sat by Pulse 98 100 Oximetry O2 Sat by Pulse Oximetry [ Throughout] 09/06/17 09/06/17 09/06/17 14:45 14:46 15:01 Temperature Pulse Rate 105 H 105 H 105 H Pulse Rate [ Anterior Bilateral Throughout] Respiratory 12 20 Rate Respiratory Rate [Anterior Bilateral Throughout] Respiratory Rate [ Generalized] Blood Pressure 94/58 94/58 92/49 O2 Sat by Pulse 100 100 Oximetry O2 Sat by Pulse Oximetry [ Throughout] 09/06/17 09/06/17 09/06/17 15:05 15:15 15:20 Temperature Pulse Rate 103 H 109 H 102 H Pulse Rate [ Anterior Bilateral Throughout] Respiratory 16 Rate Respiratory Rate [Anterior Bilateral Throughout] Respiratory Rate [ Generalized] Blood Pressure 92/49 92/49 87/55 O2 Sat by Pulse 100 Oximetry O2 Sat by Pulse Oximetry [ Throughout] 09/06/17 09/06/17 09/06/17 15:30 15:31 15:45 Temperature Pulse Rate 103 H 104 H 106 H Pulse Rate [ Anterior Bilateral Throughout] Respiratory 20 15 Rate Respiratory Rate [Anterior Bilateral Throughout] Respiratory Rate [ Generalized] Blood Pressure 98/58 98/58 92/49 O2 Sat by Pulse 100 100 Oximetry O2 Sat by Pulse Oximetry [ Throughout] 09/06/17 09/06/17 09/06/17 15:46 16:00 16:04 Temperature 97.8 F Pulse Rate 104 H 107 H 102 H Pulse Rate [ Anterior Bilateral Throughout] Respiratory 18 Rate Respiratory Rate [Anterior Bilateral Throughout] Respiratory Rate [ Generalized] Blood Pressure 92/49 83/50 83/50 O2 Sat by Pulse 100 Oximetry O2 Sat by Pulse Oximetry [ Throughout] 09/06/17 09/06/17 09/06/17 16:15 16:17 16:30 Temperature Pulse Rate 107 H 107 H 107 H Pulse Rate [ Anterior Bilateral Throughout] Respiratory 19 17 Rate Respiratory Rate [Anterior Bilateral Throughout] Respiratory Rate [ Generalized] Blood Pressure 89/50 89/50 90/56 O2 Sat by Pulse 100 100 Oximetry O2 Sat by Pulse Oximetry [ Throughout] 09/06/17 09/06/17 09/06/17 16:32 16:45 17:00 Temperature 97.8 F Pulse Rate 105 H 106 H 104 H Pulse Rate [ Anterior Bilateral Throughout] Respiratory 18 20 Rate Respiratory Rate [Anterior Bilateral Throughout] Respiratory Rate [ Generalized] Blood Pressure 90/56 90/56 101/50 O2 Sat by Pulse 100 100 Oximetry O2 Sat by Pulse 97 Oximetry [ Throughout] 09/06/17 09/06/17 09/06/17 17:15 17:30 17:45 Temperature Pulse Rate 102 H 100 H 102 H Pulse Rate [ Anterior Bilateral Throughout] Respiratory 20 20 14 Rate Respiratory Rate [Anterior Bilateral Throughout] Respiratory Rate [ Generalized] Blood Pressure 95/53 100/42 92/43 O2 Sat by Pulse 99 95 95 Oximetry O2 Sat by Pulse Oximetry [ Throughout] 09/06/17 09/06/17 09/06/17 18:00 18:15 18:31 Temperature Pulse Rate 104 H 102 H 106 H Pulse Rate [ Anterior Bilateral Throughout] Respiratory 19 20 13 Rate Respiratory Rate [Anterior Bilateral Throughout] Respiratory Rate [ Generalized] Blood Pressure 123/58 121/59 126/75 O2 Sat by Pulse 99 100 95 Oximetry O2 Sat by Pulse Oximetry [ Throughout] 09/06/17 09/06/17 09/06/17 18:45 19:00 19:15 Temperature Pulse Rate 99 H 94 H 97 H Pulse Rate [ Anterior Bilateral Throughout] Respiratory 17 20 20 Rate Respiratory Rate [Anterior Bilateral Throughout] Respiratory 20 Rate [ Generalized] Blood Pressure 126/75 83/37 108/47 O2 Sat by Pulse 100 100 100 Oximetry O2 Sat by Pulse Oximetry [ Throughout] 09/06/17 09/06/17 09/06/17 19:30 19:45 20:00 Temperature 99.3 F Pulse Rate 96 H 96 H 94 H Pulse Rate [ Anterior Bilateral Throughout] Respiratory 20 20 20 Rate Respiratory Rate [Anterior Bilateral Throughout] Respiratory Rate [ Generalized] Blood Pressure 100/50 108/44 106/45 O2 Sat by Pulse 100 100 100 Oximetry O2 Sat by Pulse Oximetry [ Throughout] 09/06/17 09/06/17 09/06/17 20:05 20:15 20:30 Temperature Pulse Rate 95 H 95 H 95 H Pulse Rate [ Anterior Bilateral Throughout] Respiratory 20 20 Rate Respiratory Rate [Anterior Bilateral Throughout] Respiratory Rate [ Generalized] Blood Pressure 105/49 105/49 110/48 O2 Sat by Pulse 100 100 100 Oximetry O2 Sat by Pulse Oximetry [ Throughout] 09/06/17 09/06/17 09/06/17 20:32 20:45 20:47 Temperature Pulse Rate 98 H Pulse Rate [ 73 74 Anterior Bilateral Throughout] Respiratory 20 Rate Respiratory 20 22 Rate [Anterior Bilateral Throughout] Respiratory Rate [ Generalized] Blood Pressure 102/50 O2 Sat by Pulse 100 Oximetry O2 Sat by Pulse Oximetry [ Throughout] 09/06/17 09/06/17 09/06/17 21:00 21:15 21:30 Temperature Pulse Rate 97 H 99 H 97 H Pulse Rate [ Anterior Bilateral Throughout] Respiratory 21 20 20 Rate Respiratory Rate [Anterior Bilateral Throughout] Respiratory 20 Rate [ Generalized] Blood Pressure 106/53 99/57 86/38 O2 Sat by Pulse 100 100 100 Oximetry O2 Sat by Pulse Oximetry [ Throughout] 09/06/17 09/06/17 09/06/17 21:45 22:00 22:15 Temperature Pulse Rate 97 H 98 H 97 H Pulse Rate [ Anterior Bilateral Throughout] Respiratory 17 20 21 Rate Respiratory Rate [Anterior Bilateral Throughout] Respiratory Rate [ Generalized] Blood Pressure 113/58 118/55 123/51 O2 Sat by Pulse 100 100 100 Oximetry O2 Sat by Pulse Oximetry [ Throughout] General appearance: Present: severe distress - EENT Eyes: PERRL, EOM intact ENT: hearing intact, clear oral mucosa Ears: bilateral: normal - Neck Neck: supple, normal ROM - Respiratory Respiratory: bilateral: diminished (vent) - Breasts Breasts: deferred - Cardiovascular Rhythm: regular Heart Sounds: Present: S1 & S2. Absent: gallop, rub Extremities: pulses intact, No edema, normal color, Full ROM - Gastrointestinal General gastrointestinal: Present: soft, non-tender, non-distended, normal bowel sounds Rectal Exam: deferred - Genitourinary Female genitourinary: deferred - Integumentary Integumentary: clear, warm, dry - Musculoskeletal Musculoskeletal: 1, strength equal bilaterally - Neurologic Neurologic: moves all extremities - Psychiatric Psychiatric: appropriate mood/affect - Labs CBC & Chem 7: 09/06/17 13:40 09/06/17 05:30 Labs: Abnormal lab results 09/04/17 09/05/17 09/06/17 Range/Units 10:43 23:07 00:10 WBC (4.5-11.0) K/mm3 RBC (3.65-5.03) M/mm3 Hgb (10.1-14.3) gm/dl Hct (30.3-42.9) % RDW (13.2-15.2) % Lymphocytes % (Manual) (13.4-35.0) % Nucleated RBC % (0.0-0.9) % Seg Neutrophils # Man (1.8-7.7) K/mm3 Lymphocytes # (Manual) (1.2-5.4) K/mm3 Monocytes # (Manual) (0.0-0.8) K/mm3 Sodium (137-145) mmol/L Chloride (98-107) mmol/L BUN (7-17) mg/dL Creatinine (0.7-1.2) mg/dL Glucose (65-100) mg/dL POC Glucose 135 H 147 H (70-105) C-Reactive Protein (0.00-1.30) mg/dL Miscellaneous Test Flexitest 1 H 09/06/17 09/06/17 09/06/17 Range/Units 01:08 02:01 03:08 WBC (4.5-11.0) K/mm3 RBC (3.65-5.03) M/mm3 Hgb (10.1-14.3) gm/dl Hct (30.3-42.9) % RDW (13.2-15.2) % Lymphocytes % (Manual) (13.4-35.0) % Nucleated RBC % (0.0-0.9) % Seg Neutrophils # Man (1.8-7.7) K/mm3 Lymphocytes # (Manual) (1.2-5.4) K/mm3 Monocytes # (Manual) (0.0-0.8) K/mm3 Sodium (137-145) mmol/L Chloride (98-107) mmol/L BUN (7-17) mg/dL Creatinine (0.7-1.2) mg/dL Glucose (65-100) mg/dL POC Glucose 133 H 146 H 135 H (70-105) C-Reactive Protein (0.00-1.30) mg/dL Miscellaneous Test 09/06/17 09/06/17 09/06/17 Range/Units 05:30 05:30 05:30 WBC 38.6 H (4.5-11.0) K/mm3 RBC 2.95 L (3.65-5.03) M/mm3 Hgb 8.3 L (10.1-14.3) gm/dl Hct 25.3 L (30.3-42.9) % RDW 22.2 H (13.2-15.2) % Lymphocytes % (Manual) 2.0 L (13.4-35.0) % Nucleated RBC % 5.0 H (0.0-0.9) % Seg Neutrophils # Man 25.9 H (1.8-7.7) K/mm3 Lymphocytes # (Manual) 0.8 L (1.2-5.4) K/mm3 Monocytes # (Manual) 1.9 H (0.0-0.8) K/mm3 Sodium 135 L (137-145) mmol/L Chloride 93.5 L (98-107) mmol/L BUN 82 H (7-17) mg/dL Creatinine 2.3 H (0.7-1.2) mg/dL Glucose 148 H (65-100) mg/dL POC Glucose (70-105) C-Reactive Protein 2.80 H (0.00-1.30) mg/dL Miscellaneous Test 09/06/17 09/06/17 09/06/17 Range/Units 05:48 08:04 09:06 WBC (4.5-11.0) K/mm3 RBC (3.65-5.03) M/mm3 Hgb (10.1-14.3) gm/dl Hct (30.3-42.9) % RDW (13.2-15.2) % Lymphocytes % (Manual) (13.4-35.0) % Nucleated RBC % (0.0-0.9) % Seg Neutrophils # Man (1.8-7.7) K/mm3 Lymphocytes # (Manual) (1.2-5.4) K/mm3 Monocytes # (Manual) (0.0-0.8) K/mm3 Sodium (137-145) mmol/L Chloride (98-107) mmol/L BUN (7-17) mg/dL Creatinine (0.7-1.2) mg/dL Glucose (65-100) mg/dL POC Glucose 152 H 164 H 172 H (70-105) C-Reactive Protein (0.00-1.30) mg/dL Miscellaneous Test 09/06/17 09/06/17 09/06/17 Range/Units 10:19 10:57 13:12 WBC (4.5-11.0) K/mm3 RBC (3.65-5.03) M/mm3 Hgb (10.1-14.3) gm/dl Hct (30.3-42.9) % RDW (13.2-15.2) % Lymphocytes % (Manual) (13.4-35.0) % Nucleated RBC % (0.0-0.9) % Seg Neutrophils # Man (1.8-7.7) K/mm3 Lymphocytes # (Manual) (1.2-5.4) K/mm3 Monocytes # (Manual) (0.0-0.8) K/mm3 Sodium (137-145) mmol/L Chloride (98-107) mmol/L BUN (7-17) mg/dL Creatinine (0.7-1.2) mg/dL Glucose (65-100) mg/dL POC Glucose 186 H 162 H 166 H (70-105) C-Reactive Protein (0.00-1.30) mg/dL Miscellaneous Test 09/06/17 09/06/17 Range/Units 13:40 17:36 WBC (4.5-11.0) K/mm3 RBC (3.65-5.03) M/mm3 Hgb 8.9 L (10.1-14.3) gm/dl Hct 28.5 L (30.3-42.9) % RDW (13.2-15.2) % Lymphocytes % (Manual) (13.4-35.0) % Nucleated RBC % (0.0-0.9) % Seg Neutrophils # Man (1.8-7.7) K/mm3 Lymphocytes # (Manual) (1.2-5.4) K/mm3 Monocytes # (Manual) (0.0-0.8) K/mm3 Sodium (137-145) mmol/L Chloride (98-107) mmol/L BUN (7-17) mg/dL Creatinine (0.7-1.2) mg/dL Glucose (65-100) mg/dL POC Glucose 161 H (70-105) C-Reactive Protein (0.00-1.30) mg/dL Miscellaneous Test
[2017-09-07] MEDS: NOVOLOG SUB-Q SCH ×4 (00:35→18:37)
[2017-09-07] MEDS: DUONEB *Not for PRN Use IH SCH ×4 (01:41→20:57)
[2017-09-07 03:59] LABS: Hematocrit 24.1 % (30.3-42.9); Hemoglobin 8.1 gm/dl (10.1-14.3); Mean Corpuscular HGB Conc 34 % (30-34); Mean Corpuscular Hemoglobin 29 pg (28-32); Mean Corpuscular Volume 86 fl (79-97); Platelet Count 235 K/mm3 (140-440); Red Blood Count 2.81 M/mm3 (3.65-5.03)
[2017-09-07 04:16] LABS: Calcium 7.8 mg/dL (8.4-10.2); Chloride 96.3 mmol/L (98-107); Magnesium 2.1 mg/dL (1.7-2.3); Phosphorous 3.8 mg/dL (2.5-4.5); Potassium 3.6 mmol/L (3.6-5.0)
[2017-09-07] MEDS: fentaNYL DRIP Premix 2,000 MCG/100 ML BAG IV SCH ×4 (04:51→21:24)
[2017-09-07] MEDS: LEVOPHED 8 MG in NACL 0.9% 250ML 242 ML IV SCH ×2 (04:52→15:45)
[2017-09-07 05:30] LABS: Red Cell Distribution Width 22.5 % (13.2-15.2)
[2017-09-07] MEDS: PROTONIX 80 MG in NACL 0.9% 100 ML IV SCH ×3 (05:32→17:11)
[2017-09-07 06:14] LABS: ABG Base Excess -1.1 mmol/L (-2.0-3.0); ABG HCO3 24.1 mmol/L (20.0-26.0); ABG Oxygen Saturation 96.7 % (95.0-99.0); ABG PH 7.367 pH Units (7.350-7.450); ABG PO2 85.4 mm Hg (80.0-90.0)
[2017-09-07 06:47] LABS: Basophils % (Manual) 0 % (0.0-1.8); Blastocytes % (Manual) 0 %
[2017-09-07 06:48] LABS: Anisocytosis 2+
[2017-09-07 06:49] LABS: Polychromasia Few; Smudge Cells Few
[2017-09-07 06:50] LABS: Diff Status Complete; Hypochromasia Few
--- NOTE | 2017-09-07 07:10 | Progress Note ---
Assessment and Plan - Patient Problems (1) ESRD (end stage renal disease) on dialysis Current Visit: Yes Status: Acute Plan to address problem: Continue HD on MWF and Isolated UF on TTS as tolerated. Due to tachycardia and hypotension with increased dose of Levophed will hold off any HD / UF today. Patient is on TPN. (2) Hyperkalemia Current Visit: Yes Status: Acute Plan to address problem: K level is better today. (3) Anemia Current Visit: No Status: Chronic Qualifiers: Anemia type: due to chronic kidney disease Iron deficiency anemia type: I Vitamin B12 deficiency anemia type: V Folate deficiency anemia type: F Bone marrow failure anemia type: B Hemolytic anemia type: H Other causes of anemia: O Chronic kidney disease stage: on chronic dialysis Qualified Code(s ): N18.6 - End stage renal disease; D63.1 - Anemia in chronic kidney disease; Z99.2 - Dependence on renal dialysis Plan to address problem: S/p multiple units of PRBC. Patient has rectal bleeding. Epogen. (4) Hypotension Current Visit: Yes Status: Chronic Qualifiers: Hypotension type: H Trimester: T Plan to address problem: On Levophed. (5) Volume overload Current Visit: Yes Status: Acute Qualifiers: Hypervolemia type: H Plan to address problem: UF as tolerated. (6) Leukocytosis Current Visit: Yes Status: Acute Qualifiers: Leukocytosis type: unspecified Qualified Code(s): D72.829 - Elevated white blood cell count, unspecified Plan to address problem: Followed by ID and Heme-Onc. (7) Acute respiratory failure with hypoxemia Current Visit: Yes Status: Acute Plan to address problem: On the vent. (8) Sepsis Current Visit: Yes Status: Acute Qualifiers: Sepsis type: S Subjective Date of service: 09/07/17 Principal diagnosis: septic shock Interval history: Patient was seen and examined at the bedside. Patient remain intubated. Unable to remove more than 2 Lts with HD yesterday due to hypotension. Objective - Vital Signs Vital signs: Vital Signs - 12hr 09/06/17 09/06/17 09/06/17 19:15 19:30 19:45 Temperature Pulse Rate 97 H 96 H 96 H Pulse Rate [ Anterior Bilateral Throughout] Pulse Rate [ Right] Respiratory 20 20 20 Rate Respiratory Rate [Anterior Bilateral Throughout] Respiratory Rate [ Generalized] Blood Pressure 108/47 100/50 108/44 O2 Sat by Pulse 100 100 100 Oximetry 09/06/17 09/06/17 09/06/17 20:00 20:05 20:15 Temperature 99.3 F Pulse Rate 94 H 95 H 95 H Pulse Rate [ Anterior Bilateral Throughout] Pulse Rate [ Right] Respiratory 20 20 Rate Respiratory Rate [Anterior Bilateral Throughout] Respiratory Rate [ Generalized] Blood Pressure 106/45 105/49 105/49 O2 Sat by Pulse 100 100 100 Oximetry 09/06/17 09/06/17 09/06/17 20:30 20:32 20:45 Temperature Pulse Rate 95 H 98 H Pulse Rate [ 73 Anterior Bilateral Throughout] Pulse Rate [ Right] Respiratory 20 20 Rate Respiratory 20 Rate [Anterior Bilateral Throughout] Respiratory Rate [ Generalized] Blood Pressure 110/48 102/50 O2 Sat by Pulse 100 100 Oximetry 09/06/17 09/06/17 09/06/17 20:47 21:00 21:15 Temperature Pulse Rate 97 H 99 H Pulse Rate [ 74 Anterior Bilateral Throughout] Pulse Rate [ Right] Respiratory 21 20 Rate Respiratory 22 Rate [Anterior Bilateral Throughout] Respiratory Rate [ Generalized] Blood Pressure 106/53 99/57 O2 Sat by Pulse 100 100 Oximetry 09/06/17 09/06/17 09/06/17 21:30 21:45 22:00 Temperature Pulse Rate 97 H 97 H 98 H Pulse Rate [ Anterior Bilateral Throughout] Pulse Rate [ Right] Respiratory 20 17 20 Rate Respiratory Rate [Anterior Bilateral Throughout] Respiratory 20 Rate [ Generalized] Blood Pressure 86/38 113/58 118/55 O2 Sat by Pulse 100 100 100 Oximetry 09/06/17 09/06/17 09/06/17 22:15 22:30 22:45 Temperature Pulse Rate 97 H 96 H 97 H Pulse Rate [ Anterior Bilateral Throughout] Pulse Rate [ Right] Respiratory 21 20 20 Rate Respiratory Rate [Anterior Bilateral Throughout] Respiratory Rate [ Generalized] Blood Pressure 123/51 126/60 117/54 O2 Sat by Pulse 100 100 100 Oximetry 09/06/17 09/06/17 09/06/17 23:00 23:15 23:30 Temperature Pulse Rate 98 H 96 H 96 H Pulse Rate [ Anterior Bilateral Throughout] Pulse Rate [ Right] Respiratory 18 18 20 Rate Respiratory Rate [Anterior Bilateral Throughout] Respiratory Rate [ Generalized] Blood Pressure 115/92 126/58 129/49 O2 Sat by Pulse 100 100 100 Oximetry 09/06/17 09/06/17 09/06/17 23:35 23:45 23:51 Temperature 99.3 F Pulse Rate 95 H 95 H 96 H Pulse Rate [ Anterior Bilateral Throughout] Pulse Rate [ 144 H Right] Respiratory 21 21 20 Rate Respiratory Rate [Anterior Bilateral Throughout] Respiratory Rate [ Generalized] Blood Pressure 130/50 130/50 130/50 O2 Sat by Pulse 100 100 100 Oximetry 09/07/17 09/07/17 09/07/17 00:00 00:15 00:30 Temperature Pulse Rate 99 H 97 H 95 H Pulse Rate [ Anterior Bilateral Throughout] Pulse Rate [ Right] Respiratory 20 20 20 Rate Respiratory Rate [Anterior Bilateral Throughout] Respiratory Rate [ Generalized] Blood Pressure 116/60 124/58 130/54 O2 Sat by Pulse 100 100 100 Oximetry 09/07/17 09/07/17 09/07/17 00:45 01:00 01:10 Temperature Pulse Rate 95 H 94 H 98 H Pulse Rate [ Anterior Bilateral Throughout] Pulse Rate [ Right] Respiratory 17 20 Rate Respiratory Rate [Anterior Bilateral Throughout] Respiratory Rate [ Generalized] Blood Pressure 132/60 122/55 126/56 O2 Sat by Pulse 100 100 100 Oximetry 09/07/17 09/07/17 09/07/17 01:15 01:20 01:30 Temperature Pulse Rate 96 H 98 H 98 H Pulse Rate [ Anterior Bilateral Throughout] Pulse Rate [ Right] Respiratory 20 20 20 Rate Respiratory Rate [Anterior Bilateral Throughout] Respiratory Rate [ Generalized] Blood Pressure 126/56 103/43 O2 Sat by Pulse 100 100 100 Oximetry 09/07/17 09/07/17 09/07/17 01:40 01:45 01:51 Temperature Pulse Rate 100 H Pulse Rate [ 100 H 100 H Anterior Bilateral Throughout] Pulse Rate [ Right] Respiratory 20 Rate Respiratory 18 20 Rate [Anterior Bilateral Throughout] Respiratory Rate [ Generalized] Blood Pressure 102/46 O2 Sat by Pulse 100 Oximetry 09/07/17 09/07/17 09/07/17 02:00 02:15 02:30 Temperature Pulse Rate 98 H 97 H 101 H Pulse Rate [ Anterior Bilateral Throughout] Pulse Rate [ Right] Respiratory 20 20 21 Rate Respiratory Rate [Anterior Bilateral Throughout] Respiratory Rate [ Generalized] Blood Pressure 112/49 103/44 100/42 O2 Sat by Pulse 100 100 100 Oximetry 09/07/17 09/07/17 09/07/17 02:45 03:00 03:15 Temperature Pulse Rate 101 H 99 H 97 H Pulse Rate [ Anterior Bilateral Throughout] Pulse Rate [ Right] Respiratory 20 20 20 Rate Respiratory Rate [Anterior Bilateral Throughout] Respiratory Rate [ Generalized] Blood Pressure 104/43 101/47 104/44 O2 Sat by Pulse 100 100 100 Oximetry 09/07/17 09/07/17 09/07/17 03:30 03:45 03:50 Temperature 97.8 F Pulse Rate 99 H 99 H 99 H Pulse Rate [ Anterior Bilateral Throughout] Pulse Rate [ Right] Respiratory 20 20 20 Rate Respiratory Rate [Anterior Bilateral Throughout] Respiratory Rate [ Generalized] Blood Pressure 102/49 77/33 O2 Sat by Pulse 100 100 100 Oximetry 09/07/17 09/07/17 09/07/17 04:00 04:15 04:30 Temperature Pulse Rate 98 H 98 H 101 H Pulse Rate [ Anterior Bilateral Throughout] Pulse Rate [ Right] Respiratory 20 20 20 Rate Respiratory Rate [Anterior Bilateral Throughout] Respiratory Rate [ Generalized] Blood Pressure 100/48 98/46 98/49 O2 Sat by Pulse 99 100 100 Oximetry 09/07/17 09/07/17 09/07/17 04:45 05:00 05:15 Temperature Pulse Rate 96 H 98 H 103 H Pulse Rate [ Anterior Bilateral Throughout] Pulse Rate [ Right] Respiratory 20 19 20 Rate Respiratory Rate [Anterior Bilateral Throughout] Respiratory Rate [ Generalized] Blood Pressure 98/45 89/42 92/50 O2 Sat by Pulse 100 95 95 Oximetry 09/07/17 09/07/17 09/07/17 05:30 05:45 05:55 Temperature Pulse Rate 106 H 105 H 105 H Pulse Rate [ Anterior Bilateral Throughout] Pulse Rate [ Right] Respiratory 20 13 21 Rate Respiratory Rate [Anterior Bilateral Throughout] Respiratory Rate [ Generalized] Blood Pressure 102/45 102/45 O2 Sat by Pulse 99 87 100 Oximetry 09/07/17 09/07/17 06:00 06:15 Temperature Pulse Rate 108 H 110 H Pulse Rate [ Anterior Bilateral Throughout] Pulse Rate [ Right] Respiratory 21 21 Rate Respiratory Rate [Anterior Bilateral Throughout] Respiratory Rate [ Generalized] Blood Pressure 85/32 89/33 O2 Sat by Pulse 100 100 Oximetry - General Appearance General appearance: well-developed, appears stated age, obese, intubated (FiO2 40%), other (Right IJ temp catheter) EENT: ATNC Neck: supple Respiratory: Present: Other (coarse breath sounds) Cardiology: regular, tachycardia, S1S2, no murmurs Gastrointestinal: normoactive bowel sounds, no tenderness, obese, other (MERVIN drain, PEG tube noted) Integumentary: no rash Neurologic: other (grimaces) Musculoskeletal: other (2+ edema of both LEs noted) - Lab 09/07/17 03:50 09/07/17 03:50 Most recent lab results ABG pH 7.367 pH Units (7.350-7.450) 09/07/17 05:23 ABG pCO2 43.0 mm Hg 09/07/17 05:23 ABG pO2 85.4 mm Hg (80.0-90.0) 09/07/17 05:23 ABG HCO3 24.1 mmol/L (20.0-26.0) 09/07/17 05:23 ABG O2 Saturation 96.7 % (95.0-99.0) 09/07/17 05:23 Calcium 7.8 mg/dL (8.4-10.2) L 09/07/17 03:50 Phosphorus 3.80 mg/dL (2.5-4.5) 09/07/17 03:50 Magnesium 2.10 mg/dL (1.7-2.3) 09/07/17 03:50
[2017-09-07] MEDS: DIFLUCAN 200 MG/100 ML BAG IV SCH (09:50)
[2017-09-07] MEDS: ZYVOX 600MG/300ML 600 MG/300 ML BAG IV SCH ×2 (09:51→21:00)
[2017-09-07] MEDS: LEVEMIR SUB-Q SCH (09:52)
--- NOTE | 2017-09-07 10:45 | Progress Note ---
Assessment and Plan Continues intubated. Plan on tracheostomy on Sunday 09/09 Subjective Date of service: 09/07/17 Patient Reports: Positive: no new complaints (NON VERBAL) Objective Vital Signs - 12hr 09/06/17 09/06/17 09/06/17 22:45 23:00 23:15 Temperature Pulse Rate 97 H 98 H 96 H Pulse Rate [ Anterior Bilateral Throughout] Pulse Rate [ From Monitor] Pulse Rate [ Right] Pulse Rate [ Throughout] Respiratory 20 18 18 Rate Respiratory Rate [Anterior Bilateral Throughout] Respiratory Rate [ Throughout] Blood Pressure 117/54 115/92 126/58 O2 Sat by Pulse 100 100 100 Oximetry 09/06/17 09/06/17 09/06/17 23:30 23:35 23:45 Temperature 99.3 F Pulse Rate 96 H 95 H 95 H Pulse Rate [ Anterior Bilateral Throughout] Pulse Rate [ From Monitor] Pulse Rate [ 144 H Right] Pulse Rate [ Throughout] Respiratory 20 21 21 Rate Respiratory Rate [Anterior Bilateral Throughout] Respiratory Rate [ Throughout] Blood Pressure 129/49 130/50 130/50 O2 Sat by Pulse 100 100 100 Oximetry 09/06/17 09/07/17 09/07/17 23:51 00:00 00:15 Temperature Pulse Rate 96 H 99 H 97 H Pulse Rate [ Anterior Bilateral Throughout] Pulse Rate [ From Monitor] Pulse Rate [ Right] Pulse Rate [ Throughout] Respiratory 20 20 20 Rate Respiratory Rate [Anterior Bilateral Throughout] Respiratory Rate [ Throughout] Blood Pressure 130/50 116/60 124/58 O2 Sat by Pulse 100 100 100 Oximetry 09/07/17 09/07/17 09/07/17 00:30 00:45 01:00 Temperature Pulse Rate 95 H 95 H 94 H Pulse Rate [ Anterior Bilateral Throughout] Pulse Rate [ From Monitor] Pulse Rate [ Right] Pulse Rate [ Throughout] Respiratory 20 17 20 Rate Respiratory Rate [Anterior Bilateral Throughout] Respiratory Rate [ Throughout] Blood Pressure 130/54 132/60 122/55 O2 Sat by Pulse 100 100 100 Oximetry 09/07/17 09/07/17 09/07/17 01:10 01:15 01:20 Temperature Pulse Rate 98 H 96 H 98 H Pulse Rate [ Anterior Bilateral Throughout] Pulse Rate [ From Monitor] Pulse Rate [ Right] Pulse Rate [ Throughout] Respiratory 20 20 Rate Respiratory Rate [Anterior Bilateral Throughout] Respiratory Rate [ Throughout] Blood Pressure 126/56 126/56 O2 Sat by Pulse 100 100 100 Oximetry 09/07/17 09/07/17 09/07/17 01:30 01:40 01:45 Temperature Pulse Rate 98 H 100 H Pulse Rate [ 100 H Anterior Bilateral Throughout] Pulse Rate [ From Monitor] Pulse Rate [ Right] Pulse Rate [ Throughout] Respiratory 20 20 Rate Respiratory 18 Rate [Anterior Bilateral Throughout] Respiratory Rate [ Throughout] Blood Pressure 103/43 102/46 O2 Sat by Pulse 100 100 Oximetry 09/07/17 09/07/17 09/07/17 01:51 02:00 02:15 Temperature Pulse Rate 98 H 97 H Pulse Rate [ 100 H Anterior Bilateral Throughout] Pulse Rate [ From Monitor] Pulse Rate [ Right] Pulse Rate [ Throughout] Respiratory 20 20 Rate Respiratory 20 Rate [Anterior Bilateral Throughout] Respiratory Rate [ Throughout] Blood Pressure 112/49 103/44 O2 Sat by Pulse 100 100 Oximetry 09/07/17 09/07/17 09/07/17 02:30 02:45 03:00 Temperature Pulse Rate 101 H 101 H 99 H Pulse Rate [ Anterior Bilateral Throughout] Pulse Rate [ From Monitor] Pulse Rate [ Right] Pulse Rate [ Throughout] Respiratory 21 20 20 Rate Respiratory Rate [Anterior Bilateral Throughout] Respiratory Rate [ Throughout] Blood Pressure 100/42 104/43 101/47 O2 Sat by Pulse 100 100 100 Oximetry 09/07/17 09/07/17 09/07/17 03:15 03:30 03:45 Temperature 97.8 F Pulse Rate 97 H 99 H 99 H Pulse Rate [ Anterior Bilateral Throughout] Pulse Rate [ From Monitor] Pulse Rate [ Right] Pulse Rate [ Throughout] Respiratory 20 20 20 Rate Respiratory Rate [Anterior Bilateral Throughout] Respiratory Rate [ Throughout] Blood Pressure 104/44 102/49 77/33 O2 Sat by Pulse 100 100 100 Oximetry 09/07/17 09/07/17 09/07/17 03:50 04:00 04:15 Temperature Pulse Rate 99 H 98 H 98 H Pulse Rate [ Anterior Bilateral Throughout] Pulse Rate [ From Monitor] Pulse Rate [ Right] Pulse Rate [ Throughout] Respiratory 20 20 20 Rate Respiratory Rate [Anterior Bilateral Throughout] Respiratory Rate [ Throughout] Blood Pressure 100/48 98/46 O2 Sat by Pulse 100 99 100 Oximetry 09/07/17 09/07/17 09/07/17 04:30 04:45 05:00 Temperature Pulse Rate 101 H 96 H 98 H Pulse Rate [ Anterior Bilateral Throughout] Pulse Rate [ From Monitor] Pulse Rate [ Right] Pulse Rate [ Throughout] Respiratory 20 20 19 Rate Respiratory Rate [Anterior Bilateral Throughout] Respiratory Rate [ Throughout] Blood Pressure 98/49 98/45 89/42 O2 Sat by Pulse 100 100 95 Oximetry 09/07/17 09/07/17 09/07/17 05:15 05:30 05:45 Temperature Pulse Rate 103 H 106 H 105 H Pulse Rate [ Anterior Bilateral Throughout] Pulse Rate [ From Monitor] Pulse Rate [ Right] Pulse Rate [ Throughout] Respiratory 20 20 13 Rate Respiratory Rate [Anterior Bilateral Throughout] Respiratory Rate [ Throughout] Blood Pressure 92/50 102/45 102/45 O2 Sat by Pulse 95 99 87 Oximetry 09/07/17 09/07/17 09/07/17 05:55 06:00 06:15 Temperature Pulse Rate 105 H 108 H 110 H Pulse Rate [ Anterior Bilateral Throughout] Pulse Rate [ From Monitor] Pulse Rate [ Right] Pulse Rate [ Throughout] Respiratory 21 21 21 Rate Respiratory Rate [Anterior Bilateral Throughout] Respiratory Rate [ Throughout] Blood Pressure 85/32 89/33 O2 Sat by Pulse 100 100 100 Oximetry 09/07/17 09/07/17 09/07/17 06:31 06:45 07:01 Temperature Pulse Rate 108 H 108 H 110 H Pulse Rate [ Anterior Bilateral Throughout] Pulse Rate [ From Monitor] Pulse Rate [ Right] Pulse Rate [ Throughout] Respiratory 20 19 22 Rate Respiratory Rate [Anterior Bilateral Throughout] Respiratory Rate [ Throughout] Blood Pressure 85/35 84/34 106/43 O2 Sat by Pulse 100 100 100 Oximetry 09/07/17 09/07/17 09/07/17 07:15 07:30 07:45 Temperature Pulse Rate 113 H 111 H 108 H Pulse Rate [ Anterior Bilateral Throughout] Pulse Rate [ From Monitor] Pulse Rate [ Right] Pulse Rate [ Throughout] Respiratory 18 15 20 Rate Respiratory Rate [Anterior Bilateral Throughout] Respiratory Rate [ Throughout] Blood Pressure 100/48 103/51 115/46 O2 Sat by Pulse 100 100 98 Oximetry 09/07/17 09/07/17 09/07/17 08:00 08:15 08:30 Temperature 98.5 F Pulse Rate 108 H 107 H 110 H Pulse Rate [ Anterior Bilateral Throughout] Pulse Rate [ 112 H From Monitor] Pulse Rate [ Right] Pulse Rate [ Throughout] Respiratory 18 20 9 L Rate Respiratory Rate [Anterior Bilateral Throughout] Respiratory Rate [ Throughout] Blood Pressure 104/65 102/58 110/56 O2 Sat by Pulse 100 100 98 Oximetry 09/07/17 09/07/17 09/07/17 08:40 08:45 08:46 Temperature Pulse Rate 109 H 109 H Pulse Rate [ Anterior Bilateral Throughout] Pulse Rate [ From Monitor] Pulse Rate [ Right] Pulse Rate [ 110 H Throughout] Respiratory 21 16 Rate Respiratory Rate [Anterior Bilateral Throughout] Respiratory 20 Rate [ Throughout] Blood Pressure 110/56 104/64 O2 Sat by Pulse 99 100 Oximetry 09/07/17 09/07/17 09/07/17 08:53 09:00 09:15 Temperature Pulse Rate 109 H 114 H Pulse Rate [ Anterior Bilateral Throughout] Pulse Rate [ From Monitor] Pulse Rate [ Right] Pulse Rate [ 107 H Throughout] Respiratory 20 18 Rate Respiratory Rate [Anterior Bilateral Throughout] Respiratory 21 Rate [ Throughout] Blood Pressure 106/51 96/57 O2 Sat by Pulse 95 100 Oximetry 09/07/17 09/07/17 09/07/17 09:30 09:45 10:00 Temperature Pulse Rate 112 H 114 H 117 H Pulse Rate [ Anterior Bilateral Throughout] Pulse Rate [ From Monitor] Pulse Rate [ Right] Pulse Rate [ Throughout] Respiratory 16 18 15 Rate Respiratory Rate [Anterior Bilateral Throughout] Respiratory Rate [ Throughout] Blood Pressure 95/56 98/48 107/43 O2 Sat by Pulse 100 92 100 Oximetry 09/07/17 10:19 Temperature Pulse Rate Pulse Rate [ Anterior Bilateral Throughout] Pulse Rate [ From Monitor] Pulse Rate [ Right] Pulse Rate [ Throughout] Respiratory Rate Respiratory Rate [Anterior Bilateral Throughout] Respiratory Rate [ Throughout] Blood Pressure 106/53 O2 Sat by Pulse 99 Oximetry - General physical appearance moderate distress - Neck no masses, trachea midline, no lymphadectomy, no venous distension - Respiratory normal expansion - Abdomen soft, not tender, not rebound, not guarding, not rigid - Labs 09/07/17 03:50 09/07/17 03:50 Diabetes panel 09/07/17 Range/Units 03:50 Sodium 136 L (137-145) mmol/L Potassium 3.6 (3.6-5.0) mmol/L Chloride 96.3 L (98-107) mmol/L Carbon Dioxide 24 (22-30) mmol/L BUN 61 H (7-17) mg/dL Creatinine 1.7 H (0.7-1.2) mg/dL Glucose 132 H (65-100) mg/dL Calcium 7.8 L (8.4-10.2) mg/dL Calcium panel 09/07/17 Range/Units 03:50 Calcium 7.8 L (8.4-10.2) mg/dL Phosphorus 3.80 (2.5-4.5) mg/dL Pituitary panel 09/07/17 Range/Units 03:50 Sodium 136 L (137-145) mmol/L Potassium 3.6 (3.6-5.0) mmol/L Chloride 96.3 L (98-107) mmol/L Carbon Dioxide 24 (22-30) mmol/L BUN 61 H (7-17) mg/dL Creatinine 1.7 H (0.7-1.2) mg/dL Glucose 132 H (65-100) mg/dL Calcium 7.8 L (8.4-10.2) mg/dL Adrenal panel 09/07/17 Range/Units 03:50 Sodium 136 L (137-145) mmol/L Potassium 3.6 (3.6-5.0) mmol/L Chloride 96.3 L (98-107) mmol/L Carbon Dioxide 24 (22-30) mmol/L BUN 61 H (7-17) mg/dL Creatinine 1.7 H (0.7-1.2) mg/dL Glucose 132 H (65-100) mg/dL Calcium 7.8 L (8.4-10.2) mg/dL
--- NOTE | 2017-09-07 12:26 | Progress Note ---
Assessment and Plan 62 y/o female originally admitted with hypotension, now back to ICU secondary to worsening hypotension, concern for sepsis, with acute respiratory failure post-op from ex-lap for abdominal distention and possible ileus, now back from OR after worsening respiratory failure, requiring re-intubation and wash out of abdomen 1. Family is agreeable to trach. Surgery arranging now. Family has agreed to LTACH placement as well. However, suggest that LTACH be firmly aware of abdominal issues and have surgery there that is willing to follow. 2. HD per renal, did not tolerate yesterday secondary to BP 3. Continue PSV trials as tolerated. Rest on rate while on HD 4. Abx therapy as previously ordered per ID. CT is stable of abdomen 5. Wean levo for MAPS >60, have not been able to come off as she drops immediately. 6. Called by [facility] in regards to surgery and ID which I have spoken to surgery. Will change to daily steroids and then stop on Saturday Overall prognosis is guarded to poor CCT 31 Subjective Date of service: 09/07/17 Principal diagnosis: septic shock Interval history: No acute events. Daughter, and Sister at bedside. Questions about cat scan and results. patient had abg this am that is good. tolerating PSV Objective Vital Signs - 12hr 09/07/17 09/07/17 09/07/17 00:30 00:45 01:00 Temperature Pulse Rate 95 H 95 H 94 H Pulse Rate [ Anterior Bilateral Throughout] Pulse Rate [ From Monitor] Pulse Rate [ Throughout] Respiratory 20 17 20 Rate Respiratory Rate [Anterior Bilateral Throughout] Respiratory Rate [ Throughout] Blood Pressure 130/54 132/60 122/55 O2 Sat by Pulse 100 100 100 Oximetry 09/07/17 09/07/17 09/07/17 01:10 01:15 01:20 Temperature Pulse Rate 98 H 96 H 98 H Pulse Rate [ Anterior Bilateral Throughout] Pulse Rate [ From Monitor] Pulse Rate [ Throughout] Respiratory 20 20 Rate Respiratory Rate [Anterior Bilateral Throughout] Respiratory Rate [ Throughout] Blood Pressure 126/56 126/56 O2 Sat by Pulse 100 100 100 Oximetry 09/07/17 09/07/17 09/07/17 01:30 01:40 01:45 Temperature Pulse Rate 98 H 100 H Pulse Rate [ 100 H Anterior Bilateral Throughout] Pulse Rate [ From Monitor] Pulse Rate [ Throughout] Respiratory 20 20 Rate Respiratory 18 Rate [Anterior Bilateral Throughout] Respiratory Rate [ Throughout] Blood Pressure 103/43 102/46 O2 Sat by Pulse 100 100 Oximetry 09/07/17 09/07/17 09/07/17 01:51 02:00 02:15 Temperature Pulse Rate 98 H 97 H Pulse Rate [ 100 H Anterior Bilateral Throughout] Pulse Rate [ From Monitor] Pulse Rate [ Throughout] Respiratory 20 20 Rate Respiratory 20 Rate [Anterior Bilateral Throughout] Respiratory Rate [ Throughout] Blood Pressure 112/49 103/44 O2 Sat by Pulse 100 100 Oximetry 09/07/17 09/07/17 09/07/17 02:30 02:45 03:00 Temperature Pulse Rate 101 H 101 H 99 H Pulse Rate [ Anterior Bilateral Throughout] Pulse Rate [ From Monitor] Pulse Rate [ Throughout] Respiratory 21 20 20 Rate Respiratory Rate [Anterior Bilateral Throughout] Respiratory Rate [ Throughout] Blood Pressure 100/42 104/43 101/47 O2 Sat by Pulse 100 100 100 Oximetry 09/07/17 09/07/17 09/07/17 03:15 03:30 03:45 Temperature 97.8 F Pulse Rate 97 H 99 H 99 H Pulse Rate [ Anterior Bilateral Throughout] Pulse Rate [ From Monitor] Pulse Rate [ Throughout] Respiratory 20 20 20 Rate Respiratory Rate [Anterior Bilateral Throughout] Respiratory Rate [ Throughout] Blood Pressure 104/44 102/49 77/33 O2 Sat by Pulse 100 100 100 Oximetry 09/07/17 09/07/17 09/07/17 03:50 04:00 04:15 Temperature Pulse Rate 99 H 98 H 98 H Pulse Rate [ Anterior Bilateral Throughout] Pulse Rate [ From Monitor] Pulse Rate [ Throughout] Respiratory 20 20 20 Rate Respiratory Rate [Anterior Bilateral Throughout] Respiratory Rate [ Throughout] Blood Pressure 100/48 98/46 O2 Sat by Pulse 100 99 100 Oximetry 09/07/17 09/07/17 09/07/17 04:30 04:45 05:00 Temperature Pulse Rate 101 H 96 H 98 H Pulse Rate [ Anterior Bilateral Throughout] Pulse Rate [ From Monitor] Pulse Rate [ Throughout] Respiratory 20 20 19 Rate Respiratory Rate [Anterior Bilateral Throughout] Respiratory Rate [ Throughout] Blood Pressure 98/49 98/45 89/42 O2 Sat by Pulse 100 100 95 Oximetry 09/07/17 09/07/17 09/07/17 05:15 05:30 05:45 Temperature Pulse Rate 103 H 106 H 105 H Pulse Rate [ Anterior Bilateral Throughout] Pulse Rate [ From Monitor] Pulse Rate [ Throughout] Respiratory 20 20 13 Rate Respiratory Rate [Anterior Bilateral Throughout] Respiratory Rate [ Throughout] Blood Pressure 92/50 102/45 102/45 O2 Sat by Pulse 95 99 87 Oximetry 09/07/17 09/07/17 09/07/17 05:55 06:00 06:15 Temperature Pulse Rate 105 H 108 H 110 H Pulse Rate [ Anterior Bilateral Throughout] Pulse Rate [ From Monitor] Pulse Rate [ Throughout] Respiratory 21 21 21 Rate Respiratory Rate [Anterior Bilateral Throughout] Respiratory Rate [ Throughout] Blood Pressure 85/32 89/33 O2 Sat by Pulse 100 100 100 Oximetry 09/07/17 09/07/17 09/07/17 06:31 06:45 07:01 Temperature Pulse Rate 108 H 108 H 110 H Pulse Rate [ Anterior Bilateral Throughout] Pulse Rate [ From Monitor] Pulse Rate [ Throughout] Respiratory 20 19 22 Rate Respiratory Rate [Anterior Bilateral Throughout] Respiratory Rate [ Throughout] Blood Pressure 85/35 84/34 106/43 O2 Sat by Pulse 100 100 100 Oximetry 09/07/17 09/07/17 09/07/17 07:15 07:30 07:45 Temperature Pulse Rate 113 H 111 H 108 H Pulse Rate [ Anterior Bilateral Throughout] Pulse Rate [ From Monitor] Pulse Rate [ Throughout] Respiratory 18 15 20 Rate Respiratory Rate [Anterior Bilateral Throughout] Respiratory Rate [ Throughout] Blood Pressure 100/48 103/51 115/46 O2 Sat by Pulse 100 100 98 Oximetry 09/07/17 09/07/17 09/07/17 08:00 08:15 08:30 Temperature 98.5 F Pulse Rate 108 H 107 H 110 H Pulse Rate [ Anterior Bilateral Throughout] Pulse Rate [ 112 H From Monitor] Pulse Rate [ Throughout] Respiratory 18 20 9 L Rate Respiratory Rate [Anterior Bilateral Throughout] Respiratory Rate [ Throughout] Blood Pressure 104/65 102/58 110/56 O2 Sat by Pulse 100 100 98 Oximetry 09/07/17 09/07/17 09/07/17 08:40 08:45 08:46 Temperature Pulse Rate 109 H 109 H Pulse Rate [ Anterior Bilateral Throughout] Pulse Rate [ From Monitor] Pulse Rate [ 110 H Throughout] Respiratory 21 16 Rate Respiratory Rate [Anterior Bilateral Throughout] Respiratory 20 Rate [ Throughout] Blood Pressure 110/56 104/64 O2 Sat by Pulse 99 100 Oximetry 09/07/17 09/07/17 09/07/17 08:53 09:00 09:15 Temperature Pulse Rate 109 H 114 H Pulse Rate [ Anterior Bilateral Throughout] Pulse Rate [ From Monitor] Pulse Rate [ 107 H Throughout] Respiratory 20 18 Rate Respiratory Rate [Anterior Bilateral Throughout] Respiratory 21 Rate [ Throughout] Blood Pressure 106/51 96/57 O2 Sat by Pulse 95 100 Oximetry 09/07/17 09/07/17 09/07/17 09:30 09:45 10:00 Temperature Pulse Rate 112 H 114 H 117 H Pulse Rate [ Anterior Bilateral Throughout] Pulse Rate [ From Monitor] Pulse Rate [ Throughout] Respiratory 16 18 15 Rate Respiratory Rate [Anterior Bilateral Throughout] Respiratory Rate [ Throughout] Blood Pressure 95/56 98/48 107/43 O2 Sat by Pulse 100 92 100 Oximetry 09/07/17 09/07/17 09/07/17 10:15 10:19 10:30 Temperature Pulse Rate 110 H 110 H Pulse Rate [ Anterior Bilateral Throughout] Pulse Rate [ From Monitor] Pulse Rate [ Throughout] Respiratory 18 20 Rate Respiratory Rate [Anterior Bilateral Throughout] Respiratory Rate [ Throughout] Blood Pressure 106/53 106/53 116/56 O2 Sat by Pulse 100 99 99 Oximetry 09/07/17 09/07/17 09/07/17 10:46 11:00 11:15 Temperature Pulse Rate 105 H 105 H 107 H Pulse Rate [ Anterior Bilateral Throughout] Pulse Rate [ From Monitor] Pulse Rate [ Throughout] Respiratory 15 19 20 Rate Respiratory Rate [Anterior Bilateral Throughout] Respiratory Rate [ Throughout] Blood Pressure 116/59 121/58 117/60 O2 Sat by Pulse 100 100 100 Oximetry 09/07/17 11:30 Temperature Pulse Rate 105 H Pulse Rate [ Anterior Bilateral Throughout] Pulse Rate [ From Monitor] Pulse Rate [ Throughout] Respiratory 20 Rate Respiratory Rate [Anterior Bilateral Throughout] Respiratory Rate [ Throughout] Blood Pressure 118/55 O2 Sat by Pulse 100 Oximetry Constitutional: other (critically ill on vent, obese) Eyes: non-icteric ENT: oropharynx moist, other (NGT) Neck: supple, no lymphadenopathy Effort: mildly labored Ascultation: Bilateral: clear (anteriorly), diminished breath sounds, wheezes ( faint expiratory wheezes), rhonchi (occ), other (coarse BS bilaterally) Cardiovascular: regular rate and rhythm Gastrointestinal: absent bowel sounds, non-tender, other (abdominal incision with new dressing noted, obese) Integumentary: normal Extremities: no cyanosis, pink and warm, edema (3+ bilateral LE edema) Neurologic: non-focal exam, pupils equal and round, other (somnolent) Psychiatric: mood appropriate, affect normal CBC and BMP: 09/07/17 03:50 09/07/17 03:50 ABG, PT/INR, D-dimer: ABG POC ABG pH 7.335 (7.35-7.45) L 08/30/17 03:31 ABG pH 7.367 pH Units (7.350-7.450) 09/07/17 05:23 POC ABG pCO2 44.1 (35-45) 08/30/17 03:31 ABG pCO2 43.0 mm Hg 09/07/17 05:23 POC ABG pO2 117 (80-105) H 08/30/17 03:31 ABG pO2 85.4 mm Hg (80.0-90.0) 09/07/17 05:23 POC ABG HCO3 23.5 08/30/17 03:31 POC ABG Total CO2 25 08/30/17 03:31 POC ABG O2 Sat 98 08/30/17 03:31 ABG O2 Saturation 96.7 % (95.0-99.0) 09/07/17 05:23 PT/INR, D-dimer PT 15.1 Sec. (12.2-14.9) H 08/31/17 18:15 INR 1.13 (0.87-1.13) 08/31/17 18:15 Abnormal lab findings: Abnormal Labs 08/08/17 08/08/17 08/09/17 21:23 21:31 11:19 WBC 15.7 H RBC 2.93 L Hgb 8.7 L Hct 26.8 L MCV MCH RDW 19.2 H Plt Count Lymph % (Auto) [place] % (Auto) [place] # Seg Neutrophils % Seg Neuts % (Manual) Lymphocytes % (Manual) Monocytes % (Manual) Nucleated RBC % Seg Neutrophils # Seg Neutrophils # Man Lymphocytes # (Manual) Monocytes # (Manual) Eosinophils # (Manual) Basophils # (Manual) PT INR POC ABG pH 7.490 H ABG pH POC ABG pCO2 POC ABG pO2 122 H ABG pO2 ABG Base Excess ABG Hemoglobin Oxyhemoglobin Sodium Potassium Chloride Carbon Dioxide BUN Creatinine Glucose POC Glucose Calcium Phosphorus Magnesium AST ALT Alkaline Phosphatase Troponin T 0.133 H* C-Reactive Protein Total Protein Albumin Triglycerides HDL Cholesterol 26 L Miscellaneous Test Crossmatch 08/09/17 08/10/17 08/10/17 13:25 04:45 04:45 WBC 15.5 H RBC 2.97 L Hgb 8.9 L Hct 27.0 L MCV MCH RDW 19.2 H Plt Count Lymph % (Auto) [place] % (Auto) [place] # Seg Neutrophils % Seg Neuts % (Manual) 73.0 H Lymphocytes % (Manual) 7.0 L Monocytes % (Manual) 14.0 H Nucleated RBC % Seg Neutrophils # Seg Neutrophils # Man 11.3 H Lymphocytes # (Manual) 1.1 L Monocytes # (Manual) 2.2 H Eosinophils # (Manual) Basophils # (Manual) 0.2 H PT INR POC ABG pH ABG pH POC ABG pCO2 POC ABG pO2 ABG pO2 ABG Base Excess ABG Hemoglobin Oxyhemoglobin Sodium Potassium 3.3 L Chloride 97.3 L Carbon Dioxide 21 L BUN 23 H Creatinine 6.5 H Glucose POC Glucose Calcium 7.3 L Phosphorus Magnesium AST ALT Alkaline Phosphatase 138 H Troponin T 0.132 H* C-Reactive Protein Total Protein 4.8 L Albumin 1.4 L Triglycerides HDL Cholesterol Miscellaneous Test Crossmatch 08/11/17 08/11/17 08/12/17 04:00 04:00 05:50 WBC 19.3 H RBC 3.10 L Hgb 9.5 L Hct 28.2 L MCV MCH RDW 19.2 H Plt Count 463 H Lymph % (Auto) 7.5 L [place] % (Auto) 14.6 H [place] # 2.8 H Seg Neutrophils % 77.0 H Seg Neuts % (Manual) Lymphocytes % (Manual) Monocytes % (Manual) Nucleated RBC % Seg Neutrophils # 14.8 H Seg Neutrophils # Man Lymphocytes # (Manual) Monocytes # (Manual) Eosinophils # (Manual) Basophils # (Manual) PT INR POC ABG pH ABG pH POC ABG pCO2 POC ABG pO2 ABG pO2 ABG Base Excess ABG Hemoglobin Oxyhemoglobin Sodium 136 L 136 L Potassium 3.3 L Chloride 96.3 L 96.6 L Carbon Dioxide BUN 26 H 26 H Creatinine 6.4 H 6.2 H Glucose 135 H 133 H POC Glucose Calcium 8.2 L Phosphorus Magnesium 1.30 L AST ALT Alkaline Phosphatase 139 H Troponin T C-Reactive Protein Total Protein 5.5 L Albumin 1.7 L Triglycerides HDL Cholesterol Miscellaneous Test Crossmatch 08/12/17 08/12/17 08/12/17 05:50 05:50 05:50 WBC 20.1 H RBC 3.06 L Hgb 9.3 L Hct 27.9 L MCV MCH RDW 18.4 H Plt Count 471 H Lymph % (Auto) [place] % (Auto) [place] # Seg Neutrophils % Seg Neuts % (Manual) 85.0 H Lymphocytes % (Manual) 8.0 L Monocytes % (Manual) Nucleated RBC % Seg Neutrophils # Seg Neutrophils # Man 17.1 H Lymphocytes # (Manual) Monocytes # (Manual) 1.0 H Eosinophils # (Manual) Basophils # (Manual) PT 15.2 H INR 1.14 H POC ABG pH ABG pH POC ABG pCO2 POC ABG pO2 ABG pO2 ABG Base Excess ABG Hemoglobin Oxyhemoglobin Sodium Potassium Chloride Carbon Dioxide BUN Creatinine Glucose POC Glucose Calcium Phosphorus Magnesium AST ALT Alkaline Phosphatase Troponin T C-Reactive Protein 28.90 H Total Protein Albumin Triglycerides HDL Cholesterol Miscellaneous Test Crossmatch 08/12/17 08/13/17 08/13/17 16:23 06:14 06:14 WBC 21.8 H RBC 3.11 L Hgb 9.4 L Hct 28.2 L MCV MCH RDW 18.2 H Plt Count 492 H Lymph % (Auto) [place] % (Auto) [place] # Seg Neutrophils % Seg Neuts % (Manual) 73.0 H Lymphocytes % (Manual) 2.0 L Monocytes % (Manual) 15 H Nucleated RBC % Seg Neutrophils # Seg Neutrophils # Man 15.9 H Lymphocytes # (Manual) 0.4 L Monocytes # (Manual) 2.4 H Eosinophils # (Manual) Basophils # (Manual) PT INR POC ABG pH ABG pH POC ABG pCO2 POC ABG pO2 ABG pO2 ABG Base Excess ABG Hemoglobin Oxyhemoglobin Sodium Potassium Chloride 96.2 L Carbon Dioxide BUN 28 H Creatinine 5.6 H Glucose 114 H POC Glucose Calcium Phosphorus Magnesium AST ALT Alkaline Phosphatase Troponin T C-Reactive Protein 26.10 H Total Protein Albumin Triglycerides HDL Cholesterol Miscellaneous Test Crossmatch 08/13/17 08/14/17 08/14/17 16:39 04:00 04:00 WBC 22.1 H RBC 3.25 L Hgb 9.9 L Hct 29.5 L MCV MCH RDW 17.9 H Plt Count 525 H Lymph % (Auto) [place] % (Auto) [place] # Seg Neutrophils % Seg Neuts % (Manual) 74.0 H Lymphocytes % (Manual) 8.0 L Monocytes % (Manual) 12.0 H Nucleated RBC % Seg Neutrophils # Seg Neutrophils # Man 16.4 H Lymphocytes # (Manual) Monocytes # (Manual) 2.7 H Eosinophils # (Manual) Basophils # (Manual) PT INR POC ABG pH ABG pH POC ABG pCO2 POC ABG pO2 ABG pO2 ABG Base Excess ABG Hemoglobin Oxyhemoglobin Sodium 134 L Potassium 3.3 L Chloride 93.3 L Carbon Dioxide BUN 27 H Creatinine 6.0 H Glucose 152 H POC Glucose 151 H Calcium Phosphorus Magnesium AST ALT Alkaline Phosphatase Troponin T C-Reactive Protein Total Protein Albumin Triglycerides HDL Cholesterol Miscellaneous Test Crossmatch 08/15/17 08/16/17 08/16/17 09:10 09:50 09:50 WBC 31.1 H RBC 3.21 L Hgb 9.6 L Hct 29.3 L MCV MCH RDW 18.1 H Plt Count 642 H Lymph % (Auto) [place] % (Auto) [place] # Seg Neutrophils % Seg Neuts % (Manual) 74.0 H Lymphocytes % (Manual) 4.0 L Monocytes % (Manual) 9.0 H Nucleated RBC % Seg Neutrophils # Seg Neutrophils # Man 23.0 H Lymphocytes # (Manual) Monocytes # (Manual) 2.8 H Eosinophils # (Manual) Basophils # (Manual) PT INR POC ABG pH ABG pH POC ABG pCO2 POC ABG pO2 ABG pO2 ABG Base Excess ABG Hemoglobin Oxyhemoglobin Sodium 136 L 136 L Potassium 3.5 L Chloride 97.6 L 94.9 L Carbon Dioxide BUN 27 H 28 H Creatinine 5.6 H 5.5 H Glucose 117 H 103 H POC Glucose Calcium Phosphorus Magnesium AST ALT Alkaline Phosphatase 137 H Troponin T C-Reactive Protein Total Protein 5.4 L Albumin 1.5 L Triglycerides HDL Cholesterol Miscellaneous Test Crossmatch 08/16/17 08/17/17 08/17/17 09:50 05:00 06:26 WBC RBC Hgb Hct MCV MCH RDW Plt Count Lymph % (Auto) [place] % (Auto) [place] # Seg Neutrophils % Seg Neuts % (Manual) Lymphocytes % (Manual) Monocytes % (Manual) Nucleated RBC % Seg Neutrophils # Seg Neutrophils # Man Lymphocytes # (Manual) Monocytes # (Manual) Eosinophils # (Manual) Basophils # (Manual) PT INR POC ABG pH ABG pH POC ABG pCO2 POC ABG pO2 ABG pO2 ABG Base Excess ABG Hemoglobin Oxyhemoglobin Sodium 134 L Potassium 3.0 L Chloride 97.8 L Carbon Dioxide BUN 30 H Creatinine 5.3 H Glucose 147 H POC Glucose 165 H Calcium 7.5 L Phosphorus Magnesium AST ALT Alkaline Phosphatase Troponin T C-Reactive Protein 32.30 H Total Protein Albumin Triglycerides HDL Cholesterol Miscellaneous Test Crossmatch 08/17/17 08/17/17 08/17/17 10:56 11:20 11:20 WBC 39.1 H RBC 3.10 L Hgb 9.2 L Hct 28.6 L MCV MCH RDW 18.3 H Plt Count 580 H Lymph % (Auto) [place] % (Auto) [place] # Seg Neutrophils % Seg Neuts % (Manual) 89.5 H Lymphocytes % (Manual) 3.5 L Monocytes % (Manual) Nucleated RBC % Seg Neutrophils # Seg Neutrophils # Man 35.0 H Lymphocytes # (Manual) Monocytes # (Manual) 2.5 H Eosinophils # (Manual) Basophils # (Manual) 0.2 H PT INR POC ABG pH 7.464 H ABG pH POC ABG pCO2 34.1 L POC ABG pO2 75 L ABG pO2 ABG Base Excess ABG Hemoglobin Oxyhemoglobin Sodium Potassium Chloride Carbon Dioxide BUN Creatinine Glucose POC Glucose Calcium Phosphorus Magnesium AST ALT Alkaline Phosphatase Troponin T C-Reactive Protein Total Protein Albumin Triglycerides HDL Cholesterol Miscellaneous Test Flexitest 1 H Crossmatch 08/17/17 08/17/17 08/17/17 11:20 16:57 20:20 WBC 34.4 H RBC 2.81 L Hgb 8.4 L Hct 26.0 L MCV MCH RDW 17.8 H Plt Count 455 H Lymph % (Auto) [place] % (Auto) [place] # Seg Neutrophils % Seg Neuts % (Manual) Lymphocytes % (Manual) 3.5 L Monocytes % (Manual) Nucleated RBC % 5.0 H Seg Neutrophils # Seg Neutrophils # Man 16.5 H Lymphocytes # (Manual) Monocytes # (Manual) 1.0 H Eosinophils # (Manual) Basophils # (Manual) PT 16.0 H INR 1.29 H POC ABG pH ABG pH POC ABG pCO2 POC ABG pO2 ABG pO2 ABG Base Excess ABG Hemoglobin Oxyhemoglobin Sodium 135 L Potassium 2.9 L* Chloride Carbon Dioxide 20 L BUN 32 H Creatinine 5.4 H Glucose 129 H POC Glucose Calcium 7.5 L Phosphorus Magnesium 1.50 L AST 85 H ALT Alkaline Phosphatase Troponin T C-Reactive Protein Total Protein 4.0 L D Albumin 1.6 L Triglycerides HDL Cholesterol Miscellaneous Test Crossmatch 08/17/17 08/17/17 08/18/17 20:54 23:47 04:26 WBC RBC Hgb Hct MCV MCH RDW Plt Count Lymph % (Auto) [place] % (Auto) [place] # Seg Neutrophils % Seg Neuts % (Manual) Lymphocytes % (Manual) Monocytes % (Manual) Nucleated RBC % Seg Neutrophils # Seg Neutrophils # Man Lymphocytes # (Manual) Monocytes # (Manual) Eosinophils # (Manual) Basophils # (Manual) PT INR POC ABG pH 7.557 H ABG pH POC ABG pCO2 23.1 L 29.0 L POC ABG pO2 187 H 148 H ABG pO2 ABG Base Excess ABG Hemoglobin Oxyhemoglobin Sodium Potassium Chloride Carbon Dioxide BUN Creatinine Glucose POC Glucose 188 H Calcium Phosphorus Magnesium AST ALT Alkaline Phosphatase Troponin T C-Reactive Protein Total Protein Albumin Triglycerides HDL Cholesterol Miscellaneous Test Crossmatch 08/18/17 08/18/17 08/18/17 05:51 11:44 17:07 WBC RBC Hgb Hct MCV MCH RDW Plt Count Lymph % (Auto) [place] % (Auto) [place] # Seg Neutrophils % Seg Neuts % (Manual) Lymphocytes % (Manual) Monocytes % (Manual) Nucleated RBC % Seg Neutrophils # Seg Neutrophils # Man Lymphocytes # (Manual) Monocytes # (Manual) Eosinophils # (Manual) Basophils # (Manual) PT INR POC ABG pH ABG pH POC ABG pCO2 POC ABG pO2 ABG pO2 ABG Base Excess ABG Hemoglobin Oxyhemoglobin Sodium Potassium Chloride Carbon Dioxide BUN Creatinine Glucose POC Glucose 202 H 195 H 182 H Calcium Phosphorus Magnesium AST ALT Alkaline Phosphatase Troponin T C-Reactive Protein Total Protein Albumin Triglycerides HDL Cholesterol Miscellaneous Test Crossmatch 08/18/17 08/18/17 08/18/17 23:45 Unknown Unknown WBC 39.0 H RBC 2.84 L Hgb 8.4 L Hct 26.5 L MCV MCH RDW 18.0 H Plt Count 476 H Lymph % (Auto) [place] % (Auto) [place] # Seg Neutrophils % Seg Neuts % (Manual) Lymphocytes % (Manual) 7.0 L Monocytes % (Manual) 10.0 H Nucleated RBC % 3.0 H Seg Neutrophils # Seg Neutrophils # Man 15.6 H Lymphocytes # (Manual) Monocytes # (Manual) 3.9 H Eosinophils # (Manual) Basophils # (Manual) PT INR POC ABG pH ABG pH POC ABG pCO2 POC ABG pO2 ABG pO2 ABG Base Excess ABG Hemoglobin Oxyhemoglobin Sodium Potassium Chloride Carbon Dioxide 19 L BUN 34 H Creatinine 5.6 H Glucose 201 H POC Glucose 163 H Calcium 7.8 L Phosphorus 1.90 L D Magnesium 1.60 L AST ALT Alkaline Phosphatase Troponin T C-Reactive Protein Total Protein Albumin Triglycerides HDL Cholesterol Miscellaneous Test Crossmatch 08/19/17 08/19/17 08/19/17 04:18 05:00 05:00 WBC 40.0 H RBC 2.46 L Hgb 7.3 L Hct 22.6 L MCV MCH RDW 18.1 H Plt Count Lymph % (Auto) [place] % (Auto) [place] # Seg Neutrophils % Seg Neuts % (Manual) Lymphocytes % (Manual) 8.0 L Monocytes % (Manual) Nucleated RBC % 2.0 H Seg Neutrophils # Seg Neutrophils # Man 16.4 H Lymphocytes # (Manual) Monocytes # (Manual) 1.2 H Eosinophils # (Manual) 1.2 H Basophils # (Manual) PT INR POC ABG pH 7.463 H ABG pH POC ABG pCO2 29.7 L POC ABG pO2 134 H ABG pO2 ABG Base Excess ABG Hemoglobin Oxyhemoglobin Sodium Potassium 5.1 H D Chloride Carbon Dioxide 20 L BUN 40 H Creatinine 5.3 H Glucose 128 H POC Glucose Calcium 7.8 L Phosphorus 1.90 L Magnesium AST ALT Alkaline Phosphatase Troponin T C-Reactive Protein Total Protein Albumin Triglycerides HDL Cholesterol Miscellaneous Test Crossmatch 08/19/17 08/19/17 08/19/17 05:19 07:37 09:52 WBC 45.0 H* RBC 2.50 L Hgb 7.5 L Hct 24.5 L MCV 98 H MCH RDW 18.4 H Plt Count Lymph % (Auto) [place] % (Auto) [place] # Seg Neutrophils % Seg Neuts % (Manual) 81.5 H Lymphocytes % (Manual) 4.0 L Monocytes % (Manual) Nucleated RBC % 1.0 H Seg Neutrophils # Seg Neutrophils # Man 36.7 H Lymphocytes # (Manual) Monocytes # (Manual) Eosinophils # (Manual) Basophils # (Manual) PT INR POC ABG pH ABG pH POC ABG pCO2 POC ABG pO2 ABG pO2 ABG Base Excess ABG Hemoglobin Oxyhemoglobin Sodium Potassium Chloride Carbon Dioxide BUN Creatinine Glucose POC Glucose 142 H Calcium Phosphorus Magnesium AST ALT Alkaline Phosphatase Troponin T C-Reactive Protein 34.20 H Total Protein Albumin Triglycerides HDL Cholesterol Miscellaneous Test Crossmatch 08/19/17 08/19/17 08/20/17 11:16 18:12 00:35 WBC RBC Hgb Hct MCV MCH RDW Plt Count Lymph % (Auto) [place] % (Auto) [place] # Seg Neutrophils % Seg Neuts % (Manual) Lymphocytes % (Manual) Monocytes % (Manual) Nucleated RBC % Seg Neutrophils # Seg Neutrophils # Man Lymphocytes # (Manual) Monocytes # (Manual) Eosinophils # (Manual) Basophils # (Manual) PT INR POC ABG pH ABG pH POC ABG pCO2 POC ABG pO2 ABG pO2 ABG Base Excess ABG Hemoglobin Oxyhemoglobin Sodium Potassium Chloride Carbon Dioxide BUN Creatinine Glucose POC Glucose 143 H 137 H 164 H Calcium Phosphorus Magnesium AST ALT Alkaline Phosphatase Troponin T C-Reactive Protein Total Protein Albumin Triglycerides HDL Cholesterol Miscellaneous Test Crossmatch 08/20/17 08/20/17 08/20/17 03:20 03:20 04:00 WBC 48.0 H* RBC 2.55 L Hgb 7.6 L Hct 23.4 L MCV MCH RDW 18.4 H Plt Count Lymph % (Auto) [place] % (Auto) [place] # Seg Neutrophils % Seg Neuts % (Manual) 90.0 H Lymphocytes % (Manual) 3.0 L Monocytes % (Manual) Nucleated RBC % Seg Neutrophils # Seg Neutrophils # Man 43.2 H Lymphocytes # (Manual) Monocytes # (Manual) 1.4 H Eosinophils # (Manual) 0.5 H Basophils # (Manual) PT INR POC ABG pH 7.499 H ABG pH POC ABG pCO2 29.1 L POC ABG pO2 ABG pO2 ABG Base Excess ABG Hemoglobin Oxyhemoglobin Sodium 135 L Potassium Chloride Carbon Dioxide BUN 28 H Creatinine 4.0 H Glucose 140 H POC Glucose Calcium 8.0 L Phosphorus 1.70 L Magnesium 1.60 L AST ALT Alkaline Phosphatase Troponin T C-Reactive Protein Total Protein Albumin Triglycerides HDL Cholesterol Miscellaneous Test Crossmatch 08/20/17 08/20/17 08/20/17 05:02 12:05 13:12 WBC RBC Hgb Hct MCV MCH RDW Plt Count Lymph % (Auto) [place] % (Auto) [place] # Seg Neutrophils % Seg Neuts % (Manual) Lymphocytes % (Manual) Monocytes % (Manual) Nucleated RBC % Seg Neutrophils # Seg Neutrophils # Man Lymphocytes # (Manual) Monocytes # (Manual) Eosinophils # (Manual) Basophils # (Manual) PT INR POC ABG pH 7.537 H ABG pH POC ABG pCO2 27.9 L POC ABG pO2 79 L ABG pO2 ABG Base Excess ABG Hemoglobin Oxyhemoglobin Sodium Potassium Chloride Carbon Dioxide BUN Creatinine Glucose POC Glucose 158 H 203 H Calcium Phosphorus Magnesium AST ALT Alkaline Phosphatase Troponin T C-Reactive Protein Total Protein Albumin Triglycerides HDL Cholesterol Miscellaneous Test Crossmatch 08/20/17 08/21/17 08/21/17 17:13 00:47 03:14 WBC RBC Hgb Hct MCV MCH RDW Plt Count Lymph % (Auto) [place] % (Auto) [place] # Seg Neutrophils % Seg Neuts % (Manual) Lymphocytes % (Manual) Monocytes % (Manual) Nucleated RBC % Seg Neutrophils # Seg Neutrophils # Man Lymphocytes # (Manual) Monocytes # (Manual) Eosinophils # (Manual) Basophils # (Manual) PT INR POC ABG pH 7.481 H ABG pH POC ABG pCO2 29.6 L POC ABG pO2 ABG pO2 ABG Base Excess ABG Hemoglobin Oxyhemoglobin Sodium Potassium Chloride Carbon Dioxide BUN Creatinine Glucose POC Glucose 188 H 109 H Calcium Phosphorus Magnesium AST ALT Alkaline Phosphatase Troponin T C-Reactive Protein Total Protein Albumin Triglycerides HDL Cholesterol Miscellaneous Test Crossmatch 08/21/17 08/21/17 08/21/17 05:05 06:50 06:50 WBC 44.7 H* RBC 2.41 L Hgb 7.1 L Hct 22.1 L MCV MCH RDW 18.3 H Plt Count Lymph % (Auto) [place] % (Auto) [place] # Seg Neutrophils % Seg Neuts % (Manual) 89.0 H Lymphocytes % (Manual) 0 L Monocytes % (Manual) Nucleated RBC % 1.0 H Seg Neutrophils # Seg Neutrophils # Man 39.8 H Lymphocytes # (Manual) 0.0 L Monocytes # (Manual) 1.3 H Eosinophils # (Manual) Basophils # (Manual) PT INR POC ABG pH ABG pH POC ABG pCO2 POC ABG pO2 ABG pO2 ABG Base Excess ABG Hemoglobin Oxyhemoglobin Sodium 135 L Potassium Chloride Carbon Dioxide BUN 39 H Creatinine 4.4 H Glucose 147 H POC Glucose 166 H Calcium 8.1 L Phosphorus Magnesium AST ALT < 5 L Alkaline Phosphatase 164 H Troponin T C-Reactive Protein Total Protein 4.7 L Albumin 1.4 L Triglycerides HDL Cholesterol Miscellaneous Test Crossmatch 08/21/17 08/21/17 08/21/17 08:00 12:21 17:02 WBC RBC Hgb Hct MCV MCH RDW Plt Count Lymph % (Auto) [place] % (Auto) [place] # Seg Neutrophils % Seg Neuts % (Manual) Lymphocytes % (Manual) Monocytes % (Manual) Nucleated RBC % Seg Neutrophils # Seg Neutrophils # Man Lymphocytes # (Manual) Monocytes # (Manual) Eosinophils # (Manual) Basophils # (Manual) PT INR POC ABG pH ABG pH POC ABG pCO2 POC ABG pO2 ABG pO2 ABG Base Excess ABG Hemoglobin Oxyhemoglobin Sodium Potassium Chloride Carbon Dioxide BUN Creatinine Glucose POC Glucose 147 H 135 H Calcium Phosphorus Magnesium AST ALT Alkaline Phosphatase Troponin T C-Reactive Protein Total Protein Albumin Triglycerides HDL Cholesterol Miscellaneous Test Crossmatch See Detail 08/21/17 08/22/17 08/22/17 23:38 03:40 03:40 WBC 42.5 H* RBC 2.88 L Hgb 8.5 L Hct 26.3 L MCV MCH RDW 17.9 H Plt Count Lymph % (Auto) [place] % (Auto) [place] # Seg Neutrophils % Seg Neuts % (Manual) Lymphocytes % (Manual) 5.0 L Monocytes % (Manual) Nucleated RBC % Seg Neutrophils # Seg Neutrophils # Man 19.6 H Lymphocytes # (Manual) Monocytes # (Manual) 2.6 H Eosinophils # (Manual) Basophils # (Manual) PT INR POC ABG pH ABG pH POC ABG pCO2 POC ABG pO2 ABG pO2 ABG Base Excess ABG Hemoglobin Oxyhemoglobin Sodium Potassium 3.3 L D Chloride Carbon Dioxide BUN 27 H Creatinine 2.9 H Glucose 144 H POC Glucose 251 H Calcium 8.0 L Phosphorus 2.40 L Magnesium AST ALT Alkaline Phosphatase Troponin T C-Reactive Protein Total Protein Albumin Triglycerides HDL Cholesterol Miscellaneous Test Crossmatch 08/22/17 08/22/17 08/22/17 06:37 08:50 11:25 WBC RBC Hgb Hct MCV MCH RDW Plt Count Lymph % (Auto) [place] % (Auto) [place] # Seg Neutrophils % Seg Neuts % (Manual) Lymphocytes % (Manual) Monocytes % (Manual) Nucleated RBC % Seg Neutrophils # Seg Neutrophils # Man Lymphocytes # (Manual) Monocytes # (Manual) Eosinophils # (Manual) Basophils # (Manual) PT INR POC ABG pH ABG pH POC ABG pCO2 POC ABG pO2 ABG pO2 ABG Base Excess ABG Hemoglobin Oxyhemoglobin Sodium Potassium Chloride Carbon Dioxide BUN Creatinine Glucose POC Glucose 152 H 175 H Calcium Phosphorus Magnesium AST ALT Alkaline Phosphatase Troponin T C-Reactive Protein Total Protein Albumin Triglycerides HDL Cholesterol Miscellaneous Test Flexitest 1 H Crossmatch 08/22/17 08/22/17 08/22/17 16:25 17:56 23:03 WBC RBC Hgb Hct MCV MCH RDW Plt Count Lymph % (Auto) [place] % (Auto) [place] # Seg Neutrophils % Seg Neuts % (Manual) Lymphocytes % (Manual) Monocytes % (Manual) Nucleated RBC % Seg Neutrophils # Seg Neutrophils # Man Lymphocytes # (Manual) Monocytes # (Manual) Eosinophils # (Manual) Basophils # (Manual) PT INR POC ABG pH ABG pH POC ABG pCO2 POC ABG pO2 ABG pO2 ABG Base Excess ABG Hemoglobin Oxyhemoglobin Sodium Potassium Chloride Carbon Dioxide BUN Creatinine Glucose POC Glucose 232 H 192 H Calcium Phosphorus Magnesium AST ALT Alkaline Phosphatase Troponin T C-Reactive Protein 30.70 H Total Protein Albumin Triglycerides HDL Cholesterol Miscellaneous Test Crossmatch 08/23/17 08/23/17 08/23/17 05:36 08:50 12:14 WBC RBC Hgb Hct MCV MCH RDW Plt Count Lymph % (Auto) [place] % (Auto) [place] # Seg Neutrophils % Seg Neuts % (Manual) Lymphocytes % (Manual) Monocytes % (Manual) Nucleated RBC % Seg Neutrophils # Seg Neutrophils # Man Lymphocytes # (Manual) Monocytes # (Manual) Eosinophils # (Manual) Basophils # (Manual) PT INR POC ABG pH ABG pH POC ABG pCO2 POC ABG pO2 ABG pO2 ABG Base Excess ABG Hemoglobin Oxyhemoglobin Sodium Potassium Chloride 107.1 H Carbon Dioxide BUN 49 H Creatinine 3.3 H Glucose 172 H POC Glucose 206 H 238 H Calcium Phosphorus Magnesium 2.40 H AST ALT Alkaline Phosphatase Troponin T C-Reactive Protein Total Protein Albumin Triglycerides HDL Cholesterol Miscellaneous Test Crossmatch 08/23/17 08/23/17 08/24/17 17:21 23:13 04:00 WBC 34.2 H RBC 2.86 L Hgb 8.4 L Hct 25.9 L MCV MCH RDW 17.9 H Plt Count Lymph % (Auto) [place] % (Auto) [place] # Seg Neutrophils % Seg Neuts % (Manual) 85.0 H Lymphocytes % (Manual) 0.5 L Monocytes % (Manual) Nucleated RBC % 1.0 H Seg Neutrophils # Seg Neutrophils # Man 29.1 H Lymphocytes # (Manual) 0.2 L Monocytes # (Manual) 2.4 H Eosinophils # (Manual) Basophils # (Manual) PT INR POC ABG pH ABG pH POC ABG pCO2 POC ABG pO2 ABG pO2 ABG Base Excess ABG Hemoglobin Oxyhemoglobin Sodium Potassium Chloride Carbon Dioxide BUN Creatinine Glucose POC Glucose 226 H 183 H Calcium Phosphorus Magnesium AST ALT Alkaline Phosphatase Troponin T C-Reactive Protein Total Protein Albumin Triglycerides HDL Cholesterol Miscellaneous Test Crossmatch 08/24/17 08/24/17 08/24/17 05:06 09:30 12:04 WBC RBC Hgb Hct MCV MCH RDW Plt Count Lymph % (Auto) [place] % (Auto) [place] # Seg Neutrophils % Seg Neuts % (Manual) Lymphocytes % (Manual) Monocytes % (Manual) Nucleated RBC % Seg Neutrophils # Seg Neutrophils # Man Lymphocytes # (Manual) Monocytes # (Manual) Eosinophils # (Manual) Basophils # (Manual) PT INR POC ABG pH ABG pH POC ABG pCO2 POC ABG pO2 ABG pO2 ABG Base Excess ABG Hemoglobin Oxyhemoglobin Sodium Potassium Chloride Carbon Dioxide BUN 46 H Creatinine 2.5 H Glucose 176 H POC Glucose 201 H 181 H Calcium Phosphorus Magnesium AST ALT Alkaline Phosphatase Troponin T C-Reactive Protein Total Protein Albumin Triglycerides HDL Cholesterol Miscellaneous Test Crossmatch 08/24/17 08/24/17 08/25/17 18:04 23:05 05:05 WBC RBC Hgb Hct MCV MCH RDW Plt Count Lymph % (Auto) [place] % (Auto) [place] # Seg Neutrophils % Seg Neuts % (Manual) Lymphocytes % (Manual) Monocytes % (Manual) Nucleated RBC % Seg Neutrophils # Seg Neutrophils # Man Lymphocytes # (Manual) Monocytes # (Manual) Eosinophils # (Manual) Basophils # (Manual) PT INR POC ABG pH ABG pH POC ABG pCO2 POC ABG pO2 ABG pO2 ABG Base Excess ABG Hemoglobin Oxyhemoglobin Sodium Potassium Chloride Carbon Dioxide BUN Creatinine Glucose POC Glucose 189 H 175 H 190 H Calcium Phosphorus Magnesium AST ALT Alkaline Phosphatase Troponin T C-Reactive Protein Total Protein Albumin Triglycerides HDL Cholesterol Miscellaneous Test Crossmatch 08/25/17 08/25/17 08/26/17 07:02 11:53 05:30 WBC 33.5 H RBC 2.47 L Hgb 7.3 L Hct 23.0 L MCV MCH RDW 21.3 H Plt Count Lymph % (Auto) [place] % (Auto) [place] # Seg Neutrophils % Seg Neuts % (Manual) 92.0 H Lymphocytes % (Manual) 1.0 L Monocytes % (Manual) Nucleated RBC % Seg Neutrophils # Seg Neutrophils # Man 30.8 H Lymphocytes # (Manual) 0.3 L Monocytes # (Manual) Eosinophils # (Manual) Basophils # (Manual) PT INR POC ABG pH ABG pH POC ABG pCO2 POC ABG pO2 ABG pO2 ABG Base Excess ABG Hemoglobin Oxyhemoglobin Sodium Potassium Chloride Carbon Dioxide BUN 32 H Creatinine 5.0 H D Glucose 117 H POC Glucose 191 H Calcium 8.0 L Phosphorus Magnesium AST ALT Alkaline Phosphatase Troponin T C-Reactive Protein Total Protein Albumin Triglycerides HDL Cholesterol Miscellaneous Test Crossmatch 08/26/17 08/26/17 08/26/17 05:30 06:44 13:26 WBC RBC Hgb Hct MCV MCH RDW Plt Count Lymph % (Auto) [place] % (Auto) [place] # Seg Neutrophils % Seg Neuts % (Manual) Lymphocytes % (Manual) Monocytes % (Manual) Nucleated RBC % Seg Neutrophils # Seg Neutrophils # Man Lymphocytes # (Manual) Monocytes # (Manual) Eosinophils # (Manual) Basophils # (Manual) PT INR POC ABG pH ABG pH POC ABG pCO2 POC ABG pO2 ABG pO2 ABG Base Excess ABG Hemoglobin Oxyhemoglobin Sodium Potassium 5.2 H Chloride Carbon Dioxide BUN 80 H Creatinine 3.4 H Glucose 193 H POC Glucose 232 H 207 H Calcium 8.3 L Phosphorus 6.80 H D Magnesium 2.60 H AST 135 H ALT Alkaline Phosphatase 211 H Troponin T C-Reactive Protein Total Protein 4.8 L Albumin 2.0 L Triglycerides HDL Cholesterol Miscellaneous Test Crossmatch 08/27/17 08/27/17 08/27/17 01:08 06:20 06:20 WBC 35.0 H RBC 2.75 L Hgb 8.4 L Hct 25.1 L MCV MCH RDW 21.8 H Plt Count Lymph % (Auto) [place] % (Auto) [place] # Seg Neutrophils % Seg Neuts % (Manual) Lymphocytes % (Manual) 4.5 L Monocytes % (Manual) Nucleated RBC % Seg Neutrophils # Seg Neutrophils # Man 31.9 H Lymphocytes # (Manual) Monocytes # (Manual) 1.2 H Eosinophils # (Manual) Basophils # (Manual) PT INR POC ABG pH ABG pH POC ABG pCO2 POC ABG pO2 ABG pO2 ABG Base Excess ABG Hemoglobin Oxyhemoglobin Sodium Potassium Chloride Carbon Dioxide BUN 61 H Creatinine 2.6 H Glucose 184 H POC Glucose 146 H Calcium Phosphorus 4.90 H D Magnesium AST ALT Alkaline Phosphatase Troponin T C-Reactive Protein Total Protein Albumin Triglycerides HDL Cholesterol Miscellaneous Test Crossmatch 08/27/17 08/27/17 08/27/17 07:01 09:17 12:52 WBC RBC Hgb Hct MCV MCH RDW Plt Count Lymph % (Auto) [place] % (Auto) [place] # Seg Neutrophils % Seg Neuts % (Manual) Lymphocytes % (Manual) Monocytes % (Manual) Nucleated RBC % Seg Neutrophils # Seg Neutrophils # Man Lymphocytes # (Manual) Monocytes # (Manual) Eosinophils # (Manual) Basophils # (Manual) PT INR POC ABG pH ABG pH POC ABG pCO2 POC ABG pO2 ABG pO2 ABG Base Excess ABG Hemoglobin Oxyhemoglobin Sodium Potassium Chloride Carbon Dioxide BUN Creatinine Glucose POC Glucose 165 H 198 H 218 H Calcium Phosphorus Magnesium AST ALT Alkaline Phosphatase Troponin T C-Reactive Protein Total Protein Albumin Triglycerides HDL Cholesterol Miscellaneous Test Crossmatch 08/27/17 08/28/17 08/28/17 17:27 02:13 06:46 WBC RBC Hgb Hct MCV MCH RDW Plt Count Lymph % (Auto) [place] % (Auto) [place] # Seg Neutrophils % Seg Neuts % (Manual) Lymphocytes % (Manual) Monocytes % (Manual) Nucleated RBC % Seg Neutrophils # Seg Neutrophils # Man Lymphocytes # (Manual) Monocytes # (Manual) Eosinophils # (Manual) Basophils # (Manual) PT INR POC ABG pH ABG pH POC ABG pCO2 POC ABG pO2 ABG pO2 ABG Base Excess ABG Hemoglobin Oxyhemoglobin Sodium Potassium Chloride Carbon Dioxide BUN Creatinine Glucose POC Glucose 151 H 155 H 230 H Calcium Phosphorus Magnesium AST ALT Alkaline Phosphatase Troponin T C-Reactive Protein Total Protein Albumin Triglycerides HDL Cholesterol Miscellaneous Test Crossmatch 08/28/17 08/28/17 08/28/17 06:53 06:53 08:19 WBC 31.1 H RBC 2.26 L Hgb 6.8 L Hct 20.9 L MCV MCH RDW 21.7 H Plt Count Lymph % (Auto) [place] % (Auto) [place] # Seg Neutrophils % Seg Neuts % (Manual) 83.0 H Lymphocytes % (Manual) 4.0 L Monocytes % (Manual) Nucleated RBC % Seg Neutrophils # Seg Neutrophils # Man 25.8 H Lymphocytes # (Manual) Monocytes # (Manual) Eosinophils # (Manual) Basophils # (Manual) PT INR POC ABG pH ABG pH POC ABG pCO2 POC ABG pO2 ABG pO2 ABG Base Excess ABG Hemoglobin Oxyhemoglobin Sodium Potassium Chloride Carbon Dioxide BUN 81 H Creatinine 3.4 H Glucose 218 H POC Glucose 239 H Calcium Phosphorus 4.90 H Magnesium AST ALT Alkaline Phosphatase Troponin T C-Reactive Protein Total Protein Albumin Triglycerides HDL Cholesterol Miscellaneous Test Crossmatch 08/28/17 08/28/17 08/28/17 11:56 13:05 13:29 WBC RBC Hgb Hct MCV MCH RDW Plt Count Lymph % (Auto) [place] % (Auto) [place] # Seg Neutrophils % Seg Neuts % (Manual) Lymphocytes % (Manual) Monocytes % (Manual) Nucleated RBC % Seg Neutrophils # Seg Neutrophils # Man Lymphocytes # (Manual) Monocytes # (Manual) Eosinophils # (Manual) Basophils # (Manual) PT 16.7 H INR 1.29 H POC ABG pH ABG pH POC ABG pCO2 POC ABG pO2 338 H ABG pO2 ABG Base Excess ABG Hemoglobin Oxyhemoglobin Sodium Potassium Chloride Carbon Dioxide BUN Creatinine Glucose POC Glucose Calcium Phosphorus Magnesium AST ALT Alkaline Phosphatase Troponin T C-Reactive Protein Total Protein Albumin Triglycerides HDL Cholesterol Miscellaneous Test Crossmatch See Detail 08/28/17 08/28/17 08/29/17 16:22 19:20 04:24 WBC RBC Hgb Hct MCV MCH RDW Plt Count Lymph % (Auto) [place] % (Auto) [place] # Seg Neutrophils % Seg Neuts % (Manual) Lymphocytes % (Manual) Monocytes % (Manual) Nucleated RBC % Seg Neutrophils # Seg Neutrophils # Man Lymphocytes # (Manual) Monocytes # (Manual) Eosinophils # (Manual) Basophils # (Manual) PT INR POC ABG pH 7.469 H ABG pH POC ABG pCO2 POC ABG pO2 240 H ABG pO2 ABG Base Excess ABG Hemoglobin Oxyhemoglobin Sodium Potassium Chloride Carbon Dioxide BUN Creatinine Glucose POC Glucose 209 H 195 H Calcium Phosphorus Magnesium AST ALT Alkaline Phosphatase Troponin T C-Reactive Protein Total Protein Albumin Triglycerides HDL Cholesterol Miscellaneous Test Crossmatch 08/29/17 08/29/17 08/29/17 04:30 04:30 12:07 WBC 44.9 H* RBC Hgb Hct MCV MCH RDW 23.1 H Plt Count Lymph % (Auto) [place] % (Auto) [place] # Seg Neutrophils % Seg Neuts % (Manual) 38.0 L Lymphocytes % (Manual) 10.0 L Monocytes % (Manual) 10.0 H Nucleated RBC % 6.0 H Seg Neutrophils # Seg Neutrophils # Man 17.1 H Lymphocytes # (Manual) Monocytes # (Manual) 4.5 H Eosinophils # (Manual) Basophils # (Manual) PT INR POC ABG pH ABG pH POC ABG pCO2 POC ABG pO2 ABG pO2 ABG Base Excess ABG Hemoglobin Oxyhemoglobin Sodium Potassium Chloride Carbon Dioxide BUN 61 H Creatinine 2.4 H Glucose 226 H POC Glucose 200 H Calcium Phosphorus Magnesium AST ALT Alkaline Phosphatase Troponin T C-Reactive Protein Total Protein Albumin Triglycerides HDL Cholesterol Miscellaneous Test Crossmatch 08/29/17 08/29/17 08/29/17 12:30 12:30 17:23 WBC RBC Hgb Hct MCV MCH RDW Plt Count Lymph % (Auto) [place] % (Auto) [place] # Seg Neutrophils % Seg Neuts % (Manual) Lymphocytes % (Manual) Monocytes % (Manual) Nucleated RBC % Seg Neutrophils # Seg Neutrophils # Man Lymphocytes # (Manual) Monocytes # (Manual) Eosinophils # (Manual) Basophils # (Manual) PT INR POC ABG pH ABG pH POC ABG pCO2 POC ABG pO2 ABG pO2 ABG Base Excess ABG Hemoglobin Oxyhemoglobin Sodium Potassium Chloride Carbon Dioxide BUN Creatinine Glucose POC Glucose 270 H Calcium Phosphorus Magnesium AST ALT Alkaline Phosphatase Troponin T C-Reactive Protein 19.10 H Total Protein Albumin Triglycerides HDL Cholesterol Miscellaneous Test Flexitest 1 H Crossmatch 08/30/17 08/30/17 08/30/17 00:10 01:30 03:31 WBC RBC Hgb Hct MCV MCH RDW Plt Count Lymph % (Auto) [place] % (Auto) [place] # Seg Neutrophils % Seg Neuts % (Manual) Lymphocytes % (Manual) Monocytes % (Manual) Nucleated RBC % Seg Neutrophils # Seg Neutrophils # Man Lymphocytes # (Manual) Monocytes # (Manual) Eosinophils # (Manual) Basophils # (Manual) PT INR POC ABG pH 7.168 L 7.335 L ABG pH POC ABG pCO2 72.8 H POC ABG pO2 257 H 117 H ABG pO2 ABG Base Excess ABG Hemoglobin Oxyhemoglobin Sodium Potassium Chloride Carbon Dioxide BUN Creatinine Glucose POC Glucose 245 H Calcium Phosphorus Magnesium AST ALT Alkaline Phosphatase Troponin T C-Reactive Protein Total Protein Albumin Triglycerides HDL Cholesterol Miscellaneous Test Crossmatch 08/30/17 08/30/17 08/30/17 05:20 05:20 05:20 WBC 40.9 H* RBC 3.64 L Hgb Hct MCV MCH RDW 24.3 H Plt Count Lymph % (Auto) [place] % (Auto) [place] # Seg Neutrophils % Seg Neuts % (Manual) 80.0 H Lymphocytes % (Manual) 3.0 L Monocytes % (Manual) Nucleated RBC % 1.0 H Seg Neutrophils # Seg Neutrophils # Man 32.7 H Lymphocytes # (Manual) Monocytes # (Manual) Eosinophils # (Manual) Basophils # (Manual) PT INR POC ABG pH ABG pH POC ABG pCO2 POC ABG pO2 ABG pO2 ABG Base Excess ABG Hemoglobin Oxyhemoglobin Sodium Potassium Chloride Carbon Dioxide BUN 83 H Creatinine 2.9 H Glucose 334 H POC Glucose 309 H Calcium Phosphorus Magnesium AST ALT Alkaline Phosphatase Troponin T C-Reactive Protein Total Protein Albumin Triglycerides HDL Cholesterol Miscellaneous Test Crossmatch 08/30/17 08/30/17 08/31/17 12:18 17:36 00:17 WBC RBC Hgb Hct MCV MCH RDW Plt Count Lymph % (Auto) [place] % (Auto) [place] # Seg Neutrophils % Seg Neuts % (Manual) Lymphocytes % (Manual) Monocytes % (Manual) Nucleated RBC % Seg Neutrophils # Seg Neutrophils # Man Lymphocytes # (Manual) Monocytes # (Manual) Eosinophils # (Manual) Basophils # (Manual) PT INR POC ABG pH ABG pH POC ABG pCO2 POC ABG pO2 ABG pO2 ABG Base Excess ABG Hemoglobin Oxyhemoglobin Sodium Potassium Chloride Carbon Dioxide BUN Creatinine Glucose POC Glucose 273 H 293 H 360 H Calcium Phosphorus Magnesium AST ALT Alkaline Phosphatase Troponin T C-Reactive Protein Total Protein Albumin Triglycerides HDL Cholesterol Miscellaneous Test Crossmatch 08/31/17 08/31/17 08/31/17 05:30 05:30 05:32 WBC 29.9 H RBC 2.89 L Hgb 8.2 L Hct 24.7 L D MCV MCH RDW 24.4 H Plt Count Lymph % (Auto) [place] % (Auto) [place] # Seg Neutrophils % Seg Neuts % (Manual) Lymphocytes % (Manual) 2.0 L Monocytes % (Manual) Nucleated RBC % 2.0 H Seg Neutrophils # Seg Neutrophils # Man 18.5 H Lymphocytes # (Manual) 0.6 L Monocytes # (Manual) 0.9 H Eosinophils # (Manual) Basophils # (Manual) PT INR POC ABG pH ABG pH POC ABG pCO2 POC ABG pO2 ABG pO2 ABG Base Excess ABG Hemoglobin Oxyhemoglobin Sodium Potassium Chloride Carbon Dioxide BUN 62 H Creatinine 2.2 H Glucose 245 H POC Glucose 257 H Calcium Phosphorus 2.10 L D Magnesium 1.60 L AST ALT Alkaline Phosphatase Troponin T C-Reactive Protein Total Protein Albumin Triglycerides HDL Cholesterol Miscellaneous Test Crossmatch 08/31/17 08/31/17 08/31/17 11:56 12:05 18:14 WBC 32.5 H RBC 3.19 L Hgb 8.8 L Hct 27.9 L MCV MCH RDW 24.9 H Plt Count Lymph % (Auto) [place] % (Auto) [place] # Seg Neutrophils % Seg Neuts % (Manual) Lymphocytes % (Manual) 1.0 L Monocytes % (Manual) 12.0 H Nucleated RBC % 1.0 H Seg Neutrophils # Seg Neutrophils # Man 13.3 H Lymphocytes # (Manual) 0.3 L Monocytes # (Manual) 3.9 H Eosinophils # (Manual) Basophils # (Manual) PT INR POC ABG pH ABG pH POC ABG pCO2 POC ABG pO2 ABG pO2 ABG Base Excess ABG Hemoglobin Oxyhemoglobin Sodium Potassium Chloride Carbon Dioxide BUN Creatinine Glucose POC Glucose 245 H Calcium Phosphorus Magnesium AST ALT Alkaline Phosphatase Troponin T C-Reactive Protein Total Protein Albumin Triglycerides HDL Cholesterol Miscellaneous Test Crossmatch See Detail 08/31/17 08/31/17 08/31/17 18:14 18:15 23:53 WBC RBC Hgb Hct MCV MCH RDW Plt Count Lymph % (Auto) [place] % (Auto) [place] # Seg Neutrophils % Seg Neuts % (Manual) Lymphocytes % (Manual) Monocytes % (Manual) Nucleated RBC % Seg Neutrophils # Seg Neutrophils # Man Lymphocytes # (Manual) Monocytes # (Manual) Eosinophils # (Manual) Basophils # (Manual) PT 15.1 H INR POC ABG pH ABG pH POC ABG pCO2 POC ABG pO2 ABG pO2 ABG Base Excess ABG Hemoglobin Oxyhemoglobin Sodium 136 L Potassium Chloride Carbon Dioxide 21 L BUN 69 H Creatinine 2.3 H Glucose 227 H POC Glucose 301 H Calcium Phosphorus 2.40 L Magnesium 1.50 L AST 143 H ALT 114 H Alkaline Phosphatase 267 H Troponin T C-Reactive Protein Total Protein 4.1 L Albumin 1.8 L Triglycerides HDL Cholesterol Miscellaneous Test Crossmatch 09/01/17 09/01/17 09/01/17 05:00 05:00 05:20 WBC 33.9 H RBC 2.85 L Hgb 7.8 L Hct 24.8 L MCV MCH 27 L RDW 23.9 H Plt Count Lymph % (Auto) [place] % (Auto) [place] # Seg Neutrophils % Seg Neuts % (Manual) Lymphocytes % (Manual) 5.0 L Monocytes % (Manual) Nucleated RBC % Seg Neutrophils # Seg Neutrophils # Man 23.1 H Lymphocytes # (Manual) Monocytes # (Manual) Eosinophils # (Manual) Basophils # (Manual) PT INR POC ABG pH ABG pH 7.348 L POC ABG pCO2 POC ABG pO2 ABG pO2 70.2 L ABG Base Excess ABG Hemoglobin 7.5 L Oxyhemoglobin Sodium Potassium Chloride Carbon Dioxide BUN 51 H Creatinine 1.8 H Glucose 195 H POC Glucose Calcium Phosphorus 1.70 L D Magnesium 1.60 L AST 80 H ALT 82 H Alkaline Phosphatase 243 H Troponin T C-Reactive Protein Total Protein 4.2 L Albumin 1.7 L Triglycerides HDL Cholesterol Miscellaneous Test Crossmatch 09/01/17 09/01/17 09/01/17 05:47 11:37 17:39 WBC RBC Hgb Hct MCV MCH RDW Plt Count Lymph % (Auto) [place] % (Auto) [place] # Seg Neutrophils % Seg Neuts % (Manual) Lymphocytes % (Manual) Monocytes % (Manual) Nucleated RBC % Seg Neutrophils # Seg Neutrophils # Man Lymphocytes # (Manual) Monocytes # (Manual) Eosinophils # (Manual) Basophils # (Manual) PT INR POC ABG pH ABG pH POC ABG pCO2 POC ABG pO2 ABG pO2 ABG Base Excess ABG Hemoglobin Oxyhemoglobin Sodium Potassium Chloride Carbon Dioxide BUN Creatinine Glucose POC Glucose 230 H 254 H 297 H Calcium Phosphorus Magnesium AST ALT Alkaline Phosphatase Troponin T C-Reactive Protein Total Protein Albumin Triglycerides HDL Cholesterol Miscellaneous Test Crossmatch 09/01/17 09/02/17 09/02/17 23:14 04:55 05:31 WBC RBC Hgb Hct MCV MCH RDW Plt Count Lymph % (Auto) [place] % (Auto) [place] # Seg Neutrophils % Seg Neuts % (Manual) Lymphocytes % (Manual) Monocytes % (Manual) Nucleated RBC % Seg Neutrophils # Seg Neutrophils # Man Lymphocytes # (Manual) Monocytes # (Manual) Eosinophils # (Manual) Basophils # (Manual) PT INR POC ABG pH ABG pH POC ABG pCO2 POC ABG pO2 ABG pO2 124.8 H ABG Base Excess -2.9 L ABG Hemoglobin 5.8 L Oxyhemoglobin Sodium Potassium Chloride Carbon Dioxide BUN Creatinine Glucose POC Glucose 291 H 245 H Calcium Phosphorus Magnesium AST ALT Alkaline Phosphatase Troponin T C-Reactive Protein Total Protein Albumin Triglycerides HDL Cholesterol Miscellaneous Test Crossmatch 09/02/17 09/02/17 09/02/17 06:10 11:58 15:37 WBC RBC Hgb Hct MCV MCH RDW Plt Count Lymph % (Auto) [place] % (Auto) [place] # Seg Neutrophils % Seg Neuts % (Manual) Lymphocytes % (Manual) Monocytes % (Manual) Nucleated RBC % Seg Neutrophils # Seg Neutrophils # Man Lymphocytes # (Manual) Monocytes # (Manual) Eosinophils # (Manual) Basophils # (Manual) PT INR POC ABG pH ABG pH POC ABG pCO2 POC ABG pO2 ABG pO2 ABG Base Excess ABG Hemoglobin Oxyhemoglobin Sodium Potassium Chloride Carbon Dioxide BUN 68 H Creatinine 2.2 H Glucose 369 H POC Glucose 333 H 314 H Calcium 8.2 L Phosphorus Magnesium AST ALT Alkaline Phosphatase Troponin T C-Reactive Protein Total Protein Albumin Triglycerides HDL Cholesterol Miscellaneous Test Crossmatch 09/02/17 09/03/17 09/03/17 23:50 04:00 05:00 WBC 41.5 H* RBC 2.46 L Hgb 6.9 L Hct 21.3 L MCV MCH RDW 24.9 H Plt Count Lymph % (Auto) [place] % (Auto) [place] # Seg Neutrophils % Seg Neuts % (Manual) Lymphocytes % (Manual) 3.0 L Monocytes % (Manual) 9.5 H Nucleated RBC % 1.5 H Seg Neutrophils # Seg Neutrophils # Man 28.8 H Lymphocytes # (Manual) Monocytes # (Manual) 3.9 H Eosinophils # (Manual) Basophils # (Manual) PT INR POC ABG pH ABG pH POC ABG pCO2 POC ABG pO2 ABG pO2 ABG Base Excess ABG Hemoglobin Oxyhemoglobin Sodium Potassium Chloride Carbon Dioxide BUN 59 H Creatinine 1.9 H Glucose 231 H POC Glucose 240 H Calcium 8.0 L Phosphorus Magnesium AST ALT Alkaline Phosphatase 265 H Troponin T C-Reactive Protein Total Protein 4.4 L Albumin 1.7 L Triglycerides 180 H HDL Cholesterol Miscellaneous Test Crossmatch 09/03/17 09/03/17 09/03/17 05:32 11:52 16:55 WBC RBC Hgb Hct MCV MCH RDW Plt Count Lymph % (Auto) [place] % (Auto) [place] # Seg Neutrophils % Seg Neuts % (Manual) Lymphocytes % (Manual) Monocytes % (Manual) Nucleated RBC % Seg Neutrophils # Seg Neutrophils # Man Lymphocytes # (Manual) Monocytes # (Manual) Eosinophils # (Manual) Basophils # (Manual) PT INR POC ABG pH ABG pH POC ABG pCO2 POC ABG pO2 ABG pO2 ABG Base Excess ABG Hemoglobin Oxyhemoglobin Sodium Potassium Chloride Carbon Dioxide BUN Creatinine Glucose POC Glucose 188 H 285 H Calcium Phosphorus Magnesium AST ALT Alkaline Phosphatase Troponin T C-Reactive Protein Total Protein Albumin Triglycerides HDL Cholesterol Miscellaneous Test Crossmatch See Detail 09/03/17 09/03/17 09/03/17 17:44 23:56 Unknown WBC RBC Hgb Hct MCV MCH RDW Plt Count Lymph % (Auto) [place] % (Auto) [place] # Seg Neutrophils % Seg Neuts % (Manual) Lymphocytes % (Manual) Monocytes % (Manual) Nucleated RBC % Seg Neutrophils # Seg Neutrophils # Man Lymphocytes # (Manual) Monocytes # (Manual) Eosinophils # (Manual) Basophils # (Manual) PT INR POC ABG pH ABG pH POC ABG pCO2 POC ABG pO2 ABG pO2 133.4 H ABG Base Excess ABG Hemoglobin 5.8 L Oxyhemoglobin Sodium Potassium Chloride Carbon Dioxide BUN Creatinine Glucose POC Glucose 217 H 193 H Calcium Phosphorus Magnesium AST ALT Alkaline Phosphatase Troponin T C-Reactive Protein Total Protein Albumin Triglycerides HDL Cholesterol Miscellaneous Test Crossmatch 09/04/17 09/04/17 09/04/17 03:47 04:32 04:32 WBC 44.7 H* RBC 3.12 L Hgb 8.7 L Hct 26.7 L MCV MCH RDW 23.5 H Plt Count Lymph % (Auto) [place] % (Auto) [place] # Seg Neutrophils % Seg Neuts % (Manual) Lymphocytes % (Manual) 4.0 L Monocytes % (Manual) Nucleated RBC % 2.0 H Seg Neutrophils # Seg Neutrophils # Man 30.8 H Lymphocytes # (Manual) Monocytes # (Manual) 2.2 H Eosinophils # (Manual) Basophils # (Manual) PT INR POC ABG pH ABG pH POC ABG pCO2 POC ABG pO2 ABG pO2 135.0 H ABG Base Excess -2.5 L ABG Hemoglobin 7.9 L Oxyhemoglobin Sodium 136 L Potassium 5.2 H D Chloride 94.2 L Carbon Dioxide BUN 71 H Creatinine 2.3 H Glucose 235 H POC Glucose Calcium 8.3 L Phosphorus Magnesium AST ALT Alkaline Phosphatase Troponin T C-Reactive Protein Total Protein Albumin Triglycerides HDL Cholesterol Miscellaneous Test Crossmatch 09/04/17 09/04/17 09/04/17 05:48 10:43 12:38 WBC RBC Hgb Hct MCV MCH RDW Plt Count Lymph % (Auto) [place] % (Auto) [place] # Seg Neutrophils % Seg Neuts % (Manual) Lymphocytes % (Manual) Monocytes % (Manual) Nucleated RBC % Seg Neutrophils # Seg Neutrophils # Man Lymphocytes # (Manual) Monocytes # (Manual) Eosinophils # (Manual) Basophils # (Manual) PT INR POC ABG pH ABG pH POC ABG pCO2 POC ABG pO2 ABG pO2 ABG Base Excess ABG Hemoglobin Oxyhemoglobin Sodium Potassium Chloride Carbon Dioxide BUN Creatinine Glucose POC Glucose 329 H 444 H Calcium Phosphorus Magnesium AST ALT Alkaline Phosphatase Troponin T C-Reactive Protein Total Protein Albumin Triglycerides HDL Cholesterol Miscellaneous Test Flexitest 1 H Crossmatch 09/04/17 09/05/17 09/05/17 17:30 00:15 03:55 WBC 35.3 H RBC 2.87 L Hgb 8.1 L Hct 24.6 L MCV MCH RDW 23.3 H Plt Count Lymph % (Auto) [place] % (Auto) [place] # Seg Neutrophils % Seg Neuts % (Manual) 89.5 H Lymphocytes % (Manual) 3.0 L Monocytes % (Manual) Nucleated RBC % 2.5 H Seg Neutrophils # Seg Neutrophils # Man 31.6 H Lymphocytes # (Manual) 1.1 L Monocytes # (Manual) Eosinophils # (Manual) Basophils # (Manual) PT INR POC ABG pH ABG pH POC ABG pCO2 POC ABG pO2 ABG pO2 ABG Base Excess ABG Hemoglobin Oxyhemoglobin Sodium Potassium Chloride Carbon Dioxide BUN Creatinine Glucose POC Glucose 331 H 362 H Calcium Phosphorus Magnesium AST ALT Alkaline Phosphatase Troponin T C-Reactive Protein Total Protein Albumin Triglycerides HDL Cholesterol Miscellaneous Test Crossmatch 09/05/17 09/05/17 09/05/17 03:55 12:12 14:32 WBC RBC Hgb Hct MCV MCH RDW Plt Count Lymph % (Auto) [place] % (Auto) [place] # Seg Neutrophils % Seg Neuts % (Manual) Lymphocytes % (Manual) Monocytes % (Manual) Nucleated RBC % Seg Neutrophils # Seg Neutrophils # Man Lymphocytes # (Manual) Monocytes # (Manual) Eosinophils # (Manual) Basophils # (Manual) PT INR POC ABG pH ABG pH POC ABG pCO2 POC ABG pO2 ABG pO2 ABG Base Excess ABG Hemoglobin Oxyhemoglobin Sodium 136 L Potassium Chloride 94.7 L Carbon Dioxide BUN 55 H Creatinine 1.8 H Glucose 193 H POC Glucose 344 H 265 H Calcium 8.1 L Phosphorus Magnesium AST ALT Alkaline Phosphatase Troponin T C-Reactive Protein Total Protein Albumin Triglycerides HDL Cholesterol Miscellaneous Test Crossmatch 09/05/17 09/05/17 09/05/17 15:32 16:41 17:28 WBC RBC Hgb Hct MCV MCH RDW Plt Count Lymph % (Auto) [place] % (Auto) [place] # Seg Neutrophils % Seg Neuts % (Manual) Lymphocytes % (Manual) Monocytes % (Manual) Nucleated RBC % Seg Neutrophils # Seg Neutrophils # Man Lymphocytes # (Manual) Monocytes # (Manual) Eosinophils # (Manual) Basophils # (Manual) PT INR POC ABG pH ABG pH POC ABG pCO2 POC ABG pO2 ABG pO2 ABG Base Excess ABG Hemoglobin Oxyhemoglobin Sodium Potassium Chloride Carbon Dioxide BUN Creatinine Glucose POC Glucose 145 H 188 H 246 H Calcium Phosphorus Magnesium AST ALT Alkaline Phosphatase Troponin T C-Reactive Protein Total Protein Albumin Triglycerides HDL Cholesterol Miscellaneous Test Crossmatch 09/05/17 09/05/17 09/05/17 18:38 20:10 21:06 WBC RBC Hgb Hct MCV MCH RDW Plt Count Lymph % (Auto) [place] % (Auto) [place] # Seg Neutrophils % Seg Neuts % (Manual) Lymphocytes % (Manual) Monocytes % (Manual) Nucleated RBC % Seg Neutrophils # Seg Neutrophils # Man Lymphocytes # (Manual) Monocytes # (Manual) Eosinophils # (Manual) Basophils # (Manual) PT INR POC ABG pH ABG pH POC ABG pCO2 POC ABG pO2 ABG pO2 ABG Base Excess ABG Hemoglobin Oxyhemoglobin Sodium Potassium Chloride Carbon Dioxide BUN Creatinine Glucose POC Glucose 271 H 165 H 134 H Calcium Phosphorus Magnesium AST ALT Alkaline Phosphatase Troponin T C-Reactive Protein Total Protein Albumin Triglycerides HDL Cholesterol Miscellaneous Test Crossmatch 09/05/17 09/06/17 09/06/17 23:07 00:10 01:08 WBC RBC Hgb Hct MCV MCH RDW Plt Count Lymph % (Auto) [place] % (Auto) [place] # Seg Neutrophils % Seg Neuts % (Manual) Lymphocytes % (Manual) Monocytes % (Manual) Nucleated RBC % Seg Neutrophils # Seg Neutrophils # Man Lymphocytes # (Manual) Monocytes # (Manual) Eosinophils # (Manual) Basophils # (Manual) PT INR POC ABG pH ABG pH POC ABG pCO2 POC ABG pO2 ABG pO2 ABG Base Excess ABG Hemoglobin Oxyhemoglobin Sodium Potassium Chloride Carbon Dioxide BUN Creatinine Glucose POC Glucose 135 H 147 H 133 H Calcium Phosphorus Magnesium AST ALT Alkaline Phosphatase Troponin T C-Reactive Protein Total Protein Albumin Triglycerides HDL Cholesterol Miscellaneous Test Crossmatch 09/06/17 09/06/17 09/06/17 02:01 03:08 05:30 WBC 38.6 H RBC 2.95 L Hgb 8.3 L Hct 25.3 L MCV MCH RDW 22.2 H Plt Count Lymph % (Auto) [place] % (Auto) [place] # Seg Neutrophils % Seg Neuts % (Manual) Lymphocytes % (Manual) 2.0 L Monocytes % (Manual) Nucleated RBC % 5.0 H Seg Neutrophils # Seg Neutrophils # Man 25.9 H Lymphocytes # (Manual) 0.8 L Monocytes # (Manual) 1.9 H Eosinophils # (Manual) Basophils # (Manual) PT INR POC ABG pH ABG pH POC ABG pCO2 POC ABG pO2 ABG pO2 ABG Base Excess ABG Hemoglobin Oxyhemoglobin Sodium Potassium Chloride Carbon Dioxide BUN Creatinine Glucose POC Glucose 146 H 135 H Calcium Phosphorus Magnesium AST ALT Alkaline Phosphatase Troponin T C-Reactive Protein Total Protein Albumin Triglycerides HDL Cholesterol Miscellaneous Test Crossmatch 09/06/17 09/06/17 09/06/17 05:30 05:30 05:48 WBC RBC Hgb Hct MCV MCH RDW Plt Count Lymph % (Auto) [place] % (Auto) [place] # Seg Neutrophils % Seg Neuts % (Manual) Lymphocytes % (Manual) Monocytes % (Manual) Nucleated RBC % Seg Neutrophils # Seg Neutrophils # Man Lymphocytes # (Manual) Monocytes # (Manual) Eosinophils # (Manual) Basophils # (Manual) PT INR POC ABG pH ABG pH POC ABG pCO2 POC ABG pO2 ABG pO2 ABG Base Excess ABG Hemoglobin Oxyhemoglobin Sodium 135 L Potassium Chloride 93.5 L Carbon Dioxide BUN 82 H Creatinine 2.3 H Glucose 148 H POC Glucose 152 H Calcium Phosphorus Magnesium AST ALT Alkaline Phosphatase Troponin T C-Reactive Protein 2.80 H Total Protein Albumin Triglycerides HDL Cholesterol Miscellaneous Test Crossmatch 09/06/17 09/06/17 09/06/17 08:04 09:06 10:19 WBC RBC Hgb Hct MCV MCH RDW Plt Count Lymph % (Auto) [place] % (Auto) [place] # Seg Neutrophils % Seg Neuts % (Manual) Lymphocytes % (Manual) Monocytes % (Manual) Nucleated RBC % Seg Neutrophils # Seg Neutrophils # Man Lymphocytes # (Manual) Monocytes # (Manual) Eosinophils # (Manual) Basophils # (Manual) PT INR POC ABG pH ABG pH POC ABG pCO2 POC ABG pO2 ABG pO2 ABG Base Excess ABG Hemoglobin Oxyhemoglobin Sodium Potassium Chloride Carbon Dioxide BUN Creatinine Glucose POC Glucose 164 H 172 H 186 H Calcium Phosphorus Magnesium AST ALT Alkaline Phosphatase Troponin T C-Reactive Protein Total Protein Albumin Triglycerides HDL Cholesterol Miscellaneous Test Crossmatch 09/06/17 09/06/17 09/06/17 10:57 13:12 13:40 WBC RBC Hgb 8.9 L Hct 28.5 L MCV MCH RDW Plt Count Lymph % (Auto) [place] % (Auto) [place] # Seg Neutrophils % Seg Neuts % (Manual) Lymphocytes % (Manual) Monocytes % (Manual) Nucleated RBC % Seg Neutrophils # Seg Neutrophils # Man Lymphocytes # (Manual) Monocytes # (Manual) Eosinophils # (Manual) Basophils # (Manual) PT INR POC ABG pH ABG pH POC ABG pCO2 POC ABG pO2 ABG pO2 ABG Base Excess ABG Hemoglobin Oxyhemoglobin Sodium Potassium Chloride Carbon Dioxide BUN Creatinine Glucose POC Glucose 162 H 166 H Calcium Phosphorus Magnesium AST ALT Alkaline Phosphatase Troponin T C-Reactive Protein Total Protein Albumin Triglycerides HDL Cholesterol Miscellaneous Test Crossmatch 09/06/17 09/07/17 09/07/17 17:36 00:13 03:50 WBC 47.0 H* RBC 2.81 L Hgb 8.1 L Hct 24.1 L MCV MCH RDW 22.5 H Plt Count Lymph % (Auto) [place] % (Auto) [place] # Seg Neutrophils % Seg Neuts % (Manual) Lymphocytes % (Manual) 9.0 L Monocytes % (Manual) Nucleated RBC % 6.0 H Seg Neutrophils # Seg Neutrophils # Man 27.3 H Lymphocytes # (Manual) Monocytes # (Manual) 0.9 H Eosinophils # (Manual) 1.9 H Basophils # (Manual) PT INR POC ABG pH ABG pH POC ABG pCO2 POC ABG pO2 ABG pO2 ABG Base Excess ABG Hemoglobin Oxyhemoglobin Sodium Potassium Chloride Carbon Dioxide BUN Creatinine Glucose POC Glucose 161 H 183 H Calcium Phosphorus Magnesium AST ALT Alkaline Phosphatase Troponin T C-Reactive Protein Total Protein Albumin Triglycerides HDL Cholesterol Miscellaneous Test Crossmatch 09/07/17 09/07/17 09/07/17 03:50 05:12 05:23 WBC RBC Hgb Hct MCV MCH RDW Plt Count Lymph % (Auto) [place] % (Auto) [place] # Seg Neutrophils % Seg Neuts % (Manual) Lymphocytes % (Manual) Monocytes % (Manual) Nucleated RBC % Seg Neutrophils # Seg Neutrophils # Man Lymphocytes # (Manual) Monocytes # (Manual) Eosinophils # (Manual) Basophils # (Manual) PT INR POC ABG pH ABG pH POC ABG pCO2 POC ABG pO2 ABG pO2 ABG Base Excess ABG Hemoglobin 7.7 L Oxyhemoglobin 94.8 L Sodium 136 L Potassium Chloride 96.3 L Carbon Dioxide BUN 61 H Creatinine 1.7 H Glucose 132 H POC Glucose 162 H Calcium 7.8 L Phosphorus Magnesium AST ALT Alkaline Phosphatase Troponin T C-Reactive Protein Total Protein Albumin Triglycerides HDL Cholesterol Miscellaneous Test Crossmatch
--- NOTE | 2017-09-07 13:13 | Progress Note ---
Assessment and Plan Assessment: 1) Sepsis with septic shock: increased levophed requirements, leukocytosis worsening today; new source ? GI bleed . Repeat CT no abscess no collection. -CRP= 34 -->30 -->19-->0.1 ->2.8 -procalcitonin=1.3 -->7.6 2) Bowel obstruction / suspect ?gastric perforation ? peritonitis -S/P Exlap, G-tube placement, EGD, abdominal washout and removal of PD -OR findings - bowel obstruction due to entanglement of PD cath, abscess cavity in LUQ and ? suspect perforation of unclear location 3) CA-UTI: chronic ivan exchanged every 4 weeks and ureteral stents in place which are exchanged every 6 months ? urine cultures still pending should r/o MDR bacteria 4) Paraplegia 5) ESRD on PD - no evidence of peritonitis, wbc count 2. RIBBON TIER and Diphteroids on peritoneal fluid likely contaminants. 6) Recent pancreatitis 7) Penicillin allergy-has taken keflex w/o problems 8) Presumed Surgical wound infection / dehiscence ? 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 Plan: -eval ? GI bleed and persistent need of pressors -continue zyvox and fluconazole day 5 of 10 -monitor leukocytosis -discussed with family prognosis guarded -trach on Saturday I will be covering the weekend Thank you Dr Baez for your consultation, will follow up with you. Ramya Lang MD Infectious Diseases Specialist [facility] ([facility]) M [phone] O [phone] Subjective Date of service: 09/07/17 Principal diagnosis: septic shock Interval history: Pt remains intubated on the vent on levophed at 15, on TPN, fentanyl, no fever. Microbiology: Blood cultures: 08/08 neg 08/12 neg 08/16 neg 08/20 neg 10/5 neg Urine cultures: 08/08 10-100K skin grace Respiratory cultures: 08/30 tracheal asp MRSA Wound cultures: 08/26 Staph aureus and Kristine 10/ MRSA, E faecalis, Kristine albicans Stool cultures: Other: 08/08 peritoneal fluid + RIBBON TIER/Diphteroids Current Antimicrobials: zyvox 09/03 fluconazole 09/03 Previous Antimicrobials: 08/10 levaquin 08/16 vancomycin 08/13 meropenem 08/16 fluconazole Micafungin 08/29 meropenem 08/29 Objective - Exam Narrative Exam: General appearance: sedated on vent Eyes: anicteric sclerae, moist conjunctivae; no lid-lag; PERRLA HENT: Atraumatic; limited OP ETT, NGT Neck: Trachea midline; supple, no thyromegaly or lymphadenopathy Lungs: coarse BS moreno CV: RRR, no murmurs Abdomen: soft, midline surgical wound with surtures. Gtube. drain Extremities: + peripheral edema + leg ulcer Skin: Normal temperature, turgor and texture; no rash, ulcers or subcutaneous nodules Psych: sedated. Neuro: sedated Lines: / Right IJ Nair 08/16 - Constitutional Vitals: Vital Signs Temp Pulse Resp BP Pulse Ox 98.5 F 105 H 20 118/55 100 09/07/17 08:00 09/07/17 11:30 09/07/17 11:30 09/07/17 11:30 09/07/17 11:30 Temperature -Last 24 Hours Temperature 98.5 F Temperature 97.8 F Temperature 99.3 F Temperature 99.3 F Temperature 97.8 F Temperature 97.8 F - Labs CBC & Chem 7: 09/07/17 03:50 09/07/17 03:50 Labs: Abnormal lab results 09/06/17 09/06/17 09/06/17 Range/Units 08:04 09:06 10:19 WBC (4.5-11.0) K/mm3 RBC (3.65-5.03) M/mm3 Hgb (10.1-14.3) gm/dl Hct (30.3-42.9) % RDW (13.2-15.2) % Lymphocytes % (Manual) (13.4-35.0) % Nucleated RBC % (0.0-0.9) % Seg Neutrophils # Man (1.8-7.7) K/mm3 Monocytes # (Manual) (0.0-0.8) K/mm3 Eosinophils # (Manual) (0.0-0.4) K/mm3 ABG Hemoglobin (12.0-16.0) gm/dl Oxyhemoglobin (95.0-99.0) % Sodium (137-145) mmol/L Chloride (98-107) mmol/L BUN (7-17) mg/dL Creatinine (0.7-1.2) mg/dL Glucose (65-100) mg/dL POC Glucose 164 H 172 H 186 H (70-105) Calcium (8.4-10.2) mg/dL 09/06/17 09/06/17 09/06/17 Range/Units 10:57 13:12 13:40 WBC (4.5-11.0) K/mm3 RBC (3.65-5.03) M/mm3 Hgb 8.9 L (10.1-14.3) gm/dl Hct 28.5 L (30.3-42.9) % RDW (13.2-15.2) % Lymphocytes % (Manual) (13.4-35.0) % Nucleated RBC % (0.0-0.9) % Seg Neutrophils # Man (1.8-7.7) K/mm3 Monocytes # (Manual) (0.0-0.8) K/mm3 Eosinophils # (Manual) (0.0-0.4) K/mm3 ABG Hemoglobin (12.0-16.0) gm/dl Oxyhemoglobin (95.0-99.0) % Sodium (137-145) mmol/L Chloride (98-107) mmol/L BUN (7-17) mg/dL Creatinine (0.7-1.2) mg/dL Glucose (65-100) mg/dL POC Glucose 162 H 166 H (70-105) Calcium (8.4-10.2) mg/dL 09/06/17 09/07/17 09/07/17 Range/Units 17:36 00:13 03:50 WBC 47.0 H* (4.5-11.0) K/mm3 RBC 2.81 L (3.65-5.03) M/mm3 Hgb 8.1 L (10.1-14.3) gm/dl Hct 24.1 L (30.3-42.9) % RDW 22.5 H (13.2-15.2) % Lymphocytes % (Manual) 9.0 L (13.4-35.0) % Nucleated RBC % 6.0 H (0.0-0.9) % Seg Neutrophils # Man 27.3 H (1.8-7.7) K/mm3 Monocytes # (Manual) 0.9 H (0.0-0.8) K/mm3 Eosinophils # (Manual) 1.9 H (0.0-0.4) K/mm3 ABG Hemoglobin (12.0-16.0) gm/dl Oxyhemoglobin (95.0-99.0) % Sodium (137-145) mmol/L Chloride (98-107) mmol/L BUN (7-17) mg/dL Creatinine (0.7-1.2) mg/dL Glucose (65-100) mg/dL POC Glucose 161 H 183 H (70-105) Calcium (8.4-10.2) mg/dL 09/07/17 09/07/17 09/07/17 Range/Units 03:50 05:12 05:23 WBC (4.5-11.0) K/mm3 RBC (3.65-5.03) M/mm3 Hgb (10.1-14.3) gm/dl Hct (30.3-42.9) % RDW (13.2-15.2) % Lymphocytes % (Manual) (13.4-35.0) % Nucleated RBC % (0.0-0.9) % Seg Neutrophils # Man (1.8-7.7) K/mm3 Monocytes # (Manual) (0.0-0.8) K/mm3 Eosinophils # (Manual) (0.0-0.4) K/mm3 ABG Hemoglobin 7.7 L (12.0-16.0) gm/dl Oxyhemoglobin 94.8 L (95.0-99.0) % Sodium 136 L (137-145) mmol/L Chloride 96.3 L (98-107) mmol/L BUN 61 H (7-17) mg/dL Creatinine 1.7 H (0.7-1.2) mg/dL Glucose 132 H (65-100) mg/dL POC Glucose 162 H (70-105) Calcium 7.8 L (8.4-10.2) mg/dL
--- NOTE | 2017-09-07 14:24 | Progress Note ---
Assessment and Plan 62 y.o. F s/p ex lap, abdominal wash out and abdominal wall closure after wound dehiscence 2 weeks s/p ex lap for gastric perforation and sbo. Sepsis: Pt requiring levo, with requirements increased post HD but now less. Steroids are being weaned down as well. Source of sepsis unknown. Recent CT abd pelvis does not show any collections. Rec. follow blood cultures. Ivan cath is a possible infectious source. Pt is on HD and only produces infrequent small amounts of urine. Rec eval the need for the ivan catheter. -Wound care following wounds on legs. -zyvox and diflucan per ID GI bleed: Pt started to have melena again yesterday (3 episodes). The source is likely lower GI since G tube has remained bilious. Rec. GI to re-eval however she is likely unstable for C-scope at this time. If bleeding continues rec bleeding scan for possible source. MERVIN continues to be drk red- on recent ex lap a hematoma was inferior to stomach to noted but no active bleeding. MERVIN contents may rep breaking down of old clot. Rec. trend H and H. Prev Gastric perf: NG re positioned- Chest xr to follow up placement. Continue NG to intermit. low wall gravity. If G tube output continues to decrease and the pt does not have signs of ileus, we will perform methylene blue test a bedside if NG tube to assess the status of the prev. perforation. The goal is for pt to be started on trickle enteric feeds however these cannot be started until healing of the previous gastric perf is confirmed. Nutrition: TPN at 75- replace G tube losses though she is renal? Renal to manage fluids. DVT proph: scds hold hep with GI bleed. GI: PPI. Dr. Chamorro discussed the current plan with the family at bedside. - Patient Problems (1) Peritonitis (acute) generalized Current Visit: Yes Status: Acute Subjective Narrative: Pt seen/examined at bedside. Vent depended, levo at 15 and overnight night levo at 20. HD yesterday. 2 melena episodes yesterday and one overnight-drk red/stool. Pt awakens with pain but does not follow commands. afebrile Outputs: NG 0- readjusted at bedside G tube: 480cc bililous MERVIN: 90cc drk red. no clots. no bile. Objective Vital Signs - 12hr 09/07/17 09/07/17 09/07/17 02:30 02:45 03:00 Temperature Pulse Rate 101 H 101 H 99 H Pulse Rate [ From Monitor] Pulse Rate [ Throughout] Respiratory 21 20 20 Rate Respiratory Rate [ Throughout] Blood Pressure 100/42 104/43 101/47 O2 Sat by Pulse 100 100 100 Oximetry 09/07/17 09/07/17 09/07/17 03:15 03:30 03:45 Temperature 97.8 F Pulse Rate 97 H 99 H 99 H Pulse Rate [ From Monitor] Pulse Rate [ Throughout] Respiratory 20 20 20 Rate Respiratory Rate [ Throughout] Blood Pressure 104/44 102/49 77/33 O2 Sat by Pulse 100 100 100 Oximetry 09/07/17 09/07/17 09/07/17 03:50 04:00 04:15 Temperature Pulse Rate 99 H 98 H 98 H Pulse Rate [ From Monitor] Pulse Rate [ Throughout] Respiratory 20 20 20 Rate Respiratory Rate [ Throughout] Blood Pressure 100/48 98/46 O2 Sat by Pulse 100 99 100 Oximetry 09/07/17 09/07/17 09/07/17 04:30 04:45 05:00 Temperature Pulse Rate 101 H 96 H 98 H Pulse Rate [ From Monitor] Pulse Rate [ Throughout] Respiratory 20 20 19 Rate Respiratory Rate [ Throughout] Blood Pressure 98/49 98/45 89/42 O2 Sat by Pulse 100 100 95 Oximetry 09/07/17 09/07/17 09/07/17 05:15 05:30 05:45 Temperature Pulse Rate 103 H 106 H 105 H Pulse Rate [ From Monitor] Pulse Rate [ Throughout] Respiratory 20 20 13 Rate Respiratory Rate [ Throughout] Blood Pressure 92/50 102/45 102/45 O2 Sat by Pulse 95 99 87 Oximetry 09/07/17 09/07/17 09/07/17 05:55 06:00 06:15 Temperature Pulse Rate 105 H 108 H 110 H Pulse Rate [ From Monitor] Pulse Rate [ Throughout] Respiratory 21 21 21 Rate Respiratory Rate [ Throughout] Blood Pressure 85/32 89/33 O2 Sat by Pulse 100 100 100 Oximetry 09/07/17 09/07/17 09/07/17 06:31 06:45 07:01 Temperature Pulse Rate 108 H 108 H 110 H Pulse Rate [ From Monitor] Pulse Rate [ Throughout] Respiratory 20 19 22 Rate Respiratory Rate [ Throughout] Blood Pressure 85/35 84/34 106/43 O2 Sat by Pulse 100 100 100 Oximetry 09/07/17 09/07/17 09/07/17 07:15 07:30 07:45 Temperature Pulse Rate 113 H 111 H 108 H Pulse Rate [ From Monitor] Pulse Rate [ Throughout] Respiratory 18 15 20 Rate Respiratory Rate [ Throughout] Blood Pressure 100/48 103/51 115/46 O2 Sat by Pulse 100 100 98 Oximetry 09/07/17 09/07/17 09/07/17 08:00 08:15 08:30 Temperature 98.5 F Pulse Rate 108 H 107 H 110 H Pulse Rate [ 112 H From Monitor] Pulse Rate [ Throughout] Respiratory 18 20 9 L Rate Respiratory Rate [ Throughout] Blood Pressure 104/65 102/58 110/56 O2 Sat by Pulse 100 100 98 Oximetry 09/07/17 09/07/17 09/07/17 08:40 08:45 08:46 Temperature Pulse Rate 109 H 109 H Pulse Rate [ From Monitor] Pulse Rate [ 110 H Throughout] Respiratory 21 16 Rate Respiratory 20 Rate [ Throughout] Blood Pressure 110/56 104/64 O2 Sat by Pulse 99 100 Oximetry 09/07/17 09/07/17 09/07/17 08:53 09:00 09:15 Temperature Pulse Rate 109 H 114 H Pulse Rate [ From Monitor] Pulse Rate [ 107 H Throughout] Respiratory 20 18 Rate Respiratory 21 Rate [ Throughout] Blood Pressure 106/51 96/57 O2 Sat by Pulse 95 100 Oximetry 09/07/17 09/07/17 09/07/17 09:30 09:45 10:00 Temperature Pulse Rate 112 H 114 H 117 H Pulse Rate [ From Monitor] Pulse Rate [ Throughout] Respiratory 16 18 15 Rate Respiratory Rate [ Throughout] Blood Pressure 95/56 98/48 107/43 O2 Sat by Pulse 100 92 100 Oximetry 09/07/17 09/07/17 09/07/17 10:15 10:19 10:30 Temperature Pulse Rate 110 H 110 H Pulse Rate [ From Monitor] Pulse Rate [ Throughout] Respiratory 18 20 Rate Respiratory Rate [ Throughout] Blood Pressure 106/53 106/53 116/56 O2 Sat by Pulse 100 99 99 Oximetry 09/07/17 09/07/17 09/07/17 10:46 11:00 11:15 Temperature Pulse Rate 105 H 105 H 107 H Pulse Rate [ From Monitor] Pulse Rate [ Throughout] Respiratory 15 19 20 Rate Respiratory Rate [ Throughout] Blood Pressure 116/59 121/58 117/60 O2 Sat by Pulse 100 100 100 Oximetry 09/07/17 09/07/17 09/07/17 11:30 11:45 12:00 Temperature 98.5 F Pulse Rate 105 H 104 H 102 H Pulse Rate [ From Monitor] Pulse Rate [ Throughout] Respiratory 20 18 20 Rate Respiratory Rate [ Throughout] Blood Pressure 118/55 113/53 103/55 O2 Sat by Pulse 100 100 99 Oximetry 09/07/17 09/07/17 09/07/17 12:15 12:30 12:45 Temperature Pulse Rate 100 H 101 H 100 H Pulse Rate [ From Monitor] Pulse Rate [ Throughout] Respiratory 19 21 20 Rate Respiratory Rate [ Throughout] Blood Pressure 101/56 113/53 112/57 O2 Sat by Pulse 99 99 100 Oximetry 09/07/17 09/07/17 09/07/17 13:00 13:16 13:30 Temperature Pulse Rate 98 H 100 H 98 H Pulse Rate [ From Monitor] Pulse Rate [ Throughout] Respiratory 20 20 21 Rate Respiratory Rate [ Throughout] Blood Pressure 107/56 110/52 109/59 O2 Sat by Pulse 100 94 100 Oximetry 09/07/17 09/07/17 13:45 14:00 Temperature Pulse Rate 97 H 98 H Pulse Rate [ From Monitor] Pulse Rate [ 98 H Throughout] Respiratory 20 22 Rate Respiratory 20 Rate [ Throughout] Blood Pressure 108/55 115/55 O2 Sat by Pulse 100 98 Oximetry - General physical appearance obese, other (withdrwl to pain) - ENT other (NG tube loose, readjusted with new tape. ) - Respiratory normal expansion, normal respiratory effort, other (vent) - Abdomen soft, other (obese, tender to midline. MERVIN: drk blood, no clots, no bile noted. G tube: drk bile. midline incision: packing removed. small amount of clot at superior incision. facscia intact but friable at superior portion. clot removed and repacked with kerlex, then covered with 4x4 and abd pads, tape. retention sutures in place. left mid abd wound-prev pd cath site. cdi. 3x2cm packed with kerlex lightly. covered. ) - Genitourinary other (ivan) - Neurologic disoriented - Musculoskeletal other (+3 edema upper and lower extremities. weeping at open skin sites ) - Psychiatric oriented to place (not oriented), other - Labs 09/07/17 03:50 09/07/17 03:50 Diabetes panel 09/07/17 Range/Units 03:50 Sodium 136 L (137-145) mmol/L Potassium 3.6 (3.6-5.0) mmol/L Chloride 96.3 L (98-107) mmol/L Carbon Dioxide 24 (22-30) mmol/L BUN 61 H (7-17) mg/dL Creatinine 1.7 H (0.7-1.2) mg/dL Glucose 132 H (65-100) mg/dL Calcium 7.8 L (8.4-10.2) mg/dL Calcium panel 09/07/17 Range/Units 03:50 Calcium 7.8 L (8.4-10.2) mg/dL Phosphorus 3.80 (2.5-4.5) mg/dL Pituitary panel 09/07/17 Range/Units 03:50 Sodium 136 L (137-145) mmol/L Potassium 3.6 (3.6-5.0) mmol/L Chloride 96.3 L (98-107) mmol/L Carbon Dioxide 24 (22-30) mmol/L BUN 61 H (7-17) mg/dL Creatinine 1.7 H (0.7-1.2) mg/dL Glucose 132 H (65-100) mg/dL Calcium 7.8 L (8.4-10.2) mg/dL Adrenal panel 09/07/17 Range/Units 03:50 Sodium 136 L (137-145) mmol/L Potassium 3.6 (3.6-5.0) mmol/L Chloride 96.3 L (98-107) mmol/L Carbon Dioxide 24 (22-30) mmol/L BUN 61 H (7-17) mg/dL Creatinine 1.7 H (0.7-1.2) mg/dL Glucose 132 H (65-100) mg/dL Calcium 7.8 L (8.4-10.2) mg/dL
[2017-09-07] MEDS ORDERED: NACL 0.9% 500 ML 500 ML IV ONE (15:00)
--- NOTE | 2017-09-07 17:09 | XRay Report ---
FINAL REPORT EXAM: XR ABDOMEN 1V AP HISTORY: s/p ng adjustment TECHNIQUE: A single view of the abdomen was performed Comparison: 08/17/2017, CT 08/16/2017 FINDINGS: There has been previous gastric bypass. Nasogastric tube is present with the tip present in the region of the gastric body. The side port is at the GE junction. Based on the previous gastric bypass surgery, it may be unable to pass further distally due to the size of the pouch outlet. Bilateral ureteral stents and an apparent G-tube is present. There are clips in the right upper quadrant. The abdomen is distended. IMPRESSION: Nasogastric tube present in this patient with previous gastric bypass surgery. The tip appears to be present the region of the distal pouch and may not be able to be advanced further. The side port is at the GE junction. If there is a question, recommend fluoroscopically guided nasogastric tube contrast injection with syringe evacuation following the exam. There is residual contrast in the excluded stomach. G-tube appears to be present. There are bilateral ureteral stents. There is abdomen is distended. There are clips in the right upper quadrant.
[2017-09-07] MEDS: DILAUDID IV PRN (17:11)
--- NOTE | 2017-09-07 19:53 | Progress Note ---
Assessment and Plan - Patient Problems (1) Leukocytosis Current Visit: Yes Status: Acute Qualifiers: Leukocytosis type: L Plan to address problem: See notes above. make sure that PD access is clean also. see notes. Probably infection from the infected PD catheter. improving. back up again. up/down continue to monitor. (2) Anemia Current Visit: Yes Status: Acute Qualifiers: Anemia type: A Iron deficiency anemia type: I Vitamin B12 deficiency anemia type: V Folate deficiency anemia type: F Bone marrow failure anemia type: B Hemolytic anemia type: H Other causes of anemia: O Chronic kidney disease stage: C Plan to address problem: see notes , monitor labs,. see notes above. continue to monitor labs with you. blood transfusion. S/P replacement transfusion. fair. (3) Acute respiratory failure Current Visit: Yes Status: Acute Qualifiers: Respiratory failure complication: R Plan to address problem: follow pulm. Subjective Date of service: 09/07/17 Principal diagnosis: septic shock Interval history: Patient seen today/examined, labs reviewed, case d/w she, and family.complaints of abdominal pain. Patient resting in bed in the ICU, post vascular procedure. labs reviewed, Reactive thrombocytosis, anemia of CD, leukocytosis from infection vs inflamatory process. Patient seen/examined, in bed in the ICU, on the vent post surgery.Labs reviewed , notes reviewed. will continue to monitor labs/patient with you. Replacement transfusion, if /when indicated. patient seen/examined, SBP75, on pressors., lethargic, on the vent, labs reviewed, wbc 39,000 Patient seen/examined, case reviewed, d/w her sister at the bed side. Patient seen/examined, labs reviewed, notes reviewed. severe septic shock from infected PD catheter The high wbc is all infection related. H?H low, and may get replacement transfusion with the next HD. Prognosis remain quite poor. Patient seen/examined, extubated, now on V Mask. labs reviewed. patient seen/examined, resting in bed, still some what lethargic . labs reviewed. Patient seen/examined, resting in bed., some difficulty with breathing./ lethargic. patient seen/examined, resting in bed, looked much better labs reviewed, and fair over all. Patient seen/examined, resting in bed, labs reviewed, case d/w her. Patient seen/examined, resting in bed on BIPAP., labs reviewed. patient seen/examined, resting in bed, on Bipap.labs reviewed, fairly stable. Patient seen today, resting in bed, labs reviewed, H/H low, and transfusion already ordered. Patient seen/examined, resting in bed, transferred back to the unit, due to resp failure. She is now on venting mask. had blood replacement done. Patient seen/examined in the ICU.labs reviewed. patient intubated this am. patient resting in bed.no new issues. Patient seen/examined in the ICU, on vent,Not readily responsive. patient seen, resting in bed, no new cbc ready.will order for today. Patient seen, resting in vent, labs reviewed.notes reviewed also. patient seen/examined, resting on vent, had HD yesterday, and today., labs reviewed. Patient seen, resting in bed, labs reviewed.fairly stable labs, except the wbc. Patient seen/examined, rtesting in bed on the vent.Labs reviewed, wbc still elevated, Hgb dropped slightly. Objective - Constitutional Vitals: Vital Signs - 12hr 09/07/17 09/07/17 09/07/17 08:00 08:15 08:30 Temperature 98.5 F Pulse Rate 108 H 107 H 110 H Pulse Rate [ 112 H From Monitor] Pulse Rate [ Throughout] Respiratory 18 20 9 L Rate Respiratory Rate [ Generalized] Respiratory Rate [ Throughout] Blood Pressure 104/65 102/58 110/56 O2 Sat by Pulse 100 100 98 Oximetry 09/07/17 09/07/17 09/07/17 08:40 08:45 08:46 Temperature Pulse Rate 109 H 109 H Pulse Rate [ From Monitor] Pulse Rate [ 110 H Throughout] Respiratory 21 16 Rate Respiratory Rate [ Generalized] Respiratory 20 Rate [ Throughout] Blood Pressure 110/56 104/64 O2 Sat by Pulse 99 100 Oximetry 09/07/17 09/07/17 09/07/17 08:53 09:00 09:15 Temperature Pulse Rate 109 H 114 H Pulse Rate [ From Monitor] Pulse Rate [ 107 H Throughout] Respiratory 20 18 Rate Respiratory Rate [ Generalized] Respiratory 21 Rate [ Throughout] Blood Pressure 106/51 96/57 O2 Sat by Pulse 95 100 Oximetry 09/07/17 09/07/17 09/07/17 09:30 09:45 10:00 Temperature Pulse Rate 112 H 114 H 117 H Pulse Rate [ From Monitor] Pulse Rate [ Throughout] Respiratory 16 18 15 Rate Respiratory Rate [ Generalized] Respiratory Rate [ Throughout] Blood Pressure 95/56 98/48 107/43 O2 Sat by Pulse 100 92 100 Oximetry 09/07/17 09/07/17 09/07/17 10:15 10:19 10:30 Temperature Pulse Rate 110 H 110 H Pulse Rate [ From Monitor] Pulse Rate [ Throughout] Respiratory 18 20 Rate Respiratory Rate [ Generalized] Respiratory Rate [ Throughout] Blood Pressure 106/53 106/53 116/56 O2 Sat by Pulse 100 99 99 Oximetry 09/07/17 09/07/17 09/07/17 10:46 11:00 11:15 Temperature Pulse Rate 105 H 105 H 107 H Pulse Rate [ From Monitor] Pulse Rate [ Throughout] Respiratory 15 19 20 Rate Respiratory Rate [ Generalized] Respiratory Rate [ Throughout] Blood Pressure 116/59 121/58 117/60 O2 Sat by Pulse 100 100 100 Oximetry 09/07/17 09/07/17 09/07/17 11:30 11:45 12:00 Temperature 98.5 F Pulse Rate 105 H 104 H 102 H Pulse Rate [ From Monitor] Pulse Rate [ Throughout] Respiratory 20 18 20 Rate Respiratory Rate [ Generalized] Respiratory Rate [ Throughout] Blood Pressure 118/55 113/53 103/55 O2 Sat by Pulse 100 100 99 Oximetry 09/07/17 09/07/17 09/07/17 12:15 12:30 12:45 Temperature Pulse Rate 100 H 101 H 100 H Pulse Rate [ From Monitor] Pulse Rate [ Throughout] Respiratory 19 21 20 Rate Respiratory Rate [ Generalized] Respiratory Rate [ Throughout] Blood Pressure 101/56 113/53 112/57 O2 Sat by Pulse 99 99 100 Oximetry 09/07/17 09/07/17 09/07/17 13:00 13:16 13:30 Temperature Pulse Rate 98 H 100 H 98 H Pulse Rate [ From Monitor] Pulse Rate [ Throughout] Respiratory 20 20 21 Rate Respiratory Rate [ Generalized] Respiratory Rate [ Throughout] Blood Pressure 107/56 110/52 109/59 O2 Sat by Pulse 100 94 100 Oximetry 09/07/17 09/07/17 09/07/17 13:45 14:00 14:15 Temperature Pulse Rate 97 H 98 H 95 H Pulse Rate [ From Monitor] Pulse Rate [ 98 H Throughout] Respiratory 20 22 20 Rate Respiratory Rate [ Generalized] Respiratory 20 Rate [ Throughout] Blood Pressure 108/55 115/55 114/58 O2 Sat by Pulse 100 98 100 Oximetry 09/07/17 09/07/17 09/07/17 14:17 14:24 14:30 Temperature Pulse Rate 96 H 99 H Pulse Rate [ From Monitor] Pulse Rate [ 95 H Throughout] Respiratory 20 Rate Respiratory Rate [ Generalized] Respiratory 20 Rate [ Throughout] Blood Pressure 114/58 112/53 O2 Sat by Pulse 100 100 Oximetry 09/07/17 09/07/17 09/07/17 14:46 15:00 15:15 Temperature Pulse Rate 97 H 99 H 101 H Pulse Rate [ From Monitor] Pulse Rate [ Throughout] Respiratory 21 17 21 Rate Respiratory Rate [ Generalized] Respiratory Rate [ Throughout] Blood Pressure 112/53 115/55 108/54 O2 Sat by Pulse 100 100 93 Oximetry 09/07/17 09/07/17 09/07/17 15:30 15:45 16:00 Temperature 99.9 F H Pulse Rate 97 H 96 H 95 H Pulse Rate [ From Monitor] Pulse Rate [ Throughout] Respiratory 20 20 20 Rate Respiratory Rate [ Generalized] Respiratory Rate [ Throughout] Blood Pressure 106/54 108/53 106/47 O2 Sat by Pulse 96 96 99 Oximetry 09/07/17 09/07/17 09/07/17 16:15 16:25 16:30 Temperature Pulse Rate 94 H 95 H 95 H Pulse Rate [ From Monitor] Pulse Rate [ Throughout] Respiratory 18 20 Rate Respiratory Rate [ Generalized] Respiratory Rate [ Throughout] Blood Pressure 103/52 103/52 101/49 O2 Sat by Pulse 97 98 99 Oximetry 09/07/17 09/07/17 09/07/17 16:45 17:00 17:16 Temperature Pulse Rate 96 H 96 H 97 H Pulse Rate [ From Monitor] Pulse Rate [ Throughout] Respiratory 20 20 16 Rate Respiratory Rate [ Generalized] Respiratory Rate [ Throughout] Blood Pressure 100/51 102/53 82/43 O2 Sat by Pulse 97 100 100 Oximetry 09/07/17 09/07/17 09/07/17 17:30 17:45 18:00 Temperature Pulse Rate 106 H 97 H 96 H Pulse Rate [ From Monitor] Pulse Rate [ Throughout] Respiratory 17 14 20 Rate Respiratory Rate [ Generalized] Respiratory Rate [ Throughout] Blood Pressure 97/33 110/53 110/51 O2 Sat by Pulse 100 100 100 Oximetry 10/09/07/17 09/07/17 18:15 18:30 18:45 Temperature Pulse Rate 96 H 93 H 95 H Pulse Rate [ From Monitor] Pulse Rate [ Throughout] Respiratory 20 20 19 Rate Respiratory Rate [ Generalized] Respiratory Rate [ Throughout] Blood Pressure 107/51 107/52 105/52 O2 Sat by Pulse 100 100 100 Oximetry 09/07/17 09/07/17 09/07/17 19:00 19:05 19:15 Temperature Pulse Rate 96 H 92 H Pulse Rate [ From Monitor] Pulse Rate [ Throughout] Respiratory 20 20 20 Rate Respiratory 20 Rate [ Generalized] Respiratory Rate [ Throughout] Blood Pressure 103/52 106/52 O2 Sat by Pulse 100 100 100 Oximetry 09/07/17 19:19 Temperature 97.3 F L Pulse Rate Pulse Rate [ From Monitor] Pulse Rate [ Throughout] Respiratory Rate Respiratory Rate [ Generalized] Respiratory Rate [ Throughout] Blood Pressure O2 Sat by Pulse Oximetry General appearance: Present: severe distress - EENT Eyes: PERRL - Neck Neck: supple, normal ROM - Respiratory Respiratory: bilateral: diminished (on the vent.) - Breasts Breasts: deferred - Cardiovascular Rhythm: regular Heart Sounds: Present: S1 & S2. Absent: gallop, rub Extremities: pulses intact, No edema, normal color, Full ROM - Gastrointestinal General gastrointestinal: Present: soft, non-tender, non-distended, normal bowel sounds Rectal Exam: deferred - Genitourinary Female genitourinary: deferred - Integumentary Integumentary: clear, warm, dry - Musculoskeletal Musculoskeletal: other (sedated, NR in general.) - Labs CBC & Chem 7: 09/07/17 03:50 09/07/17 03:50 Labs: Abnormal lab results 09/07/17 09/07/17 09/07/17 Range/Units 00:13 03:50 03:50 WBC 47.0 H* (4.5-11.0) K/mm3 RBC 2.81 L (3.65-5.03) M/mm3 Hgb 8.1 L (10.1-14.3) gm/dl Hct 24.1 L (30.3-42.9) % RDW 22.5 H (13.2-15.2) % Lymphocytes % (Manual) 9.0 L (13.4-35.0) % Nucleated RBC % 6.0 H (0.0-0.9) % Seg Neutrophils # Man 27.3 H (1.8-7.7) K/mm3 Monocytes # (Manual) 0.9 H (0.0-0.8) K/mm3 Eosinophils # (Manual) 1.9 H (0.0-0.4) K/mm3 ABG Hemoglobin (12.0-16.0) gm/dl Oxyhemoglobin (95.0-99.0) % Sodium 136 L (137-145) mmol/L Chloride 96.3 L (98-107) mmol/L BUN 61 H (7-17) mg/dL Creatinine 1.7 H (0.7-1.2) mg/dL Glucose 132 H (65-100) mg/dL POC Glucose 183 H (70-105) Calcium 7.8 L (8.4-10.2) mg/dL Crossmatch 09/07/17 09/07/17 09/07/17 Range/Units 05:12 05:23 17:07 WBC (4.5-11.0) K/mm3 RBC (3.65-5.03) M/mm3 Hgb (10.1-14.3) gm/dl Hct (30.3-42.9) % RDW (13.2-15.2) % Lymphocytes % (Manual) (13.4-35.0) % Nucleated RBC % (0.0-0.9) % Seg Neutrophils # Man (1.8-7.7) K/mm3 Monocytes # (Manual) (0.0-0.8) K/mm3 Eosinophils # (Manual) (0.0-0.4) K/mm3 ABG Hemoglobin 7.7 L (12.0-16.0) gm/dl Oxyhemoglobin 94.8 L (95.0-99.0) % Sodium (137-145) mmol/L Chloride (98-107) mmol/L BUN (7-17) mg/dL Creatinine (0.7-1.2) mg/dL Glucose (65-100) mg/dL POC Glucose 162 H (70-105) Calcium (8.4-10.2) mg/dL Crossmatch See Detail
--- NOTE | 2017-09-07 19:55 | Progress Note ---
Assessment and Plan Assessment and plan: 62 YO Female with MO, ESRD-PD (with PD cath in place )(Daily), HTN, OA, Ischemic Cardiomyopathy currently on Milrinone, Chronic Pain who came to ED with lightheaded and syncope, she c/o abdomnal pain x 2 days, was found to have hypotension, septic shock and intra-abdominal abscess. Sepsis secondary to peritonitis, Intra abdominal abscess and Bowel obstruction - Patient had completed 14 days of meropenem and diflucan - continue abx -ID on board - she has had the following procedures 08/31: Ex lap with abdominal wash out and closure 08/17: Ex lap with G tube placement, EGD, abdominal wash out and removal of PD Cath -taper steroids Acute hypoxic respiratory failure on MV > 96 hours continue ventilator, planned for tracheostomy, has failed extubation multiple times Acute rectal bleeding with severe acute blood loss anemia -EGD showed small gastric ulcer -sp multiple transfusions -- GI consult appreciated - Patient had CTA of abdomen and pelvis no active bleeding, CT Abdomen repeated 09/06, no acute findings - transfuse to keep Hg above 8 given septic shock -continue PPI drip, too unstable for C scope at this time -wean steroids melana, GIB likely from PUD -start PPI drip, keep NPO, monitor Hg and transfuse to keep above 8 -wean off steroids. ESRD -continue HD per renal per femoral HD cath -needs perm cath when improved Septic shock. - continue IV pressors continue abx, ID input appreciated Ulcerative esophagitis/small gastric ulcer on EGD - IV pantoprazole Severe Protein calorie malnutrition - Continue with TPN Sacral and lower extremity wound, POA - continue wound care NSVT likely due to levophed, wean as tolerated cardiology input appreciated --DVT prophylaxis; SCDs - D/C Heparin because of GI bleed Plan of care discussed with the patient's family at bedside Disposition - continue ICU care Prognosis: guarded The high probability of a clinically significant, sudden or life threatening deterioration of the [cv, pulmonary and GI] system(s) required my full and direct attention, intervention and personal management. The aggregate critical care time was [33] minutes. This time is in addition to time spent performing reported procedures but includes the following: [] Data Review and interpretation [] Patient assessment and monitoring of vital signs [] Documentation [] Medication orders and management History Interval history: She has had no more episodes of melena today. Had 3 episodes yesterday Hospitalist Physical - Physical exam Narrative exam: General.: Obese HEENT: Moist mucous membranes, extraocular muscles intact, no lymphadenopathy Neck: supple Cardiac: S1-S2 heard Lungs: clear to auscultation bilaterally Abdomen: soft, bowel sounds normal, other (obese, soft, dressing not removed) Extremities: no edema clubbing or cyanosis Skin: no rash or lesions Neurologic: Intubated, obeys commands, arousable - Constitutional Vitals: Temp Pulse Resp BP Pulse Ox 97.3 F L 92 H 20 106/52 100 09/07/17 19:19 09/07/17 19:15 09/07/17 19:15 09/07/17 19:15 09/07/17 19:15 Results - Labs CBC & Chem 7: 09/07/17 03:50 09/07/17 03:50 Labs: Laboratory Last Values WBC 47.0 K/mm3 (4.5-11.0) H* 09/07/17 03:50 RBC 2.81 M/mm3 (3.65-5.03) L 09/07/17 03:50 Hgb 8.1 gm/dl (10.1-14.3) L 09/07/17 03:50 Hct 24.1 % (30.3-42.9) L 09/07/17 03:50 MCV 86 fl (79-97) 09/07/17 03:50 MCH 29 pg (28-32) 09/07/17 03:50 MCHC 34 % (30-34) 09/07/17 03:50 RDW 22.5 % (13.2-15.2) H 09/07/17 03:50 Plt Count 235 K/mm3 (140-440) 09/07/17 03:50 Lymph % (Auto) Cloth Pattern Maker 08/19/17 07:37 Jack % (Auto) Cloth Pattern Maker 08/19/17 07:37 Eos % (Auto) Cloth Pattern Maker 08/19/17 07:37 Baso % (Auto) Cloth Pattern Maker 08/19/17 07:37 Lymph # Cloth Pattern Maker 08/19/17 07:37 Jack # Cloth Pattern Maker 08/19/17 07:37 Eos # Cloth Pattern Maker 08/19/17 07:37 Baso # Cloth Pattern Maker 08/19/17 07:37 Add Manual Diff Complete 09/07/17 03:50 Total Counted 100 09/07/17 03:50 Seg Neutrophils % Cloth Pattern Maker 09/07/17 03:50 Seg Neuts % (Manual) 58.0 % (40.0-70.0) 09/07/17 03:50 Band Neutrophils % 24.0 % 09/07/17 03:50 Lymphocytes % (Manual) 9.0 % (13.4-35.0) L 09/07/17 03:50 Reactive Lymphs % (Man) 0 % 09/07/17 03:50 Monocytes % (Manual) 2.0 % (0.0-7.3) 09/07/17 03:50 Eosinophils % (Manual) 4.0 % (0.0-4.3) 09/07/17 03:50 Basophils % (Manual) 0 % (0.0-1.8) 09/07/17 03:50 Metamyelocytes % 3.0 % 09/07/17 03:50 Myelocytes % 0 % 09/07/17 03:50 Promyelocytes % 0 % 09/07/17 03:50 Blast Cells % 0 % 09/07/17 03:50 Nucleated RBC % 6.0 % (0.0-0.9) H 09/07/17 03:50 Seg Neutrophils # Cloth Pattern Maker 08/19/17 07:37 Seg Neutrophils # Man 27.3 K/mm3 (1.8-7.7) H 09/07/17 03:50 Band Neutrophils # 11.3 K/mm3 09/07/17 03:50 Lymphocytes # (Manual) 4.2 K/mm3 (1.2-5.4) 09/07/17 03:50 Abs React Lymphs (Man) 0.0 K/mm3 09/07/17 03:50 Monocytes # (Manual) 0.9 K/mm3 (0.0-0.8) H 09/07/17 03:50 Eosinophils # (Manual) 1.9 K/mm3 (0.0-0.4) H 09/07/17 03:50 Basophils # (Manual) 0.0 K/mm3 (0.0-0.1) 09/07/17 03:50 Metamyelocytes # 1.4 K/mm3 09/07/17 03:50 Myelocytes # 0.0 K/mm3 09/07/17 03:50 Promyelocytes # 0.0 K/mm3 09/07/17 03:50 Blast Cells # 0.0 K/mm3 09/07/17 03:50 Pathologist Review Not Reportable 08/30/17 05:20 WBC Morphology Not Reportable 09/07/17 03:50 Hypersegmented Neuts Not Reportable 09/07/17 03:50 Hyposegmented Neuts Not Reportable 09/07/17 03:50 Hypogranular Neuts Not Reportable 09/07/17 03:50 Smudge Cells Few 09/07/17 03:50 Toxic Granulation Not Reportable 09/07/17 03:50 Toxic Vacuolation Not Reportable 09/07/17 03:50 Dohle Bodies Not Reportable 09/07/17 03:50 Pelger-Huet Anomaly Not Reportable 09/07/17 03:50 Ariel Rods Not Reportable 09/07/17 03:50 Platelet Estimate Appears normal 09/07/17 03:50 Clumped Platelets Not Reportable 09/07/17 03:50 Plt Clumps, EDTA Not Reportable 09/07/17 03:50 Large Platelets Not Reportable 09/07/17 03:50 Giant Platelets Not Reportable 09/07/17 03:50 Platelet Satelliting Not Reportable 09/07/17 03:50 Plt Morphology Comment Not Reportable 09/07/17 03:50 RBC Morphology Not Reportable 09/07/17 03:50 Dimorphic RBCs Not Reportable 09/07/17 03:50 Polychromasia Few 09/07/17 03:50 Hypochromasia Few 09/07/17 03:50 Poikilocytosis Not Reportable 09/07/17 03:50 Anisocytosis 2+ 09/07/17 03:50 Microcytosis Not Reportable 09/07/17 03:50 Macrocytosis Not Reportable 09/07/17 03:50 Spherocytes Not Reportable 09/07/17 03:50 Pappenheimer Bodies Not Reportable 09/07/17 03:50 Sickle Cells Not Reportable 09/07/17 03:50 Target Cells Not Reportable 09/07/17 03:50 Tear Drop Cells Not Reportable 09/07/17 03:50 Ovalocytes Not Reportable 09/07/17 03:50 Stomatocytes Rare 09/01/17 05:00 Helmet Cells Not Reportable 09/07/17 03:50 [place] Bodies Not Reportable 09/07/17 03:50 Dalbo Rings Not Reportable 09/07/17 03:50 Yusuf Cells Not Reportable 09/07/17 03:50 Bite Cells Not Reportable 09/07/17 03:50 Crenated Cell Not Reportable 09/07/17 03:50 Elliptocytes Not Reportable 09/07/17 03:50 Acanthocytes (Spur) Not Reportable 09/07/17 03:50 Rouleaux Not Reportable 09/07/17 03:50 Hemoglobin C Crystals Not Reportable 09/07/17 03:50 Schistocytes Not Reportable 09/07/17 03:50 Malaria parasites Not Reportable 09/07/17 03:50 Jovanni Bodies Not Reportable 09/07/17 03:50 Hem Pathologist Commnt No 09/07/17 03:50 PT 15.1 Sec. (12.2-14.9) H 08/31/17 18:15 INR 1.13 (0.87-1.13) 08/31/17 18:15 APTT 28.7 Sec. (24.2-36.6) 08/31/17 18:15 POC ABG pH 7.335 (7.35-7.45) L 08/30/17 03:31 ABG pH 7.367 pH Units (7.350-7.450) 09/07/17 05:23 POC ABG pCO2 44.1 (35-45) 08/30/17 03:31 ABG pCO2 43.0 mm Hg 09/07/17 05:23 POC ABG pO2 117 (80-105) H 08/30/17 03:31 ABG pO2 85.4 mm Hg (80.0-90.0) 09/07/17 05:23 POC ABG HCO3 23.5 08/30/17 03:31 ABG HCO3 24.1 mmol/L (20.0-26.0) 09/07/17 05:23 POC ABG Total CO2 25 08/30/17 03:31 POC ABG O2 Sat 98 08/30/17 03:31 ABG O2 Saturation 96.7 % (95.0-99.0) 09/07/17 05:23 ABG O2 Content 10.4 (0.0-44) 09/07/17 05:23 POC ABG Base Excess -2 08/30/17 03:31 ABG Base Excess -1.1 mmol/L (-2.0-3.0) 09/07/17 05:23 ABG Hemoglobin 7.7 gm/dl (12.0-16.0) L 09/07/17 05:23 ABG Carboxyhemoglobin 1.7 % (0.0-5.0) 09/07/17 05:23 ABG Methemoglobin 0.2 % (0.0-1.5) 09/07/17 05:23 VBG pH 7.462 (7.320-7.420) H 08/08/17 14:52 Oxyhemoglobin 94.8 % (95.0-99.0) L 09/07/17 05:23 FiO2 40 % 09/07/17 05:23 Sodium 136 mmol/L (137-145) L 09/07/17 03:50 Potassium 3.6 mmol/L (3.6-5.0) 09/07/17 03:50 Chloride 96.3 mmol/L (98-107) L 09/07/17 03:50 Carbon Dioxide 24 mmol/L (22-30) 09/07/17 03:50 Anion Gap 19 mmol/L 09/07/17 03:50 BUN 61 mg/dL (7-17) H 09/07/17 03:50 Creatinine 1.7 mg/dL (0.7-1.2) H 09/07/17 03:50 Estimated GFR 37 ml/min 09/07/17 03:50 BUN/Creatinine Ratio 36 % 09/07/17 03:50 Glucose 132 mg/dL (65-100) H 09/07/17 03:50 POC Glucose 162 (70-105) H 09/07/17 05:12 Lactic Acid 1.60 mmol/L (0.7-2.0) 08/17/17 11:20 Calcium 7.8 mg/dL (8.4-10.2) L 09/07/17 03:50 Phosphorus 3.80 mg/dL (2.5-4.5) 09/07/17 03:50 Magnesium 2.10 mg/dL (1.7-2.3) 09/07/17 03:50 Total Bilirubin 0.90 mg/dL (0.1-1.2) 09/03/17 04:00 Direct Bilirubin 0.2 mg/dL (0-0.2) 08/08/17 14:11 Indirect Bilirubin 0.3 mg/dL 08/08/17 14:11 AST 40 units/L (5-40) 09/03/17 04:00 ALT 34 units/L (7-56) 09/03/17 04:00 Alkaline Phosphatase 265 units/L (35-129) H 09/03/17 04:00 Ammonia 25.0 umol/L (25-60) 08/08/17 14:52 Troponin T 0.132 ng/mL (0.00-0.029) H* 08/09/17 13:25 C-Reactive Protein 2.80 mg/dL (0.00-1.30) H 09/06/17 05:30 NT-Pro-B Natriuret Pep 6156 pg/mL (0-900) H 08/08/17 14:11 Total Protein 4.4 g/dL (6.3-8.2) L 09/03/17 04:00 Albumin 1.7 g/dL (3.9-5) L 09/03/17 04:00 Albumin/Globulin Ratio 0.6 % 09/03/17 04:00 Triglycerides 180 mg/dL (2-149) H 09/03/17 04:00 Cholesterol 91 mg/dL (50-199) 08/08/17 21:23 LDL Cholesterol Direct 53 mg/dL (50-130) 08/08/17 21:23 HDL Cholesterol 26 mg/dL (40-59) L 08/08/17 21:23 Cholesterol/HDL Ratio 3.50 % 08/08/17 21:23 Amylase 45 units/L (27-131) 08/16/17 09:50 Lipase 34 units/L (13-60) 08/16/17 09:50 TSH 6.580 mlU/mL (0.270-4.200) H 08/08/17 14:22 Free T4 1.46 ng/dL (0.76-1.46) 08/08/17 14:22 Total Cortisol 30.1 mcg/dL () 08/13/17 06:14 Urine Color Yellow (Yellow) 08/08/17 20:15 Urine Turbidity Turbid (Clear) 08/08/17 20:15 Urine pH 8.0 (5.0-7.0) H 08/08/17 20:15 Ur Specific [place] 1.015 (1.003-1.030) 08/08/17 20:15 Urine Protein 100 mg/dl mg/dL (Negative) 08/08/17 20:15 Urine Glucose (UA) Neg mg/dL (Negative) 08/08/17 20:15 Urine Ketones Neg mg/dL (Negative) 08/08/17 20:15 Urine Blood Mod (Negative) 08/08/17 20:15 Urine Nitrite Neg (Negative) 08/08/17 20:15 Urine Bilirubin Neg (Negative) 08/08/17 20:15 Urine Urobilinogen < 2.0 mg/dL (<2.0) 08/08/17 20:15 Ur Leukocyte Esterase Lg (Negative) 08/08/17 20:15 Urine WBC (Auto) 24.0 /HPF (0.0-6.0) H 08/08/17 20:15 Urine RBC (Auto) 3.0 /HPF (0.0-6.0) 08/08/17 20:15 U Epithel Cells (Auto) 3.0 /HPF (0-13.0) 08/08/17 20:15 Urine Bacteria (Auto) 4+ /HPF (Negative) 08/08/17 20:15 Urine Mucus 3+ /HPF 08/08/17 20:15 Fluid Type Peritoneal 08/08/17 18:18 Fluid Color Straw 08/08/17 18:18 Fluid Appearance Clear 08/08/17 18:18 Fluid pH 7.74 08/08/17 18:18 Fluid WBC 4 /mm3 08/08/17 18:18 Fluid RBC 1 /mm3 08/08/17 18:18 Fluid Seg Neutrophils 12 % 08/08/17 18:18 Fluid Lymphocytes 0 % 08/08/17 18:18 Fluid Reactive Lymphs 0 % 08/08/17 18:18 Fluid Monocytes 1 % 08/08/17 18:18 Fluid Eosinophils 0 % 08/08/17 18:18 Fluid Basophils 0 % 08/08/17 18:18 Fluid Glucose 315 mg/dL (40-70) H 08/08/17 18:18 Random Vancomycin 19.5 ug/mL (0-40.0) 08/22/17 03:40 Hep Bs Antigen Non-reactive (Negative) 08/22/17 03:40 Hepatitis C Antibody Non-reactive (NonReactive) 08/22/17 03:40 Miscellaneous Test Flexitest 1 H 09/04/17 10:43 Blood Type O POSITIVE 09/07/17 17:07 Antibody Screen TNR 09/07/17 17:07 VAN Antibody Screen Negative 09/07/17 17:07 Crossmatch See Detail 09/07/17 17:07
[2017-09-07] MEDS ORDERED: TPN ADULT 1,800 ML IV SCH (20:00)
[2017-09-08] MEDS: NOVOLOG SUB-Q SCH ×4 (00:28→17:42)
[2017-09-08] MEDS: DUONEB *Not for PRN Use IH SCH ×4 (01:51→21:36)
[2017-09-08 04:22] LABS: Hematocrit 22.7 % (30.3-42.9); Hemoglobin 7.3 gm/dl (10.1-14.3); Mean Corpuscular HGB Conc 32 % (30-34); Mean Corpuscular Hemoglobin 28 pg (28-32); Mean Corpuscular Volume 88 fl (79-97); Platelet Count 203 K/mm3 (140-440); Red Blood Count 2.58 M/mm3 (3.65-5.03)
[2017-09-08] MEDS: fentaNYL DRIP Premix 2,000 MCG/100 ML BAG IV SCH ×4 (04:23→23:23)
[2017-09-08 04:26] LABS: Red Cell Distribution Width 22.5 % (13.2-15.2); White Blood Count 49.7 K/mm3 (4.5-11.0)
[2017-09-08] MEDS: LEVOPHED 8 MG in NACL 0.9% 250ML 242 ML IV SCH ×2 (04:31→19:31)
[2017-09-08] MEDS: PROTONIX 80 MG in NACL 0.9% 100 ML IV SCH ×2 (04:50→14:50)
[2017-09-08 05:06] LABS: Albumin 1.7 g/dL (3.9-5); Albumin/Globulin Ratio 0.6 %; Calcium 8.3 mg/dL (8.4-10.2); Chloride 92.1 mmol/L (98-107); Magnesium 2.3 mg/dL (1.7-2.3); Phosphorous 5.2 mg/dL (2.5-4.5); Total Protein 4.5 g/dL (6.3-8.2)
[2017-09-08 05:07] LABS: Anisocytosis 2+; Basophils % (Manual) 0 % (0.0-1.8); Blastocytes % (Manual) 0 %; Diff Status Complete; Eosinophils % (Manual) 0 % (0.0-4.3); Hypochromasia Few; Nucleated Red Blood Cells 0.5 % (0.0-0.9); Polychromasia Few; Smudge Cells Few; Total Cells Counted Percent 3.5
--- NOTE | 2017-09-08 06:59 | Progress Note ---
Assessment and Plan - Patient Problems (1) ESRD (end stage renal disease) on dialysis Current Visit: Yes Status: Acute Plan to address problem: Continue HD on MWF and Isolated UF on TTS as tolerated. Unable to do UF yesterday due to tachycardia and hypotension. HD tomorrow. Patient is on TPN. (2) Hyperkalemia Current Visit: Yes Status: Acute Plan to address problem: K level is better today. (3) Anemia Current Visit: No Status: Chronic Qualifiers: Anemia type: due to chronic kidney disease Iron deficiency anemia type: I Vitamin B12 deficiency anemia type: V Folate deficiency anemia type: F Bone marrow failure anemia type: B Hemolytic anemia type: H Other causes of anemia: O Chronic kidney disease stage: on chronic dialysis Qualified Code(s ): N18.6 - End stage renal disease; D63.1 - Anemia in chronic kidney disease; Z99.2 - Dependence on renal dialysis Plan to address problem: S/p multiple units of PRBC. Epogen on dialysis days. (4) Hypotension Current Visit: Yes Status: Chronic Qualifiers: Hypotension type: H Trimester: T Plan to address problem: On Levophed. (5) Volume overload Current Visit: Yes Status: Acute Qualifiers: Hypervolemia type: H Plan to address problem: UF as tolerated. (6) Leukocytosis Current Visit: Yes Status: Acute Qualifiers: Leukocytosis type: unspecified Qualified Code(s): D72.829 - Elevated white blood cell count, unspecified (7) Acute respiratory failure with hypoxemia Current Visit: Yes Status: Acute Plan to address problem: On the vent. (8) Sepsis Current Visit: Yes Status: Acute Qualifiers: Sepsis type: S Subjective Date of service: 09/08/17 Principal diagnosis: septic shock Interval history: Patient was seen and examined at the bedside. Patient remain intubated. Objective - Vital Signs Vital signs: Vital Signs - 12hr 09/07/17 09/07/17 09/07/17 19:00 19:05 19:15 Temperature Pulse Rate 96 H 94 H 92 H Pulse Rate [ Anterior Bilateral Throughout] Respiratory 20 20 20 Rate Respiratory Rate [Anterior Bilateral Throughout] Respiratory 20 Rate [ Generalized] Blood Pressure 103/52 106/52 O2 Sat by Pulse 100 100 100 Oximetry 09/07/17 09/07/17 09/07/17 19:19 19:30 19:45 Temperature 97.3 F L Pulse Rate 96 H 93 H Pulse Rate [ Anterior Bilateral Throughout] Respiratory 20 20 Rate Respiratory Rate [Anterior Bilateral Throughout] Respiratory Rate [ Generalized] Blood Pressure 91/49 97/51 O2 Sat by Pulse 100 100 Oximetry 09/07/17 09/07/17 09/07/17 20:00 20:13 20:16 Temperature Pulse Rate 94 H 94 H 97 H Pulse Rate [ Anterior Bilateral Throughout] Respiratory 16 20 Rate Respiratory Rate [Anterior Bilateral Throughout] Respiratory Rate [ Generalized] Blood Pressure 98/46 109/59 109/59 O2 Sat by Pulse 100 100 100 Oximetry 09/07/17 09/07/17 09/07/17 20:30 20:37 20:45 Temperature Pulse Rate 94 H 94 H Pulse Rate [ 99 H Anterior Bilateral Throughout] Respiratory 20 Rate Respiratory 22 Rate [Anterior Bilateral Throughout] Respiratory Rate [ Generalized] Blood Pressure 112/58 O2 Sat by Pulse 100 100 Oximetry 09/07/17 09/07/17 09/07/17 20:46 20:47 21:00 Temperature Pulse Rate 99 H 96 H Pulse Rate [ 102 H Anterior Bilateral Throughout] Respiratory 20 21 Rate Respiratory 16 Rate [Anterior Bilateral Throughout] Respiratory Rate [ Generalized] Blood Pressure 134/64 136/61 O2 Sat by Pulse 100 100 Oximetry 09/07/17 09/07/17 09/07/17 21:16 21:30 21:45 Temperature Pulse Rate 95 H 95 H 94 H Pulse Rate [ Anterior Bilateral Throughout] Respiratory 20 16 20 Rate Respiratory Rate [Anterior Bilateral Throughout] Respiratory Rate [ Generalized] Blood Pressure 119/63 109/58 102/49 O2 Sat by Pulse 100 100 100 Oximetry 09/07/17 09/07/17 09/07/17 22:00 22:15 22:30 Temperature Pulse Rate 94 H 94 H 97 H Pulse Rate [ Anterior Bilateral Throughout] Respiratory 19 20 20 Rate Respiratory Rate [Anterior Bilateral Throughout] Respiratory 20 Rate [ Generalized] Blood Pressure 112/60 111/59 112/62 O2 Sat by Pulse 100 100 100 Oximetry 09/07/17 09/07/17 09/07/17 22:45 23:00 23:15 Temperature Pulse Rate 94 H 93 H 94 H Pulse Rate [ Anterior Bilateral Throughout] Respiratory 20 17 20 Rate Respiratory Rate [Anterior Bilateral Throughout] Respiratory Rate [ Generalized] Blood Pressure 116/57 101/57 120/61 O2 Sat by Pulse 100 100 100 Oximetry 09/07/17 09/07/17 09/08/17 23:30 23:45 00:00 Temperature 98.0 F Pulse Rate 94 H 95 H 98 H Pulse Rate [ Anterior Bilateral Throughout] Respiratory 20 19 18 Rate Respiratory Rate [Anterior Bilateral Throughout] Respiratory Rate [ Generalized] Blood Pressure 123/59 116/59 108/61 O2 Sat by Pulse 100 100 100 Oximetry 09/08/17 09/08/17 09/08/17 00:06 00:15 00:30 Temperature Pulse Rate 100 H 98 H 97 H Pulse Rate [ Anterior Bilateral Throughout] Respiratory 20 20 11 L Rate Respiratory Rate [Anterior Bilateral Throughout] Respiratory Rate [ Generalized] Blood Pressure 108/61 102/53 110/50 O2 Sat by Pulse 100 100 100 Oximetry 09/08/17 09/08/17 09/08/17 00:35 00:46 01:00 Temperature Pulse Rate 102 H 98 H 98 H Pulse Rate [ Anterior Bilateral Throughout] Respiratory 20 10 L Rate Respiratory Rate [Anterior Bilateral Throughout] Respiratory Rate [ Generalized] Blood Pressure 110/54 100/52 110/54 O2 Sat by Pulse 97 100 96 Oximetry 09/08/17 09/08/17 09/08/17 01:15 01:30 01:45 Temperature Pulse Rate 96 H 98 H 99 H Pulse Rate [ 101 H Anterior Bilateral Throughout] Respiratory 10 L 18 20 Rate Respiratory 17 Rate [Anterior Bilateral Throughout] Respiratory Rate [ Generalized] Blood Pressure 108/55 112/55 97/50 O2 Sat by Pulse 100 100 96 Oximetry 09/08/17 09/08/17 09/08/17 01:55 02:00 02:15 Temperature Pulse Rate 100 H 103 H Pulse Rate [ 97 H Anterior Bilateral Throughout] Respiratory 18 19 Rate Respiratory 15 Rate [Anterior Bilateral Throughout] Respiratory Rate [ Generalized] Blood Pressure 111/60 102/78 O2 Sat by Pulse 100 100 Oximetry 09/08/17 09/08/17 09/08/17 02:30 02:46 02:55 Temperature Pulse Rate 100 H 102 H 100 H Pulse Rate [ Anterior Bilateral Throughout] Respiratory 10 L 14 20 Rate Respiratory Rate [Anterior Bilateral Throughout] Respiratory Rate [ Generalized] Blood Pressure 114/57 117/48 O2 Sat by Pulse 100 100 100 Oximetry 09/08/17 09/08/17 09/08/17 03:00 03:15 03:30 Temperature Pulse Rate 106 H 103 H 100 H Pulse Rate [ Anterior Bilateral Throughout] Respiratory 9 L 14 14 Rate Respiratory Rate [Anterior Bilateral Throughout] Respiratory Rate [ Generalized] Blood Pressure 108/48 104/54 107/56 O2 Sat by Pulse 100 100 100 Oximetry 09/08/17 09/08/17 09/08/17 03:46 03:55 03:59 Temperature 97.5 F L Pulse Rate 103 H 101 H Pulse Rate [ Anterior Bilateral Throughout] Respiratory 15 Rate Respiratory Rate [Anterior Bilateral Throughout] Respiratory Rate [ Generalized] Blood Pressure 108/50 103/52 O2 Sat by Pulse 100 100 Oximetry 09/08/17 09/08/17 09/08/17 04:00 04:15 04:30 Temperature Pulse Rate 100 H 101 H 103 H Pulse Rate [ Anterior Bilateral Throughout] Respiratory 15 18 18 Rate Respiratory Rate [Anterior Bilateral Throughout] Respiratory Rate [ Generalized] Blood Pressure 103/52 104/52 126/60 O2 Sat by Pulse 100 100 100 Oximetry 09/08/17 09/08/17 09/08/17 04:46 05:00 05:15 Temperature Pulse Rate 102 H 102 H 101 H Pulse Rate [ Anterior Bilateral Throughout] Respiratory 18 30 H 21 Rate Respiratory Rate [Anterior Bilateral Throughout] Respiratory Rate [ Generalized] Blood Pressure 102/53 112/55 106/53 O2 Sat by Pulse 100 100 100 Oximetry 09/08/17 09/08/17 09/08/17 05:30 05:40 05:45 Temperature Pulse Rate 108 H 108 H 102 H Pulse Rate [ Anterior Bilateral Throughout] Respiratory 18 20 20 Rate Respiratory Rate [Anterior Bilateral Throughout] Respiratory Rate [ Generalized] Blood Pressure 106/53 98/45 O2 Sat by Pulse 98 100 100 Oximetry 09/08/17 09/08/17 09/08/17 06:00 06:16 06:30 Temperature Pulse Rate 101 H 102 H 99 H Pulse Rate [ Anterior Bilateral Throughout] Respiratory 17 20 21 Rate Respiratory Rate [Anterior Bilateral Throughout] Respiratory Rate [ Generalized] Blood Pressure 101/51 101/49 100/48 O2 Sat by Pulse 100 100 100 Oximetry 09/08/17 06:35 Temperature Pulse Rate 99 H Pulse Rate [ Anterior Bilateral Throughout] Respiratory Rate Respiratory Rate [Anterior Bilateral Throughout] Respiratory Rate [ Generalized] Blood Pressure O2 Sat by Pulse 100 Oximetry - General Appearance General appearance: well-developed, appears stated age, obese, intubated (FiO2 40%), other (right IJ temp catheter) EENT: ATNC, PERRL Neck: supple Respiratory: Present: Other (coarse breath sounds) Cardiology: regular, S1S2, no murmurs Gastrointestinal: normoactive bowel sounds, no tenderness, obese, other (MERVIN drain, PEG tube noted) Integumentary: no rash Neurologic: other (opens eyes) Musculoskeletal: other (2+ edema of LEs noted) - Lab 09/08/17 04:05 09/08/17 04:05 Most recent lab results ABG pH 7.367 pH Units (7.350-7.450) 09/07/17 05:23 ABG pCO2 43.0 mm Hg 09/07/17 05:23 ABG pO2 85.4 mm Hg (80.0-90.0) 09/07/17 05:23 ABG HCO3 24.1 mmol/L (20.0-26.0) 09/07/17 05:23 ABG O2 Saturation 96.7 % (95.0-99.0) 09/07/17 05:23 Calcium 8.3 mg/dL (8.4-10.2) L 09/08/17 04:05 Phosphorus 5.20 mg/dL (2.5-4.5) H D 09/08/17 04:05 Magnesium 2.30 mg/dL (1.7-2.3) 09/08/17 04:05
[2017-09-08] MEDS ORDERED: NACL 0.9% 100 ML IV PRN (07:20)
[2017-09-08 09:37] LABS: ABG Base Excess -3.5 mmol/L (-2.0-3.0); ABG Oxygen Saturation 99.3 % (95.0-99.0); ABG PCO2 34.9 mm Hg; ABG PH 7.397 pH Units (7.350-7.450); ABG PO2 218.5 mm Hg (80.0-90.0)
[2017-09-08] MEDS: LEVEMIR SUB-Q SCH (09:48)
[2017-09-08] MEDS: DIFLUCAN 200 MG/100 ML BAG IV SCH (09:48)
[2017-09-08] MEDS ORDERED: MERREM/NS 500 MG/50 ML 500 MG/50 ML BAG IV SCH (13:00)
--- NOTE | 2017-09-08 13:28 | Progress Note ---
Assessment and Plan Assessment: 1) Sepsis with septic shock: still levophed requirements, leukocytosis worsening today; new source ? GI bleed . Repeat CT no abscess no collection. -CRP= 34 -->30 -->19-->0.1 ->2.8 -procalcitonin=1.3 -->7.6 -->3.9 2) Bowel obstruction / suspect ?gastric perforation ? peritonitis -S/P Exlap, G-tube placement, EGD, abdominal washout and removal of PD -OR findings - bowel obstruction due to entanglement of PD cath, abscess cavity in LUQ and ? suspect perforation of unclear location 3) CA-UTI: chronic ivan exchanged every 4 weeks and ureteral stents in place which are exchanged every 6 months ? urine cultures still pending should r/o MDR bacteria 4) Paraplegia 5) ESRD on PD - no evidence of peritonitis, wbc count 2. EXTERN and Diphteroids on peritoneal fluid likely contaminants. 6) Recent pancreatitis 7) Penicillin allergy-has taken keflex w/o problems 8) Presumed Surgical wound infection / dehiscence ? 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 11) Sacral stage II Plan: -remove ivan -GI med eval in view of low Hg and recent melena -Hem eval in view of persistently elevated WBC of unclear source -Surgery to repeat methylene blue test -continue zyvox and fluconazole day 6 of 10 -add meropenem -monitor leukocytosis -trach on Saturday -wound care sacral stage II Discussed with Surgery and ICU staff Thank you Dr Baez for your consultation, will follow up with you. Ramya Lang MD Infectious Diseases Specialist [facility] ([facility] M [phone] O [phone] Subjective Date of service: 09/08/17 Principal diagnosis: septic shock Interval history: Pt remains intubated on the vent on levophed at 8, on TPN, fentanyl, no fever. Microbiology: Blood cultures: 08/08 neg 08/12 neg 08/16 neg 08/20 neg 08/29 neg 09/06 ngtd Urine cultures: 08/08 10-100K skin grace Respiratory cultures: 08/30 tracheal asp MRSA Wound cultures: 08/26 Staph aureus and Kristine 08/28 MRSA, E faecalis, Kristine albicans Stool cultures: Other: 08/08 peritoneal fluid + EXTERN/Diphteroids Current Antimicrobials: zyvox 09/03 fluconazole 09/03 Previous Antimicrobials: 08/10 levaquin 08/16 vancomycin 08/13 meropenem 08/16 fluconazole Micafungin 08/29 meropenem 08/29 Objective - Exam Narrative Exam: General appearance: sedated on vent Eyes: anicteric sclerae, moist conjunctivae; no lid-lag; PERRLA HENT: Atraumatic; limited OP ETT, NGT Neck: Trachea midline; supple, no thyromegaly or lymphadenopathy Lungs: coarse BS moreno CV: RRR, no murmurs Abdomen: soft, midline surgical wound with surtures. Gtube. drain Extremities: + peripheral edema + leg ulcer Skin: right groin old fem line wound no erythema, no drainage Psych: sedated. Neuro: sedated Lines: right IJ vas cath / Right IJ Nair 08/16 - Constitutional Vitals: Vital Signs Temp Pulse Resp BP Pulse Ox 98.8 F 94 H 20 102/51 100 09/08/17 12:00 09/08/17 12:13 09/08/17 11:15 09/08/17 12:13 09/08/17 12:13 Temperature -Last 24 Hours Temperature 98.8 F Temperature 97.7 F Temperature 97.5 F Temperature 98.0 F Temperature 97.3 F Temperature 99.9 F - Labs CBC & Chem 7: 09/08/17 04:05 09/08/17 04:05 Labs: Abnormal lab results 09/07/17 09/07/17 09/07/17 Range/Units 11:48 17:07 18:21 WBC (4.5-11.0) K/mm3 RBC (3.65-5.03) M/mm3 Hgb (10.1-14.3) gm/dl Hct (30.3-42.9) % RDW (13.2-15.2) % Seg Neuts % (Manual) (40.0-70.0) % Lymphocytes % (Manual) (13.4-35.0) % Seg Neutrophils # Man (1.8-7.7) K/mm3 Lymphocytes # (Manual) (1.2-5.4) K/mm3 Monocytes # (Manual) (0.0-0.8) K/mm3 ABG pO2 (80.0-90.0) mm Hg ABG O2 Saturation (95.0-99.0) % ABG Base Excess (-2.0-3.0) mmol/L ABG Hemoglobin (12.0-16.0) gm/dl Sodium (137-145) mmol/L Chloride (98-107) mmol/L BUN (7-17) mg/dL Creatinine (0.7-1.2) mg/dL Glucose (65-100) mg/dL POC Glucose 200 H 181 H (70-105) Calcium (8.4-10.2) mg/dL Phosphorus (2.5-4.5) mg/dL Alkaline Phosphatase (35-129) units/L Total Protein (6.3-8.2) g/dL Albumin (3.9-5) g/dL Crossmatch See Detail 09/08/17 09/08/17 09/08/17 Range/Units 00:06 04:05 04:05 WBC 49.7 H* (4.5-11.0) K/mm3 RBC 2.58 L (3.65-5.03) M/mm3 Hgb 7.3 L (10.1-14.3) gm/dl Hct 22.7 L (30.3-42.9) % RDW 22.5 H (13.2-15.2) % Seg Neuts % (Manual) 90.5 H (40.0-70.0) % Lymphocytes % (Manual) 1.5 L (13.4-35.0) % Seg Neutrophils # Man 45.0 H (1.8-7.7) K/mm3 Lymphocytes # (Manual) 0.7 L (1.2-5.4) K/mm3 Monocytes # (Manual) 1.7 H (0.0-0.8) K/mm3 ABG pO2 (80.0-90.0) mm Hg ABG O2 Saturation (95.0-99.0) % ABG Base Excess (-2.0-3.0) mmol/L ABG Hemoglobin (12.0-16.0) gm/dl Sodium 132 L (137-145) mmol/L Chloride 92.1 L (98-107) mmol/L BUN 82 H (7-17) mg/dL Creatinine 2.2 H (0.7-1.2) mg/dL Glucose 162 H (65-100) mg/dL POC Glucose 168 H (70-105) Calcium 8.3 L (8.4-10.2) mg/dL Phosphorus 5.20 H D (2.5-4.5) mg/dL Alkaline Phosphatase 199 H (35-129) units/L Total Protein 4.5 L (6.3-8.2) g/dL Albumin 1.7 L (3.9-5) g/dL Crossmatch 09/08/17 09/08/17 Range/Units 04:41 09:21 WBC (4.5-11.0) K/mm3 RBC (3.65-5.03) M/mm3 Hgb (10.1-14.3) gm/dl Hct (30.3-42.9) % RDW (13.2-15.2) % Seg Neuts % (Manual) (40.0-70.0) % Lymphocytes % (Manual) (13.4-35.0) % Seg Neutrophils # Man (1.8-7.7) K/mm3 Lymphocytes # (Manual) (1.2-5.4) K/mm3 Monocytes # (Manual) (0.0-0.8) K/mm3 ABG pO2 218.5 H (80.0-90.0) mm Hg ABG O2 Saturation 99.3 H (95.0-99.0) % ABG Base Excess -3.5 L (-2.0-3.0) mmol/L ABG Hemoglobin 7.7 L (12.0-16.0) gm/dl Sodium (137-145) mmol/L Chloride (98-107) mmol/L BUN (7-17) mg/dL Creatinine (0.7-1.2) mg/dL Glucose (65-100) mg/dL POC Glucose 235 H (70-105) Calcium (8.4-10.2) mg/dL Phosphorus (2.5-4.5) mg/dL Alkaline Phosphatase (35-129) units/L Total Protein (6.3-8.2) g/dL Albumin (3.9-5) g/dL Crossmatch
--- NOTE | 2017-09-08 13:30 | Progress Note ---
Assessment and Plan resp failure with prolonged vent- sx in am. npo, abx continue supportive care Subjective Date of service: 09/08/17 Patient Reports: Positive: afebrile, other (no acute events) Objective Vital Signs - 12hr 09/08/17 09/08/17 09/08/17 01:30 01:45 01:55 Temperature Pulse Rate 98 H 99 H Pulse Rate [ 101 H 97 H Anterior Bilateral Throughout] Pulse Rate [ From Monitor] Pulse Rate [ Throughout] Respiratory 18 20 Rate Respiratory 17 15 Rate [Anterior Bilateral Throughout] Respiratory Rate [ Throughout] Blood Pressure 112/55 97/50 O2 Sat by Pulse 100 96 Oximetry 09/08/17 09/08/17 09/08/17 02:00 02:15 02:30 Temperature Pulse Rate 100 H 103 H 100 H Pulse Rate [ Anterior Bilateral Throughout] Pulse Rate [ From Monitor] Pulse Rate [ Throughout] Respiratory 18 19 10 L Rate Respiratory Rate [Anterior Bilateral Throughout] Respiratory Rate [ Throughout] Blood Pressure 111/60 102/78 114/57 O2 Sat by Pulse 100 100 100 Oximetry 09/08/17 09/08/17 09/08/17 02:46 02:55 03:00 Temperature Pulse Rate 102 H 100 H 106 H Pulse Rate [ Anterior Bilateral Throughout] Pulse Rate [ From Monitor] Pulse Rate [ Throughout] Respiratory 14 20 9 L Rate Respiratory Rate [Anterior Bilateral Throughout] Respiratory Rate [ Throughout] Blood Pressure 117/48 108/48 O2 Sat by Pulse 100 100 100 Oximetry 09/08/17 09/08/17 09/08/17 03:15 03:30 03:46 Temperature Pulse Rate 103 H 100 H 103 H Pulse Rate [ Anterior Bilateral Throughout] Pulse Rate [ From Monitor] Pulse Rate [ Throughout] Respiratory 14 14 15 Rate Respiratory Rate [Anterior Bilateral Throughout] Respiratory Rate [ Throughout] Blood Pressure 104/54 107/56 108/50 O2 Sat by Pulse 100 100 100 Oximetry 09/08/17 09/08/17 09/08/17 03:55 03:59 04:00 Temperature 97.5 F L Pulse Rate 101 H 100 H Pulse Rate [ Anterior Bilateral Throughout] Pulse Rate [ From Monitor] Pulse Rate [ Throughout] Respiratory 15 Rate Respiratory Rate [Anterior Bilateral Throughout] Respiratory Rate [ Throughout] Blood Pressure 103/52 103/52 O2 Sat by Pulse 100 100 Oximetry 09/08/17 09/08/17 09/08/17 04:15 04:30 04:46 Temperature Pulse Rate 101 H 103 H 102 H Pulse Rate [ Anterior Bilateral Throughout] Pulse Rate [ From Monitor] Pulse Rate [ Throughout] Respiratory 18 18 18 Rate Respiratory Rate [Anterior Bilateral Throughout] Respiratory Rate [ Throughout] Blood Pressure 104/52 126/60 102/53 O2 Sat by Pulse 100 100 100 Oximetry 09/08/17 09/08/17 09/08/17 05:00 05:15 05:30 Temperature Pulse Rate 102 H 101 H 108 H Pulse Rate [ Anterior Bilateral Throughout] Pulse Rate [ From Monitor] Pulse Rate [ Throughout] Respiratory 30 H 21 18 Rate Respiratory Rate [Anterior Bilateral Throughout] Respiratory Rate [ Throughout] Blood Pressure 112/55 106/53 106/53 O2 Sat by Pulse 100 100 98 Oximetry 09/08/17 09/08/17 09/08/17 05:40 05:45 06:00 Temperature Pulse Rate 108 H 102 H 101 H Pulse Rate [ Anterior Bilateral Throughout] Pulse Rate [ From Monitor] Pulse Rate [ Throughout] Respiratory 20 20 17 Rate Respiratory Rate [Anterior Bilateral Throughout] Respiratory Rate [ Throughout] Blood Pressure 98/45 101/51 O2 Sat by Pulse 100 100 100 Oximetry 09/08/17 09/08/17 09/08/17 06:16 06:30 06:35 Temperature Pulse Rate 102 H 99 H 99 H Pulse Rate [ Anterior Bilateral Throughout] Pulse Rate [ From Monitor] Pulse Rate [ Throughout] Respiratory 20 21 Rate Respiratory Rate [Anterior Bilateral Throughout] Respiratory Rate [ Throughout] Blood Pressure 101/49 100/48 O2 Sat by Pulse 100 100 100 Oximetry 09/08/17 09/08/17 09/08/17 06:45 07:00 07:15 Temperature Pulse Rate 98 H 99 H 99 H Pulse Rate [ Anterior Bilateral Throughout] Pulse Rate [ From Monitor] Pulse Rate [ Throughout] Respiratory 21 12 19 Rate Respiratory Rate [Anterior Bilateral Throughout] Respiratory Rate [ Throughout] Blood Pressure 103/50 105/56 106/51 O2 Sat by Pulse 100 100 100 Oximetry 09/08/17 09/08/17 09/08/17 07:30 07:45 08:00 Temperature 97.7 F Pulse Rate 99 H 98 H 97 H Pulse Rate [ Anterior Bilateral Throughout] Pulse Rate [ 97 H From Monitor] Pulse Rate [ Throughout] Respiratory 20 15 20 Rate Respiratory Rate [Anterior Bilateral Throughout] Respiratory Rate [ Throughout] Blood Pressure 110/52 103/61 109/55 O2 Sat by Pulse 100 100 100 Oximetry 09/08/17 09/08/17 09/08/17 08:15 08:30 08:46 Temperature Pulse Rate 97 H 96 H 98 H Pulse Rate [ Anterior Bilateral Throughout] Pulse Rate [ From Monitor] Pulse Rate [ Throughout] Respiratory 19 20 20 Rate Respiratory Rate [Anterior Bilateral Throughout] Respiratory Rate [ Throughout] Blood Pressure 99/50 101/52 100/53 O2 Sat by Pulse 100 100 100 Oximetry 09/08/17 09/08/17 09/08/17 09:00 09:09 09:16 Temperature Pulse Rate 97 H 100 H Pulse Rate [ Anterior Bilateral Throughout] Pulse Rate [ From Monitor] Pulse Rate [ 99 H Throughout] Respiratory 20 20 Rate Respiratory Rate [Anterior Bilateral Throughout] Respiratory 20 Rate [ Throughout] Blood Pressure 111/50 101/35 O2 Sat by Pulse 100 100 Oximetry 09/08/17 09/08/17 09/08/17 09:19 09:21 09:30 Temperature Pulse Rate 99 H 98 H Pulse Rate [ Anterior Bilateral Throughout] Pulse Rate [ From Monitor] Pulse Rate [ 98 H Throughout] Respiratory 20 Rate Respiratory Rate [Anterior Bilateral Throughout] Respiratory 20 Rate [ Throughout] Blood Pressure 111/50 103/44 O2 Sat by Pulse 100 100 Oximetry 09/08/17 09/08/17 09/08/17 09:45 10:00 10:15 Temperature Pulse Rate 99 H 97 H 98 H Pulse Rate [ Anterior Bilateral Throughout] Pulse Rate [ From Monitor] Pulse Rate [ Throughout] Respiratory 20 20 20 Rate Respiratory Rate [Anterior Bilateral Throughout] Respiratory Rate [ Throughout] Blood Pressure 105/51 108/48 100/81 O2 Sat by Pulse 100 100 100 Oximetry 09/08/17 09/08/17 09/08/17 10:30 10:45 11:00 Temperature Pulse Rate 96 H 96 H 96 H Pulse Rate [ Anterior Bilateral Throughout] Pulse Rate [ From Monitor] Pulse Rate [ Throughout] Respiratory 20 14 20 Rate Respiratory Rate [Anterior Bilateral Throughout] Respiratory Rate [ Throughout] Blood Pressure 92/54 92/53 92/53 O2 Sat by Pulse 100 100 100 Oximetry 09/08/17 09/08/17 09/08/17 11:15 12:00 12:13 Temperature 98.8 F Pulse Rate 93 H 94 H Pulse Rate [ Anterior Bilateral Throughout] Pulse Rate [ From Monitor] Pulse Rate [ Throughout] Respiratory 20 Rate Respiratory Rate [Anterior Bilateral Throughout] Respiratory Rate [ Throughout] Blood Pressure 98/50 102/51 O2 Sat by Pulse 100 100 Oximetry - General physical appearance no distress - Respiratory normal respiratory effort (on vent), other - Abdomen soft, wound (dressing intact) - Labs 09/08/17 04:05 09/08/17 04:05 Diabetes panel 09/08/17 Range/Units 04:05 Sodium 132 L (137-145) mmol/L Potassium 4.0 (3.6-5.0) mmol/L Chloride 92.1 L (98-107) mmol/L Carbon Dioxide 22 (22-30) mmol/L BUN 82 H (7-17) mg/dL Creatinine 2.2 H (0.7-1.2) mg/dL Glucose 162 H (65-100) mg/dL Calcium 8.3 L (8.4-10.2) mg/dL AST 14 (5-40) units/L ALT 16 (7-56) units/L Alkaline Phosphatase 199 H (35-129) units/L Total Protein 4.5 L (6.3-8.2) g/dL Albumin 1.7 L (3.9-5) g/dL Calcium panel 09/08/17 Range/Units 04:05 Calcium 8.3 L (8.4-10.2) mg/dL Phosphorus 5.20 H D (2.5-4.5) mg/dL Albumin 1.7 L (3.9-5) g/dL Pituitary panel 09/08/17 Range/Units 04:05 Sodium 132 L (137-145) mmol/L Potassium 4.0 (3.6-5.0) mmol/L Chloride 92.1 L (98-107) mmol/L Carbon Dioxide 22 (22-30) mmol/L BUN 82 H (7-17) mg/dL Creatinine 2.2 H (0.7-1.2) mg/dL Glucose 162 H (65-100) mg/dL Calcium 8.3 L (8.4-10.2) mg/dL Adrenal panel 09/08/17 Range/Units 04:05 Sodium 132 L (137-145) mmol/L Potassium 4.0 (3.6-5.0) mmol/L Chloride 92.1 L (98-107) mmol/L Carbon Dioxide 22 (22-30) mmol/L BUN 82 H (7-17) mg/dL Creatinine 2.2 H (0.7-1.2) mg/dL Glucose 162 H (65-100) mg/dL Calcium 8.3 L (8.4-10.2) mg/dL Total Bilirubin 1.00 (0.1-1.2) mg/dL AST 14 (5-40) units/L ALT 16 (7-56) units/L Alkaline Phosphatase 199 H (35-129) units/L Total Protein 4.5 L (6.3-8.2) g/dL Albumin 1.7 L (3.9-5) g/dL
--- NOTE | 2017-09-08 14:07 | Progress Note ---
Assessment and Plan 62 y/o female originally admitted with hypotension, now back to ICU secondary to worsening hypotension, concern for sepsis, with acute respiratory failure post-op from ex-lap for abdominal distention and possible ileus, now back from OR after worsening respiratory failure, requiring re-intubation and wash out of abdomen 1. Family is agreeable to trach. Plan is for tomorrow Family has agreed to LTACH placement as well. However, suggest that LTACH be firmly aware of abdominal issues and have surgery there that is willing to follow. 2. HD per renal 3. Continue PSV trials as tolerated. Rest on rate while on HD 4. Abx therapy as previously ordered per ID. CT is stable of abdomen 5. Wean levo for MAPS >60, have not been able to come off as she drops immediately. 6. Called by [facility]MS in regards to surgery and ID which I have spoken to surgery. Stopping steroids as of today. 7. Spoke with ID and surgery, I have ordered GI consultation given concern for GI Bleed outside of anything related to surgery Overall prognosis is guarded to poor CCT 31 Subjective Date of service: 09/08/17 Principal diagnosis: septic shock Interval history: No acute events. Plan for Trach tomorrow. HgB down to 7.3 today. Still on vasopressor therapy. Has required 6 units of PRBC's since being admitted to the hospital. Objective Vital Signs - 12hr 09/08/17 09/08/17 09/08/17 02:15 02:30 02:46 Temperature Pulse Rate 103 H 100 H 102 H Pulse Rate [ From Monitor] Pulse Rate [ Throughout] Respiratory 19 10 L 14 Rate Respiratory Rate [ Throughout] Blood Pressure 102/78 114/57 117/48 O2 Sat by Pulse 100 100 100 Oximetry 09/08/17 09/08/17 09/08/17 02:55 03:00 03:15 Temperature Pulse Rate 100 H 106 H 103 H Pulse Rate [ From Monitor] Pulse Rate [ Throughout] Respiratory 20 9 L 14 Rate Respiratory Rate [ Throughout] Blood Pressure 108/48 104/54 O2 Sat by Pulse 100 100 100 Oximetry 09/08/17 09/08/17 09/08/17 03:30 03:46 03:55 Temperature 97.5 F L Pulse Rate 100 H 103 H Pulse Rate [ From Monitor] Pulse Rate [ Throughout] Respiratory 14 15 Rate Respiratory Rate [ Throughout] Blood Pressure 107/56 108/50 O2 Sat by Pulse 100 100 Oximetry 09/08/17 09/08/17 09/08/17 03:59 04:00 04:15 Temperature Pulse Rate 101 H 100 H 101 H Pulse Rate [ From Monitor] Pulse Rate [ Throughout] Respiratory 15 18 Rate Respiratory Rate [ Throughout] Blood Pressure 103/52 103/52 104/52 O2 Sat by Pulse 100 100 100 Oximetry 09/08/17 09/08/17 09/08/17 04:30 04:46 05:00 Temperature Pulse Rate 103 H 102 H 102 H Pulse Rate [ From Monitor] Pulse Rate [ Throughout] Respiratory 18 18 30 H Rate Respiratory Rate [ Throughout] Blood Pressure 126/60 102/53 112/55 O2 Sat by Pulse 100 100 100 Oximetry 09/08/17 09/08/17 09/08/17 05:15 05:30 05:40 Temperature Pulse Rate 101 H 108 H 108 H Pulse Rate [ From Monitor] Pulse Rate [ Throughout] Respiratory 21 18 20 Rate Respiratory Rate [ Throughout] Blood Pressure 106/53 106/53 O2 Sat by Pulse 100 98 100 Oximetry 09/08/17 09/08/17 09/08/17 05:45 06:00 06:16 Temperature Pulse Rate 102 H 101 H 102 H Pulse Rate [ From Monitor] Pulse Rate [ Throughout] Respiratory 20 17 20 Rate Respiratory Rate [ Throughout] Blood Pressure 98/45 101/51 101/49 O2 Sat by Pulse 100 100 100 Oximetry 09/08/17 09/08/17 09/08/17 06:30 06:35 06:45 Temperature Pulse Rate 99 H 99 H 98 H Pulse Rate [ From Monitor] Pulse Rate [ Throughout] Respiratory 21 21 Rate Respiratory Rate [ Throughout] Blood Pressure 100/48 103/50 O2 Sat by Pulse 100 100 100 Oximetry 09/08/17 09/08/17 09/08/17 07:00 07:15 07:30 Temperature Pulse Rate 99 H 99 H 99 H Pulse Rate [ From Monitor] Pulse Rate [ Throughout] Respiratory 12 19 20 Rate Respiratory Rate [ Throughout] Blood Pressure 105/56 106/51 110/52 O2 Sat by Pulse 100 100 100 Oximetry 09/08/17 09/08/17 09/08/17 07:45 08:00 08:15 Temperature 97.7 F Pulse Rate 98 H 97 H 97 H Pulse Rate [ 97 H From Monitor] Pulse Rate [ Throughout] Respiratory 15 20 19 Rate Respiratory Rate [ Throughout] Blood Pressure 103/61 109/55 99/50 O2 Sat by Pulse 100 100 100 Oximetry 09/08/17 09/08/17 09/08/17 08:30 08:46 09:00 Temperature Pulse Rate 96 H 98 H 97 H Pulse Rate [ From Monitor] Pulse Rate [ Throughout] Respiratory 20 20 20 Rate Respiratory Rate [ Throughout] Blood Pressure 101/52 100/53 111/50 O2 Sat by Pulse 100 100 100 Oximetry 09/08/17 09/08/17 09/08/17 09:09 09:16 09:19 Temperature Pulse Rate 100 H Pulse Rate [ From Monitor] Pulse Rate [ 99 H 98 H Throughout] Respiratory 20 Rate Respiratory 20 20 Rate [ Throughout] Blood Pressure 101/35 O2 Sat by Pulse 100 Oximetry 09/08/17 09/08/17 09/08/17 09:21 09:30 09:45 Temperature Pulse Rate 99 H 98 H 99 H Pulse Rate [ From Monitor] Pulse Rate [ Throughout] Respiratory 20 20 Rate Respiratory Rate [ Throughout] Blood Pressure 111/50 103/44 105/51 O2 Sat by Pulse 100 100 100 Oximetry 09/08/17 09/08/17 09/08/17 10:00 10:15 10:30 Temperature Pulse Rate 97 H 98 H 96 H Pulse Rate [ From Monitor] Pulse Rate [ Throughout] Respiratory 20 20 20 Rate Respiratory Rate [ Throughout] Blood Pressure 108/48 100/81 92/54 O2 Sat by Pulse 100 100 100 Oximetry 09/08/17 09/08/17 09/08/17 10:45 11:00 11:15 Temperature Pulse Rate 96 H 96 H 93 H Pulse Rate [ From Monitor] Pulse Rate [ Throughout] Respiratory 14 20 20 Rate Respiratory Rate [ Throughout] Blood Pressure 92/53 92/53 98/50 O2 Sat by Pulse 100 100 100 Oximetry 09/08/17 09/08/17 12:00 12:13 Temperature 98.8 F Pulse Rate 94 H Pulse Rate [ From Monitor] Pulse Rate [ Throughout] Respiratory Rate Respiratory Rate [ Throughout] Blood Pressure 102/51 O2 Sat by Pulse 100 Oximetry Constitutional: other (critically ill on vent, obese) Eyes: non-icteric ENT: oropharynx moist, other (NGT) Neck: supple, no lymphadenopathy Effort: mildly labored Ascultation: Bilateral: clear (anteriorly), diminished breath sounds, wheezes ( faint expiratory wheezes), rhonchi (occ), other (coarse BS bilaterally) Cardiovascular: regular rate and rhythm Gastrointestinal: absent bowel sounds, non-tender, other (abdominal incision with new dressing noted, obese) Integumentary: normal Extremities: no cyanosis, pink and warm, edema (3+ bilateral LE edema) Neurologic: non-focal exam, pupils equal and round, other (somnolent) Psychiatric: mood appropriate, affect normal CBC and BMP: 09/08/17 04:05 09/08/17 04:05 ABG, PT/INR, D-dimer: ABG POC ABG pH 7.335 (7.35-7.45) L 08/30/17 03:31 ABG pH 7.397 pH Units (7.350-7.450) 09/08/17 09:21 POC ABG pCO2 44.1 (35-45) 08/30/17 03:31 ABG pCO2 34.9 mm Hg 09/08/17 09:21 POC ABG pO2 117 (80-105) H 08/30/17 03:31 ABG pO2 218.5 mm Hg (80.0-90.0) H 09/08/17 09:21 POC ABG HCO3 23.5 08/30/17 03:31 POC ABG Total CO2 25 08/30/17 03:31 POC ABG O2 Sat 98 08/30/17 03:31 ABG O2 Saturation 99.3 % (95.0-99.0) H 09/08/17 09:21 PT/INR, D-dimer PT 15.1 Sec. (12.2-14.9) H 08/31/17 18:15 INR 1.13 (0.87-1.13) 08/31/17 18:15 Abnormal lab findings: Abnormal Labs 08/08/17 08/08/17 08/09/17 21:23 21:31 11:19 WBC 15.7 H RBC 2.93 L Hgb 8.7 L Hct 26.8 L MCV MCH RDW 19.2 H Plt Count Lymph % (Auto) Brule % (Auto) Brule # Seg Neutrophils % Seg Neuts % (Manual) Lymphocytes % (Manual) Monocytes % (Manual) Nucleated RBC % Seg Neutrophils # Seg Neutrophils # Man Lymphocytes # (Manual) Monocytes # (Manual) Eosinophils # (Manual) Basophils # (Manual) PT INR POC ABG pH 7.490 H ABG pH POC ABG pCO2 POC ABG pO2 122 H ABG pO2 ABG O2 Saturation ABG Base Excess ABG Hemoglobin Oxyhemoglobin Sodium Potassium Chloride Carbon Dioxide BUN Creatinine Glucose POC Glucose Calcium Phosphorus Magnesium AST ALT Alkaline Phosphatase Troponin T 0.133 H* C-Reactive Protein Total Protein Albumin Triglycerides HDL Cholesterol 26 L Miscellaneous Test Crossmatch 08/09/17 08/10/17 08/10/17 13:25 04:45 04:45 WBC 15.5 H RBC 2.97 L Hgb 8.9 L Hct 27.0 L MCV MCH RDW 19.2 H Plt Count Lymph % (Auto) Brule % (Auto) Brule # Seg Neutrophils % Seg Neuts % (Manual) 73.0 H Lymphocytes % (Manual) 7.0 L Monocytes % (Manual) 14.0 H Nucleated RBC % Seg Neutrophils # Seg Neutrophils # Man 11.3 H Lymphocytes # (Manual) 1.1 L Monocytes # (Manual) 2.2 H Eosinophils # (Manual) Basophils # (Manual) 0.2 H PT INR POC ABG pH ABG pH POC ABG pCO2 POC ABG pO2 ABG pO2 ABG O2 Saturation ABG Base Excess ABG Hemoglobin Oxyhemoglobin Sodium Potassium 3.3 L Chloride 97.3 L Carbon Dioxide 21 L BUN 23 H Creatinine 6.5 H Glucose POC Glucose Calcium 7.3 L Phosphorus Magnesium AST ALT Alkaline Phosphatase 138 H Troponin T 0.132 H* C-Reactive Protein Total Protein 4.8 L Albumin 1.4 L Triglycerides HDL Cholesterol Miscellaneous Test Crossmatch 08/11/17 08/11/17 08/12/17 04:00 04:00 05:50 WBC 19.3 H RBC 3.10 L Hgb 9.5 L Hct 28.2 L MCV MCH RDW 19.2 H Plt Count 463 H Lymph % (Auto) 7.5 L Brule % (Auto) 14.6 H Brule # 2.8 H Seg Neutrophils % 77.0 H Seg Neuts % (Manual) Lymphocytes % (Manual) Monocytes % (Manual) Nucleated RBC % Seg Neutrophils # 14.8 H Seg Neutrophils # Man Lymphocytes # (Manual) Monocytes # (Manual) Eosinophils # (Manual) Basophils # (Manual) PT INR POC ABG pH ABG pH POC ABG pCO2 POC ABG pO2 ABG pO2 ABG O2 Saturation ABG Base Excess ABG Hemoglobin Oxyhemoglobin Sodium 136 L 136 L Potassium 3.3 L Chloride 96.3 L 96.6 L Carbon Dioxide BUN 26 H 26 H Creatinine 6.4 H 6.2 H Glucose 135 H 133 H POC Glucose Calcium 8.2 L Phosphorus Magnesium 1.30 L AST ALT Alkaline Phosphatase 139 H Troponin T C-Reactive Protein Total Protein 5.5 L Albumin 1.7 L Triglycerides HDL Cholesterol Miscellaneous Test Crossmatch 08/12/17 08/12/17 08/12/17 05:50 05:50 05:50 WBC 20.1 H RBC 3.06 L Hgb 9.3 L Hct 27.9 L MCV MCH RDW 18.4 H Plt Count 471 H Lymph % (Auto) Brule % (Auto) Brule # Seg Neutrophils % Seg Neuts % (Manual) 85.0 H Lymphocytes % (Manual) 8.0 L Monocytes % (Manual) Nucleated RBC % Seg Neutrophils # Seg Neutrophils # Man 17.1 H Lymphocytes # (Manual) Monocytes # (Manual) 1.0 H Eosinophils # (Manual) Basophils # (Manual) PT 15.2 H INR 1.14 H POC ABG pH ABG pH POC ABG pCO2 POC ABG pO2 ABG pO2 ABG O2 Saturation ABG Base Excess ABG Hemoglobin Oxyhemoglobin Sodium Potassium Chloride Carbon Dioxide BUN Creatinine Glucose POC Glucose Calcium Phosphorus Magnesium AST ALT Alkaline Phosphatase Troponin T C-Reactive Protein 28.90 H Total Protein Albumin Triglycerides HDL Cholesterol Miscellaneous Test Crossmatch 08/12/17 08/13/17 08/13/17 16:23 06:14 06:14 WBC 21.8 H RBC 3.11 L Hgb 9.4 L Hct 28.2 L MCV MCH RDW 18.2 H Plt Count 492 H Lymph % (Auto) Brule % (Auto) Brule # Seg Neutrophils % Seg Neuts % (Manual) 73.0 H Lymphocytes % (Manual) 2.0 L Monocytes % (Manual) 15 H Nucleated RBC % Seg Neutrophils # Seg Neutrophils # Man 15.9 H Lymphocytes # (Manual) 0.4 L Monocytes # (Manual) 2.4 H Eosinophils # (Manual) Basophils # (Manual) PT INR POC ABG pH ABG pH POC ABG pCO2 POC ABG pO2 ABG pO2 ABG O2 Saturation ABG Base Excess ABG Hemoglobin Oxyhemoglobin Sodium Potassium Chloride 96.2 L Carbon Dioxide BUN 28 H Creatinine 5.6 H Glucose 114 H POC Glucose Calcium Phosphorus Magnesium AST ALT Alkaline Phosphatase Troponin T C-Reactive Protein 26.10 H Total Protein Albumin Triglycerides HDL Cholesterol Miscellaneous Test Crossmatch 08/13/17 08/14/17 08/14/17 16:39 04:00 04:00 WBC 22.1 H RBC 3.25 L Hgb 9.9 L Hct 29.5 L MCV MCH RDW 17.9 H Plt Count 525 H Lymph % (Auto) Brule % (Auto) Brule # Seg Neutrophils % Seg Neuts % (Manual) 74.0 H Lymphocytes % (Manual) 8.0 L Monocytes % (Manual) 12.0 H Nucleated RBC % Seg Neutrophils # Seg Neutrophils # Man 16.4 H Lymphocytes # (Manual) Monocytes # (Manual) 2.7 H Eosinophils # (Manual) Basophils # (Manual) PT INR POC ABG pH ABG pH POC ABG pCO2 POC ABG pO2 ABG pO2 ABG O2 Saturation ABG Base Excess ABG Hemoglobin Oxyhemoglobin Sodium 134 L Potassium 3.3 L Chloride 93.3 L Carbon Dioxide BUN 27 H Creatinine 6.0 H Glucose 152 H POC Glucose 151 H Calcium Phosphorus Magnesium AST ALT Alkaline Phosphatase Troponin T C-Reactive Protein Total Protein Albumin Triglycerides HDL Cholesterol Miscellaneous Test Crossmatch 08/15/17 08/16/17 08/16/17 09:10 09:50 09:50 WBC 31.1 H RBC 3.21 L Hgb 9.6 L Hct 29.3 L MCV MCH RDW 18.1 H Plt Count 642 H Lymph % (Auto) Brule % (Auto) Brule # Seg Neutrophils % Seg Neuts % (Manual) 74.0 H Lymphocytes % (Manual) 4.0 L Monocytes % (Manual) 9.0 H Nucleated RBC % Seg Neutrophils # Seg Neutrophils # Man 23.0 H Lymphocytes # (Manual) Monocytes # (Manual) 2.8 H Eosinophils # (Manual) Basophils # (Manual) PT INR POC ABG pH ABG pH POC ABG pCO2 POC ABG pO2 ABG pO2 ABG O2 Saturation ABG Base Excess ABG Hemoglobin Oxyhemoglobin Sodium 136 L 136 L Potassium 3.5 L Chloride 97.6 L 94.9 L Carbon Dioxide BUN 27 H 28 H Creatinine 5.6 H 5.5 H Glucose 117 H 103 H POC Glucose Calcium Phosphorus Magnesium AST ALT Alkaline Phosphatase 137 H Troponin T C-Reactive Protein Total Protein 5.4 L Albumin 1.5 L Triglycerides HDL Cholesterol Miscellaneous Test Crossmatch 08/16/17 08/17/17 08/17/17 09:50 05:00 06:26 WBC RBC Hgb Hct MCV MCH RDW Plt Count Lymph % (Auto) Brule % (Auto) Brule # Seg Neutrophils % Seg Neuts % (Manual) Lymphocytes % (Manual) Monocytes % (Manual) Nucleated RBC % Seg Neutrophils # Seg Neutrophils # Man Lymphocytes # (Manual) Monocytes # (Manual) Eosinophils # (Manual) Basophils # (Manual) PT INR POC ABG pH ABG pH POC ABG pCO2 POC ABG pO2 ABG pO2 ABG O2 Saturation ABG Base Excess ABG Hemoglobin Oxyhemoglobin Sodium 134 L Potassium 3.0 L Chloride 97.8 L Carbon Dioxide BUN 30 H Creatinine 5.3 H Glucose 147 H POC Glucose 165 H Calcium 7.5 L Phosphorus Magnesium AST ALT Alkaline Phosphatase Troponin T C-Reactive Protein 32.30 H Total Protein Albumin Triglycerides HDL Cholesterol Miscellaneous Test Crossmatch 08/17/17 08/17/17 08/17/17 10:56 11:20 11:20 WBC 39.1 H RBC 3.10 L Hgb 9.2 L Hct 28.6 L MCV MCH RDW 18.3 H Plt Count 580 H Lymph % (Auto) Brule % (Auto) Brule # Seg Neutrophils % Seg Neuts % (Manual) 89.5 H Lymphocytes % (Manual) 3.5 L Monocytes % (Manual) Nucleated RBC % Seg Neutrophils # Seg Neutrophils # Man 35.0 H Lymphocytes # (Manual) Monocytes # (Manual) 2.5 H Eosinophils # (Manual) Basophils # (Manual) 0.2 H PT INR POC ABG pH 7.464 H ABG pH POC ABG pCO2 34.1 L POC ABG pO2 75 L ABG pO2 ABG O2 Saturation ABG Base Excess ABG Hemoglobin Oxyhemoglobin Sodium Potassium Chloride Carbon Dioxide BUN Creatinine Glucose POC Glucose Calcium Phosphorus Magnesium AST ALT Alkaline Phosphatase Troponin T C-Reactive Protein Total Protein Albumin Triglycerides HDL Cholesterol Miscellaneous Test Flexitest 1 H Crossmatch 08/17/17 08/17/17 08/17/17 11:20 16:57 20:20 WBC 34.4 H RBC 2.81 L Hgb 8.4 L Hct 26.0 L MCV MCH RDW 17.8 H Plt Count 455 H Lymph % (Auto) Brule % (Auto) Brule # Seg Neutrophils % Seg Neuts % (Manual) Lymphocytes % (Manual) 3.5 L Monocytes % (Manual) Nucleated RBC % 5.0 H Seg Neutrophils # Seg Neutrophils # Man 16.5 H Lymphocytes # (Manual) Monocytes # (Manual) 1.0 H Eosinophils # (Manual) Basophils # (Manual) PT 16.0 H INR 1.29 H POC ABG pH ABG pH POC ABG pCO2 POC ABG pO2 ABG pO2 ABG O2 Saturation ABG Base Excess ABG Hemoglobin Oxyhemoglobin Sodium 135 L Potassium 2.9 L* Chloride Carbon Dioxide 20 L BUN 32 H Creatinine 5.4 H Glucose 129 H POC Glucose Calcium 7.5 L Phosphorus Magnesium 1.50 L AST 85 H ALT Alkaline Phosphatase Troponin T C-Reactive Protein Total Protein 4.0 L D Albumin 1.6 L Triglycerides HDL Cholesterol Miscellaneous Test Crossmatch 08/17/17 08/17/17 08/18/17 20:54 23:47 04:26 WBC RBC Hgb Hct MCV MCH RDW Plt Count Lymph % (Auto) Brule % (Auto) Brule # Seg Neutrophils % Seg Neuts % (Manual) Lymphocytes % (Manual) Monocytes % (Manual) Nucleated RBC % Seg Neutrophils # Seg Neutrophils # Man Lymphocytes # (Manual) Monocytes # (Manual) Eosinophils # (Manual) Basophils # (Manual) PT INR POC ABG pH 7.557 H ABG pH POC ABG pCO2 23.1 L 29.0 L POC ABG pO2 187 H 148 H ABG pO2 ABG O2 Saturation ABG Base Excess ABG Hemoglobin Oxyhemoglobin Sodium Potassium Chloride Carbon Dioxide BUN Creatinine Glucose POC Glucose 188 H Calcium Phosphorus Magnesium AST ALT Alkaline Phosphatase Troponin T C-Reactive Protein Total Protein Albumin Triglycerides HDL Cholesterol Miscellaneous Test Crossmatch 08/18/17 08/18/17 08/18/17 05:51 11:44 17:07 WBC RBC Hgb Hct MCV MCH RDW Plt Count Lymph % (Auto) Brule % (Auto) Brule # Seg Neutrophils % Seg Neuts % (Manual) Lymphocytes % (Manual) Monocytes % (Manual) Nucleated RBC % Seg Neutrophils # Seg Neutrophils # Man Lymphocytes # (Manual) Monocytes # (Manual) Eosinophils # (Manual) Basophils # (Manual) PT INR POC ABG pH ABG pH POC ABG pCO2 POC ABG pO2 ABG pO2 ABG O2 Saturation ABG Base Excess ABG Hemoglobin Oxyhemoglobin Sodium Potassium Chloride Carbon Dioxide BUN Creatinine Glucose POC Glucose 202 H 195 H 182 H Calcium Phosphorus Magnesium AST ALT Alkaline Phosphatase Troponin T C-Reactive Protein Total Protein Albumin Triglycerides HDL Cholesterol Miscellaneous Test Crossmatch 08/18/17 08/18/17 08/18/17 23:45 Unknown Unknown WBC 39.0 H RBC 2.84 L Hgb 8.4 L Hct 26.5 L MCV MCH RDW 18.0 H Plt Count 476 H Lymph % (Auto) Brule % (Auto) Brule # Seg Neutrophils % Seg Neuts % (Manual) Lymphocytes % (Manual) 7.0 L Monocytes % (Manual) 10.0 H Nucleated RBC % 3.0 H Seg Neutrophils # Seg Neutrophils # Man 15.6 H Lymphocytes # (Manual) Monocytes # (Manual) 3.9 H Eosinophils # (Manual) Basophils # (Manual) PT INR POC ABG pH ABG pH POC ABG pCO2 POC ABG pO2 ABG pO2 ABG O2 Saturation ABG Base Excess ABG Hemoglobin Oxyhemoglobin Sodium Potassium Chloride Carbon Dioxide 19 L BUN 34 H Creatinine 5.6 H Glucose 201 H POC Glucose 163 H Calcium 7.8 L Phosphorus 1.90 L D Magnesium 1.60 L AST ALT Alkaline Phosphatase Troponin T C-Reactive Protein Total Protein Albumin Triglycerides HDL Cholesterol Miscellaneous Test Crossmatch 08/19/17 08/19/17 08/19/17 04:18 05:00 05:00 WBC 40.0 H RBC 2.46 L Hgb 7.3 L Hct 22.6 L MCV MCH RDW 18.1 H Plt Count Lymph % (Auto) Brule % (Auto) Brule # Seg Neutrophils % Seg Neuts % (Manual) Lymphocytes % (Manual) 8.0 L Monocytes % (Manual) Nucleated RBC % 2.0 H Seg Neutrophils # Seg Neutrophils # Man 16.4 H Lymphocytes # (Manual) Monocytes # (Manual) 1.2 H Eosinophils # (Manual) 1.2 H Basophils # (Manual) PT INR POC ABG pH 7.463 H ABG pH POC ABG pCO2 29.7 L POC ABG pO2 134 H ABG pO2 ABG O2 Saturation ABG Base Excess ABG Hemoglobin Oxyhemoglobin Sodium Potassium 5.1 H D Chloride Carbon Dioxide 20 L BUN 40 H Creatinine 5.3 H Glucose 128 H POC Glucose Calcium 7.8 L Phosphorus 1.90 L Magnesium AST ALT Alkaline Phosphatase Troponin T C-Reactive Protein Total Protein Albumin Triglycerides HDL Cholesterol Miscellaneous Test Crossmatch 08/19/17 08/19/17 08/19/17 05:19 07:37 09:52 WBC 45.0 H* RBC 2.50 L Hgb 7.5 L Hct 24.5 L MCV 98 H MCH RDW 18.4 H Plt Count Lymph % (Auto) Brule % (Auto) Brule # Seg Neutrophils % Seg Neuts % (Manual) 81.5 H Lymphocytes % (Manual) 4.0 L Monocytes % (Manual) Nucleated RBC % 1.0 H Seg Neutrophils # Seg Neutrophils # Man 36.7 H Lymphocytes # (Manual) Monocytes # (Manual) Eosinophils # (Manual) Basophils # (Manual) PT INR POC ABG pH ABG pH POC ABG pCO2 POC ABG pO2 ABG pO2 ABG O2 Saturation ABG Base Excess ABG Hemoglobin Oxyhemoglobin Sodium Potassium Chloride Carbon Dioxide BUN Creatinine Glucose POC Glucose 142 H Calcium Phosphorus Magnesium AST ALT Alkaline Phosphatase Troponin T C-Reactive Protein 34.20 H Total Protein Albumin Triglycerides HDL Cholesterol Miscellaneous Test Crossmatch 08/19/17 08/19/17 08/20/17 11:16 18:12 00:35 WBC RBC Hgb Hct MCV MCH RDW Plt Count Lymph % (Auto) Brule % (Auto) Brule # Seg Neutrophils % Seg Neuts % (Manual) Lymphocytes % (Manual) Monocytes % (Manual) Nucleated RBC % Seg Neutrophils # Seg Neutrophils # Man Lymphocytes # (Manual) Monocytes # (Manual) Eosinophils # (Manual) Basophils # (Manual) PT INR POC ABG pH ABG pH POC ABG pCO2 POC ABG pO2 ABG pO2 ABG O2 Saturation ABG Base Excess ABG Hemoglobin Oxyhemoglobin Sodium Potassium Chloride Carbon Dioxide BUN Creatinine Glucose POC Glucose 143 H 137 H 164 H Calcium Phosphorus Magnesium AST ALT Alkaline Phosphatase Troponin T C-Reactive Protein Total Protein Albumin Triglycerides HDL Cholesterol Miscellaneous Test Crossmatch 08/20/17 08/20/17 08/20/17 03:20 03:20 04:00 WBC 48.0 H* RBC 2.55 L Hgb 7.6 L Hct 23.4 L MCV MCH RDW 18.4 H Plt Count Lymph % (Auto) Brule % (Auto) Brule # Seg Neutrophils % Seg Neuts % (Manual) 90.0 H Lymphocytes % (Manual) 3.0 L Monocytes % (Manual) Nucleated RBC % Seg Neutrophils # Seg Neutrophils # Man 43.2 H Lymphocytes # (Manual) Monocytes # (Manual) 1.4 H Eosinophils # (Manual) 0.5 H Basophils # (Manual) PT INR POC ABG pH 7.499 H ABG pH POC ABG pCO2 29.1 L POC ABG pO2 ABG pO2 ABG O2 Saturation ABG Base Excess ABG Hemoglobin Oxyhemoglobin Sodium 135 L Potassium Chloride Carbon Dioxide BUN 28 H Creatinine 4.0 H Glucose 140 H POC Glucose Calcium 8.0 L Phosphorus 1.70 L Magnesium 1.60 L AST ALT Alkaline Phosphatase Troponin T C-Reactive Protein Total Protein Albumin Triglycerides HDL Cholesterol Miscellaneous Test Crossmatch 08/20/17 08/20/17 08/20/17 05:02 12:05 13:12 WBC RBC Hgb Hct MCV MCH RDW Plt Count Lymph % (Auto) Brule % (Auto) Brule # Seg Neutrophils % Seg Neuts % (Manual) Lymphocytes % (Manual) Monocytes % (Manual) Nucleated RBC % Seg Neutrophils # Seg Neutrophils # Man Lymphocytes # (Manual) Monocytes # (Manual) Eosinophils # (Manual) Basophils # (Manual) PT INR POC ABG pH 7.537 H ABG pH POC ABG pCO2 27.9 L POC ABG pO2 79 L ABG pO2 ABG O2 Saturation ABG Base Excess ABG Hemoglobin Oxyhemoglobin Sodium Potassium Chloride Carbon Dioxide BUN Creatinine Glucose POC Glucose 158 H 203 H Calcium Phosphorus Magnesium AST ALT Alkaline Phosphatase Troponin T C-Reactive Protein Total Protein Albumin Triglycerides HDL Cholesterol Miscellaneous Test Crossmatch 08/20/17 08/21/17 08/21/17 17:13 00:47 03:14 WBC RBC Hgb Hct MCV MCH RDW Plt Count Lymph % (Auto) Brule % (Auto) Brule # Seg Neutrophils % Seg Neuts % (Manual) Lymphocytes % (Manual) Monocytes % (Manual) Nucleated RBC % Seg Neutrophils # Seg Neutrophils # Man Lymphocytes # (Manual) Monocytes # (Manual) Eosinophils # (Manual) Basophils # (Manual) PT INR POC ABG pH 7.481 H ABG pH POC ABG pCO2 29.6 L POC ABG pO2 ABG pO2 ABG O2 Saturation ABG Base Excess ABG Hemoglobin Oxyhemoglobin Sodium Potassium Chloride Carbon Dioxide BUN Creatinine Glucose POC Glucose 188 H 109 H Calcium Phosphorus Magnesium AST ALT Alkaline Phosphatase Troponin T C-Reactive Protein Total Protein Albumin Triglycerides HDL Cholesterol Miscellaneous Test Crossmatch 08/21/17 08/21/17 08/21/17 05:05 06:50 06:50 WBC 44.7 H* RBC 2.41 L Hgb 7.1 L Hct 22.1 L MCV MCH RDW 18.3 H Plt Count Lymph % (Auto) Brule % (Auto) Brule # Seg Neutrophils % Seg Neuts % (Manual) 89.0 H Lymphocytes % (Manual) 0 L Monocytes % (Manual) Nucleated RBC % 1.0 H Seg Neutrophils # Seg Neutrophils # Man 39.8 H Lymphocytes # (Manual) 0.0 L Monocytes # (Manual) 1.3 H Eosinophils # (Manual) Basophils # (Manual) PT INR POC ABG pH ABG pH POC ABG pCO2 POC ABG pO2 ABG pO2 ABG O2 Saturation ABG Base Excess ABG Hemoglobin Oxyhemoglobin Sodium 135 L Potassium Chloride Carbon Dioxide BUN 39 H Creatinine 4.4 H Glucose 147 H POC Glucose 166 H Calcium 8.1 L Phosphorus Magnesium AST ALT < 5 L Alkaline Phosphatase 164 H Troponin T C-Reactive Protein Total Protein 4.7 L Albumin 1.4 L Triglycerides HDL Cholesterol Miscellaneous Test Crossmatch 08/21/17 08/21/17 08/21/17 08:00 12:21 17:02 WBC RBC Hgb Hct MCV MCH RDW Plt Count Lymph % (Auto) Brule % (Auto) Brule # Seg Neutrophils % Seg Neuts % (Manual) Lymphocytes % (Manual) Monocytes % (Manual) Nucleated RBC % Seg Neutrophils # Seg Neutrophils # Man Lymphocytes # (Manual) Monocytes # (Manual) Eosinophils # (Manual) Basophils # (Manual) PT INR POC ABG pH ABG pH POC ABG pCO2 POC ABG pO2 ABG pO2 ABG O2 Saturation ABG Base Excess ABG Hemoglobin Oxyhemoglobin Sodium Potassium Chloride Carbon Dioxide BUN Creatinine Glucose POC Glucose 147 H 135 H Calcium Phosphorus Magnesium AST ALT Alkaline Phosphatase Troponin T C-Reactive Protein Total Protein Albumin Triglycerides HDL Cholesterol Miscellaneous Test Crossmatch See Detail 08/21/17 08/22/17 08/22/17 23:38 03:40 03:40 WBC 42.5 H* RBC 2.88 L Hgb 8.5 L Hct 26.3 L MCV MCH RDW 17.9 H Plt Count Lymph % (Auto) Brule % (Auto) Brule # Seg Neutrophils % Seg Neuts % (Manual) Lymphocytes % (Manual) 5.0 L Monocytes % (Manual) Nucleated RBC % Seg Neutrophils # Seg Neutrophils # Man 19.6 H Lymphocytes # (Manual) Monocytes # (Manual) 2.6 H Eosinophils # (Manual) Basophils # (Manual) PT INR POC ABG pH ABG pH POC ABG pCO2 POC ABG pO2 ABG pO2 ABG O2 Saturation ABG Base Excess ABG Hemoglobin Oxyhemoglobin Sodium Potassium 3.3 L D Chloride Carbon Dioxide BUN 27 H Creatinine 2.9 H Glucose 144 H POC Glucose 251 H Calcium 8.0 L Phosphorus 2.40 L Magnesium AST ALT Alkaline Phosphatase Troponin T C-Reactive Protein Total Protein Albumin Triglycerides HDL Cholesterol Miscellaneous Test Crossmatch 08/22/17 08/22/17 08/22/17 06:37 08:50 11:25 WBC RBC Hgb Hct MCV MCH RDW Plt Count Lymph % (Auto) [place] % (Auto) [place] # Seg Neutrophils % Seg Neuts % (Manual) Lymphocytes % (Manual) Monocytes % (Manual) Nucleated RBC % Seg Neutrophils # Seg Neutrophils # Man Lymphocytes # (Manual) Monocytes # (Manual) Eosinophils # (Manual) Basophils # (Manual) PT INR POC ABG pH ABG pH POC ABG pCO2 POC ABG pO2 ABG pO2 ABG O2 Saturation ABG Base Excess ABG Hemoglobin Oxyhemoglobin Sodium Potassium Chloride Carbon Dioxide BUN Creatinine Glucose POC Glucose 152 H 175 H Calcium Phosphorus Magnesium AST ALT Alkaline Phosphatase Troponin T C-Reactive Protein Total Protein Albumin Triglycerides HDL Cholesterol Miscellaneous Test Flexitest 1 H Crossmatch 08/22/17 08/22/17 08/22/17 16:25 17:56 23:03 WBC RBC Hgb Hct MCV MCH RDW Plt Count Lymph % (Auto) [place] % (Auto) [place] # Seg Neutrophils % Seg Neuts % (Manual) Lymphocytes % (Manual) Monocytes % (Manual) Nucleated RBC % Seg Neutrophils # Seg Neutrophils # Man Lymphocytes # (Manual) Monocytes # (Manual) Eosinophils # (Manual) Basophils # (Manual) PT INR POC ABG pH ABG pH POC ABG pCO2 POC ABG pO2 ABG pO2 ABG O2 Saturation ABG Base Excess ABG Hemoglobin Oxyhemoglobin Sodium Potassium Chloride Carbon Dioxide BUN Creatinine Glucose POC Glucose 232 H 192 H Calcium Phosphorus Magnesium AST ALT Alkaline Phosphatase Troponin T C-Reactive Protein 30.70 H Total Protein Albumin Triglycerides HDL Cholesterol Miscellaneous Test Crossmatch 08/23/17 08/23/1717 05:36 08:50 12:14 WBC RBC Hgb Hct MCV MCH RDW Plt Count Lymph % (Auto) [place] % (Auto) [place] # Seg Neutrophils % Seg Neuts % (Manual) Lymphocytes % (Manual) Monocytes % (Manual) Nucleated RBC % Seg Neutrophils # Seg Neutrophils # Man Lymphocytes # (Manual) Monocytes # (Manual) Eosinophils # (Manual) Basophils # (Manual) PT INR POC ABG pH ABG pH POC ABG pCO2 POC ABG pO2 ABG pO2 ABG O2 Saturation ABG Base Excess ABG Hemoglobin Oxyhemoglobin Sodium Potassium Chloride 107.1 H Carbon Dioxide BUN 49 H Creatinine 3.3 H Glucose 172 H POC Glucose 206 H 238 H Calcium Phosphorus Magnesium 2.40 H AST ALT Alkaline Phosphatase Troponin T C-Reactive Protein Total Protein Albumin Triglycerides HDL Cholesterol Miscellaneous Test Crossmatch 08/23/17 08/23/17 08/24/17 17:21 23:13 04:00 WBC 34.2 H RBC 2.86 L Hgb 8.4 L Hct 25.9 L MCV MCH RDW 17.9 H Plt Count Lymph % (Auto) [place] % (Auto) [place] # Seg Neutrophils % Seg Neuts % (Manual) 85.0 H Lymphocytes % (Manual) 0.5 L Monocytes % (Manual) Nucleated RBC % 1.0 H Seg Neutrophils # Seg Neutrophils # Man 29.1 H Lymphocytes # (Manual) 0.2 L Monocytes # (Manual) 2.4 H Eosinophils # (Manual) Basophils # (Manual) PT INR POC ABG pH ABG pH POC ABG pCO2 POC ABG pO2 ABG pO2 ABG O2 Saturation ABG Base Excess ABG Hemoglobin Oxyhemoglobin Sodium Potassium Chloride Carbon Dioxide BUN Creatinine Glucose POC Glucose 226 H 183 H Calcium Phosphorus Magnesium AST ALT Alkaline Phosphatase Troponin T C-Reactive Protein Total Protein Albumin Triglycerides HDL Cholesterol Miscellaneous Test Crossmatch 08/24/17 08/24/17 08/24/17 05:06 09:30 12:04 WBC RBC Hgb Hct MCV MCH RDW Plt Count Lymph % (Auto) [place] % (Auto) [place] # Seg Neutrophils % Seg Neuts % (Manual) Lymphocytes % (Manual) Monocytes % (Manual) Nucleated RBC % Seg Neutrophils # Seg Neutrophils # Man Lymphocytes # (Manual) Monocytes # (Manual) Eosinophils # (Manual) Basophils # (Manual) PT INR POC ABG pH ABG pH POC ABG pCO2 POC ABG pO2 ABG pO2 ABG O2 Saturation ABG Base Excess ABG Hemoglobin Oxyhemoglobin Sodium Potassium Chloride Carbon Dioxide BUN 46 H Creatinine 2.5 H Glucose 176 H POC Glucose 201 H 181 H Calcium Phosphorus Magnesium AST ALT Alkaline Phosphatase Troponin T C-Reactive Protein Total Protein Albumin Triglycerides HDL Cholesterol Miscellaneous Test Crossmatch 08/24/17 08/24/17 08/25/17 18:04 23:05 05:05 WBC RBC Hgb Hct MCV MCH RDW Plt Count Lymph % (Auto) [place] % (Auto) [place] # Seg Neutrophils % Seg Neuts % (Manual) Lymphocytes % (Manual) Monocytes % (Manual) Nucleated RBC % Seg Neutrophils # Seg Neutrophils # Man Lymphocytes # (Manual) Monocytes # (Manual) Eosinophils # (Manual) Basophils # (Manual) PT INR POC ABG pH ABG pH POC ABG pCO2 POC ABG pO2 ABG pO2 ABG O2 Saturation ABG Base Excess ABG Hemoglobin Oxyhemoglobin Sodium Potassium Chloride Carbon Dioxide BUN Creatinine Glucose POC Glucose 189 H 175 H 190 H Calcium Phosphorus Magnesium AST ALT Alkaline Phosphatase Troponin T C-Reactive Protein Total Protein Albumin Triglycerides HDL Cholesterol Miscellaneous Test Crossmatch 08/25/17 08/25/17 08/26/17 07:02 11:53 05:30 WBC 33.5 H RBC 2.47 L Hgb 7.3 L Hct 23.0 L MCV MCH RDW 21.3 H Plt Count Lymph % (Auto) [place] % (Auto) [place] # Seg Neutrophils % Seg Neuts % (Manual) 92.0 H Lymphocytes % (Manual) 1.0 L Monocytes % (Manual) Nucleated RBC % Seg Neutrophils # Seg Neutrophils # Man 30.8 H Lymphocytes # (Manual) 0.3 L Monocytes # (Manual) Eosinophils # (Manual) Basophils # (Manual) PT INR POC ABG pH ABG pH POC ABG pCO2 POC ABG pO2 ABG pO2 ABG O2 Saturation ABG Base Excess ABG Hemoglobin Oxyhemoglobin Sodium Potassium Chloride Carbon Dioxide BUN 32 H Creatinine 5.0 H D Glucose 117 H POC Glucose 191 H Calcium 8.0 L Phosphorus Magnesium AST ALT Alkaline Phosphatase Troponin T C-Reactive Protein Total Protein Albumin Triglycerides HDL Cholesterol Miscellaneous Test Crossmatch 08/26/17 08/26/17 08/26/17 05:30 06:44 13:26 WBC RBC Hgb Hct MCV MCH RDW Plt Count Lymph % (Auto) [place] % (Auto) [place] # Seg Neutrophils % Seg Neuts % (Manual) Lymphocytes % (Manual) Monocytes % (Manual) Nucleated RBC % Seg Neutrophils # Seg Neutrophils # Man Lymphocytes # (Manual) Monocytes # (Manual) Eosinophils # (Manual) Basophils # (Manual) PT INR POC ABG pH ABG pH POC ABG pCO2 POC ABG pO2 ABG pO2 ABG O2 Saturation ABG Base Excess ABG Hemoglobin Oxyhemoglobin Sodium Potassium 5.2 H Chloride Carbon Dioxide BUN 80 H Creatinine 3.4 H Glucose 193 H POC Glucose 232 H 207 H Calcium 8.3 L Phosphorus 6.80 H D Magnesium 2.60 H AST 135 H ALT Alkaline Phosphatase 211 H Troponin T C-Reactive Protein Total Protein 4.8 L Albumin 2.0 L Triglycerides HDL Cholesterol Miscellaneous Test Crossmatch 08/27/17 08/27/17 08/27/17 01:08 06:20 06:20 WBC 35.0 H RBC 2.75 L Hgb 8.4 L Hct 25.1 L MCV MCH RDW 21.8 H Plt Count Lymph % (Auto) [place] % (Auto) [place] # Seg Neutrophils % Seg Neuts % (Manual) Lymphocytes % (Manual) 4.5 L Monocytes % (Manual) Nucleated RBC % Seg Neutrophils # Seg Neutrophils # Man 31.9 H Lymphocytes # (Manual) Monocytes # (Manual) 1.2 H Eosinophils # (Manual) Basophils # (Manual) PT INR POC ABG pH ABG pH POC ABG pCO2 POC ABG pO2 ABG pO2 ABG O2 Saturation ABG Base Excess ABG Hemoglobin Oxyhemoglobin Sodium Potassium Chloride Carbon Dioxide BUN 61 H Creatinine 2.6 H Glucose 184 H POC Glucose 146 H Calcium Phosphorus 4.90 H D Magnesium AST ALT Alkaline Phosphatase Troponin T C-Reactive Protein Total Protein Albumin Triglycerides HDL Cholesterol Miscellaneous Test Crossmatch 08/27/17 08/27/17 08/27/17 07:01 09:17 12:52 WBC RBC Hgb Hct MCV MCH RDW Plt Count Lymph % (Auto) [place] % (Auto) [place] # Seg Neutrophils % Seg Neuts % (Manual) Lymphocytes % (Manual) Monocytes % (Manual) Nucleated RBC % Seg Neutrophils # Seg Neutrophils # Man Lymphocytes # (Manual) Monocytes # (Manual) Eosinophils # (Manual) Basophils # (Manual) PT INR POC ABG pH ABG pH POC ABG pCO2 POC ABG pO2 ABG pO2 ABG O2 Saturation ABG Base Excess ABG Hemoglobin Oxyhemoglobin Sodium Potassium Chloride Carbon Dioxide BUN Creatinine Glucose POC Glucose 165 H 198 H 218 H Calcium Phosphorus Magnesium AST ALT Alkaline Phosphatase Troponin T C-Reactive Protein Total Protein Albumin Triglycerides HDL Cholesterol Miscellaneous Test Crossmatch 08/27/17 08/28/17 08/28/17 17:27 02:13 06:46 WBC RBC Hgb Hct MCV MCH RDW Plt Count Lymph % (Auto) [place] % (Auto) [place] # Seg Neutrophils % Seg Neuts % (Manual) Lymphocytes % (Manual) Monocytes % (Manual) Nucleated RBC % Seg Neutrophils # Seg Neutrophils # Man Lymphocytes # (Manual) Monocytes # (Manual) Eosinophils # (Manual) Basophils # (Manual) PT INR POC ABG pH ABG pH POC ABG pCO2 POC ABG pO2 ABG pO2 ABG O2 Saturation ABG Base Excess ABG Hemoglobin Oxyhemoglobin Sodium Potassium Chloride Carbon Dioxide BUN Creatinine Glucose POC Glucose 151 H 155 H 230 H Calcium Phosphorus Magnesium AST ALT Alkaline Phosphatase Troponin T C-Reactive Protein Total Protein Albumin Triglycerides HDL Cholesterol Miscellaneous Test Crossmatch 08/28/17 08/28/17 08/28/17 06:53 06:53 08:19 WBC 31.1 H RBC 2.26 L Hgb 6.8 L Hct 20.9 L MCV MCH RDW 21.7 H Plt Count Lymph % (Auto) [place] % (Auto) [place] # Seg Neutrophils % Seg Neuts % (Manual) 83.0 H Lymphocytes % (Manual) 4.0 L Monocytes % (Manual) Nucleated RBC % Seg Neutrophils # Seg Neutrophils # Man 25.8 H Lymphocytes # (Manual) Monocytes # (Manual) Eosinophils # (Manual) Basophils # (Manual) PT INR POC ABG pH ABG pH POC ABG pCO2 POC ABG pO2 ABG pO2 ABG O2 Saturation ABG Base Excess ABG Hemoglobin Oxyhemoglobin Sodium Potassium Chloride Carbon Dioxide BUN 81 H Creatinine 3.4 H Glucose 218 H POC Glucose 239 H Calcium Phosphorus 4.90 H Magnesium AST ALT Alkaline Phosphatase Troponin T C-Reactive Protein Total Protein Albumin Triglycerides HDL Cholesterol Miscellaneous Test Crossmatch 08/28/17 08/28/17 08/28/17 11:56 13:05 13:29 WBC RBC Hgb Hct MCV MCH RDW Plt Count Lymph % (Auto) [place] % (Auto) [place] # Seg Neutrophils % Seg Neuts % (Manual) Lymphocytes % (Manual) Monocytes % (Manual) Nucleated RBC % Seg Neutrophils # Seg Neutrophils # Man Lymphocytes # (Manual) Monocytes # (Manual) Eosinophils # (Manual) Basophils # (Manual) PT 16.7 H INR 1.29 H POC ABG pH ABG pH POC ABG pCO2 POC ABG pO2 338 H ABG pO2 ABG O2 Saturation ABG Base Excess ABG Hemoglobin Oxyhemoglobin Sodium Potassium Chloride Carbon Dioxide BUN Creatinine Glucose POC Glucose Calcium Phosphorus Magnesium AST ALT Alkaline Phosphatase Troponin T C-Reactive Protein Total Protein Albumin Triglycerides HDL Cholesterol Miscellaneous Test Crossmatch See Detail 08/28/17 08/28/17 08/29/17 16:22 19:20 04:24 WBC RBC Hgb Hct MCV MCH RDW Plt Count Lymph % (Auto) [place] % (Auto) [place] # Seg Neutrophils % Seg Neuts % (Manual) Lymphocytes % (Manual) Monocytes % (Manual) Nucleated RBC % Seg Neutrophils # Seg Neutrophils # Man Lymphocytes # (Manual) Monocytes # (Manual) Eosinophils # (Manual) Basophils # (Manual) PT INR POC ABG pH 7.469 H ABG pH POC ABG pCO2 POC ABG pO2 240 H ABG pO2 ABG O2 Saturation ABG Base Excess ABG Hemoglobin Oxyhemoglobin Sodium Potassium Chloride Carbon Dioxide BUN Creatinine Glucose POC Glucose 209 H 195 H Calcium Phosphorus Magnesium AST ALT Alkaline Phosphatase Troponin T C-Reactive Protein Total Protein Albumin Triglycerides HDL Cholesterol Miscellaneous Test Crossmatch 08/29/17 08/29/17 08/29/17 04:30 04:30 12:07 WBC 44.9 H* RBC Hgb Hct MCV MCH RDW 23.1 H Plt Count Lymph % (Auto) [place] % (Auto) [place] # Seg Neutrophils % Seg Neuts % (Manual) 38.0 L Lymphocytes % (Manual) 10.0 L Monocytes % (Manual) 10.0 H Nucleated RBC % 6.0 H Seg Neutrophils # Seg Neutrophils # Man 17.1 H Lymphocytes # (Manual) Monocytes # (Manual) 4.5 H Eosinophils # (Manual) Basophils # (Manual) PT INR POC ABG pH ABG pH POC ABG pCO2 POC ABG pO2 ABG pO2 ABG O2 Saturation ABG Base Excess ABG Hemoglobin Oxyhemoglobin Sodium Potassium Chloride Carbon Dioxide BUN 61 H Creatinine 2.4 H Glucose 226 H POC Glucose 200 H Calcium Phosphorus Magnesium AST ALT Alkaline Phosphatase Troponin T C-Reactive Protein Total Protein Albumin Triglycerides HDL Cholesterol Miscellaneous Test Crossmatch 08/29/17 08/29/17 08/29/17 12:30 12:30 17:23 WBC RBC Hgb Hct MCV MCH RDW Plt Count Lymph % (Auto) [place] % (Auto) [place] # Seg Neutrophils % Seg Neuts % (Manual) Lymphocytes % (Manual) Monocytes % (Manual) Nucleated RBC % Seg Neutrophils # Seg Neutrophils # Man Lymphocytes # (Manual) Monocytes # (Manual) Eosinophils # (Manual) Basophils # (Manual) PT INR POC ABG pH ABG pH POC ABG pCO2 POC ABG pO2 ABG pO2 ABG O2 Saturation ABG Base Excess ABG Hemoglobin Oxyhemoglobin Sodium Potassium Chloride Carbon Dioxide BUN Creatinine Glucose POC Glucose 270 H Calcium Phosphorus Magnesium AST ALT Alkaline Phosphatase Troponin T C-Reactive Protein 19.10 H Total Protein Albumin Triglycerides HDL Cholesterol Miscellaneous Test Flexitest 1 H Crossmatch 08/30/17 08/30/17 08/30/17 00:10 01:30 03:31 WBC RBC Hgb Hct MCV MCH RDW Plt Count Lymph % (Auto) [place] % (Auto) [place] # Seg Neutrophils % Seg Neuts % (Manual) Lymphocytes % (Manual) Monocytes % (Manual) Nucleated RBC % Seg Neutrophils # Seg Neutrophils # Man Lymphocytes # (Manual) Monocytes # (Manual) Eosinophils # (Manual) Basophils # (Manual) PT INR POC ABG pH 7.168 L 7.335 L ABG pH POC ABG pCO2 72.8 H POC ABG pO2 257 H 117 H ABG pO2 ABG O2 Saturation ABG Base Excess ABG Hemoglobin Oxyhemoglobin Sodium Potassium Chloride Carbon Dioxide BUN Creatinine Glucose POC Glucose 245 H Calcium Phosphorus Magnesium AST ALT Alkaline Phosphatase Troponin T C-Reactive Protein Total Protein Albumin Triglycerides HDL Cholesterol Miscellaneous Test Crossmatch 08/30/17 08/30/17 08/30/17 05:20 05:20 05:20 WBC 40.9 H* RBC 3.64 L Hgb Hct MCV MCH RDW 24.3 H Plt Count Lymph % (Auto) [place] % (Auto) [place] # Seg Neutrophils % Seg Neuts % (Manual) 80.0 H Lymphocytes % (Manual) 3.0 L Monocytes % (Manual) Nucleated RBC % 1.0 H Seg Neutrophils # Seg Neutrophils # Man 32.7 H Lymphocytes # (Manual) Monocytes # (Manual) Eosinophils # (Manual) Basophils # (Manual) PT INR POC ABG pH ABG pH POC ABG pCO2 POC ABG pO2 ABG pO2 ABG O2 Saturation ABG Base Excess ABG Hemoglobin Oxyhemoglobin Sodium Potassium Chloride Carbon Dioxide BUN 83 H Creatinine 2.9 H Glucose 334 H POC Glucose 309 H Calcium Phosphorus Magnesium AST ALT Alkaline Phosphatase Troponin T C-Reactive Protein Total Protein Albumin Triglycerides HDL Cholesterol Miscellaneous Test Crossmatch 08/30/17 08/30/17 08/31/17 12:18 17:36 00:17 WBC RBC Hgb Hct MCV MCH RDW Plt Count Lymph % (Auto) [place] % (Auto) [place] # Seg Neutrophils % Seg Neuts % (Manual) Lymphocytes % (Manual) Monocytes % (Manual) Nucleated RBC % Seg Neutrophils # Seg Neutrophils # Man Lymphocytes # (Manual) Monocytes # (Manual) Eosinophils # (Manual) Basophils # (Manual) PT INR POC ABG pH ABG pH POC ABG pCO2 POC ABG pO2 ABG pO2 ABG O2 Saturation ABG Base Excess ABG Hemoglobin Oxyhemoglobin Sodium Potassium Chloride Carbon Dioxide BUN Creatinine Glucose POC Glucose 273 H 293 H 360 H Calcium Phosphorus Magnesium AST ALT Alkaline Phosphatase Troponin T C-Reactive Protein Total Protein Albumin Triglycerides HDL Cholesterol Miscellaneous Test Crossmatch 08/31/17 08/31/17 08/31/17 05:30 05:30 05:32 WBC 29.9 H RBC 2.89 L Hgb 8.2 L Hct 24.7 L D MCV MCH RDW 24.4 H Plt Count Lymph % (Auto) [place] % (Auto) [place] # Seg Neutrophils % Seg Neuts % (Manual) Lymphocytes % (Manual) 2.0 L Monocytes % (Manual) Nucleated RBC % 2.0 H Seg Neutrophils # Seg Neutrophils # Man 18.5 H Lymphocytes # (Manual) 0.6 L Monocytes # (Manual) 0.9 H Eosinophils # (Manual) Basophils # (Manual) PT INR POC ABG pH ABG pH POC ABG pCO2 POC ABG pO2 ABG pO2 ABG O2 Saturation ABG Base Excess ABG Hemoglobin Oxyhemoglobin Sodium Potassium Chloride Carbon Dioxide BUN 62 H Creatinine 2.2 H Glucose 245 H POC Glucose 257 H Calcium Phosphorus 2.10 L D Magnesium 1.60 L AST ALT Alkaline Phosphatase Troponin T C-Reactive Protein Total Protein Albumin Triglycerides HDL Cholesterol Miscellaneous Test Crossmatch 08/31/17 08/31/17 08/31/17 11:56 12:05 18:14 WBC 32.5 H RBC 3.19 L Hgb 8.8 L Hct 27.9 L MCV MCH RDW 24.9 H Plt Count Lymph % (Auto) [place] % (Auto) [place] # Seg Neutrophils % Seg Neuts % (Manual) Lymphocytes % (Manual) 1.0 L Monocytes % (Manual) 12.0 H Nucleated RBC % 1.0 H Seg Neutrophils # Seg Neutrophils # Man 13.3 H Lymphocytes # (Manual) 0.3 L Monocytes # (Manual) 3.9 H Eosinophils # (Manual) Basophils # (Manual) PT INR POC ABG pH ABG pH POC ABG pCO2 POC ABG pO2 ABG pO2 ABG O2 Saturation ABG Base Excess ABG Hemoglobin Oxyhemoglobin Sodium Potassium Chloride Carbon Dioxide BUN Creatinine Glucose POC Glucose 245 H Calcium Phosphorus Magnesium AST ALT Alkaline Phosphatase Troponin T C-Reactive Protein Total Protein Albumin Triglycerides HDL Cholesterol Miscellaneous Test Crossmatch See Detail 08/31/17 08/31/17 08/31/17 18:14 18:15 23:53 WBC RBC Hgb Hct MCV MCH RDW Plt Count Lymph % (Auto) [place] % (Auto) [place] # Seg Neutrophils % Seg Neuts % (Manual) Lymphocytes % (Manual) Monocytes % (Manual) Nucleated RBC % Seg Neutrophils # Seg Neutrophils # Man Lymphocytes # (Manual) Monocytes # (Manual) Eosinophils # (Manual) Basophils # (Manual) PT 15.1 H INR POC ABG pH ABG pH POC ABG pCO2 POC ABG pO2 ABG pO2 ABG O2 Saturation ABG Base Excess ABG Hemoglobin Oxyhemoglobin Sodium 136 L Potassium Chloride Carbon Dioxide 21 L BUN 69 H Creatinine 2.3 H Glucose 227 H POC Glucose 301 H Calcium Phosphorus 2.40 L Magnesium 1.50 L AST 143 H ALT 114 H Alkaline Phosphatase 267 H Troponin T C-Reactive Protein Total Protein 4.1 L Albumin 1.8 L Triglycerides HDL Cholesterol Miscellaneous Test Crossmatch 09/01/17 09/01/17 09/01/17 05:00 05:00 05:20 WBC 33.9 H RBC 2.85 L Hgb 7.8 L Hct 24.8 L MCV MCH 27 L RDW 23.9 H Plt Count Lymph % (Auto) [place] % (Auto) [place] # Seg Neutrophils % Seg Neuts % (Manual) Lymphocytes % (Manual) 5.0 L Monocytes % (Manual) Nucleated RBC % Seg Neutrophils # Seg Neutrophils # Man 23.1 H Lymphocytes # (Manual) Monocytes # (Manual) Eosinophils # (Manual) Basophils # (Manual) PT INR POC ABG pH ABG pH 7.348 L POC ABG pCO2 POC ABG pO2 ABG pO2 70.2 L ABG O2 Saturation ABG Base Excess ABG Hemoglobin 7.5 L Oxyhemoglobin Sodium Potassium Chloride Carbon Dioxide BUN 51 H Creatinine 1.8 H Glucose 195 H POC Glucose Calcium Phosphorus 1.70 L D Magnesium 1.60 L AST 80 H ALT 82 H Alkaline Phosphatase 243 H Troponin T C-Reactive Protein Total Protein 4.2 L Albumin 1.7 L Triglycerides HDL Cholesterol Miscellaneous Test Crossmatch 09/01/17 09/01/17 09/01/17 05:47 11:37 17:39 WBC RBC Hgb Hct MCV MCH RDW Plt Count Lymph % (Auto) [place] % (Auto) [place] # Seg Neutrophils % Seg Neuts % (Manual) Lymphocytes % (Manual) Monocytes % (Manual) Nucleated RBC % Seg Neutrophils # Seg Neutrophils # Man Lymphocytes # (Manual) Monocytes # (Manual) Eosinophils # (Manual) Basophils # (Manual) PT INR POC ABG pH ABG pH POC ABG pCO2 POC ABG pO2 ABG pO2 ABG O2 Saturation ABG Base Excess ABG Hemoglobin Oxyhemoglobin Sodium Potassium Chloride Carbon Dioxide BUN Creatinine Glucose POC Glucose 230 H 254 H 297 H Calcium Phosphorus Magnesium AST ALT Alkaline Phosphatase Troponin T C-Reactive Protein Total Protein Albumin Triglycerides HDL Cholesterol Miscellaneous Test Crossmatch 09/01/17 09/02/17 09/02/17 23:14 04:55 05:31 WBC RBC Hgb Hct MCV MCH RDW Plt Count Lymph % (Auto) [place] % (Auto) [place] # Seg Neutrophils % Seg Neuts % (Manual) Lymphocytes % (Manual) Monocytes % (Manual) Nucleated RBC % Seg Neutrophils # Seg Neutrophils # Man Lymphocytes # (Manual) Monocytes # (Manual) Eosinophils # (Manual) Basophils # (Manual) PT INR POC ABG pH ABG pH POC ABG pCO2 POC ABG pO2 ABG pO2 124.8 H ABG O2 Saturation ABG Base Excess -2.9 L ABG Hemoglobin 5.8 L Oxyhemoglobin Sodium Potassium Chloride Carbon Dioxide BUN Creatinine Glucose POC Glucose 291 H 245 H Calcium Phosphorus Magnesium AST ALT Alkaline Phosphatase Troponin T C-Reactive Protein Total Protein Albumin Triglycerides HDL Cholesterol Miscellaneous Test Crossmatch 09/02/17 09/02/17 09/02/17 06:10 11:58 15:37 WBC RBC Hgb Hct MCV MCH RDW Plt Count Lymph % (Auto) [place] % (Auto) [place] # Seg Neutrophils % Seg Neuts % (Manual) Lymphocytes % (Manual) Monocytes % (Manual) Nucleated RBC % Seg Neutrophils # Seg Neutrophils # Man Lymphocytes # (Manual) Monocytes # (Manual) Eosinophils # (Manual) Basophils # (Manual) PT INR POC ABG pH ABG pH POC ABG pCO2 POC ABG pO2 ABG pO2 ABG O2 Saturation ABG Base Excess ABG Hemoglobin Oxyhemoglobin Sodium Potassium Chloride Carbon Dioxide BUN 68 H Creatinine 2.2 H Glucose 369 H POC Glucose 333 H 314 H Calcium 8.2 L Phosphorus Magnesium AST ALT Alkaline Phosphatase Troponin T C-Reactive Protein Total Protein Albumin Triglycerides HDL Cholesterol Miscellaneous Test Crossmatch 09/02/17 09/03/17 09/03/17 23:50 04:00 05:00 WBC 41.5 H* RBC 2.46 L Hgb 6.9 L Hct 21.3 L MCV MCH RDW 24.9 H Plt Count Lymph % (Auto) [place] % (Auto) [place] # Seg Neutrophils % Seg Neuts % (Manual) Lymphocytes % (Manual) 3.0 L Monocytes % (Manual) 9.5 H Nucleated RBC % 1.5 H Seg Neutrophils # Seg Neutrophils # Man 28.8 H Lymphocytes # (Manual) Monocytes # (Manual) 3.9 H Eosinophils # (Manual) Basophils # (Manual) PT INR POC ABG pH ABG pH POC ABG pCO2 POC ABG pO2 ABG pO2 ABG O2 Saturation ABG Base Excess ABG Hemoglobin Oxyhemoglobin Sodium Potassium Chloride Carbon Dioxide BUN 59 H Creatinine 1.9 H Glucose 231 H POC Glucose 240 H Calcium 8.0 L Phosphorus Magnesium AST ALT Alkaline Phosphatase 265 H Troponin T C-Reactive Protein Total Protein 4.4 L Albumin 1.7 L Triglycerides 180 H HDL Cholesterol Miscellaneous Test Crossmatch 09/03/17 09/03/17 09/03/17 05:32 11:52 16:55 WBC RBC Hgb Hct MCV MCH RDW Plt Count Lymph % (Auto) [place] % (Auto) [place] # Seg Neutrophils % Seg Neuts % (Manual) Lymphocytes % (Manual) Monocytes % (Manual) Nucleated RBC % Seg Neutrophils # Seg Neutrophils # Man Lymphocytes # (Manual) Monocytes # (Manual) Eosinophils # (Manual) Basophils # (Manual) PT INR POC ABG pH ABG pH POC ABG pCO2 POC ABG pO2 ABG pO2 ABG O2 Saturation ABG Base Excess ABG Hemoglobin Oxyhemoglobin Sodium Potassium Chloride Carbon Dioxide BUN Creatinine Glucose POC Glucose 188 H 285 H Calcium Phosphorus Magnesium AST ALT Alkaline Phosphatase Troponin T C-Reactive Protein Total Protein Albumin Triglycerides HDL Cholesterol Miscellaneous Test Crossmatch See Detail 09/03/17 09/03/17 09/03/17 17:44 23:56 Unknown WBC RBC Hgb Hct MCV MCH RDW Plt Count Lymph % (Auto) [place] % (Auto) [place] # Seg Neutrophils % Seg Neuts % (Manual) Lymphocytes % (Manual) Monocytes % (Manual) Nucleated RBC % Seg Neutrophils # Seg Neutrophils # Man Lymphocytes # (Manual) Monocytes # (Manual) Eosinophils # (Manual) Basophils # (Manual) PT INR POC ABG pH ABG pH POC ABG pCO2 POC ABG pO2 ABG pO2 133.4 H ABG O2 Saturation ABG Base Excess ABG Hemoglobin 5.8 L Oxyhemoglobin Sodium Potassium Chloride Carbon Dioxide BUN Creatinine Glucose POC Glucose 217 H 193 H Calcium Phosphorus Magnesium AST ALT Alkaline Phosphatase Troponin T C-Reactive Protein Total Protein Albumin Triglycerides HDL Cholesterol Miscellaneous Test Crossmatch 09/04/17 09/04/17 09/04/17 03:47 04:32 04:32 WBC 44.7 H* RBC 3.12 L Hgb 8.7 L Hct 26.7 L MCV MCH RDW 23.5 H Plt Count Lymph % (Auto) [place] % (Auto) [place] # Seg Neutrophils % Seg Neuts % (Manual) Lymphocytes % (Manual) 4.0 L Monocytes % (Manual) Nucleated RBC % 2.0 H Seg Neutrophils # Seg Neutrophils # Man 30.8 H Lymphocytes # (Manual) Monocytes # (Manual) 2.2 H Eosinophils # (Manual) Basophils # (Manual) PT INR POC ABG pH ABG pH POC ABG pCO2 POC ABG pO2 ABG pO2 135.0 H ABG O2 Saturation ABG Base Excess -2.5 L ABG Hemoglobin 7.9 L Oxyhemoglobin Sodium 136 L Potassium 5.2 H D Chloride 94.2 L Carbon Dioxide BUN 71 H Creatinine 2.3 H Glucose 235 H POC Glucose Calcium 8.3 L Phosphorus Magnesium AST ALT Alkaline Phosphatase Troponin T C-Reactive Protein Total Protein Albumin Triglycerides HDL Cholesterol Miscellaneous Test Crossmatch 09/04/17 09/04/17 09/04/17 05:48 10:43 12:38 WBC RBC Hgb Hct MCV MCH RDW Plt Count Lymph % (Auto) [place] % (Auto) [place] # Seg Neutrophils % Seg Neuts % (Manual) Lymphocytes % (Manual) Monocytes % (Manual) Nucleated RBC % Seg Neutrophils # Seg Neutrophils # Man Lymphocytes # (Manual) Monocytes # (Manual) Eosinophils # (Manual) Basophils # (Manual) PT INR POC ABG pH ABG pH POC ABG pCO2 POC ABG pO2 ABG pO2 ABG O2 Saturation ABG Base Excess ABG Hemoglobin Oxyhemoglobin Sodium Potassium Chloride Carbon Dioxide BUN Creatinine Glucose POC Glucose 329 H 444 H Calcium Phosphorus Magnesium AST ALT Alkaline Phosphatase Troponin T C-Reactive Protein Total Protein Albumin Triglycerides HDL Cholesterol Miscellaneous Test Flexitest 1 H Crossmatch 09/04/17 09/05/17 09/05/17 17:30 00:15 03:55 WBC 35.3 H RBC 2.87 L Hgb 8.1 L Hct 24.6 L MCV MCH RDW 23.3 H Plt Count Lymph % (Auto) [place] % (Auto) [place] # Seg Neutrophils % Seg Neuts % (Manual) 89.5 H Lymphocytes % (Manual) 3.0 L Monocytes % (Manual) Nucleated RBC % 2.5 H Seg Neutrophils # Seg Neutrophils # Man 31.6 H Lymphocytes # (Manual) 1.1 L Monocytes # (Manual) Eosinophils # (Manual) Basophils # (Manual) PT INR POC ABG pH ABG pH POC ABG pCO2 POC ABG pO2 ABG pO2 ABG O2 Saturation ABG Base Excess ABG Hemoglobin Oxyhemoglobin Sodium Potassium Chloride Carbon Dioxide BUN Creatinine Glucose POC Glucose 331 H 362 H Calcium Phosphorus Magnesium AST ALT Alkaline Phosphatase Troponin T C-Reactive Protein Total Protein Albumin Triglycerides HDL Cholesterol Miscellaneous Test Crossmatch 09/05/17 09/05/17 09/05/17 03:55 12:12 14:32 WBC RBC Hgb Hct MCV MCH RDW Plt Count Lymph % (Auto) [place] % (Auto) [place] # Seg Neutrophils % Seg Neuts % (Manual) Lymphocytes % (Manual) Monocytes % (Manual) Nucleated RBC % Seg Neutrophils # Seg Neutrophils # Man Lymphocytes # (Manual) Monocytes # (Manual) Eosinophils # (Manual) Basophils # (Manual) PT INR POC ABG pH ABG pH POC ABG pCO2 POC ABG pO2 ABG pO2 ABG O2 Saturation ABG Base Excess ABG Hemoglobin Oxyhemoglobin Sodium 136 L Potassium Chloride 94.7 L Carbon Dioxide BUN 55 H Creatinine 1.8 H Glucose 193 H POC Glucose 344 H 265 H Calcium 8.1 L Phosphorus Magnesium AST ALT Alkaline Phosphatase Troponin T C-Reactive Protein Total Protein Albumin Triglycerides HDL Cholesterol Miscellaneous Test Crossmatch 09/05/17 09/05/17 09/05/17 15:32 16:41 17:28 WBC RBC Hgb Hct MCV MCH RDW Plt Count Lymph % (Auto) [place] % (Auto) [place] # Seg Neutrophils % Seg Neuts % (Manual) Lymphocytes % (Manual) Monocytes % (Manual) Nucleated RBC % Seg Neutrophils # Seg Neutrophils # Man Lymphocytes # (Manual) Monocytes # (Manual) Eosinophils # (Manual) Basophils # (Manual) PT INR POC ABG pH ABG pH POC ABG pCO2 POC ABG pO2 ABG pO2 ABG O2 Saturation ABG Base Excess ABG Hemoglobin Oxyhemoglobin Sodium Potassium Chloride Carbon Dioxide BUN Creatinine Glucose POC Glucose 145 H 188 H 246 H Calcium Phosphorus Magnesium AST ALT Alkaline Phosphatase Troponin T C-Reactive Protein Total Protein Albumin Triglycerides HDL Cholesterol Miscellaneous Test Crossmatch 09/05/17 09/05/17 09/05/17 18:38 20:10 21:06 WBC RBC Hgb Hct MCV MCH RDW Plt Count Lymph % (Auto) [place] % (Auto) [place] # Seg Neutrophils % Seg Neuts % (Manual) Lymphocytes % (Manual) Monocytes % (Manual) Nucleated RBC % Seg Neutrophils # Seg Neutrophils # Man Lymphocytes # (Manual) Monocytes # (Manual) Eosinophils # (Manual) Basophils # (Manual) PT INR POC ABG pH ABG pH POC ABG pCO2 POC ABG pO2 ABG pO2 ABG O2 Saturation ABG Base Excess ABG Hemoglobin Oxyhemoglobin Sodium Potassium Chloride Carbon Dioxide BUN Creatinine Glucose POC Glucose 271 H 165 H 134 H Calcium Phosphorus Magnesium AST ALT Alkaline Phosphatase Troponin T C-Reactive Protein Total Protein Albumin Triglycerides HDL Cholesterol Miscellaneous Test Crossmatch 09/05/17 09/06/17 09/06/17 23:07 00:10 01:08 WBC RBC Hgb Hct MCV MCH RDW Plt Count Lymph % (Auto) [place] % (Auto) [place] # Seg Neutrophils % Seg Neuts % (Manual) Lymphocytes % (Manual) Monocytes % (Manual) Nucleated RBC % Seg Neutrophils # Seg Neutrophils # Man Lymphocytes # (Manual) Monocytes # (Manual) Eosinophils # (Manual) Basophils # (Manual) PT INR POC ABG pH ABG pH POC ABG pCO2 POC ABG pO2 ABG pO2 ABG O2 Saturation ABG Base Excess ABG Hemoglobin Oxyhemoglobin Sodium Potassium Chloride Carbon Dioxide BUN Creatinine Glucose POC Glucose 135 H 147 H 133 H Calcium Phosphorus Magnesium AST ALT Alkaline Phosphatase Troponin T C-Reactive Protein Total Protein Albumin Triglycerides HDL Cholesterol Miscellaneous Test Crossmatch 09/06/17 09/06/17 09/06/17 02:01 03:08 05:30 WBC 38.6 H RBC 2.95 L Hgb 8.3 L Hct 25.3 L MCV MCH RDW 22.2 H Plt Count Lymph % (Auto) [place] % (Auto) [place] # Seg Neutrophils % Seg Neuts % (Manual) Lymphocytes % (Manual) 2.0 L Monocytes % (Manual) Nucleated RBC % 5.0 H Seg Neutrophils # Seg Neutrophils # Man 25.9 H Lymphocytes # (Manual) 0.8 L Monocytes # (Manual) 1.9 H Eosinophils # (Manual) Basophils # (Manual) PT INR POC ABG pH ABG pH POC ABG pCO2 POC ABG pO2 ABG pO2 ABG O2 Saturation ABG Base Excess ABG Hemoglobin Oxyhemoglobin Sodium Potassium Chloride Carbon Dioxide BUN Creatinine Glucose POC Glucose 146 H 135 H Calcium Phosphorus Magnesium AST ALT Alkaline Phosphatase Troponin T C-Reactive Protein Total Protein Albumin Triglycerides HDL Cholesterol Miscellaneous Test Crossmatch 09/06/17 09/06/17 09/06/17 05:30 05:30 05:48 WBC RBC Hgb Hct MCV MCH RDW Plt Count Lymph % (Auto) [place] % (Auto) [place] # Seg Neutrophils % Seg Neuts % (Manual) Lymphocytes % (Manual) Monocytes % (Manual) Nucleated RBC % Seg Neutrophils # Seg Neutrophils # Man Lymphocytes # (Manual) Monocytes # (Manual) Eosinophils # (Manual) Basophils # (Manual) PT INR POC ABG pH ABG pH POC ABG pCO2 POC ABG pO2 ABG pO2 ABG O2 Saturation ABG Base Excess ABG Hemoglobin Oxyhemoglobin Sodium 135 L Potassium Chloride 93.5 L Carbon Dioxide BUN 82 H Creatinine 2.3 H Glucose 148 H POC Glucose 152 H Calcium Phosphorus Magnesium AST ALT Alkaline Phosphatase Troponin T C-Reactive Protein 2.80 H Total Protein Albumin Triglycerides HDL Cholesterol Miscellaneous Test Crossmatch 09/06/17 09/06/17 09/06/17 08:04 09:06 10:19 WBC RBC Hgb Hct MCV MCH RDW Plt Count Lymph % (Auto) [place] % (Auto) [place] # Seg Neutrophils % Seg Neuts % (Manual) Lymphocytes % (Manual) Monocytes % (Manual) Nucleated RBC % Seg Neutrophils # Seg Neutrophils # Man Lymphocytes # (Manual) Monocytes # (Manual) Eosinophils # (Manual) Basophils # (Manual) PT INR POC ABG pH ABG pH POC ABG pCO2 POC ABG pO2 ABG pO2 ABG O2 Saturation ABG Base Excess ABG Hemoglobin Oxyhemoglobin Sodium Potassium Chloride Carbon Dioxide BUN Creatinine Glucose POC Glucose 164 H 172 H 186 H Calcium Phosphorus Magnesium AST ALT Alkaline Phosphatase Troponin T C-Reactive Protein Total Protein Albumin Triglycerides HDL Cholesterol Miscellaneous Test Crossmatch 09/06/17 09/06/17 09/06/17 10:57 13:12 13:40 WBC RBC Hgb 8.9 L Hct 28.5 L MCV MCH RDW Plt Count Lymph % (Auto) [place] % (Auto) [place] # Seg Neutrophils % Seg Neuts % (Manual) Lymphocytes % (Manual) Monocytes % (Manual) Nucleated RBC % Seg Neutrophils # Seg Neutrophils # Man Lymphocytes # (Manual) Monocytes # (Manual) Eosinophils # (Manual) Basophils # (Manual) PT INR POC ABG pH ABG pH POC ABG pCO2 POC ABG pO2 ABG pO2 ABG O2 Saturation ABG Base Excess ABG Hemoglobin Oxyhemoglobin Sodium Potassium Chloride Carbon Dioxide BUN Creatinine Glucose POC Glucose 162 H 166 H Calcium Phosphorus Magnesium AST ALT Alkaline Phosphatase Troponin T C-Reactive Protein Total Protein Albumin Triglycerides HDL Cholesterol Miscellaneous Test Crossmatch 09/06/17 09/07/17 09/07/17 17:36 00:13 03:50 WBC 47.0 H* RBC 2.81 L Hgb 8.1 L Hct 24.1 L MCV MCH RDW 22.5 H Plt Count Lymph % (Auto) [place] % (Auto) [place] # Seg Neutrophils % Seg Neuts % (Manual) Lymphocytes % (Manual) 9.0 L Monocytes % (Manual) Nucleated RBC % 6.0 H Seg Neutrophils # Seg Neutrophils # Man 27.3 H Lymphocytes # (Manual) Monocytes # (Manual) 0.9 H Eosinophils # (Manual) 1.9 H Basophils # (Manual) PT INR POC ABG pH ABG pH POC ABG pCO2 POC ABG pO2 ABG pO2 ABG O2 Saturation ABG Base Excess ABG Hemoglobin Oxyhemoglobin Sodium Potassium Chloride Carbon Dioxide BUN Creatinine Glucose POC Glucose 161 H 183 H Calcium Phosphorus Magnesium AST ALT Alkaline Phosphatase Troponin T C-Reactive Protein Total Protein Albumin Triglycerides HDL Cholesterol Miscellaneous Test Crossmatch 09/07/17 09/07/17 09/07/17 03:50 05:12 05:23 WBC RBC Hgb Hct MCV MCH RDW Plt Count Lymph % (Auto) [place] % (Auto) [place] # Seg Neutrophils % Seg Neuts % (Manual) Lymphocytes % (Manual) Monocytes % (Manual) Nucleated RBC % Seg Neutrophils # Seg Neutrophils # Man Lymphocytes # (Manual) Monocytes # (Manual) Eosinophils # (Manual) Basophils # (Manual) PT INR POC ABG pH ABG pH POC ABG pCO2 POC ABG pO2 ABG pO2 ABG O2 Saturation ABG Base Excess ABG Hemoglobin 7.7 L Oxyhemoglobin 94.8 L Sodium 136 L Potassium Chloride 96.3 L Carbon Dioxide BUN 61 H Creatinine 1.7 H Glucose 132 H POC Glucose 162 H Calcium 7.8 L Phosphorus Magnesium AST ALT Alkaline Phosphatase Troponin T C-Reactive Protein Total Protein Albumin Triglycerides HDL Cholesterol Miscellaneous Test Crossmatch 09/07/17 09/07/17 09/07/17 11:48 17:07 18:21 WBC RBC Hgb Hct MCV MCH RDW Plt Count Lymph % (Auto) [place] % (Auto) [place] # Seg Neutrophils % Seg Neuts % (Manual) Lymphocytes % (Manual) Monocytes % (Manual) Nucleated RBC % Seg Neutrophils # Seg Neutrophils # Man Lymphocytes # (Manual) Monocytes # (Manual) Eosinophils # (Manual) Basophils # (Manual) PT INR POC ABG pH ABG pH POC ABG pCO2 POC ABG pO2 ABG pO2 ABG O2 Saturation ABG Base Excess ABG Hemoglobin Oxyhemoglobin Sodium Potassium Chloride Carbon Dioxide BUN Creatinine Glucose POC Glucose 200 H 181 H Calcium Phosphorus Magnesium AST ALT Alkaline Phosphatase Troponin T C-Reactive Protein Total Protein Albumin Triglycerides HDL Cholesterol Miscellaneous Test Crossmatch See Detail 09/08/17 09/08/17 09/08/17 00:06 04:05 04:05 WBC 49.7 H* RBC 2.58 L Hgb 7.3 L Hct 22.7 L MCV MCH RDW 22.5 H Plt Count Lymph % (Auto) [place] % (Auto) [place] # Seg Neutrophils % Seg Neuts % (Manual) 90.5 H Lymphocytes % (Manual) 1.5 L Monocytes % (Manual) Nucleated RBC % Seg Neutrophils # Seg Neutrophils # Man 45.0 H Lymphocytes # (Manual) 0.7 L Monocytes # (Manual) 1.7 H Eosinophils # (Manual) Basophils # (Manual) PT INR POC ABG pH ABG pH POC ABG pCO2 POC ABG pO2 ABG pO2 ABG O2 Saturation ABG Base Excess ABG Hemoglobin Oxyhemoglobin Sodium 132 L Potassium Chloride 92.1 L Carbon Dioxide BUN 82 H Creatinine 2.2 H Glucose 162 H POC Glucose 168 H Calcium 8.3 L Phosphorus 5.20 H D Magnesium AST ALT Alkaline Phosphatase 199 H Troponin T C-Reactive Protein Total Protein 4.5 L Albumin 1.7 L Triglycerides HDL Cholesterol Miscellaneous Test Crossmatch 09/08/17 09/08/17 04:41 09:21 WBC RBC Hgb Hct MCV MCH RDW Plt Count Lymph % (Auto) [place] % (Auto) [place] # Seg Neutrophils % Seg Neuts % (Manual) Lymphocytes % (Manual) Monocytes % (Manual) Nucleated RBC % Seg Neutrophils # Seg Neutrophils # Man Lymphocytes # (Manual) Monocytes # (Manual) Eosinophils # (Manual) Basophils # (Manual) PT INR POC ABG pH ABG pH POC ABG pCO2 POC ABG pO2 ABG pO2 218.5 H ABG O2 Saturation 99.3 H ABG Base Excess -3.5 L ABG Hemoglobin 7.7 L Oxyhemoglobin Sodium Potassium Chloride Carbon Dioxide BUN Creatinine Glucose POC Glucose 235 H Calcium Phosphorus Magnesium AST ALT Alkaline Phosphatase Troponin T C-Reactive Protein Total Protein Albumin Triglycerides HDL Cholesterol Miscellaneous Test Crossmatch
--- NOTE | 2017-09-08 14:18 | Progress Note ---
Assessment and Plan Assessment and plan: 62 YO Female with MO, ESRD-PD (with PD cath in place )(Daily), HTN, OA, Ischemic Cardiomyopathy currently on Milrinone, Chronic Pain who came to ED with lightheaded and syncope, she c/o abdomnal pain x 2 days, was found to have hypotension, septic shock and intra-abdominal abscess. Sepsis secondary to peritonitis, Intra abdominal abscess and Bowel obstruction - Patient had completed 14 days of meropenem and diflucan, was restarted again due to fever/septic shock - continue abx -ID on board - she has had the following procedures 08/31: Ex lap with abdominal wash out and closure 08/17: Ex lap with G tube placement, EGD, abdominal wash out and removal of PD Cath -taper steroids Acute hypoxic respiratory failure on MV > 96 hours continue ventilator, planned for tracheostomy, has failed extubation multiple times Acute rectal bleeding with severe acute blood loss anemia -EGD showed small gastric ulcer -sp multiple transfusions -- GI consult appreciated - Patient had CTA of abdomen and pelvis no active bleeding, CT Abdomen repeated 09/06, no acute findings - transfuse to keep Hg above 8 given septic shock -continue PPI drip, too unstable for C scope at this time -wean steroids melana, GIB likely from PUD -start PPI drip, keep NPO, monitor Hg and transfuse to keep above 8 -wean off steroids. ESRD -continue HD per renal per femoral HD cath -needs perm cath when improved Septic shock. - continue IV pressors continue abx, ID input appreciated Ulcerative esophagitis/small gastric ulcer on EGD - IV pantoprazole Severe Protein calorie malnutrition - Continue with TPN Sacral and lower extremity wound, POA - continue wound care NSVT likely due to levophed, wean as tolerated cardiology input appreciated --DVT prophylaxis; SCDs - D/C Heparin because of GI bleed Plan of care discussed with the patient's family at bedside Disposition - continue ICU care Prognosis: guarded The high probability of a clinically significant, sudden or life threatening deterioration of the [cv, pulmonary and GI] system(s) required my full and direct attention, intervention and personal management. The aggregate critical care time was [33] minutes. This time is in addition to time spent performing reported procedures but includes the following: [] Data Review and interpretation [] Patient assessment and monitoring of vital signs [] Documentation [] Medication orders and management History Interval history: She has had no more episodes of melena today. Hospitalist Physical - Physical exam Narrative exam: General.: Obese HEENT: Moist mucous membranes, extraocular muscles intact, no lymphadenopathy Neck: supple Cardiac: S1-S2 heard Lungs: clear to auscultation bilaterally Abdomen: soft, bowel sounds normal, other (obese, soft, dressing not removed) Extremities: no edema clubbing or cyanosis Skin: no rash or lesions Neurologic: Intubated, obeys commands, arousable - Constitutional Vitals: Temp Pulse Resp BP Pulse Ox 98.8 F 94 H 20 102/51 100 09/08/17 12:00 09/08/17 12:13 09/08/17 11:15 09/08/17 12:13 09/08/17 12:13 Results - Labs CBC & Chem 7: 09/08/17 04:05 09/08/17 04:05 Labs: Laboratory Last Values WBC 49.7 K/mm3 (4.5-11.0) H* 09/08/17 04:05 RBC 2.58 M/mm3 (3.65-5.03) L 09/08/17 04:05 Hgb 7.3 gm/dl (10.1-14.3) L 09/08/17 04:05 Hct 22.7 % (30.3-42.9) L 09/08/17 04:05 MCV 88 fl (79-97) 09/08/17 04:05 MCH 28 pg (28-32) 09/08/17 04:05 MCHC 32 % (30-34) 09/08/17 04:05 RDW 22.5 % (13.2-15.2) H 09/08/17 04:05 Plt Count 203 K/mm3 (140-440) 09/08/17 04:05 Lymph % (Auto) Catalytic Converter Operator 08/19/17 07:37 [place] % (Auto) Catalytic Converter Operator 08/19/17 07:37 Eos % (Auto) Catalytic Converter Operator 08/19/17 07:37 Baso % (Auto) Catalytic Converter Operator 08/19/17 07:37 Lymph # Catalytic Converter Operator 08/19/17 07:37 [place] # Catalytic Converter Operator 08/19/17 07:37 Eos # Catalytic Converter Operator 08/19/17 07:37 Baso # Catalytic Converter Operator 08/19/17 07:37 Add Manual Diff Complete 09/08/17 04:05 Total Counted 200 09/08/17 04:05 Seg Neutrophils % Catalytic Converter Operator 09/08/17 04:05 Seg Neuts % (Manual) 90.5 % (40.0-70.0) H 09/08/17 04:05 Band Neutrophils % 4.5 % 09/08/17 04:05 Lymphocytes % (Manual) 1.5 % (13.4-35.0) L 09/08/17 04:05 Reactive Lymphs % (Man) 0 % 09/08/17 04:05 Monocytes % (Manual) 3.5 % (0.0-7.3) 09/08/17 04:05 Eosinophils % (Manual) 0 % (0.0-4.3) 09/08/17 04:05 Basophils % (Manual) 0 % (0.0-1.8) 09/08/17 04:05 Metamyelocytes % 0 % 09/08/17 04:05 Myelocytes % 0 % 09/08/17 04:05 Promyelocytes % 0 % 09/08/17 04:05 Blast Cells % 0 % 09/08/17 04:05 Nucleated RBC % 0.5 % (0.0-0.9) 09/08/17 04:05 Seg Neutrophils # Catalytic Converter Operator 08/19/17 07:37 Seg Neutrophils # Man 45.0 K/mm3 (1.8-7.7) H 09/08/17 04:05 Band Neutrophils # 2.2 K/mm3 09/08/17 04:05 Lymphocytes # (Manual) 0.7 K/mm3 (1.2-5.4) L 09/08/17 04:05 Abs React Lymphs (Man) 0.0 K/mm3 09/08/17 04:05 Monocytes # (Manual) 1.7 K/mm3 (0.0-0.8) H 09/08/17 04:05 Eosinophils # (Manual) 0.0 K/mm3 (0.0-0.4) 09/08/17 04:05 Basophils # (Manual) 0.0 K/mm3 (0.0-0.1) 09/08/17 04:05 Metamyelocytes # 0.0 K/mm3 09/08/17 04:05 Myelocytes # 0.0 K/mm3 09/08/17 04:05 Promyelocytes # 0.0 K/mm3 09/08/17 04:05 Blast Cells # 0.0 K/mm3 09/08/17 04:05 Pathologist Review Not Reportable 08/30/17 05:20 WBC Morphology Not Reportable 09/08/17 04:05 Hypersegmented Neuts Not Reportable 09/08/17 04:05 Hyposegmented Neuts Not Reportable 09/08/17 04:05 Hypogranular Neuts Not Reportable 09/08/17 04:05 Smudge Cells Few 09/08/17 04:05 Toxic Granulation Not Reportable 09/08/17 04:05 Toxic Vacuolation Not Reportable 09/08/17 04:05 Dohle Bodies Not Reportable 09/08/17 04:05 Pelger-Huet Anomaly Not Reportable 09/08/17 04:05 Ariel Rods Not Reportable 09/08/17 04:05 Platelet Estimate Appears normal 09/08/17 04:05 Clumped Platelets Not Reportable 09/08/17 04:05 Plt Clumps, EDTA Not Reportable 09/08/17 04:05 Large Platelets Not Reportable 09/08/17 04:05 Giant Platelets Not Reportable 09/08/17 04:05 Platelet Satelliting Not Reportable 09/08/17 04:05 Plt Morphology Comment Not Reportable 09/08/17 04:05 RBC Morphology Not Reportable 09/08/17 04:05 Dimorphic RBCs Not Reportable 09/08/17 04:05 Polychromasia Few 09/08/17 04:05 Hypochromasia Few 09/08/17 04:05 Poikilocytosis Not Reportable 09/08/17 04:05 Anisocytosis 2+ 09/08/17 04:05 Microcytosis Not Reportable 09/08/17 04:05 Macrocytosis Not Reportable 09/08/17 04:05 Spherocytes Not Reportable 09/08/17 04:05 Pappenheimer Bodies Not Reportable 09/08/17 04:05 Sickle Cells Not Reportable 09/08/17 04:05 Target Cells Not Reportable 09/08/17 04:05 Tear Drop Cells Not Reportable 09/08/17 04:05 Ovalocytes Not Reportable 09/08/17 04:05 Stomatocytes Rare 09/01/17 05:00 Helmet Cells Not Reportable 09/08/17 04:05 [place] Bodies Not Reportable 09/08/17 04:05 [place] Rings Not Reportable 09/08/17 04:05 [place] Cells Not Reportable 09/08/17 04:05 Bite Cells Not Reportable 09/08/17 04:05 Crenated Cell Not Reportable 09/08/17 04:05 Elliptocytes Not Reportable 09/08/17 04:05 Acanthocytes (Spur) Not Reportable 09/08/17 04:05 Rouleaux Not Reportable 09/08/17 04:05 Hemoglobin C Crystals Not Reportable 09/08/17 04:05 Schistocytes Not Reportable 09/08/17 04:05 Malaria parasites Not Reportable 09/08/17 04:05 [place] Bodies Not Reportable 09/08/17 04:05 Hem Pathologist Commnt No 09/08/17 04:05 PT 15.1 Sec. (12.2-14.9) H 08/31/17 18:15 INR 1.13 (0.87-1.13) 08/31/17 18:15 APTT 28.7 Sec. (24.2-36.6) 08/31/17 18:15 POC ABG pH 7.335 (7.35-7.45) L 08/30/17 03:31 ABG pH 7.397 pH Units (7.350-7.450) 09/08/17 09:21 POC ABG pCO2 44.1 (35-45) 08/30/17 03:31 ABG pCO2 34.9 mm Hg 09/08/17 09:21 POC ABG pO2 117 (80-105) H 08/30/17 03:31 ABG pO2 218.5 mm Hg (80.0-90.0) H 09/08/17 09:21 POC ABG HCO3 23.5 08/30/17 03:31 ABG HCO3 21.0 mmol/L (20.0-26.0) 09/08/17 09:21 POC ABG Total CO2 25 08/30/17 03:31 POC ABG O2 Sat 98 08/30/17 03:31 ABG O2 Saturation 99.3 % (95.0-99.0) H 09/08/17 09:21 ABG O2 Content 11.1 (0.0-44) 09/08/17 09:21 POC ABG Base Excess -2 08/30/17 03:31 ABG Base Excess -3.5 mmol/L (-2.0-3.0) L 09/08/17 09:21 ABG Hemoglobin 7.7 gm/dl (12.0-16.0) L 09/08/17 09:21 ABG Carboxyhemoglobin 1.8 % (0.0-5.0) 09/08/17 09:21 ABG Methemoglobin 0.5 % (0.0-1.5) 09/08/17 09:21 VBG pH 7.462 (7.320-7.420) H 08/08/17 14:52 Oxyhemoglobin 97.1 % (95.0-99.0) 09/08/17 09:21 FiO2 40 % 09/08/17 09:21 Sodium 132 mmol/L (137-145) L 09/08/17 04:05 Potassium 4.0 mmol/L (3.6-5.0) 09/08/17 04:05 Chloride 92.1 mmol/L (98-107) L 09/08/17 04:05 Carbon Dioxide 22 mmol/L (22-30) 09/08/17 04:05 Anion Gap 22 mmol/L 09/08/17 04:05 BUN 82 mg/dL (7-17) H 09/08/17 04:05 Creatinine 2.2 mg/dL (0.7-1.2) H 09/08/17 04:05 Estimated GFR 28 ml/min 09/08/17 04:05 BUN/Creatinine Ratio 37 % 09/08/17 04:05 Glucose 162 mg/dL (65-100) H 09/08/17 04:05 POC Glucose 235 (70-105) H 09/08/17 04:41 Lactic Acid 1.60 mmol/L (0.7-2.0) 08/17/17 11:20 Calcium 8.3 mg/dL (8.4-10.2) L 09/08/17 04:05 Phosphorus 5.20 mg/dL (2.5-4.5) H D 09/08/17 04:05 Magnesium 2.30 mg/dL (1.7-2.3) 09/08/17 04:05 Total Bilirubin 1.00 mg/dL (0.1-1.2) 09/08/17 04:05 Direct Bilirubin 0.2 mg/dL (0-0.2) 08/08/17 14:11 Indirect Bilirubin 0.3 mg/dL 08/08/17 14:11 AST 14 units/L (5-40) 09/08/17 04:05 ALT 16 units/L (7-56) 09/08/17 04:05 Alkaline Phosphatase 199 units/L (35-129) H 09/08/17 04:05 Ammonia 25.0 umol/L (25-60) 08/08/17 14:52 Troponin T 0.132 ng/mL (0.00-0.029) H* 08/09/17 13:25 C-Reactive Protein 2.80 mg/dL (0.00-1.30) H 09/06/17 05:30 NT-Pro-B Natriuret Pep 6156 pg/mL (0-900) H 08/08/17 14:11 Total Protein 4.5 g/dL (6.3-8.2) L 09/08/17 04:05 Albumin 1.7 g/dL (3.9-5) L 09/08/17 04:05 Albumin/Globulin Ratio 0.6 % 09/08/17 04:05 Triglycerides 180 mg/dL (2-149) H 09/03/17 04:00 Cholesterol 91 mg/dL (50-199) 08/08/17 21:23 LDL Cholesterol Direct 53 mg/dL (50-130) 08/08/17 21:23 HDL Cholesterol 26 mg/dL (40-59) L 08/08/17 21:23 Cholesterol/HDL Ratio 3.50 % 08/08/17 21:23 Amylase 45 units/L (27-131) 08/16/17 09:50 Lipase 34 units/L (13-60) 08/16/17 09:50 TSH 6.580 mlU/mL (0.270-4.200) H 08/08/17 14:22 Free T4 1.46 ng/dL (0.76-1.46) 08/08/17 14:22 Total Cortisol 30.1 mcg/dL () 08/13/17 06:14 Urine Color Yellow (Yellow) 08/08/17 20:15 Urine Turbidity Turbid (Clear) 08/08/17 20:15 Urine pH 8.0 (5.0-7.0) H 08/08/17 20:15 Ur Specific [place] 1.015 (1.003-1.030) 08/08/17 20:15 Urine Protein 100 mg/dl mg/dL (Negative) 08/08/17 20:15 Urine Glucose (UA) Neg mg/dL (Negative) 08/08/17 20:15 Urine Ketones Neg mg/dL (Negative) 08/08/17 20:15 Urine Blood Mod (Negative) 08/08/17 20:15 Urine Nitrite Neg (Negative) 08/08/17 20:15 Urine Bilirubin Neg (Negative) 08/08/17 20:15 Urine Urobilinogen < 2.0 mg/dL (<2.0) 08/08/17 20:15 Ur Leukocyte Esterase Lg (Negative) 08/08/17 20:15 Urine WBC (Auto) 24.0 /HPF (0.0-6.0) H 08/08/17 20:15 Urine RBC (Auto) 3.0 /HPF (0.0-6.0) 08/08/17 20:15 U Epithel Cells (Auto) 3.0 /HPF (0-13.0) 08/08/17 20:15 Urine Bacteria (Auto) 4+ /HPF (Negative) 08/08/17 20:15 Urine Mucus 3+ /HPF 08/08/17 20:15 Fluid Type Peritoneal 08/08/17 18:18 Fluid Color Straw 08/08/17 18:18 Fluid Appearance Clear 08/08/17 18:18 Fluid pH 7.74 08/08/17 18:18 Fluid WBC 4 /mm3 08/08/17 18:18 Fluid RBC 1 /mm3 08/08/17 18:18 Fluid Seg Neutrophils 12 % 08/08/17 18:18 Fluid Lymphocytes 0 % 08/08/17 18:18 Fluid Reactive Lymphs 0 % 08/08/17 18:18 Fluid Monocytes 1 % 08/08/17 18:18 Fluid Eosinophils 0 % 08/08/17 18:18 Fluid Basophils 0 % 08/08/17 18:18 Fluid Glucose 315 mg/dL (40-70) H 08/08/17 18:18 Random Vancomycin 19.5 ug/mL (0-40.0) 08/22/17 03:40 Hep Bs Antigen Non-reactive (Negative) 08/22/17 03:40 Hepatitis C Antibody Non-reactive (NonReactive) 08/22/17 03:40 Miscellaneous Test Flexitest 1 H 09/04/17 10:43 Blood Type O POSITIVE 09/07/17 17:07 Antibody Screen TNR 09/07/17 17:07 VAN Antibody Screen Negative 09/07/17 17:07 Crossmatch See Detail 09/07/17 17:07
--- NOTE | 2017-09-08 14:59 | Progress Note ---
Assessment and Plan 62 y.o. F s/p ex lap, abdominal wash out and abdominal wall closure after wound dehiscence 2 weeks s/p ex lap for gastric perforation and sbo. Sepsis: Pt requiring levo, with requirements increased post HD but now less. Steroids are being weaned down as well, now 25 Daily. . Source of sepsis unknown. Recent CT abd pelvis does not show any collections. Rec. follow blood cultures. [place] cath cultured then removed today. F/u cultures. -Wound care following wounds on legs/sacrum -zyvox and diflucan per ID- added merrem due to worsening leukocytosis VDRF: Trach planned for tomorrow. GI bleed-resolved: Pt started to have melena now resolved. The source is likely lower GI since G tube has remained bilious. Rec. GI to re-eval however she is likely unstable for C-scope at this time. If bleeding continues rec bleeding scan for possible source. Prev Gastric perf: NG re positioned-abd. xr confirmed proper placement. Continue NG to intermit. low wall gravity. If G tube output continues to decrease and the pt does not have signs of ileus, we will perform methylene blue test a bedside via NG tube to assess the status of the prev. perforation. If perf healed, will do clamp trial of G tube to asses if she could then be started on trickle feeds. The goal is for pt to be started on trickle enteric feeds however these cannot be started until healing of the previous gastric perf is confirmed. Nutrition: TPN at 75- replace G tube losses though she is renal? Renal to manage fluids. -MERVIN continues to be drk red- on recent ex lap a hematoma was inferior to stomach to noted but no active bleeding. MERVIN contents may rep breaking down of old clot. Rec. trend H and H. DVT proph: scds hold hep with GI bleed. GI: PPI. - Patient Problems (1) Peritonitis (acute) generalized Current Visit: Yes Status: Acute Subjective Narrative: Pt seen and examined at beside. Family at bedside. No overnight events- no bloody bms. Levo at 10. Pt opens eyes to pain an moves arms but does not follow commands. NG : minimal cc bilous /24hrs MERVIN: 90cc drk red, thin no clots. /24hrs. Objective Vital Signs - 12hr 09/08/17 09/08/17 09/08/17 02:55 03:00 03:15 Temperature Pulse Rate 100 H 106 H 103 H Pulse Rate [ From Monitor] Pulse Rate [ Throughout] Respiratory 20 9 L 14 Rate Respiratory Rate [ Throughout] Blood Pressure 108/48 104/54 O2 Sat by Pulse 100 100 100 Oximetry 09/08/17 09/08/17 09/08/17 03:30 03:46 03:55 Temperature 97.5 F L Pulse Rate 100 H 103 H Pulse Rate [ From Monitor] Pulse Rate [ Throughout] Respiratory 14 15 Rate Respiratory Rate [ Throughout] Blood Pressure 107/56 108/50 O2 Sat by Pulse 100 100 Oximetry 09/08/17 09/08/17 09/08/17 03:59 04:00 04:15 Temperature Pulse Rate 101 H 100 H 101 H Pulse Rate [ From Monitor] Pulse Rate [ Throughout] Respiratory 15 18 Rate Respiratory Rate [ Throughout] Blood Pressure 103/52 103/52 104/52 O2 Sat by Pulse 100 100 100 Oximetry 09/08/17 09/08/17 09/08/17 04:30 04:46 05:00 Temperature Pulse Rate 103 H 102 H 102 H Pulse Rate [ From Monitor] Pulse Rate [ Throughout] Respiratory 18 18 30 H Rate Respiratory Rate [ Throughout] Blood Pressure 126/60 102/53 112/55 O2 Sat by Pulse 100 100 100 Oximetry 09/08/17 09/08/17 09/08/17 05:15 05:30 05:40 Temperature Pulse Rate 101 H 108 H 108 H Pulse Rate [ From Monitor] Pulse Rate [ Throughout] Respiratory 21 18 20 Rate Respiratory Rate [ Throughout] Blood Pressure 106/53 106/53 O2 Sat by Pulse 100 98 100 Oximetry 09/08/17 09/08/17 09/08/17 05:45 06:00 06:16 Temperature Pulse Rate 102 H 101 H 102 H Pulse Rate [ From Monitor] Pulse Rate [ Throughout] Respiratory 20 17 20 Rate Respiratory Rate [ Throughout] Blood Pressure 98/45 101/51 101/49 O2 Sat by Pulse 100 100 100 Oximetry 09/08/17 09/08/17 09/08/17 06:30 06:35 06:45 Temperature Pulse Rate 99 H 99 H 98 H Pulse Rate [ From Monitor] Pulse Rate [ Throughout] Respiratory 21 21 Rate Respiratory Rate [ Throughout] Blood Pressure 100/48 103/50 O2 Sat by Pulse 100 100 100 Oximetry 09/08/17 09/08/17 09/08/17 07:00 07:15 07:30 Temperature Pulse Rate 99 H 99 H 99 H Pulse Rate [ From Monitor] Pulse Rate [ Throughout] Respiratory 12 19 20 Rate Respiratory Rate [ Throughout] Blood Pressure 105/56 106/51 110/52 O2 Sat by Pulse 100 100 100 Oximetry 09/08/17 09/08/17 09/08/17 07:45 08:00 08:15 Temperature 97.7 F Pulse Rate 98 H 97 H 97 H Pulse Rate [ 97 H From Monitor] Pulse Rate [ Throughout] Respiratory 15 20 19 Rate Respiratory Rate [ Throughout] Blood Pressure 103/61 109/55 99/50 O2 Sat by Pulse 100 100 100 Oximetry 09/08/17 09/08/17 09/08/17 08:30 08:46 09:00 Temperature Pulse Rate 96 H 98 H 97 H Pulse Rate [ From Monitor] Pulse Rate [ Throughout] Respiratory 20 20 20 Rate Respiratory Rate [ Throughout] Blood Pressure 101/52 100/53 111/50 O2 Sat by Pulse 100 100 100 Oximetry 09/08/17 09/08/17 09/08/17 09:09 09:16 09:19 Temperature Pulse Rate 100 H Pulse Rate [ From Monitor] Pulse Rate [ 99 H 98 H Throughout] Respiratory 20 Rate Respiratory 20 20 Rate [ Throughout] Blood Pressure 101/35 O2 Sat by Pulse 100 Oximetry 09/08/17 09/08/17 09/08/17 09:21 09:30 09:45 Temperature Pulse Rate 99 H 98 H 99 H Pulse Rate [ From Monitor] Pulse Rate [ Throughout] Respiratory 20 20 Rate Respiratory Rate [ Throughout] Blood Pressure 111/50 103/44 105/51 O2 Sat by Pulse 100 100 100 Oximetry 09/08/17 09/08/17 09/08/17 10:00 10:15 10:30 Temperature Pulse Rate 97 H 98 H 96 H Pulse Rate [ From Monitor] Pulse Rate [ Throughout] Respiratory 20 20 20 Rate Respiratory Rate [ Throughout] Blood Pressure 108/48 100/81 92/54 O2 Sat by Pulse 100 100 100 Oximetry 09/08/17 09/08/17 09/08/17 10:45 11:00 11:15 Temperature Pulse Rate 96 H 96 H 93 H Pulse Rate [ From Monitor] Pulse Rate [ Throughout] Respiratory 14 20 20 Rate Respiratory Rate [ Throughout] Blood Pressure 92/53 92/53 98/50 O2 Sat by Pulse 100 100 100 Oximetry 09/08/17 09/08/17 09/08/17 11:30 11:46 12:00 Temperature 98.8 F Pulse Rate 97 H 93 H 93 H Pulse Rate [ From Monitor] Pulse Rate [ Throughout] Respiratory 18 20 20 Rate Respiratory Rate [ Throughout] Blood Pressure 88/52 100/51 102/51 O2 Sat by Pulse 100 100 100 Oximetry 09/08/17 09/08/17 09/08/17 12:13 12:15 12:30 Temperature Pulse Rate 94 H 92 H 94 H Pulse Rate [ From Monitor] Pulse Rate [ Throughout] Respiratory 20 20 Rate Respiratory Rate [ Throughout] Blood Pressure 102/51 82/48 103/48 O2 Sat by Pulse 100 100 100 Oximetry 09/08/17 09/08/17 09/08/17 12:45 13:00 13:15 Temperature Pulse Rate 91 H 91 H 92 H Pulse Rate [ From Monitor] Pulse Rate [ Throughout] Respiratory 20 19 20 Rate Respiratory Rate [ Throughout] Blood Pressure 105/49 104/51 96/49 O2 Sat by Pulse 100 100 100 Oximetry 09/08/17 09/08/17 09/08/17 13:30 13:45 14:00 Temperature Pulse Rate 92 H 90 90 Pulse Rate [ From Monitor] Pulse Rate [ Throughout] Respiratory 20 20 20 Rate Respiratory Rate [ Throughout] Blood Pressure 96/48 102/50 104/49 O2 Sat by Pulse 100 100 100 Oximetry 09/08/17 09/08/17 09/08/17 14:15 14:21 14:29 Temperature Pulse Rate 89 Pulse Rate [ From Monitor] Pulse Rate [ 90 87 Throughout] Respiratory 20 Rate Respiratory 20 20 Rate [ Throughout] Blood Pressure 95/49 O2 Sat by Pulse 100 Oximetry - General physical appearance well developed, no distress, chronically ill, obese - ENT other (NG in place. ) - Respiratory normal expansion, other (vent ett) - Abdomen soft, other (obese, soft, grimace with palp to midline. Midline dressing removed. packing with drk old blood clot at superior portion of incision. serosang discharge midline and inferior. Wound irrigated with NS and repacked with kerlex and covered. MERVIN and G tube in place. ) - Musculoskeletal other - Labs 09/08/17 04:05 09/08/17 04:05 Diabetes panel 09/08/17 Range/Units 04:05 Sodium 132 L (137-145) mmol/L Potassium 4.0 (3.6-5.0) mmol/L Chloride 92.1 L (98-107) mmol/L Carbon Dioxide 22 (22-30) mmol/L BUN 82 H (7-17) mg/dL Creatinine 2.2 H (0.7-1.2) mg/dL Glucose 162 H (65-100) mg/dL Calcium 8.3 L (8.4-10.2) mg/dL AST 14 (5-40) units/L ALT 16 (7-56) units/L Alkaline Phosphatase 199 H (35-129) units/L Total Protein 4.5 L (6.3-8.2) g/dL Albumin 1.7 L (3.9-5) g/dL Calcium panel 09/08/17 Range/Units 04:05 Calcium 8.3 L (8.4-10.2) mg/dL Phosphorus 5.20 H D (2.5-4.5) mg/dL Albumin 1.7 L (3.9-5) g/dL Pituitary panel 09/08/17 Range/Units 04:05 Sodium 132 L (137-145) mmol/L Potassium 4.0 (3.6-5.0) mmol/L Chloride 92.1 L (98-107) mmol/L Carbon Dioxide 22 (22-30) mmol/L BUN 82 H (7-17) mg/dL Creatinine 2.2 H (0.7-1.2) mg/dL Glucose 162 H (65-100) mg/dL Calcium 8.3 L (8.4-10.2) mg/dL Adrenal panel 09/08/17 Range/Units 04:05 Sodium 132 L (137-145) mmol/L Potassium 4.0 (3.6-5.0) mmol/L Chloride 92.1 L (98-107) mmol/L Carbon Dioxide 22 (22-30) mmol/L BUN 82 H (7-17) mg/dL Creatinine 2.2 H (0.7-1.2) mg/dL Glucose 162 H (65-100) mg/dL Calcium 8.3 L (8.4-10.2) mg/dL Total Bilirubin 1.00 (0.1-1.2) mg/dL AST 14 (5-40) units/L ALT 16 (7-56) units/L Alkaline Phosphatase 199 H (35-129) units/L Total Protein 4.5 L (6.3-8.2) g/dL Albumin 1.7 L (3.9-5) g/dL - Imaging Abdominal x-ray: report reviewed, image reviewed
--- NOTE | 2017-09-08 19:08 | Progress Note ---
Assessment and Plan - Patient Problems (1) Leukocytosis Current Visit: Yes Status: Acute Qualifiers: Leukocytosis type: L Plan to address problem: See notes above. make sure that PD access is clean also. see notes. Probably infection from the infected PD catheter. improving. back up again. up/down continue to monitor. it continuos to rise. (2) Anemia Current Visit: Yes Status: Acute Qualifiers: Anemia type: A Iron deficiency anemia type: I Vitamin B12 deficiency anemia type: V Folate deficiency anemia type: F Bone marrow failure anemia type: B Hemolytic anemia type: H Other causes of anemia: O Chronic kidney disease stage: C Plan to address problem: see notes , monitor labs,. see notes above. continue to monitor labs with you. blood transfusion. S/P replacement transfusion. fair. (3) Acute respiratory failure Current Visit: Yes Status: Acute Qualifiers: Respiratory failure complication: R Plan to address problem: follow pulm. Subjective Date of service: 09/08/17 Principal diagnosis: septic shock Interval history: Patient seen today/examined, labs reviewed, case d/w she, and family.complaints of abdominal pain. Patient resting in bed in the ICU, post vascular procedure. labs reviewed, Reactive thrombocytosis, anemia of CD, leukocytosis from infection vs inflamatory process. Patient seen/examined, in bed in the ICU, on the vent post surgery.Labs reviewed , notes reviewed. will continue to monitor labs/patient with you. Replacement transfusion, if /when indicated. patient seen/examined, SBP75, on pressors., lethargic, on the vent, labs reviewed, wbc 39,000 Patient seen/examined, case reviewed, d/w her sister at the bed side. Patient seen/examined, labs reviewed, notes reviewed. severe septic shock from infected PD catheter The high wbc is all infection related. H?H low, and may get replacement transfusion with the next HD. Prognosis remain quite poor. Patient seen/examined, extubated, now on V Mask. labs reviewed. patient seen/examined, resting in bed, still some what lethargic . labs reviewed. Patient seen/examined, resting in bed., some difficulty with breathing./ lethargic. patient seen/examined, resting in bed, looked much better labs reviewed, and fair over all. Patient seen/examined, resting in bed, labs reviewed, case d/w her. Patient seen/examined, resting in bed on BIPAP., labs reviewed. patient seen/examined, resting in bed, on Bipap.labs reviewed, fairly stable. Patient seen today, resting in bed, labs reviewed, H/H low, and transfusion already ordered. Patient seen/examined, resting in bed, transferred back to the unit, due to resp failure. She is now on venting mask. had blood replacement done. Patient seen/examined in the ICU.labs reviewed. patient intubated this am. patient resting in bed.no new issues. Patient seen/examined in the ICU, on vent,Not readily responsive. patient seen, resting in bed, no new cbc ready.will order for today. Patient seen, resting in vent, labs reviewed.notes reviewed also. patient seen/examined, resting on vent, had HD yesterday, and today., labs reviewed. Patient seen, resting in bed, labs reviewed.fairly stable labs, except the wbc. Patient seen/examined, rtesting in bed on the vent.Labs reviewed, wbc still elevated, Hgb dropped slightly. Patient seen/examined, labs reviewed, hgb 7.3, if 7.0 or less, will replace .unless otherwise indicated. Objective - Constitutional Vitals: Vital Signs - 12hr 09/08/17 09/08/17 09/08/17 07:15 07:30 07:45 Temperature Pulse Rate 99 H 99 H 98 H Pulse Rate [ From Monitor] Pulse Rate [ Throughout] Respiratory 19 20 15 Rate Respiratory Rate [ Throughout] Blood Pressure 106/51 110/52 103/61 O2 Sat by Pulse 100 100 100 Oximetry 09/08/17 09/08/17 09/08/17 08:00 08:15 08:30 Temperature 97.7 F Pulse Rate 97 H 97 H 96 H Pulse Rate [ 97 H From Monitor] Pulse Rate [ Throughout] Respiratory 20 19 20 Rate Respiratory Rate [ Throughout] Blood Pressure 109/55 99/50 101/52 O2 Sat by Pulse 100 100 100 Oximetry 09/08/17 09/08/17 09/08/17 08:46 09:00 09:09 Temperature Pulse Rate 98 H 97 H Pulse Rate [ From Monitor] Pulse Rate [ 99 H Throughout] Respiratory 20 20 Rate Respiratory 20 Rate [ Throughout] Blood Pressure 100/53 111/50 O2 Sat by Pulse 100 100 Oximetry 09/08/17 09/08/17 09/08/17 09:16 09:19 09:21 Temperature Pulse Rate 100 H 99 H Pulse Rate [ From Monitor] Pulse Rate [ 98 H Throughout] Respiratory 20 Rate Respiratory 20 Rate [ Throughout] Blood Pressure 101/35 111/50 O2 Sat by Pulse 100 100 Oximetry 09/08/17 09/08/17 09/08/17 09:30 09:45 10:00 Temperature Pulse Rate 98 H 99 H 97 H Pulse Rate [ From Monitor] Pulse Rate [ Throughout] Respiratory 20 20 20 Rate Respiratory Rate [ Throughout] Blood Pressure 103/44 105/51 108/48 O2 Sat by Pulse 100 100 100 Oximetry 09/08/17 09/08/17 09/08/17 10:15 10:30 10:45 Temperature Pulse Rate 98 H 96 H 96 H Pulse Rate [ From Monitor] Pulse Rate [ Throughout] Respiratory 20 20 14 Rate Respiratory Rate [ Throughout] Blood Pressure 100/81 92/54 92/53 O2 Sat by Pulse 100 100 100 Oximetry 09/08/17 09/08/17 09/08/17 11:00 11:15 11:30 Temperature Pulse Rate 96 H 93 H 97 H Pulse Rate [ From Monitor] Pulse Rate [ Throughout] Respiratory 20 20 18 Rate Respiratory Rate [ Throughout] Blood Pressure 92/53 98/50 88/52 O2 Sat by Pulse 100 100 100 Oximetry 09/08/17 09/08/17 09/08/17 11:46 12:00 12:13 Temperature 98.8 F Pulse Rate 93 H 93 H 94 H Pulse Rate [ From Monitor] Pulse Rate [ Throughout] Respiratory 20 20 Rate Respiratory Rate [ Throughout] Blood Pressure 100/51 102/51 102/51 O2 Sat by Pulse 100 100 100 Oximetry 09/08/17 09/08/17 09/08/17 12:15 12:30 12:45 Temperature Pulse Rate 92 H 94 H 91 H Pulse Rate [ From Monitor] Pulse Rate [ Throughout] Respiratory 20 20 20 Rate Respiratory Rate [ Throughout] Blood Pressure 82/48 103/48 105/49 O2 Sat by Pulse 100 100 100 Oximetry 09/08/17 09/08/17 09/08/17 13:00 13:15 13:30 Temperature Pulse Rate 91 H 92 H 92 H Pulse Rate [ From Monitor] Pulse Rate [ Throughout] Respiratory 19 20 20 Rate Respiratory Rate [ Throughout] Blood Pressure 104/51 96/49 96/48 O2 Sat by Pulse 100 100 100 Oximetry 09/08/17 09/08/17 09/08/17 13:45 14:00 14:15 Temperature Pulse Rate 90 90 89 Pulse Rate [ From Monitor] Pulse Rate [ Throughout] Respiratory 20 20 20 Rate Respiratory Rate [ Throughout] Blood Pressure 102/50 104/49 95/49 O2 Sat by Pulse 100 100 100 Oximetry 09/08/17 09/08/17 09/08/17 14:21 14:29 14:30 Temperature Pulse Rate 89 Pulse Rate [ From Monitor] Pulse Rate [ 90 87 Throughout] Respiratory 20 Rate Respiratory 20 20 Rate [ Throughout] Blood Pressure 98/50 O2 Sat by Pulse 100 Oximetry 09/08/17 09/08/17 09/08/17 14:45 15:00 15:15 Temperature Pulse Rate 89 93 H 89 Pulse Rate [ From Monitor] Pulse Rate [ Throughout] Respiratory 20 20 19 Rate Respiratory Rate [ Throughout] Blood Pressure 99/47 95/46 99/49 O2 Sat by Pulse 100 100 100 Oximetry 09/08/17 09/08/17 09/08/17 15:30 15:45 16:00 Temperature 99.3 F Pulse Rate 89 90 Pulse Rate [ From Monitor] Pulse Rate [ Throughout] Respiratory 20 20 Rate Respiratory Rate [ Throughout] Blood Pressure 96/47 100/49 O2 Sat by Pulse 100 100 Oximetry 09/08/17 09/08/17 09/08/17 16:09 16:15 16:30 Temperature Pulse Rate 89 89 89 Pulse Rate [ From Monitor] Pulse Rate [ Throughout] Respiratory 20 20 20 Rate Respiratory Rate [ Throughout] Blood Pressure 100/49 101/49 O2 Sat by Pulse 100 100 100 Oximetry 09/08/17 09/08/17 09/08/17 16:45 17:00 17:13 Temperature Pulse Rate 90 91 H 91 H Pulse Rate [ From Monitor] Pulse Rate [ Throughout] Respiratory 20 20 Rate Respiratory Rate [ Throughout] Blood Pressure 99/48 94/44 94/44 O2 Sat by Pulse 100 100 100 Oximetry 09/08/17 09/08/17 09/08/17 17:15 17:30 17:45 Temperature Pulse Rate 89 89 90 Pulse Rate [ From Monitor] Pulse Rate [ Throughout] Respiratory 19 20 20 Rate Respiratory Rate [ Throughout] Blood Pressure 97/47 105/48 105/48 O2 Sat by Pulse 100 100 100 Oximetry 09/08/17 18:00 Temperature Pulse Rate 88 Pulse Rate [ From Monitor] Pulse Rate [ Throughout] Respiratory 16 Rate Respiratory Rate [ Throughout] Blood Pressure 104/50 O2 Sat by Pulse 100 Oximetry General appearance: Present: severe distress - EENT Eyes: PERRL, EOM intact ENT: clear oral mucosa Ears: bilateral: normal - Neck Neck: supple, normal ROM - Respiratory Respiratory: bilateral: diminished (on vent) - Breasts Breasts: deferred - Cardiovascular Rhythm: regular Heart Sounds: Present: S1 & S2. Absent: gallop, rub Extremities: pulses intact, No edema, normal color, Full ROM - Gastrointestinal General gastrointestinal: Present: soft, non-tender, non-distended, normal bowel sounds Rectal Exam: deferred - Genitourinary Female genitourinary: deferred - Integumentary Integumentary: clear, warm, dry - Musculoskeletal Musculoskeletal: 1, strength equal bilaterally - Neurologic Neurologic: moves all extremities - Labs CBC & Chem 7: 09/08/17 04:05 09/08/17 04:05 Labs: Abnormal lab results 09/07/17 09/07/17 09/07/17 Range/Units 11:48 17:07 18:21 WBC (4.5-11.0) K/mm3 RBC (3.65-5.03) M/mm3 Hgb (10.1-14.3) gm/dl Hct (30.3-42.9) % RDW (13.2-15.2) % Seg Neuts % (Manual) (40.0-70.0) % Lymphocytes % (Manual) (13.4-35.0) % Seg Neutrophils # Man (1.8-7.7) K/mm3 Lymphocytes # (Manual) (1.2-5.4) K/mm3 Monocytes # (Manual) (0.0-0.8) K/mm3 ABG pO2 (80.0-90.0) mm Hg ABG O2 Saturation (95.0-99.0) % ABG Base Excess (-2.0-3.0) mmol/L ABG Hemoglobin (12.0-16.0) gm/dl Sodium (137-145) mmol/L Chloride (98-107) mmol/L BUN (7-17) mg/dL Creatinine (0.7-1.2) mg/dL Glucose (65-100) mg/dL POC Glucose 200 H 181 H (70-105) Calcium (8.4-10.2) mg/dL Phosphorus (2.5-4.5) mg/dL Alkaline Phosphatase (35-129) units/L Total Protein (6.3-8.2) g/dL Albumin (3.9-5) g/dL Crossmatch See Detail 09/08/17 09/08/17 09/08/17 Range/Units 00:06 04:05 04:05 WBC 49.7 H* (4.5-11.0) K/mm3 RBC 2.58 L (3.65-5.03) M/mm3 Hgb 7.3 L (10.1-14.3) gm/dl Hct 22.7 L (30.3-42.9) % RDW 22.5 H (13.2-15.2) % Seg Neuts % (Manual) 90.5 H (40.0-70.0) % Lymphocytes % (Manual) 1.5 L (13.4-35.0) % Seg Neutrophils # Man 45.0 H (1.8-7.7) K/mm3 Lymphocytes # (Manual) 0.7 L (1.2-5.4) K/mm3 Monocytes # (Manual) 1.7 H (0.0-0.8) K/mm3 ABG pO2 (80.0-90.0) mm Hg ABG O2 Saturation (95.0-99.0) % ABG Base Excess (-2.0-3.0) mmol/L ABG Hemoglobin (12.0-16.0) gm/dl Sodium 132 L (137-145) mmol/L Chloride 92.1 L (98-107) mmol/L BUN 82 H (7-17) mg/dL Creatinine 2.2 H (0.7-1.2) mg/dL Glucose 162 H (65-100) mg/dL POC Glucose 168 H (70-105) Calcium 8.3 L (8.4-10.2) mg/dL Phosphorus 5.20 H D (2.5-4.5) mg/dL Alkaline Phosphatase 199 H (35-129) units/L Total Protein 4.5 L (6.3-8.2) g/dL Albumin 1.7 L (3.9-5) g/dL Crossmatch 09/08/17 09/08/17 Range/Units 04:41 09:21 WBC (4.5-11.0) K/mm3 RBC (3.65-5.03) M/mm3 Hgb (10.1-14.3) gm/dl Hct (30.3-42.9) % RDW (13.2-15.2) % Seg Neuts % (Manual) (40.0-70.0) % Lymphocytes % (Manual) (13.4-35.0) % Seg Neutrophils # Man (1.8-7.7) K/mm3 Lymphocytes # (Manual) (1.2-5.4) K/mm3 Monocytes # (Manual) (0.0-0.8) K/mm3 ABG pO2 218.5 H (80.0-90.0) mm Hg ABG O2 Saturation 99.3 H (95.0-99.0) % ABG Base Excess -3.5 L (-2.0-3.0) mmol/L ABG Hemoglobin 7.7 L (12.0-16.0) gm/dl Sodium (137-145) mmol/L Chloride (98-107) mmol/L BUN (7-17) mg/dL Creatinine (0.7-1.2) mg/dL Glucose (65-100) mg/dL POC Glucose 235 H (70-105) Calcium (8.4-10.2) mg/dL Phosphorus (2.5-4.5) mg/dL Alkaline Phosphatase (35-129) units/L Total Protein (6.3-8.2) g/dL Albumin (3.9-5) g/dL Crossmatch
[2017-09-08] MEDS ORDERED: TPN ADULT 1,800 ML IV SCH (20:00)
[2017-09-08] MEDS: ZYVOX 600MG/300ML 600 MG/300 ML BAG IV SCH (21:48)
[2017-09-09] MEDS: NOVOLOG SUB-Q SCH ×4 (00:27→18:15)
[2017-09-09] MEDS: PROTONIX 80 MG in NACL 0.9% 100 ML IV SCH (01:14)
[2017-09-09 04:16] LABS: Hematocrit 20.9 % (30.3-42.9); Hemoglobin 6.7 gm/dl (10.1-14.3); Mean Corpuscular HGB Conc 32 % (30-34); Mean Corpuscular Hemoglobin 28 pg (28-32); Mean Corpuscular Volume 88 fl (79-97); Platelet Count 194 K/mm3 (140-440); Red Blood Count 2.36 M/mm3 (3.65-5.03)
[2017-09-09 04:17] LABS: Red Cell Distribution Width 22.7 % (13.2-15.2); White Blood Count 33.5 K/mm3 (4.5-11.0)
[2017-09-09 06:14] LABS: ABG Base Excess -4.8 mmol/L (-2.0-3.0); ABG HCO3 20.9 mmol/L (20.0-26.0); ABG Oxygen Saturation 97.2 % (95.0-99.0); ABG PCO2 41.1 mm Hg; ABG PH 7.323 pH Units (7.350-7.450); ABG PO2 94.1 mm Hg (80.0-90.0)
[2017-09-09] MEDS: fentaNYL DRIP Premix 2,000 MCG/100 ML BAG IV SCH ×3 (06:33→17:32)
[2017-09-09] MEDS: DUONEB *Not for PRN Use IH SCH ×4 (07:00→19:55)
[2017-09-09 08:52] LABS: Calcium 8.3 mg/dL (8.4-10.2); Chloride 91.6 mmol/L (98-107); Magnesium 2.6 mg/dL (1.7-2.3); Phosphorous 5.9 mg/dL (2.5-4.5); Potassium 4.4 mmol/L (3.6-5.0)
--- NOTE | 2017-09-09 09:52 | Progress Note ---
Assessment and Plan - Patient Problems (1) ESRD (end stage renal disease) on dialysis Current Visit: Yes Status: Acute Plan to address problem: Continue HD on MWF and Isolated UF on TTS as tolerated. HD today. Patient is on TPN. (2) Hyperkalemia Current Visit: Yes Status: Acute Plan to address problem: Improved. (3) Anemia Current Visit: No Status: Chronic Qualifiers: Anemia type: due to chronic kidney disease Iron deficiency anemia type: I Vitamin B12 deficiency anemia type: V Folate deficiency anemia type: F Bone marrow failure anemia type: B Hemolytic anemia type: H Other causes of anemia: O Chronic kidney disease stage: on chronic dialysis Qualified Code(s ): N18.6 - End stage renal disease; D63.1 - Anemia in chronic kidney disease; Z99.2 - Dependence on renal dialysis Plan to address problem: S/p multiple units of PRBC. Epogen on dialysis days. (4) Hypotension Current Visit: Yes Status: Chronic Qualifiers: Hypotension type: H Trimester: T Plan to address problem: On Levophed. (5) Volume overload Current Visit: Yes Status: Acute Qualifiers: Hypervolemia type: H Plan to address problem: UF as tolerated. (6) Leukocytosis Current Visit: Yes Status: Acute Qualifiers: Leukocytosis type: unspecified Qualified Code(s): D72.829 - Elevated white blood cell count, unspecified Plan to address problem: Followed by ID and Heme-Onc. (7) Acute respiratory failure with hypoxemia Current Visit: Yes Status: Acute Plan to address problem: On the vent. (8) Sepsis Current Visit: Yes Status: Acute Qualifiers: Sepsis type: S Subjective Date of service: 09/09/17 Principal diagnosis: septic shock Interval history: Patient was seen and examined at the bedside. Patient remain intubated. Objective - Vital Signs Vital signs: Vital Signs - 12hr 09/08/17 09/08/17 09/08/17 22:01 22:15 22:30 Temperature Pulse Rate 90 96 H 93 H Pulse Rate [ Anterior Bilateral Throughout] Pulse Rate [ From Monitor] Pulse Rate [ Throughout] Respiratory 20 16 20 Rate Respiratory Rate [Anterior Bilateral Throughout] Respiratory Rate [ Throughout] Blood Pressure 103/81 103/81 97/49 O2 Sat by Pulse 100 100 100 Oximetry 09/08/17 09/08/17 09/08/17 22:45 23:00 23:15 Temperature Pulse Rate 95 H 94 H 93 H Pulse Rate [ Anterior Bilateral Throughout] Pulse Rate [ From Monitor] Pulse Rate [ Throughout] Respiratory 20 20 19 Rate Respiratory Rate [Anterior Bilateral Throughout] Respiratory Rate [ Throughout] Blood Pressure 97/49 100/53 100/53 O2 Sat by Pulse 100 100 100 Oximetry 09/08/17 09/08/17 09/08/17 23:25 23:30 23:33 Temperature 98.7 F Pulse Rate 96 H 90 Pulse Rate [ Anterior Bilateral Throughout] Pulse Rate [ From Monitor] Pulse Rate [ Throughout] Respiratory 19 20 Rate Respiratory Rate [Anterior Bilateral Throughout] Respiratory Rate [ Throughout] Blood Pressure 100/53 104/52 O2 Sat by Pulse 100 100 Oximetry 09/08/17 09/09/17 09/09/17 23:45 00:00 00:15 Temperature Pulse Rate 93 H 90 91 H Pulse Rate [ Anterior Bilateral Throughout] Pulse Rate [ From Monitor] Pulse Rate [ Throughout] Respiratory 20 21 20 Rate Respiratory Rate [Anterior Bilateral Throughout] Respiratory Rate [ Throughout] Blood Pressure 104/52 98/51 98/51 O2 Sat by Pulse 100 100 100 Oximetry 09/09/17 09/09/17 09/09/17 00:30 00:45 00:53 Temperature Pulse Rate 93 H 91 H 89 Pulse Rate [ Anterior Bilateral Throughout] Pulse Rate [ From Monitor] Pulse Rate [ Throughout] Respiratory 15 20 Rate Respiratory Rate [Anterior Bilateral Throughout] Respiratory Rate [ Throughout] Blood Pressure 95/48 98/51 95/48 O2 Sat by Pulse 100 100 100 Oximetry 09/09/17 09/09/17 09/09/17 01:00 01:15 01:31 Temperature Pulse Rate 90 89 90 Pulse Rate [ Anterior Bilateral Throughout] Pulse Rate [ From Monitor] Pulse Rate [ Throughout] Respiratory 20 20 15 Rate Respiratory Rate [Anterior Bilateral Throughout] Respiratory Rate [ Throughout] Blood Pressure 103/51 103/51 95/44 O2 Sat by Pulse 100 100 100 Oximetry 09/09/17 09/09/17 09/09/17 01:45 02:00 02:11 Temperature Pulse Rate 91 H 90 Pulse Rate [ 86 88 Anterior Bilateral Throughout] Pulse Rate [ From Monitor] Pulse Rate [ Throughout] Respiratory 20 20 Rate Respiratory 20 20 Rate [Anterior Bilateral Throughout] Respiratory Rate [ Throughout] Blood Pressure 95/44 97/47 O2 Sat by Pulse 100 100 Oximetry 1009/09/17 09/09/17 02:15 02:31 02:45 Temperature Pulse Rate 92 H 94 H 96 H Pulse Rate [ Anterior Bilateral Throughout] Pulse Rate [ From Monitor] Pulse Rate [ Throughout] Respiratory 20 15 15 Rate Respiratory Rate [Anterior Bilateral Throughout] Respiratory Rate [ Throughout] Blood Pressure 95/44 95/44 95/44 O2 Sat by Pulse 100 100 100 Oximetry 09/09/17 09/09/17 09/09/17 03:01 03:04 03:15 Temperature 97.7 F Pulse Rate 95 H 93 H Pulse Rate [ Anterior Bilateral Throughout] Pulse Rate [ From Monitor] Pulse Rate [ Throughout] Respiratory 20 19 Rate Respiratory Rate [Anterior Bilateral Throughout] Respiratory Rate [ Throughout] Blood Pressure 75/42 75/42 O2 Sat by Pulse 100 100 Oximetry 09/09/17 09/09/17 09/09/17 03:31 03:45 04:00 Temperature Pulse Rate 88 87 90 Pulse Rate [ Anterior Bilateral Throughout] Pulse Rate [ From Monitor] Pulse Rate [ Throughout] Respiratory 20 20 Rate Respiratory Rate [Anterior Bilateral Throughout] Respiratory Rate [ Throughout] Blood Pressure 80/62 75/42 84/66 O2 Sat by Pulse 100 100 100 Oximetry 09/09/17 09/09/17 09/09/17 04:01 04:15 04:31 Temperature Pulse Rate 92 H 89 94 H Pulse Rate [ Anterior Bilateral Throughout] Pulse Rate [ From Monitor] Pulse Rate [ Throughout] Respiratory 21 20 21 Rate Respiratory Rate [Anterior Bilateral Throughout] Respiratory Rate [ Throughout] Blood Pressure 84/66 84/66 90/60 O2 Sat by Pulse 100 100 100 Oximetry 09/09/17 09/09/17 09/09/17 04:45 05:01 05:15 Temperature Pulse Rate 92 H 92 H 90 Pulse Rate [ Anterior Bilateral Throughout] Pulse Rate [ From Monitor] Pulse Rate [ Throughout] Respiratory 20 20 20 Rate Respiratory Rate [Anterior Bilateral Throughout] Respiratory Rate [ Throughout] Blood Pressure 90/60 115/98 115/98 O2 Sat by Pulse 100 100 100 Oximetry 09/09/17 09/09/17 09/09/17 05:31 05:45 06:01 Temperature Pulse Rate 92 H 92 H 94 H Pulse Rate [ Anterior Bilateral Throughout] Pulse Rate [ From Monitor] Pulse Rate [ Throughout] Respiratory 15 19 22 Rate Respiratory Rate [Anterior Bilateral Throughout] Respiratory Rate [ Throughout] Blood Pressure 99/53 99/53 94/55 O2 Sat by Pulse 100 100 99 Oximetry 09/09/17 09/09/17 09/09/17 06:15 06:30 06:45 Temperature Pulse Rate 92 H 93 H 96 H Pulse Rate [ Anterior Bilateral Throughout] Pulse Rate [ From Monitor] Pulse Rate [ Throughout] Respiratory 20 20 21 Rate Respiratory Rate [Anterior Bilateral Throughout] Respiratory Rate [ Throughout] Blood Pressure 94/55 94/53 94/55 O2 Sat by Pulse 100 100 100 Oximetry 09/09/17 09/09/17 09/09/17 07:01 07:15 07:31 Temperature Pulse Rate 90 92 H 90 Pulse Rate [ Anterior Bilateral Throughout] Pulse Rate [ From Monitor] Pulse Rate [ Throughout] Respiratory 20 21 20 Rate Respiratory Rate [Anterior Bilateral Throughout] Respiratory Rate [ Throughout] Blood Pressure 111/57 111/57 119/51 O2 Sat by Pulse 100 100 100 Oximetry 09/09/17 09/09/17 09/09/17 07:45 07:58 08:00 Temperature 98.7 F Pulse Rate 90 90 89 Pulse Rate [ Anterior Bilateral Throughout] Pulse Rate [ 92 H From Monitor] Pulse Rate [ Throughout] Respiratory 20 19 Rate Respiratory Rate [Anterior Bilateral Throughout] Respiratory Rate [ Throughout] Blood Pressure 119/51 109/80 116/69 O2 Sat by Pulse 100 100 100 Oximetry 09/09/17 09/09/17 09/09/17 08:02 08:11 08:15 Temperature Pulse Rate 91 H Pulse Rate [ Anterior Bilateral Throughout] Pulse Rate [ From Monitor] Pulse Rate [ 90 91 H Throughout] Respiratory 20 Rate Respiratory Rate [Anterior Bilateral Throughout] Respiratory 20 20 Rate [ Throughout] Blood Pressure 116/69 O2 Sat by Pulse 100 Oximetry 09/09/17 09/09/17 09/09/17 08:31 08:45 09:01 Temperature Pulse Rate 91 H 89 90 Pulse Rate [ Anterior Bilateral Throughout] Pulse Rate [ From Monitor] Pulse Rate [ Throughout] Respiratory 20 19 18 Rate Respiratory Rate [Anterior Bilateral Throughout] Respiratory Rate [ Throughout] Blood Pressure 107/69 107/69 110/51 O2 Sat by Pulse 100 100 100 Oximetry 09/09/17 09:15 Temperature Pulse Rate 87 Pulse Rate [ Anterior Bilateral Throughout] Pulse Rate [ From Monitor] Pulse Rate [ Throughout] Respiratory 20 Rate Respiratory Rate [Anterior Bilateral Throughout] Respiratory Rate [ Throughout] Blood Pressure 110/51 O2 Sat by Pulse 100 Oximetry - General Appearance General appearance: well-developed, appears stated age, obese, sedated on ventilator (FiO2 40%), intubated, other (right Ij temp catheter) EENT: ATNC, PERRL Neck: supple Respiratory: Present: Clear to Ascultation Cardiology: regular, S1S2, no murmurs Gastrointestinal: normoactive bowel sounds, obese, other (PEG tube and dressing noted) Integumentary: no rash Neurologic: other (opens eyes) Musculoskeletal: other (2+ edema of extremities) - Lab 09/09/17 03:37 09/09/17 03:37 Most recent lab results ABG pH 7.323 pH Units (7.350-7.450) L 09/09/17 Unknown ABG pCO2 41.1 mm Hg 09/09/17 Unknown ABG pO2 94.1 mm Hg (80.0-90.0) H 09/09/17 Unknown ABG HCO3 20.9 mmol/L (20.0-26.0) 09/09/17 Unknown ABG O2 Saturation 97.2 % (95.0-99.0) 09/09/17 Unknown Calcium 8.3 mg/dL (8.4-10.2) L 09/09/17 03:37 Phosphorus 5.90 mg/dL (2.5-4.5) H 09/09/17 03:37 Magnesium 2.60 mg/dL (1.7-2.3) H 09/09/17 03:37
[2017-09-09] MEDS ORDERED: MERREM 1,000 MG in NACL 0.9% 100 ML IV SCH (10:00)
[2017-09-09] MEDS: DIFLUCAN 200 MG/100 ML BAG IV SCH (10:25)
[2017-09-09] MEDS: ZYVOX 600MG/300ML 600 MG/300 ML BAG IV SCH ×2 (10:25→21:53)
[2017-09-09] MEDS: LEVOPHED 8 MG in NACL 0.9% 250ML 242 ML IV SCH ×2 (10:26→22:02)
--- NOTE | 2017-09-09 10:32 | Progress Note ---
Assessment and Plan Assessment: 1) Sepsis with septic shock: still levophed requirements, leukocytosis better today; new source ? GI bleed . Repeat CT no abscess no collection. -CRP= 34 -->30 -->19-->0.1 ->2.8 -procalcitonin=1.3 -->7.6 -->3.9 2) Bowel obstruction / suspect ?gastric perforation ? peritonitis -S/P Exlap, G-tube placement, EGD, abdominal washout and removal of PD -OR findings - bowel obstruction due to entanglement of PD cath, abscess cavity in LUQ and ? suspect perforation of unclear location 3) CA-UTI: chronic ivan exchanged every 4 weeks and ureteral stents in place which are exchanged every 6 months ? urine cultures still pending should r/o MDR bacteria 4) Paraplegia 5) ESRD on PD - no evidence of peritonitis, wbc count 2. 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 6) Recent pancreatitis 7) Penicillin allergy-has taken keflex w/o problems 8) Presumed Surgical wound infection / dehiscence ? 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 11) Sacral stage II 12) Anemia- severe- Hg 6.7 today Plan: -GI med eval in view of low Hg and recent melena -Hem consult in view of persistently elevated WBC of unclear source -Surgery to repeat methylene blue test -continue zyvox and fluconazole day 7 of 10 -continue meropenem 2 of 7 -monitor leukocytosis -trach totay -wound care Thank you Dr De Leon for your consultation, will follow up with you. Ramya Lang MD Infectious Diseases Specialist [facility] ([facility] M [phone] O [phone] Subjective Date of service: 09/09/17 Principal diagnosis: septic shock Interval history: Pt remains intubated on the vent on levophed at 7, on TPN, fentanyl, no fever. 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 Gtube. drain Extremities: + peripheral edema + leg ulcer no drainage Skin: right groin old fem line wound no erythema, no drainage Psych: sedated. Neuro: sedated Lines: right IJ vas cath / Right IJ Nair 08/16 - Constitutional Vitals: Vital Signs Temp Pulse Resp BP Pulse Ox 98.7 F 87 20 110/51 100 09/09/17 08:00 09/09/17 09:15 09/09/17 09:15 09/09/17 09:15 09/09/17 09:15 Temperature -Last 24 Hours Temperature 98.7 F Temperature 97.7 F Temperature 98.7 F Temperature 97.9 F Temperature 99.3 F Temperature 98.8 F - Labs CBC & Chem 7: 09/09/17 03:37 09/09/17 03:37 Labs: Abnormal lab results 09/06/17 09/08/17 09/09/17 Range/Units 09:57 17:38 00:24 WBC (4.5-11.0) K/mm3 RBC (3.65-5.03) M/mm3 Hgb (10.1-14.3) gm/dl Hct (30.3-42.9) % RDW (13.2-15.2) % ABG pH (7.350-7.450) pH Units ABG pO2 (80.0-90.0) mm Hg ABG Base Excess (-2.0-3.0) mmol/L ABG Hemoglobin (12.0-16.0) gm/dl Oxyhemoglobin (95.0-99.0) % Sodium (137-145) mmol/L Chloride (98-107) mmol/L Carbon Dioxide (22-30) mmol/L BUN (7-17) mg/dL Creatinine (0.7-1.2) mg/dL Glucose (65-100) mg/dL POC Glucose 194 H 182 H (70-105) Calcium (8.4-10.2) mg/dL Phosphorus (2.5-4.5) mg/dL Magnesium (1.7-2.3) mg/dL Miscellaneous Test Flexitest 1 H 09/09/17 09/09/17 09/09/17 Range/Units 03:37 03:37 05:29 WBC 33.5 H (4.5-11.0) K/mm3 RBC 2.36 L (3.65-5.03) M/mm3 Hgb 6.7 L (10.1-14.3) gm/dl Hct 20.9 L (30.3-42.9) % RDW 22.7 H (13.2-15.2) % ABG pH (7.350-7.450) pH Units ABG pO2 (80.0-90.0) mm Hg ABG Base Excess (-2.0-3.0) mmol/L ABG Hemoglobin (12.0-16.0) gm/dl Oxyhemoglobin (95.0-99.0) % Sodium 132 L (137-145) mmol/L Chloride 91.6 L (98-107) mmol/L Carbon Dioxide 21 L (22-30) mmol/L BUN 101 H (7-17) mg/dL Creatinine 2.6 H (0.7-1.2) mg/dL Glucose 156 H (65-100) mg/dL POC Glucose 168 H (70-105) Calcium 8.3 L (8.4-10.2) mg/dL Phosphorus 5.90 H (2.5-4.5) mg/dL Magnesium 2.60 H (1.7-2.3) mg/dL Miscellaneous Test 09/09/17 Range/Units Unknown WBC (4.5-11.0) K/mm3 RBC (3.65-5.03) M/mm3 Hgb (10.1-14.3) gm/dl Hct (30.3-42.9) % RDW (13.2-15.2) % ABG pH 7.323 L (7.350-7.450) pH Units ABG pO2 94.1 H (80.0-90.0) mm Hg ABG Base Excess -4.8 L (-2.0-3.0) mmol/L ABG Hemoglobin 8.0 L (12.0-16.0) gm/dl Oxyhemoglobin 94.9 L (95.0-99.0) % Sodium (137-145) mmol/L Chloride (98-107) mmol/L Carbon Dioxide (22-30) mmol/L BUN (7-17) mg/dL Creatinine (0.7-1.2) mg/dL Glucose (65-100) mg/dL POC Glucose (70-105) Calcium (8.4-10.2) mg/dL Phosphorus (2.5-4.5) mg/dL Magnesium (1.7-2.3) mg/dL Miscellaneous Test
--- NOTE | 2017-09-09 10:35 | Gastroenterology Progress Note ---
Assessment and Plan 1. GI bleed -HGB 6.7-transfusion of PRBCs pending -continue to monitor H/H and transfuse as needed -nursing reports a large maroon BM on Saturday after oral contrast given that decreased in amount through Saturday - bleeding has now subsided with no signs of active GI bleeding x past 2 days-NG with non-bloody drainage and PEG drainage is bilious -pt is s/p ex lap, abdominal wash out and abdominal wall closure after wound dehiscence 2 weeks s/p ex lap for gastric perforation and sbo-MERVIN noted with dark red bloody drainage and midline incision with serosanguineous drainage -source of decreasing HGB does not appear to be GI in nature-etiology possibly due to combination of post surgical site bleeding and ESRD -due to pt's current medical conditions, she would not be a candidate for colonoscopy unless overt bleeding develops and emergently necessary -will d/c PPI drip and place back on daily dose -continue supportive care -will s/o and f/u at your request Subjective Date of service: 09/09/17 Principal diagnosis: rectal bleeding Interval history: Patient intubated, sedated, and requiring levophed gtt. No active signs of bleeding x 2 days per nursing. Objective - Constitutional Vitals: Temp Pulse Resp BP Pulse Ox 98.7 F 87 20 110/51 100 09/09/17 08:00 09/09/17 09:15 09/09/17 09:15 09/09/17 09:15 09/09/17 09:15 General appearance: no acute distress, obese - EENT ENT: other (NG with non-bloody gastric drainage) - Respiratory Respiratory: bilateral: diminished - Cardiovascular Rhythm: regular Heart Sounds: Present: S1 & S2 - Extremities Extremity abnormal: edema - Gastrointestinal General gastrointestinal: Present: soft, normal bowel sounds, other (midline wound with dressing draining serosanguinous drainage, MERVIN with dark red bloody drainage, PEG to gravity with bilious drainage) - Neurologic Neurological: other (sedated ) - Labs CBC & Chem 7: 09/09/17 03:37 09/09/17 03:37 Labs: Laboratory Results - last 24 hr 09/06/17 09/08/17 09/09/17 09:57 17:38 00:24 WBC RBC Hgb Hct MCV MCH MCHC RDW Plt Count ABG pH ABG pCO2 ABG pO2 ABG HCO3 ABG O2 Saturation ABG O2 Content ABG Base Excess ABG Hemoglobin ABG Carboxyhemoglobin ABG Methemoglobin Oxyhemoglobin FiO2 Sodium Potassium Chloride Carbon Dioxide Anion Gap BUN Creatinine Estimated GFR BUN/Creatinine Ratio Glucose POC Glucose 194 H 182 H Calcium Phosphorus Magnesium Miscellaneous Test Flexitest 1 H 09/09/17 09/09/17 09/09/17 03:37 03:37 05:29 WBC 33.5 H RBC 2.36 L Hgb 6.7 L Hct 20.9 L MCV 88 MCH 28 MCHC 32 RDW 22.7 H Plt Count 194 ABG pH ABG pCO2 ABG pO2 ABG HCO3 ABG O2 Saturation ABG O2 Content ABG Base Excess ABG Hemoglobin ABG Carboxyhemoglobin ABG Methemoglobin Oxyhemoglobin FiO2 Sodium 132 L Potassium 4.4 Chloride 91.6 L Carbon Dioxide 21 L Anion Gap 24 BUN 101 H Creatinine 2.6 H Estimated GFR 23 BUN/Creatinine Ratio 39 Glucose 156 H POC Glucose 168 H Calcium 8.3 L Phosphorus 5.90 H Magnesium 2.60 H Miscellaneous Test 09/09/17 Unknown WBC RBC Hgb Hct MCV MCH MCHC RDW Plt Count ABG pH 7.323 L ABG pCO2 41.1 ABG pO2 94.1 H ABG HCO3 20.9 ABG O2 Saturation 97.2 ABG O2 Content 10.9 ABG Base Excess -4.8 L ABG Hemoglobin 8.0 L ABG Carboxyhemoglobin 2.0 ABG Methemoglobin 0.3 Oxyhemoglobin 94.9 L FiO2 30 Sodium Potassium Chloride Carbon Dioxide Anion Gap BUN Creatinine Estimated GFR BUN/Creatinine Ratio Glucose POC Glucose Calcium Phosphorus Magnesium Miscellaneous Test
[2017-09-09] MEDS: LEVEMIR SUB-Q SCH (10:44)
--- NOTE | 2017-09-09 12:32 | Anesthesia Day of Surgery ---
Anesthesia Day of Surgery - Day of Surgery Patient Examined: Yes Patient H&P Reviewed: Yes Patient is NPO: Yes
--- NOTE | 2017-09-09 12:33 | Anesthesia Consultation ---
Anesthesia Consult and Med Hx Date of service: 09/09/17 - Pulmonary Exam CTA: Yes - Cardiac Exam Cardiac Exam: RRR Anesthetic Concerns: Unable to perform oral exam - Pre-Operative Health Status ASA Pre-Surgery Classification: ASA4 Proposed Anesthetic Plan: MAC - Pulmonary Hx Smoking: No Hx Asthma: No Hx Respiratory Symptoms: No SOB: No COPD: Yes (Hx of Acute Respiratory Failure) Hx Pneumonia: No Hx Sleep Apnea: Yes - Cardiovascular System Hx Hypertension: Yes (hypotension recently) Hx Coronary Artery Disease: No Hx Heart Attack/AMI: No Hx Angina: No Hx Percutaneous Transluminal Coronary Angioplasty (PTCA): No Hx Cardia Arrhythmia: No Hx Pacemaker: No Hx Internal Defibrillator: No Hx Valvular Heart Disease: No Hx Heart Murmur: No Hx Peripheral Vascular Disease: No - Central Nervous System Hx Neuromuscular Disorder: Yes (wheelchair bound, cannot move right leg, hypersensitivity in right hand) Hx Seizures: No CVA: No Hx Back Pain: Yes (C4-6 disc disease s/p ACDF and posterior fusion ) Hx Psychiatric Problems: No - Gastrointestinal Hx Ulcer: Yes Hx Gastroesophageal Reflux Disease: No - Endocrine Hx Renal Disease: Yes (MWF dialysis) Hx End Stage Renal Disease: Yes Hx Cirrhosis: No Hx Liver Disease: No Hx Insulin Dependent Diabetes: No Hx Non-Insulin Dependent Diabetes: No Hx Thyroid Disease: No - Hematic Hx Anemia: Yes Hx Sickle Cell Disease: No - Other Systems Hx Alcohol Use: Yes (wine 2 x week) Hx Substance Use: No Hx Cancer: No Hx Obesity: Yes (MORBID, BMI 51) - Additional Comments Anesthesia Medical History Comments: Sepsis. Echo this admission was essentially normal. Spoke with family and they are aware of severity of situation and that surgery is life saving but also life threatening.
[2017-09-09] MEDS: MERREM 1,000 MG in NACL 0.9% 100 ML IV SCH (12:51)
--- NOTE | 2017-09-09 13:32 | Operative Report ---
Operative Report Operative Report: Date of procedure: 09/09/2017 Pre-operative diagnosis: Respiratory failure with vent dependence Post-operative diagnosis: Same Procedure name(s): Percutaneous tracheostomy Surgeon: Alba Harris MD [place] Operator: Maurice Avitia M.D. Anesthesia: General, 1% lidocaine EBL: Minimal Complications: None Instrument Count: correct Indications: This is a 62-year-old female with a history of prolonged vent dependence respiratory failure. The patient met the criteria for tracheostomy insertion. The risks and benefits of discussed the family until all questions answered. She is substernally set up for the procedure. Findings: Nonsignificant Procedure: We reviewed informed consent. The patient was then positioned in a semi-follow position the neck slightly extended. After infiltration of local anesthetic. Minimal small incision proximally one centimeter in size vertically 2 cm above the sternal notch in the neck. At this time anesthesia was prompted to partially withdraw the endotracheal tube to 16 cm at the teeth. Using a introducer needle on the syringe on gentle suction, we cannulated the trachea which was verified by a release of the suction. We placed a guidewire through the introducer needle and removed the needle we assured that we had not entrapped the endotracheal tube. We then dilated the tract using a 14 Azeri skin dilator. This was substituted for a stiff catheter and Blue Rhino dilator combination. A 8 Shiley endotracheal tube was then placed over the stiff catheter and guidewire into the trachea. We removed the dilator catheter and guidewire and inserted the inner cannula. We then verified end tidal CO2. We secured the wings of the tracheostomy tube to the skin using a 2-0 Prolene. A tracheostomy collar was then applied and attached to the tracheostomy tube. The patient tolerated the procedure well. She was maintained on a ventilator in no apparent distress.
--- NOTE | 2017-09-09 14:16 | Progress Note ---
Assessment and Plan 62 y/o female originally admitted with hypotension, now back to ICU secondary to worsening hypotension, concern for sepsis, with acute respiratory failure post-op from ex-lap for abdominal distention and possible ileus, now back from OR after worsening respiratory failure, requiring re-intubation and wash out of abdomen 1. Now that trached, next step would be LTACH, However, suggest that LTACH be firmly aware of abdominal issues and have surgery there that is willing to follow. 2. HD per renal 3. Continue PSV trials as tolerated. Rest on rate while on HD 4. Abx therapy as previously ordered per ID. CT is stable of abdomen 5. Wean levo for MAPS >60, have not been able to come off as she drops immediately. 6. Steroids stopped 7. Spoke with ID and surgery, I have ordered GI consultation given concern for GI Bleed outside of anything related to surgery. They have seen patient. She is not a candidate for endoscopy at this time. Overall prognosis is guarded to poor CCT 31 Subjective Date of service: 09/09/17 Principal diagnosis: rectal bleeding Interval history: No acute events. Had trach placed this morning. Tolerated well. Objective Vital Signs - 12hr 09/09/17 09/09/17 09/09/17 02:15 02:31 02:45 Temperature Pulse Rate 92 H 94 H 96 H Pulse Rate [ From Monitor] Pulse Rate [ Throughout] Respiratory 20 15 15 Rate Respiratory Rate [ Throughout] Blood Pressure 95/44 95/44 95/44 O2 Sat by Pulse 100 100 100 Oximetry 09/09/17 09/09/17 09/09/17 03:01 03:04 03:15 Temperature 97.7 F Pulse Rate 95 H 93 H Pulse Rate [ From Monitor] Pulse Rate [ Throughout] Respiratory 20 19 Rate Respiratory Rate [ Throughout] Blood Pressure 75/42 75/42 O2 Sat by Pulse 100 100 Oximetry 09/09/17 09/09/17 09/09/17 03:31 03:45 04:00 Temperature Pulse Rate 88 87 90 Pulse Rate [ From Monitor] Pulse Rate [ Throughout] Respiratory 20 20 Rate Respiratory Rate [ Throughout] Blood Pressure 80/62 75/42 84/66 O2 Sat by Pulse 100 100 100 Oximetry 09/09/17 09/09/17 09/09/17 04:01 04:15 04:31 Temperature Pulse Rate 92 H 89 94 H Pulse Rate [ From Monitor] Pulse Rate [ Throughout] Respiratory 21 20 21 Rate Respiratory Rate [ Throughout] Blood Pressure 84/66 84/66 90/60 O2 Sat by Pulse 100 100 100 Oximetry 09/09/17 09/09/17 09/09/17 04:45 05:01 05:15 Temperature Pulse Rate 92 H 92 H 90 Pulse Rate [ From Monitor] Pulse Rate [ Throughout] Respiratory 20 20 20 Rate Respiratory Rate [ Throughout] Blood Pressure 90/60 115/98 115/98 O2 Sat by Pulse 100 100 100 Oximetry 09/09/17 09/09/17 09/09/17 05:31 05:45 06:01 Temperature Pulse Rate 92 H 92 H 94 H Pulse Rate [ From Monitor] Pulse Rate [ Throughout] Respiratory 15 19 22 Rate Respiratory Rate [ Throughout] Blood Pressure 99/53 99/53 94/55 O2 Sat by Pulse 100 100 99 Oximetry 09/09/17 09/09/17 09/09/17 06:15 06:30 06:45 Temperature Pulse Rate 92 H 93 H 96 H Pulse Rate [ From Monitor] Pulse Rate [ Throughout] Respiratory 20 20 21 Rate Respiratory Rate [ Throughout] Blood Pressure 94/55 94/53 94/55 O2 Sat by Pulse 100 100 100 Oximetry 09/09/17 09/09/17 09/09/17 07:01 07:15 07:31 Temperature Pulse Rate 90 92 H 90 Pulse Rate [ From Monitor] Pulse Rate [ Throughout] Respiratory 20 21 20 Rate Respiratory Rate [ Throughout] Blood Pressure 111/57 111/57 119/51 O2 Sat by Pulse 100 100 100 Oximetry 09/09/17 09/09/17 09/09/17 07:45 07:58 08:00 Temperature 98.7 F Pulse Rate 90 90 89 Pulse Rate [ 92 H From Monitor] Pulse Rate [ Throughout] Respiratory 20 19 Rate Respiratory Rate [ Throughout] Blood Pressure 119/51 109/80 116/69 O2 Sat by Pulse 100 100 100 Oximetry 09/09/17 09/09/17 09/09/17 08:02 08:11 08:15 Temperature Pulse Rate 91 H Pulse Rate [ From Monitor] Pulse Rate [ 90 91 H Throughout] Respiratory 20 Rate Respiratory 20 20 Rate [ Throughout] Blood Pressure 116/69 O2 Sat by Pulse 100 Oximetry 09/09/17 09/09/17 09/09/17 08:31 08:45 09:01 Temperature Pulse Rate 91 H 89 90 Pulse Rate [ From Monitor] Pulse Rate [ Throughout] Respiratory 20 19 18 Rate Respiratory Rate [ Throughout] Blood Pressure 107/69 107/69 110/51 O2 Sat by Pulse 100 100 100 Oximetry 09/09/17 09/09/17 09/09/17 09:15 09:31 09:45 Temperature Pulse Rate 87 93 H 91 H Pulse Rate [ From Monitor] Pulse Rate [ Throughout] Respiratory 20 17 20 Rate Respiratory Rate [ Throughout] Blood Pressure 110/51 68/16 O2 Sat by Pulse 100 100 100 Oximetry 09/09/17 09/09/17 09/09/17 10:00 10:15 10:31 Temperature Pulse Rate 91 H 91 H 93 H Pulse Rate [ From Monitor] Pulse Rate [ Throughout] Respiratory 20 20 19 Rate Respiratory Rate [ Throughout] Blood Pressure 97/52 97/52 100/45 O2 Sat by Pulse 99 100 100 Oximetry 09/09/17 09/09/17 09/09/17 10:45 11:00 11:41 Temperature Pulse Rate 93 H 94 H 92 H Pulse Rate [ From Monitor] Pulse Rate [ Throughout] Respiratory 20 21 Rate Respiratory Rate [ Throughout] Blood Pressure 100/45 113/50 101/49 O2 Sat by Pulse 98 100 100 Oximetry 09/09/17 12:00 Temperature 98.6 F Pulse Rate Pulse Rate [ From Monitor] Pulse Rate [ Throughout] Respiratory Rate Respiratory Rate [ Throughout] Blood Pressure O2 Sat by Pulse Oximetry Constitutional: other (critically ill on vent, obese) Eyes: non-icteric ENT: oropharynx moist, other (NGT) Neck: supple, no lymphadenopathy Effort: mildly labored Ascultation: Bilateral: clear (anteriorly), diminished breath sounds, wheezes ( faint expiratory wheezes), rhonchi (occ), other (coarse BS bilaterally) Cardiovascular: regular rate and rhythm Gastrointestinal: absent bowel sounds, non-tender, other (abdominal incision with new dressing noted, obese) Integumentary: normal Extremities: no cyanosis, pink and warm, edema (3+ bilateral LE edema) Neurologic: non-focal exam, pupils equal and round, other (somnolent) Psychiatric: mood appropriate, affect normal CBC and BMP: 09/09/17 03:37 09/09/17 03:37 ABG, PT/INR, D-dimer: ABG POC ABG pH 7.335 (7.35-7.45) L 08/30/17 03:31 ABG pH 7.323 pH Units (7.350-7.450) L 09/09/17 Unknown POC ABG pCO2 44.1 (35-45) 08/30/17 03:31 ABG pCO2 41.1 mm Hg 09/09/17 Unknown POC ABG pO2 117 (80-105) H 08/30/17 03:31 ABG pO2 94.1 mm Hg (80.0-90.0) H 09/09/17 Unknown POC ABG HCO3 23.5 08/30/17 03:31 POC ABG Total CO2 25 08/30/17 03:31 POC ABG O2 Sat 98 08/30/17 03:31 ABG O2 Saturation 97.2 % (95.0-99.0) 09/09/17 Unknown PT/INR, D-dimer PT 15.1 Sec. (12.2-14.9) H 08/31/17 18:15 INR 1.13 (0.87-1.13) 08/31/17 18:15 Abnormal lab findings: Abnormal Labs 08/08/17 08/08/17 08/09/17 21:23 21:31 11:19 WBC 15.7 H RBC 2.93 L Hgb 8.7 L Hct 26.8 L MCV MCH RDW 19.2 H Plt Count Lymph % (Auto) [place] % (Auto) [place] # Seg Neutrophils % Seg Neuts % (Manual) Lymphocytes % (Manual) Monocytes % (Manual) Nucleated RBC % Seg Neutrophils # Seg Neutrophils # Man Lymphocytes # (Manual) Monocytes # (Manual) Eosinophils # (Manual) Basophils # (Manual) PT INR POC ABG pH 7.490 H ABG pH POC ABG pCO2 POC ABG pO2 122 H ABG pO2 ABG O2 Saturation ABG Base Excess ABG Hemoglobin Oxyhemoglobin Sodium Potassium Chloride Carbon Dioxide BUN Creatinine Glucose POC Glucose Calcium Phosphorus Magnesium AST ALT Alkaline Phosphatase Troponin T 0.133 H* C-Reactive Protein Total Protein Albumin Triglycerides HDL Cholesterol 26 L Miscellaneous Test Crossmatch 08/09/17 08/10/17 08/10/17 13:25 04:45 04:45 WBC 15.5 H RBC 2.97 L Hgb 8.9 L Hct 27.0 L MCV MCH RDW 19.2 H Plt Count Lymph % (Auto) [place] % (Auto) [place] # Seg Neutrophils % Seg Neuts % (Manual) 73.0 H Lymphocytes % (Manual) 7.0 L Monocytes % (Manual) 14.0 H Nucleated RBC % Seg Neutrophils # Seg Neutrophils # Man 11.3 H Lymphocytes # (Manual) 1.1 L Monocytes # (Manual) 2.2 H Eosinophils # (Manual) Basophils # (Manual) 0.2 H PT INR POC ABG pH ABG pH POC ABG pCO2 POC ABG pO2 ABG pO2 ABG O2 Saturation ABG Base Excess ABG Hemoglobin Oxyhemoglobin Sodium Potassium 3.3 L Chloride 97.3 L Carbon Dioxide 21 L BUN 23 H Creatinine 6.5 H Glucose POC Glucose Calcium 7.3 L Phosphorus Magnesium AST ALT Alkaline Phosphatase 138 H Troponin T 0.132 H* C-Reactive Protein Total Protein 4.8 L Albumin 1.4 L Triglycerides HDL Cholesterol Miscellaneous Test Crossmatch 08/11/17 08/11/17 08/12/17 04:00 04:00 05:50 WBC 19.3 H RBC 3.10 L Hgb 9.5 L Hct 28.2 L MCV MCH RDW 19.2 H Plt Count 463 H Lymph % (Auto) 7.5 L [place] % (Auto) 14.6 H [place] # 2.8 H Seg Neutrophils % 77.0 H Seg Neuts % (Manual) Lymphocytes % (Manual) Monocytes % (Manual) Nucleated RBC % Seg Neutrophils # 14.8 H Seg Neutrophils # Man Lymphocytes # (Manual) Monocytes # (Manual) Eosinophils # (Manual) Basophils # (Manual) PT INR POC ABG pH ABG pH POC ABG pCO2 POC ABG pO2 ABG pO2 ABG O2 Saturation ABG Base Excess ABG Hemoglobin Oxyhemoglobin Sodium 136 L 136 L Potassium 3.3 L Chloride 96.3 L 96.6 L Carbon Dioxide BUN 26 H 26 H Creatinine 6.4 H 6.2 H Glucose 135 H 133 H POC Glucose Calcium 8.2 L Phosphorus Magnesium 1.30 L AST ALT Alkaline Phosphatase 139 H Troponin T C-Reactive Protein Total Protein 5.5 L Albumin 1.7 L Triglycerides HDL Cholesterol Miscellaneous Test Crossmatch 08/12/17 08/12/17 08/12/17 05:50 05:50 05:50 WBC 20.1 H RBC 3.06 L Hgb 9.3 L Hct 27.9 L MCV MCH RDW 18.4 H Plt Count 471 H Lymph % (Auto) [place] % (Auto) [place] # Seg Neutrophils % Seg Neuts % (Manual) 85.0 H Lymphocytes % (Manual) 8.0 L Monocytes % (Manual) Nucleated RBC % Seg Neutrophils # Seg Neutrophils # Man 17.1 H Lymphocytes # (Manual) Monocytes # (Manual) 1.0 H Eosinophils # (Manual) Basophils # (Manual) PT 15.2 H INR 1.14 H POC ABG pH ABG pH POC ABG pCO2 POC ABG pO2 ABG pO2 ABG O2 Saturation ABG Base Excess ABG Hemoglobin Oxyhemoglobin Sodium Potassium Chloride Carbon Dioxide BUN Creatinine Glucose POC Glucose Calcium Phosphorus Magnesium AST ALT Alkaline Phosphatase Troponin T C-Reactive Protein 28.90 H Total Protein Albumin Triglycerides HDL Cholesterol Miscellaneous Test Crossmatch 08/12/17 08/13/17 08/13/17 16:23 06:14 06:14 WBC 21.8 H RBC 3.11 L Hgb 9.4 L Hct 28.2 L MCV MCH RDW 18.2 H Plt Count 492 H Lymph % (Auto) [place] % (Auto) [place] # Seg Neutrophils % Seg Neuts % (Manual) 73.0 H Lymphocytes % (Manual) 2.0 L Monocytes % (Manual) 15 H Nucleated RBC % Seg Neutrophils # Seg Neutrophils # Man 15.9 H Lymphocytes # (Manual) 0.4 L Monocytes # (Manual) 2.4 H Eosinophils # (Manual) Basophils # (Manual) PT INR POC ABG pH ABG pH POC ABG pCO2 POC ABG pO2 ABG pO2 ABG O2 Saturation ABG Base Excess ABG Hemoglobin Oxyhemoglobin Sodium Potassium Chloride 96.2 L Carbon Dioxide BUN 28 H Creatinine 5.6 H Glucose 114 H POC Glucose Calcium Phosphorus Magnesium AST ALT Alkaline Phosphatase Troponin T C-Reactive Protein 26.10 H Total Protein Albumin Triglycerides HDL Cholesterol Miscellaneous Test Crossmatch 08/13/17 08/14/17 08/14/17 16:39 04:00 04:00 WBC 22.1 H RBC 3.25 L Hgb 9.9 L Hct 29.5 L MCV MCH RDW 17.9 H Plt Count 525 H Lymph % (Auto) [place] % (Auto) [place] # Seg Neutrophils % Seg Neuts % (Manual) 74.0 H Lymphocytes % (Manual) 8.0 L Monocytes % (Manual) 12.0 H Nucleated RBC % Seg Neutrophils # Seg Neutrophils # Man 16.4 H Lymphocytes # (Manual) Monocytes # (Manual) 2.7 H Eosinophils # (Manual) Basophils # (Manual) PT INR POC ABG pH ABG pH POC ABG pCO2 POC ABG pO2 ABG pO2 ABG O2 Saturation ABG Base Excess ABG Hemoglobin Oxyhemoglobin Sodium 134 L Potassium 3.3 L Chloride 93.3 L Carbon Dioxide BUN 27 H Creatinine 6.0 H Glucose 152 H POC Glucose 151 H Calcium Phosphorus Magnesium AST ALT Alkaline Phosphatase Troponin T C-Reactive Protein Total Protein Albumin Triglycerides HDL Cholesterol Miscellaneous Test Crossmatch 08/15/17 08/16/17 08/16/17 09:10 09:50 09:50 WBC 31.1 H RBC 3.21 L Hgb 9.6 L Hct 29.3 L MCV MCH RDW 18.1 H Plt Count 642 H Lymph % (Auto) [place] % (Auto) [place] # Seg Neutrophils % Seg Neuts % (Manual) 74.0 H Lymphocytes % (Manual) 4.0 L Monocytes % (Manual) 9.0 H Nucleated RBC % Seg Neutrophils # Seg Neutrophils # Man 23.0 H Lymphocytes # (Manual) Monocytes # (Manual) 2.8 H Eosinophils # (Manual) Basophils # (Manual) PT INR POC ABG pH ABG pH POC ABG pCO2 POC ABG pO2 ABG pO2 ABG O2 Saturation ABG Base Excess ABG Hemoglobin Oxyhemoglobin Sodium 136 L 136 L Potassium 3.5 L Chloride 97.6 L 94.9 L Carbon Dioxide BUN 27 H 28 H Creatinine 5.6 H 5.5 H Glucose 117 H 103 H POC Glucose Calcium Phosphorus Magnesium AST ALT Alkaline Phosphatase 137 H Troponin T C-Reactive Protein Total Protein 5.4 L Albumin 1.5 L Triglycerides HDL Cholesterol Miscellaneous Test Crossmatch 08/16/17 08/17/17 08/17/17 09:50 05:00 06:26 WBC RBC Hgb Hct MCV MCH RDW Plt Count Lymph % (Auto) [place] % (Auto) [place] # Seg Neutrophils % Seg Neuts % (Manual) Lymphocytes % (Manual) Monocytes % (Manual) Nucleated RBC % Seg Neutrophils # Seg Neutrophils # Man Lymphocytes # (Manual) Monocytes # (Manual) Eosinophils # (Manual) Basophils # (Manual) PT INR POC ABG pH ABG pH POC ABG pCO2 POC ABG pO2 ABG pO2 ABG O2 Saturation ABG Base Excess ABG Hemoglobin Oxyhemoglobin Sodium 134 L Potassium 3.0 L Chloride 97.8 L Carbon Dioxide BUN 30 H Creatinine 5.3 H Glucose 147 H POC Glucose 165 H Calcium 7.5 L Phosphorus Magnesium AST ALT Alkaline Phosphatase Troponin T C-Reactive Protein 32.30 H Total Protein Albumin Triglycerides HDL Cholesterol Miscellaneous Test Crossmatch 08/17/17 08/17/17 08/17/17 10:56 11:20 11:20 WBC 39.1 H RBC 3.10 L Hgb 9.2 L Hct 28.6 L MCV MCH RDW 18.3 H Plt Count 580 H Lymph % (Auto) [place] % (Auto) [place] # Seg Neutrophils % Seg Neuts % (Manual) 89.5 H Lymphocytes % (Manual) 3.5 L Monocytes % (Manual) Nucleated RBC % Seg Neutrophils # Seg Neutrophils # Man 35.0 H Lymphocytes # (Manual) Monocytes # (Manual) 2.5 H Eosinophils # (Manual) Basophils # (Manual) 0.2 H PT INR POC ABG pH 7.464 H ABG pH POC ABG pCO2 34.1 L POC ABG pO2 75 L ABG pO2 ABG O2 Saturation ABG Base Excess ABG Hemoglobin Oxyhemoglobin Sodium Potassium Chloride Carbon Dioxide BUN Creatinine Glucose POC Glucose Calcium Phosphorus Magnesium AST ALT Alkaline Phosphatase Troponin T C-Reactive Protein Total Protein Albumin Triglycerides HDL Cholesterol Miscellaneous Test Flexitest 1 H Crossmatch 08/17/17 08/17/17 08/17/17 11:20 16:57 20:20 WBC 34.4 H RBC 2.81 L Hgb 8.4 L Hct 26.0 L MCV MCH RDW 17.8 H Plt Count 455 H Lymph % (Auto) [place] % (Auto) [place] # Seg Neutrophils % Seg Neuts % (Manual) Lymphocytes % (Manual) 3.5 L Monocytes % (Manual) Nucleated RBC % 5.0 H Seg Neutrophils # Seg Neutrophils # Man 16.5 H Lymphocytes # (Manual) Monocytes # (Manual) 1.0 H Eosinophils # (Manual) Basophils # (Manual) PT 16.0 H INR 1.29 H POC ABG pH ABG pH POC ABG pCO2 POC ABG pO2 ABG pO2 ABG O2 Saturation ABG Base Excess ABG Hemoglobin Oxyhemoglobin Sodium 135 L Potassium 2.9 L* Chloride Carbon Dioxide 20 L BUN 32 H Creatinine 5.4 H Glucose 129 H POC Glucose Calcium 7.5 L Phosphorus Magnesium 1.50 L AST 85 H ALT Alkaline Phosphatase Troponin T C-Reactive Protein Total Protein 4.0 L D Albumin 1.6 L Triglycerides HDL Cholesterol Miscellaneous Test Crossmatch 08/17/17 08/17/17 08/18/17 20:54 23:47 04:26 WBC RBC Hgb Hct MCV MCH RDW Plt Count Lymph % (Auto) [place] % (Auto) [place] # Seg Neutrophils % Seg Neuts % (Manual) Lymphocytes % (Manual) Monocytes % (Manual) Nucleated RBC % Seg Neutrophils # Seg Neutrophils # Man Lymphocytes # (Manual) Monocytes # (Manual) Eosinophils # (Manual) Basophils # (Manual) PT INR POC ABG pH 7.557 H ABG pH POC ABG pCO2 23.1 L 29.0 L POC ABG pO2 187 H 148 H ABG pO2 ABG O2 Saturation ABG Base Excess ABG Hemoglobin Oxyhemoglobin Sodium Potassium Chloride Carbon Dioxide BUN Creatinine Glucose POC Glucose 188 H Calcium Phosphorus Magnesium AST ALT Alkaline Phosphatase Troponin T C-Reactive Protein Total Protein Albumin Triglycerides HDL Cholesterol Miscellaneous Test Crossmatch 08/18/17 08/18/17 08/18/17 05:51 11:44 17:07 WBC RBC Hgb Hct MCV MCH RDW Plt Count Lymph % (Auto) [place] % (Auto) [place] # Seg Neutrophils % Seg Neuts % (Manual) Lymphocytes % (Manual) Monocytes % (Manual) Nucleated RBC % Seg Neutrophils # Seg Neutrophils # Man Lymphocytes # (Manual) Monocytes # (Manual) Eosinophils # (Manual) Basophils # (Manual) PT INR POC ABG pH ABG pH POC ABG pCO2 POC ABG pO2 ABG pO2 ABG O2 Saturation ABG Base Excess ABG Hemoglobin Oxyhemoglobin Sodium Potassium Chloride Carbon Dioxide BUN Creatinine Glucose POC Glucose 202 H 195 H 182 H Calcium Phosphorus Magnesium AST ALT Alkaline Phosphatase Troponin T C-Reactive Protein Total Protein Albumin Triglycerides HDL Cholesterol Miscellaneous Test Crossmatch 08/18/17 08/18/17 08/18/17 23:45 Unknown Unknown WBC 39.0 H RBC 2.84 L Hgb 8.4 L Hct 26.5 L MCV MCH RDW 18.0 H Plt Count 476 H Lymph % (Auto) [place] % (Auto) [place] # Seg Neutrophils % Seg Neuts % (Manual) Lymphocytes % (Manual) 7.0 L Monocytes % (Manual) 10.0 H Nucleated RBC % 3.0 H Seg Neutrophils # Seg Neutrophils # Man 15.6 H Lymphocytes # (Manual) Monocytes # (Manual) 3.9 H Eosinophils # (Manual) Basophils # (Manual) PT INR POC ABG pH ABG pH POC ABG pCO2 POC ABG pO2 ABG pO2 ABG O2 Saturation ABG Base Excess ABG Hemoglobin Oxyhemoglobin Sodium Potassium Chloride Carbon Dioxide 19 L BUN 34 H Creatinine 5.6 H Glucose 201 H POC Glucose 163 H Calcium 7.8 L Phosphorus 1.90 L D Magnesium 1.60 L AST ALT Alkaline Phosphatase Troponin T C-Reactive Protein Total Protein Albumin Triglycerides HDL Cholesterol Miscellaneous Test Crossmatch 08/19/17 08/19/17 08/19/17 04:18 05:00 05:00 WBC 40.0 H RBC 2.46 L Hgb 7.3 L Hct 22.6 L MCV MCH RDW 18.1 H Plt Count Lymph % (Auto) [place] % (Auto) [place] # Seg Neutrophils % Seg Neuts % (Manual) Lymphocytes % (Manual) 8.0 L Monocytes % (Manual) Nucleated RBC % 2.0 H Seg Neutrophils # Seg Neutrophils # Man 16.4 H Lymphocytes # (Manual) Monocytes # (Manual) 1.2 H Eosinophils # (Manual) 1.2 H Basophils # (Manual) PT INR POC ABG pH 7.463 H ABG pH POC ABG pCO2 29.7 L POC ABG pO2 134 H ABG pO2 ABG O2 Saturation ABG Base Excess ABG Hemoglobin Oxyhemoglobin Sodium Potassium 5.1 H D Chloride Carbon Dioxide 20 L BUN 40 H Creatinine 5.3 H Glucose 128 H POC Glucose Calcium 7.8 L Phosphorus 1.90 L Magnesium AST ALT Alkaline Phosphatase Troponin T C-Reactive Protein Total Protein Albumin Triglycerides HDL Cholesterol Miscellaneous Test Crossmatch 08/19/17 08/19/17 08/19/17 05:19 07:37 09:52 WBC 45.0 H* RBC 2.50 L Hgb 7.5 L Hct 24.5 L MCV 98 H MCH RDW 18.4 H Plt Count Lymph % (Auto) [place] % (Auto) [place] # Seg Neutrophils % Seg Neuts % (Manual) 81.5 H Lymphocytes % (Manual) 4.0 L Monocytes % (Manual) Nucleated RBC % 1.0 H Seg Neutrophils # Seg Neutrophils # Man 36.7 H Lymphocytes # (Manual) Monocytes # (Manual) Eosinophils # (Manual) Basophils # (Manual) PT INR POC ABG pH ABG pH POC ABG pCO2 POC ABG pO2 ABG pO2 ABG O2 Saturation ABG Base Excess ABG Hemoglobin Oxyhemoglobin Sodium Potassium Chloride Carbon Dioxide BUN Creatinine Glucose POC Glucose 142 H Calcium Phosphorus Magnesium AST ALT Alkaline Phosphatase Troponin T C-Reactive Protein 34.20 H Total Protein Albumin Triglycerides HDL Cholesterol Miscellaneous Test Crossmatch 08/19/17 08/19/17 08/20/17 11:16 18:12 00:35 WBC RBC Hgb Hct MCV MCH RDW Plt Count Lymph % (Auto) [place] % (Auto) [place] # Seg Neutrophils % Seg Neuts % (Manual) Lymphocytes % (Manual) Monocytes % (Manual) Nucleated RBC % Seg Neutrophils # Seg Neutrophils # Man Lymphocytes # (Manual) Monocytes # (Manual) Eosinophils # (Manual) Basophils # (Manual) PT INR POC ABG pH ABG pH POC ABG pCO2 POC ABG pO2 ABG pO2 ABG O2 Saturation ABG Base Excess ABG Hemoglobin Oxyhemoglobin Sodium Potassium Chloride Carbon Dioxide BUN Creatinine Glucose POC Glucose 143 H 137 H 164 H Calcium Phosphorus Magnesium AST ALT Alkaline Phosphatase Troponin T C-Reactive Protein Total Protein Albumin Triglycerides HDL Cholesterol Miscellaneous Test Crossmatch 08/20/17 08/20/17 08/20/17 03:20 03:20 04:00 WBC 48.0 H* RBC 2.55 L Hgb 7.6 L Hct 23.4 L MCV MCH RDW 18.4 H Plt Count Lymph % (Auto) [place] % (Auto) [place] # Seg Neutrophils % Seg Neuts % (Manual) 90.0 H Lymphocytes % (Manual) 3.0 L Monocytes % (Manual) Nucleated RBC % Seg Neutrophils # Seg Neutrophils # Man 43.2 H Lymphocytes # (Manual) Monocytes # (Manual) 1.4 H Eosinophils # (Manual) 0.5 H Basophils # (Manual) PT INR POC ABG pH 7.499 H ABG pH POC ABG pCO2 29.1 L POC ABG pO2 ABG pO2 ABG O2 Saturation ABG Base Excess ABG Hemoglobin Oxyhemoglobin Sodium 135 L Potassium Chloride Carbon Dioxide BUN 28 H Creatinine 4.0 H Glucose 140 H POC Glucose Calcium 8.0 L Phosphorus 1.70 L Magnesium 1.60 L AST ALT Alkaline Phosphatase Troponin T C-Reactive Protein Total Protein Albumin Triglycerides HDL Cholesterol Miscellaneous Test Crossmatch 08/20/17 08/20/1708/20/17 05:02 12:05 13:12 WBC RBC Hgb Hct MCV MCH RDW Plt Count Lymph % (Auto) [place] % (Auto) [place] # Seg Neutrophils % Seg Neuts % (Manual) Lymphocytes % (Manual) Monocytes % (Manual) Nucleated RBC % Seg Neutrophils # Seg Neutrophils # Man Lymphocytes # (Manual) Monocytes # (Manual) Eosinophils # (Manual) Basophils # (Manual) PT INR POC ABG pH 7.537 H ABG pH POC ABG pCO2 27.9 L POC ABG pO2 79 L ABG pO2 ABG O2 Saturation ABG Base Excess ABG Hemoglobin Oxyhemoglobin Sodium Potassium Chloride Carbon Dioxide BUN Creatinine Glucose POC Glucose 158 H 203 H Calcium Phosphorus Magnesium AST ALT Alkaline Phosphatase Troponin T C-Reactive Protein Total Protein Albumin Triglycerides HDL Cholesterol Miscellaneous Test Crossmatch 08/20/17 08/21/17 08/21/17 17:13 00:47 03:14 WBC RBC Hgb Hct MCV MCH RDW Plt Count Lymph % (Auto) [place] % (Auto) [place] # Seg Neutrophils % Seg Neuts % (Manual) Lymphocytes % (Manual) Monocytes % (Manual) Nucleated RBC % Seg Neutrophils # Seg Neutrophils # Man Lymphocytes # (Manual) Monocytes # (Manual) Eosinophils # (Manual) Basophils # (Manual) PT INR POC ABG pH 7.481 H ABG pH POC ABG pCO2 29.6 L POC ABG pO2 ABG pO2 ABG O2 Saturation ABG Base Excess ABG Hemoglobin Oxyhemoglobin Sodium Potassium Chloride Carbon Dioxide BUN Creatinine Glucose POC Glucose 188 H 109 H Calcium Phosphorus Magnesium AST ALT Alkaline Phosphatase Troponin T C-Reactive Protein Total Protein Albumin Triglycerides HDL Cholesterol Miscellaneous Test Crossmatch 08/21/17 08/21/17 08/21/17 05:05 06:50 06:50 WBC 44.7 H* RBC 2.41 L Hgb 7.1 L Hct 22.1 L MCV MCH RDW 18.3 H Plt Count Lymph % (Auto) [place] % (Auto) [place] # Seg Neutrophils % Seg Neuts % (Manual) 89.0 H Lymphocytes % (Manual) 0 L Monocytes % (Manual) Nucleated RBC % 1.0 H Seg Neutrophils # Seg Neutrophils # Man 39.8 H Lymphocytes # (Manual) 0.0 L Monocytes # (Manual) 1.3 H Eosinophils # (Manual) Basophils # (Manual) PT INR POC ABG pH ABG pH POC ABG pCO2 POC ABG pO2 ABG pO2 ABG O2 Saturation ABG Base Excess ABG Hemoglobin Oxyhemoglobin Sodium 135 L Potassium Chloride Carbon Dioxide BUN 39 H Creatinine 4.4 H Glucose 147 H POC Glucose 166 H Calcium 8.1 L Phosphorus Magnesium AST ALT < 5 L Alkaline Phosphatase 164 H Troponin T C-Reactive Protein Total Protein 4.7 L Albumin 1.4 L Triglycerides HDL Cholesterol Miscellaneous Test Crossmatch 08/21/17 08/21/17 08/21/17 08:00 12:21 17:02 WBC RBC Hgb Hct MCV MCH RDW Plt Count Lymph % (Auto) [place] % (Auto) [place] # Seg Neutrophils % Seg Neuts % (Manual) Lymphocytes % (Manual) Monocytes % (Manual) Nucleated RBC % Seg Neutrophils # Seg Neutrophils # Man Lymphocytes # (Manual) Monocytes # (Manual) Eosinophils # (Manual) Basophils # (Manual) PT INR POC ABG pH ABG pH POC ABG pCO2 POC ABG pO2 ABG pO2 ABG O2 Saturation ABG Base Excess ABG Hemoglobin Oxyhemoglobin Sodium Potassium Chloride Carbon Dioxide BUN Creatinine Glucose POC Glucose 147 H 135 H Calcium Phosphorus Magnesium AST ALT Alkaline Phosphatase Troponin T C-Reactive Protein Total Protein Albumin Triglycerides HDL Cholesterol Miscellaneous Test Crossmatch See Detail 08/21/17 08/22/17 08/22/17 23:38 03:40 03:40 WBC 42.5 H* RBC 2.88 L Hgb 8.5 L Hct 26.3 L MCV MCH RDW 17.9 H Plt Count Lymph % (Auto) [place] % (Auto) [place] # Seg Neutrophils % Seg Neuts % (Manual) Lymphocytes % (Manual) 5.0 L Monocytes % (Manual) Nucleated RBC % Seg Neutrophils # Seg Neutrophils # Man 19.6 H Lymphocytes # (Manual) Monocytes # (Manual) 2.6 H Eosinophils # (Manual) Basophils # (Manual) PT INR POC ABG pH ABG pH POC ABG pCO2 POC ABG pO2 ABG pO2 ABG O2 Saturation ABG Base Excess ABG Hemoglobin Oxyhemoglobin Sodium Potassium 3.3 L D Chloride Carbon Dioxide BUN 27 H Creatinine 2.9 H Glucose 144 H POC Glucose 251 H Calcium 8.0 L Phosphorus 2.40 L Magnesium AST ALT Alkaline Phosphatase Troponin T C-Reactive Protein Total Protein Albumin Triglycerides HDL Cholesterol Miscellaneous Test Crossmatch 08/22/17 08/22/17 08/22/17 06:37 08:50 11:25 WBC RBC Hgb Hct MCV MCH RDW Plt Count Lymph % (Auto) [place] % (Auto) [place] # Seg Neutrophils % Seg Neuts % (Manual) Lymphocytes % (Manual) Monocytes % (Manual) Nucleated RBC % Seg Neutrophils # Seg Neutrophils # Man Lymphocytes # (Manual) Monocytes # (Manual) Eosinophils # (Manual) Basophils # (Manual) PT INR POC ABG pH ABG pH POC ABG pCO2 POC ABG pO2 ABG pO2 ABG O2 Saturation ABG Base Excess ABG Hemoglobin Oxyhemoglobin Sodium Potassium Chloride Carbon Dioxide BUN Creatinine Glucose POC Glucose 152 H 175 H Calcium Phosphorus Magnesium AST ALT Alkaline Phosphatase Troponin T C-Reactive Protein Total Protein Albumin Triglycerides HDL Cholesterol Miscellaneous Test Flexitest 1 H Crossmatch 08/22/17 08/22/17 08/22/17 16:25 17:56 23:03 WBC RBC Hgb Hct MCV MCH RDW Plt Count Lymph % (Auto) [place] % (Auto) [place] # Seg Neutrophils % Seg Neuts % (Manual) Lymphocytes % (Manual) Monocytes % (Manual) Nucleated RBC % Seg Neutrophils # Seg Neutrophils # Man Lymphocytes # (Manual) Monocytes # (Manual) Eosinophils # (Manual) Basophils # (Manual) PT INR POC ABG pH ABG pH POC ABG pCO2 POC ABG pO2 ABG pO2 ABG O2 Saturation ABG Base Excess ABG Hemoglobin Oxyhemoglobin Sodium Potassium Chloride Carbon Dioxide BUN Creatinine Glucose POC Glucose 232 H 192 H Calcium Phosphorus Magnesium AST ALT Alkaline Phosphatase Troponin T C-Reactive Protein 30.70 H Total Protein Albumin Triglycerides HDL Cholesterol Miscellaneous Test Crossmatch 08/23/17 08/23/17 08/23/17 05:36 08:50 12:14 WBC RBC Hgb Hct MCV MCH RDW Plt Count Lymph % (Auto) [place] % (Auto) [place] # Seg Neutrophils % Seg Neuts % (Manual) Lymphocytes % (Manual) Monocytes % (Manual) Nucleated RBC % Seg Neutrophils # Seg Neutrophils # Man Lymphocytes # (Manual) Monocytes # (Manual) Eosinophils # (Manual) Basophils # (Manual) PT INR POC ABG pH ABG pH POC ABG pCO2 POC ABG pO2 ABG pO2 ABG O2 Saturation ABG Base Excess ABG Hemoglobin Oxyhemoglobin Sodium Potassium Chloride 107.1 H Carbon Dioxide BUN 49 H Creatinine 3.3 H Glucose 172 H POC Glucose 206 H 238 H Calcium Phosphorus Magnesium 2.40 H AST ALT Alkaline Phosphatase Troponin T C-Reactive Protein Total Protein Albumin Triglycerides HDL Cholesterol Miscellaneous Test Crossmatch 08/23/17 08/23/17 08/24/17 17:21 23:13 04:00 WBC 34.2 H RBC 2.86 L Hgb 8.4 L Hct 25.9 L MCV MCH RDW 17.9 H Plt Count Lymph % (Auto) [place] % (Auto) [place] # Seg Neutrophils % Seg Neuts % (Manual) 85.0 H Lymphocytes % (Manual) 0.5 L Monocytes % (Manual) Nucleated RBC % 1.0 H Seg Neutrophils # Seg Neutrophils # Man 29.1 H Lymphocytes # (Manual) 0.2 L Monocytes # (Manual) 2.4 H Eosinophils # (Manual) Basophils # (Manual) PT INR POC ABG pH ABG pH POC ABG pCO2 POC ABG pO2 ABG pO2 ABG O2 Saturation ABG Base Excess ABG Hemoglobin Oxyhemoglobin Sodium Potassium Chloride Carbon Dioxide BUN Creatinine Glucose POC Glucose 226 H 183 H Calcium Phosphorus Magnesium AST ALT Alkaline Phosphatase Troponin T C-Reactive Protein Total Protein Albumin Triglycerides HDL Cholesterol Miscellaneous Test Crossmatch 08/24/17 08/24/17 08/24/17 05:06 09:30 12:04 WBC RBC Hgb Hct MCV MCH RDW Plt Count Lymph % (Auto) [place] % (Auto) [place] # Seg Neutrophils % Seg Neuts % (Manual) Lymphocytes % (Manual) Monocytes % (Manual) Nucleated RBC % Seg Neutrophils # Seg Neutrophils # Man Lymphocytes # (Manual) Monocytes # (Manual) Eosinophils # (Manual) Basophils # (Manual) PT INR POC ABG pH ABG pH POC ABG pCO2 POC ABG pO2 ABG pO2 ABG O2 Saturation ABG Base Excess ABG Hemoglobin Oxyhemoglobin Sodium Potassium Chloride Carbon Dioxide BUN 46 H Creatinine 2.5 H Glucose 176 H POC Glucose 201 H 181 H Calcium Phosphorus Magnesium AST ALT Alkaline Phosphatase Troponin T C-Reactive Protein Total Protein Albumin Triglycerides HDL Cholesterol Miscellaneous Test Crossmatch 08/24/17 08/24/17 08/25/17 18:04 23:05 05:05 WBC RBC Hgb Hct MCV MCH RDW Plt Count Lymph % (Auto) [place] % (Auto) [place] # Seg Neutrophils % Seg Neuts % (Manual) Lymphocytes % (Manual) Monocytes % (Manual) Nucleated RBC % Seg Neutrophils # Seg Neutrophils # Man Lymphocytes # (Manual) Monocytes # (Manual) Eosinophils # (Manual) Basophils # (Manual) PT INR POC ABG pH ABG pH POC ABG pCO2 POC ABG pO2 ABG pO2 ABG O2 Saturation ABG Base Excess ABG Hemoglobin Oxyhemoglobin Sodium Potassium Chloride Carbon Dioxide BUN Creatinine Glucose POC Glucose 189 H 175 H 190 H Calcium Phosphorus Magnesium AST ALT Alkaline Phosphatase Troponin T C-Reactive Protein Total Protein Albumin Triglycerides HDL Cholesterol Miscellaneous Test Crossmatch 08/25/17 08/25/17 08/26/17 07:02 11:53 05:30 WBC 33.5 H RBC 2.47 L Hgb 7.3 L Hct 23.0 L MCV MCH RDW 21.3 H Plt Count Lymph % (Auto) [place] % (Auto) [place] # Seg Neutrophils % Seg Neuts % (Manual) 92.0 H Lymphocytes % (Manual) 1.0 L Monocytes % (Manual) Nucleated RBC % Seg Neutrophils # Seg Neutrophils # Man 30.8 H Lymphocytes # (Manual) 0.3 L Monocytes # (Manual) Eosinophils # (Manual) Basophils # (Manual) PT INR POC ABG pH ABG pH POC ABG pCO2 POC ABG pO2 ABG pO2 ABG O2 Saturation ABG Base Excess ABG Hemoglobin Oxyhemoglobin Sodium Potassium Chloride Carbon Dioxide BUN 32 H Creatinine 5.0 H D Glucose 117 H POC Glucose 191 H Calcium 8.0 L Phosphorus Magnesium AST ALT Alkaline Phosphatase Troponin T C-Reactive Protein Total Protein Albumin Triglycerides HDL Cholesterol Miscellaneous Test Crossmatch 08/26/17 08/26/17 08/26/17 05:30 06:44 13:26 WBC RBC Hgb Hct MCV MCH RDW Plt Count Lymph % (Auto) [place] % (Auto) [place] # Seg Neutrophils % Seg Neuts % (Manual) Lymphocytes % (Manual) Monocytes % (Manual) Nucleated RBC % Seg Neutrophils # Seg Neutrophils # Man Lymphocytes # (Manual) Monocytes # (Manual) Eosinophils # (Manual) Basophils # (Manual) PT INR POC ABG pH ABG pH POC ABG pCO2 POC ABG pO2 ABG pO2 ABG O2 Saturation ABG Base Excess ABG Hemoglobin Oxyhemoglobin Sodium Potassium 5.2 H Chloride Carbon Dioxide BUN 80 H Creatinine 3.4 H Glucose 193 H POC Glucose 232 H 207 H Calcium 8.3 L Phosphorus 6.80 H D Magnesium 2.60 H AST 135 H ALT Alkaline Phosphatase 211 H Troponin T C-Reactive Protein Total Protein 4.8 L Albumin 2.0 L Triglycerides HDL Cholesterol Miscellaneous Test Crossmatch 08/27/17 08/27/17 08/27/17 01:08 06:20 06:20 WBC 35.0 H RBC 2.75 L Hgb 8.4 L Hct 25.1 L MCV MCH RDW 21.8 H Plt Count Lymph % (Auto) [place] % (Auto) [place] # Seg Neutrophils % Seg Neuts % (Manual) Lymphocytes % (Manual) 4.5 L Monocytes % (Manual) Nucleated RBC % Seg Neutrophils # Seg Neutrophils # Man 31.9 H Lymphocytes # (Manual) Monocytes # (Manual) 1.2 H Eosinophils # (Manual) Basophils # (Manual) PT INR POC ABG pH ABG pH POC ABG pCO2 POC ABG pO2 ABG pO2 ABG O2 Saturation ABG Base Excess ABG Hemoglobin Oxyhemoglobin Sodium Potassium Chloride Carbon Dioxide BUN 61 H Creatinine 2.6 H Glucose 184 H POC Glucose 146 H Calcium Phosphorus 4.90 H D Magnesium AST ALT Alkaline Phosphatase Troponin T C-Reactive Protein Total Protein Albumin Triglycerides HDL Cholesterol Miscellaneous Test Crossmatch 08/27/17 08/27/17 08/27/17 07:01 09:17 12:52 WBC RBC Hgb Hct MCV MCH RDW Plt Count Lymph % (Auto) [place] % (Auto) [place] # Seg Neutrophils % Seg Neuts % (Manual) Lymphocytes % (Manual) Monocytes % (Manual) Nucleated RBC % Seg Neutrophils # Seg Neutrophils # Man Lymphocytes # (Manual) Monocytes # (Manual) Eosinophils # (Manual) Basophils # (Manual) PT INR POC ABG pH ABG pH POC ABG pCO2 POC ABG pO2 ABG pO2 ABG O2 Saturation ABG Base Excess ABG Hemoglobin Oxyhemoglobin Sodium Potassium Chloride Carbon Dioxide BUN Creatinine Glucose POC Glucose 165 H 198 H 218 H Calcium Phosphorus Magnesium AST ALT Alkaline Phosphatase Troponin T C-Reactive Protein Total Protein Albumin Triglycerides HDL Cholesterol Miscellaneous Test Crossmatch 08/27/17 08/28/17 08/28/17 17:27 02:13 06:46 WBC RBC Hgb Hct MCV MCH RDW Plt Count Lymph % (Auto) [place] % (Auto) [place] # Seg Neutrophils % Seg Neuts % (Manual) Lymphocytes % (Manual) Monocytes % (Manual) Nucleated RBC % Seg Neutrophils # Seg Neutrophils # Man Lymphocytes # (Manual) Monocytes # (Manual) Eosinophils # (Manual) Basophils # (Manual) PT INR POC ABG pH ABG pH POC ABG pCO2 POC ABG pO2 ABG pO2 ABG O2 Saturation ABG Base Excess ABG Hemoglobin Oxyhemoglobin Sodium Potassium Chloride Carbon Dioxide BUN Creatinine Glucose POC Glucose 151 H 155 H 230 H Calcium Phosphorus Magnesium AST ALT Alkaline Phosphatase Troponin T C-Reactive Protein Total Protein Albumin Triglycerides HDL Cholesterol Miscellaneous Test Crossmatch 08/28/17 08/28/17 08/28/17 06:53 06:53 08:19 WBC 31.1 H RBC 2.26 L Hgb 6.8 L Hct 20.9 L MCV MCH RDW 21.7 H Plt Count Lymph % (Auto) [place] % (Auto) [place] # Seg Neutrophils % Seg Neuts % (Manual) 83.0 H Lymphocytes % (Manual) 4.0 L Monocytes % (Manual) Nucleated RBC % Seg Neutrophils # Seg Neutrophils # Man 25.8 H Lymphocytes # (Manual) Monocytes # (Manual) Eosinophils # (Manual) Basophils # (Manual) PT INR POC ABG pH ABG pH POC ABG pCO2 POC ABG pO2 ABG pO2 ABG O2 Saturation ABG Base Excess ABG Hemoglobin Oxyhemoglobin Sodium Potassium Chloride Carbon Dioxide BUN 81 H Creatinine 3.4 H Glucose 218 H POC Glucose 239 H Calcium Phosphorus 4.90 H Magnesium AST ALT Alkaline Phosphatase Troponin T C-Reactive Protein Total Protein Albumin Triglycerides HDL Cholesterol Miscellaneous Test Crossmatch 08/28/17 08/28/17 08/28/17 11:56 13:05 13:29 WBC RBC Hgb Hct MCV MCH RDW Plt Count Lymph % (Auto) [place] % (Auto) [place] # Seg Neutrophils % Seg Neuts % (Manual) Lymphocytes % (Manual) Monocytes % (Manual) Nucleated RBC % Seg Neutrophils # Seg Neutrophils # Man Lymphocytes # (Manual) Monocytes # (Manual) Eosinophils # (Manual) Basophils # (Manual) PT 16.7 H INR 1.29 H POC ABG pH ABG pH POC ABG pCO2 POC ABG pO2 338 H ABG pO2 ABG O2 Saturation ABG Base Excess ABG Hemoglobin Oxyhemoglobin Sodium Potassium Chloride Carbon Dioxide BUN Creatinine Glucose POC Glucose Calcium Phosphorus Magnesium AST ALT Alkaline Phosphatase Troponin T C-Reactive Protein Total Protein Albumin Triglycerides HDL Cholesterol Miscellaneous Test Crossmatch See Detail 08/28/17 08/28/17 08/29/17 16:22 19:20 04:24 WBC RBC Hgb Hct MCV MCH RDW Plt Count Lymph % (Auto) [place] % (Auto) [place] # Seg Neutrophils % Seg Neuts % (Manual) Lymphocytes % (Manual) Monocytes % (Manual) Nucleated RBC % Seg Neutrophils # Seg Neutrophils # Man Lymphocytes # (Manual) Monocytes # (Manual) Eosinophils # (Manual) Basophils # (Manual) PT INR POC ABG pH 7.469 H ABG pH POC ABG pCO2 POC ABG pO2 240 H ABG pO2 ABG O2 Saturation ABG Base Excess ABG Hemoglobin Oxyhemoglobin Sodium Potassium Chloride Carbon Dioxide BUN Creatinine Glucose POC Glucose 209 H 195 H Calcium Phosphorus Magnesium AST ALT Alkaline Phosphatase Troponin T C-Reactive Protein Total Protein Albumin Triglycerides HDL Cholesterol Miscellaneous Test Crossmatch 08/29/17 08/29/17 08/29/17 04:30 04:30 12:07 WBC 44.9 H* RBC Hgb Hct MCV MCH RDW 23.1 H Plt Count Lymph % (Auto) [place] % (Auto) [place] # Seg Neutrophils % Seg Neuts % (Manual) 38.0 L Lymphocytes % (Manual) 10.0 L Monocytes % (Manual) 10.0 H Nucleated RBC % 6.0 H Seg Neutrophils # Seg Neutrophils # Man 17.1 H Lymphocytes # (Manual) Monocytes # (Manual) 4.5 H Eosinophils # (Manual) Basophils # (Manual) PT INR POC ABG pH ABG pH POC ABG pCO2 POC ABG pO2 ABG pO2 ABG O2 Saturation ABG Base Excess ABG Hemoglobin Oxyhemoglobin Sodium Potassium Chloride Carbon Dioxide BUN 61 H Creatinine 2.4 H Glucose 226 H POC Glucose 200 H Calcium Phosphorus Magnesium AST ALT Alkaline Phosphatase Troponin T C-Reactive Protein Total Protein Albumin Triglycerides HDL Cholesterol Miscellaneous Test Crossmatch 08/29/17 08/29/17 08/29/17 12:30 12:30 17:23 WBC RBC Hgb Hct MCV MCH RDW Plt Count Lymph % (Auto) [place] % (Auto) [place] # Seg Neutrophils % Seg Neuts % (Manual) Lymphocytes % (Manual) Monocytes % (Manual) Nucleated RBC % Seg Neutrophils # Seg Neutrophils # Man Lymphocytes # (Manual) Monocytes # (Manual) Eosinophils # (Manual) Basophils # (Manual) PT INR POC ABG pH ABG pH POC ABG pCO2 POC ABG pO2 ABG pO2 ABG O2 Saturation ABG Base Excess ABG Hemoglobin Oxyhemoglobin Sodium Potassium Chloride Carbon Dioxide BUN Creatinine Glucose POC Glucose 270 H Calcium Phosphorus Magnesium AST ALT Alkaline Phosphatase Troponin T C-Reactive Protein 19.10 H Total Protein Albumin Triglycerides HDL Cholesterol Miscellaneous Test Flexitest 1 H Crossmatch 08/30/17 08/30/17 08/30/17 00:10 01:30 03:31 WBC RBC Hgb Hct MCV MCH RDW Plt Count Lymph % (Auto) [place] % (Auto) [place] # Seg Neutrophils % Seg Neuts % (Manual) Lymphocytes % (Manual) Monocytes % (Manual) Nucleated RBC % Seg Neutrophils # Seg Neutrophils # Man Lymphocytes # (Manual) Monocytes # (Manual) Eosinophils # (Manual) Basophils # (Manual) PT INR POC ABG pH 7.168 L 7.335 L ABG pH POC ABG pCO2 72.8 H POC ABG pO2 257 H 117 H ABG pO2 ABG O2 Saturation ABG Base Excess ABG Hemoglobin Oxyhemoglobin Sodium Potassium Chloride Carbon Dioxide BUN Creatinine Glucose POC Glucose 245 H Calcium Phosphorus Magnesium AST ALT Alkaline Phosphatase Troponin T C-Reactive Protein Total Protein Albumin Triglycerides HDL Cholesterol Miscellaneous Test Crossmatch 08/30/17 08/30/17 08/30/17 05:20 05:20 05:20 WBC 40.9 H* RBC 3.64 L Hgb Hct MCV MCH RDW 24.3 H Plt Count Lymph % (Auto) [place] % (Auto) [place] # Seg Neutrophils % Seg Neuts % (Manual) 80.0 H Lymphocytes % (Manual) 3.0 L Monocytes % (Manual) Nucleated RBC % 1.0 H Seg Neutrophils # Seg Neutrophils # Man 32.7 H Lymphocytes # (Manual) Monocytes # (Manual) Eosinophils # (Manual) Basophils # (Manual) PT INR POC ABG pH ABG pH POC ABG pCO2 POC ABG pO2 ABG pO2 ABG O2 Saturation ABG Base Excess ABG Hemoglobin Oxyhemoglobin Sodium Potassium Chloride Carbon Dioxide BUN 83 H Creatinine 2.9 H Glucose 334 H POC Glucose 309 H Calcium Phosphorus Magnesium AST ALT Alkaline Phosphatase Troponin T C-Reactive Protein Total Protein Albumin Triglycerides HDL Cholesterol Miscellaneous Test Crossmatch 08/30/17 08/30/17 08/31/17 12:18 17:36 00:17 WBC RBC Hgb Hct MCV MCH RDW Plt Count Lymph % (Auto) [place] % (Auto) [place] # Seg Neutrophils % Seg Neuts % (Manual) Lymphocytes % (Manual) Monocytes % (Manual) Nucleated RBC % Seg Neutrophils # Seg Neutrophils # Man Lymphocytes # (Manual) Monocytes # (Manual) Eosinophils # (Manual) Basophils # (Manual) PT INR POC ABG pH ABG pH POC ABG pCO2 POC ABG pO2 ABG pO2 ABG O2 Saturation ABG Base Excess ABG Hemoglobin Oxyhemoglobin Sodium Potassium Chloride Carbon Dioxide BUN Creatinine Glucose POC Glucose 273 H 293 H 360 H Calcium Phosphorus Magnesium AST ALT Alkaline Phosphatase Troponin T C-Reactive Protein Total Protein Albumin Triglycerides HDL Cholesterol Miscellaneous Test Crossmatch 08/31/17 08/31/17 08/31/17 05:30 05:30 05:32 WBC 29.9 H RBC 2.89 L Hgb 8.2 L Hct 24.7 L D MCV MCH RDW 24.4 H Plt Count Lymph % (Auto) [place] % (Auto) [place] # Seg Neutrophils % Seg Neuts % (Manual) Lymphocytes % (Manual) 2.0 L Monocytes % (Manual) Nucleated RBC % 2.0 H Seg Neutrophils # Seg Neutrophils # Man 18.5 H Lymphocytes # (Manual) 0.6 L Monocytes # (Manual) 0.9 H Eosinophils # (Manual) Basophils # (Manual) PT INR POC ABG pH ABG pH POC ABG pCO2 POC ABG pO2 ABG pO2 ABG O2 Saturation ABG Base Excess ABG Hemoglobin Oxyhemoglobin Sodium Potassium Chloride Carbon Dioxide BUN 62 H Creatinine 2.2 H Glucose 245 H POC Glucose 257 H Calcium Phosphorus 2.10 L D Magnesium 1.60 L AST ALT Alkaline Phosphatase Troponin T C-Reactive Protein Total Protein Albumin Triglycerides HDL Cholesterol Miscellaneous Test Crossmatch 08/31/17 08/31/17 08/31/17 11:56 12:05 18:14 WBC 32.5 H RBC 3.19 L Hgb 8.8 L Hct 27.9 L MCV MCH RDW 24.9 H Plt Count Lymph % (Auto) [place] % (Auto) [place] # Seg Neutrophils % Seg Neuts % (Manual) Lymphocytes % (Manual) 1.0 L Monocytes % (Manual) 12.0 H Nucleated RBC % 1.0 H Seg Neutrophils # Seg Neutrophils # Man 13.3 H Lymphocytes # (Manual) 0.3 L Monocytes # (Manual) 3.9 H Eosinophils # (Manual) Basophils # (Manual) PT INR POC ABG pH ABG pH POC ABG pCO2 POC ABG pO2 ABG pO2 ABG O2 Saturation ABG Base Excess ABG Hemoglobin Oxyhemoglobin Sodium Potassium Chloride Carbon Dioxide BUN Creatinine Glucose POC Glucose 245 H Calcium Phosphorus Magnesium AST ALT Alkaline Phosphatase Troponin T C-Reactive Protein Total Protein Albumin Triglycerides HDL Cholesterol Miscellaneous Test Crossmatch See Detail 08/31/17 08/31/17 08/31/17 18:14 18:15 23:53 WBC RBC Hgb Hct MCV MCH RDW Plt Count Lymph % (Auto) [place] % (Auto) [place] # Seg Neutrophils % Seg Neuts % (Manual) Lymphocytes % (Manual) Monocytes % (Manual) Nucleated RBC % Seg Neutrophils # Seg Neutrophils # Man Lymphocytes # (Manual) Monocytes # (Manual) Eosinophils # (Manual) Basophils # (Manual) PT 15.1 H INR POC ABG pH ABG pH POC ABG pCO2 POC ABG pO2 ABG pO2 ABG O2 Saturation ABG Base Excess ABG Hemoglobin Oxyhemoglobin Sodium 136 L Potassium Chloride Carbon Dioxide 21 L BUN 69 H Creatinine 2.3 H Glucose 227 H POC Glucose 301 H Calcium Phosphorus 2.40 L Magnesium 1.50 L AST 143 H ALT 114 H Alkaline Phosphatase 267 H Troponin T C-Reactive Protein Total Protein 4.1 L Albumin 1.8 L Triglycerides HDL Cholesterol Miscellaneous Test Crossmatch 09/01/17 09/01/17 09/01/17 05:00 05:00 05:20 WBC 33.9 H RBC 2.85 L Hgb 7.8 L Hct 24.8 L MCV MCH 27 L RDW 23.9 H Plt Count Lymph % (Auto) [place] % (Auto) [place] # Seg Neutrophils % Seg Neuts % (Manual) Lymphocytes % (Manual) 5.0 L Monocytes % (Manual) Nucleated RBC % Seg Neutrophils # Seg Neutrophils # Man 23.1 H Lymphocytes # (Manual) Monocytes # (Manual) Eosinophils # (Manual) Basophils # (Manual) PT INR POC ABG pH ABG pH 7.348 L POC ABG pCO2 POC ABG pO2 ABG pO2 70.2 L ABG O2 Saturation ABG Base Excess ABG Hemoglobin 7.5 L Oxyhemoglobin Sodium Potassium Chloride Carbon Dioxide BUN 51 H Creatinine 1.8 H Glucose 195 H POC Glucose Calcium Phosphorus 1.70 L D Magnesium 1.60 L AST 80 H ALT 82 H Alkaline Phosphatase 243 H Troponin T C-Reactive Protein Total Protein 4.2 L Albumin 1.7 L Triglycerides HDL Cholesterol Miscellaneous Test Crossmatch 09/01/17 09/01/1717 05:47 11:37 17:39 WBC RBC Hgb Hct MCV MCH RDW Plt Count Lymph % (Auto) [place] % (Auto) [place] # Seg Neutrophils % Seg Neuts % (Manual) Lymphocytes % (Manual) Monocytes % (Manual) Nucleated RBC % Seg Neutrophils # Seg Neutrophils # Man Lymphocytes # (Manual) Monocytes # (Manual) Eosinophils # (Manual) Basophils # (Manual) PT INR POC ABG pH ABG pH POC ABG pCO2 POC ABG pO2 ABG pO2 ABG O2 Saturation ABG Base Excess ABG Hemoglobin Oxyhemoglobin Sodium Potassium Chloride Carbon Dioxide BUN Creatinine Glucose POC Glucose 230 H 254 H 297 H Calcium Phosphorus Magnesium AST ALT Alkaline Phosphatase Troponin T C-Reactive Protein Total Protein Albumin Triglycerides HDL Cholesterol Miscellaneous Test Crossmatch 09/01/17 09/02/17 09/02/17 23:14 04:55 05:31 WBC RBC Hgb Hct MCV MCH RDW Plt Count Lymph % (Auto) [place] % (Auto) [place] # Seg Neutrophils % Seg Neuts % (Manual) Lymphocytes % (Manual) Monocytes % (Manual) Nucleated RBC % Seg Neutrophils # Seg Neutrophils # Man Lymphocytes # (Manual) Monocytes # (Manual) Eosinophils # (Manual) Basophils # (Manual) PT INR POC ABG pH ABG pH POC ABG pCO2 POC ABG pO2 ABG pO2 124.8 H ABG O2 Saturation ABG Base Excess -2.9 L ABG Hemoglobin 5.8 L Oxyhemoglobin Sodium Potassium Chloride Carbon Dioxide BUN Creatinine Glucose POC Glucose 291 H 245 H Calcium Phosphorus Magnesium AST ALT Alkaline Phosphatase Troponin T C-Reactive Protein Total Protein Albumin Triglycerides HDL Cholesterol Miscellaneous Test Crossmatch 09/02/17 09/02/17 09/02/17 06:10 11:58 15:37 WBC RBC Hgb Hct MCV MCH RDW Plt Count Lymph % (Auto) [place] % (Auto) [place] # Seg Neutrophils % Seg Neuts % (Manual) Lymphocytes % (Manual) Monocytes % (Manual) Nucleated RBC % Seg Neutrophils # Seg Neutrophils # Man Lymphocytes # (Manual) Monocytes # (Manual) Eosinophils # (Manual) Basophils # (Manual) PT INR POC ABG pH ABG pH POC ABG pCO2 POC ABG pO2 ABG pO2 ABG O2 Saturation ABG Base Excess ABG Hemoglobin Oxyhemoglobin Sodium Potassium Chloride Carbon Dioxide BUN 68 H Creatinine 2.2 H Glucose 369 H POC Glucose 333 H 314 H Calcium 8.2 L Phosphorus Magnesium AST ALT Alkaline Phosphatase Troponin T C-Reactive Protein Total Protein Albumin Triglycerides HDL Cholesterol Miscellaneous Test Crossmatch 09/02/17 09/03/17 09/03/17 23:50 04:00 05:00 WBC 41.5 H* RBC 2.46 L Hgb 6.9 L Hct 21.3 L MCV MCH RDW 24.9 H Plt Count Lymph % (Auto) [place] % (Auto) [place] # Seg Neutrophils % Seg Neuts % (Manual) Lymphocytes % (Manual) 3.0 L Monocytes % (Manual) 9.5 H Nucleated RBC % 1.5 H Seg Neutrophils # Seg Neutrophils # Man 28.8 H Lymphocytes # (Manual) Monocytes # (Manual) 3.9 H Eosinophils # (Manual) Basophils # (Manual) PT INR POC ABG pH ABG pH POC ABG pCO2 POC ABG pO2 ABG pO2 ABG O2 Saturation ABG Base Excess ABG Hemoglobin Oxyhemoglobin Sodium Potassium Chloride Carbon Dioxide BUN 59 H Creatinine 1.9 H Glucose 231 H POC Glucose 240 H Calcium 8.0 L Phosphorus Magnesium AST ALT Alkaline Phosphatase 265 H Troponin T C-Reactive Protein Total Protein 4.4 L Albumin 1.7 L Triglycerides 180 H HDL Cholesterol Miscellaneous Test Crossmatch 09/03/17 09/03/17 09/03/17 05:32 11:52 16:55 WBC RBC Hgb Hct MCV MCH RDW Plt Count Lymph % (Auto) [place] % (Auto) [place] # Seg Neutrophils % Seg Neuts % (Manual) Lymphocytes % (Manual) Monocytes % (Manual) Nucleated RBC % Seg Neutrophils # Seg Neutrophils # Man Lymphocytes # (Manual) Monocytes # (Manual) Eosinophils # (Manual) Basophils # (Manual) PT INR POC ABG pH ABG pH POC ABG pCO2 POC ABG pO2 ABG pO2 ABG O2 Saturation ABG Base Excess ABG Hemoglobin Oxyhemoglobin Sodium Potassium Chloride Carbon Dioxide BUN Creatinine Glucose POC Glucose 188 H 285 H Calcium Phosphorus Magnesium AST ALT Alkaline Phosphatase Troponin T C-Reactive Protein Total Protein Albumin Triglycerides HDL Cholesterol Miscellaneous Test Crossmatch See Detail 09/03/17 09/03/17 09/03/17 17:44 23:56 Unknown WBC RBC Hgb Hct MCV MCH RDW Plt Count Lymph % (Auto) [place] % (Auto) [place] # Seg Neutrophils % Seg Neuts % (Manual) Lymphocytes % (Manual) Monocytes % (Manual) Nucleated RBC % Seg Neutrophils # Seg Neutrophils # Man Lymphocytes # (Manual) Monocytes # (Manual) Eosinophils # (Manual) Basophils # (Manual) PT INR POC ABG pH ABG pH POC ABG pCO2 POC ABG pO2 ABG pO2 133.4 H ABG O2 Saturation ABG Base Excess ABG Hemoglobin 5.8 L Oxyhemoglobin Sodium Potassium Chloride Carbon Dioxide BUN Creatinine Glucose POC Glucose 217 H 193 H Calcium Phosphorus Magnesium AST ALT Alkaline Phosphatase Troponin T C-Reactive Protein Total Protein Albumin Triglycerides HDL Cholesterol Miscellaneous Test Crossmatch 09/04/17 09/04/17 09/04/17 03:47 04:32 04:32 WBC 44.7 H* RBC 3.12 L Hgb 8.7 L Hct 26.7 L MCV MCH RDW 23.5 H Plt Count Lymph % (Auto) [place] % (Auto) [place] # Seg Neutrophils % Seg Neuts % (Manual) Lymphocytes % (Manual) 4.0 L Monocytes % (Manual) Nucleated RBC % 2.0 H Seg Neutrophils # Seg Neutrophils # Man 30.8 H Lymphocytes # (Manual) Monocytes # (Manual) 2.2 H Eosinophils # (Manual) Basophils # (Manual) PT INR POC ABG pH ABG pH POC ABG pCO2 POC ABG pO2 ABG pO2 135.0 H ABG O2 Saturation ABG Base Excess -2.5 L ABG Hemoglobin 7.9 L Oxyhemoglobin Sodium 136 L Potassium 5.2 H D Chloride 94.2 L Carbon Dioxide BUN 71 H Creatinine 2.3 H Glucose 235 H POC Glucose Calcium 8.3 L Phosphorus Magnesium AST ALT Alkaline Phosphatase Troponin T C-Reactive Protein Total Protein Albumin Triglycerides HDL Cholesterol Miscellaneous Test Crossmatch 09/04/17 09/04/17 09/04/17 05:48 10:43 12:38 WBC RBC Hgb Hct MCV MCH RDW Plt Count Lymph % (Auto) [place] % (Auto) [place] # Seg Neutrophils % Seg Neuts % (Manual) Lymphocytes % (Manual) Monocytes % (Manual) Nucleated RBC % Seg Neutrophils # Seg Neutrophils # Man Lymphocytes # (Manual) Monocytes # (Manual) Eosinophils # (Manual) Basophils # (Manual) PT INR POC ABG pH ABG pH POC ABG pCO2 POC ABG pO2 ABG pO2 ABG O2 Saturation ABG Base Excess ABG Hemoglobin Oxyhemoglobin Sodium Potassium Chloride Carbon Dioxide BUN Creatinine Glucose POC Glucose 329 H 444 H Calcium Phosphorus Magnesium AST ALT Alkaline Phosphatase Troponin T C-Reactive Protein Total Protein Albumin Triglycerides HDL Cholesterol Miscellaneous Test Flexitest 1 H Crossmatch 09/04/17 09/05/17 09/05/17 17:30 00:15 03:55 WBC 35.3 H RBC 2.87 L Hgb 8.1 L Hct 24.6 L MCV MCH RDW 23.3 H Plt Count Lymph % (Auto) [place] % (Auto) [place] # Seg Neutrophils % Seg Neuts % (Manual) 89.5 H Lymphocytes % (Manual) 3.0 L Monocytes % (Manual) Nucleated RBC % 2.5 H Seg Neutrophils # Seg Neutrophils # Man 31.6 H Lymphocytes # (Manual) 1.1 L Monocytes # (Manual) Eosinophils # (Manual) Basophils # (Manual) PT INR POC ABG pH ABG pH POC ABG pCO2 POC ABG pO2 ABG pO2 ABG O2 Saturation ABG Base Excess ABG Hemoglobin Oxyhemoglobin Sodium Potassium Chloride Carbon Dioxide BUN Creatinine Glucose POC Glucose 331 H 362 H Calcium Phosphorus Magnesium AST ALT Alkaline Phosphatase Troponin T C-Reactive Protein Total Protein Albumin Triglycerides HDL Cholesterol Miscellaneous Test Crossmatch 09/05/17 09/05/17 09/05/17 03:55 12:12 14:32 WBC RBC Hgb Hct MCV MCH RDW Plt Count Lymph % (Auto) [place] % (Auto) [place] # Seg Neutrophils % Seg Neuts % (Manual) Lymphocytes % (Manual) Monocytes % (Manual) Nucleated RBC % Seg Neutrophils # Seg Neutrophils # Man Lymphocytes # (Manual) Monocytes # (Manual) Eosinophils # (Manual) Basophils # (Manual) PT INR POC ABG pH ABG pH POC ABG pCO2 POC ABG pO2 ABG pO2 ABG O2 Saturation ABG Base Excess ABG Hemoglobin Oxyhemoglobin Sodium 136 L Potassium Chloride 94.7 L Carbon Dioxide BUN 55 H Creatinine 1.8 H Glucose 193 H POC Glucose 344 H 265 H Calcium 8.1 L Phosphorus Magnesium AST ALT Alkaline Phosphatase Troponin T C-Reactive Protein Total Protein Albumin Triglycerides HDL Cholesterol Miscellaneous Test Crossmatch 09/05/17 09/05/17 09/05/17 15:32 16:41 17:28 WBC RBC Hgb Hct MCV MCH RDW Plt Count Lymph % (Auto) [place] % (Auto) [place] # Seg Neutrophils % Seg Neuts % (Manual) Lymphocytes % (Manual) Monocytes % (Manual) Nucleated RBC % Seg Neutrophils # Seg Neutrophils # Man Lymphocytes # (Manual) Monocytes # (Manual) Eosinophils # (Manual) Basophils # (Manual) PT INR POC ABG pH ABG pH POC ABG pCO2 POC ABG pO2 ABG pO2 ABG O2 Saturation ABG Base Excess ABG Hemoglobin Oxyhemoglobin Sodium Potassium Chloride Carbon Dioxide BUN Creatinine Glucose POC Glucose 145 H 188 H 246 H Calcium Phosphorus Magnesium AST ALT Alkaline Phosphatase Troponin T C-Reactive Protein Total Protein Albumin Triglycerides HDL Cholesterol Miscellaneous Test Crossmatch 09/05/17 09/05/17 09/05/17 18:38 20:10 21:06 WBC RBC Hgb Hct MCV MCH RDW Plt Count Lymph % (Auto) [place] % (Auto) [place] # Seg Neutrophils % Seg Neuts % (Manual) Lymphocytes % (Manual) Monocytes % (Manual) Nucleated RBC % Seg Neutrophils # Seg Neutrophils # Man Lymphocytes # (Manual) Monocytes # (Manual) Eosinophils # (Manual) Basophils # (Manual) PT INR POC ABG pH ABG pH POC ABG pCO2 POC ABG pO2 ABG pO2 ABG O2 Saturation ABG Base Excess ABG Hemoglobin Oxyhemoglobin Sodium Potassium Chloride Carbon Dioxide BUN Creatinine Glucose POC Glucose 271 H 165 H 134 H Calcium Phosphorus Magnesium AST ALT Alkaline Phosphatase Troponin T C-Reactive Protein Total Protein Albumin Triglycerides HDL Cholesterol Miscellaneous Test Crossmatch 09/05/17 09/06/17 09/06/17 23:07 00:10 01:08 WBC RBC Hgb Hct MCV MCH RDW Plt Count Lymph % (Auto) [place] % (Auto) [place] # Seg Neutrophils % Seg Neuts % (Manual) Lymphocytes % (Manual) Monocytes % (Manual) Nucleated RBC % Seg Neutrophils # Seg Neutrophils # Man Lymphocytes # (Manual) Monocytes # (Manual) Eosinophils # (Manual) Basophils # (Manual) PT INR POC ABG pH ABG pH POC ABG pCO2 POC ABG pO2 ABG pO2 ABG O2 Saturation ABG Base Excess ABG Hemoglobin Oxyhemoglobin Sodium Potassium Chloride Carbon Dioxide BUN Creatinine Glucose POC Glucose 135 H 147 H 133 H Calcium Phosphorus Magnesium AST ALT Alkaline Phosphatase Troponin T C-Reactive Protein Total Protein Albumin Triglycerides HDL Cholesterol Miscellaneous Test Crossmatch 09/06/17 09/06/17 09/06/17 02:01 03:08 05:30 WBC 38.6 H RBC 2.95 L Hgb 8.3 L Hct 25.3 L MCV MCH RDW 22.2 H Plt Count Lymph % (Auto) [place] % (Auto) [place] # Seg Neutrophils % Seg Neuts % (Manual) Lymphocytes % (Manual) 2.0 L Monocytes % (Manual) Nucleated RBC % 5.0 H Seg Neutrophils # Seg Neutrophils # Man 25.9 H Lymphocytes # (Manual) 0.8 L Monocytes # (Manual) 1.9 H Eosinophils # (Manual) Basophils # (Manual) PT INR POC ABG pH ABG pH POC ABG pCO2 POC ABG pO2 ABG pO2 ABG O2 Saturation ABG Base Excess ABG Hemoglobin Oxyhemoglobin Sodium Potassium Chloride Carbon Dioxide BUN Creatinine Glucose POC Glucose 146 H 135 H Calcium Phosphorus Magnesium AST ALT Alkaline Phosphatase Troponin T C-Reactive Protein Total Protein Albumin Triglycerides HDL Cholesterol Miscellaneous Test Crossmatch 09/06/17 09/06/17 09/06/17 05:30 05:30 05:48 WBC RBC Hgb Hct MCV MCH RDW Plt Count Lymph % (Auto) [place] % (Auto) [place] # Seg Neutrophils % Seg Neuts % (Manual) Lymphocytes % (Manual) Monocytes % (Manual) Nucleated RBC % Seg Neutrophils # Seg Neutrophils # Man Lymphocytes # (Manual) Monocytes # (Manual) Eosinophils # (Manual) Basophils # (Manual) PT INR POC ABG pH ABG pH POC ABG pCO2 POC ABG pO2 ABG pO2 ABG O2 Saturation ABG Base Excess ABG Hemoglobin Oxyhemoglobin Sodium 135 L Potassium Chloride 93.5 L Carbon Dioxide BUN 82 H Creatinine 2.3 H Glucose 148 H POC Glucose 152 H Calcium Phosphorus Magnesium AST ALT Alkaline Phosphatase Troponin T C-Reactive Protein 2.80 H Total Protein Albumin Triglycerides HDL Cholesterol Miscellaneous Test Crossmatch 09/06/17 09/06/17 09/06/17 08:04 09:06 09:57 WBC RBC Hgb Hct MCV MCH RDW Plt Count Lymph % (Auto) [place] % (Auto) [place] # Seg Neutrophils % Seg Neuts % (Manual) Lymphocytes % (Manual) Monocytes % (Manual) Nucleated RBC % Seg Neutrophils # Seg Neutrophils # Man Lymphocytes # (Manual) Monocytes # (Manual) Eosinophils # (Manual) Basophils # (Manual) PT INR POC ABG pH ABG pH POC ABG pCO2 POC ABG pO2 ABG pO2 ABG O2 Saturation ABG Base Excess ABG Hemoglobin Oxyhemoglobin Sodium Potassium Chloride Carbon Dioxide BUN Creatinine Glucose POC Glucose 164 H 172 H Calcium Phosphorus Magnesium AST ALT Alkaline Phosphatase Troponin T C-Reactive Protein Total Protein Albumin Triglycerides HDL Cholesterol Miscellaneous Test Flexitest 1 H Crossmatch 09/06/17 09/06/17 09/06/17 10:19 10:57 13:12 WBC RBC Hgb Hct MCV MCH RDW Plt Count Lymph % (Auto) [place] % (Auto) [place] # Seg Neutrophils % Seg Neuts % (Manual) Lymphocytes % (Manual) Monocytes % (Manual) Nucleated RBC % Seg Neutrophils # Seg Neutrophils # Man Lymphocytes # (Manual) Monocytes # (Manual) Eosinophils # (Manual) Basophils # (Manual) PT INR POC ABG pH ABG pH POC ABG pCO2 POC ABG pO2 ABG pO2 ABG O2 Saturation ABG Base Excess ABG Hemoglobin Oxyhemoglobin Sodium Potassium Chloride Carbon Dioxide BUN Creatinine Glucose POC Glucose 186 H 162 H 166 H Calcium Phosphorus Magnesium AST ALT Alkaline Phosphatase Troponin T C-Reactive Protein Total Protein Albumin Triglycerides HDL Cholesterol Miscellaneous Test Crossmatch 09/06/17 09/06/17 09/07/17 13:40 17:36 00:13 WBC RBC Hgb 8.9 L Hct 28.5 L MCV MCH RDW Plt Count Lymph % (Auto) [place] % (Auto) [place] # Seg Neutrophils % Seg Neuts % (Manual) Lymphocytes % (Manual) Monocytes % (Manual) Nucleated RBC % Seg Neutrophils # Seg Neutrophils # Man Lymphocytes # (Manual) Monocytes # (Manual) Eosinophils # (Manual) Basophils # (Manual) PT INR POC ABG pH ABG pH POC ABG pCO2 POC ABG pO2 ABG pO2 ABG O2 Saturation ABG Base Excess ABG Hemoglobin Oxyhemoglobin Sodium Potassium Chloride Carbon Dioxide BUN Creatinine Glucose POC Glucose 161 H 183 H Calcium Phosphorus Magnesium AST ALT Alkaline Phosphatase Troponin T C-Reactive Protein Total Protein Albumin Triglycerides HDL Cholesterol Miscellaneous Test Crossmatch 09/07/17 09/07/17 09/07/17 03:50 03:50 05:12 WBC 47.0 H* RBC 2.81 L Hgb 8.1 L Hct 24.1 L MCV MCH RDW 22.5 H Plt Count Lymph % (Auto) [place] % (Auto) [place] # Seg Neutrophils % Seg Neuts % (Manual) Lymphocytes % (Manual) 9.0 L Monocytes % (Manual) Nucleated RBC % 6.0 H Seg Neutrophils # Seg Neutrophils # Man 27.3 H Lymphocytes # (Manual) Monocytes # (Manual) 0.9 H Eosinophils # (Manual) 1.9 H Basophils # (Manual) PT INR POC ABG pH ABG pH POC ABG pCO2 POC ABG pO2 ABG pO2 ABG O2 Saturation ABG Base Excess ABG Hemoglobin Oxyhemoglobin Sodium 136 L Potassium Chloride 96.3 L Carbon Dioxide BUN 61 H Creatinine 1.7 H Glucose 132 H POC Glucose 162 H Calcium 7.8 L Phosphorus Magnesium AST ALT Alkaline Phosphatase Troponin T C-Reactive Protein Total Protein Albumin Triglycerides HDL Cholesterol Miscellaneous Test Crossmatch 09/07/17 09/07/17 09/07/17 05:23 11:48 17:07 WBC RBC Hgb Hct MCV MCH RDW Plt Count Lymph % (Auto) [place] % (Auto) [place] # Seg Neutrophils % Seg Neuts % (Manual) Lymphocytes % (Manual) Monocytes % (Manual) Nucleated RBC % Seg Neutrophils # Seg Neutrophils # Man Lymphocytes # (Manual) Monocytes # (Manual) Eosinophils # (Manual) Basophils # (Manual) PT INR POC ABG pH ABG pH POC ABG pCO2 POC ABG pO2 ABG pO2 ABG O2 Saturation ABG Base Excess ABG Hemoglobin 7.7 L Oxyhemoglobin 94.8 L Sodium Potassium Chloride Carbon Dioxide BUN Creatinine Glucose POC Glucose 200 H Calcium Phosphorus Magnesium AST ALT Alkaline Phosphatase Troponin T C-Reactive Protein Total Protein Albumin Triglycerides HDL Cholesterol Miscellaneous Test Crossmatch See Detail 09/07/17 09/08/17 09/08/17 18:21 00:06 04:05 WBC 49.7 H* RBC 2.58 L Hgb 7.3 L Hct 22.7 L MCV MCH RDW 22.5 H Plt Count Lymph % (Auto) [place] % (Auto) [place] # Seg Neutrophils % Seg Neuts % (Manual) 90.5 H Lymphocytes % (Manual) 1.5 L Monocytes % (Manual) Nucleated RBC % Seg Neutrophils # Seg Neutrophils # Man 45.0 H Lymphocytes # (Manual) 0.7 L Monocytes # (Manual) 1.7 H Eosinophils # (Manual) Basophils # (Manual) PT INR POC ABG pH ABG pH POC ABG pCO2 POC ABG pO2 ABG pO2 ABG O2 Saturation ABG Base Excess ABG Hemoglobin Oxyhemoglobin Sodium Potassium Chloride Carbon Dioxide BUN Creatinine Glucose POC Glucose 181 H 168 H Calcium Phosphorus Magnesium AST ALT Alkaline Phosphatase Troponin T C-Reactive Protein Total Protein Albumin Triglycerides HDL Cholesterol Miscellaneous Test Crossmatch 09/08/17 09/08/17 09/08/17 04:05 04:41 09:21 WBC RBC Hgb Hct MCV MCH RDW Plt Count Lymph % (Auto) [place] % (Auto) [place] # Seg Neutrophils % Seg Neuts % (Manual) Lymphocytes % (Manual) Monocytes % (Manual) Nucleated RBC % Seg Neutrophils # Seg Neutrophils # Man Lymphocytes # (Manual) Monocytes # (Manual) Eosinophils # (Manual) Basophils # (Manual) PT INR POC ABG pH ABG pH POC ABG pCO2 POC ABG pO2 ABG pO2 218.5 H ABG O2 Saturation 99.3 H ABG Base Excess -3.5 L ABG Hemoglobin 7.7 L Oxyhemoglobin Sodium 132 L Potassium Chloride 92.1 L Carbon Dioxide BUN 82 H Creatinine 2.2 H Glucose 162 H POC Glucose 235 H Calcium 8.3 L Phosphorus 5.20 H D Magnesium AST ALT Alkaline Phosphatase 199 H Troponin T C-Reactive Protein Total Protein 4.5 L Albumin 1.7 L Triglycerides HDL Cholesterol Miscellaneous Test Crossmatch 09/08/17 09/08/17 09/09/17 11:52 17:38 00:24 WBC RBC Hgb Hct MCV MCH RDW Plt Count Lymph % (Auto) [place] % (Auto) [place] # Seg Neutrophils % Seg Neuts % (Manual) Lymphocytes % (Manual) Monocytes % (Manual) Nucleated RBC % Seg Neutrophils # Seg Neutrophils # Man Lymphocytes # (Manual) Monocytes # (Manual) Eosinophils # (Manual) Basophils # (Manual) PT INR POC ABG pH ABG pH POC ABG pCO2 POC ABG pO2 ABG pO2 ABG O2 Saturation ABG Base Excess ABG Hemoglobin Oxyhemoglobin Sodium Potassium Chloride Carbon Dioxide BUN Creatinine Glucose POC Glucose 220 H 194 H 182 H Calcium Phosphorus Magnesium AST ALT Alkaline Phosphatase Troponin T C-Reactive Protein Total Protein Albumin Triglycerides HDL Cholesterol Miscellaneous Test Crossmatch 09/09/17 09/09/17 09/09/17 03:37 03:37 05:29 WBC 33.5 H RBC 2.36 L Hgb 6.7 L Hct 20.9 L MCV MCH RDW 22.7 H Plt Count Lymph % (Auto) [place] % (Auto) [place] # Seg Neutrophils % Seg Neuts % (Manual) Lymphocytes % (Manual) Monocytes % (Manual) Nucleated RBC % Seg Neutrophils # Seg Neutrophils # Man Lymphocytes # (Manual) Monocytes # (Manual) Eosinophils # (Manual) Basophils # (Manual) PT INR POC ABG pH ABG pH POC ABG pCO2 POC ABG pO2 ABG pO2 ABG O2 Saturation ABG Base Excess ABG Hemoglobin Oxyhemoglobin Sodium 132 L Potassium Chloride 91.6 L Carbon Dioxide 21 L BUN 101 H Creatinine 2.6 H Glucose 156 H POC Glucose 168 H Calcium 8.3 L Phosphorus 5.90 H Magnesium 2.60 H AST ALT Alkaline Phosphatase Troponin T C-Reactive Protein Total Protein Albumin Triglycerides HDL Cholesterol Miscellaneous Test Crossmatch 09/09/17 09/09/17 12:03 Unknown WBC RBC Hgb Hct MCV MCH RDW Plt Count Lymph % (Auto) [place] % (Auto) [place] # Seg Neutrophils % Seg Neuts % (Manual) Lymphocytes % (Manual) Monocytes % (Manual) Nucleated RBC % Seg Neutrophils # Seg Neutrophils # Man Lymphocytes # (Manual) Monocytes # (Manual) Eosinophils # (Manual) Basophils # (Manual) PT INR POC ABG pH ABG pH 7.323 L POC ABG pCO2 POC ABG pO2 ABG pO2 94.1 H ABG O2 Saturation ABG Base Excess -4.8 L ABG Hemoglobin 8.0 L Oxyhemoglobin 94.9 L Sodium Potassium Chloride Carbon Dioxide BUN Creatinine Glucose POC Glucose 143 H Calcium Phosphorus Magnesium AST ALT Alkaline Phosphatase Troponin T C-Reactive Protein Total Protein Albumin Triglycerides HDL Cholesterol Miscellaneous Test Crossmatch
--- NOTE | 2017-09-09 15:26 | Progress Note ---
Assessment and Plan /Acute hypoxic respiratory failure on MV > 96 hours continue ventilator support, planned for tracheostomy today, has failed extubation multiple times /Sepsis secondary to peritonitis, Intra abdominal abscess and Bowel obstruction - Patient had completed 14 days of meropenem and diflucan, was restarted again due to fever/septic shock - continue abx per ID recommendation - she has had the following procedures 08/31: Ex lap with abdominal wash out and closure 08/17: Ex lap with G tube placement, EGD, abdominal wash out and removal of PD Cath -taper steroids /Acute rectal bleeding with severe acute blood loss anemia -EGD showed small gastric ulcer -s/p multiple transfusions -- GI consult appreciated - Patient had CTA of abdomen and pelvis no active bleeding, CT Abdomen repeated 09/06, no acute findings - transfuse to keep Hg above 8 given septic shock - continue PPI drip, too unstable for C scope at this time - wean steroids /Melana, GIB likely from PUD -start PPI drip, keep NPO, monitor Hg and transfuse to keep above 8 -wean off steroids. /Ulcerative esophagitis/small gastric ulcer on EGD - IV pantoprazole /ESRD -continue HD per renal per femoral HD cath -needs perm cath when improved /Septic shock. - continue IV pressors, wean off as needed continue abx, ID input appreciated /Severe Protein calorie malnutrition - Continue with TPN /Sacral and lower extremity wound, POA - continue wound care /NSVT likely due to levophed, wean as tolerated cardiology input appreciated /DVT prophylaxis; SCDs - D/C Heparin because of GI bleed Disposition: continue ICU care Prognosis: guarded The high probability of a clinically significant, sudden or life threatening deterioration of the [cv, pulmonary and GI] system(s) required my full and direct attention, intervention and personal management. The aggregate critical care time was [33] minutes. This time is in addition to time spent performing reported procedures but includes the following: [] Data Review and interpretation [] Patient assessment and monitoring of vital signs [] Documentation [] Medication orders and management Brief History: 62 YO Female with MO, ESRD-PD (with PD cath in place )(Daily), HTN, OA, Ischemic Cardiomyopathy currently on Milrinone, Chronic Pain who came to ED with lightheaded and syncope, she c/o abdomnal pain x 2 days, was found to have hypotension, septic shock and intra-abdominal abscess. Hospitalist Physical - Physical exam Narrative exam: General.: Obese HEENT: Moist mucous membranes, extraocular muscles intact, no lymphadenopathy Neck: supple. no rigidity Cardiac: S1-S2 +ve Lungs: clear to auscultation bilaterally Abdomen: soft, bowel sounds normal, other (obese, soft, dressing not removed). drainage from PEG tube and drainage catheter noted Extremities: + edema no clubbing or cyanosis Skin: no rash or lesions Neurologic: Intubated, obeys commands, arousable Subjective Date of service: 09/09/17 Principal diagnosis: rectal bleeding Interval history: She has had no more episodes of melena today. planned to have trach placement today Discussed with family at bedside Objective - Constitutional Vitals: Vital Signs - 12hr 09/09/17 09/09/17 09/09/17 03:31 03:45 04:00 Temperature Pulse Rate 88 87 90 Pulse Rate [ From Monitor] Pulse Rate [ Throughout] Respiratory 20 20 Rate Respiratory Rate [ Throughout] Blood Pressure 80/62 75/42 84/66 O2 Sat by Pulse 100 100 100 Oximetry 09/09/17 09/09/17 09/09/17 04:01 04:15 04:31 Temperature Pulse Rate 92 H 89 94 H Pulse Rate [ From Monitor] Pulse Rate [ Throughout] Respiratory 21 20 21 Rate Respiratory Rate [ Throughout] Blood Pressure 84/66 84/66 90/60 O2 Sat by Pulse 100 100 100 Oximetry 09/09/17 09/09/17 09/09/17 04:45 05:01 05:15 Temperature Pulse Rate 92 H 92 H 90 Pulse Rate [ From Monitor] Pulse Rate [ Throughout] Respiratory 20 20 20 Rate Respiratory Rate [ Throughout] Blood Pressure 90/60 115/98 115/98 O2 Sat by Pulse 100 100 100 Oximetry 09/09/17 09/09/17 09/09/17 05:31 05:45 06:01 Temperature Pulse Rate 92 H 92 H 94 H Pulse Rate [ From Monitor] Pulse Rate [ Throughout] Respiratory 15 19 22 Rate Respiratory Rate [ Throughout] Blood Pressure 99/53 99/53 94/55 O2 Sat by Pulse 100 100 99 Oximetry 09/09/17 09/09/17 09/09/17 06:15 06:30 06:45 Temperature Pulse Rate 92 H 93 H 96 H Pulse Rate [ From Monitor] Pulse Rate [ Throughout] Respiratory 20 20 21 Rate Respiratory Rate [ Throughout] Blood Pressure 94/55 94/53 94/55 O2 Sat by Pulse 100 100 100 Oximetry 09/09/17 09/09/17 09/09/17 07:01 07:15 07:31 Temperature Pulse Rate 90 92 H 90 Pulse Rate [ From Monitor] Pulse Rate [ Throughout] Respiratory 20 21 20 Rate Respiratory Rate [ Throughout] Blood Pressure 111/57 111/57 119/51 O2 Sat by Pulse 100 100 100 Oximetry 09/09/17 09/09/17 09/09/17 07:45 07:58 08:00 Temperature 98.7 F Pulse Rate 90 90 89 Pulse Rate [ 92 H From Monitor] Pulse Rate [ Throughout] Respiratory 20 19 Rate Respiratory Rate [ Throughout] Blood Pressure 119/51 109/80 116/69 O2 Sat by Pulse 100 100 100 Oximetry 09/09/17 09/09/17 09/09/17 08:02 08:11 08:15 Temperature Pulse Rate 91 H Pulse Rate [ From Monitor] Pulse Rate [ 90 91 H Throughout] Respiratory 20 Rate Respiratory 20 20 Rate [ Throughout] Blood Pressure 116/69 O2 Sat by Pulse 100 Oximetry 09/09/17 09/09/17 09/09/17 08:31 08:45 09:01 Temperature Pulse Rate 91 H 89 90 Pulse Rate [ From Monitor] Pulse Rate [ Throughout] Respiratory 20 19 18 Rate Respiratory Rate [ Throughout] Blood Pressure 107/69 107/69 110/51 O2 Sat by Pulse 100 100 100 Oximetry 09/09/17 09/09/17 09/09/17 09:15 09:31 09:45 Temperature Pulse Rate 87 93 H 91 H Pulse Rate [ From Monitor] Pulse Rate [ Throughout] Respiratory 20 17 20 Rate Respiratory Rate [ Throughout] Blood Pressure 110/51 68/16 O2 Sat by Pulse 100 100 100 Oximetry 09/09/17 09/09/17 09/09/17 10:00 10:15 10:31 Temperature Pulse Rate 91 H 91 H 93 H Pulse Rate [ From Monitor] Pulse Rate [ Throughout] Respiratory 20 20 19 Rate Respiratory Rate [ Throughout] Blood Pressure 97/52 97/52 100/45 O2 Sat by Pulse 99 100 100 Oximetry 09/09/17 09/09/17 09/09/17 10:45 11:00 11:15 Temperature Pulse Rate 93 H 94 H 94 H Pulse Rate [ From Monitor] Pulse Rate [ Throughout] Respiratory 20 21 20 Rate Respiratory Rate [ Throughout] Blood Pressure 100/45 113/50 113/50 O2 Sat by Pulse 98 100 99 Oximetry 09/09/17 09/09/17 09/09/17 11:31 11:41 11:45 Temperature Pulse Rate 93 H 92 H 91 H Pulse Rate [ From Monitor] Pulse Rate [ Throughout] Respiratory 21 20 Rate Respiratory Rate [ Throughout] Blood Pressure 113/50 101/49 101/49 O2 Sat by Pulse 100 100 100 Oximetry 09/09/17 09/09/17 09/09/17 12:00 12:01 12:15 Temperature 98.6 F Pulse Rate 90 87 Pulse Rate [ From Monitor] Pulse Rate [ Throughout] Respiratory 20 21 Rate Respiratory Rate [ Throughout] Blood Pressure 105/44 105/44 O2 Sat by Pulse 100 100 Oximetry 09/09/17 09/09/17 09/09/17 12:30 12:45 13:00 Temperature Pulse Rate 86 86 84 Pulse Rate [ From Monitor] Pulse Rate [ Throughout] Respiratory 20 21 21 Rate Respiratory Rate [ Throughout] Blood Pressure 108/50 108/50 119/59 O2 Sat by Pulse 100 99 100 Oximetry 09/09/17 09/09/17 09/09/17 13:15 13:30 13:45 Temperature Pulse Rate 110 H 92 H 89 Pulse Rate [ From Monitor] Pulse Rate [ Throughout] Respiratory 16 20 19 Rate Respiratory Rate [ Throughout] Blood Pressure 145/67 126/57 126/57 O2 Sat by Pulse 100 100 100 Oximetry 09/09/17 09/09/17 09/09/17 14:00 14:15 14:16 Temperature Pulse Rate 89 83 Pulse Rate [ From Monitor] Pulse Rate [ 84 Throughout] Respiratory 20 19 Rate Respiratory 20 Rate [ Throughout] Blood Pressure 121/57 121/57 O2 Sat by Pulse 100 100 Oximetry 09/09/17 14:28 Temperature Pulse Rate Pulse Rate [ From Monitor] Pulse Rate [ 86 Throughout] Respiratory Rate Respiratory 20 Rate [ Throughout] Blood Pressure O2 Sat by Pulse Oximetry - Labs CBC & Chem 7: 09/09/17 03:37 09/10/17 07:00 Labs: Abnormal lab results 09/06/17 09/08/17 09/08/17 Range/Units 09:57 11:52 17:38 WBC (4.5-11.0) K/mm3 RBC (3.65-5.03) M/mm3 Hgb (10.1-14.3) gm/dl Hct (30.3-42.9) % RDW (13.2-15.2) % ABG pH (7.350-7.450) pH Units ABG pO2 (80.0-90.0) mm Hg ABG Base Excess (-2.0-3.0) mmol/L ABG Hemoglobin (12.0-16.0) gm/dl Oxyhemoglobin (95.0-99.0) % Sodium (137-145) mmol/L Chloride (98-107) mmol/L Carbon Dioxide (22-30) mmol/L BUN (7-17) mg/dL Creatinine (0.7-1.2) mg/dL Glucose (65-100) mg/dL POC Glucose 220 H 194 H (70-105) Calcium (8.4-10.2) mg/dL Phosphorus (2.5-4.5) mg/dL Magnesium (1.7-2.3) mg/dL Miscellaneous Test Flexitest 1 H 09/09/17 09/09/17 09/09/17 Range/Units 00:24 03:37 03:37 WBC 33.5 H (4.5-11.0) K/mm3 RBC 2.36 L (3.65-5.03) M/mm3 Hgb 6.7 L (10.1-14.3) gm/dl Hct 20.9 L (30.3-42.9) % RDW 22.7 H (13.2-15.2) % ABG pH (7.350-7.450) pH Units ABG pO2 (80.0-90.0) mm Hg ABG Base Excess (-2.0-3.0) mmol/L ABG Hemoglobin (12.0-16.0) gm/dl Oxyhemoglobin (95.0-99.0) % Sodium 132 L (137-145) mmol/L Chloride 91.6 L (98-107) mmol/L Carbon Dioxide 21 L (22-30) mmol/L BUN 101 H (7-17) mg/dL Creatinine 2.6 H (0.7-1.2) mg/dL Glucose 156 H (65-100) mg/dL POC Glucose 182 H (70-105) Calcium 8.3 L (8.4-10.2) mg/dL Phosphorus 5.90 H (2.5-4.5) mg/dL Magnesium 2.60 H (1.7-2.3) mg/dL Miscellaneous Test 09/09/17 09/09/17 09/09/17 Range/Units 05:29 12:03 Unknown WBC (4.5-11.0) K/mm3 RBC (3.65-5.03) M/mm3 Hgb (10.1-14.3) gm/dl Hct (30.3-42.9) % RDW (13.2-15.2) % ABG pH 7.323 L (7.350-7.450) pH Units ABG pO2 94.1 H (80.0-90.0) mm Hg ABG Base Excess -4.8 L (-2.0-3.0) mmol/L ABG Hemoglobin 8.0 L (12.0-16.0) gm/dl Oxyhemoglobin 94.9 L (95.0-99.0) % Sodium (137-145) mmol/L Chloride (98-107) mmol/L Carbon Dioxide (22-30) mmol/L BUN (7-17) mg/dL Creatinine (0.7-1.2) mg/dL Glucose (65-100) mg/dL POC Glucose 168 H 143 H (70-105) Calcium (8.4-10.2) mg/dL Phosphorus (2.5-4.5) mg/dL Magnesium (1.7-2.3) mg/dL Miscellaneous Test
--- NOTE | 2017-09-09 16:48 | Progress Note ---
Assessment and Plan 62 y.o. F s/p ex lap, abdominal wash out and abdominal wall closure after wound dehiscence 2 weeks s/p ex lap for gastric perforation and sbo. Sepsis: Pt requiring levo, with requirements increased during HD. Steroids are being weaned down as well, now 25 Daily. . Source of sepsis unknown. Recent CT abd pelvis does not show any collections. Rec. follow blood cultures. F/u cultures. -Wound care following wounds on legs/sacrum -zyvox and diflucan, merrem. -leukocytosis improving VDRF: s/p trach. GI bleed-resolved: Pt started to have melena now resolved. The source is likely lower GI since G tube has remained bilious. Rec. GI to re-eval however she is likely unstable for C-scope at this time. If bleeding continues rec bleeding scan for possible source. Prev Gastric perf: Continue NG to intermit. low wall suction If G tube output continues to decrease and the pt does not have signs of ileus, we will perform methylene blue test a bedside via NG tube to assess the status of the prev. perforation (possible Wed) - If perf healed, will do clamp trial of G tube to asses if she could then be started on trickle feeds. The goal is for pt to be started on trickle enteric feeds however these cannot be started until healing of the previous gastric perf is confirmed. Nutrition: TPN at 75- replace G tube losses though she is renal? Renal to manage fluids. -MERVIN continues to be drk red- on recent ex lap a hematoma was inferior to stomach to noted but no active bleeding. MERVIN contents may rep breaking down of old clot. Rec. trend H and H. 2 units at HD today DVT proph: scds hold hep with GI bleed. GI: PPI. - Patient Problems (1) Peritonitis (acute) generalized Current Visit: Yes Status: Acute Subjective Narrative: s/p trach earlier today. Currently getting HD and prbc transfusion. Levo at 7 but increasing due to being on HD. Pt awake but does not follow commands. NG minimal G tube 400cc bilious MERVIN: 215 drk red, no clots. Objective Vital Signs - 12hr 09/09/17 09/09/17 09/09/17 04:45 05:01 05:15 Temperature Pulse Rate 92 H 92 H 90 Pulse Rate [ From Monitor] Pulse Rate [ Throughout] Respiratory 20 20 20 Rate Respiratory Rate [ Throughout] Blood Pressure 90/60 115/98 115/98 O2 Sat by Pulse 100 100 100 Oximetry 09/09/17 09/09/17 09/09/17 05:31 05:45 06:01 Temperature Pulse Rate 92 H 92 H 94 H Pulse Rate [ From Monitor] Pulse Rate [ Throughout] Respiratory 15 19 22 Rate Respiratory Rate [ Throughout] Blood Pressure 99/53 99/53 94/55 O2 Sat by Pulse 100 100 99 Oximetry 09/09/17 09/09/17 09/09/17 06:15 06:30 06:45 Temperature Pulse Rate 92 H 93 H 96 H Pulse Rate [ From Monitor] Pulse Rate [ Throughout] Respiratory 20 20 21 Rate Respiratory Rate [ Throughout] Blood Pressure 94/55 94/53 94/55 O2 Sat by Pulse 100 100 100 Oximetry 09/09/17 09/09/17 09/09/17 07:01 07:15 07:31 Temperature Pulse Rate 90 92 H 90 Pulse Rate [ From Monitor] Pulse Rate [ Throughout] Respiratory 20 21 20 Rate Respiratory Rate [ Throughout] Blood Pressure 111/57 111/57 119/51 O2 Sat by Pulse 100 100 100 Oximetry 09/09/17 09/09/17 09/09/17 07:45 07:58 08:00 Temperature 98.7 F Pulse Rate 90 90 89 Pulse Rate [ 92 H From Monitor] Pulse Rate [ Throughout] Respiratory 20 19 Rate Respiratory Rate [ Throughout] Blood Pressure 119/51 109/80 116/69 O2 Sat by Pulse 100 100 100 Oximetry 09/09/17 09/09/17 09/09/17 08:02 08:11 08:15 Temperature Pulse Rate 91 H Pulse Rate [ From Monitor] Pulse Rate [ 90 91 H Throughout] Respiratory 20 Rate Respiratory 20 20 Rate [ Throughout] Blood Pressure 116/69 O2 Sat by Pulse 100 Oximetry 09/09/17 09/09/17 09/09/17 08:31 08:45 09:01 Temperature Pulse Rate 91 H 89 90 Pulse Rate [ From Monitor] Pulse Rate [ Throughout] Respiratory 20 19 18 Rate Respiratory Rate [ Throughout] Blood Pressure 107/69 107/69 110/51 O2 Sat by Pulse 100 100 100 Oximetry 09/09/17 09/09/17 09/09/17 09:15 09:31 09:45 Temperature Pulse Rate 87 93 H 91 H Pulse Rate [ From Monitor] Pulse Rate [ Throughout] Respiratory 20 17 20 Rate Respiratory Rate [ Throughout] Blood Pressure 110/51 68/16 O2 Sat by Pulse 100 100 100 Oximetry 09/09/17 09/09/17 09/09/17 10:00 10:15 10:31 Temperature Pulse Rate 91 H 91 H 93 H Pulse Rate [ From Monitor] Pulse Rate [ Throughout] Respiratory 20 20 19 Rate Respiratory Rate [ Throughout] Blood Pressure 97/52 97/52 100/45 O2 Sat by Pulse 99 100 100 Oximetry 09/09/17 09/09/17 09/09/17 10:45 11:00 11:15 Temperature Pulse Rate 93 H 94 H 94 H Pulse Rate [ From Monitor] Pulse Rate [ Throughout] Respiratory 20 21 20 Rate Respiratory Rate [ Throughout] Blood Pressure 100/45 113/50 113/50 O2 Sat by Pulse 98 100 99 Oximetry 09/09/17 09/09/17 09/09/17 11:31 11:41 11:45 Temperature Pulse Rate 93 H 92 H 91 H Pulse Rate [ From Monitor] Pulse Rate [ Throughout] Respiratory 21 20 Rate Respiratory Rate [ Throughout] Blood Pressure 113/50 101/49 101/49 O2 Sat by Pulse 100 100 100 Oximetry 09/09/17 09/09/17 09/09/17 12:00 12:01 12:15 Temperature 98.6 F Pulse Rate 90 87 Pulse Rate [ From Monitor] Pulse Rate [ Throughout] Respiratory 20 21 Rate Respiratory Rate [ Throughout] Blood Pressure 105/44 105/44 O2 Sat by Pulse 100 100 Oximetry 09/09/17 09/09/17 09/09/17 12:30 12:45 13:00 Temperature Pulse Rate 86 86 84 Pulse Rate [ From Monitor] Pulse Rate [ Throughout] Respiratory 20 21 21 Rate Respiratory Rate [ Throughout] Blood Pressure 108/50 108/50 119/59 O2 Sat by Pulse 100 99 100 Oximetry 09/09/17 09/09/17 09/09/17 13:15 13:30 13:45 Temperature Pulse Rate 110 H 92 H 89 Pulse Rate [ From Monitor] Pulse Rate [ Throughout] Respiratory 16 20 19 Rate Respiratory Rate [ Throughout] Blood Pressure 145/67 126/57 126/57 O2 Sat by Pulse 100 100 100 Oximetry 09/09/17 09/09/17 09/09/17 14:00 14:15 14:16 Temperature Pulse Rate 89 83 Pulse Rate [ From Monitor] Pulse Rate [ 84 Throughout] Respiratory 20 19 Rate Respiratory 20 Rate [ Throughout] Blood Pressure 121/57 121/57 O2 Sat by Pulse 100 100 Oximetry 09/09/17 09/09/17 09/09/17 14:28 14:31 14:45 Temperature Pulse Rate 84 81 Pulse Rate [ From Monitor] Pulse Rate [ 86 Throughout] Respiratory 13 20 Rate Respiratory 20 Rate [ Throughout] Blood Pressure 115/42 115/42 O2 Sat by Pulse 100 100 Oximetry 09/09/17 09/09/17 09/09/17 15:00 15:15 15:30 Temperature Pulse Rate 82 83 81 Pulse Rate [ From Monitor] Pulse Rate [ Throughout] Respiratory 20 17 20 Rate Respiratory Rate [ Throughout] Blood Pressure 126/41 126/41 131/56 O2 Sat by Pulse 100 100 100 Oximetry 09/09/17 09/09/17 09/09/17 15:45 16:00 16:01 Temperature 98.7 F Pulse Rate 84 77 80 Pulse Rate [ From Monitor] Pulse Rate [ Throughout] Respiratory 19 20 20 Rate Respiratory Rate [ Throughout] Blood Pressure 120/55 124/44 137/50 O2 Sat by Pulse 100 100 100 Oximetry 09/09/17 09/09/17 16:15 16:20 Temperature Pulse Rate 87 81 Pulse Rate [ From Monitor] Pulse Rate [ Throughout] Respiratory 20 Rate Respiratory Rate [ Throughout] Blood Pressure 113/46 113/46 O2 Sat by Pulse 100 100 Oximetry - General physical appearance no distress, chronically ill, obese - ENT other (trach in place. vent) - Respiratory normal expansion, normal respiratory effort - Abdomen soft, other (obese, soft, tender at midline incision. dressing not removed due to currently doing HD. MERVIN and G tube in place. ) - Integumentary other (weeping ) - Musculoskeletal other (+3 edema upper and lower extremities ) - Labs 09/09/17 03:37 09/09/17 03:37 Diabetes panel 09/09/17 Range/Units 03:37 Sodium 132 L (137-145) mmol/L Potassium 4.4 (3.6-5.0) mmol/L Chloride 91.6 L (98-107) mmol/L Carbon Dioxide 21 L (22-30) mmol/L BUN 101 H (7-17) mg/dL Creatinine 2.6 H (0.7-1.2) mg/dL Glucose 156 H (65-100) mg/dL Calcium 8.3 L (8.4-10.2) mg/dL Calcium panel 09/09/17 Range/Units 03:37 Calcium 8.3 L (8.4-10.2) mg/dL Phosphorus 5.90 H (2.5-4.5) mg/dL Pituitary panel 09/09/17 Range/Units 03:37 Sodium 132 L (137-145) mmol/L Potassium 4.4 (3.6-5.0) mmol/L Chloride 91.6 L (98-107) mmol/L Carbon Dioxide 21 L (22-30) mmol/L BUN 101 H (7-17) mg/dL Creatinine 2.6 H (0.7-1.2) mg/dL Glucose 156 H (65-100) mg/dL Calcium 8.3 L (8.4-10.2) mg/dL Adrenal panel 09/09/17 Range/Units 03:37 Sodium 132 L (137-145) mmol/L Potassium 4.4 (3.6-5.0) mmol/L Chloride 91.6 L (98-107) mmol/L Carbon Dioxide 21 L (22-30) mmol/L BUN 101 H (7-17) mg/dL Creatinine 2.6 H (0.7-1.2) mg/dL Glucose 156 H (65-100) mg/dL Calcium 8.3 L (8.4-10.2) mg/dL
[2017-09-09] MEDS ORDERED: TPN ADULT 1,800 ML IV SCH (20:00)
[2017-09-09] MEDS ORDERED: INTRALIPID 20% 250 ML IV SCH (20:00)
--- NOTE | 2017-09-09 22:30 | Progress Note ---
Assessment and Plan - Patient Problems (1) Leukocytosis Current Visit: Yes Status: Acute Qualifiers: Leukocytosis type: L Plan to address problem: See notes above. make sure that PD access is clean also. see notes. Probably infection from the infected PD catheter. improving. back up again. up/down continue to monitor. it continuos to rise. still high. (2) Anemia Current Visit: Yes Status: Acute Qualifiers: Anemia type: A Iron deficiency anemia type: I Vitamin B12 deficiency anemia type: V Folate deficiency anemia type: F Bone marrow failure anemia type: B Hemolytic anemia type: H Other causes of anemia: O Chronic kidney disease stage: C Plan to address problem: see notes , monitor labs,. see notes above. continue to monitor labs with you. blood transfusion. S/P replacement transfusion. fair. s/p 1unit transfusion. (3) Acute respiratory failure Current Visit: Yes Status: Acute Qualifiers: Respiratory failure complication: R Plan to address problem: follow pulm. Subjective Date of service: 09/09/17 Principal diagnosis: rectal bleeding Interval history: Patient seen today/examined, labs reviewed, case d/w she, and family.complaints of abdominal pain. Patient resting in bed in the ICU, post vascular procedure. labs reviewed, Reactive thrombocytosis, anemia of CD, leukocytosis from infection vs inflamatory process. Patient seen/examined, in bed in the ICU, on the vent post surgery.Labs reviewed , notes reviewed. will continue to monitor labs/patient with you. Replacement transfusion, if /when indicated. patient seen/examined, SBP75, on pressors., lethargic, on the vent, labs reviewed, wbc 39,000 Patient seen/examined, case reviewed, d/w her sister at the bed side. Patient seen/examined, labs reviewed, notes reviewed. severe septic shock from infected PD catheter The high wbc is all infection related. H?H low, and may get replacement transfusion with the next HD. Prognosis remain quite poor. Patient seen/examined, extubated, now on V Mask. labs reviewed. patient seen/examined, resting in bed, still some what lethargic . labs reviewed. Patient seen/examined, resting in bed., some difficulty with breathing./ lethargic. patient seen/examined, resting in bed, looked much better labs reviewed, and fair over all. Patient seen/examined, resting in bed, labs reviewed, case d/w her. Patient seen/examined, resting in bed on BIPAP., labs reviewed. patient seen/examined, resting in bed, on Bipap.labs reviewed, fairly stable. Patient seen today, resting in bed, labs reviewed, H/H low, and transfusion already ordered. Patient seen/examined, resting in bed, transferred back to the unit, due to resp failure. She is now on venting mask. had blood replacement done. Patient seen/examined in the ICU.labs reviewed. patient intubated this am. patient resting in bed.no new issues. Patient seen/examined in the ICU, on vent,Not readily responsive. patient seen, resting in bed, no new cbc ready.will order for today. Patient seen, resting in vent, labs reviewed.notes reviewed also. patient seen/examined, resting on vent, had HD yesterday, and today., labs reviewed. Patient seen, resting in bed, labs reviewed.fairly stable labs, except the wbc. Patient seen/examined, rtesting in bed on the vent.Labs reviewed, wbc still elevated, Hgb dropped slightly. Patient seen/examined, labs reviewed, hgb 7.3, if 7.0 or less, will replace .unless otherwise indicated. Patient seen/examined, alert but lethargic.sedation drip turned down.she is s/p 1unit PRBC replacement with HD today. Objective - Constitutional Vitals: Vital Signs - 12hr 09/09/17 09/09/17 09/09/17 10:31 10:45 11:00 Temperature Pulse Rate 93 H 93 H 94 H Pulse Rate [ Throughout] Respiratory 19 20 21 Rate Respiratory Rate [ Throughout] Blood Pressure 100/45 100/45 113/50 O2 Sat by Pulse 100 98 100 Oximetry O2 Sat by Pulse Oximetry [ Anterior Bilateral Throughout] 09/09/17 09/09/17 09/09/17 11:15 11:31 11:41 Temperature Pulse Rate 94 H 93 H 92 H Pulse Rate [ Throughout] Respiratory 20 21 Rate Respiratory Rate [ Throughout] Blood Pressure 113/50 113/50 101/49 O2 Sat by Pulse 99 100 100 Oximetry O2 Sat by Pulse Oximetry [ Anterior Bilateral Throughout] 09/09/17 09/09/17 09/09/17 11:45 12:00 12:01 Temperature 98.6 F Pulse Rate 91 H 90 Pulse Rate [ Throughout] Respiratory 20 20 Rate Respiratory Rate [ Throughout] Blood Pressure 101/49 105/44 O2 Sat by Pulse 100 100 Oximetry O2 Sat by Pulse Oximetry [ Anterior Bilateral Throughout] 09/09/17 09/09/17 09/09/17 12:15 12:30 12:45 Temperature Pulse Rate 87 86 86 Pulse Rate [ Throughout] Respiratory 21 20 21 Rate Respiratory Rate [ Throughout] Blood Pressure 105/44 108/50 108/50 O2 Sat by Pulse 100 100 99 Oximetry O2 Sat by Pulse Oximetry [ Anterior Bilateral Throughout] 09/09/17 09/09/17 09/09/17 13:00 13:15 13:30 Temperature Pulse Rate 84 110 H 92 H Pulse Rate [ Throughout] Respiratory 21 16 20 Rate Respiratory Rate [ Throughout] Blood Pressure 119/59 145/67 126/57 O2 Sat by Pulse 100 100 100 Oximetry O2 Sat by Pulse Oximetry [ Anterior Bilateral Throughout] 09/09/17 09/09/17 09/09/17 13:45 14:00 14:15 Temperature Pulse Rate 89 89 83 Pulse Rate [ Throughout] Respiratory 19 20 19 Rate Respiratory Rate [ Throughout] Blood Pressure 126/57 121/57 121/57 O2 Sat by Pulse 100 100 100 Oximetry O2 Sat by Pulse Oximetry [ Anterior Bilateral Throughout] 09/09/17 09/09/17 09/09/17 14:16 14:28 14:31 Temperature Pulse Rate 84 Pulse Rate [ 84 86 Throughout] Respiratory 13 Rate Respiratory 20 20 Rate [ Throughout] Blood Pressure 115/42 O2 Sat by Pulse 100 Oximetry O2 Sat by Pulse Oximetry [ Anterior Bilateral Throughout] 09/09/17 09/09/17 09/09/17 14:45 15:00 15:15 Temperature Pulse Rate 81 82 83 Pulse Rate [ Throughout] Respiratory 20 20 17 Rate Respiratory Rate [ Throughout] Blood Pressure 115/42 126/41 126/41 O2 Sat by Pulse 100 100 100 Oximetry O2 Sat by Pulse Oximetry [ Anterior Bilateral Throughout] 09/09/17 09/09/17 09/09/17 15:30 15:45 16:00 Temperature 98.6 F 98.7 F Pulse Rate 81 84 77 Pulse Rate [ Throughout] Respiratory 20 19 20 Rate Respiratory Rate [ Throughout] Blood Pressure 131/56 120/55 124/44 O2 Sat by Pulse 100 100 100 Oximetry O2 Sat by Pulse 100 Oximetry [ Anterior Bilateral Throughout] 09/09/17 09/09/17 09/09/17 16:01 16:15 16:20 Temperature 98.7 F Pulse Rate 80 87 81 Pulse Rate [ Throughout] Respiratory 20 20 Rate Respiratory Rate [ Throughout] Blood Pressure 137/50 113/46 113/46 O2 Sat by Pulse 100 100 100 Oximetry O2 Sat by Pulse Oximetry [ Anterior Bilateral Throughout] 09/09/17 09/09/17 09/09/17 16:30 16:31 16:45 Temperature 98.5 F Pulse Rate 81 93 H 92 H Pulse Rate [ Throughout] Respiratory 20 20 20 Rate Respiratory Rate [ Throughout] Blood Pressure 136/65 113/46 144/62 O2 Sat by Pulse 100 99 100 Oximetry O2 Sat by Pulse Oximetry [ Anterior Bilateral Throughout] 09/09/17 09/09/17 09/09/17 17:00 17:01 17:15 Temperature Pulse Rate 92 H 97 H 101 H Pulse Rate [ Throughout] Respiratory 15 15 Rate Respiratory Rate [ Throughout] Blood Pressure 124/60 124/60 124/62 O2 Sat by Pulse 100 100 Oximetry O2 Sat by Pulse Oximetry [ Anterior Bilateral Throughout] 09/09/17 09/09/17 09/09/17 17:30 17:31 17:45 Temperature Pulse Rate 92 H 102 H 93 H Pulse Rate [ Throughout] Respiratory 17 17 Rate Respiratory Rate [ Throughout] Blood Pressure 124/62 104/58 106/58 O2 Sat by Pulse 100 100 Oximetry O2 Sat by Pulse Oximetry [ Anterior Bilateral Throughout] 09/09/17 09/09/17 09/09/17 18:00 18:01 18:15 Temperature Pulse Rate 100 H 106 H 103 H Pulse Rate [ Throughout] Respiratory 22 Rate Respiratory Rate [ Throughout] Blood Pressure 106/58 107/84 109/63 O2 Sat by Pulse Oximetry O2 Sat by Pulse Oximetry [ Anterior Bilateral Throughout] 09/09/17 09/09/17 09/09/17 18:30 18:45 19:00 Temperature Pulse Rate 104 H 87 96 H Pulse Rate [ Throughout] Respiratory Rate Respiratory Rate [ Throughout] Blood Pressure 117/54 112/72 111/72 O2 Sat by Pulse Oximetry O2 Sat by Pulse Oximetry [ Anterior Bilateral Throughout] 09/09/17 09/09/17 09/09/17 19:15 19:20 19:31 Temperature 98.7 F 98.7 F Pulse Rate 94 H 87 Pulse Rate [ Throughout] Respiratory 17 Rate Respiratory Rate [ Throughout] Blood Pressure 99/65 126/53 O2 Sat by Pulse Oximetry O2 Sat by Pulse 100 Oximetry [ Anterior Bilateral Throughout] 09/09/17 19:55 Temperature Pulse Rate 86 Pulse Rate [ Throughout] Respiratory Rate Respiratory Rate [ Throughout] Blood Pressure 126/53 O2 Sat by Pulse 100 Oximetry O2 Sat by Pulse Oximetry [ Anterior Bilateral Throughout] General appearance: Present: severe distress - EENT Eyes: PERRL ENT: clear oral mucosa Ears: bilateral: normal - Neck Neck: supple, normal ROM - Respiratory Respiratory: bilateral: diminished (on vent.) - Breasts Breasts: deferred - Cardiovascular Rhythm: regular Heart Sounds: Present: S1 & S2. Absent: gallop, rub Extremities: pulses intact, No edema, normal color, Full ROM - Gastrointestinal General gastrointestinal: Present: soft, non-tender, non-distended, normal bowel sounds Rectal Exam: deferred - Genitourinary Female genitourinary: deferred - Integumentary Integumentary: clear, warm, dry - Labs CBC & Chem 7: 09/09/17 03:37 09/09/17 03:37 Labs: Abnormal lab results 09/03/17 09/07/17 09/08/17 Range/Units 16:55 17:07 11:52 WBC (4.5-11.0) K/mm3 RBC (3.65-5.03) M/mm3 Hgb (10.1-14.3) gm/dl Hct (30.3-42.9) % RDW (13.2-15.2) % ABG pH (7.350-7.450) pH Units ABG pO2 (80.0-90.0) mm Hg ABG Base Excess (-2.0-3.0) mmol/L ABG Hemoglobin (12.0-16.0) gm/dl Oxyhemoglobin (95.0-99.0) % Sodium (137-145) mmol/L Chloride (98-107) mmol/L Carbon Dioxide (22-30) mmol/L BUN (7-17) mg/dL Creatinine (0.7-1.2) mg/dL Glucose (65-100) mg/dL POC Glucose 220 H (70-105) Calcium (8.4-10.2) mg/dL Phosphorus (2.5-4.5) mg/dL Magnesium (1.7-2.3) mg/dL Crossmatch See Detail See Detail 09/08/17 09/09/17 09/09/17 Range/Units 17:38 00:24 03:37 WBC (4.5-11.0) K/mm3 RBC (3.65-5.03) M/mm3 Hgb (10.1-14.3) gm/dl Hct (30.3-42.9) % RDW (13.2-15.2) % ABG pH (7.350-7.450) pH Units ABG pO2 (80.0-90.0) mm Hg ABG Base Excess (-2.0-3.0) mmol/L ABG Hemoglobin (12.0-16.0) gm/dl Oxyhemoglobin (95.0-99.0) % Sodium 132 L (137-145) mmol/L Chloride 91.6 L (98-107) mmol/L Carbon Dioxide 21 L (22-30) mmol/L BUN 101 H (7-17) mg/dL Creatinine 2.6 H (0.7-1.2) mg/dL Glucose 156 H (65-100) mg/dL POC Glucose 194 H 182 H (70-105) Calcium 8.3 L (8.4-10.2) mg/dL Phosphorus 5.90 H (2.5-4.5) mg/dL Magnesium 2.60 H (1.7-2.3) mg/dL Crossmatch 09/09/17 09/09/17 09/09/17 Range/Units 03:37 05:29 12:03 WBC 33.5 H (4.5-11.0) K/mm3 RBC 2.36 L (3.65-5.03) M/mm3 Hgb 6.7 L (10.1-14.3) gm/dl Hct 20.9 L (30.3-42.9) % RDW 22.7 H (13.2-15.2) % ABG pH (7.350-7.450) pH Units ABG pO2 (80.0-90.0) mm Hg ABG Base Excess (-2.0-3.0) mmol/L ABG Hemoglobin (12.0-16.0) gm/dl Oxyhemoglobin (95.0-99.0) % Sodium (137-145) mmol/L Chloride (98-107) mmol/L Carbon Dioxide (22-30) mmol/L BUN (7-17) mg/dL Creatinine (0.7-1.2) mg/dL Glucose (65-100) mg/dL POC Glucose 168 H 143 H (70-105) Calcium (8.4-10.2) mg/dL Phosphorus (2.5-4.5) mg/dL Magnesium (1.7-2.3) mg/dL Crossmatch 09/09/17 09/09/17 Range/Units 18:05 Unknown WBC (4.5-11.0) K/mm3 RBC (3.65-5.03) M/mm3 Hgb (10.1-14.3) gm/dl Hct (30.3-42.9) % RDW (13.2-15.2) % ABG pH 7.323 L (7.350-7.450) pH Units ABG pO2 94.1 H (80.0-90.0) mm Hg ABG Base Excess -4.8 L (-2.0-3.0) mmol/L ABG Hemoglobin 8.0 L (12.0-16.0) gm/dl Oxyhemoglobin 94.9 L (95.0-99.0) % Sodium (137-145) mmol/L Chloride (98-107) mmol/L Carbon Dioxide (22-30) mmol/L BUN (7-17) mg/dL Creatinine (0.7-1.2) mg/dL Glucose (65-100) mg/dL POC Glucose 173 H (70-105) Calcium (8.4-10.2) mg/dL Phosphorus (2.5-4.5) mg/dL Magnesium (1.7-2.3) mg/dL Crossmatch
[2017-09-10] MEDS: NOVOLOG SUB-Q SCH ×4 (01:51→18:11)
[2017-09-10] MEDS: DUONEB *Not for PRN Use IH SCH ×4 (02:07→19:45)
[2017-09-10 07:38] LABS: Calcium 8.2 mg/dL (8.4-10.2); Chloride 97.9 mmol/L (98-107); Magnesium 2.3 mg/dL (1.7-2.3); Potassium 3.7 mmol/L (3.6-5.0)
--- NOTE | 2017-09-10 09:10 | Progress Note ---
Assessment and Plan - Patient Problems (1) ESRD (end stage renal disease) on dialysis Current Visit: Yes Status: Acute Plan to address problem: Continue HD on MWF and Isolated UF on TTS as tolerated. UF today. Patient is on TPN. (2) Hyperkalemia Current Visit: Yes Status: Acute Plan to address problem: Improved. (3) Anemia Current Visit: No Status: Chronic Qualifiers: Anemia type: due to chronic kidney disease Iron deficiency anemia type: I Vitamin B12 deficiency anemia type: V Folate deficiency anemia type: F Bone marrow failure anemia type: B Hemolytic anemia type: H Other causes of anemia: O Chronic kidney disease stage: on chronic dialysis Qualified Code(s ): N18.6 - End stage renal disease; D63.1 - Anemia in chronic kidney disease; Z99.2 - Dependence on renal dialysis Plan to address problem: S/p multiple units of PRBC. Last transfusion yesterday. CBC pending. Epogen on dialysis days. (4) Hypotension Current Visit: Yes Status: Chronic Qualifiers: Hypotension type: H Trimester: T Plan to address problem: On Levophed. (5) Volume overload Current Visit: Yes Status: Acute Qualifiers: Hypervolemia type: H Plan to address problem: UF as tolerated. (6) Leukocytosis Current Visit: Yes Status: Acute Qualifiers: Leukocytosis type: unspecified Qualified Code(s): D72.829 - Elevated white blood cell count, unspecified (7) Acute respiratory failure with hypoxemia Current Visit: Yes Status: Acute Plan to address problem: On the vent. (8) Sepsis Current Visit: Yes Status: Acute Qualifiers: Sepsis type: S Subjective Date of service: 09/10/17 Principal diagnosis: rectal bleeding Interval history: Patient was seen and examined at the bedside. Objective - Vital Signs Vital signs: Vital Signs - 12hr 09/09/17 09/09/17 09/09/17 21:15 21:30 21:45 Temperature Pulse Rate 86 92 H Pulse Rate [ Anterior Bilateral Throughout] Pulse Rate [ From Monitor] Pulse Rate [ Throughout] Respiratory 20 20 Rate Respiratory Rate [Anterior Bilateral Throughout] Respiratory Rate [ Generalized] Respiratory Rate [ Throughout] Blood Pressure 94/39 92/42 96/46 O2 Sat by Pulse 100 100 98 Oximetry O2 Sat by Pulse Oximetry [ Assessment] 09/09/17 09/09/17 09/09/17 22:00 22:15 22:30 Temperature Pulse Rate 84 84 84 Pulse Rate [ Anterior Bilateral Throughout] Pulse Rate [ From Monitor] Pulse Rate [ Throughout] Respiratory 17 14 20 Rate Respiratory Rate [Anterior Bilateral Throughout] Respiratory Rate [ Generalized] Respiratory Rate [ Throughout] Blood Pressure 104/38 90/42 90/42 O2 Sat by Pulse 100 100 94 Oximetry O2 Sat by Pulse Oximetry [ Assessment] 09/09/17 09/09/17 09/09/17 22:45 23:00 23:06 Temperature 99.9 F H Pulse Rate 92 H 92 H Pulse Rate [ Anterior Bilateral Throughout] Pulse Rate [ From Monitor] Pulse Rate [ Throughout] Respiratory 20 20 Rate Respiratory Rate [Anterior Bilateral Throughout] Respiratory Rate [ Generalized] Respiratory Rate [ Throughout] Blood Pressure 93/35 98/41 O2 Sat by Pulse 98 99 Oximetry O2 Sat by Pulse Oximetry [ Assessment] 09/09/17 09/09/17 09/09/17 23:15 23:20 23:30 Temperature Pulse Rate 92 H 94 H Pulse Rate [ Anterior Bilateral Throughout] Pulse Rate [ From Monitor] Pulse Rate [ Throughout] Respiratory 16 17 Rate Respiratory Rate [Anterior Bilateral Throughout] Respiratory 21 Rate [ Generalized] Respiratory Rate [ Throughout] Blood Pressure 94/36 95/41 O2 Sat by Pulse 99 100 Oximetry O2 Sat by Pulse Oximetry [ Assessment] 09/09/17 09/09/17 09/10/17 23:46 23:50 00:00 Temperature Pulse Rate 85 89 Pulse Rate [ Anterior Bilateral Throughout] Pulse Rate [ 89 From Monitor] Pulse Rate [ Throughout] Respiratory 20 21 Rate Respiratory Rate [Anterior Bilateral Throughout] Respiratory Rate [ Generalized] Respiratory Rate [ Throughout] Blood Pressure 47/29 95/39 O2 Sat by Pulse 100 100 Oximetry O2 Sat by Pulse 100 Oximetry [ Assessment] 09/10/17 09/10/17 09/10/17 00:16 00:30 00:46 Temperature Pulse Rate Pulse Rate [ Anterior Bilateral Throughout] Pulse Rate [ From Monitor] Pulse Rate [ Throughout] Respiratory Rate Respiratory Rate [Anterior Bilateral Throughout] Respiratory Rate [ Generalized] Respiratory Rate [ Throughout] Blood Pressure 107/44 107/44 107/44 O2 Sat by Pulse 100 89 100 Oximetry O2 Sat by Pulse Oximetry [ Assessment] 09/10/17 09/10/17 09/10/17 01:00 01:16 01:30 Temperature Pulse Rate 104 H 91 H Pulse Rate [ Anterior Bilateral Throughout] Pulse Rate [ From Monitor] Pulse Rate [ Throughout] Respiratory 19 16 Rate Respiratory Rate [Anterior Bilateral Throughout] Respiratory Rate [ Generalized] Respiratory Rate [ Throughout] Blood Pressure 98/41 86/57 104/44 O2 Sat by Pulse 99 100 100 Oximetry O2 Sat by Pulse Oximetry [ Assessment] 09/10/17 09/10/17 09/10/17 01:46 02:00 02:08 Temperature Pulse Rate 99 H 91 H Pulse Rate [ Anterior Bilateral Throughout] Pulse Rate [ From Monitor] Pulse Rate [ 92 H Throughout] Respiratory 13 24 Rate Respiratory Rate [Anterior Bilateral Throughout] Respiratory Rate [ Generalized] Respiratory 20 Rate [ Throughout] Blood Pressure 105/50 101/46 O2 Sat by Pulse 100 100 Oximetry O2 Sat by Pulse Oximetry [ Assessment] 09/10/17 09/10/17 09/10/17 02:16 02:21 02:30 Temperature Pulse Rate 100 H 95 H Pulse Rate [ Anterior Bilateral Throughout] Pulse Rate [ From Monitor] Pulse Rate [ 94 H Throughout] Respiratory 12 11 L Rate Respiratory Rate [Anterior Bilateral Throughout] Respiratory Rate [ Generalized] Respiratory 20 Rate [ Throughout] Blood Pressure 121/86 121/86 O2 Sat by Pulse 100 100 Oximetry O2 Sat by Pulse Oximetry [ Assessment] 09/10/17 09/10/17 09/10/17 02:46 03:00 03:15 Temperature Pulse Rate 93 H 92 H 93 H Pulse Rate [ Anterior Bilateral Throughout] Pulse Rate [ From Monitor] Pulse Rate [ Throughout] Respiratory 17 20 12 Rate Respiratory Rate [Anterior Bilateral Throughout] Respiratory Rate [ Generalized] Respiratory Rate [ Throughout] Blood Pressure 86/54 86/54 91/50 O2 Sat by Pulse 100 100 100 Oximetry O2 Sat by Pulse Oximetry [ Assessment] 09/10/17 09/10/17 09/10/17 03:30 03:45 03:55 Temperature 99.1 F Pulse Rate 94 H 94 H Pulse Rate [ Anterior Bilateral Throughout] Pulse Rate [ From Monitor] Pulse Rate [ Throughout] Respiratory 15 14 Rate Respiratory Rate [Anterior Bilateral Throughout] Respiratory Rate [ Generalized] Respiratory Rate [ Throughout] Blood Pressure 86/54 100/43 O2 Sat by Pulse 100 100 Oximetry O2 Sat by Pulse Oximetry [ Assessment] 09/10/17 09/10/17 09/10/17 04:00 04:15 04:30 Temperature Pulse Rate 96 H 99 H 91 H Pulse Rate [ Anterior Bilateral Throughout] Pulse Rate [ 96 H From Monitor] Pulse Rate [ Throughout] Respiratory 19 18 12 Rate Respiratory Rate [Anterior Bilateral Throughout] Respiratory Rate [ Generalized] Respiratory Rate [ Throughout] Blood Pressure 97/48 81/57 81/57 O2 Sat by Pulse 100 100 100 Oximetry O2 Sat by Pulse Oximetry [ Assessment] 09/10/17 09/10/17 09/10/17 04:45 05:00 05:09 Temperature 155 F H Pulse Rate 93 H 96 H Pulse Rate [ Anterior Bilateral Throughout] Pulse Rate [ From Monitor] Pulse Rate [ Throughout] Respiratory 13 15 Rate Respiratory Rate [Anterior Bilateral Throughout] Respiratory Rate [ Generalized] Respiratory Rate [ Throughout] Blood Pressure 91/51 93/41 O2 Sat by Pulse 100 100 Oximetry O2 Sat by Pulse Oximetry [ Assessment] 09/10/17 09/10/17 09/10/17 05:15 05:30 05:45 Temperature Pulse Rate 92 H 91 H 95 H Pulse Rate [ Anterior Bilateral Throughout] Pulse Rate [ From Monitor] Pulse Rate [ Throughout] Respiratory 14 13 14 Rate Respiratory Rate [Anterior Bilateral Throughout] Respiratory Rate [ Generalized] Respiratory Rate [ Throughout] Blood Pressure 81/45 93/51 96/46 O2 Sat by Pulse 100 100 100 Oximetry O2 Sat by Pulse Oximetry [ Assessment] 09/10/17 09/10/17 09/10/17 06:00 06:15 06:30 Temperature Pulse Rate 96 H 93 H 94 H Pulse Rate [ Anterior Bilateral Throughout] Pulse Rate [ From Monitor] Pulse Rate [ Throughout] Respiratory 14 18 13 Rate Respiratory Rate [Anterior Bilateral Throughout] Respiratory Rate [ Generalized] Respiratory Rate [ Throughout] Blood Pressure 98/46 94/41 89/65 O2 Sat by Pulse 100 100 100 Oximetry O2 Sat by Pulse Oximetry [ Assessment] 09/10/17 09/10/17 09/10/17 06:45 07:00 07:15 Temperature Pulse Rate 94 H 97 H 94 H Pulse Rate [ Anterior Bilateral Throughout] Pulse Rate [ From Monitor] Pulse Rate [ Throughout] Respiratory 14 21 20 Rate Respiratory Rate [Anterior Bilateral Throughout] Respiratory Rate [ Generalized] Respiratory Rate [ Throughout] Blood Pressure 93/43 85/41 103/47 O2 Sat by Pulse 100 99 100 Oximetry O2 Sat by Pulse Oximetry [ Assessment] 09/10/17 09/10/17 09/10/17 07:30 07:45 08:00 Temperature 99.3 F Pulse Rate 91 H 96 H Pulse Rate [ Anterior Bilateral Throughout] Pulse Rate [ From Monitor] Pulse Rate [ Throughout] Respiratory 18 21 Rate Respiratory Rate [Anterior Bilateral Throughout] Respiratory Rate [ Generalized] Respiratory Rate [ Throughout] Blood Pressure 101/43 87/47 O2 Sat by Pulse 100 100 Oximetry O2 Sat by Pulse Oximetry [ Assessment] 09/10/17 09/10/17 09/10/17 08:25 08:29 08:38 Temperature Pulse Rate 98 H Pulse Rate [ 96 H 97 H Anterior Bilateral Throughout] Pulse Rate [ From Monitor] Pulse Rate [ Throughout] Respiratory Rate Respiratory 20 20 Rate [Anterior Bilateral Throughout] Respiratory Rate [ Generalized] Respiratory Rate [ Throughout] Blood Pressure 96/45 O2 Sat by Pulse 100 Oximetry O2 Sat by Pulse Oximetry [ Assessment] - General Appearance General appearance: well-developed, appears stated age, obese, other (trached, on vent, FiO2 30%) EENT: ATNC, PERRL Neck: supple Respiratory: Present: Clear to Ascultation Cardiology: regular, S1S2, no murmurs Gastrointestinal: normoactive bowel sounds, no tenderness, obese, other (PEG tube noted) Integumentary: no rash, warm and dry Neurologic: other (alert, grimaces) Musculoskeletal: other (2+ edema noted) - Lab 09/09/17 03:37 09/10/17 07:00 Most recent lab results ABG pH 7.323 pH Units (7.350-7.450) L 09/09/17 Unknown ABG pCO2 41.1 mm Hg 09/09/17 Unknown ABG pO2 94.1 mm Hg (80.0-90.0) H 09/09/17 Unknown ABG HCO3 20.9 mmol/L (20.0-26.0) 09/09/17 Unknown ABG O2 Saturation 97.2 % (95.0-99.0) 09/09/17 Unknown Calcium 8.2 mg/dL (8.4-10.2) L 09/10/17 07:00 Phosphorus 4.00 mg/dL (2.5-4.5) D 09/10/17 07:00 Magnesium 2.30 mg/dL (1.7-2.3) 09/10/17 07:00
[2017-09-10] MEDS ORDERED: NACL 0.9% 100 ML IV PRN (09:14)
--- NOTE | 2017-09-10 09:49 | Progress Note ---
Assessment and Plan 62 y/o female originally admitted with hypotension, now back to ICU secondary to worsening hypotension, concern for sepsis, with acute respiratory failure post-op from ex-lap for abdominal distention and possible ileus, now back from OR after worsening respiratory failure, requiring re-intubation and wash out of abdomen 1. Now that trached, next step would be LTACH, However, suggest that LTACH be firmly aware of abdominal issues and have surgery there that is willing to follow. 2. HD per renal 3. Continue PSV trials as tolerated. Rest on rate while on HD 4. Abx therapy as previously ordered per ID. CT is stable of abdomen 5. Wean levo for MAPS >60, have not been able to come off as she drops immediately. Will add vasopressin today and attempt to wean levophed. Acidemia could be playing a role. BP has worsened off steroids but would was not healing. 6. Steroids stopped 7. Spoke with ID and surgery, I have ordered GI consultation given concern for GI Bleed outside of anything related to surgery. They have seen patient. She is not a candidate for endoscopy at this time. 8. CBC ordered but has not been completed yet. Will speak with nursing. Overall prognosis is guarded to poor CCT 31 Subjective Date of service: 09/10/17 Principal diagnosis: rectal bleeding Interval history: No acute events. Successful trach on yesterday. Surgery at the bedside now. Objective Vital Signs - 12hr 09/09/17 09/09/17 09/09/17 22:00 22:15 22:30 Temperature Pulse Rate 84 84 84 Pulse Rate [ Anterior Bilateral Throughout] Pulse Rate [ From Monitor] Pulse Rate [ Throughout] Respiratory 17 14 20 Rate Respiratory Rate [Anterior Bilateral Throughout] Respiratory Rate [ Generalized] Respiratory Rate [ Throughout] Blood Pressure 104/38 90/42 90/42 O2 Sat by Pulse 100 100 94 Oximetry O2 Sat by Pulse Oximetry [ Assessment] 09/09/17 09/09/17 09/09/17 22:45 23:00 23:06 Temperature 99.9 F H Pulse Rate 92 H 92 H Pulse Rate [ Anterior Bilateral Throughout] Pulse Rate [ From Monitor] Pulse Rate [ Throughout] Respiratory 20 20 Rate Respiratory Rate [Anterior Bilateral Throughout] Respiratory Rate [ Generalized] Respiratory Rate [ Throughout] Blood Pressure 93/35 98/41 O2 Sat by Pulse 98 99 Oximetry O2 Sat by Pulse Oximetry [ Assessment] 1009/09/17 09/09/17 23:15 23:20 23:30 Temperature Pulse Rate 92 H 94 H Pulse Rate [ Anterior Bilateral Throughout] Pulse Rate [ From Monitor] Pulse Rate [ Throughout] Respiratory 16 17 Rate Respiratory Rate [Anterior Bilateral Throughout] Respiratory 21 Rate [ Generalized] Respiratory Rate [ Throughout] Blood Pressure 94/36 95/41 O2 Sat by Pulse 99 100 Oximetry O2 Sat by Pulse Oximetry [ Assessment] 09/09/17 09/09/17 09/10/17 23:46 23:50 00:00 Temperature Pulse Rate 85 89 Pulse Rate [ Anterior Bilateral Throughout] Pulse Rate [ 89 From Monitor] Pulse Rate [ Throughout] Respiratory 20 21 Rate Respiratory Rate [Anterior Bilateral Throughout] Respiratory Rate [ Generalized] Respiratory Rate [ Throughout] Blood Pressure 47/29 95/39 O2 Sat by Pulse 100 100 Oximetry O2 Sat by Pulse 100 Oximetry [ Assessment] 09/10/17 09/10/17 09/10/17 00:16 00:30 00:46 Temperature Pulse Rate Pulse Rate [ Anterior Bilateral Throughout] Pulse Rate [ From Monitor] Pulse Rate [ Throughout] Respiratory Rate Respiratory Rate [Anterior Bilateral Throughout] Respiratory Rate [ Generalized] Respiratory Rate [ Throughout] Blood Pressure 107/44 107/44 107/44 O2 Sat by Pulse 100 89 100 Oximetry O2 Sat by Pulse Oximetry [ Assessment] 09/10/17 09/10/17 09/10/17 01:00 01:16 01:30 Temperature Pulse Rate 104 H 91 H Pulse Rate [ Anterior Bilateral Throughout] Pulse Rate [ From Monitor] Pulse Rate [ Throughout] Respiratory 19 16 Rate Respiratory Rate [Anterior Bilateral Throughout] Respiratory Rate [ Generalized] Respiratory Rate [ Throughout] Blood Pressure 98/41 86/57 104/44 O2 Sat by Pulse 99 100 100 Oximetry O2 Sat by Pulse Oximetry [ Assessment] 09/10/17 09/10/17 09/10/17 01:46 02:00 02:08 Temperature Pulse Rate 99 H 91 H Pulse Rate [ Anterior Bilateral Throughout] Pulse Rate [ From Monitor] Pulse Rate [ 92 H Throughout] Respiratory 13 24 Rate Respiratory Rate [Anterior Bilateral Throughout] Respiratory Rate [ Generalized] Respiratory 20 Rate [ Throughout] Blood Pressure 105/50 101/46 O2 Sat by Pulse 100 100 Oximetry O2 Sat by Pulse Oximetry [ Assessment] 09/10/17 09/10/17 09/10/17 02:16 02:21 02:30 Temperature Pulse Rate 100 H 95 H Pulse Rate [ Anterior Bilateral Throughout] Pulse Rate [ From Monitor] Pulse Rate [ 94 H Throughout] Respiratory 12 11 L Rate Respiratory Rate [Anterior Bilateral Throughout] Respiratory Rate [ Generalized] Respiratory 20 Rate [ Throughout] Blood Pressure 121/86 121/86 O2 Sat by Pulse 100 100 Oximetry O2 Sat by Pulse Oximetry [ Assessment] 09/10/17 09/10/17 09/10/17 02:46 03:00 03:15 Temperature Pulse Rate 93 H 92 H 93 H Pulse Rate [ Anterior Bilateral Throughout] Pulse Rate [ From Monitor] Pulse Rate [ Throughout] Respiratory 17 20 12 Rate Respiratory Rate [Anterior Bilateral Throughout] Respiratory Rate [ Generalized] Respiratory Rate [ Throughout] Blood Pressure 86/54 86/54 91/50 O2 Sat by Pulse 100 100 100 Oximetry O2 Sat by Pulse Oximetry [ Assessment] 09/10/17 09/10/17 09/10/17 03:30 03:45 03:55 Temperature 99.1 F Pulse Rate 94 H 94 H Pulse Rate [ Anterior Bilateral Throughout] Pulse Rate [ From Monitor] Pulse Rate [ Throughout] Respiratory 15 14 Rate Respiratory Rate [Anterior Bilateral Throughout] Respiratory Rate [ Generalized] Respiratory Rate [ Throughout] Blood Pressure 86/54 100/43 O2 Sat by Pulse 100 100 Oximetry O2 Sat by Pulse Oximetry [ Assessment] 09/10/17 09/10/17 09/10/17 04:00 04:15 04:30 Temperature Pulse Rate 96 H 99 H 91 H Pulse Rate [ Anterior Bilateral Throughout] Pulse Rate [ 96 H From Monitor] Pulse Rate [ Throughout] Respiratory 19 18 12 Rate Respiratory Rate [Anterior Bilateral Throughout] Respiratory Rate [ Generalized] Respiratory Rate [ Throughout] Blood Pressure 97/48 81/57 81/57 O2 Sat by Pulse 100 100 100 Oximetry O2 Sat by Pulse Oximetry [ Assessment] 09/10/17 09/10/17 09/10/17 04:45 05:00 05:09 Temperature 155 F H Pulse Rate 93 H 96 H Pulse Rate [ Anterior Bilateral Throughout] Pulse Rate [ From Monitor] Pulse Rate [ Throughout] Respiratory 13 15 Rate Respiratory Rate [Anterior Bilateral Throughout] Respiratory Rate [ Generalized] Respiratory Rate [ Throughout] Blood Pressure 91/51 93/41 O2 Sat by Pulse 100 100 Oximetry O2 Sat by Pulse Oximetry [ Assessment] 09/10/17 09/10/17 09/10/17 05:15 05:30 05:45 Temperature Pulse Rate 92 H 91 H 95 H Pulse Rate [ Anterior Bilateral Throughout] Pulse Rate [ From Monitor] Pulse Rate [ Throughout] Respiratory 14 13 14 Rate Respiratory Rate [Anterior Bilateral Throughout] Respiratory Rate [ Generalized] Respiratory Rate [ Throughout] Blood Pressure 81/45 93/51 96/46 O2 Sat by Pulse 100 100 100 Oximetry O2 Sat by Pulse Oximetry [ Assessment] 09/10/17 09/10/17 09/10/17 06:00 06:15 06:30 Temperature Pulse Rate 96 H 93 H 94 H Pulse Rate [ Anterior Bilateral Throughout] Pulse Rate [ From Monitor] Pulse Rate [ Throughout] Respiratory 14 18 13 Rate Respiratory Rate [Anterior Bilateral Throughout] Respiratory Rate [ Generalized] Respiratory Rate [ Throughout] Blood Pressure 98/46 94/41 89/65 O2 Sat by Pulse 100 100 100 Oximetry O2 Sat by Pulse Oximetry [ Assessment] 09/10/17 09/10/17 09/10/17 06:45 07:00 07:15 Temperature Pulse Rate 94 H 97 H 94 H Pulse Rate [ Anterior Bilateral Throughout] Pulse Rate [ From Monitor] Pulse Rate [ Throughout] Respiratory 14 21 20 Rate Respiratory Rate [Anterior Bilateral Throughout] Respiratory Rate [ Generalized] Respiratory Rate [ Throughout] Blood Pressure 93/43 85/41 103/47 O2 Sat by Pulse 100 99 100 Oximetry O2 Sat by Pulse Oximetry [ Assessment] 09/10/17 09/10/17 09/10/17 07:30 07:45 08:00 Temperature 99.3 F Pulse Rate 91 H 96 H Pulse Rate [ Anterior Bilateral Throughout] Pulse Rate [ From Monitor] Pulse Rate [ Throughout] Respiratory 18 21 Rate Respiratory Rate [Anterior Bilateral Throughout] Respiratory Rate [ Generalized] Respiratory Rate [ Throughout] Blood Pressure 101/43 87/47 O2 Sat by Pulse 100 100 Oximetry O2 Sat by Pulse Oximetry [ Assessment] 09/10/17 09/10/17 09/10/17 08:25 08:29 08:38 Temperature Pulse Rate 98 H Pulse Rate [ 96 H 97 H Anterior Bilateral Throughout] Pulse Rate [ From Monitor] Pulse Rate [ Throughout] Respiratory Rate Respiratory 20 20 Rate [Anterior Bilateral Throughout] Respiratory Rate [ Generalized] Respiratory Rate [ Throughout] Blood Pressure 96/45 O2 Sat by Pulse 100 Oximetry O2 Sat by Pulse Oximetry [ Assessment] Constitutional: other (critically ill on vent, obese) Eyes: non-icteric ENT: oropharynx moist, other (NGT) Neck: supple, no lymphadenopathy, other (trach in place, midline, clean dry and intact) Effort: mildly labored Ascultation: Bilateral: diminished breath sounds Cardiovascular: regular rate and rhythm Gastrointestinal: absent bowel sounds, non-tender, other (abdominal incision with new dressing noted, obese) Integumentary: normal Extremities: no cyanosis, pink and warm, edema (3+ bilateral LE edema) Neurologic: non-focal exam, pupils equal and round, other (somnolent) Psychiatric: mood appropriate, affect normal CBC and BMP: 09/09/17 03:37 09/10/17 07:00 ABG, PT/INR, D-dimer: ABG POC ABG pH 7.335 (7.35-7.45) L 08/30/17 03:31 ABG pH 7.323 pH Units (7.350-7.450) L 09/09/17 Unknown POC ABG pCO2 44.1 (35-45) 08/30/17 03:31 ABG pCO2 41.1 mm Hg 09/09/17 Unknown POC ABG pO2 117 (80-105) H 08/30/17 03:31 ABG pO2 94.1 mm Hg (80.0-90.0) H 09/09/17 Unknown POC ABG HCO3 23.5 08/30/17 03:31 POC ABG Total CO2 25 08/30/17 03:31 POC ABG O2 Sat 98 08/30/17 03:31 ABG O2 Saturation 97.2 % (95.0-99.0) 09/09/17 Unknown PT/INR, D-dimer PT 15.1 Sec. (12.2-14.9) H 08/31/17 18:15 INR 1.13 (0.87-1.13) 08/31/17 18:15 Abnormal lab findings: Abnormal Labs 08/08/17 08/08/17 08/09/17 21:23 21:31 11:19 WBC 15.7 H RBC 2.93 L Hgb 8.7 L Hct 26.8 L MCV MCH RDW 19.2 H Plt Count Lymph % (Auto) [place] % (Auto) [place] # Seg Neutrophils % Seg Neuts % (Manual) Lymphocytes % (Manual) Monocytes % (Manual) Nucleated RBC % Seg Neutrophils # Seg Neutrophils # Man Lymphocytes # (Manual) Monocytes # (Manual) Eosinophils # (Manual) Basophils # (Manual) PT INR POC ABG pH 7.490 H ABG pH POC ABG pCO2 POC ABG pO2 122 H ABG pO2 ABG O2 Saturation ABG Base Excess ABG Hemoglobin Oxyhemoglobin Sodium Potassium Chloride Carbon Dioxide BUN Creatinine Glucose POC Glucose Calcium Phosphorus Magnesium AST ALT Alkaline Phosphatase Troponin T 0.133 H* C-Reactive Protein Total Protein Albumin Triglycerides HDL Cholesterol 26 L Miscellaneous Test Crossmatch 08/09/17 08/10/17 08/10/17 13:25 04:45 04:45 WBC 15.5 H RBC 2.97 L Hgb 8.9 L Hct 27.0 L MCV MCH RDW 19.2 H Plt Count Lymph % (Auto) [place] % (Auto) [place] # Seg Neutrophils % Seg Neuts % (Manual) 73.0 H Lymphocytes % (Manual) 7.0 L Monocytes % (Manual) 14.0 H Nucleated RBC % Seg Neutrophils # Seg Neutrophils # Man 11.3 H Lymphocytes # (Manual) 1.1 L Monocytes # (Manual) 2.2 H Eosinophils # (Manual) Basophils # (Manual) 0.2 H PT INR POC ABG pH ABG pH POC ABG pCO2 POC ABG pO2 ABG pO2 ABG O2 Saturation ABG Base Excess ABG Hemoglobin Oxyhemoglobin Sodium Potassium 3.3 L Chloride 97.3 L Carbon Dioxide 21 L BUN 23 H Creatinine 6.5 H Glucose POC Glucose Calcium 7.3 L Phosphorus Magnesium AST ALT Alkaline Phosphatase 138 H Troponin T 0.132 H* C-Reactive Protein Total Protein 4.8 L Albumin 1.4 L Triglycerides HDL Cholesterol Miscellaneous Test Crossmatch 08/11/17 08/11/17 08/12/17 04:00 04:00 05:50 WBC 19.3 H RBC 3.10 L Hgb 9.5 L Hct 28.2 L MCV MCH RDW 19.2 H Plt Count 463 H Lymph % (Auto) 7.[address] [place] % (Auto) 14.[address] [place] # 2.8 H Seg Neutrophils % 77.0 H Seg Neuts % (Manual) Lymphocytes % (Manual) Monocytes % (Manual) Nucleated RBC % Seg Neutrophils # 14.8 H Seg Neutrophils # Man Lymphocytes # (Manual) Monocytes # (Manual) Eosinophils # (Manual) Basophils # (Manual) PT INR POC ABG pH ABG pH POC ABG pCO2 POC ABG pO2 ABG pO2 ABG O2 Saturation ABG Base Excess ABG Hemoglobin Oxyhemoglobin Sodium 136 L 136 L Potassium 3.3 L Chloride 96.3 L 96.6 L Carbon Dioxide BUN 26 H 26 H Creatinine 6.4 H 6.2 H Glucose 135 H 133 H POC Glucose Calcium 8.2 L Phosphorus Magnesium 1.30 L AST ALT Alkaline Phosphatase 139 H Troponin T C-Reactive Protein Total Protein 5.5 L Albumin 1.7 L Triglycerides HDL Cholesterol Miscellaneous Test Crossmatch 08/12/17 08/12/17 08/12/17 05:50 05:50 05:50 WBC 20.1 H RBC 3.06 L Hgb 9.3 L Hct 27.9 L MCV MCH RDW 18.4 H Plt Count 471 H Lymph % (Auto) [place] % (Auto) [place] # Seg Neutrophils % Seg Neuts % (Manual) 85.0 H Lymphocytes % (Manual) 8.0 L Monocytes % (Manual) Nucleated RBC % Seg Neutrophils # Seg Neutrophils # Man 17.1 H Lymphocytes # (Manual) Monocytes # (Manual) 1.0 H Eosinophils # (Manual) Basophils # (Manual) PT 15.2 H INR 1.14 H POC ABG pH ABG pH POC ABG pCO2 POC ABG pO2 ABG pO2 ABG O2 Saturation ABG Base Excess ABG Hemoglobin Oxyhemoglobin Sodium Potassium Chloride Carbon Dioxide BUN Creatinine Glucose POC Glucose Calcium Phosphorus Magnesium AST ALT Alkaline Phosphatase Troponin T C-Reactive Protein 28.90 H Total Protein Albumin Triglycerides HDL Cholesterol Miscellaneous Test Crossmatch 08/12/17 08/13/17 08/13/17 16:23 06:14 06:14 WBC 21.8 H RBC 3.11 L Hgb 9.4 L Hct 28.2 L MCV MCH RDW 18.2 H Plt Count 492 H Lymph % (Auto) [place] % (Auto) [place] # Seg Neutrophils % Seg Neuts % (Manual) 73.0 H Lymphocytes % (Manual) 2.0 L Monocytes % (Manual) 15 H Nucleated RBC % Seg Neutrophils # Seg Neutrophils # Man 15.9 H Lymphocytes # (Manual) 0.4 L Monocytes # (Manual) 2.4 H Eosinophils # (Manual) Basophils # (Manual) PT INR POC ABG pH ABG pH POC ABG pCO2 POC ABG pO2 ABG pO2 ABG O2 Saturation ABG Base Excess ABG Hemoglobin Oxyhemoglobin Sodium Potassium Chloride 96.2 L Carbon Dioxide BUN 28 H Creatinine 5.6 H Glucose 114 H POC Glucose Calcium Phosphorus Magnesium AST ALT Alkaline Phosphatase Troponin T C-Reactive Protein 26.10 H Total Protein Albumin Triglycerides HDL Cholesterol Miscellaneous Test Crossmatch 08/13/17 08/14/17 08/14/17 16:39 04:00 04:00 WBC 22.1 H RBC 3.25 L Hgb 9.9 L Hct 29.5 L MCV MCH RDW 17.9 H Plt Count 525 H Lymph % (Auto) [place] % (Auto) [place] # Seg Neutrophils % Seg Neuts % (Manual) 74.0 H Lymphocytes % (Manual) 8.0 L Monocytes % (Manual) 12.0 H Nucleated RBC % Seg Neutrophils # Seg Neutrophils # Man 16.4 H Lymphocytes # (Manual) Monocytes # (Manual) 2.7 H Eosinophils # (Manual) Basophils # (Manual) PT INR POC ABG pH ABG pH POC ABG pCO2 POC ABG pO2 ABG pO2 ABG O2 Saturation ABG Base Excess ABG Hemoglobin Oxyhemoglobin Sodium 134 L Potassium 3.3 L Chloride 93.3 L Carbon Dioxide BUN 27 H Creatinine 6.0 H Glucose 152 H POC Glucose 151 H Calcium Phosphorus Magnesium AST ALT Alkaline Phosphatase Troponin T C-Reactive Protein Total Protein Albumin Triglycerides HDL Cholesterol Miscellaneous Test Crossmatch 08/15/17 08/16/17 08/16/17 09:10 09:50 09:50 WBC 31.1 H RBC 3.21 L Hgb 9.6 L Hct 29.3 L MCV MCH RDW 18.1 H Plt Count 642 H Lymph % (Auto) [place] % (Auto) [place] # Seg Neutrophils % Seg Neuts % (Manual) 74.0 H Lymphocytes % (Manual) 4.0 L Monocytes % (Manual) 9.0 H Nucleated RBC % Seg Neutrophils # Seg Neutrophils # Man 23.0 H Lymphocytes # (Manual) Monocytes # (Manual) 2.8 H Eosinophils # (Manual) Basophils # (Manual) PT INR POC ABG pH ABG pH POC ABG pCO2 POC ABG pO2 ABG pO2 ABG O2 Saturation ABG Base Excess ABG Hemoglobin Oxyhemoglobin Sodium 136 L 136 L Potassium 3.5 L Chloride 97.6 L 94.9 L Carbon Dioxide BUN 27 H 28 H Creatinine 5.6 H 5.5 H Glucose 117 H 103 H POC Glucose Calcium Phosphorus Magnesium AST ALT Alkaline Phosphatase 137 H Troponin T C-Reactive Protein Total Protein 5.4 L Albumin 1.5 L Triglycerides HDL Cholesterol Miscellaneous Test Crossmatch 08/16/17 08/17/17 08/17/17 09:50 05:00 06:26 WBC RBC Hgb Hct MCV MCH RDW Plt Count Lymph % (Auto) [place] % (Auto) [place] # Seg Neutrophils % Seg Neuts % (Manual) Lymphocytes % (Manual) Monocytes % (Manual) Nucleated RBC % Seg Neutrophils # Seg Neutrophils # Man Lymphocytes # (Manual) Monocytes # (Manual) Eosinophils # (Manual) Basophils # (Manual) PT INR POC ABG pH ABG pH POC ABG pCO2 POC ABG pO2 ABG pO2 ABG O2 Saturation ABG Base Excess ABG Hemoglobin Oxyhemoglobin Sodium 134 L Potassium 3.0 L Chloride 97.8 L Carbon Dioxide BUN 30 H Creatinine 5.3 H Glucose 147 H POC Glucose 165 H Calcium 7.5 L Phosphorus Magnesium AST ALT Alkaline Phosphatase Troponin T C-Reactive Protein 32.30 H Total Protein Albumin Triglycerides HDL Cholesterol Miscellaneous Test Crossmatch 08/17/17 08/17/17 08/17/17 10:56 11:20 11:20 WBC 39.1 H RBC 3.10 L Hgb 9.2 L Hct 28.6 L MCV MCH RDW 18.3 H Plt Count 580 H Lymph % (Auto) [place] % (Auto) [place] # Seg Neutrophils % Seg Neuts % (Manual) 89.5 H Lymphocytes % (Manual) 3.5 L Monocytes % (Manual) Nucleated RBC % Seg Neutrophils # Seg Neutrophils # Man 35.0 H Lymphocytes # (Manual) Monocytes # (Manual) 2.5 H Eosinophils # (Manual) Basophils # (Manual) 0.2 H PT INR POC ABG pH 7.464 H ABG pH POC ABG pCO2 34.1 L POC ABG pO2 75 L ABG pO2 ABG O2 Saturation ABG Base Excess ABG Hemoglobin Oxyhemoglobin Sodium Potassium Chloride Carbon Dioxide BUN Creatinine Glucose POC Glucose Calcium Phosphorus Magnesium AST ALT Alkaline Phosphatase Troponin T C-Reactive Protein Total Protein Albumin Triglycerides HDL Cholesterol Miscellaneous Test Flexitest 1 H Crossmatch 08/17/17 08/17/17 08/17/17 11:20 16:57 20:20 WBC 34.4 H RBC 2.81 L Hgb 8.4 L Hct 26.0 L MCV MCH RDW 17.8 H Plt Count 455 H Lymph % (Auto) [place] % (Auto) [place] # Seg Neutrophils % Seg Neuts % (Manual) Lymphocytes % (Manual) 3.5 L Monocytes % (Manual) Nucleated RBC % 5.0 H Seg Neutrophils # Seg Neutrophils # Man 16.5 H Lymphocytes # (Manual) Monocytes # (Manual) 1.0 H Eosinophils # (Manual) Basophils # (Manual) PT 16.0 H INR 1.29 H POC ABG pH ABG pH POC ABG pCO2 POC ABG pO2 ABG pO2 ABG O2 Saturation ABG Base Excess ABG Hemoglobin Oxyhemoglobin Sodium 135 L Potassium 2.9 L* Chloride Carbon Dioxide 20 L BUN 32 H Creatinine 5.4 H Glucose 129 H POC Glucose Calcium 7.5 L Phosphorus Magnesium 1.50 L AST 85 H ALT Alkaline Phosphatase Troponin T C-Reactive Protein Total Protein 4.0 L D Albumin 1.6 L Triglycerides HDL Cholesterol Miscellaneous Test Crossmatch 08/17/17 08/17/17 08/18/17 20:54 23:47 04:26 WBC RBC Hgb Hct MCV MCH RDW Plt Count Lymph % (Auto) [place] % (Auto) [place] # Seg Neutrophils % Seg Neuts % (Manual) Lymphocytes % (Manual) Monocytes % (Manual) Nucleated RBC % Seg Neutrophils # Seg Neutrophils # Man Lymphocytes # (Manual) Monocytes # (Manual) Eosinophils # (Manual) Basophils # (Manual) PT INR POC ABG pH 7.557 H ABG pH POC ABG pCO2 23.1 L 29.0 L POC ABG pO2 187 H 148 H ABG pO2 ABG O2 Saturation ABG Base Excess ABG Hemoglobin Oxyhemoglobin Sodium Potassium Chloride Carbon Dioxide BUN Creatinine Glucose POC Glucose 188 H Calcium Phosphorus Magnesium AST ALT Alkaline Phosphatase Troponin T C-Reactive Protein Total Protein Albumin Triglycerides HDL Cholesterol Miscellaneous Test Crossmatch 08/18/17 08/18/17 08/18/17 05:51 11:44 17:07 WBC RBC Hgb Hct MCV MCH RDW Plt Count Lymph % (Auto) [place] % (Auto) [place] # Seg Neutrophils % Seg Neuts % (Manual) Lymphocytes % (Manual) Monocytes % (Manual) Nucleated RBC % Seg Neutrophils # Seg Neutrophils # Man Lymphocytes # (Manual) Monocytes # (Manual) Eosinophils # (Manual) Basophils # (Manual) PT INR POC ABG pH ABG pH POC ABG pCO2 POC ABG pO2 ABG pO2 ABG O2 Saturation ABG Base Excess ABG Hemoglobin Oxyhemoglobin Sodium Potassium Chloride Carbon Dioxide BUN Creatinine Glucose POC Glucose 202 H 195 H 182 H Calcium Phosphorus Magnesium AST ALT Alkaline Phosphatase Troponin T C-Reactive Protein Total Protein Albumin Triglycerides HDL Cholesterol Miscellaneous Test Crossmatch 08/18/17 08/18/17 08/18/17 23:45 Unknown Unknown WBC 39.0 H RBC 2.84 L Hgb 8.4 L Hct 26.5 L MCV MCH RDW 18.0 H Plt Count 476 H Lymph % (Auto) [place] % (Auto) [place] # Seg Neutrophils % Seg Neuts % (Manual) Lymphocytes % (Manual) 7.0 L Monocytes % (Manual) 10.0 H Nucleated RBC % 3.0 H Seg Neutrophils # Seg Neutrophils # Man 15.6 H Lymphocytes # (Manual) Monocytes # (Manual) 3.9 H Eosinophils # (Manual) Basophils # (Manual) PT INR POC ABG pH ABG pH POC ABG pCO2 POC ABG pO2 ABG pO2 ABG O2 Saturation ABG Base Excess ABG Hemoglobin Oxyhemoglobin Sodium Potassium Chloride Carbon Dioxide 19 L BUN 34 H Creatinine 5.6 H Glucose 201 H POC Glucose 163 H Calcium 7.8 L Phosphorus 1.90 L D Magnesium 1.60 L AST ALT Alkaline Phosphatase Troponin T C-Reactive Protein Total Protein Albumin Triglycerides HDL Cholesterol Miscellaneous Test Crossmatch 08/19/17 08/19/17 08/19/17 04:18 05:00 05:00 WBC 40.0 H RBC 2.46 L Hgb 7.3 L Hct 22.6 L MCV MCH RDW 18.1 H Plt Count Lymph % (Auto) [place] % (Auto) [place] # Seg Neutrophils % Seg Neuts % (Manual) Lymphocytes % (Manual) 8.0 L Monocytes % (Manual) Nucleated RBC % 2.0 H Seg Neutrophils # Seg Neutrophils # Man 16.4 H Lymphocytes # (Manual) Monocytes # (Manual) 1.2 H Eosinophils # (Manual) 1.2 H Basophils # (Manual) PT INR POC ABG pH 7.463 H ABG pH POC ABG pCO2 29.7 L POC ABG pO2 134 H ABG pO2 ABG O2 Saturation ABG Base Excess ABG Hemoglobin Oxyhemoglobin Sodium Potassium 5.1 H D Chloride Carbon Dioxide 20 L BUN 40 H Creatinine 5.3 H Glucose 128 H POC Glucose Calcium 7.8 L Phosphorus 1.90 L Magnesium AST ALT Alkaline Phosphatase Troponin T C-Reactive Protein Total Protein Albumin Triglycerides HDL Cholesterol Miscellaneous Test Crossmatch 08/19/17 08/19/17 08/19/17 05:19 07:37 09:52 WBC 45.0 H* RBC 2.50 L Hgb 7.5 L Hct 24.5 L MCV 98 H MCH RDW 18.4 H Plt Count Lymph % (Auto) [place] % (Auto) [place] # Seg Neutrophils % Seg Neuts % (Manual) 81.5 H Lymphocytes % (Manual) 4.0 L Monocytes % (Manual) Nucleated RBC % 1.0 H Seg Neutrophils # Seg Neutrophils # Man 36.7 H Lymphocytes # (Manual) Monocytes # (Manual) Eosinophils # (Manual) Basophils # (Manual) PT INR POC ABG pH ABG pH POC ABG pCO2 POC ABG pO2 ABG pO2 ABG O2 Saturation ABG Base Excess ABG Hemoglobin Oxyhemoglobin Sodium Potassium Chloride Carbon Dioxide BUN Creatinine Glucose POC Glucose 142 H Calcium Phosphorus Magnesium AST ALT Alkaline Phosphatase Troponin T C-Reactive Protein 34.20 H Total Protein Albumin Triglycerides HDL Cholesterol Miscellaneous Test Crossmatch 08/19/17 08/19/17 08/20/17 11:16 18:12 00:35 WBC RBC Hgb Hct MCV MCH RDW Plt Count Lymph % (Auto) [place] % (Auto) [place] # Seg Neutrophils % Seg Neuts % (Manual) Lymphocytes % (Manual) Monocytes % (Manual) Nucleated RBC % Seg Neutrophils # Seg Neutrophils # Man Lymphocytes # (Manual) Monocytes # (Manual) Eosinophils # (Manual) Basophils # (Manual) PT INR POC ABG pH ABG pH POC ABG pCO2 POC ABG pO2 ABG pO2 ABG O2 Saturation ABG Base Excess ABG Hemoglobin Oxyhemoglobin Sodium Potassium Chloride Carbon Dioxide BUN Creatinine Glucose POC Glucose 143 H 137 H 164 H Calcium Phosphorus Magnesium AST ALT Alkaline Phosphatase Troponin T C-Reactive Protein Total Protein Albumin Triglycerides HDL Cholesterol Miscellaneous Test Crossmatch 08/20/17 08/20/17 08/20/17 03:20 03:20 04:00 WBC 48.0 H* RBC 2.55 L Hgb 7.6 L Hct 23.4 L MCV MCH RDW 18.4 H Plt Count Lymph % (Auto) [place] % (Auto) [place] # Seg Neutrophils % Seg Neuts % (Manual) 90.0 H Lymphocytes % (Manual) 3.0 L Monocytes % (Manual) Nucleated RBC % Seg Neutrophils # Seg Neutrophils # Man 43.2 H Lymphocytes # (Manual) Monocytes # (Manual) 1.4 H Eosinophils # (Manual) 0.5 H Basophils # (Manual) PT INR POC ABG pH 7.499 H ABG pH POC ABG pCO2 29.1 L POC ABG pO2 ABG pO2 ABG O2 Saturation ABG Base Excess ABG Hemoglobin Oxyhemoglobin Sodium 135 L Potassium Chloride Carbon Dioxide BUN 28 H Creatinine 4.0 H Glucose 140 H POC Glucose Calcium 8.0 L Phosphorus 1.70 L Magnesium 1.60 L AST ALT Alkaline Phosphatase Troponin T C-Reactive Protein Total Protein Albumin Triglycerides HDL Cholesterol Miscellaneous Test Crossmatch 08/20/17 08/20/17 08/20/17 05:02 12:05 13:12 WBC RBC Hgb Hct MCV MCH RDW Plt Count Lymph % (Auto) [place] % (Auto) [place] # Seg Neutrophils % Seg Neuts % (Manual) Lymphocytes % (Manual) Monocytes % (Manual) Nucleated RBC % Seg Neutrophils # Seg Neutrophils # Man Lymphocytes # (Manual) Monocytes # (Manual) Eosinophils # (Manual) Basophils # (Manual) PT INR POC ABG pH 7.537 H ABG pH POC ABG pCO2 27.9 L POC ABG pO2 79 L ABG pO2 ABG O2 Saturation ABG Base Excess ABG Hemoglobin Oxyhemoglobin Sodium Potassium Chloride Carbon Dioxide BUN Creatinine Glucose POC Glucose 158 H 203 H Calcium Phosphorus Magnesium AST ALT Alkaline Phosphatase Troponin T C-Reactive Protein Total Protein Albumin Triglycerides HDL Cholesterol Miscellaneous Test Crossmatch 08/20/17 08/21/17 08/21/17 17:13 00:47 03:14 WBC RBC Hgb Hct MCV MCH RDW Plt Count Lymph % (Auto) [place] % (Auto) [place] # Seg Neutrophils % Seg Neuts % (Manual) Lymphocytes % (Manual) Monocytes % (Manual) Nucleated RBC % Seg Neutrophils # Seg Neutrophils # Man Lymphocytes # (Manual) Monocytes # (Manual) Eosinophils # (Manual) Basophils # (Manual) PT INR POC ABG pH 7.481 H ABG pH POC ABG pCO2 29.6 L POC ABG pO2 ABG pO2 ABG O2 Saturation ABG Base Excess ABG Hemoglobin Oxyhemoglobin Sodium Potassium Chloride Carbon Dioxide BUN Creatinine Glucose POC Glucose 188 H 109 H Calcium Phosphorus Magnesium AST ALT Alkaline Phosphatase Troponin T C-Reactive Protein Total Protein Albumin Triglycerides HDL Cholesterol Miscellaneous Test Crossmatch 08/21/17 08/21/17 08/21/17 05:05 06:50 06:50 WBC 44.7 H* RBC 2.41 L Hgb 7.1 L Hct 22.1 L MCV MCH RDW 18.3 H Plt Count Lymph % (Auto) [place] % (Auto) [place] # Seg Neutrophils % Seg Neuts % (Manual) 89.0 H Lymphocytes % (Manual) 0 L Monocytes % (Manual) Nucleated RBC % 1.0 H Seg Neutrophils # Seg Neutrophils # Man 39.8 H Lymphocytes # (Manual) 0.0 L Monocytes # (Manual) 1.3 H Eosinophils # (Manual) Basophils # (Manual) PT INR POC ABG pH ABG pH POC ABG pCO2 POC ABG pO2 ABG pO2 ABG O2 Saturation ABG Base Excess ABG Hemoglobin Oxyhemoglobin Sodium 135 L Potassium Chloride Carbon Dioxide BUN 39 H Creatinine 4.4 H Glucose 147 H POC Glucose 166 H Calcium 8.1 L Phosphorus Magnesium AST ALT < 5 L Alkaline Phosphatase 164 H Troponin T C-Reactive Protein Total Protein 4.7 L Albumin 1.4 L Triglycerides HDL Cholesterol Miscellaneous Test Crossmatch 08/21/17 08/21/17 08/21/17 08:00 12:21 17:02 WBC RBC Hgb Hct MCV MCH RDW Plt Count Lymph % (Auto) [place] % (Auto) [place] # Seg Neutrophils % Seg Neuts % (Manual) Lymphocytes % (Manual) Monocytes % (Manual) Nucleated RBC % Seg Neutrophils # Seg Neutrophils # Man Lymphocytes # (Manual) Monocytes # (Manual) Eosinophils # (Manual) Basophils # (Manual) PT INR POC ABG pH ABG pH POC ABG pCO2 POC ABG pO2 ABG pO2 ABG O2 Saturation ABG Base Excess ABG Hemoglobin Oxyhemoglobin Sodium Potassium Chloride Carbon Dioxide BUN Creatinine Glucose POC Glucose 147 H 135 H Calcium Phosphorus Magnesium AST ALT Alkaline Phosphatase Troponin T C-Reactive Protein Total Protein Albumin Triglycerides HDL Cholesterol Miscellaneous Test Crossmatch See Detail 08/21/17 08/22/17 08/22/17 23:38 03:40 03:40 WBC 42.5 H* RBC 2.88 L Hgb 8.5 L Hct 26.3 L MCV MCH RDW 17.9 H Plt Count Lymph % (Auto) [place] % (Auto) [place] # Seg Neutrophils % Seg Neuts % (Manual) Lymphocytes % (Manual) 5.0 L Monocytes % (Manual) Nucleated RBC % Seg Neutrophils # Seg Neutrophils # Man 19.6 H Lymphocytes # (Manual) Monocytes # (Manual) 2.6 H Eosinophils # (Manual) Basophils # (Manual) PT INR POC ABG pH ABG pH POC ABG pCO2 POC ABG pO2 ABG pO2 ABG O2 Saturation ABG Base Excess ABG Hemoglobin Oxyhemoglobin Sodium Potassium 3.3 L D Chloride Carbon Dioxide BUN 27 H Creatinine 2.9 H Glucose 144 H POC Glucose 251 H Calcium 8.0 L Phosphorus 2.40 L Magnesium AST ALT Alkaline Phosphatase Troponin T C-Reactive Protein Total Protein Albumin Triglycerides HDL Cholesterol Miscellaneous Test Crossmatch 08/22/17 08/22/17 08/22/17 06:37 08:50 11:25 WBC RBC Hgb Hct MCV MCH RDW Plt Count Lymph % (Auto) [place] % (Auto) [place] # Seg Neutrophils % Seg Neuts % (Manual) Lymphocytes % (Manual) Monocytes % (Manual) Nucleated RBC % Seg Neutrophils # Seg Neutrophils # Man Lymphocytes # (Manual) Monocytes # (Manual) Eosinophils # (Manual) Basophils # (Manual) PT INR POC ABG pH ABG pH POC ABG pCO2 POC ABG pO2 ABG pO2 ABG O2 Saturation ABG Base Excess ABG Hemoglobin Oxyhemoglobin Sodium Potassium Chloride Carbon Dioxide BUN Creatinine Glucose POC Glucose 152 H 175 H Calcium Phosphorus Magnesium AST ALT Alkaline Phosphatase Troponin T C-Reactive Protein Total Protein Albumin Triglycerides HDL Cholesterol Miscellaneous Test Flexitest 1 H Crossmatch 08/22/17 08/22/17 08/22/17 16:25 17:56 23:03 WBC RBC Hgb Hct MCV MCH RDW Plt Count Lymph % (Auto) [place] % (Auto) [place] # Seg Neutrophils % Seg Neuts % (Manual) Lymphocytes % (Manual) Monocytes % (Manual) Nucleated RBC % Seg Neutrophils # Seg Neutrophils # Man Lymphocytes # (Manual) Monocytes # (Manual) Eosinophils # (Manual) Basophils # (Manual) PT INR POC ABG pH ABG pH POC ABG pCO2 POC ABG pO2 ABG pO2 ABG O2 Saturation ABG Base Excess ABG Hemoglobin Oxyhemoglobin Sodium Potassium Chloride Carbon Dioxide BUN Creatinine Glucose POC Glucose 232 H 192 H Calcium Phosphorus Magnesium AST ALT Alkaline Phosphatase Troponin T C-Reactive Protein 30.70 H Total Protein Albumin Triglycerides HDL Cholesterol Miscellaneous Test Crossmatch 08/23/17 08/23/17 08/23/17 05:36 08:50 12:14 WBC RBC Hgb Hct MCV MCH RDW Plt Count Lymph % (Auto) [place] % (Auto) [place] # Seg Neutrophils % Seg Neuts % (Manual) Lymphocytes % (Manual) Monocytes % (Manual) Nucleated RBC % Seg Neutrophils # Seg Neutrophils # Man Lymphocytes # (Manual) Monocytes # (Manual) Eosinophils # (Manual) Basophils # (Manual) PT INR POC ABG pH ABG pH POC ABG pCO2 POC ABG pO2 ABG pO2 ABG O2 Saturation ABG Base Excess ABG Hemoglobin Oxyhemoglobin Sodium Potassium Chloride 107.1 H Carbon Dioxide BUN 49 H Creatinine 3.3 H Glucose 172 H POC Glucose 206 H 238 H Calcium Phosphorus Magnesium 2.40 H AST ALT Alkaline Phosphatase Troponin T C-Reactive Protein Total Protein Albumin Triglycerides HDL Cholesterol Miscellaneous Test Crossmatch 08/23/17 08/23/17 08/24/17 17:21 23:13 04:00 WBC 34.2 H RBC 2.86 L Hgb 8.4 L Hct 25.9 L MCV MCH RDW 17.9 H Plt Count Lymph % (Auto) [place] % (Auto) [place] # Seg Neutrophils % Seg Neuts % (Manual) 85.0 H Lymphocytes % (Manual) 0.5 L Monocytes % (Manual) Nucleated RBC % 1.0 H Seg Neutrophils # Seg Neutrophils # Man 29.1 H Lymphocytes # (Manual) 0.2 L Monocytes # (Manual) 2.4 H Eosinophils # (Manual) Basophils # (Manual) PT INR POC ABG pH ABG pH POC ABG pCO2 POC ABG pO2 ABG pO2 ABG O2 Saturation ABG Base Excess ABG Hemoglobin Oxyhemoglobin Sodium Potassium Chloride Carbon Dioxide BUN Creatinine Glucose POC Glucose 226 H 183 H Calcium Phosphorus Magnesium AST ALT Alkaline Phosphatase Troponin T C-Reactive Protein Total Protein Albumin Triglycerides HDL Cholesterol Miscellaneous Test Crossmatch 08/24/17 08/24/17 08/24/17 05:06 09:30 12:04 WBC RBC Hgb Hct MCV MCH RDW Plt Count Lymph % (Auto) [place] % (Auto) [place] # Seg Neutrophils % Seg Neuts % (Manual) Lymphocytes % (Manual) Monocytes % (Manual) Nucleated RBC % Seg Neutrophils # Seg Neutrophils # Man Lymphocytes # (Manual) Monocytes # (Manual) Eosinophils # (Manual) Basophils # (Manual) PT INR POC ABG pH ABG pH POC ABG pCO2 POC ABG pO2 ABG pO2 ABG O2 Saturation ABG Base Excess ABG Hemoglobin Oxyhemoglobin Sodium Potassium Chloride Carbon Dioxide BUN 46 H Creatinine 2.5 H Glucose 176 H POC Glucose 201 H 181 H Calcium Phosphorus Magnesium AST ALT Alkaline Phosphatase Troponin T C-Reactive Protein Total Protein Albumin Triglycerides HDL Cholesterol Miscellaneous Test Crossmatch 08/24/17 08/24/17 08/25/17 18:04 23:05 05:05 WBC RBC Hgb Hct MCV MCH RDW Plt Count Lymph % (Auto) [place] % (Auto) [place] # Seg Neutrophils % Seg Neuts % (Manual) Lymphocytes % (Manual) Monocytes % (Manual) Nucleated RBC % Seg Neutrophils # Seg Neutrophils # Man Lymphocytes # (Manual) Monocytes # (Manual) Eosinophils # (Manual) Basophils # (Manual) PT INR POC ABG pH ABG pH POC ABG pCO2 POC ABG pO2 ABG pO2 ABG O2 Saturation ABG Base Excess ABG Hemoglobin Oxyhemoglobin Sodium Potassium Chloride Carbon Dioxide BUN Creatinine Glucose POC Glucose 189 H 175 H 190 H Calcium Phosphorus Magnesium AST ALT Alkaline Phosphatase Troponin T C-Reactive Protein Total Protein Albumin Triglycerides HDL Cholesterol Miscellaneous Test Crossmatch 08/25/17 08/25/17 08/26/17 07:02 11:53 05:30 WBC 33.5 H RBC 2.47 L Hgb 7.3 L Hct 23.0 L MCV MCH RDW 21.3 H Plt Count Lymph % (Auto) [place] % (Auto) [place] # Seg Neutrophils % Seg Neuts % (Manual) 92.0 H Lymphocytes % (Manual) 1.0 L Monocytes % (Manual) Nucleated RBC % Seg Neutrophils # Seg Neutrophils # Man 30.8 H Lymphocytes # (Manual) 0.3 L Monocytes # (Manual) Eosinophils # (Manual) Basophils # (Manual) PT INR POC ABG pH ABG pH POC ABG pCO2 POC ABG pO2 ABG pO2 ABG O2 Saturation ABG Base Excess ABG Hemoglobin Oxyhemoglobin Sodium Potassium Chloride Carbon Dioxide BUN 32 H Creatinine 5.0 H D Glucose 117 H POC Glucose 191 H Calcium 8.0 L Phosphorus Magnesium AST ALT Alkaline Phosphatase Troponin T C-Reactive Protein Total Protein Albumin Triglycerides HDL Cholesterol Miscellaneous Test Crossmatch 08/26/17 08/26/17 08/26/17 05:30 06:44 13:26 WBC RBC Hgb Hct MCV MCH RDW Plt Count Lymph % (Auto) [place] % (Auto) [place] # Seg Neutrophils % Seg Neuts % (Manual) Lymphocytes % (Manual) Monocytes % (Manual) Nucleated RBC % Seg Neutrophils # Seg Neutrophils # Man Lymphocytes # (Manual) Monocytes # (Manual) Eosinophils # (Manual) Basophils # (Manual) PT INR POC ABG pH ABG pH POC ABG pCO2 POC ABG pO2 ABG pO2 ABG O2 Saturation ABG Base Excess ABG Hemoglobin Oxyhemoglobin Sodium Potassium 5.2 H Chloride Carbon Dioxide BUN 80 H Creatinine 3.4 H Glucose 193 H POC Glucose 232 H 207 H Calcium 8.3 L Phosphorus 6.80 H D Magnesium 2.60 H AST 135 H ALT Alkaline Phosphatase 211 H Troponin T C-Reactive Protein Total Protein 4.8 L Albumin 2.0 L Triglycerides HDL Cholesterol Miscellaneous Test Crossmatch 08/27/17 08/27/17 08/27/17 01:08 06:20 06:20 WBC 35.0 H RBC 2.75 L Hgb 8.4 L Hct 25.1 L MCV MCH RDW 21.8 H Plt Count Lymph % (Auto) [place] % (Auto) [place] # Seg Neutrophils % Seg Neuts % (Manual) Lymphocytes % (Manual) 4.5 L Monocytes % (Manual) Nucleated RBC % Seg Neutrophils # Seg Neutrophils # Man 31.9 H Lymphocytes # (Manual) Monocytes # (Manual) 1.2 H Eosinophils # (Manual) Basophils # (Manual) PT INR POC ABG pH ABG pH POC ABG pCO2 POC ABG pO2 ABG pO2 ABG O2 Saturation ABG Base Excess ABG Hemoglobin Oxyhemoglobin Sodium Potassium Chloride Carbon Dioxide BUN 61 H Creatinine 2.6 H Glucose 184 H POC Glucose 146 H Calcium Phosphorus 4.90 H D Magnesium AST ALT Alkaline Phosphatase Troponin T C-Reactive Protein Total Protein Albumin Triglycerides HDL Cholesterol Miscellaneous Test Crossmatch 08/27/17 08/27/17 08/27/17 07:01 09:17 12:52 WBC RBC Hgb Hct MCV MCH RDW Plt Count Lymph % (Auto) [place] % (Auto) [place] # Seg Neutrophils % Seg Neuts % (Manual) Lymphocytes % (Manual) Monocytes % (Manual) Nucleated RBC % Seg Neutrophils # Seg Neutrophils # Man Lymphocytes # (Manual) Monocytes # (Manual) Eosinophils # (Manual) Basophils # (Manual) PT INR POC ABG pH ABG pH POC ABG pCO2 POC ABG pO2 ABG pO2 ABG O2 Saturation ABG Base Excess ABG Hemoglobin Oxyhemoglobin Sodium Potassium Chloride Carbon Dioxide BUN Creatinine Glucose POC Glucose 165 H 198 H 218 H Calcium Phosphorus Magnesium AST ALT Alkaline Phosphatase Troponin T C-Reactive Protein Total Protein Albumin Triglycerides HDL Cholesterol Miscellaneous Test Crossmatch 08/27/17 08/28/17 08/28/17 17:27 02:13 06:46 WBC RBC Hgb Hct MCV MCH RDW Plt Count Lymph % (Auto) [place] % (Auto) [place] # Seg Neutrophils % Seg Neuts % (Manual) Lymphocytes % (Manual) Monocytes % (Manual) Nucleated RBC % Seg Neutrophils # Seg Neutrophils # Man Lymphocytes # (Manual) Monocytes # (Manual) Eosinophils # (Manual) Basophils # (Manual) PT INR POC ABG pH ABG pH POC ABG pCO2 POC ABG pO2 ABG pO2 ABG O2 Saturation ABG Base Excess ABG Hemoglobin Oxyhemoglobin Sodium Potassium Chloride Carbon Dioxide BUN Creatinine Glucose POC Glucose 151 H 155 H 230 H Calcium Phosphorus Magnesium AST ALT Alkaline Phosphatase Troponin T C-Reactive Protein Total Protein Albumin Triglycerides HDL Cholesterol Miscellaneous Test Crossmatch 08/28/17 08/28/17 08/28/17 06:53 06:53 08:19 WBC 31.1 H RBC 2.26 L Hgb 6.8 L Hct 20.9 L MCV MCH RDW 21.7 H Plt Count Lymph % (Auto) [place] % (Auto) [place] # Seg Neutrophils % Seg Neuts % (Manual) 83.0 H Lymphocytes % (Manual) 4.0 L Monocytes % (Manual) Nucleated RBC % Seg Neutrophils # Seg Neutrophils # Man 25.8 H Lymphocytes # (Manual) Monocytes # (Manual) Eosinophils # (Manual) Basophils # (Manual) PT INR POC ABG pH ABG pH POC ABG pCO2 POC ABG pO2 ABG pO2 ABG O2 Saturation ABG Base Excess ABG Hemoglobin Oxyhemoglobin Sodium Potassium Chloride Carbon Dioxide BUN 81 H Creatinine 3.4 H Glucose 218 H POC Glucose 239 H Calcium Phosphorus 4.90 H Magnesium AST ALT Alkaline Phosphatase Troponin T C-Reactive Protein Total Protein Albumin Triglycerides HDL Cholesterol Miscellaneous Test Crossmatch 08/28/17 08/28/17 08/28/17 11:56 13:05 13:29 WBC RBC Hgb Hct MCV MCH RDW Plt Count Lymph % (Auto) [place] % (Auto) [place] # Seg Neutrophils % Seg Neuts % (Manual) Lymphocytes % (Manual) Monocytes % (Manual) Nucleated RBC % Seg Neutrophils # Seg Neutrophils # Man Lymphocytes # (Manual) Monocytes # (Manual) Eosinophils # (Manual) Basophils # (Manual) PT 16.7 H INR 1.29 H POC ABG pH ABG pH POC ABG pCO2 POC ABG pO2 338 H ABG pO2 ABG O2 Saturation ABG Base Excess ABG Hemoglobin Oxyhemoglobin Sodium Potassium Chloride Carbon Dioxide BUN Creatinine Glucose POC Glucose Calcium Phosphorus Magnesium AST ALT Alkaline Phosphatase Troponin T C-Reactive Protein Total Protein Albumin Triglycerides HDL Cholesterol Miscellaneous Test Crossmatch See Detail 08/28/17 08/28/17 08/29/17 16:22 19:20 04:24 WBC RBC Hgb Hct MCV MCH RDW Plt Count Lymph % (Auto) [place] % (Auto) [place] # Seg Neutrophils % Seg Neuts % (Manual) Lymphocytes % (Manual) Monocytes % (Manual) Nucleated RBC % Seg Neutrophils # Seg Neutrophils # Man Lymphocytes # (Manual) Monocytes # (Manual) Eosinophils # (Manual) Basophils # (Manual) PT INR POC ABG pH 7.469 H ABG pH POC ABG pCO2 POC ABG pO2 240 H ABG pO2 ABG O2 Saturation ABG Base Excess ABG Hemoglobin Oxyhemoglobin Sodium Potassium Chloride Carbon Dioxide BUN Creatinine Glucose POC Glucose 209 H 195 H Calcium Phosphorus Magnesium AST ALT Alkaline Phosphatase Troponin T C-Reactive Protein Total Protein Albumin Triglycerides HDL Cholesterol Miscellaneous Test Crossmatch 08/29/17 08/29/17 08/29/17 04:30 04:30 12:07 WBC 44.9 H* RBC Hgb Hct MCV MCH RDW 23.1 H Plt Count Lymph % (Auto) [place] % (Auto) [place] # Seg Neutrophils % Seg Neuts % (Manual) 38.0 L Lymphocytes % (Manual) 10.0 L Monocytes % (Manual) 10.0 H Nucleated RBC % 6.0 H Seg Neutrophils # Seg Neutrophils # Man 17.1 H Lymphocytes # (Manual) Monocytes # (Manual) 4.5 H Eosinophils # (Manual) Basophils # (Manual) PT INR POC ABG pH ABG pH POC ABG pCO2 POC ABG pO2 ABG pO2 ABG O2 Saturation ABG Base Excess ABG Hemoglobin Oxyhemoglobin Sodium Potassium Chloride Carbon Dioxide BUN 61 H Creatinine 2.4 H Glucose 226 H POC Glucose 200 H Calcium Phosphorus Magnesium AST ALT Alkaline Phosphatase Troponin T C-Reactive Protein Total Protein Albumin Triglycerides HDL Cholesterol Miscellaneous Test Crossmatch 08/29/17 08/29/17 08/29/17 12:30 12:30 17:23 WBC RBC Hgb Hct MCV MCH RDW Plt Count Lymph % (Auto) [place] % (Auto) [place] # Seg Neutrophils % Seg Neuts % (Manual) Lymphocytes % (Manual) Monocytes % (Manual) Nucleated RBC % Seg Neutrophils # Seg Neutrophils # Man Lymphocytes # (Manual) Monocytes # (Manual) Eosinophils # (Manual) Basophils # (Manual) PT INR POC ABG pH ABG pH POC ABG pCO2 POC ABG pO2 ABG pO2 ABG O2 Saturation ABG Base Excess ABG Hemoglobin Oxyhemoglobin Sodium Potassium Chloride Carbon Dioxide BUN Creatinine Glucose POC Glucose 270 H Calcium Phosphorus Magnesium AST ALT Alkaline Phosphatase Troponin T C-Reactive Protein 19.10 H Total Protein Albumin Triglycerides HDL Cholesterol Miscellaneous Test Flexitest 1 H Crossmatch 08/30/17 08/30/17 08/30/17 00:10 01:30 03:31 WBC RBC Hgb Hct MCV MCH RDW Plt Count Lymph % (Auto) [place] % (Auto) [place] # Seg Neutrophils % Seg Neuts % (Manual) Lymphocytes % (Manual) Monocytes % (Manual) Nucleated RBC % Seg Neutrophils # Seg Neutrophils # Man Lymphocytes # (Manual) Monocytes # (Manual) Eosinophils # (Manual) Basophils # (Manual) PT INR POC ABG pH 7.168 L 7.335 L ABG pH POC ABG pCO2 72.8 H POC ABG pO2 257 H 117 H ABG pO2 ABG O2 Saturation ABG Base Excess ABG Hemoglobin Oxyhemoglobin Sodium Potassium Chloride Carbon Dioxide BUN Creatinine Glucose POC Glucose 245 H Calcium Phosphorus Magnesium AST ALT Alkaline Phosphatase Troponin T C-Reactive Protein Total Protein Albumin Triglycerides HDL Cholesterol Miscellaneous Test Crossmatch 08/30/17 08/30/17 08/30/17 05:20 05:20 05:20 WBC 40.9 H* RBC 3.64 L Hgb Hct MCV MCH RDW 24.3 H Plt Count Lymph % (Auto) [place] % (Auto) [place] # Seg Neutrophils % Seg Neuts % (Manual) 80.0 H Lymphocytes % (Manual) 3.0 L Monocytes % (Manual) Nucleated RBC % 1.0 H Seg Neutrophils # Seg Neutrophils # Man 32.7 H Lymphocytes # (Manual) Monocytes # (Manual) Eosinophils # (Manual) Basophils # (Manual) PT INR POC ABG pH ABG pH POC ABG pCO2 POC ABG pO2 ABG pO2 ABG O2 Saturation ABG Base Excess ABG Hemoglobin Oxyhemoglobin Sodium Potassium Chloride Carbon Dioxide BUN 83 H Creatinine 2.9 H Glucose 334 H POC Glucose 309 H Calcium Phosphorus Magnesium AST ALT Alkaline Phosphatase Troponin T C-Reactive Protein Total Protein Albumin Triglycerides HDL Cholesterol Miscellaneous Test Crossmatch 08/30/17 08/30/17 08/31/17 12:18 17:36 00:17 WBC RBC Hgb Hct MCV MCH RDW Plt Count Lymph % (Auto) [place] % (Auto) [place] # Seg Neutrophils % Seg Neuts % (Manual) Lymphocytes % (Manual) Monocytes % (Manual) Nucleated RBC % Seg Neutrophils # Seg Neutrophils # Man Lymphocytes # (Manual) Monocytes # (Manual) Eosinophils # (Manual) Basophils # (Manual) PT INR POC ABG pH ABG pH POC ABG pCO2 POC ABG pO2 ABG pO2 ABG O2 Saturation ABG Base Excess ABG Hemoglobin Oxyhemoglobin Sodium Potassium Chloride Carbon Dioxide BUN Creatinine Glucose POC Glucose 273 H 293 H 360 H Calcium Phosphorus Magnesium AST ALT Alkaline Phosphatase Troponin T C-Reactive Protein Total Protein Albumin Triglycerides HDL Cholesterol Miscellaneous Test Crossmatch 08/31/17 08/31/17 08/31/17 05:30 05:30 05:32 WBC 29.9 H RBC 2.89 L Hgb 8.2 L Hct 24.7 L D MCV MCH RDW 24.4 H Plt Count Lymph % (Auto) [place] % (Auto) [place] # Seg Neutrophils % Seg Neuts % (Manual) Lymphocytes % (Manual) 2.0 L Monocytes % (Manual) Nucleated RBC % 2.0 H Seg Neutrophils # Seg Neutrophils # Man 18.5 H Lymphocytes # (Manual) 0.6 L Monocytes # (Manual) 0.9 H Eosinophils # (Manual) Basophils # (Manual) PT INR POC ABG pH ABG pH POC ABG pCO2 POC ABG pO2 ABG pO2 ABG O2 Saturation ABG Base Excess ABG Hemoglobin Oxyhemoglobin Sodium Potassium Chloride Carbon Dioxide BUN 62 H Creatinine 2.2 H Glucose 245 H POC Glucose 257 H Calcium Phosphorus 2.10 L D Magnesium 1.60 L AST ALT Alkaline Phosphatase Troponin T C-Reactive Protein Total Protein Albumin Triglycerides HDL Cholesterol Miscellaneous Test Crossmatch 1008/31/17 08/31/17 11:56 12:05 18:14 WBC 32.5 H RBC 3.19 L Hgb 8.8 L Hct 27.9 L MCV MCH RDW 24.9 H Plt Count Lymph % (Auto) [place] % (Auto) [place] # Seg Neutrophils % Seg Neuts % (Manual) Lymphocytes % (Manual) 1.0 L Monocytes % (Manual) 12.0 H Nucleated RBC % 1.0 H Seg Neutrophils # Seg Neutrophils # Man 13.3 H Lymphocytes # (Manual) 0.3 L Monocytes # (Manual) 3.9 H Eosinophils # (Manual) Basophils # (Manual) PT INR POC ABG pH ABG pH POC ABG pCO2 POC ABG pO2 ABG pO2 ABG O2 Saturation ABG Base Excess ABG Hemoglobin Oxyhemoglobin Sodium Potassium Chloride Carbon Dioxide BUN Creatinine Glucose POC Glucose 245 H Calcium Phosphorus Magnesium AST ALT Alkaline Phosphatase Troponin T C-Reactive Protein Total Protein Albumin Triglycerides HDL Cholesterol Miscellaneous Test Crossmatch See Detail 08/31/17 08/31/17 08/31/17 18:14 18:15 23:53 WBC RBC Hgb Hct MCV MCH RDW Plt Count Lymph % (Auto) [place] % (Auto) [place] # Seg Neutrophils % Seg Neuts % (Manual) Lymphocytes % (Manual) Monocytes % (Manual) Nucleated RBC % Seg Neutrophils # Seg Neutrophils # Man Lymphocytes # (Manual) Monocytes # (Manual) Eosinophils # (Manual) Basophils # (Manual) PT 15.1 H INR POC ABG pH ABG pH POC ABG pCO2 POC ABG pO2 ABG pO2 ABG O2 Saturation ABG Base Excess ABG Hemoglobin Oxyhemoglobin Sodium 136 L Potassium Chloride Carbon Dioxide 21 L BUN 69 H Creatinine 2.3 H Glucose 227 H POC Glucose 301 H Calcium Phosphorus 2.40 L Magnesium 1.50 L AST 143 H ALT 114 H Alkaline Phosphatase 267 H Troponin T C-Reactive Protein Total Protein 4.1 L Albumin 1.8 L Triglycerides HDL Cholesterol Miscellaneous Test Crossmatch 09/01/17 09/01/17 09/01/17 05:00 05:00 05:20 WBC 33.9 H RBC 2.85 L Hgb 7.8 L Hct 24.8 L MCV MCH 27 L RDW 23.9 H Plt Count Lymph % (Auto) [place] % (Auto) [place] # Seg Neutrophils % Seg Neuts % (Manual) Lymphocytes % (Manual) 5.0 L Monocytes % (Manual) Nucleated RBC % Seg Neutrophils # Seg Neutrophils # Man 23.1 H Lymphocytes # (Manual) Monocytes # (Manual) Eosinophils # (Manual) Basophils # (Manual) PT INR POC ABG pH ABG pH 7.348 L POC ABG pCO2 POC ABG pO2 ABG pO2 70.2 L ABG O2 Saturation ABG Base Excess ABG Hemoglobin 7.5 L Oxyhemoglobin Sodium Potassium Chloride Carbon Dioxide BUN 51 H Creatinine 1.8 H Glucose 195 H POC Glucose Calcium Phosphorus 1.70 L D Magnesium 1.60 L AST 80 H ALT 82 H Alkaline Phosphatase 243 H Troponin T C-Reactive Protein Total Protein 4.2 L Albumin 1.7 L Triglycerides HDL Cholesterol Miscellaneous Test Crossmatch 09/01/17 09/01/17 09/01/17 05:47 11:37 17:39 WBC RBC Hgb Hct MCV MCH RDW Plt Count Lymph % (Auto) [place] % (Auto) [place] # Seg Neutrophils % Seg Neuts % (Manual) Lymphocytes % (Manual) Monocytes % (Manual) Nucleated RBC % Seg Neutrophils # Seg Neutrophils # Man Lymphocytes # (Manual) Monocytes # (Manual) Eosinophils # (Manual) Basophils # (Manual) PT INR POC ABG pH ABG pH POC ABG pCO2 POC ABG pO2 ABG pO2 ABG O2 Saturation ABG Base Excess ABG Hemoglobin Oxyhemoglobin Sodium Potassium Chloride Carbon Dioxide BUN Creatinine Glucose POC Glucose 230 H 254 H 297 H Calcium Phosphorus Magnesium AST ALT Alkaline Phosphatase Troponin T C-Reactive Protein Total Protein Albumin Triglycerides HDL Cholesterol Miscellaneous Test Crossmatch 09/01/17 09/02/17 09/02/17 23:14 04:55 05:31 WBC RBC Hgb Hct MCV MCH RDW Plt Count Lymph % (Auto) [place] % (Auto) [place] # Seg Neutrophils % Seg Neuts % (Manual) Lymphocytes % (Manual) Monocytes % (Manual) Nucleated RBC % Seg Neutrophils # Seg Neutrophils # Man Lymphocytes # (Manual) Monocytes # (Manual) Eosinophils # (Manual) Basophils # (Manual) PT INR POC ABG pH ABG pH POC ABG pCO2 POC ABG pO2 ABG pO2 124.8 H ABG O2 Saturation ABG Base Excess -2.9 L ABG Hemoglobin 5.8 L Oxyhemoglobin Sodium Potassium Chloride Carbon Dioxide BUN Creatinine Glucose POC Glucose 291 H 245 H Calcium Phosphorus Magnesium AST ALT Alkaline Phosphatase Troponin T C-Reactive Protein Total Protein Albumin Triglycerides HDL Cholesterol Miscellaneous Test Crossmatch 09/02/17 09/02/17 09/02/17 06:10 11:58 15:37 WBC RBC Hgb Hct MCV MCH RDW Plt Count Lymph % (Auto) [place] % (Auto) [place] # Seg Neutrophils % Seg Neuts % (Manual) Lymphocytes % (Manual) Monocytes % (Manual) Nucleated RBC % Seg Neutrophils # Seg Neutrophils # Man Lymphocytes # (Manual) Monocytes # (Manual) Eosinophils # (Manual) Basophils # (Manual) PT INR POC ABG pH ABG pH POC ABG pCO2 POC ABG pO2 ABG pO2 ABG O2 Saturation ABG Base Excess ABG Hemoglobin Oxyhemoglobin Sodium Potassium Chloride Carbon Dioxide BUN 68 H Creatinine 2.2 H Glucose 369 H POC Glucose 333 H 314 H Calcium 8.2 L Phosphorus Magnesium AST ALT Alkaline Phosphatase Troponin T C-Reactive Protein Total Protein Albumin Triglycerides HDL Cholesterol Miscellaneous Test Crossmatch 09/02/17 09/03/17 09/03/17 23:50 04:00 05:00 WBC 41.5 H* RBC 2.46 L Hgb 6.9 L Hct 21.3 L MCV MCH RDW 24.9 H Plt Count Lymph % (Auto) [place] % (Auto) [place] # Seg Neutrophils % Seg Neuts % (Manual) Lymphocytes % (Manual) 3.0 L Monocytes % (Manual) 9.5 H Nucleated RBC % 1.5 H Seg Neutrophils # Seg Neutrophils # Man 28.8 H Lymphocytes # (Manual) Monocytes # (Manual) 3.9 H Eosinophils # (Manual) Basophils # (Manual) PT INR POC ABG pH ABG pH POC ABG pCO2 POC ABG pO2 ABG pO2 ABG O2 Saturation ABG Base Excess ABG Hemoglobin Oxyhemoglobin Sodium Potassium Chloride Carbon Dioxide BUN 59 H Creatinine 1.9 H Glucose 231 H POC Glucose 240 H Calcium 8.0 L Phosphorus Magnesium AST ALT Alkaline Phosphatase 265 H Troponin T C-Reactive Protein Total Protein 4.4 L Albumin 1.7 L Triglycerides 180 H HDL Cholesterol Miscellaneous Test Crossmatch 09/03/17 09/03/17 09/03/17 05:32 11:52 16:55 WBC RBC Hgb Hct MCV MCH RDW Plt Count Lymph % (Auto) [place] % (Auto) [place] # Seg Neutrophils % Seg Neuts % (Manual) Lymphocytes % (Manual) Monocytes % (Manual) Nucleated RBC % Seg Neutrophils # Seg Neutrophils # Man Lymphocytes # (Manual) Monocytes # (Manual) Eosinophils # (Manual) Basophils # (Manual) PT INR POC ABG pH ABG pH POC ABG pCO2 POC ABG pO2 ABG pO2 ABG O2 Saturation ABG Base Excess ABG Hemoglobin Oxyhemoglobin Sodium Potassium Chloride Carbon Dioxide BUN Creatinine Glucose POC Glucose 188 H 285 H Calcium Phosphorus Magnesium AST ALT Alkaline Phosphatase Troponin T C-Reactive Protein Total Protein Albumin Triglycerides HDL Cholesterol Miscellaneous Test Crossmatch See Detail 09/03/17 09/03/17 09/03/17 17:44 23:56 Unknown WBC RBC Hgb Hct MCV MCH RDW Plt Count Lymph % (Auto) [place] % (Auto) [place] # Seg Neutrophils % Seg Neuts % (Manual) Lymphocytes % (Manual) Monocytes % (Manual) Nucleated RBC % Seg Neutrophils # Seg Neutrophils # Man Lymphocytes # (Manual) Monocytes # (Manual) Eosinophils # (Manual) Basophils # (Manual) PT INR POC ABG pH ABG pH POC ABG pCO2 POC ABG pO2 ABG pO2 133.4 H ABG O2 Saturation ABG Base Excess ABG Hemoglobin 5.8 L Oxyhemoglobin Sodium Potassium Chloride Carbon Dioxide BUN Creatinine Glucose POC Glucose 217 H 193 H Calcium Phosphorus Magnesium AST ALT Alkaline Phosphatase Troponin T C-Reactive Protein Total Protein Albumin Triglycerides HDL Cholesterol Miscellaneous Test Crossmatch 09/04/17 09/04/17 09/04/17 03:47 04:32 04:32 WBC 44.7 H* RBC 3.12 L Hgb 8.7 L Hct 26.7 L MCV MCH RDW 23.5 H Plt Count Lymph % (Auto) [place] % (Auto) [place] # Seg Neutrophils % Seg Neuts % (Manual) Lymphocytes % (Manual) 4.0 L Monocytes % (Manual) Nucleated RBC % 2.0 H Seg Neutrophils # Seg Neutrophils # Man 30.8 H Lymphocytes # (Manual) Monocytes # (Manual) 2.2 H Eosinophils # (Manual) Basophils # (Manual) PT INR POC ABG pH ABG pH POC ABG pCO2 POC ABG pO2 ABG pO2 135.0 H ABG O2 Saturation ABG Base Excess -2.5 L ABG Hemoglobin 7.9 L Oxyhemoglobin Sodium 136 L Potassium 5.2 H D Chloride 94.2 L Carbon Dioxide BUN 71 H Creatinine 2.3 H Glucose 235 H POC Glucose Calcium 8.3 L Phosphorus Magnesium AST ALT Alkaline Phosphatase Troponin T C-Reactive Protein Total Protein Albumin Triglycerides HDL Cholesterol Miscellaneous Test Crossmatch 09/04/17 09/04/17 09/04/17 05:48 10:43 12:38 WBC RBC Hgb Hct MCV MCH RDW Plt Count Lymph % (Auto) [place] % (Auto) [place] # Seg Neutrophils % Seg Neuts % (Manual) Lymphocytes % (Manual) Monocytes % (Manual) Nucleated RBC % Seg Neutrophils # Seg Neutrophils # Man Lymphocytes # (Manual) Monocytes # (Manual) Eosinophils # (Manual) Basophils # (Manual) PT INR POC ABG pH ABG pH POC ABG pCO2 POC ABG pO2 ABG pO2 ABG O2 Saturation ABG Base Excess ABG Hemoglobin Oxyhemoglobin Sodium Potassium Chloride Carbon Dioxide BUN Creatinine Glucose POC Glucose 329 H 444 H Calcium Phosphorus Magnesium AST ALT Alkaline Phosphatase Troponin T C-Reactive Protein Total Protein Albumin Triglycerides HDL Cholesterol Miscellaneous Test Flexitest 1 H Crossmatch 09/04/17 09/05/17 09/05/17 17:30 00:15 03:55 WBC 35.3 H RBC 2.87 L Hgb 8.1 L Hct 24.6 L MCV MCH RDW 23.3 H Plt Count Lymph % (Auto) [place] % (Auto) [place] # Seg Neutrophils % Seg Neuts % (Manual) 89.5 H Lymphocytes % (Manual) 3.0 L Monocytes % (Manual) Nucleated RBC % 2.5 H Seg Neutrophils # Seg Neutrophils # Man 31.6 H Lymphocytes # (Manual) 1.1 L Monocytes # (Manual) Eosinophils # (Manual) Basophils # (Manual) PT INR POC ABG pH ABG pH POC ABG pCO2 POC ABG pO2 ABG pO2 ABG O2 Saturation ABG Base Excess ABG Hemoglobin Oxyhemoglobin Sodium Potassium Chloride Carbon Dioxide BUN Creatinine Glucose POC Glucose 331 H 362 H Calcium Phosphorus Magnesium AST ALT Alkaline Phosphatase Troponin T C-Reactive Protein Total Protein Albumin Triglycerides HDL Cholesterol Miscellaneous Test Crossmatch 09/05/17 09/05/17 09/05/17 03:55 12:12 14:32 WBC RBC Hgb Hct MCV MCH RDW Plt Count Lymph % (Auto) [place] % (Auto) [place] # Seg Neutrophils % Seg Neuts % (Manual) Lymphocytes % (Manual) Monocytes % (Manual) Nucleated RBC % Seg Neutrophils # Seg Neutrophils # Man Lymphocytes # (Manual) Monocytes # (Manual) Eosinophils # (Manual) Basophils # (Manual) PT INR POC ABG pH ABG pH POC ABG pCO2 POC ABG pO2 ABG pO2 ABG O2 Saturation ABG Base Excess ABG Hemoglobin Oxyhemoglobin Sodium 136 L Potassium Chloride 94.7 L Carbon Dioxide BUN 55 H Creatinine 1.8 H Glucose 193 H POC Glucose 344 H 265 H Calcium 8.1 L Phosphorus Magnesium AST ALT Alkaline Phosphatase Troponin T C-Reactive Protein Total Protein Albumin Triglycerides HDL Cholesterol Miscellaneous Test Crossmatch 09/05/17 09/05/17 09/05/17 15:32 16:41 17:28 WBC RBC Hgb Hct MCV MCH RDW Plt Count Lymph % (Auto) [place] % (Auto) [place] # Seg Neutrophils % Seg Neuts % (Manual) Lymphocytes % (Manual) Monocytes % (Manual) Nucleated RBC % Seg Neutrophils # Seg Neutrophils # Man Lymphocytes # (Manual) Monocytes # (Manual) Eosinophils # (Manual) Basophils # (Manual) PT INR POC ABG pH ABG pH POC ABG pCO2 POC ABG pO2 ABG pO2 ABG O2 Saturation ABG Base Excess ABG Hemoglobin Oxyhemoglobin Sodium Potassium Chloride Carbon Dioxide BUN Creatinine Glucose POC Glucose 145 H 188 H 246 H Calcium Phosphorus Magnesium AST ALT Alkaline Phosphatase Troponin T C-Reactive Protein Total Protein Albumin Triglycerides HDL Cholesterol Miscellaneous Test Crossmatch 09/05/17 09/05/17 09/05/17 18:38 20:10 21:06 WBC RBC Hgb Hct MCV MCH RDW Plt Count Lymph % (Auto) [place] % (Auto) [place] # Seg Neutrophils % Seg Neuts % (Manual) Lymphocytes % (Manual) Monocytes % (Manual) Nucleated RBC % Seg Neutrophils # Seg Neutrophils # Man Lymphocytes # (Manual) Monocytes # (Manual) Eosinophils # (Manual) Basophils # (Manual) PT INR POC ABG pH ABG pH POC ABG pCO2 POC ABG pO2 ABG pO2 ABG O2 Saturation ABG Base Excess ABG Hemoglobin Oxyhemoglobin Sodium Potassium Chloride Carbon Dioxide BUN Creatinine Glucose POC Glucose 271 H 165 H 134 H Calcium Phosphorus Magnesium AST ALT Alkaline Phosphatase Troponin T C-Reactive Protein Total Protein Albumin Triglycerides HDL Cholesterol Miscellaneous Test Crossmatch 09/05/17 09/06/17 09/06/17 23:07 00:10 01:08 WBC RBC Hgb Hct MCV MCH RDW Plt Count Lymph % (Auto) [place] % (Auto) [place] # Seg Neutrophils % Seg Neuts % (Manual) Lymphocytes % (Manual) Monocytes % (Manual) Nucleated RBC % Seg Neutrophils # Seg Neutrophils # Man Lymphocytes # (Manual) Monocytes # (Manual) Eosinophils # (Manual) Basophils # (Manual) PT INR POC ABG pH ABG pH POC ABG pCO2 POC ABG pO2 ABG pO2 ABG O2 Saturation ABG Base Excess ABG Hemoglobin Oxyhemoglobin Sodium Potassium Chloride Carbon Dioxide BUN Creatinine Glucose POC Glucose 135 H 147 H 133 H Calcium Phosphorus Magnesium AST ALT Alkaline Phosphatase Troponin T C-Reactive Protein Total Protein Albumin Triglycerides HDL Cholesterol Miscellaneous Test Crossmatch 09/06/17 09/06/17 09/06/17 02:01 03:08 05:30 WBC 38.6 H RBC 2.95 L Hgb 8.3 L Hct 25.3 L MCV MCH RDW 22.2 H Plt Count Lymph % (Auto) [place] % (Auto) [place] # Seg Neutrophils % Seg Neuts % (Manual) Lymphocytes % (Manual) 2.0 L Monocytes % (Manual) Nucleated RBC % 5.0 H Seg Neutrophils # Seg Neutrophils # Man 25.9 H Lymphocytes # (Manual) 0.8 L Monocytes # (Manual) 1.9 H Eosinophils # (Manual) Basophils # (Manual) PT INR POC ABG pH ABG pH POC ABG pCO2 POC ABG pO2 ABG pO2 ABG O2 Saturation ABG Base Excess ABG Hemoglobin Oxyhemoglobin Sodium Potassium Chloride Carbon Dioxide BUN Creatinine Glucose POC Glucose 146 H 135 H Calcium Phosphorus Magnesium AST ALT Alkaline Phosphatase Troponin T C-Reactive Protein Total Protein Albumin Triglycerides HDL Cholesterol Miscellaneous Test Crossmatch 09/06/17 09/06/17 09/06/17 05:30 05:30 05:48 WBC RBC Hgb Hct MCV MCH RDW Plt Count Lymph % (Auto) [place] % (Auto) [place] # Seg Neutrophils % Seg Neuts % (Manual) Lymphocytes % (Manual) Monocytes % (Manual) Nucleated RBC % Seg Neutrophils # Seg Neutrophils # Man Lymphocytes # (Manual) Monocytes # (Manual) Eosinophils # (Manual) Basophils # (Manual) PT INR POC ABG pH ABG pH POC ABG pCO2 POC ABG pO2 ABG pO2 ABG O2 Saturation ABG Base Excess ABG Hemoglobin Oxyhemoglobin Sodium 135 L Potassium Chloride 93.5 L Carbon Dioxide BUN 82 H Creatinine 2.3 H Glucose 148 H POC Glucose 152 H Calcium Phosphorus Magnesium AST ALT Alkaline Phosphatase Troponin T C-Reactive Protein 2.80 H Total Protein Albumin Triglycerides HDL Cholesterol Miscellaneous Test Crossmatch 09/06/17 09/06/17 09/06/17 08:04 09:06 09:57 WBC RBC Hgb Hct MCV MCH RDW Plt Count Lymph % (Auto) [place] % (Auto) [place] # Seg Neutrophils % Seg Neuts % (Manual) Lymphocytes % (Manual) Monocytes % (Manual) Nucleated RBC % Seg Neutrophils # Seg Neutrophils # Man Lymphocytes # (Manual) Monocytes # (Manual) Eosinophils # (Manual) Basophils # (Manual) PT INR POC ABG pH ABG pH POC ABG pCO2 POC ABG pO2 ABG pO2 ABG O2 Saturation ABG Base Excess ABG Hemoglobin Oxyhemoglobin Sodium Potassium Chloride Carbon Dioxide BUN Creatinine Glucose POC Glucose 164 H 172 H Calcium Phosphorus Magnesium AST ALT Alkaline Phosphatase Troponin T C-Reactive Protein Total Protein Albumin Triglycerides HDL Cholesterol Miscellaneous Test Flexitest 1 H Crossmatch 09/06/17 09/06/17 09/06/17 10:19 10:57 13:12 WBC RBC Hgb Hct MCV MCH RDW Plt Count Lymph % (Auto) [place] % (Auto) [place] # Seg Neutrophils % Seg Neuts % (Manual) Lymphocytes % (Manual) Monocytes % (Manual) Nucleated RBC % Seg Neutrophils # Seg Neutrophils # Man Lymphocytes # (Manual) Monocytes # (Manual) Eosinophils # (Manual) Basophils # (Manual) PT INR POC ABG pH ABG pH POC ABG pCO2 POC ABG pO2 ABG pO2 ABG O2 Saturation ABG Base Excess ABG Hemoglobin Oxyhemoglobin Sodium Potassium Chloride Carbon Dioxide BUN Creatinine Glucose POC Glucose 186 H 162 H 166 H Calcium Phosphorus Magnesium AST ALT Alkaline Phosphatase Troponin T C-Reactive Protein Total Protein Albumin Triglycerides HDL Cholesterol Miscellaneous Test Crossmatch 09/06/17 09/06/17 09/07/17 13:40 17:36 00:13 WBC RBC Hgb 8.9 L Hct 28.5 L MCV MCH RDW Plt Count Lymph % (Auto) [place] % (Auto) [place] # Seg Neutrophils % Seg Neuts % (Manual) Lymphocytes % (Manual) Monocytes % (Manual) Nucleated RBC % Seg Neutrophils # Seg Neutrophils # Man Lymphocytes # (Manual) Monocytes # (Manual) Eosinophils # (Manual) Basophils # (Manual) PT INR POC ABG pH ABG pH POC ABG pCO2 POC ABG pO2 ABG pO2 ABG O2 Saturation ABG Base Excess ABG Hemoglobin Oxyhemoglobin Sodium Potassium Chloride Carbon Dioxide BUN Creatinine Glucose POC Glucose 161 H 183 H Calcium Phosphorus Magnesium AST ALT Alkaline Phosphatase Troponin T C-Reactive Protein Total Protein Albumin Triglycerides HDL Cholesterol Miscellaneous Test Crossmatch 09/07/17 09/07/17 09/07/17 03:50 03:50 05:12 WBC 47.0 H* RBC 2.81 L Hgb 8.1 L Hct 24.1 L MCV MCH RDW 22.5 H Plt Count Lymph % (Auto) [place] % (Auto) [place] # Seg Neutrophils % Seg Neuts % (Manual) Lymphocytes % (Manual) 9.0 L Monocytes % (Manual) Nucleated RBC % 6.0 H Seg Neutrophils # Seg Neutrophils # Man 27.3 H Lymphocytes # (Manual) Monocytes # (Manual) 0.9 H Eosinophils # (Manual) 1.9 H Basophils # (Manual) PT INR POC ABG pH ABG pH POC ABG pCO2 POC ABG pO2 ABG pO2 ABG O2 Saturation ABG Base Excess ABG Hemoglobin Oxyhemoglobin Sodium 136 L Potassium Chloride 96.3 L Carbon Dioxide BUN 61 H Creatinine 1.7 H Glucose 132 H POC Glucose 162 H Calcium 7.8 L Phosphorus Magnesium AST ALT Alkaline Phosphatase Troponin T C-Reactive Protein Total Protein Albumin Triglycerides HDL Cholesterol Miscellaneous Test Crossmatch 09/07/17 09/07/17 09/07/17 05:23 11:48 17:07 WBC RBC Hgb Hct MCV MCH RDW Plt Count Lymph % (Auto) [place] % (Auto) [place] # Seg Neutrophils % Seg Neuts % (Manual) Lymphocytes % (Manual) Monocytes % (Manual) Nucleated RBC % Seg Neutrophils # Seg Neutrophils # Man Lymphocytes # (Manual) Monocytes # (Manual) Eosinophils # (Manual) Basophils # (Manual) PT INR POC ABG pH ABG pH POC ABG pCO2 POC ABG pO2 ABG pO2 ABG O2 Saturation ABG Base Excess ABG Hemoglobin 7.7 L Oxyhemoglobin 94.8 L Sodium Potassium Chloride Carbon Dioxide BUN Creatinine Glucose POC Glucose 200 H Calcium Phosphorus Magnesium AST ALT Alkaline Phosphatase Troponin T C-Reactive Protein Total Protein Albumin Triglycerides HDL Cholesterol Miscellaneous Test Crossmatch See Detail 09/07/17 09/08/17 09/08/17 18:21 00:06 04:05 WBC 49.7 H* RBC 2.58 L Hgb 7.3 L Hct 22.7 L MCV MCH RDW 22.5 H Plt Count Lymph % (Auto) [place] % (Auto) [place] # Seg Neutrophils % Seg Neuts % (Manual) 90.5 H Lymphocytes % (Manual) 1.5 L Monocytes % (Manual) Nucleated RBC % Seg Neutrophils # Seg Neutrophils # Man 45.0 H Lymphocytes # (Manual) 0.7 L Monocytes # (Manual) 1.7 H Eosinophils # (Manual) Basophils # (Manual) PT INR POC ABG pH ABG pH POC ABG pCO2 POC ABG pO2 ABG pO2 ABG O2 Saturation ABG Base Excess ABG Hemoglobin Oxyhemoglobin Sodium Potassium Chloride Carbon Dioxide BUN Creatinine Glucose POC Glucose 181 H 168 H Calcium Phosphorus Magnesium AST ALT Alkaline Phosphatase Troponin T C-Reactive Protein Total Protein Albumin Triglycerides HDL Cholesterol Miscellaneous Test Crossmatch 09/08/17 09/08/17 09/08/17 04:05 04:41 09:21 WBC RBC Hgb Hct MCV MCH RDW Plt Count Lymph % (Auto) [place] % (Auto) [place] # Seg Neutrophils % Seg Neuts % (Manual) Lymphocytes % (Manual) Monocytes % (Manual) Nucleated RBC % Seg Neutrophils # Seg Neutrophils # Man Lymphocytes # (Manual) Monocytes # (Manual) Eosinophils # (Manual) Basophils # (Manual) PT INR POC ABG pH ABG pH POC ABG pCO2 POC ABG pO2 ABG pO2 218.5 H ABG O2 Saturation 99.3 H ABG Base Excess -3.5 L ABG Hemoglobin 7.7 L Oxyhemoglobin Sodium 132 L Potassium Chloride 92.1 L Carbon Dioxide BUN 82 H Creatinine 2.2 H Glucose 162 H POC Glucose 235 H Calcium 8.3 L Phosphorus 5.20 H D Magnesium AST ALT Alkaline Phosphatase 199 H Troponin T C-Reactive Protein Total Protein 4.5 L Albumin 1.7 L Triglycerides HDL Cholesterol Miscellaneous Test Crossmatch 09/08/17 09/08/17 09/09/17 11:52 17:38 00:24 WBC RBC Hgb Hct MCV MCH RDW Plt Count Lymph % (Auto) [place] % (Auto) [place] # Seg Neutrophils % Seg Neuts % (Manual) Lymphocytes % (Manual) Monocytes % (Manual) Nucleated RBC % Seg Neutrophils # Seg Neutrophils # Man Lymphocytes # (Manual) Monocytes # (Manual) Eosinophils # (Manual) Basophils # (Manual) PT INR POC ABG pH ABG pH POC ABG pCO2 POC ABG pO2 ABG pO2 ABG O2 Saturation ABG Base Excess ABG Hemoglobin Oxyhemoglobin Sodium Potassium Chloride Carbon Dioxide BUN Creatinine Glucose POC Glucose 220 H 194 H 182 H Calcium Phosphorus Magnesium AST ALT Alkaline Phosphatase Troponin T C-Reactive Protein Total Protein Albumin Triglycerides HDL Cholesterol Miscellaneous Test Crossmatch 09/09/17 09/09/17 09/09/17 03:37 03:37 05:29 WBC 33.5 H RBC 2.36 L Hgb 6.7 L Hct 20.9 L MCV MCH RDW 22.7 H Plt Count Lymph % (Auto) [place] % (Auto) [place] # Seg Neutrophils % Seg Neuts % (Manual) Lymphocytes % (Manual) Monocytes % (Manual) Nucleated RBC % Seg Neutrophils # Seg Neutrophils # Man Lymphocytes # (Manual) Monocytes # (Manual) Eosinophils # (Manual) Basophils # (Manual) PT INR POC ABG pH ABG pH POC ABG pCO2 POC ABG pO2 ABG pO2 ABG O2 Saturation ABG Base Excess ABG Hemoglobin Oxyhemoglobin Sodium 132 L Potassium Chloride 91.6 L Carbon Dioxide 21 L BUN 101 H Creatinine 2.6 H Glucose 156 H POC Glucose 168 H Calcium 8.3 L Phosphorus 5.90 H Magnesium 2.60 H AST ALT Alkaline Phosphatase Troponin T C-Reactive Protein Total Protein Albumin Triglycerides HDL Cholesterol Miscellaneous Test Crossmatch 09/09/17 09/09/17 09/09/17 12:03 18:05 23:30 WBC RBC Hgb Hct MCV MCH RDW Plt Count Lymph % (Auto) [place] % (Auto) [place] # Seg Neutrophils % Seg Neuts % (Manual) Lymphocytes % (Manual) Monocytes % (Manual) Nucleated RBC % Seg Neutrophils # Seg Neutrophils # Man Lymphocytes # (Manual) Monocytes # (Manual) Eosinophils # (Manual) Basophils # (Manual) PT INR POC ABG pH ABG pH POC ABG pCO2 POC ABG pO2 ABG pO2 ABG O2 Saturation ABG Base Excess ABG Hemoglobin Oxyhemoglobin Sodium Potassium Chloride Carbon Dioxide BUN Creatinine Glucose POC Glucose 143 H 173 H 212 H Calcium Phosphorus Magnesium AST ALT Alkaline Phosphatase Troponin T C-Reactive Protein Total Protein Albumin Triglycerides HDL Cholesterol Miscellaneous Test Crossmatch 09/09/17 09/10/17 09/10/17 Unknown 05:04 07:00 WBC RBC Hgb Hct MCV MCH RDW Plt Count Lymph % (Auto) [place] % (Auto) [place] # Seg Neutrophils % Seg Neuts % (Manual) Lymphocytes % (Manual) Monocytes % (Manual) Nucleated RBC % Seg Neutrophils # Seg Neutrophils # Man Lymphocytes # (Manual) Monocytes # (Manual) Eosinophils # (Manual) Basophils # (Manual) PT INR POC ABG pH ABG pH 7.323 L POC ABG pCO2 POC ABG pO2 ABG pO2 94.1 H ABG O2 Saturation ABG Base Excess -4.8 L ABG Hemoglobin 8.0 L Oxyhemoglobin 94.9 L Sodium Potassium Chloride 97.9 L Carbon Dioxide BUN 78 H Creatinine 2.0 H Glucose 126 H POC Glucose 155 H Calcium 8.2 L Phosphorus Magnesium AST ALT Alkaline Phosphatase Troponin T C-Reactive Protein Total Protein Albumin Triglycerides HDL Cholesterol Miscellaneous Test Crossmatch
[2017-09-10] MEDS ORDERED: SILVER NITRATE TP ONE (10:00)
[2017-09-10 10:22] LABS: Hematocrit 22.5 % (30.3-42.9); Hemoglobin 7.5 gm/dl (10.1-14.3); Mean Corpuscular HGB Conc 33 % (30-34); Mean Corpuscular Hemoglobin 29 pg (28-32); Mean Corpuscular Volume 86 fl (79-97); Platelet Count 172 K/mm3 (140-440); Red Blood Count 2.62 M/mm3 (3.65-5.03)
[2017-09-10 10:24] LABS: Red Cell Distribution Width 20.8 % (13.2-15.2); White Blood Count 24.7 K/mm3 (4.5-11.0)
[2017-09-10] MEDS: LEVEMIR SUB-Q SCH (11:07)
[2017-09-10] MEDS: DIFLUCAN 200 MG/100 ML BAG IV SCH (11:09)
[2017-09-10] MEDS: PROTONIX IV SCH (11:10)
[2017-09-10] MEDS: ZYVOX 600MG/300ML 600 MG/300 ML BAG IV SCH (11:10)
[2017-09-10] MEDS: Vasostrict 20 UNIT in NACL 0.9% 100 ML IV SCH ×2 (12:10→21:29)
--- NOTE | 2017-09-10 12:32 | Progress Note ---
Assessment and Plan Assessment: 1) Sepsis with septic shock: still on levophed with higher requirements, leukocytosis better today; new source ? GI bleed . Repeat CT no abscess no collection. -CRP= 34 -->30 -->19-->0.1 ->2.8 -procalcitonin=1.3 -->7.6 -->3.9 2) Bowel obstruction / suspect ?gastric perforation ? peritonitis -S/P Exlap, G-tube placement, EGD, abdominal washout and removal of PD -OR findings - bowel obstruction due to entanglement of PD cath, abscess cavity in LUQ and ? suspect perforation of unclear location 3) CA-UTI: chronic ivan exchanged every 4 weeks and ureteral stents in place which are exchanged every 6 months ? urine cultures still pending should r/o MDR bacteria 4) Paraplegia 5) ESRD on PD - no evidence of peritonitis, wbc count 2. [employer] and Diphteroids on peritoneal fluid likely contaminants. 6) Recent pancreatitis 7) Penicillin allergy-has taken keflex w/o problems 8) Presumed Surgical wound infection / dehiscence ? 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 11) Sacral stage II 12) Anemia- severe- Hg 6.7 today Plan: -Surgery to repeat methylene blue test -stop zyvox day 8 in view of anemia -start dapto IV day 1 and continue fluconazole day 8 of 10 to cover wound infection -continue meropenem 3 7 -monitor leukocytosis -wound care poor prognosis Thank you Dr De Leon for your consultation, will follow up with you. Ramya Lang MD Infectious Diseases Specialist [facility] ([facility] M [phone] O [phone] Subjective Date of service: 09/10/17 Principal diagnosis: rectal bleeding Interval history: Pt remains intubated on the vent on levophed at 15, on TPN, fentanyl, no fever. Went to the OR for a trach. Microbiology: Blood cultures: 08/08 neg 08/12 neg 08/16 neg 08/20 neg 08/29 neg 09/06 ngtd Urine cultures: 08/08 10-100K skin graec Respiratory cultures: 08/30 tracheal asp MRSA Wound cultures: 08/26 Staph aureus and Rkistine 08/28 MRSA, E faecalis, Kristine albicans Stool cultures: Other: 08/08 peritoneal fluid + [employer]/Diphteroids Current Antimicrobials: zyvox 09/03 fluconazole 09/03 meropenem 09/09 Previous Antimicrobials: 08/10 levaquin 08/16 vancomycin 08/13 meropenem 08/16 fluconazole Micafungin 08/29 meropenem 08/29 Objective - Exam Narrative Exam: General appearance: sedated on vent via trach Eyes: anicteric sclerae, moist conjunctivae; no lid-lag; PERRLA HENT: Atraumatic; NGT Neck: Trach in place Lungs: coarse BS moreno CV: RRR, no murmurs Abdomen: soft, midline surgical wound with surtures. Gtube. drain Extremities: + peripheral edema + leg ulcer no drainage Skin: right groin old fem line wound no erythema, no drainage Psych: sedated. Neuro: sedated Lines: right IJ vas cath / Right IJ Nair 08/16 - Constitutional Vitals: Vital Signs Temp Pulse Resp BP Pulse Ox 99.3 F 97 H 20 96/45 100 09/10/17 08:00 09/10/17 08:38 09/10/17 08:38 09/10/17 08:25 09/10/17 08:25 Temperature -Last 24 Hours Temperature 99.3 F Temperature 155 F Temperature 99.1 F Temperature 99.9 F Temperature 98.7 F Temperature 98.7 F Temperature 98.5 F Temperature 98.7 F Temperature 98.7 F Temperature 98.7 F Temperature 98.6 F - Labs CBC & Chem 7: 09/10/17 09:55 09/10/17 07:00 Labs: Abnormal lab results 09/03/17 09/07/17 09/09/17 Range/Units 16:55 17:07 18:05 WBC (4.5-11.0) K/mm3 RBC (3.65-5.03) M/mm3 Hgb (10.1-14.3) gm/dl Hct (30.3-42.9) % RDW (13.2-15.2) % Chloride (98-107) mmol/L BUN (7-17) mg/dL Creatinine (0.7-1.2) mg/dL Glucose (65-100) mg/dL POC Glucose 173 H (70-105) Calcium (8.4-10.2) mg/dL Crossmatch See Detail See Detail 09/09/17 09/10/17 09/10/17 Range/Units 23:30 05:04 07:00 WBC (4.5-11.0) K/mm3 RBC (3.65-5.03) M/mm3 Hgb (10.1-14.3) gm/dl Hct (30.3-42.9) % RDW (13.2-15.2) % Chloride 97.9 L (98-107) mmol/L BUN 78 H (7-17) mg/dL Creatinine 2.0 H (0.7-1.2) mg/dL Glucose 126 H (65-100) mg/dL POC Glucose 212 H 155 H (70-105) Calcium 8.2 L (8.4-10.2) mg/dL Crossmatch 09/10/17 09/10/17 Range/Units 09:55 12:22 WBC 24.7 H (4.5-11.0) K/mm3 RBC 2.62 L (3.65-5.03) M/mm3 Hgb 7.5 L (10.1-14.3) gm/dl Hct 22.5 L (30.3-42.9) % RDW 20.8 H (13.2-15.2) % Chloride (98-107) mmol/L BUN (7-17) mg/dL Creatinine (0.7-1.2) mg/dL Glucose (65-100) mg/dL POC Glucose 183 H (70-105) Calcium (8.4-10.2) mg/dL Crossmatch
--- NOTE | 2017-09-10 13:03 | Progress Note ---
Assessment and Plan 62 y.o. F s/p ex lap, abdominal wash out and abdominal wall closure after wound dehiscence 2 weeks s/p ex lap for gastric perforation and sbo. Sepsis: Pt requiring levo, with requirements increased during HD. Steroids off . Source of sepsis unknown. Recent CT abd pelvis does not show any collections. Rec. follow blood cultures. F/u cultures. -Wound care following wounds on legs/sacrum -leukocytosis improving - ID following VDRF: s/p trach. GI bleed-resolved: Pt started to have melena now resolved. The source is likely lower GI since G tube has remained bilious. If bleeding continues rec bleeding scan for possible source. Prev Gastric perf: Continue NG to intermit. low wall suction If G tube output continues to decrease and the pt does not have signs of ileus, we will perform methylene blue test a bedside via NG tube to assess the status of the prev. perforation (possible Wed) - If perf healed, will do clamp trial of G tube to asses if she could then be started on trickle feeds. The goal is for pt to be started on trickle enteric feeds however these cannot be started until healing of the previous gastric perf is confirmed. Nutrition: TPN at 77- replace G tube losses though she is renal? Renal to manage fluids. -MERVIN continues to be drk red- on recent ex lap a hematoma was inferior to stomach to noted but no active bleeding. MERVIN contents may rep breaking down of old clot. Rec. trend H and H. s/p one unit prbc yesterday during HD with appropr. response. DVT proph: scds hold hep with GI bleed. GI: PPI. - Patient Problems (1) Peritonitis (acute) generalized Current Visit: Yes Status: Acute Subjective Narrative: HD yesterday with tranfusion of one unit prbc. Levo requirements increased. Family at bedside. NG 20cc G 220cc bilious MERVIN 180cc drk red. no clots. Objective Vital Signs - 12hr 09/10/17 09/10/17 09/10/17 01:00 01:16 01:30 Temperature Pulse Rate 104 H 91 H Pulse Rate [ Anterior Bilateral Throughout] Pulse Rate [ From Monitor] Pulse Rate [ Throughout] Respiratory 19 16 Rate Respiratory Rate [Anterior Bilateral Throughout] Respiratory Rate [ Throughout] Blood Pressure 98/41 86/57 104/44 O2 Sat by Pulse 99 100 100 Oximetry 09/10/17 09/10/17 09/10/17 01:46 02:00 02:08 Temperature Pulse Rate 99 H 91 H Pulse Rate [ Anterior Bilateral Throughout] Pulse Rate [ From Monitor] Pulse Rate [ 92 H Throughout] Respiratory 13 24 Rate Respiratory Rate [Anterior Bilateral Throughout] Respiratory 20 Rate [ Throughout] Blood Pressure 105/50 101/46 O2 Sat by Pulse 100 100 Oximetry 09/10/17 09/10/17 09/10/17 02:16 02:21 02:30 Temperature Pulse Rate 100 H 95 H Pulse Rate [ Anterior Bilateral Throughout] Pulse Rate [ From Monitor] Pulse Rate [ 94 H Throughout] Respiratory 12 11 L Rate Respiratory Rate [Anterior Bilateral Throughout] Respiratory 20 Rate [ Throughout] Blood Pressure 121/86 121/86 O2 Sat by Pulse 100 100 Oximetry 09/10/17 09/10/17 09/10/17 02:46 03:00 03:15 Temperature Pulse Rate 93 H 92 H 93 H Pulse Rate [ Anterior Bilateral Throughout] Pulse Rate [ From Monitor] Pulse Rate [ Throughout] Respiratory 17 20 12 Rate Respiratory Rate [Anterior Bilateral Throughout] Respiratory Rate [ Throughout] Blood Pressure 86/54 86/54 91/50 O2 Sat by Pulse 100 100 100 Oximetry 09/10/17 09/10/17 09/10/17 03:30 03:45 03:55 Temperature 99.1 F Pulse Rate 94 H 94 H Pulse Rate [ Anterior Bilateral Throughout] Pulse Rate [ From Monitor] Pulse Rate [ Throughout] Respiratory 15 14 Rate Respiratory Rate [Anterior Bilateral Throughout] Respiratory Rate [ Throughout] Blood Pressure 86/54 100/43 O2 Sat by Pulse 100 100 Oximetry 09/10/17 09/10/17 09/10/17 04:00 04:15 04:30 Temperature Pulse Rate 96 H 99 H 91 H Pulse Rate [ Anterior Bilateral Throughout] Pulse Rate [ 96 H From Monitor] Pulse Rate [ Throughout] Respiratory 19 18 12 Rate Respiratory Rate [Anterior Bilateral Throughout] Respiratory Rate [ Throughout] Blood Pressure 97/48 81/57 81/57 O2 Sat by Pulse 100 100 100 Oximetry 09/10/17 09/10/17 09/10/17 04:45 05:00 05:09 Temperature 155 F H Pulse Rate 93 H 96 H Pulse Rate [ Anterior Bilateral Throughout] Pulse Rate [ From Monitor] Pulse Rate [ Throughout] Respiratory 13 15 Rate Respiratory Rate [Anterior Bilateral Throughout] Respiratory Rate [ Throughout] Blood Pressure 91/51 93/41 O2 Sat by Pulse 100 100 Oximetry 09/10/17 09/10/17 09/10/17 05:15 05:30 05:45 Temperature Pulse Rate 92 H 91 H 95 H Pulse Rate [ Anterior Bilateral Throughout] Pulse Rate [ From Monitor] Pulse Rate [ Throughout] Respiratory 14 13 14 Rate Respiratory Rate [Anterior Bilateral Throughout] Respiratory Rate [ Throughout] Blood Pressure 81/45 93/51 96/46 O2 Sat by Pulse 100 100 100 Oximetry 09/10/17 09/10/17 09/10/17 06:00 06:15 06:30 Temperature Pulse Rate 96 H 93 H 94 H Pulse Rate [ Anterior Bilateral Throughout] Pulse Rate [ From Monitor] Pulse Rate [ Throughout] Respiratory 14 18 13 Rate Respiratory Rate [Anterior Bilateral Throughout] Respiratory Rate [ Throughout] Blood Pressure 98/46 94/41 89/65 O2 Sat by Pulse 100 100 100 Oximetry 09/10/17 09/10/17 09/10/17 06:45 07:00 07:15 Temperature Pulse Rate 94 H 97 H 94 H Pulse Rate [ Anterior Bilateral Throughout] Pulse Rate [ From Monitor] Pulse Rate [ Throughout] Respiratory 14 21 20 Rate Respiratory Rate [Anterior Bilateral Throughout] Respiratory Rate [ Throughout] Blood Pressure 93/43 85/41 103/47 O2 Sat by Pulse 100 99 100 Oximetry 09/10/17 09/10/17 09/10/17 07:30 07:45 08:00 Temperature 99.3 F Pulse Rate 91 H 96 H Pulse Rate [ Anterior Bilateral Throughout] Pulse Rate [ From Monitor] Pulse Rate [ Throughout] Respiratory 18 21 Rate Respiratory Rate [Anterior Bilateral Throughout] Respiratory Rate [ Throughout] Blood Pressure 101/43 87/47 O2 Sat by Pulse 100 100 Oximetry 09/10/17 09/10/17 09/10/17 08:25 08:29 08:38 Temperature Pulse Rate 98 H Pulse Rate [ 96 H 97 H Anterior Bilateral Throughout] Pulse Rate [ From Monitor] Pulse Rate [ Throughout] Respiratory Rate Respiratory 20 20 Rate [Anterior Bilateral Throughout] Respiratory Rate [ Throughout] Blood Pressure 96/45 O2 Sat by Pulse 100 Oximetry 09/10/17 12:00 Temperature 98.9 F Pulse Rate Pulse Rate [ Anterior Bilateral Throughout] Pulse Rate [ From Monitor] Pulse Rate [ Throughout] Respiratory Rate Respiratory Rate [Anterior Bilateral Throughout] Respiratory Rate [ Throughout] Blood Pressure O2 Sat by Pulse Oximetry - General physical appearance no distress, obese - ENT other (NG and trach ) - Respiratory normal expansion - Abdomen soft, other (no grimace with palpation. midline packing removed. Minimal clot at base of superior wound. serosang discharge. punctate bleeding at skin edge on inferior portion of wound-hemostasis obtained with pressure. repacked with kerlex, and covered. ) - Musculoskeletal other (+3 edema upper and lower extremities. ) - Labs 09/10/17 09:55 09/10/17 07:00 Diabetes panel 09/10/17 Range/Units 07:00 Sodium 138 (137-145) mmol/L Potassium 3.7 (3.6-5.0) mmol/L Chloride 97.9 L (98-107) mmol/L Carbon Dioxide 24 (22-30) mmol/L BUN 78 H (7-17) mg/dL Creatinine 2.0 H (0.7-1.2) mg/dL Glucose 126 H (65-100) mg/dL Calcium 8.2 L (8.4-10.2) mg/dL Calcium panel 09/10/17 Range/Units 07:00 Calcium 8.2 L (8.4-10.2) mg/dL Phosphorus 4.00 D (2.5-4.5) mg/dL Pituitary panel 09/10/17 Range/Units 07:00 Sodium 138 (137-145) mmol/L Potassium 3.7 (3.6-5.0) mmol/L Chloride 97.9 L (98-107) mmol/L Carbon Dioxide 24 (22-30) mmol/L BUN 78 H (7-17) mg/dL Creatinine 2.0 H (0.7-1.2) mg/dL Glucose 126 H (65-100) mg/dL Calcium 8.2 L (8.4-10.2) mg/dL Adrenal panel 09/10/17 Range/Units 07:00 Sodium 138 (137-145) mmol/L Potassium 3.7 (3.6-5.0) mmol/L Chloride 97.9 L (98-107) mmol/L Carbon Dioxide 24 (22-30) mmol/L BUN 78 H (7-17) mg/dL Creatinine 2.0 H (0.7-1.2) mg/dL Glucose 126 H (65-100) mg/dL Calcium 8.2 L (8.4-10.2) mg/dL
[2017-09-10] MEDS: LEVOPHED 8 MG in NACL 0.9% 250ML 242 ML IV SCH ×2 (13:05→21:29)
[2017-09-10] MEDS: MERREM 1,000 MG in NACL 0.9% 100 ML IV SCH (14:32)
[2017-09-10] MEDS: NACL 0.9% IV SCH (14:49)
[2017-09-10] MEDS: CUBICIN IV SCH (14:49)
[2017-09-10] MEDS: fentaNYL DRIP Premix 2,000 MCG/100 ML BAG IV SCH (14:49)
--- NOTE | 2017-09-10 15:05 | Progress Note ---
Assessment and Plan Continue supportive care. Doing well post op. No further tx for this problem. Will sign off. Subjective Date of service: 09/10/17 Patient Reports: Positive: other (no changes. receiving HD. s/p trache) Objective Vital Signs - 12hr 09/10/17 09/10/17 09/10/17 03:15 03:30 03:45 Temperature Pulse Rate 93 H 94 H 94 H Pulse Rate [ Anterior Bilateral Throughout] Pulse Rate [ From Monitor] Respiratory 12 15 14 Rate Respiratory Rate [Anterior Bilateral Throughout] Blood Pressure 91/50 86/54 100/43 O2 Sat by Pulse 100 100 100 Oximetry O2 Sat by Pulse Oximetry [ Anterior Bilateral Throughout] O2 Sat by Pulse Oximetry [ Assessment] 09/10/17 09/10/17 09/10/17 03:55 04:00 04:15 Temperature 99.1 F Pulse Rate 96 H 99 H Pulse Rate [ Anterior Bilateral Throughout] Pulse Rate [ 96 H From Monitor] Respiratory 19 18 Rate Respiratory Rate [Anterior Bilateral Throughout] Blood Pressure 97/48 81/57 O2 Sat by Pulse 100 100 Oximetry O2 Sat by Pulse Oximetry [ Anterior Bilateral Throughout] O2 Sat by Pulse Oximetry [ Assessment] 09/10/17 09/10/17 09/10/17 04:30 04:45 05:00 Temperature Pulse Rate 91 H 93 H 96 H Pulse Rate [ Anterior Bilateral Throughout] Pulse Rate [ From Monitor] Respiratory 12 13 15 Rate Respiratory Rate [Anterior Bilateral Throughout] Blood Pressure 81/57 91/51 93/41 O2 Sat by Pulse 100 100 100 Oximetry O2 Sat by Pulse Oximetry [ Anterior Bilateral Throughout] O2 Sat by Pulse Oximetry [ Assessment] 09/10/17 09/10/17 09/10/17 05:09 05:15 05:30 Temperature 155 F H Pulse Rate 92 H 91 H Pulse Rate [ Anterior Bilateral Throughout] Pulse Rate [ From Monitor] Respiratory 14 13 Rate Respiratory Rate [Anterior Bilateral Throughout] Blood Pressure 81/45 93/51 O2 Sat by Pulse 100 100 Oximetry O2 Sat by Pulse Oximetry [ Anterior Bilateral Throughout] O2 Sat by Pulse Oximetry [ Assessment] 09/10/17 09/10/17 09/10/17 05:45 06:00 06:15 Temperature Pulse Rate 95 H 96 H 93 H Pulse Rate [ Anterior Bilateral Throughout] Pulse Rate [ From Monitor] Respiratory 14 14 18 Rate Respiratory Rate [Anterior Bilateral Throughout] Blood Pressure 96/46 98/46 94/41 O2 Sat by Pulse 100 100 100 Oximetry O2 Sat by Pulse Oximetry [ Anterior Bilateral Throughout] O2 Sat by Pulse Oximetry [ Assessment] 09/10/17 09/10/17 09/10/17 06:30 06:45 07:00 Temperature Pulse Rate 94 H 94 H 97 H Pulse Rate [ Anterior Bilateral Throughout] Pulse Rate [ From Monitor] Respiratory 13 14 21 Rate Respiratory Rate [Anterior Bilateral Throughout] Blood Pressure 89/65 93/43 85/41 O2 Sat by Pulse 100 100 99 Oximetry O2 Sat by Pulse Oximetry [ Anterior Bilateral Throughout] O2 Sat by Pulse Oximetry [ Assessment] 09/10/17 09/10/17 09/10/17 07:15 07:30 07:45 Temperature Pulse Rate 94 H 91 H 96 H Pulse Rate [ Anterior Bilateral Throughout] Pulse Rate [ From Monitor] Respiratory 20 18 21 Rate Respiratory Rate [Anterior Bilateral Throughout] Blood Pressure 103/47 101/43 87/47 O2 Sat by Pulse 100 100 100 Oximetry O2 Sat by Pulse Oximetry [ Anterior Bilateral Throughout] O2 Sat by Pulse Oximetry [ Assessment] 09/10/17 09/10/17 09/10/17 08:00 08:15 08:25 Temperature 99.3 F Pulse Rate 96 H 96 H 98 H Pulse Rate [ Anterior Bilateral Throughout] Pulse Rate [ From Monitor] Respiratory 17 20 Rate Respiratory Rate [Anterior Bilateral Throughout] Blood Pressure 101/49 96/45 96/45 O2 Sat by Pulse 100 100 100 Oximetry O2 Sat by Pulse Oximetry [ Anterior Bilateral Throughout] O2 Sat by Pulse Oximetry [ Assessment] 09/10/17 09/10/17 09/10/17 08:29 08:30 08:38 Temperature Pulse Rate 102 H Pulse Rate [ 96 H 97 H Anterior Bilateral Throughout] Pulse Rate [ From Monitor] Respiratory 14 Rate Respiratory 20 20 Rate [Anterior Bilateral Throughout] Blood Pressure 96/45 O2 Sat by Pulse 100 Oximetry O2 Sat by Pulse Oximetry [ Anterior Bilateral Throughout] O2 Sat by Pulse Oximetry [ Assessment] 09/10/17 09/10/17 09/10/17 08:45 09:00 09:16 Temperature Pulse Rate 95 H 100 H 99 H Pulse Rate [ Anterior Bilateral Throughout] Pulse Rate [ From Monitor] Respiratory 17 18 21 Rate Respiratory Rate [Anterior Bilateral Throughout] Blood Pressure 104/45 97/44 105/44 O2 Sat by Pulse 100 100 100 Oximetry O2 Sat by Pulse Oximetry [ Anterior Bilateral Throughout] O2 Sat by Pulse Oximetry [ Assessment] 09/10/17 09/10/17 09/10/17 09:30 09:46 10:00 Temperature Pulse Rate 105 H 105 H 103 H Pulse Rate [ Anterior Bilateral Throughout] Pulse Rate [ From Monitor] Respiratory 20 15 20 Rate Respiratory Rate [Anterior Bilateral Throughout] Blood Pressure 108/53 86/33 100/49 O2 Sat by Pulse 100 100 100 Oximetry O2 Sat by Pulse Oximetry [ Anterior Bilateral Throughout] O2 Sat by Pulse Oximetry [ Assessment] 09/10/17 09/10/17 09/10/17 10:15 10:30 10:45 Temperature Pulse Rate 102 H 108 H 107 H Pulse Rate [ Anterior Bilateral Throughout] Pulse Rate [ From Monitor] Respiratory 20 25 H 20 Rate Respiratory Rate [Anterior Bilateral Throughout] Blood Pressure 101/47 101/47 101/49 O2 Sat by Pulse 100 100 100 Oximetry O2 Sat by Pulse Oximetry [ Anterior Bilateral Throughout] O2 Sat by Pulse Oximetry [ Assessment] 09/10/17 09/10/17 09/10/17 11:00 11:15 11:30 Temperature Pulse Rate 104 H 103 H 103 H Pulse Rate [ Anterior Bilateral Throughout] Pulse Rate [ From Monitor] Respiratory 17 17 13 Rate Respiratory Rate [Anterior Bilateral Throughout] Blood Pressure 101/44 92/41 93/41 O2 Sat by Pulse 100 100 100 Oximetry O2 Sat by Pulse Oximetry [ Anterior Bilateral Throughout] O2 Sat by Pulse Oximetry [ Assessment] 09/10/17 09/10/17 09/10/17 11:45 12:00 12:15 Temperature 98.9 F Pulse Rate 104 H 103 H 104 H Pulse Rate [ Anterior Bilateral Throughout] Pulse Rate [ From Monitor] Respiratory 20 13 20 Rate Respiratory Rate [Anterior Bilateral Throughout] Blood Pressure 106/49 101/70 101/42 O2 Sat by Pulse 100 100 100 Oximetry O2 Sat by Pulse Oximetry [ Anterior Bilateral Throughout] O2 Sat by Pulse Oximetry [ Assessment] 09/10/17 09/10/17 09/10/17 12:30 12:45 12:58 Temperature Pulse Rate 104 H 100 H 99 H Pulse Rate [ Anterior Bilateral Throughout] Pulse Rate [ From Monitor] Respiratory 19 20 Rate Respiratory Rate [Anterior Bilateral Throughout] Blood Pressure 104/63 109/55 109/55 O2 Sat by Pulse 100 100 100 Oximetry O2 Sat by Pulse Oximetry [ Anterior Bilateral Throughout] O2 Sat by Pulse Oximetry [ Assessment] 09/10/17 09/10/17 09/10/17 13:00 13:15 13:30 Temperature 98.9 F Pulse Rate 102 H 96 H 95 H Pulse Rate [ Anterior Bilateral Throughout] Pulse Rate [ From Monitor] Respiratory 15 20 20 Rate Respiratory Rate [Anterior Bilateral Throughout] Blood Pressure 109/55 124/53 124/53 O2 Sat by Pulse 100 100 100 Oximetry O2 Sat by Pulse 100 Oximetry [ Anterior Bilateral Throughout] O2 Sat by Pulse 100 Oximetry [ Assessment] 09/10/17 09/10/17 09/10/17 13:45 13:46 13:52 Temperature Pulse Rate 93 H 93 H 91 H Pulse Rate [ Anterior Bilateral Throughout] Pulse Rate [ From Monitor] Respiratory 12 Rate Respiratory Rate [Anterior Bilateral Throughout] Blood Pressure 82/44 82/44 81/39 O2 Sat by Pulse 100 Oximetry O2 Sat by Pulse Oximetry [ Anterior Bilateral Throughout] O2 Sat by Pulse Oximetry [ Assessment] 09/10/17 09/10/17 09/10/17 14:00 14:05 14:15 Temperature Pulse Rate 94 H 90 94 H Pulse Rate [ Anterior Bilateral Throughout] Pulse Rate [ From Monitor] Respiratory 15 Rate Respiratory Rate [Anterior Bilateral Throughout] Blood Pressure 94/72 92/45 124/50 O2 Sat by Pulse 100 Oximetry O2 Sat by Pulse Oximetry [ Anterior Bilateral Throughout] O2 Sat by Pulse Oximetry [ Assessment] 09/10/17 09/10/17 09/10/17 14:16 14:30 14:32 Temperature Pulse Rate 89 95 H 92 H Pulse Rate [ Anterior Bilateral Throughout] Pulse Rate [ From Monitor] Respiratory 18 19 Rate Respiratory Rate [Anterior Bilateral Throughout] Blood Pressure 124/50 112/58 112/58 O2 Sat by Pulse 100 100 Oximetry O2 Sat by Pulse Oximetry [ Anterior Bilateral Throughout] O2 Sat by Pulse Oximetry [ Assessment] 09/10/17 09/10/17 14:45 14:46 Temperature Pulse Rate 97 H 95 H Pulse Rate [ Anterior Bilateral Throughout] Pulse Rate [ From Monitor] Respiratory 22 Rate Respiratory Rate [Anterior Bilateral Throughout] Blood Pressure 107/56 107/56 O2 Sat by Pulse 100 Oximetry O2 Sat by Pulse Oximetry [ Anterior Bilateral Throughout] O2 Sat by Pulse Oximetry [ Assessment] - General physical appearance no distress - Neck trachea midline, other (trache in place) - Respiratory normal respiratory effort - Labs 09/10/17 09:55 09/10/17 07:00 Diabetes panel 09/10/17 Range/Units 07:00 Sodium 138 (137-145) mmol/L Potassium 3.7 (3.6-5.0) mmol/L Chloride 97.9 L (98-107) mmol/L Carbon Dioxide 24 (22-30) mmol/L BUN 78 H (7-17) mg/dL Creatinine 2.0 H (0.7-1.2) mg/dL Glucose 126 H (65-100) mg/dL Calcium 8.2 L (8.4-10.2) mg/dL Calcium panel 09/10/17 Range/Units 07:00 Calcium 8.2 L (8.4-10.2) mg/dL Phosphorus 4.00 D (2.5-4.5) mg/dL Pituitary panel 09/10/17 Range/Units 07:00 Sodium 138 (137-145) mmol/L Potassium 3.7 (3.6-5.0) mmol/L Chloride 97.9 L (98-107) mmol/L Carbon Dioxide 24 (22-30) mmol/L BUN 78 H (7-17) mg/dL Creatinine 2.0 H (0.7-1.2) mg/dL Glucose 126 H (65-100) mg/dL Calcium 8.2 L (8.4-10.2) mg/dL Adrenal panel 09/10/17 Range/Units 07:00 Sodium 138 (137-145) mmol/L Potassium 3.7 (3.6-5.0) mmol/L Chloride 97.9 L (98-107) mmol/L Carbon Dioxide 24 (22-30) mmol/L BUN 78 H (7-17) mg/dL Creatinine 2.0 H (0.7-1.2) mg/dL Glucose 126 H (65-100) mg/dL Calcium 8.2 L (8.4-10.2) mg/dL
--- NOTE | 2017-09-10 16:27 | Progress Note ---
Assessment and Plan /Acute hypoxic respiratory failure on MV > 96 hours continue ventilator support, s/p tracheostomy on 09/09/17, has failed extubation multiple times /Sepsis secondary to peritonitis, Intra abdominal abscess and Bowel obstruction - Patient had completed 14 days of meropenem and diflucan, was restarted again due to fever/septic shock - continue abx per ID recommendation - she has had the following procedures 08/31: Ex lap with abdominal wash out and closure 08/17: Ex lap with G tube placement, EGD, abdominal wash out and removal of PD Cath -taper steroids /Acute rectal bleeding with severe acute blood loss anemia -EGD showed small gastric ulcer -s/p multiple transfusions -- GI consult appreciated - Patient had CTA of abdomen and pelvis no active bleeding, CT Abdomen repeated 09/06, no acute findings - transfuse to keep Hg above 8 given septic shock - continue PPI drip, too unstable for C scope at this time - wean steroids /Melana, GIB likely from PUD -start PPI drip, keep NPO, monitor Hg and transfuse to keep above 8 -wean off steroids. /Ulcerative esophagitis/small gastric ulcer on EGD - IV pantoprazole /ESRD -continue HD per renal per femoral HD cath -needs perm cath when improved /Septic shock. - continue IV pressors, wean off as needed continue abx, ID input appreciated /Severe Protein calorie malnutrition - Continue with TPN /Sacral and lower extremity wound, POA - continue wound care /NSVT likely due to levophed, wean as tolerated cardiology input appreciated /DVT prophylaxis; SCDs - D/C Heparin because of GI bleed Disposition: continue ICU care Prognosis: guarded The high probability of a clinically significant, sudden or life threatening deterioration of the [cv, pulmonary and GI] system(s) required my full and direct attention, intervention and personal management. The aggregate critical care time was [33] minutes. This time is in addition to time spent performing reported procedures but includes the following: [] Data Review and interpretation [] Patient assessment and monitoring of vital signs [] Documentation [] Medication orders and management Brief History: 62 YO Female with MO, ESRD-PD (with PD cath in place )(Daily), HTN, OA, Ischemic Cardiomyopathy currently on Milrinone, Chronic Pain who came to ED with lightheaded and syncope, she c/o abdomnal pain x 2 days, was found to have hypotension, septic shock and intra-abdominal abscess. Hospitalist Physical - Physical exam Narrative exam: General.: Obese HEENT: Moist mucous membranes, extraocular muscles intact, no lymphadenopathy Neck: supple. no rigidity Cardiac: S1-S2 +ve Lungs: clear to auscultation bilaterally Abdomen: soft, bowel sounds normal, other (obese, soft, dressing not removed). drainage from PEG tube and drainage catheter noted Extremities: + edema no clubbing or cyanosis Skin: no rash or lesions Neurologic: Intubated, obeys commands, arousable Subjective Date of service: 09/10/17 Principal diagnosis: rectal bleeding Interval history: She has had no more episodes of melena today. s/p trach placement yesteroday Discussed with family at bedside Objective - Constitutional Vitals: Vital Signs - 12hr 09/10/17 09/10/17 09/10/17 04:30 04:45 05:00 Temperature Pulse Rate 91 H 93 H 96 H Pulse Rate [ Anterior Bilateral Throughout] Respiratory 12 13 15 Rate Respiratory Rate [Anterior Bilateral Throughout] Blood Pressure 81/57 91/51 93/41 O2 Sat by Pulse 100 100 100 Oximetry O2 Sat by Pulse Oximetry [ Anterior Bilateral Throughout] O2 Sat by Pulse Oximetry [ Assessment] 09/10/17 09/10/17 09/10/17 05:09 05:15 05:30 Temperature 155 F H Pulse Rate 92 H 91 H Pulse Rate [ Anterior Bilateral Throughout] Respiratory 14 13 Rate Respiratory Rate [Anterior Bilateral Throughout] Blood Pressure 81/45 93/51 O2 Sat by Pulse 100 100 Oximetry O2 Sat by Pulse Oximetry [ Anterior Bilateral Throughout] O2 Sat by Pulse Oximetry [ Assessment] 09/10/17 09/10/17 09/10/17 05:45 06:00 06:15 Temperature Pulse Rate 95 H 96 H 93 H Pulse Rate [ Anterior Bilateral Throughout] Respiratory 14 14 18 Rate Respiratory Rate [Anterior Bilateral Throughout] Blood Pressure 96/46 98/46 94/41 O2 Sat by Pulse 100 100 100 Oximetry O2 Sat by Pulse Oximetry [ Anterior Bilateral Throughout] O2 Sat by Pulse Oximetry [ Assessment] 09/10/17 09/10/17 09/10/17 06:30 06:45 07:00 Temperature Pulse Rate 94 H 94 H 97 H Pulse Rate [ Anterior Bilateral Throughout] Respiratory 13 14 21 Rate Respiratory Rate [Anterior Bilateral Throughout] Blood Pressure 89/65 93/43 85/41 O2 Sat by Pulse 100 100 99 Oximetry O2 Sat by Pulse Oximetry [ Anterior Bilateral Throughout] O2 Sat by Pulse Oximetry [ Assessment] 09/10/17 09/10/17 09/10/17 07:15 07:30 07:45 Temperature Pulse Rate 94 H 91 H 96 H Pulse Rate [ Anterior Bilateral Throughout] Respiratory 20 18 21 Rate Respiratory Rate [Anterior Bilateral Throughout] Blood Pressure 103/47 101/43 87/47 O2 Sat by Pulse 100 100 100 Oximetry O2 Sat by Pulse Oximetry [ Anterior Bilateral Throughout] O2 Sat by Pulse Oximetry [ Assessment] 09/10/17 09/10/17 09/10/17 08:00 08:15 08:25 Temperature 99.3 F Pulse Rate 96 H 96 H 98 H Pulse Rate [ Anterior Bilateral Throughout] Respiratory 17 20 Rate Respiratory Rate [Anterior Bilateral Throughout] Blood Pressure 101/49 96/45 96/45 O2 Sat by Pulse 100 100 100 Oximetry O2 Sat by Pulse Oximetry [ Anterior Bilateral Throughout] O2 Sat by Pulse Oximetry [ Assessment] 09/10/17 09/10/17 09/10/17 08:29 08:30 08:38 Temperature Pulse Rate 102 H Pulse Rate [ 96 H 97 H Anterior Bilateral Throughout] Respiratory 14 Rate Respiratory 20 20 Rate [Anterior Bilateral Throughout] Blood Pressure 96/45 O2 Sat by Pulse 100 Oximetry O2 Sat by Pulse Oximetry [ Anterior Bilateral Throughout] O2 Sat by Pulse Oximetry [ Assessment] 09/10/17 09/10/17 09/10/17 08:45 09:00 09:16 Temperature Pulse Rate 95 H 100 H 99 H Pulse Rate [ Anterior Bilateral Throughout] Respiratory 17 18 21 Rate Respiratory Rate [Anterior Bilateral Throughout] Blood Pressure 104/45 97/44 105/44 O2 Sat by Pulse 100 100 100 Oximetry O2 Sat by Pulse Oximetry [ Anterior Bilateral Throughout] O2 Sat by Pulse Oximetry [ Assessment] 09/10/17 09/10/17 09/10/17 09:30 09:46 10:00 Temperature Pulse Rate 105 H 105 H 99 H Pulse Rate [ Anterior Bilateral Throughout] Respiratory 20 15 20 Rate Respiratory Rate [Anterior Bilateral Throughout] Blood Pressure 108/53 86/33 100/49 O2 Sat by Pulse 100 100 100 Oximetry O2 Sat by Pulse Oximetry [ Anterior Bilateral Throughout] O2 Sat by Pulse Oximetry [ Assessment] 10/17/17 10/17/17 10/17/17 10:15 10:30 10:45 Temperature Pulse Rate 102 H 108 H 107 H Pulse Rate [ Anterior Bilateral Throughout] Respiratory 20 25 H 20 Rate Respiratory Rate [Anterior Bilateral Throughout] Blood Pressure 101/47 101/47 101/49 O2 Sat by Pulse 100 100 100 Oximetry O2 Sat by Pulse Oximetry [ Anterior Bilateral Throughout] O2 Sat by Pulse Oximetry [ Assessment] 09/10/17 09/10/17 09/10/17 11:00 11:15 11:30 Temperature Pulse Rate 104 H 103 H 103 H Pulse Rate [ Anterior Bilateral Throughout] Respiratory 17 17 13 Rate Respiratory Rate [Anterior Bilateral Throughout] Blood Pressure 101/44 92/41 93/41 O2 Sat by Pulse 100 100 100 Oximetry O2 Sat by Pulse Oximetry [ Anterior Bilateral Throughout] O2 Sat by Pulse Oximetry [ Assessment] 09/10/17 09/10/17 09/10/17 11:45 12:00 12:15 Temperature 98.9 F Pulse Rate 104 H 103 H 104 H Pulse Rate [ Anterior Bilateral Throughout] Respiratory 20 13 20 Rate Respiratory Rate [Anterior Bilateral Throughout] Blood Pressure 106/49 101/70 101/42 O2 Sat by Pulse 100 100 100 Oximetry O2 Sat by Pulse Oximetry [ Anterior Bilateral Throughout] O2 Sat by Pulse Oximetry [ Assessment] 09/10/17 09/10/17 09/10/17 12:30 12:45 12:58 Temperature Pulse Rate 104 H 100 H 99 H Pulse Rate [ Anterior Bilateral Throughout] Respiratory 19 20 Rate Respiratory Rate [Anterior Bilateral Throughout] Blood Pressure 104/63 109/55 109/55 O2 Sat by Pulse 100 100 100 Oximetry O2 Sat by Pulse Oximetry [ Anterior Bilateral Throughout] O2 Sat by Pulse Oximetry [ Assessment] 09/10/17 09/10/17 09/10/17 13:00 13:15 13:30 Temperature 98.9 F Pulse Rate 102 H 96 H 95 H Pulse Rate [ Anterior Bilateral Throughout] Respiratory 15 20 20 Rate Respiratory Rate [Anterior Bilateral Throughout] Blood Pressure 109/55 124/53 124/53 O2 Sat by Pulse 100 100 100 Oximetry O2 Sat by Pulse 100 Oximetry [ Anterior Bilateral Throughout] O2 Sat by Pulse 100 Oximetry [ Assessment] 09/10/17 09/10/17 09/10/17 13:45 13:46 13:52 Temperature Pulse Rate 93 H 93 H 91 H Pulse Rate [ Anterior Bilateral Throughout] Respiratory 12 Rate Respiratory Rate [Anterior Bilateral Throughout] Blood Pressure 82/44 82/44 81/39 O2 Sat by Pulse 100 Oximetry O2 Sat by Pulse Oximetry [ Anterior Bilateral Throughout] O2 Sat by Pulse Oximetry [ Assessment] 09/10/17 09/10/17 09/10/17 14:00 14:05 14:15 Temperature Pulse Rate 94 H 90 94 H Pulse Rate [ Anterior Bilateral Throughout] Respiratory 15 Rate Respiratory Rate [Anterior Bilateral Throughout] Blood Pressure 94/72 92/45 124/50 O2 Sat by Pulse 100 Oximetry O2 Sat by Pulse Oximetry [ Anterior Bilateral Throughout] O2 Sat by Pulse Oximetry [ Assessment] 09/10/17 09/10/17 09/10/17 14:16 14:30 14:32 Temperature Pulse Rate 89 95 H 92 H Pulse Rate [ Anterior Bilateral Throughout] Respiratory 18 19 Rate Respiratory Rate [Anterior Bilateral Throughout] Blood Pressure 124/50 112/58 112/58 O2 Sat by Pulse 100 100 Oximetry O2 Sat by Pulse Oximetry [ Anterior Bilateral Throughout] O2 Sat by Pulse Oximetry [ Assessment] 09/10/17 09/10/17 09/10/17 14:45 14:46 15:01 Temperature Pulse Rate 97 H 95 H 94 H Pulse Rate [ Anterior Bilateral Throughout] Respiratory 22 Rate Respiratory Rate [Anterior Bilateral Throughout] Blood Pressure 107/56 107/56 107/50 O2 Sat by Pulse 100 Oximetry O2 Sat by Pulse Oximetry [ Anterior Bilateral Throughout] O2 Sat by Pulse Oximetry [ Assessment] 09/10/17 09/10/17 09/10/17 15:15 15:33 15:49 Temperature Pulse Rate 98 H 95 H 102 H Pulse Rate [ Anterior Bilateral Throughout] Respiratory Rate Respiratory Rate [Anterior Bilateral Throughout] Blood Pressure 114/56 102/56 62/48 O2 Sat by Pulse Oximetry O2 Sat by Pulse Oximetry [ Anterior Bilateral Throughout] O2 Sat by Pulse Oximetry [ Assessment] 09/10/17 09/10/17 09/10/17 15:54 16:00 16:01 Temperature 98.5 F Pulse Rate 98 H 100 H Pulse Rate [ Anterior Bilateral Throughout] Respiratory Rate Respiratory Rate [Anterior Bilateral Throughout] Blood Pressure 110/58 105/52 O2 Sat by Pulse Oximetry O2 Sat by Pulse Oximetry [ Anterior Bilateral Throughout] O2 Sat by Pulse Oximetry [ Assessment] - Labs CBC & Chem 7: 09/10/17 09:55 09/10/17 07:00 Labs: Abnormal lab results 09/07/17 09/09/17 09/09/17 Range/Units 17:07 18:05 23:30 WBC (4.5-11.0) K/mm3 RBC (3.65-5.03) M/mm3 Hgb (10.1-14.3) gm/dl Hct (30.3-42.9) % RDW (13.2-15.2) % Chloride (98-107) mmol/L BUN (7-17) mg/dL Creatinine (0.7-1.2) mg/dL Glucose (65-100) mg/dL POC Glucose 173 H 212 H (70-105) Calcium (8.4-10.2) mg/dL Crossmatch See Detail 09/10/17 09/10/17 09/10/17 Range/Units 05:04 07:00 09:55 WBC 24.7 H (4.5-11.0) K/mm3 RBC 2.62 L (3.65-5.03) M/mm3 Hgb 7.5 L (10.1-14.3) gm/dl Hct 22.5 L (30.3-42.9) % RDW 20.8 H (13.2-15.2) % Chloride 97.9 L (98-107) mmol/L BUN 78 H (7-17) mg/dL Creatinine 2.0 H (0.7-1.2) mg/dL Glucose 126 H (65-100) mg/dL POC Glucose 155 H (70-105) Calcium 8.2 L (8.4-10.2) mg/dL Crossmatch 09/10/17 Range/Units 12:22 WBC (4.5-11.0) K/mm3 RBC (3.65-5.03) M/mm3 Hgb (10.1-14.3) gm/dl Hct (30.3-42.9) % RDW (13.2-15.2) % Chloride (98-107) mmol/L BUN (7-17) mg/dL Creatinine (0.7-1.2) mg/dL Glucose (65-100) mg/dL POC Glucose 183 H (70-105) Calcium (8.4-10.2) mg/dL Crossmatch
[2017-09-10] MEDS: HEPARIN IV PRN (16:42)
[2017-09-10] MEDS ORDERED: TPN ADULT 1,800 ML IV SCH (20:00)
--- NOTE | 2017-09-10 21:12 | Progress Note ---
Assessment and Plan - Patient Problems (1) Leukocytosis Current Visit: Yes Status: Acute Qualifiers: Leukocytosis type: L Plan to address problem: See notes above. make sure that PD access is clean also. see notes. Probably infection from the infected PD catheter. improving. back up again. up/down continue to monitor. it continuos to rise. still high. (2) Anemia Current Visit: Yes Status: Acute Qualifiers: Anemia type: A Iron deficiency anemia type: I Vitamin B12 deficiency anemia type: V Folate deficiency anemia type: F Bone marrow failure anemia type: B Hemolytic anemia type: H Other causes of anemia: O Chronic kidney disease stage: C Plan to address problem: see notes , monitor labs,. see notes above. continue to monitor labs with you. blood transfusion. S/P replacement transfusion. fair. s/p 1unit transfusion. see notes. (3) Acute respiratory failure Current Visit: Yes Status: Acute Qualifiers: Respiratory failure complication: R Plan to address problem: follow pulm. Subjective Date of service: 09/10/17 Principal diagnosis: rectal bleeding Interval history: Patient seen today/examined, labs reviewed, case d/w she, and family.complaints of abdominal pain. Patient resting in bed in the ICU, post vascular procedure. labs reviewed, Reactive thrombocytosis, anemia of CD, leukocytosis from infection vs inflamatory process. Patient seen/examined, in bed in the ICU, on the vent post surgery.Labs reviewed , notes reviewed. will continue to monitor labs/patient with you. Replacement transfusion, if /when indicated. patient seen/examined, SBP75, on pressors., lethargic, on the vent, labs reviewed, wbc 39,000 Patient seen/examined, case reviewed, d/w her sister at the bed side. Patient seen/examined, labs reviewed, notes reviewed. severe septic shock from infected PD catheter The high wbc is all infection related. H?H low, and may get replacement transfusion with the next HD. Prognosis remain quite poor. Patient seen/examined, extubated, now on V Mask. labs reviewed. patient seen/examined, resting in bed, still some what lethargic . labs reviewed. Patient seen/examined, resting in bed., some difficulty with breathing./ lethargic. patient seen/examined, resting in bed, looked much better labs reviewed, and fair over all. Patient seen/examined, resting in bed, labs reviewed, case d/w her. Patient seen/examined, resting in bed on BIPAP., labs reviewed. patient seen/examined, resting in bed, on Bipap.labs reviewed, fairly stable. Patient seen today, resting in bed, labs reviewed, H/H low, and transfusion already ordered. Patient seen/examined, resting in bed, transferred back to the unit, due to resp failure. She is now on venting mask. had blood replacement done. Patient seen/examined in the ICU.labs reviewed. patient intubated this am. patient resting in bed.no new issues. Patient seen/examined in the ICU, on vent,Not readily responsive. patient seen, resting in bed, no new cbc ready.will order for today. Patient seen, resting in vent, labs reviewed.notes reviewed also. patient seen/examined, resting on vent, had HD yesterday, and today., labs reviewed. Patient seen, resting in bed, labs reviewed.fairly stable labs, except the wbc. Patient seen/examined, rtesting in bed on the vent.Labs reviewed, wbc still elevated, Hgb dropped slightly. Patient seen/examined, labs reviewed, hgb 7.3, if 7.0 or less, will replace .unless otherwise indicated. Patient seen/examined, alert but lethargic.sedation drip turned down.she is s/p 1unit PRBC replacement with HD today. Patient seen/examined, labs reviewed, hgb still not quite enough at 7.5, perhaps with the next HD,can use 1-2 units. Objective - Constitutional Vitals: Vital Signs - 12hr 09/10/17 09/10/17 09/10/17 09:16 09:30 09:46 Temperature Pulse Rate 99 H 105 H 105 H Pulse Rate [ Anterior Bilateral Throughout] Respiratory 21 20 15 Rate Respiratory Rate [Anterior Bilateral Throughout] Blood Pressure 105/44 108/53 86/33 O2 Sat by Pulse 100 100 100 Oximetry O2 Sat by Pulse Oximetry [ Anterior Bilateral Throughout] O2 Sat by Pulse Oximetry [ Assessment] 09/10/17 09/10/17 09/10/17 10:00 10:15 10:30 Temperature Pulse Rate 99 H 102 H 108 H Pulse Rate [ Anterior Bilateral Throughout] Respiratory 20 20 25 H Rate Respiratory Rate [Anterior Bilateral Throughout] Blood Pressure 100/49 101/47 101/47 O2 Sat by Pulse 100 100 100 Oximetry O2 Sat by Pulse Oximetry [ Anterior Bilateral Throughout] O2 Sat by Pulse Oximetry [ Assessment] 09/10/17 09/10/17 09/10/17 10:45 11:00 11:15 Temperature Pulse Rate 107 H 104 H 103 H Pulse Rate [ Anterior Bilateral Throughout] Respiratory 20 17 17 Rate Respiratory Rate [Anterior Bilateral Throughout] Blood Pressure 101/49 101/44 92/41 O2 Sat by Pulse 100 100 100 Oximetry O2 Sat by Pulse Oximetry [ Anterior Bilateral Throughout] O2 Sat by Pulse Oximetry [ Assessment] 09/10/17 09/10/17 09/10/17 11:30 11:45 12:00 Temperature 98.9 F Pulse Rate 103 H 104 H 103 H Pulse Rate [ Anterior Bilateral Throughout] Respiratory 13 20 13 Rate Respiratory Rate [Anterior Bilateral Throughout] Blood Pressure 93/41 106/49 101/70 O2 Sat by Pulse 100 100 100 Oximetry O2 Sat by Pulse Oximetry [ Anterior Bilateral Throughout] O2 Sat by Pulse Oximetry [ Assessment] 09/10/17 09/10/17 09/10/17 12:15 12:30 12:45 Temperature Pulse Rate 104 H 104 H 100 H Pulse Rate [ Anterior Bilateral Throughout] Respiratory 20 19 20 Rate Respiratory Rate [Anterior Bilateral Throughout] Blood Pressure 101/42 104/63 109/55 O2 Sat by Pulse 100 100 100 Oximetry O2 Sat by Pulse Oximetry [ Anterior Bilateral Throughout] O2 Sat by Pulse Oximetry [ Assessment] 09/10/17 09/10/17 09/10/17 12:58 13:00 13:15 Temperature 98.9 F Pulse Rate 99 H 102 H 96 H Pulse Rate [ Anterior Bilateral Throughout] Respiratory 15 20 Rate Respiratory Rate [Anterior Bilateral Throughout] Blood Pressure 109/55 109/55 124/53 O2 Sat by Pulse 100 100 100 Oximetry O2 Sat by Pulse 100 Oximetry [ Anterior Bilateral Throughout] O2 Sat by Pulse 100 Oximetry [ Assessment] 09/10/17 09/10/17 09/10/17 13:30 13:45 13:46 Temperature Pulse Rate 95 H 93 H 93 H Pulse Rate [ Anterior Bilateral Throughout] Respiratory 20 12 Rate Respiratory Rate [Anterior Bilateral Throughout] Blood Pressure 124/53 82/44 82/44 O2 Sat by Pulse 100 100 Oximetry O2 Sat by Pulse Oximetry [ Anterior Bilateral Throughout] O2 Sat by Pulse Oximetry [ Assessment] 09/10/17 09/10/1717 13:52 14:00 14:05 Temperature Pulse Rate 91 H 94 H 90 Pulse Rate [ Anterior Bilateral Throughout] Respiratory 15 Rate Respiratory Rate [Anterior Bilateral Throughout] Blood Pressure 81/39 94/72 92/45 O2 Sat by Pulse 100 Oximetry O2 Sat by Pulse Oximetry [ Anterior Bilateral Throughout] O2 Sat by Pulse Oximetry [ Assessment] 09/10/17 09/10/17 09/10/17 14:15 14:16 14:30 Temperature Pulse Rate 94 H 89 95 H Pulse Rate [ Anterior Bilateral Throughout] Respiratory 18 19 Rate Respiratory Rate [Anterior Bilateral Throughout] Blood Pressure 124/50 124/50 112/58 O2 Sat by Pulse 100 100 Oximetry O2 Sat by Pulse Oximetry [ Anterior Bilateral Throughout] O2 Sat by Pulse Oximetry [ Assessment] 09/10/17 09/10/17 09/10/17 14:32 14:45 14:46 Temperature Pulse Rate 92 H 97 H 95 H Pulse Rate [ Anterior Bilateral Throughout] Respiratory 22 Rate Respiratory Rate [Anterior Bilateral Throughout] Blood Pressure 112/58 107/56 107/56 O2 Sat by Pulse 100 Oximetry O2 Sat by Pulse Oximetry [ Anterior Bilateral Throughout] O2 Sat by Pulse Oximetry [ Assessment] 09/10/17 09/10/17 09/10/17 15:00 15:01 15:15 Temperature Pulse Rate 94 H 94 H 96 H Pulse Rate [ Anterior Bilateral Throughout] Respiratory 20 15 Rate Respiratory Rate [Anterior Bilateral Throughout] Blood Pressure 107/56 107/50 114/56 O2 Sat by Pulse 100 100 Oximetry O2 Sat by Pulse Oximetry [ Anterior Bilateral Throughout] O2 Sat by Pulse Oximetry [ Assessment] 09/10/17 09/10/17 09/10/17 15:30 15:33 15:46 Temperature Pulse Rate 99 H 95 H 98 H Pulse Rate [ Anterior Bilateral Throughout] Respiratory 15 13 Rate Respiratory Rate [Anterior Bilateral Throughout] Blood Pressure 102/56 102/56 114/56 O2 Sat by Pulse 100 100 Oximetry O2 Sat by Pulse Oximetry [ Anterior Bilateral Throughout] O2 Sat by Pulse Oximetry [ Assessment] 09/10/17 09/10/17 09/10/17 15:49 15:54 16:00 Temperature 98.5 F Pulse Rate 102 H 98 H 101 H Pulse Rate [ Anterior Bilateral Throughout] Respiratory 20 Rate Respiratory Rate [Anterior Bilateral Throughout] Blood Pressure 62/48 110/58 105/52 O2 Sat by Pulse 100 Oximetry O2 Sat by Pulse Oximetry [ Anterior Bilateral Throughout] O2 Sat by Pulse Oximetry [ Assessment] 09/10/17 09/10/17 09/10/17 16:01 16:15 16:16 Temperature Pulse Rate 100 H 104 H 103 H Pulse Rate [ Anterior Bilateral Throughout] Respiratory 20 Rate Respiratory Rate [Anterior Bilateral Throughout] Blood Pressure 105/52 115/89 115/89 O2 Sat by Pulse 100 Oximetry O2 Sat by Pulse Oximetry [ Anterior Bilateral Throughout] O2 Sat by Pulse Oximetry [ Assessment] 09/10/17 09/10/17 09/10/17 16:30 16:36 16:46 Temperature 98.5 F Pulse Rate 104 H 88 97 H Pulse Rate [ Anterior Bilateral Throughout] Respiratory 20 16 15 Rate Respiratory Rate [Anterior Bilateral Throughout] Blood Pressure 115/89 95/40 110/61 O2 Sat by Pulse 100 100 Oximetry O2 Sat by Pulse 100 Oximetry [ Anterior Bilateral Throughout] O2 Sat by Pulse Oximetry [ Assessment] 09/10/17 09/10/17 09/10/17 17:00 17:16 17:30 Temperature Pulse Rate 102 H 99 H 99 H Pulse Rate [ Anterior Bilateral Throughout] Respiratory 20 14 21 Rate Respiratory Rate [Anterior Bilateral Throughout] Blood Pressure 110/61 84/39 84/39 O2 Sat by Pulse 100 100 100 Oximetry O2 Sat by Pulse Oximetry [ Anterior Bilateral Throughout] O2 Sat by Pulse Oximetry [ Assessment] 09/10/17 09/10/17 09/10/17 17:46 18:00 19:45 Temperature Pulse Rate 97 H 93 H 98 H Pulse Rate [ Anterior Bilateral Throughout] Respiratory 20 20 Rate Respiratory Rate [Anterior Bilateral Throughout] Blood Pressure 110/52 110/53 121/59 O2 Sat by Pulse 100 100 100 Oximetry O2 Sat by Pulse Oximetry [ Anterior Bilateral Throughout] O2 Sat by Pulse Oximetry [ Assessment] 09/10/17 09/10/17 19:51 20:00 Temperature 98.8 F Pulse Rate Pulse Rate [ 96 H Anterior Bilateral Throughout] Respiratory Rate Respiratory 20 Rate [Anterior Bilateral Throughout] Blood Pressure O2 Sat by Pulse Oximetry O2 Sat by Pulse Oximetry [ Anterior Bilateral Throughout] O2 Sat by Pulse Oximetry [ Assessment] General appearance: Present: mild distress - EENT Eyes: PERRL, EOM intact ENT: hearing intact, clear oral mucosa Ears: bilateral: normal - Neck Neck: supple, normal ROM - Respiratory Respiratory: bilateral: diminished - Breasts Breasts: deferred - Cardiovascular Rhythm: regular Heart Sounds: Present: S1 & S2. Absent: gallop, rub Extremities: pulses intact, No edema, normal color, Full ROM - Gastrointestinal General gastrointestinal: Present: soft, non-tender, non-distended, normal bowel sounds Rectal Exam: deferred - Genitourinary Female genitourinary: deferred - Integumentary Integumentary: clear, warm, dry - Musculoskeletal Musculoskeletal: 1, strength equal bilaterally - Neurologic Neurologic: moves all extremities - Psychiatric Psychiatric: appropriate mood/affect - Labs CBC & Chem 7: 09/10/17 09:55 09/10/17 07:00 Labs: Abnormal lab results 09/09/17 09/10/17 09/10/17 Range/Units 23:30 05:04 07:00 WBC (4.5-11.0) K/mm3 RBC (3.65-5.03) M/mm3 Hgb (10.1-14.3) gm/dl Hct (30.3-42.9) % RDW (13.2-15.2) % Chloride 97.9 L (98-107) mmol/L BUN 78 H (7-17) mg/dL Creatinine 2.0 H (0.7-1.2) mg/dL Glucose 126 H (65-100) mg/dL POC Glucose 212 H 155 H (70-105) Calcium 8.2 L (8.4-10.2) mg/dL 09/10/17 09/10/17 Range/Units 09:55 12:22 WBC 24.7 H (4.5-11.0) K/mm3 RBC 2.62 L (3.65-5.03) M/mm3 Hgb 7.5 L (10.1-14.3) gm/dl Hct 22.5 L (30.3-42.9) % RDW 20.8 H (13.2-15.2) % Chloride (98-107) mmol/L BUN (7-17) mg/dL Creatinine (0.7-1.2) mg/dL Glucose (65-100) mg/dL POC Glucose 183 H (70-105) Calcium (8.4-10.2) mg/dL
[2017-09-11] MEDS: NOVOLOG SUB-Q SCH ×4 (02:17→19:59)
[2017-09-11] MEDS: DUONEB *Not for PRN Use IH SCH ×4 (02:34→19:48)
[2017-09-11] MEDS: LEVOPHED 8 MG in NACL 0.9% 250ML 242 ML IV SCH ×5 (03:32→21:55)
[2017-09-11 04:23] LABS: Hematocrit 22.2 % (30.3-42.9); Hemoglobin 7.4 gm/dl (10.1-14.3); Mean Corpuscular HGB Conc 33 % (30-34); Mean Corpuscular Hemoglobin 29 pg (28-32); Mean Corpuscular Volume 88 fl (79-97); Platelet Count 168 K/mm3 (140-440); Red Blood Count 2.52 M/mm3 (3.65-5.03)
[2017-09-11 04:24] LABS: Red Cell Distribution Width 21.5 % (13.2-15.2); White Blood Count 21.6 K/mm3 (4.5-11.0)
[2017-09-11 05:12] LABS: Basophils % (Manual) 0 % (0.0-1.8); Blastocytes % (Manual) 0 %; Eosinophils % (Manual) 0 % (0.0-4.3)
[2017-09-11 05:13] LABS: Anisocytosis 1+; Diff Status Complete; Platelet Estimate Consistent w Auto
--- NOTE | 2017-09-11 09:49 | Progress Note ---
Assessment and Plan Assessment: 1) Sepsis with septic shock: worsening on 2 pressors, leukocytosis better today ; new source ? unclear. Repeat CT no abscess no collection. Ivan removed. -CRP= 34 -->30 -->19-->0.1 ->2.8 -procalcitonin=1.3 -->7.6 -->3.9 2) Bowel obstruction / suspect ?gastric perforation ? peritonitis -S/P Exlap, G-tube placement, EGD, abdominal washout and removal of PD -OR findings - bowel obstruction due to entanglement of PD cath, abscess cavity in LUQ and ? suspect perforation of unclear location 3) CA-UTI: chronic ivan exchanged every 4 weeks and ureteral stents in place which are exchanged every 6 months ? urine cultures still pending should r/o MDR bacteria 4) Paraplegia 5) ESRD on PD - no evidence of peritonitis, wbc count 2. 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 6) Recent pancreatitis 7) Penicillin allergy-has taken keflex w/o problems 8) Presumed Surgical wound infection / dehiscence ? 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 11) Sacral stage II 12) Anemia- severe- Hg 6.7 today Plan: -obtain blood cx and CXR -continue dapto IV day 2 -stop fluconazole day 9 -start micafungin day 1 -continue meropenem 4 -monitor leukocytosis which is better -wound care poor prognosis discussed with family previously Thank you Dr De Leon for your consultation, will follow up with you. Ramya Lang MD Infectious Diseases Specialist [facility] ([facility] M [phone] O [phone] Subjective Date of service: 09/11/17 Principal diagnosis: rectal bleeding Interval history: Pt remains intubated on the vent now on levophed at 22 mcg and vasopressin, on TPN, fentanyl, no fever. Microbiology: Blood cultures: 08/08 neg 08/12 neg 08/16 neg 08/20 neg / neg 09/06 neg Urine cultures: 08/08 10-100K skin grace Respiratory cultures: 08/30 tracheal asp MRSA Wound cultures: 08/26 Staph aureus and Kristine 08/28 MRSA, E faecalis, Kristine albicans Stool cultures: Other: 08/08 peritoneal fluid + EVAPORATOR OPERATOR MOLASSES/Diphteroids Current Antimicrobials: dapto 09/10 fluconazole 09/03 meropenem 09/09 Previous Antimicrobials: 08/10 levaquin 08/16 vancomycin 08/13 meropenem 08/16 fluconazole Micafungin 08/29 meropenem 08/29 zyvox 09/03 Objective - Exam Narrative Exam: General appearance: sedated on vent via trach Eyes: anicteric sclerae, moist conjunctivae; no lid-lag; PERRLA HENT: Atraumatic; NGT Neck: Trach in place Lungs: coarse BS moreno CV: RRR, no murmurs Abdomen: soft, midline surgical wound with sutures +serosnaguinous bleeding. Gtube. drain Extremities: + peripheral edema + leg ulcer no drainage Skin: right groin old fem line wound no erythema, no drainage Psych: sedated. Neuro: sedated Lines: right IJ vas cath / Right IJ Nair 08/16 - Constitutional Vitals: Vital Signs Temp Pulse Resp BP Pulse Ox 98.6 F 98 H 20 117/53 100 09/11/17 08:00 09/11/17 08:00 09/11/17 08:00 09/11/17 06:15 09/11/17 08:00 Temperature -Last 24 Hours Temperature 98.6 F Temperature 99.5 F Temperature 99.1 F Temperature 98.8 F Temperature 98.5 F Temperature 98.5 F Temperature 98.9 F Temperature 98.9 F - Labs CBC & Chem 7: 09/11/17 03:50 09/10/17 07:00 Labs: Abnormal lab results 08/31/17 09/10/17 09/10/17 Range/Units 18:22 09:55 12:22 WBC 24.7 H (4.5-11.0) K/mm3 RBC 2.62 L (3.65-5.03) M/mm3 Hgb 7.5 L (10.1-14.3) gm/dl Hct 22.5 L (30.3-42.9) % RDW 20.8 H (13.2-15.2) % Seg Neuts % (Manual) (40.0-70.0) % Lymphocytes % (Manual) (13.4-35.0) % Seg Neutrophils # Man (1.8-7.7) K/mm3 Lymphocytes # (Manual) (1.2-5.4) K/mm3 POC Glucose 240 H 183 H (70-105) 09/11/17 09/11/17 09/11/17 Range/Units 00:08 03:50 05:28 WBC 21.6 H (4.5-11.0) K/mm3 RBC 2.52 L (3.65-5.03) M/mm3 Hgb 7.4 L (10.1-14.3) gm/dl Hct 22.2 L (30.3-42.9) % RDW 21.5 H (13.2-15.2) % Seg Neuts % (Manual) 92.0 H (40.0-70.0) % Lymphocytes % (Manual) 3.0 L (13.4-35.0) % Seg Neutrophils # Man 19.9 H (1.8-7.7) K/mm3 Lymphocytes # (Manual) 0.6 L (1.2-5.4) K/mm3 POC Glucose 213 H 181 H (70-105)
[2017-09-11] MEDS ORDERED: NACL 0.9% 100 ML IV PRN ×2 (10:04→12:30)
--- NOTE | 2017-09-11 10:04 | Progress Note ---
Assessment and Plan Assessment and plan: Acute hypoxic respiratory failure on Mechanical ventilation > 96 hours continue ventilator support s/p tracheostomy on 09/09/17, had failed extubation multiple times Sepsis secondary to peritonitis, Intra abdominal abscess and Bowel obstruction Patient had completed 14 days of meropenem and diflucan, was restarted again due to fever/septic shock continue abx per ID recommendation she has had the following procedures 08/31: Ex lap with abdominal wash out and closure 08/17: Ex lap with G tube placement, EGD, abdominal wash out and removal of PD Cath -taper steroids Acute GI bleeding with severe acute blood loss anemia EGD showed small gastric ulcer s/p multiple transfusions GI Physician following Patient had CTA of abdomen and pelvis no active bleeding, CT Abdomen repeated , no acute findings transfuse to keep Hg above 8 given septic shock continue PPI drip, too unstable for C scope at this time wean steroids Ulcerative esophagitis/small gastric ulcer on EGD Continue iv Protonix ESRD continue HD per renal per femoral HD cath needs perm cath when improved Septic shock. continue IV pressors,Vasopressin and Levophed. wean off as needed continue abx, ID input appreciated Discussed case with ID Physician. Severe Protein calorie malnutrition Continue with TPN Sacral and lower extremity wound, POA continue wound care NSVT likely due to levophed, wean as tolerated cardiology input appreciated DVT prophylaxis; SCDs Not on anticoagualation because of GI bleed Disposition: continue ICU care Prognosis: guarded I discussed with family at bedside: Daughter and Sister. I also discussed case with ID Physician and Environmental Field Professional. History Interval history: Patient with severe sepsis,septic shock Hospitalist Physical - Physical exam Narrative exam: Gen Appearance: Not in acute distress,morbidly obese HEENT: normocephalic, atraumatic Neck: supple, no JVD, Tracheostomy Lungs: Clear to auscultation, no rales, no wheezing, Heart: S1 and S2 regular, no murmurs,no rubs or gallop, Abdomen: Soft , non tender, non distended, Dressing over abdomen, G tube, bowel sounds present Extremity:Bilateral edema, no clubbing or cyanosis, Neuro : Sedated with Fentanyl - Constitutional Vitals: Temp Pulse Resp BP Pulse Ox 98.6 F 98 H 20 117/53 100 09/11/17 08:00 09/11/17 08:00 09/11/17 08:00 09/11/17 06:15 09/11/17 08:00 General appearance: Present: mild distress Results - Labs CBC & Chem 7: 09/11/17 03:50 09/11/17 23:12 Labs: Laboratory Last Values WBC 21.6 K/mm3 (4.5-11.0) H 09/11/17 03:50 RBC 2.52 M/mm3 (3.65-5.03) L 09/11/17 03:50 Hgb 7.4 gm/dl (10.1-14.3) L 09/11/17 03:50 Hct 22.2 % (30.3-42.9) L 09/11/17 03:50 MCV 88 fl (79-97) 09/11/17 03:50 MCH 29 pg (28-32) 09/11/17 03:50 MCHC 33 % (30-34) 09/11/17 03:50 RDW 21.5 % (13.2-15.2) H 09/11/17 03:50 Plt Count 168 K/mm3 (140-440) 09/11/17 03:50 Lymph % (Auto) Pattern Vault Clerk 08/19/17 07:37 Park % (Auto) Pattern [employer]ault Clerk 08/19/17 07:37 Eos % (Auto) [employer] Clerk 08/19/17 07:37 Baso % (Auto) [employer] Clerk 08/19/17 07:37 Lymph # [employer] Clerk 08/19/17 07:37 Park # [employer]ault Clerk 08/19/17 07:37 Eos # [employer]ault Clerk 08/19/17 07:37 Baso # [employer] Clerk 08/19/17 07:37 Add Manual Diff Complete 09/11/17 03:50 Total Counted 100 09/11/17 03:50 Seg Neutrophils % [employer] Clerk 09/08/17 04:05 Seg Neuts % (Manual) 92.0 % (40.0-70.0) H 09/11/17 03:50 Band Neutrophils % 2.0 % 09/11/17 03:50 Lymphocytes % (Manual) 3.0 % (13.4-35.0) L 09/11/17 03:50 Reactive Lymphs % (Man) 0 % 09/11/17 03:50 Monocytes % (Manual) 2.0 % (0.0-7.3) 09/11/17 03:50 Eosinophils % (Manual) 0 % (0.0-4.3) 09/11/17 03:50 Basophils % (Manual) 0 % (0.0-1.8) 09/11/17 03:50 Metamyelocytes % 0 % 09/11/17 03:50 Myelocytes % 1.0 % 09/11/17 03:50 Promyelocytes % 0 % 09/11/17 03:50 Blast Cells % 0 % 09/11/17 03:50 Nucleated RBC % Not Reportable 09/11/17 03:50 Seg Neutrophils # [employer]ault Clerk 08/19/17 07:37 Seg Neutrophils # Man 19.9 K/mm3 (1.8-7.7) H 09/11/17 03:50 Band Neutrophils # 0.4 K/mm3 09/11/17 03:50 Lymphocytes # (Manual) 0.6 K/mm3 (1.2-5.4) L 09/11/17 03:50 Abs React Lymphs (Man) 0.0 K/mm3 09/11/17 03:50 Monocytes # (Manual) 0.4 K/mm3 (0.0-0.8) 09/11/17 03:50 Eosinophils # (Manual) 0.0 K/mm3 (0.0-0.4) 09/11/17 03:50 Basophils # (Manual) 0.0 K/mm3 (0.0-0.1) 09/11/17 03:50 Metamyelocytes # 0.0 K/mm3 09/11/17 03:50 Myelocytes # 0.2 K/mm3 09/11/17 03:50 Promyelocytes # 0.0 K/mm3 09/11/17 03:50 Blast Cells # 0.0 K/mm3 09/11/17 03:50 Pathologist Review Not Reportable 08/30/17 05:20 WBC Morphology Not Reportable 09/11/17 03:50 Hypersegmented Neuts Not Reportable 09/11/17 03:50 Hyposegmented Neuts Not Reportable 09/11/17 03:50 Hypogranular Neuts Not Reportable 09/11/17 03:50 Smudge Cells Not Reportable 09/11/17 03:50 Toxic Granulation Not Reportable 09/11/17 03:50 Toxic Vacuolation Not Reportable 09/11/17 03:50 Dohle Bodies Not Reportable 09/11/17 03:50 Pelger-Huet Anomaly Not Reportable 09/11/17 03:50 Ariel Rods Not Reportable 09/11/17 03:50 Platelet Estimate Consistent w auto 09/11/17 03:50 Clumped Platelets Not Reportable 09/11/17 03:50 Plt Clumps, EDTA Not Reportable 09/11/17 03:50 Large Platelets Not Reportable 09/11/17 03:50 Giant Platelets Not Reportable 09/11/17 03:50 Platelet Satelliting Not Reportable 09/11/17 03:50 Plt Morphology Comment Not Reportable 09/11/17 03:50 RBC Morphology Not Reportable 09/11/17 03:50 Dimorphic RBCs Not Reportable 09/11/17 03:50 Polychromasia Not Reportable 09/11/17 03:50 Hypochromasia Not Reportable 09/11/17 03:50 Poikilocytosis Not Reportable 09/11/17 03:50 Anisocytosis 1+ 09/11/17 03:50 Microcytosis Not Reportable 09/11/17 03:50 Macrocytosis Not Reportable 09/11/17 03:50 Spherocytes Not Reportable 09/11/17 03:50 Pappenheimer Bodies Not Reportable 09/11/17 03:50 Sickle Cells Not Reportable 09/11/17 03:50 Target Cells Not Reportable 09/11/17 03:50 Tear Drop Cells Not Reportable 09/11/17 03:50 Ovalocytes Not Reportable 09/11/17 03:50 Stomatocytes Rare 09/01/17 05:00 Helmet Cells Not Reportable 09/11/17 03:50 [place] Bodies Not Reportable 09/11/17 03:50 [place] Rings Not Reportable 09/11/17 03:50 [place] Cells Not Reportable 09/11/17 03:50 Bite Cells Not Reportable 09/11/17 03:50 Crenated Cell Not Reportable 09/11/17 03:50 Elliptocytes Not Reportable 09/11/17 03:50 Acanthocytes (Spur) Not Reportable 09/11/17 03:50 Rouleaux Not Reportable 09/11/17 03:50 Hemoglobin C Crystals Not Reportable 09/11/17 03:50 Schistocytes Not Reportable 09/11/17 03:50 Malaria parasites Not Reportable 09/11/17 03:50 Jovanni Bodies Not Reportable 09/11/17 03:50 Hem Pathologist Commnt No 09/11/17 03:50 PT 15.1 Sec. (12.2-14.9) H 08/31/17 18:15 INR 1.13 (0.87-1.13) 08/31/17 18:15 APTT 28.7 Sec. (24.2-36.6) 08/31/17 18:15 POC ABG pH 7.335 (7.35-7.45) L 08/30/17 03:31 ABG pH 7.323 pH Units (7.350-7.450) L 09/09/17 Unknown POC ABG pCO2 44.1 (35-45) 08/30/17 03:31 ABG pCO2 41.1 mm Hg 09/09/17 Unknown POC ABG pO2 117 (80-105) H 08/30/17 03:31 ABG pO2 94.1 mm Hg (80.0-90.0) H 09/09/17 Unknown POC ABG HCO3 23.5 08/30/17 03:31 ABG HCO3 20.9 mmol/L (20.0-26.0) 09/09/17 Unknown POC ABG Total CO2 25 08/30/17 03:31 POC ABG O2 Sat 98 08/30/17 03:31 ABG O2 Saturation 97.2 % (95.0-99.0) 09/09/17 Unknown ABG O2 Content 10.9 (0.0-44) 09/09/17 Unknown POC ABG Base Excess -2 08/30/17 03:31 ABG Base Excess -4.8 mmol/L (-2.0-3.0) L 09/09/17 Unknown ABG Hemoglobin 8.0 gm/dl (12.0-16.0) L 09/09/17 Unknown ABG Carboxyhemoglobin 2.0 % (0.0-5.0) 09/09/17 Unknown ABG Methemoglobin 0.3 % (0.0-1.5) 09/09/17 Unknown VBG pH 7.462 (7.320-7.420) H 08/08/17 14:52 Oxyhemoglobin 94.9 % (95.0-99.0) L 09/09/17 Unknown FiO2 30 % 09/09/17 Unknown Sodium 138 mmol/L (137-145) 09/10/17 07:00 Potassium 3.7 mmol/L (3.6-5.0) 09/10/17 07:00 Chloride 97.9 mmol/L (98-107) L 09/10/17 07:00 Carbon Dioxide 24 mmol/L (22-30) 09/10/17 07:00 Anion Gap 20 mmol/L 09/10/17 07:00 BUN 78 mg/dL (7-17) H 09/10/17 07:00 Creatinine 2.0 mg/dL (0.7-1.2) H 09/10/17 07:00 Estimated GFR 31 ml/min 09/10/17 07:00 BUN/Creatinine Ratio 39 % 09/10/17 07:00 Glucose 126 mg/dL (65-100) H 09/10/17 07:00 POC Glucose 181 (70-105) H 09/11/17 05:28 Lactic Acid 1.60 mmol/L (0.7-2.0) 08/17/17 11:20 Calcium 8.2 mg/dL (8.4-10.2) L 09/10/17 07:00 Phosphorus 4.00 mg/dL (2.5-4.5) D 09/10/17 07:00 Magnesium 2.30 mg/dL (1.7-2.3) 09/10/17 07:00 Total Bilirubin 1.00 mg/dL (0.1-1.2) 09/08/17 04:05 Direct Bilirubin 0.2 mg/dL (0-0.2) 08/08/17 14:11 Indirect Bilirubin 0.3 mg/dL 08/08/17 14:11 AST 14 units/L (5-40) 09/08/17 04:05 ALT 16 units/L (7-56) 09/08/17 04:05 Alkaline Phosphatase 199 units/L (35-129) H 09/08/17 04:05 Ammonia 25.0 umol/L (25-60) 08/08/17 14:52 Troponin T 0.132 ng/mL (0.00-0.029) H* 08/09/17 13:25 C-Reactive Protein 2.80 mg/dL (0.00-1.30) H 09/06/17 05:30 NT-Pro-B Natriuret Pep 6156 pg/mL (0-900) H 08/08/17 14:11 Total Protein 4.5 g/dL (6.3-8.2) L 09/08/17 04:05 Albumin 1.7 g/dL (3.9-5) L 09/08/17 04:05 Albumin/Globulin Ratio 0.6 % 09/08/17 04:05 Triglycerides 180 mg/dL (2-149) H 09/03/17 04:00 Cholesterol 91 mg/dL (50-199) 08/08/17 21:23 LDL Cholesterol Direct 53 mg/dL (50-130) 08/08/17 21:23 HDL Cholesterol 26 mg/dL (40-59) L 08/08/17 21:23 Cholesterol/HDL Ratio 3.50 % 08/08/17 21:23 Amylase 45 units/L (27-131) 08/16/17 09:50 Lipase 34 units/L (13-60) 08/16/17 09:50 TSH 6.580 mlU/mL (0.270-4.200) H 08/08/17 14:22 Free T4 1.46 ng/dL (0.76-1.46) 08/08/17 14:22 Total Cortisol 30.1 mcg/dL () 08/13/17 06:14 Urine Color Yellow (Yellow) 08/08/17 20:15 Urine Turbidity Turbid (Clear) 08/08/17 20:15 Urine pH 8.0 (5.0-7.0) H 08/08/17 20:15 Ur Specific Powers 1.015 (1.003-1.030) 08/08/17 20:15 Urine Protein 100 mg/dl mg/dL (Negative) 08/08/17 20:15 Urine Glucose (UA) Neg mg/dL (Negative) 08/08/17 20:15 Urine Ketones Neg mg/dL (Negative) 08/08/17 20:15 Urine Blood Mod (Negative) 08/08/17 20:15 Urine Nitrite Neg (Negative) 08/08/17 20:15 Urine Bilirubin Neg (Negative) 08/08/17 20:15 Urine Urobilinogen < 2.0 mg/dL (<2.0) 08/08/17 20:15 Ur Leukocyte Esterase Lg (Negative) 08/08/17 20:15 Urine WBC (Auto) 24.0 /HPF (0.0-6.0) H 08/08/17 20:15 Urine RBC (Auto) 3.0 /HPF (0.0-6.0) 08/08/17 20:15 U Epithel Cells (Auto) 3.0 /HPF (0-13.0) 08/08/17 20:15 Urine Bacteria (Auto) 4+ /HPF (Negative) 08/08/17 20:15 Urine Mucus 3+ /HPF 08/08/17 20:15 Fluid Type Peritoneal 08/08/17 18:18 Fluid Color Straw 08/08/17 18:18 Fluid Appearance Clear 08/08/17 18:18 Fluid pH 7.74 08/08/17 18:18 Fluid WBC 4 /mm3 08/08/17 18:18 Fluid RBC 1 /mm3 08/08/17 18:18 Fluid Seg Neutrophils 12 % 08/08/17 18:18 Fluid Lymphocytes 0 % 08/08/17 18:18 Fluid Reactive Lymphs 0 % 08/08/17 18:18 Fluid Monocytes 1 % 08/08/17 18:18 Fluid Eosinophils 0 % 08/08/17 18:18 Fluid Basophils 0 % 08/08/17 18:18 Fluid Glucose 315 mg/dL (40-70) H 08/08/17 18:18 Random Vancomycin 19.5 ug/mL (0-40.0) 08/22/17 03:40 Hep Bs Antigen Non-reactive (Negative) 08/22/17 03:40 Hepatitis C Antibody Non-reactive (NonReactive) 08/22/17 03:40 Miscellaneous Test Flexitest 1 H 09/06/17 09:57 Blood Type O POSITIVE 09/07/17 17:07 Antibody Screen TNR 09/07/17 17:07 VAN Antibody Screen Negative 09/07/17 17:07 Crossmatch See Detail 09/07/17 17:07
[2017-09-11] MEDS: fentaNYL DRIP Premix 2,000 MCG/100 ML BAG IV SCH ×2 (10:36→21:08)
[2017-09-11] MEDS: LEVEMIR SUB-Q SCH (10:37)
[2017-09-11] MEDS: MERREM 1,000 MG in NACL 0.9% 100 ML IV SCH (10:38)
[2017-09-11] MEDS: PROTONIX IV SCH (10:39)
--- NOTE | 2017-09-11 10:57 | XRay Report ---
AP CHEST: HISTORY: Worsening sepsis Compared to 09/04/17. The endotracheal tube has been replaced with a tracheostomy. Right venous catheters are unchanged. A nasogastric tube has been inserted. Mild cardiomegaly is stable. Mild improvement in central pulmonary venous congestion is demonstrated. Left perihilar opacity has resolved since the previous exam which may have represented an infiltrate. The lungs are generally clear on today's exam. No pleural effusion or pneumothorax. IMPRESSION: Mild cardiomegaly. Lungs clear.
--- NOTE | 2017-09-11 10:57 | Progress Note ---
Assessment and Plan Acute bacterial peritonitis/abscess s/p exlap. Still septic Shock. Possibly combination of sepsis, fluid shift after hemodialysis? SBO w wound dehiscence Acute respiratory failure, hypoxia.On Vent support.ABG adequate Strength patient Morbid obesity, ESRD Sepsis, on antibiotics. ID following LGIB status post acute blood loss anemia Rec: Continue ABX Wean pressors as tolerated.keep MAP > 65 if possible Previously on steroids now discontinued. Additional benefit unclear. Methylene blue testing for surgery Echocardiogram for evaluation of left ventricular function, in the context of shock, sepsis and ongoing fluid shift Prognosis is guarded . No family available. critical care time was 40 minutes of [id number] evaluation and coordination of care Subjective Date of service: 09/18/17 Principal diagnosis: respiratory failure, sepsis, shock rectal bleeding Interval history: Arousable, on ventilator support support Objective Vital Signs - 12hr 09/10/17 09/10/17 09/10/17 23:00 23:15 23:30 Temperature Pulse Rate 102 H 104 H 105 H Pulse Rate [ Anterior Bilateral Throughout] Respiratory 20 20 21 Rate Respiratory Rate [Anterior Bilateral Throughout] Blood Pressure 126/54 125/57 122/55 O2 Sat by Pulse 100 100 100 Oximetry O2 Sat by Pulse Oximetry [ Assessment] 09/10/17 09/10/17 09/10/17 23:45 23:47 23:50 Temperature Pulse Rate 105 H 106 H Pulse Rate [ Anterior Bilateral Throughout] Respiratory 19 Rate Respiratory Rate [Anterior Bilateral Throughout] Blood Pressure 129/53 129/53 O2 Sat by Pulse 100 100 Oximetry O2 Sat by Pulse 100 Oximetry [ Assessment] 09/11/17 09/11/17 09/11/17 00:00 00:15 00:30 Temperature 99.1 F Pulse Rate 105 H 107 H 105 H Pulse Rate [ Anterior Bilateral Throughout] Respiratory 20 21 21 Rate Respiratory Rate [Anterior Bilateral Throughout] Blood Pressure 120/52 120/52 128/54 O2 Sat by Pulse 100 100 100 Oximetry O2 Sat by Pulse Oximetry [ Assessment] 09/11/17 09/11/17 09/11/17 00:45 01:00 01:15 Temperature Pulse Rate 104 H 108 H 103 H Pulse Rate [ Anterior Bilateral Throughout] Respiratory 20 19 22 Rate Respiratory Rate [Anterior Bilateral Throughout] Blood Pressure 118/52 105/45 122/53 O2 Sat by Pulse 100 100 100 Oximetry O2 Sat by Pulse Oximetry [ Assessment] 09/11/17 09/11/17 09/11/17 01:30 01:45 02:00 Temperature Pulse Rate 104 H 105 H 105 H Pulse Rate [ Anterior Bilateral Throughout] Respiratory 20 21 20 Rate Respiratory Rate [Anterior Bilateral Throughout] Blood Pressure 115/52 116/51 123/55 O2 Sat by Pulse 100 100 100 Oximetry O2 Sat by Pulse Oximetry [ Assessment] 09/11/17 09/11/17 09/11/17 02:16 02:30 02:34 Temperature Pulse Rate 106 H 107 H Pulse Rate [ 108 H Anterior Bilateral Throughout] Respiratory 16 20 Rate Respiratory 22 Rate [Anterior Bilateral Throughout] Blood Pressure 129/51 108/60 O2 Sat by Pulse 100 100 Oximetry O2 Sat by Pulse Oximetry [ Assessment] 09/11/17 09/11/17 09/11/17 02:46 02:49 03:00 Temperature Pulse Rate 106 H 109 H Pulse Rate [ 11 L Anterior Bilateral Throughout] Respiratory 20 18 Rate Respiratory 22 Rate [Anterior Bilateral Throughout] Blood Pressure 84/59 84/59 O2 Sat by Pulse 100 100 Oximetry O2 Sat by Pulse Oximetry [ Assessment] 09/11/17 09/11/17 09/11/17 03:15 03:30 03:45 Temperature Pulse Rate 101 H 103 H 104 H Pulse Rate [ Anterior Bilateral Throughout] Respiratory 20 19 21 Rate Respiratory Rate [Anterior Bilateral Throughout] Blood Pressure 112/50 112/50 104/49 O2 Sat by Pulse 100 100 100 Oximetry O2 Sat by Pulse Oximetry [ Assessment] 09/11/17 09/11/17 09/11/17 03:52 04:00 04:15 Temperature 99.5 F Pulse Rate 102 H 102 H Pulse Rate [ Anterior Bilateral Throughout] Respiratory 20 21 Rate Respiratory Rate [Anterior Bilateral Throughout] Blood Pressure 113/51 111/47 O2 Sat by Pulse 100 100 Oximetry O2 Sat by Pulse Oximetry [ Assessment] 09/11/17 09/11/17 09/11/17 04:30 04:46 05:00 Temperature Pulse Rate 103 H 105 H 102 H Pulse Rate [ Anterior Bilateral Throughout] Respiratory 20 21 20 Rate Respiratory Rate [Anterior Bilateral Throughout] Blood Pressure 109/48 62/35 85/33 O2 Sat by Pulse 100 100 100 Oximetry O2 Sat by Pulse Oximetry [ Assessment] 09/11/17 09/11/17 09/11/17 05:15 05:30 05:46 Temperature Pulse Rate 102 H 101 H 103 H Pulse Rate [ Anterior Bilateral Throughout] Respiratory 20 10 L 14 Rate Respiratory Rate [Anterior Bilateral Throughout] Blood Pressure 112/54 116/57 85/33 O2 Sat by Pulse 100 100 100 Oximetry O2 Sat by Pulse Oximetry [ Assessment] 09/11/17 09/11/17 09/11/17 06:00 06:15 07:44 Temperature Pulse Rate 99 H 102 H Pulse Rate [ 99 H Anterior Bilateral Throughout] Respiratory 20 17 Rate Respiratory 20 Rate [Anterior Bilateral Throughout] Blood Pressure 124/54 117/53 O2 Sat by Pulse 100 100 Oximetry O2 Sat by Pulse Oximetry [ Assessment] 09/11/17 08:00 Temperature 98.6 F Pulse Rate Pulse Rate [ 98 H Anterior Bilateral Throughout] Respiratory Rate Respiratory 20 Rate [Anterior Bilateral Throughout] Blood Pressure O2 Sat by Pulse Oximetry O2 Sat by Pulse 100 Oximetry [ Assessment] Constitutional: no acute distress, other (critically ill on vent, obese) Eyes: non-icteric ENT: oropharynx moist, other (NGT) Neck: supple, no lymphadenopathy, no JVD (large neck), other (trach in position , no bleeding) Effort: mildly labored Ascultation: Bilateral: clear ( ), diminished breath sounds (Limited expansion) Cardiovascular: regular rate and rhythm Gastrointestinal: absent bowel sounds, non-tender, other (abdominal incision with new dressing noted, obese. Drain in place no bleeding) Integumentary: normal Extremities: no cyanosis, pink and warm, edema (3+ bilateral LE edema) Neurologic: non-focal exam, pupils equal and round, other (RA SS -1) CBC and BMP: 09/16/17 05:30 09/16/17 05:30 ABG, PT/INR, D-dimer: ABG POC ABG pH 7.335 (7.35-7.45) L 08/30/17 03:31 ABG pH 7.323 pH Units (7.350-7.450) L 09/09/17 Unknown POC ABG pCO2 44.1 (35-45) 08/30/17 03:31 ABG pCO2 41.1 mm Hg 09/09/17 Unknown POC ABG pO2 117 (80-105) H 08/30/17 03:31 ABG pO2 94.1 mm Hg (80.0-90.0) H 09/09/17 Unknown POC ABG HCO3 23.5 08/30/17 03:31 POC ABG Total CO2 25 08/30/17 03:31 POC ABG O2 Sat 98 08/30/17 03:31 ABG O2 Saturation 97.2 % (95.0-99.0) 09/09/17 Unknown PT/INR, D-dimer PT 15.1 Sec. (12.2-14.9) H 08/31/17 18:15 INR 1.13 (0.87-1.13) 08/31/17 18:15 Abnormal lab findings: Abnormal Labs 08/08/17 08/08/17 08/09/17 21:23 21:31 11:19 WBC 15.7 H RBC 2.93 L Hgb 8.7 L Hct 26.8 L MCV MCH RDW 19.2 H Plt Count Lymph % (Auto) [place] % (Auto) [place] # Seg Neutrophils % Seg Neuts % (Manual) Lymphocytes % (Manual) Monocytes % (Manual) Nucleated RBC % Seg Neutrophils # Seg Neutrophils # Man Lymphocytes # (Manual) Monocytes # (Manual) Eosinophils # (Manual) Basophils # (Manual) PT INR POC ABG pH 7.490 H ABG pH POC ABG pCO2 POC ABG pO2 122 H ABG pO2 ABG O2 Saturation ABG Base Excess ABG Hemoglobin Oxyhemoglobin Sodium Potassium Chloride Carbon Dioxide BUN Creatinine Glucose POC Glucose Calcium Phosphorus Magnesium AST ALT Alkaline Phosphatase Troponin T 0.133 H* C-Reactive Protein Total Protein Albumin Triglycerides HDL Cholesterol 26 L Miscellaneous Test Crossmatch 08/09/17 08/10/17 08/10/17 13:25 04:45 04:45 WBC 15.5 H RBC 2.97 L Hgb 8.9 L Hct 27.0 L MCV MCH RDW 19.2 H Plt Count Lymph % (Auto) [place] % (Auto) [place] # Seg Neutrophils % Seg Neuts % (Manual) 73.0 H Lymphocytes % (Manual) 7.0 L Monocytes % (Manual) 14.0 H Nucleated RBC % Seg Neutrophils # Seg Neutrophils # Man 11.3 H Lymphocytes # (Manual) 1.1 L Monocytes # (Manual) 2.2 H Eosinophils # (Manual) Basophils # (Manual) 0.2 H PT INR POC ABG pH ABG pH POC ABG pCO2 POC ABG pO2 ABG pO2 ABG O2 Saturation ABG Base Excess ABG Hemoglobin Oxyhemoglobin Sodium Potassium 3.3 L Chloride 97.3 L Carbon Dioxide 21 L BUN 23 H Creatinine 6.5 H Glucose POC Glucose Calcium 7.3 L Phosphorus Magnesium AST ALT Alkaline Phosphatase 138 H Troponin T 0.132 H* C-Reactive Protein Total Protein 4.8 L Albumin 1.4 L Triglycerides HDL Cholesterol Miscellaneous Test Crossmatch 08/11/17 08/11/17 08/12/17 04:00 04:00 05:50 WBC 19.3 H RBC 3.10 L Hgb 9.5 L Hct 28.2 L MCV MCH RDW 19.2 H Plt Count 463 H Lymph % (Auto) 7.5 L [place] % (Auto) 14.6 H [place] # 2.8 H Seg Neutrophils % 77.0 H Seg Neuts % (Manual) Lymphocytes % (Manual) Monocytes % (Manual) Nucleated RBC % Seg Neutrophils # 14.8 H Seg Neutrophils # Man Lymphocytes # (Manual) Monocytes # (Manual) Eosinophils # (Manual) Basophils # (Manual) PT INR POC ABG pH ABG pH POC ABG pCO2 POC ABG pO2 ABG pO2 ABG O2 Saturation ABG Base Excess ABG Hemoglobin Oxyhemoglobin Sodium 136 L 136 L Potassium 3.3 L Chloride 96.3 L 96.6 L Carbon Dioxide BUN 26 H 26 H Creatinine 6.4 H 6.2 H Glucose 135 H 133 H POC Glucose Calcium 8.2 L Phosphorus Magnesium 1.30 L AST ALT Alkaline Phosphatase 139 H Troponin T C-Reactive Protein Total Protein 5.5 L Albumin 1.7 L Triglycerides HDL Cholesterol Miscellaneous Test Crossmatch 08/12/17 08/12/17 08/12/17 05:50 05:50 05:50 WBC 20.1 H RBC 3.06 L Hgb 9.3 L Hct 27.9 L MCV MCH RDW 18.4 H Plt Count 471 H Lymph % (Auto) [place] % (Auto) [place] # Seg Neutrophils % Seg Neuts % (Manual) 85.0 H Lymphocytes % (Manual) 8.0 L Monocytes % (Manual) Nucleated RBC % Seg Neutrophils # Seg Neutrophils # Man 17.1 H Lymphocytes # (Manual) Monocytes # (Manual) 1.0 H Eosinophils # (Manual) Basophils # (Manual) PT 15.2 H INR 1.14 H POC ABG pH ABG pH POC ABG pCO2 POC ABG pO2 ABG pO2 ABG O2 Saturation ABG Base Excess ABG Hemoglobin Oxyhemoglobin Sodium Potassium Chloride Carbon Dioxide BUN Creatinine Glucose POC Glucose Calcium Phosphorus Magnesium AST ALT Alkaline Phosphatase Troponin T C-Reactive Protein 28.90 H Total Protein Albumin Triglycerides HDL Cholesterol Miscellaneous Test Crossmatch 08/12/17 08/13/17 08/13/17 16:23 06:14 06:14 WBC 21.8 H RBC 3.11 L Hgb 9.4 L Hct 28.2 L MCV MCH RDW 18.2 H Plt Count 492 H Lymph % (Auto) [place] % (Auto) [place] # Seg Neutrophils % Seg Neuts % (Manual) 73.0 H Lymphocytes % (Manual) 2.0 L Monocytes % (Manual) 15 H Nucleated RBC % Seg Neutrophils # Seg Neutrophils # Man 15.9 H Lymphocytes # (Manual) 0.4 L Monocytes # (Manual) 2.4 H Eosinophils # (Manual) Basophils # (Manual) PT INR POC ABG pH ABG pH POC ABG pCO2 POC ABG pO2 ABG pO2 ABG O2 Saturation ABG Base Excess ABG Hemoglobin Oxyhemoglobin Sodium Potassium Chloride 96.2 L Carbon Dioxide BUN 28 H Creatinine 5.6 H Glucose 114 H POC Glucose Calcium Phosphorus Magnesium AST ALT Alkaline Phosphatase Troponin T C-Reactive Protein 26.10 H Total Protein Albumin Triglycerides HDL Cholesterol Miscellaneous Test Crossmatch 08/13/17 08/14/17 08/14/17 16:39 04:00 04:00 WBC 22.1 H RBC 3.25 L Hgb 9.9 L Hct 29.5 L MCV MCH RDW 17.9 H Plt Count 525 H Lymph % (Auto) [place] % (Auto) [place] # Seg Neutrophils % Seg Neuts % (Manual) 74.0 H Lymphocytes % (Manual) 8.0 L Monocytes % (Manual) 12.0 H Nucleated RBC % Seg Neutrophils # Seg Neutrophils # Man 16.4 H Lymphocytes # (Manual) Monocytes # (Manual) 2.7 H Eosinophils # (Manual) Basophils # (Manual) PT INR POC ABG pH ABG pH POC ABG pCO2 POC ABG pO2 ABG pO2 ABG O2 Saturation ABG Base Excess ABG Hemoglobin Oxyhemoglobin Sodium 134 L Potassium 3.3 L Chloride 93.3 L Carbon Dioxide BUN 27 H Creatinine 6.0 H Glucose 152 H POC Glucose 151 H Calcium Phosphorus Magnesium AST ALT Alkaline Phosphatase Troponin T C-Reactive Protein Total Protein Albumin Triglycerides HDL Cholesterol Miscellaneous Test Crossmatch 08/15/17 08/16/17 08/16/17 09:10 09:50 09:50 WBC 31.1 H RBC 3.21 L Hgb 9.6 L Hct 29.3 L MCV MCH RDW 18.1 H Plt Count 642 H Lymph % (Auto) [place] % (Auto) [place] # Seg Neutrophils % Seg Neuts % (Manual) 74.0 H Lymphocytes % (Manual) 4.0 L Monocytes % (Manual) 9.0 H Nucleated RBC % Seg Neutrophils # Seg Neutrophils # Man 23.0 H Lymphocytes # (Manual) Monocytes # (Manual) 2.8 H Eosinophils # (Manual) Basophils # (Manual) PT INR POC ABG pH ABG pH POC ABG pCO2 POC ABG pO2 ABG pO2 ABG O2 Saturation ABG Base Excess ABG Hemoglobin Oxyhemoglobin Sodium 136 L 136 L Potassium 3.5 L Chloride 97.6 L 94.9 L Carbon Dioxide BUN 27 H 28 H Creatinine 5.6 H 5.5 H Glucose 117 H 103 H POC Glucose Calcium Phosphorus Magnesium AST ALT Alkaline Phosphatase 137 H Troponin T C-Reactive Protein Total Protein 5.4 L Albumin 1.5 L Triglycerides HDL Cholesterol Miscellaneous Test Crossmatch 08/16/17 08/17/17 08/17/17 09:50 05:00 06:26 WBC RBC Hgb Hct MCV MCH RDW Plt Count Lymph % (Auto) [place] % (Auto) [place] # Seg Neutrophils % Seg Neuts % (Manual) Lymphocytes % (Manual) Monocytes % (Manual) Nucleated RBC % Seg Neutrophils # Seg Neutrophils # Man Lymphocytes # (Manual) Monocytes # (Manual) Eosinophils # (Manual) Basophils # (Manual) PT INR POC ABG pH ABG pH POC ABG pCO2 POC ABG pO2 ABG pO2 ABG O2 Saturation ABG Base Excess ABG Hemoglobin Oxyhemoglobin Sodium 134 L Potassium 3.0 L Chloride 97.8 L Carbon Dioxide BUN 30 H Creatinine 5.3 H Glucose 147 H POC Glucose 165 H Calcium 7.5 L Phosphorus Magnesium AST ALT Alkaline Phosphatase Troponin T C-Reactive Protein 32.30 H Total Protein Albumin Triglycerides HDL Cholesterol Miscellaneous Test Crossmatch 08/17/17 08/17/17 08/17/17 10:56 11:20 11:20 WBC 39.1 H RBC 3.10 L Hgb 9.2 L Hct 28.6 L MCV MCH RDW 18.3 H Plt Count 580 H Lymph % (Auto) [place] % (Auto) [place] # Seg Neutrophils % Seg Neuts % (Manual) 89.5 H Lymphocytes % (Manual) 3.5 L Monocytes % (Manual) Nucleated RBC % Seg Neutrophils # Seg Neutrophils # Man 35.0 H Lymphocytes # (Manual) Monocytes # (Manual) 2.5 H Eosinophils # (Manual) Basophils # (Manual) 0.2 H PT INR POC ABG pH 7.464 H ABG pH POC ABG pCO2 34.1 L POC ABG pO2 75 L ABG pO2 ABG O2 Saturation ABG Base Excess ABG Hemoglobin Oxyhemoglobin Sodium Potassium Chloride Carbon Dioxide BUN Creatinine Glucose POC Glucose Calcium Phosphorus Magnesium AST ALT Alkaline Phosphatase Troponin T C-Reactive Protein Total Protein Albumin Triglycerides HDL Cholesterol Miscellaneous Test Flexitest 1 H Crossmatch 08/17/17 08/17/17 08/17/17 11:20 16:57 20:20 WBC 34.4 H RBC 2.81 L Hgb 8.4 L Hct 26.0 L MCV MCH RDW 17.8 H Plt Count 455 H Lymph % (Auto) [place] % (Auto) [place] # Seg Neutrophils % Seg Neuts % (Manual) Lymphocytes % (Manual) 3.5 L Monocytes % (Manual) Nucleated RBC % 5.0 H Seg Neutrophils # Seg Neutrophils # Man 16.5 H Lymphocytes # (Manual) Monocytes # (Manual) 1.0 H Eosinophils # (Manual) Basophils # (Manual) PT 16.0 H INR 1.29 H POC ABG pH ABG pH POC ABG pCO2 POC ABG pO2 ABG pO2 ABG O2 Saturation ABG Base Excess ABG Hemoglobin Oxyhemoglobin Sodium 135 L Potassium 2.9 L* Chloride Carbon Dioxide 20 L BUN 32 H Creatinine 5.4 H Glucose 129 H POC Glucose Calcium 7.5 L Phosphorus Magnesium 1.50 L AST 85 H ALT Alkaline Phosphatase Troponin T C-Reactive Protein Total Protein 4.0 L D Albumin 1.6 L Triglycerides HDL Cholesterol Miscellaneous Test Crossmatch 08/17/17 08/17/17 08/18/17 20:54 23:47 04:26 WBC RBC Hgb Hct MCV MCH RDW Plt Count Lymph % (Auto) [place] % (Auto) [place] # Seg Neutrophils % Seg Neuts % (Manual) Lymphocytes % (Manual) Monocytes % (Manual) Nucleated RBC % Seg Neutrophils # Seg Neutrophils # Man Lymphocytes # (Manual) Monocytes # (Manual) Eosinophils # (Manual) Basophils # (Manual) PT INR POC ABG pH 7.557 H ABG pH POC ABG pCO2 23.1 L 29.0 L POC ABG pO2 187 H 148 H ABG pO2 ABG O2 Saturation ABG Base Excess ABG Hemoglobin Oxyhemoglobin Sodium Potassium Chloride Carbon Dioxide BUN Creatinine Glucose POC Glucose 188 H Calcium Phosphorus Magnesium AST ALT Alkaline Phosphatase Troponin T C-Reactive Protein Total Protein Albumin Triglycerides HDL Cholesterol Miscellaneous Test Crossmatch 08/18/17 08/18/17 08/18/17 05:51 11:44 17:07 WBC RBC Hgb Hct MCV MCH RDW Plt Count Lymph % (Auto) [place] % (Auto) [place] # Seg Neutrophils % Seg Neuts % (Manual) Lymphocytes % (Manual) Monocytes % (Manual) Nucleated RBC % Seg Neutrophils # Seg Neutrophils # Man Lymphocytes # (Manual) Monocytes # (Manual) Eosinophils # (Manual) Basophils # (Manual) PT INR POC ABG pH ABG pH POC ABG pCO2 POC ABG pO2 ABG pO2 ABG O2 Saturation ABG Base Excess ABG Hemoglobin Oxyhemoglobin Sodium Potassium Chloride Carbon Dioxide BUN Creatinine Glucose POC Glucose 202 H 195 H 182 H Calcium Phosphorus Magnesium AST ALT Alkaline Phosphatase Troponin T C-Reactive Protein Total Protein Albumin Triglycerides HDL Cholesterol Miscellaneous Test Crossmatch 08/18/17 08/18/17 08/18/17 23:45 Unknown Unknown WBC 39.0 H RBC 2.84 L Hgb 8.4 L Hct 26.5 L MCV MCH RDW 18.0 H Plt Count 476 H Lymph % (Auto) [place] % (Auto) [place] # Seg Neutrophils % Seg Neuts % (Manual) Lymphocytes % (Manual) 7.0 L Monocytes % (Manual) 10.0 H Nucleated RBC % 3.0 H Seg Neutrophils # Seg Neutrophils # Man 15.6 H Lymphocytes # (Manual) Monocytes # (Manual) 3.9 H Eosinophils # (Manual) Basophils # (Manual) PT INR POC ABG pH ABG pH POC ABG pCO2 POC ABG pO2 ABG pO2 ABG O2 Saturation ABG Base Excess ABG Hemoglobin Oxyhemoglobin Sodium Potassium Chloride Carbon Dioxide 19 L BUN 34 H Creatinine 5.6 H Glucose 201 H POC Glucose 163 H Calcium 7.8 L Phosphorus 1.90 L D Magnesium 1.60 L AST ALT Alkaline Phosphatase Troponin T C-Reactive Protein Total Protein Albumin Triglycerides HDL Cholesterol Miscellaneous Test Crossmatch 08/19/17 08/19/17 08/19/17 04:18 05:00 05:00 WBC 40.0 H RBC 2.46 L Hgb 7.3 L Hct 22.6 L MCV MCH RDW 18.1 H Plt Count Lymph % (Auto) [place] % (Auto) [place] # Seg Neutrophils % Seg Neuts % (Manual) Lymphocytes % (Manual) 8.0 L Monocytes % (Manual) Nucleated RBC % 2.0 H Seg Neutrophils # Seg Neutrophils # Man 16.4 H Lymphocytes # (Manual) Monocytes # (Manual) 1.2 H Eosinophils # (Manual) 1.2 H Basophils # (Manual) PT INR POC ABG pH 7.463 H ABG pH POC ABG pCO2 29.7 L POC ABG pO2 134 H ABG pO2 ABG O2 Saturation ABG Base Excess ABG Hemoglobin Oxyhemoglobin Sodium Potassium 5.1 H D Chloride Carbon Dioxide 20 L BUN 40 H Creatinine 5.3 H Glucose 128 H POC Glucose Calcium 7.8 L Phosphorus 1.90 L Magnesium AST ALT Alkaline Phosphatase Troponin T C-Reactive Protein Total Protein Albumin Triglycerides HDL Cholesterol Miscellaneous Test Crossmatch 08/19/17 08/19/17 08/19/17 05:19 07:37 09:52 WBC 45.0 H* RBC 2.50 L Hgb 7.5 L Hct 24.5 L MCV 98 H MCH RDW 18.4 H Plt Count Lymph % (Auto) [place] % (Auto) [place] # Seg Neutrophils % Seg Neuts % (Manual) 81.5 H Lymphocytes % (Manual) 4.0 L Monocytes % (Manual) Nucleated RBC % 1.0 H Seg Neutrophils # Seg Neutrophils # Man 36.7 H Lymphocytes # (Manual) Monocytes # (Manual) Eosinophils # (Manual) Basophils # (Manual) PT INR POC ABG pH ABG pH POC ABG pCO2 POC ABG pO2 ABG pO2 ABG O2 Saturation ABG Base Excess ABG Hemoglobin Oxyhemoglobin Sodium Potassium Chloride Carbon Dioxide BUN Creatinine Glucose POC Glucose 142 H Calcium Phosphorus Magnesium AST ALT Alkaline Phosphatase Troponin T C-Reactive Protein 34.20 H Total Protein Albumin Triglycerides HDL Cholesterol Miscellaneous Test Crossmatch 08/19/17 08/19/17 08/20/17 11:16 18:12 00:35 WBC RBC Hgb Hct MCV MCH RDW Plt Count Lymph % (Auto) [place] % (Auto) [place] # Seg Neutrophils % Seg Neuts % (Manual) Lymphocytes % (Manual) Monocytes % (Manual) Nucleated RBC % Seg Neutrophils # Seg Neutrophils # Man Lymphocytes # (Manual) Monocytes # (Manual) Eosinophils # (Manual) Basophils # (Manual) PT INR POC ABG pH ABG pH POC ABG pCO2 POC ABG pO2 ABG pO2 ABG O2 Saturation ABG Base Excess ABG Hemoglobin Oxyhemoglobin Sodium Potassium Chloride Carbon Dioxide BUN Creatinine Glucose POC Glucose 143 H 137 H 164 H Calcium Phosphorus Magnesium AST ALT Alkaline Phosphatase Troponin T C-Reactive Protein Total Protein Albumin Triglycerides HDL Cholesterol Miscellaneous Test Crossmatch 08/20/17 08/20/17 08/20/17 03:20 03:20 04:00 WBC 48.0 H* RBC 2.55 L Hgb 7.6 L Hct 23.4 L MCV MCH RDW 18.4 H Plt Count Lymph % (Auto) [place] % (Auto) [place] # Seg Neutrophils % Seg Neuts % (Manual) 90.0 H Lymphocytes % (Manual) 3.0 L Monocytes % (Manual) Nucleated RBC % Seg Neutrophils # Seg Neutrophils # Man 43.2 H Lymphocytes # (Manual) Monocytes # (Manual) 1.4 H Eosinophils # (Manual) 0.5 H Basophils # (Manual) PT INR POC ABG pH 7.499 H ABG pH POC ABG pCO2 29.1 L POC ABG pO2 ABG pO2 ABG O2 Saturation ABG Base Excess ABG Hemoglobin Oxyhemoglobin Sodium 135 L Potassium Chloride Carbon Dioxide BUN 28 H Creatinine 4.0 H Glucose 140 H POC Glucose Calcium 8.0 L Phosphorus 1.70 L Magnesium 1.60 L AST ALT Alkaline Phosphatase Troponin T C-Reactive Protein Total Protein Albumin Triglycerides HDL Cholesterol Miscellaneous Test Crossmatch 08/20/17 08/20/17 08/20/17 05:02 12:05 13:12 WBC RBC Hgb Hct MCV MCH RDW Plt Count Lymph % (Auto) [place] % (Auto) [place] # Seg Neutrophils % Seg Neuts % (Manual) Lymphocytes % (Manual) Monocytes % (Manual) Nucleated RBC % Seg Neutrophils # Seg Neutrophils # Man Lymphocytes # (Manual) Monocytes # (Manual) Eosinophils # (Manual) Basophils # (Manual) PT INR POC ABG pH 7.537 H ABG pH POC ABG pCO2 27.9 L POC ABG pO2 79 L ABG pO2 ABG O2 Saturation ABG Base Excess ABG Hemoglobin Oxyhemoglobin Sodium Potassium Chloride Carbon Dioxide BUN Creatinine Glucose POC Glucose 158 H 203 H Calcium Phosphorus Magnesium AST ALT Alkaline Phosphatase Troponin T C-Reactive Protein Total Protein Albumin Triglycerides HDL Cholesterol Miscellaneous Test Crossmatch 08/20/17 08/21/17 08/21/17 17:13 00:47 03:14 WBC RBC Hgb Hct MCV MCH RDW Plt Count Lymph % (Auto) [place] % (Auto) [place] # Seg Neutrophils % Seg Neuts % (Manual) Lymphocytes % (Manual) Monocytes % (Manual) Nucleated RBC % Seg Neutrophils # Seg Neutrophils # Man Lymphocytes # (Manual) Monocytes # (Manual) Eosinophils # (Manual) Basophils # (Manual) PT INR POC ABG pH 7.481 H ABG pH POC ABG pCO2 29.6 L POC ABG pO2 ABG pO2 ABG O2 Saturation ABG Base Excess ABG Hemoglobin Oxyhemoglobin Sodium Potassium Chloride Carbon Dioxide BUN Creatinine Glucose POC Glucose 188 H 109 H Calcium Phosphorus Magnesium AST ALT Alkaline Phosphatase Troponin T C-Reactive Protein Total Protein Albumin Triglycerides HDL Cholesterol Miscellaneous Test Crossmatch 08/21/17 08/21/17 08/21/17 05:05 06:50 06:50 WBC 44.7 H* RBC 2.41 L Hgb 7.1 L Hct 22.1 L MCV MCH RDW 18.3 H Plt Count Lymph % (Auto) [place] % (Auto) [place] # Seg Neutrophils % Seg Neuts % (Manual) 89.0 H Lymphocytes % (Manual) 0 L Monocytes % (Manual) Nucleated RBC % 1.0 H Seg Neutrophils # Seg Neutrophils # Man 39.8 H Lymphocytes # (Manual) 0.0 L Monocytes # (Manual) 1.3 H Eosinophils # (Manual) Basophils # (Manual) PT INR POC ABG pH ABG pH POC ABG pCO2 POC ABG pO2 ABG pO2 ABG O2 Saturation ABG Base Excess ABG Hemoglobin Oxyhemoglobin Sodium 135 L Potassium Chloride Carbon Dioxide BUN 39 H Creatinine 4.4 H Glucose 147 H POC Glucose 166 H Calcium 8.1 L Phosphorus Magnesium AST ALT < 5 L Alkaline Phosphatase 164 H Troponin T C-Reactive Protein Total Protein 4.7 L Albumin 1.4 L Triglycerides HDL Cholesterol Miscellaneous Test Crossmatch 08/21/17 08/21/17 08/21/17 08:00 12:21 17:02 WBC RBC Hgb Hct MCV MCH RDW Plt Count Lymph % (Auto) [place] % (Auto) [place] # Seg Neutrophils % Seg Neuts % (Manual) Lymphocytes % (Manual) Monocytes % (Manual) Nucleated RBC % Seg Neutrophils # Seg Neutrophils # Man Lymphocytes # (Manual) Monocytes # (Manual) Eosinophils # (Manual) Basophils # (Manual) PT INR POC ABG pH ABG pH POC ABG pCO2 POC ABG pO2 ABG pO2 ABG O2 Saturation ABG Base Excess ABG Hemoglobin Oxyhemoglobin Sodium Potassium Chloride Carbon Dioxide BUN Creatinine Glucose POC Glucose 147 H 135 H Calcium Phosphorus Magnesium AST ALT Alkaline Phosphatase Troponin T C-Reactive Protein Total Protein Albumin Triglycerides HDL Cholesterol Miscellaneous Test Crossmatch See Detail 08/21/17 08/22/17 08/22/17 23:38 03:40 03:40 WBC 42.5 H* RBC 2.88 L Hgb 8.5 L Hct 26.3 L MCV MCH RDW 17.9 H Plt Count Lymph % (Auto) [place] % (Auto) [place] # Seg Neutrophils % Seg Neuts % (Manual) Lymphocytes % (Manual) 5.0 L Monocytes % (Manual) Nucleated RBC % Seg Neutrophils # Seg Neutrophils # Man 19.6 H Lymphocytes # (Manual) Monocytes # (Manual) 2.6 H Eosinophils # (Manual) Basophils # (Manual) PT INR POC ABG pH ABG pH POC ABG pCO2 POC ABG pO2 ABG pO2 ABG O2 Saturation ABG Base Excess ABG Hemoglobin Oxyhemoglobin Sodium Potassium 3.3 L D Chloride Carbon Dioxide BUN 27 H Creatinine 2.9 H Glucose 144 H POC Glucose 251 H Calcium 8.0 L Phosphorus 2.40 L Magnesium AST ALT Alkaline Phosphatase Troponin T C-Reactive Protein Total Protein Albumin Triglycerides HDL Cholesterol Miscellaneous Test Crossmatch 08/22/17 08/22/17 08/22/17 06:37 08:50 11:25 WBC RBC Hgb Hct MCV MCH RDW Plt Count Lymph % (Auto) [place] % (Auto) [place] # Seg Neutrophils % Seg Neuts % (Manual) Lymphocytes % (Manual) Monocytes % (Manual) Nucleated RBC % Seg Neutrophils # Seg Neutrophils # Man Lymphocytes # (Manual) Monocytes # (Manual) Eosinophils # (Manual) Basophils # (Manual) PT INR POC ABG pH ABG pH POC ABG pCO2 POC ABG pO2 ABG pO2 ABG O2 Saturation ABG Base Excess ABG Hemoglobin Oxyhemoglobin Sodium Potassium Chloride Carbon Dioxide BUN Creatinine Glucose POC Glucose 152 H 175 H Calcium Phosphorus Magnesium AST ALT Alkaline Phosphatase Troponin T C-Reactive Protein Total Protein Albumin Triglycerides HDL Cholesterol Miscellaneous Test Flexitest 1 H Crossmatch 08/22/17 08/22/17 08/22/17 16:25 17:56 23:03 WBC RBC Hgb Hct MCV MCH RDW Plt Count Lymph % (Auto) [place] % (Auto) [place] # Seg Neutrophils % Seg Neuts % (Manual) Lymphocytes % (Manual) Monocytes % (Manual) Nucleated RBC % Seg Neutrophils # Seg Neutrophils # Man Lymphocytes # (Manual) Monocytes # (Manual) Eosinophils # (Manual) Basophils # (Manual) PT INR POC ABG pH ABG pH POC ABG pCO2 POC ABG pO2 ABG pO2 ABG O2 Saturation ABG Base Excess ABG Hemoglobin Oxyhemoglobin Sodium Potassium Chloride Carbon Dioxide BUN Creatinine Glucose POC Glucose 232 H 192 H Calcium Phosphorus Magnesium AST ALT Alkaline Phosphatase Troponin T C-Reactive Protein 30.70 H Total Protein Albumin Triglycerides HDL Cholesterol Miscellaneous Test Crossmatch 08/23/17 08/23/17 08/23/17 05:36 08:50 12:14 WBC RBC Hgb Hct MCV MCH RDW Plt Count Lymph % (Auto) [place] % (Auto) [place] # Seg Neutrophils % Seg Neuts % (Manual) Lymphocytes % (Manual) Monocytes % (Manual) Nucleated RBC % Seg Neutrophils # Seg Neutrophils # Man Lymphocytes # (Manual) Monocytes # (Manual) Eosinophils # (Manual) Basophils # (Manual) PT INR POC ABG pH ABG pH POC ABG pCO2 POC ABG pO2 ABG pO2 ABG O2 Saturation ABG Base Excess ABG Hemoglobin Oxyhemoglobin Sodium Potassium Chloride 107.1 H Carbon Dioxide BUN 49 H Creatinine 3.3 H Glucose 172 H POC Glucose 206 H 238 H Calcium Phosphorus Magnesium 2.40 H AST ALT Alkaline Phosphatase Troponin T C-Reactive Protein Total Protein Albumin Triglycerides HDL Cholesterol Miscellaneous Test Crossmatch 08/23/17 08/23/17 08/24/17 17:21 23:13 04:00 WBC 34.2 H RBC 2.86 L Hgb 8.4 L Hct 25.9 L MCV MCH RDW 17.9 H Plt Count Lymph % (Auto) [place] % (Auto) [place] # Seg Neutrophils % Seg Neuts % (Manual) 85.0 H Lymphocytes % (Manual) 0.5 L Monocytes % (Manual) Nucleated RBC % 1.0 H Seg Neutrophils # Seg Neutrophils # Man 29.1 H Lymphocytes # (Manual) 0.2 L Monocytes # (Manual) 2.4 H Eosinophils # (Manual) Basophils # (Manual) PT INR POC ABG pH ABG pH POC ABG pCO2 POC ABG pO2 ABG pO2 ABG O2 Saturation ABG Base Excess ABG Hemoglobin Oxyhemoglobin Sodium Potassium Chloride Carbon Dioxide BUN Creatinine Glucose POC Glucose 226 H 183 H Calcium Phosphorus Magnesium AST ALT Alkaline Phosphatase Troponin T C-Reactive Protein Total Protein Albumin Triglycerides HDL Cholesterol Miscellaneous Test Crossmatch 08/24/17 08/24/17 08/24/17 05:06 09:30 12:04 WBC RBC Hgb Hct MCV MCH RDW Plt Count Lymph % (Auto) [place] % (Auto) [place] # Seg Neutrophils % Seg Neuts % (Manual) Lymphocytes % (Manual) Monocytes % (Manual) Nucleated RBC % Seg Neutrophils # Seg Neutrophils # Man Lymphocytes # (Manual) Monocytes # (Manual) Eosinophils # (Manual) Basophils # (Manual) PT INR POC ABG pH ABG pH POC ABG pCO2 POC ABG pO2 ABG pO2 ABG O2 Saturation ABG Base Excess ABG Hemoglobin Oxyhemoglobin Sodium Potassium Chloride Carbon Dioxide BUN 46 H Creatinine 2.5 H Glucose 176 H POC Glucose 201 H 181 H Calcium Phosphorus Magnesium AST ALT Alkaline Phosphatase Troponin T C-Reactive Protein Total Protein Albumin Triglycerides HDL Cholesterol Miscellaneous Test Crossmatch 08/24/17 08/24/17 08/25/17 18:04 23:05 05:05 WBC RBC Hgb Hct MCV MCH RDW Plt Count Lymph % (Auto) [place] % (Auto) [place] # Seg Neutrophils % Seg Neuts % (Manual) Lymphocytes % (Manual) Monocytes % (Manual) Nucleated RBC % Seg Neutrophils # Seg Neutrophils # Man Lymphocytes # (Manual) Monocytes # (Manual) Eosinophils # (Manual) Basophils # (Manual) PT INR POC ABG pH ABG pH POC ABG pCO2 POC ABG pO2 ABG pO2 ABG O2 Saturation ABG Base Excess ABG Hemoglobin Oxyhemoglobin Sodium Potassium Chloride Carbon Dioxide BUN Creatinine Glucose POC Glucose 189 H 175 H 190 H Calcium Phosphorus Magnesium AST ALT Alkaline Phosphatase Troponin T C-Reactive Protein Total Protein Albumin Triglycerides HDL Cholesterol Miscellaneous Test Crossmatch 08/25/17 08/25/17 08/26/17 07:02 11:53 05:30 WBC 33.5 H RBC 2.47 L Hgb 7.3 L Hct 23.0 L MCV MCH RDW 21.3 H Plt Count Lymph % (Auto) [place] % (Auto) [place] # Seg Neutrophils % Seg Neuts % (Manual) 92.0 H Lymphocytes % (Manual) 1.0 L Monocytes % (Manual) Nucleated RBC % Seg Neutrophils # Seg Neutrophils # Man 30.8 H Lymphocytes # (Manual) 0.3 L Monocytes # (Manual) Eosinophils # (Manual) Basophils # (Manual) PT INR POC ABG pH ABG pH POC ABG pCO2 POC ABG pO2 ABG pO2 ABG O2 Saturation ABG Base Excess ABG Hemoglobin Oxyhemoglobin Sodium Potassium Chloride Carbon Dioxide BUN 32 H Creatinine 5.0 H D Glucose 117 H POC Glucose 191 H Calcium 8.0 L Phosphorus Magnesium AST ALT Alkaline Phosphatase Troponin T C-Reactive Protein Total Protein Albumin Triglycerides HDL Cholesterol Miscellaneous Test Crossmatch 08/26/17 08/26/17 08/26/17 05:30 06:44 13:26 WBC RBC Hgb Hct MCV MCH RDW Plt Count Lymph % (Auto) [place] % (Auto) [place] # Seg Neutrophils % Seg Neuts % (Manual) Lymphocytes % (Manual) Monocytes % (Manual) Nucleated RBC % Seg Neutrophils # Seg Neutrophils # Man Lymphocytes # (Manual) Monocytes # (Manual) Eosinophils # (Manual) Basophils # (Manual) PT INR POC ABG pH ABG pH POC ABG pCO2 POC ABG pO2 ABG pO2 ABG O2 Saturation ABG Base Excess ABG Hemoglobin Oxyhemoglobin Sodium Potassium 5.2 H Chloride Carbon Dioxide BUN 80 H Creatinine 3.4 H Glucose 193 H POC Glucose 232 H 207 H Calcium 8.3 L Phosphorus 6.80 H D Magnesium 2.60 H AST 135 H ALT Alkaline Phosphatase 211 H Troponin T C-Reactive Protein Total Protein 4.8 L Albumin 2.0 L Triglycerides HDL Cholesterol Miscellaneous Test Crossmatch 08/27/17 08/27/17 08/27/17 01:08 06:20 06:20 WBC 35.0 H RBC 2.75 L Hgb 8.4 L Hct 25.1 L MCV MCH RDW 21.8 H Plt Count Lymph % (Auto) [place] % (Auto) [place] # Seg Neutrophils % Seg Neuts % (Manual) Lymphocytes % (Manual) 4.5 L Monocytes % (Manual) Nucleated RBC % Seg Neutrophils # Seg Neutrophils # Man 31.9 H Lymphocytes # (Manual) Monocytes # (Manual) 1.2 H Eosinophils # (Manual) Basophils # (Manual) PT INR POC ABG pH ABG pH POC ABG pCO2 POC ABG pO2 ABG pO2 ABG O2 Saturation ABG Base Excess ABG Hemoglobin Oxyhemoglobin Sodium Potassium Chloride Carbon Dioxide BUN 61 H Creatinine 2.6 H Glucose 184 H POC Glucose 146 H Calcium Phosphorus 4.90 H D Magnesium AST ALT Alkaline Phosphatase Troponin T C-Reactive Protein Total Protein Albumin Triglycerides HDL Cholesterol Miscellaneous Test Crossmatch 08/27/17 08/27/17 08/27/17 07:01 09:17 12:52 WBC RBC Hgb Hct MCV MCH RDW Plt Count Lymph % (Auto) [place] % (Auto) [place] # Seg Neutrophils % Seg Neuts % (Manual) Lymphocytes % (Manual) Monocytes % (Manual) Nucleated RBC % Seg Neutrophils # Seg Neutrophils # Man Lymphocytes # (Manual) Monocytes # (Manual) Eosinophils # (Manual) Basophils # (Manual) PT INR POC ABG pH ABG pH POC ABG pCO2 POC ABG pO2 ABG pO2 ABG O2 Saturation ABG Base Excess ABG Hemoglobin Oxyhemoglobin Sodium Potassium Chloride Carbon Dioxide BUN Creatinine Glucose POC Glucose 165 H 198 H 218 H Calcium Phosphorus Magnesium AST ALT Alkaline Phosphatase Troponin T C-Reactive Protein Total Protein Albumin Triglycerides HDL Cholesterol Miscellaneous Test Crossmatch 08/27/17 08/28/17 08/28/17 17:27 02:13 06:46 WBC RBC Hgb Hct MCV MCH RDW Plt Count Lymph % (Auto) [place] % (Auto) [place] # Seg Neutrophils % Seg Neuts % (Manual) Lymphocytes % (Manual) Monocytes % (Manual) Nucleated RBC % Seg Neutrophils # Seg Neutrophils # Man Lymphocytes # (Manual) Monocytes # (Manual) Eosinophils # (Manual) Basophils # (Manual) PT INR POC ABG pH ABG pH POC ABG pCO2 POC ABG pO2 ABG pO2 ABG O2 Saturation ABG Base Excess ABG Hemoglobin Oxyhemoglobin Sodium Potassium Chloride Carbon Dioxide BUN Creatinine Glucose POC Glucose 151 H 155 H 230 H Calcium Phosphorus Magnesium AST ALT Alkaline Phosphatase Troponin T C-Reactive Protein Total Protein Albumin Triglycerides HDL Cholesterol Miscellaneous Test Crossmatch 08/28/17 08/28/17 08/28/17 06:53 06:53 08:19 WBC 31.1 H RBC 2.26 L Hgb 6.8 L Hct 20.9 L MCV MCH RDW 21.7 H Plt Count Lymph % (Auto) [place] % (Auto) [place] # Seg Neutrophils % Seg Neuts % (Manual) 83.0 H Lymphocytes % (Manual) 4.0 L Monocytes % (Manual) Nucleated RBC % Seg Neutrophils # Seg Neutrophils # Man 25.8 H Lymphocytes # (Manual) Monocytes # (Manual) Eosinophils # (Manual) Basophils # (Manual) PT INR POC ABG pH ABG pH POC ABG pCO2 POC ABG pO2 ABG pO2 ABG O2 Saturation ABG Base Excess ABG Hemoglobin Oxyhemoglobin Sodium Potassium Chloride Carbon Dioxide BUN 81 H Creatinine 3.4 H Glucose 218 H POC Glucose 239 H Calcium Phosphorus 4.90 H Magnesium AST ALT Alkaline Phosphatase Troponin T C-Reactive Protein Total Protein Albumin Triglycerides HDL Cholesterol Miscellaneous Test Crossmatch 08/28/17 08/28/17 08/28/17 11:56 13:05 13:29 WBC RBC Hgb Hct MCV MCH RDW Plt Count Lymph % (Auto) [place] % (Auto) [place] # Seg Neutrophils % Seg Neuts % (Manual) Lymphocytes % (Manual) Monocytes % (Manual) Nucleated RBC % Seg Neutrophils # Seg Neutrophils # Man Lymphocytes # (Manual) Monocytes # (Manual) Eosinophils # (Manual) Basophils # (Manual) PT 16.7 H INR 1.29 H POC ABG pH ABG pH POC ABG pCO2 POC ABG pO2 338 H ABG pO2 ABG O2 Saturation ABG Base Excess ABG Hemoglobin Oxyhemoglobin Sodium Potassium Chloride Carbon Dioxide BUN Creatinine Glucose POC Glucose Calcium Phosphorus Magnesium AST ALT Alkaline Phosphatase Troponin T C-Reactive Protein Total Protein Albumin Triglycerides HDL Cholesterol Miscellaneous Test Crossmatch See Detail 08/28/17 08/28/17 08/29/17 16:22 19:20 04:24 WBC RBC Hgb Hct MCV MCH RDW Plt Count Lymph % (Auto) [place] % (Auto) [place] # Seg Neutrophils % Seg Neuts % (Manual) Lymphocytes % (Manual) Monocytes % (Manual) Nucleated RBC % Seg Neutrophils # Seg Neutrophils # Man Lymphocytes # (Manual) Monocytes # (Manual) Eosinophils # (Manual) Basophils # (Manual) PT INR POC ABG pH 7.469 H ABG pH POC ABG pCO2 POC ABG pO2 240 H ABG pO2 ABG O2 Saturation ABG Base Excess ABG Hemoglobin Oxyhemoglobin Sodium Potassium Chloride Carbon Dioxide BUN Creatinine Glucose POC Glucose 209 H 195 H Calcium Phosphorus Magnesium AST ALT Alkaline Phosphatase Troponin T C-Reactive Protein Total Protein Albumin Triglycerides HDL Cholesterol Miscellaneous Test Crossmatch 08/29/17 08/29/17 08/29/17 04:30 04:30 12:07 WBC 44.9 H* RBC Hgb Hct MCV MCH RDW 23.1 H Plt Count Lymph % (Auto) [place] % (Auto) [place] # Seg Neutrophils % Seg Neuts % (Manual) 38.0 L Lymphocytes % (Manual) 10.0 L Monocytes % (Manual) 10.0 H Nucleated RBC % 6.0 H Seg Neutrophils # Seg Neutrophils # Man 17.1 H Lymphocytes # (Manual) Monocytes # (Manual) 4.5 H Eosinophils # (Manual) Basophils # (Manual) PT INR POC ABG pH ABG pH POC ABG pCO2 POC ABG pO2 ABG pO2 ABG O2 Saturation ABG Base Excess ABG Hemoglobin Oxyhemoglobin Sodium Potassium Chloride Carbon Dioxide BUN 61 H Creatinine 2.4 H Glucose 226 H POC Glucose 200 H Calcium Phosphorus Magnesium AST ALT Alkaline Phosphatase Troponin T C-Reactive Protein Total Protein Albumin Triglycerides HDL Cholesterol Miscellaneous Test Crossmatch 08/29/17 08/29/17 08/29/17 12:30 12:30 17:23 WBC RBC Hgb Hct MCV MCH RDW Plt Count Lymph % (Auto) [place] % (Auto) [place] # Seg Neutrophils % Seg Neuts % (Manual) Lymphocytes % (Manual) Monocytes % (Manual) Nucleated RBC % Seg Neutrophils # Seg Neutrophils # Man Lymphocytes # (Manual) Monocytes # (Manual) Eosinophils # (Manual) Basophils # (Manual) PT INR POC ABG pH ABG pH POC ABG pCO2 POC ABG pO2 ABG pO2 ABG O2 Saturation ABG Base Excess ABG Hemoglobin Oxyhemoglobin Sodium Potassium Chloride Carbon Dioxide BUN Creatinine Glucose POC Glucose 270 H Calcium Phosphorus Magnesium AST ALT Alkaline Phosphatase Troponin T C-Reactive Protein 19.10 H Total Protein Albumin Triglycerides HDL Cholesterol Miscellaneous Test Flexitest 1 H Crossmatch 08/30/17 08/30/17 08/30/17 00:10 01:30 03:31 WBC RBC Hgb Hct MCV MCH RDW Plt Count Lymph % (Auto) [place] % (Auto) [place] # Seg Neutrophils % Seg Neuts % (Manual) Lymphocytes % (Manual) Monocytes % (Manual) Nucleated RBC % Seg Neutrophils # Seg Neutrophils # Man Lymphocytes # (Manual) Monocytes # (Manual) Eosinophils # (Manual) Basophils # (Manual) PT INR POC ABG pH 7.168 L 7.335 L ABG pH POC ABG pCO2 72.8 H POC ABG pO2 257 H 117 H ABG pO2 ABG O2 Saturation ABG Base Excess ABG Hemoglobin Oxyhemoglobin Sodium Potassium Chloride Carbon Dioxide BUN Creatinine Glucose POC Glucose 245 H Calcium Phosphorus Magnesium AST ALT Alkaline Phosphatase Troponin T C-Reactive Protein Total Protein Albumin Triglycerides HDL Cholesterol Miscellaneous Test Crossmatch 08/30/17 08/30/17 08/30/17 05:20 05:20 05:20 WBC 40.9 H* RBC 3.64 L Hgb Hct MCV MCH RDW 24.3 H Plt Count Lymph % (Auto) [place] % (Auto) [place] # Seg Neutrophils % Seg Neuts % (Manual) 80.0 H Lymphocytes % (Manual) 3.0 L Monocytes % (Manual) Nucleated RBC % 1.0 H Seg Neutrophils # Seg Neutrophils # Man 32.7 H Lymphocytes # (Manual) Monocytes # (Manual) Eosinophils # (Manual) Basophils # (Manual) PT INR POC ABG pH ABG pH POC ABG pCO2 POC ABG pO2 ABG pO2 ABG O2 Saturation ABG Base Excess ABG Hemoglobin Oxyhemoglobin Sodium Potassium Chloride Carbon Dioxide BUN 83 H Creatinine 2.9 H Glucose 334 H POC Glucose 309 H Calcium Phosphorus Magnesium AST ALT Alkaline Phosphatase Troponin T C-Reactive Protein Total Protein Albumin Triglycerides HDL Cholesterol Miscellaneous Test Crossmatch 08/30/17 08/30/17 08/31/17 12:18 17:36 00:17 WBC RBC Hgb Hct MCV MCH RDW Plt Count Lymph % (Auto) [place] % (Auto) [place] # Seg Neutrophils % Seg Neuts % (Manual) Lymphocytes % (Manual) Monocytes % (Manual) Nucleated RBC % Seg Neutrophils # Seg Neutrophils # Man Lymphocytes # (Manual) Monocytes # (Manual) Eosinophils # (Manual) Basophils # (Manual) PT INR POC ABG pH ABG pH POC ABG pCO2 POC ABG pO2 ABG pO2 ABG O2 Saturation ABG Base Excess ABG Hemoglobin Oxyhemoglobin Sodium Potassium Chloride Carbon Dioxide BUN Creatinine Glucose POC Glucose 273 H 293 H 360 H Calcium Phosphorus Magnesium AST ALT Alkaline Phosphatase Troponin T C-Reactive Protein Total Protein Albumin Triglycerides HDL Cholesterol Miscellaneous Test Crossmatch 1008/31/17 08/31/17 05:30 05:30 05:32 WBC 29.9 H RBC 2.89 L Hgb 8.2 L Hct 24.7 L D MCV MCH RDW 24.4 H Plt Count Lymph % (Auto) [place] % (Auto) [place] # Seg Neutrophils % Seg Neuts % (Manual) Lymphocytes % (Manual) 2.0 L Monocytes % (Manual) Nucleated RBC % 2.0 H Seg Neutrophils # Seg Neutrophils # Man 18.5 H Lymphocytes # (Manual) 0.6 L Monocytes # (Manual) 0.9 H Eosinophils # (Manual) Basophils # (Manual) PT INR POC ABG pH ABG pH POC ABG pCO2 POC ABG pO2 ABG pO2 ABG O2 Saturation ABG Base Excess ABG Hemoglobin Oxyhemoglobin Sodium Potassium Chloride Carbon Dioxide BUN 62 H Creatinine 2.2 H Glucose 245 H POC Glucose 257 H Calcium Phosphorus 2.10 L D Magnesium 1.60 L AST ALT Alkaline Phosphatase Troponin T C-Reactive Protein Total Protein Albumin Triglycerides HDL Cholesterol Miscellaneous Test Crossmatch 08/31/17 08/31/17 08/31/17 11:56 12:05 18:14 WBC 32.5 H RBC 3.19 L Hgb 8.8 L Hct 27.9 L MCV MCH RDW 24.9 H Plt Count Lymph % (Auto) [place] % (Auto) [place] # Seg Neutrophils % Seg Neuts % (Manual) Lymphocytes % (Manual) 1.0 L Monocytes % (Manual) 12.0 H Nucleated RBC % 1.0 H Seg Neutrophils # Seg Neutrophils # Man 13.3 H Lymphocytes # (Manual) 0.3 L Monocytes # (Manual) 3.9 H Eosinophils # (Manual) Basophils # (Manual) PT INR POC ABG pH ABG pH POC ABG pCO2 POC ABG pO2 ABG pO2 ABG O2 Saturation ABG Base Excess ABG Hemoglobin Oxyhemoglobin Sodium Potassium Chloride Carbon Dioxide BUN Creatinine Glucose POC Glucose 245 H Calcium Phosphorus Magnesium AST ALT Alkaline Phosphatase Troponin T C-Reactive Protein Total Protein Albumin Triglycerides HDL Cholesterol Miscellaneous Test Crossmatch See Detail 08/31/17 08/31/17 08/31/17 18:14 18:15 18:22 WBC RBC Hgb Hct MCV MCH RDW Plt Count Lymph % (Auto) [place] % (Auto) [place] # Seg Neutrophils % Seg Neuts % (Manual) Lymphocytes % (Manual) Monocytes % (Manual) Nucleated RBC % Seg Neutrophils # Seg Neutrophils # Man Lymphocytes # (Manual) Monocytes # (Manual) Eosinophils # (Manual) Basophils # (Manual) PT 15.1 H INR POC ABG pH ABG pH POC ABG pCO2 POC ABG pO2 ABG pO2 ABG O2 Saturation ABG Base Excess ABG Hemoglobin Oxyhemoglobin Sodium 136 L Potassium Chloride Carbon Dioxide 21 L BUN 69 H Creatinine 2.3 H Glucose 227 H POC Glucose 240 H Calcium Phosphorus 2.40 L Magnesium 1.50 L AST 143 H ALT 114 H Alkaline Phosphatase 267 H Troponin T C-Reactive Protein Total Protein 4.1 L Albumin 1.8 L Triglycerides HDL Cholesterol Miscellaneous Test Crossmatch 08/31/17 09/01/17 09/01/17 23:53 05:00 05:00 WBC 33.9 H RBC 2.85 L Hgb 7.8 L Hct 24.8 L MCV MCH 27 L RDW 23.9 H Plt Count Lymph % (Auto) [place] % (Auto) [place] # Seg Neutrophils % Seg Neuts % (Manual) Lymphocytes % (Manual) 5.0 L Monocytes % (Manual) Nucleated RBC % Seg Neutrophils # Seg Neutrophils # Man 23.1 H Lymphocytes # (Manual) Monocytes # (Manual) Eosinophils # (Manual) Basophils # (Manual) PT INR POC ABG pH ABG pH POC ABG pCO2 POC ABG pO2 ABG pO2 ABG O2 Saturation ABG Base Excess ABG Hemoglobin Oxyhemoglobin Sodium Potassium Chloride Carbon Dioxide BUN 51 H Creatinine 1.8 H Glucose 195 H POC Glucose 301 H Calcium Phosphorus 1.70 L D Magnesium 1.60 L AST 80 H ALT 82 H Alkaline Phosphatase 243 H Troponin T C-Reactive Protein Total Protein 4.2 L Albumin 1.7 L Triglycerides HDL Cholesterol Miscellaneous Test Crossmatch 09/01/17 09/01/17 09/01/17 05:20 05:47 11:37 WBC RBC Hgb Hct MCV MCH RDW Plt Count Lymph % (Auto) [place] % (Auto) [place] # Seg Neutrophils % Seg Neuts % (Manual) Lymphocytes % (Manual) Monocytes % (Manual) Nucleated RBC % Seg Neutrophils # Seg Neutrophils # Man Lymphocytes # (Manual) Monocytes # (Manual) Eosinophils # (Manual) Basophils # (Manual) PT INR POC ABG pH ABG pH 7.348 L POC ABG pCO2 POC ABG pO2 ABG pO2 70.2 L ABG O2 Saturation ABG Base Excess ABG Hemoglobin 7.5 L Oxyhemoglobin Sodium Potassium Chloride Carbon Dioxide BUN Creatinine Glucose POC Glucose 230 H 254 H Calcium Phosphorus Magnesium AST ALT Alkaline Phosphatase Troponin T C-Reactive Protein Total Protein Albumin Triglycerides HDL Cholesterol Miscellaneous Test Crossmatch 09/01/17 09/01/17 09/02/17 17:39 23:14 04:55 WBC RBC Hgb Hct MCV MCH RDW Plt Count Lymph % (Auto) [place] % (Auto) [place] # Seg Neutrophils % Seg Neuts % (Manual) Lymphocytes % (Manual) Monocytes % (Manual) Nucleated RBC % Seg Neutrophils # Seg Neutrophils # Man Lymphocytes # (Manual) Monocytes # (Manual) Eosinophils # (Manual) Basophils # (Manual) PT INR POC ABG pH ABG pH POC ABG pCO2 POC ABG pO2 ABG pO2 124.8 H ABG O2 Saturation ABG Base Excess -2.9 L ABG Hemoglobin 5.8 L Oxyhemoglobin Sodium Potassium Chloride Carbon Dioxide BUN Creatinine Glucose POC Glucose 297 H 291 H Calcium Phosphorus Magnesium AST ALT Alkaline Phosphatase Troponin T C-Reactive Protein Total Protein Albumin Triglycerides HDL Cholesterol Miscellaneous Test Crossmatch 09/02/17 09/02/17 09/02/17 05:31 06:10 11:58 WBC RBC Hgb Hct MCV MCH RDW Plt Count Lymph % (Auto) [place] % (Auto) [place] # Seg Neutrophils % Seg Neuts % (Manual) Lymphocytes % (Manual) Monocytes % (Manual) Nucleated RBC % Seg Neutrophils # Seg Neutrophils # Man Lymphocytes # (Manual) Monocytes # (Manual) Eosinophils # (Manual) Basophils # (Manual) PT INR POC ABG pH ABG pH POC ABG pCO2 POC ABG pO2 ABG pO2 ABG O2 Saturation ABG Base Excess ABG Hemoglobin Oxyhemoglobin Sodium Potassium Chloride Carbon Dioxide BUN 68 H Creatinine 2.2 H Glucose 369 H POC Glucose 245 H 333 H Calcium 8.2 L Phosphorus Magnesium AST ALT Alkaline Phosphatase Troponin T C-Reactive Protein Total Protein Albumin Triglycerides HDL Cholesterol Miscellaneous Test Crossmatch 09/02/17 09/02/17 09/03/17 15:37 23:50 04:00 WBC RBC Hgb Hct MCV MCH RDW Plt Count Lymph % (Auto) [place] % (Auto) [place] # Seg Neutrophils % Seg Neuts % (Manual) Lymphocytes % (Manual) Monocytes % (Manual) Nucleated RBC % Seg Neutrophils # Seg Neutrophils # Man Lymphocytes # (Manual) Monocytes # (Manual) Eosinophils # (Manual) Basophils # (Manual) PT INR POC ABG pH ABG pH POC ABG pCO2 POC ABG pO2 ABG pO2 ABG O2 Saturation ABG Base Excess ABG Hemoglobin Oxyhemoglobin Sodium Potassium Chloride Carbon Dioxide BUN 59 H Creatinine 1.9 H Glucose 231 H POC Glucose 314 H 240 H Calcium 8.0 L Phosphorus Magnesium AST ALT Alkaline Phosphatase 265 H Troponin T C-Reactive Protein Total Protein 4.4 L Albumin 1.7 L Triglycerides 180 H HDL Cholesterol Miscellaneous Test Crossmatch 09/03/17 09/03/17 09/03/17 05:00 05:32 11:52 WBC 41.5 H* RBC 2.46 L Hgb 6.9 L Hct 21.3 L MCV MCH RDW 24.9 H Plt Count Lymph % (Auto) [place] % (Auto) [place] # Seg Neutrophils % Seg Neuts % (Manual) Lymphocytes % (Manual) 3.0 L Monocytes % (Manual) 9.5 H Nucleated RBC % 1.5 H Seg Neutrophils # Seg Neutrophils # Man 28.8 H Lymphocytes # (Manual) Monocytes # (Manual) 3.9 H Eosinophils # (Manual) Basophils # (Manual) PT INR POC ABG pH ABG pH POC ABG pCO2 POC ABG pO2 ABG pO2 ABG O2 Saturation ABG Base Excess ABG Hemoglobin Oxyhemoglobin Sodium Potassium Chloride Carbon Dioxide BUN Creatinine Glucose POC Glucose 188 H 285 H Calcium Phosphorus Magnesium AST ALT Alkaline Phosphatase Troponin T C-Reactive Protein Total Protein Albumin Triglycerides HDL Cholesterol Miscellaneous Test Crossmatch 09/03/17 09/03/17 09/03/17 16:55 17:44 23:56 WBC RBC Hgb Hct MCV MCH RDW Plt Count Lymph % (Auto) [place] % (Auto) [place] # Seg Neutrophils % Seg Neuts % (Manual) Lymphocytes % (Manual) Monocytes % (Manual) Nucleated RBC % Seg Neutrophils # Seg Neutrophils # Man Lymphocytes # (Manual) Monocytes # (Manual) Eosinophils # (Manual) Basophils # (Manual) PT INR POC ABG pH ABG pH POC ABG pCO2 POC ABG pO2 ABG pO2 ABG O2 Saturation ABG Base Excess ABG Hemoglobin Oxyhemoglobin Sodium Potassium Chloride Carbon Dioxide BUN Creatinine Glucose POC Glucose 217 H 193 H Calcium Phosphorus Magnesium AST ALT Alkaline Phosphatase Troponin T C-Reactive Protein Total Protein Albumin Triglycerides HDL Cholesterol Miscellaneous Test Crossmatch See Detail 09/03/17 09/04/17 09/04/17 Unknown 03:47 04:32 WBC 44.7 H* RBC 3.12 L Hgb 8.7 L Hct 26.7 L MCV MCH RDW 23.5 H Plt Count Lymph % (Auto) [place] % (Auto) [place] # Seg Neutrophils % Seg Neuts % (Manual) Lymphocytes % (Manual) 4.0 L Monocytes % (Manual) Nucleated RBC % 2.0 H Seg Neutrophils # Seg Neutrophils # Man 30.8 H Lymphocytes # (Manual) Monocytes # (Manual) 2.2 H Eosinophils # (Manual) Basophils # (Manual) PT INR POC ABG pH ABG pH POC ABG pCO2 POC ABG pO2 ABG pO2 133.4 H 135.0 H ABG O2 Saturation ABG Base Excess -2.5 L ABG Hemoglobin 5.8 L 7.9 L Oxyhemoglobin Sodium Potassium Chloride Carbon Dioxide BUN Creatinine Glucose POC Glucose Calcium Phosphorus Magnesium AST ALT Alkaline Phosphatase Troponin T C-Reactive Protein Total Protein Albumin Triglycerides HDL Cholesterol Miscellaneous Test Crossmatch 09/04/17 09/04/17 09/04/17 04:32 05:48 10:43 WBC RBC Hgb Hct MCV MCH RDW Plt Count Lymph % (Auto) [place] % (Auto) [place] # Seg Neutrophils % Seg Neuts % (Manual) Lymphocytes % (Manual) Monocytes % (Manual) Nucleated RBC % Seg Neutrophils # Seg Neutrophils # Man Lymphocytes # (Manual) Monocytes # (Manual) Eosinophils # (Manual) Basophils # (Manual) PT INR POC ABG pH ABG pH POC ABG pCO2 POC ABG pO2 ABG pO2 ABG O2 Saturation ABG Base Excess ABG Hemoglobin Oxyhemoglobin Sodium 136 L Potassium 5.2 H D Chloride 94.2 L Carbon Dioxide BUN 71 H Creatinine 2.3 H Glucose 235 H POC Glucose 329 H Calcium 8.3 L Phosphorus Magnesium AST ALT Alkaline Phosphatase Troponin T C-Reactive Protein Total Protein Albumin Triglycerides HDL Cholesterol Miscellaneous Test Flexitest 1 H Crossmatch 09/04/17 09/04/17 09/05/17 12:38 17:30 00:15 WBC RBC Hgb Hct MCV MCH RDW Plt Count Lymph % (Auto) [place] % (Auto) [place] # Seg Neutrophils % Seg Neuts % (Manual) Lymphocytes % (Manual) Monocytes % (Manual) Nucleated RBC % Seg Neutrophils # Seg Neutrophils # Man Lymphocytes # (Manual) Monocytes # (Manual) Eosinophils # (Manual) Basophils # (Manual) PT INR POC ABG pH ABG pH POC ABG pCO2 POC ABG pO2 ABG pO2 ABG O2 Saturation ABG Base Excess ABG Hemoglobin Oxyhemoglobin Sodium Potassium Chloride Carbon Dioxide BUN Creatinine Glucose POC Glucose 444 H 331 H 362 H Calcium Phosphorus Magnesium AST ALT Alkaline Phosphatase Troponin T C-Reactive Protein Total Protein Albumin Triglycerides HDL Cholesterol Miscellaneous Test Crossmatch 09/05/17 09/05/17 09/05/17 03:55 03:55 12:12 WBC 35.3 H RBC 2.87 L Hgb 8.1 L Hct 24.6 L MCV MCH RDW 23.3 H Plt Count Lymph % (Auto) [place] % (Auto) [place] # Seg Neutrophils % Seg Neuts % (Manual) 89.5 H Lymphocytes % (Manual) 3.0 L Monocytes % (Manual) Nucleated RBC % 2.5 H Seg Neutrophils # Seg Neutrophils # Man 31.6 H Lymphocytes # (Manual) 1.1 L Monocytes # (Manual) Eosinophils # (Manual) Basophils # (Manual) PT INR POC ABG pH ABG pH POC ABG pCO2 POC ABG pO2 ABG pO2 ABG O2 Saturation ABG Base Excess ABG Hemoglobin Oxyhemoglobin Sodium 136 L Potassium Chloride 94.7 L Carbon Dioxide BUN 55 H Creatinine 1.8 H Glucose 193 H POC Glucose 344 H Calcium 8.1 L Phosphorus Magnesium AST ALT Alkaline Phosphatase Troponin T C-Reactive Protein Total Protein Albumin Triglycerides HDL Cholesterol Miscellaneous Test Crossmatch 09/05/17 09/05/17 09/05/17 14:32 15:32 16:41 WBC RBC Hgb Hct MCV MCH RDW Plt Count Lymph % (Auto) [place] % (Auto) [place] # Seg Neutrophils % Seg Neuts % (Manual) Lymphocytes % (Manual) Monocytes % (Manual) Nucleated RBC % Seg Neutrophils # Seg Neutrophils # Man Lymphocytes # (Manual) Monocytes # (Manual) Eosinophils # (Manual) Basophils # (Manual) PT INR POC ABG pH ABG pH POC ABG pCO2 POC ABG pO2 ABG pO2 ABG O2 Saturation ABG Base Excess ABG Hemoglobin Oxyhemoglobin Sodium Potassium Chloride Carbon Dioxide BUN Creatinine Glucose POC Glucose 265 H 145 H 188 H Calcium Phosphorus Magnesium AST ALT Alkaline Phosphatase Troponin T C-Reactive Protein Total Protein Albumin Triglycerides HDL Cholesterol Miscellaneous Test Crossmatch 09/05/17 09/05/17 09/05/17 17:28 18:38 20:10 WBC RBC Hgb Hct MCV MCH RDW Plt Count Lymph % (Auto) [place] % (Auto) [place] # Seg Neutrophils % Seg Neuts % (Manual) Lymphocytes % (Manual) Monocytes % (Manual) Nucleated RBC % Seg Neutrophils # Seg Neutrophils # Man Lymphocytes # (Manual) Monocytes # (Manual) Eosinophils # (Manual) Basophils # (Manual) PT INR POC ABG pH ABG pH POC ABG pCO2 POC ABG pO2 ABG pO2 ABG O2 Saturation ABG Base Excess ABG Hemoglobin Oxyhemoglobin Sodium Potassium Chloride Carbon Dioxide BUN Creatinine Glucose POC Glucose 246 H 271 H 165 H Calcium Phosphorus Magnesium AST ALT Alkaline Phosphatase Troponin T C-Reactive Protein Total Protein Albumin Triglycerides HDL Cholesterol Miscellaneous Test Crossmatch 09/05/17 09/05/17 09/06/17 21:06 23:07 00:10 WBC RBC Hgb Hct MCV MCH RDW Plt Count Lymph % (Auto) [place] % (Auto) [place] # Seg Neutrophils % Seg Neuts % (Manual) Lymphocytes % (Manual) Monocytes % (Manual) Nucleated RBC % Seg Neutrophils # Seg Neutrophils # Man Lymphocytes # (Manual) Monocytes # (Manual) Eosinophils # (Manual) Basophils # (Manual) PT INR POC ABG pH ABG pH POC ABG pCO2 POC ABG pO2 ABG pO2 ABG O2 Saturation ABG Base Excess ABG Hemoglobin Oxyhemoglobin Sodium Potassium Chloride Carbon Dioxide BUN Creatinine Glucose POC Glucose 134 H 135 H 147 H Calcium Phosphorus Magnesium AST ALT Alkaline Phosphatase Troponin T C-Reactive Protein Total Protein Albumin Triglycerides HDL Cholesterol Miscellaneous Test Crossmatch 09/06/17 09/06/17 09/06/17 01:08 02:01 03:08 WBC RBC Hgb Hct MCV MCH RDW Plt Count Lymph % (Auto) [place] % (Auto) [place] # Seg Neutrophils % Seg Neuts % (Manual) Lymphocytes % (Manual) Monocytes % (Manual) Nucleated RBC % Seg Neutrophils # Seg Neutrophils # Man Lymphocytes # (Manual) Monocytes # (Manual) Eosinophils # (Manual) Basophils # (Manual) PT INR POC ABG pH ABG pH POC ABG pCO2 POC ABG pO2 ABG pO2 ABG O2 Saturation ABG Base Excess ABG Hemoglobin Oxyhemoglobin Sodium Potassium Chloride Carbon Dioxide BUN Creatinine Glucose POC Glucose 133 H 146 H 135 H Calcium Phosphorus Magnesium AST ALT Alkaline Phosphatase Troponin T C-Reactive Protein Total Protein Albumin Triglycerides HDL Cholesterol Miscellaneous Test Crossmatch 09/06/17 09/06/17 09/06/17 05:30 05:30 05:30 WBC 38.6 H RBC 2.95 L Hgb 8.3 L Hct 25.3 L MCV MCH RDW 22.2 H Plt Count Lymph % (Auto) [place] % (Auto) [place] # Seg Neutrophils % Seg Neuts % (Manual) Lymphocytes % (Manual) 2.0 L Monocytes % (Manual) Nucleated RBC % 5.0 H Seg Neutrophils # Seg Neutrophils # Man 25.9 H Lymphocytes # (Manual) 0.8 L Monocytes # (Manual) 1.9 H Eosinophils # (Manual) Basophils # (Manual) PT INR POC ABG pH ABG pH POC ABG pCO2 POC ABG pO2 ABG pO2 ABG O2 Saturation ABG Base Excess ABG Hemoglobin Oxyhemoglobin Sodium 135 L Potassium Chloride 93.5 L Carbon Dioxide BUN 82 H Creatinine 2.3 H Glucose 148 H POC Glucose Calcium Phosphorus Magnesium AST ALT Alkaline Phosphatase Troponin T C-Reactive Protein 2.80 H Total Protein Albumin Triglycerides HDL Cholesterol Miscellaneous Test Crossmatch 09/06/17 09/06/17 09/06/17 05:48 08:04 09:06 WBC RBC Hgb Hct MCV MCH RDW Plt Count Lymph % (Auto) [place] % (Auto) [place] # Seg Neutrophils % Seg Neuts % (Manual) Lymphocytes % (Manual) Monocytes % (Manual) Nucleated RBC % Seg Neutrophils # Seg Neutrophils # Man Lymphocytes # (Manual) Monocytes # (Manual) Eosinophils # (Manual) Basophils # (Manual) PT INR POC ABG pH ABG pH POC ABG pCO2 POC ABG pO2 ABG pO2 ABG O2 Saturation ABG Base Excess ABG Hemoglobin Oxyhemoglobin Sodium Potassium Chloride Carbon Dioxide BUN Creatinine Glucose POC Glucose 152 H 164 H 172 H Calcium Phosphorus Magnesium AST ALT Alkaline Phosphatase Troponin T C-Reactive Protein Total Protein Albumin Triglycerides HDL Cholesterol Miscellaneous Test Crossmatch 09/06/17 09/06/17 09/06/17 09:57 10:19 10:57 WBC RBC Hgb Hct MCV MCH RDW Plt Count Lymph % (Auto) [place] % (Auto) [place] # Seg Neutrophils % Seg Neuts % (Manual) Lymphocytes % (Manual) Monocytes % (Manual) Nucleated RBC % Seg Neutrophils # Seg Neutrophils # Man Lymphocytes # (Manual) Monocytes # (Manual) Eosinophils # (Manual) Basophils # (Manual) PT INR POC ABG pH ABG pH POC ABG pCO2 POC ABG pO2 ABG pO2 ABG O2 Saturation ABG Base Excess ABG Hemoglobin Oxyhemoglobin Sodium Potassium Chloride Carbon Dioxide BUN Creatinine Glucose POC Glucose 186 H 162 H Calcium Phosphorus Magnesium AST ALT Alkaline Phosphatase Troponin T C-Reactive Protein Total Protein Albumin Triglycerides HDL Cholesterol Miscellaneous Test Flexitest 1 H Crossmatch 09/06/17 09/06/17 09/06/17 13:12 13:40 17:36 WBC RBC Hgb 8.9 L Hct 28.5 L MCV MCH RDW Plt Count Lymph % (Auto) [place] % (Auto) [place] # Seg Neutrophils % Seg Neuts % (Manual) Lymphocytes % (Manual) Monocytes % (Manual) Nucleated RBC % Seg Neutrophils # Seg Neutrophils # Man Lymphocytes # (Manual) Monocytes # (Manual) Eosinophils # (Manual) Basophils # (Manual) PT INR POC ABG pH ABG pH POC ABG pCO2 POC ABG pO2 ABG pO2 ABG O2 Saturation ABG Base Excess ABG Hemoglobin Oxyhemoglobin Sodium Potassium Chloride Carbon Dioxide BUN Creatinine Glucose POC Glucose 166 H 161 H Calcium Phosphorus Magnesium AST ALT Alkaline Phosphatase Troponin T C-Reactive Protein Total Protein Albumin Triglycerides HDL Cholesterol Miscellaneous Test Crossmatch 09/07/17 09/07/17 09/07/17 00:13 03:50 03:50 WBC 47.0 H* RBC 2.81 L Hgb 8.1 L Hct 24.1 L MCV MCH RDW 22.5 H Plt Count Lymph % (Auto) [place] % (Auto) [place] # Seg Neutrophils % Seg Neuts % (Manual) Lymphocytes % (Manual) 9.0 L Monocytes % (Manual) Nucleated RBC % 6.0 H Seg Neutrophils # Seg Neutrophils # Man 27.3 H Lymphocytes # (Manual) Monocytes # (Manual) 0.9 H Eosinophils # (Manual) 1.9 H Basophils # (Manual) PT INR POC ABG pH ABG pH POC ABG pCO2 POC ABG pO2 ABG pO2 ABG O2 Saturation ABG Base Excess ABG Hemoglobin Oxyhemoglobin Sodium 136 L Potassium Chloride 96.3 L Carbon Dioxide BUN 61 H Creatinine 1.7 H Glucose 132 H POC Glucose 183 H Calcium 7.8 L Phosphorus Magnesium AST ALT Alkaline Phosphatase Troponin T C-Reactive Protein Total Protein Albumin Triglycerides HDL Cholesterol Miscellaneous Test Crossmatch 09/07/17 09/07/17 09/07/17 05:12 05:23 11:48 WBC RBC Hgb Hct MCV MCH RDW Plt Count Lymph % (Auto) [place] % (Auto) [place] # Seg Neutrophils % Seg Neuts % (Manual) Lymphocytes % (Manual) Monocytes % (Manual) Nucleated RBC % Seg Neutrophils # Seg Neutrophils # Man Lymphocytes # (Manual) Monocytes # (Manual) Eosinophils # (Manual) Basophils # (Manual) PT INR POC ABG pH ABG pH POC ABG pCO2 POC ABG pO2 ABG pO2 ABG O2 Saturation ABG Base Excess ABG Hemoglobin 7.7 L Oxyhemoglobin 94.8 L Sodium Potassium Chloride Carbon Dioxide BUN Creatinine Glucose POC Glucose 162 H 200 H Calcium Phosphorus Magnesium AST ALT Alkaline Phosphatase Troponin T C-Reactive Protein Total Protein Albumin Triglycerides HDL Cholesterol Miscellaneous Test Crossmatch 09/07/17 09/07/17 09/08/17 17:07 18:21 00:06 WBC RBC Hgb Hct MCV MCH RDW Plt Count Lymph % (Auto) [place] % (Auto) [place] # Seg Neutrophils % Seg Neuts % (Manual) Lymphocytes % (Manual) Monocytes % (Manual) Nucleated RBC % Seg Neutrophils # Seg Neutrophils # Man Lymphocytes # (Manual) Monocytes # (Manual) Eosinophils # (Manual) Basophils # (Manual) PT INR POC ABG pH ABG pH POC ABG pCO2 POC ABG pO2 ABG pO2 ABG O2 Saturation ABG Base Excess ABG Hemoglobin Oxyhemoglobin Sodium Potassium Chloride Carbon Dioxide BUN Creatinine Glucose POC Glucose 181 H 168 H Calcium Phosphorus Magnesium AST ALT Alkaline Phosphatase Troponin T C-Reactive Protein Total Protein Albumin Triglycerides HDL Cholesterol Miscellaneous Test Crossmatch See Detail 09/08/17 09/08/17 09/08/17 04:05 04:05 04:41 WBC 49.7 H* RBC 2.58 L Hgb 7.3 L Hct 22.7 L MCV MCH RDW 22.5 H Plt Count Lymph % (Auto) [place] % (Auto) [place] # Seg Neutrophils % Seg Neuts % (Manual) 90.5 H Lymphocytes % (Manual) 1.5 L Monocytes % (Manual) Nucleated RBC % Seg Neutrophils # Seg Neutrophils # Man 45.0 H Lymphocytes # (Manual) 0.7 L Monocytes # (Manual) 1.7 H Eosinophils # (Manual) Basophils # (Manual) PT INR POC ABG pH ABG pH POC ABG pCO2 POC ABG pO2 ABG pO2 ABG O2 Saturation ABG Base Excess ABG Hemoglobin Oxyhemoglobin Sodium 132 L Potassium Chloride 92.1 L Carbon Dioxide BUN 82 H Creatinine 2.2 H Glucose 162 H POC Glucose 235 H Calcium 8.3 L Phosphorus 5.20 H D Magnesium AST ALT Alkaline Phosphatase 199 H Troponin T C-Reactive Protein Total Protein 4.5 L Albumin 1.7 L Triglycerides HDL Cholesterol Miscellaneous Test Crossmatch 09/08/17 09/08/17 09/08/17 09:21 11:52 17:38 WBC RBC Hgb Hct MCV MCH RDW Plt Count Lymph % (Auto) [place] % (Auto) [place] # Seg Neutrophils % Seg Neuts % (Manual) Lymphocytes % (Manual) Monocytes % (Manual) Nucleated RBC % Seg Neutrophils # Seg Neutrophils # Man Lymphocytes # (Manual) Monocytes # (Manual) Eosinophils # (Manual) Basophils # (Manual) PT INR POC ABG pH ABG pH POC ABG pCO2 POC ABG pO2 ABG pO2 218.5 H ABG O2 Saturation 99.3 H ABG Base Excess -3.5 L ABG Hemoglobin 7.7 L Oxyhemoglobin Sodium Potassium Chloride Carbon Dioxide BUN Creatinine Glucose POC Glucose 220 H 194 H Calcium Phosphorus Magnesium AST ALT Alkaline Phosphatase Troponin T C-Reactive Protein Total Protein Albumin Triglycerides HDL Cholesterol Miscellaneous Test Crossmatch 09/09/17 09/09/17 09/09/17 00:24 03:37 03:37 WBC 33.5 H RBC 2.36 L Hgb 6.7 L Hct 20.9 L MCV MCH RDW 22.7 H Plt Count Lymph % (Auto) [place] % (Auto) [place] # Seg Neutrophils % Seg Neuts % (Manual) Lymphocytes % (Manual) Monocytes % (Manual) Nucleated RBC % Seg Neutrophils # Seg Neutrophils # Man Lymphocytes # (Manual) Monocytes # (Manual) Eosinophils # (Manual) Basophils # (Manual) PT INR POC ABG pH ABG pH POC ABG pCO2 POC ABG pO2 ABG pO2 ABG O2 Saturation ABG Base Excess ABG Hemoglobin Oxyhemoglobin Sodium 132 L Potassium Chloride 91.6 L Carbon Dioxide 21 L BUN 101 H Creatinine 2.6 H Glucose 156 H POC Glucose 182 H Calcium 8.3 L Phosphorus 5.90 H Magnesium 2.60 H AST ALT Alkaline Phosphatase Troponin T C-Reactive Protein Total Protein Albumin Triglycerides HDL Cholesterol Miscellaneous Test Crossmatch 09/09/17 09/09/17 09/09/17 05:29 12:03 18:05 WBC RBC Hgb Hct MCV MCH RDW Plt Count Lymph % (Auto) [place] % (Auto) [place] # Seg Neutrophils % Seg Neuts % (Manual) Lymphocytes % (Manual) Monocytes % (Manual) Nucleated RBC % Seg Neutrophils # Seg Neutrophils # Man Lymphocytes # (Manual) Monocytes # (Manual) Eosinophils # (Manual) Basophils # (Manual) PT INR POC ABG pH ABG pH POC ABG pCO2 POC ABG pO2 ABG pO2 ABG O2 Saturation ABG Base Excess ABG Hemoglobin Oxyhemoglobin Sodium Potassium Chloride Carbon Dioxide BUN Creatinine Glucose POC Glucose 168 H 143 H 173 H Calcium Phosphorus Magnesium AST ALT Alkaline Phosphatase Troponin T C-Reactive Protein Total Protein Albumin Triglycerides HDL Cholesterol Miscellaneous Test Crossmatch 09/09/17 09/09/17 09/10/17 23:30 Unknown 05:04 WBC RBC Hgb Hct MCV MCH RDW Plt Count Lymph % (Auto) [place] % (Auto) [place] # Seg Neutrophils % Seg Neuts % (Manual) Lymphocytes % (Manual) Monocytes % (Manual) Nucleated RBC % Seg Neutrophils # Seg Neutrophils # Man Lymphocytes # (Manual) Monocytes # (Manual) Eosinophils # (Manual) Basophils # (Manual) PT INR POC ABG pH ABG pH 7.323 L POC ABG pCO2 POC ABG pO2 ABG pO2 94.1 H ABG O2 Saturation ABG Base Excess -4.8 L ABG Hemoglobin 8.0 L Oxyhemoglobin 94.9 L Sodium Potassium Chloride Carbon Dioxide BUN Creatinine Glucose POC Glucose 212 H 155 H Calcium Phosphorus Magnesium AST ALT Alkaline Phosphatase Troponin T C-Reactive Protein Total Protein Albumin Triglycerides HDL Cholesterol Miscellaneous Test Crossmatch 09/10/17 09/10/17 09/10/17 07:00 09:55 12:22 WBC 24.7 H RBC 2.62 L Hgb 7.5 L Hct 22.5 L MCV MCH RDW 20.8 H Plt Count Lymph % (Auto) [place] % (Auto) [place] # Seg Neutrophils % Seg Neuts % (Manual) Lymphocytes % (Manual) Monocytes % (Manual) Nucleated RBC % Seg Neutrophils # Seg Neutrophils # Man Lymphocytes # (Manual) Monocytes # (Manual) Eosinophils # (Manual) Basophils # (Manual) PT INR POC ABG pH ABG pH POC ABG pCO2 POC ABG pO2 ABG pO2 ABG O2 Saturation ABG Base Excess ABG Hemoglobin Oxyhemoglobin Sodium Potassium Chloride 97.9 L Carbon Dioxide BUN 78 H Creatinine 2.0 H Glucose 126 H POC Glucose 183 H Calcium 8.2 L Phosphorus Magnesium AST ALT Alkaline Phosphatase Troponin T C-Reactive Protein Total Protein Albumin Triglycerides HDL Cholesterol Miscellaneous Test Crossmatch 09/11/17 09/11/17 09/11/17 00:08 03:50 05:28 WBC 21.6 H RBC 2.52 L Hgb 7.4 L Hct 22.2 L MCV MCH RDW 21.5 H Plt Count Lymph % (Auto) [place] % (Auto) [place] # Seg Neutrophils % Seg Neuts % (Manual) 92.0 H Lymphocytes % (Manual) 3.0 L Monocytes % (Manual) Nucleated RBC % Seg Neutrophils # Seg Neutrophils # Man 19.9 H Lymphocytes # (Manual) 0.6 L Monocytes # (Manual) Eosinophils # (Manual) Basophils # (Manual) PT INR POC ABG pH ABG pH POC ABG pCO2 POC ABG pO2 ABG pO2 ABG O2 Saturation ABG Base Excess ABG Hemoglobin Oxyhemoglobin Sodium Potassium Chloride Carbon Dioxide BUN Creatinine Glucose POC Glucose 213 H 181 H Calcium Phosphorus Magnesium AST ALT Alkaline Phosphatase Troponin T C-Reactive Protein Total Protein Albumin Triglycerides HDL Cholesterol Miscellaneous Test Crossmatch Chest x-ray: report reviewed
[2017-09-11] MEDS ORDERED: METHYLENE BLUE IRRIGATION ONE (14:00)
[2017-09-11] MEDS: MYCAMINE 100 MG in NACL 0.9% 100 ML IV SCH (14:00)
--- NOTE | 2017-09-11 14:30 | Progress Note ---
Assessment and Plan - Patient Problems (1) ESRD (end stage renal disease) on dialysis Current Visit: Yes Status: Acute Plan to address problem: Continue HD on MWF and Isolated UF on TTS as tolerated. Had UF yesterday. HD today. Patient is on TPN. (2) Hyperkalemia Current Visit: Yes Status: Acute Plan to address problem: Improved. (3) Anemia Current Visit: No Status: Chronic Qualifiers: Anemia type: due to chronic kidney disease Iron deficiency anemia type: I Vitamin B12 deficiency anemia type: V Folate deficiency anemia type: F Bone marrow failure anemia type: B Hemolytic anemia type: H Other causes of anemia: O Chronic kidney disease stage: on chronic dialysis Qualified Code(s ): N18.6 - End stage renal disease; D63.1 - Anemia in chronic kidney disease; Z99.2 - Dependence on renal dialysis Plan to address problem: S/p multiple units of PRBC. Epogen on dialysis days. (4) Hypotension Current Visit: Yes Status: Chronic Qualifiers: Hypotension type: H Trimester: T Plan to address problem: On Levophed. (5) Volume overload Current Visit: Yes Status: Acute Qualifiers: Hypervolemia type: H Plan to address problem: UF as tolerated. (6) Leukocytosis Current Visit: Yes Status: Acute Qualifiers: Leukocytosis type: unspecified Qualified Code(s): D72.829 - Elevated white blood cell count, unspecified Plan to address problem: Followed by ID and Heme-Onc. (7) Acute respiratory failure with hypoxemia Current Visit: Yes Status: Acute Plan to address problem: On the vent. (8) Sepsis Current Visit: Yes Status: Acute Qualifiers: Sepsis type: S Subjective Date of service: 09/11/17 Principal diagnosis: respiratory failure, sepsis, shock rectal bleeding Interval history: Patient was seen and examined at the bedside. Objective - Vital Signs Vital signs: Vital Signs - 12hr 09/11/17 09/11/17 09/11/17 02:30 02:34 02:46 Temperature Pulse Rate 107 H 106 H Pulse Rate [ 108 H Anterior Bilateral Throughout] Respiratory 20 20 Rate Respiratory 22 Rate [Anterior Bilateral Throughout] Blood Pressure 108/60 84/59 O2 Sat by Pulse 100 100 Oximetry O2 Sat by Pulse Oximetry [ Assessment] 09/11/17 09/11/17 09/11/17 02:49 03:00 03:15 Temperature Pulse Rate 109 H 101 H Pulse Rate [ 11 L Anterior Bilateral Throughout] Respiratory 18 20 Rate Respiratory 22 Rate [Anterior Bilateral Throughout] Blood Pressure 84/59 112/50 O2 Sat by Pulse 100 100 Oximetry O2 Sat by Pulse Oximetry [ Assessment] 09/11/17 09/11/17 09/11/17 03:30 03:45 03:52 Temperature 99.5 F Pulse Rate 103 H 104 H Pulse Rate [ Anterior Bilateral Throughout] Respiratory 19 21 Rate Respiratory Rate [Anterior Bilateral Throughout] Blood Pressure 112/50 104/49 O2 Sat by Pulse 100 100 Oximetry O2 Sat by Pulse Oximetry [ Assessment] 09/11/17 09/11/17 09/11/17 04:00 04:15 04:30 Temperature Pulse Rate 102 H 102 H 103 H Pulse Rate [ Anterior Bilateral Throughout] Respiratory 20 21 20 Rate Respiratory Rate [Anterior Bilateral Throughout] Blood Pressure 113/51 111/47 109/48 O2 Sat by Pulse 100 100 100 Oximetry O2 Sat by Pulse Oximetry [ Assessment] 09/11/17 09/11/17 09/11/17 04:46 05:00 05:15 Temperature Pulse Rate 105 H 102 H 102 H Pulse Rate [ Anterior Bilateral Throughout] Respiratory 21 20 20 Rate Respiratory Rate [Anterior Bilateral Throughout] Blood Pressure 62/35 85/33 112/54 O2 Sat by Pulse 100 100 100 Oximetry O2 Sat by Pulse Oximetry [ Assessment] 09/11/17 09/11/17 09/11/17 05:30 05:46 06:00 Temperature Pulse Rate 101 H 103 H 99 H Pulse Rate [ Anterior Bilateral Throughout] Respiratory 10 L 14 20 Rate Respiratory Rate [Anterior Bilateral Throughout] Blood Pressure 116/57 85/33 124/54 O2 Sat by Pulse 100 100 100 Oximetry O2 Sat by Pulse Oximetry [ Assessment] 09/11/17 09/11/17 09/11/17 06:15 06:30 06:46 Temperature Pulse Rate 102 H 103 H 104 H Pulse Rate [ Anterior Bilateral Throughout] Respiratory 17 15 18 Rate Respiratory Rate [Anterior Bilateral Throughout] Blood Pressure 117/53 109/61 115/73 O2 Sat by Pulse 100 100 100 Oximetry O2 Sat by Pulse Oximetry [ Assessment] 09/11/17 09/11/17 09/11/17 07:00 07:15 07:30 Temperature Pulse Rate 102 H 103 H 100 H Pulse Rate [ Anterior Bilateral Throughout] Respiratory 22 20 13 Rate Respiratory Rate [Anterior Bilateral Throughout] Blood Pressure 116/65 115/56 118/54 O2 Sat by Pulse 100 100 100 Oximetry O2 Sat by Pulse Oximetry [ Assessment] 09/11/17 09/11/17 09/11/17 07:44 07:45 08:00 Temperature 98.6 F Pulse Rate 100 H 100 H Pulse Rate [ 99 H 98 H Anterior Bilateral Throughout] Respiratory 20 21 Rate Respiratory 20 20 Rate [Anterior Bilateral Throughout] Blood Pressure 119/56 120/56 O2 Sat by Pulse 100 100 Oximetry O2 Sat by Pulse 100 Oximetry [ Assessment] 09/11/17 09/11/17 09/11/17 08:15 08:30 08:46 Temperature Pulse Rate 99 H 99 H 103 H Pulse Rate [ Anterior Bilateral Throughout] Respiratory 19 20 18 Rate Respiratory Rate [Anterior Bilateral Throughout] Blood Pressure 115/58 100/47 100/47 O2 Sat by Pulse 100 100 100 Oximetry O2 Sat by Pulse Oximetry [ Assessment] 09/11/17 09/11/17 09/11/17 09:00 09:16 09:30 Temperature Pulse Rate 106 H 97 H 96 H Pulse Rate [ Anterior Bilateral Throughout] Respiratory 18 20 17 Rate Respiratory Rate [Anterior Bilateral Throughout] Blood Pressure 94/46 110/48 116/60 O2 Sat by Pulse 100 100 100 Oximetry O2 Sat by Pulse Oximetry [ Assessment] 09/11/17 09/11/17 09/11/17 09:46 10:00 10:15 Temperature Pulse Rate 104 H 107 H 102 H Pulse Rate [ Anterior Bilateral Throughout] Respiratory 18 14 11 L Rate Respiratory Rate [Anterior Bilateral Throughout] Blood Pressure 116/60 121/52 122/61 O2 Sat by Pulse 100 100 100 Oximetry O2 Sat by Pulse Oximetry [ Assessment] 09/11/17 09/11/17 09/11/17 10:30 10:46 11:38 Temperature Pulse Rate 103 H 108 H 108 H Pulse Rate [ Anterior Bilateral Throughout] Respiratory 17 16 Rate Respiratory Rate [Anterior Bilateral Throughout] Blood Pressure 127/62 127/62 127/62 O2 Sat by Pulse 100 100 100 Oximetry O2 Sat by Pulse Oximetry [ Assessment] 09/11/17 09/11/17 12:00 14:12 Temperature 98.8 F Pulse Rate Pulse Rate [ 111 H Anterior Bilateral Throughout] Respiratory Rate Respiratory 20 Rate [Anterior Bilateral Throughout] Blood Pressure O2 Sat by Pulse Oximetry O2 Sat by Pulse Oximetry [ Assessment] - General Appearance General appearance: well-developed, appears stated age, obese, other (trached, on vent FiO2 30%, right IJ temp catheter) EENT: ATNC, PERRL Neck: other (trached) Respiratory: Present: Clear to Ascultation Cardiology: regular, S1S2, no murmurs Gastrointestinal: normoactive bowel sounds, no tenderness, obese, other (PEG tube noted) Integumentary: no rash Neurologic: other (alert, grimaces with pressure) Musculoskeletal: other (2+ edema of both LEs noted) - Lab 09/11/17 03:50 09/10/17 07:00 Most recent lab results ABG pH 7.323 pH Units (7.350-7.450) L 09/09/17 Unknown ABG pCO2 41.1 mm Hg 09/09/17 Unknown ABG pO2 94.1 mm Hg (80.0-90.0) H 09/09/17 Unknown ABG HCO3 20.9 mmol/L (20.0-26.0) 09/09/17 Unknown ABG O2 Saturation 97.2 % (95.0-99.0) 09/09/17 Unknown Calcium 8.2 mg/dL (8.4-10.2) L 09/10/17 07:00 Phosphorus 4.00 mg/dL (2.5-4.5) D 09/10/17 07:00 Magnesium 2.30 mg/dL (1.7-2.3) 09/10/17 07:00
[2017-09-11] MEDS ORDERED: NACL 0.9% 500 ML 500 ML IV ONE (15:37)
--- NOTE | 2017-09-11 16:47 | Progress Note ---
Assessment and Plan - Patient Problems (1) Peritonitis (acute) generalized Current Visit: Yes Status: Acute Plan to address problem: 62 y.o. F s/p ex lap, abdominal wash out and abdominal wall closure after wound dehiscence 2 weeks s/p ex lap for gastric perforation and sbo. Sepsis: Pt requiring levo, vaso added. Steroids off . Source of sepsis unknown. Recent CT abd pelvis does not show any collections. Rec. follow blood cultures. F/u cultures. -Wound care following wounds on legs/sacrum -leukocytosis improving - ID following VDRF: s/p trach. GI bleed-resolved: Pt started to have melena now resolved. The source is likely lower GI since G tube has remained bilious. If bleeding continues rec bleeding scan for possible source. Prev Gastric perf: Leak test today via NG tube and methylene blue. No blue noted in MERVIN. Keep NG clamped and G tube clamped. Will check residual of G tube drainage in the AM. If output <400, would rec trickle feeds however she is now on vaso. Will assess pt in the morning. Nutrition: TPN at 75- replace G tube losses though she is renal? Renal to manage fluids. DVT proph: scds hold hep with GI bleed. GI: PPI. Subjective Narrative: Pt started on 2nd pressor yesterday. She is awake but does not follow commands or speak. 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) G tube: 460 cc bilious Objective Vital Signs - 12hr 09/11/17 09/11/17 09/11/17 04:46 05:00 05:15 Temperature Pulse Rate 105 H 102 H 102 H Pulse Rate [ Anterior Bilateral Throughout] Respiratory 21 20 20 Rate Respiratory Rate [Anterior Bilateral Throughout] Blood Pressure 62/35 85/33 112/54 O2 Sat by Pulse 100 100 100 Oximetry O2 Sat by Pulse Oximetry [ Assessment] 09/11/17 09/11/17 09/11/17 05:30 05:46 06:00 Temperature Pulse Rate 101 H 103 H 99 H Pulse Rate [ Anterior Bilateral Throughout] Respiratory 10 L 14 20 Rate Respiratory Rate [Anterior Bilateral Throughout] Blood Pressure 116/57 85/33 124/54 O2 Sat by Pulse 100 100 100 Oximetry O2 Sat by Pulse Oximetry [ Assessment] 09/11/17 09/11/17 09/11/17 06:15 06:30 06:46 Temperature Pulse Rate 102 H 103 H 104 H Pulse Rate [ Anterior Bilateral Throughout] Respiratory 17 15 18 Rate Respiratory Rate [Anterior Bilateral Throughout] Blood Pressure 117/53 109/61 115/73 O2 Sat by Pulse 100 100 100 Oximetry O2 Sat by Pulse Oximetry [ Assessment] 09/11/17 09/11/17 09/11/17 07:00 07:15 07:30 Temperature Pulse Rate 102 H 103 H 100 H Pulse Rate [ Anterior Bilateral Throughout] Respiratory 22 20 13 Rate Respiratory Rate [Anterior Bilateral Throughout] Blood Pressure 116/65 115/56 118/54 O2 Sat by Pulse 100 100 100 Oximetry O2 Sat by Pulse Oximetry [ Assessment] 09/11/17 09/11/17 09/11/17 07:44 07:45 08:00 Temperature 98.6 F Pulse Rate 100 H 100 H Pulse Rate [ 99 H 98 H Anterior Bilateral Throughout] Respiratory 20 21 Rate Respiratory 20 20 Rate [Anterior Bilateral Throughout] Blood Pressure 119/56 120/56 O2 Sat by Pulse 100 100 Oximetry O2 Sat by Pulse 100 Oximetry [ Assessment] 09/11/17 09/11/17 09/11/17 08:15 08:30 08:46 Temperature Pulse Rate 99 H 99 H 103 H Pulse Rate [ Anterior Bilateral Throughout] Respiratory 19 20 18 Rate Respiratory Rate [Anterior Bilateral Throughout] Blood Pressure 115/58 100/47 100/47 O2 Sat by Pulse 100 100 100 Oximetry O2 Sat by Pulse Oximetry [ Assessment] 09/11/17 09/11/17 09/11/17 09:00 09:16 09:30 Temperature Pulse Rate 106 H 97 H 96 H Pulse Rate [ Anterior Bilateral Throughout] Respiratory 18 20 17 Rate Respiratory Rate [Anterior Bilateral Throughout] Blood Pressure 94/46 110/48 116/60 O2 Sat by Pulse 100 100 100 Oximetry O2 Sat by Pulse Oximetry [ Assessment] 09/11/17 09/11/17 09/11/17 09:46 10:00 10:15 Temperature Pulse Rate 104 H 107 H 102 H Pulse Rate [ Anterior Bilateral Throughout] Respiratory 18 14 11 L Rate Respiratory Rate [Anterior Bilateral Throughout] Blood Pressure 116/60 121/52 122/61 O2 Sat by Pulse 100 100 100 Oximetry O2 Sat by Pulse Oximetry [ Assessment] 09/11/17 09/11/17 09/11/17 10:30 10:46 11:38 Temperature Pulse Rate 103 H 108 H 108 H Pulse Rate [ Anterior Bilateral Throughout] Respiratory 17 16 Rate Respiratory Rate [Anterior Bilateral Throughout] Blood Pressure 127/62 127/62 127/62 O2 Sat by Pulse 100 100 100 Oximetry O2 Sat by Pulse Oximetry [ Assessment] 09/11/17 09/11/17 09/11/17 12:00 14:12 14:28 Temperature 98.8 F Pulse Rate Pulse Rate [ 111 H 108 H Anterior Bilateral Throughout] Respiratory Rate Respiratory 20 20 Rate [Anterior Bilateral Throughout] Blood Pressure O2 Sat by Pulse Oximetry O2 Sat by Pulse Oximetry [ Assessment] 09/11/17 09/11/17 16:00 16:30 Temperature Pulse Rate 102 H Pulse Rate [ Anterior Bilateral Throughout] Respiratory Rate Respiratory Rate [Anterior Bilateral Throughout] Blood Pressure 130/52 O2 Sat by Pulse 100 Oximetry O2 Sat by Pulse 99 Oximetry [ Assessment] - General physical appearance no pain, obese - ENT other (trach in place. NG ) - Respiratory normal expansion, other (vent) - Abdomen soft, other (dressing saturated with serosang fluid. Packign removed from midline- minimal clot at superior portion. midline: serousang drainage. irrigated then repacked with kerlex and 4x4s. MERVIN and G tube in place. Prev PD cath site: clean. lightly repacked with 4x4. ) - Neurologic confused - Musculoskeletal other (+3 edema upper and lower extremities ) - Labs 09/11/17 03:50 09/10/17 07:00
[2017-09-11] MEDS ORDERED: WATER FOR INJ (PF) 10 ML ONE (17:53)
[2017-09-11] MEDS ORDERED: TPN ADULT 1,800 ML IV SCH (20:00)
[2017-09-11] MEDS ORDERED: INTRALIPID 20% 250 ML IV SCH (20:00)
[2017-09-11] MEDS: CATHFLO IV PRN (20:09)
--- NOTE | 2017-09-11 22:18 | Progress Note ---
Assessment and Plan - Patient Problems (1) Leukocytosis Current Visit: Yes Status: Acute Qualifiers: Leukocytosis type: L Plan to address problem: See notes above. make sure that PD access is clean also. see notes. Probably infection from the infected PD catheter. improving. back up again. up/down continue to monitor. it continuos to rise. still high. improved. (2) Anemia Current Visit: Yes Status: Acute Qualifiers: Anemia type: A Iron deficiency anemia type: I Vitamin B12 deficiency anemia type: V Folate deficiency anemia type: F Bone marrow failure anemia type: B Hemolytic anemia type: H Other causes of anemia: O Chronic kidney disease stage: C Plan to address problem: see notes , monitor labs,. see notes above. continue to monitor labs with you. blood transfusion. S/P replacement transfusion. fair. s/p 1unit transfusion. see notes. Still at 7.4 (3) Acute respiratory failure Current Visit: Yes Status: Acute Qualifiers: Respiratory failure complication: R Plan to address problem: follow pulm. Subjective Date of service: 09/11/17 Principal diagnosis: respiratory failure, sepsis, shock rectal bleeding Interval history: Patient seen today/examined, labs reviewed, case d/w she, and family.complaints of abdominal pain. Patient resting in bed in the ICU, post vascular procedure. labs reviewed, Reactive thrombocytosis, anemia of CD, leukocytosis from infection vs inflamatory process. Patient seen/examined, in bed in the ICU, on the vent post surgery.Labs reviewed , notes reviewed. will continue to monitor labs/patient with you. Replacement transfusion, if /when indicated. patient seen/examined, SBP75, on pressors., lethargic, on the vent, labs reviewed, wbc 39,000 Patient seen/examined, case reviewed, d/w her sister at the bed side. Patient seen/examined, labs reviewed, notes reviewed. severe septic shock from infected PD catheter The high wbc is all infection related. H?H low, and may get replacement transfusion with the next HD. Prognosis remain quite poor. Patient seen/examined, extubated, now on V Mask. labs reviewed. patient seen/examined, resting in bed, still some what lethargic . labs reviewed. Patient seen/examined, resting in bed., some difficulty with breathing./ lethargic. patient seen/examined, resting in bed, looked much better labs reviewed, and fair over all. Patient seen/examined, resting in bed, labs reviewed, case d/w her. Patient seen/examined, resting in bed on BIPAP., labs reviewed. patient seen/examined, resting in bed, on Bipap.labs reviewed, fairly stable. Patient seen today, resting in bed, labs reviewed, H/H low, and transfusion already ordered. Patient seen/examined, resting in bed, transferred back to the unit, due to resp failure. She is now on venting mask. had blood replacement done. Patient seen/examined in the ICU.labs reviewed. patient intubated this am. patient resting in bed.no new issues. Patient seen/examined in the ICU, on vent,Not readily responsive. patient seen, resting in bed, no new cbc ready.will order for today. Patient seen, resting in vent, labs reviewed.notes reviewed also. patient seen/examined, resting on vent, had HD yesterday, and today., labs reviewed. Patient seen, resting in bed, labs reviewed.fairly stable labs, except the wbc. Patient seen/examined, rtesting in bed on the vent.Labs reviewed, wbc still elevated, Hgb dropped slightly. Patient seen/examined, labs reviewed, hgb 7.3, if 7.0 or less, will replace .unless otherwise indicated. Patient seen/examined, alert but lethargic.sedation drip turned down.she is s/p 1unit PRBC replacement with HD today. Patient seen/examined, labs reviewed, hgb still not quite enough at 7.5, perhaps with the next HD,can use 1-2 units. Patient seen/examined, resting in bed, trached, labs re viewed. Objective - Constitutional Vitals: Vital Signs - 12hr 09/11/17 09/11/17 09/11/17 10:30 10:46 11:00 Temperature Pulse Rate 103 H 108 H 105 H Pulse Rate [ Anterior Bilateral Throughout] Respiratory 17 16 21 Rate Respiratory Rate [Anterior Bilateral Throughout] Blood Pressure 127/62 127/62 122/63 O2 Sat by Pulse 100 100 100 Oximetry O2 Sat by Pulse Oximetry [ Anterior Bilateral Throughout] O2 Sat by Pulse Oximetry [ Assessment] 09/11/17 09/11/17 09/11/17 11:15 11:30 11:38 Temperature Pulse Rate 106 H 109 H 108 H Pulse Rate [ Anterior Bilateral Throughout] Respiratory 13 13 Rate Respiratory Rate [Anterior Bilateral Throughout] Blood Pressure 133/55 137/53 127/62 O2 Sat by Pulse 100 100 100 Oximetry O2 Sat by Pulse Oximetry [ Anterior Bilateral Throughout] O2 Sat by Pulse Oximetry [ Assessment] 09/11/17 09/11/17 09/11/17 11:45 12:00 12:15 Temperature 98.8 F Pulse Rate 105 H 105 H 106 H Pulse Rate [ Anterior Bilateral Throughout] Respiratory 15 20 21 Rate Respiratory Rate [Anterior Bilateral Throughout] Blood Pressure 138/57 119/56 123/61 O2 Sat by Pulse 100 100 100 Oximetry O2 Sat by Pulse Oximetry [ Anterior Bilateral Throughout] O2 Sat by Pulse Oximetry [ Assessment] 09/11/17 09/11/17 09/11/17 12:30 12:46 13:00 Temperature Pulse Rate 109 H 106 H 103 H Pulse Rate [ Anterior Bilateral Throughout] Respiratory 14 17 20 Rate Respiratory Rate [Anterior Bilateral Throughout] Blood Pressure 123/61 128/44 128/63 O2 Sat by Pulse 100 100 100 Oximetry O2 Sat by Pulse Oximetry [ Anterior Bilateral Throughout] O2 Sat by Pulse Oximetry [ Assessment] 09/11/17 09/11/17 09/11/17 13:16 13:30 13:45 Temperature Pulse Rate 104 H 102 H 99 H Pulse Rate [ Anterior Bilateral Throughout] Respiratory 12 20 21 Rate Respiratory Rate [Anterior Bilateral Throughout] Blood Pressure 138/60 137/59 130/59 O2 Sat by Pulse 100 100 100 Oximetry O2 Sat by Pulse Oximetry [ Anterior Bilateral Throughout] O2 Sat by Pulse Oximetry [ Assessment] 09/11/17 09/11/17 09/11/17 14:00 14:12 14:16 Temperature Pulse Rate 104 H 98 H Pulse Rate [ 111 H Anterior Bilateral Throughout] Respiratory 17 23 Rate Respiratory 20 Rate [Anterior Bilateral Throughout] Blood Pressure 130/59 121/57 O2 Sat by Pulse 100 100 Oximetry O2 Sat by Pulse Oximetry [ Anterior Bilateral Throughout] O2 Sat by Pulse Oximetry [ Assessment] 09/11/17 09/11/17 09/11/17 14:28 14:30 14:45 Temperature Pulse Rate 102 H 101 H Pulse Rate [ 108 H Anterior Bilateral Throughout] Respiratory 20 17 Rate Respiratory 20 Rate [Anterior Bilateral Throughout] Blood Pressure 110/55 113/61 O2 Sat by Pulse 100 100 Oximetry O2 Sat by Pulse Oximetry [ Anterior Bilateral Throughout] O2 Sat by Pulse Oximetry [ Assessment] 09/11/17 09/11/17 09/11/17 15:00 15:15 15:30 Temperature Pulse Rate 104 H 101 H 104 H Pulse Rate [ Anterior Bilateral Throughout] Respiratory 15 20 18 Rate Respiratory Rate [Anterior Bilateral Throughout] Blood Pressure 113/61 121/54 113/55 O2 Sat by Pulse 100 100 100 Oximetry O2 Sat by Pulse Oximetry [ Anterior Bilateral Throughout] O2 Sat by Pulse Oximetry [ Assessment] 09/11/17 09/11/17 09/11/17 15:46 16:00 16:15 Temperature 98.3 F Pulse Rate 101 H 100 H 100 H Pulse Rate [ Anterior Bilateral Throughout] Respiratory 19 18 21 Rate Respiratory Rate [Anterior Bilateral Throughout] Blood Pressure 113/55 116/63 132/58 O2 Sat by Pulse 100 98 100 Oximetry O2 Sat by Pulse Oximetry [ Anterior Bilateral Throughout] O2 Sat by Pulse Oximetry [ Assessment] 09/11/17 09/11/17 09/11/17 16:30 16:45 17:00 Temperature 98.3 F Pulse Rate 99 H 99 H 104 H Pulse Rate [ Anterior Bilateral Throughout] Respiratory 24 20 19 Rate Respiratory Rate [Anterior Bilateral Throughout] Blood Pressure 133/60 120/59 120/59 O2 Sat by Pulse 100 100 100 Oximetry O2 Sat by Pulse 100 Oximetry [ Anterior Bilateral Throughout] O2 Sat by Pulse 99 Oximetry [ Assessment] 09/11/17 09/11/17 09/11/17 17:15 17:16 17:20 Temperature Pulse Rate 105 H 100 H 108 H Pulse Rate [ Anterior Bilateral Throughout] Respiratory 20 Rate Respiratory Rate [Anterior Bilateral Throughout] Blood Pressure 76/43 55/31 121/57 O2 Sat by Pulse 98 Oximetry O2 Sat by Pulse Oximetry [ Anterior Bilateral Throughout] O2 Sat by Pulse Oximetry [ Assessment] 09/11/17 09/11/17 09/11/17 17:30 17:45 17:46 Temperature Pulse Rate 105 H 106 H 106 H Pulse Rate [ Anterior Bilateral Throughout] Respiratory 22 20 Rate Respiratory Rate [Anterior Bilateral Throughout] Blood Pressure 121/57 124/64 124/64 O2 Sat by Pulse 100 100 Oximetry O2 Sat by Pulse Oximetry [ Anterior Bilateral Throughout] O2 Sat by Pulse Oximetry [ Assessment] 09/11/17 09/11/17 09/11/17 18:00 18:15 18:30 Temperature Pulse Rate 105 H 105 H 105 H Pulse Rate [ Anterior Bilateral Throughout] Respiratory 20 20 20 Rate Respiratory Rate [Anterior Bilateral Throughout] Blood Pressure 112/57 116/58 116/58 O2 Sat by Pulse 100 100 98 Oximetry O2 Sat by Pulse Oximetry [ Anterior Bilateral Throughout] O2 Sat by Pulse Oximetry [ Assessment] 09/11/17 09/11/17 09/11/17 18:36 18:45 19:00 Temperature Pulse Rate 105 H 108 H 103 H Pulse Rate [ Anterior Bilateral Throughout] Respiratory 21 22 Rate Respiratory Rate [Anterior Bilateral Throughout] Blood Pressure 95/54 97/48 116/58 O2 Sat by Pulse 97 100 Oximetry O2 Sat by Pulse Oximetry [ Anterior Bilateral Throughout] O2 Sat by Pulse Oximetry [ Assessment] 09/11/17 09/11/17 09/11/17 19:01 19:15 19:30 Temperature Pulse Rate 105 H 101 H 103 H Pulse Rate [ Anterior Bilateral Throughout] Respiratory 20 20 Rate Respiratory Rate [Anterior Bilateral Throughout] Blood Pressure 104/65 100/57 100/57 O2 Sat by Pulse 94 99 Oximetry O2 Sat by Pulse Oximetry [ Anterior Bilateral Throughout] O2 Sat by Pulse Oximetry [ Assessment] 09/11/17 09/11/17 09/11/17 19:32 19:45 19:46 Temperature Pulse Rate 103 H 99 H 99 H Pulse Rate [ Anterior Bilateral Throughout] Respiratory 20 Rate Respiratory Rate [Anterior Bilateral Throughout] Blood Pressure 76/49 106/54 106/54 O2 Sat by Pulse 100 Oximetry O2 Sat by Pulse Oximetry [ Anterior Bilateral Throughout] O2 Sat by Pulse Oximetry [ Assessment] 09/11/17 09/11/17 09/11/17 19:49 19:56 20:00 Temperature 99.0 F Pulse Rate 100 H 105 H Pulse Rate [ Anterior Bilateral Throughout] Respiratory 21 Rate Respiratory Rate [Anterior Bilateral Throughout] Blood Pressure 106/54 106/54 O2 Sat by Pulse 100 100 Oximetry O2 Sat by Pulse Oximetry [ Anterior Bilateral Throughout] O2 Sat by Pulse Oximetry [ Assessment] 09/11/17 20:03 Temperature 98.3 F Pulse Rate 102 H Pulse Rate [ Anterior Bilateral Throughout] Respiratory 20 Rate Respiratory Rate [Anterior Bilateral Throughout] Blood Pressure 116/56 O2 Sat by Pulse Oximetry O2 Sat by Pulse 100 Oximetry [ Anterior Bilateral Throughout] O2 Sat by Pulse Oximetry [ Assessment] General appearance: Present: mild distress - EENT Eyes: PERRL, EOM intact ENT: hearing intact, clear oral mucosa Ears: bilateral: normal - Neck Neck: supple, normal ROM - Respiratory Respiratory: bilateral: diminished (trached) - Breasts Breasts: deferred - Cardiovascular Rhythm: regular Heart Sounds: Present: S1 & S2. Absent: gallop, rub Extremities: pulses intact, No edema, normal color, Full ROM - Gastrointestinal General gastrointestinal: Present: soft, non-tender, non-distended, normal bowel sounds Rectal Exam: deferred - Genitourinary Female genitourinary: deferred - Integumentary Integumentary: clear, warm, dry - Musculoskeletal Musculoskeletal: 1, strength equal bilaterally - Neurologic Neurologic: moves all extremities - Psychiatric Psychiatric: appropriate mood/affect - Labs CBC & Chem 7: 09/11/17 03:50 09/10/17 07:00 Labs: Abnormal lab results 08/31/17 09/11/17 09/11/17 Range/Units 18:22 00:08 03:50 WBC 21.6 H (4.5-11.0) K/mm3 RBC 2.52 L (3.65-5.03) M/mm3 Hgb 7.4 L (10.1-14.3) gm/dl Hct 22.2 L (30.3-42.9) % RDW 21.5 H (13.2-15.2) % Seg Neuts % (Manual) 92.0 H (40.0-70.0) % Lymphocytes % (Manual) 3.0 L (13.4-35.0) % Seg Neutrophils # Man 19.9 H (1.8-7.7) K/mm3 Lymphocytes # (Manual) 0.6 L (1.2-5.4) K/mm3 POC Glucose 240 H 213 H (70-105) 09/11/17 09/11/17 Range/Units 05:28 11:55 WBC (4.5-11.0) K/mm3 RBC (3.65-5.03) M/mm3 Hgb (10.1-14.3) gm/dl Hct (30.3-42.9) % RDW (13.2-15.2) % Seg Neuts % (Manual) (40.0-70.0) % Lymphocytes % (Manual) (13.4-35.0) % Seg Neutrophils # Man (1.8-7.7) K/mm3 Lymphocytes # (Manual) (1.2-5.4) K/mm3 POC Glucose 181 H 277 H (70-105)
[2017-09-12 00:21] LABS: Chloride 98.1 mmol/L (98-107)
[2017-09-12] MEDS: NOVOLOG SUB-Q SCH ×4 (01:00→18:42)
[2017-09-12] MEDS: DUONEB *Not for PRN Use IH SCH ×5 (02:35→21:12)
[2017-09-12] MEDS: Vasostrict 20 UNIT in NACL 0.9% 100 ML IV SCH ×2 (05:44→17:45)
[2017-09-12] MEDS: LEVOPHED 8 MG in NACL 0.9% 250ML 242 ML IV SCH ×4 (05:45→20:58)
[2017-09-12 07:02] LABS: Hematocrit 20.4 % (30.3-42.9); Hemoglobin 6.7 gm/dl (10.1-14.3); Mean Corpuscular HGB Conc 33 % (30-34); Mean Corpuscular Hemoglobin 29 pg (28-32); Mean Corpuscular Volume 89 fl (79-97); Platelet Count 149 K/mm3 (140-440); Red Blood Count 2.29 M/mm3 (3.65-5.03); White Blood Count 17.4 K/mm3 (4.5-11.0)
[2017-09-12 07:08] LABS: Red Cell Distribution Width 21.2 % (13.2-15.2)
[2017-09-12 07:25] LABS: Iron 22 ug/dL (37-170); Total Iron Binding Capacity 81 mcg/dL (250-450)
[2017-09-12 08:00] LABS: Anisocytosis 1+; Basophils % (Manual) 0 % (0.0-1.8); Blastocytes % (Manual) 0 %; Macrocytosis Few; Polychromasia 1+; Spherocytes Rare
[2017-09-12 08:01] LABS: Diff Status Complete; Stomatocytes Rare
[2017-09-12] MEDS ORDERED: NACL 0.9% 500 ML 500 ML IV ONE (09:00)
[2017-09-12] MEDS: PROTONIX IV SCH (09:07)
[2017-09-12] MEDS: LEVEMIR SUB-Q SCH (09:07)
--- NOTE | 2017-09-12 09:16 | Progress Note ---
Assessment and Plan - Patient Problems (1) ESRD (end stage renal disease) on dialysis Current Visit: Yes Status: Acute Plan to address problem: Continue HD on MWF and Isolated UF on TTS as tolerated. Had HD yesterday. UF today. Patient is on TPN. (2) Hyperkalemia Current Visit: Yes Status: Acute Plan to address problem: Improved. (3) Anemia Current Visit: No Status: Chronic Qualifiers: Qualified Code(s): N18.6 - End stage renal disease; D63.1 - Anemia in chronic kidney disease; D63.1 - Anemia in chronic kidney disease; Z99.2 - Dependence on renal dialysis; Z99.2 - Dependence on renal dialysis; Z99.2 - Dependence on renal dialysis; Z99.2 - Dependence on renal dialysis Plan to address problem: S/p multiple units of PRBC. Epogen on dialysis days. (4) Hypotension Current Visit: Yes Status: Chronic Plan to address problem: On Levophed. (5) Volume overload Current Visit: Yes Status: Acute Plan to address problem: UF as tolerated. (6) Leukocytosis Current Visit: Yes Status: Acute Qualifiers: Qualified Code(s): D72.829 - Elevated white blood cell count, unspecified (7) Acute respiratory failure with hypoxemia Current Visit: Yes Status: Acute Plan to address problem: On the vent. (8) Sepsis Current Visit: Yes Status: Acute Subjective Date of service: 09/12/17 Principal diagnosis: respiratory failure, sepsis, shock rectal bleeding Interval history: Patient was seen and examined at the bedside. Objective - Vital Signs Vital signs: Vital Signs - 12hr 09/11/17 09/11/17 09/11/17 21:15 21:30 21:45 Temperature Pulse Rate 99 H 94 H 99 H Pulse Rate [ Anterior Bilateral Throughout] Respiratory 13 20 20 Rate Respiratory Rate [Anterior Bilateral Throughout] Blood Pressure 119/71 131/58 127/58 O2 Sat by Pulse 100 100 100 Oximetry 09/11/17 09/11/17 09/11/17 22:00 22:15 22:30 Temperature Pulse Rate 98 H 95 H 93 H Pulse Rate [ Anterior Bilateral Throughout] Respiratory 20 20 20 Rate Respiratory Rate [Anterior Bilateral Throughout] Blood Pressure 131/58 93/45 101/46 O2 Sat by Pulse 100 100 100 Oximetry 09/11/17 09/11/17 09/11/17 22:45 23:00 23:08 Temperature Pulse Rate 95 H 93 H 93 H Pulse Rate [ Anterior Bilateral Throughout] Respiratory 20 22 20 Rate Respiratory Rate [Anterior Bilateral Throughout] Blood Pressure 106/49 104/46 104/46 O2 Sat by Pulse 100 100 100 Oximetry 09/11/17 09/11/17 09/11/17 23:15 23:30 23:45 Temperature Pulse Rate 93 H 93 H 94 H Pulse Rate [ Anterior Bilateral Throughout] Respiratory 21 20 20 Rate Respiratory Rate [Anterior Bilateral Throughout] Blood Pressure 108/47 105/54 103/49 O2 Sat by Pulse 100 100 100 Oximetry 09/11/17 09/12/17 09/12/17 23:46 00:00 00:16 Temperature 99.0 F Pulse Rate 94 H 96 H 95 H Pulse Rate [ Anterior Bilateral Throughout] Respiratory 20 20 Rate Respiratory Rate [Anterior Bilateral Throughout] Blood Pressure 103/49 103/49 111/48 O2 Sat by Pulse 100 100 100 Oximetry 09/12/17 09/12/17 09/12/17 00:30 00:45 01:00 Temperature Pulse Rate 94 H 97 H 93 H Pulse Rate [ Anterior Bilateral Throughout] Respiratory 20 20 20 Rate Respiratory Rate [Anterior Bilateral Throughout] Blood Pressure 103/55 114/55 111/54 O2 Sat by Pulse 100 100 100 Oximetry 09/12/17 09/12/17 09/12/17 01:15 01:30 01:45 Temperature Pulse Rate 99 H 95 H 102 H Pulse Rate [ Anterior Bilateral Throughout] Respiratory 16 20 19 Rate Respiratory Rate [Anterior Bilateral Throughout] Blood Pressure 113/52 116/58 114/48 O2 Sat by Pulse 100 100 100 Oximetry 09/12/17 09/12/17 09/12/17 02:00 02:15 02:30 Temperature Pulse Rate 94 H 93 H 96 H Pulse Rate [ Anterior Bilateral Throughout] Respiratory 20 19 20 Rate Respiratory Rate [Anterior Bilateral Throughout] Blood Pressure 111/51 114/55 112/49 O2 Sat by Pulse 100 100 100 Oximetry 09/12/17 09/12/17 09/12/17 02:35 02:45 02:50 Temperature Pulse Rate 96 H Pulse Rate [ 109 H 11 L Anterior Bilateral Throughout] Respiratory 20 Rate Respiratory 22 22 Rate [Anterior Bilateral Throughout] Blood Pressure 111/57 O2 Sat by Pulse 100 Oximetry 09/12/17 09/12/17 09/12/17 03:00 03:16 03:30 Temperature Pulse Rate 94 H 120 H 105 H Pulse Rate [ Anterior Bilateral Throughout] Respiratory 19 24 18 Rate Respiratory Rate [Anterior Bilateral Throughout] Blood Pressure 115/51 115/51 104/41 O2 Sat by Pulse 100 100 100 Oximetry 09/12/17 09/12/17 09/12/17 03:45 04:00 04:15 Temperature 98.8 F Pulse Rate 105 H 105 H 102 H Pulse Rate [ Anterior Bilateral Throughout] Respiratory 17 14 19 Rate Respiratory Rate [Anterior Bilateral Throughout] Blood Pressure 103/49 93/53 101/47 O2 Sat by Pulse 100 100 100 Oximetry 09/12/17 09/12/17 09/12/17 04:30 04:46 04:52 Temperature Pulse Rate 99 H 102 H 97 H Pulse Rate [ Anterior Bilateral Throughout] Respiratory 20 17 Rate Respiratory Rate [Anterior Bilateral Throughout] Blood Pressure 104/45 108/39 108/39 O2 Sat by Pulse 100 100 100 Oximetry 09/12/17 09/12/17 09/12/17 05:00 05:15 05:30 Temperature Pulse Rate 101 H 97 H 104 H Pulse Rate [ Anterior Bilateral Throughout] Respiratory 19 20 19 Rate Respiratory Rate [Anterior Bilateral Throughout] Blood Pressure 101/45 99/40 101/44 O2 Sat by Pulse 100 100 100 Oximetry 09/12/17 09/12/17 09/12/17 05:45 06:00 06:15 Temperature Pulse Rate 96 H 96 H 98 H Pulse Rate [ Anterior Bilateral Throughout] Respiratory 19 19 20 Rate Respiratory Rate [Anterior Bilateral Throughout] Blood Pressure 97/38 108/45 98/44 O2 Sat by Pulse 100 100 100 Oximetry 09/12/17 09/12/17 09/12/17 06:30 06:45 07:00 Temperature Pulse Rate 95 H 95 H 96 H Pulse Rate [ Anterior Bilateral Throughout] Respiratory 20 20 20 Rate Respiratory Rate [Anterior Bilateral Throughout] Blood Pressure 106/45 106/43 108/44 O2 Sat by Pulse 100 100 100 Oximetry 09/12/17 09/12/17 09/12/17 07:15 07:30 07:46 Temperature Pulse Rate 96 H 103 H 99 H Pulse Rate [ Anterior Bilateral Throughout] Respiratory 13 16 17 Rate Respiratory Rate [Anterior Bilateral Throughout] Blood Pressure 97/40 97/40 85/42 O2 Sat by Pulse 100 100 100 Oximetry 09/12/17 09/12/1709/12/17 07:49 08:00 08:15 Temperature 98.9 F Pulse Rate 98 H 94 H Pulse Rate [ Anterior Bilateral Throughout] Respiratory 16 14 Rate Respiratory Rate [Anterior Bilateral Throughout] Blood Pressure 85/42 106/42 O2 Sat by Pulse 100 100 Oximetry - General Appearance General appearance: well-developed, appears stated age, obese, other (Trached, on vent, FiO2 30%, right IJ temp catheter) EENT: ATNC, PERRL Neck: other (trached) Respiratory: Present: Clear to Ascultation Cardiology: regular, S1S2, no murmurs Gastrointestinal: normoactive bowel sounds, obese, other (PEG tube, drain and dressing noted) Integumentary: no rash Neurologic: other (alert, not following any command) Musculoskeletal: other (2+ edema of both LEs noted) - Lab 09/12/17 05:25 09/11/17 23:12 Most recent lab results ABG pH 7.323 pH Units (7.350-7.450) L 09/09/17 Unknown ABG pCO2 41.1 mm Hg 09/09/17 Unknown ABG pO2 94.1 mm Hg (80.0-90.0) H 09/09/17 Unknown ABG HCO3 20.9 mmol/L (20.0-26.0) 09/09/17 Unknown ABG O2 Saturation 97.2 % (95.0-99.0) 09/09/17 Unknown Calcium 8.0 mg/dL (8.4-10.2) L 09/11/17 23:12 Phosphorus 4.00 mg/dL (2.5-4.5) D 09/10/17 07:00 Magnesium 2.30 mg/dL (1.7-2.3) 09/10/17 07:00
--- NOTE | 2017-09-12 09:18 | Progress Note ---
Assessment and Plan Acute bacterial peritonitis/abscess s/p exlap. Antibiotics. Surgery and ID following Shock. Still on pressors. Labs show a low hemoglobin this morning. Likely multifactorial SBO w wound dehiscence. Since surgery comments. Had Methylene blue testing yesterday Acute respiratory failure, hypoxia. On Vent support.ABG adequate but unable to wean Morbid obesity, ESRD Sepsis, on antibiotics. ID following LGIB status post acute blood loss anemia. No gross bleeding but will need 1 PRBC today, already ordered Rec: Continue ABX PRBC transfusion 1 Wean pressors as tolerated after this. Follow-up residuals and trickle feeding as noted by surgery. Echocardiogram did not reveal any additional signs of LV dysfunction or pericardial problems accounting for hypotension Prognosis is guarded . No family available. critical care time was 35 minutes of [id number] evaluation and coordination of care Subjective Date of service: 09/12/17 Principal diagnosis: respiratory failure, sepsis, shock rectal bleeding Interval history: Arousable, on ventilator support support Objective Vital Signs - 12hr 09/11/17 09/11/17 09/11/17 21:15 21:30 21:45 Temperature Pulse Rate 99 H 94 H 99 H Pulse Rate [ Anterior Bilateral Throughout] Respiratory 13 20 20 Rate Respiratory Rate [Anterior Bilateral Throughout] Blood Pressure 119/71 131/58 127/58 O2 Sat by Pulse 100 100 100 Oximetry 09/11/17 09/11/17 09/11/17 22:00 22:15 22:30 Temperature Pulse Rate 98 H 95 H 93 H Pulse Rate [ Anterior Bilateral Throughout] Respiratory 20 20 20 Rate Respiratory Rate [Anterior Bilateral Throughout] Blood Pressure 131/58 93/45 101/46 O2 Sat by Pulse 100 100 100 Oximetry 09/11/17 09/11/17 09/11/17 22:45 23:00 23:08 Temperature Pulse Rate 95 H 93 H 93 H Pulse Rate [ Anterior Bilateral Throughout] Respiratory 20 22 20 Rate Respiratory Rate [Anterior Bilateral Throughout] Blood Pressure 106/49 104/46 104/46 O2 Sat by Pulse 100 100 100 Oximetry 09/11/17 09/11/17 09/11/17 23:15 23:30 23:45 Temperature Pulse Rate 93 H 93 H 94 H Pulse Rate [ Anterior Bilateral Throughout] Respiratory 21 20 20 Rate Respiratory Rate [Anterior Bilateral Throughout] Blood Pressure 108/47 105/54 103/49 O2 Sat by Pulse 100 100 100 Oximetry 09/11/17 09/12/17 09/12/17 23:46 00:00 00:16 Temperature 99.0 F Pulse Rate 94 H 96 H 95 H Pulse Rate [ Anterior Bilateral Throughout] Respiratory 20 20 Rate Respiratory Rate [Anterior Bilateral Throughout] Blood Pressure 103/49 103/49 111/48 O2 Sat by Pulse 100 100 100 Oximetry 09/12/17 09/12/17 09/12/17 00:30 00:45 01:00 Temperature Pulse Rate 94 H 97 H 93 H Pulse Rate [ Anterior Bilateral Throughout] Respiratory 20 20 20 Rate Respiratory Rate [Anterior Bilateral Throughout] Blood Pressure 103/55 114/55 111/54 O2 Sat by Pulse 100 100 100 Oximetry 09/12/17 09/12/17 09/12/17 01:15 01:30 01:45 Temperature Pulse Rate 99 H 95 H 102 H Pulse Rate [ Anterior Bilateral Throughout] Respiratory 16 20 19 Rate Respiratory Rate [Anterior Bilateral Throughout] Blood Pressure 113/52 116/58 114/48 O2 Sat by Pulse 100 100 100 Oximetry 09/12/17 09/12/17 09/12/17 02:00 02:15 02:30 Temperature Pulse Rate 94 H 93 H 96 H Pulse Rate [ Anterior Bilateral Throughout] Respiratory 20 19 20 Rate Respiratory Rate [Anterior Bilateral Throughout] Blood Pressure 111/51 114/55 112/49 O2 Sat by Pulse 100 100 100 Oximetry 09/12/17 09/12/17 09/12/17 02:35 02:45 02:50 Temperature Pulse Rate 96 H Pulse Rate [ 109 H 11 L Anterior Bilateral Throughout] Respiratory 20 Rate Respiratory 22 22 Rate [Anterior Bilateral Throughout] Blood Pressure 111/57 O2 Sat by Pulse 100 Oximetry 09/12/17 09/12/17 09/12/17 03:00 03:16 03:30 Temperature Pulse Rate 94 H 120 H 105 H Pulse Rate [ Anterior Bilateral Throughout] Respiratory 19 24 18 Rate Respiratory Rate [Anterior Bilateral Throughout] Blood Pressure 115/51 115/51 104/41 O2 Sat by Pulse 100 100 100 Oximetry 09/12/17 09/12/17 09/12/17 03:45 04:00 04:15 Temperature 98.8 F Pulse Rate 105 H 105 H 102 H Pulse Rate [ Anterior Bilateral Throughout] Respiratory 17 14 19 Rate Respiratory Rate [Anterior Bilateral Throughout] Blood Pressure 103/49 93/53 101/47 O2 Sat by Pulse 100 100 100 Oximetry 09/12/17 09/12/17 09/12/17 04:30 04:46 04:52 Temperature Pulse Rate 99 H 102 H 97 H Pulse Rate [ Anterior Bilateral Throughout] Respiratory 20 17 Rate Respiratory Rate [Anterior Bilateral Throughout] Blood Pressure 104/45 108/39 108/39 O2 Sat by Pulse 100 100 100 Oximetry 09/12/17 09/12/17 09/12/17 05:00 05:15 05:30 Temperature Pulse Rate 101 H 97 H 104 H Pulse Rate [ Anterior Bilateral Throughout] Respiratory 19 20 19 Rate Respiratory Rate [Anterior Bilateral Throughout] Blood Pressure 101/45 99/40 101/44 O2 Sat by Pulse 100 100 100 Oximetry 09/12/17 09/12/17 09/12/17 05:45 06:00 06:15 Temperature Pulse Rate 96 H 96 H 98 H Pulse Rate [ Anterior Bilateral Throughout] Respiratory 19 19 20 Rate Respiratory Rate [Anterior Bilateral Throughout] Blood Pressure 97/38 108/45 98/44 O2 Sat by Pulse 100 100 100 Oximetry 09/12/17 09/12/17 09/12/17 06:30 06:45 07:00 Temperature Pulse Rate 95 H 95 H 96 H Pulse Rate [ Anterior Bilateral Throughout] Respiratory 20 20 20 Rate Respiratory Rate [Anterior Bilateral Throughout] Blood Pressure 106/45 106/43 108/44 O2 Sat by Pulse 100 100 100 Oximetry 09/12/17 09/12/17 09/12/17 07:15 07:30 07:46 Temperature Pulse Rate 96 H 103 H 99 H Pulse Rate [ Anterior Bilateral Throughout] Respiratory 13 16 17 Rate Respiratory Rate [Anterior Bilateral Throughout] Blood Pressure 97/40 97/40 85/42 O2 Sat by Pulse 100 100 100 Oximetry 09/12/17 09/12/17 09/12/17 07:49 08:00 08:15 Temperature 98.9 F Pulse Rate 98 H 94 H Pulse Rate [ Anterior Bilateral Throughout] Respiratory 16 14 Rate Respiratory Rate [Anterior Bilateral Throughout] Blood Pressure 85/42 106/42 O2 Sat by Pulse 100 100 Oximetry Constitutional: no acute distress, alert, other (critically ill on vent, obese) Eyes: non-icteric ENT: oropharynx moist, other (NGT) Neck: supple, no lymphadenopathy, no JVD (large neck), other (trach in position , no bleeding) Effort: mildly labored Ascultation: Bilateral: clear ( ), diminished breath sounds (Limited expansion) Cardiovascular: regular rate and rhythm Gastrointestinal: absent bowel sounds, non-tender, other (abdominal incision with dressing noted, obese. Drain in place no bleeding) Integumentary: normal Extremities: no cyanosis, pink and warm, edema (2+ bilateral LE edema) Neurologic: non-focal exam, pupils equal and round, other (RA SS -0) Psychiatric: mood appropriate, affect normal CBC and BMP: 09/12/17 05:25 09/11/17 23:12 ABG, PT/INR, D-dimer: ABG POC ABG pH 7.335 (7.35-7.45) L 08/30/17 03:31 ABG pH 7.323 pH Units (7.350-7.450) L 09/09/17 Unknown POC ABG pCO2 44.1 (35-45) 08/30/17 03:31 ABG pCO2 41.1 mm Hg 09/09/17 Unknown POC ABG pO2 117 (80-105) H 08/30/17 03:31 ABG pO2 94.1 mm Hg (80.0-90.0) H 09/09/17 Unknown POC ABG HCO3 23.5 08/30/17 03:31 POC ABG Total CO2 25 08/30/17 03:31 POC ABG O2 Sat 98 08/30/17 03:31 ABG O2 Saturation 97.2 % (95.0-99.0) 09/09/17 Unknown PT/INR, D-dimer PT 15.1 Sec. (12.2-14.9) H 08/31/17 18:15 INR 1.13 (0.87-1.13) 08/31/17 18:15 Abnormal lab findings: Abnormal Labs 08/08/17 08/08/17 08/09/17 21:23 21:31 11:19 WBC 15.7 H RBC 2.93 L Hgb 8.7 L Hct 26.8 L MCV MCH RDW 19.2 H Plt Count Lymph % (Auto) [place] % (Auto) [place] # Seg Neutrophils % Seg Neuts % (Manual) Lymphocytes % (Manual) Monocytes % (Manual) Nucleated RBC % Seg Neutrophils # Seg Neutrophils # Man Lymphocytes # (Manual) Monocytes # (Manual) Eosinophils # (Manual) Basophils # (Manual) PT INR POC ABG pH 7.490 H ABG pH POC ABG pCO2 POC ABG pO2 122 H ABG pO2 ABG O2 Saturation ABG Base Excess ABG Hemoglobin Oxyhemoglobin Sodium Potassium Chloride Carbon Dioxide BUN Creatinine Glucose POC Glucose Calcium Phosphorus Magnesium Iron TIBC AST ALT Alkaline Phosphatase Troponin T 0.133 H* C-Reactive Protein Total Protein Albumin Triglycerides HDL Cholesterol 26 L Miscellaneous Test Crossmatch 08/09/17 08/10/17 08/10/17 13:25 04:45 04:45 WBC 15.5 H RBC 2.97 L Hgb 8.9 L Hct 27.0 L MCV MCH RDW 19.2 H Plt Count Lymph % (Auto) [place] % (Auto) [place] # Seg Neutrophils % Seg Neuts % (Manual) 73.0 H Lymphocytes % (Manual) 7.0 L Monocytes % (Manual) 14.0 H Nucleated RBC % Seg Neutrophils # Seg Neutrophils # Man 11.3 H Lymphocytes # (Manual) 1.1 L Monocytes # (Manual) 2.2 H Eosinophils # (Manual) Basophils # (Manual) 0.2 H PT INR POC ABG pH ABG pH POC ABG pCO2 POC ABG pO2 ABG pO2 ABG O2 Saturation ABG Base Excess ABG Hemoglobin Oxyhemoglobin Sodium Potassium 3.3 L Chloride 97.3 L Carbon Dioxide 21 L BUN 23 H Creatinine 6.5 H Glucose POC Glucose Calcium 7.3 L Phosphorus Magnesium Iron TIBC AST ALT Alkaline Phosphatase 138 H Troponin T 0.132 H* C-Reactive Protein Total Protein 4.8 L Albumin 1.4 L Triglycerides HDL Cholesterol Miscellaneous Test Crossmatch 08/11/17 08/11/17 08/12/17 04:00 04:00 05:50 WBC 19.3 H RBC 3.10 L Hgb 9.5 L Hct 28.2 L MCV MCH RDW 19.2 H Plt Count 463 H Lymph % (Auto) 7.5 L [place] % (Auto) 14.6 H [place] # 2.8 H Seg Neutrophils % 77.0 H Seg Neuts % (Manual) Lymphocytes % (Manual) Monocytes % (Manual) Nucleated RBC % Seg Neutrophils # 14.8 H Seg Neutrophils # Man Lymphocytes # (Manual) Monocytes # (Manual) Eosinophils # (Manual) Basophils # (Manual) PT INR POC ABG pH ABG pH POC ABG pCO2 POC ABG pO2 ABG pO2 ABG O2 Saturation ABG Base Excess ABG Hemoglobin Oxyhemoglobin Sodium 136 L 136 L Potassium 3.3 L Chloride 96.3 L 96.6 L Carbon Dioxide BUN 26 H 26 H Creatinine 6.4 H 6.2 H Glucose 135 H 133 H POC Glucose Calcium 8.2 L Phosphorus Magnesium 1.30 L Iron TIBC AST ALT Alkaline Phosphatase 139 H Troponin T C-Reactive Protein Total Protein 5.5 L Albumin 1.7 L Triglycerides HDL Cholesterol Miscellaneous Test Crossmatch 08/12/17 08/12/17 08/12/17 05:50 05:50 05:50 WBC 20.1 H RBC 3.06 L Hgb 9.3 L Hct 27.9 L MCV MCH RDW 18.4 H Plt Count 471 H Lymph % (Auto) [place] % (Auto) [place] # Seg Neutrophils % Seg Neuts % (Manual) 85.0 H Lymphocytes % (Manual) 8.0 L Monocytes % (Manual) Nucleated RBC % Seg Neutrophils # Seg Neutrophils # Man 17.1 H Lymphocytes # (Manual) Monocytes # (Manual) 1.0 H Eosinophils # (Manual) Basophils # (Manual) PT 15.2 H INR 1.14 H POC ABG pH ABG pH POC ABG pCO2 POC ABG pO2 ABG pO2 ABG O2 Saturation ABG Base Excess ABG Hemoglobin Oxyhemoglobin Sodium Potassium Chloride Carbon Dioxide BUN Creatinine Glucose POC Glucose Calcium Phosphorus Magnesium Iron TIBC AST ALT Alkaline Phosphatase Troponin T C-Reactive Protein 28.90 H Total Protein Albumin Triglycerides HDL Cholesterol Miscellaneous Test Crossmatch 08/12/17 08/13/17 08/13/17 16:23 06:14 06:14 WBC 21.8 H RBC 3.11 L Hgb 9.4 L Hct 28.2 L MCV MCH RDW 18.2 H Plt Count 492 H Lymph % (Auto) [place] % (Auto) [place] # Seg Neutrophils % Seg Neuts % (Manual) 73.0 H Lymphocytes % (Manual) 2.0 L Monocytes % (Manual) 15 H Nucleated RBC % Seg Neutrophils # Seg Neutrophils # Man 15.9 H Lymphocytes # (Manual) 0.4 L Monocytes # (Manual) 2.4 H Eosinophils # (Manual) Basophils # (Manual) PT INR POC ABG pH ABG pH POC ABG pCO2 POC ABG pO2 ABG pO2 ABG O2 Saturation ABG Base Excess ABG Hemoglobin Oxyhemoglobin Sodium Potassium Chloride 96.2 L Carbon Dioxide BUN 28 H Creatinine 5.6 H Glucose 114 H POC Glucose Calcium Phosphorus Magnesium Iron TIBC AST ALT Alkaline Phosphatase Troponin T C-Reactive Protein 26.10 H Total Protein Albumin Triglycerides HDL Cholesterol Miscellaneous Test Crossmatch 08/13/17 08/14/17 08/14/17 16:39 04:00 04:00 WBC 22.1 H RBC 3.25 L Hgb 9.9 L Hct 29.5 L MCV MCH RDW 17.9 H Plt Count 525 H Lymph % (Auto) [place] % (Auto) [place] # Seg Neutrophils % Seg Neuts % (Manual) 74.0 H Lymphocytes % (Manual) 8.0 L Monocytes % (Manual) 12.0 H Nucleated RBC % Seg Neutrophils # Seg Neutrophils # Man 16.4 H Lymphocytes # (Manual) Monocytes # (Manual) 2.7 H Eosinophils # (Manual) Basophils # (Manual) PT INR POC ABG pH ABG pH POC ABG pCO2 POC ABG pO2 ABG pO2 ABG O2 Saturation ABG Base Excess ABG Hemoglobin Oxyhemoglobin Sodium 134 L Potassium 3.3 L Chloride 93.3 L Carbon Dioxide BUN 27 H Creatinine 6.0 H Glucose 152 H POC Glucose 151 H Calcium Phosphorus Magnesium Iron TIBC AST ALT Alkaline Phosphatase Troponin T C-Reactive Protein Total Protein Albumin Triglycerides HDL Cholesterol Miscellaneous Test Crossmatch 08/15/17 08/16/17 08/16/17 09:10 09:50 09:50 WBC 31.1 H RBC 3.21 L Hgb 9.6 L Hct 29.3 L MCV MCH RDW 18.1 H Plt Count 642 H Lymph % (Auto) [place] % (Auto) [place] # Seg Neutrophils % Seg Neuts % (Manual) 74.0 H Lymphocytes % (Manual) 4.0 L Monocytes % (Manual) 9.0 H Nucleated RBC % Seg Neutrophils # Seg Neutrophils # Man 23.0 H Lymphocytes # (Manual) Monocytes # (Manual) 2.8 H Eosinophils # (Manual) Basophils # (Manual) PT INR POC ABG pH ABG pH POC ABG pCO2 POC ABG pO2 ABG pO2 ABG O2 Saturation ABG Base Excess ABG Hemoglobin Oxyhemoglobin Sodium 136 L 136 L Potassium 3.5 L Chloride 97.6 L 94.9 L Carbon Dioxide BUN 27 H 28 H Creatinine 5.6 H 5.5 H Glucose 117 H 103 H POC Glucose Calcium Phosphorus Magnesium Iron TIBC AST ALT Alkaline Phosphatase 137 H Troponin T C-Reactive Protein Total Protein 5.4 L Albumin 1.5 L Triglycerides HDL Cholesterol Miscellaneous Test Crossmatch 08/16/17 08/17/17 08/17/17 09:50 05:00 06:26 WBC RBC Hgb Hct MCV MCH RDW Plt Count Lymph % (Auto) [place] % (Auto) [place] # Seg Neutrophils % Seg Neuts % (Manual) Lymphocytes % (Manual) Monocytes % (Manual) Nucleated RBC % Seg Neutrophils # Seg Neutrophils # Man Lymphocytes # (Manual) Monocytes # (Manual) Eosinophils # (Manual) Basophils # (Manual) PT INR POC ABG pH ABG pH POC ABG pCO2 POC ABG pO2 ABG pO2 ABG O2 Saturation ABG Base Excess ABG Hemoglobin Oxyhemoglobin Sodium 134 L Potassium 3.0 L Chloride 97.8 L Carbon Dioxide BUN 30 H Creatinine 5.3 H Glucose 147 H POC Glucose 165 H Calcium 7.5 L Phosphorus Magnesium Iron TIBC AST ALT Alkaline Phosphatase Troponin T C-Reactive Protein 32.30 H Total Protein Albumin Triglycerides HDL Cholesterol Miscellaneous Test Crossmatch 08/17/17 08/17/17 08/17/17 10:56 11:20 11:20 WBC 39.1 H RBC 3.10 L Hgb 9.2 L Hct 28.6 L MCV MCH RDW 18.3 H Plt Count 580 H Lymph % (Auto) [place] % (Auto) [place] # Seg Neutrophils % Seg Neuts % (Manual) 89.5 H Lymphocytes % (Manual) 3.5 L Monocytes % (Manual) Nucleated RBC % Seg Neutrophils # Seg Neutrophils # Man 35.0 H Lymphocytes # (Manual) Monocytes # (Manual) 2.5 H Eosinophils # (Manual) Basophils # (Manual) 0.2 H PT INR POC ABG pH 7.464 H ABG pH POC ABG pCO2 34.1 L POC ABG pO2 75 L ABG pO2 ABG O2 Saturation ABG Base Excess ABG Hemoglobin Oxyhemoglobin Sodium Potassium Chloride Carbon Dioxide BUN Creatinine Glucose POC Glucose Calcium Phosphorus Magnesium Iron TIBC AST ALT Alkaline Phosphatase Troponin T C-Reactive Protein Total Protein Albumin Triglycerides HDL Cholesterol Miscellaneous Test Flexitest 1 H Crossmatch 08/17/17 08/17/17 08/17/17 11:20 16:57 20:20 WBC 34.4 H RBC 2.81 L Hgb 8.4 L Hct 26.0 L MCV MCH RDW 17.8 H Plt Count 455 H Lymph % (Auto) [place] % (Auto) [place] # Seg Neutrophils % Seg Neuts % (Manual) Lymphocytes % (Manual) 3.5 L Monocytes % (Manual) Nucleated RBC % 5.0 H Seg Neutrophils # Seg Neutrophils # Man 16.5 H Lymphocytes # (Manual) Monocytes # (Manual) 1.0 H Eosinophils # (Manual) Basophils # (Manual) PT 16.0 H INR 1.29 H POC ABG pH ABG pH POC ABG pCO2 POC ABG pO2 ABG pO2 ABG O2 Saturation ABG Base Excess ABG Hemoglobin Oxyhemoglobin Sodium 135 L Potassium 2.9 L* Chloride Carbon Dioxide 20 L BUN 32 H Creatinine 5.4 H Glucose 129 H POC Glucose Calcium 7.5 L Phosphorus Magnesium 1.50 L Iron TIBC AST 85 H ALT Alkaline Phosphatase Troponin T C-Reactive Protein Total Protein 4.0 L D Albumin 1.6 L Triglycerides HDL Cholesterol Miscellaneous Test Crossmatch 08/17/17 08/17/17 08/18/17 20:54 23:47 04:26 WBC RBC Hgb Hct MCV MCH RDW Plt Count Lymph % (Auto) [place] % (Auto) [place] # Seg Neutrophils % Seg Neuts % (Manual) Lymphocytes % (Manual) Monocytes % (Manual) Nucleated RBC % Seg Neutrophils # Seg Neutrophils # Man Lymphocytes # (Manual) Monocytes # (Manual) Eosinophils # (Manual) Basophils # (Manual) PT INR POC ABG pH 7.557 H ABG pH POC ABG pCO2 23.1 L 29.0 L POC ABG pO2 187 H 148 H ABG pO2 ABG O2 Saturation ABG Base Excess ABG Hemoglobin Oxyhemoglobin Sodium Potassium Chloride Carbon Dioxide BUN Creatinine Glucose POC Glucose 188 H Calcium Phosphorus Magnesium Iron TIBC AST ALT Alkaline Phosphatase Troponin T C-Reactive Protein Total Protein Albumin Triglycerides HDL Cholesterol Miscellaneous Test Crossmatch 08/18/17 08/18/17 08/18/17 05:51 11:44 17:07 WBC RBC Hgb Hct MCV MCH RDW Plt Count Lymph % (Auto) [place] % (Auto) [place] # Seg Neutrophils % Seg Neuts % (Manual) Lymphocytes % (Manual) Monocytes % (Manual) Nucleated RBC % Seg Neutrophils # Seg Neutrophils # Man Lymphocytes # (Manual) Monocytes # (Manual) Eosinophils # (Manual) Basophils # (Manual) PT INR POC ABG pH ABG pH POC ABG pCO2 POC ABG pO2 ABG pO2 ABG O2 Saturation ABG Base Excess ABG Hemoglobin Oxyhemoglobin Sodium Potassium Chloride Carbon Dioxide BUN Creatinine Glucose POC Glucose 202 H 195 H 182 H Calcium Phosphorus Magnesium Iron TIBC AST ALT Alkaline Phosphatase Troponin T C-Reactive Protein Total Protein Albumin Triglycerides HDL Cholesterol Miscellaneous Test Crossmatch 08/18/17 08/18/17 08/18/17 23:45 Unknown Unknown WBC 39.0 H RBC 2.84 L Hgb 8.4 L Hct 26.5 L MCV MCH RDW 18.0 H Plt Count 476 H Lymph % (Auto) [place] % (Auto) [place] # Seg Neutrophils % Seg Neuts % (Manual) Lymphocytes % (Manual) 7.0 L Monocytes % (Manual) 10.0 H Nucleated RBC % 3.0 H Seg Neutrophils # Seg Neutrophils # Man 15.6 H Lymphocytes # (Manual) Monocytes # (Manual) 3.9 H Eosinophils # (Manual) Basophils # (Manual) PT INR POC ABG pH ABG pH POC ABG pCO2 POC ABG pO2 ABG pO2 ABG O2 Saturation ABG Base Excess ABG Hemoglobin Oxyhemoglobin Sodium Potassium Chloride Carbon Dioxide 19 L BUN 34 H Creatinine 5.6 H Glucose 201 H POC Glucose 163 H Calcium 7.8 L Phosphorus 1.90 L D Magnesium 1.60 L Iron TIBC AST ALT Alkaline Phosphatase Troponin T C-Reactive Protein Total Protein Albumin Triglycerides HDL Cholesterol Miscellaneous Test Crossmatch 08/19/17 08/19/17 08/19/17 04:18 05:00 05:00 WBC 40.0 H RBC 2.46 L Hgb 7.3 L Hct 22.6 L MCV MCH RDW 18.1 H Plt Count Lymph % (Auto) [place] % (Auto) [place] # Seg Neutrophils % Seg Neuts % (Manual) Lymphocytes % (Manual) 8.0 L Monocytes % (Manual) Nucleated RBC % 2.0 H Seg Neutrophils # Seg Neutrophils # Man 16.4 H Lymphocytes # (Manual) Monocytes # (Manual) 1.2 H Eosinophils # (Manual) 1.2 H Basophils # (Manual) PT INR POC ABG pH 7.463 H ABG pH POC ABG pCO2 29.7 L POC ABG pO2 134 H ABG pO2 ABG O2 Saturation ABG Base Excess ABG Hemoglobin Oxyhemoglobin Sodium Potassium 5.1 H D Chloride Carbon Dioxide 20 L BUN 40 H Creatinine 5.3 H Glucose 128 H POC Glucose Calcium 7.8 L Phosphorus 1.90 L Magnesium Iron TIBC AST ALT Alkaline Phosphatase Troponin T C-Reactive Protein Total Protein Albumin Triglycerides HDL Cholesterol Miscellaneous Test Crossmatch 08/19/17 08/19/17 08/19/17 05:19 07:37 09:52 WBC 45.0 H* RBC 2.50 L Hgb 7.5 L Hct 24.5 L MCV 98 H MCH RDW 18.4 H Plt Count Lymph % (Auto) [place] % (Auto) [place] # Seg Neutrophils % Seg Neuts % (Manual) 81.5 H Lymphocytes % (Manual) 4.0 L Monocytes % (Manual) Nucleated RBC % 1.0 H Seg Neutrophils # Seg Neutrophils # Man 36.7 H Lymphocytes # (Manual) Monocytes # (Manual) Eosinophils # (Manual) Basophils # (Manual) PT INR POC ABG pH ABG pH POC ABG pCO2 POC ABG pO2 ABG pO2 ABG O2 Saturation ABG Base Excess ABG Hemoglobin Oxyhemoglobin Sodium Potassium Chloride Carbon Dioxide BUN Creatinine Glucose POC Glucose 142 H Calcium Phosphorus Magnesium Iron TIBC AST ALT Alkaline Phosphatase Troponin T C-Reactive Protein 34.20 H Total Protein Albumin Triglycerides HDL Cholesterol Miscellaneous Test Crossmatch 08/19/17 08/19/17 08/20/17 11:16 18:12 00:35 WBC RBC Hgb Hct MCV MCH RDW Plt Count Lymph % (Auto) [place] % (Auto) [place] # Seg Neutrophils % Seg Neuts % (Manual) Lymphocytes % (Manual) Monocytes % (Manual) Nucleated RBC % Seg Neutrophils # Seg Neutrophils # Man Lymphocytes # (Manual) Monocytes # (Manual) Eosinophils # (Manual) Basophils # (Manual) PT INR POC ABG pH ABG pH POC ABG pCO2 POC ABG pO2 ABG pO2 ABG O2 Saturation ABG Base Excess ABG Hemoglobin Oxyhemoglobin Sodium Potassium Chloride Carbon Dioxide BUN Creatinine Glucose POC Glucose 143 H 137 H 164 H Calcium Phosphorus Magnesium Iron TIBC AST ALT Alkaline Phosphatase Troponin T C-Reactive Protein Total Protein Albumin Triglycerides HDL Cholesterol Miscellaneous Test Crossmatch 08/20/17 08/20/17 08/20/17 03:20 03:20 04:00 WBC 48.0 H* RBC 2.55 L Hgb 7.6 L Hct 23.4 L MCV MCH RDW 18.4 H Plt Count Lymph % (Auto) [place] % (Auto) [place] # Seg Neutrophils % Seg Neuts % (Manual) 90.0 H Lymphocytes % (Manual) 3.0 L Monocytes % (Manual) Nucleated RBC % Seg Neutrophils # Seg Neutrophils # Man 43.2 H Lymphocytes # (Manual) Monocytes # (Manual) 1.4 H Eosinophils # (Manual) 0.5 H Basophils # (Manual) PT INR POC ABG pH 7.499 H ABG pH POC ABG pCO2 29.1 L POC ABG pO2 ABG pO2 ABG O2 Saturation ABG Base Excess ABG Hemoglobin Oxyhemoglobin Sodium 135 L Potassium Chloride Carbon Dioxide BUN 28 H Creatinine 4.0 H Glucose 140 H POC Glucose Calcium 8.0 L Phosphorus 1.70 L Magnesium 1.60 L Iron TIBC AST ALT Alkaline Phosphatase Troponin T C-Reactive Protein Total Protein Albumin Triglycerides HDL Cholesterol Miscellaneous Test Crossmatch 08/20/17 08/20/17 08/20/17 05:02 12:05 13:12 WBC RBC Hgb Hct MCV MCH RDW Plt Count Lymph % (Auto) [place] % (Auto) [place] # Seg Neutrophils % Seg Neuts % (Manual) Lymphocytes % (Manual) Monocytes % (Manual) Nucleated RBC % Seg Neutrophils # Seg Neutrophils # Man Lymphocytes # (Manual) Monocytes # (Manual) Eosinophils # (Manual) Basophils # (Manual) PT INR POC ABG pH 7.537 H ABG pH POC ABG pCO2 27.9 L POC ABG pO2 79 L ABG pO2 ABG O2 Saturation ABG Base Excess ABG Hemoglobin Oxyhemoglobin Sodium Potassium Chloride Carbon Dioxide BUN Creatinine Glucose POC Glucose 158 H 203 H Calcium Phosphorus Magnesium Iron TIBC AST ALT Alkaline Phosphatase Troponin T C-Reactive Protein Total Protein Albumin Triglycerides HDL Cholesterol Miscellaneous Test Crossmatch 08/20/17 08/21/17 08/21/17 17:13 00:47 03:14 WBC RBC Hgb Hct MCV MCH RDW Plt Count Lymph % (Auto) [place] % (Auto) [place] # Seg Neutrophils % Seg Neuts % (Manual) Lymphocytes % (Manual) Monocytes % (Manual) Nucleated RBC % Seg Neutrophils # Seg Neutrophils # Man Lymphocytes # (Manual) Monocytes # (Manual) Eosinophils # (Manual) Basophils # (Manual) PT INR POC ABG pH 7.481 H ABG pH POC ABG pCO2 29.6 L POC ABG pO2 ABG pO2 ABG O2 Saturation ABG Base Excess ABG Hemoglobin Oxyhemoglobin Sodium Potassium Chloride Carbon Dioxide BUN Creatinine Glucose POC Glucose 188 H 109 H Calcium Phosphorus Magnesium Iron TIBC AST ALT Alkaline Phosphatase Troponin T C-Reactive Protein Total Protein Albumin Triglycerides HDL Cholesterol Miscellaneous Test Crossmatch 08/21/17 08/21/17 08/21/17 05:05 06:50 06:50 WBC 44.7 H* RBC 2.41 L Hgb 7.1 L Hct 22.1 L MCV MCH RDW 18.3 H Plt Count Lymph % (Auto) [place] % (Auto) [place] # Seg Neutrophils % Seg Neuts % (Manual) 89.0 H Lymphocytes % (Manual) 0 L Monocytes % (Manual) Nucleated RBC % 1.0 H Seg Neutrophils # Seg Neutrophils # Man 39.8 H Lymphocytes # (Manual) 0.0 L Monocytes # (Manual) 1.3 H Eosinophils # (Manual) Basophils # (Manual) PT INR POC ABG pH ABG pH POC ABG pCO2 POC ABG pO2 ABG pO2 ABG O2 Saturation ABG Base Excess ABG Hemoglobin Oxyhemoglobin Sodium 135 L Potassium Chloride Carbon Dioxide BUN 39 H Creatinine 4.4 H Glucose 147 H POC Glucose 166 H Calcium 8.1 L Phosphorus Magnesium Iron TIBC AST ALT < 5 L Alkaline Phosphatase 164 H Troponin T C-Reactive Protein Total Protein 4.7 L Albumin 1.4 L Triglycerides HDL Cholesterol Miscellaneous Test Crossmatch 08/21/17 08/21/17 08/21/17 08:00 12:21 17:02 WBC RBC Hgb Hct MCV MCH RDW Plt Count Lymph % (Auto) [place] % (Auto) [place] # Seg Neutrophils % Seg Neuts % (Manual) Lymphocytes % (Manual) Monocytes % (Manual) Nucleated RBC % Seg Neutrophils # Seg Neutrophils # Man Lymphocytes # (Manual) Monocytes # (Manual) Eosinophils # (Manual) Basophils # (Manual) PT INR POC ABG pH ABG pH POC ABG pCO2 POC ABG pO2 ABG pO2 ABG O2 Saturation ABG Base Excess ABG Hemoglobin Oxyhemoglobin Sodium Potassium Chloride Carbon Dioxide BUN Creatinine Glucose POC Glucose 147 H 135 H Calcium Phosphorus Magnesium Iron TIBC AST ALT Alkaline Phosphatase Troponin T C-Reactive Protein Total Protein Albumin Triglycerides HDL Cholesterol Miscellaneous Test Crossmatch See Detail 08/21/17 08/22/17 08/22/17 23:38 03:40 03:40 WBC 42.5 H* RBC 2.88 L Hgb 8.5 L Hct 26.3 L MCV MCH RDW 17.9 H Plt Count Lymph % (Auto) [place] % (Auto) [place] # Seg Neutrophils % Seg Neuts % (Manual) Lymphocytes % (Manual) 5.0 L Monocytes % (Manual) Nucleated RBC % Seg Neutrophils # Seg Neutrophils # Man 19.6 H Lymphocytes # (Manual) Monocytes # (Manual) 2.6 H Eosinophils # (Manual) Basophils # (Manual) PT INR POC ABG pH ABG pH POC ABG pCO2 POC ABG pO2 ABG pO2 ABG O2 Saturation ABG Base Excess ABG Hemoglobin Oxyhemoglobin Sodium Potassium 3.3 L D Chloride Carbon Dioxide BUN 27 H Creatinine 2.9 H Glucose 144 H POC Glucose 251 H Calcium 8.0 L Phosphorus 2.40 L Magnesium Iron TIBC AST ALT Alkaline Phosphatase Troponin T C-Reactive Protein Total Protein Albumin Triglycerides HDL Cholesterol Miscellaneous Test Crossmatch 08/22/17 08/22/17 08/22/17 06:37 08:50 11:25 WBC RBC Hgb Hct MCV MCH RDW Plt Count Lymph % (Auto) [place] % (Auto) [place] # Seg Neutrophils % Seg Neuts % (Manual) Lymphocytes % (Manual) Monocytes % (Manual) Nucleated RBC % Seg Neutrophils # Seg Neutrophils # Man Lymphocytes # (Manual) Monocytes # (Manual) Eosinophils # (Manual) Basophils # (Manual) PT INR POC ABG pH ABG pH POC ABG pCO2 POC ABG pO2 ABG pO2 ABG O2 Saturation ABG Base Excess ABG Hemoglobin Oxyhemoglobin Sodium Potassium Chloride Carbon Dioxide BUN Creatinine Glucose POC Glucose 152 H 175 H Calcium Phosphorus Magnesium Iron TIBC AST ALT Alkaline Phosphatase Troponin T C-Reactive Protein Total Protein Albumin Triglycerides HDL Cholesterol Miscellaneous Test Flexitest 1 H Crossmatch 08/22/17 08/22/17 08/22/17 16:25 17:56 23:03 WBC RBC Hgb Hct MCV MCH RDW Plt Count Lymph % (Auto) [place] % (Auto) [place] # Seg Neutrophils % Seg Neuts % (Manual) Lymphocytes % (Manual) Monocytes % (Manual) Nucleated RBC % Seg Neutrophils # Seg Neutrophils # Man Lymphocytes # (Manual) Monocytes # (Manual) Eosinophils # (Manual) Basophils # (Manual) PT INR POC ABG pH ABG pH POC ABG pCO2 POC ABG pO2 ABG pO2 ABG O2 Saturation ABG Base Excess ABG Hemoglobin Oxyhemoglobin Sodium Potassium Chloride Carbon Dioxide BUN Creatinine Glucose POC Glucose 232 H 192 H Calcium Phosphorus Magnesium Iron TIBC AST ALT Alkaline Phosphatase Troponin T C-Reactive Protein 30.70 H Total Protein Albumin Triglycerides HDL Cholesterol Miscellaneous Test Crossmatch 08/23/17 08/23/17 08/23/17 05:36 08:50 12:14 WBC RBC Hgb Hct MCV MCH RDW Plt Count Lymph % (Auto) [place] % (Auto) [place] # Seg Neutrophils % Seg Neuts % (Manual) Lymphocytes % (Manual) Monocytes % (Manual) Nucleated RBC % Seg Neutrophils # Seg Neutrophils # Man Lymphocytes # (Manual) Monocytes # (Manual) Eosinophils # (Manual) Basophils # (Manual) PT INR POC ABG pH ABG pH POC ABG pCO2 POC ABG pO2 ABG pO2 ABG O2 Saturation ABG Base Excess ABG Hemoglobin Oxyhemoglobin Sodium Potassium Chloride 107.1 H Carbon Dioxide BUN 49 H Creatinine 3.3 H Glucose 172 H POC Glucose 206 H 238 H Calcium Phosphorus Magnesium 2.40 H Iron TIBC AST ALT Alkaline Phosphatase Troponin T C-Reactive Protein Total Protein Albumin Triglycerides HDL Cholesterol Miscellaneous Test Crossmatch 08/23/17 08/23/17 08/24/17 17:21 23:13 04:00 WBC 34.2 H RBC 2.86 L Hgb 8.4 L Hct 25.9 L MCV MCH RDW 17.9 H Plt Count Lymph % (Auto) [place] % (Auto) [place] # Seg Neutrophils % Seg Neuts % (Manual) 85.0 H Lymphocytes % (Manual) 0.5 L Monocytes % (Manual) Nucleated RBC % 1.0 H Seg Neutrophils # Seg Neutrophils # Man 29.1 H Lymphocytes # (Manual) 0.2 L Monocytes # (Manual) 2.4 H Eosinophils # (Manual) Basophils # (Manual) PT INR POC ABG pH ABG pH POC ABG pCO2 POC ABG pO2 ABG pO2 ABG O2 Saturation ABG Base Excess ABG Hemoglobin Oxyhemoglobin Sodium Potassium Chloride Carbon Dioxide BUN Creatinine Glucose POC Glucose 226 H 183 H Calcium Phosphorus Magnesium Iron TIBC AST ALT Alkaline Phosphatase Troponin T C-Reactive Protein Total Protein Albumin Triglycerides HDL Cholesterol Miscellaneous Test Crossmatch 08/24/17 08/24/17 08/24/17 05:06 09:30 12:04 WBC RBC Hgb Hct MCV MCH RDW Plt Count Lymph % (Auto) [place] % (Auto) [place] # Seg Neutrophils % Seg Neuts % (Manual) Lymphocytes % (Manual) Monocytes % (Manual) Nucleated RBC % Seg Neutrophils # Seg Neutrophils # Man Lymphocytes # (Manual) Monocytes # (Manual) Eosinophils # (Manual) Basophils # (Manual) PT INR POC ABG pH ABG pH POC ABG pCO2 POC ABG pO2 ABG pO2 ABG O2 Saturation ABG Base Excess ABG Hemoglobin Oxyhemoglobin Sodium Potassium Chloride Carbon Dioxide BUN 46 H Creatinine 2.5 H Glucose 176 H POC Glucose 201 H 181 H Calcium Phosphorus Magnesium Iron TIBC AST ALT Alkaline Phosphatase Troponin T C-Reactive Protein Total Protein Albumin Triglycerides HDL Cholesterol Miscellaneous Test Crossmatch 08/24/17 08/24/17 08/25/17 18:04 23:05 05:05 WBC RBC Hgb Hct MCV MCH RDW Plt Count Lymph % (Auto) [place] % (Auto) [place] # Seg Neutrophils % Seg Neuts % (Manual) Lymphocytes % (Manual) Monocytes % (Manual) Nucleated RBC % Seg Neutrophils # Seg Neutrophils # Man Lymphocytes # (Manual) Monocytes # (Manual) Eosinophils # (Manual) Basophils # (Manual) PT INR POC ABG pH ABG pH POC ABG pCO2 POC ABG pO2 ABG pO2 ABG O2 Saturation ABG Base Excess ABG Hemoglobin Oxyhemoglobin Sodium Potassium Chloride Carbon Dioxide BUN Creatinine Glucose POC Glucose 189 H 175 H 190 H Calcium Phosphorus Magnesium Iron TIBC AST ALT Alkaline Phosphatase Troponin T C-Reactive Protein Total Protein Albumin Triglycerides HDL Cholesterol Miscellaneous Test Crossmatch 08/25/17 08/25/17 08/26/17 07:02 11:53 05:30 WBC 33.5 H RBC 2.47 L Hgb 7.3 L Hct 23.0 L MCV MCH RDW 21.3 H Plt Count Lymph % (Auto) [place] % (Auto) [place] # Seg Neutrophils % Seg Neuts % (Manual) 92.0 H Lymphocytes % (Manual) 1.0 L Monocytes % (Manual) Nucleated RBC % Seg Neutrophils # Seg Neutrophils # Man 30.8 H Lymphocytes # (Manual) 0.3 L Monocytes # (Manual) Eosinophils # (Manual) Basophils # (Manual) PT INR POC ABG pH ABG pH POC ABG pCO2 POC ABG pO2 ABG pO2 ABG O2 Saturation ABG Base Excess ABG Hemoglobin Oxyhemoglobin Sodium Potassium Chloride Carbon Dioxide BUN 32 H Creatinine 5.0 H D Glucose 117 H POC Glucose 191 H Calcium 8.0 L Phosphorus Magnesium Iron TIBC AST ALT Alkaline Phosphatase Troponin T C-Reactive Protein Total Protein Albumin Triglycerides HDL Cholesterol Miscellaneous Test Crossmatch 08/26/17 08/26/17 08/26/17 05:30 06:44 13:26 WBC RBC Hgb Hct MCV MCH RDW Plt Count Lymph % (Auto) [place] % (Auto) [place] # Seg Neutrophils % Seg Neuts % (Manual) Lymphocytes % (Manual) Monocytes % (Manual) Nucleated RBC % Seg Neutrophils # Seg Neutrophils # Man Lymphocytes # (Manual) Monocytes # (Manual) Eosinophils # (Manual) Basophils # (Manual) PT INR POC ABG pH ABG pH POC ABG pCO2 POC ABG pO2 ABG pO2 ABG O2 Saturation ABG Base Excess ABG Hemoglobin Oxyhemoglobin Sodium Potassium 5.2 H Chloride Carbon Dioxide BUN 80 H Creatinine 3.4 H Glucose 193 H POC Glucose 232 H 207 H Calcium 8.3 L Phosphorus 6.80 H D Magnesium 2.60 H Iron TIBC AST 135 H ALT Alkaline Phosphatase 211 H Troponin T C-Reactive Protein Total Protein 4.8 L Albumin 2.0 L Triglycerides HDL Cholesterol Miscellaneous Test Crossmatch 08/27/17 08/27/17 08/27/17 01:08 06:20 06:20 WBC 35.0 H RBC 2.75 L Hgb 8.4 L Hct 25.1 L MCV MCH RDW 21.8 H Plt Count Lymph % (Auto) [place] % (Auto) [place] # Seg Neutrophils % Seg Neuts % (Manual) Lymphocytes % (Manual) 4.5 L Monocytes % (Manual) Nucleated RBC % Seg Neutrophils # Seg Neutrophils # Man 31.9 H Lymphocytes # (Manual) Monocytes # (Manual) 1.2 H Eosinophils # (Manual) Basophils # (Manual) PT INR POC ABG pH ABG pH POC ABG pCO2 POC ABG pO2 ABG pO2 ABG O2 Saturation ABG Base Excess ABG Hemoglobin Oxyhemoglobin Sodium Potassium Chloride Carbon Dioxide BUN 61 H Creatinine 2.6 H Glucose 184 H POC Glucose 146 H Calcium Phosphorus 4.90 H D Magnesium Iron TIBC AST ALT Alkaline Phosphatase Troponin T C-Reactive Protein Total Protein Albumin Triglycerides HDL Cholesterol Miscellaneous Test Crossmatch 08/27/17 08/27/17 08/27/17 07:01 09:17 12:52 WBC RBC Hgb Hct MCV MCH RDW Plt Count Lymph % (Auto) [place] % (Auto) [place] # Seg Neutrophils % Seg Neuts % (Manual) Lymphocytes % (Manual) Monocytes % (Manual) Nucleated RBC % Seg Neutrophils # Seg Neutrophils # Man Lymphocytes # (Manual) Monocytes # (Manual) Eosinophils # (Manual) Basophils # (Manual) PT INR POC ABG pH ABG pH POC ABG pCO2 POC ABG pO2 ABG pO2 ABG O2 Saturation ABG Base Excess ABG Hemoglobin Oxyhemoglobin Sodium Potassium Chloride Carbon Dioxide BUN Creatinine Glucose POC Glucose 165 H 198 H 218 H Calcium Phosphorus Magnesium Iron TIBC AST ALT Alkaline Phosphatase Troponin T C-Reactive Protein Total Protein Albumin Triglycerides HDL Cholesterol Miscellaneous Test Crossmatch 08/27/17 08/28/17 08/28/17 17:27 02:13 06:46 WBC RBC Hgb Hct MCV MCH RDW Plt Count Lymph % (Auto) [place] % (Auto) [place] # Seg Neutrophils % Seg Neuts % (Manual) Lymphocytes % (Manual) Monocytes % (Manual) Nucleated RBC % Seg Neutrophils # Seg Neutrophils # Man Lymphocytes # (Manual) Monocytes # (Manual) Eosinophils # (Manual) Basophils # (Manual) PT INR POC ABG pH ABG pH POC ABG pCO2 POC ABG pO2 ABG pO2 ABG O2 Saturation ABG Base Excess ABG Hemoglobin Oxyhemoglobin Sodium Potassium Chloride Carbon Dioxide BUN Creatinine Glucose POC Glucose 151 H 155 H 230 H Calcium Phosphorus Magnesium Iron TIBC AST ALT Alkaline Phosphatase Troponin T C-Reactive Protein Total Protein Albumin Triglycerides HDL Cholesterol Miscellaneous Test Crossmatch 08/28/17 08/28/17 08/28/17 06:53 06:53 08:19 WBC 31.1 H RBC 2.26 L Hgb 6.8 L Hct 20.9 L MCV MCH RDW 21.7 H Plt Count Lymph % (Auto) [place] % (Auto) [place] # Seg Neutrophils % Seg Neuts % (Manual) 83.0 H Lymphocytes % (Manual) 4.0 L Monocytes % (Manual) Nucleated RBC % Seg Neutrophils # Seg Neutrophils # Man 25.8 H Lymphocytes # (Manual) Monocytes # (Manual) Eosinophils # (Manual) Basophils # (Manual) PT INR POC ABG pH ABG pH POC ABG pCO2 POC ABG pO2 ABG pO2 ABG O2 Saturation ABG Base Excess ABG Hemoglobin Oxyhemoglobin Sodium Potassium Chloride Carbon Dioxide BUN 81 H Creatinine 3.4 H Glucose 218 H POC Glucose 239 H Calcium Phosphorus 4.90 H Magnesium Iron TIBC AST ALT Alkaline Phosphatase Troponin T C-Reactive Protein Total Protein Albumin Triglycerides HDL Cholesterol Miscellaneous Test Crossmatch 08/28/17 08/28/17 08/28/17 11:56 13:05 13:29 WBC RBC Hgb Hct MCV MCH RDW Plt Count Lymph % (Auto) [place] % (Auto) [place] # Seg Neutrophils % Seg Neuts % (Manual) Lymphocytes % (Manual) Monocytes % (Manual) Nucleated RBC % Seg Neutrophils # Seg Neutrophils # Man Lymphocytes # (Manual) Monocytes # (Manual) Eosinophils # (Manual) Basophils # (Manual) PT 16.7 H INR 1.29 H POC ABG pH ABG pH POC ABG pCO2 POC ABG pO2 338 H ABG pO2 ABG O2 Saturation ABG Base Excess ABG Hemoglobin Oxyhemoglobin Sodium Potassium Chloride Carbon Dioxide BUN Creatinine Glucose POC Glucose Calcium Phosphorus Magnesium Iron TIBC AST ALT Alkaline Phosphatase Troponin T C-Reactive Protein Total Protein Albumin Triglycerides HDL Cholesterol Miscellaneous Test Crossmatch See Detail 08/28/17 08/28/17 08/29/17 16:22 19:20 04:24 WBC RBC Hgb Hct MCV MCH RDW Plt Count Lymph % (Auto) [place] % (Auto) [place] # Seg Neutrophils % Seg Neuts % (Manual) Lymphocytes % (Manual) Monocytes % (Manual) Nucleated RBC % Seg Neutrophils # Seg Neutrophils # Man Lymphocytes # (Manual) Monocytes # (Manual) Eosinophils # (Manual) Basophils # (Manual) PT INR POC ABG pH 7.469 H ABG pH POC ABG pCO2 POC ABG pO2 240 H ABG pO2 ABG O2 Saturation ABG Base Excess ABG Hemoglobin Oxyhemoglobin Sodium Potassium Chloride Carbon Dioxide BUN Creatinine Glucose POC Glucose 209 H 195 H Calcium Phosphorus Magnesium Iron TIBC AST ALT Alkaline Phosphatase Troponin T C-Reactive Protein Total Protein Albumin Triglycerides HDL Cholesterol Miscellaneous Test Crossmatch 08/29/17 08/29/17 08/29/17 04:30 04:30 12:07 WBC 44.9 H* RBC Hgb Hct MCV MCH RDW 23.1 H Plt Count Lymph % (Auto) [place] % (Auto) [place] # Seg Neutrophils % Seg Neuts % (Manual) 38.0 L Lymphocytes % (Manual) 10.0 L Monocytes % (Manual) 10.0 H Nucleated RBC % 6.0 H Seg Neutrophils # Seg Neutrophils # Man 17.1 H Lymphocytes # (Manual) Monocytes # (Manual) 4.5 H Eosinophils # (Manual) Basophils # (Manual) PT INR POC ABG pH ABG pH POC ABG pCO2 POC ABG pO2 ABG pO2 ABG O2 Saturation ABG Base Excess ABG Hemoglobin Oxyhemoglobin Sodium Potassium Chloride Carbon Dioxide BUN 61 H Creatinine 2.4 H Glucose 226 H POC Glucose 200 H Calcium Phosphorus Magnesium Iron TIBC AST ALT Alkaline Phosphatase Troponin T C-Reactive Protein Total Protein Albumin Triglycerides HDL Cholesterol Miscellaneous Test Crossmatch 08/29/17 08/29/17 08/29/17 12:30 12:30 17:23 WBC RBC Hgb Hct MCV MCH RDW Plt Count Lymph % (Auto) [place] % (Auto) [place] # Seg Neutrophils % Seg Neuts % (Manual) Lymphocytes % (Manual) Monocytes % (Manual) Nucleated RBC % Seg Neutrophils # Seg Neutrophils # Man Lymphocytes # (Manual) Monocytes # (Manual) Eosinophils # (Manual) Basophils # (Manual) PT INR POC ABG pH ABG pH POC ABG pCO2 POC ABG pO2 ABG pO2 ABG O2 Saturation ABG Base Excess ABG Hemoglobin Oxyhemoglobin Sodium Potassium Chloride Carbon Dioxide BUN Creatinine Glucose POC Glucose 270 H Calcium Phosphorus Magnesium Iron TIBC AST ALT Alkaline Phosphatase Troponin T C-Reactive Protein 19.10 H Total Protein Albumin Triglycerides HDL Cholesterol Miscellaneous Test Flexitest 1 H Crossmatch 08/30/17 08/30/17 08/30/17 00:10 01:30 03:31 WBC RBC Hgb Hct MCV MCH RDW Plt Count Lymph % (Auto) [place] % (Auto) [place] # Seg Neutrophils % Seg Neuts % (Manual) Lymphocytes % (Manual) Monocytes % (Manual) Nucleated RBC % Seg Neutrophils # Seg Neutrophils # Man Lymphocytes # (Manual) Monocytes # (Manual) Eosinophils # (Manual) Basophils # (Manual) PT INR POC ABG pH 7.168 L 7.335 L ABG pH POC ABG pCO2 72.8 H POC ABG pO2 257 H 117 H ABG pO2 ABG O2 Saturation ABG Base Excess ABG Hemoglobin Oxyhemoglobin Sodium Potassium Chloride Carbon Dioxide BUN Creatinine Glucose POC Glucose 245 H Calcium Phosphorus Magnesium Iron TIBC AST ALT Alkaline Phosphatase Troponin T C-Reactive Protein Total Protein Albumin Triglycerides HDL Cholesterol Miscellaneous Test Crossmatch 08/30/17 08/30/17 08/30/17 05:20 05:20 05:20 WBC 40.9 H* RBC 3.64 L Hgb Hct MCV MCH RDW 24.3 H Plt Count Lymph % (Auto) [place] % (Auto) [place] # Seg Neutrophils % Seg Neuts % (Manual) 80.0 H Lymphocytes % (Manual) 3.0 L Monocytes % (Manual) Nucleated RBC % 1.0 H Seg Neutrophils # Seg Neutrophils # Man 32.7 H Lymphocytes # (Manual) Monocytes # (Manual) Eosinophils # (Manual) Basophils # (Manual) PT INR POC ABG pH ABG pH POC ABG pCO2 POC ABG pO2 ABG pO2 ABG O2 Saturation ABG Base Excess ABG Hemoglobin Oxyhemoglobin Sodium Potassium Chloride Carbon Dioxide BUN 83 H Creatinine 2.9 H Glucose 334 H POC Glucose 309 H Calcium Phosphorus Magnesium Iron TIBC AST ALT Alkaline Phosphatase Troponin T C-Reactive Protein Total Protein Albumin Triglycerides HDL Cholesterol Miscellaneous Test Crossmatch 08/30/17 08/30/17 08/31/17 12:18 17:36 00:17 WBC RBC Hgb Hct MCV MCH RDW Plt Count Lymph % (Auto) [place] % (Auto) [place] # Seg Neutrophils % Seg Neuts % (Manual) Lymphocytes % (Manual) Monocytes % (Manual) Nucleated RBC % Seg Neutrophils # Seg Neutrophils # Man Lymphocytes # (Manual) Monocytes # (Manual) Eosinophils # (Manual) Basophils # (Manual) PT INR POC ABG pH ABG pH POC ABG pCO2 POC ABG pO2 ABG pO2 ABG O2 Saturation ABG Base Excess ABG Hemoglobin Oxyhemoglobin Sodium Potassium Chloride Carbon Dioxide BUN Creatinine Glucose POC Glucose 273 H 293 H 360 H Calcium Phosphorus Magnesium Iron TIBC AST ALT Alkaline Phosphatase Troponin T C-Reactive Protein Total Protein Albumin Triglycerides HDL Cholesterol Miscellaneous Test Crossmatch 08/31/17 08/31/17 08/31/17 05:30 05:30 05:32 WBC 29.9 H RBC 2.89 L Hgb 8.2 L Hct 24.7 L D MCV MCH RDW 24.4 H Plt Count Lymph % (Auto) [place] % (Auto) [place] # Seg Neutrophils % Seg Neuts % (Manual) Lymphocytes % (Manual) 2.0 L Monocytes % (Manual) Nucleated RBC % 2.0 H Seg Neutrophils # Seg Neutrophils # Man 18.5 H Lymphocytes # (Manual) 0.6 L Monocytes # (Manual) 0.9 H Eosinophils # (Manual) Basophils # (Manual) PT INR POC ABG pH ABG pH POC ABG pCO2 POC ABG pO2 ABG pO2 ABG O2 Saturation ABG Base Excess ABG Hemoglobin Oxyhemoglobin Sodium Potassium Chloride Carbon Dioxide BUN 62 H Creatinine 2.2 H Glucose 245 H POC Glucose 257 H Calcium Phosphorus 2.10 L D Magnesium 1.60 L Iron TIBC AST ALT Alkaline Phosphatase Troponin T C-Reactive Protein Total Protein Albumin Triglycerides HDL Cholesterol Miscellaneous Test Crossmatch 08/31/17 08/31/17 08/31/17 11:56 12:05 18:14 WBC 32.5 H RBC 3.19 L Hgb 8.8 L Hct 27.9 L MCV MCH RDW 24.9 H Plt Count Lymph % (Auto) [place] % (Auto) [place] # Seg Neutrophils % Seg Neuts % (Manual) Lymphocytes % (Manual) 1.0 L Monocytes % (Manual) 12.0 H Nucleated RBC % 1.0 H Seg Neutrophils # Seg Neutrophils # Man 13.3 H Lymphocytes # (Manual) 0.3 L Monocytes # (Manual) 3.9 H Eosinophils # (Manual) Basophils # (Manual) PT INR POC ABG pH ABG pH POC ABG pCO2 POC ABG pO2 ABG pO2 ABG O2 Saturation ABG Base Excess ABG Hemoglobin Oxyhemoglobin Sodium Potassium Chloride Carbon Dioxide BUN Creatinine Glucose POC Glucose 245 H Calcium Phosphorus Magnesium Iron TIBC AST ALT Alkaline Phosphatase Troponin T C-Reactive Protein Total Protein Albumin Triglycerides HDL Cholesterol Miscellaneous Test Crossmatch See Detail 08/31/17 08/31/17 08/31/17 18:14 18:15 18:22 WBC RBC Hgb Hct MCV MCH RDW Plt Count Lymph % (Auto) [place] % (Auto) [place] # Seg Neutrophils % Seg Neuts % (Manual) Lymphocytes % (Manual) Monocytes % (Manual) Nucleated RBC % Seg Neutrophils # Seg Neutrophils # Man Lymphocytes # (Manual) Monocytes # (Manual) Eosinophils # (Manual) Basophils # (Manual) PT 15.1 H INR POC ABG pH ABG pH POC ABG pCO2 POC ABG pO2 ABG pO2 ABG O2 Saturation ABG Base Excess ABG Hemoglobin Oxyhemoglobin Sodium 136 L Potassium Chloride Carbon Dioxide 21 L BUN 69 H Creatinine 2.3 H Glucose 227 H POC Glucose 240 H Calcium Phosphorus 2.40 L Magnesium 1.50 L Iron TIBC AST 143 H ALT 114 H Alkaline Phosphatase 267 H Troponin T C-Reactive Protein Total Protein 4.1 L Albumin 1.8 L Triglycerides HDL Cholesterol Miscellaneous Test Crossmatch 08/31/17 09/01/17 09/01/17 23:53 05:00 05:00 WBC 33.9 H RBC 2.85 L Hgb 7.8 L Hct 24.8 L MCV MCH 27 L RDW 23.9 H Plt Count Lymph % (Auto) [place] % (Auto) [place] # Seg Neutrophils % Seg Neuts % (Manual) Lymphocytes % (Manual) 5.0 L Monocytes % (Manual) Nucleated RBC % Seg Neutrophils # Seg Neutrophils # Man 23.1 H Lymphocytes # (Manual) Monocytes # (Manual) Eosinophils # (Manual) Basophils # (Manual) PT INR POC ABG pH ABG pH POC ABG pCO2 POC ABG pO2 ABG pO2 ABG O2 Saturation ABG Base Excess ABG Hemoglobin Oxyhemoglobin Sodium Potassium Chloride Carbon Dioxide BUN 51 H Creatinine 1.8 H Glucose 195 H POC Glucose 301 H Calcium Phosphorus 1.70 L D Magnesium 1.60 L Iron TIBC AST 80 H ALT 82 H Alkaline Phosphatase 243 H Troponin T C-Reactive Protein Total Protein 4.2 L Albumin 1.7 L Triglycerides HDL Cholesterol Miscellaneous Test Crossmatch 09/01/17 09/01/17 09/01/17 05:20 05:47 11:37 WBC RBC Hgb Hct MCV MCH RDW Plt Count Lymph % (Auto) [place] % (Auto) [place] # Seg Neutrophils % Seg Neuts % (Manual) Lymphocytes % (Manual) Monocytes % (Manual) Nucleated RBC % Seg Neutrophils # Seg Neutrophils # Man Lymphocytes # (Manual) Monocytes # (Manual) Eosinophils # (Manual) Basophils # (Manual) PT INR POC ABG pH ABG pH 7.348 L POC ABG pCO2 POC ABG pO2 ABG pO2 70.2 L ABG O2 Saturation ABG Base Excess ABG Hemoglobin 7.5 L Oxyhemoglobin Sodium Potassium Chloride Carbon Dioxide BUN Creatinine Glucose POC Glucose 230 H 254 H Calcium Phosphorus Magnesium Iron TIBC AST ALT Alkaline Phosphatase Troponin T C-Reactive Protein Total Protein Albumin Triglycerides HDL Cholesterol Miscellaneous Test Crossmatch 09/01/17 09/01/17 09/02/17 17:39 23:14 04:55 WBC RBC Hgb Hct MCV MCH RDW Plt Count Lymph % (Auto) [place] % (Auto) [place] # Seg Neutrophils % Seg Neuts % (Manual) Lymphocytes % (Manual) Monocytes % (Manual) Nucleated RBC % Seg Neutrophils # Seg Neutrophils # Man Lymphocytes # (Manual) Monocytes # (Manual) Eosinophils # (Manual) Basophils # (Manual) PT INR POC ABG pH ABG pH POC ABG pCO2 POC ABG pO2 ABG pO2 124.8 H ABG O2 Saturation ABG Base Excess -2.9 L ABG Hemoglobin 5.8 L Oxyhemoglobin Sodium Potassium Chloride Carbon Dioxide BUN Creatinine Glucose POC Glucose 297 H 291 H Calcium Phosphorus Magnesium Iron TIBC AST ALT Alkaline Phosphatase Troponin T C-Reactive Protein Total Protein Albumin Triglycerides HDL Cholesterol Miscellaneous Test Crossmatch 09/02/17 09/02/17 09/02/17 05:31 06:10 11:58 WBC RBC Hgb Hct MCV MCH RDW Plt Count Lymph % (Auto) [place] % (Auto) [place] # Seg Neutrophils % Seg Neuts % (Manual) Lymphocytes % (Manual) Monocytes % (Manual) Nucleated RBC % Seg Neutrophils # Seg Neutrophils # Man Lymphocytes # (Manual) Monocytes # (Manual) Eosinophils # (Manual) Basophils # (Manual) PT INR POC ABG pH ABG pH POC ABG pCO2 POC ABG pO2 ABG pO2 ABG O2 Saturation ABG Base Excess ABG Hemoglobin Oxyhemoglobin Sodium Potassium Chloride Carbon Dioxide BUN 68 H Creatinine 2.2 H Glucose 369 H POC Glucose 245 H 333 H Calcium 8.2 L Phosphorus Magnesium Iron TIBC AST ALT Alkaline Phosphatase Troponin T C-Reactive Protein Total Protein Albumin Triglycerides HDL Cholesterol Miscellaneous Test Crossmatch 09/02/17 09/02/17 09/03/17 15:37 23:50 04:00 WBC RBC Hgb Hct MCV MCH RDW Plt Count Lymph % (Auto) [place] % (Auto) [place] # Seg Neutrophils % Seg Neuts % (Manual) Lymphocytes % (Manual) Monocytes % (Manual) Nucleated RBC % Seg Neutrophils # Seg Neutrophils # Man Lymphocytes # (Manual) Monocytes # (Manual) Eosinophils # (Manual) Basophils # (Manual) PT INR POC ABG pH ABG pH POC ABG pCO2 POC ABG pO2 ABG pO2 ABG O2 Saturation ABG Base Excess ABG Hemoglobin Oxyhemoglobin Sodium Potassium Chloride Carbon Dioxide BUN 59 H Creatinine 1.9 H Glucose 231 H POC Glucose 314 H 240 H Calcium 8.0 L Phosphorus Magnesium Iron TIBC AST ALT Alkaline Phosphatase 265 H Troponin T C-Reactive Protein Total Protein 4.4 L Albumin 1.7 L Triglycerides 180 H HDL Cholesterol Miscellaneous Test Crossmatch 09/03/17 09/03/17 09/03/17 05:00 05:32 11:52 WBC 41.5 H* RBC 2.46 L Hgb 6.9 L Hct 21.3 L MCV MCH RDW 24.9 H Plt Count Lymph % (Auto) [place] % (Auto) [place] # Seg Neutrophils % Seg Neuts % (Manual) Lymphocytes % (Manual) 3.0 L Monocytes % (Manual) 9.5 H Nucleated RBC % 1.5 H Seg Neutrophils # Seg Neutrophils # Man 28.8 H Lymphocytes # (Manual) Monocytes # (Manual) 3.9 H Eosinophils # (Manual) Basophils # (Manual) PT INR POC ABG pH ABG pH POC ABG pCO2 POC ABG pO2 ABG pO2 ABG O2 Saturation ABG Base Excess ABG Hemoglobin Oxyhemoglobin Sodium Potassium Chloride Carbon Dioxide BUN Creatinine Glucose POC Glucose 188 H 285 H Calcium Phosphorus Magnesium Iron TIBC AST ALT Alkaline Phosphatase Troponin T C-Reactive Protein Total Protein Albumin Triglycerides HDL Cholesterol Miscellaneous Test Crossmatch 09/03/17 09/03/17 09/03/17 16:55 17:44 23:56 WBC RBC Hgb Hct MCV MCH RDW Plt Count Lymph % (Auto) [place] % (Auto) [place] # Seg Neutrophils % Seg Neuts % (Manual) Lymphocytes % (Manual) Monocytes % (Manual) Nucleated RBC % Seg Neutrophils # Seg Neutrophils # Man Lymphocytes # (Manual) Monocytes # (Manual) Eosinophils # (Manual) Basophils # (Manual) PT INR POC ABG pH ABG pH POC ABG pCO2 POC ABG pO2 ABG pO2 ABG O2 Saturation ABG Base Excess ABG Hemoglobin Oxyhemoglobin Sodium Potassium Chloride Carbon Dioxide BUN Creatinine Glucose POC Glucose 217 H 193 H Calcium Phosphorus Magnesium Iron TIBC AST ALT Alkaline Phosphatase Troponin T C-Reactive Protein Total Protein Albumin Triglycerides HDL Cholesterol Miscellaneous Test Crossmatch See Detail 09/03/17 09/04/17 09/04/17 Unknown 03:47 04:32 WBC 44.7 H* RBC 3.12 L Hgb 8.7 L Hct 26.7 L MCV MCH RDW 23.5 H Plt Count Lymph % (Auto) [place] % (Auto) [place] # Seg Neutrophils % Seg Neuts % (Manual) Lymphocytes % (Manual) 4.0 L Monocytes % (Manual) Nucleated RBC % 2.0 H Seg Neutrophils # Seg Neutrophils # Man 30.8 H Lymphocytes # (Manual) Monocytes # (Manual) 2.2 H Eosinophils # (Manual) Basophils # (Manual) PT INR POC ABG pH ABG pH POC ABG pCO2 POC ABG pO2 ABG pO2 133.4 H 135.0 H ABG O2 Saturation ABG Base Excess -2.5 L ABG Hemoglobin 5.8 L 7.9 L Oxyhemoglobin Sodium Potassium Chloride Carbon Dioxide BUN Creatinine Glucose POC Glucose Calcium Phosphorus Magnesium Iron TIBC AST ALT Alkaline Phosphatase Troponin T C-Reactive Protein Total Protein Albumin Triglycerides HDL Cholesterol Miscellaneous Test Crossmatch 09/04/17 09/04/17 09/04/17 04:32 05:48 10:43 WBC RBC Hgb Hct MCV MCH RDW Plt Count Lymph % (Auto) [place] % (Auto) [place] # Seg Neutrophils % Seg Neuts % (Manual) Lymphocytes % (Manual) Monocytes % (Manual) Nucleated RBC % Seg Neutrophils # Seg Neutrophils # Man Lymphocytes # (Manual) Monocytes # (Manual) Eosinophils # (Manual) Basophils # (Manual) PT INR POC ABG pH ABG pH POC ABG pCO2 POC ABG pO2 ABG pO2 ABG O2 Saturation ABG Base Excess ABG Hemoglobin Oxyhemoglobin Sodium 136 L Potassium 5.2 H D Chloride 94.2 L Carbon Dioxide BUN 71 H Creatinine 2.3 H Glucose 235 H POC Glucose 329 H Calcium 8.3 L Phosphorus Magnesium Iron TIBC AST ALT Alkaline Phosphatase Troponin T C-Reactive Protein Total Protein Albumin Triglycerides HDL Cholesterol Miscellaneous Test Flexitest 1 H Crossmatch 09/04/17 09/04/17 09/05/17 12:38 17:30 00:15 WBC RBC Hgb Hct MCV MCH RDW Plt Count Lymph % (Auto) [place] % (Auto) [place] # Seg Neutrophils % Seg Neuts % (Manual) Lymphocytes % (Manual) Monocytes % (Manual) Nucleated RBC % Seg Neutrophils # Seg Neutrophils # Man Lymphocytes # (Manual) Monocytes # (Manual) Eosinophils # (Manual) Basophils # (Manual) PT INR POC ABG pH ABG pH POC ABG pCO2 POC ABG pO2 ABG pO2 ABG O2 Saturation ABG Base Excess ABG Hemoglobin Oxyhemoglobin Sodium Potassium Chloride Carbon Dioxide BUN Creatinine Glucose POC Glucose 444 H 331 H 362 H Calcium Phosphorus Magnesium Iron TIBC AST ALT Alkaline Phosphatase Troponin T C-Reactive Protein Total Protein Albumin Triglycerides HDL Cholesterol Miscellaneous Test Crossmatch 09/05/17 09/05/17 09/05/17 03:55 03:55 12:12 WBC 35.3 H RBC 2.87 L Hgb 8.1 L Hct 24.6 L MCV MCH RDW 23.3 H Plt Count Lymph % (Auto) [place] % (Auto) [place] # Seg Neutrophils % Seg Neuts % (Manual) 89.5 H Lymphocytes % (Manual) 3.0 L Monocytes % (Manual) Nucleated RBC % 2.5 H Seg Neutrophils # Seg Neutrophils # Man 31.6 H Lymphocytes # (Manual) 1.1 L Monocytes # (Manual) Eosinophils # (Manual) Basophils # (Manual) PT INR POC ABG pH ABG pH POC ABG pCO2 POC ABG pO2 ABG pO2 ABG O2 Saturation ABG Base Excess ABG Hemoglobin Oxyhemoglobin Sodium 136 L Potassium Chloride 94.7 L Carbon Dioxide BUN 55 H Creatinine 1.8 H Glucose 193 H POC Glucose 344 H Calcium 8.1 L Phosphorus Magnesium Iron TIBC AST ALT Alkaline Phosphatase Troponin T C-Reactive Protein Total Protein Albumin Triglycerides HDL Cholesterol Miscellaneous Test Crossmatch 09/05/17 09/05/17 09/05/17 14:32 15:32 16:41 WBC RBC Hgb Hct MCV MCH RDW Plt Count Lymph % (Auto) [place] % (Auto) [place] # Seg Neutrophils % Seg Neuts % (Manual) Lymphocytes % (Manual) Monocytes % (Manual) Nucleated RBC % Seg Neutrophils # Seg Neutrophils # Man Lymphocytes # (Manual) Monocytes # (Manual) Eosinophils # (Manual) Basophils # (Manual) PT INR POC ABG pH ABG pH POC ABG pCO2 POC ABG pO2 ABG pO2 ABG O2 Saturation ABG Base Excess ABG Hemoglobin Oxyhemoglobin Sodium Potassium Chloride Carbon Dioxide BUN Creatinine Glucose POC Glucose 265 H 145 H 188 H Calcium Phosphorus Magnesium Iron TIBC AST ALT Alkaline Phosphatase Troponin T C-Reactive Protein Total Protein Albumin Triglycerides HDL Cholesterol Miscellaneous Test Crossmatch 09/05/17 09/05/17 09/05/17 17:28 18:38 20:10 WBC RBC Hgb Hct MCV MCH RDW Plt Count Lymph % (Auto) [place] % (Auto) [place] # Seg Neutrophils % Seg Neuts % (Manual) Lymphocytes % (Manual) Monocytes % (Manual) Nucleated RBC % Seg Neutrophils # Seg Neutrophils # Man Lymphocytes # (Manual) Monocytes # (Manual) Eosinophils # (Manual) Basophils # (Manual) PT INR POC ABG pH ABG pH POC ABG pCO2 POC ABG pO2 ABG pO2 ABG O2 Saturation ABG Base Excess ABG Hemoglobin Oxyhemoglobin Sodium Potassium Chloride Carbon Dioxide BUN Creatinine Glucose POC Glucose 246 H 271 H 165 H Calcium Phosphorus Magnesium Iron TIBC AST ALT Alkaline Phosphatase Troponin T C-Reactive Protein Total Protein Albumin Triglycerides HDL Cholesterol Miscellaneous Test Crossmatch 09/05/17 09/05/17 09/06/17 21:06 23:07 00:10 WBC RBC Hgb Hct MCV MCH RDW Plt Count Lymph % (Auto) [place] % (Auto) [place] # Seg Neutrophils % Seg Neuts % (Manual) Lymphocytes % (Manual) Monocytes % (Manual) Nucleated RBC % Seg Neutrophils # Seg Neutrophils # Man Lymphocytes # (Manual) Monocytes # (Manual) Eosinophils # (Manual) Basophils # (Manual) PT INR POC ABG pH ABG pH POC ABG pCO2 POC ABG pO2 ABG pO2 ABG O2 Saturation ABG Base Excess ABG Hemoglobin Oxyhemoglobin Sodium Potassium Chloride Carbon Dioxide BUN Creatinine Glucose POC Glucose 134 H 135 H 147 H Calcium Phosphorus Magnesium Iron TIBC AST ALT Alkaline Phosphatase Troponin T C-Reactive Protein Total Protein Albumin Triglycerides HDL Cholesterol Miscellaneous Test Crossmatch 09/06/17 09/06/17 09/06/17 01:08 02:01 03:08 WBC RBC Hgb Hct MCV MCH RDW Plt Count Lymph % (Auto) [place] % (Auto) [place] # Seg Neutrophils % Seg Neuts % (Manual) Lymphocytes % (Manual) Monocytes % (Manual) Nucleated RBC % Seg Neutrophils # Seg Neutrophils # Man Lymphocytes # (Manual) Monocytes # (Manual) Eosinophils # (Manual) Basophils # (Manual) PT INR POC ABG pH ABG pH POC ABG pCO2 POC ABG pO2 ABG pO2 ABG O2 Saturation ABG Base Excess ABG Hemoglobin Oxyhemoglobin Sodium Potassium Chloride Carbon Dioxide BUN Creatinine Glucose POC Glucose 133 H 146 H 135 H Calcium Phosphorus Magnesium Iron TIBC AST ALT Alkaline Phosphatase Troponin T C-Reactive Protein Total Protein Albumin Triglycerides HDL Cholesterol Miscellaneous Test Crossmatch 09/06/17 09/06/17 09/06/17 05:30 05:30 05:30 WBC 38.6 H RBC 2.95 L Hgb 8.3 L Hct 25.3 L MCV MCH RDW 22.2 H Plt Count Lymph % (Auto) [place] % (Auto) [place] # Seg Neutrophils % Seg Neuts % (Manual) Lymphocytes % (Manual) 2.0 L Monocytes % (Manual) Nucleated RBC % 5.0 H Seg Neutrophils # Seg Neutrophils # Man 25.9 H Lymphocytes # (Manual) 0.8 L Monocytes # (Manual) 1.9 H Eosinophils # (Manual) Basophils # (Manual) PT INR POC ABG pH ABG pH POC ABG pCO2 POC ABG pO2 ABG pO2 ABG O2 Saturation ABG Base Excess ABG Hemoglobin Oxyhemoglobin Sodium 135 L Potassium Chloride 93.5 L Carbon Dioxide BUN 82 H Creatinine 2.3 H Glucose 148 H POC Glucose Calcium Phosphorus Magnesium Iron TIBC AST ALT Alkaline Phosphatase Troponin T C-Reactive Protein 2.80 H Total Protein Albumin Triglycerides HDL Cholesterol Miscellaneous Test Crossmatch 09/06/17 09/06/17 09/06/17 05:48 08:04 09:06 WBC RBC Hgb Hct MCV MCH RDW Plt Count Lymph % (Auto) [place] % (Auto) [place] # Seg Neutrophils % Seg Neuts % (Manual) Lymphocytes % (Manual) Monocytes % (Manual) Nucleated RBC % Seg Neutrophils # Seg Neutrophils # Man Lymphocytes # (Manual) Monocytes # (Manual) Eosinophils # (Manual) Basophils # (Manual) PT INR POC ABG pH ABG pH POC ABG pCO2 POC ABG pO2 ABG pO2 ABG O2 Saturation ABG Base Excess ABG Hemoglobin Oxyhemoglobin Sodium Potassium Chloride Carbon Dioxide BUN Creatinine Glucose POC Glucose 152 H 164 H 172 H Calcium Phosphorus Magnesium Iron TIBC AST ALT Alkaline Phosphatase Troponin T C-Reactive Protein Total Protein Albumin Triglycerides HDL Cholesterol Miscellaneous Test Crossmatch 09/06/17 09/06/17 09/06/17 09:57 10:19 10:57 WBC RBC Hgb Hct MCV MCH RDW Plt Count Lymph % (Auto) [place] % (Auto) [place] # Seg Neutrophils % Seg Neuts % (Manual) Lymphocytes % (Manual) Monocytes % (Manual) Nucleated RBC % Seg Neutrophils # Seg Neutrophils # Man Lymphocytes # (Manual) Monocytes # (Manual) Eosinophils # (Manual) Basophils # (Manual) PT INR POC ABG pH ABG pH POC ABG pCO2 POC ABG pO2 ABG pO2 ABG O2 Saturation ABG Base Excess ABG Hemoglobin Oxyhemoglobin Sodium Potassium Chloride Carbon Dioxide BUN Creatinine Glucose POC Glucose 186 H 162 H Calcium Phosphorus Magnesium Iron TIBC AST ALT Alkaline Phosphatase Troponin T C-Reactive Protein Total Protein Albumin Triglycerides HDL Cholesterol Miscellaneous Test Flexitest 1 H Crossmatch 09/06/17 09/06/17 09/06/17 13:12 13:40 17:36 WBC RBC Hgb 8.9 L Hct 28.5 L MCV MCH RDW Plt Count Lymph % (Auto) [place] % (Auto) [place] # Seg Neutrophils % Seg Neuts % (Manual) Lymphocytes % (Manual) Monocytes % (Manual) Nucleated RBC % Seg Neutrophils # Seg Neutrophils # Man Lymphocytes # (Manual) Monocytes # (Manual) Eosinophils # (Manual) Basophils # (Manual) PT INR POC ABG pH ABG pH POC ABG pCO2 POC ABG pO2 ABG pO2 ABG O2 Saturation ABG Base Excess ABG Hemoglobin Oxyhemoglobin Sodium Potassium Chloride Carbon Dioxide BUN Creatinine Glucose POC Glucose 166 H 161 H Calcium Phosphorus Magnesium Iron TIBC AST ALT Alkaline Phosphatase Troponin T C-Reactive Protein Total Protein Albumin Triglycerides HDL Cholesterol Miscellaneous Test Crossmatch 09/07/17 09/07/17 09/07/17 00:13 03:50 03:50 WBC 47.0 H* RBC 2.81 L Hgb 8.1 L Hct 24.1 L MCV MCH RDW 22.5 H Plt Count Lymph % (Auto) [place] % (Auto) [place] # Seg Neutrophils % Seg Neuts % (Manual) Lymphocytes % (Manual) 9.0 L Monocytes % (Manual) Nucleated RBC % 6.0 H Seg Neutrophils # Seg Neutrophils # Man 27.3 H Lymphocytes # (Manual) Monocytes # (Manual) 0.9 H Eosinophils # (Manual) 1.9 H Basophils # (Manual) PT INR POC ABG pH ABG pH POC ABG pCO2 POC ABG pO2 ABG pO2 ABG O2 Saturation ABG Base Excess ABG Hemoglobin Oxyhemoglobin Sodium 136 L Potassium Chloride 96.3 L Carbon Dioxide BUN 61 H Creatinine 1.7 H Glucose 132 H POC Glucose 183 H Calcium 7.8 L Phosphorus Magnesium Iron TIBC AST ALT Alkaline Phosphatase Troponin T C-Reactive Protein Total Protein Albumin Triglycerides HDL Cholesterol Miscellaneous Test Crossmatch 09/07/17 09/07/17 09/07/17 05:12 05:23 11:48 WBC RBC Hgb Hct MCV MCH RDW Plt Count Lymph % (Auto) [place] % (Auto) [place] # Seg Neutrophils % Seg Neuts % (Manual) Lymphocytes % (Manual) Monocytes % (Manual) Nucleated RBC % Seg Neutrophils # Seg Neutrophils # Man Lymphocytes # (Manual) Monocytes # (Manual) Eosinophils # (Manual) Basophils # (Manual) PT INR POC ABG pH ABG pH POC ABG pCO2 POC ABG pO2 ABG pO2 ABG O2 Saturation ABG Base Excess ABG Hemoglobin 7.7 L Oxyhemoglobin 94.8 L Sodium Potassium Chloride Carbon Dioxide BUN Creatinine Glucose POC Glucose 162 H 200 H Calcium Phosphorus Magnesium Iron TIBC AST ALT Alkaline Phosphatase Troponin T C-Reactive Protein Total Protein Albumin Triglycerides HDL Cholesterol Miscellaneous Test Crossmatch 09/07/17 09/07/17 09/08/17 17:07 18:21 00:06 WBC RBC Hgb Hct MCV MCH RDW Plt Count Lymph % (Auto) [place] % (Auto) [place] # Seg Neutrophils % Seg Neuts % (Manual) Lymphocytes % (Manual) Monocytes % (Manual) Nucleated RBC % Seg Neutrophils # Seg Neutrophils # Man Lymphocytes # (Manual) Monocytes # (Manual) Eosinophils # (Manual) Basophils # (Manual) PT INR POC ABG pH ABG pH POC ABG pCO2 POC ABG pO2 ABG pO2 ABG O2 Saturation ABG Base Excess ABG Hemoglobin Oxyhemoglobin Sodium Potassium Chloride Carbon Dioxide BUN Creatinine Glucose POC Glucose 181 H 168 H Calcium Phosphorus Magnesium Iron TIBC AST ALT Alkaline Phosphatase Troponin T C-Reactive Protein Total Protein Albumin Triglycerides HDL Cholesterol Miscellaneous Test Crossmatch See Detail 09/08/17 09/08/17 09/08/17 04:05 04:05 04:41 WBC 49.7 H* RBC 2.58 L Hgb 7.3 L Hct 22.7 L MCV MCH RDW 22.5 H Plt Count Lymph % (Auto) [place] % (Auto) [place] # Seg Neutrophils % Seg Neuts % (Manual) 90.5 H Lymphocytes % (Manual) 1.5 L Monocytes % (Manual) Nucleated RBC % Seg Neutrophils # Seg Neutrophils # Man 45.0 H Lymphocytes # (Manual) 0.7 L Monocytes # (Manual) 1.7 H Eosinophils # (Manual) Basophils # (Manual) PT INR POC ABG pH ABG pH POC ABG pCO2 POC ABG pO2 ABG pO2 ABG O2 Saturation ABG Base Excess ABG Hemoglobin Oxyhemoglobin Sodium 132 L Potassium Chloride 92.1 L Carbon Dioxide BUN 82 H Creatinine 2.2 H Glucose 162 H POC Glucose 235 H Calcium 8.3 L Phosphorus 5.20 H D Magnesium Iron TIBC AST ALT Alkaline Phosphatase 199 H Troponin T C-Reactive Protein Total Protein 4.5 L Albumin 1.7 L Triglycerides HDL Cholesterol Miscellaneous Test Crossmatch 09/08/17 09/08/17 09/08/17 09:21 11:52 17:38 WBC RBC Hgb Hct MCV MCH RDW Plt Count Lymph % (Auto) [place] % (Auto) [place] # Seg Neutrophils % Seg Neuts % (Manual) Lymphocytes % (Manual) Monocytes % (Manual) Nucleated RBC % Seg Neutrophils # Seg Neutrophils # Man Lymphocytes # (Manual) Monocytes # (Manual) Eosinophils # (Manual) Basophils # (Manual) PT INR POC ABG pH ABG pH POC ABG pCO2 POC ABG pO2 ABG pO2 218.5 H ABG O2 Saturation 99.3 H ABG Base Excess -3.5 L ABG Hemoglobin 7.7 L Oxyhemoglobin Sodium Potassium Chloride Carbon Dioxide BUN Creatinine Glucose POC Glucose 220 H 194 H Calcium Phosphorus Magnesium Iron TIBC AST ALT Alkaline Phosphatase Troponin T C-Reactive Protein Total Protein Albumin Triglycerides HDL Cholesterol Miscellaneous Test Crossmatch 09/09/17 09/09/17 09/09/17 00:24 03:37 03:37 WBC 33.5 H RBC 2.36 L Hgb 6.7 L Hct 20.9 L MCV MCH RDW 22.7 H Plt Count Lymph % (Auto) [place] % (Auto) [place] # Seg Neutrophils % Seg Neuts % (Manual) Lymphocytes % (Manual) Monocytes % (Manual) Nucleated RBC % Seg Neutrophils # Seg Neutrophils # Man Lymphocytes # (Manual) Monocytes # (Manual) Eosinophils # (Manual) Basophils # (Manual) PT INR POC ABG pH ABG pH POC ABG pCO2 POC ABG pO2 ABG pO2 ABG O2 Saturation ABG Base Excess ABG Hemoglobin Oxyhemoglobin Sodium 132 L Potassium Chloride 91.6 L Carbon Dioxide 21 L BUN 101 H Creatinine 2.6 H Glucose 156 H POC Glucose 182 H Calcium 8.3 L Phosphorus 5.90 H Magnesium 2.60 H Iron TIBC AST ALT Alkaline Phosphatase Troponin T C-Reactive Protein Total Protein Albumin Triglycerides HDL Cholesterol Miscellaneous Test Crossmatch 09/09/17 09/09/17 09/09/17 05:29 12:03 18:05 WBC RBC Hgb Hct MCV MCH RDW Plt Count Lymph % (Auto) [place] % (Auto) [place] # Seg Neutrophils % Seg Neuts % (Manual) Lymphocytes % (Manual) Monocytes % (Manual) Nucleated RBC % Seg Neutrophils # Seg Neutrophils # Man Lymphocytes # (Manual) Monocytes # (Manual) Eosinophils # (Manual) Basophils # (Manual) PT INR POC ABG pH ABG pH POC ABG pCO2 POC ABG pO2 ABG pO2 ABG O2 Saturation ABG Base Excess ABG Hemoglobin Oxyhemoglobin Sodium Potassium Chloride Carbon Dioxide BUN Creatinine Glucose POC Glucose 168 H 143 H 173 H Calcium Phosphorus Magnesium Iron TIBC AST ALT Alkaline Phosphatase Troponin T C-Reactive Protein Total Protein Albumin Triglycerides HDL Cholesterol Miscellaneous Test Crossmatch 09/09/17 09/09/17 09/10/17 23:30 Unknown 05:04 WBC RBC Hgb Hct MCV MCH RDW Plt Count Lymph % (Auto) [place] % (Auto) [place] # Seg Neutrophils % Seg Neuts % (Manual) Lymphocytes % (Manual) Monocytes % (Manual) Nucleated RBC % Seg Neutrophils # Seg Neutrophils # Man Lymphocytes # (Manual) Monocytes # (Manual) Eosinophils # (Manual) Basophils # (Manual) PT INR POC ABG pH ABG pH 7.323 L POC ABG pCO2 POC ABG pO2 ABG pO2 94.1 H ABG O2 Saturation ABG Base Excess -4.8 L ABG Hemoglobin 8.0 L Oxyhemoglobin 94.9 L Sodium Potassium Chloride Carbon Dioxide BUN Creatinine Glucose POC Glucose 212 H 155 H Calcium Phosphorus Magnesium Iron TIBC AST ALT Alkaline Phosphatase Troponin T C-Reactive Protein Total Protein Albumin Triglycerides HDL Cholesterol Miscellaneous Test Crossmatch 09/10/17 09/10/17 09/10/17 07:00 09:55 12:22 WBC 24.7 H RBC 2.62 L Hgb 7.5 L Hct 22.5 L MCV MCH RDW 20.8 H Plt Count Lymph % (Auto) [place] % (Auto) [place] # Seg Neutrophils % Seg Neuts % (Manual) Lymphocytes % (Manual) Monocytes % (Manual) Nucleated RBC % Seg Neutrophils # Seg Neutrophils # Man Lymphocytes # (Manual) Monocytes # (Manual) Eosinophils # (Manual) Basophils # (Manual) PT INR POC ABG pH ABG pH POC ABG pCO2 POC ABG pO2 ABG pO2 ABG O2 Saturation ABG Base Excess ABG Hemoglobin Oxyhemoglobin Sodium Potassium Chloride 97.9 L Carbon Dioxide BUN 78 H Creatinine 2.0 H Glucose 126 H POC Glucose 183 H Calcium 8.2 L Phosphorus Magnesium Iron TIBC AST ALT Alkaline Phosphatase Troponin T C-Reactive Protein Total Protein Albumin Triglycerides HDL Cholesterol Miscellaneous Test Crossmatch 09/11/17 09/11/17 09/11/17 00:08 03:50 05:28 WBC 21.6 H RBC 2.52 L Hgb 7.4 L Hct 22.2 L MCV MCH RDW 21.5 H Plt Count Lymph % (Auto) [place] % (Auto) [place] # Seg Neutrophils % Seg Neuts % (Manual) 92.0 H Lymphocytes % (Manual) 3.0 L Monocytes % (Manual) Nucleated RBC % Seg Neutrophils # Seg Neutrophils # Man 19.9 H Lymphocytes # (Manual) 0.6 L Monocytes # (Manual) Eosinophils # (Manual) Basophils # (Manual) PT INR POC ABG pH ABG pH POC ABG pCO2 POC ABG pO2 ABG pO2 ABG O2 Saturation ABG Base Excess ABG Hemoglobin Oxyhemoglobin Sodium Potassium Chloride Carbon Dioxide BUN Creatinine Glucose POC Glucose 213 H 181 H Calcium Phosphorus Magnesium Iron TIBC AST ALT Alkaline Phosphatase Troponin T C-Reactive Protein Total Protein Albumin Triglycerides HDL Cholesterol Miscellaneous Test Crossmatch 09/11/17 09/11/17 09/11/17 11:55 17:56 23:12 WBC RBC Hgb Hct MCV MCH RDW Plt Count Lymph % (Auto) [place] % (Auto) [place] # Seg Neutrophils % Seg Neuts % (Manual) Lymphocytes % (Manual) Monocytes % (Manual) Nucleated RBC % Seg Neutrophils # Seg Neutrophils # Man Lymphocytes # (Manual) Monocytes # (Manual) Eosinophils # (Manual) Basophils # (Manual) PT INR POC ABG pH ABG pH POC ABG pCO2 POC ABG pO2 ABG pO2 ABG O2 Saturation ABG Base Excess ABG Hemoglobin Oxyhemoglobin Sodium Potassium Chloride Carbon Dioxide 21 L BUN 80 H Creatinine 2.1 H Glucose 170 H POC Glucose 277 H 206 H Calcium 8.0 L Phosphorus Magnesium Iron TIBC AST ALT Alkaline Phosphatase Troponin T C-Reactive Protein Total Protein Albumin Triglycerides HDL Cholesterol Miscellaneous Test Crossmatch 09/11/17 09/12/17 09/12/17 23:36 05:25 05:25 WBC 17.4 H RBC 2.29 L Hgb 6.7 L Hct 20.4 L MCV MCH RDW 21.2 H Plt Count Lymph % (Auto) [place] % (Auto) [place] # Seg Neutrophils % Seg Neuts % (Manual) 79.0 H Lymphocytes % (Manual) 5.0 L Monocytes % (Manual) Nucleated RBC % 1.0 H Seg Neutrophils # Seg Neutrophils # Man 13.7 H Lymphocytes # (Manual) 0.9 L Monocytes # (Manual) 1.2 H Eosinophils # (Manual) Basophils # (Manual) PT INR POC ABG pH ABG pH POC ABG pCO2 POC ABG pO2 ABG pO2 ABG O2 Saturation ABG Base Excess ABG Hemoglobin Oxyhemoglobin Sodium Potassium Chloride Carbon Dioxide BUN Creatinine Glucose POC Glucose 190 H Calcium Phosphorus Magnesium Iron 22 L TIBC 81 L AST ALT Alkaline Phosphatase Troponin T C-Reactive Protein Total Protein Albumin Triglycerides HDL Cholesterol Miscellaneous Test Crossmatch 09/12/17 05:36 WBC RBC Hgb Hct MCV MCH RDW Plt Count Lymph % (Auto) [place] % (Auto) [place] # Seg Neutrophils % Seg Neuts % (Manual) Lymphocytes % (Manual) Monocytes % (Manual) Nucleated RBC % Seg Neutrophils # Seg Neutrophils # Man Lymphocytes # (Manual) Monocytes # (Manual) Eosinophils # (Manual) Basophils # (Manual) PT INR POC ABG pH ABG pH POC ABG pCO2 POC ABG pO2 ABG pO2 ABG O2 Saturation ABG Base Excess ABG Hemoglobin Oxyhemoglobin Sodium Potassium Chloride Carbon Dioxide BUN Creatinine Glucose POC Glucose 141 H Calcium Phosphorus Magnesium Iron TIBC AST ALT Alkaline Phosphatase Troponin T C-Reactive Protein Total Protein Albumin Triglycerides HDL Cholesterol Miscellaneous Test Crossmatch
--- NOTE | 2017-09-12 09:51 | Progress Note ---
Assessment and Plan - Patient Problems (1) Leukocytosis Current Visit: Yes Status: Acute Qualifiers: Leukocytosis type: L Plan to address problem: See notes above. make sure that PD access is clean also. see notes. Probably infection from the infected PD catheter. improving. back up again. up/down continue to monitor. it continuos to rise. still high. improved. (2) Anemia Current Visit: Yes Status: Acute Qualifiers: Anemia type: A Iron deficiency anemia type: I Vitamin B12 deficiency anemia type: V Folate deficiency anemia type: F Bone marrow failure anemia type: B Hemolytic anemia type: H Other causes of anemia: O Chronic kidney disease stage: C Plan to address problem: see notes , monitor labs,. see notes above. continue to monitor labs with you. blood transfusion. S/P replacement transfusion. fair. s/p 1unit transfusion. see notes. Still at 7.4 6.9, scheduled for replacement. (3) Acute respiratory failure Current Visit: Yes Status: Acute Qualifiers: Respiratory failure complication: R Plan to address problem: follow pulm. Subjective Date of service: 09/12/17 Principal diagnosis: respiratory failure, sepsis, shock rectal bleeding Interval history: Patient seen today/examined, labs reviewed, case d/w she, and family.complaints of abdominal pain. Patient resting in bed in the ICU, post vascular procedure. labs reviewed, Reactive thrombocytosis, anemia of CD, leukocytosis from infection vs inflamatory process. Patient seen/examined, in bed in the ICU, on the vent post surgery.Labs reviewed , notes reviewed. will continue to monitor labs/patient with you. Replacement transfusion, if /when indicated. patient seen/examined, SBP75, on pressors., lethargic, on the vent, labs reviewed, wbc 39,000 Patient seen/examined, case reviewed, d/w her sister at the bed side. Patient seen/examined, labs reviewed, notes reviewed. severe septic shock from infected PD catheter The high wbc is all infection related. H?H low, and may get replacement transfusion with the next HD. Prognosis remain quite poor. Patient seen/examined, extubated, now on V Mask. labs reviewed. patient seen/examined, resting in bed, still some what lethargic . labs reviewed. Patient seen/examined, resting in bed., some difficulty with breathing./ lethargic. patient seen/examined, resting in bed, looked much better labs reviewed, and fair over all. Patient seen/examined, resting in bed, labs reviewed, case d/w her. Patient seen/examined, resting in bed on BIPAP., labs reviewed. patient seen/examined, resting in bed, on Bipap.labs reviewed, fairly stable. Patient seen today, resting in bed, labs reviewed, H/H low, and transfusion already ordered. Patient seen/examined, resting in bed, transferred back to the unit, due to resp failure. She is now on venting mask. had blood replacement done. Patient seen/examined in the ICU.labs reviewed. patient intubated this am. patient resting in bed.no new issues. Patient seen/examined in the ICU, on vent,Not readily responsive. patient seen, resting in bed, no new cbc ready.will order for today. Patient seen, resting in vent, labs reviewed.notes reviewed also. patient seen/examined, resting on vent, had HD yesterday, and today., labs reviewed. Patient seen, resting in bed, labs reviewed.fairly stable labs, except the wbc. Patient seen/examined, rtesting in bed on the vent.Labs reviewed, wbc still elevated, Hgb dropped slightly. Patient seen/examined, labs reviewed, hgb 7.3, if 7.0 or less, will replace .unless otherwise indicated. Patient seen/examined, alert but lethargic.sedation drip turned down.she is s/p 1unit PRBC replacement with HD today. Patient seen/examined, labs reviewed, hgb still not quite enough at 7.5, perhaps with the next HD,can use 1-2 units. Patient seen/examined, resting in bed, trached, labs re viewed. Patient seen/examined, resting in bed, responds to name calling, SBP99, labs reviewed, Hgb 6.9, PRBC replacement ordered by primary. Objective - Constitutional Vitals: Vital Signs - 12hr 09/11/17 09/11/17 09/11/17 22:00 22:15 22:30 Temperature Pulse Rate 98 H 95 H 93 H Pulse Rate [ Anterior Bilateral Throughout] Respiratory 20 20 20 Rate Respiratory Rate [Anterior Bilateral Throughout] Blood Pressure 131/58 93/45 101/46 O2 Sat by Pulse 100 100 100 Oximetry 10/18/17 10/18/17 10/18/17 22:45 23:00 23:08 Temperature Pulse Rate 95 H 93 H 93 H Pulse Rate [ Anterior Bilateral Throughout] Respiratory 20 22 20 Rate Respiratory Rate [Anterior Bilateral Throughout] Blood Pressure 106/49 104/46 104/46 O2 Sat by Pulse 100 100 100 Oximetry 09/11/17 09/11/17 09/11/17 23:15 23:30 23:45 Temperature Pulse Rate 93 H 93 H 94 H Pulse Rate [ Anterior Bilateral Throughout] Respiratory 21 20 20 Rate Respiratory Rate [Anterior Bilateral Throughout] Blood Pressure 108/47 105/54 103/49 O2 Sat by Pulse 100 100 100 Oximetry 09/11/17 09/12/17 09/12/17 23:46 00:00 00:16 Temperature 99.0 F Pulse Rate 94 H 96 H 95 H Pulse Rate [ Anterior Bilateral Throughout] Respiratory 20 20 Rate Respiratory Rate [Anterior Bilateral Throughout] Blood Pressure 103/49 103/49 111/48 O2 Sat by Pulse 100 100 100 Oximetry 09/12/17 09/12/17 09/12/17 00:30 00:45 01:00 Temperature Pulse Rate 94 H 97 H 93 H Pulse Rate [ Anterior Bilateral Throughout] Respiratory 20 20 20 Rate Respiratory Rate [Anterior Bilateral Throughout] Blood Pressure 103/55 114/55 111/54 O2 Sat by Pulse 100 100 100 Oximetry 09/12/17 09/12/17 09/12/17 01:15 01:30 01:45 Temperature Pulse Rate 99 H 95 H 102 H Pulse Rate [ Anterior Bilateral Throughout] Respiratory 16 20 19 Rate Respiratory Rate [Anterior Bilateral Throughout] Blood Pressure 113/52 116/58 114/48 O2 Sat by Pulse 100 100 100 Oximetry 09/12/17 09/12/17 09/12/17 02:00 02:15 02:30 Temperature Pulse Rate 94 H 93 H 96 H Pulse Rate [ Anterior Bilateral Throughout] Respiratory 20 19 20 Rate Respiratory Rate [Anterior Bilateral Throughout] Blood Pressure 111/51 114/55 112/49 O2 Sat by Pulse 100 100 100 Oximetry 09/12/17 09/12/17 09/12/17 02:35 02:45 02:50 Temperature Pulse Rate 96 H Pulse Rate [ 109 H 11 L Anterior Bilateral Throughout] Respiratory 20 Rate Respiratory 22 22 Rate [Anterior Bilateral Throughout] Blood Pressure 111/57 O2 Sat by Pulse 100 Oximetry 09/12/17 09/12/17 09/12/17 03:00 03:16 03:30 Temperature Pulse Rate 94 H 120 H 105 H Pulse Rate [ Anterior Bilateral Throughout] Respiratory 19 24 18 Rate Respiratory Rate [Anterior Bilateral Throughout] Blood Pressure 115/51 115/51 104/41 O2 Sat by Pulse 100 100 100 Oximetry 09/12/17 09/12/17 09/12/17 03:45 04:00 04:15 Temperature 98.8 F Pulse Rate 105 H 105 H 102 H Pulse Rate [ Anterior Bilateral Throughout] Respiratory 17 14 19 Rate Respiratory Rate [Anterior Bilateral Throughout] Blood Pressure 103/49 93/53 101/47 O2 Sat by Pulse 100 100 100 Oximetry 09/12/17 09/12/17 09/12/17 04:30 04:46 04:52 Temperature Pulse Rate 99 H 102 H 97 H Pulse Rate [ Anterior Bilateral Throughout] Respiratory 20 17 Rate Respiratory Rate [Anterior Bilateral Throughout] Blood Pressure 104/45 108/39 108/39 O2 Sat by Pulse 100 100 100 Oximetry 09/12/17 09/12/17 09/12/17 05:00 05:15 05:30 Temperature Pulse Rate 101 H 97 H 104 H Pulse Rate [ Anterior Bilateral Throughout] Respiratory 19 20 19 Rate Respiratory Rate [Anterior Bilateral Throughout] Blood Pressure 101/45 99/40 101/44 O2 Sat by Pulse 100 100 100 Oximetry 09/12/17 09/12/17 09/12/17 05:45 06:00 06:15 Temperature Pulse Rate 96 H 96 H 98 H Pulse Rate [ Anterior Bilateral Throughout] Respiratory 19 19 20 Rate Respiratory Rate [Anterior Bilateral Throughout] Blood Pressure 97/38 108/45 98/44 O2 Sat by Pulse 100 100 100 Oximetry 09/12/17 09/12/17 09/12/17 06:30 06:45 07:00 Temperature Pulse Rate 95 H 95 H 96 H Pulse Rate [ Anterior Bilateral Throughout] Respiratory 20 20 20 Rate Respiratory Rate [Anterior Bilateral Throughout] Blood Pressure 106/45 106/43 108/44 O2 Sat by Pulse 100 100 100 Oximetry 09/12/17 09/12/17 09/12/17 07:15 07:30 07:46 Temperature Pulse Rate 96 H 103 H 99 H Pulse Rate [ Anterior Bilateral Throughout] Respiratory 13 16 17 Rate Respiratory Rate [Anterior Bilateral Throughout] Blood Pressure 97/40 97/40 85/42 O2 Sat by Pulse 100 100 100 Oximetry 09/12/17 09/12/17 09/12/17 07:49 08:00 08:15 Temperature 98.9 F Pulse Rate 98 H 94 H Pulse Rate [ Anterior Bilateral Throughout] Respiratory 16 14 Rate Respiratory Rate [Anterior Bilateral Throughout] Blood Pressure 85/42 106/42 O2 Sat by Pulse 100 100 Oximetry 09/12/17 09/12/17 09/12/17 08:30 08:45 09:00 Temperature Pulse Rate 104 H 93 H 97 H Pulse Rate [ Anterior Bilateral Throughout] Respiratory 21 20 15 Rate Respiratory Rate [Anterior Bilateral Throughout] Blood Pressure 106/42 106/44 104/43 O2 Sat by Pulse 100 100 100 Oximetry 09/12/17 09:16 Temperature Pulse Rate 95 H Pulse Rate [ Anterior Bilateral Throughout] Respiratory 16 Rate Respiratory Rate [Anterior Bilateral Throughout] Blood Pressure 79/35 O2 Sat by Pulse 100 Oximetry General appearance: Present: mild distress - EENT Eyes: PERRL, EOM intact ENT: hearing intact Ears: bilateral: normal - Neck Neck: supple, normal ROM - Respiratory Respiratory: bilateral: diminished, rhonchi - Breasts Breasts: deferred - Cardiovascular Rhythm: regular Heart Sounds: Present: S1 & S2. Absent: gallop, rub Extremities: pulses intact, No edema, normal color, Full ROM - Gastrointestinal General gastrointestinal: Present: soft, non-tender, non-distended, normal bowel sounds Rectal Exam: deferred - Genitourinary Female genitourinary: deferred - Integumentary Integumentary: clear, warm, dry - Neurologic Neurologic: moves all extremities - Psychiatric Psychiatric: appropriate mood/affect - Labs CBC & Chem 7: 09/12/17 05:25 09/11/17 23:12 Labs: Abnormal lab results 09/11/17 09/11/17 09/11/17 Range/Units 11:55 17:56 23:12 WBC (4.5-11.0) K/mm3 RBC (3.65-5.03) M/mm3 Hgb (10.1-14.3) gm/dl Hct (30.3-42.9) % RDW (13.2-15.2) % Seg Neuts % (Manual) (40.0-70.0) % Lymphocytes % (Manual) (13.4-35.0) % Nucleated RBC % (0.0-0.9) % Seg Neutrophils # Man (1.8-7.7) K/mm3 Lymphocytes # (Manual) (1.2-5.4) K/mm3 Monocytes # (Manual) (0.0-0.8) K/mm3 Carbon Dioxide 21 L (22-30) mmol/L BUN 80 H (7-17) mg/dL Creatinine 2.1 H (0.7-1.2) mg/dL Glucose 170 H (65-100) mg/dL POC Glucose 277 H 206 H (70-105) Calcium 8.0 L (8.4-10.2) mg/dL Iron (37-170) ug/dL TIBC (250-450) mcg/dL 09/11/17 09/12/17 09/12/17 Range/Units 23:36 05:25 05:25 WBC 17.4 H (4.5-11.0) K/mm3 RBC 2.29 L (3.65-5.03) M/mm3 Hgb 6.7 L (10.1-14.3) gm/dl Hct 20.4 L (30.3-42.9) % RDW 21.2 H (13.2-15.2) % Seg Neuts % (Manual) 79.0 H (40.0-70.0) % Lymphocytes % (Manual) 5.0 L (13.4-35.0) % Nucleated RBC % 1.0 H (0.0-0.9) % Seg Neutrophils # Man 13.7 H (1.8-7.7) K/mm3 Lymphocytes # (Manual) 0.9 L (1.2-5.4) K/mm3 Monocytes # (Manual) 1.2 H (0.0-0.8) K/mm3 Carbon Dioxide (22-30) mmol/L BUN (7-17) mg/dL Creatinine (0.7-1.2) mg/dL Glucose (65-100) mg/dL POC Glucose 190 H (70-105) Calcium (8.4-10.2) mg/dL Iron 22 L (37-170) ug/dL TIBC 81 L (250-450) mcg/dL 09/12/17 Range/Units 05:36 WBC (4.5-11.0) K/mm3 RBC (3.65-5.03) M/mm3 Hgb (10.1-14.3) gm/dl Hct (30.3-42.9) % RDW (13.2-15.2) % Seg Neuts % (Manual) (40.0-70.0) % Lymphocytes % (Manual) (13.4-35.0) % Nucleated RBC % (0.0-0.9) % Seg Neutrophils # Man (1.8-7.7) K/mm3 Lymphocytes # (Manual) (1.2-5.4) K/mm3 Monocytes # (Manual) (0.0-0.8) K/mm3 Carbon Dioxide (22-30) mmol/L BUN (7-17) mg/dL Creatinine (0.7-1.2) mg/dL Glucose (65-100) mg/dL POC Glucose 141 H (70-105) Calcium (8.4-10.2) mg/dL Iron (37-170) ug/dL TIBC (250-450) mcg/dL
[2017-09-12] MEDS: MYCAMINE 100 MG in NACL 0.9% 100 ML IV SCH (10:37)
--- NOTE | 2017-09-12 10:58 | Progress Note ---
Assessment and Plan Assessment and plan: Acute hypoxic respiratory failure on Mechanical ventilation > 96 hours continue ventilator support s/p tracheostomy on 09/09/17, had failed extubation multiple times Sepsis secondary to peritonitis, Intra abdominal abscess and Bowel obstruction Patient had completed 14 days of meropenem and diflucan, was restarted again due to fever/septic shock continue abx per ID recommendation she has had the following procedures 08/31: Ex lap with abdominal wash out and closure 08/17: Ex lap with G tube placement, EGD, abdominal wash out and removal of PD Cath Acute GI bleeding with severe acute blood loss anemia EGD showed small gastric ulcer s/p multiple transfusions GI Physician following Patient had CTA of abdomen and pelvis no active bleeding, CT Abdomen repeated , no acute findings transfuse to keep Hg above 8 given septic shock continue Protonix iv Ulcerative esophagitis/small gastric ulcer on EGD Continue iv Protonix Anemia. Hgb 6.7 today. Transfuse 1 unit PRBC today and repeat H/H post- transfusion. ESRD. Dialysis as per Nephrology. Septic shock. continue IV pressors,Vasopressin and Levophed. wean off as needed continue abx, ID input appreciated Discussed case with ID Physician. Severe Protein calorie malnutrition Continue with TPN Sacral and lower extremity wound, POA continue wound care NSVT likely due to levophed, wean as tolerated cardiology input appreciated DVT prophylaxis; SCDs Not on anticoagualation because of GI bleed Disposition: continue ICU care Prognosis: guarded I discussed with at bedside today. Discussed with her Daughter and Sisterat bedside. I also discussed case with ID Physician and Lead Rider. Discussed with case investigator about arranging family meeting tomorrow. History Interval history: Patient with severe sepsis,septic shock, Patient still on pressors Hospitalist Physical - Physical exam Narrative exam: Gen Appearance: Not in acute distress,morbidly obese HEENT: normocephalic, atraumatic Neck: supple, no JVD, Tracheostomy Lungs: Clear to auscultation, no rales, no wheezing, Heart: S1 and S2 regular, no murmurs,no rubs or gallop, Abdomen: Soft , non tender, non distended, Dressing over abdomen, G tube, bowel sounds present Extremity:Bilateral edema, no clubbing or cyanosis, Neuro : Sedated with Fentanyl - Constitutional Vitals: Temp Pulse Resp BP Pulse Ox 98.9 F 94 H 20 92/38 100 09/12/17 07:49 09/12/17 10:15 09/12/17 10:15 09/12/17 10:15 09/12/17 10:15 General appearance: Present: mild distress Results - Labs CBC & Chem 7: 09/12/17 15:22 09/11/17 23:12 Labs: Laboratory Last Values WBC 17.4 K/mm3 (4.5-11.0) H 09/12/17 05:25 RBC 2.29 M/mm3 (3.65-5.03) L 09/12/17 05:25 Hgb 6.7 gm/dl (10.1-14.3) L 09/12/17 05:25 Hct 20.4 % (30.3-42.9) L 09/12/17 05:25 MCV 89 fl (79-97) 09/12/17 05:25 MCH 29 pg (28-32) 09/12/17 05:25 MCHC 33 % (30-34) 09/12/17 05:25 RDW 21.2 % (13.2-15.2) H 09/12/17 05:25 Plt Count 149 K/mm3 (140-440) 09/12/17 05:25 Lymph % (Auto) Senior Stereo Compiler Team Lead 08/19/17 07:37 [place] % (Auto) Senior Stereo Compiler Team Lead 09/12/17 05:25 Eos % (Auto) Senior Stereo Compiler Team Lead 08/19/17 07:37 Baso % (Auto) Senior Stereo Compiler Team Lead 08/19/17 07:37 Lymph # Senior Stereo Compiler Team Lead 08/19/17 07:37 [place] # Senior Stereo Compiler Team Lead 08/19/17 07:37 Eos # Senior Stereo Compiler Team Lead 08/19/17 07:37 Baso # Senior Stereo Compiler Team Lead 08/19/17 07:37 Add Manual Diff Complete 09/12/17 05:25 Total Counted 100 09/12/17 05:25 Seg Neutrophils % Senior Stereo Compiler Team Lead 09/08/17 04:05 Seg Neuts % (Manual) 79.0 % (40.0-70.0) H 09/12/17 05:25 Band Neutrophils % 5.0 % 09/12/17 05:25 Lymphocytes % (Manual) 5.0 % (13.4-35.0) L 09/12/17 05:25 Reactive Lymphs % (Man) 0 % 09/12/17 05:25 Monocytes % (Manual) 7.0 % (0.0-7.3) 09/12/17 05:25 Eosinophils % (Manual) 2.0 % (0.0-4.3) 09/12/17 05:25 Basophils % (Manual) 0 % (0.0-1.8) 09/12/17 05:25 Metamyelocytes % 2.0 % 09/12/17 05:25 Myelocytes % 0 % 09/12/17 05:25 Promyelocytes % 0 % 09/12/17 05:25 Blast Cells % 0 % 09/12/17 05:25 Nucleated RBC % 1.0 % (0.0-0.9) H 09/12/17 05:25 Seg Neutrophils # Senior Stereo Compiler Team Lead 08/19/17 07:37 Seg Neutrophils # Man 13.7 K/mm3 (1.8-7.7) H 09/12/17 05:25 Band Neutrophils # 0.9 K/mm3 09/12/17 05:25 Lymphocytes # (Manual) 0.9 K/mm3 (1.2-5.4) L 09/12/17 05:25 Abs React Lymphs (Man) 0.0 K/mm3 09/12/17 05:25 Monocytes # (Manual) 1.2 K/mm3 (0.0-0.8) H 09/12/17 05:25 Eosinophils # (Manual) 0.3 K/mm3 (0.0-0.4) 09/12/17 05:25 Basophils # (Manual) 0.0 K/mm3 (0.0-0.1) 09/12/17 05:25 Metamyelocytes # 0.3 K/mm3 09/12/17 05:25 Myelocytes # 0.0 K/mm3 09/12/17 05:25 Promyelocytes # 0.0 K/mm3 09/12/17 05:25 Blast Cells # 0.0 K/mm3 09/12/17 05:25 Pathologist Review Not Reportable 08/30/17 05:20 WBC Morphology Not Reportable 09/12/17 05:25 Hypersegmented Neuts Not Reportable 09/12/17 05:25 Hyposegmented Neuts Not Reportable 09/12/17 05:25 Hypogranular Neuts Not Reportable 09/12/17 05:25 Smudge Cells Not Reportable 09/12/17 05:25 Toxic Granulation Not Reportable 09/12/17 05:25 Toxic Vacuolation Not Reportable 09/12/17 05:25 Dohle Bodies Not Reportable 09/12/17 05:25 Pelger-Huet Anomaly Not Reportable 09/12/17 05:25 Ariel Rods Not Reportable 09/12/17 05:25 Platelet Estimate Appears normal 09/12/17 05:25 Clumped Platelets Not Reportable 09/12/17 05:25 Plt Clumps, EDTA Not Reportable 09/12/17 05:25 Large Platelets Not Reportable 09/12/17 05:25 Giant Platelets Not Reportable 09/12/17 05:25 Platelet Satelliting Not Reportable 09/12/17 05:25 Plt Morphology Comment Not Reportable 09/12/17 05:25 RBC Morphology Not Reportable 09/12/17 05:25 Dimorphic RBCs Not Reportable 09/12/17 05:25 Polychromasia 1+ 09/12/17 05:25 Hypochromasia Not Reportable 09/12/17 05:25 Poikilocytosis Not Reportable 09/12/17 05:25 Anisocytosis 1+ 09/12/17 05:25 Microcytosis Not Reportable 09/12/17 05:25 Macrocytosis Few 09/12/17 05:25 Spherocytes Rare 09/12/17 05:25 Pappenheimer Bodies Not Reportable 09/12/17 05:25 Sickle Cells Not Reportable 09/12/17 05:25 Target Cells Not Reportable 09/12/17 05:25 Tear Drop Cells Not Reportable 09/12/17 05:25 Ovalocytes Not Reportable 09/12/17 05:25 Stomatocytes Rare 09/12/17 05:25 Helmet Cells Not Reportable 09/12/17 05:25 Vera-Ridott Bodies Not Reportable 09/12/17 05:25 [place] Rings Not Reportable 09/12/17 05:25 Leroy Cells Not Reportable 09/12/17 05:25 Bite Cells Not Reportable 09/12/17 05:25 Crenated Cell Not Reportable 09/12/17 05:25 Elliptocytes Not Reportable 09/12/17 05:25 Acanthocytes (Spur) Not Reportable 09/12/17 05:25 Rouleaux Not Reportable 09/12/17 05:25 Hemoglobin C Crystals Not Reportable 09/12/17 05:25 Schistocytes Not Reportable 09/12/17 05:25 Malaria parasites Not Reportable 09/12/17 05:25 Jovanni Bodies Not Reportable 09/12/17 05:25 Hem Pathologist Commnt No 09/12/17 05:25 PT 15.1 Sec. (12.2-14.9) H 08/31/17 18:15 INR 1.13 (0.87-1.13) 08/31/17 18:15 APTT 28.7 Sec. (24.2-36.6) 08/31/17 18:15 POC ABG pH 7.335 (7.35-7.45) L 08/30/17 03:31 ABG pH 7.323 pH Units (7.350-7.450) L 09/09/17 Unknown POC ABG pCO2 44.1 (35-45) 08/30/17 03:31 ABG pCO2 41.1 mm Hg 09/09/17 Unknown POC ABG pO2 117 (80-105) H 08/30/17 03:31 ABG pO2 94.1 mm Hg (80.0-90.0) H 09/09/17 Unknown POC ABG HCO3 23.5 08/30/17 03:31 ABG HCO3 20.9 mmol/L (20.0-26.0) 09/09/17 Unknown POC ABG Total CO2 25 08/30/17 03:31 POC ABG O2 Sat 98 08/30/17 03:31 ABG O2 Saturation 97.2 % (95.0-99.0) 09/09/17 Unknown ABG O2 Content 10.9 (0.0-44) 09/09/17 Unknown POC ABG Base Excess -2 08/30/17 03:31 ABG Base Excess -4.8 mmol/L (-2.0-3.0) L 09/09/17 Unknown ABG Hemoglobin 8.0 gm/dl (12.0-16.0) L 09/09/17 Unknown ABG Carboxyhemoglobin 2.0 % (0.0-5.0) 09/09/17 Unknown ABG Methemoglobin 0.3 % (0.0-1.5) 09/09/17 Unknown VBG pH 7.462 (7.320-7.420) H 08/08/17 14:52 Oxyhemoglobin 94.9 % (95.0-99.0) L 09/09/17 Unknown FiO2 30 % 09/09/17 Unknown Sodium 137 mmol/L (137-145) 09/11/17 23:12 Potassium 4.0 mmol/L (3.6-5.0) 09/11/17 23:12 Chloride 98.1 mmol/L (98-107) 09/11/17 23:12 Carbon Dioxide 21 mmol/L (22-30) L 09/11/17 23:12 Anion Gap 22 mmol/L 09/11/17 23:12 BUN 80 mg/dL (7-17) H 09/11/17 23:12 Creatinine 2.1 mg/dL (0.7-1.2) H 09/11/17 23:12 Estimated GFR 29 ml/min 09/11/17 23:12 BUN/Creatinine Ratio 38 % 09/11/17 23:12 Glucose 170 mg/dL (65-100) H 09/11/17 23:12 POC Glucose 141 (70-105) H 09/12/17 05:36 Lactic Acid 1.60 mmol/L (0.7-2.0) 08/17/17 11:20 Calcium 8.0 mg/dL (8.4-10.2) L 09/11/17 23:12 Phosphorus 4.00 mg/dL (2.5-4.5) D 09/10/17 07:00 Magnesium 2.30 mg/dL (1.7-2.3) 09/10/17 07:00 Iron 22 ug/dL (37-170) L 09/12/17 05:25 TIBC 81 mcg/dL (250-450) L 09/12/17 05:25 Ferritin > 2000.0 ng/mL (13.0-400.0) H 09/12/17 05:25 Total Bilirubin 1.00 mg/dL (0.1-1.2) 09/08/17 04:05 Direct Bilirubin 0.2 mg/dL (0-0.2) 08/08/17 14:11 Indirect Bilirubin 0.3 mg/dL 08/08/17 14:11 AST 14 units/L (5-40) 09/08/17 04:05 ALT 16 units/L (7-56) 09/08/17 04:05 Alkaline Phosphatase 199 units/L (35-129) H 09/08/17 04:05 Ammonia 25.0 umol/L (25-60) 08/08/17 14:52 Troponin T 0.132 ng/mL (0.00-0.029) H* 08/09/17 13:25 C-Reactive Protein 2.80 mg/dL (0.00-1.30) H 09/06/17 05:30 NT-Pro-B Natriuret Pep 6156 pg/mL (0-900) H 08/08/17 14:11 Total Protein 4.5 g/dL (6.3-8.2) L 09/08/17 04:05 Albumin 1.7 g/dL (3.9-5) L 09/08/17 04:05 Albumin/Globulin Ratio 0.6 % 09/08/17 04:05 Triglycerides 180 mg/dL (2-149) H 09/03/17 04:00 Cholesterol 91 mg/dL (50-199) 08/08/17 21:23 LDL Cholesterol Direct 53 mg/dL (50-130) 08/08/17 21:23 HDL Cholesterol 26 mg/dL (40-59) L 08/08/17 21:23 Cholesterol/HDL Ratio 3.50 % 08/08/17 21:23 Amylase 45 units/L (27-131) 08/16/17 09:50 Lipase 34 units/L (13-60) 08/16/17 09:50 TSH 6.580 mlU/mL (0.270-4.200) H 08/08/17 14:22 Free T4 1.46 ng/dL (0.76-1.46) 08/08/17 14:22 Total Cortisol 30.1 mcg/dL () 08/13/17 06:14 Urine Color Yellow (Yellow) 08/08/17 20:15 Urine Turbidity Turbid (Clear) 08/08/17 20:15 Urine pH 8.0 (5.0-7.0) H 08/08/17 20:15 Ur Specific [place] 1.015 (1.003-1.030) 08/08/17 20:15 Urine Protein 100 mg/dl mg/dL (Negative) 08/08/17 20:15 Urine Glucose (UA) Neg mg/dL (Negative) 08/08/17 20:15 Urine Ketones Neg mg/dL (Negative) 08/08/17 20:15 Urine Blood Mod (Negative) 08/08/17 20:15 Urine Nitrite Neg (Negative) 08/08/17 20:15 Urine Bilirubin Neg (Negative) 08/08/17 20:15 Urine Urobilinogen < 2.0 mg/dL (<2.0) 08/08/17 20:15 Ur Leukocyte Esterase Lg (Negative) 08/08/17 20:15 Urine WBC (Auto) 24.0 /HPF (0.0-6.0) H 08/08/17 20:15 Urine RBC (Auto) 3.0 /HPF (0.0-6.0) 08/08/17 20:15 U Epithel Cells (Auto) 3.0 /HPF (0-13.0) 08/08/17 20:15 Urine Bacteria (Auto) 4+ /HPF (Negative) 08/08/17 20:15 Urine Mucus 3+ /HPF 08/08/17 20:15 Fluid Type Peritoneal 08/08/17 18:18 Fluid Color Straw 08/08/17 18:18 Fluid Appearance Clear 08/08/17 18:18 Fluid pH 7.74 08/08/17 18:18 Fluid WBC 4 /mm3 08/08/17 18:18 Fluid RBC 1 /mm3 08/08/17 18:18 Fluid Seg Neutrophils 12 % 08/08/17 18:18 Fluid Lymphocytes 0 % 08/08/17 18:18 Fluid Reactive Lymphs 0 % 08/08/17 18:18 Fluid Monocytes 1 % 08/08/17 18:18 Fluid Eosinophils 0 % 08/08/17 18:18 Fluid Basophils 0 % 08/08/17 18:18 Fluid Glucose 315 mg/dL (40-70) H 08/08/17 18:18 Random Vancomycin 19.5 ug/mL (0-40.0) 08/22/17 03:40 Hep Bs Antigen Non-reactive (Negative) 08/22/17 03:40 Hepatitis C Antibody Non-reactive (NonReactive) 08/22/17 03:40 Miscellaneous Test Flexitest 1 H 09/06/17 09:57 Blood Type O POSITIVE 09/12/17 09:14 Antibody Screen Negative 09/12/17 09:14 VAN Antibody Screen Negative 09/07/17 17:07 Crossmatch See Detail 09/12/17 09:14
--- NOTE | 2017-09-12 11:36 | Progress Note ---
Assessment and Plan Assessment: 1) Sepsis with septic shock: worsening on 2 pressors however leukocytosis improving; new source ? unclear ? BP cuff error. Repeat CT no abscess no collection. CXR pulmonary edema. Ivan removed. -CRP= 34 -->30 -->19-->0.1 ->2.8 -procalcitonin=1.3 -->7.6 -->3.9 -->3.2 2) Bowel obstruction / suspect ?gastric perforation ? peritonitis -S/P Exlap, G-tube placement, EGD, abdominal washout and removal of PD -OR findings - bowel obstruction due to entanglement of PD cath, abscess cavity in LUQ and ? suspect perforation of unclear location 3) CA-UTI: chronic ivan exchanged every 4 weeks and ureteral stents in place which are exchanged every 6 months ? urine cultures still pending should r/o MDR bacteria 4) Paraplegia 5) ESRD on PD - no evidence of peritonitis, wbc count 2. 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 6) Recent pancreatitis 7) Penicillin allergy-has taken keflex w/o problems 8) Presumed Surgical wound infection / dehiscence ? 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 11) Sacral stage II 12) Anemia- severe- Hg 6.7 today Plan: -obtain arterial line ? erroneous BP -obtain blood cx -continue dapto IV day 3 -start micafungin day 2 -continue meropenem 5 -monitor leukocytosis which is better -wound care poor prognosis discussed with family previously Thank you Dr Cantu for your consultation, will follow up with you. Ramya Lang MD Infectious Diseases Specialist [facility] ([facility] M [phone] O [phone] Subjective Date of service: 09/12/17 Principal diagnosis: respiratory failure, sepsis, shock rectal bleeding Interval history: Pt remains intubated on the vent now on levophed at 21 mcg and vasopressin 0.3, on TPN, fentanyl, no fever. Microbiology: Blood cultures: 08/08 neg 08/12 neg 08/16 neg 08/20 neg 08/29 neg 09/06 neg Urine cultures: 08/08 10-100K skin grace Respiratory cultures: 08/30 tracheal asp MRSA Wound cultures: 08/26 Staph aureus and Kristine 08/28 MRSA, E faecalis, Kristine albicans Stool cultures: Other: 08/08 peritoneal fluid + OFFICE MANAGER EXECUTIVE ASSISTANT/Diphteroids Current Antimicrobials: dapto 09/10 fluconazole 09/03 meropenem 09/09 Previous Antimicrobials: 08/10 levaquin 08/16 vancomycin 08/13 meropenem 08/16 fluconazole Micafungin 08/29 meropenem 08/29 zyvox 09/03 Objective - Exam Narrative Exam: General appearance: sedated on vent via trach Eyes: anicteric sclerae, moist conjunctivae; no lid-lag; PERRLA HENT: Atraumatic; NGT Neck: Trach in place Lungs: coarse BS moreno CV: RRR, no murmurs Abdomen: soft, midline surgical wound with sutures +serosnaguinous bleeding. Gtube. drain Extremities: + peripheral edema + leg ulcer no drainage Skin: right groin old fem line wound no erythema, no drainage Psych: sedated. Neuro: sedated Lines: right IJ vas cath / Right IJ Nair 08/16 - Constitutional Vitals: Vital Signs Temp Pulse Resp BP Pulse Ox 98.3 F 110 H 11 L 90/48 100 09/12/17 11:28 09/12/17 11:00 09/12/17 11:00 09/12/17 11:00 09/12/17 11:00 Temperature -Last 24 Hours Temperature 98.3 F Temperature 98.9 F Temperature 98.8 F Temperature 99.0 F Temperature 98.3 F Temperature 99.0 F Temperature 98.3 F Temperature 98.3 F Temperature 98.8 F - Labs CBC & Chem 7: 09/12/17 05:25 09/11/17 23:12 Labs: Abnormal lab results 09/11/17 09/11/17 09/11/17 Range/Units 11:55 17:56 23:12 WBC (4.5-11.0) K/mm3 RBC (3.65-5.03) M/mm3 Hgb (10.1-14.3) gm/dl Hct (30.3-42.9) % RDW (13.2-15.2) % Seg Neuts % (Manual) (40.0-70.0) % Lymphocytes % (Manual) (13.4-35.0) % Nucleated RBC % (0.0-0.9) % Seg Neutrophils # Man (1.8-7.7) K/mm3 Lymphocytes # (Manual) (1.2-5.4) K/mm3 Monocytes # (Manual) (0.0-0.8) K/mm3 Carbon Dioxide 21 L (22-30) mmol/L BUN 80 H (7-17) mg/dL Creatinine 2.1 H (0.7-1.2) mg/dL Glucose 170 H (65-100) mg/dL POC Glucose 277 H 206 H (70-105) Calcium 8.0 L (8.4-10.2) mg/dL Iron (37-170) ug/dL TIBC (250-450) mcg/dL Ferritin (13.0-400.0) ng/mL Crossmatch 09/11/17 09/12/17 09/12/17 Range/Units 23:36 05:25 05:25 WBC 17.4 H (4.5-11.0) K/mm3 RBC 2.29 L (3.65-5.03) M/mm3 Hgb 6.7 L (10.1-14.3) gm/dl Hct 20.4 L (30.3-42.9) % RDW 21.2 H (13.2-15.2) % Seg Neuts % (Manual) 79.0 H (40.0-70.0) % Lymphocytes % (Manual) 5.0 L (13.4-35.0) % Nucleated RBC % 1.0 H (0.0-0.9) % Seg Neutrophils # Man 13.7 H (1.8-7.7) K/mm3 Lymphocytes # (Manual) 0.9 L (1.2-5.4) K/mm3 Monocytes # (Manual) 1.2 H (0.0-0.8) K/mm3 Carbon Dioxide (22-30) mmol/L BUN (7-17) mg/dL Creatinine (0.7-1.2) mg/dL Glucose (65-100) mg/dL POC Glucose 190 H (70-105) Calcium (8.4-10.2) mg/dL Iron 22 L (37-170) ug/dL TIBC 81 L (250-450) mcg/dL Ferritin (13.0-400.0) ng/mL Crossmatch 09/12/17 09/12/17 09/12/17 Range/Units 05:25 05:36 09:14 WBC (4.5-11.0) K/mm3 RBC (3.65-5.03) M/mm3 Hgb (10.1-14.3) gm/dl Hct (30.3-42.9) % RDW (13.2-15.2) % Seg Neuts % (Manual) (40.0-70.0) % Lymphocytes % (Manual) (13.4-35.0) % Nucleated RBC % (0.0-0.9) % Seg Neutrophils # Man (1.8-7.7) K/mm3 Lymphocytes # (Manual) (1.2-5.4) K/mm3 Monocytes # (Manual) (0.0-0.8) K/mm3 Carbon Dioxide (22-30) mmol/L BUN (7-17) mg/dL Creatinine (0.7-1.2) mg/dL Glucose (65-100) mg/dL POC Glucose 141 H (70-105) Calcium (8.4-10.2) mg/dL Iron (37-170) ug/dL TIBC (250-450) mcg/dL Ferritin > 2000.0 H (13.0-400.0) ng/mL Crossmatch See Detail
[2017-09-12] MEDS: fentaNYL DRIP Premix 2,000 MCG/100 ML BAG IV SCH (11:44)
[2017-09-12] MEDS: MERREM 1,000 MG in NACL 0.9% 100 ML IV SCH (12:01)
[2017-09-12] MEDS: DILAUDID IV PRN ×2 (12:55→18:20)
[2017-09-12] MEDS: CUBICIN IV SCH ×2 (14:28→17:47)
[2017-09-12] MEDS: NACL 0.9% IV SCH ×2 (14:28→17:47)
[2017-09-12] MEDS ORDERED: WATER FOR INJ (PF) 10 ML ONE (14:42)
[2017-09-12 17:09] LABS: Hematocrit 25.4 % (30.3-42.9); Hemoglobin 8.5 gm/dl (10.1-14.3)
[2017-09-12] MEDS: CATHFLO IV PRN ×2 (17:21→17:22)
--- NOTE | 2017-09-12 18:20 | Progress Note ---
Assessment and Plan 62 y.o. F s/p ex lap, abdominal wash out and abdominal wall closure after wound dehiscence 2 weeks s/p ex lap for gastric perforation and sbo. Sepsis: Pt requiring levo, vaso. Requirements increasing. Leukocytosis improving. Steroids off . Source of sepsis unknown. Recent CT abd pelvis does not show any collections. Rec. follow blood cultures. F/u cultures. -Wound care following wounds on legs/sacrum -leukocytosis improving - ID following VDRF: s/p trach. GI bleed-resolved: Pt started to have melena now resolved. The source is likely lower GI since G tube has remained bilious. If bleeding continues rec bleeding scan for possible source. -Rec protonic drip due to new light bloody color of G tube. Prev Gastric perf: Leak test today via NG tube and methylene blue. No blue noted in MERVIN. Minimal NG and G tube output after clamping. Trickle feeds possible. Nutrition: TPN at 75- replace G tube losses though she is renal? Renal to manage fluids. DVT proph: scds hold hep with GI bleed. GI: PPI. Family meeting planned for AM. I will attend. - Patient Problems (1) Peritonitis (acute) generalized Current Visit: Yes Status: Acute Subjective Narrative: Pt seen at bedside. Just finished HD. Per HD nurse 3 L removed. Pt currently on max levo and continues to require vaso. Her sysbp is now 50sys. Peterson has been requested. MERVIN 105 serosang/drker compared to yesterday. (24hrs) NG- unclamped this am and connected to wall suction: 100cc G tube: unclamped this am: 100cc during day. Objective Vital Signs - 12hr 09/12/17 09/12/17 09/12/17 06:30 06:45 07:00 Temperature Pulse Rate 95 H 95 H 96 H Pulse Rate [ Anterior Bilateral Throughout] Respiratory 20 20 20 Rate Respiratory Rate [Anterior Bilateral Throughout] Blood Pressure 106/45 106/43 108/44 O2 Sat by Pulse 100 100 100 Oximetry O2 Sat by Pulse Oximetry [ Anterior Bilateral Throughout] O2 Sat by Pulse Oximetry [ Assessment] 09/12/17 09/12/17 09/12/17 07:15 07:30 07:46 Temperature Pulse Rate 96 H 103 H 99 H Pulse Rate [ Anterior Bilateral Throughout] Respiratory 13 16 17 Rate Respiratory Rate [Anterior Bilateral Throughout] Blood Pressure 97/40 97/40 85/42 O2 Sat by Pulse 100 100 100 Oximetry O2 Sat by Pulse Oximetry [ Anterior Bilateral Throughout] O2 Sat by Pulse Oximetry [ Assessment] 09/12/17 09/12/17 09/12/17 07:49 08:00 08:15 Temperature 98.9 F Pulse Rate 98 H 94 H Pulse Rate [ Anterior Bilateral Throughout] Respiratory 16 14 Rate Respiratory Rate [Anterior Bilateral Throughout] Blood Pressure 85/42 106/42 O2 Sat by Pulse 100 100 Oximetry O2 Sat by Pulse Oximetry [ Anterior Bilateral Throughout] O2 Sat by Pulse Oximetry [ Assessment] 09/12/17 09/12/17 09/12/17 08:30 08:45 09:00 Temperature Pulse Rate 104 H 93 H 97 H Pulse Rate [ Anterior Bilateral Throughout] Respiratory 21 20 15 Rate Respiratory Rate [Anterior Bilateral Throughout] Blood Pressure 106/42 106/44 104/43 O2 Sat by Pulse 100 100 100 Oximetry O2 Sat by Pulse Oximetry [ Anterior Bilateral Throughout] O2 Sat by Pulse Oximetry [ Assessment] 09/12/17 09/12/17 09/12/17 09:16 09:30 09:45 Temperature Pulse Rate 95 H 97 H 95 H Pulse Rate [ Anterior Bilateral Throughout] Respiratory 16 20 20 Rate Respiratory Rate [Anterior Bilateral Throughout] Blood Pressure 79/35 97/44 100/42 O2 Sat by Pulse 100 100 100 Oximetry O2 Sat by Pulse Oximetry [ Anterior Bilateral Throughout] O2 Sat by Pulse Oximetry [ Assessment] 09/12/17 09/12/17 09/12/17 10:00 10:15 10:30 Temperature Pulse Rate 102 H 94 H 93 H Pulse Rate [ Anterior Bilateral Throughout] Respiratory 18 20 20 Rate Respiratory Rate [Anterior Bilateral Throughout] Blood Pressure 91/39 92/38 94/41 O2 Sat by Pulse 100 100 100 Oximetry O2 Sat by Pulse Oximetry [ Anterior Bilateral Throughout] O2 Sat by Pulse Oximetry [ Assessment] 09/12/17 09/12/17 09/12/17 10:40 10:45 10:55 Temperature Pulse Rate 102 H 93 H Pulse Rate [ 104 H Anterior Bilateral Throughout] Respiratory 20 Rate Respiratory 20 Rate [Anterior Bilateral Throughout] Blood Pressure 90/48 98/28 O2 Sat by Pulse 99 100 Oximetry O2 Sat by Pulse Oximetry [ Anterior Bilateral Throughout] O2 Sat by Pulse 98 Oximetry [ Assessment] 09/12/17 09/12/17 09/12/17 11:00 11:10 11:15 Temperature Pulse Rate 110 H 99 H Pulse Rate [ 102 H Anterior Bilateral Throughout] Respiratory 11 L 18 Rate Respiratory 20 Rate [Anterior Bilateral Throughout] Blood Pressure 90/48 103/50 O2 Sat by Pulse 100 100 Oximetry O2 Sat by Pulse Oximetry [ Anterior Bilateral Throughout] O2 Sat by Pulse Oximetry [ Assessment] 09/12/17 09/12/17 09/12/17 11:28 11:30 11:46 Temperature 98.3 F Pulse Rate 98 H 98 H Pulse Rate [ Anterior Bilateral Throughout] Respiratory 18 19 Rate Respiratory Rate [Anterior Bilateral Throughout] Blood Pressure 96/47 99/39 O2 Sat by Pulse 100 100 Oximetry O2 Sat by Pulse Oximetry [ Anterior Bilateral Throughout] O2 Sat by Pulse Oximetry [ Assessment] 09/12/17 09/12/17 09/12/17 12:00 12:16 12:30 Temperature Pulse Rate 103 H 98 H 100 H Pulse Rate [ Anterior Bilateral Throughout] Respiratory 17 16 17 Rate Respiratory Rate [Anterior Bilateral Throughout] Blood Pressure 99/39 107/41 107/47 O2 Sat by Pulse 100 100 100 Oximetry O2 Sat by Pulse Oximetry [ Anterior Bilateral Throughout] O2 Sat by Pulse Oximetry [ Assessment] 09/12/17 09/12/17 09/12/17 12:46 13:00 13:15 Temperature Pulse Rate 97 H 97 H 96 H Pulse Rate [ Anterior Bilateral Throughout] Respiratory 14 20 20 Rate Respiratory Rate [Anterior Bilateral Throughout] Blood Pressure 102/56 101/51 106/51 O2 Sat by Pulse 100 100 100 Oximetry O2 Sat by Pulse Oximetry [ Anterior Bilateral Throughout] O2 Sat by Pulse Oximetry [ Assessment] 09/12/17 09/12/17 09/12/17 13:30 13:45 13:46 Temperature 98.3 F Pulse Rate 97 H 91 H 93 H Pulse Rate [ Anterior Bilateral Throughout] Respiratory 20 22 20 Rate Respiratory Rate [Anterior Bilateral Throughout] Blood Pressure 104/50 95/44 104/50 O2 Sat by Pulse 100 100 Oximetry O2 Sat by Pulse 100 Oximetry [ Anterior Bilateral Throughout] O2 Sat by Pulse Oximetry [ Assessment] 09/12/17 09/12/17 09/12/17 13:55 14:00 14:15 Temperature 98.1 F 97.4 F L Pulse Rate 91 H 91 H 92 H Pulse Rate [ Anterior Bilateral Throughout] Respiratory 16 21 20 Rate Respiratory Rate [Anterior Bilateral Throughout] Blood Pressure 95/44 95/44 102/25 O2 Sat by Pulse 100 100 100 Oximetry O2 Sat by Pulse Oximetry [ Anterior Bilateral Throughout] O2 Sat by Pulse Oximetry [ Assessment] 09/12/17 09/12/17 09/12/17 14:16 14:30 14:32 Temperature Pulse Rate 95 H 94 H 95 H Pulse Rate [ Anterior Bilateral Throughout] Respiratory 20 22 Rate Respiratory Rate [Anterior Bilateral Throughout] Blood Pressure 95/44 89/23 89/23 O2 Sat by Pulse 100 100 Oximetry O2 Sat by Pulse Oximetry [ Anterior Bilateral Throughout] O2 Sat by Pulse Oximetry [ Assessment] 09/12/17 09/12/17 09/12/17 14:36 14:45 14:46 Temperature 97.4 F L Pulse Rate 92 H 88 89 Pulse Rate [ Anterior Bilateral Throughout] Respiratory 16 13 Rate Respiratory Rate [Anterior Bilateral Throughout] Blood Pressure 89/23 93/68 93/68 O2 Sat by Pulse 100 98 100 Oximetry O2 Sat by Pulse Oximetry [ Anterior Bilateral Throughout] O2 Sat by Pulse Oximetry [ Assessment] 09/12/17 09/12/17 09/12/17 14:47 14:50 15:00 Temperature Pulse Rate 88 99 H Pulse Rate [ 98 H Anterior Bilateral Throughout] Respiratory 20 Rate Respiratory 20 Rate [Anterior Bilateral Throughout] Blood Pressure 93/68 84/50 O2 Sat by Pulse 100 Oximetry O2 Sat by Pulse Oximetry [ Anterior Bilateral Throughout] O2 Sat by Pulse Oximetry [ Assessment] 09/12/17 09/12/17 09/12/17 15:05 15:16 15:30 Temperature Pulse Rate 91 H 95 H Pulse Rate [ 102 H Anterior Bilateral Throughout] Respiratory 20 15 Rate Respiratory 22 Rate [Anterior Bilateral Throughout] Blood Pressure 116/39 98/38 O2 Sat by Pulse 100 100 Oximetry O2 Sat by Pulse Oximetry [ Anterior Bilateral Throughout] O2 Sat by Pulse Oximetry [ Assessment] 09/12/17 09/12/17 09/12/17 15:45 16:00 16:15 Temperature Pulse Rate 92 H 93 H 89 Pulse Rate [ Anterior Bilateral Throughout] Respiratory 20 20 Rate Respiratory Rate [Anterior Bilateral Throughout] Blood Pressure 104/48 103/58 127/55 O2 Sat by Pulse 100 100 Oximetry O2 Sat by Pulse Oximetry [ Anterior Bilateral Throughout] O2 Sat by Pulse Oximetry [ Assessment] 09/12/17 09/12/17 09/12/17 16:16 16:30 16:31 Temperature Pulse Rate 93 H 90 89 Pulse Rate [ Anterior Bilateral Throughout] Respiratory 15 17 Rate Respiratory Rate [Anterior Bilateral Throughout] Blood Pressure 103/58 127/55 119/46 O2 Sat by Pulse 100 100 Oximetry O2 Sat by Pulse Oximetry [ Anterior Bilateral Throughout] O2 Sat by Pulse Oximetry [ Assessment] 09/12/17 09/12/17 09/12/17 16:45 16:46 17:00 Temperature Pulse Rate 97 H 98 H 95 H Pulse Rate [ Anterior Bilateral Throughout] Respiratory 15 19 Rate Respiratory Rate [Anterior Bilateral Throughout] Blood Pressure 87/51 87/51 59/40 O2 Sat by Pulse 100 100 Oximetry O2 Sat by Pulse Oximetry [ Anterior Bilateral Throughout] O2 Sat by Pulse Oximetry [ Assessment] 09/12/17 09/12/17 09/12/17 17:01 17:14 17:16 Temperature 98.3 F Pulse Rate 93 H 100 H 89 Pulse Rate [ Anterior Bilateral Throughout] Respiratory 17 20 Rate Respiratory Rate [Anterior Bilateral Throughout] Blood Pressure 113/51 129/57 O2 Sat by Pulse 100 Oximetry O2 Sat by Pulse 100 Oximetry [ Anterior Bilateral Throughout] O2 Sat by Pulse Oximetry [ Assessment] - General physical appearance obese, other (lethargic. redrwls to pain) - Neck other (trach in place. NG- now clamped) - Respiratory normal expansion, other (vent) - Abdomen soft Hernia: other (midline dressing removed- serosang discharge on dressing. retention suture in place. upper incision: drk clot at base, with serosang secretions. repacked with kerlex. PD cath site: clean and dry. punctate bleeding at wound edges. wicked with kerlex. G tube: billious/pink. ) - Integumentary other (weeping at skin on uppper and lower extremities ) - Musculoskeletal other (+3-4 edema upper and lower extremities ) - Labs 09/12/17 15:22 09/11/17 23:12 Diabetes panel 09/11/17 Range/Units 23:12 Sodium 137 (137-145) mmol/L Potassium 4.0 (3.6-5.0) mmol/L Chloride 98.1 (98-107) mmol/L Carbon Dioxide 21 L (22-30) mmol/L BUN 80 H (7-17) mg/dL Creatinine 2.1 H (0.7-1.2) mg/dL Glucose 170 H (65-100) mg/dL Calcium 8.0 L (8.4-10.2) mg/dL Calcium panel 09/11/17 Range/Units 23:12 Calcium 8.0 L (8.4-10.2) mg/dL Pituitary panel 09/11/17 Range/Units 23:12 Sodium 137 (137-145) mmol/L Potassium 4.0 (3.6-5.0) mmol/L Chloride 98.1 (98-107) mmol/L Carbon Dioxide 21 L (22-30) mmol/L BUN 80 H (7-17) mg/dL Creatinine 2.1 H (0.7-1.2) mg/dL Glucose 170 H (65-100) mg/dL Calcium 8.0 L (8.4-10.2) mg/dL Adrenal panel 09/11/17 Range/Units 23:12 Sodium 137 (137-145) mmol/L Potassium 4.0 (3.6-5.0) mmol/L Chloride 98.1 (98-107) mmol/L Carbon Dioxide 21 L (22-30) mmol/L BUN 80 H (7-17) mg/dL Creatinine 2.1 H (0.7-1.2) mg/dL Glucose 170 H (65-100) mg/dL Calcium 8.0 L (8.4-10.2) mg/dL
[2017-09-12] MEDS ORDERED: NACL 0.9% 500 ML 500 ML IV SCH (19:00)
[2017-09-12] MEDS ORDERED: TPN ADULT 1,800 ML IV SCH (20:00)
[2017-09-13] MEDS: NOVOLOG SUB-Q SCH ×5 (00:08→23:20)
[2017-09-13] MEDS: DUONEB *Not for PRN Use IH SCH ×4 (01:38→20:31)
[2017-09-13] MEDS: LEVOPHED 8 MG in NACL 0.9% 250ML 242 ML IV SCH ×4 (02:04→20:13)
[2017-09-13] MEDS: Vasostrict 20 UNIT in NACL 0.9% 100 ML IV SCH ×2 (03:19→13:08)
[2017-09-13] MEDS: fentaNYL DRIP Premix 2,000 MCG/100 ML BAG IV SCH ×2 (03:23→13:04)
[2017-09-13 06:01] LABS: Hematocrit 23.9 % (30.3-42.9); Hemoglobin 8.1 gm/dl (10.1-14.3); Mean Corpuscular HGB Conc 34 % (30-34); Mean Corpuscular Hemoglobin 30 pg (28-32); Mean Corpuscular Volume 88 fl (79-97); Platelet Count 137 K/mm3 (140-440); Red Blood Count 2.72 M/mm3 (3.65-5.03); Red Cell Distribution Width 19.5 % (13.2-15.2); White Blood Count 15.6 K/mm3 (4.5-11.0)
[2017-09-13] MEDS: D50W (25GM) Vial IV PRN (06:01)
[2017-09-13 06:27] LABS: Calcium 8.8 mg/dL (8.4-10.2); Chloride 99.2 mmol/L (98-107); Magnesium 1.8 mg/dL (1.7-2.3); Potassium 4.5 mmol/L (3.6-5.0)
[2017-09-13 06:50] LABS: Anisocytosis 1+; Basophils % (Manual) 0 % (0.0-1.8); Blastocytes % (Manual) 0 %; Eosinophils % (Manual) 0 % (0.0-4.3)
[2017-09-13 06:51] LABS: Diff Status Complete; Macrocytosis Few; Platelet Estimate Appears Decreased; Polychromasia Few
--- NOTE | 2017-09-13 08:31 | Progress Note ---
Assessment and Plan - Patient Problems (1) ESRD (end stage renal disease) on dialysis Current Visit: Yes Status: Acute Plan to address problem: Continue HD on MWF and Isolated UF on TTS as tolerated. HD today. Patient is on TPN. (2) Hyperkalemia Current Visit: Yes Status: Acute Plan to address problem: Improved. (3) Anemia Current Visit: No Status: Chronic Qualifiers: Anemia type: due to chronic kidney disease Iron deficiency anemia type: I Vitamin B12 deficiency anemia type: V Folate deficiency anemia type: F Bone marrow failure anemia type: B Hemolytic anemia type: H Other causes of anemia: O Chronic kidney disease stage: on chronic dialysis Qualified Code(s ): N18.6 - End stage renal disease; D63.1 - Anemia in chronic kidney disease; Z99.2 - Dependence on renal dialysis Plan to address problem: S/p multiple units of PRBC. Epogen on dialysis days. (4) Hypotension Current Visit: Yes Status: Chronic Qualifiers: Hypotension type: H Trimester: T Plan to address problem: On Levophed. (5) Volume overload Current Visit: Yes Status: Acute Qualifiers: Hypervolemia type: H Plan to address problem: UF as tolerated. (6) Leukocytosis Current Visit: Yes Status: Acute Qualifiers: Leukocytosis type: unspecified Qualified Code(s): D72.829 - Elevated white blood cell count, unspecified Plan to address problem: Improving. (7) Acute respiratory failure with hypoxemia Current Visit: Yes Status: Acute Plan to address problem: On the vent. (8) Sepsis Current Visit: Yes Status: Acute Qualifiers: Sepsis type: S Subjective Date of service: 09/13/17 Principal diagnosis: respiratory failure, sepsis, shock rectal bleeding Interval history: Patient was seen and examined at the bedside. Objective - Vital Signs Vital signs: Vital Signs - 12hr 09/12/17 09/12/17 09/12/17 20:46 21:00 21:13 Temperature Pulse Rate 106 H 97 H Pulse Rate [ Anterior Bilateral Throughout] Respiratory 15 21 Rate Respiratory Rate [Anterior Bilateral Throughout] Blood Pressure 103/52 49/35 O2 Sat by Pulse 100 100 Oximetry O2 Sat by Pulse 100 Oximetry [ Assessment] 09/12/17 09/12/17 09/12/17 21:14 21:15 21:16 Temperature Pulse Rate 98 H 98 H Pulse Rate [ 100 H Anterior Bilateral Throughout] Respiratory 20 Rate Respiratory 23 Rate [Anterior Bilateral Throughout] Blood Pressure 143/69 O2 Sat by Pulse 100 100 Oximetry O2 Sat by Pulse Oximetry [ Assessment] 09/12/17 09/12/17 09/12/17 21:24 21:30 21:46 Temperature Pulse Rate 96 H 94 H Pulse Rate [ 96 H Anterior Bilateral Throughout] Respiratory 20 20 Rate Respiratory 20 Rate [Anterior Bilateral Throughout] Blood Pressure 143/60 142/55 O2 Sat by Pulse 100 100 Oximetry O2 Sat by Pulse Oximetry [ Assessment] 09/12/17 09/12/17 09/12/17 22:00 22:15 22:30 Temperature Pulse Rate 100 H 93 H 96 H Pulse Rate [ Anterior Bilateral Throughout] Respiratory 21 20 20 Rate Respiratory Rate [Anterior Bilateral Throughout] Blood Pressure 128/49 139/58 134/57 O2 Sat by Pulse 100 100 100 Oximetry O2 Sat by Pulse Oximetry [ Assessment] 09/12/17 09/12/17 09/12/17 22:45 23:00 23:16 Temperature Pulse Rate 92 H 96 H 91 H Pulse Rate [ Anterior Bilateral Throughout] Respiratory 21 12 21 Rate Respiratory Rate [Anterior Bilateral Throughout] Blood Pressure 140/60 140/60 135/48 O2 Sat by Pulse 100 100 100 Oximetry O2 Sat by Pulse Oximetry [ Assessment] 09/12/17 09/12/17 09/12/17 23:30 23:37 23:46 Temperature 98.9 F Pulse Rate 103 H 91 H Pulse Rate [ Anterior Bilateral Throughout] Respiratory 17 21 Rate Respiratory Rate [Anterior Bilateral Throughout] Blood Pressure 106/67 142/53 O2 Sat by Pulse 100 100 Oximetry O2 Sat by Pulse Oximetry [ Assessment] 09/13/17 09/13/17 09/13/17 00:00 00:16 00:30 Temperature Pulse Rate 101 H 94 H 92 H Pulse Rate [ Anterior Bilateral Throughout] Respiratory 13 21 21 Rate Respiratory Rate [Anterior Bilateral Throughout] Blood Pressure 119/48 146/50 134/56 O2 Sat by Pulse 100 100 100 Oximetry O2 Sat by Pulse Oximetry [ Assessment] 09/13/17 09/13/17 09/13/17 00:45 01:00 01:16 Temperature Pulse Rate 91 H 92 H 89 Pulse Rate [ Anterior Bilateral Throughout] Respiratory 21 22 20 Rate Respiratory Rate [Anterior Bilateral Throughout] Blood Pressure 143/56 134/51 135/53 O2 Sat by Pulse 100 100 100 Oximetry O2 Sat by Pulse Oximetry [ Assessment] 09/13/17 09/13/17 09/13/17 01:30 01:41 01:46 Temperature Pulse Rate 110 H 96 H Pulse Rate [ 104 H Anterior Bilateral Throughout] Respiratory 18 15 Rate Respiratory 20 Rate [Anterior Bilateral Throughout] Blood Pressure 119/48 114/43 O2 Sat by Pulse 100 100 Oximetry O2 Sat by Pulse Oximetry [ Assessment] 09/13/17 09/13/17 09/13/17 01:50 02:00 02:16 Temperature Pulse Rate 97 H 98 H Pulse Rate [ Anterior Bilateral Throughout] Respiratory 14 13 13 Rate Respiratory Rate [Anterior Bilateral Throughout] Blood Pressure 109/53 64/19 O2 Sat by Pulse 100 100 100 Oximetry O2 Sat by Pulse Oximetry [ Assessment] 09/13/17 09/13/17 09/13/17 02:30 02:46 03:00 Temperature Pulse Rate 95 H 97 H 102 H Pulse Rate [ Anterior Bilateral Throughout] Respiratory 22 25 H 22 Rate Respiratory Rate [Anterior Bilateral Throughout] Blood Pressure 131/59 128/51 100/52 O2 Sat by Pulse 100 100 100 Oximetry O2 Sat by Pulse Oximetry [ Assessment] 09/13/17 09/13/17 09/13/17 03:16 03:30 03:42 Temperature 99.5 F Pulse Rate 102 H 106 H Pulse Rate [ Anterior Bilateral Throughout] Respiratory 22 22 Rate Respiratory Rate [Anterior Bilateral Throughout] Blood Pressure 125/47 125/47 O2 Sat by Pulse 100 100 Oximetry O2 Sat by Pulse Oximetry [ Assessment] 09/13/17 09/13/17 09/13/17 03:46 04:00 04:16 Temperature Pulse Rate 104 H 105 H 110 H Pulse Rate [ Anterior Bilateral Throughout] Respiratory 22 19 26 H Rate Respiratory Rate [Anterior Bilateral Throughout] Blood Pressure 105/54 143/53 115/58 O2 Sat by Pulse 100 100 100 Oximetry O2 Sat by Pulse Oximetry [ Assessment] 09/13/17 09/13/17 09/13/17 04:30 04:46 05:00 Temperature Pulse Rate 104 H 107 H 107 H Pulse Rate [ Anterior Bilateral Throughout] Respiratory 22 23 17 Rate Respiratory Rate [Anterior Bilateral Throughout] Blood Pressure 115/58 90/42 137/49 O2 Sat by Pulse 100 100 100 Oximetry O2 Sat by Pulse Oximetry [ Assessment] 09/13/17 09/13/17 09/13/17 05:16 05:30 05:46 Temperature Pulse Rate 107 H 107 H 103 H Pulse Rate [ Anterior Bilateral Throughout] Respiratory 19 21 20 Rate Respiratory Rate [Anterior Bilateral Throughout] Blood Pressure 108/57 108/57 143/54 O2 Sat by Pulse 100 100 100 Oximetry O2 Sat by Pulse Oximetry [ Assessment] 09/13/17 06:00 Temperature Pulse Rate 115 H Pulse Rate [ Anterior Bilateral Throughout] Respiratory 17 Rate Respiratory Rate [Anterior Bilateral Throughout] Blood Pressure 128/93 O2 Sat by Pulse 100 Oximetry O2 Sat by Pulse Oximetry [ Assessment] - General Appearance General appearance: well-developed, appears stated age, obese, other (on vent, FiO2 30%, left IJ temp catheter) EENT: ATNC, PERRL Neck: other (trached) Respiratory: Present: Clear to Ascultation Cardiology: regular, S1S2, no murmurs Gastrointestinal: normoactive bowel sounds, other (PEG tube and MERVIN drain noted) Integumentary: no rash Neurologic: other (alert, grimaces) Musculoskeletal: other (1to2+ edema noted) - Lab 09/13/17 Unknown 09/13/17 Unknown Most recent lab results ABG pH 7.323 pH Units (7.350-7.450) L 09/09/17 Unknown ABG pCO2 41.1 mm Hg 09/09/17 Unknown ABG pO2 94.1 mm Hg (80.0-90.0) H 09/09/17 Unknown ABG HCO3 20.9 mmol/L (20.0-26.0) 09/09/17 Unknown ABG O2 Saturation 97.2 % (95.0-99.0) 09/09/17 Unknown Calcium 8.8 mg/dL (8.4-10.2) 09/13/17 Unknown Phosphorus 3.00 mg/dL (2.5-4.5) 09/13/17 Unknown Magnesium 1.80 mg/dL (1.7-2.3) 09/13/17 Unknown
[2017-09-13] MEDS ORDERED: NACL 0.9% 100 ML IV PRN ×2 (08:32→19:29)
--- NOTE | 2017-09-13 08:52 | Progress Note ---
Assessment and Plan Acute bacterial peritonitis/abscess s/p exlap. WBC slowly improving on antibiotics,but still pressors dependent. Surgery and ID following Shock. On pressors. Per review with the family, the pt had low BP problems before OPD, at one point on Midodrine??Postural vasovagal problems?? Anemia. PRBC given, but trend to trickle down w/o gross bleding.Concern for coagulopathy in view of prior transfusions, HD pt. SBO w wound dehiscence. Acute respiratory failure, hypoxia. On Vent support. Morbid obesity, ESRD Sepsis, on antibiotics. LGIB status post acute blood loss anemia. AMS Rec: Update ABG Update CXR in view of some chest congestion Cards consult regarding persistent hypotension Art line by anesthesia or vascular surgery ordered. Already attempted last night. Hematology consult to review blood product replacement , coagulopathy concerns. Gentle volume, Albumin expansion Wean pressors, set goal of BP 90/60-100/60 mm hg and monitor SX Had extensive discussion with family and medical team. All verbal orders reviewed. Goals of care reassessed with the pt family. Remains full code. All questions answered. Prognosis is guarded . critical care time was 40 minutes of [id number] evaluation and coordination of care Subjective Date of service: 09/13/17 Principal diagnosis: respiratory failure, sepsis, shock rectal bleeding Interval history: Arousable, on ventilator support support Objective Vital Signs - 12hr 09/12/17 09/12/17 09/12/17 21:00 21:13 21:14 Temperature Pulse Rate 97 H Pulse Rate [ 100 H Anterior Bilateral Throughout] Respiratory 21 Rate Respiratory 23 Rate [Anterior Bilateral Throughout] Blood Pressure 49/35 O2 Sat by Pulse 100 Oximetry O2 Sat by Pulse 100 Oximetry [ Assessment] 09/12/17 09/12/17 09/12/17 21:15 21:16 21:24 Temperature Pulse Rate 98 H 98 H Pulse Rate [ 96 H Anterior Bilateral Throughout] Respiratory 20 Rate Respiratory 20 Rate [Anterior Bilateral Throughout] Blood Pressure 143/69 O2 Sat by Pulse 100 100 Oximetry O2 Sat by Pulse Oximetry [ Assessment] 09/12/17 09/12/17 09/12/17 21:30 21:46 22:00 Temperature Pulse Rate 96 H 94 H 100 H Pulse Rate [ Anterior Bilateral Throughout] Respiratory 20 20 21 Rate Respiratory Rate [Anterior Bilateral Throughout] Blood Pressure 143/60 142/55 128/49 O2 Sat by Pulse 100 100 100 Oximetry O2 Sat by Pulse Oximetry [ Assessment] 09/12/17 09/12/17 09/12/17 22:15 22:30 22:45 Temperature Pulse Rate 93 H 96 H 92 H Pulse Rate [ Anterior Bilateral Throughout] Respiratory 20 20 21 Rate Respiratory Rate [Anterior Bilateral Throughout] Blood Pressure 139/58 134/57 140/60 O2 Sat by Pulse 100 100 100 Oximetry O2 Sat by Pulse Oximetry [ Assessment] 09/12/17 09/12/17 09/12/17 23:00 23:16 23:30 Temperature Pulse Rate 96 H 91 H 103 H Pulse Rate [ Anterior Bilateral Throughout] Respiratory 12 21 17 Rate Respiratory Rate [Anterior Bilateral Throughout] Blood Pressure 140/60 135/48 106/67 O2 Sat by Pulse 100 100 100 Oximetry O2 Sat by Pulse Oximetry [ Assessment] 09/12/17 09/12/17 09/13/17 23:37 23:46 00:00 Temperature 98.9 F Pulse Rate 91 H 101 H Pulse Rate [ Anterior Bilateral Throughout] Respiratory 21 13 Rate Respiratory Rate [Anterior Bilateral Throughout] Blood Pressure 142/53 119/48 O2 Sat by Pulse 100 100 Oximetry O2 Sat by Pulse Oximetry [ Assessment] 09/13/17 09/13/17 09/13/17 00:16 00:30 00:45 Temperature Pulse Rate 94 H 92 H 91 H Pulse Rate [ Anterior Bilateral Throughout] Respiratory 21 21 21 Rate Respiratory Rate [Anterior Bilateral Throughout] Blood Pressure 146/50 134/56 143/56 O2 Sat by Pulse 100 100 100 Oximetry O2 Sat by Pulse Oximetry [ Assessment] 09/13/17 09/13/17 09/13/17 01:00 01:16 01:30 Temperature Pulse Rate 92 H 89 110 H Pulse Rate [ Anterior Bilateral Throughout] Respiratory 22 20 18 Rate Respiratory Rate [Anterior Bilateral Throughout] Blood Pressure 134/51 135/53 119/48 O2 Sat by Pulse 100 100 100 Oximetry O2 Sat by Pulse Oximetry [ Assessment] 09/13/17 09/13/17 09/13/17 01:41 01:46 01:50 Temperature Pulse Rate 96 H Pulse Rate [ 104 H Anterior Bilateral Throughout] Respiratory 15 14 Rate Respiratory 20 Rate [Anterior Bilateral Throughout] Blood Pressure 114/43 O2 Sat by Pulse 100 100 Oximetry O2 Sat by Pulse Oximetry [ Assessment] 09/13/17 09/13/17 09/13/17 02:00 02:16 02:30 Temperature Pulse Rate 97 H 98 H 95 H Pulse Rate [ Anterior Bilateral Throughout] Respiratory 13 13 22 Rate Respiratory Rate [Anterior Bilateral Throughout] Blood Pressure 109/53 64/19 131/59 O2 Sat by Pulse 100 100 100 Oximetry O2 Sat by Pulse Oximetry [ Assessment] 09/13/17 09/13/17 09/13/17 02:46 03:00 03:16 Temperature Pulse Rate 97 H 102 H 102 H Pulse Rate [ Anterior Bilateral Throughout] Respiratory 25 H 22 22 Rate Respiratory Rate [Anterior Bilateral Throughout] Blood Pressure 128/51 100/52 125/47 O2 Sat by Pulse 100 100 100 Oximetry O2 Sat by Pulse Oximetry [ Assessment] 09/13/17 09/13/17 09/13/17 03:30 03:42 03:46 Temperature 99.5 F Pulse Rate 106 H 104 H Pulse Rate [ Anterior Bilateral Throughout] Respiratory 22 22 Rate Respiratory Rate [Anterior Bilateral Throughout] Blood Pressure 125/47 105/54 O2 Sat by Pulse 100 100 Oximetry O2 Sat by Pulse Oximetry [ Assessment] 09/13/17 09/13/17 09/13/17 04:00 04:16 04:30 Temperature Pulse Rate 105 H 110 H 104 H Pulse Rate [ Anterior Bilateral Throughout] Respiratory 19 26 H 22 Rate Respiratory Rate [Anterior Bilateral Throughout] Blood Pressure 143/53 115/58 115/58 O2 Sat by Pulse 100 100 100 Oximetry O2 Sat by Pulse Oximetry [ Assessment] 09/13/17 09/13/17 09/13/17 04:46 05:00 05:16 Temperature Pulse Rate 107 H 107 H 107 H Pulse Rate [ Anterior Bilateral Throughout] Respiratory 23 17 19 Rate Respiratory Rate [Anterior Bilateral Throughout] Blood Pressure 90/42 137/49 108/57 O2 Sat by Pulse 100 100 100 Oximetry O2 Sat by Pulse Oximetry [ Assessment] 09/13/17 09/13/17 09/13/17 05:30 05:46 06:00 Temperature Pulse Rate 107 H 103 H 115 H Pulse Rate [ Anterior Bilateral Throughout] Respiratory 21 20 17 Rate Respiratory Rate [Anterior Bilateral Throughout] Blood Pressure 108/57 143/54 128/93 O2 Sat by Pulse 100 100 100 Oximetry O2 Sat by Pulse Oximetry [ Assessment] 09/13/17 09/13/17 09/13/17 07:00 07:16 07:30 Temperature Pulse Rate 109 H 95 H 96 H Pulse Rate [ Anterior Bilateral Throughout] Respiratory 25 H 21 22 Rate Respiratory Rate [Anterior Bilateral Throughout] Blood Pressure 135/61 99/75 148/56 O2 Sat by Pulse 100 100 100 Oximetry O2 Sat by Pulse Oximetry [ Assessment] 09/13/17 09/13/17 09/13/17 07:46 08:00 08:16 Temperature Pulse Rate 95 H 105 H 96 H Pulse Rate [ Anterior Bilateral Throughout] Respiratory 22 17 20 Rate Respiratory Rate [Anterior Bilateral Throughout] Blood Pressure 119/48 119/48 121/39 O2 Sat by Pulse 100 100 100 Oximetry O2 Sat by Pulse Oximetry [ Assessment] Constitutional: no acute distress, alert, other (critically ill on vent, obese) Eyes: non-icteric ENT: oropharynx moist, other (NGT) Neck: supple, no lymphadenopathy, no JVD (large neck), other (trach in position , no bleeding) Effort: mildly labored Ascultation: Bilateral: clear ( ), diminished breath sounds (Limited expansion) , rhonchi (bilateral) Cardiovascular: regular rate and rhythm Gastrointestinal: absent bowel sounds, non-tender, other (abdominal incision with dressing noted, obese. Drain in place no bleeding) Integumentary: normal Extremities: no cyanosis, pink and warm, edema (2+ bilateral LE edema) Neurologic: non-focal exam, pupils equal and round, other (RA SS -0) Psychiatric: mood appropriate, affect normal CBC and BMP: 09/13/17 Unknown 09/13/17 Unknown ABG, PT/INR, D-dimer: ABG POC ABG pH 7.335 (7.35-7.45) L 08/30/17 03:31 ABG pH 7.323 pH Units (7.350-7.450) L 09/09/17 Unknown POC ABG pCO2 44.1 (35-45) 08/30/17 03:31 ABG pCO2 41.1 mm Hg 09/09/17 Unknown POC ABG pO2 117 (80-105) H 08/30/17 03:31 ABG pO2 94.1 mm Hg (80.0-90.0) H 09/09/17 Unknown POC ABG HCO3 23.5 08/30/17 03:31 POC ABG Total CO2 25 08/30/17 03:31 POC ABG O2 Sat 98 08/30/17 03:31 ABG O2 Saturation 97.2 % (95.0-99.0) 09/09/17 Unknown PT/INR, D-dimer PT 15.1 Sec. (12.2-14.9) H 08/31/17 18:15 INR 1.13 (0.87-1.13) 08/31/17 18:15 Abnormal lab findings: Abnormal Labs 08/08/17 08/08/17 08/09/17 21:23 21:31 11:19 WBC 15.7 H RBC 2.93 L Hgb 8.7 L Hct 26.8 L MCV MCH RDW 19.2 H Plt Count Lymph % (Auto) [place] % (Auto) [place] # Seg Neutrophils % Seg Neuts % (Manual) Lymphocytes % (Manual) Monocytes % (Manual) Nucleated RBC % Seg Neutrophils # Seg Neutrophils # Man Lymphocytes # (Manual) Monocytes # (Manual) Eosinophils # (Manual) Basophils # (Manual) PT INR POC ABG pH 7.490 H ABG pH POC ABG pCO2 POC ABG pO2 122 H ABG pO2 ABG O2 Saturation ABG Base Excess ABG Hemoglobin Oxyhemoglobin Sodium Potassium Chloride Carbon Dioxide BUN Creatinine Glucose POC Glucose Calcium Phosphorus Magnesium Iron TIBC Ferritin AST ALT Alkaline Phosphatase Troponin T 0.133 H* C-Reactive Protein Total Protein Albumin Triglycerides HDL Cholesterol 26 L Miscellaneous Test Crossmatch 08/09/17 08/10/17 08/10/17 13:25 04:45 04:45 WBC 15.5 H RBC 2.97 L Hgb 8.9 L Hct 27.0 L MCV MCH RDW 19.2 H Plt Count Lymph % (Auto) [place] % (Auto) [place] # Seg Neutrophils % Seg Neuts % (Manual) 73.0 H Lymphocytes % (Manual) 7.0 L Monocytes % (Manual) 14.0 H Nucleated RBC % Seg Neutrophils # Seg Neutrophils # Man 11.3 H Lymphocytes # (Manual) 1.1 L Monocytes # (Manual) 2.2 H Eosinophils # (Manual) Basophils # (Manual) 0.2 H PT INR POC ABG pH ABG pH POC ABG pCO2 POC ABG pO2 ABG pO2 ABG O2 Saturation ABG Base Excess ABG Hemoglobin Oxyhemoglobin Sodium Potassium 3.3 L Chloride 97.3 L Carbon Dioxide 21 L BUN 23 H Creatinine 6.5 H Glucose POC Glucose Calcium 7.3 L Phosphorus Magnesium Iron TIBC Ferritin AST ALT Alkaline Phosphatase 138 H Troponin T 0.132 H* C-Reactive Protein Total Protein 4.8 L Albumin 1.4 L Triglycerides HDL Cholesterol Miscellaneous Test Crossmatch 08/11/17 08/11/17 08/12/17 04:00 04:00 05:50 WBC 19.3 H RBC 3.10 L Hgb 9.5 L Hct 28.2 L MCV MCH RDW 19.2 H Plt Count 463 H Lymph % (Auto) 7.5 L [place] % (Auto) 14.6 H [place] # 2.8 H Seg Neutrophils % 77.0 H Seg Neuts % (Manual) Lymphocytes % (Manual) Monocytes % (Manual) Nucleated RBC % Seg Neutrophils # 14.8 H Seg Neutrophils # Man Lymphocytes # (Manual) Monocytes # (Manual) Eosinophils # (Manual) Basophils # (Manual) PT INR POC ABG pH ABG pH POC ABG pCO2 POC ABG pO2 ABG pO2 ABG O2 Saturation ABG Base Excess ABG Hemoglobin Oxyhemoglobin Sodium 136 L 136 L Potassium 3.3 L Chloride 96.3 L 96.6 L Carbon Dioxide BUN 26 H 26 H Creatinine 6.4 H 6.2 H Glucose 135 H 133 H POC Glucose Calcium 8.2 L Phosphorus Magnesium 1.30 L Iron TIBC Ferritin AST ALT Alkaline Phosphatase 139 H Troponin T C-Reactive Protein Total Protein 5.5 L Albumin 1.7 L Triglycerides HDL Cholesterol Miscellaneous Test Crossmatch 08/12/17 08/12/17 08/12/17 05:50 05:50 05:50 WBC 20.1 H RBC 3.06 L Hgb 9.3 L Hct 27.9 L MCV MCH RDW 18.4 H Plt Count 471 H Lymph % (Auto) [place] % (Auto) [place] # Seg Neutrophils % Seg Neuts % (Manual) 85.0 H Lymphocytes % (Manual) 8.0 L Monocytes % (Manual) Nucleated RBC % Seg Neutrophils # Seg Neutrophils # Man 17.1 H Lymphocytes # (Manual) Monocytes # (Manual) 1.0 H Eosinophils # (Manual) Basophils # (Manual) PT 15.2 H INR 1.14 H POC ABG pH ABG pH POC ABG pCO2 POC ABG pO2 ABG pO2 ABG O2 Saturation ABG Base Excess ABG Hemoglobin Oxyhemoglobin Sodium Potassium Chloride Carbon Dioxide BUN Creatinine Glucose POC Glucose Calcium Phosphorus Magnesium Iron TIBC Ferritin AST ALT Alkaline Phosphatase Troponin T C-Reactive Protein 28.90 H Total Protein Albumin Triglycerides HDL Cholesterol Miscellaneous Test Crossmatch 08/12/17 08/13/17 08/13/17 16:23 06:14 06:14 WBC 21.8 H RBC 3.11 L Hgb 9.4 L Hct 28.2 L MCV MCH RDW 18.2 H Plt Count 492 H Lymph % (Auto) [place] % (Auto) [place] # Seg Neutrophils % Seg Neuts % (Manual) 73.0 H Lymphocytes % (Manual) 2.0 L Monocytes % (Manual) 15 H Nucleated RBC % Seg Neutrophils # Seg Neutrophils # Man 15.9 H Lymphocytes # (Manual) 0.4 L Monocytes # (Manual) 2.4 H Eosinophils # (Manual) Basophils # (Manual) PT INR POC ABG pH ABG pH POC ABG pCO2 POC ABG pO2 ABG pO2 ABG O2 Saturation ABG Base Excess ABG Hemoglobin Oxyhemoglobin Sodium Potassium Chloride 96.2 L Carbon Dioxide BUN 28 H Creatinine 5.6 H Glucose 114 H POC Glucose Calcium Phosphorus Magnesium Iron TIBC Ferritin AST ALT Alkaline Phosphatase Troponin T C-Reactive Protein 26.10 H Total Protein Albumin Triglycerides HDL Cholesterol Miscellaneous Test Crossmatch 08/13/17 08/14/17 08/14/17 16:39 04:00 04:00 WBC 22.1 H RBC 3.25 L Hgb 9.9 L Hct 29.5 L MCV MCH RDW 17.9 H Plt Count 525 H Lymph % (Auto) [place] % (Auto) [place] # Seg Neutrophils % Seg Neuts % (Manual) 74.0 H Lymphocytes % (Manual) 8.0 L Monocytes % (Manual) 12.0 H Nucleated RBC % Seg Neutrophils # Seg Neutrophils # Man 16.4 H Lymphocytes # (Manual) Monocytes # (Manual) 2.7 H Eosinophils # (Manual) Basophils # (Manual) PT INR POC ABG pH ABG pH POC ABG pCO2 POC ABG pO2 ABG pO2 ABG O2 Saturation ABG Base Excess ABG Hemoglobin Oxyhemoglobin Sodium 134 L Potassium 3.3 L Chloride 93.3 L Carbon Dioxide BUN 27 H Creatinine 6.0 H Glucose 152 H POC Glucose 151 H Calcium Phosphorus Magnesium Iron TIBC Ferritin AST ALT Alkaline Phosphatase Troponin T C-Reactive Protein Total Protein Albumin Triglycerides HDL Cholesterol Miscellaneous Test Crossmatch 08/15/17 08/16/17 08/16/17 09:10 09:50 09:50 WBC 31.1 H RBC 3.21 L Hgb 9.6 L Hct 29.3 L MCV MCH RDW 18.1 H Plt Count 642 H Lymph % (Auto) [place] % (Auto) [place] # Seg Neutrophils % Seg Neuts % (Manual) 74.0 H Lymphocytes % (Manual) 4.0 L Monocytes % (Manual) 9.0 H Nucleated RBC % Seg Neutrophils # Seg Neutrophils # Man 23.0 H Lymphocytes # (Manual) Monocytes # (Manual) 2.8 H Eosinophils # (Manual) Basophils # (Manual) PT INR POC ABG pH ABG pH POC ABG pCO2 POC ABG pO2 ABG pO2 ABG O2 Saturation ABG Base Excess ABG Hemoglobin Oxyhemoglobin Sodium 136 L 136 L Potassium 3.5 L Chloride 97.6 L 94.9 L Carbon Dioxide BUN 27 H 28 H Creatinine 5.6 H 5.5 H Glucose 117 H 103 H POC Glucose Calcium Phosphorus Magnesium Iron TIBC Ferritin AST ALT Alkaline Phosphatase 137 H Troponin T C-Reactive Protein Total Protein 5.4 L Albumin 1.5 L Triglycerides HDL Cholesterol Miscellaneous Test Crossmatch 08/16/17 08/17/17 08/17/17 09:50 05:00 06:26 WBC RBC Hgb Hct MCV MCH RDW Plt Count Lymph % (Auto) [place] % (Auto) [place] # Seg Neutrophils % Seg Neuts % (Manual) Lymphocytes % (Manual) Monocytes % (Manual) Nucleated RBC % Seg Neutrophils # Seg Neutrophils # Man Lymphocytes # (Manual) Monocytes # (Manual) Eosinophils # (Manual) Basophils # (Manual) PT INR POC ABG pH ABG pH POC ABG pCO2 POC ABG pO2 ABG pO2 ABG O2 Saturation ABG Base Excess ABG Hemoglobin Oxyhemoglobin Sodium 134 L Potassium 3.0 L Chloride 97.8 L Carbon Dioxide BUN 30 H Creatinine 5.3 H Glucose 147 H POC Glucose 165 H Calcium 7.5 L Phosphorus Magnesium Iron TIBC Ferritin AST ALT Alkaline Phosphatase Troponin T C-Reactive Protein 32.30 H Total Protein Albumin Triglycerides HDL Cholesterol Miscellaneous Test Crossmatch 08/17/17 08/17/17 08/17/17 10:56 11:20 11:20 WBC 39.1 H RBC 3.10 L Hgb 9.2 L Hct 28.6 L MCV MCH RDW 18.3 H Plt Count 580 H Lymph % (Auto) [place] % (Auto) [place] # Seg Neutrophils % Seg Neuts % (Manual) 89.5 H Lymphocytes % (Manual) 3.5 L Monocytes % (Manual) Nucleated RBC % Seg Neutrophils # Seg Neutrophils # Man 35.0 H Lymphocytes # (Manual) Monocytes # (Manual) 2.5 H Eosinophils # (Manual) Basophils # (Manual) 0.2 H PT INR POC ABG pH 7.464 H ABG pH POC ABG pCO2 34.1 L POC ABG pO2 75 L ABG pO2 ABG O2 Saturation ABG Base Excess ABG Hemoglobin Oxyhemoglobin Sodium Potassium Chloride Carbon Dioxide BUN Creatinine Glucose POC Glucose Calcium Phosphorus Magnesium Iron TIBC Ferritin AST ALT Alkaline Phosphatase Troponin T C-Reactive Protein Total Protein Albumin Triglycerides HDL Cholesterol Miscellaneous Test Flexitest 1 H Crossmatch 08/17/17 08/17/17 08/17/17 11:20 16:57 20:20 WBC 34.4 H RBC 2.81 L Hgb 8.4 L Hct 26.0 L MCV MCH RDW 17.8 H Plt Count 455 H Lymph % (Auto) [place] % (Auto) [place] # Seg Neutrophils % Seg Neuts % (Manual) Lymphocytes % (Manual) 3.5 L Monocytes % (Manual) Nucleated RBC % 5.0 H Seg Neutrophils # Seg Neutrophils # Man 16.5 H Lymphocytes # (Manual) Monocytes # (Manual) 1.0 H Eosinophils # (Manual) Basophils # (Manual) PT 16.0 H INR 1.29 H POC ABG pH ABG pH POC ABG pCO2 POC ABG pO2 ABG pO2 ABG O2 Saturation ABG Base Excess ABG Hemoglobin Oxyhemoglobin Sodium 135 L Potassium 2.9 L* Chloride Carbon Dioxide 20 L BUN 32 H Creatinine 5.4 H Glucose 129 H POC Glucose Calcium 7.5 L Phosphorus Magnesium 1.50 L Iron TIBC Ferritin AST 85 H ALT Alkaline Phosphatase Troponin T C-Reactive Protein Total Protein 4.0 L D Albumin 1.6 L Triglycerides HDL Cholesterol Miscellaneous Test Crossmatch 08/17/17 08/17/17 08/18/17 20:54 23:47 04:26 WBC RBC Hgb Hct MCV MCH RDW Plt Count Lymph % (Auto) [place] % (Auto) [place] # Seg Neutrophils % Seg Neuts % (Manual) Lymphocytes % (Manual) Monocytes % (Manual) Nucleated RBC % Seg Neutrophils # Seg Neutrophils # Man Lymphocytes # (Manual) Monocytes # (Manual) Eosinophils # (Manual) Basophils # (Manual) PT INR POC ABG pH 7.557 H ABG pH POC ABG pCO2 23.1 L 29.0 L POC ABG pO2 187 H 148 H ABG pO2 ABG O2 Saturation ABG Base Excess ABG Hemoglobin Oxyhemoglobin Sodium Potassium Chloride Carbon Dioxide BUN Creatinine Glucose POC Glucose 188 H Calcium Phosphorus Magnesium Iron TIBC Ferritin AST ALT Alkaline Phosphatase Troponin T C-Reactive Protein Total Protein Albumin Triglycerides HDL Cholesterol Miscellaneous Test Crossmatch 08/18/17 08/18/17 08/18/17 05:51 11:44 17:07 WBC RBC Hgb Hct MCV MCH RDW Plt Count Lymph % (Auto) [place] % (Auto) [place] # Seg Neutrophils % Seg Neuts % (Manual) Lymphocytes % (Manual) Monocytes % (Manual) Nucleated RBC % Seg Neutrophils # Seg Neutrophils # Man Lymphocytes # (Manual) Monocytes # (Manual) Eosinophils # (Manual) Basophils # (Manual) PT INR POC ABG pH ABG pH POC ABG pCO2 POC ABG pO2 ABG pO2 ABG O2 Saturation ABG Base Excess ABG Hemoglobin Oxyhemoglobin Sodium Potassium Chloride Carbon Dioxide BUN Creatinine Glucose POC Glucose 202 H 195 H 182 H Calcium Phosphorus Magnesium Iron TIBC Ferritin AST ALT Alkaline Phosphatase Troponin T C-Reactive Protein Total Protein Albumin Triglycerides HDL Cholesterol Miscellaneous Test Crossmatch 08/18/17 08/18/17 08/18/17 23:45 Unknown Unknown WBC 39.0 H RBC 2.84 L Hgb 8.4 L Hct 26.5 L MCV MCH RDW 18.0 H Plt Count 476 H Lymph % (Auto) [place] % (Auto) [place] # Seg Neutrophils % Seg Neuts % (Manual) Lymphocytes % (Manual) 7.0 L Monocytes % (Manual) 10.0 H Nucleated RBC % 3.0 H Seg Neutrophils # Seg Neutrophils # Man 15.6 H Lymphocytes # (Manual) Monocytes # (Manual) 3.9 H Eosinophils # (Manual) Basophils # (Manual) PT INR POC ABG pH ABG pH POC ABG pCO2 POC ABG pO2 ABG pO2 ABG O2 Saturation ABG Base Excess ABG Hemoglobin Oxyhemoglobin Sodium Potassium Chloride Carbon Dioxide 19 L BUN 34 H Creatinine 5.6 H Glucose 201 H POC Glucose 163 H Calcium 7.8 L Phosphorus 1.90 L D Magnesium 1.60 L Iron TIBC Ferritin AST ALT Alkaline Phosphatase Troponin T C-Reactive Protein Total Protein Albumin Triglycerides HDL Cholesterol Miscellaneous Test Crossmatch 08/19/17 08/19/17 08/19/17 04:18 05:00 05:00 WBC 40.0 H RBC 2.46 L Hgb 7.3 L Hct 22.6 L MCV MCH RDW 18.1 H Plt Count Lymph % (Auto) [place] % (Auto) [place] # Seg Neutrophils % Seg Neuts % (Manual) Lymphocytes % (Manual) 8.0 L Monocytes % (Manual) Nucleated RBC % 2.0 H Seg Neutrophils # Seg Neutrophils # Man 16.4 H Lymphocytes # (Manual) Monocytes # (Manual) 1.2 H Eosinophils # (Manual) 1.2 H Basophils # (Manual) PT INR POC ABG pH 7.463 H ABG pH POC ABG pCO2 29.7 L POC ABG pO2 134 H ABG pO2 ABG O2 Saturation ABG Base Excess ABG Hemoglobin Oxyhemoglobin Sodium Potassium 5.1 H D Chloride Carbon Dioxide 20 L BUN 40 H Creatinine 5.3 H Glucose 128 H POC Glucose Calcium 7.8 L Phosphorus 1.90 L Magnesium Iron TIBC Ferritin AST ALT Alkaline Phosphatase Troponin T C-Reactive Protein Total Protein Albumin Triglycerides HDL Cholesterol Miscellaneous Test Crossmatch 08/19/17 08/19/17 08/19/17 05:19 07:37 09:52 WBC 45.0 H* RBC 2.50 L Hgb 7.5 L Hct 24.5 L MCV 98 H MCH RDW 18.4 H Plt Count Lymph % (Auto) [place] % (Auto) [place] # Seg Neutrophils % Seg Neuts % (Manual) 81.5 H Lymphocytes % (Manual) 4.0 L Monocytes % (Manual) Nucleated RBC % 1.0 H Seg Neutrophils # Seg Neutrophils # Man 36.7 H Lymphocytes # (Manual) Monocytes # (Manual) Eosinophils # (Manual) Basophils # (Manual) PT INR POC ABG pH ABG pH POC ABG pCO2 POC ABG pO2 ABG pO2 ABG O2 Saturation ABG Base Excess ABG Hemoglobin Oxyhemoglobin Sodium Potassium Chloride Carbon Dioxide BUN Creatinine Glucose POC Glucose 142 H Calcium Phosphorus Magnesium Iron TIBC Ferritin AST ALT Alkaline Phosphatase Troponin T C-Reactive Protein 34.20 H Total Protein Albumin Triglycerides HDL Cholesterol Miscellaneous Test Crossmatch 08/19/17 08/19/17 08/20/17 11:16 18:12 00:35 WBC RBC Hgb Hct MCV MCH RDW Plt Count Lymph % (Auto) [place] % (Auto) [place] # Seg Neutrophils % Seg Neuts % (Manual) Lymphocytes % (Manual) Monocytes % (Manual) Nucleated RBC % Seg Neutrophils # Seg Neutrophils # Man Lymphocytes # (Manual) Monocytes # (Manual) Eosinophils # (Manual) Basophils # (Manual) PT INR POC ABG pH ABG pH POC ABG pCO2 POC ABG pO2 ABG pO2 ABG O2 Saturation ABG Base Excess ABG Hemoglobin Oxyhemoglobin Sodium Potassium Chloride Carbon Dioxide BUN Creatinine Glucose POC Glucose 143 H 137 H 164 H Calcium Phosphorus Magnesium Iron TIBC Ferritin AST ALT Alkaline Phosphatase Troponin T C-Reactive Protein Total Protein Albumin Triglycerides HDL Cholesterol Miscellaneous Test Crossmatch 08/20/17 08/20/17 08/20/17 03:20 03:20 04:00 WBC 48.0 H* RBC 2.55 L Hgb 7.6 L Hct 23.4 L MCV MCH RDW 18.4 H Plt Count Lymph % (Auto) [place] % (Auto) [place] # Seg Neutrophils % Seg Neuts % (Manual) 90.0 H Lymphocytes % (Manual) 3.0 L Monocytes % (Manual) Nucleated RBC % Seg Neutrophils # Seg Neutrophils # Man 43.2 H Lymphocytes # (Manual) Monocytes # (Manual) 1.4 H Eosinophils # (Manual) 0.5 H Basophils # (Manual) PT INR POC ABG pH 7.499 H ABG pH POC ABG pCO2 29.1 L POC ABG pO2 ABG pO2 ABG O2 Saturation ABG Base Excess ABG Hemoglobin Oxyhemoglobin Sodium 135 L Potassium Chloride Carbon Dioxide BUN 28 H Creatinine 4.0 H Glucose 140 H POC Glucose Calcium 8.0 L Phosphorus 1.70 L Magnesium 1.60 L Iron TIBC Ferritin AST ALT Alkaline Phosphatase Troponin T C-Reactive Protein Total Protein Albumin Triglycerides HDL Cholesterol Miscellaneous Test Crossmatch 08/20/17 08/20/17 08/20/17 05:02 12:05 13:12 WBC RBC Hgb Hct MCV MCH RDW Plt Count Lymph % (Auto) [place] % (Auto) [place] # Seg Neutrophils % Seg Neuts % (Manual) Lymphocytes % (Manual) Monocytes % (Manual) Nucleated RBC % Seg Neutrophils # Seg Neutrophils # Man Lymphocytes # (Manual) Monocytes # (Manual) Eosinophils # (Manual) Basophils # (Manual) PT INR POC ABG pH 7.537 H ABG pH POC ABG pCO2 27.9 L POC ABG pO2 79 L ABG pO2 ABG O2 Saturation ABG Base Excess ABG Hemoglobin Oxyhemoglobin Sodium Potassium Chloride Carbon Dioxide BUN Creatinine Glucose POC Glucose 158 H 203 H Calcium Phosphorus Magnesium Iron TIBC Ferritin AST ALT Alkaline Phosphatase Troponin T C-Reactive Protein Total Protein Albumin Triglycerides HDL Cholesterol Miscellaneous Test Crossmatch 08/20/17 08/21/17 08/21/17 17:13 00:47 03:14 WBC RBC Hgb Hct MCV MCH RDW Plt Count Lymph % (Auto) [place] % (Auto) [place] # Seg Neutrophils % Seg Neuts % (Manual) Lymphocytes % (Manual) Monocytes % (Manual) Nucleated RBC % Seg Neutrophils # Seg Neutrophils # Man Lymphocytes # (Manual) Monocytes # (Manual) Eosinophils # (Manual) Basophils # (Manual) PT INR POC ABG pH 7.481 H ABG pH POC ABG pCO2 29.6 L POC ABG pO2 ABG pO2 ABG O2 Saturation ABG Base Excess ABG Hemoglobin Oxyhemoglobin Sodium Potassium Chloride Carbon Dioxide BUN Creatinine Glucose POC Glucose 188 H 109 H Calcium Phosphorus Magnesium Iron TIBC Ferritin AST ALT Alkaline Phosphatase Troponin T C-Reactive Protein Total Protein Albumin Triglycerides HDL Cholesterol Miscellaneous Test Crossmatch 08/21/17 08/21/17 08/21/17 05:05 06:50 06:50 WBC 44.7 H* RBC 2.41 L Hgb 7.1 L Hct 22.1 L MCV MCH RDW 18.3 H Plt Count Lymph % (Auto) [place] % (Auto) [place] # Seg Neutrophils % Seg Neuts % (Manual) 89.0 H Lymphocytes % (Manual) 0 L Monocytes % (Manual) Nucleated RBC % 1.0 H Seg Neutrophils # Seg Neutrophils # Man 39.8 H Lymphocytes # (Manual) 0.0 L Monocytes # (Manual) 1.3 H Eosinophils # (Manual) Basophils # (Manual) PT INR POC ABG pH ABG pH POC ABG pCO2 POC ABG pO2 ABG pO2 ABG O2 Saturation ABG Base Excess ABG Hemoglobin Oxyhemoglobin Sodium 135 L Potassium Chloride Carbon Dioxide BUN 39 H Creatinine 4.4 H Glucose 147 H POC Glucose 166 H Calcium 8.1 L Phosphorus Magnesium Iron TIBC Ferritin AST ALT < 5 L Alkaline Phosphatase 164 H Troponin T C-Reactive Protein Total Protein 4.7 L Albumin 1.4 L Triglycerides HDL Cholesterol Miscellaneous Test Crossmatch 08/21/17 08/21/17 08/21/17 08:00 12:21 17:02 WBC RBC Hgb Hct MCV MCH RDW Plt Count Lymph % (Auto) [place] % (Auto) [place] # Seg Neutrophils % Seg Neuts % (Manual) Lymphocytes % (Manual) Monocytes % (Manual) Nucleated RBC % Seg Neutrophils # Seg Neutrophils # Man Lymphocytes # (Manual) Monocytes # (Manual) Eosinophils # (Manual) Basophils # (Manual) PT INR POC ABG pH ABG pH POC ABG pCO2 POC ABG pO2 ABG pO2 ABG O2 Saturation ABG Base Excess ABG Hemoglobin Oxyhemoglobin Sodium Potassium Chloride Carbon Dioxide BUN Creatinine Glucose POC Glucose 147 H 135 H Calcium Phosphorus Magnesium Iron TIBC Ferritin AST ALT Alkaline Phosphatase Troponin T C-Reactive Protein Total Protein Albumin Triglycerides HDL Cholesterol Miscellaneous Test Crossmatch See Detail 08/21/17 08/22/17 08/22/17 23:38 03:40 03:40 WBC 42.5 H* RBC 2.88 L Hgb 8.5 L Hct 26.3 L MCV MCH RDW 17.9 H Plt Count Lymph % (Auto) [place] % (Auto) [place] # Seg Neutrophils % Seg Neuts % (Manual) Lymphocytes % (Manual) 5.0 L Monocytes % (Manual) Nucleated RBC % Seg Neutrophils # Seg Neutrophils # Man 19.6 H Lymphocytes # (Manual) Monocytes # (Manual) 2.6 H Eosinophils # (Manual) Basophils # (Manual) PT INR POC ABG pH ABG pH POC ABG pCO2 POC ABG pO2 ABG pO2 ABG O2 Saturation ABG Base Excess ABG Hemoglobin Oxyhemoglobin Sodium Potassium 3.3 L D Chloride Carbon Dioxide BUN 27 H Creatinine 2.9 H Glucose 144 H POC Glucose 251 H Calcium 8.0 L Phosphorus 2.40 L Magnesium Iron TIBC Ferritin AST ALT Alkaline Phosphatase Troponin T C-Reactive Protein Total Protein Albumin Triglycerides HDL Cholesterol Miscellaneous Test Crossmatch 08/22/17 08/22/17 08/22/17 06:37 08:50 11:25 WBC RBC Hgb Hct MCV MCH RDW Plt Count Lymph % (Auto) [place] % (Auto) [place] # Seg Neutrophils % Seg Neuts % (Manual) Lymphocytes % (Manual) Monocytes % (Manual) Nucleated RBC % Seg Neutrophils # Seg Neutrophils # Man Lymphocytes # (Manual) Monocytes # (Manual) Eosinophils # (Manual) Basophils # (Manual) PT INR POC ABG pH ABG pH POC ABG pCO2 POC ABG pO2 ABG pO2 ABG O2 Saturation ABG Base Excess ABG Hemoglobin Oxyhemoglobin Sodium Potassium Chloride Carbon Dioxide BUN Creatinine Glucose POC Glucose 152 H 175 H Calcium Phosphorus Magnesium Iron TIBC Ferritin AST ALT Alkaline Phosphatase Troponin T C-Reactive Protein Total Protein Albumin Triglycerides HDL Cholesterol Miscellaneous Test Flexitest 1 H Crossmatch 08/22/17 08/22/17 08/22/17 16:25 17:56 23:03 WBC RBC Hgb Hct MCV MCH RDW Plt Count Lymph % (Auto) [place] % (Auto) [place] # Seg Neutrophils % Seg Neuts % (Manual) Lymphocytes % (Manual) Monocytes % (Manual) Nucleated RBC % Seg Neutrophils # Seg Neutrophils # Man Lymphocytes # (Manual) Monocytes # (Manual) Eosinophils # (Manual) Basophils # (Manual) PT INR POC ABG pH ABG pH POC ABG pCO2 POC ABG pO2 ABG pO2 ABG O2 Saturation ABG Base Excess ABG Hemoglobin Oxyhemoglobin Sodium Potassium Chloride Carbon Dioxide BUN Creatinine Glucose POC Glucose 232 H 192 H Calcium Phosphorus Magnesium Iron TIBC Ferritin AST ALT Alkaline Phosphatase Troponin T C-Reactive Protein 30.70 H Total Protein Albumin Triglycerides HDL Cholesterol Miscellaneous Test Crossmatch 08/23/17 08/23/17 08/23/17 05:36 08:50 12:14 WBC RBC Hgb Hct MCV MCH RDW Plt Count Lymph % (Auto) [place] % (Auto) [place] # Seg Neutrophils % Seg Neuts % (Manual) Lymphocytes % (Manual) Monocytes % (Manual) Nucleated RBC % Seg Neutrophils # Seg Neutrophils # Man Lymphocytes # (Manual) Monocytes # (Manual) Eosinophils # (Manual) Basophils # (Manual) PT INR POC ABG pH ABG pH POC ABG pCO2 POC ABG pO2 ABG pO2 ABG O2 Saturation ABG Base Excess ABG Hemoglobin Oxyhemoglobin Sodium Potassium Chloride 107.1 H Carbon Dioxide BUN 49 H Creatinine 3.3 H Glucose 172 H POC Glucose 206 H 238 H Calcium Phosphorus Magnesium 2.40 H Iron TIBC Ferritin AST ALT Alkaline Phosphatase Troponin T C-Reactive Protein Total Protein Albumin Triglycerides HDL Cholesterol Miscellaneous Test Crossmatch 08/23/17 08/23/17 08/24/17 17:21 23:13 04:00 WBC 34.2 H RBC 2.86 L Hgb 8.4 L Hct 25.9 L MCV MCH RDW 17.9 H Plt Count Lymph % (Auto) [place] % (Auto) [place] # Seg Neutrophils % Seg Neuts % (Manual) 85.0 H Lymphocytes % (Manual) 0.5 L Monocytes % (Manual) Nucleated RBC % 1.0 H Seg Neutrophils # Seg Neutrophils # Man 29.1 H Lymphocytes # (Manual) 0.2 L Monocytes # (Manual) 2.4 H Eosinophils # (Manual) Basophils # (Manual) PT INR POC ABG pH ABG pH POC ABG pCO2 POC ABG pO2 ABG pO2 ABG O2 Saturation ABG Base Excess ABG Hemoglobin Oxyhemoglobin Sodium Potassium Chloride Carbon Dioxide BUN Creatinine Glucose POC Glucose 226 H 183 H Calcium Phosphorus Magnesium Iron TIBC Ferritin AST ALT Alkaline Phosphatase Troponin T C-Reactive Protein Total Protein Albumin Triglycerides HDL Cholesterol Miscellaneous Test Crossmatch 08/24/17 08/24/17 08/24/17 05:06 09:30 12:04 WBC RBC Hgb Hct MCV MCH RDW Plt Count Lymph % (Auto) [place] % (Auto) [place] # Seg Neutrophils % Seg Neuts % (Manual) Lymphocytes % (Manual) Monocytes % (Manual) Nucleated RBC % Seg Neutrophils # Seg Neutrophils # Man Lymphocytes # (Manual) Monocytes # (Manual) Eosinophils # (Manual) Basophils # (Manual) PT INR POC ABG pH ABG pH POC ABG pCO2 POC ABG pO2 ABG pO2 ABG O2 Saturation ABG Base Excess ABG Hemoglobin Oxyhemoglobin Sodium Potassium Chloride Carbon Dioxide BUN 46 H Creatinine 2.5 H Glucose 176 H POC Glucose 201 H 181 H Calcium Phosphorus Magnesium Iron TIBC Ferritin AST ALT Alkaline Phosphatase Troponin T C-Reactive Protein Total Protein Albumin Triglycerides HDL Cholesterol Miscellaneous Test Crossmatch 08/24/17 08/24/17 08/25/17 18:04 23:05 05:05 WBC RBC Hgb Hct MCV MCH RDW Plt Count Lymph % (Auto) [place] % (Auto) [place] # Seg Neutrophils % Seg Neuts % (Manual) Lymphocytes % (Manual) Monocytes % (Manual) Nucleated RBC % Seg Neutrophils # Seg Neutrophils # Man Lymphocytes # (Manual) Monocytes # (Manual) Eosinophils # (Manual) Basophils # (Manual) PT INR POC ABG pH ABG pH POC ABG pCO2 POC ABG pO2 ABG pO2 ABG O2 Saturation ABG Base Excess ABG Hemoglobin Oxyhemoglobin Sodium Potassium Chloride Carbon Dioxide BUN Creatinine Glucose POC Glucose 189 H 175 H 190 H Calcium Phosphorus Magnesium Iron TIBC Ferritin AST ALT Alkaline Phosphatase Troponin T C-Reactive Protein Total Protein Albumin Triglycerides HDL Cholesterol Miscellaneous Test Crossmatch 08/25/17 08/25/17 08/26/17 07:02 11:53 05:30 WBC 33.5 H RBC 2.47 L Hgb 7.3 L Hct 23.0 L MCV MCH RDW 21.3 H Plt Count Lymph % (Auto) [place] % (Auto) [place] # Seg Neutrophils % Seg Neuts % (Manual) 92.0 H Lymphocytes % (Manual) 1.0 L Monocytes % (Manual) Nucleated RBC % Seg Neutrophils # Seg Neutrophils # Man 30.8 H Lymphocytes # (Manual) 0.3 L Monocytes # (Manual) Eosinophils # (Manual) Basophils # (Manual) PT INR POC ABG pH ABG pH POC ABG pCO2 POC ABG pO2 ABG pO2 ABG O2 Saturation ABG Base Excess ABG Hemoglobin Oxyhemoglobin Sodium Potassium Chloride Carbon Dioxide BUN 32 H Creatinine 5.0 H D Glucose 117 H POC Glucose 191 H Calcium 8.0 L Phosphorus Magnesium Iron TIBC Ferritin AST ALT Alkaline Phosphatase Troponin T C-Reactive Protein Total Protein Albumin Triglycerides HDL Cholesterol Miscellaneous Test Crossmatch 08/26/17 08/26/17 08/26/17 05:30 06:44 13:26 WBC RBC Hgb Hct MCV MCH RDW Plt Count Lymph % (Auto) [place] % (Auto) [place] # Seg Neutrophils % Seg Neuts % (Manual) Lymphocytes % (Manual) Monocytes % (Manual) Nucleated RBC % Seg Neutrophils # Seg Neutrophils # Man Lymphocytes # (Manual) Monocytes # (Manual) Eosinophils # (Manual) Basophils # (Manual) PT INR POC ABG pH ABG pH POC ABG pCO2 POC ABG pO2 ABG pO2 ABG O2 Saturation ABG Base Excess ABG Hemoglobin Oxyhemoglobin Sodium Potassium 5.2 H Chloride Carbon Dioxide BUN 80 H Creatinine 3.4 H Glucose 193 H POC Glucose 232 H 207 H Calcium 8.3 L Phosphorus 6.80 H D Magnesium 2.60 H Iron TIBC Ferritin AST 135 H ALT Alkaline Phosphatase 211 H Troponin T C-Reactive Protein Total Protein 4.8 L Albumin 2.0 L Triglycerides HDL Cholesterol Miscellaneous Test Crossmatch 08/27/17 08/27/17 08/27/17 01:08 06:20 06:20 WBC 35.0 H RBC 2.75 L Hgb 8.4 L Hct 25.1 L MCV MCH RDW 21.8 H Plt Count Lymph % (Auto) [place] % (Auto) [place] # Seg Neutrophils % Seg Neuts % (Manual) Lymphocytes % (Manual) 4.5 L Monocytes % (Manual) Nucleated RBC % Seg Neutrophils # Seg Neutrophils # Man 31.9 H Lymphocytes # (Manual) Monocytes # (Manual) 1.2 H Eosinophils # (Manual) Basophils # (Manual) PT INR POC ABG pH ABG pH POC ABG pCO2 POC ABG pO2 ABG pO2 ABG O2 Saturation ABG Base Excess ABG Hemoglobin Oxyhemoglobin Sodium Potassium Chloride Carbon Dioxide BUN 61 H Creatinine 2.6 H Glucose 184 H POC Glucose 146 H Calcium Phosphorus 4.90 H D Magnesium Iron TIBC Ferritin AST ALT Alkaline Phosphatase Troponin T C-Reactive Protein Total Protein Albumin Triglycerides HDL Cholesterol Miscellaneous Test Crossmatch 08/27/17 08/27/17 08/27/17 07:01 09:17 12:52 WBC RBC Hgb Hct MCV MCH RDW Plt Count Lymph % (Auto) [place] % (Auto) [place] # Seg Neutrophils % Seg Neuts % (Manual) Lymphocytes % (Manual) Monocytes % (Manual) Nucleated RBC % Seg Neutrophils # Seg Neutrophils # Man Lymphocytes # (Manual) Monocytes # (Manual) Eosinophils # (Manual) Basophils # (Manual) PT INR POC ABG pH ABG pH POC ABG pCO2 POC ABG pO2 ABG pO2 ABG O2 Saturation ABG Base Excess ABG Hemoglobin Oxyhemoglobin Sodium Potassium Chloride Carbon Dioxide BUN Creatinine Glucose POC Glucose 165 H 198 H 218 H Calcium Phosphorus Magnesium Iron TIBC Ferritin AST ALT Alkaline Phosphatase Troponin T C-Reactive Protein Total Protein Albumin Triglycerides HDL Cholesterol Miscellaneous Test Crossmatch 08/27/17 08/28/17 08/28/17 17:27 02:13 06:46 WBC RBC Hgb Hct MCV MCH RDW Plt Count Lymph % (Auto) [place] % (Auto) [place] # Seg Neutrophils % Seg Neuts % (Manual) Lymphocytes % (Manual) Monocytes % (Manual) Nucleated RBC % Seg Neutrophils # Seg Neutrophils # Man Lymphocytes # (Manual) Monocytes # (Manual) Eosinophils # (Manual) Basophils # (Manual) PT INR POC ABG pH ABG pH POC ABG pCO2 POC ABG pO2 ABG pO2 ABG O2 Saturation ABG Base Excess ABG Hemoglobin Oxyhemoglobin Sodium Potassium Chloride Carbon Dioxide BUN Creatinine Glucose POC Glucose 151 H 155 H 230 H Calcium Phosphorus Magnesium Iron TIBC Ferritin AST ALT Alkaline Phosphatase Troponin T C-Reactive Protein Total Protein Albumin Triglycerides HDL Cholesterol Miscellaneous Test Crossmatch 08/28/17 08/28/17 08/28/17 06:53 06:53 08:19 WBC 31.1 H RBC 2.26 L Hgb 6.8 L Hct 20.9 L MCV MCH RDW 21.7 H Plt Count Lymph % (Auto) [place] % (Auto) [place] # Seg Neutrophils % Seg Neuts % (Manual) 83.0 H Lymphocytes % (Manual) 4.0 L Monocytes % (Manual) Nucleated RBC % Seg Neutrophils # Seg Neutrophils # Man 25.8 H Lymphocytes # (Manual) Monocytes # (Manual) Eosinophils # (Manual) Basophils # (Manual) PT INR POC ABG pH ABG pH POC ABG pCO2 POC ABG pO2 ABG pO2 ABG O2 Saturation ABG Base Excess ABG Hemoglobin Oxyhemoglobin Sodium Potassium Chloride Carbon Dioxide BUN 81 H Creatinine 3.4 H Glucose 218 H POC Glucose 239 H Calcium Phosphorus 4.90 H Magnesium Iron TIBC Ferritin AST ALT Alkaline Phosphatase Troponin T C-Reactive Protein Total Protein Albumin Triglycerides HDL Cholesterol Miscellaneous Test Crossmatch 08/28/17 08/28/17 08/28/17 11:56 13:05 13:29 WBC RBC Hgb Hct MCV MCH RDW Plt Count Lymph % (Auto) [place] % (Auto) [place] # Seg Neutrophils % Seg Neuts % (Manual) Lymphocytes % (Manual) Monocytes % (Manual) Nucleated RBC % Seg Neutrophils # Seg Neutrophils # Man Lymphocytes # (Manual) Monocytes # (Manual) Eosinophils # (Manual) Basophils # (Manual) PT 16.7 H INR 1.29 H POC ABG pH ABG pH POC ABG pCO2 POC ABG pO2 338 H ABG pO2 ABG O2 Saturation ABG Base Excess ABG Hemoglobin Oxyhemoglobin Sodium Potassium Chloride Carbon Dioxide BUN Creatinine Glucose POC Glucose Calcium Phosphorus Magnesium Iron TIBC Ferritin AST ALT Alkaline Phosphatase Troponin T C-Reactive Protein Total Protein Albumin Triglycerides HDL Cholesterol Miscellaneous Test Crossmatch See Detail 08/28/17 08/28/17 08/29/17 16:22 19:20 04:24 WBC RBC Hgb Hct MCV MCH RDW Plt Count Lymph % (Auto) [place] % (Auto) [place] # Seg Neutrophils % Seg Neuts % (Manual) Lymphocytes % (Manual) Monocytes % (Manual) Nucleated RBC % Seg Neutrophils # Seg Neutrophils # Man Lymphocytes # (Manual) Monocytes # (Manual) Eosinophils # (Manual) Basophils # (Manual) PT INR POC ABG pH 7.469 H ABG pH POC ABG pCO2 POC ABG pO2 240 H ABG pO2 ABG O2 Saturation ABG Base Excess ABG Hemoglobin Oxyhemoglobin Sodium Potassium Chloride Carbon Dioxide BUN Creatinine Glucose POC Glucose 209 H 195 H Calcium Phosphorus Magnesium Iron TIBC Ferritin AST ALT Alkaline Phosphatase Troponin T C-Reactive Protein Total Protein Albumin Triglycerides HDL Cholesterol Miscellaneous Test Crossmatch 08/29/17 08/29/17 08/29/17 04:30 04:30 12:07 WBC 44.9 H* RBC Hgb Hct MCV MCH RDW 23.1 H Plt Count Lymph % (Auto) [place] % (Auto) [place] # Seg Neutrophils % Seg Neuts % (Manual) 38.0 L Lymphocytes % (Manual) 10.0 L Monocytes % (Manual) 10.0 H Nucleated RBC % 6.0 H Seg Neutrophils # Seg Neutrophils # Man 17.1 H Lymphocytes # (Manual) Monocytes # (Manual) 4.5 H Eosinophils # (Manual) Basophils # (Manual) PT INR POC ABG pH ABG pH POC ABG pCO2 POC ABG pO2 ABG pO2 ABG O2 Saturation ABG Base Excess ABG Hemoglobin Oxyhemoglobin Sodium Potassium Chloride Carbon Dioxide BUN 61 H Creatinine 2.4 H Glucose 226 H POC Glucose 200 H Calcium Phosphorus Magnesium Iron TIBC Ferritin AST ALT Alkaline Phosphatase Troponin T C-Reactive Protein Total Protein Albumin Triglycerides HDL Cholesterol Miscellaneous Test Crossmatch 08/29/17 08/29/17 08/29/17 12:30 12:30 17:23 WBC RBC Hgb Hct MCV MCH RDW Plt Count Lymph % (Auto) [place] % (Auto) [place] # Seg Neutrophils % Seg Neuts % (Manual) Lymphocytes % (Manual) Monocytes % (Manual) Nucleated RBC % Seg Neutrophils # Seg Neutrophils # Man Lymphocytes # (Manual) Monocytes # (Manual) Eosinophils # (Manual) Basophils # (Manual) PT INR POC ABG pH ABG pH POC ABG pCO2 POC ABG pO2 ABG pO2 ABG O2 Saturation ABG Base Excess ABG Hemoglobin Oxyhemoglobin Sodium Potassium Chloride Carbon Dioxide BUN Creatinine Glucose POC Glucose 270 H Calcium Phosphorus Magnesium Iron TIBC Ferritin AST ALT Alkaline Phosphatase Troponin T C-Reactive Protein 19.10 H Total Protein Albumin Triglycerides HDL Cholesterol Miscellaneous Test Flexitest 1 H Crossmatch 08/30/17 08/30/17 08/30/17 00:10 01:30 03:31 WBC RBC Hgb Hct MCV MCH RDW Plt Count Lymph % (Auto) [place] % (Auto) [place] # Seg Neutrophils % Seg Neuts % (Manual) Lymphocytes % (Manual) Monocytes % (Manual) Nucleated RBC % Seg Neutrophils # Seg Neutrophils # Man Lymphocytes # (Manual) Monocytes # (Manual) Eosinophils # (Manual) Basophils # (Manual) PT INR POC ABG pH 7.168 L 7.335 L ABG pH POC ABG pCO2 72.8 H POC ABG pO2 257 H 117 H ABG pO2 ABG O2 Saturation ABG Base Excess ABG Hemoglobin Oxyhemoglobin Sodium Potassium Chloride Carbon Dioxide BUN Creatinine Glucose POC Glucose 245 H Calcium Phosphorus Magnesium Iron TIBC Ferritin AST ALT Alkaline Phosphatase Troponin T C-Reactive Protein Total Protein Albumin Triglycerides HDL Cholesterol Miscellaneous Test Crossmatch 08/30/17 08/30/17 08/30/17 05:20 05:20 05:20 WBC 40.9 H* RBC 3.64 L Hgb Hct MCV MCH RDW 24.3 H Plt Count Lymph % (Auto) [place] % (Auto) [place] # Seg Neutrophils % Seg Neuts % (Manual) 80.0 H Lymphocytes % (Manual) 3.0 L Monocytes % (Manual) Nucleated RBC % 1.0 H Seg Neutrophils # Seg Neutrophils # Man 32.7 H Lymphocytes # (Manual) Monocytes # (Manual) Eosinophils # (Manual) Basophils # (Manual) PT INR POC ABG pH ABG pH POC ABG pCO2 POC ABG pO2 ABG pO2 ABG O2 Saturation ABG Base Excess ABG Hemoglobin Oxyhemoglobin Sodium Potassium Chloride Carbon Dioxide BUN 83 H Creatinine 2.9 H Glucose 334 H POC Glucose 309 H Calcium Phosphorus Magnesium Iron TIBC Ferritin AST ALT Alkaline Phosphatase Troponin T C-Reactive Protein Total Protein Albumin Triglycerides HDL Cholesterol Miscellaneous Test Crossmatch 08/30/17 08/30/17 08/31/17 12:18 17:36 00:17 WBC RBC Hgb Hct MCV MCH RDW Plt Count Lymph % (Auto) [place] % (Auto) [place] # Seg Neutrophils % Seg Neuts % (Manual) Lymphocytes % (Manual) Monocytes % (Manual) Nucleated RBC % Seg Neutrophils # Seg Neutrophils # Man Lymphocytes # (Manual) Monocytes # (Manual) Eosinophils # (Manual) Basophils # (Manual) PT INR POC ABG pH ABG pH POC ABG pCO2 POC ABG pO2 ABG pO2 ABG O2 Saturation ABG Base Excess ABG Hemoglobin Oxyhemoglobin Sodium Potassium Chloride Carbon Dioxide BUN Creatinine Glucose POC Glucose 273 H 293 H 360 H Calcium Phosphorus Magnesium Iron TIBC Ferritin AST ALT Alkaline Phosphatase Troponin T C-Reactive Protein Total Protein Albumin Triglycerides HDL Cholesterol Miscellaneous Test Crossmatch 08/31/17 08/31/17 08/31/17 05:30 05:30 05:32 WBC 29.9 H RBC 2.89 L Hgb 8.2 L Hct 24.7 L D MCV MCH RDW 24.4 H Plt Count Lymph % (Auto) [place] % (Auto) [place] # Seg Neutrophils % Seg Neuts % (Manual) Lymphocytes % (Manual) 2.0 L Monocytes % (Manual) Nucleated RBC % 2.0 H Seg Neutrophils # Seg Neutrophils # Man 18.5 H Lymphocytes # (Manual) 0.6 L Monocytes # (Manual) 0.9 H Eosinophils # (Manual) Basophils # (Manual) PT INR POC ABG pH ABG pH POC ABG pCO2 POC ABG pO2 ABG pO2 ABG O2 Saturation ABG Base Excess ABG Hemoglobin Oxyhemoglobin Sodium Potassium Chloride Carbon Dioxide BUN 62 H Creatinine 2.2 H Glucose 245 H POC Glucose 257 H Calcium Phosphorus 2.10 L D Magnesium 1.60 L Iron TIBC Ferritin AST ALT Alkaline Phosphatase Troponin T C-Reactive Protein Total Protein Albumin Triglycerides HDL Cholesterol Miscellaneous Test Crossmatch 08/31/17 08/31/17 08/31/17 11:56 12:05 18:14 WBC 32.5 H RBC 3.19 L Hgb 8.8 L Hct 27.9 L MCV MCH RDW 24.9 H Plt Count Lymph % (Auto) [place] % (Auto) [place] # Seg Neutrophils % Seg Neuts % (Manual) Lymphocytes % (Manual) 1.0 L Monocytes % (Manual) 12.0 H Nucleated RBC % 1.0 H Seg Neutrophils # Seg Neutrophils # Man 13.3 H Lymphocytes # (Manual) 0.3 L Monocytes # (Manual) 3.9 H Eosinophils # (Manual) Basophils # (Manual) PT INR POC ABG pH ABG pH POC ABG pCO2 POC ABG pO2 ABG pO2 ABG O2 Saturation ABG Base Excess ABG Hemoglobin Oxyhemoglobin Sodium Potassium Chloride Carbon Dioxide BUN Creatinine Glucose POC Glucose 245 H Calcium Phosphorus Magnesium Iron TIBC Ferritin AST ALT Alkaline Phosphatase Troponin T C-Reactive Protein Total Protein Albumin Triglycerides HDL Cholesterol Miscellaneous Test Crossmatch See Detail 08/31/17 08/31/17 08/31/17 18:14 18:15 18:22 WBC RBC Hgb Hct MCV MCH RDW Plt Count Lymph % (Auto) [place] % (Auto) [place] # Seg Neutrophils % Seg Neuts % (Manual) Lymphocytes % (Manual) Monocytes % (Manual) Nucleated RBC % Seg Neutrophils # Seg Neutrophils # Man Lymphocytes # (Manual) Monocytes # (Manual) Eosinophils # (Manual) Basophils # (Manual) PT 15.1 H INR POC ABG pH ABG pH POC ABG pCO2 POC ABG pO2 ABG pO2 ABG O2 Saturation ABG Base Excess ABG Hemoglobin Oxyhemoglobin Sodium 136 L Potassium Chloride Carbon Dioxide 21 L BUN 69 H Creatinine 2.3 H Glucose 227 H POC Glucose 240 H Calcium Phosphorus 2.40 L Magnesium 1.50 L Iron TIBC Ferritin AST 143 H ALT 114 H Alkaline Phosphatase 267 H Troponin T C-Reactive Protein Total Protein 4.1 L Albumin 1.8 L Triglycerides HDL Cholesterol Miscellaneous Test Crossmatch 08/31/17 09/01/17 09/01/17 23:53 05:00 05:00 WBC 33.9 H RBC 2.85 L Hgb 7.8 L Hct 24.8 L MCV MCH 27 L RDW 23.9 H Plt Count Lymph % (Auto) [place] % (Auto) [place] # Seg Neutrophils % Seg Neuts % (Manual) Lymphocytes % (Manual) 5.0 L Monocytes % (Manual) Nucleated RBC % Seg Neutrophils # Seg Neutrophils # Man 23.1 H Lymphocytes # (Manual) Monocytes # (Manual) Eosinophils # (Manual) Basophils # (Manual) PT INR POC ABG pH ABG pH POC ABG pCO2 POC ABG pO2 ABG pO2 ABG O2 Saturation ABG Base Excess ABG Hemoglobin Oxyhemoglobin Sodium Potassium Chloride Carbon Dioxide BUN 51 H Creatinine 1.8 H Glucose 195 H POC Glucose 301 H Calcium Phosphorus 1.70 L D Magnesium 1.60 L Iron TIBC Ferritin AST 80 H ALT 82 H Alkaline Phosphatase 243 H Troponin T C-Reactive Protein Total Protein 4.2 L Albumin 1.7 L Triglycerides HDL Cholesterol Miscellaneous Test Crossmatch 09/01/17 09/01/17 09/01/17 05:20 05:47 11:37 WBC RBC Hgb Hct MCV MCH RDW Plt Count Lymph % (Auto) [place] % (Auto) [place] # Seg Neutrophils % Seg Neuts % (Manual) Lymphocytes % (Manual) Monocytes % (Manual) Nucleated RBC % Seg Neutrophils # Seg Neutrophils # Man Lymphocytes # (Manual) Monocytes # (Manual) Eosinophils # (Manual) Basophils # (Manual) PT INR POC ABG pH ABG pH 7.348 L POC ABG pCO2 POC ABG pO2 ABG pO2 70.2 L ABG O2 Saturation ABG Base Excess ABG Hemoglobin 7.5 L Oxyhemoglobin Sodium Potassium Chloride Carbon Dioxide BUN Creatinine Glucose POC Glucose 230 H 254 H Calcium Phosphorus Magnesium Iron TIBC Ferritin AST ALT Alkaline Phosphatase Troponin T C-Reactive Protein Total Protein Albumin Triglycerides HDL Cholesterol Miscellaneous Test Crossmatch 09/01/17 09/01/17 09/02/17 17:39 23:14 04:55 WBC RBC Hgb Hct MCV MCH RDW Plt Count Lymph % (Auto) [place] % (Auto) [place] # Seg Neutrophils % Seg Neuts % (Manual) Lymphocytes % (Manual) Monocytes % (Manual) Nucleated RBC % Seg Neutrophils # Seg Neutrophils # Man Lymphocytes # (Manual) Monocytes # (Manual) Eosinophils # (Manual) Basophils # (Manual) PT INR POC ABG pH ABG pH POC ABG pCO2 POC ABG pO2 ABG pO2 124.8 H ABG O2 Saturation ABG Base Excess -2.9 L ABG Hemoglobin 5.8 L Oxyhemoglobin Sodium Potassium Chloride Carbon Dioxide BUN Creatinine Glucose POC Glucose 297 H 291 H Calcium Phosphorus Magnesium Iron TIBC Ferritin AST ALT Alkaline Phosphatase Troponin T C-Reactive Protein Total Protein Albumin Triglycerides HDL Cholesterol Miscellaneous Test Crossmatch 09/02/17 09/02/17 09/02/17 05:31 06:10 11:58 WBC RBC Hgb Hct MCV MCH RDW Plt Count Lymph % (Auto) [place] % (Auto) [place] # Seg Neutrophils % Seg Neuts % (Manual) Lymphocytes % (Manual) Monocytes % (Manual) Nucleated RBC % Seg Neutrophils # Seg Neutrophils # Man Lymphocytes # (Manual) Monocytes # (Manual) Eosinophils # (Manual) Basophils # (Manual) PT INR POC ABG pH ABG pH POC ABG pCO2 POC ABG pO2 ABG pO2 ABG O2 Saturation ABG Base Excess ABG Hemoglobin Oxyhemoglobin Sodium Potassium Chloride Carbon Dioxide BUN 68 H Creatinine 2.2 H Glucose 369 H POC Glucose 245 H 333 H Calcium 8.2 L Phosphorus Magnesium Iron TIBC Ferritin AST ALT Alkaline Phosphatase Troponin T C-Reactive Protein Total Protein Albumin Triglycerides HDL Cholesterol Miscellaneous Test Crossmatch 09/02/17 09/02/17 09/03/17 15:37 23:50 04:00 WBC RBC Hgb Hct MCV MCH RDW Plt Count Lymph % (Auto) [place] % (Auto) [place] # Seg Neutrophils % Seg Neuts % (Manual) Lymphocytes % (Manual) Monocytes % (Manual) Nucleated RBC % Seg Neutrophils # Seg Neutrophils # Man Lymphocytes # (Manual) Monocytes # (Manual) Eosinophils # (Manual) Basophils # (Manual) PT INR POC ABG pH ABG pH POC ABG pCO2 POC ABG pO2 ABG pO2 ABG O2 Saturation ABG Base Excess ABG Hemoglobin Oxyhemoglobin Sodium Potassium Chloride Carbon Dioxide BUN 59 H Creatinine 1.9 H Glucose 231 H POC Glucose 314 H 240 H Calcium 8.0 L Phosphorus Magnesium Iron TIBC Ferritin AST ALT Alkaline Phosphatase 265 H Troponin T C-Reactive Protein Total Protein 4.4 L Albumin 1.7 L Triglycerides 180 H HDL Cholesterol Miscellaneous Test Crossmatch 09/03/17 09/03/17 09/03/17 05:00 05:32 11:52 WBC 41.5 H* RBC 2.46 L Hgb 6.9 L Hct 21.3 L MCV MCH RDW 24.9 H Plt Count Lymph % (Auto) [place] % (Auto) [place] # Seg Neutrophils % Seg Neuts % (Manual) Lymphocytes % (Manual) 3.0 L Monocytes % (Manual) 9.5 H Nucleated RBC % 1.5 H Seg Neutrophils # Seg Neutrophils # Man 28.8 H Lymphocytes # (Manual) Monocytes # (Manual) 3.9 H Eosinophils # (Manual) Basophils # (Manual) PT INR POC ABG pH ABG pH POC ABG pCO2 POC ABG pO2 ABG pO2 ABG O2 Saturation ABG Base Excess ABG Hemoglobin Oxyhemoglobin Sodium Potassium Chloride Carbon Dioxide BUN Creatinine Glucose POC Glucose 188 H 285 H Calcium Phosphorus Magnesium Iron TIBC Ferritin AST ALT Alkaline Phosphatase Troponin T C-Reactive Protein Total Protein Albumin Triglycerides HDL Cholesterol Miscellaneous Test Crossmatch 09/03/17 09/03/17 09/03/17 16:55 17:44 23:56 WBC RBC Hgb Hct MCV MCH RDW Plt Count Lymph % (Auto) [place] % (Auto) [place] # Seg Neutrophils % Seg Neuts % (Manual) Lymphocytes % (Manual) Monocytes % (Manual) Nucleated RBC % Seg Neutrophils # Seg Neutrophils # Man Lymphocytes # (Manual) Monocytes # (Manual) Eosinophils # (Manual) Basophils # (Manual) PT INR POC ABG pH ABG pH POC ABG pCO2 POC ABG pO2 ABG pO2 ABG O2 Saturation ABG Base Excess ABG Hemoglobin Oxyhemoglobin Sodium Potassium Chloride Carbon Dioxide BUN Creatinine Glucose POC Glucose 217 H 193 H Calcium Phosphorus Magnesium Iron TIBC Ferritin AST ALT Alkaline Phosphatase Troponin T C-Reactive Protein Total Protein Albumin Triglycerides HDL Cholesterol Miscellaneous Test Crossmatch See Detail 09/03/17 09/04/17 09/04/17 Unknown 03:47 04:32 WBC 44.7 H* RBC 3.12 L Hgb 8.7 L Hct 26.7 L MCV MCH RDW 23.5 H Plt Count Lymph % (Auto) [place] % (Auto) [place] # Seg Neutrophils % Seg Neuts % (Manual) Lymphocytes % (Manual) 4.0 L Monocytes % (Manual) Nucleated RBC % 2.0 H Seg Neutrophils # Seg Neutrophils # Man 30.8 H Lymphocytes # (Manual) Monocytes # (Manual) 2.2 H Eosinophils # (Manual) Basophils # (Manual) PT INR POC ABG pH ABG pH POC ABG pCO2 POC ABG pO2 ABG pO2 133.4 H 135.0 H ABG O2 Saturation ABG Base Excess -2.5 L ABG Hemoglobin 5.8 L 7.9 L Oxyhemoglobin Sodium Potassium Chloride Carbon Dioxide BUN Creatinine Glucose POC Glucose Calcium Phosphorus Magnesium Iron TIBC Ferritin AST ALT Alkaline Phosphatase Troponin T C-Reactive Protein Total Protein Albumin Triglycerides HDL Cholesterol Miscellaneous Test Crossmatch 09/04/17 09/04/17 09/04/17 04:32 05:48 10:43 WBC RBC Hgb Hct MCV MCH RDW Plt Count Lymph % (Auto) [place] % (Auto) [place] # Seg Neutrophils % Seg Neuts % (Manual) Lymphocytes % (Manual) Monocytes % (Manual) Nucleated RBC % Seg Neutrophils # Seg Neutrophils # Man Lymphocytes # (Manual) Monocytes # (Manual) Eosinophils # (Manual) Basophils # (Manual) PT INR POC ABG pH ABG pH POC ABG pCO2 POC ABG pO2 ABG pO2 ABG O2 Saturation ABG Base Excess ABG Hemoglobin Oxyhemoglobin Sodium 136 L Potassium 5.2 H D Chloride 94.2 L Carbon Dioxide BUN 71 H Creatinine 2.3 H Glucose 235 H POC Glucose 329 H Calcium 8.3 L Phosphorus Magnesium Iron TIBC Ferritin AST ALT Alkaline Phosphatase Troponin T C-Reactive Protein Total Protein Albumin Triglycerides HDL Cholesterol Miscellaneous Test Flexitest 1 H Crossmatch 09/04/17 09/04/17 09/05/17 12:38 17:30 00:15 WBC RBC Hgb Hct MCV MCH RDW Plt Count Lymph % (Auto) [place] % (Auto) [place] # Seg Neutrophils % Seg Neuts % (Manual) Lymphocytes % (Manual) Monocytes % (Manual) Nucleated RBC % Seg Neutrophils # Seg Neutrophils # Man Lymphocytes # (Manual) Monocytes # (Manual) Eosinophils # (Manual) Basophils # (Manual) PT INR POC ABG pH ABG pH POC ABG pCO2 POC ABG pO2 ABG pO2 ABG O2 Saturation ABG Base Excess ABG Hemoglobin Oxyhemoglobin Sodium Potassium Chloride Carbon Dioxide BUN Creatinine Glucose POC Glucose 444 H 331 H 362 H Calcium Phosphorus Magnesium Iron TIBC Ferritin AST ALT Alkaline Phosphatase Troponin T C-Reactive Protein Total Protein Albumin Triglycerides HDL Cholesterol Miscellaneous Test Crossmatch 09/05/17 09/05/17 09/05/17 03:55 03:55 12:12 WBC 35.3 H RBC 2.87 L Hgb 8.1 L Hct 24.6 L MCV MCH RDW 23.3 H Plt Count Lymph % (Auto) [place] % (Auto) [place] # Seg Neutrophils % Seg Neuts % (Manual) 89.5 H Lymphocytes % (Manual) 3.0 L Monocytes % (Manual) Nucleated RBC % 2.5 H Seg Neutrophils # Seg Neutrophils # Man 31.6 H Lymphocytes # (Manual) 1.1 L Monocytes # (Manual) Eosinophils # (Manual) Basophils # (Manual) PT INR POC ABG pH ABG pH POC ABG pCO2 POC ABG pO2 ABG pO2 ABG O2 Saturation ABG Base Excess ABG Hemoglobin Oxyhemoglobin Sodium 136 L Potassium Chloride 94.7 L Carbon Dioxide BUN 55 H Creatinine 1.8 H Glucose 193 H POC Glucose 344 H Calcium 8.1 L Phosphorus Magnesium Iron TIBC Ferritin AST ALT Alkaline Phosphatase Troponin T C-Reactive Protein Total Protein Albumin Triglycerides HDL Cholesterol Miscellaneous Test Crossmatch 09/05/17 09/05/17 09/05/17 14:32 15:32 16:41 WBC RBC Hgb Hct MCV MCH RDW Plt Count Lymph % (Auto) [place] % (Auto) [place] # Seg Neutrophils % Seg Neuts % (Manual) Lymphocytes % (Manual) Monocytes % (Manual) Nucleated RBC % Seg Neutrophils # Seg Neutrophils # Man Lymphocytes # (Manual) Monocytes # (Manual) Eosinophils # (Manual) Basophils # (Manual) PT INR POC ABG pH ABG pH POC ABG pCO2 POC ABG pO2 ABG pO2 ABG O2 Saturation ABG Base Excess ABG Hemoglobin Oxyhemoglobin Sodium Potassium Chloride Carbon Dioxide BUN Creatinine Glucose POC Glucose 265 H 145 H 188 H Calcium Phosphorus Magnesium Iron TIBC Ferritin AST ALT Alkaline Phosphatase Troponin T C-Reactive Protein Total Protein Albumin Triglycerides HDL Cholesterol Miscellaneous Test Crossmatch 09/05/17 09/05/17 09/05/17 17:28 18:38 20:10 WBC RBC Hgb Hct MCV MCH RDW Plt Count Lymph % (Auto) [place] % (Auto) [place] # Seg Neutrophils % Seg Neuts % (Manual) Lymphocytes % (Manual) Monocytes % (Manual) Nucleated RBC % Seg Neutrophils # Seg Neutrophils # Man Lymphocytes # (Manual) Monocytes # (Manual) Eosinophils # (Manual) Basophils # (Manual) PT INR POC ABG pH ABG pH POC ABG pCO2 POC ABG pO2 ABG pO2 ABG O2 Saturation ABG Base Excess ABG Hemoglobin Oxyhemoglobin Sodium Potassium Chloride Carbon Dioxide BUN Creatinine Glucose POC Glucose 246 H 271 H 165 H Calcium Phosphorus Magnesium Iron TIBC Ferritin AST ALT Alkaline Phosphatase Troponin T C-Reactive Protein Total Protein Albumin Triglycerides HDL Cholesterol Miscellaneous Test Crossmatch 09/05/17 09/05/17 09/06/17 21:06 23:07 00:10 WBC RBC Hgb Hct MCV MCH RDW Plt Count Lymph % (Auto) [place] % (Auto) [place] # Seg Neutrophils % Seg Neuts % (Manual) Lymphocytes % (Manual) Monocytes % (Manual) Nucleated RBC % Seg Neutrophils # Seg Neutrophils # Man Lymphocytes # (Manual) Monocytes # (Manual) Eosinophils # (Manual) Basophils # (Manual) PT INR POC ABG pH ABG pH POC ABG pCO2 POC ABG pO2 ABG pO2 ABG O2 Saturation ABG Base Excess ABG Hemoglobin Oxyhemoglobin Sodium Potassium Chloride Carbon Dioxide BUN Creatinine Glucose POC Glucose 134 H 135 H 147 H Calcium Phosphorus Magnesium Iron TIBC Ferritin AST ALT Alkaline Phosphatase Troponin T C-Reactive Protein Total Protein Albumin Triglycerides HDL Cholesterol Miscellaneous Test Crossmatch 09/06/17 09/06/17 09/06/17 01:08 02:01 03:08 WBC RBC Hgb Hct MCV MCH RDW Plt Count Lymph % (Auto) [place] % (Auto) [place] # Seg Neutrophils % Seg Neuts % (Manual) Lymphocytes % (Manual) Monocytes % (Manual) Nucleated RBC % Seg Neutrophils # Seg Neutrophils # Man Lymphocytes # (Manual) Monocytes # (Manual) Eosinophils # (Manual) Basophils # (Manual) PT INR POC ABG pH ABG pH POC ABG pCO2 POC ABG pO2 ABG pO2 ABG O2 Saturation ABG Base Excess ABG Hemoglobin Oxyhemoglobin Sodium Potassium Chloride Carbon Dioxide BUN Creatinine Glucose POC Glucose 133 H 146 H 135 H Calcium Phosphorus Magnesium Iron TIBC Ferritin AST ALT Alkaline Phosphatase Troponin T C-Reactive Protein Total Protein Albumin Triglycerides HDL Cholesterol Miscellaneous Test Crossmatch 09/06/17 09/06/17 09/06/17 05:30 05:30 05:30 WBC 38.6 H RBC 2.95 L Hgb 8.3 L Hct 25.3 L MCV MCH RDW 22.2 H Plt Count Lymph % (Auto) [place] % (Auto) [place] # Seg Neutrophils % Seg Neuts % (Manual) Lymphocytes % (Manual) 2.0 L Monocytes % (Manual) Nucleated RBC % 5.0 H Seg Neutrophils # Seg Neutrophils # Man 25.9 H Lymphocytes # (Manual) 0.8 L Monocytes # (Manual) 1.9 H Eosinophils # (Manual) Basophils # (Manual) PT INR POC ABG pH ABG pH POC ABG pCO2 POC ABG pO2 ABG pO2 ABG O2 Saturation ABG Base Excess ABG Hemoglobin Oxyhemoglobin Sodium 135 L Potassium Chloride 93.5 L Carbon Dioxide BUN 82 H Creatinine 2.3 H Glucose 148 H POC Glucose Calcium Phosphorus Magnesium Iron TIBC Ferritin AST ALT Alkaline Phosphatase Troponin T C-Reactive Protein 2.80 H Total Protein Albumin Triglycerides HDL Cholesterol Miscellaneous Test Crossmatch 09/06/17 09/06/17 09/06/17 05:48 08:04 09:06 WBC RBC Hgb Hct MCV MCH RDW Plt Count Lymph % (Auto) [place] % (Auto) [place] # Seg Neutrophils % Seg Neuts % (Manual) Lymphocytes % (Manual) Monocytes % (Manual) Nucleated RBC % Seg Neutrophils # Seg Neutrophils # Man Lymphocytes # (Manual) Monocytes # (Manual) Eosinophils # (Manual) Basophils # (Manual) PT INR POC ABG pH ABG pH POC ABG pCO2 POC ABG pO2 ABG pO2 ABG O2 Saturation ABG Base Excess ABG Hemoglobin Oxyhemoglobin Sodium Potassium Chloride Carbon Dioxide BUN Creatinine Glucose POC Glucose 152 H 164 H 172 H Calcium Phosphorus Magnesium Iron TIBC Ferritin AST ALT Alkaline Phosphatase Troponin T C-Reactive Protein Total Protein Albumin Triglycerides HDL Cholesterol Miscellaneous Test Crossmatch 09/06/17 09/06/17 09/06/17 09:57 10:19 10:57 WBC RBC Hgb Hct MCV MCH RDW Plt Count Lymph % (Auto) [place] % (Auto) [place] # Seg Neutrophils % Seg Neuts % (Manual) Lymphocytes % (Manual) Monocytes % (Manual) Nucleated RBC % Seg Neutrophils # Seg Neutrophils # Man Lymphocytes # (Manual) Monocytes # (Manual) Eosinophils # (Manual) Basophils # (Manual) PT INR POC ABG pH ABG pH POC ABG pCO2 POC ABG pO2 ABG pO2 ABG O2 Saturation ABG Base Excess ABG Hemoglobin Oxyhemoglobin Sodium Potassium Chloride Carbon Dioxide BUN Creatinine Glucose POC Glucose 186 H 162 H Calcium Phosphorus Magnesium Iron TIBC Ferritin AST ALT Alkaline Phosphatase Troponin T C-Reactive Protein Total Protein Albumin Triglycerides HDL Cholesterol Miscellaneous Test Flexitest 1 H Crossmatch 09/06/17 09/06/17 09/06/17 13:12 13:40 17:36 WBC RBC Hgb 8.9 L Hct 28.5 L MCV MCH RDW Plt Count Lymph % (Auto) [place] % (Auto) [place] # Seg Neutrophils % Seg Neuts % (Manual) Lymphocytes % (Manual) Monocytes % (Manual) Nucleated RBC % Seg Neutrophils # Seg Neutrophils # Man Lymphocytes # (Manual) Monocytes # (Manual) Eosinophils # (Manual) Basophils # (Manual) PT INR POC ABG pH ABG pH POC ABG pCO2 POC ABG pO2 ABG pO2 ABG O2 Saturation ABG Base Excess ABG Hemoglobin Oxyhemoglobin Sodium Potassium Chloride Carbon Dioxide BUN Creatinine Glucose POC Glucose 166 H 161 H Calcium Phosphorus Magnesium Iron TIBC Ferritin AST ALT Alkaline Phosphatase Troponin T C-Reactive Protein Total Protein Albumin Triglycerides HDL Cholesterol Miscellaneous Test Crossmatch 09/07/17 09/07/17 09/07/17 00:13 03:50 03:50 WBC 47.0 H* RBC 2.81 L Hgb 8.1 L Hct 24.1 L MCV MCH RDW 22.5 H Plt Count Lymph % (Auto) [place] % (Auto) [place] # Seg Neutrophils % Seg Neuts % (Manual) Lymphocytes % (Manual) 9.0 L Monocytes % (Manual) Nucleated RBC % 6.0 H Seg Neutrophils # Seg Neutrophils # Man 27.3 H Lymphocytes # (Manual) Monocytes # (Manual) 0.9 H Eosinophils # (Manual) 1.9 H Basophils # (Manual) PT INR POC ABG pH ABG pH POC ABG pCO2 POC ABG pO2 ABG pO2 ABG O2 Saturation ABG Base Excess ABG Hemoglobin Oxyhemoglobin Sodium 136 L Potassium Chloride 96.3 L Carbon Dioxide BUN 61 H Creatinine 1.7 H Glucose 132 H POC Glucose 183 H Calcium 7.8 L Phosphorus Magnesium Iron TIBC Ferritin AST ALT Alkaline Phosphatase Troponin T C-Reactive Protein Total Protein Albumin Triglycerides HDL Cholesterol Miscellaneous Test Crossmatch 09/07/17 09/07/17 09/07/17 05:12 05:23 11:48 WBC RBC Hgb Hct MCV MCH RDW Plt Count Lymph % (Auto) [place] % (Auto) [place] # Seg Neutrophils % Seg Neuts % (Manual) Lymphocytes % (Manual) Monocytes % (Manual) Nucleated RBC % Seg Neutrophils # Seg Neutrophils # Man Lymphocytes # (Manual) Monocytes # (Manual) Eosinophils # (Manual) Basophils # (Manual) PT INR POC ABG pH ABG pH POC ABG pCO2 POC ABG pO2 ABG pO2 ABG O2 Saturation ABG Base Excess ABG Hemoglobin 7.7 L Oxyhemoglobin 94.8 L Sodium Potassium Chloride Carbon Dioxide BUN Creatinine Glucose POC Glucose 162 H 200 H Calcium Phosphorus Magnesium Iron TIBC Ferritin AST ALT Alkaline Phosphatase Troponin T C-Reactive Protein Total Protein Albumin Triglycerides HDL Cholesterol Miscellaneous Test Crossmatch 09/07/17 09/07/17 09/08/17 17:07 18:21 00:06 WBC RBC Hgb Hct MCV MCH RDW Plt Count Lymph % (Auto) [place] % (Auto) [place] # Seg Neutrophils % Seg Neuts % (Manual) Lymphocytes % (Manual) Monocytes % (Manual) Nucleated RBC % Seg Neutrophils # Seg Neutrophils # Man Lymphocytes # (Manual) Monocytes # (Manual) Eosinophils # (Manual) Basophils # (Manual) PT INR POC ABG pH ABG pH POC ABG pCO2 POC ABG pO2 ABG pO2 ABG O2 Saturation ABG Base Excess ABG Hemoglobin Oxyhemoglobin Sodium Potassium Chloride Carbon Dioxide BUN Creatinine Glucose POC Glucose 181 H 168 H Calcium Phosphorus Magnesium Iron TIBC Ferritin AST ALT Alkaline Phosphatase Troponin T C-Reactive Protein Total Protein Albumin Triglycerides HDL Cholesterol Miscellaneous Test Crossmatch See Detail 09/08/17 09/08/17 09/08/17 04:05 04:05 04:41 WBC 49.7 H* RBC 2.58 L Hgb 7.3 L Hct 22.7 L MCV MCH RDW 22.5 H Plt Count Lymph % (Auto) [place] % (Auto) [place] # Seg Neutrophils % Seg Neuts % (Manual) 90.5 H Lymphocytes % (Manual) 1.5 L Monocytes % (Manual) Nucleated RBC % Seg Neutrophils # Seg Neutrophils # Man 45.0 H Lymphocytes # (Manual) 0.7 L Monocytes # (Manual) 1.7 H Eosinophils # (Manual) Basophils # (Manual) PT INR POC ABG pH ABG pH POC ABG pCO2 POC ABG pO2 ABG pO2 ABG O2 Saturation ABG Base Excess ABG Hemoglobin Oxyhemoglobin Sodium 132 L Potassium Chloride 92.1 L Carbon Dioxide BUN 82 H Creatinine 2.2 H Glucose 162 H POC Glucose 235 H Calcium 8.3 L Phosphorus 5.20 H D Magnesium Iron TIBC Ferritin AST ALT Alkaline Phosphatase 199 H Troponin T C-Reactive Protein Total Protein 4.5 L Albumin 1.7 L Triglycerides HDL Cholesterol Miscellaneous Test Crossmatch 09/08/17 09/08/17 09/08/17 09:21 11:52 17:38 WBC RBC Hgb Hct MCV MCH RDW Plt Count Lymph % (Auto) [place] % (Auto) [place] # Seg Neutrophils % Seg Neuts % (Manual) Lymphocytes % (Manual) Monocytes % (Manual) Nucleated RBC % Seg Neutrophils # Seg Neutrophils # Man Lymphocytes # (Manual) Monocytes # (Manual) Eosinophils # (Manual) Basophils # (Manual) PT INR POC ABG pH ABG pH POC ABG pCO2 POC ABG pO2 ABG pO2 218.5 H ABG O2 Saturation 99.3 H ABG Base Excess -3.5 L ABG Hemoglobin 7.7 L Oxyhemoglobin Sodium Potassium Chloride Carbon Dioxide BUN Creatinine Glucose POC Glucose 220 H 194 H Calcium Phosphorus Magnesium Iron TIBC Ferritin AST ALT Alkaline Phosphatase Troponin T C-Reactive Protein Total Protein Albumin Triglycerides HDL Cholesterol Miscellaneous Test Crossmatch 09/09/17 09/09/17 09/09/17 00:24 03:37 03:37 WBC 33.5 H RBC 2.36 L Hgb 6.7 L Hct 20.9 L MCV MCH RDW 22.7 H Plt Count Lymph % (Auto) [place] % (Auto) [place] # Seg Neutrophils % Seg Neuts % (Manual) Lymphocytes % (Manual) Monocytes % (Manual) Nucleated RBC % Seg Neutrophils # Seg Neutrophils # Man Lymphocytes # (Manual) Monocytes # (Manual) Eosinophils # (Manual) Basophils # (Manual) PT INR POC ABG pH ABG pH POC ABG pCO2 POC ABG pO2 ABG pO2 ABG O2 Saturation ABG Base Excess ABG Hemoglobin Oxyhemoglobin Sodium 132 L Potassium Chloride 91.6 L Carbon Dioxide 21 L BUN 101 H Creatinine 2.6 H Glucose 156 H POC Glucose 182 H Calcium 8.3 L Phosphorus 5.90 H Magnesium 2.60 H Iron TIBC Ferritin AST ALT Alkaline Phosphatase Troponin T C-Reactive Protein Total Protein Albumin Triglycerides HDL Cholesterol Miscellaneous Test Crossmatch 09/09/17 09/09/17 09/09/17 05:29 12:03 18:05 WBC RBC Hgb Hct MCV MCH RDW Plt Count Lymph % (Auto) [place] % (Auto) [place] # Seg Neutrophils % Seg Neuts % (Manual) Lymphocytes % (Manual) Monocytes % (Manual) Nucleated RBC % Seg Neutrophils # Seg Neutrophils # Man Lymphocytes # (Manual) Monocytes # (Manual) Eosinophils # (Manual) Basophils # (Manual) PT INR POC ABG pH ABG pH POC ABG pCO2 POC ABG pO2 ABG pO2 ABG O2 Saturation ABG Base Excess ABG Hemoglobin Oxyhemoglobin Sodium Potassium Chloride Carbon Dioxide BUN Creatinine Glucose POC Glucose 168 H 143 H 173 H Calcium Phosphorus Magnesium Iron TIBC Ferritin AST ALT Alkaline Phosphatase Troponin T C-Reactive Protein Total Protein Albumin Triglycerides HDL Cholesterol Miscellaneous Test Crossmatch 09/09/17 09/09/17 09/10/17 23:30 Unknown 05:04 WBC RBC Hgb Hct MCV MCH RDW Plt Count Lymph % (Auto) [place] % (Auto) [place] # Seg Neutrophils % Seg Neuts % (Manual) Lymphocytes % (Manual) Monocytes % (Manual) Nucleated RBC % Seg Neutrophils # Seg Neutrophils # Man Lymphocytes # (Manual) Monocytes # (Manual) Eosinophils # (Manual) Basophils # (Manual) PT INR POC ABG pH ABG pH 7.323 L POC ABG pCO2 POC ABG pO2 ABG pO2 94.1 H ABG O2 Saturation ABG Base Excess -4.8 L ABG Hemoglobin 8.0 L Oxyhemoglobin 94.9 L Sodium Potassium Chloride Carbon Dioxide BUN Creatinine Glucose POC Glucose 212 H 155 H Calcium Phosphorus Magnesium Iron TIBC Ferritin AST ALT Alkaline Phosphatase Troponin T C-Reactive Protein Total Protein Albumin Triglycerides HDL Cholesterol Miscellaneous Test Crossmatch 09/10/17 09/10/17 09/10/17 07:00 09:55 12:22 WBC 24.7 H RBC 2.62 L Hgb 7.5 L Hct 22.5 L MCV MCH RDW 20.8 H Plt Count Lymph % (Auto) [place] % (Auto) [place] # Seg Neutrophils % Seg Neuts % (Manual) Lymphocytes % (Manual) Monocytes % (Manual) Nucleated RBC % Seg Neutrophils # Seg Neutrophils # Man Lymphocytes # (Manual) Monocytes # (Manual) Eosinophils # (Manual) Basophils # (Manual) PT INR POC ABG pH ABG pH POC ABG pCO2 POC ABG pO2 ABG pO2 ABG O2 Saturation ABG Base Excess ABG Hemoglobin Oxyhemoglobin Sodium Potassium Chloride 97.9 L Carbon Dioxide BUN 78 H Creatinine 2.0 H Glucose 126 H POC Glucose 183 H Calcium 8.2 L Phosphorus Magnesium Iron TIBC Ferritin AST ALT Alkaline Phosphatase Troponin T C-Reactive Protein Total Protein Albumin Triglycerides HDL Cholesterol Miscellaneous Test Crossmatch 09/11/17 09/11/17 09/11/17 00:08 03:50 05:28 WBC 21.6 H RBC 2.52 L Hgb 7.4 L Hct 22.2 L MCV MCH RDW 21.5 H Plt Count Lymph % (Auto) [place] % (Auto) [place] # Seg Neutrophils % Seg Neuts % (Manual) 92.0 H Lymphocytes % (Manual) 3.0 L Monocytes % (Manual) Nucleated RBC % Seg Neutrophils # Seg Neutrophils # Man 19.9 H Lymphocytes # (Manual) 0.6 L Monocytes # (Manual) Eosinophils # (Manual) Basophils # (Manual) PT INR POC ABG pH ABG pH POC ABG pCO2 POC ABG pO2 ABG pO2 ABG O2 Saturation ABG Base Excess ABG Hemoglobin Oxyhemoglobin Sodium Potassium Chloride Carbon Dioxide BUN Creatinine Glucose POC Glucose 213 H 181 H Calcium Phosphorus Magnesium Iron TIBC Ferritin AST ALT Alkaline Phosphatase Troponin T C-Reactive Protein Total Protein Albumin Triglycerides HDL Cholesterol Miscellaneous Test Crossmatch 09/11/17 09/11/17 09/11/17 11:55 17:56 23:12 WBC RBC Hgb Hct MCV MCH RDW Plt Count Lymph % (Auto) [place] % (Auto) [place] # Seg Neutrophils % Seg Neuts % (Manual) Lymphocytes % (Manual) Monocytes % (Manual) Nucleated RBC % Seg Neutrophils # Seg Neutrophils # Man Lymphocytes # (Manual) Monocytes # (Manual) Eosinophils # (Manual) Basophils # (Manual) PT INR POC ABG pH ABG pH POC ABG pCO2 POC ABG pO2 ABG pO2 ABG O2 Saturation ABG Base Excess ABG Hemoglobin Oxyhemoglobin Sodium Potassium Chloride Carbon Dioxide 21 L BUN 80 H Creatinine 2.1 H Glucose 170 H POC Glucose 277 H 206 H Calcium 8.0 L Phosphorus Magnesium Iron TIBC Ferritin AST ALT Alkaline Phosphatase Troponin T C-Reactive Protein Total Protein Albumin Triglycerides HDL Cholesterol Miscellaneous Test Crossmatch 09/11/17 09/12/17 09/12/17 23:36 05:25 05:25 WBC 17.4 H RBC 2.29 L Hgb 6.7 L Hct 20.4 L MCV MCH RDW 21.2 H Plt Count Lymph % (Auto) [place] % (Auto) [place] # Seg Neutrophils % Seg Neuts % (Manual) 79.0 H Lymphocytes % (Manual) 5.0 L Monocytes % (Manual) Nucleated RBC % 1.0 H Seg Neutrophils # Seg Neutrophils # Man 13.7 H Lymphocytes # (Manual) 0.9 L Monocytes # (Manual) 1.2 H Eosinophils # (Manual) Basophils # (Manual) PT INR POC ABG pH ABG pH POC ABG pCO2 POC ABG pO2 ABG pO2 ABG O2 Saturation ABG Base Excess ABG Hemoglobin Oxyhemoglobin Sodium Potassium Chloride Carbon Dioxide BUN Creatinine Glucose POC Glucose 190 H Calcium Phosphorus Magnesium Iron 22 L TIBC 81 L Ferritin AST ALT Alkaline Phosphatase Troponin T C-Reactive Protein Total Protein Albumin Triglycerides HDL Cholesterol Miscellaneous Test Crossmatch 09/12/17 09/12/17 09/12/17 05:25 05:36 09:14 WBC RBC Hgb Hct MCV MCH RDW Plt Count Lymph % (Auto) [place] % (Auto) [place] # Seg Neutrophils % Seg Neuts % (Manual) Lymphocytes % (Manual) Monocytes % (Manual) Nucleated RBC % Seg Neutrophils # Seg Neutrophils # Man Lymphocytes # (Manual) Monocytes # (Manual) Eosinophils # (Manual) Basophils # (Manual) PT INR POC ABG pH ABG pH POC ABG pCO2 POC ABG pO2 ABG pO2 ABG O2 Saturation ABG Base Excess ABG Hemoglobin Oxyhemoglobin Sodium Potassium Chloride Carbon Dioxide BUN Creatinine Glucose POC Glucose 141 H Calcium Phosphorus Magnesium Iron TIBC Ferritin > 2000.0 H AST ALT Alkaline Phosphatase Troponin T C-Reactive Protein Total Protein Albumin Triglycerides HDL Cholesterol Miscellaneous Test Crossmatch See Detail 09/12/17 09/12/17 09/12/17 11:18 15:22 17:18 WBC RBC Hgb 8.5 L Hct 25.4 L MCV MCH RDW Plt Count Lymph % (Auto) [place] % (Auto) [place] # Seg Neutrophils % Seg Neuts % (Manual) Lymphocytes % (Manual) Monocytes % (Manual) Nucleated RBC % Seg Neutrophils # Seg Neutrophils # Man Lymphocytes # (Manual) Monocytes # (Manual) Eosinophils # (Manual) Basophils # (Manual) PT INR POC ABG pH ABG pH POC ABG pCO2 POC ABG pO2 ABG pO2 ABG O2 Saturation ABG Base Excess ABG Hemoglobin Oxyhemoglobin Sodium Potassium Chloride Carbon Dioxide BUN Creatinine Glucose POC Glucose 262 H 193 H Calcium Phosphorus Magnesium Iron TIBC Ferritin AST ALT Alkaline Phosphatase Troponin T C-Reactive Protein Total Protein Albumin Triglycerides HDL Cholesterol Miscellaneous Test Crossmatch 09/13/17 09/13/17 09/13/17 00:05 06:25 Unknown WBC 15.6 H RBC 2.72 L Hgb 8.1 L Hct 23.9 L MCV MCH RDW 19.5 H Plt Count 137 L Lymph % (Auto) [place] % (Auto) [place] # Seg Neutrophils % Seg Neuts % (Manual) 73.0 H Lymphocytes % (Manual) 3.0 L Monocytes % (Manual) 19.0 H Nucleated RBC % 2.0 H Seg Neutrophils # Seg Neutrophils # Man 11.4 H Lymphocytes # (Manual) 0.5 L Monocytes # (Manual) 3.0 H Eosinophils # (Manual) Basophils # (Manual) PT INR POC ABG pH ABG pH POC ABG pCO2 POC ABG pO2 ABG pO2 ABG O2 Saturation ABG Base Excess ABG Hemoglobin Oxyhemoglobin Sodium Potassium Chloride Carbon Dioxide BUN Creatinine Glucose POC Glucose 235 H 286 H Calcium Phosphorus Magnesium Iron TIBC Ferritin AST ALT Alkaline Phosphatase Troponin T C-Reactive Protein Total Protein Albumin Triglycerides HDL Cholesterol Miscellaneous Test Crossmatch 09/13/17 Unknown WBC RBC Hgb Hct MCV MCH RDW Plt Count Lymph % (Auto) [place] % (Auto) [place] # Seg Neutrophils % Seg Neuts % (Manual) Lymphocytes % (Manual) Monocytes % (Manual) Nucleated RBC % Seg Neutrophils # Seg Neutrophils # Man Lymphocytes # (Manual) Monocytes # (Manual) Eosinophils # (Manual) Basophils # (Manual) PT INR POC ABG pH ABG pH POC ABG pCO2 POC ABG pO2 ABG pO2 ABG O2 Saturation ABG Base Excess ABG Hemoglobin Oxyhemoglobin Sodium Potassium Chloride Carbon Dioxide 19 L BUN 103 H Creatinine 2.6 H Glucose 173 H POC Glucose Calcium Phosphorus Magnesium Iron TIBC Ferritin AST ALT Alkaline Phosphatase Troponin T C-Reactive Protein Total Protein Albumin Triglycerides HDL Cholesterol Miscellaneous Test Crossmatch
--- NOTE | 2017-09-13 10:18 | Progress Note ---
Assessment and Plan Assessment and plan: Acute hypoxic respiratory failure on Mechanical ventilation > 96 hours continue ventilator support s/p tracheostomy on 09/09/17, had failed extubation multiple times Sepsis secondary to peritonitis, Intra abdominal abscess and Bowel obstruction Patient had completed 14 days of meropenem and diflucan, was restarted again due to fever/septic shock continue abx per ID recommendation she has had the following procedures 08/31: Ex lap with abdominal wash out and closure 08/17: Ex lap with G tube placement, EGD, abdominal wash out and removal of PD Cath Acute GI bleeding with severe acute blood loss anemia EGD showed small gastric ulcer s/p multiple transfusions GI Physician following Patient had CTA of abdomen and pelvis no active bleeding, CT Abdomen repeated , no acute findings transfuse to keep Hg above 8 given septic shock continue Protonix iv Ulcerative esophagitis/small gastric ulcer on EGD Continue iv Protonix Anemia. Hgb 8.1 today after transfused 1 unit PRBC yesterday ESRD. Dialysis as per Nephrology. Septic shock. continue IV pressors,Vasopressin and Levophed. wean off as needed continue abx, ID input appreciated Arterial line Severe Protein calorie malnutrition Continue with TPN Sacral and lower extremity wound, POA continue wound care NSVT likely due to levophed, wean as tolerated cardiology input appreciated DVT prophylaxis; SCDs Not on anticoagualation because of GI bleed Disposition: continue ICU care Prognosis: guarded We had a lengthy family meeting today about 30-35 mins. Those present: myself, Dr. Mcmahan, Dr. Rasmussen, Surgeon, Dr. Carvajal ID Physician, Shyanne Fink, case coordinator, and patient's family including and daughter. It was decided to consult cardiology,trial of steroids. History Interval history: Patient with severe sepsis,septic shock, Patient still on pressors, Hospitalist Physical - Physical exam Narrative exam: Gen Appearance: Not in acute distress,morbidly obese HEENT: normocephalic, atraumatic Neck: supple, no JVD, Tracheostomy Lungs: Clear to auscultation, no rales, no wheezing, Heart: S1 and S2 regular, no murmurs,no rubs or gallop, Abdomen: Soft , non tender, non distended, Dressing over abdomen, G tube, bowel sounds present Extremity:Bilateral edema, no clubbing or cyanosis, Neuro : Sedated with Fentanyl - Constitutional Vitals: Temp Pulse Resp BP Pulse Ox 97.9 F 101 H 25 H 116/37 100 09/13/17 08:00 09/13/17 09:39 09/13/17 09:39 09/13/17 09:18 09/13/17 09:39 General appearance: Present: mild distress Results - Labs CBC & Chem 7: 09/13/17 Unknown 09/13/17 Unknown Labs: Laboratory Last Values WBC 15.6 K/mm3 (4.5-11.0) H 09/13/17 Unknown RBC 2.72 M/mm3 (3.65-5.03) L 09/13/17 Unknown Hgb 8.1 gm/dl (10.1-14.3) L 09/13/17 Unknown Hct 23.9 % (30.3-42.9) L 09/13/17 Unknown MCV 88 fl (79-97) 09/13/17 Unknown MCH 30 pg (28-32) 09/13/17 Unknown MCHC 34 % (30-34) 09/13/17 Unknown RDW 19.5 % (13.2-15.2) H 09/13/17 Unknown Plt Count 137 K/mm3 (140-440) L 09/13/17 Unknown Lymph % (Auto) Cupola Melting Supervisor 08/19/17 07:37 Becker % (Auto) Cupola Melting Supervisor 09/13/17 Unknown Eos % (Auto) Cupola Melting Supervisor 08/19/17 07:37 Baso % (Auto) Cupola Melting Supervisor 08/19/17 07:37 Lymph # Cupola Melting Supervisor 08/19/17 07:37 Becker # Cupola Melting Supervisor 08/19/17 07:37 Eos # Cupola Melting Supervisor 08/19/17 07:37 Baso # Cupola Melting Supervisor 08/19/17 07:37 Add Manual Diff Complete 09/13/17 Unknown Total Counted 100 09/13/17 Unknown Seg Neutrophils % Cupola Melting Supervisor 09/08/17 04:05 Seg Neuts % (Manual) 73.0 % (40.0-70.0) H 09/13/17 Unknown Band Neutrophils % 1.0 % 09/13/17 Unknown Lymphocytes % (Manual) 3.0 % (13.4-35.0) L 09/13/17 Unknown Reactive Lymphs % (Man) 0 % 09/13/17 Unknown Monocytes % (Manual) 19.0 % (0.0-7.3) H 09/13/17 Unknown Eosinophils % (Manual) 0 % (0.0-4.3) 09/13/17 Unknown Basophils % (Manual) 0 % (0.0-1.8) 09/13/17 Unknown Metamyelocytes % 3.0 % 09/13/17 Unknown Myelocytes % 1.0 % 09/13/17 Unknown Promyelocytes % 0 % 09/13/17 Unknown Blast Cells % 0 % 09/13/17 Unknown Nucleated RBC % 2.0 % (0.0-0.9) H 09/13/17 Unknown Seg Neutrophils # Cupola Melting Supervisor 08/19/17 07:37 Seg Neutrophils # Man 11.4 K/mm3 (1.8-7.7) H 09/13/17 Unknown Band Neutrophils # 0.2 K/mm3 09/13/17 Unknown Lymphocytes # (Manual) 0.5 K/mm3 (1.2-5.4) L 09/13/17 Unknown Abs React Lymphs (Man) 0.0 K/mm3 09/13/17 Unknown Monocytes # (Manual) 3.0 K/mm3 (0.0-0.8) H 09/13/17 Unknown Eosinophils # (Manual) 0.0 K/mm3 (0.0-0.4) 09/13/17 Unknown Basophils # (Manual) 0.0 K/mm3 (0.0-0.1) 09/13/17 Unknown Metamyelocytes # 0.5 K/mm3 09/13/17 Unknown Myelocytes # 0.2 K/mm3 09/13/17 Unknown Promyelocytes # 0.0 K/mm3 09/13/17 Unknown Blast Cells # 0.0 K/mm3 09/13/17 Unknown Pathologist Review Not Reportable 08/30/17 05:20 WBC Morphology Not Reportable 09/13/17 Unknown Hypersegmented Neuts Not Reportable 09/13/17 Unknown Hyposegmented Neuts Not Reportable 09/13/17 Unknown Hypogranular Neuts Not Reportable 09/13/17 Unknown Smudge Cells Not Reportable 09/13/17 Unknown Toxic Granulation Not Reportable 09/13/17 Unknown Toxic Vacuolation Not Reportable 09/13/17 Unknown Dohle Bodies Not Reportable 09/13/17 Unknown Pelger-Huet Anomaly Not Reportable 09/13/17 Unknown Ariel Rods Not Reportable 09/13/17 Unknown Platelet Estimate Appears decreased 09/13/17 Unknown Clumped Platelets Not Reportable 09/13/17 Unknown Plt Clumps, EDTA Not Reportable 09/13/17 Unknown Large Platelets Not Reportable 09/13/17 Unknown Giant Platelets Not Reportable 09/13/17 Unknown Platelet Satelliting Not Reportable 09/13/17 Unknown Plt Morphology Comment Not Reportable 09/13/17 Unknown RBC Morphology Not Reportable 09/13/17 Unknown Dimorphic RBCs Not Reportable 09/13/17 Unknown Polychromasia Few 09/13/17 Unknown Hypochromasia Not Reportable 09/13/17 Unknown Poikilocytosis Not Reportable 09/13/17 Unknown Anisocytosis 1+ 09/13/17 Unknown Microcytosis Not Reportable 09/13/17 Unknown Macrocytosis Few 09/13/17 Unknown Spherocytes Not Reportable 09/13/17 Unknown Pappenheimer Bodies Not Reportable 09/13/17 Unknown Sickle Cells Not Reportable 09/13/17 Unknown Target Cells Not Reportable 09/13/17 Unknown Tear Drop Cells Not Reportable 09/13/17 Unknown Ovalocytes Not Reportable 09/13/17 Unknown Stomatocytes Rare 09/12/17 05:25 Helmet Cells Not Reportable 09/13/17 Unknown Vera-[place] Bodies Not Reportable 09/13/17 Unknown Ferris Rings Not Reportable 09/13/17 Unknown Yusuf Cells Not Reportable 09/13/17 Unknown Bite Cells Not Reportable 09/13/17 Unknown Crenated Cell Not Reportable 09/13/17 Unknown Elliptocytes Not Reportable 09/13/17 Unknown Acanthocytes (Spur) Not Reportable 09/13/17 Unknown Rouleaux Not Reportable 09/13/17 Unknown Hemoglobin C Crystals Not Reportable 09/13/17 Unknown Schistocytes Not Reportable 09/13/17 Unknown Malaria parasites Not Reportable 09/13/17 Unknown Jovanni Bodies Not Reportable 09/13/17 Unknown Hem Pathologist Commnt No 09/13/17 Unknown PT 15.1 Sec. (12.2-14.9) H 08/31/17 18:15 INR 1.13 (0.87-1.13) 08/31/17 18:15 APTT 28.7 Sec. (24.2-36.6) 08/31/17 18:15 POC ABG pH 7.335 (7.35-7.45) L 08/30/17 03:31 ABG pH 7.323 pH Units (7.350-7.450) L 09/09/17 Unknown POC ABG pCO2 44.1 (35-45) 08/30/17 03:31 ABG pCO2 41.1 mm Hg 09/09/17 Unknown POC ABG pO2 117 (80-105) H 08/30/17 03:31 ABG pO2 94.1 mm Hg (80.0-90.0) H 09/09/17 Unknown POC ABG HCO3 23.5 08/30/17 03:31 ABG HCO3 20.9 mmol/L (20.0-26.0) 09/09/17 Unknown POC ABG Total CO2 25 08/30/17 03:31 POC ABG O2 Sat 98 08/30/17 03:31 ABG O2 Saturation 97.2 % (95.0-99.0) 09/09/17 Unknown ABG O2 Content 10.9 (0.0-44) 09/09/17 Unknown POC ABG Base Excess -2 08/30/17 03:31 ABG Base Excess -4.8 mmol/L (-2.0-3.0) L 09/09/17 Unknown ABG Hemoglobin 8.0 gm/dl (12.0-16.0) L 09/09/17 Unknown ABG Carboxyhemoglobin 2.0 % (0.0-5.0) 09/09/17 Unknown ABG Methemoglobin 0.3 % (0.0-1.5) 09/09/17 Unknown VBG pH 7.462 (7.320-7.420) H 08/08/17 14:52 Oxyhemoglobin 94.9 % (95.0-99.0) L 09/09/17 Unknown FiO2 30 % 09/09/17 Unknown Sodium 138 mmol/L (137-145) 09/13/17 Unknown Potassium 4.5 mmol/L (3.6-5.0) 09/13/17 Unknown Chloride 99.2 mmol/L (98-107) 09/13/17 Unknown Carbon Dioxide 19 mmol/L (22-30) L 09/13/17 Unknown Anion Gap 24 mmol/L 09/13/17 Unknown BUN 103 mg/dL (7-17) H 09/13/17 Unknown Creatinine 2.6 mg/dL (0.7-1.2) H 09/13/17 Unknown Estimated GFR 23 ml/min 09/13/17 Unknown BUN/Creatinine Ratio 40 % 09/13/17 Unknown Glucose 173 mg/dL (65-100) H 09/13/17 Unknown POC Glucose 286 (70-105) H 09/13/17 06:25 Lactic Acid 1.60 mmol/L (0.7-2.0) 08/17/17 11:20 Calcium 8.8 mg/dL (8.4-10.2) 09/13/17 Unknown Phosphorus 3.00 mg/dL (2.5-4.5) 09/13/17 Unknown Magnesium 1.80 mg/dL (1.7-2.3) 09/13/17 Unknown Iron 22 ug/dL (37-170) L 09/12/17 05:25 TIBC 81 mcg/dL (250-450) L 09/12/17 05:25 Ferritin > 2000.0 ng/mL (13.0-400.0) H 09/12/17 05:25 Total Bilirubin 1.00 mg/dL (0.1-1.2) 09/08/17 04:05 Direct Bilirubin 0.2 mg/dL (0-0.2) 08/08/17 14:11 Indirect Bilirubin 0.3 mg/dL 08/08/17 14:11 AST 14 units/L (5-40) 09/08/17 04:05 ALT 16 units/L (7-56) 09/08/17 04:05 Alkaline Phosphatase 199 units/L (35-129) H 09/08/17 04:05 Ammonia 25.0 umol/L (25-60) 08/08/17 14:52 Troponin T 0.132 ng/mL (0.00-0.029) H* 08/09/17 13:25 C-Reactive Protein 2.80 mg/dL (0.00-1.30) H 09/06/17 05:30 NT-Pro-B Natriuret Pep 6156 pg/mL (0-900) H 08/08/17 14:11 Total Protein 4.5 g/dL (6.3-8.2) L 09/08/17 04:05 Albumin 1.7 g/dL (3.9-5) L 09/08/17 04:05 Albumin/Globulin Ratio 0.6 % 09/08/17 04:05 Triglycerides 180 mg/dL (2-149) H 09/03/17 04:00 Cholesterol 91 mg/dL (50-199) 08/08/17 21:23 LDL Cholesterol Direct 53 mg/dL (50-130) 08/08/17 21:23 HDL Cholesterol 26 mg/dL (40-59) L 08/08/17 21:23 Cholesterol/HDL Ratio 3.50 % 08/08/17 21:23 Amylase 45 units/L (27-131) 08/16/17 09:50 Lipase 34 units/L (13-60) 08/16/17 09:50 TSH 6.580 mlU/mL (0.270-4.200) H 08/08/17 14:22 Free T4 1.46 ng/dL (0.76-1.46) 08/08/17 14:22 Total Cortisol 30.1 mcg/dL () 08/13/17 06:14 Urine Color Yellow (Yellow) 08/08/17 20:15 Urine Turbidity Turbid (Clear) 08/08/17 20:15 Urine pH 8.0 (5.0-7.0) H 08/08/17 20:15 Ur Specific Maud 1.015 (1.003-1.030) 08/08/17 20:15 Urine Protein 100 mg/dl mg/dL (Negative) 08/08/17 20:15 Urine Glucose (UA) Neg mg/dL (Negative) 08/08/17 20:15 Urine Ketones Neg mg/dL (Negative) 08/08/17 20:15 Urine Blood Mod (Negative) 08/08/17 20:15 Urine Nitrite Neg (Negative) 08/08/17 20:15 Urine Bilirubin Neg (Negative) 08/08/17 20:15 Urine Urobilinogen < 2.0 mg/dL (<2.0) 08/08/17 20:15 Ur Leukocyte Esterase Lg (Negative) 08/08/17 20:15 Urine WBC (Auto) 24.0 /HPF (0.0-6.0) H 08/08/17 20:15 Urine RBC (Auto) 3.0 /HPF (0.0-6.0) 08/08/17 20:15 U Epithel Cells (Auto) 3.0 /HPF (0-13.0) 08/08/17 20:15 Urine Bacteria (Auto) 4+ /HPF (Negative) 08/08/17 20:15 Urine Mucus 3+ /HPF 08/08/17 20:15 Fluid Type Peritoneal 08/08/17 18:18 Fluid Color Straw 08/08/17 18:18 Fluid Appearance Clear 08/08/17 18:18 Fluid pH 7.74 08/08/17 18:18 Fluid WBC 4 /mm3 08/08/17 18:18 Fluid RBC 1 /mm3 08/08/17 18:18 Fluid Seg Neutrophils 12 % 08/08/17 18:18 Fluid Lymphocytes 0 % 08/08/17 18:18 Fluid Reactive Lymphs 0 % 08/08/17 18:18 Fluid Monocytes 1 % 08/08/17 18:18 Fluid Eosinophils 0 % 08/08/17 18:18 Fluid Basophils 0 % 08/08/17 18:18 Fluid Glucose 315 mg/dL (40-70) H 08/08/17 18:18 Random Vancomycin 19.5 ug/mL (0-40.0) 08/22/17 03:40 Hep Bs Antigen Non-reactive (Negative) 08/22/17 03:40 Hepatitis C Antibody Non-reactive (NonReactive) 08/22/17 03:40 Miscellaneous Test Flexitest 1 H 09/06/17 09:57 Blood Type O POSITIVE 09/12/17 09:14 Antibody Screen Negative 09/12/17 09:14 VAN Antibody Screen Negative 09/07/17 17:07 Crossmatch See Detail 09/12/17 09:14
[2017-09-13] MEDS ORDERED: LEVOPHED DRIP 4 MG/NS 250 ML 0 MG/0 ML BAG IV ONE (10:56)
[2017-09-13] MEDS ORDERED: LEVOPHED DRIP 4 MG/NS 250 ML 4 MG/250 ML BAG IV ONE (11:14)
--- NOTE | 2017-09-13 11:34 | Progress Note ---
Assessment and Plan Assessment: 1) Sepsis with septic shock: with persistent hypotension, worsening on 2 pressors however leukocytosis improving; new source ? unclear ? BP cuff error ? GI bleed. Repeat CT no abscess no collection. CXR pulmonary edema. Ivan removed. -CRP= 34 -->30 -->19-->0.1 ->2.8 -procalcitonin=1.3 -->7.6 -->3.9 -->3.2 2) Bowel obstruction / suspect ?gastric perforation ? peritonitis -S/P Exlap, G-tube placement, EGD, abdominal washout and removal of PD -OR findings - bowel obstruction due to entanglement of PD cath, abscess cavity in LUQ and ? suspect perforation of unclear location 3) CA-UTI: chronic ivan exchanged every 4 weeks and ureteral stents in place which are exchanged every 6 months ? urine cultures still pending should r/o MDR bacteria 4) Paraplegia 5) ESRD on PD - no evidence of peritonitis, wbc count 2. THINNER SPRAYER and Diphteroids on peritoneal fluid likely contaminants. 6) Recent pancreatitis 7) Penicillin allergy-has taken keflex w/o problems 8) Presumed Surgical wound infection / dehiscence ? 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 11) Sacral stage II 12) Anemia- severe- Hg 6.7 today Plan: -extensive discussion with family and medical team done today -hypotension likely non infectious related, consider eval for adrenal insuficiency -agree with cards eval and hem eval -f/u repeat blood cx -continue dapto IV day 5 of 7 -continue micafungin day 3 of 7 -continue meropenem 6 of 10 -monitor leukocytosis which is better -wound care poor prognosis discussed with family again today, will reassess in 48h. I am rounding tomorrow. Thank you Dr Cantu for your consultation, will follow up with you. Ramya Lang MD Infectious Diseases Specialist [facility] ([facility] M [phone] O [phone] Subjective Date of service: 09/13/17 Principal diagnosis: respiratory failure, sepsis, shock rectal bleeding Interval history: Pt remains intubated on the vent now on levophed at 21 mcg and vasopressin 0.03 , on TPN, fentanyl, no fever. Microbiology: Blood cultures: 08/08 neg 08/12 neg 08/16 neg 08/20 neg 08/29 neg 09/06 neg 09/12 ngtd Urine cultures: 08/08 10-100K skin grace Respiratory cultures: 08/30 tracheal asp MRSA Wound cultures: 08/26 Staph aureus and Kristine 08/28 MRSA, E faecalis, Kristine albicans Stool cultures: Other: 08/08 peritoneal fluid + THINNER SPRAYER/Diphteroids Current Antimicrobials: dapto 09/10 meropenem 09/09 micafungin 09/11 Previous Antimicrobials: 08/10 levaquin 08/16 vancomycin 08/13 meropenem 08/16 fluconazole Micafungin 08/29 meropenem 08/29 zyvox 09/03 fluconazole 09/03 Objective - Exam Narrative Exam: General appearance: sedated on vent via trach Eyes: anicteric sclerae, moist conjunctivae; no lid-lag; PERRLA HENT: Atraumatic; NGT Neck: Trach in place Lungs: coarse BS moreno CV: RRR, no murmurs Abdomen: soft, midline surgical wound with sutures no drainage. Gtube. drain Extremities: + peripheral edema + leg ulcer no drainage Skin: right groin old fem line wound no erythema, no drainage Psych: sedated. Neuro: sedated Lines: right IJ vas cath / Right IJ Nair 08/16 - Constitutional Vitals: Vital Signs Temp Pulse Resp BP Pulse Ox 97.9 F 101 H 25 H 116/37 100 09/13/17 08:00 09/13/17 09:39 09/13/17 09:39 09/13/17 09:18 09/13/17 09:39 Temperature -Last 24 Hours Temperature 97.9 F Temperature 99.5 F Temperature 98.9 F Temperature 99.4 F Temperature 98.3 F Temperature 97.1 F Temperature 97.4 F Temperature 97.4 F Temperature 98.1 F Temperature 98.3 F - Labs CBC & Chem 7: 09/13/17 Unknown 09/13/17 Unknown Labs: Abnormal lab results 09/07/17 09/12/17 09/12/17 Range/Units 17:07 09:14 11:18 WBC (4.5-11.0) K/mm3 RBC (3.65-5.03) M/mm3 Hgb (10.1-14.3) gm/dl Hct (30.3-42.9) % RDW (13.2-15.2) % Plt Count (140-440) K/mm3 Seg Neuts % (Manual) (40.0-70.0) % Lymphocytes % (Manual) (13.4-35.0) % Monocytes % (Manual) (0.0-7.3) % Nucleated RBC % (0.0-0.9) % Seg Neutrophils # Man (1.8-7.7) K/mm3 Lymphocytes # (Manual) (1.2-5.4) K/mm3 Monocytes # (Manual) (0.0-0.8) K/mm3 Carbon Dioxide (22-30) mmol/L BUN (7-17) mg/dL Creatinine (0.7-1.2) mg/dL Glucose (65-100) mg/dL POC Glucose 262 H (70-105) Crossmatch See Detail See Detail 09/12/17 09/12/17 09/13/17 Range/Units 15:22 17:18 00:05 WBC (4.5-11.0) K/mm3 RBC (3.65-5.03) M/mm3 Hgb 8.5 L (10.1-14.3) gm/dl Hct 25.4 L (30.3-42.9) % RDW (13.2-15.2) % Plt Count (140-440) K/mm3 Seg Neuts % (Manual) (40.0-70.0) % Lymphocytes % (Manual) (13.4-35.0) % Monocytes % (Manual) (0.0-7.3) % Nucleated RBC % (0.0-0.9) % Seg Neutrophils # Man (1.8-7.7) K/mm3 Lymphocytes # (Manual) (1.2-5.4) K/mm3 Monocytes # (Manual) (0.0-0.8) K/mm3 Carbon Dioxide (22-30) mmol/L BUN (7-17) mg/dL Creatinine (0.7-1.2) mg/dL Glucose (65-100) mg/dL POC Glucose 193 H 235 H (70-105) Crossmatch 09/13/17 09/13/17 09/13/17 Range/Units 06:25 Unknown Unknown WBC 15.6 H (4.5-11.0) K/mm3 RBC 2.72 L (3.65-5.03) M/mm3 Hgb 8.1 L (10.1-14.3) gm/dl Hct 23.9 L (30.3-42.9) % RDW 19.5 H (13.2-15.2) % Plt Count 137 L (140-440) K/mm3 Seg Neuts % (Manual) 73.0 H (40.0-70.0) % Lymphocytes % (Manual) 3.0 L (13.4-35.0) % Monocytes % (Manual) 19.0 H (0.0-7.3) % Nucleated RBC % 2.0 H (0.0-0.9) % Seg Neutrophils # Man 11.4 H (1.8-7.7) K/mm3 Lymphocytes # (Manual) 0.5 L (1.2-5.4) K/mm3 Monocytes # (Manual) 3.0 H (0.0-0.8) K/mm3 Carbon Dioxide 19 L (22-30) mmol/L BUN 103 H (7-17) mg/dL Creatinine 2.6 H (0.7-1.2) mg/dL Glucose 173 H (65-100) mg/dL POC Glucose 286 H (70-105) Crossmatch
[2017-09-13] MEDS: PROTONIX IV SCH (11:42)
[2017-09-13] MEDS: MYCAMINE 100 MG in NACL 0.9% 100 ML IV SCH (11:42)
[2017-09-13] MEDS: LEVEMIR SUB-Q SCH (11:43)
--- NOTE | 2017-09-13 11:43 | Procedure Note ---
Date of procedure: 09/13/17 Pre-op diagnosis: Hypotension requiring vasopressors Post-op diagnosis: same Procedure: LEFT BRACHIAL ARTERIAL LINE Anesthesia: local Surgeon: JANINE CARNEY Estimated blood loss: minimal Pathology: none Condition: critical Disposition: ICU (Left brachial arterial line placed in ICU under ultrasound guidance. Sterile technique used. 20 gauge arrow kit used. Catheter threaded over wire easily. Initial attempts x 2 on left radial artery unsuccessful. Unable to get any flashback. Time spent 30 minutes. Performing physician: Janine Carney MD. Requesting Physican: Dr. Francisco Javier Rose. Location: ICU A2)
[2017-09-13 11:44] LABS: ISTAT Base Excess -7; ISTAT HCO3 18.8; ISTAT PCO2 34.3 (35-45); ISTAT PH 7.347 (7.35-7.45); ISTAT PO2 134 (80-105); ISTAT SO2 99; ISTAT TCO2 20
[2017-09-13] MEDS: MERREM 1,000 MG in NACL 0.9% 100 ML IV SCH (12:48)
--- NOTE | 2017-09-13 14:17 | Event Note ---
Date: 09/13/17 Cardiology called to re-evaluate pt for persistent hypotension (via BP cuff) and pressor dependent state. Pt seen s/p arterial line placement this AM. Large discrepancy noted in BP cuff measurements and arterial line BP measurements. BP currently 125/55 per arterial line and primary RN has been able to significantly wean levophed per weaning parameters using arterial line BPs. Nothing further to add at this time from cardiac perspective. D/w hospitalist, Dr. Cantu. Anderson MELARA, PLASTER CASTER / DR. RAJPUT
[2017-09-13] MEDS ORDERED: WATER FOR INJ (PF) 10 ML ONE (14:31)
--- NOTE | 2017-09-13 15:20 | Progress Note ---
Assessment and Plan 62 y.o. F s/p ex lap, abdominal wash out and abdominal wall closure after wound dehiscence 2 weeks s/p ex lap for gastric perforation and sbo. Sepsis: Pt requiring levo, vaso. Requirements increasing. Leukocytosis improving. possible restart of steroids per pulm. -[place] placed- following anna does not match bp cuff pressors. following anna. -Wound care following wounds on legs/sacrum -leukocytosis improving - ID following VDRF: s/p trach. GI bleed-resolved: Prev Gastric perf: Leak test today via NG tube and methylene blue. No blue noted in NIKITA. Minimal NG and G tube output after clamping. Can start trickle feeds with checking of residuals. Rec. start 10cc/hr without titration for 24hrs. Nutrition: TPN at 77- replace G tube losses though she is renal? Renal to manage fluids. DVT proph: scds hold hep with GI bleed. GI: PPI. - Patient Problems (1) Peritonitis (acute) generalized Current Visit: Yes Status: Acute Subjective Narrative: Pt had HD yesterday. No acute events overnight. Pt grimaces with pain. Pt continues to require vaso and levo. Attended family meeting this am. NG clamped Nikita: 105 serosang, drk red. mixed. G tube 190bilious Objective Vital Signs - 12hr 09/13/17 09/13/17 09/13/17 03:16 03:30 03:42 Temperature 99.5 F Pulse Rate 102 H 106 H Pulse Rate [ Anterior Bilateral Throughout] Respiratory 22 22 Rate Respiratory Rate [Anterior Bilateral Throughout] Blood Pressure 125/47 125/47 O2 Sat by Pulse 100 100 Oximetry O2 Sat by Pulse Oximetry [ Anterior Bilateral Throughout] O2 Sat by Pulse Oximetry [ Assessment] 09/13/17 09/13/17 09/13/17 03:46 04:00 04:16 Temperature Pulse Rate 104 H 105 H 110 H Pulse Rate [ Anterior Bilateral Throughout] Respiratory 22 19 26 H Rate Respiratory Rate [Anterior Bilateral Throughout] Blood Pressure 105/54 143/53 115/58 O2 Sat by Pulse 100 100 100 Oximetry O2 Sat by Pulse Oximetry [ Anterior Bilateral Throughout] O2 Sat by Pulse Oximetry [ Assessment] 09/13/17 09/13/17 09/13/17 04:30 04:46 05:00 Temperature Pulse Rate 104 H 107 H 107 H Pulse Rate [ Anterior Bilateral Throughout] Respiratory 22 23 17 Rate Respiratory Rate [Anterior Bilateral Throughout] Blood Pressure 115/58 90/42 137/49 O2 Sat by Pulse 100 100 100 Oximetry O2 Sat by Pulse Oximetry [ Anterior Bilateral Throughout] O2 Sat by Pulse Oximetry [ Assessment] 09/13/17 09/13/17 09/13/17 05:16 05:30 05:46 Temperature Pulse Rate 107 H 107 H 103 H Pulse Rate [ Anterior Bilateral Throughout] Respiratory 19 21 20 Rate Respiratory Rate [Anterior Bilateral Throughout] Blood Pressure 108/57 108/57 143/54 O2 Sat by Pulse 100 100 100 Oximetry O2 Sat by Pulse Oximetry [ Anterior Bilateral Throughout] O2 Sat by Pulse Oximetry [ Assessment] 09/13/17 09/13/17 09/13/17 06:00 07:00 07:16 Temperature Pulse Rate 115 H 109 H 95 H Pulse Rate [ Anterior Bilateral Throughout] Respiratory 17 25 H 21 Rate Respiratory Rate [Anterior Bilateral Throughout] Blood Pressure 128/93 135/61 99/75 O2 Sat by Pulse 100 100 100 Oximetry O2 Sat by Pulse Oximetry [ Anterior Bilateral Throughout] O2 Sat by Pulse Oximetry [ Assessment] 09/13/17 09/13/17 09/13/17 07:30 07:46 08:00 Temperature 97.9 F Pulse Rate 96 H 95 H 105 H Pulse Rate [ Anterior Bilateral Throughout] Respiratory 22 22 17 Rate Respiratory Rate [Anterior Bilateral Throughout] Blood Pressure 148/56 119/48 119/48 O2 Sat by Pulse 100 100 100 Oximetry O2 Sat by Pulse Oximetry [ Anterior Bilateral Throughout] O2 Sat by Pulse Oximetry [ Assessment] 09/13/17 09/13/17 09/13/17 08:16 08:30 08:45 Temperature Pulse Rate 96 H 108 H 100 H Pulse Rate [ Anterior Bilateral Throughout] Respiratory 20 25 H 24 Rate Respiratory Rate [Anterior Bilateral Throughout] Blood Pressure 121/39 117/45 106/40 O2 Sat by Pulse 100 100 100 Oximetry O2 Sat by Pulse Oximetry [ Anterior Bilateral Throughout] O2 Sat by Pulse Oximetry [ Assessment] 09/13/17 09/13/17 09/13/17 09:00 09:16 09:18 Temperature Pulse Rate 98 H 89 98 H Pulse Rate [ 101 H Anterior Bilateral Throughout] Respiratory 21 20 Rate Respiratory 24 Rate [Anterior Bilateral Throughout] Blood Pressure 113/43 116/37 116/37 O2 Sat by Pulse 100 100 100 Oximetry O2 Sat by Pulse Oximetry [ Anterior Bilateral Throughout] O2 Sat by Pulse Oximetry [ Assessment] 09/13/17 09/13/17 09/13/17 09:30 09:39 09:46 Temperature Pulse Rate 94 H 101 H Pulse Rate [ 101 H Anterior Bilateral Throughout] Respiratory 20 25 H Rate Respiratory 25 H Rate [Anterior Bilateral Throughout] Blood Pressure 116/37 97/53 O2 Sat by Pulse 100 100 Oximetry O2 Sat by Pulse Oximetry [ Anterior Bilateral Throughout] O2 Sat by Pulse 100 Oximetry [ Assessment] 09/13/17 09/13/17 09/13/17 10:00 10:15 10:30 Temperature Pulse Rate 108 H 109 H 95 H Pulse Rate [ Anterior Bilateral Throughout] Respiratory 25 H 19 18 Rate Respiratory Rate [Anterior Bilateral Throughout] Blood Pressure 97/53 120/91 123/24 O2 Sat by Pulse 100 100 100 Oximetry O2 Sat by Pulse Oximetry [ Anterior Bilateral Throughout] O2 Sat by Pulse Oximetry [ Assessment] 09/13/17 09/13/17 09/13/17 10:46 11:00 11:16 Temperature Pulse Rate 97 H 98 H 94 H Pulse Rate [ Anterior Bilateral Throughout] Respiratory 21 20 21 Rate Respiratory Rate [Anterior Bilateral Throughout] Blood Pressure 120/91 120/91 123/24 O2 Sat by Pulse 100 100 100 Oximetry O2 Sat by Pulse Oximetry [ Anterior Bilateral Throughout] O2 Sat by Pulse Oximetry [ Assessment] 09/13/17 09/13/17 09/13/17 11:20 11:30 11:34 Temperature Pulse Rate 93 H 95 H 92 H Pulse Rate [ Anterior Bilateral Throughout] Respiratory 22 Rate Respiratory Rate [Anterior Bilateral Throughout] Blood Pressure 150/60 119/53 O2 Sat by Pulse 100 100 100 Oximetry O2 Sat by Pulse Oximetry [ Anterior Bilateral Throughout] O2 Sat by Pulse Oximetry [ Assessment] 09/13/17 09/13/17 09/13/17 11:46 12:00 12:16 Temperature 97.8 F Pulse Rate 97 H 91 H 90 Pulse Rate [ Anterior Bilateral Throughout] Respiratory 20 21 20 Rate Respiratory Rate [Anterior Bilateral Throughout] Blood Pressure O2 Sat by Pulse 100 100 100 Oximetry O2 Sat by Pulse Oximetry [ Anterior Bilateral Throughout] O2 Sat by Pulse Oximetry [ Assessment] 09/13/17 09/13/17 09/13/17 12:30 12:46 13:00 Temperature 97.8 F Pulse Rate 89 88 96 H Pulse Rate [ Anterior Bilateral Throughout] Respiratory 19 20 23 Rate Respiratory Rate [Anterior Bilateral Throughout] Blood Pressure 125/59 O2 Sat by Pulse 100 100 100 Oximetry O2 Sat by Pulse 100 Oximetry [ Anterior Bilateral Throughout] O2 Sat by Pulse Oximetry [ Assessment] 09/13/17 09/13/17 09/13/17 13:05 13:15 13:16 Temperature Pulse Rate 96 H 98 H 88 Pulse Rate [ Anterior Bilateral Throughout] Respiratory 20 Rate Respiratory Rate [Anterior Bilateral Throughout] Blood Pressure 125/59 126/60 O2 Sat by Pulse 100 Oximetry O2 Sat by Pulse Oximetry [ Anterior Bilateral Throughout] O2 Sat by Pulse Oximetry [ Assessment] 09/13/17 09/13/17 09/13/17 13:30 13:45 13:46 Temperature Pulse Rate 98 H 99 H 90 Pulse Rate [ Anterior Bilateral Throughout] Respiratory 24 19 Rate Respiratory Rate [Anterior Bilateral Throughout] Blood Pressure 118/55 98/50 O2 Sat by Pulse 100 100 Oximetry O2 Sat by Pulse Oximetry [ Anterior Bilateral Throughout] O2 Sat by Pulse Oximetry [ Assessment] 09/13/17 09/13/17 09/13/17 14:00 14:15 14:16 Temperature Pulse Rate 97 H 95 H 89 Pulse Rate [ Anterior Bilateral Throughout] Respiratory 15 18 Rate Respiratory Rate [Anterior Bilateral Throughout] Blood Pressure 88/52 88/51 O2 Sat by Pulse 100 100 Oximetry O2 Sat by Pulse Oximetry [ Anterior Bilateral Throughout] O2 Sat by Pulse Oximetry [ Assessment] 09/13/17 09/13/17 09/13/17 14:30 14:31 14:45 Temperature Pulse Rate 92 H 92 H 95 H Pulse Rate [ Anterior Bilateral Throughout] Respiratory 17 Rate Respiratory Rate [Anterior Bilateral Throughout] Blood Pressure 96/53 97/55 O2 Sat by Pulse 100 Oximetry O2 Sat by Pulse Oximetry [ Anterior Bilateral Throughout] O2 Sat by Pulse Oximetry [ Assessment] 09/13/17 09/13/17 14:46 15:00 Temperature Pulse Rate 92 H 95 H Pulse Rate [ Anterior Bilateral Throughout] Respiratory 16 19 Rate Respiratory Rate [Anterior Bilateral Throughout] Blood Pressure 96/54 O2 Sat by Pulse 100 100 Oximetry O2 Sat by Pulse Oximetry [ Anterior Bilateral Throughout] O2 Sat by Pulse Oximetry [ Assessment] - General physical appearance well developed, obese - Neck other (trach. no bleeding) - Respiratory normal expansion rales: right - Abdomen soft, other (midline dressing removed. upper portion of incision at base friable. +serosang drainage. repacked with gauze and kerlex. pd cath site- clean re-wicked with 4x4. Nikita and G tube in place. soft, tender at midline. ) - Integumentary no rash, other (weeping at skin sites. ) - Musculoskeletal other (+3 edema upper and lower extremities. ) - Labs 09/13/17 Unknown 09/13/17 Unknown Diabetes panel 09/13/17 09/13/17 Range/Units Unknown Unknown Sodium 138 (137-145) mmol/L Potassium 4.5 (3.6-5.0) mmol/L Chloride 99.2 (98-107) mmol/L Carbon Dioxide 19 L (22-30) mmol/L BUN 103 H (7-17) mg/dL Creatinine 2.6 H (0.7-1.2) mg/dL Glucose 173 H (65-100) mg/dL Calcium 8.8 (8.4-10.2) mg/dL Albumin < 0.2 L (3.9-5) g/dL Calcium panel 09/13/17 09/13/17 Range/Units Unknown Unknown Calcium 8.8 (8.4-10.2) mg/dL Phosphorus 3.00 (2.5-4.5) mg/dL Albumin < 0.2 L (3.9-5) g/dL Pituitary panel 09/13/17 Range/Units Unknown Sodium 138 (137-145) mmol/L Potassium 4.5 (3.6-5.0) mmol/L Chloride 99.2 (98-107) mmol/L Carbon Dioxide 19 L (22-30) mmol/L BUN 103 H (7-17) mg/dL Creatinine 2.6 H (0.7-1.2) mg/dL Glucose 173 H (65-100) mg/dL Calcium 8.8 (8.4-10.2) mg/dL Adrenal panel 09/13/17 09/13/17 Range/Units Unknown Unknown Sodium 138 (137-145) mmol/L Potassium 4.5 (3.6-5.0) mmol/L Chloride 99.2 (98-107) mmol/L Carbon Dioxide 19 L (22-30) mmol/L BUN 103 H (7-17) mg/dL Creatinine 2.6 H (0.7-1.2) mg/dL Glucose 173 H (65-100) mg/dL Calcium 8.8 (8.4-10.2) mg/dL Albumin < 0.2 L (3.9-5) g/dL
[2017-09-13] MEDS: CATHFLO IV PRN (16:42)
[2017-09-13] MEDS ORDERED: TPN ADULT 1,800 ML IV SCH (20:00)
[2017-09-13] MEDS ORDERED: INTRALIPID 20% 250 ML IV SCH (20:00)
[2017-09-13] MEDS: ALBURX 25% (ALBUMIN) IV SCH (22:25)
[2017-09-14] MEDS: Vasostrict 20 UNIT in NACL 0.9% 100 ML IV SCH ×3 (00:49→23:52)
[2017-09-14] MEDS: DUONEB *Not for PRN Use IH SCH ×4 (02:10→20:04)
[2017-09-14 03:54] LABS: Hematocrit 22.5 % (30.3-42.9); Hemoglobin 7.6 gm/dl (10.1-14.3); Mean Corpuscular HGB Conc 34 % (30-34); Mean Corpuscular Hemoglobin 30 pg (28-32); Mean Corpuscular Volume 88 fl (79-97); Platelet Count 139 K/mm3 (140-440); Red Blood Count 2.55 M/mm3 (3.65-5.03); Red Cell Distribution Width 19.8 % (13.2-15.2); White Blood Count 12.5 K/mm3 (4.5-11.0)
[2017-09-14 03:58] LABS: Calcium 8.5 mg/dL (8.4-10.2); Chloride 99.6 mmol/L (98-107); Phosphorous 2.2 mg/dL (2.5-4.5); Potassium 4.3 mmol/L (3.6-5.0)
[2017-09-14] MEDS: fentaNYL DRIP Premix 2,000 MCG/100 ML BAG IV SCH ×2 (04:22→17:56)
[2017-09-14] MEDS: NOVOLOG SUB-Q SCH ×3 (05:23→17:58)
[2017-09-14] MEDS ORDERED: SODIUM BICARBONATE FEEDTUBE PRN (07:43)
[2017-09-14] MEDS ORDERED: PANCREAZE DR 10,500 UNIT FEEDTUBE PRN (07:43)
[2017-09-14] MEDS ORDERED: SIMPLE SYRUP FEEDTUBE PRN ×2 (07:43)
--- NOTE | 2017-09-14 09:20 | Progress Note ---
Assessment and Plan Assessment and plan: Acute hypoxic respiratory failure on Mechanical ventilation > 96 hours continue ventilator support s/p tracheostomy on 09/09/17, had failed extubation multiple times Sepsis secondary to peritonitis, Intra abdominal abscess and Bowel obstruction Patient had completed 14 days of meropenem and diflucan, was restarted again due to fever/septic shock continue abx per ID recommendation she has had the following procedures 08/31: Ex lap with abdominal wash out and closure 08/17: Ex lap with G tube placement, EGD, abdominal wash out and removal of PD Cath Acute GI bleeding with severe acute blood loss anemia EGD showed small gastric ulcer s/p multiple transfusions GI Physician following Patient had CTA of abdomen and pelvis no active bleeding, CT Abdomen repeated , no acute findings transfuse to keep Hg above 8 given septic shock continue Protonix iv Ulcerative esophagitis/small gastric ulcer on EGD Continue iv Protonix Anemia due to acute blood loss. Hgb 7.6 today ESRD. Dialysis as per Nephrology. Septic shock. Still on IV pressors,Vasopressin and Levophed but is being weaned down continue abx, ID input appreciated Arterial line placed yesterday Severe Protein calorie malnutrition Continue with TPN Sacral and lower extremity wound, POA continue wound care NSVT likely due to levophed, wean as tolerated cardiology input appreciated DVT prophylaxis; SCDs Not on anticoagualation because of GI bleed Disposition: continue ICU care Prognosis: guarded Yesterday at 9am, we had a lengthy family meeting about 30-35 mins. Those present: myself, Dr. Mcmahan, Dr. Rasmussen, Surgeon, Dr. Carvajal ID Physician, Shyanne Fink, showcase trimmer, and patient's family including and daughter. History Interval history: Patient with severe sepsis,septic shock, Patient still on pressors, Hospitalist Physical - Physical exam Narrative exam: Gen Appearance: Not in acute distress,morbidly obese HEENT: normocephalic, atraumatic Neck: supple, no JVD, Tracheostomy Lungs: Clear to auscultation, no rales, no wheezing, Heart: S1 and S2 regular, no murmurs,no rubs or gallop, Abdomen: Soft , non tender, non distended, Dressing over abdomen, G tube, bowel sounds present Extremity:Bilateral edema, no clubbing or cyanosis, Neuro : Sedated with Fentanyl - Constitutional Vitals: Temp Pulse Resp BP Pulse Ox 98.0 F 88 20 118/51 100 09/14/17 08:00 09/14/17 08:15 09/14/17 08:15 09/14/17 08:04 09/14/17 08:04 General appearance: Present: mild distress Results - Labs CBC & Chem 7: 09/14/17 03:15 09/14/17 03:15 Labs: Laboratory Last Values WBC 12.5 K/mm3 (4.5-11.0) H 09/14/17 03:15 RBC 2.55 M/mm3 (3.65-5.03) L 09/14/17 03:15 Hgb 7.6 gm/dl (10.1-14.3) L 09/14/17 03:15 Hct 22.5 % (30.3-42.9) L 09/14/17 03:15 MCV 88 fl (79-97) 09/14/17 03:15 MCH 30 pg (28-32) 09/14/17 03:15 MCHC 34 % (30-34) 09/14/17 03:15 RDW 19.8 % (13.2-15.2) H 09/14/17 03:15 Plt Count 139 K/mm3 (140-440) L 09/14/17 03:15 Lymph % (Auto) Healthcare Science Specialist 08/19/17 07:37 [place] % (Auto) Healthcare Science Specialist 09/13/17 Unknown Eos % (Auto) Healthcare Science Specialist 08/19/17 07:37 Baso % (Auto) Healthcare Science Specialist 08/19/17 07:37 Lymph # Healthcare Science Specialist 08/19/17 07:37 [place] # Healthcare Science Specialist 08/19/17 07:37 Eos # Healthcare Science Specialist 08/19/17 07:37 Baso # Healthcare Science Specialist 08/19/17 07:37 Add Manual Diff Complete 09/13/17 Unknown Total Counted 100 09/13/17 Unknown Seg Neutrophils % Healthcare Science Specialist 09/08/17 04:05 Seg Neuts % (Manual) 73.0 % (40.0-70.0) H 09/13/17 Unknown Band Neutrophils % 1.0 % 09/13/17 Unknown Lymphocytes % (Manual) 3.0 % (13.4-35.0) L 09/13/17 Unknown Reactive Lymphs % (Man) 0 % 09/13/17 Unknown Monocytes % (Manual) 19.0 % (0.0-7.3) H 09/13/17 Unknown Eosinophils % (Manual) 0 % (0.0-4.3) 09/13/17 Unknown Basophils % (Manual) 0 % (0.0-1.8) 09/13/17 Unknown Metamyelocytes % 3.0 % 09/13/17 Unknown Myelocytes % 1.0 % 09/13/17 Unknown Promyelocytes % 0 % 09/13/17 Unknown Blast Cells % 0 % 09/13/17 Unknown Nucleated RBC % 2.0 % (0.0-0.9) H 09/13/17 Unknown Seg Neutrophils # Healthcare Science Specialist 08/19/17 07:37 Seg Neutrophils # Man 11.4 K/mm3 (1.8-7.7) H 09/13/17 Unknown Band Neutrophils # 0.2 K/mm3 09/13/17 Unknown Lymphocytes # (Manual) 0.5 K/mm3 (1.2-5.4) L 09/13/17 Unknown Abs React Lymphs (Man) 0.0 K/mm3 09/13/17 Unknown Monocytes # (Manual) 3.0 K/mm3 (0.0-0.8) H 09/13/17 Unknown Eosinophils # (Manual) 0.0 K/mm3 (0.0-0.4) 09/13/17 Unknown Basophils # (Manual) 0.0 K/mm3 (0.0-0.1) 09/13/17 Unknown Metamyelocytes # 0.5 K/mm3 09/13/17 Unknown Myelocytes # 0.2 K/mm3 09/13/17 Unknown Promyelocytes # 0.0 K/mm3 09/13/17 Unknown Blast Cells # 0.0 K/mm3 09/13/17 Unknown Pathologist Review Not Reportable 08/30/17 05:20 WBC Morphology Not Reportable 09/13/17 Unknown Hypersegmented Neuts Not Reportable 09/13/17 Unknown Hyposegmented Neuts Not Reportable 09/13/17 Unknown Hypogranular Neuts Not Reportable 09/13/17 Unknown Smudge Cells Not Reportable 09/13/17 Unknown Toxic Granulation Not Reportable 09/13/17 Unknown Toxic Vacuolation Not Reportable 09/13/17 Unknown Dohle Bodies Not Reportable 09/13/17 Unknown Pelger-Huet Anomaly Not Reportable 09/13/17 Unknown Ariel Rods Not Reportable 09/13/17 Unknown Platelet Estimate Appears decreased 09/13/17 Unknown Clumped Platelets Not Reportable 09/13/17 Unknown Plt Clumps, EDTA Not Reportable 09/13/17 Unknown Large Platelets Not Reportable 09/13/17 Unknown Giant Platelets Not Reportable 09/13/17 Unknown Platelet Satelliting Not Reportable 09/13/17 Unknown Plt Morphology Comment Not Reportable 09/13/17 Unknown RBC Morphology Not Reportable 09/13/17 Unknown Dimorphic RBCs Not Reportable 09/13/17 Unknown Polychromasia Few 09/13/17 Unknown Hypochromasia Not Reportable 09/13/17 Unknown Poikilocytosis Not Reportable 09/13/17 Unknown Anisocytosis 1+ 09/13/17 Unknown Microcytosis Not Reportable 09/13/17 Unknown Macrocytosis Few 09/13/17 Unknown Spherocytes Not Reportable 09/13/17 Unknown Pappenheimer Bodies Not Reportable 09/13/17 Unknown Sickle Cells Not Reportable 09/13/17 Unknown Target Cells Not Reportable 09/13/17 Unknown Tear Drop Cells Not Reportable 09/13/17 Unknown Ovalocytes Not Reportable 09/13/17 Unknown Stomatocytes Rare 09/12/17 05:25 Helmet Cells Not Reportable 09/13/17 Unknown Vera-Bellmore Bodies Not Reportable 09/13/17 Unknown [place] Rings Not Reportable 09/13/17 Unknown [place] Cells Not Reportable 09/13/17 Unknown Bite Cells Not Reportable 09/13/17 Unknown Crenated Cell Not Reportable 09/13/17 Unknown Elliptocytes Not Reportable 09/13/17 Unknown Acanthocytes (Spur) Not Reportable 09/13/17 Unknown Rouleaux Not Reportable 09/13/17 Unknown Hemoglobin C Crystals Not Reportable 09/13/17 Unknown Schistocytes Not Reportable 09/13/17 Unknown Malaria parasites Not Reportable 09/13/17 Unknown Jovanni Bodies Not Reportable 09/13/17 Unknown Hem Pathologist Commnt No 09/13/17 Unknown PT 15.1 Sec. (12.2-14.9) H 08/31/17 18:15 INR 1.13 (0.87-1.13) 08/31/17 18:15 APTT 28.7 Sec. (24.2-36.6) 08/31/17 18:15 POC ABG pH 7.347 (7.35-7.45) L 09/13/17 11:36 ABG pH 7.323 pH Units (7.350-7.450) L 09/09/17 Unknown POC ABG pCO2 34.3 (35-45) L 09/13/17 11:36 ABG pCO2 41.1 mm Hg 09/09/17 Unknown POC ABG pO2 134 (80-105) H 09/13/17 11:36 ABG pO2 94.1 mm Hg (80.0-90.0) H 09/09/17 Unknown POC ABG HCO3 18.8 09/13/17 11:36 ABG HCO3 20.9 mmol/L (20.0-26.0) 09/09/17 Unknown POC ABG Total CO2 20 09/13/17 11:36 POC ABG O2 Sat 99 09/13/17 11:36 ABG O2 Saturation 97.2 % (95.0-99.0) 09/09/17 Unknown ABG O2 Content 10.9 (0.0-44) 09/09/17 Unknown POC ABG Base Excess -7 09/13/17 11:36 ABG Base Excess -4.8 mmol/L (-2.0-3.0) L 09/09/17 Unknown ABG Hemoglobin 8.0 gm/dl (12.0-16.0) L 09/09/17 Unknown ABG Carboxyhemoglobin 2.0 % (0.0-5.0) 09/09/17 Unknown ABG Methemoglobin 0.3 % (0.0-1.5) 09/09/17 Unknown VBG pH 7.462 (7.320-7.420) H 08/08/17 14:52 Oxyhemoglobin 94.9 % (95.0-99.0) L 09/09/17 Unknown FiO2 30 % 09/13/17 11:36 Sodium 139 mmol/L (137-145) 09/14/17 03:15 Potassium 4.3 mmol/L (3.6-5.0) 09/14/17 03:15 Chloride 99.6 mmol/L (98-107) 09/14/17 03:15 Carbon Dioxide 22 mmol/L (22-30) 09/14/17 03:15 Anion Gap 22 mmol/L 09/14/17 03:15 BUN 75 mg/dL (7-17) H 09/14/17 03:15 Creatinine 2.1 mg/dL (0.7-1.2) H 09/14/17 03:15 Estimated GFR 29 ml/min 09/14/17 03:15 BUN/Creatinine Ratio 36 % 09/14/17 03:15 Glucose 217 mg/dL (65-100) H 09/14/17 03:15 POC Glucose 283 (70-105) H 09/14/17 05:16 Lactic Acid 1.60 mmol/L (0.7-2.0) 08/17/17 11:20 Calcium 8.5 mg/dL (8.4-10.2) 09/14/17 03:15 Phosphorus 2.20 mg/dL (2.5-4.5) L D 09/14/17 03:15 Magnesium 1.80 mg/dL (1.7-2.3) 09/13/17 Unknown Iron 22 ug/dL (37-170) L 09/12/17 05:25 TIBC 81 mcg/dL (250-450) L 09/12/17 05:25 Ferritin > 2000.0 ng/mL (13.0-400.0) H 09/12/17 05:25 Total Bilirubin 1.00 mg/dL (0.1-1.2) 09/08/17 04:05 Direct Bilirubin 0.2 mg/dL (0-0.2) 08/08/17 14:11 Indirect Bilirubin 0.3 mg/dL 08/08/17 14:11 AST 14 units/L (5-40) 09/08/17 04:05 ALT 16 units/L (7-56) 09/08/17 04:05 Alkaline Phosphatase 199 units/L (35-129) H 09/08/17 04:05 Ammonia 25.0 umol/L (25-60) 08/08/17 14:52 Troponin T 0.132 ng/mL (0.00-0.029) H* 08/09/17 13:25 C-Reactive Protein 2.80 mg/dL (0.00-1.30) H 09/06/17 05:30 NT-Pro-B Natriuret Pep 6156 pg/mL (0-900) H 08/08/17 14:11 Total Protein 4.5 g/dL (6.3-8.2) L 09/08/17 04:05 Albumin < 0.2 g/dL (3.9-5) L 09/13/17 Unknown Albumin/Globulin Ratio 0.6 % 09/08/17 04:05 Triglycerides 180 mg/dL (2-149) H 09/03/17 04:00 Cholesterol 91 mg/dL (50-199) 08/08/17 21:23 LDL Cholesterol Direct 53 mg/dL (50-130) 08/08/17 21:23 HDL Cholesterol 26 mg/dL (40-59) L 08/08/17 21:23 Cholesterol/HDL Ratio 3.50 % 08/08/17 21:23 Amylase 45 units/L (27-131) 08/16/17 09:50 Lipase 34 units/L (13-60) 08/16/17 09:50 TSH 6.580 mlU/mL (0.270-4.200) H 08/08/17 14:22 Free T4 1.46 ng/dL (0.76-1.46) 08/08/17 14:22 Total Cortisol 30.1 mcg/dL () 08/13/17 06:14 Urine Color Yellow (Yellow) 08/08/17 20:15 Urine Turbidity Turbid (Clear) 08/08/17 20:15 Urine pH 8.0 (5.0-7.0) H 08/08/17 20:15 Ur Specific [place] 1.015 (1.003-1.030) 08/08/17 20:15 Urine Protein 100 mg/dl mg/dL (Negative) 08/08/17 20:15 Urine Glucose (UA) Neg mg/dL (Negative) 08/08/17 20:15 Urine Ketones Neg mg/dL (Negative) 08/08/17 20:15 Urine Blood Mod (Negative) 08/08/17 20:15 Urine Nitrite Neg (Negative) 08/08/17 20:15 Urine Bilirubin Neg (Negative) 08/08/17 20:15 Urine Urobilinogen < 2.0 mg/dL (<2.0) 08/08/17 20:15 Ur Leukocyte Esterase Lg (Negative) 08/08/17 20:15 Urine WBC (Auto) 24.0 /HPF (0.0-6.0) H 08/08/17 20:15 Urine RBC (Auto) 3.0 /HPF (0.0-6.0) 08/08/17 20:15 U Epithel Cells (Auto) 3.0 /HPF (0-13.0) 08/08/17 20:15 Urine Bacteria (Auto) 4+ /HPF (Negative) 08/08/17 20:15 Urine Mucus 3+ /HPF 08/08/17 20:15 Fluid Type Peritoneal 08/08/17 18:18 Fluid Color Straw 08/08/17 18:18 Fluid Appearance Clear 08/08/17 18:18 Fluid pH 7.74 08/08/17 18:18 Fluid WBC 4 /mm3 08/08/17 18:18 Fluid RBC 1 /mm3 08/08/17 18:18 Fluid Seg Neutrophils 12 % 08/08/17 18:18 Fluid Lymphocytes 0 % 08/08/17 18:18 Fluid Reactive Lymphs 0 % 08/08/17 18:18 Fluid Monocytes 1 % 08/08/17 18:18 Fluid Eosinophils 0 % 08/08/17 18:18 Fluid Basophils 0 % 08/08/17 18:18 Fluid Glucose 315 mg/dL (40-70) H 08/08/17 18:18 Random Vancomycin 19.5 ug/mL (0-40.0) 08/22/17 03:40 Hep Bs Antigen Non-reactive (Negative) 08/22/17 03:40 Hepatitis C Antibody Non-reactive (NonReactive) 08/22/17 03:40 Miscellaneous Test Flexitest 1 H 09/06/17 09:57 Blood Type O POSITIVE 09/12/17 09:14 Antibody Screen Negative 09/12/17 09:14 VAN Antibody Screen Negative 09/07/17 17:07 Crossmatch See Detail 09/12/17 09:14
[2017-09-14] MEDS: ALBURX 25% (ALBUMIN) IV SCH ×2 (09:30→21:21)
[2017-09-14] MEDS: PROTONIX IV SCH (09:30)
--- NOTE | 2017-09-14 10:17 | Progress Note ---
Assessment and Plan - Patient Problems (1) Severe muscle deconditioning Current Visit: Yes Status: Acute (2) ARF (acute renal failure) Current Visit: Yes Status: Acute Qualifiers: Acute renal failure type: A (3) Acute hypercapnic respiratory failure Current Visit: Yes Status: Acute (4) Acute respiratory failure with hypoxemia Current Visit: Yes Status: Acute (5) Anemia Current Visit: Yes Status: Acute Qualifiers: Anemia type: A Iron deficiency anemia type: I Vitamin B12 deficiency anemia type: V Folate deficiency anemia type: F Bone marrow failure anemia type: B Hemolytic anemia type: H Other causes of anemia: O Chronic kidney disease stage: C (6) Autonomic dysfunction Current Visit: Yes Status: Acute (7) ESRD (end stage renal disease) on dialysis Current Visit: Yes Status: Acute (8) Sepsis Current Visit: Yes Status: Acute Qualifiers: Sepsis type: S (9) Volume overload Current Visit: Yes Status: Acute Qualifiers: Hypervolemia type: H (10) Vomiting Current Visit: Yes Status: Acute Qualifiers: Vomiting type: V Vomiting Intractability: V Nausea presence: with nausea Subjective Principal diagnosis: respiratory failure, sepsis, shock rectal bleeding Interval history: at bedside trach in place on vent Objective Vital Signs - 12hr 09/13/17 09/13/17 09/13/17 22:15 22:25 22:31 Temperature 98.9 F Pulse Rate 95 H 81 104 H Pulse Rate [ Anterior Bilateral Throughout] Pulse Rate [ Right] Respiratory 17 20 24 Rate Respiratory Rate [Anterior Bilateral Throughout] Blood Pressure 112/54 O2 Sat by Pulse 100 100 Oximetry O2 Sat by Pulse Oximetry [ Assessment] 09/13/17 09/13/17 09/13/17 22:45 22:54 23:01 Temperature Pulse Rate 104 H 88 87 Pulse Rate [ Anterior Bilateral Throughout] Pulse Rate [ Right] Respiratory 15 20 20 Rate Respiratory Rate [Anterior Bilateral Throughout] Blood Pressure O2 Sat by Pulse 100 100 100 Oximetry O2 Sat by Pulse Oximetry [ Assessment] 09/13/17 09/13/17 09/13/17 23:09 23:15 23:31 Temperature Pulse Rate 84 88 77 Pulse Rate [ Anterior Bilateral Throughout] Pulse Rate [ Right] Respiratory 20 19 20 Rate Respiratory Rate [Anterior Bilateral Throughout] Blood Pressure O2 Sat by Pulse 100 100 100 Oximetry O2 Sat by Pulse Oximetry [ Assessment] 09/13/17 09/13/1709/13/17 23:45 23:48 23:51 Temperature Pulse Rate 86 87 Pulse Rate [ Anterior Bilateral Throughout] Pulse Rate [ Right] Respiratory 20 Rate Respiratory Rate [Anterior Bilateral Throughout] Blood Pressure 112/54 O2 Sat by Pulse 100 100 Oximetry O2 Sat by Pulse 100 Oximetry [ Assessment] 09/14/17 09/14/17 09/14/17 00:00 00:01 00:15 Temperature 99.0 F Pulse Rate 80 78 85 Pulse Rate [ Anterior Bilateral Throughout] Pulse Rate [ Right] Respiratory 20 20 20 Rate Respiratory Rate [Anterior Bilateral Throughout] Blood Pressure O2 Sat by Pulse 100 100 100 Oximetry O2 Sat by Pulse Oximetry [ Assessment] 09/14/17 09/14/17 09/14/17 00:31 00:45 01:00 Temperature Pulse Rate 100 H 80 Pulse Rate [ Anterior Bilateral Throughout] Pulse Rate [ 144 H Right] Respiratory 28 H 20 20 Rate Respiratory Rate [Anterior Bilateral Throughout] Blood Pressure 112/54 O2 Sat by Pulse 99 100 100 Oximetry O2 Sat by Pulse Oximetry [ Assessment] 09/14/17 09/14/17 09/14/17 01:01 01:15 01:31 Temperature Pulse Rate 80 79 88 Pulse Rate [ Anterior Bilateral Throughout] Pulse Rate [ Right] Respiratory 20 20 18 Rate Respiratory Rate [Anterior Bilateral Throughout] Blood Pressure O2 Sat by Pulse 100 100 100 Oximetry O2 Sat by Pulse Oximetry [ Assessment] 09/14/17 09/14/17 09/14/17 01:45 02:00 02:01 Temperature Pulse Rate 77 78 78 Pulse Rate [ 79 Anterior Bilateral Throughout] Pulse Rate [ Right] Respiratory 20 20 Rate Respiratory 20 Rate [Anterior Bilateral Throughout] Blood Pressure O2 Sat by Pulse 98 100 88 Oximetry O2 Sat by Pulse Oximetry [ Assessment] 09/14/17 09/14/17 09/14/17 02:15 02:31 02:45 Temperature Pulse Rate 77 76 78 Pulse Rate [ Anterior Bilateral Throughout] Pulse Rate [ Right] Respiratory 20 20 20 Rate Respiratory Rate [Anterior Bilateral Throughout] Blood Pressure O2 Sat by Pulse 96 88 99 Oximetry O2 Sat by Pulse Oximetry [ Assessment] 09/14/17 09/14/17 09/14/17 03:01 03:10 03:15 Temperature Pulse Rate 78 84 Pulse Rate [ Anterior Bilateral Throughout] Pulse Rate [ Right] Respiratory 20 20 20 Rate Respiratory Rate [Anterior Bilateral Throughout] Blood Pressure O2 Sat by Pulse 91 99 91 Oximetry O2 Sat by Pulse Oximetry [ Assessment] 09/14/17 09/14/17 09/14/17 03:31 03:45 03:50 Temperature 98.4 F Pulse Rate 86 92 H Pulse Rate [ Anterior Bilateral Throughout] Pulse Rate [ Right] Respiratory 20 19 Rate Respiratory Rate [Anterior Bilateral Throughout] Blood Pressure O2 Sat by Pulse 91 97 Oximetry O2 Sat by Pulse Oximetry [ Assessment] 09/14/17 09/14/17 09/14/17 04:01 04:15 04:23 Temperature Pulse Rate 91 H 109 H Pulse Rate [ Anterior Bilateral Throughout] Pulse Rate [ Right] Respiratory 20 18 17 Rate Respiratory Rate [Anterior Bilateral Throughout] Blood Pressure O2 Sat by Pulse 98 100 99 Oximetry O2 Sat by Pulse Oximetry [ Assessment] 09/14/17 09/14/17 09/14/17 04:31 04:41 04:45 Temperature Pulse Rate 89 109 H 82 Pulse Rate [ Anterior Bilateral Throughout] Pulse Rate [ Right] Respiratory 20 20 Rate Respiratory Rate [Anterior Bilateral Throughout] Blood Pressure 112/54 O2 Sat by Pulse 99 98 98 Oximetry O2 Sat by Pulse Oximetry [ Assessment] 09/14/17 09/14/17 09/14/17 05:01 05:15 05:30 Temperature Pulse Rate 90 98 H 111 H Pulse Rate [ Anterior Bilateral Throughout] Pulse Rate [ Right] Respiratory 19 18 Rate Respiratory Rate [Anterior Bilateral Throughout] Blood Pressure O2 Sat by Pulse 100 100 Oximetry O2 Sat by Pulse Oximetry [ Assessment] 09/14/17 09/14/17 09/14/17 05:31 05:45 06:01 Temperature Pulse Rate 111 H 90 87 Pulse Rate [ Anterior Bilateral Throughout] Pulse Rate [ Right] Respiratory 19 20 22 Rate Respiratory Rate [Anterior Bilateral Throughout] Blood Pressure O2 Sat by Pulse 100 99 100 Oximetry O2 Sat by Pulse Oximetry [ Assessment] 09/14/17 09/14/17 09/14/17 06:15 06:31 06:45 Temperature Pulse Rate 83 82 98 H Pulse Rate [ Anterior Bilateral Throughout] Pulse Rate [ Right] Respiratory 20 20 16 Rate Respiratory Rate [Anterior Bilateral Throughout] Blood Pressure O2 Sat by Pulse 100 99 100 Oximetry O2 Sat by Pulse Oximetry [ Assessment] 09/14/17 09/14/17 09/14/17 07:01 07:15 07:31 Temperature Pulse Rate 87 102 H 81 Pulse Rate [ Anterior Bilateral Throughout] Pulse Rate [ Right] Respiratory 20 29 H 20 Rate Respiratory Rate [Anterior Bilateral Throughout] Blood Pressure O2 Sat by Pulse 100 100 100 Oximetry O2 Sat by Pulse Oximetry [ Assessment] 09/14/17 09/14/17 09/14/17 07:45 08:00 08:01 Temperature 98.0 F Pulse Rate 99 H 94 H Pulse Rate [ Anterior Bilateral Throughout] Pulse Rate [ Right] Respiratory 25 H 19 Rate Respiratory Rate [Anterior Bilateral Throughout] Blood Pressure O2 Sat by Pulse 100 98 100 Oximetry O2 Sat by Pulse Oximetry [ Assessment] 09/14/17 09/14/17 09/14/17 08:04 08:15 08:31 Temperature Pulse Rate 89 98 H 83 Pulse Rate [ 81 88 Anterior Bilateral Throughout] Pulse Rate [ Right] Respiratory 16 20 Rate Respiratory 20 20 Rate [Anterior Bilateral Throughout] Blood Pressure 118/51 O2 Sat by Pulse 100 100 100 Oximetry O2 Sat by Pulse Oximetry [ Assessment] 09/14/17 09/14/17 09/14/17 08:45 09:01 09:15 Temperature Pulse Rate 84 87 75 Pulse Rate [ Anterior Bilateral Throughout] Pulse Rate [ Right] Respiratory 18 20 20 Rate Respiratory Rate [Anterior Bilateral Throughout] Blood Pressure O2 Sat by Pulse 100 100 100 Oximetry O2 Sat by Pulse Oximetry [ Assessment] Constitutional: no acute distress, alert, other (critically ill on vent, obese) Eyes: non-icteric ENT: oropharynx moist, other (NGT) Neck: supple, no lymphadenopathy, no JVD (large neck), other (trach in position , no bleeding) Effort: mildly labored Ascultation: Bilateral: diminished breath sounds (Limited expansion), wheezes ( faint expiratory wheezes), other (coarse BS bilaterally) Cardiovascular: regular rate and rhythm Gastrointestinal: absent bowel sounds, non-tender, other (abdominal incision with dressing noted, obese. Drain in place no bleeding) Integumentary: normal Extremities: no cyanosis, pink and warm, edema (2+ bilateral LE edema) Neurologic: non-focal exam, pupils equal and round, other (RA SS -0) Psychiatric: mood appropriate, affect normal CBC and BMP: 09/14/17 03:15 09/14/17 03:15 ABG, PT/INR, D-dimer: ABG POC ABG pH 7.347 (7.35-7.45) L 09/13/17 11:36 ABG pH 7.323 pH Units (7.350-7.450) L 09/09/17 Unknown POC ABG pCO2 34.3 (35-45) L 09/13/17 11:36 ABG pCO2 41.1 mm Hg 09/09/17 Unknown POC ABG pO2 134 (80-105) H 09/13/17 11:36 ABG pO2 94.1 mm Hg (80.0-90.0) H 09/09/17 Unknown POC ABG HCO3 18.8 09/13/17 11:36 POC ABG Total CO2 20 09/13/17 11:36 POC ABG O2 Sat 99 09/13/17 11:36 ABG O2 Saturation 97.2 % (95.0-99.0) 09/09/17 Unknown PT/INR, D-dimer PT 15.1 Sec. (12.2-14.9) H 08/31/17 18:15 INR 1.13 (0.87-1.13) 08/31/17 18:15 Abnormal lab findings: Abnormal Labs 08/08/17 08/08/17 08/09/17 21:23 21:31 11:19 WBC 15.7 H RBC 2.93 L Hgb 8.7 L Hct 26.8 L MCV MCH RDW 19.2 H Plt Count Lymph % (Auto) [place] % (Auto) [place] # Seg Neutrophils % Seg Neuts % (Manual) Lymphocytes % (Manual) Monocytes % (Manual) Nucleated RBC % Seg Neutrophils # Seg Neutrophils # Man Lymphocytes # (Manual) Monocytes # (Manual) Eosinophils # (Manual) Basophils # (Manual) PT INR POC ABG pH 7.490 H ABG pH POC ABG pCO2 POC ABG pO2 122 H ABG pO2 ABG O2 Saturation ABG Base Excess ABG Hemoglobin Oxyhemoglobin Sodium Potassium Chloride Carbon Dioxide BUN Creatinine Glucose POC Glucose Calcium Phosphorus Magnesium Iron TIBC Ferritin AST ALT Alkaline Phosphatase Troponin T 0.133 H* C-Reactive Protein Total Protein Albumin Triglycerides HDL Cholesterol 26 L Miscellaneous Test Crossmatch 08/09/17 08/10/17 08/10/17 13:25 04:45 04:45 WBC 15.5 H RBC 2.97 L Hgb 8.9 L Hct 27.0 L MCV MCH RDW 19.2 H Plt Count Lymph % (Auto) [place] % (Auto) [place] # Seg Neutrophils % Seg Neuts % (Manual) 73.0 H Lymphocytes % (Manual) 7.0 L Monocytes % (Manual) 14.0 H Nucleated RBC % Seg Neutrophils # Seg Neutrophils # Man 11.3 H Lymphocytes # (Manual) 1.1 L Monocytes # (Manual) 2.2 H Eosinophils # (Manual) Basophils # (Manual) 0.2 H PT INR POC ABG pH ABG pH POC ABG pCO2 POC ABG pO2 ABG pO2 ABG O2 Saturation ABG Base Excess ABG Hemoglobin Oxyhemoglobin Sodium Potassium 3.3 L Chloride 97.3 L Carbon Dioxide 21 L BUN 23 H Creatinine 6.5 H Glucose POC Glucose Calcium 7.3 L Phosphorus Magnesium Iron TIBC Ferritin AST ALT Alkaline Phosphatase 138 H Troponin T 0.132 H* C-Reactive Protein Total Protein 4.8 L Albumin 1.4 L Triglycerides HDL Cholesterol Miscellaneous Test Crossmatch 08/11/17 08/11/17 08/12/17 04:00 04:00 05:50 WBC 19.3 H RBC 3.10 L Hgb 9.5 L Hct 28.2 L MCV MCH RDW 19.2 H Plt Count 463 H Lymph % (Auto) 7.5 L [place] % (Auto) 14.6 H [place] # 2.8 H Seg Neutrophils % 77.0 H Seg Neuts % (Manual) Lymphocytes % (Manual) Monocytes % (Manual) Nucleated RBC % Seg Neutrophils # 14.8 H Seg Neutrophils # Man Lymphocytes # (Manual) Monocytes # (Manual) Eosinophils # (Manual) Basophils # (Manual) PT INR POC ABG pH ABG pH POC ABG pCO2 POC ABG pO2 ABG pO2 ABG O2 Saturation ABG Base Excess ABG Hemoglobin Oxyhemoglobin Sodium 136 L 136 L Potassium 3.3 L Chloride 96.3 L 96.6 L Carbon Dioxide BUN 26 H 26 H Creatinine 6.4 H 6.2 H Glucose 135 H 133 H POC Glucose Calcium 8.2 L Phosphorus Magnesium 1.30 L Iron TIBC Ferritin AST ALT Alkaline Phosphatase 139 H Troponin T C-Reactive Protein Total Protein 5.5 L Albumin 1.7 L Triglycerides HDL Cholesterol Miscellaneous Test Crossmatch 08/12/17 08/12/17 08/12/17 05:50 05:50 05:50 WBC 20.1 H RBC 3.06 L Hgb 9.3 L Hct 27.9 L MCV MCH RDW 18.4 H Plt Count 471 H Lymph % (Auto) [place] % (Auto) [place] # Seg Neutrophils % Seg Neuts % (Manual) 85.0 H Lymphocytes % (Manual) 8.0 L Monocytes % (Manual) Nucleated RBC % Seg Neutrophils # Seg Neutrophils # Man 17.1 H Lymphocytes # (Manual) Monocytes # (Manual) 1.0 H Eosinophils # (Manual) Basophils # (Manual) PT 15.2 H INR 1.14 H POC ABG pH ABG pH POC ABG pCO2 POC ABG pO2 ABG pO2 ABG O2 Saturation ABG Base Excess ABG Hemoglobin Oxyhemoglobin Sodium Potassium Chloride Carbon Dioxide BUN Creatinine Glucose POC Glucose Calcium Phosphorus Magnesium Iron TIBC Ferritin AST ALT Alkaline Phosphatase Troponin T C-Reactive Protein 28.90 H Total Protein Albumin Triglycerides HDL Cholesterol Miscellaneous Test Crossmatch 08/12/17 08/13/17 08/13/17 16:23 06:14 06:14 WBC 21.8 H RBC 3.11 L Hgb 9.4 L Hct 28.2 L MCV MCH RDW 18.2 H Plt Count 492 H Lymph % (Auto) [place] % (Auto) [place] # Seg Neutrophils % Seg Neuts % (Manual) 73.0 H Lymphocytes % (Manual) 2.0 L Monocytes % (Manual) 15 H Nucleated RBC % Seg Neutrophils # Seg Neutrophils # Man 15.9 H Lymphocytes # (Manual) 0.4 L Monocytes # (Manual) 2.4 H Eosinophils # (Manual) Basophils # (Manual) PT INR POC ABG pH ABG pH POC ABG pCO2 POC ABG pO2 ABG pO2 ABG O2 Saturation ABG Base Excess ABG Hemoglobin Oxyhemoglobin Sodium Potassium Chloride 96.2 L Carbon Dioxide BUN 28 H Creatinine 5.6 H Glucose 114 H POC Glucose Calcium Phosphorus Magnesium Iron TIBC Ferritin AST ALT Alkaline Phosphatase Troponin T C-Reactive Protein 26.10 H Total Protein Albumin Triglycerides HDL Cholesterol Miscellaneous Test Crossmatch 08/13/17 08/14/17 08/14/17 16:39 04:00 04:00 WBC 22.1 H RBC 3.25 L Hgb 9.9 L Hct 29.5 L MCV MCH RDW 17.9 H Plt Count 525 H Lymph % (Auto) [place] % (Auto) [place] # Seg Neutrophils % Seg Neuts % (Manual) 74.0 H Lymphocytes % (Manual) 8.0 L Monocytes % (Manual) 12.0 H Nucleated RBC % Seg Neutrophils # Seg Neutrophils # Man 16.4 H Lymphocytes # (Manual) Monocytes # (Manual) 2.7 H Eosinophils # (Manual) Basophils # (Manual) PT INR POC ABG pH ABG pH POC ABG pCO2 POC ABG pO2 ABG pO2 ABG O2 Saturation ABG Base Excess ABG Hemoglobin Oxyhemoglobin Sodium 134 L Potassium 3.3 L Chloride 93.3 L Carbon Dioxide BUN 27 H Creatinine 6.0 H Glucose 152 H POC Glucose 151 H Calcium Phosphorus Magnesium Iron TIBC Ferritin AST ALT Alkaline Phosphatase Troponin T C-Reactive Protein Total Protein Albumin Triglycerides HDL Cholesterol Miscellaneous Test Crossmatch 08/15/17 08/16/17 08/16/17 09:10 09:50 09:50 WBC 31.1 H RBC 3.21 L Hgb 9.6 L Hct 29.3 L MCV MCH RDW 18.1 H Plt Count 642 H Lymph % (Auto) [place] % (Auto) [place] # Seg Neutrophils % Seg Neuts % (Manual) 74.0 H Lymphocytes % (Manual) 4.0 L Monocytes % (Manual) 9.0 H Nucleated RBC % Seg Neutrophils # Seg Neutrophils # Man 23.0 H Lymphocytes # (Manual) Monocytes # (Manual) 2.8 H Eosinophils # (Manual) Basophils # (Manual) PT INR POC ABG pH ABG pH POC ABG pCO2 POC ABG pO2 ABG pO2 ABG O2 Saturation ABG Base Excess ABG Hemoglobin Oxyhemoglobin Sodium 136 L 136 L Potassium 3.5 L Chloride 97.6 L 94.9 L Carbon Dioxide BUN 27 H 28 H Creatinine 5.6 H 5.5 H Glucose 117 H 103 H POC Glucose Calcium Phosphorus Magnesium Iron TIBC Ferritin AST ALT Alkaline Phosphatase 137 H Troponin T C-Reactive Protein Total Protein 5.4 L Albumin 1.5 L Triglycerides HDL Cholesterol Miscellaneous Test Crossmatch 08/16/17 08/17/17 08/17/17 09:50 05:00 06:26 WBC RBC Hgb Hct MCV MCH RDW Plt Count Lymph % (Auto) [place] % (Auto) [place] # Seg Neutrophils % Seg Neuts % (Manual) Lymphocytes % (Manual) Monocytes % (Manual) Nucleated RBC % Seg Neutrophils # Seg Neutrophils # Man Lymphocytes # (Manual) Monocytes # (Manual) Eosinophils # (Manual) Basophils # (Manual) PT INR POC ABG pH ABG pH POC ABG pCO2 POC ABG pO2 ABG pO2 ABG O2 Saturation ABG Base Excess ABG Hemoglobin Oxyhemoglobin Sodium 134 L Potassium 3.0 L Chloride 97.8 L Carbon Dioxide BUN 30 H Creatinine 5.3 H Glucose 147 H POC Glucose 165 H Calcium 7.5 L Phosphorus Magnesium Iron TIBC Ferritin AST ALT Alkaline Phosphatase Troponin T C-Reactive Protein 32.30 H Total Protein Albumin Triglycerides HDL Cholesterol Miscellaneous Test Crossmatch 08/17/17 08/17/17 08/17/17 10:56 11:20 11:20 WBC 39.1 H RBC 3.10 L Hgb 9.2 L Hct 28.6 L MCV MCH RDW 18.3 H Plt Count 580 H Lymph % (Auto) [place] % (Auto) [place] # Seg Neutrophils % Seg Neuts % (Manual) 89.5 H Lymphocytes % (Manual) 3.5 L Monocytes % (Manual) Nucleated RBC % Seg Neutrophils # Seg Neutrophils # Man 35.0 H Lymphocytes # (Manual) Monocytes # (Manual) 2.5 H Eosinophils # (Manual) Basophils # (Manual) 0.2 H PT INR POC ABG pH 7.464 H ABG pH POC ABG pCO2 34.1 L POC ABG pO2 75 L ABG pO2 ABG O2 Saturation ABG Base Excess ABG Hemoglobin Oxyhemoglobin Sodium Potassium Chloride Carbon Dioxide BUN Creatinine Glucose POC Glucose Calcium Phosphorus Magnesium Iron TIBC Ferritin AST ALT Alkaline Phosphatase Troponin T C-Reactive Protein Total Protein Albumin Triglycerides HDL Cholesterol Miscellaneous Test Flexitest 1 H Crossmatch 08/17/17 08/17/17 08/17/17 11:20 16:57 20:20 WBC 34.4 H RBC 2.81 L Hgb 8.4 L Hct 26.0 L MCV MCH RDW 17.8 H Plt Count 455 H Lymph % (Auto) [place] % (Auto) [place] # Seg Neutrophils % Seg Neuts % (Manual) Lymphocytes % (Manual) 3.5 L Monocytes % (Manual) Nucleated RBC % 5.0 H Seg Neutrophils # Seg Neutrophils # Man 16.5 H Lymphocytes # (Manual) Monocytes # (Manual) 1.0 H Eosinophils # (Manual) Basophils # (Manual) PT 16.0 H INR 1.29 H POC ABG pH ABG pH POC ABG pCO2 POC ABG pO2 ABG pO2 ABG O2 Saturation ABG Base Excess ABG Hemoglobin Oxyhemoglobin Sodium 135 L Potassium 2.9 L* Chloride Carbon Dioxide 20 L BUN 32 H Creatinine 5.4 H Glucose 129 H POC Glucose Calcium 7.5 L Phosphorus Magnesium 1.50 L Iron TIBC Ferritin AST 85 H ALT Alkaline Phosphatase Troponin T C-Reactive Protein Total Protein 4.0 L D Albumin 1.6 L Triglycerides HDL Cholesterol Miscellaneous Test Crossmatch 08/17/17 08/17/17 08/18/17 20:54 23:47 04:26 WBC RBC Hgb Hct MCV MCH RDW Plt Count Lymph % (Auto) [place] % (Auto) [place] # Seg Neutrophils % Seg Neuts % (Manual) Lymphocytes % (Manual) Monocytes % (Manual) Nucleated RBC % Seg Neutrophils # Seg Neutrophils # Man Lymphocytes # (Manual) Monocytes # (Manual) Eosinophils # (Manual) Basophils # (Manual) PT INR POC ABG pH 7.557 H ABG pH POC ABG pCO2 23.1 L 29.0 L POC ABG pO2 187 H 148 H ABG pO2 ABG O2 Saturation ABG Base Excess ABG Hemoglobin Oxyhemoglobin Sodium Potassium Chloride Carbon Dioxide BUN Creatinine Glucose POC Glucose 188 H Calcium Phosphorus Magnesium Iron TIBC Ferritin AST ALT Alkaline Phosphatase Troponin T C-Reactive Protein Total Protein Albumin Triglycerides HDL Cholesterol Miscellaneous Test Crossmatch 08/18/17 08/18/17 08/18/17 05:51 11:44 17:07 WBC RBC Hgb Hct MCV MCH RDW Plt Count Lymph % (Auto) [place] % (Auto) [place] # Seg Neutrophils % Seg Neuts % (Manual) Lymphocytes % (Manual) Monocytes % (Manual) Nucleated RBC % Seg Neutrophils # Seg Neutrophils # Man Lymphocytes # (Manual) Monocytes # (Manual) Eosinophils # (Manual) Basophils # (Manual) PT INR POC ABG pH ABG pH POC ABG pCO2 POC ABG pO2 ABG pO2 ABG O2 Saturation ABG Base Excess ABG Hemoglobin Oxyhemoglobin Sodium Potassium Chloride Carbon Dioxide BUN Creatinine Glucose POC Glucose 202 H 195 H 182 H Calcium Phosphorus Magnesium Iron TIBC Ferritin AST ALT Alkaline Phosphatase Troponin T C-Reactive Protein Total Protein Albumin Triglycerides HDL Cholesterol Miscellaneous Test Crossmatch 08/18/17 08/18/17 08/18/17 23:45 Unknown Unknown WBC 39.0 H RBC 2.84 L Hgb 8.4 L Hct 26.5 L MCV MCH RDW 18.0 H Plt Count 476 H Lymph % (Auto) [place] % (Auto) [place] # Seg Neutrophils % Seg Neuts % (Manual) Lymphocytes % (Manual) 7.0 L Monocytes % (Manual) 10.0 H Nucleated RBC % 3.0 H Seg Neutrophils # Seg Neutrophils # Man 15.6 H Lymphocytes # (Manual) Monocytes # (Manual) 3.9 H Eosinophils # (Manual) Basophils # (Manual) PT INR POC ABG pH ABG pH POC ABG pCO2 POC ABG pO2 ABG pO2 ABG O2 Saturation ABG Base Excess ABG Hemoglobin Oxyhemoglobin Sodium Potassium Chloride Carbon Dioxide 19 L BUN 34 H Creatinine 5.6 H Glucose 201 H POC Glucose 163 H Calcium 7.8 L Phosphorus 1.90 L D Magnesium 1.60 L Iron TIBC Ferritin AST ALT Alkaline Phosphatase Troponin T C-Reactive Protein Total Protein Albumin Triglycerides HDL Cholesterol Miscellaneous Test Crossmatch 08/19/17 08/19/17 08/19/17 04:18 05:00 05:00 WBC 40.0 H RBC 2.46 L Hgb 7.3 L Hct 22.6 L MCV MCH RDW 18.1 H Plt Count Lymph % (Auto) [place] % (Auto) [place] # Seg Neutrophils % Seg Neuts % (Manual) Lymphocytes % (Manual) 8.0 L Monocytes % (Manual) Nucleated RBC % 2.0 H Seg Neutrophils # Seg Neutrophils # Man 16.4 H Lymphocytes # (Manual) Monocytes # (Manual) 1.2 H Eosinophils # (Manual) 1.2 H Basophils # (Manual) PT INR POC ABG pH 7.463 H ABG pH POC ABG pCO2 29.7 L POC ABG pO2 134 H ABG pO2 ABG O2 Saturation ABG Base Excess ABG Hemoglobin Oxyhemoglobin Sodium Potassium 5.1 H D Chloride Carbon Dioxide 20 L BUN 40 H Creatinine 5.3 H Glucose 128 H POC Glucose Calcium 7.8 L Phosphorus 1.90 L Magnesium Iron TIBC Ferritin AST ALT Alkaline Phosphatase Troponin T C-Reactive Protein Total Protein Albumin Triglycerides HDL Cholesterol Miscellaneous Test Crossmatch 08/19/17 08/19/17 08/19/17 05:19 07:37 09:52 WBC 45.0 H* RBC 2.50 L Hgb 7.5 L Hct 24.5 L MCV 98 H MCH RDW 18.4 H Plt Count Lymph % (Auto) [place] % (Auto) [place] # Seg Neutrophils % Seg Neuts % (Manual) 81.5 H Lymphocytes % (Manual) 4.0 L Monocytes % (Manual) Nucleated RBC % 1.0 H Seg Neutrophils # Seg Neutrophils # Man 36.7 H Lymphocytes # (Manual) Monocytes # (Manual) Eosinophils # (Manual) Basophils # (Manual) PT INR POC ABG pH ABG pH POC ABG pCO2 POC ABG pO2 ABG pO2 ABG O2 Saturation ABG Base Excess ABG Hemoglobin Oxyhemoglobin Sodium Potassium Chloride Carbon Dioxide BUN Creatinine Glucose POC Glucose 142 H Calcium Phosphorus Magnesium Iron TIBC Ferritin AST ALT Alkaline Phosphatase Troponin T C-Reactive Protein 34.20 H Total Protein Albumin Triglycerides HDL Cholesterol Miscellaneous Test Crossmatch 08/19/17 08/19/17 08/20/17 11:16 18:12 00:35 WBC RBC Hgb Hct MCV MCH RDW Plt Count Lymph % (Auto) [place] % (Auto) [place] # Seg Neutrophils % Seg Neuts % (Manual) Lymphocytes % (Manual) Monocytes % (Manual) Nucleated RBC % Seg Neutrophils # Seg Neutrophils # Man Lymphocytes # (Manual) Monocytes # (Manual) Eosinophils # (Manual) Basophils # (Manual) PT INR POC ABG pH ABG pH POC ABG pCO2 POC ABG pO2 ABG pO2 ABG O2 Saturation ABG Base Excess ABG Hemoglobin Oxyhemoglobin Sodium Potassium Chloride Carbon Dioxide BUN Creatinine Glucose POC Glucose 143 H 137 H 164 H Calcium Phosphorus Magnesium Iron TIBC Ferritin AST ALT Alkaline Phosphatase Troponin T C-Reactive Protein Total Protein Albumin Triglycerides HDL Cholesterol Miscellaneous Test Crossmatch 08/20/17 08/20/17 08/20/17 03:20 03:20 04:00 WBC 48.0 H* RBC 2.55 L Hgb 7.6 L Hct 23.4 L MCV MCH RDW 18.4 H Plt Count Lymph % (Auto) [place] % (Auto) [place] # Seg Neutrophils % Seg Neuts % (Manual) 90.0 H Lymphocytes % (Manual) 3.0 L Monocytes % (Manual) Nucleated RBC % Seg Neutrophils # Seg Neutrophils # Man 43.2 H Lymphocytes # (Manual) Monocytes # (Manual) 1.4 H Eosinophils # (Manual) 0.5 H Basophils # (Manual) PT INR POC ABG pH 7.499 H ABG pH POC ABG pCO2 29.1 L POC ABG pO2 ABG pO2 ABG O2 Saturation ABG Base Excess ABG Hemoglobin Oxyhemoglobin Sodium 135 L Potassium Chloride Carbon Dioxide BUN 28 H Creatinine 4.0 H Glucose 140 H POC Glucose Calcium 8.0 L Phosphorus 1.70 L Magnesium 1.60 L Iron TIBC Ferritin AST ALT Alkaline Phosphatase Troponin T C-Reactive Protein Total Protein Albumin Triglycerides HDL Cholesterol Miscellaneous Test Crossmatch 08/20/17 08/20/17 08/20/17 05:02 12:05 13:12 WBC RBC Hgb Hct MCV MCH RDW Plt Count Lymph % (Auto) [place] % (Auto) [place] # Seg Neutrophils % Seg Neuts % (Manual) Lymphocytes % (Manual) Monocytes % (Manual) Nucleated RBC % Seg Neutrophils # Seg Neutrophils # Man Lymphocytes # (Manual) Monocytes # (Manual) Eosinophils # (Manual) Basophils # (Manual) PT INR POC ABG pH 7.537 H ABG pH POC ABG pCO2 27.9 L POC ABG pO2 79 L ABG pO2 ABG O2 Saturation ABG Base Excess ABG Hemoglobin Oxyhemoglobin Sodium Potassium Chloride Carbon Dioxide BUN Creatinine Glucose POC Glucose 158 H 203 H Calcium Phosphorus Magnesium Iron TIBC Ferritin AST ALT Alkaline Phosphatase Troponin T C-Reactive Protein Total Protein Albumin Triglycerides HDL Cholesterol Miscellaneous Test Crossmatch 08/20/17 08/21/17 08/21/17 17:13 00:47 03:14 WBC RBC Hgb Hct MCV MCH RDW Plt Count Lymph % (Auto) [place] % (Auto) [place] # Seg Neutrophils % Seg Neuts % (Manual) Lymphocytes % (Manual) Monocytes % (Manual) Nucleated RBC % Seg Neutrophils # Seg Neutrophils # Man Lymphocytes # (Manual) Monocytes # (Manual) Eosinophils # (Manual) Basophils # (Manual) PT INR POC ABG pH 7.481 H ABG pH POC ABG pCO2 29.6 L POC ABG pO2 ABG pO2 ABG O2 Saturation ABG Base Excess ABG Hemoglobin Oxyhemoglobin Sodium Potassium Chloride Carbon Dioxide BUN Creatinine Glucose POC Glucose 188 H 109 H Calcium Phosphorus Magnesium Iron TIBC Ferritin AST ALT Alkaline Phosphatase Troponin T C-Reactive Protein Total Protein Albumin Triglycerides HDL Cholesterol Miscellaneous Test Crossmatch 08/21/17 08/21/17 08/21/17 05:05 06:50 06:50 WBC 44.7 H* RBC 2.41 L Hgb 7.1 L Hct 22.1 L MCV MCH RDW 18.3 H Plt Count Lymph % (Auto) [place] % (Auto) [place] # Seg Neutrophils % Seg Neuts % (Manual) 89.0 H Lymphocytes % (Manual) 0 L Monocytes % (Manual) Nucleated RBC % 1.0 H Seg Neutrophils # Seg Neutrophils # Man 39.8 H Lymphocytes # (Manual) 0.0 L Monocytes # (Manual) 1.3 H Eosinophils # (Manual) Basophils # (Manual) PT INR POC ABG pH ABG pH POC ABG pCO2 POC ABG pO2 ABG pO2 ABG O2 Saturation ABG Base Excess ABG Hemoglobin Oxyhemoglobin Sodium 135 L Potassium Chloride Carbon Dioxide BUN 39 H Creatinine 4.4 H Glucose 147 H POC Glucose 166 H Calcium 8.1 L Phosphorus Magnesium Iron TIBC Ferritin AST ALT < 5 L Alkaline Phosphatase 164 H Troponin T C-Reactive Protein Total Protein 4.7 L Albumin 1.4 L Triglycerides HDL Cholesterol Miscellaneous Test Crossmatch 08/21/17 08/21/17 08/21/17 08:00 12:21 17:02 WBC RBC Hgb Hct MCV MCH RDW Plt Count Lymph % (Auto) [place] % (Auto) [place] # Seg Neutrophils % Seg Neuts % (Manual) Lymphocytes % (Manual) Monocytes % (Manual) Nucleated RBC % Seg Neutrophils # Seg Neutrophils # Man Lymphocytes # (Manual) Monocytes # (Manual) Eosinophils # (Manual) Basophils # (Manual) PT INR POC ABG pH ABG pH POC ABG pCO2 POC ABG pO2 ABG pO2 ABG O2 Saturation ABG Base Excess ABG Hemoglobin Oxyhemoglobin Sodium Potassium Chloride Carbon Dioxide BUN Creatinine Glucose POC Glucose 147 H 135 H Calcium Phosphorus Magnesium Iron TIBC Ferritin AST ALT Alkaline Phosphatase Troponin T C-Reactive Protein Total Protein Albumin Triglycerides HDL Cholesterol Miscellaneous Test Crossmatch See Detail 08/21/17 08/22/17 08/22/17 23:38 03:40 03:40 WBC 42.5 H* RBC 2.88 L Hgb 8.5 L Hct 26.3 L MCV MCH RDW 17.9 H Plt Count Lymph % (Auto) [place] % (Auto) [place] # Seg Neutrophils % Seg Neuts % (Manual) Lymphocytes % (Manual) 5.0 L Monocytes % (Manual) Nucleated RBC % Seg Neutrophils # Seg Neutrophils # Man 19.6 H Lymphocytes # (Manual) Monocytes # (Manual) 2.6 H Eosinophils # (Manual) Basophils # (Manual) PT INR POC ABG pH ABG pH POC ABG pCO2 POC ABG pO2 ABG pO2 ABG O2 Saturation ABG Base Excess ABG Hemoglobin Oxyhemoglobin Sodium Potassium 3.3 L D Chloride Carbon Dioxide BUN 27 H Creatinine 2.9 H Glucose 144 H POC Glucose 251 H Calcium 8.0 L Phosphorus 2.40 L Magnesium Iron TIBC Ferritin AST ALT Alkaline Phosphatase Troponin T C-Reactive Protein Total Protein Albumin Triglycerides HDL Cholesterol Miscellaneous Test Crossmatch 08/22/17 08/22/17 08/22/17 06:37 08:50 11:25 WBC RBC Hgb Hct MCV MCH RDW Plt Count Lymph % (Auto) [place] % (Auto) [place] # Seg Neutrophils % Seg Neuts % (Manual) Lymphocytes % (Manual) Monocytes % (Manual) Nucleated RBC % Seg Neutrophils # Seg Neutrophils # Man Lymphocytes # (Manual) Monocytes # (Manual) Eosinophils # (Manual) Basophils # (Manual) PT INR POC ABG pH ABG pH POC ABG pCO2 POC ABG pO2 ABG pO2 ABG O2 Saturation ABG Base Excess ABG Hemoglobin Oxyhemoglobin Sodium Potassium Chloride Carbon Dioxide BUN Creatinine Glucose POC Glucose 152 H 175 H Calcium Phosphorus Magnesium Iron TIBC Ferritin AST ALT Alkaline Phosphatase Troponin T C-Reactive Protein Total Protein Albumin Triglycerides HDL Cholesterol Miscellaneous Test Flexitest 1 H Crossmatch 08/22/17 08/22/17 08/22/17 16:25 17:56 23:03 WBC RBC Hgb Hct MCV MCH RDW Plt Count Lymph % (Auto) [place] % (Auto) [place] # Seg Neutrophils % Seg Neuts % (Manual) Lymphocytes % (Manual) Monocytes % (Manual) Nucleated RBC % Seg Neutrophils # Seg Neutrophils # Man Lymphocytes # (Manual) Monocytes # (Manual) Eosinophils # (Manual) Basophils # (Manual) PT INR POC ABG pH ABG pH POC ABG pCO2 POC ABG pO2 ABG pO2 ABG O2 Saturation ABG Base Excess ABG Hemoglobin Oxyhemoglobin Sodium Potassium Chloride Carbon Dioxide BUN Creatinine Glucose POC Glucose 232 H 192 H Calcium Phosphorus Magnesium Iron TIBC Ferritin AST ALT Alkaline Phosphatase Troponin T C-Reactive Protein 30.70 H Total Protein Albumin Triglycerides HDL Cholesterol Miscellaneous Test Crossmatch 08/23/17 08/23/17 08/23/17 05:36 08:50 12:14 WBC RBC Hgb Hct MCV MCH RDW Plt Count Lymph % (Auto) [place] % (Auto) [place] # Seg Neutrophils % Seg Neuts % (Manual) Lymphocytes % (Manual) Monocytes % (Manual) Nucleated RBC % Seg Neutrophils # Seg Neutrophils # Man Lymphocytes # (Manual) Monocytes # (Manual) Eosinophils # (Manual) Basophils # (Manual) PT INR POC ABG pH ABG pH POC ABG pCO2 POC ABG pO2 ABG pO2 ABG O2 Saturation ABG Base Excess ABG Hemoglobin Oxyhemoglobin Sodium Potassium Chloride 107.1 H Carbon Dioxide BUN 49 H Creatinine 3.3 H Glucose 172 H POC Glucose 206 H 238 H Calcium Phosphorus Magnesium 2.40 H Iron TIBC Ferritin AST ALT Alkaline Phosphatase Troponin T C-Reactive Protein Total Protein Albumin Triglycerides HDL Cholesterol Miscellaneous Test Crossmatch 08/23/17 08/23/17 08/24/17 17:21 23:13 04:00 WBC 34.2 H RBC 2.86 L Hgb 8.4 L Hct 25.9 L MCV MCH RDW 17.9 H Plt Count Lymph % (Auto) [place] % (Auto) [place] # Seg Neutrophils % Seg Neuts % (Manual) 85.0 H Lymphocytes % (Manual) 0.5 L Monocytes % (Manual) Nucleated RBC % 1.0 H Seg Neutrophils # Seg Neutrophils # Man 29.1 H Lymphocytes # (Manual) 0.2 L Monocytes # (Manual) 2.4 H Eosinophils # (Manual) Basophils # (Manual) PT INR POC ABG pH ABG pH POC ABG pCO2 POC ABG pO2 ABG pO2 ABG O2 Saturation ABG Base Excess ABG Hemoglobin Oxyhemoglobin Sodium Potassium Chloride Carbon Dioxide BUN Creatinine Glucose POC Glucose 226 H 183 H Calcium Phosphorus Magnesium Iron TIBC Ferritin AST ALT Alkaline Phosphatase Troponin T C-Reactive Protein Total Protein Albumin Triglycerides HDL Cholesterol Miscellaneous Test Crossmatch 08/24/17 08/24/17 08/24/17 05:06 09:30 12:04 WBC RBC Hgb Hct MCV MCH RDW Plt Count Lymph % (Auto) [place] % (Auto) [place] # Seg Neutrophils % Seg Neuts % (Manual) Lymphocytes % (Manual) Monocytes % (Manual) Nucleated RBC % Seg Neutrophils # Seg Neutrophils # Man Lymphocytes # (Manual) Monocytes # (Manual) Eosinophils # (Manual) Basophils # (Manual) PT INR POC ABG pH ABG pH POC ABG pCO2 POC ABG pO2 ABG pO2 ABG O2 Saturation ABG Base Excess ABG Hemoglobin Oxyhemoglobin Sodium Potassium Chloride Carbon Dioxide BUN 46 H Creatinine 2.5 H Glucose 176 H POC Glucose 201 H 181 H Calcium Phosphorus Magnesium Iron TIBC Ferritin AST ALT Alkaline Phosphatase Troponin T C-Reactive Protein Total Protein Albumin Triglycerides HDL Cholesterol Miscellaneous Test Crossmatch 08/24/17 08/24/17 08/25/17 18:04 23:05 05:05 WBC RBC Hgb Hct MCV MCH RDW Plt Count Lymph % (Auto) [place] % (Auto) [place] # Seg Neutrophils % Seg Neuts % (Manual) Lymphocytes % (Manual) Monocytes % (Manual) Nucleated RBC % Seg Neutrophils # Seg Neutrophils # Man Lymphocytes # (Manual) Monocytes # (Manual) Eosinophils # (Manual) Basophils # (Manual) PT INR POC ABG pH ABG pH POC ABG pCO2 POC ABG pO2 ABG pO2 ABG O2 Saturation ABG Base Excess ABG Hemoglobin Oxyhemoglobin Sodium Potassium Chloride Carbon Dioxide BUN Creatinine Glucose POC Glucose 189 H 175 H 190 H Calcium Phosphorus Magnesium Iron TIBC Ferritin AST ALT Alkaline Phosphatase Troponin T C-Reactive Protein Total Protein Albumin Triglycerides HDL Cholesterol Miscellaneous Test Crossmatch 08/25/17 08/25/17 08/26/17 07:02 11:53 05:30 WBC 33.5 H RBC 2.47 L Hgb 7.3 L Hct 23.0 L MCV MCH RDW 21.3 H Plt Count Lymph % (Auto) [place] % (Auto) [place] # Seg Neutrophils % Seg Neuts % (Manual) 92.0 H Lymphocytes % (Manual) 1.0 L Monocytes % (Manual) Nucleated RBC % Seg Neutrophils # Seg Neutrophils # Man 30.8 H Lymphocytes # (Manual) 0.3 L Monocytes # (Manual) Eosinophils # (Manual) Basophils # (Manual) PT INR POC ABG pH ABG pH POC ABG pCO2 POC ABG pO2 ABG pO2 ABG O2 Saturation ABG Base Excess ABG Hemoglobin Oxyhemoglobin Sodium Potassium Chloride Carbon Dioxide BUN 32 H Creatinine 5.0 H D Glucose 117 H POC Glucose 191 H Calcium 8.0 L Phosphorus Magnesium Iron TIBC Ferritin AST ALT Alkaline Phosphatase Troponin T C-Reactive Protein Total Protein Albumin Triglycerides HDL Cholesterol Miscellaneous Test Crossmatch 08/26/17 08/26/17 08/26/17 05:30 06:44 13:26 WBC RBC Hgb Hct MCV MCH RDW Plt Count Lymph % (Auto) [place] % (Auto) [place] # Seg Neutrophils % Seg Neuts % (Manual) Lymphocytes % (Manual) Monocytes % (Manual) Nucleated RBC % Seg Neutrophils # Seg Neutrophils # Man Lymphocytes # (Manual) Monocytes # (Manual) Eosinophils # (Manual) Basophils # (Manual) PT INR POC ABG pH ABG pH POC ABG pCO2 POC ABG pO2 ABG pO2 ABG O2 Saturation ABG Base Excess ABG Hemoglobin Oxyhemoglobin Sodium Potassium 5.2 H Chloride Carbon Dioxide BUN 80 H Creatinine 3.4 H Glucose 193 H POC Glucose 232 H 207 H Calcium 8.3 L Phosphorus 6.80 H D Magnesium 2.60 H Iron TIBC Ferritin AST 135 H ALT Alkaline Phosphatase 211 H Troponin T C-Reactive Protein Total Protein 4.8 L Albumin 2.0 L Triglycerides HDL Cholesterol Miscellaneous Test Crossmatch 08/27/17 08/27/17 08/27/17 01:08 06:20 06:20 WBC 35.0 H RBC 2.75 L Hgb 8.4 L Hct 25.1 L MCV MCH RDW 21.8 H Plt Count Lymph % (Auto) [place] % (Auto) [place] # Seg Neutrophils % Seg Neuts % (Manual) Lymphocytes % (Manual) 4.5 L Monocytes % (Manual) Nucleated RBC % Seg Neutrophils # Seg Neutrophils # Man 31.9 H Lymphocytes # (Manual) Monocytes # (Manual) 1.2 H Eosinophils # (Manual) Basophils # (Manual) PT INR POC ABG pH ABG pH POC ABG pCO2 POC ABG pO2 ABG pO2 ABG O2 Saturation ABG Base Excess ABG Hemoglobin Oxyhemoglobin Sodium Potassium Chloride Carbon Dioxide BUN 61 H Creatinine 2.6 H Glucose 184 H POC Glucose 146 H Calcium Phosphorus 4.90 H D Magnesium Iron TIBC Ferritin AST ALT Alkaline Phosphatase Troponin T C-Reactive Protein Total Protein Albumin Triglycerides HDL Cholesterol Miscellaneous Test Crossmatch 08/27/17 08/27/17 08/27/17 07:01 09:17 12:52 WBC RBC Hgb Hct MCV MCH RDW Plt Count Lymph % (Auto) [place] % (Auto) [place] # Seg Neutrophils % Seg Neuts % (Manual) Lymphocytes % (Manual) Monocytes % (Manual) Nucleated RBC % Seg Neutrophils # Seg Neutrophils # Man Lymphocytes # (Manual) Monocytes # (Manual) Eosinophils # (Manual) Basophils # (Manual) PT INR POC ABG pH ABG pH POC ABG pCO2 POC ABG pO2 ABG pO2 ABG O2 Saturation ABG Base Excess ABG Hemoglobin Oxyhemoglobin Sodium Potassium Chloride Carbon Dioxide BUN Creatinine Glucose POC Glucose 165 H 198 H 218 H Calcium Phosphorus Magnesium Iron TIBC Ferritin AST ALT Alkaline Phosphatase Troponin T C-Reactive Protein Total Protein Albumin Triglycerides HDL Cholesterol Miscellaneous Test Crossmatch 08/27/17 08/28/17 08/28/17 17:27 02:13 06:46 WBC RBC Hgb Hct MCV MCH RDW Plt Count Lymph % (Auto) [place] % (Auto) [place] # Seg Neutrophils % Seg Neuts % (Manual) Lymphocytes % (Manual) Monocytes % (Manual) Nucleated RBC % Seg Neutrophils # Seg Neutrophils # Man Lymphocytes # (Manual) Monocytes # (Manual) Eosinophils # (Manual) Basophils # (Manual) PT INR POC ABG pH ABG pH POC ABG pCO2 POC ABG pO2 ABG pO2 ABG O2 Saturation ABG Base Excess ABG Hemoglobin Oxyhemoglobin Sodium Potassium Chloride Carbon Dioxide BUN Creatinine Glucose POC Glucose 151 H 155 H 230 H Calcium Phosphorus Magnesium Iron TIBC Ferritin AST ALT Alkaline Phosphatase Troponin T C-Reactive Protein Total Protein Albumin Triglycerides HDL Cholesterol Miscellaneous Test Crossmatch 08/28/17 08/28/17 08/28/17 06:53 06:53 08:19 WBC 31.1 H RBC 2.26 L Hgb 6.8 L Hct 20.9 L MCV MCH RDW 21.7 H Plt Count Lymph % (Auto) [place] % (Auto) [place] # Seg Neutrophils % Seg Neuts % (Manual) 83.0 H Lymphocytes % (Manual) 4.0 L Monocytes % (Manual) Nucleated RBC % Seg Neutrophils # Seg Neutrophils # Man 25.8 H Lymphocytes # (Manual) Monocytes # (Manual) Eosinophils # (Manual) Basophils # (Manual) PT INR POC ABG pH ABG pH POC ABG pCO2 POC ABG pO2 ABG pO2 ABG O2 Saturation ABG Base Excess ABG Hemoglobin Oxyhemoglobin Sodium Potassium Chloride Carbon Dioxide BUN 81 H Creatinine 3.4 H Glucose 218 H POC Glucose 239 H Calcium Phosphorus 4.90 H Magnesium Iron TIBC Ferritin AST ALT Alkaline Phosphatase Troponin T C-Reactive Protein Total Protein Albumin Triglycerides HDL Cholesterol Miscellaneous Test Crossmatch 08/28/17 08/28/17 08/28/17 11:56 13:05 13:29 WBC RBC Hgb Hct MCV MCH RDW Plt Count Lymph % (Auto) [place] % (Auto) [place] # Seg Neutrophils % Seg Neuts % (Manual) Lymphocytes % (Manual) Monocytes % (Manual) Nucleated RBC % Seg Neutrophils # Seg Neutrophils # Man Lymphocytes # (Manual) Monocytes # (Manual) Eosinophils # (Manual) Basophils # (Manual) PT 16.7 H INR 1.29 H POC ABG pH ABG pH POC ABG pCO2 POC ABG pO2 338 H ABG pO2 ABG O2 Saturation ABG Base Excess ABG Hemoglobin Oxyhemoglobin Sodium Potassium Chloride Carbon Dioxide BUN Creatinine Glucose POC Glucose Calcium Phosphorus Magnesium Iron TIBC Ferritin AST ALT Alkaline Phosphatase Troponin T C-Reactive Protein Total Protein Albumin Triglycerides HDL Cholesterol Miscellaneous Test Crossmatch See Detail 08/28/17 08/28/17 08/29/17 16:22 19:20 04:24 WBC RBC Hgb Hct MCV MCH RDW Plt Count Lymph % (Auto) [place] % (Auto) [place] # Seg Neutrophils % Seg Neuts % (Manual) Lymphocytes % (Manual) Monocytes % (Manual) Nucleated RBC % Seg Neutrophils # Seg Neutrophils # Man Lymphocytes # (Manual) Monocytes # (Manual) Eosinophils # (Manual) Basophils # (Manual) PT INR POC ABG pH 7.469 H ABG pH POC ABG pCO2 POC ABG pO2 240 H ABG pO2 ABG O2 Saturation ABG Base Excess ABG Hemoglobin Oxyhemoglobin Sodium Potassium Chloride Carbon Dioxide BUN Creatinine Glucose POC Glucose 209 H 195 H Calcium Phosphorus Magnesium Iron TIBC Ferritin AST ALT Alkaline Phosphatase Troponin T C-Reactive Protein Total Protein Albumin Triglycerides HDL Cholesterol Miscellaneous Test Crossmatch 08/29/17 08/29/17 08/29/17 04:30 04:30 12:07 WBC 44.9 H* RBC Hgb Hct MCV MCH RDW 23.1 H Plt Count Lymph % (Auto) [place] % (Auto) [place] # Seg Neutrophils % Seg Neuts % (Manual) 38.0 L Lymphocytes % (Manual) 10.0 L Monocytes % (Manual) 10.0 H Nucleated RBC % 6.0 H Seg Neutrophils # Seg Neutrophils # Man 17.1 H Lymphocytes # (Manual) Monocytes # (Manual) 4.5 H Eosinophils # (Manual) Basophils # (Manual) PT INR POC ABG pH ABG pH POC ABG pCO2 POC ABG pO2 ABG pO2 ABG O2 Saturation ABG Base Excess ABG Hemoglobin Oxyhemoglobin Sodium Potassium Chloride Carbon Dioxide BUN 61 H Creatinine 2.4 H Glucose 226 H POC Glucose 200 H Calcium Phosphorus Magnesium Iron TIBC Ferritin AST ALT Alkaline Phosphatase Troponin T C-Reactive Protein Total Protein Albumin Triglycerides HDL Cholesterol Miscellaneous Test Crossmatch 08/29/17 08/29/17 08/29/17 12:30 12:30 17:23 WBC RBC Hgb Hct MCV MCH RDW Plt Count Lymph % (Auto) [place] % (Auto) [place] # Seg Neutrophils % Seg Neuts % (Manual) Lymphocytes % (Manual) Monocytes % (Manual) Nucleated RBC % Seg Neutrophils # Seg Neutrophils # Man Lymphocytes # (Manual) Monocytes # (Manual) Eosinophils # (Manual) Basophils # (Manual) PT INR POC ABG pH ABG pH POC ABG pCO2 POC ABG pO2 ABG pO2 ABG O2 Saturation ABG Base Excess ABG Hemoglobin Oxyhemoglobin Sodium Potassium Chloride Carbon Dioxide BUN Creatinine Glucose POC Glucose 270 H Calcium Phosphorus Magnesium Iron TIBC Ferritin AST ALT Alkaline Phosphatase Troponin T C-Reactive Protein 19.10 H Total Protein Albumin Triglycerides HDL Cholesterol Miscellaneous Test Flexitest 1 H Crossmatch 08/30/17 08/30/17 08/30/17 00:10 01:30 03:31 WBC RBC Hgb Hct MCV MCH RDW Plt Count Lymph % (Auto) [place] % (Auto) [place] # Seg Neutrophils % Seg Neuts % (Manual) Lymphocytes % (Manual) Monocytes % (Manual) Nucleated RBC % Seg Neutrophils # Seg Neutrophils # Man Lymphocytes # (Manual) Monocytes # (Manual) Eosinophils # (Manual) Basophils # (Manual) PT INR POC ABG pH 7.168 L 7.335 L ABG pH POC ABG pCO2 72.8 H POC ABG pO2 257 H 117 H ABG pO2 ABG O2 Saturation ABG Base Excess ABG Hemoglobin Oxyhemoglobin Sodium Potassium Chloride Carbon Dioxide BUN Creatinine Glucose POC Glucose 245 H Calcium Phosphorus Magnesium Iron TIBC Ferritin AST ALT Alkaline Phosphatase Troponin T C-Reactive Protein Total Protein Albumin Triglycerides HDL Cholesterol Miscellaneous Test Crossmatch 08/30/17 08/30/17 08/30/17 05:20 05:20 05:20 WBC 40.9 H* RBC 3.64 L Hgb Hct MCV MCH RDW 24.3 H Plt Count Lymph % (Auto) [place] % (Auto) [place] # Seg Neutrophils % Seg Neuts % (Manual) 80.0 H Lymphocytes % (Manual) 3.0 L Monocytes % (Manual) Nucleated RBC % 1.0 H Seg Neutrophils # Seg Neutrophils # Man 32.7 H Lymphocytes # (Manual) Monocytes # (Manual) Eosinophils # (Manual) Basophils # (Manual) PT INR POC ABG pH ABG pH POC ABG pCO2 POC ABG pO2 ABG pO2 ABG O2 Saturation ABG Base Excess ABG Hemoglobin Oxyhemoglobin Sodium Potassium Chloride Carbon Dioxide BUN 83 H Creatinine 2.9 H Glucose 334 H POC Glucose 309 H Calcium Phosphorus Magnesium Iron TIBC Ferritin AST ALT Alkaline Phosphatase Troponin T C-Reactive Protein Total Protein Albumin Triglycerides HDL Cholesterol Miscellaneous Test Crossmatch 08/30/17 08/30/17 08/31/17 12:18 17:36 00:17 WBC RBC Hgb Hct MCV MCH RDW Plt Count Lymph % (Auto) [place] % (Auto) [place] # Seg Neutrophils % Seg Neuts % (Manual) Lymphocytes % (Manual) Monocytes % (Manual) Nucleated RBC % Seg Neutrophils # Seg Neutrophils # Man Lymphocytes # (Manual) Monocytes # (Manual) Eosinophils # (Manual) Basophils # (Manual) PT INR POC ABG pH ABG pH POC ABG pCO2 POC ABG pO2 ABG pO2 ABG O2 Saturation ABG Base Excess ABG Hemoglobin Oxyhemoglobin Sodium Potassium Chloride Carbon Dioxide BUN Creatinine Glucose POC Glucose 273 H 293 H 360 H Calcium Phosphorus Magnesium Iron TIBC Ferritin AST ALT Alkaline Phosphatase Troponin T C-Reactive Protein Total Protein Albumin Triglycerides HDL Cholesterol Miscellaneous Test Crossmatch 08/31/17 08/31/17 08/31/17 05:30 05:30 05:32 WBC 29.9 H RBC 2.89 L Hgb 8.2 L Hct 24.7 L D MCV MCH RDW 24.4 H Plt Count Lymph % (Auto) [place] % (Auto) [place] # Seg Neutrophils % Seg Neuts % (Manual) Lymphocytes % (Manual) 2.0 L Monocytes % (Manual) Nucleated RBC % 2.0 H Seg Neutrophils # Seg Neutrophils # Man 18.5 H Lymphocytes # (Manual) 0.6 L Monocytes # (Manual) 0.9 H Eosinophils # (Manual) Basophils # (Manual) PT INR POC ABG pH ABG pH POC ABG pCO2 POC ABG pO2 ABG pO2 ABG O2 Saturation ABG Base Excess ABG Hemoglobin Oxyhemoglobin Sodium Potassium Chloride Carbon Dioxide BUN 62 H Creatinine 2.2 H Glucose 245 H POC Glucose 257 H Calcium Phosphorus 2.10 L D Magnesium 1.60 L Iron TIBC Ferritin AST ALT Alkaline Phosphatase Troponin T C-Reactive Protein Total Protein Albumin Triglycerides HDL Cholesterol Miscellaneous Test Crossmatch 08/31/17 08/31/17 08/31/17 11:56 12:05 18:14 WBC 32.5 H RBC 3.19 L Hgb 8.8 L Hct 27.9 L MCV MCH RDW 24.9 H Plt Count Lymph % (Auto) [place] % (Auto) [place] # Seg Neutrophils % Seg Neuts % (Manual) Lymphocytes % (Manual) 1.0 L Monocytes % (Manual) 12.0 H Nucleated RBC % 1.0 H Seg Neutrophils # Seg Neutrophils # Man 13.3 H Lymphocytes # (Manual) 0.3 L Monocytes # (Manual) 3.9 H Eosinophils # (Manual) Basophils # (Manual) PT INR POC ABG pH ABG pH POC ABG pCO2 POC ABG pO2 ABG pO2 ABG O2 Saturation ABG Base Excess ABG Hemoglobin Oxyhemoglobin Sodium Potassium Chloride Carbon Dioxide BUN Creatinine Glucose POC Glucose 245 H Calcium Phosphorus Magnesium Iron TIBC Ferritin AST ALT Alkaline Phosphatase Troponin T C-Reactive Protein Total Protein Albumin Triglycerides HDL Cholesterol Miscellaneous Test Crossmatch See Detail 08/31/17 08/31/17 08/31/17 18:14 18:15 18:22 WBC RBC Hgb Hct MCV MCH RDW Plt Count Lymph % (Auto) [place] % (Auto) [place] # Seg Neutrophils % Seg Neuts % (Manual) Lymphocytes % (Manual) Monocytes % (Manual) Nucleated RBC % Seg Neutrophils # Seg Neutrophils # Man Lymphocytes # (Manual) Monocytes # (Manual) Eosinophils # (Manual) Basophils # (Manual) PT 15.1 H INR POC ABG pH ABG pH POC ABG pCO2 POC ABG pO2 ABG pO2 ABG O2 Saturation ABG Base Excess ABG Hemoglobin Oxyhemoglobin Sodium 136 L Potassium Chloride Carbon Dioxide 21 L BUN 69 H Creatinine 2.3 H Glucose 227 H POC Glucose 240 H Calcium Phosphorus 2.40 L Magnesium 1.50 L Iron TIBC Ferritin AST 143 H ALT 114 H Alkaline Phosphatase 267 H Troponin T C-Reactive Protein Total Protein 4.1 L Albumin 1.8 L Triglycerides HDL Cholesterol Miscellaneous Test Crossmatch 08/31/17 09/01/17 09/01/17 23:53 05:00 05:00 WBC 33.9 H RBC 2.85 L Hgb 7.8 L Hct 24.8 L MCV MCH 27 L RDW 23.9 H Plt Count Lymph % (Auto) [place] % (Auto) [place] # Seg Neutrophils % Seg Neuts % (Manual) Lymphocytes % (Manual) 5.0 L Monocytes % (Manual) Nucleated RBC % Seg Neutrophils # Seg Neutrophils # Man 23.1 H Lymphocytes # (Manual) Monocytes # (Manual) Eosinophils # (Manual) Basophils # (Manual) PT INR POC ABG pH ABG pH POC ABG pCO2 POC ABG pO2 ABG pO2 ABG O2 Saturation ABG Base Excess ABG Hemoglobin Oxyhemoglobin Sodium Potassium Chloride Carbon Dioxide BUN 51 H Creatinine 1.8 H Glucose 195 H POC Glucose 301 H Calcium Phosphorus 1.70 L D Magnesium 1.60 L Iron TIBC Ferritin AST 80 H ALT 82 H Alkaline Phosphatase 243 H Troponin T C-Reactive Protein Total Protein 4.2 L Albumin 1.7 L Triglycerides HDL Cholesterol Miscellaneous Test Crossmatch 09/01/17 09/01/17 09/01/17 05:20 05:47 11:37 WBC RBC Hgb Hct MCV MCH RDW Plt Count Lymph % (Auto) [place] % (Auto) [place] # Seg Neutrophils % Seg Neuts % (Manual) Lymphocytes % (Manual) Monocytes % (Manual) Nucleated RBC % Seg Neutrophils # Seg Neutrophils # Man Lymphocytes # (Manual) Monocytes # (Manual) Eosinophils # (Manual) Basophils # (Manual) PT INR POC ABG pH ABG pH 7.348 L POC ABG pCO2 POC ABG pO2 ABG pO2 70.2 L ABG O2 Saturation ABG Base Excess ABG Hemoglobin 7.5 L Oxyhemoglobin Sodium Potassium Chloride Carbon Dioxide BUN Creatinine Glucose POC Glucose 230 H 254 H Calcium Phosphorus Magnesium Iron TIBC Ferritin AST ALT Alkaline Phosphatase Troponin T C-Reactive Protein Total Protein Albumin Triglycerides HDL Cholesterol Miscellaneous Test Crossmatch 09/01/17 09/01/17 09/02/17 17:39 23:14 04:55 WBC RBC Hgb Hct MCV MCH RDW Plt Count Lymph % (Auto) [place] % (Auto) [place] # Seg Neutrophils % Seg Neuts % (Manual) Lymphocytes % (Manual) Monocytes % (Manual) Nucleated RBC % Seg Neutrophils # Seg Neutrophils # Man Lymphocytes # (Manual) Monocytes # (Manual) Eosinophils # (Manual) Basophils # (Manual) PT INR POC ABG pH ABG pH POC ABG pCO2 POC ABG pO2 ABG pO2 124.8 H ABG O2 Saturation ABG Base Excess -2.9 L ABG Hemoglobin 5.8 L Oxyhemoglobin Sodium Potassium Chloride Carbon Dioxide BUN Creatinine Glucose POC Glucose 297 H 291 H Calcium Phosphorus Magnesium Iron TIBC Ferritin AST ALT Alkaline Phosphatase Troponin T C-Reactive Protein Total Protein Albumin Triglycerides HDL Cholesterol Miscellaneous Test Crossmatch 09/02/17 09/02/17 09/02/17 05:31 06:10 11:58 WBC RBC Hgb Hct MCV MCH RDW Plt Count Lymph % (Auto) [place] % (Auto) [place] # Seg Neutrophils % Seg Neuts % (Manual) Lymphocytes % (Manual) Monocytes % (Manual) Nucleated RBC % Seg Neutrophils # Seg Neutrophils # Man Lymphocytes # (Manual) Monocytes # (Manual) Eosinophils # (Manual) Basophils # (Manual) PT INR POC ABG pH ABG pH POC ABG pCO2 POC ABG pO2 ABG pO2 ABG O2 Saturation ABG Base Excess ABG Hemoglobin Oxyhemoglobin Sodium Potassium Chloride Carbon Dioxide BUN 68 H Creatinine 2.2 H Glucose 369 H POC Glucose 245 H 333 H Calcium 8.2 L Phosphorus Magnesium Iron TIBC Ferritin AST ALT Alkaline Phosphatase Troponin T C-Reactive Protein Total Protein Albumin Triglycerides HDL Cholesterol Miscellaneous Test Crossmatch 09/02/17 09/02/17 09/03/17 15:37 23:50 04:00 WBC RBC Hgb Hct MCV MCH RDW Plt Count Lymph % (Auto) [place] % (Auto) [place] # Seg Neutrophils % Seg Neuts % (Manual) Lymphocytes % (Manual) Monocytes % (Manual) Nucleated RBC % Seg Neutrophils # Seg Neutrophils # Man Lymphocytes # (Manual) Monocytes # (Manual) Eosinophils # (Manual) Basophils # (Manual) PT INR POC ABG pH ABG pH POC ABG pCO2 POC ABG pO2 ABG pO2 ABG O2 Saturation ABG Base Excess ABG Hemoglobin Oxyhemoglobin Sodium Potassium Chloride Carbon Dioxide BUN 59 H Creatinine 1.9 H Glucose 231 H POC Glucose 314 H 240 H Calcium 8.0 L Phosphorus Magnesium Iron TIBC Ferritin AST ALT Alkaline Phosphatase 265 H Troponin T C-Reactive Protein Total Protein 4.4 L Albumin 1.7 L Triglycerides 180 H HDL Cholesterol Miscellaneous Test Crossmatch 09/03/17 09/03/17 09/03/17 05:00 05:32 11:52 WBC 41.5 H* RBC 2.46 L Hgb 6.9 L Hct 21.3 L MCV MCH RDW 24.9 H Plt Count Lymph % (Auto) [place] % (Auto) [place] # Seg Neutrophils % Seg Neuts % (Manual) Lymphocytes % (Manual) 3.0 L Monocytes % (Manual) 9.5 H Nucleated RBC % 1.5 H Seg Neutrophils # Seg Neutrophils # Man 28.8 H Lymphocytes # (Manual) Monocytes # (Manual) 3.9 H Eosinophils # (Manual) Basophils # (Manual) PT INR POC ABG pH ABG pH POC ABG pCO2 POC ABG pO2 ABG pO2 ABG O2 Saturation ABG Base Excess ABG Hemoglobin Oxyhemoglobin Sodium Potassium Chloride Carbon Dioxide BUN Creatinine Glucose POC Glucose 188 H 285 H Calcium Phosphorus Magnesium Iron TIBC Ferritin AST ALT Alkaline Phosphatase Troponin T C-Reactive Protein Total Protein Albumin Triglycerides HDL Cholesterol Miscellaneous Test Crossmatch 09/03/17 09/03/17 09/03/17 16:55 17:44 23:56 WBC RBC Hgb Hct MCV MCH RDW Plt Count Lymph % (Auto) [place] % (Auto) [place] # Seg Neutrophils % Seg Neuts % (Manual) Lymphocytes % (Manual) Monocytes % (Manual) Nucleated RBC % Seg Neutrophils # Seg Neutrophils # Man Lymphocytes # (Manual) Monocytes # (Manual) Eosinophils # (Manual) Basophils # (Manual) PT INR POC ABG pH ABG pH POC ABG pCO2 POC ABG pO2 ABG pO2 ABG O2 Saturation ABG Base Excess ABG Hemoglobin Oxyhemoglobin Sodium Potassium Chloride Carbon Dioxide BUN Creatinine Glucose POC Glucose 217 H 193 H Calcium Phosphorus Magnesium Iron TIBC Ferritin AST ALT Alkaline Phosphatase Troponin T C-Reactive Protein Total Protein Albumin Triglycerides HDL Cholesterol Miscellaneous Test Crossmatch See Detail 09/03/17 09/04/17 09/04/17 Unknown 03:47 04:32 WBC 44.7 H* RBC 3.12 L Hgb 8.7 L Hct 26.7 L MCV MCH RDW 23.5 H Plt Count Lymph % (Auto) [place] % (Auto) [place] # Seg Neutrophils % Seg Neuts % (Manual) Lymphocytes % (Manual) 4.0 L Monocytes % (Manual) Nucleated RBC % 2.0 H Seg Neutrophils # Seg Neutrophils # Man 30.8 H Lymphocytes # (Manual) Monocytes # (Manual) 2.2 H Eosinophils # (Manual) Basophils # (Manual) PT INR POC ABG pH ABG pH POC ABG pCO2 POC ABG pO2 ABG pO2 133.4 H 135.0 H ABG O2 Saturation ABG Base Excess -2.5 L ABG Hemoglobin 5.8 L 7.9 L Oxyhemoglobin Sodium Potassium Chloride Carbon Dioxide BUN Creatinine Glucose POC Glucose Calcium Phosphorus Magnesium Iron TIBC Ferritin AST ALT Alkaline Phosphatase Troponin T C-Reactive Protein Total Protein Albumin Triglycerides HDL Cholesterol Miscellaneous Test Crossmatch 09/04/17 09/04/17 09/04/17 04:32 05:48 10:43 WBC RBC Hgb Hct MCV MCH RDW Plt Count Lymph % (Auto) [place] % (Auto) [place] # Seg Neutrophils % Seg Neuts % (Manual) Lymphocytes % (Manual) Monocytes % (Manual) Nucleated RBC % Seg Neutrophils # Seg Neutrophils # Man Lymphocytes # (Manual) Monocytes # (Manual) Eosinophils # (Manual) Basophils # (Manual) PT INR POC ABG pH ABG pH POC ABG pCO2 POC ABG pO2 ABG pO2 ABG O2 Saturation ABG Base Excess ABG Hemoglobin Oxyhemoglobin Sodium 136 L Potassium 5.2 H D Chloride 94.2 L Carbon Dioxide BUN 71 H Creatinine 2.3 H Glucose 235 H POC Glucose 329 H Calcium 8.3 L Phosphorus Magnesium Iron TIBC Ferritin AST ALT Alkaline Phosphatase Troponin T C-Reactive Protein Total Protein Albumin Triglycerides HDL Cholesterol Miscellaneous Test Flexitest 1 H Crossmatch 09/04/17 09/04/17 09/05/17 12:38 17:30 00:15 WBC RBC Hgb Hct MCV MCH RDW Plt Count Lymph % (Auto) [place] % (Auto) [place] # Seg Neutrophils % Seg Neuts % (Manual) Lymphocytes % (Manual) Monocytes % (Manual) Nucleated RBC % Seg Neutrophils # Seg Neutrophils # Man Lymphocytes # (Manual) Monocytes # (Manual) Eosinophils # (Manual) Basophils # (Manual) PT INR POC ABG pH ABG pH POC ABG pCO2 POC ABG pO2 ABG pO2 ABG O2 Saturation ABG Base Excess ABG Hemoglobin Oxyhemoglobin Sodium Potassium Chloride Carbon Dioxide BUN Creatinine Glucose POC Glucose 444 H 331 H 362 H Calcium Phosphorus Magnesium Iron TIBC Ferritin AST ALT Alkaline Phosphatase Troponin T C-Reactive Protein Total Protein Albumin Triglycerides HDL Cholesterol Miscellaneous Test Crossmatch 09/05/17 09/05/17 09/05/17 03:55 03:55 12:12 WBC 35.3 H RBC 2.87 L Hgb 8.1 L Hct 24.6 L MCV MCH RDW 23.3 H Plt Count Lymph % (Auto) [place] % (Auto) [place] # Seg Neutrophils % Seg Neuts % (Manual) 89.5 H Lymphocytes % (Manual) 3.0 L Monocytes % (Manual) Nucleated RBC % 2.5 H Seg Neutrophils # Seg Neutrophils # Man 31.6 H Lymphocytes # (Manual) 1.1 L Monocytes # (Manual) Eosinophils # (Manual) Basophils # (Manual) PT INR POC ABG pH ABG pH POC ABG pCO2 POC ABG pO2 ABG pO2 ABG O2 Saturation ABG Base Excess ABG Hemoglobin Oxyhemoglobin Sodium 136 L Potassium Chloride 94.7 L Carbon Dioxide BUN 55 H Creatinine 1.8 H Glucose 193 H POC Glucose 344 H Calcium 8.1 L Phosphorus Magnesium Iron TIBC Ferritin AST ALT Alkaline Phosphatase Troponin T C-Reactive Protein Total Protein Albumin Triglycerides HDL Cholesterol Miscellaneous Test Crossmatch 09/05/17 09/05/17 09/05/17 14:32 15:32 16:41 WBC RBC Hgb Hct MCV MCH RDW Plt Count Lymph % (Auto) [place] % (Auto) [place] # Seg Neutrophils % Seg Neuts % (Manual) Lymphocytes % (Manual) Monocytes % (Manual) Nucleated RBC % Seg Neutrophils # Seg Neutrophils # Man Lymphocytes # (Manual) Monocytes # (Manual) Eosinophils # (Manual) Basophils # (Manual) PT INR POC ABG pH ABG pH POC ABG pCO2 POC ABG pO2 ABG pO2 ABG O2 Saturation ABG Base Excess ABG Hemoglobin Oxyhemoglobin Sodium Potassium Chloride Carbon Dioxide BUN Creatinine Glucose POC Glucose 265 H 145 H 188 H Calcium Phosphorus Magnesium Iron TIBC Ferritin AST ALT Alkaline Phosphatase Troponin T C-Reactive Protein Total Protein Albumin Triglycerides HDL Cholesterol Miscellaneous Test Crossmatch 09/05/17 09/05/17 09/05/17 17:28 18:38 20:10 WBC RBC Hgb Hct MCV MCH RDW Plt Count Lymph % (Auto) [place] % (Auto) [place] # Seg Neutrophils % Seg Neuts % (Manual) Lymphocytes % (Manual) Monocytes % (Manual) Nucleated RBC % Seg Neutrophils # Seg Neutrophils # Man Lymphocytes # (Manual) Monocytes # (Manual) Eosinophils # (Manual) Basophils # (Manual) PT INR POC ABG pH ABG pH POC ABG pCO2 POC ABG pO2 ABG pO2 ABG O2 Saturation ABG Base Excess ABG Hemoglobin Oxyhemoglobin Sodium Potassium Chloride Carbon Dioxide BUN Creatinine Glucose POC Glucose 246 H 271 H 165 H Calcium Phosphorus Magnesium Iron TIBC Ferritin AST ALT Alkaline Phosphatase Troponin T C-Reactive Protein Total Protein Albumin Triglycerides HDL Cholesterol Miscellaneous Test Crossmatch 09/05/17 09/05/17 09/06/17 21:06 23:07 00:10 WBC RBC Hgb Hct MCV MCH RDW Plt Count Lymph % (Auto) [place] % (Auto) [place] # Seg Neutrophils % Seg Neuts % (Manual) Lymphocytes % (Manual) Monocytes % (Manual) Nucleated RBC % Seg Neutrophils # Seg Neutrophils # Man Lymphocytes # (Manual) Monocytes # (Manual) Eosinophils # (Manual) Basophils # (Manual) PT INR POC ABG pH ABG pH POC ABG pCO2 POC ABG pO2 ABG pO2 ABG O2 Saturation ABG Base Excess ABG Hemoglobin Oxyhemoglobin Sodium Potassium Chloride Carbon Dioxide BUN Creatinine Glucose POC Glucose 134 H 135 H 147 H Calcium Phosphorus Magnesium Iron TIBC Ferritin AST ALT Alkaline Phosphatase Troponin T C-Reactive Protein Total Protein Albumin Triglycerides HDL Cholesterol Miscellaneous Test Crossmatch 09/06/17 09/06/17 09/06/17 01:08 02:01 03:08 WBC RBC Hgb Hct MCV MCH RDW Plt Count Lymph % (Auto) [place] % (Auto) [place] # Seg Neutrophils % Seg Neuts % (Manual) Lymphocytes % (Manual) Monocytes % (Manual) Nucleated RBC % Seg Neutrophils # Seg Neutrophils # Man Lymphocytes # (Manual) Monocytes # (Manual) Eosinophils # (Manual) Basophils # (Manual) PT INR POC ABG pH ABG pH POC ABG pCO2 POC ABG pO2 ABG pO2 ABG O2 Saturation ABG Base Excess ABG Hemoglobin Oxyhemoglobin Sodium Potassium Chloride Carbon Dioxide BUN Creatinine Glucose POC Glucose 133 H 146 H 135 H Calcium Phosphorus Magnesium Iron TIBC Ferritin AST ALT Alkaline Phosphatase Troponin T C-Reactive Protein Total Protein Albumin Triglycerides HDL Cholesterol Miscellaneous Test Crossmatch 09/06/17 09/06/17 09/06/17 05:30 05:30 05:30 WBC 38.6 H RBC 2.95 L Hgb 8.3 L Hct 25.3 L MCV MCH RDW 22.2 H Plt Count Lymph % (Auto) [place] % (Auto) [place] # Seg Neutrophils % Seg Neuts % (Manual) Lymphocytes % (Manual) 2.0 L Monocytes % (Manual) Nucleated RBC % 5.0 H Seg Neutrophils # Seg Neutrophils # Man 25.9 H Lymphocytes # (Manual) 0.8 L Monocytes # (Manual) 1.9 H Eosinophils # (Manual) Basophils # (Manual) PT INR POC ABG pH ABG pH POC ABG pCO2 POC ABG pO2 ABG pO2 ABG O2 Saturation ABG Base Excess ABG Hemoglobin Oxyhemoglobin Sodium 135 L Potassium Chloride 93.5 L Carbon Dioxide BUN 82 H Creatinine 2.3 H Glucose 148 H POC Glucose Calcium Phosphorus Magnesium Iron TIBC Ferritin AST ALT Alkaline Phosphatase Troponin T C-Reactive Protein 2.80 H Total Protein Albumin Triglycerides HDL Cholesterol Miscellaneous Test Crossmatch 09/06/17 09/06/17 09/06/17 05:48 08:04 09:06 WBC RBC Hgb Hct MCV MCH RDW Plt Count Lymph % (Auto) [place] % (Auto) [place] # Seg Neutrophils % Seg Neuts % (Manual) Lymphocytes % (Manual) Monocytes % (Manual) Nucleated RBC % Seg Neutrophils # Seg Neutrophils # Man Lymphocytes # (Manual) Monocytes # (Manual) Eosinophils # (Manual) Basophils # (Manual) PT INR POC ABG pH ABG pH POC ABG pCO2 POC ABG pO2 ABG pO2 ABG O2 Saturation ABG Base Excess ABG Hemoglobin Oxyhemoglobin Sodium Potassium Chloride Carbon Dioxide BUN Creatinine Glucose POC Glucose 152 H 164 H 172 H Calcium Phosphorus Magnesium Iron TIBC Ferritin AST ALT Alkaline Phosphatase Troponin T C-Reactive Protein Total Protein Albumin Triglycerides HDL Cholesterol Miscellaneous Test Crossmatch 09/06/17 09/06/17 09/06/17 09:57 10:19 10:57 WBC RBC Hgb Hct MCV MCH RDW Plt Count Lymph % (Auto) [place] % (Auto) [place] # Seg Neutrophils % Seg Neuts % (Manual) Lymphocytes % (Manual) Monocytes % (Manual) Nucleated RBC % Seg Neutrophils # Seg Neutrophils # Man Lymphocytes # (Manual) Monocytes # (Manual) Eosinophils # (Manual) Basophils # (Manual) PT INR POC ABG pH ABG pH POC ABG pCO2 POC ABG pO2 ABG pO2 ABG O2 Saturation ABG Base Excess ABG Hemoglobin Oxyhemoglobin Sodium Potassium Chloride Carbon Dioxide BUN Creatinine Glucose POC Glucose 186 H 162 H Calcium Phosphorus Magnesium Iron TIBC Ferritin AST ALT Alkaline Phosphatase Troponin T C-Reactive Protein Total Protein Albumin Triglycerides HDL Cholesterol Miscellaneous Test Flexitest 1 H Crossmatch 09/06/17 09/06/17 09/06/17 13:12 13:40 17:36 WBC RBC Hgb 8.9 L Hct 28.5 L MCV MCH RDW Plt Count Lymph % (Auto) [place] % (Auto) [place] # Seg Neutrophils % Seg Neuts % (Manual) Lymphocytes % (Manual) Monocytes % (Manual) Nucleated RBC % Seg Neutrophils # Seg Neutrophils # Man Lymphocytes # (Manual) Monocytes # (Manual) Eosinophils # (Manual) Basophils # (Manual) PT INR POC ABG pH ABG pH POC ABG pCO2 POC ABG pO2 ABG pO2 ABG O2 Saturation ABG Base Excess ABG Hemoglobin Oxyhemoglobin Sodium Potassium Chloride Carbon Dioxide BUN Creatinine Glucose POC Glucose 166 H 161 H Calcium Phosphorus Magnesium Iron TIBC Ferritin AST ALT Alkaline Phosphatase Troponin T C-Reactive Protein Total Protein Albumin Triglycerides HDL Cholesterol Miscellaneous Test Crossmatch 09/07/17 09/07/17 09/07/17 00:13 03:50 03:50 WBC 47.0 H* RBC 2.81 L Hgb 8.1 L Hct 24.1 L MCV MCH RDW 22.5 H Plt Count Lymph % (Auto) [place] % (Auto) [place] # Seg Neutrophils % Seg Neuts % (Manual) Lymphocytes % (Manual) 9.0 L Monocytes % (Manual) Nucleated RBC % 6.0 H Seg Neutrophils # Seg Neutrophils # Man 27.3 H Lymphocytes # (Manual) Monocytes # (Manual) 0.9 H Eosinophils # (Manual) 1.9 H Basophils # (Manual) PT INR POC ABG pH ABG pH POC ABG pCO2 POC ABG pO2 ABG pO2 ABG O2 Saturation ABG Base Excess ABG Hemoglobin Oxyhemoglobin Sodium 136 L Potassium Chloride 96.3 L Carbon Dioxide BUN 61 H Creatinine 1.7 H Glucose 132 H POC Glucose 183 H Calcium 7.8 L Phosphorus Magnesium Iron TIBC Ferritin AST ALT Alkaline Phosphatase Troponin T C-Reactive Protein Total Protein Albumin Triglycerides HDL Cholesterol Miscellaneous Test Crossmatch 09/07/17 09/07/17 09/07/17 05:12 05:23 11:48 WBC RBC Hgb Hct MCV MCH RDW Plt Count Lymph % (Auto) [place] % (Auto) [place] # Seg Neutrophils % Seg Neuts % (Manual) Lymphocytes % (Manual) Monocytes % (Manual) Nucleated RBC % Seg Neutrophils # Seg Neutrophils # Man Lymphocytes # (Manual) Monocytes # (Manual) Eosinophils # (Manual) Basophils # (Manual) PT INR POC ABG pH ABG pH POC ABG pCO2 POC ABG pO2 ABG pO2 ABG O2 Saturation ABG Base Excess ABG Hemoglobin 7.7 L Oxyhemoglobin 94.8 L Sodium Potassium Chloride Carbon Dioxide BUN Creatinine Glucose POC Glucose 162 H 200 H Calcium Phosphorus Magnesium Iron TIBC Ferritin AST ALT Alkaline Phosphatase Troponin T C-Reactive Protein Total Protein Albumin Triglycerides HDL Cholesterol Miscellaneous Test Crossmatch 09/07/17 09/07/17 09/08/17 17:07 18:21 00:06 WBC RBC Hgb Hct MCV MCH RDW Plt Count Lymph % (Auto) [place] % (Auto) [place] # Seg Neutrophils % Seg Neuts % (Manual) Lymphocytes % (Manual) Monocytes % (Manual) Nucleated RBC % Seg Neutrophils # Seg Neutrophils # Man Lymphocytes # (Manual) Monocytes # (Manual) Eosinophils # (Manual) Basophils # (Manual) PT INR POC ABG pH ABG pH POC ABG pCO2 POC ABG pO2 ABG pO2 ABG O2 Saturation ABG Base Excess ABG Hemoglobin Oxyhemoglobin Sodium Potassium Chloride Carbon Dioxide BUN Creatinine Glucose POC Glucose 181 H 168 H Calcium Phosphorus Magnesium Iron TIBC Ferritin AST ALT Alkaline Phosphatase Troponin T C-Reactive Protein Total Protein Albumin Triglycerides HDL Cholesterol Miscellaneous Test Crossmatch See Detail 09/08/17 09/08/17 09/08/17 04:05 04:05 04:41 WBC 49.7 H* RBC 2.58 L Hgb 7.3 L Hct 22.7 L MCV MCH RDW 22.5 H Plt Count Lymph % (Auto) [place] % (Auto) [place] # Seg Neutrophils % Seg Neuts % (Manual) 90.5 H Lymphocytes % (Manual) 1.5 L Monocytes % (Manual) Nucleated RBC % Seg Neutrophils # Seg Neutrophils # Man 45.0 H Lymphocytes # (Manual) 0.7 L Monocytes # (Manual) 1.7 H Eosinophils # (Manual) Basophils # (Manual) PT INR POC ABG pH ABG pH POC ABG pCO2 POC ABG pO2 ABG pO2 ABG O2 Saturation ABG Base Excess ABG Hemoglobin Oxyhemoglobin Sodium 132 L Potassium Chloride 92.1 L Carbon Dioxide BUN 82 H Creatinine 2.2 H Glucose 162 H POC Glucose 235 H Calcium 8.3 L Phosphorus 5.20 H D Magnesium Iron TIBC Ferritin AST ALT Alkaline Phosphatase 199 H Troponin T C-Reactive Protein Total Protein 4.5 L Albumin 1.7 L Triglycerides HDL Cholesterol Miscellaneous Test Crossmatch 09/08/17 09/08/17 09/08/17 09:21 11:52 17:38 WBC RBC Hgb Hct MCV MCH RDW Plt Count Lymph % (Auto) [place] % (Auto) [place] # Seg Neutrophils % Seg Neuts % (Manual) Lymphocytes % (Manual) Monocytes % (Manual) Nucleated RBC % Seg Neutrophils # Seg Neutrophils # Man Lymphocytes # (Manual) Monocytes # (Manual) Eosinophils # (Manual) Basophils # (Manual) PT INR POC ABG pH ABG pH POC ABG pCO2 POC ABG pO2 ABG pO2 218.5 H ABG O2 Saturation 99.3 H ABG Base Excess -3.5 L ABG Hemoglobin 7.7 L Oxyhemoglobin Sodium Potassium Chloride Carbon Dioxide BUN Creatinine Glucose POC Glucose 220 H 194 H Calcium Phosphorus Magnesium Iron TIBC Ferritin AST ALT Alkaline Phosphatase Troponin T C-Reactive Protein Total Protein Albumin Triglycerides HDL Cholesterol Miscellaneous Test Crossmatch 09/09/17 09/09/17 09/09/17 00:24 03:37 03:37 WBC 33.5 H RBC 2.36 L Hgb 6.7 L Hct 20.9 L MCV MCH RDW 22.7 H Plt Count Lymph % (Auto) [place] % (Auto) [place] # Seg Neutrophils % Seg Neuts % (Manual) Lymphocytes % (Manual) Monocytes % (Manual) Nucleated RBC % Seg Neutrophils # Seg Neutrophils # Man Lymphocytes # (Manual) Monocytes # (Manual) Eosinophils # (Manual) Basophils # (Manual) PT INR POC ABG pH ABG pH POC ABG pCO2 POC ABG pO2 ABG pO2 ABG O2 Saturation ABG Base Excess ABG Hemoglobin Oxyhemoglobin Sodium 132 L Potassium Chloride 91.6 L Carbon Dioxide 21 L BUN 101 H Creatinine 2.6 H Glucose 156 H POC Glucose 182 H Calcium 8.3 L Phosphorus 5.90 H Magnesium 2.60 H Iron TIBC Ferritin AST ALT Alkaline Phosphatase Troponin T C-Reactive Protein Total Protein Albumin Triglycerides HDL Cholesterol Miscellaneous Test Crossmatch 09/09/17 09/09/17 09/09/17 05:29 12:03 18:05 WBC RBC Hgb Hct MCV MCH RDW Plt Count Lymph % (Auto) [place] % (Auto) [place] # Seg Neutrophils % Seg Neuts % (Manual) Lymphocytes % (Manual) Monocytes % (Manual) Nucleated RBC % Seg Neutrophils # Seg Neutrophils # Man Lymphocytes # (Manual) Monocytes # (Manual) Eosinophils # (Manual) Basophils # (Manual) PT INR POC ABG pH ABG pH POC ABG pCO2 POC ABG pO2 ABG pO2 ABG O2 Saturation ABG Base Excess ABG Hemoglobin Oxyhemoglobin Sodium Potassium Chloride Carbon Dioxide BUN Creatinine Glucose POC Glucose 168 H 143 H 173 H Calcium Phosphorus Magnesium Iron TIBC Ferritin AST ALT Alkaline Phosphatase Troponin T C-Reactive Protein Total Protein Albumin Triglycerides HDL Cholesterol Miscellaneous Test Crossmatch 09/09/17 09/09/17 09/10/17 23:30 Unknown 05:04 WBC RBC Hgb Hct MCV MCH RDW Plt Count Lymph % (Auto) [place] % (Auto) [place] # Seg Neutrophils % Seg Neuts % (Manual) Lymphocytes % (Manual) Monocytes % (Manual) Nucleated RBC % Seg Neutrophils # Seg Neutrophils # Man Lymphocytes # (Manual) Monocytes # (Manual) Eosinophils # (Manual) Basophils # (Manual) PT INR POC ABG pH ABG pH 7.323 L POC ABG pCO2 POC ABG pO2 ABG pO2 94.1 H ABG O2 Saturation ABG Base Excess -4.8 L ABG Hemoglobin 8.0 L Oxyhemoglobin 94.9 L Sodium Potassium Chloride Carbon Dioxide BUN Creatinine Glucose POC Glucose 212 H 155 H Calcium Phosphorus Magnesium Iron TIBC Ferritin AST ALT Alkaline Phosphatase Troponin T C-Reactive Protein Total Protein Albumin Triglycerides HDL Cholesterol Miscellaneous Test Crossmatch 09/10/17 09/10/17 09/10/17 07:00 09:55 12:22 WBC 24.7 H RBC 2.62 L Hgb 7.5 L Hct 22.5 L MCV MCH RDW 20.8 H Plt Count Lymph % (Auto) [place] % (Auto) [place] # Seg Neutrophils % Seg Neuts % (Manual) Lymphocytes % (Manual) Monocytes % (Manual) Nucleated RBC % Seg Neutrophils # Seg Neutrophils # Man Lymphocytes # (Manual) Monocytes # (Manual) Eosinophils # (Manual) Basophils # (Manual) PT INR POC ABG pH ABG pH POC ABG pCO2 POC ABG pO2 ABG pO2 ABG O2 Saturation ABG Base Excess ABG Hemoglobin Oxyhemoglobin Sodium Potassium Chloride 97.9 L Carbon Dioxide BUN 78 H Creatinine 2.0 H Glucose 126 H POC Glucose 183 H Calcium 8.2 L Phosphorus Magnesium Iron TIBC Ferritin AST ALT Alkaline Phosphatase Troponin T C-Reactive Protein Total Protein Albumin Triglycerides HDL Cholesterol Miscellaneous Test Crossmatch 09/11/17 09/11/17 09/11/17 00:08 03:50 05:28 WBC 21.6 H RBC 2.52 L Hgb 7.4 L Hct 22.2 L MCV MCH RDW 21.5 H Plt Count Lymph % (Auto) [place] % (Auto) [place] # Seg Neutrophils % Seg Neuts % (Manual) 92.0 H Lymphocytes % (Manual) 3.0 L Monocytes % (Manual) Nucleated RBC % Seg Neutrophils # Seg Neutrophils # Man 19.9 H Lymphocytes # (Manual) 0.6 L Monocytes # (Manual) Eosinophils # (Manual) Basophils # (Manual) PT INR POC ABG pH ABG pH POC ABG pCO2 POC ABG pO2 ABG pO2 ABG O2 Saturation ABG Base Excess ABG Hemoglobin Oxyhemoglobin Sodium Potassium Chloride Carbon Dioxide BUN Creatinine Glucose POC Glucose 213 H 181 H Calcium Phosphorus Magnesium Iron TIBC Ferritin AST ALT Alkaline Phosphatase Troponin T C-Reactive Protein Total Protein Albumin Triglycerides HDL Cholesterol Miscellaneous Test Crossmatch 09/11/17 09/11/17 09/11/17 11:55 17:56 23:12 WBC RBC Hgb Hct MCV MCH RDW Plt Count Lymph % (Auto) [place] % (Auto) [place] # Seg Neutrophils % Seg Neuts % (Manual) Lymphocytes % (Manual) Monocytes % (Manual) Nucleated RBC % Seg Neutrophils # Seg Neutrophils # Man Lymphocytes # (Manual) Monocytes # (Manual) Eosinophils # (Manual) Basophils # (Manual) PT INR POC ABG pH ABG pH POC ABG pCO2 POC ABG pO2 ABG pO2 ABG O2 Saturation ABG Base Excess ABG Hemoglobin Oxyhemoglobin Sodium Potassium Chloride Carbon Dioxide 21 L BUN 80 H Creatinine 2.1 H Glucose 170 H POC Glucose 277 H 206 H Calcium 8.0 L Phosphorus Magnesium Iron TIBC Ferritin AST ALT Alkaline Phosphatase Troponin T C-Reactive Protein Total Protein Albumin Triglycerides HDL Cholesterol Miscellaneous Test Crossmatch 09/11/17 09/12/17 09/12/17 23:36 05:25 05:25 WBC 17.4 H RBC 2.29 L Hgb 6.7 L Hct 20.4 L MCV MCH RDW 21.2 H Plt Count Lymph % (Auto) [place] % (Auto) [place] # Seg Neutrophils % Seg Neuts % (Manual) 79.0 H Lymphocytes % (Manual) 5.0 L Monocytes % (Manual) Nucleated RBC % 1.0 H Seg Neutrophils # Seg Neutrophils # Man 13.7 H Lymphocytes # (Manual) 0.9 L Monocytes # (Manual) 1.2 H Eosinophils # (Manual) Basophils # (Manual) PT INR POC ABG pH ABG pH POC ABG pCO2 POC ABG pO2 ABG pO2 ABG O2 Saturation ABG Base Excess ABG Hemoglobin Oxyhemoglobin Sodium Potassium Chloride Carbon Dioxide BUN Creatinine Glucose POC Glucose 190 H Calcium Phosphorus Magnesium Iron 22 L TIBC 81 L Ferritin AST ALT Alkaline Phosphatase Troponin T C-Reactive Protein Total Protein Albumin Triglycerides HDL Cholesterol Miscellaneous Test Crossmatch 09/12/17 09/12/17 09/12/17 05:25 05:36 09:14 WBC RBC Hgb Hct MCV MCH RDW Plt Count Lymph % (Auto) [place] % (Auto) [place] # Seg Neutrophils % Seg Neuts % (Manual) Lymphocytes % (Manual) Monocytes % (Manual) Nucleated RBC % Seg Neutrophils # Seg Neutrophils # Man Lymphocytes # (Manual) Monocytes # (Manual) Eosinophils # (Manual) Basophils # (Manual) PT INR POC ABG pH ABG pH POC ABG pCO2 POC ABG pO2 ABG pO2 ABG O2 Saturation ABG Base Excess ABG Hemoglobin Oxyhemoglobin Sodium Potassium Chloride Carbon Dioxide BUN Creatinine Glucose POC Glucose 141 H Calcium Phosphorus Magnesium Iron TIBC Ferritin > 2000.0 H AST ALT Alkaline Phosphatase Troponin T C-Reactive Protein Total Protein Albumin Triglycerides HDL Cholesterol Miscellaneous Test Crossmatch See Detail 09/12/17 09/12/17 09/12/17 11:18 15:22 17:18 WBC RBC Hgb 8.5 L Hct 25.4 L MCV MCH RDW Plt Count Lymph % (Auto) [place] % (Auto) [place] # Seg Neutrophils % Seg Neuts % (Manual) Lymphocytes % (Manual) Monocytes % (Manual) Nucleated RBC % Seg Neutrophils # Seg Neutrophils # Man Lymphocytes # (Manual) Monocytes # (Manual) Eosinophils # (Manual) Basophils # (Manual) PT INR POC ABG pH ABG pH POC ABG pCO2 POC ABG pO2 ABG pO2 ABG O2 Saturation ABG Base Excess ABG Hemoglobin Oxyhemoglobin Sodium Potassium Chloride Carbon Dioxide BUN Creatinine Glucose POC Glucose 262 H 193 H Calcium Phosphorus Magnesium Iron TIBC Ferritin AST ALT Alkaline Phosphatase Troponin T C-Reactive Protein Total Protein Albumin Triglycerides HDL Cholesterol Miscellaneous Test Crossmatch 09/13/17 09/13/17 09/13/17 00:05 06:25 11:36 WBC RBC Hgb Hct MCV MCH RDW Plt Count Lymph % (Auto) [place] % (Auto) [place] # Seg Neutrophils % Seg Neuts % (Manual) Lymphocytes % (Manual) Monocytes % (Manual) Nucleated RBC % Seg Neutrophils # Seg Neutrophils # Man Lymphocytes # (Manual) Monocytes # (Manual) Eosinophils # (Manual) Basophils # (Manual) PT INR POC ABG pH 7.347 L ABG pH POC ABG pCO2 34.3 L POC ABG pO2 134 H ABG pO2 ABG O2 Saturation ABG Base Excess ABG Hemoglobin Oxyhemoglobin Sodium Potassium Chloride Carbon Dioxide BUN Creatinine Glucose POC Glucose 235 H 286 H Calcium Phosphorus Magnesium Iron TIBC Ferritin AST ALT Alkaline Phosphatase Troponin T C-Reactive Protein Total Protein Albumin Triglycerides HDL Cholesterol Miscellaneous Test Crossmatch 09/13/17 09/13/17 09/13/17 11:56 17:25 23:18 WBC RBC Hgb Hct MCV MCH RDW Plt Count Lymph % (Auto) [place] % (Auto) [place] # Seg Neutrophils % Seg Neuts % (Manual) Lymphocytes % (Manual) Monocytes % (Manual) Nucleated RBC % Seg Neutrophils # Seg Neutrophils # Man Lymphocytes # (Manual) Monocytes # (Manual) Eosinophils # (Manual) Basophils # (Manual) PT INR POC ABG pH ABG pH POC ABG pCO2 POC ABG pO2 ABG pO2 ABG O2 Saturation ABG Base Excess ABG Hemoglobin Oxyhemoglobin Sodium Potassium Chloride Carbon Dioxide BUN Creatinine Glucose POC Glucose 318 H 278 H 230 H Calcium Phosphorus Magnesium Iron TIBC Ferritin AST ALT Alkaline Phosphatase Troponin T C-Reactive Protein Total Protein Albumin Triglycerides HDL Cholesterol Miscellaneous Test Crossmatch 09/13/17 09/13/17 09/13/17 Unknown Unknown Unknown WBC 15.6 H RBC 2.72 L Hgb 8.1 L Hct 23.9 L MCV MCH RDW 19.5 H Plt Count 137 L Lymph % (Auto) [place] % (Auto) [place] # Seg Neutrophils % Seg Neuts % (Manual) 73.0 H Lymphocytes % (Manual) 3.0 L Monocytes % (Manual) 19.0 H Nucleated RBC % 2.0 H Seg Neutrophils # Seg Neutrophils # Man 11.4 H Lymphocytes # (Manual) 0.5 L Monocytes # (Manual) 3.0 H Eosinophils # (Manual) Basophils # (Manual) PT INR POC ABG pH ABG pH POC ABG pCO2 POC ABG pO2 ABG pO2 ABG O2 Saturation ABG Base Excess ABG Hemoglobin Oxyhemoglobin Sodium Potassium Chloride Carbon Dioxide 19 L BUN 103 H Creatinine 2.6 H Glucose 173 H POC Glucose Calcium Phosphorus Magnesium Iron TIBC Ferritin AST ALT Alkaline Phosphatase Troponin T C-Reactive Protein Total Protein Albumin < 0.2 L Triglycerides HDL Cholesterol Miscellaneous Test Crossmatch 09/14/17 09/14/17 09/14/17 03:15 03:15 05:16 WBC 12.5 H RBC 2.55 L Hgb 7.6 L Hct 22.5 L MCV MCH RDW 19.8 H Plt Count 139 L Lymph % (Auto) [place] % (Auto) [place] # Seg Neutrophils % Seg Neuts % (Manual) Lymphocytes % (Manual) Monocytes % (Manual) Nucleated RBC % Seg Neutrophils # Seg Neutrophils # Man Lymphocytes # (Manual) Monocytes # (Manual) Eosinophils # (Manual) Basophils # (Manual) PT INR POC ABG pH ABG pH POC ABG pCO2 POC ABG pO2 ABG pO2 ABG O2 Saturation ABG Base Excess ABG Hemoglobin Oxyhemoglobin Sodium Potassium Chloride Carbon Dioxide BUN 75 H Creatinine 2.1 H Glucose 217 H POC Glucose 283 H Calcium Phosphorus 2.20 L D Magnesium Iron TIBC Ferritin AST ALT Alkaline Phosphatase Troponin T C-Reactive Protein Total Protein Albumin Triglycerides HDL Cholesterol Miscellaneous Test Crossmatch Chest x-ray: report reviewed, image reviewed
--- NOTE | 2017-09-14 10:49 | Progress Note ---
Assessment and Plan ESRD - Tolerated HD yesterday, for UF today Vitals - Vasopressor as tolerated Lytes - F/u labs Periph Edema - UF on HD as tolerated Vitals - F/u closely Subjective Date of service: 09/14/17 Principal diagnosis: respiratory failure, sepsis, shock rectal bleeding Objective - Vital Signs Vital signs: Vital Signs - 12hr 09/13/17 09/13/17 09/13/17 22:45 22:54 23:01 Temperature Pulse Rate 104 H 88 87 Pulse Rate [ Anterior Bilateral Throughout] Pulse Rate [ Right] Respiratory 15 20 20 Rate Respiratory Rate [Anterior Bilateral Throughout] Blood Pressure O2 Sat by Pulse 100 100 100 Oximetry O2 Sat by Pulse Oximetry [ Assessment] 09/13/17 09/13/17 09/13/17 23:09 23:15 23:31 Temperature Pulse Rate 84 88 77 Pulse Rate [ Anterior Bilateral Throughout] Pulse Rate [ Right] Respiratory 20 19 20 Rate Respiratory Rate [Anterior Bilateral Throughout] Blood Pressure O2 Sat by Pulse 100 100 100 Oximetry O2 Sat by Pulse Oximetry [ Assessment] 09/13/17 09/13/17 09/13/17 23:45 23:48 23:51 Temperature Pulse Rate 86 87 Pulse Rate [ Anterior Bilateral Throughout] Pulse Rate [ Right] Respiratory 20 Rate Respiratory Rate [Anterior Bilateral Throughout] Blood Pressure 112/54 O2 Sat by Pulse 100 100 Oximetry O2 Sat by Pulse 100 Oximetry [ Assessment] 09/14/17 09/14/17 09/14/17 00:00 00:01 00:15 Temperature 99.0 F Pulse Rate 80 78 85 Pulse Rate [ Anterior Bilateral Throughout] Pulse Rate [ Right] Respiratory 20 20 20 Rate Respiratory Rate [Anterior Bilateral Throughout] Blood Pressure O2 Sat by Pulse 100 100 100 Oximetry O2 Sat by Pulse Oximetry [ Assessment] 09/14/17 09/14/17 09/14/17 00:31 00:45 01:00 Temperature Pulse Rate 100 H 80 Pulse Rate [ Anterior Bilateral Throughout] Pulse Rate [ 144 H Right] Respiratory 28 H 20 20 Rate Respiratory Rate [Anterior Bilateral Throughout] Blood Pressure 112/54 O2 Sat by Pulse 99 100 100 Oximetry O2 Sat by Pulse Oximetry [ Assessment] 09/14/17 09/14/17 09/14/17 01:01 01:15 01:31 Temperature Pulse Rate 80 79 88 Pulse Rate [ Anterior Bilateral Throughout] Pulse Rate [ Right] Respiratory 20 20 18 Rate Respiratory Rate [Anterior Bilateral Throughout] Blood Pressure O2 Sat by Pulse 100 100 100 Oximetry O2 Sat by Pulse Oximetry [ Assessment] 09/14/17 09/14/17 09/14/17 01:45 02:00 02:01 Temperature Pulse Rate 77 78 78 Pulse Rate [ 79 Anterior Bilateral Throughout] Pulse Rate [ Right] Respiratory 20 20 Rate Respiratory 20 Rate [Anterior Bilateral Throughout] Blood Pressure O2 Sat by Pulse 98 100 88 Oximetry O2 Sat by Pulse Oximetry [ Assessment] 09/14/17 09/14/17 09/14/17 02:15 02:31 02:45 Temperature Pulse Rate 77 76 78 Pulse Rate [ Anterior Bilateral Throughout] Pulse Rate [ Right] Respiratory 20 20 20 Rate Respiratory Rate [Anterior Bilateral Throughout] Blood Pressure O2 Sat by Pulse 96 88 99 Oximetry O2 Sat by Pulse Oximetry [ Assessment] 09/14/17 09/14/17 09/14/17 03:01 03:10 03:15 Temperature Pulse Rate 78 84 Pulse Rate [ Anterior Bilateral Throughout] Pulse Rate [ Right] Respiratory 20 20 20 Rate Respiratory Rate [Anterior Bilateral Throughout] Blood Pressure O2 Sat by Pulse 91 99 91 Oximetry O2 Sat by Pulse Oximetry [ Assessment] 09/14/17 09/14/17 09/14/17 03:31 03:45 03:50 Temperature 98.4 F Pulse Rate 86 92 H Pulse Rate [ Anterior Bilateral Throughout] Pulse Rate [ Right] Respiratory 20 19 Rate Respiratory Rate [Anterior Bilateral Throughout] Blood Pressure O2 Sat by Pulse 91 97 Oximetry O2 Sat by Pulse Oximetry [ Assessment] 09/14/17 09/14/17 09/14/17 04:01 04:15 04:23 Temperature Pulse Rate 91 H 109 H Pulse Rate [ Anterior Bilateral Throughout] Pulse Rate [ Right] Respiratory 20 18 17 Rate Respiratory Rate [Anterior Bilateral Throughout] Blood Pressure O2 Sat by Pulse 98 100 99 Oximetry O2 Sat by Pulse Oximetry [ Assessment] 09/14/17 09/14/17 09/14/17 04:31 04:41 04:45 Temperature Pulse Rate 89 109 H 82 Pulse Rate [ Anterior Bilateral Throughout] Pulse Rate [ Right] Respiratory 20 20 Rate Respiratory Rate [Anterior Bilateral Throughout] Blood Pressure 112/54 O2 Sat by Pulse 99 98 98 Oximetry O2 Sat by Pulse Oximetry [ Assessment] 09/14/17 09/14/17 09/14/17 05:01 05:15 05:30 Temperature Pulse Rate 90 98 H 111 H Pulse Rate [ Anterior Bilateral Throughout] Pulse Rate [ Right] Respiratory 19 18 Rate Respiratory Rate [Anterior Bilateral Throughout] Blood Pressure O2 Sat by Pulse 100 100 Oximetry O2 Sat by Pulse Oximetry [ Assessment] 09/14/17 09/14/17 09/14/17 05:31 05:45 06:01 Temperature Pulse Rate 111 H 90 87 Pulse Rate [ Anterior Bilateral Throughout] Pulse Rate [ Right] Respiratory 19 20 22 Rate Respiratory Rate [Anterior Bilateral Throughout] Blood Pressure O2 Sat by Pulse 100 99 100 Oximetry O2 Sat by Pulse Oximetry [ Assessment] 09/14/17 09/14/17 09/14/17 06:15 06:31 06:45 Temperature Pulse Rate 83 82 98 H Pulse Rate [ Anterior Bilateral Throughout] Pulse Rate [ Right] Respiratory 20 20 16 Rate Respiratory Rate [Anterior Bilateral Throughout] Blood Pressure O2 Sat by Pulse 100 99 100 Oximetry O2 Sat by Pulse Oximetry [ Assessment] 09/14/17 09/14/17 09/14/17 07:01 07:15 07:31 Temperature Pulse Rate 87 102 H 81 Pulse Rate [ Anterior Bilateral Throughout] Pulse Rate [ Right] Respiratory 20 29 H 20 Rate Respiratory Rate [Anterior Bilateral Throughout] Blood Pressure O2 Sat by Pulse 100 100 100 Oximetry O2 Sat by Pulse Oximetry [ Assessment] 09/14/17 09/14/17 09/14/17 07:45 08:00 08:01 Temperature 98.0 F Pulse Rate 99 H 94 H Pulse Rate [ Anterior Bilateral Throughout] Pulse Rate [ Right] Respiratory 25 H 19 Rate Respiratory Rate [Anterior Bilateral Throughout] Blood Pressure O2 Sat by Pulse 100 98 100 Oximetry O2 Sat by Pulse Oximetry [ Assessment] 09/14/17 09/14/17 09/14/17 08:04 08:15 08:31 Temperature Pulse Rate 89 98 H 83 Pulse Rate [ 81 88 Anterior Bilateral Throughout] Pulse Rate [ Right] Respiratory 16 20 Rate Respiratory 20 20 Rate [Anterior Bilateral Throughout] Blood Pressure 118/51 O2 Sat by Pulse 100 100 100 Oximetry O2 Sat by Pulse Oximetry [ Assessment] 09/14/17 09/14/17 09/14/17 08:45 09:01 09:15 Temperature Pulse Rate 84 87 75 Pulse Rate [ Anterior Bilateral Throughout] Pulse Rate [ Right] Respiratory 18 20 20 Rate Respiratory Rate [Anterior Bilateral Throughout] Blood Pressure O2 Sat by Pulse 100 100 100 Oximetry O2 Sat by Pulse Oximetry [ Assessment] - General Appearance General appearance: chronically ill Respiratory: Present: Other (On vent) Cardiology: regular, S1S2 - Lab 09/14/17 03:15 09/14/17 03:15 Most recent lab results ABG pH 7.323 pH Units (7.350-7.450) L 09/09/17 Unknown ABG pCO2 41.1 mm Hg 09/09/17 Unknown ABG pO2 94.1 mm Hg (80.0-90.0) H 09/09/17 Unknown ABG HCO3 20.9 mmol/L (20.0-26.0) 09/09/17 Unknown ABG O2 Saturation 97.2 % (95.0-99.0) 09/09/17 Unknown Calcium 8.5 mg/dL (8.4-10.2) 09/14/17 03:15 Phosphorus 2.20 mg/dL (2.5-4.5) L D 09/14/17 03:15 Magnesium 1.80 mg/dL (1.7-2.3) 09/13/17 Unknown
[2017-09-14] MEDS: MYCAMINE 100 MG in NACL 0.9% 100 ML IV SCH (11:06)
[2017-09-14] MEDS: LEVEMIR SUB-Q SCH (11:07)
[2017-09-14] MEDS: DILAUDID IV PRN (11:54)
[2017-09-14] MEDS: ATIVAN IV PRN (12:48)
[2017-09-14] MEDS: CUBICIN IV SCH (13:00)
[2017-09-14] MEDS: NACL 0.9% IV SCH (13:00)
--- NOTE | 2017-09-14 13:09 | Progress Note ---
Assessment and Plan Assessment: 1) Sepsis with septic shock: with remarkably improve BP measured by art line and started on IV steroids yesterday, leukocytosis improving; new source ? unclear ? BP cuff error ? GI bleed. Repeat CT no abscess no collection. CXR pulmonary edema. Ivan removed. -CRP= 34 -->30 -->19-->0.1 ->2.8 -procalcitonin=1.3 -->7.6 -->3.9 -->3.2 2) Bowel obstruction / suspect ?gastric perforation ? peritonitis -S/P Exlap, G-tube placement, EGD, abdominal washout and removal of PD -OR findings - bowel obstruction due to entanglement of PD cath, abscess cavity in LUQ and ? suspect perforation of unclear location 3) CA-UTI: chronic ivan exchanged every 4 weeks and ureteral stents in place which are exchanged every 6 months ? urine cultures still pending should r/o MDR bacteria 4) Paraplegia 5) ESRD on PD - no evidence of peritonitis, wbc count 2. GREASE PACKER and Diphteroids on peritoneal fluid likely contaminants. 6) Recent pancreatitis 7) Penicillin allergy-has taken keflex w/o problems 8) Presumed Surgical wound infection / dehiscence ? 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 11) Sacral stage II 12) Anemia- severe- Hg 6.7 today Plan: -hypotension likely non infectious related, likely adrenal insuficiency or BP cuff error -taper off pressors -continue dapto IV day 6 of 7 -continue micafungin day 4 of 7 -continue meropenem 7 of 10 -monitor leukocytosis which is better -wound care I am off tomorrow, I will see her back on Saturday Thank you Dr Cantu for your consultation, will follow up with you. Ramya Lang MD Infectious Diseases Specialist [facility] M [phone] O [phone] Subjective Date of service: 09/14/17 Principal diagnosis: respiratory failure, sepsis, shock rectal bleeding Interval history: Pt remains on the vent now on levophed at 2 mcg and vasopressin 0.03, on TPN, fentanyl, no fever. Microbiology: Blood cultures: 08/08 neg 08/12 neg 08/16 neg 08/20 neg 08/29 neg 09/06 neg 09/12 ngtd Urine cultures: 08/08 10-100K skin grace Respiratory cultures: 08/30 tracheal asp MRSA Wound cultures: 08/26 Staph aureus and Kristine 08/28 MRSA, E faecalis, Kristine albicans Stool cultures: Other: 08/08 peritoneal fluid + GREASE PACKER/Diphteroids Current Antimicrobials: dapto 09/10 meropenem 09/09 micafungin 09/11 Previous Antimicrobials: 08/10 levaquin 08/16 vancomycin 08/13 meropenem 08/16 fluconazole Micafungin 08/29 meropenem 08/29 zyvox 09/03 fluconazole 09/03 Objective - Exam Narrative Exam: General appearance: sedated on vent via trach Eyes: anicteric sclerae, moist conjunctivae; no lid-lag; PERRLA HENT: Atraumatic; NGT Neck: Trach in place Lungs: coarse BS moreno CV: RRR, no murmurs Abdomen: soft, midline surgical wound with sutures no drainage. Gtube. drain Extremities: + peripheral edema + leg ulcer no drainage Skin: right groin old fem line wound no erythema, no drainage Psych: sedated. Neuro: sedated Lines: right IJ vas cath / Right IJ Nair 08/16 - Constitutional Vitals: Vital Signs Temp Pulse Resp BP Pulse Ox 98.2 F 88 21 109/48 100 09/14/17 12:00 09/14/17 12:30 09/14/17 11:45 09/14/17 12:30 09/14/17 12:30 Temperature -Last 24 Hours Temperature 98.2 F Temperature 98.0 F Temperature 98.4 F Temperature 99.0 F Temperature 98.9 F Temperature 98.9 F Temperature 96.2 F - Labs CBC & Chem 7: 09/14/17 03:15 09/14/17 03:15 Labs: Abnormal lab results 09/13/17 09/13/17 09/14/17 Range/Units 17:25 23:18 03:15 WBC (4.5-11.0) K/mm3 RBC (3.65-5.03) M/mm3 Hgb (10.1-14.3) gm/dl Hct (30.3-42.9) % RDW (13.2-15.2) % Plt Count (140-440) K/mm3 BUN 75 H (7-17) mg/dL Creatinine 2.1 H (0.7-1.2) mg/dL Glucose 217 H (65-100) mg/dL POC Glucose 278 H 230 H (70-105) Phosphorus 2.20 L D (2.5-4.5) mg/dL 09/14/17 09/14/17 09/14/17 Range/Units 03:15 05:16 12:11 WBC 12.5 H (4.5-11.0) K/mm3 RBC 2.55 L (3.65-5.03) M/mm3 Hgb 7.6 L (10.1-14.3) gm/dl Hct 22.5 L (30.3-42.9) % RDW 19.8 H (13.2-15.2) % Plt Count 139 L (140-440) K/mm3 BUN (7-17) mg/dL Creatinine (0.7-1.2) mg/dL Glucose (65-100) mg/dL POC Glucose 283 H 251 H (70-105) Phosphorus (2.5-4.5) mg/dL
[2017-09-14] MEDS: MERREM 1,000 MG in NACL 0.9% 100 ML IV SCH (14:42)
--- NOTE | 2017-09-14 14:50 | Progress Note ---
Assessment and Plan 62 y.o. F s/p ex lap, abdominal wash out and abdominal wall closure after wound dehiscence 2 weeks s/p ex lap for gastric perforation and sbo. Sepsis: Pt requiring levo, vaso. s/p [place] placement with now decreasing amount of Levo required. Leukocytosis improving. restart of steroids per pulm- steroids place wound at greater risk of poor wound healing. Discussed risk vs benefit with pulm. on Saturday. -[place] placed- following anna does not match bp cuff pressors. following anna. -Wound care following wounds on legs/sacrum - ID following - merrem, mycamin, cubicin VDRF: s/p trach. GI bleed-resolved: Prev Gastric perf: Leak test today via NG tube and methylene blue. No blue noted in MERVIN. Minimal NG and G tube output after clamping. Can start trickle feeds with checking of residuals. Rec. start 10cc/hr without titration for 24hrs. CKD- HD per renal Nutrition: TPN at 75, albumin supp. DVT proph: scds hold hep with GI bleed. GI: PPI. - Patient Problems (1) Peritonitis (acute) generalized Current Visit: Yes Status: Acute Subjective Narrative: Pt seen and examined at bedside. Pt more alert today. She responds with pain- her arms are moving. she opens her eyes on command but does not following commands. A line placed yesterday- A line BP discrepancy compared to BP cuff. Levo weaned down to 3 and vaso remains at 0.03. She did have HD last night with removal fo 4 L. afebrile G tube 295cc bilous J tube 55cc drk red mixed with light red. thin drainage no clots. Objective Vital Signs - 12hr 09/14/17 09/14/17 09/14/17 03:01 03:10 03:15 Temperature Pulse Rate 78 84 Pulse Rate [ Anterior Bilateral Throughout] Respiratory 20 20 20 Rate Respiratory Rate [Anterior Bilateral Throughout] Respiratory Rate [ Generalized] Blood Pressure O2 Sat by Pulse 91 99 91 Oximetry O2 Sat by Pulse Oximetry [ Assessment] 09/14/17 09/14/17 09/14/17 03:31 03:45 03:50 Temperature 98.4 F Pulse Rate 86 92 H Pulse Rate [ Anterior Bilateral Throughout] Respiratory 20 19 Rate Respiratory Rate [Anterior Bilateral Throughout] Respiratory Rate [ Generalized] Blood Pressure O2 Sat by Pulse 91 97 Oximetry O2 Sat by Pulse Oximetry [ Assessment] 09/14/17 09/14/17 09/14/17 04:01 04:15 04:23 Temperature Pulse Rate 91 H 109 H Pulse Rate [ Anterior Bilateral Throughout] Respiratory 20 18 17 Rate Respiratory Rate [Anterior Bilateral Throughout] Respiratory Rate [ Generalized] Blood Pressure O2 Sat by Pulse 98 100 99 Oximetry O2 Sat by Pulse Oximetry [ Assessment] 09/14/17 09/14/17 09/14/17 04:31 04:41 04:45 Temperature Pulse Rate 89 109 H 82 Pulse Rate [ Anterior Bilateral Throughout] Respiratory 20 20 Rate Respiratory Rate [Anterior Bilateral Throughout] Respiratory Rate [ Generalized] Blood Pressure 112/54 O2 Sat by Pulse 99 98 98 Oximetry O2 Sat by Pulse Oximetry [ Assessment] 09/14/17 09/14/17 09/14/17 05:01 05:15 05:30 Temperature Pulse Rate 90 98 H 111 H Pulse Rate [ Anterior Bilateral Throughout] Respiratory 19 18 Rate Respiratory Rate [Anterior Bilateral Throughout] Respiratory Rate [ Generalized] Blood Pressure O2 Sat by Pulse 100 100 Oximetry O2 Sat by Pulse Oximetry [ Assessment] 09/14/17 09/14/17 09/14/17 05:31 05:45 06:01 Temperature Pulse Rate 111 H 90 87 Pulse Rate [ Anterior Bilateral Throughout] Respiratory 19 20 22 Rate Respiratory Rate [Anterior Bilateral Throughout] Respiratory Rate [ Generalized] Blood Pressure O2 Sat by Pulse 100 99 100 Oximetry O2 Sat by Pulse Oximetry [ Assessment] 09/14/17 09/14/17 09/14/17 06:15 06:31 06:45 Temperature Pulse Rate 83 82 98 H Pulse Rate [ Anterior Bilateral Throughout] Respiratory 20 20 16 Rate Respiratory Rate [Anterior Bilateral Throughout] Respiratory Rate [ Generalized] Blood Pressure O2 Sat by Pulse 100 99 100 Oximetry O2 Sat by Pulse Oximetry [ Assessment] 09/14/17 09/14/17 09/14/17 07:01 07:15 07:31 Temperature Pulse Rate 87 102 H 81 Pulse Rate [ Anterior Bilateral Throughout] Respiratory 20 29 H 20 Rate Respiratory Rate [Anterior Bilateral Throughout] Respiratory Rate [ Generalized] Blood Pressure O2 Sat by Pulse 100 100 100 Oximetry O2 Sat by Pulse Oximetry [ Assessment] 09/14/17 09/14/17 09/14/17 07:45 08:00 08:01 Temperature 98.0 F Pulse Rate 99 H 94 H Pulse Rate [ Anterior Bilateral Throughout] Respiratory 25 H 19 Rate Respiratory Rate [Anterior Bilateral Throughout] Respiratory Rate [ Generalized] Blood Pressure O2 Sat by Pulse 100 98 100 Oximetry O2 Sat by Pulse 100 Oximetry [ Assessment] 09/14/17 09/14/17 09/14/17 08:04 08:15 08:31 Temperature Pulse Rate 89 98 H 83 Pulse Rate [ 81 88 Anterior Bilateral Throughout] Respiratory 16 20 Rate Respiratory 20 20 Rate [Anterior Bilateral Throughout] Respiratory Rate [ Generalized] Blood Pressure 118/51 O2 Sat by Pulse 100 100 100 Oximetry O2 Sat by Pulse Oximetry [ Assessment] 09/14/17 09/14/17 09/14/17 08:45 09:01 09:15 Temperature Pulse Rate 84 87 75 Pulse Rate [ Anterior Bilateral Throughout] Respiratory 18 20 20 Rate Respiratory Rate [Anterior Bilateral Throughout] Respiratory Rate [ Generalized] Blood Pressure O2 Sat by Pulse 100 100 100 Oximetry O2 Sat by Pulse Oximetry [ Assessment] 09/14/17 09/14/17 09/14/17 09:31 09:45 10:00 Temperature Pulse Rate 78 78 107 H Pulse Rate [ Anterior Bilateral Throughout] Respiratory 20 20 Rate Respiratory Rate [Anterior Bilateral Throughout] Respiratory 20 Rate [ Generalized] Blood Pressure O2 Sat by Pulse 100 100 Oximetry O2 Sat by Pulse Oximetry [ Assessment] 09/14/17 09/14/17 09/14/17 10:01 10:15 10:31 Temperature Pulse Rate 79 84 87 Pulse Rate [ Anterior Bilateral Throughout] Respiratory 20 21 20 Rate Respiratory Rate [Anterior Bilateral Throughout] Respiratory Rate [ Generalized] Blood Pressure O2 Sat by Pulse 100 100 100 Oximetry O2 Sat by Pulse Oximetry [ Assessment] 09/14/17 09/14/17 09/14/17 10:45 11:01 11:15 Temperature Pulse Rate 106 H 98 H 88 Pulse Rate [ Anterior Bilateral Throughout] Respiratory 11 L 12 20 Rate Respiratory Rate [Anterior Bilateral Throughout] Respiratory Rate [ Generalized] Blood Pressure O2 Sat by Pulse 100 100 100 Oximetry O2 Sat by Pulse Oximetry [ Assessment] 09/14/17 09/14/17 09/14/17 11:31 11:45 12:00 Temperature 98.2 F Pulse Rate 82 82 Pulse Rate [ Anterior Bilateral Throughout] Respiratory 19 21 Rate Respiratory Rate [Anterior Bilateral Throughout] Respiratory Rate [ Generalized] Blood Pressure O2 Sat by Pulse 100 100 99 Oximetry O2 Sat by Pulse Oximetry [ Assessment] 09/14/17 09/14/17 12:30 13:18 Temperature Pulse Rate 88 Pulse Rate [ 83 Anterior Bilateral Throughout] Respiratory Rate Respiratory 20 Rate [Anterior Bilateral Throughout] Respiratory Rate [ Generalized] Blood Pressure 109/48 O2 Sat by Pulse 100 Oximetry O2 Sat by Pulse Oximetry [ Assessment] - General physical appearance chronically ill, obese - Respiratory normal expansion, normal respiratory effort - Abdomen soft, other (tender midline at incision site. serosang drainage from superior portion of incision. packing removed. irrigated with saline. superior incision: base of wound is friable. lower portion of incision is healing well. wound repacked with kerlex. gauze placed under retention sutures. MERVIN and G tube in place. no drainage from prev pd cath site. apprx 3cm (L). covered without packing. grimace with palpation of superior portion of abd. ) - Integumentary other (weeping of serous fluid from various skin sites ) - Neurologic confused - Musculoskeletal other (+3 edema RUE. +1-2 edema LUE. +3 edema BL LE. ) - Psychiatric other (moves arms in response to pain however does not follow commands. ) - Labs 09/14/17 03:15 09/14/17 03:15 Diabetes panel 09/14/17 Range/Units 03:15 Sodium 139 (137-145) mmol/L Potassium 4.3 (3.6-5.0) mmol/L Chloride 99.6 (98-107) mmol/L Carbon Dioxide 22 (22-30) mmol/L BUN 75 H (7-17) mg/dL Creatinine 2.1 H (0.7-1.2) mg/dL Glucose 217 H (65-100) mg/dL Calcium 8.5 (8.4-10.2) mg/dL Calcium panel 09/14/17 Range/Units 03:15 Calcium 8.5 (8.4-10.2) mg/dL Phosphorus 2.20 L D (2.5-4.5) mg/dL Pituitary panel 09/14/17 Range/Units 03:15 Sodium 139 (137-145) mmol/L Potassium 4.3 (3.6-5.0) mmol/L Chloride 99.6 (98-107) mmol/L Carbon Dioxide 22 (22-30) mmol/L BUN 75 H (7-17) mg/dL Creatinine 2.1 H (0.7-1.2) mg/dL Glucose 217 H (65-100) mg/dL Calcium 8.5 (8.4-10.2) mg/dL Adrenal panel 09/14/17 Range/Units 03:15 Sodium 139 (137-145) mmol/L Potassium 4.3 (3.6-5.0) mmol/L Chloride 99.6 (98-107) mmol/L Carbon Dioxide 22 (22-30) mmol/L BUN 75 H (7-17) mg/dL Creatinine 2.1 H (0.7-1.2) mg/dL Glucose 217 H (65-100) mg/dL Calcium 8.5 (8.4-10.2) mg/dL
[2017-09-14] MEDS ORDERED: WATER FOR INJ (PF) 10 ML ONE (16:55)
[2017-09-14] MEDS: CATHFLO IV PRN ×2 (18:59→19:04)
[2017-09-14] MEDS ORDERED: TPN ADULT 1,800 ML IV SCH (20:00)
[2017-09-15] MEDS: NOVOLOG SUB-Q SCH ×3 (00:22→18:00)
[2017-09-15] MEDS: DUONEB *Not for PRN Use IH SCH ×4 (02:15→19:25)
[2017-09-15 05:39] LABS: Hematocrit 22.7 % (30.3-42.9); Hemoglobin 7.4 gm/dl (10.1-14.3); Mean Corpuscular HGB Conc 33 % (30-34); Mean Corpuscular Hemoglobin 29 pg (28-32); Mean Corpuscular Volume 91 fl (79-97); Platelet Count 147 K/mm3 (140-440); White Blood Count 11.7 K/mm3 (4.5-11.0)
[2017-09-15] MEDS: fentaNYL DRIP Premix 2,000 MCG/100 ML BAG IV SCH (05:43)
[2017-09-15] MEDS: LEVOPHED 8 MG in NACL 0.9% 250ML 242 ML IV SCH (05:44)
[2017-09-15 05:52] LABS: Red Cell Distribution Width 20.5 % (13.2-15.2)
[2017-09-15 05:58] LABS: Calcium 9.2 mg/dL (8.4-10.2); Magnesium 1.8 mg/dL (1.7-2.3); Phosphorous 3.2 mg/dL (2.5-4.5); Potassium 4.6 mmol/L (3.6-5.0)
[2017-09-15 06:45] LABS: Anisocytosis 1+; Blastocytes % (Manual) 0 %; Microcytosis Few
[2017-09-15 06:46] LABS: Diff Status Complete; Hypochromasia Few; Polychromasia Rare
[2017-09-15] MEDS: LEVEMIR SUB-Q SCH (09:00)
[2017-09-15] MEDS: ALBURX 25% (ALBUMIN) IV SCH (09:00)
[2017-09-15] MEDS: MYCAMINE 100 MG in NACL 0.9% 100 ML IV SCH (09:03)
[2017-09-15] MEDS: PROTONIX IV SCH (09:03)
--- NOTE | 2017-09-15 09:09 | Progress Note ---
Assessment and Plan Assessment and plan: Acute hypoxic respiratory failure on Mechanical ventilation > 96 hours continue ventilator support s/p tracheostomy on 09/09/17, had failed extubation multiple times Sepsis secondary to peritonitis, Intra abdominal abscess and Bowel obstruction Patient had completed 14 days of meropenem and diflucan, was restarted again due to fever/septic shock continue abx per ID recommendation she has had the following procedures 08/31: Ex lap with abdominal wash out and closure 08/17: Ex lap with G tube placement, EGD, abdominal wash out and removal of PD Cath Acute GI bleeding with severe acute blood loss anemia EGD showed small gastric ulcer s/p multiple transfusions GI Physician following Patient had CTA of abdomen and pelvis no active bleeding, CT Abdomen repeated , no acute findings transfuse to keep Hg above 8 given septic shock continue Protonix iv Ulcerative esophagitis/small gastric ulcer on EGD Continue iv Protonix Anemia due to acute blood loss. Hgb 7.4 today. continue to monitor. Will transfuse if hemoglobin less than 7 ESRD. Dialysis as per Nephrology. Septic shock. Still on IV pressors,Vasopressin and Levophed but is being weaned down I discussed with Nurse at bedside continue abx, ID input appreciated Arterial line placed on left upper ext on 09/13/17 Severe Protein calorie malnutrition Continue with TPN Sacral and lower extremity wound, POA continue wound care NSVT likely due to levophed, wean as tolerated cardiology input appreciated DVT prophylaxis; SCDs Not on anticoagualation because of GI bleed Disposition: continue ICU care Prognosis: guarded On Saturday09/13/17 at 9am, we had a lengthy family meeting about 30-35 mins. Those present: myself, Dr. Mcmahan, Dr. Rasmussen, Surgeon, Dr. Carvajal ID Physician, Shyanne Fink, case supervisor, and patient's family including and daughter. History Interval history: Patient with severe sepsis,septic shock, Patient still on 2 pressors, No fever Hospitalist Physical - Physical exam Narrative exam: Gen Appearance: Not in acute distress,morbidly obese HEENT: normocephalic, atraumatic Neck: supple, no JVD, Tracheostomy Lungs: Clear to auscultation, no rales, no wheezing, Heart: S1 and S2 regular, no murmurs,no rubs or gallop, Abdomen: Soft , non tender, non distended, Dressing over abdomen, G tube, bowel sounds present Extremity:Bilateral edema, no clubbing or cyanosis, Neuro : Sedated with Fentanyl - Constitutional Vitals: Temp Pulse Resp BP Pulse Ox 97.8 F 90 21 196/190 99 09/15/17 07:56 09/15/17 07:54 09/15/17 07:54 09/15/17 07:39 09/15/17 08:00 General appearance: Present: mild distress Results - Labs CBC & Chem 7: 09/15/17 05:00 09/15/17 05:00 Labs: Laboratory Last Values WBC 11.7 K/mm3 (4.5-11.0) H 09/15/17 05:00 RBC 2.50 M/mm3 (3.65-5.03) L 09/15/17 05:00 Hgb 7.4 gm/dl (10.1-14.3) L 09/15/17 05:00 Hct 22.7 % (30.3-42.9) L 09/15/17 05:00 MCV 91 fl (79-97) 09/15/17 05:00 MCH 29 pg (28-32) 09/15/17 05:00 MCHC 33 % (30-34) 09/15/17 05:00 RDW 20.5 % (13.2-15.2) H 09/15/17 05:00 Plt Count 147 K/mm3 (140-440) 09/15/17 05:00 Lymph % (Auto) Internship 08/19/17 07:37 [place] % (Auto) Internship 09/13/17 Unknown Eos % (Auto) Internship 08/19/17 07:37 Baso % (Auto) Internship 08/19/17 07:37 Lymph # Internship 08/19/17 07:37 [place] # Internship 08/19/17 07:37 Eos # Internship 08/19/17 07:37 Baso # Internship 08/19/17 07:37 Add Manual Diff Complete 09/15/17 05:00 Total Counted 100 09/15/17 05:00 Seg Neutrophils % Internship 09/08/17 04:05 Seg Neuts % (Manual) 45.0 % (40.0-70.0) 09/15/17 05:00 Band Neutrophils % 31.0 % 09/15/17 05:00 Lymphocytes % (Manual) 11.0 % (13.4-35.0) L 09/15/17 05:00 Reactive Lymphs % (Man) 0 % 09/15/17 05:00 Monocytes % (Manual) 11.0 % (0.0-7.3) H 09/15/17 05:00 Eosinophils % (Manual) 0 % (0.0-4.3) 09/13/17 Unknown Basophils % (Manual) 0 % (0.0-1.8) 09/13/17 Unknown Metamyelocytes % 2.0 % 09/15/17 05:00 Myelocytes % 0 % 09/15/17 05:00 Promyelocytes % 0 % 09/15/17 05:00 Blast Cells % 0 % 09/15/17 05:00 Nucleated RBC % Not Reportable 09/15/17 05:00 Seg Neutrophils # Internship 08/19/17 07:37 Seg Neutrophils # Man 5.3 K/mm3 (1.8-7.7) 09/15/17 05:00 Band Neutrophils # 3.6 K/mm3 09/15/17 05:00 Lymphocytes # (Manual) 1.3 K/mm3 (1.2-5.4) 09/15/17 05:00 Abs React Lymphs (Man) 0.0 K/mm3 09/15/17 05:00 Monocytes # (Manual) 1.3 K/mm3 (0.0-0.8) H 09/15/17 05:00 Eosinophils # (Manual) 0.0 K/mm3 (0.0-0.4) 09/15/17 05:00 Basophils # (Manual) 0.0 K/mm3 (0.0-0.1) 09/15/17 05:00 Metamyelocytes # 0.2 K/mm3 09/15/17 05:00 Myelocytes # 0.0 K/mm3 09/15/17 05:00 Promyelocytes # 0.0 K/mm3 09/15/17 05:00 Blast Cells # 0.0 K/mm3 09/15/17 05:00 Pathologist Review Not Reportable 08/30/17 05:20 WBC Morphology Not Reportable 09/15/17 05:00 Hypersegmented Neuts Not Reportable 09/15/17 05:00 Hyposegmented Neuts Not Reportable 09/15/17 05:00 Hypogranular Neuts Not Reportable 09/15/17 05:00 Smudge Cells Not Reportable 09/15/17 05:00 Toxic Granulation Not Reportable 09/15/17 05:00 Toxic Vacuolation Not Reportable 09/15/17 05:00 Dohle Bodies Not Reportable 09/15/17 05:00 Pelger-Huet Anomaly Not Reportable 09/15/17 05:00 Ariel Rods Not Reportable 09/15/17 05:00 Platelet Estimate Appears normal 09/15/17 05:00 Clumped Platelets Not Reportable 09/15/17 05:00 Plt Clumps, EDTA Not Reportable 09/15/17 05:00 Large Platelets Not Reportable 09/15/17 05:00 Giant Platelets Not Reportable 09/15/17 05:00 Platelet Satelliting Not Reportable 09/15/17 05:00 Plt Morphology Comment Not Reportable 09/15/17 05:00 RBC Morphology Not Reportable 09/15/17 05:00 Dimorphic RBCs Not Reportable 09/15/17 05:00 Polychromasia Rare 09/15/17 05:00 Hypochromasia Few 09/15/17 05:00 Poikilocytosis Not Reportable 09/15/17 05:00 Anisocytosis 1+ 09/15/17 05:00 Microcytosis Few 09/15/17 05:00 Macrocytosis Not Reportable 09/15/17 05:00 Spherocytes Not Reportable 09/15/17 05:00 Pappenheimer Bodies Not Reportable 09/15/17 05:00 Sickle Cells Not Reportable 09/15/17 05:00 Target Cells Not Reportable 09/15/17 05:00 Tear Drop Cells Not Reportable 09/15/17 05:00 Ovalocytes Not Reportable 09/15/17 05:00 Stomatocytes Rare 09/12/17 05:25 Helmet Cells Not Reportable 09/15/17 05:00 [place] Bodies Not Reportable 09/15/17 05:00 [place] Rings Not Reportable 09/15/17 05:00 Yusuf Cells Not Reportable 09/15/17 05:00 Bite Cells Not Reportable 09/15/17 05:00 Crenated Cell Not Reportable 09/15/17 05:00 Elliptocytes Not Reportable 09/15/17 05:00 Acanthocytes (Spur) Not Reportable 09/15/17 05:00 Rouleaux Not Reportable 09/15/17 05:00 Hemoglobin C Crystals Not Reportable 09/15/17 05:00 Schistocytes Not Reportable 09/15/17 05:00 Malaria parasites Not Reportable 09/15/17 05:00 Jovanni Bodies Not Reportable 09/15/17 05:00 Hem Pathologist Commnt No 09/15/17 05:00 PT 15.1 Sec. (12.2-14.9) H 08/31/17 18:15 INR 1.13 (0.87-1.13) 08/31/17 18:15 APTT 28.7 Sec. (24.2-36.6) 08/31/17 18:15 POC ABG pH 7.347 (7.35-7.45) L 09/13/17 11:36 ABG pH 7.323 pH Units (7.350-7.450) L 09/09/17 Unknown POC ABG pCO2 34.3 (35-45) L 09/13/17 11:36 ABG pCO2 41.1 mm Hg 09/09/17 Unknown POC ABG pO2 134 (80-105) H 09/13/17 11:36 ABG pO2 94.1 mm Hg (80.0-90.0) H 09/09/17 Unknown POC ABG HCO3 18.8 09/13/17 11:36 ABG HCO3 20.9 mmol/L (20.0-26.0) 09/09/17 Unknown POC ABG Total CO2 20 09/13/17 11:36 POC ABG O2 Sat 99 09/13/17 11:36 ABG O2 Saturation 97.2 % (95.0-99.0) 09/09/17 Unknown ABG O2 Content 10.9 (0.0-44) 09/09/17 Unknown POC ABG Base Excess -7 09/13/17 11:36 ABG Base Excess -4.8 mmol/L (-2.0-3.0) L 09/09/17 Unknown ABG Hemoglobin 8.0 gm/dl (12.0-16.0) L 09/09/17 Unknown ABG Carboxyhemoglobin 2.0 % (0.0-5.0) 09/09/17 Unknown ABG Methemoglobin 0.3 % (0.0-1.5) 09/09/17 Unknown VBG pH 7.462 (7.320-7.420) H 08/08/17 14:52 Oxyhemoglobin 94.9 % (95.0-99.0) L 09/09/17 Unknown FiO2 30 % 09/13/17 11:36 Sodium 138 mmol/L (137-145) 09/15/17 05:00 Potassium 4.6 mmol/L (3.6-5.0) 09/15/17 05:00 Chloride 97.0 mmol/L (98-107) L 09/15/17 05:00 Carbon Dioxide 21 mmol/L (22-30) L 09/15/17 05:00 Anion Gap 25 mmol/L 09/15/17 05:00 BUN 94 mg/dL (7-17) H 09/15/17 05:00 Creatinine 2.4 mg/dL (0.7-1.2) H 09/15/17 05:00 Estimated GFR 25 ml/min 09/15/17 05:00 BUN/Creatinine Ratio 39 % 09/15/17 05:00 Glucose 194 mg/dL (65-100) H 09/15/17 05:00 POC Glucose 245 (70-105) H 09/15/17 07:48 Lactic Acid 1.60 mmol/L (0.7-2.0) 08/17/17 11:20 Calcium 9.2 mg/dL (8.4-10.2) 09/15/17 05:00 Phosphorus 3.20 mg/dL (2.5-4.5) D 09/15/17 05:00 Magnesium 1.80 mg/dL (1.7-2.3) 09/15/17 05:00 Iron 22 ug/dL (37-170) L 09/12/17 05:25 TIBC 81 mcg/dL (250-450) L 09/12/17 05:25 Ferritin > 2000.0 ng/mL (13.0-400.0) H 09/12/17 05:25 Total Bilirubin 1.00 mg/dL (0.1-1.2) 09/08/17 04:05 Direct Bilirubin 0.2 mg/dL (0-0.2) 08/08/17 14:11 Indirect Bilirubin 0.3 mg/dL 08/08/17 14:11 AST 14 units/L (5-40) 09/08/17 04:05 ALT 16 units/L (7-56) 09/08/17 04:05 Alkaline Phosphatase 199 units/L (35-129) H 09/08/17 04:05 Ammonia 25.0 umol/L (25-60) 08/08/17 14:52 Troponin T 0.132 ng/mL (0.00-0.029) H* 08/09/17 13:25 C-Reactive Protein 2.80 mg/dL (0.00-1.30) H 09/06/17 05:30 NT-Pro-B Natriuret Pep 6156 pg/mL (0-900) H 08/08/17 14:11 Total Protein 4.5 g/dL (6.3-8.2) L 09/08/17 04:05 Albumin < 0.2 g/dL (3.9-5) L 09/13/17 Unknown Albumin/Globulin Ratio 0.6 % 09/08/17 04:05 Triglycerides 180 mg/dL (2-149) H 09/03/17 04:00 Cholesterol 91 mg/dL (50-199) 08/08/17 21:23 LDL Cholesterol Direct 53 mg/dL (50-130) 08/08/17 21:23 HDL Cholesterol 26 mg/dL (40-59) L 08/08/17 21:23 Cholesterol/HDL Ratio 3.50 % 08/08/17 21:23 Amylase 45 units/L (27-131) 08/16/17 09:50 Lipase 34 units/L (13-60) 08/16/17 09:50 TSH 6.580 mlU/mL (0.270-4.200) H 08/08/17 14:22 Free T4 1.46 ng/dL (0.76-1.46) 08/08/17 14:22 Total Cortisol 30.1 mcg/dL () 08/13/17 06:14 Urine Color Yellow (Yellow) 08/08/17 20:15 Urine Turbidity Turbid (Clear) 08/08/17 20:15 Urine pH 8.0 (5.0-7.0) H 08/08/17 20:15 Ur Specific [place] 1.015 (1.003-1.030) 08/08/17 20:15 Urine Protein 100 mg/dl mg/dL (Negative) 08/08/17 20:15 Urine Glucose (UA) Neg mg/dL (Negative) 08/08/17 20:15 Urine Ketones Neg mg/dL (Negative) 08/08/17 20:15 Urine Blood Mod (Negative) 08/08/17 20:15 Urine Nitrite Neg (Negative) 08/08/17 20:15 Urine Bilirubin Neg (Negative) 08/08/17 20:15 Urine Urobilinogen < 2.0 mg/dL (<2.0) 08/08/17 20:15 Ur Leukocyte Esterase Lg (Negative) 08/08/17 20:15 Urine WBC (Auto) 24.0 /HPF (0.0-6.0) H 08/08/17 20:15 Urine RBC (Auto) 3.0 /HPF (0.0-6.0) 08/08/17 20:15 U Epithel Cells (Auto) 3.0 /HPF (0-13.0) 08/08/17 20:15 Urine Bacteria (Auto) 4+ /HPF (Negative) 08/08/17 20:15 Urine Mucus 3+ /HPF 08/08/17 20:15 Fluid Type Peritoneal 08/08/17 18:18 Fluid Color Straw 08/08/17 18:18 Fluid Appearance Clear 08/08/17 18:18 Fluid pH 7.74 08/08/17 18:18 Fluid WBC 4 /mm3 08/08/17 18:18 Fluid RBC 1 /mm3 08/08/17 18:18 Fluid Seg Neutrophils 12 % 08/08/17 18:18 Fluid Lymphocytes 0 % 08/08/17 18:18 Fluid Reactive Lymphs 0 % 08/08/17 18:18 Fluid Monocytes 1 % 08/08/17 18:18 Fluid Eosinophils 0 % 08/08/17 18:18 Fluid Basophils 0 % 08/08/17 18:18 Fluid Glucose 315 mg/dL (40-70) H 08/08/17 18:18 Random Vancomycin 19.5 ug/mL (0-40.0) 08/22/17 03:40 Hep Bs Antigen Non-reactive (Negative) 08/22/17 03:40 Hepatitis C Antibody Non-reactive (NonReactive) 09/28/17 03:40 Miscellaneous Test Flexitest 1 H 09/06/17 09:57 Blood Type O POSITIVE 09/12/17 09:14 Antibody Screen Negative 09/12/17 09:14 VAN Antibody Screen Negative 09/07/17 17:07 Crossmatch See Detail 09/12/17 09:14
[2017-09-15] MEDS ORDERED: PROCRIT IV PRN (10:29)
[2017-09-15] MEDS ORDERED: NACL 0.9% 100 ML IV PRN (10:29)
--- NOTE | 2017-09-15 10:29 | Progress Note ---
Assessment and Plan ESRD - HD in am Vitals - F/u on pressors Lytes - Stable Periph Edema - UF on HD as tolerated. D/c IV Albumin which may worsen edema in this setting. Also suggest to wean Hydrocortisone gradually to d/c if possible Resp Failure - F/u vent weaning Subjective Date of service: 09/15/17 Principal diagnosis: respiratory failure, sepsis, shock rectal bleeding Objective - Vital Signs Vital signs: Vital Signs - 12hr 09/14/17 09/14/17 09/14/17 22:31 22:45 22:59 Temperature Pulse Rate 75 72 73 Pulse Rate [ Anterior Bilateral Throughout] Pulse Rate [ Apical] Respiratory 20 18 18 Rate Respiratory Rate [Anterior Bilateral Throughout] Blood Pressure O2 Sat by Pulse 100 100 100 Oximetry O2 Sat by Pulse Oximetry [ Assessment] 09/14/17 09/14/17 09/14/17 23:01 23:15 23:31 Temperature Pulse Rate 74 73 72 Pulse Rate [ Anterior Bilateral Throughout] Pulse Rate [ Apical] Respiratory 9 L 21 15 Rate Respiratory Rate [Anterior Bilateral Throughout] Blood Pressure O2 Sat by Pulse 100 100 100 Oximetry O2 Sat by Pulse Oximetry [ Assessment] 09/14/17 09/15/17 09/15/17 23:45 00:00 00:01 Temperature 99.1 F Pulse Rate 80 73 79 Pulse Rate [ Anterior Bilateral Throughout] Pulse Rate [ 82 Apical] Respiratory 17 25 H Rate Respiratory Rate [Anterior Bilateral Throughout] Blood Pressure 133/57 O2 Sat by Pulse 95 99 99 Oximetry O2 Sat by Pulse Oximetry [ Assessment] 09/15/17 09/15/17 09/15/17 00:03 00:15 00:31 Temperature Pulse Rate 96 H 71 Pulse Rate [ Anterior Bilateral Throughout] Pulse Rate [ Apical] Respiratory 14 20 Rate Respiratory Rate [Anterior Bilateral Throughout] Blood Pressure O2 Sat by Pulse 100 100 Oximetry O2 Sat by Pulse 100 Oximetry [ Assessment] 09/15/17 09/15/17 09/15/17 00:45 01:01 01:15 Temperature Pulse Rate 72 80 72 Pulse Rate [ Anterior Bilateral Throughout] Pulse Rate [ Apical] Respiratory 21 21 21 Rate Respiratory Rate [Anterior Bilateral Throughout] Blood Pressure O2 Sat by Pulse 100 94 100 Oximetry O2 Sat by Pulse Oximetry [ Assessment] 09/15/17 09/15/17 09/15/17 01:31 01:45 02:01 Temperature Pulse Rate 86 75 69 Pulse Rate [ Anterior Bilateral Throughout] Pulse Rate [ Apical] Respiratory 13 21 21 Rate Respiratory Rate [Anterior Bilateral Throughout] Blood Pressure O2 Sat by Pulse 100 100 100 Oximetry O2 Sat by Pulse Oximetry [ Assessment] 09/15/17 09/15/17 09/15/17 02:15 02:25 02:31 Temperature Pulse Rate 77 72 Pulse Rate [ 68 76 Anterior Bilateral Throughout] Pulse Rate [ Apical] Respiratory 13 20 Rate Respiratory 21 20 Rate [Anterior Bilateral Throughout] Blood Pressure O2 Sat by Pulse 100 100 Oximetry O2 Sat by Pulse Oximetry [ Assessment] 09/15/17 09/15/17 09/15/17 02:45 03:01 03:15 Temperature Pulse Rate 77 81 97 H Pulse Rate [ Anterior Bilateral Throughout] Pulse Rate [ Apical] Respiratory 25 H 12 22 Rate Respiratory Rate [Anterior Bilateral Throughout] Blood Pressure O2 Sat by Pulse 100 100 100 Oximetry O2 Sat by Pulse Oximetry [ Assessment] 09/15/17 09/15/17 09/15/17 03:31 03:45 04:00 Temperature 98.2 F Pulse Rate 100 H 96 H Pulse Rate [ Anterior Bilateral Throughout] Pulse Rate [ 79 Apical] Respiratory 21 17 Rate Respiratory Rate [Anterior Bilateral Throughout] Blood Pressure O2 Sat by Pulse 100 100 99 Oximetry O2 Sat by Pulse Oximetry [ Assessment] 09/15/17 09/15/17 09/15/17 04:01 04:15 04:31 Temperature Pulse Rate 101 H 88 83 Pulse Rate [ Anterior Bilateral Throughout] Pulse Rate [ Apical] Respiratory 16 20 22 Rate Respiratory Rate [Anterior Bilateral Throughout] Blood Pressure O2 Sat by Pulse 100 100 100 Oximetry O2 Sat by Pulse Oximetry [ Assessment] 09/15/17 09/15/17 09/15/17 04:45 05:01 05:15 Temperature Pulse Rate 84 88 78 Pulse Rate [ Anterior Bilateral Throughout] Pulse Rate [ Apical] Respiratory 22 21 21 Rate Respiratory Rate [Anterior Bilateral Throughout] Blood Pressure O2 Sat by Pulse 100 100 95 Oximetry O2 Sat by Pulse Oximetry [ Assessment] 09/15/17 09/15/17 09/15/17 05:31 05:45 06:01 Temperature Pulse Rate 82 96 H 84 Pulse Rate [ Anterior Bilateral Throughout] Pulse Rate [ Apical] Respiratory 19 15 21 Rate Respiratory Rate [Anterior Bilateral Throughout] Blood Pressure O2 Sat by Pulse 99 99 98 Oximetry O2 Sat by Pulse Oximetry [ Assessment] 09/15/17 09/15/17 09/15/17 06:15 06:31 06:45 Temperature Pulse Rate 87 84 80 Pulse Rate [ Anterior Bilateral Throughout] Pulse Rate [ Apical] Respiratory 16 22 21 Rate Respiratory Rate [Anterior Bilateral Throughout] Blood Pressure O2 Sat by Pulse 100 95 96 Oximetry O2 Sat by Pulse Oximetry [ Assessment] 09/15/17 09/15/17 09/15/17 07:01 07:15 07:31 Temperature Pulse Rate 88 78 85 Pulse Rate [ Anterior Bilateral Throughout] Pulse Rate [ Apical] Respiratory 20 21 19 Rate Respiratory Rate [Anterior Bilateral Throughout] Blood Pressure O2 Sat by Pulse 100 97 99 Oximetry O2 Sat by Pulse Oximetry [ Assessment] 09/15/17 09/15/17 09/15/17 07:39 07:44 07:54 Temperature Pulse Rate 95 H 92 H Pulse Rate [ 95 H 90 Anterior Bilateral Throughout] Pulse Rate [ Apical] Respiratory Rate Respiratory 21 21 Rate [Anterior Bilateral Throughout] Blood Pressure 196/190 O2 Sat by Pulse 100 Oximetry O2 Sat by Pulse 97 Oximetry [ Assessment] 09/15/17 09/15/17 07:56 08:00 Temperature 97.8 F Pulse Rate Pulse Rate [ Anterior Bilateral Throughout] Pulse Rate [ Apical] Respiratory Rate Respiratory Rate [Anterior Bilateral Throughout] Blood Pressure O2 Sat by Pulse 99 Oximetry O2 Sat by Pulse Oximetry [ Assessment] - General Appearance General appearance: sedated on ventilator Respiratory: Present: Other (Good air entry per vent) Cardiology: regular, S1S2 Gastrointestinal: obese, other (Periph/Subcut Edema) Musculoskeletal: other (++Periph Edema) - Lab 09/15/17 05:00 09/15/17 05:00 Most recent lab results ABG pH 7.323 pH Units (7.350-7.450) L 09/09/17 Unknown ABG pCO2 41.1 mm Hg 09/09/17 Unknown ABG pO2 94.1 mm Hg (80.0-90.0) H 09/09/17 Unknown ABG HCO3 20.9 mmol/L (20.0-26.0) 09/09/17 Unknown ABG O2 Saturation 97.2 % (95.0-99.0) 09/09/17 Unknown Calcium 9.2 mg/dL (8.4-10.2) 09/15/17 05:00 Phosphorus 3.20 mg/dL (2.5-4.5) D 09/15/17 05:00 Magnesium 1.80 mg/dL (1.7-2.3) 09/15/17 05:00
--- NOTE | 2017-09-15 11:18 | Progress Note ---
Assessment and Plan - Patient Problems (1) Severe muscle deconditioning Current Visit: Yes Status: Acute (2) ARF (acute renal failure) Current Visit: Yes Status: Acute Qualifiers: Acute renal failure type: A (3) Acute hypercapnic respiratory failure Current Visit: Yes Status: Acute (4) Acute respiratory failure with hypoxemia Current Visit: Yes Status: Acute (5) Anemia Current Visit: Yes Status: Acute Qualifiers: Anemia type: A Iron deficiency anemia type: I Vitamin B12 deficiency anemia type: V Folate deficiency anemia type: F Bone marrow failure anemia type: B Hemolytic anemia type: H Other causes of anemia: O Chronic kidney disease stage: C (6) Autonomic dysfunction Current Visit: Yes Status: Acute (7) ESRD (end stage renal disease) on dialysis Current Visit: Yes Status: Acute (8) Sepsis Current Visit: Yes Status: Acute Qualifiers: Sepsis type: S (9) Volume overload Current Visit: Yes Status: Acute Qualifiers: Hypervolemia type: H (10) Vomiting Current Visit: Yes Status: Acute Qualifiers: Vomiting type: V Vomiting Intractability: V Nausea presence: with nausea Subjective Principal diagnosis: respiratory failure, sepsis, shock rectal bleeding Interval history: surgery at bedside small bleeding vessel, pt to go to or Objective Vital Signs - 12hr 09/14/17 09/14/17 09/15/17 23:31 23:45 00:00 Temperature 99.1 F Pulse Rate 72 80 73 Pulse Rate [ Anterior Bilateral Throughout] Pulse Rate [ 82 Apical] Respiratory 15 17 Rate Respiratory Rate [Anterior Bilateral Throughout] Blood Pressure 133/57 O2 Sat by Pulse 100 95 99 Oximetry O2 Sat by Pulse Oximetry [ Assessment] 09/15/17 09/15/17 09/15/17 00:01 00:03 00:15 Temperature Pulse Rate 79 96 H Pulse Rate [ Anterior Bilateral Throughout] Pulse Rate [ Apical] Respiratory 25 H 14 Rate Respiratory Rate [Anterior Bilateral Throughout] Blood Pressure O2 Sat by Pulse 99 100 Oximetry O2 Sat by Pulse 100 Oximetry [ Assessment] 09/15/17 09/15/17 09/15/17 00:31 00:45 01:01 Temperature Pulse Rate 71 72 80 Pulse Rate [ Anterior Bilateral Throughout] Pulse Rate [ Apical] Respiratory 20 21 21 Rate Respiratory Rate [Anterior Bilateral Throughout] Blood Pressure O2 Sat by Pulse 100 100 94 Oximetry O2 Sat by Pulse Oximetry [ Assessment] 1009/15/17 09/15/17 01:15 01:31 01:45 Temperature Pulse Rate 72 86 75 Pulse Rate [ Anterior Bilateral Throughout] Pulse Rate [ Apical] Respiratory 21 13 21 Rate Respiratory Rate [Anterior Bilateral Throughout] Blood Pressure O2 Sat by Pulse 100 100 100 Oximetry O2 Sat by Pulse Oximetry [ Assessment] 09/15/17 09/15/17 09/15/17 02:01 02:15 02:25 Temperature Pulse Rate 69 77 Pulse Rate [ 68 76 Anterior Bilateral Throughout] Pulse Rate [ Apical] Respiratory 21 13 Rate Respiratory 21 20 Rate [Anterior Bilateral Throughout] Blood Pressure O2 Sat by Pulse 100 100 Oximetry O2 Sat by Pulse Oximetry [ Assessment] 09/15/17 09/15/17 09/15/17 02:31 02:45 03:01 Temperature Pulse Rate 72 77 81 Pulse Rate [ Anterior Bilateral Throughout] Pulse Rate [ Apical] Respiratory 20 25 H 12 Rate Respiratory Rate [Anterior Bilateral Throughout] Blood Pressure O2 Sat by Pulse 100 100 100 Oximetry O2 Sat by Pulse Oximetry [ Assessment] 09/15/17 09/15/17 09/15/17 03:15 03:31 03:45 Temperature Pulse Rate 97 H 100 H 96 H Pulse Rate [ Anterior Bilateral Throughout] Pulse Rate [ Apical] Respiratory 22 21 17 Rate Respiratory Rate [Anterior Bilateral Throughout] Blood Pressure O2 Sat by Pulse 100 100 100 Oximetry O2 Sat by Pulse Oximetry [ Assessment] 09/15/17 09/15/17 09/15/17 04:00 04:01 04:15 Temperature 98.2 F Pulse Rate 101 H 88 Pulse Rate [ Anterior Bilateral Throughout] Pulse Rate [ 79 Apical] Respiratory 16 20 Rate Respiratory Rate [Anterior Bilateral Throughout] Blood Pressure O2 Sat by Pulse 99 100 100 Oximetry O2 Sat by Pulse Oximetry [ Assessment] 09/15/17 09/15/17 09/15/17 04:31 04:45 05:01 Temperature Pulse Rate 83 84 88 Pulse Rate [ Anterior Bilateral Throughout] Pulse Rate [ Apical] Respiratory 22 22 21 Rate Respiratory Rate [Anterior Bilateral Throughout] Blood Pressure O2 Sat by Pulse 100 100 100 Oximetry O2 Sat by Pulse Oximetry [ Assessment] 09/15/17 09/15/17 09/15/17 05:15 05:31 05:45 Temperature Pulse Rate 78 82 96 H Pulse Rate [ Anterior Bilateral Throughout] Pulse Rate [ Apical] Respiratory 21 19 15 Rate Respiratory Rate [Anterior Bilateral Throughout] Blood Pressure O2 Sat by Pulse 95 99 99 Oximetry O2 Sat by Pulse Oximetry [ Assessment] 09/15/17 09/15/17 09/15/17 06:01 06:15 06:31 Temperature Pulse Rate 84 87 84 Pulse Rate [ Anterior Bilateral Throughout] Pulse Rate [ Apical] Respiratory 21 16 22 Rate Respiratory Rate [Anterior Bilateral Throughout] Blood Pressure O2 Sat by Pulse 98 100 95 Oximetry O2 Sat by Pulse Oximetry [ Assessment] 09/15/17 09/15/17 09/15/17 06:45 07:01 07:15 Temperature Pulse Rate 80 88 78 Pulse Rate [ Anterior Bilateral Throughout] Pulse Rate [ Apical] Respiratory 21 20 21 Rate Respiratory Rate [Anterior Bilateral Throughout] Blood Pressure O2 Sat by Pulse 96 100 97 Oximetry O2 Sat by Pulse Oximetry [ Assessment] 09/15/17 09/15/17 09/15/17 07:31 07:39 07:44 Temperature Pulse Rate 85 95 H 92 H Pulse Rate [ 95 H Anterior Bilateral Throughout] Pulse Rate [ Apical] Respiratory 19 Rate Respiratory 21 Rate [Anterior Bilateral Throughout] Blood Pressure 196/190 O2 Sat by Pulse 99 100 Oximetry O2 Sat by Pulse Oximetry [ Assessment] 09/15/17 09/15/17 09/15/17 07:45 07:54 07:56 Temperature 97.8 F Pulse Rate 102 H Pulse Rate [ 90 Anterior Bilateral Throughout] Pulse Rate [ Apical] Respiratory 15 Rate Respiratory 21 Rate [Anterior Bilateral Throughout] Blood Pressure O2 Sat by Pulse 99 Oximetry O2 Sat by Pulse 97 Oximetry [ Assessment] 09/15/17 09/15/17 09/15/17 08:00 08:01 08:15 Temperature Pulse Rate 86 80 Pulse Rate [ Anterior Bilateral Throughout] Pulse Rate [ Apical] Respiratory 21 16 Rate Respiratory Rate [Anterior Bilateral Throughout] Blood Pressure O2 Sat by Pulse 99 100 94 Oximetry O2 Sat by Pulse Oximetry [ Assessment] 09/15/17 09/15/17 09/15/17 08:31 08:45 09:01 Temperature Pulse Rate 81 86 85 Pulse Rate [ Anterior Bilateral Throughout] Pulse Rate [ Apical] Respiratory 21 20 21 Rate Respiratory Rate [Anterior Bilateral Throughout] Blood Pressure O2 Sat by Pulse 92 99 100 Oximetry O2 Sat by Pulse Oximetry [ Assessment] 09/15/17 09/15/17 09/15/17 09:15 09:31 09:45 Temperature Pulse Rate 76 74 95 H Pulse Rate [ Anterior Bilateral Throughout] Pulse Rate [ Apical] Respiratory 23 22 18 Rate Respiratory Rate [Anterior Bilateral Throughout] Blood Pressure O2 Sat by Pulse 98 98 100 Oximetry O2 Sat by Pulse Oximetry [ Assessment] 09/15/17 09/15/17 09/15/17 10:01 10:15 10:31 Temperature Pulse Rate 96 H 69 76 Pulse Rate [ Anterior Bilateral Throughout] Pulse Rate [ Apical] Respiratory 11 L 20 21 Rate Respiratory Rate [Anterior Bilateral Throughout] Blood Pressure O2 Sat by Pulse 97 100 100 Oximetry O2 Sat by Pulse Oximetry [ Assessment] 09/15/17 09/15/17 10:45 11:01 Temperature Pulse Rate 70 79 Pulse Rate [ Anterior Bilateral Throughout] Pulse Rate [ Apical] Respiratory 16 21 Rate Respiratory Rate [Anterior Bilateral Throughout] Blood Pressure O2 Sat by Pulse 100 100 Oximetry O2 Sat by Pulse Oximetry [ Assessment] Constitutional: no acute distress, alert, other (critically ill on vent, obese) Eyes: non-icteric ENT: oropharynx moist, other (NGT) Neck: supple, no lymphadenopathy, no JVD (large neck), other (trach in position , no bleeding) Effort: mildly labored Ascultation: Bilateral: clear ( ), diminished breath sounds (Limited expansion) , wheezes (faint expiratory wheezes), rhonchi (bilateral), other (coarse BS bilaterally) Cardiovascular: regular rate and rhythm Gastrointestinal: absent bowel sounds, non-tender, other (abdominal incision with dressing noted, obese. Drain in place , bleeding noted) Integumentary: normal Extremities: no cyanosis, pink and warm, edema (2+ bilateral LE edema) Neurologic: non-focal exam, pupils equal and round, other (RA SS -0) Psychiatric: mood appropriate, affect normal CBC and BMP: 09/15/17 05:00 09/15/17 05:00 ABG, PT/INR, D-dimer: ABG POC ABG pH 7.347 (7.35-7.45) L 09/13/17 11:36 ABG pH 7.323 pH Units (7.350-7.450) L 09/09/17 Unknown POC ABG pCO2 34.3 (35-45) L 09/13/17 11:36 ABG pCO2 41.1 mm Hg 09/09/17 Unknown POC ABG pO2 134 (80-105) H 09/13/17 11:36 ABG pO2 94.1 mm Hg (80.0-90.0) H 09/09/17 Unknown POC ABG HCO3 18.8 09/13/17 11:36 POC ABG Total CO2 20 09/13/17 11:36 POC ABG O2 Sat 99 09/13/17 11:36 ABG O2 Saturation 97.2 % (95.0-99.0) 09/09/17 Unknown PT/INR, D-dimer PT 15.1 Sec. (12.2-14.9) H 08/31/17 18:15 INR 1.13 (0.87-1.13) 08/31/17 18:15 Abnormal lab findings: Abnormal Labs 08/08/17 08/08/17 08/09/17 21:23 21:31 11:19 WBC 15.7 H RBC 2.93 L Hgb 8.7 L Hct 26.8 L MCV MCH RDW 19.2 H Plt Count Lymph % (Auto) [place] % (Auto) [place] # Seg Neutrophils % Seg Neuts % (Manual) Lymphocytes % (Manual) Monocytes % (Manual) Nucleated RBC % Seg Neutrophils # Seg Neutrophils # Man Lymphocytes # (Manual) Monocytes # (Manual) Eosinophils # (Manual) Basophils # (Manual) PT INR POC ABG pH 7.490 H ABG pH POC ABG pCO2 POC ABG pO2 122 H ABG pO2 ABG O2 Saturation ABG Base Excess ABG Hemoglobin Oxyhemoglobin Sodium Potassium Chloride Carbon Dioxide BUN Creatinine Glucose POC Glucose Calcium Phosphorus Magnesium Iron TIBC Ferritin AST ALT Alkaline Phosphatase Troponin T 0.133 H* C-Reactive Protein Total Protein Albumin Triglycerides HDL Cholesterol 26 L Miscellaneous Test Crossmatch 08/09/17 08/10/17 08/10/17 13:25 04:45 04:45 WBC 15.5 H RBC 2.97 L Hgb 8.9 L Hct 27.0 L MCV MCH RDW 19.2 H Plt Count Lymph % (Auto) [place] % (Auto) [place] # Seg Neutrophils % Seg Neuts % (Manual) 73.0 H Lymphocytes % (Manual) 7.0 L Monocytes % (Manual) 14.0 H Nucleated RBC % Seg Neutrophils # Seg Neutrophils # Man 11.3 H Lymphocytes # (Manual) 1.1 L Monocytes # (Manual) 2.2 H Eosinophils # (Manual) Basophils # (Manual) 0.2 H PT INR POC ABG pH ABG pH POC ABG pCO2 POC ABG pO2 ABG pO2 ABG O2 Saturation ABG Base Excess ABG Hemoglobin Oxyhemoglobin Sodium Potassium 3.3 L Chloride 97.3 L Carbon Dioxide 21 L BUN 23 H Creatinine 6.5 H Glucose POC Glucose Calcium 7.3 L Phosphorus Magnesium Iron TIBC Ferritin AST ALT Alkaline Phosphatase 138 H Troponin T 0.132 H* C-Reactive Protein Total Protein 4.8 L Albumin 1.4 L Triglycerides HDL Cholesterol Miscellaneous Test Crossmatch 08/11/17 08/11/17 08/12/17 04:00 04:00 05:50 WBC 19.3 H RBC 3.10 L Hgb 9.5 L Hct 28.2 L MCV MCH RDW 19.2 H Plt Count 463 H Lymph % (Auto) 7.5 L [place] % (Auto) 14.6 H [place] # 2.8 H Seg Neutrophils % 77.0 H Seg Neuts % (Manual) Lymphocytes % (Manual) Monocytes % (Manual) Nucleated RBC % Seg Neutrophils # 14.8 H Seg Neutrophils # Man Lymphocytes # (Manual) Monocytes # (Manual) Eosinophils # (Manual) Basophils # (Manual) PT INR POC ABG pH ABG pH POC ABG pCO2 POC ABG pO2 ABG pO2 ABG O2 Saturation ABG Base Excess ABG Hemoglobin Oxyhemoglobin Sodium 136 L 136 L Potassium 3.3 L Chloride 96.3 L 96.6 L Carbon Dioxide BUN 26 H 26 H Creatinine 6.4 H 6.2 H Glucose 135 H 133 H POC Glucose Calcium 8.2 L Phosphorus Magnesium 1.30 L Iron TIBC Ferritin AST ALT Alkaline Phosphatase 139 H Troponin T C-Reactive Protein Total Protein 5.5 L Albumin 1.7 L Triglycerides HDL Cholesterol Miscellaneous Test Crossmatch 08/12/17 08/12/17 08/12/17 05:50 05:50 05:50 WBC 20.1 H RBC 3.06 L Hgb 9.3 L Hct 27.9 L MCV MCH RDW 18.4 H Plt Count 471 H Lymph % (Auto) [place] % (Auto) [place] # Seg Neutrophils % Seg Neuts % (Manual) 85.0 H Lymphocytes % (Manual) 8.0 L Monocytes % (Manual) Nucleated RBC % Seg Neutrophils # Seg Neutrophils # Man 17.1 H Lymphocytes # (Manual) Monocytes # (Manual) 1.0 H Eosinophils # (Manual) Basophils # (Manual) PT 15.2 H INR 1.14 H POC ABG pH ABG pH POC ABG pCO2 POC ABG pO2 ABG pO2 ABG O2 Saturation ABG Base Excess ABG Hemoglobin Oxyhemoglobin Sodium Potassium Chloride Carbon Dioxide BUN Creatinine Glucose POC Glucose Calcium Phosphorus Magnesium Iron TIBC Ferritin AST ALT Alkaline Phosphatase Troponin T C-Reactive Protein 28.90 H Total Protein Albumin Triglycerides HDL Cholesterol Miscellaneous Test Crossmatch 08/12/17 08/13/17 08/13/17 16:23 06:14 06:14 WBC 21.8 H RBC 3.11 L Hgb 9.4 L Hct 28.2 L MCV MCH RDW 18.2 H Plt Count 492 H Lymph % (Auto) [place] % (Auto) [place] # Seg Neutrophils % Seg Neuts % (Manual) 73.0 H Lymphocytes % (Manual) 2.0 L Monocytes % (Manual) 15 H Nucleated RBC % Seg Neutrophils # Seg Neutrophils # Man 15.9 H Lymphocytes # (Manual) 0.4 L Monocytes # (Manual) 2.4 H Eosinophils # (Manual) Basophils # (Manual) PT INR POC ABG pH ABG pH POC ABG pCO2 POC ABG pO2 ABG pO2 ABG O2 Saturation ABG Base Excess ABG Hemoglobin Oxyhemoglobin Sodium Potassium Chloride 96.2 L Carbon Dioxide BUN 28 H Creatinine 5.6 H Glucose 114 H POC Glucose Calcium Phosphorus Magnesium Iron TIBC Ferritin AST ALT Alkaline Phosphatase Troponin T C-Reactive Protein 26.10 H Total Protein Albumin Triglycerides HDL Cholesterol Miscellaneous Test Crossmatch 08/13/17 08/14/17 08/14/17 16:39 04:00 04:00 WBC 22.1 H RBC 3.25 L Hgb 9.9 L Hct 29.5 L MCV MCH RDW 17.9 H Plt Count 525 H Lymph % (Auto) [place] % (Auto) [place] # Seg Neutrophils % Seg Neuts % (Manual) 74.0 H Lymphocytes % (Manual) 8.0 L Monocytes % (Manual) 12.0 H Nucleated RBC % Seg Neutrophils # Seg Neutrophils # Man 16.4 H Lymphocytes # (Manual) Monocytes # (Manual) 2.7 H Eosinophils # (Manual) Basophils # (Manual) PT INR POC ABG pH ABG pH POC ABG pCO2 POC ABG pO2 ABG pO2 ABG O2 Saturation ABG Base Excess ABG Hemoglobin Oxyhemoglobin Sodium 134 L Potassium 3.3 L Chloride 93.3 L Carbon Dioxide BUN 27 H Creatinine 6.0 H Glucose 152 H POC Glucose 151 H Calcium Phosphorus Magnesium Iron TIBC Ferritin AST ALT Alkaline Phosphatase Troponin T C-Reactive Protein Total Protein Albumin Triglycerides HDL Cholesterol Miscellaneous Test Crossmatch 08/15/17 08/16/17 08/16/17 09:10 09:50 09:50 WBC 31.1 H RBC 3.21 L Hgb 9.6 L Hct 29.3 L MCV MCH RDW 18.1 H Plt Count 642 H Lymph % (Auto) [place] % (Auto) [place] # Seg Neutrophils % Seg Neuts % (Manual) 74.0 H Lymphocytes % (Manual) 4.0 L Monocytes % (Manual) 9.0 H Nucleated RBC % Seg Neutrophils # Seg Neutrophils # Man 23.0 H Lymphocytes # (Manual) Monocytes # (Manual) 2.8 H Eosinophils # (Manual) Basophils # (Manual) PT INR POC ABG pH ABG pH POC ABG pCO2 POC ABG pO2 ABG pO2 ABG O2 Saturation ABG Base Excess ABG Hemoglobin Oxyhemoglobin Sodium 136 L 136 L Potassium 3.5 L Chloride 97.6 L 94.9 L Carbon Dioxide BUN 27 H 28 H Creatinine 5.6 H 5.5 H Glucose 117 H 103 H POC Glucose Calcium Phosphorus Magnesium Iron TIBC Ferritin AST ALT Alkaline Phosphatase 137 H Troponin T C-Reactive Protein Total Protein 5.4 L Albumin 1.5 L Triglycerides HDL Cholesterol Miscellaneous Test Crossmatch 08/16/17 08/17/17 08/17/17 09:50 05:00 06:26 WBC RBC Hgb Hct MCV MCH RDW Plt Count Lymph % (Auto) [place] % (Auto) [place] # Seg Neutrophils % Seg Neuts % (Manual) Lymphocytes % (Manual) Monocytes % (Manual) Nucleated RBC % Seg Neutrophils # Seg Neutrophils # Man Lymphocytes # (Manual) Monocytes # (Manual) Eosinophils # (Manual) Basophils # (Manual) PT INR POC ABG pH ABG pH POC ABG pCO2 POC ABG pO2 ABG pO2 ABG O2 Saturation ABG Base Excess ABG Hemoglobin Oxyhemoglobin Sodium 134 L Potassium 3.0 L Chloride 97.8 L Carbon Dioxide BUN 30 H Creatinine 5.3 H Glucose 147 H POC Glucose 165 H Calcium 7.5 L Phosphorus Magnesium Iron TIBC Ferritin AST ALT Alkaline Phosphatase Troponin T C-Reactive Protein 32.30 H Total Protein Albumin Triglycerides HDL Cholesterol Miscellaneous Test Crossmatch 08/17/17 08/17/17 08/17/17 10:56 11:20 11:20 WBC 39.1 H RBC 3.10 L Hgb 9.2 L Hct 28.6 L MCV MCH RDW 18.3 H Plt Count 580 H Lymph % (Auto) [place] % (Auto) [place] # Seg Neutrophils % Seg Neuts % (Manual) 89.5 H Lymphocytes % (Manual) 3.5 L Monocytes % (Manual) Nucleated RBC % Seg Neutrophils # Seg Neutrophils # Man 35.0 H Lymphocytes # (Manual) Monocytes # (Manual) 2.5 H Eosinophils # (Manual) Basophils # (Manual) 0.2 H PT INR POC ABG pH 7.464 H ABG pH POC ABG pCO2 34.1 L POC ABG pO2 75 L ABG pO2 ABG O2 Saturation ABG Base Excess ABG Hemoglobin Oxyhemoglobin Sodium Potassium Chloride Carbon Dioxide BUN Creatinine Glucose POC Glucose Calcium Phosphorus Magnesium Iron TIBC Ferritin AST ALT Alkaline Phosphatase Troponin T C-Reactive Protein Total Protein Albumin Triglycerides HDL Cholesterol Miscellaneous Test Flexitest 1 H Crossmatch 08/17/17 08/17/17 08/17/17 11:20 16:57 20:20 WBC 34.4 H RBC 2.81 L Hgb 8.4 L Hct 26.0 L MCV MCH RDW 17.8 H Plt Count 455 H Lymph % (Auto) [place] % (Auto) [place] # Seg Neutrophils % Seg Neuts % (Manual) Lymphocytes % (Manual) 3.5 L Monocytes % (Manual) Nucleated RBC % 5.0 H Seg Neutrophils # Seg Neutrophils # Man 16.5 H Lymphocytes # (Manual) Monocytes # (Manual) 1.0 H Eosinophils # (Manual) Basophils # (Manual) PT 16.0 H INR 1.29 H POC ABG pH ABG pH POC ABG pCO2 POC ABG pO2 ABG pO2 ABG O2 Saturation ABG Base Excess ABG Hemoglobin Oxyhemoglobin Sodium 135 L Potassium 2.9 L* Chloride Carbon Dioxide 20 L BUN 32 H Creatinine 5.4 H Glucose 129 H POC Glucose Calcium 7.5 L Phosphorus Magnesium 1.50 L Iron TIBC Ferritin AST 85 H ALT Alkaline Phosphatase Troponin T C-Reactive Protein Total Protein 4.0 L D Albumin 1.6 L Triglycerides HDL Cholesterol Miscellaneous Test Crossmatch 08/17/17 08/17/17 08/18/17 20:54 23:47 04:26 WBC RBC Hgb Hct MCV MCH RDW Plt Count Lymph % (Auto) [place] % (Auto) [place] # Seg Neutrophils % Seg Neuts % (Manual) Lymphocytes % (Manual) Monocytes % (Manual) Nucleated RBC % Seg Neutrophils # Seg Neutrophils # Man Lymphocytes # (Manual) Monocytes # (Manual) Eosinophils # (Manual) Basophils # (Manual) PT INR POC ABG pH 7.557 H ABG pH POC ABG pCO2 23.1 L 29.0 L POC ABG pO2 187 H 148 H ABG pO2 ABG O2 Saturation ABG Base Excess ABG Hemoglobin Oxyhemoglobin Sodium Potassium Chloride Carbon Dioxide BUN Creatinine Glucose POC Glucose 188 H Calcium Phosphorus Magnesium Iron TIBC Ferritin AST ALT Alkaline Phosphatase Troponin T C-Reactive Protein Total Protein Albumin Triglycerides HDL Cholesterol Miscellaneous Test Crossmatch 08/18/17 08/18/17 08/18/17 05:51 11:44 17:07 WBC RBC Hgb Hct MCV MCH RDW Plt Count Lymph % (Auto) [place] % (Auto) [place] # Seg Neutrophils % Seg Neuts % (Manual) Lymphocytes % (Manual) Monocytes % (Manual) Nucleated RBC % Seg Neutrophils # Seg Neutrophils # Man Lymphocytes # (Manual) Monocytes # (Manual) Eosinophils # (Manual) Basophils # (Manual) PT INR POC ABG pH ABG pH POC ABG pCO2 POC ABG pO2 ABG pO2 ABG O2 Saturation ABG Base Excess ABG Hemoglobin Oxyhemoglobin Sodium Potassium Chloride Carbon Dioxide BUN Creatinine Glucose POC Glucose 202 H 195 H 182 H Calcium Phosphorus Magnesium Iron TIBC Ferritin AST ALT Alkaline Phosphatase Troponin T C-Reactive Protein Total Protein Albumin Triglycerides HDL Cholesterol Miscellaneous Test Crossmatch 08/18/17 08/18/17 08/18/17 23:45 Unknown Unknown WBC 39.0 H RBC 2.84 L Hgb 8.4 L Hct 26.5 L MCV MCH RDW 18.0 H Plt Count 476 H Lymph % (Auto) [place] % (Auto) [place] # Seg Neutrophils % Seg Neuts % (Manual) Lymphocytes % (Manual) 7.0 L Monocytes % (Manual) 10.0 H Nucleated RBC % 3.0 H Seg Neutrophils # Seg Neutrophils # Man 15.6 H Lymphocytes # (Manual) Monocytes # (Manual) 3.9 H Eosinophils # (Manual) Basophils # (Manual) PT INR POC ABG pH ABG pH POC ABG pCO2 POC ABG pO2 ABG pO2 ABG O2 Saturation ABG Base Excess ABG Hemoglobin Oxyhemoglobin Sodium Potassium Chloride Carbon Dioxide 19 L BUN 34 H Creatinine 5.6 H Glucose 201 H POC Glucose 163 H Calcium 7.8 L Phosphorus 1.90 L D Magnesium 1.60 L Iron TIBC Ferritin AST ALT Alkaline Phosphatase Troponin T C-Reactive Protein Total Protein Albumin Triglycerides HDL Cholesterol Miscellaneous Test Crossmatch 08/19/17 08/19/17 08/19/17 04:18 05:00 05:00 WBC 40.0 H RBC 2.46 L Hgb 7.3 L Hct 22.6 L MCV MCH RDW 18.1 H Plt Count Lymph % (Auto) [place] % (Auto) [place] # Seg Neutrophils % Seg Neuts % (Manual) Lymphocytes % (Manual) 8.0 L Monocytes % (Manual) Nucleated RBC % 2.0 H Seg Neutrophils # Seg Neutrophils # Man 16.4 H Lymphocytes # (Manual) Monocytes # (Manual) 1.2 H Eosinophils # (Manual) 1.2 H Basophils # (Manual) PT INR POC ABG pH 7.463 H ABG pH POC ABG pCO2 29.7 L POC ABG pO2 134 H ABG pO2 ABG O2 Saturation ABG Base Excess ABG Hemoglobin Oxyhemoglobin Sodium Potassium 5.1 H D Chloride Carbon Dioxide 20 L BUN 40 H Creatinine 5.3 H Glucose 128 H POC Glucose Calcium 7.8 L Phosphorus 1.90 L Magnesium Iron TIBC Ferritin AST ALT Alkaline Phosphatase Troponin T C-Reactive Protein Total Protein Albumin Triglycerides HDL Cholesterol Miscellaneous Test Crossmatch 08/19/17 08/19/17 08/19/17 05:19 07:37 09:52 WBC 45.0 H* RBC 2.50 L Hgb 7.5 L Hct 24.5 L MCV 98 H MCH RDW 18.4 H Plt Count Lymph % (Auto) [place] % (Auto) [place] # Seg Neutrophils % Seg Neuts % (Manual) 81.5 H Lymphocytes % (Manual) 4.0 L Monocytes % (Manual) Nucleated RBC % 1.0 H Seg Neutrophils # Seg Neutrophils # Man 36.7 H Lymphocytes # (Manual) Monocytes # (Manual) Eosinophils # (Manual) Basophils # (Manual) PT INR POC ABG pH ABG pH POC ABG pCO2 POC ABG pO2 ABG pO2 ABG O2 Saturation ABG Base Excess ABG Hemoglobin Oxyhemoglobin Sodium Potassium Chloride Carbon Dioxide BUN Creatinine Glucose POC Glucose 142 H Calcium Phosphorus Magnesium Iron TIBC Ferritin AST ALT Alkaline Phosphatase Troponin T C-Reactive Protein 34.20 H Total Protein Albumin Triglycerides HDL Cholesterol Miscellaneous Test Crossmatch 08/19/17 08/19/17 08/20/17 11:16 18:12 00:35 WBC RBC Hgb Hct MCV MCH RDW Plt Count Lymph % (Auto) [place] % (Auto) [place] # Seg Neutrophils % Seg Neuts % (Manual) Lymphocytes % (Manual) Monocytes % (Manual) Nucleated RBC % Seg Neutrophils # Seg Neutrophils # Man Lymphocytes # (Manual) Monocytes # (Manual) Eosinophils # (Manual) Basophils # (Manual) PT INR POC ABG pH ABG pH POC ABG pCO2 POC ABG pO2 ABG pO2 ABG O2 Saturation ABG Base Excess ABG Hemoglobin Oxyhemoglobin Sodium Potassium Chloride Carbon Dioxide BUN Creatinine Glucose POC Glucose 143 H 137 H 164 H Calcium Phosphorus Magnesium Iron TIBC Ferritin AST ALT Alkaline Phosphatase Troponin T C-Reactive Protein Total Protein Albumin Triglycerides HDL Cholesterol Miscellaneous Test Crossmatch 08/20/17 08/20/17 08/20/17 03:20 03:20 04:00 WBC 48.0 H* RBC 2.55 L Hgb 7.6 L Hct 23.4 L MCV MCH RDW 18.4 H Plt Count Lymph % (Auto) [place] % (Auto) [place] # Seg Neutrophils % Seg Neuts % (Manual) 90.0 H Lymphocytes % (Manual) 3.0 L Monocytes % (Manual) Nucleated RBC % Seg Neutrophils # Seg Neutrophils # Man 43.2 H Lymphocytes # (Manual) Monocytes # (Manual) 1.4 H Eosinophils # (Manual) 0.5 H Basophils # (Manual) PT INR POC ABG pH 7.499 H ABG pH POC ABG pCO2 29.1 L POC ABG pO2 ABG pO2 ABG O2 Saturation ABG Base Excess ABG Hemoglobin Oxyhemoglobin Sodium 135 L Potassium Chloride Carbon Dioxide BUN 28 H Creatinine 4.0 H Glucose 140 H POC Glucose Calcium 8.0 L Phosphorus 1.70 L Magnesium 1.60 L Iron TIBC Ferritin AST ALT Alkaline Phosphatase Troponin T C-Reactive Protein Total Protein Albumin Triglycerides HDL Cholesterol Miscellaneous Test Crossmatch 08/20/17 08/20/17 08/20/17 05:02 12:05 13:12 WBC RBC Hgb Hct MCV MCH RDW Plt Count Lymph % (Auto) [place] % (Auto) [place] # Seg Neutrophils % Seg Neuts % (Manual) Lymphocytes % (Manual) Monocytes % (Manual) Nucleated RBC % Seg Neutrophils # Seg Neutrophils # Man Lymphocytes # (Manual) Monocytes # (Manual) Eosinophils # (Manual) Basophils # (Manual) PT INR POC ABG pH 7.537 H ABG pH POC ABG pCO2 27.9 L POC ABG pO2 79 L ABG pO2 ABG O2 Saturation ABG Base Excess ABG Hemoglobin Oxyhemoglobin Sodium Potassium Chloride Carbon Dioxide BUN Creatinine Glucose POC Glucose 158 H 203 H Calcium Phosphorus Magnesium Iron TIBC Ferritin AST ALT Alkaline Phosphatase Troponin T C-Reactive Protein Total Protein Albumin Triglycerides HDL Cholesterol Miscellaneous Test Crossmatch 08/20/17 08/21/17 08/21/17 17:13 00:47 03:14 WBC RBC Hgb Hct MCV MCH RDW Plt Count Lymph % (Auto) [place] % (Auto) [place] # Seg Neutrophils % Seg Neuts % (Manual) Lymphocytes % (Manual) Monocytes % (Manual) Nucleated RBC % Seg Neutrophils # Seg Neutrophils # Man Lymphocytes # (Manual) Monocytes # (Manual) Eosinophils # (Manual) Basophils # (Manual) PT INR POC ABG pH 7.481 H ABG pH POC ABG pCO2 29.6 L POC ABG pO2 ABG pO2 ABG O2 Saturation ABG Base Excess ABG Hemoglobin Oxyhemoglobin Sodium Potassium Chloride Carbon Dioxide BUN Creatinine Glucose POC Glucose 188 H 109 H Calcium Phosphorus Magnesium Iron TIBC Ferritin AST ALT Alkaline Phosphatase Troponin T C-Reactive Protein Total Protein Albumin Triglycerides HDL Cholesterol Miscellaneous Test Crossmatch 08/21/17 08/21/17 08/21/17 05:05 06:50 06:50 WBC 44.7 H* RBC 2.41 L Hgb 7.1 L Hct 22.1 L MCV MCH RDW 18.3 H Plt Count Lymph % (Auto) [place] % (Auto) [place] # Seg Neutrophils % Seg Neuts % (Manual) 89.0 H Lymphocytes % (Manual) 0 L Monocytes % (Manual) Nucleated RBC % 1.0 H Seg Neutrophils # Seg Neutrophils # Man 39.8 H Lymphocytes # (Manual) 0.0 L Monocytes # (Manual) 1.3 H Eosinophils # (Manual) Basophils # (Manual) PT INR POC ABG pH ABG pH POC ABG pCO2 POC ABG pO2 ABG pO2 ABG O2 Saturation ABG Base Excess ABG Hemoglobin Oxyhemoglobin Sodium 135 L Potassium Chloride Carbon Dioxide BUN 39 H Creatinine 4.4 H Glucose 147 H POC Glucose 166 H Calcium 8.1 L Phosphorus Magnesium Iron TIBC Ferritin AST ALT < 5 L Alkaline Phosphatase 164 H Troponin T C-Reactive Protein Total Protein 4.7 L Albumin 1.4 L Triglycerides HDL Cholesterol Miscellaneous Test Crossmatch 08/21/17 08/21/17 08/21/17 08:00 12:21 17:02 WBC RBC Hgb Hct MCV MCH RDW Plt Count Lymph % (Auto) [place] % (Auto) [place] # Seg Neutrophils % Seg Neuts % (Manual) Lymphocytes % (Manual) Monocytes % (Manual) Nucleated RBC % Seg Neutrophils # Seg Neutrophils # Man Lymphocytes # (Manual) Monocytes # (Manual) Eosinophils # (Manual) Basophils # (Manual) PT INR POC ABG pH ABG pH POC ABG pCO2 POC ABG pO2 ABG pO2 ABG O2 Saturation ABG Base Excess ABG Hemoglobin Oxyhemoglobin Sodium Potassium Chloride Carbon Dioxide BUN Creatinine Glucose POC Glucose 147 H 135 H Calcium Phosphorus Magnesium Iron TIBC Ferritin AST ALT Alkaline Phosphatase Troponin T C-Reactive Protein Total Protein Albumin Triglycerides HDL Cholesterol Miscellaneous Test Crossmatch See Detail 08/21/17 08/22/17 08/22/17 23:38 03:40 03:40 WBC 42.5 H* RBC 2.88 L Hgb 8.5 L Hct 26.3 L MCV MCH RDW 17.9 H Plt Count Lymph % (Auto) [place] % (Auto) [place] # Seg Neutrophils % Seg Neuts % (Manual) Lymphocytes % (Manual) 5.0 L Monocytes % (Manual) Nucleated RBC % Seg Neutrophils # Seg Neutrophils # Man 19.6 H Lymphocytes # (Manual) Monocytes # (Manual) 2.6 H Eosinophils # (Manual) Basophils # (Manual) PT INR POC ABG pH ABG pH POC ABG pCO2 POC ABG pO2 ABG pO2 ABG O2 Saturation ABG Base Excess ABG Hemoglobin Oxyhemoglobin Sodium Potassium 3.3 L D Chloride Carbon Dioxide BUN 27 H Creatinine 2.9 H Glucose 144 H POC Glucose 251 H Calcium 8.0 L Phosphorus 2.40 L Magnesium Iron TIBC Ferritin AST ALT Alkaline Phosphatase Troponin T C-Reactive Protein Total Protein Albumin Triglycerides HDL Cholesterol Miscellaneous Test Crossmatch 08/22/17 08/22/17 08/22/17 06:37 08:50 11:25 WBC RBC Hgb Hct MCV MCH RDW Plt Count Lymph % (Auto) [place] % (Auto) [place] # Seg Neutrophils % Seg Neuts % (Manual) Lymphocytes % (Manual) Monocytes % (Manual) Nucleated RBC % Seg Neutrophils # Seg Neutrophils # Man Lymphocytes # (Manual) Monocytes # (Manual) Eosinophils # (Manual) Basophils # (Manual) PT INR POC ABG pH ABG pH POC ABG pCO2 POC ABG pO2 ABG pO2 ABG O2 Saturation ABG Base Excess ABG Hemoglobin Oxyhemoglobin Sodium Potassium Chloride Carbon Dioxide BUN Creatinine Glucose POC Glucose 152 H 175 H Calcium Phosphorus Magnesium Iron TIBC Ferritin AST ALT Alkaline Phosphatase Troponin T C-Reactive Protein Total Protein Albumin Triglycerides HDL Cholesterol Miscellaneous Test Flexitest 1 H Crossmatch 08/22/17 08/22/17 08/22/17 16:25 17:56 23:03 WBC RBC Hgb Hct MCV MCH RDW Plt Count Lymph % (Auto) [place] % (Auto) [place] # Seg Neutrophils % Seg Neuts % (Manual) Lymphocytes % (Manual) Monocytes % (Manual) Nucleated RBC % Seg Neutrophils # Seg Neutrophils # Man Lymphocytes # (Manual) Monocytes # (Manual) Eosinophils # (Manual) Basophils # (Manual) PT INR POC ABG pH ABG pH POC ABG pCO2 POC ABG pO2 ABG pO2 ABG O2 Saturation ABG Base Excess ABG Hemoglobin Oxyhemoglobin Sodium Potassium Chloride Carbon Dioxide BUN Creatinine Glucose POC Glucose 232 H 192 H Calcium Phosphorus Magnesium Iron TIBC Ferritin AST ALT Alkaline Phosphatase Troponin T C-Reactive Protein 30.70 H Total Protein Albumin Triglycerides HDL Cholesterol Miscellaneous Test Crossmatch 08/23/17 08/23/17 08/23/17 05:36 08:50 12:14 WBC RBC Hgb Hct MCV MCH RDW Plt Count Lymph % (Auto) [place] % (Auto) [place] # Seg Neutrophils % Seg Neuts % (Manual) Lymphocytes % (Manual) Monocytes % (Manual) Nucleated RBC % Seg Neutrophils # Seg Neutrophils # Man Lymphocytes # (Manual) Monocytes # (Manual) Eosinophils # (Manual) Basophils # (Manual) PT INR POC ABG pH ABG pH POC ABG pCO2 POC ABG pO2 ABG pO2 ABG O2 Saturation ABG Base Excess ABG Hemoglobin Oxyhemoglobin Sodium Potassium Chloride 107.1 H Carbon Dioxide BUN 49 H Creatinine 3.3 H Glucose 172 H POC Glucose 206 H 238 H Calcium Phosphorus Magnesium 2.40 H Iron TIBC Ferritin AST ALT Alkaline Phosphatase Troponin T C-Reactive Protein Total Protein Albumin Triglycerides HDL Cholesterol Miscellaneous Test Crossmatch 08/23/17 08/23/17 08/24/17 17:21 23:13 04:00 WBC 34.2 H RBC 2.86 L Hgb 8.4 L Hct 25.9 L MCV MCH RDW 17.9 H Plt Count Lymph % (Auto) [place] % (Auto) [place] # Seg Neutrophils % Seg Neuts % (Manual) 85.0 H Lymphocytes % (Manual) 0.5 L Monocytes % (Manual) Nucleated RBC % 1.0 H Seg Neutrophils # Seg Neutrophils # Man 29.1 H Lymphocytes # (Manual) 0.2 L Monocytes # (Manual) 2.4 H Eosinophils # (Manual) Basophils # (Manual) PT INR POC ABG pH ABG pH POC ABG pCO2 POC ABG pO2 ABG pO2 ABG O2 Saturation ABG Base Excess ABG Hemoglobin Oxyhemoglobin Sodium Potassium Chloride Carbon Dioxide BUN Creatinine Glucose POC Glucose 226 H 183 H Calcium Phosphorus Magnesium Iron TIBC Ferritin AST ALT Alkaline Phosphatase Troponin T C-Reactive Protein Total Protein Albumin Triglycerides HDL Cholesterol Miscellaneous Test Crossmatch 08/24/17 08/24/17 08/24/17 05:06 09:30 12:04 WBC RBC Hgb Hct MCV MCH RDW Plt Count Lymph % (Auto) [place] % (Auto) [place] # Seg Neutrophils % Seg Neuts % (Manual) Lymphocytes % (Manual) Monocytes % (Manual) Nucleated RBC % Seg Neutrophils # Seg Neutrophils # Man Lymphocytes # (Manual) Monocytes # (Manual) Eosinophils # (Manual) Basophils # (Manual) PT INR POC ABG pH ABG pH POC ABG pCO2 POC ABG pO2 ABG pO2 ABG O2 Saturation ABG Base Excess ABG Hemoglobin Oxyhemoglobin Sodium Potassium Chloride Carbon Dioxide BUN 46 H Creatinine 2.5 H Glucose 176 H POC Glucose 201 H 181 H Calcium Phosphorus Magnesium Iron TIBC Ferritin AST ALT Alkaline Phosphatase Troponin T C-Reactive Protein Total Protein Albumin Triglycerides HDL Cholesterol Miscellaneous Test Crossmatch 08/24/17 08/24/17 08/25/17 18:04 23:05 05:05 WBC RBC Hgb Hct MCV MCH RDW Plt Count Lymph % (Auto) [place] % (Auto) [place] # Seg Neutrophils % Seg Neuts % (Manual) Lymphocytes % (Manual) Monocytes % (Manual) Nucleated RBC % Seg Neutrophils # Seg Neutrophils # Man Lymphocytes # (Manual) Monocytes # (Manual) Eosinophils # (Manual) Basophils # (Manual) PT INR POC ABG pH ABG pH POC ABG pCO2 POC ABG pO2 ABG pO2 ABG O2 Saturation ABG Base Excess ABG Hemoglobin Oxyhemoglobin Sodium Potassium Chloride Carbon Dioxide BUN Creatinine Glucose POC Glucose 189 H 175 H 190 H Calcium Phosphorus Magnesium Iron TIBC Ferritin AST ALT Alkaline Phosphatase Troponin T C-Reactive Protein Total Protein Albumin Triglycerides HDL Cholesterol Miscellaneous Test Crossmatch 08/25/17 08/25/17 08/26/17 07:02 11:53 05:30 WBC 33.5 H RBC 2.47 L Hgb 7.3 L Hct 23.0 L MCV MCH RDW 21.3 H Plt Count Lymph % (Auto) [place] % (Auto) [place] # Seg Neutrophils % Seg Neuts % (Manual) 92.0 H Lymphocytes % (Manual) 1.0 L Monocytes % (Manual) Nucleated RBC % Seg Neutrophils # Seg Neutrophils # Man 30.8 H Lymphocytes # (Manual) 0.3 L Monocytes # (Manual) Eosinophils # (Manual) Basophils # (Manual) PT INR POC ABG pH ABG pH POC ABG pCO2 POC ABG pO2 ABG pO2 ABG O2 Saturation ABG Base Excess ABG Hemoglobin Oxyhemoglobin Sodium Potassium Chloride Carbon Dioxide BUN 32 H Creatinine 5.0 H D Glucose 117 H POC Glucose 191 H Calcium 8.0 L Phosphorus Magnesium Iron TIBC Ferritin AST ALT Alkaline Phosphatase Troponin T C-Reactive Protein Total Protein Albumin Triglycerides HDL Cholesterol Miscellaneous Test Crossmatch 08/26/17 08/26/17 08/26/17 05:30 06:44 13:26 WBC RBC Hgb Hct MCV MCH RDW Plt Count Lymph % (Auto) [place] % (Auto) [place] # Seg Neutrophils % Seg Neuts % (Manual) Lymphocytes % (Manual) Monocytes % (Manual) Nucleated RBC % Seg Neutrophils # Seg Neutrophils # Man Lymphocytes # (Manual) Monocytes # (Manual) Eosinophils # (Manual) Basophils # (Manual) PT INR POC ABG pH ABG pH POC ABG pCO2 POC ABG pO2 ABG pO2 ABG O2 Saturation ABG Base Excess ABG Hemoglobin Oxyhemoglobin Sodium Potassium 5.2 H Chloride Carbon Dioxide BUN 80 H Creatinine 3.4 H Glucose 193 H POC Glucose 232 H 207 H Calcium 8.3 L Phosphorus 6.80 H D Magnesium 2.60 H Iron TIBC Ferritin AST 135 H ALT Alkaline Phosphatase 211 H Troponin T C-Reactive Protein Total Protein 4.8 L Albumin 2.0 L Triglycerides HDL Cholesterol Miscellaneous Test Crossmatch 08/27/17 08/27/17 08/27/17 01:08 06:20 06:20 WBC 35.0 H RBC 2.75 L Hgb 8.4 L Hct 25.1 L MCV MCH RDW 21.8 H Plt Count Lymph % (Auto) [place] % (Auto) [place] # Seg Neutrophils % Seg Neuts % (Manual) Lymphocytes % (Manual) 4.5 L Monocytes % (Manual) Nucleated RBC % Seg Neutrophils # Seg Neutrophils # Man 31.9 H Lymphocytes # (Manual) Monocytes # (Manual) 1.2 H Eosinophils # (Manual) Basophils # (Manual) PT INR POC ABG pH ABG pH POC ABG pCO2 POC ABG pO2 ABG pO2 ABG O2 Saturation ABG Base Excess ABG Hemoglobin Oxyhemoglobin Sodium Potassium Chloride Carbon Dioxide BUN 61 H Creatinine 2.6 H Glucose 184 H POC Glucose 146 H Calcium Phosphorus 4.90 H D Magnesium Iron TIBC Ferritin AST ALT Alkaline Phosphatase Troponin T C-Reactive Protein Total Protein Albumin Triglycerides HDL Cholesterol Miscellaneous Test Crossmatch 08/27/17 08/27/17 08/27/17 07:01 09:17 12:52 WBC RBC Hgb Hct MCV MCH RDW Plt Count Lymph % (Auto) [place] % (Auto) [place] # Seg Neutrophils % Seg Neuts % (Manual) Lymphocytes % (Manual) Monocytes % (Manual) Nucleated RBC % Seg Neutrophils # Seg Neutrophils # Man Lymphocytes # (Manual) Monocytes # (Manual) Eosinophils # (Manual) Basophils # (Manual) PT INR POC ABG pH ABG pH POC ABG pCO2 POC ABG pO2 ABG pO2 ABG O2 Saturation ABG Base Excess ABG Hemoglobin Oxyhemoglobin Sodium Potassium Chloride Carbon Dioxide BUN Creatinine Glucose POC Glucose 165 H 198 H 218 H Calcium Phosphorus Magnesium Iron TIBC Ferritin AST ALT Alkaline Phosphatase Troponin T C-Reactive Protein Total Protein Albumin Triglycerides HDL Cholesterol Miscellaneous Test Crossmatch 08/27/17 08/28/17 08/28/17 17:27 02:13 06:46 WBC RBC Hgb Hct MCV MCH RDW Plt Count Lymph % (Auto) [place] % (Auto) [place] # Seg Neutrophils % Seg Neuts % (Manual) Lymphocytes % (Manual) Monocytes % (Manual) Nucleated RBC % Seg Neutrophils # Seg Neutrophils # Man Lymphocytes # (Manual) Monocytes # (Manual) Eosinophils # (Manual) Basophils # (Manual) PT INR POC ABG pH ABG pH POC ABG pCO2 POC ABG pO2 ABG pO2 ABG O2 Saturation ABG Base Excess ABG Hemoglobin Oxyhemoglobin Sodium Potassium Chloride Carbon Dioxide BUN Creatinine Glucose POC Glucose 151 H 155 H 230 H Calcium Phosphorus Magnesium Iron TIBC Ferritin AST ALT Alkaline Phosphatase Troponin T C-Reactive Protein Total Protein Albumin Triglycerides HDL Cholesterol Miscellaneous Test Crossmatch 08/28/17 08/28/17 08/28/17 06:53 06:53 08:19 WBC 31.1 H RBC 2.26 L Hgb 6.8 L Hct 20.9 L MCV MCH RDW 21.7 H Plt Count Lymph % (Auto) [place] % (Auto) [place] # Seg Neutrophils % Seg Neuts % (Manual) 83.0 H Lymphocytes % (Manual) 4.0 L Monocytes % (Manual) Nucleated RBC % Seg Neutrophils # Seg Neutrophils # Man 25.8 H Lymphocytes # (Manual) Monocytes # (Manual) Eosinophils # (Manual) Basophils # (Manual) PT INR POC ABG pH ABG pH POC ABG pCO2 POC ABG pO2 ABG pO2 ABG O2 Saturation ABG Base Excess ABG Hemoglobin Oxyhemoglobin Sodium Potassium Chloride Carbon Dioxide BUN 81 H Creatinine 3.4 H Glucose 218 H POC Glucose 239 H Calcium Phosphorus 4.90 H Magnesium Iron TIBC Ferritin AST ALT Alkaline Phosphatase Troponin T C-Reactive Protein Total Protein Albumin Triglycerides HDL Cholesterol Miscellaneous Test Crossmatch 08/28/17 08/28/17 08/28/17 11:56 13:05 13:29 WBC RBC Hgb Hct MCV MCH RDW Plt Count Lymph % (Auto) [place] % (Auto) [place] # Seg Neutrophils % Seg Neuts % (Manual) Lymphocytes % (Manual) Monocytes % (Manual) Nucleated RBC % Seg Neutrophils # Seg Neutrophils # Man Lymphocytes # (Manual) Monocytes # (Manual) Eosinophils # (Manual) Basophils # (Manual) PT 16.7 H INR 1.29 H POC ABG pH ABG pH POC ABG pCO2 POC ABG pO2 338 H ABG pO2 ABG O2 Saturation ABG Base Excess ABG Hemoglobin Oxyhemoglobin Sodium Potassium Chloride Carbon Dioxide BUN Creatinine Glucose POC Glucose Calcium Phosphorus Magnesium Iron TIBC Ferritin AST ALT Alkaline Phosphatase Troponin T C-Reactive Protein Total Protein Albumin Triglycerides HDL Cholesterol Miscellaneous Test Crossmatch See Detail 08/28/17 08/28/17 08/29/17 16:22 19:20 04:24 WBC RBC Hgb Hct MCV MCH RDW Plt Count Lymph % (Auto) [place] % (Auto) [place] # Seg Neutrophils % Seg Neuts % (Manual) Lymphocytes % (Manual) Monocytes % (Manual) Nucleated RBC % Seg Neutrophils # Seg Neutrophils # Man Lymphocytes # (Manual) Monocytes # (Manual) Eosinophils # (Manual) Basophils # (Manual) PT INR POC ABG pH 7.469 H ABG pH POC ABG pCO2 POC ABG pO2 240 H ABG pO2 ABG O2 Saturation ABG Base Excess ABG Hemoglobin Oxyhemoglobin Sodium Potassium Chloride Carbon Dioxide BUN Creatinine Glucose POC Glucose 209 H 195 H Calcium Phosphorus Magnesium Iron TIBC Ferritin AST ALT Alkaline Phosphatase Troponin T C-Reactive Protein Total Protein Albumin Triglycerides HDL Cholesterol Miscellaneous Test Crossmatch 08/29/17 08/29/17 08/29/17 04:30 04:30 12:07 WBC 44.9 H* RBC Hgb Hct MCV MCH RDW 23.1 H Plt Count Lymph % (Auto) [place] % (Auto) [place] # Seg Neutrophils % Seg Neuts % (Manual) 38.0 L Lymphocytes % (Manual) 10.0 L Monocytes % (Manual) 10.0 H Nucleated RBC % 6.0 H Seg Neutrophils # Seg Neutrophils # Man 17.1 H Lymphocytes # (Manual) Monocytes # (Manual) 4.5 H Eosinophils # (Manual) Basophils # (Manual) PT INR POC ABG pH ABG pH POC ABG pCO2 POC ABG pO2 ABG pO2 ABG O2 Saturation ABG Base Excess ABG Hemoglobin Oxyhemoglobin Sodium Potassium Chloride Carbon Dioxide BUN 61 H Creatinine 2.4 H Glucose 226 H POC Glucose 200 H Calcium Phosphorus Magnesium Iron TIBC Ferritin AST ALT Alkaline Phosphatase Troponin T C-Reactive Protein Total Protein Albumin Triglycerides HDL Cholesterol Miscellaneous Test Crossmatch 08/29/17 08/29/17 08/29/17 12:30 12:30 17:23 WBC RBC Hgb Hct MCV MCH RDW Plt Count Lymph % (Auto) [place] % (Auto) [place] # Seg Neutrophils % Seg Neuts % (Manual) Lymphocytes % (Manual) Monocytes % (Manual) Nucleated RBC % Seg Neutrophils # Seg Neutrophils # Man Lymphocytes # (Manual) Monocytes # (Manual) Eosinophils # (Manual) Basophils # (Manual) PT INR POC ABG pH ABG pH POC ABG pCO2 POC ABG pO2 ABG pO2 ABG O2 Saturation ABG Base Excess ABG Hemoglobin Oxyhemoglobin Sodium Potassium Chloride Carbon Dioxide BUN Creatinine Glucose POC Glucose 270 H Calcium Phosphorus Magnesium Iron TIBC Ferritin AST ALT Alkaline Phosphatase Troponin T C-Reactive Protein 19.10 H Total Protein Albumin Triglycerides HDL Cholesterol Miscellaneous Test Flexitest 1 H Crossmatch 08/30/17 08/30/17 08/30/17 00:10 01:30 03:31 WBC RBC Hgb Hct MCV MCH RDW Plt Count Lymph % (Auto) [place] % (Auto) [place] # Seg Neutrophils % Seg Neuts % (Manual) Lymphocytes % (Manual) Monocytes % (Manual) Nucleated RBC % Seg Neutrophils # Seg Neutrophils # Man Lymphocytes # (Manual) Monocytes # (Manual) Eosinophils # (Manual) Basophils # (Manual) PT INR POC ABG pH 7.168 L 7.335 L ABG pH POC ABG pCO2 72.8 H POC ABG pO2 257 H 117 H ABG pO2 ABG O2 Saturation ABG Base Excess ABG Hemoglobin Oxyhemoglobin Sodium Potassium Chloride Carbon Dioxide BUN Creatinine Glucose POC Glucose 245 H Calcium Phosphorus Magnesium Iron TIBC Ferritin AST ALT Alkaline Phosphatase Troponin T C-Reactive Protein Total Protein Albumin Triglycerides HDL Cholesterol Miscellaneous Test Crossmatch 08/30/17 08/30/17 08/30/17 05:20 05:20 05:20 WBC 40.9 H* RBC 3.64 L Hgb Hct MCV MCH RDW 24.3 H Plt Count Lymph % (Auto) [place] % (Auto) [place] # Seg Neutrophils % Seg Neuts % (Manual) 80.0 H Lymphocytes % (Manual) 3.0 L Monocytes % (Manual) Nucleated RBC % 1.0 H Seg Neutrophils # Seg Neutrophils # Man 32.7 H Lymphocytes # (Manual) Monocytes # (Manual) Eosinophils # (Manual) Basophils # (Manual) PT INR POC ABG pH ABG pH POC ABG pCO2 POC ABG pO2 ABG pO2 ABG O2 Saturation ABG Base Excess ABG Hemoglobin Oxyhemoglobin Sodium Potassium Chloride Carbon Dioxide BUN 83 H Creatinine 2.9 H Glucose 334 H POC Glucose 309 H Calcium Phosphorus Magnesium Iron TIBC Ferritin AST ALT Alkaline Phosphatase Troponin T C-Reactive Protein Total Protein Albumin Triglycerides HDL Cholesterol Miscellaneous Test Crossmatch 08/30/17 08/30/17 08/31/17 12:18 17:36 00:17 WBC RBC Hgb Hct MCV MCH RDW Plt Count Lymph % (Auto) [place] % (Auto) [place] # Seg Neutrophils % Seg Neuts % (Manual) Lymphocytes % (Manual) Monocytes % (Manual) Nucleated RBC % Seg Neutrophils # Seg Neutrophils # Man Lymphocytes # (Manual) Monocytes # (Manual) Eosinophils # (Manual) Basophils # (Manual) PT INR POC ABG pH ABG pH POC ABG pCO2 POC ABG pO2 ABG pO2 ABG O2 Saturation ABG Base Excess ABG Hemoglobin Oxyhemoglobin Sodium Potassium Chloride Carbon Dioxide BUN Creatinine Glucose POC Glucose 273 H 293 H 360 H Calcium Phosphorus Magnesium Iron TIBC Ferritin AST ALT Alkaline Phosphatase Troponin T C-Reactive Protein Total Protein Albumin Triglycerides HDL Cholesterol Miscellaneous Test Crossmatch 08/31/17 08/31/17 08/31/17 05:30 05:30 05:32 WBC 29.9 H RBC 2.89 L Hgb 8.2 L Hct 24.7 L D MCV MCH RDW 24.4 H Plt Count Lymph % (Auto) [place] % (Auto) [place] # Seg Neutrophils % Seg Neuts % (Manual) Lymphocytes % (Manual) 2.0 L Monocytes % (Manual) Nucleated RBC % 2.0 H Seg Neutrophils # Seg Neutrophils # Man 18.5 H Lymphocytes # (Manual) 0.6 L Monocytes # (Manual) 0.9 H Eosinophils # (Manual) Basophils # (Manual) PT INR POC ABG pH ABG pH POC ABG pCO2 POC ABG pO2 ABG pO2 ABG O2 Saturation ABG Base Excess ABG Hemoglobin Oxyhemoglobin Sodium Potassium Chloride Carbon Dioxide BUN 62 H Creatinine 2.2 H Glucose 245 H POC Glucose 257 H Calcium Phosphorus 2.10 L D Magnesium 1.60 L Iron TIBC Ferritin AST ALT Alkaline Phosphatase Troponin T C-Reactive Protein Total Protein Albumin Triglycerides HDL Cholesterol Miscellaneous Test Crossmatch 08/31/17 08/31/17 08/31/17 11:56 12:05 18:14 WBC 32.5 H RBC 3.19 L Hgb 8.8 L Hct 27.9 L MCV MCH RDW 24.9 H Plt Count Lymph % (Auto) [place] % (Auto) [place] # Seg Neutrophils % Seg Neuts % (Manual) Lymphocytes % (Manual) 1.0 L Monocytes % (Manual) 12.0 H Nucleated RBC % 1.0 H Seg Neutrophils # Seg Neutrophils # Man 13.3 H Lymphocytes # (Manual) 0.3 L Monocytes # (Manual) 3.9 H Eosinophils # (Manual) Basophils # (Manual) PT INR POC ABG pH ABG pH POC ABG pCO2 POC ABG pO2 ABG pO2 ABG O2 Saturation ABG Base Excess ABG Hemoglobin Oxyhemoglobin Sodium Potassium Chloride Carbon Dioxide BUN Creatinine Glucose POC Glucose 245 H Calcium Phosphorus Magnesium Iron TIBC Ferritin AST ALT Alkaline Phosphatase Troponin T C-Reactive Protein Total Protein Albumin Triglycerides HDL Cholesterol Miscellaneous Test Crossmatch See Detail 08/31/17 08/31/17 08/31/17 18:14 18:15 18:22 WBC RBC Hgb Hct MCV MCH RDW Plt Count Lymph % (Auto) [place] % (Auto) [place] # Seg Neutrophils % Seg Neuts % (Manual) Lymphocytes % (Manual) Monocytes % (Manual) Nucleated RBC % Seg Neutrophils # Seg Neutrophils # Man Lymphocytes # (Manual) Monocytes # (Manual) Eosinophils # (Manual) Basophils # (Manual) PT 15.1 H INR POC ABG pH ABG pH POC ABG pCO2 POC ABG pO2 ABG pO2 ABG O2 Saturation ABG Base Excess ABG Hemoglobin Oxyhemoglobin Sodium 136 L Potassium Chloride Carbon Dioxide 21 L BUN 69 H Creatinine 2.3 H Glucose 227 H POC Glucose 240 H Calcium Phosphorus 2.40 L Magnesium 1.50 L Iron TIBC Ferritin AST 143 H ALT 114 H Alkaline Phosphatase 267 H Troponin T C-Reactive Protein Total Protein 4.1 L Albumin 1.8 L Triglycerides HDL Cholesterol Miscellaneous Test Crossmatch 08/31/17 09/01/17 09/01/17 23:53 05:00 05:00 WBC 33.9 H RBC 2.85 L Hgb 7.8 L Hct 24.8 L MCV MCH 27 L RDW 23.9 H Plt Count Lymph % (Auto) [place] % (Auto) [place] # Seg Neutrophils % Seg Neuts % (Manual) Lymphocytes % (Manual) 5.0 L Monocytes % (Manual) Nucleated RBC % Seg Neutrophils # Seg Neutrophils # Man 23.1 H Lymphocytes # (Manual) Monocytes # (Manual) Eosinophils # (Manual) Basophils # (Manual) PT INR POC ABG pH ABG pH POC ABG pCO2 POC ABG pO2 ABG pO2 ABG O2 Saturation ABG Base Excess ABG Hemoglobin Oxyhemoglobin Sodium Potassium Chloride Carbon Dioxide BUN 51 H Creatinine 1.8 H Glucose 195 H POC Glucose 301 H Calcium Phosphorus 1.70 L D Magnesium 1.60 L Iron TIBC Ferritin AST 80 H ALT 82 H Alkaline Phosphatase 243 H Troponin T C-Reactive Protein Total Protein 4.2 L Albumin 1.7 L Triglycerides HDL Cholesterol Miscellaneous Test Crossmatch 09/01/17 09/01/17 09/01/17 05:20 05:47 11:37 WBC RBC Hgb Hct MCV MCH RDW Plt Count Lymph % (Auto) [place] % (Auto) [place] # Seg Neutrophils % Seg Neuts % (Manual) Lymphocytes % (Manual) Monocytes % (Manual) Nucleated RBC % Seg Neutrophils # Seg Neutrophils # Man Lymphocytes # (Manual) Monocytes # (Manual) Eosinophils # (Manual) Basophils # (Manual) PT INR POC ABG pH ABG pH 7.348 L POC ABG pCO2 POC ABG pO2 ABG pO2 70.2 L ABG O2 Saturation ABG Base Excess ABG Hemoglobin 7.5 L Oxyhemoglobin Sodium Potassium Chloride Carbon Dioxide BUN Creatinine Glucose POC Glucose 230 H 254 H Calcium Phosphorus Magnesium Iron TIBC Ferritin AST ALT Alkaline Phosphatase Troponin T C-Reactive Protein Total Protein Albumin Triglycerides HDL Cholesterol Miscellaneous Test Crossmatch 09/01/17 09/01/17 09/02/17 17:39 23:14 04:55 WBC RBC Hgb Hct MCV MCH RDW Plt Count Lymph % (Auto) [place] % (Auto) [place] # Seg Neutrophils % Seg Neuts % (Manual) Lymphocytes % (Manual) Monocytes % (Manual) Nucleated RBC % Seg Neutrophils # Seg Neutrophils # Man Lymphocytes # (Manual) Monocytes # (Manual) Eosinophils # (Manual) Basophils # (Manual) PT INR POC ABG pH ABG pH POC ABG pCO2 POC ABG pO2 ABG pO2 124.8 H ABG O2 Saturation ABG Base Excess -2.9 L ABG Hemoglobin 5.8 L Oxyhemoglobin Sodium Potassium Chloride Carbon Dioxide BUN Creatinine Glucose POC Glucose 297 H 291 H Calcium Phosphorus Magnesium Iron TIBC Ferritin AST ALT Alkaline Phosphatase Troponin T C-Reactive Protein Total Protein Albumin Triglycerides HDL Cholesterol Miscellaneous Test Crossmatch 09/02/17 09/02/17 09/02/17 05:31 06:10 11:58 WBC RBC Hgb Hct MCV MCH RDW Plt Count Lymph % (Auto) [place] % (Auto) [place] # Seg Neutrophils % Seg Neuts % (Manual) Lymphocytes % (Manual) Monocytes % (Manual) Nucleated RBC % Seg Neutrophils # Seg Neutrophils # Man Lymphocytes # (Manual) Monocytes # (Manual) Eosinophils # (Manual) Basophils # (Manual) PT INR POC ABG pH ABG pH POC ABG pCO2 POC ABG pO2 ABG pO2 ABG O2 Saturation ABG Base Excess ABG Hemoglobin Oxyhemoglobin Sodium Potassium Chloride Carbon Dioxide BUN 68 H Creatinine 2.2 H Glucose 369 H POC Glucose 245 H 333 H Calcium 8.2 L Phosphorus Magnesium Iron TIBC Ferritin AST ALT Alkaline Phosphatase Troponin T C-Reactive Protein Total Protein Albumin Triglycerides HDL Cholesterol Miscellaneous Test Crossmatch 09/02/17 09/02/17 09/03/17 15:37 23:50 04:00 WBC RBC Hgb Hct MCV MCH RDW Plt Count Lymph % (Auto) [place] % (Auto) [place] # Seg Neutrophils % Seg Neuts % (Manual) Lymphocytes % (Manual) Monocytes % (Manual) Nucleated RBC % Seg Neutrophils # Seg Neutrophils # Man Lymphocytes # (Manual) Monocytes # (Manual) Eosinophils # (Manual) Basophils # (Manual) PT INR POC ABG pH ABG pH POC ABG pCO2 POC ABG pO2 ABG pO2 ABG O2 Saturation ABG Base Excess ABG Hemoglobin Oxyhemoglobin Sodium Potassium Chloride Carbon Dioxide BUN 59 H Creatinine 1.9 H Glucose 231 H POC Glucose 314 H 240 H Calcium 8.0 L Phosphorus Magnesium Iron TIBC Ferritin AST ALT Alkaline Phosphatase 265 H Troponin T C-Reactive Protein Total Protein 4.4 L Albumin 1.7 L Triglycerides 180 H HDL Cholesterol Miscellaneous Test Crossmatch 09/03/17 09/03/17 09/03/17 05:00 05:32 11:52 WBC 41.5 H* RBC 2.46 L Hgb 6.9 L Hct 21.3 L MCV MCH RDW 24.9 H Plt Count Lymph % (Auto) [place] % (Auto) [place] # Seg Neutrophils % Seg Neuts % (Manual) Lymphocytes % (Manual) 3.0 L Monocytes % (Manual) 9.5 H Nucleated RBC % 1.5 H Seg Neutrophils # Seg Neutrophils # Man 28.8 H Lymphocytes # (Manual) Monocytes # (Manual) 3.9 H Eosinophils # (Manual) Basophils # (Manual) PT INR POC ABG pH ABG pH POC ABG pCO2 POC ABG pO2 ABG pO2 ABG O2 Saturation ABG Base Excess ABG Hemoglobin Oxyhemoglobin Sodium Potassium Chloride Carbon Dioxide BUN Creatinine Glucose POC Glucose 188 H 285 H Calcium Phosphorus Magnesium Iron TIBC Ferritin AST ALT Alkaline Phosphatase Troponin T C-Reactive Protein Total Protein Albumin Triglycerides HDL Cholesterol Miscellaneous Test Crossmatch 09/03/17 09/03/17 09/03/17 16:55 17:44 23:56 WBC RBC Hgb Hct MCV MCH RDW Plt Count Lymph % (Auto) [place] % (Auto) [place] # Seg Neutrophils % Seg Neuts % (Manual) Lymphocytes % (Manual) Monocytes % (Manual) Nucleated RBC % Seg Neutrophils # Seg Neutrophils # Man Lymphocytes # (Manual) Monocytes # (Manual) Eosinophils # (Manual) Basophils # (Manual) PT INR POC ABG pH ABG pH POC ABG pCO2 POC ABG pO2 ABG pO2 ABG O2 Saturation ABG Base Excess ABG Hemoglobin Oxyhemoglobin Sodium Potassium Chloride Carbon Dioxide BUN Creatinine Glucose POC Glucose 217 H 193 H Calcium Phosphorus Magnesium Iron TIBC Ferritin AST ALT Alkaline Phosphatase Troponin T C-Reactive Protein Total Protein Albumin Triglycerides HDL Cholesterol Miscellaneous Test Crossmatch See Detail 09/03/17 09/04/17 09/04/17 Unknown 03:47 04:32 WBC 44.7 H* RBC 3.12 L Hgb 8.7 L Hct 26.7 L MCV MCH RDW 23.5 H Plt Count Lymph % (Auto) [place] % (Auto) [place] # Seg Neutrophils % Seg Neuts % (Manual) Lymphocytes % (Manual) 4.0 L Monocytes % (Manual) Nucleated RBC % 2.0 H Seg Neutrophils # Seg Neutrophils # Man 30.8 H Lymphocytes # (Manual) Monocytes # (Manual) 2.2 H Eosinophils # (Manual) Basophils # (Manual) PT INR POC ABG pH ABG pH POC ABG pCO2 POC ABG pO2 ABG pO2 133.4 H 135.0 H ABG O2 Saturation ABG Base Excess -2.5 L ABG Hemoglobin 5.8 L 7.9 L Oxyhemoglobin Sodium Potassium Chloride Carbon Dioxide BUN Creatinine Glucose POC Glucose Calcium Phosphorus Magnesium Iron TIBC Ferritin AST ALT Alkaline Phosphatase Troponin T C-Reactive Protein Total Protein Albumin Triglycerides HDL Cholesterol Miscellaneous Test Crossmatch 09/04/17 09/04/17 09/04/17 04:32 05:48 10:43 WBC RBC Hgb Hct MCV MCH RDW Plt Count Lymph % (Auto) [place] % (Auto) [place] # Seg Neutrophils % Seg Neuts % (Manual) Lymphocytes % (Manual) Monocytes % (Manual) Nucleated RBC % Seg Neutrophils # Seg Neutrophils # Man Lymphocytes # (Manual) Monocytes # (Manual) Eosinophils # (Manual) Basophils # (Manual) PT INR POC ABG pH ABG pH POC ABG pCO2 POC ABG pO2 ABG pO2 ABG O2 Saturation ABG Base Excess ABG Hemoglobin Oxyhemoglobin Sodium 136 L Potassium 5.2 H D Chloride 94.2 L Carbon Dioxide BUN 71 H Creatinine 2.3 H Glucose 235 H POC Glucose 329 H Calcium 8.3 L Phosphorus Magnesium Iron TIBC Ferritin AST ALT Alkaline Phosphatase Troponin T C-Reactive Protein Total Protein Albumin Triglycerides HDL Cholesterol Miscellaneous Test Flexitest 1 H Crossmatch 09/04/17 09/04/17 09/05/17 12:38 17:30 00:15 WBC RBC Hgb Hct MCV MCH RDW Plt Count Lymph % (Auto) [place] % (Auto) [place] # Seg Neutrophils % Seg Neuts % (Manual) Lymphocytes % (Manual) Monocytes % (Manual) Nucleated RBC % Seg Neutrophils # Seg Neutrophils # Man Lymphocytes # (Manual) Monocytes # (Manual) Eosinophils # (Manual) Basophils # (Manual) PT INR POC ABG pH ABG pH POC ABG pCO2 POC ABG pO2 ABG pO2 ABG O2 Saturation ABG Base Excess ABG Hemoglobin Oxyhemoglobin Sodium Potassium Chloride Carbon Dioxide BUN Creatinine Glucose POC Glucose 444 H 331 H 362 H Calcium Phosphorus Magnesium Iron TIBC Ferritin AST ALT Alkaline Phosphatase Troponin T C-Reactive Protein Total Protein Albumin Triglycerides HDL Cholesterol Miscellaneous Test Crossmatch 09/05/17 09/05/17 09/05/17 03:55 03:55 12:12 WBC 35.3 H RBC 2.87 L Hgb 8.1 L Hct 24.6 L MCV MCH RDW 23.3 H Plt Count Lymph % (Auto) [place] % (Auto) [place] # Seg Neutrophils % Seg Neuts % (Manual) 89.5 H Lymphocytes % (Manual) 3.0 L Monocytes % (Manual) Nucleated RBC % 2.5 H Seg Neutrophils # Seg Neutrophils # Man 31.6 H Lymphocytes # (Manual) 1.1 L Monocytes # (Manual) Eosinophils # (Manual) Basophils # (Manual) PT INR POC ABG pH ABG pH POC ABG pCO2 POC ABG pO2 ABG pO2 ABG O2 Saturation ABG Base Excess ABG Hemoglobin Oxyhemoglobin Sodium 136 L Potassium Chloride 94.7 L Carbon Dioxide BUN 55 H Creatinine 1.8 H Glucose 193 H POC Glucose 344 H Calcium 8.1 L Phosphorus Magnesium Iron TIBC Ferritin AST ALT Alkaline Phosphatase Troponin T C-Reactive Protein Total Protein Albumin Triglycerides HDL Cholesterol Miscellaneous Test Crossmatch 09/05/17 09/05/17 09/05/17 14:32 15:32 16:41 WBC RBC Hgb Hct MCV MCH RDW Plt Count Lymph % (Auto) [place] % (Auto) [place] # Seg Neutrophils % Seg Neuts % (Manual) Lymphocytes % (Manual) Monocytes % (Manual) Nucleated RBC % Seg Neutrophils # Seg Neutrophils # Man Lymphocytes # (Manual) Monocytes # (Manual) Eosinophils # (Manual) Basophils # (Manual) PT INR POC ABG pH ABG pH POC ABG pCO2 POC ABG pO2 ABG pO2 ABG O2 Saturation ABG Base Excess ABG Hemoglobin Oxyhemoglobin Sodium Potassium Chloride Carbon Dioxide BUN Creatinine Glucose POC Glucose 265 H 145 H 188 H Calcium Phosphorus Magnesium Iron TIBC Ferritin AST ALT Alkaline Phosphatase Troponin T C-Reactive Protein Total Protein Albumin Triglycerides HDL Cholesterol Miscellaneous Test Crossmatch 09/05/17 09/05/17 09/05/17 17:28 18:38 20:10 WBC RBC Hgb Hct MCV MCH RDW Plt Count Lymph % (Auto) [place] % (Auto) [place] # Seg Neutrophils % Seg Neuts % (Manual) Lymphocytes % (Manual) Monocytes % (Manual) Nucleated RBC % Seg Neutrophils # Seg Neutrophils # Man Lymphocytes # (Manual) Monocytes # (Manual) Eosinophils # (Manual) Basophils # (Manual) PT INR POC ABG pH ABG pH POC ABG pCO2 POC ABG pO2 ABG pO2 ABG O2 Saturation ABG Base Excess ABG Hemoglobin Oxyhemoglobin Sodium Potassium Chloride Carbon Dioxide BUN Creatinine Glucose POC Glucose 246 H 271 H 165 H Calcium Phosphorus Magnesium Iron TIBC Ferritin AST ALT Alkaline Phosphatase Troponin T C-Reactive Protein Total Protein Albumin Triglycerides HDL Cholesterol Miscellaneous Test Crossmatch 09/05/17 09/05/17 09/06/17 21:06 23:07 00:10 WBC RBC Hgb Hct MCV MCH RDW Plt Count Lymph % (Auto) [place] % (Auto) [place] # Seg Neutrophils % Seg Neuts % (Manual) Lymphocytes % (Manual) Monocytes % (Manual) Nucleated RBC % Seg Neutrophils # Seg Neutrophils # Man Lymphocytes # (Manual) Monocytes # (Manual) Eosinophils # (Manual) Basophils # (Manual) PT INR POC ABG pH ABG pH POC ABG pCO2 POC ABG pO2 ABG pO2 ABG O2 Saturation ABG Base Excess ABG Hemoglobin Oxyhemoglobin Sodium Potassium Chloride Carbon Dioxide BUN Creatinine Glucose POC Glucose 134 H 135 H 147 H Calcium Phosphorus Magnesium Iron TIBC Ferritin AST ALT Alkaline Phosphatase Troponin T C-Reactive Protein Total Protein Albumin Triglycerides HDL Cholesterol Miscellaneous Test Crossmatch 09/06/17 09/06/17 09/06/17 01:08 02:01 03:08 WBC RBC Hgb Hct MCV MCH RDW Plt Count Lymph % (Auto) [place] % (Auto) [place] # Seg Neutrophils % Seg Neuts % (Manual) Lymphocytes % (Manual) Monocytes % (Manual) Nucleated RBC % Seg Neutrophils # Seg Neutrophils # Man Lymphocytes # (Manual) Monocytes # (Manual) Eosinophils # (Manual) Basophils # (Manual) PT INR POC ABG pH ABG pH POC ABG pCO2 POC ABG pO2 ABG pO2 ABG O2 Saturation ABG Base Excess ABG Hemoglobin Oxyhemoglobin Sodium Potassium Chloride Carbon Dioxide BUN Creatinine Glucose POC Glucose 133 H 146 H 135 H Calcium Phosphorus Magnesium Iron TIBC Ferritin AST ALT Alkaline Phosphatase Troponin T C-Reactive Protein Total Protein Albumin Triglycerides HDL Cholesterol Miscellaneous Test Crossmatch 09/06/17 09/06/17 09/06/17 05:30 05:30 05:30 WBC 38.6 H RBC 2.95 L Hgb 8.3 L Hct 25.3 L MCV MCH RDW 22.2 H Plt Count Lymph % (Auto) [place] % (Auto) [place] # Seg Neutrophils % Seg Neuts % (Manual) Lymphocytes % (Manual) 2.0 L Monocytes % (Manual) Nucleated RBC % 5.0 H Seg Neutrophils # Seg Neutrophils # Man 25.9 H Lymphocytes # (Manual) 0.8 L Monocytes # (Manual) 1.9 H Eosinophils # (Manual) Basophils # (Manual) PT INR POC ABG pH ABG pH POC ABG pCO2 POC ABG pO2 ABG pO2 ABG O2 Saturation ABG Base Excess ABG Hemoglobin Oxyhemoglobin Sodium 135 L Potassium Chloride 93.5 L Carbon Dioxide BUN 82 H Creatinine 2.3 H Glucose 148 H POC Glucose Calcium Phosphorus Magnesium Iron TIBC Ferritin AST ALT Alkaline Phosphatase Troponin T C-Reactive Protein 2.80 H Total Protein Albumin Triglycerides HDL Cholesterol Miscellaneous Test Crossmatch 09/06/17 09/06/17 09/06/17 05:48 08:04 09:06 WBC RBC Hgb Hct MCV MCH RDW Plt Count Lymph % (Auto) [place] % (Auto) [place] # Seg Neutrophils % Seg Neuts % (Manual) Lymphocytes % (Manual) Monocytes % (Manual) Nucleated RBC % Seg Neutrophils # Seg Neutrophils # Man Lymphocytes # (Manual) Monocytes # (Manual) Eosinophils # (Manual) Basophils # (Manual) PT INR POC ABG pH ABG pH POC ABG pCO2 POC ABG pO2 ABG pO2 ABG O2 Saturation ABG Base Excess ABG Hemoglobin Oxyhemoglobin Sodium Potassium Chloride Carbon Dioxide BUN Creatinine Glucose POC Glucose 152 H 164 H 172 H Calcium Phosphorus Magnesium Iron TIBC Ferritin AST ALT Alkaline Phosphatase Troponin T C-Reactive Protein Total Protein Albumin Triglycerides HDL Cholesterol Miscellaneous Test Crossmatch 09/06/17 09/06/17 09/06/17 09:57 10:19 10:57 WBC RBC Hgb Hct MCV MCH RDW Plt Count Lymph % (Auto) [place] % (Auto) [place] # Seg Neutrophils % Seg Neuts % (Manual) Lymphocytes % (Manual) Monocytes % (Manual) Nucleated RBC % Seg Neutrophils # Seg Neutrophils # Man Lymphocytes # (Manual) Monocytes # (Manual) Eosinophils # (Manual) Basophils # (Manual) PT INR POC ABG pH ABG pH POC ABG pCO2 POC ABG pO2 ABG pO2 ABG O2 Saturation ABG Base Excess ABG Hemoglobin Oxyhemoglobin Sodium Potassium Chloride Carbon Dioxide BUN Creatinine Glucose POC Glucose 186 H 162 H Calcium Phosphorus Magnesium Iron TIBC Ferritin AST ALT Alkaline Phosphatase Troponin T C-Reactive Protein Total Protein Albumin Triglycerides HDL Cholesterol Miscellaneous Test Flexitest 1 H Crossmatch 09/06/17 09/06/17 09/06/17 13:12 13:40 17:36 WBC RBC Hgb 8.9 L Hct 28.5 L MCV MCH RDW Plt Count Lymph % (Auto) [place] % (Auto) [place] # Seg Neutrophils % Seg Neuts % (Manual) Lymphocytes % (Manual) Monocytes % (Manual) Nucleated RBC % Seg Neutrophils # Seg Neutrophils # Man Lymphocytes # (Manual) Monocytes # (Manual) Eosinophils # (Manual) Basophils # (Manual) PT INR POC ABG pH ABG pH POC ABG pCO2 POC ABG pO2 ABG pO2 ABG O2 Saturation ABG Base Excess ABG Hemoglobin Oxyhemoglobin Sodium Potassium Chloride Carbon Dioxide BUN Creatinine Glucose POC Glucose 166 H 161 H Calcium Phosphorus Magnesium Iron TIBC Ferritin AST ALT Alkaline Phosphatase Troponin T C-Reactive Protein Total Protein Albumin Triglycerides HDL Cholesterol Miscellaneous Test Crossmatch 09/07/17 09/07/17 09/07/17 00:13 03:50 03:50 WBC 47.0 H* RBC 2.81 L Hgb 8.1 L Hct 24.1 L MCV MCH RDW 22.5 H Plt Count Lymph % (Auto) [place] % (Auto) [place] # Seg Neutrophils % Seg Neuts % (Manual) Lymphocytes % (Manual) 9.0 L Monocytes % (Manual) Nucleated RBC % 6.0 H Seg Neutrophils # Seg Neutrophils # Man 27.3 H Lymphocytes # (Manual) Monocytes # (Manual) 0.9 H Eosinophils # (Manual) 1.9 H Basophils # (Manual) PT INR POC ABG pH ABG pH POC ABG pCO2 POC ABG pO2 ABG pO2 ABG O2 Saturation ABG Base Excess ABG Hemoglobin Oxyhemoglobin Sodium 136 L Potassium Chloride 96.3 L Carbon Dioxide BUN 61 H Creatinine 1.7 H Glucose 132 H POC Glucose 183 H Calcium 7.8 L Phosphorus Magnesium Iron TIBC Ferritin AST ALT Alkaline Phosphatase Troponin T C-Reactive Protein Total Protein Albumin Triglycerides HDL Cholesterol Miscellaneous Test Crossmatch 09/07/17 09/07/17 09/07/17 05:12 05:23 11:48 WBC RBC Hgb Hct MCV MCH RDW Plt Count Lymph % (Auto) [place] % (Auto) [place] # Seg Neutrophils % Seg Neuts % (Manual) Lymphocytes % (Manual) Monocytes % (Manual) Nucleated RBC % Seg Neutrophils # Seg Neutrophils # Man Lymphocytes # (Manual) Monocytes # (Manual) Eosinophils # (Manual) Basophils # (Manual) PT INR POC ABG pH ABG pH POC ABG pCO2 POC ABG pO2 ABG pO2 ABG O2 Saturation ABG Base Excess ABG Hemoglobin 7.7 L Oxyhemoglobin 94.8 L Sodium Potassium Chloride Carbon Dioxide BUN Creatinine Glucose POC Glucose 162 H 200 H Calcium Phosphorus Magnesium Iron TIBC Ferritin AST ALT Alkaline Phosphatase Troponin T C-Reactive Protein Total Protein Albumin Triglycerides HDL Cholesterol Miscellaneous Test Crossmatch 09/07/17 09/07/17 09/08/17 17:07 18:21 00:06 WBC RBC Hgb Hct MCV MCH RDW Plt Count Lymph % (Auto) [place] % (Auto) [place] # Seg Neutrophils % Seg Neuts % (Manual) Lymphocytes % (Manual) Monocytes % (Manual) Nucleated RBC % Seg Neutrophils # Seg Neutrophils # Man Lymphocytes # (Manual) Monocytes # (Manual) Eosinophils # (Manual) Basophils # (Manual) PT INR POC ABG pH ABG pH POC ABG pCO2 POC ABG pO2 ABG pO2 ABG O2 Saturation ABG Base Excess ABG Hemoglobin Oxyhemoglobin Sodium Potassium Chloride Carbon Dioxide BUN Creatinine Glucose POC Glucose 181 H 168 H Calcium Phosphorus Magnesium Iron TIBC Ferritin AST ALT Alkaline Phosphatase Troponin T C-Reactive Protein Total Protein Albumin Triglycerides HDL Cholesterol Miscellaneous Test Crossmatch See Detail 09/08/17 09/08/17 09/08/17 04:05 04:05 04:41 WBC 49.7 H* RBC 2.58 L Hgb 7.3 L Hct 22.7 L MCV MCH RDW 22.5 H Plt Count Lymph % (Auto) [place] % (Auto) [place] # Seg Neutrophils % Seg Neuts % (Manual) 90.5 H Lymphocytes % (Manual) 1.5 L Monocytes % (Manual) Nucleated RBC % Seg Neutrophils # Seg Neutrophils # Man 45.0 H Lymphocytes # (Manual) 0.7 L Monocytes # (Manual) 1.7 H Eosinophils # (Manual) Basophils # (Manual) PT INR POC ABG pH ABG pH POC ABG pCO2 POC ABG pO2 ABG pO2 ABG O2 Saturation ABG Base Excess ABG Hemoglobin Oxyhemoglobin Sodium 132 L Potassium Chloride 92.1 L Carbon Dioxide BUN 82 H Creatinine 2.2 H Glucose 162 H POC Glucose 235 H Calcium 8.3 L Phosphorus 5.20 H D Magnesium Iron TIBC Ferritin AST ALT Alkaline Phosphatase 199 H Troponin T C-Reactive Protein Total Protein 4.5 L Albumin 1.7 L Triglycerides HDL Cholesterol Miscellaneous Test Crossmatch 09/08/17 09/08/17 09/08/17 09:21 11:52 17:38 WBC RBC Hgb Hct MCV MCH RDW Plt Count Lymph % (Auto) [place] % (Auto) [place] # Seg Neutrophils % Seg Neuts % (Manual) Lymphocytes % (Manual) Monocytes % (Manual) Nucleated RBC % Seg Neutrophils # Seg Neutrophils # Man Lymphocytes # (Manual) Monocytes # (Manual) Eosinophils # (Manual) Basophils # (Manual) PT INR POC ABG pH ABG pH POC ABG pCO2 POC ABG pO2 ABG pO2 218.5 H ABG O2 Saturation 99.3 H ABG Base Excess -3.5 L ABG Hemoglobin 7.7 L Oxyhemoglobin Sodium Potassium Chloride Carbon Dioxide BUN Creatinine Glucose POC Glucose 220 H 194 H Calcium Phosphorus Magnesium Iron TIBC Ferritin AST ALT Alkaline Phosphatase Troponin T C-Reactive Protein Total Protein Albumin Triglycerides HDL Cholesterol Miscellaneous Test Crossmatch 09/09/17 09/09/17 09/09/17 00:24 03:37 03:37 WBC 33.5 H RBC 2.36 L Hgb 6.7 L Hct 20.9 L MCV MCH RDW 22.7 H Plt Count Lymph % (Auto) [place] % (Auto) [place] # Seg Neutrophils % Seg Neuts % (Manual) Lymphocytes % (Manual) Monocytes % (Manual) Nucleated RBC % Seg Neutrophils # Seg Neutrophils # Man Lymphocytes # (Manual) Monocytes # (Manual) Eosinophils # (Manual) Basophils # (Manual) PT INR POC ABG pH ABG pH POC ABG pCO2 POC ABG pO2 ABG pO2 ABG O2 Saturation ABG Base Excess ABG Hemoglobin Oxyhemoglobin Sodium 132 L Potassium Chloride 91.6 L Carbon Dioxide 21 L BUN 101 H Creatinine 2.6 H Glucose 156 H POC Glucose 182 H Calcium 8.3 L Phosphorus 5.90 H Magnesium 2.60 H Iron TIBC Ferritin AST ALT Alkaline Phosphatase Troponin T C-Reactive Protein Total Protein Albumin Triglycerides HDL Cholesterol Miscellaneous Test Crossmatch 09/09/17 09/09/17 09/09/17 05:29 12:03 18:05 WBC RBC Hgb Hct MCV MCH RDW Plt Count Lymph % (Auto) [place] % (Auto) [place] # Seg Neutrophils % Seg Neuts % (Manual) Lymphocytes % (Manual) Monocytes % (Manual) Nucleated RBC % Seg Neutrophils # Seg Neutrophils # Man Lymphocytes # (Manual) Monocytes # (Manual) Eosinophils # (Manual) Basophils # (Manual) PT INR POC ABG pH ABG pH POC ABG pCO2 POC ABG pO2 ABG pO2 ABG O2 Saturation ABG Base Excess ABG Hemoglobin Oxyhemoglobin Sodium Potassium Chloride Carbon Dioxide BUN Creatinine Glucose POC Glucose 168 H 143 H 173 H Calcium Phosphorus Magnesium Iron TIBC Ferritin AST ALT Alkaline Phosphatase Troponin T C-Reactive Protein Total Protein Albumin Triglycerides HDL Cholesterol Miscellaneous Test Crossmatch 09/09/17 09/09/17 09/10/17 23:30 Unknown 05:04 WBC RBC Hgb Hct MCV MCH RDW Plt Count Lymph % (Auto) [place] % (Auto) [place] # Seg Neutrophils % Seg Neuts % (Manual) Lymphocytes % (Manual) Monocytes % (Manual) Nucleated RBC % Seg Neutrophils # Seg Neutrophils # Man Lymphocytes # (Manual) Monocytes # (Manual) Eosinophils # (Manual) Basophils # (Manual) PT INR POC ABG pH ABG pH 7.323 L POC ABG pCO2 POC ABG pO2 ABG pO2 94.1 H ABG O2 Saturation ABG Base Excess -4.8 L ABG Hemoglobin 8.0 L Oxyhemoglobin 94.9 L Sodium Potassium Chloride Carbon Dioxide BUN Creatinine Glucose POC Glucose 212 H 155 H Calcium Phosphorus Magnesium Iron TIBC Ferritin AST ALT Alkaline Phosphatase Troponin T C-Reactive Protein Total Protein Albumin Triglycerides HDL Cholesterol Miscellaneous Test Crossmatch 09/10/17 09/10/17 09/10/17 07:00 09:55 12:22 WBC 24.7 H RBC 2.62 L Hgb 7.5 L Hct 22.5 L MCV MCH RDW 20.8 H Plt Count Lymph % (Auto) [place] % (Auto) [place] # Seg Neutrophils % Seg Neuts % (Manual) Lymphocytes % (Manual) Monocytes % (Manual) Nucleated RBC % Seg Neutrophils # Seg Neutrophils # Man Lymphocytes # (Manual) Monocytes # (Manual) Eosinophils # (Manual) Basophils # (Manual) PT INR POC ABG pH ABG pH POC ABG pCO2 POC ABG pO2 ABG pO2 ABG O2 Saturation ABG Base Excess ABG Hemoglobin Oxyhemoglobin Sodium Potassium Chloride 97.9 L Carbon Dioxide BUN 78 H Creatinine 2.0 H Glucose 126 H POC Glucose 183 H Calcium 8.2 L Phosphorus Magnesium Iron TIBC Ferritin AST ALT Alkaline Phosphatase Troponin T C-Reactive Protein Total Protein Albumin Triglycerides HDL Cholesterol Miscellaneous Test Crossmatch 09/11/17 09/11/17 09/11/17 00:08 03:50 05:28 WBC 21.6 H RBC 2.52 L Hgb 7.4 L Hct 22.2 L MCV MCH RDW 21.5 H Plt Count Lymph % (Auto) [place] % (Auto) [place] # Seg Neutrophils % Seg Neuts % (Manual) 92.0 H Lymphocytes % (Manual) 3.0 L Monocytes % (Manual) Nucleated RBC % Seg Neutrophils # Seg Neutrophils # Man 19.9 H Lymphocytes # (Manual) 0.6 L Monocytes # (Manual) Eosinophils # (Manual) Basophils # (Manual) PT INR POC ABG pH ABG pH POC ABG pCO2 POC ABG pO2 ABG pO2 ABG O2 Saturation ABG Base Excess ABG Hemoglobin Oxyhemoglobin Sodium Potassium Chloride Carbon Dioxide BUN Creatinine Glucose POC Glucose 213 H 181 H Calcium Phosphorus Magnesium Iron TIBC Ferritin AST ALT Alkaline Phosphatase Troponin T C-Reactive Protein Total Protein Albumin Triglycerides HDL Cholesterol Miscellaneous Test Crossmatch 09/11/17 09/11/17 09/11/17 11:55 17:56 23:12 WBC RBC Hgb Hct MCV MCH RDW Plt Count Lymph % (Auto) [place] % (Auto) [place] # Seg Neutrophils % Seg Neuts % (Manual) Lymphocytes % (Manual) Monocytes % (Manual) Nucleated RBC % Seg Neutrophils # Seg Neutrophils # Man Lymphocytes # (Manual) Monocytes # (Manual) Eosinophils # (Manual) Basophils # (Manual) PT INR POC ABG pH ABG pH POC ABG pCO2 POC ABG pO2 ABG pO2 ABG O2 Saturation ABG Base Excess ABG Hemoglobin Oxyhemoglobin Sodium Potassium Chloride Carbon Dioxide 21 L BUN 80 H Creatinine 2.1 H Glucose 170 H POC Glucose 277 H 206 H Calcium 8.0 L Phosphorus Magnesium Iron TIBC Ferritin AST ALT Alkaline Phosphatase Troponin T C-Reactive Protein Total Protein Albumin Triglycerides HDL Cholesterol Miscellaneous Test Crossmatch 09/11/17 09/12/17 09/12/17 23:36 05:25 05:25 WBC 17.4 H RBC 2.29 L Hgb 6.7 L Hct 20.4 L MCV MCH RDW 21.2 H Plt Count Lymph % (Auto) [place] % (Auto) [place] # Seg Neutrophils % Seg Neuts % (Manual) 79.0 H Lymphocytes % (Manual) 5.0 L Monocytes % (Manual) Nucleated RBC % 1.0 H Seg Neutrophils # Seg Neutrophils # Man 13.7 H Lymphocytes # (Manual) 0.9 L Monocytes # (Manual) 1.2 H Eosinophils # (Manual) Basophils # (Manual) PT INR POC ABG pH ABG pH POC ABG pCO2 POC ABG pO2 ABG pO2 ABG O2 Saturation ABG Base Excess ABG Hemoglobin Oxyhemoglobin Sodium Potassium Chloride Carbon Dioxide BUN Creatinine Glucose POC Glucose 190 H Calcium Phosphorus Magnesium Iron 22 L TIBC 81 L Ferritin AST ALT Alkaline Phosphatase Troponin T C-Reactive Protein Total Protein Albumin Triglycerides HDL Cholesterol Miscellaneous Test Crossmatch 09/12/17 09/12/17 09/12/17 05:25 05:36 09:14 WBC RBC Hgb Hct MCV MCH RDW Plt Count Lymph % (Auto) [place] % (Auto) [place] # Seg Neutrophils % Seg Neuts % (Manual) Lymphocytes % (Manual) Monocytes % (Manual) Nucleated RBC % Seg Neutrophils # Seg Neutrophils # Man Lymphocytes # (Manual) Monocytes # (Manual) Eosinophils # (Manual) Basophils # (Manual) PT INR POC ABG pH ABG pH POC ABG pCO2 POC ABG pO2 ABG pO2 ABG O2 Saturation ABG Base Excess ABG Hemoglobin Oxyhemoglobin Sodium Potassium Chloride Carbon Dioxide BUN Creatinine Glucose POC Glucose 141 H Calcium Phosphorus Magnesium Iron TIBC Ferritin > 2000.0 H AST ALT Alkaline Phosphatase Troponin T C-Reactive Protein Total Protein Albumin Triglycerides HDL Cholesterol Miscellaneous Test Crossmatch See Detail 09/12/17 09/12/17 09/12/17 11:18 15:22 17:18 WBC RBC Hgb 8.5 L Hct 25.4 L MCV MCH RDW Plt Count Lymph % (Auto) [place] % (Auto) [place] # Seg Neutrophils % Seg Neuts % (Manual) Lymphocytes % (Manual) Monocytes % (Manual) Nucleated RBC % Seg Neutrophils # Seg Neutrophils # Man Lymphocytes # (Manual) Monocytes # (Manual) Eosinophils # (Manual) Basophils # (Manual) PT INR POC ABG pH ABG pH POC ABG pCO2 POC ABG pO2 ABG pO2 ABG O2 Saturation ABG Base Excess ABG Hemoglobin Oxyhemoglobin Sodium Potassium Chloride Carbon Dioxide BUN Creatinine Glucose POC Glucose 262 H 193 H Calcium Phosphorus Magnesium Iron TIBC Ferritin AST ALT Alkaline Phosphatase Troponin T C-Reactive Protein Total Protein Albumin Triglycerides HDL Cholesterol Miscellaneous Test Crossmatch 09/13/17 09/13/17 09/13/17 00:05 06:25 11:36 WBC RBC Hgb Hct MCV MCH RDW Plt Count Lymph % (Auto) [place] % (Auto) [place] # Seg Neutrophils % Seg Neuts % (Manual) Lymphocytes % (Manual) Monocytes % (Manual) Nucleated RBC % Seg Neutrophils # Seg Neutrophils # Man Lymphocytes # (Manual) Monocytes # (Manual) Eosinophils # (Manual) Basophils # (Manual) PT INR POC ABG pH 7.347 L ABG pH POC ABG pCO2 34.3 L POC ABG pO2 134 H ABG pO2 ABG O2 Saturation ABG Base Excess ABG Hemoglobin Oxyhemoglobin Sodium Potassium Chloride Carbon Dioxide BUN Creatinine Glucose POC Glucose 235 H 286 H Calcium Phosphorus Magnesium Iron TIBC Ferritin AST ALT Alkaline Phosphatase Troponin T C-Reactive Protein Total Protein Albumin Triglycerides HDL Cholesterol Miscellaneous Test Crossmatch 09/13/17 09/13/17 09/13/17 11:56 17:25 23:18 WBC RBC Hgb Hct MCV MCH RDW Plt Count Lymph % (Auto) [place] % (Auto) [place] # Seg Neutrophils % Seg Neuts % (Manual) Lymphocytes % (Manual) Monocytes % (Manual) Nucleated RBC % Seg Neutrophils # Seg Neutrophils # Man Lymphocytes # (Manual) Monocytes # (Manual) Eosinophils # (Manual) Basophils # (Manual) PT INR POC ABG pH ABG pH POC ABG pCO2 POC ABG pO2 ABG pO2 ABG O2 Saturation ABG Base Excess ABG Hemoglobin Oxyhemoglobin Sodium Potassium Chloride Carbon Dioxide BUN Creatinine Glucose POC Glucose 318 H 278 H 230 H Calcium Phosphorus Magnesium Iron TIBC Ferritin AST ALT Alkaline Phosphatase Troponin T C-Reactive Protein Total Protein Albumin Triglycerides HDL Cholesterol Miscellaneous Test Crossmatch 09/13/17 09/13/17 09/13/17 Unknown Unknown Unknown WBC 15.6 H RBC 2.72 L Hgb 8.1 L Hct 23.9 L MCV MCH RDW 19.5 H Plt Count 137 L Lymph % (Auto) [place] % (Auto) [place] # Seg Neutrophils % Seg Neuts % (Manual) 73.0 H Lymphocytes % (Manual) 3.0 L Monocytes % (Manual) 19.0 H Nucleated RBC % 2.0 H Seg Neutrophils # Seg Neutrophils # Man 11.4 H Lymphocytes # (Manual) 0.5 L Monocytes # (Manual) 3.0 H Eosinophils # (Manual) Basophils # (Manual) PT INR POC ABG pH ABG pH POC ABG pCO2 POC ABG pO2 ABG pO2 ABG O2 Saturation ABG Base Excess ABG Hemoglobin Oxyhemoglobin Sodium Potassium Chloride Carbon Dioxide 19 L BUN 103 H Creatinine 2.6 H Glucose 173 H POC Glucose Calcium Phosphorus Magnesium Iron TIBC Ferritin AST ALT Alkaline Phosphatase Troponin T C-Reactive Protein Total Protein Albumin < 0.2 L Triglycerides HDL Cholesterol Miscellaneous Test Crossmatch 09/14/17 09/14/17 09/14/17 03:15 03:15 05:16 WBC 12.5 H RBC 2.55 L Hgb 7.6 L Hct 22.5 L MCV MCH RDW 19.8 H Plt Count 139 L Lymph % (Auto) [place] % (Auto) [place] # Seg Neutrophils % Seg Neuts % (Manual) Lymphocytes % (Manual) Monocytes % (Manual) Nucleated RBC % Seg Neutrophils # Seg Neutrophils # Man Lymphocytes # (Manual) Monocytes # (Manual) Eosinophils # (Manual) Basophils # (Manual) PT INR POC ABG pH ABG pH POC ABG pCO2 POC ABG pO2 ABG pO2 ABG O2 Saturation ABG Base Excess ABG Hemoglobin Oxyhemoglobin Sodium Potassium Chloride Carbon Dioxide BUN 75 H Creatinine 2.1 H Glucose 217 H POC Glucose 283 H Calcium Phosphorus 2.20 L D Magnesium Iron TIBC Ferritin AST ALT Alkaline Phosphatase Troponin T C-Reactive Protein Total Protein Albumin Triglycerides HDL Cholesterol Miscellaneous Test Crossmatch 09/14/17 09/14/17 09/15/17 12:11 17:47 00:03 WBC RBC Hgb Hct MCV MCH RDW Plt Count Lymph % (Auto) [place] % (Auto) [place] # Seg Neutrophils % Seg Neuts % (Manual) Lymphocytes % (Manual) Monocytes % (Manual) Nucleated RBC % Seg Neutrophils # Seg Neutrophils # Man Lymphocytes # (Manual) Monocytes # (Manual) Eosinophils # (Manual) Basophils # (Manual) PT INR POC ABG pH ABG pH POC ABG pCO2 POC ABG pO2 ABG pO2 ABG O2 Saturation ABG Base Excess ABG Hemoglobin Oxyhemoglobin Sodium Potassium Chloride Carbon Dioxide BUN Creatinine Glucose POC Glucose 251 H 289 H 229 H Calcium Phosphorus Magnesium Iron TIBC Ferritin AST ALT Alkaline Phosphatase Troponin T C-Reactive Protein Total Protein Albumin Triglycerides HDL Cholesterol Miscellaneous Test Crossmatch 09/15/17 09/15/17 09/15/17 05:00 05:00 05:30 WBC 11.7 H RBC 2.50 L Hgb 7.4 L Hct 22.7 L MCV MCH RDW 20.5 H Plt Count Lymph % (Auto) [place] % (Auto) [place] # Seg Neutrophils % Seg Neuts % (Manual) Lymphocytes % (Manual) 11.0 L Monocytes % (Manual) 11.0 H Nucleated RBC % Seg Neutrophils # Seg Neutrophils # Man Lymphocytes # (Manual) Monocytes # (Manual) 1.3 H Eosinophils # (Manual) Basophils # (Manual) PT INR POC ABG pH ABG pH POC ABG pCO2 POC ABG pO2 ABG pO2 ABG O2 Saturation ABG Base Excess ABG Hemoglobin Oxyhemoglobin Sodium Potassium Chloride 97.0 L Carbon Dioxide 21 L BUN 94 H Creatinine 2.4 H Glucose 194 H POC Glucose 225 H Calcium Phosphorus Magnesium Iron TIBC Ferritin AST ALT Alkaline Phosphatase Troponin T C-Reactive Protein Total Protein Albumin Triglycerides HDL Cholesterol Miscellaneous Test Crossmatch 09/15/17 07:48 WBC RBC Hgb Hct MCV MCH RDW Plt Count Lymph % (Auto) [place] % (Auto) [place] # Seg Neutrophils % Seg Neuts % (Manual) Lymphocytes % (Manual) Monocytes % (Manual) Nucleated RBC % Seg Neutrophils # Seg Neutrophils # Man Lymphocytes # (Manual) Monocytes # (Manual) Eosinophils # (Manual) Basophils # (Manual) PT INR POC ABG pH ABG pH POC ABG pCO2 POC ABG pO2 ABG pO2 ABG O2 Saturation ABG Base Excess ABG Hemoglobin Oxyhemoglobin Sodium Potassium Chloride Carbon Dioxide BUN Creatinine Glucose POC Glucose 245 H Calcium Phosphorus Magnesium Iron TIBC Ferritin AST ALT Alkaline Phosphatase Troponin T C-Reactive Protein Total Protein Albumin Triglycerides HDL Cholesterol Miscellaneous Test Crossmatch
[2017-09-15] MEDS ORDERED: SILVER NITRATE TP ONE (12:08)
[2017-09-15] MEDS ORDERED: NACL 0.9% 500 ML 500 ML IV ONE ×2 (13:02→14:30)
[2017-09-15 13:12] LABS: Mean Corpuscular HGB Conc 34 % (30-34); Mean Corpuscular Hemoglobin 30 pg (28-32); Mean Corpuscular Volume 89 fl (79-97); Platelet Count 125 K/mm3 (140-440); Red Blood Count 1.93 M/mm3 (3.65-5.03); White Blood Count 9.8 K/mm3 (4.5-11.0)
[2017-09-15 13:23] LABS: INR 1.16 (0.87-1.13)
--- NOTE | 2017-09-15 13:25 | Progress Note ---
Assessment and Plan 62 y.o. F s/p ex lap, abdominal wash out and abdominal wall closure after wound dehiscence 2 weeks s/p ex lap for gastric perforation and sbo. Bleeding appears to be intrabdominal- bleeding controlled with pressure but patient needs definitive isolation and control of bleeding source. She will be going back to the operating room today for exploratory lapartomy and control of bleeding. Risks and benefits discussed with the and daughter and they agree to the procedure. Rpt labs now: cbc, bmp, inr, t/s Pt lost approx 250-300cc of blood during control of bleeding and probably another 100 at least on the dressings- will transfuse 1 unit prbc Sepsis: Pt requiring levo, vaso. s/p [place] placement with now decreasing amount of Levo required. Leukocytosis improving. restart of steroids per pulm- steroids place wound at greater risk of poor wound healing. Discussed risk vs benefit with pulm. on Saturday. -[place] placed- following antonieta does not match bp cuff pressors. following antonieta. -Wound care following wounds on legs/sacrum - ID following - merrem, mycamin, cubicin VDRF: s/p trach. Prev Gastric perf: Sealed. Pt started on trickle feeds overnight however high residuals. tube feeds held and G tube opened to gravity to allow feeds to drain for upcoming surgery. CKD- HD per renal Nutrition: TPN at 75, albumin supp. DVT proph: scds hold hep with current bleeding GI: PPI. - Patient Problems (1) Peritonitis (acute) generalized Current Visit: Yes Status: Acute Subjective Narrative: Arrived to find pts abdominal dressing saturated with blood. Dressing removed and fascial defect noted to be at superior portion of wound and bleeding from within defect. Per nurse, pt noted to have vaginal bleeding this am but dressing was not saturated with blood. tube feeds started via NG at 10cc overnight. The G tube was not used for tube feeds bc the attachment could not be detached from the G tube. This am residual was check by unclamping the G tube about 100cc drained into the G tube and the tube feeds were stopped. Levo: 3 Vaso: 0.03 afebrile G~100cc bile mixed with feeds after unclamping in the am MERVIN 160cc drk red blood. no clots. Objective Vital Signs - 12hr 09/15/17 09/15/17 09/15/17 01:31 01:45 02:01 Temperature Pulse Rate 86 75 69 Pulse Rate [ Anterior Bilateral Throughout] Pulse Rate [ Apical] Respiratory 13 21 21 Rate Respiratory Rate [Anterior Bilateral Throughout] Blood Pressure O2 Sat by Pulse 100 100 100 Oximetry O2 Sat by Pulse Oximetry [ Assessment] 09/15/17 09/15/17 09/15/17 02:15 02:25 02:31 Temperature Pulse Rate 77 72 Pulse Rate [ 68 76 Anterior Bilateral Throughout] Pulse Rate [ Apical] Respiratory 13 20 Rate Respiratory 21 20 Rate [Anterior Bilateral Throughout] Blood Pressure O2 Sat by Pulse 100 100 Oximetry O2 Sat by Pulse Oximetry [ Assessment] 09/15/17 09/15/17 09/15/17 02:45 03:01 03:15 Temperature Pulse Rate 77 81 97 H Pulse Rate [ Anterior Bilateral Throughout] Pulse Rate [ Apical] Respiratory 25 H 12 22 Rate Respiratory Rate [Anterior Bilateral Throughout] Blood Pressure O2 Sat by Pulse 100 100 100 Oximetry O2 Sat by Pulse Oximetry [ Assessment] 09/15/17 09/15/17 09/15/17 03:31 03:45 04:00 Temperature 98.2 F Pulse Rate 100 H 96 H Pulse Rate [ Anterior Bilateral Throughout] Pulse Rate [ 79 Apical] Respiratory 21 17 Rate Respiratory Rate [Anterior Bilateral Throughout] Blood Pressure O2 Sat by Pulse 100 100 99 Oximetry O2 Sat by Pulse Oximetry [ Assessment] 09/15/17 09/15/17 09/15/17 04:01 04:15 04:31 Temperature Pulse Rate 101 H 88 83 Pulse Rate [ Anterior Bilateral Throughout] Pulse Rate [ Apical] Respiratory 16 20 22 Rate Respiratory Rate [Anterior Bilateral Throughout] Blood Pressure O2 Sat by Pulse 100 100 100 Oximetry O2 Sat by Pulse Oximetry [ Assessment] 09/15/17 09/15/17 09/15/17 04:45 05:01 05:15 Temperature Pulse Rate 84 88 78 Pulse Rate [ Anterior Bilateral Throughout] Pulse Rate [ Apical] Respiratory 22 21 21 Rate Respiratory Rate [Anterior Bilateral Throughout] Blood Pressure O2 Sat by Pulse 100 100 95 Oximetry O2 Sat by Pulse Oximetry [ Assessment] 09/15/17 09/15/17 09/15/17 05:31 05:45 06:01 Temperature Pulse Rate 82 96 H 84 Pulse Rate [ Anterior Bilateral Throughout] Pulse Rate [ Apical] Respiratory 19 15 21 Rate Respiratory Rate [Anterior Bilateral Throughout] Blood Pressure O2 Sat by Pulse 99 99 98 Oximetry O2 Sat by Pulse Oximetry [ Assessment] 09/15/17 09/15/17 09/15/17 06:15 06:31 06:45 Temperature Pulse Rate 87 84 80 Pulse Rate [ Anterior Bilateral Throughout] Pulse Rate [ Apical] Respiratory 16 22 21 Rate Respiratory Rate [Anterior Bilateral Throughout] Blood Pressure O2 Sat by Pulse 100 95 96 Oximetry O2 Sat by Pulse Oximetry [ Assessment] 09/15/17 09/15/17 09/15/17 07:01 07:15 07:31 Temperature Pulse Rate 88 78 85 Pulse Rate [ Anterior Bilateral Throughout] Pulse Rate [ Apical] Respiratory 20 21 19 Rate Respiratory Rate [Anterior Bilateral Throughout] Blood Pressure O2 Sat by Pulse 100 97 99 Oximetry O2 Sat by Pulse Oximetry [ Assessment] 09/15/17 09/15/17 09/15/17 07:39 07:44 07:45 Temperature Pulse Rate 95 H 92 H 102 H Pulse Rate [ 95 H Anterior Bilateral Throughout] Pulse Rate [ Apical] Respiratory 15 Rate Respiratory 21 Rate [Anterior Bilateral Throughout] Blood Pressure 196/190 O2 Sat by Pulse 100 99 Oximetry O2 Sat by Pulse Oximetry [ Assessment] 09/15/17 09/15/17 09/15/17 07:54 07:56 08:00 Temperature 97.8 F Pulse Rate Pulse Rate [ 90 Anterior Bilateral Throughout] Pulse Rate [ Apical] Respiratory Rate Respiratory 21 Rate [Anterior Bilateral Throughout] Blood Pressure O2 Sat by Pulse 99 Oximetry O2 Sat by Pulse 97 Oximetry [ Assessment] 09/15/17 09/15/17 09/15/17 08:01 08:15 08:31 Temperature Pulse Rate 86 80 81 Pulse Rate [ Anterior Bilateral Throughout] Pulse Rate [ Apical] Respiratory 21 16 21 Rate Respiratory Rate [Anterior Bilateral Throughout] Blood Pressure O2 Sat by Pulse 100 94 92 Oximetry O2 Sat by Pulse Oximetry [ Assessment] 09/15/17 09/15/17 09/15/17 08:45 09:01 09:15 Temperature Pulse Rate 86 85 76 Pulse Rate [ Anterior Bilateral Throughout] Pulse Rate [ Apical] Respiratory 20 21 23 Rate Respiratory Rate [Anterior Bilateral Throughout] Blood Pressure O2 Sat by Pulse 99 100 98 Oximetry O2 Sat by Pulse Oximetry [ Assessment] 09/15/17 09/15/17 09/15/17 09:31 09:45 10:01 Temperature Pulse Rate 74 95 H 96 H Pulse Rate [ Anterior Bilateral Throughout] Pulse Rate [ Apical] Respiratory 22 18 11 L Rate Respiratory Rate [Anterior Bilateral Throughout] Blood Pressure O2 Sat by Pulse 98 100 97 Oximetry O2 Sat by Pulse Oximetry [ Assessment] 09/15/17 09/15/17 09/15/17 10:15 10:31 10:45 Temperature Pulse Rate 69 76 70 Pulse Rate [ Anterior Bilateral Throughout] Pulse Rate [ Apical] Respiratory 20 21 16 Rate Respiratory Rate [Anterior Bilateral Throughout] Blood Pressure O2 Sat by Pulse 100 100 100 Oximetry O2 Sat by Pulse Oximetry [ Assessment] 09/15/17 09/15/17 09/15/17 11:01 11:15 11:31 Temperature Pulse Rate 79 83 93 H Pulse Rate [ Anterior Bilateral Throughout] Pulse Rate [ Apical] Respiratory 21 20 18 Rate Respiratory Rate [Anterior Bilateral Throughout] Blood Pressure O2 Sat by Pulse 100 100 100 Oximetry O2 Sat by Pulse Oximetry [ Assessment] 09/15/17 11:32 Temperature Pulse Rate 102 H Pulse Rate [ Anterior Bilateral Throughout] Pulse Rate [ Apical] Respiratory Rate Respiratory Rate [Anterior Bilateral Throughout] Blood Pressure 122/60 O2 Sat by Pulse 100 Oximetry O2 Sat by Pulse Oximetry [ Assessment] - General physical appearance no pain, chronically ill, obese - Respiratory normal expansion, normal respiratory effort, other (vent) - Abdomen soft, other (dressing saturated with blood- removed from midine. packing removed as well. puntate bleeding at wound bed controlled with silver nitrate stick. superior portion of incision- fasical defect noted 1.5cm with bright red blood pooling within abdomen just inferior to fascia. Pressure held intrabdominally to controll bleeding. wound packed to slow bleeding. apprx 250- 300cc sunctioned during the control of bleeding. MERVIN drk blood. fascia intact within the rest of the wound. ) - Neurologic disoriented - Musculoskeletal other (+2 edema upper extremities bl. +3-4 edema lower extremities bl ) - Psychiatric other (responds to name. does not follow commands. ) - Labs 09/15/17 05:00 09/15/17 05:00 Diabetes panel 09/15/17 Range/Units 05:00 Sodium 138 (137-145) mmol/L Potassium 4.6 (3.6-5.0) mmol/L Chloride 97.0 L (98-107) mmol/L Carbon Dioxide 21 L (22-30) mmol/L BUN 94 H (7-17) mg/dL Creatinine 2.4 H (0.7-1.2) mg/dL Glucose 194 H (65-100) mg/dL Calcium 9.2 (8.4-10.2) mg/dL Calcium panel 09/15/17 Range/Units 05:00 Calcium 9.2 (8.4-10.2) mg/dL Phosphorus 3.20 D (2.5-4.5) mg/dL Pituitary panel 09/15/17 Range/Units 05:00 Sodium 138 (137-145) mmol/L Potassium 4.6 (3.6-5.0) mmol/L Chloride 97.0 L (98-107) mmol/L Carbon Dioxide 21 L (22-30) mmol/L BUN 94 H (7-17) mg/dL Creatinine 2.4 H (0.7-1.2) mg/dL Glucose 194 H (65-100) mg/dL Calcium 9.2 (8.4-10.2) mg/dL Adrenal panel 09/15/17 Range/Units 05:00 Sodium 138 (137-145) mmol/L Potassium 4.6 (3.6-5.0) mmol/L Chloride 97.0 L (98-107) mmol/L Carbon Dioxide 21 L (22-30) mmol/L BUN 94 H (7-17) mg/dL Creatinine 2.4 H (0.7-1.2) mg/dL Glucose 194 H (65-100) mg/dL Calcium 9.2 (8.4-10.2) mg/dL
[2017-09-15] MEDS ORDERED: ZEMURON IV ONE ×2 (13:36→17:24)
[2017-09-15] MEDS ORDERED: NACL 0.9% IR ONE (14:07)
[2017-09-15 14:22] LABS: Hemoglobin 5.7 gm/dl (10.1-14.3)
[2017-09-15 14:23] LABS: Hematocrit 17.1 % (30.3-42.9); Red Cell Distribution Width 20.2 % (13.2-15.2)
[2017-09-15 14:29] LABS: Anisocytosis 1+; Basophils % (Manual) 0 % (0.0-1.8); Blastocytes % (Manual) 0 %; Eosinophils % (Manual) 0 % (0.0-4.3); Microcytosis Few
[2017-09-15 14:30] LABS: Polychromasia Few; Target Cells Few
[2017-09-15 14:31] LABS: Diff Status Complete; Hypochromasia 2+; Platelet Estimate Appears Decreased
--- NOTE | 2017-09-15 16:45 | Anesthesia Consultation ---
Anesthesia Consult and Med Hx Date of service: 09/15/17 - Airway Mallampati Class: Class IV (unable to assess, trach in place) - Pulmonary Exam CTA: Yes - Cardiac Exam Cardiac Exam: RRR - Pre-Operative Health Status ASA Pre-Surgery Classification: ASA4, Emergency Proposed Anesthetic Plan: General - Pulmonary Hx Smoking: No Hx Asthma: No Hx Respiratory Symptoms: No SOB: No COPD: Yes (Acute Respiratory Failure, s/p trach) Hx Pneumonia: No Hx Sleep Apnea: Yes - Cardiovascular System Hx Hypertension: No (now on vasopressors, levophed and vasopressin) Hx Coronary Artery Disease: No Hx Heart Attack/AMI: No Hx Angina: No Hx Percutaneous Transluminal Coronary Angioplasty (PTCA): No Hx Cardia Arrhythmia: No Hx Pacemaker: No Hx Internal Defibrillator: No Hx Valvular Heart Disease: No Hx Heart Murmur: No Hx Peripheral Vascular Disease: No - Central Nervous System Hx Neuromuscular Disorder: Yes (wheelchair bound, cannot move right leg, hypersensitivity in right hand) Hx Seizures: No CVA: No Hx Back Pain: Yes (C4-6 disc disease s/p ACDF and posterior fusion ) Hx Psychiatric Problems: No - Gastrointestinal Hx Ulcer: Yes Hx Gastroesophageal Reflux Disease: No - Endocrine Hx Renal Disease: Yes (MWF dialysis) Hx End Stage Renal Disease: Yes Hx Cirrhosis: No Hx Liver Disease: No Hx Insulin Dependent Diabetes: No Hx Non-Insulin Dependent Diabetes: No Hx Thyroid Disease: No - Hematic Hx Anemia: Yes Hx Sickle Cell Disease: No - Other Systems Hx Alcohol Use: Yes (wine 2 x week) Hx Substance Use: No Hx Cancer: No Hx Obesity: Yes (MORBID, BMI > 40)
[2017-09-15] MEDS ORDERED: NACL 0.9% 1000 ML 1,000 ML ONE (17:23)
[2017-09-15] MEDS ORDERED: DILAUDID ONE (17:39)
[2017-09-15] MEDS ORDERED: BACITRACIN ONE ×2 (18:21→19:10)
[2017-09-15] MEDS ORDERED: BACITRACIN IR ONE (19:11)
[2017-09-15] MEDS ORDERED: TPN ADULT 1,800 ML IV SCH (20:00)
--- NOTE | 2017-09-15 21:41 | Operative Report ---
Operative Report Operative Report: DATE: 09/15/17 SURGEON: ALEN NOGUERA MD ASSIST SURGEON: SHALONDA NUGENT MD PRE-OP DX: ABDOMINAL BLEEDING POST OP DX: COLONIC PERFORATION PROCEDURE: 1. EX LAP 2. TRANSVERSE COLECTOMY 3. RIGHT SIDED COLOSTOMY 4. ABDOMINAL WASH OUT EBL: 50-100CC COMPLICATIONS: NONE SPECIMEN: COLON ANESTHESIA: GENERAL DICATION # [id number]
--- NOTE | 2017-09-15 22:07 | Operative Report ---
SURGEON: Carla Chamorro MD. HEAD FIELD HOCKEY COACH: Dr. Suki Rasmussen. PREOPERATIVE DIAGNOSIS: Acute abdominal bleeding. POSTOPERATIVE DIAGNOSIS: Colonic perforation. PROCEDURE PERFORMED: 1. Exploratory laparotomy. 2. Extended left transverse colectomy. 3. Right-sided colostomy. 4. Abdominal washout. INDICATIONS: The patient is a 62-year-old female who had a recent history in the last month of exploratory laparotomy for gastric perforation and bowel obstruction, who has had a complicated postsurgical course with a wound dehiscence that 2 weeks ago required surgery and reclosure of her midline abdominal wound. She has been since that procedure on increasing pressor requirements and needing intermittent blood transfusions every 5-7 days. Today at her dressing change, it was noted that she had some significant bleeding coming from inside the abdominal cavity and also what was thought to be some extensive vaginal bleeding. She was taken to the OR for exploration of her abdominal cavity to look for any source of bleeding. Her family member signed informed consent. PROCEDURE IN DETAIL: The patient was brought into OR suite, laid in a supine position. Bilateral booties were on her feet. She had a tracheostomy, which anesthesia was able to administer general anesthesia. Her abdomen was then prepped and draped in sterile fashion. We started at the proximal portion of the wound where it appeared to be dehiscing again, the kelli were taken down. There was no obvious source of bleeding. There were some old clots appreciated. At this time, it was decided to clear away some of the clots before closing to see if any bleeding can be elucidated. There was noted to be a band of scar tissue between the greater curve of the stomach and the splenic flexure of the colon. Once this was taken down, it appeared to be a hole where we could see intraluminally into the colon, as more of the scar tissue was released it was noted to be a significant hole, at this time, I decided to resect this portion of her colon. The transverse colon was mobilized as well as the splenic flexure and the left colon was transected using a LigaSure device. The mesentery of the colon was taken, staying close to the colon all the way close to the hepatic flexure. The right branch of the middle colic was identified and taken in order to not have tension for the intended colostomy that was to be performed before finishing the case. Great care was taken by the spleen. There were some bleeding that was controlled with a LigaSure device and Vicryl ties. The specimen was sent to pathology. There was noted to be some intraloop abscesses, so the adhesions between the loops of bowel were released. The abdomen was irrigated with copious amount of normal saline infused with bacitracin antibiotic. The abdomen was copiously irrigated. Her G-tube was repositioned at the level of the fascia and the skin; however, the gastrotomy remained intact. The drain that was previously there was removed and switched to her left side, feeling that this was adequate, the right side of the colon was then exteriorized to be a fascial defect approximately 4-5 cm lateral to her midline to the rectus muscle. The midline incision was then closed with a #1 looped PDS 0 Ethibond for internal retention sutures and #2 nylon for external retention sutures. Once the midline was closed, the colostomy was matured with 2-0 and 3-0 Vicryl. There were some stay sutures placed at the level of the fascia to help secure it and to decrease the chance of it retracting into the abdominal cavity. A colostomy bag dressing was applied. Iodoform dressing was placed in the midline at the skin level followed by sterile dressing. MERVIN drain was attached to bulb suction and the G-tube was placed to gravity suction. The patient remained stable in regard to her preoperative state. She still required pressors, but instead of 2, she was just on the vasopressin, the Levophed was turned off at some point during the case. She was transfused 3 units of packed red blood cells intraoperatively due to a preop hemoglobin of 5 that was taken at the beginning of the procedure. She was awoken and returned to the event and taken to recovery. JOB# [id number] MARTHA/ISMAEL
[2017-09-15 22:50] LABS: Hematocrit 29.3 % (30.3-42.9); Mean Corpuscular HGB Conc 34 % (30-34); Mean Corpuscular Hemoglobin 30 pg (28-32); Mean Corpuscular Volume 88 fl (79-97); Platelet Count 123 K/mm3 (140-440); Red Blood Count 3.32 M/mm3 (3.65-5.03); White Blood Count 19.6 K/mm3 (4.5-11.0)
[2017-09-15 23:04] LABS: Albumin 1.8 g/dL (3.9-5); Albumin/Globulin Ratio 0.8 %; Bilirubin,Total 2.8 mg/dL (0.1-1.2); Calcium 8.3 mg/dL (8.4-10.2); Chloride 100.3 mmol/L (98-107); Magnesium 1.6 mg/dL (1.7-2.3); Phosphorous 4.4 mg/dL (2.5-4.5); Potassium 4.7 mmol/L (3.6-5.0)
[2017-09-15] MEDS: MERREM 1,000 MG in NACL 0.9% 100 ML IV SCH (23:27)
[2017-09-15] MEDS: Vasostrict 20 UNIT in NACL 0.9% 100 ML IV SCH (23:57)
[2017-09-15] MEDS: D50W (25GM) Vial IV PRN (23:57)
[2017-09-16 00:40] LABS: Blastocytes % (Manual) 0 %
[2017-09-16 00:41] LABS: Anisocytosis 1+; Basophils % (Manual) 0 % (0.0-1.8); Eosinophils % (Manual) 0 % (0.0-4.3); Hypochromasia 1+; Microcytosis Few; Target Cells Few
[2017-09-16 00:42] LABS: Diff Status Complete; Platelet Estimate Consistent w Auto
[2017-09-16] MEDS: DUONEB *Not for PRN Use IH SCH ×4 (01:39→20:11)
[2017-09-16] MEDS: fentaNYL DRIP Premix 2,000 MCG/100 ML BAG IV SCH ×2 (02:25→06:03)
[2017-09-16] MEDS: NOVOLOG SUB-Q SCH ×5 (06:15→17:49)
[2017-09-16 06:22] LABS: Hematocrit 28.6 % (30.3-42.9); Hemoglobin 9.8 gm/dl (10.1-14.3); Mean Corpuscular HGB Conc 34 % (30-34); Mean Corpuscular Hemoglobin 30 pg (28-32); Mean Corpuscular Volume 89 fl (79-97); Platelet Count 127 K/mm3 (140-440); Red Blood Count 3.22 M/mm3 (3.65-5.03); Red Cell Distribution Width 17.4 % (13.2-15.2)
[2017-09-16 06:25] LABS: White Blood Count 24.6 K/mm3 (4.5-11.0)
[2017-09-16 06:45] LABS: Albumin 1.8 g/dL (3.9-5); Albumin/Globulin Ratio 0.8 %; Bilirubin,Total 2.4 mg/dL (0.1-1.2); Calcium 8.5 mg/dL (8.4-10.2); Chloride 100.6 mmol/L (98-107); Magnesium 1.7 mg/dL (1.7-2.3); Phosphorous 4.8 mg/dL (2.5-4.5); Total Protein 4.1 g/dL (6.3-8.2)
[2017-09-16] MEDS ORDERED: NACL 0.9 (PRIMING MACHINE ONLY DIALYSIS) MC ONE (07:32)
--- NOTE | 2017-09-16 07:37 | Progress Note ---
Assessment and Plan - Patient Problems (1) ESRD (end stage renal disease) on dialysis Current Visit: Yes Status: Acute Plan to address problem: Continue HD on MWF and Isolated UF on TTS as tolerated. HD today. Patient is on TPN. (2) Hyperkalemia Current Visit: Yes Status: Acute Plan to address problem: Improved. (3) Anemia Current Visit: No Status: Chronic Qualifiers: Anemia type: due to chronic kidney disease Iron deficiency anemia type: I Vitamin B12 deficiency anemia type: V Folate deficiency anemia type: F Bone marrow failure anemia type: B Hemolytic anemia type: H Other causes of anemia: O Chronic kidney disease stage: on chronic dialysis Qualified Code(s ): N18.6 - End stage renal disease; D63.1 - Anemia in chronic kidney disease; Z99.2 - Dependence on renal dialysis Plan to address problem: S/p multiple units of PRBC. Epogen on dialysis days. (4) Hypotension Current Visit: Yes Status: Chronic Qualifiers: Hypotension type: H Trimester: T Plan to address problem: On Levophed. (5) Volume overload Current Visit: Yes Status: Acute Qualifiers: Hypervolemia type: H Plan to address problem: UF as tolerated. (6) Leukocytosis Current Visit: Yes Status: Acute Qualifiers: Leukocytosis type: unspecified Qualified Code(s): D72.829 - Elevated white blood cell count, unspecified (7) Acute respiratory failure with hypoxemia Current Visit: Yes Status: Acute Plan to address problem: On the vent. (8) Sepsis Current Visit: Yes Status: Acute Qualifiers: Sepsis type: S Subjective Date of service: 09/16/17 Principal diagnosis: respiratory failure, sepsis, shock rectal bleeding Interval history: Patient was seen and examined at the bedside. Patient underwent partial colectomy and colostomy for perforation of colon. Objective - Vital Signs Vital signs: Vital Signs - 12hr 09/15/17 09/15/17 09/15/17 21:49 21:55 22:00 Temperature 96.0 F L Pulse Rate 91 H 90 90 Pulse Rate [ Anterior Bilateral Upper Lobe] Pulse Rate [ Apical] Respiratory 20 20 20 Rate Respiratory Rate [Anterior Bilateral Upper Lobe] Blood Pressure 123/66 102/57 99/56 O2 Sat by Pulse 100 100 100 Oximetry O2 Sat by Pulse Oximetry [ Assessment] 09/15/17 09/15/17 09/15/17 22:05 22:15 22:16 Temperature Pulse Rate 92 H 90 90 Pulse Rate [ Anterior Bilateral Upper Lobe] Pulse Rate [ Apical] Respiratory 20 20 Rate Respiratory Rate [Anterior Bilateral Upper Lobe] Blood Pressure 97/58 94/52 95/52 O2 Sat by Pulse 100 100 100 Oximetry O2 Sat by Pulse Oximetry [ Assessment] 09/15/17 09/15/17 09/15/17 22:30 22:45 23:10 Temperature Pulse Rate 90 91 H 91 H Pulse Rate [ Anterior Bilateral Upper Lobe] Pulse Rate [ Apical] Respiratory 20 20 20 Rate Respiratory Rate [Anterior Bilateral Upper Lobe] Blood Pressure 104/56 126/68 146/76 O2 Sat by Pulse 100 100 100 Oximetry O2 Sat by Pulse Oximetry [ Assessment] 09/15/17 09/15/17 09/15/17 23:16 23:30 23:46 Temperature Pulse Rate 91 H 93 H 93 H Pulse Rate [ Anterior Bilateral Upper Lobe] Pulse Rate [ Apical] Respiratory 12 19 23 Rate Respiratory Rate [Anterior Bilateral Upper Lobe] Blood Pressure O2 Sat by Pulse 100 100 100 Oximetry O2 Sat by Pulse Oximetry [ Assessment] 09/16/17 09/16/17 09/16/17 00:00 00:16 00:30 Temperature 97.4 F L Pulse Rate 96 H 101 H 95 H Pulse Rate [ Anterior Bilateral Upper Lobe] Pulse Rate [ 84 Apical] Respiratory 16 20 20 Rate Respiratory Rate [Anterior Bilateral Upper Lobe] Blood Pressure O2 Sat by Pulse 99 100 100 Oximetry O2 Sat by Pulse Oximetry [ Assessment] 09/16/17 09/16/17 09/16/17 00:46 01:00 01:16 Temperature Pulse Rate 103 H 96 H 98 H Pulse Rate [ Anterior Bilateral Upper Lobe] Pulse Rate [ Apical] Respiratory 12 20 20 Rate Respiratory Rate [Anterior Bilateral Upper Lobe] Blood Pressure O2 Sat by Pulse 100 100 100 Oximetry O2 Sat by Pulse Oximetry [ Assessment] 09/16/17 09/16/17 09/16/17 01:30 01:39 01:46 Temperature Pulse Rate 99 H 98 H Pulse Rate [ 95 H Anterior Bilateral Upper Lobe] Pulse Rate [ Apical] Respiratory 21 21 Rate Respiratory 20 Rate [Anterior Bilateral Upper Lobe] Blood Pressure O2 Sat by Pulse 100 100 Oximetry O2 Sat by Pulse Oximetry [ Assessment] 09/16/17 09/16/17 09/16/17 02:00 02:10 02:16 Temperature Pulse Rate 103 H 96 H Pulse Rate [ 103 H Anterior Bilateral Upper Lobe] Pulse Rate [ Apical] Respiratory 19 16 Rate Respiratory 20 Rate [Anterior Bilateral Upper Lobe] Blood Pressure O2 Sat by Pulse 100 100 Oximetry O2 Sat by Pulse 100 Oximetry [ Assessment] 09/16/17 09/16/17 09/16/17 02:30 02:46 03:00 Temperature Pulse Rate 96 H 97 H 96 H Pulse Rate [ Anterior Bilateral Upper Lobe] Pulse Rate [ Apical] Respiratory 16 17 19 Rate Respiratory Rate [Anterior Bilateral Upper Lobe] Blood Pressure O2 Sat by Pulse 99 100 100 Oximetry O2 Sat by Pulse Oximetry [ Assessment] 09/16/17 09/16/17 09/16/17 03:08 03:16 03:30 Temperature Pulse Rate 97 H 101 H 99 H Pulse Rate [ Anterior Bilateral Upper Lobe] Pulse Rate [ Apical] Respiratory 16 13 Rate Respiratory Rate [Anterior Bilateral Upper Lobe] Blood Pressure 122/65 O2 Sat by Pulse 100 100 100 Oximetry O2 Sat by Pulse Oximetry [ Assessment] 09/16/17 09/16/17 09/16/17 03:46 04:00 04:16 Temperature 97.1 F L Pulse Rate 97 H 100 H 91 H Pulse Rate [ Anterior Bilateral Upper Lobe] Pulse Rate [ 92 H Apical] Respiratory 14 19 22 Rate Respiratory Rate [Anterior Bilateral Upper Lobe] Blood Pressure O2 Sat by Pulse 100 100 100 Oximetry O2 Sat by Pulse Oximetry [ Assessment] 09/16/17 09/16/17 09/16/17 04:30 04:46 05:00 Temperature Pulse Rate 99 H 95 H 98 H Pulse Rate [ Anterior Bilateral Upper Lobe] Pulse Rate [ Apical] Respiratory 15 16 16 Rate Respiratory Rate [Anterior Bilateral Upper Lobe] Blood Pressure 109/50 O2 Sat by Pulse 99 99 Oximetry O2 Sat by Pulse Oximetry [ Assessment] 09/16/17 09/16/17 09/16/17 05:16 05:30 05:46 Temperature Pulse Rate 97 H 98 H 93 H Pulse Rate [ Anterior Bilateral Upper Lobe] Pulse Rate [ Apical] Respiratory 16 16 18 Rate Respiratory Rate [Anterior Bilateral Upper Lobe] Blood Pressure 109/50 109/50 91/55 O2 Sat by Pulse Oximetry O2 Sat by Pulse Oximetry [ Assessment] 09/16/17 09/16/17 09/16/17 06:00 06:16 06:30 Temperature Pulse Rate 94 H 94 H 91 H Pulse Rate [ Anterior Bilateral Upper Lobe] Pulse Rate [ Apical] Respiratory 21 20 20 Rate Respiratory Rate [Anterior Bilateral Upper Lobe] Blood Pressure 91/55 90/52 105/62 O2 Sat by Pulse 99 Oximetry O2 Sat by Pulse Oximetry [ Assessment] 09/16/17 09/16/17 09/16/17 06:46 07:00 07:16 Temperature Pulse Rate 91 H 91 H 93 H Pulse Rate [ Anterior Bilateral Upper Lobe] Pulse Rate [ Apical] Respiratory 21 16 22 Rate Respiratory Rate [Anterior Bilateral Upper Lobe] Blood Pressure 110/57 105/62 118/77 O2 Sat by Pulse 100 95 98 Oximetry O2 Sat by Pulse Oximetry [ Assessment] - General Appearance General appearance: well-developed, appears stated age, obese, other (on the vent, FiO2 30%) EENT: ATNC, PERRL Neck: supple Respiratory: Present: Clear to Ascultation Cardiology: regular, S1S2, no murmurs Gastrointestinal: other (dressing and ostomy noted) Integumentary: no rash Neurologic: other (alert, grimaces) Musculoskeletal: other (2+ edema of LEs noted) - Lab 09/16/17 05:30 09/16/17 05:30 Most recent lab results ABG pH 7.323 pH Units (7.350-7.450) L 09/09/17 Unknown ABG pCO2 41.1 mm Hg 09/09/17 Unknown ABG pO2 94.1 mm Hg (80.0-90.0) H 09/09/17 Unknown ABG HCO3 20.9 mmol/L (20.0-26.0) 09/09/17 Unknown ABG O2 Saturation 97.2 % (95.0-99.0) 09/09/17 Unknown Calcium 8.5 mg/dL (8.4-10.2) 09/16/17 05:30 Phosphorus 4.80 mg/dL (2.5-4.5) H 09/16/17 05:30 Magnesium 1.70 mg/dL (1.7-2.3) 09/16/17 05:30
--- NOTE | 2017-09-16 08:45 | Post Anesthesia Evaluation ---
- Post Anesthesia Evaluation Patient Participated: No Airway Patent: Yes Stable Respiratory Function: Yes Nausea/Vomiting: No Temp > 96.8F: Yes Pain Manageable: Yes Adequeate Hydration: Yes Anesthesia Complications: No Block Receding Appropriately: Not Applicable Patient on Ventilator: Yes
--- NOTE | 2017-09-16 09:16 | Progress Note ---
Assessment and Plan Acute bacterial peritonitis/abscess s/p exlap yesterday, showing reasonable bowel perforation which was corrected. Also possible bleeding/oozing site. WBC slowly improving on antibiotics,but still pressors dependent. Surgery and ID following Shock. As above. No heparin down vasopressin and low-dose Levophed. Possibly combination of hypovolemia, distributive shock Anemia.Small bleeding vessel on the week end,previously PRBC given. SBO w wound dehiscence. Acute respiratory failure, hypoxia. On Vent support. Morbid obesity, ESRD Sepsis, on antibiotics. LGIB status post acute blood loss anemia. Hypoalbuminemia AMS Rec: Consider weaning pressors. Already off vasopressin at this time. Continue antibiotics. Maintain same ventilator support repeated ABGs if necessary Physical therapy Discussed at the bedside with family and medical team. All verbal orders reviewed. All questions answered. Prognosis is guarded . critical care time was 35 minutes of [id number] evaluation and coordination of care Subjective Date of service: 09/16/17 Principal diagnosis: respiratory failure, sepsis, shock rectal bleeding Interval history: Arousable, on ventilator support support Objective Vital Signs - 12hr 09/15/17 09/15/17 09/15/17 21:49 21:55 22:00 Temperature 96.0 F L Pulse Rate 91 H 90 90 Pulse Rate [ Anterior Bilateral Upper Lobe] Pulse Rate [ Apical] Respiratory 20 20 20 Rate Respiratory Rate [Anterior Bilateral Upper Lobe] Blood Pressure 123/66 102/57 99/56 O2 Sat by Pulse 100 100 100 Oximetry O2 Sat by Pulse Oximetry [ Assessment] 09/15/17 09/15/17 09/15/17 22:05 22:15 22:16 Temperature Pulse Rate 92 H 90 90 Pulse Rate [ Anterior Bilateral Upper Lobe] Pulse Rate [ Apical] Respiratory 20 20 Rate Respiratory Rate [Anterior Bilateral Upper Lobe] Blood Pressure 97/58 94/52 95/52 O2 Sat by Pulse 100 100 100 Oximetry O2 Sat by Pulse Oximetry [ Assessment] 09/15/17 09/15/17 09/15/17 22:30 22:45 23:10 Temperature Pulse Rate 90 91 H 91 H Pulse Rate [ Anterior Bilateral Upper Lobe] Pulse Rate [ Apical] Respiratory 20 20 20 Rate Respiratory Rate [Anterior Bilateral Upper Lobe] Blood Pressure 104/56 126/68 146/76 O2 Sat by Pulse 100 100 100 Oximetry O2 Sat by Pulse Oximetry [ Assessment] 09/15/17 09/15/17 09/15/17 23:16 23:30 23:46 Temperature Pulse Rate 91 H 93 H 93 H Pulse Rate [ Anterior Bilateral Upper Lobe] Pulse Rate [ Apical] Respiratory 12 19 23 Rate Respiratory Rate [Anterior Bilateral Upper Lobe] Blood Pressure O2 Sat by Pulse 100 100 100 Oximetry O2 Sat by Pulse Oximetry [ Assessment] 09/16/17 09/16/17 09/16/17 00:00 00:16 00:30 Temperature 97.4 F L Pulse Rate 96 H 101 H 95 H Pulse Rate [ Anterior Bilateral Upper Lobe] Pulse Rate [ 84 Apical] Respiratory 16 20 20 Rate Respiratory Rate [Anterior Bilateral Upper Lobe] Blood Pressure O2 Sat by Pulse 99 100 100 Oximetry O2 Sat by Pulse Oximetry [ Assessment] 09/16/17 09/16/17 09/16/17 00:46 01:00 01:16 Temperature Pulse Rate 103 H 96 H 98 H Pulse Rate [ Anterior Bilateral Upper Lobe] Pulse Rate [ Apical] Respiratory 12 20 20 Rate Respiratory Rate [Anterior Bilateral Upper Lobe] Blood Pressure O2 Sat by Pulse 100 100 100 Oximetry O2 Sat by Pulse Oximetry [ Assessment] 09/16/17 09/16/17 09/16/17 01:30 01:39 01:46 Temperature Pulse Rate 99 H 98 H Pulse Rate [ 95 H Anterior Bilateral Upper Lobe] Pulse Rate [ Apical] Respiratory 21 21 Rate Respiratory 20 Rate [Anterior Bilateral Upper Lobe] Blood Pressure O2 Sat by Pulse 100 100 Oximetry O2 Sat by Pulse Oximetry [ Assessment] 09/16/17 09/16/17 09/16/17 02:00 02:10 02:16 Temperature Pulse Rate 103 H 96 H Pulse Rate [ 103 H Anterior Bilateral Upper Lobe] Pulse Rate [ Apical] Respiratory 19 16 Rate Respiratory 20 Rate [Anterior Bilateral Upper Lobe] Blood Pressure O2 Sat by Pulse 100 100 Oximetry O2 Sat by Pulse 100 Oximetry [ Assessment] 09/16/17 09/16/17 09/16/17 02:30 02:46 03:00 Temperature Pulse Rate 96 H 97 H 96 H Pulse Rate [ Anterior Bilateral Upper Lobe] Pulse Rate [ Apical] Respiratory 16 17 19 Rate Respiratory Rate [Anterior Bilateral Upper Lobe] Blood Pressure O2 Sat by Pulse 99 100 100 Oximetry O2 Sat by Pulse Oximetry [ Assessment] 09/16/17 09/16/17 09/16/17 03:08 03:16 03:30 Temperature Pulse Rate 97 H 101 H 99 H Pulse Rate [ Anterior Bilateral Upper Lobe] Pulse Rate [ Apical] Respiratory 16 13 Rate Respiratory Rate [Anterior Bilateral Upper Lobe] Blood Pressure 122/65 O2 Sat by Pulse 100 100 100 Oximetry O2 Sat by Pulse Oximetry [ Assessment] 09/16/17 09/16/17 09/16/17 03:46 04:00 04:16 Temperature 97.1 F L Pulse Rate 97 H 100 H 91 H Pulse Rate [ Anterior Bilateral Upper Lobe] Pulse Rate [ 92 H Apical] Respiratory 14 19 22 Rate Respiratory Rate [Anterior Bilateral Upper Lobe] Blood Pressure O2 Sat by Pulse 100 100 100 Oximetry O2 Sat by Pulse Oximetry [ Assessment] 09/16/17 09/16/17 09/16/17 04:30 04:46 05:00 Temperature Pulse Rate 99 H 95 H 98 H Pulse Rate [ Anterior Bilateral Upper Lobe] Pulse Rate [ Apical] Respiratory 15 16 16 Rate Respiratory Rate [Anterior Bilateral Upper Lobe] Blood Pressure 109/50 O2 Sat by Pulse 99 99 Oximetry O2 Sat by Pulse Oximetry [ Assessment] 09/16/17 09/16/17 09/16/17 05:16 05:30 05:46 Temperature Pulse Rate 97 H 98 H 93 H Pulse Rate [ Anterior Bilateral Upper Lobe] Pulse Rate [ Apical] Respiratory 16 16 18 Rate Respiratory Rate [Anterior Bilateral Upper Lobe] Blood Pressure 109/50 109/50 91/55 O2 Sat by Pulse Oximetry O2 Sat by Pulse Oximetry [ Assessment] 09/16/17 09/16/17 09/16/17 06:00 06:16 06:30 Temperature Pulse Rate 94 H 94 H 91 H Pulse Rate [ Anterior Bilateral Upper Lobe] Pulse Rate [ Apical] Respiratory 21 20 20 Rate Respiratory Rate [Anterior Bilateral Upper Lobe] Blood Pressure 91/55 90/52 105/62 O2 Sat by Pulse 99 Oximetry O2 Sat by Pulse Oximetry [ Assessment] 09/16/17 09/16/17 09/16/17 06:46 07:00 07:16 Temperature Pulse Rate 91 H 91 H 93 H Pulse Rate [ Anterior Bilateral Upper Lobe] Pulse Rate [ Apical] Respiratory 21 16 22 Rate Respiratory Rate [Anterior Bilateral Upper Lobe] Blood Pressure 110/57 105/62 118/77 O2 Sat by Pulse 100 95 98 Oximetry O2 Sat by Pulse Oximetry [ Assessment] 09/16/17 09/16/17 09/16/17 07:30 07:46 08:00 Temperature 98.7 F Pulse Rate 99 H 94 H 100 H Pulse Rate [ Anterior Bilateral Upper Lobe] Pulse Rate [ Apical] Respiratory 19 21 15 Rate Respiratory Rate [Anterior Bilateral Upper Lobe] Blood Pressure 118/77 122/94 109/64 O2 Sat by Pulse 100 98 99 Oximetry O2 Sat by Pulse Oximetry [ Assessment] 09/16/17 09/16/17 09/16/17 08:10 08:16 08:30 Temperature Pulse Rate 94 H 95 H Pulse Rate [ Anterior Bilateral Upper Lobe] Pulse Rate [ 94 H Apical] Respiratory 21 20 19 Rate Respiratory Rate [Anterior Bilateral Upper Lobe] Blood Pressure 103/50 103/50 O2 Sat by Pulse 99 100 99 Oximetry O2 Sat by Pulse Oximetry [ Assessment] 09/16/17 09/16/17 08:46 09:00 Temperature Pulse Rate 95 H 94 H Pulse Rate [ Anterior Bilateral Upper Lobe] Pulse Rate [ Apical] Respiratory 20 20 Rate Respiratory Rate [Anterior Bilateral Upper Lobe] Blood Pressure 96/51 101/53 O2 Sat by Pulse 100 Oximetry O2 Sat by Pulse Oximetry [ Assessment] Constitutional: no acute distress, alert, other (critically ill on vent, obese) Eyes: non-icteric ENT: oropharynx moist, other (NGT) Neck: supple, no lymphadenopathy, no JVD (large neck), other (trach in position , no bleeding) Effort: mildly labored Ascultation: Bilateral: clear ( ), diminished breath sounds (Limited expansion) Cardiovascular: regular rate and rhythm Gastrointestinal: absent bowel sounds, non-tender, other (abdominal incision with dressing , obese. Drain in place , no bleeding noted) Integumentary: normal Extremities: no cyanosis, pink and warm, edema (2+ bilateral LE edema) Neurologic: non-focal exam, pupils equal and round, other (RA SS -0) Psychiatric: mood appropriate, affect normal CBC and BMP: 09/16/17 05:30 09/16/17 05:30 ABG, PT/INR, D-dimer: ABG POC ABG pH 7.347 (7.35-7.45) L 09/13/17 11:36 ABG pH 7.323 pH Units (7.350-7.450) L 09/09/17 Unknown POC ABG pCO2 34.3 (35-45) L 09/13/17 11:36 ABG pCO2 41.1 mm Hg 09/09/17 Unknown POC ABG pO2 134 (80-105) H 09/13/17 11:36 ABG pO2 94.1 mm Hg (80.0-90.0) H 09/09/17 Unknown POC ABG HCO3 18.8 09/13/17 11:36 POC ABG Total CO2 20 09/13/17 11:36 POC ABG O2 Sat 99 09/13/17 11:36 ABG O2 Saturation 97.2 % (95.0-99.0) 09/09/17 Unknown PT/INR, D-dimer PT 15.4 Sec. (12.2-14.9) H 09/15/17 12:45 INR 1.16 (0.87-1.13) H 09/15/17 12:45 Abnormal lab findings: Abnormal Labs 08/08/17 08/08/17 08/09/17 21:23 21:31 11:19 WBC 15.7 H RBC 2.93 L Hgb 8.7 L Hct 26.8 L MCV MCH RDW 19.2 H Plt Count Lymph % (Auto) Bailey % (Auto) Bailey # Seg Neutrophils % Seg Neuts % (Manual) Lymphocytes % (Manual) Monocytes % (Manual) Nucleated RBC % Seg Neutrophils # Seg Neutrophils # Man Lymphocytes # (Manual) Monocytes # (Manual) Eosinophils # (Manual) Basophils # (Manual) PT INR POC ABG pH 7.490 H ABG pH POC ABG pCO2 POC ABG pO2 122 H ABG pO2 ABG O2 Saturation ABG Base Excess ABG Hemoglobin Oxyhemoglobin Sodium Potassium Chloride Carbon Dioxide BUN Creatinine Glucose POC Glucose Calcium Phosphorus Magnesium Iron TIBC Ferritin Total Bilirubin AST ALT Alkaline Phosphatase Total Creatine Kinase Troponin T 0.133 H* C-Reactive Protein Total Protein Albumin Triglycerides HDL Cholesterol 26 L Miscellaneous Test Crossmatch 08/09/17 08/10/17 08/10/17 13:25 04:45 04:45 WBC 15.5 H RBC 2.97 L Hgb 8.9 L Hct 27.0 L MCV MCH RDW 19.2 H Plt Count Lymph % (Auto) Bailey % (Auto) Bailey # Seg Neutrophils % Seg Neuts % (Manual) 73.0 H Lymphocytes % (Manual) 7.0 L Monocytes % (Manual) 14.0 H Nucleated RBC % Seg Neutrophils # Seg Neutrophils # Man 11.3 H Lymphocytes # (Manual) 1.1 L Monocytes # (Manual) 2.2 H Eosinophils # (Manual) Basophils # (Manual) 0.2 H PT INR POC ABG pH ABG pH POC ABG pCO2 POC ABG pO2 ABG pO2 ABG O2 Saturation ABG Base Excess ABG Hemoglobin Oxyhemoglobin Sodium Potassium 3.3 L Chloride 97.3 L Carbon Dioxide 21 L BUN 23 H Creatinine 6.5 H Glucose POC Glucose Calcium 7.3 L Phosphorus Magnesium Iron TIBC Ferritin Total Bilirubin AST ALT Alkaline Phosphatase 138 H Total Creatine Kinase Troponin T 0.132 H* C-Reactive Protein Total Protein 4.8 L Albumin 1.4 L Triglycerides HDL Cholesterol Miscellaneous Test Crossmatch 08/11/17 08/11/17 08/12/17 04:00 04:00 05:50 WBC 19.3 H RBC 3.10 L Hgb 9.5 L Hct 28.2 L MCV MCH RDW 19.2 H Plt Count 463 H Lymph % (Auto) 7.5 L Bailey % (Auto) 14.6 H Bailey # 2.8 H Seg Neutrophils % 77.0 H Seg Neuts % (Manual) Lymphocytes % (Manual) Monocytes % (Manual) Nucleated RBC % Seg Neutrophils # 14.8 H Seg Neutrophils # Man Lymphocytes # (Manual) Monocytes # (Manual) Eosinophils # (Manual) Basophils # (Manual) PT INR POC ABG pH ABG pH POC ABG pCO2 POC ABG pO2 ABG pO2 ABG O2 Saturation ABG Base Excess ABG Hemoglobin Oxyhemoglobin Sodium 136 L 136 L Potassium 3.3 L Chloride 96.3 L 96.6 L Carbon Dioxide BUN 26 H 26 H Creatinine 6.4 H 6.2 H Glucose 135 H 133 H POC Glucose Calcium 8.2 L Phosphorus Magnesium 1.30 L Iron TIBC Ferritin Total Bilirubin AST ALT Alkaline Phosphatase 139 H Total Creatine Kinase Troponin T C-Reactive Protein Total Protein 5.5 L Albumin 1.7 L Triglycerides HDL Cholesterol Miscellaneous Test Crossmatch 08/12/17 08/12/17 08/12/17 05:50 05:50 05:50 WBC 20.1 H RBC 3.06 L Hgb 9.3 L Hct 27.9 L MCV MCH RDW 18.4 H Plt Count 471 H Lymph % (Auto) Bailey % (Auto) Bailey # Seg Neutrophils % Seg Neuts % (Manual) 85.0 H Lymphocytes % (Manual) 8.0 L Monocytes % (Manual) Nucleated RBC % Seg Neutrophils # Seg Neutrophils # Man 17.1 H Lymphocytes # (Manual) Monocytes # (Manual) 1.0 H Eosinophils # (Manual) Basophils # (Manual) PT 15.2 H INR 1.14 H POC ABG pH ABG pH POC ABG pCO2 POC ABG pO2 ABG pO2 ABG O2 Saturation ABG Base Excess ABG Hemoglobin Oxyhemoglobin Sodium Potassium Chloride Carbon Dioxide BUN Creatinine Glucose POC Glucose Calcium Phosphorus Magnesium Iron TIBC Ferritin Total Bilirubin AST ALT Alkaline Phosphatase Total Creatine Kinase Troponin T C-Reactive Protein 28.90 H Total Protein Albumin Triglycerides HDL Cholesterol Miscellaneous Test Crossmatch 08/12/17 08/13/17 08/13/17 16:23 06:14 06:14 WBC 21.8 H RBC 3.11 L Hgb 9.4 L Hct 28.2 L MCV MCH RDW 18.2 H Plt Count 492 H Lymph % (Auto) Bailey % (Auto) Bailey # Seg Neutrophils % Seg Neuts % (Manual) 73.0 H Lymphocytes % (Manual) 2.0 L Monocytes % (Manual) 15 H Nucleated RBC % Seg Neutrophils # Seg Neutrophils # Man 15.9 H Lymphocytes # (Manual) 0.4 L Monocytes # (Manual) 2.4 H Eosinophils # (Manual) Basophils # (Manual) PT INR POC ABG pH ABG pH POC ABG pCO2 POC ABG pO2 ABG pO2 ABG O2 Saturation ABG Base Excess ABG Hemoglobin Oxyhemoglobin Sodium Potassium Chloride 96.2 L Carbon Dioxide BUN 28 H Creatinine 5.6 H Glucose 114 H POC Glucose Calcium Phosphorus Magnesium Iron TIBC Ferritin Total Bilirubin AST ALT Alkaline Phosphatase Total Creatine Kinase Troponin T C-Reactive Protein 26.10 H Total Protein Albumin Triglycerides HDL Cholesterol Miscellaneous Test Crossmatch 08/13/17 08/14/17 08/14/17 16:39 04:00 04:00 WBC 22.1 H RBC 3.25 L Hgb 9.9 L Hct 29.5 L MCV MCH RDW 17.9 H Plt Count 525 H Lymph % (Auto) Bailey % (Auto) Bailey # Seg Neutrophils % Seg Neuts % (Manual) 74.0 H Lymphocytes % (Manual) 8.0 L Monocytes % (Manual) 12.0 H Nucleated RBC % Seg Neutrophils # Seg Neutrophils # Man 16.4 H Lymphocytes # (Manual) Monocytes # (Manual) 2.7 H Eosinophils # (Manual) Basophils # (Manual) PT INR POC ABG pH ABG pH POC ABG pCO2 POC ABG pO2 ABG pO2 ABG O2 Saturation ABG Base Excess ABG Hemoglobin Oxyhemoglobin Sodium 134 L Potassium 3.3 L Chloride 93.3 L Carbon Dioxide BUN 27 H Creatinine 6.0 H Glucose 152 H POC Glucose 151 H Calcium Phosphorus Magnesium Iron TIBC Ferritin Total Bilirubin AST ALT Alkaline Phosphatase Total Creatine Kinase Troponin T C-Reactive Protein Total Protein Albumin Triglycerides HDL Cholesterol Miscellaneous Test Crossmatch 08/15/17 08/16/17 08/16/17 09:10 09:50 09:50 WBC 31.1 H RBC 3.21 L Hgb 9.6 L Hct 29.3 L MCV MCH RDW 18.1 H Plt Count 642 H Lymph % (Auto) Bailey % (Auto) Bailey # Seg Neutrophils % Seg Neuts % (Manual) 74.0 H Lymphocytes % (Manual) 4.0 L Monocytes % (Manual) 9.0 H Nucleated RBC % Seg Neutrophils # Seg Neutrophils # Man 23.0 H Lymphocytes # (Manual) Monocytes # (Manual) 2.8 H Eosinophils # (Manual) Basophils # (Manual) PT INR POC ABG pH ABG pH POC ABG pCO2 POC ABG pO2 ABG pO2 ABG O2 Saturation ABG Base Excess ABG Hemoglobin Oxyhemoglobin Sodium 136 L 136 L Potassium 3.5 L Chloride 97.6 L 94.9 L Carbon Dioxide BUN 27 H 28 H Creatinine 5.6 H 5.5 H Glucose 117 H 103 H POC Glucose Calcium Phosphorus Magnesium Iron TIBC Ferritin Total Bilirubin AST ALT Alkaline Phosphatase 137 H Total Creatine Kinase Troponin T C-Reactive Protein Total Protein 5.4 L Albumin 1.5 L Triglycerides HDL Cholesterol Miscellaneous Test Crossmatch 08/16/17 08/17/17 08/17/17 09:50 05:00 06:26 WBC RBC Hgb Hct MCV MCH RDW Plt Count Lymph % (Auto) Bailey % (Auto) Bailey # Seg Neutrophils % Seg Neuts % (Manual) Lymphocytes % (Manual) Monocytes % (Manual) Nucleated RBC % Seg Neutrophils # Seg Neutrophils # Man Lymphocytes # (Manual) Monocytes # (Manual) Eosinophils # (Manual) Basophils # (Manual) PT INR POC ABG pH ABG pH POC ABG pCO2 POC ABG pO2 ABG pO2 ABG O2 Saturation ABG Base Excess ABG Hemoglobin Oxyhemoglobin Sodium 134 L Potassium 3.0 L Chloride 97.8 L Carbon Dioxide BUN 30 H Creatinine 5.3 H Glucose 147 H POC Glucose 165 H Calcium 7.5 L Phosphorus Magnesium Iron TIBC Ferritin Total Bilirubin AST ALT Alkaline Phosphatase Total Creatine Kinase Troponin T C-Reactive Protein 32.30 H Total Protein Albumin Triglycerides HDL Cholesterol Miscellaneous Test Crossmatch 08/17/17 08/17/17 08/17/17 10:56 11:20 11:20 WBC 39.1 H RBC 3.10 L Hgb 9.2 L Hct 28.6 L MCV MCH RDW 18.3 H Plt Count 580 H Lymph % (Auto) Bailey % (Auto) Bailey # Seg Neutrophils % Seg Neuts % (Manual) 89.5 H Lymphocytes % (Manual) 3.5 L Monocytes % (Manual) Nucleated RBC % Seg Neutrophils # Seg Neutrophils # Man 35.0 H Lymphocytes # (Manual) Monocytes # (Manual) 2.5 H Eosinophils # (Manual) Basophils # (Manual) 0.2 H PT INR POC ABG pH 7.464 H ABG pH POC ABG pCO2 34.1 L POC ABG pO2 75 L ABG pO2 ABG O2 Saturation ABG Base Excess ABG Hemoglobin Oxyhemoglobin Sodium Potassium Chloride Carbon Dioxide BUN Creatinine Glucose POC Glucose Calcium Phosphorus Magnesium Iron TIBC Ferritin Total Bilirubin AST ALT Alkaline Phosphatase Total Creatine Kinase Troponin T C-Reactive Protein Total Protein Albumin Triglycerides HDL Cholesterol Miscellaneous Test Flexitest 1 H Crossmatch 08/17/17 08/17/17 08/17/17 11:20 16:57 20:20 WBC 34.4 H RBC 2.81 L Hgb 8.4 L Hct 26.0 L MCV MCH RDW 17.8 H Plt Count 455 H Lymph % (Auto) Bailey % (Auto) Bailey # Seg Neutrophils % Seg Neuts % (Manual) Lymphocytes % (Manual) 3.5 L Monocytes % (Manual) Nucleated RBC % 5.0 H Seg Neutrophils # Seg Neutrophils # Man 16.5 H Lymphocytes # (Manual) Monocytes # (Manual) 1.0 H Eosinophils # (Manual) Basophils # (Manual) PT 16.0 H INR 1.29 H POC ABG pH ABG pH POC ABG pCO2 POC ABG pO2 ABG pO2 ABG O2 Saturation ABG Base Excess ABG Hemoglobin Oxyhemoglobin Sodium 135 L Potassium 2.9 L* Chloride Carbon Dioxide 20 L BUN 32 H Creatinine 5.4 H Glucose 129 H POC Glucose Calcium 7.5 L Phosphorus Magnesium 1.50 L Iron TIBC Ferritin Total Bilirubin AST 85 H ALT Alkaline Phosphatase Total Creatine Kinase Troponin T C-Reactive Protein Total Protein 4.0 L D Albumin 1.6 L Triglycerides HDL Cholesterol Miscellaneous Test Crossmatch 08/17/17 08/17/17 08/18/17 20:54 23:47 04:26 WBC RBC Hgb Hct MCV MCH RDW Plt Count Lymph % (Auto) Bailey % (Auto) Bailey # Seg Neutrophils % Seg Neuts % (Manual) Lymphocytes % (Manual) Monocytes % (Manual) Nucleated RBC % Seg Neutrophils # Seg Neutrophils # Man Lymphocytes # (Manual) Monocytes # (Manual) Eosinophils # (Manual) Basophils # (Manual) PT INR POC ABG pH 7.557 H ABG pH POC ABG pCO2 23.1 L 29.0 L POC ABG pO2 187 H 148 H ABG pO2 ABG O2 Saturation ABG Base Excess ABG Hemoglobin Oxyhemoglobin Sodium Potassium Chloride Carbon Dioxide BUN Creatinine Glucose POC Glucose 188 H Calcium Phosphorus Magnesium Iron TIBC Ferritin Total Bilirubin AST ALT Alkaline Phosphatase Total Creatine Kinase Troponin T C-Reactive Protein Total Protein Albumin Triglycerides HDL Cholesterol Miscellaneous Test Crossmatch 08/18/17 08/18/17 08/18/17 05:51 11:44 17:07 WBC RBC Hgb Hct MCV MCH RDW Plt Count Lymph % (Auto) Bailey % (Auto) Bailey # Seg Neutrophils % Seg Neuts % (Manual) Lymphocytes % (Manual) Monocytes % (Manual) Nucleated RBC % Seg Neutrophils # Seg Neutrophils # Man Lymphocytes # (Manual) Monocytes # (Manual) Eosinophils # (Manual) Basophils # (Manual) PT INR POC ABG pH ABG pH POC ABG pCO2 POC ABG pO2 ABG pO2 ABG O2 Saturation ABG Base Excess ABG Hemoglobin Oxyhemoglobin Sodium Potassium Chloride Carbon Dioxide BUN Creatinine Glucose POC Glucose 202 H 195 H 182 H Calcium Phosphorus Magnesium Iron TIBC Ferritin Total Bilirubin AST ALT Alkaline Phosphatase Total Creatine Kinase Troponin T C-Reactive Protein Total Protein Albumin Triglycerides HDL Cholesterol Miscellaneous Test Crossmatch 08/18/17 08/18/17 08/18/17 23:45 Unknown Unknown WBC 39.0 H RBC 2.84 L Hgb 8.4 L Hct 26.5 L MCV MCH RDW 18.0 H Plt Count 476 H Lymph % (Auto) Bailey % (Auto) Bailey # Seg Neutrophils % Seg Neuts % (Manual) Lymphocytes % (Manual) 7.0 L Monocytes % (Manual) 10.0 H Nucleated RBC % 3.0 H Seg Neutrophils # Seg Neutrophils # Man 15.6 H Lymphocytes # (Manual) Monocytes # (Manual) 3.9 H Eosinophils # (Manual) Basophils # (Manual) PT INR POC ABG pH ABG pH POC ABG pCO2 POC ABG pO2 ABG pO2 ABG O2 Saturation ABG Base Excess ABG Hemoglobin Oxyhemoglobin Sodium Potassium Chloride Carbon Dioxide 19 L BUN 34 H Creatinine 5.6 H Glucose 201 H POC Glucose 163 H Calcium 7.8 L Phosphorus 1.90 L D Magnesium 1.60 L Iron TIBC Ferritin Total Bilirubin AST ALT Alkaline Phosphatase Total Creatine Kinase Troponin T C-Reactive Protein Total Protein Albumin Triglycerides HDL Cholesterol Miscellaneous Test Crossmatch 08/19/17 08/19/17 08/19/17 04:18 05:00 05:00 WBC 40.0 H RBC 2.46 L Hgb 7.3 L Hct 22.6 L MCV MCH RDW 18.1 H Plt Count Lymph % (Auto) Bailey % (Auto) Bailey # Seg Neutrophils % Seg Neuts % (Manual) Lymphocytes % (Manual) 8.0 L Monocytes % (Manual) Nucleated RBC % 2.0 H Seg Neutrophils # Seg Neutrophils # Man 16.4 H Lymphocytes # (Manual) Monocytes # (Manual) 1.2 H Eosinophils # (Manual) 1.2 H Basophils # (Manual) PT INR POC ABG pH 7.463 H ABG pH POC ABG pCO2 29.7 L POC ABG pO2 134 H ABG pO2 ABG O2 Saturation ABG Base Excess ABG Hemoglobin Oxyhemoglobin Sodium Potassium 5.1 H D Chloride Carbon Dioxide 20 L BUN 40 H Creatinine 5.3 H Glucose 128 H POC Glucose Calcium 7.8 L Phosphorus 1.90 L Magnesium Iron TIBC Ferritin Total Bilirubin AST ALT Alkaline Phosphatase Total Creatine Kinase Troponin T C-Reactive Protein Total Protein Albumin Triglycerides HDL Cholesterol Miscellaneous Test Crossmatch 08/19/17 08/19/17 08/19/17 05:19 07:37 09:52 WBC 45.0 H* RBC 2.50 L Hgb 7.5 L Hct 24.5 L MCV 98 H MCH RDW 18.4 H Plt Count Lymph % (Auto) Bailey % (Auto) Bailey # Seg Neutrophils % Seg Neuts % (Manual) 81.5 H Lymphocytes % (Manual) 4.0 L Monocytes % (Manual) Nucleated RBC % 1.0 H Seg Neutrophils # Seg Neutrophils # Man 36.7 H Lymphocytes # (Manual) Monocytes # (Manual) Eosinophils # (Manual) Basophils # (Manual) PT INR POC ABG pH ABG pH POC ABG pCO2 POC ABG pO2 ABG pO2 ABG O2 Saturation ABG Base Excess ABG Hemoglobin Oxyhemoglobin Sodium Potassium Chloride Carbon Dioxide BUN Creatinine Glucose POC Glucose 142 H Calcium Phosphorus Magnesium Iron TIBC Ferritin Total Bilirubin AST ALT Alkaline Phosphatase Total Creatine Kinase Troponin T C-Reactive Protein 34.20 H Total Protein Albumin Triglycerides HDL Cholesterol Miscellaneous Test Crossmatch 08/19/17 08/19/17 08/20/17 11:16 18:12 00:35 WBC RBC Hgb Hct MCV MCH RDW Plt Count Lymph % (Auto) Bailey % (Auto) Bailey # Seg Neutrophils % Seg Neuts % (Manual) Lymphocytes % (Manual) Monocytes % (Manual) Nucleated RBC % Seg Neutrophils # Seg Neutrophils # Man Lymphocytes # (Manual) Monocytes # (Manual) Eosinophils # (Manual) Basophils # (Manual) PT INR POC ABG pH ABG pH POC ABG pCO2 POC ABG pO2 ABG pO2 ABG O2 Saturation ABG Base Excess ABG Hemoglobin Oxyhemoglobin Sodium Potassium Chloride Carbon Dioxide BUN Creatinine Glucose POC Glucose 143 H 137 H 164 H Calcium Phosphorus Magnesium Iron TIBC Ferritin Total Bilirubin AST ALT Alkaline Phosphatase Total Creatine Kinase Troponin T C-Reactive Protein Total Protein Albumin Triglycerides HDL Cholesterol Miscellaneous Test Crossmatch 08/20/17 08/20/17 08/20/17 03:20 03:20 04:00 WBC 48.0 H* RBC 2.55 L Hgb 7.6 L Hct 23.4 L MCV MCH RDW 18.4 H Plt Count Lymph % (Auto) Bailey % (Auto) Bailey # Seg Neutrophils % Seg Neuts % (Manual) 90.0 H Lymphocytes % (Manual) 3.0 L Monocytes % (Manual) Nucleated RBC % Seg Neutrophils # Seg Neutrophils # Man 43.2 H Lymphocytes # (Manual) Monocytes # (Manual) 1.4 H Eosinophils # (Manual) 0.5 H Basophils # (Manual) PT INR POC ABG pH 7.499 H ABG pH POC ABG pCO2 29.1 L POC ABG pO2 ABG pO2 ABG O2 Saturation ABG Base Excess ABG Hemoglobin Oxyhemoglobin Sodium 135 L Potassium Chloride Carbon Dioxide BUN 28 H Creatinine 4.0 H Glucose 140 H POC Glucose Calcium 8.0 L Phosphorus 1.70 L Magnesium 1.60 L Iron TIBC Ferritin Total Bilirubin AST ALT Alkaline Phosphatase Total Creatine Kinase Troponin T C-Reactive Protein Total Protein Albumin Triglycerides HDL Cholesterol Miscellaneous Test Crossmatch 08/20/17 08/20/17 08/20/17 05:02 12:05 13:12 WBC RBC Hgb Hct MCV MCH RDW Plt Count Lymph % (Auto) Bailey % (Auto) Bailey # Seg Neutrophils % Seg Neuts % (Manual) Lymphocytes % (Manual) Monocytes % (Manual) Nucleated RBC % Seg Neutrophils # Seg Neutrophils # Man Lymphocytes # (Manual) Monocytes # (Manual) Eosinophils # (Manual) Basophils # (Manual) PT INR POC ABG pH 7.537 H ABG pH POC ABG pCO2 27.9 L POC ABG pO2 79 L ABG pO2 ABG O2 Saturation ABG Base Excess ABG Hemoglobin Oxyhemoglobin Sodium Potassium Chloride Carbon Dioxide BUN Creatinine Glucose POC Glucose 158 H 203 H Calcium Phosphorus Magnesium Iron TIBC Ferritin Total Bilirubin AST ALT Alkaline Phosphatase Total Creatine Kinase Troponin T C-Reactive Protein Total Protein Albumin Triglycerides HDL Cholesterol Miscellaneous Test Crossmatch 08/20/17 08/21/17 08/21/17 17:13 00:47 03:14 WBC RBC Hgb Hct MCV MCH RDW Plt Count Lymph % (Auto) Bailey % (Auto) Bailey # Seg Neutrophils % Seg Neuts % (Manual) Lymphocytes % (Manual) Monocytes % (Manual) Nucleated RBC % Seg Neutrophils # Seg Neutrophils # Man Lymphocytes # (Manual) Monocytes # (Manual) Eosinophils # (Manual) Basophils # (Manual) PT INR POC ABG pH 7.481 H ABG pH POC ABG pCO2 29.6 L POC ABG pO2 ABG pO2 ABG O2 Saturation ABG Base Excess ABG Hemoglobin Oxyhemoglobin Sodium Potassium Chloride Carbon Dioxide BUN Creatinine Glucose POC Glucose 188 H 109 H Calcium Phosphorus Magnesium Iron TIBC Ferritin Total Bilirubin AST ALT Alkaline Phosphatase Total Creatine Kinase Troponin T C-Reactive Protein Total Protein Albumin Triglycerides HDL Cholesterol Miscellaneous Test Crossmatch 08/21/17 08/21/17 08/21/17 05:05 06:50 06:50 WBC 44.7 H* RBC 2.41 L Hgb 7.1 L Hct 22.1 L MCV MCH RDW 18.3 H Plt Count Lymph % (Auto) Bailey % (Auto) Bailey # Seg Neutrophils % Seg Neuts % (Manual) 89.0 H Lymphocytes % (Manual) 0 L Monocytes % (Manual) Nucleated RBC % 1.0 H Seg Neutrophils # Seg Neutrophils # Man 39.8 H Lymphocytes # (Manual) 0.0 L Monocytes # (Manual) 1.3 H Eosinophils # (Manual) Basophils # (Manual) PT INR POC ABG pH ABG pH POC ABG pCO2 POC ABG pO2 ABG pO2 ABG O2 Saturation ABG Base Excess ABG Hemoglobin Oxyhemoglobin Sodium 135 L Potassium Chloride Carbon Dioxide BUN 39 H Creatinine 4.4 H Glucose 147 H POC Glucose 166 H Calcium 8.1 L Phosphorus Magnesium Iron TIBC Ferritin Total Bilirubin AST ALT < 5 L Alkaline Phosphatase 164 H Total Creatine Kinase Troponin T C-Reactive Protein Total Protein 4.7 L Albumin 1.4 L Triglycerides HDL Cholesterol Miscellaneous Test Crossmatch 08/21/17 08/21/17 08/21/17 08:00 12:21 17:02 WBC RBC Hgb Hct MCV MCH RDW Plt Count Lymph % (Auto) Bailey % (Auto) Bailey # Seg Neutrophils % Seg Neuts % (Manual) Lymphocytes % (Manual) Monocytes % (Manual) Nucleated RBC % Seg Neutrophils # Seg Neutrophils # Man Lymphocytes # (Manual) Monocytes # (Manual) Eosinophils # (Manual) Basophils # (Manual) PT INR POC ABG pH ABG pH POC ABG pCO2 POC ABG pO2 ABG pO2 ABG O2 Saturation ABG Base Excess ABG Hemoglobin Oxyhemoglobin Sodium Potassium Chloride Carbon Dioxide BUN Creatinine Glucose POC Glucose 147 H 135 H Calcium Phosphorus Magnesium Iron TIBC Ferritin Total Bilirubin AST ALT Alkaline Phosphatase Total Creatine Kinase Troponin T C-Reactive Protein Total Protein Albumin Triglycerides HDL Cholesterol Miscellaneous Test Crossmatch See Detail 08/21/17 08/22/17 08/22/17 23:38 03:40 03:40 WBC 42.5 H* RBC 2.88 L Hgb 8.5 L Hct 26.3 L MCV MCH RDW 17.9 H Plt Count Lymph % (Auto) Bailey % (Auto) Bailey # Seg Neutrophils % Seg Neuts % (Manual) Lymphocytes % (Manual) 5.0 L Monocytes % (Manual) Nucleated RBC % Seg Neutrophils # Seg Neutrophils # Man 19.6 H Lymphocytes # (Manual) Monocytes # (Manual) 2.6 H Eosinophils # (Manual) Basophils # (Manual) PT INR POC ABG pH ABG pH POC ABG pCO2 POC ABG pO2 ABG pO2 ABG O2 Saturation ABG Base Excess ABG Hemoglobin Oxyhemoglobin Sodium Potassium 3.3 L D Chloride Carbon Dioxide BUN 27 H Creatinine 2.9 H Glucose 144 H POC Glucose 251 H Calcium 8.0 L Phosphorus 2.40 L Magnesium Iron TIBC Ferritin Total Bilirubin AST ALT Alkaline Phosphatase Total Creatine Kinase Troponin T C-Reactive Protein Total Protein Albumin Triglycerides HDL Cholesterol Miscellaneous Test Crossmatch 08/22/17 08/22/17 08/22/17 06:37 08:50 11:25 WBC RBC Hgb Hct MCV MCH RDW Plt Count Lymph % (Auto) Bailey % (Auto) Bailey # Seg Neutrophils % Seg Neuts % (Manual) Lymphocytes % (Manual) Monocytes % (Manual) Nucleated RBC % Seg Neutrophils # Seg Neutrophils # Man Lymphocytes # (Manual) Monocytes # (Manual) Eosinophils # (Manual) Basophils # (Manual) PT INR POC ABG pH ABG pH POC ABG pCO2 POC ABG pO2 ABG pO2 ABG O2 Saturation ABG Base Excess ABG Hemoglobin Oxyhemoglobin Sodium Potassium Chloride Carbon Dioxide BUN Creatinine Glucose POC Glucose 152 H 175 H Calcium Phosphorus Magnesium Iron TIBC Ferritin Total Bilirubin AST ALT Alkaline Phosphatase Total Creatine Kinase Troponin T C-Reactive Protein Total Protein Albumin Triglycerides HDL Cholesterol Miscellaneous Test Flexitest 1 H Crossmatch 08/22/17 08/22/17 08/22/17 16:25 17:56 23:03 WBC RBC Hgb Hct MCV MCH RDW Plt Count Lymph % (Auto) Bailey % (Auto) Bailey # Seg Neutrophils % Seg Neuts % (Manual) Lymphocytes % (Manual) Monocytes % (Manual) Nucleated RBC % Seg Neutrophils # Seg Neutrophils # Man Lymphocytes # (Manual) Monocytes # (Manual) Eosinophils # (Manual) Basophils # (Manual) PT INR POC ABG pH ABG pH POC ABG pCO2 POC ABG pO2 ABG pO2 ABG O2 Saturation ABG Base Excess ABG Hemoglobin Oxyhemoglobin Sodium Potassium Chloride Carbon Dioxide BUN Creatinine Glucose POC Glucose 232 H 192 H Calcium Phosphorus Magnesium Iron TIBC Ferritin Total Bilirubin AST ALT Alkaline Phosphatase Total Creatine Kinase Troponin T C-Reactive Protein 30.70 H Total Protein Albumin Triglycerides HDL Cholesterol Miscellaneous Test Crossmatch 08/23/17 08/23/17 08/23/17 05:36 08:50 12:14 WBC RBC Hgb Hct MCV MCH RDW Plt Count Lymph % (Auto) Bailey % (Auto) Bailey # Seg Neutrophils % Seg Neuts % (Manual) Lymphocytes % (Manual) Monocytes % (Manual) Nucleated RBC % Seg Neutrophils # Seg Neutrophils # Man Lymphocytes # (Manual) Monocytes # (Manual) Eosinophils # (Manual) Basophils # (Manual) PT INR POC ABG pH ABG pH POC ABG pCO2 POC ABG pO2 ABG pO2 ABG O2 Saturation ABG Base Excess ABG Hemoglobin Oxyhemoglobin Sodium Potassium Chloride 107.1 H Carbon Dioxide BUN 49 H Creatinine 3.3 H Glucose 172 H POC Glucose 206 H 238 H Calcium Phosphorus Magnesium 2.40 H Iron TIBC Ferritin Total Bilirubin AST ALT Alkaline Phosphatase Total Creatine Kinase Troponin T C-Reactive Protein Total Protein Albumin Triglycerides HDL Cholesterol Miscellaneous Test Crossmatch 08/23/17 08/23/17 08/24/17 17:21 23:13 04:00 WBC 34.2 H RBC 2.86 L Hgb 8.4 L Hct 25.9 L MCV MCH RDW 17.9 H Plt Count Lymph % (Auto) Bailey % (Auto) Bailey # Seg Neutrophils % Seg Neuts % (Manual) 85.0 H Lymphocytes % (Manual) 0.5 L Monocytes % (Manual) Nucleated RBC % 1.0 H Seg Neutrophils # Seg Neutrophils # Man 29.1 H Lymphocytes # (Manual) 0.2 L Monocytes # (Manual) 2.4 H Eosinophils # (Manual) Basophils # (Manual) PT INR POC ABG pH ABG pH POC ABG pCO2 POC ABG pO2 ABG pO2 ABG O2 Saturation ABG Base Excess ABG Hemoglobin Oxyhemoglobin Sodium Potassium Chloride Carbon Dioxide BUN Creatinine Glucose POC Glucose 226 H 183 H Calcium Phosphorus Magnesium Iron TIBC Ferritin Total Bilirubin AST ALT Alkaline Phosphatase Total Creatine Kinase Troponin T C-Reactive Protein Total Protein Albumin Triglycerides HDL Cholesterol Miscellaneous Test Crossmatch 08/24/17 08/24/17 08/24/17 05:06 09:30 12:04 WBC RBC Hgb Hct MCV MCH RDW Plt Count Lymph % (Auto) Bailey % (Auto) Bailey # Seg Neutrophils % Seg Neuts % (Manual) Lymphocytes % (Manual) Monocytes % (Manual) Nucleated RBC % Seg Neutrophils # Seg Neutrophils # Man Lymphocytes # (Manual) Monocytes # (Manual) Eosinophils # (Manual) Basophils # (Manual) PT INR POC ABG pH ABG pH POC ABG pCO2 POC ABG pO2 ABG pO2 ABG O2 Saturation ABG Base Excess ABG Hemoglobin Oxyhemoglobin Sodium Potassium Chloride Carbon Dioxide BUN 46 H Creatinine 2.5 H Glucose 176 H POC Glucose 201 H 181 H Calcium Phosphorus Magnesium Iron TIBC Ferritin Total Bilirubin AST ALT Alkaline Phosphatase Total Creatine Kinase Troponin T C-Reactive Protein Total Protein Albumin Triglycerides HDL Cholesterol Miscellaneous Test Crossmatch 08/24/17 08/24/17 08/25/17 18:04 23:05 05:05 WBC RBC Hgb Hct MCV MCH RDW Plt Count Lymph % (Auto) Bailey % (Auto) Bailey # Seg Neutrophils % Seg Neuts % (Manual) Lymphocytes % (Manual) Monocytes % (Manual) Nucleated RBC % Seg Neutrophils # Seg Neutrophils # Man Lymphocytes # (Manual) Monocytes # (Manual) Eosinophils # (Manual) Basophils # (Manual) PT INR POC ABG pH ABG pH POC ABG pCO2 POC ABG pO2 ABG pO2 ABG O2 Saturation ABG Base Excess ABG Hemoglobin Oxyhemoglobin Sodium Potassium Chloride Carbon Dioxide BUN Creatinine Glucose POC Glucose 189 H 175 H 190 H Calcium Phosphorus Magnesium Iron TIBC Ferritin Total Bilirubin AST ALT Alkaline Phosphatase Total Creatine Kinase Troponin T C-Reactive Protein Total Protein Albumin Triglycerides HDL Cholesterol Miscellaneous Test Crossmatch 08/25/17 08/25/17 08/26/17 07:02 11:53 05:30 WBC 33.5 H RBC 2.47 L Hgb 7.3 L Hct 23.0 L MCV MCH RDW 21.3 H Plt Count Lymph % (Auto) Bailey % (Auto) Bailey # Seg Neutrophils % Seg Neuts % (Manual) 92.0 H Lymphocytes % (Manual) 1.0 L Monocytes % (Manual) Nucleated RBC % Seg Neutrophils # Seg Neutrophils # Man 30.8 H Lymphocytes # (Manual) 0.3 L Monocytes # (Manual) Eosinophils # (Manual) Basophils # (Manual) PT INR POC ABG pH ABG pH POC ABG pCO2 POC ABG pO2 ABG pO2 ABG O2 Saturation ABG Base Excess ABG Hemoglobin Oxyhemoglobin Sodium Potassium Chloride Carbon Dioxide BUN 32 H Creatinine 5.0 H D Glucose 117 H POC Glucose 191 H Calcium 8.0 L Phosphorus Magnesium Iron TIBC Ferritin Total Bilirubin AST ALT Alkaline Phosphatase Total Creatine Kinase Troponin T C-Reactive Protein Total Protein Albumin Triglycerides HDL Cholesterol Miscellaneous Test Crossmatch 08/26/17 08/26/17 08/26/17 05:30 06:44 13:26 WBC RBC Hgb Hct MCV MCH RDW Plt Count Lymph % (Auto) Bailey % (Auto) Bailey # Seg Neutrophils % Seg Neuts % (Manual) Lymphocytes % (Manual) Monocytes % (Manual) Nucleated RBC % Seg Neutrophils # Seg Neutrophils # Man Lymphocytes # (Manual) Monocytes # (Manual) Eosinophils # (Manual) Basophils # (Manual) PT INR POC ABG pH ABG pH POC ABG pCO2 POC ABG pO2 ABG pO2 ABG O2 Saturation ABG Base Excess ABG Hemoglobin Oxyhemoglobin Sodium Potassium 5.2 H Chloride Carbon Dioxide BUN 80 H Creatinine 3.4 H Glucose 193 H POC Glucose 232 H 207 H Calcium 8.3 L Phosphorus 6.80 H D Magnesium 2.60 H Iron TIBC Ferritin Total Bilirubin AST 135 H ALT Alkaline Phosphatase 211 H Total Creatine Kinase Troponin T C-Reactive Protein Total Protein 4.8 L Albumin 2.0 L Triglycerides HDL Cholesterol Miscellaneous Test Crossmatch 08/27/17 08/27/17 08/27/17 01:08 06:20 06:20 WBC 35.0 H RBC 2.75 L Hgb 8.4 L Hct 25.1 L MCV MCH RDW 21.8 H Plt Count Lymph % (Auto) Bailey % (Auto) Bailey # Seg Neutrophils % Seg Neuts % (Manual) Lymphocytes % (Manual) 4.5 L Monocytes % (Manual) Nucleated RBC % Seg Neutrophils # Seg Neutrophils # Man 31.9 H Lymphocytes # (Manual) Monocytes # (Manual) 1.2 H Eosinophils # (Manual) Basophils # (Manual) PT INR POC ABG pH ABG pH POC ABG pCO2 POC ABG pO2 ABG pO2 ABG O2 Saturation ABG Base Excess ABG Hemoglobin Oxyhemoglobin Sodium Potassium Chloride Carbon Dioxide BUN 61 H Creatinine 2.6 H Glucose 184 H POC Glucose 146 H Calcium Phosphorus 4.90 H D Magnesium Iron TIBC Ferritin Total Bilirubin AST ALT Alkaline Phosphatase Total Creatine Kinase Troponin T C-Reactive Protein Total Protein Albumin Triglycerides HDL Cholesterol Miscellaneous Test Crossmatch 08/27/17 08/27/17 08/27/17 07:01 09:17 12:52 WBC RBC Hgb Hct MCV MCH RDW Plt Count Lymph % (Auto) Bailey % (Auto) Bailey # Seg Neutrophils % Seg Neuts % (Manual) Lymphocytes % (Manual) Monocytes % (Manual) Nucleated RBC % Seg Neutrophils # Seg Neutrophils # Man Lymphocytes # (Manual) Monocytes # (Manual) Eosinophils # (Manual) Basophils # (Manual) PT INR POC ABG pH ABG pH POC ABG pCO2 POC ABG pO2 ABG pO2 ABG O2 Saturation ABG Base Excess ABG Hemoglobin Oxyhemoglobin Sodium Potassium Chloride Carbon Dioxide BUN Creatinine Glucose POC Glucose 165 H 198 H 218 H Calcium Phosphorus Magnesium Iron TIBC Ferritin Total Bilirubin AST ALT Alkaline Phosphatase Total Creatine Kinase Troponin T C-Reactive Protein Total Protein Albumin Triglycerides HDL Cholesterol Miscellaneous Test Crossmatch 08/27/17 08/28/17 08/28/17 17:27 02:13 06:46 WBC RBC Hgb Hct MCV MCH RDW Plt Count Lymph % (Auto) Bailey % (Auto) Bailey # Seg Neutrophils % Seg Neuts % (Manual) Lymphocytes % (Manual) Monocytes % (Manual) Nucleated RBC % Seg Neutrophils # Seg Neutrophils # Man Lymphocytes # (Manual) Monocytes # (Manual) Eosinophils # (Manual) Basophils # (Manual) PT INR POC ABG pH ABG pH POC ABG pCO2 POC ABG pO2 ABG pO2 ABG O2 Saturation ABG Base Excess ABG Hemoglobin Oxyhemoglobin Sodium Potassium Chloride Carbon Dioxide BUN Creatinine Glucose POC Glucose 151 H 155 H 230 H Calcium Phosphorus Magnesium Iron TIBC Ferritin Total Bilirubin AST ALT Alkaline Phosphatase Total Creatine Kinase Troponin T C-Reactive Protein Total Protein Albumin Triglycerides HDL Cholesterol Miscellaneous Test Crossmatch 08/28/17 08/28/17 08/28/17 06:53 06:53 08:19 WBC 31.1 H RBC 2.26 L Hgb 6.8 L Hct 20.9 L MCV MCH RDW 21.7 H Plt Count Lymph % (Auto) Bailey % (Auto) Bailey # Seg Neutrophils % Seg Neuts % (Manual) 83.0 H Lymphocytes % (Manual) 4.0 L Monocytes % (Manual) Nucleated RBC % Seg Neutrophils # Seg Neutrophils # Man 25.8 H Lymphocytes # (Manual) Monocytes # (Manual) Eosinophils # (Manual) Basophils # (Manual) PT INR POC ABG pH ABG pH POC ABG pCO2 POC ABG pO2 ABG pO2 ABG O2 Saturation ABG Base Excess ABG Hemoglobin Oxyhemoglobin Sodium Potassium Chloride Carbon Dioxide BUN 81 H Creatinine 3.4 H Glucose 218 H POC Glucose 239 H Calcium Phosphorus 4.90 H Magnesium Iron TIBC Ferritin Total Bilirubin AST ALT Alkaline Phosphatase Total Creatine Kinase Troponin T C-Reactive Protein Total Protein Albumin Triglycerides HDL Cholesterol Miscellaneous Test Crossmatch 08/28/17 08/28/17 08/28/17 11:56 13:05 13:29 WBC RBC Hgb Hct MCV MCH RDW Plt Count Lymph % (Auto) Bailey % (Auto) Bailey # Seg Neutrophils % Seg Neuts % (Manual) Lymphocytes % (Manual) Monocytes % (Manual) Nucleated RBC % Seg Neutrophils # Seg Neutrophils # Man Lymphocytes # (Manual) Monocytes # (Manual) Eosinophils # (Manual) Basophils # (Manual) PT 16.7 H INR 1.29 H POC ABG pH ABG pH POC ABG pCO2 POC ABG pO2 338 H ABG pO2 ABG O2 Saturation ABG Base Excess ABG Hemoglobin Oxyhemoglobin Sodium Potassium Chloride Carbon Dioxide BUN Creatinine Glucose POC Glucose Calcium Phosphorus Magnesium Iron TIBC Ferritin Total Bilirubin AST ALT Alkaline Phosphatase Total Creatine Kinase Troponin T C-Reactive Protein Total Protein Albumin Triglycerides HDL Cholesterol Miscellaneous Test Crossmatch See Detail 08/28/17 08/28/17 08/29/17 16:22 19:20 04:24 WBC RBC Hgb Hct MCV MCH RDW Plt Count Lymph % (Auto) Bailey % (Auto) Bailey # Seg Neutrophils % Seg Neuts % (Manual) Lymphocytes % (Manual) Monocytes % (Manual) Nucleated RBC % Seg Neutrophils # Seg Neutrophils # Man Lymphocytes # (Manual) Monocytes # (Manual) Eosinophils # (Manual) Basophils # (Manual) PT INR POC ABG pH 7.469 H ABG pH POC ABG pCO2 POC ABG pO2 240 H ABG pO2 ABG O2 Saturation ABG Base Excess ABG Hemoglobin Oxyhemoglobin Sodium Potassium Chloride Carbon Dioxide BUN Creatinine Glucose POC Glucose 209 H 195 H Calcium Phosphorus Magnesium Iron TIBC Ferritin Total Bilirubin AST ALT Alkaline Phosphatase Total Creatine Kinase Troponin T C-Reactive Protein Total Protein Albumin Triglycerides HDL Cholesterol Miscellaneous Test Crossmatch 08/29/17 08/29/17 08/29/17 04:30 04:30 12:07 WBC 44.9 H* RBC Hgb Hct MCV MCH RDW 23.1 H Plt Count Lymph % (Auto) Bailey % (Auto) Bailey # Seg Neutrophils % Seg Neuts % (Manual) 38.0 L Lymphocytes % (Manual) 10.0 L Monocytes % (Manual) 10.0 H Nucleated RBC % 6.0 H Seg Neutrophils # Seg Neutrophils # Man 17.1 H Lymphocytes # (Manual) Monocytes # (Manual) 4.5 H Eosinophils # (Manual) Basophils # (Manual) PT INR POC ABG pH ABG pH POC ABG pCO2 POC ABG pO2 ABG pO2 ABG O2 Saturation ABG Base Excess ABG Hemoglobin Oxyhemoglobin Sodium Potassium Chloride Carbon Dioxide BUN 61 H Creatinine 2.4 H Glucose 226 H POC Glucose 200 H Calcium Phosphorus Magnesium Iron TIBC Ferritin Total Bilirubin AST ALT Alkaline Phosphatase Total Creatine Kinase Troponin T C-Reactive Protein Total Protein Albumin Triglycerides HDL Cholesterol Miscellaneous Test Crossmatch 08/29/17 08/29/17 08/29/17 12:30 12:30 17:23 WBC RBC Hgb Hct MCV MCH RDW Plt Count Lymph % (Auto) Bailey % (Auto) Bailey # Seg Neutrophils % Seg Neuts % (Manual) Lymphocytes % (Manual) Monocytes % (Manual) Nucleated RBC % Seg Neutrophils # Seg Neutrophils # Man Lymphocytes # (Manual) Monocytes # (Manual) Eosinophils # (Manual) Basophils # (Manual) PT INR POC ABG pH ABG pH POC ABG pCO2 POC ABG pO2 ABG pO2 ABG O2 Saturation ABG Base Excess ABG Hemoglobin Oxyhemoglobin Sodium Potassium Chloride Carbon Dioxide BUN Creatinine Glucose POC Glucose 270 H Calcium Phosphorus Magnesium Iron TIBC Ferritin Total Bilirubin AST ALT Alkaline Phosphatase Total Creatine Kinase Troponin T C-Reactive Protein 19.10 H Total Protein Albumin Triglycerides HDL Cholesterol Miscellaneous Test Flexitest 1 H Crossmatch 08/30/17 08/30/17 08/30/17 00:10 01:30 03:31 WBC RBC Hgb Hct MCV MCH RDW Plt Count Lymph % (Auto) Bailey % (Auto) Bailey # Seg Neutrophils % Seg Neuts % (Manual) Lymphocytes % (Manual) Monocytes % (Manual) Nucleated RBC % Seg Neutrophils # Seg Neutrophils # Man Lymphocytes # (Manual) Monocytes # (Manual) Eosinophils # (Manual) Basophils # (Manual) PT INR POC ABG pH 7.168 L 7.335 L ABG pH POC ABG pCO2 72.8 H POC ABG pO2 257 H 117 H ABG pO2 ABG O2 Saturation ABG Base Excess ABG Hemoglobin Oxyhemoglobin Sodium Potassium Chloride Carbon Dioxide BUN Creatinine Glucose POC Glucose 245 H Calcium Phosphorus Magnesium Iron TIBC Ferritin Total Bilirubin AST ALT Alkaline Phosphatase Total Creatine Kinase Troponin T C-Reactive Protein Total Protein Albumin Triglycerides HDL Cholesterol Miscellaneous Test Crossmatch 08/30/17 08/30/17 08/30/17 05:20 05:20 05:20 WBC 40.9 H* RBC 3.64 L Hgb Hct MCV MCH RDW 24.3 H Plt Count Lymph % (Auto) Bailey % (Auto) Bailey # Seg Neutrophils % Seg Neuts % (Manual) 80.0 H Lymphocytes % (Manual) 3.0 L Monocytes % (Manual) Nucleated RBC % 1.0 H Seg Neutrophils # Seg Neutrophils # Man 32.7 H Lymphocytes # (Manual) Monocytes # (Manual) Eosinophils # (Manual) Basophils # (Manual) PT INR POC ABG pH ABG pH POC ABG pCO2 POC ABG pO2 ABG pO2 ABG O2 Saturation ABG Base Excess ABG Hemoglobin Oxyhemoglobin Sodium Potassium Chloride Carbon Dioxide BUN 83 H Creatinine 2.9 H Glucose 334 H POC Glucose 309 H Calcium Phosphorus Magnesium Iron TIBC Ferritin Total Bilirubin AST ALT Alkaline Phosphatase Total Creatine Kinase Troponin T C-Reactive Protein Total Protein Albumin Triglycerides HDL Cholesterol Miscellaneous Test Crossmatch 08/30/17 08/30/17 08/31/17 12:18 17:36 00:17 WBC RBC Hgb Hct MCV MCH RDW Plt Count Lymph % (Auto) Bailey % (Auto) Bailey # Seg Neutrophils % Seg Neuts % (Manual) Lymphocytes % (Manual) Monocytes % (Manual) Nucleated RBC % Seg Neutrophils # Seg Neutrophils # Man Lymphocytes # (Manual) Monocytes # (Manual) Eosinophils # (Manual) Basophils # (Manual) PT INR POC ABG pH ABG pH POC ABG pCO2 POC ABG pO2 ABG pO2 ABG O2 Saturation ABG Base Excess ABG Hemoglobin Oxyhemoglobin Sodium Potassium Chloride Carbon Dioxide BUN Creatinine Glucose POC Glucose 273 H 293 H 360 H Calcium Phosphorus Magnesium Iron TIBC Ferritin Total Bilirubin AST ALT Alkaline Phosphatase Total Creatine Kinase Troponin T C-Reactive Protein Total Protein Albumin Triglycerides HDL Cholesterol Miscellaneous Test Crossmatch 08/31/17 08/31/17 08/31/17 05:30 05:30 05:32 WBC 29.9 H RBC 2.89 L Hgb 8.2 L Hct 24.7 L D MCV MCH RDW 24.4 H Plt Count Lymph % (Auto) Bailey % (Auto) Bailey # Seg Neutrophils % Seg Neuts % (Manual) Lymphocytes % (Manual) 2.0 L Monocytes % (Manual) Nucleated RBC % 2.0 H Seg Neutrophils # Seg Neutrophils # Man 18.5 H Lymphocytes # (Manual) 0.6 L Monocytes # (Manual) 0.9 H Eosinophils # (Manual) Basophils # (Manual) PT INR POC ABG pH ABG pH POC ABG pCO2 POC ABG pO2 ABG pO2 ABG O2 Saturation ABG Base Excess ABG Hemoglobin Oxyhemoglobin Sodium Potassium Chloride Carbon Dioxide BUN 62 H Creatinine 2.2 H Glucose 245 H POC Glucose 257 H Calcium Phosphorus 2.10 L D Magnesium 1.60 L Iron TIBC Ferritin Total Bilirubin AST ALT Alkaline Phosphatase Total Creatine Kinase Troponin T C-Reactive Protein Total Protein Albumin Triglycerides HDL Cholesterol Miscellaneous Test Crossmatch 08/31/17 08/31/17 08/31/17 11:56 12:05 18:14 WBC 32.5 H RBC 3.19 L Hgb 8.8 L Hct 27.9 L MCV MCH RDW 24.9 H Plt Count Lymph % (Auto) Bailey % (Auto) Bailey # Seg Neutrophils % Seg Neuts % (Manual) Lymphocytes % (Manual) 1.0 L Monocytes % (Manual) 12.0 H Nucleated RBC % 1.0 H Seg Neutrophils # Seg Neutrophils # Man 13.3 H Lymphocytes # (Manual) 0.3 L Monocytes # (Manual) 3.9 H Eosinophils # (Manual) Basophils # (Manual) PT INR POC ABG pH ABG pH POC ABG pCO2 POC ABG pO2 ABG pO2 ABG O2 Saturation ABG Base Excess ABG Hemoglobin Oxyhemoglobin Sodium Potassium Chloride Carbon Dioxide BUN Creatinine Glucose POC Glucose 245 H Calcium Phosphorus Magnesium Iron TIBC Ferritin Total Bilirubin AST ALT Alkaline Phosphatase Total Creatine Kinase Troponin T C-Reactive Protein Total Protein Albumin Triglycerides HDL Cholesterol Miscellaneous Test Crossmatch See Detail 08/31/17 08/31/17 08/31/17 18:14 18:15 18:22 WBC RBC Hgb Hct MCV MCH RDW Plt Count Lymph % (Auto) Bailey % (Auto) Bailey # Seg Neutrophils % Seg Neuts % (Manual) Lymphocytes % (Manual) Monocytes % (Manual) Nucleated RBC % Seg Neutrophils # Seg Neutrophils # Man Lymphocytes # (Manual) Monocytes # (Manual) Eosinophils # (Manual) Basophils # (Manual) PT 15.1 H INR POC ABG pH ABG pH POC ABG pCO2 POC ABG pO2 ABG pO2 ABG O2 Saturation ABG Base Excess ABG Hemoglobin Oxyhemoglobin Sodium 136 L Potassium Chloride Carbon Dioxide 21 L BUN 69 H Creatinine 2.3 H Glucose 227 H POC Glucose 240 H Calcium Phosphorus 2.40 L Magnesium 1.50 L Iron TIBC Ferritin Total Bilirubin AST 143 H ALT 114 H Alkaline Phosphatase 267 H Total Creatine Kinase Troponin T C-Reactive Protein Total Protein 4.1 L Albumin 1.8 L Triglycerides HDL Cholesterol Miscellaneous Test Crossmatch 08/31/17 09/01/17 09/01/17 23:53 05:00 05:00 WBC 33.9 H RBC 2.85 L Hgb 7.8 L Hct 24.8 L MCV MCH 27 L RDW 23.9 H Plt Count Lymph % (Auto) Bailey % (Auto) Bailey # Seg Neutrophils % Seg Neuts % (Manual) Lymphocytes % (Manual) 5.0 L Monocytes % (Manual) Nucleated RBC % Seg Neutrophils # Seg Neutrophils # Man 23.1 H Lymphocytes # (Manual) Monocytes # (Manual) Eosinophils # (Manual) Basophils # (Manual) PT INR POC ABG pH ABG pH POC ABG pCO2 POC ABG pO2 ABG pO2 ABG O2 Saturation ABG Base Excess ABG Hemoglobin Oxyhemoglobin Sodium Potassium Chloride Carbon Dioxide BUN 51 H Creatinine 1.8 H Glucose 195 H POC Glucose 301 H Calcium Phosphorus 1.70 L D Magnesium 1.60 L Iron TIBC Ferritin Total Bilirubin AST 80 H ALT 82 H Alkaline Phosphatase 243 H Total Creatine Kinase Troponin T C-Reactive Protein Total Protein 4.2 L Albumin 1.7 L Triglycerides HDL Cholesterol Miscellaneous Test Crossmatch 09/01/17 09/01/17 09/01/17 05:20 05:47 11:37 WBC RBC Hgb Hct MCV MCH RDW Plt Count Lymph % (Auto) Bailey % (Auto) Bailey # Seg Neutrophils % Seg Neuts % (Manual) Lymphocytes % (Manual) Monocytes % (Manual) Nucleated RBC % Seg Neutrophils # Seg Neutrophils # Man Lymphocytes # (Manual) Monocytes # (Manual) Eosinophils # (Manual) Basophils # (Manual) PT INR POC ABG pH ABG pH 7.348 L POC ABG pCO2 POC ABG pO2 ABG pO2 70.2 L ABG O2 Saturation ABG Base Excess ABG Hemoglobin 7.5 L Oxyhemoglobin Sodium Potassium Chloride Carbon Dioxide BUN Creatinine Glucose POC Glucose 230 H 254 H Calcium Phosphorus Magnesium Iron TIBC Ferritin Total Bilirubin AST ALT Alkaline Phosphatase Total Creatine Kinase Troponin T C-Reactive Protein Total Protein Albumin Triglycerides HDL Cholesterol Miscellaneous Test Crossmatch 09/01/17 09/01/17 09/02/17 17:39 23:14 04:55 WBC RBC Hgb Hct MCV MCH RDW Plt Count Lymph % (Auto) Bailey % (Auto) Bailey # Seg Neutrophils % Seg Neuts % (Manual) Lymphocytes % (Manual) Monocytes % (Manual) Nucleated RBC % Seg Neutrophils # Seg Neutrophils # Man Lymphocytes # (Manual) Monocytes # (Manual) Eosinophils # (Manual) Basophils # (Manual) PT INR POC ABG pH ABG pH POC ABG pCO2 POC ABG pO2 ABG pO2 124.8 H ABG O2 Saturation ABG Base Excess -2.9 L ABG Hemoglobin 5.8 L Oxyhemoglobin Sodium Potassium Chloride Carbon Dioxide BUN Creatinine Glucose POC Glucose 297 H 291 H Calcium Phosphorus Magnesium Iron TIBC Ferritin Total Bilirubin AST ALT Alkaline Phosphatase Total Creatine Kinase Troponin T C-Reactive Protein Total Protein Albumin Triglycerides HDL Cholesterol Miscellaneous Test Crossmatch 09/02/17 09/02/17 09/02/17 05:31 06:10 11:58 WBC RBC Hgb Hct MCV MCH RDW Plt Count Lymph % (Auto) Bailey % (Auto) Bailey # Seg Neutrophils % Seg Neuts % (Manual) Lymphocytes % (Manual) Monocytes % (Manual) Nucleated RBC % Seg Neutrophils # Seg Neutrophils # Man Lymphocytes # (Manual) Monocytes # (Manual) Eosinophils # (Manual) Basophils # (Manual) PT INR POC ABG pH ABG pH POC ABG pCO2 POC ABG pO2 ABG pO2 ABG O2 Saturation ABG Base Excess ABG Hemoglobin Oxyhemoglobin Sodium Potassium Chloride Carbon Dioxide BUN 68 H Creatinine 2.2 H Glucose 369 H POC Glucose 245 H 333 H Calcium 8.2 L Phosphorus Magnesium Iron TIBC Ferritin Total Bilirubin AST ALT Alkaline Phosphatase Total Creatine Kinase Troponin T C-Reactive Protein Total Protein Albumin Triglycerides HDL Cholesterol Miscellaneous Test Crossmatch 09/02/17 09/02/17 09/03/17 15:37 23:50 04:00 WBC RBC Hgb Hct MCV MCH RDW Plt Count Lymph % (Auto) Bailey % (Auto) Bailey # Seg Neutrophils % Seg Neuts % (Manual) Lymphocytes % (Manual) Monocytes % (Manual) Nucleated RBC % Seg Neutrophils # Seg Neutrophils # Man Lymphocytes # (Manual) Monocytes # (Manual) Eosinophils # (Manual) Basophils # (Manual) PT INR POC ABG pH ABG pH POC ABG pCO2 POC ABG pO2 ABG pO2 ABG O2 Saturation ABG Base Excess ABG Hemoglobin Oxyhemoglobin Sodium Potassium Chloride Carbon Dioxide BUN 59 H Creatinine 1.9 H Glucose 231 H POC Glucose 314 H 240 H Calcium 8.0 L Phosphorus Magnesium Iron TIBC Ferritin Total Bilirubin AST ALT Alkaline Phosphatase 265 H Total Creatine Kinase Troponin T C-Reactive Protein Total Protein 4.4 L Albumin 1.7 L Triglycerides 180 H HDL Cholesterol Miscellaneous Test Crossmatch 09/03/17 09/03/17 09/03/17 05:00 05:32 11:52 WBC 41.5 H* RBC 2.46 L Hgb 6.9 L Hct 21.3 L MCV MCH RDW 24.9 H Plt Count Lymph % (Auto) Bailey % (Auto) Bailey # Seg Neutrophils % Seg Neuts % (Manual) Lymphocytes % (Manual) 3.0 L Monocytes % (Manual) 9.5 H Nucleated RBC % 1.5 H Seg Neutrophils # Seg Neutrophils # Man 28.8 H Lymphocytes # (Manual) Monocytes # (Manual) 3.9 H Eosinophils # (Manual) Basophils # (Manual) PT INR POC ABG pH ABG pH POC ABG pCO2 POC ABG pO2 ABG pO2 ABG O2 Saturation ABG Base Excess ABG Hemoglobin Oxyhemoglobin Sodium Potassium Chloride Carbon Dioxide BUN Creatinine Glucose POC Glucose 188 H 285 H Calcium Phosphorus Magnesium Iron TIBC Ferritin Total Bilirubin AST ALT Alkaline Phosphatase Total Creatine Kinase Troponin T C-Reactive Protein Total Protein Albumin Triglycerides HDL Cholesterol Miscellaneous Test Crossmatch 09/03/17 09/03/17 09/03/17 16:55 17:44 23:56 WBC RBC Hgb Hct MCV MCH RDW Plt Count Lymph % (Auto) Bailey % (Auto) Bailey # Seg Neutrophils % Seg Neuts % (Manual) Lymphocytes % (Manual) Monocytes % (Manual) Nucleated RBC % Seg Neutrophils # Seg Neutrophils # Man Lymphocytes # (Manual) Monocytes # (Manual) Eosinophils # (Manual) Basophils # (Manual) PT INR POC ABG pH ABG pH POC ABG pCO2 POC ABG pO2 ABG pO2 ABG O2 Saturation ABG Base Excess ABG Hemoglobin Oxyhemoglobin Sodium Potassium Chloride Carbon Dioxide BUN Creatinine Glucose POC Glucose 217 H 193 H Calcium Phosphorus Magnesium Iron TIBC Ferritin Total Bilirubin AST ALT Alkaline Phosphatase Total Creatine Kinase Troponin T C-Reactive Protein Total Protein Albumin Triglycerides HDL Cholesterol Miscellaneous Test Crossmatch See Detail 09/03/17 09/04/17 09/04/17 Unknown 03:47 04:32 WBC 44.7 H* RBC 3.12 L Hgb 8.7 L Hct 26.7 L MCV MCH RDW 23.5 H Plt Count Lymph % (Auto) Bailey % (Auto) Bailey # Seg Neutrophils % Seg Neuts % (Manual) Lymphocytes % (Manual) 4.0 L Monocytes % (Manual) Nucleated RBC % 2.0 H Seg Neutrophils # Seg Neutrophils # Man 30.8 H Lymphocytes # (Manual) Monocytes # (Manual) 2.2 H Eosinophils # (Manual) Basophils # (Manual) PT INR POC ABG pH ABG pH POC ABG pCO2 POC ABG pO2 ABG pO2 133.4 H 135.0 H ABG O2 Saturation ABG Base Excess -2.5 L ABG Hemoglobin 5.8 L 7.9 L Oxyhemoglobin Sodium Potassium Chloride Carbon Dioxide BUN Creatinine Glucose POC Glucose Calcium Phosphorus Magnesium Iron TIBC Ferritin Total Bilirubin AST ALT Alkaline Phosphatase Total Creatine Kinase Troponin T C-Reactive Protein Total Protein Albumin Triglycerides HDL Cholesterol Miscellaneous Test Crossmatch 09/04/17 09/04/17 09/04/17 04:32 05:48 10:43 WBC RBC Hgb Hct MCV MCH RDW Plt Count Lymph % (Auto) Bailey % (Auto) Bailey # Seg Neutrophils % Seg Neuts % (Manual) Lymphocytes % (Manual) Monocytes % (Manual) Nucleated RBC % Seg Neutrophils # Seg Neutrophils # Man Lymphocytes # (Manual) Monocytes # (Manual) Eosinophils # (Manual) Basophils # (Manual) PT INR POC ABG pH ABG pH POC ABG pCO2 POC ABG pO2 ABG pO2 ABG O2 Saturation ABG Base Excess ABG Hemoglobin Oxyhemoglobin Sodium 136 L Potassium 5.2 H D Chloride 94.2 L Carbon Dioxide BUN 71 H Creatinine 2.3 H Glucose 235 H POC Glucose 329 H Calcium 8.3 L Phosphorus Magnesium Iron TIBC Ferritin Total Bilirubin AST ALT Alkaline Phosphatase Total Creatine Kinase Troponin T C-Reactive Protein Total Protein Albumin Triglycerides HDL Cholesterol Miscellaneous Test Flexitest 1 H Crossmatch 09/04/17 09/04/17 09/05/17 12:38 17:30 00:15 WBC RBC Hgb Hct MCV MCH RDW Plt Count Lymph % (Auto) Bailey % (Auto) Bailey # Seg Neutrophils % Seg Neuts % (Manual) Lymphocytes % (Manual) Monocytes % (Manual) Nucleated RBC % Seg Neutrophils # Seg Neutrophils # Man Lymphocytes # (Manual) Monocytes # (Manual) Eosinophils # (Manual) Basophils # (Manual) PT INR POC ABG pH ABG pH POC ABG pCO2 POC ABG pO2 ABG pO2 ABG O2 Saturation ABG Base Excess ABG Hemoglobin Oxyhemoglobin Sodium Potassium Chloride Carbon Dioxide BUN Creatinine Glucose POC Glucose 444 H 331 H 362 H Calcium Phosphorus Magnesium Iron TIBC Ferritin Total Bilirubin AST ALT Alkaline Phosphatase Total Creatine Kinase Troponin T C-Reactive Protein Total Protein Albumin Triglycerides HDL Cholesterol Miscellaneous Test Crossmatch 09/05/17 09/05/17 09/05/17 03:55 03:55 12:12 WBC 35.3 H RBC 2.87 L Hgb 8.1 L Hct 24.6 L MCV MCH RDW 23.3 H Plt Count Lymph % (Auto) Bailey % (Auto) Bailey # Seg Neutrophils % Seg Neuts % (Manual) 89.5 H Lymphocytes % (Manual) 3.0 L Monocytes % (Manual) Nucleated RBC % 2.5 H Seg Neutrophils # Seg Neutrophils # Man 31.6 H Lymphocytes # (Manual) 1.1 L Monocytes # (Manual) Eosinophils # (Manual) Basophils # (Manual) PT INR POC ABG pH ABG pH POC ABG pCO2 POC ABG pO2 ABG pO2 ABG O2 Saturation ABG Base Excess ABG Hemoglobin Oxyhemoglobin Sodium 136 L Potassium Chloride 94.7 L Carbon Dioxide BUN 55 H Creatinine 1.8 H Glucose 193 H POC Glucose 344 H Calcium 8.1 L Phosphorus Magnesium Iron TIBC Ferritin Total Bilirubin AST ALT Alkaline Phosphatase Total Creatine Kinase Troponin T C-Reactive Protein Total Protein Albumin Triglycerides HDL Cholesterol Miscellaneous Test Crossmatch 09/05/17 09/05/17 09/05/17 14:32 15:32 16:41 WBC RBC Hgb Hct MCV MCH RDW Plt Count Lymph % (Auto) Bailey % (Auto) Bailey # Seg Neutrophils % Seg Neuts % (Manual) Lymphocytes % (Manual) Monocytes % (Manual) Nucleated RBC % Seg Neutrophils # Seg Neutrophils # Man Lymphocytes # (Manual) Monocytes # (Manual) Eosinophils # (Manual) Basophils # (Manual) PT INR POC ABG pH ABG pH POC ABG pCO2 POC ABG pO2 ABG pO2 ABG O2 Saturation ABG Base Excess ABG Hemoglobin Oxyhemoglobin Sodium Potassium Chloride Carbon Dioxide BUN Creatinine Glucose POC Glucose 265 H 145 H 188 H Calcium Phosphorus Magnesium Iron TIBC Ferritin Total Bilirubin AST ALT Alkaline Phosphatase Total Creatine Kinase Troponin T C-Reactive Protein Total Protein Albumin Triglycerides HDL Cholesterol Miscellaneous Test Crossmatch 09/05/17 09/05/17 09/05/17 17:28 18:38 20:10 WBC RBC Hgb Hct MCV MCH RDW Plt Count Lymph % (Auto) Bailey % (Auto) Bailey # Seg Neutrophils % Seg Neuts % (Manual) Lymphocytes % (Manual) Monocytes % (Manual) Nucleated RBC % Seg Neutrophils # Seg Neutrophils # Man Lymphocytes # (Manual) Monocytes # (Manual) Eosinophils # (Manual) Basophils # (Manual) PT INR POC ABG pH ABG pH POC ABG pCO2 POC ABG pO2 ABG pO2 ABG O2 Saturation ABG Base Excess ABG Hemoglobin Oxyhemoglobin Sodium Potassium Chloride Carbon Dioxide BUN Creatinine Glucose POC Glucose 246 H 271 H 165 H Calcium Phosphorus Magnesium Iron TIBC Ferritin Total Bilirubin AST ALT Alkaline Phosphatase Total Creatine Kinase Troponin T C-Reactive Protein Total Protein Albumin Triglycerides HDL Cholesterol Miscellaneous Test Crossmatch 09/05/17 09/05/17 09/06/17 21:06 23:07 00:10 WBC RBC Hgb Hct MCV MCH RDW Plt Count Lymph % (Auto) Bailey % (Auto) Bailey # Seg Neutrophils % Seg Neuts % (Manual) Lymphocytes % (Manual) Monocytes % (Manual) Nucleated RBC % Seg Neutrophils # Seg Neutrophils # Man Lymphocytes # (Manual) Monocytes # (Manual) Eosinophils # (Manual) Basophils # (Manual) PT INR POC ABG pH ABG pH POC ABG pCO2 POC ABG pO2 ABG pO2 ABG O2 Saturation ABG Base Excess ABG Hemoglobin Oxyhemoglobin Sodium Potassium Chloride Carbon Dioxide BUN Creatinine Glucose POC Glucose 134 H 135 H 147 H Calcium Phosphorus Magnesium Iron TIBC Ferritin Total Bilirubin AST ALT Alkaline Phosphatase Total Creatine Kinase Troponin T C-Reactive Protein Total Protein Albumin Triglycerides HDL Cholesterol Miscellaneous Test Crossmatch 09/06/17 09/06/17 09/06/17 01:08 02:01 03:08 WBC RBC Hgb Hct MCV MCH RDW Plt Count Lymph % (Auto) Bailey % (Auto) Bailey # Seg Neutrophils % Seg Neuts % (Manual) Lymphocytes % (Manual) Monocytes % (Manual) Nucleated RBC % Seg Neutrophils # Seg Neutrophils # Man Lymphocytes # (Manual) Monocytes # (Manual) Eosinophils # (Manual) Basophils # (Manual) PT INR POC ABG pH ABG pH POC ABG pCO2 POC ABG pO2 ABG pO2 ABG O2 Saturation ABG Base Excess ABG Hemoglobin Oxyhemoglobin Sodium Potassium Chloride Carbon Dioxide BUN Creatinine Glucose POC Glucose 133 H 146 H 135 H Calcium Phosphorus Magnesium Iron TIBC Ferritin Total Bilirubin AST ALT Alkaline Phosphatase Total Creatine Kinase Troponin T C-Reactive Protein Total Protein Albumin Triglycerides HDL Cholesterol Miscellaneous Test Crossmatch 09/06/17 09/06/17 09/06/17 05:30 05:30 05:30 WBC 38.6 H RBC 2.95 L Hgb 8.3 L Hct 25.3 L MCV MCH RDW 22.2 H Plt Count Lymph % (Auto) Bailey % (Auto) Bailey # Seg Neutrophils % Seg Neuts % (Manual) Lymphocytes % (Manual) 2.0 L Monocytes % (Manual) Nucleated RBC % 5.0 H Seg Neutrophils # Seg Neutrophils # Man 25.9 H Lymphocytes # (Manual) 0.8 L Monocytes # (Manual) 1.9 H Eosinophils # (Manual) Basophils # (Manual) PT INR POC ABG pH ABG pH POC ABG pCO2 POC ABG pO2 ABG pO2 ABG O2 Saturation ABG Base Excess ABG Hemoglobin Oxyhemoglobin Sodium 135 L Potassium Chloride 93.5 L Carbon Dioxide BUN 82 H Creatinine 2.3 H Glucose 148 H POC Glucose Calcium Phosphorus Magnesium Iron TIBC Ferritin Total Bilirubin AST ALT Alkaline Phosphatase Total Creatine Kinase Troponin T C-Reactive Protein 2.80 H Total Protein Albumin Triglycerides HDL Cholesterol Miscellaneous Test Crossmatch 09/06/17 09/06/17 09/06/17 05:48 08:04 09:06 WBC RBC Hgb Hct MCV MCH RDW Plt Count Lymph % (Auto) Bailey % (Auto) Bailey # Seg Neutrophils % Seg Neuts % (Manual) Lymphocytes % (Manual) Monocytes % (Manual) Nucleated RBC % Seg Neutrophils # Seg Neutrophils # Man Lymphocytes # (Manual) Monocytes # (Manual) Eosinophils # (Manual) Basophils # (Manual) PT INR POC ABG pH ABG pH POC ABG pCO2 POC ABG pO2 ABG pO2 ABG O2 Saturation ABG Base Excess ABG Hemoglobin Oxyhemoglobin Sodium Potassium Chloride Carbon Dioxide BUN Creatinine Glucose POC Glucose 152 H 164 H 172 H Calcium Phosphorus Magnesium Iron TIBC Ferritin Total Bilirubin AST ALT Alkaline Phosphatase Total Creatine Kinase Troponin T C-Reactive Protein Total Protein Albumin Triglycerides HDL Cholesterol Miscellaneous Test Crossmatch 09/06/17 09/06/17 09/06/17 09:57 10:19 10:57 WBC RBC Hgb Hct MCV MCH RDW Plt Count Lymph % (Auto) Bailey % (Auto) Bailey # Seg Neutrophils % Seg Neuts % (Manual) Lymphocytes % (Manual) Monocytes % (Manual) Nucleated RBC % Seg Neutrophils # Seg Neutrophils # Man Lymphocytes # (Manual) Monocytes # (Manual) Eosinophils # (Manual) Basophils # (Manual) PT INR POC ABG pH ABG pH POC ABG pCO2 POC ABG pO2 ABG pO2 ABG O2 Saturation ABG Base Excess ABG Hemoglobin Oxyhemoglobin Sodium Potassium Chloride Carbon Dioxide BUN Creatinine Glucose POC Glucose 186 H 162 H Calcium Phosphorus Magnesium Iron TIBC Ferritin Total Bilirubin AST ALT Alkaline Phosphatase Total Creatine Kinase Troponin T C-Reactive Protein Total Protein Albumin Triglycerides HDL Cholesterol Miscellaneous Test Flexitest 1 H Crossmatch 09/06/17 09/06/17 09/06/17 13:12 13:40 17:36 WBC RBC Hgb 8.9 L Hct 28.5 L MCV MCH RDW Plt Count Lymph % (Auto) Bailey % (Auto) Bailey # Seg Neutrophils % Seg Neuts % (Manual) Lymphocytes % (Manual) Monocytes % (Manual) Nucleated RBC % Seg Neutrophils # Seg Neutrophils # Man Lymphocytes # (Manual) Monocytes # (Manual) Eosinophils # (Manual) Basophils # (Manual) PT INR POC ABG pH ABG pH POC ABG pCO2 POC ABG pO2 ABG pO2 ABG O2 Saturation ABG Base Excess ABG Hemoglobin Oxyhemoglobin Sodium Potassium Chloride Carbon Dioxide BUN Creatinine Glucose POC Glucose 166 H 161 H Calcium Phosphorus Magnesium Iron TIBC Ferritin Total Bilirubin AST ALT Alkaline Phosphatase Total Creatine Kinase Troponin T C-Reactive Protein Total Protein Albumin Triglycerides HDL Cholesterol Miscellaneous Test Crossmatch 09/07/17 09/07/17 09/07/17 00:13 03:50 03:50 WBC 47.0 H* RBC 2.81 L Hgb 8.1 L Hct 24.1 L MCV MCH RDW 22.5 H Plt Count Lymph % (Auto) Bailey % (Auto) Bailey # Seg Neutrophils % Seg Neuts % (Manual) Lymphocytes % (Manual) 9.0 L Monocytes % (Manual) Nucleated RBC % 6.0 H Seg Neutrophils # Seg Neutrophils # Man 27.3 H Lymphocytes # (Manual) Monocytes # (Manual) 0.9 H Eosinophils # (Manual) 1.9 H Basophils # (Manual) PT INR POC ABG pH ABG pH POC ABG pCO2 POC ABG pO2 ABG pO2 ABG O2 Saturation ABG Base Excess ABG Hemoglobin Oxyhemoglobin Sodium 136 L Potassium Chloride 96.3 L Carbon Dioxide BUN 61 H Creatinine 1.7 H Glucose 132 H POC Glucose 183 H Calcium 7.8 L Phosphorus Magnesium Iron TIBC Ferritin Total Bilirubin AST ALT Alkaline Phosphatase Total Creatine Kinase Troponin T C-Reactive Protein Total Protein Albumin Triglycerides HDL Cholesterol Miscellaneous Test Crossmatch 09/07/17 09/07/17 09/07/17 05:12 05:23 11:48 WBC RBC Hgb Hct MCV MCH RDW Plt Count Lymph % (Auto) Bailey % (Auto) Bailey # Seg Neutrophils % Seg Neuts % (Manual) Lymphocytes % (Manual) Monocytes % (Manual) Nucleated RBC % Seg Neutrophils # Seg Neutrophils # Man Lymphocytes # (Manual) Monocytes # (Manual) Eosinophils # (Manual) Basophils # (Manual) PT INR POC ABG pH ABG pH POC ABG pCO2 POC ABG pO2 ABG pO2 ABG O2 Saturation ABG Base Excess ABG Hemoglobin 7.7 L Oxyhemoglobin 94.8 L Sodium Potassium Chloride Carbon Dioxide BUN Creatinine Glucose POC Glucose 162 H 200 H Calcium Phosphorus Magnesium Iron TIBC Ferritin Total Bilirubin AST ALT Alkaline Phosphatase Total Creatine Kinase Troponin T C-Reactive Protein Total Protein Albumin Triglycerides HDL Cholesterol Miscellaneous Test Crossmatch 09/07/17 09/07/17 09/08/17 17:07 18:21 00:06 WBC RBC Hgb Hct MCV MCH RDW Plt Count Lymph % (Auto) Bailey % (Auto) Bailey # Seg Neutrophils % Seg Neuts % (Manual) Lymphocytes % (Manual) Monocytes % (Manual) Nucleated RBC % Seg Neutrophils # Seg Neutrophils # Man Lymphocytes # (Manual) Monocytes # (Manual) Eosinophils # (Manual) Basophils # (Manual) PT INR POC ABG pH ABG pH POC ABG pCO2 POC ABG pO2 ABG pO2 ABG O2 Saturation ABG Base Excess ABG Hemoglobin Oxyhemoglobin Sodium Potassium Chloride Carbon Dioxide BUN Creatinine Glucose POC Glucose 181 H 168 H Calcium Phosphorus Magnesium Iron TIBC Ferritin Total Bilirubin AST ALT Alkaline Phosphatase Total Creatine Kinase Troponin T C-Reactive Protein Total Protein Albumin Triglycerides HDL Cholesterol Miscellaneous Test Crossmatch See Detail 09/08/17 09/08/17 09/08/17 04:05 04:05 04:41 WBC 49.7 H* RBC 2.58 L Hgb 7.3 L Hct 22.7 L MCV MCH RDW 22.5 H Plt Count Lymph % (Auto) Bailey % (Auto) Bailey # Seg Neutrophils % Seg Neuts % (Manual) 90.5 H Lymphocytes % (Manual) 1.5 L Monocytes % (Manual) Nucleated RBC % Seg Neutrophils # Seg Neutrophils # Man 45.0 H Lymphocytes # (Manual) 0.7 L Monocytes # (Manual) 1.7 H Eosinophils # (Manual) Basophils # (Manual) PT INR POC ABG pH ABG pH POC ABG pCO2 POC ABG pO2 ABG pO2 ABG O2 Saturation ABG Base Excess ABG Hemoglobin Oxyhemoglobin Sodium 132 L Potassium Chloride 92.1 L Carbon Dioxide BUN 82 H Creatinine 2.2 H Glucose 162 H POC Glucose 235 H Calcium 8.3 L Phosphorus 5.20 H D Magnesium Iron TIBC Ferritin Total Bilirubin AST ALT Alkaline Phosphatase 199 H Total Creatine Kinase Troponin T C-Reactive Protein Total Protein 4.5 L Albumin 1.7 L Triglycerides HDL Cholesterol Miscellaneous Test Crossmatch 09/08/17 09/08/17 09/08/17 09:21 11:52 17:38 WBC RBC Hgb Hct MCV MCH RDW Plt Count Lymph % (Auto) Bailey % (Auto) Bailey # Seg Neutrophils % Seg Neuts % (Manual) Lymphocytes % (Manual) Monocytes % (Manual) Nucleated RBC % Seg Neutrophils # Seg Neutrophils # Man Lymphocytes # (Manual) Monocytes # (Manual) Eosinophils # (Manual) Basophils # (Manual) PT INR POC ABG pH ABG pH POC ABG pCO2 POC ABG pO2 ABG pO2 218.5 H ABG O2 Saturation 99.3 H ABG Base Excess -3.5 L ABG Hemoglobin 7.7 L Oxyhemoglobin Sodium Potassium Chloride Carbon Dioxide BUN Creatinine Glucose POC Glucose 220 H 194 H Calcium Phosphorus Magnesium Iron TIBC Ferritin Total Bilirubin AST ALT Alkaline Phosphatase Total Creatine Kinase Troponin T C-Reactive Protein Total Protein Albumin Triglycerides HDL Cholesterol Miscellaneous Test Crossmatch 09/09/17 09/09/17 09/09/17 00:24 03:37 03:37 WBC 33.5 H RBC 2.36 L Hgb 6.7 L Hct 20.9 L MCV MCH RDW 22.7 H Plt Count Lymph % (Auto) Bailey % (Auto) Bailey # Seg Neutrophils % Seg Neuts % (Manual) Lymphocytes % (Manual) Monocytes % (Manual) Nucleated RBC % Seg Neutrophils # Seg Neutrophils # Man Lymphocytes # (Manual) Monocytes # (Manual) Eosinophils # (Manual) Basophils # (Manual) PT INR POC ABG pH ABG pH POC ABG pCO2 POC ABG pO2 ABG pO2 ABG O2 Saturation ABG Base Excess ABG Hemoglobin Oxyhemoglobin Sodium 132 L Potassium Chloride 91.6 L Carbon Dioxide 21 L BUN 101 H Creatinine 2.6 H Glucose 156 H POC Glucose 182 H Calcium 8.3 L Phosphorus 5.90 H Magnesium 2.60 H Iron TIBC Ferritin Total Bilirubin AST ALT Alkaline Phosphatase Total Creatine Kinase Troponin T C-Reactive Protein Total Protein Albumin Triglycerides HDL Cholesterol Miscellaneous Test Crossmatch 09/09/17 09/09/17 09/09/17 05:29 12:03 18:05 WBC RBC Hgb Hct MCV MCH RDW Plt Count Lymph % (Auto) Bailey % (Auto) Bailey # Seg Neutrophils % Seg Neuts % (Manual) Lymphocytes % (Manual) Monocytes % (Manual) Nucleated RBC % Seg Neutrophils # Seg Neutrophils # Man Lymphocytes # (Manual) Monocytes # (Manual) Eosinophils # (Manual) Basophils # (Manual) PT INR POC ABG pH ABG pH POC ABG pCO2 POC ABG pO2 ABG pO2 ABG O2 Saturation ABG Base Excess ABG Hemoglobin Oxyhemoglobin Sodium Potassium Chloride Carbon Dioxide BUN Creatinine Glucose POC Glucose 168 H 143 H 173 H Calcium Phosphorus Magnesium Iron TIBC Ferritin Total Bilirubin AST ALT Alkaline Phosphatase Total Creatine Kinase Troponin T C-Reactive Protein Total Protein Albumin Triglycerides HDL Cholesterol Miscellaneous Test Crossmatch 09/09/17 09/09/17 09/10/17 23:30 Unknown 05:04 WBC RBC Hgb Hct MCV MCH RDW Plt Count Lymph % (Auto) Bailey % (Auto) Bailey # Seg Neutrophils % Seg Neuts % (Manual) Lymphocytes % (Manual) Monocytes % (Manual) Nucleated RBC % Seg Neutrophils # Seg Neutrophils # Man Lymphocytes # (Manual) Monocytes # (Manual) Eosinophils # (Manual) Basophils # (Manual) PT INR POC ABG pH ABG pH 7.323 L POC ABG pCO2 POC ABG pO2 ABG pO2 94.1 H ABG O2 Saturation ABG Base Excess -4.8 L ABG Hemoglobin 8.0 L Oxyhemoglobin 94.9 L Sodium Potassium Chloride Carbon Dioxide BUN Creatinine Glucose POC Glucose 212 H 155 H Calcium Phosphorus Magnesium Iron TIBC Ferritin Total Bilirubin AST ALT Alkaline Phosphatase Total Creatine Kinase Troponin T C-Reactive Protein Total Protein Albumin Triglycerides HDL Cholesterol Miscellaneous Test Crossmatch 09/10/17 09/10/17 09/10/17 07:00 09:55 12:22 WBC 24.7 H RBC 2.62 L Hgb 7.5 L Hct 22.5 L MCV MCH RDW 20.8 H Plt Count Lymph % (Auto) Bailey % (Auto) Bailey # Seg Neutrophils % Seg Neuts % (Manual) Lymphocytes % (Manual) Monocytes % (Manual) Nucleated RBC % Seg Neutrophils # Seg Neutrophils # Man Lymphocytes # (Manual) Monocytes # (Manual) Eosinophils # (Manual) Basophils # (Manual) PT INR POC ABG pH ABG pH POC ABG pCO2 POC ABG pO2 ABG pO2 ABG O2 Saturation ABG Base Excess ABG Hemoglobin Oxyhemoglobin Sodium Potassium Chloride 97.9 L Carbon Dioxide BUN 78 H Creatinine 2.0 H Glucose 126 H POC Glucose 183 H Calcium 8.2 L Phosphorus Magnesium Iron TIBC Ferritin Total Bilirubin AST ALT Alkaline Phosphatase Total Creatine Kinase Troponin T C-Reactive Protein Total Protein Albumin Triglycerides HDL Cholesterol Miscellaneous Test Crossmatch 09/11/17 09/11/17 09/11/17 00:08 03:50 05:28 WBC 21.6 H RBC 2.52 L Hgb 7.4 L Hct 22.2 L MCV MCH RDW 21.5 H Plt Count Lymph % (Auto) Bailey % (Auto) Bailey # Seg Neutrophils % Seg Neuts % (Manual) 92.0 H Lymphocytes % (Manual) 3.0 L Monocytes % (Manual) Nucleated RBC % Seg Neutrophils # Seg Neutrophils # Man 19.9 H Lymphocytes # (Manual) 0.6 L Monocytes # (Manual) Eosinophils # (Manual) Basophils # (Manual) PT INR POC ABG pH ABG pH POC ABG pCO2 POC ABG pO2 ABG pO2 ABG O2 Saturation ABG Base Excess ABG Hemoglobin Oxyhemoglobin Sodium Potassium Chloride Carbon Dioxide BUN Creatinine Glucose POC Glucose 213 H 181 H Calcium Phosphorus Magnesium Iron TIBC Ferritin Total Bilirubin AST ALT Alkaline Phosphatase Total Creatine Kinase Troponin T C-Reactive Protein Total Protein Albumin Triglycerides HDL Cholesterol Miscellaneous Test Crossmatch 09/11/17 09/11/17 09/11/17 11:55 17:56 23:12 WBC RBC Hgb Hct MCV MCH RDW Plt Count Lymph % (Auto) Bailey % (Auto) Bailey # Seg Neutrophils % Seg Neuts % (Manual) Lymphocytes % (Manual) Monocytes % (Manual) Nucleated RBC % Seg Neutrophils # Seg Neutrophils # Man Lymphocytes # (Manual) Monocytes # (Manual) Eosinophils # (Manual) Basophils # (Manual) PT INR POC ABG pH ABG pH POC ABG pCO2 POC ABG pO2 ABG pO2 ABG O2 Saturation ABG Base Excess ABG Hemoglobin Oxyhemoglobin Sodium Potassium Chloride Carbon Dioxide 21 L BUN 80 H Creatinine 2.1 H Glucose 170 H POC Glucose 277 H 206 H Calcium 8.0 L Phosphorus Magnesium Iron TIBC Ferritin Total Bilirubin AST ALT Alkaline Phosphatase Total Creatine Kinase Troponin T C-Reactive Protein Total Protein Albumin Triglycerides HDL Cholesterol Miscellaneous Test Crossmatch 09/11/17 09/12/17 09/12/17 23:36 05:25 05:25 WBC 17.4 H RBC 2.29 L Hgb 6.7 L Hct 20.4 L MCV MCH RDW 21.2 H Plt Count Lymph % (Auto) Bailey % (Auto) Bailey # Seg Neutrophils % Seg Neuts % (Manual) 79.0 H Lymphocytes % (Manual) 5.0 L Monocytes % (Manual) Nucleated RBC % 1.0 H Seg Neutrophils # Seg Neutrophils # Man 13.7 H Lymphocytes # (Manual) 0.9 L Monocytes # (Manual) 1.2 H Eosinophils # (Manual) Basophils # (Manual) PT INR POC ABG pH ABG pH POC ABG pCO2 POC ABG pO2 ABG pO2 ABG O2 Saturation ABG Base Excess ABG Hemoglobin Oxyhemoglobin Sodium Potassium Chloride Carbon Dioxide BUN Creatinine Glucose POC Glucose 190 H Calcium Phosphorus Magnesium Iron 22 L TIBC 81 L Ferritin Total Bilirubin AST ALT Alkaline Phosphatase Total Creatine Kinase Troponin T C-Reactive Protein Total Protein Albumin Triglycerides HDL Cholesterol Miscellaneous Test Crossmatch 09/12/17 09/12/17 09/12/17 05:25 05:36 09:14 WBC RBC Hgb Hct MCV MCH RDW Plt Count Lymph % (Auto) Bailey % (Auto) Bailey # Seg Neutrophils % Seg Neuts % (Manual) Lymphocytes % (Manual) Monocytes % (Manual) Nucleated RBC % Seg Neutrophils # Seg Neutrophils # Man Lymphocytes # (Manual) Monocytes # (Manual) Eosinophils # (Manual) Basophils # (Manual) PT INR POC ABG pH ABG pH POC ABG pCO2 POC ABG pO2 ABG pO2 ABG O2 Saturation ABG Base Excess ABG Hemoglobin Oxyhemoglobin Sodium Potassium Chloride Carbon Dioxide BUN Creatinine Glucose POC Glucose 141 H Calcium Phosphorus Magnesium Iron TIBC Ferritin > 2000.0 H Total Bilirubin AST ALT Alkaline Phosphatase Total Creatine Kinase Troponin T C-Reactive Protein Total Protein Albumin Triglycerides HDL Cholesterol Miscellaneous Test Crossmatch See Detail 09/12/17 09/12/17 09/12/17 11:18 15:22 17:18 WBC RBC Hgb 8.5 L Hct 25.4 L MCV MCH RDW Plt Count Lymph % (Auto) Bailey % (Auto) Bailey # Seg Neutrophils % Seg Neuts % (Manual) Lymphocytes % (Manual) Monocytes % (Manual) Nucleated RBC % Seg Neutrophils # Seg Neutrophils # Man Lymphocytes # (Manual) Monocytes # (Manual) Eosinophils # (Manual) Basophils # (Manual) PT INR POC ABG pH ABG pH POC ABG pCO2 POC ABG pO2 ABG pO2 ABG O2 Saturation ABG Base Excess ABG Hemoglobin Oxyhemoglobin Sodium Potassium Chloride Carbon Dioxide BUN Creatinine Glucose POC Glucose 262 H 193 H Calcium Phosphorus Magnesium Iron TIBC Ferritin Total Bilirubin AST ALT Alkaline Phosphatase Total Creatine Kinase Troponin T C-Reactive Protein Total Protein Albumin Triglycerides HDL Cholesterol Miscellaneous Test Crossmatch 09/13/17 09/13/17 09/13/17 00:05 06:25 11:36 WBC RBC Hgb Hct MCV MCH RDW Plt Count Lymph % (Auto) Bailey % (Auto) Bailey # Seg Neutrophils % Seg Neuts % (Manual) Lymphocytes % (Manual) Monocytes % (Manual) Nucleated RBC % Seg Neutrophils # Seg Neutrophils # Man Lymphocytes # (Manual) Monocytes # (Manual) Eosinophils # (Manual) Basophils # (Manual) PT INR POC ABG pH 7.347 L ABG pH POC ABG pCO2 34.3 L POC ABG pO2 134 H ABG pO2 ABG O2 Saturation ABG Base Excess ABG Hemoglobin Oxyhemoglobin Sodium Potassium Chloride Carbon Dioxide BUN Creatinine Glucose POC Glucose 235 H 286 H Calcium Phosphorus Magnesium Iron TIBC Ferritin Total Bilirubin AST ALT Alkaline Phosphatase Total Creatine Kinase Troponin T C-Reactive Protein Total Protein Albumin Triglycerides HDL Cholesterol Miscellaneous Test Crossmatch 09/13/17 09/13/17 09/13/17 11:56 17:25 23:18 WBC RBC Hgb Hct MCV MCH RDW Plt Count Lymph % (Auto) Bailey % (Auto) Bailey # Seg Neutrophils % Seg Neuts % (Manual) Lymphocytes % (Manual) Monocytes % (Manual) Nucleated RBC % Seg Neutrophils # Seg Neutrophils # Man Lymphocytes # (Manual) Monocytes # (Manual) Eosinophils # (Manual) Basophils # (Manual) PT INR POC ABG pH ABG pH POC ABG pCO2 POC ABG pO2 ABG pO2 ABG O2 Saturation ABG Base Excess ABG Hemoglobin Oxyhemoglobin Sodium Potassium Chloride Carbon Dioxide BUN Creatinine Glucose POC Glucose 318 H 278 H 230 H Calcium Phosphorus Magnesium Iron TIBC Ferritin Total Bilirubin AST ALT Alkaline Phosphatase Total Creatine Kinase Troponin T C-Reactive Protein Total Protein Albumin Triglycerides HDL Cholesterol Miscellaneous Test Crossmatch 09/13/17 09/13/17 09/13/17 Unknown Unknown Unknown WBC 15.6 H RBC 2.72 L Hgb 8.1 L Hct 23.9 L MCV MCH RDW 19.5 H Plt Count 137 L Lymph % (Auto) Bailey % (Auto) Bailey # Seg Neutrophils % Seg Neuts % (Manual) 73.0 H Lymphocytes % (Manual) 3.0 L Monocytes % (Manual) 19.0 H Nucleated RBC % 2.0 H Seg Neutrophils # Seg Neutrophils # Man 11.4 H Lymphocytes # (Manual) 0.5 L Monocytes # (Manual) 3.0 H Eosinophils # (Manual) Basophils # (Manual) PT INR POC ABG pH ABG pH POC ABG pCO2 POC ABG pO2 ABG pO2 ABG O2 Saturation ABG Base Excess ABG Hemoglobin Oxyhemoglobin Sodium Potassium Chloride Carbon Dioxide 19 L BUN 103 H Creatinine 2.6 H Glucose 173 H POC Glucose Calcium Phosphorus Magnesium Iron TIBC Ferritin Total Bilirubin AST ALT Alkaline Phosphatase Total Creatine Kinase Troponin T C-Reactive Protein Total Protein Albumin < 0.2 L Triglycerides HDL Cholesterol Miscellaneous Test Crossmatch 09/14/17 09/14/17 09/14/17 03:15 03:15 05:16 WBC 12.5 H RBC 2.55 L Hgb 7.6 L Hct 22.5 L MCV MCH RDW 19.8 H Plt Count 139 L Lymph % (Auto) Bailey % (Auto) Bailey # Seg Neutrophils % Seg Neuts % (Manual) Lymphocytes % (Manual) Monocytes % (Manual) Nucleated RBC % Seg Neutrophils # Seg Neutrophils # Man Lymphocytes # (Manual) Monocytes # (Manual) Eosinophils # (Manual) Basophils # (Manual) PT INR POC ABG pH ABG pH POC ABG pCO2 POC ABG pO2 ABG pO2 ABG O2 Saturation ABG Base Excess ABG Hemoglobin Oxyhemoglobin Sodium Potassium Chloride Carbon Dioxide BUN 75 H Creatinine 2.1 H Glucose 217 H POC Glucose 283 H Calcium Phosphorus 2.20 L D Magnesium Iron TIBC Ferritin Total Bilirubin AST ALT Alkaline Phosphatase Total Creatine Kinase Troponin T C-Reactive Protein Total Protein Albumin Triglycerides HDL Cholesterol Miscellaneous Test Crossmatch 09/14/17 09/14/17 09/15/17 12:11 17:47 00:03 WBC RBC Hgb Hct MCV MCH RDW Plt Count Lymph % (Auto) Bailey % (Auto) Bailey # Seg Neutrophils % Seg Neuts % (Manual) Lymphocytes % (Manual) Monocytes % (Manual) Nucleated RBC % Seg Neutrophils # Seg Neutrophils # Man Lymphocytes # (Manual) Monocytes # (Manual) Eosinophils # (Manual) Basophils # (Manual) PT INR POC ABG pH ABG pH POC ABG pCO2 POC ABG pO2 ABG pO2 ABG O2 Saturation ABG Base Excess ABG Hemoglobin Oxyhemoglobin Sodium Potassium Chloride Carbon Dioxide BUN Creatinine Glucose POC Glucose 251 H 289 H 229 H Calcium Phosphorus Magnesium Iron TIBC Ferritin Total Bilirubin AST ALT Alkaline Phosphatase Total Creatine Kinase Troponin T C-Reactive Protein Total Protein Albumin Triglycerides HDL Cholesterol Miscellaneous Test Crossmatch 09/15/17 09/15/17 09/15/17 05:00 05:00 05:30 WBC 11.7 H RBC 2.50 L Hgb 7.4 L Hct 22.7 L MCV MCH RDW 20.5 H Plt Count Lymph % (Auto) Bailey % (Auto) Bailey # Seg Neutrophils % Seg Neuts % (Manual) Lymphocytes % (Manual) 11.0 L Monocytes % (Manual) 11.0 H Nucleated RBC % Seg Neutrophils # Seg Neutrophils # Man Lymphocytes # (Manual) Monocytes # (Manual) 1.3 H Eosinophils # (Manual) Basophils # (Manual) PT INR POC ABG pH ABG pH POC ABG pCO2 POC ABG pO2 ABG pO2 ABG O2 Saturation ABG Base Excess ABG Hemoglobin Oxyhemoglobin Sodium Potassium Chloride 97.0 L Carbon Dioxide 21 L BUN 94 H Creatinine 2.4 H Glucose 194 H POC Glucose 225 H Calcium Phosphorus Magnesium Iron TIBC Ferritin Total Bilirubin AST ALT Alkaline Phosphatase Total Creatine Kinase Troponin T C-Reactive Protein Total Protein Albumin Triglycerides HDL Cholesterol Miscellaneous Test Crossmatch 09/15/17 09/15/17 09/15/17 07:48 11:38 12:45 WBC RBC 1.93 L Hgb 5.7 L* Hct 17.1 L* MCV MCH RDW 20.2 H Plt Count 125 L Lymph % (Auto) Bailey % (Auto) Bailey # Seg Neutrophils % Seg Neuts % (Manual) 79.0 H Lymphocytes % (Manual) 8.0 L Monocytes % (Manual) Nucleated RBC % Seg Neutrophils # Seg Neutrophils # Man Lymphocytes # (Manual) 0.8 L Monocytes # (Manual) Eosinophils # (Manual) Basophils # (Manual) PT INR POC ABG pH ABG pH POC ABG pCO2 POC ABG pO2 ABG pO2 ABG O2 Saturation ABG Base Excess ABG Hemoglobin Oxyhemoglobin Sodium Potassium Chloride Carbon Dioxide BUN Creatinine Glucose POC Glucose 245 H 253 H Calcium Phosphorus Magnesium Iron TIBC Ferritin Total Bilirubin AST ALT Alkaline Phosphatase Total Creatine Kinase Troponin T C-Reactive Protein Total Protein Albumin Triglycerides HDL Cholesterol Miscellaneous Test Crossmatch 09/15/17 09/15/17 09/15/17 12:45 12:45 22:25 WBC 19.6 H RBC 3.32 L Hgb 10.0 L D Hct 29.3 L D MCV MCH RDW 17.0 H Plt Count 123 L Lymph % (Auto) Bailey % (Auto) Bailey # Seg Neutrophils % Seg Neuts % (Manual) Lymphocytes % (Manual) 12.0 L Monocytes % (Manual) Nucleated RBC % 5.0 H Seg Neutrophils # Seg Neutrophils # Man 11.0 H Lymphocytes # (Manual) Monocytes # (Manual) 1.2 H Eosinophils # (Manual) Basophils # (Manual) PT 15.4 H INR 1.16 H POC ABG pH ABG pH POC ABG pCO2 POC ABG pO2 ABG pO2 ABG O2 Saturation ABG Base Excess ABG Hemoglobin Oxyhemoglobin Sodium Potassium Chloride Carbon Dioxide BUN Creatinine Glucose POC Glucose Calcium Phosphorus Magnesium Iron TIBC Ferritin Total Bilirubin AST ALT Alkaline Phosphatase Total Creatine Kinase Troponin T C-Reactive Protein Total Protein Albumin Triglycerides HDL Cholesterol Miscellaneous Test Crossmatch See Detail 09/15/17 09/15/17 09/16/17 22:25 23:38 01:26 WBC RBC Hgb Hct MCV MCH RDW Plt Count Lymph % (Auto) Bailey % (Auto) Bailey # Seg Neutrophils % Seg Neuts % (Manual) Lymphocytes % (Manual) Monocytes % (Manual) Nucleated RBC % Seg Neutrophils # Seg Neutrophils # Man Lymphocytes # (Manual) Monocytes # (Manual) Eosinophils # (Manual) Basophils # (Manual) PT INR POC ABG pH ABG pH POC ABG pCO2 POC ABG pO2 ABG pO2 ABG O2 Saturation ABG Base Excess ABG Hemoglobin Oxyhemoglobin Sodium Potassium Chloride Carbon Dioxide 17 L BUN 100 H Creatinine 2.6 H Glucose POC Glucose 58 L 132 H Calcium 8.3 L Phosphorus Magnesium 1.60 L Iron TIBC Ferritin Total Bilirubin 2.80 H AST 118 H ALT Alkaline Phosphatase 316 H Total Creatine Kinase Troponin T C-Reactive Protein Total Protein 4.0 L Albumin 1.8 L Triglycerides HDL Cholesterol Miscellaneous Test Crossmatch 09/16/17 09/16/17 09/16/17 05:30 05:30 05:54 WBC 24.6 H RBC 3.22 L Hgb 9.8 L Hct 28.6 L MCV MCH RDW 17.4 H Plt Count 127 L Lymph % (Auto) Bailey % (Auto) Bailey # Seg Neutrophils % Seg Neuts % (Manual) Lymphocytes % (Manual) Monocytes % (Manual) Nucleated RBC % Seg Neutrophils # Seg Neutrophils # Man Lymphocytes # (Manual) Monocytes # (Manual) Eosinophils # (Manual) Basophils # (Manual) PT INR POC ABG pH ABG pH POC ABG pCO2 POC ABG pO2 ABG pO2 ABG O2 Saturation ABG Base Excess ABG Hemoglobin Oxyhemoglobin Sodium Potassium Chloride Carbon Dioxide 18 L BUN 109 H Creatinine 2.5 H Glucose 140 H POC Glucose 154 H Calcium Phosphorus 4.80 H Magnesium Iron TIBC Ferritin Total Bilirubin 2.40 H AST 90 H ALT Alkaline Phosphatase 298 H Total Creatine Kinase 20 L Troponin T C-Reactive Protein Total Protein 4.1 L Albumin 1.8 L Triglycerides HDL Cholesterol Miscellaneous Test Crossmatch
[2017-09-16] MEDS: PROTONIX IV SCH (09:17)
[2017-09-16] MEDS: MYCAMINE 100 MG in NACL 0.9% 100 ML IV SCH (09:17)
[2017-09-16] MEDS: LEVEMIR SUB-Q SCH (09:18)
--- NOTE | 2017-09-16 10:33 | Progress Note ---
Assessment and Plan Assessment and plan: Acute hypoxic respiratory failure on Mechanical ventilation > 96 hours continue ventilator support s/p tracheostomy on 09/09/17, had failed extubation multiple times Sepsis secondary to peritonitis, Intra abdominal abscess and Bowel obstruction Patient had completed 14 days of meropenem and diflucan, was restarted again due to fever/septic shock continue abx per ID recommendation. Currently on Meropenem and Micafungin she has had the following procedures 08/31: Ex lap with abdominal wash out and closure 08/17: Ex lap with G tube placement, EGD, abdominal wash out and removal of PD Cath 09/15/17 Ex lap, transverse colectomy,right sided colostomy,abdominal washout Acute GI bleeding with severe acute blood loss anemia EGD showed small gastric ulcer, ulcerative esophagitis, she had multiple transfusions Patient had CTA of abdomen and pelvis no active bleeding, CT Abdomen repeated , no acute findings transfuse to keep Hg above 8 given septic shock Anemia of Hgb 5.7 yesterday due to acute blood loss, intraabdominal bleed. She was taken to OR yesterday. Colonic perforation and intraabdominal bleed yesterday. Hemoglobin dropped to5.7. Exploratory lap,transverse colectomy, right sided colostomy and abdominal washout done by Dr. Chamorro, Surg. Hemoglobin 9.8 today after 3 Units PRBC transfused yesterday ESRD. Dialysis as per Nephrology. Septic shock. Still on IV pressors,Vasopressin and Levophed but is being weaned down I discussed with Nurse at bedside continue abx, ID input appreciated Arterial line placed on left upper ext on 09/13/17 Severe Protein calorie malnutrition Continue with TPN Sacral and lower extremity wound, POA continue wound care NSVT, resolved, was likely due to levophed, wean as tolerated DVT prophylaxis; SCDs Not on anticoagualation because of GI bleed Disposition: continue ICU care Prognosis: guarded On Saturday09/13/17 at 9am, we had a lengthy family meeting about 30-35 mins. Those present: myself, Dr. Mcmahan, Dr. Rasmussen, Surgeon, Dr. Carvajal ID Physician, Shyanne Fink, caser shoe parts, and patient's family including and daughter. Discuss with family regularly. History Interval history: Patient with severe sepsis,septic shock, Taken to OR yesterday Patient still on 2 pressors, No fever Hospitalist Physical - Physical exam Narrative exam: Gen Appearance: Not in acute distress,morbidly obese HEENT: normocephalic, atraumatic Neck: supple, no JVD, Tracheostomy Lungs: Clear to auscultation, no rales, no wheezing, Heart: S1 and S2 regular, no murmurs,no rubs or gallop, Abdomen: Soft , non tender, non distended, Dressing over abdomen, G tube, right colostopy, surgical drain Extremity:Bilateral edema, no clubbing or cyanosis, Neuro : Sedated with Fentanyl - Constitutional Vitals: Temp Pulse Resp BP Pulse Ox 98.7 F 92 H 24 96/51 100 09/16/17 08:00 09/16/17 10:15 09/16/17 10:15 09/16/17 10:15 09/16/17 10:15 General appearance: Present: mild distress Results - Labs CBC & Chem 7: 09/17/17 06:10 09/17/17 06:10 Labs: Laboratory Last Values WBC 24.6 K/mm3 (4.5-11.0) H 09/16/17 05:30 RBC 3.22 M/mm3 (3.65-5.03) L 09/16/17 05:30 Hgb 9.8 gm/dl (10.1-14.3) L 09/16/17 05:30 Hct 28.6 % (30.3-42.9) L 09/16/17 05:30 MCV 89 fl (79-97) 09/16/17 05:30 MCH 30 pg (28-32) 09/16/17 05:30 MCHC 34 % (30-34) 09/16/17 05:30 RDW 17.4 % (13.2-15.2) H 09/16/17 05:30 Plt Count 127 K/mm3 (140-440) L 09/16/17 05:30 Lymph % (Auto) [employer]ier And Salesperson 08/19/17 07:37 [place] % (Auto) Cashier And Salesperson 09/13/17 Unknown Eos % (Auto) Cashier And Salesperson 08/19/17 07:37 Baso % (Auto) [employer]ier And Salesperson 08/19/17 07:37 Lymph # [employer]ier And Salesperson 08/19/17 07:37 [place] # Cashier And Salesperson 08/19/17 07:37 Eos # Cashier And Salesperson 08/19/17 07:37 Baso # Cashier And Salesperson 08/19/17 07:37 Add Manual Diff Complete 09/15/17 22:25 Total Counted 100 09/15/17 22:25 Seg Neutrophils % Cashier And Salesperson 09/08/17 04:05 Seg Neuts % (Manual) 56.0 % (40.0-70.0) 09/15/17 22:25 Band Neutrophils % 26.0 % 09/15/17 22:25 Lymphocytes % (Manual) 12.0 % (13.4-35.0) L 09/15/17 22:25 Reactive Lymphs % (Man) 0 % 09/15/17 22:25 Monocytes % (Manual) 6.0 % (0.0-7.3) 09/15/17 22:25 Eosinophils % (Manual) 0 % (0.0-4.3) 09/15/17 22:25 Basophils % (Manual) 0 % (0.0-1.8) 09/15/17 22:25 Metamyelocytes % 0 % 09/15/17 22:25 Myelocytes % 0 % 09/15/17 22:25 Promyelocytes % 0 % 09/15/17 22:25 Blast Cells % 0 % 09/15/17 22:25 Nucleated RBC % 5.0 % (0.0-0.9) H 09/15/17 22:25 Seg Neutrophils # Cashier And Salesperson 08/19/17 07:37 Seg Neutrophils # Man 11.0 K/mm3 (1.8-7.7) H 09/15/17 22:25 Band Neutrophils # 5.1 K/mm3 09/15/17 22:25 Lymphocytes # (Manual) 2.4 K/mm3 (1.2-5.4) 09/15/17 22:25 Abs React Lymphs (Man) 0.0 K/mm3 09/15/17 22:25 Monocytes # (Manual) 1.2 K/mm3 (0.0-0.8) H 09/15/17 22:25 Eosinophils # (Manual) 0.0 K/mm3 (0.0-0.4) 09/15/17 22:25 Basophils # (Manual) 0.0 K/mm3 (0.0-0.1) 09/15/17 22:25 Metamyelocytes # 0.0 K/mm3 09/15/17 22:25 Myelocytes # 0.0 K/mm3 09/15/17 22:25 Promyelocytes # 0.0 K/mm3 09/15/17 22:25 Blast Cells # 0.0 K/mm3 09/15/17 22:25 Pathologist Review Not Reportable 08/30/17 05:20 WBC Morphology Not Reportable 09/15/17 22:25 Hypersegmented Neuts Not Reportable 09/15/17 22:25 Hyposegmented Neuts Not Reportable 09/15/17 22:25 Hypogranular Neuts Not Reportable 09/15/17 22:25 Smudge Cells Not Reportable 09/15/17 22:25 Toxic Granulation Not Reportable 09/15/17 22:25 Toxic Vacuolation Not Reportable 09/15/17 22:25 Dohle Bodies Not Reportable 09/15/17 22:25 Pelger-Huet Anomaly Not Reportable 09/15/17 22:25 Ariel Rods Not Reportable 09/15/17 22:25 Platelet Estimate Consistent w auto 09/15/17 22:25 Clumped Platelets Not Reportable 09/15/17 22:25 Plt Clumps, EDTA Not Reportable 09/15/17 22:25 Large Platelets Not Reportable 09/15/17 22:25 Giant Platelets Not Reportable 09/15/17 22:25 Platelet Satelliting Not Reportable 09/15/17 22:25 Plt Morphology Comment Not Reportable 09/15/17 22:25 RBC Morphology Not Reportable 09/15/17 22:25 Dimorphic RBCs Not Reportable 09/15/17 22:25 Polychromasia Not Reportable 09/15/17 22:25 Hypochromasia 1+ 09/15/17 22:25 Poikilocytosis Not Reportable 09/15/17 22:25 Anisocytosis 1+ 09/15/17 22:25 Microcytosis Few 09/15/17 22:25 Macrocytosis Not Reportable 09/15/17 22:25 Spherocytes Not Reportable 09/15/17 22:25 Pappenheimer Bodies Not Reportable 09/15/17 22:25 Sickle Cells Not Reportable 09/15/17 22:25 Target Cells Few 09/15/17 22:25 Tear Drop Cells Not Reportable 09/15/17 22:25 Ovalocytes Not Reportable 09/15/17 22:25 Stomatocytes Rare 09/12/17 05:25 Helmet Cells Not Reportable 09/15/17 22:25 Vera-[place] Bodies Not Reportable 09/15/17 22:25 Wrens Rings Not Reportable 09/15/17 22:25 Yusuf Cells Not Reportable 09/15/17 22:25 Bite Cells Not Reportable 09/15/17 22:25 Crenated Cell Not Reportable 09/15/17 22:25 Elliptocytes Not Reportable 09/15/17 22:25 Acanthocytes (Spur) Not Reportable 09/15/17 22:25 Rouleaux Not Reportable 09/15/17 22:25 Hemoglobin C Crystals Not Reportable 09/15/17 22:25 Schistocytes Not Reportable 09/15/17 22:25 Malaria parasites Not Reportable 09/15/17 22:25 Jovanni Bodies Not Reportable 09/15/17 22:25 Hem Pathologist Commnt No 09/15/17 22:25 PT 15.4 Sec. (12.2-14.9) H 09/15/17 12:45 INR 1.16 (0.87-1.13) H 09/15/17 12:45 APTT 28.7 Sec. (24.2-36.6) 08/31/17 18:15 POC ABG pH 7.347 (7.35-7.45) L 09/13/17 11:36 ABG pH 7.323 pH Units (7.350-7.450) L 09/09/17 Unknown POC ABG pCO2 34.3 (35-45) L 09/13/17 11:36 ABG pCO2 41.1 mm Hg 09/09/17 Unknown POC ABG pO2 134 (80-105) H 09/13/17 11:36 ABG pO2 94.1 mm Hg (80.0-90.0) H 09/09/17 Unknown POC ABG HCO3 18.8 09/13/17 11:36 ABG HCO3 20.9 mmol/L (20.0-26.0) 09/09/17 Unknown POC ABG Total CO2 20 09/13/17 11:36 POC ABG O2 Sat 99 09/13/17 11:36 ABG O2 Saturation 97.2 % (95.0-99.0) 09/09/17 Unknown ABG O2 Content 10.9 (0.0-44) 09/09/17 Unknown POC ABG Base Excess -7 09/13/17 11:36 ABG Base Excess -4.8 mmol/L (-2.0-3.0) L 09/09/17 Unknown ABG Hemoglobin 8.0 gm/dl (12.0-16.0) L 09/09/17 Unknown ABG Carboxyhemoglobin 2.0 % (0.0-5.0) 09/09/17 Unknown ABG Methemoglobin 0.3 % (0.0-1.5) 09/09/17 Unknown VBG pH 7.462 (7.320-7.420) H 08/08/17 14:52 Oxyhemoglobin 94.9 % (95.0-99.0) L 09/09/17 Unknown FiO2 30 % 09/13/17 11:36 Sodium 138 mmol/L (137-145) 09/16/17 05:30 Potassium 5.0 mmol/L (3.6-5.0) 09/16/17 05:30 Chloride 100.6 mmol/L (98-107) 09/16/17 05:30 Carbon Dioxide 18 mmol/L (22-30) L 09/16/17 05:30 Anion Gap 24 mmol/L 09/16/17 05:30 BUN 109 mg/dL (7-17) H 09/16/17 05:30 Creatinine 2.5 mg/dL (0.7-1.2) H 09/16/17 05:30 Estimated GFR 24 ml/min 09/16/17 05:30 BUN/Creatinine Ratio 44 % 09/16/17 05:30 Glucose 140 mg/dL (65-100) H 09/16/17 05:30 POC Glucose 154 (70-105) H 09/16/17 05:54 Lactic Acid 1.60 mmol/L (0.7-2.0) 08/17/17 11:20 Calcium 8.5 mg/dL (8.4-10.2) 09/16/17 05:30 Phosphorus 4.80 mg/dL (2.5-4.5) H 09/16/17 05:30 Magnesium 1.70 mg/dL (1.7-2.3) 09/16/17 05:30 Iron 22 ug/dL (37-170) L 09/12/17 05:25 TIBC 81 mcg/dL (250-450) L 09/12/17 05:25 Ferritin > 2000.0 ng/mL (13.0-400.0) H 09/12/17 05:25 Total Bilirubin 2.40 mg/dL (0.1-1.2) H 09/16/17 05:30 Direct Bilirubin 0.2 mg/dL (0-0.2) 08/08/17 14:11 Indirect Bilirubin 0.3 mg/dL 08/08/17 14:11 AST 90 units/L (5-40) H 09/16/17 05:30 ALT 45 units/L (7-56) 09/16/17 05:30 Alkaline Phosphatase 298 units/L (35-129) H 09/16/17 05:30 Ammonia 25.0 umol/L (25-60) 08/08/17 14:52 Total Creatine Kinase 20 units/L (30-135) L 09/16/17 05:30 Troponin T 0.132 ng/mL (0.00-0.029) H* 08/09/17 13:25 C-Reactive Protein 2.80 mg/dL (0.00-1.30) H 09/06/17 05:30 NT-Pro-B Natriuret Pep 6156 pg/mL (0-900) H 08/08/17 14:11 Total Protein 4.1 g/dL (6.3-8.2) L 09/16/17 05:30 Albumin 1.8 g/dL (3.9-5) L 09/16/17 05:30 Albumin/Globulin Ratio 0.8 % 09/16/17 05:30 Triglycerides 180 mg/dL (2-149) H 09/03/17 04:00 Cholesterol 91 mg/dL (50-199) 08/08/17 21:23 LDL Cholesterol Direct 53 mg/dL (50-130) 08/08/17 21:23 HDL Cholesterol 26 mg/dL (40-59) L 08/08/17 21:23 Cholesterol/HDL Ratio 3.50 % 08/08/17 21:23 Amylase 45 units/L (27-131) 08/16/17 09:50 Lipase 34 units/L (13-60) 08/16/17 09:50 TSH 6.580 mlU/mL (0.270-4.200) H 08/08/17 14:22 Free T4 1.46 ng/dL (0.76-1.46) 08/08/17 14: Total Cortisol 28.3 mcg/dL () 09/13/17 12:50 Urine Color Yellow (Yellow) 08/08/17 20:15 Urine Turbidity Turbid (Clear) 08/08/17 20:15 Urine pH 8.0 (5.0-7.0) H 08/08/17 20:15 Ur Specific [place] 1.015 (1.003-1.030) 08/08/17 20:15 Urine Protein 100 mg/dl mg/dL (Negative) 08/08/17 20:15 Urine Glucose (UA) Neg mg/dL (Negative) 08/08/17 20:15 Urine Ketones Neg mg/dL (Negative) 08/08/17 20:15 Urine Blood Mod (Negative) 08/08/17 20:15 Urine Nitrite Neg (Negative) 08/08/17 20:15 Urine Bilirubin Neg (Negative) 08/08/17 20:15 Urine Urobilinogen < 2.0 mg/dL (<2.0) 08/08/17 20:15 Ur Leukocyte Esterase Lg (Negative) 08/08/17 20:15 Urine WBC (Auto) 24.0 /HPF (0.0-6.0) H 08/08/17 20:15 Urine RBC (Auto) 3.0 /HPF (0.0-6.0) 08/08/17 20:15 U Epithel Cells (Auto) 3.0 /HPF (0-13.0) 08/08/17 20:15 Urine Bacteria (Auto) 4+ /HPF (Negative) 08/08/17 20:15 Urine Mucus 3+ /HPF 08/08/17 20:15 Fluid Type Peritoneal 08/08/17 18:18 Fluid Color Straw 08/08/17 18:18 Fluid Appearance Clear 08/08/17 18:18 Fluid pH 7.74 08/08/17 18:18 Fluid WBC 4 /mm3 08/08/17 18:18 Fluid RBC 1 /mm3 08/08/17 18:18 Fluid Seg Neutrophils 12 % 08/08/17 18:18 Fluid Lymphocytes 0 % 08/08/17 18:18 Fluid Reactive Lymphs 0 % 08/08/17 18:18 Fluid Monocytes 1 % 08/08/17 18:18 Fluid Eosinophils 0 % 08/08/17 18:18 Fluid Basophils 0 % 08/08/17 18:18 Fluid Glucose 315 mg/dL (40-70) H 08/08/17 18:18 Random Vancomycin 19.5 ug/mL (0-40.0) 08/22/17 03:40 Hep Bs Antigen Non-reactive (Negative) 08/22/17 03:40 Hepatitis C Antibody Non-reactive (NonReactive) 08/22/17 03:40 Miscellaneous Test Flexitest 1 H 09/06/17 09:57 Blood Type O POSITIVE 09/15/17 12:45 Antibody Screen Negative 09/15/17 12:45 VAN Antibody Screen Negative 09/07/17 17:07 Crossmatch See Detail 09/15/17 12:45
--- NOTE | 2017-09-16 10:48 | Progress Note ---
Assessment and Plan Assessment: 1) Sepsis with septic shock: worsening leukocytosis ; new source ? colonic perf. Restared on IV solumedrol 09/13 -CRP= 34 -->30 -->19-->0.1 ->2.8 -procalcitonin=1.3 -->7.6 -->3.9 -->3.2 2) Bowel obstruction / suspect ?gastric perforation ? peritonitis -S/P Exlap, G-tube placement, EGD, abdominal washout and removal of PD -OR findings - bowel obstruction due to entanglement of PD cath, abscess cavity in LUQ and ? suspect perforation of unclear location 3) CA-UTI: chronic ivan exchanged every 4 weeks and ureteral stents in place which are exchanged every 6 months ? urine cultures still pending should r/o MDR bacteria 4) Paraplegia 5) ESRD on PD - no evidence of peritonitis, wbc count 2. 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 6) Recent pancreatitis 7) Penicillin allergy-has taken keflex w/o problems 8) Presumed Surgical wound infection / dehiscence ? 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 11) Sacral stage II 12) Anemia- severe- Hg 6.7 today 13) Colonic perforation: -S/P exlap, transverse colectomy, right sided colostomy and wash out on 09/15 Plan: -stop dapto IV day 8 -continue micafungin day (extended in view of colonic perf) -continue meropenem (extended in view of colonic perf) -monitor leukocytosis -wound care Thank you Dr Cantu for your consultation, will follow up with you. Ramya Lang MD Infectious Diseases Specialist [facility] ([facility] M [phone] O [phone] Subjective Date of service: 09/16/17 Principal diagnosis: respiratory failure, sepsis, shock rectal bleeding Interval history: Pt remains on the vent now on levophed at 2 mcg, off vasopressin on TPN, fentanyl, no fever. Pt went to the OR yesterday. Microbiology: Blood cultures: 08/08 neg 08/12 neg 08/16 neg 08/20 neg 08/29 neg 09/06 neg 09/12 ngtd Urine cultures: 08/08 10-100K skin grace Respiratory cultures: 08/30 tracheal asp MRSA Wound cultures: 08/26 Staph aureus and Kristine 08/28 MRSA, E faecalis, Kristine albicans Stool cultures: Other: 08/08 peritoneal fluid + SWITCH ENGINEER/Diphteroids Current Antimicrobials: dapto 09/10 meropenem 09/09 micafungin 09/11 Previous Antimicrobials: 08/10 levaquin 08/16 vancomycin 08/13 meropenem 08/16 fluconazole Micafungin 08/29 meropenem 08/29 zyvox 09/03 fluconazole 09/03 Objective - Exam Narrative Exam: General appearance: sedated on vent via trach Eyes: anicteric sclerae, moist conjunctivae; no lid-lag; PERRLA HENT: Atraumatic; NGT Neck: Trach in place Lungs: coarse BS moreno CV: RRR, no murmurs Abdomen: soft, midline surgical wound with sutures no drainage. Gtube. colostomy Extremities: + peripheral edema + leg ulcer no drainage Skin: right groin old fem line wound no erythema, no drainage Psych: sedated. Neuro: sedated Lines: right IJ vas cath / Right IJ Nair 08/16 - Constitutional Vitals: Vital Signs Temp Pulse Resp BP Pulse Ox 98.7 F 92 H 24 96/51 100 09/16/17 08:00 09/16/17 10:15 09/16/17 10:15 09/16/17 10:15 09/16/17 10:15 Temperature -Last 24 Hours Temperature 98.7 F Temperature 97.1 F Temperature 97.4 F Temperature 97.4 F Temperature 96.0 F Temperature 98.5 F - Labs CBC & Chem 7: 09/16/17 05:30 09/16/17 05:30 Labs: Abnormal lab results 09/15/17 09/15/17 09/15/17 Range/Units 11:38 12:45 12:45 WBC (4.5-11.0) K/mm3 RBC 1.93 L (3.65-5.03) M/mm3 Hgb 5.7 L* (10.1-14.3) gm/dl Hct 17.1 L* (30.3-42.9) % RDW 20.2 H (13.2-15.2) % Plt Count 125 L (140-440) K/mm3 Seg Neuts % (Manual) 79.0 H (40.0-70.0) % Lymphocytes % (Manual) 8.0 L (13.4-35.0) % Nucleated RBC % (0.0-0.9) % Seg Neutrophils # Man (1.8-7.7) K/mm3 Lymphocytes # (Manual) 0.8 L (1.2-5.4) K/mm3 Monocytes # (Manual) (0.0-0.8) K/mm3 PT 15.4 H (12.2-14.9) Sec. INR 1.16 H (0.87-1.13) Carbon Dioxide (22-30) mmol/L BUN (7-17) mg/dL Creatinine (0.7-1.2) mg/dL Glucose (65-100) mg/dL POC Glucose 253 H (70-105) Calcium (8.4-10.2) mg/dL Phosphorus (2.5-4.5) mg/dL Magnesium (1.7-2.3) mg/dL Total Bilirubin (0.1-1.2) mg/dL AST (5-40) units/L Alkaline Phosphatase (35-129) units/L Total Creatine Kinase (30-135) units/L Total Protein (6.3-8.2) g/dL Albumin (3.9-5) g/dL Crossmatch 09/15/17 09/15/17 09/15/17 Range/Units 12:45 22:25 22:25 WBC 19.6 H (4.5-11.0) K/mm3 RBC 3.32 L (3.65-5.03) M/mm3 Hgb 10.0 L D (10.1-14.3) gm/dl Hct 29.3 L D (30.3-42.9) % RDW 17.0 H (13.2-15.2) % Plt Count 123 L (140-440) K/mm3 Seg Neuts % (Manual) (40.0-70.0) % Lymphocytes % (Manual) 12.0 L (13.4-35.0) % Nucleated RBC % 5.0 H (0.0-0.9) % Seg Neutrophils # Man 11.0 H (1.8-7.7) K/mm3 Lymphocytes # (Manual) (1.2-5.4) K/mm3 Monocytes # (Manual) 1.2 H (0.0-0.8) K/mm3 PT (12.2-14.9) Sec. INR (0.87-1.13) Carbon Dioxide 17 L (22-30) mmol/L BUN 100 H (7-17) mg/dL Creatinine 2.6 H (0.7-1.2) mg/dL Glucose (65-100) mg/dL POC Glucose (70-105) Calcium 8.3 L (8.4-10.2) mg/dL Phosphorus (2.5-4.5) mg/dL Magnesium 1.60 L (1.7-2.3) mg/dL Total Bilirubin 2.80 H (0.1-1.2) mg/dL AST 118 H (5-40) units/L Alkaline Phosphatase 316 H (35-129) units/L Total Creatine Kinase (30-135) units/L Total Protein 4.0 L (6.3-8.2) g/dL Albumin 1.8 L (3.9-5) g/dL Crossmatch See Detail 09/15/17 09/16/17 09/16/17 Range/Units 23:38 01:26 05:30 WBC (4.5-11.0) K/mm3 RBC (3.65-5.03) M/mm3 Hgb (10.1-14.3) gm/dl Hct (30.3-42.9) % RDW (13.2-15.2) % Plt Count (140-440) K/mm3 Seg Neuts % (Manual) (40.0-70.0) % Lymphocytes % (Manual) (13.4-35.0) % Nucleated RBC % (0.0-0.9) % Seg Neutrophils # Man (1.8-7.7) K/mm3 Lymphocytes # (Manual) (1.2-5.4) K/mm3 Monocytes # (Manual) (0.0-0.8) K/mm3 PT (12.2-14.9) Sec. INR (0.87-1.13) Carbon Dioxide 18 L (22-30) mmol/L BUN 109 H (7-17) mg/dL Creatinine 2.5 H (0.7-1.2) mg/dL Glucose 140 H (65-100) mg/dL POC Glucose 58 L 132 H (70-105) Calcium (8.4-10.2) mg/dL Phosphorus 4.80 H (2.5-4.5) mg/dL Magnesium (1.7-2.3) mg/dL Total Bilirubin 2.40 H (0.1-1.2) mg/dL AST 90 H (5-40) units/L Alkaline Phosphatase 298 H (35-129) units/L Total Creatine Kinase 20 L (30-135) units/L Total Protein 4.1 L (6.3-8.2) g/dL Albumin 1.8 L (3.9-5) g/dL Crossmatch 09/16/17 09/16/17 Range/Units 05:30 05:54 WBC 24.6 H (4.5-11.0) K/mm3 RBC 3.22 L (3.65-5.03) M/mm3 Hgb 9.8 L (10.1-14.3) gm/dl Hct 28.6 L (30.3-42.9) % RDW 17.4 H (13.2-15.2) % Plt Count 127 L (140-440) K/mm3 Seg Neuts % (Manual) (40.0-70.0) % Lymphocytes % (Manual) (13.4-35.0) % Nucleated RBC % (0.0-0.9) % Seg Neutrophils # Man (1.8-7.7) K/mm3 Lymphocytes # (Manual) (1.2-5.4) K/mm3 Monocytes # (Manual) (0.0-0.8) K/mm3 PT (12.2-14.9) Sec. INR (0.87-1.13) Carbon Dioxide (22-30) mmol/L BUN (7-17) mg/dL Creatinine (0.7-1.2) mg/dL Glucose (65-100) mg/dL POC Glucose 154 H (70-105) Calcium (8.4-10.2) mg/dL Phosphorus (2.5-4.5) mg/dL Magnesium (1.7-2.3) mg/dL Total Bilirubin (0.1-1.2) mg/dL AST (5-40) units/L Alkaline Phosphatase (35-129) units/L Total Creatine Kinase (30-135) units/L Total Protein (6.3-8.2) g/dL Albumin (3.9-5) g/dL Crossmatch
--- NOTE | 2017-09-16 14:13 | Progress Note ---
Assessment and Plan 62 y.o. F s/p ex lap, transverse colon resection, colostomy creation, and s/p ex lap, abdominal wash out and abdominal wall closure after wound dehiscence 2 weeks s/p ex lap for gastric perforation and sbo. s/p transverse colon resection with ostomy resection for perforated colon: ostomy patent. Wound care nurse consulted for colostomy care. Monitor MERVIN output - becoming more serous sanginous. Continue G tube to gravity. Outputs to be recorded on paper in room for accurate outputs. Pt requiring levo. Vaso off. s/p Antonieta placement -Leukocytosis likely reactive from surgery with reaction from perf. bowel exposure since it was walled off. - ID following - merrem, mycamin, cubicin -Rec. wean steriods Heme- rec heme consult has pt may have a coagulate that is not apparent with INR /PT or PTT changes. 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 VDRF: s/p trach. Prev Gastric perf: Sealed. In light of recent surgery, keep G tube to gravity CKD- HD per renal Nutrition: TPN at 77,. DVT proph: scds GI: PPI. - Patient Problems (1) Peritonitis (acute) generalized Current Visit: Yes Status: Acute Subjective Narrative: Vasopressin weaned off overnight. Levo now 10 but requirements increasing as she is on HD. During OR yesterday she received 3 units PRBC. She is resting comfortably. 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 G tube minimal NG minimal Objective Vital Signs - 12hr 09/16/17 09/16/17 09/16/17 02:10 02:16 02:30 Temperature Pulse Rate 96 H 96 H Pulse Rate [ Anterior Bilateral Throughout] Pulse Rate [ 103 H Anterior Bilateral Upper Lobe] Pulse Rate [ Apical] Respiratory 16 16 Rate Respiratory Rate [Anterior Bilateral Throughout] Respiratory 20 Rate [Anterior Bilateral Upper Lobe] Blood Pressure O2 Sat by Pulse 100 99 Oximetry O2 Sat by Pulse 100 Oximetry [ Assessment] 09/16/17 09/16/17 09/16/17 02:46 03:00 03:08 Temperature Pulse Rate 97 H 96 H 97 H Pulse Rate [ Anterior Bilateral Throughout] Pulse Rate [ Anterior Bilateral Upper Lobe] Pulse Rate [ Apical] Respiratory 17 19 Rate Respiratory Rate [Anterior Bilateral Throughout] Respiratory Rate [Anterior Bilateral Upper Lobe] Blood Pressure 122/65 O2 Sat by Pulse 100 100 100 Oximetry O2 Sat by Pulse Oximetry [ Assessment] 09/16/17 09/16/17 09/16/17 03:16 03:30 03:46 Temperature Pulse Rate 101 H 99 H 97 H Pulse Rate [ Anterior Bilateral Throughout] Pulse Rate [ Anterior Bilateral Upper Lobe] Pulse Rate [ Apical] Respiratory 16 13 14 Rate Respiratory Rate [Anterior Bilateral Throughout] Respiratory Rate [Anterior Bilateral Upper Lobe] Blood Pressure O2 Sat by Pulse 100 100 100 Oximetry O2 Sat by Pulse Oximetry [ Assessment] 09/16/17 09/16/17 09/16/17 04:00 04:16 04:30 Temperature 97.1 F L Pulse Rate 100 H 91 H 99 H Pulse Rate [ Anterior Bilateral Throughout] Pulse Rate [ Anterior Bilateral Upper Lobe] Pulse Rate [ 92 H Apical] Respiratory 19 22 15 Rate Respiratory Rate [Anterior Bilateral Throughout] Respiratory Rate [Anterior Bilateral Upper Lobe] Blood Pressure O2 Sat by Pulse 100 100 99 Oximetry O2 Sat by Pulse Oximetry [ Assessment] 09/16/17 09/16/17 09/16/17 04:46 05:00 05:16 Temperature Pulse Rate 95 H 98 H 97 H Pulse Rate [ Anterior Bilateral Throughout] Pulse Rate [ Anterior Bilateral Upper Lobe] Pulse Rate [ Apical] Respiratory 16 16 16 Rate Respiratory Rate [Anterior Bilateral Throughout] Respiratory Rate [Anterior Bilateral Upper Lobe] Blood Pressure 109/50 109/50 O2 Sat by Pulse 99 Oximetry O2 Sat by Pulse Oximetry [ Assessment] 09/16/17 09/16/17 09/16/17 05:30 05:46 06:00 Temperature Pulse Rate 98 H 93 H 94 H Pulse Rate [ Anterior Bilateral Throughout] Pulse Rate [ Anterior Bilateral Upper Lobe] Pulse Rate [ Apical] Respiratory 16 18 21 Rate Respiratory Rate [Anterior Bilateral Throughout] Respiratory Rate [Anterior Bilateral Upper Lobe] Blood Pressure 109/50 91/55 91/55 O2 Sat by Pulse Oximetry O2 Sat by Pulse Oximetry [ Assessment] 09/16/17 09/16/17 09/16/17 06:16 06:30 06:46 Temperature Pulse Rate 94 H 91 H 91 H Pulse Rate [ Anterior Bilateral Throughout] Pulse Rate [ Anterior Bilateral Upper Lobe] Pulse Rate [ Apical] Respiratory 20 20 21 Rate Respiratory Rate [Anterior Bilateral Throughout] Respiratory Rate [Anterior Bilateral Upper Lobe] Blood Pressure 90/52 105/62 110/57 O2 Sat by Pulse 99 100 Oximetry O2 Sat by Pulse Oximetry [ Assessment] 10/09/16/17 09/16/17 07:00 07:16 07:30 Temperature Pulse Rate 91 H 93 H 99 H Pulse Rate [ Anterior Bilateral Throughout] Pulse Rate [ Anterior Bilateral Upper Lobe] Pulse Rate [ Apical] Respiratory 16 22 19 Rate Respiratory Rate [Anterior Bilateral Throughout] Respiratory Rate [Anterior Bilateral Upper Lobe] Blood Pressure 105/62 118/77 118/77 O2 Sat by Pulse 95 98 100 Oximetry O2 Sat by Pulse Oximetry [ Assessment] 09/16/17 09/16/17 09/16/17 07:46 08:00 08:10 Temperature 98.7 F Pulse Rate 94 H 100 H Pulse Rate [ Anterior Bilateral Throughout] Pulse Rate [ Anterior Bilateral Upper Lobe] Pulse Rate [ 94 H Apical] Respiratory 21 15 21 Rate Respiratory Rate [Anterior Bilateral Throughout] Respiratory Rate [Anterior Bilateral Upper Lobe] Blood Pressure 122/94 109/64 O2 Sat by Pulse 98 99 99 Oximetry O2 Sat by Pulse Oximetry [ Assessment] 09/16/17 09/16/17 09/16/17 08:16 08:30 08:46 Temperature Pulse Rate 94 H 95 H 95 H Pulse Rate [ Anterior Bilateral Throughout] Pulse Rate [ Anterior Bilateral Upper Lobe] Pulse Rate [ Apical] Respiratory 20 19 20 Rate Respiratory Rate [Anterior Bilateral Throughout] Respiratory Rate [Anterior Bilateral Upper Lobe] Blood Pressure 103/50 103/50 96/51 O2 Sat by Pulse 100 99 Oximetry O2 Sat by Pulse Oximetry [ Assessment] 09/16/17 09/16/17 09/16/17 09:00 09:15 09:30 Temperature Pulse Rate 94 H 93 H 94 H Pulse Rate [ Anterior Bilateral Throughout] Pulse Rate [ Anterior Bilateral Upper Lobe] Pulse Rate [ Apical] Respiratory 20 21 20 Rate Respiratory Rate [Anterior Bilateral Throughout] Respiratory Rate [Anterior Bilateral Upper Lobe] Blood Pressure 101/53 96/51 97/54 O2 Sat by Pulse 100 100 Oximetry O2 Sat by Pulse Oximetry [ Assessment] 09/16/17 09/16/17 09/16/17 09:45 09:50 10:00 Temperature Pulse Rate 93 H 93 H 105 H Pulse Rate [ 94 H Anterior Bilateral Throughout] Pulse Rate [ Anterior Bilateral Upper Lobe] Pulse Rate [ Apical] Respiratory 11 L 13 Rate Respiratory 22 Rate [Anterior Bilateral Throughout] Respiratory Rate [Anterior Bilateral Upper Lobe] Blood Pressure 93/60 93/60 52/27 O2 Sat by Pulse 96 101 H 97 Oximetry O2 Sat by Pulse Oximetry [ Assessment] 09/16/17 09/16/17 09/16/17 10:15 10:16 10:30 Temperature Pulse Rate 92 H 92 H 95 H Pulse Rate [ 92 H Anterior Bilateral Throughout] Pulse Rate [ Anterior Bilateral Upper Lobe] Pulse Rate [ Apical] Respiratory 25 H 15 Rate Respiratory 24 Rate [Anterior Bilateral Throughout] Respiratory Rate [Anterior Bilateral Upper Lobe] Blood Pressure 96/51 96/51 94/54 O2 Sat by Pulse 100 100 100 Oximetry O2 Sat by Pulse 100 Oximetry [ Assessment] 09/16/17 09/16/17 09/16/17 10:46 10:55 11:00 Temperature Pulse Rate 93 H 75 94 H Pulse Rate [ Anterior Bilateral Throughout] Pulse Rate [ Anterior Bilateral Upper Lobe] Pulse Rate [ Apical] Respiratory 23 22 Rate Respiratory Rate [Anterior Bilateral Throughout] Respiratory Rate [Anterior Bilateral Upper Lobe] Blood Pressure 85/54 91/52 O2 Sat by Pulse 100 Oximetry O2 Sat by Pulse Oximetry [ Assessment] 09/16/17 09/16/17 09/16/17 11:15 11:30 11:46 Temperature Pulse Rate 96 H 94 H 96 H Pulse Rate [ Anterior Bilateral Throughout] Pulse Rate [ Anterior Bilateral Upper Lobe] Pulse Rate [ Apical] Respiratory 23 21 27 H Rate Respiratory Rate [Anterior Bilateral Throughout] Respiratory Rate [Anterior Bilateral Upper Lobe] Blood Pressure 95/55 94/48 106/40 O2 Sat by Pulse 100 Oximetry O2 Sat by Pulse Oximetry [ Assessment] 09/16/17 09/16/17 09/16/17 12:00 12:01 12:15 Temperature 98.6 F Pulse Rate 98 H 95 H 97 H Pulse Rate [ Anterior Bilateral Throughout] Pulse Rate [ Anterior Bilateral Upper Lobe] Pulse Rate [ Apical] Respiratory 16 Rate Respiratory Rate [Anterior Bilateral Throughout] Respiratory Rate [Anterior Bilateral Upper Lobe] Blood Pressure 88/49 88/49 90/53 O2 Sat by Pulse 99 98 Oximetry O2 Sat by Pulse Oximetry [ Assessment] 09/16/17 09/16/17 09/16/17 12:16 12:30 12:45 Temperature Pulse Rate 97 H 101 H 100 H Pulse Rate [ Anterior Bilateral Throughout] Pulse Rate [ Anterior Bilateral Upper Lobe] Pulse Rate [ Apical] Respiratory 24 25 H Rate Respiratory Rate [Anterior Bilateral Throughout] Respiratory Rate [Anterior Bilateral Upper Lobe] Blood Pressure 90/53 88/52 92/55 O2 Sat by Pulse 94 98 Oximetry O2 Sat by Pulse Oximetry [ Assessment] 09/16/17 09/16/17 09/16/17 12:46 13:00 13:15 Temperature Pulse Rate 107 H 109 H 110 H Pulse Rate [ Anterior Bilateral Throughout] Pulse Rate [ Anterior Bilateral Upper Lobe] Pulse Rate [ Apical] Respiratory 26 H 26 H Rate Respiratory Rate [Anterior Bilateral Throughout] Respiratory Rate [Anterior Bilateral Upper Lobe] Blood Pressure 92/55 91/42 104/68 O2 Sat by Pulse 96 88 Oximetry O2 Sat by Pulse Oximetry [ Assessment] 09/16/17 09/16/17 09/16/17 13:16 13:30 13:45 Temperature Pulse Rate 113 H 108 H 112 H Pulse Rate [ Anterior Bilateral Throughout] Pulse Rate [ Anterior Bilateral Upper Lobe] Pulse Rate [ Apical] Respiratory 26 H 25 H Rate Respiratory Rate [Anterior Bilateral Throughout] Respiratory Rate [Anterior Bilateral Upper Lobe] Blood Pressure 91/52 84/50 93/64 O2 Sat by Pulse 98 Oximetry O2 Sat by Pulse Oximetry [ Assessment] 09/16/17 14:00 Temperature Pulse Rate 111 H Pulse Rate [ Anterior Bilateral Throughout] Pulse Rate [ Anterior Bilateral Upper Lobe] Pulse Rate [ Apical] Respiratory Rate Respiratory Rate [Anterior Bilateral Throughout] Respiratory Rate [Anterior Bilateral Upper Lobe] Blood Pressure 95/73 O2 Sat by Pulse Oximetry O2 Sat by Pulse Oximetry [ Assessment] - General physical appearance no pain, chronically ill, obese - Neck other (trach ) - Respiratory normal expansion, normal respiratory effort, other (vent) - Abdomen soft, other (dressing in place. dressing was not removed since she is having HD. MERVIN and G tube in place. Ostomy: bloody/fecal contents. no air. violacious mucosa.dressing cdi. ) - Integumentary no rash, other (+weeping on extremities ) - Neurologic other (no respond to commands) - Musculoskeletal other (+2-3 upper and lower extremities edema ) - Labs 09/16/17 05:30 09/16/17 05:30 Diabetes panel 09/15/17 09/16/17 Range/Units 22:25 05:30 Sodium 137 138 (137-145) mmol/L Potassium 4.7 5.0 (3.6-5.0) mmol/L Chloride 100.3 100.6 (98-107) mmol/L Carbon Dioxide 17 L 18 L (22-30) mmol/L BUN 100 H 109 H (7-17) mg/dL Creatinine 2.6 H 2.5 H (0.7-1.2) mg/dL Glucose 66 140 H (65-100) mg/dL Calcium 8.3 L 8.5 (8.4-10.2) mg/dL AST 118 H 90 H (5-40) units/L ALT 42 45 (7-56) units/L Alkaline Phosphatase 316 H 298 H (35-129) units/L Total Protein 4.0 L 4.1 L (6.3-8.2) g/dL Albumin 1.8 L 1.8 L (3.9-5) g/dL Calcium panel 09/15/17 09/16/17 Range/Units 22:25 05:30 Calcium 8.3 L 8.5 (8.4-10.2) mg/dL Phosphorus 4.40 D 4.80 H (2.5-4.5) mg/dL Albumin 1.8 L 1.8 L (3.9-5) g/dL Pituitary panel 09/15/17 09/16/17 Range/Units 22:25 05:30 Sodium 137 138 (137-145) mmol/L Potassium 4.7 5.0 (3.6-5.0) mmol/L Chloride 100.3 100.6 (98-107) mmol/L Carbon Dioxide 17 L 18 L (22-30) mmol/L BUN 100 H 109 H (7-17) mg/dL Creatinine 2.6 H 2.5 H (0.7-1.2) mg/dL Glucose 66 140 H (65-100) mg/dL Calcium 8.3 L 8.5 (8.4-10.2) mg/dL Adrenal panel 09/15/17 09/16/17 Range/Units 22:25 05:30 Sodium 137 138 (137-145) mmol/L Potassium 4.7 5.0 (3.6-5.0) mmol/L Chloride 100.3 100.6 (98-107) mmol/L Carbon Dioxide 17 L 18 L (22-30) mmol/L BUN 100 H 109 H (7-17) mg/dL Creatinine 2.6 H 2.5 H (0.7-1.2) mg/dL Glucose 66 140 H (65-100) mg/dL Calcium 8.3 L 8.5 (8.4-10.2) mg/dL Total Bilirubin 2.80 H 2.40 H (0.1-1.2) mg/dL AST 118 H 90 H (5-40) units/L ALT 42 45 (7-56) units/L Alkaline Phosphatase 316 H 298 H (35-129) units/L Total Protein 4.0 L 4.1 L (6.3-8.2) g/dL Albumin 1.8 L 1.8 L (3.9-5) g/dL
[2017-09-16] MEDS: MERREM 1,000 MG in NACL 0.9% 100 ML IV SCH (16:33)
[2017-09-16] MEDS: CUBICIN IV SCH (17:47)
[2017-09-16] MEDS: NACL 0.9% IV SCH (17:47)
[2017-09-16] MEDS ORDERED: PROCRIT SUB-Q ONE (20:00)
[2017-09-16] MEDS ORDERED: INTRALIPID 20% 250 ML IV SCH (20:00)
[2017-09-16] MEDS ORDERED: TPN ADULT 1,800 ML IV SCH (20:00)
[2017-09-16] MEDS: DILAUDID IV PRN (20:10)
[2017-09-16] MEDS ORDERED: LEVOPHED DRIP 4 MG/NS 250 ML 0 MG/0 ML BAG IV ONE (21:36)
[2017-09-16] MEDS: LEVOPHED 8 MG in NACL 0.9% 250ML 242 ML IV SCH (22:12)
--- NOTE | 2017-09-16 23:07 | Progress Note ---
Assessment and Plan - Patient Problems (1) Leukocytosis Current Visit: Yes Status: Acute Qualifiers: Leukocytosis type: L Plan to address problem: See notes above. make sure that PD access is clean also. see notes. Probably infection from the infected PD catheter. improving. back up again. up/down continue to monitor. it continuos to rise. still high. improved. (2) Anemia Current Visit: Yes Status: Acute Qualifiers: Anemia type: A Iron deficiency anemia type: I Vitamin B12 deficiency anemia type: V Folate deficiency anemia type: F Bone marrow failure anemia type: B Hemolytic anemia type: H Other causes of anemia: O Chronic kidney disease stage: C Plan to address problem: see notes , monitor labs,. see notes above. continue to monitor labs with you. blood transfusion. S/P replacement transfusion. fair. s/p 1unit transfusion. see notes. Still at 7.4 6.9, scheduled for replacement. Fairly stable at this time. (3) Acute respiratory failure Current Visit: Yes Status: Acute Qualifiers: Respiratory failure complication: R Plan to address problem: follow pulm. Subjective Date of service: 09/16/17 Principal diagnosis: respiratory failure, sepsis, shock rectal bleeding Interval history: Patient seen today/examined, labs reviewed, case d/w she, and family.complaints of abdominal pain. Patient resting in bed in the ICU, post vascular procedure. labs reviewed, Reactive thrombocytosis, anemia of CD, leukocytosis from infection vs inflamatory process. Patient seen/examined, in bed in the ICU, on the vent post surgery.Labs reviewed , notes reviewed. will continue to monitor labs/patient with you. Replacement transfusion, if /when indicated. patient seen/examined, SBP75, on pressors., lethargic, on the vent, labs reviewed, wbc 39,000 Patient seen/examined, case reviewed, d/w her sister at the bed side. Patient seen/examined, labs reviewed, notes reviewed. severe septic shock from infected PD catheter The high wbc is all infection related. H?H low, and may get replacement transfusion with the next HD. Prognosis remain quite poor. Patient seen/examined, extubated, now on V Mask. labs reviewed. patient seen/examined, resting in bed, still some what lethargic . labs reviewed. Patient seen/examined, resting in bed., some difficulty with breathing./ lethargic. patient seen/examined, resting in bed, looked much better labs reviewed, and fair over all. Patient seen/examined, resting in bed, labs reviewed, case d/w her. Patient seen/examined, resting in bed on BIPAP., labs reviewed. patient seen/examined, resting in bed, on Bipap.labs reviewed, fairly stable. Patient seen today, resting in bed, labs reviewed, H/H low, and transfusion already ordered. Patient seen/examined, resting in bed, transferred back to the unit, due to resp failure. She is now on venting mask. had blood replacement done. Patient seen/examined in the ICU.labs reviewed. patient intubated this am. patient resting in bed.no new issues. Patient seen/examined in the ICU, on vent,Not readily responsive. patient seen, resting in bed, no new cbc ready.will order for today. Patient seen, resting in vent, labs reviewed.notes reviewed also. patient seen/examined, resting on vent, had HD yesterday, and today., labs reviewed. Patient seen, resting in bed, labs reviewed.fairly stable labs, except the wbc. Patient seen/examined, rtesting in bed on the vent.Labs reviewed, wbc still elevated, Hgb dropped slightly. Patient seen/examined, labs reviewed, hgb 7.3, if 7.0 or less, will replace .unless otherwise indicated. Patient seen/examined, alert but lethargic.sedation drip turned down.she is s/p 1unit PRBC replacement with HD today. Patient seen/examined, labs reviewed, hgb still not quite enough at 7.5, perhaps with the next HD,can use 1-2 units. Patient seen/examined, resting in bed, trached, labs re viewed. Patient seen/examined, resting in bed, responds to name calling, SBP99, labs reviewed, Hgb 6.9, PRBC replacement ordered by primary. Patient seen/examined, in bed/trach, NGT., alert/lethargic. Objective - Constitutional Vitals: Vital Signs - 12hr 09/16/17 09/16/17 09/16/17 11:15 11:30 11:45 Temperature 98.6 F Pulse Rate 96 H 94 H 96 H Pulse Rate [ Anterior Bilateral Throughout] Pulse Rate [ Apical] Respiratory 23 21 20 Rate Respiratory Rate [Anterior Bilateral Throughout] Blood Pressure 95/55 94/48 106/40 O2 Sat by Pulse 100 Oximetry O2 Sat by Pulse 99 Oximetry [ Anterior Bilateral Throughout] 09/16/17 09/16/17 09/16/17 11:46 12:00 12:01 Temperature 98.6 F Pulse Rate 96 H 98 H 95 H Pulse Rate [ Anterior Bilateral Throughout] Pulse Rate [ Apical] Respiratory 27 H 16 Rate Respiratory Rate [Anterior Bilateral Throughout] Blood Pressure 106/40 88/49 88/49 O2 Sat by Pulse 99 98 Oximetry O2 Sat by Pulse Oximetry [ Anterior Bilateral Throughout] 09/16/17 09/16/17 09/16/17 12:05 12:15 12:16 Temperature Pulse Rate 97 H 97 H Pulse Rate [ Anterior Bilateral Throughout] Pulse Rate [ 88 Apical] Respiratory 21 24 Rate Respiratory Rate [Anterior Bilateral Throughout] Blood Pressure 90/53 90/53 O2 Sat by Pulse 100 94 Oximetry O2 Sat by Pulse Oximetry [ Anterior Bilateral Throughout] 09/16/17 09/16/17 09/16/17 12:30 12:45 12:46 Temperature Pulse Rate 101 H 100 H 107 H Pulse Rate [ Anterior Bilateral Throughout] Pulse Rate [ Apical] Respiratory 25 H 26 H Rate Respiratory Rate [Anterior Bilateral Throughout] Blood Pressure 88/52 92/55 92/55 O2 Sat by Pulse 98 96 Oximetry O2 Sat by Pulse Oximetry [ Anterior Bilateral Throughout] 09/16/17 09/16/17 09/16/17 13:00 13:15 13:16 Temperature Pulse Rate 109 H 110 H 113 H Pulse Rate [ Anterior Bilateral Throughout] Pulse Rate [ Apical] Respiratory 26 H 26 H Rate Respiratory Rate [Anterior Bilateral Throughout] Blood Pressure 91/42 104/68 91/52 O2 Sat by Pulse 88 Oximetry O2 Sat by Pulse Oximetry [ Anterior Bilateral Throughout] 09/16/17 09/16/17 09/16/17 13:30 13:45 13:46 Temperature Pulse Rate 108 H 112 H 112 H Pulse Rate [ Anterior Bilateral Throughout] Pulse Rate [ Apical] Respiratory 25 H 25 H Rate Respiratory Rate [Anterior Bilateral Throughout] Blood Pressure 84/50 93/64 93/64 O2 Sat by Pulse 98 97 Oximetry O2 Sat by Pulse Oximetry [ Anterior Bilateral Throughout] 09/16/17 09/16/17 09/16/17 14:00 14:15 14:16 Temperature Pulse Rate 112 H 111 H 109 H Pulse Rate [ Anterior Bilateral Throughout] Pulse Rate [ Apical] Respiratory 25 H 27 H Rate Respiratory Rate [Anterior Bilateral Throughout] Blood Pressure 95/73 91/61 91/61 O2 Sat by Pulse 97 96 Oximetry O2 Sat by Pulse Oximetry [ Anterior Bilateral Throughout] 09/16/17 09/16/17 09/16/17 14:30 14:45 15:00 Temperature Pulse Rate 112 H 109 H 118 H Pulse Rate [ Anterior Bilateral Throughout] Pulse Rate [ Apical] Respiratory 22 25 H 22 Rate Respiratory Rate [Anterior Bilateral Throughout] Blood Pressure 101/58 80/55 102/77 O2 Sat by Pulse 88 96 91 Oximetry O2 Sat by Pulse Oximetry [ Anterior Bilateral Throughout] 09/16/17 09/16/17 09/16/17 15:15 15:16 15:19 Temperature Pulse Rate 104 H 106 H 104 H Pulse Rate [ 112 H Anterior Bilateral Throughout] Pulse Rate [ Apical] Respiratory 23 Rate Respiratory 26 H Rate [Anterior Bilateral Throughout] Blood Pressure 115/54 89/59 90/55 O2 Sat by Pulse 99 Oximetry O2 Sat by Pulse Oximetry [ Anterior Bilateral Throughout] 09/16/17 09/16/17 09/16/17 15:30 15:36 15:40 Temperature 98.6 F Pulse Rate 109 H 110 H Pulse Rate [ 102 H Anterior Bilateral Throughout] Pulse Rate [ Apical] Respiratory 20 24 Rate Respiratory 21 Rate [Anterior Bilateral Throughout] Blood Pressure 88/55 103/52 O2 Sat by Pulse Oximetry O2 Sat by Pulse 99 Oximetry [ Anterior Bilateral Throughout] 09/16/17 09/16/17 09/16/17 15:46 16:00 16:16 Temperature 98.6 F Pulse Rate 108 H 109 H 109 H Pulse Rate [ Anterior Bilateral Throughout] Pulse Rate [ 101 H Apical] Respiratory 22 23 23 Rate Respiratory Rate [Anterior Bilateral Throughout] Blood Pressure 87/67 96/56 90/52 O2 Sat by Pulse 99 97 94 Oximetry O2 Sat by Pulse Oximetry [ Anterior Bilateral Throughout] 09/16/17 09/16/17 09/16/17 16:30 16:46 17:00 Temperature Pulse Rate 110 H 106 H 109 H Pulse Rate [ Anterior Bilateral Throughout] Pulse Rate [ Apical] Respiratory 22 24 25 H Rate Respiratory Rate [Anterior Bilateral Throughout] Blood Pressure 110/71 104/50 83/53 O2 Sat by Pulse 94 98 Oximetry O2 Sat by Pulse Oximetry [ Anterior Bilateral Throughout] 09/16/17 09/16/17 09/16/17 17:16 17:30 17:46 Temperature Pulse Rate 101 H 103 H 102 H Pulse Rate [ Anterior Bilateral Throughout] Pulse Rate [ Apical] Respiratory 22 19 20 Rate Respiratory Rate [Anterior Bilateral Throughout] Blood Pressure 91/52 82/44 97/56 O2 Sat by Pulse 100 Oximetry O2 Sat by Pulse Oximetry [ Anterior Bilateral Throughout] 09/16/17 09/16/17 09/16/17 18:00 18:16 18:30 Temperature Pulse Rate 104 H 102 H 101 H Pulse Rate [ Anterior Bilateral Throughout] Pulse Rate [ Apical] Respiratory 22 20 21 Rate Respiratory Rate [Anterior Bilateral Throughout] Blood Pressure 107/59 109/52 89/53 O2 Sat by Pulse 100 100 Oximetry O2 Sat by Pulse Oximetry [ Anterior Bilateral Throughout] 09/16/17 09/16/17 09/16/17 18:46 19:00 19:16 Temperature Pulse Rate 99 H 101 H 97 H Pulse Rate [ Anterior Bilateral Throughout] Pulse Rate [ Apical] Respiratory 20 21 22 Rate Respiratory Rate [Anterior Bilateral Throughout] Blood Pressure 104/53 100/50 90/53 O2 Sat by Pulse 100 100 100 Oximetry O2 Sat by Pulse Oximetry [ Anterior Bilateral Throughout] 09/16/17 09/16/17 09/16/17 19:30 19:36 19:46 Temperature 99.1 F Pulse Rate 99 H 98 H Pulse Rate [ Anterior Bilateral Throughout] Pulse Rate [ Apical] Respiratory 21 23 Rate Respiratory Rate [Anterior Bilateral Throughout] Blood Pressure 87/49 90/53 O2 Sat by Pulse 100 100 Oximetry O2 Sat by Pulse Oximetry [ Anterior Bilateral Throughout] 09/16/17 09/16/17 09/16/17 20:00 20:16 20:30 Temperature Pulse Rate 101 H 107 H 101 H Pulse Rate [ 107 H Anterior Bilateral Throughout] Pulse Rate [ 98 H Apical] Respiratory 21 17 20 Rate Respiratory 20 Rate [Anterior Bilateral Throughout] Blood Pressure 89/48 95/50 106/46 O2 Sat by Pulse 100 100 100 Oximetry O2 Sat by Pulse Oximetry [ Anterior Bilateral Throughout] 09/16/17 09/16/17 09/16/17 20:46 21:00 21:16 Temperature Pulse Rate 95 H 97 H 96 H Pulse Rate [ Anterior Bilateral Throughout] Pulse Rate [ Apical] Respiratory 21 18 20 Rate Respiratory Rate [Anterior Bilateral Throughout] Blood Pressure 106/46 85/46 85/46 O2 Sat by Pulse 100 100 100 Oximetry O2 Sat by Pulse Oximetry [ Anterior Bilateral Throughout] 09/16/17 09/16/17 09/16/17 21:30 21:46 22:00 Temperature Pulse Rate 98 H 95 H 95 H Pulse Rate [ Anterior Bilateral Throughout] Pulse Rate [ Apical] Respiratory 21 20 21 Rate Respiratory Rate [Anterior Bilateral Throughout] Blood Pressure 97/49 97/49 102/49 O2 Sat by Pulse 100 100 100 Oximetry O2 Sat by Pulse Oximetry [ Anterior Bilateral Throughout] 09/16/17 09/16/17 09/16/17 22:16 22:30 22:42 Temperature 99.4 F Pulse Rate 94 H 103 H Pulse Rate [ Anterior Bilateral Throughout] Pulse Rate [ Apical] Respiratory 19 16 Rate Respiratory Rate [Anterior Bilateral Throughout] Blood Pressure 102/49 97/55 O2 Sat by Pulse 100 100 Oximetry O2 Sat by Pulse Oximetry [ Anterior Bilateral Throughout] 09/16/17 22:46 Temperature Pulse Rate 96 H Pulse Rate [ Anterior Bilateral Throughout] Pulse Rate [ Apical] Respiratory 20 Rate Respiratory Rate [Anterior Bilateral Throughout] Blood Pressure 97/55 O2 Sat by Pulse 100 Oximetry O2 Sat by Pulse Oximetry [ Anterior Bilateral Throughout] General appearance: Present: severe distress - EENT Eyes: PERRL, EOM intact ENT: hearing intact, clear oral mucosa Ears: bilateral: normal - Neck Neck: supple, normal ROM - Respiratory Respiratory: bilateral: diminished - Breasts Breasts: deferred - Cardiovascular Rhythm: regular Heart Sounds: Present: S1 & S2. Absent: gallop, rub Extremities: pulses intact, No edema, normal color, Full ROM - Gastrointestinal General gastrointestinal: Present: soft, non-tender, non-distended, normal bowel sounds Rectal Exam: deferred - Genitourinary Female genitourinary: deferred - Integumentary Integumentary: clear, warm, dry - Musculoskeletal Musculoskeletal: 1, strength equal bilaterally - Neurologic Neurologic: moves all extremities - Psychiatric Psychiatric: memory intact, appropriate mood/affect, intact judgment & insight - Labs CBC & Chem 7: 09/16/17 05:30 09/16/17 05:30 Labs: Abnormal lab results 09/15/17 09/15/17 09/15/17 Range/Units 12:45 22:25 22:25 WBC (4.5-11.0) K/mm3 RBC (3.65-5.03) M/mm3 Hgb (10.1-14.3) gm/dl Hct (30.3-42.9) % RDW (13.2-15.2) % Plt Count (140-440) K/mm3 Lymphocytes % (Manual) 12.0 L (13.4-35.0) % Nucleated RBC % 5.0 H (0.0-0.9) % Seg Neutrophils # Man 11.0 H (1.8-7.7) K/mm3 Monocytes # (Manual) 1.2 H (0.0-0.8) K/mm3 Carbon Dioxide 17 L (22-30) mmol/L BUN 100 H (7-17) mg/dL Creatinine 2.6 H (0.7-1.2) mg/dL Glucose (65-100) mg/dL POC Glucose (70-105) Calcium 8.3 L (8.4-10.2) mg/dL Phosphorus (2.5-4.5) mg/dL Magnesium 1.60 L (1.7-2.3) mg/dL Total Bilirubin 2.80 H (0.1-1.2) mg/dL AST 118 H (5-40) units/L Alkaline Phosphatase 316 H (35-129) units/L Total Creatine Kinase (30-135) units/L Total Protein 4.0 L (6.3-8.2) g/dL Albumin 1.8 L (3.9-5) g/dL Crossmatch See Detail 09/15/17 09/16/17 09/16/17 Range/Units 23:38 01:26 05:30 WBC (4.5-11.0) K/mm3 RBC (3.65-5.03) M/mm3 Hgb (10.1-14.3) gm/dl Hct (30.3-42.9) % RDW (13.2-15.2) % Plt Count (140-440) K/mm3 Lymphocytes % (Manual) (13.4-35.0) % Nucleated RBC % (0.0-0.9) % Seg Neutrophils # Man (1.8-7.7) K/mm3 Monocytes # (Manual) (0.0-0.8) K/mm3 Carbon Dioxide 18 L (22-30) mmol/L BUN 109 H (7-17) mg/dL Creatinine 2.5 H (0.7-1.2) mg/dL Glucose 140 H (65-100) mg/dL POC Glucose 58 L 132 H (70-105) Calcium (8.4-10.2) mg/dL Phosphorus 4.80 H (2.5-4.5) mg/dL Magnesium (1.7-2.3) mg/dL Total Bilirubin 2.40 H (0.1-1.2) mg/dL AST 90 H (5-40) units/L Alkaline Phosphatase 298 H (35-129) units/L Total Creatine Kinase 20 L (30-135) units/L Total Protein 4.1 L (6.3-8.2) g/dL Albumin 1.8 L (3.9-5) g/dL Crossmatch 09/16/17 09/16/17 Range/Units 05:30 05:54 WBC 24.6 H (4.5-11.0) K/mm3 RBC 3.22 L (3.65-5.03) M/mm3 Hgb 9.8 L (10.1-14.3) gm/dl Hct 28.6 L (30.3-42.9) % RDW 17.4 H (13.2-15.2) % Plt Count 127 L (140-440) K/mm3 Lymphocytes % (Manual) (13.4-35.0) % Nucleated RBC % (0.0-0.9) % Seg Neutrophils # Man (1.8-7.7) K/mm3 Monocytes # (Manual) (0.0-0.8) K/mm3 Carbon Dioxide (22-30) mmol/L BUN (7-17) mg/dL Creatinine (0.7-1.2) mg/dL Glucose (65-100) mg/dL POC Glucose 154 H (70-105) Calcium (8.4-10.2) mg/dL Phosphorus (2.5-4.5) mg/dL Magnesium (1.7-2.3) mg/dL Total Bilirubin (0.1-1.2) mg/dL AST (5-40) units/L Alkaline Phosphatase (35-129) units/L Total Creatine Kinase (30-135) units/L Total Protein (6.3-8.2) g/dL Albumin (3.9-5) g/dL Crossmatch
[2017-09-17] MEDS: DUONEB *Not for PRN Use IH SCH ×5 (02:53→20:10)
[2017-09-17] MEDS: NOVOLOG SUB-Q SCH ×3 (05:31→17:56)
[2017-09-17] MEDS ORDERED: NACL 0.9% 100 ML IV PRN (07:51)
--- NOTE | 2017-09-17 07:56 | Progress Note ---
Assessment and Plan - Patient Problems (1) ESRD (end stage renal disease) on dialysis Current Visit: Yes Status: Acute Plan to address problem: Continue HD on MWF and Isolated UF on TTS as tolerated. UF today. Patient is on TPN. (2) Hyperkalemia Current Visit: Yes Status: Acute Plan to address problem: Hemodialysis with 2K bath. (3) Anemia Current Visit: No Status: Chronic Qualifiers: Anemia type: due to chronic kidney disease Iron deficiency anemia type: I Vitamin B12 deficiency anemia type: V Folate deficiency anemia type: F Bone marrow failure anemia type: B Hemolytic anemia type: H Other causes of anemia: O Chronic kidney disease stage: on chronic dialysis Qualified Code(s ): N18.6 - End stage renal disease; D63.1 - Anemia in chronic kidney disease; Z99.2 - Dependence on renal dialysis Plan to address problem: S/p multiple units of PRBC. Epogen on dialysis days. Labs pending. (4) Hypotension Current Visit: Yes Status: Chronic Qualifiers: Hypotension type: H Trimester: T Plan to address problem: On Levophed. (5) Volume overload Current Visit: Yes Status: Acute Qualifiers: Hypervolemia type: H Plan to address problem: UF as tolerated. (6) Leukocytosis Current Visit: Yes Status: Acute Qualifiers: Leukocytosis type: unspecified Qualified Code(s): D72.829 - Elevated white blood cell count, unspecified Plan to address problem: Monitor. (7) Acute respiratory failure with hypoxemia Current Visit: Yes Status: Acute Plan to address problem: On the vent. (8) Sepsis Current Visit: Yes Status: Acute Qualifiers: Sepsis type: S Subjective Date of service: 09/17/17 Principal diagnosis: respiratory failure, sepsis, shock rectal bleeding Interval history: Patient was seen and examined at the bedside. Remain on the vent. Objective - Vital Signs Vital signs: Vital Signs - 12hr 09/16/17 09/16/17 09/16/17 20:00 20:16 20:30 Temperature Pulse Rate 101 H 107 H 101 H Pulse Rate [ 107 H Anterior Bilateral Throughout] Pulse Rate [ 98 H Apical] Respiratory 21 17 20 Rate Respiratory 20 Rate [Anterior Bilateral Throughout] Blood Pressure 89/48 95/50 106/46 O2 Sat by Pulse 100 100 100 Oximetry O2 Sat by Pulse Oximetry [ Assessment] 09/16/17 09/16/17 09/16/17 20:46 21:00 21:16 Temperature Pulse Rate 95 H 97 H 96 H Pulse Rate [ Anterior Bilateral Throughout] Pulse Rate [ Apical] Respiratory 21 18 20 Rate Respiratory Rate [Anterior Bilateral Throughout] Blood Pressure 106/46 85/46 85/46 O2 Sat by Pulse 100 100 100 Oximetry O2 Sat by Pulse Oximetry [ Assessment] 09/16/17 09/16/17 09/16/17 21:30 21:46 22:00 Temperature Pulse Rate 98 H 95 H 95 H Pulse Rate [ Anterior Bilateral Throughout] Pulse Rate [ Apical] Respiratory 21 20 21 Rate Respiratory Rate [Anterior Bilateral Throughout] Blood Pressure 97/49 97/49 102/49 O2 Sat by Pulse 100 100 100 Oximetry O2 Sat by Pulse Oximetry [ Assessment] 09/16/17 09/16/17 09/16/17 22:16 22:30 22:42 Temperature 99.4 F Pulse Rate 94 H 103 H Pulse Rate [ Anterior Bilateral Throughout] Pulse Rate [ Apical] Respiratory 19 16 Rate Respiratory Rate [Anterior Bilateral Throughout] Blood Pressure 102/49 97/55 O2 Sat by Pulse 100 100 Oximetry O2 Sat by Pulse Oximetry [ Assessment] 09/16/17 09/16/17 09/16/17 22:46 23:00 23:16 Temperature Pulse Rate 96 H 97 H 102 H Pulse Rate [ Anterior Bilateral Throughout] Pulse Rate [ Apical] Respiratory 20 18 16 Rate Respiratory Rate [Anterior Bilateral Throughout] Blood Pressure 97/55 94/59 94/59 O2 Sat by Pulse 100 100 100 Oximetry O2 Sat by Pulse Oximetry [ Assessment] 09/16/17 09/16/17 09/16/17 23:20 23:24 23:30 Temperature Pulse Rate 99 H 102 H Pulse Rate [ Anterior Bilateral Throughout] Pulse Rate [ Apical] Respiratory 29 H Rate Respiratory Rate [Anterior Bilateral Throughout] Blood Pressure 94/59 94/59 O2 Sat by Pulse 100 100 Oximetry O2 Sat by Pulse 100 Oximetry [ Assessment] 09/16/17 09/17/17 09/17/17 23:46 00:00 00:16 Temperature Pulse Rate 96 H 110 H 93 H Pulse Rate [ Anterior Bilateral Throughout] Pulse Rate [ 103 H Apical] Respiratory 20 16 20 Rate Respiratory Rate [Anterior Bilateral Throughout] Blood Pressure 106/49 112/54 112/54 O2 Sat by Pulse 99 93 Oximetry O2 Sat by Pulse Oximetry [ Assessment] 09/17/17 09/17/17 09/17/17 00:30 00:46 01:00 Temperature Pulse Rate 114 H 100 H 100 H Pulse Rate [ Anterior Bilateral Throughout] Pulse Rate [ Apical] Respiratory 17 22 20 Rate Respiratory Rate [Anterior Bilateral Throughout] Blood Pressure 122/48 122/48 99/47 O2 Sat by Pulse Oximetry O2 Sat by Pulse Oximetry [ Assessment] 09/17/17 09/17/17 09/17/17 01:16 01:30 01:46 Temperature Pulse Rate 104 H 92 H 101 H Pulse Rate [ Anterior Bilateral Throughout] Pulse Rate [ Apical] Respiratory 17 20 20 Rate Respiratory Rate [Anterior Bilateral Throughout] Blood Pressure 99/47 99/47 89/43 O2 Sat by Pulse Oximetry O2 Sat by Pulse Oximetry [ Assessment] 09/17/17 09/17/17 09/17/17 02:00 02:15 02:16 Temperature Pulse Rate 94 H 89 Pulse Rate [ 90 92 H Anterior Bilateral Throughout] Pulse Rate [ Apical] Respiratory 20 20 Rate Respiratory 20 20 Rate [Anterior Bilateral Throughout] Blood Pressure 92/50 92/50 O2 Sat by Pulse Oximetry O2 Sat by Pulse Oximetry [ Assessment] 09/17/17 09/17/17 09/17/17 02:30 02:46 03:00 Temperature Pulse Rate 106 H 95 H 112 H Pulse Rate [ Anterior Bilateral Throughout] Pulse Rate [ Apical] Respiratory 21 20 14 Rate Respiratory Rate [Anterior Bilateral Throughout] Blood Pressure 106/52 106/52 104/47 O2 Sat by Pulse 100 Oximetry O2 Sat by Pulse Oximetry [ Assessment] 09/17/17 09/17/17 09/17/17 03:16 03:18 03:30 Temperature 99.5 F Pulse Rate 104 H 97 H Pulse Rate [ Anterior Bilateral Throughout] Pulse Rate [ Apical] Respiratory 21 16 Rate Respiratory Rate [Anterior Bilateral Throughout] Blood Pressure 104/47 98/54 O2 Sat by Pulse 100 99 Oximetry O2 Sat by Pulse Oximetry [ Assessment] 09/17/17 09/17/17 09/17/17 03:46 04:00 04:16 Temperature Pulse Rate 101 H 106 H 95 H Pulse Rate [ Anterior Bilateral Throughout] Pulse Rate [ Apical] Respiratory 20 13 19 Rate Respiratory Rate [Anterior Bilateral Throughout] Blood Pressure 98/54 110/65 110/65 O2 Sat by Pulse 99 99 98 Oximetry O2 Sat by Pulse Oximetry [ Assessment] 09/17/17 09/17/17 09/17/17 04:30 04:46 05:00 Temperature Pulse Rate 97 H 107 H Pulse Rate [ Anterior Bilateral Throughout] Pulse Rate [ 103 H Apical] Respiratory 21 31 H 21 Rate Respiratory Rate [Anterior Bilateral Throughout] Blood Pressure 94/46 94/46 92/50 O2 Sat by Pulse 100 98 Oximetry O2 Sat by Pulse Oximetry [ Assessment] 09/17/17 09/17/17 09/17/17 05:16 05:30 05:46 Temperature Pulse Rate 98 H 102 H 103 H Pulse Rate [ Anterior Bilateral Throughout] Pulse Rate [ Apical] Respiratory 20 21 23 Rate Respiratory Rate [Anterior Bilateral Throughout] Blood Pressure 92/50 92/50 107/47 O2 Sat by Pulse 99 96 100 Oximetry O2 Sat by Pulse Oximetry [ Assessment] 09/17/17 09/17/17 09/17/17 06:00 06:16 06:48 Temperature Pulse Rate 99 H 109 H Pulse Rate [ 92 H Anterior Bilateral Throughout] Pulse Rate [ Apical] Respiratory 21 20 Rate Respiratory 20 Rate [Anterior Bilateral Throughout] Blood Pressure 107/47 115/49 O2 Sat by Pulse 100 100 Oximetry O2 Sat by Pulse Oximetry [ Assessment] - General Appearance General appearance: well-developed, appears stated age, obese, other (on the vent, FiO2 30%, right IJ temp catheter) EENT: ATNC, PERRL Neck: supple Respiratory: Present: Clear to Ascultation Cardiology: regular, S1S2, no murmurs Gastrointestinal: obese, other (dressing, MERVIN drain, ostomy noted) Integumentary: no rash Neurologic: other (opens eyes) Musculoskeletal: other (2+ edema of both LEs noted) - Lab 09/16/17 05:30 09/16/17 05:30 Most recent lab results ABG pH 7.323 pH Units (7.350-7.450) L 09/09/17 Unknown ABG pCO2 41.1 mm Hg 09/09/17 Unknown ABG pO2 94.1 mm Hg (80.0-90.0) H 09/09/17 Unknown ABG HCO3 20.9 mmol/L (20.0-26.0) 09/09/17 Unknown ABG O2 Saturation 97.2 % (95.0-99.0) 09/09/17 Unknown Calcium 8.5 mg/dL (8.4-10.2) 09/16/17 05:30 Phosphorus 4.80 mg/dL (2.5-4.5) H 09/16/17 05:30 Magnesium 1.70 mg/dL (1.7-2.3) 09/16/17 05:30
[2017-09-17 07:58] LABS: Hematocrit 24.8 % (30.3-42.9); Hemoglobin 8.4 gm/dl (10.1-14.3); Mean Corpuscular HGB Conc 34 % (30-34); Mean Corpuscular Hemoglobin 30 pg (28-32); Mean Corpuscular Volume 90 fl (79-97); Platelet Count 203 K/mm3 (140-440); Red Blood Count 2.75 M/mm3 (3.65-5.03); Red Cell Distribution Width 18.3 % (13.2-15.2)
[2017-09-17 08:00] LABS: White Blood Count 34.6 K/mm3 (4.5-11.0)
[2017-09-17 08:12] LABS: Calcium 8.3 mg/dL (8.4-10.2); Chloride 102.7 mmol/L (98-107); Phosphorous 3.4 mg/dL (2.5-4.5); Potassium 4.2 mmol/L (3.6-5.0)
--- NOTE | 2017-09-17 08:39 | Progress Note ---
Assessment and Plan Assessment and plan: Acute hypoxic respiratory failure on Mechanical ventilation > 96 hours continue ventilator support s/p tracheostomy on 09/09/17, had failed extubation multiple times Sepsis secondary to peritonitis, Intra abdominal abscess and Bowel obstruction Patient had completed 14 days of meropenem and diflucan, was restarted again due to fever/septic shock continue abx per ID recommendation. Currently on Meropenem and Micafungin she has had the following procedures 08/31: Ex lap with abdominal wash out and closure 08/17: Ex lap with G tube placement, EGD, abdominal wash out and removal of PD Cath 09/15/17 Ex lap, transverse colectomy,right sided colostomy,abdominal washout Acute GI bleeding with severe acute blood loss anemia EGD showed small gastric ulcer, ulcerative esophagitis, she had multiple transfusions Patient had CTA of abdomen and pelvis no active bleeding, CT Abdomen repeated , no acute findings transfuse to keep Hg above 8 given septic shock Anemia of Hgb 5.7 yesterday due to acute blood loss, intraabdominal bleed. She was taken to OR yesterday. Colonic perforation and intraabdominal bleed yesterday. Hemoglobin dropped to5.7. Exploratory lap,transverse colectomy, right sided colostomy and abdominal washout done by Dr. Chamorro, Surg. Hemoglobin 9.8 today after 3 Units PRBC transfused yesterday ESRD. Dialysis as per Nephrology. Septic shock/hypotension Still on IV pressors,Vasopressin and Levophed but is being weaned down continue abx, ID input appreciated Arterial line placed on left upper ext on 09/13/17 Leukocytosis worsening. May be combination of recent colonic perforation 2 days ago on 09/15/2017 and also she was just started on steroids. WBC 34.6 today was down to normal 9.8 just two days ago. Will monitor WBC Severe Protein calorie malnutrition Continue with TPN Sacral and lower extremity wound, POA continue wound care NSVT, resolved, was likely due to levophed, wean as tolerated DVT prophylaxis; SCDs Not on anticoagualation because of GI bleed Disposition: continue ICU care Prognosis: guarded On Saturday09/13/17 at 9am, we had a lengthy family meeting about 30-35 mins. Those present: myself, Dr. Mcamhan, Dr. Rasmussen, Surgeon, Dr. Carvajal ID Physician, Shyanne Fink, case liner, and patient's family including and daughter. Discuss with family regularly. Full code status. Discussed with family. History Interval history: Patient with severe sepsis,septic shock,acute resp failure, Colonic perforation and intra-abdominal bleed, had surgery 09/15/17 Hospitalist Physical - Physical exam Narrative exam: Gen Appearance: Not in acute distress,morbidly obese HEENT: normocephalic, atraumatic Neck: supple, no JVD, Tracheostomy Lungs: Clear to auscultation, no rales, no wheezing, Heart: S1 and S2 regular, no murmurs,no rubs or gallop, Abdomen: Soft , non tender, non distended, Dressing over abdomen, G tube, right colostomy, surgical drain Extremity:Bilateral edema, no clubbing or cyanosis, Neuro : Sedated - Constitutional Vitals: Temp Pulse Resp BP Pulse Ox 99.5 F 92 H 20 115/49 100 09/17/17 03:18 09/17/17 06:48 09/17/17 06:48 09/17/17 06:16 09/17/17 06:16 General appearance: Present: severe distress Results - Labs CBC & Chem 7: 09/17/17 06:10 09/17/17 06:10 Labs: Laboratory Last Values WBC 34.6 K/mm3 (4.5-11.0) H 09/17/17 06:10 RBC 2.75 M/mm3 (3.65-5.03) L 09/17/17 06:10 Hgb 8.4 gm/dl (10.1-14.3) L 09/17/17 06:10 Hct 24.8 % (30.3-42.9) L 09/17/17 06:10 MCV 90 fl (79-97) 09/17/17 06:10 MCH 30 pg (28-32) 09/17/17 06:10 MCHC 34 % (30-34) 09/17/17 06:10 RDW 18.3 % (13.2-15.2) H 09/17/17 06:10 Plt Count 203 K/mm3 (140-440) 09/17/17 06:10 Lymph % (Auto) [employer] 08/19/17 07:37 [place] % (Auto) [employer] 09/13/17 Unknown Eos % (Auto) [employer] 08/19/17 07:37 Baso % (Auto) [employer] 08/19/17 07:37 Lymph # [employer] 08/19/17 07:37 [place] # [employer] 08/19/17 07:37 Eos # [employer] 08/19/17 07:37 Baso # [employer] 08/19/17 07:37 Add Manual Diff Complete 09/15/17 22:25 Total Counted 100 09/15/17 22:25 Seg Neutrophils % [employer] 09/08/17 04:05 Seg Neuts % (Manual) 56.0 % (40.0-70.0) 09/15/17 22:25 Band Neutrophils % 26.0 % 09/15/17 22:25 Lymphocytes % (Manual) 12.0 % (13.4-35.0) L 09/15/17 22:25 Reactive Lymphs % (Man) 0 % 09/15/17 22:25 Monocytes % (Manual) 6.0 % (0.0-7.3) 09/15/17 22:25 Eosinophils % (Manual) 0 % (0.0-4.3) 09/15/17 22:25 Basophils % (Manual) 0 % (0.0-1.8) 09/15/17 22:25 Metamyelocytes % 0 % 09/15/17 22:25 Myelocytes % 0 % 09/15/17 22:25 Promyelocytes % 0 % 09/15/17 22:25 Blast Cells % 0 % 09/15/17 22:25 Nucleated RBC % 5.0 % (0.0-0.9) H 09/15/17 22:25 Seg Neutrophils # [employer] 08/19/17 07:37 Seg Neutrophils # Man 11.0 K/mm3 (1.8-7.7) H 09/15/17 22:25 Band Neutrophils # 5.1 K/mm3 09/15/17 22:25 Lymphocytes # (Manual) 2.4 K/mm3 (1.2-5.4) 09/15/17 22:25 Abs React Lymphs (Man) 0.0 K/mm3 09/15/17 22:25 Monocytes # (Manual) 1.2 K/mm3 (0.0-0.8) H 09/15/17 22:25 Eosinophils # (Manual) 0.0 K/mm3 (0.0-0.4) 09/15/17 22:25 Basophils # (Manual) 0.0 K/mm3 (0.0-0.1) 09/15/17 22:25 Metamyelocytes # 0.0 K/mm3 09/15/17 22:25 Myelocytes # 0.0 K/mm3 09/15/17 22:25 Promyelocytes # 0.0 K/mm3 09/15/17 22:25 Blast Cells # 0.0 K/mm3 09/15/17 22:25 Pathologist Review Not Reportable 08/30/17 05:20 WBC Morphology Not Reportable 09/15/17 22:25 Hypersegmented Neuts Not Reportable 09/15/17 22:25 Hyposegmented Neuts Not Reportable 09/15/17 22:25 Hypogranular Neuts Not Reportable 09/15/17 22:25 Smudge Cells Not Reportable 09/15/17 22:25 Toxic Granulation Not Reportable 09/15/17 22:25 Toxic Vacuolation Not Reportable 09/15/17 22:25 Dohle Bodies Not Reportable 09/15/17 22:25 Pelger-Huet Anomaly Not Reportable 09/15/17 22:25 Ariel Rods Not Reportable 09/15/17 22:25 Platelet Estimate Consistent w auto 09/15/17 22:25 Clumped Platelets Not Reportable 09/15/17 22:25 Plt Clumps, EDTA Not Reportable 09/15/17 22:25 Large Platelets Not Reportable 09/15/17 22:25 Giant Platelets Not Reportable 09/15/17 22:25 Platelet Satelliting Not Reportable 09/15/17 22:25 Plt Morphology Comment Not Reportable 09/15/17 22:25 RBC Morphology Not Reportable 09/15/17 22:25 Dimorphic RBCs Not Reportable 09/15/17 22:25 Polychromasia Not Reportable 09/15/17 22:25 Hypochromasia 1+ 09/15/17 22:25 Poikilocytosis Not Reportable 09/15/17 22:25 Anisocytosis 1+ 09/15/17 22:25 Microcytosis Few 09/15/17 22:25 Macrocytosis Not Reportable 09/15/17 22:25 Spherocytes Not Reportable 09/15/17 22:25 Pappenheimer Bodies Not Reportable 09/15/17 22:25 Sickle Cells Not Reportable 09/15/17 22:25 Target Cells Few 09/15/17 22:25 Tear Drop Cells Not Reportable 09/15/17 22:25 Ovalocytes Not Reportable 09/15/17 22:25 Stomatocytes Rare 09/12/17 05:25 Helmet Cells Not Reportable 09/15/17 22:25 [place] Bodies Not Reportable 09/15/17 22:25 [place] Rings Not Reportable 09/15/17 22:25 [place] Cells Not Reportable 09/15/17 22:25 Bite Cells Not Reportable 09/15/17 22:25 Crenated Cell Not Reportable 09/15/17 22:25 Elliptocytes Not Reportable 09/15/17 22:25 Acanthocytes (Spur) Not Reportable 09/15/17 22:25 Rouleaux Not Reportable 09/15/17 22:25 Hemoglobin C Crystals Not Reportable 09/15/17 22:25 Schistocytes Not Reportable 09/15/17 22:25 Malaria parasites Not Reportable 09/15/17 22:25 Jovanni Bodies Not Reportable 09/15/17 22:25 Hem Pathologist Commnt No 09/15/17 22:25 PT 15.4 Sec. (12.2-14.9) H 09/15/17 12:45 INR 1.16 (0.87-1.13) H 09/15/17 12:45 APTT 28.7 Sec. (24.2-36.6) 08/31/17 18:15 POC ABG pH 7.347 (7.35-7.45) L 09/13/17 11:36 ABG pH 7.323 pH Units (7.350-7.450) L 09/09/17 Unknown POC ABG pCO2 34.3 (35-45) L 09/13/17 11:36 ABG pCO2 41.1 mm Hg 09/09/17 Unknown POC ABG pO2 134 (80-105) H 09/13/17 11:36 ABG pO2 94.1 mm Hg (80.0-90.0) H 09/09/17 Unknown POC ABG HCO3 18.8 09/13/17 11:36 ABG HCO3 20.9 mmol/L (20.0-26.0) 09/09/17 Unknown POC ABG Total CO2 20 09/13/17 11:36 POC ABG O2 Sat 99 09/13/17 11:36 ABG O2 Saturation 97.2 % (95.0-99.0) 09/09/17 Unknown ABG O2 Content 10.9 (0.0-44) 09/09/17 Unknown POC ABG Base Excess -7 09/13/17 11:36 ABG Base Excess -4.8 mmol/L (-2.0-3.0) L 09/09/17 Unknown ABG Hemoglobin 8.0 gm/dl (12.0-16.0) L 09/09/17 Unknown ABG Carboxyhemoglobin 2.0 % (0.0-5.0) 09/09/17 Unknown ABG Methemoglobin 0.3 % (0.0-1.5) 09/09/17 Unknown VBG pH 7.462 (7.320-7.420) H 08/08/17 14:52 Oxyhemoglobin 94.9 % (95.0-99.0) L 09/09/17 Unknown FiO2 30 % 09/13/17 11:36 Sodium 144 mmol/L (137-145) 09/17/17 06:10 Potassium 4.2 mmol/L (3.6-5.0) 09/17/17 06:10 Chloride 102.7 mmol/L (98-107) 09/17/17 06:10 Carbon Dioxide 22 mmol/L (22-30) 09/17/17 06:10 Anion Gap 24 mmol/L 09/17/17 06:10 BUN 82 mg/dL (7-17) H 09/17/17 06:10 Creatinine 2.1 mg/dL (0.7-1.2) H 09/17/17 06:10 Estimated GFR 29 ml/min 09/17/17 06:10 BUN/Creatinine Ratio 39 % 09/17/17 06:10 Glucose 252 mg/dL (65-100) H 09/17/17 06:10 POC Glucose 243 (70-105) H 09/17/17 05:27 Lactic Acid 1.60 mmol/L (0.7-2.0) 08/17/17 11:20 Calcium 8.3 mg/dL (8.4-10.2) L 09/17/17 06:10 Phosphorus 3.40 mg/dL (2.5-4.5) D 09/17/17 06:10 Magnesium 1.70 mg/dL (1.7-2.3) 09/16/17 05:30 Iron 22 ug/dL (37-170) L 09/12/17 05:25 TIBC 81 mcg/dL (250-450) L 09/12/17 05:25 Ferritin > 2000.0 ng/mL (13.0-400.0) H 09/12/17 05:25 Total Bilirubin 2.40 mg/dL (0.1-1.2) H 09/16/17 05:30 Direct Bilirubin 0.2 mg/dL (0-0.2) 08/08/17 14:11 Indirect Bilirubin 0.3 mg/dL 08/08/17 14:11 AST 90 units/L (5-40) H 09/16/17 05:30 ALT 45 units/L (7-56) 09/16/17 05:30 Alkaline Phosphatase 298 units/L (35-129) H 09/16/17 05:30 Ammonia 25.0 umol/L (25-60) 08/08/17 14:52 Total Creatine Kinase 20 units/L (30-135) L 09/16/17 05:30 Troponin T 0.132 ng/mL (0.00-0.029) H* 08/09/17 13:25 C-Reactive Protein 2.80 mg/dL (0.00-1.30) H 09/06/17 05:30 NT-Pro-B Natriuret Pep 6156 pg/mL (0-900) H 08/08/17 14:11 Total Protein 4.1 g/dL (6.3-8.2) L 09/16/17 05:30 Albumin 1.8 g/dL (3.9-5) L 09/16/17 05:30 Albumin/Globulin Ratio 0.8 % 09/16/17 05:30 Triglycerides 180 mg/dL (2-149) H 09/03/17 04:00 Cholesterol 91 mg/dL (50-199) 08/08/17 21:23 LDL Cholesterol Direct 53 mg/dL (50-130) 08/08/17 21:23 HDL Cholesterol 26 mg/dL (40-59) L 08/08/17 21:23 Cholesterol/HDL Ratio 3.50 % 08/08/17 21:23 Amylase 45 units/L (27-131) 08/16/17 09:50 Lipase 34 units/L (13-60) 08/16/17 09:50 TSH 6.580 mlU/mL (0.270-4.200) H 08/08/17 14:22 Free T4 1.46 ng/dL (0.76-1.46) 08/08/17 14:22 Total Cortisol 28.3 mcg/dL () 09/13/17 12:50 Urine Color Yellow (Yellow) 08/08/17 20:15 Urine Turbidity Turbid (Clear) 08/08/17 20:15 Urine pH 8.0 (5.0-7.0) H 08/08/17 20:15 Ur Specific [place] 1.015 (1.003-1.030) 08/08/17 20:15 Urine Protein 100 mg/dl mg/dL (Negative) 08/08/17 20:15 Urine Glucose (UA) Neg mg/dL (Negative) 08/08/17 20:15 Urine Ketones Neg mg/dL (Negative) 08/08/17 20:15 Urine Blood Mod (Negative) 08/08/17 20:15 Urine Nitrite Neg (Negative) 08/08/17 20:15 Urine Bilirubin Neg (Negative) 08/08/17 20:15 Urine Urobilinogen < 2.0 mg/dL (<2.0) 08/08/17 20:15 Ur Leukocyte Esterase Lg (Negative) 08/08/17 20:15 Urine WBC (Auto) 24.0 /HPF (0.0-6.0) H 08/08/17 20:15 Urine RBC (Auto) 3.0 /HPF (0.0-6.0) 08/08/17 20:15 U Epithel Cells (Auto) 3.0 /HPF (0-13.0) 08/08/17 20:15 Urine Bacteria (Auto) 4+ /HPF (Negative) 08/08/17 20:15 Urine Mucus 3+ /HPF 08/08/17 20:15 Fluid Type Peritoneal 08/08/17 18:18 Fluid Color Straw 08/08/17 18:18 Fluid Appearance Clear 08/08/17 18:18 Fluid pH 7.74 08/08/17 18:18 Fluid WBC 4 /mm3 08/08/17 18:18 Fluid RBC 1 /mm3 08/08/17 18:18 Fluid Seg Neutrophils 12 % 08/08/17 18:18 Fluid Lymphocytes 0 % 08/08/17 18:18 Fluid Reactive Lymphs 0 % 08/08/17 18:18 Fluid Monocytes 1 % 08/08/17 18:18 Fluid Eosinophils 0 % 08/08/17 18:18 Fluid Basophils 0 % 08/08/17 18:18 Fluid Glucose 315 mg/dL (40-70) H 08/08/17 18:18 Random Vancomycin 19.5 ug/mL (0-40.0) 08/22/17 03:40 Hep Bs Antigen Non-reactive (Negative) 08/22/17 03:40 Hepatitis C Antibody Non-reactive (NonReactive) 08/22/17 03:40 Miscellaneous Test Flexitest 1 H 09/06/17 09:57 Blood Type O POSITIVE 09/15/17 12:45 Antibody Screen Negative 09/15/17 12:45 VAN Antibody Screen Negative 09/07/17 17:07 Crossmatch See Detail 09/15/17 12:45
[2017-09-17 08:56] LABS: Basophils % (Manual) 0 % (0.0-1.8); Blastocytes % (Manual) 0 %; Eosinophils % (Manual) 0 % (0.0-4.3)
[2017-09-17 08:57] LABS: Acanthocytes 1+; Anisocytosis 2+; Elliptocytes Few; Poikilocytosis 2+; Polychromasia 1+
[2017-09-17 08:58] LABS: Diff Status Complete; Large Platelets Few; Platelet Estimate Cons; Schistocytes Rare; Target Cells Rare
--- NOTE | 2017-09-17 09:09 | Progress Note ---
Assessment and Plan Acute bacterial peritonitis/abscess s/p exlap. Increase to lucid this morning after recent surgery. Shock. Levophed dropped to 5 mcg/m SBO w wound dehiscence Acute respiratory failure, hypoxia.On Vent support.rapid shallow breathing index is 35. She appears to be able to tolerate pressure support/CPAP, 12/5 cm H2O at the bedside Morbid obesity, ESRD Anemia. Controlled Sepsis, on antibiotics. ID following LGIB status post acute blood loss anemia Rec: Continue pressure support/CPAP as tolerated Discussed with nurses using Dilaudid PRN for pain control Restart fentanyl drip if needed for anxiety and pain Continue ABX. Continue ID recommendations including Kristine coverage Continue to wean pressors as tolerated.keep MAP > 65 if possible Consider discontinuing or weaning steroids since cortisol has been consistently normal Transfuse PRBCs for hemoglobin below 7 Continue with albumin replacement HD per nephrology Prognosis is guarded . Status post discussed with family at the bedside. All questions answered. critical care time was 31 minutes of [id number] evaluation and coordination of care Subjective Date of service: 09/17/17 Principal diagnosis: respiratory failure, sepsis, shock rectal bleeding Interval history: Some pain and discomfort earlier. Off fentanyl drip. No other complaints Objective Vital Signs - 12hr 09/16/17 09/16/17 09/16/17 21:16 21:30 21:46 Temperature Pulse Rate 96 H 98 H 95 H Pulse Rate [ Anterior Bilateral Throughout] Pulse Rate [ Apical] Respiratory 20 21 20 Rate Respiratory Rate [Anterior Bilateral Throughout] Blood Pressure 85/46 97/49 97/49 O2 Sat by Pulse 100 100 100 Oximetry O2 Sat by Pulse Oximetry [ Assessment] 09/16/17 09/16/17 09/16/17 22:00 22:16 22:30 Temperature Pulse Rate 95 H 94 H 103 H Pulse Rate [ Anterior Bilateral Throughout] Pulse Rate [ Apical] Respiratory 21 19 16 Rate Respiratory Rate [Anterior Bilateral Throughout] Blood Pressure 102/49 102/49 97/55 O2 Sat by Pulse 100 100 100 Oximetry O2 Sat by Pulse Oximetry [ Assessment] 09/16/17 09/16/17 09/16/17 22:42 22:46 23:00 Temperature 99.4 F Pulse Rate 96 H 97 H Pulse Rate [ Anterior Bilateral Throughout] Pulse Rate [ Apical] Respiratory 20 18 Rate Respiratory Rate [Anterior Bilateral Throughout] Blood Pressure 97/55 94/59 O2 Sat by Pulse 100 100 Oximetry O2 Sat by Pulse Oximetry [ Assessment] 09/16/17 09/16/17 09/16/17 23:16 23:20 23:24 Temperature Pulse Rate 102 H 99 H Pulse Rate [ Anterior Bilateral Throughout] Pulse Rate [ Apical] Respiratory 16 Rate Respiratory Rate [Anterior Bilateral Throughout] Blood Pressure 94/59 94/59 O2 Sat by Pulse 100 100 Oximetry O2 Sat by Pulse 100 Oximetry [ Assessment] 09/16/17 09/16/17 09/17/17 23:30 23:46 00:00 Temperature Pulse Rate 102 H 96 H 110 H Pulse Rate [ Anterior Bilateral Throughout] Pulse Rate [ 103 H Apical] Respiratory 29 H 20 16 Rate Respiratory Rate [Anterior Bilateral Throughout] Blood Pressure 94/59 106/49 112/54 O2 Sat by Pulse 100 99 Oximetry O2 Sat by Pulse Oximetry [ Assessment] 09/17/17 09/17/17 09/17/17 00:16 00:30 00:46 Temperature Pulse Rate 93 H 114 H 100 H Pulse Rate [ Anterior Bilateral Throughout] Pulse Rate [ Apical] Respiratory 20 17 22 Rate Respiratory Rate [Anterior Bilateral Throughout] Blood Pressure 112/54 122/48 122/48 O2 Sat by Pulse 93 Oximetry O2 Sat by Pulse Oximetry [ Assessment] 09/17/17 09/17/17 09/17/17 01:00 01:16 01:30 Temperature Pulse Rate 100 H 104 H 92 H Pulse Rate [ Anterior Bilateral Throughout] Pulse Rate [ Apical] Respiratory 20 17 20 Rate Respiratory Rate [Anterior Bilateral Throughout] Blood Pressure 99/47 99/47 99/47 O2 Sat by Pulse Oximetry O2 Sat by Pulse Oximetry [ Assessment] 09/17/17 09/17/17 09/17/17 01:46 02:00 02:15 Temperature Pulse Rate 101 H 94 H Pulse Rate [ 90 92 H Anterior Bilateral Throughout] Pulse Rate [ Apical] Respiratory 20 20 Rate Respiratory 20 20 Rate [Anterior Bilateral Throughout] Blood Pressure 89/43 92/50 O2 Sat by Pulse Oximetry O2 Sat by Pulse Oximetry [ Assessment] 09/17/17 09/17/17 09/17/17 02:16 02:30 02:46 Temperature Pulse Rate 89 106 H 95 H Pulse Rate [ Anterior Bilateral Throughout] Pulse Rate [ Apical] Respiratory 20 21 20 Rate Respiratory Rate [Anterior Bilateral Throughout] Blood Pressure 92/50 106/52 106/52 O2 Sat by Pulse Oximetry O2 Sat by Pulse Oximetry [ Assessment] 09/17/17 09/17/17 09/17/17 03:00 03:16 03:18 Temperature 99.5 F Pulse Rate 112 H 104 H Pulse Rate [ Anterior Bilateral Throughout] Pulse Rate [ Apical] Respiratory 14 21 Rate Respiratory Rate [Anterior Bilateral Throughout] Blood Pressure 104/47 104/47 O2 Sat by Pulse 100 100 Oximetry O2 Sat by Pulse Oximetry [ Assessment] 09/17/17 09/17/17 09/17/17 03:30 03:46 04:00 Temperature Pulse Rate 97 H 101 H 106 H Pulse Rate [ Anterior Bilateral Throughout] Pulse Rate [ Apical] Respiratory 16 20 13 Rate Respiratory Rate [Anterior Bilateral Throughout] Blood Pressure 98/54 98/54 110/65 O2 Sat by Pulse 99 99 99 Oximetry O2 Sat by Pulse Oximetry [ Assessment] 09/17/17 09/17/17 09/17/17 04:16 04:30 04:46 Temperature Pulse Rate 95 H 97 H Pulse Rate [ Anterior Bilateral Throughout] Pulse Rate [ Apical] Respiratory 19 21 31 H Rate Respiratory Rate [Anterior Bilateral Throughout] Blood Pressure 110/65 94/46 94/46 O2 Sat by Pulse 98 100 Oximetry O2 Sat by Pulse Oximetry [ Assessment] 09/17/17 09/17/17 09/17/17 05:00 05:16 05:30 Temperature Pulse Rate 107 H 98 H 102 H Pulse Rate [ Anterior Bilateral Throughout] Pulse Rate [ 103 H Apical] Respiratory 21 20 21 Rate Respiratory Rate [Anterior Bilateral Throughout] Blood Pressure 92/50 92/50 92/50 O2 Sat by Pulse 98 99 96 Oximetry O2 Sat by Pulse Oximetry [ Assessment] 09/17/17 09/17/17 09/17/17 05:46 06:00 06:16 Temperature Pulse Rate 103 H 99 H 109 H Pulse Rate [ Anterior Bilateral Throughout] Pulse Rate [ Apical] Respiratory 23 21 20 Rate Respiratory Rate [Anterior Bilateral Throughout] Blood Pressure 107/47 107/47 115/49 O2 Sat by Pulse 100 100 100 Oximetry O2 Sat by Pulse Oximetry [ Assessment] 09/17/17 09/17/17 09/17/17 06:30 06:46 06:48 Temperature Pulse Rate 103 H 94 H Pulse Rate [ 92 H Anterior Bilateral Throughout] Pulse Rate [ Apical] Respiratory 15 21 Rate Respiratory 20 Rate [Anterior Bilateral Throughout] Blood Pressure 123/56 123/56 O2 Sat by Pulse 100 97 Oximetry O2 Sat by Pulse Oximetry [ Assessment] 09/17/17 09/17/17 09/17/17 07:00 07:16 07:30 Temperature Pulse Rate 99 H 96 H 114 H Pulse Rate [ Anterior Bilateral Throughout] Pulse Rate [ Apical] Respiratory 21 24 23 Rate Respiratory Rate [Anterior Bilateral Throughout] Blood Pressure 122/57 122/57 119/60 O2 Sat by Pulse 100 97 97 Oximetry O2 Sat by Pulse Oximetry [ Assessment] 09/17/17 09/17/17 09/17/17 07:46 08:00 08:16 Temperature Pulse Rate 112 H 96 H 108 H Pulse Rate [ Anterior Bilateral Throughout] Pulse Rate [ Apical] Respiratory 12 22 21 Rate Respiratory Rate [Anterior Bilateral Throughout] Blood Pressure 119/60 119/60 O2 Sat by Pulse 98 100 96 Oximetry O2 Sat by Pulse Oximetry [ Assessment] 09/17/17 08:30 Temperature Pulse Rate 101 H Pulse Rate [ Anterior Bilateral Throughout] Pulse Rate [ Apical] Respiratory 23 Rate Respiratory Rate [Anterior Bilateral Throughout] Blood Pressure 119/60 O2 Sat by Pulse 99 Oximetry O2 Sat by Pulse Oximetry [ Assessment] Constitutional: no acute distress, alert, other (critically ill on vent, obese) Eyes: non-icteric ENT: oropharynx moist Neck: supple, no lymphadenopathy, no JVD (large neck), other (trach in position , no bleeding) Effort: mildly labored Ascultation: Bilateral: clear ( ), diminished breath sounds (Limited expansion) , rhonchi (sporadic) Cardiovascular: regular rate and rhythm Gastrointestinal: absent bowel sounds, tender, other (abdominal incision with dressing , obese. Drain in place, no bleeding) Integumentary: normal Extremities: no cyanosis, pink and warm, edema Neurologic: non-focal exam, pupils equal and round Psychiatric: mood appropriate, affect normal CBC and BMP: 09/17/17 06:10 09/17/17 06:10 ABG, PT/INR, D-dimer: ABG POC ABG pH 7.347 (7.35-7.45) L 09/13/17 11:36 ABG pH 7.323 pH Units (7.350-7.450) L 09/09/17 Unknown POC ABG pCO2 34.3 (35-45) L 09/13/17 11:36 ABG pCO2 41.1 mm Hg 09/09/17 Unknown POC ABG pO2 134 (80-105) H 09/13/17 11:36 ABG pO2 94.1 mm Hg (80.0-90.0) H 09/09/17 Unknown POC ABG HCO3 18.8 09/13/17 11:36 POC ABG Total CO2 20 09/13/17 11:36 POC ABG O2 Sat 99 09/13/17 11:36 ABG O2 Saturation 97.2 % (95.0-99.0) 09/09/17 Unknown PT/INR, D-dimer PT 15.4 Sec. (12.2-14.9) H 09/15/17 12:45 INR 1.16 (0.87-1.13) H 09/15/17 12:45 Abnormal lab findings: Abnormal Labs 08/08/17 08/08/17 08/09/17 21:23 21:31 11:19 WBC 15.7 H RBC 2.93 L Hgb 8.7 L Hct 26.8 L MCV MCH RDW 19.2 H Plt Count Lymph % (Auto) [place] % (Auto) [place] # Seg Neutrophils % Seg Neuts % (Manual) Lymphocytes % (Manual) Monocytes % (Manual) Nucleated RBC % Seg Neutrophils # Seg Neutrophils # Man Lymphocytes # (Manual) Monocytes # (Manual) Eosinophils # (Manual) Basophils # (Manual) PT INR POC ABG pH 7.490 H ABG pH POC ABG pCO2 POC ABG pO2 122 H ABG pO2 ABG O2 Saturation ABG Base Excess ABG Hemoglobin Oxyhemoglobin Sodium Potassium Chloride Carbon Dioxide BUN Creatinine Glucose POC Glucose Calcium Phosphorus Magnesium Iron TIBC Ferritin Total Bilirubin AST ALT Alkaline Phosphatase Total Creatine Kinase Troponin T 0.133 H* C-Reactive Protein Total Protein Albumin Triglycerides HDL Cholesterol 26 L Miscellaneous Test Crossmatch 08/09/17 08/10/17 08/10/17 13:25 04:45 04:45 WBC 15.5 H RBC 2.97 L Hgb 8.9 L Hct 27.0 L MCV MCH RDW 19.2 H Plt Count Lymph % (Auto) [place] % (Auto) [place] # Seg Neutrophils % Seg Neuts % (Manual) 73.0 H Lymphocytes % (Manual) 7.0 L Monocytes % (Manual) 14.0 H Nucleated RBC % Seg Neutrophils # Seg Neutrophils # Man 11.3 H Lymphocytes # (Manual) 1.1 L Monocytes # (Manual) 2.2 H Eosinophils # (Manual) Basophils # (Manual) 0.2 H PT INR POC ABG pH ABG pH POC ABG pCO2 POC ABG pO2 ABG pO2 ABG O2 Saturation ABG Base Excess ABG Hemoglobin Oxyhemoglobin Sodium Potassium 3.3 L Chloride 97.3 L Carbon Dioxide 21 L BUN 23 H Creatinine 6.5 H Glucose POC Glucose Calcium 7.3 L Phosphorus Magnesium Iron TIBC Ferritin Total Bilirubin AST ALT Alkaline Phosphatase 138 H Total Creatine Kinase Troponin T 0.132 H* C-Reactive Protein Total Protein 4.8 L Albumin 1.4 L Triglycerides HDL Cholesterol Miscellaneous Test Crossmatch 08/11/17 08/11/17 08/12/17 04:00 04:00 05:50 WBC 19.3 H RBC 3.10 L Hgb 9.5 L Hct 28.2 L MCV MCH RDW 19.2 H Plt Count 463 H Lymph % (Auto) 7.[address] [place] % (Auto) 14.[address] [place] # 2.8 H Seg Neutrophils % 77.0 H Seg Neuts % (Manual) Lymphocytes % (Manual) Monocytes % (Manual) Nucleated RBC % Seg Neutrophils # 14.8 H Seg Neutrophils # Man Lymphocytes # (Manual) Monocytes # (Manual) Eosinophils # (Manual) Basophils # (Manual) PT INR POC ABG pH ABG pH POC ABG pCO2 POC ABG pO2 ABG pO2 ABG O2 Saturation ABG Base Excess ABG Hemoglobin Oxyhemoglobin Sodium 136 L 136 L Potassium 3.3 L Chloride 96.3 L 96.6 L Carbon Dioxide BUN 26 H 26 H Creatinine 6.4 H 6.2 H Glucose 135 H 133 H POC Glucose Calcium 8.2 L Phosphorus Magnesium 1.30 L Iron TIBC Ferritin Total Bilirubin AST ALT Alkaline Phosphatase 139 H Total Creatine Kinase Troponin T C-Reactive Protein Total Protein 5.5 L Albumin 1.7 L Triglycerides HDL Cholesterol Miscellaneous Test Crossmatch 08/12/17 08/12/17 08/12/17 05:50 05:50 05:50 WBC 20.1 H RBC 3.06 L Hgb 9.3 L Hct 27.9 L MCV MCH RDW 18.4 H Plt Count 471 H Lymph % (Auto) [place] % (Auto) [place] # Seg Neutrophils % Seg Neuts % (Manual) 85.0 H Lymphocytes % (Manual) 8.0 L Monocytes % (Manual) Nucleated RBC % Seg Neutrophils # Seg Neutrophils # Man 17.1 H Lymphocytes # (Manual) Monocytes # (Manual) 1.0 H Eosinophils # (Manual) Basophils # (Manual) PT 15.2 H INR 1.14 H POC ABG pH ABG pH POC ABG pCO2 POC ABG pO2 ABG pO2 ABG O2 Saturation ABG Base Excess ABG Hemoglobin Oxyhemoglobin Sodium Potassium Chloride Carbon Dioxide BUN Creatinine Glucose POC Glucose Calcium Phosphorus Magnesium Iron TIBC Ferritin Total Bilirubin AST ALT Alkaline Phosphatase Total Creatine Kinase Troponin T C-Reactive Protein 28.90 H Total Protein Albumin Triglycerides HDL Cholesterol Miscellaneous Test Crossmatch 08/12/17 08/13/17 08/13/17 16:23 06:14 06:14 WBC 21.8 H RBC 3.11 L Hgb 9.4 L Hct 28.2 L MCV MCH RDW 18.2 H Plt Count 492 H Lymph % (Auto) [place] % (Auto) [place] # Seg Neutrophils % Seg Neuts % (Manual) 73.0 H Lymphocytes % (Manual) 2.0 L Monocytes % (Manual) 15 H Nucleated RBC % Seg Neutrophils # Seg Neutrophils # Man 15.9 H Lymphocytes # (Manual) 0.4 L Monocytes # (Manual) 2.4 H Eosinophils # (Manual) Basophils # (Manual) PT INR POC ABG pH ABG pH POC ABG pCO2 POC ABG pO2 ABG pO2 ABG O2 Saturation ABG Base Excess ABG Hemoglobin Oxyhemoglobin Sodium Potassium Chloride 96.2 L Carbon Dioxide BUN 28 H Creatinine 5.6 H Glucose 114 H POC Glucose Calcium Phosphorus Magnesium Iron TIBC Ferritin Total Bilirubin AST ALT Alkaline Phosphatase Total Creatine Kinase Troponin T C-Reactive Protein 26.10 H Total Protein Albumin Triglycerides HDL Cholesterol Miscellaneous Test Crossmatch 08/13/17 08/14/17 08/14/17 16:39 04:00 04:00 WBC 22.1 H RBC 3.25 L Hgb 9.9 L Hct 29.5 L MCV MCH RDW 17.9 H Plt Count 525 H Lymph % (Auto) [place] % (Auto) [place] # Seg Neutrophils % Seg Neuts % (Manual) 74.0 H Lymphocytes % (Manual) 8.0 L Monocytes % (Manual) 12.0 H Nucleated RBC % Seg Neutrophils # Seg Neutrophils # Man 16.4 H Lymphocytes # (Manual) Monocytes # (Manual) 2.7 H Eosinophils # (Manual) Basophils # (Manual) PT INR POC ABG pH ABG pH POC ABG pCO2 POC ABG pO2 ABG pO2 ABG O2 Saturation ABG Base Excess ABG Hemoglobin Oxyhemoglobin Sodium 134 L Potassium 3.3 L Chloride 93.3 L Carbon Dioxide BUN 27 H Creatinine 6.0 H Glucose 152 H POC Glucose 151 H Calcium Phosphorus Magnesium Iron TIBC Ferritin Total Bilirubin AST ALT Alkaline Phosphatase Total Creatine Kinase Troponin T C-Reactive Protein Total Protein Albumin Triglycerides HDL Cholesterol Miscellaneous Test Crossmatch 08/15/17 08/16/17 08/16/17 09:10 09:50 09:50 WBC 31.1 H RBC 3.21 L Hgb 9.6 L Hct 29.3 L MCV MCH RDW 18.1 H Plt Count 642 H Lymph % (Auto) [place] % (Auto) [place] # Seg Neutrophils % Seg Neuts % (Manual) 74.0 H Lymphocytes % (Manual) 4.0 L Monocytes % (Manual) 9.0 H Nucleated RBC % Seg Neutrophils # Seg Neutrophils # Man 23.0 H Lymphocytes # (Manual) Monocytes # (Manual) 2.8 H Eosinophils # (Manual) Basophils # (Manual) PT INR POC ABG pH ABG pH POC ABG pCO2 POC ABG pO2 ABG pO2 ABG O2 Saturation ABG Base Excess ABG Hemoglobin Oxyhemoglobin Sodium 136 L 136 L Potassium 3.5 L Chloride 97.6 L 94.9 L Carbon Dioxide BUN 27 H 28 H Creatinine 5.6 H 5.5 H Glucose 117 H 103 H POC Glucose Calcium Phosphorus Magnesium Iron TIBC Ferritin Total Bilirubin AST ALT Alkaline Phosphatase 137 H Total Creatine Kinase Troponin T C-Reactive Protein Total Protein 5.4 L Albumin 1.5 L Triglycerides HDL Cholesterol Miscellaneous Test Crossmatch 08/16/17 08/17/17 08/17/17 09:50 05:00 06:26 WBC RBC Hgb Hct MCV MCH RDW Plt Count Lymph % (Auto) [place] % (Auto) [place] # Seg Neutrophils % Seg Neuts % (Manual) Lymphocytes % (Manual) Monocytes % (Manual) Nucleated RBC % Seg Neutrophils # Seg Neutrophils # Man Lymphocytes # (Manual) Monocytes # (Manual) Eosinophils # (Manual) Basophils # (Manual) PT INR POC ABG pH ABG pH POC ABG pCO2 POC ABG pO2 ABG pO2 ABG O2 Saturation ABG Base Excess ABG Hemoglobin Oxyhemoglobin Sodium 134 L Potassium 3.0 L Chloride 97.8 L Carbon Dioxide BUN 30 H Creatinine 5.3 H Glucose 147 H POC Glucose 165 H Calcium 7.5 L Phosphorus Magnesium Iron TIBC Ferritin Total Bilirubin AST ALT Alkaline Phosphatase Total Creatine Kinase Troponin T C-Reactive Protein 32.30 H Total Protein Albumin Triglycerides HDL Cholesterol Miscellaneous Test Crossmatch 08/17/17 08/17/17 08/17/17 10:56 11:20 11:20 WBC 39.1 H RBC 3.10 L Hgb 9.2 L Hct 28.6 L MCV MCH RDW 18.3 H Plt Count 580 H Lymph % (Auto) [place] % (Auto) [place] # Seg Neutrophils % Seg Neuts % (Manual) 89.5 H Lymphocytes % (Manual) 3.5 L Monocytes % (Manual) Nucleated RBC % Seg Neutrophils # Seg Neutrophils # Man 35.0 H Lymphocytes # (Manual) Monocytes # (Manual) 2.5 H Eosinophils # (Manual) Basophils # (Manual) 0.2 H PT INR POC ABG pH 7.464 H ABG pH POC ABG pCO2 34.1 L POC ABG pO2 75 L ABG pO2 ABG O2 Saturation ABG Base Excess ABG Hemoglobin Oxyhemoglobin Sodium Potassium Chloride Carbon Dioxide BUN Creatinine Glucose POC Glucose Calcium Phosphorus Magnesium Iron TIBC Ferritin Total Bilirubin AST ALT Alkaline Phosphatase Total Creatine Kinase Troponin T C-Reactive Protein Total Protein Albumin Triglycerides HDL Cholesterol Miscellaneous Test Flexitest 1 H Crossmatch 08/17/17 08/17/17 08/17/17 11:20 16:57 20:20 WBC 34.4 H RBC 2.81 L Hgb 8.4 L Hct 26.0 L MCV MCH RDW 17.8 H Plt Count 455 H Lymph % (Auto) [place] % (Auto) [place] # Seg Neutrophils % Seg Neuts % (Manual) Lymphocytes % (Manual) 3.5 L Monocytes % (Manual) Nucleated RBC % 5.0 H Seg Neutrophils # Seg Neutrophils # Man 16.5 H Lymphocytes # (Manual) Monocytes # (Manual) 1.0 H Eosinophils # (Manual) Basophils # (Manual) PT 16.0 H INR 1.29 H POC ABG pH ABG pH POC ABG pCO2 POC ABG pO2 ABG pO2 ABG O2 Saturation ABG Base Excess ABG Hemoglobin Oxyhemoglobin Sodium 135 L Potassium 2.9 L* Chloride Carbon Dioxide 20 L BUN 32 H Creatinine 5.4 H Glucose 129 H POC Glucose Calcium 7.5 L Phosphorus Magnesium 1.50 L Iron TIBC Ferritin Total Bilirubin AST 85 H ALT Alkaline Phosphatase Total Creatine Kinase Troponin T C-Reactive Protein Total Protein 4.0 L D Albumin 1.6 L Triglycerides HDL Cholesterol Miscellaneous Test Crossmatch 08/17/17 08/17/17 08/18/17 20:54 23:47 04:26 WBC RBC Hgb Hct MCV MCH RDW Plt Count Lymph % (Auto) [place] % (Auto) [place] # Seg Neutrophils % Seg Neuts % (Manual) Lymphocytes % (Manual) Monocytes % (Manual) Nucleated RBC % Seg Neutrophils # Seg Neutrophils # Man Lymphocytes # (Manual) Monocytes # (Manual) Eosinophils # (Manual) Basophils # (Manual) PT INR POC ABG pH 7.557 H ABG pH POC ABG pCO2 23.1 L 29.0 L POC ABG pO2 187 H 148 H ABG pO2 ABG O2 Saturation ABG Base Excess ABG Hemoglobin Oxyhemoglobin Sodium Potassium Chloride Carbon Dioxide BUN Creatinine Glucose POC Glucose 188 H Calcium Phosphorus Magnesium Iron TIBC Ferritin Total Bilirubin AST ALT Alkaline Phosphatase Total Creatine Kinase Troponin T C-Reactive Protein Total Protein Albumin Triglycerides HDL Cholesterol Miscellaneous Test Crossmatch 08/18/17 08/18/17 08/18/17 05:51 11:44 17:07 WBC RBC Hgb Hct MCV MCH RDW Plt Count Lymph % (Auto) [place] % (Auto) [place] # Seg Neutrophils % Seg Neuts % (Manual) Lymphocytes % (Manual) Monocytes % (Manual) Nucleated RBC % Seg Neutrophils # Seg Neutrophils # Man Lymphocytes # (Manual) Monocytes # (Manual) Eosinophils # (Manual) Basophils # (Manual) PT INR POC ABG pH ABG pH POC ABG pCO2 POC ABG pO2 ABG pO2 ABG O2 Saturation ABG Base Excess ABG Hemoglobin Oxyhemoglobin Sodium Potassium Chloride Carbon Dioxide BUN Creatinine Glucose POC Glucose 202 H 195 H 182 H Calcium Phosphorus Magnesium Iron TIBC Ferritin Total Bilirubin AST ALT Alkaline Phosphatase Total Creatine Kinase Troponin T C-Reactive Protein Total Protein Albumin Triglycerides HDL Cholesterol Miscellaneous Test Crossmatch 08/18/17 08/18/17 08/18/17 23:45 Unknown Unknown WBC 39.0 H RBC 2.84 L Hgb 8.4 L Hct 26.5 L MCV MCH RDW 18.0 H Plt Count 476 H Lymph % (Auto) [place] % (Auto) [place] # Seg Neutrophils % Seg Neuts % (Manual) Lymphocytes % (Manual) 7.0 L Monocytes % (Manual) 10.0 H Nucleated RBC % 3.0 H Seg Neutrophils # Seg Neutrophils # Man 15.6 H Lymphocytes # (Manual) Monocytes # (Manual) 3.9 H Eosinophils # (Manual) Basophils # (Manual) PT INR POC ABG pH ABG pH POC ABG pCO2 POC ABG pO2 ABG pO2 ABG O2 Saturation ABG Base Excess ABG Hemoglobin Oxyhemoglobin Sodium Potassium Chloride Carbon Dioxide 19 L BUN 34 H Creatinine 5.6 H Glucose 201 H POC Glucose 163 H Calcium 7.8 L Phosphorus 1.90 L D Magnesium 1.60 L Iron TIBC Ferritin Total Bilirubin AST ALT Alkaline Phosphatase Total Creatine Kinase Troponin T C-Reactive Protein Total Protein Albumin Triglycerides HDL Cholesterol Miscellaneous Test Crossmatch 08/19/17 08/19/17 08/19/17 04:18 05:00 05:00 WBC 40.0 H RBC 2.46 L Hgb 7.3 L Hct 22.6 L MCV MCH RDW 18.1 H Plt Count Lymph % (Auto) [place] % (Auto) [place] # Seg Neutrophils % Seg Neuts % (Manual) Lymphocytes % (Manual) 8.0 L Monocytes % (Manual) Nucleated RBC % 2.0 H Seg Neutrophils # Seg Neutrophils # Man 16.4 H Lymphocytes # (Manual) Monocytes # (Manual) 1.2 H Eosinophils # (Manual) 1.2 H Basophils # (Manual) PT INR POC ABG pH 7.463 H ABG pH POC ABG pCO2 29.7 L POC ABG pO2 134 H ABG pO2 ABG O2 Saturation ABG Base Excess ABG Hemoglobin Oxyhemoglobin Sodium Potassium 5.1 H D Chloride Carbon Dioxide 20 L BUN 40 H Creatinine 5.3 H Glucose 128 H POC Glucose Calcium 7.8 L Phosphorus 1.90 L Magnesium Iron TIBC Ferritin Total Bilirubin AST ALT Alkaline Phosphatase Total Creatine Kinase Troponin T C-Reactive Protein Total Protein Albumin Triglycerides HDL Cholesterol Miscellaneous Test Crossmatch 08/19/17 08/19/17 08/19/17 05:19 07:37 09:52 WBC 45.0 H* RBC 2.50 L Hgb 7.5 L Hct 24.5 L MCV 98 H MCH RDW 18.4 H Plt Count Lymph % (Auto) [place] % (Auto) [place] # Seg Neutrophils % Seg Neuts % (Manual) 81.5 H Lymphocytes % (Manual) 4.0 L Monocytes % (Manual) Nucleated RBC % 1.0 H Seg Neutrophils # Seg Neutrophils # Man 36.7 H Lymphocytes # (Manual) Monocytes # (Manual) Eosinophils # (Manual) Basophils # (Manual) PT INR POC ABG pH ABG pH POC ABG pCO2 POC ABG pO2 ABG pO2 ABG O2 Saturation ABG Base Excess ABG Hemoglobin Oxyhemoglobin Sodium Potassium Chloride Carbon Dioxide BUN Creatinine Glucose POC Glucose 142 H Calcium Phosphorus Magnesium Iron TIBC Ferritin Total Bilirubin AST ALT Alkaline Phosphatase Total Creatine Kinase Troponin T C-Reactive Protein 34.20 H Total Protein Albumin Triglycerides HDL Cholesterol Miscellaneous Test Crossmatch 08/19/17 08/19/17 08/20/17 11:16 18:12 00:35 WBC RBC Hgb Hct MCV MCH RDW Plt Count Lymph % (Auto) [place] % (Auto) [place] # Seg Neutrophils % Seg Neuts % (Manual) Lymphocytes % (Manual) Monocytes % (Manual) Nucleated RBC % Seg Neutrophils # Seg Neutrophils # Man Lymphocytes # (Manual) Monocytes # (Manual) Eosinophils # (Manual) Basophils # (Manual) PT INR POC ABG pH ABG pH POC ABG pCO2 POC ABG pO2 ABG pO2 ABG O2 Saturation ABG Base Excess ABG Hemoglobin Oxyhemoglobin Sodium Potassium Chloride Carbon Dioxide BUN Creatinine Glucose POC Glucose 143 H 137 H 164 H Calcium Phosphorus Magnesium Iron TIBC Ferritin Total Bilirubin AST ALT Alkaline Phosphatase Total Creatine Kinase Troponin T C-Reactive Protein Total Protein Albumin Triglycerides HDL Cholesterol Miscellaneous Test Crossmatch 08/20/17 08/20/17 08/20/17 03:20 03:20 04:00 WBC 48.0 H* RBC 2.55 L Hgb 7.6 L Hct 23.4 L MCV MCH RDW 18.4 H Plt Count Lymph % (Auto) [place] % (Auto) [place] # Seg Neutrophils % Seg Neuts % (Manual) 90.0 H Lymphocytes % (Manual) 3.0 L Monocytes % (Manual) Nucleated RBC % Seg Neutrophils # Seg Neutrophils # Man 43.2 H Lymphocytes # (Manual) Monocytes # (Manual) 1.4 H Eosinophils # (Manual) 0.5 H Basophils # (Manual) PT INR POC ABG pH 7.499 H ABG pH POC ABG pCO2 29.1 L POC ABG pO2 ABG pO2 ABG O2 Saturation ABG Base Excess ABG Hemoglobin Oxyhemoglobin Sodium 135 L Potassium Chloride Carbon Dioxide BUN 28 H Creatinine 4.0 H Glucose 140 H POC Glucose Calcium 8.0 L Phosphorus 1.70 L Magnesium 1.60 L Iron TIBC Ferritin Total Bilirubin AST ALT Alkaline Phosphatase Total Creatine Kinase Troponin T C-Reactive Protein Total Protein Albumin Triglycerides HDL Cholesterol Miscellaneous Test Crossmatch 08/20/17 08/20/17 08/20/17 05:02 12:05 13:12 WBC RBC Hgb Hct MCV MCH RDW Plt Count Lymph % (Auto) [place] % (Auto) [place] # Seg Neutrophils % Seg Neuts % (Manual) Lymphocytes % (Manual) Monocytes % (Manual) Nucleated RBC % Seg Neutrophils # Seg Neutrophils # Man Lymphocytes # (Manual) Monocytes # (Manual) Eosinophils # (Manual) Basophils # (Manual) PT INR POC ABG pH 7.537 H ABG pH POC ABG pCO2 27.9 L POC ABG pO2 79 L ABG pO2 ABG O2 Saturation ABG Base Excess ABG Hemoglobin Oxyhemoglobin Sodium Potassium Chloride Carbon Dioxide BUN Creatinine Glucose POC Glucose 158 H 203 H Calcium Phosphorus Magnesium Iron TIBC Ferritin Total Bilirubin AST ALT Alkaline Phosphatase Total Creatine Kinase Troponin T C-Reactive Protein Total Protein Albumin Triglycerides HDL Cholesterol Miscellaneous Test Crossmatch 08/20/17 08/21/17 08/21/17 17:13 00:47 03:14 WBC RBC Hgb Hct MCV MCH RDW Plt Count Lymph % (Auto) [place] % (Auto) [place] # Seg Neutrophils % Seg Neuts % (Manual) Lymphocytes % (Manual) Monocytes % (Manual) Nucleated RBC % Seg Neutrophils # Seg Neutrophils # Man Lymphocytes # (Manual) Monocytes # (Manual) Eosinophils # (Manual) Basophils # (Manual) PT INR POC ABG pH 7.481 H ABG pH POC ABG pCO2 29.6 L POC ABG pO2 ABG pO2 ABG O2 Saturation ABG Base Excess ABG Hemoglobin Oxyhemoglobin Sodium Potassium Chloride Carbon Dioxide BUN Creatinine Glucose POC Glucose 188 H 109 H Calcium Phosphorus Magnesium Iron TIBC Ferritin Total Bilirubin AST ALT Alkaline Phosphatase Total Creatine Kinase Troponin T C-Reactive Protein Total Protein Albumin Triglycerides HDL Cholesterol Miscellaneous Test Crossmatch 08/21/17 08/21/17 08/21/17 05:05 06:50 06:50 WBC 44.7 H* RBC 2.41 L Hgb 7.1 L Hct 22.1 L MCV MCH RDW 18.3 H Plt Count Lymph % (Auto) [place] % (Auto) [place] # Seg Neutrophils % Seg Neuts % (Manual) 89.0 H Lymphocytes % (Manual) 0 L Monocytes % (Manual) Nucleated RBC % 1.0 H Seg Neutrophils # Seg Neutrophils # Man 39.8 H Lymphocytes # (Manual) 0.0 L Monocytes # (Manual) 1.3 H Eosinophils # (Manual) Basophils # (Manual) PT INR POC ABG pH ABG pH POC ABG pCO2 POC ABG pO2 ABG pO2 ABG O2 Saturation ABG Base Excess ABG Hemoglobin Oxyhemoglobin Sodium 135 L Potassium Chloride Carbon Dioxide BUN 39 H Creatinine 4.4 H Glucose 147 H POC Glucose 166 H Calcium 8.1 L Phosphorus Magnesium Iron TIBC Ferritin Total Bilirubin AST ALT < 5 L Alkaline Phosphatase 164 H Total Creatine Kinase Troponin T C-Reactive Protein Total Protein 4.7 L Albumin 1.4 L Triglycerides HDL Cholesterol Miscellaneous Test Crossmatch 08/21/17 08/21/17 08/21/17 08:00 12:21 17:02 WBC RBC Hgb Hct MCV MCH RDW Plt Count Lymph % (Auto) [place] % (Auto) [place] # Seg Neutrophils % Seg Neuts % (Manual) Lymphocytes % (Manual) Monocytes % (Manual) Nucleated RBC % Seg Neutrophils # Seg Neutrophils # Man Lymphocytes # (Manual) Monocytes # (Manual) Eosinophils # (Manual) Basophils # (Manual) PT INR POC ABG pH ABG pH POC ABG pCO2 POC ABG pO2 ABG pO2 ABG O2 Saturation ABG Base Excess ABG Hemoglobin Oxyhemoglobin Sodium Potassium Chloride Carbon Dioxide BUN Creatinine Glucose POC Glucose 147 H 135 H Calcium Phosphorus Magnesium Iron TIBC Ferritin Total Bilirubin AST ALT Alkaline Phosphatase Total Creatine Kinase Troponin T C-Reactive Protein Total Protein Albumin Triglycerides HDL Cholesterol Miscellaneous Test Crossmatch See Detail 08/21/17 08/22/17 08/22/17 23:38 03:40 03:40 WBC 42.5 H* RBC 2.88 L Hgb 8.5 L Hct 26.3 L MCV MCH RDW 17.9 H Plt Count Lymph % (Auto) [place] % (Auto) [place] # Seg Neutrophils % Seg Neuts % (Manual) Lymphocytes % (Manual) 5.0 L Monocytes % (Manual) Nucleated RBC % Seg Neutrophils # Seg Neutrophils # Man 19.6 H Lymphocytes # (Manual) Monocytes # (Manual) 2.6 H Eosinophils # (Manual) Basophils # (Manual) PT INR POC ABG pH ABG pH POC ABG pCO2 POC ABG pO2 ABG pO2 ABG O2 Saturation ABG Base Excess ABG Hemoglobin Oxyhemoglobin Sodium Potassium 3.3 L D Chloride Carbon Dioxide BUN 27 H Creatinine 2.9 H Glucose 144 H POC Glucose 251 H Calcium 8.0 L Phosphorus 2.40 L Magnesium Iron TIBC Ferritin Total Bilirubin AST ALT Alkaline Phosphatase Total Creatine Kinase Troponin T C-Reactive Protein Total Protein Albumin Triglycerides HDL Cholesterol Miscellaneous Test Crossmatch 08/22/17 08/22/17 08/22/17 06:37 08:50 11:25 WBC RBC Hgb Hct MCV MCH RDW Plt Count Lymph % (Auto) [place] % (Auto) [place] # Seg Neutrophils % Seg Neuts % (Manual) Lymphocytes % (Manual) Monocytes % (Manual) Nucleated RBC % Seg Neutrophils # Seg Neutrophils # Man Lymphocytes # (Manual) Monocytes # (Manual) Eosinophils # (Manual) Basophils # (Manual) PT INR POC ABG pH ABG pH POC ABG pCO2 POC ABG pO2 ABG pO2 ABG O2 Saturation ABG Base Excess ABG Hemoglobin Oxyhemoglobin Sodium Potassium Chloride Carbon Dioxide BUN Creatinine Glucose POC Glucose 152 H 175 H Calcium Phosphorus Magnesium Iron TIBC Ferritin Total Bilirubin AST ALT Alkaline Phosphatase Total Creatine Kinase Troponin T C-Reactive Protein Total Protein Albumin Triglycerides HDL Cholesterol Miscellaneous Test Flexitest 1 H Crossmatch 08/22/17 08/22/17 08/22/17 16:25 17:56 23:03 WBC RBC Hgb Hct MCV MCH RDW Plt Count Lymph % (Auto) [place] % (Auto) [place] # Seg Neutrophils % Seg Neuts % (Manual) Lymphocytes % (Manual) Monocytes % (Manual) Nucleated RBC % Seg Neutrophils # Seg Neutrophils # Man Lymphocytes # (Manual) Monocytes # (Manual) Eosinophils # (Manual) Basophils # (Manual) PT INR POC ABG pH ABG pH POC ABG pCO2 POC ABG pO2 ABG pO2 ABG O2 Saturation ABG Base Excess ABG Hemoglobin Oxyhemoglobin Sodium Potassium Chloride Carbon Dioxide BUN Creatinine Glucose POC Glucose 232 H 192 H Calcium Phosphorus Magnesium Iron TIBC Ferritin Total Bilirubin AST ALT Alkaline Phosphatase Total Creatine Kinase Troponin T C-Reactive Protein 30.70 H Total Protein Albumin Triglycerides HDL Cholesterol Miscellaneous Test Crossmatch 08/23/17 08/23/17 08/23/17 05:36 08:50 12:14 WBC RBC Hgb Hct MCV MCH RDW Plt Count Lymph % (Auto) [place] % (Auto) [place] # Seg Neutrophils % Seg Neuts % (Manual) Lymphocytes % (Manual) Monocytes % (Manual) Nucleated RBC % Seg Neutrophils # Seg Neutrophils # Man Lymphocytes # (Manual) Monocytes # (Manual) Eosinophils # (Manual) Basophils # (Manual) PT INR POC ABG pH ABG pH POC ABG pCO2 POC ABG pO2 ABG pO2 ABG O2 Saturation ABG Base Excess ABG Hemoglobin Oxyhemoglobin Sodium Potassium Chloride 107.1 H Carbon Dioxide BUN 49 H Creatinine 3.3 H Glucose 172 H POC Glucose 206 H 238 H Calcium Phosphorus Magnesium 2.40 H Iron TIBC Ferritin Total Bilirubin AST ALT Alkaline Phosphatase Total Creatine Kinase Troponin T C-Reactive Protein Total Protein Albumin Triglycerides HDL Cholesterol Miscellaneous Test Crossmatch 08/23/17 08/23/17 08/24/17 17:21 23:13 04:00 WBC 34.2 H RBC 2.86 L Hgb 8.4 L Hct 25.9 L MCV MCH RDW 17.9 H Plt Count Lymph % (Auto) [place] % (Auto) [place] # Seg Neutrophils % Seg Neuts % (Manual) 85.0 H Lymphocytes % (Manual) 0.5 L Monocytes % (Manual) Nucleated RBC % 1.0 H Seg Neutrophils # Seg Neutrophils # Man 29.1 H Lymphocytes # (Manual) 0.2 L Monocytes # (Manual) 2.4 H Eosinophils # (Manual) Basophils # (Manual) PT INR POC ABG pH ABG pH POC ABG pCO2 POC ABG pO2 ABG pO2 ABG O2 Saturation ABG Base Excess ABG Hemoglobin Oxyhemoglobin Sodium Potassium Chloride Carbon Dioxide BUN Creatinine Glucose POC Glucose 226 H 183 H Calcium Phosphorus Magnesium Iron TIBC Ferritin Total Bilirubin AST ALT Alkaline Phosphatase Total Creatine Kinase Troponin T C-Reactive Protein Total Protein Albumin Triglycerides HDL Cholesterol Miscellaneous Test Crossmatch 08/24/17 08/24/17 08/24/17 05:06 09:30 12:04 WBC RBC Hgb Hct MCV MCH RDW Plt Count Lymph % (Auto) [place] % (Auto) [place] # Seg Neutrophils % Seg Neuts % (Manual) Lymphocytes % (Manual) Monocytes % (Manual) Nucleated RBC % Seg Neutrophils # Seg Neutrophils # Man Lymphocytes # (Manual) Monocytes # (Manual) Eosinophils # (Manual) Basophils # (Manual) PT INR POC ABG pH ABG pH POC ABG pCO2 POC ABG pO2 ABG pO2 ABG O2 Saturation ABG Base Excess ABG Hemoglobin Oxyhemoglobin Sodium Potassium Chloride Carbon Dioxide BUN 46 H Creatinine 2.5 H Glucose 176 H POC Glucose 201 H 181 H Calcium Phosphorus Magnesium Iron TIBC Ferritin Total Bilirubin AST ALT Alkaline Phosphatase Total Creatine Kinase Troponin T C-Reactive Protein Total Protein Albumin Triglycerides HDL Cholesterol Miscellaneous Test Crossmatch 08/24/17 08/24/17 08/25/17 18:04 23:05 05:05 WBC RBC Hgb Hct MCV MCH RDW Plt Count Lymph % (Auto) [place] % (Auto) [place] # Seg Neutrophils % Seg Neuts % (Manual) Lymphocytes % (Manual) Monocytes % (Manual) Nucleated RBC % Seg Neutrophils # Seg Neutrophils # Man Lymphocytes # (Manual) Monocytes # (Manual) Eosinophils # (Manual) Basophils # (Manual) PT INR POC ABG pH ABG pH POC ABG pCO2 POC ABG pO2 ABG pO2 ABG O2 Saturation ABG Base Excess ABG Hemoglobin Oxyhemoglobin Sodium Potassium Chloride Carbon Dioxide BUN Creatinine Glucose POC Glucose 189 H 175 H 190 H Calcium Phosphorus Magnesium Iron TIBC Ferritin Total Bilirubin AST ALT Alkaline Phosphatase Total Creatine Kinase Troponin T C-Reactive Protein Total Protein Albumin Triglycerides HDL Cholesterol Miscellaneous Test Crossmatch 08/25/17 08/25/17 08/26/17 07:02 11:53 05:30 WBC 33.5 H RBC 2.47 L Hgb 7.3 L Hct 23.0 L MCV MCH RDW 21.3 H Plt Count Lymph % (Auto) [place] % (Auto) [place] # Seg Neutrophils % Seg Neuts % (Manual) 92.0 H Lymphocytes % (Manual) 1.0 L Monocytes % (Manual) Nucleated RBC % Seg Neutrophils # Seg Neutrophils # Man 30.8 H Lymphocytes # (Manual) 0.3 L Monocytes # (Manual) Eosinophils # (Manual) Basophils # (Manual) PT INR POC ABG pH ABG pH POC ABG pCO2 POC ABG pO2 ABG pO2 ABG O2 Saturation ABG Base Excess ABG Hemoglobin Oxyhemoglobin Sodium Potassium Chloride Carbon Dioxide BUN 32 H Creatinine 5.0 H D Glucose 117 H POC Glucose 191 H Calcium 8.0 L Phosphorus Magnesium Iron TIBC Ferritin Total Bilirubin AST ALT Alkaline Phosphatase Total Creatine Kinase Troponin T C-Reactive Protein Total Protein Albumin Triglycerides HDL Cholesterol Miscellaneous Test Crossmatch 08/26/17 08/26/17 08/26/17 05:30 06:44 13:26 WBC RBC Hgb Hct MCV MCH RDW Plt Count Lymph % (Auto) [place] % (Auto) [place] # Seg Neutrophils % Seg Neuts % (Manual) Lymphocytes % (Manual) Monocytes % (Manual) Nucleated RBC % Seg Neutrophils # Seg Neutrophils # Man Lymphocytes # (Manual) Monocytes # (Manual) Eosinophils # (Manual) Basophils # (Manual) PT INR POC ABG pH ABG pH POC ABG pCO2 POC ABG pO2 ABG pO2 ABG O2 Saturation ABG Base Excess ABG Hemoglobin Oxyhemoglobin Sodium Potassium 5.2 H Chloride Carbon Dioxide BUN 80 H Creatinine 3.4 H Glucose 193 H POC Glucose 232 H 207 H Calcium 8.3 L Phosphorus 6.80 H D Magnesium 2.60 H Iron TIBC Ferritin Total Bilirubin AST 135 H ALT Alkaline Phosphatase 211 H Total Creatine Kinase Troponin T C-Reactive Protein Total Protein 4.8 L Albumin 2.0 L Triglycerides HDL Cholesterol Miscellaneous Test Crossmatch 08/27/17 08/27/17 08/27/17 01:08 06:20 06:20 WBC 35.0 H RBC 2.75 L Hgb 8.4 L Hct 25.1 L MCV MCH RDW 21.8 H Plt Count Lymph % (Auto) [place] % (Auto) [place] # Seg Neutrophils % Seg Neuts % (Manual) Lymphocytes % (Manual) 4.5 L Monocytes % (Manual) Nucleated RBC % Seg Neutrophils # Seg Neutrophils # Man 31.9 H Lymphocytes # (Manual) Monocytes # (Manual) 1.2 H Eosinophils # (Manual) Basophils # (Manual) PT INR POC ABG pH ABG pH POC ABG pCO2 POC ABG pO2 ABG pO2 ABG O2 Saturation ABG Base Excess ABG Hemoglobin Oxyhemoglobin Sodium Potassium Chloride Carbon Dioxide BUN 61 H Creatinine 2.6 H Glucose 184 H POC Glucose 146 H Calcium Phosphorus 4.90 H D Magnesium Iron TIBC Ferritin Total Bilirubin AST ALT Alkaline Phosphatase Total Creatine Kinase Troponin T C-Reactive Protein Total Protein Albumin Triglycerides HDL Cholesterol Miscellaneous Test Crossmatch 08/27/17 08/27/17 08/27/17 07:01 09:17 12:52 WBC RBC Hgb Hct MCV MCH RDW Plt Count Lymph % (Auto) [place] % (Auto) [place] # Seg Neutrophils % Seg Neuts % (Manual) Lymphocytes % (Manual) Monocytes % (Manual) Nucleated RBC % Seg Neutrophils # Seg Neutrophils # Man Lymphocytes # (Manual) Monocytes # (Manual) Eosinophils # (Manual) Basophils # (Manual) PT INR POC ABG pH ABG pH POC ABG pCO2 POC ABG pO2 ABG pO2 ABG O2 Saturation ABG Base Excess ABG Hemoglobin Oxyhemoglobin Sodium Potassium Chloride Carbon Dioxide BUN Creatinine Glucose POC Glucose 165 H 198 H 218 H Calcium Phosphorus Magnesium Iron TIBC Ferritin Total Bilirubin AST ALT Alkaline Phosphatase Total Creatine Kinase Troponin T C-Reactive Protein Total Protein Albumin Triglycerides HDL Cholesterol Miscellaneous Test Crossmatch 08/27/17 08/28/17 08/28/17 17:27 02:13 06:46 WBC RBC Hgb Hct MCV MCH RDW Plt Count Lymph % (Auto) [place] % (Auto) [place] # Seg Neutrophils % Seg Neuts % (Manual) Lymphocytes % (Manual) Monocytes % (Manual) Nucleated RBC % Seg Neutrophils # Seg Neutrophils # Man Lymphocytes # (Manual) Monocytes # (Manual) Eosinophils # (Manual) Basophils # (Manual) PT INR POC ABG pH ABG pH POC ABG pCO2 POC ABG pO2 ABG pO2 ABG O2 Saturation ABG Base Excess ABG Hemoglobin Oxyhemoglobin Sodium Potassium Chloride Carbon Dioxide BUN Creatinine Glucose POC Glucose 151 H 155 H 230 H Calcium Phosphorus Magnesium Iron TIBC Ferritin Total Bilirubin AST ALT Alkaline Phosphatase Total Creatine Kinase Troponin T C-Reactive Protein Total Protein Albumin Triglycerides HDL Cholesterol Miscellaneous Test Crossmatch 08/28/17 08/28/17 08/28/17 06:53 06:53 08:19 WBC 31.1 H RBC 2.26 L Hgb 6.8 L Hct 20.9 L MCV MCH RDW 21.7 H Plt Count Lymph % (Auto) [place] % (Auto) [place] # Seg Neutrophils % Seg Neuts % (Manual) 83.0 H Lymphocytes % (Manual) 4.0 L Monocytes % (Manual) Nucleated RBC % Seg Neutrophils # Seg Neutrophils # Man 25.8 H Lymphocytes # (Manual) Monocytes # (Manual) Eosinophils # (Manual) Basophils # (Manual) PT INR POC ABG pH ABG pH POC ABG pCO2 POC ABG pO2 ABG pO2 ABG O2 Saturation ABG Base Excess ABG Hemoglobin Oxyhemoglobin Sodium Potassium Chloride Carbon Dioxide BUN 81 H Creatinine 3.4 H Glucose 218 H POC Glucose 239 H Calcium Phosphorus 4.90 H Magnesium Iron TIBC Ferritin Total Bilirubin AST ALT Alkaline Phosphatase Total Creatine Kinase Troponin T C-Reactive Protein Total Protein Albumin Triglycerides HDL Cholesterol Miscellaneous Test Crossmatch 08/28/17 08/28/17 08/28/17 11:56 13:05 13:29 WBC RBC Hgb Hct MCV MCH RDW Plt Count Lymph % (Auto) [place] % (Auto) [place] # Seg Neutrophils % Seg Neuts % (Manual) Lymphocytes % (Manual) Monocytes % (Manual) Nucleated RBC % Seg Neutrophils # Seg Neutrophils # Man Lymphocytes # (Manual) Monocytes # (Manual) Eosinophils # (Manual) Basophils # (Manual) PT 16.7 H INR 1.29 H POC ABG pH ABG pH POC ABG pCO2 POC ABG pO2 338 H ABG pO2 ABG O2 Saturation ABG Base Excess ABG Hemoglobin Oxyhemoglobin Sodium Potassium Chloride Carbon Dioxide BUN Creatinine Glucose POC Glucose Calcium Phosphorus Magnesium Iron TIBC Ferritin Total Bilirubin AST ALT Alkaline Phosphatase Total Creatine Kinase Troponin T C-Reactive Protein Total Protein Albumin Triglycerides HDL Cholesterol Miscellaneous Test Crossmatch See Detail 08/28/17 08/28/17 08/29/17 16:22 19:20 04:24 WBC RBC Hgb Hct MCV MCH RDW Plt Count Lymph % (Auto) [place] % (Auto) [place] # Seg Neutrophils % Seg Neuts % (Manual) Lymphocytes % (Manual) Monocytes % (Manual) Nucleated RBC % Seg Neutrophils # Seg Neutrophils # Man Lymphocytes # (Manual) Monocytes # (Manual) Eosinophils # (Manual) Basophils # (Manual) PT INR POC ABG pH 7.469 H ABG pH POC ABG pCO2 POC ABG pO2 240 H ABG pO2 ABG O2 Saturation ABG Base Excess ABG Hemoglobin Oxyhemoglobin Sodium Potassium Chloride Carbon Dioxide BUN Creatinine Glucose POC Glucose 209 H 195 H Calcium Phosphorus Magnesium Iron TIBC Ferritin Total Bilirubin AST ALT Alkaline Phosphatase Total Creatine Kinase Troponin T C-Reactive Protein Total Protein Albumin Triglycerides HDL Cholesterol Miscellaneous Test Crossmatch 08/29/17 08/29/17 08/29/17 04:30 04:30 12:07 WBC 44.9 H* RBC Hgb Hct MCV MCH RDW 23.1 H Plt Count Lymph % (Auto) [place] % (Auto) [place] # Seg Neutrophils % Seg Neuts % (Manual) 38.0 L Lymphocytes % (Manual) 10.0 L Monocytes % (Manual) 10.0 H Nucleated RBC % 6.0 H Seg Neutrophils # Seg Neutrophils # Man 17.1 H Lymphocytes # (Manual) Monocytes # (Manual) 4.5 H Eosinophils # (Manual) Basophils # (Manual) PT INR POC ABG pH ABG pH POC ABG pCO2 POC ABG pO2 ABG pO2 ABG O2 Saturation ABG Base Excess ABG Hemoglobin Oxyhemoglobin Sodium Potassium Chloride Carbon Dioxide BUN 61 H Creatinine 2.4 H Glucose 226 H POC Glucose 200 H Calcium Phosphorus Magnesium Iron TIBC Ferritin Total Bilirubin AST ALT Alkaline Phosphatase Total Creatine Kinase Troponin T C-Reactive Protein Total Protein Albumin Triglycerides HDL Cholesterol Miscellaneous Test Crossmatch 08/29/17 08/29/17 08/29/17 12:30 12:30 17:23 WBC RBC Hgb Hct MCV MCH RDW Plt Count Lymph % (Auto) [place] % (Auto) [place] # Seg Neutrophils % Seg Neuts % (Manual) Lymphocytes % (Manual) Monocytes % (Manual) Nucleated RBC % Seg Neutrophils # Seg Neutrophils # Man Lymphocytes # (Manual) Monocytes # (Manual) Eosinophils # (Manual) Basophils # (Manual) PT INR POC ABG pH ABG pH POC ABG pCO2 POC ABG pO2 ABG pO2 ABG O2 Saturation ABG Base Excess ABG Hemoglobin Oxyhemoglobin Sodium Potassium Chloride Carbon Dioxide BUN Creatinine Glucose POC Glucose 270 H Calcium Phosphorus Magnesium Iron TIBC Ferritin Total Bilirubin AST ALT Alkaline Phosphatase Total Creatine Kinase Troponin T C-Reactive Protein 19.10 H Total Protein Albumin Triglycerides HDL Cholesterol Miscellaneous Test Flexitest 1 H Crossmatch 08/30/17 08/30/17 08/30/17 00:10 01:30 03:31 WBC RBC Hgb Hct MCV MCH RDW Plt Count Lymph % (Auto) [place] % (Auto) [place] # Seg Neutrophils % Seg Neuts % (Manual) Lymphocytes % (Manual) Monocytes % (Manual) Nucleated RBC % Seg Neutrophils # Seg Neutrophils # Man Lymphocytes # (Manual) Monocytes # (Manual) Eosinophils # (Manual) Basophils # (Manual) PT INR POC ABG pH 7.168 L 7.335 L ABG pH POC ABG pCO2 72.8 H POC ABG pO2 257 H 117 H ABG pO2 ABG O2 Saturation ABG Base Excess ABG Hemoglobin Oxyhemoglobin Sodium Potassium Chloride Carbon Dioxide BUN Creatinine Glucose POC Glucose 245 H Calcium Phosphorus Magnesium Iron TIBC Ferritin Total Bilirubin AST ALT Alkaline Phosphatase Total Creatine Kinase Troponin T C-Reactive Protein Total Protein Albumin Triglycerides HDL Cholesterol Miscellaneous Test Crossmatch 08/30/17 08/30/17 08/30/17 05:20 05:20 05:20 WBC 40.9 H* RBC 3.64 L Hgb Hct MCV MCH RDW 24.3 H Plt Count Lymph % (Auto) [place] % (Auto) [place] # Seg Neutrophils % Seg Neuts % (Manual) 80.0 H Lymphocytes % (Manual) 3.0 L Monocytes % (Manual) Nucleated RBC % 1.0 H Seg Neutrophils # Seg Neutrophils # Man 32.7 H Lymphocytes # (Manual) Monocytes # (Manual) Eosinophils # (Manual) Basophils # (Manual) PT INR POC ABG pH ABG pH POC ABG pCO2 POC ABG pO2 ABG pO2 ABG O2 Saturation ABG Base Excess ABG Hemoglobin Oxyhemoglobin Sodium Potassium Chloride Carbon Dioxide BUN 83 H Creatinine 2.9 H Glucose 334 H POC Glucose 309 H Calcium Phosphorus Magnesium Iron TIBC Ferritin Total Bilirubin AST ALT Alkaline Phosphatase Total Creatine Kinase Troponin T C-Reactive Protein Total Protein Albumin Triglycerides HDL Cholesterol Miscellaneous Test Crossmatch 08/30/17 08/30/17 08/31/17 12:18 17:36 00:17 WBC RBC Hgb Hct MCV MCH RDW Plt Count Lymph % (Auto) [place] % (Auto) [place] # Seg Neutrophils % Seg Neuts % (Manual) Lymphocytes % (Manual) Monocytes % (Manual) Nucleated RBC % Seg Neutrophils # Seg Neutrophils # Man Lymphocytes # (Manual) Monocytes # (Manual) Eosinophils # (Manual) Basophils # (Manual) PT INR POC ABG pH ABG pH POC ABG pCO2 POC ABG pO2 ABG pO2 ABG O2 Saturation ABG Base Excess ABG Hemoglobin Oxyhemoglobin Sodium Potassium Chloride Carbon Dioxide BUN Creatinine Glucose POC Glucose 273 H 293 H 360 H Calcium Phosphorus Magnesium Iron TIBC Ferritin Total Bilirubin AST ALT Alkaline Phosphatase Total Creatine Kinase Troponin T C-Reactive Protein Total Protein Albumin Triglycerides HDL Cholesterol Miscellaneous Test Crossmatch 08/31/17 08/31/17 08/31/17 05:30 05:30 05:32 WBC 29.9 H RBC 2.89 L Hgb 8.2 L Hct 24.7 L D MCV MCH RDW 24.4 H Plt Count Lymph % (Auto) [place] % (Auto) [place] # Seg Neutrophils % Seg Neuts % (Manual) Lymphocytes % (Manual) 2.0 L Monocytes % (Manual) Nucleated RBC % 2.0 H Seg Neutrophils # Seg Neutrophils # Man 18.5 H Lymphocytes # (Manual) 0.6 L Monocytes # (Manual) 0.9 H Eosinophils # (Manual) Basophils # (Manual) PT INR POC ABG pH ABG pH POC ABG pCO2 POC ABG pO2 ABG pO2 ABG O2 Saturation ABG Base Excess ABG Hemoglobin Oxyhemoglobin Sodium Potassium Chloride Carbon Dioxide BUN 62 H Creatinine 2.2 H Glucose 245 H POC Glucose 257 H Calcium Phosphorus 2.10 L D Magnesium 1.60 L Iron TIBC Ferritin Total Bilirubin AST ALT Alkaline Phosphatase Total Creatine Kinase Troponin T C-Reactive Protein Total Protein Albumin Triglycerides HDL Cholesterol Miscellaneous Test Crossmatch 08/31/17 08/31/17 08/31/17 11:56 12:05 18:14 WBC 32.5 H RBC 3.19 L Hgb 8.8 L Hct 27.9 L MCV MCH RDW 24.9 H Plt Count Lymph % (Auto) [place] % (Auto) [place] # Seg Neutrophils % Seg Neuts % (Manual) Lymphocytes % (Manual) 1.0 L Monocytes % (Manual) 12.0 H Nucleated RBC % 1.0 H Seg Neutrophils # Seg Neutrophils # Man 13.3 H Lymphocytes # (Manual) 0.3 L Monocytes # (Manual) 3.9 H Eosinophils # (Manual) Basophils # (Manual) PT INR POC ABG pH ABG pH POC ABG pCO2 POC ABG pO2 ABG pO2 ABG O2 Saturation ABG Base Excess ABG Hemoglobin Oxyhemoglobin Sodium Potassium Chloride Carbon Dioxide BUN Creatinine Glucose POC Glucose 245 H Calcium Phosphorus Magnesium Iron TIBC Ferritin Total Bilirubin AST ALT Alkaline Phosphatase Total Creatine Kinase Troponin T C-Reactive Protein Total Protein Albumin Triglycerides HDL Cholesterol Miscellaneous Test Crossmatch See Detail 08/31/17 08/31/17 08/31/17 18:14 18:15 18:22 WBC RBC Hgb Hct MCV MCH RDW Plt Count Lymph % (Auto) [place] % (Auto) [place] # Seg Neutrophils % Seg Neuts % (Manual) Lymphocytes % (Manual) Monocytes % (Manual) Nucleated RBC % Seg Neutrophils # Seg Neutrophils # Man Lymphocytes # (Manual) Monocytes # (Manual) Eosinophils # (Manual) Basophils # (Manual) PT 15.1 H INR POC ABG pH ABG pH POC ABG pCO2 POC ABG pO2 ABG pO2 ABG O2 Saturation ABG Base Excess ABG Hemoglobin Oxyhemoglobin Sodium 136 L Potassium Chloride Carbon Dioxide 21 L BUN 69 H Creatinine 2.3 H Glucose 227 H POC Glucose 240 H Calcium Phosphorus 2.40 L Magnesium 1.50 L Iron TIBC Ferritin Total Bilirubin AST 143 H ALT 114 H Alkaline Phosphatase 267 H Total Creatine Kinase Troponin T C-Reactive Protein Total Protein 4.1 L Albumin 1.8 L Triglycerides HDL Cholesterol Miscellaneous Test Crossmatch 08/31/17 09/01/17 09/01/17 23:53 05:00 05:00 WBC 33.9 H RBC 2.85 L Hgb 7.8 L Hct 24.8 L MCV MCH 27 L RDW 23.9 H Plt Count Lymph % (Auto) [place] % (Auto) [place] # Seg Neutrophils % Seg Neuts % (Manual) Lymphocytes % (Manual) 5.0 L Monocytes % (Manual) Nucleated RBC % Seg Neutrophils # Seg Neutrophils # Man 23.1 H Lymphocytes # (Manual) Monocytes # (Manual) Eosinophils # (Manual) Basophils # (Manual) PT INR POC ABG pH ABG pH POC ABG pCO2 POC ABG pO2 ABG pO2 ABG O2 Saturation ABG Base Excess ABG Hemoglobin Oxyhemoglobin Sodium Potassium Chloride Carbon Dioxide BUN 51 H Creatinine 1.8 H Glucose 195 H POC Glucose 301 H Calcium Phosphorus 1.70 L D Magnesium 1.60 L Iron TIBC Ferritin Total Bilirubin AST 80 H ALT 82 H Alkaline Phosphatase 243 H Total Creatine Kinase Troponin T C-Reactive Protein Total Protein 4.2 L Albumin 1.7 L Triglycerides HDL Cholesterol Miscellaneous Test Crossmatch 09/01/17 09/01/17 09/01/17 05:20 05:47 11:37 WBC RBC Hgb Hct MCV MCH RDW Plt Count Lymph % (Auto) [place] % (Auto) [place] # Seg Neutrophils % Seg Neuts % (Manual) Lymphocytes % (Manual) Monocytes % (Manual) Nucleated RBC % Seg Neutrophils # Seg Neutrophils # Man Lymphocytes # (Manual) Monocytes # (Manual) Eosinophils # (Manual) Basophils # (Manual) PT INR POC ABG pH ABG pH 7.348 L POC ABG pCO2 POC ABG pO2 ABG pO2 70.2 L ABG O2 Saturation ABG Base Excess ABG Hemoglobin 7.5 L Oxyhemoglobin Sodium Potassium Chloride Carbon Dioxide BUN Creatinine Glucose POC Glucose 230 H 254 H Calcium Phosphorus Magnesium Iron TIBC Ferritin Total Bilirubin AST ALT Alkaline Phosphatase Total Creatine Kinase Troponin T C-Reactive Protein Total Protein Albumin Triglycerides HDL Cholesterol Miscellaneous Test Crossmatch 09/01/17 09/01/17 09/02/17 17:39 23:14 04:55 WBC RBC Hgb Hct MCV MCH RDW Plt Count Lymph % (Auto) [place] % (Auto) [place] # Seg Neutrophils % Seg Neuts % (Manual) Lymphocytes % (Manual) Monocytes % (Manual) Nucleated RBC % Seg Neutrophils # Seg Neutrophils # Man Lymphocytes # (Manual) Monocytes # (Manual) Eosinophils # (Manual) Basophils # (Manual) PT INR POC ABG pH ABG pH POC ABG pCO2 POC ABG pO2 ABG pO2 124.8 H ABG O2 Saturation ABG Base Excess -2.9 L ABG Hemoglobin 5.8 L Oxyhemoglobin Sodium Potassium Chloride Carbon Dioxide BUN Creatinine Glucose POC Glucose 297 H 291 H Calcium Phosphorus Magnesium Iron TIBC Ferritin Total Bilirubin AST ALT Alkaline Phosphatase Total Creatine Kinase Troponin T C-Reactive Protein Total Protein Albumin Triglycerides HDL Cholesterol Miscellaneous Test Crossmatch 09/02/17 09/02/17 09/02/17 05:31 06:10 11:58 WBC RBC Hgb Hct MCV MCH RDW Plt Count Lymph % (Auto) [place] % (Auto) [place] # Seg Neutrophils % Seg Neuts % (Manual) Lymphocytes % (Manual) Monocytes % (Manual) Nucleated RBC % Seg Neutrophils # Seg Neutrophils # Man Lymphocytes # (Manual) Monocytes # (Manual) Eosinophils # (Manual) Basophils # (Manual) PT INR POC ABG pH ABG pH POC ABG pCO2 POC ABG pO2 ABG pO2 ABG O2 Saturation ABG Base Excess ABG Hemoglobin Oxyhemoglobin Sodium Potassium Chloride Carbon Dioxide BUN 68 H Creatinine 2.2 H Glucose 369 H POC Glucose 245 H 333 H Calcium 8.2 L Phosphorus Magnesium Iron TIBC Ferritin Total Bilirubin AST ALT Alkaline Phosphatase Total Creatine Kinase Troponin T C-Reactive Protein Total Protein Albumin Triglycerides HDL Cholesterol Miscellaneous Test Crossmatch 09/02/17 09/02/17 09/03/17 15:37 23:50 04:00 WBC RBC Hgb Hct MCV MCH RDW Plt Count Lymph % (Auto) [place] % (Auto) [place] # Seg Neutrophils % Seg Neuts % (Manual) Lymphocytes % (Manual) Monocytes % (Manual) Nucleated RBC % Seg Neutrophils # Seg Neutrophils # Man Lymphocytes # (Manual) Monocytes # (Manual) Eosinophils # (Manual) Basophils # (Manual) PT INR POC ABG pH ABG pH POC ABG pCO2 POC ABG pO2 ABG pO2 ABG O2 Saturation ABG Base Excess ABG Hemoglobin Oxyhemoglobin Sodium Potassium Chloride Carbon Dioxide BUN 59 H Creatinine 1.9 H Glucose 231 H POC Glucose 314 H 240 H Calcium 8.0 L Phosphorus Magnesium Iron TIBC Ferritin Total Bilirubin AST ALT Alkaline Phosphatase 265 H Total Creatine Kinase Troponin T C-Reactive Protein Total Protein 4.4 L Albumin 1.7 L Triglycerides 180 H HDL Cholesterol Miscellaneous Test Crossmatch 09/03/17 09/03/17 09/03/17 05:00 05:32 11:52 WBC 41.5 H* RBC 2.46 L Hgb 6.9 L Hct 21.3 L MCV MCH RDW 24.9 H Plt Count Lymph % (Auto) [place] % (Auto) [place] # Seg Neutrophils % Seg Neuts % (Manual) Lymphocytes % (Manual) 3.0 L Monocytes % (Manual) 9.5 H Nucleated RBC % 1.5 H Seg Neutrophils # Seg Neutrophils # Man 28.8 H Lymphocytes # (Manual) Monocytes # (Manual) 3.9 H Eosinophils # (Manual) Basophils # (Manual) PT INR POC ABG pH ABG pH POC ABG pCO2 POC ABG pO2 ABG pO2 ABG O2 Saturation ABG Base Excess ABG Hemoglobin Oxyhemoglobin Sodium Potassium Chloride Carbon Dioxide BUN Creatinine Glucose POC Glucose 188 H 285 H Calcium Phosphorus Magnesium Iron TIBC Ferritin Total Bilirubin AST ALT Alkaline Phosphatase Total Creatine Kinase Troponin T C-Reactive Protein Total Protein Albumin Triglycerides HDL Cholesterol Miscellaneous Test Crossmatch 09/03/17 09/03/17 09/03/17 16:55 17:44 23:56 WBC RBC Hgb Hct MCV MCH RDW Plt Count Lymph % (Auto) [place] % (Auto) [place] # Seg Neutrophils % Seg Neuts % (Manual) Lymphocytes % (Manual) Monocytes % (Manual) Nucleated RBC % Seg Neutrophils # Seg Neutrophils # Man Lymphocytes # (Manual) Monocytes # (Manual) Eosinophils # (Manual) Basophils # (Manual) PT INR POC ABG pH ABG pH POC ABG pCO2 POC ABG pO2 ABG pO2 ABG O2 Saturation ABG Base Excess ABG Hemoglobin Oxyhemoglobin Sodium Potassium Chloride Carbon Dioxide BUN Creatinine Glucose POC Glucose 217 H 193 H Calcium Phosphorus Magnesium Iron TIBC Ferritin Total Bilirubin AST ALT Alkaline Phosphatase Total Creatine Kinase Troponin T C-Reactive Protein Total Protein Albumin Triglycerides HDL Cholesterol Miscellaneous Test Crossmatch See Detail 09/03/17 09/04/17 09/04/17 Unknown 03:47 04:32 WBC 44.7 H* RBC 3.12 L Hgb 8.7 L Hct 26.7 L MCV MCH RDW 23.5 H Plt Count Lymph % (Auto) [place] % (Auto) [place] # Seg Neutrophils % Seg Neuts % (Manual) Lymphocytes % (Manual) 4.0 L Monocytes % (Manual) Nucleated RBC % 2.0 H Seg Neutrophils # Seg Neutrophils # Man 30.8 H Lymphocytes # (Manual) Monocytes # (Manual) 2.2 H Eosinophils # (Manual) Basophils # (Manual) PT INR POC ABG pH ABG pH POC ABG pCO2 POC ABG pO2 ABG pO2 133.4 H 135.0 H ABG O2 Saturation ABG Base Excess -2.5 L ABG Hemoglobin 5.8 L 7.9 L Oxyhemoglobin Sodium Potassium Chloride Carbon Dioxide BUN Creatinine Glucose POC Glucose Calcium Phosphorus Magnesium Iron TIBC Ferritin Total Bilirubin AST ALT Alkaline Phosphatase Total Creatine Kinase Troponin T C-Reactive Protein Total Protein Albumin Triglycerides HDL Cholesterol Miscellaneous Test Crossmatch 09/04/17 09/04/17 09/04/17 04:32 05:48 10:43 WBC RBC Hgb Hct MCV MCH RDW Plt Count Lymph % (Auto) [place] % (Auto) [place] # Seg Neutrophils % Seg Neuts % (Manual) Lymphocytes % (Manual) Monocytes % (Manual) Nucleated RBC % Seg Neutrophils # Seg Neutrophils # Man Lymphocytes # (Manual) Monocytes # (Manual) Eosinophils # (Manual) Basophils # (Manual) PT INR POC ABG pH ABG pH POC ABG pCO2 POC ABG pO2 ABG pO2 ABG O2 Saturation ABG Base Excess ABG Hemoglobin Oxyhemoglobin Sodium 136 L Potassium 5.2 H D Chloride 94.2 L Carbon Dioxide BUN 71 H Creatinine 2.3 H Glucose 235 H POC Glucose 329 H Calcium 8.3 L Phosphorus Magnesium Iron TIBC Ferritin Total Bilirubin AST ALT Alkaline Phosphatase Total Creatine Kinase Troponin T C-Reactive Protein Total Protein Albumin Triglycerides HDL Cholesterol Miscellaneous Test Flexitest 1 H Crossmatch 09/04/17 09/04/17 09/05/17 12:38 17:30 00:15 WBC RBC Hgb Hct MCV MCH RDW Plt Count Lymph % (Auto) [place] % (Auto) [place] # Seg Neutrophils % Seg Neuts % (Manual) Lymphocytes % (Manual) Monocytes % (Manual) Nucleated RBC % Seg Neutrophils # Seg Neutrophils # Man Lymphocytes # (Manual) Monocytes # (Manual) Eosinophils # (Manual) Basophils # (Manual) PT INR POC ABG pH ABG pH POC ABG pCO2 POC ABG pO2 ABG pO2 ABG O2 Saturation ABG Base Excess ABG Hemoglobin Oxyhemoglobin Sodium Potassium Chloride Carbon Dioxide BUN Creatinine Glucose POC Glucose 444 H 331 H 362 H Calcium Phosphorus Magnesium Iron TIBC Ferritin Total Bilirubin AST ALT Alkaline Phosphatase Total Creatine Kinase Troponin T C-Reactive Protein Total Protein Albumin Triglycerides HDL Cholesterol Miscellaneous Test Crossmatch 09/05/17 09/05/17 09/05/17 03:55 03:55 12:12 WBC 35.3 H RBC 2.87 L Hgb 8.1 L Hct 24.6 L MCV MCH RDW 23.3 H Plt Count Lymph % (Auto) [place] % (Auto) [place] # Seg Neutrophils % Seg Neuts % (Manual) 89.5 H Lymphocytes % (Manual) 3.0 L Monocytes % (Manual) Nucleated RBC % 2.5 H Seg Neutrophils # Seg Neutrophils # Man 31.6 H Lymphocytes # (Manual) 1.1 L Monocytes # (Manual) Eosinophils # (Manual) Basophils # (Manual) PT INR POC ABG pH ABG pH POC ABG pCO2 POC ABG pO2 ABG pO2 ABG O2 Saturation ABG Base Excess ABG Hemoglobin Oxyhemoglobin Sodium 136 L Potassium Chloride 94.7 L Carbon Dioxide BUN 55 H Creatinine 1.8 H Glucose 193 H POC Glucose 344 H Calcium 8.1 L Phosphorus Magnesium Iron TIBC Ferritin Total Bilirubin AST ALT Alkaline Phosphatase Total Creatine Kinase Troponin T C-Reactive Protein Total Protein Albumin Triglycerides HDL Cholesterol Miscellaneous Test Crossmatch 09/05/17 09/05/17 09/05/17 14:32 15:32 16:41 WBC RBC Hgb Hct MCV MCH RDW Plt Count Lymph % (Auto) [place] % (Auto) [place] # Seg Neutrophils % Seg Neuts % (Manual) Lymphocytes % (Manual) Monocytes % (Manual) Nucleated RBC % Seg Neutrophils # Seg Neutrophils # Man Lymphocytes # (Manual) Monocytes # (Manual) Eosinophils # (Manual) Basophils # (Manual) PT INR POC ABG pH ABG pH POC ABG pCO2 POC ABG pO2 ABG pO2 ABG O2 Saturation ABG Base Excess ABG Hemoglobin Oxyhemoglobin Sodium Potassium Chloride Carbon Dioxide BUN Creatinine Glucose POC Glucose 265 H 145 H 188 H Calcium Phosphorus Magnesium Iron TIBC Ferritin Total Bilirubin AST ALT Alkaline Phosphatase Total Creatine Kinase Troponin T C-Reactive Protein Total Protein Albumin Triglycerides HDL Cholesterol Miscellaneous Test Crossmatch 09/05/17 09/05/17 09/05/17 17:28 18:38 20:10 WBC RBC Hgb Hct MCV MCH RDW Plt Count Lymph % (Auto) [place] % (Auto) [place] # Seg Neutrophils % Seg Neuts % (Manual) Lymphocytes % (Manual) Monocytes % (Manual) Nucleated RBC % Seg Neutrophils # Seg Neutrophils # Man Lymphocytes # (Manual) Monocytes # (Manual) Eosinophils # (Manual) Basophils # (Manual) PT INR POC ABG pH ABG pH POC ABG pCO2 POC ABG pO2 ABG pO2 ABG O2 Saturation ABG Base Excess ABG Hemoglobin Oxyhemoglobin Sodium Potassium Chloride Carbon Dioxide BUN Creatinine Glucose POC Glucose 246 H 271 H 165 H Calcium Phosphorus Magnesium Iron TIBC Ferritin Total Bilirubin AST ALT Alkaline Phosphatase Total Creatine Kinase Troponin T C-Reactive Protein Total Protein Albumin Triglycerides HDL Cholesterol Miscellaneous Test Crossmatch 09/05/17 09/05/17 09/06/17 21:06 23:07 00:10 WBC RBC Hgb Hct MCV MCH RDW Plt Count Lymph % (Auto) [place] % (Auto) [place] # Seg Neutrophils % Seg Neuts % (Manual) Lymphocytes % (Manual) Monocytes % (Manual) Nucleated RBC % Seg Neutrophils # Seg Neutrophils # Man Lymphocytes # (Manual) Monocytes # (Manual) Eosinophils # (Manual) Basophils # (Manual) PT INR POC ABG pH ABG pH POC ABG pCO2 POC ABG pO2 ABG pO2 ABG O2 Saturation ABG Base Excess ABG Hemoglobin Oxyhemoglobin Sodium Potassium Chloride Carbon Dioxide BUN Creatinine Glucose POC Glucose 134 H 135 H 147 H Calcium Phosphorus Magnesium Iron TIBC Ferritin Total Bilirubin AST ALT Alkaline Phosphatase Total Creatine Kinase Troponin T C-Reactive Protein Total Protein Albumin Triglycerides HDL Cholesterol Miscellaneous Test Crossmatch 09/06/17 09/06/17 09/06/17 01:08 02:01 03:08 WBC RBC Hgb Hct MCV MCH RDW Plt Count Lymph % (Auto) [place] % (Auto) [place] # Seg Neutrophils % Seg Neuts % (Manual) Lymphocytes % (Manual) Monocytes % (Manual) Nucleated RBC % Seg Neutrophils # Seg Neutrophils # Man Lymphocytes # (Manual) Monocytes # (Manual) Eosinophils # (Manual) Basophils # (Manual) PT INR POC ABG pH ABG pH POC ABG pCO2 POC ABG pO2 ABG pO2 ABG O2 Saturation ABG Base Excess ABG Hemoglobin Oxyhemoglobin Sodium Potassium Chloride Carbon Dioxide BUN Creatinine Glucose POC Glucose 133 H 146 H 135 H Calcium Phosphorus Magnesium Iron TIBC Ferritin Total Bilirubin AST ALT Alkaline Phosphatase Total Creatine Kinase Troponin T C-Reactive Protein Total Protein Albumin Triglycerides HDL Cholesterol Miscellaneous Test Crossmatch 09/06/17 09/06/17 09/06/17 05:30 05:30 05:30 WBC 38.6 H RBC 2.95 L Hgb 8.3 L Hct 25.3 L MCV MCH RDW 22.2 H Plt Count Lymph % (Auto) [place] % (Auto) [place] # Seg Neutrophils % Seg Neuts % (Manual) Lymphocytes % (Manual) 2.0 L Monocytes % (Manual) Nucleated RBC % 5.0 H Seg Neutrophils # Seg Neutrophils # Man 25.9 H Lymphocytes # (Manual) 0.8 L Monocytes # (Manual) 1.9 H Eosinophils # (Manual) Basophils # (Manual) PT INR POC ABG pH ABG pH POC ABG pCO2 POC ABG pO2 ABG pO2 ABG O2 Saturation ABG Base Excess ABG Hemoglobin Oxyhemoglobin Sodium 135 L Potassium Chloride 93.5 L Carbon Dioxide BUN 82 H Creatinine 2.3 H Glucose 148 H POC Glucose Calcium Phosphorus Magnesium Iron TIBC Ferritin Total Bilirubin AST ALT Alkaline Phosphatase Total Creatine Kinase Troponin T C-Reactive Protein 2.80 H Total Protein Albumin Triglycerides HDL Cholesterol Miscellaneous Test Crossmatch 09/06/17 09/06/17 09/06/17 05:48 08:04 09:06 WBC RBC Hgb Hct MCV MCH RDW Plt Count Lymph % (Auto) [place] % (Auto) [place] # Seg Neutrophils % Seg Neuts % (Manual) Lymphocytes % (Manual) Monocytes % (Manual) Nucleated RBC % Seg Neutrophils # Seg Neutrophils # Man Lymphocytes # (Manual) Monocytes # (Manual) Eosinophils # (Manual) Basophils # (Manual) PT INR POC ABG pH ABG pH POC ABG pCO2 POC ABG pO2 ABG pO2 ABG O2 Saturation ABG Base Excess ABG Hemoglobin Oxyhemoglobin Sodium Potassium Chloride Carbon Dioxide BUN Creatinine Glucose POC Glucose 152 H 164 H 172 H Calcium Phosphorus Magnesium Iron TIBC Ferritin Total Bilirubin AST ALT Alkaline Phosphatase Total Creatine Kinase Troponin T C-Reactive Protein Total Protein Albumin Triglycerides HDL Cholesterol Miscellaneous Test Crossmatch 09/06/17 09/06/17 09/06/17 09:57 10:19 10:57 WBC RBC Hgb Hct MCV MCH RDW Plt Count Lymph % (Auto) [place] % (Auto) [place] # Seg Neutrophils % Seg Neuts % (Manual) Lymphocytes % (Manual) Monocytes % (Manual) Nucleated RBC % Seg Neutrophils # Seg Neutrophils # Man Lymphocytes # (Manual) Monocytes # (Manual) Eosinophils # (Manual) Basophils # (Manual) PT INR POC ABG pH ABG pH POC ABG pCO2 POC ABG pO2 ABG pO2 ABG O2 Saturation ABG Base Excess ABG Hemoglobin Oxyhemoglobin Sodium Potassium Chloride Carbon Dioxide BUN Creatinine Glucose POC Glucose 186 H 162 H Calcium Phosphorus Magnesium Iron TIBC Ferritin Total Bilirubin AST ALT Alkaline Phosphatase Total Creatine Kinase Troponin T C-Reactive Protein Total Protein Albumin Triglycerides HDL Cholesterol Miscellaneous Test Flexitest 1 H Crossmatch 09/06/17 09/06/17 09/06/17 13:12 13:40 17:36 WBC RBC Hgb 8.9 L Hct 28.5 L MCV MCH RDW Plt Count Lymph % (Auto) [place] % (Auto) [place] # Seg Neutrophils % Seg Neuts % (Manual) Lymphocytes % (Manual) Monocytes % (Manual) Nucleated RBC % Seg Neutrophils # Seg Neutrophils # Man Lymphocytes # (Manual) Monocytes # (Manual) Eosinophils # (Manual) Basophils # (Manual) PT INR POC ABG pH ABG pH POC ABG pCO2 POC ABG pO2 ABG pO2 ABG O2 Saturation ABG Base Excess ABG Hemoglobin Oxyhemoglobin Sodium Potassium Chloride Carbon Dioxide BUN Creatinine Glucose POC Glucose 166 H 161 H Calcium Phosphorus Magnesium Iron TIBC Ferritin Total Bilirubin AST ALT Alkaline Phosphatase Total Creatine Kinase Troponin T C-Reactive Protein Total Protein Albumin Triglycerides HDL Cholesterol Miscellaneous Test Crossmatch 09/07/17 09/07/17 09/07/17 00:13 03:50 03:50 WBC 47.0 H* RBC 2.81 L Hgb 8.1 L Hct 24.1 L MCV MCH RDW 22.5 H Plt Count Lymph % (Auto) [place] % (Auto) [place] # Seg Neutrophils % Seg Neuts % (Manual) Lymphocytes % (Manual) 9.0 L Monocytes % (Manual) Nucleated RBC % 6.0 H Seg Neutrophils # Seg Neutrophils # Man 27.3 H Lymphocytes # (Manual) Monocytes # (Manual) 0.9 H Eosinophils # (Manual) 1.9 H Basophils # (Manual) PT INR POC ABG pH ABG pH POC ABG pCO2 POC ABG pO2 ABG pO2 ABG O2 Saturation ABG Base Excess ABG Hemoglobin Oxyhemoglobin Sodium 136 L Potassium Chloride 96.3 L Carbon Dioxide BUN 61 H Creatinine 1.7 H Glucose 132 H POC Glucose 183 H Calcium 7.8 L Phosphorus Magnesium Iron TIBC Ferritin Total Bilirubin AST ALT Alkaline Phosphatase Total Creatine Kinase Troponin T C-Reactive Protein Total Protein Albumin Triglycerides HDL Cholesterol Miscellaneous Test Crossmatch 09/07/17 09/07/17 09/07/17 05:12 05:23 11:48 WBC RBC Hgb Hct MCV MCH RDW Plt Count Lymph % (Auto) [place] % (Auto) [place] # Seg Neutrophils % Seg Neuts % (Manual) Lymphocytes % (Manual) Monocytes % (Manual) Nucleated RBC % Seg Neutrophils # Seg Neutrophils # Man Lymphocytes # (Manual) Monocytes # (Manual) Eosinophils # (Manual) Basophils # (Manual) PT INR POC ABG pH ABG pH POC ABG pCO2 POC ABG pO2 ABG pO2 ABG O2 Saturation ABG Base Excess ABG Hemoglobin 7.7 L Oxyhemoglobin 94.8 L Sodium Potassium Chloride Carbon Dioxide BUN Creatinine Glucose POC Glucose 162 H 200 H Calcium Phosphorus Magnesium Iron TIBC Ferritin Total Bilirubin AST ALT Alkaline Phosphatase Total Creatine Kinase Troponin T C-Reactive Protein Total Protein Albumin Triglycerides HDL Cholesterol Miscellaneous Test Crossmatch 09/07/17 09/07/17 09/08/17 17:07 18:21 00:06 WBC RBC Hgb Hct MCV MCH RDW Plt Count Lymph % (Auto) [place] % (Auto) [place] # Seg Neutrophils % Seg Neuts % (Manual) Lymphocytes % (Manual) Monocytes % (Manual) Nucleated RBC % Seg Neutrophils # Seg Neutrophils # Man Lymphocytes # (Manual) Monocytes # (Manual) Eosinophils # (Manual) Basophils # (Manual) PT INR POC ABG pH ABG pH POC ABG pCO2 POC ABG pO2 ABG pO2 ABG O2 Saturation ABG Base Excess ABG Hemoglobin Oxyhemoglobin Sodium Potassium Chloride Carbon Dioxide BUN Creatinine Glucose POC Glucose 181 H 168 H Calcium Phosphorus Magnesium Iron TIBC Ferritin Total Bilirubin AST ALT Alkaline Phosphatase Total Creatine Kinase Troponin T C-Reactive Protein Total Protein Albumin Triglycerides HDL Cholesterol Miscellaneous Test Crossmatch See Detail 09/08/17 09/08/17 09/08/17 04:05 04:05 04:41 WBC 49.7 H* RBC 2.58 L Hgb 7.3 L Hct 22.7 L MCV MCH RDW 22.5 H Plt Count Lymph % (Auto) [place] % (Auto) [place] # Seg Neutrophils % Seg Neuts % (Manual) 90.5 H Lymphocytes % (Manual) 1.5 L Monocytes % (Manual) Nucleated RBC % Seg Neutrophils # Seg Neutrophils # Man 45.0 H Lymphocytes # (Manual) 0.7 L Monocytes # (Manual) 1.7 H Eosinophils # (Manual) Basophils # (Manual) PT INR POC ABG pH ABG pH POC ABG pCO2 POC ABG pO2 ABG pO2 ABG O2 Saturation ABG Base Excess ABG Hemoglobin Oxyhemoglobin Sodium 132 L Potassium Chloride 92.1 L Carbon Dioxide BUN 82 H Creatinine 2.2 H Glucose 162 H POC Glucose 235 H Calcium 8.3 L Phosphorus 5.20 H D Magnesium Iron TIBC Ferritin Total Bilirubin AST ALT Alkaline Phosphatase 199 H Total Creatine Kinase Troponin T C-Reactive Protein Total Protein 4.5 L Albumin 1.7 L Triglycerides HDL Cholesterol Miscellaneous Test Crossmatch 09/08/17 09/08/17 09/08/17 09:21 11:52 17:38 WBC RBC Hgb Hct MCV MCH RDW Plt Count Lymph % (Auto) [place] % (Auto) [place] # Seg Neutrophils % Seg Neuts % (Manual) Lymphocytes % (Manual) Monocytes % (Manual) Nucleated RBC % Seg Neutrophils # Seg Neutrophils # Man Lymphocytes # (Manual) Monocytes # (Manual) Eosinophils # (Manual) Basophils # (Manual) PT INR POC ABG pH ABG pH POC ABG pCO2 POC ABG pO2 ABG pO2 218.5 H ABG O2 Saturation 99.3 H ABG Base Excess -3.5 L ABG Hemoglobin 7.7 L Oxyhemoglobin Sodium Potassium Chloride Carbon Dioxide BUN Creatinine Glucose POC Glucose 220 H 194 H Calcium Phosphorus Magnesium Iron TIBC Ferritin Total Bilirubin AST ALT Alkaline Phosphatase Total Creatine Kinase Troponin T C-Reactive Protein Total Protein Albumin Triglycerides HDL Cholesterol Miscellaneous Test Crossmatch 09/09/17 09/09/17 09/09/17 00:24 03:37 03:37 WBC 33.5 H RBC 2.36 L Hgb 6.7 L Hct 20.9 L MCV MCH RDW 22.7 H Plt Count Lymph % (Auto) [place] % (Auto) [place] # Seg Neutrophils % Seg Neuts % (Manual) Lymphocytes % (Manual) Monocytes % (Manual) Nucleated RBC % Seg Neutrophils # Seg Neutrophils # Man Lymphocytes # (Manual) Monocytes # (Manual) Eosinophils # (Manual) Basophils # (Manual) PT INR POC ABG pH ABG pH POC ABG pCO2 POC ABG pO2 ABG pO2 ABG O2 Saturation ABG Base Excess ABG Hemoglobin Oxyhemoglobin Sodium 132 L Potassium Chloride 91.6 L Carbon Dioxide 21 L BUN 101 H Creatinine 2.6 H Glucose 156 H POC Glucose 182 H Calcium 8.3 L Phosphorus 5.90 H Magnesium 2.60 H Iron TIBC Ferritin Total Bilirubin AST ALT Alkaline Phosphatase Total Creatine Kinase Troponin T C-Reactive Protein Total Protein Albumin Triglycerides HDL Cholesterol Miscellaneous Test Crossmatch 09/09/17 09/09/17 09/09/17 05:29 12:03 18:05 WBC RBC Hgb Hct MCV MCH RDW Plt Count Lymph % (Auto) [place] % (Auto) [place] # Seg Neutrophils % Seg Neuts % (Manual) Lymphocytes % (Manual) Monocytes % (Manual) Nucleated RBC % Seg Neutrophils # Seg Neutrophils # Man Lymphocytes # (Manual) Monocytes # (Manual) Eosinophils # (Manual) Basophils # (Manual) PT INR POC ABG pH ABG pH POC ABG pCO2 POC ABG pO2 ABG pO2 ABG O2 Saturation ABG Base Excess ABG Hemoglobin Oxyhemoglobin Sodium Potassium Chloride Carbon Dioxide BUN Creatinine Glucose POC Glucose 168 H 143 H 173 H Calcium Phosphorus Magnesium Iron TIBC Ferritin Total Bilirubin AST ALT Alkaline Phosphatase Total Creatine Kinase Troponin T C-Reactive Protein Total Protein Albumin Triglycerides HDL Cholesterol Miscellaneous Test Crossmatch 09/09/17 09/09/17 09/10/17 23:30 Unknown 05:04 WBC RBC Hgb Hct MCV MCH RDW Plt Count Lymph % (Auto) [place] % (Auto) [place] # Seg Neutrophils % Seg Neuts % (Manual) Lymphocytes % (Manual) Monocytes % (Manual) Nucleated RBC % Seg Neutrophils # Seg Neutrophils # Man Lymphocytes # (Manual) Monocytes # (Manual) Eosinophils # (Manual) Basophils # (Manual) PT INR POC ABG pH ABG pH 7.323 L POC ABG pCO2 POC ABG pO2 ABG pO2 94.1 H ABG O2 Saturation ABG Base Excess -4.8 L ABG Hemoglobin 8.0 L Oxyhemoglobin 94.9 L Sodium Potassium Chloride Carbon Dioxide BUN Creatinine Glucose POC Glucose 212 H 155 H Calcium Phosphorus Magnesium Iron TIBC Ferritin Total Bilirubin AST ALT Alkaline Phosphatase Total Creatine Kinase Troponin T C-Reactive Protein Total Protein Albumin Triglycerides HDL Cholesterol Miscellaneous Test Crossmatch 09/10/17 09/10/17 09/10/17 07:00 09:55 12:22 WBC 24.7 H RBC 2.62 L Hgb 7.5 L Hct 22.5 L MCV MCH RDW 20.8 H Plt Count Lymph % (Auto) [place] % (Auto) [place] # Seg Neutrophils % Seg Neuts % (Manual) Lymphocytes % (Manual) Monocytes % (Manual) Nucleated RBC % Seg Neutrophils # Seg Neutrophils # Man Lymphocytes # (Manual) Monocytes # (Manual) Eosinophils # (Manual) Basophils # (Manual) PT INR POC ABG pH ABG pH POC ABG pCO2 POC ABG pO2 ABG pO2 ABG O2 Saturation ABG Base Excess ABG Hemoglobin Oxyhemoglobin Sodium Potassium Chloride 97.9 L Carbon Dioxide BUN 78 H Creatinine 2.0 H Glucose 126 H POC Glucose 183 H Calcium 8.2 L Phosphorus Magnesium Iron TIBC Ferritin Total Bilirubin AST ALT Alkaline Phosphatase Total Creatine Kinase Troponin T C-Reactive Protein Total Protein Albumin Triglycerides HDL Cholesterol Miscellaneous Test Crossmatch 09/11/17 09/11/17 09/11/17 00:08 03:50 05:28 WBC 21.6 H RBC 2.52 L Hgb 7.4 L Hct 22.2 L MCV MCH RDW 21.5 H Plt Count Lymph % (Auto) [place] % (Auto) [place] # Seg Neutrophils % Seg Neuts % (Manual) 92.0 H Lymphocytes % (Manual) 3.0 L Monocytes % (Manual) Nucleated RBC % Seg Neutrophils # Seg Neutrophils # Man 19.9 H Lymphocytes # (Manual) 0.6 L Monocytes # (Manual) Eosinophils # (Manual) Basophils # (Manual) PT INR POC ABG pH ABG pH POC ABG pCO2 POC ABG pO2 ABG pO2 ABG O2 Saturation ABG Base Excess ABG Hemoglobin Oxyhemoglobin Sodium Potassium Chloride Carbon Dioxide BUN Creatinine Glucose POC Glucose 213 H 181 H Calcium Phosphorus Magnesium Iron TIBC Ferritin Total Bilirubin AST ALT Alkaline Phosphatase Total Creatine Kinase Troponin T C-Reactive Protein Total Protein Albumin Triglycerides HDL Cholesterol Miscellaneous Test Crossmatch 09/11/17 09/11/17 09/11/17 11:55 17:56 23:12 WBC RBC Hgb Hct MCV MCH RDW Plt Count Lymph % (Auto) [place] % (Auto) [place] # Seg Neutrophils % Seg Neuts % (Manual) Lymphocytes % (Manual) Monocytes % (Manual) Nucleated RBC % Seg Neutrophils # Seg Neutrophils # Man Lymphocytes # (Manual) Monocytes # (Manual) Eosinophils # (Manual) Basophils # (Manual) PT INR POC ABG pH ABG pH POC ABG pCO2 POC ABG pO2 ABG pO2 ABG O2 Saturation ABG Base Excess ABG Hemoglobin Oxyhemoglobin Sodium Potassium Chloride Carbon Dioxide 21 L BUN 80 H Creatinine 2.1 H Glucose 170 H POC Glucose 277 H 206 H Calcium 8.0 L Phosphorus Magnesium Iron TIBC Ferritin Total Bilirubin AST ALT Alkaline Phosphatase Total Creatine Kinase Troponin T C-Reactive Protein Total Protein Albumin Triglycerides HDL Cholesterol Miscellaneous Test Crossmatch 09/11/17 09/12/17 09/12/17 23:36 05:25 05:25 WBC 17.4 H RBC 2.29 L Hgb 6.7 L Hct 20.4 L MCV MCH RDW 21.2 H Plt Count Lymph % (Auto) [place] % (Auto) [place] # Seg Neutrophils % Seg Neuts % (Manual) 79.0 H Lymphocytes % (Manual) 5.0 L Monocytes % (Manual) Nucleated RBC % 1.0 H Seg Neutrophils # Seg Neutrophils # Man 13.7 H Lymphocytes # (Manual) 0.9 L Monocytes # (Manual) 1.2 H Eosinophils # (Manual) Basophils # (Manual) PT INR POC ABG pH ABG pH POC ABG pCO2 POC ABG pO2 ABG pO2 ABG O2 Saturation ABG Base Excess ABG Hemoglobin Oxyhemoglobin Sodium Potassium Chloride Carbon Dioxide BUN Creatinine Glucose POC Glucose 190 H Calcium Phosphorus Magnesium Iron 22 L TIBC 81 L Ferritin Total Bilirubin AST ALT Alkaline Phosphatase Total Creatine Kinase Troponin T C-Reactive Protein Total Protein Albumin Triglycerides HDL Cholesterol Miscellaneous Test Crossmatch 09/12/17 09/12/17 09/12/17 05:25 05:36 09:14 WBC RBC Hgb Hct MCV MCH RDW Plt Count Lymph % (Auto) [place] % (Auto) [place] # Seg Neutrophils % Seg Neuts % (Manual) Lymphocytes % (Manual) Monocytes % (Manual) Nucleated RBC % Seg Neutrophils # Seg Neutrophils # Man Lymphocytes # (Manual) Monocytes # (Manual) Eosinophils # (Manual) Basophils # (Manual) PT INR POC ABG pH ABG pH POC ABG pCO2 POC ABG pO2 ABG pO2 ABG O2 Saturation ABG Base Excess ABG Hemoglobin Oxyhemoglobin Sodium Potassium Chloride Carbon Dioxide BUN Creatinine Glucose POC Glucose 141 H Calcium Phosphorus Magnesium Iron TIBC Ferritin > 2000.0 H Total Bilirubin AST ALT Alkaline Phosphatase Total Creatine Kinase Troponin T C-Reactive Protein Total Protein Albumin Triglycerides HDL Cholesterol Miscellaneous Test Crossmatch See Detail 09/12/17 09/12/17 09/12/17 11:18 15:22 17:18 WBC RBC Hgb 8.5 L Hct 25.4 L MCV MCH RDW Plt Count Lymph % (Auto) [place] % (Auto) [place] # Seg Neutrophils % Seg Neuts % (Manual) Lymphocytes % (Manual) Monocytes % (Manual) Nucleated RBC % Seg Neutrophils # Seg Neutrophils # Man Lymphocytes # (Manual) Monocytes # (Manual) Eosinophils # (Manual) Basophils # (Manual) PT INR POC ABG pH ABG pH POC ABG pCO2 POC ABG pO2 ABG pO2 ABG O2 Saturation ABG Base Excess ABG Hemoglobin Oxyhemoglobin Sodium Potassium Chloride Carbon Dioxide BUN Creatinine Glucose POC Glucose 262 H 193 H Calcium Phosphorus Magnesium Iron TIBC Ferritin Total Bilirubin AST ALT Alkaline Phosphatase Total Creatine Kinase Troponin T C-Reactive Protein Total Protein Albumin Triglycerides HDL Cholesterol Miscellaneous Test Crossmatch 09/13/17 09/13/17 09/13/17 00:05 06:25 11:36 WBC RBC Hgb Hct MCV MCH RDW Plt Count Lymph % (Auto) [place] % (Auto) [place] # Seg Neutrophils % Seg Neuts % (Manual) Lymphocytes % (Manual) Monocytes % (Manual) Nucleated RBC % Seg Neutrophils # Seg Neutrophils # Man Lymphocytes # (Manual) Monocytes # (Manual) Eosinophils # (Manual) Basophils # (Manual) PT INR POC ABG pH 7.347 L ABG pH POC ABG pCO2 34.3 L POC ABG pO2 134 H ABG pO2 ABG O2 Saturation ABG Base Excess ABG Hemoglobin Oxyhemoglobin Sodium Potassium Chloride Carbon Dioxide BUN Creatinine Glucose POC Glucose 235 H 286 H Calcium Phosphorus Magnesium Iron TIBC Ferritin Total Bilirubin AST ALT Alkaline Phosphatase Total Creatine Kinase Troponin T C-Reactive Protein Total Protein Albumin Triglycerides HDL Cholesterol Miscellaneous Test Crossmatch 09/13/17 09/13/17 09/13/17 11:56 17:25 23:18 WBC RBC Hgb Hct MCV MCH RDW Plt Count Lymph % (Auto) [place] % (Auto) [place] # Seg Neutrophils % Seg Neuts % (Manual) Lymphocytes % (Manual) Monocytes % (Manual) Nucleated RBC % Seg Neutrophils # Seg Neutrophils # Man Lymphocytes # (Manual) Monocytes # (Manual) Eosinophils # (Manual) Basophils # (Manual) PT INR POC ABG pH ABG pH POC ABG pCO2 POC ABG pO2 ABG pO2 ABG O2 Saturation ABG Base Excess ABG Hemoglobin Oxyhemoglobin Sodium Potassium Chloride Carbon Dioxide BUN Creatinine Glucose POC Glucose 318 H 278 H 230 H Calcium Phosphorus Magnesium Iron TIBC Ferritin Total Bilirubin AST ALT Alkaline Phosphatase Total Creatine Kinase Troponin T C-Reactive Protein Total Protein Albumin Triglycerides HDL Cholesterol Miscellaneous Test Crossmatch 09/13/17 09/13/17 09/13/17 Unknown Unknown Unknown WBC 15.6 H RBC 2.72 L Hgb 8.1 L Hct 23.9 L MCV MCH RDW 19.5 H Plt Count 137 L Lymph % (Auto) [place] % (Auto) [place] # Seg Neutrophils % Seg Neuts % (Manual) 73.0 H Lymphocytes % (Manual) 3.0 L Monocytes % (Manual) 19.0 H Nucleated RBC % 2.0 H Seg Neutrophils # Seg Neutrophils # Man 11.4 H Lymphocytes # (Manual) 0.5 L Monocytes # (Manual) 3.0 H Eosinophils # (Manual) Basophils # (Manual) PT INR POC ABG pH ABG pH POC ABG pCO2 POC ABG pO2 ABG pO2 ABG O2 Saturation ABG Base Excess ABG Hemoglobin Oxyhemoglobin Sodium Potassium Chloride Carbon Dioxide 19 L BUN 103 H Creatinine 2.6 H Glucose 173 H POC Glucose Calcium Phosphorus Magnesium Iron TIBC Ferritin Total Bilirubin AST ALT Alkaline Phosphatase Total Creatine Kinase Troponin T C-Reactive Protein Total Protein Albumin < 0.2 L Triglycerides HDL Cholesterol Miscellaneous Test Crossmatch 09/14/17 09/14/17 09/14/17 03:15 03:15 05:16 WBC 12.5 H RBC 2.55 L Hgb 7.6 L Hct 22.5 L MCV MCH RDW 19.8 H Plt Count 139 L Lymph % (Auto) [place] % (Auto) [place] # Seg Neutrophils % Seg Neuts % (Manual) Lymphocytes % (Manual) Monocytes % (Manual) Nucleated RBC % Seg Neutrophils # Seg Neutrophils # Man Lymphocytes # (Manual) Monocytes # (Manual) Eosinophils # (Manual) Basophils # (Manual) PT INR POC ABG pH ABG pH POC ABG pCO2 POC ABG pO2 ABG pO2 ABG O2 Saturation ABG Base Excess ABG Hemoglobin Oxyhemoglobin Sodium Potassium Chloride Carbon Dioxide BUN 75 H Creatinine 2.1 H Glucose 217 H POC Glucose 283 H Calcium Phosphorus 2.20 L D Magnesium Iron TIBC Ferritin Total Bilirubin AST ALT Alkaline Phosphatase Total Creatine Kinase Troponin T C-Reactive Protein Total Protein Albumin Triglycerides HDL Cholesterol Miscellaneous Test Crossmatch 09/14/17 09/14/17 09/15/17 12:11 17:47 00:03 WBC RBC Hgb Hct MCV MCH RDW Plt Count Lymph % (Auto) [place] % (Auto) [place] # Seg Neutrophils % Seg Neuts % (Manual) Lymphocytes % (Manual) Monocytes % (Manual) Nucleated RBC % Seg Neutrophils # Seg Neutrophils # Man Lymphocytes # (Manual) Monocytes # (Manual) Eosinophils # (Manual) Basophils # (Manual) PT INR POC ABG pH ABG pH POC ABG pCO2 POC ABG pO2 ABG pO2 ABG O2 Saturation ABG Base Excess ABG Hemoglobin Oxyhemoglobin Sodium Potassium Chloride Carbon Dioxide BUN Creatinine Glucose POC Glucose 251 H 289 H 229 H Calcium Phosphorus Magnesium Iron TIBC Ferritin Total Bilirubin AST ALT Alkaline Phosphatase Total Creatine Kinase Troponin T C-Reactive Protein Total Protein Albumin Triglycerides HDL Cholesterol Miscellaneous Test Crossmatch 09/15/17 09/15/17 09/15/17 05:00 05:00 05:30 WBC 11.7 H RBC 2.50 L Hgb 7.4 L Hct 22.7 L MCV MCH RDW 20.5 H Plt Count Lymph % (Auto) [place] % (Auto) [place] # Seg Neutrophils % Seg Neuts % (Manual) Lymphocytes % (Manual) 11.0 L Monocytes % (Manual) 11.0 H Nucleated RBC % Seg Neutrophils # Seg Neutrophils # Man Lymphocytes # (Manual) Monocytes # (Manual) 1.3 H Eosinophils # (Manual) Basophils # (Manual) PT INR POC ABG pH ABG pH POC ABG pCO2 POC ABG pO2 ABG pO2 ABG O2 Saturation ABG Base Excess ABG Hemoglobin Oxyhemoglobin Sodium Potassium Chloride 97.0 L Carbon Dioxide 21 L BUN 94 H Creatinine 2.4 H Glucose 194 H POC Glucose 225 H Calcium Phosphorus Magnesium Iron TIBC Ferritin Total Bilirubin AST ALT Alkaline Phosphatase Total Creatine Kinase Troponin T C-Reactive Protein Total Protein Albumin Triglycerides HDL Cholesterol Miscellaneous Test Crossmatch 09/15/17 09/15/17 09/15/17 07:48 11:38 12:45 WBC RBC 1.93 L Hgb 5.7 L* Hct 17.1 L* MCV MCH RDW 20.2 H Plt Count 125 L Lymph % (Auto) [place] % (Auto) [place] # Seg Neutrophils % Seg Neuts % (Manual) 79.0 H Lymphocytes % (Manual) 8.0 L Monocytes % (Manual) Nucleated RBC % Seg Neutrophils # Seg Neutrophils # Man Lymphocytes # (Manual) 0.8 L Monocytes # (Manual) Eosinophils # (Manual) Basophils # (Manual) PT INR POC ABG pH ABG pH POC ABG pCO2 POC ABG pO2 ABG pO2 ABG O2 Saturation ABG Base Excess ABG Hemoglobin Oxyhemoglobin Sodium Potassium Chloride Carbon Dioxide BUN Creatinine Glucose POC Glucose 245 H 253 H Calcium Phosphorus Magnesium Iron TIBC Ferritin Total Bilirubin AST ALT Alkaline Phosphatase Total Creatine Kinase Troponin T C-Reactive Protein Total Protein Albumin Triglycerides HDL Cholesterol Miscellaneous Test Crossmatch 09/15/17 09/15/17 09/15/17 12:45 12:45 22:25 WBC 19.6 H RBC 3.32 L Hgb 10.0 L D Hct 29.3 L D MCV MCH RDW 17.0 H Plt Count 123 L Lymph % (Auto) [place] % (Auto) [place] # Seg Neutrophils % Seg Neuts % (Manual) Lymphocytes % (Manual) 12.0 L Monocytes % (Manual) Nucleated RBC % 5.0 H Seg Neutrophils # Seg Neutrophils # Man 11.0 H Lymphocytes # (Manual) Monocytes # (Manual) 1.2 H Eosinophils # (Manual) Basophils # (Manual) PT 15.4 H INR 1.16 H POC ABG pH ABG pH POC ABG pCO2 POC ABG pO2 ABG pO2 ABG O2 Saturation ABG Base Excess ABG Hemoglobin Oxyhemoglobin Sodium Potassium Chloride Carbon Dioxide BUN Creatinine Glucose POC Glucose Calcium Phosphorus Magnesium Iron TIBC Ferritin Total Bilirubin AST ALT Alkaline Phosphatase Total Creatine Kinase Troponin T C-Reactive Protein Total Protein Albumin Triglycerides HDL Cholesterol Miscellaneous Test Crossmatch See Detail 09/15/17 09/15/17 09/16/17 22:25 23:38 01:26 WBC RBC Hgb Hct MCV MCH RDW Plt Count Lymph % (Auto) [place] % (Auto) [place] # Seg Neutrophils % Seg Neuts % (Manual) Lymphocytes % (Manual) Monocytes % (Manual) Nucleated RBC % Seg Neutrophils # Seg Neutrophils # Man Lymphocytes # (Manual) Monocytes # (Manual) Eosinophils # (Manual) Basophils # (Manual) PT INR POC ABG pH ABG pH POC ABG pCO2 POC ABG pO2 ABG pO2 ABG O2 Saturation ABG Base Excess ABG Hemoglobin Oxyhemoglobin Sodium Potassium Chloride Carbon Dioxide 17 L BUN 100 H Creatinine 2.6 H Glucose POC Glucose 58 L 132 H Calcium 8.3 L Phosphorus Magnesium 1.60 L Iron TIBC Ferritin Total Bilirubin 2.80 H AST 118 H ALT Alkaline Phosphatase 316 H Total Creatine Kinase Troponin T C-Reactive Protein Total Protein 4.0 L Albumin 1.8 L Triglycerides HDL Cholesterol Miscellaneous Test Crossmatch 09/16/17 09/16/17 09/16/17 05:30 05:30 05:54 WBC 24.6 H RBC 3.22 L Hgb 9.8 L Hct 28.6 L MCV MCH RDW 17.4 H Plt Count 127 L Lymph % (Auto) [place] % (Auto) [place] # Seg Neutrophils % Seg Neuts % (Manual) Lymphocytes % (Manual) Monocytes % (Manual) Nucleated RBC % Seg Neutrophils # Seg Neutrophils # Man Lymphocytes # (Manual) Monocytes # (Manual) Eosinophils # (Manual) Basophils # (Manual) PT INR POC ABG pH ABG pH POC ABG pCO2 POC ABG pO2 ABG pO2 ABG O2 Saturation ABG Base Excess ABG Hemoglobin Oxyhemoglobin Sodium Potassium Chloride Carbon Dioxide 18 L BUN 109 H Creatinine 2.5 H Glucose 140 H POC Glucose 154 H Calcium Phosphorus 4.80 H Magnesium Iron TIBC Ferritin Total Bilirubin 2.40 H AST 90 H ALT Alkaline Phosphatase 298 H Total Creatine Kinase 20 L Troponin T C-Reactive Protein Total Protein 4.1 L Albumin 1.8 L Triglycerides HDL Cholesterol Miscellaneous Test Crossmatch 09/16/17 09/16/17 09/16/17 11:49 17:04 23:18 WBC RBC Hgb Hct MCV MCH RDW Plt Count Lymph % (Auto) [place] % (Auto) [place] # Seg Neutrophils % Seg Neuts % (Manual) Lymphocytes % (Manual) Monocytes % (Manual) Nucleated RBC % Seg Neutrophils # Seg Neutrophils # Man Lymphocytes # (Manual) Monocytes # (Manual) Eosinophils # (Manual) Basophils # (Manual) PT INR POC ABG pH ABG pH POC ABG pCO2 POC ABG pO2 ABG pO2 ABG O2 Saturation ABG Base Excess ABG Hemoglobin Oxyhemoglobin Sodium Potassium Chloride Carbon Dioxide BUN Creatinine Glucose POC Glucose 167 H 156 H 162 H Calcium Phosphorus Magnesium Iron TIBC Ferritin Total Bilirubin AST ALT Alkaline Phosphatase Total Creatine Kinase Troponin T C-Reactive Protein Total Protein Albumin Triglycerides HDL Cholesterol Miscellaneous Test Crossmatch 09/17/17 09/17/17 09/17/17 05:27 06:10 06:10 WBC 34.6 H RBC 2.75 L Hgb 8.4 L Hct 24.8 L MCV MCH RDW 18.3 H Plt Count Lymph % (Auto) [place] % (Auto) [place] # Seg Neutrophils % Seg Neuts % (Manual) 77.0 H Lymphocytes % (Manual) 5.0 L Monocytes % (Manual) Nucleated RBC % 2.0 H Seg Neutrophils # Seg Neutrophils # Man 26.6 H Lymphocytes # (Manual) Monocytes # (Manual) 2.4 H Eosinophils # (Manual) Basophils # (Manual) PT INR POC ABG pH ABG pH POC ABG pCO2 POC ABG pO2 ABG pO2 ABG O2 Saturation ABG Base Excess ABG Hemoglobin Oxyhemoglobin Sodium Potassium Chloride Carbon Dioxide BUN 82 H Creatinine 2.1 H Glucose 252 H POC Glucose 243 H Calcium 8.3 L Phosphorus Magnesium Iron TIBC Ferritin Total Bilirubin AST ALT Alkaline Phosphatase Total Creatine Kinase Troponin T C-Reactive Protein Total Protein Albumin Triglycerides HDL Cholesterol Miscellaneous Test Crossmatch
[2017-09-17] MEDS: PROTONIX IV SCH (10:21)
[2017-09-17] MEDS: LEVEMIR SUB-Q SCH (10:21)
[2017-09-17] MEDS: MYCAMINE 100 MG in NACL 0.9% 100 ML IV SCH (10:21)
[2017-09-17] MEDS: ATIVAN IV PRN (10:31)
--- NOTE | 2017-09-17 11:00 | Progress Note ---
Assessment and Plan Assessment: 1) Sepsis with septic shock: worsening leukocytosis ; new source ? colonic perf. Restared on IV solumedrol 09/13 -CRP= 34 -->30 -->19-->0.1 ->2.8 -procalcitonin=1.3 -->7.6 -->3.9 -->3.2 2) Bowel obstruction / suspect ?gastric perforation ? peritonitis -S/P Exlap, G-tube placement, EGD, abdominal washout and removal of PD -OR findings - bowel obstruction due to entanglement of PD cath, abscess cavity in LUQ and ? suspect perforation of unclear location 3) CA-UTI: chronic ivan exchanged every 4 weeks and ureteral stents in place which are exchanged every 6 months ? urine cultures still pending should r/o MDR bacteria 4) Paraplegia 5) ESRD on PD - no evidence of peritonitis, wbc count 2. LOWER IN SUPERVISOR and Diphteroids on peritoneal fluid likely contaminants. 6) Recent pancreatitis 7) Penicillin allergy-has taken keflex w/o problems 8) Presumed Surgical wound infection / dehiscence ? 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 11) Sacral stage II 12) Anemia- severe- Hg 6.7 today 13) Colonic perforation: -S/P exlap, transverse colectomy, right sided colostomy and wash out on 09/15 Plan: -stop dapto -continue micafungin day 7 of 10 (extended in view of colonic perf) -continue meropenem (extended in view of colonic perf) -monitor leukocytosis which is worsening as expected since she was started back on IV steroids. -wound care Thank you Dr Cantu for your consultation, will follow up with you. Ramya Lang MD Infectious Diseases Specialist [facility] ([facility] M [phone] O [phone] Subjective Date of service: 09/17/17 Principal diagnosis: respiratory failure, sepsis, shock rectal bleeding Interval history: Pt remains on the vent now on levophed at 8 mcg, off vasopressin on TPN, fentanyl, no fever. Microbiology: Blood cultures: 08/08 neg 08/12 neg 08/16 neg 08/20 neg 08/29 neg 09/06 neg 09/12 ngtd Urine cultures: 08/08 10-100K skin grace Respiratory cultures: 08/30 tracheal asp MRSA Wound cultures: 08/26 Staph aureus and Kristine 08/28 MRSA, E faecalis, Kristine albicans Stool cultures: Other: 08/08 peritoneal fluid + LOWER IN SUPERVISOR/Diphteroids Current Antimicrobials: dapto 09/10 meropenem 09/09 micafungin 09/11 Previous Antimicrobials: 08/10 levaquin 08/16 vancomycin 08/13 meropenem 08/16 fluconazole Micafungin 08/29 meropenem 08/29 zyvox 09/03 fluconazole 09/03 Objective - Exam Narrative Exam: General appearance: alert this am on vent via trach Eyes: anicteric sclerae, moist conjunctivae; no lid-lag; PERRLA HENT: Atraumatic; NGT Neck: Trach in place Lungs: coarse BS moreno CV: RRR Abdomen: soft, midline surgical wound with sutures no drainage. Gtube. colostomy Extremities: + peripheral edema + leg ulcer no drainage Skin: right groin old fem line wound no erythema, no drainage Psych: sedated. Neuro: sedated Lines: right IJ vas cath / Right IJ Nair 08/16 - Constitutional Vitals: Vital Signs Temp Pulse Resp BP Pulse Ox 98.6 F 89 22 93/45 100 09/17/17 08:00 09/17/17 10:51 09/17/17 10:51 09/17/17 10:51 09/17/17 10:51 Temperature -Last 24 Hours Temperature 98.6 F Temperature 99.5 F Temperature 99.4 F Temperature 99.1 F Temperature 98.6 F Temperature 98.6 F Temperature 98.6 F Temperature 98.6 F - Labs CBC & Chem 7: 09/17/17 06:10 09/17/17 06:10 Labs: Abnormal lab results 09/15/17 09/16/17 09/16/17 Range/Units 12:45 11:49 17:04 WBC (4.5-11.0) K/mm3 RBC (3.65-5.03) M/mm3 Hgb (10.1-14.3) gm/dl Hct (30.3-42.9) % RDW (13.2-15.2) % Seg Neuts % (Manual) (40.0-70.0) % Lymphocytes % (Manual) (13.4-35.0) % Nucleated RBC % (0.0-0.9) % Seg Neutrophils # Man (1.8-7.7) K/mm3 Monocytes # (Manual) (0.0-0.8) K/mm3 BUN (7-17) mg/dL Creatinine (0.7-1.2) mg/dL Glucose (65-100) mg/dL POC Glucose 167 H 156 H (70-105) Calcium (8.4-10.2) mg/dL Crossmatch See Detail 09/16/17 09/17/17 09/17/17 Range/Units 23:18 05:27 06:10 WBC (4.5-11.0) K/mm3 RBC (3.65-5.03) M/mm3 Hgb (10.1-14.3) gm/dl Hct (30.3-42.9) % RDW (13.2-15.2) % Seg Neuts % (Manual) (40.0-70.0) % Lymphocytes % (Manual) (13.4-35.0) % Nucleated RBC % (0.0-0.9) % Seg Neutrophils # Man (1.8-7.7) K/mm3 Monocytes # (Manual) (0.0-0.8) K/mm3 BUN 82 H (7-17) mg/dL Creatinine 2.1 H (0.7-1.2) mg/dL Glucose 252 H (65-100) mg/dL POC Glucose 162 H 243 H (70-105) Calcium 8.3 L (8.4-10.2) mg/dL Crossmatch 09/17/17 Range/Units 06:10 WBC 34.6 H (4.5-11.0) K/mm3 RBC 2.75 L (3.65-5.03) M/mm3 Hgb 8.4 L (10.1-14.3) gm/dl Hct 24.8 L (30.3-42.9) % RDW 18.3 H (13.2-15.2) % Seg Neuts % (Manual) 77.0 H (40.0-70.0) % Lymphocytes % (Manual) 5.0 L (13.4-35.0) % Nucleated RBC % 2.0 H (0.0-0.9) % Seg Neutrophils # Man 26.6 H (1.8-7.7) K/mm3 Monocytes # (Manual) 2.4 H (0.0-0.8) K/mm3 BUN (7-17) mg/dL Creatinine (0.7-1.2) mg/dL Glucose (65-100) mg/dL POC Glucose (70-105) Calcium (8.4-10.2) mg/dL Crossmatch
[2017-09-17] MEDS ORDERED: ALBURX 25% (ALBUMIN) IV SCH (12:00)
[2017-09-17] MEDS: HEPARIN IV PRN (14:16)
[2017-09-17] MEDS: MERREM 1,000 MG in NACL 0.9% 100 ML IV SCH (14:59)
--- NOTE | 2017-09-17 17:24 | Progress Note ---
Assessment and Plan 62 y.o. F s/p ex lap, transverse colon resection, colostomy creation, and s/p ex lap, abdominal wash out and abdominal wall closure after wound dehiscence 2 weeks s/p ex lap for gastric perforation and sbo. s/p transverse colon resection with ostomy resection for perforated colon: ostomy patent. Wound care nurse consulted for colostomy care. Monitor MERVIN output - becoming more serous sanginous. Continue G tube to gravity. Outputs to be recorded on paper in room for accurate outputs. -once ostomy has air and G tube output low, will rec tube feeds to be restarted. Will check ostomy tomorrow and advise tomorrow. Pt requiring levo. Vaso off. s/p Antonieta placement -Leukocytosis likely reactive from surgery with reaction from perf. bowel exposure since it was walled off. - ID following - merrem, mycamin, cubicin -Rec. wean steriods Heme- rec heme consult has pt may have a coagulate that is not apparent with INR /PT or PTT changes. 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 VDRF: s/p trach. Prev Gastric perf: Sealed. In light of recent surgery, keep G tube to gravity CKD- HD per renal Nutrition: TPN at 77,. DVT proph: scds GI: PPI. - Patient Problems (1) Peritonitis (acute) generalized Current Visit: Yes Status: Acute Subjective Narrative: No acute events overnight. Pt had HD today- levo requirements increased and now trying to wean presser support down again as BP allows. Afebrile Objective Vital Signs - 12hr 09/17/17 09/17/17 09/17/17 05:30 05:46 06:00 Temperature Pulse Rate 102 H 103 H 99 H Pulse Rate [ Anterior Bilateral Throughout] Respiratory 21 23 21 Rate Respiratory Rate [Anterior Bilateral Throughout] Blood Pressure 92/50 107/47 107/47 O2 Sat by Pulse 96 100 100 Oximetry O2 Sat by Pulse Oximetry [ Anterior Bilateral Throughout] O2 Sat by Pulse Oximetry [ Assessment] 09/17/17 09/17/17 09/17/17 06:16 06:30 06:46 Temperature Pulse Rate 109 H 103 H 94 H Pulse Rate [ Anterior Bilateral Throughout] Respiratory 20 15 21 Rate Respiratory Rate [Anterior Bilateral Throughout] Blood Pressure 115/49 123/56 123/56 O2 Sat by Pulse 100 100 97 Oximetry O2 Sat by Pulse Oximetry [ Anterior Bilateral Throughout] O2 Sat by Pulse Oximetry [ Assessment] 09/17/17 09/17/17 09/17/17 06:48 07:00 07:16 Temperature Pulse Rate 99 H 96 H Pulse Rate [ 92 H Anterior Bilateral Throughout] Respiratory 21 24 Rate Respiratory 20 Rate [Anterior Bilateral Throughout] Blood Pressure 122/57 122/57 O2 Sat by Pulse 100 97 Oximetry O2 Sat by Pulse Oximetry [ Anterior Bilateral Throughout] O2 Sat by Pulse Oximetry [ Assessment] 09/17/17 09/17/17 09/17/17 07:30 07:46 08:00 Temperature 98.6 F Pulse Rate 114 H 112 H 96 H Pulse Rate [ Anterior Bilateral Throughout] Respiratory 23 12 22 Rate Respiratory Rate [Anterior Bilateral Throughout] Blood Pressure 119/60 119/60 O2 Sat by Pulse 97 98 100 Oximetry O2 Sat by Pulse Oximetry [ Anterior Bilateral Throughout] O2 Sat by Pulse Oximetry [ Assessment] 09/17/17 09/17/17 09/17/17 08:16 08:30 08:46 Temperature Pulse Rate 108 H 101 H 94 H Pulse Rate [ Anterior Bilateral Throughout] Respiratory 21 23 20 Rate Respiratory Rate [Anterior Bilateral Throughout] Blood Pressure 119/60 119/60 119/60 O2 Sat by Pulse 96 99 99 Oximetry O2 Sat by Pulse Oximetry [ Anterior Bilateral Throughout] O2 Sat by Pulse Oximetry [ Assessment] 09/17/17 09/17/17 09/17/17 09:00 09:16 09:30 Temperature Pulse Rate 101 H 100 H 91 H Pulse Rate [ Anterior Bilateral Throughout] Respiratory 21 20 20 Rate Respiratory Rate [Anterior Bilateral Throughout] Blood Pressure 119/60 119/60 96/48 O2 Sat by Pulse 98 100 99 Oximetry O2 Sat by Pulse Oximetry [ Anterior Bilateral Throughout] O2 Sat by Pulse Oximetry [ Assessment] 09/17/17 09/17/17 09/17/17 09:46 10:00 10:16 Temperature Pulse Rate 90 99 H 87 Pulse Rate [ Anterior Bilateral Throughout] Respiratory 20 24 16 Rate Respiratory Rate [Anterior Bilateral Throughout] Blood Pressure 96/48 96/48 110/47 O2 Sat by Pulse 100 98 100 Oximetry O2 Sat by Pulse Oximetry [ Anterior Bilateral Throughout] O2 Sat by Pulse Oximetry [ Assessment] 09/17/17 09/17/17 09/17/17 10:25 10:30 10:46 Temperature Pulse Rate 105 H 97 H Pulse Rate [ Anterior Bilateral Throughout] Respiratory 22 26 H Rate Respiratory Rate [Anterior Bilateral Throughout] Blood Pressure 117/52 93/45 O2 Sat by Pulse 100 99 Oximetry O2 Sat by Pulse Oximetry [ Anterior Bilateral Throughout] O2 Sat by Pulse 99 Oximetry [ Assessment] 09/17/17 09/17/17 09/17/17 10:51 11:00 11:15 Temperature 97.7 F Pulse Rate 89 90 89 Pulse Rate [ Anterior Bilateral Throughout] Respiratory 22 20 19 Rate Respiratory Rate [Anterior Bilateral Throughout] Blood Pressure 93/45 98/47 114/51 O2 Sat by Pulse 100 100 Oximetry O2 Sat by Pulse 94 Oximetry [ Anterior Bilateral Throughout] O2 Sat by Pulse Oximetry [ Assessment] 09/17/17 09/17/17 09/17/17 11:16 11:30 11:45 Temperature Pulse Rate 90 90 87 Pulse Rate [ Anterior Bilateral Throughout] Respiratory 22 20 Rate Respiratory Rate [Anterior Bilateral Throughout] Blood Pressure 114/51 117/57 117/57 O2 Sat by Pulse 100 100 Oximetry O2 Sat by Pulse Oximetry [ Anterior Bilateral Throughout] O2 Sat by Pulse Oximetry [ Assessment] 09/17/17 09/17/17 09/17/17 11:46 12:00 12:15 Temperature 97.8 F Pulse Rate 85 87 90 Pulse Rate [ Anterior Bilateral Throughout] Respiratory 16 21 Rate Respiratory Rate [Anterior Bilateral Throughout] Blood Pressure 120/60 103/57 97/52 O2 Sat by Pulse 97 95 Oximetry O2 Sat by Pulse Oximetry [ Anterior Bilateral Throughout] O2 Sat by Pulse Oximetry [ Assessment] 09/17/17 09/17/17 09/17/17 12:16 12:30 12:45 Temperature Pulse Rate 89 95 H 95 H Pulse Rate [ Anterior Bilateral Throughout] Respiratory 18 19 17 Rate Respiratory Rate [Anterior Bilateral Throughout] Blood Pressure 97/52 101/47 86/53 O2 Sat by Pulse 95 84 96 Oximetry O2 Sat by Pulse Oximetry [ Anterior Bilateral Throughout] O2 Sat by Pulse Oximetry [ Assessment] 09/17/17 09/17/17 09/17/17 13:00 13:15 13:29 Temperature Pulse Rate 99 H 96 H 103 H Pulse Rate [ Anterior Bilateral Throughout] Respiratory 20 17 Rate Respiratory Rate [Anterior Bilateral Throughout] Blood Pressure 85/49 91/53 91/53 O2 Sat by Pulse 98 97 Oximetry O2 Sat by Pulse Oximetry [ Anterior Bilateral Throughout] O2 Sat by Pulse Oximetry [ Assessment] 09/17/17 09/17/17 09/17/17 13:30 13:45 14:03 Temperature Pulse Rate 101 H 102 H 105 H Pulse Rate [ Anterior Bilateral Throughout] Respiratory 18 19 Rate Respiratory Rate [Anterior Bilateral Throughout] Blood Pressure 88/52 93/54 89/55 O2 Sat by Pulse 91 89 Oximetry O2 Sat by Pulse Oximetry [ Anterior Bilateral Throughout] O2 Sat by Pulse Oximetry [ Assessment] 09/17/17 09/17/17 14:11 15:41 Temperature 97.7 F Pulse Rate 99 H 99 H Pulse Rate [ Anterior Bilateral Throughout] Respiratory 18 18 Rate Respiratory Rate [Anterior Bilateral Throughout] Blood Pressure 89/55 89/55 O2 Sat by Pulse 89 Oximetry O2 Sat by Pulse 100 Oximetry [ Anterior Bilateral Throughout] O2 Sat by Pulse Oximetry [ Assessment] - General physical appearance chronically ill, obese - Neck other (trach/vent. no bleeding ) - Respiratory normal expansion, normal respiratory effort, other (vent) - Abdomen soft, other (MERVIN and G tube in place. G tube: 300cc bilious since am. MERVIN: serosang . Packing removed from midline. retention sutures in place. repacked with iodofrom gauze. colostomy: patent, violancious stoma, minimal air in bang. serosangous/mixed with liquid stool) - Integumentary no rash, other (skin weeping ) - Musculoskeletal other (+3-4 upper and lower extremity edema ) - Labs 09/17/17 06:10 09/17/17 06:10 Diabetes panel 09/17/17 Range/Units 06:10 Sodium 144 (137-145) mmol/L Potassium 4.2 (3.6-5.0) mmol/L Chloride 102.7 (98-107) mmol/L Carbon Dioxide 22 (22-30) mmol/L BUN 82 H (7-17) mg/dL Creatinine 2.1 H (0.7-1.2) mg/dL Glucose 252 H (65-100) mg/dL Calcium 8.3 L (8.4-10.2) mg/dL Calcium panel 09/17/17 Range/Units 06:10 Calcium 8.3 L (8.4-10.2) mg/dL Phosphorus 3.40 D (2.5-4.5) mg/dL Pituitary panel 09/17/17 Range/Units 06:10 Sodium 144 (137-145) mmol/L Potassium 4.2 (3.6-5.0) mmol/L Chloride 102.7 (98-107) mmol/L Carbon Dioxide 22 (22-30) mmol/L BUN 82 H (7-17) mg/dL Creatinine 2.1 H (0.7-1.2) mg/dL Glucose 252 H (65-100) mg/dL Calcium 8.3 L (8.4-10.2) mg/dL Adrenal panel 09/17/17 Range/Units 06:10 Sodium 144 (137-145) mmol/L Potassium 4.2 (3.6-5.0) mmol/L Chloride 102.7 (98-107) mmol/L Carbon Dioxide 22 (22-30) mmol/L BUN 82 H (7-17) mg/dL Creatinine 2.1 H (0.7-1.2) mg/dL Glucose 252 H (65-100) mg/dL Calcium 8.3 L (8.4-10.2) mg/dL
[2017-09-17] MEDS: LEVOPHED 8 MG in NACL 0.9% 250ML 242 ML IV SCH (17:55)
[2017-09-17] MEDS ORDERED: TPN ADULT 1,800 ML IV SCH (20:00)
--- NOTE | 2017-09-17 20:23 | Progress Note ---
Assessment and Plan - Patient Problems (1) Leukocytosis Current Visit: Yes Status: Acute Qualifiers: Leukocytosis type: L Plan to address problem: See notes above. make sure that PD access is clean also. see notes. Probably infection from the infected PD catheter. improving. back up again. up/down continue to monitor. it continuos to rise. still high. improved. Back up. (2) Anemia Current Visit: Yes Status: Acute Qualifiers: Anemia type: A Iron deficiency anemia type: I Vitamin B12 deficiency anemia type: V Folate deficiency anemia type: F Bone marrow failure anemia type: B Hemolytic anemia type: H Other causes of anemia: O Chronic kidney disease stage: C Plan to address problem: see notes , monitor labs,. see notes above. continue to monitor labs with you. blood transfusion. S/P replacement transfusion. fair. s/p 1unit transfusion. see notes. Still at 7.4 6.9, scheduled for replacement. Fairly stable at this time. continue to monitor. (3) Acute respiratory failure Current Visit: Yes Status: Acute Qualifiers: Respiratory failure complication: R Plan to address problem: follow pulm. Subjective Date of service: 09/17/17 Principal diagnosis: respiratory failure, sepsis, shock rectal bleeding Interval history: Patient seen today/examined, labs reviewed, case d/w she, and family.complaints of abdominal pain. Patient resting in bed in the ICU, post vascular procedure. labs reviewed, Reactive thrombocytosis, anemia of CD, leukocytosis from infection vs inflamatory process. Patient seen/examined, in bed in the ICU, on the vent post surgery.Labs reviewed , notes reviewed. will continue to monitor labs/patient with you. Replacement transfusion, if /when indicated. patient seen/examined, SBP75, on pressors., lethargic, on the vent, labs reviewed, wbc 39,000 Patient seen/examined, case reviewed, d/w her sister at the bed side. Patient seen/examined, labs reviewed, notes reviewed. severe septic shock from infected PD catheter The high wbc is all infection related. H?H low, and may get replacement transfusion with the next HD. Prognosis remain quite poor. Patient seen/examined, extubated, now on V Mask. labs reviewed. patient seen/examined, resting in bed, still some what lethargic . labs reviewed. Patient seen/examined, resting in bed., some difficulty with breathing./ lethargic. patient seen/examined, resting in bed, looked much better labs reviewed, and fair over all. Patient seen/examined, resting in bed, labs reviewed, case d/w her. Patient seen/examined, resting in bed on BIPAP., labs reviewed. patient seen/examined, resting in bed, on Bipap.labs reviewed, fairly stable. Patient seen today, resting in bed, labs reviewed, H/H low, and transfusion already ordered. Patient seen/examined, resting in bed, transferred back to the unit, due to resp failure. She is now on venting mask. had blood replacement done. Patient seen/examined in the ICU.labs reviewed. patient intubated this am. patient resting in bed.no new issues. Patient seen/examined in the ICU, on vent,Not readily responsive. patient seen, resting in bed, no new cbc ready.will order for today. Patient seen, resting in vent, labs reviewed.notes reviewed also. patient seen/examined, resting on vent, had HD yesterday, and today., labs reviewed. Patient seen, resting in bed, labs reviewed.fairly stable labs, except the wbc. Patient seen/examined, rtesting in bed on the vent.Labs reviewed, wbc still elevated, Hgb dropped slightly. Patient seen/examined, labs reviewed, hgb 7.3, if 7.0 or less, will replace .unless otherwise indicated. Patient seen/examined, alert but lethargic.sedation drip turned down.she is s/p 1unit PRBC replacement with HD today. Patient seen/examined, labs reviewed, hgb still not quite enough at 7.5, perhaps with the next HD,can use 1-2 units. Patient seen/examined, resting in bed, trached, labs re viewed. Patient seen/examined, resting in bed, responds to name calling, SBP99, labs reviewed, Hgb 6.9, PRBC replacement ordered by primary. Patient seen/examined, in bed/trach, NGT., alert/lethargic. Patient seen/examined, resting in bed, still lethargic, labs reviewed, and still fair.Will continue to follow you. Objective - Constitutional Vitals: Vital Signs - 12hr 09/17/17 09/17/17 09/17/17 08:30 08:46 09:00 Temperature Pulse Rate 101 H 94 H 101 H Pulse Rate [ Anterior Bilateral Throughout] Respiratory 23 20 21 Rate Respiratory Rate [Anterior Bilateral Throughout] Blood Pressure 119/60 119/60 119/60 O2 Sat by Pulse 99 99 98 Oximetry O2 Sat by Pulse Oximetry [ Anterior Bilateral Throughout] O2 Sat by Pulse Oximetry [ Assessment] 09/17/17 09/17/17 09/17/17 09:16 09:30 09:45 Temperature Pulse Rate 100 H 91 H Pulse Rate [ 91 H 98 H Anterior Bilateral Throughout] Respiratory 20 20 Rate Respiratory 20 18 Rate [Anterior Bilateral Throughout] Blood Pressure 119/60 96/48 O2 Sat by Pulse 100 99 Oximetry O2 Sat by Pulse Oximetry [ Anterior Bilateral Throughout] O2 Sat by Pulse Oximetry [ Assessment] 09/17/17 09/17/17 09/17/17 09:46 10:00 10:16 Temperature Pulse Rate 90 99 H 87 Pulse Rate [ Anterior Bilateral Throughout] Respiratory 20 24 16 Rate Respiratory Rate [Anterior Bilateral Throughout] Blood Pressure 96/48 96/48 110/47 O2 Sat by Pulse 100 98 100 Oximetry O2 Sat by Pulse Oximetry [ Anterior Bilateral Throughout] O2 Sat by Pulse Oximetry [ Assessment] 09/17/17 09/17/17 09/17/17 10:25 10:30 10:46 Temperature Pulse Rate 105 H 97 H Pulse Rate [ Anterior Bilateral Throughout] Respiratory 22 26 H Rate Respiratory Rate [Anterior Bilateral Throughout] Blood Pressure 117/52 93/45 O2 Sat by Pulse 100 99 Oximetry O2 Sat by Pulse Oximetry [ Anterior Bilateral Throughout] O2 Sat by Pulse 99 Oximetry [ Assessment] 09/17/17 09/17/17 09/17/17 10:51 11:00 11:15 Temperature 97.7 F Pulse Rate 89 90 89 Pulse Rate [ Anterior Bilateral Throughout] Respiratory 22 20 19 Rate Respiratory Rate [Anterior Bilateral Throughout] Blood Pressure 93/45 98/47 114/51 O2 Sat by Pulse 100 100 Oximetry O2 Sat by Pulse 94 Oximetry [ Anterior Bilateral Throughout] O2 Sat by Pulse Oximetry [ Assessment] 09/17/17 09/17/17 09/17/17 11:16 11:30 11:45 Temperature Pulse Rate 90 90 87 Pulse Rate [ Anterior Bilateral Throughout] Respiratory 22 20 Rate Respiratory Rate [Anterior Bilateral Throughout] Blood Pressure 114/51 117/57 117/57 O2 Sat by Pulse 100 100 Oximetry O2 Sat by Pulse Oximetry [ Anterior Bilateral Throughout] O2 Sat by Pulse Oximetry [ Assessment] 09/17/17 09/17/17 09/17/17 11:46 12:00 12:15 Temperature 97.8 F Pulse Rate 85 87 90 Pulse Rate [ Anterior Bilateral Throughout] Respiratory 16 21 Rate Respiratory Rate [Anterior Bilateral Throughout] Blood Pressure 120/60 103/57 97/52 O2 Sat by Pulse 97 95 Oximetry O2 Sat by Pulse Oximetry [ Anterior Bilateral Throughout] O2 Sat by Pulse Oximetry [ Assessment] 09/17/17 09/17/17 09/17/17 12:16 12:30 12:45 Temperature Pulse Rate 89 95 H 95 H Pulse Rate [ Anterior Bilateral Throughout] Respiratory 18 19 17 Rate Respiratory Rate [Anterior Bilateral Throughout] Blood Pressure 97/52 101/47 86/53 O2 Sat by Pulse 95 84 96 Oximetry O2 Sat by Pulse Oximetry [ Anterior Bilateral Throughout] O2 Sat by Pulse Oximetry [ Assessment] 09/17/17 09/17/17 09/17/17 13:00 13:15 13:29 Temperature Pulse Rate 99 H 96 H 103 H Pulse Rate [ Anterior Bilateral Throughout] Respiratory 20 17 Rate Respiratory Rate [Anterior Bilateral Throughout] Blood Pressure 85/49 91/53 91/53 O2 Sat by Pulse 98 97 Oximetry O2 Sat by Pulse Oximetry [ Anterior Bilateral Throughout] O2 Sat by Pulse Oximetry [ Assessment] 09/17/17 09/17/17 09/17/17 13:30 13:45 14:00 Temperature Pulse Rate 101 H 102 H 105 H Pulse Rate [ Anterior Bilateral Throughout] Respiratory 18 19 18 Rate Respiratory Rate [Anterior Bilateral Throughout] Blood Pressure 88/52 93/54 89/55 O2 Sat by Pulse 91 89 92 Oximetry O2 Sat by Pulse Oximetry [ Anterior Bilateral Throughout] O2 Sat by Pulse Oximetry [ Assessment] 09/17/17 09/17/17 09/17/17 14:03 14:11 14:15 Temperature 97.7 F Pulse Rate 105 H 99 H 96 H Pulse Rate [ Anterior Bilateral Throughout] Respiratory 18 22 Rate Respiratory Rate [Anterior Bilateral Throughout] Blood Pressure 89/55 89/55 96/48 O2 Sat by Pulse 98 Oximetry O2 Sat by Pulse 100 Oximetry [ Anterior Bilateral Throughout] O2 Sat by Pulse Oximetry [ Assessment] 09/17/17 09/17/17 09/17/17 14:30 14:45 15:00 Temperature Pulse Rate 96 H 91 H 93 H Pulse Rate [ Anterior Bilateral Throughout] Respiratory 20 19 22 Rate Respiratory Rate [Anterior Bilateral Throughout] Blood Pressure 102/53 94/49 101/54 O2 Sat by Pulse 89 96 92 Oximetry O2 Sat by Pulse Oximetry [ Anterior Bilateral Throughout] O2 Sat by Pulse Oximetry [ Assessment] 09/17/17 09/17/17 09/17/17 15:15 15:30 15:41 Temperature Pulse Rate 90 86 99 H Pulse Rate [ Anterior Bilateral Throughout] Respiratory 19 20 18 Rate Respiratory Rate [Anterior Bilateral Throughout] Blood Pressure 96/47 104/53 89/55 O2 Sat by Pulse 97 100 89 Oximetry O2 Sat by Pulse Oximetry [ Anterior Bilateral Throughout] O2 Sat by Pulse Oximetry [ Assessment] 09/17/17 09/17/17 09/17/17 15:46 16:00 16:16 Temperature 97.7 F Pulse Rate 85 88 91 H Pulse Rate [ Anterior Bilateral Throughout] Respiratory 22 20 21 Rate Respiratory Rate [Anterior Bilateral Throughout] Blood Pressure 128/56 120/55 101/51 O2 Sat by Pulse 100 100 100 Oximetry O2 Sat by Pulse Oximetry [ Anterior Bilateral Throughout] O2 Sat by Pulse Oximetry [ Assessment] 09/17/17 09/17/17 09/17/17 16:30 16:46 16:55 Temperature Pulse Rate 91 H 95 H Pulse Rate [ 99 H 98 H Anterior Bilateral Throughout] Respiratory 20 18 Rate Respiratory 22 26 H Rate [Anterior Bilateral Throughout] Blood Pressure 101/51 76/47 O2 Sat by Pulse 100 100 Oximetry O2 Sat by Pulse Oximetry [ Anterior Bilateral Throughout] O2 Sat by Pulse Oximetry [ Assessment] 09/17/17 09/17/17 09/17/17 17:00 17:16 17:30 Temperature Pulse Rate 80 101 H 100 H Pulse Rate [ Anterior Bilateral Throughout] Respiratory 19 16 24 Rate Respiratory Rate [Anterior Bilateral Throughout] Blood Pressure 122/70 112/68 119/60 O2 Sat by Pulse 100 100 100 Oximetry O2 Sat by Pulse Oximetry [ Anterior Bilateral Throughout] O2 Sat by Pulse Oximetry [ Assessment] 09/17/17 09/17/17 09/17/17 17:35 17:45 18:00 Temperature Pulse Rate 97 H 94 H Pulse Rate [ Anterior Bilateral Throughout] Respiratory 21 22 Rate Respiratory Rate [Anterior Bilateral Throughout] Blood Pressure 124/55 106/51 O2 Sat by Pulse 100 100 Oximetry O2 Sat by Pulse Oximetry [ Anterior Bilateral Throughout] O2 Sat by Pulse 96 Oximetry [ Assessment] 09/17/17 09/17/17 09/17/17 18:12 18:15 19:40 Temperature 98.1 F Pulse Rate 95 H Pulse Rate [ Anterior Bilateral Throughout] Respiratory 25 H 21 Rate Respiratory Rate [Anterior Bilateral Throughout] Blood Pressure 106/51 112/51 O2 Sat by Pulse 100 100 Oximetry O2 Sat by Pulse Oximetry [ Anterior Bilateral Throughout] O2 Sat by Pulse Oximetry [ Assessment] 09/17/17 20:00 Temperature Pulse Rate 93 H Pulse Rate [ 100 H Anterior Bilateral Throughout] Respiratory 21 Rate Respiratory 20 Rate [Anterior Bilateral Throughout] Blood Pressure 120/48 O2 Sat by Pulse 100 Oximetry O2 Sat by Pulse Oximetry [ Anterior Bilateral Throughout] O2 Sat by Pulse Oximetry [ Assessment] General appearance: Present: mild distress - EENT Eyes: PERRL, EOM intact ENT: hearing intact, clear oral mucosa Ears: bilateral: normal - Neck Neck: supple, normal ROM - Respiratory Respiratory: bilateral: diminished - Breasts Breasts: deferred - Cardiovascular Rhythm: regular Heart Sounds: Present: S1 & S2. Absent: gallop, rub Extremities: pulses intact, No edema, normal color, Full ROM - Gastrointestinal General gastrointestinal: Present: soft, non-tender, non-distended, normal bowel sounds Rectal Exam: deferred - Genitourinary Female genitourinary: deferred - Integumentary Integumentary: clear, warm, dry - Psychiatric Psychiatric: appropriate mood/affect - Labs CBC & Chem 7: 09/17/17 06:10 09/17/17 06:10 Labs: Abnormal lab results 09/16/17 09/16/17 09/16/17 Range/Units 11:49 17:04 23:18 WBC (4.5-11.0) K/mm3 RBC (3.65-5.03) M/mm3 Hgb (10.1-14.3) gm/dl Hct (30.3-42.9) % RDW (13.2-15.2) % Seg Neuts % (Manual) (40.0-70.0) % Lymphocytes % (Manual) (13.4-35.0) % Nucleated RBC % (0.0-0.9) % Seg Neutrophils # Man (1.8-7.7) K/mm3 Monocytes # (Manual) (0.0-0.8) K/mm3 BUN (7-17) mg/dL Creatinine (0.7-1.2) mg/dL Glucose (65-100) mg/dL POC Glucose 167 H 156 H 162 H (70-105) Calcium (8.4-10.2) mg/dL 09/17/17 09/17/17 09/17/17 Range/Units 05:27 06:10 06:10 WBC 34.6 H (4.5-11.0) K/mm3 RBC 2.75 L (3.65-5.03) M/mm3 Hgb 8.4 L (10.1-14.3) gm/dl Hct 24.8 L (30.3-42.9) % RDW 18.3 H (13.2-15.2) % Seg Neuts % (Manual) 77.0 H (40.0-70.0) % Lymphocytes % (Manual) 5.0 L (13.4-35.0) % Nucleated RBC % 2.0 H (0.0-0.9) % Seg Neutrophils # Man 26.6 H (1.8-7.7) K/mm3 Monocytes # (Manual) 2.4 H (0.0-0.8) K/mm3 BUN 82 H (7-17) mg/dL Creatinine 2.1 H (0.7-1.2) mg/dL Glucose 252 H (65-100) mg/dL POC Glucose 243 H (70-105) Calcium 8.3 L (8.4-10.2) mg/dL 09/17/17 Range/Units 11:42 WBC (4.5-11.0) K/mm3 RBC (3.65-5.03) M/mm3 Hgb (10.1-14.3) gm/dl Hct (30.3-42.9) % RDW (13.2-15.2) % Seg Neuts % (Manual) (40.0-70.0) % Lymphocytes % (Manual) (13.4-35.0) % Nucleated RBC % (0.0-0.9) % Seg Neutrophils # Man (1.8-7.7) K/mm3 Monocytes # (Manual) (0.0-0.8) K/mm3 BUN (7-17) mg/dL Creatinine (0.7-1.2) mg/dL Glucose (65-100) mg/dL POC Glucose 232 H (70-105) Calcium (8.4-10.2) mg/dL
[2017-09-18] MEDS: NOVOLOG SUB-Q SCH ×4 (01:18→18:39)
[2017-09-18] MEDS: DUONEB *Not for PRN Use IH SCH ×5 (02:27→20:38)
[2017-09-18 05:54] LABS: Hematocrit 23.2 % (30.3-42.9); Hemoglobin 7.8 gm/dl (10.1-14.3); Mean Corpuscular HGB Conc 34 % (30-34); Mean Corpuscular Hemoglobin 30 pg (28-32); Mean Corpuscular Volume 90 fl (79-97); Platelet Count 260 K/mm3 (140-440); Red Blood Count 2.57 M/mm3 (3.65-5.03); Red Cell Distribution Width 19.5 % (13.2-15.2)
[2017-09-18 06:07] LABS: White Blood Count 24.4 K/mm3 (4.5-11.0)
[2017-09-18 06:13] LABS: Calcium 8.9 mg/dL (8.4-10.2); Chloride 101.4 mmol/L (98-107); Potassium 4.3 mmol/L (3.6-5.0)
[2017-09-18 06:51] LABS: Basophils % (Manual) 0 % (0.0-1.8); Blastocytes % (Manual) 0 %; Eosinophils % (Manual) 0 % (0.0-4.3); Polychromasia Few
[2017-09-18 06:52] LABS: Anisocytosis 1+; Diff Status Complete; Platelet Estimate Consistent w Auto
--- NOTE | 2017-09-18 07:32 | Progress Note ---
Assessment and Plan - Patient Problems (1) ESRD (end stage renal disease) on dialysis Current Visit: Yes Status: Acute Plan to address problem: Continue HD on MWF and Isolated UF on TTS as tolerated. HD today. Mostly patient is tolerating fluid removal with hemodialysis. Patient is on TPN. (2) Hyperkalemia Current Visit: Yes Status: Acute Plan to address problem: Hemodialysis with 2K bath. (3) Anemia Current Visit: No Status: Chronic Qualifiers: Anemia type: due to chronic kidney disease Iron deficiency anemia type: I Vitamin B12 deficiency anemia type: V Folate deficiency anemia type: F Bone marrow failure anemia type: B Hemolytic anemia type: H Other causes of anemia: O Chronic kidney disease stage: on chronic dialysis Qualified Code(s ): N18.6 - End stage renal disease; D63.1 - Anemia in chronic kidney disease; Z99.2 - Dependence on renal dialysis Plan to address problem: S/p multiple units of PRBC. Epogen on dialysis days. Patient continues to drop Hb. (4) Hypotension Current Visit: Yes Status: Chronic Qualifiers: Hypotension type: H Trimester: T Plan to address problem: On Levophed. (5) Volume overload Current Visit: Yes Status: Acute Qualifiers: Hypervolemia type: H Plan to address problem: UF as tolerated. (6) Leukocytosis Current Visit: Yes Status: Acute Qualifiers: Leukocytosis type: unspecified Qualified Code(s): D72.829 - Elevated white blood cell count, unspecified (7) Acute respiratory failure with hypoxemia Current Visit: Yes Status: Acute Plan to address problem: On the vent. (8) Sepsis Current Visit: Yes Status: Acute Qualifiers: Sepsis type: S Subjective Date of service: 09/18/17 Principal diagnosis: respiratory failure, sepsis, shock rectal bleeding Interval history: Patient was seen and examined at the bedside. Remain on the vent. Objective - Vital Signs Vital signs: Vital Signs - 12hr 09/17/17 09/17/17 09/17/17 19:40 19:46 20:00 Temperature 98.1 F Pulse Rate 105 H 93 H Pulse Rate [ 100 H Anterior Bilateral Throughout] Respiratory 16 21 Rate Respiratory 20 Rate [Anterior Bilateral Throughout] Blood Pressure 122/52 120/48 O2 Sat by Pulse 99 100 Oximetry O2 Sat by Pulse Oximetry [ Assessment] 09/17/17 09/17/17 09/17/17 20:16 20:30 20:45 Temperature Pulse Rate 94 H 104 H 94 H Pulse Rate [ Anterior Bilateral Throughout] Respiratory 22 22 19 Rate Respiratory Rate [Anterior Bilateral Throughout] Blood Pressure 111/48 115/59 100/41 O2 Sat by Pulse 100 100 100 Oximetry O2 Sat by Pulse Oximetry [ Assessment] 09/17/17 09/17/17 09/17/17 21:00 21:15 21:30 Temperature Pulse Rate 93 H 93 H 93 H Pulse Rate [ Anterior Bilateral Throughout] Respiratory 16 23 19 Rate Respiratory Rate [Anterior Bilateral Throughout] Blood Pressure 113/48 117/47 117/48 O2 Sat by Pulse 100 100 100 Oximetry O2 Sat by Pulse Oximetry [ Assessment] 09/17/17 09/17/17 09/17/17 21:45 22:00 22:15 Temperature Pulse Rate 91 H 91 H 90 Pulse Rate [ Anterior Bilateral Throughout] Respiratory 18 20 20 Rate Respiratory Rate [Anterior Bilateral Throughout] Blood Pressure 124/50 116/48 113/51 O2 Sat by Pulse 100 100 100 Oximetry O2 Sat by Pulse Oximetry [ Assessment] 09/17/17 09/17/17 09/17/17 22:30 22:45 23:00 Temperature Pulse Rate 88 91 H 95 H Pulse Rate [ Anterior Bilateral Throughout] Respiratory 21 20 12 Rate Respiratory Rate [Anterior Bilateral Throughout] Blood Pressure 114/46 115/49 104/49 O2 Sat by Pulse 100 100 100 Oximetry O2 Sat by Pulse Oximetry [ Assessment] 09/17/17 09/17/17 09/17/17 23:15 23:19 23:30 Temperature Pulse Rate 90 90 Pulse Rate [ Anterior Bilateral Throughout] Respiratory 21 19 Rate Respiratory Rate [Anterior Bilateral Throughout] Blood Pressure 114/49 119/46 O2 Sat by Pulse 100 100 Oximetry O2 Sat by Pulse 100 Oximetry [ Assessment] 09/17/17 09/17/17 09/18/17 23:34 23:46 00:00 Temperature 98.2 F Pulse Rate 88 87 Pulse Rate [ Anterior Bilateral Throughout] Respiratory 20 18 Rate Respiratory Rate [Anterior Bilateral Throughout] Blood Pressure 128/47 118/49 O2 Sat by Pulse 100 100 Oximetry O2 Sat by Pulse Oximetry [ Assessment] 09/18/17 09/18/17 09/18/17 00:16 00:30 00:45 Temperature Pulse Rate 89 88 92 H Pulse Rate [ Anterior Bilateral Throughout] Respiratory 20 19 20 Rate Respiratory Rate [Anterior Bilateral Throughout] Blood Pressure 121/49 120/49 123/53 O2 Sat by Pulse 100 100 100 Oximetry O2 Sat by Pulse Oximetry [ Assessment] 09/18/17 09/18/17 09/18/17 01:00 01:16 01:30 Temperature Pulse Rate 86 94 H 84 Pulse Rate [ Anterior Bilateral Throughout] Respiratory 20 18 18 Rate Respiratory Rate [Anterior Bilateral Throughout] Blood Pressure 120/49 117/48 122/51 O2 Sat by Pulse 100 100 100 Oximetry O2 Sat by Pulse Oximetry [ Assessment] 09/18/17 09/18/17 09/18/17 01:46 02:00 02:10 Temperature Pulse Rate 87 88 Pulse Rate [ 100 H 98 H Anterior Bilateral Throughout] Respiratory 20 20 Rate Respiratory 20 20 Rate [Anterior Bilateral Throughout] Blood Pressure 126/50 124/52 O2 Sat by Pulse 100 100 Oximetry O2 Sat by Pulse Oximetry [ Assessment] 09/18/17 09/18/17 09/18/17 02:16 02:30 02:45 Temperature Pulse Rate 106 H 92 H 94 H Pulse Rate [ Anterior Bilateral Throughout] Respiratory 21 20 18 Rate Respiratory Rate [Anterior Bilateral Throughout] Blood Pressure 101/82 101/82 121/64 O2 Sat by Pulse 99 100 100 Oximetry O2 Sat by Pulse Oximetry [ Assessment] 09/18/17 09/18/17 09/18/17 03:00 03:15 03:16 Temperature 99.5 F Pulse Rate 90 94 H Pulse Rate [ Anterior Bilateral Throughout] Respiratory 19 20 Rate Respiratory Rate [Anterior Bilateral Throughout] Blood Pressure 125/62 122/48 O2 Sat by Pulse 100 100 Oximetry O2 Sat by Pulse Oximetry [ Assessment] 09/18/17 09/18/17 09/18/17 03:30 03:45 04:00 Temperature Pulse Rate 90 89 Pulse Rate [ Anterior Bilateral Throughout] Respiratory 19 18 20 Rate Respiratory Rate [Anterior Bilateral Throughout] Blood Pressure 123/46 124/51 119/48 O2 Sat by Pulse 100 100 100 Oximetry O2 Sat by Pulse Oximetry [ Assessment] 09/18/17 09/18/17 09/18/17 04:15 04:30 04:37 Temperature Pulse Rate 86 88 94 H Pulse Rate [ Anterior Bilateral Throughout] Respiratory 18 19 Rate Respiratory Rate [Anterior Bilateral Throughout] Blood Pressure 119/48 123/50 123/50 O2 Sat by Pulse 100 100 100 Oximetry O2 Sat by Pulse Oximetry [ Assessment] 09/18/17 09/18/17 09/18/17 04:46 04:51 05:00 Temperature Pulse Rate 92 H 92 H 84 Pulse Rate [ Anterior Bilateral Throughout] Respiratory 18 18 Rate Respiratory Rate [Anterior Bilateral Throughout] Blood Pressure 123/50 120/49 O2 Sat by Pulse 100 100 Oximetry O2 Sat by Pulse Oximetry [ Assessment] 09/18/17 09/18/17 09/18/17 05:16 05:30 05:46 Temperature Pulse Rate 93 H 109 H 96 H Pulse Rate [ Anterior Bilateral Throughout] Respiratory 20 14 13 Rate Respiratory Rate [Anterior Bilateral Throughout] Blood Pressure 120/49 128/53 114/47 O2 Sat by Pulse 100 100 100 Oximetry O2 Sat by Pulse Oximetry [ Assessment] 09/18/17 06:00 Temperature Pulse Rate 107 H Pulse Rate [ Anterior Bilateral Throughout] Respiratory 15 Rate Respiratory Rate [Anterior Bilateral Throughout] Blood Pressure 114/47 O2 Sat by Pulse 100 Oximetry O2 Sat by Pulse Oximetry [ Assessment] - General Appearance General appearance: well-developed, appears stated age, obese, other (right IJ temp catheter) EENT: ATNC, PERRL Neck: supple Respiratory: Present: Clear to Ascultation Cardiology: regular, S1S2, no murmurs Gastrointestinal: obese, other (dressing, ostomy noted) Integumentary: no rash Neurologic: other (opens eyes, grimaces) Musculoskeletal: other (1+ edema of both LEs) - Lab 09/18/17 05:10 09/18/17 05:10 Most recent lab results ABG pH 7.323 pH Units (7.350-7.450) L 09/09/17 Unknown ABG pCO2 41.1 mm Hg 09/09/17 Unknown ABG pO2 94.1 mm Hg (80.0-90.0) H 09/09/17 Unknown ABG HCO3 20.9 mmol/L (20.0-26.0) 09/09/17 Unknown ABG O2 Saturation 97.2 % (95.0-99.0) 09/09/17 Unknown Calcium 8.9 mg/dL (8.4-10.2) 09/18/17 05:10 Phosphorus 3.40 mg/dL (2.5-4.5) D 09/17/17 06:10 Magnesium 1.70 mg/dL (1.7-2.3) 09/16/17 05:30
[2017-09-18] MEDS ORDERED: NACL 0.9% 100 ML IV PRN (09:02)
--- NOTE | 2017-09-18 09:19 | Progress Note ---
Assessment and Plan 62 y/o female originally admitted with hypotension, now back to ICU secondary to worsening hypotension, concern for sepsis, with acute respiratory failure post-op from ex-lap for abdominal distention and possible ileus, now back from OR after worsening respiratory failure, requiring re-intubation and wash out of abdomen 1. Follow up cultures, currently on broad spectrum abx by ID 2. HD per renal, has been having at least 6x weekly. 3. Continue PSV trials as tolerated. Rest on rate while on HD 4. Recent Perf of colon with washout. Surgery continues to follow. 5. Wean Vasopressors for MAPS greater than 60-65. Unable to use abdomen at this time. 6. Steroids restarted last week, will start to wean again as surgery is concerned that steroids led to perf. 7. Patient continues to require occasional transfusions. Not a candidate for endoscopy at this time. Transfuse for HgB less than 7 Overall prognosis is guarded to poor CCT 31 Subjective Date of service: 09/18/17 Principal diagnosis: respiratory failure, sepsis, shock rectal bleeding Interval history: No acute events. Currently on PSV 10/29. Tolerating. No family currently at bedside. Still on [place] [facility] [place] Objective Vital Signs - 12hr 09/17/17 09/17/17 09/17/17 21:15 21:30 21:45 Temperature Pulse Rate 93 H 93 H 91 H Pulse Rate [ Anterior Bilateral Throughout] Respiratory 23 19 18 Rate Respiratory Rate [Anterior Bilateral Throughout] Blood Pressure 117/47 117/48 124/50 O2 Sat by Pulse 100 100 100 Oximetry O2 Sat by Pulse Oximetry [ Assessment] 09/17/17 09/17/17 09/17/17 22:00 22:15 22:30 Temperature Pulse Rate 91 H 90 88 Pulse Rate [ Anterior Bilateral Throughout] Respiratory 20 20 21 Rate Respiratory Rate [Anterior Bilateral Throughout] Blood Pressure 116/48 113/51 114/46 O2 Sat by Pulse 100 100 100 Oximetry O2 Sat by Pulse Oximetry [ Assessment] 09/17/17 09/17/17 09/17/17 22:45 23:00 23:15 Temperature Pulse Rate 91 H 95 H 90 Pulse Rate [ Anterior Bilateral Throughout] Respiratory 20 12 21 Rate Respiratory Rate [Anterior Bilateral Throughout] Blood Pressure 115/49 104/49 114/49 O2 Sat by Pulse 100 100 100 Oximetry O2 Sat by Pulse Oximetry [ Assessment] 09/17/17 09/17/17 09/17/17 23:19 23:30 23:34 Temperature 98.2 F Pulse Rate 90 Pulse Rate [ Anterior Bilateral Throughout] Respiratory 19 Rate Respiratory Rate [Anterior Bilateral Throughout] Blood Pressure 119/46 O2 Sat by Pulse 100 Oximetry O2 Sat by Pulse 100 Oximetry [ Assessment] 09/17/17 09/18/17 09/18/17 23:46 00:00 00:16 Temperature Pulse Rate 88 87 89 Pulse Rate [ Anterior Bilateral Throughout] Respiratory 20 18 20 Rate Respiratory Rate [Anterior Bilateral Throughout] Blood Pressure 128/47 118/49 121/49 O2 Sat by Pulse 100 100 100 Oximetry O2 Sat by Pulse Oximetry [ Assessment] 09/18/17 09/18/17 09/18/17 00:30 00:45 01:00 Temperature Pulse Rate 88 92 H 86 Pulse Rate [ Anterior Bilateral Throughout] Respiratory 19 20 20 Rate Respiratory Rate [Anterior Bilateral Throughout] Blood Pressure 120/49 123/53 120/49 O2 Sat by Pulse 100 100 100 Oximetry O2 Sat by Pulse Oximetry [ Assessment] 09/18/17 09/18/17 09/18/17 01:16 01:30 01:46 Temperature Pulse Rate 94 H 84 87 Pulse Rate [ Anterior Bilateral Throughout] Respiratory 18 18 20 Rate Respiratory Rate [Anterior Bilateral Throughout] Blood Pressure 117/48 122/51 126/50 O2 Sat by Pulse 100 100 100 Oximetry O2 Sat by Pulse Oximetry [ Assessment] 09/18/17 09/18/17 09/18/17 02:00 02:10 02:16 Temperature Pulse Rate 88 106 H Pulse Rate [ 100 H 98 H Anterior Bilateral Throughout] Respiratory 20 21 Rate Respiratory 20 20 Rate [Anterior Bilateral Throughout] Blood Pressure 124/52 101/82 O2 Sat by Pulse 100 99 Oximetry O2 Sat by Pulse Oximetry [ Assessment] 09/18/17 09/18/17 09/18/17 02:30 02:45 03:00 Temperature Pulse Rate 92 H 94 H 90 Pulse Rate [ Anterior Bilateral Throughout] Respiratory 20 18 19 Rate Respiratory Rate [Anterior Bilateral Throughout] Blood Pressure 101/82 121/64 125/62 O2 Sat by Pulse 100 100 100 Oximetry O2 Sat by Pulse Oximetry [ Assessment] 09/18/17 09/18/17 09/18/17 03:15 03:16 03:30 Temperature 99.5 F Pulse Rate 94 H Pulse Rate [ Anterior Bilateral Throughout] Respiratory 20 19 Rate Respiratory Rate [Anterior Bilateral Throughout] Blood Pressure 122/48 123/46 O2 Sat by Pulse 100 100 Oximetry O2 Sat by Pulse Oximetry [ Assessment] 09/18/17 09/18/17 09/18/17 03:45 04:00 04:15 Temperature Pulse Rate 90 89 86 Pulse Rate [ Anterior Bilateral Throughout] Respiratory 18 20 18 Rate Respiratory Rate [Anterior Bilateral Throughout] Blood Pressure 124/51 119/48 119/48 O2 Sat by Pulse 100 100 100 Oximetry O2 Sat by Pulse Oximetry [ Assessment] 09/18/17 09/18/17 09/18/17 04:30 04:37 04:46 Temperature Pulse Rate 88 94 H 92 H Pulse Rate [ Anterior Bilateral Throughout] Respiratory 19 18 Rate Respiratory Rate [Anterior Bilateral Throughout] Blood Pressure 123/50 123/50 123/50 O2 Sat by Pulse 100 100 100 Oximetry O2 Sat by Pulse Oximetry [ Assessment] 09/18/17 09/18/17 09/18/17 04:51 05:00 05:16 Temperature Pulse Rate 92 H 84 93 H Pulse Rate [ Anterior Bilateral Throughout] Respiratory 18 20 Rate Respiratory Rate [Anterior Bilateral Throughout] Blood Pressure 120/49 120/49 O2 Sat by Pulse 100 100 Oximetry O2 Sat by Pulse Oximetry [ Assessment] 09/18/17 09/18/17 09/18/17 05:30 05:46 06:00 Temperature Pulse Rate 109 H 96 H 107 H Pulse Rate [ Anterior Bilateral Throughout] Respiratory 14 13 15 Rate Respiratory Rate [Anterior Bilateral Throughout] Blood Pressure 128/53 114/47 114/47 O2 Sat by Pulse 100 100 100 Oximetry O2 Sat by Pulse Oximetry [ Assessment] 09/18/17 09/18/17 09/18/17 06:16 06:30 06:46 Temperature Pulse Rate 90 88 89 Pulse Rate [ Anterior Bilateral Throughout] Respiratory 19 15 24 Rate Respiratory Rate [Anterior Bilateral Throughout] Blood Pressure 114/47 121/53 121/53 O2 Sat by Pulse 100 100 100 Oximetry O2 Sat by Pulse Oximetry [ Assessment] 09/18/17 09/18/17 09/18/17 07:00 07:16 07:30 Temperature Pulse Rate 83 82 89 Pulse Rate [ Anterior Bilateral Throughout] Respiratory 19 19 16 Rate Respiratory Rate [Anterior Bilateral Throughout] Blood Pressure 137/53 129/54 137/53 O2 Sat by Pulse 100 100 89 Oximetry O2 Sat by Pulse Oximetry [ Assessment] 09/18/17 09/18/17 09/18/17 07:46 08:00 08:16 Temperature 98.4 F Pulse Rate 86 81 88 Pulse Rate [ Anterior Bilateral Throughout] Respiratory 21 19 12 Rate Respiratory Rate [Anterior Bilateral Throughout] Blood Pressure 132/57 129/51 135/59 O2 Sat by Pulse 100 92 98 Oximetry O2 Sat by Pulse Oximetry [ Assessment] 09/18/17 08:30 Temperature Pulse Rate 85 Pulse Rate [ Anterior Bilateral Throughout] Respiratory 19 Rate Respiratory Rate [Anterior Bilateral Throughout] Blood Pressure 126/53 O2 Sat by Pulse 100 Oximetry O2 Sat by Pulse Oximetry [ Assessment] Constitutional: no acute distress, alert, other (critically ill on vent, obese) Eyes: non-icteric ENT: oropharynx moist Neck: supple, no lymphadenopathy, no JVD (large neck), other (trach in position , no bleeding) Effort: mildly labored Ascultation: Bilateral: clear ( ), diminished breath sounds (Limited expansion) , wheezes (faint expiratory wheezes), rhonchi (sporadic), other (coarse BS bilaterally) Cardiovascular: regular rate and rhythm Gastrointestinal: absent bowel sounds, tender, other (abdominal incision with dressing , obese. Drain in place, no bleeding) Integumentary: normal Extremities: no cyanosis, pink and warm, edema Neurologic: non-focal exam, pupils equal and round Psychiatric: mood appropriate, affect normal CBC and BMP: 09/18/17 05:10 09/18/17 05:10 ABG, PT/INR, D-dimer: ABG POC ABG pH 7.347 (7.35-7.45) L 09/13/17 11:36 ABG pH 7.323 pH Units (7.350-7.450) L 09/09/17 Unknown POC ABG pCO2 34.3 (35-45) L 09/13/17 11:36 ABG pCO2 41.1 mm Hg 09/09/17 Unknown POC ABG pO2 134 (80-105) H 09/13/17 11:36 ABG pO2 94.1 mm Hg (80.0-90.0) H 09/09/17 Unknown POC ABG HCO3 18.8 09/13/17 11:36 POC ABG Total CO2 20 09/13/17 11:36 POC ABG O2 Sat 99 09/13/17 11:36 ABG O2 Saturation 97.2 % (95.0-99.0) 09/09/17 Unknown PT/INR, D-dimer PT 15.4 Sec. (12.2-14.9) H 09/15/17 12:45 INR 1.16 (0.87-1.13) H 09/15/17 12:45 Abnormal lab findings: Abnormal Labs 08/08/17 08/08/17 08/09/17 21:23 21:31 11:19 WBC 15.7 H RBC 2.93 L Hgb 8.7 L Hct 26.8 L MCV MCH RDW 19.2 H Plt Count Lymph % (Auto) [place] % (Auto) [place] # Seg Neutrophils % Seg Neuts % (Manual) Lymphocytes % (Manual) Monocytes % (Manual) Nucleated RBC % Seg Neutrophils # Seg Neutrophils # Man Lymphocytes # (Manual) Monocytes # (Manual) Eosinophils # (Manual) Basophils # (Manual) PT INR POC ABG pH 7.490 H ABG pH POC ABG pCO2 POC ABG pO2 122 H ABG pO2 ABG O2 Saturation ABG Base Excess ABG Hemoglobin Oxyhemoglobin Sodium Potassium Chloride Carbon Dioxide BUN Creatinine Glucose POC Glucose Calcium Phosphorus Magnesium Iron TIBC Ferritin Total Bilirubin AST ALT Alkaline Phosphatase Total Creatine Kinase Troponin T 0.133 H* C-Reactive Protein Total Protein Albumin Triglycerides HDL Cholesterol 26 L Miscellaneous Test Crossmatch 08/09/17 08/10/17 08/10/17 13:25 04:45 04:45 WBC 15.5 H RBC 2.97 L Hgb 8.9 L Hct 27.0 L MCV MCH RDW 19.2 H Plt Count Lymph % (Auto) [place] % (Auto) [place] # Seg Neutrophils % Seg Neuts % (Manual) 73.0 H Lymphocytes % (Manual) 7.0 L Monocytes % (Manual) 14.0 H Nucleated RBC % Seg Neutrophils # Seg Neutrophils # Man 11.3 H Lymphocytes # (Manual) 1.1 L Monocytes # (Manual) 2.2 H Eosinophils # (Manual) Basophils # (Manual) 0.2 H PT INR POC ABG pH ABG pH POC ABG pCO2 POC ABG pO2 ABG pO2 ABG O2 Saturation ABG Base Excess ABG Hemoglobin Oxyhemoglobin Sodium Potassium 3.3 L Chloride 97.3 L Carbon Dioxide 21 L BUN 23 H Creatinine 6.5 H Glucose POC Glucose Calcium 7.3 L Phosphorus Magnesium Iron TIBC Ferritin Total Bilirubin AST ALT Alkaline Phosphatase 138 H Total Creatine Kinase Troponin T 0.132 H* C-Reactive Protein Total Protein 4.8 L Albumin 1.4 L Triglycerides HDL Cholesterol Miscellaneous Test Crossmatch 08/11/17 08/11/17 08/12/17 04:00 04:00 05:50 WBC 19.3 H RBC 3.10 L Hgb 9.5 L Hct 28.2 L MCV MCH RDW 19.2 H Plt Count 463 H Lymph % (Auto) 7.5 L [place] % (Auto) 14.6 H [place] # 2.8 H Seg Neutrophils % 77.0 H Seg Neuts % (Manual) Lymphocytes % (Manual) Monocytes % (Manual) Nucleated RBC % Seg Neutrophils # 14.8 H Seg Neutrophils # Man Lymphocytes # (Manual) Monocytes # (Manual) Eosinophils # (Manual) Basophils # (Manual) PT INR POC ABG pH ABG pH POC ABG pCO2 POC ABG pO2 ABG pO2 ABG O2 Saturation ABG Base Excess ABG Hemoglobin Oxyhemoglobin Sodium 136 L 136 L Potassium 3.3 L Chloride 96.3 L 96.6 L Carbon Dioxide BUN 26 H 26 H Creatinine 6.4 H 6.2 H Glucose 135 H 133 H POC Glucose Calcium 8.2 L Phosphorus Magnesium 1.30 L Iron TIBC Ferritin Total Bilirubin AST ALT Alkaline Phosphatase 139 H Total Creatine Kinase Troponin T C-Reactive Protein Total Protein 5.5 L Albumin 1.7 L Triglycerides HDL Cholesterol Miscellaneous Test Crossmatch 08/12/17 08/12/17 08/12/17 05:50 05:50 05:50 WBC 20.1 H RBC 3.06 L Hgb 9.3 L Hct 27.9 L MCV MCH RDW 18.4 H Plt Count 471 H Lymph % (Auto) [place] % (Auto) [place] # Seg Neutrophils % Seg Neuts % (Manual) 85.0 H Lymphocytes % (Manual) 8.0 L Monocytes % (Manual) Nucleated RBC % Seg Neutrophils # Seg Neutrophils # Man 17.1 H Lymphocytes # (Manual) Monocytes # (Manual) 1.0 H Eosinophils # (Manual) Basophils # (Manual) PT 15.2 H INR 1.14 H POC ABG pH ABG pH POC ABG pCO2 POC ABG pO2 ABG pO2 ABG O2 Saturation ABG Base Excess ABG Hemoglobin Oxyhemoglobin Sodium Potassium Chloride Carbon Dioxide BUN Creatinine Glucose POC Glucose Calcium Phosphorus Magnesium Iron TIBC Ferritin Total Bilirubin AST ALT Alkaline Phosphatase Total Creatine Kinase Troponin T C-Reactive Protein 28.90 H Total Protein Albumin Triglycerides HDL Cholesterol Miscellaneous Test Crossmatch 08/12/17 08/13/17 08/13/17 16:23 06:14 06:14 WBC 21.8 H RBC 3.11 L Hgb 9.4 L Hct 28.2 L MCV MCH RDW 18.2 H Plt Count 492 H Lymph % (Auto) [place] % (Auto) [place] # Seg Neutrophils % Seg Neuts % (Manual) 73.0 H Lymphocytes % (Manual) 2.0 L Monocytes % (Manual) 15 H Nucleated RBC % Seg Neutrophils # Seg Neutrophils # Man 15.9 H Lymphocytes # (Manual) 0.4 L Monocytes # (Manual) 2.4 H Eosinophils # (Manual) Basophils # (Manual) PT INR POC ABG pH ABG pH POC ABG pCO2 POC ABG pO2 ABG pO2 ABG O2 Saturation ABG Base Excess ABG Hemoglobin Oxyhemoglobin Sodium Potassium Chloride 96.2 L Carbon Dioxide BUN 28 H Creatinine 5.6 H Glucose 114 H POC Glucose Calcium Phosphorus Magnesium Iron TIBC Ferritin Total Bilirubin AST ALT Alkaline Phosphatase Total Creatine Kinase Troponin T C-Reactive Protein 26.10 H Total Protein Albumin Triglycerides HDL Cholesterol Miscellaneous Test Crossmatch 08/13/17 08/14/17 08/14/17 16:39 04:00 04:00 WBC 22.1 H RBC 3.25 L Hgb 9.9 L Hct 29.5 L MCV MCH RDW 17.9 H Plt Count 525 H Lymph % (Auto) [place] % (Auto) [place] # Seg Neutrophils % Seg Neuts % (Manual) 74.0 H Lymphocytes % (Manual) 8.0 L Monocytes % (Manual) 12.0 H Nucleated RBC % Seg Neutrophils # Seg Neutrophils # Man 16.4 H Lymphocytes # (Manual) Monocytes # (Manual) 2.7 H Eosinophils # (Manual) Basophils # (Manual) PT INR POC ABG pH ABG pH POC ABG pCO2 POC ABG pO2 ABG pO2 ABG O2 Saturation ABG Base Excess ABG Hemoglobin Oxyhemoglobin Sodium 134 L Potassium 3.3 L Chloride 93.3 L Carbon Dioxide BUN 27 H Creatinine 6.0 H Glucose 152 H POC Glucose 151 H Calcium Phosphorus Magnesium Iron TIBC Ferritin Total Bilirubin AST ALT Alkaline Phosphatase Total Creatine Kinase Troponin T C-Reactive Protein Total Protein Albumin Triglycerides HDL Cholesterol Miscellaneous Test Crossmatch 08/15/17 08/16/17 08/16/17 09:10 09:50 09:50 WBC 31.1 H RBC 3.21 L Hgb 9.6 L Hct 29.3 L MCV MCH RDW 18.1 H Plt Count 642 H Lymph % (Auto) [place] % (Auto) [place] # Seg Neutrophils % Seg Neuts % (Manual) 74.0 H Lymphocytes % (Manual) 4.0 L Monocytes % (Manual) 9.0 H Nucleated RBC % Seg Neutrophils # Seg Neutrophils # Man 23.0 H Lymphocytes # (Manual) Monocytes # (Manual) 2.8 H Eosinophils # (Manual) Basophils # (Manual) PT INR POC ABG pH ABG pH POC ABG pCO2 POC ABG pO2 ABG pO2 ABG O2 Saturation ABG Base Excess ABG Hemoglobin Oxyhemoglobin Sodium 136 L 136 L Potassium 3.5 L Chloride 97.6 L 94.9 L Carbon Dioxide BUN 27 H 28 H Creatinine 5.6 H 5.5 H Glucose 117 H 103 H POC Glucose Calcium Phosphorus Magnesium Iron TIBC Ferritin Total Bilirubin AST ALT Alkaline Phosphatase 137 H Total Creatine Kinase Troponin T C-Reactive Protein Total Protein 5.4 L Albumin 1.5 L Triglycerides HDL Cholesterol Miscellaneous Test Crossmatch 08/16/17 08/17/17 08/17/17 09:50 05:00 06:26 WBC RBC Hgb Hct MCV MCH RDW Plt Count Lymph % (Auto) [place] % (Auto) [place] # Seg Neutrophils % Seg Neuts % (Manual) Lymphocytes % (Manual) Monocytes % (Manual) Nucleated RBC % Seg Neutrophils # Seg Neutrophils # Man Lymphocytes # (Manual) Monocytes # (Manual) Eosinophils # (Manual) Basophils # (Manual) PT INR POC ABG pH ABG pH POC ABG pCO2 POC ABG pO2 ABG pO2 ABG O2 Saturation ABG Base Excess ABG Hemoglobin Oxyhemoglobin Sodium 134 L Potassium 3.0 L Chloride 97.8 L Carbon Dioxide BUN 30 H Creatinine 5.3 H Glucose 147 H POC Glucose 165 H Calcium 7.5 L Phosphorus Magnesium Iron TIBC Ferritin Total Bilirubin AST ALT Alkaline Phosphatase Total Creatine Kinase Troponin T C-Reactive Protein 32.30 H Total Protein Albumin Triglycerides HDL Cholesterol Miscellaneous Test Crossmatch 08/17/17 08/17/1708/17/17 10:56 11:20 11:20 WBC 39.1 H RBC 3.10 L Hgb 9.2 L Hct 28.6 L MCV MCH RDW 18.3 H Plt Count 580 H Lymph % (Auto) [place] % (Auto) [place] # Seg Neutrophils % Seg Neuts % (Manual) 89.5 H Lymphocytes % (Manual) 3.5 L Monocytes % (Manual) Nucleated RBC % Seg Neutrophils # Seg Neutrophils # Man 35.0 H Lymphocytes # (Manual) Monocytes # (Manual) 2.5 H Eosinophils # (Manual) Basophils # (Manual) 0.2 H PT INR POC ABG pH 7.464 H ABG pH POC ABG pCO2 34.1 L POC ABG pO2 75 L ABG pO2 ABG O2 Saturation ABG Base Excess ABG Hemoglobin Oxyhemoglobin Sodium Potassium Chloride Carbon Dioxide BUN Creatinine Glucose POC Glucose Calcium Phosphorus Magnesium Iron TIBC Ferritin Total Bilirubin AST ALT Alkaline Phosphatase Total Creatine Kinase Troponin T C-Reactive Protein Total Protein Albumin Triglycerides HDL Cholesterol Miscellaneous Test Flexitest 1 H Crossmatch 08/17/17 08/17/17 08/17/17 11:20 16:57 20:20 WBC 34.4 H RBC 2.81 L Hgb 8.4 L Hct 26.0 L MCV MCH RDW 17.8 H Plt Count 455 H Lymph % (Auto) [place] % (Auto) [place] # Seg Neutrophils % Seg Neuts % (Manual) Lymphocytes % (Manual) 3.5 L Monocytes % (Manual) Nucleated RBC % 5.0 H Seg Neutrophils # Seg Neutrophils # Man 16.5 H Lymphocytes # (Manual) Monocytes # (Manual) 1.0 H Eosinophils # (Manual) Basophils # (Manual) PT 16.0 H INR 1.29 H POC ABG pH ABG pH POC ABG pCO2 POC ABG pO2 ABG pO2 ABG O2 Saturation ABG Base Excess ABG Hemoglobin Oxyhemoglobin Sodium 135 L Potassium 2.9 L* Chloride Carbon Dioxide 20 L BUN 32 H Creatinine 5.4 H Glucose 129 H POC Glucose Calcium 7.5 L Phosphorus Magnesium 1.50 L Iron TIBC Ferritin Total Bilirubin AST 85 H ALT Alkaline Phosphatase Total Creatine Kinase Troponin T C-Reactive Protein Total Protein 4.0 L D Albumin 1.6 L Triglycerides HDL Cholesterol Miscellaneous Test Crossmatch 08/17/17 08/17/17 08/18/17 20:54 23:47 04:26 WBC RBC Hgb Hct MCV MCH RDW Plt Count Lymph % (Auto) [place] % (Auto) [place] # Seg Neutrophils % Seg Neuts % (Manual) Lymphocytes % (Manual) Monocytes % (Manual) Nucleated RBC % Seg Neutrophils # Seg Neutrophils # Man Lymphocytes # (Manual) Monocytes # (Manual) Eosinophils # (Manual) Basophils # (Manual) PT INR POC ABG pH 7.557 H ABG pH POC ABG pCO2 23.1 L 29.0 L POC ABG pO2 187 H 148 H ABG pO2 ABG O2 Saturation ABG Base Excess ABG Hemoglobin Oxyhemoglobin Sodium Potassium Chloride Carbon Dioxide BUN Creatinine Glucose POC Glucose 188 H Calcium Phosphorus Magnesium Iron TIBC Ferritin Total Bilirubin AST ALT Alkaline Phosphatase Total Creatine Kinase Troponin T C-Reactive Protein Total Protein Albumin Triglycerides HDL Cholesterol Miscellaneous Test Crossmatch 08/18/17 08/18/17 08/18/17 05:51 11:44 17:07 WBC RBC Hgb Hct MCV MCH RDW Plt Count Lymph % (Auto) [place] % (Auto) [place] # Seg Neutrophils % Seg Neuts % (Manual) Lymphocytes % (Manual) Monocytes % (Manual) Nucleated RBC % Seg Neutrophils # Seg Neutrophils # Man Lymphocytes # (Manual) Monocytes # (Manual) Eosinophils # (Manual) Basophils # (Manual) PT INR POC ABG pH ABG pH POC ABG pCO2 POC ABG pO2 ABG pO2 ABG O2 Saturation ABG Base Excess ABG Hemoglobin Oxyhemoglobin Sodium Potassium Chloride Carbon Dioxide BUN Creatinine Glucose POC Glucose 202 H 195 H 182 H Calcium Phosphorus Magnesium Iron TIBC Ferritin Total Bilirubin AST ALT Alkaline Phosphatase Total Creatine Kinase Troponin T C-Reactive Protein Total Protein Albumin Triglycerides HDL Cholesterol Miscellaneous Test Crossmatch 08/18/17 08/18/17 08/18/17 23:45 Unknown Unknown WBC 39.0 H RBC 2.84 L Hgb 8.4 L Hct 26.5 L MCV MCH RDW 18.0 H Plt Count 476 H Lymph % (Auto) [place] % (Auto) [place] # Seg Neutrophils % Seg Neuts % (Manual) Lymphocytes % (Manual) 7.0 L Monocytes % (Manual) 10.0 H Nucleated RBC % 3.0 H Seg Neutrophils # Seg Neutrophils # Man 15.6 H Lymphocytes # (Manual) Monocytes # (Manual) 3.9 H Eosinophils # (Manual) Basophils # (Manual) PT INR POC ABG pH ABG pH POC ABG pCO2 POC ABG pO2 ABG pO2 ABG O2 Saturation ABG Base Excess ABG Hemoglobin Oxyhemoglobin Sodium Potassium Chloride Carbon Dioxide 19 L BUN 34 H Creatinine 5.6 H Glucose 201 H POC Glucose 163 H Calcium 7.8 L Phosphorus 1.90 L D Magnesium 1.60 L Iron TIBC Ferritin Total Bilirubin AST ALT Alkaline Phosphatase Total Creatine Kinase Troponin T C-Reactive Protein Total Protein Albumin Triglycerides HDL Cholesterol Miscellaneous Test Crossmatch 08/19/17 08/19/17 08/19/17 04:18 05:00 05:00 WBC 40.0 H RBC 2.46 L Hgb 7.3 L Hct 22.6 L MCV MCH RDW 18.1 H Plt Count Lymph % (Auto) [place] % (Auto) [place] # Seg Neutrophils % Seg Neuts % (Manual) Lymphocytes % (Manual) 8.0 L Monocytes % (Manual) Nucleated RBC % 2.0 H Seg Neutrophils # Seg Neutrophils # Man 16.4 H Lymphocytes # (Manual) Monocytes # (Manual) 1.2 H Eosinophils # (Manual) 1.2 H Basophils # (Manual) PT INR POC ABG pH 7.463 H ABG pH POC ABG pCO2 29.7 L POC ABG pO2 134 H ABG pO2 ABG O2 Saturation ABG Base Excess ABG Hemoglobin Oxyhemoglobin Sodium Potassium 5.1 H D Chloride Carbon Dioxide 20 L BUN 40 H Creatinine 5.3 H Glucose 128 H POC Glucose Calcium 7.8 L Phosphorus 1.90 L Magnesium Iron TIBC Ferritin Total Bilirubin AST ALT Alkaline Phosphatase Total Creatine Kinase Troponin T C-Reactive Protein Total Protein Albumin Triglycerides HDL Cholesterol Miscellaneous Test Crossmatch 08/19/17 08/19/17 08/19/17 05:19 07:37 09:52 WBC 45.0 H* RBC 2.50 L Hgb 7.5 L Hct 24.5 L MCV 98 H MCH RDW 18.4 H Plt Count Lymph % (Auto) [place] % (Auto) [place] # Seg Neutrophils % Seg Neuts % (Manual) 81.5 H Lymphocytes % (Manual) 4.0 L Monocytes % (Manual) Nucleated RBC % 1.0 H Seg Neutrophils # Seg Neutrophils # Man 36.7 H Lymphocytes # (Manual) Monocytes # (Manual) Eosinophils # (Manual) Basophils # (Manual) PT INR POC ABG pH ABG pH POC ABG pCO2 POC ABG pO2 ABG pO2 ABG O2 Saturation ABG Base Excess ABG Hemoglobin Oxyhemoglobin Sodium Potassium Chloride Carbon Dioxide BUN Creatinine Glucose POC Glucose 142 H Calcium Phosphorus Magnesium Iron TIBC Ferritin Total Bilirubin AST ALT Alkaline Phosphatase Total Creatine Kinase Troponin T C-Reactive Protein 34.20 H Total Protein Albumin Triglycerides HDL Cholesterol Miscellaneous Test Crossmatch 08/19/17 08/19/17 08/20/17 11:16 18:12 00:35 WBC RBC Hgb Hct MCV MCH RDW Plt Count Lymph % (Auto) [place] % (Auto) [place] # Seg Neutrophils % Seg Neuts % (Manual) Lymphocytes % (Manual) Monocytes % (Manual) Nucleated RBC % Seg Neutrophils # Seg Neutrophils # Man Lymphocytes # (Manual) Monocytes # (Manual) Eosinophils # (Manual) Basophils # (Manual) PT INR POC ABG pH ABG pH POC ABG pCO2 POC ABG pO2 ABG pO2 ABG O2 Saturation ABG Base Excess ABG Hemoglobin Oxyhemoglobin Sodium Potassium Chloride Carbon Dioxide BUN Creatinine Glucose POC Glucose 143 H 137 H 164 H Calcium Phosphorus Magnesium Iron TIBC Ferritin Total Bilirubin AST ALT Alkaline Phosphatase Total Creatine Kinase Troponin T C-Reactive Protein Total Protein Albumin Triglycerides HDL Cholesterol Miscellaneous Test Crossmatch 08/20/17 08/20/17 08/20/17 03:20 03:20 04:00 WBC 48.0 H* RBC 2.55 L Hgb 7.6 L Hct 23.4 L MCV MCH RDW 18.4 H Plt Count Lymph % (Auto) [place] % (Auto) [place] # Seg Neutrophils % Seg Neuts % (Manual) 90.0 H Lymphocytes % (Manual) 3.0 L Monocytes % (Manual) Nucleated RBC % Seg Neutrophils # Seg Neutrophils # Man 43.2 H Lymphocytes # (Manual) Monocytes # (Manual) 1.4 H Eosinophils # (Manual) 0.5 H Basophils # (Manual) PT INR POC ABG pH 7.499 H ABG pH POC ABG pCO2 29.1 L POC ABG pO2 ABG pO2 ABG O2 Saturation ABG Base Excess ABG Hemoglobin Oxyhemoglobin Sodium 135 L Potassium Chloride Carbon Dioxide BUN 28 H Creatinine 4.0 H Glucose 140 H POC Glucose Calcium 8.0 L Phosphorus 1.70 L Magnesium 1.60 L Iron TIBC Ferritin Total Bilirubin AST ALT Alkaline Phosphatase Total Creatine Kinase Troponin T C-Reactive Protein Total Protein Albumin Triglycerides HDL Cholesterol Miscellaneous Test Crossmatch 08/20/17 08/20/17 08/20/17 05:02 12:05 13:12 WBC RBC Hgb Hct MCV MCH RDW Plt Count Lymph % (Auto) [place] % (Auto) [place] # Seg Neutrophils % Seg Neuts % (Manual) Lymphocytes % (Manual) Monocytes % (Manual) Nucleated RBC % Seg Neutrophils # Seg Neutrophils # Man Lymphocytes # (Manual) Monocytes # (Manual) Eosinophils # (Manual) Basophils # (Manual) PT INR POC ABG pH 7.537 H ABG pH POC ABG pCO2 27.9 L POC ABG pO2 79 L ABG pO2 ABG O2 Saturation ABG Base Excess ABG Hemoglobin Oxyhemoglobin Sodium Potassium Chloride Carbon Dioxide BUN Creatinine Glucose POC Glucose 158 H 203 H Calcium Phosphorus Magnesium Iron TIBC Ferritin Total Bilirubin AST ALT Alkaline Phosphatase Total Creatine Kinase Troponin T C-Reactive Protein Total Protein Albumin Triglycerides HDL Cholesterol Miscellaneous Test Crossmatch 08/20/17 08/21/17 08/21/17 17:13 00:47 03:14 WBC RBC Hgb Hct MCV MCH RDW Plt Count Lymph % (Auto) [place] % (Auto) [place] # Seg Neutrophils % Seg Neuts % (Manual) Lymphocytes % (Manual) Monocytes % (Manual) Nucleated RBC % Seg Neutrophils # Seg Neutrophils # Man Lymphocytes # (Manual) Monocytes # (Manual) Eosinophils # (Manual) Basophils # (Manual) PT INR POC ABG pH 7.481 H ABG pH POC ABG pCO2 29.6 L POC ABG pO2 ABG pO2 ABG O2 Saturation ABG Base Excess ABG Hemoglobin Oxyhemoglobin Sodium Potassium Chloride Carbon Dioxide BUN Creatinine Glucose POC Glucose 188 H 109 H Calcium Phosphorus Magnesium Iron TIBC Ferritin Total Bilirubin AST ALT Alkaline Phosphatase Total Creatine Kinase Troponin T C-Reactive Protein Total Protein Albumin Triglycerides HDL Cholesterol Miscellaneous Test Crossmatch 08/21/17 08/21/17 08/21/17 05:05 06:50 06:50 WBC 44.7 H* RBC 2.41 L Hgb 7.1 L Hct 22.1 L MCV MCH RDW 18.3 H Plt Count Lymph % (Auto) [place] % (Auto) [place] # Seg Neutrophils % Seg Neuts % (Manual) 89.0 H Lymphocytes % (Manual) 0 L Monocytes % (Manual) Nucleated RBC % 1.0 H Seg Neutrophils # Seg Neutrophils # Man 39.8 H Lymphocytes # (Manual) 0.0 L Monocytes # (Manual) 1.3 H Eosinophils # (Manual) Basophils # (Manual) PT INR POC ABG pH ABG pH POC ABG pCO2 POC ABG pO2 ABG pO2 ABG O2 Saturation ABG Base Excess ABG Hemoglobin Oxyhemoglobin Sodium 135 L Potassium Chloride Carbon Dioxide BUN 39 H Creatinine 4.4 H Glucose 147 H POC Glucose 166 H Calcium 8.1 L Phosphorus Magnesium Iron TIBC Ferritin Total Bilirubin AST ALT < 5 L Alkaline Phosphatase 164 H Total Creatine Kinase Troponin T C-Reactive Protein Total Protein 4.7 L Albumin 1.4 L Triglycerides HDL Cholesterol Miscellaneous Test Crossmatch 08/21/17 08/21/17 08/21/17 08:00 12:21 17:02 WBC RBC Hgb Hct MCV MCH RDW Plt Count Lymph % (Auto) [place] % (Auto) [place] # Seg Neutrophils % Seg Neuts % (Manual) Lymphocytes % (Manual) Monocytes % (Manual) Nucleated RBC % Seg Neutrophils # Seg Neutrophils # Man Lymphocytes # (Manual) Monocytes # (Manual) Eosinophils # (Manual) Basophils # (Manual) PT INR POC ABG pH ABG pH POC ABG pCO2 POC ABG pO2 ABG pO2 ABG O2 Saturation ABG Base Excess ABG Hemoglobin Oxyhemoglobin Sodium Potassium Chloride Carbon Dioxide BUN Creatinine Glucose POC Glucose 147 H 135 H Calcium Phosphorus Magnesium Iron TIBC Ferritin Total Bilirubin AST ALT Alkaline Phosphatase Total Creatine Kinase Troponin T C-Reactive Protein Total Protein Albumin Triglycerides HDL Cholesterol Miscellaneous Test Crossmatch See Detail 08/21/17 08/22/17 08/22/17 23:38 03:40 03:40 WBC 42.5 H* RBC 2.88 L Hgb 8.5 L Hct 26.3 L MCV MCH RDW 17.9 H Plt Count Lymph % (Auto) [place] % (Auto) [place] # Seg Neutrophils % Seg Neuts % (Manual) Lymphocytes % (Manual) 5.0 L Monocytes % (Manual) Nucleated RBC % Seg Neutrophils # Seg Neutrophils # Man 19.6 H Lymphocytes # (Manual) Monocytes # (Manual) 2.6 H Eosinophils # (Manual) Basophils # (Manual) PT INR POC ABG pH ABG pH POC ABG pCO2 POC ABG pO2 ABG pO2 ABG O2 Saturation ABG Base Excess ABG Hemoglobin Oxyhemoglobin Sodium Potassium 3.3 L D Chloride Carbon Dioxide BUN 27 H Creatinine 2.9 H Glucose 144 H POC Glucose 251 H Calcium 8.0 L Phosphorus 2.40 L Magnesium Iron TIBC Ferritin Total Bilirubin AST ALT Alkaline Phosphatase Total Creatine Kinase Troponin T C-Reactive Protein Total Protein Albumin Triglycerides HDL Cholesterol Miscellaneous Test Crossmatch 08/22/17 08/22/17 08/22/17 06:37 08:50 11:25 WBC RBC Hgb Hct MCV MCH RDW Plt Count Lymph % (Auto) [place] % (Auto) [place] # Seg Neutrophils % Seg Neuts % (Manual) Lymphocytes % (Manual) Monocytes % (Manual) Nucleated RBC % Seg Neutrophils # Seg Neutrophils # Man Lymphocytes # (Manual) Monocytes # (Manual) Eosinophils # (Manual) Basophils # (Manual) PT INR POC ABG pH ABG pH POC ABG pCO2 POC ABG pO2 ABG pO2 ABG O2 Saturation ABG Base Excess ABG Hemoglobin Oxyhemoglobin Sodium Potassium Chloride Carbon Dioxide BUN Creatinine Glucose POC Glucose 152 H 175 H Calcium Phosphorus Magnesium Iron TIBC Ferritin Total Bilirubin AST ALT Alkaline Phosphatase Total Creatine Kinase Troponin T C-Reactive Protein Total Protein Albumin Triglycerides HDL Cholesterol Miscellaneous Test Flexitest 1 H Crossmatch 08/22/17 08/22/17 08/22/17 16:25 17:56 23:03 WBC RBC Hgb Hct MCV MCH RDW Plt Count Lymph % (Auto) [place] % (Auto) [place] # Seg Neutrophils % Seg Neuts % (Manual) Lymphocytes % (Manual) Monocytes % (Manual) Nucleated RBC % Seg Neutrophils # Seg Neutrophils # Man Lymphocytes # (Manual) Monocytes # (Manual) Eosinophils # (Manual) Basophils # (Manual) PT INR POC ABG pH ABG pH POC ABG pCO2 POC ABG pO2 ABG pO2 ABG O2 Saturation ABG Base Excess ABG Hemoglobin Oxyhemoglobin Sodium Potassium Chloride Carbon Dioxide BUN Creatinine Glucose POC Glucose 232 H 192 H Calcium Phosphorus Magnesium Iron TIBC Ferritin Total Bilirubin AST ALT Alkaline Phosphatase Total Creatine Kinase Troponin T C-Reactive Protein 30.70 H Total Protein Albumin Triglycerides HDL Cholesterol Miscellaneous Test Crossmatch 08/23/17 08/23/17 08/23/17 05:36 08:50 12:14 WBC RBC Hgb Hct MCV MCH RDW Plt Count Lymph % (Auto) [place] % (Auto) [place] # Seg Neutrophils % Seg Neuts % (Manual) Lymphocytes % (Manual) Monocytes % (Manual) Nucleated RBC % Seg Neutrophils # Seg Neutrophils # Man Lymphocytes # (Manual) Monocytes # (Manual) Eosinophils # (Manual) Basophils # (Manual) PT INR POC ABG pH ABG pH POC ABG pCO2 POC ABG pO2 ABG pO2 ABG O2 Saturation ABG Base Excess ABG Hemoglobin Oxyhemoglobin Sodium Potassium Chloride 107.1 H Carbon Dioxide BUN 49 H Creatinine 3.3 H Glucose 172 H POC Glucose 206 H 238 H Calcium Phosphorus Magnesium 2.40 H Iron TIBC Ferritin Total Bilirubin AST ALT Alkaline Phosphatase Total Creatine Kinase Troponin T C-Reactive Protein Total Protein Albumin Triglycerides HDL Cholesterol Miscellaneous Test Crossmatch 08/23/17 08/23/17 08/24/17 17:21 23:13 04:00 WBC 34.2 H RBC 2.86 L Hgb 8.4 L Hct 25.9 L MCV MCH RDW 17.9 H Plt Count Lymph % (Auto) [place] % (Auto) [place] # Seg Neutrophils % Seg Neuts % (Manual) 85.0 H Lymphocytes % (Manual) 0.5 L Monocytes % (Manual) Nucleated RBC % 1.0 H Seg Neutrophils # Seg Neutrophils # Man 29.1 H Lymphocytes # (Manual) 0.2 L Monocytes # (Manual) 2.4 H Eosinophils # (Manual) Basophils # (Manual) PT INR POC ABG pH ABG pH POC ABG pCO2 POC ABG pO2 ABG pO2 ABG O2 Saturation ABG Base Excess ABG Hemoglobin Oxyhemoglobin Sodium Potassium Chloride Carbon Dioxide BUN Creatinine Glucose POC Glucose 226 H 183 H Calcium Phosphorus Magnesium Iron TIBC Ferritin Total Bilirubin AST ALT Alkaline Phosphatase Total Creatine Kinase Troponin T C-Reactive Protein Total Protein Albumin Triglycerides HDL Cholesterol Miscellaneous Test Crossmatch 08/24/17 08/24/17 08/24/17 05:06 09:30 12:04 WBC RBC Hgb Hct MCV MCH RDW Plt Count Lymph % (Auto) [place] % (Auto) [place] # Seg Neutrophils % Seg Neuts % (Manual) Lymphocytes % (Manual) Monocytes % (Manual) Nucleated RBC % Seg Neutrophils # Seg Neutrophils # Man Lymphocytes # (Manual) Monocytes # (Manual) Eosinophils # (Manual) Basophils # (Manual) PT INR POC ABG pH ABG pH POC ABG pCO2 POC ABG pO2 ABG pO2 ABG O2 Saturation ABG Base Excess ABG Hemoglobin Oxyhemoglobin Sodium Potassium Chloride Carbon Dioxide BUN 46 H Creatinine 2.5 H Glucose 176 H POC Glucose 201 H 181 H Calcium Phosphorus Magnesium Iron TIBC Ferritin Total Bilirubin AST ALT Alkaline Phosphatase Total Creatine Kinase Troponin T C-Reactive Protein Total Protein Albumin Triglycerides HDL Cholesterol Miscellaneous Test Crossmatch 08/24/17 08/24/17 08/25/17 18:04 23:05 05:05 WBC RBC Hgb Hct MCV MCH RDW Plt Count Lymph % (Auto) [place] % (Auto) [place] # Seg Neutrophils % Seg Neuts % (Manual) Lymphocytes % (Manual) Monocytes % (Manual) Nucleated RBC % Seg Neutrophils # Seg Neutrophils # Man Lymphocytes # (Manual) Monocytes # (Manual) Eosinophils # (Manual) Basophils # (Manual) PT INR POC ABG pH ABG pH POC ABG pCO2 POC ABG pO2 ABG pO2 ABG O2 Saturation ABG Base Excess ABG Hemoglobin Oxyhemoglobin Sodium Potassium Chloride Carbon Dioxide BUN Creatinine Glucose POC Glucose 189 H 175 H 190 H Calcium Phosphorus Magnesium Iron TIBC Ferritin Total Bilirubin AST ALT Alkaline Phosphatase Total Creatine Kinase Troponin T C-Reactive Protein Total Protein Albumin Triglycerides HDL Cholesterol Miscellaneous Test Crossmatch 08/25/17 08/25/17 08/26/17 07:02 11:53 05:30 WBC 33.5 H RBC 2.47 L Hgb 7.3 L Hct 23.0 L MCV MCH RDW 21.3 H Plt Count Lymph % (Auto) [place] % (Auto) [place] # Seg Neutrophils % Seg Neuts % (Manual) 92.0 H Lymphocytes % (Manual) 1.0 L Monocytes % (Manual) Nucleated RBC % Seg Neutrophils # Seg Neutrophils # Man 30.8 H Lymphocytes # (Manual) 0.3 L Monocytes # (Manual) Eosinophils # (Manual) Basophils # (Manual) PT INR POC ABG pH ABG pH POC ABG pCO2 POC ABG pO2 ABG pO2 ABG O2 Saturation ABG Base Excess ABG Hemoglobin Oxyhemoglobin Sodium Potassium Chloride Carbon Dioxide BUN 32 H Creatinine 5.0 H D Glucose 117 H POC Glucose 191 H Calcium 8.0 L Phosphorus Magnesium Iron TIBC Ferritin Total Bilirubin AST ALT Alkaline Phosphatase Total Creatine Kinase Troponin T C-Reactive Protein Total Protein Albumin Triglycerides HDL Cholesterol Miscellaneous Test Crossmatch 08/26/17 08/26/17 08/26/17 05:30 06:44 13:26 WBC RBC Hgb Hct MCV MCH RDW Plt Count Lymph % (Auto) [place] % (Auto) [place] # Seg Neutrophils % Seg Neuts % (Manual) Lymphocytes % (Manual) Monocytes % (Manual) Nucleated RBC % Seg Neutrophils # Seg Neutrophils # Man Lymphocytes # (Manual) Monocytes # (Manual) Eosinophils # (Manual) Basophils # (Manual) PT INR POC ABG pH ABG pH POC ABG pCO2 POC ABG pO2 ABG pO2 ABG O2 Saturation ABG Base Excess ABG Hemoglobin Oxyhemoglobin Sodium Potassium 5.2 H Chloride Carbon Dioxide BUN 80 H Creatinine 3.4 H Glucose 193 H POC Glucose 232 H 207 H Calcium 8.3 L Phosphorus 6.80 H D Magnesium 2.60 H Iron TIBC Ferritin Total Bilirubin AST 135 H ALT Alkaline Phosphatase 211 H Total Creatine Kinase Troponin T C-Reactive Protein Total Protein 4.8 L Albumin 2.0 L Triglycerides HDL Cholesterol Miscellaneous Test Crossmatch 08/27/17 08/27/17 08/27/17 01:08 06:20 06:20 WBC 35.0 H RBC 2.75 L Hgb 8.4 L Hct 25.1 L MCV MCH RDW 21.8 H Plt Count Lymph % (Auto) [place] % (Auto) [place] # Seg Neutrophils % Seg Neuts % (Manual) Lymphocytes % (Manual) 4.5 L Monocytes % (Manual) Nucleated RBC % Seg Neutrophils # Seg Neutrophils # Man 31.9 H Lymphocytes # (Manual) Monocytes # (Manual) 1.2 H Eosinophils # (Manual) Basophils # (Manual) PT INR POC ABG pH ABG pH POC ABG pCO2 POC ABG pO2 ABG pO2 ABG O2 Saturation ABG Base Excess ABG Hemoglobin Oxyhemoglobin Sodium Potassium Chloride Carbon Dioxide BUN 61 H Creatinine 2.6 H Glucose 184 H POC Glucose 146 H Calcium Phosphorus 4.90 H D Magnesium Iron TIBC Ferritin Total Bilirubin AST ALT Alkaline Phosphatase Total Creatine Kinase Troponin T C-Reactive Protein Total Protein Albumin Triglycerides HDL Cholesterol Miscellaneous Test Crossmatch 08/27/17 08/27/17 08/27/17 07:01 09:17 12:52 WBC RBC Hgb Hct MCV MCH RDW Plt Count Lymph % (Auto) [place] % (Auto) [place] # Seg Neutrophils % Seg Neuts % (Manual) Lymphocytes % (Manual) Monocytes % (Manual) Nucleated RBC % Seg Neutrophils # Seg Neutrophils # Man Lymphocytes # (Manual) Monocytes # (Manual) Eosinophils # (Manual) Basophils # (Manual) PT INR POC ABG pH ABG pH POC ABG pCO2 POC ABG pO2 ABG pO2 ABG O2 Saturation ABG Base Excess ABG Hemoglobin Oxyhemoglobin Sodium Potassium Chloride Carbon Dioxide BUN Creatinine Glucose POC Glucose 165 H 198 H 218 H Calcium Phosphorus Magnesium Iron TIBC Ferritin Total Bilirubin AST ALT Alkaline Phosphatase Total Creatine Kinase Troponin T C-Reactive Protein Total Protein Albumin Triglycerides HDL Cholesterol Miscellaneous Test Crossmatch 08/27/17 08/28/17 08/28/17 17:27 02:13 06:46 WBC RBC Hgb Hct MCV MCH RDW Plt Count Lymph % (Auto) [place] % (Auto) [place] # Seg Neutrophils % Seg Neuts % (Manual) Lymphocytes % (Manual) Monocytes % (Manual) Nucleated RBC % Seg Neutrophils # Seg Neutrophils # Man Lymphocytes # (Manual) Monocytes # (Manual) Eosinophils # (Manual) Basophils # (Manual) PT INR POC ABG pH ABG pH POC ABG pCO2 POC ABG pO2 ABG pO2 ABG O2 Saturation ABG Base Excess ABG Hemoglobin Oxyhemoglobin Sodium Potassium Chloride Carbon Dioxide BUN Creatinine Glucose POC Glucose 151 H 155 H 230 H Calcium Phosphorus Magnesium Iron TIBC Ferritin Total Bilirubin AST ALT Alkaline Phosphatase Total Creatine Kinase Troponin T C-Reactive Protein Total Protein Albumin Triglycerides HDL Cholesterol Miscellaneous Test Crossmatch 08/28/17 08/28/17 08/28/17 06:53 06:53 08:19 WBC 31.1 H RBC 2.26 L Hgb 6.8 L Hct 20.9 L MCV MCH RDW 21.7 H Plt Count Lymph % (Auto) [place] % (Auto) [place] # Seg Neutrophils % Seg Neuts % (Manual) 83.0 H Lymphocytes % (Manual) 4.0 L Monocytes % (Manual) Nucleated RBC % Seg Neutrophils # Seg Neutrophils # Man 25.8 H Lymphocytes # (Manual) Monocytes # (Manual) Eosinophils # (Manual) Basophils # (Manual) PT INR POC ABG pH ABG pH POC ABG pCO2 POC ABG pO2 ABG pO2 ABG O2 Saturation ABG Base Excess ABG Hemoglobin Oxyhemoglobin Sodium Potassium Chloride Carbon Dioxide BUN 81 H Creatinine 3.4 H Glucose 218 H POC Glucose 239 H Calcium Phosphorus 4.90 H Magnesium Iron TIBC Ferritin Total Bilirubin AST ALT Alkaline Phosphatase Total Creatine Kinase Troponin T C-Reactive Protein Total Protein Albumin Triglycerides HDL Cholesterol Miscellaneous Test Crossmatch 08/28/17 08/28/17 08/28/17 11:56 13:05 13:29 WBC RBC Hgb Hct MCV MCH RDW Plt Count Lymph % (Auto) [place] % (Auto) [place] # Seg Neutrophils % Seg Neuts % (Manual) Lymphocytes % (Manual) Monocytes % (Manual) Nucleated RBC % Seg Neutrophils # Seg Neutrophils # Man Lymphocytes # (Manual) Monocytes # (Manual) Eosinophils # (Manual) Basophils # (Manual) PT 16.7 H INR 1.29 H POC ABG pH ABG pH POC ABG pCO2 POC ABG pO2 338 H ABG pO2 ABG O2 Saturation ABG Base Excess ABG Hemoglobin Oxyhemoglobin Sodium Potassium Chloride Carbon Dioxide BUN Creatinine Glucose POC Glucose Calcium Phosphorus Magnesium Iron TIBC Ferritin Total Bilirubin AST ALT Alkaline Phosphatase Total Creatine Kinase Troponin T C-Reactive Protein Total Protein Albumin Triglycerides HDL Cholesterol Miscellaneous Test Crossmatch See Detail 08/28/17 08/28/17 08/29/17 16:22 19:20 04:24 WBC RBC Hgb Hct MCV MCH RDW Plt Count Lymph % (Auto) [place] % (Auto) [place] # Seg Neutrophils % Seg Neuts % (Manual) Lymphocytes % (Manual) Monocytes % (Manual) Nucleated RBC % Seg Neutrophils # Seg Neutrophils # Man Lymphocytes # (Manual) Monocytes # (Manual) Eosinophils # (Manual) Basophils # (Manual) PT INR POC ABG pH 7.469 H ABG pH POC ABG pCO2 POC ABG pO2 240 H ABG pO2 ABG O2 Saturation ABG Base Excess ABG Hemoglobin Oxyhemoglobin Sodium Potassium Chloride Carbon Dioxide BUN Creatinine Glucose POC Glucose 209 H 195 H Calcium Phosphorus Magnesium Iron TIBC Ferritin Total Bilirubin AST ALT Alkaline Phosphatase Total Creatine Kinase Troponin T C-Reactive Protein Total Protein Albumin Triglycerides HDL Cholesterol Miscellaneous Test Crossmatch 08/29/17 08/29/17 08/29/17 04:30 04:30 12:07 WBC 44.9 H* RBC Hgb Hct MCV MCH RDW 23.1 H Plt Count Lymph % (Auto) [place] % (Auto) [place] # Seg Neutrophils % Seg Neuts % (Manual) 38.0 L Lymphocytes % (Manual) 10.0 L Monocytes % (Manual) 10.0 H Nucleated RBC % 6.0 H Seg Neutrophils # Seg Neutrophils # Man 17.1 H Lymphocytes # (Manual) Monocytes # (Manual) 4.5 H Eosinophils # (Manual) Basophils # (Manual) PT INR POC ABG pH ABG pH POC ABG pCO2 POC ABG pO2 ABG pO2 ABG O2 Saturation ABG Base Excess ABG Hemoglobin Oxyhemoglobin Sodium Potassium Chloride Carbon Dioxide BUN 61 H Creatinine 2.4 H Glucose 226 H POC Glucose 200 H Calcium Phosphorus Magnesium Iron TIBC Ferritin Total Bilirubin AST ALT Alkaline Phosphatase Total Creatine Kinase Troponin T C-Reactive Protein Total Protein Albumin Triglycerides HDL Cholesterol Miscellaneous Test Crossmatch 08/29/17 08/29/17 08/29/17 12:30 12:30 17:23 WBC RBC Hgb Hct MCV MCH RDW Plt Count Lymph % (Auto) [place] % (Auto) [place] # Seg Neutrophils % Seg Neuts % (Manual) Lymphocytes % (Manual) Monocytes % (Manual) Nucleated RBC % Seg Neutrophils # Seg Neutrophils # Man Lymphocytes # (Manual) Monocytes # (Manual) Eosinophils # (Manual) Basophils # (Manual) PT INR POC ABG pH ABG pH POC ABG pCO2 POC ABG pO2 ABG pO2 ABG O2 Saturation ABG Base Excess ABG Hemoglobin Oxyhemoglobin Sodium Potassium Chloride Carbon Dioxide BUN Creatinine Glucose POC Glucose 270 H Calcium Phosphorus Magnesium Iron TIBC Ferritin Total Bilirubin AST ALT Alkaline Phosphatase Total Creatine Kinase Troponin T C-Reactive Protein 19.10 H Total Protein Albumin Triglycerides HDL Cholesterol Miscellaneous Test Flexitest 1 H Crossmatch 08/30/17 08/30/17 08/30/17 00:10 01:30 03:31 WBC RBC Hgb Hct MCV MCH RDW Plt Count Lymph % (Auto) [place] % (Auto) [place] # Seg Neutrophils % Seg Neuts % (Manual) Lymphocytes % (Manual) Monocytes % (Manual) Nucleated RBC % Seg Neutrophils # Seg Neutrophils # Man Lymphocytes # (Manual) Monocytes # (Manual) Eosinophils # (Manual) Basophils # (Manual) PT INR POC ABG pH 7.168 L 7.335 L ABG pH POC ABG pCO2 72.8 H POC ABG pO2 257 H 117 H ABG pO2 ABG O2 Saturation ABG Base Excess ABG Hemoglobin Oxyhemoglobin Sodium Potassium Chloride Carbon Dioxide BUN Creatinine Glucose POC Glucose 245 H Calcium Phosphorus Magnesium Iron TIBC Ferritin Total Bilirubin AST ALT Alkaline Phosphatase Total Creatine Kinase Troponin T C-Reactive Protein Total Protein Albumin Triglycerides HDL Cholesterol Miscellaneous Test Crossmatch 08/30/17 08/30/17 08/30/17 05:20 05:20 05:20 WBC 40.9 H* RBC 3.64 L Hgb Hct MCV MCH RDW 24.3 H Plt Count Lymph % (Auto) [place] % (Auto) [place] # Seg Neutrophils % Seg Neuts % (Manual) 80.0 H Lymphocytes % (Manual) 3.0 L Monocytes % (Manual) Nucleated RBC % 1.0 H Seg Neutrophils # Seg Neutrophils # Man 32.7 H Lymphocytes # (Manual) Monocytes # (Manual) Eosinophils # (Manual) Basophils # (Manual) PT INR POC ABG pH ABG pH POC ABG pCO2 POC ABG pO2 ABG pO2 ABG O2 Saturation ABG Base Excess ABG Hemoglobin Oxyhemoglobin Sodium Potassium Chloride Carbon Dioxide BUN 83 H Creatinine 2.9 H Glucose 334 H POC Glucose 309 H Calcium Phosphorus Magnesium Iron TIBC Ferritin Total Bilirubin AST ALT Alkaline Phosphatase Total Creatine Kinase Troponin T C-Reactive Protein Total Protein Albumin Triglycerides HDL Cholesterol Miscellaneous Test Crossmatch 08/30/17 08/30/17 08/31/17 12:18 17:36 00:17 WBC RBC Hgb Hct MCV MCH RDW Plt Count Lymph % (Auto) [place] % (Auto) [place] # Seg Neutrophils % Seg Neuts % (Manual) Lymphocytes % (Manual) Monocytes % (Manual) Nucleated RBC % Seg Neutrophils # Seg Neutrophils # Man Lymphocytes # (Manual) Monocytes # (Manual) Eosinophils # (Manual) Basophils # (Manual) PT INR POC ABG pH ABG pH POC ABG pCO2 POC ABG pO2 ABG pO2 ABG O2 Saturation ABG Base Excess ABG Hemoglobin Oxyhemoglobin Sodium Potassium Chloride Carbon Dioxide BUN Creatinine Glucose POC Glucose 273 H 293 H 360 H Calcium Phosphorus Magnesium Iron TIBC Ferritin Total Bilirubin AST ALT Alkaline Phosphatase Total Creatine Kinase Troponin T C-Reactive Protein Total Protein Albumin Triglycerides HDL Cholesterol Miscellaneous Test Crossmatch 08/31/17 08/31/17 08/31/17 05:30 05:30 05:32 WBC 29.9 H RBC 2.89 L Hgb 8.2 L Hct 24.7 L D MCV MCH RDW 24.4 H Plt Count Lymph % (Auto) [place] % (Auto) [place] # Seg Neutrophils % Seg Neuts % (Manual) Lymphocytes % (Manual) 2.0 L Monocytes % (Manual) Nucleated RBC % 2.0 H Seg Neutrophils # Seg Neutrophils # Man 18.5 H Lymphocytes # (Manual) 0.6 L Monocytes # (Manual) 0.9 H Eosinophils # (Manual) Basophils # (Manual) PT INR POC ABG pH ABG pH POC ABG pCO2 POC ABG pO2 ABG pO2 ABG O2 Saturation ABG Base Excess ABG Hemoglobin Oxyhemoglobin Sodium Potassium Chloride Carbon Dioxide BUN 62 H Creatinine 2.2 H Glucose 245 H POC Glucose 257 H Calcium Phosphorus 2.10 L D Magnesium 1.60 L Iron TIBC Ferritin Total Bilirubin AST ALT Alkaline Phosphatase Total Creatine Kinase Troponin T C-Reactive Protein Total Protein Albumin Triglycerides HDL Cholesterol Miscellaneous Test Crossmatch 08/31/17 08/31/17 08/31/17 11:56 12:05 18:14 WBC 32.5 H RBC 3.19 L Hgb 8.8 L Hct 27.9 L MCV MCH RDW 24.9 H Plt Count Lymph % (Auto) [place] % (Auto) [place] # Seg Neutrophils % Seg Neuts % (Manual) Lymphocytes % (Manual) 1.0 L Monocytes % (Manual) 12.0 H Nucleated RBC % 1.0 H Seg Neutrophils # Seg Neutrophils # Man 13.3 H Lymphocytes # (Manual) 0.3 L Monocytes # (Manual) 3.9 H Eosinophils # (Manual) Basophils # (Manual) PT INR POC ABG pH ABG pH POC ABG pCO2 POC ABG pO2 ABG pO2 ABG O2 Saturation ABG Base Excess ABG Hemoglobin Oxyhemoglobin Sodium Potassium Chloride Carbon Dioxide BUN Creatinine Glucose POC Glucose 245 H Calcium Phosphorus Magnesium Iron TIBC Ferritin Total Bilirubin AST ALT Alkaline Phosphatase Total Creatine Kinase Troponin T C-Reactive Protein Total Protein Albumin Triglycerides HDL Cholesterol Miscellaneous Test Crossmatch See Detail 08/31/17 08/31/17 08/31/17 18:14 18:15 18:22 WBC RBC Hgb Hct MCV MCH RDW Plt Count Lymph % (Auto) [place] % (Auto) [place] # Seg Neutrophils % Seg Neuts % (Manual) Lymphocytes % (Manual) Monocytes % (Manual) Nucleated RBC % Seg Neutrophils # Seg Neutrophils # Man Lymphocytes # (Manual) Monocytes # (Manual) Eosinophils # (Manual) Basophils # (Manual) PT 15.1 H INR POC ABG pH ABG pH POC ABG pCO2 POC ABG pO2 ABG pO2 ABG O2 Saturation ABG Base Excess ABG Hemoglobin Oxyhemoglobin Sodium 136 L Potassium Chloride Carbon Dioxide 21 L BUN 69 H Creatinine 2.3 H Glucose 227 H POC Glucose 240 H Calcium Phosphorus 2.40 L Magnesium 1.50 L Iron TIBC Ferritin Total Bilirubin AST 143 H ALT 114 H Alkaline Phosphatase 267 H Total Creatine Kinase Troponin T C-Reactive Protein Total Protein 4.1 L Albumin 1.8 L Triglycerides HDL Cholesterol Miscellaneous Test Crossmatch 08/31/17 09/01/17 09/01/17 23:53 05:00 05:00 WBC 33.9 H RBC 2.85 L Hgb 7.8 L Hct 24.8 L MCV MCH 27 L RDW 23.9 H Plt Count Lymph % (Auto) [place] % (Auto) [place] # Seg Neutrophils % Seg Neuts % (Manual) Lymphocytes % (Manual) 5.0 L Monocytes % (Manual) Nucleated RBC % Seg Neutrophils # Seg Neutrophils # Man 23.1 H Lymphocytes # (Manual) Monocytes # (Manual) Eosinophils # (Manual) Basophils # (Manual) PT INR POC ABG pH ABG pH POC ABG pCO2 POC ABG pO2 ABG pO2 ABG O2 Saturation ABG Base Excess ABG Hemoglobin Oxyhemoglobin Sodium Potassium Chloride Carbon Dioxide BUN 51 H Creatinine 1.8 H Glucose 195 H POC Glucose 301 H Calcium Phosphorus 1.70 L D Magnesium 1.60 L Iron TIBC Ferritin Total Bilirubin AST 80 H ALT 82 H Alkaline Phosphatase 243 H Total Creatine Kinase Troponin T C-Reactive Protein Total Protein 4.2 L Albumin 1.7 L Triglycerides HDL Cholesterol Miscellaneous Test Crossmatch 09/01/17 09/01/17 09/01/17 05:20 05:47 11:37 WBC RBC Hgb Hct MCV MCH RDW Plt Count Lymph % (Auto) [place] % (Auto) [place] # Seg Neutrophils % Seg Neuts % (Manual) Lymphocytes % (Manual) Monocytes % (Manual) Nucleated RBC % Seg Neutrophils # Seg Neutrophils # Man Lymphocytes # (Manual) Monocytes # (Manual) Eosinophils # (Manual) Basophils # (Manual) PT INR POC ABG pH ABG pH 7.348 L POC ABG pCO2 POC ABG pO2 ABG pO2 70.2 L ABG O2 Saturation ABG Base Excess ABG Hemoglobin 7.5 L Oxyhemoglobin Sodium Potassium Chloride Carbon Dioxide BUN Creatinine Glucose POC Glucose 230 H 254 H Calcium Phosphorus Magnesium Iron TIBC Ferritin Total Bilirubin AST ALT Alkaline Phosphatase Total Creatine Kinase Troponin T C-Reactive Protein Total Protein Albumin Triglycerides HDL Cholesterol Miscellaneous Test Crossmatch 09/01/17 09/01/17 09/02/17 17:39 23:14 04:55 WBC RBC Hgb Hct MCV MCH RDW Plt Count Lymph % (Auto) [place] % (Auto) [place] # Seg Neutrophils % Seg Neuts % (Manual) Lymphocytes % (Manual) Monocytes % (Manual) Nucleated RBC % Seg Neutrophils # Seg Neutrophils # Man Lymphocytes # (Manual) Monocytes # (Manual) Eosinophils # (Manual) Basophils # (Manual) PT INR POC ABG pH ABG pH POC ABG pCO2 POC ABG pO2 ABG pO2 124.8 H ABG O2 Saturation ABG Base Excess -2.9 L ABG Hemoglobin 5.8 L Oxyhemoglobin Sodium Potassium Chloride Carbon Dioxide BUN Creatinine Glucose POC Glucose 297 H 291 H Calcium Phosphorus Magnesium Iron TIBC Ferritin Total Bilirubin AST ALT Alkaline Phosphatase Total Creatine Kinase Troponin T C-Reactive Protein Total Protein Albumin Triglycerides HDL Cholesterol Miscellaneous Test Crossmatch 09/02/17 09/02/17 09/02/17 05:31 06:10 11:58 WBC RBC Hgb Hct MCV MCH RDW Plt Count Lymph % (Auto) [place] % (Auto) [place] # Seg Neutrophils % Seg Neuts % (Manual) Lymphocytes % (Manual) Monocytes % (Manual) Nucleated RBC % Seg Neutrophils # Seg Neutrophils # Man Lymphocytes # (Manual) Monocytes # (Manual) Eosinophils # (Manual) Basophils # (Manual) PT INR POC ABG pH ABG pH POC ABG pCO2 POC ABG pO2 ABG pO2 ABG O2 Saturation ABG Base Excess ABG Hemoglobin Oxyhemoglobin Sodium Potassium Chloride Carbon Dioxide BUN 68 H Creatinine 2.2 H Glucose 369 H POC Glucose 245 H 333 H Calcium 8.2 L Phosphorus Magnesium Iron TIBC Ferritin Total Bilirubin AST ALT Alkaline Phosphatase Total Creatine Kinase Troponin T C-Reactive Protein Total Protein Albumin Triglycerides HDL Cholesterol Miscellaneous Test Crossmatch 09/02/17 09/02/17 09/03/17 15:37 23:50 04:00 WBC RBC Hgb Hct MCV MCH RDW Plt Count Lymph % (Auto) [place] % (Auto) [place] # Seg Neutrophils % Seg Neuts % (Manual) Lymphocytes % (Manual) Monocytes % (Manual) Nucleated RBC % Seg Neutrophils # Seg Neutrophils # Man Lymphocytes # (Manual) Monocytes # (Manual) Eosinophils # (Manual) Basophils # (Manual) PT INR POC ABG pH ABG pH POC ABG pCO2 POC ABG pO2 ABG pO2 ABG O2 Saturation ABG Base Excess ABG Hemoglobin Oxyhemoglobin Sodium Potassium Chloride Carbon Dioxide BUN 59 H Creatinine 1.9 H Glucose 231 H POC Glucose 314 H 240 H Calcium 8.0 L Phosphorus Magnesium Iron TIBC Ferritin Total Bilirubin AST ALT Alkaline Phosphatase 265 H Total Creatine Kinase Troponin T C-Reactive Protein Total Protein 4.4 L Albumin 1.7 L Triglycerides 180 H HDL Cholesterol Miscellaneous Test Crossmatch 09/03/17 09/03/17 09/03/17 05:00 05:32 11:52 WBC 41.5 H* RBC 2.46 L Hgb 6.9 L Hct 21.3 L MCV MCH RDW 24.9 H Plt Count Lymph % (Auto) [place] % (Auto) [place] # Seg Neutrophils % Seg Neuts % (Manual) Lymphocytes % (Manual) 3.0 L Monocytes % (Manual) 9.5 H Nucleated RBC % 1.5 H Seg Neutrophils # Seg Neutrophils # Man 28.8 H Lymphocytes # (Manual) Monocytes # (Manual) 3.9 H Eosinophils # (Manual) Basophils # (Manual) PT INR POC ABG pH ABG pH POC ABG pCO2 POC ABG pO2 ABG pO2 ABG O2 Saturation ABG Base Excess ABG Hemoglobin Oxyhemoglobin Sodium Potassium Chloride Carbon Dioxide BUN Creatinine Glucose POC Glucose 188 H 285 H Calcium Phosphorus Magnesium Iron TIBC Ferritin Total Bilirubin AST ALT Alkaline Phosphatase Total Creatine Kinase Troponin T C-Reactive Protein Total Protein Albumin Triglycerides HDL Cholesterol Miscellaneous Test Crossmatch 09/03/17 09/03/17 09/03/17 16:55 17:44 23:56 WBC RBC Hgb Hct MCV MCH RDW Plt Count Lymph % (Auto) [place] % (Auto) [place] # Seg Neutrophils % Seg Neuts % (Manual) Lymphocytes % (Manual) Monocytes % (Manual) Nucleated RBC % Seg Neutrophils # Seg Neutrophils # Man Lymphocytes # (Manual) Monocytes # (Manual) Eosinophils # (Manual) Basophils # (Manual) PT INR POC ABG pH ABG pH POC ABG pCO2 POC ABG pO2 ABG pO2 ABG O2 Saturation ABG Base Excess ABG Hemoglobin Oxyhemoglobin Sodium Potassium Chloride Carbon Dioxide BUN Creatinine Glucose POC Glucose 217 H 193 H Calcium Phosphorus Magnesium Iron TIBC Ferritin Total Bilirubin AST ALT Alkaline Phosphatase Total Creatine Kinase Troponin T C-Reactive Protein Total Protein Albumin Triglycerides HDL Cholesterol Miscellaneous Test Crossmatch See Detail 09/03/17 09/04/17 09/04/17 Unknown 03:47 04:32 WBC 44.7 H* RBC 3.12 L Hgb 8.7 L Hct 26.7 L MCV MCH RDW 23.5 H Plt Count Lymph % (Auto) [place] % (Auto) [place] # Seg Neutrophils % Seg Neuts % (Manual) Lymphocytes % (Manual) 4.0 L Monocytes % (Manual) Nucleated RBC % 2.0 H Seg Neutrophils # Seg Neutrophils # Man 30.8 H Lymphocytes # (Manual) Monocytes # (Manual) 2.2 H Eosinophils # (Manual) Basophils # (Manual) PT INR POC ABG pH ABG pH POC ABG pCO2 POC ABG pO2 ABG pO2 133.4 H 135.0 H ABG O2 Saturation ABG Base Excess -2.5 L ABG Hemoglobin 5.8 L 7.9 L Oxyhemoglobin Sodium Potassium Chloride Carbon Dioxide BUN Creatinine Glucose POC Glucose Calcium Phosphorus Magnesium Iron TIBC Ferritin Total Bilirubin AST ALT Alkaline Phosphatase Total Creatine Kinase Troponin T C-Reactive Protein Total Protein Albumin Triglycerides HDL Cholesterol Miscellaneous Test Crossmatch 09/04/17 09/04/17 09/04/17 04:32 05:48 10:43 WBC RBC Hgb Hct MCV MCH RDW Plt Count Lymph % (Auto) [place] % (Auto) [place] # Seg Neutrophils % Seg Neuts % (Manual) Lymphocytes % (Manual) Monocytes % (Manual) Nucleated RBC % Seg Neutrophils # Seg Neutrophils # Man Lymphocytes # (Manual) Monocytes # (Manual) Eosinophils # (Manual) Basophils # (Manual) PT INR POC ABG pH ABG pH POC ABG pCO2 POC ABG pO2 ABG pO2 ABG O2 Saturation ABG Base Excess ABG Hemoglobin Oxyhemoglobin Sodium 136 L Potassium 5.2 H D Chloride 94.2 L Carbon Dioxide BUN 71 H Creatinine 2.3 H Glucose 235 H POC Glucose 329 H Calcium 8.3 L Phosphorus Magnesium Iron TIBC Ferritin Total Bilirubin AST ALT Alkaline Phosphatase Total Creatine Kinase Troponin T C-Reactive Protein Total Protein Albumin Triglycerides HDL Cholesterol Miscellaneous Test Flexitest 1 H Crossmatch 09/04/17 09/04/17 09/05/17 12:38 17:30 00:15 WBC RBC Hgb Hct MCV MCH RDW Plt Count Lymph % (Auto) [place] % (Auto) [place] # Seg Neutrophils % Seg Neuts % (Manual) Lymphocytes % (Manual) Monocytes % (Manual) Nucleated RBC % Seg Neutrophils # Seg Neutrophils # Man Lymphocytes # (Manual) Monocytes # (Manual) Eosinophils # (Manual) Basophils # (Manual) PT INR POC ABG pH ABG pH POC ABG pCO2 POC ABG pO2 ABG pO2 ABG O2 Saturation ABG Base Excess ABG Hemoglobin Oxyhemoglobin Sodium Potassium Chloride Carbon Dioxide BUN Creatinine Glucose POC Glucose 444 H 331 H 362 H Calcium Phosphorus Magnesium Iron TIBC Ferritin Total Bilirubin AST ALT Alkaline Phosphatase Total Creatine Kinase Troponin T C-Reactive Protein Total Protein Albumin Triglycerides HDL Cholesterol Miscellaneous Test Crossmatch 09/05/17 09/05/17 09/05/17 03:55 03:55 12:12 WBC 35.3 H RBC 2.87 L Hgb 8.1 L Hct 24.6 L MCV MCH RDW 23.3 H Plt Count Lymph % (Auto) [place] % (Auto) [place] # Seg Neutrophils % Seg Neuts % (Manual) 89.5 H Lymphocytes % (Manual) 3.0 L Monocytes % (Manual) Nucleated RBC % 2.5 H Seg Neutrophils # Seg Neutrophils # Man 31.6 H Lymphocytes # (Manual) 1.1 L Monocytes # (Manual) Eosinophils # (Manual) Basophils # (Manual) PT INR POC ABG pH ABG pH POC ABG pCO2 POC ABG pO2 ABG pO2 ABG O2 Saturation ABG Base Excess ABG Hemoglobin Oxyhemoglobin Sodium 136 L Potassium Chloride 94.7 L Carbon Dioxide BUN 55 H Creatinine 1.8 H Glucose 193 H POC Glucose 344 H Calcium 8.1 L Phosphorus Magnesium Iron TIBC Ferritin Total Bilirubin AST ALT Alkaline Phosphatase Total Creatine Kinase Troponin T C-Reactive Protein Total Protein Albumin Triglycerides HDL Cholesterol Miscellaneous Test Crossmatch 09/05/17 09/05/17 09/05/17 14:32 15:32 16:41 WBC RBC Hgb Hct MCV MCH RDW Plt Count Lymph % (Auto) [place] % (Auto) [place] # Seg Neutrophils % Seg Neuts % (Manual) Lymphocytes % (Manual) Monocytes % (Manual) Nucleated RBC % Seg Neutrophils # Seg Neutrophils # Man Lymphocytes # (Manual) Monocytes # (Manual) Eosinophils # (Manual) Basophils # (Manual) PT INR POC ABG pH ABG pH POC ABG pCO2 POC ABG pO2 ABG pO2 ABG O2 Saturation ABG Base Excess ABG Hemoglobin Oxyhemoglobin Sodium Potassium Chloride Carbon Dioxide BUN Creatinine Glucose POC Glucose 265 H 145 H 188 H Calcium Phosphorus Magnesium Iron TIBC Ferritin Total Bilirubin AST ALT Alkaline Phosphatase Total Creatine Kinase Troponin T C-Reactive Protein Total Protein Albumin Triglycerides HDL Cholesterol Miscellaneous Test Crossmatch 09/05/17 09/05/17 09/05/17 17:28 18:38 20:10 WBC RBC Hgb Hct MCV MCH RDW Plt Count Lymph % (Auto) [place] % (Auto) [place] # Seg Neutrophils % Seg Neuts % (Manual) Lymphocytes % (Manual) Monocytes % (Manual) Nucleated RBC % Seg Neutrophils # Seg Neutrophils # Man Lymphocytes # (Manual) Monocytes # (Manual) Eosinophils # (Manual) Basophils # (Manual) PT INR POC ABG pH ABG pH POC ABG pCO2 POC ABG pO2 ABG pO2 ABG O2 Saturation ABG Base Excess ABG Hemoglobin Oxyhemoglobin Sodium Potassium Chloride Carbon Dioxide BUN Creatinine Glucose POC Glucose 246 H 271 H 165 H Calcium Phosphorus Magnesium Iron TIBC Ferritin Total Bilirubin AST ALT Alkaline Phosphatase Total Creatine Kinase Troponin T C-Reactive Protein Total Protein Albumin Triglycerides HDL Cholesterol Miscellaneous Test Crossmatch 09/05/17 09/05/17 09/06/17 21:06 23:07 00:10 WBC RBC Hgb Hct MCV MCH RDW Plt Count Lymph % (Auto) [place] % (Auto) [place] # Seg Neutrophils % Seg Neuts % (Manual) Lymphocytes % (Manual) Monocytes % (Manual) Nucleated RBC % Seg Neutrophils # Seg Neutrophils # Man Lymphocytes # (Manual) Monocytes # (Manual) Eosinophils # (Manual) Basophils # (Manual) PT INR POC ABG pH ABG pH POC ABG pCO2 POC ABG pO2 ABG pO2 ABG O2 Saturation ABG Base Excess ABG Hemoglobin Oxyhemoglobin Sodium Potassium Chloride Carbon Dioxide BUN Creatinine Glucose POC Glucose 134 H 135 H 147 H Calcium Phosphorus Magnesium Iron TIBC Ferritin Total Bilirubin AST ALT Alkaline Phosphatase Total Creatine Kinase Troponin T C-Reactive Protein Total Protein Albumin Triglycerides HDL Cholesterol Miscellaneous Test Crossmatch 09/06/17 09/06/17 09/06/17 01:08 02:01 03:08 WBC RBC Hgb Hct MCV MCH RDW Plt Count Lymph % (Auto) [place] % (Auto) [place] # Seg Neutrophils % Seg Neuts % (Manual) Lymphocytes % (Manual) Monocytes % (Manual) Nucleated RBC % Seg Neutrophils # Seg Neutrophils # Man Lymphocytes # (Manual) Monocytes # (Manual) Eosinophils # (Manual) Basophils # (Manual) PT INR POC ABG pH ABG pH POC ABG pCO2 POC ABG pO2 ABG pO2 ABG O2 Saturation ABG Base Excess ABG Hemoglobin Oxyhemoglobin Sodium Potassium Chloride Carbon Dioxide BUN Creatinine Glucose POC Glucose 133 H 146 H 135 H Calcium Phosphorus Magnesium Iron TIBC Ferritin Total Bilirubin AST ALT Alkaline Phosphatase Total Creatine Kinase Troponin T C-Reactive Protein Total Protein Albumin Triglycerides HDL Cholesterol Miscellaneous Test Crossmatch 09/06/17 09/06/17 09/06/17 05:30 05:30 05:30 WBC 38.6 H RBC 2.95 L Hgb 8.3 L Hct 25.3 L MCV MCH RDW 22.2 H Plt Count Lymph % (Auto) [place] % (Auto) [place] # Seg Neutrophils % Seg Neuts % (Manual) Lymphocytes % (Manual) 2.0 L Monocytes % (Manual) Nucleated RBC % 5.0 H Seg Neutrophils # Seg Neutrophils # Man 25.9 H Lymphocytes # (Manual) 0.8 L Monocytes # (Manual) 1.9 H Eosinophils # (Manual) Basophils # (Manual) PT INR POC ABG pH ABG pH POC ABG pCO2 POC ABG pO2 ABG pO2 ABG O2 Saturation ABG Base Excess ABG Hemoglobin Oxyhemoglobin Sodium 135 L Potassium Chloride 93.5 L Carbon Dioxide BUN 82 H Creatinine 2.3 H Glucose 148 H POC Glucose Calcium Phosphorus Magnesium Iron TIBC Ferritin Total Bilirubin AST ALT Alkaline Phosphatase Total Creatine Kinase Troponin T C-Reactive Protein 2.80 H Total Protein Albumin Triglycerides HDL Cholesterol Miscellaneous Test Crossmatch 09/06/17 09/06/17 09/06/17 05:48 08:04 09:06 WBC RBC Hgb Hct MCV MCH RDW Plt Count Lymph % (Auto) [place] % (Auto) [place] # Seg Neutrophils % Seg Neuts % (Manual) Lymphocytes % (Manual) Monocytes % (Manual) Nucleated RBC % Seg Neutrophils # Seg Neutrophils # Man Lymphocytes # (Manual) Monocytes # (Manual) Eosinophils # (Manual) Basophils # (Manual) PT INR POC ABG pH ABG pH POC ABG pCO2 POC ABG pO2 ABG pO2 ABG O2 Saturation ABG Base Excess ABG Hemoglobin Oxyhemoglobin Sodium Potassium Chloride Carbon Dioxide BUN Creatinine Glucose POC Glucose 152 H 164 H 172 H Calcium Phosphorus Magnesium Iron TIBC Ferritin Total Bilirubin AST ALT Alkaline Phosphatase Total Creatine Kinase Troponin T C-Reactive Protein Total Protein Albumin Triglycerides HDL Cholesterol Miscellaneous Test Crossmatch 09/06/17 09/06/17 09/06/17 09:57 10:19 10:57 WBC RBC Hgb Hct MCV MCH RDW Plt Count Lymph % (Auto) [place] % (Auto) [place] # Seg Neutrophils % Seg Neuts % (Manual) Lymphocytes % (Manual) Monocytes % (Manual) Nucleated RBC % Seg Neutrophils # Seg Neutrophils # Man Lymphocytes # (Manual) Monocytes # (Manual) Eosinophils # (Manual) Basophils # (Manual) PT INR POC ABG pH ABG pH POC ABG pCO2 POC ABG pO2 ABG pO2 ABG O2 Saturation ABG Base Excess ABG Hemoglobin Oxyhemoglobin Sodium Potassium Chloride Carbon Dioxide BUN Creatinine Glucose POC Glucose 186 H 162 H Calcium Phosphorus Magnesium Iron TIBC Ferritin Total Bilirubin AST ALT Alkaline Phosphatase Total Creatine Kinase Troponin T C-Reactive Protein Total Protein Albumin Triglycerides HDL Cholesterol Miscellaneous Test Flexitest 1 H Crossmatch 09/06/17 09/06/17 09/06/17 13:12 13:40 17:36 WBC RBC Hgb 8.9 L Hct 28.5 L MCV MCH RDW Plt Count Lymph % (Auto) [place] % (Auto) [place] # Seg Neutrophils % Seg Neuts % (Manual) Lymphocytes % (Manual) Monocytes % (Manual) Nucleated RBC % Seg Neutrophils # Seg Neutrophils # Man Lymphocytes # (Manual) Monocytes # (Manual) Eosinophils # (Manual) Basophils # (Manual) PT INR POC ABG pH ABG pH POC ABG pCO2 POC ABG pO2 ABG pO2 ABG O2 Saturation ABG Base Excess ABG Hemoglobin Oxyhemoglobin Sodium Potassium Chloride Carbon Dioxide BUN Creatinine Glucose POC Glucose 166 H 161 H Calcium Phosphorus Magnesium Iron TIBC Ferritin Total Bilirubin AST ALT Alkaline Phosphatase Total Creatine Kinase Troponin T C-Reactive Protein Total Protein Albumin Triglycerides HDL Cholesterol Miscellaneous Test Crossmatch 09/07/17 09/07/17 09/07/17 00:13 03:50 03:50 WBC 47.0 H* RBC 2.81 L Hgb 8.1 L Hct 24.1 L MCV MCH RDW 22.5 H Plt Count Lymph % (Auto) [place] % (Auto) [place] # Seg Neutrophils % Seg Neuts % (Manual) Lymphocytes % (Manual) 9.0 L Monocytes % (Manual) Nucleated RBC % 6.0 H Seg Neutrophils # Seg Neutrophils # Man 27.3 H Lymphocytes # (Manual) Monocytes # (Manual) 0.9 H Eosinophils # (Manual) 1.9 H Basophils # (Manual) PT INR POC ABG pH ABG pH POC ABG pCO2 POC ABG pO2 ABG pO2 ABG O2 Saturation ABG Base Excess ABG Hemoglobin Oxyhemoglobin Sodium 136 L Potassium Chloride 96.3 L Carbon Dioxide BUN 61 H Creatinine 1.7 H Glucose 132 H POC Glucose 183 H Calcium 7.8 L Phosphorus Magnesium Iron TIBC Ferritin Total Bilirubin AST ALT Alkaline Phosphatase Total Creatine Kinase Troponin T C-Reactive Protein Total Protein Albumin Triglycerides HDL Cholesterol Miscellaneous Test Crossmatch 09/07/17 09/07/17 09/07/17 05:12 05:23 11:48 WBC RBC Hgb Hct MCV MCH RDW Plt Count Lymph % (Auto) [place] % (Auto) [place] # Seg Neutrophils % Seg Neuts % (Manual) Lymphocytes % (Manual) Monocytes % (Manual) Nucleated RBC % Seg Neutrophils # Seg Neutrophils # Man Lymphocytes # (Manual) Monocytes # (Manual) Eosinophils # (Manual) Basophils # (Manual) PT INR POC ABG pH ABG pH POC ABG pCO2 POC ABG pO2 ABG pO2 ABG O2 Saturation ABG Base Excess ABG Hemoglobin 7.7 L Oxyhemoglobin 94.8 L Sodium Potassium Chloride Carbon Dioxide BUN Creatinine Glucose POC Glucose 162 H 200 H Calcium Phosphorus Magnesium Iron TIBC Ferritin Total Bilirubin AST ALT Alkaline Phosphatase Total Creatine Kinase Troponin T C-Reactive Protein Total Protein Albumin Triglycerides HDL Cholesterol Miscellaneous Test Crossmatch 09/07/17 09/07/17 09/08/17 17:07 18:21 00:06 WBC RBC Hgb Hct MCV MCH RDW Plt Count Lymph % (Auto) [place] % (Auto) [place] # Seg Neutrophils % Seg Neuts % (Manual) Lymphocytes % (Manual) Monocytes % (Manual) Nucleated RBC % Seg Neutrophils # Seg Neutrophils # Man Lymphocytes # (Manual) Monocytes # (Manual) Eosinophils # (Manual) Basophils # (Manual) PT INR POC ABG pH ABG pH POC ABG pCO2 POC ABG pO2 ABG pO2 ABG O2 Saturation ABG Base Excess ABG Hemoglobin Oxyhemoglobin Sodium Potassium Chloride Carbon Dioxide BUN Creatinine Glucose POC Glucose 181 H 168 H Calcium Phosphorus Magnesium Iron TIBC Ferritin Total Bilirubin AST ALT Alkaline Phosphatase Total Creatine Kinase Troponin T C-Reactive Protein Total Protein Albumin Triglycerides HDL Cholesterol Miscellaneous Test Crossmatch See Detail 09/08/17 09/08/17 09/08/17 04:05 04:05 04:41 WBC 49.7 H* RBC 2.58 L Hgb 7.3 L Hct 22.7 L MCV MCH RDW 22.5 H Plt Count Lymph % (Auto) [place] % (Auto) [place] # Seg Neutrophils % Seg Neuts % (Manual) 90.5 H Lymphocytes % (Manual) 1.5 L Monocytes % (Manual) Nucleated RBC % Seg Neutrophils # Seg Neutrophils # Man 45.0 H Lymphocytes # (Manual) 0.7 L Monocytes # (Manual) 1.7 H Eosinophils # (Manual) Basophils # (Manual) PT INR POC ABG pH ABG pH POC ABG pCO2 POC ABG pO2 ABG pO2 ABG O2 Saturation ABG Base Excess ABG Hemoglobin Oxyhemoglobin Sodium 132 L Potassium Chloride 92.1 L Carbon Dioxide BUN 82 H Creatinine 2.2 H Glucose 162 H POC Glucose 235 H Calcium 8.3 L Phosphorus 5.20 H D Magnesium Iron TIBC Ferritin Total Bilirubin AST ALT Alkaline Phosphatase 199 H Total Creatine Kinase Troponin T C-Reactive Protein Total Protein 4.5 L Albumin 1.7 L Triglycerides HDL Cholesterol Miscellaneous Test Crossmatch 09/08/17 09/08/17 09/08/17 09:21 11:52 17:38 WBC RBC Hgb Hct MCV MCH RDW Plt Count Lymph % (Auto) [place] % (Auto) [place] # Seg Neutrophils % Seg Neuts % (Manual) Lymphocytes % (Manual) Monocytes % (Manual) Nucleated RBC % Seg Neutrophils # Seg Neutrophils # Man Lymphocytes # (Manual) Monocytes # (Manual) Eosinophils # (Manual) Basophils # (Manual) PT INR POC ABG pH ABG pH POC ABG pCO2 POC ABG pO2 ABG pO2 218.5 H ABG O2 Saturation 99.3 H ABG Base Excess -3.5 L ABG Hemoglobin 7.7 L Oxyhemoglobin Sodium Potassium Chloride Carbon Dioxide BUN Creatinine Glucose POC Glucose 220 H 194 H Calcium Phosphorus Magnesium Iron TIBC Ferritin Total Bilirubin AST ALT Alkaline Phosphatase Total Creatine Kinase Troponin T C-Reactive Protein Total Protein Albumin Triglycerides HDL Cholesterol Miscellaneous Test Crossmatch 09/09/17 09/09/17 09/09/17 00:24 03:37 03:37 WBC 33.5 H RBC 2.36 L Hgb 6.7 L Hct 20.9 L MCV MCH RDW 22.7 H Plt Count Lymph % (Auto) [place] % (Auto) [place] # Seg Neutrophils % Seg Neuts % (Manual) Lymphocytes % (Manual) Monocytes % (Manual) Nucleated RBC % Seg Neutrophils # Seg Neutrophils # Man Lymphocytes # (Manual) Monocytes # (Manual) Eosinophils # (Manual) Basophils # (Manual) PT INR POC ABG pH ABG pH POC ABG pCO2 POC ABG pO2 ABG pO2 ABG O2 Saturation ABG Base Excess ABG Hemoglobin Oxyhemoglobin Sodium 132 L Potassium Chloride 91.6 L Carbon Dioxide 21 L BUN 101 H Creatinine 2.6 H Glucose 156 H POC Glucose 182 H Calcium 8.3 L Phosphorus 5.90 H Magnesium 2.60 H Iron TIBC Ferritin Total Bilirubin AST ALT Alkaline Phosphatase Total Creatine Kinase Troponin T C-Reactive Protein Total Protein Albumin Triglycerides HDL Cholesterol Miscellaneous Test Crossmatch 09/09/17 09/09/17 09/09/17 05:29 12:03 18:05 WBC RBC Hgb Hct MCV MCH RDW Plt Count Lymph % (Auto) [place] % (Auto) [place] # Seg Neutrophils % Seg Neuts % (Manual) Lymphocytes % (Manual) Monocytes % (Manual) Nucleated RBC % Seg Neutrophils # Seg Neutrophils # Man Lymphocytes # (Manual) Monocytes # (Manual) Eosinophils # (Manual) Basophils # (Manual) PT INR POC ABG pH ABG pH POC ABG pCO2 POC ABG pO2 ABG pO2 ABG O2 Saturation ABG Base Excess ABG Hemoglobin Oxyhemoglobin Sodium Potassium Chloride Carbon Dioxide BUN Creatinine Glucose POC Glucose 168 H 143 H 173 H Calcium Phosphorus Magnesium Iron TIBC Ferritin Total Bilirubin AST ALT Alkaline Phosphatase Total Creatine Kinase Troponin T C-Reactive Protein Total Protein Albumin Triglycerides HDL Cholesterol Miscellaneous Test Crossmatch 09/09/17 09/09/17 09/10/17 23:30 Unknown 05:04 WBC RBC Hgb Hct MCV MCH RDW Plt Count Lymph % (Auto) [place] % (Auto) [place] # Seg Neutrophils % Seg Neuts % (Manual) Lymphocytes % (Manual) Monocytes % (Manual) Nucleated RBC % Seg Neutrophils # Seg Neutrophils # Man Lymphocytes # (Manual) Monocytes # (Manual) Eosinophils # (Manual) Basophils # (Manual) PT INR POC ABG pH ABG pH 7.323 L POC ABG pCO2 POC ABG pO2 ABG pO2 94.1 H ABG O2 Saturation ABG Base Excess -4.8 L ABG Hemoglobin 8.0 L Oxyhemoglobin 94.9 L Sodium Potassium Chloride Carbon Dioxide BUN Creatinine Glucose POC Glucose 212 H 155 H Calcium Phosphorus Magnesium Iron TIBC Ferritin Total Bilirubin AST ALT Alkaline Phosphatase Total Creatine Kinase Troponin T C-Reactive Protein Total Protein Albumin Triglycerides HDL Cholesterol Miscellaneous Test Crossmatch 09/10/17 09/10/17 09/10/17 07:00 09:55 12:22 WBC 24.7 H RBC 2.62 L Hgb 7.5 L Hct 22.5 L MCV MCH RDW 20.8 H Plt Count Lymph % (Auto) [place] % (Auto) [place] # Seg Neutrophils % Seg Neuts % (Manual) Lymphocytes % (Manual) Monocytes % (Manual) Nucleated RBC % Seg Neutrophils # Seg Neutrophils # Man Lymphocytes # (Manual) Monocytes # (Manual) Eosinophils # (Manual) Basophils # (Manual) PT INR POC ABG pH ABG pH POC ABG pCO2 POC ABG pO2 ABG pO2 ABG O2 Saturation ABG Base Excess ABG Hemoglobin Oxyhemoglobin Sodium Potassium Chloride 97.9 L Carbon Dioxide BUN 78 H Creatinine 2.0 H Glucose 126 H POC Glucose 183 H Calcium 8.2 L Phosphorus Magnesium Iron TIBC Ferritin Total Bilirubin AST ALT Alkaline Phosphatase Total Creatine Kinase Troponin T C-Reactive Protein Total Protein Albumin Triglycerides HDL Cholesterol Miscellaneous Test Crossmatch 09/11/17 09/11/17 09/11/17 00:08 03:50 05:28 WBC 21.6 H RBC 2.52 L Hgb 7.4 L Hct 22.2 L MCV MCH RDW 21.5 H Plt Count Lymph % (Auto) [place] % (Auto) [place] # Seg Neutrophils % Seg Neuts % (Manual) 92.0 H Lymphocytes % (Manual) 3.0 L Monocytes % (Manual) Nucleated RBC % Seg Neutrophils # Seg Neutrophils # Man 19.9 H Lymphocytes # (Manual) 0.6 L Monocytes # (Manual) Eosinophils # (Manual) Basophils # (Manual) PT INR POC ABG pH ABG pH POC ABG pCO2 POC ABG pO2 ABG pO2 ABG O2 Saturation ABG Base Excess ABG Hemoglobin Oxyhemoglobin Sodium Potassium Chloride Carbon Dioxide BUN Creatinine Glucose POC Glucose 213 H 181 H Calcium Phosphorus Magnesium Iron TIBC Ferritin Total Bilirubin AST ALT Alkaline Phosphatase Total Creatine Kinase Troponin T C-Reactive Protein Total Protein Albumin Triglycerides HDL Cholesterol Miscellaneous Test Crossmatch 09/11/17 09/11/17 09/11/17 11:55 17:56 23:12 WBC RBC Hgb Hct MCV MCH RDW Plt Count Lymph % (Auto) [place] % (Auto) [place] # Seg Neutrophils % Seg Neuts % (Manual) Lymphocytes % (Manual) Monocytes % (Manual) Nucleated RBC % Seg Neutrophils # Seg Neutrophils # Man Lymphocytes # (Manual) Monocytes # (Manual) Eosinophils # (Manual) Basophils # (Manual) PT INR POC ABG pH ABG pH POC ABG pCO2 POC ABG pO2 ABG pO2 ABG O2 Saturation ABG Base Excess ABG Hemoglobin Oxyhemoglobin Sodium Potassium Chloride Carbon Dioxide 21 L BUN 80 H Creatinine 2.1 H Glucose 170 H POC Glucose 277 H 206 H Calcium 8.0 L Phosphorus Magnesium Iron TIBC Ferritin Total Bilirubin AST ALT Alkaline Phosphatase Total Creatine Kinase Troponin T C-Reactive Protein Total Protein Albumin Triglycerides HDL Cholesterol Miscellaneous Test Crossmatch 09/11/17 09/12/17 09/12/17 23:36 05:25 05:25 WBC 17.4 H RBC 2.29 L Hgb 6.7 L Hct 20.4 L MCV MCH RDW 21.2 H Plt Count Lymph % (Auto) [place] % (Auto) [place] # Seg Neutrophils % Seg Neuts % (Manual) 79.0 H Lymphocytes % (Manual) 5.0 L Monocytes % (Manual) Nucleated RBC % 1.0 H Seg Neutrophils # Seg Neutrophils # Man 13.7 H Lymphocytes # (Manual) 0.9 L Monocytes # (Manual) 1.2 H Eosinophils # (Manual) Basophils # (Manual) PT INR POC ABG pH ABG pH POC ABG pCO2 POC ABG pO2 ABG pO2 ABG O2 Saturation ABG Base Excess ABG Hemoglobin Oxyhemoglobin Sodium Potassium Chloride Carbon Dioxide BUN Creatinine Glucose POC Glucose 190 H Calcium Phosphorus Magnesium Iron 22 L TIBC 81 L Ferritin Total Bilirubin AST ALT Alkaline Phosphatase Total Creatine Kinase Troponin T C-Reactive Protein Total Protein Albumin Triglycerides HDL Cholesterol Miscellaneous Test Crossmatch 09/12/17 09/12/17 09/12/17 05:25 05:36 09:14 WBC RBC Hgb Hct MCV MCH RDW Plt Count Lymph % (Auto) [place] % (Auto) [place] # Seg Neutrophils % Seg Neuts % (Manual) Lymphocytes % (Manual) Monocytes % (Manual) Nucleated RBC % Seg Neutrophils # Seg Neutrophils # Man Lymphocytes # (Manual) Monocytes # (Manual) Eosinophils # (Manual) Basophils # (Manual) PT INR POC ABG pH ABG pH POC ABG pCO2 POC ABG pO2 ABG pO2 ABG O2 Saturation ABG Base Excess ABG Hemoglobin Oxyhemoglobin Sodium Potassium Chloride Carbon Dioxide BUN Creatinine Glucose POC Glucose 141 H Calcium Phosphorus Magnesium Iron TIBC Ferritin > 2000.0 H Total Bilirubin AST ALT Alkaline Phosphatase Total Creatine Kinase Troponin T C-Reactive Protein Total Protein Albumin Triglycerides HDL Cholesterol Miscellaneous Test Crossmatch See Detail 09/12/17 09/12/17 09/12/17 11:18 15:22 17:18 WBC RBC Hgb 8.5 L Hct 25.4 L MCV MCH RDW Plt Count Lymph % (Auto) [place] % (Auto) [place] # Seg Neutrophils % Seg Neuts % (Manual) Lymphocytes % (Manual) Monocytes % (Manual) Nucleated RBC % Seg Neutrophils # Seg Neutrophils # Man Lymphocytes # (Manual) Monocytes # (Manual) Eosinophils # (Manual) Basophils # (Manual) PT INR POC ABG pH ABG pH POC ABG pCO2 POC ABG pO2 ABG pO2 ABG O2 Saturation ABG Base Excess ABG Hemoglobin Oxyhemoglobin Sodium Potassium Chloride Carbon Dioxide BUN Creatinine Glucose POC Glucose 262 H 193 H Calcium Phosphorus Magnesium Iron TIBC Ferritin Total Bilirubin AST ALT Alkaline Phosphatase Total Creatine Kinase Troponin T C-Reactive Protein Total Protein Albumin Triglycerides HDL Cholesterol Miscellaneous Test Crossmatch 09/13/17 09/13/17 09/13/17 00:05 06:25 11:36 WBC RBC Hgb Hct MCV MCH RDW Plt Count Lymph % (Auto) [place] % (Auto) [place] # Seg Neutrophils % Seg Neuts % (Manual) Lymphocytes % (Manual) Monocytes % (Manual) Nucleated RBC % Seg Neutrophils # Seg Neutrophils # Man Lymphocytes # (Manual) Monocytes # (Manual) Eosinophils # (Manual) Basophils # (Manual) PT INR POC ABG pH 7.347 L ABG pH POC ABG pCO2 34.3 L POC ABG pO2 134 H ABG pO2 ABG O2 Saturation ABG Base Excess ABG Hemoglobin Oxyhemoglobin Sodium Potassium Chloride Carbon Dioxide BUN Creatinine Glucose POC Glucose 235 H 286 H Calcium Phosphorus Magnesium Iron TIBC Ferritin Total Bilirubin AST ALT Alkaline Phosphatase Total Creatine Kinase Troponin T C-Reactive Protein Total Protein Albumin Triglycerides HDL Cholesterol Miscellaneous Test Crossmatch 09/13/17 09/13/17 09/13/17 11:56 17:25 23:18 WBC RBC Hgb Hct MCV MCH RDW Plt Count Lymph % (Auto) [place] % (Auto) [place] # Seg Neutrophils % Seg Neuts % (Manual) Lymphocytes % (Manual) Monocytes % (Manual) Nucleated RBC % Seg Neutrophils # Seg Neutrophils # Man Lymphocytes # (Manual) Monocytes # (Manual) Eosinophils # (Manual) Basophils # (Manual) PT INR POC ABG pH ABG pH POC ABG pCO2 POC ABG pO2 ABG pO2 ABG O2 Saturation ABG Base Excess ABG Hemoglobin Oxyhemoglobin Sodium Potassium Chloride Carbon Dioxide BUN Creatinine Glucose POC Glucose 318 H 278 H 230 H Calcium Phosphorus Magnesium Iron TIBC Ferritin Total Bilirubin AST ALT Alkaline Phosphatase Total Creatine Kinase Troponin T C-Reactive Protein Total Protein Albumin Triglycerides HDL Cholesterol Miscellaneous Test Crossmatch 09/13/17 09/13/17 09/13/17 Unknown Unknown Unknown WBC 15.6 H RBC 2.72 L Hgb 8.1 L Hct 23.9 L MCV MCH RDW 19.5 H Plt Count 137 L Lymph % (Auto) [place] % (Auto) [place] # Seg Neutrophils % Seg Neuts % (Manual) 73.0 H Lymphocytes % (Manual) 3.0 L Monocytes % (Manual) 19.0 H Nucleated RBC % 2.0 H Seg Neutrophils # Seg Neutrophils # Man 11.4 H Lymphocytes # (Manual) 0.5 L Monocytes # (Manual) 3.0 H Eosinophils # (Manual) Basophils # (Manual) PT INR POC ABG pH ABG pH POC ABG pCO2 POC ABG pO2 ABG pO2 ABG O2 Saturation ABG Base Excess ABG Hemoglobin Oxyhemoglobin Sodium Potassium Chloride Carbon Dioxide 19 L BUN 103 H Creatinine 2.6 H Glucose 173 H POC Glucose Calcium Phosphorus Magnesium Iron TIBC Ferritin Total Bilirubin AST ALT Alkaline Phosphatase Total Creatine Kinase Troponin T C-Reactive Protein Total Protein Albumin < 0.2 L Triglycerides HDL Cholesterol Miscellaneous Test Crossmatch 09/14/17 09/14/17 09/14/17 03:15 03:15 05:16 WBC 12.5 H RBC 2.55 L Hgb 7.6 L Hct 22.5 L MCV MCH RDW 19.8 H Plt Count 139 L Lymph % (Auto) [place] % (Auto) [place] # Seg Neutrophils % Seg Neuts % (Manual) Lymphocytes % (Manual) Monocytes % (Manual) Nucleated RBC % Seg Neutrophils # Seg Neutrophils # Man Lymphocytes # (Manual) Monocytes # (Manual) Eosinophils # (Manual) Basophils # (Manual) PT INR POC ABG pH ABG pH POC ABG pCO2 POC ABG pO2 ABG pO2 ABG O2 Saturation ABG Base Excess ABG Hemoglobin Oxyhemoglobin Sodium Potassium Chloride Carbon Dioxide BUN 75 H Creatinine 2.1 H Glucose 217 H POC Glucose 283 H Calcium Phosphorus 2.20 L D Magnesium Iron TIBC Ferritin Total Bilirubin AST ALT Alkaline Phosphatase Total Creatine Kinase Troponin T C-Reactive Protein Total Protein Albumin Triglycerides HDL Cholesterol Miscellaneous Test Crossmatch 09/14/17 09/14/17 09/15/17 12:11 17:47 00:03 WBC RBC Hgb Hct MCV MCH RDW Plt Count Lymph % (Auto) [place] % (Auto) [place] # Seg Neutrophils % Seg Neuts % (Manual) Lymphocytes % (Manual) Monocytes % (Manual) Nucleated RBC % Seg Neutrophils # Seg Neutrophils # Man Lymphocytes # (Manual) Monocytes # (Manual) Eosinophils # (Manual) Basophils # (Manual) PT INR POC ABG pH ABG pH POC ABG pCO2 POC ABG pO2 ABG pO2 ABG O2 Saturation ABG Base Excess ABG Hemoglobin Oxyhemoglobin Sodium Potassium Chloride Carbon Dioxide BUN Creatinine Glucose POC Glucose 251 H 289 H 229 H Calcium Phosphorus Magnesium Iron TIBC Ferritin Total Bilirubin AST ALT Alkaline Phosphatase Total Creatine Kinase Troponin T C-Reactive Protein Total Protein Albumin Triglycerides HDL Cholesterol Miscellaneous Test Crossmatch 09/15/17 09/15/17 09/15/17 05:00 05:00 05:30 WBC 11.7 H RBC 2.50 L Hgb 7.4 L Hct 22.7 L MCV MCH RDW 20.5 H Plt Count Lymph % (Auto) [place] % (Auto) [place] # Seg Neutrophils % Seg Neuts % (Manual) Lymphocytes % (Manual) 11.0 L Monocytes % (Manual) 11.0 H Nucleated RBC % Seg Neutrophils # Seg Neutrophils # Man Lymphocytes # (Manual) Monocytes # (Manual) 1.3 H Eosinophils # (Manual) Basophils # (Manual) PT INR POC ABG pH ABG pH POC ABG pCO2 POC ABG pO2 ABG pO2 ABG O2 Saturation ABG Base Excess ABG Hemoglobin Oxyhemoglobin Sodium Potassium Chloride 97.0 L Carbon Dioxide 21 L BUN 94 H Creatinine 2.4 H Glucose 194 H POC Glucose 225 H Calcium Phosphorus Magnesium Iron TIBC Ferritin Total Bilirubin AST ALT Alkaline Phosphatase Total Creatine Kinase Troponin T C-Reactive Protein Total Protein Albumin Triglycerides HDL Cholesterol Miscellaneous Test Crossmatch 09/15/17 09/15/17 09/15/17 07:48 11:38 12:45 WBC RBC 1.93 L Hgb 5.7 L* Hct 17.1 L* MCV MCH RDW 20.2 H Plt Count 125 L Lymph % (Auto) [place] % (Auto) [place] # Seg Neutrophils % Seg Neuts % (Manual) 79.0 H Lymphocytes % (Manual) 8.0 L Monocytes % (Manual) Nucleated RBC % Seg Neutrophils # Seg Neutrophils # Man Lymphocytes # (Manual) 0.8 L Monocytes # (Manual) Eosinophils # (Manual) Basophils # (Manual) PT INR POC ABG pH ABG pH POC ABG pCO2 POC ABG pO2 ABG pO2 ABG O2 Saturation ABG Base Excess ABG Hemoglobin Oxyhemoglobin Sodium Potassium Chloride Carbon Dioxide BUN Creatinine Glucose POC Glucose 245 H 253 H Calcium Phosphorus Magnesium Iron TIBC Ferritin Total Bilirubin AST ALT Alkaline Phosphatase Total Creatine Kinase Troponin T C-Reactive Protein Total Protein Albumin Triglycerides HDL Cholesterol Miscellaneous Test Crossmatch 09/15/17 09/15/17 09/15/17 12:45 12:45 22:25 WBC 19.6 H RBC 3.32 L Hgb 10.0 L D Hct 29.3 L D MCV MCH RDW 17.0 H Plt Count 123 L Lymph % (Auto) [place] % (Auto) [place] # Seg Neutrophils % Seg Neuts % (Manual) Lymphocytes % (Manual) 12.0 L Monocytes % (Manual) Nucleated RBC % 5.0 H Seg Neutrophils # Seg Neutrophils # Man 11.0 H Lymphocytes # (Manual) Monocytes # (Manual) 1.2 H Eosinophils # (Manual) Basophils # (Manual) PT 15.4 H INR 1.16 H POC ABG pH ABG pH POC ABG pCO2 POC ABG pO2 ABG pO2 ABG O2 Saturation ABG Base Excess ABG Hemoglobin Oxyhemoglobin Sodium Potassium Chloride Carbon Dioxide BUN Creatinine Glucose POC Glucose Calcium Phosphorus Magnesium Iron TIBC Ferritin Total Bilirubin AST ALT Alkaline Phosphatase Total Creatine Kinase Troponin T C-Reactive Protein Total Protein Albumin Triglycerides HDL Cholesterol Miscellaneous Test Crossmatch See Detail 09/15/17 09/15/17 09/16/17 22:25 23:38 01:26 WBC RBC Hgb Hct MCV MCH RDW Plt Count Lymph % (Auto) [place] % (Auto) [place] # Seg Neutrophils % Seg Neuts % (Manual) Lymphocytes % (Manual) Monocytes % (Manual) Nucleated RBC % Seg Neutrophils # Seg Neutrophils # Man Lymphocytes # (Manual) Monocytes # (Manual) Eosinophils # (Manual) Basophils # (Manual) PT INR POC ABG pH ABG pH POC ABG pCO2 POC ABG pO2 ABG pO2 ABG O2 Saturation ABG Base Excess ABG Hemoglobin Oxyhemoglobin Sodium Potassium Chloride Carbon Dioxide 17 L BUN 100 H Creatinine 2.6 H Glucose POC Glucose 58 L 132 H Calcium 8.3 L Phosphorus Magnesium 1.60 L Iron TIBC Ferritin Total Bilirubin 2.80 H AST 118 H ALT Alkaline Phosphatase 316 H Total Creatine Kinase Troponin T C-Reactive Protein Total Protein 4.0 L Albumin 1.8 L Triglycerides HDL Cholesterol Miscellaneous Test Crossmatch 09/16/17 09/16/17 09/16/17 05:30 05:30 05:54 WBC 24.6 H RBC 3.22 L Hgb 9.8 L Hct 28.6 L MCV MCH RDW 17.4 H Plt Count 127 L Lymph % (Auto) [place] % (Auto) [place] # Seg Neutrophils % Seg Neuts % (Manual) Lymphocytes % (Manual) Monocytes % (Manual) Nucleated RBC % Seg Neutrophils # Seg Neutrophils # Man Lymphocytes # (Manual) Monocytes # (Manual) Eosinophils # (Manual) Basophils # (Manual) PT INR POC ABG pH ABG pH POC ABG pCO2 POC ABG pO2 ABG pO2 ABG O2 Saturation ABG Base Excess ABG Hemoglobin Oxyhemoglobin Sodium Potassium Chloride Carbon Dioxide 18 L BUN 109 H Creatinine 2.5 H Glucose 140 H POC Glucose 154 H Calcium Phosphorus 4.80 H Magnesium Iron TIBC Ferritin Total Bilirubin 2.40 H AST 90 H ALT Alkaline Phosphatase 298 H Total Creatine Kinase 20 L Troponin T C-Reactive Protein Total Protein 4.1 L Albumin 1.8 L Triglycerides HDL Cholesterol Miscellaneous Test Crossmatch 09/16/17 09/16/17 09/16/17 11:49 17:04 23:18 WBC RBC Hgb Hct MCV MCH RDW Plt Count Lymph % (Auto) [place] % (Auto) [place] # Seg Neutrophils % Seg Neuts % (Manual) Lymphocytes % (Manual) Monocytes % (Manual) Nucleated RBC % Seg Neutrophils # Seg Neutrophils # Man Lymphocytes # (Manual) Monocytes # (Manual) Eosinophils # (Manual) Basophils # (Manual) PT INR POC ABG pH ABG pH POC ABG pCO2 POC ABG pO2 ABG pO2 ABG O2 Saturation ABG Base Excess ABG Hemoglobin Oxyhemoglobin Sodium Potassium Chloride Carbon Dioxide BUN Creatinine Glucose POC Glucose 167 H 156 H 162 H Calcium Phosphorus Magnesium Iron TIBC Ferritin Total Bilirubin AST ALT Alkaline Phosphatase Total Creatine Kinase Troponin T C-Reactive Protein Total Protein Albumin Triglycerides HDL Cholesterol Miscellaneous Test Crossmatch 09/17/17 09/17/17 09/17/17 05:27 06:10 06:10 WBC 34.6 H RBC 2.75 L Hgb 8.4 L Hct 24.8 L MCV MCH RDW 18.3 H Plt Count Lymph % (Auto) [place] % (Auto) [place] # Seg Neutrophils % Seg Neuts % (Manual) 77.0 H Lymphocytes % (Manual) 5.0 L Monocytes % (Manual) Nucleated RBC % 2.0 H Seg Neutrophils # Seg Neutrophils # Man 26.6 H Lymphocytes # (Manual) Monocytes # (Manual) 2.4 H Eosinophils # (Manual) Basophils # (Manual) PT INR POC ABG pH ABG pH POC ABG pCO2 POC ABG pO2 ABG pO2 ABG O2 Saturation ABG Base Excess ABG Hemoglobin Oxyhemoglobin Sodium Potassium Chloride Carbon Dioxide BUN 82 H Creatinine 2.1 H Glucose 252 H POC Glucose 243 H Calcium 8.3 L Phosphorus Magnesium Iron TIBC Ferritin Total Bilirubin AST ALT Alkaline Phosphatase Total Creatine Kinase Troponin T C-Reactive Protein Total Protein Albumin Triglycerides HDL Cholesterol Miscellaneous Test Crossmatch 09/17/17 09/18/17 09/18/17 11:42 00:08 05:10 WBC 24.4 H RBC 2.57 L Hgb 7.8 L Hct 23.2 L MCV MCH RDW 19.5 H Plt Count Lymph % (Auto) [place] % (Auto) [place] # Seg Neutrophils % Seg Neuts % (Manual) 78.0 H Lymphocytes % (Manual) 6.0 L Monocytes % (Manual) Nucleated RBC % 2.0 H Seg Neutrophils # Seg Neutrophils # Man 19.0 H Lymphocytes # (Manual) Monocytes # (Manual) Eosinophils # (Manual) Basophils # (Manual) PT INR POC ABG pH ABG pH POC ABG pCO2 POC ABG pO2 ABG pO2 ABG O2 Saturation ABG Base Excess ABG Hemoglobin Oxyhemoglobin Sodium Potassium Chloride Carbon Dioxide BUN Creatinine Glucose POC Glucose 232 H 275 H Calcium Phosphorus Magnesium Iron TIBC Ferritin Total Bilirubin AST ALT Alkaline Phosphatase Total Creatine Kinase Troponin T C-Reactive Protein Total Protein Albumin Triglycerides HDL Cholesterol Miscellaneous Test Crossmatch 09/18/17 09/18/17 05:10 05:23 WBC RBC Hgb Hct MCV MCH RDW Plt Count Lymph % (Auto) [place] % (Auto) [place] # Seg Neutrophils % Seg Neuts % (Manual) Lymphocytes % (Manual) Monocytes % (Manual) Nucleated RBC % Seg Neutrophils # Seg Neutrophils # Man Lymphocytes # (Manual) Monocytes # (Manual) Eosinophils # (Manual) Basophils # (Manual) PT INR POC ABG pH ABG pH POC ABG pCO2 POC ABG pO2 ABG pO2 ABG O2 Saturation ABG Base Excess ABG Hemoglobin Oxyhemoglobin Sodium Potassium Chloride Carbon Dioxide BUN 103 H Creatinine 2.8 H Glucose 173 H POC Glucose 224 H Calcium Phosphorus Magnesium Iron TIBC Ferritin Total Bilirubin AST ALT Alkaline Phosphatase Total Creatine Kinase Troponin T C-Reactive Protein Total Protein Albumin Triglycerides HDL Cholesterol Miscellaneous Test Crossmatch
[2017-09-18] MEDS: PROTONIX IV SCH (10:04)
[2017-09-18] MEDS: LEVEMIR SUB-Q SCH (10:07)
[2017-09-18] MEDS: MYCAMINE 100 MG in NACL 0.9% 100 ML IV SCH (10:09)
--- NOTE | 2017-09-18 11:03 | Progress Note ---
Assessment and Plan Assessment: 1) Sepsis with septic shock: leukocytosis better; new source ? colonic perf. Restared on IV solumedrol 09/13 -CRP= 34 -->30 -->19-->0.1 ->2.8 -procalcitonin=1.3 -->7.6 -->3.9 -->3.2 2) Initial Bowel obstruction / suspect ?gastric perforation ? peritonitis -S/P Exlap, G-tube placement, EGD, abdominal washout and removal of PD -OR findings - bowel obstruction due to entanglement of PD cath, abscess cavity in LUQ and ? suspect perforation of unclear location 3) Intiial CA-UTI: chronic ivan exchanged every 4 weeks and ureteral stents in place which are exchanged every 6 months 4) Paraplegia 5) ESRD on PD - no evidence of peritonitis, wbc count 2. JEWELRY DIPPER and Diphteroids on peritoneal fluid likely contaminants. 6) Recent pancreatitis 7) Penicillin allergy-has taken keflex w/o problems 8) Presumed Surgical wound infection / dehiscence ? 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 11) Sacral stage II 12) Anemia- severe- Hg 6.7 today 13) Colonic perforation: -S/P exlap, transverse colectomy, right sided colostomy and wash out on 09/15 Plan: -continue micafungin day 8 of (extended in view of colonic perf) -continue meropenem (extended in view of colonic perf) -monitor leukocytosis which is as expected since she was started back on IV steroids. -wound care Thank you Dr Baez for your consultation, will follow up with you. Ramya Lang MD Infectious Diseases Specialist [facility] ([facility] M [phone] O [phone] Subjective Date of service: 09/18/17 Principal diagnosis: respiratory failure, sepsis, shock rectal bleeding Interval history: Pt remains on the vent still levophed at 8 mcg,on TPN, fentanyl, no fever. Microbiology: Blood cultures: 08/08 neg 08/12 neg 08/16 neg 08/20 neg 08/29 neg 09/06 neg 09/12 ngtd Urine cultures: 08/08 10-100K skin grace Respiratory cultures: 08/30 tracheal asp MRSA Wound cultures: 08/26 Staph aureus and Kristine 08/28 MRSA, E faecalis, Kristine albicans Stool cultures: Other: 08/08 peritoneal fluid + JEWELRY DIPPER/Diphteroids Current Antimicrobials: meropenem 09/09 micafungin 09/11 Previous Antimicrobials: 08/10 levaquin 08/16 vancomycin 08/13 meropenem 08/16 fluconazole Micafungin 08/29 meropenem 08/29 zyvox 09/03 fluconazole 09/03 dapto 09/10 Objective - Exam Narrative Exam: General appearance: alert this am on vent via trach Eyes: anicteric sclerae, moist conjunctivae; no lid-lag; PERRLA HENT: Atraumatic; NGT Neck: Trach in place Lungs: coarse BS moreno CV: RRR Abdomen: soft, midline surgical wound with sutures no drainage. Gtube. colostomy Extremities: + peripheral edema + leg ulcer no drainage Skin: right groin old fem line wound no erythema, no drainage Psych: sedated. Neuro: sedated Lines: right IJ vas cath / Right IJ Nair 08/16 - Constitutional Vitals: Vital Signs Temp Pulse Resp BP Pulse Ox 98.4 F 81 18 133/55 91 09/18/17 08:00 09/18/17 09:22 09/18/17 09:22 09/18/17 09:09 09/18/17 09:09 Temperature -Last 24 Hours Temperature 98.4 F Temperature 99.5 F Temperature 98.2 F Temperature 98.1 F Temperature 97.7 F Temperature 97.7 F Temperature 97.8 F Temperature 97.7 F - Labs CBC & Chem 7: 09/18/17 05:10 09/18/17 05:10 Labs: Abnormal lab results 09/17/17 09/18/17 09/18/17 Range/Units 11:42 00:08 05:10 WBC 24.4 H (4.5-11.0) K/mm3 RBC 2.57 L (3.65-5.03) M/mm3 Hgb 7.8 L (10.1-14.3) gm/dl Hct 23.2 L (30.3-42.9) % RDW 19.5 H (13.2-15.2) % Seg Neuts % (Manual) 78.0 H (40.0-70.0) % Lymphocytes % (Manual) 6.0 L (13.4-35.0) % Nucleated RBC % 2.0 H (0.0-0.9) % Seg Neutrophils # Man 19.0 H (1.8-7.7) K/mm3 BUN (7-17) mg/dL Creatinine (0.7-1.2) mg/dL Glucose (65-100) mg/dL POC Glucose 232 H 275 H (70-105) 09/18/17 09/18/17 Range/Units 05:10 05:23 WBC (4.5-11.0) K/mm3 RBC (3.65-5.03) M/mm3 Hgb (10.1-14.3) gm/dl Hct (30.3-42.9) % RDW (13.2-15.2) % Seg Neuts % (Manual) (40.0-70.0) % Lymphocytes % (Manual) (13.4-35.0) % Nucleated RBC % (0.0-0.9) % Seg Neutrophils # Man (1.8-7.7) K/mm3 BUN 103 H (7-17) mg/dL Creatinine 2.8 H (0.7-1.2) mg/dL Glucose 173 H (65-100) mg/dL POC Glucose 224 H (70-105)
[2017-09-18] MEDS: LEVOPHED 8 MG in NACL 0.9% 250ML 242 ML IV SCH (11:05)
[2017-09-18] MEDS: DILAUDID IV PRN (12:06)
[2017-09-18] MEDS: MERREM 1,000 MG in NACL 0.9% 100 ML IV SCH (13:52)
--- NOTE | 2017-09-18 18:28 | Progress Note ---
Assessment and Plan Assessment and plan: 62 YO Female with MO, ESRD-PD (with PD cath in place )(Daily), HTN, OA, Ischemic Cardiomyopathy who was on milrinone, Chronic Pain who came to ED with lightheaded and syncope, she c/o abdomnal pain x 2 days, was found to have hypotension, septic shock and intra-abdominal abscess. Sepsis secondary to peritonitis, Intra abdominal abscess and Bowel obstruction - continue abx, -ID on board, Currently on Meropenem and Micafungin She is now status post colostomy. She continues to have large amounts of purulent drainage from her abdominal drains. - she has had the following procedures 09/15/17: Ex lap, transverse colectomy, R colostomy and abdominal wash out 08/31: Ex lap with abdominal wash out and closure 08/17: Ex lap with G tube placement, EGD, abdominal wash out and removal of PD Cath Acute hypoxic respiratory failure on MV > 96 hours continue ventilator, planned for tracheostomy, has failed extubation multiple times planned for LTAC Acute rectal bleeding with severe acute blood loss anemia -EGD showed small gastric ulcer -sp multiple transfusions -- GI consult appreciated - Patient had CTA of abdomen and pelvis no active bleeding, CT Abdomen repeated 09/06, no acute findings - transfuse to keep Hg above 8 given septic shock -, too unstable for C scope at this time -wean steroids GIB likely from bleeding from gastric perforation and surgical wound monitor Hg and transfuse to keep above 8 now improved ESRD -continue HD per renal per femoral HD cath -needs perm cath when improved Septic shock. - continue IV pressors continue abx, ID input appreciated Ulcerative esophagitis/small gastric ulcer on EGD continue PPI Severe Protein calorie malnutrition - Continue with TPN Sacral and lower extremity wound, POA - continue wound care NSVT resolved, likely due to levophed, wean as tolerated cardiology input appreciated --DVT prophylaxis; SCDs - D/C Heparin because of GI bleed Plan of care discussed with the patient's family at bedside Disposition - continue ICU care Prognosis: guarded The high probability of a clinically significant, sudden or life threatening deterioration of the [cv, pulmonary and GI] system(s) required my full and direct attention, intervention and personal management. The aggregate critical care time was [33] minutes. This time is in addition to time spent performing reported procedures but includes the following: [] Data Review and interpretation [] Patient assessment and monitoring of vital signs [] Documentation [] Medication orders and management History Interval history: She has had no more episodes of melena today. having copious amounts of purulent output in Abdominal drains Hospitalist Physical - Physical exam Narrative exam: General.: Obese HEENT: Moist mucous membranes, extraocular muscles intact, no lymphadenopathy Neck: supple Cardiac: S1-S2 heard Lungs: clear to auscultation bilaterally Abdomen: soft, bowel sounds normal, other (obese, soft, dressing not removed) Extremities: no edema clubbing or cyanosis Skin: no rash or lesions Neurologic: trached, obeys commands, arousable - Constitutional Vitals: Temp Pulse Resp BP Pulse Ox 98.8 F 103 H 17 85/49 94 09/18/17 17:00 09/18/17 18:15 09/18/17 17:30 09/18/17 18:15 09/18/17 17:01 General appearance: Present: mild distress Results - Labs CBC & Chem 7: 09/20/17 11:41 09/20/17 04:46 Labs: Laboratory Last Values WBC 24.4 K/mm3 (4.5-11.0) H 09/18/17 05:10 RBC 2.57 M/mm3 (3.65-5.03) L 09/18/17 05:10 Hgb 7.8 gm/dl (10.1-14.3) L 09/18/17 05:10 Hct 23.2 % (30.3-42.9) L 09/18/17 05:10 MCV 90 fl (79-97) 09/18/17 05:10 MCH 30 pg (28-32) 09/18/17 05:10 MCHC 34 % (30-34) 09/18/17 05:10 RDW 19.5 % (13.2-15.2) H 09/18/17 05:10 Plt Count 260 K/mm3 (140-440) 09/18/17 05:10 Lymph % (Auto) Deskidding Machine Operator 08/19/17 07:37 [place] % (Auto) Deskidding Machine Operator 09/13/17 Unknown Eos % (Auto) Deskidding Machine Operator 08/19/17 07:37 Baso % (Auto) Deskidding Machine Operator 08/19/17 07:37 Lymph # Deskidding Machine Operator 08/19/17 07:37 [place] # Deskidding Machine Operator 08/19/17 07:37 Eos # Deskidding Machine Operator 08/19/17 07:37 Baso # Deskidding Machine Operator 08/19/17 07:37 Add Manual Diff Complete 09/18/17 05:10 Total Counted 100 09/18/17 05:10 Seg Neutrophils % Deskidding Machine Operator 09/08/17 04:05 Seg Neuts % (Manual) 78.0 % (40.0-70.0) H 09/18/17 05:10 Band Neutrophils % 14.0 % 09/18/17 05:10 Lymphocytes % (Manual) 6.0 % (13.4-35.0) L 09/18/17 05:10 Reactive Lymphs % (Man) 0 % 09/18/17 05:10 Monocytes % (Manual) 2.0 % (0.0-7.3) 09/18/17 05:10 Eosinophils % (Manual) 0 % (0.0-4.3) 09/18/17 05:10 Basophils % (Manual) 0 % (0.0-1.8) 09/18/17 05:10 Metamyelocytes % 0 % 09/18/17 05:10 Myelocytes % 0 % 09/18/17 05:10 Promyelocytes % 0 % 09/18/17 05:10 Blast Cells % 0 % 09/18/17 05:10 Nucleated RBC % 2.0 % (0.0-0.9) H 09/18/17 05:10 Seg Neutrophils # Deskidding Machine Operator 08/19/17 07:37 Seg Neutrophils # Man 19.0 K/mm3 (1.8-7.7) H 09/18/17 05:10 Band Neutrophils # 3.4 K/mm3 09/18/17 05:10 Lymphocytes # (Manual) 1.5 K/mm3 (1.2-5.4) 09/18/17 05:10 Abs React Lymphs (Man) 0.0 K/mm3 09/18/17 05:10 Monocytes # (Manual) 0.5 K/mm3 (0.0-0.8) 09/18/17 05:10 Eosinophils # (Manual) 0.0 K/mm3 (0.0-0.4) 09/18/17 05:10 Basophils # (Manual) 0.0 K/mm3 (0.0-0.1) 09/18/17 05:10 Metamyelocytes # 0.0 K/mm3 09/18/17 05:10 Myelocytes # 0.0 K/mm3 09/18/17 05:10 Promyelocytes # 0.0 K/mm3 09/18/17 05:10 Blast Cells # 0.0 K/mm3 09/18/17 05:10 Pathologist Review Not Reportable 08/30/17 05:20 WBC Morphology Not Reportable 09/18/17 05:10 Hypersegmented Neuts Not Reportable 09/18/17 05:10 Hyposegmented Neuts Not Reportable 09/18/17 05:10 Hypogranular Neuts Not Reportable 09/18/17 05:10 Smudge Cells Not Reportable 09/18/17 05:10 Toxic Granulation Not Reportable 09/18/17 05:10 Toxic Vacuolation Not Reportable 09/18/17 05:10 Dohle Bodies Not Reportable 09/18/17 05:10 Pelger-Huet Anomaly Not Reportable 09/18/17 05:10 Ariel Rods Not Reportable 09/18/17 05:10 Platelet Estimate Consistent w auto 09/18/17 05:10 Clumped Platelets Not Reportable 09/18/17 05:10 Plt Clumps, EDTA Not Reportable 09/18/17 05:10 Large Platelets Not Reportable 09/18/17 05:10 Giant Platelets Not Reportable 09/18/17 05:10 Platelet Satelliting Not Reportable 09/18/17 05:10 Plt Morphology Comment Not Reportable 09/18/17 05:10 RBC Morphology Not Reportable 09/18/17 05:10 Dimorphic RBCs Not Reportable 09/18/17 05:10 Polychromasia Few 09/18/17 05:10 Hypochromasia Not Reportable 09/18/17 05:10 Poikilocytosis Not Reportable 09/18/17 05:10 Anisocytosis 1+ 09/18/17 05:10 Microcytosis Not Reportable 09/18/17 05:10 Macrocytosis Not Reportable 09/18/17 05:10 Spherocytes Not Reportable 09/18/17 05:10 Pappenheimer Bodies Not Reportable 09/18/17 05:10 Sickle Cells Not Reportable 09/18/17 05:10 Target Cells Not Reportable 09/18/17 05:10 Tear Drop Cells Not Reportable 09/18/17 05:10 Ovalocytes Not Reportable 09/18/17 05:10 Stomatocytes Rare 09/12/17 05:25 Helmet Cells Not Reportable 09/18/17 05:10 Vera-Winside Bodies Not Reportable 09/18/17 05:10 [place] Rings Not Reportable 09/18/17 05:10 Yusuf Cells Not Reportable 09/18/17 05:10 Bite Cells Not Reportable 09/18/17 05:10 Crenated Cell Not Reportable 09/18/17 05:10 Elliptocytes Not Reportable 09/18/17 05:10 Acanthocytes (Spur) Not Reportable 09/18/17 05:10 Rouleaux Not Reportable 09/18/17 05:10 Hemoglobin C Crystals Not Reportable 09/18/17 05:10 Schistocytes Not Reportable 09/18/17 05:10 Malaria parasites Not Reportable 09/18/17 05:10 Jovanni Bodies Not Reportable 09/18/17 05:10 Hem Pathologist Commnt No 09/18/17 05:10 PT 15.4 Sec. (12.2-14.9) H 09/15/17 12:45 INR 1.16 (0.87-1.13) H 09/15/17 12:45 APTT 28.7 Sec. (24.2-36.6) 08/31/17 18:15 POC ABG pH 7.347 (7.35-7.45) L 09/13/17 11:36 ABG pH 7.323 pH Units (7.350-7.450) L 09/09/17 Unknown POC ABG pCO2 34.3 (35-45) L 09/13/17 11:36 ABG pCO2 41.1 mm Hg 09/09/17 Unknown POC ABG pO2 134 (80-105) H 09/13/17 11:36 ABG pO2 94.1 mm Hg (80.0-90.0) H 09/09/17 Unknown POC ABG HCO3 18.8 09/13/17 11:36 ABG HCO3 20.9 mmol/L (20.0-26.0) 09/09/17 Unknown POC ABG Total CO2 20 09/13/17 11:36 POC ABG O2 Sat 99 09/13/17 11:36 ABG O2 Saturation 97.2 % (95.0-99.0) 09/09/17 Unknown ABG O2 Content 10.9 (0.0-44) 09/09/17 Unknown POC ABG Base Excess -7 09/13/17 11:36 ABG Base Excess -4.8 mmol/L (-2.0-3.0) L 09/09/17 Unknown ABG Hemoglobin 8.0 gm/dl (12.0-16.0) L 09/09/17 Unknown ABG Carboxyhemoglobin 2.0 % (0.0-5.0) 09/09/17 Unknown ABG Methemoglobin 0.3 % (0.0-1.5) 09/09/17 Unknown VBG pH 7.462 (7.320-7.420) H 08/08/17 14:52 Oxyhemoglobin 94.9 % (95.0-99.0) L 09/09/17 Unknown FiO2 30 % 09/13/17 11:36 Sodium 141 mmol/L (137-145) 09/18/17 05:10 Potassium 4.3 mmol/L (3.6-5.0) 09/18/17 05:10 Chloride 101.4 mmol/L (98-107) 09/18/17 05:10 Carbon Dioxide 22 mmol/L (22-30) 09/18/17 05:10 Anion Gap 22 mmol/L 09/18/17 05:10 BUN 103 mg/dL (7-17) H 09/18/17 05:10 Creatinine 2.8 mg/dL (0.7-1.2) H 09/18/17 05:10 Estimated GFR 21 ml/min 09/18/17 05:10 BUN/Creatinine Ratio 37 % 09/18/17 05:10 Glucose 173 mg/dL (65-100) H 09/18/17 05:10 POC Glucose 268 (70-105) H 09/18/17 13:59 Lactic Acid 1.60 mmol/L (0.7-2.0) 08/17/17 11:20 Calcium 8.9 mg/dL (8.4-10.2) 09/18/17 05:10 Phosphorus 3.40 mg/dL (2.5-4.5) D 09/17/17 06:10 Magnesium 1.70 mg/dL (1.7-2.3) 09/16/17 05:30 Iron 22 ug/dL (37-170) L 09/12/17 05:25 TIBC 81 mcg/dL (250-450) L 09/12/17 05:25 Ferritin > 2000.0 ng/mL (13.0-400.0) H 09/12/17 05:25 Total Bilirubin 2.40 mg/dL (0.1-1.2) H 09/16/17 05:30 Direct Bilirubin 0.2 mg/dL (0-0.2) 08/08/17 14:11 Indirect Bilirubin 0.3 mg/dL 08/08/17 14:11 AST 90 units/L (5-40) H 09/16/17 05:30 ALT 45 units/L (7-56) 09/16/17 05:30 Alkaline Phosphatase 298 units/L (35-129) H 09/16/17 05:30 Ammonia 25.0 umol/L (25-60) 08/08/17 14:52 Total Creatine Kinase 20 units/L (30-135) L 09/16/17 05:30 Troponin T 0.132 ng/mL (0.00-0.029) H* 08/09/17 13:25 C-Reactive Protein 2.80 mg/dL (0.00-1.30) H 09/06/17 05:30 NT-Pro-B Natriuret Pep 6156 pg/mL (0-900) H 08/08/17 14:11 Total Protein 4.1 g/dL (6.3-8.2) L 09/16/17 05:30 Albumin 1.8 g/dL (3.9-5) L 09/16/17 05:30 Albumin/Globulin Ratio 0.8 % 09/16/17 05:30 Triglycerides 180 mg/dL (2-149) H 09/03/17 04:00 Cholesterol 91 mg/dL (50-199) 08/08/17 21:23 LDL Cholesterol Direct 53 mg/dL (50-130) 08/08/17 21:23 HDL Cholesterol 26 mg/dL (40-59) L 08/08/17 21:23 Cholesterol/HDL Ratio 3.50 % 08/08/17 21:23 Amylase 45 units/L (27-131) 08/16/17 09:50 Lipase 34 units/L (13-60) 08/16/17 09:50 TSH 6.580 mlU/mL (0.270-4.200) H 08/08/17 14:22 Free T4 1.46 ng/dL (0.76-1.46) 08/08/17 14:22 Total Cortisol 28.3 mcg/dL () 09/13/17 12:50 Urine Color Yellow (Yellow) 08/08/17 20:15 Urine Turbidity Turbid (Clear) 08/08/17 20:15 Urine pH 8.0 (5.0-7.0) H 08/08/17 20:15 Ur Specific [place] 1.015 (1.003-1.030) 08/08/17 20:15 Urine Protein 100 mg/dl mg/dL (Negative) 08/08/17 20:15 Urine Glucose (UA) Neg mg/dL (Negative) 08/08/17 20:15 Urine Ketones Neg mg/dL (Negative) 08/08/17 20:15 Urine Blood Mod (Negative) 08/08/17 20:15 Urine Nitrite Neg (Negative) 08/08/17 20:15 Urine Bilirubin Neg (Negative) 08/08/17 20:15 Urine Urobilinogen < 2.0 mg/dL (<2.0) 08/08/17 20:15 Ur Leukocyte Esterase Lg (Negative) 08/08/17 20:15 Urine WBC (Auto) 24.0 /HPF (0.0-6.0) H 08/08/17 20:15 Urine RBC (Auto) 3.0 /HPF (0.0-6.0) 08/08/17 20:15 U Epithel Cells (Auto) 3.0 /HPF (0-13.0) 08/08/17 20:15 Urine Bacteria (Auto) 4+ /HPF (Negative) 08/08/17 20:15 Urine Mucus 3+ /HPF 08/08/17 20:15 Fluid Type Peritoneal 08/08/17 18:18 Fluid Color Straw 08/08/17 18:18 Fluid Appearance Clear 08/08/17 18:18 Fluid pH 7.74 08/08/17 18:18 Fluid WBC 4 /mm3 08/08/17 18:18 Fluid RBC 1 /mm3 08/08/17 18:18 Fluid Seg Neutrophils 12 % 08/08/17 18:18 Fluid Lymphocytes 0 % 08/08/17 18:18 Fluid Reactive Lymphs 0 % 08/08/17 18:18 Fluid Monocytes 1 % 08/08/17 18:18 Fluid Eosinophils 0 % 08/08/17 18:18 Fluid Basophils 0 % 08/08/17 18:18 Fluid Glucose 315 mg/dL (40-70) H 08/08/17 18:18 Random Vancomycin 19.5 ug/mL (0-40.0) 08/22/17 03:40 Hep Bs Antigen Non-reactive (Negative) 08/22/17 03:40 Hepatitis C Antibody Non-reactive (NonReactive) 08/22/17 03:40 Miscellaneous Test Flexitest 1 H 09/06/17 09:57 Blood Type O POSITIVE 09/15/17 12:45 Antibody Screen Negative 09/15/17 12:45 VAN Antibody Screen Negative 09/07/17 17:07 Crossmatch See Detail 09/15/17 12:45
[2017-09-18] MEDS ORDERED: TPN ADULT 1,800 ML IV SCH (20:00)
[2017-09-18] MEDS ORDERED: INTRALIPID 20% 250 ML IV SCH (20:00)
[2017-09-18] MEDS: HEPARIN IV PRN (20:43)
--- NOTE | 2017-09-18 20:47 | Progress Note ---
Assessment and Plan - Patient Problems (1) Leukocytosis Current Visit: Yes Status: Acute Qualifiers: Leukocytosis type: L Plan to address problem: See notes above. make sure that PD access is clean also. see notes. Probably infection from the infected PD catheter. improving. back up again. up/down continue to monitor. it continuos to rise. still high. improved. Back up. Now improving again. (2) Anemia Current Visit: Yes Status: Acute Qualifiers: Anemia type: A Iron deficiency anemia type: I Vitamin B12 deficiency anemia type: V Folate deficiency anemia type: F Bone marrow failure anemia type: B Hemolytic anemia type: H Other causes of anemia: O Chronic kidney disease stage: C Plan to address problem: see notes , monitor labs,. see notes above. continue to monitor labs with you. blood transfusion. S/P replacement transfusion. fair. s/p 1unit transfusion. see notes. Still at 7.4 6.9, scheduled for replacement. Fairly stable at this time. continue to monitor. (3) Acute respiratory failure Current Visit: Yes Status: Acute Qualifiers: Respiratory failure complication: R Plan to address problem: follow pulm. Subjective Date of service: 09/18/17 Principal diagnosis: respiratory failure, sepsis, shock rectal bleeding Interval history: Patient seen today/examined, labs reviewed, case d/w she, and family.complaints of abdominal pain. Patient resting in bed in the ICU, post vascular procedure. labs reviewed, Reactive thrombocytosis, anemia of CD, leukocytosis from infection vs inflamatory process. Patient seen/examined, in bed in the ICU, on the vent post surgery.Labs reviewed , notes reviewed. will continue to monitor labs/patient with you. Replacement transfusion, if /when indicated. patient seen/examined, SBP75, on pressors., lethargic, on the vent, labs reviewed, wbc 39,000 Patient seen/examined, case reviewed, d/w her sister at the bed side. Patient seen/examined, labs reviewed, notes reviewed. severe septic shock from infected PD catheter The high wbc is all infection related. H?H low, and may get replacement transfusion with the next HD. Prognosis remain quite poor. Patient seen/examined, extubated, now on V Mask. labs reviewed. patient seen/examined, resting in bed, still some what lethargic . labs reviewed. Patient seen/examined, resting in bed., some difficulty with breathing./ lethargic. patient seen/examined, resting in bed, looked much better labs reviewed, and fair over all. Patient seen/examined, resting in bed, labs reviewed, case d/w her. Patient seen/examined, resting in bed on BIPAP., labs reviewed. patient seen/examined, resting in bed, on Bipap.labs reviewed, fairly stable. Patient seen today, resting in bed, labs reviewed, H/H low, and transfusion already ordered. Patient seen/examined, resting in bed, transferred back to the unit, due to resp failure. She is now on venting mask. had blood replacement done. Patient seen/examined in the ICU.labs reviewed. patient intubated this am. patient resting in bed.no new issues. Patient seen/examined in the ICU, on vent,Not readily responsive. patient seen, resting in bed, no new cbc ready.will order for today. Patient seen, resting in vent, labs reviewed.notes reviewed also. patient seen/examined, resting on vent, had HD yesterday, and today., labs reviewed. Patient seen, resting in bed, labs reviewed.fairly stable labs, except the wbc. Patient seen/examined, rtesting in bed on the vent.Labs reviewed, wbc still elevated, Hgb dropped slightly. Patient seen/examined, labs reviewed, hgb 7.3, if 7.0 or less, will replace .unless otherwise indicated. Patient seen/examined, alert but lethargic.sedation drip turned down.she is s/p 1unit PRBC replacement with HD today. Patient seen/examined, labs reviewed, hgb still not quite enough at 7.5, perhaps with the next HD,can use 1-2 units. Patient seen/examined, resting in bed, trached, labs re viewed. Patient seen/examined, resting in bed, responds to name calling, SBP99, labs reviewed, Hgb 6.9, PRBC replacement ordered by primary. Patient seen/examined, in bed/trach, NGT., alert/lethargic. Patient seen/examined, resting in bed, still lethargic, labs reviewed, and still fair.Will continue to follow you. Patient seen/examined, resting in bed, labs reviewed. HD in progress.She is now getting daily HD.Labs reviewed, and still fair. Objective - Constitutional Vitals: Vital Signs - 12hr 10/25/17 10/25/17 10/25/17 08:46 09:00 09:09 Temperature Pulse Rate 82 80 80 Pulse Rate [ Anterior Bilateral Throughout] Respiratory 17 16 Rate Respiratory Rate [Anterior Bilateral Throughout] Blood Pressure 126/53 133/55 133/55 O2 Sat by Pulse 100 100 91 Oximetry O2 Sat by Pulse Oximetry [ Assessment] 09/18/17 09/18/17 09/18/17 09:10 09:16 09:22 Temperature Pulse Rate 90 Pulse Rate [ 80 81 Anterior Bilateral Throughout] Respiratory 14 Rate Respiratory 18 18 Rate [Anterior Bilateral Throughout] Blood Pressure 141/62 O2 Sat by Pulse 97 Oximetry O2 Sat by Pulse Oximetry [ Assessment] 09/18/17 09/18/17 09/18/17 09:30 09:46 10:00 Temperature Pulse Rate 84 93 H 93 H Pulse Rate [ Anterior Bilateral Throughout] Respiratory 16 16 18 Rate Respiratory Rate [Anterior Bilateral Throughout] Blood Pressure 126/58 137/61 119/50 O2 Sat by Pulse 100 100 100 Oximetry O2 Sat by Pulse 100 Oximetry [ Assessment] 09/18/17 09/18/17 09/18/17 10:15 10:30 10:46 Temperature Pulse Rate 98 H 68 82 Pulse Rate [ Anterior Bilateral Throughout] Respiratory 16 17 18 Rate Respiratory Rate [Anterior Bilateral Throughout] Blood Pressure 117/59 123/79 93/56 O2 Sat by Pulse 98 98 97 Oximetry O2 Sat by Pulse Oximetry [ Assessment] 09/18/17 09/18/17 09/18/17 11:00 11:16 11:30 Temperature Pulse Rate 81 85 77 Pulse Rate [ Anterior Bilateral Throughout] Respiratory 20 19 20 Rate Respiratory Rate [Anterior Bilateral Throughout] Blood Pressure 102/61 108/51 106/47 O2 Sat by Pulse 94 100 100 Oximetry O2 Sat by Pulse Oximetry [ Assessment] 09/18/17 09/18/17 09/18/17 11:45 12:00 12:16 Temperature 98.8 F Pulse Rate 92 H 109 H 101 H Pulse Rate [ Anterior Bilateral Throughout] Respiratory 18 20 16 Rate Respiratory Rate [Anterior Bilateral Throughout] Blood Pressure 115/52 114/78 106/65 O2 Sat by Pulse 100 95 94 Oximetry O2 Sat by Pulse Oximetry [ Assessment] 09/18/17 09/18/17 09/18/17 12:30 12:46 13:00 Temperature Pulse Rate 100 H 110 H 90 Pulse Rate [ Anterior Bilateral Throughout] Respiratory 17 20 18 Rate Respiratory Rate [Anterior Bilateral Throughout] Blood Pressure 112/68 112/61 114/50 O2 Sat by Pulse 96 99 100 Oximetry O2 Sat by Pulse Oximetry [ Assessment] 09/18/17 09/18/17 09/18/17 13:15 13:30 13:45 Temperature Pulse Rate 96 H 84 92 H Pulse Rate [ Anterior Bilateral Throughout] Respiratory 17 19 17 Rate Respiratory Rate [Anterior Bilateral Throughout] Blood Pressure 112/51 109/48 115/53 O2 Sat by Pulse 100 100 100 Oximetry O2 Sat by Pulse Oximetry [ Assessment] 09/18/17 09/18/17 09/18/17 14:00 14:15 14:30 Temperature Pulse Rate 94 H 91 H 87 Pulse Rate [ Anterior Bilateral Throughout] Respiratory 15 18 18 Rate Respiratory Rate [Anterior Bilateral Throughout] Blood Pressure 113/50 115/52 115/52 O2 Sat by Pulse 100 100 93 Oximetry O2 Sat by Pulse Oximetry [ Assessment] 09/18/17 09/18/17 09/18/17 14:46 15:00 15:16 Temperature Pulse Rate 103 H 110 H 92 H Pulse Rate [ Anterior Bilateral Throughout] Respiratory 22 17 19 Rate Respiratory Rate [Anterior Bilateral Throughout] Blood Pressure 76/36 118/50 141/59 O2 Sat by Pulse 100 100 100 Oximetry O2 Sat by Pulse Oximetry [ Assessment] 09/18/17 09/18/17 09/18/17 15:30 15:45 16:00 Temperature 99.1 F Pulse Rate 104 H 99 H 108 H Pulse Rate [ Anterior Bilateral Throughout] Respiratory 16 21 13 Rate Respiratory Rate [Anterior Bilateral Throughout] Blood Pressure 150/50 150/50 108/48 O2 Sat by Pulse 100 100 100 Oximetry O2 Sat by Pulse Oximetry [ Assessment] 09/18/17 09/18/17 09/18/17 16:15 16:30 16:35 Temperature Pulse Rate 105 H 90 Pulse Rate [ 88 Anterior Bilateral Throughout] Respiratory 15 14 Rate Respiratory 20 Rate [Anterior Bilateral Throughout] Blood Pressure 86/52 81/42 O2 Sat by Pulse 97 Oximetry O2 Sat by Pulse Oximetry [ Assessment] 09/18/17 09/18/17 09/18/17 16:36 16:39 16:45 Temperature Pulse Rate 90 97 H Pulse Rate [ Anterior Bilateral Throughout] Respiratory 20 Rate Respiratory Rate [Anterior Bilateral Throughout] Blood Pressure 81/42 86/52 O2 Sat by Pulse 92 94 Oximetry O2 Sat by Pulse 99 Oximetry [ Assessment] 09/18/17 09/18/17 09/18/17 16:55 17:00 17:01 Temperature 98.8 F Pulse Rate 100 H Pulse Rate [ 92 H Anterior Bilateral Throughout] Respiratory 16 Rate Respiratory 22 Rate [Anterior Bilateral Throughout] Blood Pressure 109/48 109/48 O2 Sat by Pulse 94 Oximetry O2 Sat by Pulse Oximetry [ Assessment] 09/18/17 09/18/17 09/18/17 17:05 17:15 17:30 Temperature Pulse Rate 100 H 106 H 108 H Pulse Rate [ Anterior Bilateral Throughout] Respiratory 17 Rate Respiratory Rate [Anterior Bilateral Throughout] Blood Pressure 109/48 132/49 86/56 O2 Sat by Pulse Oximetry O2 Sat by Pulse Oximetry [ Assessment] 09/18/17 09/18/17 09/18/17 17:45 18:00 18:01 Temperature Pulse Rate 113 H 110 H 111 H Pulse Rate [ Anterior Bilateral Throughout] Respiratory 17 14 Rate Respiratory Rate [Anterior Bilateral Throughout] Blood Pressure 92/56 86/55 86/55 O2 Sat by Pulse Oximetry O2 Sat by Pulse Oximetry [ Assessment] 09/18/17 09/18/17 09/18/17 18:15 18:30 18:45 Temperature Pulse Rate 103 H 99 H 100 H Pulse Rate [ Anterior Bilateral Throughout] Respiratory 15 17 17 Rate Respiratory Rate [Anterior Bilateral Throughout] Blood Pressure 85/49 104/59 100/50 O2 Sat by Pulse Oximetry O2 Sat by Pulse Oximetry [ Assessment] 09/18/17 09/18/17 09/18/17 19:00 19:17 19:32 Temperature Pulse Rate 98 H 100 H 100 H Pulse Rate [ Anterior Bilateral Throughout] Respiratory 15 Rate Respiratory Rate [Anterior Bilateral Throughout] Blood Pressure 103/58 98/58 99/61 O2 Sat by Pulse Oximetry O2 Sat by Pulse Oximetry [ Assessment] 09/18/17 09/18/17 09/18/17 19:45 20:00 20:01 Temperature 99.0 F Pulse Rate 105 H 111 H Pulse Rate [ Anterior Bilateral Throughout] Respiratory Rate Respiratory Rate [Anterior Bilateral Throughout] Blood Pressure 106/47 93/55 O2 Sat by Pulse Oximetry O2 Sat by Pulse Oximetry [ Assessment] 09/18/17 09/18/17 09/18/17 20:15 20:23 20:38 Temperature 98.8 F Pulse Rate 99 H 100 H 96 H Pulse Rate [ Anterior Bilateral Throughout] Respiratory 15 Rate Respiratory Rate [Anterior Bilateral Throughout] Blood Pressure 104/45 104/45 111/48 O2 Sat by Pulse Oximetry O2 Sat by Pulse Oximetry [ Assessment] General appearance: Present: well-nourished - EENT Eyes: PERRL, EOM intact ENT: hearing intact, clear oral mucosa Ears: bilateral: normal - Neck Neck: supple, normal ROM - Respiratory Respiratory: bilateral: diminished, rhonchi - Breasts Breasts: deferred - Cardiovascular Rhythm: regular Heart Sounds: Present: S1 & S2. Absent: gallop, rub Extremities: pulses intact, No edema, normal color, Full ROM - Gastrointestinal General gastrointestinal: Present: soft, non-tender, non-distended, normal bowel sounds Rectal Exam: deferred - Genitourinary Female genitourinary: deferred - Integumentary Integumentary: clear, warm, dry - Musculoskeletal Musculoskeletal: 1, strength equal bilaterally - Neurologic Neurologic: moves all extremities - Psychiatric Psychiatric: appropriate mood/affect - Labs CBC & Chem 7: 09/18/17 05:10 09/18/17 05:10 Labs: Abnormal lab results 09/17/17 09/18/17 09/18/17 Range/Units 17:12 00:08 05:10 WBC 24.4 H (4.5-11.0) K/mm3 RBC 2.57 L (3.65-5.03) M/mm3 Hgb 7.8 L (10.1-14.3) gm/dl Hct 23.2 L (30.3-42.9) % RDW 19.5 H (13.2-15.2) % Seg Neuts % (Manual) 78.0 H (40.0-70.0) % Lymphocytes % (Manual) 6.0 L (13.4-35.0) % Nucleated RBC % 2.0 H (0.0-0.9) % Seg Neutrophils # Man 19.0 H (1.8-7.7) K/mm3 BUN (7-17) mg/dL Creatinine (0.7-1.2) mg/dL Glucose (65-100) mg/dL POC Glucose 309 H 275 H (70-105) 09/18/17 09/18/17 09/18/17 Range/Units 05:10 05:23 13:59 WBC (4.5-11.0) K/mm3 RBC (3.65-5.03) M/mm3 Hgb (10.1-14.3) gm/dl Hct (30.3-42.9) % RDW (13.2-15.2) % Seg Neuts % (Manual) (40.0-70.0) % Lymphocytes % (Manual) (13.4-35.0) % Nucleated RBC % (0.0-0.9) % Seg Neutrophils # Man (1.8-7.7) K/mm3 BUN 103 H (7-17) mg/dL Creatinine 2.8 H (0.7-1.2) mg/dL Glucose 173 H (65-100) mg/dL POC Glucose 224 H 268 H (70-105)
--- NOTE | 2017-09-18 22:15 | Progress Note ---
Assessment and Plan 62 y.o. F s/p ex lap, transverse colon resection, colostomy creation, and s/p ex lap, abdominal wash out and abdominal wall closure after wound dehiscence 2 weeks s/p ex lap for gastric perforation and sbo. s/p transverse colon resection with ostomy resection for perforated colon: ostomy patent. Wound care nurse consulted for colostomy care. Monitor MERVIN output - becoming more serous sanginous. Continue G tube to gravity. Outputs to be recorded on paper in room for accurate outputs. -once ostomy has air and G tube output low, will rec tube feeds to be restarted. Will check ostomy tomorrow and advise tomorrow. Pt requiring levo. Vaso off. s/p Antonieta placement -Leukocytosis improving - ID following - merrem, mycamin, cubicin -Rec. wean steriods Heme- rec heme consult has pt may have a coagulate that is not apparent with INR /PT or PTT changes. 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 VDRF: s/p trach. Prev Gastric perf: Sealed. In light of recent surgery, keep G tube to gravity CKD- HD per renal Nutrition: TPN at 77,. DVT proph: scds GI: PPI. - Patient Problems (1) Peritonitis (acute) generalized Current Visit: Yes Status: Acute Subjective Narrative: No acute events overnight. Pt awake, but does not respond to command. Afebrile G tube 300 bilous NG mimimal MERVIN: 190~ sserosang ostomy 10cc no air Objective Vital Signs - 12hr 09/18/17 09/18/17 09/18/17 10:15 10:30 10:46 Temperature Pulse Rate 98 H 68 82 Pulse Rate [ Anterior Bilateral Throughout] Respiratory 16 17 18 Rate Respiratory Rate [Anterior Bilateral Throughout] Blood Pressure 117/59 123/79 93/56 O2 Sat by Pulse 98 98 97 Oximetry O2 Sat by Pulse Oximetry [ Assessment] 09/18/17 09/18/17 09/18/17 11:00 11:16 11:30 Temperature Pulse Rate 81 85 77 Pulse Rate [ Anterior Bilateral Throughout] Respiratory 20 19 20 Rate Respiratory Rate [Anterior Bilateral Throughout] Blood Pressure 102/61 108/51 106/47 O2 Sat by Pulse 94 100 100 Oximetry O2 Sat by Pulse Oximetry [ Assessment] 09/18/17 09/18/17 09/18/17 11:45 12:00 12:16 Temperature 98.8 F Pulse Rate 92 H 109 H 101 H Pulse Rate [ Anterior Bilateral Throughout] Respiratory 18 20 16 Rate Respiratory Rate [Anterior Bilateral Throughout] Blood Pressure 115/52 114/78 106/65 O2 Sat by Pulse 100 95 94 Oximetry O2 Sat by Pulse Oximetry [ Assessment] 09/18/17 09/18/17 09/18/17 12:30 12:46 13:00 Temperature Pulse Rate 100 H 110 H 90 Pulse Rate [ Anterior Bilateral Throughout] Respiratory 17 20 18 Rate Respiratory Rate [Anterior Bilateral Throughout] Blood Pressure 112/68 112/61 114/50 O2 Sat by Pulse 96 99 100 Oximetry O2 Sat by Pulse Oximetry [ Assessment] 09/18/17 09/18/17 09/18/17 13:15 13:30 13:45 Temperature Pulse Rate 96 H 84 92 H Pulse Rate [ Anterior Bilateral Throughout] Respiratory 17 19 17 Rate Respiratory Rate [Anterior Bilateral Throughout] Blood Pressure 112/51 109/48 115/53 O2 Sat by Pulse 100 100 100 Oximetry O2 Sat by Pulse Oximetry [ Assessment] 09/18/17 09/18/17 09/18/17 14:00 14:15 14:30 Temperature Pulse Rate 94 H 91 H 87 Pulse Rate [ Anterior Bilateral Throughout] Respiratory 15 18 18 Rate Respiratory Rate [Anterior Bilateral Throughout] Blood Pressure 113/50 115/52 115/52 O2 Sat by Pulse 100 100 93 Oximetry O2 Sat by Pulse Oximetry [ Assessment] 09/18/17 09/18/17 09/18/17 14:46 15:00 15:16 Temperature Pulse Rate 103 H 110 H 92 H Pulse Rate [ Anterior Bilateral Throughout] Respiratory 22 17 19 Rate Respiratory Rate [Anterior Bilateral Throughout] Blood Pressure 76/36 118/50 141/59 O2 Sat by Pulse 100 100 100 Oximetry O2 Sat by Pulse Oximetry [ Assessment] 09/18/17 09/18/17 09/18/17 15:30 15:45 16:00 Temperature 99.1 F Pulse Rate 104 H 99 H 108 H Pulse Rate [ Anterior Bilateral Throughout] Respiratory 16 21 13 Rate Respiratory Rate [Anterior Bilateral Throughout] Blood Pressure 150/50 150/50 108/48 O2 Sat by Pulse 100 100 100 Oximetry O2 Sat by Pulse Oximetry [ Assessment] 09/18/17 09/18/17 09/18/17 16:15 16:30 16:35 Temperature Pulse Rate 105 H 90 Pulse Rate [ 88 Anterior Bilateral Throughout] Respiratory 15 14 Rate Respiratory 20 Rate [Anterior Bilateral Throughout] Blood Pressure 86/52 81/42 O2 Sat by Pulse 97 Oximetry O2 Sat by Pulse Oximetry [ Assessment] 09/18/17 09/18/17 09/18/17 16:36 16:39 16:45 Temperature Pulse Rate 90 97 H Pulse Rate [ Anterior Bilateral Throughout] Respiratory 20 Rate Respiratory Rate [Anterior Bilateral Throughout] Blood Pressure 81/42 86/52 O2 Sat by Pulse 92 94 Oximetry O2 Sat by Pulse 99 Oximetry [ Assessment] 09/18/17 09/18/17 09/18/17 16:55 17:00 17:01 Temperature 98.8 F Pulse Rate 100 H Pulse Rate [ 92 H Anterior Bilateral Throughout] Respiratory 16 Rate Respiratory 22 Rate [Anterior Bilateral Throughout] Blood Pressure 109/48 109/48 O2 Sat by Pulse 94 Oximetry O2 Sat by Pulse Oximetry [ Assessment] 09/18/17 09/18/17 09/18/17 17:05 17:15 17:30 Temperature Pulse Rate 100 H 106 H 108 H Pulse Rate [ Anterior Bilateral Throughout] Respiratory 17 Rate Respiratory Rate [Anterior Bilateral Throughout] Blood Pressure 109/48 132/49 86/56 O2 Sat by Pulse Oximetry O2 Sat by Pulse Oximetry [ Assessment] 09/18/17 09/18/17 09/18/17 17:45 18:00 18:01 Temperature Pulse Rate 113 H 110 H 111 H Pulse Rate [ Anterior Bilateral Throughout] Respiratory 17 14 Rate Respiratory Rate [Anterior Bilateral Throughout] Blood Pressure 92/56 86/55 86/55 O2 Sat by Pulse Oximetry O2 Sat by Pulse Oximetry [ Assessment] 09/18/17 09/18/17 09/18/17 18:15 18:30 18:45 Temperature Pulse Rate 103 H 99 H 100 H Pulse Rate [ Anterior Bilateral Throughout] Respiratory 15 17 17 Rate Respiratory Rate [Anterior Bilateral Throughout] Blood Pressure 85/49 104/59 100/50 O2 Sat by Pulse Oximetry O2 Sat by Pulse Oximetry [ Assessment] 09/18/17 09/18/17 09/18/17 19:00 19:17 19:32 Temperature Pulse Rate 98 H 100 H 100 H Pulse Rate [ Anterior Bilateral Throughout] Respiratory 15 Rate Respiratory Rate [Anterior Bilateral Throughout] Blood Pressure 103/58 98/58 99/61 O2 Sat by Pulse Oximetry O2 Sat by Pulse Oximetry [ Assessment] 09/18/17 09/18/17 09/18/17 19:45 20:00 20:01 Temperature 99.0 F Pulse Rate 105 H 111 H Pulse Rate [ Anterior Bilateral Throughout] Respiratory Rate Respiratory Rate [Anterior Bilateral Throughout] Blood Pressure 106/47 93/55 O2 Sat by Pulse Oximetry O2 Sat by Pulse Oximetry [ Assessment] 09/18/17 09/18/17 09/18/17 20:15 20:23 20:38 Temperature 98.8 F Pulse Rate 99 H 100 H 90 Pulse Rate [ Anterior Bilateral Throughout] Respiratory 25 H Rate Respiratory Rate [Anterior Bilateral Throughout] Blood Pressure 104/45 104/45 111/48 O2 Sat by Pulse Oximetry O2 Sat by Pulse Oximetry [ Assessment] 09/18/17 20:47 Temperature Pulse Rate Pulse Rate [ 100 H Anterior Bilateral Throughout] Respiratory Rate Respiratory 18 Rate [Anterior Bilateral Throughout] Blood Pressure O2 Sat by Pulse Oximetry O2 Sat by Pulse Oximetry [ Assessment] - Neck other (trach in place no bleeding ) - Respiratory normal expansion, normal respiratory effort, other (vent) - Abdomen soft, other (midline dressing removed: leaking of ostomy into midline wound. wound irrigated and repacked with kerlex. covered with tape. ostomy: stoma dusky but patent. drk blood mixed with stool. no air. ostomy medial aspect patched to prevent leaking. MERVIN in place. prev pd cath site clean. 2cm L. ) - Integumentary no rash, other (weeping ) - Neurologic confused - Labs 09/18/17 05:10 09/18/17 05:10 Diabetes panel 09/18/17 Range/Units 05:10 Sodium 141 (137-145) mmol/L Potassium 4.3 (3.6-5.0) mmol/L Chloride 101.4 (98-107) mmol/L Carbon Dioxide 22 (22-30) mmol/L BUN 103 H (7-17) mg/dL Creatinine 2.8 H (0.7-1.2) mg/dL Glucose 173 H (65-100) mg/dL Calcium 8.9 (8.4-10.2) mg/dL Calcium panel 09/18/17 Range/Units 05:10 Calcium 8.9 (8.4-10.2) mg/dL Pituitary panel 09/18/17 Range/Units 05:10 Sodium 141 (137-145) mmol/L Potassium 4.3 (3.6-5.0) mmol/L Chloride 101.4 (98-107) mmol/L Carbon Dioxide 22 (22-30) mmol/L BUN 103 H (7-17) mg/dL Creatinine 2.8 H (0.7-1.2) mg/dL Glucose 173 H (65-100) mg/dL Calcium 8.9 (8.4-10.2) mg/dL Adrenal panel 09/18/17 Range/Units 05:10 Sodium 141 (137-145) mmol/L Potassium 4.3 (3.6-5.0) mmol/L Chloride 101.4 (98-107) mmol/L Carbon Dioxide 22 (22-30) mmol/L BUN 103 H (7-17) mg/dL Creatinine 2.8 H (0.7-1.2) mg/dL Glucose 173 H (65-100) mg/dL Calcium 8.9 (8.4-10.2) mg/dL
[2017-09-19] MEDS: NOVOLOG SUB-Q SCH ×4 (00:14→17:42)
[2017-09-19] MEDS: LEVOPHED 8 MG in NACL 0.9% 250ML 242 ML IV SCH (00:31)
[2017-09-19] MEDS: DUONEB *Not for PRN Use IH SCH ×2 (02:03→08:50)
[2017-09-19 07:23] LABS: Hematocrit 23.2 % (30.3-42.9); Hemoglobin 7.9 gm/dl (10.1-14.3); Mean Corpuscular HGB Conc 34 % (30-34); Mean Corpuscular Hemoglobin 31 pg (28-32); Mean Corpuscular Volume 90 fl (79-97); Platelet Count 324 K/mm3 (140-440); Red Blood Count 2.57 M/mm3 (3.65-5.03); White Blood Count 17.6 K/mm3 (4.5-11.0)
[2017-09-19 08:12] LABS: Basophils % (Manual) 0 % (0.0-1.8); Blastocytes % (Manual) 0 %; Eosinophils % (Manual) 0 % (0.0-4.3)
[2017-09-19 08:13] LABS: Anisocytosis 1+; Giant Platelets Few; Large Platelets Rare; Polychromasia 1+; Target Cells Rare; Tear Drop Cells Rare
[2017-09-19 08:14] LABS: Diff Status Complete
[2017-09-19] MEDS ORDERED: NACL 0.9% 100 ML IV PRN (08:18)
--- NOTE | 2017-09-19 08:18 | Progress Note ---
Assessment and Plan - Patient Problems (1) ESRD (end stage renal disease) on dialysis Current Visit: Yes Status: Acute Plan to address problem: Continue HD on MWF and Isolated UF on TTS as tolerated. UF today. Mostly patient is tolerating fluid removal with hemodialysis. Patient is on TPN. (2) Hyperkalemia Current Visit: Yes Status: Acute Plan to address problem: Hemodialysis with 2K bath. (3) Anemia Current Visit: No Status: Chronic Qualifiers: Anemia type: due to chronic kidney disease Iron deficiency anemia type: I Vitamin B12 deficiency anemia type: V Folate deficiency anemia type: F Bone marrow failure anemia type: B Hemolytic anemia type: H Other causes of anemia: O Chronic kidney disease stage: on chronic dialysis Qualified Code(s ): N18.6 - End stage renal disease; D63.1 - Anemia in chronic kidney disease; Z99.2 - Dependence on renal dialysis Plan to address problem: S/p multiple units of PRBC. Epogen on dialysis days. (4) Hypotension Current Visit: Yes Status: Chronic Qualifiers: Hypotension type: H Trimester: T Plan to address problem: On Levophed. (5) Volume overload Current Visit: Yes Status: Acute Qualifiers: Hypervolemia type: H Plan to address problem: UF as tolerated. (6) Leukocytosis Current Visit: Yes Status: Acute Qualifiers: Leukocytosis type: unspecified Qualified Code(s): D72.829 - Elevated white blood cell count, unspecified (7) Acute respiratory failure with hypoxemia Current Visit: Yes Status: Acute Plan to address problem: On the vent. (8) Sepsis Current Visit: Yes Status: Acute Qualifiers: Sepsis type: S Subjective Date of service: 09/19/17 Principal diagnosis: respiratory failure, sepsis, shock rectal bleeding Interval history: Patient was seen and examined at the bedside. Remain on the vent. Objective - Vital Signs Vital signs: Vital Signs - 12hr 09/18/17 09/18/17 09/18/17 20:23 20:31 20:38 Temperature 98.8 F Pulse Rate 100 H 101 H 90 Pulse Rate [ Anterior Bilateral Throughout] Respiratory 16 25 H Rate Respiratory Rate [Anterior Bilateral Throughout] Blood Pressure 104/45 111/48 111/48 O2 Sat by Pulse Oximetry 09/18/17 09/18/17 09/18/17 20:45 20:47 20:55 Temperature Pulse Rate 109 H Pulse Rate [ 100 H 105 H Anterior Bilateral Throughout] Respiratory 19 Rate Respiratory 18 18 Rate [Anterior Bilateral Throughout] Blood Pressure 106/52 O2 Sat by Pulse Oximetry 09/18/17 09/18/17 09/18/17 21:00 21:15 21:30 Temperature Pulse Rate 99 H 95 H 101 H Pulse Rate [ Anterior Bilateral Throughout] Respiratory 15 12 15 Rate Respiratory Rate [Anterior Bilateral Throughout] Blood Pressure 117/60 118/87 115/94 O2 Sat by Pulse Oximetry 09/18/17 09/18/17 09/18/17 21:45 22:00 22:17 Temperature Pulse Rate 105 H 102 H 100 H Pulse Rate [ Anterior Bilateral Throughout] Respiratory 13 13 14 Rate Respiratory Rate [Anterior Bilateral Throughout] Blood Pressure 118/87 135/95 114/52 O2 Sat by Pulse Oximetry 09/18/17 09/18/17 09/18/17 22:30 22:45 23:00 Temperature Pulse Rate 94 H 87 96 H Pulse Rate [ Anterior Bilateral Throughout] Respiratory 11 L 15 16 Rate Respiratory Rate [Anterior Bilateral Throughout] Blood Pressure 122/60 122/53 113/62 O2 Sat by Pulse Oximetry 09/18/17 09/18/17 09/18/17 23:15 23:30 23:45 Temperature Pulse Rate 91 H 96 H 103 H Pulse Rate [ Anterior Bilateral Throughout] Respiratory 16 13 13 Rate Respiratory Rate [Anterior Bilateral Throughout] Blood Pressure 110/66 125/54 122/56 O2 Sat by Pulse Oximetry 09/19/17 09/19/17 09/19/17 00:00 00:15 00:31 Temperature 99.8 F H Pulse Rate 98 H 107 H 97 H Pulse Rate [ Anterior Bilateral Throughout] Respiratory 13 18 19 Rate Respiratory Rate [Anterior Bilateral Throughout] Blood Pressure 126/51 143/47 143/47 O2 Sat by Pulse 100 100 Oximetry 09/19/17 09/19/17 09/19/17 00:45 01:01 01:15 Temperature Pulse Rate 94 H 101 H 93 H Pulse Rate [ Anterior Bilateral Throughout] Respiratory 16 17 15 Rate Respiratory Rate [Anterior Bilateral Throughout] Blood Pressure 132/51 121/61 109/52 O2 Sat by Pulse 100 100 Oximetry 09/19/17 09/19/17 09/19/17 01:31 01:45 02:01 Temperature Pulse Rate 96 H 103 H 93 H Pulse Rate [ Anterior Bilateral Throughout] Respiratory 18 15 15 Rate Respiratory Rate [Anterior Bilateral Throughout] Blood Pressure 98/62 116/82 131/86 O2 Sat by Pulse 100 100 100 Oximetry 09/19/17 09/19/17 09/19/17 02:04 02:15 02:22 Temperature Pulse Rate 96 H Pulse Rate [ 112 H 92 H Anterior Bilateral Throughout] Respiratory 17 Rate Respiratory 18 22 Rate [Anterior Bilateral Throughout] Blood Pressure 134/60 O2 Sat by Pulse 100 Oximetry 09/19/17 09/19/17 09/19/17 02:30 02:45 03:01 Temperature Pulse Rate 94 H 106 H 99 H Pulse Rate [ Anterior Bilateral Throughout] Respiratory 15 17 19 Rate Respiratory Rate [Anterior Bilateral Throughout] Blood Pressure 135/55 138/58 130/51 O2 Sat by Pulse 100 100 100 Oximetry 09/19/17 09/19/17 09/19/17 03:15 03:31 03:45 Temperature Pulse Rate 95 H 88 98 H Pulse Rate [ Anterior Bilateral Throughout] Respiratory 13 14 14 Rate Respiratory Rate [Anterior Bilateral Throughout] Blood Pressure 147/58 131/53 141/60 O2 Sat by Pulse 100 100 100 Oximetry 09/19/17 09/19/17 09/19/17 04:00 04:01 04:15 Temperature 99.0 F Pulse Rate 89 Pulse Rate [ Anterior Bilateral Throughout] Respiratory 13 Rate Respiratory Rate [Anterior Bilateral Throughout] Blood Pressure 136/57 135/61 O2 Sat by Pulse 100 100 100 Oximetry 09/19/17 09/19/17 09/19/17 04:31 04:45 05:00 Temperature Pulse Rate 100 H 108 H 90 Pulse Rate [ Anterior Bilateral Throughout] Respiratory 12 18 13 Rate Respiratory Rate [Anterior Bilateral Throughout] Blood Pressure 122/56 122/56 137/59 O2 Sat by Pulse 100 100 100 Oximetry 09/19/17 09/19/17 09/19/17 05:15 05:30 05:45 Temperature Pulse Rate 102 H 93 H 93 H Pulse Rate [ Anterior Bilateral Throughout] Respiratory 16 14 16 Rate Respiratory Rate [Anterior Bilateral Throughout] Blood Pressure 128/60 130/55 143/55 O2 Sat by Pulse 100 100 100 Oximetry 09/19/17 09/19/17 06:01 07:57 Temperature 98.5 F Pulse Rate 100 H Pulse Rate [ Anterior Bilateral Throughout] Respiratory 15 Rate Respiratory Rate [Anterior Bilateral Throughout] Blood Pressure 123/58 O2 Sat by Pulse 100 Oximetry - General Appearance General appearance: well-developed, appears stated age, obese, other (on the vent, FiO2 40%) EENT: ATNC, PERRL Neck: other (Trached) Respiratory: Present: Clear to Ascultation Cardiology: regular, S1S2, no murmurs Gastrointestinal: normoactive bowel sounds, obese, other (ostomy, MERVIN drain and dressing noted) Integumentary: no rash Neurologic: other (opens eyes, grimaces) Musculoskeletal: other (2+ edema of both LEs noted) - Lab 09/19/17 06:00 09/18/17 05:10 Most recent lab results ABG pH 7.323 pH Units (7.350-7.450) L 09/09/17 Unknown ABG pCO2 41.1 mm Hg 09/09/17 Unknown ABG pO2 94.1 mm Hg (80.0-90.0) H 09/09/17 Unknown ABG HCO3 20.9 mmol/L (20.0-26.0) 09/09/17 Unknown ABG O2 Saturation 97.2 % (95.0-99.0) 09/09/17 Unknown Calcium 8.9 mg/dL (8.4-10.2) 09/18/17 05:10 Phosphorus 3.40 mg/dL (2.5-4.5) D 09/17/17 06:10 Magnesium 1.70 mg/dL (1.7-2.3) 09/16/17 05:30
--- NOTE | 2017-09-19 09:09 | Progress Note ---
Assessment and Plan 62 y.o. F s/p ex lap, transverse colon resection, colostomy creation, and s/p ex lap, abdominal wash out and abdominal wall closure after wound dehiscence 2 weeks s/p ex lap for gastric perforation and sbo. s/p transverse colon resection with ostomy resection for perforated colon: ostomy patent. Wound care nurse consulted for colostomy care.No further leaking at colostomy site into wound. Monitor for air in bag Monitor MERVIN output- becoming more serous sanginous. High output but likely abd washing from surgery mixed with ascites causing high output. Continue G tube to gravity. Outputs to be recorded on paper in room for accurate outputs. -once ostomy has air and G tube output low, will rec tube feeds to be restarted. Pt requiring levo. . s/p [place] placement -Leukocytosis improving - ID following - merrem, mycamin, cubicin -Rec. wean steriods Heme- rec heme consult has pt may have a coagulate that is not apparent with INR /PT or PTT changes. 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 VDRF: s/p trach. Prev Gastric perf: Sealed. In light of recent surgery, keep G tube to gravity CKD- HD per renal Nutrition: TPN at 77,. DVT proph: scds GI: PPI. - Patient Problems (1) Peritonitis (acute) generalized Current Visit: Yes Status: Acute Subjective Narrative: Pt resting in bed. HD yesterday with 1 L removed. Levo currently at 4. Afebrile. Pt responds to her name. she is awake and alert. Does not follow commands. MERVIN: 540cc serosang/cloudy G 300cc billious ostomy - NG - Objective Vital Signs - 12hr 09/18/17 09/18/17 09/18/17 21:15 21:30 21:45 Temperature Pulse Rate 95 H 101 H 105 H Pulse Rate [ Anterior Bilateral Throughout] Respiratory 12 15 13 Rate Respiratory Rate [Anterior Bilateral Throughout] Blood Pressure 118/87 115/94 118/87 O2 Sat by Pulse Oximetry 09/18/17 09/18/17 09/18/17 22:00 22:17 22:30 Temperature Pulse Rate 102 H 100 H 94 H Pulse Rate [ Anterior Bilateral Throughout] Respiratory 13 14 11 L Rate Respiratory Rate [Anterior Bilateral Throughout] Blood Pressure 135/95 114/52 122/60 O2 Sat by Pulse Oximetry 09/18/17 09/18/17 09/18/17 22:45 23:00 23:15 Temperature Pulse Rate 87 96 H 91 H Pulse Rate [ Anterior Bilateral Throughout] Respiratory 15 16 16 Rate Respiratory Rate [Anterior Bilateral Throughout] Blood Pressure 122/53 113/62 110/66 O2 Sat by Pulse Oximetry 09/18/17 09/18/17 09/19/17 23:30 23:45 00:00 Temperature 99.8 F H Pulse Rate 96 H 103 H 98 H Pulse Rate [ Anterior Bilateral Throughout] Respiratory 13 13 13 Rate Respiratory Rate [Anterior Bilateral Throughout] Blood Pressure 125/54 122/56 126/51 O2 Sat by Pulse 100 Oximetry 09/19/17 09/19/17 09/19/17 00:15 00:31 00:45 Temperature Pulse Rate 107 H 97 H 94 H Pulse Rate [ Anterior Bilateral Throughout] Respiratory 18 19 16 Rate Respiratory Rate [Anterior Bilateral Throughout] Blood Pressure 143/47 143/47 132/51 O2 Sat by Pulse 100 100 Oximetry 09/19/17 09/19/17 09/19/17 01:01 01:15 01:31 Temperature Pulse Rate 101 H 93 H 96 H Pulse Rate [ Anterior Bilateral Throughout] Respiratory 17 15 18 Rate Respiratory Rate [Anterior Bilateral Throughout] Blood Pressure 121/61 109/52 98/62 O2 Sat by Pulse 100 100 Oximetry 09/19/17 09/19/17 09/19/17 01:45 02:01 02:04 Temperature Pulse Rate 103 H 93 H Pulse Rate [ 112 H Anterior Bilateral Throughout] Respiratory 15 15 Rate Respiratory 18 Rate [Anterior Bilateral Throughout] Blood Pressure 116/82 131/86 O2 Sat by Pulse 100 100 Oximetry 09/19/17 09/19/17 09/19/17 02:15 02:22 02:30 Temperature Pulse Rate 96 H 94 H Pulse Rate [ 92 H Anterior Bilateral Throughout] Respiratory 17 15 Rate Respiratory 22 Rate [Anterior Bilateral Throughout] Blood Pressure 134/60 135/55 O2 Sat by Pulse 100 100 Oximetry 09/19/17 09/19/17 09/19/17 02:45 03:01 03:15 Temperature Pulse Rate 106 H 99 H 95 H Pulse Rate [ Anterior Bilateral Throughout] Respiratory 17 19 13 Rate Respiratory Rate [Anterior Bilateral Throughout] Blood Pressure 138/58 130/51 147/58 O2 Sat by Pulse 100 100 100 Oximetry 09/19/17 09/19/1717 03:31 03:45 04:00 Temperature 99.0 F Pulse Rate 88 98 H Pulse Rate [ Anterior Bilateral Throughout] Respiratory 14 14 Rate Respiratory Rate [Anterior Bilateral Throughout] Blood Pressure 131/53 141/60 O2 Sat by Pulse 100 100 100 Oximetry 09/19/17 09/19/17 09/19/17 04:01 04:15 04:31 Temperature Pulse Rate 89 100 H Pulse Rate [ Anterior Bilateral Throughout] Respiratory 13 12 Rate Respiratory Rate [Anterior Bilateral Throughout] Blood Pressure 136/57 135/61 122/56 O2 Sat by Pulse 100 100 100 Oximetry 09/19/17 09/19/17 09/19/17 04:45 05:00 05:15 Temperature Pulse Rate 108 H 90 102 H Pulse Rate [ Anterior Bilateral Throughout] Respiratory 18 13 16 Rate Respiratory Rate [Anterior Bilateral Throughout] Blood Pressure 122/56 137/59 128/60 O2 Sat by Pulse 100 100 100 Oximetry 09/19/17 09/19/17 09/19/17 05:30 05:45 06:01 Temperature Pulse Rate 93 H 93 H 100 H Pulse Rate [ Anterior Bilateral Throughout] Respiratory 14 16 15 Rate Respiratory Rate [Anterior Bilateral Throughout] Blood Pressure 130/55 143/55 123/58 O2 Sat by Pulse 100 100 100 Oximetry 09/19/17 09/19/17 09/19/17 06:15 06:30 06:45 Temperature Pulse Rate 99 H 105 H 113 H Pulse Rate [ Anterior Bilateral Throughout] Respiratory 14 17 18 Rate Respiratory Rate [Anterior Bilateral Throughout] Blood Pressure 123/58 144/68 144/68 O2 Sat by Pulse 100 100 100 Oximetry 09/19/17 09/19/17 09/19/17 07:01 07:15 07:31 Temperature Pulse Rate 99 H 109 H 103 H Pulse Rate [ Anterior Bilateral Throughout] Respiratory 17 14 13 Rate Respiratory Rate [Anterior Bilateral Throughout] Blood Pressure 114/44 132/66 122/45 O2 Sat by Pulse 100 100 100 Oximetry 09/19/17 09/19/17 09/19/17 07:45 07:57 08:00 Temperature 98.5 F Pulse Rate 103 H Pulse Rate [ Anterior Bilateral Throughout] Respiratory 15 Rate Respiratory Rate [Anterior Bilateral Throughout] Blood Pressure 122/45 O2 Sat by Pulse 100 100 Oximetry 09/19/17 09/19/17 09/19/17 08:01 08:15 08:30 Temperature Pulse Rate 97 H 104 H 104 H Pulse Rate [ Anterior Bilateral Throughout] Respiratory 15 14 17 Rate Respiratory Rate [Anterior Bilateral Throughout] Blood Pressure 96/42 115/48 110/43 O2 Sat by Pulse 100 100 Oximetry 09/19/17 08:45 Temperature Pulse Rate 101 H Pulse Rate [ Anterior Bilateral Throughout] Respiratory 17 Rate Respiratory Rate [Anterior Bilateral Throughout] Blood Pressure 109/90 O2 Sat by Pulse 100 Oximetry - General physical appearance no distress, chronically ill, obese - Neck other (trach midline no bleeding ) - Respiratory normal expansion, normal respiratory effort, other (vent) - Abdomen soft, other (dressing removed. calcium alginate in midline- removed pieces that were saturated with serosang discharge. no fould smell. fascia intact. calcium alg. replaced and covered. MERVIN and G tube in place. colostomy: violacious stoma, patent, edema. no air in bag. minimal liquid stool and drk blood mixed in bag. no leakage into wound) - Integumentary no rash - Psychiatric other (awake) - Labs 09/19/17 06:00 09/18/17 05:10
--- NOTE | 2017-09-19 09:33 | Progress Note ---
Assessment and Plan 62 y/o female originally admitted with hypotension, now back to ICU secondary to worsening hypotension, concern for sepsis, with acute respiratory failure post-op from ex-lap for abdominal distention and possible ileus, now back from OR after worsening respiratory failure, requiring re-intubation and wash out of abdomen 1. Follow up cultures, currently on broad spectrum abx by ID 2. HD per renal, has been having at least 6x weekly. 3. Continue PSV trials as tolerated. Rest on rate while on HD. Tolerated yesterday being on HD and PSV, will continue as tolerated 4. Recent Perf of colon with washout. Surgery continues to follow. 5. Wean Vasopressors for MAPS greater than 60-65. Unable to use abdomen at this time. Levophed at 4 6. Steroids restarted last week, will start to wean again as surgery is concerned that steroids led to perf. Down to 50q8, will drop again to 25q8 tomorrow 7. Patient continues to require occasional transfusions. Not a candidate for endoscopy at this time. Transfuse for HgB less than 7 Overall prognosis is guarded to poor CCT 31 Subjective Date of service: 09/19/17 Principal diagnosis: respiratory failure, sepsis, shock rectal bleeding Interval history: no acute events. HD on yesterday and likely again today. Tolerated PSV all day. Family at bedside. Surgery performing wound inspection and dressing changes. Objective Vital Signs - 12hr 09/18/17 09/18/17 09/18/17 21:45 22:00 22:17 Temperature Pulse Rate 105 H 102 H 100 H Pulse Rate [ Anterior Bilateral Throughout] Respiratory 13 13 14 Rate Respiratory Rate [Anterior Bilateral Throughout] Blood Pressure 118/87 135/95 114/52 O2 Sat by Pulse Oximetry 09/18/17 09/18/17 09/18/17 22:30 22:45 23:00 Temperature Pulse Rate 94 H 87 96 H Pulse Rate [ Anterior Bilateral Throughout] Respiratory 11 L 15 16 Rate Respiratory Rate [Anterior Bilateral Throughout] Blood Pressure 122/60 122/53 113/62 O2 Sat by Pulse Oximetry 09/18/17 09/18/17 09/18/17 23:15 23:30 23:45 Temperature Pulse Rate 91 H 96 H 103 H Pulse Rate [ Anterior Bilateral Throughout] Respiratory 16 13 13 Rate Respiratory Rate [Anterior Bilateral Throughout] Blood Pressure 110/66 125/54 122/56 O2 Sat by Pulse Oximetry 09/19/17 09/19/17 09/19/17 00:00 00:15 00:31 Temperature 99.8 F H Pulse Rate 98 H 107 H 97 H Pulse Rate [ Anterior Bilateral Throughout] Respiratory 13 18 19 Rate Respiratory Rate [Anterior Bilateral Throughout] Blood Pressure 126/51 143/47 143/47 O2 Sat by Pulse 100 100 Oximetry 09/19/17 09/19/17 09/19/17 00:45 01:01 01:15 Temperature Pulse Rate 94 H 101 H 93 H Pulse Rate [ Anterior Bilateral Throughout] Respiratory 16 17 15 Rate Respiratory Rate [Anterior Bilateral Throughout] Blood Pressure 132/51 121/61 109/52 O2 Sat by Pulse 100 100 Oximetry 09/19/17 09/19/17 09/19/17 01:31 01:45 02:01 Temperature Pulse Rate 96 H 103 H 93 H Pulse Rate [ Anterior Bilateral Throughout] Respiratory 18 15 15 Rate Respiratory Rate [Anterior Bilateral Throughout] Blood Pressure 98/62 116/82 131/86 O2 Sat by Pulse 100 100 100 Oximetry 09/19/17 09/19/17 09/19/17 02:04 02:15 02:22 Temperature Pulse Rate 96 H Pulse Rate [ 112 H 92 H Anterior Bilateral Throughout] Respiratory 17 Rate Respiratory 18 22 Rate [Anterior Bilateral Throughout] Blood Pressure 134/60 O2 Sat by Pulse 100 Oximetry 09/19/17 09/19/17 09/19/17 02:30 02:45 03:01 Temperature Pulse Rate 94 H 106 H 99 H Pulse Rate [ Anterior Bilateral Throughout] Respiratory 15 17 19 Rate Respiratory Rate [Anterior Bilateral Throughout] Blood Pressure 135/55 138/58 130/51 O2 Sat by Pulse 100 100 100 Oximetry 09/19/17 09/19/17 09/19/17 03:15 03:31 03:45 Temperature Pulse Rate 95 H 88 98 H Pulse Rate [ Anterior Bilateral Throughout] Respiratory 13 14 14 Rate Respiratory Rate [Anterior Bilateral Throughout] Blood Pressure 147/58 131/53 141/60 O2 Sat by Pulse 100 100 100 Oximetry 09/19/17 09/19/17 09/19/17 04:00 04:01 04:15 Temperature 99.0 F Pulse Rate 89 Pulse Rate [ Anterior Bilateral Throughout] Respiratory 13 Rate Respiratory Rate [Anterior Bilateral Throughout] Blood Pressure 136/57 135/61 O2 Sat by Pulse 100 100 100 Oximetry 09/19/17 09/19/17 09/19/17 04:31 04:45 05:00 Temperature Pulse Rate 100 H 108 H 90 Pulse Rate [ Anterior Bilateral Throughout] Respiratory 12 18 13 Rate Respiratory Rate [Anterior Bilateral Throughout] Blood Pressure 122/56 122/56 137/59 O2 Sat by Pulse 100 100 100 Oximetry 09/19/17 09/19/17 09/19/17 05:15 05:30 05:45 Temperature Pulse Rate 102 H 93 H 93 H Pulse Rate [ Anterior Bilateral Throughout] Respiratory 16 14 16 Rate Respiratory Rate [Anterior Bilateral Throughout] Blood Pressure 128/60 130/55 143/55 O2 Sat by Pulse 100 100 100 Oximetry 09/19/17 09/19/17 09/19/17 06:01 06:15 06:30 Temperature Pulse Rate 100 H 99 H 105 H Pulse Rate [ Anterior Bilateral Throughout] Respiratory 15 14 17 Rate Respiratory Rate [Anterior Bilateral Throughout] Blood Pressure 123/58 123/58 144/68 O2 Sat by Pulse 100 100 100 Oximetry 09/19/17 09/19/17 09/19/17 06:45 07:01 07:15 Temperature Pulse Rate 113 H 99 H 109 H Pulse Rate [ Anterior Bilateral Throughout] Respiratory 18 17 14 Rate Respiratory Rate [Anterior Bilateral Throughout] Blood Pressure 144/68 114/44 132/66 O2 Sat by Pulse 100 100 100 Oximetry 09/19/17 09/19/17 09/19/17 07:31 07:45 07:57 Temperature 98.5 F Pulse Rate 103 H 103 H Pulse Rate [ Anterior Bilateral Throughout] Respiratory 13 15 Rate Respiratory Rate [Anterior Bilateral Throughout] Blood Pressure 122/45 122/45 O2 Sat by Pulse 100 100 Oximetry 09/19/17 09/19/17 09/19/17 08:00 08:01 08:15 Temperature Pulse Rate 97 H 104 H Pulse Rate [ Anterior Bilateral Throughout] Respiratory 15 14 Rate Respiratory Rate [Anterior Bilateral Throughout] Blood Pressure 96/42 115/48 O2 Sat by Pulse 100 100 100 Oximetry 09/19/17 09/19/17 08:30 08:45 Temperature Pulse Rate 104 H 101 H Pulse Rate [ Anterior Bilateral Throughout] Respiratory 17 17 Rate Respiratory Rate [Anterior Bilateral Throughout] Blood Pressure 110/43 109/90 O2 Sat by Pulse 100 Oximetry Constitutional: no acute distress, other (critically ill on vent, obese) Eyes: non-icteric ENT: oropharynx dry Neck: supple, no lymphadenopathy, no JVD (large neck), other (trach in position , no bleeding) Effort: mildly labored Ascultation: Bilateral: clear ( ), diminished breath sounds (Limited expansion) Cardiovascular: regular rate and rhythm Gastrointestinal: absent bowel sounds, tender, other (abdominal incision with dressing , obese. Drain in place, no bleeding) Integumentary: normal Extremities: no cyanosis, pink and warm, edema Neurologic: non-focal exam, pupils equal and round Psychiatric: mood appropriate, affect normal CBC and BMP: 09/19/17 06:00 09/18/17 05:10 ABG, PT/INR, D-dimer: ABG POC ABG pH 7.347 (7.35-7.45) L 09/13/17 11:36 ABG pH 7.323 pH Units (7.350-7.450) L 09/09/17 Unknown POC ABG pCO2 34.3 (35-45) L 09/13/17 11:36 ABG pCO2 41.1 mm Hg 09/09/17 Unknown POC ABG pO2 134 (80-105) H 09/13/17 11:36 ABG pO2 94.1 mm Hg (80.0-90.0) H 09/09/17 Unknown POC ABG HCO3 18.8 09/13/17 11:36 POC ABG Total CO2 20 09/13/17 11:36 POC ABG O2 Sat 99 09/13/17 11:36 ABG O2 Saturation 97.2 % (95.0-99.0) 09/09/17 Unknown PT/INR, D-dimer PT 15.4 Sec. (12.2-14.9) H 09/15/17 12:45 INR 1.16 (0.87-1.13) H 09/15/17 12:45 Abnormal lab findings: Abnormal Labs 08/08/17 08/08/17 08/09/17 21:23 21:31 11:19 WBC 15.7 H RBC 2.93 L Hgb 8.7 L Hct 26.8 L MCV MCH RDW 19.2 H Plt Count Lymph % (Auto) [place] % (Auto) [place] # Seg Neutrophils % Seg Neuts % (Manual) Lymphocytes % (Manual) Monocytes % (Manual) Nucleated RBC % Seg Neutrophils # Seg Neutrophils # Man Lymphocytes # (Manual) Monocytes # (Manual) Eosinophils # (Manual) Basophils # (Manual) PT INR POC ABG pH 7.490 H ABG pH POC ABG pCO2 POC ABG pO2 122 H ABG pO2 ABG O2 Saturation ABG Base Excess ABG Hemoglobin Oxyhemoglobin Sodium Potassium Chloride Carbon Dioxide BUN Creatinine Glucose POC Glucose Calcium Phosphorus Magnesium Iron TIBC Ferritin Total Bilirubin AST ALT Alkaline Phosphatase Total Creatine Kinase Troponin T 0.133 H* C-Reactive Protein Total Protein Albumin Triglycerides HDL Cholesterol 26 L Miscellaneous Test Crossmatch 08/09/17 08/10/17 08/10/17 13:25 04:45 04:45 WBC 15.5 H RBC 2.97 L Hgb 8.9 L Hct 27.0 L MCV MCH RDW 19.2 H Plt Count Lymph % (Auto) [place] % (Auto) [place] # Seg Neutrophils % Seg Neuts % (Manual) 73.0 H Lymphocytes % (Manual) 7.0 L Monocytes % (Manual) 14.0 H Nucleated RBC % Seg Neutrophils # Seg Neutrophils # Man 11.3 H Lymphocytes # (Manual) 1.1 L Monocytes # (Manual) 2.2 H Eosinophils # (Manual) Basophils # (Manual) 0.2 H PT INR POC ABG pH ABG pH POC ABG pCO2 POC ABG pO2 ABG pO2 ABG O2 Saturation ABG Base Excess ABG Hemoglobin Oxyhemoglobin Sodium Potassium 3.3 L Chloride 97.3 L Carbon Dioxide 21 L BUN 23 H Creatinine 6.5 H Glucose POC Glucose Calcium 7.3 L Phosphorus Magnesium Iron TIBC Ferritin Total Bilirubin AST ALT Alkaline Phosphatase 138 H Total Creatine Kinase Troponin T 0.132 H* C-Reactive Protein Total Protein 4.8 L Albumin 1.4 L Triglycerides HDL Cholesterol Miscellaneous Test Crossmatch 08/11/17 08/11/17 08/12/17 04:00 04:00 05:50 WBC 19.3 H RBC 3.10 L Hgb 9.5 L Hct 28.2 L MCV MCH RDW 19.2 H Plt Count 463 H Lymph % (Auto) 7.5 L [place] % (Auto) 14.6 H [place] # 2.8 H Seg Neutrophils % 77.0 H Seg Neuts % (Manual) Lymphocytes % (Manual) Monocytes % (Manual) Nucleated RBC % Seg Neutrophils # 14.8 H Seg Neutrophils # Man Lymphocytes # (Manual) Monocytes # (Manual) Eosinophils # (Manual) Basophils # (Manual) PT INR POC ABG pH ABG pH POC ABG pCO2 POC ABG pO2 ABG pO2 ABG O2 Saturation ABG Base Excess ABG Hemoglobin Oxyhemoglobin Sodium 136 L 136 L Potassium 3.3 L Chloride 96.3 L 96.6 L Carbon Dioxide BUN 26 H 26 H Creatinine 6.4 H 6.2 H Glucose 135 H 133 H POC Glucose Calcium 8.2 L Phosphorus Magnesium 1.30 L Iron TIBC Ferritin Total Bilirubin AST ALT Alkaline Phosphatase 139 H Total Creatine Kinase Troponin T C-Reactive Protein Total Protein 5.5 L Albumin 1.7 L Triglycerides HDL Cholesterol Miscellaneous Test Crossmatch 08/12/17 08/12/17 08/12/17 05:50 05:50 05:50 WBC 20.1 H RBC 3.06 L Hgb 9.3 L Hct 27.9 L MCV MCH RDW 18.4 H Plt Count 471 H Lymph % (Auto) [place] % (Auto) [place] # Seg Neutrophils % Seg Neuts % (Manual) 85.0 H Lymphocytes % (Manual) 8.0 L Monocytes % (Manual) Nucleated RBC % Seg Neutrophils # Seg Neutrophils # Man 17.1 H Lymphocytes # (Manual) Monocytes # (Manual) 1.0 H Eosinophils # (Manual) Basophils # (Manual) PT 15.2 H INR 1.14 H POC ABG pH ABG pH POC ABG pCO2 POC ABG pO2 ABG pO2 ABG O2 Saturation ABG Base Excess ABG Hemoglobin Oxyhemoglobin Sodium Potassium Chloride Carbon Dioxide BUN Creatinine Glucose POC Glucose Calcium Phosphorus Magnesium Iron TIBC Ferritin Total Bilirubin AST ALT Alkaline Phosphatase Total Creatine Kinase Troponin T C-Reactive Protein 28.90 H Total Protein Albumin Triglycerides HDL Cholesterol Miscellaneous Test Crossmatch 08/12/17 08/13/17 08/13/17 16:23 06:14 06:14 WBC 21.8 H RBC 3.11 L Hgb 9.4 L Hct 28.2 L MCV MCH RDW 18.2 H Plt Count 492 H Lymph % (Auto) [place] % (Auto) [place] # Seg Neutrophils % Seg Neuts % (Manual) 73.0 H Lymphocytes % (Manual) 2.0 L Monocytes % (Manual) 15 H Nucleated RBC % Seg Neutrophils # Seg Neutrophils # Man 15.9 H Lymphocytes # (Manual) 0.4 L Monocytes # (Manual) 2.4 H Eosinophils # (Manual) Basophils # (Manual) PT INR POC ABG pH ABG pH POC ABG pCO2 POC ABG pO2 ABG pO2 ABG O2 Saturation ABG Base Excess ABG Hemoglobin Oxyhemoglobin Sodium Potassium Chloride 96.2 L Carbon Dioxide BUN 28 H Creatinine 5.6 H Glucose 114 H POC Glucose Calcium Phosphorus Magnesium Iron TIBC Ferritin Total Bilirubin AST ALT Alkaline Phosphatase Total Creatine Kinase Troponin T C-Reactive Protein 26.10 H Total Protein Albumin Triglycerides HDL Cholesterol Miscellaneous Test Crossmatch 08/13/17 08/14/17 08/14/17 16:39 04:00 04:00 WBC 22.1 H RBC 3.25 L Hgb 9.9 L Hct 29.5 L MCV MCH RDW 17.9 H Plt Count 525 H Lymph % (Auto) [place] % (Auto) [place] # Seg Neutrophils % Seg Neuts % (Manual) 74.0 H Lymphocytes % (Manual) 8.0 L Monocytes % (Manual) 12.0 H Nucleated RBC % Seg Neutrophils # Seg Neutrophils # Man 16.4 H Lymphocytes # (Manual) Monocytes # (Manual) 2.7 H Eosinophils # (Manual) Basophils # (Manual) PT INR POC ABG pH ABG pH POC ABG pCO2 POC ABG pO2 ABG pO2 ABG O2 Saturation ABG Base Excess ABG Hemoglobin Oxyhemoglobin Sodium 134 L Potassium 3.3 L Chloride 93.3 L Carbon Dioxide BUN 27 H Creatinine 6.0 H Glucose 152 H POC Glucose 151 H Calcium Phosphorus Magnesium Iron TIBC Ferritin Total Bilirubin AST ALT Alkaline Phosphatase Total Creatine Kinase Troponin T C-Reactive Protein Total Protein Albumin Triglycerides HDL Cholesterol Miscellaneous Test Crossmatch 08/15/17 08/16/17 08/16/17 09:10 09:50 09:50 WBC 31.1 H RBC 3.21 L Hgb 9.6 L Hct 29.3 L MCV MCH RDW 18.1 H Plt Count 642 H Lymph % (Auto) [place] % (Auto) [place] # Seg Neutrophils % Seg Neuts % (Manual) 74.0 H Lymphocytes % (Manual) 4.0 L Monocytes % (Manual) 9.0 H Nucleated RBC % Seg Neutrophils # Seg Neutrophils # Man 23.0 H Lymphocytes # (Manual) Monocytes # (Manual) 2.8 H Eosinophils # (Manual) Basophils # (Manual) PT INR POC ABG pH ABG pH POC ABG pCO2 POC ABG pO2 ABG pO2 ABG O2 Saturation ABG Base Excess ABG Hemoglobin Oxyhemoglobin Sodium 136 L 136 L Potassium 3.5 L Chloride 97.6 L 94.9 L Carbon Dioxide BUN 27 H 28 H Creatinine 5.6 H 5.5 H Glucose 117 H 103 H POC Glucose Calcium Phosphorus Magnesium Iron TIBC Ferritin Total Bilirubin AST ALT Alkaline Phosphatase 137 H Total Creatine Kinase Troponin T C-Reactive Protein Total Protein 5.4 L Albumin 1.5 L Triglycerides HDL Cholesterol Miscellaneous Test Crossmatch 08/16/17 08/17/17 08/17/17 09:50 05:00 06:26 WBC RBC Hgb Hct MCV MCH RDW Plt Count Lymph % (Auto) [place] % (Auto) [place] # Seg Neutrophils % Seg Neuts % (Manual) Lymphocytes % (Manual) Monocytes % (Manual) Nucleated RBC % Seg Neutrophils # Seg Neutrophils # Man Lymphocytes # (Manual) Monocytes # (Manual) Eosinophils # (Manual) Basophils # (Manual) PT INR POC ABG pH ABG pH POC ABG pCO2 POC ABG pO2 ABG pO2 ABG O2 Saturation ABG Base Excess ABG Hemoglobin Oxyhemoglobin Sodium 134 L Potassium 3.0 L Chloride 97.8 L Carbon Dioxide BUN 30 H Creatinine 5.3 H Glucose 147 H POC Glucose 165 H Calcium 7.5 L Phosphorus Magnesium Iron TIBC Ferritin Total Bilirubin AST ALT Alkaline Phosphatase Total Creatine Kinase Troponin T C-Reactive Protein 32.30 H Total Protein Albumin Triglycerides HDL Cholesterol Miscellaneous Test Crossmatch 08/17/17 08/17/17 08/17/17 10:56 11:20 11:20 WBC 39.1 H RBC 3.10 L Hgb 9.2 L Hct 28.6 L MCV MCH RDW 18.3 H Plt Count 580 H Lymph % (Auto) [place] % (Auto) [place] # Seg Neutrophils % Seg Neuts % (Manual) 89.5 H Lymphocytes % (Manual) 3.5 L Monocytes % (Manual) Nucleated RBC % Seg Neutrophils # Seg Neutrophils # Man 35.0 H Lymphocytes # (Manual) Monocytes # (Manual) 2.5 H Eosinophils # (Manual) Basophils # (Manual) 0.2 H PT INR POC ABG pH 7.464 H ABG pH POC ABG pCO2 34.1 L POC ABG pO2 75 L ABG pO2 ABG O2 Saturation ABG Base Excess ABG Hemoglobin Oxyhemoglobin Sodium Potassium Chloride Carbon Dioxide BUN Creatinine Glucose POC Glucose Calcium Phosphorus Magnesium Iron TIBC Ferritin Total Bilirubin AST ALT Alkaline Phosphatase Total Creatine Kinase Troponin T C-Reactive Protein Total Protein Albumin Triglycerides HDL Cholesterol Miscellaneous Test Flexitest 1 H Crossmatch 08/17/17 08/17/17 08/17/17 11:20 16:57 20:20 WBC 34.4 H RBC 2.81 L Hgb 8.4 L Hct 26.0 L MCV MCH RDW 17.8 H Plt Count 455 H Lymph % (Auto) [place] % (Auto) [place] # Seg Neutrophils % Seg Neuts % (Manual) Lymphocytes % (Manual) 3.5 L Monocytes % (Manual) Nucleated RBC % 5.0 H Seg Neutrophils # Seg Neutrophils # Man 16.5 H Lymphocytes # (Manual) Monocytes # (Manual) 1.0 H Eosinophils # (Manual) Basophils # (Manual) PT 16.0 H INR 1.29 H POC ABG pH ABG pH POC ABG pCO2 POC ABG pO2 ABG pO2 ABG O2 Saturation ABG Base Excess ABG Hemoglobin Oxyhemoglobin Sodium 135 L Potassium 2.9 L* Chloride Carbon Dioxide 20 L BUN 32 H Creatinine 5.4 H Glucose 129 H POC Glucose Calcium 7.5 L Phosphorus Magnesium 1.50 L Iron TIBC Ferritin Total Bilirubin AST 85 H ALT Alkaline Phosphatase Total Creatine Kinase Troponin T C-Reactive Protein Total Protein 4.0 L D Albumin 1.6 L Triglycerides HDL Cholesterol Miscellaneous Test Crossmatch 08/17/17 08/17/17 08/18/17 20:54 23:47 04:26 WBC RBC Hgb Hct MCV MCH RDW Plt Count Lymph % (Auto) [place] % (Auto) [place] # Seg Neutrophils % Seg Neuts % (Manual) Lymphocytes % (Manual) Monocytes % (Manual) Nucleated RBC % Seg Neutrophils # Seg Neutrophils # Man Lymphocytes # (Manual) Monocytes # (Manual) Eosinophils # (Manual) Basophils # (Manual) PT INR POC ABG pH 7.557 H ABG pH POC ABG pCO2 23.1 L 29.0 L POC ABG pO2 187 H 148 H ABG pO2 ABG O2 Saturation ABG Base Excess ABG Hemoglobin Oxyhemoglobin Sodium Potassium Chloride Carbon Dioxide BUN Creatinine Glucose POC Glucose 188 H Calcium Phosphorus Magnesium Iron TIBC Ferritin Total Bilirubin AST ALT Alkaline Phosphatase Total Creatine Kinase Troponin T C-Reactive Protein Total Protein Albumin Triglycerides HDL Cholesterol Miscellaneous Test Crossmatch 08/18/17 08/18/17 08/18/17 05:51 11:44 17:07 WBC RBC Hgb Hct MCV MCH RDW Plt Count Lymph % (Auto) [place] % (Auto) [place] # Seg Neutrophils % Seg Neuts % (Manual) Lymphocytes % (Manual) Monocytes % (Manual) Nucleated RBC % Seg Neutrophils # Seg Neutrophils # Man Lymphocytes # (Manual) Monocytes # (Manual) Eosinophils # (Manual) Basophils # (Manual) PT INR POC ABG pH ABG pH POC ABG pCO2 POC ABG pO2 ABG pO2 ABG O2 Saturation ABG Base Excess ABG Hemoglobin Oxyhemoglobin Sodium Potassium Chloride Carbon Dioxide BUN Creatinine Glucose POC Glucose 202 H 195 H 182 H Calcium Phosphorus Magnesium Iron TIBC Ferritin Total Bilirubin AST ALT Alkaline Phosphatase Total Creatine Kinase Troponin T C-Reactive Protein Total Protein Albumin Triglycerides HDL Cholesterol Miscellaneous Test Crossmatch 08/18/17 08/18/17 08/18/17 23:45 Unknown Unknown WBC 39.0 H RBC 2.84 L Hgb 8.4 L Hct 26.5 L MCV MCH RDW 18.0 H Plt Count 476 H Lymph % (Auto) [place] % (Auto) [place] # Seg Neutrophils % Seg Neuts % (Manual) Lymphocytes % (Manual) 7.0 L Monocytes % (Manual) 10.0 H Nucleated RBC % 3.0 H Seg Neutrophils # Seg Neutrophils # Man 15.6 H Lymphocytes # (Manual) Monocytes # (Manual) 3.9 H Eosinophils # (Manual) Basophils # (Manual) PT INR POC ABG pH ABG pH POC ABG pCO2 POC ABG pO2 ABG pO2 ABG O2 Saturation ABG Base Excess ABG Hemoglobin Oxyhemoglobin Sodium Potassium Chloride Carbon Dioxide 19 L BUN 34 H Creatinine 5.6 H Glucose 201 H POC Glucose 163 H Calcium 7.8 L Phosphorus 1.90 L D Magnesium 1.60 L Iron TIBC Ferritin Total Bilirubin AST ALT Alkaline Phosphatase Total Creatine Kinase Troponin T C-Reactive Protein Total Protein Albumin Triglycerides HDL Cholesterol Miscellaneous Test Crossmatch 08/19/17 08/19/17 08/19/17 04:18 05:00 05:00 WBC 40.0 H RBC 2.46 L Hgb 7.3 L Hct 22.6 L MCV MCH RDW 18.1 H Plt Count Lymph % (Auto) [place] % (Auto) [place] # Seg Neutrophils % Seg Neuts % (Manual) Lymphocytes % (Manual) 8.0 L Monocytes % (Manual) Nucleated RBC % 2.0 H Seg Neutrophils # Seg Neutrophils # Man 16.4 H Lymphocytes # (Manual) Monocytes # (Manual) 1.2 H Eosinophils # (Manual) 1.2 H Basophils # (Manual) PT INR POC ABG pH 7.463 H ABG pH POC ABG pCO2 29.7 L POC ABG pO2 134 H ABG pO2 ABG O2 Saturation ABG Base Excess ABG Hemoglobin Oxyhemoglobin Sodium Potassium 5.1 H D Chloride Carbon Dioxide 20 L BUN 40 H Creatinine 5.3 H Glucose 128 H POC Glucose Calcium 7.8 L Phosphorus 1.90 L Magnesium Iron TIBC Ferritin Total Bilirubin AST ALT Alkaline Phosphatase Total Creatine Kinase Troponin T C-Reactive Protein Total Protein Albumin Triglycerides HDL Cholesterol Miscellaneous Test Crossmatch 08/19/17 08/19/17 08/19/17 05:19 07:37 09:52 WBC 45.0 H* RBC 2.50 L Hgb 7.5 L Hct 24.5 L MCV 98 H MCH RDW 18.4 H Plt Count Lymph % (Auto) [place] % (Auto) [place] # Seg Neutrophils % Seg Neuts % (Manual) 81.5 H Lymphocytes % (Manual) 4.0 L Monocytes % (Manual) Nucleated RBC % 1.0 H Seg Neutrophils # Seg Neutrophils # Man 36.7 H Lymphocytes # (Manual) Monocytes # (Manual) Eosinophils # (Manual) Basophils # (Manual) PT INR POC ABG pH ABG pH POC ABG pCO2 POC ABG pO2 ABG pO2 ABG O2 Saturation ABG Base Excess ABG Hemoglobin Oxyhemoglobin Sodium Potassium Chloride Carbon Dioxide BUN Creatinine Glucose POC Glucose 142 H Calcium Phosphorus Magnesium Iron TIBC Ferritin Total Bilirubin AST ALT Alkaline Phosphatase Total Creatine Kinase Troponin T C-Reactive Protein 34.20 H Total Protein Albumin Triglycerides HDL Cholesterol Miscellaneous Test Crossmatch 08/19/17 08/19/17 08/20/17 11:16 18:12 00:35 WBC RBC Hgb Hct MCV MCH RDW Plt Count Lymph % (Auto) [place] % (Auto) [place] # Seg Neutrophils % Seg Neuts % (Manual) Lymphocytes % (Manual) Monocytes % (Manual) Nucleated RBC % Seg Neutrophils # Seg Neutrophils # Man Lymphocytes # (Manual) Monocytes # (Manual) Eosinophils # (Manual) Basophils # (Manual) PT INR POC ABG pH ABG pH POC ABG pCO2 POC ABG pO2 ABG pO2 ABG O2 Saturation ABG Base Excess ABG Hemoglobin Oxyhemoglobin Sodium Potassium Chloride Carbon Dioxide BUN Creatinine Glucose POC Glucose 143 H 137 H 164 H Calcium Phosphorus Magnesium Iron TIBC Ferritin Total Bilirubin AST ALT Alkaline Phosphatase Total Creatine Kinase Troponin T C-Reactive Protein Total Protein Albumin Triglycerides HDL Cholesterol Miscellaneous Test Crossmatch 08/20/17 08/20/17 08/20/17 03:20 03:20 04:00 WBC 48.0 H* RBC 2.55 L Hgb 7.6 L Hct 23.4 L MCV MCH RDW 18.4 H Plt Count Lymph % (Auto) [place] % (Auto) [place] # Seg Neutrophils % Seg Neuts % (Manual) 90.0 H Lymphocytes % (Manual) 3.0 L Monocytes % (Manual) Nucleated RBC % Seg Neutrophils # Seg Neutrophils # Man 43.2 H Lymphocytes # (Manual) Monocytes # (Manual) 1.4 H Eosinophils # (Manual) 0.5 H Basophils # (Manual) PT INR POC ABG pH 7.499 H ABG pH POC ABG pCO2 29.1 L POC ABG pO2 ABG pO2 ABG O2 Saturation ABG Base Excess ABG Hemoglobin Oxyhemoglobin Sodium 135 L Potassium Chloride Carbon Dioxide BUN 28 H Creatinine 4.0 H Glucose 140 H POC Glucose Calcium 8.0 L Phosphorus 1.70 L Magnesium 1.60 L Iron TIBC Ferritin Total Bilirubin AST ALT Alkaline Phosphatase Total Creatine Kinase Troponin T C-Reactive Protein Total Protein Albumin Triglycerides HDL Cholesterol Miscellaneous Test Crossmatch 08/20/17 08/20/17 08/20/17 05:02 12:05 13:12 WBC RBC Hgb Hct MCV MCH RDW Plt Count Lymph % (Auto) [place] % (Auto) [place] # Seg Neutrophils % Seg Neuts % (Manual) Lymphocytes % (Manual) Monocytes % (Manual) Nucleated RBC % Seg Neutrophils # Seg Neutrophils # Man Lymphocytes # (Manual) Monocytes # (Manual) Eosinophils # (Manual) Basophils # (Manual) PT INR POC ABG pH 7.537 H ABG pH POC ABG pCO2 27.9 L POC ABG pO2 79 L ABG pO2 ABG O2 Saturation ABG Base Excess ABG Hemoglobin Oxyhemoglobin Sodium Potassium Chloride Carbon Dioxide BUN Creatinine Glucose POC Glucose 158 H 203 H Calcium Phosphorus Magnesium Iron TIBC Ferritin Total Bilirubin AST ALT Alkaline Phosphatase Total Creatine Kinase Troponin T C-Reactive Protein Total Protein Albumin Triglycerides HDL Cholesterol Miscellaneous Test Crossmatch 08/20/17 08/21/17 08/21/17 17:13 00:47 03:14 WBC RBC Hgb Hct MCV MCH RDW Plt Count Lymph % (Auto) [place] % (Auto) [place] # Seg Neutrophils % Seg Neuts % (Manual) Lymphocytes % (Manual) Monocytes % (Manual) Nucleated RBC % Seg Neutrophils # Seg Neutrophils # Man Lymphocytes # (Manual) Monocytes # (Manual) Eosinophils # (Manual) Basophils # (Manual) PT INR POC ABG pH 7.481 H ABG pH POC ABG pCO2 29.6 L POC ABG pO2 ABG pO2 ABG O2 Saturation ABG Base Excess ABG Hemoglobin Oxyhemoglobin Sodium Potassium Chloride Carbon Dioxide BUN Creatinine Glucose POC Glucose 188 H 109 H Calcium Phosphorus Magnesium Iron TIBC Ferritin Total Bilirubin AST ALT Alkaline Phosphatase Total Creatine Kinase Troponin T C-Reactive Protein Total Protein Albumin Triglycerides HDL Cholesterol Miscellaneous Test Crossmatch 08/21/17 08/21/17 08/21/17 05:05 06:50 06:50 WBC 44.7 H* RBC 2.41 L Hgb 7.1 L Hct 22.1 L MCV MCH RDW 18.3 H Plt Count Lymph % (Auto) [place] % (Auto) [place] # Seg Neutrophils % Seg Neuts % (Manual) 89.0 H Lymphocytes % (Manual) 0 L Monocytes % (Manual) Nucleated RBC % 1.0 H Seg Neutrophils # Seg Neutrophils # Man 39.8 H Lymphocytes # (Manual) 0.0 L Monocytes # (Manual) 1.3 H Eosinophils # (Manual) Basophils # (Manual) PT INR POC ABG pH ABG pH POC ABG pCO2 POC ABG pO2 ABG pO2 ABG O2 Saturation ABG Base Excess ABG Hemoglobin Oxyhemoglobin Sodium 135 L Potassium Chloride Carbon Dioxide BUN 39 H Creatinine 4.4 H Glucose 147 H POC Glucose 166 H Calcium 8.1 L Phosphorus Magnesium Iron TIBC Ferritin Total Bilirubin AST ALT < 5 L Alkaline Phosphatase 164 H Total Creatine Kinase Troponin T C-Reactive Protein Total Protein 4.7 L Albumin 1.4 L Triglycerides HDL Cholesterol Miscellaneous Test Crossmatch 08/21/17 08/21/17 08/21/17 08:00 12:21 17:02 WBC RBC Hgb Hct MCV MCH RDW Plt Count Lymph % (Auto) [place] % (Auto) [place] # Seg Neutrophils % Seg Neuts % (Manual) Lymphocytes % (Manual) Monocytes % (Manual) Nucleated RBC % Seg Neutrophils # Seg Neutrophils # Man Lymphocytes # (Manual) Monocytes # (Manual) Eosinophils # (Manual) Basophils # (Manual) PT INR POC ABG pH ABG pH POC ABG pCO2 POC ABG pO2 ABG pO2 ABG O2 Saturation ABG Base Excess ABG Hemoglobin Oxyhemoglobin Sodium Potassium Chloride Carbon Dioxide BUN Creatinine Glucose POC Glucose 147 H 135 H Calcium Phosphorus Magnesium Iron TIBC Ferritin Total Bilirubin AST ALT Alkaline Phosphatase Total Creatine Kinase Troponin T C-Reactive Protein Total Protein Albumin Triglycerides HDL Cholesterol Miscellaneous Test Crossmatch See Detail 08/21/17 08/22/17 08/22/17 23:38 03:40 03:40 WBC 42.5 H* RBC 2.88 L Hgb 8.5 L Hct 26.3 L MCV MCH RDW 17.9 H Plt Count Lymph % (Auto) [place] % (Auto) [place] # Seg Neutrophils % Seg Neuts % (Manual) Lymphocytes % (Manual) 5.0 L Monocytes % (Manual) Nucleated RBC % Seg Neutrophils # Seg Neutrophils # Man 19.6 H Lymphocytes # (Manual) Monocytes # (Manual) 2.6 H Eosinophils # (Manual) Basophils # (Manual) PT INR POC ABG pH ABG pH POC ABG pCO2 POC ABG pO2 ABG pO2 ABG O2 Saturation ABG Base Excess ABG Hemoglobin Oxyhemoglobin Sodium Potassium 3.3 L D Chloride Carbon Dioxide BUN 27 H Creatinine 2.9 H Glucose 144 H POC Glucose 251 H Calcium 8.0 L Phosphorus 2.40 L Magnesium Iron TIBC Ferritin Total Bilirubin AST ALT Alkaline Phosphatase Total Creatine Kinase Troponin T C-Reactive Protein Total Protein Albumin Triglycerides HDL Cholesterol Miscellaneous Test Crossmatch 08/22/17 08/22/17 08/22/17 06:37 08:50 11:25 WBC RBC Hgb Hct MCV MCH RDW Plt Count Lymph % (Auto) [place] % (Auto) [place] # Seg Neutrophils % Seg Neuts % (Manual) Lymphocytes % (Manual) Monocytes % (Manual) Nucleated RBC % Seg Neutrophils # Seg Neutrophils # Man Lymphocytes # (Manual) Monocytes # (Manual) Eosinophils # (Manual) Basophils # (Manual) PT INR POC ABG pH ABG pH POC ABG pCO2 POC ABG pO2 ABG pO2 ABG O2 Saturation ABG Base Excess ABG Hemoglobin Oxyhemoglobin Sodium Potassium Chloride Carbon Dioxide BUN Creatinine Glucose POC Glucose 152 H 175 H Calcium Phosphorus Magnesium Iron TIBC Ferritin Total Bilirubin AST ALT Alkaline Phosphatase Total Creatine Kinase Troponin T C-Reactive Protein Total Protein Albumin Triglycerides HDL Cholesterol Miscellaneous Test Flexitest 1 H Crossmatch 08/22/17 08/22/17 08/22/17 16:25 17:56 23:03 WBC RBC Hgb Hct MCV MCH RDW Plt Count Lymph % (Auto) [place] % (Auto) [place] # Seg Neutrophils % Seg Neuts % (Manual) Lymphocytes % (Manual) Monocytes % (Manual) Nucleated RBC % Seg Neutrophils # Seg Neutrophils # Man Lymphocytes # (Manual) Monocytes # (Manual) Eosinophils # (Manual) Basophils # (Manual) PT INR POC ABG pH ABG pH POC ABG pCO2 POC ABG pO2 ABG pO2 ABG O2 Saturation ABG Base Excess ABG Hemoglobin Oxyhemoglobin Sodium Potassium Chloride Carbon Dioxide BUN Creatinine Glucose POC Glucose 232 H 192 H Calcium Phosphorus Magnesium Iron TIBC Ferritin Total Bilirubin AST ALT Alkaline Phosphatase Total Creatine Kinase Troponin T C-Reactive Protein 30.70 H Total Protein Albumin Triglycerides HDL Cholesterol Miscellaneous Test Crossmatch 08/23/17 08/23/17 08/23/17 05:36 08:50 12:14 WBC RBC Hgb Hct MCV MCH RDW Plt Count Lymph % (Auto) [place] % (Auto) [place] # Seg Neutrophils % Seg Neuts % (Manual) Lymphocytes % (Manual) Monocytes % (Manual) Nucleated RBC % Seg Neutrophils # Seg Neutrophils # Man Lymphocytes # (Manual) Monocytes # (Manual) Eosinophils # (Manual) Basophils # (Manual) PT INR POC ABG pH ABG pH POC ABG pCO2 POC ABG pO2 ABG pO2 ABG O2 Saturation ABG Base Excess ABG Hemoglobin Oxyhemoglobin Sodium Potassium Chloride 107.1 H Carbon Dioxide BUN 49 H Creatinine 3.3 H Glucose 172 H POC Glucose 206 H 238 H Calcium Phosphorus Magnesium 2.40 H Iron TIBC Ferritin Total Bilirubin AST ALT Alkaline Phosphatase Total Creatine Kinase Troponin T C-Reactive Protein Total Protein Albumin Triglycerides HDL Cholesterol Miscellaneous Test Crossmatch 08/23/17 08/23/17 08/24/17 17:21 23:13 04:00 WBC 34.2 H RBC 2.86 L Hgb 8.4 L Hct 25.9 L MCV MCH RDW 17.9 H Plt Count Lymph % (Auto) [place] % (Auto) [place] # Seg Neutrophils % Seg Neuts % (Manual) 85.0 H Lymphocytes % (Manual) 0.5 L Monocytes % (Manual) Nucleated RBC % 1.0 H Seg Neutrophils # Seg Neutrophils # Man 29.1 H Lymphocytes # (Manual) 0.2 L Monocytes # (Manual) 2.4 H Eosinophils # (Manual) Basophils # (Manual) PT INR POC ABG pH ABG pH POC ABG pCO2 POC ABG pO2 ABG pO2 ABG O2 Saturation ABG Base Excess ABG Hemoglobin Oxyhemoglobin Sodium Potassium Chloride Carbon Dioxide BUN Creatinine Glucose POC Glucose 226 H 183 H Calcium Phosphorus Magnesium Iron TIBC Ferritin Total Bilirubin AST ALT Alkaline Phosphatase Total Creatine Kinase Troponin T C-Reactive Protein Total Protein Albumin Triglycerides HDL Cholesterol Miscellaneous Test Crossmatch 08/24/17 08/24/17 08/24/17 05:06 09:30 12:04 WBC RBC Hgb Hct MCV MCH RDW Plt Count Lymph % (Auto) [place] % (Auto) [place] # Seg Neutrophils % Seg Neuts % (Manual) Lymphocytes % (Manual) Monocytes % (Manual) Nucleated RBC % Seg Neutrophils # Seg Neutrophils # Man Lymphocytes # (Manual) Monocytes # (Manual) Eosinophils # (Manual) Basophils # (Manual) PT INR POC ABG pH ABG pH POC ABG pCO2 POC ABG pO2 ABG pO2 ABG O2 Saturation ABG Base Excess ABG Hemoglobin Oxyhemoglobin Sodium Potassium Chloride Carbon Dioxide BUN 46 H Creatinine 2.5 H Glucose 176 H POC Glucose 201 H 181 H Calcium Phosphorus Magnesium Iron TIBC Ferritin Total Bilirubin AST ALT Alkaline Phosphatase Total Creatine Kinase Troponin T C-Reactive Protein Total Protein Albumin Triglycerides HDL Cholesterol Miscellaneous Test Crossmatch 08/24/17 08/24/17 08/25/17 18:04 23:05 05:05 WBC RBC Hgb Hct MCV MCH RDW Plt Count Lymph % (Auto) [place] % (Auto) [place] # Seg Neutrophils % Seg Neuts % (Manual) Lymphocytes % (Manual) Monocytes % (Manual) Nucleated RBC % Seg Neutrophils # Seg Neutrophils # Man Lymphocytes # (Manual) Monocytes # (Manual) Eosinophils # (Manual) Basophils # (Manual) PT INR POC ABG pH ABG pH POC ABG pCO2 POC ABG pO2 ABG pO2 ABG O2 Saturation ABG Base Excess ABG Hemoglobin Oxyhemoglobin Sodium Potassium Chloride Carbon Dioxide BUN Creatinine Glucose POC Glucose 189 H 175 H 190 H Calcium Phosphorus Magnesium Iron TIBC Ferritin Total Bilirubin AST ALT Alkaline Phosphatase Total Creatine Kinase Troponin T C-Reactive Protein Total Protein Albumin Triglycerides HDL Cholesterol Miscellaneous Test Crossmatch 08/25/17 08/25/17 08/26/17 07:02 11:53 05:30 WBC 33.5 H RBC 2.47 L Hgb 7.3 L Hct 23.0 L MCV MCH RDW 21.3 H Plt Count Lymph % (Auto) [place] % (Auto) [place] # Seg Neutrophils % Seg Neuts % (Manual) 92.0 H Lymphocytes % (Manual) 1.0 L Monocytes % (Manual) Nucleated RBC % Seg Neutrophils # Seg Neutrophils # Man 30.8 H Lymphocytes # (Manual) 0.3 L Monocytes # (Manual) Eosinophils # (Manual) Basophils # (Manual) PT INR POC ABG pH ABG pH POC ABG pCO2 POC ABG pO2 ABG pO2 ABG O2 Saturation ABG Base Excess ABG Hemoglobin Oxyhemoglobin Sodium Potassium Chloride Carbon Dioxide BUN 32 H Creatinine 5.0 H D Glucose 117 H POC Glucose 191 H Calcium 8.0 L Phosphorus Magnesium Iron TIBC Ferritin Total Bilirubin AST ALT Alkaline Phosphatase Total Creatine Kinase Troponin T C-Reactive Protein Total Protein Albumin Triglycerides HDL Cholesterol Miscellaneous Test Crossmatch 08/26/17 08/26/17 08/26/17 05:30 06:44 13:26 WBC RBC Hgb Hct MCV MCH RDW Plt Count Lymph % (Auto) [place] % (Auto) [place] # Seg Neutrophils % Seg Neuts % (Manual) Lymphocytes % (Manual) Monocytes % (Manual) Nucleated RBC % Seg Neutrophils # Seg Neutrophils # Man Lymphocytes # (Manual) Monocytes # (Manual) Eosinophils # (Manual) Basophils # (Manual) PT INR POC ABG pH ABG pH POC ABG pCO2 POC ABG pO2 ABG pO2 ABG O2 Saturation ABG Base Excess ABG Hemoglobin Oxyhemoglobin Sodium Potassium 5.2 H Chloride Carbon Dioxide BUN 80 H Creatinine 3.4 H Glucose 193 H POC Glucose 232 H 207 H Calcium 8.3 L Phosphorus 6.80 H D Magnesium 2.60 H Iron TIBC Ferritin Total Bilirubin AST 135 H ALT Alkaline Phosphatase 211 H Total Creatine Kinase Troponin T C-Reactive Protein Total Protein 4.8 L Albumin 2.0 L Triglycerides HDL Cholesterol Miscellaneous Test Crossmatch 08/27/17 08/27/17 08/27/17 01:08 06:20 06:20 WBC 35.0 H RBC 2.75 L Hgb 8.4 L Hct 25.1 L MCV MCH RDW 21.8 H Plt Count Lymph % (Auto) [place] % (Auto) [place] # Seg Neutrophils % Seg Neuts % (Manual) Lymphocytes % (Manual) 4.5 L Monocytes % (Manual) Nucleated RBC % Seg Neutrophils # Seg Neutrophils # Man 31.9 H Lymphocytes # (Manual) Monocytes # (Manual) 1.2 H Eosinophils # (Manual) Basophils # (Manual) PT INR POC ABG pH ABG pH POC ABG pCO2 POC ABG pO2 ABG pO2 ABG O2 Saturation ABG Base Excess ABG Hemoglobin Oxyhemoglobin Sodium Potassium Chloride Carbon Dioxide BUN 61 H Creatinine 2.6 H Glucose 184 H POC Glucose 146 H Calcium Phosphorus 4.90 H D Magnesium Iron TIBC Ferritin Total Bilirubin AST ALT Alkaline Phosphatase Total Creatine Kinase Troponin T C-Reactive Protein Total Protein Albumin Triglycerides HDL Cholesterol Miscellaneous Test Crossmatch 08/27/17 08/27/17 08/27/17 07:01 09:17 12:52 WBC RBC Hgb Hct MCV MCH RDW Plt Count Lymph % (Auto) [place] % (Auto) [place] # Seg Neutrophils % Seg Neuts % (Manual) Lymphocytes % (Manual) Monocytes % (Manual) Nucleated RBC % Seg Neutrophils # Seg Neutrophils # Man Lymphocytes # (Manual) Monocytes # (Manual) Eosinophils # (Manual) Basophils # (Manual) PT INR POC ABG pH ABG pH POC ABG pCO2 POC ABG pO2 ABG pO2 ABG O2 Saturation ABG Base Excess ABG Hemoglobin Oxyhemoglobin Sodium Potassium Chloride Carbon Dioxide BUN Creatinine Glucose POC Glucose 165 H 198 H 218 H Calcium Phosphorus Magnesium Iron TIBC Ferritin Total Bilirubin AST ALT Alkaline Phosphatase Total Creatine Kinase Troponin T C-Reactive Protein Total Protein Albumin Triglycerides HDL Cholesterol Miscellaneous Test Crossmatch 08/27/17 08/28/17 08/28/17 17:27 02:13 06:46 WBC RBC Hgb Hct MCV MCH RDW Plt Count Lymph % (Auto) [place] % (Auto) [place] # Seg Neutrophils % Seg Neuts % (Manual) Lymphocytes % (Manual) Monocytes % (Manual) Nucleated RBC % Seg Neutrophils # Seg Neutrophils # Man Lymphocytes # (Manual) Monocytes # (Manual) Eosinophils # (Manual) Basophils # (Manual) PT INR POC ABG pH ABG pH POC ABG pCO2 POC ABG pO2 ABG pO2 ABG O2 Saturation ABG Base Excess ABG Hemoglobin Oxyhemoglobin Sodium Potassium Chloride Carbon Dioxide BUN Creatinine Glucose POC Glucose 151 H 155 H 230 H Calcium Phosphorus Magnesium Iron TIBC Ferritin Total Bilirubin AST ALT Alkaline Phosphatase Total Creatine Kinase Troponin T C-Reactive Protein Total Protein Albumin Triglycerides HDL Cholesterol Miscellaneous Test Crossmatch 08/28/17 08/28/17 08/28/17 06:53 06:53 08:19 WBC 31.1 H RBC 2.26 L Hgb 6.8 L Hct 20.9 L MCV MCH RDW 21.7 H Plt Count Lymph % (Auto) [place] % (Auto) [place] # Seg Neutrophils % Seg Neuts % (Manual) 83.0 H Lymphocytes % (Manual) 4.0 L Monocytes % (Manual) Nucleated RBC % Seg Neutrophils # Seg Neutrophils # Man 25.8 H Lymphocytes # (Manual) Monocytes # (Manual) Eosinophils # (Manual) Basophils # (Manual) PT INR POC ABG pH ABG pH POC ABG pCO2 POC ABG pO2 ABG pO2 ABG O2 Saturation ABG Base Excess ABG Hemoglobin Oxyhemoglobin Sodium Potassium Chloride Carbon Dioxide BUN 81 H Creatinine 3.4 H Glucose 218 H POC Glucose 239 H Calcium Phosphorus 4.90 H Magnesium Iron TIBC Ferritin Total Bilirubin AST ALT Alkaline Phosphatase Total Creatine Kinase Troponin T C-Reactive Protein Total Protein Albumin Triglycerides HDL Cholesterol Miscellaneous Test Crossmatch 08/28/17 08/28/17 08/28/17 11:56 13:05 13:29 WBC RBC Hgb Hct MCV MCH RDW Plt Count Lymph % (Auto) [place] % (Auto) [place] # Seg Neutrophils % Seg Neuts % (Manual) Lymphocytes % (Manual) Monocytes % (Manual) Nucleated RBC % Seg Neutrophils # Seg Neutrophils # Man Lymphocytes # (Manual) Monocytes # (Manual) Eosinophils # (Manual) Basophils # (Manual) PT 16.7 H INR 1.29 H POC ABG pH ABG pH POC ABG pCO2 POC ABG pO2 338 H ABG pO2 ABG O2 Saturation ABG Base Excess ABG Hemoglobin Oxyhemoglobin Sodium Potassium Chloride Carbon Dioxide BUN Creatinine Glucose POC Glucose Calcium Phosphorus Magnesium Iron TIBC Ferritin Total Bilirubin AST ALT Alkaline Phosphatase Total Creatine Kinase Troponin T C-Reactive Protein Total Protein Albumin Triglycerides HDL Cholesterol Miscellaneous Test Crossmatch See Detail 08/28/17 08/28/17 08/29/17 16:22 19:20 04:24 WBC RBC Hgb Hct MCV MCH RDW Plt Count Lymph % (Auto) [place] % (Auto) [place] # Seg Neutrophils % Seg Neuts % (Manual) Lymphocytes % (Manual) Monocytes % (Manual) Nucleated RBC % Seg Neutrophils # Seg Neutrophils # Man Lymphocytes # (Manual) Monocytes # (Manual) Eosinophils # (Manual) Basophils # (Manual) PT INR POC ABG pH 7.469 H ABG pH POC ABG pCO2 POC ABG pO2 240 H ABG pO2 ABG O2 Saturation ABG Base Excess ABG Hemoglobin Oxyhemoglobin Sodium Potassium Chloride Carbon Dioxide BUN Creatinine Glucose POC Glucose 209 H 195 H Calcium Phosphorus Magnesium Iron TIBC Ferritin Total Bilirubin AST ALT Alkaline Phosphatase Total Creatine Kinase Troponin T C-Reactive Protein Total Protein Albumin Triglycerides HDL Cholesterol Miscellaneous Test Crossmatch 08/29/17 08/29/17 08/29/17 04:30 04:30 12:07 WBC 44.9 H* RBC Hgb Hct MCV MCH RDW 23.1 H Plt Count Lymph % (Auto) [place] % (Auto) [place] # Seg Neutrophils % Seg Neuts % (Manual) 38.0 L Lymphocytes % (Manual) 10.0 L Monocytes % (Manual) 10.0 H Nucleated RBC % 6.0 H Seg Neutrophils # Seg Neutrophils # Man 17.1 H Lymphocytes # (Manual) Monocytes # (Manual) 4.5 H Eosinophils # (Manual) Basophils # (Manual) PT INR POC ABG pH ABG pH POC ABG pCO2 POC ABG pO2 ABG pO2 ABG O2 Saturation ABG Base Excess ABG Hemoglobin Oxyhemoglobin Sodium Potassium Chloride Carbon Dioxide BUN 61 H Creatinine 2.4 H Glucose 226 H POC Glucose 200 H Calcium Phosphorus Magnesium Iron TIBC Ferritin Total Bilirubin AST ALT Alkaline Phosphatase Total Creatine Kinase Troponin T C-Reactive Protein Total Protein Albumin Triglycerides HDL Cholesterol Miscellaneous Test Crossmatch 08/29/17 08/29/17 08/29/17 12:30 12:30 17:23 WBC RBC Hgb Hct MCV MCH RDW Plt Count Lymph % (Auto) [place] % (Auto) [place] # Seg Neutrophils % Seg Neuts % (Manual) Lymphocytes % (Manual) Monocytes % (Manual) Nucleated RBC % Seg Neutrophils # Seg Neutrophils # Man Lymphocytes # (Manual) Monocytes # (Manual) Eosinophils # (Manual) Basophils # (Manual) PT INR POC ABG pH ABG pH POC ABG pCO2 POC ABG pO2 ABG pO2 ABG O2 Saturation ABG Base Excess ABG Hemoglobin Oxyhemoglobin Sodium Potassium Chloride Carbon Dioxide BUN Creatinine Glucose POC Glucose 270 H Calcium Phosphorus Magnesium Iron TIBC Ferritin Total Bilirubin AST ALT Alkaline Phosphatase Total Creatine Kinase Troponin T C-Reactive Protein 19.10 H Total Protein Albumin Triglycerides HDL Cholesterol Miscellaneous Test Flexitest 1 H Crossmatch 08/30/17 08/30/17 08/30/17 00:10 01:30 03:31 WBC RBC Hgb Hct MCV MCH RDW Plt Count Lymph % (Auto) [place] % (Auto) [place] # Seg Neutrophils % Seg Neuts % (Manual) Lymphocytes % (Manual) Monocytes % (Manual) Nucleated RBC % Seg Neutrophils # Seg Neutrophils # Man Lymphocytes # (Manual) Monocytes # (Manual) Eosinophils # (Manual) Basophils # (Manual) PT INR POC ABG pH 7.168 L 7.335 L ABG pH POC ABG pCO2 72.8 H POC ABG pO2 257 H 117 H ABG pO2 ABG O2 Saturation ABG Base Excess ABG Hemoglobin Oxyhemoglobin Sodium Potassium Chloride Carbon Dioxide BUN Creatinine Glucose POC Glucose 245 H Calcium Phosphorus Magnesium Iron TIBC Ferritin Total Bilirubin AST ALT Alkaline Phosphatase Total Creatine Kinase Troponin T C-Reactive Protein Total Protein Albumin Triglycerides HDL Cholesterol Miscellaneous Test Crossmatch 08/30/17 08/30/17 08/30/17 05:20 05:20 05:20 WBC 40.9 H* RBC 3.64 L Hgb Hct MCV MCH RDW 24.3 H Plt Count Lymph % (Auto) [place] % (Auto) [place] # Seg Neutrophils % Seg Neuts % (Manual) 80.0 H Lymphocytes % (Manual) 3.0 L Monocytes % (Manual) Nucleated RBC % 1.0 H Seg Neutrophils # Seg Neutrophils # Man 32.7 H Lymphocytes # (Manual) Monocytes # (Manual) Eosinophils # (Manual) Basophils # (Manual) PT INR POC ABG pH ABG pH POC ABG pCO2 POC ABG pO2 ABG pO2 ABG O2 Saturation ABG Base Excess ABG Hemoglobin Oxyhemoglobin Sodium Potassium Chloride Carbon Dioxide BUN 83 H Creatinine 2.9 H Glucose 334 H POC Glucose 309 H Calcium Phosphorus Magnesium Iron TIBC Ferritin Total Bilirubin AST ALT Alkaline Phosphatase Total Creatine Kinase Troponin T C-Reactive Protein Total Protein Albumin Triglycerides HDL Cholesterol Miscellaneous Test Crossmatch 08/30/17 08/30/17 08/31/17 12:18 17:36 00:17 WBC RBC Hgb Hct MCV MCH RDW Plt Count Lymph % (Auto) [place] % (Auto) [place] # Seg Neutrophils % Seg Neuts % (Manual) Lymphocytes % (Manual) Monocytes % (Manual) Nucleated RBC % Seg Neutrophils # Seg Neutrophils # Man Lymphocytes # (Manual) Monocytes # (Manual) Eosinophils # (Manual) Basophils # (Manual) PT INR POC ABG pH ABG pH POC ABG pCO2 POC ABG pO2 ABG pO2 ABG O2 Saturation ABG Base Excess ABG Hemoglobin Oxyhemoglobin Sodium Potassium Chloride Carbon Dioxide BUN Creatinine Glucose POC Glucose 273 H 293 H 360 H Calcium Phosphorus Magnesium Iron TIBC Ferritin Total Bilirubin AST ALT Alkaline Phosphatase Total Creatine Kinase Troponin T C-Reactive Protein Total Protein Albumin Triglycerides HDL Cholesterol Miscellaneous Test Crossmatch 08/31/17 08/31/17 08/31/17 05:30 05:30 05:32 WBC 29.9 H RBC 2.89 L Hgb 8.2 L Hct 24.7 L D MCV MCH RDW 24.4 H Plt Count Lymph % (Auto) [place] % (Auto) [place] # Seg Neutrophils % Seg Neuts % (Manual) Lymphocytes % (Manual) 2.0 L Monocytes % (Manual) Nucleated RBC % 2.0 H Seg Neutrophils # Seg Neutrophils # Man 18.5 H Lymphocytes # (Manual) 0.6 L Monocytes # (Manual) 0.9 H Eosinophils # (Manual) Basophils # (Manual) PT INR POC ABG pH ABG pH POC ABG pCO2 POC ABG pO2 ABG pO2 ABG O2 Saturation ABG Base Excess ABG Hemoglobin Oxyhemoglobin Sodium Potassium Chloride Carbon Dioxide BUN 62 H Creatinine 2.2 H Glucose 245 H POC Glucose 257 H Calcium Phosphorus 2.10 L D Magnesium 1.60 L Iron TIBC Ferritin Total Bilirubin AST ALT Alkaline Phosphatase Total Creatine Kinase Troponin T C-Reactive Protein Total Protein Albumin Triglycerides HDL Cholesterol Miscellaneous Test Crossmatch 08/31/17 08/31/17 08/31/17 11:56 12:05 18:14 WBC 32.5 H RBC 3.19 L Hgb 8.8 L Hct 27.9 L MCV MCH RDW 24.9 H Plt Count Lymph % (Auto) [place] % (Auto) [place] # Seg Neutrophils % Seg Neuts % (Manual) Lymphocytes % (Manual) 1.0 L Monocytes % (Manual) 12.0 H Nucleated RBC % 1.0 H Seg Neutrophils # Seg Neutrophils # Man 13.3 H Lymphocytes # (Manual) 0.3 L Monocytes # (Manual) 3.9 H Eosinophils # (Manual) Basophils # (Manual) PT INR POC ABG pH ABG pH POC ABG pCO2 POC ABG pO2 ABG pO2 ABG O2 Saturation ABG Base Excess ABG Hemoglobin Oxyhemoglobin Sodium Potassium Chloride Carbon Dioxide BUN Creatinine Glucose POC Glucose 245 H Calcium Phosphorus Magnesium Iron TIBC Ferritin Total Bilirubin AST ALT Alkaline Phosphatase Total Creatine Kinase Troponin T C-Reactive Protein Total Protein Albumin Triglycerides HDL Cholesterol Miscellaneous Test Crossmatch See Detail 08/31/17 08/31/17 08/31/17 18:14 18:15 18:22 WBC RBC Hgb Hct MCV MCH RDW Plt Count Lymph % (Auto) [place] % (Auto) [place] # Seg Neutrophils % Seg Neuts % (Manual) Lymphocytes % (Manual) Monocytes % (Manual) Nucleated RBC % Seg Neutrophils # Seg Neutrophils # Man Lymphocytes # (Manual) Monocytes # (Manual) Eosinophils # (Manual) Basophils # (Manual) PT 15.1 H INR POC ABG pH ABG pH POC ABG pCO2 POC ABG pO2 ABG pO2 ABG O2 Saturation ABG Base Excess ABG Hemoglobin Oxyhemoglobin Sodium 136 L Potassium Chloride Carbon Dioxide 21 L BUN 69 H Creatinine 2.3 H Glucose 227 H POC Glucose 240 H Calcium Phosphorus 2.40 L Magnesium 1.50 L Iron TIBC Ferritin Total Bilirubin AST 143 H ALT 114 H Alkaline Phosphatase 267 H Total Creatine Kinase Troponin T C-Reactive Protein Total Protein 4.1 L Albumin 1.8 L Triglycerides HDL Cholesterol Miscellaneous Test Crossmatch 08/31/17 09/01/17 09/01/17 23:53 05:00 05:00 WBC 33.9 H RBC 2.85 L Hgb 7.8 L Hct 24.8 L MCV MCH 27 L RDW 23.9 H Plt Count Lymph % (Auto) [place] % (Auto) [place] # Seg Neutrophils % Seg Neuts % (Manual) Lymphocytes % (Manual) 5.0 L Monocytes % (Manual) Nucleated RBC % Seg Neutrophils # Seg Neutrophils # Man 23.1 H Lymphocytes # (Manual) Monocytes # (Manual) Eosinophils # (Manual) Basophils # (Manual) PT INR POC ABG pH ABG pH POC ABG pCO2 POC ABG pO2 ABG pO2 ABG O2 Saturation ABG Base Excess ABG Hemoglobin Oxyhemoglobin Sodium Potassium Chloride Carbon Dioxide BUN 51 H Creatinine 1.8 H Glucose 195 H POC Glucose 301 H Calcium Phosphorus 1.70 L D Magnesium 1.60 L Iron TIBC Ferritin Total Bilirubin AST 80 H ALT 82 H Alkaline Phosphatase 243 H Total Creatine Kinase Troponin T C-Reactive Protein Total Protein 4.2 L Albumin 1.7 L Triglycerides HDL Cholesterol Miscellaneous Test Crossmatch 09/01/17 09/01/17 09/01/17 05:20 05:47 11:37 WBC RBC Hgb Hct MCV MCH RDW Plt Count Lymph % (Auto) [place] % (Auto) [place] # Seg Neutrophils % Seg Neuts % (Manual) Lymphocytes % (Manual) Monocytes % (Manual) Nucleated RBC % Seg Neutrophils # Seg Neutrophils # Man Lymphocytes # (Manual) Monocytes # (Manual) Eosinophils # (Manual) Basophils # (Manual) PT INR POC ABG pH ABG pH 7.348 L POC ABG pCO2 POC ABG pO2 ABG pO2 70.2 L ABG O2 Saturation ABG Base Excess ABG Hemoglobin 7.5 L Oxyhemoglobin Sodium Potassium Chloride Carbon Dioxide BUN Creatinine Glucose POC Glucose 230 H 254 H Calcium Phosphorus Magnesium Iron TIBC Ferritin Total Bilirubin AST ALT Alkaline Phosphatase Total Creatine Kinase Troponin T C-Reactive Protein Total Protein Albumin Triglycerides HDL Cholesterol Miscellaneous Test Crossmatch 09/01/17 09/01/17 09/02/17 17:39 23:14 04:55 WBC RBC Hgb Hct MCV MCH RDW Plt Count Lymph % (Auto) [place] % (Auto) [place] # Seg Neutrophils % Seg Neuts % (Manual) Lymphocytes % (Manual) Monocytes % (Manual) Nucleated RBC % Seg Neutrophils # Seg Neutrophils # Man Lymphocytes # (Manual) Monocytes # (Manual) Eosinophils # (Manual) Basophils # (Manual) PT INR POC ABG pH ABG pH POC ABG pCO2 POC ABG pO2 ABG pO2 124.8 H ABG O2 Saturation ABG Base Excess -2.9 L ABG Hemoglobin 5.8 L Oxyhemoglobin Sodium Potassium Chloride Carbon Dioxide BUN Creatinine Glucose POC Glucose 297 H 291 H Calcium Phosphorus Magnesium Iron TIBC Ferritin Total Bilirubin AST ALT Alkaline Phosphatase Total Creatine Kinase Troponin T C-Reactive Protein Total Protein Albumin Triglycerides HDL Cholesterol Miscellaneous Test Crossmatch 09/02/17 09/02/17 09/02/17 05:31 06:10 11:58 WBC RBC Hgb Hct MCV MCH RDW Plt Count Lymph % (Auto) [place] % (Auto) [place] # Seg Neutrophils % Seg Neuts % (Manual) Lymphocytes % (Manual) Monocytes % (Manual) Nucleated RBC % Seg Neutrophils # Seg Neutrophils # Man Lymphocytes # (Manual) Monocytes # (Manual) Eosinophils # (Manual) Basophils # (Manual) PT INR POC ABG pH ABG pH POC ABG pCO2 POC ABG pO2 ABG pO2 ABG O2 Saturation ABG Base Excess ABG Hemoglobin Oxyhemoglobin Sodium Potassium Chloride Carbon Dioxide BUN 68 H Creatinine 2.2 H Glucose 369 H POC Glucose 245 H 333 H Calcium 8.2 L Phosphorus Magnesium Iron TIBC Ferritin Total Bilirubin AST ALT Alkaline Phosphatase Total Creatine Kinase Troponin T C-Reactive Protein Total Protein Albumin Triglycerides HDL Cholesterol Miscellaneous Test Crossmatch 09/02/17 09/02/17 09/03/17 15:37 23:50 04:00 WBC RBC Hgb Hct MCV MCH RDW Plt Count Lymph % (Auto) [place] % (Auto) [place] # Seg Neutrophils % Seg Neuts % (Manual) Lymphocytes % (Manual) Monocytes % (Manual) Nucleated RBC % Seg Neutrophils # Seg Neutrophils # Man Lymphocytes # (Manual) Monocytes # (Manual) Eosinophils # (Manual) Basophils # (Manual) PT INR POC ABG pH ABG pH POC ABG pCO2 POC ABG pO2 ABG pO2 ABG O2 Saturation ABG Base Excess ABG Hemoglobin Oxyhemoglobin Sodium Potassium Chloride Carbon Dioxide BUN 59 H Creatinine 1.9 H Glucose 231 H POC Glucose 314 H 240 H Calcium 8.0 L Phosphorus Magnesium Iron TIBC Ferritin Total Bilirubin AST ALT Alkaline Phosphatase 265 H Total Creatine Kinase Troponin T C-Reactive Protein Total Protein 4.4 L Albumin 1.7 L Triglycerides 180 H HDL Cholesterol Miscellaneous Test Crossmatch 09/03/17 09/03/17 09/03/17 05:00 05:32 11:52 WBC 41.5 H* RBC 2.46 L Hgb 6.9 L Hct 21.3 L MCV MCH RDW 24.9 H Plt Count Lymph % (Auto) [place] % (Auto) [place] # Seg Neutrophils % Seg Neuts % (Manual) Lymphocytes % (Manual) 3.0 L Monocytes % (Manual) 9.5 H Nucleated RBC % 1.5 H Seg Neutrophils # Seg Neutrophils # Man 28.8 H Lymphocytes # (Manual) Monocytes # (Manual) 3.9 H Eosinophils # (Manual) Basophils # (Manual) PT INR POC ABG pH ABG pH POC ABG pCO2 POC ABG pO2 ABG pO2 ABG O2 Saturation ABG Base Excess ABG Hemoglobin Oxyhemoglobin Sodium Potassium Chloride Carbon Dioxide BUN Creatinine Glucose POC Glucose 188 H 285 H Calcium Phosphorus Magnesium Iron TIBC Ferritin Total Bilirubin AST ALT Alkaline Phosphatase Total Creatine Kinase Troponin T C-Reactive Protein Total Protein Albumin Triglycerides HDL Cholesterol Miscellaneous Test Crossmatch 09/03/17 09/03/17 09/03/17 16:55 17:44 23:56 WBC RBC Hgb Hct MCV MCH RDW Plt Count Lymph % (Auto) [place] % (Auto) [place] # Seg Neutrophils % Seg Neuts % (Manual) Lymphocytes % (Manual) Monocytes % (Manual) Nucleated RBC % Seg Neutrophils # Seg Neutrophils # Man Lymphocytes # (Manual) Monocytes # (Manual) Eosinophils # (Manual) Basophils # (Manual) PT INR POC ABG pH ABG pH POC ABG pCO2 POC ABG pO2 ABG pO2 ABG O2 Saturation ABG Base Excess ABG Hemoglobin Oxyhemoglobin Sodium Potassium Chloride Carbon Dioxide BUN Creatinine Glucose POC Glucose 217 H 193 H Calcium Phosphorus Magnesium Iron TIBC Ferritin Total Bilirubin AST ALT Alkaline Phosphatase Total Creatine Kinase Troponin T C-Reactive Protein Total Protein Albumin Triglycerides HDL Cholesterol Miscellaneous Test Crossmatch See Detail 09/03/17 09/04/17 09/04/17 Unknown 03:47 04:32 WBC 44.7 H* RBC 3.12 L Hgb 8.7 L Hct 26.7 L MCV MCH RDW 23.5 H Plt Count Lymph % (Auto) [place] % (Auto) [place] # Seg Neutrophils % Seg Neuts % (Manual) Lymphocytes % (Manual) 4.0 L Monocytes % (Manual) Nucleated RBC % 2.0 H Seg Neutrophils # Seg Neutrophils # Man 30.8 H Lymphocytes # (Manual) Monocytes # (Manual) 2.2 H Eosinophils # (Manual) Basophils # (Manual) PT INR POC ABG pH ABG pH POC ABG pCO2 POC ABG pO2 ABG pO2 133.4 H 135.0 H ABG O2 Saturation ABG Base Excess -2.5 L ABG Hemoglobin 5.8 L 7.9 L Oxyhemoglobin Sodium Potassium Chloride Carbon Dioxide BUN Creatinine Glucose POC Glucose Calcium Phosphorus Magnesium Iron TIBC Ferritin Total Bilirubin AST ALT Alkaline Phosphatase Total Creatine Kinase Troponin T C-Reactive Protein Total Protein Albumin Triglycerides HDL Cholesterol Miscellaneous Test Crossmatch 09/04/17 09/04/17 09/04/17 04:32 05:48 10:43 WBC RBC Hgb Hct MCV MCH RDW Plt Count Lymph % (Auto) [place] % (Auto) [place] # Seg Neutrophils % Seg Neuts % (Manual) Lymphocytes % (Manual) Monocytes % (Manual) Nucleated RBC % Seg Neutrophils # Seg Neutrophils # Man Lymphocytes # (Manual) Monocytes # (Manual) Eosinophils # (Manual) Basophils # (Manual) PT INR POC ABG pH ABG pH POC ABG pCO2 POC ABG pO2 ABG pO2 ABG O2 Saturation ABG Base Excess ABG Hemoglobin Oxyhemoglobin Sodium 136 L Potassium 5.2 H D Chloride 94.2 L Carbon Dioxide BUN 71 H Creatinine 2.3 H Glucose 235 H POC Glucose 329 H Calcium 8.3 L Phosphorus Magnesium Iron TIBC Ferritin Total Bilirubin AST ALT Alkaline Phosphatase Total Creatine Kinase Troponin T C-Reactive Protein Total Protein Albumin Triglycerides HDL Cholesterol Miscellaneous Test Flexitest 1 H Crossmatch 09/04/17 09/04/17 09/05/17 12:38 17:30 00:15 WBC RBC Hgb Hct MCV MCH RDW Plt Count Lymph % (Auto) [place] % (Auto) [place] # Seg Neutrophils % Seg Neuts % (Manual) Lymphocytes % (Manual) Monocytes % (Manual) Nucleated RBC % Seg Neutrophils # Seg Neutrophils # Man Lymphocytes # (Manual) Monocytes # (Manual) Eosinophils # (Manual) Basophils # (Manual) PT INR POC ABG pH ABG pH POC ABG pCO2 POC ABG pO2 ABG pO2 ABG O2 Saturation ABG Base Excess ABG Hemoglobin Oxyhemoglobin Sodium Potassium Chloride Carbon Dioxide BUN Creatinine Glucose POC Glucose 444 H 331 H 362 H Calcium Phosphorus Magnesium Iron TIBC Ferritin Total Bilirubin AST ALT Alkaline Phosphatase Total Creatine Kinase Troponin T C-Reactive Protein Total Protein Albumin Triglycerides HDL Cholesterol Miscellaneous Test Crossmatch 09/05/17 09/05/17 09/05/17 03:55 03:55 12:12 WBC 35.3 H RBC 2.87 L Hgb 8.1 L Hct 24.6 L MCV MCH RDW 23.3 H Plt Count Lymph % (Auto) [place] % (Auto) [place] # Seg Neutrophils % Seg Neuts % (Manual) 89.5 H Lymphocytes % (Manual) 3.0 L Monocytes % (Manual) Nucleated RBC % 2.5 H Seg Neutrophils # Seg Neutrophils # Man 31.6 H Lymphocytes # (Manual) 1.1 L Monocytes # (Manual) Eosinophils # (Manual) Basophils # (Manual) PT INR POC ABG pH ABG pH POC ABG pCO2 POC ABG pO2 ABG pO2 ABG O2 Saturation ABG Base Excess ABG Hemoglobin Oxyhemoglobin Sodium 136 L Potassium Chloride 94.7 L Carbon Dioxide BUN 55 H Creatinine 1.8 H Glucose 193 H POC Glucose 344 H Calcium 8.1 L Phosphorus Magnesium Iron TIBC Ferritin Total Bilirubin AST ALT Alkaline Phosphatase Total Creatine Kinase Troponin T C-Reactive Protein Total Protein Albumin Triglycerides HDL Cholesterol Miscellaneous Test Crossmatch 09/05/17 09/05/17 09/05/17 14:32 15:32 16:41 WBC RBC Hgb Hct MCV MCH RDW Plt Count Lymph % (Auto) [place] % (Auto) [place] # Seg Neutrophils % Seg Neuts % (Manual) Lymphocytes % (Manual) Monocytes % (Manual) Nucleated RBC % Seg Neutrophils # Seg Neutrophils # Man Lymphocytes # (Manual) Monocytes # (Manual) Eosinophils # (Manual) Basophils # (Manual) PT INR POC ABG pH ABG pH POC ABG pCO2 POC ABG pO2 ABG pO2 ABG O2 Saturation ABG Base Excess ABG Hemoglobin Oxyhemoglobin Sodium Potassium Chloride Carbon Dioxide BUN Creatinine Glucose POC Glucose 265 H 145 H 188 H Calcium Phosphorus Magnesium Iron TIBC Ferritin Total Bilirubin AST ALT Alkaline Phosphatase Total Creatine Kinase Troponin T C-Reactive Protein Total Protein Albumin Triglycerides HDL Cholesterol Miscellaneous Test Crossmatch 09/05/17 09/05/17 09/05/17 17:28 18:38 20:10 WBC RBC Hgb Hct MCV MCH RDW Plt Count Lymph % (Auto) [place] % (Auto) [place] # Seg Neutrophils % Seg Neuts % (Manual) Lymphocytes % (Manual) Monocytes % (Manual) Nucleated RBC % Seg Neutrophils # Seg Neutrophils # Man Lymphocytes # (Manual) Monocytes # (Manual) Eosinophils # (Manual) Basophils # (Manual) PT INR POC ABG pH ABG pH POC ABG pCO2 POC ABG pO2 ABG pO2 ABG O2 Saturation ABG Base Excess ABG Hemoglobin Oxyhemoglobin Sodium Potassium Chloride Carbon Dioxide BUN Creatinine Glucose POC Glucose 246 H 271 H 165 H Calcium Phosphorus Magnesium Iron TIBC Ferritin Total Bilirubin AST ALT Alkaline Phosphatase Total Creatine Kinase Troponin T C-Reactive Protein Total Protein Albumin Triglycerides HDL Cholesterol Miscellaneous Test Crossmatch 09/05/17 09/05/17 09/06/17 21:06 23:07 00:10 WBC RBC Hgb Hct MCV MCH RDW Plt Count Lymph % (Auto) [place] % (Auto) [place] # Seg Neutrophils % Seg Neuts % (Manual) Lymphocytes % (Manual) Monocytes % (Manual) Nucleated RBC % Seg Neutrophils # Seg Neutrophils # Man Lymphocytes # (Manual) Monocytes # (Manual) Eosinophils # (Manual) Basophils # (Manual) PT INR POC ABG pH ABG pH POC ABG pCO2 POC ABG pO2 ABG pO2 ABG O2 Saturation ABG Base Excess ABG Hemoglobin Oxyhemoglobin Sodium Potassium Chloride Carbon Dioxide BUN Creatinine Glucose POC Glucose 134 H 135 H 147 H Calcium Phosphorus Magnesium Iron TIBC Ferritin Total Bilirubin AST ALT Alkaline Phosphatase Total Creatine Kinase Troponin T C-Reactive Protein Total Protein Albumin Triglycerides HDL Cholesterol Miscellaneous Test Crossmatch 09/06/17 09/06/17 09/06/17 01:08 02:01 03:08 WBC RBC Hgb Hct MCV MCH RDW Plt Count Lymph % (Auto) [place] % (Auto) [place] # Seg Neutrophils % Seg Neuts % (Manual) Lymphocytes % (Manual) Monocytes % (Manual) Nucleated RBC % Seg Neutrophils # Seg Neutrophils # Man Lymphocytes # (Manual) Monocytes # (Manual) Eosinophils # (Manual) Basophils # (Manual) PT INR POC ABG pH ABG pH POC ABG pCO2 POC ABG pO2 ABG pO2 ABG O2 Saturation ABG Base Excess ABG Hemoglobin Oxyhemoglobin Sodium Potassium Chloride Carbon Dioxide BUN Creatinine Glucose POC Glucose 133 H 146 H 135 H Calcium Phosphorus Magnesium Iron TIBC Ferritin Total Bilirubin AST ALT Alkaline Phosphatase Total Creatine Kinase Troponin T C-Reactive Protein Total Protein Albumin Triglycerides HDL Cholesterol Miscellaneous Test Crossmatch 09/06/17 09/06/17 09/06/17 05:30 05:30 05:30 WBC 38.6 H RBC 2.95 L Hgb 8.3 L Hct 25.3 L MCV MCH RDW 22.2 H Plt Count Lymph % (Auto) [place] % (Auto) [place] # Seg Neutrophils % Seg Neuts % (Manual) Lymphocytes % (Manual) 2.0 L Monocytes % (Manual) Nucleated RBC % 5.0 H Seg Neutrophils # Seg Neutrophils # Man 25.9 H Lymphocytes # (Manual) 0.8 L Monocytes # (Manual) 1.9 H Eosinophils # (Manual) Basophils # (Manual) PT INR POC ABG pH ABG pH POC ABG pCO2 POC ABG pO2 ABG pO2 ABG O2 Saturation ABG Base Excess ABG Hemoglobin Oxyhemoglobin Sodium 135 L Potassium Chloride 93.5 L Carbon Dioxide BUN 82 H Creatinine 2.3 H Glucose 148 H POC Glucose Calcium Phosphorus Magnesium Iron TIBC Ferritin Total Bilirubin AST ALT Alkaline Phosphatase Total Creatine Kinase Troponin T C-Reactive Protein 2.80 H Total Protein Albumin Triglycerides HDL Cholesterol Miscellaneous Test Crossmatch 09/06/17 09/06/17 09/06/17 05:48 08:04 09:06 WBC RBC Hgb Hct MCV MCH RDW Plt Count Lymph % (Auto) [place] % (Auto) [place] # Seg Neutrophils % Seg Neuts % (Manual) Lymphocytes % (Manual) Monocytes % (Manual) Nucleated RBC % Seg Neutrophils # Seg Neutrophils # Man Lymphocytes # (Manual) Monocytes # (Manual) Eosinophils # (Manual) Basophils # (Manual) PT INR POC ABG pH ABG pH POC ABG pCO2 POC ABG pO2 ABG pO2 ABG O2 Saturation ABG Base Excess ABG Hemoglobin Oxyhemoglobin Sodium Potassium Chloride Carbon Dioxide BUN Creatinine Glucose POC Glucose 152 H 164 H 172 H Calcium Phosphorus Magnesium Iron TIBC Ferritin Total Bilirubin AST ALT Alkaline Phosphatase Total Creatine Kinase Troponin T C-Reactive Protein Total Protein Albumin Triglycerides HDL Cholesterol Miscellaneous Test Crossmatch 09/06/17 09/06/17 09/06/17 09:57 10:19 10:57 WBC RBC Hgb Hct MCV MCH RDW Plt Count Lymph % (Auto) [place] % (Auto) [place] # Seg Neutrophils % Seg Neuts % (Manual) Lymphocytes % (Manual) Monocytes % (Manual) Nucleated RBC % Seg Neutrophils # Seg Neutrophils # Man Lymphocytes # (Manual) Monocytes # (Manual) Eosinophils # (Manual) Basophils # (Manual) PT INR POC ABG pH ABG pH POC ABG pCO2 POC ABG pO2 ABG pO2 ABG O2 Saturation ABG Base Excess ABG Hemoglobin Oxyhemoglobin Sodium Potassium Chloride Carbon Dioxide BUN Creatinine Glucose POC Glucose 186 H 162 H Calcium Phosphorus Magnesium Iron TIBC Ferritin Total Bilirubin AST ALT Alkaline Phosphatase Total Creatine Kinase Troponin T C-Reactive Protein Total Protein Albumin Triglycerides HDL Cholesterol Miscellaneous Test Flexitest 1 H Crossmatch 09/06/17 09/06/17 09/06/17 13:12 13:40 17:36 WBC RBC Hgb 8.9 L Hct 28.5 L MCV MCH RDW Plt Count Lymph % (Auto) [place] % (Auto) [place] # Seg Neutrophils % Seg Neuts % (Manual) Lymphocytes % (Manual) Monocytes % (Manual) Nucleated RBC % Seg Neutrophils # Seg Neutrophils # Man Lymphocytes # (Manual) Monocytes # (Manual) Eosinophils # (Manual) Basophils # (Manual) PT INR POC ABG pH ABG pH POC ABG pCO2 POC ABG pO2 ABG pO2 ABG O2 Saturation ABG Base Excess ABG Hemoglobin Oxyhemoglobin Sodium Potassium Chloride Carbon Dioxide BUN Creatinine Glucose POC Glucose 166 H 161 H Calcium Phosphorus Magnesium Iron TIBC Ferritin Total Bilirubin AST ALT Alkaline Phosphatase Total Creatine Kinase Troponin T C-Reactive Protein Total Protein Albumin Triglycerides HDL Cholesterol Miscellaneous Test Crossmatch 09/07/17 09/07/17 09/07/17 00:13 03:50 03:50 WBC 47.0 H* RBC 2.81 L Hgb 8.1 L Hct 24.1 L MCV MCH RDW 22.5 H Plt Count Lymph % (Auto) [place] % (Auto) [place] # Seg Neutrophils % Seg Neuts % (Manual) Lymphocytes % (Manual) 9.0 L Monocytes % (Manual) Nucleated RBC % 6.0 H Seg Neutrophils # Seg Neutrophils # Man 27.3 H Lymphocytes # (Manual) Monocytes # (Manual) 0.9 H Eosinophils # (Manual) 1.9 H Basophils # (Manual) PT INR POC ABG pH ABG pH POC ABG pCO2 POC ABG pO2 ABG pO2 ABG O2 Saturation ABG Base Excess ABG Hemoglobin Oxyhemoglobin Sodium 136 L Potassium Chloride 96.3 L Carbon Dioxide BUN 61 H Creatinine 1.7 H Glucose 132 H POC Glucose 183 H Calcium 7.8 L Phosphorus Magnesium Iron TIBC Ferritin Total Bilirubin AST ALT Alkaline Phosphatase Total Creatine Kinase Troponin T C-Reactive Protein Total Protein Albumin Triglycerides HDL Cholesterol Miscellaneous Test Crossmatch 09/07/17 09/07/17 09/07/17 05:12 05:23 11:48 WBC RBC Hgb Hct MCV MCH RDW Plt Count Lymph % (Auto) [place] % (Auto) [place] # Seg Neutrophils % Seg Neuts % (Manual) Lymphocytes % (Manual) Monocytes % (Manual) Nucleated RBC % Seg Neutrophils # Seg Neutrophils # Man Lymphocytes # (Manual) Monocytes # (Manual) Eosinophils # (Manual) Basophils # (Manual) PT INR POC ABG pH ABG pH POC ABG pCO2 POC ABG pO2 ABG pO2 ABG O2 Saturation ABG Base Excess ABG Hemoglobin 7.7 L Oxyhemoglobin 94.8 L Sodium Potassium Chloride Carbon Dioxide BUN Creatinine Glucose POC Glucose 162 H 200 H Calcium Phosphorus Magnesium Iron TIBC Ferritin Total Bilirubin AST ALT Alkaline Phosphatase Total Creatine Kinase Troponin T C-Reactive Protein Total Protein Albumin Triglycerides HDL Cholesterol Miscellaneous Test Crossmatch 09/07/17 09/07/17 09/08/17 17:07 18:21 00:06 WBC RBC Hgb Hct MCV MCH RDW Plt Count Lymph % (Auto) [place] % (Auto) [place] # Seg Neutrophils % Seg Neuts % (Manual) Lymphocytes % (Manual) Monocytes % (Manual) Nucleated RBC % Seg Neutrophils # Seg Neutrophils # Man Lymphocytes # (Manual) Monocytes # (Manual) Eosinophils # (Manual) Basophils # (Manual) PT INR POC ABG pH ABG pH POC ABG pCO2 POC ABG pO2 ABG pO2 ABG O2 Saturation ABG Base Excess ABG Hemoglobin Oxyhemoglobin Sodium Potassium Chloride Carbon Dioxide BUN Creatinine Glucose POC Glucose 181 H 168 H Calcium Phosphorus Magnesium Iron TIBC Ferritin Total Bilirubin AST ALT Alkaline Phosphatase Total Creatine Kinase Troponin T C-Reactive Protein Total Protein Albumin Triglycerides HDL Cholesterol Miscellaneous Test Crossmatch See Detail 09/08/17 09/08/17 09/08/17 04:05 04:05 04:41 WBC 49.7 H* RBC 2.58 L Hgb 7.3 L Hct 22.7 L MCV MCH RDW 22.5 H Plt Count Lymph % (Auto) [place] % (Auto) [place] # Seg Neutrophils % Seg Neuts % (Manual) 90.5 H Lymphocytes % (Manual) 1.5 L Monocytes % (Manual) Nucleated RBC % Seg Neutrophils # Seg Neutrophils # Man 45.0 H Lymphocytes # (Manual) 0.7 L Monocytes # (Manual) 1.7 H Eosinophils # (Manual) Basophils # (Manual) PT INR POC ABG pH ABG pH POC ABG pCO2 POC ABG pO2 ABG pO2 ABG O2 Saturation ABG Base Excess ABG Hemoglobin Oxyhemoglobin Sodium 132 L Potassium Chloride 92.1 L Carbon Dioxide BUN 82 H Creatinine 2.2 H Glucose 162 H POC Glucose 235 H Calcium 8.3 L Phosphorus 5.20 H D Magnesium Iron TIBC Ferritin Total Bilirubin AST ALT Alkaline Phosphatase 199 H Total Creatine Kinase Troponin T C-Reactive Protein Total Protein 4.5 L Albumin 1.7 L Triglycerides HDL Cholesterol Miscellaneous Test Crossmatch 09/08/17 09/08/17 09/08/17 09:21 11:52 17:38 WBC RBC Hgb Hct MCV MCH RDW Plt Count Lymph % (Auto) [place] % (Auto) [place] # Seg Neutrophils % Seg Neuts % (Manual) Lymphocytes % (Manual) Monocytes % (Manual) Nucleated RBC % Seg Neutrophils # Seg Neutrophils # Man Lymphocytes # (Manual) Monocytes # (Manual) Eosinophils # (Manual) Basophils # (Manual) PT INR POC ABG pH ABG pH POC ABG pCO2 POC ABG pO2 ABG pO2 218.5 H ABG O2 Saturation 99.3 H ABG Base Excess -3.5 L ABG Hemoglobin 7.7 L Oxyhemoglobin Sodium Potassium Chloride Carbon Dioxide BUN Creatinine Glucose POC Glucose 220 H 194 H Calcium Phosphorus Magnesium Iron TIBC Ferritin Total Bilirubin AST ALT Alkaline Phosphatase Total Creatine Kinase Troponin T C-Reactive Protein Total Protein Albumin Triglycerides HDL Cholesterol Miscellaneous Test Crossmatch 09/09/17 09/09/17 09/09/17 00:24 03:37 03:37 WBC 33.5 H RBC 2.36 L Hgb 6.7 L Hct 20.9 L MCV MCH RDW 22.7 H Plt Count Lymph % (Auto) [place] % (Auto) [place] # Seg Neutrophils % Seg Neuts % (Manual) Lymphocytes % (Manual) Monocytes % (Manual) Nucleated RBC % Seg Neutrophils # Seg Neutrophils # Man Lymphocytes # (Manual) Monocytes # (Manual) Eosinophils # (Manual) Basophils # (Manual) PT INR POC ABG pH ABG pH POC ABG pCO2 POC ABG pO2 ABG pO2 ABG O2 Saturation ABG Base Excess ABG Hemoglobin Oxyhemoglobin Sodium 132 L Potassium Chloride 91.6 L Carbon Dioxide 21 L BUN 101 H Creatinine 2.6 H Glucose 156 H POC Glucose 182 H Calcium 8.3 L Phosphorus 5.90 H Magnesium 2.60 H Iron TIBC Ferritin Total Bilirubin AST ALT Alkaline Phosphatase Total Creatine Kinase Troponin T C-Reactive Protein Total Protein Albumin Triglycerides HDL Cholesterol Miscellaneous Test Crossmatch 09/09/17 09/09/17 09/09/17 05:29 12:03 18:05 WBC RBC Hgb Hct MCV MCH RDW Plt Count Lymph % (Auto) [place] % (Auto) [place] # Seg Neutrophils % Seg Neuts % (Manual) Lymphocytes % (Manual) Monocytes % (Manual) Nucleated RBC % Seg Neutrophils # Seg Neutrophils # Man Lymphocytes # (Manual) Monocytes # (Manual) Eosinophils # (Manual) Basophils # (Manual) PT INR POC ABG pH ABG pH POC ABG pCO2 POC ABG pO2 ABG pO2 ABG O2 Saturation ABG Base Excess ABG Hemoglobin Oxyhemoglobin Sodium Potassium Chloride Carbon Dioxide BUN Creatinine Glucose POC Glucose 168 H 143 H 173 H Calcium Phosphorus Magnesium Iron TIBC Ferritin Total Bilirubin AST ALT Alkaline Phosphatase Total Creatine Kinase Troponin T C-Reactive Protein Total Protein Albumin Triglycerides HDL Cholesterol Miscellaneous Test Crossmatch 09/09/17 09/09/17 09/10/17 23:30 Unknown 05:04 WBC RBC Hgb Hct MCV MCH RDW Plt Count Lymph % (Auto) [place] % (Auto) [place] # Seg Neutrophils % Seg Neuts % (Manual) Lymphocytes % (Manual) Monocytes % (Manual) Nucleated RBC % Seg Neutrophils # Seg Neutrophils # Man Lymphocytes # (Manual) Monocytes # (Manual) Eosinophils # (Manual) Basophils # (Manual) PT INR POC ABG pH ABG pH 7.323 L POC ABG pCO2 POC ABG pO2 ABG pO2 94.1 H ABG O2 Saturation ABG Base Excess -4.8 L ABG Hemoglobin 8.0 L Oxyhemoglobin 94.9 L Sodium Potassium Chloride Carbon Dioxide BUN Creatinine Glucose POC Glucose 212 H 155 H Calcium Phosphorus Magnesium Iron TIBC Ferritin Total Bilirubin AST ALT Alkaline Phosphatase Total Creatine Kinase Troponin T C-Reactive Protein Total Protein Albumin Triglycerides HDL Cholesterol Miscellaneous Test Crossmatch 09/10/17 09/10/17 09/10/17 07:00 09:55 12:22 WBC 24.7 H RBC 2.62 L Hgb 7.5 L Hct 22.5 L MCV MCH RDW 20.8 H Plt Count Lymph % (Auto) [place] % (Auto) [place] # Seg Neutrophils % Seg Neuts % (Manual) Lymphocytes % (Manual) Monocytes % (Manual) Nucleated RBC % Seg Neutrophils # Seg Neutrophils # Man Lymphocytes # (Manual) Monocytes # (Manual) Eosinophils # (Manual) Basophils # (Manual) PT INR POC ABG pH ABG pH POC ABG pCO2 POC ABG pO2 ABG pO2 ABG O2 Saturation ABG Base Excess ABG Hemoglobin Oxyhemoglobin Sodium Potassium Chloride 97.9 L Carbon Dioxide BUN 78 H Creatinine 2.0 H Glucose 126 H POC Glucose 183 H Calcium 8.2 L Phosphorus Magnesium Iron TIBC Ferritin Total Bilirubin AST ALT Alkaline Phosphatase Total Creatine Kinase Troponin T C-Reactive Protein Total Protein Albumin Triglycerides HDL Cholesterol Miscellaneous Test Crossmatch 09/11/17 09/11/17 09/11/17 00:08 03:50 05:28 WBC 21.6 H RBC 2.52 L Hgb 7.4 L Hct 22.2 L MCV MCH RDW 21.5 H Plt Count Lymph % (Auto) [place] % (Auto) [place] # Seg Neutrophils % Seg Neuts % (Manual) 92.0 H Lymphocytes % (Manual) 3.0 L Monocytes % (Manual) Nucleated RBC % Seg Neutrophils # Seg Neutrophils # Man 19.9 H Lymphocytes # (Manual) 0.6 L Monocytes # (Manual) Eosinophils # (Manual) Basophils # (Manual) PT INR POC ABG pH ABG pH POC ABG pCO2 POC ABG pO2 ABG pO2 ABG O2 Saturation ABG Base Excess ABG Hemoglobin Oxyhemoglobin Sodium Potassium Chloride Carbon Dioxide BUN Creatinine Glucose POC Glucose 213 H 181 H Calcium Phosphorus Magnesium Iron TIBC Ferritin Total Bilirubin AST ALT Alkaline Phosphatase Total Creatine Kinase Troponin T C-Reactive Protein Total Protein Albumin Triglycerides HDL Cholesterol Miscellaneous Test Crossmatch 09/11/17 09/11/17 09/11/17 11:55 17:56 23:12 WBC RBC Hgb Hct MCV MCH RDW Plt Count Lymph % (Auto) [place] % (Auto) [place] # Seg Neutrophils % Seg Neuts % (Manual) Lymphocytes % (Manual) Monocytes % (Manual) Nucleated RBC % Seg Neutrophils # Seg Neutrophils # Man Lymphocytes # (Manual) Monocytes # (Manual) Eosinophils # (Manual) Basophils # (Manual) PT INR POC ABG pH ABG pH POC ABG pCO2 POC ABG pO2 ABG pO2 ABG O2 Saturation ABG Base Excess ABG Hemoglobin Oxyhemoglobin Sodium Potassium Chloride Carbon Dioxide 21 L BUN 80 H Creatinine 2.1 H Glucose 170 H POC Glucose 277 H 206 H Calcium 8.0 L Phosphorus Magnesium Iron TIBC Ferritin Total Bilirubin AST ALT Alkaline Phosphatase Total Creatine Kinase Troponin T C-Reactive Protein Total Protein Albumin Triglycerides HDL Cholesterol Miscellaneous Test Crossmatch 09/11/17 09/12/17 09/12/17 23:36 05:25 05:25 WBC 17.4 H RBC 2.29 L Hgb 6.7 L Hct 20.4 L MCV MCH RDW 21.2 H Plt Count Lymph % (Auto) [place] % (Auto) [place] # Seg Neutrophils % Seg Neuts % (Manual) 79.0 H Lymphocytes % (Manual) 5.0 L Monocytes % (Manual) Nucleated RBC % 1.0 H Seg Neutrophils # Seg Neutrophils # Man 13.7 H Lymphocytes # (Manual) 0.9 L Monocytes # (Manual) 1.2 H Eosinophils # (Manual) Basophils # (Manual) PT INR POC ABG pH ABG pH POC ABG pCO2 POC ABG pO2 ABG pO2 ABG O2 Saturation ABG Base Excess ABG Hemoglobin Oxyhemoglobin Sodium Potassium Chloride Carbon Dioxide BUN Creatinine Glucose POC Glucose 190 H Calcium Phosphorus Magnesium Iron 22 L TIBC 81 L Ferritin Total Bilirubin AST ALT Alkaline Phosphatase Total Creatine Kinase Troponin T C-Reactive Protein Total Protein Albumin Triglycerides HDL Cholesterol Miscellaneous Test Crossmatch 09/12/17 09/12/17 09/12/17 05:25 05:36 09:14 WBC RBC Hgb Hct MCV MCH RDW Plt Count Lymph % (Auto) [place] % (Auto) [place] # Seg Neutrophils % Seg Neuts % (Manual) Lymphocytes % (Manual) Monocytes % (Manual) Nucleated RBC % Seg Neutrophils # Seg Neutrophils # Man Lymphocytes # (Manual) Monocytes # (Manual) Eosinophils # (Manual) Basophils # (Manual) PT INR POC ABG pH ABG pH POC ABG pCO2 POC ABG pO2 ABG pO2 ABG O2 Saturation ABG Base Excess ABG Hemoglobin Oxyhemoglobin Sodium Potassium Chloride Carbon Dioxide BUN Creatinine Glucose POC Glucose 141 H Calcium Phosphorus Magnesium Iron TIBC Ferritin > 2000.0 H Total Bilirubin AST ALT Alkaline Phosphatase Total Creatine Kinase Troponin T C-Reactive Protein Total Protein Albumin Triglycerides HDL Cholesterol Miscellaneous Test Crossmatch See Detail 09/12/17 09/12/17 09/12/17 11:18 15:22 17:18 WBC RBC Hgb 8.5 L Hct 25.4 L MCV MCH RDW Plt Count Lymph % (Auto) [place] % (Auto) [place] # Seg Neutrophils % Seg Neuts % (Manual) Lymphocytes % (Manual) Monocytes % (Manual) Nucleated RBC % Seg Neutrophils # Seg Neutrophils # Man Lymphocytes # (Manual) Monocytes # (Manual) Eosinophils # (Manual) Basophils # (Manual) PT INR POC ABG pH ABG pH POC ABG pCO2 POC ABG pO2 ABG pO2 ABG O2 Saturation ABG Base Excess ABG Hemoglobin Oxyhemoglobin Sodium Potassium Chloride Carbon Dioxide BUN Creatinine Glucose POC Glucose 262 H 193 H Calcium Phosphorus Magnesium Iron TIBC Ferritin Total Bilirubin AST ALT Alkaline Phosphatase Total Creatine Kinase Troponin T C-Reactive Protein Total Protein Albumin Triglycerides HDL Cholesterol Miscellaneous Test Crossmatch 10/09/13/17 09/13/17 00:05 06:25 11:36 WBC RBC Hgb Hct MCV MCH RDW Plt Count Lymph % (Auto) [place] % (Auto) [place] # Seg Neutrophils % Seg Neuts % (Manual) Lymphocytes % (Manual) Monocytes % (Manual) Nucleated RBC % Seg Neutrophils # Seg Neutrophils # Man Lymphocytes # (Manual) Monocytes # (Manual) Eosinophils # (Manual) Basophils # (Manual) PT INR POC ABG pH 7.347 L ABG pH POC ABG pCO2 34.3 L POC ABG pO2 134 H ABG pO2 ABG O2 Saturation ABG Base Excess ABG Hemoglobin Oxyhemoglobin Sodium Potassium Chloride Carbon Dioxide BUN Creatinine Glucose POC Glucose 235 H 286 H Calcium Phosphorus Magnesium Iron TIBC Ferritin Total Bilirubin AST ALT Alkaline Phosphatase Total Creatine Kinase Troponin T C-Reactive Protein Total Protein Albumin Triglycerides HDL Cholesterol Miscellaneous Test Crossmatch 09/13/17 09/13/17 09/13/17 11:56 17:25 23:18 WBC RBC Hgb Hct MCV MCH RDW Plt Count Lymph % (Auto) [place] % (Auto) [place] # Seg Neutrophils % Seg Neuts % (Manual) Lymphocytes % (Manual) Monocytes % (Manual) Nucleated RBC % Seg Neutrophils # Seg Neutrophils # Man Lymphocytes # (Manual) Monocytes # (Manual) Eosinophils # (Manual) Basophils # (Manual) PT INR POC ABG pH ABG pH POC ABG pCO2 POC ABG pO2 ABG pO2 ABG O2 Saturation ABG Base Excess ABG Hemoglobin Oxyhemoglobin Sodium Potassium Chloride Carbon Dioxide BUN Creatinine Glucose POC Glucose 318 H 278 H 230 H Calcium Phosphorus Magnesium Iron TIBC Ferritin Total Bilirubin AST ALT Alkaline Phosphatase Total Creatine Kinase Troponin T C-Reactive Protein Total Protein Albumin Triglycerides HDL Cholesterol Miscellaneous Test Crossmatch 09/13/17 09/13/17 09/13/17 Unknown Unknown Unknown WBC 15.6 H RBC 2.72 L Hgb 8.1 L Hct 23.9 L MCV MCH RDW 19.5 H Plt Count 137 L Lymph % (Auto) [place] % (Auto) [place] # Seg Neutrophils % Seg Neuts % (Manual) 73.0 H Lymphocytes % (Manual) 3.0 L Monocytes % (Manual) 19.0 H Nucleated RBC % 2.0 H Seg Neutrophils # Seg Neutrophils # Man 11.4 H Lymphocytes # (Manual) 0.5 L Monocytes # (Manual) 3.0 H Eosinophils # (Manual) Basophils # (Manual) PT INR POC ABG pH ABG pH POC ABG pCO2 POC ABG pO2 ABG pO2 ABG O2 Saturation ABG Base Excess ABG Hemoglobin Oxyhemoglobin Sodium Potassium Chloride Carbon Dioxide 19 L BUN 103 H Creatinine 2.6 H Glucose 173 H POC Glucose Calcium Phosphorus Magnesium Iron TIBC Ferritin Total Bilirubin AST ALT Alkaline Phosphatase Total Creatine Kinase Troponin T C-Reactive Protein Total Protein Albumin < 0.2 L Triglycerides HDL Cholesterol Miscellaneous Test Crossmatch 09/14/17 09/14/17 09/14/17 03:15 03:15 05:16 WBC 12.5 H RBC 2.55 L Hgb 7.6 L Hct 22.5 L MCV MCH RDW 19.8 H Plt Count 139 L Lymph % (Auto) [place] % (Auto) [place] # Seg Neutrophils % Seg Neuts % (Manual) Lymphocytes % (Manual) Monocytes % (Manual) Nucleated RBC % Seg Neutrophils # Seg Neutrophils # Man Lymphocytes # (Manual) Monocytes # (Manual) Eosinophils # (Manual) Basophils # (Manual) PT INR POC ABG pH ABG pH POC ABG pCO2 POC ABG pO2 ABG pO2 ABG O2 Saturation ABG Base Excess ABG Hemoglobin Oxyhemoglobin Sodium Potassium Chloride Carbon Dioxide BUN 75 H Creatinine 2.1 H Glucose 217 H POC Glucose 283 H Calcium Phosphorus 2.20 L D Magnesium Iron TIBC Ferritin Total Bilirubin AST ALT Alkaline Phosphatase Total Creatine Kinase Troponin T C-Reactive Protein Total Protein Albumin Triglycerides HDL Cholesterol Miscellaneous Test Crossmatch 09/14/17 09/14/17 09/15/17 12:11 17:47 00:03 WBC RBC Hgb Hct MCV MCH RDW Plt Count Lymph % (Auto) [place] % (Auto) [place] # Seg Neutrophils % Seg Neuts % (Manual) Lymphocytes % (Manual) Monocytes % (Manual) Nucleated RBC % Seg Neutrophils # Seg Neutrophils # Man Lymphocytes # (Manual) Monocytes # (Manual) Eosinophils # (Manual) Basophils # (Manual) PT INR POC ABG pH ABG pH POC ABG pCO2 POC ABG pO2 ABG pO2 ABG O2 Saturation ABG Base Excess ABG Hemoglobin Oxyhemoglobin Sodium Potassium Chloride Carbon Dioxide BUN Creatinine Glucose POC Glucose 251 H 289 H 229 H Calcium Phosphorus Magnesium Iron TIBC Ferritin Total Bilirubin AST ALT Alkaline Phosphatase Total Creatine Kinase Troponin T C-Reactive Protein Total Protein Albumin Triglycerides HDL Cholesterol Miscellaneous Test Crossmatch 09/15/17 09/15/17 09/15/17 05:00 05:00 05:30 WBC 11.7 H RBC 2.50 L Hgb 7.4 L Hct 22.7 L MCV MCH RDW 20.5 H Plt Count Lymph % (Auto) [place] % (Auto) [place] # Seg Neutrophils % Seg Neuts % (Manual) Lymphocytes % (Manual) 11.0 L Monocytes % (Manual) 11.0 H Nucleated RBC % Seg Neutrophils # Seg Neutrophils # Man Lymphocytes # (Manual) Monocytes # (Manual) 1.3 H Eosinophils # (Manual) Basophils # (Manual) PT INR POC ABG pH ABG pH POC ABG pCO2 POC ABG pO2 ABG pO2 ABG O2 Saturation ABG Base Excess ABG Hemoglobin Oxyhemoglobin Sodium Potassium Chloride 97.0 L Carbon Dioxide 21 L BUN 94 H Creatinine 2.4 H Glucose 194 H POC Glucose 225 H Calcium Phosphorus Magnesium Iron TIBC Ferritin Total Bilirubin AST ALT Alkaline Phosphatase Total Creatine Kinase Troponin T C-Reactive Protein Total Protein Albumin Triglycerides HDL Cholesterol Miscellaneous Test Crossmatch 09/15/17 09/15/17 09/15/17 07:48 11:38 12:45 WBC RBC 1.93 L Hgb 5.7 L* Hct 17.1 L* MCV MCH RDW 20.2 H Plt Count 125 L Lymph % (Auto) [place] % (Auto) [place] # Seg Neutrophils % Seg Neuts % (Manual) 79.0 H Lymphocytes % (Manual) 8.0 L Monocytes % (Manual) Nucleated RBC % Seg Neutrophils # Seg Neutrophils # Man Lymphocytes # (Manual) 0.8 L Monocytes # (Manual) Eosinophils # (Manual) Basophils # (Manual) PT INR POC ABG pH ABG pH POC ABG pCO2 POC ABG pO2 ABG pO2 ABG O2 Saturation ABG Base Excess ABG Hemoglobin Oxyhemoglobin Sodium Potassium Chloride Carbon Dioxide BUN Creatinine Glucose POC Glucose 245 H 253 H Calcium Phosphorus Magnesium Iron TIBC Ferritin Total Bilirubin AST ALT Alkaline Phosphatase Total Creatine Kinase Troponin T C-Reactive Protein Total Protein Albumin Triglycerides HDL Cholesterol Miscellaneous Test Crossmatch 09/15/17 09/15/17 09/15/17 12:45 12:45 22:25 WBC 19.6 H RBC 3.32 L Hgb 10.0 L D Hct 29.3 L D MCV MCH RDW 17.0 H Plt Count 123 L Lymph % (Auto) [place] % (Auto) [place] # Seg Neutrophils % Seg Neuts % (Manual) Lymphocytes % (Manual) 12.0 L Monocytes % (Manual) Nucleated RBC % 5.0 H Seg Neutrophils # Seg Neutrophils # Man 11.0 H Lymphocytes # (Manual) Monocytes # (Manual) 1.2 H Eosinophils # (Manual) Basophils # (Manual) PT 15.4 H INR 1.16 H POC ABG pH ABG pH POC ABG pCO2 POC ABG pO2 ABG pO2 ABG O2 Saturation ABG Base Excess ABG Hemoglobin Oxyhemoglobin Sodium Potassium Chloride Carbon Dioxide BUN Creatinine Glucose POC Glucose Calcium Phosphorus Magnesium Iron TIBC Ferritin Total Bilirubin AST ALT Alkaline Phosphatase Total Creatine Kinase Troponin T C-Reactive Protein Total Protein Albumin Triglycerides HDL Cholesterol Miscellaneous Test Crossmatch See Detail 09/15/17 09/15/17 09/16/17 22:25 23:38 01:26 WBC RBC Hgb Hct MCV MCH RDW Plt Count Lymph % (Auto) [place] % (Auto) [place] # Seg Neutrophils % Seg Neuts % (Manual) Lymphocytes % (Manual) Monocytes % (Manual) Nucleated RBC % Seg Neutrophils # Seg Neutrophils # Man Lymphocytes # (Manual) Monocytes # (Manual) Eosinophils # (Manual) Basophils # (Manual) PT INR POC ABG pH ABG pH POC ABG pCO2 POC ABG pO2 ABG pO2 ABG O2 Saturation ABG Base Excess ABG Hemoglobin Oxyhemoglobin Sodium Potassium Chloride Carbon Dioxide 17 L BUN 100 H Creatinine 2.6 H Glucose POC Glucose 58 L 132 H Calcium 8.3 L Phosphorus Magnesium 1.60 L Iron TIBC Ferritin Total Bilirubin 2.80 H AST 118 H ALT Alkaline Phosphatase 316 H Total Creatine Kinase Troponin T C-Reactive Protein Total Protein 4.0 L Albumin 1.8 L Triglycerides HDL Cholesterol Miscellaneous Test Crossmatch 09/16/17 09/16/17 09/16/17 05:30 05:30 05:54 WBC 24.6 H RBC 3.22 L Hgb 9.8 L Hct 28.6 L MCV MCH RDW 17.4 H Plt Count 127 L Lymph % (Auto) [place] % (Auto) [place] # Seg Neutrophils % Seg Neuts % (Manual) Lymphocytes % (Manual) Monocytes % (Manual) Nucleated RBC % Seg Neutrophils # Seg Neutrophils # Man Lymphocytes # (Manual) Monocytes # (Manual) Eosinophils # (Manual) Basophils # (Manual) PT INR POC ABG pH ABG pH POC ABG pCO2 POC ABG pO2 ABG pO2 ABG O2 Saturation ABG Base Excess ABG Hemoglobin Oxyhemoglobin Sodium Potassium Chloride Carbon Dioxide 18 L BUN 109 H Creatinine 2.5 H Glucose 140 H POC Glucose 154 H Calcium Phosphorus 4.80 H Magnesium Iron TIBC Ferritin Total Bilirubin 2.40 H AST 90 H ALT Alkaline Phosphatase 298 H Total Creatine Kinase 20 L Troponin T C-Reactive Protein Total Protein 4.1 L Albumin 1.8 L Triglycerides HDL Cholesterol Miscellaneous Test Crossmatch 09/16/17 09/16/17 09/16/17 11:49 17:04 23:18 WBC RBC Hgb Hct MCV MCH RDW Plt Count Lymph % (Auto) [place] % (Auto) [place] # Seg Neutrophils % Seg Neuts % (Manual) Lymphocytes % (Manual) Monocytes % (Manual) Nucleated RBC % Seg Neutrophils # Seg Neutrophils # Man Lymphocytes # (Manual) Monocytes # (Manual) Eosinophils # (Manual) Basophils # (Manual) PT INR POC ABG pH ABG pH POC ABG pCO2 POC ABG pO2 ABG pO2 ABG O2 Saturation ABG Base Excess ABG Hemoglobin Oxyhemoglobin Sodium Potassium Chloride Carbon Dioxide BUN Creatinine Glucose POC Glucose 167 H 156 H 162 H Calcium Phosphorus Magnesium Iron TIBC Ferritin Total Bilirubin AST ALT Alkaline Phosphatase Total Creatine Kinase Troponin T C-Reactive Protein Total Protein Albumin Triglycerides HDL Cholesterol Miscellaneous Test Crossmatch 09/17/17 09/17/17 09/17/17 05:27 06:10 06:10 WBC 34.6 H RBC 2.75 L Hgb 8.4 L Hct 24.8 L MCV MCH RDW 18.3 H Plt Count Lymph % (Auto) [place] % (Auto) [place] # Seg Neutrophils % Seg Neuts % (Manual) 77.0 H Lymphocytes % (Manual) 5.0 L Monocytes % (Manual) Nucleated RBC % 2.0 H Seg Neutrophils # Seg Neutrophils # Man 26.6 H Lymphocytes # (Manual) Monocytes # (Manual) 2.4 H Eosinophils # (Manual) Basophils # (Manual) PT INR POC ABG pH ABG pH POC ABG pCO2 POC ABG pO2 ABG pO2 ABG O2 Saturation ABG Base Excess ABG Hemoglobin Oxyhemoglobin Sodium Potassium Chloride Carbon Dioxide BUN 82 H Creatinine 2.1 H Glucose 252 H POC Glucose 243 H Calcium 8.3 L Phosphorus Magnesium Iron TIBC Ferritin Total Bilirubin AST ALT Alkaline Phosphatase Total Creatine Kinase Troponin T C-Reactive Protein Total Protein Albumin Triglycerides HDL Cholesterol Miscellaneous Test Crossmatch 09/17/17 09/17/17 09/18/17 11:42 17:12 00:08 WBC RBC Hgb Hct MCV MCH RDW Plt Count Lymph % (Auto) [place] % (Auto) [place] # Seg Neutrophils % Seg Neuts % (Manual) Lymphocytes % (Manual) Monocytes % (Manual) Nucleated RBC % Seg Neutrophils # Seg Neutrophils # Man Lymphocytes # (Manual) Monocytes # (Manual) Eosinophils # (Manual) Basophils # (Manual) PT INR POC ABG pH ABG pH POC ABG pCO2 POC ABG pO2 ABG pO2 ABG O2 Saturation ABG Base Excess ABG Hemoglobin Oxyhemoglobin Sodium Potassium Chloride Carbon Dioxide BUN Creatinine Glucose POC Glucose 232 H 309 H 275 H Calcium Phosphorus Magnesium Iron TIBC Ferritin Total Bilirubin AST ALT Alkaline Phosphatase Total Creatine Kinase Troponin T C-Reactive Protein Total Protein Albumin Triglycerides HDL Cholesterol Miscellaneous Test Crossmatch 09/18/17 09/18/17 09/18/17 05:10 05:10 05:23 WBC 24.4 H RBC 2.57 L Hgb 7.8 L Hct 23.2 L MCV MCH RDW 19.5 H Plt Count Lymph % (Auto) [place] % (Auto) [place] # Seg Neutrophils % Seg Neuts % (Manual) 78.0 H Lymphocytes % (Manual) 6.0 L Monocytes % (Manual) Nucleated RBC % 2.0 H Seg Neutrophils # Seg Neutrophils # Man 19.0 H Lymphocytes # (Manual) Monocytes # (Manual) Eosinophils # (Manual) Basophils # (Manual) PT INR POC ABG pH ABG pH POC ABG pCO2 POC ABG pO2 ABG pO2 ABG O2 Saturation ABG Base Excess ABG Hemoglobin Oxyhemoglobin Sodium Potassium Chloride Carbon Dioxide BUN 103 H Creatinine 2.8 H Glucose 173 H POC Glucose 224 H Calcium Phosphorus Magnesium Iron TIBC Ferritin Total Bilirubin AST ALT Alkaline Phosphatase Total Creatine Kinase Troponin T C-Reactive Protein Total Protein Albumin Triglycerides HDL Cholesterol Miscellaneous Test Crossmatch 09/18/17 09/18/17 09/19/17 13:59 23:19 06:00 WBC 17.6 H RBC 2.57 L Hgb 7.9 L Hct 23.2 L MCV MCH RDW 19.0 H Plt Count Lymph % (Auto) [place] % (Auto) [place] # Seg Neutrophils % Seg Neuts % (Manual) Lymphocytes % (Manual) 9.0 L Monocytes % (Manual) Nucleated RBC % Seg Neutrophils # Seg Neutrophils # Man 11.4 H Lymphocytes # (Manual) Monocytes # (Manual) 0.9 H Eosinophils # (Manual) Basophils # (Manual) PT INR POC ABG pH ABG pH POC ABG pCO2 POC ABG pO2 ABG pO2 ABG O2 Saturation ABG Base Excess ABG Hemoglobin Oxyhemoglobin Sodium Potassium Chloride Carbon Dioxide BUN Creatinine Glucose POC Glucose 268 H 188 H Calcium Phosphorus Magnesium Iron TIBC Ferritin Total Bilirubin AST ALT Alkaline Phosphatase Total Creatine Kinase Troponin T C-Reactive Protein Total Protein Albumin Triglycerides HDL Cholesterol Miscellaneous Test Crossmatch
[2017-09-19] MEDS: LEVEMIR SUB-Q SCH (11:05)
--- NOTE | 2017-09-19 11:17 | Progress Note ---
Assessment and Plan Assessment: 1) Sepsis with septic shock: leukocytosis better; new source ? colonic perf. Restared on IV solumedrol 09/13 -CRP= 34 -->30 -->19-->0.1 ->2.8 -procalcitonin=1.3 -->7.6 -->3.9 -->3.2 2) Initial Bowel obstruction / suspect ?gastric perforation ? peritonitis -S/P Exlap, G-tube placement, EGD, abdominal washout and removal of PD -OR findings - bowel obstruction due to entanglement of PD cath, abscess cavity in LUQ and ? suspect perforation of unclear location 3) Intiial CA-UTI: chronic ivan exchanged every 4 weeks and ureteral stents in place which are exchanged every 6 months 4) Paraplegia 5) ESRD on PD - no evidence of peritonitis, wbc count 2. 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 6) Recent pancreatitis 7) Penicillin allergy-has taken keflex w/o problems 8) Presumed Surgical wound infection / dehiscence ? 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 11) Sacral stage II 12) Anemia- severe- Hg 6.7 today 13) Colonic perforation: -S/P exlap, transverse colectomy, right sided colostomy and wash out on 09/15 Plan: -continue micafungin day 9 of (extended in view of colonic perf) -continue meropenem (extended in view of colonic perf) -monitor leukocytosis which is as expected since she was started back on IV steroids. -wound care I will be off from September 20 until September 23, I will be back on September 24. I will be available over the phone. Thank you Dr Baez for your consultation, will follow up with you. Ramya Lang MD Infectious Diseases Specialist [facility] [id number] [phone] O [phone] Subjective Date of service: 09/19/17 Principal diagnosis: respiratory failure, sepsis, shock rectal bleeding Interval history: Pt remains on the vent still levophed at 4 mcg,on TPN, fentanyl, no fever. Microbiology: Blood cultures: 9/14 neg 08/12 neg 08/16 neg 08/20 neg 08/29 neg 09/06 neg 09/12 ngtd Urine cultures: 08/08 10-100K skin grace Respiratory cultures: 08/30 tracheal asp MRSA Wound cultures: 08/26 Staph aureus and Kristine 08/28 MRSA, E faecalis, Kristine albicans Stool cultures: Other: 08/08 peritoneal fluid + MANUFACTURING TECHNOLOGIST/Diphteroids Current Antimicrobials: meropenem 09/09 micafungin 09/11 Previous Antimicrobials: 08/10 levaquin 08/16 vancomycin 08/13 meropenem 08/16 fluconazole Micafungin 08/29 meropenem 08/29 zyvox 09/03 fluconazole 09/03 dapto 09/10 Objective - Exam Narrative Exam: General appearance: alert this am on vent via trach Eyes: anicteric sclerae, moist conjunctivae; no lid-lag; PERRLA HENT: Atraumatic; NGT Neck: Trach in place Lungs: coarse BS moreno CV: RRR Abdomen: soft, midline surgical wound with sutures no drainage. Gtube. colostomy Extremities: + peripheral edema + leg ulcer no drainage Skin: right groin old fem line wound no erythema, no drainage Psych: sedated. Neuro: sedated Lines: right IJ vas cath / Right IJ Nair 08/16 - Constitutional Vitals: Vital Signs Temp Pulse Resp BP Pulse Ox 99.0 F 98 H 19 101/50 100 09/19/17 10:30 09/19/17 11:00 09/19/17 10:30 09/19/17 11:00 09/19/17 08:45 Temperature -Last 24 Hours Temperature 99.0 F Temperature 98.5 F Temperature 99.0 F Temperature 99.8 F Temperature 98.8 F Temperature 99.0 F Temperature 98.8 F Temperature 99.1 F Temperature 98.8 F - Labs CBC & Chem 7: 09/19/17 06:00 09/18/17 05:10 Labs: Abnormal lab results 09/18/17 09/18/17 09/19/17 Range/Units 13:59 23:19 06:00 WBC 17.6 H (4.5-11.0) K/mm3 RBC 2.57 L (3.65-5.03) M/mm3 Hgb 7.9 L (10.1-14.3) gm/dl Hct 23.2 L (30.3-42.9) % RDW 19.0 H (13.2-15.2) % Lymphocytes % (Manual) 9.0 L (13.4-35.0) % Seg Neutrophils # Man 11.4 H (1.8-7.7) K/mm3 Monocytes # (Manual) 0.9 H (0.0-0.8) K/mm3 POC Glucose 268 H 188 H (70-105)
[2017-09-19] MEDS: HEPARIN IV PRN (13:10)
[2017-09-19] MEDS: HEPARIN 10,000 UNITS/10 ML IV PRN (13:14)
[2017-09-19] MEDS: MERREM 1,000 MG in NACL 0.9% 100 ML IV SCH (15:18)
[2017-09-19] MEDS: MYCAMINE 100 MG in NACL 0.9% 100 ML IV SCH (15:21)
[2017-09-19] MEDS: PROTONIX IV SCH (15:23)
[2017-09-19] MEDS: DILAUDID IV PRN ×2 (16:27→21:11)
[2017-09-19] MEDS ORDERED: NACL 0.9 (PRIMING MACHINE ONLY DIALYSIS) MC ONE (18:01)
--- NOTE | 2017-09-19 18:08 | Progress Note ---
Assessment and Plan Assessment and plan: 62 YO Female with MO, ESRD-PD (with PD cath in place )(Daily), HTN, OA, Ischemic Cardiomyopathy who was on milrinone, Chronic Pain who came to ED with lightheaded and syncope, she c/o abdomnal pain x 2 days, was found to have hypotension, septic shock and intra-abdominal abscess. Sepsis secondary to peritonitis, Intra abdominal abscess and Bowel obstruction - continue abx, -ID on board, Currently on Meropenem and Micafungin She is now status post colostomy. She continues to have large amounts of purulent drainage from her abdominal drains. - she has had the following procedures 09/15/17: Ex lap, transverse colectomy, R colostomy and abdominal wash out 08/31: Ex lap with abdominal wash out and closure 08/17: Ex lap with G tube placement, EGD, abdominal wash out and removal of PD Cath Acute hypoxic respiratory failure on MV > 96 hours continue ventilator, planned for tracheostomy, has failed extubation multiple times planned for LTAC Acute rectal bleeding with severe acute blood loss anemia -EGD showed small gastric ulcer -sp multiple transfusions -- GI consult appreciated - Patient had CTA of abdomen and pelvis no active bleeding, CT Abdomen repeated 09/06, no acute findings - transfuse to keep Hg above 8 given septic shock -, too unstable for C scope at this time -wean steroids GIB likely from bleeding from gastric perforation and surgical wound monitor Hg and transfuse to keep above 8 now improved ESRD -continue HD per renal per femoral HD cath -needs perm cath when improved Septic shock. - continue IV pressors continue abx, ID input appreciated Ulcerative esophagitis/small gastric ulcer on EGD continue PPI Severe Protein calorie malnutrition - Continue with TPN Sacral and lower extremity wound, POA - continue wound care NSVT resolved, likely due to levophed, wean as tolerated cardiology input appreciated --DVT prophylaxis; SCDs - D/C Heparin because of GI bleed Plan of care discussed with the patient's family at bedside Disposition - continue ICU care Prognosis: guarded The high probability of a clinically significant, sudden or life threatening deterioration of the [cv, pulmonary and GI] system(s) required my full and direct attention, intervention and personal management. The aggregate critical care time was [33] minutes. This time is in addition to time spent performing reported procedures but includes the following: [] Data Review and interpretation [] Patient assessment and monitoring of vital signs [] Documentation [] Medication orders and management History Interval history: She has had no more episodes of melena today. having copious amounts of purulent output in Abdominal drains Hospitalist Physical - Physical exam Narrative exam: General.: Obese HEENT: Moist mucous membranes, extraocular muscles intact, no lymphadenopathy Neck: supple Cardiac: S1-S2 heard Lungs: clear to auscultation bilaterally Abdomen: soft, bowel sounds normal, other (obese, soft, dressing not removed) Extremities: no edema clubbing or cyanosis Skin: no rash or lesions Neurologic: trached, obeys commands, arousable - Constitutional Vitals: Temp Pulse Resp BP Pulse Ox 98.9 F 93 H 14 116/56 100 09/19/17 15:47 09/19/17 17:45 09/19/17 17:45 09/19/17 17:45 09/19/17 17:45 General appearance: Present: well-nourished Results - Labs CBC & Chem 7: 09/20/17 11:41 09/20/17 04:46 Labs: Laboratory Last Values WBC 17.6 K/mm3 (4.5-11.0) H 09/19/17 06:00 RBC 2.57 M/mm3 (3.65-5.03) L 09/19/17 06:00 Hgb 7.9 gm/dl (10.1-14.3) L 09/19/17 06:00 Hct 23.2 % (30.3-42.9) L 09/19/17 06:00 MCV 90 fl (79-97) 09/19/17 06:00 MCH 31 pg (28-32) 09/19/17 06:00 MCHC 34 % (30-34) 09/19/17 06:00 RDW 19.0 % (13.2-15.2) H 09/19/17 06:00 Plt Count 324 K/mm3 (140-440) 09/19/17 06:00 Lymph % (Auto) [facility] 08/19/17 07:37 [place] % (Auto) [facility] 09/13/17 Unknown Eos % (Auto) [facility] 08/19/17 07:37 Baso % (Auto) [facility] 08/19/17 07:37 Lymph # [facility] 08/19/17 07:37 [place] # [facility] 08/19/17 07:37 Eos # [facility] 08/19/17 07:37 Baso # [facility] 08/19/17 07:37 Add Manual Diff Complete 09/19/17 06:00 Total Counted 100 09/19/17 06:00 Seg Neutrophils % [facility] 09/08/17 04:05 Seg Neuts % (Manual) 65.0 % (40.0-70.0) 09/19/17 06:00 Band Neutrophils % 13.0 % 09/19/17 06:00 Lymphocytes % (Manual) 9.0 % (13.4-35.0) L 09/19/17 06:00 Reactive Lymphs % (Man) 1.0 % 09/19/17 06:00 Monocytes % (Manual) 5.0 % (0.0-7.3) 09/19/17 06:00 Eosinophils % (Manual) 0 % (0.0-4.3) 09/19/17 06:00 Basophils % (Manual) 0 % (0.0-1.8) 09/19/17 06:00 Metamyelocytes % 5.0 % 09/19/17 06:00 Myelocytes % 2.0 % 09/19/17 06:00 Promyelocytes % 0 % 09/19/17 06:00 Blast Cells % 0 % 09/19/17 06:00 Nucleated RBC % Not Reportable 09/19/17 06:00 Seg Neutrophils # [facility] 08/19/17 07:37 Seg Neutrophils # Man 11.4 K/mm3 (1.8-7.7) H 09/19/17 06:00 Band Neutrophils # 2.3 K/mm3 09/19/17 06:00 Lymphocytes # (Manual) 1.6 K/mm3 (1.2-5.4) 09/19/17 06:00 Abs React Lymphs (Man) 0.2 K/mm3 09/19/17 06:00 Monocytes # (Manual) 0.9 K/mm3 (0.0-0.8) H 09/19/17 06:00 Eosinophils # (Manual) 0.0 K/mm3 (0.0-0.4) 09/19/17 06:00 Basophils # (Manual) 0.0 K/mm3 (0.0-0.1) 09/19/17 06:00 Metamyelocytes # 0.9 K/mm3 09/19/17 06:00 Myelocytes # 0.4 K/mm3 09/19/17 06:00 Promyelocytes # 0.0 K/mm3 09/19/17 06:00 Blast Cells # 0.0 K/mm3 09/19/17 06:00 Pathologist Review Not Reportable 08/30/17 05:20 WBC Morphology Not Reportable 09/19/17 06:00 Hypersegmented Neuts Not Reportable 09/19/17 06:00 Hyposegmented Neuts Not Reportable 09/19/17 06:00 Hypogranular Neuts Not Reportable 09/19/17 06:00 Smudge Cells Not Reportable 09/19/17 06:00 Toxic Granulation Not Reportable 09/19/17 06:00 Toxic Vacuolation Not Reportable 09/19/17 06:00 Dohle Bodies Not Reportable 09/19/17 06:00 Pelger-Huet Anomaly Not Reportable 09/19/17 06:00 Ariel Rods Not Reportable 09/19/17 06:00 Platelet Estimate Appears normal 09/19/17 06:00 Clumped Platelets Not Reportable 09/19/17 06:00 Plt Clumps, EDTA Not Reportable 09/19/17 06:00 Large Platelets Rare 09/19/17 06:00 Giant Platelets Few 09/19/17 06:00 Platelet Satelliting Not Reportable 09/19/17 06:00 Plt Morphology Comment Not Reportable 09/19/17 06:00 RBC Morphology Not Reportable 09/19/17 06:00 Dimorphic RBCs Not Reportable 09/19/17 06:00 Polychromasia 1+ 09/19/17 06:00 Hypochromasia Not Reportable 09/19/17 06:00 Poikilocytosis Not Reportable 09/19/17 06:00 Anisocytosis 1+ 09/19/17 06:00 Microcytosis Not Reportable 09/19/17 06:00 Macrocytosis Not Reportable 09/19/17 06:00 Spherocytes Not Reportable 09/19/17 06:00 Pappenheimer Bodies Not Reportable 09/19/17 06:00 Sickle Cells Not Reportable 09/19/17 06:00 Target Cells Rare 09/19/17 06:00 Tear Drop Cells Rare 09/19/17 06:00 Ovalocytes Not Reportable 09/19/17 06:00 Stomatocytes Rare 09/12/17 05:25 Helmet Cells Not Reportable 09/19/17 06:00 [place] Bodies Not Reportable 09/19/17 06:00 [place] Rings Not Reportable 09/19/17 06:00 [place] Cells Not Reportable 09/19/17 06:00 Bite Cells Not Reportable 09/19/17 06:00 Crenated Cell Not Reportable 09/19/17 06:00 Elliptocytes Not Reportable 09/19/17 06:00 Acanthocytes (Spur) Not Reportable 09/19/17 06:00 Rouleaux Not Reportable 09/19/17 06:00 Hemoglobin C Crystals Not Reportable 09/19/17 06:00 Schistocytes Not Reportable 09/19/17 06:00 Malaria parasites Not Reportable 09/19/17 06:00 [place] Bodies Not Reportable 09/19/17 06:00 Hem Pathologist Commnt No 09/19/17 06:00 PT 15.4 Sec. (12.2-14.9) H 09/15/17 12:45 INR 1.16 (0.87-1.13) H 09/15/17 12:45 APTT 28.7 Sec. (24.2-36.6) 08/31/17 18:15 POC ABG pH 7.347 (7.35-7.45) L 09/13/17 11:36 ABG pH 7.323 pH Units (7.350-7.450) L 09/09/17 Unknown POC ABG pCO2 34.3 (35-45) L 09/13/17 11:36 ABG pCO2 41.1 mm Hg 09/09/17 Unknown POC ABG pO2 134 (80-105) H 09/13/17 11:36 ABG pO2 94.1 mm Hg (80.0-90.0) H 09/09/17 Unknown POC ABG HCO3 18.8 09/13/17 11:36 ABG HCO3 20.9 mmol/L (20.0-26.0) 09/09/17 Unknown POC ABG Total CO2 20 09/13/17 11:36 POC ABG O2 Sat 99 09/13/17 11:36 ABG O2 Saturation 97.2 % (95.0-99.0) 09/09/17 Unknown ABG O2 Content 10.9 (0.0-44) 09/09/17 Unknown POC ABG Base Excess -7 09/13/17 11:36 ABG Base Excess -4.8 mmol/L (-2.0-3.0) L 09/09/17 Unknown ABG Hemoglobin 8.0 gm/dl (12.0-16.0) L 09/09/17 Unknown ABG Carboxyhemoglobin 2.0 % (0.0-5.0) 09/09/17 Unknown ABG Methemoglobin 0.3 % (0.0-1.5) 09/09/17 Unknown VBG pH 7.462 (7.320-7.420) H 08/08/17 14:52 Oxyhemoglobin 94.9 % (95.0-99.0) L 09/09/17 Unknown FiO2 30 % 09/13/17 11:36 Sodium 141 mmol/L (137-145) 09/18/17 05:10 Potassium 4.3 mmol/L (3.6-5.0) 09/18/17 05:10 Chloride 101.4 mmol/L (98-107) 09/18/17 05:10 Carbon Dioxide 22 mmol/L (22-30) 09/18/17 05:10 Anion Gap 22 mmol/L 09/18/17 05:10 BUN 103 mg/dL (7-17) H 09/18/17 05:10 Creatinine 2.8 mg/dL (0.7-1.2) H 09/18/17 05:10 Estimated GFR 21 ml/min 09/18/17 05:10 BUN/Creatinine Ratio 37 % 09/18/17 05:10 Glucose 173 mg/dL (65-100) H 09/18/17 05:10 POC Glucose 263 (70-105) H 09/19/17 17:08 Lactic Acid 1.60 mmol/L (0.7-2.0) 08/17/17 11:20 Calcium 8.9 mg/dL (8.4-10.2) 09/18/17 05:10 Phosphorus 3.40 mg/dL (2.5-4.5) D 09/17/17 06:10 Magnesium 1.70 mg/dL (1.7-2.3) 09/16/17 05:30 Iron 22 ug/dL (37-170) L 09/12/17 05:25 TIBC 81 mcg/dL (250-450) L 09/12/17 05:25 Ferritin > 2000.0 ng/mL (13.0-400.0) H 09/12/17 05:25 Total Bilirubin 2.40 mg/dL (0.1-1.2) H 09/16/17 05:30 Direct Bilirubin 0.2 mg/dL (0-0.2) 08/08/17 14:11 Indirect Bilirubin 0.3 mg/dL 08/08/17 14:11 AST 90 units/L (5-40) H 09/16/17 05:30 ALT 45 units/L (7-56) 09/16/17 05:30 Alkaline Phosphatase 298 units/L (35-129) H 09/16/17 05:30 Ammonia 25.0 umol/L (25-60) 08/08/17 14:52 Total Creatine Kinase 20 units/L (30-135) L 09/16/17 05:30 Troponin T 0.132 ng/mL (0.00-0.029) H* 08/09/17 13:25 C-Reactive Protein 2.80 mg/dL (0.00-1.30) H 09/06/17 05:30 NT-Pro-B Natriuret Pep 6156 pg/mL (0-900) H 08/08/17 14:11 Total Protein 4.1 g/dL (6.3-8.2) L 09/16/17 05:30 Albumin 1.8 g/dL (3.9-5) L 09/16/17 05:30 Albumin/Globulin Ratio 0.8 % 09/16/17 05:30 Triglycerides 180 mg/dL (2-149) H 09/03/17 04:00 Cholesterol 91 mg/dL (50-199) 08/08/17 21:23 LDL Cholesterol Direct 53 mg/dL (50-130) 08/08/17 21:23 HDL Cholesterol 26 mg/dL (40-59) L 08/08/17 21:23 Cholesterol/HDL Ratio 3.50 % 08/08/17 21:23 Amylase 45 units/L (27-131) 08/16/17 09:50 Lipase 34 units/L (13-60) 09/22/17 09:50 TSH 6.580 mlU/mL (0.270-4.200) H 08/08/17 14:22 Free T4 1.46 ng/dL (0.76-1.46) 08/08/17 14: Total Cortisol 28.3 mcg/dL () 09/13/17 12:50 Urine Color Yellow (Yellow) 08/08/17 20:15 Urine Turbidity Turbid (Clear) 08/08/17 20:15 Urine pH 8.0 (5.0-7.0) H 08/08/17 20:15 Ur Specific [place] 1.015 (1.003-1.030) 08/08/17 20:15 Urine Protein 100 mg/dl mg/dL (Negative) 08/08/17 20:15 Urine Glucose (UA) Neg mg/dL (Negative) 08/08/17 20:15 Urine Ketones Neg mg/dL (Negative) 08/08/17 20:15 Urine Blood Mod (Negative) 08/08/17 20:15 Urine Nitrite Neg (Negative) 08/08/17 20:15 Urine Bilirubin Neg (Negative) 08/08/17 20:15 Urine Urobilinogen < 2.0 mg/dL (<2.0) 08/08/17 20:15 Ur Leukocyte Esterase Lg (Negative) 08/08/17 20:15 Urine WBC (Auto) 24.0 /HPF (0.0-6.0) H 08/08/17 20:15 Urine RBC (Auto) 3.0 /HPF (0.0-6.0) 08/08/17 20:15 U Epithel Cells (Auto) 3.0 /HPF (0-13.0) 08/08/17 20:15 Urine Bacteria (Auto) 4+ /HPF (Negative) 08/08/17 20:15 Urine Mucus 3+ /HPF 08/08/17 20:15 Fluid Type Peritoneal 08/08/17 18:18 Fluid Color Straw 08/08/17 18:18 Fluid Appearance Clear 08/08/17 18:18 Fluid pH 7.74 08/08/17 18:18 Fluid WBC 4 /mm3 08/08/17 18:18 Fluid RBC 1 /mm3 08/08/17 18:18 Fluid Seg Neutrophils 12 % 08/08/17 18:18 Fluid Lymphocytes 0 % 08/08/17 18:18 Fluid Reactive Lymphs 0 % 08/08/17 18:18 Fluid Monocytes 1 % 08/08/17 18:18 Fluid Eosinophils 0 % 08/08/17 18:18 Fluid Basophils 0 % 08/08/17 18:18 Fluid Glucose 315 mg/dL (40-70) H 08/08/17 18:18 Random Vancomycin 19.5 ug/mL (0-40.0) 08/22/17 03:40 Hep Bs Antigen Non-reactive (Negative) 08/22/17 03:40 Hepatitis C Antibody Non-reactive (NonReactive) 08/22/17 03:40 Miscellaneous Test Flexitest 1 H 09/06/17 09:57 Blood Type O POSITIVE 09/15/17 12:45 Antibody Screen Negative 09/15/17 12:45 VAN Antibody Screen Negative 09/07/17 17:07 Crossmatch See Detail 09/15/17 12:45
--- NOTE | 2017-09-19 19:22 | Progress Note ---
Assessment and Plan - Patient Problems (1) Leukocytosis Current Visit: Yes Status: Acute Qualifiers: Leukocytosis type: L Plan to address problem: See notes above. make sure that PD access is clean also. see notes. Probably infection from the infected PD catheter. improving. back up again. up/down continue to monitor. it continuos to rise. still high. improved. Back up. Now improving again. (2) Anemia Current Visit: Yes Status: Acute Qualifiers: Anemia type: A Iron deficiency anemia type: I Vitamin B12 deficiency anemia type: V Folate deficiency anemia type: F Bone marrow failure anemia type: B Hemolytic anemia type: H Other causes of anemia: O Chronic kidney disease stage: C Plan to address problem: see notes , monitor labs,. see notes above. continue to monitor labs with you. blood transfusion. S/P replacement transfusion. fair. s/p 1unit transfusion. see notes. Still at 7.4 6.9, scheduled for replacement. Fairly stable at this time. continue to monitor. (3) Acute respiratory failure Current Visit: Yes Status: Acute Qualifiers: Respiratory failure complication: R Plan to address problem: follow pulm. Subjective Date of service: 09/19/17 Principal diagnosis: respiratory failure, sepsis, shock rectal bleeding Interval history: Patient seen today/examined, labs reviewed, case d/w she, and family.complaints of abdominal pain. Patient resting in bed in the ICU, post vascular procedure. labs reviewed, Reactive thrombocytosis, anemia of CD, leukocytosis from infection vs inflamatory process. Patient seen/examined, in bed in the ICU, on the vent post surgery.Labs reviewed , notes reviewed. will continue to monitor labs/patient with you. Replacement transfusion, if /when indicated. patient seen/examined, SBP75, on pressors., lethargic, on the vent, labs reviewed, wbc 39,000 Patient seen/examined, case reviewed, d/w her sister at the bed side. Patient seen/examined, labs reviewed, notes reviewed. severe septic shock from infected PD catheter The high wbc is all infection related. H?H low, and may get replacement transfusion with the next HD. Prognosis remain quite poor. Patient seen/examined, extubated, now on V Mask. labs reviewed. patient seen/examined, resting in bed, still some what lethargic . labs reviewed. Patient seen/examined, resting in bed., some difficulty with breathing./ lethargic. patient seen/examined, resting in bed, looked much better labs reviewed, and fair over all. Patient seen/examined, resting in bed, labs reviewed, case d/w her. Patient seen/examined, resting in bed on BIPAP., labs reviewed. patient seen/examined, resting in bed, on Bipap.labs reviewed, fairly stable. Patient seen today, resting in bed, labs reviewed, H/H low, and transfusion already ordered. Patient seen/examined, resting in bed, transferred back to the unit, due to resp failure. She is now on venting mask. had blood replacement done. Patient seen/examined in the ICU.labs reviewed. patient intubated this am. patient resting in bed.no new issues. Patient seen/examined in the ICU, on vent,Not readily responsive. patient seen, resting in bed, no new cbc ready.will order for today. Patient seen, resting in vent, labs reviewed.notes reviewed also. patient seen/examined, resting on vent, had HD yesterday, and today., labs reviewed. Patient seen, resting in bed, labs reviewed.fairly stable labs, except the wbc. Patient seen/examined, rtesting in bed on the vent.Labs reviewed, wbc still elevated, Hgb dropped slightly. Patient seen/examined, labs reviewed, hgb 7.3, if 7.0 or less, will replace .unless otherwise indicated. Patient seen/examined, alert but lethargic.sedation drip turned down.she is s/p 1unit PRBC replacement with HD today. Patient seen/examined, labs reviewed, hgb still not quite enough at 7.5, perhaps with the next HD,can use 1-2 units. Patient seen/examined, resting in bed, trached, labs re viewed. Patient seen/examined, resting in bed, responds to name calling, SBP99, labs reviewed, Hgb 6.9, PRBC replacement ordered by primary. Patient seen/examined, in bed/trach, NGT., alert/lethargic. Patient seen/examined, resting in bed, still lethargic, labs reviewed, and still fair.Will continue to follow you. Patient seen/examined, resting in bed, labs reviewed. HD in progress.She is now getting daily HD.Labs reviewed, and still fair. Patient seen/examined, resting in bed, less lethargic/less toxic looking. labs have improved. Objective - Constitutional Vitals: Vital Signs - 12hr 09/19/17 09/19/17 09/19/17 07:31 07:45 07:57 Temperature 98.5 F Pulse Rate 103 H 103 H Pulse Rate [ Anterior Bilateral Throughout] Respiratory 13 15 Rate Respiratory Rate [Anterior Bilateral Throughout] Blood Pressure 122/45 122/45 O2 Sat by Pulse 100 100 Oximetry O2 Sat by Pulse Oximetry [ Anterior Bilateral Throughout] O2 Sat by Pulse Oximetry [ Assessment] 09/19/17 09/19/17 09/19/17 08:00 08:01 08:15 Temperature Pulse Rate 97 H 104 H Pulse Rate [ Anterior Bilateral Throughout] Respiratory 15 14 Rate Respiratory Rate [Anterior Bilateral Throughout] Blood Pressure 96/42 115/48 O2 Sat by Pulse 100 100 100 Oximetry O2 Sat by Pulse Oximetry [ Anterior Bilateral Throughout] O2 Sat by Pulse 100 Oximetry [ Assessment] 09/19/17 09/19/17 09/19/17 08:30 08:45 08:50 Temperature Pulse Rate 104 H 101 H 90 Pulse Rate [ 93 H Anterior Bilateral Throughout] Respiratory 17 17 19 Rate Respiratory 20 Rate [Anterior Bilateral Throughout] Blood Pressure 110/43 109/90 113/52 O2 Sat by Pulse 100 Oximetry O2 Sat by Pulse Oximetry [ Anterior Bilateral Throughout] O2 Sat by Pulse Oximetry [ Assessment] 09/19/17 09/19/17 09/19/17 09:00 09:15 09:30 Temperature Pulse Rate 92 H 94 H 102 H Pulse Rate [ Anterior Bilateral Throughout] Respiratory 14 14 15 Rate Respiratory Rate [Anterior Bilateral Throughout] Blood Pressure 109/48 118/43 107/53 O2 Sat by Pulse 100 100 100 Oximetry O2 Sat by Pulse Oximetry [ Anterior Bilateral Throughout] O2 Sat by Pulse Oximetry [ Assessment] 09/19/17 09/19/17 09/19/17 09:45 10:00 10:15 Temperature Pulse Rate 107 H 98 H 106 H Pulse Rate [ Anterior Bilateral Throughout] Respiratory 13 16 24 Rate Respiratory Rate [Anterior Bilateral Throughout] Blood Pressure 97/49 113/50 113/50 O2 Sat by Pulse 100 100 100 Oximetry O2 Sat by Pulse Oximetry [ Anterior Bilateral Throughout] O2 Sat by Pulse Oximetry [ Assessment] 09/19/17 09/19/17 09/19/17 10:30 10:31 10:45 Temperature 99.0 F Pulse Rate 95 H 95 H 101 H Pulse Rate [ Anterior Bilateral Throughout] Respiratory 19 18 12 Rate Respiratory Rate [Anterior Bilateral Throughout] Blood Pressure 114/45 114/45 96/51 O2 Sat by Pulse 100 100 Oximetry O2 Sat by Pulse Oximetry [ Anterior Bilateral Throughout] O2 Sat by Pulse Oximetry [ Assessment] 09/19/17 09/19/17 09/19/17 11:00 11:15 11:30 Temperature Pulse Rate 98 H 101 H 109 H Pulse Rate [ Anterior Bilateral Throughout] Respiratory 17 19 23 Rate Respiratory Rate [Anterior Bilateral Throughout] Blood Pressure 101/50 88/52 104/67 O2 Sat by Pulse 100 100 100 Oximetry O2 Sat by Pulse Oximetry [ Anterior Bilateral Throughout] O2 Sat by Pulse Oximetry [ Assessment] 09/19/17 09/19/17 09/19/17 11:45 12:00 12:15 Temperature 98.3 F Pulse Rate 111 H 99 H 104 H Pulse Rate [ Anterior Bilateral Throughout] Respiratory 13 18 14 Rate Respiratory Rate [Anterior Bilateral Throughout] Blood Pressure 114/94 87/44 87/44 O2 Sat by Pulse 100 100 100 Oximetry O2 Sat by Pulse Oximetry [ Anterior Bilateral Throughout] O2 Sat by Pulse Oximetry [ Assessment] 09/19/17 09/19/17 09/19/17 12:30 12:31 12:45 Temperature Pulse Rate 112 H 107 H 105 H Pulse Rate [ Anterior Bilateral Throughout] Respiratory 21 12 Rate Respiratory Rate [Anterior Bilateral Throughout] Blood Pressure 101/63 101/63 96/42 O2 Sat by Pulse 100 100 Oximetry O2 Sat by Pulse Oximetry [ Anterior Bilateral Throughout] O2 Sat by Pulse Oximetry [ Assessment] 09/19/17 09/19/17 09/19/17 13:01 13:15 13:30 Temperature Pulse Rate 102 H 114 H 104 H Pulse Rate [ Anterior Bilateral Throughout] Respiratory 19 15 18 Rate Respiratory Rate [Anterior Bilateral Throughout] Blood Pressure 114/52 109/51 97/61 O2 Sat by Pulse 100 100 Oximetry O2 Sat by Pulse Oximetry [ Anterior Bilateral Throughout] O2 Sat by Pulse Oximetry [ Assessment] 09/19/17 09/19/17 09/19/17 13:40 13:45 14:00 Temperature 98.6 F Pulse Rate 111 H 106 H 103 H Pulse Rate [ Anterior Bilateral Throughout] Respiratory 20 20 18 Rate Respiratory Rate [Anterior Bilateral Throughout] Blood Pressure 109/51 113/46 109/48 O2 Sat by Pulse 100 100 Oximetry O2 Sat by Pulse 100 Oximetry [ Anterior Bilateral Throughout] O2 Sat by Pulse Oximetry [ Assessment] 09/19/17 09/19/17 09/19/17 14:15 14:17 14:30 Temperature Pulse Rate 110 H 104 H 101 H Pulse Rate [ Anterior Bilateral Throughout] Respiratory 19 19 Rate Respiratory Rate [Anterior Bilateral Throughout] Blood Pressure 113/46 114/49 103/50 O2 Sat by Pulse 100 100 Oximetry O2 Sat by Pulse Oximetry [ Anterior Bilateral Throughout] O2 Sat by Pulse Oximetry [ Assessment] 09/19/17 09/19/17 09/19/17 14:45 15:01 15:15 Temperature Pulse Rate 108 H 103 H 100 H Pulse Rate [ Anterior Bilateral Throughout] Respiratory 18 18 20 Rate Respiratory Rate [Anterior Bilateral Throughout] Blood Pressure 103/50 106/46 113/49 O2 Sat by Pulse 100 100 100 Oximetry O2 Sat by Pulse Oximetry [ Anterior Bilateral Throughout] O2 Sat by Pulse Oximetry [ Assessment] 09/19/17 09/19/17 09/19/17 15:30 15:45 15:47 Temperature 98.9 F Pulse Rate 101 H 114 H Pulse Rate [ Anterior Bilateral Throughout] Respiratory 14 20 Rate Respiratory Rate [Anterior Bilateral Throughout] Blood Pressure 117/48 117/48 O2 Sat by Pulse 100 100 Oximetry O2 Sat by Pulse Oximetry [ Anterior Bilateral Throughout] O2 Sat by Pulse Oximetry [ Assessment] 09/19/17 09/19/17 09/19/17 16:00 16:15 16:30 Temperature Pulse Rate 107 H 106 H 116 H Pulse Rate [ Anterior Bilateral Throughout] Respiratory 14 18 18 Rate Respiratory Rate [Anterior Bilateral Throughout] Blood Pressure 122/56 122/56 110/61 O2 Sat by Pulse 100 100 100 Oximetry O2 Sat by Pulse Oximetry [ Anterior Bilateral Throughout] O2 Sat by Pulse Oximetry [ Assessment] 09/19/17 09/19/17 09/19/17 16:45 17:00 17:15 Temperature Pulse Rate 94 H 92 H 92 H Pulse Rate [ Anterior Bilateral Throughout] Respiratory 19 19 14 Rate Respiratory Rate [Anterior Bilateral Throughout] Blood Pressure 104/48 117/49 109/48 O2 Sat by Pulse 100 100 100 Oximetry O2 Sat by Pulse Oximetry [ Anterior Bilateral Throughout] O2 Sat by Pulse Oximetry [ Assessment] 09/19/17 09/19/1709/19/17 17:22 17:24 17:31 Temperature Pulse Rate 103 H 105 H Pulse Rate [ Anterior Bilateral Throughout] Respiratory 18 Rate Respiratory Rate [Anterior Bilateral Throughout] Blood Pressure 109/48 113/47 O2 Sat by Pulse 100 Oximetry O2 Sat by Pulse Oximetry [ Anterior Bilateral Throughout] O2 Sat by Pulse 100 Oximetry [ Assessment] 09/19/17 09/19/17 09/19/17 17:45 18:01 18:15 Temperature Pulse Rate 93 H 98 H 104 H Pulse Rate [ Anterior Bilateral Throughout] Respiratory 14 17 21 Rate Respiratory Rate [Anterior Bilateral Throughout] Blood Pressure 116/56 112/47 112/47 O2 Sat by Pulse 100 100 100 Oximetry O2 Sat by Pulse Oximetry [ Anterior Bilateral Throughout] O2 Sat by Pulse Oximetry [ Assessment] 09/19/17 18:30 Temperature Pulse Rate 109 H Pulse Rate [ Anterior Bilateral Throughout] Respiratory 17 Rate Respiratory Rate [Anterior Bilateral Throughout] Blood Pressure 117/63 O2 Sat by Pulse 100 Oximetry O2 Sat by Pulse Oximetry [ Anterior Bilateral Throughout] O2 Sat by Pulse Oximetry [ Assessment] General appearance: Present: mild distress - EENT Eyes: PERRL, EOM intact ENT: hearing intact, clear oral mucosa Ears: bilateral: normal - Neck Neck: supple, normal ROM - Respiratory Respiratory: bilateral: diminished - Breasts Breasts: deferred - Cardiovascular Rhythm: regular Heart Sounds: Present: S1 & S2. Absent: gallop, rub Extremities: pulses intact, No edema, normal color, Full ROM - Gastrointestinal General gastrointestinal: Present: soft, non-tender, non-distended, normal bowel sounds Rectal Exam: deferred - Genitourinary Female genitourinary: deferred - Integumentary Integumentary: clear, warm, dry - Musculoskeletal Musculoskeletal: 1, strength equal bilaterally - Neurologic Neurologic: moves all extremities - Psychiatric Psychiatric: appropriate mood/affect - Labs CBC & Chem 7: 09/19/17 06:00 09/18/17 05:10 Labs: Abnormal lab results 09/18/17 09/18/17 09/19/17 Range/Units 18:35 23:19 05:45 WBC (4.5-11.0) K/mm3 RBC (3.65-5.03) M/mm3 Hgb (10.1-14.3) gm/dl Hct (30.3-42.9) % RDW (13.2-15.2) % Lymphocytes % (Manual) (13.4-35.0) % Seg Neutrophils # Man (1.8-7.7) K/mm3 Monocytes # (Manual) (0.0-0.8) K/mm3 POC Glucose 220 H 188 H 178 H (70-105) 09/19/17 09/19/17 09/19/17 Range/Units 06:00 11:41 17:08 WBC 17.6 H (4.5-11.0) K/mm3 RBC 2.57 L (3.65-5.03) M/mm3 Hgb 7.9 L (10.1-14.3) gm/dl Hct 23.2 L (30.3-42.9) % RDW 19.0 H (13.2-15.2) % Lymphocytes % (Manual) 9.0 L (13.4-35.0) % Seg Neutrophils # Man 11.4 H (1.8-7.7) K/mm3 Monocytes # (Manual) 0.9 H (0.0-0.8) K/mm3 POC Glucose 126 H 263 H (70-105)
[2017-09-19] MEDS ORDERED: TPN ADULT 1,800 ML IV SCH (20:00)
[2017-09-20] MEDS: DILAUDID IV PRN ×4 (00:54→19:59)
[2017-09-20 05:21] LABS: Calcium 8.6 mg/dL (8.4-10.2); Chloride 97.4 mmol/L (98-107); Phosphorous 3.8 mg/dL (2.5-4.5)
[2017-09-20 05:24] LABS: Potassium 5.2 mmol/L (3.6-5.0)
[2017-09-20] MEDS: NOVOLOG SUB-Q SCH ×4 (06:17→19:04)
[2017-09-20] MEDS ORDERED: NACL 0.9% 100 ML IV PRN (07:28)
--- NOTE | 2017-09-20 07:28 | Progress Note ---
Assessment and Plan - Patient Problems (1) ESRD (end stage renal disease) on dialysis Current Visit: Yes Status: Acute Plan to address problem: Continue HD on MWF and Isolated UF on TTS as tolerated. HD today. Mostly patient is tolerating fluid removal with hemodialysis. Patient is on TPN. (2) Hyperkalemia Current Visit: Yes Status: Acute Plan to address problem: Hemodialysis with 2K bath. (3) Anemia Current Visit: No Status: Chronic Qualifiers: Anemia type: due to chronic kidney disease Iron deficiency anemia type: I Vitamin B12 deficiency anemia type: V Folate deficiency anemia type: F Bone marrow failure anemia type: B Hemolytic anemia type: H Other causes of anemia: O Chronic kidney disease stage: on chronic dialysis Qualified Code(s ): N18.6 - End stage renal disease; D63.1 - Anemia in chronic kidney disease; Z99.2 - Dependence on renal dialysis Plan to address problem: S/p multiple units of PRBC. Epogen on dialysis days. Unable to give IV Iron due to high Ferritin leevl. (4) Hypotension Current Visit: Yes Status: Chronic Qualifiers: Hypotension type: H Trimester: T Plan to address problem: On Levophed. (5) Volume overload Current Visit: Yes Status: Acute Qualifiers: Hypervolemia type: H Plan to address problem: UF as tolerated. (6) Leukocytosis Current Visit: Yes Status: Acute Qualifiers: Leukocytosis type: unspecified Qualified Code(s): D72.829 - Elevated white blood cell count, unspecified (7) Acute respiratory failure with hypoxemia Current Visit: Yes Status: Acute Plan to address problem: On the vent. (8) Sepsis Current Visit: Yes Status: Acute Qualifiers: Sepsis type: S Subjective Date of service: 09/20/17 Principal diagnosis: respiratory failure, sepsis, shock rectal bleeding Interval history: Patient was seen and examined at the bedside. Remain on the vent. Objective - Vital Signs Vital signs: Vital Signs - 12hr 09/19/17 09/19/17 09/19/17 19:31 19:44 19:45 Temperature Pulse Rate 99 H 102 H 102 H Respiratory 22 21 Rate Blood Pressure 113/48 113/48 118/48 O2 Sat by Pulse 100 100 100 Oximetry 09/19/17 09/19/17 09/19/17 20:00 20:01 20:15 Temperature 99.0 F Pulse Rate 98 H 98 H Respiratory 19 19 Rate Blood Pressure 97/50 108/48 O2 Sat by Pulse 100 100 100 Oximetry 09/19/17 09/19/17 09/19/17 20:30 20:45 21:00 Temperature Pulse Rate 95 H 90 95 H Respiratory 20 18 15 Rate Blood Pressure 116/55 112/49 107/53 O2 Sat by Pulse 100 100 100 Oximetry 09/19/17 09/19/17 09/19/17 21:15 21:30 21:45 Temperature Pulse Rate 103 H 96 H 88 Respiratory 17 15 18 Rate Blood Pressure 107/53 112/44 112/42 O2 Sat by Pulse 100 100 100 Oximetry 09/19/17 09/19/17 09/19/17 22:00 22:01 22:15 Temperature Pulse Rate 106 H 88 87 Respiratory 19 18 Rate Blood Pressure 114/45 120/43 O2 Sat by Pulse 100 100 Oximetry 09/19/17 09/19/17 09/19/17 22:30 22:45 22:49 Temperature Pulse Rate 87 89 83 Respiratory 14 18 18 Rate Blood Pressure 118/50 118/50 111/48 O2 Sat by Pulse 100 100 100 Oximetry 09/19/17 09/19/17 09/19/17 23:01 23:09 23:15 Temperature Pulse Rate 86 82 86 Respiratory 19 20 18 Rate Blood Pressure 119/50 119/50 119/48 O2 Sat by Pulse 100 100 100 Oximetry 09/19/17 09/19/17 09/19/17 23:31 23:45 23:52 Temperature Pulse Rate 88 94 H 87 Respiratory 18 19 Rate Blood Pressure 120/48 124/54 124/54 O2 Sat by Pulse 100 100 100 Oximetry 09/20/17 09/20/17 09/20/17 00:00 00:15 00:31 Temperature 98.8 F Pulse Rate 92 H 101 H 92 H Respiratory 15 17 15 Rate Blood Pressure 140/50 140/50 128/53 O2 Sat by Pulse 100 100 100 Oximetry 09/20/17 09/20/17 09/20/17 00:45 01:00 01:15 Temperature Pulse Rate 87 100 H 115 H Respiratory 18 16 20 Rate Blood Pressure 120/49 132/72 132/72 O2 Sat by Pulse 100 100 100 Oximetry 09/20/17 09/20/17 09/20/17 01:31 01:45 02:01 Temperature Pulse Rate 116 H 94 H 97 H Respiratory 19 17 18 Rate Blood Pressure 108/61 113/53 104/47 O2 Sat by Pulse 100 100 100 Oximetry 09/20/17 09/20/17 09/20/17 02:15 02:30 02:45 Temperature Pulse Rate 97 H 95 H 104 H Respiratory 17 18 16 Rate Blood Pressure 103/55 110/56 110/56 O2 Sat by Pulse 100 100 100 Oximetry 09/20/17 09/20/17 09/20/17 03:00 03:03 03:15 Temperature Pulse Rate 93 H 87 119 H Respiratory 18 16 Rate Blood Pressure 113/66 108/57 O2 Sat by Pulse 100 100 98 Oximetry 09/20/17 09/20/17 09/20/17 03:31 03:45 04:00 Temperature 98.7 F Pulse Rate 122 H 104 H 105 H Respiratory 28 H 15 18 Rate Blood Pressure 126/56 130/55 143/53 O2 Sat by Pulse 100 100 Oximetry 09/20/17 09/20/17 09/20/17 04:15 04:30 04:45 Temperature Pulse Rate 103 H 104 H 107 H Respiratory 20 22 25 H Rate Blood Pressure 114/65 121/58 121/58 O2 Sat by Pulse Oximetry 09/20/17 09/20/17 09/20/17 05:00 05:15 05:30 Temperature Pulse Rate 96 H 93 H 114 H Respiratory 19 18 22 Rate Blood Pressure 112/57 113/45 126/61 O2 Sat by Pulse 100 Oximetry 09/20/17 09/20/17 09/20/17 05:45 06:01 06:15 Temperature Pulse Rate 105 H 97 H 101 H Respiratory 22 18 19 Rate Blood Pressure 117/46 120/38 117/49 O2 Sat by Pulse 100 100 Oximetry - General Appearance General appearance: well-developed, appears stated age, obese, other (on vent, FiO2 40%, no obvious distress) EENT: ATNC, PERRL Neck: other (Trached) Respiratory: Present: Clear to Ascultation Cardiology: regular, S1S2, no murmurs Gastrointestinal: normoactive bowel sounds, obese, other (Ostomy and dressing noted) Integumentary: no rash Neurologic: other (alert, grimaces) Musculoskeletal: other (1+ edema of both LEs noted) - Lab 09/19/17 06:00 09/20/17 04:46 Most recent lab results ABG pH 7.323 pH Units (7.350-7.450) L 09/09/17 Unknown ABG pCO2 41.1 mm Hg 09/09/17 Unknown ABG pO2 94.1 mm Hg (80.0-90.0) H 09/09/17 Unknown ABG HCO3 20.9 mmol/L (20.0-26.0) 09/09/17 Unknown ABG O2 Saturation 97.2 % (95.0-99.0) 09/09/17 Unknown Calcium 8.6 mg/dL (8.4-10.2) 09/20/17 04:46 Phosphorus 3.80 mg/dL (2.5-4.5) 09/20/17 04:46 Magnesium 1.70 mg/dL (1.7-2.3) 09/16/17 05:30
--- NOTE | 2017-09-20 09:54 | Progress Note ---
Assessment and Plan 62 y/o female originally admitted with hypotension, now back to ICU secondary to worsening hypotension, concern for sepsis, with acute respiratory failure post-op from ex-lap for abdominal distention and possible ileus, now back from OR after worsening respiratory failure, requiring re-intubation and wash out of abdomen 1. Follow up cultures, currently on broad spectrum abx by ID 2. HD per renal, has been having at least 6x weekly. 3. Continue PSV trials as tolerated. Rest on rate while on HD. Tolerated yesterday being on HD and PSV, will continue as tolerated 4. Recent Perf of colon with washout. Surgery continues to follow. 5. Wean Vasopressors for MAPS greater than 60-65. Unable to use abdomen at this time. Levophed at 4 6. Dropping steroids to 25q8 today. 7. Patient continues to require occasional transfusions. Not a candidate for endoscopy at this time. Transfuse for HgB less than 7. Ordered CBC stat Overall prognosis is guarded to poor CCT 31 Subjective Date of service: 09/20/17 Principal diagnosis: respiratory failure, sepsis, shock rectal bleeding Interval history: No acute events. Remains on PSV 12/5 and tolerating well. Still on levophed . Remainder is negative. Objective Vital Signs - 12hr 09/19/17 09/19/17 09/19/17 22:00 22:01 22:15 Temperature Pulse Rate 106 H 88 87 Pulse Rate [ From Monitor] Respiratory 19 18 Rate Blood Pressure 114/45 120/43 O2 Sat by Pulse 100 100 Oximetry O2 Sat by Pulse Oximetry [ Assessment] 09/19/17 09/19/17 09/19/17 22:30 22:45 22:49 Temperature Pulse Rate 87 89 83 Pulse Rate [ From Monitor] Respiratory 14 18 18 Rate Blood Pressure 118/50 118/50 111/48 O2 Sat by Pulse 100 100 100 Oximetry O2 Sat by Pulse Oximetry [ Assessment] 09/19/17 09/19/17 09/19/17 23:01 23:09 23:15 Temperature Pulse Rate 86 82 86 Pulse Rate [ From Monitor] Respiratory 19 20 18 Rate Blood Pressure 119/50 119/50 119/48 O2 Sat by Pulse 100 100 100 Oximetry O2 Sat by Pulse Oximetry [ Assessment] 09/19/17 09/19/17 09/19/17 23:31 23:45 23:52 Temperature Pulse Rate 88 94 H 87 Pulse Rate [ From Monitor] Respiratory 18 19 Rate Blood Pressure 120/48 124/54 124/54 O2 Sat by Pulse 100 100 100 Oximetry O2 Sat by Pulse Oximetry [ Assessment] 09/20/17 09/20/17 09/20/17 00:00 00:15 00:31 Temperature 98.8 F Pulse Rate 92 H 101 H 92 H Pulse Rate [ From Monitor] Respiratory 15 17 15 Rate Blood Pressure 140/50 140/50 128/53 O2 Sat by Pulse 100 100 100 Oximetry O2 Sat by Pulse Oximetry [ Assessment] 09/20/17 09/20/17 09/20/17 00:45 01:00 01:15 Temperature Pulse Rate 87 100 H 115 H Pulse Rate [ From Monitor] Respiratory 18 16 20 Rate Blood Pressure 120/49 132/72 132/72 O2 Sat by Pulse 100 100 100 Oximetry O2 Sat by Pulse Oximetry [ Assessment] 09/20/17 09/20/17 09/20/17 01:31 01:45 02:01 Temperature Pulse Rate 116 H 94 H 97 H Pulse Rate [ From Monitor] Respiratory 19 17 18 Rate Blood Pressure 108/61 113/53 104/47 O2 Sat by Pulse 100 100 100 Oximetry O2 Sat by Pulse Oximetry [ Assessment] 09/20/17 09/20/17 09/20/17 02:15 02:30 02:45 Temperature Pulse Rate 97 H 95 H 104 H Pulse Rate [ From Monitor] Respiratory 17 18 16 Rate Blood Pressure 103/55 110/56 110/56 O2 Sat by Pulse 100 100 100 Oximetry O2 Sat by Pulse Oximetry [ Assessment] 09/20/17 09/20/17 09/20/17 03:00 03:03 03:15 Temperature Pulse Rate 93 H 87 119 H Pulse Rate [ From Monitor] Respiratory 18 16 Rate Blood Pressure 113/66 108/57 O2 Sat by Pulse 100 100 98 Oximetry O2 Sat by Pulse Oximetry [ Assessment] 09/20/17 09/20/17 09/20/17 03:31 03:45 04:00 Temperature 98.7 F Pulse Rate 122 H 104 H 105 H Pulse Rate [ From Monitor] Respiratory 28 H 15 18 Rate Blood Pressure 126/56 130/55 143/53 O2 Sat by Pulse 100 100 Oximetry O2 Sat by Pulse Oximetry [ Assessment] 09/20/17 09/20/17 09/20/17 04:15 04:30 04:45 Temperature Pulse Rate 103 H 104 H 107 H Pulse Rate [ From Monitor] Respiratory 20 22 25 H Rate Blood Pressure 114/65 121/58 121/58 O2 Sat by Pulse Oximetry O2 Sat by Pulse Oximetry [ Assessment] 09/20/17 09/20/17 09/20/17 05:00 05:15 05:30 Temperature Pulse Rate 96 H 93 H 114 H Pulse Rate [ From Monitor] Respiratory 19 18 22 Rate Blood Pressure 112/57 113/45 126/61 O2 Sat by Pulse 100 Oximetry O2 Sat by Pulse Oximetry [ Assessment] 09/20/17 09/20/17 09/20/17 05:45 06:01 06:15 Temperature Pulse Rate 105 H 97 H 101 H Pulse Rate [ From Monitor] Respiratory 22 18 19 Rate Blood Pressure 117/46 120/38 117/49 O2 Sat by Pulse 100 100 Oximetry O2 Sat by Pulse Oximetry [ Assessment] 09/20/17 09/20/17 09/20/17 06:30 06:45 07:00 Temperature Pulse Rate 108 H 94 H 102 H Pulse Rate [ From Monitor] Respiratory 19 20 18 Rate Blood Pressure 114/54 109/45 116/49 O2 Sat by Pulse 100 100 Oximetry O2 Sat by Pulse Oximetry [ Assessment] 09/20/17 09/20/17 09/20/17 07:15 07:31 07:45 Temperature Pulse Rate 120 H 119 H 97 H Pulse Rate [ From Monitor] Respiratory 23 25 H 19 Rate Blood Pressure 116/49 117/57 99/40 O2 Sat by Pulse 100 100 100 Oximetry O2 Sat by Pulse Oximetry [ Assessment] 09/20/17 09/20/17 09/20/17 08:00 08:15 08:30 Temperature 98.1 F Pulse Rate 104 H 106 H 96 H Pulse Rate [ 102 H From Monitor] Respiratory 24 21 16 Rate Blood Pressure 106/53 114/44 97/45 O2 Sat by Pulse 100 100 100 Oximetry O2 Sat by Pulse Oximetry [ Assessment] 09/20/17 09/20/17 09/20/17 08:52 08:59 09:08 Temperature Pulse Rate 93 H 115 H Pulse Rate [ From Monitor] Respiratory 20 Rate Blood Pressure 121/43 121/43 O2 Sat by Pulse 100 100 Oximetry O2 Sat by Pulse 100 Oximetry [ Assessment] Constitutional: no acute distress, other (critically ill on vent, obese) Eyes: non-icteric ENT: oropharynx dry Neck: supple, no lymphadenopathy, no JVD (large neck), other (trach in position , no bleeding) Effort: mildly labored Ascultation: Bilateral: clear ( ), diminished breath sounds (Limited expansion) , wheezes (faint expiratory wheezes), rhonchi (sporadic), other (coarse BS bilaterally) Cardiovascular: regular rate and rhythm Gastrointestinal: absent bowel sounds, tender, other (abdominal incision with dressing , obese. Drain in place, no bleeding) Integumentary: normal Extremities: no cyanosis, pink and warm, edema Neurologic: non-focal exam, pupils equal and round Psychiatric: mood appropriate, affect normal CBC and BMP: 09/19/17 06:00 09/20/17 04:46 ABG, PT/INR, D-dimer: ABG POC ABG pH 7.347 (7.35-7.45) L 09/13/17 11:36 ABG pH 7.323 pH Units (7.350-7.450) L 09/09/17 Unknown POC ABG pCO2 34.3 (35-45) L 09/13/17 11:36 ABG pCO2 41.1 mm Hg 09/09/17 Unknown POC ABG pO2 134 (80-105) H 09/13/17 11:36 ABG pO2 94.1 mm Hg (80.0-90.0) H 09/09/17 Unknown POC ABG HCO3 18.8 09/13/17 11:36 POC ABG Total CO2 20 09/13/17 11:36 POC ABG O2 Sat 99 09/13/17 11:36 ABG O2 Saturation 97.2 % (95.0-99.0) 09/09/17 Unknown PT/INR, D-dimer PT 15.4 Sec. (12.2-14.9) H 09/15/17 12:45 INR 1.16 (0.87-1.13) H 09/15/17 12:45 Abnormal lab findings: Abnormal Labs 08/08/17 08/08/17 08/09/17 21:23 21:31 11:19 WBC 15.7 H RBC 2.93 L Hgb 8.7 L Hct 26.8 L MCV MCH RDW 19.2 H Plt Count Lymph % (Auto) Morgan % (Auto) Morgan # Seg Neutrophils % Seg Neuts % (Manual) Lymphocytes % (Manual) Monocytes % (Manual) Nucleated RBC % Seg Neutrophils # Seg Neutrophils # Man Lymphocytes # (Manual) Monocytes # (Manual) Eosinophils # (Manual) Basophils # (Manual) PT INR POC ABG pH 7.490 H ABG pH POC ABG pCO2 POC ABG pO2 122 H ABG pO2 ABG O2 Saturation ABG Base Excess ABG Hemoglobin Oxyhemoglobin Sodium Potassium Chloride Carbon Dioxide BUN Creatinine Glucose POC Glucose Calcium Phosphorus Magnesium Iron TIBC Ferritin Total Bilirubin AST ALT Alkaline Phosphatase Total Creatine Kinase Troponin T 0.133 H* C-Reactive Protein Total Protein Albumin Triglycerides HDL Cholesterol 26 L Miscellaneous Test Crossmatch 08/09/17 08/10/17 08/10/17 13:25 04:45 04:45 WBC 15.5 H RBC 2.97 L Hgb 8.9 L Hct 27.0 L MCV MCH RDW 19.2 H Plt Count Lymph % (Auto) Morgan % (Auto) Morgan # Seg Neutrophils % Seg Neuts % (Manual) 73.0 H Lymphocytes % (Manual) 7.0 L Monocytes % (Manual) 14.0 H Nucleated RBC % Seg Neutrophils # Seg Neutrophils # Man 11.3 H Lymphocytes # (Manual) 1.1 L Monocytes # (Manual) 2.2 H Eosinophils # (Manual) Basophils # (Manual) 0.2 H PT INR POC ABG pH ABG pH POC ABG pCO2 POC ABG pO2 ABG pO2 ABG O2 Saturation ABG Base Excess ABG Hemoglobin Oxyhemoglobin Sodium Potassium 3.3 L Chloride 97.3 L Carbon Dioxide 21 L BUN 23 H Creatinine 6.5 H Glucose POC Glucose Calcium 7.3 L Phosphorus Magnesium Iron TIBC Ferritin Total Bilirubin AST ALT Alkaline Phosphatase 138 H Total Creatine Kinase Troponin T 0.132 H* C-Reactive Protein Total Protein 4.8 L Albumin 1.4 L Triglycerides HDL Cholesterol Miscellaneous Test Crossmatch 08/11/17 08/11/17 08/12/17 04:00 04:00 05:50 WBC 19.3 H RBC 3.10 L Hgb 9.5 L Hct 28.2 L MCV MCH RDW 19.2 H Plt Count 463 H Lymph % (Auto) 7.5 L Morgan % (Auto) 14.6 H Morgan # 2.8 H Seg Neutrophils % 77.0 H Seg Neuts % (Manual) Lymphocytes % (Manual) Monocytes % (Manual) Nucleated RBC % Seg Neutrophils # 14.8 H Seg Neutrophils # Man Lymphocytes # (Manual) Monocytes # (Manual) Eosinophils # (Manual) Basophils # (Manual) PT INR POC ABG pH ABG pH POC ABG pCO2 POC ABG pO2 ABG pO2 ABG O2 Saturation ABG Base Excess ABG Hemoglobin Oxyhemoglobin Sodium 136 L 136 L Potassium 3.3 L Chloride 96.3 L 96.6 L Carbon Dioxide BUN 26 H 26 H Creatinine 6.4 H 6.2 H Glucose 135 H 133 H POC Glucose Calcium 8.2 L Phosphorus Magnesium 1.30 L Iron TIBC Ferritin Total Bilirubin AST ALT Alkaline Phosphatase 139 H Total Creatine Kinase Troponin T C-Reactive Protein Total Protein 5.5 L Albumin 1.7 L Triglycerides HDL Cholesterol Miscellaneous Test Crossmatch 08/12/17 08/12/17 08/12/17 05:50 05:50 05:50 WBC 20.1 H RBC 3.06 L Hgb 9.3 L Hct 27.9 L MCV MCH RDW 18.4 H Plt Count 471 H Lymph % (Auto) Morgan % (Auto) Morgan # Seg Neutrophils % Seg Neuts % (Manual) 85.0 H Lymphocytes % (Manual) 8.0 L Monocytes % (Manual) Nucleated RBC % Seg Neutrophils # Seg Neutrophils # Man 17.1 H Lymphocytes # (Manual) Monocytes # (Manual) 1.0 H Eosinophils # (Manual) Basophils # (Manual) PT 15.2 H INR 1.14 H POC ABG pH ABG pH POC ABG pCO2 POC ABG pO2 ABG pO2 ABG O2 Saturation ABG Base Excess ABG Hemoglobin Oxyhemoglobin Sodium Potassium Chloride Carbon Dioxide BUN Creatinine Glucose POC Glucose Calcium Phosphorus Magnesium Iron TIBC Ferritin Total Bilirubin AST ALT Alkaline Phosphatase Total Creatine Kinase Troponin T C-Reactive Protein 28.90 H Total Protein Albumin Triglycerides HDL Cholesterol Miscellaneous Test Crossmatch 08/12/17 08/13/17 08/13/17 16:23 06:14 06:14 WBC 21.8 H RBC 3.11 L Hgb 9.4 L Hct 28.2 L MCV MCH RDW 18.2 H Plt Count 492 H Lymph % (Auto) Morgan % (Auto) Morgan # Seg Neutrophils % Seg Neuts % (Manual) 73.0 H Lymphocytes % (Manual) 2.0 L Monocytes % (Manual) 15 H Nucleated RBC % Seg Neutrophils # Seg Neutrophils # Man 15.9 H Lymphocytes # (Manual) 0.4 L Monocytes # (Manual) 2.4 H Eosinophils # (Manual) Basophils # (Manual) PT INR POC ABG pH ABG pH POC ABG pCO2 POC ABG pO2 ABG pO2 ABG O2 Saturation ABG Base Excess ABG Hemoglobin Oxyhemoglobin Sodium Potassium Chloride 96.2 L Carbon Dioxide BUN 28 H Creatinine 5.6 H Glucose 114 H POC Glucose Calcium Phosphorus Magnesium Iron TIBC Ferritin Total Bilirubin AST ALT Alkaline Phosphatase Total Creatine Kinase Troponin T C-Reactive Protein 26.10 H Total Protein Albumin Triglycerides HDL Cholesterol Miscellaneous Test Crossmatch 08/13/17 08/14/17 08/14/17 16:39 04:00 04:00 WBC 22.1 H RBC 3.25 L Hgb 9.9 L Hct 29.5 L MCV MCH RDW 17.9 H Plt Count 525 H Lymph % (Auto) Morgan % (Auto) Morgan # Seg Neutrophils % Seg Neuts % (Manual) 74.0 H Lymphocytes % (Manual) 8.0 L Monocytes % (Manual) 12.0 H Nucleated RBC % Seg Neutrophils # Seg Neutrophils # Man 16.4 H Lymphocytes # (Manual) Monocytes # (Manual) 2.7 H Eosinophils # (Manual) Basophils # (Manual) PT INR POC ABG pH ABG pH POC ABG pCO2 POC ABG pO2 ABG pO2 ABG O2 Saturation ABG Base Excess ABG Hemoglobin Oxyhemoglobin Sodium 134 L Potassium 3.3 L Chloride 93.3 L Carbon Dioxide BUN 27 H Creatinine 6.0 H Glucose 152 H POC Glucose 151 H Calcium Phosphorus Magnesium Iron TIBC Ferritin Total Bilirubin AST ALT Alkaline Phosphatase Total Creatine Kinase Troponin T C-Reactive Protein Total Protein Albumin Triglycerides HDL Cholesterol Miscellaneous Test Crossmatch 08/15/17 08/16/17 08/16/17 09:10 09:50 09:50 WBC 31.1 H RBC 3.21 L Hgb 9.6 L Hct 29.3 L MCV MCH RDW 18.1 H Plt Count 642 H Lymph % (Auto) Morgan % (Auto) Morgan # Seg Neutrophils % Seg Neuts % (Manual) 74.0 H Lymphocytes % (Manual) 4.0 L Monocytes % (Manual) 9.0 H Nucleated RBC % Seg Neutrophils # Seg Neutrophils # Man 23.0 H Lymphocytes # (Manual) Monocytes # (Manual) 2.8 H Eosinophils # (Manual) Basophils # (Manual) PT INR POC ABG pH ABG pH POC ABG pCO2 POC ABG pO2 ABG pO2 ABG O2 Saturation ABG Base Excess ABG Hemoglobin Oxyhemoglobin Sodium 136 L 136 L Potassium 3.5 L Chloride 97.6 L 94.9 L Carbon Dioxide BUN 27 H 28 H Creatinine 5.6 H 5.5 H Glucose 117 H 103 H POC Glucose Calcium Phosphorus Magnesium Iron TIBC Ferritin Total Bilirubin AST ALT Alkaline Phosphatase 137 H Total Creatine Kinase Troponin T C-Reactive Protein Total Protein 5.4 L Albumin 1.5 L Triglycerides HDL Cholesterol Miscellaneous Test Crossmatch 08/16/17 08/17/17 08/17/17 09:50 05:00 06:26 WBC RBC Hgb Hct MCV MCH RDW Plt Count Lymph % (Auto) Morgan % (Auto) Morgan # Seg Neutrophils % Seg Neuts % (Manual) Lymphocytes % (Manual) Monocytes % (Manual) Nucleated RBC % Seg Neutrophils # Seg Neutrophils # Man Lymphocytes # (Manual) Monocytes # (Manual) Eosinophils # (Manual) Basophils # (Manual) PT INR POC ABG pH ABG pH POC ABG pCO2 POC ABG pO2 ABG pO2 ABG O2 Saturation ABG Base Excess ABG Hemoglobin Oxyhemoglobin Sodium 134 L Potassium 3.0 L Chloride 97.8 L Carbon Dioxide BUN 30 H Creatinine 5.3 H Glucose 147 H POC Glucose 165 H Calcium 7.5 L Phosphorus Magnesium Iron TIBC Ferritin Total Bilirubin AST ALT Alkaline Phosphatase Total Creatine Kinase Troponin T C-Reactive Protein 32.30 H Total Protein Albumin Triglycerides HDL Cholesterol Miscellaneous Test Crossmatch 08/17/17 08/17/17 08/17/17 10:56 11:20 11:20 WBC 39.1 H RBC 3.10 L Hgb 9.2 L Hct 28.6 L MCV MCH RDW 18.3 H Plt Count 580 H Lymph % (Auto) Morgan % (Auto) Morgan # Seg Neutrophils % Seg Neuts % (Manual) 89.5 H Lymphocytes % (Manual) 3.5 L Monocytes % (Manual) Nucleated RBC % Seg Neutrophils # Seg Neutrophils # Man 35.0 H Lymphocytes # (Manual) Monocytes # (Manual) 2.5 H Eosinophils # (Manual) Basophils # (Manual) 0.2 H PT INR POC ABG pH 7.464 H ABG pH POC ABG pCO2 34.1 L POC ABG pO2 75 L ABG pO2 ABG O2 Saturation ABG Base Excess ABG Hemoglobin Oxyhemoglobin Sodium Potassium Chloride Carbon Dioxide BUN Creatinine Glucose POC Glucose Calcium Phosphorus Magnesium Iron TIBC Ferritin Total Bilirubin AST ALT Alkaline Phosphatase Total Creatine Kinase Troponin T C-Reactive Protein Total Protein Albumin Triglycerides HDL Cholesterol Miscellaneous Test Flexitest 1 H Crossmatch 08/17/17 08/17/17 08/17/17 11:20 16:57 20:20 WBC 34.4 H RBC 2.81 L Hgb 8.4 L Hct 26.0 L MCV MCH RDW 17.8 H Plt Count 455 H Lymph % (Auto) Morgan % (Auto) Morgan # Seg Neutrophils % Seg Neuts % (Manual) Lymphocytes % (Manual) 3.5 L Monocytes % (Manual) Nucleated RBC % 5.0 H Seg Neutrophils # Seg Neutrophils # Man 16.5 H Lymphocytes # (Manual) Monocytes # (Manual) 1.0 H Eosinophils # (Manual) Basophils # (Manual) PT 16.0 H INR 1.29 H POC ABG pH ABG pH POC ABG pCO2 POC ABG pO2 ABG pO2 ABG O2 Saturation ABG Base Excess ABG Hemoglobin Oxyhemoglobin Sodium 135 L Potassium 2.9 L* Chloride Carbon Dioxide 20 L BUN 32 H Creatinine 5.4 H Glucose 129 H POC Glucose Calcium 7.5 L Phosphorus Magnesium 1.50 L Iron TIBC Ferritin Total Bilirubin AST 85 H ALT Alkaline Phosphatase Total Creatine Kinase Troponin T C-Reactive Protein Total Protein 4.0 L D Albumin 1.6 L Triglycerides HDL Cholesterol Miscellaneous Test Crossmatch 08/17/17 08/17/17 08/18/17 20:54 23:47 04:26 WBC RBC Hgb Hct MCV MCH RDW Plt Count Lymph % (Auto) Morgan % (Auto) Morgan # Seg Neutrophils % Seg Neuts % (Manual) Lymphocytes % (Manual) Monocytes % (Manual) Nucleated RBC % Seg Neutrophils # Seg Neutrophils # Man Lymphocytes # (Manual) Monocytes # (Manual) Eosinophils # (Manual) Basophils # (Manual) PT INR POC ABG pH 7.557 H ABG pH POC ABG pCO2 23.1 L 29.0 L POC ABG pO2 187 H 148 H ABG pO2 ABG O2 Saturation ABG Base Excess ABG Hemoglobin Oxyhemoglobin Sodium Potassium Chloride Carbon Dioxide BUN Creatinine Glucose POC Glucose 188 H Calcium Phosphorus Magnesium Iron TIBC Ferritin Total Bilirubin AST ALT Alkaline Phosphatase Total Creatine Kinase Troponin T C-Reactive Protein Total Protein Albumin Triglycerides HDL Cholesterol Miscellaneous Test Crossmatch 08/18/17 08/18/17 08/18/17 05:51 11:44 17:07 WBC RBC Hgb Hct MCV MCH RDW Plt Count Lymph % (Auto) Morgan % (Auto) Morgan # Seg Neutrophils % Seg Neuts % (Manual) Lymphocytes % (Manual) Monocytes % (Manual) Nucleated RBC % Seg Neutrophils # Seg Neutrophils # Man Lymphocytes # (Manual) Monocytes # (Manual) Eosinophils # (Manual) Basophils # (Manual) PT INR POC ABG pH ABG pH POC ABG pCO2 POC ABG pO2 ABG pO2 ABG O2 Saturation ABG Base Excess ABG Hemoglobin Oxyhemoglobin Sodium Potassium Chloride Carbon Dioxide BUN Creatinine Glucose POC Glucose 202 H 195 H 182 H Calcium Phosphorus Magnesium Iron TIBC Ferritin Total Bilirubin AST ALT Alkaline Phosphatase Total Creatine Kinase Troponin T C-Reactive Protein Total Protein Albumin Triglycerides HDL Cholesterol Miscellaneous Test Crossmatch 08/18/17 08/18/17 08/18/17 23:45 Unknown Unknown WBC 39.0 H RBC 2.84 L Hgb 8.4 L Hct 26.5 L MCV MCH RDW 18.0 H Plt Count 476 H Lymph % (Auto) Morgan % (Auto) Morgan # Seg Neutrophils % Seg Neuts % (Manual) Lymphocytes % (Manual) 7.0 L Monocytes % (Manual) 10.0 H Nucleated RBC % 3.0 H Seg Neutrophils # Seg Neutrophils # Man 15.6 H Lymphocytes # (Manual) Monocytes # (Manual) 3.9 H Eosinophils # (Manual) Basophils # (Manual) PT INR POC ABG pH ABG pH POC ABG pCO2 POC ABG pO2 ABG pO2 ABG O2 Saturation ABG Base Excess ABG Hemoglobin Oxyhemoglobin Sodium Potassium Chloride Carbon Dioxide 19 L BUN 34 H Creatinine 5.6 H Glucose 201 H POC Glucose 163 H Calcium 7.8 L Phosphorus 1.90 L D Magnesium 1.60 L Iron TIBC Ferritin Total Bilirubin AST ALT Alkaline Phosphatase Total Creatine Kinase Troponin T C-Reactive Protein Total Protein Albumin Triglycerides HDL Cholesterol Miscellaneous Test Crossmatch 08/19/17 08/19/17 08/19/17 04:18 05:00 05:00 WBC 40.0 H RBC 2.46 L Hgb 7.3 L Hct 22.6 L MCV MCH RDW 18.1 H Plt Count Lymph % (Auto) Morgan % (Auto) Morgan # Seg Neutrophils % Seg Neuts % (Manual) Lymphocytes % (Manual) 8.0 L Monocytes % (Manual) Nucleated RBC % 2.0 H Seg Neutrophils # Seg Neutrophils # Man 16.4 H Lymphocytes # (Manual) Monocytes # (Manual) 1.2 H Eosinophils # (Manual) 1.2 H Basophils # (Manual) PT INR POC ABG pH 7.463 H ABG pH POC ABG pCO2 29.7 L POC ABG pO2 134 H ABG pO2 ABG O2 Saturation ABG Base Excess ABG Hemoglobin Oxyhemoglobin Sodium Potassium 5.1 H D Chloride Carbon Dioxide 20 L BUN 40 H Creatinine 5.3 H Glucose 128 H POC Glucose Calcium 7.8 L Phosphorus 1.90 L Magnesium Iron TIBC Ferritin Total Bilirubin AST ALT Alkaline Phosphatase Total Creatine Kinase Troponin T C-Reactive Protein Total Protein Albumin Triglycerides HDL Cholesterol Miscellaneous Test Crossmatch 08/19/17 08/19/17 08/19/17 05:19 07:37 09:52 WBC 45.0 H* RBC 2.50 L Hgb 7.5 L Hct 24.5 L MCV 98 H MCH RDW 18.4 H Plt Count Lymph % (Auto) Morgan % (Auto) Morgan # Seg Neutrophils % Seg Neuts % (Manual) 81.5 H Lymphocytes % (Manual) 4.0 L Monocytes % (Manual) Nucleated RBC % 1.0 H Seg Neutrophils # Seg Neutrophils # Man 36.7 H Lymphocytes # (Manual) Monocytes # (Manual) Eosinophils # (Manual) Basophils # (Manual) PT INR POC ABG pH ABG pH POC ABG pCO2 POC ABG pO2 ABG pO2 ABG O2 Saturation ABG Base Excess ABG Hemoglobin Oxyhemoglobin Sodium Potassium Chloride Carbon Dioxide BUN Creatinine Glucose POC Glucose 142 H Calcium Phosphorus Magnesium Iron TIBC Ferritin Total Bilirubin AST ALT Alkaline Phosphatase Total Creatine Kinase Troponin T C-Reactive Protein 34.20 H Total Protein Albumin Triglycerides HDL Cholesterol Miscellaneous Test Crossmatch 08/19/17 08/19/17 08/20/17 11:16 18:12 00:35 WBC RBC Hgb Hct MCV MCH RDW Plt Count Lymph % (Auto) Morgan % (Auto) Morgan # Seg Neutrophils % Seg Neuts % (Manual) Lymphocytes % (Manual) Monocytes % (Manual) Nucleated RBC % Seg Neutrophils # Seg Neutrophils # Man Lymphocytes # (Manual) Monocytes # (Manual) Eosinophils # (Manual) Basophils # (Manual) PT INR POC ABG pH ABG pH POC ABG pCO2 POC ABG pO2 ABG pO2 ABG O2 Saturation ABG Base Excess ABG Hemoglobin Oxyhemoglobin Sodium Potassium Chloride Carbon Dioxide BUN Creatinine Glucose POC Glucose 143 H 137 H 164 H Calcium Phosphorus Magnesium Iron TIBC Ferritin Total Bilirubin AST ALT Alkaline Phosphatase Total Creatine Kinase Troponin T C-Reactive Protein Total Protein Albumin Triglycerides HDL Cholesterol Miscellaneous Test Crossmatch 08/20/17 08/20/17 08/20/17 03:20 03:20 04:00 WBC 48.0 H* RBC 2.55 L Hgb 7.6 L Hct 23.4 L MCV MCH RDW 18.4 H Plt Count Lymph % (Auto) Morgan % (Auto) Morgan # Seg Neutrophils % Seg Neuts % (Manual) 90.0 H Lymphocytes % (Manual) 3.0 L Monocytes % (Manual) Nucleated RBC % Seg Neutrophils # Seg Neutrophils # Man 43.2 H Lymphocytes # (Manual) Monocytes # (Manual) 1.4 H Eosinophils # (Manual) 0.5 H Basophils # (Manual) PT INR POC ABG pH 7.499 H ABG pH POC ABG pCO2 29.1 L POC ABG pO2 ABG pO2 ABG O2 Saturation ABG Base Excess ABG Hemoglobin Oxyhemoglobin Sodium 135 L Potassium Chloride Carbon Dioxide BUN 28 H Creatinine 4.0 H Glucose 140 H POC Glucose Calcium 8.0 L Phosphorus 1.70 L Magnesium 1.60 L Iron TIBC Ferritin Total Bilirubin AST ALT Alkaline Phosphatase Total Creatine Kinase Troponin T C-Reactive Protein Total Protein Albumin Triglycerides HDL Cholesterol Miscellaneous Test Crossmatch 08/20/17 08/20/17 08/20/17 05:02 12:05 13:12 WBC RBC Hgb Hct MCV MCH RDW Plt Count Lymph % (Auto) Morgan % (Auto) Morgan # Seg Neutrophils % Seg Neuts % (Manual) Lymphocytes % (Manual) Monocytes % (Manual) Nucleated RBC % Seg Neutrophils # Seg Neutrophils # Man Lymphocytes # (Manual) Monocytes # (Manual) Eosinophils # (Manual) Basophils # (Manual) PT INR POC ABG pH 7.537 H ABG pH POC ABG pCO2 27.9 L POC ABG pO2 79 L ABG pO2 ABG O2 Saturation ABG Base Excess ABG Hemoglobin Oxyhemoglobin Sodium Potassium Chloride Carbon Dioxide BUN Creatinine Glucose POC Glucose 158 H 203 H Calcium Phosphorus Magnesium Iron TIBC Ferritin Total Bilirubin AST ALT Alkaline Phosphatase Total Creatine Kinase Troponin T C-Reactive Protein Total Protein Albumin Triglycerides HDL Cholesterol Miscellaneous Test Crossmatch 08/20/17 08/21/17 08/21/17 17:13 00:47 03:14 WBC RBC Hgb Hct MCV MCH RDW Plt Count Lymph % (Auto) Morgan % (Auto) Morgan # Seg Neutrophils % Seg Neuts % (Manual) Lymphocytes % (Manual) Monocytes % (Manual) Nucleated RBC % Seg Neutrophils # Seg Neutrophils # Man Lymphocytes # (Manual) Monocytes # (Manual) Eosinophils # (Manual) Basophils # (Manual) PT INR POC ABG pH 7.481 H ABG pH POC ABG pCO2 29.6 L POC ABG pO2 ABG pO2 ABG O2 Saturation ABG Base Excess ABG Hemoglobin Oxyhemoglobin Sodium Potassium Chloride Carbon Dioxide BUN Creatinine Glucose POC Glucose 188 H 109 H Calcium Phosphorus Magnesium Iron TIBC Ferritin Total Bilirubin AST ALT Alkaline Phosphatase Total Creatine Kinase Troponin T C-Reactive Protein Total Protein Albumin Triglycerides HDL Cholesterol Miscellaneous Test Crossmatch 08/21/17 08/21/17 08/21/17 05:05 06:50 06:50 WBC 44.7 H* RBC 2.41 L Hgb 7.1 L Hct 22.1 L MCV MCH RDW 18.3 H Plt Count Lymph % (Auto) Morgan % (Auto) Morgan # Seg Neutrophils % Seg Neuts % (Manual) 89.0 H Lymphocytes % (Manual) 0 L Monocytes % (Manual) Nucleated RBC % 1.0 H Seg Neutrophils # Seg Neutrophils # Man 39.8 H Lymphocytes # (Manual) 0.0 L Monocytes # (Manual) 1.3 H Eosinophils # (Manual) Basophils # (Manual) PT INR POC ABG pH ABG pH POC ABG pCO2 POC ABG pO2 ABG pO2 ABG O2 Saturation ABG Base Excess ABG Hemoglobin Oxyhemoglobin Sodium 135 L Potassium Chloride Carbon Dioxide BUN 39 H Creatinine 4.4 H Glucose 147 H POC Glucose 166 H Calcium 8.1 L Phosphorus Magnesium Iron TIBC Ferritin Total Bilirubin AST ALT < 5 L Alkaline Phosphatase 164 H Total Creatine Kinase Troponin T C-Reactive Protein Total Protein 4.7 L Albumin 1.4 L Triglycerides HDL Cholesterol Miscellaneous Test Crossmatch 08/21/17 08/21/17 08/21/17 08:00 12:21 17:02 WBC RBC Hgb Hct MCV MCH RDW Plt Count Lymph % (Auto) Morgan % (Auto) Morgan # Seg Neutrophils % Seg Neuts % (Manual) Lymphocytes % (Manual) Monocytes % (Manual) Nucleated RBC % Seg Neutrophils # Seg Neutrophils # Man Lymphocytes # (Manual) Monocytes # (Manual) Eosinophils # (Manual) Basophils # (Manual) PT INR POC ABG pH ABG pH POC ABG pCO2 POC ABG pO2 ABG pO2 ABG O2 Saturation ABG Base Excess ABG Hemoglobin Oxyhemoglobin Sodium Potassium Chloride Carbon Dioxide BUN Creatinine Glucose POC Glucose 147 H 135 H Calcium Phosphorus Magnesium Iron TIBC Ferritin Total Bilirubin AST ALT Alkaline Phosphatase Total Creatine Kinase Troponin T C-Reactive Protein Total Protein Albumin Triglycerides HDL Cholesterol Miscellaneous Test Crossmatch See Detail 08/21/17 08/22/17 08/22/17 23:38 03:40 03:40 WBC 42.5 H* RBC 2.88 L Hgb 8.5 L Hct 26.3 L MCV MCH RDW 17.9 H Plt Count Lymph % (Auto) Morgan % (Auto) Morgan # Seg Neutrophils % Seg Neuts % (Manual) Lymphocytes % (Manual) 5.0 L Monocytes % (Manual) Nucleated RBC % Seg Neutrophils # Seg Neutrophils # Man 19.6 H Lymphocytes # (Manual) Monocytes # (Manual) 2.6 H Eosinophils # (Manual) Basophils # (Manual) PT INR POC ABG pH ABG pH POC ABG pCO2 POC ABG pO2 ABG pO2 ABG O2 Saturation ABG Base Excess ABG Hemoglobin Oxyhemoglobin Sodium Potassium 3.3 L D Chloride Carbon Dioxide BUN 27 H Creatinine 2.9 H Glucose 144 H POC Glucose 251 H Calcium 8.0 L Phosphorus 2.40 L Magnesium Iron TIBC Ferritin Total Bilirubin AST ALT Alkaline Phosphatase Total Creatine Kinase Troponin T C-Reactive Protein Total Protein Albumin Triglycerides HDL Cholesterol Miscellaneous Test Crossmatch 08/22/17 08/22/17 08/22/17 06:37 08:50 11:25 WBC RBC Hgb Hct MCV MCH RDW Plt Count Lymph % (Auto) Morgan % (Auto) Morgan # Seg Neutrophils % Seg Neuts % (Manual) Lymphocytes % (Manual) Monocytes % (Manual) Nucleated RBC % Seg Neutrophils # Seg Neutrophils # Man Lymphocytes # (Manual) Monocytes # (Manual) Eosinophils # (Manual) Basophils # (Manual) PT INR POC ABG pH ABG pH POC ABG pCO2 POC ABG pO2 ABG pO2 ABG O2 Saturation ABG Base Excess ABG Hemoglobin Oxyhemoglobin Sodium Potassium Chloride Carbon Dioxide BUN Creatinine Glucose POC Glucose 152 H 175 H Calcium Phosphorus Magnesium Iron TIBC Ferritin Total Bilirubin AST ALT Alkaline Phosphatase Total Creatine Kinase Troponin T C-Reactive Protein Total Protein Albumin Triglycerides HDL Cholesterol Miscellaneous Test Flexitest 1 H Crossmatch 08/22/17 08/22/17 08/22/17 16:25 17:56 23:03 WBC RBC Hgb Hct MCV MCH RDW Plt Count Lymph % (Auto) Morgan % (Auto) Morgan # Seg Neutrophils % Seg Neuts % (Manual) Lymphocytes % (Manual) Monocytes % (Manual) Nucleated RBC % Seg Neutrophils # Seg Neutrophils # Man Lymphocytes # (Manual) Monocytes # (Manual) Eosinophils # (Manual) Basophils # (Manual) PT INR POC ABG pH ABG pH POC ABG pCO2 POC ABG pO2 ABG pO2 ABG O2 Saturation ABG Base Excess ABG Hemoglobin Oxyhemoglobin Sodium Potassium Chloride Carbon Dioxide BUN Creatinine Glucose POC Glucose 232 H 192 H Calcium Phosphorus Magnesium Iron TIBC Ferritin Total Bilirubin AST ALT Alkaline Phosphatase Total Creatine Kinase Troponin T C-Reactive Protein 30.70 H Total Protein Albumin Triglycerides HDL Cholesterol Miscellaneous Test Crossmatch 08/23/17 08/23/17 08/23/17 05:36 08:50 12:14 WBC RBC Hgb Hct MCV MCH RDW Plt Count Lymph % (Auto) Morgan % (Auto) Morgan # Seg Neutrophils % Seg Neuts % (Manual) Lymphocytes % (Manual) Monocytes % (Manual) Nucleated RBC % Seg Neutrophils # Seg Neutrophils # Man Lymphocytes # (Manual) Monocytes # (Manual) Eosinophils # (Manual) Basophils # (Manual) PT INR POC ABG pH ABG pH POC ABG pCO2 POC ABG pO2 ABG pO2 ABG O2 Saturation ABG Base Excess ABG Hemoglobin Oxyhemoglobin Sodium Potassium Chloride 107.1 H Carbon Dioxide BUN 49 H Creatinine 3.3 H Glucose 172 H POC Glucose 206 H 238 H Calcium Phosphorus Magnesium 2.40 H Iron TIBC Ferritin Total Bilirubin AST ALT Alkaline Phosphatase Total Creatine Kinase Troponin T C-Reactive Protein Total Protein Albumin Triglycerides HDL Cholesterol Miscellaneous Test Crossmatch 08/23/17 08/23/17 08/24/17 17:21 23:13 04:00 WBC 34.2 H RBC 2.86 L Hgb 8.4 L Hct 25.9 L MCV MCH RDW 17.9 H Plt Count Lymph % (Auto) Morgan % (Auto) Morgan # Seg Neutrophils % Seg Neuts % (Manual) 85.0 H Lymphocytes % (Manual) 0.5 L Monocytes % (Manual) Nucleated RBC % 1.0 H Seg Neutrophils # Seg Neutrophils # Man 29.1 H Lymphocytes # (Manual) 0.2 L Monocytes # (Manual) 2.4 H Eosinophils # (Manual) Basophils # (Manual) PT INR POC ABG pH ABG pH POC ABG pCO2 POC ABG pO2 ABG pO2 ABG O2 Saturation ABG Base Excess ABG Hemoglobin Oxyhemoglobin Sodium Potassium Chloride Carbon Dioxide BUN Creatinine Glucose POC Glucose 226 H 183 H Calcium Phosphorus Magnesium Iron TIBC Ferritin Total Bilirubin AST ALT Alkaline Phosphatase Total Creatine Kinase Troponin T C-Reactive Protein Total Protein Albumin Triglycerides HDL Cholesterol Miscellaneous Test Crossmatch 08/24/17 08/24/17 08/24/17 05:06 09:30 12:04 WBC RBC Hgb Hct MCV MCH RDW Plt Count Lymph % (Auto) Morgan % (Auto) Morgan # Seg Neutrophils % Seg Neuts % (Manual) Lymphocytes % (Manual) Monocytes % (Manual) Nucleated RBC % Seg Neutrophils # Seg Neutrophils # Man Lymphocytes # (Manual) Monocytes # (Manual) Eosinophils # (Manual) Basophils # (Manual) PT INR POC ABG pH ABG pH POC ABG pCO2 POC ABG pO2 ABG pO2 ABG O2 Saturation ABG Base Excess ABG Hemoglobin Oxyhemoglobin Sodium Potassium Chloride Carbon Dioxide BUN 46 H Creatinine 2.5 H Glucose 176 H POC Glucose 201 H 181 H Calcium Phosphorus Magnesium Iron TIBC Ferritin Total Bilirubin AST ALT Alkaline Phosphatase Total Creatine Kinase Troponin T C-Reactive Protein Total Protein Albumin Triglycerides HDL Cholesterol Miscellaneous Test Crossmatch 08/24/17 08/24/17 08/25/17 18:04 23:05 05:05 WBC RBC Hgb Hct MCV MCH RDW Plt Count Lymph % (Auto) Morgan % (Auto) Morgan # Seg Neutrophils % Seg Neuts % (Manual) Lymphocytes % (Manual) Monocytes % (Manual) Nucleated RBC % Seg Neutrophils # Seg Neutrophils # Man Lymphocytes # (Manual) Monocytes # (Manual) Eosinophils # (Manual) Basophils # (Manual) PT INR POC ABG pH ABG pH POC ABG pCO2 POC ABG pO2 ABG pO2 ABG O2 Saturation ABG Base Excess ABG Hemoglobin Oxyhemoglobin Sodium Potassium Chloride Carbon Dioxide BUN Creatinine Glucose POC Glucose 189 H 175 H 190 H Calcium Phosphorus Magnesium Iron TIBC Ferritin Total Bilirubin AST ALT Alkaline Phosphatase Total Creatine Kinase Troponin T C-Reactive Protein Total Protein Albumin Triglycerides HDL Cholesterol Miscellaneous Test Crossmatch 08/25/17 08/25/17 08/26/17 07:02 11:53 05:30 WBC 33.5 H RBC 2.47 L Hgb 7.3 L Hct 23.0 L MCV MCH RDW 21.3 H Plt Count Lymph % (Auto) Morgan % (Auto) Morgan # Seg Neutrophils % Seg Neuts % (Manual) 92.0 H Lymphocytes % (Manual) 1.0 L Monocytes % (Manual) Nucleated RBC % Seg Neutrophils # Seg Neutrophils # Man 30.8 H Lymphocytes # (Manual) 0.3 L Monocytes # (Manual) Eosinophils # (Manual) Basophils # (Manual) PT INR POC ABG pH ABG pH POC ABG pCO2 POC ABG pO2 ABG pO2 ABG O2 Saturation ABG Base Excess ABG Hemoglobin Oxyhemoglobin Sodium Potassium Chloride Carbon Dioxide BUN 32 H Creatinine 5.0 H D Glucose 117 H POC Glucose 191 H Calcium 8.0 L Phosphorus Magnesium Iron TIBC Ferritin Total Bilirubin AST ALT Alkaline Phosphatase Total Creatine Kinase Troponin T C-Reactive Protein Total Protein Albumin Triglycerides HDL Cholesterol Miscellaneous Test Crossmatch 08/26/17 08/26/17 08/26/17 05:30 06:44 13:26 WBC RBC Hgb Hct MCV MCH RDW Plt Count Lymph % (Auto) Morgan % (Auto) Morgan # Seg Neutrophils % Seg Neuts % (Manual) Lymphocytes % (Manual) Monocytes % (Manual) Nucleated RBC % Seg Neutrophils # Seg Neutrophils # Man Lymphocytes # (Manual) Monocytes # (Manual) Eosinophils # (Manual) Basophils # (Manual) PT INR POC ABG pH ABG pH POC ABG pCO2 POC ABG pO2 ABG pO2 ABG O2 Saturation ABG Base Excess ABG Hemoglobin Oxyhemoglobin Sodium Potassium 5.2 H Chloride Carbon Dioxide BUN 80 H Creatinine 3.4 H Glucose 193 H POC Glucose 232 H 207 H Calcium 8.3 L Phosphorus 6.80 H D Magnesium 2.60 H Iron TIBC Ferritin Total Bilirubin AST 135 H ALT Alkaline Phosphatase 211 H Total Creatine Kinase Troponin T C-Reactive Protein Total Protein 4.8 L Albumin 2.0 L Triglycerides HDL Cholesterol Miscellaneous Test Crossmatch 08/27/17 08/27/17 08/27/17 01:08 06:20 06:20 WBC 35.0 H RBC 2.75 L Hgb 8.4 L Hct 25.1 L MCV MCH RDW 21.8 H Plt Count Lymph % (Auto) Morgan % (Auto) Morgan # Seg Neutrophils % Seg Neuts % (Manual) Lymphocytes % (Manual) 4.5 L Monocytes % (Manual) Nucleated RBC % Seg Neutrophils # Seg Neutrophils # Man 31.9 H Lymphocytes # (Manual) Monocytes # (Manual) 1.2 H Eosinophils # (Manual) Basophils # (Manual) PT INR POC ABG pH ABG pH POC ABG pCO2 POC ABG pO2 ABG pO2 ABG O2 Saturation ABG Base Excess ABG Hemoglobin Oxyhemoglobin Sodium Potassium Chloride Carbon Dioxide BUN 61 H Creatinine 2.6 H Glucose 184 H POC Glucose 146 H Calcium Phosphorus 4.90 H D Magnesium Iron TIBC Ferritin Total Bilirubin AST ALT Alkaline Phosphatase Total Creatine Kinase Troponin T C-Reactive Protein Total Protein Albumin Triglycerides HDL Cholesterol Miscellaneous Test Crossmatch 08/27/17 08/27/17 08/27/17 07:01 09:17 12:52 WBC RBC Hgb Hct MCV MCH RDW Plt Count Lymph % (Auto) Morgan % (Auto) Morgan # Seg Neutrophils % Seg Neuts % (Manual) Lymphocytes % (Manual) Monocytes % (Manual) Nucleated RBC % Seg Neutrophils # Seg Neutrophils # Man Lymphocytes # (Manual) Monocytes # (Manual) Eosinophils # (Manual) Basophils # (Manual) PT INR POC ABG pH ABG pH POC ABG pCO2 POC ABG pO2 ABG pO2 ABG O2 Saturation ABG Base Excess ABG Hemoglobin Oxyhemoglobin Sodium Potassium Chloride Carbon Dioxide BUN Creatinine Glucose POC Glucose 165 H 198 H 218 H Calcium Phosphorus Magnesium Iron TIBC Ferritin Total Bilirubin AST ALT Alkaline Phosphatase Total Creatine Kinase Troponin T C-Reactive Protein Total Protein Albumin Triglycerides HDL Cholesterol Miscellaneous Test Crossmatch 08/27/17 08/28/17 08/28/17 17:27 02:13 06:46 WBC RBC Hgb Hct MCV MCH RDW Plt Count Lymph % (Auto) Morgan % (Auto) Morgan # Seg Neutrophils % Seg Neuts % (Manual) Lymphocytes % (Manual) Monocytes % (Manual) Nucleated RBC % Seg Neutrophils # Seg Neutrophils # Man Lymphocytes # (Manual) Monocytes # (Manual) Eosinophils # (Manual) Basophils # (Manual) PT INR POC ABG pH ABG pH POC ABG pCO2 POC ABG pO2 ABG pO2 ABG O2 Saturation ABG Base Excess ABG Hemoglobin Oxyhemoglobin Sodium Potassium Chloride Carbon Dioxide BUN Creatinine Glucose POC Glucose 151 H 155 H 230 H Calcium Phosphorus Magnesium Iron TIBC Ferritin Total Bilirubin AST ALT Alkaline Phosphatase Total Creatine Kinase Troponin T C-Reactive Protein Total Protein Albumin Triglycerides HDL Cholesterol Miscellaneous Test Crossmatch 08/28/17 08/28/17 08/28/17 06:53 06:53 08:19 WBC 31.1 H RBC 2.26 L Hgb 6.8 L Hct 20.9 L MCV MCH RDW 21.7 H Plt Count Lymph % (Auto) Morgan % (Auto) Morgan # Seg Neutrophils % Seg Neuts % (Manual) 83.0 H Lymphocytes % (Manual) 4.0 L Monocytes % (Manual) Nucleated RBC % Seg Neutrophils # Seg Neutrophils # Man 25.8 H Lymphocytes # (Manual) Monocytes # (Manual) Eosinophils # (Manual) Basophils # (Manual) PT INR POC ABG pH ABG pH POC ABG pCO2 POC ABG pO2 ABG pO2 ABG O2 Saturation ABG Base Excess ABG Hemoglobin Oxyhemoglobin Sodium Potassium Chloride Carbon Dioxide BUN 81 H Creatinine 3.4 H Glucose 218 H POC Glucose 239 H Calcium Phosphorus 4.90 H Magnesium Iron TIBC Ferritin Total Bilirubin AST ALT Alkaline Phosphatase Total Creatine Kinase Troponin T C-Reactive Protein Total Protein Albumin Triglycerides HDL Cholesterol Miscellaneous Test Crossmatch 08/28/17 08/28/17 08/28/17 11:56 13:05 13:29 WBC RBC Hgb Hct MCV MCH RDW Plt Count Lymph % (Auto) Morgan % (Auto) Morgan # Seg Neutrophils % Seg Neuts % (Manual) Lymphocytes % (Manual) Monocytes % (Manual) Nucleated RBC % Seg Neutrophils # Seg Neutrophils # Man Lymphocytes # (Manual) Monocytes # (Manual) Eosinophils # (Manual) Basophils # (Manual) PT 16.7 H INR 1.29 H POC ABG pH ABG pH POC ABG pCO2 POC ABG pO2 338 H ABG pO2 ABG O2 Saturation ABG Base Excess ABG Hemoglobin Oxyhemoglobin Sodium Potassium Chloride Carbon Dioxide BUN Creatinine Glucose POC Glucose Calcium Phosphorus Magnesium Iron TIBC Ferritin Total Bilirubin AST ALT Alkaline Phosphatase Total Creatine Kinase Troponin T C-Reactive Protein Total Protein Albumin Triglycerides HDL Cholesterol Miscellaneous Test Crossmatch See Detail 08/28/17 08/28/17 08/29/17 16:22 19:20 04:24 WBC RBC Hgb Hct MCV MCH RDW Plt Count Lymph % (Auto) Morgan % (Auto) Morgan # Seg Neutrophils % Seg Neuts % (Manual) Lymphocytes % (Manual) Monocytes % (Manual) Nucleated RBC % Seg Neutrophils # Seg Neutrophils # Man Lymphocytes # (Manual) Monocytes # (Manual) Eosinophils # (Manual) Basophils # (Manual) PT INR POC ABG pH 7.469 H ABG pH POC ABG pCO2 POC ABG pO2 240 H ABG pO2 ABG O2 Saturation ABG Base Excess ABG Hemoglobin Oxyhemoglobin Sodium Potassium Chloride Carbon Dioxide BUN Creatinine Glucose POC Glucose 209 H 195 H Calcium Phosphorus Magnesium Iron TIBC Ferritin Total Bilirubin AST ALT Alkaline Phosphatase Total Creatine Kinase Troponin T C-Reactive Protein Total Protein Albumin Triglycerides HDL Cholesterol Miscellaneous Test Crossmatch 08/29/17 08/29/17 08/29/17 04:30 04:30 12:07 WBC 44.9 H* RBC Hgb Hct MCV MCH RDW 23.1 H Plt Count Lymph % (Auto) Morgan % (Auto) Morgan # Seg Neutrophils % Seg Neuts % (Manual) 38.0 L Lymphocytes % (Manual) 10.0 L Monocytes % (Manual) 10.0 H Nucleated RBC % 6.0 H Seg Neutrophils # Seg Neutrophils # Man 17.1 H Lymphocytes # (Manual) Monocytes # (Manual) 4.5 H Eosinophils # (Manual) Basophils # (Manual) PT INR POC ABG pH ABG pH POC ABG pCO2 POC ABG pO2 ABG pO2 ABG O2 Saturation ABG Base Excess ABG Hemoglobin Oxyhemoglobin Sodium Potassium Chloride Carbon Dioxide BUN 61 H Creatinine 2.4 H Glucose 226 H POC Glucose 200 H Calcium Phosphorus Magnesium Iron TIBC Ferritin Total Bilirubin AST ALT Alkaline Phosphatase Total Creatine Kinase Troponin T C-Reactive Protein Total Protein Albumin Triglycerides HDL Cholesterol Miscellaneous Test Crossmatch 08/29/17 08/29/17 08/29/17 12:30 12:30 17:23 WBC RBC Hgb Hct MCV MCH RDW Plt Count Lymph % (Auto) Morgan % (Auto) Morgan # Seg Neutrophils % Seg Neuts % (Manual) Lymphocytes % (Manual) Monocytes % (Manual) Nucleated RBC % Seg Neutrophils # Seg Neutrophils # Man Lymphocytes # (Manual) Monocytes # (Manual) Eosinophils # (Manual) Basophils # (Manual) PT INR POC ABG pH ABG pH POC ABG pCO2 POC ABG pO2 ABG pO2 ABG O2 Saturation ABG Base Excess ABG Hemoglobin Oxyhemoglobin Sodium Potassium Chloride Carbon Dioxide BUN Creatinine Glucose POC Glucose 270 H Calcium Phosphorus Magnesium Iron TIBC Ferritin Total Bilirubin AST ALT Alkaline Phosphatase Total Creatine Kinase Troponin T C-Reactive Protein 19.10 H Total Protein Albumin Triglycerides HDL Cholesterol Miscellaneous Test Flexitest 1 H Crossmatch 08/30/17 08/30/17 08/30/17 00:10 01:30 03:31 WBC RBC Hgb Hct MCV MCH RDW Plt Count Lymph % (Auto) Morgan % (Auto) Morgan # Seg Neutrophils % Seg Neuts % (Manual) Lymphocytes % (Manual) Monocytes % (Manual) Nucleated RBC % Seg Neutrophils # Seg Neutrophils # Man Lymphocytes # (Manual) Monocytes # (Manual) Eosinophils # (Manual) Basophils # (Manual) PT INR POC ABG pH 7.168 L 7.335 L ABG pH POC ABG pCO2 72.8 H POC ABG pO2 257 H 117 H ABG pO2 ABG O2 Saturation ABG Base Excess ABG Hemoglobin Oxyhemoglobin Sodium Potassium Chloride Carbon Dioxide BUN Creatinine Glucose POC Glucose 245 H Calcium Phosphorus Magnesium Iron TIBC Ferritin Total Bilirubin AST ALT Alkaline Phosphatase Total Creatine Kinase Troponin T C-Reactive Protein Total Protein Albumin Triglycerides HDL Cholesterol Miscellaneous Test Crossmatch 08/30/17 08/30/17 08/30/17 05:20 05:20 05:20 WBC 40.9 H* RBC 3.64 L Hgb Hct MCV MCH RDW 24.3 H Plt Count Lymph % (Auto) Morgan % (Auto) Morgan # Seg Neutrophils % Seg Neuts % (Manual) 80.0 H Lymphocytes % (Manual) 3.0 L Monocytes % (Manual) Nucleated RBC % 1.0 H Seg Neutrophils # Seg Neutrophils # Man 32.7 H Lymphocytes # (Manual) Monocytes # (Manual) Eosinophils # (Manual) Basophils # (Manual) PT INR POC ABG pH ABG pH POC ABG pCO2 POC ABG pO2 ABG pO2 ABG O2 Saturation ABG Base Excess ABG Hemoglobin Oxyhemoglobin Sodium Potassium Chloride Carbon Dioxide BUN 83 H Creatinine 2.9 H Glucose 334 H POC Glucose 309 H Calcium Phosphorus Magnesium Iron TIBC Ferritin Total Bilirubin AST ALT Alkaline Phosphatase Total Creatine Kinase Troponin T C-Reactive Protein Total Protein Albumin Triglycerides HDL Cholesterol Miscellaneous Test Crossmatch 08/30/17 08/30/17 08/31/17 12:18 17:36 00:17 WBC RBC Hgb Hct MCV MCH RDW Plt Count Lymph % (Auto) Morgan % (Auto) Morgan # Seg Neutrophils % Seg Neuts % (Manual) Lymphocytes % (Manual) Monocytes % (Manual) Nucleated RBC % Seg Neutrophils # Seg Neutrophils # Man Lymphocytes # (Manual) Monocytes # (Manual) Eosinophils # (Manual) Basophils # (Manual) PT INR POC ABG pH ABG pH POC ABG pCO2 POC ABG pO2 ABG pO2 ABG O2 Saturation ABG Base Excess ABG Hemoglobin Oxyhemoglobin Sodium Potassium Chloride Carbon Dioxide BUN Creatinine Glucose POC Glucose 273 H 293 H 360 H Calcium Phosphorus Magnesium Iron TIBC Ferritin Total Bilirubin AST ALT Alkaline Phosphatase Total Creatine Kinase Troponin T C-Reactive Protein Total Protein Albumin Triglycerides HDL Cholesterol Miscellaneous Test Crossmatch 08/31/17 08/31/17 08/31/17 05:30 05:30 05:32 WBC 29.9 H RBC 2.89 L Hgb 8.2 L Hct 24.7 L D MCV MCH RDW 24.4 H Plt Count Lymph % (Auto) Morgan % (Auto) Morgan # Seg Neutrophils % Seg Neuts % (Manual) Lymphocytes % (Manual) 2.0 L Monocytes % (Manual) Nucleated RBC % 2.0 H Seg Neutrophils # Seg Neutrophils # Man 18.5 H Lymphocytes # (Manual) 0.6 L Monocytes # (Manual) 0.9 H Eosinophils # (Manual) Basophils # (Manual) PT INR POC ABG pH ABG pH POC ABG pCO2 POC ABG pO2 ABG pO2 ABG O2 Saturation ABG Base Excess ABG Hemoglobin Oxyhemoglobin Sodium Potassium Chloride Carbon Dioxide BUN 62 H Creatinine 2.2 H Glucose 245 H POC Glucose 257 H Calcium Phosphorus 2.10 L D Magnesium 1.60 L Iron TIBC Ferritin Total Bilirubin AST ALT Alkaline Phosphatase Total Creatine Kinase Troponin T C-Reactive Protein Total Protein Albumin Triglycerides HDL Cholesterol Miscellaneous Test Crossmatch 08/31/17 08/31/17 08/31/17 11:56 12:05 18:14 WBC 32.5 H RBC 3.19 L Hgb 8.8 L Hct 27.9 L MCV MCH RDW 24.9 H Plt Count Lymph % (Auto) Morgan % (Auto) Morgan # Seg Neutrophils % Seg Neuts % (Manual) Lymphocytes % (Manual) 1.0 L Monocytes % (Manual) 12.0 H Nucleated RBC % 1.0 H Seg Neutrophils # Seg Neutrophils # Man 13.3 H Lymphocytes # (Manual) 0.3 L Monocytes # (Manual) 3.9 H Eosinophils # (Manual) Basophils # (Manual) PT INR POC ABG pH ABG pH POC ABG pCO2 POC ABG pO2 ABG pO2 ABG O2 Saturation ABG Base Excess ABG Hemoglobin Oxyhemoglobin Sodium Potassium Chloride Carbon Dioxide BUN Creatinine Glucose POC Glucose 245 H Calcium Phosphorus Magnesium Iron TIBC Ferritin Total Bilirubin AST ALT Alkaline Phosphatase Total Creatine Kinase Troponin T C-Reactive Protein Total Protein Albumin Triglycerides HDL Cholesterol Miscellaneous Test Crossmatch See Detail 08/31/17 08/31/17 08/31/17 18:14 18:15 18:22 WBC RBC Hgb Hct MCV MCH RDW Plt Count Lymph % (Auto) Morgan % (Auto) Morgan # Seg Neutrophils % Seg Neuts % (Manual) Lymphocytes % (Manual) Monocytes % (Manual) Nucleated RBC % Seg Neutrophils # Seg Neutrophils # Man Lymphocytes # (Manual) Monocytes # (Manual) Eosinophils # (Manual) Basophils # (Manual) PT 15.1 H INR POC ABG pH ABG pH POC ABG pCO2 POC ABG pO2 ABG pO2 ABG O2 Saturation ABG Base Excess ABG Hemoglobin Oxyhemoglobin Sodium 136 L Potassium Chloride Carbon Dioxide 21 L BUN 69 H Creatinine 2.3 H Glucose 227 H POC Glucose 240 H Calcium Phosphorus 2.40 L Magnesium 1.50 L Iron TIBC Ferritin Total Bilirubin AST 143 H ALT 114 H Alkaline Phosphatase 267 H Total Creatine Kinase Troponin T C-Reactive Protein Total Protein 4.1 L Albumin 1.8 L Triglycerides HDL Cholesterol Miscellaneous Test Crossmatch 08/31/17 09/01/17 09/01/17 23:53 05:00 05:00 WBC 33.9 H RBC 2.85 L Hgb 7.8 L Hct 24.8 L MCV MCH 27 L RDW 23.9 H Plt Count Lymph % (Auto) Morgan % (Auto) Morgan # Seg Neutrophils % Seg Neuts % (Manual) Lymphocytes % (Manual) 5.0 L Monocytes % (Manual) Nucleated RBC % Seg Neutrophils # Seg Neutrophils # Man 23.1 H Lymphocytes # (Manual) Monocytes # (Manual) Eosinophils # (Manual) Basophils # (Manual) PT INR POC ABG pH ABG pH POC ABG pCO2 POC ABG pO2 ABG pO2 ABG O2 Saturation ABG Base Excess ABG Hemoglobin Oxyhemoglobin Sodium Potassium Chloride Carbon Dioxide BUN 51 H Creatinine 1.8 H Glucose 195 H POC Glucose 301 H Calcium Phosphorus 1.70 L D Magnesium 1.60 L Iron TIBC Ferritin Total Bilirubin AST 80 H ALT 82 H Alkaline Phosphatase 243 H Total Creatine Kinase Troponin T C-Reactive Protein Total Protein 4.2 L Albumin 1.7 L Triglycerides HDL Cholesterol Miscellaneous Test Crossmatch 09/01/17 09/01/17 09/01/17 05:20 05:47 11:37 WBC RBC Hgb Hct MCV MCH RDW Plt Count Lymph % (Auto) Morgan % (Auto) Morgan # Seg Neutrophils % Seg Neuts % (Manual) Lymphocytes % (Manual) Monocytes % (Manual) Nucleated RBC % Seg Neutrophils # Seg Neutrophils # Man Lymphocytes # (Manual) Monocytes # (Manual) Eosinophils # (Manual) Basophils # (Manual) PT INR POC ABG pH ABG pH 7.348 L POC ABG pCO2 POC ABG pO2 ABG pO2 70.2 L ABG O2 Saturation ABG Base Excess ABG Hemoglobin 7.5 L Oxyhemoglobin Sodium Potassium Chloride Carbon Dioxide BUN Creatinine Glucose POC Glucose 230 H 254 H Calcium Phosphorus Magnesium Iron TIBC Ferritin Total Bilirubin AST ALT Alkaline Phosphatase Total Creatine Kinase Troponin T C-Reactive Protein Total Protein Albumin Triglycerides HDL Cholesterol Miscellaneous Test Crossmatch 09/01/17 09/01/17 09/02/17 17:39 23:14 04:55 WBC RBC Hgb Hct MCV MCH RDW Plt Count Lymph % (Auto) Morgan % (Auto) Morgan # Seg Neutrophils % Seg Neuts % (Manual) Lymphocytes % (Manual) Monocytes % (Manual) Nucleated RBC % Seg Neutrophils # Seg Neutrophils # Man Lymphocytes # (Manual) Monocytes # (Manual) Eosinophils # (Manual) Basophils # (Manual) PT INR POC ABG pH ABG pH POC ABG pCO2 POC ABG pO2 ABG pO2 124.8 H ABG O2 Saturation ABG Base Excess -2.9 L ABG Hemoglobin 5.8 L Oxyhemoglobin Sodium Potassium Chloride Carbon Dioxide BUN Creatinine Glucose POC Glucose 297 H 291 H Calcium Phosphorus Magnesium Iron TIBC Ferritin Total Bilirubin AST ALT Alkaline Phosphatase Total Creatine Kinase Troponin T C-Reactive Protein Total Protein Albumin Triglycerides HDL Cholesterol Miscellaneous Test Crossmatch 09/02/17 09/02/17 09/02/17 05:31 06:10 11:58 WBC RBC Hgb Hct MCV MCH RDW Plt Count Lymph % (Auto) Morgan % (Auto) Morgan # Seg Neutrophils % Seg Neuts % (Manual) Lymphocytes % (Manual) Monocytes % (Manual) Nucleated RBC % Seg Neutrophils # Seg Neutrophils # Man Lymphocytes # (Manual) Monocytes # (Manual) Eosinophils # (Manual) Basophils # (Manual) PT INR POC ABG pH ABG pH POC ABG pCO2 POC ABG pO2 ABG pO2 ABG O2 Saturation ABG Base Excess ABG Hemoglobin Oxyhemoglobin Sodium Potassium Chloride Carbon Dioxide BUN 68 H Creatinine 2.2 H Glucose 369 H POC Glucose 245 H 333 H Calcium 8.2 L Phosphorus Magnesium Iron TIBC Ferritin Total Bilirubin AST ALT Alkaline Phosphatase Total Creatine Kinase Troponin T C-Reactive Protein Total Protein Albumin Triglycerides HDL Cholesterol Miscellaneous Test Crossmatch 09/02/17 09/02/17 09/03/17 15:37 23:50 04:00 WBC RBC Hgb Hct MCV MCH RDW Plt Count Lymph % (Auto) Morgan % (Auto) Morgan # Seg Neutrophils % Seg Neuts % (Manual) Lymphocytes % (Manual) Monocytes % (Manual) Nucleated RBC % Seg Neutrophils # Seg Neutrophils # Man Lymphocytes # (Manual) Monocytes # (Manual) Eosinophils # (Manual) Basophils # (Manual) PT INR POC ABG pH ABG pH POC ABG pCO2 POC ABG pO2 ABG pO2 ABG O2 Saturation ABG Base Excess ABG Hemoglobin Oxyhemoglobin Sodium Potassium Chloride Carbon Dioxide BUN 59 H Creatinine 1.9 H Glucose 231 H POC Glucose 314 H 240 H Calcium 8.0 L Phosphorus Magnesium Iron TIBC Ferritin Total Bilirubin AST ALT Alkaline Phosphatase 265 H Total Creatine Kinase Troponin T C-Reactive Protein Total Protein 4.4 L Albumin 1.7 L Triglycerides 180 H HDL Cholesterol Miscellaneous Test Crossmatch 09/03/17 09/03/17 09/03/17 05:00 05:32 11:52 WBC 41.5 H* RBC 2.46 L Hgb 6.9 L Hct 21.3 L MCV MCH RDW 24.9 H Plt Count Lymph % (Auto) Morgan % (Auto) Morgan # Seg Neutrophils % Seg Neuts % (Manual) Lymphocytes % (Manual) 3.0 L Monocytes % (Manual) 9.5 H Nucleated RBC % 1.5 H Seg Neutrophils # Seg Neutrophils # Man 28.8 H Lymphocytes # (Manual) Monocytes # (Manual) 3.9 H Eosinophils # (Manual) Basophils # (Manual) PT INR POC ABG pH ABG pH POC ABG pCO2 POC ABG pO2 ABG pO2 ABG O2 Saturation ABG Base Excess ABG Hemoglobin Oxyhemoglobin Sodium Potassium Chloride Carbon Dioxide BUN Creatinine Glucose POC Glucose 188 H 285 H Calcium Phosphorus Magnesium Iron TIBC Ferritin Total Bilirubin AST ALT Alkaline Phosphatase Total Creatine Kinase Troponin T C-Reactive Protein Total Protein Albumin Triglycerides HDL Cholesterol Miscellaneous Test Crossmatch 09/03/17 09/03/17 09/03/17 16:55 17:44 23:56 WBC RBC Hgb Hct MCV MCH RDW Plt Count Lymph % (Auto) Morgan % (Auto) Morgan # Seg Neutrophils % Seg Neuts % (Manual) Lymphocytes % (Manual) Monocytes % (Manual) Nucleated RBC % Seg Neutrophils # Seg Neutrophils # Man Lymphocytes # (Manual) Monocytes # (Manual) Eosinophils # (Manual) Basophils # (Manual) PT INR POC ABG pH ABG pH POC ABG pCO2 POC ABG pO2 ABG pO2 ABG O2 Saturation ABG Base Excess ABG Hemoglobin Oxyhemoglobin Sodium Potassium Chloride Carbon Dioxide BUN Creatinine Glucose POC Glucose 217 H 193 H Calcium Phosphorus Magnesium Iron TIBC Ferritin Total Bilirubin AST ALT Alkaline Phosphatase Total Creatine Kinase Troponin T C-Reactive Protein Total Protein Albumin Triglycerides HDL Cholesterol Miscellaneous Test Crossmatch See Detail 09/03/17 09/04/17 09/04/17 Unknown 03:47 04:32 WBC 44.7 H* RBC 3.12 L Hgb 8.7 L Hct 26.7 L MCV MCH RDW 23.5 H Plt Count Lymph % (Auto) Morgan % (Auto) Morgan # Seg Neutrophils % Seg Neuts % (Manual) Lymphocytes % (Manual) 4.0 L Monocytes % (Manual) Nucleated RBC % 2.0 H Seg Neutrophils # Seg Neutrophils # Man 30.8 H Lymphocytes # (Manual) Monocytes # (Manual) 2.2 H Eosinophils # (Manual) Basophils # (Manual) PT INR POC ABG pH ABG pH POC ABG pCO2 POC ABG pO2 ABG pO2 133.4 H 135.0 H ABG O2 Saturation ABG Base Excess -2.5 L ABG Hemoglobin 5.8 L 7.9 L Oxyhemoglobin Sodium Potassium Chloride Carbon Dioxide BUN Creatinine Glucose POC Glucose Calcium Phosphorus Magnesium Iron TIBC Ferritin Total Bilirubin AST ALT Alkaline Phosphatase Total Creatine Kinase Troponin T C-Reactive Protein Total Protein Albumin Triglycerides HDL Cholesterol Miscellaneous Test Crossmatch 09/04/17 09/04/17 09/04/17 04:32 05:48 10:43 WBC RBC Hgb Hct MCV MCH RDW Plt Count Lymph % (Auto) Morgan % (Auto) Morgan # Seg Neutrophils % Seg Neuts % (Manual) Lymphocytes % (Manual) Monocytes % (Manual) Nucleated RBC % Seg Neutrophils # Seg Neutrophils # Man Lymphocytes # (Manual) Monocytes # (Manual) Eosinophils # (Manual) Basophils # (Manual) PT INR POC ABG pH ABG pH POC ABG pCO2 POC ABG pO2 ABG pO2 ABG O2 Saturation ABG Base Excess ABG Hemoglobin Oxyhemoglobin Sodium 136 L Potassium 5.2 H D Chloride 94.2 L Carbon Dioxide BUN 71 H Creatinine 2.3 H Glucose 235 H POC Glucose 329 H Calcium 8.3 L Phosphorus Magnesium Iron TIBC Ferritin Total Bilirubin AST ALT Alkaline Phosphatase Total Creatine Kinase Troponin T C-Reactive Protein Total Protein Albumin Triglycerides HDL Cholesterol Miscellaneous Test Flexitest 1 H Crossmatch 09/04/17 09/04/17 09/05/17 12:38 17:30 00:15 WBC RBC Hgb Hct MCV MCH RDW Plt Count Lymph % (Auto) Morgan % (Auto) Morgan # Seg Neutrophils % Seg Neuts % (Manual) Lymphocytes % (Manual) Monocytes % (Manual) Nucleated RBC % Seg Neutrophils # Seg Neutrophils # Man Lymphocytes # (Manual) Monocytes # (Manual) Eosinophils # (Manual) Basophils # (Manual) PT INR POC ABG pH ABG pH POC ABG pCO2 POC ABG pO2 ABG pO2 ABG O2 Saturation ABG Base Excess ABG Hemoglobin Oxyhemoglobin Sodium Potassium Chloride Carbon Dioxide BUN Creatinine Glucose POC Glucose 444 H 331 H 362 H Calcium Phosphorus Magnesium Iron TIBC Ferritin Total Bilirubin AST ALT Alkaline Phosphatase Total Creatine Kinase Troponin T C-Reactive Protein Total Protein Albumin Triglycerides HDL Cholesterol Miscellaneous Test Crossmatch 09/05/17 09/05/17 09/05/17 03:55 03:55 12:12 WBC 35.3 H RBC 2.87 L Hgb 8.1 L Hct 24.6 L MCV MCH RDW 23.3 H Plt Count Lymph % (Auto) Morgan % (Auto) Morgan # Seg Neutrophils % Seg Neuts % (Manual) 89.5 H Lymphocytes % (Manual) 3.0 L Monocytes % (Manual) Nucleated RBC % 2.5 H Seg Neutrophils # Seg Neutrophils # Man 31.6 H Lymphocytes # (Manual) 1.1 L Monocytes # (Manual) Eosinophils # (Manual) Basophils # (Manual) PT INR POC ABG pH ABG pH POC ABG pCO2 POC ABG pO2 ABG pO2 ABG O2 Saturation ABG Base Excess ABG Hemoglobin Oxyhemoglobin Sodium 136 L Potassium Chloride 94.7 L Carbon Dioxide BUN 55 H Creatinine 1.8 H Glucose 193 H POC Glucose 344 H Calcium 8.1 L Phosphorus Magnesium Iron TIBC Ferritin Total Bilirubin AST ALT Alkaline Phosphatase Total Creatine Kinase Troponin T C-Reactive Protein Total Protein Albumin Triglycerides HDL Cholesterol Miscellaneous Test Crossmatch 09/05/17 09/05/17 09/05/17 14:32 15:32 16:41 WBC RBC Hgb Hct MCV MCH RDW Plt Count Lymph % (Auto) Morgan % (Auto) Morgan # Seg Neutrophils % Seg Neuts % (Manual) Lymphocytes % (Manual) Monocytes % (Manual) Nucleated RBC % Seg Neutrophils # Seg Neutrophils # Man Lymphocytes # (Manual) Monocytes # (Manual) Eosinophils # (Manual) Basophils # (Manual) PT INR POC ABG pH ABG pH POC ABG pCO2 POC ABG pO2 ABG pO2 ABG O2 Saturation ABG Base Excess ABG Hemoglobin Oxyhemoglobin Sodium Potassium Chloride Carbon Dioxide BUN Creatinine Glucose POC Glucose 265 H 145 H 188 H Calcium Phosphorus Magnesium Iron TIBC Ferritin Total Bilirubin AST ALT Alkaline Phosphatase Total Creatine Kinase Troponin T C-Reactive Protein Total Protein Albumin Triglycerides HDL Cholesterol Miscellaneous Test Crossmatch 09/05/17 09/05/17 09/05/17 17:28 18:38 20:10 WBC RBC Hgb Hct MCV MCH RDW Plt Count Lymph % (Auto) Morgan % (Auto) Morgan # Seg Neutrophils % Seg Neuts % (Manual) Lymphocytes % (Manual) Monocytes % (Manual) Nucleated RBC % Seg Neutrophils # Seg Neutrophils # Man Lymphocytes # (Manual) Monocytes # (Manual) Eosinophils # (Manual) Basophils # (Manual) PT INR POC ABG pH ABG pH POC ABG pCO2 POC ABG pO2 ABG pO2 ABG O2 Saturation ABG Base Excess ABG Hemoglobin Oxyhemoglobin Sodium Potassium Chloride Carbon Dioxide BUN Creatinine Glucose POC Glucose 246 H 271 H 165 H Calcium Phosphorus Magnesium Iron TIBC Ferritin Total Bilirubin AST ALT Alkaline Phosphatase Total Creatine Kinase Troponin T C-Reactive Protein Total Protein Albumin Triglycerides HDL Cholesterol Miscellaneous Test Crossmatch 09/05/17 09/05/17 09/06/17 21:06 23:07 00:10 WBC RBC Hgb Hct MCV MCH RDW Plt Count Lymph % (Auto) Morgan % (Auto) Morgan # Seg Neutrophils % Seg Neuts % (Manual) Lymphocytes % (Manual) Monocytes % (Manual) Nucleated RBC % Seg Neutrophils # Seg Neutrophils # Man Lymphocytes # (Manual) Monocytes # (Manual) Eosinophils # (Manual) Basophils # (Manual) PT INR POC ABG pH ABG pH POC ABG pCO2 POC ABG pO2 ABG pO2 ABG O2 Saturation ABG Base Excess ABG Hemoglobin Oxyhemoglobin Sodium Potassium Chloride Carbon Dioxide BUN Creatinine Glucose POC Glucose 134 H 135 H 147 H Calcium Phosphorus Magnesium Iron TIBC Ferritin Total Bilirubin AST ALT Alkaline Phosphatase Total Creatine Kinase Troponin T C-Reactive Protein Total Protein Albumin Triglycerides HDL Cholesterol Miscellaneous Test Crossmatch 09/06/17 09/06/17 09/06/17 01:08 02:01 03:08 WBC RBC Hgb Hct MCV MCH RDW Plt Count Lymph % (Auto) Morgan % (Auto) Morgan # Seg Neutrophils % Seg Neuts % (Manual) Lymphocytes % (Manual) Monocytes % (Manual) Nucleated RBC % Seg Neutrophils # Seg Neutrophils # Man Lymphocytes # (Manual) Monocytes # (Manual) Eosinophils # (Manual) Basophils # (Manual) PT INR POC ABG pH ABG pH POC ABG pCO2 POC ABG pO2 ABG pO2 ABG O2 Saturation ABG Base Excess ABG Hemoglobin Oxyhemoglobin Sodium Potassium Chloride Carbon Dioxide BUN Creatinine Glucose POC Glucose 133 H 146 H 135 H Calcium Phosphorus Magnesium Iron TIBC Ferritin Total Bilirubin AST ALT Alkaline Phosphatase Total Creatine Kinase Troponin T C-Reactive Protein Total Protein Albumin Triglycerides HDL Cholesterol Miscellaneous Test Crossmatch 09/06/17 09/06/17 09/06/17 05:30 05:30 05:30 WBC 38.6 H RBC 2.95 L Hgb 8.3 L Hct 25.3 L MCV MCH RDW 22.2 H Plt Count Lymph % (Auto) Morgan % (Auto) Morgan # Seg Neutrophils % Seg Neuts % (Manual) Lymphocytes % (Manual) 2.0 L Monocytes % (Manual) Nucleated RBC % 5.0 H Seg Neutrophils # Seg Neutrophils # Man 25.9 H Lymphocytes # (Manual) 0.8 L Monocytes # (Manual) 1.9 H Eosinophils # (Manual) Basophils # (Manual) PT INR POC ABG pH ABG pH POC ABG pCO2 POC ABG pO2 ABG pO2 ABG O2 Saturation ABG Base Excess ABG Hemoglobin Oxyhemoglobin Sodium 135 L Potassium Chloride 93.5 L Carbon Dioxide BUN 82 H Creatinine 2.3 H Glucose 148 H POC Glucose Calcium Phosphorus Magnesium Iron TIBC Ferritin Total Bilirubin AST ALT Alkaline Phosphatase Total Creatine Kinase Troponin T C-Reactive Protein 2.80 H Total Protein Albumin Triglycerides HDL Cholesterol Miscellaneous Test Crossmatch 09/06/17 09/06/17 09/06/17 05:48 08:04 09:06 WBC RBC Hgb Hct MCV MCH RDW Plt Count Lymph % (Auto) Morgan % (Auto) Morgan # Seg Neutrophils % Seg Neuts % (Manual) Lymphocytes % (Manual) Monocytes % (Manual) Nucleated RBC % Seg Neutrophils # Seg Neutrophils # Man Lymphocytes # (Manual) Monocytes # (Manual) Eosinophils # (Manual) Basophils # (Manual) PT INR POC ABG pH ABG pH POC ABG pCO2 POC ABG pO2 ABG pO2 ABG O2 Saturation ABG Base Excess ABG Hemoglobin Oxyhemoglobin Sodium Potassium Chloride Carbon Dioxide BUN Creatinine Glucose POC Glucose 152 H 164 H 172 H Calcium Phosphorus Magnesium Iron TIBC Ferritin Total Bilirubin AST ALT Alkaline Phosphatase Total Creatine Kinase Troponin T C-Reactive Protein Total Protein Albumin Triglycerides HDL Cholesterol Miscellaneous Test Crossmatch 09/06/17 09/06/17 09/06/17 09:57 10:19 10:57 WBC RBC Hgb Hct MCV MCH RDW Plt Count Lymph % (Auto) Morgan % (Auto) Morgan # Seg Neutrophils % Seg Neuts % (Manual) Lymphocytes % (Manual) Monocytes % (Manual) Nucleated RBC % Seg Neutrophils # Seg Neutrophils # Man Lymphocytes # (Manual) Monocytes # (Manual) Eosinophils # (Manual) Basophils # (Manual) PT INR POC ABG pH ABG pH POC ABG pCO2 POC ABG pO2 ABG pO2 ABG O2 Saturation ABG Base Excess ABG Hemoglobin Oxyhemoglobin Sodium Potassium Chloride Carbon Dioxide BUN Creatinine Glucose POC Glucose 186 H 162 H Calcium Phosphorus Magnesium Iron TIBC Ferritin Total Bilirubin AST ALT Alkaline Phosphatase Total Creatine Kinase Troponin T C-Reactive Protein Total Protein Albumin Triglycerides HDL Cholesterol Miscellaneous Test Flexitest 1 H Crossmatch 09/06/17 09/06/17 09/06/17 13:12 13:40 17:36 WBC RBC Hgb 8.9 L Hct 28.5 L MCV MCH RDW Plt Count Lymph % (Auto) Morgan % (Auto) Morgan # Seg Neutrophils % Seg Neuts % (Manual) Lymphocytes % (Manual) Monocytes % (Manual) Nucleated RBC % Seg Neutrophils # Seg Neutrophils # Man Lymphocytes # (Manual) Monocytes # (Manual) Eosinophils # (Manual) Basophils # (Manual) PT INR POC ABG pH ABG pH POC ABG pCO2 POC ABG pO2 ABG pO2 ABG O2 Saturation ABG Base Excess ABG Hemoglobin Oxyhemoglobin Sodium Potassium Chloride Carbon Dioxide BUN Creatinine Glucose POC Glucose 166 H 161 H Calcium Phosphorus Magnesium Iron TIBC Ferritin Total Bilirubin AST ALT Alkaline Phosphatase Total Creatine Kinase Troponin T C-Reactive Protein Total Protein Albumin Triglycerides HDL Cholesterol Miscellaneous Test Crossmatch 09/07/17 09/07/17 09/07/17 00:13 03:50 03:50 WBC 47.0 H* RBC 2.81 L Hgb 8.1 L Hct 24.1 L MCV MCH RDW 22.5 H Plt Count Lymph % (Auto) Morgan % (Auto) Morgan # Seg Neutrophils % Seg Neuts % (Manual) Lymphocytes % (Manual) 9.0 L Monocytes % (Manual) Nucleated RBC % 6.0 H Seg Neutrophils # Seg Neutrophils # Man 27.3 H Lymphocytes # (Manual) Monocytes # (Manual) 0.9 H Eosinophils # (Manual) 1.9 H Basophils # (Manual) PT INR POC ABG pH ABG pH POC ABG pCO2 POC ABG pO2 ABG pO2 ABG O2 Saturation ABG Base Excess ABG Hemoglobin Oxyhemoglobin Sodium 136 L Potassium Chloride 96.3 L Carbon Dioxide BUN 61 H Creatinine 1.7 H Glucose 132 H POC Glucose 183 H Calcium 7.8 L Phosphorus Magnesium Iron TIBC Ferritin Total Bilirubin AST ALT Alkaline Phosphatase Total Creatine Kinase Troponin T C-Reactive Protein Total Protein Albumin Triglycerides HDL Cholesterol Miscellaneous Test Crossmatch 09/07/17 09/07/17 09/07/17 05:12 05:23 11:48 WBC RBC Hgb Hct MCV MCH RDW Plt Count Lymph % (Auto) Morgan % (Auto) Morgan # Seg Neutrophils % Seg Neuts % (Manual) Lymphocytes % (Manual) Monocytes % (Manual) Nucleated RBC % Seg Neutrophils # Seg Neutrophils # Man Lymphocytes # (Manual) Monocytes # (Manual) Eosinophils # (Manual) Basophils # (Manual) PT INR POC ABG pH ABG pH POC ABG pCO2 POC ABG pO2 ABG pO2 ABG O2 Saturation ABG Base Excess ABG Hemoglobin 7.7 L Oxyhemoglobin 94.8 L Sodium Potassium Chloride Carbon Dioxide BUN Creatinine Glucose POC Glucose 162 H 200 H Calcium Phosphorus Magnesium Iron TIBC Ferritin Total Bilirubin AST ALT Alkaline Phosphatase Total Creatine Kinase Troponin T C-Reactive Protein Total Protein Albumin Triglycerides HDL Cholesterol Miscellaneous Test Crossmatch 09/07/17 09/07/17 09/08/17 17:07 18:21 00:06 WBC RBC Hgb Hct MCV MCH RDW Plt Count Lymph % (Auto) Morgan % (Auto) Morgan # Seg Neutrophils % Seg Neuts % (Manual) Lymphocytes % (Manual) Monocytes % (Manual) Nucleated RBC % Seg Neutrophils # Seg Neutrophils # Man Lymphocytes # (Manual) Monocytes # (Manual) Eosinophils # (Manual) Basophils # (Manual) PT INR POC ABG pH ABG pH POC ABG pCO2 POC ABG pO2 ABG pO2 ABG O2 Saturation ABG Base Excess ABG Hemoglobin Oxyhemoglobin Sodium Potassium Chloride Carbon Dioxide BUN Creatinine Glucose POC Glucose 181 H 168 H Calcium Phosphorus Magnesium Iron TIBC Ferritin Total Bilirubin AST ALT Alkaline Phosphatase Total Creatine Kinase Troponin T C-Reactive Protein Total Protein Albumin Triglycerides HDL Cholesterol Miscellaneous Test Crossmatch See Detail 09/08/17 09/08/17 09/08/17 04:05 04:05 04:41 WBC 49.7 H* RBC 2.58 L Hgb 7.3 L Hct 22.7 L MCV MCH RDW 22.5 H Plt Count Lymph % (Auto) Morgan % (Auto) Morgan # Seg Neutrophils % Seg Neuts % (Manual) 90.5 H Lymphocytes % (Manual) 1.5 L Monocytes % (Manual) Nucleated RBC % Seg Neutrophils # Seg Neutrophils # Man 45.0 H Lymphocytes # (Manual) 0.7 L Monocytes # (Manual) 1.7 H Eosinophils # (Manual) Basophils # (Manual) PT INR POC ABG pH ABG pH POC ABG pCO2 POC ABG pO2 ABG pO2 ABG O2 Saturation ABG Base Excess ABG Hemoglobin Oxyhemoglobin Sodium 132 L Potassium Chloride 92.1 L Carbon Dioxide BUN 82 H Creatinine 2.2 H Glucose 162 H POC Glucose 235 H Calcium 8.3 L Phosphorus 5.20 H D Magnesium Iron TIBC Ferritin Total Bilirubin AST ALT Alkaline Phosphatase 199 H Total Creatine Kinase Troponin T C-Reactive Protein Total Protein 4.5 L Albumin 1.7 L Triglycerides HDL Cholesterol Miscellaneous Test Crossmatch 09/08/17 09/08/17 09/08/17 09:21 11:52 17:38 WBC RBC Hgb Hct MCV MCH RDW Plt Count Lymph % (Auto) Morgan % (Auto) Morgan # Seg Neutrophils % Seg Neuts % (Manual) Lymphocytes % (Manual) Monocytes % (Manual) Nucleated RBC % Seg Neutrophils # Seg Neutrophils # Man Lymphocytes # (Manual) Monocytes # (Manual) Eosinophils # (Manual) Basophils # (Manual) PT INR POC ABG pH ABG pH POC ABG pCO2 POC ABG pO2 ABG pO2 218.5 H ABG O2 Saturation 99.3 H ABG Base Excess -3.5 L ABG Hemoglobin 7.7 L Oxyhemoglobin Sodium Potassium Chloride Carbon Dioxide BUN Creatinine Glucose POC Glucose 220 H 194 H Calcium Phosphorus Magnesium Iron TIBC Ferritin Total Bilirubin AST ALT Alkaline Phosphatase Total Creatine Kinase Troponin T C-Reactive Protein Total Protein Albumin Triglycerides HDL Cholesterol Miscellaneous Test Crossmatch 09/09/17 09/09/17 09/09/17 00:24 03:37 03:37 WBC 33.5 H RBC 2.36 L Hgb 6.7 L Hct 20.9 L MCV MCH RDW 22.7 H Plt Count Lymph % (Auto) Morgan % (Auto) Morgan # Seg Neutrophils % Seg Neuts % (Manual) Lymphocytes % (Manual) Monocytes % (Manual) Nucleated RBC % Seg Neutrophils # Seg Neutrophils # Man Lymphocytes # (Manual) Monocytes # (Manual) Eosinophils # (Manual) Basophils # (Manual) PT INR POC ABG pH ABG pH POC ABG pCO2 POC ABG pO2 ABG pO2 ABG O2 Saturation ABG Base Excess ABG Hemoglobin Oxyhemoglobin Sodium 132 L Potassium Chloride 91.6 L Carbon Dioxide 21 L BUN 101 H Creatinine 2.6 H Glucose 156 H POC Glucose 182 H Calcium 8.3 L Phosphorus 5.90 H Magnesium 2.60 H Iron TIBC Ferritin Total Bilirubin AST ALT Alkaline Phosphatase Total Creatine Kinase Troponin T C-Reactive Protein Total Protein Albumin Triglycerides HDL Cholesterol Miscellaneous Test Crossmatch 09/09/17 09/09/17 09/09/17 05:29 12:03 18:05 WBC RBC Hgb Hct MCV MCH RDW Plt Count Lymph % (Auto) Morgan % (Auto) Morgan # Seg Neutrophils % Seg Neuts % (Manual) Lymphocytes % (Manual) Monocytes % (Manual) Nucleated RBC % Seg Neutrophils # Seg Neutrophils # Man Lymphocytes # (Manual) Monocytes # (Manual) Eosinophils # (Manual) Basophils # (Manual) PT INR POC ABG pH ABG pH POC ABG pCO2 POC ABG pO2 ABG pO2 ABG O2 Saturation ABG Base Excess ABG Hemoglobin Oxyhemoglobin Sodium Potassium Chloride Carbon Dioxide BUN Creatinine Glucose POC Glucose 168 H 143 H 173 H Calcium Phosphorus Magnesium Iron TIBC Ferritin Total Bilirubin AST ALT Alkaline Phosphatase Total Creatine Kinase Troponin T C-Reactive Protein Total Protein Albumin Triglycerides HDL Cholesterol Miscellaneous Test Crossmatch 09/09/17 09/09/17 09/10/17 23:30 Unknown 05:04 WBC RBC Hgb Hct MCV MCH RDW Plt Count Lymph % (Auto) Morgan % (Auto) Morgan # Seg Neutrophils % Seg Neuts % (Manual) Lymphocytes % (Manual) Monocytes % (Manual) Nucleated RBC % Seg Neutrophils # Seg Neutrophils # Man Lymphocytes # (Manual) Monocytes # (Manual) Eosinophils # (Manual) Basophils # (Manual) PT INR POC ABG pH ABG pH 7.323 L POC ABG pCO2 POC ABG pO2 ABG pO2 94.1 H ABG O2 Saturation ABG Base Excess -4.8 L ABG Hemoglobin 8.0 L Oxyhemoglobin 94.9 L Sodium Potassium Chloride Carbon Dioxide BUN Creatinine Glucose POC Glucose 212 H 155 H Calcium Phosphorus Magnesium Iron TIBC Ferritin Total Bilirubin AST ALT Alkaline Phosphatase Total Creatine Kinase Troponin T C-Reactive Protein Total Protein Albumin Triglycerides HDL Cholesterol Miscellaneous Test Crossmatch 09/10/17 09/10/17 09/10/17 07:00 09:55 12:22 WBC 24.7 H RBC 2.62 L Hgb 7.5 L Hct 22.5 L MCV MCH RDW 20.8 H Plt Count Lymph % (Auto) Morgan % (Auto) Morgan # Seg Neutrophils % Seg Neuts % (Manual) Lymphocytes % (Manual) Monocytes % (Manual) Nucleated RBC % Seg Neutrophils # Seg Neutrophils # Man Lymphocytes # (Manual) Monocytes # (Manual) Eosinophils # (Manual) Basophils # (Manual) PT INR POC ABG pH ABG pH POC ABG pCO2 POC ABG pO2 ABG pO2 ABG O2 Saturation ABG Base Excess ABG Hemoglobin Oxyhemoglobin Sodium Potassium Chloride 97.9 L Carbon Dioxide BUN 78 H Creatinine 2.0 H Glucose 126 H POC Glucose 183 H Calcium 8.2 L Phosphorus Magnesium Iron TIBC Ferritin Total Bilirubin AST ALT Alkaline Phosphatase Total Creatine Kinase Troponin T C-Reactive Protein Total Protein Albumin Triglycerides HDL Cholesterol Miscellaneous Test Crossmatch 09/11/17 09/11/17 09/11/17 00:08 03:50 05:28 WBC 21.6 H RBC 2.52 L Hgb 7.4 L Hct 22.2 L MCV MCH RDW 21.5 H Plt Count Lymph % (Auto) Morgan % (Auto) Morgan # Seg Neutrophils % Seg Neuts % (Manual) 92.0 H Lymphocytes % (Manual) 3.0 L Monocytes % (Manual) Nucleated RBC % Seg Neutrophils # Seg Neutrophils # Man 19.9 H Lymphocytes # (Manual) 0.6 L Monocytes # (Manual) Eosinophils # (Manual) Basophils # (Manual) PT INR POC ABG pH ABG pH POC ABG pCO2 POC ABG pO2 ABG pO2 ABG O2 Saturation ABG Base Excess ABG Hemoglobin Oxyhemoglobin Sodium Potassium Chloride Carbon Dioxide BUN Creatinine Glucose POC Glucose 213 H 181 H Calcium Phosphorus Magnesium Iron TIBC Ferritin Total Bilirubin AST ALT Alkaline Phosphatase Total Creatine Kinase Troponin T C-Reactive Protein Total Protein Albumin Triglycerides HDL Cholesterol Miscellaneous Test Crossmatch 09/11/17 09/11/17 09/11/17 11:55 17:56 23:12 WBC RBC Hgb Hct MCV MCH RDW Plt Count Lymph % (Auto) Morgan % (Auto) Morgan # Seg Neutrophils % Seg Neuts % (Manual) Lymphocytes % (Manual) Monocytes % (Manual) Nucleated RBC % Seg Neutrophils # Seg Neutrophils # Man Lymphocytes # (Manual) Monocytes # (Manual) Eosinophils # (Manual) Basophils # (Manual) PT INR POC ABG pH ABG pH POC ABG pCO2 POC ABG pO2 ABG pO2 ABG O2 Saturation ABG Base Excess ABG Hemoglobin Oxyhemoglobin Sodium Potassium Chloride Carbon Dioxide 21 L BUN 80 H Creatinine 2.1 H Glucose 170 H POC Glucose 277 H 206 H Calcium 8.0 L Phosphorus Magnesium Iron TIBC Ferritin Total Bilirubin AST ALT Alkaline Phosphatase Total Creatine Kinase Troponin T C-Reactive Protein Total Protein Albumin Triglycerides HDL Cholesterol Miscellaneous Test Crossmatch 09/11/17 09/12/17 09/12/17 23:36 05:25 05:25 WBC 17.4 H RBC 2.29 L Hgb 6.7 L Hct 20.4 L MCV MCH RDW 21.2 H Plt Count Lymph % (Auto) Morgan % (Auto) Morgan # Seg Neutrophils % Seg Neuts % (Manual) 79.0 H Lymphocytes % (Manual) 5.0 L Monocytes % (Manual) Nucleated RBC % 1.0 H Seg Neutrophils # Seg Neutrophils # Man 13.7 H Lymphocytes # (Manual) 0.9 L Monocytes # (Manual) 1.2 H Eosinophils # (Manual) Basophils # (Manual) PT INR POC ABG pH ABG pH POC ABG pCO2 POC ABG pO2 ABG pO2 ABG O2 Saturation ABG Base Excess ABG Hemoglobin Oxyhemoglobin Sodium Potassium Chloride Carbon Dioxide BUN Creatinine Glucose POC Glucose 190 H Calcium Phosphorus Magnesium Iron 22 L TIBC 81 L Ferritin Total Bilirubin AST ALT Alkaline Phosphatase Total Creatine Kinase Troponin T C-Reactive Protein Total Protein Albumin Triglycerides HDL Cholesterol Miscellaneous Test Crossmatch 09/12/17 09/12/17 09/12/17 05:25 05:36 09:14 WBC RBC Hgb Hct MCV MCH RDW Plt Count Lymph % (Auto) Morgan % (Auto) Morgan # Seg Neutrophils % Seg Neuts % (Manual) Lymphocytes % (Manual) Monocytes % (Manual) Nucleated RBC % Seg Neutrophils # Seg Neutrophils # Man Lymphocytes # (Manual) Monocytes # (Manual) Eosinophils # (Manual) Basophils # (Manual) PT INR POC ABG pH ABG pH POC ABG pCO2 POC ABG pO2 ABG pO2 ABG O2 Saturation ABG Base Excess ABG Hemoglobin Oxyhemoglobin Sodium Potassium Chloride Carbon Dioxide BUN Creatinine Glucose POC Glucose 141 H Calcium Phosphorus Magnesium Iron TIBC Ferritin > 2000.0 H Total Bilirubin AST ALT Alkaline Phosphatase Total Creatine Kinase Troponin T C-Reactive Protein Total Protein Albumin Triglycerides HDL Cholesterol Miscellaneous Test Crossmatch See Detail 09/12/17 09/12/17 09/12/17 11:18 15:22 17:18 WBC RBC Hgb 8.5 L Hct 25.4 L MCV MCH RDW Plt Count Lymph % (Auto) Morgan % (Auto) Morgan # Seg Neutrophils % Seg Neuts % (Manual) Lymphocytes % (Manual) Monocytes % (Manual) Nucleated RBC % Seg Neutrophils # Seg Neutrophils # Man Lymphocytes # (Manual) Monocytes # (Manual) Eosinophils # (Manual) Basophils # (Manual) PT INR POC ABG pH ABG pH POC ABG pCO2 POC ABG pO2 ABG pO2 ABG O2 Saturation ABG Base Excess ABG Hemoglobin Oxyhemoglobin Sodium Potassium Chloride Carbon Dioxide BUN Creatinine Glucose POC Glucose 262 H 193 H Calcium Phosphorus Magnesium Iron TIBC Ferritin Total Bilirubin AST ALT Alkaline Phosphatase Total Creatine Kinase Troponin T C-Reactive Protein Total Protein Albumin Triglycerides HDL Cholesterol Miscellaneous Test Crossmatch 09/13/17 09/13/17 09/13/17 00:05 06:25 11:36 WBC RBC Hgb Hct MCV MCH RDW Plt Count Lymph % (Auto) Morgan % (Auto) Morgan # Seg Neutrophils % Seg Neuts % (Manual) Lymphocytes % (Manual) Monocytes % (Manual) Nucleated RBC % Seg Neutrophils # Seg Neutrophils # Man Lymphocytes # (Manual) Monocytes # (Manual) Eosinophils # (Manual) Basophils # (Manual) PT INR POC ABG pH 7.347 L ABG pH POC ABG pCO2 34.3 L POC ABG pO2 134 H ABG pO2 ABG O2 Saturation ABG Base Excess ABG Hemoglobin Oxyhemoglobin Sodium Potassium Chloride Carbon Dioxide BUN Creatinine Glucose POC Glucose 235 H 286 H Calcium Phosphorus Magnesium Iron TIBC Ferritin Total Bilirubin AST ALT Alkaline Phosphatase Total Creatine Kinase Troponin T C-Reactive Protein Total Protein Albumin Triglycerides HDL Cholesterol Miscellaneous Test Crossmatch 09/13/17 09/13/17 09/13/17 11:56 17:25 23:18 WBC RBC Hgb Hct MCV MCH RDW Plt Count Lymph % (Auto) Morgan % (Auto) Morgan # Seg Neutrophils % Seg Neuts % (Manual) Lymphocytes % (Manual) Monocytes % (Manual) Nucleated RBC % Seg Neutrophils # Seg Neutrophils # Man Lymphocytes # (Manual) Monocytes # (Manual) Eosinophils # (Manual) Basophils # (Manual) PT INR POC ABG pH ABG pH POC ABG pCO2 POC ABG pO2 ABG pO2 ABG O2 Saturation ABG Base Excess ABG Hemoglobin Oxyhemoglobin Sodium Potassium Chloride Carbon Dioxide BUN Creatinine Glucose POC Glucose 318 H 278 H 230 H Calcium Phosphorus Magnesium Iron TIBC Ferritin Total Bilirubin AST ALT Alkaline Phosphatase Total Creatine Kinase Troponin T C-Reactive Protein Total Protein Albumin Triglycerides HDL Cholesterol Miscellaneous Test Crossmatch 09/13/17 09/13/17 09/13/17 Unknown Unknown Unknown WBC 15.6 H RBC 2.72 L Hgb 8.1 L Hct 23.9 L MCV MCH RDW 19.5 H Plt Count 137 L Lymph % (Auto) Morgan % (Auto) Morgan # Seg Neutrophils % Seg Neuts % (Manual) 73.0 H Lymphocytes % (Manual) 3.0 L Monocytes % (Manual) 19.0 H Nucleated RBC % 2.0 H Seg Neutrophils # Seg Neutrophils # Man 11.4 H Lymphocytes # (Manual) 0.5 L Monocytes # (Manual) 3.0 H Eosinophils # (Manual) Basophils # (Manual) PT INR POC ABG pH ABG pH POC ABG pCO2 POC ABG pO2 ABG pO2 ABG O2 Saturation ABG Base Excess ABG Hemoglobin Oxyhemoglobin Sodium Potassium Chloride Carbon Dioxide 19 L BUN 103 H Creatinine 2.6 H Glucose 173 H POC Glucose Calcium Phosphorus Magnesium Iron TIBC Ferritin Total Bilirubin AST ALT Alkaline Phosphatase Total Creatine Kinase Troponin T C-Reactive Protein Total Protein Albumin < 0.2 L Triglycerides HDL Cholesterol Miscellaneous Test Crossmatch 09/14/17 09/14/17 09/14/17 03:15 03:15 05:16 WBC 12.5 H RBC 2.55 L Hgb 7.6 L Hct 22.5 L MCV MCH RDW 19.8 H Plt Count 139 L Lymph % (Auto) Morgan % (Auto) Morgan # Seg Neutrophils % Seg Neuts % (Manual) Lymphocytes % (Manual) Monocytes % (Manual) Nucleated RBC % Seg Neutrophils # Seg Neutrophils # Man Lymphocytes # (Manual) Monocytes # (Manual) Eosinophils # (Manual) Basophils # (Manual) PT INR POC ABG pH ABG pH POC ABG pCO2 POC ABG pO2 ABG pO2 ABG O2 Saturation ABG Base Excess ABG Hemoglobin Oxyhemoglobin Sodium Potassium Chloride Carbon Dioxide BUN 75 H Creatinine 2.1 H Glucose 217 H POC Glucose 283 H Calcium Phosphorus 2.20 L D Magnesium Iron TIBC Ferritin Total Bilirubin AST ALT Alkaline Phosphatase Total Creatine Kinase Troponin T C-Reactive Protein Total Protein Albumin Triglycerides HDL Cholesterol Miscellaneous Test Crossmatch 09/14/17 09/14/17 09/15/17 12:11 17:47 00:03 WBC RBC Hgb Hct MCV MCH RDW Plt Count Lymph % (Auto) Morgan % (Auto) Morgan # Seg Neutrophils % Seg Neuts % (Manual) Lymphocytes % (Manual) Monocytes % (Manual) Nucleated RBC % Seg Neutrophils # Seg Neutrophils # Man Lymphocytes # (Manual) Monocytes # (Manual) Eosinophils # (Manual) Basophils # (Manual) PT INR POC ABG pH ABG pH POC ABG pCO2 POC ABG pO2 ABG pO2 ABG O2 Saturation ABG Base Excess ABG Hemoglobin Oxyhemoglobin Sodium Potassium Chloride Carbon Dioxide BUN Creatinine Glucose POC Glucose 251 H 289 H 229 H Calcium Phosphorus Magnesium Iron TIBC Ferritin Total Bilirubin AST ALT Alkaline Phosphatase Total Creatine Kinase Troponin T C-Reactive Protein Total Protein Albumin Triglycerides HDL Cholesterol Miscellaneous Test Crossmatch 09/15/17 09/15/17 09/15/17 05:00 05:00 05:30 WBC 11.7 H RBC 2.50 L Hgb 7.4 L Hct 22.7 L MCV MCH RDW 20.5 H Plt Count Lymph % (Auto) Morgan % (Auto) Morgan # Seg Neutrophils % Seg Neuts % (Manual) Lymphocytes % (Manual) 11.0 L Monocytes % (Manual) 11.0 H Nucleated RBC % Seg Neutrophils # Seg Neutrophils # Man Lymphocytes # (Manual) Monocytes # (Manual) 1.3 H Eosinophils # (Manual) Basophils # (Manual) PT INR POC ABG pH ABG pH POC ABG pCO2 POC ABG pO2 ABG pO2 ABG O2 Saturation ABG Base Excess ABG Hemoglobin Oxyhemoglobin Sodium Potassium Chloride 97.0 L Carbon Dioxide 21 L BUN 94 H Creatinine 2.4 H Glucose 194 H POC Glucose 225 H Calcium Phosphorus Magnesium Iron TIBC Ferritin Total Bilirubin AST ALT Alkaline Phosphatase Total Creatine Kinase Troponin T C-Reactive Protein Total Protein Albumin Triglycerides HDL Cholesterol Miscellaneous Test Crossmatch 09/15/17 09/15/17 09/15/17 07:48 11:38 12:45 WBC RBC 1.93 L Hgb 5.7 L* Hct 17.1 L* MCV MCH RDW 20.2 H Plt Count 125 L Lymph % (Auto) Morgan % (Auto) Morgan # Seg Neutrophils % Seg Neuts % (Manual) 79.0 H Lymphocytes % (Manual) 8.0 L Monocytes % (Manual) Nucleated RBC % Seg Neutrophils # Seg Neutrophils # Man Lymphocytes # (Manual) 0.8 L Monocytes # (Manual) Eosinophils # (Manual) Basophils # (Manual) PT INR POC ABG pH ABG pH POC ABG pCO2 POC ABG pO2 ABG pO2 ABG O2 Saturation ABG Base Excess ABG Hemoglobin Oxyhemoglobin Sodium Potassium Chloride Carbon Dioxide BUN Creatinine Glucose POC Glucose 245 H 253 H Calcium Phosphorus Magnesium Iron TIBC Ferritin Total Bilirubin AST ALT Alkaline Phosphatase Total Creatine Kinase Troponin T C-Reactive Protein Total Protein Albumin Triglycerides HDL Cholesterol Miscellaneous Test Crossmatch 09/15/17 09/15/17 09/15/17 12:45 12:45 22:25 WBC 19.6 H RBC 3.32 L Hgb 10.0 L D Hct 29.3 L D MCV MCH RDW 17.0 H Plt Count 123 L Lymph % (Auto) Morgan % (Auto) Morgan # Seg Neutrophils % Seg Neuts % (Manual) Lymphocytes % (Manual) 12.0 L Monocytes % (Manual) Nucleated RBC % 5.0 H Seg Neutrophils # Seg Neutrophils # Man 11.0 H Lymphocytes # (Manual) Monocytes # (Manual) 1.2 H Eosinophils # (Manual) Basophils # (Manual) PT 15.4 H INR 1.16 H POC ABG pH ABG pH POC ABG pCO2 POC ABG pO2 ABG pO2 ABG O2 Saturation ABG Base Excess ABG Hemoglobin Oxyhemoglobin Sodium Potassium Chloride Carbon Dioxide BUN Creatinine Glucose POC Glucose Calcium Phosphorus Magnesium Iron TIBC Ferritin Total Bilirubin AST ALT Alkaline Phosphatase Total Creatine Kinase Troponin T C-Reactive Protein Total Protein Albumin Triglycerides HDL Cholesterol Miscellaneous Test Crossmatch See Detail 09/15/17 09/15/17 09/16/17 22:25 23:38 01:26 WBC RBC Hgb Hct MCV MCH RDW Plt Count Lymph % (Auto) Morgan % (Auto) Morgan # Seg Neutrophils % Seg Neuts % (Manual) Lymphocytes % (Manual) Monocytes % (Manual) Nucleated RBC % Seg Neutrophils # Seg Neutrophils # Man Lymphocytes # (Manual) Monocytes # (Manual) Eosinophils # (Manual) Basophils # (Manual) PT INR POC ABG pH ABG pH POC ABG pCO2 POC ABG pO2 ABG pO2 ABG O2 Saturation ABG Base Excess ABG Hemoglobin Oxyhemoglobin Sodium Potassium Chloride Carbon Dioxide 17 L BUN 100 H Creatinine 2.6 H Glucose POC Glucose 58 L 132 H Calcium 8.3 L Phosphorus Magnesium 1.60 L Iron TIBC Ferritin Total Bilirubin 2.80 H AST 118 H ALT Alkaline Phosphatase 316 H Total Creatine Kinase Troponin T C-Reactive Protein Total Protein 4.0 L Albumin 1.8 L Triglycerides HDL Cholesterol Miscellaneous Test Crossmatch 09/16/17 09/16/17 09/16/17 05:30 05:30 05:54 WBC 24.6 H RBC 3.22 L Hgb 9.8 L Hct 28.6 L MCV MCH RDW 17.4 H Plt Count 127 L Lymph % (Auto) Morgan % (Auto) Morgan # Seg Neutrophils % Seg Neuts % (Manual) Lymphocytes % (Manual) Monocytes % (Manual) Nucleated RBC % Seg Neutrophils # Seg Neutrophils # Man Lymphocytes # (Manual) Monocytes # (Manual) Eosinophils # (Manual) Basophils # (Manual) PT INR POC ABG pH ABG pH POC ABG pCO2 POC ABG pO2 ABG pO2 ABG O2 Saturation ABG Base Excess ABG Hemoglobin Oxyhemoglobin Sodium Potassium Chloride Carbon Dioxide 18 L BUN 109 H Creatinine 2.5 H Glucose 140 H POC Glucose 154 H Calcium Phosphorus 4.80 H Magnesium Iron TIBC Ferritin Total Bilirubin 2.40 H AST 90 H ALT Alkaline Phosphatase 298 H Total Creatine Kinase 20 L Troponin T C-Reactive Protein Total Protein 4.1 L Albumin 1.8 L Triglycerides HDL Cholesterol Miscellaneous Test Crossmatch 09/16/17 09/16/17 09/16/17 11:49 17:04 23:18 WBC RBC Hgb Hct MCV MCH RDW Plt Count Lymph % (Auto) Morgan % (Auto) Morgan # Seg Neutrophils % Seg Neuts % (Manual) Lymphocytes % (Manual) Monocytes % (Manual) Nucleated RBC % Seg Neutrophils # Seg Neutrophils # Man Lymphocytes # (Manual) Monocytes # (Manual) Eosinophils # (Manual) Basophils # (Manual) PT INR POC ABG pH ABG pH POC ABG pCO2 POC ABG pO2 ABG pO2 ABG O2 Saturation ABG Base Excess ABG Hemoglobin Oxyhemoglobin Sodium Potassium Chloride Carbon Dioxide BUN Creatinine Glucose POC Glucose 167 H 156 H 162 H Calcium Phosphorus Magnesium Iron TIBC Ferritin Total Bilirubin AST ALT Alkaline Phosphatase Total Creatine Kinase Troponin T C-Reactive Protein Total Protein Albumin Triglycerides HDL Cholesterol Miscellaneous Test Crossmatch 09/17/17 09/17/17 09/17/17 05:27 06:10 06:10 WBC 34.6 H RBC 2.75 L Hgb 8.4 L Hct 24.8 L MCV MCH RDW 18.3 H Plt Count Lymph % (Auto) Morgan % (Auto) Morgan # Seg Neutrophils % Seg Neuts % (Manual) 77.0 H Lymphocytes % (Manual) 5.0 L Monocytes % (Manual) Nucleated RBC % 2.0 H Seg Neutrophils # Seg Neutrophils # Man 26.6 H Lymphocytes # (Manual) Monocytes # (Manual) 2.4 H Eosinophils # (Manual) Basophils # (Manual) PT INR POC ABG pH ABG pH POC ABG pCO2 POC ABG pO2 ABG pO2 ABG O2 Saturation ABG Base Excess ABG Hemoglobin Oxyhemoglobin Sodium Potassium Chloride Carbon Dioxide BUN 82 H Creatinine 2.1 H Glucose 252 H POC Glucose 243 H Calcium 8.3 L Phosphorus Magnesium Iron TIBC Ferritin Total Bilirubin AST ALT Alkaline Phosphatase Total Creatine Kinase Troponin T C-Reactive Protein Total Protein Albumin Triglycerides HDL Cholesterol Miscellaneous Test Crossmatch 09/17/17 09/17/17 09/18/17 11:42 17:12 00:08 WBC RBC Hgb Hct MCV MCH RDW Plt Count Lymph % (Auto) Morgan % (Auto) Morgan # Seg Neutrophils % Seg Neuts % (Manual) Lymphocytes % (Manual) Monocytes % (Manual) Nucleated RBC % Seg Neutrophils # Seg Neutrophils # Man Lymphocytes # (Manual) Monocytes # (Manual) Eosinophils # (Manual) Basophils # (Manual) PT INR POC ABG pH ABG pH POC ABG pCO2 POC ABG pO2 ABG pO2 ABG O2 Saturation ABG Base Excess ABG Hemoglobin Oxyhemoglobin Sodium Potassium Chloride Carbon Dioxide BUN Creatinine Glucose POC Glucose 232 H 309 H 275 H Calcium Phosphorus Magnesium Iron TIBC Ferritin Total Bilirubin AST ALT Alkaline Phosphatase Total Creatine Kinase Troponin T C-Reactive Protein Total Protein Albumin Triglycerides HDL Cholesterol Miscellaneous Test Crossmatch 09/18/17 09/18/17 09/18/17 05:10 05:10 05:23 WBC 24.4 H RBC 2.57 L Hgb 7.8 L Hct 23.2 L MCV MCH RDW 19.5 H Plt Count Lymph % (Auto) Morgan % (Auto) Morgan # Seg Neutrophils % Seg Neuts % (Manual) 78.0 H Lymphocytes % (Manual) 6.0 L Monocytes % (Manual) Nucleated RBC % 2.0 H Seg Neutrophils # Seg Neutrophils # Man 19.0 H Lymphocytes # (Manual) Monocytes # (Manual) Eosinophils # (Manual) Basophils # (Manual) PT INR POC ABG pH ABG pH POC ABG pCO2 POC ABG pO2 ABG pO2 ABG O2 Saturation ABG Base Excess ABG Hemoglobin Oxyhemoglobin Sodium Potassium Chloride Carbon Dioxide BUN 103 H Creatinine 2.8 H Glucose 173 H POC Glucose 224 H Calcium Phosphorus Magnesium Iron TIBC Ferritin Total Bilirubin AST ALT Alkaline Phosphatase Total Creatine Kinase Troponin T C-Reactive Protein Total Protein Albumin Triglycerides HDL Cholesterol Miscellaneous Test Crossmatch 09/18/17 09/18/17 09/18/17 13:59 18:35 23:19 WBC RBC Hgb Hct MCV MCH RDW Plt Count Lymph % (Auto) Morgan % (Auto) Morgan # Seg Neutrophils % Seg Neuts % (Manual) Lymphocytes % (Manual) Monocytes % (Manual) Nucleated RBC % Seg Neutrophils # Seg Neutrophils # Man Lymphocytes # (Manual) Monocytes # (Manual) Eosinophils # (Manual) Basophils # (Manual) PT INR POC ABG pH ABG pH POC ABG pCO2 POC ABG pO2 ABG pO2 ABG O2 Saturation ABG Base Excess ABG Hemoglobin Oxyhemoglobin Sodium Potassium Chloride Carbon Dioxide BUN Creatinine Glucose POC Glucose 268 H 220 H 188 H Calcium Phosphorus Magnesium Iron TIBC Ferritin Total Bilirubin AST ALT Alkaline Phosphatase Total Creatine Kinase Troponin T C-Reactive Protein Total Protein Albumin Triglycerides HDL Cholesterol Miscellaneous Test Crossmatch 09/19/17 09/19/17 09/19/17 05:45 06:00 11:41 WBC 17.6 H RBC 2.57 L Hgb 7.9 L Hct 23.2 L MCV MCH RDW 19.0 H Plt Count Lymph % (Auto) Morgan % (Auto) Morgan # Seg Neutrophils % Seg Neuts % (Manual) Lymphocytes % (Manual) 9.0 L Monocytes % (Manual) Nucleated RBC % Seg Neutrophils # Seg Neutrophils # Man 11.4 H Lymphocytes # (Manual) Monocytes # (Manual) 0.9 H Eosinophils # (Manual) Basophils # (Manual) PT INR POC ABG pH ABG pH POC ABG pCO2 POC ABG pO2 ABG pO2 ABG O2 Saturation ABG Base Excess ABG Hemoglobin Oxyhemoglobin Sodium Potassium Chloride Carbon Dioxide BUN Creatinine Glucose POC Glucose 178 H 126 H Calcium Phosphorus Magnesium Iron TIBC Ferritin Total Bilirubin AST ALT Alkaline Phosphatase Total Creatine Kinase Troponin T C-Reactive Protein Total Protein Albumin Triglycerides HDL Cholesterol Miscellaneous Test Crossmatch 09/19/17 09/19/17 09/20/17 17:08 23:46 04:46 WBC RBC Hgb Hct MCV MCH RDW Plt Count Lymph % (Auto) Morgan % (Auto) Morgan # Seg Neutrophils % Seg Neuts % (Manual) Lymphocytes % (Manual) Monocytes % (Manual) Nucleated RBC % Seg Neutrophils # Seg Neutrophils # Man Lymphocytes # (Manual) Monocytes # (Manual) Eosinophils # (Manual) Basophils # (Manual) PT INR POC ABG pH ABG pH POC ABG pCO2 POC ABG pO2 ABG pO2 ABG O2 Saturation ABG Base Excess ABG Hemoglobin Oxyhemoglobin Sodium Potassium 5.2 H D Chloride 97.4 L Carbon Dioxide 20 L BUN 98 H Creatinine 2.4 H Glucose 187 H POC Glucose 263 H 161 H Calcium Phosphorus Magnesium Iron TIBC Ferritin Total Bilirubin AST ALT Alkaline Phosphatase Total Creatine Kinase Troponin T C-Reactive Protein Total Protein Albumin Triglycerides HDL Cholesterol Miscellaneous Test Crossmatch 09/20/17 05:38 WBC RBC Hgb Hct MCV MCH RDW Plt Count Lymph % (Auto) Morgan % (Auto) Morgan # Seg Neutrophils % Seg Neuts % (Manual) Lymphocytes % (Manual) Monocytes % (Manual) Nucleated RBC % Seg Neutrophils # Seg Neutrophils # Man Lymphocytes # (Manual) Monocytes # (Manual) Eosinophils # (Manual) Basophils # (Manual) PT INR POC ABG pH ABG pH POC ABG pCO2 POC ABG pO2 ABG pO2 ABG O2 Saturation ABG Base Excess ABG Hemoglobin Oxyhemoglobin Sodium Potassium Chloride Carbon Dioxide BUN Creatinine Glucose POC Glucose 215 H Calcium Phosphorus Magnesium Iron TIBC Ferritin Total Bilirubin AST ALT Alkaline Phosphatase Total Creatine Kinase Troponin T C-Reactive Protein Total Protein Albumin Triglycerides HDL Cholesterol Miscellaneous Test Crossmatch
[2017-09-20] MEDS: LEVOPHED 8 MG in NACL 0.9% 250ML 242 ML IV SCH (09:55)
[2017-09-20] MEDS: LEVEMIR SUB-Q SCH (09:56)
[2017-09-20] MEDS: PROTONIX IV SCH (09:56)
[2017-09-20] MEDS: MYCAMINE 100 MG in NACL 0.9% 100 ML IV SCH (10:04)
[2017-09-20] MEDS: HEPARIN 10,000 UNITS/10 ML IV PRN (11:10)
[2017-09-20 11:51] LABS: Hematocrit 26.2 % (30.3-42.9); Hemoglobin 8.2 gm/dl (10.1-14.3); Mean Corpuscular HGB Conc 32 % (30-34); Mean Corpuscular Hemoglobin 29 pg (28-32); Mean Corpuscular Volume 92 fl (79-97); Platelet Count 470 K/mm3 (140-440); Red Blood Count 2.84 M/mm3 (3.65-5.03)
[2017-09-20 11:52] LABS: White Blood Count 24.5 K/mm3 (4.5-11.0)
[2017-09-20] MEDS: HEPARIN IV PRN (14:14)
[2017-09-20] MEDS: MERREM 1,000 MG in NACL 0.9% 100 ML IV SCH (14:30)
--- NOTE | 2017-09-20 17:40 | Progress Note ---
Assessment and Plan 62 y.o. F s/p ex lap, transverse colon resection, colostomy creation, and s/p ex lap, abdominal wash out and abdominal wall closure after wound dehiscence 2 weeks s/p ex lap for gastric perforation and sbo. s/p transverse colon resection with ostomy resection for perforated colon: ostomy patent. Wound care nurse consulted for colostomy care. Nurse will change ostomy appliance. -concerning coleman fluid draining from her inferior portion of incision. Abscess vs succus. CT abd/pelvis with IV and PO contrast ordered. If there is a bowel perf causing a leak she will likely need to go to the operating room tomorrow. If an abscess will contact IR for drainage. Monitor MERVIN output- becoming more serous sanginous. High output but likely abd washing from surgery mixed with ascites causing high output. Continue G tube to gravity. Outputs to be recorded on paper in room for accurate outputs. Pt requiring levo. . s/p [place] placement - ID following - merrem, mycamin, -Rec. wean steriods Heme- rec heme consult has pt may have a coagulate that is not apparent with INR /PT or PTT changes. 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 VDRF: s/p trach. Prev Gastric perf: Sealed. In light of recent surgery, keep G tube to gravity CKD- HD per renal Nutrition: TPN at 77,. DVT proph: scds GI: PPI. - Patient Problems (1) Peritonitis (acute) generalized Current Visit: Yes Status: Acute Subjective Narrative: Pt seen and examined at bedside. No acute events overnight. Pt had HD today 1L removed. Pt winces when her abd. in deeply palpated. Afebrile. Vent. outputs: MERVIN 280cc /24hrs serosang/drk purulent G tube: 70cc bilious NG minimal colostomy - Objective Vital Signs - 12hr 09/20/17 09/20/17 09/20/17 05:45 06:01 06:15 Temperature Pulse Rate 105 H 97 H 101 H Pulse Rate [ From Monitor] Respiratory 22 18 19 Rate Blood Pressure 117/46 120/38 117/49 O2 Sat by Pulse 100 100 Oximetry O2 Sat by Pulse Oximetry [ Anterior Bilateral Throughout] O2 Sat by Pulse Oximetry [ Assessment] 09/20/17 09/20/17 09/20/17 06:30 06:45 07:00 Temperature Pulse Rate 108 H 94 H 102 H Pulse Rate [ From Monitor] Respiratory 19 20 18 Rate Blood Pressure 114/54 109/45 116/49 O2 Sat by Pulse 100 100 Oximetry O2 Sat by Pulse Oximetry [ Anterior Bilateral Throughout] O2 Sat by Pulse Oximetry [ Assessment] 09/20/17 09/20/17 09/20/17 07:15 07:31 07:45 Temperature Pulse Rate 120 H 119 H 97 H Pulse Rate [ From Monitor] Respiratory 23 25 H 19 Rate Blood Pressure 116/49 117/57 99/40 O2 Sat by Pulse 100 100 100 Oximetry O2 Sat by Pulse Oximetry [ Anterior Bilateral Throughout] O2 Sat by Pulse Oximetry [ Assessment] 09/20/17 09/20/17 09/20/17 08:00 08:15 08:30 Temperature 98.1 F Pulse Rate 104 H 106 H 96 H Pulse Rate [ 102 H From Monitor] Respiratory 24 21 16 Rate Blood Pressure 106/53 114/44 97/45 O2 Sat by Pulse 100 100 100 Oximetry O2 Sat by Pulse Oximetry [ Anterior Bilateral Throughout] O2 Sat by Pulse Oximetry [ Assessment] 09/20/17 09/20/17 09/20/17 08:45 08:52 08:59 Temperature Pulse Rate 117 H 93 H 115 H Pulse Rate [ From Monitor] Respiratory 14 20 Rate Blood Pressure 97/45 121/43 121/43 O2 Sat by Pulse 100 100 100 Oximetry O2 Sat by Pulse Oximetry [ Anterior Bilateral Throughout] O2 Sat by Pulse Oximetry [ Assessment] 09/20/17 09/20/17 09/20/17 09:01 09:08 09:15 Temperature Pulse Rate 110 H 112 H Pulse Rate [ From Monitor] Respiratory 21 17 Rate Blood Pressure 134/38 112/43 O2 Sat by Pulse 100 100 Oximetry O2 Sat by Pulse Oximetry [ Anterior Bilateral Throughout] O2 Sat by Pulse 100 Oximetry [ Assessment] 09/20/17 09/20/17 09/20/17 09:31 09:45 10:00 Temperature Pulse Rate 92 H 92 H 103 H Pulse Rate [ From Monitor] Respiratory 17 17 Rate Blood Pressure 114/40 106/40 O2 Sat by Pulse 100 100 Oximetry O2 Sat by Pulse Oximetry [ Anterior Bilateral Throughout] O2 Sat by Pulse Oximetry [ Assessment] 09/20/17 09/20/17 09/20/17 10:01 10:15 10:30 Temperature Pulse Rate 106 H 101 H 99 H Pulse Rate [ From Monitor] Respiratory 17 22 21 Rate Blood Pressure 120/40 106/38 111/48 O2 Sat by Pulse 100 100 100 Oximetry O2 Sat by Pulse Oximetry [ Anterior Bilateral Throughout] O2 Sat by Pulse Oximetry [ Assessment] 09/20/17 09/20/17 09/20/17 10:45 11:00 11:12 Temperature 98.1 F Pulse Rate 93 H 98 H 104 H Pulse Rate [ From Monitor] Respiratory 17 18 18 Rate Blood Pressure 119/44 105/48 105/48 O2 Sat by Pulse 100 100 100 Oximetry O2 Sat by Pulse Oximetry [ Anterior Bilateral Throughout] O2 Sat by Pulse Oximetry [ Assessment] 09/20/17 09/20/17 09/20/17 11:15 11:30 11:31 Temperature Pulse Rate 112 H 108 H 111 H Pulse Rate [ From Monitor] Respiratory 20 22 Rate Blood Pressure 105/48 110/51 110/51 O2 Sat by Pulse 100 Oximetry O2 Sat by Pulse Oximetry [ Anterior Bilateral Throughout] O2 Sat by Pulse Oximetry [ Assessment] 09/20/17 09/20/17 09/20/17 11:45 12:00 12:01 Temperature 98.3 F Pulse Rate 114 H 122 H 110 H Pulse Rate [ 112 H From Monitor] Respiratory 19 19 Rate Blood Pressure 103/46 109/51 109/51 O2 Sat by Pulse 100 83 L Oximetry O2 Sat by Pulse Oximetry [ Anterior Bilateral Throughout] O2 Sat by Pulse Oximetry [ Assessment] 09/20/17 09/20/17 09/20/17 12:15 12:30 12:31 Temperature Pulse Rate 124 H 106 H 108 H Pulse Rate [ From Monitor] Respiratory 22 18 Rate Blood Pressure 97/76 95/65 95/65 O2 Sat by Pulse 93 100 Oximetry O2 Sat by Pulse Oximetry [ Anterior Bilateral Throughout] O2 Sat by Pulse Oximetry [ Assessment] 09/20/17 09/20/17 09/20/17 12:45 13:00 13:01 Temperature Pulse Rate 117 H 108 H 101 H Pulse Rate [ From Monitor] Respiratory 24 19 Rate Blood Pressure 95/65 88/43 101/44 O2 Sat by Pulse 95 98 Oximetry O2 Sat by Pulse Oximetry [ Anterior Bilateral Throughout] O2 Sat by Pulse Oximetry [ Assessment] 09/20/17 09/20/17 09/20/17 13:15 13:30 13:45 Temperature Pulse Rate 109 H 102 H 116 H Pulse Rate [ From Monitor] Respiratory 22 21 28 H Rate Blood Pressure 85/56 88/43 98/50 O2 Sat by Pulse 100 100 95 Oximetry O2 Sat by Pulse Oximetry [ Anterior Bilateral Throughout] O2 Sat by Pulse Oximetry [ Assessment] 09/20/17 09/20/17 09/20/17 14:00 14:15 14:31 Temperature 98.3 F Pulse Rate 104 H 113 H 108 H Pulse Rate [ From Monitor] Respiratory 21 27 H 23 Rate Blood Pressure 111/36 107/53 106/43 O2 Sat by Pulse 98 93 100 Oximetry O2 Sat by Pulse 100 Oximetry [ Anterior Bilateral Throughout] O2 Sat by Pulse Oximetry [ Assessment] 09/20/17 09/20/17 09/20/17 14:45 15:01 15:15 Temperature Pulse Rate 115 H 117 H 117 H Pulse Rate [ From Monitor] Respiratory 26 H 20 17 Rate Blood Pressure 106/43 108/53 108/53 O2 Sat by Pulse 100 100 100 Oximetry O2 Sat by Pulse Oximetry [ Anterior Bilateral Throughout] O2 Sat by Pulse Oximetry [ Assessment] 09/20/17 09/20/17 09/20/17 15:31 15:45 15:53 Temperature 99.0 F Pulse Rate 108 H 97 H Pulse Rate [ From Monitor] Respiratory 19 21 Rate Blood Pressure 94/37 94/37 O2 Sat by Pulse 100 100 Oximetry O2 Sat by Pulse Oximetry [ Anterior Bilateral Throughout] O2 Sat by Pulse Oximetry [ Assessment] 09/20/17 09/20/17 09/20/17 15:54 16:01 16:15 Temperature 99.0 F Pulse Rate 107 H 111 H Pulse Rate [ From Monitor] Respiratory 25 H 17 Rate Blood Pressure 108/56 123/48 O2 Sat by Pulse 100 Oximetry O2 Sat by Pulse Oximetry [ Anterior Bilateral Throughout] O2 Sat by Pulse Oximetry [ Assessment] 09/20/17 09/20/17 09/20/17 16:30 16:45 17:01 Temperature Pulse Rate 115 H 114 H 104 H Pulse Rate [ From Monitor] Respiratory 23 16 18 Rate Blood Pressure 139/96 139/96 105/54 O2 Sat by Pulse Oximetry O2 Sat by Pulse Oximetry [ Anterior Bilateral Throughout] O2 Sat by Pulse Oximetry [ Assessment] 09/20/17 09/20/17 17:15 17:22 Temperature Pulse Rate 101 H 110 H Pulse Rate [ From Monitor] Respiratory 15 24 Rate Blood Pressure 102/56 102/56 O2 Sat by Pulse 100 Oximetry O2 Sat by Pulse Oximetry [ Anterior Bilateral Throughout] O2 Sat by Pulse Oximetry [ Assessment] - General physical appearance no pain, chronically ill, obese - Neck other (trach in place) - Respiratory normal expansion, normal respiratory effort, other (vent) - Abdomen soft, other (obese, midline dressing removed. purulent [place] fluid, non foul smelling draining from inferior portion. Fascia feels intact. wound irrigated with NS. dryied. calcium alginate placed at surface of wound. colostomy small leak of stool into site of wound. irrigated. ostomy: violacious: edematous no retraction. liquid brown stool mixed with drk red. no air. ) - Integumentary no rash - Neurologic disoriented - Psychiatric other (responds to pain ) - Labs 09/20/17 11:41 09/20/17 04:46 Diabetes panel 09/20/17 Range/Units 04:46 Sodium 138 (137-145) mmol/L Potassium 5.2 H D (3.6-5.0) mmol/L Chloride 97.4 L (98-107) mmol/L Carbon Dioxide 20 L (22-30) mmol/L BUN 98 H (7-17) mg/dL Creatinine 2.4 H (0.7-1.2) mg/dL Glucose 187 H (65-100) mg/dL Calcium 8.6 (8.4-10.2) mg/dL Calcium panel 09/20/17 Range/Units 04:46 Calcium 8.6 (8.4-10.2) mg/dL Phosphorus 3.80 (2.5-4.5) mg/dL Pituitary panel 09/20/17 Range/Units 04:46 Sodium 138 (137-145) mmol/L Potassium 5.2 H D (3.6-5.0) mmol/L Chloride 97.4 L (98-107) mmol/L Carbon Dioxide 20 L (22-30) mmol/L BUN 98 H (7-17) mg/dL Creatinine 2.4 H (0.7-1.2) mg/dL Glucose 187 H (65-100) mg/dL Calcium 8.6 (8.4-10.2) mg/dL Adrenal panel 09/20/17 Range/Units 04:46 Sodium 138 (137-145) mmol/L Potassium 5.2 H D (3.6-5.0) mmol/L Chloride 97.4 L (98-107) mmol/L Carbon Dioxide 20 L (22-30) mmol/L BUN 98 H (7-17) mg/dL Creatinine 2.4 H (0.7-1.2) mg/dL Glucose 187 H (65-100) mg/dL Calcium 8.6 (8.4-10.2) mg/dL
--- NOTE | 2017-09-20 18:04 | Progress Note ---
Assessment and Plan Assessment and plan: 62 YO Female with MO, ESRD-PD (with PD cath in place )(Daily), HTN, OA, Ischemic Cardiomyopathy who was on milrinone, Chronic Pain who came to ED with lightheaded and syncope, she c/o abdomnal pain x 2 days, was found to have hypotension, septic shock and intra-abdominal abscess. Sepsis secondary to peritonitis, Intra abdominal abscess and Bowel obstruction - continue abx, -ID on board, Currently on Meropenem and Micafungin She is now status post colostomy. She continues to have large amounts of purulent drainage from her abdominal drains. - she has had the following procedures 09/15/17: Ex lap, transverse colectomy, R colostomy and abdominal wash out 08/31: Ex lap with abdominal wash out and closure 08/17: Ex lap with G tube placement, EGD, abdominal wash out and removal of PD Cath Acute hypoxic respiratory failure on MV > 96 hours continue ventilator, planned for tracheostomy, has failed extubation multiple times planned for LTAC Acute rectal bleeding with severe acute blood loss anemia -EGD showed small gastric ulcer -sp multiple transfusions -- GI consult appreciated - Patient had CTA of abdomen and pelvis no active bleeding, CT Abdomen repeated 09/06, no acute findings - transfuse to keep Hg above 8 given septic shock -, too unstable for C scope at this time -wean steroids GIB likely from bleeding from gastric perforation and surgical wound monitor Hg and transfuse to keep above 8 now improved ESRD -continue HD per renal per femoral HD cath -needs perm cath when improved Septic shock. - continue IV pressors continue abx, ID input appreciated Ulcerative esophagitis/small gastric ulcer on EGD continue PPI Severe Protein calorie malnutrition - Continue with TPN Sacral and lower extremity wound, POA - continue wound care NSVT resolved, likely due to levophed, wean as tolerated cardiology input appreciated --DVT prophylaxis; SCDs - D/C Heparin because of GI bleed Plan of care discussed with the patient's family at bedside Disposition - continue ICU care Prognosis: guarded The high probability of a clinically significant, sudden or life threatening deterioration of the [cv, pulmonary and GI] system(s) required my full and direct attention, intervention and personal management. The aggregate critical care time was [33] minutes. This time is in addition to time spent performing reported procedures but includes the following: [] Data Review and interpretation [] Patient assessment and monitoring of vital signs [] Documentation [] Medication orders and management History Interval history: She has had no more episodes of melena today. having copious amounts of purulent output in Abdominal drains Hospitalist Physical - Physical exam Narrative exam: General.: Obese HEENT: Moist mucous membranes, extraocular muscles intact, no lymphadenopathy Neck: supple Cardiac: S1-S2 heard Lungs: clear to auscultation bilaterally Abdomen: soft, bowel sounds normal, other (obese, soft, dressing not removed) Extremities: no edema clubbing or cyanosis Skin: no rash or lesions Neurologic: trached, obeys commands, arousable - Constitutional Vitals: Temp Pulse Resp BP Pulse Ox 99.0 F 110 H 24 102/56 100 09/20/17 15:54 09/20/17 17:22 09/20/17 17:22 09/20/17 17:22 09/20/17 17:22 General appearance: Present: well-nourished Results - Labs CBC & Chem 7: 09/20/17 11:41 09/20/17 04:46 Labs: Laboratory Last Values WBC 24.5 K/mm3 (4.5-11.0) H 09/20/17 11:41 RBC 2.84 M/mm3 (3.65-5.03) L 09/20/17 11:41 Hgb 8.2 gm/dl (10.1-14.3) L 09/20/17 11:41 Hct 26.2 % (30.3-42.9) L 09/20/17 11:41 MCV 92 fl (79-97) 09/20/17 11:41 MCH 29 pg (28-32) 09/20/17 11:41 MCHC 32 % (30-34) 09/20/17 11:41 RDW 20.0 % (13.2-15.2) H 09/20/17 11:41 Plt Count 470 K/mm3 (140-440) H 09/20/17 11:41 Lymph % (Auto) Lehr Cutter 08/19/17 07:37 [place] % (Auto) Lehr Cutter 09/13/17 Unknown Eos % (Auto) Lehr Cutter 08/19/17 07:37 Baso % (Auto) Lehr Cutter 08/19/17 07:37 Lymph # Lehr Cutter 08/19/17 07:37 [place] # Lehr Cutter 08/19/17 07:37 Eos # Lehr Cutter 08/19/17 07:37 Baso # Lehr Cutter 08/19/17 07:37 Add Manual Diff Complete 09/19/17 06:00 Total Counted 100 09/19/17 06:00 Seg Neutrophils % Lehr Cutter 09/08/17 04:05 Seg Neuts % (Manual) 65.0 % (40.0-70.0) 09/19/17 06:00 Band Neutrophils % 13.0 % 09/19/17 06:00 Lymphocytes % (Manual) 9.0 % (13.4-35.0) L 09/19/17 06:00 Reactive Lymphs % (Man) 1.0 % 09/19/17 06:00 Monocytes % (Manual) 5.0 % (0.0-7.3) 09/19/17 06:00 Eosinophils % (Manual) 0 % (0.0-4.3) 09/19/17 06:00 Basophils % (Manual) 0 % (0.0-1.8) 09/19/17 06:00 Metamyelocytes % 5.0 % 09/19/17 06:00 Myelocytes % 2.0 % 09/19/17 06:00 Promyelocytes % 0 % 09/19/17 06:00 Blast Cells % 0 % 09/19/17 06:00 Nucleated RBC % Not Reportable 09/19/17 06:00 Seg Neutrophils # Lehr Cutter 08/19/17 07:37 Seg Neutrophils # Man 11.4 K/mm3 (1.8-7.7) H 09/19/17 06:00 Band Neutrophils # 2.3 K/mm3 09/19/17 06:00 Lymphocytes # (Manual) 1.6 K/mm3 (1.2-5.4) 09/19/17 06:00 Abs React Lymphs (Man) 0.2 K/mm3 09/19/17 06:00 Monocytes # (Manual) 0.9 K/mm3 (0.0-0.8) H 09/19/17 06:00 Eosinophils # (Manual) 0.0 K/mm3 (0.0-0.4) 09/19/17 06:00 Basophils # (Manual) 0.0 K/mm3 (0.0-0.1) 09/19/17 06:00 Metamyelocytes # 0.9 K/mm3 09/19/17 06:00 Myelocytes # 0.4 K/mm3 09/19/17 06:00 Promyelocytes # 0.0 K/mm3 09/19/17 06:00 Blast Cells # 0.0 K/mm3 09/19/17 06:00 Pathologist Review Not Reportable 08/30/17 05:20 WBC Morphology Not Reportable 09/19/17 06:00 Hypersegmented Neuts Not Reportable 09/19/17 06:00 Hyposegmented Neuts Not Reportable 09/19/17 06:00 Hypogranular Neuts Not Reportable 09/19/17 06:00 Smudge Cells Not Reportable 09/19/17 06:00 Toxic Granulation Not Reportable 09/19/17 06:00 Toxic Vacuolation Not Reportable 09/19/17 06:00 Dohle Bodies Not Reportable 09/19/17 06:00 Pelger-Huet Anomaly Not Reportable 09/19/17 06:00 Ariel Rods Not Reportable 09/19/17 06:00 Platelet Estimate Appears normal 09/19/17 06:00 Clumped Platelets Not Reportable 09/19/17 06:00 Plt Clumps, EDTA Not Reportable 09/19/17 06:00 Large Platelets Rare 09/19/17 06:00 Giant Platelets Few 09/19/17 06:00 Platelet Satelliting Not Reportable 09/19/17 06:00 Plt Morphology Comment Not Reportable 09/19/17 06:00 RBC Morphology Not Reportable 09/19/17 06:00 Dimorphic RBCs Not Reportable 09/19/17 06:00 Polychromasia 1+ 09/19/17 06:00 Hypochromasia Not Reportable 09/19/17 06:00 Poikilocytosis Not Reportable 09/19/17 06:00 Anisocytosis 1+ 09/19/17 06:00 Microcytosis Not Reportable 09/19/17 06:00 Macrocytosis Not Reportable 09/19/17 06:00 Spherocytes Not Reportable 09/19/17 06:00 Pappenheimer Bodies Not Reportable 09/19/17 06:00 Sickle Cells Not Reportable 09/19/17 06:00 Target Cells Rare 09/19/17 06:00 Tear Drop Cells Rare 09/19/17 06:00 Ovalocytes Not Reportable 09/19/17 06:00 Stomatocytes Rare 09/12/17 05:25 Helmet Cells Not Reportable 09/19/17 06:00 Vera-[place] Blossom Bodies Not Reportable 09/19/17 06:00 [place]cock Rings Not Reportable 09/19/17 06:00 Yusuf Cells Not Reportable 09/19/17 06:00 Bite Cells Not Reportable 09/19/17 06:00 Crenated Cell Not Reportable 09/19/17 06:00 Elliptocytes Not Reportable 09/19/17 06:00 Acanthocytes (Spur) Not Reportable 09/19/17 06:00 Rouleaux Not Reportable 09/19/17 06:00 Hemoglobin C Crystals Not Reportable 09/19/17 06:00 Schistocytes Not Reportable 09/19/17 06:00 Malaria parasites Not Reportable 09/19/17 06:00 Jovanni Bodies Not Reportable 09/19/17 06:00 Hem Pathologist Commnt No 09/19/17 06:00 PT 15.4 Sec. (12.2-14.9) H 09/15/17 12:45 INR 1.16 (0.87-1.13) H 09/15/17 12:45 APTT 28.7 Sec. (24.2-36.6) 08/31/17 18:15 POC ABG pH 7.347 (7.35-7.45) L 09/13/17 11:36 ABG pH 7.323 pH Units (7.350-7.450) L 09/09/17 Unknown POC ABG pCO2 34.3 (35-45) L 09/13/17 11:36 ABG pCO2 41.1 mm Hg 09/09/17 Unknown POC ABG pO2 134 (80-105) H 09/13/17 11:36 ABG pO2 94.1 mm Hg (80.0-90.0) H 09/09/17 Unknown POC ABG HCO3 18.8 09/13/17 11:36 ABG HCO3 20.9 mmol/L (20.0-26.0) 09/09/17 Unknown POC ABG Total CO2 20 09/13/17 11:36 POC ABG O2 Sat 99 09/13/17 11:36 ABG O2 Saturation 97.2 % (95.0-99.0) 09/09/17 Unknown ABG O2 Content 10.9 (0.0-44) 09/09/17 Unknown POC ABG Base Excess -7 09/13/17 11:36 ABG Base Excess -4.8 mmol/L (-2.0-3.0) L 09/09/17 Unknown ABG Hemoglobin 8.0 gm/dl (12.0-16.0) L 09/09/17 Unknown ABG Carboxyhemoglobin 2.0 % (0.0-5.0) 09/09/17 Unknown ABG Methemoglobin 0.3 % (0.0-1.5) 09/09/17 Unknown VBG pH 7.462 (7.320-7.420) H 08/08/17 14:52 Oxyhemoglobin 94.9 % (95.0-99.0) L 09/09/17 Unknown FiO2 30 % 09/13/17 11:36 Sodium 138 mmol/L (137-145) 09/20/17 04:46 Potassium 5.2 mmol/L (3.6-5.0) H D 09/20/17 04:46 Chloride 97.4 mmol/L (98-107) L 09/20/17 04:46 Carbon Dioxide 20 mmol/L (22-30) L 09/20/17 04:46 Anion Gap 26 mmol/L 09/20/17 04:46 BUN 98 mg/dL (7-17) H 09/20/17 04:46 Creatinine 2.4 mg/dL (0.7-1.2) H 09/20/17 04:46 Estimated GFR 25 ml/min 09/20/17 04:46 BUN/Creatinine Ratio 41 % 09/20/17 04:46 Glucose 187 mg/dL (65-100) H 09/20/17 04:46 POC Glucose 122 (70-105) H 09/20/17 17:45 Lactic Acid 1.60 mmol/L (0.7-2.0) 08/17/17 11:20 Calcium 8.6 mg/dL (8.4-10.2) 09/20/17 04:46 Phosphorus 3.80 mg/dL (2.5-4.5) 09/20/17 04:46 Magnesium 1.70 mg/dL (1.7-2.3) 09/16/17 05:30 Iron 22 ug/dL (37-170) L 09/12/17 05:25 TIBC 81 mcg/dL (250-450) L 09/12/17 05:25 Ferritin > 2000.0 ng/mL (13.0-400.0) H 09/12/17 05:25 Total Bilirubin 2.40 mg/dL (0.1-1.2) H 09/16/17 05:30 Direct Bilirubin 0.2 mg/dL (0-0.2) 08/08/17 14:11 Indirect Bilirubin 0.3 mg/dL 08/08/17 14:11 AST 90 units/L (5-40) H 09/16/17 05:30 ALT 45 units/L (7-56) 09/16/17 05:30 Alkaline Phosphatase 298 units/L (35-129) H 09/16/17 05:30 Ammonia 25.0 umol/L (25-60) 08/08/17 14:52 Total Creatine Kinase 20 units/L (30-135) L 09/16/17 05:30 Troponin T 0.132 ng/mL (0.00-0.029) H* 08/09/17 13:25 C-Reactive Protein 2.80 mg/dL (0.00-1.30) H 09/06/17 05:30 NT-Pro-B Natriuret Pep 6156 pg/mL (0-900) H 08/08/17 14:11 Total Protein 4.1 g/dL (6.3-8.2) L 09/16/17 05:30 Albumin 1.8 g/dL (3.9-5) L 09/16/17 05:30 Albumin/Globulin Ratio 0.8 % 09/16/17 05:30 Triglycerides 180 mg/dL (2-149) H 09/03/17 04:00 Cholesterol 91 mg/dL (50-199) 08/08/17 21:23 LDL Cholesterol Direct 53 mg/dL (50-130) 08/08/17 21:23 HDL Cholesterol 26 mg/dL (40-59) L 08/08/17 21:23 Cholesterol/HDL Ratio 3.50 % 08/08/17 21:23 Amylase 45 units/L (27-131) 08/16/17 09:50 Lipase 34 units/L (13-60) 08/16/17 09:50 TSH 6.580 mlU/mL (0.270-4.200) H 08/08/17 14:22 Free T4 1.46 ng/dL (0.76-1.46) 08/08/17 14:22 Total Cortisol 28.3 mcg/dL () 09/13/17 12:50 Urine Color Yellow (Yellow) 08/08/17 20:15 Urine Turbidity Turbid (Clear) 08/08/17 20:15 Urine pH 8.0 (5.0-7.0) H 08/08/17 20:15 Ur Specific [place] 1.015 (1.003-1.030) 08/08/17 20:15 Urine Protein 100 mg/dl mg/dL (Negative) 08/08/17 20:15 Urine Glucose (UA) Neg mg/dL (Negative) 08/08/17 20:15 Urine Ketones Neg mg/dL (Negative) 08/08/17 20:15 Urine Blood Mod (Negative) 08/08/17 20:15 Urine Nitrite Neg (Negative) 08/08/17 20:15 Urine Bilirubin Neg (Negative) 08/08/17 20:15 Urine Urobilinogen < 2.0 mg/dL (<2.0) 08/08/17 20:15 Ur Leukocyte Esterase Lg (Negative) 08/08/17 20:15 Urine WBC (Auto) 24.0 /HPF (0.0-6.0) H 08/08/17 20:15 Urine RBC (Auto) 3.0 /HPF (0.0-6.0) 08/08/17 20:15 U Epithel Cells (Auto) 3.0 /HPF (0-13.0) 08/08/17 20:15 Urine Bacteria (Auto) 4+ /HPF (Negative) 08/08/17 20:15 Urine Mucus 3+ /HPF 08/08/17 20:15 Fluid Type Peritoneal 08/08/17 18:18 Fluid Color Straw 08/08/17 18:18 Fluid Appearance Clear 08/08/17 18:18 Fluid pH 7.74 08/08/17 18:18 Fluid WBC 4 /mm3 08/08/17 18:18 Fluid RBC 1 /mm3 08/08/17 18:18 Fluid Seg Neutrophils 12 % 08/08/17 18:18 Fluid Lymphocytes 0 % 08/08/17 18:18 Fluid Reactive Lymphs 0 % 08/08/17 18:18 Fluid Monocytes 1 % 08/08/17 18:18 Fluid Eosinophils 0 % 08/08/17 18:18 Fluid Basophils 0 % 08/08/17 18:18 Fluid Glucose 315 mg/dL (40-70) H 08/08/17 18:18 Random Vancomycin 19.5 ug/mL (0-40.0) 08/22/17 03:40 Hep Bs Antigen Non-reactive (Negative) 08/22/17 03:40 Hepatitis C Antibody Non-reactive (NonReactive) 08/22/17 03:40 Miscellaneous Test Flexitest 1 H 09/06/17 09:57 Blood Type O POSITIVE 09/15/17 12:45 Antibody Screen Negative 09/15/17 12:45 VAN Antibody Screen Negative 09/07/17 17:07 Crossmatch See Detail 09/15/17 12:45
[2017-09-20] MEDS ORDERED: TPN ADULT 1,800 ML IV SCH (20:00)
[2017-09-20] MEDS ORDERED: INTRALIPID 20% 250 ML IV SCH (20:00)
--- NOTE | 2017-09-20 20:05 | Progress Note ---
Assessment and Plan - Patient Problems (1) Leukocytosis Current Visit: Yes Status: Acute Qualifiers: Leukocytosis type: L Plan to address problem: See notes above. make sure that PD access is clean also. see notes. Probably infection from the infected PD catheter. improving. back up again. up/down continue to monitor. it continuos to rise. still high. improved. Back up. Now improving again. (2) Anemia Current Visit: Yes Status: Acute Qualifiers: Anemia type: A Iron deficiency anemia type: I Vitamin B12 deficiency anemia type: V Folate deficiency anemia type: F Bone marrow failure anemia type: B Hemolytic anemia type: H Other causes of anemia: O Chronic kidney disease stage: C Plan to address problem: see notes , monitor labs,. see notes above. continue to monitor labs with you. blood transfusion. S/P replacement transfusion. fair. s/p 1unit transfusion. see notes. Still at 7.4 6.9, scheduled for replacement. Fairly stable at this time. continue to monitor. (3) Acute respiratory failure Current Visit: Yes Status: Acute Qualifiers: Respiratory failure complication: R Plan to address problem: follow pulm. Subjective Date of service: 09/20/17 Principal diagnosis: respiratory failure, sepsis, shock rectal bleeding Interval history: Patient seen today/examined, labs reviewed, case d/w she, and family.complaints of abdominal pain. Patient resting in bed in the ICU, post vascular procedure. labs reviewed, Reactive thrombocytosis, anemia of CD, leukocytosis from infection vs inflamatory process. Patient seen/examined, in bed in the ICU, on the vent post surgery.Labs reviewed , notes reviewed. will continue to monitor labs/patient with you. Replacement transfusion, if /when indicated. patient seen/examined, SBP75, on pressors., lethargic, on the vent, labs reviewed, wbc 39,000 Patient seen/examined, case reviewed, d/w her sister at the bed side. Patient seen/examined, labs reviewed, notes reviewed. severe septic shock from infected PD catheter The high wbc is all infection related. H?H low, and may get replacement transfusion with the next HD. Prognosis remain quite poor. Patient seen/examined, extubated, now on V Mask. labs reviewed. patient seen/examined, resting in bed, still some what lethargic . labs reviewed. Patient seen/examined, resting in bed., some difficulty with breathing./ lethargic. patient seen/examined, resting in bed, looked much better labs reviewed, and fair over all. Patient seen/examined, resting in bed, labs reviewed, case d/w her. Patient seen/examined, resting in bed on BIPAP., labs reviewed. patient seen/examined, resting in bed, on Bipap.labs reviewed, fairly stable. Patient seen today, resting in bed, labs reviewed, H/H low, and transfusion already ordered. Patient seen/examined, resting in bed, transferred back to the unit, due to resp failure. She is now on venting mask. had blood replacement done. Patient seen/examined in the ICU.labs reviewed. patient intubated this am. patient resting in bed.no new issues. Patient seen/examined in the ICU, on vent,Not readily responsive. patient seen, resting in bed, no new cbc ready.will order for today. Patient seen, resting in vent, labs reviewed.notes reviewed also. patient seen/examined, resting on vent, had HD yesterday, and today., labs reviewed. Patient seen, resting in bed, labs reviewed.fairly stable labs, except the wbc. Patient seen/examined, rtesting in bed on the vent.Labs reviewed, wbc still elevated, Hgb dropped slightly. Patient seen/examined, labs reviewed, hgb 7.3, if 7.0 or less, will replace .unless otherwise indicated. Patient seen/examined, alert but lethargic.sedation drip turned down.she is s/p 1unit PRBC replacement with HD today. Patient seen/examined, labs reviewed, hgb still not quite enough at 7.5, perhaps with the next HD,can use 1-2 units. Patient seen/examined, resting in bed, trached, labs re viewed. Patient seen/examined, resting in bed, responds to name calling, SBP99, labs reviewed, Hgb 6.9, PRBC replacement ordered by primary. Patient seen/examined, in bed/trach, NGT., alert/lethargic. Patient seen/examined, resting in bed, still lethargic, labs reviewed, and still fair.Will continue to follow you. Patient seen/examined, resting in bed, labs reviewed. HD in progress.She is now getting daily HD.Labs reviewed, and still fair. Patient seen/examined, resting in bed, less lethargic/less toxic looking. labs have improved. Patient seen/examined, labs reviewed, fair, case d/w her spouse at the bed side. Objective - Constitutional Vitals: Vital Signs - 12hr 09/20/17 09/20/17 09/20/17 08:15 08:30 08:45 Temperature Pulse Rate 106 H 96 H 117 H Pulse Rate [ From Monitor] Respiratory 21 16 14 Rate Blood Pressure 114/44 97/45 97/45 O2 Sat by Pulse 100 100 100 Oximetry O2 Sat by Pulse Oximetry [ Anterior Bilateral Throughout] O2 Sat by Pulse Oximetry [ Assessment] 09/20/17 09/20/17 09/20/17 08:52 08:59 09:01 Temperature Pulse Rate 93 H 115 H 110 H Pulse Rate [ From Monitor] Respiratory 20 21 Rate Blood Pressure 121/43 121/43 134/38 O2 Sat by Pulse 100 100 100 Oximetry O2 Sat by Pulse Oximetry [ Anterior Bilateral Throughout] O2 Sat by Pulse Oximetry [ Assessment] 09/20/17 09/20/17 09/20/17 09:08 09:15 09:31 Temperature Pulse Rate 112 H 92 H Pulse Rate [ From Monitor] Respiratory 17 17 Rate Blood Pressure 112/43 114/40 O2 Sat by Pulse 100 100 Oximetry O2 Sat by Pulse Oximetry [ Anterior Bilateral Throughout] O2 Sat by Pulse 100 Oximetry [ Assessment] 09/20/17 09/20/17 09/20/17 09:45 10:00 10:01 Temperature Pulse Rate 92 H 103 H 106 H Pulse Rate [ From Monitor] Respiratory 17 17 Rate Blood Pressure 106/40 120/40 O2 Sat by Pulse 100 100 Oximetry O2 Sat by Pulse Oximetry [ Anterior Bilateral Throughout] O2 Sat by Pulse Oximetry [ Assessment] 09/20/17 09/20/17 09/20/17 10:15 10:30 10:45 Temperature 98.1 F Pulse Rate 101 H 99 H 93 H Pulse Rate [ From Monitor] Respiratory 22 21 17 Rate Blood Pressure 106/38 111/48 119/44 O2 Sat by Pulse 100 100 100 Oximetry O2 Sat by Pulse Oximetry [ Anterior Bilateral Throughout] O2 Sat by Pulse Oximetry [ Assessment] 09/20/17 09/20/17 09/20/17 11:00 11:12 11:15 Temperature Pulse Rate 98 H 104 H 112 H Pulse Rate [ From Monitor] Respiratory 18 18 20 Rate Blood Pressure 105/48 105/48 105/48 O2 Sat by Pulse 100 100 Oximetry O2 Sat by Pulse Oximetry [ Anterior Bilateral Throughout] O2 Sat by Pulse Oximetry [ Assessment] 09/20/17 09/20/17 09/20/17 11:30 11:31 11:45 Temperature Pulse Rate 108 H 111 H 114 H Pulse Rate [ From Monitor] Respiratory 22 19 Rate Blood Pressure 110/51 110/51 103/46 O2 Sat by Pulse 100 100 Oximetry O2 Sat by Pulse Oximetry [ Anterior Bilateral Throughout] O2 Sat by Pulse Oximetry [ Assessment] 09/20/17 09/20/17 09/20/17 12:00 12:01 12:15 Temperature 98.3 F Pulse Rate 122 H 110 H 124 H Pulse Rate [ 112 H From Monitor] Respiratory 19 22 Rate Blood Pressure 109/51 109/51 97/76 O2 Sat by Pulse 83 L 93 Oximetry O2 Sat by Pulse Oximetry [ Anterior Bilateral Throughout] O2 Sat by Pulse Oximetry [ Assessment] 09/20/17 09/20/17 09/20/17 12:30 12:31 12:45 Temperature Pulse Rate 106 H 108 H 117 H Pulse Rate [ From Monitor] Respiratory 18 24 Rate Blood Pressure 95/65 95/65 95/65 O2 Sat by Pulse 100 95 Oximetry O2 Sat by Pulse Oximetry [ Anterior Bilateral Throughout] O2 Sat by Pulse Oximetry [ Assessment] 09/20/17 09/20/17 09/20/17 13:00 13:01 13:15 Temperature Pulse Rate 108 H 101 H 109 H Pulse Rate [ From Monitor] Respiratory 19 22 Rate Blood Pressure 88/43 101/44 85/56 O2 Sat by Pulse 98 100 Oximetry O2 Sat by Pulse Oximetry [ Anterior Bilateral Throughout] O2 Sat by Pulse Oximetry [ Assessment] 09/20/17 09/20/17 09/20/17 13:30 13:45 14:00 Temperature Pulse Rate 102 H 116 H 104 H Pulse Rate [ From Monitor] Respiratory 21 28 H 21 Rate Blood Pressure 88/43 98/50 111/36 O2 Sat by Pulse 100 95 98 Oximetry O2 Sat by Pulse Oximetry [ Anterior Bilateral Throughout] O2 Sat by Pulse Oximetry [ Assessment] 09/20/17 09/20/17 09/20/17 14:15 14:31 14:45 Temperature 98.3 F Pulse Rate 113 H 108 H 115 H Pulse Rate [ From Monitor] Respiratory 27 H 23 26 H Rate Blood Pressure 107/53 106/43 106/43 O2 Sat by Pulse 93 100 100 Oximetry O2 Sat by Pulse 100 Oximetry [ Anterior Bilateral Throughout] O2 Sat by Pulse Oximetry [ Assessment] 09/20/17 09/20/17 09/20/17 15:01 15:15 15:31 Temperature Pulse Rate 117 H 117 H 108 H Pulse Rate [ From Monitor] Respiratory 20 17 19 Rate Blood Pressure 108/53 108/53 94/37 O2 Sat by Pulse 100 100 100 Oximetry O2 Sat by Pulse Oximetry [ Anterior Bilateral Throughout] O2 Sat by Pulse Oximetry [ Assessment] 09/20/17 09/20/17 09/20/17 15:45 15:53 15:54 Temperature 99.0 F 99.0 F Pulse Rate 97 H Pulse Rate [ From Monitor] Respiratory 21 Rate Blood Pressure 94/37 O2 Sat by Pulse 100 Oximetry O2 Sat by Pulse Oximetry [ Anterior Bilateral Throughout] O2 Sat by Pulse Oximetry [ Assessment] 09/20/17 09/20/17 09/20/17 16:00 16:01 16:15 Temperature Pulse Rate 107 H 111 H Pulse Rate [ 105 H From Monitor] Respiratory 25 H 17 Rate Blood Pressure 108/56 123/48 O2 Sat by Pulse 100 100 Oximetry O2 Sat by Pulse Oximetry [ Anterior Bilateral Throughout] O2 Sat by Pulse Oximetry [ Assessment] 09/20/17 09/20/17 09/20/17 16:30 16:45 17:01 Temperature Pulse Rate 115 H 114 H 104 H Pulse Rate [ From Monitor] Respiratory 23 16 18 Rate Blood Pressure 139/96 139/96 105/54 O2 Sat by Pulse Oximetry O2 Sat by Pulse Oximetry [ Anterior Bilateral Throughout] O2 Sat by Pulse Oximetry [ Assessment] 09/20/17 09/20/17 09/20/17 17:15 17:22 17:31 Temperature Pulse Rate 101 H 110 H 102 H Pulse Rate [ From Monitor] Respiratory 15 24 14 Rate Blood Pressure 102/56 102/56 112/49 O2 Sat by Pulse 100 100 Oximetry O2 Sat by Pulse Oximetry [ Anterior Bilateral Throughout] O2 Sat by Pulse Oximetry [ Assessment] 09/20/17 09/20/17 09/20/17 17:45 18:00 18:15 Temperature Pulse Rate 106 H 107 H 107 H Pulse Rate [ From Monitor] Respiratory 14 13 17 Rate Blood Pressure 112/64 109/81 117/47 O2 Sat by Pulse 100 100 100 Oximetry O2 Sat by Pulse Oximetry [ Anterior Bilateral Throughout] O2 Sat by Pulse Oximetry [ Assessment] 09/20/17 09/20/17 09/20/17 18:30 18:45 19:01 Temperature Pulse Rate 96 H 109 H 101 H Pulse Rate [ From Monitor] Respiratory 23 20 21 Rate Blood Pressure 117/57 117/57 135/56 O2 Sat by Pulse 100 100 100 Oximetry O2 Sat by Pulse Oximetry [ Anterior Bilateral Throughout] O2 Sat by Pulse Oximetry [ Assessment] 09/20/17 09/20/17 19:32 19:40 Temperature 98.6 F Pulse Rate 94 H Pulse Rate [ From Monitor] Respiratory 23 Rate Blood Pressure 135/56 O2 Sat by Pulse 100 Oximetry O2 Sat by Pulse Oximetry [ Anterior Bilateral Throughout] O2 Sat by Pulse Oximetry [ Assessment] General appearance: Present: mild distress - EENT Eyes: PERRL, EOM intact ENT: hearing intact, clear oral mucosa Ears: bilateral: normal - Neck Neck: supple, normal ROM - Respiratory Respiratory: bilateral: diminished - Breasts Breasts: deferred - Cardiovascular Rhythm: regular Heart Sounds: Present: S1 & S2. Absent: gallop, rub Extremities: pulses intact, No edema, normal color, Full ROM - Gastrointestinal General gastrointestinal: Present: soft, non-tender, non-distended, normal bowel sounds Rectal Exam: deferred - Genitourinary Female genitourinary: deferred - Integumentary Integumentary: clear, warm, dry - Musculoskeletal Musculoskeletal: 1, strength equal bilaterally - Neurologic Neurologic: moves all extremities - Psychiatric Psychiatric: appropriate mood/affect - Labs CBC & Chem 7: 09/20/17 11:41 09/20/17 04:46 Labs: Abnormal lab results 09/19/17 09/20/17 09/20/17 Range/Units 23:46 04:46 05:38 WBC (4.5-11.0) K/mm3 RBC (3.65-5.03) M/mm3 Hgb (10.1-14.3) gm/dl Hct (30.3-42.9) % RDW (13.2-15.2) % Plt Count (140-440) K/mm3 Potassium 5.2 H D (3.6-5.0) mmol/L Chloride 97.4 L (98-107) mmol/L Carbon Dioxide 20 L (22-30) mmol/L BUN 98 H (7-17) mg/dL Creatinine 2.4 H (0.7-1.2) mg/dL Glucose 187 H (65-100) mg/dL POC Glucose 161 H 215 H (70-105) 09/20/17 09/20/17 09/20/17 Range/Units 11:36 11:41 17:45 WBC 24.5 H (4.5-11.0) K/mm3 RBC 2.84 L (3.65-5.03) M/mm3 Hgb 8.2 L (10.1-14.3) gm/dl Hct 26.2 L (30.3-42.9) % RDW 20.0 H (13.2-15.2) % Plt Count 470 H (140-440) K/mm3 Potassium (3.6-5.0) mmol/L Chloride (98-107) mmol/L Carbon Dioxide (22-30) mmol/L BUN (7-17) mg/dL Creatinine (0.7-1.2) mg/dL Glucose (65-100) mg/dL POC Glucose 220 H 122 H (70-105)
--- NOTE | 2017-09-20 22:38 | Cat Scan Report ---
FINAL REPORT PROCEDURE: CT ABDOMEN PELVIS WO/W CON TECHNIQUE: Computerized axial tomography of the abdomen and pelvis was performed without contrast followed by computerized axial tomography of the abdomen and pelvis after the IV injection of iodinated nonionic contrast. HISTORY: leukocytosis and abd. drainage. COMPARISON: CT exam dated August 16, 2017 FINDINGS: Mild hypoventilatory changes are seen in the lower lungs. Artifacts are seen in the upper abdomen from patient's arms. Small amount of subpleural subdiaphragmatic fluid is seen in the right upper quadrant and there may be a tiny left pleural effusion. Gallbladder has been removed. Bilateral ureteral stents are seen and appear appropriately positioned. No hydronephrosis is seen. Bladder is decompressed without obvious abnormality. Contrast-enhanced images reveal extensive surgical changes in the anterior abdominal wall. A percutaneous tube is seen coiled in the left upper quadrant of the abdomen. Patient has an indwelling PEG tube that appears appropriately positioned within stomach. A nasogastric tube passes into the stomach, also. Right-sided colostomy is seen. GI contrast is seen within the small and large bowel loops without contrast extravasation. The liver and spleen appear normal. No pancreatic abnormality is seen. Adrenal glands and abdominal aorta are normal in size. Kidneys enhance normally. No excretion is seen from the kidneys on the delayed imaging, performed over 2 minutes following IV contrast administration. Mild free fluid is seen in the pelvis. Uterus appears normal in size. No adnexal masses are seen. No suggestion of bowel obstruction is seen. Mild diffuse anasarca is seen. IMPRESSION: Mild free fluid is seen in the abdomen and pelvis without evidence of abscess. No evidence of enteritis or colitis is seen. No bowel obstruction is seen.
[2017-09-21] MEDS: DILAUDID IV PRN ×2 (00:49→10:37)
[2017-09-21] MEDS: NOVOLOG SUB-Q SCH ×4 (06:11→17:59)
[2017-09-21 06:17] LABS: Calcium 8.3 mg/dL (8.4-10.2); Chloride 96.4 mmol/L (98-107); Magnesium 1.5 mg/dL (1.7-2.3); Phosphorous 2.1 mg/dL (2.5-4.5); Potassium 3.2 mmol/L (3.6-5.0)
[2017-09-21 07:25] LABS: INR 1.11 (0.87-1.13)
--- NOTE | 2017-09-21 07:28 | Progress Note ---
Assessment and Plan 62 y/o female originally admitted with hypotension, now back to ICU secondary to worsening hypotension, concern for sepsis, with acute respiratory failure post-op from ex-lap for abdominal distention and possible ileus, now back from OR after worsening respiratory failure, requiring re-intubation and wash out of abdomen 1. Follow up cultures, currently on broad spectrum abx by ID 2. HD per renal, has been having at least 6x weekly. 3. Continue PSV trials as tolerated. Rest on rate while on HD. Tolerated yesterday being on HD and PSV, will continue as tolerated 4. Leaking at bottom of incision, will need repeat surgery. Steroids stopped. 5. Wean Vasopressors for MAPS greater than 60-65. Unable to use abdomen at this time. Levophed at 2 6. Steroids stopped and will ask pharmacy to place as an allergy. Surgery feels that steroids are causing wound dehiscence, please do not restart. 7. Patient continues to require occasional transfusions. Not a candidate for endoscopy at this time. Transfuse for HgB less than 7. No CBC done this am. Will order prior to surgery this am. Overall prognosis is guarded to poor CCT 31 Subjective Date of service: 09/21/17 Principal diagnosis: respiratory failure, sepsis, shock rectal bleeding Interval history: Spoke to surgery on yesterday. Bottom of incision is leaking. Had CT done on yesterday that does not show abscess. Most likely will go to OR this morning. Responded to voice this am but still will not follow commands. Levophed is down to 2 mcgs. Objective Vital Signs - 12hr 09/20/17 09/20/17 09/20/17 19:31 19:32 19:40 Temperature 98.6 F Pulse Rate 98 H 94 H Respiratory 16 23 Rate Blood Pressure 135/56 135/56 O2 Sat by Pulse 100 100 Oximetry O2 Sat by Pulse Oximetry [ Assessment] 09/20/17 09/20/17 09/20/17 19:45 20:01 20:15 Temperature Pulse Rate 110 H 100 H 107 H Respiratory 15 19 20 Rate Blood Pressure 131/65 121/58 131/65 O2 Sat by Pulse 100 100 Oximetry O2 Sat by Pulse Oximetry [ Assessment] 09/20/17 09/20/17 09/20/17 20:30 20:45 21:01 Temperature Pulse Rate 97 H 94 H 91 H Respiratory 11 L 21 19 Rate Blood Pressure 135/56 111/51 120/50 O2 Sat by Pulse 100 100 100 Oximetry O2 Sat by Pulse Oximetry [ Assessment] 09/20/17 09/20/17 09/20/17 21:15 21:30 22:00 Temperature Pulse Rate 88 96 H 90 Respiratory 21 16 Rate Blood Pressure 113/47 111/59 O2 Sat by Pulse 99 100 Oximetry O2 Sat by Pulse Oximetry [ Assessment] 09/20/17 09/20/17 09/20/17 23:17 23:22 23:30 Temperature Pulse Rate 96 H 103 H 104 H Respiratory 12 Rate Blood Pressure 111/59 100/39 100/39 O2 Sat by Pulse 100 Oximetry O2 Sat by Pulse Oximetry [ Assessment] 09/20/17 09/21/17 09/21/17 23:45 00:00 00:15 Temperature 98.3 F Pulse Rate 118 H 109 H 104 H Respiratory 13 25 H 12 Rate Blood Pressure 111/59 108/48 115/66 O2 Sat by Pulse Oximetry O2 Sat by Pulse Oximetry [ Assessment] 09/21/17 09/21/17 09/21/17 00:30 00:45 01:01 Temperature Pulse Rate 98 H 106 H 95 H Respiratory 20 11 L 23 Rate Blood Pressure 125/57 126/65 133/50 O2 Sat by Pulse Oximetry O2 Sat by Pulse Oximetry [ Assessment] 09/21/17 09/21/17 09/21/17 01:15 01:30 01:45 Temperature Pulse Rate 96 H 91 H 88 Respiratory 18 18 18 Rate Blood Pressure 108/47 120/51 104/46 O2 Sat by Pulse Oximetry O2 Sat by Pulse Oximetry [ Assessment] 09/21/17 09/21/17 09/21/17 02:00 02:15 02:31 Temperature Pulse Rate 90 87 91 H Respiratory 18 18 18 Rate Blood Pressure 110/51 123/54 111/53 O2 Sat by Pulse Oximetry O2 Sat by Pulse Oximetry [ Assessment] 09/21/17 09/21/17 09/21/17 02:45 03:01 03:15 Temperature Pulse Rate 102 H 94 H 100 H Respiratory 20 17 21 Rate Blood Pressure 126/47 116/47 125/57 O2 Sat by Pulse Oximetry O2 Sat by Pulse Oximetry [ Assessment] 09/21/17 09/21/17 09/21/17 03:22 03:23 03:31 Temperature Pulse Rate 109 H 99 H Respiratory 21 Rate Blood Pressure 125/57 137/50 O2 Sat by Pulse 100 Oximetry O2 Sat by Pulse 98 Oximetry [ Assessment] 09/21/17 09/21/17 09/21/17 03:45 03:53 04:01 Temperature 99.1 F Pulse Rate 108 H 103 H Respiratory 19 20 Rate Blood Pressure 134/48 135/51 O2 Sat by Pulse Oximetry O2 Sat by Pulse Oximetry [ Assessment] 09/21/17 09/21/17 09/21/17 04:15 04:31 04:45 Temperature Pulse Rate 106 H 113 H 111 H Respiratory 20 22 18 Rate Blood Pressure 120/64 134/48 144/66 O2 Sat by Pulse 100 Oximetry O2 Sat by Pulse Oximetry [ Assessment] 09/21/17 09/21/17 09/21/17 05:01 05:15 05:31 Temperature Pulse Rate 108 H 97 H 114 H Respiratory 19 28 H 20 Rate Blood Pressure 151/66 151/66 148/66 O2 Sat by Pulse 100 100 100 Oximetry O2 Sat by Pulse Oximetry [ Assessment] Constitutional: no acute distress, other (critically ill on vent, obese) Eyes: non-icteric ENT: oropharynx dry Neck: supple, no lymphadenopathy, no JVD (large neck), other (trach in position , no bleeding) Effort: mildly labored Ascultation: Bilateral: clear ( ), diminished breath sounds (Limited expansion) , wheezes (faint expiratory wheezes), rhonchi (sporadic), other (coarse BS bilaterally) Cardiovascular: regular rate and rhythm Gastrointestinal: absent bowel sounds, tender, other (abdominal incision with dressing , obese. Drain in place, no bleeding) Integumentary: normal Extremities: no cyanosis, pink and warm, edema Neurologic: non-focal exam, pupils equal and round Psychiatric: mood appropriate, affect normal CBC and BMP: 09/20/17 11:41 09/21/17 04:00 ABG, PT/INR, D-dimer: ABG POC ABG pH 7.347 (7.35-7.45) L 09/13/17 11:36 ABG pH 7.323 pH Units (7.350-7.450) L 09/09/17 Unknown POC ABG pCO2 34.3 (35-45) L 09/13/17 11:36 ABG pCO2 41.1 mm Hg 09/09/17 Unknown POC ABG pO2 134 (80-105) H 09/13/17 11:36 ABG pO2 94.1 mm Hg (80.0-90.0) H 09/09/17 Unknown POC ABG HCO3 18.8 09/13/17 11:36 POC ABG Total CO2 20 09/13/17 11:36 POC ABG O2 Sat 99 09/13/17 11:36 ABG O2 Saturation 97.2 % (95.0-99.0) 09/09/17 Unknown PT/INR, D-dimer PT 15.4 Sec. (12.2-14.9) H 09/15/17 12:45 INR 1.16 (0.87-1.13) H 09/15/17 12:45 Abnormal lab findings: Abnormal Labs 08/08/17 08/08/17 08/09/17 21:23 21:31 11:19 WBC 15.7 H RBC 2.93 L Hgb 8.7 L Hct 26.8 L MCV MCH RDW 19.2 H Plt Count Lymph % (Auto) [place]ickman % (Auto) [place] # Seg Neutrophils % Seg Neuts % (Manual) Lymphocytes % (Manual) Monocytes % (Manual) Nucleated RBC % Seg Neutrophils # Seg Neutrophils # Man Lymphocytes # (Manual) Monocytes # (Manual) Eosinophils # (Manual) Basophils # (Manual) PT INR POC ABG pH 7.490 H ABG pH POC ABG pCO2 POC ABG pO2 122 H ABG pO2 ABG O2 Saturation ABG Base Excess ABG Hemoglobin Oxyhemoglobin Sodium Potassium Chloride Carbon Dioxide BUN Creatinine Glucose POC Glucose Calcium Phosphorus Magnesium Iron TIBC Ferritin Total Bilirubin AST ALT Alkaline Phosphatase Total Creatine Kinase Troponin T 0.133 H* C-Reactive Protein Total Protein Albumin Triglycerides HDL Cholesterol 26 L Miscellaneous Test Crossmatch 08/09/17 08/10/17 08/10/17 13:25 04:45 04:45 WBC 15.5 H RBC 2.97 L Hgb 8.9 L Hct 27.0 L MCV MCH RDW 19.2 H Plt Count Lymph % (Auto) [place] % (Auto) [place] # Seg Neutrophils % Seg Neuts % (Manual) 73.0 H Lymphocytes % (Manual) 7.0 L Monocytes % (Manual) 14.0 H Nucleated RBC % Seg Neutrophils # Seg Neutrophils # Man 11.3 H Lymphocytes # (Manual) 1.1 L Monocytes # (Manual) 2.2 H Eosinophils # (Manual) Basophils # (Manual) 0.2 H PT INR POC ABG pH ABG pH POC ABG pCO2 POC ABG pO2 ABG pO2 ABG O2 Saturation ABG Base Excess ABG Hemoglobin Oxyhemoglobin Sodium Potassium 3.3 L Chloride 97.3 L Carbon Dioxide 21 L BUN 23 H Creatinine 6.5 H Glucose POC Glucose Calcium 7.3 L Phosphorus Magnesium Iron TIBC Ferritin Total Bilirubin AST ALT Alkaline Phosphatase 138 H Total Creatine Kinase Troponin T 0.132 H* C-Reactive Protein Total Protein 4.8 L Albumin 1.4 L Triglycerides HDL Cholesterol Miscellaneous Test Crossmatch 08/11/17 08/11/17 08/12/17 04:00 04:00 05:50 WBC 19.3 H RBC 3.10 L Hgb 9.5 L Hct 28.2 L MCV MCH RDW 19.2 H Plt Count 463 H Lymph % (Auto) 7.5 L [place] % (Auto) 14.6 H [place]man # 2.8 H Seg Neutrophils % 77.0 H Seg Neuts % (Manual) Lymphocytes % (Manual) Monocytes % (Manual) Nucleated RBC % Seg Neutrophils # 14.8 H Seg Neutrophils # Man Lymphocytes # (Manual) Monocytes # (Manual) Eosinophils # (Manual) Basophils # (Manual) PT INR POC ABG pH ABG pH POC ABG pCO2 POC ABG pO2 ABG pO2 ABG O2 Saturation ABG Base Excess ABG Hemoglobin Oxyhemoglobin Sodium 136 L 136 L Potassium 3.3 L Chloride 96.3 L 96.6 L Carbon Dioxide BUN 26 H 26 H Creatinine 6.4 H 6.2 H Glucose 135 H 133 H POC Glucose Calcium 8.2 L Phosphorus Magnesium 1.30 L Iron TIBC Ferritin Total Bilirubin AST ALT Alkaline Phosphatase 139 H Total Creatine Kinase Troponin T C-Reactive Protein Total Protein 5.5 L Albumin 1.7 L Triglycerides HDL Cholesterol Miscellaneous Test Crossmatch 08/12/17 08/12/17 08/12/17 05:50 05:50 05:50 WBC 20.1 H RBC 3.06 L Hgb 9.3 L Hct 27.9 L MCV MCH RDW 18.4 H Plt Count 471 H Lymph % (Auto) [place] % (Auto) [place] # Seg Neutrophils % Seg Neuts % (Manual) 85.0 H Lymphocytes % (Manual) 8.0 L Monocytes % (Manual) Nucleated RBC % Seg Neutrophils # Seg Neutrophils # Man 17.1 H Lymphocytes # (Manual) Monocytes # (Manual) 1.0 H Eosinophils # (Manual) Basophils # (Manual) PT 15.2 H INR 1.14 H POC ABG pH ABG pH POC ABG pCO2 POC ABG pO2 ABG pO2 ABG O2 Saturation ABG Base Excess ABG Hemoglobin Oxyhemoglobin Sodium Potassium Chloride Carbon Dioxide BUN Creatinine Glucose POC Glucose Calcium Phosphorus Magnesium Iron TIBC Ferritin Total Bilirubin AST ALT Alkaline Phosphatase Total Creatine Kinase Troponin T C-Reactive Protein 28.90 H Total Protein Albumin Triglycerides HDL Cholesterol Miscellaneous Test Crossmatch 08/12/17 08/13/17 08/13/17 16:23 06:14 06:14 WBC 21.8 H RBC 3.11 L Hgb 9.4 L Hct 28.2 L MCV MCH RDW 18.2 H Plt Count 492 H Lymph % (Auto) [place] % (Auto) [place] # Seg Neutrophils % Seg Neuts % (Manual) 73.0 H Lymphocytes % (Manual) 2.0 L Monocytes % (Manual) 15 H Nucleated RBC % Seg Neutrophils # Seg Neutrophils # Man 15.9 H Lymphocytes # (Manual) 0.4 L Monocytes # (Manual) 2.4 H Eosinophils # (Manual) Basophils # (Manual) PT INR POC ABG pH ABG pH POC ABG pCO2 POC ABG pO2 ABG pO2 ABG O2 Saturation ABG Base Excess ABG Hemoglobin Oxyhemoglobin Sodium Potassium Chloride 96.2 L Carbon Dioxide BUN 28 H Creatinine 5.6 H Glucose 114 H POC Glucose Calcium Phosphorus Magnesium Iron TIBC Ferritin Total Bilirubin AST ALT Alkaline Phosphatase Total Creatine Kinase Troponin T C-Reactive Protein 26.10 H Total Protein Albumin Triglycerides HDL Cholesterol Miscellaneous Test Crossmatch 08/13/17 08/14/17 08/14/17 16:39 04:00 04:00 WBC 22.1 H RBC 3.25 L Hgb 9.9 L Hct 29.5 L MCV MCH RDW 17.9 H Plt Count 525 H Lymph % (Auto) [place] % (Auto) [place] # Seg Neutrophils % Seg Neuts % (Manual) 74.0 H Lymphocytes % (Manual) 8.0 L Monocytes % (Manual) 12.0 H Nucleated RBC % Seg Neutrophils # Seg Neutrophils # Man 16.4 H Lymphocytes # (Manual) Monocytes # (Manual) 2.7 H Eosinophils # (Manual) Basophils # (Manual) PT INR POC ABG pH ABG pH POC ABG pCO2 POC ABG pO2 ABG pO2 ABG O2 Saturation ABG Base Excess ABG Hemoglobin Oxyhemoglobin Sodium 134 L Potassium 3.3 L Chloride 93.3 L Carbon Dioxide BUN 27 H Creatinine 6.0 H Glucose 152 H POC Glucose 151 H Calcium Phosphorus Magnesium Iron TIBC Ferritin Total Bilirubin AST ALT Alkaline Phosphatase Total Creatine Kinase Troponin T C-Reactive Protein Total Protein Albumin Triglycerides HDL Cholesterol Miscellaneous Test Crossmatch 08/15/17 08/16/17 08/16/17 09:10 09:50 09:50 WBC 31.1 H RBC 3.21 L Hgb 9.6 L Hct 29.3 L MCV MCH RDW 18.1 H Plt Count 642 H Lymph % (Auto) [place] % (Auto) [place] # Seg Neutrophils % Seg Neuts % (Manual) 74.0 H Lymphocytes % (Manual) 4.0 L Monocytes % (Manual) 9.0 H Nucleated RBC % Seg Neutrophils # Seg Neutrophils # Man 23.0 H Lymphocytes # (Manual) Monocytes # (Manual) 2.8 H Eosinophils # (Manual) Basophils # (Manual) PT INR POC ABG pH ABG pH POC ABG pCO2 POC ABG pO2 ABG pO2 ABG O2 Saturation ABG Base Excess ABG Hemoglobin Oxyhemoglobin Sodium 136 L 136 L Potassium 3.5 L Chloride 97.6 L 94.9 L Carbon Dioxide BUN 27 H 28 H Creatinine 5.6 H 5.5 H Glucose 117 H 103 H POC Glucose Calcium Phosphorus Magnesium Iron TIBC Ferritin Total Bilirubin AST ALT Alkaline Phosphatase 137 H Total Creatine Kinase Troponin T C-Reactive Protein Total Protein 5.4 L Albumin 1.5 L Triglycerides HDL Cholesterol Miscellaneous Test Crossmatch 08/16/17 08/17/17 08/17/17 09:50 05:00 06:26 WBC RBC Hgb Hct MCV MCH RDW Plt Count Lymph % (Auto) [place] % (Auto) [place] # Seg Neutrophils % Seg Neuts % (Manual) Lymphocytes % (Manual) Monocytes % (Manual) Nucleated RBC % Seg Neutrophils # Seg Neutrophils # Man Lymphocytes # (Manual) Monocytes # (Manual) Eosinophils # (Manual) Basophils # (Manual) PT INR POC ABG pH ABG pH POC ABG pCO2 POC ABG pO2 ABG pO2 ABG O2 Saturation ABG Base Excess ABG Hemoglobin Oxyhemoglobin Sodium 134 L Potassium 3.0 L Chloride 97.8 L Carbon Dioxide BUN 30 H Creatinine 5.3 H Glucose 147 H POC Glucose 165 H Calcium 7.5 L Phosphorus Magnesium Iron TIBC Ferritin Total Bilirubin AST ALT Alkaline Phosphatase Total Creatine Kinase Troponin T C-Reactive Protein 32.30 H Total Protein Albumin Triglycerides HDL Cholesterol Miscellaneous Test Crossmatch 08/17/17 08/17/17 08/17/17 10:56 11:20 11:20 WBC 39.1 H RBC 3.10 L Hgb 9.2 L Hct 28.6 L MCV MCH RDW 18.3 H Plt Count 580 H Lymph % (Auto) [place] % (Auto) [place] # Seg Neutrophils % Seg Neuts % (Manual) 89.5 H Lymphocytes % (Manual) 3.5 L Monocytes % (Manual) Nucleated RBC % Seg Neutrophils # Seg Neutrophils # Man 35.0 H Lymphocytes # (Manual) Monocytes # (Manual) 2.5 H Eosinophils # (Manual) Basophils # (Manual) 0.2 H PT INR POC ABG pH 7.464 H ABG pH POC ABG pCO2 34.1 L POC ABG pO2 75 L ABG pO2 ABG O2 Saturation ABG Base Excess ABG Hemoglobin Oxyhemoglobin Sodium Potassium Chloride Carbon Dioxide BUN Creatinine Glucose POC Glucose Calcium Phosphorus Magnesium Iron TIBC Ferritin Total Bilirubin AST ALT Alkaline Phosphatase Total Creatine Kinase Troponin T C-Reactive Protein Total Protein Albumin Triglycerides HDL Cholesterol Miscellaneous Test Flexitest 1 H Crossmatch 08/17/17 08/17/17 08/17/17 11:20 16:57 20:20 WBC 34.4 H RBC 2.81 L Hgb 8.4 L Hct 26.0 L MCV MCH RDW 17.8 H Plt Count 455 H Lymph % (Auto) [place] % (Auto) [place] # Seg Neutrophils % Seg Neuts % (Manual) Lymphocytes % (Manual) 3.5 L Monocytes % (Manual) Nucleated RBC % 5.0 H Seg Neutrophils # Seg Neutrophils # Man 16.5 H Lymphocytes # (Manual) Monocytes # (Manual) 1.0 H Eosinophils # (Manual) Basophils # (Manual) PT 16.0 H INR 1.29 H POC ABG pH ABG pH POC ABG pCO2 POC ABG pO2 ABG pO2 ABG O2 Saturation ABG Base Excess ABG Hemoglobin Oxyhemoglobin Sodium 135 L Potassium 2.9 L* Chloride Carbon Dioxide 20 L BUN 32 H Creatinine 5.4 H Glucose 129 H POC Glucose Calcium 7.5 L Phosphorus Magnesium 1.50 L Iron TIBC Ferritin Total Bilirubin AST 85 H ALT Alkaline Phosphatase Total Creatine Kinase Troponin T C-Reactive Protein Total Protein 4.0 L D Albumin 1.6 L Triglycerides HDL Cholesterol Miscellaneous Test Crossmatch 08/17/17 08/17/17 08/18/17 20:54 23:47 04:26 WBC RBC Hgb Hct MCV MCH RDW Plt Count Lymph % (Auto) [place] % (Auto) [place] # Seg Neutrophils % Seg Neuts % (Manual) Lymphocytes % (Manual) Monocytes % (Manual) Nucleated RBC % Seg Neutrophils # Seg Neutrophils # Man Lymphocytes # (Manual) Monocytes # (Manual) Eosinophils # (Manual) Basophils # (Manual) PT INR POC ABG pH 7.557 H ABG pH POC ABG pCO2 23.1 L 29.0 L POC ABG pO2 187 H 148 H ABG pO2 ABG O2 Saturation ABG Base Excess ABG Hemoglobin Oxyhemoglobin Sodium Potassium Chloride Carbon Dioxide BUN Creatinine Glucose POC Glucose 188 H Calcium Phosphorus Magnesium Iron TIBC Ferritin Total Bilirubin AST ALT Alkaline Phosphatase Total Creatine Kinase Troponin T C-Reactive Protein Total Protein Albumin Triglycerides HDL Cholesterol Miscellaneous Test Crossmatch 08/18/17 08/18/17 08/18/17 05:51 11:44 17:07 WBC RBC Hgb Hct MCV MCH RDW Plt Count Lymph % (Auto) [place] % (Auto) [place] # Seg Neutrophils % Seg Neuts % (Manual) Lymphocytes % (Manual) Monocytes % (Manual) Nucleated RBC % Seg Neutrophils # Seg Neutrophils # Man Lymphocytes # (Manual) Monocytes # (Manual) Eosinophils # (Manual) Basophils # (Manual) PT INR POC ABG pH ABG pH POC ABG pCO2 POC ABG pO2 ABG pO2 ABG O2 Saturation ABG Base Excess ABG Hemoglobin Oxyhemoglobin Sodium Potassium Chloride Carbon Dioxide BUN Creatinine Glucose POC Glucose 202 H 195 H 182 H Calcium Phosphorus Magnesium Iron TIBC Ferritin Total Bilirubin AST ALT Alkaline Phosphatase Total Creatine Kinase Troponin T C-Reactive Protein Total Protein Albumin Triglycerides HDL Cholesterol Miscellaneous Test Crossmatch 08/18/17 08/18/17 08/18/17 23:45 Unknown Unknown WBC 39.0 H RBC 2.84 L Hgb 8.4 L Hct 26.5 L MCV MCH RDW 18.0 H Plt Count 476 H Lymph % (Auto) [place] % (Auto) [place] # Seg Neutrophils % Seg Neuts % (Manual) Lymphocytes % (Manual) 7.0 L Monocytes % (Manual) 10.0 H Nucleated RBC % 3.0 H Seg Neutrophils # Seg Neutrophils # Man 15.6 H Lymphocytes # (Manual) Monocytes # (Manual) 3.9 H Eosinophils # (Manual) Basophils # (Manual) PT INR POC ABG pH ABG pH POC ABG pCO2 POC ABG pO2 ABG pO2 ABG O2 Saturation ABG Base Excess ABG Hemoglobin Oxyhemoglobin Sodium Potassium Chloride Carbon Dioxide 19 L BUN 34 H Creatinine 5.6 H Glucose 201 H POC Glucose 163 H Calcium 7.8 L Phosphorus 1.90 L D Magnesium 1.60 L Iron TIBC Ferritin Total Bilirubin AST ALT Alkaline Phosphatase Total Creatine Kinase Troponin T C-Reactive Protein Total Protein Albumin Triglycerides HDL Cholesterol Miscellaneous Test Crossmatch 08/19/17 08/19/17 08/19/17 04:18 05:00 05:00 WBC 40.0 H RBC 2.46 L Hgb 7.3 L Hct 22.6 L MCV MCH RDW 18.1 H Plt Count Lymph % (Auto) [place] % (Auto) [place] # Seg Neutrophils % Seg Neuts % (Manual) Lymphocytes % (Manual) 8.0 L Monocytes % (Manual) Nucleated RBC % 2.0 H Seg Neutrophils # Seg Neutrophils # Man 16.4 H Lymphocytes # (Manual) Monocytes # (Manual) 1.2 H Eosinophils # (Manual) 1.2 H Basophils # (Manual) PT INR POC ABG pH 7.463 H ABG pH POC ABG pCO2 29.7 L POC ABG pO2 134 H ABG pO2 ABG O2 Saturation ABG Base Excess ABG Hemoglobin Oxyhemoglobin Sodium Potassium 5.1 H D Chloride Carbon Dioxide 20 L BUN 40 H Creatinine 5.3 H Glucose 128 H POC Glucose Calcium 7.8 L Phosphorus 1.90 L Magnesium Iron TIBC Ferritin Total Bilirubin AST ALT Alkaline Phosphatase Total Creatine Kinase Troponin T C-Reactive Protein Total Protein Albumin Triglycerides HDL Cholesterol Miscellaneous Test Crossmatch 08/19/17 08/19/17 08/19/17 05:19 07:37 09:52 WBC 45.0 H* RBC 2.50 L Hgb 7.5 L Hct 24.5 L MCV 98 H MCH RDW 18.4 H Plt Count Lymph % (Auto) [place] % (Auto) [place] # Seg Neutrophils % Seg Neuts % (Manual) 81.5 H Lymphocytes % (Manual) 4.0 L Monocytes % (Manual) Nucleated RBC % 1.0 H Seg Neutrophils # Seg Neutrophils # Man 36.7 H Lymphocytes # (Manual) Monocytes # (Manual) Eosinophils # (Manual) Basophils # (Manual) PT INR POC ABG pH ABG pH POC ABG pCO2 POC ABG pO2 ABG pO2 ABG O2 Saturation ABG Base Excess ABG Hemoglobin Oxyhemoglobin Sodium Potassium Chloride Carbon Dioxide BUN Creatinine Glucose POC Glucose 142 H Calcium Phosphorus Magnesium Iron TIBC Ferritin Total Bilirubin AST ALT Alkaline Phosphatase Total Creatine Kinase Troponin T C-Reactive Protein 34.20 H Total Protein Albumin Triglycerides HDL Cholesterol Miscellaneous Test Crossmatch 08/19/17 08/19/17 08/20/17 11:16 18:12 00:35 WBC RBC Hgb Hct MCV MCH RDW Plt Count Lymph % (Auto) [place] % (Auto) [place] # Seg Neutrophils % Seg Neuts % (Manual) Lymphocytes % (Manual) Monocytes % (Manual) Nucleated RBC % Seg Neutrophils # Seg Neutrophils # Man Lymphocytes # (Manual) Monocytes # (Manual) Eosinophils # (Manual) Basophils # (Manual) PT INR POC ABG pH ABG pH POC ABG pCO2 POC ABG pO2 ABG pO2 ABG O2 Saturation ABG Base Excess ABG Hemoglobin Oxyhemoglobin Sodium Potassium Chloride Carbon Dioxide BUN Creatinine Glucose POC Glucose 143 H 137 H 164 H Calcium Phosphorus Magnesium Iron TIBC Ferritin Total Bilirubin AST ALT Alkaline Phosphatase Total Creatine Kinase Troponin T C-Reactive Protein Total Protein Albumin Triglycerides HDL Cholesterol Miscellaneous Test Crossmatch 08/20/17 08/20/17 08/20/17 03:20 03:20 04:00 WBC 48.0 H* RBC 2.55 L Hgb 7.6 L Hct 23.4 L MCV MCH RDW 18.4 H Plt Count Lymph % (Auto) [place] % (Auto) [place] # Seg Neutrophils % Seg Neuts % (Manual) 90.0 H Lymphocytes % (Manual) 3.0 L Monocytes % (Manual) Nucleated RBC % Seg Neutrophils # Seg Neutrophils # Man 43.2 H Lymphocytes # (Manual) Monocytes # (Manual) 1.4 H Eosinophils # (Manual) 0.5 H Basophils # (Manual) PT INR POC ABG pH 7.499 H ABG pH POC ABG pCO2 29.1 L POC ABG pO2 ABG pO2 ABG O2 Saturation ABG Base Excess ABG Hemoglobin Oxyhemoglobin Sodium 135 L Potassium Chloride Carbon Dioxide BUN 28 H Creatinine 4.0 H Glucose 140 H POC Glucose Calcium 8.0 L Phosphorus 1.70 L Magnesium 1.60 L Iron TIBC Ferritin Total Bilirubin AST ALT Alkaline Phosphatase Total Creatine Kinase Troponin T C-Reactive Protein Total Protein Albumin Triglycerides HDL Cholesterol Miscellaneous Test Crossmatch 08/20/17 08/20/17 08/20/17 05:02 12:05 13:12 WBC RBC Hgb Hct MCV MCH RDW Plt Count Lymph % (Auto) [place] % (Auto) [place] # Seg Neutrophils % Seg Neuts % (Manual) Lymphocytes % (Manual) Monocytes % (Manual) Nucleated RBC % Seg Neutrophils # Seg Neutrophils # Man Lymphocytes # (Manual) Monocytes # (Manual) Eosinophils # (Manual) Basophils # (Manual) PT INR POC ABG pH 7.537 H ABG pH POC ABG pCO2 27.9 L POC ABG pO2 79 L ABG pO2 ABG O2 Saturation ABG Base Excess ABG Hemoglobin Oxyhemoglobin Sodium Potassium Chloride Carbon Dioxide BUN Creatinine Glucose POC Glucose 158 H 203 H Calcium Phosphorus Magnesium Iron TIBC Ferritin Total Bilirubin AST ALT Alkaline Phosphatase Total Creatine Kinase Troponin T C-Reactive Protein Total Protein Albumin Triglycerides HDL Cholesterol Miscellaneous Test Crossmatch 08/20/17 08/21/17 08/21/17 17:13 00:47 03:14 WBC RBC Hgb Hct MCV MCH RDW Plt Count Lymph % (Auto) [place] % (Auto) [place] # Seg Neutrophils % Seg Neuts % (Manual) Lymphocytes % (Manual) Monocytes % (Manual) Nucleated RBC % Seg Neutrophils # Seg Neutrophils # Man Lymphocytes # (Manual) Monocytes # (Manual) Eosinophils # (Manual) Basophils # (Manual) PT INR POC ABG pH 7.481 H ABG pH POC ABG pCO2 29.6 L POC ABG pO2 ABG pO2 ABG O2 Saturation ABG Base Excess ABG Hemoglobin Oxyhemoglobin Sodium Potassium Chloride Carbon Dioxide BUN Creatinine Glucose POC Glucose 188 H 109 H Calcium Phosphorus Magnesium Iron TIBC Ferritin Total Bilirubin AST ALT Alkaline Phosphatase Total Creatine Kinase Troponin T C-Reactive Protein Total Protein Albumin Triglycerides HDL Cholesterol Miscellaneous Test Crossmatch 08/21/17 08/21/17 08/21/17 05:05 06:50 06:50 WBC 44.7 H* RBC 2.41 L Hgb 7.1 L Hct 22.1 L MCV MCH RDW 18.3 H Plt Count Lymph % (Auto) [place] % (Auto) [place] # Seg Neutrophils % Seg Neuts % (Manual) 89.0 H Lymphocytes % (Manual) 0 L Monocytes % (Manual) Nucleated RBC % 1.0 H Seg Neutrophils # Seg Neutrophils # Man 39.8 H Lymphocytes # (Manual) 0.0 L Monocytes # (Manual) 1.3 H Eosinophils # (Manual) Basophils # (Manual) PT INR POC ABG pH ABG pH POC ABG pCO2 POC ABG pO2 ABG pO2 ABG O2 Saturation ABG Base Excess ABG Hemoglobin Oxyhemoglobin Sodium 135 L Potassium Chloride Carbon Dioxide BUN 39 H Creatinine 4.4 H Glucose 147 H POC Glucose 166 H Calcium 8.1 L Phosphorus Magnesium Iron TIBC Ferritin Total Bilirubin AST ALT < 5 L Alkaline Phosphatase 164 H Total Creatine Kinase Troponin T C-Reactive Protein Total Protein 4.7 L Albumin 1.4 L Triglycerides HDL Cholesterol Miscellaneous Test Crossmatch 08/21/17 08/21/17 08/21/17 08:00 12:21 17:02 WBC RBC Hgb Hct MCV MCH RDW Plt Count Lymph % (Auto) [place] % (Auto) [place] # Seg Neutrophils % Seg Neuts % (Manual) Lymphocytes % (Manual) Monocytes % (Manual) Nucleated RBC % Seg Neutrophils # Seg Neutrophils # Man Lymphocytes # (Manual) Monocytes # (Manual) Eosinophils # (Manual) Basophils # (Manual) PT INR POC ABG pH ABG pH POC ABG pCO2 POC ABG pO2 ABG pO2 ABG O2 Saturation ABG Base Excess ABG Hemoglobin Oxyhemoglobin Sodium Potassium Chloride Carbon Dioxide BUN Creatinine Glucose POC Glucose 147 H 135 H Calcium Phosphorus Magnesium Iron TIBC Ferritin Total Bilirubin AST ALT Alkaline Phosphatase Total Creatine Kinase Troponin T C-Reactive Protein Total Protein Albumin Triglycerides HDL Cholesterol Miscellaneous Test Crossmatch See Detail 08/21/17 08/22/17 08/22/17 23:38 03:40 03:40 WBC 42.5 H* RBC 2.88 L Hgb 8.5 L Hct 26.3 L MCV MCH RDW 17.9 H Plt Count Lymph % (Auto) [place] % (Auto) [place] # Seg Neutrophils % Seg Neuts % (Manual) Lymphocytes % (Manual) 5.0 L Monocytes % (Manual) Nucleated RBC % Seg Neutrophils # Seg Neutrophils # Man 19.6 H Lymphocytes # (Manual) Monocytes # (Manual) 2.6 H Eosinophils # (Manual) Basophils # (Manual) PT INR POC ABG pH ABG pH POC ABG pCO2 POC ABG pO2 ABG pO2 ABG O2 Saturation ABG Base Excess ABG Hemoglobin Oxyhemoglobin Sodium Potassium 3.3 L D Chloride Carbon Dioxide BUN 27 H Creatinine 2.9 H Glucose 144 H POC Glucose 251 H Calcium 8.0 L Phosphorus 2.40 L Magnesium Iron TIBC Ferritin Total Bilirubin AST ALT Alkaline Phosphatase Total Creatine Kinase Troponin T C-Reactive Protein Total Protein Albumin Triglycerides HDL Cholesterol Miscellaneous Test Crossmatch 08/22/17 08/22/17 08/22/17 06:37 08:50 11:25 WBC RBC Hgb Hct MCV MCH RDW Plt Count Lymph % (Auto) [place] % (Auto) [place] # Seg Neutrophils % Seg Neuts % (Manual) Lymphocytes % (Manual) Monocytes % (Manual) Nucleated RBC % Seg Neutrophils # Seg Neutrophils # Man Lymphocytes # (Manual) Monocytes # (Manual) Eosinophils # (Manual) Basophils # (Manual) PT INR POC ABG pH ABG pH POC ABG pCO2 POC ABG pO2 ABG pO2 ABG O2 Saturation ABG Base Excess ABG Hemoglobin Oxyhemoglobin Sodium Potassium Chloride Carbon Dioxide BUN Creatinine Glucose POC Glucose 152 H 175 H Calcium Phosphorus Magnesium Iron TIBC Ferritin Total Bilirubin AST ALT Alkaline Phosphatase Total Creatine Kinase Troponin T C-Reactive Protein Total Protein Albumin Triglycerides HDL Cholesterol Miscellaneous Test Flexitest 1 H Crossmatch 08/22/17 08/22/17 08/22/17 16:25 17:56 23:03 WBC RBC Hgb Hct MCV MCH RDW Plt Count Lymph % (Auto) [place] % (Auto) [place] # Seg Neutrophils % Seg Neuts % (Manual) Lymphocytes % (Manual) Monocytes % (Manual) Nucleated RBC % Seg Neutrophils # Seg Neutrophils # Man Lymphocytes # (Manual) Monocytes # (Manual) Eosinophils # (Manual) Basophils # (Manual) PT INR POC ABG pH ABG pH POC ABG pCO2 POC ABG pO2 ABG pO2 ABG O2 Saturation ABG Base Excess ABG Hemoglobin Oxyhemoglobin Sodium Potassium Chloride Carbon Dioxide BUN Creatinine Glucose POC Glucose 232 H 192 H Calcium Phosphorus Magnesium Iron TIBC Ferritin Total Bilirubin AST ALT Alkaline Phosphatase Total Creatine Kinase Troponin T C-Reactive Protein 30.70 H Total Protein Albumin Triglycerides HDL Cholesterol Miscellaneous Test Crossmatch 08/23/17 08/23/17 08/23/17 05:36 08:50 12:14 WBC RBC Hgb Hct MCV MCH RDW Plt Count Lymph % (Auto) [place] % (Auto) [place] # Seg Neutrophils % Seg Neuts % (Manual) Lymphocytes % (Manual) Monocytes % (Manual) Nucleated RBC % Seg Neutrophils # Seg Neutrophils # Man Lymphocytes # (Manual) Monocytes # (Manual) Eosinophils # (Manual) Basophils # (Manual) PT INR POC ABG pH ABG pH POC ABG pCO2 POC ABG pO2 ABG pO2 ABG O2 Saturation ABG Base Excess ABG Hemoglobin Oxyhemoglobin Sodium Potassium Chloride 107.1 H Carbon Dioxide BUN 49 H Creatinine 3.3 H Glucose 172 H POC Glucose 206 H 238 H Calcium Phosphorus Magnesium 2.40 H Iron TIBC Ferritin Total Bilirubin AST ALT Alkaline Phosphatase Total Creatine Kinase Troponin T C-Reactive Protein Total Protein Albumin Triglycerides HDL Cholesterol Miscellaneous Test Crossmatch 08/23/17 08/23/17 08/24/17 17:21 23:13 04:00 WBC 34.2 H RBC 2.86 L Hgb 8.4 L Hct 25.9 L MCV MCH RDW 17.9 H Plt Count Lymph % (Auto) [place] % (Auto) [place] # Seg Neutrophils % Seg Neuts % (Manual) 85.0 H Lymphocytes % (Manual) 0.5 L Monocytes % (Manual) Nucleated RBC % 1.0 H Seg Neutrophils # Seg Neutrophils # Man 29.1 H Lymphocytes # (Manual) 0.2 L Monocytes # (Manual) 2.4 H Eosinophils # (Manual) Basophils # (Manual) PT INR POC ABG pH ABG pH POC ABG pCO2 POC ABG pO2 ABG pO2 ABG O2 Saturation ABG Base Excess ABG Hemoglobin Oxyhemoglobin Sodium Potassium Chloride Carbon Dioxide BUN Creatinine Glucose POC Glucose 226 H 183 H Calcium Phosphorus Magnesium Iron TIBC Ferritin Total Bilirubin AST ALT Alkaline Phosphatase Total Creatine Kinase Troponin T C-Reactive Protein Total Protein Albumin Triglycerides HDL Cholesterol Miscellaneous Test Crossmatch 08/24/17 08/24/17 08/24/17 05:06 09:30 12:04 WBC RBC Hgb Hct MCV MCH RDW Plt Count Lymph % (Auto) [place] % (Auto) [place] # Seg Neutrophils % Seg Neuts % (Manual) Lymphocytes % (Manual) Monocytes % (Manual) Nucleated RBC % Seg Neutrophils # Seg Neutrophils # Man Lymphocytes # (Manual) Monocytes # (Manual) Eosinophils # (Manual) Basophils # (Manual) PT INR POC ABG pH ABG pH POC ABG pCO2 POC ABG pO2 ABG pO2 ABG O2 Saturation ABG Base Excess ABG Hemoglobin Oxyhemoglobin Sodium Potassium Chloride Carbon Dioxide BUN 46 H Creatinine 2.5 H Glucose 176 H POC Glucose 201 H 181 H Calcium Phosphorus Magnesium Iron TIBC Ferritin Total Bilirubin AST ALT Alkaline Phosphatase Total Creatine Kinase Troponin T C-Reactive Protein Total Protein Albumin Triglycerides HDL Cholesterol Miscellaneous Test Crossmatch 08/24/17 08/24/17 08/25/17 18:04 23:05 05:05 WBC RBC Hgb Hct MCV MCH RDW Plt Count Lymph % (Auto) [place] % (Auto) [place] # Seg Neutrophils % Seg Neuts % (Manual) Lymphocytes % (Manual) Monocytes % (Manual) Nucleated RBC % Seg Neutrophils # Seg Neutrophils # Man Lymphocytes # (Manual) Monocytes # (Manual) Eosinophils # (Manual) Basophils # (Manual) PT INR POC ABG pH ABG pH POC ABG pCO2 POC ABG pO2 ABG pO2 ABG O2 Saturation ABG Base Excess ABG Hemoglobin Oxyhemoglobin Sodium Potassium Chloride Carbon Dioxide BUN Creatinine Glucose POC Glucose 189 H 175 H 190 H Calcium Phosphorus Magnesium Iron TIBC Ferritin Total Bilirubin AST ALT Alkaline Phosphatase Total Creatine Kinase Troponin T C-Reactive Protein Total Protein Albumin Triglycerides HDL Cholesterol Miscellaneous Test Crossmatch 08/25/17 08/25/17 08/26/17 07:02 11:53 05:30 WBC 33.5 H RBC 2.47 L Hgb 7.3 L Hct 23.0 L MCV MCH RDW 21.3 H Plt Count Lymph % (Auto) [place] % (Auto) [place] # Seg Neutrophils % Seg Neuts % (Manual) 92.0 H Lymphocytes % (Manual) 1.0 L Monocytes % (Manual) Nucleated RBC % Seg Neutrophils # Seg Neutrophils # Man 30.8 H Lymphocytes # (Manual) 0.3 L Monocytes # (Manual) Eosinophils # (Manual) Basophils # (Manual) PT INR POC ABG pH ABG pH POC ABG pCO2 POC ABG pO2 ABG pO2 ABG O2 Saturation ABG Base Excess ABG Hemoglobin Oxyhemoglobin Sodium Potassium Chloride Carbon Dioxide BUN 32 H Creatinine 5.0 H D Glucose 117 H POC Glucose 191 H Calcium 8.0 L Phosphorus Magnesium Iron TIBC Ferritin Total Bilirubin AST ALT Alkaline Phosphatase Total Creatine Kinase Troponin T C-Reactive Protein Total Protein Albumin Triglycerides HDL Cholesterol Miscellaneous Test Crossmatch 08/26/17 08/26/17 08/26/17 05:30 06:44 13:26 WBC RBC Hgb Hct MCV MCH RDW Plt Count Lymph % (Auto) [place] % (Auto) [place] # Seg Neutrophils % Seg Neuts % (Manual) Lymphocytes % (Manual) Monocytes % (Manual) Nucleated RBC % Seg Neutrophils # Seg Neutrophils # Man Lymphocytes # (Manual) Monocytes # (Manual) Eosinophils # (Manual) Basophils # (Manual) PT INR POC ABG pH ABG pH POC ABG pCO2 POC ABG pO2 ABG pO2 ABG O2 Saturation ABG Base Excess ABG Hemoglobin Oxyhemoglobin Sodium Potassium 5.2 H Chloride Carbon Dioxide BUN 80 H Creatinine 3.4 H Glucose 193 H POC Glucose 232 H 207 H Calcium 8.3 L Phosphorus 6.80 H D Magnesium 2.60 H Iron TIBC Ferritin Total Bilirubin AST 135 H ALT Alkaline Phosphatase 211 H Total Creatine Kinase Troponin T C-Reactive Protein Total Protein 4.8 L Albumin 2.0 L Triglycerides HDL Cholesterol Miscellaneous Test Crossmatch 08/27/17 08/27/17 08/27/17 01:08 06:20 06:20 WBC 35.0 H RBC 2.75 L Hgb 8.4 L Hct 25.1 L MCV MCH RDW 21.8 H Plt Count Lymph % (Auto) [place] % (Auto) [place] # Seg Neutrophils % Seg Neuts % (Manual) Lymphocytes % (Manual) 4.5 L Monocytes % (Manual) Nucleated RBC % Seg Neutrophils # Seg Neutrophils # Man 31.9 H Lymphocytes # (Manual) Monocytes # (Manual) 1.2 H Eosinophils # (Manual) Basophils # (Manual) PT INR POC ABG pH ABG pH POC ABG pCO2 POC ABG pO2 ABG pO2 ABG O2 Saturation ABG Base Excess ABG Hemoglobin Oxyhemoglobin Sodium Potassium Chloride Carbon Dioxide BUN 61 H Creatinine 2.6 H Glucose 184 H POC Glucose 146 H Calcium Phosphorus 4.90 H D Magnesium Iron TIBC Ferritin Total Bilirubin AST ALT Alkaline Phosphatase Total Creatine Kinase Troponin T C-Reactive Protein Total Protein Albumin Triglycerides HDL Cholesterol Miscellaneous Test Crossmatch 08/27/17 08/27/17 08/27/17 07:01 09:17 12:52 WBC RBC Hgb Hct MCV MCH RDW Plt Count Lymph % (Auto) [place] % (Auto) [place] # Seg Neutrophils % Seg Neuts % (Manual) Lymphocytes % (Manual) Monocytes % (Manual) Nucleated RBC % Seg Neutrophils # Seg Neutrophils # Man Lymphocytes # (Manual) Monocytes # (Manual) Eosinophils # (Manual) Basophils # (Manual) PT INR POC ABG pH ABG pH POC ABG pCO2 POC ABG pO2 ABG pO2 ABG O2 Saturation ABG Base Excess ABG Hemoglobin Oxyhemoglobin Sodium Potassium Chloride Carbon Dioxide BUN Creatinine Glucose POC Glucose 165 H 198 H 218 H Calcium Phosphorus Magnesium Iron TIBC Ferritin Total Bilirubin AST ALT Alkaline Phosphatase Total Creatine Kinase Troponin T C-Reactive Protein Total Protein Albumin Triglycerides HDL Cholesterol Miscellaneous Test Crossmatch 08/27/17 08/28/17 08/28/17 17:27 02:13 06:46 WBC RBC Hgb Hct MCV MCH RDW Plt Count Lymph % (Auto) [place] % (Auto) [place] # Seg Neutrophils % Seg Neuts % (Manual) Lymphocytes % (Manual) Monocytes % (Manual) Nucleated RBC % Seg Neutrophils # Seg Neutrophils # Man Lymphocytes # (Manual) Monocytes # (Manual) Eosinophils # (Manual) Basophils # (Manual) PT INR POC ABG pH ABG pH POC ABG pCO2 POC ABG pO2 ABG pO2 ABG O2 Saturation ABG Base Excess ABG Hemoglobin Oxyhemoglobin Sodium Potassium Chloride Carbon Dioxide BUN Creatinine Glucose POC Glucose 151 H 155 H 230 H Calcium Phosphorus Magnesium Iron TIBC Ferritin Total Bilirubin AST ALT Alkaline Phosphatase Total Creatine Kinase Troponin T C-Reactive Protein Total Protein Albumin Triglycerides HDL Cholesterol Miscellaneous Test Crossmatch 08/28/17 08/28/17 08/28/17 06:53 06:53 08:19 WBC 31.1 H RBC 2.26 L Hgb 6.8 L Hct 20.9 L MCV MCH RDW 21.7 H Plt Count Lymph % (Auto) [place] % (Auto) [place] # Seg Neutrophils % Seg Neuts % (Manual) 83.0 H Lymphocytes % (Manual) 4.0 L Monocytes % (Manual) Nucleated RBC % Seg Neutrophils # Seg Neutrophils # Man 25.8 H Lymphocytes # (Manual) Monocytes # (Manual) Eosinophils # (Manual) Basophils # (Manual) PT INR POC ABG pH ABG pH POC ABG pCO2 POC ABG pO2 ABG pO2 ABG O2 Saturation ABG Base Excess ABG Hemoglobin Oxyhemoglobin Sodium Potassium Chloride Carbon Dioxide BUN 81 H Creatinine 3.4 H Glucose 218 H POC Glucose 239 H Calcium Phosphorus 4.90 H Magnesium Iron TIBC Ferritin Total Bilirubin AST ALT Alkaline Phosphatase Total Creatine Kinase Troponin T C-Reactive Protein Total Protein Albumin Triglycerides HDL Cholesterol Miscellaneous Test Crossmatch 08/28/17 08/28/17 08/28/17 11:56 13:05 13:29 WBC RBC Hgb Hct MCV MCH RDW Plt Count Lymph % (Auto) [place] % (Auto) [place] # Seg Neutrophils % Seg Neuts % (Manual) Lymphocytes % (Manual) Monocytes % (Manual) Nucleated RBC % Seg Neutrophils # Seg Neutrophils # Man Lymphocytes # (Manual) Monocytes # (Manual) Eosinophils # (Manual) Basophils # (Manual) PT 16.7 H INR 1.29 H POC ABG pH ABG pH POC ABG pCO2 POC ABG pO2 338 H ABG pO2 ABG O2 Saturation ABG Base Excess ABG Hemoglobin Oxyhemoglobin Sodium Potassium Chloride Carbon Dioxide BUN Creatinine Glucose POC Glucose Calcium Phosphorus Magnesium Iron TIBC Ferritin Total Bilirubin AST ALT Alkaline Phosphatase Total Creatine Kinase Troponin T C-Reactive Protein Total Protein Albumin Triglycerides HDL Cholesterol Miscellaneous Test Crossmatch See Detail 08/28/17 08/28/17 08/29/17 16:22 19:20 04:24 WBC RBC Hgb Hct MCV MCH RDW Plt Count Lymph % (Auto) [place] % (Auto) [place] # Seg Neutrophils % Seg Neuts % (Manual) Lymphocytes % (Manual) Monocytes % (Manual) Nucleated RBC % Seg Neutrophils # Seg Neutrophils # Man Lymphocytes # (Manual) Monocytes # (Manual) Eosinophils # (Manual) Basophils # (Manual) PT INR POC ABG pH 7.469 H ABG pH POC ABG pCO2 POC ABG pO2 240 H ABG pO2 ABG O2 Saturation ABG Base Excess ABG Hemoglobin Oxyhemoglobin Sodium Potassium Chloride Carbon Dioxide BUN Creatinine Glucose POC Glucose 209 H 195 H Calcium Phosphorus Magnesium Iron TIBC Ferritin Total Bilirubin AST ALT Alkaline Phosphatase Total Creatine Kinase Troponin T C-Reactive Protein Total Protein Albumin Triglycerides HDL Cholesterol Miscellaneous Test Crossmatch 08/29/17 08/29/17 08/29/17 04:30 04:30 12:07 WBC 44.9 H* RBC Hgb Hct MCV MCH RDW 23.1 H Plt Count Lymph % (Auto) [place] % (Auto) [place] # Seg Neutrophils % Seg Neuts % (Manual) 38.0 L Lymphocytes % (Manual) 10.0 L Monocytes % (Manual) 10.0 H Nucleated RBC % 6.0 H Seg Neutrophils # Seg Neutrophils # Man 17.1 H Lymphocytes # (Manual) Monocytes # (Manual) 4.5 H Eosinophils # (Manual) Basophils # (Manual) PT INR POC ABG pH ABG pH POC ABG pCO2 POC ABG pO2 ABG pO2 ABG O2 Saturation ABG Base Excess ABG Hemoglobin Oxyhemoglobin Sodium Potassium Chloride Carbon Dioxide BUN 61 H Creatinine 2.4 H Glucose 226 H POC Glucose 200 H Calcium Phosphorus Magnesium Iron TIBC Ferritin Total Bilirubin AST ALT Alkaline Phosphatase Total Creatine Kinase Troponin T C-Reactive Protein Total Protein Albumin Triglycerides HDL Cholesterol Miscellaneous Test Crossmatch 08/29/17 08/29/17 08/29/17 12:30 12:30 17:23 WBC RBC Hgb Hct MCV MCH RDW Plt Count Lymph % (Auto) [place] % (Auto) [place] # Seg Neutrophils % Seg Neuts % (Manual) Lymphocytes % (Manual) Monocytes % (Manual) Nucleated RBC % Seg Neutrophils # Seg Neutrophils # Man Lymphocytes # (Manual) Monocytes # (Manual) Eosinophils # (Manual) Basophils # (Manual) PT INR POC ABG pH ABG pH POC ABG pCO2 POC ABG pO2 ABG pO2 ABG O2 Saturation ABG Base Excess ABG Hemoglobin Oxyhemoglobin Sodium Potassium Chloride Carbon Dioxide BUN Creatinine Glucose POC Glucose 270 H Calcium Phosphorus Magnesium Iron TIBC Ferritin Total Bilirubin AST ALT Alkaline Phosphatase Total Creatine Kinase Troponin T C-Reactive Protein 19.10 H Total Protein Albumin Triglycerides HDL Cholesterol Miscellaneous Test Flexitest 1 H Crossmatch 08/30/17 08/30/17 08/30/17 00:10 01:30 03:31 WBC RBC Hgb Hct MCV MCH RDW Plt Count Lymph % (Auto) [place] % (Auto) [place] # Seg Neutrophils % Seg Neuts % (Manual) Lymphocytes % (Manual) Monocytes % (Manual) Nucleated RBC % Seg Neutrophils # Seg Neutrophils # Man Lymphocytes # (Manual) Monocytes # (Manual) Eosinophils # (Manual) Basophils # (Manual) PT INR POC ABG pH 7.168 L 7.335 L ABG pH POC ABG pCO2 72.8 H POC ABG pO2 257 H 117 H ABG pO2 ABG O2 Saturation ABG Base Excess ABG Hemoglobin Oxyhemoglobin Sodium Potassium Chloride Carbon Dioxide BUN Creatinine Glucose POC Glucose 245 H Calcium Phosphorus Magnesium Iron TIBC Ferritin Total Bilirubin AST ALT Alkaline Phosphatase Total Creatine Kinase Troponin T C-Reactive Protein Total Protein Albumin Triglycerides HDL Cholesterol Miscellaneous Test Crossmatch 08/30/17 08/30/17 08/30/17 05:20 05:20 05:20 WBC 40.9 H* RBC 3.64 L Hgb Hct MCV MCH RDW 24.3 H Plt Count Lymph % (Auto) [place] % (Auto) [place] # Seg Neutrophils % Seg Neuts % (Manual) 80.0 H Lymphocytes % (Manual) 3.0 L Monocytes % (Manual) Nucleated RBC % 1.0 H Seg Neutrophils # Seg Neutrophils # Man 32.7 H Lymphocytes # (Manual) Monocytes # (Manual) Eosinophils # (Manual) Basophils # (Manual) PT INR POC ABG pH ABG pH POC ABG pCO2 POC ABG pO2 ABG pO2 ABG O2 Saturation ABG Base Excess ABG Hemoglobin Oxyhemoglobin Sodium Potassium Chloride Carbon Dioxide BUN 83 H Creatinine 2.9 H Glucose 334 H POC Glucose 309 H Calcium Phosphorus Magnesium Iron TIBC Ferritin Total Bilirubin AST ALT Alkaline Phosphatase Total Creatine Kinase Troponin T C-Reactive Protein Total Protein Albumin Triglycerides HDL Cholesterol Miscellaneous Test Crossmatch 08/30/17 08/30/17 08/31/17 12:18 17:36 00:17 WBC RBC Hgb Hct MCV MCH RDW Plt Count Lymph % (Auto) [place] % (Auto) [place] # Seg Neutrophils % Seg Neuts % (Manual) Lymphocytes % (Manual) Monocytes % (Manual) Nucleated RBC % Seg Neutrophils # Seg Neutrophils # Man Lymphocytes # (Manual) Monocytes # (Manual) Eosinophils # (Manual) Basophils # (Manual) PT INR POC ABG pH ABG pH POC ABG pCO2 POC ABG pO2 ABG pO2 ABG O2 Saturation ABG Base Excess ABG Hemoglobin Oxyhemoglobin Sodium Potassium Chloride Carbon Dioxide BUN Creatinine Glucose POC Glucose 273 H 293 H 360 H Calcium Phosphorus Magnesium Iron TIBC Ferritin Total Bilirubin AST ALT Alkaline Phosphatase Total Creatine Kinase Troponin T C-Reactive Protein Total Protein Albumin Triglycerides HDL Cholesterol Miscellaneous Test Crossmatch 08/31/17 08/31/17 08/31/17 05:30 05:30 05:32 WBC 29.9 H RBC 2.89 L Hgb 8.2 L Hct 24.7 L D MCV MCH RDW 24.4 H Plt Count Lymph % (Auto) [place] % (Auto) [place] # Seg Neutrophils % Seg Neuts % (Manual) Lymphocytes % (Manual) 2.0 L Monocytes % (Manual) Nucleated RBC % 2.0 H Seg Neutrophils # Seg Neutrophils # Man 18.5 H Lymphocytes # (Manual) 0.6 L Monocytes # (Manual) 0.9 H Eosinophils # (Manual) Basophils # (Manual) PT INR POC ABG pH ABG pH POC ABG pCO2 POC ABG pO2 ABG pO2 ABG O2 Saturation ABG Base Excess ABG Hemoglobin Oxyhemoglobin Sodium Potassium Chloride Carbon Dioxide BUN 62 H Creatinine 2.2 H Glucose 245 H POC Glucose 257 H Calcium Phosphorus 2.10 L D Magnesium 1.60 L Iron TIBC Ferritin Total Bilirubin AST ALT Alkaline Phosphatase Total Creatine Kinase Troponin T C-Reactive Protein Total Protein Albumin Triglycerides HDL Cholesterol Miscellaneous Test Crossmatch 08/31/17 08/31/17 08/31/17 11:56 12:05 18:14 WBC 32.5 H RBC 3.19 L Hgb 8.8 L Hct 27.9 L MCV MCH RDW 24.9 H Plt Count Lymph % (Auto) [place] % (Auto) [place] # Seg Neutrophils % Seg Neuts % (Manual) Lymphocytes % (Manual) 1.0 L Monocytes % (Manual) 12.0 H Nucleated RBC % 1.0 H Seg Neutrophils # Seg Neutrophils # Man 13.3 H Lymphocytes # (Manual) 0.3 L Monocytes # (Manual) 3.9 H Eosinophils # (Manual) Basophils # (Manual) PT INR POC ABG pH ABG pH POC ABG pCO2 POC ABG pO2 ABG pO2 ABG O2 Saturation ABG Base Excess ABG Hemoglobin Oxyhemoglobin Sodium Potassium Chloride Carbon Dioxide BUN Creatinine Glucose POC Glucose 245 H Calcium Phosphorus Magnesium Iron TIBC Ferritin Total Bilirubin AST ALT Alkaline Phosphatase Total Creatine Kinase Troponin T C-Reactive Protein Total Protein Albumin Triglycerides HDL Cholesterol Miscellaneous Test Crossmatch See Detail 08/31/17 08/31/17 08/31/17 18:14 18:15 18:22 WBC RBC Hgb Hct MCV MCH RDW Plt Count Lymph % (Auto) [place] % (Auto) [place] # Seg Neutrophils % Seg Neuts % (Manual) Lymphocytes % (Manual) Monocytes % (Manual) Nucleated RBC % Seg Neutrophils # Seg Neutrophils # Man Lymphocytes # (Manual) Monocytes # (Manual) Eosinophils # (Manual) Basophils # (Manual) PT 15.1 H INR POC ABG pH ABG pH POC ABG pCO2 POC ABG pO2 ABG pO2 ABG O2 Saturation ABG Base Excess ABG Hemoglobin Oxyhemoglobin Sodium 136 L Potassium Chloride Carbon Dioxide 21 L BUN 69 H Creatinine 2.3 H Glucose 227 H POC Glucose 240 H Calcium Phosphorus 2.40 L Magnesium 1.50 L Iron TIBC Ferritin Total Bilirubin AST 143 H ALT 114 H Alkaline Phosphatase 267 H Total Creatine Kinase Troponin T C-Reactive Protein Total Protein 4.1 L Albumin 1.8 L Triglycerides HDL Cholesterol Miscellaneous Test Crossmatch 08/31/17 09/01/17 09/01/17 23:53 05:00 05:00 WBC 33.9 H RBC 2.85 L Hgb 7.8 L Hct 24.8 L MCV MCH 27 L RDW 23.9 H Plt Count Lymph % (Auto) [place] % (Auto) [place] # Seg Neutrophils % Seg Neuts % (Manual) Lymphocytes % (Manual) 5.0 L Monocytes % (Manual) Nucleated RBC % Seg Neutrophils # Seg Neutrophils # Man 23.1 H Lymphocytes # (Manual) Monocytes # (Manual) Eosinophils # (Manual) Basophils # (Manual) PT INR POC ABG pH ABG pH POC ABG pCO2 POC ABG pO2 ABG pO2 ABG O2 Saturation ABG Base Excess ABG Hemoglobin Oxyhemoglobin Sodium Potassium Chloride Carbon Dioxide BUN 51 H Creatinine 1.8 H Glucose 195 H POC Glucose 301 H Calcium Phosphorus 1.70 L D Magnesium 1.60 L Iron TIBC Ferritin Total Bilirubin AST 80 H ALT 82 H Alkaline Phosphatase 243 H Total Creatine Kinase Troponin T C-Reactive Protein Total Protein 4.2 L Albumin 1.7 L Triglycerides HDL Cholesterol Miscellaneous Test Crossmatch 09/01/17 09/01/17 09/01/17 05:20 05:47 11:37 WBC RBC Hgb Hct MCV MCH RDW Plt Count Lymph % (Auto) [place] % (Auto) [place] # Seg Neutrophils % Seg Neuts % (Manual) Lymphocytes % (Manual) Monocytes % (Manual) Nucleated RBC % Seg Neutrophils # Seg Neutrophils # Man Lymphocytes # (Manual) Monocytes # (Manual) Eosinophils # (Manual) Basophils # (Manual) PT INR POC ABG pH ABG pH 7.348 L POC ABG pCO2 POC ABG pO2 ABG pO2 70.2 L ABG O2 Saturation ABG Base Excess ABG Hemoglobin 7.5 L Oxyhemoglobin Sodium Potassium Chloride Carbon Dioxide BUN Creatinine Glucose POC Glucose 230 H 254 H Calcium Phosphorus Magnesium Iron TIBC Ferritin Total Bilirubin AST ALT Alkaline Phosphatase Total Creatine Kinase Troponin T C-Reactive Protein Total Protein Albumin Triglycerides HDL Cholesterol Miscellaneous Test Crossmatch 09/01/17 09/01/17 09/02/17 17:39 23:14 04:55 WBC RBC Hgb Hct MCV MCH RDW Plt Count Lymph % (Auto) [place] % (Auto) [place] # Seg Neutrophils % Seg Neuts % (Manual) Lymphocytes % (Manual) Monocytes % (Manual) Nucleated RBC % Seg Neutrophils # Seg Neutrophils # Man Lymphocytes # (Manual) Monocytes # (Manual) Eosinophils # (Manual) Basophils # (Manual) PT INR POC ABG pH ABG pH POC ABG pCO2 POC ABG pO2 ABG pO2 124.8 H ABG O2 Saturation ABG Base Excess -2.9 L ABG Hemoglobin 5.8 L Oxyhemoglobin Sodium Potassium Chloride Carbon Dioxide BUN Creatinine Glucose POC Glucose 297 H 291 H Calcium Phosphorus Magnesium Iron TIBC Ferritin Total Bilirubin AST ALT Alkaline Phosphatase Total Creatine Kinase Troponin T C-Reactive Protein Total Protein Albumin Triglycerides HDL Cholesterol Miscellaneous Test Crossmatch 09/02/17 09/02/17 09/02/17 05:31 06:10 11:58 WBC RBC Hgb Hct MCV MCH RDW Plt Count Lymph % (Auto) [place] % (Auto) [place] # Seg Neutrophils % Seg Neuts % (Manual) Lymphocytes % (Manual) Monocytes % (Manual) Nucleated RBC % Seg Neutrophils # Seg Neutrophils # Man Lymphocytes # (Manual) Monocytes # (Manual) Eosinophils # (Manual) Basophils # (Manual) PT INR POC ABG pH ABG pH POC ABG pCO2 POC ABG pO2 ABG pO2 ABG O2 Saturation ABG Base Excess ABG Hemoglobin Oxyhemoglobin Sodium Potassium Chloride Carbon Dioxide BUN 68 H Creatinine 2.2 H Glucose 369 H POC Glucose 245 H 333 H Calcium 8.2 L Phosphorus Magnesium Iron TIBC Ferritin Total Bilirubin AST ALT Alkaline Phosphatase Total Creatine Kinase Troponin T C-Reactive Protein Total Protein Albumin Triglycerides HDL Cholesterol Miscellaneous Test Crossmatch 09/02/17 09/02/17 09/03/17 15:37 23:50 04:00 WBC RBC Hgb Hct MCV MCH RDW Plt Count Lymph % (Auto) [place] % (Auto) [place] # Seg Neutrophils % Seg Neuts % (Manual) Lymphocytes % (Manual) Monocytes % (Manual) Nucleated RBC % Seg Neutrophils # Seg Neutrophils # Man Lymphocytes # (Manual) Monocytes # (Manual) Eosinophils # (Manual) Basophils # (Manual) PT INR POC ABG pH ABG pH POC ABG pCO2 POC ABG pO2 ABG pO2 ABG O2 Saturation ABG Base Excess ABG Hemoglobin Oxyhemoglobin Sodium Potassium Chloride Carbon Dioxide BUN 59 H Creatinine 1.9 H Glucose 231 H POC Glucose 314 H 240 H Calcium 8.0 L Phosphorus Magnesium Iron TIBC Ferritin Total Bilirubin AST ALT Alkaline Phosphatase 265 H Total Creatine Kinase Troponin T C-Reactive Protein Total Protein 4.4 L Albumin 1.7 L Triglycerides 180 H HDL Cholesterol Miscellaneous Test Crossmatch 09/03/17 09/03/17 09/03/17 05:00 05:32 11:52 WBC 41.5 H* RBC 2.46 L Hgb 6.9 L Hct 21.3 L MCV MCH RDW 24.9 H Plt Count Lymph % (Auto) [place] % (Auto) [place] # Seg Neutrophils % Seg Neuts % (Manual) Lymphocytes % (Manual) 3.0 L Monocytes % (Manual) 9.5 H Nucleated RBC % 1.5 H Seg Neutrophils # Seg Neutrophils # Man 28.8 H Lymphocytes # (Manual) Monocytes # (Manual) 3.9 H Eosinophils # (Manual) Basophils # (Manual) PT INR POC ABG pH ABG pH POC ABG pCO2 POC ABG pO2 ABG pO2 ABG O2 Saturation ABG Base Excess ABG Hemoglobin Oxyhemoglobin Sodium Potassium Chloride Carbon Dioxide BUN Creatinine Glucose POC Glucose 188 H 285 H Calcium Phosphorus Magnesium Iron TIBC Ferritin Total Bilirubin AST ALT Alkaline Phosphatase Total Creatine Kinase Troponin T C-Reactive Protein Total Protein Albumin Triglycerides HDL Cholesterol Miscellaneous Test Crossmatch 09/03/17 09/03/17 09/03/17 16:55 17:44 23:56 WBC RBC Hgb Hct MCV MCH RDW Plt Count Lymph % (Auto) [place] % (Auto) [place] # Seg Neutrophils % Seg Neuts % (Manual) Lymphocytes % (Manual) Monocytes % (Manual) Nucleated RBC % Seg Neutrophils # Seg Neutrophils # Man Lymphocytes # (Manual) Monocytes # (Manual) Eosinophils # (Manual) Basophils # (Manual) PT INR POC ABG pH ABG pH POC ABG pCO2 POC ABG pO2 ABG pO2 ABG O2 Saturation ABG Base Excess ABG Hemoglobin Oxyhemoglobin Sodium Potassium Chloride Carbon Dioxide BUN Creatinine Glucose POC Glucose 217 H 193 H Calcium Phosphorus Magnesium Iron TIBC Ferritin Total Bilirubin AST ALT Alkaline Phosphatase Total Creatine Kinase Troponin T C-Reactive Protein Total Protein Albumin Triglycerides HDL Cholesterol Miscellaneous Test Crossmatch See Detail 09/03/17 09/04/17 09/04/17 Unknown 03:47 04:32 WBC 44.7 H* RBC 3.12 L Hgb 8.7 L Hct 26.7 L MCV MCH RDW 23.5 H Plt Count Lymph % (Auto) [place] % (Auto) [place] # Seg Neutrophils % Seg Neuts % (Manual) Lymphocytes % (Manual) 4.0 L Monocytes % (Manual) Nucleated RBC % 2.0 H Seg Neutrophils # Seg Neutrophils # Man 30.8 H Lymphocytes # (Manual) Monocytes # (Manual) 2.2 H Eosinophils # (Manual) Basophils # (Manual) PT INR POC ABG pH ABG pH POC ABG pCO2 POC ABG pO2 ABG pO2 133.4 H 135.0 H ABG O2 Saturation ABG Base Excess -2.5 L ABG Hemoglobin 5.8 L 7.9 L Oxyhemoglobin Sodium Potassium Chloride Carbon Dioxide BUN Creatinine Glucose POC Glucose Calcium Phosphorus Magnesium Iron TIBC Ferritin Total Bilirubin AST ALT Alkaline Phosphatase Total Creatine Kinase Troponin T C-Reactive Protein Total Protein Albumin Triglycerides HDL Cholesterol Miscellaneous Test Crossmatch 09/04/17 09/04/17 09/04/17 04:32 05:48 10:43 WBC RBC Hgb Hct MCV MCH RDW Plt Count Lymph % (Auto) [place] % (Auto) [place] # Seg Neutrophils % Seg Neuts % (Manual) Lymphocytes % (Manual) Monocytes % (Manual) Nucleated RBC % Seg Neutrophils # Seg Neutrophils # Man Lymphocytes # (Manual) Monocytes # (Manual) Eosinophils # (Manual) Basophils # (Manual) PT INR POC ABG pH ABG pH POC ABG pCO2 POC ABG pO2 ABG pO2 ABG O2 Saturation ABG Base Excess ABG Hemoglobin Oxyhemoglobin Sodium 136 L Potassium 5.2 H D Chloride 94.2 L Carbon Dioxide BUN 71 H Creatinine 2.3 H Glucose 235 H POC Glucose 329 H Calcium 8.3 L Phosphorus Magnesium Iron TIBC Ferritin Total Bilirubin AST ALT Alkaline Phosphatase Total Creatine Kinase Troponin T C-Reactive Protein Total Protein Albumin Triglycerides HDL Cholesterol Miscellaneous Test Flexitest 1 H Crossmatch 09/04/17 09/04/17 09/05/17 12:38 17:30 00:15 WBC RBC Hgb Hct MCV MCH RDW Plt Count Lymph % (Auto) [place] % (Auto) [place] # Seg Neutrophils % Seg Neuts % (Manual) Lymphocytes % (Manual) Monocytes % (Manual) Nucleated RBC % Seg Neutrophils # Seg Neutrophils # Man Lymphocytes # (Manual) Monocytes # (Manual) Eosinophils # (Manual) Basophils # (Manual) PT INR POC ABG pH ABG pH POC ABG pCO2 POC ABG pO2 ABG pO2 ABG O2 Saturation ABG Base Excess ABG Hemoglobin Oxyhemoglobin Sodium Potassium Chloride Carbon Dioxide BUN Creatinine Glucose POC Glucose 444 H 331 H 362 H Calcium Phosphorus Magnesium Iron TIBC Ferritin Total Bilirubin AST ALT Alkaline Phosphatase Total Creatine Kinase Troponin T C-Reactive Protein Total Protein Albumin Triglycerides HDL Cholesterol Miscellaneous Test Crossmatch 09/05/17 09/05/17 09/05/17 03:55 03:55 12:12 WBC 35.3 H RBC 2.87 L Hgb 8.1 L Hct 24.6 L MCV MCH RDW 23.3 H Plt Count Lymph % (Auto) [place] % (Auto) [place] # Seg Neutrophils % Seg Neuts % (Manual) 89.5 H Lymphocytes % (Manual) 3.0 L Monocytes % (Manual) Nucleated RBC % 2.5 H Seg Neutrophils # Seg Neutrophils # Man 31.6 H Lymphocytes # (Manual) 1.1 L Monocytes # (Manual) Eosinophils # (Manual) Basophils # (Manual) PT INR POC ABG pH ABG pH POC ABG pCO2 POC ABG pO2 ABG pO2 ABG O2 Saturation ABG Base Excess ABG Hemoglobin Oxyhemoglobin Sodium 136 L Potassium Chloride 94.7 L Carbon Dioxide BUN 55 H Creatinine 1.8 H Glucose 193 H POC Glucose 344 H Calcium 8.1 L Phosphorus Magnesium Iron TIBC Ferritin Total Bilirubin AST ALT Alkaline Phosphatase Total Creatine Kinase Troponin T C-Reactive Protein Total Protein Albumin Triglycerides HDL Cholesterol Miscellaneous Test Crossmatch 09/05/17 09/05/17 09/05/17 14:32 15:32 16:41 WBC RBC Hgb Hct MCV MCH RDW Plt Count Lymph % (Auto) [place] % (Auto) [place] # Seg Neutrophils % Seg Neuts % (Manual) Lymphocytes % (Manual) Monocytes % (Manual) Nucleated RBC % Seg Neutrophils # Seg Neutrophils # Man Lymphocytes # (Manual) Monocytes # (Manual) Eosinophils # (Manual) Basophils # (Manual) PT INR POC ABG pH ABG pH POC ABG pCO2 POC ABG pO2 ABG pO2 ABG O2 Saturation ABG Base Excess ABG Hemoglobin Oxyhemoglobin Sodium Potassium Chloride Carbon Dioxide BUN Creatinine Glucose POC Glucose 265 H 145 H 188 H Calcium Phosphorus Magnesium Iron TIBC Ferritin Total Bilirubin AST ALT Alkaline Phosphatase Total Creatine Kinase Troponin T C-Reactive Protein Total Protein Albumin Triglycerides HDL Cholesterol Miscellaneous Test Crossmatch 09/05/17 09/05/17 09/05/17 17:28 18:38 20:10 WBC RBC Hgb Hct MCV MCH RDW Plt Count Lymph % (Auto) [place] % (Auto) [place] # Seg Neutrophils % Seg Neuts % (Manual) Lymphocytes % (Manual) Monocytes % (Manual) Nucleated RBC % Seg Neutrophils # Seg Neutrophils # Man Lymphocytes # (Manual) Monocytes # (Manual) Eosinophils # (Manual) Basophils # (Manual) PT INR POC ABG pH ABG pH POC ABG pCO2 POC ABG pO2 ABG pO2 ABG O2 Saturation ABG Base Excess ABG Hemoglobin Oxyhemoglobin Sodium Potassium Chloride Carbon Dioxide BUN Creatinine Glucose POC Glucose 246 H 271 H 165 H Calcium Phosphorus Magnesium Iron TIBC Ferritin Total Bilirubin AST ALT Alkaline Phosphatase Total Creatine Kinase Troponin T C-Reactive Protein Total Protein Albumin Triglycerides HDL Cholesterol Miscellaneous Test Crossmatch 09/05/17 09/05/17 09/06/17 21:06 23:07 00:10 WBC RBC Hgb Hct MCV MCH RDW Plt Count Lymph % (Auto) [place] % (Auto) [place] # Seg Neutrophils % Seg Neuts % (Manual) Lymphocytes % (Manual) Monocytes % (Manual) Nucleated RBC % Seg Neutrophils # Seg Neutrophils # Man Lymphocytes # (Manual) Monocytes # (Manual) Eosinophils # (Manual) Basophils # (Manual) PT INR POC ABG pH ABG pH POC ABG pCO2 POC ABG pO2 ABG pO2 ABG O2 Saturation ABG Base Excess ABG Hemoglobin Oxyhemoglobin Sodium Potassium Chloride Carbon Dioxide BUN Creatinine Glucose POC Glucose 134 H 135 H 147 H Calcium Phosphorus Magnesium Iron TIBC Ferritin Total Bilirubin AST ALT Alkaline Phosphatase Total Creatine Kinase Troponin T C-Reactive Protein Total Protein Albumin Triglycerides HDL Cholesterol Miscellaneous Test Crossmatch 09/06/17 09/06/17 09/06/17 01:08 02:01 03:08 WBC RBC Hgb Hct MCV MCH RDW Plt Count Lymph % (Auto) [place] % (Auto) [place] # Seg Neutrophils % Seg Neuts % (Manual) Lymphocytes % (Manual) Monocytes % (Manual) Nucleated RBC % Seg Neutrophils # Seg Neutrophils # Man Lymphocytes # (Manual) Monocytes # (Manual) Eosinophils # (Manual) Basophils # (Manual) PT INR POC ABG pH ABG pH POC ABG pCO2 POC ABG pO2 ABG pO2 ABG O2 Saturation ABG Base Excess ABG Hemoglobin Oxyhemoglobin Sodium Potassium Chloride Carbon Dioxide BUN Creatinine Glucose POC Glucose 133 H 146 H 135 H Calcium Phosphorus Magnesium Iron TIBC Ferritin Total Bilirubin AST ALT Alkaline Phosphatase Total Creatine Kinase Troponin T C-Reactive Protein Total Protein Albumin Triglycerides HDL Cholesterol Miscellaneous Test Crossmatch 09/06/17 09/06/17 09/06/17 05:30 05:30 05:30 WBC 38.6 H RBC 2.95 L Hgb 8.3 L Hct 25.3 L MCV MCH RDW 22.2 H Plt Count Lymph % (Auto) [place] % (Auto) [place] # Seg Neutrophils % Seg Neuts % (Manual) Lymphocytes % (Manual) 2.0 L Monocytes % (Manual) Nucleated RBC % 5.0 H Seg Neutrophils # Seg Neutrophils # Man 25.9 H Lymphocytes # (Manual) 0.8 L Monocytes # (Manual) 1.9 H Eosinophils # (Manual) Basophils # (Manual) PT INR POC ABG pH ABG pH POC ABG pCO2 POC ABG pO2 ABG pO2 ABG O2 Saturation ABG Base Excess ABG Hemoglobin Oxyhemoglobin Sodium 135 L Potassium Chloride 93.5 L Carbon Dioxide BUN 82 H Creatinine 2.3 H Glucose 148 H POC Glucose Calcium Phosphorus Magnesium Iron TIBC Ferritin Total Bilirubin AST ALT Alkaline Phosphatase Total Creatine Kinase Troponin T C-Reactive Protein 2.80 H Total Protein Albumin Triglycerides HDL Cholesterol Miscellaneous Test Crossmatch 09/06/17 09/06/17 09/06/17 05:48 08:04 09:06 WBC RBC Hgb Hct MCV MCH RDW Plt Count Lymph % (Auto) [place] % (Auto) [place] # Seg Neutrophils % Seg Neuts % (Manual) Lymphocytes % (Manual) Monocytes % (Manual) Nucleated RBC % Seg Neutrophils # Seg Neutrophils # Man Lymphocytes # (Manual) Monocytes # (Manual) Eosinophils # (Manual) Basophils # (Manual) PT INR POC ABG pH ABG pH POC ABG pCO2 POC ABG pO2 ABG pO2 ABG O2 Saturation ABG Base Excess ABG Hemoglobin Oxyhemoglobin Sodium Potassium Chloride Carbon Dioxide BUN Creatinine Glucose POC Glucose 152 H 164 H 172 H Calcium Phosphorus Magnesium Iron TIBC Ferritin Total Bilirubin AST ALT Alkaline Phosphatase Total Creatine Kinase Troponin T C-Reactive Protein Total Protein Albumin Triglycerides HDL Cholesterol Miscellaneous Test Crossmatch 09/06/17 09/06/17 09/06/17 09:57 10:19 10:57 WBC RBC Hgb Hct MCV MCH RDW Plt Count Lymph % (Auto) [place] % (Auto) [place] # Seg Neutrophils % Seg Neuts % (Manual) Lymphocytes % (Manual) Monocytes % (Manual) Nucleated RBC % Seg Neutrophils # Seg Neutrophils # Man Lymphocytes # (Manual) Monocytes # (Manual) Eosinophils # (Manual) Basophils # (Manual) PT INR POC ABG pH ABG pH POC ABG pCO2 POC ABG pO2 ABG pO2 ABG O2 Saturation ABG Base Excess ABG Hemoglobin Oxyhemoglobin Sodium Potassium Chloride Carbon Dioxide BUN Creatinine Glucose POC Glucose 186 H 162 H Calcium Phosphorus Magnesium Iron TIBC Ferritin Total Bilirubin AST ALT Alkaline Phosphatase Total Creatine Kinase Troponin T C-Reactive Protein Total Protein Albumin Triglycerides HDL Cholesterol Miscellaneous Test Flexitest 1 H Crossmatch 09/06/17 09/06/17 09/06/17 13:12 13:40 17:36 WBC RBC Hgb 8.9 L Hct 28.5 L MCV MCH RDW Plt Count Lymph % (Auto) [place] % (Auto) [place] # Seg Neutrophils % Seg Neuts % (Manual) Lymphocytes % (Manual) Monocytes % (Manual) Nucleated RBC % Seg Neutrophils # Seg Neutrophils # Man Lymphocytes # (Manual) Monocytes # (Manual) Eosinophils # (Manual) Basophils # (Manual) PT INR POC ABG pH ABG pH POC ABG pCO2 POC ABG pO2 ABG pO2 ABG O2 Saturation ABG Base Excess ABG Hemoglobin Oxyhemoglobin Sodium Potassium Chloride Carbon Dioxide BUN Creatinine Glucose POC Glucose 166 H 161 H Calcium Phosphorus Magnesium Iron TIBC Ferritin Total Bilirubin AST ALT Alkaline Phosphatase Total Creatine Kinase Troponin T C-Reactive Protein Total Protein Albumin Triglycerides HDL Cholesterol Miscellaneous Test Crossmatch 09/07/17 09/07/17 09/07/17 00:13 03:50 03:50 WBC 47.0 H* RBC 2.81 L Hgb 8.1 L Hct 24.1 L MCV MCH RDW 22.5 H Plt Count Lymph % (Auto) [place] % (Auto) [place] # Seg Neutrophils % Seg Neuts % (Manual) Lymphocytes % (Manual) 9.0 L Monocytes % (Manual) Nucleated RBC % 6.0 H Seg Neutrophils # Seg Neutrophils # Man 27.3 H Lymphocytes # (Manual) Monocytes # (Manual) 0.9 H Eosinophils # (Manual) 1.9 H Basophils # (Manual) PT INR POC ABG pH ABG pH POC ABG pCO2 POC ABG pO2 ABG pO2 ABG O2 Saturation ABG Base Excess ABG Hemoglobin Oxyhemoglobin Sodium 136 L Potassium Chloride 96.3 L Carbon Dioxide BUN 61 H Creatinine 1.7 H Glucose 132 H POC Glucose 183 H Calcium 7.8 L Phosphorus Magnesium Iron TIBC Ferritin Total Bilirubin AST ALT Alkaline Phosphatase Total Creatine Kinase Troponin T C-Reactive Protein Total Protein Albumin Triglycerides HDL Cholesterol Miscellaneous Test Crossmatch 09/07/17 09/07/17 09/07/17 05:12 05:23 11:48 WBC RBC Hgb Hct MCV MCH RDW Plt Count Lymph % (Auto) [place] % (Auto) [place] # Seg Neutrophils % Seg Neuts % (Manual) Lymphocytes % (Manual) Monocytes % (Manual) Nucleated RBC % Seg Neutrophils # Seg Neutrophils # Man Lymphocytes # (Manual) Monocytes # (Manual) Eosinophils # (Manual) Basophils # (Manual) PT INR POC ABG pH ABG pH POC ABG pCO2 POC ABG pO2 ABG pO2 ABG O2 Saturation ABG Base Excess ABG Hemoglobin 7.7 L Oxyhemoglobin 94.8 L Sodium Potassium Chloride Carbon Dioxide BUN Creatinine Glucose POC Glucose 162 H 200 H Calcium Phosphorus Magnesium Iron TIBC Ferritin Total Bilirubin AST ALT Alkaline Phosphatase Total Creatine Kinase Troponin T C-Reactive Protein Total Protein Albumin Triglycerides HDL Cholesterol Miscellaneous Test Crossmatch 09/07/17 09/07/17 09/08/17 17:07 18:21 00:06 WBC RBC Hgb Hct MCV MCH RDW Plt Count Lymph % (Auto) [place] % (Auto) [place] # Seg Neutrophils % Seg Neuts % (Manual) Lymphocytes % (Manual) Monocytes % (Manual) Nucleated RBC % Seg Neutrophils # Seg Neutrophils # Man Lymphocytes # (Manual) Monocytes # (Manual) Eosinophils # (Manual) Basophils # (Manual) PT INR POC ABG pH ABG pH POC ABG pCO2 POC ABG pO2 ABG pO2 ABG O2 Saturation ABG Base Excess ABG Hemoglobin Oxyhemoglobin Sodium Potassium Chloride Carbon Dioxide BUN Creatinine Glucose POC Glucose 181 H 168 H Calcium Phosphorus Magnesium Iron TIBC Ferritin Total Bilirubin AST ALT Alkaline Phosphatase Total Creatine Kinase Troponin T C-Reactive Protein Total Protein Albumin Triglycerides HDL Cholesterol Miscellaneous Test Crossmatch See Detail 09/08/17 09/08/17 09/08/17 04:05 04:05 04:41 WBC 49.7 H* RBC 2.58 L Hgb 7.3 L Hct 22.7 L MCV MCH RDW 22.5 H Plt Count Lymph % (Auto) [place] % (Auto) [place] # Seg Neutrophils % Seg Neuts % (Manual) 90.5 H Lymphocytes % (Manual) 1.5 L Monocytes % (Manual) Nucleated RBC % Seg Neutrophils # Seg Neutrophils # Man 45.0 H Lymphocytes # (Manual) 0.7 L Monocytes # (Manual) 1.7 H Eosinophils # (Manual) Basophils # (Manual) PT INR POC ABG pH ABG pH POC ABG pCO2 POC ABG pO2 ABG pO2 ABG O2 Saturation ABG Base Excess ABG Hemoglobin Oxyhemoglobin Sodium 132 L Potassium Chloride 92.1 L Carbon Dioxide BUN 82 H Creatinine 2.2 H Glucose 162 H POC Glucose 235 H Calcium 8.3 L Phosphorus 5.20 H D Magnesium Iron TIBC Ferritin Total Bilirubin AST ALT Alkaline Phosphatase 199 H Total Creatine Kinase Troponin T C-Reactive Protein Total Protein 4.5 L Albumin 1.7 L Triglycerides HDL Cholesterol Miscellaneous Test Crossmatch 09/08/17 09/08/17 09/08/17 09:21 11:52 17:38 WBC RBC Hgb Hct MCV MCH RDW Plt Count Lymph % (Auto) [place] % (Auto) [place] # Seg Neutrophils % Seg Neuts % (Manual) Lymphocytes % (Manual) Monocytes % (Manual) Nucleated RBC % Seg Neutrophils # Seg Neutrophils # Man Lymphocytes # (Manual) Monocytes # (Manual) Eosinophils # (Manual) Basophils # (Manual) PT INR POC ABG pH ABG pH POC ABG pCO2 POC ABG pO2 ABG pO2 218.5 H ABG O2 Saturation 99.3 H ABG Base Excess -3.5 L ABG Hemoglobin 7.7 L Oxyhemoglobin Sodium Potassium Chloride Carbon Dioxide BUN Creatinine Glucose POC Glucose 220 H 194 H Calcium Phosphorus Magnesium Iron TIBC Ferritin Total Bilirubin AST ALT Alkaline Phosphatase Total Creatine Kinase Troponin T C-Reactive Protein Total Protein Albumin Triglycerides HDL Cholesterol Miscellaneous Test Crossmatch 09/09/17 09/09/17 09/09/17 00:24 03:37 03:37 WBC 33.5 H RBC 2.36 L Hgb 6.7 L Hct 20.9 L MCV MCH RDW 22.7 H Plt Count Lymph % (Auto) [place] % (Auto) [place] # Seg Neutrophils % Seg Neuts % (Manual) Lymphocytes % (Manual) Monocytes % (Manual) Nucleated RBC % Seg Neutrophils # Seg Neutrophils # Man Lymphocytes # (Manual) Monocytes # (Manual) Eosinophils # (Manual) Basophils # (Manual) PT INR POC ABG pH ABG pH POC ABG pCO2 POC ABG pO2 ABG pO2 ABG O2 Saturation ABG Base Excess ABG Hemoglobin Oxyhemoglobin Sodium 132 L Potassium Chloride 91.6 L Carbon Dioxide 21 L BUN 101 H Creatinine 2.6 H Glucose 156 H POC Glucose 182 H Calcium 8.3 L Phosphorus 5.90 H Magnesium 2.60 H Iron TIBC Ferritin Total Bilirubin AST ALT Alkaline Phosphatase Total Creatine Kinase Troponin T C-Reactive Protein Total Protein Albumin Triglycerides HDL Cholesterol Miscellaneous Test Crossmatch 09/09/17 09/09/17 09/09/17 05:29 12:03 18:05 WBC RBC Hgb Hct MCV MCH RDW Plt Count Lymph % (Auto) [place] % (Auto) [place] # Seg Neutrophils % Seg Neuts % (Manual) Lymphocytes % (Manual) Monocytes % (Manual) Nucleated RBC % Seg Neutrophils # Seg Neutrophils # Man Lymphocytes # (Manual) Monocytes # (Manual) Eosinophils # (Manual) Basophils # (Manual) PT INR POC ABG pH ABG pH POC ABG pCO2 POC ABG pO2 ABG pO2 ABG O2 Saturation ABG Base Excess ABG Hemoglobin Oxyhemoglobin Sodium Potassium Chloride Carbon Dioxide BUN Creatinine Glucose POC Glucose 168 H 143 H 173 H Calcium Phosphorus Magnesium Iron TIBC Ferritin Total Bilirubin AST ALT Alkaline Phosphatase Total Creatine Kinase Troponin T C-Reactive Protein Total Protein Albumin Triglycerides HDL Cholesterol Miscellaneous Test Crossmatch 09/09/17 09/09/17 09/10/17 23:30 Unknown 05:04 WBC RBC Hgb Hct MCV MCH RDW Plt Count Lymph % (Auto) [place] % (Auto) [place] # Seg Neutrophils % Seg Neuts % (Manual) Lymphocytes % (Manual) Monocytes % (Manual) Nucleated RBC % Seg Neutrophils # Seg Neutrophils # Man Lymphocytes # (Manual) Monocytes # (Manual) Eosinophils # (Manual) Basophils # (Manual) PT INR POC ABG pH ABG pH 7.323 L POC ABG pCO2 POC ABG pO2 ABG pO2 94.1 H ABG O2 Saturation ABG Base Excess -4.8 L ABG Hemoglobin 8.0 L Oxyhemoglobin 94.9 L Sodium Potassium Chloride Carbon Dioxide BUN Creatinine Glucose POC Glucose 212 H 155 H Calcium Phosphorus Magnesium Iron TIBC Ferritin Total Bilirubin AST ALT Alkaline Phosphatase Total Creatine Kinase Troponin T C-Reactive Protein Total Protein Albumin Triglycerides HDL Cholesterol Miscellaneous Test Crossmatch 09/10/17 09/10/17 09/10/17 07:00 09:55 12:22 WBC 24.7 H RBC 2.62 L Hgb 7.5 L Hct 22.5 L MCV MCH RDW 20.8 H Plt Count Lymph % (Auto) [place] % (Auto) [place] # Seg Neutrophils % Seg Neuts % (Manual) Lymphocytes % (Manual) Monocytes % (Manual) Nucleated RBC % Seg Neutrophils # Seg Neutrophils # Man Lymphocytes # (Manual) Monocytes # (Manual) Eosinophils # (Manual) Basophils # (Manual) PT INR POC ABG pH ABG pH POC ABG pCO2 POC ABG pO2 ABG pO2 ABG O2 Saturation ABG Base Excess ABG Hemoglobin Oxyhemoglobin Sodium Potassium Chloride 97.9 L Carbon Dioxide BUN 78 H Creatinine 2.0 H Glucose 126 H POC Glucose 183 H Calcium 8.2 L Phosphorus Magnesium Iron TIBC Ferritin Total Bilirubin AST ALT Alkaline Phosphatase Total Creatine Kinase Troponin T C-Reactive Protein Total Protein Albumin Triglycerides HDL Cholesterol Miscellaneous Test Crossmatch 09/11/17 09/11/17 09/11/17 00:08 03:50 05:28 WBC 21.6 H RBC 2.52 L Hgb 7.4 L Hct 22.2 L MCV MCH RDW 21.5 H Plt Count Lymph % (Auto) [place] % (Auto) [place] # Seg Neutrophils % Seg Neuts % (Manual) 92.0 H Lymphocytes % (Manual) 3.0 L Monocytes % (Manual) Nucleated RBC % Seg Neutrophils # Seg Neutrophils # Man 19.9 H Lymphocytes # (Manual) 0.6 L Monocytes # (Manual) Eosinophils # (Manual) Basophils # (Manual) PT INR POC ABG pH ABG pH POC ABG pCO2 POC ABG pO2 ABG pO2 ABG O2 Saturation ABG Base Excess ABG Hemoglobin Oxyhemoglobin Sodium Potassium Chloride Carbon Dioxide BUN Creatinine Glucose POC Glucose 213 H 181 H Calcium Phosphorus Magnesium Iron TIBC Ferritin Total Bilirubin AST ALT Alkaline Phosphatase Total Creatine Kinase Troponin T C-Reactive Protein Total Protein Albumin Triglycerides HDL Cholesterol Miscellaneous Test Crossmatch 09/11/17 09/11/17 09/11/17 11:55 17:56 23:12 WBC RBC Hgb Hct MCV MCH RDW Plt Count Lymph % (Auto) [place] % (Auto) [place] # Seg Neutrophils % Seg Neuts % (Manual) Lymphocytes % (Manual) Monocytes % (Manual) Nucleated RBC % Seg Neutrophils # Seg Neutrophils # Man Lymphocytes # (Manual) Monocytes # (Manual) Eosinophils # (Manual) Basophils # (Manual) PT INR POC ABG pH ABG pH POC ABG pCO2 POC ABG pO2 ABG pO2 ABG O2 Saturation ABG Base Excess ABG Hemoglobin Oxyhemoglobin Sodium Potassium Chloride Carbon Dioxide 21 L BUN 80 H Creatinine 2.1 H Glucose 170 H POC Glucose 277 H 206 H Calcium 8.0 L Phosphorus Magnesium Iron TIBC Ferritin Total Bilirubin AST ALT Alkaline Phosphatase Total Creatine Kinase Troponin T C-Reactive Protein Total Protein Albumin Triglycerides HDL Cholesterol Miscellaneous Test Crossmatch 09/11/17 09/12/17 09/12/17 23:36 05:25 05:25 WBC 17.4 H RBC 2.29 L Hgb 6.7 L Hct 20.4 L MCV MCH RDW 21.2 H Plt Count Lymph % (Auto) [place] % (Auto) [place] # Seg Neutrophils % Seg Neuts % (Manual) 79.0 H Lymphocytes % (Manual) 5.0 L Monocytes % (Manual) Nucleated RBC % 1.0 H Seg Neutrophils # Seg Neutrophils # Man 13.7 H Lymphocytes # (Manual) 0.9 L Monocytes # (Manual) 1.2 H Eosinophils # (Manual) Basophils # (Manual) PT INR POC ABG pH ABG pH POC ABG pCO2 POC ABG pO2 ABG pO2 ABG O2 Saturation ABG Base Excess ABG Hemoglobin Oxyhemoglobin Sodium Potassium Chloride Carbon Dioxide BUN Creatinine Glucose POC Glucose 190 H Calcium Phosphorus Magnesium Iron 22 L TIBC 81 L Ferritin Total Bilirubin AST ALT Alkaline Phosphatase Total Creatine Kinase Troponin T C-Reactive Protein Total Protein Albumin Triglycerides HDL Cholesterol Miscellaneous Test Crossmatch 09/12/17 09/12/17 09/12/17 05:25 05:36 09:14 WBC RBC Hgb Hct MCV MCH RDW Plt Count Lymph % (Auto) [place] % (Auto) [place] # Seg Neutrophils % Seg Neuts % (Manual) Lymphocytes % (Manual) Monocytes % (Manual) Nucleated RBC % Seg Neutrophils # Seg Neutrophils # Man Lymphocytes # (Manual) Monocytes # (Manual) Eosinophils # (Manual) Basophils # (Manual) PT INR POC ABG pH ABG pH POC ABG pCO2 POC ABG pO2 ABG pO2 ABG O2 Saturation ABG Base Excess ABG Hemoglobin Oxyhemoglobin Sodium Potassium Chloride Carbon Dioxide BUN Creatinine Glucose POC Glucose 141 H Calcium Phosphorus Magnesium Iron TIBC Ferritin > 2000.0 H Total Bilirubin AST ALT Alkaline Phosphatase Total Creatine Kinase Troponin T C-Reactive Protein Total Protein Albumin Triglycerides HDL Cholesterol Miscellaneous Test Crossmatch See Detail 09/12/17 09/12/17 09/12/17 11:18 15:22 17:18 WBC RBC Hgb 8.5 L Hct 25.4 L MCV MCH RDW Plt Count Lymph % (Auto) [place] % (Auto) [place] # Seg Neutrophils % Seg Neuts % (Manual) Lymphocytes % (Manual) Monocytes % (Manual) Nucleated RBC % Seg Neutrophils # Seg Neutrophils # Man Lymphocytes # (Manual) Monocytes # (Manual) Eosinophils # (Manual) Basophils # (Manual) PT INR POC ABG pH ABG pH POC ABG pCO2 POC ABG pO2 ABG pO2 ABG O2 Saturation ABG Base Excess ABG Hemoglobin Oxyhemoglobin Sodium Potassium Chloride Carbon Dioxide BUN Creatinine Glucose POC Glucose 262 H 193 H Calcium Phosphorus Magnesium Iron TIBC Ferritin Total Bilirubin AST ALT Alkaline Phosphatase Total Creatine Kinase Troponin T C-Reactive Protein Total Protein Albumin Triglycerides HDL Cholesterol Miscellaneous Test Crossmatch 09/13/17 09/13/17 09/13/17 00:05 06:25 11:36 WBC RBC Hgb Hct MCV MCH RDW Plt Count Lymph % (Auto) [place] % (Auto) [place] # Seg Neutrophils % Seg Neuts % (Manual) Lymphocytes % (Manual) Monocytes % (Manual) Nucleated RBC % Seg Neutrophils # Seg Neutrophils # Man Lymphocytes # (Manual) Monocytes # (Manual) Eosinophils # (Manual) Basophils # (Manual) PT INR POC ABG pH 7.347 L ABG pH POC ABG pCO2 34.3 L POC ABG pO2 134 H ABG pO2 ABG O2 Saturation ABG Base Excess ABG Hemoglobin Oxyhemoglobin Sodium Potassium Chloride Carbon Dioxide BUN Creatinine Glucose POC Glucose 235 H 286 H Calcium Phosphorus Magnesium Iron TIBC Ferritin Total Bilirubin AST ALT Alkaline Phosphatase Total Creatine Kinase Troponin T C-Reactive Protein Total Protein Albumin Triglycerides HDL Cholesterol Miscellaneous Test Crossmatch 09/13/17 09/13/17 09/13/17 11:56 17:25 23:18 WBC RBC Hgb Hct MCV MCH RDW Plt Count Lymph % (Auto) [place] % (Auto) [place] # Seg Neutrophils % Seg Neuts % (Manual) Lymphocytes % (Manual) Monocytes % (Manual) Nucleated RBC % Seg Neutrophils # Seg Neutrophils # Man Lymphocytes # (Manual) Monocytes # (Manual) Eosinophils # (Manual) Basophils # (Manual) PT INR POC ABG pH ABG pH POC ABG pCO2 POC ABG pO2 ABG pO2 ABG O2 Saturation ABG Base Excess ABG Hemoglobin Oxyhemoglobin Sodium Potassium Chloride Carbon Dioxide BUN Creatinine Glucose POC Glucose 318 H 278 H 230 H Calcium Phosphorus Magnesium Iron TIBC Ferritin Total Bilirubin AST ALT Alkaline Phosphatase Total Creatine Kinase Troponin T C-Reactive Protein Total Protein Albumin Triglycerides HDL Cholesterol Miscellaneous Test Crossmatch 09/13/17 09/13/17 09/13/17 Unknown Unknown Unknown WBC 15.6 H RBC 2.72 L Hgb 8.1 L Hct 23.9 L MCV MCH RDW 19.5 H Plt Count 137 L Lymph % (Auto) [place] % (Auto) [place] # Seg Neutrophils % Seg Neuts % (Manual) 73.0 H Lymphocytes % (Manual) 3.0 L Monocytes % (Manual) 19.0 H Nucleated RBC % 2.0 H Seg Neutrophils # Seg Neutrophils # Man 11.4 H Lymphocytes # (Manual) 0.5 L Monocytes # (Manual) 3.0 H Eosinophils # (Manual) Basophils # (Manual) PT INR POC ABG pH ABG pH POC ABG pCO2 POC ABG pO2 ABG pO2 ABG O2 Saturation ABG Base Excess ABG Hemoglobin Oxyhemoglobin Sodium Potassium Chloride Carbon Dioxide 19 L BUN 103 H Creatinine 2.6 H Glucose 173 H POC Glucose Calcium Phosphorus Magnesium Iron TIBC Ferritin Total Bilirubin AST ALT Alkaline Phosphatase Total Creatine Kinase Troponin T C-Reactive Protein Total Protein Albumin < 0.2 L Triglycerides HDL Cholesterol Miscellaneous Test Crossmatch 09/14/17 09/14/17 09/14/17 03:15 03:15 05:16 WBC 12.5 H RBC 2.55 L Hgb 7.6 L Hct 22.5 L MCV MCH RDW 19.8 H Plt Count 139 L Lymph % (Auto) [place] % (Auto) [place] # Seg Neutrophils % Seg Neuts % (Manual) Lymphocytes % (Manual) Monocytes % (Manual) Nucleated RBC % Seg Neutrophils # Seg Neutrophils # Man Lymphocytes # (Manual) Monocytes # (Manual) Eosinophils # (Manual) Basophils # (Manual) PT INR POC ABG pH ABG pH POC ABG pCO2 POC ABG pO2 ABG pO2 ABG O2 Saturation ABG Base Excess ABG Hemoglobin Oxyhemoglobin Sodium Potassium Chloride Carbon Dioxide BUN 75 H Creatinine 2.1 H Glucose 217 H POC Glucose 283 H Calcium Phosphorus 2.20 L D Magnesium Iron TIBC Ferritin Total Bilirubin AST ALT Alkaline Phosphatase Total Creatine Kinase Troponin T C-Reactive Protein Total Protein Albumin Triglycerides HDL Cholesterol Miscellaneous Test Crossmatch 09/14/17 09/14/17 09/15/17 12:11 17:47 00:03 WBC RBC Hgb Hct MCV MCH RDW Plt Count Lymph % (Auto) [place] % (Auto) [place] # Seg Neutrophils % Seg Neuts % (Manual) Lymphocytes % (Manual) Monocytes % (Manual) Nucleated RBC % Seg Neutrophils # Seg Neutrophils # Man Lymphocytes # (Manual) Monocytes # (Manual) Eosinophils # (Manual) Basophils # (Manual) PT INR POC ABG pH ABG pH POC ABG pCO2 POC ABG pO2 ABG pO2 ABG O2 Saturation ABG Base Excess ABG Hemoglobin Oxyhemoglobin Sodium Potassium Chloride Carbon Dioxide BUN Creatinine Glucose POC Glucose 251 H 289 H 229 H Calcium Phosphorus Magnesium Iron TIBC Ferritin Total Bilirubin AST ALT Alkaline Phosphatase Total Creatine Kinase Troponin T C-Reactive Protein Total Protein Albumin Triglycerides HDL Cholesterol Miscellaneous Test Crossmatch 09/15/17 09/15/17 09/15/17 05:00 05:00 05:30 WBC 11.7 H RBC 2.50 L Hgb 7.4 L Hct 22.7 L MCV MCH RDW 20.5 H Plt Count Lymph % (Auto) [place] % (Auto) [place] # Seg Neutrophils % Seg Neuts % (Manual) Lymphocytes % (Manual) 11.0 L Monocytes % (Manual) 11.0 H Nucleated RBC % Seg Neutrophils # Seg Neutrophils # Man Lymphocytes # (Manual) Monocytes # (Manual) 1.3 H Eosinophils # (Manual) Basophils # (Manual) PT INR POC ABG pH ABG pH POC ABG pCO2 POC ABG pO2 ABG pO2 ABG O2 Saturation ABG Base Excess ABG Hemoglobin Oxyhemoglobin Sodium Potassium Chloride 97.0 L Carbon Dioxide 21 L BUN 94 H Creatinine 2.4 H Glucose 194 H POC Glucose 225 H Calcium Phosphorus Magnesium Iron TIBC Ferritin Total Bilirubin AST ALT Alkaline Phosphatase Total Creatine Kinase Troponin T C-Reactive Protein Total Protein Albumin Triglycerides HDL Cholesterol Miscellaneous Test Crossmatch 09/15/17 09/15/17 09/15/17 07:48 11:38 12:45 WBC RBC 1.93 L Hgb 5.7 L* Hct 17.1 L* MCV MCH RDW 20.2 H Plt Count 125 L Lymph % (Auto) [place] % (Auto) [place] # Seg Neutrophils % Seg Neuts % (Manual) 79.0 H Lymphocytes % (Manual) 8.0 L Monocytes % (Manual) Nucleated RBC % Seg Neutrophils # Seg Neutrophils # Man Lymphocytes # (Manual) 0.8 L Monocytes # (Manual) Eosinophils # (Manual) Basophils # (Manual) PT INR POC ABG pH ABG pH POC ABG pCO2 POC ABG pO2 ABG pO2 ABG O2 Saturation ABG Base Excess ABG Hemoglobin Oxyhemoglobin Sodium Potassium Chloride Carbon Dioxide BUN Creatinine Glucose POC Glucose 245 H 253 H Calcium Phosphorus Magnesium Iron TIBC Ferritin Total Bilirubin AST ALT Alkaline Phosphatase Total Creatine Kinase Troponin T C-Reactive Protein Total Protein Albumin Triglycerides HDL Cholesterol Miscellaneous Test Crossmatch 09/15/17 09/15/17 09/15/17 12:45 12:45 22:25 WBC 19.6 H RBC 3.32 L Hgb 10.0 L D Hct 29.3 L D MCV MCH RDW 17.0 H Plt Count 123 L Lymph % (Auto) [place] % (Auto) [place] # Seg Neutrophils % Seg Neuts % (Manual) Lymphocytes % (Manual) 12.0 L Monocytes % (Manual) Nucleated RBC % 5.0 H Seg Neutrophils # Seg Neutrophils # Man 11.0 H Lymphocytes # (Manual) Monocytes # (Manual) 1.2 H Eosinophils # (Manual) Basophils # (Manual) PT 15.4 H INR 1.16 H POC ABG pH ABG pH POC ABG pCO2 POC ABG pO2 ABG pO2 ABG O2 Saturation ABG Base Excess ABG Hemoglobin Oxyhemoglobin Sodium Potassium Chloride Carbon Dioxide BUN Creatinine Glucose POC Glucose Calcium Phosphorus Magnesium Iron TIBC Ferritin Total Bilirubin AST ALT Alkaline Phosphatase Total Creatine Kinase Troponin T C-Reactive Protein Total Protein Albumin Triglycerides HDL Cholesterol Miscellaneous Test Crossmatch See Detail 09/15/17 09/15/17 09/16/17 22:25 23:38 01:26 WBC RBC Hgb Hct MCV MCH RDW Plt Count Lymph % (Auto) [place] % (Auto) [place] # Seg Neutrophils % Seg Neuts % (Manual) Lymphocytes % (Manual) Monocytes % (Manual) Nucleated RBC % Seg Neutrophils # Seg Neutrophils # Man Lymphocytes # (Manual) Monocytes # (Manual) Eosinophils # (Manual) Basophils # (Manual) PT INR POC ABG pH ABG pH POC ABG pCO2 POC ABG pO2 ABG pO2 ABG O2 Saturation ABG Base Excess ABG Hemoglobin Oxyhemoglobin Sodium Potassium Chloride Carbon Dioxide 17 L BUN 100 H Creatinine 2.6 H Glucose POC Glucose 58 L 132 H Calcium 8.3 L Phosphorus Magnesium 1.60 L Iron TIBC Ferritin Total Bilirubin 2.80 H AST 118 H ALT Alkaline Phosphatase 316 H Total Creatine Kinase Troponin T C-Reactive Protein Total Protein 4.0 L Albumin 1.8 L Triglycerides HDL Cholesterol Miscellaneous Test Crossmatch 09/16/17 09/16/17 09/16/17 05:30 05:30 05:54 WBC 24.6 H RBC 3.22 L Hgb 9.8 L Hct 28.6 L MCV MCH RDW 17.4 H Plt Count 127 L Lymph % (Auto) [place] % (Auto) [place] # Seg Neutrophils % Seg Neuts % (Manual) Lymphocytes % (Manual) Monocytes % (Manual) Nucleated RBC % Seg Neutrophils # Seg Neutrophils # Man Lymphocytes # (Manual) Monocytes # (Manual) Eosinophils # (Manual) Basophils # (Manual) PT INR POC ABG pH ABG pH POC ABG pCO2 POC ABG pO2 ABG pO2 ABG O2 Saturation ABG Base Excess ABG Hemoglobin Oxyhemoglobin Sodium Potassium Chloride Carbon Dioxide 18 L BUN 109 H Creatinine 2.5 H Glucose 140 H POC Glucose 154 H Calcium Phosphorus 4.80 H Magnesium Iron TIBC Ferritin Total Bilirubin 2.40 H AST 90 H ALT Alkaline Phosphatase 298 H Total Creatine Kinase 20 L Troponin T C-Reactive Protein Total Protein 4.1 L Albumin 1.8 L Triglycerides HDL Cholesterol Miscellaneous Test Crossmatch 09/16/17 09/16/17 09/16/17 11:49 17:04 23:18 WBC RBC Hgb Hct MCV MCH RDW Plt Count Lymph % (Auto) [place] % (Auto) [place] # Seg Neutrophils % Seg Neuts % (Manual) Lymphocytes % (Manual) Monocytes % (Manual) Nucleated RBC % Seg Neutrophils # Seg Neutrophils # Man Lymphocytes # (Manual) Monocytes # (Manual) Eosinophils # (Manual) Basophils # (Manual) PT INR POC ABG pH ABG pH POC ABG pCO2 POC ABG pO2 ABG pO2 ABG O2 Saturation ABG Base Excess ABG Hemoglobin Oxyhemoglobin Sodium Potassium Chloride Carbon Dioxide BUN Creatinine Glucose POC Glucose 167 H 156 H 162 H Calcium Phosphorus Magnesium Iron TIBC Ferritin Total Bilirubin AST ALT Alkaline Phosphatase Total Creatine Kinase Troponin T C-Reactive Protein Total Protein Albumin Triglycerides HDL Cholesterol Miscellaneous Test Crossmatch 09/17/17 09/17/17 09/17/17 05:27 06:10 06:10 WBC 34.6 H RBC 2.75 L Hgb 8.4 L Hct 24.8 L MCV MCH RDW 18.3 H Plt Count Lymph % (Auto) [place] % (Auto) [place] # Seg Neutrophils % Seg Neuts % (Manual) 77.0 H Lymphocytes % (Manual) 5.0 L Monocytes % (Manual) Nucleated RBC % 2.0 H Seg Neutrophils # Seg Neutrophils # Man 26.6 H Lymphocytes # (Manual) Monocytes # (Manual) 2.4 H Eosinophils # (Manual) Basophils # (Manual) PT INR POC ABG pH ABG pH POC ABG pCO2 POC ABG pO2 ABG pO2 ABG O2 Saturation ABG Base Excess ABG Hemoglobin Oxyhemoglobin Sodium Potassium Chloride Carbon Dioxide BUN 82 H Creatinine 2.1 H Glucose 252 H POC Glucose 243 H Calcium 8.3 L Phosphorus Magnesium Iron TIBC Ferritin Total Bilirubin AST ALT Alkaline Phosphatase Total Creatine Kinase Troponin T C-Reactive Protein Total Protein Albumin Triglycerides HDL Cholesterol Miscellaneous Test Crossmatch 09/17/17 09/17/17 09/18/17 11:42 17:12 00:08 WBC RBC Hgb Hct MCV MCH RDW Plt Count Lymph % (Auto) [place] % (Auto) [place] # Seg Neutrophils % Seg Neuts % (Manual) Lymphocytes % (Manual) Monocytes % (Manual) Nucleated RBC % Seg Neutrophils # Seg Neutrophils # Man Lymphocytes # (Manual) Monocytes # (Manual) Eosinophils # (Manual) Basophils # (Manual) PT INR POC ABG pH ABG pH POC ABG pCO2 POC ABG pO2 ABG pO2 ABG O2 Saturation ABG Base Excess ABG Hemoglobin Oxyhemoglobin Sodium Potassium Chloride Carbon Dioxide BUN Creatinine Glucose POC Glucose 232 H 309 H 275 H Calcium Phosphorus Magnesium Iron TIBC Ferritin Total Bilirubin AST ALT Alkaline Phosphatase Total Creatine Kinase Troponin T C-Reactive Protein Total Protein Albumin Triglycerides HDL Cholesterol Miscellaneous Test Crossmatch 09/18/17 09/18/17 09/18/17 05:10 05:10 05:23 WBC 24.4 H RBC 2.57 L Hgb 7.8 L Hct 23.2 L MCV MCH RDW 19.5 H Plt Count Lymph % (Auto) [place] % (Auto) [place] # Seg Neutrophils % Seg Neuts % (Manual) 78.0 H Lymphocytes % (Manual) 6.0 L Monocytes % (Manual) Nucleated RBC % 2.0 H Seg Neutrophils # Seg Neutrophils # Man 19.0 H Lymphocytes # (Manual) Monocytes # (Manual) Eosinophils # (Manual) Basophils # (Manual) PT INR POC ABG pH ABG pH POC ABG pCO2 POC ABG pO2 ABG pO2 ABG O2 Saturation ABG Base Excess ABG Hemoglobin Oxyhemoglobin Sodium Potassium Chloride Carbon Dioxide BUN 103 H Creatinine 2.8 H Glucose 173 H POC Glucose 224 H Calcium Phosphorus Magnesium Iron TIBC Ferritin Total Bilirubin AST ALT Alkaline Phosphatase Total Creatine Kinase Troponin T C-Reactive Protein Total Protein Albumin Triglycerides HDL Cholesterol Miscellaneous Test Crossmatch 09/18/17 09/18/17 09/18/17 13:59 18:35 23:19 WBC RBC Hgb Hct MCV MCH RDW Plt Count Lymph % (Auto) [place] % (Auto) [place] # Seg Neutrophils % Seg Neuts % (Manual) Lymphocytes % (Manual) Monocytes % (Manual) Nucleated RBC % Seg Neutrophils # Seg Neutrophils # Man Lymphocytes # (Manual) Monocytes # (Manual) Eosinophils # (Manual) Basophils # (Manual) PT INR POC ABG pH ABG pH POC ABG pCO2 POC ABG pO2 ABG pO2 ABG O2 Saturation ABG Base Excess ABG Hemoglobin Oxyhemoglobin Sodium Potassium Chloride Carbon Dioxide BUN Creatinine Glucose POC Glucose 268 H 220 H 188 H Calcium Phosphorus Magnesium Iron TIBC Ferritin Total Bilirubin AST ALT Alkaline Phosphatase Total Creatine Kinase Troponin T C-Reactive Protein Total Protein Albumin Triglycerides HDL Cholesterol Miscellaneous Test Crossmatch 09/19/17 09/19/17 09/19/17 05:45 06:00 11:41 WBC 17.6 H RBC 2.57 L Hgb 7.9 L Hct 23.2 L MCV MCH RDW 19.0 H Plt Count Lymph % (Auto) [place] % (Auto) [place] # Seg Neutrophils % Seg Neuts % (Manual) Lymphocytes % (Manual) 9.0 L Monocytes % (Manual) Nucleated RBC % Seg Neutrophils # Seg Neutrophils # Man 11.4 H Lymphocytes # (Manual) Monocytes # (Manual) 0.9 H Eosinophils # (Manual) Basophils # (Manual) PT INR POC ABG pH ABG pH POC ABG pCO2 POC ABG pO2 ABG pO2 ABG O2 Saturation ABG Base Excess ABG Hemoglobin Oxyhemoglobin Sodium Potassium Chloride Carbon Dioxide BUN Creatinine Glucose POC Glucose 178 H 126 H Calcium Phosphorus Magnesium Iron TIBC Ferritin Total Bilirubin AST ALT Alkaline Phosphatase Total Creatine Kinase Troponin T C-Reactive Protein Total Protein Albumin Triglycerides HDL Cholesterol Miscellaneous Test Crossmatch 09/19/17 09/19/17 09/20/17 17:08 23:46 04:46 WBC RBC Hgb Hct MCV MCH RDW Plt Count Lymph % (Auto) [place] % (Auto) [place] # Seg Neutrophils % Seg Neuts % (Manual) Lymphocytes % (Manual) Monocytes % (Manual) Nucleated RBC % Seg Neutrophils # Seg Neutrophils # Man Lymphocytes # (Manual) Monocytes # (Manual) Eosinophils # (Manual) Basophils # (Manual) PT INR POC ABG pH ABG pH POC ABG pCO2 POC ABG pO2 ABG pO2 ABG O2 Saturation ABG Base Excess ABG Hemoglobin Oxyhemoglobin Sodium Potassium 5.2 H D Chloride 97.4 L Carbon Dioxide 20 L BUN 98 H Creatinine 2.4 H Glucose 187 H POC Glucose 263 H 161 H Calcium Phosphorus Magnesium Iron TIBC Ferritin Total Bilirubin AST ALT Alkaline Phosphatase Total Creatine Kinase Troponin T C-Reactive Protein Total Protein Albumin Triglycerides HDL Cholesterol Miscellaneous Test Crossmatch 09/20/17 09/20/17 09/20/17 05:38 11:36 11:41 WBC 24.5 H RBC 2.84 L Hgb 8.2 L Hct 26.2 L MCV MCH RDW 20.0 H Plt Count 470 H Lymph % (Auto) [place] % (Auto) [place] # Seg Neutrophils % Seg Neuts % (Manual) Lymphocytes % (Manual) Monocytes % (Manual) Nucleated RBC % Seg Neutrophils # Seg Neutrophils # Man Lymphocytes # (Manual) Monocytes # (Manual) Eosinophils # (Manual) Basophils # (Manual) PT INR POC ABG pH ABG pH POC ABG pCO2 POC ABG pO2 ABG pO2 ABG O2 Saturation ABG Base Excess ABG Hemoglobin Oxyhemoglobin Sodium Potassium Chloride Carbon Dioxide BUN Creatinine Glucose POC Glucose 215 H 220 H Calcium Phosphorus Magnesium Iron TIBC Ferritin Total Bilirubin AST ALT Alkaline Phosphatase Total Creatine Kinase Troponin T C-Reactive Protein Total Protein Albumin Triglycerides HDL Cholesterol Miscellaneous Test Crossmatch 10/09/21/17 09/21/17 17:45 00:51 04:00 WBC RBC Hgb Hct MCV MCH RDW Plt Count Lymph % (Auto) [place] % (Auto) [place] # Seg Neutrophils % Seg Neuts % (Manual) Lymphocytes % (Manual) Monocytes % (Manual) Nucleated RBC % Seg Neutrophils # Seg Neutrophils # Man Lymphocytes # (Manual) Monocytes # (Manual) Eosinophils # (Manual) Basophils # (Manual) PT INR POC ABG pH ABG pH POC ABG pCO2 POC ABG pO2 ABG pO2 ABG O2 Saturation ABG Base Excess ABG Hemoglobin Oxyhemoglobin Sodium Potassium 3.2 L D Chloride 96.4 L Carbon Dioxide BUN 63 H Creatinine 1.8 H Glucose 204 H POC Glucose 122 H 137 H Calcium 8.3 L Phosphorus 2.10 L D Magnesium 1.50 L Iron TIBC Ferritin Total Bilirubin AST ALT Alkaline Phosphatase Total Creatine Kinase Troponin T C-Reactive Protein Total Protein Albumin Triglycerides HDL Cholesterol Miscellaneous Test Crossmatch 09/21/17 05:45 WBC RBC Hgb Hct MCV MCH RDW Plt Count Lymph % (Auto) [place] % (Auto) [place] # Seg Neutrophils % Seg Neuts % (Manual) Lymphocytes % (Manual) Monocytes % (Manual) Nucleated RBC % Seg Neutrophils # Seg Neutrophils # Man Lymphocytes # (Manual) Monocytes # (Manual) Eosinophils # (Manual) Basophils # (Manual) PT INR POC ABG pH ABG pH POC ABG pCO2 POC ABG pO2 ABG pO2 ABG O2 Saturation ABG Base Excess ABG Hemoglobin Oxyhemoglobin Sodium Potassium Chloride Carbon Dioxide BUN Creatinine Glucose POC Glucose 243 H Calcium Phosphorus Magnesium Iron TIBC Ferritin Total Bilirubin AST ALT Alkaline Phosphatase Total Creatine Kinase Troponin T C-Reactive Protein Total Protein Albumin Triglycerides HDL Cholesterol Miscellaneous Test Crossmatch
--- NOTE | 2017-09-21 08:42 | Progress Note ---
Assessment and Plan - Patient Problems (1) ESRD (end stage renal disease) on dialysis Current Visit: Yes Status: Acute Plan to address problem: Continue HD on MWF and Isolated UF on TTS as tolerated. UF today. Mostly patient is tolerating fluid removal with hemodialysis. Patient is on TPN. (2) Anemia Current Visit: No Status: Chronic Qualifiers: Anemia type: due to chronic kidney disease Iron deficiency anemia type: I Vitamin B12 deficiency anemia type: V Folate deficiency anemia type: F Bone marrow failure anemia type: B Hemolytic anemia type: H Other causes of anemia: O Chronic kidney disease stage: on chronic dialysis Qualified Code(s ): N18.6 - End stage renal disease; D63.1 - Anemia in chronic kidney disease; Z99.2 - Dependence on renal dialysis Plan to address problem: S/p multiple units of PRBC. Epogen on dialysis days. Unable to give IV Iron due to high Ferritin level. (3) Hypotension Current Visit: Yes Status: Chronic Qualifiers: Hypotension type: H Trimester: T Plan to address problem: On Levophed. (4) Volume overload Current Visit: Yes Status: Acute Qualifiers: Hypervolemia type: H Plan to address problem: UF as tolerated. (5) Leukocytosis Current Visit: Yes Status: Acute Qualifiers: Leukocytosis type: unspecified Qualified Code(s): D72.829 - Elevated white blood cell count, unspecified Plan to address problem: Monitor. (6) Acute respiratory failure with hypoxemia Current Visit: Yes Status: Acute Plan to address problem: On the vent. (7) Sepsis Current Visit: Yes Status: Acute Qualifiers: Sepsis type: S Subjective Date of service: 09/21/17 Principal diagnosis: respiratory failure, sepsis, shock rectal bleeding Interval history: Patient was seen and examined at the bedside. Remain on the vent. Objective - Vital Signs Vital signs: Vital Signs - 12hr 09/20/17 09/20/17 09/20/17 20:45 21:01 21:15 Temperature Pulse Rate 94 H 91 H 88 Respiratory 21 19 21 Rate Blood Pressure 111/51 120/50 113/47 O2 Sat by Pulse 100 100 99 Oximetry O2 Sat by Pulse Oximetry [ Assessment] 09/20/17 09/20/17 09/20/17 21:30 22:00 23:17 Temperature Pulse Rate 96 H 90 96 H Respiratory 16 Rate Blood Pressure 111/59 111/59 O2 Sat by Pulse 100 Oximetry O2 Sat by Pulse Oximetry [ Assessment] 09/20/17 09/20/17 09/20/17 23:22 23:30 23:45 Temperature Pulse Rate 103 H 104 H 118 H Respiratory 12 13 Rate Blood Pressure 100/39 100/39 111/59 O2 Sat by Pulse 100 Oximetry O2 Sat by Pulse Oximetry [ Assessment] 09/21/17 09/21/17 09/21/17 00:00 00:15 00:30 Temperature 98.3 F Pulse Rate 109 H 104 H 98 H Respiratory 25 H 12 20 Rate Blood Pressure 108/48 115/66 125/57 O2 Sat by Pulse Oximetry O2 Sat by Pulse Oximetry [ Assessment] 09/21/17 09/21/17 09/21/17 00:45 01:01 01:15 Temperature Pulse Rate 106 H 95 H 96 H Respiratory 11 L 23 18 Rate Blood Pressure 126/65 133/50 108/47 O2 Sat by Pulse Oximetry O2 Sat by Pulse Oximetry [ Assessment] 09/21/17 09/21/17 09/21/17 01:30 01:45 02:00 Temperature Pulse Rate 91 H 88 90 Respiratory 18 18 18 Rate Blood Pressure 120/51 104/46 110/51 O2 Sat by Pulse Oximetry O2 Sat by Pulse Oximetry [ Assessment] 09/21/17 09/21/17 09/21/17 02:15 02:31 02:45 Temperature Pulse Rate 87 91 H 102 H Respiratory 18 18 20 Rate Blood Pressure 123/54 111/53 126/47 O2 Sat by Pulse Oximetry O2 Sat by Pulse Oximetry [ Assessment] 09/21/17 09/21/17 09/21/17 03:01 03:15 03:22 Temperature Pulse Rate 94 H 100 H Respiratory 17 21 Rate Blood Pressure 116/47 125/57 O2 Sat by Pulse Oximetry O2 Sat by Pulse 98 Oximetry [ Assessment] 09/21/17 09/21/17 09/21/17 03:23 03:31 03:45 Temperature Pulse Rate 109 H 99 H 108 H Respiratory 21 19 Rate Blood Pressure 125/57 137/50 134/48 O2 Sat by Pulse 100 Oximetry O2 Sat by Pulse Oximetry [ Assessment] 09/21/17 09/21/17 09/21/17 03:53 04:01 04:15 Temperature 99.1 F Pulse Rate 103 H 106 H Respiratory 20 20 Rate Blood Pressure 135/51 120/64 O2 Sat by Pulse Oximetry O2 Sat by Pulse Oximetry [ Assessment] 09/21/17 09/21/17 09/21/17 04:31 04:45 05:01 Temperature Pulse Rate 113 H 111 H 108 H Respiratory 22 18 19 Rate Blood Pressure 134/48 144/66 151/66 O2 Sat by Pulse 100 100 Oximetry O2 Sat by Pulse Oximetry [ Assessment] 09/21/17 09/21/17 05:15 05:31 Temperature Pulse Rate 97 H 114 H Respiratory 28 H 20 Rate Blood Pressure 151/66 148/66 O2 Sat by Pulse 100 100 Oximetry O2 Sat by Pulse Oximetry [ Assessment] - General Appearance General appearance: well-developed, appears stated age, obese, other (on the vent, right IJ temp catheter) EENT: ATNC, PERRL Neck: other (Trached) Respiratory: Present: Clear to Ascultation Cardiology: regular, S1S2, no murmurs Gastrointestinal: normoactive bowel sounds, obese, other (ostomy, MERVIN drain, dressing noted) Integumentary: no rash Neurologic: other (alert, non-verbal, not following any command) Musculoskeletal: other (2+ edema of both LEs noted) - Lab 09/20/17 11:41 09/21/17 04:00 Most recent lab results ABG pH 7.323 pH Units (7.350-7.450) L 09/09/17 Unknown ABG pCO2 41.1 mm Hg 09/09/17 Unknown ABG pO2 94.1 mm Hg (80.0-90.0) H 09/09/17 Unknown ABG HCO3 20.9 mmol/L (20.0-26.0) 09/09/17 Unknown ABG O2 Saturation 97.2 % (95.0-99.0) 09/09/17 Unknown Calcium 8.3 mg/dL (8.4-10.2) L 09/21/17 04:00 Phosphorus 2.10 mg/dL (2.5-4.5) L D 09/21/17 04:00 Magnesium 1.50 mg/dL (1.7-2.3) L 09/21/17 04:00
[2017-09-21 08:48] LABS: Hematocrit 22.8 % (30.3-42.9); Hemoglobin 7.7 gm/dl (10.1-14.3); Mean Corpuscular HGB Conc 34 % (30-34); Mean Corpuscular Hemoglobin 31 pg (28-32); Mean Corpuscular Volume 90 fl (79-97); Platelet Count 457 K/mm3 (140-440); Red Blood Count 2.52 M/mm3 (3.65-5.03); Red Cell Distribution Width 19.2 % (13.2-15.2)
[2017-09-21 08:49] LABS: White Blood Count 27.5 K/mm3 (4.5-11.0)
[2017-09-21] MEDS ORDERED: NACL 0.9% 500 ML 500 ML IV ONE (08:56)
[2017-09-21] MEDS ORDERED: NACL 0.9% 100 ML IV PRN (10:01)
[2017-09-21] MEDS ORDERED: NACL 0.9 (PRIMING MACHINE ONLY DIALYSIS) MC ONE ×2 (10:02→18:42)
--- NOTE | 2017-09-21 10:02 | Progress Note ---
Assessment and Plan 62 y.o. F s/p ex lap, transverse colon resection, colostomy creation, and s/p ex lap, abdominal wash out and abdominal wall closure after wound dehiscence 3 weeks s/p ex lap for gastric perforation and sbo. s/p transverse colon resection with ostomy resection for perforated colon: ostomy patent. Wound care nurse consulted for colostomy care. Monitor for leaking of stool in midline wound. -concerning coleman fluid draining from her inferior portion of incision. Abscess vs succus. CT showed fluid collection in pelvis but not a definite abscess. - IR agreed to reasses and perform the drainage on Saturday -Will reassess tomorrow- if the patient's condition worsens, she will go to the OR tomorrow. Monitor MERVIN output- becoming more serous sanginous. Monitor output-decreasing. Continue G tube to gravity. Outputs to be recorded on paper in room for accurate outputs. Levo discontinued this am s/p Antonieta placement - Levo was stopped today as BP improved. - ID following - merrem, mycamin, -Rec. wean steriods- goal for off steriods by this weekend. VDRF: s/p trach. Prev Gastric perf: Sealed. In light of recent surgery, keep G tube to gravity CKD- HD per renal Nutrition: TPN at 77,. DVT proph: scds GI: PPI. - Patient Problems (1) Peritonitis (acute) generalized Current Visit: Yes Status: Acute Subjective Narrative: Pt seen and examined at bedside. NIC overnight. Pt is non-verbal but open eyes spontaneously and doesnt follow commands. Pt responds by using her arms to push ago in pain when her abdomen is palpated. CT completed overnight did not show a leak, or fistula. NG tube x Colostomy liquid stool, + in bag. MERVIN drains- 80cc dark serosanguis fluid cc bilious Afebrile Objective Vital Signs - 12hr 09/20/17 09/20/17 09/20/17 23:17 23:22 23:30 Temperature Pulse Rate 96 H 103 H 104 H Respiratory 12 Rate Blood Pressure 111/59 100/39 100/39 O2 Sat by Pulse 100 Oximetry O2 Sat by Pulse Oximetry [ Assessment] 09/20/17 09/21/17 09/21/17 23:45 00:00 00:15 Temperature 98.3 F Pulse Rate 118 H 109 H 104 H Respiratory 13 25 H 12 Rate Blood Pressure 111/59 108/48 115/66 O2 Sat by Pulse Oximetry O2 Sat by Pulse Oximetry [ Assessment] 09/21/17 09/21/17 09/21/17 00:30 00:45 01:01 Temperature Pulse Rate 98 H 106 H 95 H Respiratory 20 11 L 23 Rate Blood Pressure 125/57 126/65 133/50 O2 Sat by Pulse Oximetry O2 Sat by Pulse Oximetry [ Assessment] 09/21/17 09/21/17 09/21/17 01:15 01:30 01:45 Temperature Pulse Rate 96 H 91 H 88 Respiratory 18 18 18 Rate Blood Pressure 108/47 120/51 104/46 O2 Sat by Pulse Oximetry O2 Sat by Pulse Oximetry [ Assessment] 09/21/17 09/21/17 09/21/17 02:00 02:15 02:31 Temperature Pulse Rate 90 87 91 H Respiratory 18 18 18 Rate Blood Pressure 110/51 123/54 111/53 O2 Sat by Pulse Oximetry O2 Sat by Pulse Oximetry [ Assessment] 09/21/17 09/21/17 09/21/17 02:45 03:01 03:15 Temperature Pulse Rate 102 H 94 H 100 H Respiratory 20 17 21 Rate Blood Pressure 126/47 116/47 125/57 O2 Sat by Pulse Oximetry O2 Sat by Pulse Oximetry [ Assessment] 09/21/17 09/21/17 09/21/17 03:22 03:23 03:31 Temperature Pulse Rate 109 H 99 H Respiratory 21 Rate Blood Pressure 125/57 137/50 O2 Sat by Pulse 100 Oximetry O2 Sat by Pulse 98 Oximetry [ Assessment] 09/21/17 09/21/17 09/21/17 03:45 03:53 04:01 Temperature 99.1 F Pulse Rate 108 H 103 H Respiratory 19 20 Rate Blood Pressure 134/48 135/51 O2 Sat by Pulse Oximetry O2 Sat by Pulse Oximetry [ Assessment] 09/21/17 09/21/17 09/21/17 04:15 04:31 04:45 Temperature Pulse Rate 106 H 113 H 111 H Respiratory 20 22 18 Rate Blood Pressure 120/64 134/48 144/66 O2 Sat by Pulse 100 Oximetry O2 Sat by Pulse Oximetry [ Assessment] 09/21/17 09/21/17 09/21/17 05:01 05:15 05:31 Temperature Pulse Rate 108 H 97 H 114 H Respiratory 19 28 H 20 Rate Blood Pressure 151/66 151/66 148/66 O2 Sat by Pulse 100 100 100 Oximetry O2 Sat by Pulse Oximetry [ Assessment] 09/21/17 08:00 Temperature 98.9 F Pulse Rate 101 H Respiratory Rate Blood Pressure 142/20 O2 Sat by Pulse 100 Oximetry O2 Sat by Pulse 100 Oximetry [ Assessment] - General physical appearance Narrative Exam: - General physical appearance no pain, chronically ill, obese - Neck other (trach in place) - Respiratory normal expansion, normal respiratory effort, other (vent) - Abdomen soft, other (obese, midline dressing removed. purulent coleman fluid, non foul smelling draining from inferior portion. Fascia feels intact. wound irrigated with NS. dryied. calcium alginate placed at surface of wound. colostomy small leak of stool into site of wound. irrigated. ostomy: violacious: edematous no retraction. liquid brown stool mixed with drk red. no air. ) - Integumentary no rash - Neurologic disoriented - Psychiatric other (responds to pain ) well developed, well nourished, no distress, chronically ill, obese - Labs 09/21/17 08:30 09/21/17 04:00 Diabetes panel 09/21/17 Range/Units 04:00 Sodium 140 (137-145) mmol/L Potassium 3.2 L D (3.6-5.0) mmol/L Chloride 96.4 L (98-107) mmol/L Carbon Dioxide 26 (22-30) mmol/L BUN 63 H (7-17) mg/dL Creatinine 1.8 H (0.7-1.2) mg/dL Glucose 204 H (65-100) mg/dL Calcium 8.3 L (8.4-10.2) mg/dL Calcium panel 09/21/17 Range/Units 04:00 Calcium 8.3 L (8.4-10.2) mg/dL Phosphorus 2.10 L D (2.5-4.5) mg/dL Pituitary panel 09/21/17 Range/Units 04:00 Sodium 140 (137-145) mmol/L Potassium 3.2 L D (3.6-5.0) mmol/L Chloride 96.4 L (98-107) mmol/L Carbon Dioxide 26 (22-30) mmol/L BUN 63 H (7-17) mg/dL Creatinine 1.8 H (0.7-1.2) mg/dL Glucose 204 H (65-100) mg/dL Calcium 8.3 L (8.4-10.2) mg/dL Adrenal panel 09/21/17 Range/Units 04:00 Sodium 140 (137-145) mmol/L Potassium 3.2 L D (3.6-5.0) mmol/L Chloride 96.4 L (98-107) mmol/L Carbon Dioxide 26 (22-30) mmol/L BUN 63 H (7-17) mg/dL Creatinine 1.8 H (0.7-1.2) mg/dL Glucose 204 H (65-100) mg/dL Calcium 8.3 L (8.4-10.2) mg/dL
[2017-09-21] MEDS: PROTONIX IV SCH (11:42)
[2017-09-21] MEDS: LEVEMIR SUB-Q SCH (11:43)
[2017-09-21] MEDS: MERREM 1,000 MG in NACL 0.9% 100 ML IV SCH (12:24)
--- NOTE | 2017-09-21 15:54 | Progress Note ---
Assessment and Plan Assessment and plan: 62 YO Female with MO, ESRD-PD (with PD cath in place )(Daily), HTN, OA, Ischemic Cardiomyopathy who was on milrinone, Chronic Pain who came to ED with lightheaded and syncope, she c/o abdomnal pain x 2 days, was found to have hypotension, septic shock and intra-abdominal abscess. Sepsis secondary to peritonitis, Intra abdominal abscess and Bowel obstruction - continue abx, -ID on board, Currently on Meropenem and Micafungin She is now status post colostomy. She continues to have large amounts of purulent drainage from her abdominal drains. she is planned for IR drainage of peritoneal fluid on Saturday - she has had the following procedures 09/15/17: Ex lap, transverse colectomy, R colostomy and abdominal wash out 08/31: Ex lap with abdominal wash out and closure 08/17: Ex lap with G tube placement, EGD, abdominal wash out and removal of PD Cath Acute hypoxic respiratory failure on MV > 96 hours continue ventilator, planned for tracheostomy, has failed extubation multiple times planned for LTAC Acute rectal bleeding with severe acute blood loss anemia -EGD showed small gastric ulcer -sp multiple transfusions -- GI consult appreciated - Patient had CTA of abdomen and pelvis no active bleeding, CT Abdomen repeated 09/06, no acute findings - transfuse to keep Hg above 8 given septic shock -, too unstable for C scope at this time -wean steroids GIB likely from bleeding from gastric perforation and surgical wound monitor Hg and transfuse to keep above 8 now improved ESRD -continue HD per renal per femoral HD cath -needs perm cath when improved Septic shock. - continue IV pressors continue abx, ID input appreciated Ulcerative esophagitis/small gastric ulcer on EGD continue PPI Severe Protein calorie malnutrition - Continue with TPN Sacral and lower extremity wound, POA - continue wound care NSVT resolved, likely due to levophed, wean as tolerated cardiology input appreciated --DVT prophylaxis; SCDs - D/C Heparin because of GI bleed Plan of care discussed with the patient's family at bedside Disposition - continue ICU care Prognosis: guarded The high probability of a clinically significant, sudden or life threatening deterioration of the [cv, pulmonary and GI] system(s) required my full and direct attention, intervention and personal management. The aggregate critical care time was [33] minutes. This time is in addition to time spent performing reported procedures but includes the following: [] Data Review and interpretation [] Patient assessment and monitoring of vital signs [] Documentation [] Medication orders and management History Interval history: She has had no more episodes of melena today. having copious amounts of purulent output in Abdominal drains Hospitalist Physical - Physical exam Narrative exam: General.: Obese HEENT: Moist mucous membranes, extraocular muscles intact, no lymphadenopathy Neck: supple Cardiac: S1-S2 heard Lungs: clear to auscultation bilaterally Abdomen: soft, bowel sounds normal, other (obese, soft, dressing not removed) Extremities: no edema clubbing or cyanosis Skin: no rash or lesions Neurologic: trached, obeys commands, arousable - Constitutional Vitals: Temp Pulse Resp BP Pulse Ox 98.5 F 104 H 22 131/85 100 09/21/17 12:00 09/21/17 13:31 09/21/17 13:31 09/21/17 13:31 09/21/17 13:31 Results - Labs CBC & Chem 7: 09/21/17 08:30 09/21/17 04:00 Labs: Laboratory Last Values WBC 27.5 K/mm3 (4.5-11.0) H 09/21/17 08:30 RBC 2.52 M/mm3 (3.65-5.03) L 09/21/17 08:30 Hgb 7.7 gm/dl (10.1-14.3) L 09/21/17 08:30 Hct 22.8 % (30.3-42.9) L 09/21/17 08:30 MCV 90 fl (79-97) 09/21/17 08:30 MCH 31 pg (28-32) 09/21/17 08:30 MCHC 34 % (30-34) 09/21/17 08:30 RDW 19.2 % (13.2-15.2) H 09/21/17 08:30 Plt Count 457 K/mm3 (140-440) H 09/21/17 08:30 Lymph % (Auto) Chief Clinical Dietitian 08/19/17 07:37 [place] % (Auto) Chief Clinical Dietitian 09/13/17 Unknown Eos % (Auto) Chief Clinical Dietitian 08/19/17 07:37 Baso % (Auto) Chief Clinical Dietitian 08/19/17 07:37 Lymph # Chief Clinical Dietitian 08/19/17 07:37 [place] # Chief Clinical Dietitian 08/19/17 07:37 Eos # Chief Clinical Dietitian 08/19/17 07:37 Baso # Chief Clinical Dietitian 08/19/17 07:37 Add Manual Diff Complete 09/19/17 06:00 Total Counted 100 09/19/17 06:00 Seg Neutrophils % Chief Clinical Dietitian 09/08/17 04:05 Seg Neuts % (Manual) 65.0 % (40.0-70.0) 09/19/17 06:00 Band Neutrophils % 13.0 % 09/19/17 06:00 Lymphocytes % (Manual) 9.0 % (13.4-35.0) L 09/19/17 06:00 Reactive Lymphs % (Man) 1.0 % 09/19/17 06:00 Monocytes % (Manual) 5.0 % (0.0-7.3) 09/19/17 06:00 Eosinophils % (Manual) 0 % (0.0-4.3) 09/19/17 06:00 Basophils % (Manual) 0 % (0.0-1.8) 09/19/17 06:00 Metamyelocytes % 5.0 % 09/19/17 06:00 Myelocytes % 2.0 % 09/19/17 06:00 Promyelocytes % 0 % 09/19/17 06:00 Blast Cells % 0 % 09/19/17 06:00 Nucleated RBC % Not Reportable 09/19/17 06:00 Seg Neutrophils # Chief Clinical Dietitian 08/19/17 07:37 Seg Neutrophils # Man 11.4 K/mm3 (1.8-7.7) H 09/19/17 06:00 Band Neutrophils # 2.3 K/mm3 09/19/17 06:00 Lymphocytes # (Manual) 1.6 K/mm3 (1.2-5.4) 09/19/17 06:00 Abs React Lymphs (Man) 0.2 K/mm3 09/19/17 06:00 Monocytes # (Manual) 0.9 K/mm3 (0.0-0.8) H 09/19/17 06:00 Eosinophils # (Manual) 0.0 K/mm3 (0.0-0.4) 09/19/17 06:00 Basophils # (Manual) 0.0 K/mm3 (0.0-0.1) 09/19/17 06:00 Metamyelocytes # 0.9 K/mm3 09/19/17 06:00 Myelocytes # 0.4 K/mm3 09/19/17 06:00 Promyelocytes # 0.0 K/mm3 09/19/17 06:00 Blast Cells # 0.0 K/mm3 09/19/17 06:00 Pathologist Review Not Reportable 08/30/17 05:20 WBC Morphology Not Reportable 09/19/17 06:00 Hypersegmented Neuts Not Reportable 09/19/17 06:00 Hyposegmented Neuts Not Reportable 09/19/17 06:00 Hypogranular Neuts Not Reportable 09/19/17 06:00 Smudge Cells Not Reportable 09/19/17 06:00 Toxic Granulation Not Reportable 09/19/17 06:00 Toxic Vacuolation Not Reportable 09/19/17 06:00 Dohle Bodies Not Reportable 09/19/17 06:00 Pelger-Huet Anomaly Not Reportable 09/19/17 06:00 Ariel Rods Not Reportable 09/19/17 06:00 Platelet Estimate Appears normal 09/19/17 06:00 Clumped Platelets Not Reportable 09/19/17 06:00 Plt Clumps, EDTA Not Reportable 09/19/17 06:00 Large Platelets Rare 09/19/17 06:00 Giant Platelets Few 09/19/17 06:00 Platelet Satelliting Not Reportable 09/19/17 06:00 Plt Morphology Comment Not Reportable 09/19/17 06:00 RBC Morphology Not Reportable 09/19/17 06:00 Dimorphic RBCs Not Reportable 09/19/17 06:00 Polychromasia 1+ 09/19/17 06:00 Hypochromasia Not Reportable 09/19/17 06:00 Poikilocytosis Not Reportable 09/19/17 06:00 Anisocytosis 1+ 09/19/17 06:00 Microcytosis Not Reportable 09/19/17 06:00 Macrocytosis Not Reportable 09/19/17 06:00 Spherocytes Not Reportable 09/19/17 06:00 Pappenheimer Bodies Not Reportable 09/19/17 06:00 Sickle Cells Not Reportable 09/19/17 06:00 Target Cells Rare 09/19/17 06:00 Tear Drop Cells Rare 09/19/17 06:00 Ovalocytes Not Reportable 09/19/17 06:00 Stomatocytes Rare 09/12/17 05:25 Helmet Cells Not Reportable 09/19/17 06:00 [place] Bodies Not Reportable 09/19/17 06:00 [place] Rings Not Reportable 09/19/17 06:00 [place] Cells Not Reportable 09/19/17 06:00 Bite Cells Not Reportable 09/19/17 06:00 Crenated Cell Not Reportable 09/19/17 06:00 Elliptocytes Not Reportable 09/19/17 06:00 Acanthocytes (Spur) Not Reportable 09/19/17 06:00 Rouleaux Not Reportable 09/19/17 06:00 Hemoglobin C Crystals Not Reportable 09/19/17 06:00 Schistocytes Not Reportable 09/19/17 06:00 Malaria parasites Not Reportable 09/19/17 06:00 Jovanni Bodies Not Reportable 09/19/17 06:00 Hem Pathologist Commnt No 09/19/17 06:00 PT 14.9 Sec. (12.2-14.9) 09/21/17 07:00 INR 1.11 (0.87-1.13) 09/21/17 07:00 APTT 28.7 Sec. (24.2-36.6) 08/31/17 18:15 POC ABG pH 7.347 (7.35-7.45) L 09/13/17 11:36 ABG pH 7.323 pH Units (7.350-7.450) L 09/09/17 Unknown POC ABG pCO2 34.3 (35-45) L 09/13/17 11:36 ABG pCO2 41.1 mm Hg 09/09/17 Unknown POC ABG pO2 134 (80-105) H 09/13/17 11:36 ABG pO2 94.1 mm Hg (80.0-90.0) H 09/09/17 Unknown POC ABG HCO3 18.8 09/13/17 11:36 ABG HCO3 20.9 mmol/L (20.0-26.0) 09/09/17 Unknown POC ABG Total CO2 20 09/13/17 11:36 POC ABG O2 Sat 99 09/13/17 11:36 ABG O2 Saturation 97.2 % (95.0-99.0) 09/09/17 Unknown ABG O2 Content 10.9 (0.0-44) 09/09/17 Unknown POC ABG Base Excess -7 09/13/17 11:36 ABG Base Excess -4.8 mmol/L (-2.0-3.0) L 09/09/17 Unknown ABG Hemoglobin 8.0 gm/dl (12.0-16.0) L 09/09/17 Unknown ABG Carboxyhemoglobin 2.0 % (0.0-5.0) 09/09/17 Unknown ABG Methemoglobin 0.3 % (0.0-1.5) 09/09/17 Unknown VBG pH 7.462 (7.320-7.420) H 08/08/17 14:52 Oxyhemoglobin 94.9 % (95.0-99.0) L 09/09/17 Unknown FiO2 30 % 09/13/17 11:36 Sodium 140 mmol/L (137-145) 09/21/17 04:00 Potassium 3.2 mmol/L (3.6-5.0) L D 09/21/17 04:00 Chloride 96.4 mmol/L (98-107) L 09/21/17 04:00 Carbon Dioxide 26 mmol/L (22-30) 09/21/17 04:00 Anion Gap 21 mmol/L 09/21/17 04:00 BUN 63 mg/dL (7-17) H 09/21/17 04:00 Creatinine 1.8 mg/dL (0.7-1.2) H 09/21/17 04:00 Estimated GFR 35 ml/min 09/21/17 04:00 BUN/Creatinine Ratio 35 % 09/21/17 04:00 Glucose 204 mg/dL (65-100) H 09/21/17 04:00 POC Glucose 243 (70-105) H 09/21/17 05:45 Lactic Acid 1.60 mmol/L (0.7-2.0) 08/17/17 11:20 Calcium 8.3 mg/dL (8.4-10.2) L 09/21/17 04:00 Phosphorus 2.10 mg/dL (2.5-4.5) L D 09/21/17 04:00 Magnesium 1.50 mg/dL (1.7-2.3) L 09/21/17 04:00 Iron 22 ug/dL (37-170) L 09/12/17 05:25 TIBC 81 mcg/dL (250-450) L 09/12/17 05:25 Ferritin > 2000.0 ng/mL (13.0-400.0) H 09/12/17 05:25 Total Bilirubin 2.40 mg/dL (0.1-1.2) H 09/16/17 05:30 Direct Bilirubin 0.2 mg/dL (0-0.2) 08/08/17 14:11 Indirect Bilirubin 0.3 mg/dL 08/08/17 14:11 AST 90 units/L (5-40) H 09/16/17 05:30 ALT 45 units/L (7-56) 09/16/17 05:30 Alkaline Phosphatase 298 units/L (35-129) H 09/16/17 05:30 Ammonia 25.0 umol/L (25-60) 08/08/17 14:52 Total Creatine Kinase 20 units/L (30-135) L 09/16/17 05:30 Troponin T 0.132 ng/mL (0.00-0.029) H* 08/09/17 13:25 C-Reactive Protein 2.80 mg/dL (0.00-1.30) H 09/06/17 05:30 NT-Pro-B Natriuret Pep 6156 pg/mL (0-900) H 08/08/17 14:11 Total Protein 4.1 g/dL (6.3-8.2) L 09/16/17 05:30 Albumin 1.8 g/dL (3.9-5) L 09/16/17 05:30 Albumin/Globulin Ratio 0.8 % 09/16/17 05:30 Triglycerides 180 mg/dL (2-149) H 09/03/17 04:00 Cholesterol 91 mg/dL (50-199) 08/08/17 21:23 LDL Cholesterol Direct 53 mg/dL (50-130) 08/08/17 21:23 HDL Cholesterol 26 mg/dL (40-59) L 08/08/17 21:23 Cholesterol/HDL Ratio 3.50 % 08/08/17 21:23 Amylase 45 units/L (27-131) 08/16/17 09:50 Lipase 34 units/L (13-60) 08/16/17 09:50 TSH 6.580 mlU/mL (0.270-4.200) H 08/08/17 14:22 Free T4 1.46 ng/dL (0.76-1.46) 08/08/17 14:22 Total Cortisol 28.3 mcg/dL () 09/13/17 12:50 Urine Color Yellow (Yellow) 08/08/17 20:15 Urine Turbidity Turbid (Clear) 08/08/17 20:15 Urine pH 8.0 (5.0-7.0) H 08/08/17 20:15 Ur Specific [place] 1.015 (1.003-1.030) 08/08/17 20:15 Urine Protein 100 mg/dl mg/dL (Negative) 08/08/17 20:15 Urine Glucose (UA) Neg mg/dL (Negative) 08/08/17 20:15 Urine Ketones Neg mg/dL (Negative) 08/08/17 20:15 Urine Blood Mod (Negative) 08/08/17 20:15 Urine Nitrite Neg (Negative) 08/08/17 20:15 Urine Bilirubin Neg (Negative) 08/08/17 20:15 Urine Urobilinogen < 2.0 mg/dL (<2.0) 08/08/17 20:15 Ur Leukocyte Esterase Lg (Negative) 08/08/17 20:15 Urine WBC (Auto) 24.0 /HPF (0.0-6.0) H 08/08/17 20:15 Urine RBC (Auto) 3.0 /HPF (0.0-6.0) 08/08/17 20:15 U Epithel Cells (Auto) 3.0 /HPF (0-13.0) 08/08/17 20:15 Urine Bacteria (Auto) 4+ /HPF (Negative) 08/08/17 20:15 Urine Mucus 3+ /HPF 08/08/17 20:15 Fluid Type Peritoneal 08/08/17 18:18 Fluid Color Straw 08/08/17 18:18 Fluid Appearance Clear 08/08/17 18:18 Fluid pH 7.74 08/08/17 18:18 Fluid WBC 4 /mm3 08/08/17 18:18 Fluid RBC 1 /mm3 08/08/17 18:18 Fluid Seg Neutrophils 12 % 08/08/17 18:18 Fluid Lymphocytes 0 % 08/08/17 18:18 Fluid Reactive Lymphs 0 % 08/08/17 18:18 Fluid Monocytes 1 % 08/08/17 18:18 Fluid Eosinophils 0 % 08/08/17 18:18 Fluid Basophils 0 % 08/08/17 18:18 Fluid Glucose 315 mg/dL (40-70) H 08/08/17 18:18 Random Vancomycin 19.5 ug/mL (0-40.0) 08/22/17 03:40 Hep Bs Antigen Non-reactive (Negative) 08/22/17 03:40 Hepatitis C Antibody Non-reactive (NonReactive) 08/22/17 03:40 Miscellaneous Test Flexitest 1 H 09/06/17 09:57 Blood Type O POSITIVE 09/21/17 Unknown Antibody Screen Negative 09/21/17 11:50 VAN Antibody Screen Negative 09/07/17 17:07 Crossmatch See Detail 09/21/17 11:50
[2017-09-21] MEDS: HEPARIN 10,000 UNITS/10 ML IV PRN (16:21)
--- NOTE | 2017-09-21 16:35 | Progress Note ---
Assessment and Plan - Patient Problems (1) Leukocytosis Current Visit: Yes Status: Acute Qualifiers: Leukocytosis type: L Plan to address problem: See notes above. make sure that PD access is clean also. see notes. Probably infection from the infected PD catheter. improving. back up again. up/down continue to monitor. it continuos to rise. still high. improved. Back up. Now improving again. still in the same range as yesterday.. (2) Anemia Current Visit: Yes Status: Acute Qualifiers: Anemia type: A Iron deficiency anemia type: I Vitamin B12 deficiency anemia type: V Folate deficiency anemia type: F Bone marrow failure anemia type: B Hemolytic anemia type: H Other causes of anemia: O Chronic kidney disease stage: C Plan to address problem: see notes , monitor labs,. see notes above. continue to monitor labs with you. blood transfusion. S/P replacement transfusion. fair. s/p 1unit transfusion. see notes. Still at 7.4 6.9, scheduled for replacement. Fairly stable at this time. continue to monitor. If less, or equal to 7.0, will need replacement transfusion, with HD. (3) Acute respiratory failure Current Visit: Yes Status: Acute Qualifiers: Respiratory failure complication: R Plan to address problem: follow pulm. Subjective Date of service: 09/21/17 Principal diagnosis: respiratory failure, sepsis, shock rectal bleeding Interval history: Patient seen today/examined, labs reviewed, case d/w she, and family.complaints of abdominal pain. Patient resting in bed in the ICU, post vascular procedure. labs reviewed, Reactive thrombocytosis, anemia of CD, leukocytosis from infection vs inflamatory process. Patient seen/examined, in bed in the ICU, on the vent post surgery.Labs reviewed , notes reviewed. will continue to monitor labs/patient with you. Replacement transfusion, if /when indicated. patient seen/examined, SBP75, on pressors., lethargic, on the vent, labs reviewed, wbc 39,000 Patient seen/examined, case reviewed, d/w her sister at the bed side. Patient seen/examined, labs reviewed, notes reviewed. severe septic shock from infected PD catheter The high wbc is all infection related. H?H low, and may get replacement transfusion with the next HD. Prognosis remain quite poor. Patient seen/examined, extubated, now on V Mask. labs reviewed. patient seen/examined, resting in bed, still some what lethargic . labs reviewed. Patient seen/examined, resting in bed., some difficulty with breathing./ lethargic. patient seen/examined, resting in bed, looked much better labs reviewed, and fair over all. Patient seen/examined, resting in bed, labs reviewed, case d/w her. Patient seen/examined, resting in bed on BIPAP., labs reviewed. patient seen/examined, resting in bed, on Bipap.labs reviewed, fairly stable. Patient seen today, resting in bed, labs reviewed, H/H low, and transfusion already ordered. Patient seen/examined, resting in bed, transferred back to the unit, due to resp failure. She is now on venting mask. had blood replacement done. Patient seen/examined in the ICU.labs reviewed. patient intubated this am. patient resting in bed.no new issues. Patient seen/examined in the ICU, on vent,Not readily responsive. patient seen, resting in bed, no new cbc ready.will order for today. Patient seen, resting in vent, labs reviewed.notes reviewed also. patient seen/examined, resting on vent, had HD yesterday, and today., labs reviewed. Patient seen, resting in bed, labs reviewed.fairly stable labs, except the wbc. Patient seen/examined, rtesting in bed on the vent.Labs reviewed, wbc still elevated, Hgb dropped slightly. Patient seen/examined, labs reviewed, hgb 7.3, if 7.0 or less, will replace .unless otherwise indicated. Patient seen/examined, alert but lethargic.sedation drip turned down.she is s/p 1unit PRBC replacement with HD today. Patient seen/examined, labs reviewed, hgb still not quite enough at 7.5, perhaps with the next HD,can use 1-2 units. Patient seen/examined, resting in bed, trached, labs re viewed. Patient seen/examined, resting in bed, responds to name calling, SBP99, labs reviewed, Hgb 6.9, PRBC replacement ordered by primary. Patient seen/examined, in bed/trach, NGT., alert/lethargic. Patient seen/examined, resting in bed, still lethargic, labs reviewed, and still fair.Will continue to follow you. Patient seen/examined, resting in bed, labs reviewed. HD in progress.She is now getting daily HD.Labs reviewed, and still fair. Patient seen/examined, resting in bed, less lethargic/less toxic looking. labs have improved. Patient seen/examined, labs reviewed, fair, case d/w her spouse at the bed side. Patient seen/examined, resting ok in bed, alert, NAD, HD in progress.Labs reviewed, and WBC 27,000, Hgb 7.8. Objective - Constitutional Vitals: Vital Signs - 12hr 09/21/17 09/21/17 09/21/17 04:45 05:01 05:15 Temperature Pulse Rate 111 H 108 H 97 H Respiratory 18 19 28 H Rate Blood Pressure 144/66 151/66 151/66 O2 Sat by Pulse 100 100 100 Oximetry O2 Sat by Pulse Oximetry [ Assessment] 09/21/17 09/21/17 09/21/17 05:31 05:45 06:01 Temperature Pulse Rate 114 H 103 H 112 H Respiratory 20 18 22 Rate Blood Pressure 148/66 148/66 148/66 O2 Sat by Pulse 100 100 100 Oximetry O2 Sat by Pulse Oximetry [ Assessment] 09/21/17 09/21/17 09/21/17 06:15 06:31 06:45 Temperature Pulse Rate 107 H 110 H 106 H Respiratory 19 19 24 Rate Blood Pressure 148/66 148/66 148/66 O2 Sat by Pulse 100 100 100 Oximetry O2 Sat by Pulse Oximetry [ Assessment] 09/21/17 09/21/17 09/21/17 07:01 07:15 07:31 Temperature Pulse Rate 100 H 109 H 113 H Respiratory 21 23 24 Rate Blood Pressure 148/66 140/49 166/66 O2 Sat by Pulse 100 100 100 Oximetry O2 Sat by Pulse Oximetry [ Assessment] 09/21/17 09/21/17 09/21/17 07:45 08:00 08:01 Temperature 98.9 F Pulse Rate 101 H 107 H Respiratory 25 H Rate Blood Pressure 150/57 142/20 143/57 O2 Sat by Pulse 100 100 100 Oximetry O2 Sat by Pulse 100 Oximetry [ Assessment] 09/21/17 09/21/17 09/21/17 08:15 08:31 08:45 Temperature Pulse Rate 105 H 97 H 102 H Respiratory 18 21 22 Rate Blood Pressure 152/62 142/20 132/55 O2 Sat by Pulse 100 100 100 Oximetry O2 Sat by Pulse Oximetry [ Assessment] 09/21/17 09/21/17 09/21/17 09:01 09:15 09:30 Temperature Pulse Rate 110 H 100 H 96 H Respiratory 17 20 18 Rate Blood Pressure 132/55 123/67 113/57 O2 Sat by Pulse 100 100 100 Oximetry O2 Sat by Pulse Oximetry [ Assessment] 09/21/17 09/21/17 09/21/17 09:45 10:00 10:15 Temperature Pulse Rate 99 H 112 H 102 H Respiratory 16 20 23 Rate Blood Pressure 132/65 126/59 118/58 O2 Sat by Pulse 100 100 100 Oximetry O2 Sat by Pulse Oximetry [ Assessment] 09/21/17 09/21/17 09/21/17 10:30 10:45 11:00 Temperature Pulse Rate 103 H 105 H 102 H Respiratory 21 21 15 Rate Blood Pressure 138/61 125/67 133/62 O2 Sat by Pulse 100 100 100 Oximetry O2 Sat by Pulse Oximetry [ Assessment] 09/21/17 09/21/17 09/21/17 11:15 11:30 11:45 Temperature Pulse Rate 105 H 103 H 111 H Respiratory 20 21 18 Rate Blood Pressure 137/61 133/63 148/58 O2 Sat by Pulse 100 100 100 Oximetry O2 Sat by Pulse Oximetry [ Assessment] 09/21/17 09/21/17 09/21/17 12:00 12:01 12:10 Temperature 98.5 F Pulse Rate 112 H 106 H Respiratory 12 Rate Blood Pressure 136/55 136/55 O2 Sat by Pulse 100 100 Oximetry O2 Sat by Pulse Oximetry [ Assessment] 09/21/17 09/21/17 09/21/17 12:15 12:30 12:45 Temperature Pulse Rate 107 H 101 H 109 H Respiratory 19 19 16 Rate Blood Pressure 125/53 136/52 129/60 O2 Sat by Pulse 100 100 100 Oximetry O2 Sat by Pulse Oximetry [ Assessment] 09/21/17 09/21/17 09/21/17 13:00 13:15 13:31 Temperature Pulse Rate 111 H 111 H 104 H Respiratory 13 18 22 Rate Blood Pressure 138/58 145/60 131/85 O2 Sat by Pulse 100 100 100 Oximetry O2 Sat by Pulse Oximetry [ Assessment] 09/21/17 09/21/17 09/21/17 15:30 15:45 16:00 Temperature Pulse Rate 110 H 104 H 109 H Respiratory Rate Blood Pressure 117/68 115/54 124/64 O2 Sat by Pulse Oximetry O2 Sat by Pulse Oximetry [ Assessment] General appearance: Present: mild distress - EENT Eyes: PERRL, EOM intact ENT: hearing intact, clear oral mucosa Ears: bilateral: normal - Neck Neck: supple, normal ROM - Respiratory Respiratory: bilateral: diminished - Breasts Breasts: deferred - Cardiovascular Rhythm: regular Heart Sounds: Present: S1 & S2. Absent: gallop, rub Extremities: pulses intact, No edema, normal color, Full ROM - Gastrointestinal General gastrointestinal: Present: soft, non-tender, non-distended, normal bowel sounds Rectal Exam: deferred - Genitourinary Female genitourinary: deferred - Integumentary Integumentary: clear, warm, dry - Musculoskeletal Musculoskeletal: 1, strength equal bilaterally - Neurologic Neurologic: moves all extremities - Psychiatric Psychiatric: appropriate mood/affect, memory intact - Labs CBC & Chem 7: 09/21/17 08:30 09/21/17 04:00 Labs: Abnormal lab results 09/20/17 09/21/17 09/21/17 Range/Units 17:45 00:51 04:00 WBC (4.5-11.0) K/mm3 RBC (3.65-5.03) M/mm3 Hgb (10.1-14.3) gm/dl Hct (30.3-42.9) % RDW (13.2-15.2) % Plt Count (140-440) K/mm3 Potassium 3.2 L D (3.6-5.0) mmol/L Chloride 96.4 L (98-107) mmol/L BUN 63 H (7-17) mg/dL Creatinine 1.8 H (0.7-1.2) mg/dL Glucose 204 H (65-100) mg/dL POC Glucose 122 H 137 H (70-105) Calcium 8.3 L (8.4-10.2) mg/dL Phosphorus 2.10 L D (2.5-4.5) mg/dL Magnesium 1.50 L (1.7-2.3) mg/dL Crossmatch 09/21/17 09/21/17 09/21/17 Range/Units 05:45 08:30 11:50 WBC 27.5 H (4.5-11.0) K/mm3 RBC 2.52 L (3.65-5.03) M/mm3 Hgb 7.7 L (10.1-14.3) gm/dl Hct 22.8 L (30.3-42.9) % RDW 19.2 H (13.2-15.2) % Plt Count 457 H (140-440) K/mm3 Potassium (3.6-5.0) mmol/L Chloride (98-107) mmol/L BUN (7-17) mg/dL Creatinine (0.7-1.2) mg/dL Glucose (65-100) mg/dL POC Glucose 243 H (70-105) Calcium (8.4-10.2) mg/dL Phosphorus (2.5-4.5) mg/dL Magnesium (1.7-2.3) mg/dL Crossmatch See Detail
[2017-09-21] MEDS: HEPARIN IV PRN (17:39)
[2017-09-21] MEDS ORDERED: TPN ADULT 1,800 ML IV SCH (20:00)
[2017-09-22] MEDS: DILAUDID IV PRN ×4 (00:38→23:29)
[2017-09-22] MEDS: NOVOLOG SUB-Q SCH ×5 (02:05→18:00)
[2017-09-22 04:35] LABS: Albumin/Globulin Ratio 0.8 %; Bilirubin,Total 0.7 mg/dL (0.1-1.2); Calcium 8.4 mg/dL (8.4-10.2); Chloride 95.9 mmol/L (98-107); Magnesium 1.4 mg/dL (1.7-2.3); Phosphorous 2.1 mg/dL (2.5-4.5); Total Protein 4.4 g/dL (6.3-8.2)
--- NOTE | 2017-09-22 05:34 | Progress Note ---
Assessment and Plan - Patient Problems (1) ESRD (end stage renal disease) on dialysis Current Visit: Yes Status: Acute Plan to address problem: Continue HD on MWF and Isolated UF on TTS as tolerated. HD tomorrow. Mostly patient is tolerating fluid removal with hemodialysis. Patient is on TPN. Monitor lytes. (2) Anemia Current Visit: No Status: Chronic Qualifiers: Anemia type: due to chronic kidney disease Iron deficiency anemia type: I Vitamin B12 deficiency anemia type: V Folate deficiency anemia type: F Bone marrow failure anemia type: B Hemolytic anemia type: H Other causes of anemia: O Chronic kidney disease stage: on chronic dialysis Qualified Code(s ): N18.6 - End stage renal disease; D63.1 - Anemia in chronic kidney disease; Z99.2 - Dependence on renal dialysis Plan to address problem: S/p multiple units of PRBC. Epogen on dialysis days. Unable to give IV Iron due to high Ferritin level. (3) Hypotension Current Visit: Yes Status: Chronic Qualifiers: Hypotension type: H Trimester: T Plan to address problem: Off Levophed today. (4) Volume overload Current Visit: Yes Status: Acute Qualifiers: Hypervolemia type: H Plan to address problem: UF as tolerated. (5) Leukocytosis Current Visit: Yes Status: Acute Qualifiers: Leukocytosis type: unspecified Qualified Code(s): D72.829 - Elevated white blood cell count, unspecified (6) Acute respiratory failure with hypoxemia Current Visit: Yes Status: Acute Plan to address problem: On the vent. (7) Sepsis Current Visit: Yes Status: Acute Qualifiers: Sepsis type: S Subjective Date of service: 09/22/17 Principal diagnosis: respiratory failure, sepsis, shock rectal bleeding Interval history: Patient was seen and examined at the bedside. Remain on the vent. Objective - Vital Signs Vital signs: Vital Signs - 12hr 09/21/17 09/21/17 09/21/17 17:45 17:46 18:00 Temperature Pulse Rate 105 H 120 H 105 H Respiratory 25 H 24 Rate Blood Pressure 112/56 96/60 112/56 O2 Sat by Pulse 100 100 Oximetry O2 Sat by Pulse Oximetry [ Assessment] 09/21/17 09/21/17 09/21/17 18:04 18:15 18:30 Temperature 98.0 F Pulse Rate 106 H 104 H 107 H Respiratory 22 23 20 Rate Blood Pressure 112/56 105/56 113/53 O2 Sat by Pulse 100 100 Oximetry O2 Sat by Pulse Oximetry [ Assessment] 09/21/17 09/21/17 09/21/17 18:45 19:00 19:15 Temperature Pulse Rate 106 H 105 H 113 H Respiratory 19 15 23 Rate Blood Pressure 128/65 127/58 139/66 O2 Sat by Pulse 100 100 100 Oximetry O2 Sat by Pulse Oximetry [ Assessment] 09/21/17 09/21/17 09/21/17 19:30 19:46 19:54 Temperature 98.2 F Pulse Rate 102 H 105 H Respiratory 18 23 Rate Blood Pressure 134/72 122/47 O2 Sat by Pulse 100 100 Oximetry O2 Sat by Pulse Oximetry [ Assessment] 09/21/17 09/21/17 09/21/17 19:55 20:00 20:16 Temperature Pulse Rate 105 H 105 H 109 H Respiratory 15 12 Rate Blood Pressure 122/47 144/71 149/65 O2 Sat by Pulse 100 100 100 Oximetry O2 Sat by Pulse Oximetry [ Assessment] 09/21/17 09/21/17 09/21/17 20:30 20:45 21:00 Temperature Pulse Rate 111 H 97 H 103 H Respiratory 13 17 19 Rate Blood Pressure 133/72 125/84 125/55 O2 Sat by Pulse 100 100 100 Oximetry O2 Sat by Pulse Oximetry [ Assessment] 09/21/17 09/21/17 09/21/17 21:16 21:30 21:45 Temperature Pulse Rate 99 H 110 H 104 H Respiratory 20 12 16 Rate Blood Pressure 110/58 127/72 132/64 O2 Sat by Pulse 100 100 100 Oximetry O2 Sat by Pulse Oximetry [ Assessment] 09/21/17 09/21/17 09/21/17 22:00 22:16 22:30 Temperature Pulse Rate 103 H 95 H 102 H Respiratory 22 20 13 Rate Blood Pressure 132/64 126/69 136/72 O2 Sat by Pulse 100 100 100 Oximetry O2 Sat by Pulse Oximetry [ Assessment] 09/21/17 09/21/17 09/21/17 22:45 23:00 23:15 Temperature Pulse Rate 102 H 97 H 104 H Respiratory 22 21 14 Rate Blood Pressure 147/64 128/60 148/67 O2 Sat by Pulse 100 100 100 Oximetry O2 Sat by Pulse Oximetry [ Assessment] 10/09/21/17 09/21/17 23:20 23:30 23:34 Temperature 98.4 F Pulse Rate 98 H 101 H Respiratory 22 Rate Blood Pressure 139/67 139/67 O2 Sat by Pulse 100 100 Oximetry O2 Sat by Pulse Oximetry [ Assessment] 09/21/17 09/21/17 09/21/17 23:36 23:45 23:48 Temperature Pulse Rate 108 H 112 H Respiratory 23 28 H Rate Blood Pressure 151/64 151/64 O2 Sat by Pulse 100 100 Oximetry O2 Sat by Pulse 99 Oximetry [ Assessment] 09/22/17 09/22/17 09/22/17 00:00 00:15 00:30 Temperature Pulse Rate 99 H 98 H 98 H Respiratory 16 18 24 Rate Blood Pressure 132/68 142/62 130/66 O2 Sat by Pulse 100 100 100 Oximetry O2 Sat by Pulse Oximetry [ Assessment] 09/22/17 09/22/17 09/22/17 00:38 00:40 00:45 Temperature Pulse Rate 100 H Respiratory 14 12 12 Rate Blood Pressure 131/69 O2 Sat by Pulse 100 100 Oximetry O2 Sat by Pulse Oximetry [ Assessment] 09/22/17 09/22/17 09/22/17 01:00 01:15 01:30 Temperature Pulse Rate 97 H 97 H 104 H Respiratory 13 26 H 15 Rate Blood Pressure 129/61 143/62 139/91 O2 Sat by Pulse 100 100 100 Oximetry O2 Sat by Pulse Oximetry [ Assessment] 09/22/17 09/22/17 09/22/17 01:45 02:00 02:15 Temperature Pulse Rate 99 H 102 H 103 H Respiratory 17 17 23 Rate Blood Pressure 132/90 133/86 129/62 O2 Sat by Pulse 100 100 100 Oximetry O2 Sat by Pulse Oximetry [ Assessment] 09/22/17 09/22/17 09/22/17 02:30 02:45 03:00 Temperature Pulse Rate 106 H 103 H 99 H Respiratory 24 25 H 19 Rate Blood Pressure 132/53 134/48 129/66 O2 Sat by Pulse 100 100 99 Oximetry O2 Sat by Pulse Oximetry [ Assessment] 09/22/17 09/22/17 03:39 04:38 Temperature 98.7 F Pulse Rate 89 Respiratory Rate Blood Pressure 128/78 O2 Sat by Pulse 100 Oximetry O2 Sat by Pulse Oximetry [ Assessment] - General Appearance General appearance: well-developed, appears stated age, obese, other (on vent) EENT: ATNC, PERRL Neck: supple Respiratory: Present: Clear to Ascultation Cardiology: regular, S1S2, no murmurs Gastrointestinal: obese, other (dressing, ostomy, MERVIN drain and PEG tube noted) Integumentary: no rash Neurologic: other (alert, not following any command) Musculoskeletal: other (2+ edema of both LEs noted) - Lab 09/22/17 07:35 09/22/17 03:37 Most recent lab results ABG pH 7.323 pH Units (7.350-7.450) L 09/09/17 Unknown ABG pCO2 41.1 mm Hg 09/09/17 Unknown ABG pO2 94.1 mm Hg (80.0-90.0) H 09/09/17 Unknown ABG HCO3 20.9 mmol/L (20.0-26.0) 09/09/17 Unknown ABG O2 Saturation 97.2 % (95.0-99.0) 09/09/17 Unknown Calcium 8.4 mg/dL (8.4-10.2) 09/22/17 03:37 Phosphorus 2.10 mg/dL (2.5-4.5) L 09/22/17 03:37 Magnesium 1.40 mg/dL (1.7-2.3) L 09/22/17 03:37
[2017-09-22] MEDS ORDERED: MAGNESIUM SULFATE 2GM/50ML 2 GM/50 ML BAG IV ONE (05:35)
[2017-09-22 07:54] LABS: Hematocrit 24.1 % (30.3-42.9); Hemoglobin 8.1 gm/dl (10.1-14.3); Mean Corpuscular HGB Conc 34 % (30-34); Mean Corpuscular Hemoglobin 30 pg (28-32); Mean Corpuscular Volume 89 fl (79-97); Platelet Count 491 K/mm3 (140-440); Red Blood Count 2.71 M/mm3 (3.65-5.03); Red Cell Distribution Width 19.6 % (13.2-15.2)
[2017-09-22 07:58] LABS: White Blood Count 29.7 K/mm3 (4.5-11.0)
[2017-09-22] MEDS: LEVEMIR SUB-Q SCH (10:04)
[2017-09-22] MEDS: PROTONIX IV SCH (10:04)
--- NOTE | 2017-09-22 10:59 | Progress Note ---
Assessment and Plan 62 y/o female originally admitted with hypotension, now back to ICU secondary to worsening hypotension, concern for sepsis, with acute respiratory failure post-op from ex-lap for abdominal distention and possible ileus, now back from OR after worsening respiratory failure, requiring re-intubation and wash out of abdomen 1. Continue to montior off presssors, keep maps >60 2. HD per renal, has been having at least 6x weekly. 3. Continue PSV trials as tolerated. Rest on rate while on HD. Tolerated yesterday being on HD and PSV, will continue as tolerated. Now that off pressors, will try lower rates of PSV, like 08/29 4. Steroids have been discontinued, please attempt to not restart these as surgery feels it is impedeing the healing of the abdominal wound 5. Hopeful that surgery will start to use gut soon. 6. Once medical issues have concrete plan, should be ready for transfer to [facility] Overall prognosis is guarded to poor CCT 31 Subjective Date of service: 09/22/17 Principal diagnosis: respiratory failure, sepsis, shock rectal bleeding Interval history: Finally off pressors since yesterday. Tolerated HD off pressors as well. Did not go to OR on yesterday. Objective Vital Signs - 12hr 09/21/17 09/21/17 09/21/17 23:00 23:15 23:20 Temperature 98.4 F Pulse Rate 97 H 104 H Respiratory 21 14 Rate Blood Pressure 128/60 148/67 O2 Sat by Pulse 100 100 Oximetry O2 Sat by Pulse Oximetry [ Assessment] 09/21/17 09/21/17 09/21/17 23:30 23:34 23:36 Temperature Pulse Rate 98 H 101 H Respiratory 22 Rate Blood Pressure 139/67 139/67 O2 Sat by Pulse 100 100 Oximetry O2 Sat by Pulse 99 Oximetry [ Assessment] 09/21/17 09/21/17 09/22/17 23:45 23:48 00:00 Temperature Pulse Rate 108 H 112 H 99 H Respiratory 23 28 H 16 Rate Blood Pressure 151/64 151/64 132/68 O2 Sat by Pulse 100 100 100 Oximetry O2 Sat by Pulse Oximetry [ Assessment] 09/22/17 09/22/17 09/22/17 00:15 00:30 00:38 Temperature Pulse Rate 98 H 98 H Respiratory 18 24 14 Rate Blood Pressure 142/62 130/66 O2 Sat by Pulse 100 100 Oximetry O2 Sat by Pulse Oximetry [ Assessment] 09/22/17 09/22/17 09/22/17 00:40 00:45 01:00 Temperature Pulse Rate 100 H 97 H Respiratory 12 12 13 Rate Blood Pressure 131/69 129/61 O2 Sat by Pulse 100 100 100 Oximetry O2 Sat by Pulse Oximetry [ Assessment] 09/22/17 09/22/17 09/22/17 01:15 01:30 01:45 Temperature Pulse Rate 97 H 104 H 99 H Respiratory 26 H 15 17 Rate Blood Pressure 143/62 139/91 132/90 O2 Sat by Pulse 100 100 100 Oximetry O2 Sat by Pulse Oximetry [ Assessment] 09/22/17 09/22/17 09/22/17 02:00 02:15 02:30 Temperature Pulse Rate 102 H 103 H 106 H Respiratory 17 23 24 Rate Blood Pressure 133/86 129/62 132/53 O2 Sat by Pulse 100 100 100 Oximetry O2 Sat by Pulse Oximetry [ Assessment] 09/22/17 09/22/17 09/22/17 02:45 03:00 03:16 Temperature Pulse Rate 103 H 99 H 96 H Respiratory 25 H 19 24 Rate Blood Pressure 134/48 129/66 132/51 O2 Sat by Pulse 100 99 98 Oximetry O2 Sat by Pulse Oximetry [ Assessment] 09/22/17 09/22/17 09/22/17 03:30 03:39 03:45 Temperature 98.7 F Pulse Rate 109 H 100 H Respiratory 13 24 Rate Blood Pressure 139/104 129/110 O2 Sat by Pulse 98 99 Oximetry O2 Sat by Pulse Oximetry [ Assessment] 09/22/17 09/22/17 09/22/17 04:00 04:16 04:30 Temperature Pulse Rate 106 H 101 H 110 H Respiratory 20 20 14 Rate Blood Pressure 129/110 112/64 112/64 O2 Sat by Pulse 100 99 100 Oximetry O2 Sat by Pulse Oximetry [ Assessment] 09/22/17 09/22/17 09/22/17 04:38 04:46 05:00 Temperature Pulse Rate 89 108 H 106 H Respiratory 16 18 Rate Blood Pressure 128/78 127/51 127/51 O2 Sat by Pulse 100 100 100 Oximetry O2 Sat by Pulse Oximetry [ Assessment] 09/22/17 09/22/17 09/22/17 05:15 05:30 05:46 Temperature Pulse Rate 102 H 108 H 111 H Respiratory 16 20 26 H Rate Blood Pressure 132/72 133/68 143/69 O2 Sat by Pulse 100 100 100 Oximetry O2 Sat by Pulse Oximetry [ Assessment] 09/22/17 09/22/17 09/22/17 05:56 06:00 06:16 Temperature Pulse Rate 105 H 97 H Respiratory 21 21 19 Rate Blood Pressure 145/80 134/53 O2 Sat by Pulse 100 100 Oximetry O2 Sat by Pulse Oximetry [ Assessment] 09/22/17 09/22/17 09/22/17 06:30 06:46 07:00 Temperature Pulse Rate 105 H 111 H 110 H Respiratory 22 23 17 Rate Blood Pressure 134/53 132/70 132/70 O2 Sat by Pulse 100 99 100 Oximetry O2 Sat by Pulse Oximetry [ Assessment] 09/22/17 09/22/17 09/22/17 07:15 07:30 08:00 Temperature 98.2 F Pulse Rate 103 H 106 H Respiratory 27 H 18 Rate Blood Pressure 134/78 134/78 O2 Sat by Pulse 100 100 Oximetry O2 Sat by Pulse Oximetry [ Assessment] 09/22/17 09/22/17 08:48 09:04 Temperature Pulse Rate 100 H 99 H Respiratory 28 H Rate Blood Pressure 125/66 142/67 O2 Sat by Pulse 99 100 Oximetry O2 Sat by Pulse Oximetry [ Assessment] Constitutional: no acute distress, other (critically ill on vent, obese) Eyes: non-icteric ENT: oropharynx dry Neck: supple, no lymphadenopathy, no JVD (large neck), other (trach in position , no bleeding) Effort: mildly labored Ascultation: Bilateral: diminished breath sounds (Limited expansion) Cardiovascular: regular rate and rhythm Gastrointestinal: absent bowel sounds, tender, other (abdominal incision with dressing , obese. Drain in place, no bleeding) Integumentary: normal Extremities: no cyanosis, pink and warm, edema Neurologic: non-focal exam, pupils equal and round Psychiatric: mood appropriate, affect normal CBC and BMP: 09/22/17 07:35 09/22/17 03:37 ABG, PT/INR, D-dimer: ABG POC ABG pH 7.347 (7.35-7.45) L 09/13/17 11:36 ABG pH 7.323 pH Units (7.350-7.450) L 09/09/17 Unknown POC ABG pCO2 34.3 (35-45) L 09/13/17 11:36 ABG pCO2 41.1 mm Hg 09/09/17 Unknown POC ABG pO2 134 (80-105) H 09/13/17 11:36 ABG pO2 94.1 mm Hg (80.0-90.0) H 09/09/17 Unknown POC ABG HCO3 18.8 09/13/17 11:36 POC ABG Total CO2 20 09/13/17 11:36 POC ABG O2 Sat 99 09/13/17 11:36 ABG O2 Saturation 97.2 % (95.0-99.0) 09/09/17 Unknown PT/INR, D-dimer PT 14.9 Sec. (12.2-14.9) 09/21/17 07:00 INR 1.11 (0.87-1.13) 09/21/17 07:00 Abnormal lab findings: Abnormal Labs 08/08/17 08/08/17 08/09/17 21:23 21:31 11:19 WBC 15.7 H RBC 2.93 L Hgb 8.7 L Hct 26.8 L MCV MCH RDW 19.2 H Plt Count Lymph % (Auto) Grimes % (Auto) Grimes # Seg Neutrophils % Seg Neuts % (Manual) Lymphocytes % (Manual) Monocytes % (Manual) Nucleated RBC % Seg Neutrophils # Seg Neutrophils # Man Lymphocytes # (Manual) Monocytes # (Manual) Eosinophils # (Manual) Basophils # (Manual) PT INR POC ABG pH 7.490 H ABG pH POC ABG pCO2 POC ABG pO2 122 H ABG pO2 ABG O2 Saturation ABG Base Excess ABG Hemoglobin Oxyhemoglobin Sodium Potassium Chloride Carbon Dioxide BUN Creatinine Glucose POC Glucose Calcium Phosphorus Magnesium Iron TIBC Ferritin Total Bilirubin AST ALT Alkaline Phosphatase Total Creatine Kinase Troponin T 0.133 H* C-Reactive Protein Total Protein Albumin Triglycerides HDL Cholesterol 26 L Miscellaneous Test Crossmatch 08/09/17 08/10/17 08/10/17 13:25 04:45 04:45 WBC 15.5 H RBC 2.97 L Hgb 8.9 L Hct 27.0 L MCV MCH RDW 19.2 H Plt Count Lymph % (Auto) Grimes % (Auto) Grimes # Seg Neutrophils % Seg Neuts % (Manual) 73.0 H Lymphocytes % (Manual) 7.0 L Monocytes % (Manual) 14.0 H Nucleated RBC % Seg Neutrophils # Seg Neutrophils # Man 11.3 H Lymphocytes # (Manual) 1.1 L Monocytes # (Manual) 2.2 H Eosinophils # (Manual) Basophils # (Manual) 0.2 H PT INR POC ABG pH ABG pH POC ABG pCO2 POC ABG pO2 ABG pO2 ABG O2 Saturation ABG Base Excess ABG Hemoglobin Oxyhemoglobin Sodium Potassium 3.3 L Chloride 97.3 L Carbon Dioxide 21 L BUN 23 H Creatinine 6.5 H Glucose POC Glucose Calcium 7.3 L Phosphorus Magnesium Iron TIBC Ferritin Total Bilirubin AST ALT Alkaline Phosphatase 138 H Total Creatine Kinase Troponin T 0.132 H* C-Reactive Protein Total Protein 4.8 L Albumin 1.4 L Triglycerides HDL Cholesterol Miscellaneous Test Crossmatch 08/11/17 08/11/17 08/12/17 04:00 04:00 05:50 WBC 19.3 H RBC 3.10 L Hgb 9.5 L Hct 28.2 L MCV MCH RDW 19.2 H Plt Count 463 H Lymph % (Auto) 7.5 L Grimes % (Auto) 14.6 H Grimes # 2.8 H Seg Neutrophils % 77.0 H Seg Neuts % (Manual) Lymphocytes % (Manual) Monocytes % (Manual) Nucleated RBC % Seg Neutrophils # 14.8 H Seg Neutrophils # Man Lymphocytes # (Manual) Monocytes # (Manual) Eosinophils # (Manual) Basophils # (Manual) PT INR POC ABG pH ABG pH POC ABG pCO2 POC ABG pO2 ABG pO2 ABG O2 Saturation ABG Base Excess ABG Hemoglobin Oxyhemoglobin Sodium 136 L 136 L Potassium 3.3 L Chloride 96.3 L 96.6 L Carbon Dioxide BUN 26 H 26 H Creatinine 6.4 H 6.2 H Glucose 135 H 133 H POC Glucose Calcium 8.2 L Phosphorus Magnesium 1.30 L Iron TIBC Ferritin Total Bilirubin AST ALT Alkaline Phosphatase 139 H Total Creatine Kinase Troponin T C-Reactive Protein Total Protein 5.5 L Albumin 1.7 L Triglycerides HDL Cholesterol Miscellaneous Test Crossmatch 08/12/17 08/12/17 08/12/17 05:50 05:50 05:50 WBC 20.1 H RBC 3.06 L Hgb 9.3 L Hct 27.9 L MCV MCH RDW 18.4 H Plt Count 471 H Lymph % (Auto) Grimes % (Auto) Grimes # Seg Neutrophils % Seg Neuts % (Manual) 85.0 H Lymphocytes % (Manual) 8.0 L Monocytes % (Manual) Nucleated RBC % Seg Neutrophils # Seg Neutrophils # Man 17.1 H Lymphocytes # (Manual) Monocytes # (Manual) 1.0 H Eosinophils # (Manual) Basophils # (Manual) PT 15.2 H INR 1.14 H POC ABG pH ABG pH POC ABG pCO2 POC ABG pO2 ABG pO2 ABG O2 Saturation ABG Base Excess ABG Hemoglobin Oxyhemoglobin Sodium Potassium Chloride Carbon Dioxide BUN Creatinine Glucose POC Glucose Calcium Phosphorus Magnesium Iron TIBC Ferritin Total Bilirubin AST ALT Alkaline Phosphatase Total Creatine Kinase Troponin T C-Reactive Protein 28.90 H Total Protein Albumin Triglycerides HDL Cholesterol Miscellaneous Test Crossmatch 08/12/17 08/13/17 08/13/17 16:23 06:14 06:14 WBC 21.8 H RBC 3.11 L Hgb 9.4 L Hct 28.2 L MCV MCH RDW 18.2 H Plt Count 492 H Lymph % (Auto) Grimes % (Auto) Grimes # Seg Neutrophils % Seg Neuts % (Manual) 73.0 H Lymphocytes % (Manual) 2.0 L Monocytes % (Manual) 15 H Nucleated RBC % Seg Neutrophils # Seg Neutrophils # Man 15.9 H Lymphocytes # (Manual) 0.4 L Monocytes # (Manual) 2.4 H Eosinophils # (Manual) Basophils # (Manual) PT INR POC ABG pH ABG pH POC ABG pCO2 POC ABG pO2 ABG pO2 ABG O2 Saturation ABG Base Excess ABG Hemoglobin Oxyhemoglobin Sodium Potassium Chloride 96.2 L Carbon Dioxide BUN 28 H Creatinine 5.6 H Glucose 114 H POC Glucose Calcium Phosphorus Magnesium Iron TIBC Ferritin Total Bilirubin AST ALT Alkaline Phosphatase Total Creatine Kinase Troponin T C-Reactive Protein 26.10 H Total Protein Albumin Triglycerides HDL Cholesterol Miscellaneous Test Crossmatch 08/13/17 08/14/17 08/14/17 16:39 04:00 04:00 WBC 22.1 H RBC 3.25 L Hgb 9.9 L Hct 29.5 L MCV MCH RDW 17.9 H Plt Count 525 H Lymph % (Auto) Grimes % (Auto) Grimes # Seg Neutrophils % Seg Neuts % (Manual) 74.0 H Lymphocytes % (Manual) 8.0 L Monocytes % (Manual) 12.0 H Nucleated RBC % Seg Neutrophils # Seg Neutrophils # Man 16.4 H Lymphocytes # (Manual) Monocytes # (Manual) 2.7 H Eosinophils # (Manual) Basophils # (Manual) PT INR POC ABG pH ABG pH POC ABG pCO2 POC ABG pO2 ABG pO2 ABG O2 Saturation ABG Base Excess ABG Hemoglobin Oxyhemoglobin Sodium 134 L Potassium 3.3 L Chloride 93.3 L Carbon Dioxide BUN 27 H Creatinine 6.0 H Glucose 152 H POC Glucose 151 H Calcium Phosphorus Magnesium Iron TIBC Ferritin Total Bilirubin AST ALT Alkaline Phosphatase Total Creatine Kinase Troponin T C-Reactive Protein Total Protein Albumin Triglycerides HDL Cholesterol Miscellaneous Test Crossmatch 08/15/17 08/16/17 08/16/17 09:10 09:50 09:50 WBC 31.1 H RBC 3.21 L Hgb 9.6 L Hct 29.3 L MCV MCH RDW 18.1 H Plt Count 642 H Lymph % (Auto) Grimes % (Auto) Grimes # Seg Neutrophils % Seg Neuts % (Manual) 74.0 H Lymphocytes % (Manual) 4.0 L Monocytes % (Manual) 9.0 H Nucleated RBC % Seg Neutrophils # Seg Neutrophils # Man 23.0 H Lymphocytes # (Manual) Monocytes # (Manual) 2.8 H Eosinophils # (Manual) Basophils # (Manual) PT INR POC ABG pH ABG pH POC ABG pCO2 POC ABG pO2 ABG pO2 ABG O2 Saturation ABG Base Excess ABG Hemoglobin Oxyhemoglobin Sodium 136 L 136 L Potassium 3.5 L Chloride 97.6 L 94.9 L Carbon Dioxide BUN 27 H 28 H Creatinine 5.6 H 5.5 H Glucose 117 H 103 H POC Glucose Calcium Phosphorus Magnesium Iron TIBC Ferritin Total Bilirubin AST ALT Alkaline Phosphatase 137 H Total Creatine Kinase Troponin T C-Reactive Protein Total Protein 5.4 L Albumin 1.5 L Triglycerides HDL Cholesterol Miscellaneous Test Crossmatch 08/16/17 08/17/17 08/17/17 09:50 05:00 06:26 WBC RBC Hgb Hct MCV MCH RDW Plt Count Lymph % (Auto) Grimes % (Auto) Grimes # Seg Neutrophils % Seg Neuts % (Manual) Lymphocytes % (Manual) Monocytes % (Manual) Nucleated RBC % Seg Neutrophils # Seg Neutrophils # Man Lymphocytes # (Manual) Monocytes # (Manual) Eosinophils # (Manual) Basophils # (Manual) PT INR POC ABG pH ABG pH POC ABG pCO2 POC ABG pO2 ABG pO2 ABG O2 Saturation ABG Base Excess ABG Hemoglobin Oxyhemoglobin Sodium 134 L Potassium 3.0 L Chloride 97.8 L Carbon Dioxide BUN 30 H Creatinine 5.3 H Glucose 147 H POC Glucose 165 H Calcium 7.5 L Phosphorus Magnesium Iron TIBC Ferritin Total Bilirubin AST ALT Alkaline Phosphatase Total Creatine Kinase Troponin T C-Reactive Protein 32.30 H Total Protein Albumin Triglycerides HDL Cholesterol Miscellaneous Test Crossmatch 08/17/17 08/17/17 08/17/17 10:56 11:20 11:20 WBC 39.1 H RBC 3.10 L Hgb 9.2 L Hct 28.6 L MCV MCH RDW 18.3 H Plt Count 580 H Lymph % (Auto) Grimes % (Auto) Grimes # Seg Neutrophils % Seg Neuts % (Manual) 89.5 H Lymphocytes % (Manual) 3.5 L Monocytes % (Manual) Nucleated RBC % Seg Neutrophils # Seg Neutrophils # Man 35.0 H Lymphocytes # (Manual) Monocytes # (Manual) 2.5 H Eosinophils # (Manual) Basophils # (Manual) 0.2 H PT INR POC ABG pH 7.464 H ABG pH POC ABG pCO2 34.1 L POC ABG pO2 75 L ABG pO2 ABG O2 Saturation ABG Base Excess ABG Hemoglobin Oxyhemoglobin Sodium Potassium Chloride Carbon Dioxide BUN Creatinine Glucose POC Glucose Calcium Phosphorus Magnesium Iron TIBC Ferritin Total Bilirubin AST ALT Alkaline Phosphatase Total Creatine Kinase Troponin T C-Reactive Protein Total Protein Albumin Triglycerides HDL Cholesterol Miscellaneous Test Flexitest 1 H Crossmatch 08/17/17 08/17/17 08/17/17 11:20 16:57 20:20 WBC 34.4 H RBC 2.81 L Hgb 8.4 L Hct 26.0 L MCV MCH RDW 17.8 H Plt Count 455 H Lymph % (Auto) Grimes % (Auto) Grimes # Seg Neutrophils % Seg Neuts % (Manual) Lymphocytes % (Manual) 3.5 L Monocytes % (Manual) Nucleated RBC % 5.0 H Seg Neutrophils # Seg Neutrophils # Man 16.5 H Lymphocytes # (Manual) Monocytes # (Manual) 1.0 H Eosinophils # (Manual) Basophils # (Manual) PT 16.0 H INR 1.29 H POC ABG pH ABG pH POC ABG pCO2 POC ABG pO2 ABG pO2 ABG O2 Saturation ABG Base Excess ABG Hemoglobin Oxyhemoglobin Sodium 135 L Potassium 2.9 L* Chloride Carbon Dioxide 20 L BUN 32 H Creatinine 5.4 H Glucose 129 H POC Glucose Calcium 7.5 L Phosphorus Magnesium 1.50 L Iron TIBC Ferritin Total Bilirubin AST 85 H ALT Alkaline Phosphatase Total Creatine Kinase Troponin T C-Reactive Protein Total Protein 4.0 L D Albumin 1.6 L Triglycerides HDL Cholesterol Miscellaneous Test Crossmatch 08/17/17 08/17/17 08/18/17 20:54 23:47 04:26 WBC RBC Hgb Hct MCV MCH RDW Plt Count Lymph % (Auto) Grimes % (Auto) Grimes # Seg Neutrophils % Seg Neuts % (Manual) Lymphocytes % (Manual) Monocytes % (Manual) Nucleated RBC % Seg Neutrophils # Seg Neutrophils # Man Lymphocytes # (Manual) Monocytes # (Manual) Eosinophils # (Manual) Basophils # (Manual) PT INR POC ABG pH 7.557 H ABG pH POC ABG pCO2 23.1 L 29.0 L POC ABG pO2 187 H 148 H ABG pO2 ABG O2 Saturation ABG Base Excess ABG Hemoglobin Oxyhemoglobin Sodium Potassium Chloride Carbon Dioxide BUN Creatinine Glucose POC Glucose 188 H Calcium Phosphorus Magnesium Iron TIBC Ferritin Total Bilirubin AST ALT Alkaline Phosphatase Total Creatine Kinase Troponin T C-Reactive Protein Total Protein Albumin Triglycerides HDL Cholesterol Miscellaneous Test Crossmatch 08/18/17 08/18/17 08/18/17 05:51 11:44 17:07 WBC RBC Hgb Hct MCV MCH RDW Plt Count Lymph % (Auto) Grimes % (Auto) Grimes # Seg Neutrophils % Seg Neuts % (Manual) Lymphocytes % (Manual) Monocytes % (Manual) Nucleated RBC % Seg Neutrophils # Seg Neutrophils # Man Lymphocytes # (Manual) Monocytes # (Manual) Eosinophils # (Manual) Basophils # (Manual) PT INR POC ABG pH ABG pH POC ABG pCO2 POC ABG pO2 ABG pO2 ABG O2 Saturation ABG Base Excess ABG Hemoglobin Oxyhemoglobin Sodium Potassium Chloride Carbon Dioxide BUN Creatinine Glucose POC Glucose 202 H 195 H 182 H Calcium Phosphorus Magnesium Iron TIBC Ferritin Total Bilirubin AST ALT Alkaline Phosphatase Total Creatine Kinase Troponin T C-Reactive Protein Total Protein Albumin Triglycerides HDL Cholesterol Miscellaneous Test Crossmatch 08/18/17 08/18/17 08/18/17 23:45 Unknown Unknown WBC 39.0 H RBC 2.84 L Hgb 8.4 L Hct 26.5 L MCV MCH RDW 18.0 H Plt Count 476 H Lymph % (Auto) Grimes % (Auto) Grimes # Seg Neutrophils % Seg Neuts % (Manual) Lymphocytes % (Manual) 7.0 L Monocytes % (Manual) 10.0 H Nucleated RBC % 3.0 H Seg Neutrophils # Seg Neutrophils # Man 15.6 H Lymphocytes # (Manual) Monocytes # (Manual) 3.9 H Eosinophils # (Manual) Basophils # (Manual) PT INR POC ABG pH ABG pH POC ABG pCO2 POC ABG pO2 ABG pO2 ABG O2 Saturation ABG Base Excess ABG Hemoglobin Oxyhemoglobin Sodium Potassium Chloride Carbon Dioxide 19 L BUN 34 H Creatinine 5.6 H Glucose 201 H POC Glucose 163 H Calcium 7.8 L Phosphorus 1.90 L D Magnesium 1.60 L Iron TIBC Ferritin Total Bilirubin AST ALT Alkaline Phosphatase Total Creatine Kinase Troponin T C-Reactive Protein Total Protein Albumin Triglycerides HDL Cholesterol Miscellaneous Test Crossmatch 08/19/17 08/19/17 08/19/17 04:18 05:00 05:00 WBC 40.0 H RBC 2.46 L Hgb 7.3 L Hct 22.6 L MCV MCH RDW 18.1 H Plt Count Lymph % (Auto) Grimes % (Auto) Grimes # Seg Neutrophils % Seg Neuts % (Manual) Lymphocytes % (Manual) 8.0 L Monocytes % (Manual) Nucleated RBC % 2.0 H Seg Neutrophils # Seg Neutrophils # Man 16.4 H Lymphocytes # (Manual) Monocytes # (Manual) 1.2 H Eosinophils # (Manual) 1.2 H Basophils # (Manual) PT INR POC ABG pH 7.463 H ABG pH POC ABG pCO2 29.7 L POC ABG pO2 134 H ABG pO2 ABG O2 Saturation ABG Base Excess ABG Hemoglobin Oxyhemoglobin Sodium Potassium 5.1 H D Chloride Carbon Dioxide 20 L BUN 40 H Creatinine 5.3 H Glucose 128 H POC Glucose Calcium 7.8 L Phosphorus 1.90 L Magnesium Iron TIBC Ferritin Total Bilirubin AST ALT Alkaline Phosphatase Total Creatine Kinase Troponin T C-Reactive Protein Total Protein Albumin Triglycerides HDL Cholesterol Miscellaneous Test Crossmatch 08/19/17 08/19/17 08/19/17 05:19 07:37 09:52 WBC 45.0 H* RBC 2.50 L Hgb 7.5 L Hct 24.5 L MCV 98 H MCH RDW 18.4 H Plt Count Lymph % (Auto) Grimes % (Auto) Grimes # Seg Neutrophils % Seg Neuts % (Manual) 81.5 H Lymphocytes % (Manual) 4.0 L Monocytes % (Manual) Nucleated RBC % 1.0 H Seg Neutrophils # Seg Neutrophils # Man 36.7 H Lymphocytes # (Manual) Monocytes # (Manual) Eosinophils # (Manual) Basophils # (Manual) PT INR POC ABG pH ABG pH POC ABG pCO2 POC ABG pO2 ABG pO2 ABG O2 Saturation ABG Base Excess ABG Hemoglobin Oxyhemoglobin Sodium Potassium Chloride Carbon Dioxide BUN Creatinine Glucose POC Glucose 142 H Calcium Phosphorus Magnesium Iron TIBC Ferritin Total Bilirubin AST ALT Alkaline Phosphatase Total Creatine Kinase Troponin T C-Reactive Protein 34.20 H Total Protein Albumin Triglycerides HDL Cholesterol Miscellaneous Test Crossmatch 08/19/17 08/19/17 08/20/17 11:16 18:12 00:35 WBC RBC Hgb Hct MCV MCH RDW Plt Count Lymph % (Auto) Grimes % (Auto) Grimes # Seg Neutrophils % Seg Neuts % (Manual) Lymphocytes % (Manual) Monocytes % (Manual) Nucleated RBC % Seg Neutrophils # Seg Neutrophils # Man Lymphocytes # (Manual) Monocytes # (Manual) Eosinophils # (Manual) Basophils # (Manual) PT INR POC ABG pH ABG pH POC ABG pCO2 POC ABG pO2 ABG pO2 ABG O2 Saturation ABG Base Excess ABG Hemoglobin Oxyhemoglobin Sodium Potassium Chloride Carbon Dioxide BUN Creatinine Glucose POC Glucose 143 H 137 H 164 H Calcium Phosphorus Magnesium Iron TIBC Ferritin Total Bilirubin AST ALT Alkaline Phosphatase Total Creatine Kinase Troponin T C-Reactive Protein Total Protein Albumin Triglycerides HDL Cholesterol Miscellaneous Test Crossmatch 08/20/17 08/20/17 08/20/17 03:20 03:20 04:00 WBC 48.0 H* RBC 2.55 L Hgb 7.6 L Hct 23.4 L MCV MCH RDW 18.4 H Plt Count Lymph % (Auto) Grimes % (Auto) Grimes # Seg Neutrophils % Seg Neuts % (Manual) 90.0 H Lymphocytes % (Manual) 3.0 L Monocytes % (Manual) Nucleated RBC % Seg Neutrophils # Seg Neutrophils # Man 43.2 H Lymphocytes # (Manual) Monocytes # (Manual) 1.4 H Eosinophils # (Manual) 0.5 H Basophils # (Manual) PT INR POC ABG pH 7.499 H ABG pH POC ABG pCO2 29.1 L POC ABG pO2 ABG pO2 ABG O2 Saturation ABG Base Excess ABG Hemoglobin Oxyhemoglobin Sodium 135 L Potassium Chloride Carbon Dioxide BUN 28 H Creatinine 4.0 H Glucose 140 H POC Glucose Calcium 8.0 L Phosphorus 1.70 L Magnesium 1.60 L Iron TIBC Ferritin Total Bilirubin AST ALT Alkaline Phosphatase Total Creatine Kinase Troponin T C-Reactive Protein Total Protein Albumin Triglycerides HDL Cholesterol Miscellaneous Test Crossmatch 08/20/17 08/20/17 08/20/17 05:02 12:05 13:12 WBC RBC Hgb Hct MCV MCH RDW Plt Count Lymph % (Auto) Grimes % (Auto) Grimes # Seg Neutrophils % Seg Neuts % (Manual) Lymphocytes % (Manual) Monocytes % (Manual) Nucleated RBC % Seg Neutrophils # Seg Neutrophils # Man Lymphocytes # (Manual) Monocytes # (Manual) Eosinophils # (Manual) Basophils # (Manual) PT INR POC ABG pH 7.537 H ABG pH POC ABG pCO2 27.9 L POC ABG pO2 79 L ABG pO2 ABG O2 Saturation ABG Base Excess ABG Hemoglobin Oxyhemoglobin Sodium Potassium Chloride Carbon Dioxide BUN Creatinine Glucose POC Glucose 158 H 203 H Calcium Phosphorus Magnesium Iron TIBC Ferritin Total Bilirubin AST ALT Alkaline Phosphatase Total Creatine Kinase Troponin T C-Reactive Protein Total Protein Albumin Triglycerides HDL Cholesterol Miscellaneous Test Crossmatch 08/20/17 08/21/17 08/21/17 17:13 00:47 03:14 WBC RBC Hgb Hct MCV MCH RDW Plt Count Lymph % (Auto) Grimes % (Auto) Grimes # Seg Neutrophils % Seg Neuts % (Manual) Lymphocytes % (Manual) Monocytes % (Manual) Nucleated RBC % Seg Neutrophils # Seg Neutrophils # Man Lymphocytes # (Manual) Monocytes # (Manual) Eosinophils # (Manual) Basophils # (Manual) PT INR POC ABG pH 7.481 H ABG pH POC ABG pCO2 29.6 L POC ABG pO2 ABG pO2 ABG O2 Saturation ABG Base Excess ABG Hemoglobin Oxyhemoglobin Sodium Potassium Chloride Carbon Dioxide BUN Creatinine Glucose POC Glucose 188 H 109 H Calcium Phosphorus Magnesium Iron TIBC Ferritin Total Bilirubin AST ALT Alkaline Phosphatase Total Creatine Kinase Troponin T C-Reactive Protein Total Protein Albumin Triglycerides HDL Cholesterol Miscellaneous Test Crossmatch 08/21/17 08/21/17 08/21/17 05:05 06:50 06:50 WBC 44.7 H* RBC 2.41 L Hgb 7.1 L Hct 22.1 L MCV MCH RDW 18.3 H Plt Count Lymph % (Auto) Grimes % (Auto) Grimes # Seg Neutrophils % Seg Neuts % (Manual) 89.0 H Lymphocytes % (Manual) 0 L Monocytes % (Manual) Nucleated RBC % 1.0 H Seg Neutrophils # Seg Neutrophils # Man 39.8 H Lymphocytes # (Manual) 0.0 L Monocytes # (Manual) 1.3 H Eosinophils # (Manual) Basophils # (Manual) PT INR POC ABG pH ABG pH POC ABG pCO2 POC ABG pO2 ABG pO2 ABG O2 Saturation ABG Base Excess ABG Hemoglobin Oxyhemoglobin Sodium 135 L Potassium Chloride Carbon Dioxide BUN 39 H Creatinine 4.4 H Glucose 147 H POC Glucose 166 H Calcium 8.1 L Phosphorus Magnesium Iron TIBC Ferritin Total Bilirubin AST ALT < 5 L Alkaline Phosphatase 164 H Total Creatine Kinase Troponin T C-Reactive Protein Total Protein 4.7 L Albumin 1.4 L Triglycerides HDL Cholesterol Miscellaneous Test Crossmatch 08/21/17 08/21/17 08/21/17 08:00 12:21 17:02 WBC RBC Hgb Hct MCV MCH RDW Plt Count Lymph % (Auto) Grimes % (Auto) Grimes # Seg Neutrophils % Seg Neuts % (Manual) Lymphocytes % (Manual) Monocytes % (Manual) Nucleated RBC % Seg Neutrophils # Seg Neutrophils # Man Lymphocytes # (Manual) Monocytes # (Manual) Eosinophils # (Manual) Basophils # (Manual) PT INR POC ABG pH ABG pH POC ABG pCO2 POC ABG pO2 ABG pO2 ABG O2 Saturation ABG Base Excess ABG Hemoglobin Oxyhemoglobin Sodium Potassium Chloride Carbon Dioxide BUN Creatinine Glucose POC Glucose 147 H 135 H Calcium Phosphorus Magnesium Iron TIBC Ferritin Total Bilirubin AST ALT Alkaline Phosphatase Total Creatine Kinase Troponin T C-Reactive Protein Total Protein Albumin Triglycerides HDL Cholesterol Miscellaneous Test Crossmatch See Detail 08/21/17 08/22/17 08/22/17 23:38 03:40 03:40 WBC 42.5 H* RBC 2.88 L Hgb 8.5 L Hct 26.3 L MCV MCH RDW 17.9 H Plt Count Lymph % (Auto) Grimes % (Auto) Grimes # Seg Neutrophils % Seg Neuts % (Manual) Lymphocytes % (Manual) 5.0 L Monocytes % (Manual) Nucleated RBC % Seg Neutrophils # Seg Neutrophils # Man 19.6 H Lymphocytes # (Manual) Monocytes # (Manual) 2.6 H Eosinophils # (Manual) Basophils # (Manual) PT INR POC ABG pH ABG pH POC ABG pCO2 POC ABG pO2 ABG pO2 ABG O2 Saturation ABG Base Excess ABG Hemoglobin Oxyhemoglobin Sodium Potassium 3.3 L D Chloride Carbon Dioxide BUN 27 H Creatinine 2.9 H Glucose 144 H POC Glucose 251 H Calcium 8.0 L Phosphorus 2.40 L Magnesium Iron TIBC Ferritin Total Bilirubin AST ALT Alkaline Phosphatase Total Creatine Kinase Troponin T C-Reactive Protein Total Protein Albumin Triglycerides HDL Cholesterol Miscellaneous Test Crossmatch 08/22/17 08/22/17 08/22/17 06:37 08:50 11:25 WBC RBC Hgb Hct MCV MCH RDW Plt Count Lymph % (Auto) [place]imes % (Auto) Grimes # Seg Neutrophils % Seg Neuts % (Manual) Lymphocytes % (Manual) Monocytes % (Manual) Nucleated RBC % Seg Neutrophils # Seg Neutrophils # Man Lymphocytes # (Manual) Monocytes # (Manual) Eosinophils # (Manual) Basophils # (Manual) PT INR POC ABG pH ABG pH POC ABG pCO2 POC ABG pO2 ABG pO2 ABG O2 Saturation ABG Base Excess ABG Hemoglobin Oxyhemoglobin Sodium Potassium Chloride Carbon Dioxide BUN Creatinine Glucose POC Glucose 152 H 175 H Calcium Phosphorus Magnesium Iron TIBC Ferritin Total Bilirubin AST ALT Alkaline Phosphatase Total Creatine Kinase Troponin T C-Reactive Protein Total Protein Albumin Triglycerides HDL Cholesterol Miscellaneous Test Flexitest 1 H Crossmatch 08/22/17 08/22/17 08/22/17 16:25 17:56 23:03 WBC RBC Hgb Hct MCV MCH RDW Plt Count Lymph % (Auto) [place]imes % (Auto) Grimes # Seg Neutrophils % Seg Neuts % (Manual) Lymphocytes % (Manual) Monocytes % (Manual) Nucleated RBC % Seg Neutrophils # Seg Neutrophils # Man Lymphocytes # (Manual) Monocytes # (Manual) Eosinophils # (Manual) Basophils # (Manual) PT INR POC ABG pH ABG pH POC ABG pCO2 POC ABG pO2 ABG pO2 ABG O2 Saturation ABG Base Excess ABG Hemoglobin Oxyhemoglobin Sodium Potassium Chloride Carbon Dioxide BUN Creatinine Glucose POC Glucose 232 H 192 H Calcium Phosphorus Magnesium Iron TIBC Ferritin Total Bilirubin AST ALT Alkaline Phosphatase Total Creatine Kinase Troponin T C-Reactive Protein 30.70 H Total Protein Albumin Triglycerides HDL Cholesterol Miscellaneous Test Crossmatch 08/23/17 08/23/17 08/23/17 05:36 08:50 12:14 WBC RBC Hgb Hct MCV MCH RDW Plt Count Lymph % (Auto) [place]imes % (Auto) Grimes # Seg Neutrophils % Seg Neuts % (Manual) Lymphocytes % (Manual) Monocytes % (Manual) Nucleated RBC % Seg Neutrophils # Seg Neutrophils # Man Lymphocytes # (Manual) Monocytes # (Manual) Eosinophils # (Manual) Basophils # (Manual) PT INR POC ABG pH ABG pH POC ABG pCO2 POC ABG pO2 ABG pO2 ABG O2 Saturation ABG Base Excess ABG Hemoglobin Oxyhemoglobin Sodium Potassium Chloride 107.1 H Carbon Dioxide BUN 49 H Creatinine 3.3 H Glucose 172 H POC Glucose 206 H 238 H Calcium Phosphorus Magnesium 2.40 H Iron TIBC Ferritin Total Bilirubin AST ALT Alkaline Phosphatase Total Creatine Kinase Troponin T C-Reactive Protein Total Protein Albumin Triglycerides HDL Cholesterol Miscellaneous Test Crossmatch 08/23/17 08/23/17 08/24/17 17:21 23:13 04:00 WBC 34.2 H RBC 2.86 L Hgb 8.4 L Hct 25.9 L MCV MCH RDW 17.9 H Plt Count Lymph % (Auto) [place]imes % (Auto) [place]imes # Seg Neutrophils % Seg Neuts % (Manual) 85.0 H Lymphocytes % (Manual) 0.5 L Monocytes % (Manual) Nucleated RBC % 1.0 H Seg Neutrophils # Seg Neutrophils # Man 29.1 H Lymphocytes # (Manual) 0.2 L Monocytes # (Manual) 2.4 H Eosinophils # (Manual) Basophils # (Manual) PT INR POC ABG pH ABG pH POC ABG pCO2 POC ABG pO2 ABG pO2 ABG O2 Saturation ABG Base Excess ABG Hemoglobin Oxyhemoglobin Sodium Potassium Chloride Carbon Dioxide BUN Creatinine Glucose POC Glucose 226 H 183 H Calcium Phosphorus Magnesium Iron TIBC Ferritin Total Bilirubin AST ALT Alkaline Phosphatase Total Creatine Kinase Troponin T C-Reactive Protein Total Protein Albumin Triglycerides HDL Cholesterol Miscellaneous Test Crossmatch 08/24/17 08/24/17 08/24/17 05:06 09:30 12:04 WBC RBC Hgb Hct MCV MCH RDW Plt Count Lymph % (Auto) [place] % (Auto) Grimes # Seg Neutrophils % Seg Neuts % (Manual) Lymphocytes % (Manual) Monocytes % (Manual) Nucleated RBC % Seg Neutrophils # Seg Neutrophils # Man Lymphocytes # (Manual) Monocytes # (Manual) Eosinophils # (Manual) Basophils # (Manual) PT INR POC ABG pH ABG pH POC ABG pCO2 POC ABG pO2 ABG pO2 ABG O2 Saturation ABG Base Excess ABG Hemoglobin Oxyhemoglobin Sodium Potassium Chloride Carbon Dioxide BUN 46 H Creatinine 2.5 H Glucose 176 H POC Glucose 201 H 181 H Calcium Phosphorus Magnesium Iron TIBC Ferritin Total Bilirubin AST ALT Alkaline Phosphatase Total Creatine Kinase Troponin T C-Reactive Protein Total Protein Albumin Triglycerides HDL Cholesterol Miscellaneous Test Crossmatch 08/24/17 08/24/17 08/25/17 18:04 23:05 05:05 WBC RBC Hgb Hct MCV MCH RDW Plt Count Lymph % (Auto) [place]imes % (Auto) [place]imes # Seg Neutrophils % Seg Neuts % (Manual) Lymphocytes % (Manual) Monocytes % (Manual) Nucleated RBC % Seg Neutrophils # Seg Neutrophils # Man Lymphocytes # (Manual) Monocytes # (Manual) Eosinophils # (Manual) Basophils # (Manual) PT INR POC ABG pH ABG pH POC ABG pCO2 POC ABG pO2 ABG pO2 ABG O2 Saturation ABG Base Excess ABG Hemoglobin Oxyhemoglobin Sodium Potassium Chloride Carbon Dioxide BUN Creatinine Glucose POC Glucose 189 H 175 H 190 H Calcium Phosphorus Magnesium Iron TIBC Ferritin Total Bilirubin AST ALT Alkaline Phosphatase Total Creatine Kinase Troponin T C-Reactive Protein Total Protein Albumin Triglycerides HDL Cholesterol Miscellaneous Test Crossmatch 08/25/17 08/25/17 08/26/17 07:02 11:53 05:30 WBC 33.5 H RBC 2.47 L Hgb 7.3 L Hct 23.0 L MCV MCH RDW 21.3 H Plt Count Lymph % (Auto) [place]imes % (Auto) Grimes # Seg Neutrophils % Seg Neuts % (Manual) 92.0 H Lymphocytes % (Manual) 1.0 L Monocytes % (Manual) Nucleated RBC % Seg Neutrophils # Seg Neutrophils # Man 30.8 H Lymphocytes # (Manual) 0.3 L Monocytes # (Manual) Eosinophils # (Manual) Basophils # (Manual) PT INR POC ABG pH ABG pH POC ABG pCO2 POC ABG pO2 ABG pO2 ABG O2 Saturation ABG Base Excess ABG Hemoglobin Oxyhemoglobin Sodium Potassium Chloride Carbon Dioxide BUN 32 H Creatinine 5.0 H D Glucose 117 H POC Glucose 191 H Calcium 8.0 L Phosphorus Magnesium Iron TIBC Ferritin Total Bilirubin AST ALT Alkaline Phosphatase Total Creatine Kinase Troponin T C-Reactive Protein Total Protein Albumin Triglycerides HDL Cholesterol Miscellaneous Test Crossmatch 08/26/17 08/26/17 08/26/17 05:30 06:44 13:26 WBC RBC Hgb Hct MCV MCH RDW Plt Count Lymph % (Auto) [place] % (Auto) Grimes # Seg Neutrophils % Seg Neuts % (Manual) Lymphocytes % (Manual) Monocytes % (Manual) Nucleated RBC % Seg Neutrophils # Seg Neutrophils # Man Lymphocytes # (Manual) Monocytes # (Manual) Eosinophils # (Manual) Basophils # (Manual) PT INR POC ABG pH ABG pH POC ABG pCO2 POC ABG pO2 ABG pO2 ABG O2 Saturation ABG Base Excess ABG Hemoglobin Oxyhemoglobin Sodium Potassium 5.2 H Chloride Carbon Dioxide BUN 80 H Creatinine 3.4 H Glucose 193 H POC Glucose 232 H 207 H Calcium 8.3 L Phosphorus 6.80 H D Magnesium 2.60 H Iron TIBC Ferritin Total Bilirubin AST 135 H ALT Alkaline Phosphatase 211 H Total Creatine Kinase Troponin T C-Reactive Protein Total Protein 4.8 L Albumin 2.0 L Triglycerides HDL Cholesterol Miscellaneous Test Crossmatch 08/27/17 08/27/17 08/27/17 01:08 06:20 06:20 WBC 35.0 H RBC 2.75 L Hgb 8.4 L Hct 25.1 L MCV MCH RDW 21.8 H Plt Count Lymph % (Auto) [place] % (Auto) [place]imes # Seg Neutrophils % Seg Neuts % (Manual) Lymphocytes % (Manual) 4.5 L Monocytes % (Manual) Nucleated RBC % Seg Neutrophils # Seg Neutrophils # Man 31.9 H Lymphocytes # (Manual) Monocytes # (Manual) 1.2 H Eosinophils # (Manual) Basophils # (Manual) PT INR POC ABG pH ABG pH POC ABG pCO2 POC ABG pO2 ABG pO2 ABG O2 Saturation ABG Base Excess ABG Hemoglobin Oxyhemoglobin Sodium Potassium Chloride Carbon Dioxide BUN 61 H Creatinine 2.6 H Glucose 184 H POC Glucose 146 H Calcium Phosphorus 4.90 H D Magnesium Iron TIBC Ferritin Total Bilirubin AST ALT Alkaline Phosphatase Total Creatine Kinase Troponin T C-Reactive Protein Total Protein Albumin Triglycerides HDL Cholesterol Miscellaneous Test Crossmatch 08/27/17 08/27/17 08/27/17 07:01 09:17 12:52 WBC RBC Hgb Hct MCV MCH RDW Plt Count Lymph % (Auto) [place] % (Auto) [place]imes # Seg Neutrophils % Seg Neuts % (Manual) Lymphocytes % (Manual) Monocytes % (Manual) Nucleated RBC % Seg Neutrophils # Seg Neutrophils # Man Lymphocytes # (Manual) Monocytes # (Manual) Eosinophils # (Manual) Basophils # (Manual) PT INR POC ABG pH ABG pH POC ABG pCO2 POC ABG pO2 ABG pO2 ABG O2 Saturation ABG Base Excess ABG Hemoglobin Oxyhemoglobin Sodium Potassium Chloride Carbon Dioxide BUN Creatinine Glucose POC Glucose 165 H 198 H 218 H Calcium Phosphorus Magnesium Iron TIBC Ferritin Total Bilirubin AST ALT Alkaline Phosphatase Total Creatine Kinase Troponin T C-Reactive Protein Total Protein Albumin Triglycerides HDL Cholesterol Miscellaneous Test Crossmatch 08/27/17 08/28/17 08/28/17 17:27 02:13 06:46 WBC RBC Hgb Hct MCV MCH RDW Plt Count Lymph % (Auto) [place] % (Auto) [place]imes # Seg Neutrophils % Seg Neuts % (Manual) Lymphocytes % (Manual) Monocytes % (Manual) Nucleated RBC % Seg Neutrophils # Seg Neutrophils # Man Lymphocytes # (Manual) Monocytes # (Manual) Eosinophils # (Manual) Basophils # (Manual) PT INR POC ABG pH ABG pH POC ABG pCO2 POC ABG pO2 ABG pO2 ABG O2 Saturation ABG Base Excess ABG Hemoglobin Oxyhemoglobin Sodium Potassium Chloride Carbon Dioxide BUN Creatinine Glucose POC Glucose 151 H 155 H 230 H Calcium Phosphorus Magnesium Iron TIBC Ferritin Total Bilirubin AST ALT Alkaline Phosphatase Total Creatine Kinase Troponin T C-Reactive Protein Total Protein Albumin Triglycerides HDL Cholesterol Miscellaneous Test Crossmatch 08/28/17 08/28/17 08/28/17 06:53 06:53 08:19 WBC 31.1 H RBC 2.26 L Hgb 6.8 L Hct 20.9 L MCV MCH RDW 21.7 H Plt Count Lymph % (Auto) [place] % (Auto) [place]imes # Seg Neutrophils % Seg Neuts % (Manual) 83.0 H Lymphocytes % (Manual) 4.0 L Monocytes % (Manual) Nucleated RBC % Seg Neutrophils # Seg Neutrophils # Man 25.8 H Lymphocytes # (Manual) Monocytes # (Manual) Eosinophils # (Manual) Basophils # (Manual) PT INR POC ABG pH ABG pH POC ABG pCO2 POC ABG pO2 ABG pO2 ABG O2 Saturation ABG Base Excess ABG Hemoglobin Oxyhemoglobin Sodium Potassium Chloride Carbon Dioxide BUN 81 H Creatinine 3.4 H Glucose 218 H POC Glucose 239 H Calcium Phosphorus 4.90 H Magnesium Iron TIBC Ferritin Total Bilirubin AST ALT Alkaline Phosphatase Total Creatine Kinase Troponin T C-Reactive Protein Total Protein Albumin Triglycerides HDL Cholesterol Miscellaneous Test Crossmatch 08/28/17 08/28/17 08/28/17 11:56 13:05 13:29 WBC RBC Hgb Hct MCV MCH RDW Plt Count Lymph % (Auto) [place] % (Auto) [place]imes # Seg Neutrophils % Seg Neuts % (Manual) Lymphocytes % (Manual) Monocytes % (Manual) Nucleated RBC % Seg Neutrophils # Seg Neutrophils # Man Lymphocytes # (Manual) Monocytes # (Manual) Eosinophils # (Manual) Basophils # (Manual) PT 16.7 H INR 1.29 H POC ABG pH ABG pH POC ABG pCO2 POC ABG pO2 338 H ABG pO2 ABG O2 Saturation ABG Base Excess ABG Hemoglobin Oxyhemoglobin Sodium Potassium Chloride Carbon Dioxide BUN Creatinine Glucose POC Glucose Calcium Phosphorus Magnesium Iron TIBC Ferritin Total Bilirubin AST ALT Alkaline Phosphatase Total Creatine Kinase Troponin T C-Reactive Protein Total Protein Albumin Triglycerides HDL Cholesterol Miscellaneous Test Crossmatch See Detail 08/28/17 08/28/17 08/29/17 16:22 19:20 04:24 WBC RBC Hgb Hct MCV MCH RDW Plt Count Lymph % (Auto) [place] % (Auto) [place] # Seg Neutrophils % Seg Neuts % (Manual) Lymphocytes % (Manual) Monocytes % (Manual) Nucleated RBC % Seg Neutrophils # Seg Neutrophils # Man Lymphocytes # (Manual) Monocytes # (Manual) Eosinophils # (Manual) Basophils # (Manual) PT INR POC ABG pH 7.469 H ABG pH POC ABG pCO2 POC ABG pO2 240 H ABG pO2 ABG O2 Saturation ABG Base Excess ABG Hemoglobin Oxyhemoglobin Sodium Potassium Chloride Carbon Dioxide BUN Creatinine Glucose POC Glucose 209 H 195 H Calcium Phosphorus Magnesium Iron TIBC Ferritin Total Bilirubin AST ALT Alkaline Phosphatase Total Creatine Kinase Troponin T C-Reactive Protein Total Protein Albumin Triglycerides HDL Cholesterol Miscellaneous Test Crossmatch 08/29/17 08/29/17 08/29/17 04:30 04:30 12:07 WBC 44.9 H* RBC Hgb Hct MCV MCH RDW 23.1 H Plt Count Lymph % (Auto) [place] % (Auto) [place]imes # Seg Neutrophils % Seg Neuts % (Manual) 38.0 L Lymphocytes % (Manual) 10.0 L Monocytes % (Manual) 10.0 H Nucleated RBC % 6.0 H Seg Neutrophils # Seg Neutrophils # Man 17.1 H Lymphocytes # (Manual) Monocytes # (Manual) 4.5 H Eosinophils # (Manual) Basophils # (Manual) PT INR POC ABG pH ABG pH POC ABG pCO2 POC ABG pO2 ABG pO2 ABG O2 Saturation ABG Base Excess ABG Hemoglobin Oxyhemoglobin Sodium Potassium Chloride Carbon Dioxide BUN 61 H Creatinine 2.4 H Glucose 226 H POC Glucose 200 H Calcium Phosphorus Magnesium Iron TIBC Ferritin Total Bilirubin AST ALT Alkaline Phosphatase Total Creatine Kinase Troponin T C-Reactive Protein Total Protein Albumin Triglycerides HDL Cholesterol Miscellaneous Test Crossmatch 08/29/17 08/29/17 08/29/17 12:30 12:30 17:23 WBC RBC Hgb Hct MCV MCH RDW Plt Count Lymph % (Auto) [place] % (Auto) [place]imes # Seg Neutrophils % Seg Neuts % (Manual) Lymphocytes % (Manual) Monocytes % (Manual) Nucleated RBC % Seg Neutrophils # Seg Neutrophils # Man Lymphocytes # (Manual) Monocytes # (Manual) Eosinophils # (Manual) Basophils # (Manual) PT INR POC ABG pH ABG pH POC ABG pCO2 POC ABG pO2 ABG pO2 ABG O2 Saturation ABG Base Excess ABG Hemoglobin Oxyhemoglobin Sodium Potassium Chloride Carbon Dioxide BUN Creatinine Glucose POC Glucose 270 H Calcium Phosphorus Magnesium Iron TIBC Ferritin Total Bilirubin AST ALT Alkaline Phosphatase Total Creatine Kinase Troponin T C-Reactive Protein 19.10 H Total Protein Albumin Triglycerides HDL Cholesterol Miscellaneous Test Flexitest 1 H Crossmatch 08/30/17 08/30/17 08/30/17 00:10 01:30 03:31 WBC RBC Hgb Hct MCV MCH RDW Plt Count Lymph % (Auto) [place] % (Auto) [place] # Seg Neutrophils % Seg Neuts % (Manual) Lymphocytes % (Manual) Monocytes % (Manual) Nucleated RBC % Seg Neutrophils # Seg Neutrophils # Man Lymphocytes # (Manual) Monocytes # (Manual) Eosinophils # (Manual) Basophils # (Manual) PT INR POC ABG pH 7.168 L 7.335 L ABG pH POC ABG pCO2 72.8 H POC ABG pO2 257 H 117 H ABG pO2 ABG O2 Saturation ABG Base Excess ABG Hemoglobin Oxyhemoglobin Sodium Potassium Chloride Carbon Dioxide BUN Creatinine Glucose POC Glucose 245 H Calcium Phosphorus Magnesium Iron TIBC Ferritin Total Bilirubin AST ALT Alkaline Phosphatase Total Creatine Kinase Troponin T C-Reactive Protein Total Protein Albumin Triglycerides HDL Cholesterol Miscellaneous Test Crossmatch 08/30/17 08/30/17 08/30/17 05:20 05:20 05:20 WBC 40.9 H* RBC 3.64 L Hgb Hct MCV MCH RDW 24.3 H Plt Count Lymph % (Auto) [place] % (Auto) [place] # Seg Neutrophils % Seg Neuts % (Manual) 80.0 H Lymphocytes % (Manual) 3.0 L Monocytes % (Manual) Nucleated RBC % 1.0 H Seg Neutrophils # Seg Neutrophils # Man 32.7 H Lymphocytes # (Manual) Monocytes # (Manual) Eosinophils # (Manual) Basophils # (Manual) PT INR POC ABG pH ABG pH POC ABG pCO2 POC ABG pO2 ABG pO2 ABG O2 Saturation ABG Base Excess ABG Hemoglobin Oxyhemoglobin Sodium Potassium Chloride Carbon Dioxide BUN 83 H Creatinine 2.9 H Glucose 334 H POC Glucose 309 H Calcium Phosphorus Magnesium Iron TIBC Ferritin Total Bilirubin AST ALT Alkaline Phosphatase Total Creatine Kinase Troponin T C-Reactive Protein Total Protein Albumin Triglycerides HDL Cholesterol Miscellaneous Test Crossmatch 08/30/17 08/30/17 08/31/17 12:18 17:36 00:17 WBC RBC Hgb Hct MCV MCH RDW Plt Count Lymph % (Auto) [place] % (Auto) [place] # Seg Neutrophils % Seg Neuts % (Manual) Lymphocytes % (Manual) Monocytes % (Manual) Nucleated RBC % Seg Neutrophils # Seg Neutrophils # Man Lymphocytes # (Manual) Monocytes # (Manual) Eosinophils # (Manual) Basophils # (Manual) PT INR POC ABG pH ABG pH POC ABG pCO2 POC ABG pO2 ABG pO2 ABG O2 Saturation ABG Base Excess ABG Hemoglobin Oxyhemoglobin Sodium Potassium Chloride Carbon Dioxide BUN Creatinine Glucose POC Glucose 273 H 293 H 360 H Calcium Phosphorus Magnesium Iron TIBC Ferritin Total Bilirubin AST ALT Alkaline Phosphatase Total Creatine Kinase Troponin T C-Reactive Protein Total Protein Albumin Triglycerides HDL Cholesterol Miscellaneous Test Crossmatch 08/31/17 08/31/17 08/31/17 05:30 05:30 05:32 WBC 29.9 H RBC 2.89 L Hgb 8.2 L Hct 24.7 L D MCV MCH RDW 24.4 H Plt Count Lymph % (Auto) [place] % (Auto) [place] # Seg Neutrophils % Seg Neuts % (Manual) Lymphocytes % (Manual) 2.0 L Monocytes % (Manual) Nucleated RBC % 2.0 H Seg Neutrophils # Seg Neutrophils # Man 18.5 H Lymphocytes # (Manual) 0.6 L Monocytes # (Manual) 0.9 H Eosinophils # (Manual) Basophils # (Manual) PT INR POC ABG pH ABG pH POC ABG pCO2 POC ABG pO2 ABG pO2 ABG O2 Saturation ABG Base Excess ABG Hemoglobin Oxyhemoglobin Sodium Potassium Chloride Carbon Dioxide BUN 62 H Creatinine 2.2 H Glucose 245 H POC Glucose 257 H Calcium Phosphorus 2.10 L D Magnesium 1.60 L Iron TIBC Ferritin Total Bilirubin AST ALT Alkaline Phosphatase Total Creatine Kinase Troponin T C-Reactive Protein Total Protein Albumin Triglycerides HDL Cholesterol Miscellaneous Test Crossmatch 08/31/17 08/31/17 08/31/17 11:56 12:05 18:14 WBC 32.5 H RBC 3.19 L Hgb 8.8 L Hct 27.9 L MCV MCH RDW 24.9 H Plt Count Lymph % (Auto) [place] % (Auto) [place]imes # Seg Neutrophils % Seg Neuts % (Manual) Lymphocytes % (Manual) 1.0 L Monocytes % (Manual) 12.0 H Nucleated RBC % 1.0 H Seg Neutrophils # Seg Neutrophils # Man 13.3 H Lymphocytes # (Manual) 0.3 L Monocytes # (Manual) 3.9 H Eosinophils # (Manual) Basophils # (Manual) PT INR POC ABG pH ABG pH POC ABG pCO2 POC ABG pO2 ABG pO2 ABG O2 Saturation ABG Base Excess ABG Hemoglobin Oxyhemoglobin Sodium Potassium Chloride Carbon Dioxide BUN Creatinine Glucose POC Glucose 245 H Calcium Phosphorus Magnesium Iron TIBC Ferritin Total Bilirubin AST ALT Alkaline Phosphatase Total Creatine Kinase Troponin T C-Reactive Protein Total Protein Albumin Triglycerides HDL Cholesterol Miscellaneous Test Crossmatch See Detail 08/31/17 08/31/17 08/31/17 18:14 18:15 18:22 WBC RBC Hgb Hct MCV MCH RDW Plt Count Lymph % (Auto) [place] % (Auto) [place]imes # Seg Neutrophils % Seg Neuts % (Manual) Lymphocytes % (Manual) Monocytes % (Manual) Nucleated RBC % Seg Neutrophils # Seg Neutrophils # Man Lymphocytes # (Manual) Monocytes # (Manual) Eosinophils # (Manual) Basophils # (Manual) PT 15.1 H INR POC ABG pH ABG pH POC ABG pCO2 POC ABG pO2 ABG pO2 ABG O2 Saturation ABG Base Excess ABG Hemoglobin Oxyhemoglobin Sodium 136 L Potassium Chloride Carbon Dioxide 21 L BUN 69 H Creatinine 2.3 H Glucose 227 H POC Glucose 240 H Calcium Phosphorus 2.40 L Magnesium 1.50 L Iron TIBC Ferritin Total Bilirubin AST 143 H ALT 114 H Alkaline Phosphatase 267 H Total Creatine Kinase Troponin T C-Reactive Protein Total Protein 4.1 L Albumin 1.8 L Triglycerides HDL Cholesterol Miscellaneous Test Crossmatch 08/31/17 09/01/17 09/01/17 23:53 05:00 05:00 WBC 33.9 H RBC 2.85 L Hgb 7.8 L Hct 24.8 L MCV MCH 27 L RDW 23.9 H Plt Count Lymph % (Auto) [place] % (Auto) [place]imes # Seg Neutrophils % Seg Neuts % (Manual) Lymphocytes % (Manual) 5.0 L Monocytes % (Manual) Nucleated RBC % Seg Neutrophils # Seg Neutrophils # Man 23.1 H Lymphocytes # (Manual) Monocytes # (Manual) Eosinophils # (Manual) Basophils # (Manual) PT INR POC ABG pH ABG pH POC ABG pCO2 POC ABG pO2 ABG pO2 ABG O2 Saturation ABG Base Excess ABG Hemoglobin Oxyhemoglobin Sodium Potassium Chloride Carbon Dioxide BUN 51 H Creatinine 1.8 H Glucose 195 H POC Glucose 301 H Calcium Phosphorus 1.70 L D Magnesium 1.60 L Iron TIBC Ferritin Total Bilirubin AST 80 H ALT 82 H Alkaline Phosphatase 243 H Total Creatine Kinase Troponin T C-Reactive Protein Total Protein 4.2 L Albumin 1.7 L Triglycerides HDL Cholesterol Miscellaneous Test Crossmatch 09/01/17 09/01/17 09/01/17 05:20 05:47 11:37 WBC RBC Hgb Hct MCV MCH RDW Plt Count Lymph % (Auto) [place] % (Auto) [place]imes # Seg Neutrophils % Seg Neuts % (Manual) Lymphocytes % (Manual) Monocytes % (Manual) Nucleated RBC % Seg Neutrophils # Seg Neutrophils # Man Lymphocytes # (Manual) Monocytes # (Manual) Eosinophils # (Manual) Basophils # (Manual) PT INR POC ABG pH ABG pH 7.348 L POC ABG pCO2 POC ABG pO2 ABG pO2 70.2 L ABG O2 Saturation ABG Base Excess ABG Hemoglobin 7.5 L Oxyhemoglobin Sodium Potassium Chloride Carbon Dioxide BUN Creatinine Glucose POC Glucose 230 H 254 H Calcium Phosphorus Magnesium Iron TIBC Ferritin Total Bilirubin AST ALT Alkaline Phosphatase Total Creatine Kinase Troponin T C-Reactive Protein Total Protein Albumin Triglycerides HDL Cholesterol Miscellaneous Test Crossmatch 09/01/17 09/01/17 09/02/17 17:39 23:14 04:55 WBC RBC Hgb Hct MCV MCH RDW Plt Count Lymph % (Auto) [place] % (Auto) [place]imes # Seg Neutrophils % Seg Neuts % (Manual) Lymphocytes % (Manual) Monocytes % (Manual) Nucleated RBC % Seg Neutrophils # Seg Neutrophils # Man Lymphocytes # (Manual) Monocytes # (Manual) Eosinophils # (Manual) Basophils # (Manual) PT INR POC ABG pH ABG pH POC ABG pCO2 POC ABG pO2 ABG pO2 124.8 H ABG O2 Saturation ABG Base Excess -2.9 L ABG Hemoglobin 5.8 L Oxyhemoglobin Sodium Potassium Chloride Carbon Dioxide BUN Creatinine Glucose POC Glucose 297 H 291 H Calcium Phosphorus Magnesium Iron TIBC Ferritin Total Bilirubin AST ALT Alkaline Phosphatase Total Creatine Kinase Troponin T C-Reactive Protein Total Protein Albumin Triglycerides HDL Cholesterol Miscellaneous Test Crossmatch 09/02/17 09/02/17 09/02/17 05:31 06:10 11:58 WBC RBC Hgb Hct MCV MCH RDW Plt Count Lymph % (Auto) [place]imes % (Auto) [place]imes # Seg Neutrophils % Seg Neuts % (Manual) Lymphocytes % (Manual) Monocytes % (Manual) Nucleated RBC % Seg Neutrophils # Seg Neutrophils # Man Lymphocytes # (Manual) Monocytes # (Manual) Eosinophils # (Manual) Basophils # (Manual) PT INR POC ABG pH ABG pH POC ABG pCO2 POC ABG pO2 ABG pO2 ABG O2 Saturation ABG Base Excess ABG Hemoglobin Oxyhemoglobin Sodium Potassium Chloride Carbon Dioxide BUN 68 H Creatinine 2.2 H Glucose 369 H POC Glucose 245 H 333 H Calcium 8.2 L Phosphorus Magnesium Iron TIBC Ferritin Total Bilirubin AST ALT Alkaline Phosphatase Total Creatine Kinase Troponin T C-Reactive Protein Total Protein Albumin Triglycerides HDL Cholesterol Miscellaneous Test Crossmatch 09/02/17 09/02/17 09/03/17 15:37 23:50 04:00 WBC RBC Hgb Hct MCV MCH RDW Plt Count Lymph % (Auto) [place] % (Auto) [place]imes # Seg Neutrophils % Seg Neuts % (Manual) Lymphocytes % (Manual) Monocytes % (Manual) Nucleated RBC % Seg Neutrophils # Seg Neutrophils # Man Lymphocytes # (Manual) Monocytes # (Manual) Eosinophils # (Manual) Basophils # (Manual) PT INR POC ABG pH ABG pH POC ABG pCO2 POC ABG pO2 ABG pO2 ABG O2 Saturation ABG Base Excess ABG Hemoglobin Oxyhemoglobin Sodium Potassium Chloride Carbon Dioxide BUN 59 H Creatinine 1.9 H Glucose 231 H POC Glucose 314 H 240 H Calcium 8.0 L Phosphorus Magnesium Iron TIBC Ferritin Total Bilirubin AST ALT Alkaline Phosphatase 265 H Total Creatine Kinase Troponin T C-Reactive Protein Total Protein 4.4 L Albumin 1.7 L Triglycerides 180 H HDL Cholesterol Miscellaneous Test Crossmatch 09/03/17 09/03/17 09/03/17 05:00 05:32 11:52 WBC 41.5 H* RBC 2.46 L Hgb 6.9 L Hct 21.3 L MCV MCH RDW 24.9 H Plt Count Lymph % (Auto) [place] % (Auto) [place]imes # Seg Neutrophils % Seg Neuts % (Manual) Lymphocytes % (Manual) 3.0 L Monocytes % (Manual) 9.5 H Nucleated RBC % 1.5 H Seg Neutrophils # Seg Neutrophils # Man 28.8 H Lymphocytes # (Manual) Monocytes # (Manual) 3.9 H Eosinophils # (Manual) Basophils # (Manual) PT INR POC ABG pH ABG pH POC ABG pCO2 POC ABG pO2 ABG pO2 ABG O2 Saturation ABG Base Excess ABG Hemoglobin Oxyhemoglobin Sodium Potassium Chloride Carbon Dioxide BUN Creatinine Glucose POC Glucose 188 H 285 H Calcium Phosphorus Magnesium Iron TIBC Ferritin Total Bilirubin AST ALT Alkaline Phosphatase Total Creatine Kinase Troponin T C-Reactive Protein Total Protein Albumin Triglycerides HDL Cholesterol Miscellaneous Test Crossmatch 09/03/17 09/03/17 09/03/17 16:55 17:44 23:56 WBC RBC Hgb Hct MCV MCH RDW Plt Count Lymph % (Auto) Grimes % (Auto) Grimes # Seg Neutrophils % Seg Neuts % (Manual) Lymphocytes % (Manual) Monocytes % (Manual) Nucleated RBC % Seg Neutrophils # Seg Neutrophils # Man Lymphocytes # (Manual) Monocytes # (Manual) Eosinophils # (Manual) Basophils # (Manual) PT INR POC ABG pH ABG pH POC ABG pCO2 POC ABG pO2 ABG pO2 ABG O2 Saturation ABG Base Excess ABG Hemoglobin Oxyhemoglobin Sodium Potassium Chloride Carbon Dioxide BUN Creatinine Glucose POC Glucose 217 H 193 H Calcium Phosphorus Magnesium Iron TIBC Ferritin Total Bilirubin AST ALT Alkaline Phosphatase Total Creatine Kinase Troponin T C-Reactive Protein Total Protein Albumin Triglycerides HDL Cholesterol Miscellaneous Test Crossmatch See Detail 09/03/17 09/04/17 09/04/17 Unknown 03:47 04:32 WBC 44.7 H* RBC 3.12 L Hgb 8.7 L Hct 26.7 L MCV MCH RDW 23.5 H Plt Count Lymph % (Auto) [place]imes % (Auto) Grimes # Seg Neutrophils % Seg Neuts % (Manual) Lymphocytes % (Manual) 4.0 L Monocytes % (Manual) Nucleated RBC % 2.0 H Seg Neutrophils # Seg Neutrophils # Man 30.8 H Lymphocytes # (Manual) Monocytes # (Manual) 2.2 H Eosinophils # (Manual) Basophils # (Manual) PT INR POC ABG pH ABG pH POC ABG pCO2 POC ABG pO2 ABG pO2 133.4 H 135.0 H ABG O2 Saturation ABG Base Excess -2.5 L ABG Hemoglobin 5.8 L 7.9 L Oxyhemoglobin Sodium Potassium Chloride Carbon Dioxide BUN Creatinine Glucose POC Glucose Calcium Phosphorus Magnesium Iron TIBC Ferritin Total Bilirubin AST ALT Alkaline Phosphatase Total Creatine Kinase Troponin T C-Reactive Protein Total Protein Albumin Triglycerides HDL Cholesterol Miscellaneous Test Crossmatch 09/04/17 09/04/17 09/04/17 04:32 05:48 10:43 WBC RBC Hgb Hct MCV MCH RDW Plt Count Lymph % (Auto) [place] % (Auto) [place]imes # Seg Neutrophils % Seg Neuts % (Manual) Lymphocytes % (Manual) Monocytes % (Manual) Nucleated RBC % Seg Neutrophils # Seg Neutrophils # Man Lymphocytes # (Manual) Monocytes # (Manual) Eosinophils # (Manual) Basophils # (Manual) PT INR POC ABG pH ABG pH POC ABG pCO2 POC ABG pO2 ABG pO2 ABG O2 Saturation ABG Base Excess ABG Hemoglobin Oxyhemoglobin Sodium 136 L Potassium 5.2 H D Chloride 94.2 L Carbon Dioxide BUN 71 H Creatinine 2.3 H Glucose 235 H POC Glucose 329 H Calcium 8.3 L Phosphorus Magnesium Iron TIBC Ferritin Total Bilirubin AST ALT Alkaline Phosphatase Total Creatine Kinase Troponin T C-Reactive Protein Total Protein Albumin Triglycerides HDL Cholesterol Miscellaneous Test Flexitest 1 H Crossmatch 09/04/17 09/04/17 09/05/17 12:38 17:30 00:15 WBC RBC Hgb Hct MCV MCH RDW Plt Count Lymph % (Auto) [place]imes % (Auto) [place]imes # Seg Neutrophils % Seg Neuts % (Manual) Lymphocytes % (Manual) Monocytes % (Manual) Nucleated RBC % Seg Neutrophils # Seg Neutrophils # Man Lymphocytes # (Manual) Monocytes # (Manual) Eosinophils # (Manual) Basophils # (Manual) PT INR POC ABG pH ABG pH POC ABG pCO2 POC ABG pO2 ABG pO2 ABG O2 Saturation ABG Base Excess ABG Hemoglobin Oxyhemoglobin Sodium Potassium Chloride Carbon Dioxide BUN Creatinine Glucose POC Glucose 444 H 331 H 362 H Calcium Phosphorus Magnesium Iron TIBC Ferritin Total Bilirubin AST ALT Alkaline Phosphatase Total Creatine Kinase Troponin T C-Reactive Protein Total Protein Albumin Triglycerides HDL Cholesterol Miscellaneous Test Crossmatch 09/05/17 09/05/17 09/05/17 03:55 03:55 12:12 WBC 35.3 H RBC 2.87 L Hgb 8.1 L Hct 24.6 L MCV MCH RDW 23.3 H Plt Count Lymph % (Auto) [place]imes % (Auto) Grimes # Seg Neutrophils % Seg Neuts % (Manual) 89.5 H Lymphocytes % (Manual) 3.0 L Monocytes % (Manual) Nucleated RBC % 2.5 H Seg Neutrophils # Seg Neutrophils # Man 31.6 H Lymphocytes # (Manual) 1.1 L Monocytes # (Manual) Eosinophils # (Manual) Basophils # (Manual) PT INR POC ABG pH ABG pH POC ABG pCO2 POC ABG pO2 ABG pO2 ABG O2 Saturation ABG Base Excess ABG Hemoglobin Oxyhemoglobin Sodium 136 L Potassium Chloride 94.7 L Carbon Dioxide BUN 55 H Creatinine 1.8 H Glucose 193 H POC Glucose 344 H Calcium 8.1 L Phosphorus Magnesium Iron TIBC Ferritin Total Bilirubin AST ALT Alkaline Phosphatase Total Creatine Kinase Troponin T C-Reactive Protein Total Protein Albumin Triglycerides HDL Cholesterol Miscellaneous Test Crossmatch 09/05/17 09/05/17 09/05/17 14:32 15:32 16:41 WBC RBC Hgb Hct MCV MCH RDW Plt Count Lymph % (Auto) [place] % (Auto) Grimes # Seg Neutrophils % Seg Neuts % (Manual) Lymphocytes % (Manual) Monocytes % (Manual) Nucleated RBC % Seg Neutrophils # Seg Neutrophils # Man Lymphocytes # (Manual) Monocytes # (Manual) Eosinophils # (Manual) Basophils # (Manual) PT INR POC ABG pH ABG pH POC ABG pCO2 POC ABG pO2 ABG pO2 ABG O2 Saturation ABG Base Excess ABG Hemoglobin Oxyhemoglobin Sodium Potassium Chloride Carbon Dioxide BUN Creatinine Glucose POC Glucose 265 H 145 H 188 H Calcium Phosphorus Magnesium Iron TIBC Ferritin Total Bilirubin AST ALT Alkaline Phosphatase Total Creatine Kinase Troponin T C-Reactive Protein Total Protein Albumin Triglycerides HDL Cholesterol Miscellaneous Test Crossmatch 09/05/17 09/05/17 09/05/17 17:28 18:38 20:10 WBC RBC Hgb Hct MCV MCH RDW Plt Count Lymph % (Auto) [place] % (Auto) Grimes # Seg Neutrophils % Seg Neuts % (Manual) Lymphocytes % (Manual) Monocytes % (Manual) Nucleated RBC % Seg Neutrophils # Seg Neutrophils # Man Lymphocytes # (Manual) Monocytes # (Manual) Eosinophils # (Manual) Basophils # (Manual) PT INR POC ABG pH ABG pH POC ABG pCO2 POC ABG pO2 ABG pO2 ABG O2 Saturation ABG Base Excess ABG Hemoglobin Oxyhemoglobin Sodium Potassium Chloride Carbon Dioxide BUN Creatinine Glucose POC Glucose 246 H 271 H 165 H Calcium Phosphorus Magnesium Iron TIBC Ferritin Total Bilirubin AST ALT Alkaline Phosphatase Total Creatine Kinase Troponin T C-Reactive Protein Total Protein Albumin Triglycerides HDL Cholesterol Miscellaneous Test Crossmatch 09/05/17 09/05/17 09/06/17 21:06 23:07 00:10 WBC RBC Hgb Hct MCV MCH RDW Plt Count Lymph % (Auto) [place] % (Auto) [place]imes # Seg Neutrophils % Seg Neuts % (Manual) Lymphocytes % (Manual) Monocytes % (Manual) Nucleated RBC % Seg Neutrophils # Seg Neutrophils # Man Lymphocytes # (Manual) Monocytes # (Manual) Eosinophils # (Manual) Basophils # (Manual) PT INR POC ABG pH ABG pH POC ABG pCO2 POC ABG pO2 ABG pO2 ABG O2 Saturation ABG Base Excess ABG Hemoglobin Oxyhemoglobin Sodium Potassium Chloride Carbon Dioxide BUN Creatinine Glucose POC Glucose 134 H 135 H 147 H Calcium Phosphorus Magnesium Iron TIBC Ferritin Total Bilirubin AST ALT Alkaline Phosphatase Total Creatine Kinase Troponin T C-Reactive Protein Total Protein Albumin Triglycerides HDL Cholesterol Miscellaneous Test Crossmatch 09/06/17 09/06/17 09/06/17 01:08 02:01 03:08 WBC RBC Hgb Hct MCV MCH RDW Plt Count Lymph % (Auto) [place] % (Auto) [place]imes # Seg Neutrophils % Seg Neuts % (Manual) Lymphocytes % (Manual) Monocytes % (Manual) Nucleated RBC % Seg Neutrophils # Seg Neutrophils # Man Lymphocytes # (Manual) Monocytes # (Manual) Eosinophils # (Manual) Basophils # (Manual) PT INR POC ABG pH ABG pH POC ABG pCO2 POC ABG pO2 ABG pO2 ABG O2 Saturation ABG Base Excess ABG Hemoglobin Oxyhemoglobin Sodium Potassium Chloride Carbon Dioxide BUN Creatinine Glucose POC Glucose 133 H 146 H 135 H Calcium Phosphorus Magnesium Iron TIBC Ferritin Total Bilirubin AST ALT Alkaline Phosphatase Total Creatine Kinase Troponin T C-Reactive Protein Total Protein Albumin Triglycerides HDL Cholesterol Miscellaneous Test Crossmatch 09/06/17 09/06/17 09/06/17 05:30 05:30 05:30 WBC 38.6 H RBC 2.95 L Hgb 8.3 L Hct 25.3 L MCV MCH RDW 22.2 H Plt Count Lymph % (Auto) [place] % (Auto) [place]imes # Seg Neutrophils % Seg Neuts % (Manual) Lymphocytes % (Manual) 2.0 L Monocytes % (Manual) Nucleated RBC % 5.0 H Seg Neutrophils # Seg Neutrophils # Man 25.9 H Lymphocytes # (Manual) 0.8 L Monocytes # (Manual) 1.9 H Eosinophils # (Manual) Basophils # (Manual) PT INR POC ABG pH ABG pH POC ABG pCO2 POC ABG pO2 ABG pO2 ABG O2 Saturation ABG Base Excess ABG Hemoglobin Oxyhemoglobin Sodium 135 L Potassium Chloride 93.5 L Carbon Dioxide BUN 82 H Creatinine 2.3 H Glucose 148 H POC Glucose Calcium Phosphorus Magnesium Iron TIBC Ferritin Total Bilirubin AST ALT Alkaline Phosphatase Total Creatine Kinase Troponin T C-Reactive Protein 2.80 H Total Protein Albumin Triglycerides HDL Cholesterol Miscellaneous Test Crossmatch 09/06/17 09/06/17 09/06/17 05:48 08:04 09:06 WBC RBC Hgb Hct MCV MCH RDW Plt Count Lymph % (Auto) [place] % (Auto) [place] # Seg Neutrophils % Seg Neuts % (Manual) Lymphocytes % (Manual) Monocytes % (Manual) Nucleated RBC % Seg Neutrophils # Seg Neutrophils # Man Lymphocytes # (Manual) Monocytes # (Manual) Eosinophils # (Manual) Basophils # (Manual) PT INR POC ABG pH ABG pH POC ABG pCO2 POC ABG pO2 ABG pO2 ABG O2 Saturation ABG Base Excess ABG Hemoglobin Oxyhemoglobin Sodium Potassium Chloride Carbon Dioxide BUN Creatinine Glucose POC Glucose 152 H 164 H 172 H Calcium Phosphorus Magnesium Iron TIBC Ferritin Total Bilirubin AST ALT Alkaline Phosphatase Total Creatine Kinase Troponin T C-Reactive Protein Total Protein Albumin Triglycerides HDL Cholesterol Miscellaneous Test Crossmatch 09/06/17 09/06/17 09/06/17 09:57 10:19 10:57 WBC RBC Hgb Hct MCV MCH RDW Plt Count Lymph % (Auto) [place] % (Auto) [place]imes # Seg Neutrophils % Seg Neuts % (Manual) Lymphocytes % (Manual) Monocytes % (Manual) Nucleated RBC % Seg Neutrophils # Seg Neutrophils # Man Lymphocytes # (Manual) Monocytes # (Manual) Eosinophils # (Manual) Basophils # (Manual) PT INR POC ABG pH ABG pH POC ABG pCO2 POC ABG pO2 ABG pO2 ABG O2 Saturation ABG Base Excess ABG Hemoglobin Oxyhemoglobin Sodium Potassium Chloride Carbon Dioxide BUN Creatinine Glucose POC Glucose 186 H 162 H Calcium Phosphorus Magnesium Iron TIBC Ferritin Total Bilirubin AST ALT Alkaline Phosphatase Total Creatine Kinase Troponin T C-Reactive Protein Total Protein Albumin Triglycerides HDL Cholesterol Miscellaneous Test Flexitest 1 H Crossmatch 09/06/17 09/06/17 09/06/17 13:12 13:40 17:36 WBC RBC Hgb 8.9 L Hct 28.5 L MCV MCH RDW Plt Count Lymph % (Auto) [place] % (Auto) [place]imes # Seg Neutrophils % Seg Neuts % (Manual) Lymphocytes % (Manual) Monocytes % (Manual) Nucleated RBC % Seg Neutrophils # Seg Neutrophils # Man Lymphocytes # (Manual) Monocytes # (Manual) Eosinophils # (Manual) Basophils # (Manual) PT INR POC ABG pH ABG pH POC ABG pCO2 POC ABG pO2 ABG pO2 ABG O2 Saturation ABG Base Excess ABG Hemoglobin Oxyhemoglobin Sodium Potassium Chloride Carbon Dioxide BUN Creatinine Glucose POC Glucose 166 H 161 H Calcium Phosphorus Magnesium Iron TIBC Ferritin Total Bilirubin AST ALT Alkaline Phosphatase Total Creatine Kinase Troponin T C-Reactive Protein Total Protein Albumin Triglycerides HDL Cholesterol Miscellaneous Test Crossmatch 09/07/17 09/07/17 09/07/17 00:13 03:50 03:50 WBC 47.0 H* RBC 2.81 L Hgb 8.1 L Hct 24.1 L MCV MCH RDW 22.5 H Plt Count Lymph % (Auto) [place] % (Auto) [place] # Seg Neutrophils % Seg Neuts % (Manual) Lymphocytes % (Manual) 9.0 L Monocytes % (Manual) Nucleated RBC % 6.0 H Seg Neutrophils # Seg Neutrophils # Man 27.3 H Lymphocytes # (Manual) Monocytes # (Manual) 0.9 H Eosinophils # (Manual) 1.9 H Basophils # (Manual) PT INR POC ABG pH ABG pH POC ABG pCO2 POC ABG pO2 ABG pO2 ABG O2 Saturation ABG Base Excess ABG Hemoglobin Oxyhemoglobin Sodium 136 L Potassium Chloride 96.3 L Carbon Dioxide BUN 61 H Creatinine 1.7 H Glucose 132 H POC Glucose 183 H Calcium 7.8 L Phosphorus Magnesium Iron TIBC Ferritin Total Bilirubin AST ALT Alkaline Phosphatase Total Creatine Kinase Troponin T C-Reactive Protein Total Protein Albumin Triglycerides HDL Cholesterol Miscellaneous Test Crossmatch 09/07/17 09/07/17 09/07/17 05:12 05:23 11:48 WBC RBC Hgb Hct MCV MCH RDW Plt Count Lymph % (Auto) [place] % (Auto) [place] # Seg Neutrophils % Seg Neuts % (Manual) Lymphocytes % (Manual) Monocytes % (Manual) Nucleated RBC % Seg Neutrophils # Seg Neutrophils # Man Lymphocytes # (Manual) Monocytes # (Manual) Eosinophils # (Manual) Basophils # (Manual) PT INR POC ABG pH ABG pH POC ABG pCO2 POC ABG pO2 ABG pO2 ABG O2 Saturation ABG Base Excess ABG Hemoglobin 7.7 L Oxyhemoglobin 94.8 L Sodium Potassium Chloride Carbon Dioxide BUN Creatinine Glucose POC Glucose 162 H 200 H Calcium Phosphorus Magnesium Iron TIBC Ferritin Total Bilirubin AST ALT Alkaline Phosphatase Total Creatine Kinase Troponin T C-Reactive Protein Total Protein Albumin Triglycerides HDL Cholesterol Miscellaneous Test Crossmatch 09/07/17 09/07/17 09/08/17 17:07 18:21 00:06 WBC RBC Hgb Hct MCV MCH RDW Plt Count Lymph % (Auto) [place] % (Auto) [place] # Seg Neutrophils % Seg Neuts % (Manual) Lymphocytes % (Manual) Monocytes % (Manual) Nucleated RBC % Seg Neutrophils # Seg Neutrophils # Man Lymphocytes # (Manual) Monocytes # (Manual) Eosinophils # (Manual) Basophils # (Manual) PT INR POC ABG pH ABG pH POC ABG pCO2 POC ABG pO2 ABG pO2 ABG O2 Saturation ABG Base Excess ABG Hemoglobin Oxyhemoglobin Sodium Potassium Chloride Carbon Dioxide BUN Creatinine Glucose POC Glucose 181 H 168 H Calcium Phosphorus Magnesium Iron TIBC Ferritin Total Bilirubin AST ALT Alkaline Phosphatase Total Creatine Kinase Troponin T C-Reactive Protein Total Protein Albumin Triglycerides HDL Cholesterol Miscellaneous Test Crossmatch See Detail 09/08/17 09/08/17 09/08/17 04:05 04:05 04:41 WBC 49.7 H* RBC 2.58 L Hgb 7.3 L Hct 22.7 L MCV MCH RDW 22.5 H Plt Count Lymph % (Auto) [place] % (Auto) [place]imes # Seg Neutrophils % Seg Neuts % (Manual) 90.5 H Lymphocytes % (Manual) 1.5 L Monocytes % (Manual) Nucleated RBC % Seg Neutrophils # Seg Neutrophils # Man 45.0 H Lymphocytes # (Manual) 0.7 L Monocytes # (Manual) 1.7 H Eosinophils # (Manual) Basophils # (Manual) PT INR POC ABG pH ABG pH POC ABG pCO2 POC ABG pO2 ABG pO2 ABG O2 Saturation ABG Base Excess ABG Hemoglobin Oxyhemoglobin Sodium 132 L Potassium Chloride 92.1 L Carbon Dioxide BUN 82 H Creatinine 2.2 H Glucose 162 H POC Glucose 235 H Calcium 8.3 L Phosphorus 5.20 H D Magnesium Iron TIBC Ferritin Total Bilirubin AST ALT Alkaline Phosphatase 199 H Total Creatine Kinase Troponin T C-Reactive Protein Total Protein 4.5 L Albumin 1.7 L Triglycerides HDL Cholesterol Miscellaneous Test Crossmatch 09/08/17 09/08/17 09/08/17 09:21 11:52 17:38 WBC RBC Hgb Hct MCV MCH RDW Plt Count Lymph % (Auto) [place] % (Auto) [place] # Seg Neutrophils % Seg Neuts % (Manual) Lymphocytes % (Manual) Monocytes % (Manual) Nucleated RBC % Seg Neutrophils # Seg Neutrophils # Man Lymphocytes # (Manual) Monocytes # (Manual) Eosinophils # (Manual) Basophils # (Manual) PT INR POC ABG pH ABG pH POC ABG pCO2 POC ABG pO2 ABG pO2 218.5 H ABG O2 Saturation 99.3 H ABG Base Excess -3.5 L ABG Hemoglobin 7.7 L Oxyhemoglobin Sodium Potassium Chloride Carbon Dioxide BUN Creatinine Glucose POC Glucose 220 H 194 H Calcium Phosphorus Magnesium Iron TIBC Ferritin Total Bilirubin AST ALT Alkaline Phosphatase Total Creatine Kinase Troponin T C-Reactive Protein Total Protein Albumin Triglycerides HDL Cholesterol Miscellaneous Test Crossmatch 09/09/17 09/09/17 09/09/17 00:24 03:37 03:37 WBC 33.5 H RBC 2.36 L Hgb 6.7 L Hct 20.9 L MCV MCH RDW 22.7 H Plt Count Lymph % (Auto) [place] % (Auto) [place]imes # Seg Neutrophils % Seg Neuts % (Manual) Lymphocytes % (Manual) Monocytes % (Manual) Nucleated RBC % Seg Neutrophils # Seg Neutrophils # Man Lymphocytes # (Manual) Monocytes # (Manual) Eosinophils # (Manual) Basophils # (Manual) PT INR POC ABG pH ABG pH POC ABG pCO2 POC ABG pO2 ABG pO2 ABG O2 Saturation ABG Base Excess ABG Hemoglobin Oxyhemoglobin Sodium 132 L Potassium Chloride 91.6 L Carbon Dioxide 21 L BUN 101 H Creatinine 2.6 H Glucose 156 H POC Glucose 182 H Calcium 8.3 L Phosphorus 5.90 H Magnesium 2.60 H Iron TIBC Ferritin Total Bilirubin AST ALT Alkaline Phosphatase Total Creatine Kinase Troponin T C-Reactive Protein Total Protein Albumin Triglycerides HDL Cholesterol Miscellaneous Test Crossmatch 09/09/17 09/09/17 09/09/17 05:29 12:03 18:05 WBC RBC Hgb Hct MCV MCH RDW Plt Count Lymph % (Auto) [place] % (Auto) [place] # Seg Neutrophils % Seg Neuts % (Manual) Lymphocytes % (Manual) Monocytes % (Manual) Nucleated RBC % Seg Neutrophils # Seg Neutrophils # Man Lymphocytes # (Manual) Monocytes # (Manual) Eosinophils # (Manual) Basophils # (Manual) PT INR POC ABG pH ABG pH POC ABG pCO2 POC ABG pO2 ABG pO2 ABG O2 Saturation ABG Base Excess ABG Hemoglobin Oxyhemoglobin Sodium Potassium Chloride Carbon Dioxide BUN Creatinine Glucose POC Glucose 168 H 143 H 173 H Calcium Phosphorus Magnesium Iron TIBC Ferritin Total Bilirubin AST ALT Alkaline Phosphatase Total Creatine Kinase Troponin T C-Reactive Protein Total Protein Albumin Triglycerides HDL Cholesterol Miscellaneous Test Crossmatch 09/09/17 09/09/17 09/10/17 23:30 Unknown 05:04 WBC RBC Hgb Hct MCV MCH RDW Plt Count Lymph % (Auto) [place] % (Auto) [place] # Seg Neutrophils % Seg Neuts % (Manual) Lymphocytes % (Manual) Monocytes % (Manual) Nucleated RBC % Seg Neutrophils # Seg Neutrophils # Man Lymphocytes # (Manual) Monocytes # (Manual) Eosinophils # (Manual) Basophils # (Manual) PT INR POC ABG pH ABG pH 7.323 L POC ABG pCO2 POC ABG pO2 ABG pO2 94.1 H ABG O2 Saturation ABG Base Excess -4.8 L ABG Hemoglobin 8.0 L Oxyhemoglobin 94.9 L Sodium Potassium Chloride Carbon Dioxide BUN Creatinine Glucose POC Glucose 212 H 155 H Calcium Phosphorus Magnesium Iron TIBC Ferritin Total Bilirubin AST ALT Alkaline Phosphatase Total Creatine Kinase Troponin T C-Reactive Protein Total Protein Albumin Triglycerides HDL Cholesterol Miscellaneous Test Crossmatch 09/10/17 09/10/17 09/10/17 07:00 09:55 12:22 WBC 24.7 H RBC 2.62 L Hgb 7.5 L Hct 22.5 L MCV MCH RDW 20.8 H Plt Count Lymph % (Auto) [place] % (Auto) [place]imes # Seg Neutrophils % Seg Neuts % (Manual) Lymphocytes % (Manual) Monocytes % (Manual) Nucleated RBC % Seg Neutrophils # Seg Neutrophils # Man Lymphocytes # (Manual) Monocytes # (Manual) Eosinophils # (Manual) Basophils # (Manual) PT INR POC ABG pH ABG pH POC ABG pCO2 POC ABG pO2 ABG pO2 ABG O2 Saturation ABG Base Excess ABG Hemoglobin Oxyhemoglobin Sodium Potassium Chloride 97.9 L Carbon Dioxide BUN 78 H Creatinine 2.0 H Glucose 126 H POC Glucose 183 H Calcium 8.2 L Phosphorus Magnesium Iron TIBC Ferritin Total Bilirubin AST ALT Alkaline Phosphatase Total Creatine Kinase Troponin T C-Reactive Protein Total Protein Albumin Triglycerides HDL Cholesterol Miscellaneous Test Crossmatch 09/11/17 09/11/17 09/11/17 00:08 03:50 05:28 WBC 21.6 H RBC 2.52 L Hgb 7.4 L Hct 22.2 L MCV MCH RDW 21.5 H Plt Count Lymph % (Auto) [place] % (Auto) [place]imes # Seg Neutrophils % Seg Neuts % (Manual) 92.0 H Lymphocytes % (Manual) 3.0 L Monocytes % (Manual) Nucleated RBC % Seg Neutrophils # Seg Neutrophils # Man 19.9 H Lymphocytes # (Manual) 0.6 L Monocytes # (Manual) Eosinophils # (Manual) Basophils # (Manual) PT INR POC ABG pH ABG pH POC ABG pCO2 POC ABG pO2 ABG pO2 ABG O2 Saturation ABG Base Excess ABG Hemoglobin Oxyhemoglobin Sodium Potassium Chloride Carbon Dioxide BUN Creatinine Glucose POC Glucose 213 H 181 H Calcium Phosphorus Magnesium Iron TIBC Ferritin Total Bilirubin AST ALT Alkaline Phosphatase Total Creatine Kinase Troponin T C-Reactive Protein Total Protein Albumin Triglycerides HDL Cholesterol Miscellaneous Test Crossmatch 09/11/17 09/11/17 09/11/17 11:55 17:56 23:12 WBC RBC Hgb Hct MCV MCH RDW Plt Count Lymph % (Auto) [place] % (Auto) [place]imes # Seg Neutrophils % Seg Neuts % (Manual) Lymphocytes % (Manual) Monocytes % (Manual) Nucleated RBC % Seg Neutrophils # Seg Neutrophils # Man Lymphocytes # (Manual) Monocytes # (Manual) Eosinophils # (Manual) Basophils # (Manual) PT INR POC ABG pH ABG pH POC ABG pCO2 POC ABG pO2 ABG pO2 ABG O2 Saturation ABG Base Excess ABG Hemoglobin Oxyhemoglobin Sodium Potassium Chloride Carbon Dioxide 21 L BUN 80 H Creatinine 2.1 H Glucose 170 H POC Glucose 277 H 206 H Calcium 8.0 L Phosphorus Magnesium Iron TIBC Ferritin Total Bilirubin AST ALT Alkaline Phosphatase Total Creatine Kinase Troponin T C-Reactive Protein Total Protein Albumin Triglycerides HDL Cholesterol Miscellaneous Test Crossmatch 09/11/17 09/12/17 09/12/17 23:36 05:25 05:25 WBC 17.4 H RBC 2.29 L Hgb 6.7 L Hct 20.4 L MCV MCH RDW 21.2 H Plt Count Lymph % (Auto) [place] % (Auto) [place]imes # Seg Neutrophils % Seg Neuts % (Manual) 79.0 H Lymphocytes % (Manual) 5.0 L Monocytes % (Manual) Nucleated RBC % 1.0 H Seg Neutrophils # Seg Neutrophils # Man 13.7 H Lymphocytes # (Manual) 0.9 L Monocytes # (Manual) 1.2 H Eosinophils # (Manual) Basophils # (Manual) PT INR POC ABG pH ABG pH POC ABG pCO2 POC ABG pO2 ABG pO2 ABG O2 Saturation ABG Base Excess ABG Hemoglobin Oxyhemoglobin Sodium Potassium Chloride Carbon Dioxide BUN Creatinine Glucose POC Glucose 190 H Calcium Phosphorus Magnesium Iron 22 L TIBC 81 L Ferritin Total Bilirubin AST ALT Alkaline Phosphatase Total Creatine Kinase Troponin T C-Reactive Protein Total Protein Albumin Triglycerides HDL Cholesterol Miscellaneous Test Crossmatch 09/12/17 09/12/17 09/12/17 05:25 05:36 09:14 WBC RBC Hgb Hct MCV MCH RDW Plt Count Lymph % (Auto) [place] % (Auto) [place]imes # Seg Neutrophils % Seg Neuts % (Manual) Lymphocytes % (Manual) Monocytes % (Manual) Nucleated RBC % Seg Neutrophils # Seg Neutrophils # Man Lymphocytes # (Manual) Monocytes # (Manual) Eosinophils # (Manual) Basophils # (Manual) PT INR POC ABG pH ABG pH POC ABG pCO2 POC ABG pO2 ABG pO2 ABG O2 Saturation ABG Base Excess ABG Hemoglobin Oxyhemoglobin Sodium Potassium Chloride Carbon Dioxide BUN Creatinine Glucose POC Glucose 141 H Calcium Phosphorus Magnesium Iron TIBC Ferritin > 2000.0 H Total Bilirubin AST ALT Alkaline Phosphatase Total Creatine Kinase Troponin T C-Reactive Protein Total Protein Albumin Triglycerides HDL Cholesterol Miscellaneous Test Crossmatch See Detail 09/12/17 09/12/17 09/12/17 11:18 15:22 17:18 WBC RBC Hgb 8.5 L Hct 25.4 L MCV MCH RDW Plt Count Lymph % (Auto) [place]imes % (Auto) [place]imes # Seg Neutrophils % Seg Neuts % (Manual) Lymphocytes % (Manual) Monocytes % (Manual) Nucleated RBC % Seg Neutrophils # Seg Neutrophils # Man Lymphocytes # (Manual) Monocytes # (Manual) Eosinophils # (Manual) Basophils # (Manual) PT INR POC ABG pH ABG pH POC ABG pCO2 POC ABG pO2 ABG pO2 ABG O2 Saturation ABG Base Excess ABG Hemoglobin Oxyhemoglobin Sodium Potassium Chloride Carbon Dioxide BUN Creatinine Glucose POC Glucose 262 H 193 H Calcium Phosphorus Magnesium Iron TIBC Ferritin Total Bilirubin AST ALT Alkaline Phosphatase Total Creatine Kinase Troponin T C-Reactive Protein Total Protein Albumin Triglycerides HDL Cholesterol Miscellaneous Test Crossmatch 09/13/17 09/13/17 09/13/17 00:05 06:25 11:36 WBC RBC Hgb Hct MCV MCH RDW Plt Count Lymph % (Auto) [place]imes % (Auto) [place]imes # Seg Neutrophils % Seg Neuts % (Manual) Lymphocytes % (Manual) Monocytes % (Manual) Nucleated RBC % Seg Neutrophils # Seg Neutrophils # Man Lymphocytes # (Manual) Monocytes # (Manual) Eosinophils # (Manual) Basophils # (Manual) PT INR POC ABG pH 7.347 L ABG pH POC ABG pCO2 34.3 L POC ABG pO2 134 H ABG pO2 ABG O2 Saturation ABG Base Excess ABG Hemoglobin Oxyhemoglobin Sodium Potassium Chloride Carbon Dioxide BUN Creatinine Glucose POC Glucose 235 H 286 H Calcium Phosphorus Magnesium Iron TIBC Ferritin Total Bilirubin AST ALT Alkaline Phosphatase Total Creatine Kinase Troponin T C-Reactive Protein Total Protein Albumin Triglycerides HDL Cholesterol Miscellaneous Test Crossmatch 1009/13/17 09/13/17 11:56 17:25 23:18 WBC RBC Hgb Hct MCV MCH RDW Plt Count Lymph % (Auto) [place] % (Auto) [place]imes # Seg Neutrophils % Seg Neuts % (Manual) Lymphocytes % (Manual) Monocytes % (Manual) Nucleated RBC % Seg Neutrophils # Seg Neutrophils # Man Lymphocytes # (Manual) Monocytes # (Manual) Eosinophils # (Manual) Basophils # (Manual) PT INR POC ABG pH ABG pH POC ABG pCO2 POC ABG pO2 ABG pO2 ABG O2 Saturation ABG Base Excess ABG Hemoglobin Oxyhemoglobin Sodium Potassium Chloride Carbon Dioxide BUN Creatinine Glucose POC Glucose 318 H 278 H 230 H Calcium Phosphorus Magnesium Iron TIBC Ferritin Total Bilirubin AST ALT Alkaline Phosphatase Total Creatine Kinase Troponin T C-Reactive Protein Total Protein Albumin Triglycerides HDL Cholesterol Miscellaneous Test Crossmatch 09/13/17 09/13/17 09/13/17 Unknown Unknown Unknown WBC 15.6 H RBC 2.72 L Hgb 8.1 L Hct 23.9 L MCV MCH RDW 19.5 H Plt Count 137 L Lymph % (Auto) Grimes % (Auto) Grimes # Seg Neutrophils % Seg Neuts % (Manual) 73.0 H Lymphocytes % (Manual) 3.0 L Monocytes % (Manual) 19.0 H Nucleated RBC % 2.0 H Seg Neutrophils # Seg Neutrophils # Man 11.4 H Lymphocytes # (Manual) 0.5 L Monocytes # (Manual) 3.0 H Eosinophils # (Manual) Basophils # (Manual) PT INR POC ABG pH ABG pH POC ABG pCO2 POC ABG pO2 ABG pO2 ABG O2 Saturation ABG Base Excess ABG Hemoglobin Oxyhemoglobin Sodium Potassium Chloride Carbon Dioxide 19 L BUN 103 H Creatinine 2.6 H Glucose 173 H POC Glucose Calcium Phosphorus Magnesium Iron TIBC Ferritin Total Bilirubin AST ALT Alkaline Phosphatase Total Creatine Kinase Troponin T C-Reactive Protein Total Protein Albumin < 0.2 L Triglycerides HDL Cholesterol Miscellaneous Test Crossmatch 09/14/17 09/14/17 09/14/17 03:15 03:15 05:16 WBC 12.5 H RBC 2.55 L Hgb 7.6 L Hct 22.5 L MCV MCH RDW 19.8 H Plt Count 139 L Lymph % (Auto) Grimes % (Auto) Grimes # Seg Neutrophils % Seg Neuts % (Manual) Lymphocytes % (Manual) Monocytes % (Manual) Nucleated RBC % Seg Neutrophils # Seg Neutrophils # Man Lymphocytes # (Manual) Monocytes # (Manual) Eosinophils # (Manual) Basophils # (Manual) PT INR POC ABG pH ABG pH POC ABG pCO2 POC ABG pO2 ABG pO2 ABG O2 Saturation ABG Base Excess ABG Hemoglobin Oxyhemoglobin Sodium Potassium Chloride Carbon Dioxide BUN 75 H Creatinine 2.1 H Glucose 217 H POC Glucose 283 H Calcium Phosphorus 2.20 L D Magnesium Iron TIBC Ferritin Total Bilirubin AST ALT Alkaline Phosphatase Total Creatine Kinase Troponin T C-Reactive Protein Total Protein Albumin Triglycerides HDL Cholesterol Miscellaneous Test Crossmatch 09/14/17 09/14/17 09/15/17 12:11 17:47 00:03 WBC RBC Hgb Hct MCV MCH RDW Plt Count Lymph % (Auto) Grimes % (Auto) Grimes # Seg Neutrophils % Seg Neuts % (Manual) Lymphocytes % (Manual) Monocytes % (Manual) Nucleated RBC % Seg Neutrophils # Seg Neutrophils # Man Lymphocytes # (Manual) Monocytes # (Manual) Eosinophils # (Manual) Basophils # (Manual) PT INR POC ABG pH ABG pH POC ABG pCO2 POC ABG pO2 ABG pO2 ABG O2 Saturation ABG Base Excess ABG Hemoglobin Oxyhemoglobin Sodium Potassium Chloride Carbon Dioxide BUN Creatinine Glucose POC Glucose 251 H 289 H 229 H Calcium Phosphorus Magnesium Iron TIBC Ferritin Total Bilirubin AST ALT Alkaline Phosphatase Total Creatine Kinase Troponin T C-Reactive Protein Total Protein Albumin Triglycerides HDL Cholesterol Miscellaneous Test Crossmatch 09/15/17 09/15/17 09/15/17 05:00 05:00 05:30 WBC 11.7 H RBC 2.50 L Hgb 7.4 L Hct 22.7 L MCV MCH RDW 20.5 H Plt Count Lymph % (Auto) Grimes % (Auto) Grimes # Seg Neutrophils % Seg Neuts % (Manual) Lymphocytes % (Manual) 11.0 L Monocytes % (Manual) 11.0 H Nucleated RBC % Seg Neutrophils # Seg Neutrophils # Man Lymphocytes # (Manual) Monocytes # (Manual) 1.3 H Eosinophils # (Manual) Basophils # (Manual) PT INR POC ABG pH ABG pH POC ABG pCO2 POC ABG pO2 ABG pO2 ABG O2 Saturation ABG Base Excess ABG Hemoglobin Oxyhemoglobin Sodium Potassium Chloride 97.0 L Carbon Dioxide 21 L BUN 94 H Creatinine 2.4 H Glucose 194 H POC Glucose 225 H Calcium Phosphorus Magnesium Iron TIBC Ferritin Total Bilirubin AST ALT Alkaline Phosphatase Total Creatine Kinase Troponin T C-Reactive Protein Total Protein Albumin Triglycerides HDL Cholesterol Miscellaneous Test Crossmatch 09/15/17 09/15/17 09/15/17 07:48 11:38 12:45 WBC RBC 1.93 L Hgb 5.7 L* Hct 17.1 L* MCV MCH RDW 20.2 H Plt Count 125 L Lymph % (Auto) Grimes % (Auto) Grimes # Seg Neutrophils % Seg Neuts % (Manual) 79.0 H Lymphocytes % (Manual) 8.0 L Monocytes % (Manual) Nucleated RBC % Seg Neutrophils # Seg Neutrophils # Man Lymphocytes # (Manual) 0.8 L Monocytes # (Manual) Eosinophils # (Manual) Basophils # (Manual) PT INR POC ABG pH ABG pH POC ABG pCO2 POC ABG pO2 ABG pO2 ABG O2 Saturation ABG Base Excess ABG Hemoglobin Oxyhemoglobin Sodium Potassium Chloride Carbon Dioxide BUN Creatinine Glucose POC Glucose 245 H 253 H Calcium Phosphorus Magnesium Iron TIBC Ferritin Total Bilirubin AST ALT Alkaline Phosphatase Total Creatine Kinase Troponin T C-Reactive Protein Total Protein Albumin Triglycerides HDL Cholesterol Miscellaneous Test Crossmatch 09/15/17 09/15/17 09/15/17 12:45 12:45 22:25 WBC 19.6 H RBC 3.32 L Hgb 10.0 L D Hct 29.3 L D MCV MCH RDW 17.0 H Plt Count 123 L Lymph % (Auto) Grimes % (Auto) Grimes # Seg Neutrophils % Seg Neuts % (Manual) Lymphocytes % (Manual) 12.0 L Monocytes % (Manual) Nucleated RBC % 5.0 H Seg Neutrophils # Seg Neutrophils # Man 11.0 H Lymphocytes # (Manual) Monocytes # (Manual) 1.2 H Eosinophils # (Manual) Basophils # (Manual) PT 15.4 H INR 1.16 H POC ABG pH ABG pH POC ABG pCO2 POC ABG pO2 ABG pO2 ABG O2 Saturation ABG Base Excess ABG Hemoglobin Oxyhemoglobin Sodium Potassium Chloride Carbon Dioxide BUN Creatinine Glucose POC Glucose Calcium Phosphorus Magnesium Iron TIBC Ferritin Total Bilirubin AST ALT Alkaline Phosphatase Total Creatine Kinase Troponin T C-Reactive Protein Total Protein Albumin Triglycerides HDL Cholesterol Miscellaneous Test Crossmatch See Detail 09/15/17 09/15/17 09/16/17 22:25 23:38 01:26 WBC RBC Hgb Hct MCV MCH RDW Plt Count Lymph % (Auto) Grimes % (Auto) Grimes # Seg Neutrophils % Seg Neuts % (Manual) Lymphocytes % (Manual) Monocytes % (Manual) Nucleated RBC % Seg Neutrophils # Seg Neutrophils # Man Lymphocytes # (Manual) Monocytes # (Manual) Eosinophils # (Manual) Basophils # (Manual) PT INR POC ABG pH ABG pH POC ABG pCO2 POC ABG pO2 ABG pO2 ABG O2 Saturation ABG Base Excess ABG Hemoglobin Oxyhemoglobin Sodium Potassium Chloride Carbon Dioxide 17 L BUN 100 H Creatinine 2.6 H Glucose POC Glucose 58 L 132 H Calcium 8.3 L Phosphorus Magnesium 1.60 L Iron TIBC Ferritin Total Bilirubin 2.80 H AST 118 H ALT Alkaline Phosphatase 316 H Total Creatine Kinase Troponin T C-Reactive Protein Total Protein 4.0 L Albumin 1.8 L Triglycerides HDL Cholesterol Miscellaneous Test Crossmatch 09/16/17 09/16/17 09/16/17 05:30 05:30 05:54 WBC 24.6 H RBC 3.22 L Hgb 9.8 L Hct 28.6 L MCV MCH RDW 17.4 H Plt Count 127 L Lymph % (Auto) Grimes % (Auto) Grimes # Seg Neutrophils % Seg Neuts % (Manual) Lymphocytes % (Manual) Monocytes % (Manual) Nucleated RBC % Seg Neutrophils # Seg Neutrophils # Man Lymphocytes # (Manual) Monocytes # (Manual) Eosinophils # (Manual) Basophils # (Manual) PT INR POC ABG pH ABG pH POC ABG pCO2 POC ABG pO2 ABG pO2 ABG O2 Saturation ABG Base Excess ABG Hemoglobin Oxyhemoglobin Sodium Potassium Chloride Carbon Dioxide 18 L BUN 109 H Creatinine 2.5 H Glucose 140 H POC Glucose 154 H Calcium Phosphorus 4.80 H Magnesium Iron TIBC Ferritin Total Bilirubin 2.40 H AST 90 H ALT Alkaline Phosphatase 298 H Total Creatine Kinase 20 L Troponin T C-Reactive Protein Total Protein 4.1 L Albumin 1.8 L Triglycerides HDL Cholesterol Miscellaneous Test Crossmatch 09/16/17 09/16/17 09/16/17 11:49 17:04 23:18 WBC RBC Hgb Hct MCV MCH RDW Plt Count Lymph % (Auto) Grimes % (Auto) Grimes # Seg Neutrophils % Seg Neuts % (Manual) Lymphocytes % (Manual) Monocytes % (Manual) Nucleated RBC % Seg Neutrophils # Seg Neutrophils # Man Lymphocytes # (Manual) Monocytes # (Manual) Eosinophils # (Manual) Basophils # (Manual) PT INR POC ABG pH ABG pH POC ABG pCO2 POC ABG pO2 ABG pO2 ABG O2 Saturation ABG Base Excess ABG Hemoglobin Oxyhemoglobin Sodium Potassium Chloride Carbon Dioxide BUN Creatinine Glucose POC Glucose 167 H 156 H 162 H Calcium Phosphorus Magnesium Iron TIBC Ferritin Total Bilirubin AST ALT Alkaline Phosphatase Total Creatine Kinase Troponin T C-Reactive Protein Total Protein Albumin Triglycerides HDL Cholesterol Miscellaneous Test Crossmatch 09/17/17 09/17/17 09/17/17 05:27 06:10 06:10 WBC 34.6 H RBC 2.75 L Hgb 8.4 L Hct 24.8 L MCV MCH RDW 18.3 H Plt Count Lymph % (Auto) Grimes % (Auto) Grimes # Seg Neutrophils % Seg Neuts % (Manual) 77.0 H Lymphocytes % (Manual) 5.0 L Monocytes % (Manual) Nucleated RBC % 2.0 H Seg Neutrophils # Seg Neutrophils # Man 26.6 H Lymphocytes # (Manual) Monocytes # (Manual) 2.4 H Eosinophils # (Manual) Basophils # (Manual) PT INR POC ABG pH ABG pH POC ABG pCO2 POC ABG pO2 ABG pO2 ABG O2 Saturation ABG Base Excess ABG Hemoglobin Oxyhemoglobin Sodium Potassium Chloride Carbon Dioxide BUN 82 H Creatinine 2.1 H Glucose 252 H POC Glucose 243 H Calcium 8.3 L Phosphorus Magnesium Iron TIBC Ferritin Total Bilirubin AST ALT Alkaline Phosphatase Total Creatine Kinase Troponin T C-Reactive Protein Total Protein Albumin Triglycerides HDL Cholesterol Miscellaneous Test Crossmatch 09/17/17 09/17/17 09/18/17 11:42 17:12 00:08 WBC RBC Hgb Hct MCV MCH RDW Plt Count Lymph % (Auto) Grimes % (Auto) Grimes # Seg Neutrophils % Seg Neuts % (Manual) Lymphocytes % (Manual) Monocytes % (Manual) Nucleated RBC % Seg Neutrophils # Seg Neutrophils # Man Lymphocytes # (Manual) Monocytes # (Manual) Eosinophils # (Manual) Basophils # (Manual) PT INR POC ABG pH ABG pH POC ABG pCO2 POC ABG pO2 ABG pO2 ABG O2 Saturation ABG Base Excess ABG Hemoglobin Oxyhemoglobin Sodium Potassium Chloride Carbon Dioxide BUN Creatinine Glucose POC Glucose 232 H 309 H 275 H Calcium Phosphorus Magnesium Iron TIBC Ferritin Total Bilirubin AST ALT Alkaline Phosphatase Total Creatine Kinase Troponin T C-Reactive Protein Total Protein Albumin Triglycerides HDL Cholesterol Miscellaneous Test Crossmatch 09/18/17 09/18/17 09/18/17 05:10 05:10 05:23 WBC 24.4 H RBC 2.57 L Hgb 7.8 L Hct 23.2 L MCV MCH RDW 19.5 H Plt Count Lymph % (Auto) Grimes % (Auto) Grimes # Seg Neutrophils % Seg Neuts % (Manual) 78.0 H Lymphocytes % (Manual) 6.0 L Monocytes % (Manual) Nucleated RBC % 2.0 H Seg Neutrophils # Seg Neutrophils # Man 19.0 H Lymphocytes # (Manual) Monocytes # (Manual) Eosinophils # (Manual) Basophils # (Manual) PT INR POC ABG pH ABG pH POC ABG pCO2 POC ABG pO2 ABG pO2 ABG O2 Saturation ABG Base Excess ABG Hemoglobin Oxyhemoglobin Sodium Potassium Chloride Carbon Dioxide BUN 103 H Creatinine 2.8 H Glucose 173 H POC Glucose 224 H Calcium Phosphorus Magnesium Iron TIBC Ferritin Total Bilirubin AST ALT Alkaline Phosphatase Total Creatine Kinase Troponin T C-Reactive Protein Total Protein Albumin Triglycerides HDL Cholesterol Miscellaneous Test Crossmatch 09/18/17 09/18/17 09/18/17 13:59 18:35 23:19 WBC RBC Hgb Hct MCV MCH RDW Plt Count Lymph % (Auto) Grimes % (Auto) Grimes # Seg Neutrophils % Seg Neuts % (Manual) Lymphocytes % (Manual) Monocytes % (Manual) Nucleated RBC % Seg Neutrophils # Seg Neutrophils # Man Lymphocytes # (Manual) Monocytes # (Manual) Eosinophils # (Manual) Basophils # (Manual) PT INR POC ABG pH ABG pH POC ABG pCO2 POC ABG pO2 ABG pO2 ABG O2 Saturation ABG Base Excess ABG Hemoglobin Oxyhemoglobin Sodium Potassium Chloride Carbon Dioxide BUN Creatinine Glucose POC Glucose 268 H 220 H 188 H Calcium Phosphorus Magnesium Iron TIBC Ferritin Total Bilirubin AST ALT Alkaline Phosphatase Total Creatine Kinase Troponin T C-Reactive Protein Total Protein Albumin Triglycerides HDL Cholesterol Miscellaneous Test Crossmatch 09/19/17 09/19/17 09/19/17 05:45 06:00 11:41 WBC 17.6 H RBC 2.57 L Hgb 7.9 L Hct 23.2 L MCV MCH RDW 19.0 H Plt Count Lymph % (Auto) Grimes % (Auto) Grimes # Seg Neutrophils % Seg Neuts % (Manual) Lymphocytes % (Manual) 9.0 L Monocytes % (Manual) Nucleated RBC % Seg Neutrophils # Seg Neutrophils # Man 11.4 H Lymphocytes # (Manual) Monocytes # (Manual) 0.9 H Eosinophils # (Manual) Basophils # (Manual) PT INR POC ABG pH ABG pH POC ABG pCO2 POC ABG pO2 ABG pO2 ABG O2 Saturation ABG Base Excess ABG Hemoglobin Oxyhemoglobin Sodium Potassium Chloride Carbon Dioxide BUN Creatinine Glucose POC Glucose 178 H 126 H Calcium Phosphorus Magnesium Iron TIBC Ferritin Total Bilirubin AST ALT Alkaline Phosphatase Total Creatine Kinase Troponin T C-Reactive Protein Total Protein Albumin Triglycerides HDL Cholesterol Miscellaneous Test Crossmatch 09/19/17 09/19/17 09/20/17 17:08 23:46 04:46 WBC RBC Hgb Hct MCV MCH RDW Plt Count Lymph % (Auto) Grimes % (Auto) Grimes # Seg Neutrophils % Seg Neuts % (Manual) Lymphocytes % (Manual) Monocytes % (Manual) Nucleated RBC % Seg Neutrophils # Seg Neutrophils # Man Lymphocytes # (Manual) Monocytes # (Manual) Eosinophils # (Manual) Basophils # (Manual) PT INR POC ABG pH ABG pH POC ABG pCO2 POC ABG pO2 ABG pO2 ABG O2 Saturation ABG Base Excess ABG Hemoglobin Oxyhemoglobin Sodium Potassium 5.2 H D Chloride 97.4 L Carbon Dioxide 20 L BUN 98 H Creatinine 2.4 H Glucose 187 H POC Glucose 263 H 161 H Calcium Phosphorus Magnesium Iron TIBC Ferritin Total Bilirubin AST ALT Alkaline Phosphatase Total Creatine Kinase Troponin T C-Reactive Protein Total Protein Albumin Triglycerides HDL Cholesterol Miscellaneous Test Crossmatch 09/20/17 09/20/17 09/20/17 05:38 11:36 11:41 WBC 24.5 H RBC 2.84 L Hgb 8.2 L Hct 26.2 L MCV MCH RDW 20.0 H Plt Count 470 H Lymph % (Auto) Grimes % (Auto) Grimes # Seg Neutrophils % Seg Neuts % (Manual) Lymphocytes % (Manual) Monocytes % (Manual) Nucleated RBC % Seg Neutrophils # Seg Neutrophils # Man Lymphocytes # (Manual) Monocytes # (Manual) Eosinophils # (Manual) Basophils # (Manual) PT INR POC ABG pH ABG pH POC ABG pCO2 POC ABG pO2 ABG pO2 ABG O2 Saturation ABG Base Excess ABG Hemoglobin Oxyhemoglobin Sodium Potassium Chloride Carbon Dioxide BUN Creatinine Glucose POC Glucose 215 H 220 H Calcium Phosphorus Magnesium Iron TIBC Ferritin Total Bilirubin AST ALT Alkaline Phosphatase Total Creatine Kinase Troponin T C-Reactive Protein Total Protein Albumin Triglycerides HDL Cholesterol Miscellaneous Test Crossmatch 09/20/17 09/21/17 09/21/17 17:45 00:51 04:00 WBC RBC Hgb Hct MCV MCH RDW Plt Count Lymph % (Auto) Grimes % (Auto) Grimes # Seg Neutrophils % Seg Neuts % (Manual) Lymphocytes % (Manual) Monocytes % (Manual) Nucleated RBC % Seg Neutrophils # Seg Neutrophils # Man Lymphocytes # (Manual) Monocytes # (Manual) Eosinophils # (Manual) Basophils # (Manual) PT INR POC ABG pH ABG pH POC ABG pCO2 POC ABG pO2 ABG pO2 ABG O2 Saturation ABG Base Excess ABG Hemoglobin Oxyhemoglobin Sodium Potassium 3.2 L D Chloride 96.4 L Carbon Dioxide BUN 63 H Creatinine 1.8 H Glucose 204 H POC Glucose 122 H 137 H Calcium 8.3 L Phosphorus 2.10 L D Magnesium 1.50 L Iron TIBC Ferritin Total Bilirubin AST ALT Alkaline Phosphatase Total Creatine Kinase Troponin T C-Reactive Protein Total Protein Albumin Triglycerides HDL Cholesterol Miscellaneous Test Crossmatch 09/21/17 09/21/17 09/21/17 05:45 08:30 11:50 WBC 27.5 H RBC 2.52 L Hgb 7.7 L Hct 22.8 L MCV MCH RDW 19.2 H Plt Count 457 H Lymph % (Auto) Grimes % (Auto) Grimes # Seg Neutrophils % Seg Neuts % (Manual) Lymphocytes % (Manual) Monocytes % (Manual) Nucleated RBC % Seg Neutrophils # Seg Neutrophils # Man Lymphocytes # (Manual) Monocytes # (Manual) Eosinophils # (Manual) Basophils # (Manual) PT INR POC ABG pH ABG pH POC ABG pCO2 POC ABG pO2 ABG pO2 ABG O2 Saturation ABG Base Excess ABG Hemoglobin Oxyhemoglobin Sodium Potassium Chloride Carbon Dioxide BUN Creatinine Glucose POC Glucose 243 H Calcium Phosphorus Magnesium Iron TIBC Ferritin Total Bilirubin AST ALT Alkaline Phosphatase Total Creatine Kinase Troponin T C-Reactive Protein Total Protein Albumin Triglycerides HDL Cholesterol Miscellaneous Test Crossmatch See Detail 09/21/17 09/21/17 09/22/17 13:03 16:39 00:09 WBC RBC Hgb Hct MCV MCH RDW Plt Count Lymph % (Auto) Grimes % (Auto) Grimes # Seg Neutrophils % Seg Neuts % (Manual) Lymphocytes % (Manual) Monocytes % (Manual) Nucleated RBC % Seg Neutrophils # Seg Neutrophils # Man Lymphocytes # (Manual) Monocytes # (Manual) Eosinophils # (Manual) Basophils # (Manual) PT INR POC ABG pH ABG pH POC ABG pCO2 POC ABG pO2 ABG pO2 ABG O2 Saturation ABG Base Excess ABG Hemoglobin Oxyhemoglobin Sodium Potassium Chloride Carbon Dioxide BUN Creatinine Glucose POC Glucose 271 H 160 H 191 H Calcium Phosphorus Magnesium Iron TIBC Ferritin Total Bilirubin AST ALT Alkaline Phosphatase Total Creatine Kinase Troponin T C-Reactive Protein Total Protein Albumin Triglycerides HDL Cholesterol Miscellaneous Test Crossmatch 09/22/17 09/22/17 09/22/17 03:37 05:40 07:35 WBC 29.7 H RBC 2.71 L Hgb 8.1 L Hct 24.1 L MCV MCH RDW 19.6 H Plt Count 491 H Lymph % (Auto) Grimes % (Auto) Grimes # Seg Neutrophils % Seg Neuts % (Manual) Lymphocytes % (Manual) Monocytes % (Manual) Nucleated RBC % Seg Neutrophils # Seg Neutrophils # Man Lymphocytes # (Manual) Monocytes # (Manual) Eosinophils # (Manual) Basophils # (Manual) PT INR POC ABG pH ABG pH POC ABG pCO2 POC ABG pO2 ABG pO2 ABG O2 Saturation ABG Base Excess ABG Hemoglobin Oxyhemoglobin Sodium Potassium 3.0 L Chloride 95.9 L Carbon Dioxide BUN 74 H Creatinine 2.1 H Glucose 126 H POC Glucose 150 H Calcium Phosphorus 2.10 L Magnesium 1.40 L Iron TIBC Ferritin Total Bilirubin AST ALT Alkaline Phosphatase 311 H Total Creatine Kinase Troponin T C-Reactive Protein Total Protein 4.4 L Albumin 2.0 L Triglycerides HDL Cholesterol Miscellaneous Test Crossmatch
[2017-09-22 11:11] LABS: Basophils % (Manual) 0.5 % (0.0-1.8); Blastocytes % (Manual) 0 %; Eosinophils % (Manual) 0 % (0.0-4.3); Total Cells Counted Percent 10.5
[2017-09-22 11:12] LABS: Anisocytosis 1+
[2017-09-22 11:13] LABS: Diff Status Complete; Platelet Estimate Consistent w Auto
--- NOTE | 2017-09-22 13:34 | Progress Note ---
Assessment and Plan 62 y.o. F s/p ex lap, transverse colon resection, colostomy creation, and s/p ex lap, abdominal wash out and abdominal wall closure after wound dehiscence 3 weeks s/p ex lap for gastric perforation and sbo. s/p transverse colon resection with ostomy resection for perforated colon: ostomy patent. Wound care nurse consulted for colostomy care. Monitor for leaking of stool in midline wound -concerning coleamn fluid draining from her inferior portion of incision. Abscess vs succus. CT showed fluid collection in pelvis but not a definite abscess. - IR agreed to reasses and perform the drainage on Saturday -Pt's clinical status has not changed. Will wait for IR to proceed with drainage tomorrow and hold off on surgery. i Monitor MERVIN output- becoming more serous sanginous/coleman. Monitor output- decreasing. Continue G tube to gravity. Outputs to be recorded on paper in room for accurate outputs. connect MERVIN to low wall suction Levo discontinued this am s/p Antonieta placement - Levo was stopped today as BP improved. - ID following - merrem, mycamin, -Rec. wean steriods-OFF VDRF: s/p trach. Prev Gastric perf: Sealed. In light of recent surgery, keep G tube to gravity CKD- HD per renal Nutrition: TPN at 77,. DVT proph: scds GI: PPI. - Patient Problems (1) Peritonitis (acute) generalized Current Visit: Yes Status: Acute Subjective Narrative: Pt a little more awake today. Afebrile overnight. Objective Vital Signs - 12hr 09/22/17 09/22/17 09/22/17 01:45 02:00 02:15 Temperature Pulse Rate 99 H 102 H 103 H Respiratory 17 17 23 Rate Blood Pressure 132/90 133/86 129/62 O2 Sat by Pulse 100 100 100 Oximetry 09/22/17 09/22/17 09/22/17 02:30 02:45 03:00 Temperature Pulse Rate 106 H 103 H 99 H Respiratory 24 25 H 19 Rate Blood Pressure 132/53 134/48 129/66 O2 Sat by Pulse 100 100 99 Oximetry 09/22/17 09/22/17 09/22/17 03:16 03:30 03:39 Temperature 98.7 F Pulse Rate 96 H 109 H Respiratory 24 13 Rate Blood Pressure 132/51 139/104 O2 Sat by Pulse 98 98 Oximetry 09/22/17 09/22/17 09/22/17 03:45 04:00 04:16 Temperature Pulse Rate 100 H 106 H 101 H Respiratory 24 20 20 Rate Blood Pressure 129/110 129/110 112/64 O2 Sat by Pulse 99 100 99 Oximetry 09/22/17 09/22/17 09/22/17 04:30 04:38 04:46 Temperature Pulse Rate 110 H 89 108 H Respiratory 14 16 Rate Blood Pressure 112/64 128/78 127/51 O2 Sat by Pulse 100 100 100 Oximetry 09/22/17 09/22/17 09/22/17 05:00 05:15 05:30 Temperature Pulse Rate 106 H 102 H 108 H Respiratory 18 16 20 Rate Blood Pressure 127/51 132/72 133/68 O2 Sat by Pulse 100 100 100 Oximetry 09/22/17 09/22/17 09/22/17 05:46 05:56 06:00 Temperature Pulse Rate 111 H 105 H Respiratory 26 H 21 21 Rate Blood Pressure 143/69 145/80 O2 Sat by Pulse 100 100 Oximetry 09/22/17 09/22/17 09/22/17 06:16 06:30 06:46 Temperature Pulse Rate 97 H 105 H 111 H Respiratory 19 22 23 Rate Blood Pressure 134/53 134/53 132/70 O2 Sat by Pulse 100 100 99 Oximetry 09/22/17 09/22/17 09/22/17 07:00 07:15 07:30 Temperature Pulse Rate 110 H 103 H 106 H Respiratory 17 27 H 18 Rate Blood Pressure 132/70 134/78 134/78 O2 Sat by Pulse 100 100 100 Oximetry 09/22/17 09/22/17 09/22/17 07:46 08:00 08:16 Temperature 98.2 F Pulse Rate 110 H 103 H 105 H Respiratory 19 22 25 H Rate Blood Pressure 131/62 126/61 127/70 O2 Sat by Pulse 100 99 99 Oximetry 09/22/17 09/22/17 09/22/17 08:30 08:46 08:48 Temperature Pulse Rate 108 H 102 H 100 H Respiratory 25 H 24 Rate Blood Pressure 127/70 125/66 125/66 O2 Sat by Pulse 100 100 99 Oximetry 09/22/17 09/22/17 09/22/17 09:00 09:04 09:15 Temperature Pulse Rate 107 H 99 H 100 H Respiratory 26 H 28 H 32 H Rate Blood Pressure 142/67 142/67 131/62 O2 Sat by Pulse 100 100 100 Oximetry 09/22/17 09/22/17 09/22/17 09:30 09:45 10:00 Temperature Pulse Rate 101 H 108 H 107 H Respiratory 34 H 33 H 30 H Rate Blood Pressure 137/53 131/53 120/59 O2 Sat by Pulse 100 100 100 Oximetry 09/22/17 09/22/17 09/22/17 10:15 10:30 10:45 Temperature Pulse Rate 113 H 105 H 108 H Respiratory 31 H 36 H 36 H Rate Blood Pressure 129/70 129/70 133/66 O2 Sat by Pulse 100 100 100 Oximetry 09/22/17 09/22/17 09/22/17 11:00 11:15 11:23 Temperature Pulse Rate 106 H 100 H 108 H Respiratory 33 H 24 34 H Rate Blood Pressure 120/58 127/65 127/65 O2 Sat by Pulse 100 99 100 Oximetry 09/22/17 09/22/17 09/22/17 11:30 11:45 12:00 Temperature 98.6 F Pulse Rate 108 H 104 H 102 H Respiratory 33 H 37 H 39 H Rate Blood Pressure 116/56 124/65 127/59 O2 Sat by Pulse 99 100 100 Oximetry 09/22/17 09/22/17 09/22/17 12:15 12:30 12:45 Temperature Pulse Rate 112 H 105 H 111 H Respiratory 36 H 36 H 34 H Rate Blood Pressure 129/72 140/65 133/78 O2 Sat by Pulse 100 100 98 Oximetry 09/22/17 13:00 Temperature Pulse Rate 114 H Respiratory 39 H Rate Blood Pressure 128/71 O2 Sat by Pulse 99 Oximetry - General physical appearance no distress, chronically ill, obese - Respiratory normal expansion, normal respiratory effort, other (vent) - Abdomen other (obese, soft, midline dressing removed. no leakage of stool into midline as prior less coleman fluid compared to prior at inferior portion of incision. upper portion of incision - seroang discharge. wound irrigated with NS and repacked with calcium alginate. MERVIN draiing serosang/murky fluid. G tube bilious. colostomy: +liquid stool. minial air in bag. ) - Labs 09/23/17 05:02 09/23/17 05:02 Diabetes panel 09/22/17 Range/Units 03:37 Sodium 137 (137-145) mmol/L Potassium 3.0 L (3.6-5.0) mmol/L Chloride 95.9 L (98-107) mmol/L Carbon Dioxide 22 (22-30) mmol/L BUN 74 H (7-17) mg/dL Creatinine 2.1 H (0.7-1.2) mg/dL Glucose 126 H (65-100) mg/dL Calcium 8.4 (8.4-10.2) mg/dL AST 33 (5-40) units/L ALT 16 (7-56) units/L Alkaline Phosphatase 311 H (35-129) units/L Total Protein 4.4 L (6.3-8.2) g/dL Albumin 2.0 L (3.9-5) g/dL Calcium panel 09/22/17 Range/Units 03:37 Calcium 8.4 (8.4-10.2) mg/dL Phosphorus 2.10 L (2.5-4.5) mg/dL Albumin 2.0 L (3.9-5) g/dL Pituitary panel 09/22/17 Range/Units 03:37 Sodium 137 (137-145) mmol/L Potassium 3.0 L (3.6-5.0) mmol/L Chloride 95.9 L (98-107) mmol/L Carbon Dioxide 22 (22-30) mmol/L BUN 74 H (7-17) mg/dL Creatinine 2.1 H (0.7-1.2) mg/dL Glucose 126 H (65-100) mg/dL Calcium 8.4 (8.4-10.2) mg/dL Adrenal panel 09/22/17 Range/Units 03:37 Sodium 137 (137-145) mmol/L Potassium 3.0 L (3.6-5.0) mmol/L Chloride 95.9 L (98-107) mmol/L Carbon Dioxide 22 (22-30) mmol/L BUN 74 H (7-17) mg/dL Creatinine 2.1 H (0.7-1.2) mg/dL Glucose 126 H (65-100) mg/dL Calcium 8.4 (8.4-10.2) mg/dL Total Bilirubin 0.70 (0.1-1.2) mg/dL AST 33 (5-40) units/L ALT 16 (7-56) units/L Alkaline Phosphatase 311 H (35-129) units/L Total Protein 4.4 L (6.3-8.2) g/dL Albumin 2.0 L (3.9-5) g/dL
--- NOTE | 2017-09-22 16:07 | Progress Note ---
Assessment and Plan Assessment and plan: 62 YO Female with MO, ESRD-PD (with PD cath in place )(Daily), HTN, OA, Ischemic Cardiomyopathy who was on milrinone, Chronic Pain who came to ED with lightheaded and syncope, she c/o abdomnal pain x 2 days, was found to have hypotension, septic shock and intra-abdominal abscess. Sepsis secondary to peritonitis, Intra abdominal abscess and Bowel obstruction - continue abx, -ID on board, Currently on Meropenem and Micafungin She is now status post colostomy. She continues to have large amounts of purulent drainage from her abdominal drains. she is planned for IR drainage of peritoneal fluid on Saturday - she has had the following procedures 09/15/17: Ex lap, transverse colectomy, R colostomy and abdominal wash out 08/31: Ex lap with abdominal wash out and closure 08/17: Ex lap with G tube placement, EGD, abdominal wash out and removal of PD Cath Acute hypoxic respiratory failure on MV > 96 hours continue ventilator, planned for tracheostomy, has failed extubation multiple times planned for LTAC Acute rectal bleeding with severe acute blood loss anemia -EGD showed small gastric ulcer -sp multiple transfusions -- GI consult appreciated - Patient had CTA of abdomen and pelvis no active bleeding, CT Abdomen repeated 09/06, no acute findings - transfuse to keep Hg above 8 given septic shock -, too unstable for C scope at this time -wean steroids GIB likely from bleeding from gastric perforation and surgical wound monitor Hg and transfuse to keep above 8 now improved ESRD -continue HD per renal per femoral HD cath -needs perm cath when improved Septic shock. - continue IV pressors continue abx, ID input appreciated Ulcerative esophagitis/small gastric ulcer on EGD continue PPI Severe Protein calorie malnutrition - Continue with TPN Sacral and lower extremity wound, POA - continue wound care NSVT resolved, likely due to levophed, wean as tolerated cardiology input appreciated --DVT prophylaxis; SCDs - D/C Heparin because of GI bleed Plan of care discussed with the patient's family at bedside Disposition - continue ICU care Prognosis: guarded The high probability of a clinically significant, sudden or life threatening deterioration of the [cv, pulmonary and GI] system(s) required my full and direct attention, intervention and personal management. The aggregate critical care time was [33] minutes. This time is in addition to time spent performing reported procedures but includes the following: [] Data Review and interpretation [] Patient assessment and monitoring of vital signs [] Documentation [] Medication orders and management History Interval history: She has had no more episodes of melena today. having copious amounts of purulent output in Abdominal drains Hospitalist Physical - Physical exam Narrative exam: General.: Obese HEENT: Moist mucous membranes, extraocular muscles intact, no lymphadenopathy Neck: supple Cardiac: S1-S2 heard Lungs: clear to auscultation bilaterally Abdomen: soft, bowel sounds normal, other (obese, soft, dressing not removed) Extremities: no edema clubbing or cyanosis Skin: no rash or lesions Neurologic: trached, obeys commands, arousable - Constitutional Vitals: Temp Pulse Resp BP Pulse Ox 98.6 F 109 H 20 122/62 96 09/22/17 12:00 09/22/17 15:30 09/22/17 15:30 09/22/17 15:30 09/22/17 15:30 General appearance: Present: mild distress Results - Labs CBC & Chem 7: 09/26/17 05:25 09/26/17 05:25 Labs: Laboratory Last Values WBC 29.7 K/mm3 (4.5-11.0) H 09/22/17 07:35 RBC 2.71 M/mm3 (3.65-5.03) L 09/22/17 07:35 Hgb 8.1 gm/dl (10.1-14.3) L 09/22/17 07:35 Hct 24.1 % (30.3-42.9) L 09/22/17 07:35 MCV 89 fl (79-97) 09/22/17 07:35 MCH 30 pg (28-32) 09/22/17 07:35 MCHC 34 % (30-34) 09/22/17 07:35 RDW 19.6 % (13.2-15.2) H 09/22/17 07:35 Plt Count 491 K/mm3 (140-440) H 09/22/17 07:35 Lymph % (Auto) Tool Planer Set Up Operator 08/19/17 07:37 [place] % (Auto) Tool Planer Set Up Operator 09/13/17 Unknown Eos % (Auto) Tool Planer Set Up Operator 08/19/17 07:37 Baso % (Auto) Tool Planer Set Up Operator 08/19/17 07:37 Lymph # Tool Planer Set Up Operator 08/19/17 07:37 [place] # Tool Planer Set Up Operator 08/19/17 07:37 Eos # Tool Planer Set Up Operator 08/19/17 07:37 Baso # Tool Planer Set Up Operator 08/19/17 07:37 Add Manual Diff Complete 09/22/17 07:35 Total Counted 200 09/22/17 07:35 Seg Neutrophils % Tool Planer Set Up Operator 09/08/17 04:05 Seg Neuts % (Manual) 70.5 % (40.0-70.0) H 09/22/17 07:35 Band Neutrophils % 6.5 % 09/22/17 07:35 Lymphocytes % (Manual) 12.5 % (13.4-35.0) L 09/22/17 07:35 Reactive Lymphs % (Man) 0 % 09/22/17 07:35 Monocytes % (Manual) 10.0 % (0.0-7.3) H 09/22/17 07:35 Eosinophils % (Manual) 0 % (0.0-4.3) 09/22/17 07:35 Basophils % (Manual) 0.5 % (0.0-1.8) 09/22/17 07:35 Metamyelocytes % 0 % 09/22/17 07:35 Myelocytes % 0 % 09/22/17 07:35 Promyelocytes % 0 % 09/22/17 07:35 Blast Cells % 0 % 09/22/17 07:35 Nucleated RBC % 2.0 % (0.0-0.9) H 09/22/17 07:35 Seg Neutrophils # Tool Planer Set Up Operator 08/19/17 07:37 Seg Neutrophils # Man 20.9 K/mm3 (1.8-7.7) H 09/22/17 07:35 Band Neutrophils # 1.9 K/mm3 09/22/17 07:35 Lymphocytes # (Manual) 3.7 K/mm3 (1.2-5.4) 09/22/17 07:35 Abs React Lymphs (Man) 0.0 K/mm3 09/22/17 07:35 Monocytes # (Manual) 3.0 K/mm3 (0.0-0.8) H 09/22/17 07:35 Eosinophils # (Manual) 0.0 K/mm3 (0.0-0.4) 09/22/17 07:35 Basophils # (Manual) 0.1 K/mm3 (0.0-0.1) 09/22/17 07:35 Metamyelocytes # 0.0 K/mm3 09/22/17 07:35 Myelocytes # 0.0 K/mm3 09/22/17 07:35 Promyelocytes # 0.0 K/mm3 09/22/17 07:35 Blast Cells # 0.0 K/mm3 09/22/17 07:35 Pathologist Review Not Reportable 08/30/17 05:20 WBC Morphology Not Reportable 09/22/17 07:35 Hypersegmented Neuts Not Reportable 09/22/17 07:35 Hyposegmented Neuts Not Reportable 09/22/17 07:35 Hypogranular Neuts Not Reportable 09/22/17 07:35 Smudge Cells Not Reportable 09/22/17 07:35 Toxic Granulation Not Reportable 09/22/17 07:35 Toxic Vacuolation Not Reportable 09/22/17 07:35 Dohle Bodies Not Reportable 09/22/17 07:35 Pelger-Huet Anomaly Not Reportable 09/22/17 07:35 Ariel Rods Not Reportable 09/22/17 07:35 Platelet Estimate Consistent w auto 09/22/17 07:35 Clumped Platelets Not Reportable 09/22/17 07:35 Plt Clumps, EDTA Not Reportable 09/22/17 07:35 Large Platelets Not Reportable 09/22/17 07:35 Giant Platelets Not Reportable 09/22/17 07:35 Platelet Satelliting Not Reportable 09/22/17 07:35 Plt Morphology Comment Not Reportable 09/22/17 07:35 RBC Morphology Not Reportable 09/22/17 07:35 Dimorphic RBCs Not Reportable 09/22/17 07:35 Polychromasia Not Reportable 09/22/17 07:35 Hypochromasia Not Reportable 09/22/17 07:35 Poikilocytosis Not Reportable 09/22/17 07:35 Anisocytosis 1+ 09/22/17 07:35 Microcytosis Not Reportable 09/22/17 07:35 Macrocytosis Not Reportable 09/22/17 07:35 Spherocytes Not Reportable 09/22/17 07:35 Pappenheimer Bodies Not Reportable 09/22/17 07:35 Sickle Cells Not Reportable 09/22/17 07:35 Target Cells Not Reportable 09/22/17 07:35 Tear Drop Cells Not Reportable 09/22/17 07:35 Ovalocytes Not Reportable 09/22/17 07:35 Stomatocytes Rare 09/12/17 05:25 Helmet Cells Not Reportable 09/22/17 07:35 [place] Bodies Not Reportable 09/22/17 07:35 [place] Rings Not Reportable 09/22/17 07:35 [place] Cells Not Reportable 09/22/17 07:35 Bite Cells Not Reportable 09/22/17 07:35 Crenated Cell Not Reportable 09/22/17 07:35 Elliptocytes Not Reportable 09/22/17 07:35 Acanthocytes (Spur) Not Reportable 09/22/17 07:35 Rouleaux Not Reportable 09/22/17 07:35 Hemoglobin C Crystals Not Reportable 09/22/17 07:35 Schistocytes Not Reportable 09/22/17 07:35 Malaria parasites Not Reportable 09/22/17 07:35 [place] Bodies Not Reportable 09/22/17 07:35 Hem Pathologist Commnt No 09/22/17 07:35 PT 14.9 Sec. (12.2-14.9) 09/21/17 07:00 INR 1.11 (0.87-1.13) 09/21/17 07:00 APTT 28.7 Sec. (24.2-36.6) 08/31/17 18:15 POC ABG pH 7.347 (7.35-7.45) L 09/13/17 11:36 ABG pH 7.323 pH Units (7.350-7.450) L 09/09/17 Unknown POC ABG pCO2 34.3 (35-45) L 09/13/17 11:36 ABG pCO2 41.1 mm Hg 09/09/17 Unknown POC ABG pO2 134 (80-105) H 09/13/17 11:36 ABG pO2 94.1 mm Hg (80.0-90.0) H 09/09/17 Unknown POC ABG HCO3 18.8 09/13/17 11:36 ABG HCO3 20.9 mmol/L (20.0-26.0) 09/09/17 Unknown POC ABG Total CO2 20 09/13/17 11:36 POC ABG O2 Sat 99 09/13/17 11:36 ABG O2 Saturation 97.2 % (95.0-99.0) 09/09/17 Unknown ABG O2 Content 10.9 (0.0-44) 09/09/17 Unknown POC ABG Base Excess -7 09/13/17 11:36 ABG Base Excess -4.8 mmol/L (-2.0-3.0) L 09/09/17 Unknown ABG Hemoglobin 8.0 gm/dl (12.0-16.0) L 09/09/17 Unknown ABG Carboxyhemoglobin 2.0 % (0.0-5.0) 09/09/17 Unknown ABG Methemoglobin 0.3 % (0.0-1.5) 09/09/17 Unknown VBG pH 7.462 (7.320-7.420) H 08/08/17 14:52 Oxyhemoglobin 94.9 % (95.0-99.0) L 09/09/17 Unknown FiO2 30 % 09/13/17 11:36 Sodium 137 mmol/L (137-145) 09/22/17 03:37 Potassium 3.0 mmol/L (3.6-5.0) L 09/22/17 03:37 Chloride 95.9 mmol/L (98-107) L 09/22/17 03:37 Carbon Dioxide 22 mmol/L (22-30) 09/22/17 03:37 Anion Gap 22 mmol/L 09/22/17 03:37 BUN 74 mg/dL (7-17) H 09/22/17 03:37 Creatinine 2.1 mg/dL (0.7-1.2) H 09/22/17 03:37 Estimated GFR 29 ml/min 09/22/17 03:37 BUN/Creatinine Ratio 35 % 09/22/17 03:37 Glucose 126 mg/dL (65-100) H 09/22/17 03:37 POC Glucose 150 (70-105) H 09/22/17 05:40 Lactic Acid 1.60 mmol/L (0.7-2.0) 08/17/17 11:20 Calcium 8.4 mg/dL (8.4-10.2) 09/22/17 03:37 Phosphorus 2.10 mg/dL (2.5-4.5) L 09/22/17 03:37 Magnesium 1.40 mg/dL (1.7-2.3) L 09/22/17 03:37 Iron 22 ug/dL (37-170) L 09/12/17 05:25 TIBC 81 mcg/dL (250-450) L 09/12/17 05:25 Ferritin > 2000.0 ng/mL (13.0-400.0) H 09/12/17 05:25 Total Bilirubin 0.70 mg/dL (0.1-1.2) 09/22/17 03:37 Direct Bilirubin 0.2 mg/dL (0-0.2) 08/08/17 14:11 Indirect Bilirubin 0.3 mg/dL 08/08/17 14:11 AST 33 units/L (5-40) 09/22/17 03:37 ALT 16 units/L (7-56) 09/22/17 03:37 Alkaline Phosphatase 311 units/L (35-129) H 09/22/17 03:37 Ammonia 25.0 umol/L (25-60) 08/08/17 14:52 Total Creatine Kinase 20 units/L (30-135) L 09/16/17 05:30 Troponin T 0.132 ng/mL (0.00-0.029) H* 08/09/17 13:25 C-Reactive Protein 2.80 mg/dL (0.00-1.30) H 09/06/17 05:30 NT-Pro-B Natriuret Pep 6156 pg/mL (0-900) H 08/08/17 14:11 Total Protein 4.4 g/dL (6.3-8.2) L 09/22/17 03:37 Albumin 2.0 g/dL (3.9-5) L 09/22/17 03:37 Albumin/Globulin Ratio 0.8 % 09/22/17 03:37 Triglycerides 180 mg/dL (2-149) H 09/03/17 04:00 Cholesterol 91 mg/dL (50-199) 08/08/17 21:23 LDL Cholesterol Direct 53 mg/dL (50-130) 08/08/17 21:23 HDL Cholesterol 26 mg/dL (40-59) L 08/08/17 21:23 Cholesterol/HDL Ratio 3.50 % 08/08/17 21:23 Amylase 45 units/L (27-131) 08/16/17 09:50 Lipase 34 units/L (13-60) 08/16/17 09:50 TSH 6.580 mlU/mL (0.270-4.200) H 08/08/17 14:22 Free T4 1.46 ng/dL (0.76-1.46) 08/08/17 14:22 Total Cortisol 28.3 mcg/dL () 09/13/17 12:50 Urine Color Yellow (Yellow) 08/08/17 20:15 Urine Turbidity Turbid (Clear) 08/08/17 20:15 Urine pH 8.0 (5.0-7.0) H 08/08/17 20:15 Ur Specific [place] 1.015 (1.003-1.030) 08/08/17 20:15 Urine Protein 100 mg/dl mg/dL (Negative) 08/08/17 20:15 Urine Glucose (UA) Neg mg/dL (Negative) 08/08/17 20:15 Urine Ketones Neg mg/dL (Negative) 08/08/17 20:15 Urine Blood Mod (Negative) 08/08/17 20:15 Urine Nitrite Neg (Negative) 08/08/17 20:15 Urine Bilirubin Neg (Negative) 08/08/17 20:15 Urine Urobilinogen < 2.0 mg/dL (<2.0) 08/08/17 20:15 Ur Leukocyte Esterase Lg (Negative) 08/08/17 20:15 Urine WBC (Auto) 24.0 /HPF (0.0-6.0) H 08/08/17 20:15 Urine RBC (Auto) 3.0 /HPF (0.0-6.0) 08/08/17 20:15 U Epithel Cells (Auto) 3.0 /HPF (0-13.0) 08/08/17 20:15 Urine Bacteria (Auto) 4+ /HPF (Negative) 08/08/17 20:15 Urine Mucus 3+ /HPF 08/08/17 20:15 Fluid Type Peritoneal 08/08/17 18:18 Fluid Color Straw 08/08/17 18:18 Fluid Appearance Clear 08/08/17 18:18 Fluid pH 7.74 08/08/17 18:18 Fluid WBC 4 /mm3 08/08/17 18:18 Fluid RBC 1 /mm3 08/08/17 18:18 Fluid Seg Neutrophils 12 % 08/08/17 18:18 Fluid Lymphocytes 0 % 08/08/17 18:18 Fluid Reactive Lymphs 0 % 08/08/17 18:18 Fluid Monocytes 1 % 08/08/17 18:18 Fluid Eosinophils 0 % 08/08/17 18:18 Fluid Basophils 0 % 08/08/17 18:18 Fluid Glucose 315 mg/dL (40-70) H 08/08/17 18:18 Random Vancomycin 19.5 ug/mL (0-40.0) 08/22/17 03:40 Hep Bs Antigen Non-reactive (Negative) 08/22/17 03:40 Hepatitis C Antibody Non-reactive (NonReactive) 08/22/17 03:40 Miscellaneous Test Flexitest 1 H 09/06/17 09:57 Blood Type O POSITIVE 09/21/17 Unknown Antibody Screen Negative 09/21/17 11:50 VAN Antibody Screen Negative 09/07/17 17:07 Crossmatch See Detail 09/21/17 11:50
--- NOTE | 2017-09-22 16:41 | Progress Note ---
Assessment and Plan - Patient Problems (1) Leukocytosis Current Visit: Yes Status: Acute Qualifiers: Leukocytosis type: L Plan to address problem: See notes above. make sure that PD access is clean also. see notes. Probably infection from the infected PD catheter. improving. back up again. up/down continue to monitor. it continuos to rise. still high. improved. Back up. Now improving again. still in the same range as yesterday.. (2) Anemia Current Visit: Yes Status: Acute Qualifiers: Anemia type: A Iron deficiency anemia type: I Vitamin B12 deficiency anemia type: V Folate deficiency anemia type: F Bone marrow failure anemia type: B Hemolytic anemia type: H Other causes of anemia: O Chronic kidney disease stage: C Plan to address problem: see notes , monitor labs,. see notes above. continue to monitor labs with you. blood transfusion. S/P replacement transfusion. fair. s/p 1unit transfusion. see notes. Still at 7.4 6.9, scheduled for replacement. Fairly stable at this time. continue to monitor. If less, or equal to 7.0, will need replacement transfusion, with HD. (3) Acute respiratory failure Current Visit: Yes Status: Acute Qualifiers: Respiratory failure complication: R Plan to address problem: follow pulm. Subjective Date of service: 09/22/17 Principal diagnosis: respiratory failure, sepsis, shock rectal bleeding Interval history: Patient seen today/examined, labs reviewed, case d/w she, and family.complaints of abdominal pain. Patient resting in bed in the ICU, post vascular procedure. labs reviewed, Reactive thrombocytosis, anemia of CD, leukocytosis from infection vs inflamatory process. Patient seen/examined, in bed in the ICU, on the vent post surgery.Labs reviewed , notes reviewed. will continue to monitor labs/patient with you. Replacement transfusion, if /when indicated. patient seen/examined, SBP75, on pressors., lethargic, on the vent, labs reviewed, wbc 39,000 Patient seen/examined, case reviewed, d/w her sister at the bed side. Patient seen/examined, labs reviewed, notes reviewed. severe septic shock from infected PD catheter The high wbc is all infection related. H?H low, and may get replacement transfusion with the next HD. Prognosis remain quite poor. Patient seen/examined, extubated, now on V Mask. labs reviewed. patient seen/examined, resting in bed, still some what lethargic . labs reviewed. Patient seen/examined, resting in bed., some difficulty with breathing./ lethargic. patient seen/examined, resting in bed, looked much better labs reviewed, and fair over all. Patient seen/examined, resting in bed, labs reviewed, case d/w her. Patient seen/examined, resting in bed on BIPAP., labs reviewed. patient seen/examined, resting in bed, on Bipap.labs reviewed, fairly stable. Patient seen today, resting in bed, labs reviewed, H/H low, and transfusion already ordered. Patient seen/examined, resting in bed, transferred back to the unit, due to resp failure. She is now on venting mask. had blood replacement done. Patient seen/examined in the ICU.labs reviewed. patient intubated this am. patient resting in bed.no new issues. Patient seen/examined in the ICU, on vent,Not readily responsive. patient seen, resting in bed, no new cbc ready.will order for today. Patient seen, resting in vent, labs reviewed.notes reviewed also. patient seen/examined, resting on vent, had HD yesterday, and today., labs reviewed. Patient seen, resting in bed, labs reviewed.fairly stable labs, except the wbc. Patient seen/examined, rtesting in bed on the vent.Labs reviewed, wbc still elevated, Hgb dropped slightly. Patient seen/examined, labs reviewed, hgb 7.3, if 7.0 or less, will replace .unless otherwise indicated. Patient seen/examined, alert but lethargic.sedation drip turned down.she is s/p 1unit PRBC replacement with HD today. Patient seen/examined, labs reviewed, hgb still not quite enough at 7.5, perhaps with the next HD,can use 1-2 units. Patient seen/examined, resting in bed, trached, labs re viewed. Patient seen/examined, resting in bed, responds to name calling, SBP99, labs reviewed, Hgb 6.9, PRBC replacement ordered by primary. Patient seen/examined, in bed/trach, NGT., alert/lethargic. Patient seen/examined, resting in bed, still lethargic, labs reviewed, and still fair.Will continue to follow you. Patient seen/examined, resting in bed, labs reviewed. HD in progress.She is now getting daily HD.Labs reviewed, and still fair. Patient seen/examined, resting in bed, less lethargic/less toxic looking. labs have improved. Patient seen/examined, labs reviewed, fair, case d/w her spouse at the bed side. Patient seen/examined, resting ok in bed, alert, NAD, HD in progress.Labs reviewed, and WBC 27,000, Hgb 7.8. Patient seen/examined, resting in bed in the ICU, NAD.labs reviewed, and fair. Objective - Constitutional Vitals: Vital Signs - 12hr 09/22/17 09/22/17 09/22/17 04:46 05:00 05:15 Temperature Pulse Rate 108 H 106 H 102 H Respiratory 16 18 16 Rate Blood Pressure 127/51 127/51 132/72 O2 Sat by Pulse 100 100 100 Oximetry 09/22/17 09/22/17 09/22/17 05:30 05:46 05:56 Temperature Pulse Rate 108 H 111 H Respiratory 20 26 H 21 Rate Blood Pressure 133/68 143/69 O2 Sat by Pulse 100 100 Oximetry 09/22/17 09/22/17 09/22/17 06:00 06:16 06:30 Temperature Pulse Rate 105 H 97 H 105 H Respiratory 21 19 22 Rate Blood Pressure 145/80 134/53 134/53 O2 Sat by Pulse 100 100 100 Oximetry 09/22/17 09/22/17 09/22/17 06:46 07:00 07:15 Temperature Pulse Rate 111 H 110 H 103 H Respiratory 23 17 27 H Rate Blood Pressure 132/70 132/70 134/78 O2 Sat by Pulse 99 100 100 Oximetry 09/22/17 09/22/17 09/22/17 07:30 07:46 08:00 Temperature 98.2 F Pulse Rate 106 H 110 H 103 H Respiratory 18 19 22 Rate Blood Pressure 134/78 131/62 126/61 O2 Sat by Pulse 100 100 98 Oximetry 09/22/17 09/22/17 09/22/17 08:16 08:30 08:46 Temperature Pulse Rate 105 H 108 H 102 H Respiratory 25 H 25 H 24 Rate Blood Pressure 127/70 127/70 125/66 O2 Sat by Pulse 99 100 100 Oximetry 09/22/17 09/22/17 09/22/17 08:48 09:00 09:04 Temperature Pulse Rate 100 H 107 H 99 H Respiratory 26 H 28 H Rate Blood Pressure 125/66 142/67 142/67 O2 Sat by Pulse 99 100 100 Oximetry 09/22/17 09/22/17 09/22/17 09:15 09:30 09:45 Temperature Pulse Rate 100 H 101 H 108 H Respiratory 32 H 34 H 33 H Rate Blood Pressure 131/62 137/53 131/53 O2 Sat by Pulse 100 100 100 Oximetry 09/22/17 09/22/17 09/22/17 10:00 10:15 10:30 Temperature Pulse Rate 108 H 113 H 105 H Respiratory 30 H 31 H 36 H Rate Blood Pressure 120/59 129/70 129/70 O2 Sat by Pulse 100 100 100 Oximetry 09/22/17 09/22/17 09/22/17 10:45 11:00 11:15 Temperature Pulse Rate 108 H 106 H 100 H Respiratory 36 H 33 H 24 Rate Blood Pressure 133/66 120/58 127/65 O2 Sat by Pulse 100 100 99 Oximetry 09/22/17 09/22/17 09/22/17 11:23 11:30 11:45 Temperature Pulse Rate 108 H 108 H 104 H Respiratory 34 H 33 H 37 H Rate Blood Pressure 127/65 116/56 124/65 O2 Sat by Pulse 100 99 100 Oximetry 09/22/17 09/22/17 09/22/17 12:00 12:15 12:30 Temperature 98.6 F Pulse Rate 102 H 112 H 105 H Respiratory 39 H 36 H 36 H Rate Blood Pressure 127/59 129/72 140/65 O2 Sat by Pulse 100 100 100 Oximetry 09/22/17 09/22/17 09/22/17 12:45 13:00 13:16 Temperature Pulse Rate 111 H 114 H 116 H Respiratory 34 H 39 H 33 H Rate Blood Pressure 133/78 128/71 135/66 O2 Sat by Pulse 98 99 98 Oximetry 09/22/17 09/22/17 09/22/17 13:30 13:35 13:46 Temperature Pulse Rate 109 H 101 H 100 H Respiratory 22 20 Rate Blood Pressure 112/61 112/61 98/53 O2 Sat by Pulse 100 100 100 Oximetry 09/22/17 09/22/17 09/22/17 14:00 14:15 14:30 Temperature Pulse Rate 104 H 96 H 100 H Respiratory 19 19 14 Rate Blood Pressure 115/55 105/54 114/56 O2 Sat by Pulse 100 99 99 Oximetry 09/22/17 09/22/17 09/22/17 14:45 15:00 15:15 Temperature Pulse Rate 109 H 104 H 105 H Respiratory 20 22 19 Rate Blood Pressure 119/59 116/65 118/61 O2 Sat by Pulse 100 97 98 Oximetry 09/22/17 09/22/17 09/22/17 15:16 15:30 15:45 Temperature Pulse Rate 100 H 109 H 109 H Respiratory 20 15 Rate Blood Pressure 118/61 122/62 114/63 O2 Sat by Pulse 98 96 100 Oximetry 09/22/17 16:00 Temperature 98.0 F Pulse Rate 101 H Respiratory 19 Rate Blood Pressure 114/63 O2 Sat by Pulse 95 Oximetry General appearance: Present: well-nourished - EENT Eyes: PERRL, EOM intact ENT: hearing intact, clear oral mucosa Ears: bilateral: normal - Neck Neck: supple, normal ROM - Respiratory Respiratory: bilateral: diminished - Breasts Breasts: deferred - Cardiovascular Rhythm: regular Heart Sounds: Present: S1 & S2. Absent: gallop, rub Extremities: pulses intact, No edema, normal color, Full ROM - Gastrointestinal General gastrointestinal: Present: soft, non-tender, non-distended, normal bowel sounds - Genitourinary Female genitourinary: deferred - Integumentary Integumentary: clear, warm, dry - Musculoskeletal Musculoskeletal: 1, strength equal bilaterally - Neurologic Neurologic: moves all extremities - Psychiatric Psychiatric: appropriate mood/affect, memory intact - Labs CBC & Chem 7: 09/22/17 07:35 09/22/17 03:37 Labs: Abnormal lab results 09/21/17 09/21/17 09/22/17 Range/Units 13:03 16:39 00:09 WBC (4.5-11.0) K/mm3 RBC (3.65-5.03) M/mm3 Hgb (10.1-14.3) gm/dl Hct (30.3-42.9) % RDW (13.2-15.2) % Plt Count (140-440) K/mm3 Seg Neuts % (Manual) (40.0-70.0) % Lymphocytes % (Manual) (13.4-35.0) % Monocytes % (Manual) (0.0-7.3) % Nucleated RBC % (0.0-0.9) % Seg Neutrophils # Man (1.8-7.7) K/mm3 Monocytes # (Manual) (0.0-0.8) K/mm3 Potassium (3.6-5.0) mmol/L Chloride (98-107) mmol/L BUN (7-17) mg/dL Creatinine (0.7-1.2) mg/dL Glucose (65-100) mg/dL POC Glucose 271 H 160 H 191 H (70-105) Phosphorus (2.5-4.5) mg/dL Magnesium (1.7-2.3) mg/dL Alkaline Phosphatase (35-129) units/L Total Protein (6.3-8.2) g/dL Albumin (3.9-5) g/dL 09/22/17 09/22/17 09/22/17 Range/Units 03:37 05:40 07:35 WBC 29.7 H (4.5-11.0) K/mm3 RBC 2.71 L (3.65-5.03) M/mm3 Hgb 8.1 L (10.1-14.3) gm/dl Hct 24.1 L (30.3-42.9) % RDW 19.6 H (13.2-15.2) % Plt Count 491 H (140-440) K/mm3 Seg Neuts % (Manual) 70.5 H (40.0-70.0) % Lymphocytes % (Manual) 12.5 L (13.4-35.0) % Monocytes % (Manual) 10.0 H (0.0-7.3) % Nucleated RBC % 2.0 H (0.0-0.9) % Seg Neutrophils # Man 20.9 H (1.8-7.7) K/mm3 Monocytes # (Manual) 3.0 H (0.0-0.8) K/mm3 Potassium 3.0 L (3.6-5.0) mmol/L Chloride 95.9 L (98-107) mmol/L BUN 74 H (7-17) mg/dL Creatinine 2.1 H (0.7-1.2) mg/dL Glucose 126 H (65-100) mg/dL POC Glucose 150 H (70-105) Phosphorus 2.10 L (2.5-4.5) mg/dL Magnesium 1.40 L (1.7-2.3) mg/dL Alkaline Phosphatase 311 H (35-129) units/L Total Protein 4.4 L (6.3-8.2) g/dL Albumin 2.0 L (3.9-5) g/dL
[2017-09-22] MEDS ORDERED: TPN ADULT 1,800 ML IV SCH (20:00)
[2017-09-23] MEDS: NOVOLOG SUB-Q SCH ×5 (01:22→23:55)
[2017-09-23 05:09] LABS: Hematocrit 22.9 % (30.3-42.9); Hemoglobin 7.3 gm/dl (10.1-14.3); Mean Corpuscular HGB Conc 32 % (30-34); Mean Corpuscular Hemoglobin 29 pg (28-32); Mean Corpuscular Volume 90 fl (79-97); Platelet Count 471 K/mm3 (140-440); Red Blood Count 2.54 M/mm3 (3.65-5.03); Red Cell Distribution Width 19.4 % (13.2-15.2)
[2017-09-23 05:11] LABS: White Blood Count 37.5 K/mm3 (4.5-11.0)
[2017-09-23 05:50] LABS: Basophils % (Manual) 0 % (0.0-1.8); Blastocytes % (Manual) 0 %; Diff Status Complete; Eosinophils % (Manual) 0 % (0.0-4.3); Platelet Clumps Few; Platelet Estimate Consistent w Auto
[2017-09-23 05:58] LABS: Calcium 8.2 mg/dL (8.4-10.2); Chloride 93.8 mmol/L (98-107); Magnesium 1.9 mg/dL (1.7-2.3); Phosphorous 2.4 mg/dL (2.5-4.5)
[2017-09-23] MEDS ORDERED: NACL 0.9% 100 ML IV PRN (07:55)
--- NOTE | 2017-09-23 07:55 | Progress Note ---
Assessment and Plan - Patient Problems (1) ESRD (end stage renal disease) on dialysis Current Visit: Yes Status: Acute Plan to address problem: Continue HD on MWF and Isolated UF on TTS as tolerated. HD today with 3K bath. Mostly patient is tolerating fluid removal with hemodialysis. Patient is on TPN. Monitor lytes. (2) Anemia Current Visit: No Status: Chronic Qualifiers: Anemia type: due to chronic kidney disease Iron deficiency anemia type: I Vitamin B12 deficiency anemia type: V Folate deficiency anemia type: F Bone marrow failure anemia type: B Hemolytic anemia type: H Other causes of anemia: O Chronic kidney disease stage: on chronic dialysis Qualified Code(s ): N18.6 - End stage renal disease; D63.1 - Anemia in chronic kidney disease; Z99.2 - Dependence on renal dialysis Plan to address problem: S/p multiple units of PRBC. Patient continues to drop Hb level. Epogen on dialysis days. Unable to give IV Iron due to high Ferritin level. (3) Hypotension Current Visit: Yes Status: Chronic Qualifiers: Hypotension type: H Trimester: T Plan to address problem: Off pressors. (4) Volume overload Current Visit: Yes Status: Acute Qualifiers: Hypervolemia type: H Plan to address problem: UF as tolerated. (5) Leukocytosis Current Visit: Yes Status: Acute Qualifiers: Leukocytosis type: unspecified Qualified Code(s): D72.829 - Elevated white blood cell count, unspecified (6) Acute respiratory failure with hypoxemia Current Visit: Yes Status: Acute Plan to address problem: On the vent. (7) Sepsis Current Visit: Yes Status: Acute Qualifiers: Sepsis type: S Subjective Date of service: 09/23/17 Principal diagnosis: respiratory failure, sepsis, shock rectal bleeding Interval history: Patient was seen and examined at the bedside. Remain on the vent. Objective - Vital Signs Vital signs: Vital Signs - 12hr 09/22/17 09/22/17 09/22/17 19:57 20:00 20:15 Temperature 97.4 F L Pulse Rate 103 H 104 H 102 H Pulse Rate [ 110 H Apical] Respiratory 19 26 H Rate Blood Pressure 114/57 110/68 106/44 O2 Sat by Pulse 100 100 98 Oximetry O2 Sat by Pulse Oximetry [ Assessment] 09/22/17 09/22/17 09/22/17 20:30 20:46 21:00 Temperature Pulse Rate 97 H 106 H 108 H Pulse Rate [ Apical] Respiratory 20 16 24 Rate Blood Pressure 103/50 117/60 117/60 O2 Sat by Pulse 97 100 99 Oximetry O2 Sat by Pulse Oximetry [ Assessment] 09/22/17 09/22/17 09/22/17 21:16 21:30 21:46 Temperature Pulse Rate 99 H 95 H 97 H Pulse Rate [ Apical] Respiratory 19 19 14 Rate Blood Pressure 136/67 116/55 116/55 O2 Sat by Pulse 100 100 100 Oximetry O2 Sat by Pulse Oximetry [ Assessment] 09/22/17 09/22/17 09/22/17 22:00 22:11 22:16 Temperature Pulse Rate 101 H 94 H Pulse Rate [ Apical] Respiratory 19 20 23 Rate Blood Pressure 126/63 126/63 O2 Sat by Pulse 100 99 100 Oximetry O2 Sat by Pulse Oximetry [ Assessment] 09/22/17 09/22/17 09/22/17 22:30 22:46 23:00 Temperature Pulse Rate 100 H 98 H 108 H Pulse Rate [ Apical] Respiratory 26 H 20 26 H Rate Blood Pressure 131/62 131/62 131/62 O2 Sat by Pulse 99 100 100 Oximetry O2 Sat by Pulse Oximetry [ Assessment] 09/22/17 09/22/17 09/22/17 23:16 23:29 23:30 Temperature Pulse Rate 114 H 102 H Pulse Rate [ Apical] Respiratory 22 25 H 24 Rate Blood Pressure 132/63 116/79 O2 Sat by Pulse 100 100 Oximetry O2 Sat by Pulse Oximetry [ Assessment] 09/22/17 09/22/17 09/22/17 23:36 23:38 23:46 Temperature 98.2 F Pulse Rate 100 H 105 H Pulse Rate [ Apical] Respiratory 24 17 Rate Blood Pressure 116/79 116/79 O2 Sat by Pulse 100 100 Oximetry O2 Sat by Pulse Oximetry [ Assessment] 09/23/17 09/23/17 09/23/17 00:00 00:10 00:16 Temperature Pulse Rate 95 H 95 H Pulse Rate [ 94 H Apical] Respiratory 21 16 Rate Blood Pressure 126/67 126/67 O2 Sat by Pulse 98 97 Oximetry O2 Sat by Pulse 100 Oximetry [ Assessment] 09/23/17 09/23/17 09/23/17 00:30 00:46 01:00 Temperature Pulse Rate 103 H 97 H 100 H Pulse Rate [ Apical] Respiratory 24 20 23 Rate Blood Pressure 122/57 122/57 115/58 O2 Sat by Pulse 100 Oximetry O2 Sat by Pulse Oximetry [ Assessment] 09/23/17 09/23/17 09/23/17 01:16 01:30 01:46 Temperature Pulse Rate 101 H 98 H 99 H Pulse Rate [ Apical] Respiratory 19 18 14 Rate Blood Pressure 115/58 117/56 117/56 O2 Sat by Pulse Oximetry O2 Sat by Pulse Oximetry [ Assessment] 09/23/17 09/23/17 09/23/17 02:00 02:16 02:30 Temperature Pulse Rate 101 H 92 H 102 H Pulse Rate [ Apical] Respiratory 19 22 24 Rate Blood Pressure 115/56 115/56 117/57 O2 Sat by Pulse 100 Oximetry O2 Sat by Pulse Oximetry [ Assessment] 09/23/17 09/23/17 09/23/17 02:46 03:00 03:16 Temperature Pulse Rate 103 H 100 H 103 H Pulse Rate [ Apical] Respiratory 22 22 22 Rate Blood Pressure 117/57 118/54 118/54 O2 Sat by Pulse Oximetry O2 Sat by Pulse Oximetry [ Assessment] 09/23/17 09/23/17 09/23/17 03:30 03:46 03:56 Temperature 99.6 F Pulse Rate 102 H 103 H Pulse Rate [ Apical] Respiratory 23 21 Rate Blood Pressure 125/52 125/52 O2 Sat by Pulse 96 Oximetry O2 Sat by Pulse Oximetry [ Assessment] 09/23/17 09/23/17 09/23/17 04:00 04:16 04:23 Temperature Pulse Rate 102 H 98 H 103 H Pulse Rate [ 101 H Apical] Respiratory 21 20 Rate Blood Pressure 114/60 114/60 125/52 O2 Sat by Pulse 99 94 Oximetry O2 Sat by Pulse Oximetry [ Assessment] 09/23/17 09/23/17 09/23/17 04:30 04:46 05:00 Temperature Pulse Rate 103 H 104 H 113 H Pulse Rate [ Apical] Respiratory 15 21 18 Rate Blood Pressure 127/57 127/57 127/57 O2 Sat by Pulse 100 91 73 L Oximetry O2 Sat by Pulse Oximetry [ Assessment] 09/23/17 09/23/17 09/23/17 05:15 05:31 05:45 Temperature Pulse Rate 108 H 106 H 109 H Pulse Rate [ Apical] Respiratory 16 24 15 Rate Blood Pressure 119/61 119/61 82/42 O2 Sat by Pulse 93 83 L Oximetry O2 Sat by Pulse Oximetry [ Assessment] 09/23/17 09/23/17 09/23/17 06:00 06:15 06:30 Temperature Pulse Rate 103 H 100 H 104 H Pulse Rate [ Apical] Respiratory 26 H 17 22 Rate Blood Pressure 108/49 108/49 117/49 O2 Sat by Pulse 100 100 100 Oximetry O2 Sat by Pulse Oximetry [ Assessment] 09/23/17 09/23/17 09/23/17 06:45 07:00 07:15 Temperature Pulse Rate 105 H 101 H 102 H Pulse Rate [ Apical] Respiratory 22 23 24 Rate Blood Pressure 117/49 122/54 122/54 O2 Sat by Pulse 100 100 100 Oximetry O2 Sat by Pulse Oximetry [ Assessment] 09/23/17 09/23/17 07:30 07:45 Temperature Pulse Rate 102 H 94 H Pulse Rate [ Apical] Respiratory 22 21 Rate Blood Pressure 124/50 124/50 O2 Sat by Pulse 100 100 Oximetry O2 Sat by Pulse Oximetry [ Assessment] - General Appearance General appearance: well-developed, appears stated age, obese, other (on vent, FiO2 25%) EENT: ATNC, PERRL Neck: other (trached) Respiratory: Present: Clear to Ascultation Cardiology: regular, S1S2, no murmurs Gastrointestinal: other (dressing, ostomy, PEG tube and MERVIN drain noted) Integumentary: no rash Neurologic: other (alert, not following any command) Musculoskeletal: other (2+ edema of both LEs noted) - Lab 09/23/17 05:02 09/23/17 05:02 Most recent lab results ABG pH 7.323 pH Units (7.350-7.450) L 09/09/17 Unknown ABG pCO2 41.1 mm Hg 09/09/17 Unknown ABG pO2 94.1 mm Hg (80.0-90.0) H 09/09/17 Unknown ABG HCO3 20.9 mmol/L (20.0-26.0) 09/09/17 Unknown ABG O2 Saturation 97.2 % (95.0-99.0) 09/09/17 Unknown Calcium 8.2 mg/dL (8.4-10.2) L 09/23/17 05:02 Phosphorus 2.40 mg/dL (2.5-4.5) L 09/23/17 05:02 Magnesium 1.90 mg/dL (1.7-2.3) 09/23/17 05:02
--- NOTE | 2017-09-23 09:07 | Progress Note ---
Assessment and Plan - Patient Problems (1) Leukocytosis Current Visit: Yes Status: Acute Qualifiers: Leukocytosis type: L Plan to address problem: See notes above. make sure that PD access is clean also. see notes. Probably infection from the infected PD catheter. improving. back up again. up/down continue to monitor. it continuos to rise. still high. improved. Back up. Now improving again. still in the same range as yesterday.. worse today. (2) Anemia Current Visit: Yes Status: Acute Qualifiers: Anemia type: A Iron deficiency anemia type: I Vitamin B12 deficiency anemia type: V Folate deficiency anemia type: F Bone marrow failure anemia type: B Hemolytic anemia type: H Other causes of anemia: O Chronic kidney disease stage: C (3) Acute respiratory failure Current Visit: Yes Status: Acute Qualifiers: Respiratory failure complication: R Subjective Date of service: 09/23/17 Principal diagnosis: respiratory failure, sepsis, shock rectal bleeding Interval history: Patient seen today/examined, labs reviewed, case d/w she, and family.complaints of abdominal pain. Patient resting in bed in the ICU, post vascular procedure. labs reviewed, Reactive thrombocytosis, anemia of CD, leukocytosis from infection vs inflamatory process. Patient seen/examined, in bed in the ICU, on the vent post surgery.Labs reviewed , notes reviewed. will continue to monitor labs/patient with you. Replacement transfusion, if /when indicated. patient seen/examined, SBP75, on pressors., lethargic, on the vent, labs reviewed, wbc 39,000 Patient seen/examined, case reviewed, d/w her sister at the bed side. Patient seen/examined, labs reviewed, notes reviewed. severe septic shock from infected PD catheter The high wbc is all infection related. H?H low, and may get replacement transfusion with the next HD. Prognosis remain quite poor. Patient seen/examined, extubated, now on V Mask. labs reviewed. patient seen/examined, resting in bed, still some what lethargic . labs reviewed. Patient seen/examined, resting in bed., some difficulty with breathing./ lethargic. patient seen/examined, resting in bed, looked much better labs reviewed, and fair over all. Patient seen/examined, resting in bed, labs reviewed, case d/w her. Patient seen/examined, resting in bed on BIPAP., labs reviewed. patient seen/examined, resting in bed, on Bipap.labs reviewed, fairly stable. Patient seen today, resting in bed, labs reviewed, H/H low, and transfusion already ordered. Patient seen/examined, resting in bed, transferred back to the unit, due to resp failure. She is now on venting mask. had blood replacement done. Patient seen/examined in the ICU.labs reviewed. patient intubated this am. patient resting in bed.no new issues. Patient seen/examined in the ICU, on vent,Not readily responsive. patient seen, resting in bed, no new cbc ready.will order for today. Patient seen, resting in vent, labs reviewed.notes reviewed also. patient seen/examined, resting on vent, had HD yesterday, and today., labs reviewed. Patient seen, resting in bed, labs reviewed.fairly stable labs, except the wbc. Patient seen/examined, rtesting in bed on the vent.Labs reviewed, wbc still elevated, Hgb dropped slightly. Patient seen/examined, labs reviewed, hgb 7.3, if 7.0 or less, will replace .unless otherwise indicated. Patient seen/examined, alert but lethargic.sedation drip turned down.she is s/p 1unit PRBC replacement with HD today. Patient seen/examined, labs reviewed, hgb still not quite enough at 7.5, perhaps with the next HD,can use 1-2 units. Patient seen/examined, resting in bed, trached, labs re viewed. Patient seen/examined, resting in bed, responds to name calling, SBP99, labs reviewed, Hgb 6.9, PRBC replacement ordered by primary. Patient seen/examined, in bed/trach, NGT., alert/lethargic. Patient seen/examined, resting in bed, still lethargic, labs reviewed, and still fair.Will continue to follow you. Patient seen/examined, resting in bed, labs reviewed. HD in progress.She is now getting daily HD.Labs reviewed, and still fair. Patient seen/examined, resting in bed, less lethargic/less toxic looking. labs have improved. Patient seen/examined, labs reviewed, fair, case d/w her spouse at the bed side. Patient seen/examined, resting ok in bed, alert, NAD, HD in progress.Labs reviewed, and WBC 27,000, Hgb 7.8. Patient seen/examined, resting in bed in the ICU, NAD.labs reviewed, and fair. Patient seen/examined, resting in bed, labs reviewed, WBC back up,to37,000, and Hgb down to 7.3, transfusion will be needed ,if hgb less, or equal to 7.0 Objective - Constitutional Vitals: Vital Signs - 12hr 09/22/17 09/22/17 09/22/17 21:16 21:30 21:46 Temperature Pulse Rate 99 H 95 H 97 H Pulse Rate [ Apical] Respiratory 19 19 14 Rate Blood Pressure 136/67 116/55 116/55 O2 Sat by Pulse 100 100 100 Oximetry O2 Sat by Pulse Oximetry [ Assessment] 09/22/17 09/22/17 09/22/17 22:00 22:11 22:16 Temperature Pulse Rate 101 H 94 H Pulse Rate [ Apical] Respiratory 19 20 23 Rate Blood Pressure 126/63 126/63 O2 Sat by Pulse 100 99 100 Oximetry O2 Sat by Pulse Oximetry [ Assessment] 09/22/17 09/22/17 09/22/17 22:30 22:46 23:00 Temperature Pulse Rate 100 H 98 H 108 H Pulse Rate [ Apical] Respiratory 26 H 20 26 H Rate Blood Pressure 131/62 131/62 131/62 O2 Sat by Pulse 99 100 100 Oximetry O2 Sat by Pulse Oximetry [ Assessment] 09/22/17 09/22/17 09/22/17 23:16 23:29 23:30 Temperature Pulse Rate 114 H 102 H Pulse Rate [ Apical] Respiratory 22 25 H 24 Rate Blood Pressure 132/63 116/79 O2 Sat by Pulse 100 100 Oximetry O2 Sat by Pulse Oximetry [ Assessment] 09/22/17 09/22/17 09/22/17 23:36 23:38 23:46 Temperature 98.2 F Pulse Rate 100 H 105 H Pulse Rate [ Apical] Respiratory 24 17 Rate Blood Pressure 116/79 116/79 O2 Sat by Pulse 100 100 Oximetry O2 Sat by Pulse Oximetry [ Assessment] 09/23/17 09/23/17 09/23/17 00:00 00:10 00:16 Temperature Pulse Rate 95 H 95 H Pulse Rate [ 94 H Apical] Respiratory 21 16 Rate Blood Pressure 126/67 126/67 O2 Sat by Pulse 98 97 Oximetry O2 Sat by Pulse 100 Oximetry [ Assessment] 09/23/17 09/23/17 09/23/17 00:30 00:46 01:00 Temperature Pulse Rate 103 H 97 H 100 H Pulse Rate [ Apical] Respiratory 24 20 23 Rate Blood Pressure 122/57 122/57 115/58 O2 Sat by Pulse 100 Oximetry O2 Sat by Pulse Oximetry [ Assessment] 09/23/17 09/23/17 09/23/17 01:16 01:30 01:46 Temperature Pulse Rate 101 H 98 H 99 H Pulse Rate [ Apical] Respiratory 19 18 14 Rate Blood Pressure 115/58 117/56 117/56 O2 Sat by Pulse Oximetry O2 Sat by Pulse Oximetry [ Assessment] 09/23/17 09/23/17 09/23/17 02:00 02:16 02:30 Temperature Pulse Rate 101 H 92 H 102 H Pulse Rate [ Apical] Respiratory 19 22 24 Rate Blood Pressure 115/56 115/56 117/57 O2 Sat by Pulse 100 Oximetry O2 Sat by Pulse Oximetry [ Assessment] 09/23/17 09/23/17 09/23/17 02:46 03:00 03:16 Temperature Pulse Rate 103 H 100 H 103 H Pulse Rate [ Apical] Respiratory 22 22 22 Rate Blood Pressure 117/57 118/54 118/54 O2 Sat by Pulse Oximetry O2 Sat by Pulse Oximetry [ Assessment] 09/23/17 09/23/17 09/23/17 03:30 03:46 03:56 Temperature 99.6 F Pulse Rate 102 H 103 H Pulse Rate [ Apical] Respiratory 23 21 Rate Blood Pressure 125/52 125/52 O2 Sat by Pulse 96 Oximetry O2 Sat by Pulse Oximetry [ Assessment] 09/23/17 09/23/17 09/23/17 04:00 04:16 04:23 Temperature Pulse Rate 102 H 98 H 103 H Pulse Rate [ 101 H Apical] Respiratory 21 20 Rate Blood Pressure 114/60 114/60 125/52 O2 Sat by Pulse 99 94 Oximetry O2 Sat by Pulse Oximetry [ Assessment] 09/23/17 09/23/17 09/23/17 04:30 04:46 05:00 Temperature Pulse Rate 103 H 104 H 113 H Pulse Rate [ Apical] Respiratory 15 21 18 Rate Blood Pressure 127/57 127/57 127/57 O2 Sat by Pulse 100 91 73 L Oximetry O2 Sat by Pulse Oximetry [ Assessment] 09/23/17 09/23/17 09/23/17 05:15 05:31 05:45 Temperature Pulse Rate 108 H 106 H 109 H Pulse Rate [ Apical] Respiratory 16 24 15 Rate Blood Pressure 119/61 119/61 82/42 O2 Sat by Pulse 93 83 L Oximetry O2 Sat by Pulse Oximetry [ Assessment] 09/23/17 09/23/17 09/23/17 06:00 06:15 06:30 Temperature Pulse Rate 103 H 100 H 104 H Pulse Rate [ Apical] Respiratory 26 H 17 22 Rate Blood Pressure 108/49 108/49 117/49 O2 Sat by Pulse 100 100 100 Oximetry O2 Sat by Pulse Oximetry [ Assessment] 09/23/17 09/23/17 09/23/17 06:45 07:00 07:15 Temperature Pulse Rate 105 H 101 H 102 H Pulse Rate [ Apical] Respiratory 22 23 24 Rate Blood Pressure 117/49 122/54 122/54 O2 Sat by Pulse 100 100 100 Oximetry O2 Sat by Pulse Oximetry [ Assessment] 09/23/17 09/23/17 09/23/17 07:30 07:45 08:00 Temperature 97.4 F L Pulse Rate 102 H 94 H 102 H Pulse Rate [ Apical] Respiratory 22 21 23 Rate Blood Pressure 124/50 124/50 128/52 O2 Sat by Pulse 100 100 100 Oximetry O2 Sat by Pulse Oximetry [ Assessment] 09/23/17 08:05 Temperature Pulse Rate 103 H Pulse Rate [ Apical] Respiratory Rate Blood Pressure 128/52 O2 Sat by Pulse 100 Oximetry O2 Sat by Pulse Oximetry [ Assessment] General appearance: Present: mild distress - EENT Eyes: PERRL, EOM intact ENT: hearing intact, clear oral mucosa Ears: bilateral: normal - Neck Neck: supple, normal ROM - Respiratory Respiratory: bilateral: diminished - Breasts Breasts: deferred - Cardiovascular Rhythm: regular Heart Sounds: Present: S1 & S2. Absent: gallop, rub Extremities: pulses intact, No edema, normal color, Full ROM - Gastrointestinal General gastrointestinal: Present: soft, non-tender, non-distended, normal bowel sounds Rectal Exam: deferred - Genitourinary Female genitourinary: deferred - Integumentary Integumentary: clear, warm, dry - Musculoskeletal Musculoskeletal: 1, strength equal bilaterally - Neurologic Neurologic: moves all extremities - Psychiatric Psychiatric: appropriate mood/affect, memory intact - Labs CBC & Chem 7: 09/23/17 05:02 09/23/17 05:02 Labs: Abnormal lab results 09/22/17 09/22/17 09/23/17 Range/Units 07:35 12:20 05:02 WBC 37.5 H (4.5-11.0) K/mm3 RBC 2.54 L (3.65-5.03) M/mm3 Hgb 7.3 L (10.1-14.3) gm/dl Hct 22.9 L (30.3-42.9) % RDW 19.4 H (13.2-15.2) % Plt Count 471 H (140-440) K/mm3 Seg Neuts % (Manual) 70.5 H (40.0-70.0) % Lymphocytes % (Manual) 12.5 L 8.0 L (13.4-35.0) % Monocytes % (Manual) 10.0 H (0.0-7.3) % Nucleated RBC % 2.0 H 1.0 H (0.0-0.9) % Seg Neutrophils # Man 20.9 H 15.0 H (1.8-7.7) K/mm3 Monocytes # (Manual) 3.0 H 1.9 H (0.0-0.8) K/mm3 Sodium (137-145) mmol/L Potassium (3.6-5.0) mmol/L Chloride (98-107) mmol/L BUN (7-17) mg/dL Creatinine (0.7-1.2) mg/dL POC Glucose 106 H (70-105) Calcium (8.4-10.2) mg/dL Phosphorus (2.5-4.5) mg/dL 09/23/17 09/23/17 Range/Units 05:02 05:39 WBC (4.5-11.0) K/mm3 RBC (3.65-5.03) M/mm3 Hgb (10.1-14.3) gm/dl Hct (30.3-42.9) % RDW (13.2-15.2) % Plt Count (140-440) K/mm3 Seg Neuts % (Manual) (40.0-70.0) % Lymphocytes % (Manual) (13.4-35.0) % Monocytes % (Manual) (0.0-7.3) % Nucleated RBC % (0.0-0.9) % Seg Neutrophils # Man (1.8-7.7) K/mm3 Monocytes # (Manual) (0.0-0.8) K/mm3 Sodium 136 L (137-145) mmol/L Potassium 3.0 L (3.6-5.0) mmol/L Chloride 93.8 L (98-107) mmol/L BUN 99 H (7-17) mg/dL Creatinine 2.7 H (0.7-1.2) mg/dL POC Glucose 118 H (70-105) Calcium 8.2 L (8.4-10.2) mg/dL Phosphorus 2.40 L (2.5-4.5) mg/dL
[2017-09-23] MEDS: LEVEMIR SUB-Q SCH (09:41)
[2017-09-23] MEDS: PROTONIX IV SCH (09:41)
[2017-09-23] MEDS: LEVOPHED 8 MG in NACL 0.9% 250ML 242 ML IV SCH ×3 (12:06→23:00)
--- NOTE | 2017-09-23 12:30 | Progress Note ---
Assessment and Plan Assessment and plan: Septic shock. Patient with abdominal abscess and CAUTI. ID following. Continue antibiotics per ID. Currently on Meropenem and Micafungin Acute hypoxic respiratory failure. Patient remains on mechanical ventilation postoperatively. Continue weaning per pulmonary Urinary retention/ ? Infected stents. Urology to coordinate stent exchange this week. Renal us -- no hydro, Peritonitis/intra-abdominal abscess/Bowel obstruction. 09/15/17: Ex lap, transverse colectomy, R colostomy and abdominal wash out 08/31: Ex lap with abdominal wash out and closure 08/17: Ex lap with G tube placement, EGD, abdominal wash out and removal of PD Cath she is planned for IR drainage of peritoneal fluid on today End-stage renal disease -Hemodialysis per nephrology. -needs perm cath when improved Ulcerative esophagitis/small gastric ulcer. Patient status post EGD. s/p multiple transfusions -Patient had CTA of abdomen and pelvis no active bleeding, CT Abdomen repeated 09/06, no acute findings CAUTI. Continue antibiotics Protein calorie malnutrition. -Continue TPN. Leukocytosis. -worse--??steroids - ID following -Follow up CBC NSVT cardiology believes that etiology was secondary to Levophed which now has been weaned off History of cervical surgery and postoperative wheelchair bound since then - pain control DVT prophylaxis Disposition - Prognosis is extremely guarded. The high probability of a clinically significant, sudden or life threatening deterioration of the [hemodynamic, respiratory] system(s) required my full and direct attention, intervention and personal management. The aggregate critical care time was [31] minutes. This time is in addition to time spent performing reported procedures but includes the following: [x] Data Review and interpretation [x] Patient assessment and monitoring of vital signs [x] Documentation [x] Medication orders and management History Interval history: Patient is weaned off pressors of Levophed. Hospitalist Physical - Constitutional Vitals: Temp Pulse Resp BP Pulse Ox 97.5 F L 107 H 18 97/55 98 09/23/17 11:35 09/23/17 12:16 09/23/17 10:50 09/23/17 12:16 09/23/17 12:16 General appearance: Present: no acute distress - EENT Eyes: Present: PERRL, EOM intact ENT: hearing intact, clear oral mucosa, dentition normal - Neck Neck: Present: supple, normal ROM - Respiratory Respiratory effort: normal Respiratory: bilateral: diminished, rhonchi - Cardiovascular Rhythm: regular Heart Sounds: Present: S1 & S2. Absent: gallop, rub - Extremities Extremities: no ischemia, No edema, Full ROM - Abdominal General gastrointestinal: soft, non-tender, non-distended, normal bowel sounds - Integumentary Integumentary: Present: clear, warm, dry - Neurologic Neurologic: CNII-XII intact, moves all extremities Results - Labs CBC & Chem 7: 09/23/17 05:02 09/23/17 05:02 Labs: Laboratory Last Values WBC 37.5 K/mm3 (4.5-11.0) H 09/23/17 05:02 RBC 2.54 M/mm3 (3.65-5.03) L 09/23/17 05:02 Hgb 7.3 gm/dl (10.1-14.3) L 09/23/17 05:02 Hct 22.9 % (30.3-42.9) L 09/23/17 05:02 MCV 90 fl (79-97) 09/23/17 05:02 MCH 29 pg (28-32) 09/23/17 05:02 MCHC 32 % (30-34) 09/23/17 05:02 RDW 19.4 % (13.2-15.2) H 09/23/17 05:02 Plt Count 471 K/mm3 (140-440) H 09/23/17 05:02 Lymph % (Auto) [employer] 08/19/17 07:37 [place] % (Auto) [employer] 09/13/17 Unknown Eos % (Auto) [employer] 08/19/17 07:37 Baso % (Auto) [employer] 08/19/17 07:37 Lymph # [employer] 08/19/17 07:37 [place] # [employer] 08/19/17 07:37 Eos # [employer] 08/19/17 07:37 Baso # [employer] 08/19/17 07:37 Add Manual Diff Complete 09/23/17 05:02 Total Counted 100 09/23/17 05:02 Seg Neutrophils % [employer] 09/08/17 04:05 Seg Neuts % (Manual) 40.0 % (40.0-70.0) 09/23/17 05:02 Band Neutrophils % 30.0 % 09/23/17 05:02 Lymphocytes % (Manual) 8.0 % (13.4-35.0) L 09/23/17 05:02 Reactive Lymphs % (Man) 0 % 09/23/17 05:02 Monocytes % (Manual) 5.0 % (0.0-7.3) 09/23/17 05:02 Eosinophils % (Manual) 0 % (0.0-4.3) 09/23/17 05:02 Basophils % (Manual) 0 % (0.0-1.8) 09/23/17 05:02 Metamyelocytes % 4.0 % 09/23/17 05:02 Myelocytes % 13.0 % 09/23/17 05:02 Promyelocytes % 0 % 09/23/17 05:02 Blast Cells % 0 % 09/23/17 05:02 Nucleated RBC % 1.0 % (0.0-0.9) H 09/23/17 05:02 Seg Neutrophils # [employer] 08/19/17 07:37 Seg Neutrophils # Man 15.0 K/mm3 (1.8-7.7) H 09/23/17 05:02 Band Neutrophils # 11.3 K/mm3 09/23/17 05:02 Lymphocytes # (Manual) 3.0 K/mm3 (1.2-5.4) 09/23/17 05:02 Abs React Lymphs (Man) 0.0 K/mm3 09/23/17 05:02 Monocytes # (Manual) 1.9 K/mm3 (0.0-0.8) H 09/23/17 05:02 Eosinophils # (Manual) 0.0 K/mm3 (0.0-0.4) 09/23/17 05:02 Basophils # (Manual) 0.0 K/mm3 (0.0-0.1) 09/23/17 05:02 Metamyelocytes # 1.5 K/mm3 09/23/17 05:02 Myelocytes # 4.9 K/mm3 09/23/17 05:02 Promyelocytes # 0.0 K/mm3 09/23/17 05:02 Blast Cells # 0.0 K/mm3 09/23/17 05:02 Pathologist Review Not Reportable 08/30/17 05:20 WBC Morphology Not Reportable 09/23/17 05:02 Hypersegmented Neuts Not Reportable 09/23/17 05:02 Hyposegmented Neuts Not Reportable 09/23/17 05:02 Hypogranular Neuts Not Reportable 09/23/17 05:02 Smudge Cells Not Reportable 09/23/17 05:02 Toxic Granulation Not Reportable 09/23/17 05:02 Toxic Vacuolation Not Reportable 09/23/17 05:02 Dohle Bodies Not Reportable 09/23/17 05:02 Pelger-Huet Anomaly Not Reportable 09/23/17 05:02 Ariel Rods Not Reportable 09/23/17 05:02 Platelet Estimate Consistent w auto 09/23/17 05:02 Clumped Platelets Few 09/23/17 05:02 Plt Clumps, EDTA Not Reportable 09/23/17 05:02 Large Platelets Not Reportable 09/23/17 05:02 Giant Platelets Not Reportable 09/23/17 05:02 Platelet Satelliting Not Reportable 09/23/17 05:02 Plt Morphology Comment Not Reportable 09/23/17 05:02 RBC Morphology Not Reportable 09/23/17 05:02 Dimorphic RBCs Not Reportable 09/23/17 05:02 Polychromasia Not Reportable 09/23/17 05:02 Hypochromasia Not Reportable 09/23/17 05:02 Poikilocytosis Not Reportable 09/23/17 05:02 Anisocytosis Not Reportable 09/23/17 05:02 Microcytosis Not Reportable 09/23/17 05:02 Macrocytosis Not Reportable 09/23/17 05:02 Spherocytes Not Reportable 09/23/17 05:02 Pappenheimer Bodies Not Reportable 09/23/17 05:02 Sickle Cells Not Reportable 09/23/17 05:02 Target Cells Not Reportable 09/23/17 05:02 Tear Drop Cells Not Reportable 09/23/17 05:02 Ovalocytes Not Reportable 09/23/17 05:02 Stomatocytes Rare 09/12/17 05:25 Helmet Cells Not Reportable 09/23/17 05:02 [place] Bodies Not Reportable 09/23/17 05:02 [place] Rings Not Reportable 09/23/17 05:02 Yusuf Cells Not Reportable 09/23/17 05:02 Bite Cells Not Reportable 09/23/17 05:02 Crenated Cell Not Reportable 09/23/17 05:02 Elliptocytes Not Reportable 09/23/17 05:02 Acanthocytes (Spur) Not Reportable 09/23/17 05:02 Rouleaux Not Reportable 09/23/17 05:02 Hemoglobin C Crystals Not Reportable 09/23/17 05:02 Schistocytes Not Reportable 09/23/17 05:02 Malaria parasites Not Reportable 09/23/17 05:02 Jovanni Bodies Not Reportable 09/23/17 05:02 Hem Pathologist Commnt No 09/23/17 05:02 PT 14.9 Sec. (12.2-14.9) 09/21/17 07:00 INR 1.11 (0.87-1.13) 09/21/17 07:00 APTT 28.7 Sec. (24.2-36.6) 08/31/17 18:15 POC ABG pH 7.347 (7.35-7.45) L 09/13/17 11:36 ABG pH 7.323 pH Units (7.350-7.450) L 09/09/17 Unknown POC ABG pCO2 34.3 (35-45) L 09/13/17 11:36 ABG pCO2 41.1 mm Hg 09/09/17 Unknown POC ABG pO2 134 (80-105) H 09/13/17 11:36 ABG pO2 94.1 mm Hg (80.0-90.0) H 09/09/17 Unknown POC ABG HCO3 18.8 09/13/17 11:36 ABG HCO3 20.9 mmol/L (20.0-26.0) 09/09/17 Unknown POC ABG Total CO2 20 09/13/17 11:36 POC ABG O2 Sat 99 09/13/17 11:36 ABG O2 Saturation 97.2 % (95.0-99.0) 09/09/17 Unknown ABG O2 Content 10.9 (0.0-44) 09/09/17 Unknown POC ABG Base Excess -7 09/13/17 11:36 ABG Base Excess -4.8 mmol/L (-2.0-3.0) L 09/09/17 Unknown ABG Hemoglobin 8.0 gm/dl (12.0-16.0) L 09/09/17 Unknown ABG Carboxyhemoglobin 2.0 % (0.0-5.0) 09/09/17 Unknown ABG Methemoglobin 0.3 % (0.0-1.5) 09/09/17 Unknown VBG pH 7.462 (7.320-7.420) H 08/08/17 14:52 Oxyhemoglobin 94.9 % (95.0-99.0) L 09/09/17 Unknown FiO2 30 % 09/13/17 11:36 Sodium 136 mmol/L (137-145) L 09/23/17 05:02 Potassium 3.0 mmol/L (3.6-5.0) L 09/23/17 05:02 Chloride 93.8 mmol/L (98-107) L 09/23/17 05:02 Carbon Dioxide 22 mmol/L (22-30) 09/23/17 05:02 Anion Gap 23 mmol/L 09/23/17 05:02 BUN 99 mg/dL (7-17) H 09/23/17 05:02 Creatinine 2.7 mg/dL (0.7-1.2) H 09/23/17 05:02 Estimated GFR 22 ml/min 09/23/17 05:02 BUN/Creatinine Ratio 37 % 09/23/17 05:02 Glucose 92 mg/dL (65-100) 09/23/17 05:02 POC Glucose 118 (70-105) H 09/23/17 05:39 Lactic Acid 1.60 mmol/L (0.7-2.0) 08/17/17 11:20 Calcium 8.2 mg/dL (8.4-10.2) L 09/23/17 05:02 Phosphorus 2.40 mg/dL (2.5-4.5) L 09/23/17 05:02 Magnesium 1.90 mg/dL (1.7-2.3) 09/23/17 05:02 Iron 22 ug/dL (37-170) L 09/12/17 05:25 TIBC 81 mcg/dL (250-450) L 09/12/17 05:25 Ferritin > 2000.0 ng/mL (13.0-400.0) H 09/12/17 05:25 Total Bilirubin 0.70 mg/dL (0.1-1.2) 09/22/17 03:37 Direct Bilirubin 0.2 mg/dL (0-0.2) 08/08/17 14:11 Indirect Bilirubin 0.3 mg/dL 08/08/17 14:11 AST 33 units/L (5-40) 09/22/17 03:37 ALT 16 units/L (7-56) 09/22/17 03:37 Alkaline Phosphatase 311 units/L (35-129) H 09/22/17 03:37 Ammonia 25.0 umol/L (25-60) 08/08/17 14:52 Total Creatine Kinase 20 units/L (30-135) L 09/16/17 05:30 Troponin T 0.132 ng/mL (0.00-0.029) H* 08/09/17 13:25 C-Reactive Protein 2.80 mg/dL (0.00-1.30) H 09/06/17 05:30 NT-Pro-B Natriuret Pep 6156 pg/mL (0-900) H 08/08/17 14:11 Total Protein 4.4 g/dL (6.3-8.2) L 09/22/17 03:37 Albumin 2.0 g/dL (3.9-5) L 09/22/17 03:37 Albumin/Globulin Ratio 0.8 % 09/22/17 03:37 Triglycerides 180 mg/dL (2-149) H 09/03/17 04:00 Cholesterol 91 mg/dL (50-199) 08/08/17 21:23 LDL Cholesterol Direct 53 mg/dL (50-130) 08/08/17 21:23 HDL Cholesterol 26 mg/dL (40-59) L 08/08/17 21:23 Cholesterol/HDL Ratio 3.50 % 08/08/17 21:23 Amylase 45 units/L (27-131) 08/16/17 09:50 Lipase 34 units/L (13-60) 08/16/17 09:50 TSH 6.580 mlU/mL (0.270-4.200) H 08/08/17 14:22 Free T4 1.46 ng/dL (0.76-1.46) 08/08/17 14:22 Total Cortisol 28.3 mcg/dL () 09/13/17 12:50 Urine Color Yellow (Yellow) 08/08/17 20:15 Urine Turbidity Turbid (Clear) 08/08/17 20:15 Urine pH 8.0 (5.0-7.0) H 08/08/17 20:15 Ur Specific [place] 1.015 (1.003-1.030) 08/08/17 20:15 Urine Protein 100 mg/dl mg/dL (Negative) 08/08/17 20:15 Urine Glucose (UA) Neg mg/dL (Negative) 08/08/17 20:15 Urine Ketones Neg mg/dL (Negative) 08/08/17 20:15 Urine Blood Mod (Negative) 08/08/17 20:15 Urine Nitrite Neg (Negative) 08/08/17 20:15 Urine Bilirubin Neg (Negative) 08/08/17 20:15 Urine Urobilinogen < 2.0 mg/dL (<2.0) 08/08/17 20:15 Ur Leukocyte Esterase Lg (Negative) 08/08/17 20:15 Urine WBC (Auto) 24.0 /HPF (0.0-6.0) H 08/08/17 20:15 Urine RBC (Auto) 3.0 /HPF (0.0-6.0) 08/08/17 20:15 U Epithel Cells (Auto) 3.0 /HPF (0-13.0) 08/08/17 20:15 Urine Bacteria (Auto) 4+ /HPF (Negative) 08/08/17 20:15 Urine Mucus 3+ /HPF 08/08/17 20:15 Fluid Type Peritoneal 08/08/17 18:18 Fluid Color Straw 08/08/17 18:18 Fluid Appearance Clear 08/08/17 18:18 Fluid pH 7.74 08/08/17 18:18 Fluid WBC 4 /mm3 08/08/17 18:18 Fluid RBC 1 /mm3 08/08/17 18:18 Fluid Seg Neutrophils 12 % 08/08/17 18:18 Fluid Lymphocytes 0 % 08/08/17 18:18 Fluid Reactive Lymphs 0 % 08/08/17 18:18 Fluid Monocytes 1 % 08/08/17 18:18 Fluid Eosinophils 0 % 08/08/17 18:18 Fluid Basophils 0 % 08/08/17 18:18 Fluid Glucose 315 mg/dL (40-70) H 08/08/17 18:18 Random Vancomycin 19.5 ug/mL (0-40.0) 08/22/17 03:40 Hep Bs Antigen Non-reactive (Negative) 08/22/17 03:40 Hepatitis C Antibody Non-reactive (NonReactive) 08/22/17 03:40 Miscellaneous Test Flexitest 1 H 09/06/17 09:57 Blood Type O POSITIVE 09/21/17 Unknown Antibody Screen Negative 09/21/17 11:50 VAN Antibody Screen Negative 09/07/17 17:07 Crossmatch See Detail 09/21/17 11:50
[2017-09-23] MEDS: DILAUDID IV PRN ×2 (12:51→18:02)
[2017-09-23] MEDS: HEPARIN IV PRN (14:19)
[2017-09-23] MEDS: HEPARIN 10,000 UNITS/10 ML IV PRN (14:20)
--- NOTE | 2017-09-23 14:43 | Progress Note ---
Assessment and Plan Imp: 1. Acute bacterial peritonitis/abscess s/p PD cath removal and multiple exlaps 2. s/p SBO 3. Acute respiratory failure, hypoxia 4. Morbid obesity, excess cals. 5. ESRD 6. Sepsis -> now SIRS 7. s/p LGIB Rec: 1. Remain off steroids 2. Monitor volume status with TPN; remove volume as able with HD 3. Cont. ventilator -> PSV trials after HD today 4. Monitor H/H and for recurrent bleeding; consider more PRBCs for BP support 5. Levophed if necessary to keep MAP > 65 6. Not a candidate for chemical DVT PPx at this point, yet high risk for DVT; check LE dopplers and, if negative, would place SCD to LLE 7. Off ABX and steroids, yet with rising WBC again; would have ID see her again 8. Prognosis is poor; no family present CCT 31 minutes Subjective Date of service: 09/23/17 Principal diagnosis: respiratory failure, sepsis, shock rectal bleeding Interval history: Awake, alert. No complaints. On ventilator. On HD, back on Levophed at 14mcg. Active Medications Albuterol (Proventil) 2.5 mg IH Q4HRT PRN PRN Reason: Shortness Of Breath Last Admin: 08/24/17 21:49 Dose: 2.5 mg Dextrose (D50w (25gm) Vial) 50 gm IV PRN PRN PRN Reason: Hypoglycemia Last Admin: 09/15/17 23:57 Dose: 50 gm Heparin Sodium (Porcine) (Heparin 10,000 Units/10 Ml) 2,000 unit IV ISIAH PRN PRN Reason: hemodialysis Last Admin: 09/23/17 14:20 Dose: 2,000 unit Heparin Sodium (Porcine) (Heparin) 5,000 unit IV ISIAH PRN PRN Reason: hemodialysis Last Admin: 09/23/17 14:19 Dose: 5,000 unit Hydromorphone HCl (Dilaudid) 1 mg IV Q4H PRN PRN Reason: Pain , Severe (7-10) Last Admin: 09/23/17 12:51 Dose: 1 mg Hydrophilic Ointment (Vaseline Lip Therapy) 1 applic TP DIRECT PRN PRN Reason: DRY LIPS Last Admin: 09/14/17 11:55 Dose: 1 applic Amino Acids/Electrolytes/Dextrose (Tpn Adult) 1,800 mls @ 75 mls/hr IV DAILY@ 1999 [facility] PRN Reason: Protocol Stop: 09/23/17 19:59 Last Admin: 09/22/17 20:41 Dose: 75 mls/hr Sodium Chloride (Nacl 0.9%) 100 mls @ 999 mls/hr IV ISIAH PRN PRN Reason: Hypotension Fat Emulsion Intravenous (Intralipid 20%) 250 mls @ 21 mls/hr IV Q24H [facility] Amino Acids/Electrolytes/Dextrose (Tpn Adult) 1,800 mls @ 75 mls/hr IV DAILY@ 1999 [facility] PRN Reason: Protocol Stop: 09/24/17 19:59 Insulin Aspart (Novolog) 0 units SUB-Q Q6HR [facility] PRN Reason: Protocol Last Admin: 09/23/17 12:07 Dose: Not Given Insulin Detemir (Levemir) 45 units SUB-Q DAILY [facility] Last Admin: 09/23/17 09:41 Dose: 45 units Lorazepam (Ativan) 2 mg IV Q6H PRN PRN Reason: Agitation Last Admin: 09/17/17 10:31 Dose: 2 mg Pantoprazole Sodium (Protonix) 40 mg IV QDAY [facility] Last Admin: 09/23/17 09:41 Dose: 40 mg Objective Vital Signs - 12hr 09/23/17 09/23/17 09/23/17 02:46 03:00 03:16 Temperature Pulse Rate 103 H 100 H 103 H Pulse Rate [ Apical] Respiratory 22 22 22 Rate Blood Pressure 117/57 118/54 118/54 O2 Sat by Pulse Oximetry 09/23/17 09/23/17 09/23/17 03:30 03:46 03:56 Temperature 99.6 F Pulse Rate 102 H 103 H Pulse Rate [ Apical] Respiratory 23 21 Rate Blood Pressure 125/52 125/52 O2 Sat by Pulse 96 Oximetry 09/23/17 09/23/17 09/23/17 04:00 04:16 04:23 Temperature Pulse Rate 102 H 98 H 103 H Pulse Rate [ 101 H Apical] Respiratory 21 20 Rate Blood Pressure 114/60 114/60 125/52 O2 Sat by Pulse 99 94 Oximetry 09/23/17 09/23/17 09/23/17 04:30 04:46 05:00 Temperature Pulse Rate 103 H 104 H 113 H Pulse Rate [ Apical] Respiratory 15 21 18 Rate Blood Pressure 127/57 127/57 127/57 O2 Sat by Pulse 100 91 73 L Oximetry 09/23/17 09/23/17 09/23/17 05:15 05:31 05:45 Temperature Pulse Rate 108 H 106 H 109 H Pulse Rate [ Apical] Respiratory 16 24 15 Rate Blood Pressure 119/61 119/61 82/42 O2 Sat by Pulse 93 83 L Oximetry 09/23/17 09/23/17 09/23/17 06:00 06:15 06:30 Temperature Pulse Rate 103 H 100 H 104 H Pulse Rate [ Apical] Respiratory 26 H 17 22 Rate Blood Pressure 108/49 108/49 117/49 O2 Sat by Pulse 100 100 100 Oximetry 09/23/17 09/23/17 09/23/17 06:45 07:00 07:15 Temperature Pulse Rate 105 H 101 H 102 H Pulse Rate [ Apical] Respiratory 22 23 24 Rate Blood Pressure 117/49 122/54 122/54 O2 Sat by Pulse 100 100 100 Oximetry 09/23/17 09/23/17 09/23/17 07:30 07:45 08:00 Temperature 97.4 F L Pulse Rate 102 H 94 H 102 H Pulse Rate [ Apical] Respiratory 22 21 23 Rate Blood Pressure 124/50 124/50 128/52 O2 Sat by Pulse 100 100 100 Oximetry 09/23/17 09/23/17 09/23/17 08:05 08:15 08:30 Temperature Pulse Rate 103 H 107 H 102 H Pulse Rate [ Apical] Respiratory 22 21 Rate Blood Pressure 128/52 128/52 127/59 O2 Sat by Pulse 100 97 Oximetry 09/23/17 09/23/17 09/23/17 08:45 09:00 09:15 Temperature Pulse Rate 102 H 102 H 100 H Pulse Rate [ Apical] Respiratory 22 22 21 Rate Blood Pressure 127/59 125/52 125/52 O2 Sat by Pulse Oximetry 09/23/17 09/23/17 09/23/17 09:30 09:45 10:00 Temperature Pulse Rate 106 H 112 H 102 H Pulse Rate [ Apical] Respiratory 22 21 21 Rate Blood Pressure 134/53 134/53 127/49 O2 Sat by Pulse 85 93 Oximetry 09/23/17 09/23/17 09/23/17 10:15 10:30 10:45 Temperature Pulse Rate 103 H 103 H 101 H Pulse Rate [ Apical] Respiratory 22 21 19 Rate Blood Pressure 127/49 119/55 119/55 O2 Sat by Pulse 75 L Oximetry 09/23/17 09/23/17 09/23/17 10:50 11:00 11:05 Temperature 97.4 F L Pulse Rate 95 H 102 H 110 H Pulse Rate [ Apical] Respiratory 18 24 Rate Blood Pressure 112/55 107/58 107/58 O2 Sat by Pulse Oximetry 09/23/17 09/23/17 09/23/17 11:15 11:19 11:30 Temperature Pulse Rate 115 H 114 H 111 H Pulse Rate [ Apical] Respiratory 24 21 Rate Blood Pressure 101/52 101/52 91/52 O2 Sat by Pulse Oximetry 09/23/17 09/23/17 09/23/17 11:34 11:35 11:45 Temperature 97.5 F L Pulse Rate 120 H 122 H Pulse Rate [ Apical] Respiratory 15 Rate Blood Pressure 91/52 91/52 O2 Sat by Pulse Oximetry 09/23/17 09/23/17 09/23/17 11:55 12:00 12:15 Temperature Pulse Rate 112 H 111 H 111 H Pulse Rate [ Apical] Respiratory 24 26 H Rate Blood Pressure 73/43 82/52 97/55 O2 Sat by Pulse 100 Oximetry 09/23/17 09/23/17 09/23/17 12:16 12:30 12:45 Temperature Pulse Rate 107 H 107 H 112 H Pulse Rate [ Apical] Respiratory 33 H 36 H Rate Blood Pressure 97/55 83/48 73/44 O2 Sat by Pulse 98 96 100 Oximetry 09/23/17 09/23/17 09/23/17 13:00 13:02 13:15 Temperature Pulse Rate 112 H 112 H 117 H Pulse Rate [ Apical] Respiratory 23 25 H Rate Blood Pressure 97/46 97/46 99/55 O2 Sat by Pulse 98 96 Oximetry 09/23/17 09/23/17 09/23/17 13:30 13:45 14:00 Temperature Pulse Rate 119 H 117 H 115 H Pulse Rate [ Apical] Respiratory 30 H 29 H Rate Blood Pressure 93/63 93/63 81/28 O2 Sat by Pulse 40 L 66 L Oximetry 09/23/17 09/23/17 14:01 14:15 Temperature Pulse Rate 123 H 112 H Pulse Rate [ Apical] Respiratory 31 H 22 Rate Blood Pressure 82/40 73/41 O2 Sat by Pulse 90 Oximetry Constitutional: other (critically ill on vent, obese) Eyes: non-icteric Neck: supple, other (trach in position, no bleeding) Effort: mildly labored Ascultation: Bilateral: wheezes (faint expiratory wheezes), other (coarse BS bilaterally) Cardiovascular: other (tachy, RR; no mrg) Gastrointestinal: absent bowel sounds, non-tender, other (abdominal incision with dressing , obese. Drain in place, no bleeding; ostomy with brown stool) Integumentary: normal Extremities: no cyanosis, pink and warm, edema Neurologic: non-focal exam, pupils equal and round Psychiatric: mood appropriate, affect normal CBC and BMP: 09/23/17 05:02 09/23/17 05:02 ABG, PT/INR, D-dimer: ABG POC ABG pH 7.347 (7.35-7.45) L 09/13/17 11:36 ABG pH 7.323 pH Units (7.350-7.450) L 09/09/17 Unknown POC ABG pCO2 34.3 (35-45) L 09/13/17 11:36 ABG pCO2 41.1 mm Hg 09/09/17 Unknown POC ABG pO2 134 (80-105) H 09/13/17 11:36 ABG pO2 94.1 mm Hg (80.0-90.0) H 09/09/17 Unknown POC ABG HCO3 18.8 09/13/17 11:36 POC ABG Total CO2 20 09/13/17 11:36 POC ABG O2 Sat 99 09/13/17 11:36 ABG O2 Saturation 97.2 % (95.0-99.0) 09/09/17 Unknown PT/INR, D-dimer PT 14.9 Sec. (12.2-14.9) 09/21/17 07:00 INR 1.11 (0.87-1.13) 09/21/17 07:00 Abnormal lab findings: Abnormal Labs 08/08/17 08/08/17 08/09/17 21:23 21:31 11:19 WBC 15.7 H RBC 2.93 L Hgb 8.7 L Hct 26.8 L MCV MCH RDW 19.2 H Plt Count Lymph % (Auto) [place] % (Auto) [place] # Seg Neutrophils % Seg Neuts % (Manual) Lymphocytes % (Manual) Monocytes % (Manual) Nucleated RBC % Seg Neutrophils # Seg Neutrophils # Man Lymphocytes # (Manual) Monocytes # (Manual) Eosinophils # (Manual) Basophils # (Manual) PT INR POC ABG pH 7.490 H ABG pH POC ABG pCO2 POC ABG pO2 122 H ABG pO2 ABG O2 Saturation ABG Base Excess ABG Hemoglobin Oxyhemoglobin Sodium Potassium Chloride Carbon Dioxide BUN Creatinine Glucose POC Glucose Calcium Phosphorus Magnesium Iron TIBC Ferritin Total Bilirubin AST ALT Alkaline Phosphatase Total Creatine Kinase Troponin T 0.133 H* C-Reactive Protein Total Protein Albumin Triglycerides HDL Cholesterol 26 L Miscellaneous Test Crossmatch 08/09/17 08/10/17 08/10/17 13:25 04:45 04:45 WBC 15.5 H RBC 2.97 L Hgb 8.9 L Hct 27.0 L MCV MCH RDW 19.2 H Plt Count Lymph % (Auto) [place] % (Auto) [place] # Seg Neutrophils % Seg Neuts % (Manual) 73.0 H Lymphocytes % (Manual) 7.0 L Monocytes % (Manual) 14.0 H Nucleated RBC % Seg Neutrophils # Seg Neutrophils # Man 11.3 H Lymphocytes # (Manual) 1.1 L Monocytes # (Manual) 2.2 H Eosinophils # (Manual) Basophils # (Manual) 0.2 H PT INR POC ABG pH ABG pH POC ABG pCO2 POC ABG pO2 ABG pO2 ABG O2 Saturation ABG Base Excess ABG Hemoglobin Oxyhemoglobin Sodium Potassium 3.3 L Chloride 97.3 L Carbon Dioxide 21 L BUN 23 H Creatinine 6.5 H Glucose POC Glucose Calcium 7.3 L Phosphorus Magnesium Iron TIBC Ferritin Total Bilirubin AST ALT Alkaline Phosphatase 138 H Total Creatine Kinase Troponin T 0.132 H* C-Reactive Protein Total Protein 4.8 L Albumin 1.4 L Triglycerides HDL Cholesterol Miscellaneous Test Crossmatch 08/11/17 08/11/17 08/12/17 04:00 04:00 05:50 WBC 19.3 H RBC 3.10 L Hgb 9.5 L Hct 28.2 L MCV MCH RDW 19.2 H Plt Count 463 H Lymph % (Auto) 7.5 L [place] % (Auto) 14.6 H [place] # 2.8 H Seg Neutrophils % 77.0 H Seg Neuts % (Manual) Lymphocytes % (Manual) Monocytes % (Manual) Nucleated RBC % Seg Neutrophils # 14.8 H Seg Neutrophils # Man Lymphocytes # (Manual) Monocytes # (Manual) Eosinophils # (Manual) Basophils # (Manual) PT INR POC ABG pH ABG pH POC ABG pCO2 POC ABG pO2 ABG pO2 ABG O2 Saturation ABG Base Excess ABG Hemoglobin Oxyhemoglobin Sodium 136 L 136 L Potassium 3.3 L Chloride 96.3 L 96.6 L Carbon Dioxide BUN 26 H 26 H Creatinine 6.4 H 6.2 H Glucose 135 H 133 H POC Glucose Calcium 8.2 L Phosphorus Magnesium 1.30 L Iron TIBC Ferritin Total Bilirubin AST ALT Alkaline Phosphatase 139 H Total Creatine Kinase Troponin T C-Reactive Protein Total Protein 5.5 L Albumin 1.7 L Triglycerides HDL Cholesterol Miscellaneous Test Crossmatch 08/12/17 08/12/17 08/12/17 05:50 05:50 05:50 WBC 20.1 H RBC 3.06 L Hgb 9.3 L Hct 27.9 L MCV MCH RDW 18.4 H Plt Count 471 H Lymph % (Auto) [place] % (Auto) [place] # Seg Neutrophils % Seg Neuts % (Manual) 85.0 H Lymphocytes % (Manual) 8.0 L Monocytes % (Manual) Nucleated RBC % Seg Neutrophils # Seg Neutrophils # Man 17.1 H Lymphocytes # (Manual) Monocytes # (Manual) 1.0 H Eosinophils # (Manual) Basophils # (Manual) PT 15.2 H INR 1.14 H POC ABG pH ABG pH POC ABG pCO2 POC ABG pO2 ABG pO2 ABG O2 Saturation ABG Base Excess ABG Hemoglobin Oxyhemoglobin Sodium Potassium Chloride Carbon Dioxide BUN Creatinine Glucose POC Glucose Calcium Phosphorus Magnesium Iron TIBC Ferritin Total Bilirubin AST ALT Alkaline Phosphatase Total Creatine Kinase Troponin T C-Reactive Protein 28.90 H Total Protein Albumin Triglycerides HDL Cholesterol Miscellaneous Test Crossmatch 08/12/17 08/13/17 08/13/17 16:23 06:14 06:14 WBC 21.8 H RBC 3.11 L Hgb 9.4 L Hct 28.2 L MCV MCH RDW 18.2 H Plt Count 492 H Lymph % (Auto) [place] % (Auto) [place] # Seg Neutrophils % Seg Neuts % (Manual) 73.0 H Lymphocytes % (Manual) 2.0 L Monocytes % (Manual) 15 H Nucleated RBC % Seg Neutrophils # Seg Neutrophils # Man 15.9 H Lymphocytes # (Manual) 0.4 L Monocytes # (Manual) 2.4 H Eosinophils # (Manual) Basophils # (Manual) PT INR POC ABG pH ABG pH POC ABG pCO2 POC ABG pO2 ABG pO2 ABG O2 Saturation ABG Base Excess ABG Hemoglobin Oxyhemoglobin Sodium Potassium Chloride 96.2 L Carbon Dioxide BUN 28 H Creatinine 5.6 H Glucose 114 H POC Glucose Calcium Phosphorus Magnesium Iron TIBC Ferritin Total Bilirubin AST ALT Alkaline Phosphatase Total Creatine Kinase Troponin T C-Reactive Protein 26.10 H Total Protein Albumin Triglycerides HDL Cholesterol Miscellaneous Test Crossmatch 08/13/17 08/14/17 08/14/17 16:39 04:00 04:00 WBC 22.1 H RBC 3.25 L Hgb 9.9 L Hct 29.5 L MCV MCH RDW 17.9 H Plt Count 525 H Lymph % (Auto) [place] % (Auto) [place] # Seg Neutrophils % Seg Neuts % (Manual) 74.0 H Lymphocytes % (Manual) 8.0 L Monocytes % (Manual) 12.0 H Nucleated RBC % Seg Neutrophils # Seg Neutrophils # Man 16.4 H Lymphocytes # (Manual) Monocytes # (Manual) 2.7 H Eosinophils # (Manual) Basophils # (Manual) PT INR POC ABG pH ABG pH POC ABG pCO2 POC ABG pO2 ABG pO2 ABG O2 Saturation ABG Base Excess ABG Hemoglobin Oxyhemoglobin Sodium 134 L Potassium 3.3 L Chloride 93.3 L Carbon Dioxide BUN 27 H Creatinine 6.0 H Glucose 152 H POC Glucose 151 H Calcium Phosphorus Magnesium Iron TIBC Ferritin Total Bilirubin AST ALT Alkaline Phosphatase Total Creatine Kinase Troponin T C-Reactive Protein Total Protein Albumin Triglycerides HDL Cholesterol Miscellaneous Test Crossmatch 08/15/17 08/16/17 08/16/17 09:10 09:50 09:50 WBC 31.1 H RBC 3.21 L Hgb 9.6 L Hct 29.3 L MCV MCH RDW 18.1 H Plt Count 642 H Lymph % (Auto) [place] % (Auto) [place] # Seg Neutrophils % Seg Neuts % (Manual) 74.0 H Lymphocytes % (Manual) 4.0 L Monocytes % (Manual) 9.0 H Nucleated RBC % Seg Neutrophils # Seg Neutrophils # Man 23.0 H Lymphocytes # (Manual) Monocytes # (Manual) 2.8 H Eosinophils # (Manual) Basophils # (Manual) PT INR POC ABG pH ABG pH POC ABG pCO2 POC ABG pO2 ABG pO2 ABG O2 Saturation ABG Base Excess ABG Hemoglobin Oxyhemoglobin Sodium 136 L 136 L Potassium 3.5 L Chloride 97.6 L 94.9 L Carbon Dioxide BUN 27 H 28 H Creatinine 5.6 H 5.5 H Glucose 117 H 103 H POC Glucose Calcium Phosphorus Magnesium Iron TIBC Ferritin Total Bilirubin AST ALT Alkaline Phosphatase 137 H Total Creatine Kinase Troponin T C-Reactive Protein Total Protein 5.4 L Albumin 1.5 L Triglycerides HDL Cholesterol Miscellaneous Test Crossmatch 08/16/17 08/17/17 08/17/17 09:50 05:00 06:26 WBC RBC Hgb Hct MCV MCH RDW Plt Count Lymph % (Auto) [place] % (Auto) [place] # Seg Neutrophils % Seg Neuts % (Manual) Lymphocytes % (Manual) Monocytes % (Manual) Nucleated RBC % Seg Neutrophils # Seg Neutrophils # Man Lymphocytes # (Manual) Monocytes # (Manual) Eosinophils # (Manual) Basophils # (Manual) PT INR POC ABG pH ABG pH POC ABG pCO2 POC ABG pO2 ABG pO2 ABG O2 Saturation ABG Base Excess ABG Hemoglobin Oxyhemoglobin Sodium 134 L Potassium 3.0 L Chloride 97.8 L Carbon Dioxide BUN 30 H Creatinine 5.3 H Glucose 147 H POC Glucose 165 H Calcium 7.5 L Phosphorus Magnesium Iron TIBC Ferritin Total Bilirubin AST ALT Alkaline Phosphatase Total Creatine Kinase Troponin T C-Reactive Protein 32.30 H Total Protein Albumin Triglycerides HDL Cholesterol Miscellaneous Test Crossmatch 08/17/17 08/17/17 08/17/17 10:56 11:20 11:20 WBC 39.1 H RBC 3.10 L Hgb 9.2 L Hct 28.6 L MCV MCH RDW 18.3 H Plt Count 580 H Lymph % (Auto) [place] % (Auto) [place] # Seg Neutrophils % Seg Neuts % (Manual) 89.5 H Lymphocytes % (Manual) 3.5 L Monocytes % (Manual) Nucleated RBC % Seg Neutrophils # Seg Neutrophils # Man 35.0 H Lymphocytes # (Manual) Monocytes # (Manual) 2.5 H Eosinophils # (Manual) Basophils # (Manual) 0.2 H PT INR POC ABG pH 7.464 H ABG pH POC ABG pCO2 34.1 L POC ABG pO2 75 L ABG pO2 ABG O2 Saturation ABG Base Excess ABG Hemoglobin Oxyhemoglobin Sodium Potassium Chloride Carbon Dioxide BUN Creatinine Glucose POC Glucose Calcium Phosphorus Magnesium Iron TIBC Ferritin Total Bilirubin AST ALT Alkaline Phosphatase Total Creatine Kinase Troponin T C-Reactive Protein Total Protein Albumin Triglycerides HDL Cholesterol Miscellaneous Test Flexitest 1 H Crossmatch 08/17/17 08/17/17 08/17/17 11:20 16:57 20:20 WBC 34.4 H RBC 2.81 L Hgb 8.4 L Hct 26.0 L MCV MCH RDW 17.8 H Plt Count 455 H Lymph % (Auto) [place] % (Auto) [place] # Seg Neutrophils % Seg Neuts % (Manual) Lymphocytes % (Manual) 3.5 L Monocytes % (Manual) Nucleated RBC % 5.0 H Seg Neutrophils # Seg Neutrophils # Man 16.5 H Lymphocytes # (Manual) Monocytes # (Manual) 1.0 H Eosinophils # (Manual) Basophils # (Manual) PT 16.0 H INR 1.29 H POC ABG pH ABG pH POC ABG pCO2 POC ABG pO2 ABG pO2 ABG O2 Saturation ABG Base Excess ABG Hemoglobin Oxyhemoglobin Sodium 135 L Potassium 2.9 L* Chloride Carbon Dioxide 20 L BUN 32 H Creatinine 5.4 H Glucose 129 H POC Glucose Calcium 7.5 L Phosphorus Magnesium 1.50 L Iron TIBC Ferritin Total Bilirubin AST 85 H ALT Alkaline Phosphatase Total Creatine Kinase Troponin T C-Reactive Protein Total Protein 4.0 L D Albumin 1.6 L Triglycerides HDL Cholesterol Miscellaneous Test Crossmatch 08/17/17 08/17/17 08/18/17 20:54 23:47 04:26 WBC RBC Hgb Hct MCV MCH RDW Plt Count Lymph % (Auto) [place] % (Auto) [place] # Seg Neutrophils % Seg Neuts % (Manual) Lymphocytes % (Manual) Monocytes % (Manual) Nucleated RBC % Seg Neutrophils # Seg Neutrophils # Man Lymphocytes # (Manual) Monocytes # (Manual) Eosinophils # (Manual) Basophils # (Manual) PT INR POC ABG pH 7.557 H ABG pH POC ABG pCO2 23.1 L 29.0 L POC ABG pO2 187 H 148 H ABG pO2 ABG O2 Saturation ABG Base Excess ABG Hemoglobin Oxyhemoglobin Sodium Potassium Chloride Carbon Dioxide BUN Creatinine Glucose POC Glucose 188 H Calcium Phosphorus Magnesium Iron TIBC Ferritin Total Bilirubin AST ALT Alkaline Phosphatase Total Creatine Kinase Troponin T C-Reactive Protein Total Protein Albumin Triglycerides HDL Cholesterol Miscellaneous Test Crossmatch 08/18/17 08/18/17 08/18/17 05:51 11:44 17:07 WBC RBC Hgb Hct MCV MCH RDW Plt Count Lymph % (Auto) [place] % (Auto) [place] # Seg Neutrophils % Seg Neuts % (Manual) Lymphocytes % (Manual) Monocytes % (Manual) Nucleated RBC % Seg Neutrophils # Seg Neutrophils # Man Lymphocytes # (Manual) Monocytes # (Manual) Eosinophils # (Manual) Basophils # (Manual) PT INR POC ABG pH ABG pH POC ABG pCO2 POC ABG pO2 ABG pO2 ABG O2 Saturation ABG Base Excess ABG Hemoglobin Oxyhemoglobin Sodium Potassium Chloride Carbon Dioxide BUN Creatinine Glucose POC Glucose 202 H 195 H 182 H Calcium Phosphorus Magnesium Iron TIBC Ferritin Total Bilirubin AST ALT Alkaline Phosphatase Total Creatine Kinase Troponin T C-Reactive Protein Total Protein Albumin Triglycerides HDL Cholesterol Miscellaneous Test Crossmatch 08/18/17 08/18/17 08/18/17 23:45 Unknown Unknown WBC 39.0 H RBC 2.84 L Hgb 8.4 L Hct 26.5 L MCV MCH RDW 18.0 H Plt Count 476 H Lymph % (Auto) [place] % (Auto) [place] # Seg Neutrophils % Seg Neuts % (Manual) Lymphocytes % (Manual) 7.0 L Monocytes % (Manual) 10.0 H Nucleated RBC % 3.0 H Seg Neutrophils # Seg Neutrophils # Man 15.6 H Lymphocytes # (Manual) Monocytes # (Manual) 3.9 H Eosinophils # (Manual) Basophils # (Manual) PT INR POC ABG pH ABG pH POC ABG pCO2 POC ABG pO2 ABG pO2 ABG O2 Saturation ABG Base Excess ABG Hemoglobin Oxyhemoglobin Sodium Potassium Chloride Carbon Dioxide 19 L BUN 34 H Creatinine 5.6 H Glucose 201 H POC Glucose 163 H Calcium 7.8 L Phosphorus 1.90 L D Magnesium 1.60 L Iron TIBC Ferritin Total Bilirubin AST ALT Alkaline Phosphatase Total Creatine Kinase Troponin T C-Reactive Protein Total Protein Albumin Triglycerides HDL Cholesterol Miscellaneous Test Crossmatch 08/19/17 08/19/17 08/19/17 04:18 05:00 05:00 WBC 40.0 H RBC 2.46 L Hgb 7.3 L Hct 22.6 L MCV MCH RDW 18.1 H Plt Count Lymph % (Auto) [place] % (Auto) [place] # Seg Neutrophils % Seg Neuts % (Manual) Lymphocytes % (Manual) 8.0 L Monocytes % (Manual) Nucleated RBC % 2.0 H Seg Neutrophils # Seg Neutrophils # Man 16.4 H Lymphocytes # (Manual) Monocytes # (Manual) 1.2 H Eosinophils # (Manual) 1.2 H Basophils # (Manual) PT INR POC ABG pH 7.463 H ABG pH POC ABG pCO2 29.7 L POC ABG pO2 134 H ABG pO2 ABG O2 Saturation ABG Base Excess ABG Hemoglobin Oxyhemoglobin Sodium Potassium 5.1 H D Chloride Carbon Dioxide 20 L BUN 40 H Creatinine 5.3 H Glucose 128 H POC Glucose Calcium 7.8 L Phosphorus 1.90 L Magnesium Iron TIBC Ferritin Total Bilirubin AST ALT Alkaline Phosphatase Total Creatine Kinase Troponin T C-Reactive Protein Total Protein Albumin Triglycerides HDL Cholesterol Miscellaneous Test Crossmatch 08/19/17 08/19/17 08/19/17 05:19 07:37 09:52 WBC 45.0 H* RBC 2.50 L Hgb 7.5 L Hct 24.5 L MCV 98 H MCH RDW 18.4 H Plt Count Lymph % (Auto) [place] % (Auto) [place] # Seg Neutrophils % Seg Neuts % (Manual) 81.5 H Lymphocytes % (Manual) 4.0 L Monocytes % (Manual) Nucleated RBC % 1.0 H Seg Neutrophils # Seg Neutrophils # Man 36.7 H Lymphocytes # (Manual) Monocytes # (Manual) Eosinophils # (Manual) Basophils # (Manual) PT INR POC ABG pH ABG pH POC ABG pCO2 POC ABG pO2 ABG pO2 ABG O2 Saturation ABG Base Excess ABG Hemoglobin Oxyhemoglobin Sodium Potassium Chloride Carbon Dioxide BUN Creatinine Glucose POC Glucose 142 H Calcium Phosphorus Magnesium Iron TIBC Ferritin Total Bilirubin AST ALT Alkaline Phosphatase Total Creatine Kinase Troponin T C-Reactive Protein 34.20 H Total Protein Albumin Triglycerides HDL Cholesterol Miscellaneous Test Crossmatch 08/19/17 08/19/17 08/20/17 11:16 18:12 00:35 WBC RBC Hgb Hct MCV MCH RDW Plt Count Lymph % (Auto) [place] % (Auto) [place] # Seg Neutrophils % Seg Neuts % (Manual) Lymphocytes % (Manual) Monocytes % (Manual) Nucleated RBC % Seg Neutrophils # Seg Neutrophils # Man Lymphocytes # (Manual) Monocytes # (Manual) Eosinophils # (Manual) Basophils # (Manual) PT INR POC ABG pH ABG pH POC ABG pCO2 POC ABG pO2 ABG pO2 ABG O2 Saturation ABG Base Excess ABG Hemoglobin Oxyhemoglobin Sodium Potassium Chloride Carbon Dioxide BUN Creatinine Glucose POC Glucose 143 H 137 H 164 H Calcium Phosphorus Magnesium Iron TIBC Ferritin Total Bilirubin AST ALT Alkaline Phosphatase Total Creatine Kinase Troponin T C-Reactive Protein Total Protein Albumin Triglycerides HDL Cholesterol Miscellaneous Test Crossmatch 08/20/17 08/20/17 08/20/17 03:20 03:20 04:00 WBC 48.0 H* RBC 2.55 L Hgb 7.6 L Hct 23.4 L MCV MCH RDW 18.4 H Plt Count Lymph % (Auto) [place] % (Auto) [place] # Seg Neutrophils % Seg Neuts % (Manual) 90.0 H Lymphocytes % (Manual) 3.0 L Monocytes % (Manual) Nucleated RBC % Seg Neutrophils # Seg Neutrophils # Man 43.2 H Lymphocytes # (Manual) Monocytes # (Manual) 1.4 H Eosinophils # (Manual) 0.5 H Basophils # (Manual) PT INR POC ABG pH 7.499 H ABG pH POC ABG pCO2 29.1 L POC ABG pO2 ABG pO2 ABG O2 Saturation ABG Base Excess ABG Hemoglobin Oxyhemoglobin Sodium 135 L Potassium Chloride Carbon Dioxide BUN 28 H Creatinine 4.0 H Glucose 140 H POC Glucose Calcium 8.0 L Phosphorus 1.70 L Magnesium 1.60 L Iron TIBC Ferritin Total Bilirubin AST ALT Alkaline Phosphatase Total Creatine Kinase Troponin T C-Reactive Protein Total Protein Albumin Triglycerides HDL Cholesterol Miscellaneous Test Crossmatch 08/20/17 08/20/17 08/20/17 05:02 12:05 13:12 WBC RBC Hgb Hct MCV MCH RDW Plt Count Lymph % (Auto) [place] % (Auto) [place] # Seg Neutrophils % Seg Neuts % (Manual) Lymphocytes % (Manual) Monocytes % (Manual) Nucleated RBC % Seg Neutrophils # Seg Neutrophils # Man Lymphocytes # (Manual) Monocytes # (Manual) Eosinophils # (Manual) Basophils # (Manual) PT INR POC ABG pH 7.537 H ABG pH POC ABG pCO2 27.9 L POC ABG pO2 79 L ABG pO2 ABG O2 Saturation ABG Base Excess ABG Hemoglobin Oxyhemoglobin Sodium Potassium Chloride Carbon Dioxide BUN Creatinine Glucose POC Glucose 158 H 203 H Calcium Phosphorus Magnesium Iron TIBC Ferritin Total Bilirubin AST ALT Alkaline Phosphatase Total Creatine Kinase Troponin T C-Reactive Protein Total Protein Albumin Triglycerides HDL Cholesterol Miscellaneous Test Crossmatch 08/20/17 08/21/17 08/21/17 17:13 00:47 03:14 WBC RBC Hgb Hct MCV MCH RDW Plt Count Lymph % (Auto) [place] % (Auto) [place] # Seg Neutrophils % Seg Neuts % (Manual) Lymphocytes % (Manual) Monocytes % (Manual) Nucleated RBC % Seg Neutrophils # Seg Neutrophils # Man Lymphocytes # (Manual) Monocytes # (Manual) Eosinophils # (Manual) Basophils # (Manual) PT INR POC ABG pH 7.481 H ABG pH POC ABG pCO2 29.6 L POC ABG pO2 ABG pO2 ABG O2 Saturation ABG Base Excess ABG Hemoglobin Oxyhemoglobin Sodium Potassium Chloride Carbon Dioxide BUN Creatinine Glucose POC Glucose 188 H 109 H Calcium Phosphorus Magnesium Iron TIBC Ferritin Total Bilirubin AST ALT Alkaline Phosphatase Total Creatine Kinase Troponin T C-Reactive Protein Total Protein Albumin Triglycerides HDL Cholesterol Miscellaneous Test Crossmatch 08/21/17 08/21/17 08/21/17 05:05 06:50 06:50 WBC 44.7 H* RBC 2.41 L Hgb 7.1 L Hct 22.1 L MCV MCH RDW 18.3 H Plt Count Lymph % (Auto) [place] % (Auto) [place] # Seg Neutrophils % Seg Neuts % (Manual) 89.0 H Lymphocytes % (Manual) 0 L Monocytes % (Manual) Nucleated RBC % 1.0 H Seg Neutrophils # Seg Neutrophils # Man 39.8 H Lymphocytes # (Manual) 0.0 L Monocytes # (Manual) 1.3 H Eosinophils # (Manual) Basophils # (Manual) PT INR POC ABG pH ABG pH POC ABG pCO2 POC ABG pO2 ABG pO2 ABG O2 Saturation ABG Base Excess ABG Hemoglobin Oxyhemoglobin Sodium 135 L Potassium Chloride Carbon Dioxide BUN 39 H Creatinine 4.4 H Glucose 147 H POC Glucose 166 H Calcium 8.1 L Phosphorus Magnesium Iron TIBC Ferritin Total Bilirubin AST ALT < 5 L Alkaline Phosphatase 164 H Total Creatine Kinase Troponin T C-Reactive Protein Total Protein 4.7 L Albumin 1.4 L Triglycerides HDL Cholesterol Miscellaneous Test Crossmatch 08/21/17 08/21/17 08/21/17 08:00 12:21 17:02 WBC RBC Hgb Hct MCV MCH RDW Plt Count Lymph % (Auto) [place] % (Auto) [place] # Seg Neutrophils % Seg Neuts % (Manual) Lymphocytes % (Manual) Monocytes % (Manual) Nucleated RBC % Seg Neutrophils # Seg Neutrophils # Man Lymphocytes # (Manual) Monocytes # (Manual) Eosinophils # (Manual) Basophils # (Manual) PT INR POC ABG pH ABG pH POC ABG pCO2 POC ABG pO2 ABG pO2 ABG O2 Saturation ABG Base Excess ABG Hemoglobin Oxyhemoglobin Sodium Potassium Chloride Carbon Dioxide BUN Creatinine Glucose POC Glucose 147 H 135 H Calcium Phosphorus Magnesium Iron TIBC Ferritin Total Bilirubin AST ALT Alkaline Phosphatase Total Creatine Kinase Troponin T C-Reactive Protein Total Protein Albumin Triglycerides HDL Cholesterol Miscellaneous Test Crossmatch See Detail 08/21/17 08/22/17 08/22/17 23:38 03:40 03:40 WBC 42.5 H* RBC 2.88 L Hgb 8.5 L Hct 26.3 L MCV MCH RDW 17.9 H Plt Count Lymph % (Auto) [place] % (Auto) [place] # Seg Neutrophils % Seg Neuts % (Manual) Lymphocytes % (Manual) 5.0 L Monocytes % (Manual) Nucleated RBC % Seg Neutrophils # Seg Neutrophils # Man 19.6 H Lymphocytes # (Manual) Monocytes # (Manual) 2.6 H Eosinophils # (Manual) Basophils # (Manual) PT INR POC ABG pH ABG pH POC ABG pCO2 POC ABG pO2 ABG pO2 ABG O2 Saturation ABG Base Excess ABG Hemoglobin Oxyhemoglobin Sodium Potassium 3.3 L D Chloride Carbon Dioxide BUN 27 H Creatinine 2.9 H Glucose 144 H POC Glucose 251 H Calcium 8.0 L Phosphorus 2.40 L Magnesium Iron TIBC Ferritin Total Bilirubin AST ALT Alkaline Phosphatase Total Creatine Kinase Troponin T C-Reactive Protein Total Protein Albumin Triglycerides HDL Cholesterol Miscellaneous Test Crossmatch 08/22/17 08/22/17 08/22/17 06:37 08:50 11:25 WBC RBC Hgb Hct MCV MCH RDW Plt Count Lymph % (Auto) [place] % (Auto) [place] # Seg Neutrophils % Seg Neuts % (Manual) Lymphocytes % (Manual) Monocytes % (Manual) Nucleated RBC % Seg Neutrophils # Seg Neutrophils # Man Lymphocytes # (Manual) Monocytes # (Manual) Eosinophils # (Manual) Basophils # (Manual) PT INR POC ABG pH ABG pH POC ABG pCO2 POC ABG pO2 ABG pO2 ABG O2 Saturation ABG Base Excess ABG Hemoglobin Oxyhemoglobin Sodium Potassium Chloride Carbon Dioxide BUN Creatinine Glucose POC Glucose 152 H 175 H Calcium Phosphorus Magnesium Iron TIBC Ferritin Total Bilirubin AST ALT Alkaline Phosphatase Total Creatine Kinase Troponin T C-Reactive Protein Total Protein Albumin Triglycerides HDL Cholesterol Miscellaneous Test Flexitest 1 H Crossmatch 08/22/17 08/22/17 08/22/17 16:25 17:56 23:03 WBC RBC Hgb Hct MCV MCH RDW Plt Count Lymph % (Auto) [place] % (Auto) [place] # Seg Neutrophils % Seg Neuts % (Manual) Lymphocytes % (Manual) Monocytes % (Manual) Nucleated RBC % Seg Neutrophils # Seg Neutrophils # Man Lymphocytes # (Manual) Monocytes # (Manual) Eosinophils # (Manual) Basophils # (Manual) PT INR POC ABG pH ABG pH POC ABG pCO2 POC ABG pO2 ABG pO2 ABG O2 Saturation ABG Base Excess ABG Hemoglobin Oxyhemoglobin Sodium Potassium Chloride Carbon Dioxide BUN Creatinine Glucose POC Glucose 232 H 192 H Calcium Phosphorus Magnesium Iron TIBC Ferritin Total Bilirubin AST ALT Alkaline Phosphatase Total Creatine Kinase Troponin T C-Reactive Protein 30.70 H Total Protein Albumin Triglycerides HDL Cholesterol Miscellaneous Test Crossmatch 08/23/17 08/23/17 08/23/17 05:36 08:50 12:14 WBC RBC Hgb Hct MCV MCH RDW Plt Count Lymph % (Auto) [place] % (Auto) [place] # Seg Neutrophils % Seg Neuts % (Manual) Lymphocytes % (Manual) Monocytes % (Manual) Nucleated RBC % Seg Neutrophils # Seg Neutrophils # Man Lymphocytes # (Manual) Monocytes # (Manual) Eosinophils # (Manual) Basophils # (Manual) PT INR POC ABG pH ABG pH POC ABG pCO2 POC ABG pO2 ABG pO2 ABG O2 Saturation ABG Base Excess ABG Hemoglobin Oxyhemoglobin Sodium Potassium Chloride 107.1 H Carbon Dioxide BUN 49 H Creatinine 3.3 H Glucose 172 H POC Glucose 206 H 238 H Calcium Phosphorus Magnesium 2.40 H Iron TIBC Ferritin Total Bilirubin AST ALT Alkaline Phosphatase Total Creatine Kinase Troponin T C-Reactive Protein Total Protein Albumin Triglycerides HDL Cholesterol Miscellaneous Test Crossmatch 08/23/17 08/23/17 08/24/17 17:21 23:13 04:00 WBC 34.2 H RBC 2.86 L Hgb 8.4 L Hct 25.9 L MCV MCH RDW 17.9 H Plt Count Lymph % (Auto) [place] % (Auto) [place] # Seg Neutrophils % Seg Neuts % (Manual) 85.0 H Lymphocytes % (Manual) 0.5 L Monocytes % (Manual) Nucleated RBC % 1.0 H Seg Neutrophils # Seg Neutrophils # Man 29.1 H Lymphocytes # (Manual) 0.2 L Monocytes # (Manual) 2.4 H Eosinophils # (Manual) Basophils # (Manual) PT INR POC ABG pH ABG pH POC ABG pCO2 POC ABG pO2 ABG pO2 ABG O2 Saturation ABG Base Excess ABG Hemoglobin Oxyhemoglobin Sodium Potassium Chloride Carbon Dioxide BUN Creatinine Glucose POC Glucose 226 H 183 H Calcium Phosphorus Magnesium Iron TIBC Ferritin Total Bilirubin AST ALT Alkaline Phosphatase Total Creatine Kinase Troponin T C-Reactive Protein Total Protein Albumin Triglycerides HDL Cholesterol Miscellaneous Test Crossmatch 08/24/17 08/24/17 08/24/17 05:06 09:30 12:04 WBC RBC Hgb Hct MCV MCH RDW Plt Count Lymph % (Auto) [place] % (Auto) [place] # Seg Neutrophils % Seg Neuts % (Manual) Lymphocytes % (Manual) Monocytes % (Manual) Nucleated RBC % Seg Neutrophils # Seg Neutrophils # Man Lymphocytes # (Manual) Monocytes # (Manual) Eosinophils # (Manual) Basophils # (Manual) PT INR POC ABG pH ABG pH POC ABG pCO2 POC ABG pO2 ABG pO2 ABG O2 Saturation ABG Base Excess ABG Hemoglobin Oxyhemoglobin Sodium Potassium Chloride Carbon Dioxide BUN 46 H Creatinine 2.5 H Glucose 176 H POC Glucose 201 H 181 H Calcium Phosphorus Magnesium Iron TIBC Ferritin Total Bilirubin AST ALT Alkaline Phosphatase Total Creatine Kinase Troponin T C-Reactive Protein Total Protein Albumin Triglycerides HDL Cholesterol Miscellaneous Test Crossmatch 08/24/17 08/24/17 08/25/17 18:04 23:05 05:05 WBC RBC Hgb Hct MCV MCH RDW Plt Count Lymph % (Auto) [place] % (Auto) [place] # Seg Neutrophils % Seg Neuts % (Manual) Lymphocytes % (Manual) Monocytes % (Manual) Nucleated RBC % Seg Neutrophils # Seg Neutrophils # Man Lymphocytes # (Manual) Monocytes # (Manual) Eosinophils # (Manual) Basophils # (Manual) PT INR POC ABG pH ABG pH POC ABG pCO2 POC ABG pO2 ABG pO2 ABG O2 Saturation ABG Base Excess ABG Hemoglobin Oxyhemoglobin Sodium Potassium Chloride Carbon Dioxide BUN Creatinine Glucose POC Glucose 189 H 175 H 190 H Calcium Phosphorus Magnesium Iron TIBC Ferritin Total Bilirubin AST ALT Alkaline Phosphatase Total Creatine Kinase Troponin T C-Reactive Protein Total Protein Albumin Triglycerides HDL Cholesterol Miscellaneous Test Crossmatch 08/25/17 08/25/17 08/26/17 07:02 11:53 05:30 WBC 33.5 H RBC 2.47 L Hgb 7.3 L Hct 23.0 L MCV MCH RDW 21.3 H Plt Count Lymph % (Auto) [place] % (Auto) [place] # Seg Neutrophils % Seg Neuts % (Manual) 92.0 H Lymphocytes % (Manual) 1.0 L Monocytes % (Manual) Nucleated RBC % Seg Neutrophils # Seg Neutrophils # Man 30.8 H Lymphocytes # (Manual) 0.3 L Monocytes # (Manual) Eosinophils # (Manual) Basophils # (Manual) PT INR POC ABG pH ABG pH POC ABG pCO2 POC ABG pO2 ABG pO2 ABG O2 Saturation ABG Base Excess ABG Hemoglobin Oxyhemoglobin Sodium Potassium Chloride Carbon Dioxide BUN 32 H Creatinine 5.0 H D Glucose 117 H POC Glucose 191 H Calcium 8.0 L Phosphorus Magnesium Iron TIBC Ferritin Total Bilirubin AST ALT Alkaline Phosphatase Total Creatine Kinase Troponin T C-Reactive Protein Total Protein Albumin Triglycerides HDL Cholesterol Miscellaneous Test Crossmatch 08/26/17 08/26/17 08/26/17 05:30 06:44 13:26 WBC RBC Hgb Hct MCV MCH RDW Plt Count Lymph % (Auto) [place] % (Auto) [place] # Seg Neutrophils % Seg Neuts % (Manual) Lymphocytes % (Manual) Monocytes % (Manual) Nucleated RBC % Seg Neutrophils # Seg Neutrophils # Man Lymphocytes # (Manual) Monocytes # (Manual) Eosinophils # (Manual) Basophils # (Manual) PT INR POC ABG pH ABG pH POC ABG pCO2 POC ABG pO2 ABG pO2 ABG O2 Saturation ABG Base Excess ABG Hemoglobin Oxyhemoglobin Sodium Potassium 5.2 H Chloride Carbon Dioxide BUN 80 H Creatinine 3.4 H Glucose 193 H POC Glucose 232 H 207 H Calcium 8.3 L Phosphorus 6.80 H D Magnesium 2.60 H Iron TIBC Ferritin Total Bilirubin AST 135 H ALT Alkaline Phosphatase 211 H Total Creatine Kinase Troponin T C-Reactive Protein Total Protein 4.8 L Albumin 2.0 L Triglycerides HDL Cholesterol Miscellaneous Test Crossmatch 08/27/17 08/27/17 08/27/17 01:08 06:20 06:20 WBC 35.0 H RBC 2.75 L Hgb 8.4 L Hct 25.1 L MCV MCH RDW 21.8 H Plt Count Lymph % (Auto) [place] % (Auto) [place] # Seg Neutrophils % Seg Neuts % (Manual) Lymphocytes % (Manual) 4.5 L Monocytes % (Manual) Nucleated RBC % Seg Neutrophils # Seg Neutrophils # Man 31.9 H Lymphocytes # (Manual) Monocytes # (Manual) 1.2 H Eosinophils # (Manual) Basophils # (Manual) PT INR POC ABG pH ABG pH POC ABG pCO2 POC ABG pO2 ABG pO2 ABG O2 Saturation ABG Base Excess ABG Hemoglobin Oxyhemoglobin Sodium Potassium Chloride Carbon Dioxide BUN 61 H Creatinine 2.6 H Glucose 184 H POC Glucose 146 H Calcium Phosphorus 4.90 H D Magnesium Iron TIBC Ferritin Total Bilirubin AST ALT Alkaline Phosphatase Total Creatine Kinase Troponin T C-Reactive Protein Total Protein Albumin Triglycerides HDL Cholesterol Miscellaneous Test Crossmatch 08/27/17 08/27/17 08/27/17 07:01 09:17 12:52 WBC RBC Hgb Hct MCV MCH RDW Plt Count Lymph % (Auto) [place] % (Auto) [place] # Seg Neutrophils % Seg Neuts % (Manual) Lymphocytes % (Manual) Monocytes % (Manual) Nucleated RBC % Seg Neutrophils # Seg Neutrophils # Man Lymphocytes # (Manual) Monocytes # (Manual) Eosinophils # (Manual) Basophils # (Manual) PT INR POC ABG pH ABG pH POC ABG pCO2 POC ABG pO2 ABG pO2 ABG O2 Saturation ABG Base Excess ABG Hemoglobin Oxyhemoglobin Sodium Potassium Chloride Carbon Dioxide BUN Creatinine Glucose POC Glucose 165 H 198 H 218 H Calcium Phosphorus Magnesium Iron TIBC Ferritin Total Bilirubin AST ALT Alkaline Phosphatase Total Creatine Kinase Troponin T C-Reactive Protein Total Protein Albumin Triglycerides HDL Cholesterol Miscellaneous Test Crossmatch 08/27/17 08/28/17 08/28/17 17:27 02:13 06:46 WBC RBC Hgb Hct MCV MCH RDW Plt Count Lymph % (Auto) [place] % (Auto) [place] # Seg Neutrophils % Seg Neuts % (Manual) Lymphocytes % (Manual) Monocytes % (Manual) Nucleated RBC % Seg Neutrophils # Seg Neutrophils # Man Lymphocytes # (Manual) Monocytes # (Manual) Eosinophils # (Manual) Basophils # (Manual) PT INR POC ABG pH ABG pH POC ABG pCO2 POC ABG pO2 ABG pO2 ABG O2 Saturation ABG Base Excess ABG Hemoglobin Oxyhemoglobin Sodium Potassium Chloride Carbon Dioxide BUN Creatinine Glucose POC Glucose 151 H 155 H 230 H Calcium Phosphorus Magnesium Iron TIBC Ferritin Total Bilirubin AST ALT Alkaline Phosphatase Total Creatine Kinase Troponin T C-Reactive Protein Total Protein Albumin Triglycerides HDL Cholesterol Miscellaneous Test Crossmatch 08/28/17 08/28/17 08/28/17 06:53 06:53 08:19 WBC 31.1 H RBC 2.26 L Hgb 6.8 L Hct 20.9 L MCV MCH RDW 21.7 H Plt Count Lymph % (Auto) [place] % (Auto) [place] # Seg Neutrophils % Seg Neuts % (Manual) 83.0 H Lymphocytes % (Manual) 4.0 L Monocytes % (Manual) Nucleated RBC % Seg Neutrophils # Seg Neutrophils # Man 25.8 H Lymphocytes # (Manual) Monocytes # (Manual) Eosinophils # (Manual) Basophils # (Manual) PT INR POC ABG pH ABG pH POC ABG pCO2 POC ABG pO2 ABG pO2 ABG O2 Saturation ABG Base Excess ABG Hemoglobin Oxyhemoglobin Sodium Potassium Chloride Carbon Dioxide BUN 81 H Creatinine 3.4 H Glucose 218 H POC Glucose 239 H Calcium Phosphorus 4.90 H Magnesium Iron TIBC Ferritin Total Bilirubin AST ALT Alkaline Phosphatase Total Creatine Kinase Troponin T C-Reactive Protein Total Protein Albumin Triglycerides HDL Cholesterol Miscellaneous Test Crossmatch 08/28/17 08/28/17 08/28/17 11:56 13:05 13:29 WBC RBC Hgb Hct MCV MCH RDW Plt Count Lymph % (Auto) [place] % (Auto) [place] # Seg Neutrophils % Seg Neuts % (Manual) Lymphocytes % (Manual) Monocytes % (Manual) Nucleated RBC % Seg Neutrophils # Seg Neutrophils # Man Lymphocytes # (Manual) Monocytes # (Manual) Eosinophils # (Manual) Basophils # (Manual) PT 16.7 H INR 1.29 H POC ABG pH ABG pH POC ABG pCO2 POC ABG pO2 338 H ABG pO2 ABG O2 Saturation ABG Base Excess ABG Hemoglobin Oxyhemoglobin Sodium Potassium Chloride Carbon Dioxide BUN Creatinine Glucose POC Glucose Calcium Phosphorus Magnesium Iron TIBC Ferritin Total Bilirubin AST ALT Alkaline Phosphatase Total Creatine Kinase Troponin T C-Reactive Protein Total Protein Albumin Triglycerides HDL Cholesterol Miscellaneous Test Crossmatch See Detail 08/28/17 08/28/17 08/29/17 16:22 19:20 04:24 WBC RBC Hgb Hct MCV MCH RDW Plt Count Lymph % (Auto) [place] % (Auto) [place] # Seg Neutrophils % Seg Neuts % (Manual) Lymphocytes % (Manual) Monocytes % (Manual) Nucleated RBC % Seg Neutrophils # Seg Neutrophils # Man Lymphocytes # (Manual) Monocytes # (Manual) Eosinophils # (Manual) Basophils # (Manual) PT INR POC ABG pH 7.469 H ABG pH POC ABG pCO2 POC ABG pO2 240 H ABG pO2 ABG O2 Saturation ABG Base Excess ABG Hemoglobin Oxyhemoglobin Sodium Potassium Chloride Carbon Dioxide BUN Creatinine Glucose POC Glucose 209 H 195 H Calcium Phosphorus Magnesium Iron TIBC Ferritin Total Bilirubin AST ALT Alkaline Phosphatase Total Creatine Kinase Troponin T C-Reactive Protein Total Protein Albumin Triglycerides HDL Cholesterol Miscellaneous Test Crossmatch 08/29/17 08/29/17 08/29/17 04:30 04:30 12:07 WBC 44.9 H* RBC Hgb Hct MCV MCH RDW 23.1 H Plt Count Lymph % (Auto) [place] % (Auto) [place] # Seg Neutrophils % Seg Neuts % (Manual) 38.0 L Lymphocytes % (Manual) 10.0 L Monocytes % (Manual) 10.0 H Nucleated RBC % 6.0 H Seg Neutrophils # Seg Neutrophils # Man 17.1 H Lymphocytes # (Manual) Monocytes # (Manual) 4.5 H Eosinophils # (Manual) Basophils # (Manual) PT INR POC ABG pH ABG pH POC ABG pCO2 POC ABG pO2 ABG pO2 ABG O2 Saturation ABG Base Excess ABG Hemoglobin Oxyhemoglobin Sodium Potassium Chloride Carbon Dioxide BUN 61 H Creatinine 2.4 H Glucose 226 H POC Glucose 200 H Calcium Phosphorus Magnesium Iron TIBC Ferritin Total Bilirubin AST ALT Alkaline Phosphatase Total Creatine Kinase Troponin T C-Reactive Protein Total Protein Albumin Triglycerides HDL Cholesterol Miscellaneous Test Crossmatch 08/29/17 08/29/17 08/29/17 12:30 12:30 17:23 WBC RBC Hgb Hct MCV MCH RDW Plt Count Lymph % (Auto) [place] % (Auto) [place] # Seg Neutrophils % Seg Neuts % (Manual) Lymphocytes % (Manual) Monocytes % (Manual) Nucleated RBC % Seg Neutrophils # Seg Neutrophils # Man Lymphocytes # (Manual) Monocytes # (Manual) Eosinophils # (Manual) Basophils # (Manual) PT INR POC ABG pH ABG pH POC ABG pCO2 POC ABG pO2 ABG pO2 ABG O2 Saturation ABG Base Excess ABG Hemoglobin Oxyhemoglobin Sodium Potassium Chloride Carbon Dioxide BUN Creatinine Glucose POC Glucose 270 H Calcium Phosphorus Magnesium Iron TIBC Ferritin Total Bilirubin AST ALT Alkaline Phosphatase Total Creatine Kinase Troponin T C-Reactive Protein 19.10 H Total Protein Albumin Triglycerides HDL Cholesterol Miscellaneous Test Flexitest 1 H Crossmatch 08/30/17 08/30/17 08/30/17 00:10 01:30 03:31 WBC RBC Hgb Hct MCV MCH RDW Plt Count Lymph % (Auto) [place] % (Auto) [place] # Seg Neutrophils % Seg Neuts % (Manual) Lymphocytes % (Manual) Monocytes % (Manual) Nucleated RBC % Seg Neutrophils # Seg Neutrophils # Man Lymphocytes # (Manual) Monocytes # (Manual) Eosinophils # (Manual) Basophils # (Manual) PT INR POC ABG pH 7.168 L 7.335 L ABG pH POC ABG pCO2 72.8 H POC ABG pO2 257 H 117 H ABG pO2 ABG O2 Saturation ABG Base Excess ABG Hemoglobin Oxyhemoglobin Sodium Potassium Chloride Carbon Dioxide BUN Creatinine Glucose POC Glucose 245 H Calcium Phosphorus Magnesium Iron TIBC Ferritin Total Bilirubin AST ALT Alkaline Phosphatase Total Creatine Kinase Troponin T C-Reactive Protein Total Protein Albumin Triglycerides HDL Cholesterol Miscellaneous Test Crossmatch 08/30/17 08/30/17 08/30/17 05:20 05:20 05:20 WBC 40.9 H* RBC 3.64 L Hgb Hct MCV MCH RDW 24.3 H Plt Count Lymph % (Auto) [place] % (Auto) [place] # Seg Neutrophils % Seg Neuts % (Manual) 80.0 H Lymphocytes % (Manual) 3.0 L Monocytes % (Manual) Nucleated RBC % 1.0 H Seg Neutrophils # Seg Neutrophils # Man 32.7 H Lymphocytes # (Manual) Monocytes # (Manual) Eosinophils # (Manual) Basophils # (Manual) PT INR POC ABG pH ABG pH POC ABG pCO2 POC ABG pO2 ABG pO2 ABG O2 Saturation ABG Base Excess ABG Hemoglobin Oxyhemoglobin Sodium Potassium Chloride Carbon Dioxide BUN 83 H Creatinine 2.9 H Glucose 334 H POC Glucose 309 H Calcium Phosphorus Magnesium Iron TIBC Ferritin Total Bilirubin AST ALT Alkaline Phosphatase Total Creatine Kinase Troponin T C-Reactive Protein Total Protein Albumin Triglycerides HDL Cholesterol Miscellaneous Test Crossmatch 10/06/17 10/06/17 10/07/17 12:18 17:36 00:17 WBC RBC Hgb Hct MCV MCH RDW Plt Count Lymph % (Auto) [place] % (Auto) [place] # Seg Neutrophils % Seg Neuts % (Manual) Lymphocytes % (Manual) Monocytes % (Manual) Nucleated RBC % Seg Neutrophils # Seg Neutrophils # Man Lymphocytes # (Manual) Monocytes # (Manual) Eosinophils # (Manual) Basophils # (Manual) PT INR POC ABG pH ABG pH POC ABG pCO2 POC ABG pO2 ABG pO2 ABG O2 Saturation ABG Base Excess ABG Hemoglobin Oxyhemoglobin Sodium Potassium Chloride Carbon Dioxide BUN Creatinine Glucose POC Glucose 273 H 293 H 360 H Calcium Phosphorus Magnesium Iron TIBC Ferritin Total Bilirubin AST ALT Alkaline Phosphatase Total Creatine Kinase Troponin T C-Reactive Protein Total Protein Albumin Triglycerides HDL Cholesterol Miscellaneous Test Crossmatch 08/31/17 08/31/17 08/31/17 05:30 05:30 05:32 WBC 29.9 H RBC 2.89 L Hgb 8.2 L Hct 24.7 L D MCV MCH RDW 24.4 H Plt Count Lymph % (Auto) [place] % (Auto) [place] # Seg Neutrophils % Seg Neuts % (Manual) Lymphocytes % (Manual) 2.0 L Monocytes % (Manual) Nucleated RBC % 2.0 H Seg Neutrophils # Seg Neutrophils # Man 18.5 H Lymphocytes # (Manual) 0.6 L Monocytes # (Manual) 0.9 H Eosinophils # (Manual) Basophils # (Manual) PT INR POC ABG pH ABG pH POC ABG pCO2 POC ABG pO2 ABG pO2 ABG O2 Saturation ABG Base Excess ABG Hemoglobin Oxyhemoglobin Sodium Potassium Chloride Carbon Dioxide BUN 62 H Creatinine 2.2 H Glucose 245 H POC Glucose 257 H Calcium Phosphorus 2.10 L D Magnesium 1.60 L Iron TIBC Ferritin Total Bilirubin AST ALT Alkaline Phosphatase Total Creatine Kinase Troponin T C-Reactive Protein Total Protein Albumin Triglycerides HDL Cholesterol Miscellaneous Test Crossmatch 08/31/17 08/31/17 08/31/17 11:56 12:05 18:14 WBC 32.5 H RBC 3.19 L Hgb 8.8 L Hct 27.9 L MCV MCH RDW 24.9 H Plt Count Lymph % (Auto) [place] % (Auto) [place] # Seg Neutrophils % Seg Neuts % (Manual) Lymphocytes % (Manual) 1.0 L Monocytes % (Manual) 12.0 H Nucleated RBC % 1.0 H Seg Neutrophils # Seg Neutrophils # Man 13.3 H Lymphocytes # (Manual) 0.3 L Monocytes # (Manual) 3.9 H Eosinophils # (Manual) Basophils # (Manual) PT INR POC ABG pH ABG pH POC ABG pCO2 POC ABG pO2 ABG pO2 ABG O2 Saturation ABG Base Excess ABG Hemoglobin Oxyhemoglobin Sodium Potassium Chloride Carbon Dioxide BUN Creatinine Glucose POC Glucose 245 H Calcium Phosphorus Magnesium Iron TIBC Ferritin Total Bilirubin AST ALT Alkaline Phosphatase Total Creatine Kinase Troponin T C-Reactive Protein Total Protein Albumin Triglycerides HDL Cholesterol Miscellaneous Test Crossmatch See Detail 08/31/17 08/31/17 08/31/17 18:14 18:15 18:22 WBC RBC Hgb Hct MCV MCH RDW Plt Count Lymph % (Auto) [place] % (Auto) [place] # Seg Neutrophils % Seg Neuts % (Manual) Lymphocytes % (Manual) Monocytes % (Manual) Nucleated RBC % Seg Neutrophils # Seg Neutrophils # Man Lymphocytes # (Manual) Monocytes # (Manual) Eosinophils # (Manual) Basophils # (Manual) PT 15.1 H INR POC ABG pH ABG pH POC ABG pCO2 POC ABG pO2 ABG pO2 ABG O2 Saturation ABG Base Excess ABG Hemoglobin Oxyhemoglobin Sodium 136 L Potassium Chloride Carbon Dioxide 21 L BUN 69 H Creatinine 2.3 H Glucose 227 H POC Glucose 240 H Calcium Phosphorus 2.40 L Magnesium 1.50 L Iron TIBC Ferritin Total Bilirubin AST 143 H ALT 114 H Alkaline Phosphatase 267 H Total Creatine Kinase Troponin T C-Reactive Protein Total Protein 4.1 L Albumin 1.8 L Triglycerides HDL Cholesterol Miscellaneous Test Crossmatch 08/31/17 09/01/17 09/01/17 23:53 05:00 05:00 WBC 33.9 H RBC 2.85 L Hgb 7.8 L Hct 24.8 L MCV MCH 27 L RDW 23.9 H Plt Count Lymph % (Auto) [place] % (Auto) [place] # Seg Neutrophils % Seg Neuts % (Manual) Lymphocytes % (Manual) 5.0 L Monocytes % (Manual) Nucleated RBC % Seg Neutrophils # Seg Neutrophils # Man 23.1 H Lymphocytes # (Manual) Monocytes # (Manual) Eosinophils # (Manual) Basophils # (Manual) PT INR POC ABG pH ABG pH POC ABG pCO2 POC ABG pO2 ABG pO2 ABG O2 Saturation ABG Base Excess ABG Hemoglobin Oxyhemoglobin Sodium Potassium Chloride Carbon Dioxide BUN 51 H Creatinine 1.8 H Glucose 195 H POC Glucose 301 H Calcium Phosphorus 1.70 L D Magnesium 1.60 L Iron TIBC Ferritin Total Bilirubin AST 80 H ALT 82 H Alkaline Phosphatase 243 H Total Creatine Kinase Troponin T C-Reactive Protein Total Protein 4.2 L Albumin 1.7 L Triglycerides HDL Cholesterol Miscellaneous Test Crossmatch 09/01/17 09/01/17 09/01/17 05:20 05:47 11:37 WBC RBC Hgb Hct MCV MCH RDW Plt Count Lymph % (Auto) [place] % (Auto) [place] # Seg Neutrophils % Seg Neuts % (Manual) Lymphocytes % (Manual) Monocytes % (Manual) Nucleated RBC % Seg Neutrophils # Seg Neutrophils # Man Lymphocytes # (Manual) Monocytes # (Manual) Eosinophils # (Manual) Basophils # (Manual) PT INR POC ABG pH ABG pH 7.348 L POC ABG pCO2 POC ABG pO2 ABG pO2 70.2 L ABG O2 Saturation ABG Base Excess ABG Hemoglobin 7.5 L Oxyhemoglobin Sodium Potassium Chloride Carbon Dioxide BUN Creatinine Glucose POC Glucose 230 H 254 H Calcium Phosphorus Magnesium Iron TIBC Ferritin Total Bilirubin AST ALT Alkaline Phosphatase Total Creatine Kinase Troponin T C-Reactive Protein Total Protein Albumin Triglycerides HDL Cholesterol Miscellaneous Test Crossmatch 09/01/17 09/01/17 09/02/17 17:39 23:14 04:55 WBC RBC Hgb Hct MCV MCH RDW Plt Count Lymph % (Auto) [place] % (Auto) [place] # Seg Neutrophils % Seg Neuts % (Manual) Lymphocytes % (Manual) Monocytes % (Manual) Nucleated RBC % Seg Neutrophils # Seg Neutrophils # Man Lymphocytes # (Manual) Monocytes # (Manual) Eosinophils # (Manual) Basophils # (Manual) PT INR POC ABG pH ABG pH POC ABG pCO2 POC ABG pO2 ABG pO2 124.8 H ABG O2 Saturation ABG Base Excess -2.9 L ABG Hemoglobin 5.8 L Oxyhemoglobin Sodium Potassium Chloride Carbon Dioxide BUN Creatinine Glucose POC Glucose 297 H 291 H Calcium Phosphorus Magnesium Iron TIBC Ferritin Total Bilirubin AST ALT Alkaline Phosphatase Total Creatine Kinase Troponin T C-Reactive Protein Total Protein Albumin Triglycerides HDL Cholesterol Miscellaneous Test Crossmatch 09/02/17 09/02/17 09/02/17 05:31 06:10 11:58 WBC RBC Hgb Hct MCV MCH RDW Plt Count Lymph % (Auto) [place] % (Auto) [place] # Seg Neutrophils % Seg Neuts % (Manual) Lymphocytes % (Manual) Monocytes % (Manual) Nucleated RBC % Seg Neutrophils # Seg Neutrophils # Man Lymphocytes # (Manual) Monocytes # (Manual) Eosinophils # (Manual) Basophils # (Manual) PT INR POC ABG pH ABG pH POC ABG pCO2 POC ABG pO2 ABG pO2 ABG O2 Saturation ABG Base Excess ABG Hemoglobin Oxyhemoglobin Sodium Potassium Chloride Carbon Dioxide BUN 68 H Creatinine 2.2 H Glucose 369 H POC Glucose 245 H 333 H Calcium 8.2 L Phosphorus Magnesium Iron TIBC Ferritin Total Bilirubin AST ALT Alkaline Phosphatase Total Creatine Kinase Troponin T C-Reactive Protein Total Protein Albumin Triglycerides HDL Cholesterol Miscellaneous Test Crossmatch 09/02/17 09/02/17 09/03/17 15:37 23:50 04:00 WBC RBC Hgb Hct MCV MCH RDW Plt Count Lymph % (Auto) [place] % (Auto) [place] # Seg Neutrophils % Seg Neuts % (Manual) Lymphocytes % (Manual) Monocytes % (Manual) Nucleated RBC % Seg Neutrophils # Seg Neutrophils # Man Lymphocytes # (Manual) Monocytes # (Manual) Eosinophils # (Manual) Basophils # (Manual) PT INR POC ABG pH ABG pH POC ABG pCO2 POC ABG pO2 ABG pO2 ABG O2 Saturation ABG Base Excess ABG Hemoglobin Oxyhemoglobin Sodium Potassium Chloride Carbon Dioxide BUN 59 H Creatinine 1.9 H Glucose 231 H POC Glucose 314 H 240 H Calcium 8.0 L Phosphorus Magnesium Iron TIBC Ferritin Total Bilirubin AST ALT Alkaline Phosphatase 265 H Total Creatine Kinase Troponin T C-Reactive Protein Total Protein 4.4 L Albumin 1.7 L Triglycerides 180 H HDL Cholesterol Miscellaneous Test Crossmatch 09/03/17 09/03/17 09/03/17 05:00 05:32 11:52 WBC 41.5 H* RBC 2.46 L Hgb 6.9 L Hct 21.3 L MCV MCH RDW 24.9 H Plt Count Lymph % (Auto) [place] % (Auto) [place] # Seg Neutrophils % Seg Neuts % (Manual) Lymphocytes % (Manual) 3.0 L Monocytes % (Manual) 9.5 H Nucleated RBC % 1.5 H Seg Neutrophils # Seg Neutrophils # Man 28.8 H Lymphocytes # (Manual) Monocytes # (Manual) 3.9 H Eosinophils # (Manual) Basophils # (Manual) PT INR POC ABG pH ABG pH POC ABG pCO2 POC ABG pO2 ABG pO2 ABG O2 Saturation ABG Base Excess ABG Hemoglobin Oxyhemoglobin Sodium Potassium Chloride Carbon Dioxide BUN Creatinine Glucose POC Glucose 188 H 285 H Calcium Phosphorus Magnesium Iron TIBC Ferritin Total Bilirubin AST ALT Alkaline Phosphatase Total Creatine Kinase Troponin T C-Reactive Protein Total Protein Albumin Triglycerides HDL Cholesterol Miscellaneous Test Crossmatch 09/03/17 09/03/17 09/03/17 16:55 17:44 23:56 WBC RBC Hgb Hct MCV MCH RDW Plt Count Lymph % (Auto) [place] % (Auto) [place] # Seg Neutrophils % Seg Neuts % (Manual) Lymphocytes % (Manual) Monocytes % (Manual) Nucleated RBC % Seg Neutrophils # Seg Neutrophils # Man Lymphocytes # (Manual) Monocytes # (Manual) Eosinophils # (Manual) Basophils # (Manual) PT INR POC ABG pH ABG pH POC ABG pCO2 POC ABG pO2 ABG pO2 ABG O2 Saturation ABG Base Excess ABG Hemoglobin Oxyhemoglobin Sodium Potassium Chloride Carbon Dioxide BUN Creatinine Glucose POC Glucose 217 H 193 H Calcium Phosphorus Magnesium Iron TIBC Ferritin Total Bilirubin AST ALT Alkaline Phosphatase Total Creatine Kinase Troponin T C-Reactive Protein Total Protein Albumin Triglycerides HDL Cholesterol Miscellaneous Test Crossmatch See Detail 09/03/17 09/04/17 09/04/17 Unknown 03:47 04:32 WBC 44.7 H* RBC 3.12 L Hgb 8.7 L Hct 26.7 L MCV MCH RDW 23.5 H Plt Count Lymph % (Auto) [place] % (Auto) [place] # Seg Neutrophils % Seg Neuts % (Manual) Lymphocytes % (Manual) 4.0 L Monocytes % (Manual) Nucleated RBC % 2.0 H Seg Neutrophils # Seg Neutrophils # Man 30.8 H Lymphocytes # (Manual) Monocytes # (Manual) 2.2 H Eosinophils # (Manual) Basophils # (Manual) PT INR POC ABG pH ABG pH POC ABG pCO2 POC ABG pO2 ABG pO2 133.4 H 135.0 H ABG O2 Saturation ABG Base Excess -2.5 L ABG Hemoglobin 5.8 L 7.9 L Oxyhemoglobin Sodium Potassium Chloride Carbon Dioxide BUN Creatinine Glucose POC Glucose Calcium Phosphorus Magnesium Iron TIBC Ferritin Total Bilirubin AST ALT Alkaline Phosphatase Total Creatine Kinase Troponin T C-Reactive Protein Total Protein Albumin Triglycerides HDL Cholesterol Miscellaneous Test Crossmatch 1009/04/17 09/04/17 04:32 05:48 10:43 WBC RBC Hgb Hct MCV MCH RDW Plt Count Lymph % (Auto) [place] % (Auto) [place] # Seg Neutrophils % Seg Neuts % (Manual) Lymphocytes % (Manual) Monocytes % (Manual) Nucleated RBC % Seg Neutrophils # Seg Neutrophils # Man Lymphocytes # (Manual) Monocytes # (Manual) Eosinophils # (Manual) Basophils # (Manual) PT INR POC ABG pH ABG pH POC ABG pCO2 POC ABG pO2 ABG pO2 ABG O2 Saturation ABG Base Excess ABG Hemoglobin Oxyhemoglobin Sodium 136 L Potassium 5.2 H D Chloride 94.2 L Carbon Dioxide BUN 71 H Creatinine 2.3 H Glucose 235 H POC Glucose 329 H Calcium 8.3 L Phosphorus Magnesium Iron TIBC Ferritin Total Bilirubin AST ALT Alkaline Phosphatase Total Creatine Kinase Troponin T C-Reactive Protein Total Protein Albumin Triglycerides HDL Cholesterol Miscellaneous Test Flexitest 1 H Crossmatch 09/04/17 09/04/17 09/05/17 12:38 17:30 00:15 WBC RBC Hgb Hct MCV MCH RDW Plt Count Lymph % (Auto) [place] % (Auto) [place] # Seg Neutrophils % Seg Neuts % (Manual) Lymphocytes % (Manual) Monocytes % (Manual) Nucleated RBC % Seg Neutrophils # Seg Neutrophils # Man Lymphocytes # (Manual) Monocytes # (Manual) Eosinophils # (Manual) Basophils # (Manual) PT INR POC ABG pH ABG pH POC ABG pCO2 POC ABG pO2 ABG pO2 ABG O2 Saturation ABG Base Excess ABG Hemoglobin Oxyhemoglobin Sodium Potassium Chloride Carbon Dioxide BUN Creatinine Glucose POC Glucose 444 H 331 H 362 H Calcium Phosphorus Magnesium Iron TIBC Ferritin Total Bilirubin AST ALT Alkaline Phosphatase Total Creatine Kinase Troponin T C-Reactive Protein Total Protein Albumin Triglycerides HDL Cholesterol Miscellaneous Test Crossmatch 09/05/17 09/05/17 09/05/17 03:55 03:55 12:12 WBC 35.3 H RBC 2.87 L Hgb 8.1 L Hct 24.6 L MCV MCH RDW 23.3 H Plt Count Lymph % (Auto) [place] % (Auto) [place] # Seg Neutrophils % Seg Neuts % (Manual) 89.5 H Lymphocytes % (Manual) 3.0 L Monocytes % (Manual) Nucleated RBC % 2.5 H Seg Neutrophils # Seg Neutrophils # Man 31.6 H Lymphocytes # (Manual) 1.1 L Monocytes # (Manual) Eosinophils # (Manual) Basophils # (Manual) PT INR POC ABG pH ABG pH POC ABG pCO2 POC ABG pO2 ABG pO2 ABG O2 Saturation ABG Base Excess ABG Hemoglobin Oxyhemoglobin Sodium 136 L Potassium Chloride 94.7 L Carbon Dioxide BUN 55 H Creatinine 1.8 H Glucose 193 H POC Glucose 344 H Calcium 8.1 L Phosphorus Magnesium Iron TIBC Ferritin Total Bilirubin AST ALT Alkaline Phosphatase Total Creatine Kinase Troponin T C-Reactive Protein Total Protein Albumin Triglycerides HDL Cholesterol Miscellaneous Test Crossmatch 09/05/17 09/05/17 09/05/17 14:32 15:32 16:41 WBC RBC Hgb Hct MCV MCH RDW Plt Count Lymph % (Auto) [place] % (Auto) [place] # Seg Neutrophils % Seg Neuts % (Manual) Lymphocytes % (Manual) Monocytes % (Manual) Nucleated RBC % Seg Neutrophils # Seg Neutrophils # Man Lymphocytes # (Manual) Monocytes # (Manual) Eosinophils # (Manual) Basophils # (Manual) PT INR POC ABG pH ABG pH POC ABG pCO2 POC ABG pO2 ABG pO2 ABG O2 Saturation ABG Base Excess ABG Hemoglobin Oxyhemoglobin Sodium Potassium Chloride Carbon Dioxide BUN Creatinine Glucose POC Glucose 265 H 145 H 188 H Calcium Phosphorus Magnesium Iron TIBC Ferritin Total Bilirubin AST ALT Alkaline Phosphatase Total Creatine Kinase Troponin T C-Reactive Protein Total Protein Albumin Triglycerides HDL Cholesterol Miscellaneous Test Crossmatch 09/05/17 09/05/17 09/05/17 17:28 18:38 20:10 WBC RBC Hgb Hct MCV MCH RDW Plt Count Lymph % (Auto) [place] % (Auto) [place] # Seg Neutrophils % Seg Neuts % (Manual) Lymphocytes % (Manual) Monocytes % (Manual) Nucleated RBC % Seg Neutrophils # Seg Neutrophils # Man Lymphocytes # (Manual) Monocytes # (Manual) Eosinophils # (Manual) Basophils # (Manual) PT INR POC ABG pH ABG pH POC ABG pCO2 POC ABG pO2 ABG pO2 ABG O2 Saturation ABG Base Excess ABG Hemoglobin Oxyhemoglobin Sodium Potassium Chloride Carbon Dioxide BUN Creatinine Glucose POC Glucose 246 H 271 H 165 H Calcium Phosphorus Magnesium Iron TIBC Ferritin Total Bilirubin AST ALT Alkaline Phosphatase Total Creatine Kinase Troponin T C-Reactive Protein Total Protein Albumin Triglycerides HDL Cholesterol Miscellaneous Test Crossmatch 09/05/17 09/05/17 09/06/17 21:06 23:07 00:10 WBC RBC Hgb Hct MCV MCH RDW Plt Count Lymph % (Auto) [place] % (Auto) [place] # Seg Neutrophils % Seg Neuts % (Manual) Lymphocytes % (Manual) Monocytes % (Manual) Nucleated RBC % Seg Neutrophils # Seg Neutrophils # Man Lymphocytes # (Manual) Monocytes # (Manual) Eosinophils # (Manual) Basophils # (Manual) PT INR POC ABG pH ABG pH POC ABG pCO2 POC ABG pO2 ABG pO2 ABG O2 Saturation ABG Base Excess ABG Hemoglobin Oxyhemoglobin Sodium Potassium Chloride Carbon Dioxide BUN Creatinine Glucose POC Glucose 134 H 135 H 147 H Calcium Phosphorus Magnesium Iron TIBC Ferritin Total Bilirubin AST ALT Alkaline Phosphatase Total Creatine Kinase Troponin T C-Reactive Protein Total Protein Albumin Triglycerides HDL Cholesterol Miscellaneous Test Crossmatch 09/06/17 09/06/17 09/06/17 01:08 02:01 03:08 WBC RBC Hgb Hct MCV MCH RDW Plt Count Lymph % (Auto) [place] % (Auto) [place] # Seg Neutrophils % Seg Neuts % (Manual) Lymphocytes % (Manual) Monocytes % (Manual) Nucleated RBC % Seg Neutrophils # Seg Neutrophils # Man Lymphocytes # (Manual) Monocytes # (Manual) Eosinophils # (Manual) Basophils # (Manual) PT INR POC ABG pH ABG pH POC ABG pCO2 POC ABG pO2 ABG pO2 ABG O2 Saturation ABG Base Excess ABG Hemoglobin Oxyhemoglobin Sodium Potassium Chloride Carbon Dioxide BUN Creatinine Glucose POC Glucose 133 H 146 H 135 H Calcium Phosphorus Magnesium Iron TIBC Ferritin Total Bilirubin AST ALT Alkaline Phosphatase Total Creatine Kinase Troponin T C-Reactive Protein Total Protein Albumin Triglycerides HDL Cholesterol Miscellaneous Test Crossmatch 09/06/17 09/06/17 09/06/17 05:30 05:30 05:30 WBC 38.6 H RBC 2.95 L Hgb 8.3 L Hct 25.3 L MCV MCH RDW 22.2 H Plt Count Lymph % (Auto) [place] % (Auto) [place] # Seg Neutrophils % Seg Neuts % (Manual) Lymphocytes % (Manual) 2.0 L Monocytes % (Manual) Nucleated RBC % 5.0 H Seg Neutrophils # Seg Neutrophils # Man 25.9 H Lymphocytes # (Manual) 0.8 L Monocytes # (Manual) 1.9 H Eosinophils # (Manual) Basophils # (Manual) PT INR POC ABG pH ABG pH POC ABG pCO2 POC ABG pO2 ABG pO2 ABG O2 Saturation ABG Base Excess ABG Hemoglobin Oxyhemoglobin Sodium 135 L Potassium Chloride 93.5 L Carbon Dioxide BUN 82 H Creatinine 2.3 H Glucose 148 H POC Glucose Calcium Phosphorus Magnesium Iron TIBC Ferritin Total Bilirubin AST ALT Alkaline Phosphatase Total Creatine Kinase Troponin T C-Reactive Protein 2.80 H Total Protein Albumin Triglycerides HDL Cholesterol Miscellaneous Test Crossmatch 09/06/17 09/06/17 09/06/17 05:48 08:04 09:06 WBC RBC Hgb Hct MCV MCH RDW Plt Count Lymph % (Auto) [place] % (Auto) [place] # Seg Neutrophils % Seg Neuts % (Manual) Lymphocytes % (Manual) Monocytes % (Manual) Nucleated RBC % Seg Neutrophils # Seg Neutrophils # Man Lymphocytes # (Manual) Monocytes # (Manual) Eosinophils # (Manual) Basophils # (Manual) PT INR POC ABG pH ABG pH POC ABG pCO2 POC ABG pO2 ABG pO2 ABG O2 Saturation ABG Base Excess ABG Hemoglobin Oxyhemoglobin Sodium Potassium Chloride Carbon Dioxide BUN Creatinine Glucose POC Glucose 152 H 164 H 172 H Calcium Phosphorus Magnesium Iron TIBC Ferritin Total Bilirubin AST ALT Alkaline Phosphatase Total Creatine Kinase Troponin T C-Reactive Protein Total Protein Albumin Triglycerides HDL Cholesterol Miscellaneous Test Crossmatch 09/06/17 09/06/17 09/06/17 09:57 10:19 10:57 WBC RBC Hgb Hct MCV MCH RDW Plt Count Lymph % (Auto) [place] % (Auto) [place] # Seg Neutrophils % Seg Neuts % (Manual) Lymphocytes % (Manual) Monocytes % (Manual) Nucleated RBC % Seg Neutrophils # Seg Neutrophils # Man Lymphocytes # (Manual) Monocytes # (Manual) Eosinophils # (Manual) Basophils # (Manual) PT INR POC ABG pH ABG pH POC ABG pCO2 POC ABG pO2 ABG pO2 ABG O2 Saturation ABG Base Excess ABG Hemoglobin Oxyhemoglobin Sodium Potassium Chloride Carbon Dioxide BUN Creatinine Glucose POC Glucose 186 H 162 H Calcium Phosphorus Magnesium Iron TIBC Ferritin Total Bilirubin AST ALT Alkaline Phosphatase Total Creatine Kinase Troponin T C-Reactive Protein Total Protein Albumin Triglycerides HDL Cholesterol Miscellaneous Test Flexitest 1 H Crossmatch 09/06/17 09/06/17 09/06/17 13:12 13:40 17:36 WBC RBC Hgb 8.9 L Hct 28.5 L MCV MCH RDW Plt Count Lymph % (Auto) [place] % (Auto) [place] # Seg Neutrophils % Seg Neuts % (Manual) Lymphocytes % (Manual) Monocytes % (Manual) Nucleated RBC % Seg Neutrophils # Seg Neutrophils # Man Lymphocytes # (Manual) Monocytes # (Manual) Eosinophils # (Manual) Basophils # (Manual) PT INR POC ABG pH ABG pH POC ABG pCO2 POC ABG pO2 ABG pO2 ABG O2 Saturation ABG Base Excess ABG Hemoglobin Oxyhemoglobin Sodium Potassium Chloride Carbon Dioxide BUN Creatinine Glucose POC Glucose 166 H 161 H Calcium Phosphorus Magnesium Iron TIBC Ferritin Total Bilirubin AST ALT Alkaline Phosphatase Total Creatine Kinase Troponin T C-Reactive Protein Total Protein Albumin Triglycerides HDL Cholesterol Miscellaneous Test Crossmatch 09/07/17 09/07/17 09/07/17 00:13 03:50 03:50 WBC 47.0 H* RBC 2.81 L Hgb 8.1 L Hct 24.1 L MCV MCH RDW 22.5 H Plt Count Lymph % (Auto) [place] % (Auto) [place] # Seg Neutrophils % Seg Neuts % (Manual) Lymphocytes % (Manual) 9.0 L Monocytes % (Manual) Nucleated RBC % 6.0 H Seg Neutrophils # Seg Neutrophils # Man 27.3 H Lymphocytes # (Manual) Monocytes # (Manual) 0.9 H Eosinophils # (Manual) 1.9 H Basophils # (Manual) PT INR POC ABG pH ABG pH POC ABG pCO2 POC ABG pO2 ABG pO2 ABG O2 Saturation ABG Base Excess ABG Hemoglobin Oxyhemoglobin Sodium 136 L Potassium Chloride 96.3 L Carbon Dioxide BUN 61 H Creatinine 1.7 H Glucose 132 H POC Glucose 183 H Calcium 7.8 L Phosphorus Magnesium Iron TIBC Ferritin Total Bilirubin AST ALT Alkaline Phosphatase Total Creatine Kinase Troponin T C-Reactive Protein Total Protein Albumin Triglycerides HDL Cholesterol Miscellaneous Test Crossmatch 09/07/17 09/07/17 09/07/17 05:12 05:23 11:48 WBC RBC Hgb Hct MCV MCH RDW Plt Count Lymph % (Auto) [place] % (Auto) [place] # Seg Neutrophils % Seg Neuts % (Manual) Lymphocytes % (Manual) Monocytes % (Manual) Nucleated RBC % Seg Neutrophils # Seg Neutrophils # Man Lymphocytes # (Manual) Monocytes # (Manual) Eosinophils # (Manual) Basophils # (Manual) PT INR POC ABG pH ABG pH POC ABG pCO2 POC ABG pO2 ABG pO2 ABG O2 Saturation ABG Base Excess ABG Hemoglobin 7.7 L Oxyhemoglobin 94.8 L Sodium Potassium Chloride Carbon Dioxide BUN Creatinine Glucose POC Glucose 162 H 200 H Calcium Phosphorus Magnesium Iron TIBC Ferritin Total Bilirubin AST ALT Alkaline Phosphatase Total Creatine Kinase Troponin T C-Reactive Protein Total Protein Albumin Triglycerides HDL Cholesterol Miscellaneous Test Crossmatch 09/07/17 09/07/17 09/08/17 17:07 18:21 00:06 WBC RBC Hgb Hct MCV MCH RDW Plt Count Lymph % (Auto) [place] % (Auto) [place] # Seg Neutrophils % Seg Neuts % (Manual) Lymphocytes % (Manual) Monocytes % (Manual) Nucleated RBC % Seg Neutrophils # Seg Neutrophils # Man Lymphocytes # (Manual) Monocytes # (Manual) Eosinophils # (Manual) Basophils # (Manual) PT INR POC ABG pH ABG pH POC ABG pCO2 POC ABG pO2 ABG pO2 ABG O2 Saturation ABG Base Excess ABG Hemoglobin Oxyhemoglobin Sodium Potassium Chloride Carbon Dioxide BUN Creatinine Glucose POC Glucose 181 H 168 H Calcium Phosphorus Magnesium Iron TIBC Ferritin Total Bilirubin AST ALT Alkaline Phosphatase Total Creatine Kinase Troponin T C-Reactive Protein Total Protein Albumin Triglycerides HDL Cholesterol Miscellaneous Test Crossmatch See Detail 09/08/17 09/08/17 09/08/17 04:05 04:05 04:41 WBC 49.7 H* RBC 2.58 L Hgb 7.3 L Hct 22.7 L MCV MCH RDW 22.5 H Plt Count Lymph % (Auto) [place] % (Auto) [place] # Seg Neutrophils % Seg Neuts % (Manual) 90.5 H Lymphocytes % (Manual) 1.5 L Monocytes % (Manual) Nucleated RBC % Seg Neutrophils # Seg Neutrophils # Man 45.0 H Lymphocytes # (Manual) 0.7 L Monocytes # (Manual) 1.7 H Eosinophils # (Manual) Basophils # (Manual) PT INR POC ABG pH ABG pH POC ABG pCO2 POC ABG pO2 ABG pO2 ABG O2 Saturation ABG Base Excess ABG Hemoglobin Oxyhemoglobin Sodium 132 L Potassium Chloride 92.1 L Carbon Dioxide BUN 82 H Creatinine 2.2 H Glucose 162 H POC Glucose 235 H Calcium 8.3 L Phosphorus 5.20 H D Magnesium Iron TIBC Ferritin Total Bilirubin AST ALT Alkaline Phosphatase 199 H Total Creatine Kinase Troponin T C-Reactive Protein Total Protein 4.5 L Albumin 1.7 L Triglycerides HDL Cholesterol Miscellaneous Test Crossmatch 09/08/17 09/08/17 09/08/17 09:21 11:52 17:38 WBC RBC Hgb Hct MCV MCH RDW Plt Count Lymph % (Auto) [place] % (Auto) [place] # Seg Neutrophils % Seg Neuts % (Manual) Lymphocytes % (Manual) Monocytes % (Manual) Nucleated RBC % Seg Neutrophils # Seg Neutrophils # Man Lymphocytes # (Manual) Monocytes # (Manual) Eosinophils # (Manual) Basophils # (Manual) PT INR POC ABG pH ABG pH POC ABG pCO2 POC ABG pO2 ABG pO2 218.5 H ABG O2 Saturation 99.3 H ABG Base Excess -3.5 L ABG Hemoglobin 7.7 L Oxyhemoglobin Sodium Potassium Chloride Carbon Dioxide BUN Creatinine Glucose POC Glucose 220 H 194 H Calcium Phosphorus Magnesium Iron TIBC Ferritin Total Bilirubin AST ALT Alkaline Phosphatase Total Creatine Kinase Troponin T C-Reactive Protein Total Protein Albumin Triglycerides HDL Cholesterol Miscellaneous Test Crossmatch 09/09/17 09/09/17 09/09/17 00:24 03:37 03:37 WBC 33.5 H RBC 2.36 L Hgb 6.7 L Hct 20.9 L MCV MCH RDW 22.7 H Plt Count Lymph % (Auto) [place] % (Auto) [place] # Seg Neutrophils % Seg Neuts % (Manual) Lymphocytes % (Manual) Monocytes % (Manual) Nucleated RBC % Seg Neutrophils # Seg Neutrophils # Man Lymphocytes # (Manual) Monocytes # (Manual) Eosinophils # (Manual) Basophils # (Manual) PT INR POC ABG pH ABG pH POC ABG pCO2 POC ABG pO2 ABG pO2 ABG O2 Saturation ABG Base Excess ABG Hemoglobin Oxyhemoglobin Sodium 132 L Potassium Chloride 91.6 L Carbon Dioxide 21 L BUN 101 H Creatinine 2.6 H Glucose 156 H POC Glucose 182 H Calcium 8.3 L Phosphorus 5.90 H Magnesium 2.60 H Iron TIBC Ferritin Total Bilirubin AST ALT Alkaline Phosphatase Total Creatine Kinase Troponin T C-Reactive Protein Total Protein Albumin Triglycerides HDL Cholesterol Miscellaneous Test Crossmatch 09/09/17 09/09/17 09/09/17 05:29 12:03 18:05 WBC RBC Hgb Hct MCV MCH RDW Plt Count Lymph % (Auto) [place] % (Auto) [place] # Seg Neutrophils % Seg Neuts % (Manual) Lymphocytes % (Manual) Monocytes % (Manual) Nucleated RBC % Seg Neutrophils # Seg Neutrophils # Man Lymphocytes # (Manual) Monocytes # (Manual) Eosinophils # (Manual) Basophils # (Manual) PT INR POC ABG pH ABG pH POC ABG pCO2 POC ABG pO2 ABG pO2 ABG O2 Saturation ABG Base Excess ABG Hemoglobin Oxyhemoglobin Sodium Potassium Chloride Carbon Dioxide BUN Creatinine Glucose POC Glucose 168 H 143 H 173 H Calcium Phosphorus Magnesium Iron TIBC Ferritin Total Bilirubin AST ALT Alkaline Phosphatase Total Creatine Kinase Troponin T C-Reactive Protein Total Protein Albumin Triglycerides HDL Cholesterol Miscellaneous Test Crossmatch 09/09/17 09/09/17 09/10/17 23:30 Unknown 05:04 WBC RBC Hgb Hct MCV MCH RDW Plt Count Lymph % (Auto) [place] % (Auto) [place] # Seg Neutrophils % Seg Neuts % (Manual) Lymphocytes % (Manual) Monocytes % (Manual) Nucleated RBC % Seg Neutrophils # Seg Neutrophils # Man Lymphocytes # (Manual) Monocytes # (Manual) Eosinophils # (Manual) Basophils # (Manual) PT INR POC ABG pH ABG pH 7.323 L POC ABG pCO2 POC ABG pO2 ABG pO2 94.1 H ABG O2 Saturation ABG Base Excess -4.8 L ABG Hemoglobin 8.0 L Oxyhemoglobin 94.9 L Sodium Potassium Chloride Carbon Dioxide BUN Creatinine Glucose POC Glucose 212 H 155 H Calcium Phosphorus Magnesium Iron TIBC Ferritin Total Bilirubin AST ALT Alkaline Phosphatase Total Creatine Kinase Troponin T C-Reactive Protein Total Protein Albumin Triglycerides HDL Cholesterol Miscellaneous Test Crossmatch 09/10/17 09/10/17 09/10/17 07:00 09:55 12:22 WBC 24.7 H RBC 2.62 L Hgb 7.5 L Hct 22.5 L MCV MCH RDW 20.8 H Plt Count Lymph % (Auto) [place] % (Auto) [place] # Seg Neutrophils % Seg Neuts % (Manual) Lymphocytes % (Manual) Monocytes % (Manual) Nucleated RBC % Seg Neutrophils # Seg Neutrophils # Man Lymphocytes # (Manual) Monocytes # (Manual) Eosinophils # (Manual) Basophils # (Manual) PT INR POC ABG pH ABG pH POC ABG pCO2 POC ABG pO2 ABG pO2 ABG O2 Saturation ABG Base Excess ABG Hemoglobin Oxyhemoglobin Sodium Potassium Chloride 97.9 L Carbon Dioxide BUN 78 H Creatinine 2.0 H Glucose 126 H POC Glucose 183 H Calcium 8.2 L Phosphorus Magnesium Iron TIBC Ferritin Total Bilirubin AST ALT Alkaline Phosphatase Total Creatine Kinase Troponin T C-Reactive Protein Total Protein Albumin Triglycerides HDL Cholesterol Miscellaneous Test Crossmatch 09/11/17 09/11/17 09/11/17 00:08 03:50 05:28 WBC 21.6 H RBC 2.52 L Hgb 7.4 L Hct 22.2 L MCV MCH RDW 21.5 H Plt Count Lymph % (Auto) [place] % (Auto) [place] # Seg Neutrophils % Seg Neuts % (Manual) 92.0 H Lymphocytes % (Manual) 3.0 L Monocytes % (Manual) Nucleated RBC % Seg Neutrophils # Seg Neutrophils # Man 19.9 H Lymphocytes # (Manual) 0.6 L Monocytes # (Manual) Eosinophils # (Manual) Basophils # (Manual) PT INR POC ABG pH ABG pH POC ABG pCO2 POC ABG pO2 ABG pO2 ABG O2 Saturation ABG Base Excess ABG Hemoglobin Oxyhemoglobin Sodium Potassium Chloride Carbon Dioxide BUN Creatinine Glucose POC Glucose 213 H 181 H Calcium Phosphorus Magnesium Iron TIBC Ferritin Total Bilirubin AST ALT Alkaline Phosphatase Total Creatine Kinase Troponin T C-Reactive Protein Total Protein Albumin Triglycerides HDL Cholesterol Miscellaneous Test Crossmatch 09/11/17 09/11/17 09/11/17 11:55 17:56 23:12 WBC RBC Hgb Hct MCV MCH RDW Plt Count Lymph % (Auto) [place] % (Auto) [place] # Seg Neutrophils % Seg Neuts % (Manual) Lymphocytes % (Manual) Monocytes % (Manual) Nucleated RBC % Seg Neutrophils # Seg Neutrophils # Man Lymphocytes # (Manual) Monocytes # (Manual) Eosinophils # (Manual) Basophils # (Manual) PT INR POC ABG pH ABG pH POC ABG pCO2 POC ABG pO2 ABG pO2 ABG O2 Saturation ABG Base Excess ABG Hemoglobin Oxyhemoglobin Sodium Potassium Chloride Carbon Dioxide 21 L BUN 80 H Creatinine 2.1 H Glucose 170 H POC Glucose 277 H 206 H Calcium 8.0 L Phosphorus Magnesium Iron TIBC Ferritin Total Bilirubin AST ALT Alkaline Phosphatase Total Creatine Kinase Troponin T C-Reactive Protein Total Protein Albumin Triglycerides HDL Cholesterol Miscellaneous Test Crossmatch 09/11/17 09/12/17 09/12/17 23:36 05:25 05:25 WBC 17.4 H RBC 2.29 L Hgb 6.7 L Hct 20.4 L MCV MCH RDW 21.2 H Plt Count Lymph % (Auto) [place] % (Auto) [place] # Seg Neutrophils % Seg Neuts % (Manual) 79.0 H Lymphocytes % (Manual) 5.0 L Monocytes % (Manual) Nucleated RBC % 1.0 H Seg Neutrophils # Seg Neutrophils # Man 13.7 H Lymphocytes # (Manual) 0.9 L Monocytes # (Manual) 1.2 H Eosinophils # (Manual) Basophils # (Manual) PT INR POC ABG pH ABG pH POC ABG pCO2 POC ABG pO2 ABG pO2 ABG O2 Saturation ABG Base Excess ABG Hemoglobin Oxyhemoglobin Sodium Potassium Chloride Carbon Dioxide BUN Creatinine Glucose POC Glucose 190 H Calcium Phosphorus Magnesium Iron 22 L TIBC 81 L Ferritin Total Bilirubin AST ALT Alkaline Phosphatase Total Creatine Kinase Troponin T C-Reactive Protein Total Protein Albumin Triglycerides HDL Cholesterol Miscellaneous Test Crossmatch 09/12/17 09/12/17 09/12/17 05:25 05:36 09:14 WBC RBC Hgb Hct MCV MCH RDW Plt Count Lymph % (Auto) [place] % (Auto) [place] # Seg Neutrophils % Seg Neuts % (Manual) Lymphocytes % (Manual) Monocytes % (Manual) Nucleated RBC % Seg Neutrophils # Seg Neutrophils # Man Lymphocytes # (Manual) Monocytes # (Manual) Eosinophils # (Manual) Basophils # (Manual) PT INR POC ABG pH ABG pH POC ABG pCO2 POC ABG pO2 ABG pO2 ABG O2 Saturation ABG Base Excess ABG Hemoglobin Oxyhemoglobin Sodium Potassium Chloride Carbon Dioxide BUN Creatinine Glucose POC Glucose 141 H Calcium Phosphorus Magnesium Iron TIBC Ferritin > 2000.0 H Total Bilirubin AST ALT Alkaline Phosphatase Total Creatine Kinase Troponin T C-Reactive Protein Total Protein Albumin Triglycerides HDL Cholesterol Miscellaneous Test Crossmatch See Detail 09/12/17 09/12/17 09/12/17 11:18 15:22 17:18 WBC RBC Hgb 8.5 L Hct 25.4 L MCV MCH RDW Plt Count Lymph % (Auto) [place] % (Auto) [place] # Seg Neutrophils % Seg Neuts % (Manual) Lymphocytes % (Manual) Monocytes % (Manual) Nucleated RBC % Seg Neutrophils # Seg Neutrophils # Man Lymphocytes # (Manual) Monocytes # (Manual) Eosinophils # (Manual) Basophils # (Manual) PT INR POC ABG pH ABG pH POC ABG pCO2 POC ABG pO2 ABG pO2 ABG O2 Saturation ABG Base Excess ABG Hemoglobin Oxyhemoglobin Sodium Potassium Chloride Carbon Dioxide BUN Creatinine Glucose POC Glucose 262 H 193 H Calcium Phosphorus Magnesium Iron TIBC Ferritin Total Bilirubin AST ALT Alkaline Phosphatase Total Creatine Kinase Troponin T C-Reactive Protein Total Protein Albumin Triglycerides HDL Cholesterol Miscellaneous Test Crossmatch 09/13/17 09/13/17 09/13/17 00:05 06:25 11:36 WBC RBC Hgb Hct MCV MCH RDW Plt Count Lymph % (Auto) [place] % (Auto) [place] # Seg Neutrophils % Seg Neuts % (Manual) Lymphocytes % (Manual) Monocytes % (Manual) Nucleated RBC % Seg Neutrophils # Seg Neutrophils # Man Lymphocytes # (Manual) Monocytes # (Manual) Eosinophils # (Manual) Basophils # (Manual) PT INR POC ABG pH 7.347 L ABG pH POC ABG pCO2 34.3 L POC ABG pO2 134 H ABG pO2 ABG O2 Saturation ABG Base Excess ABG Hemoglobin Oxyhemoglobin Sodium Potassium Chloride Carbon Dioxide BUN Creatinine Glucose POC Glucose 235 H 286 H Calcium Phosphorus Magnesium Iron TIBC Ferritin Total Bilirubin AST ALT Alkaline Phosphatase Total Creatine Kinase Troponin T C-Reactive Protein Total Protein Albumin Triglycerides HDL Cholesterol Miscellaneous Test Crossmatch 09/13/17 09/13/17 09/13/17 11:56 17:25 23:18 WBC RBC Hgb Hct MCV MCH RDW Plt Count Lymph % (Auto) [place] % (Auto) [place] # Seg Neutrophils % Seg Neuts % (Manual) Lymphocytes % (Manual) Monocytes % (Manual) Nucleated RBC % Seg Neutrophils # Seg Neutrophils # Man Lymphocytes # (Manual) Monocytes # (Manual) Eosinophils # (Manual) Basophils # (Manual) PT INR POC ABG pH ABG pH POC ABG pCO2 POC ABG pO2 ABG pO2 ABG O2 Saturation ABG Base Excess ABG Hemoglobin Oxyhemoglobin Sodium Potassium Chloride Carbon Dioxide BUN Creatinine Glucose POC Glucose 318 H 278 H 230 H Calcium Phosphorus Magnesium Iron TIBC Ferritin Total Bilirubin AST ALT Alkaline Phosphatase Total Creatine Kinase Troponin T C-Reactive Protein Total Protein Albumin Triglycerides HDL Cholesterol Miscellaneous Test Crossmatch 09/13/17 09/13/17 09/13/17 Unknown Unknown Unknown WBC 15.6 H RBC 2.72 L Hgb 8.1 L Hct 23.9 L MCV MCH RDW 19.5 H Plt Count 137 L Lymph % (Auto) [place] % (Auto) [place] # Seg Neutrophils % Seg Neuts % (Manual) 73.0 H Lymphocytes % (Manual) 3.0 L Monocytes % (Manual) 19.0 H Nucleated RBC % 2.0 H Seg Neutrophils # Seg Neutrophils # Man 11.4 H Lymphocytes # (Manual) 0.5 L Monocytes # (Manual) 3.0 H Eosinophils # (Manual) Basophils # (Manual) PT INR POC ABG pH ABG pH POC ABG pCO2 POC ABG pO2 ABG pO2 ABG O2 Saturation ABG Base Excess ABG Hemoglobin Oxyhemoglobin Sodium Potassium Chloride Carbon Dioxide 19 L BUN 103 H Creatinine 2.6 H Glucose 173 H POC Glucose Calcium Phosphorus Magnesium Iron TIBC Ferritin Total Bilirubin AST ALT Alkaline Phosphatase Total Creatine Kinase Troponin T C-Reactive Protein Total Protein Albumin < 0.2 L Triglycerides HDL Cholesterol Miscellaneous Test Crossmatch 09/14/17 09/14/17 09/14/17 03:15 03:15 05:16 WBC 12.5 H RBC 2.55 L Hgb 7.6 L Hct 22.5 L MCV MCH RDW 19.8 H Plt Count 139 L Lymph % (Auto) [place] % (Auto) [place] # Seg Neutrophils % Seg Neuts % (Manual) Lymphocytes % (Manual) Monocytes % (Manual) Nucleated RBC % Seg Neutrophils # Seg Neutrophils # Man Lymphocytes # (Manual) Monocytes # (Manual) Eosinophils # (Manual) Basophils # (Manual) PT INR POC ABG pH ABG pH POC ABG pCO2 POC ABG pO2 ABG pO2 ABG O2 Saturation ABG Base Excess ABG Hemoglobin Oxyhemoglobin Sodium Potassium Chloride Carbon Dioxide BUN 75 H Creatinine 2.1 H Glucose 217 H POC Glucose 283 H Calcium Phosphorus 2.20 L D Magnesium Iron TIBC Ferritin Total Bilirubin AST ALT Alkaline Phosphatase Total Creatine Kinase Troponin T C-Reactive Protein Total Protein Albumin Triglycerides HDL Cholesterol Miscellaneous Test Crossmatch 09/14/17 09/14/17 09/15/17 12:11 17:47 00:03 WBC RBC Hgb Hct MCV MCH RDW Plt Count Lymph % (Auto) [place] % (Auto) [place] # Seg Neutrophils % Seg Neuts % (Manual) Lymphocytes % (Manual) Monocytes % (Manual) Nucleated RBC % Seg Neutrophils # Seg Neutrophils # Man Lymphocytes # (Manual) Monocytes # (Manual) Eosinophils # (Manual) Basophils # (Manual) PT INR POC ABG pH ABG pH POC ABG pCO2 POC ABG pO2 ABG pO2 ABG O2 Saturation ABG Base Excess ABG Hemoglobin Oxyhemoglobin Sodium Potassium Chloride Carbon Dioxide BUN Creatinine Glucose POC Glucose 251 H 289 H 229 H Calcium Phosphorus Magnesium Iron TIBC Ferritin Total Bilirubin AST ALT Alkaline Phosphatase Total Creatine Kinase Troponin T C-Reactive Protein Total Protein Albumin Triglycerides HDL Cholesterol Miscellaneous Test Crossmatch 09/15/17 09/15/17 09/15/17 05:00 05:00 05:30 WBC 11.7 H RBC 2.50 L Hgb 7.4 L Hct 22.7 L MCV MCH RDW 20.5 H Plt Count Lymph % (Auto) [place] % (Auto) [place] # Seg Neutrophils % Seg Neuts % (Manual) Lymphocytes % (Manual) 11.0 L Monocytes % (Manual) 11.0 H Nucleated RBC % Seg Neutrophils # Seg Neutrophils # Man Lymphocytes # (Manual) Monocytes # (Manual) 1.3 H Eosinophils # (Manual) Basophils # (Manual) PT INR POC ABG pH ABG pH POC ABG pCO2 POC ABG pO2 ABG pO2 ABG O2 Saturation ABG Base Excess ABG Hemoglobin Oxyhemoglobin Sodium Potassium Chloride 97.0 L Carbon Dioxide 21 L BUN 94 H Creatinine 2.4 H Glucose 194 H POC Glucose 225 H Calcium Phosphorus Magnesium Iron TIBC Ferritin Total Bilirubin AST ALT Alkaline Phosphatase Total Creatine Kinase Troponin T C-Reactive Protein Total Protein Albumin Triglycerides HDL Cholesterol Miscellaneous Test Crossmatch 09/15/17 09/15/17 09/15/17 07:48 11:38 12:45 WBC RBC 1.93 L Hgb 5.7 L* Hct 17.1 L* MCV MCH RDW 20.2 H Plt Count 125 L Lymph % (Auto) [place] % (Auto) [place] # Seg Neutrophils % Seg Neuts % (Manual) 79.0 H Lymphocytes % (Manual) 8.0 L Monocytes % (Manual) Nucleated RBC % Seg Neutrophils # Seg Neutrophils # Man Lymphocytes # (Manual) 0.8 L Monocytes # (Manual) Eosinophils # (Manual) Basophils # (Manual) PT INR POC ABG pH ABG pH POC ABG pCO2 POC ABG pO2 ABG pO2 ABG O2 Saturation ABG Base Excess ABG Hemoglobin Oxyhemoglobin Sodium Potassium Chloride Carbon Dioxide BUN Creatinine Glucose POC Glucose 245 H 253 H Calcium Phosphorus Magnesium Iron TIBC Ferritin Total Bilirubin AST ALT Alkaline Phosphatase Total Creatine Kinase Troponin T C-Reactive Protein Total Protein Albumin Triglycerides HDL Cholesterol Miscellaneous Test Crossmatch 09/15/17 09/15/17 09/15/17 12:45 12:45 22:25 WBC 19.6 H RBC 3.32 L Hgb 10.0 L D Hct 29.3 L D MCV MCH RDW 17.0 H Plt Count 123 L Lymph % (Auto) [place] % (Auto) [place] # Seg Neutrophils % Seg Neuts % (Manual) Lymphocytes % (Manual) 12.0 L Monocytes % (Manual) Nucleated RBC % 5.0 H Seg Neutrophils # Seg Neutrophils # Man 11.0 H Lymphocytes # (Manual) Monocytes # (Manual) 1.2 H Eosinophils # (Manual) Basophils # (Manual) PT 15.4 H INR 1.16 H POC ABG pH ABG pH POC ABG pCO2 POC ABG pO2 ABG pO2 ABG O2 Saturation ABG Base Excess ABG Hemoglobin Oxyhemoglobin Sodium Potassium Chloride Carbon Dioxide BUN Creatinine Glucose POC Glucose Calcium Phosphorus Magnesium Iron TIBC Ferritin Total Bilirubin AST ALT Alkaline Phosphatase Total Creatine Kinase Troponin T C-Reactive Protein Total Protein Albumin Triglycerides HDL Cholesterol Miscellaneous Test Crossmatch See Detail 09/15/17 09/15/17 09/16/17 22:25 23:38 01:26 WBC RBC Hgb Hct MCV MCH RDW Plt Count Lymph % (Auto) [place] % (Auto) [place] # Seg Neutrophils % Seg Neuts % (Manual) Lymphocytes % (Manual) Monocytes % (Manual) Nucleated RBC % Seg Neutrophils # Seg Neutrophils # Man Lymphocytes # (Manual) Monocytes # (Manual) Eosinophils # (Manual) Basophils # (Manual) PT INR POC ABG pH ABG pH POC ABG pCO2 POC ABG pO2 ABG pO2 ABG O2 Saturation ABG Base Excess ABG Hemoglobin Oxyhemoglobin Sodium Potassium Chloride Carbon Dioxide 17 L BUN 100 H Creatinine 2.6 H Glucose POC Glucose 58 L 132 H Calcium 8.3 L Phosphorus Magnesium 1.60 L Iron TIBC Ferritin Total Bilirubin 2.80 H AST 118 H ALT Alkaline Phosphatase 316 H Total Creatine Kinase Troponin T C-Reactive Protein Total Protein 4.0 L Albumin 1.8 L Triglycerides HDL Cholesterol Miscellaneous Test Crossmatch 09/16/17 09/16/17 09/16/17 05:30 05:30 05:54 WBC 24.6 H RBC 3.22 L Hgb 9.8 L Hct 28.6 L MCV MCH RDW 17.4 H Plt Count 127 L Lymph % (Auto) [place] % (Auto) [place] # Seg Neutrophils % Seg Neuts % (Manual) Lymphocytes % (Manual) Monocytes % (Manual) Nucleated RBC % Seg Neutrophils # Seg Neutrophils # Man Lymphocytes # (Manual) Monocytes # (Manual) Eosinophils # (Manual) Basophils # (Manual) PT INR POC ABG pH ABG pH POC ABG pCO2 POC ABG pO2 ABG pO2 ABG O2 Saturation ABG Base Excess ABG Hemoglobin Oxyhemoglobin Sodium Potassium Chloride Carbon Dioxide 18 L BUN 109 H Creatinine 2.5 H Glucose 140 H POC Glucose 154 H Calcium Phosphorus 4.80 H Magnesium Iron TIBC Ferritin Total Bilirubin 2.40 H AST 90 H ALT Alkaline Phosphatase 298 H Total Creatine Kinase 20 L Troponin T C-Reactive Protein Total Protein 4.1 L Albumin 1.8 L Triglycerides HDL Cholesterol Miscellaneous Test Crossmatch 09/16/17 09/16/17 09/16/17 11:49 17:04 23:18 WBC RBC Hgb Hct MCV MCH RDW Plt Count Lymph % (Auto) [place] % (Auto) [place] # Seg Neutrophils % Seg Neuts % (Manual) Lymphocytes % (Manual) Monocytes % (Manual) Nucleated RBC % Seg Neutrophils # Seg Neutrophils # Man Lymphocytes # (Manual) Monocytes # (Manual) Eosinophils # (Manual) Basophils # (Manual) PT INR POC ABG pH ABG pH POC ABG pCO2 POC ABG pO2 ABG pO2 ABG O2 Saturation ABG Base Excess ABG Hemoglobin Oxyhemoglobin Sodium Potassium Chloride Carbon Dioxide BUN Creatinine Glucose POC Glucose 167 H 156 H 162 H Calcium Phosphorus Magnesium Iron TIBC Ferritin Total Bilirubin AST ALT Alkaline Phosphatase Total Creatine Kinase Troponin T C-Reactive Protein Total Protein Albumin Triglycerides HDL Cholesterol Miscellaneous Test Crossmatch 09/17/17 09/17/17 09/17/17 05:27 06:10 06:10 WBC 34.6 H RBC 2.75 L Hgb 8.4 L Hct 24.8 L MCV MCH RDW 18.3 H Plt Count Lymph % (Auto) [place] % (Auto) [place] # Seg Neutrophils % Seg Neuts % (Manual) 77.0 H Lymphocytes % (Manual) 5.0 L Monocytes % (Manual) Nucleated RBC % 2.0 H Seg Neutrophils # Seg Neutrophils # Man 26.6 H Lymphocytes # (Manual) Monocytes # (Manual) 2.4 H Eosinophils # (Manual) Basophils # (Manual) PT INR POC ABG pH ABG pH POC ABG pCO2 POC ABG pO2 ABG pO2 ABG O2 Saturation ABG Base Excess ABG Hemoglobin Oxyhemoglobin Sodium Potassium Chloride Carbon Dioxide BUN 82 H Creatinine 2.1 H Glucose 252 H POC Glucose 243 H Calcium 8.3 L Phosphorus Magnesium Iron TIBC Ferritin Total Bilirubin AST ALT Alkaline Phosphatase Total Creatine Kinase Troponin T C-Reactive Protein Total Protein Albumin Triglycerides HDL Cholesterol Miscellaneous Test Crossmatch 09/17/17 09/17/17 09/18/17 11:42 17:12 00:08 WBC RBC Hgb Hct MCV MCH RDW Plt Count Lymph % (Auto) [place] % (Auto) [place] # Seg Neutrophils % Seg Neuts % (Manual) Lymphocytes % (Manual) Monocytes % (Manual) Nucleated RBC % Seg Neutrophils # Seg Neutrophils # Man Lymphocytes # (Manual) Monocytes # (Manual) Eosinophils # (Manual) Basophils # (Manual) PT INR POC ABG pH ABG pH POC ABG pCO2 POC ABG pO2 ABG pO2 ABG O2 Saturation ABG Base Excess ABG Hemoglobin Oxyhemoglobin Sodium Potassium Chloride Carbon Dioxide BUN Creatinine Glucose POC Glucose 232 H 309 H 275 H Calcium Phosphorus Magnesium Iron TIBC Ferritin Total Bilirubin AST ALT Alkaline Phosphatase Total Creatine Kinase Troponin T C-Reactive Protein Total Protein Albumin Triglycerides HDL Cholesterol Miscellaneous Test Crossmatch 09/18/17 09/18/17 09/18/17 05:10 05:10 05:23 WBC 24.4 H RBC 2.57 L Hgb 7.8 L Hct 23.2 L MCV MCH RDW 19.5 H Plt Count Lymph % (Auto) [place] % (Auto) [place] # Seg Neutrophils % Seg Neuts % (Manual) 78.0 H Lymphocytes % (Manual) 6.0 L Monocytes % (Manual) Nucleated RBC % 2.0 H Seg Neutrophils # Seg Neutrophils # Man 19.0 H Lymphocytes # (Manual) Monocytes # (Manual) Eosinophils # (Manual) Basophils # (Manual) PT INR POC ABG pH ABG pH POC ABG pCO2 POC ABG pO2 ABG pO2 ABG O2 Saturation ABG Base Excess ABG Hemoglobin Oxyhemoglobin Sodium Potassium Chloride Carbon Dioxide BUN 103 H Creatinine 2.8 H Glucose 173 H POC Glucose 224 H Calcium Phosphorus Magnesium Iron TIBC Ferritin Total Bilirubin AST ALT Alkaline Phosphatase Total Creatine Kinase Troponin T C-Reactive Protein Total Protein Albumin Triglycerides HDL Cholesterol Miscellaneous Test Crossmatch 09/18/17 09/18/17 09/18/17 13:59 18:35 23:19 WBC RBC Hgb Hct MCV MCH RDW Plt Count Lymph % (Auto) [place] % (Auto) [place] # Seg Neutrophils % Seg Neuts % (Manual) Lymphocytes % (Manual) Monocytes % (Manual) Nucleated RBC % Seg Neutrophils # Seg Neutrophils # Man Lymphocytes # (Manual) Monocytes # (Manual) Eosinophils # (Manual) Basophils # (Manual) PT INR POC ABG pH ABG pH POC ABG pCO2 POC ABG pO2 ABG pO2 ABG O2 Saturation ABG Base Excess ABG Hemoglobin Oxyhemoglobin Sodium Potassium Chloride Carbon Dioxide BUN Creatinine Glucose POC Glucose 268 H 220 H 188 H Calcium Phosphorus Magnesium Iron TIBC Ferritin Total Bilirubin AST ALT Alkaline Phosphatase Total Creatine Kinase Troponin T C-Reactive Protein Total Protein Albumin Triglycerides HDL Cholesterol Miscellaneous Test Crossmatch 09/19/17 09/19/17 09/19/17 05:45 06:00 11:41 WBC 17.6 H RBC 2.57 L Hgb 7.9 L Hct 23.2 L MCV MCH RDW 19.0 H Plt Count Lymph % (Auto) [place] % (Auto) [place] # Seg Neutrophils % Seg Neuts % (Manual) Lymphocytes % (Manual) 9.0 L Monocytes % (Manual) Nucleated RBC % Seg Neutrophils # Seg Neutrophils # Man 11.4 H Lymphocytes # (Manual) Monocytes # (Manual) 0.9 H Eosinophils # (Manual) Basophils # (Manual) PT INR POC ABG pH ABG pH POC ABG pCO2 POC ABG pO2 ABG pO2 ABG O2 Saturation ABG Base Excess ABG Hemoglobin Oxyhemoglobin Sodium Potassium Chloride Carbon Dioxide BUN Creatinine Glucose POC Glucose 178 H 126 H Calcium Phosphorus Magnesium Iron TIBC Ferritin Total Bilirubin AST ALT Alkaline Phosphatase Total Creatine Kinase Troponin T C-Reactive Protein Total Protein Albumin Triglycerides HDL Cholesterol Miscellaneous Test Crossmatch 09/19/17 09/19/17 09/20/17 17:08 23:46 04:46 WBC RBC Hgb Hct MCV MCH RDW Plt Count Lymph % (Auto) [place] % (Auto) [place] # Seg Neutrophils % Seg Neuts % (Manual) Lymphocytes % (Manual) Monocytes % (Manual) Nucleated RBC % Seg Neutrophils # Seg Neutrophils # Man Lymphocytes # (Manual) Monocytes # (Manual) Eosinophils # (Manual) Basophils # (Manual) PT INR POC ABG pH ABG pH POC ABG pCO2 POC ABG pO2 ABG pO2 ABG O2 Saturation ABG Base Excess ABG Hemoglobin Oxyhemoglobin Sodium Potassium 5.2 H D Chloride 97.4 L Carbon Dioxide 20 L BUN 98 H Creatinine 2.4 H Glucose 187 H POC Glucose 263 H 161 H Calcium Phosphorus Magnesium Iron TIBC Ferritin Total Bilirubin AST ALT Alkaline Phosphatase Total Creatine Kinase Troponin T C-Reactive Protein Total Protein Albumin Triglycerides HDL Cholesterol Miscellaneous Test Crossmatch 09/20/17 09/20/17 09/20/17 05:38 11:36 11:41 WBC 24.5 H RBC 2.84 L Hgb 8.2 L Hct 26.2 L MCV MCH RDW 20.0 H Plt Count 470 H Lymph % (Auto) [place] % (Auto) [place] # Seg Neutrophils % Seg Neuts % (Manual) Lymphocytes % (Manual) Monocytes % (Manual) Nucleated RBC % Seg Neutrophils # Seg Neutrophils # Man Lymphocytes # (Manual) Monocytes # (Manual) Eosinophils # (Manual) Basophils # (Manual) PT INR POC ABG pH ABG pH POC ABG pCO2 POC ABG pO2 ABG pO2 ABG O2 Saturation ABG Base Excess ABG Hemoglobin Oxyhemoglobin Sodium Potassium Chloride Carbon Dioxide BUN Creatinine Glucose POC Glucose 215 H 220 H Calcium Phosphorus Magnesium Iron TIBC Ferritin Total Bilirubin AST ALT Alkaline Phosphatase Total Creatine Kinase Troponin T C-Reactive Protein Total Protein Albumin Triglycerides HDL Cholesterol Miscellaneous Test Crossmatch 09/20/17 09/21/17 09/21/17 17:45 00:51 04:00 WBC RBC Hgb Hct MCV MCH RDW Plt Count Lymph % (Auto) [place] % (Auto) [place] # Seg Neutrophils % Seg Neuts % (Manual) Lymphocytes % (Manual) Monocytes % (Manual) Nucleated RBC % Seg Neutrophils # Seg Neutrophils # Man Lymphocytes # (Manual) Monocytes # (Manual) Eosinophils # (Manual) Basophils # (Manual) PT INR POC ABG pH ABG pH POC ABG pCO2 POC ABG pO2 ABG pO2 ABG O2 Saturation ABG Base Excess ABG Hemoglobin Oxyhemoglobin Sodium Potassium 3.2 L D Chloride 96.4 L Carbon Dioxide BUN 63 H Creatinine 1.8 H Glucose 204 H POC Glucose 122 H 137 H Calcium 8.3 L Phosphorus 2.10 L D Magnesium 1.50 L Iron TIBC Ferritin Total Bilirubin AST ALT Alkaline Phosphatase Total Creatine Kinase Troponin T C-Reactive Protein Total Protein Albumin Triglycerides HDL Cholesterol Miscellaneous Test Crossmatch 09/21/17 09/21/17 09/21/17 05:45 08:30 11:50 WBC 27.5 H RBC 2.52 L Hgb 7.7 L Hct 22.8 L MCV MCH RDW 19.2 H Plt Count 457 H Lymph % (Auto) [place] % (Auto) [place] # Seg Neutrophils % Seg Neuts % (Manual) Lymphocytes % (Manual) Monocytes % (Manual) Nucleated RBC % Seg Neutrophils # Seg Neutrophils # Man Lymphocytes # (Manual) Monocytes # (Manual) Eosinophils # (Manual) Basophils # (Manual) PT INR POC ABG pH ABG pH POC ABG pCO2 POC ABG pO2 ABG pO2 ABG O2 Saturation ABG Base Excess ABG Hemoglobin Oxyhemoglobin Sodium Potassium Chloride Carbon Dioxide BUN Creatinine Glucose POC Glucose 243 H Calcium Phosphorus Magnesium Iron TIBC Ferritin Total Bilirubin AST ALT Alkaline Phosphatase Total Creatine Kinase Troponin T C-Reactive Protein Total Protein Albumin Triglycerides HDL Cholesterol Miscellaneous Test Crossmatch See Detail 09/21/17 09/21/17 09/22/17 13:03 16:39 00:09 WBC RBC Hgb Hct MCV MCH RDW Plt Count Lymph % (Auto) [place] % (Auto) [place] # Seg Neutrophils % Seg Neuts % (Manual) Lymphocytes % (Manual) Monocytes % (Manual) Nucleated RBC % Seg Neutrophils # Seg Neutrophils # Man Lymphocytes # (Manual) Monocytes # (Manual) Eosinophils # (Manual) Basophils # (Manual) PT INR POC ABG pH ABG pH POC ABG pCO2 POC ABG pO2 ABG pO2 ABG O2 Saturation ABG Base Excess ABG Hemoglobin Oxyhemoglobin Sodium Potassium Chloride Carbon Dioxide BUN Creatinine Glucose POC Glucose 271 H 160 H 191 H Calcium Phosphorus Magnesium Iron TIBC Ferritin Total Bilirubin AST ALT Alkaline Phosphatase Total Creatine Kinase Troponin T C-Reactive Protein Total Protein Albumin Triglycerides HDL Cholesterol Miscellaneous Test Crossmatch 09/22/17 09/22/17 09/22/17 03:37 05:40 07:35 WBC 29.7 H RBC 2.71 L Hgb 8.1 L Hct 24.1 L MCV MCH RDW 19.6 H Plt Count 491 H Lymph % (Auto) [place] % (Auto) [place] # Seg Neutrophils % Seg Neuts % (Manual) 70.5 H Lymphocytes % (Manual) 12.5 L Monocytes % (Manual) 10.0 H Nucleated RBC % 2.0 H Seg Neutrophils # Seg Neutrophils # Man 20.9 H Lymphocytes # (Manual) Monocytes # (Manual) 3.0 H Eosinophils # (Manual) Basophils # (Manual) PT INR POC ABG pH ABG pH POC ABG pCO2 POC ABG pO2 ABG pO2 ABG O2 Saturation ABG Base Excess ABG Hemoglobin Oxyhemoglobin Sodium Potassium 3.0 L Chloride 95.9 L Carbon Dioxide BUN 74 H Creatinine 2.1 H Glucose 126 H POC Glucose 150 H Calcium Phosphorus 2.10 L Magnesium 1.40 L Iron TIBC Ferritin Total Bilirubin AST ALT Alkaline Phosphatase 311 H Total Creatine Kinase Troponin T C-Reactive Protein Total Protein 4.4 L Albumin 2.0 L Triglycerides HDL Cholesterol Miscellaneous Test Crossmatch 09/22/17 09/23/17 09/23/17 12:20 05:02 05:02 WBC 37.5 H RBC 2.54 L Hgb 7.3 L Hct 22.9 L MCV MCH RDW 19.4 H Plt Count 471 H Lymph % (Auto) [place] % (Auto) [place] # Seg Neutrophils % Seg Neuts % (Manual) Lymphocytes % (Manual) 8.0 L Monocytes % (Manual) Nucleated RBC % 1.0 H Seg Neutrophils # Seg Neutrophils # Man 15.0 H Lymphocytes # (Manual) Monocytes # (Manual) 1.9 H Eosinophils # (Manual) Basophils # (Manual) PT INR POC ABG pH ABG pH POC ABG pCO2 POC ABG pO2 ABG pO2 ABG O2 Saturation ABG Base Excess ABG Hemoglobin Oxyhemoglobin Sodium 136 L Potassium 3.0 L Chloride 93.8 L Carbon Dioxide BUN 99 H Creatinine 2.7 H Glucose POC Glucose 106 H Calcium 8.2 L Phosphorus 2.40 L Magnesium Iron TIBC Ferritin Total Bilirubin AST ALT Alkaline Phosphatase Total Creatine Kinase Troponin T C-Reactive Protein Total Protein Albumin Triglycerides HDL Cholesterol Miscellaneous Test Crossmatch 09/23/17 05:39 WBC RBC Hgb Hct MCV MCH RDW Plt Count Lymph % (Auto) [place] % (Auto) [place] # Seg Neutrophils % Seg Neuts % (Manual) Lymphocytes % (Manual) Monocytes % (Manual) Nucleated RBC % Seg Neutrophils # Seg Neutrophils # Man Lymphocytes # (Manual) Monocytes # (Manual) Eosinophils # (Manual) Basophils # (Manual) PT INR POC ABG pH ABG pH POC ABG pCO2 POC ABG pO2 ABG pO2 ABG O2 Saturation ABG Base Excess ABG Hemoglobin Oxyhemoglobin Sodium Potassium Chloride Carbon Dioxide BUN Creatinine Glucose POC Glucose 118 H Calcium Phosphorus Magnesium Iron TIBC Ferritin Total Bilirubin AST ALT Alkaline Phosphatase Total Creatine Kinase Troponin T C-Reactive Protein Total Protein Albumin Triglycerides HDL Cholesterol Miscellaneous Test Crossmatch Chest x-ray: report reviewed, image reviewed (no change)
--- NOTE | 2017-09-23 15:17 | Progress Note ---
Assessment and Plan 62 y.o. F s/p ex lap, transverse colon resection, colostomy creation, and s/p ex lap, abdominal wash out and abdominal wall closure after wound dehiscence 3 weeks s/p ex lap for gastric perforation and sbo. Drainage from midline and MERVIN has increased. The midline inferior portion of incision is now draining more yellow/brown fluid which is concerning for sucus. Although the most recent CT abdomen and pelvis with po contrast did not show a leak from the bowel, the color, and amount of fluid draining from her midline wound is concerning. CT guided drainage of the fluid has been canceled for tomorrow because the concern is for a leak most likely causing the fluid drainage not an abscess or controlled fluid collection. The above information has been discussed with her family via phone. they will be here tomorrow to discuss. As of now they agree to proceed to surgery. Consent will be obtained tomorrow. the patient is currently on levo at 22 since she just finished HD. The goal overnight is to wean the levo and she becomes more stable prior to going to the OR. continue MERVIN to low wall suction ID: antibiotic per ID, off steroids. Prev Gastric perf: Sealed. In light of recent surgery, keep G tube to gravity CKD- HD per renal -OR tomorrow. Please hold off HD until after surgery. She Nutrition: TPN at 75,. DVT proph: scds GI: PPI. - Patient Problems (1) Peritonitis (acute) generalized Current Visit: Yes Status: Acute Subjective Narrative: Pt seen at bedside. Presser restarted since HD was started today. Afebrile overnight. No acute issues overnight. MERVIN 300cc browish murky fluid G tube - 450 bilious Ostomy - 30cc liquid stool, minimal air NG minimal Objective Vital Signs - 12hr 09/23/17 09/23/17 09/23/17 03:30 03:46 03:56 Temperature 99.6 F Pulse Rate 102 H 103 H Pulse Rate [ Apical] Respiratory 23 21 Rate Blood Pressure 125/52 125/52 O2 Sat by Pulse 96 Oximetry 09/23/17 09/23/17 09/23/17 04:00 04:16 04:23 Temperature Pulse Rate 102 H 98 H 103 H Pulse Rate [ 101 H Apical] Respiratory 21 20 Rate Blood Pressure 114/60 114/60 125/52 O2 Sat by Pulse 99 94 Oximetry 09/23/17 09/23/17 09/23/17 04:30 04:46 05:00 Temperature Pulse Rate 103 H 104 H 113 H Pulse Rate [ Apical] Respiratory 15 21 18 Rate Blood Pressure 127/57 127/57 127/57 O2 Sat by Pulse 100 91 73 L Oximetry 09/23/17 09/23/17 09/23/17 05:15 05:31 05:45 Temperature Pulse Rate 108 H 106 H 109 H Pulse Rate [ Apical] Respiratory 16 24 15 Rate Blood Pressure 119/61 119/61 82/42 O2 Sat by Pulse 93 83 L Oximetry 09/23/17 09/23/17 09/23/17 06:00 06:15 06:30 Temperature Pulse Rate 103 H 100 H 104 H Pulse Rate [ Apical] Respiratory 26 H 17 22 Rate Blood Pressure 108/49 108/49 117/49 O2 Sat by Pulse 100 100 100 Oximetry 09/23/17 09/23/17 09/23/17 06:45 07:00 07:15 Temperature Pulse Rate 105 H 101 H 102 H Pulse Rate [ Apical] Respiratory 22 23 24 Rate Blood Pressure 117/49 122/54 122/54 O2 Sat by Pulse 100 100 100 Oximetry 09/23/17 09/23/17 09/23/17 07:30 07:45 08:00 Temperature 97.4 F L Pulse Rate 102 H 94 H 102 H Pulse Rate [ Apical] Respiratory 22 21 23 Rate Blood Pressure 124/50 124/50 128/52 O2 Sat by Pulse 100 100 100 Oximetry 09/23/17 09/23/17 09/23/17 08:05 08:15 08:30 Temperature Pulse Rate 103 H 107 H 102 H Pulse Rate [ Apical] Respiratory 22 21 Rate Blood Pressure 128/52 128/52 127/59 O2 Sat by Pulse 100 97 Oximetry 09/23/17 09/23/17 09/23/17 08:45 09:00 09:15 Temperature Pulse Rate 102 H 102 H 100 H Pulse Rate [ Apical] Respiratory 22 22 21 Rate Blood Pressure 127/59 125/52 125/52 O2 Sat by Pulse Oximetry 09/23/17 09/23/17 09/23/17 09:30 09:45 10:00 Temperature Pulse Rate 106 H 112 H 102 H Pulse Rate [ Apical] Respiratory 22 21 21 Rate Blood Pressure 134/53 134/53 127/49 O2 Sat by Pulse 85 93 Oximetry 09/23/17 09/23/17 09/23/17 10:15 10:30 10:45 Temperature Pulse Rate 103 H 103 H 101 H Pulse Rate [ Apical] Respiratory 22 21 19 Rate Blood Pressure 127/49 119/55 119/55 O2 Sat by Pulse 75 L Oximetry 09/23/17 09/23/17 09/23/17 10:50 11:00 11:05 Temperature 97.4 F L Pulse Rate 95 H 102 H 110 H Pulse Rate [ Apical] Respiratory 18 24 Rate Blood Pressure 112/55 107/58 107/58 O2 Sat by Pulse Oximetry 09/23/17 09/23/17 09/23/17 11:15 11:19 11:30 Temperature Pulse Rate 115 H 114 H 111 H Pulse Rate [ Apical] Respiratory 24 21 Rate Blood Pressure 101/52 101/52 91/52 O2 Sat by Pulse Oximetry 09/23/17 09/23/17 09/23/17 11:34 11:35 11:45 Temperature 97.5 F L Pulse Rate 120 H 122 H Pulse Rate [ Apical] Respiratory 15 Rate Blood Pressure 91/52 91/52 O2 Sat by Pulse Oximetry 09/23/17 09/23/17 09/23/17 11:55 12:00 12:15 Temperature Pulse Rate 112 H 111 H 111 H Pulse Rate [ Apical] Respiratory 24 26 H Rate Blood Pressure 73/43 82/52 97/55 O2 Sat by Pulse 100 Oximetry 09/23/17 09/23/17 09/23/17 12:16 12:30 12:45 Temperature Pulse Rate 107 H 107 H 112 H Pulse Rate [ Apical] Respiratory 33 H 36 H Rate Blood Pressure 97/55 83/48 73/44 O2 Sat by Pulse 98 96 100 Oximetry 09/23/17 09/23/17 09/23/17 13:00 13:02 13:15 Temperature Pulse Rate 112 H 112 H 117 H Pulse Rate [ Apical] Respiratory 23 25 H Rate Blood Pressure 97/46 97/46 99/55 O2 Sat by Pulse 98 96 Oximetry 09/23/17 09/23/17 09/23/17 13:30 13:45 14:00 Temperature Pulse Rate 119 H 117 H 115 H Pulse Rate [ Apical] Respiratory 30 H 29 H Rate Blood Pressure 93/63 93/63 81/28 O2 Sat by Pulse 40 L 66 L Oximetry 09/23/17 09/23/17 14:01 14:15 Temperature Pulse Rate 123 H 112 H Pulse Rate [ Apical] Respiratory 31 H 22 Rate Blood Pressure 82/40 73/41 O2 Sat by Pulse 90 Oximetry - General physical appearance chronically ill, obese - Respiratory normal expansion, other (vent) - Abdomen soft, other (midline incision draining coleman yellow fluid > compared to yesterday. woudn irrigated then repacked. ostomy: stoma violacous. liquid stool in bag minimal air) - Labs 09/23/17 05:02 09/23/17 05:02 Diabetes panel 09/23/17 Range/Units 05:02 Sodium 136 L (137-145) mmol/L Potassium 3.0 L (3.6-5.0) mmol/L Chloride 93.8 L (98-107) mmol/L Carbon Dioxide 22 (22-30) mmol/L BUN 99 H (7-17) mg/dL Creatinine 2.7 H (0.7-1.2) mg/dL Glucose 92 (65-100) mg/dL Calcium 8.2 L (8.4-10.2) mg/dL Calcium panel 09/23/17 Range/Units 05:02 Calcium 8.2 L (8.4-10.2) mg/dL Phosphorus 2.40 L (2.5-4.5) mg/dL Pituitary panel 09/23/17 Range/Units 05:02 Sodium 136 L (137-145) mmol/L Potassium 3.0 L (3.6-5.0) mmol/L Chloride 93.8 L (98-107) mmol/L Carbon Dioxide 22 (22-30) mmol/L BUN 99 H (7-17) mg/dL Creatinine 2.7 H (0.7-1.2) mg/dL Glucose 92 (65-100) mg/dL Calcium 8.2 L (8.4-10.2) mg/dL Adrenal panel 09/23/17 Range/Units 05:02 Sodium 136 L (137-145) mmol/L Potassium 3.0 L (3.6-5.0) mmol/L Chloride 93.8 L (98-107) mmol/L Carbon Dioxide 22 (22-30) mmol/L BUN 99 H (7-17) mg/dL Creatinine 2.7 H (0.7-1.2) mg/dL Glucose 92 (65-100) mg/dL Calcium 8.2 L (8.4-10.2) mg/dL
[2017-09-23] MEDS ORDERED: NACL 0.9% 500 ML 500 ML IV ONE (16:02)
[2017-09-23] MEDS ORDERED: TPN ADULT 1,800 ML IV SCH (20:00)
[2017-09-23] MEDS ORDERED: INTRALIPID 20% 250 ML IV SCH (20:00)
[2017-09-24] MEDS: LEVOPHED 8 MG in NACL 0.9% 250ML 242 ML IV SCH ×3 (04:00→20:34)
[2017-09-24 04:43] LABS: Hematocrit 24.8 % (30.3-42.9); Hemoglobin 8.1 gm/dl (10.1-14.3); Mean Corpuscular HGB Conc 33 % (30-34); Mean Corpuscular Hemoglobin 29 pg (28-32); Mean Corpuscular Volume 90 fl (79-97); Platelet Count 539 K/mm3 (140-440); Red Blood Count 2.76 M/mm3 (3.65-5.03); Red Cell Distribution Width 19.8 % (13.2-15.2)
[2017-09-24 04:46] LABS: White Blood Count 37.8 K/mm3 (4.5-11.0)
[2017-09-24 04:59] LABS: Calcium 8.2 mg/dL (8.4-10.2); Chloride 95.2 mmol/L (98-107); Magnesium 1.9 mg/dL (1.7-2.3); Potassium 3.5 mmol/L (3.6-5.0)
[2017-09-24] MEDS: NOVOLOG SUB-Q SCH ×3 (05:45→18:14)
[2017-09-24 05:58] LABS: Eosinophils % (Manual) 0 % (0.0-4.3)
[2017-09-24 06:00] LABS: Diff Status Complete; Platelet Clumps Few; Platelet Estimate Appears Increased; Poikilocytosis 1+
[2017-09-24 06:01] LABS: Anisocytosis 1+; Polychromasia Few
--- NOTE | 2017-09-24 06:47 | Progress Note ---
Assessment and Plan - Patient Problems (1) ESRD (end stage renal disease) on dialysis Current Visit: Yes Status: Acute Plan to address problem: Continue HD on MWF and Isolated UF on TTS as tolerated. Patient is back on Levophed for hypotension and scheduled to go to OR today for managing the abd wound leak. Will hold off UF today and plan to do HD tomorrow. Patient is on TPN. Monitor lytes. (2) Anemia Current Visit: No Status: Chronic Qualifiers: Anemia type: due to chronic kidney disease Iron deficiency anemia type: I Vitamin B12 deficiency anemia type: V Folate deficiency anemia type: F Bone marrow failure anemia type: B Hemolytic anemia type: H Other causes of anemia: O Chronic kidney disease stage: on chronic dialysis Qualified Code(s ): N18.6 - End stage renal disease; D63.1 - Anemia in chronic kidney disease; Z99.2 - Dependence on renal dialysis Plan to address problem: S/p multiple units of PRBC. Patient continues to drop Hb level. Epogen on dialysis days. Unable to give IV Iron due to high Ferritin level. (3) Hypotension Current Visit: Yes Status: Chronic Qualifiers: Hypotension type: H Trimester: T Plan to address problem: On Levophed. (4) Volume overload Current Visit: Yes Status: Acute Qualifiers: Hypervolemia type: H Plan to address problem: UF as tolerated. (5) Leukocytosis Current Visit: Yes Status: Acute Qualifiers: Leukocytosis type: unspecified Qualified Code(s): D72.829 - Elevated white blood cell count, unspecified (6) Acute respiratory failure with hypoxemia Current Visit: Yes Status: Acute Plan to address problem: On the vent. (7) Sepsis Current Visit: Yes Status: Acute Qualifiers: Sepsis type: S Subjective Date of service: 09/24/17 Principal diagnosis: respiratory failure, sepsis, shock rectal bleeding Interval history: Patient was seen and examined at the bedside. Remain on the vent. Objective - Vital Signs Vital signs: Vital Signs - 12hr 09/23/17 09/23/17 09/23/17 19:01 19:15 19:30 Temperature Pulse Rate 101 H 105 H 101 H Pulse Rate [ 106 H From Monitor] Pulse Rate [ Right] Respiratory 26 H 28 H 26 H Rate Respiratory 26 H Rate [ Generalized] Blood Pressure 105/42 93/41 95/37 O2 Sat by Pulse 96 98 98 Oximetry O2 Sat by Pulse Oximetry [ Assessment] 09/23/17 09/23/17 09/23/17 19:32 19:45 20:01 Temperature Pulse Rate 106 H 108 H 100 H Pulse Rate [ From Monitor] Pulse Rate [ Right] Respiratory 23 24 Rate Respiratory Rate [ Generalized] Blood Pressure 95/37 85/47 98/36 O2 Sat by Pulse 98 99 98 Oximetry O2 Sat by Pulse 98 Oximetry [ Assessment] 09/23/17 09/23/17 09/23/17 20:15 20:30 20:31 Temperature Pulse Rate 107 H 107 H Pulse Rate [ From Monitor] Pulse Rate [ 144 H Right] Respiratory 22 29 H 11 L Rate Respiratory Rate [ Generalized] Blood Pressure 98/43 54/33 54/33 O2 Sat by Pulse 98 99 96 Oximetry O2 Sat by Pulse Oximetry [ Assessment] 09/23/17 09/23/17 09/23/17 20:45 21:00 21:10 Temperature Pulse Rate 106 H 103 H 103 H Pulse Rate [ From Monitor] Pulse Rate [ Right] Respiratory 29 H 24 26 H Rate Respiratory Rate [ Generalized] Blood Pressure 110/40 106/43 O2 Sat by Pulse 99 98 99 Oximetry O2 Sat by Pulse Oximetry [ Assessment] 09/23/17 09/23/17 09/23/17 21:15 21:31 21:43 Temperature 97.5 F L Pulse Rate 102 H 111 H Pulse Rate [ From Monitor] Pulse Rate [ 108 H Right] Respiratory 26 H 24 16 Rate Respiratory Rate [ Generalized] Blood Pressure 103/41 103/40 54/33 O2 Sat by Pulse 98 98 Oximetry O2 Sat by Pulse Oximetry [ Assessment] 09/23/17 09/23/17 09/23/17 21:45 22:00 22:15 Temperature Pulse Rate 105 H 100 H 105 H Pulse Rate [ From Monitor] Pulse Rate [ Right] Respiratory 25 H 26 H 23 Rate Respiratory Rate [ Generalized] Blood Pressure 112/39 120/45 123/39 O2 Sat by Pulse 97 99 97 Oximetry O2 Sat by Pulse Oximetry [ Assessment] 09/23/17 09/23/17 09/23/17 22:20 22:31 22:45 Temperature Pulse Rate 104 H 104 H 109 H Pulse Rate [ From Monitor] Pulse Rate [ Right] Respiratory 27 H 17 Rate Respiratory 26 H Rate [ Generalized] Blood Pressure 120/35 120/35 O2 Sat by Pulse 98 96 Oximetry O2 Sat by Pulse Oximetry [ Assessment] 09/23/17 09/23/17 09/23/17 23:00 23:15 23:30 Temperature Pulse Rate 97 H 98 H 106 H Pulse Rate [ From Monitor] Pulse Rate [ Right] Respiratory 21 22 19 Rate Respiratory Rate [ Generalized] Blood Pressure 109/31 109/31 91/32 O2 Sat by Pulse 97 97 97 Oximetry O2 Sat by Pulse Oximetry [ Assessment] 09/23/17 09/23/17 09/24/17 23:45 23:55 00:00 Temperature 99.9 F H Pulse Rate 108 H 106 H 101 H Pulse Rate [ From Monitor] Pulse Rate [ Right] Respiratory 27 H 18 22 Rate Respiratory Rate [ Generalized] Blood Pressure 100/71 96/44 O2 Sat by Pulse 98 99 98 Oximetry O2 Sat by Pulse Oximetry [ Assessment] 09/24/17 09/24/17 09/24/17 00:15 00:24 00:31 Temperature Pulse Rate 106 H 96 H 95 H Pulse Rate [ From Monitor] Pulse Rate [ Right] Respiratory 13 25 H Rate Respiratory Rate [ Generalized] Blood Pressure 96/44 135/65 108/38 O2 Sat by Pulse 94 98 99 Oximetry O2 Sat by Pulse Oximetry [ Assessment] 09/24/17 09/24/17 09/24/17 00:45 01:01 01:15 Temperature Pulse Rate 109 H 96 H 94 H Pulse Rate [ From Monitor] Pulse Rate [ Right] Respiratory 24 27 H 25 H Rate Respiratory Rate [ Generalized] Blood Pressure 114/34 90/28 93/34 O2 Sat by Pulse 98 98 99 Oximetry O2 Sat by Pulse Oximetry [ Assessment] 09/24/17 09/24/17 09/24/17 01:30 01:45 02:01 Temperature Pulse Rate 95 H 112 H 103 H Pulse Rate [ From Monitor] Pulse Rate [ Right] Respiratory 25 H 26 H 25 H Rate Respiratory Rate [ Generalized] Blood Pressure 101/35 117/36 87/28 O2 Sat by Pulse 99 97 99 Oximetry O2 Sat by Pulse Oximetry [ Assessment] 09/24/17 09/24/17 09/24/17 02:15 02:19 02:31 Temperature Pulse Rate 111 H 96 H 112 H Pulse Rate [ From Monitor] Pulse Rate [ Right] Respiratory 22 23 19 Rate Respiratory Rate [ Generalized] Blood Pressure 144/52 123/40 O2 Sat by Pulse 99 98 99 Oximetry O2 Sat by Pulse Oximetry [ Assessment] 09/24/17 09/24/17 09/24/17 02:45 03:01 03:15 Temperature Pulse Rate 96 H 109 H 109 H Pulse Rate [ From Monitor] Pulse Rate [ Right] Respiratory 21 23 25 H Rate Respiratory Rate [ Generalized] Blood Pressure 111/30 108/36 106/42 O2 Sat by Pulse 85 100 99 Oximetry O2 Sat by Pulse Oximetry [ Assessment] 09/24/17 09/24/17 09/24/17 03:30 03:45 04:00 Temperature 99.8 F H Pulse Rate 110 H 104 H 101 H Pulse Rate [ From Monitor] Pulse Rate [ 108 H Right] Respiratory 27 H 28 H 28 H Rate Respiratory Rate [ Generalized] Blood Pressure 107/53 104/60 91/36 O2 Sat by Pulse 97 99 98 Oximetry O2 Sat by Pulse Oximetry [ Assessment] 09/24/17 09/24/17 09/24/17 04:15 04:25 04:30 Temperature Pulse Rate 110 H 108 H 114 H Pulse Rate [ From Monitor] Pulse Rate [ Right] Respiratory 21 28 H Rate Respiratory Rate [ Generalized] Blood Pressure 117/52 91/36 117/52 O2 Sat by Pulse 98 100 97 Oximetry O2 Sat by Pulse Oximetry [ Assessment] 09/24/17 09/24/17 09/24/17 04:45 05:00 05:05 Temperature Pulse Rate 112 H 102 H Pulse Rate [ From Monitor] Pulse Rate [ Right] Respiratory 30 H 30 H 27 H Rate Respiratory Rate [ Generalized] Blood Pressure 121/61 125/55 O2 Sat by Pulse 97 97 98 Oximetry O2 Sat by Pulse Oximetry [ Assessment] 09/24/17 09/24/17 09/24/17 05:15 05:30 05:45 Temperature Pulse Rate 111 H 115 H 114 H Pulse Rate [ From Monitor] Pulse Rate [ Right] Respiratory 31 H 28 H 15 Rate Respiratory Rate [ Generalized] Blood Pressure 121/61 121/61 113/43 O2 Sat by Pulse 97 96 96 Oximetry O2 Sat by Pulse Oximetry [ Assessment] 09/24/17 09/24/17 06:01 06:15 Temperature Pulse Rate 112 H 118 H Pulse Rate [ From Monitor] Pulse Rate [ Right] Respiratory 26 H 30 H Rate Respiratory Rate [ Generalized] Blood Pressure 110/50 109/51 O2 Sat by Pulse 97 92 Oximetry O2 Sat by Pulse Oximetry [ Assessment] - General Appearance General appearance: well-developed, appears stated age, obese, other (On the vent, FiO2 25%) EENT: ATNC, PERRL Neck: supple Respiratory: Present: Clear to Ascultation Cardiology: regular, S1S2, no murmurs Gastrointestinal: normoactive bowel sounds, obese, other (dressing, PEG tube, MERVIN drain and ostomy noted) Integumentary: no rash Neurologic: other (non-verbal, not following any command) Musculoskeletal: other (1to2+ edema of both LEs noted) - Lab 09/24/17 04:00 09/24/17 04:00 Most recent lab results ABG pH 7.323 pH Units (7.350-7.450) L 09/09/17 Unknown ABG pCO2 41.1 mm Hg 09/09/17 Unknown ABG pO2 94.1 mm Hg (80.0-90.0) H 09/09/17 Unknown ABG HCO3 20.9 mmol/L (20.0-26.0) 09/09/17 Unknown ABG O2 Saturation 97.2 % (95.0-99.0) 09/09/17 Unknown Calcium 8.2 mg/dL (8.4-10.2) L 09/24/17 04:00 Phosphorus 2.00 mg/dL (2.5-4.5) L 09/24/17 04:00 Magnesium 1.90 mg/dL (1.7-2.3) 09/24/17 04:00
--- NOTE | 2017-09-24 07:33 | Vascular Lab Report ---
LOWER EXTREMITY VENOUS DUPLEX: REASON FOR EXAM: Swelling of the lower extremities. COMMENTS ON THE RIGHT: All veins visualized are freely compressible without evidence of internal echogenicity. Flow is spontaneous and phasic throughout. COMMENTS ON THE LEFT: All veins visualized are freely compressible without evidence of internal echogenicity. Flow is spontaneous and phasic throughout. IMPRESSION: No evidence of acute or chronic deep venous thrombosis in either lower extremity.
--- NOTE | 2017-09-24 08:05 | XRay Report ---
AP CHEST :09/24/17 CLINICAL: Intubated.Follow up respiratory failure. COMPARISON:09/11/17 FINDINGS: The endotracheal tube is in satisfactory position. The feeding tube is satisfactory. Right central venous catheter tip is in the SVC. Stable cardiomegaly. Normal pulmonary vessels. The lungs are normally expanded and clear. No pneumothorax. IMPRESSION: Cardiomegaly but no CHF. No pneumonia.
--- NOTE | 2017-09-24 08:45 | Anesthesia Consultation ---
Anesthesia Consult and Med Hx Date of service: 09/24/17 - Airway Mallampati Class: Class IV (unable to access, trach in situ) - Pulmonary Exam CTA: Yes - Cardiac Exam Cardiac Exam: RRR - Pre-Operative Health Status ASA Pre-Surgery Classification: ASA4 Proposed Anesthetic Plan: General - Pulmonary Hx Smoking: No Hx Asthma: No Hx Respiratory Symptoms: No SOB: No COPD: Yes (Acute Respiratory Failure, s/p trach) Hx Pneumonia: No Hx Sleep Apnea: Yes - Cardiovascular System Hx Hypertension: No (hypotensive 09/24/17, Levophed 26mcg/min) Hx Coronary Artery Disease: No Hx Heart Attack/AMI: No Hx Angina: No Hx Percutaneous Transluminal Coronary Angioplasty (PTCA): No Hx Cardia Arrhythmia: No Hx Pacemaker: No Hx Internal Defibrillator: No Hx Valvular Heart Disease: No Hx Heart Murmur: No Hx Peripheral Vascular Disease: No - Central Nervous System Hx Neuromuscular Disorder: Yes (wheelchair bound, cannot move right leg, hypersensitivity in right hand) Hx Seizures: No CVA: No Hx Back Pain: Yes (C4-6 disc disease s/p ACDF and posterior fusion ) Hx Psychiatric Problems: No - Gastrointestinal Hx Ulcer: Yes Hx Gastroesophageal Reflux Disease: No - Endocrine Hx Renal Disease: Yes (MWF dialysis, dialysis held 09/23/17) Hx End Stage Renal Disease: Yes Hx Cirrhosis: No Hx Liver Disease: No Hx Insulin Dependent Diabetes: Yes Hx Non-Insulin Dependent Diabetes: No Hx Thyroid Disease: No - Hematic Hx Anemia: Yes Hx Sickle Cell Disease: No - Other Systems Hx Alcohol Use: Yes (wine 2 x week) Hx Substance Use: No Hx Cancer: No Hx Obesity: Yes (MORBID, BMI > 40) - Additional Comments Anesthesia Medical History Comments: Sepsis -> SIRS, MRSA and Kristine Albicans, Bilateral LE swelling -> vascular ultrasound shows no thrombosis and all vascular patent. Echo this admission was essentially normal. Spoke with family and they are aware of severity of situation and that surgery is life saving but also life threatening. Last blood transfusion 09/15/17, 2 units blood on hold for OR 09/24/17
--- NOTE | 2017-09-24 08:48 | Anesthesia Day of Surgery ---
Anesthesia Day of Surgery - Day of Surgery Patient Examined: Yes Patient H&P Reviewed: Yes Patient is NPO: Yes
--- NOTE | 2017-09-24 09:43 | Progress Note ---
Assessment and Plan Assessment: 1) Sepsis with septic shock: still leukocytosis, needing more pressors; ? colonic perf ? leak. Restared on IV solumedrol 09/13 2) Initial Bowel obstruction / suspect ?gastric perforation ? peritonitis -S/P Exlap, G-tube placement, EGD, abdominal washout and removal of PD -OR findings - bowel obstruction due to entanglement of PD cath, abscess cavity in LUQ and ? suspect perforation of unclear location 3) Intiial CA-UTI: chronic ivan exchanged every 4 weeks and ureteral stents in place which are exchanged every 6 months 4) Paraplegia 5) ESRD on PD - now on HD 6) Recent pancreatitis 7) Penicillin allergy-has taken keflex w/o problems 8) Presumed Surgical wound infection / dehiscence ? 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 11) Anemia- severe- Hg 6.7 today 12) Colonic perforation -S/P exlap, transverse colectomy, right sided colostomy and wash out on 09/15 -?presumed leak -surgical wound + Kristine and GNRs Plan: -to the OR today due to concern for a leak -start cefepime, flagyl and fluconazole (previous agents - meropenem/micafungin ) -consider low dose steroids - it seems she has adrenal insuficiency -prognosis very poor -Discussed with ICU staff and Dr Latif Thank you Dr Chen for your consultation, will follow up with you. Ramya Lang MD Infectious Diseases Specialist [facility] ([facility] M [phone] O [phone] Subjective Date of service: 09/24/17 Principal diagnosis: respiratory failure, sepsis, shock rectal bleeding Interval history: Pt remains on the vent still levophed at 26 mcg, on TPN, fentanyl, tmax 99.9, Microbiology: Blood cultures: 08/08 neg 08/12 neg 08/16 neg 08/20 neg / neg 09/06 neg 09/12 ngtd Urine cultures: 08/08 10-100K skin grace Respiratory cultures: 08/30 tracheal asp MRSA Wound cultures: 08/26 Staph aureus and Kristine 08/28 MRSA, E faecalis, Kristine albicans 09/20 GNRs and Kristine Stool cultures: Other: 08/08 peritoneal fluid + BUDGET SPECIALIST/Diphteroids Current Antimicrobials: Previous Antimicrobials: 08/10 levaquin 08/16 vancomycin 08/13 meropenem 08/16 fluconazole Micafungin 08/29 meropenem 08/29 zyvox 09/03 fluconazole 09/03 dapto 09/10 meropenem 09/09-09/22 micafungin 09/11-09/21 Objective - Exam Narrative Exam: General appearance: alert this am on vent via trach Eyes: anicteric sclerae, moist conjunctivae; no lid-lag; PERRLA HENT: Atraumatic; NGT Neck: Trach in place Lungs: coarse BS moreno CV: RRR Abdomen: soft, midline surgical wound with sutures +marked yellowish drainage. Gtube. colostomy Extremities: + peripheral edema + leg ulcer no drainage Skin: right groin old fem line wound no erythema, no drainage Psych: sedated. Neuro: sedated Lines: right IJ vas cath / Right IJ Nair 08/16 - Constitutional Vitals: Vital Signs Temp Pulse Resp BP Pulse Ox 99.5 F 113 H 23 143/62 97 09/24/17 08:00 09/24/17 09:15 09/24/17 09:15 09/24/17 09:15 09/24/17 09:15 Temperature -Last 24 Hours Temperature 99.5 F Temperature 99.8 F Temperature 99.9 F Temperature 99.9 F Temperature 97.5 F Temperature 98.0 F Temperature 97.5 F Temperature 97.4 F - Labs CBC & Chem 7: 09/24/17 04:00 09/24/17 04:00 Labs: Abnormal lab results 09/21/17 09/23/17 09/23/17 Range/Units 11:50 11:21 18:19 WBC (4.5-11.0) K/mm3 RBC (3.65-5.03) M/mm3 Hgb (10.1-14.3) gm/dl Hct (30.3-42.9) % RDW (13.2-15.2) % Plt Count (140-440) K/mm3 Lymphocytes % (Manual) (13.4-35.0) % Nucleated RBC % (0.0-0.9) % Seg Neutrophils # Man (1.8-7.7) K/mm3 Monocytes # (Manual) (0.0-0.8) K/mm3 Basophils # (Manual) (0.0-0.1) K/mm3 Potassium (3.6-5.0) mmol/L Chloride (98-107) mmol/L BUN (7-17) mg/dL Creatinine (0.7-1.2) mg/dL Glucose (65-100) mg/dL POC Glucose 130 H 189 H (70-105) Calcium (8.4-10.2) mg/dL Phosphorus (2.5-4.5) mg/dL Crossmatch See Detail 09/23/17 09/24/17 09/24/17 Range/Units 23:55 04:00 04:00 WBC 37.8 H (4.5-11.0) K/mm3 RBC 2.76 L (3.65-5.03) M/mm3 Hgb 8.1 L (10.1-14.3) gm/dl Hct 24.8 L (30.3-42.9) % RDW 19.8 H (13.2-15.2) % Plt Count 539 H (140-440) K/mm3 Lymphocytes % (Manual) 4.0 L (13.4-35.0) % Nucleated RBC % 6.0 H (0.0-0.9) % Seg Neutrophils # Man 19.3 H (1.8-7.7) K/mm3 Monocytes # (Manual) 1.5 H (0.0-0.8) K/mm3 Basophils # (Manual) 0.4 H (0.0-0.1) K/mm3 Potassium 3.5 L (3.6-5.0) mmol/L Chloride 95.2 L (98-107) mmol/L BUN 67 H (7-17) mg/dL Creatinine 1.9 H (0.7-1.2) mg/dL Glucose 140 H (65-100) mg/dL POC Glucose 120 H (70-105) Calcium 8.2 L (8.4-10.2) mg/dL Phosphorus 2.00 L (2.5-4.5) mg/dL Crossmatch 09/24/17 Range/Units 05:33 WBC (4.5-11.0) K/mm3 RBC (3.65-5.03) M/mm3 Hgb (10.1-14.3) gm/dl Hct (30.3-42.9) % RDW (13.2-15.2) % Plt Count (140-440) K/mm3 Lymphocytes % (Manual) (13.4-35.0) % Nucleated RBC % (0.0-0.9) % Seg Neutrophils # Man (1.8-7.7) K/mm3 Monocytes # (Manual) (0.0-0.8) K/mm3 Basophils # (Manual) (0.0-0.1) K/mm3 Potassium (3.6-5.0) mmol/L Chloride (98-107) mmol/L BUN (7-17) mg/dL Creatinine (0.7-1.2) mg/dL Glucose (65-100) mg/dL POC Glucose 178 H (70-105) Calcium (8.4-10.2) mg/dL Phosphorus (2.5-4.5) mg/dL Crossmatch
[2017-09-24] MEDS: DIFLUCAN 200 MG/100 ML BAG IV SCH (10:30)
[2017-09-24] MEDS ORDERED: NACL 0.9% 1000 ML 1,000 ML IV SCH (10:30)
[2017-09-24] MEDS: PROTONIX IV SCH (10:30)
[2017-09-24] MEDS: LEVEMIR SUB-Q SCH (10:30)
[2017-09-24] MEDS ORDERED: ZEMURON IV ONE ×2 (11:50→13:18)
[2017-09-24] MEDS ORDERED: SUBLIMAZE ONE ×2 (11:51→13:16)
[2017-09-24] MEDS: MAXIPIME/NS 2 GM/100 ML 2 GM/100 ML BAG IV SCH (12:15)
--- NOTE | 2017-09-24 12:16 | Progress Note ---
Assessment and Plan Assessment and plan: Septic shock. Patient with previous abdominal abscess and CAUTI. ID following and started cefepime, flagyl and fluconazole (previous agents - meropenem/ micafungin for Presumed Surgical wound infection / dehiscence ? wound + MRSA, E faecalis and Kristine albicans) Pt. may now have ? colonic perf ? leak. Worsening leukocytosis Acute hypoxic respiratory failure. Patient remains on mechanical ventilation postoperatively. Continue weaning per pulmonary MRSA in tracheal aspirate ? colonizer versus VAP Peritonitis/intra-abdominal abscess/ Initial Bowel obstruction (related to likely gastric perforation). Pt. for IR drainage of peritoneal fluid 09/2409/15/17: Ex lap, transverse colectomy, R colostomy and abdominal wash out 08/31: Ex lap with abdominal wash out and closure 08/17: Ex lap with G tube placement, EGD, abdominal wash out and removal of PD Cath (OR findings - bowel obstruction due to entanglement of PD cath, abscess cavity in LUQ and ? suspect perforation of unclear location) Cont. TPN End-stage renal disease -patient previously with peritoneal dialysis that has been discontinued -Hemodialysis per nephrology. -needs perm cath when improved Ulcerative esophagitis/small gastric ulcer. Patient status post EGD. s/p multiple transfusions -Patient had CTA of abdomen and pelvis that revealed no active bleeding, CT Abdomen repeated 09/06, no acute findings CAUTI. Completed antibiotics Protein calorie malnutrition. -Continue TPN. Leukocytosis. -worse- - ID following -Follow up CBC Recent pancreatitis. resolved Penicillin allergy-has taken keflex w/o problems in past NSVT cardiology believes that etiology was secondary to Levophed which now has been weaned off History of cervical surgery and postoperative wheelchair bound since then - pain control DVT prophylaxis Disposition - Prognosis is extremely guarded. The high probability of a clinically significant, sudden or life threatening deterioration of the [hemodynamic, respiratory] system(s) required my full and direct attention, intervention and personal management. The aggregate critical care time was [32] minutes. This time is in addition to time spent performing reported procedures but includes the following: [x] Data Review and interpretation [x] Patient assessment and monitoring of vital signs [x] Documentation [x] Medication orders and management History Interval history: Patient is back on pressors of Levophed. Hospitalist Physical - Constitutional Vitals: Temp Pulse Resp BP Pulse Ox 99.5 F 113 H 23 143/62 97 10/31/17 08:00 09/24/17 09:15 09/24/17 09:15 09/24/17 09:15 09/24/17 09:15 General appearance: Present: mild distress - EENT Eyes: Present: PERRL, EOM intact ENT: hearing intact, clear oral mucosa, dentition normal - Neck Neck: Present: supple, normal ROM - Respiratory Respiratory effort: normal Respiratory: bilateral: diminished, rhonchi - Cardiovascular Rhythm: regular Heart Sounds: Present: S1 & S2. Absent: gallop, rub - Extremities Extremities: no ischemia, No edema, Full ROM - Abdominal General gastrointestinal: soft, non-tender, non-distended, normal bowel sounds - Integumentary Integumentary: Present: clear, warm, dry - Neurologic Neurologic: CNII-XII intact, moves all extremities Results - Labs CBC & Chem 7: 09/24/17 04:00 09/24/17 04:00 Labs: Laboratory Last Values WBC 37.8 K/mm3 (4.5-11.0) H 09/24/17 04:00 RBC 2.76 M/mm3 (3.65-5.03) L 09/24/17 04:00 Hgb 8.1 gm/dl (10.1-14.3) L 09/24/17 04:00 Hct 24.8 % (30.3-42.9) L 09/24/17 04:00 MCV 90 fl (79-97) 09/24/17 04:00 MCH 29 pg (28-32) 09/24/17 04:00 MCHC 33 % (30-34) 09/24/17 04:00 RDW 19.8 % (13.2-15.2) H 09/24/17 04:00 Plt Count 539 K/mm3 (140-440) H 09/24/17 04:00 Lymph % (Auto) Patient Representative 08/19/17 07:37 [place] % (Auto) Patient Representative 09/24/17 04:00 Eos % (Auto) Patient Representative 08/19/17 07:37 Baso % (Auto) Patient Representative 08/19/17 07:37 Lymph # Patient Representative 08/19/17 07:37 [place] # Patient Representative 08/19/17 07:37 Eos # Patient Representative 08/19/17 07:37 Baso # Patient Representative 08/19/17 07:37 Add Manual Diff Complete 09/24/17 04:00 Total Counted 100 09/24/17 04:00 Seg Neutrophils % Patient Representative 09/08/17 04:05 Seg Neuts % (Manual) 51.0 % (40.0-70.0) 09/24/17 04:00 Band Neutrophils % 26.0 % 09/24/17 04:00 Lymphocytes % (Manual) 4.0 % (13.4-35.0) L 09/24/17 04:00 Reactive Lymphs % (Man) 1.0 % 09/24/17 04:00 Monocytes % (Manual) 4.0 % (0.0-7.3) 09/24/17 04:00 Eosinophils % (Manual) 0 % (0.0-4.3) 09/24/17 04:00 Basophils % (Manual) 1.0 % (0.0-1.8) 09/24/17 04:00 Metamyelocytes % 3.0 % 09/24/17 04:00 Myelocytes % 3.0 % 09/24/17 04:00 Promyelocytes % 4.0 % 09/24/17 04:00 Blast Cells % 3.0 % 09/24/17 04:00 Nucleated RBC % 6.0 % (0.0-0.9) H 09/24/17 04:00 Seg Neutrophils # Patient Representative 08/19/17 07:37 Seg Neutrophils # Man 19.3 K/mm3 (1.8-7.7) H 09/24/17 04:00 Band Neutrophils # 9.8 K/mm3 09/24/17 04:00 Lymphocytes # (Manual) 1.5 K/mm3 (1.2-5.4) 09/24/17 04:00 Abs React Lymphs (Man) 0.4 K/mm3 09/24/17 04:00 Monocytes # (Manual) 1.5 K/mm3 (0.0-0.8) H 09/24/17 04:00 Eosinophils # (Manual) 0.0 K/mm3 (0.0-0.4) 09/24/17 04:00 Basophils # (Manual) 0.4 K/mm3 (0.0-0.1) H 09/24/17 04:00 Metamyelocytes # 1.1 K/mm3 09/24/17 04:00 Myelocytes # 1.1 K/mm3 09/24/17 04:00 Promyelocytes # 1.5 K/mm3 09/24/17 04:00 Blast Cells # 0.4 K/mm3 09/24/17 04:00 Pathologist Review Not Reportable 08/30/17 05:20 WBC Morphology Not Reportable 09/24/17 04:00 Hypersegmented Neuts Not Reportable 09/24/17 04:00 Hyposegmented Neuts Not Reportable 09/24/17 04:00 Hypogranular Neuts Not Reportable 09/24/17 04:00 Smudge Cells Not Reportable 09/24/17 04:00 Toxic Granulation Not Reportable 09/24/17 04:00 Toxic Vacuolation Not Reportable 09/24/17 04:00 Dohle Bodies Not Reportable 09/24/17 04:00 Pelger-Huet Anomaly Not Reportable 09/24/17 04:00 Ariel Rods Not Reportable 09/24/17 04:00 Platelet Estimate Appears increased 09/24/17 04:00 Clumped Platelets Few 09/24/17 04:00 Plt Clumps, EDTA Not Reportable 09/24/17 04:00 Large Platelets Not Reportable 09/24/17 04:00 Giant Platelets Not Reportable 09/24/17 04:00 Platelet Satelliting Not Reportable 09/24/17 04:00 Plt Morphology Comment Not Reportable 09/24/17 04:00 RBC Morphology Not Reportable 09/24/17 04:00 Dimorphic RBCs Not Reportable 09/24/17 04:00 Polychromasia Few 09/24/17 04:00 Hypochromasia Not Reportable 09/24/17 04:00 Poikilocytosis 1+ 09/24/17 04:00 Anisocytosis 1+ 09/24/17 04:00 Microcytosis Not Reportable 09/24/17 04:00 Macrocytosis Not Reportable 09/24/17 04:00 Spherocytes Not Reportable 09/24/17 04:00 Pappenheimer Bodies Not Reportable 09/24/17 04:00 Sickle Cells Not Reportable 09/24/17 04:00 Target Cells Not Reportable 09/24/17 04:00 Tear Drop Cells Not Reportable 09/24/17 04:00 Ovalocytes Not Reportable 09/24/17 04:00 Stomatocytes Rare 09/12/17 05:25 Helmet Cells Not Reportable 09/24/17 04:00 Vera-[place] Bodies Not Reportable 09/24/17 04:00 [place] Rings Not Reportable 09/24/17 04:00 Yusuf Cells Not Reportable 09/24/17 04:00 Bite Cells Not Reportable 09/24/17 04:00 Crenated Cell Not Reportable 09/24/17 04:00 Elliptocytes Not Reportable 09/24/17 04:00 Acanthocytes (Spur) Not Reportable 09/24/17 04:00 Rouleaux Not Reportable 09/24/17 04:00 Hemoglobin C Crystals Not Reportable 09/24/17 04:00 Schistocytes Not Reportable 09/24/17 04:00 Malaria parasites Not Reportable 09/24/17 04:00 Jovanni Bodies Not Reportable 09/24/17 04:00 Hem Pathologist Commnt No 09/24/17 04:00 PT 14.9 Sec. (12.2-14.9) 09/21/17 07:00 INR 1.11 (0.87-1.13) 09/21/17 07:00 APTT 28.7 Sec. (24.2-36.6) 08/31/17 18:15 POC ABG pH 7.347 (7.35-7.45) L 09/13/17 11:36 ABG pH 7.323 pH Units (7.350-7.450) L 09/09/17 Unknown POC ABG pCO2 34.3 (35-45) L 09/13/17 11:36 ABG pCO2 41.1 mm Hg 09/09/17 Unknown POC ABG pO2 134 (80-105) H 09/13/17 11:36 ABG pO2 94.1 mm Hg (80.0-90.0) H 09/09/17 Unknown POC ABG HCO3 18.8 09/13/17 11:36 ABG HCO3 20.9 mmol/L (20.0-26.0) 09/09/17 Unknown POC ABG Total CO2 20 09/13/17 11:36 POC ABG O2 Sat 99 09/13/17 11:36 ABG O2 Saturation 97.2 % (95.0-99.0) 09/09/17 Unknown ABG O2 Content 10.9 (0.0-44) 09/09/17 Unknown POC ABG Base Excess -7 09/13/17 11:36 ABG Base Excess -4.8 mmol/L (-2.0-3.0) L 09/09/17 Unknown ABG Hemoglobin 8.0 gm/dl (12.0-16.0) L 09/09/17 Unknown ABG Carboxyhemoglobin 2.0 % (0.0-5.0) 09/09/17 Unknown ABG Methemoglobin 0.3 % (0.0-1.5) 09/09/17 Unknown VBG pH 7.462 (7.320-7.420) H 08/08/17 14:52 Oxyhemoglobin 94.9 % (95.0-99.0) L 09/09/17 Unknown FiO2 30 % 09/13/17 11:36 Sodium 137 mmol/L (137-145) 09/24/17 04:00 Potassium 3.5 mmol/L (3.6-5.0) L 09/24/17 04:00 Chloride 95.2 mmol/L (98-107) L 09/24/17 04:00 Carbon Dioxide 24 mmol/L (22-30) 09/24/17 04:00 Anion Gap 21 mmol/L 09/24/17 04:00 BUN 67 mg/dL (7-17) H 09/24/17 04:00 Creatinine 1.9 mg/dL (0.7-1.2) H 09/24/17 04:00 Estimated GFR 33 ml/min 09/24/17 04:00 BUN/Creatinine Ratio 35 % 09/24/17 04:00 Glucose 140 mg/dL (65-100) H 09/24/17 04:00 POC Glucose 178 (70-105) H 09/24/17 05:33 Lactic Acid 1.60 mmol/L (0.7-2.0) 08/17/17 11:20 Calcium 8.2 mg/dL (8.4-10.2) L 09/24/17 04:00 Phosphorus 2.00 mg/dL (2.5-4.5) L 09/24/17 04:00 Magnesium 1.90 mg/dL (1.7-2.3) 09/24/17 04:00 Iron 22 ug/dL (37-170) L 09/12/17 05:25 TIBC 81 mcg/dL (250-450) L 09/12/17 05:25 Ferritin > 2000.0 ng/mL (13.0-400.0) H 09/12/17 05:25 Total Bilirubin 0.70 mg/dL (0.1-1.2) 09/22/17 03:37 Direct Bilirubin 0.2 mg/dL (0-0.2) 08/08/17 14:11 Indirect Bilirubin 0.3 mg/dL 08/08/17 14:11 AST 33 units/L (5-40) 09/22/17 03:37 ALT 16 units/L (7-56) 09/22/17 03:37 Alkaline Phosphatase 311 units/L (35-129) H 09/22/17 03:37 Ammonia 25.0 umol/L (25-60) 08/08/17 14:52 Total Creatine Kinase 20 units/L (30-135) L 09/16/17 05:30 Troponin T 0.132 ng/mL (0.00-0.029) H* 08/09/17 13:25 C-Reactive Protein 2.80 mg/dL (0.00-1.30) H 09/06/17 05:30 NT-Pro-B Natriuret Pep 6156 pg/mL (0-900) H 08/08/17 14:11 Total Protein 4.4 g/dL (6.3-8.2) L 09/22/17 03:37 Albumin 2.0 g/dL (3.9-5) L 09/22/17 03:37 Albumin/Globulin Ratio 0.8 % 09/22/17 03:37 Triglycerides 180 mg/dL (2-149) H 09/03/17 04:00 Cholesterol 91 mg/dL (50-199) 08/08/17 21:23 LDL Cholesterol Direct 53 mg/dL (50-130) 08/08/17 21:23 HDL Cholesterol 26 mg/dL (40-59) L 08/08/17 21:23 Cholesterol/HDL Ratio 3.50 % 08/08/17 21:23 Amylase 45 units/L (27-131) 08/16/17 09:50 Lipase 34 units/L (13-60) 08/16/17 09:50 TSH 6.580 mlU/mL (0.270-4.200) H 08/08/17 14:22 Free T4 1.46 ng/dL (0.76-1.46) 08/08/17 14: Total Cortisol 28.3 mcg/dL () 09/13/17 12:50 Urine Color Yellow (Yellow) 08/08/17 20:15 Urine Turbidity Turbid (Clear) 08/08/17 20:15 Urine pH 8.0 (5.0-7.0) H 08/08/17 20:15 Ur Specific [place] 1.015 (1.003-1.030) 08/08/17 20:15 Urine Protein 100 mg/dl mg/dL (Negative) 08/08/17 20:15 Urine Glucose (UA) Neg mg/dL (Negative) 08/08/17 20:15 Urine Ketones Neg mg/dL (Negative) 08/08/17 20:15 Urine Blood Mod (Negative) 08/08/17 20:15 Urine Nitrite Neg (Negative) 08/08/17 20:15 Urine Bilirubin Neg (Negative) 08/08/17 20:15 Urine Urobilinogen < 2.0 mg/dL (<2.0) 08/08/17 20:15 Ur Leukocyte Esterase Lg (Negative) 08/08/17 20:15 Urine WBC (Auto) 24.0 /HPF (0.0-6.0) H 08/08/17 20:15 Urine RBC (Auto) 3.0 /HPF (0.0-6.0) 08/08/17 20:15 U Epithel Cells (Auto) 3.0 /HPF (0-13.0) 08/08/17 20:15 Urine Bacteria (Auto) 4+ /HPF (Negative) 08/08/17 20:15 Urine Mucus 3+ /HPF 08/08/17 20:15 Fluid Type Peritoneal 08/08/17 18:18 Fluid Color Straw 08/08/17 18:18 Fluid Appearance Clear 08/08/17 18:18 Fluid pH 7.74 08/08/17 18:18 Fluid WBC 4 /mm3 08/08/17 18:18 Fluid RBC 1 /mm3 08/08/17 18:18 Fluid Seg Neutrophils 12 % 08/08/17 18:18 Fluid Lymphocytes 0 % 08/08/17 18:18 Fluid Reactive Lymphs 0 % 08/08/17 18:18 Fluid Monocytes 1 % 08/08/17 18:18 Fluid Eosinophils 0 % 08/08/17 18:18 Fluid Basophils 0 % 08/08/17 18:18 Fluid Glucose 315 mg/dL (40-70) H 08/08/17 18:18 Random Vancomycin 19.5 ug/mL (0-40.0) 08/22/17 03:40 Hep Bs Antigen Non-reactive (Negative) 08/22/17 03:40 Hepatitis C Antibody Non-reactive (NonReactive) 08/22/17 03:40 Miscellaneous Test Flexitest 1 H 09/06/17 09:57 Blood Type O POSITIVE 09/24/17 04:00 Antibody Screen Negative 09/24/17 04:00 VAN Antibody Screen Negative 09/07/17 17:07 Crossmatch See Detail 09/21/17 11:50
[2017-09-24] MEDS ORDERED: NACL 0.9% 500 ML 500 ML IV NR (13:00)
--- NOTE | 2017-09-24 13:07 | Progress Note ---
Assessment and Plan Imp: 1. Acute bacterial peritonitis/abscess s/p PD cath removal and multiple exlaps 2. s/p SBO 3. Acute respiratory failure, hypoxia 4. Morbid obesity, excess cals. 5. ESRD 6. Sepsis -> now SIRS 7. s/p LGIB Rec: 1. Levophed requirement coming down this AM (26mcg -> 10mcg with SBP now in the 150's); believe worsening clinical status is primarily due to sepsis/ anastomotic leak, and less likely adrenal insufficiency; patient not healing her wounds including the anastomosis; recommend continue to remain off steroids unless absolutely necessary; would see if anesthesia can place another arterial line in OR 2. Monitor volume status with TPN; remove volume as able with HD 3. Cont. ventilator -> would hold PSV trials as going to surgery again 4. Monitor H/H and for recurrent bleeding; consider more PRBCs for BP support 5. Levophed if necessary to keep MAP > 65 6. Not a candidate for chemical DVT PPx at this point, yet high risk for DVT; LE dopplers neg so would place SCD to LLE versus foot pumps (d/w RN personally) 7. ABX per ID 8. Prognosis remains poor; plan of care reviewed w/ family, they understand/ agree CCT 31 minutes Subjective Date of service: 09/24/17 Principal diagnosis: respiratory failure, sepsis, shock rectal bleeding Interval history: Awake, alert. No complaints although tachypeic on ACVC and appears anxious. On ventilator. On HD, back on Levophed weaned down to 10mcg with SBP currently in the 150s. Active Medications Albuterol (Proventil) 2.5 mg IH Q4HRT PRN PRN Reason: Shortness Of Breath Last Admin: 08/24/17 21:49 Dose: 2.5 mg Dextrose (D50w (25gm) Vial) 50 gm IV PRN PRN PRN Reason: Hypoglycemia Last Admin: 09/15/17 23:57 Dose: 50 gm Heparin Sodium (Porcine) (Heparin 10,000 Units/10 Ml) 2,000 unit IV ISIAH PRN PRN Reason: hemodialysis Last Admin: 09/23/17 14:20 Dose: 2,000 unit Heparin Sodium (Porcine) (Heparin) 5,000 unit IV ISIAH PRN PRN Reason: hemodialysis Last Admin: 09/23/17 14:19 Dose: 5,000 unit Hydromorphone HCl (Dilaudid) 1 mg IV Q4H PRN PRN Reason: Pain , Severe (7-10) Last Admin: 09/23/17 18:02 Dose: 1 mg Hydrophilic Ointment (Vaseline Lip Therapy) 1 applic TP DIRECT PRN PRN Reason: DRY LIPS Last Admin: 09/14/17 11:55 Dose: 1 applic Sodium Chloride (Nacl 0.9%) 100 mls @ 999 mls/hr IV ISIAH PRN PRN Reason: Hypotension Amino Acids/Electrolytes/Dextrose (Tpn Adult) 1,800 mls @ 75 mls/hr IV DAILY@ 1999 GLORIA PRN Reason: Protocol Stop: 09/24/17 19:59 Last Admin: 09/23/17 21:00 Dose: 75 mls/hr Norepinephrine 8 mg/ Sodium (Chloride) 250 mls @ 3.75 mls/hr IV TITR GLORIA; 2 MCG /MIN PRN Reason: Protocol Last Titration: 09/24/17 10:49 Dose: 10 mcg/min, 18.75 mls/hr Sodium Chloride (Nacl 0.9% 1000 Ml) 1,000 mls @ 42 mls/hr IV DIRECT GLORIA Last Admin: 09/24/17 10:33 Dose: 42 mls/hr Cefepime HCl (Maxipime/Ns 2 Gm/100 Ml) 2 gm in 100 mls @ 200 mls/hr IV Q24HR GLORIA PRN Reason: Protocol Last Admin: 09/24/17 12:15 Dose: 200 mls/hr Metronidazole (Flagyl 500 Mg/100 Ml) 500 mg in 100 mls @ 100 mls/hr IV Q8HR GLORIA Fluconazole (Diflucan) 200 mg in 100 mls @ 100 mls/hr IV Q24HR GLORIA PRN Reason: Protocol Last Admin: 09/24/17 10:30 Dose: 100 mls/hr Amino Acids/Electrolytes/Dextrose (Tpn Adult) 1,800 mls @ 75 mls/hr IV DAILY@ 1999 GLORIA PRN Reason: Protocol Stop: 09/25/17 19:59 Sodium Chloride (Nacl 0.9% 500 Ml) 500 mls @ 0 mls/hr IV ONCE ONE PRN Reason: As Directed Stop: 09/24/17 12:55 Insulin Aspart (Novolog) 0 units SUB-Q Q6HR GLORIA PRN Reason: Protocol Last Admin: 09/24/17 12:21 Dose: 6 units Insulin Detemir (Levemir) 45 units SUB-Q DAILY [facility] Last Admin: 09/24/17 10:30 Dose: 45 units Lorazepam (Ativan) 2 mg IV Q6H PRN PRN Reason: Agitation Last Admin: 09/17/17 10:31 Dose: 2 mg Pantoprazole Sodium (Protonix) 40 mg IV QDAY [facility] Last Admin: 09/24/17 10:30 Dose: 40 mg Objective Vital Signs - 12hr 09/24/17 09/24/17 09/24/17 01:15 01:30 01:45 Temperature Pulse Rate 94 H 95 H 112 H Pulse Rate [ Right] Respiratory 25 H 25 H 26 H Rate Blood Pressure 93/34 101/35 117/36 O2 Sat by Pulse 99 99 97 Oximetry 09/24/17 09/24/17 09/24/17 02:01 02:15 02:19 Temperature Pulse Rate 103 H 111 H 96 H Pulse Rate [ Right] Respiratory 25 H 22 23 Rate Blood Pressure 87/28 144/52 O2 Sat by Pulse 99 99 98 Oximetry 09/24/17 09/24/17 09/24/17 02:31 02:45 03:01 Temperature Pulse Rate 112 H 96 H 109 H Pulse Rate [ Right] Respiratory 19 21 23 Rate Blood Pressure 123/40 111/30 108/36 O2 Sat by Pulse 99 85 100 Oximetry 09/24/17 09/24/17 09/24/17 03:15 03:30 03:45 Temperature Pulse Rate 109 H 110 H 104 H Pulse Rate [ Right] Respiratory 25 H 27 H 28 H Rate Blood Pressure 106/42 107/53 104/60 O2 Sat by Pulse 99 97 99 Oximetry 09/24/17 09/24/17 09/24/17 04:00 04:15 04:25 Temperature 99.8 F H Pulse Rate 101 H 110 H 108 H Pulse Rate [ 108 H Right] Respiratory 28 H 21 Rate Blood Pressure 91/36 117/52 91/36 O2 Sat by Pulse 98 98 100 Oximetry 09/24/17 09/24/17 09/24/17 04:30 04:45 05:00 Temperature Pulse Rate 114 H 112 H 102 H Pulse Rate [ Right] Respiratory 28 H 30 H 30 H Rate Blood Pressure 117/52 121/61 125/55 O2 Sat by Pulse 97 97 97 Oximetry 09/24/17 09/24/17 09/24/17 05:05 05:15 05:30 Temperature Pulse Rate 111 H 115 H Pulse Rate [ Right] Respiratory 27 H 31 H 28 H Rate Blood Pressure 121/61 121/61 O2 Sat by Pulse 98 97 96 Oximetry 09/24/17 09/24/17 09/24/17 05:45 06:01 06:15 Temperature Pulse Rate 114 H 112 H 118 H Pulse Rate [ Right] Respiratory 15 26 H 30 H Rate Blood Pressure 113/43 110/50 109/51 O2 Sat by Pulse 96 97 92 Oximetry 09/24/17 09/24/17 09/24/17 06:30 06:45 07:01 Temperature Pulse Rate 119 H 119 H 124 H Pulse Rate [ Right] Respiratory 25 H 25 H 29 H Rate Blood Pressure 109/51 98/53 105/55 O2 Sat by Pulse 91 94 92 Oximetry 09/24/17 09/24/17 09/24/17 07:15 07:31 07:45 Temperature Pulse Rate 121 H 118 H 123 H Pulse Rate [ Right] Respiratory 33 H 35 H 32 H Rate Blood Pressure 86/52 92/44 86/53 O2 Sat by Pulse 94 95 95 Oximetry 09/24/17 09/24/17 09/24/17 08:00 08:01 08:15 Temperature 99.5 F Pulse Rate 116 H 121 H 123 H Pulse Rate [ Right] Respiratory 34 H 32 H Rate Blood Pressure 159/87 86/53 91/43 O2 Sat by Pulse 99 97 94 Oximetry 09/24/17 09/24/17 09/24/17 08:31 08:45 09:00 Temperature Pulse Rate 132 H 117 H 117 H Pulse Rate [ Right] Respiratory 33 H 30 H 29 H Rate Blood Pressure 95/50 100/45 90/41 O2 Sat by Pulse 98 98 98 Oximetry 09/24/17 09/24/17 09/24/17 09:15 09:30 09:45 Temperature Pulse Rate 113 H 113 H 112 H Pulse Rate [ Right] Respiratory 23 30 H 27 H Rate Blood Pressure 143/62 142/69 159/87 O2 Sat by Pulse 97 98 100 Oximetry 09/24/17 09/24/17 09/24/17 10:00 10:15 10:30 Temperature Pulse Rate 114 H 116 H 116 H Pulse Rate [ Right] Respiratory 35 H 35 H 30 H Rate Blood Pressure 157/79 167/79 151/73 O2 Sat by Pulse 94 93 97 Oximetry 09/24/17 09/24/17 09/24/17 10:45 11:00 11:15 Temperature Pulse Rate 119 H 118 H 124 H Pulse Rate [ Right] Respiratory 35 H 33 H 34 H Rate Blood Pressure 166/69 144/66 158/68 O2 Sat by Pulse 93 93 94 Oximetry 09/24/17 09/24/17 09/24/17 11:30 11:45 12:00 Temperature 98.3 F Pulse Rate 116 H 115 H 114 H Pulse Rate [ Right] Respiratory 30 H 35 H 34 H Rate Blood Pressure 129/67 153/81 142/64 O2 Sat by Pulse 95 93 94 Oximetry 09/24/17 12:15 Temperature Pulse Rate 115 H Pulse Rate [ Right] Respiratory 35 H Rate Blood Pressure 135/70 O2 Sat by Pulse 92 Oximetry Constitutional: other (critically ill on vent, obese) Eyes: non-icteric ENT: oropharynx dry Neck: supple, other (trach in position, no bleeding) Effort: mildly labored Ascultation: Bilateral: wheezes (faint expiratory wheezes), other (coarse BS bilaterally) Cardiovascular: other (tachy, RR; no mrg) Gastrointestinal: absent bowel sounds, non-tender, other (abdominal incision with dressing , obese. Drain in place, no bleeding; ostomy with brown stool) Integumentary: normal Extremities: no cyanosis, pink and warm, edema Neurologic: non-focal exam, pupils equal and round Psychiatric: mood appropriate, affect normal CBC and BMP: 09/24/17 04:00 09/24/17 04:00 ABG, PT/INR, D-dimer: ABG POC ABG pH 7.347 (7.35-7.45) L 09/13/17 11:36 ABG pH 7.323 pH Units (7.350-7.450) L 09/09/17 Unknown POC ABG pCO2 34.3 (35-45) L 09/13/17 11:36 ABG pCO2 41.1 mm Hg 09/09/17 Unknown POC ABG pO2 134 (80-105) H 09/13/17 11:36 ABG pO2 94.1 mm Hg (80.0-90.0) H 09/09/17 Unknown POC ABG HCO3 18.8 09/13/17 11:36 POC ABG Total CO2 20 09/13/17 11:36 POC ABG O2 Sat 99 09/13/17 11:36 ABG O2 Saturation 97.2 % (95.0-99.0) 09/09/17 Unknown PT/INR, D-dimer PT 14.9 Sec. (12.2-14.9) 09/21/17 07:00 INR 1.11 (0.87-1.13) 09/21/17 07:00 Abnormal lab findings: Abnormal Labs 08/08/17 08/08/17 08/09/17 21:23 21:31 11:19 WBC 15.7 H RBC 2.93 L Hgb 8.7 L Hct 26.8 L MCV MCH RDW 19.2 H Plt Count Lymph % (Auto) Starke % (Auto) Starke # Seg Neutrophils % Seg Neuts % (Manual) Lymphocytes % (Manual) Monocytes % (Manual) Nucleated RBC % Seg Neutrophils # Seg Neutrophils # Man Lymphocytes # (Manual) Monocytes # (Manual) Eosinophils # (Manual) Basophils # (Manual) PT INR POC ABG pH 7.490 H ABG pH POC ABG pCO2 POC ABG pO2 122 H ABG pO2 ABG O2 Saturation ABG Base Excess ABG Hemoglobin Oxyhemoglobin Sodium Potassium Chloride Carbon Dioxide BUN Creatinine Glucose POC Glucose Calcium Phosphorus Magnesium Iron TIBC Ferritin Total Bilirubin AST ALT Alkaline Phosphatase Total Creatine Kinase Troponin T 0.133 H* C-Reactive Protein Total Protein Albumin Triglycerides HDL Cholesterol 26 L Miscellaneous Test Crossmatch 08/09/17 08/10/17 08/10/17 13:25 04:45 04:45 WBC 15.5 H RBC 2.97 L Hgb 8.9 L Hct 27.0 L MCV MCH RDW 19.2 H Plt Count Lymph % (Auto) [place] % (Auto) [place] # Seg Neutrophils % Seg Neuts % (Manual) 73.0 H Lymphocytes % (Manual) 7.0 L Monocytes % (Manual) 14.0 H Nucleated RBC % Seg Neutrophils # Seg Neutrophils # Man 11.3 H Lymphocytes # (Manual) 1.1 L Monocytes # (Manual) 2.2 H Eosinophils # (Manual) Basophils # (Manual) 0.2 H PT INR POC ABG pH ABG pH POC ABG pCO2 POC ABG pO2 ABG pO2 ABG O2 Saturation ABG Base Excess ABG Hemoglobin Oxyhemoglobin Sodium Potassium 3.3 L Chloride 97.3 L Carbon Dioxide 21 L BUN 23 H Creatinine 6.5 H Glucose POC Glucose Calcium 7.3 L Phosphorus Magnesium Iron TIBC Ferritin Total Bilirubin AST ALT Alkaline Phosphatase 138 H Total Creatine Kinase Troponin T 0.132 H* C-Reactive Protein Total Protein 4.8 L Albumin 1.4 L Triglycerides HDL Cholesterol Miscellaneous Test Crossmatch 08/11/17 08/11/17 08/12/17 04:00 04:00 05:50 WBC 19.3 H RBC 3.10 L Hgb 9.5 L Hct 28.2 L MCV MCH RDW 19.2 H Plt Count 463 H Lymph % (Auto) 7.5 L Starke % (Auto) 14.6 H Starke # 2.8 H Seg Neutrophils % 77.0 H Seg Neuts % (Manual) Lymphocytes % (Manual) Monocytes % (Manual) Nucleated RBC % Seg Neutrophils # 14.8 H Seg Neutrophils # Man Lymphocytes # (Manual) Monocytes # (Manual) Eosinophils # (Manual) Basophils # (Manual) PT INR POC ABG pH ABG pH POC ABG pCO2 POC ABG pO2 ABG pO2 ABG O2 Saturation ABG Base Excess ABG Hemoglobin Oxyhemoglobin Sodium 136 L 136 L Potassium 3.3 L Chloride 96.3 L 96.6 L Carbon Dioxide BUN 26 H 26 H Creatinine 6.4 H 6.2 H Glucose 135 H 133 H POC Glucose Calcium 8.2 L Phosphorus Magnesium 1.30 L Iron TIBC Ferritin Total Bilirubin AST ALT Alkaline Phosphatase 139 H Total Creatine Kinase Troponin T C-Reactive Protein Total Protein 5.5 L Albumin 1.7 L Triglycerides HDL Cholesterol Miscellaneous Test Crossmatch 08/12/17 08/12/17 08/12/17 05:50 05:50 05:50 WBC 20.1 H RBC 3.06 L Hgb 9.3 L Hct 27.9 L MCV MCH RDW 18.4 H Plt Count 471 H Lymph % (Auto) [place] % (Auto) [place] # Seg Neutrophils % Seg Neuts % (Manual) 85.0 H Lymphocytes % (Manual) 8.0 L Monocytes % (Manual) Nucleated RBC % Seg Neutrophils # Seg Neutrophils # Man 17.1 H Lymphocytes # (Manual) Monocytes # (Manual) 1.0 H Eosinophils # (Manual) Basophils # (Manual) PT 15.2 H INR 1.14 H POC ABG pH ABG pH POC ABG pCO2 POC ABG pO2 ABG pO2 ABG O2 Saturation ABG Base Excess ABG Hemoglobin Oxyhemoglobin Sodium Potassium Chloride Carbon Dioxide BUN Creatinine Glucose POC Glucose Calcium Phosphorus Magnesium Iron TIBC Ferritin Total Bilirubin AST ALT Alkaline Phosphatase Total Creatine Kinase Troponin T C-Reactive Protein 28.90 H Total Protein Albumin Triglycerides HDL Cholesterol Miscellaneous Test Crossmatch 08/12/17 08/13/17 08/13/17 16:23 06:14 06:14 WBC 21.8 H RBC 3.11 L Hgb 9.4 L Hct 28.2 L MCV MCH RDW 18.2 H Plt Count 492 H Lymph % (Auto) Starke % (Auto) [place] # Seg Neutrophils % Seg Neuts % (Manual) 73.0 H Lymphocytes % (Manual) 2.0 L Monocytes % (Manual) 15 H Nucleated RBC % Seg Neutrophils # Seg Neutrophils # Man 15.9 H Lymphocytes # (Manual) 0.4 L Monocytes # (Manual) 2.4 H Eosinophils # (Manual) Basophils # (Manual) PT INR POC ABG pH ABG pH POC ABG pCO2 POC ABG pO2 ABG pO2 ABG O2 Saturation ABG Base Excess ABG Hemoglobin Oxyhemoglobin Sodium Potassium Chloride 96.2 L Carbon Dioxide BUN 28 H Creatinine 5.6 H Glucose 114 H POC Glucose Calcium Phosphorus Magnesium Iron TIBC Ferritin Total Bilirubin AST ALT Alkaline Phosphatase Total Creatine Kinase Troponin T C-Reactive Protein 26.10 H Total Protein Albumin Triglycerides HDL Cholesterol Miscellaneous Test Crossmatch 08/13/17 08/14/17 08/14/17 16:39 04:00 04:00 WBC 22.1 H RBC 3.25 L Hgb 9.9 L Hct 29.5 L MCV MCH RDW 17.9 H Plt Count 525 H Lymph % (Auto) [place] % (Auto) [place] # Seg Neutrophils % Seg Neuts % (Manual) 74.0 H Lymphocytes % (Manual) 8.0 L Monocytes % (Manual) 12.0 H Nucleated RBC % Seg Neutrophils # Seg Neutrophils # Man 16.4 H Lymphocytes # (Manual) Monocytes # (Manual) 2.7 H Eosinophils # (Manual) Basophils # (Manual) PT INR POC ABG pH ABG pH POC ABG pCO2 POC ABG pO2 ABG pO2 ABG O2 Saturation ABG Base Excess ABG Hemoglobin Oxyhemoglobin Sodium 134 L Potassium 3.3 L Chloride 93.3 L Carbon Dioxide BUN 27 H Creatinine 6.0 H Glucose 152 H POC Glucose 151 H Calcium Phosphorus Magnesium Iron TIBC Ferritin Total Bilirubin AST ALT Alkaline Phosphatase Total Creatine Kinase Troponin T C-Reactive Protein Total Protein Albumin Triglycerides HDL Cholesterol Miscellaneous Test Crossmatch 08/15/17 08/16/17 08/16/17 09:10 09:50 09:50 WBC 31.1 H RBC 3.21 L Hgb 9.6 L Hct 29.3 L MCV MCH RDW 18.1 H Plt Count 642 H Lymph % (Auto) Starke % (Auto) [place] # Seg Neutrophils % Seg Neuts % (Manual) 74.0 H Lymphocytes % (Manual) 4.0 L Monocytes % (Manual) 9.0 H Nucleated RBC % Seg Neutrophils # Seg Neutrophils # Man 23.0 H Lymphocytes # (Manual) Monocytes # (Manual) 2.8 H Eosinophils # (Manual) Basophils # (Manual) PT INR POC ABG pH ABG pH POC ABG pCO2 POC ABG pO2 ABG pO2 ABG O2 Saturation ABG Base Excess ABG Hemoglobin Oxyhemoglobin Sodium 136 L 136 L Potassium 3.5 L Chloride 97.6 L 94.9 L Carbon Dioxide BUN 27 H 28 H Creatinine 5.6 H 5.5 H Glucose 117 H 103 H POC Glucose Calcium Phosphorus Magnesium Iron TIBC Ferritin Total Bilirubin AST ALT Alkaline Phosphatase 137 H Total Creatine Kinase Troponin T C-Reactive Protein Total Protein 5.4 L Albumin 1.5 L Triglycerides HDL Cholesterol Miscellaneous Test Crossmatch 08/16/17 08/17/17 08/17/17 09:50 05:00 06:26 WBC RBC Hgb Hct MCV MCH RDW Plt Count Lymph % (Auto) Star[place] % (Auto) [place] # Seg Neutrophils % Seg Neuts % (Manual) Lymphocytes % (Manual) Monocytes % (Manual) Nucleated RBC % Seg Neutrophils # Seg Neutrophils # Man Lymphocytes # (Manual) Monocytes # (Manual) Eosinophils # (Manual) Basophils # (Manual) PT INR POC ABG pH ABG pH POC ABG pCO2 POC ABG pO2 ABG pO2 ABG O2 Saturation ABG Base Excess ABG Hemoglobin Oxyhemoglobin Sodium 134 L Potassium 3.0 L Chloride 97.8 L Carbon Dioxide BUN 30 H Creatinine 5.3 H Glucose 147 H POC Glucose 165 H Calcium 7.5 L Phosphorus Magnesium Iron TIBC Ferritin Total Bilirubin AST ALT Alkaline Phosphatase Total Creatine Kinase Troponin T C-Reactive Protein 32.30 H Total Protein Albumin Triglycerides HDL Cholesterol Miscellaneous Test Crossmatch 08/17/17 08/17/17 08/17/17 10:56 11:20 11:20 WBC 39.1 H RBC 3.10 L Hgb 9.2 L Hct 28.6 L MCV MCH RDW 18.3 H Plt Count 580 H Lymph % (Auto) [place] % (Auto) [place] # Seg Neutrophils % Seg Neuts % (Manual) 89.5 H Lymphocytes % (Manual) 3.5 L Monocytes % (Manual) Nucleated RBC % Seg Neutrophils # Seg Neutrophils # Man 35.0 H Lymphocytes # (Manual) Monocytes # (Manual) 2.5 H Eosinophils # (Manual) Basophils # (Manual) 0.2 H PT INR POC ABG pH 7.464 H ABG pH POC ABG pCO2 34.1 L POC ABG pO2 75 L ABG pO2 ABG O2 Saturation ABG Base Excess ABG Hemoglobin Oxyhemoglobin Sodium Potassium Chloride Carbon Dioxide BUN Creatinine Glucose POC Glucose Calcium Phosphorus Magnesium Iron TIBC Ferritin Total Bilirubin AST ALT Alkaline Phosphatase Total Creatine Kinase Troponin T C-Reactive Protein Total Protein Albumin Triglycerides HDL Cholesterol Miscellaneous Test Flexitest 1 H Crossmatch 08/17/17 08/17/17 08/17/17 11:20 16:57 20:20 WBC 34.4 H RBC 2.81 L Hgb 8.4 L Hct 26.0 L MCV MCH RDW 17.8 H Plt Count 455 H Lymph % (Auto) [place] % (Auto) [place] # Seg Neutrophils % Seg Neuts % (Manual) Lymphocytes % (Manual) 3.5 L Monocytes % (Manual) Nucleated RBC % 5.0 H Seg Neutrophils # Seg Neutrophils # Man 16.5 H Lymphocytes # (Manual) Monocytes # (Manual) 1.0 H Eosinophils # (Manual) Basophils # (Manual) PT 16.0 H INR 1.29 H POC ABG pH ABG pH POC ABG pCO2 POC ABG pO2 ABG pO2 ABG O2 Saturation ABG Base Excess ABG Hemoglobin Oxyhemoglobin Sodium 135 L Potassium 2.9 L* Chloride Carbon Dioxide 20 L BUN 32 H Creatinine 5.4 H Glucose 129 H POC Glucose Calcium 7.5 L Phosphorus Magnesium 1.50 L Iron TIBC Ferritin Total Bilirubin AST 85 H ALT Alkaline Phosphatase Total Creatine Kinase Troponin T C-Reactive Protein Total Protein 4.0 L D Albumin 1.6 L Triglycerides HDL Cholesterol Miscellaneous Test Crossmatch 08/17/17 08/17/17 08/18/17 20:54 23:47 04:26 WBC RBC Hgb Hct MCV MCH RDW Plt Count Lymph % (Auto) [place] % (Auto) [place] # Seg Neutrophils % Seg Neuts % (Manual) Lymphocytes % (Manual) Monocytes % (Manual) Nucleated RBC % Seg Neutrophils # Seg Neutrophils # Man Lymphocytes # (Manual) Monocytes # (Manual) Eosinophils # (Manual) Basophils # (Manual) PT INR POC ABG pH 7.557 H ABG pH POC ABG pCO2 23.1 L 29.0 L POC ABG pO2 187 H 148 H ABG pO2 ABG O2 Saturation ABG Base Excess ABG Hemoglobin Oxyhemoglobin Sodium Potassium Chloride Carbon Dioxide BUN Creatinine Glucose POC Glucose 188 H Calcium Phosphorus Magnesium Iron TIBC Ferritin Total Bilirubin AST ALT Alkaline Phosphatase Total Creatine Kinase Troponin T C-Reactive Protein Total Protein Albumin Triglycerides HDL Cholesterol Miscellaneous Test Crossmatch 08/18/17 08/18/17 08/18/17 05:51 11:44 17:07 WBC RBC Hgb Hct MCV MCH RDW Plt Count Lymph % (Auto) [place] % (Auto) [place] # Seg Neutrophils % Seg Neuts % (Manual) Lymphocytes % (Manual) Monocytes % (Manual) Nucleated RBC % Seg Neutrophils # Seg Neutrophils # Man Lymphocytes # (Manual) Monocytes # (Manual) Eosinophils # (Manual) Basophils # (Manual) PT INR POC ABG pH ABG pH POC ABG pCO2 POC ABG pO2 ABG pO2 ABG O2 Saturation ABG Base Excess ABG Hemoglobin Oxyhemoglobin Sodium Potassium Chloride Carbon Dioxide BUN Creatinine Glucose POC Glucose 202 H 195 H 182 H Calcium Phosphorus Magnesium Iron TIBC Ferritin Total Bilirubin AST ALT Alkaline Phosphatase Total Creatine Kinase Troponin T C-Reactive Protein Total Protein Albumin Triglycerides HDL Cholesterol Miscellaneous Test Crossmatch 08/18/17 08/18/17 08/18/17 23:45 Unknown Unknown WBC 39.0 H RBC 2.84 L Hgb 8.4 L Hct 26.5 L MCV MCH RDW 18.0 H Plt Count 476 H Lymph % (Auto) [place] % (Auto) [place] # Seg Neutrophils % Seg Neuts % (Manual) Lymphocytes % (Manual) 7.0 L Monocytes % (Manual) 10.0 H Nucleated RBC % 3.0 H Seg Neutrophils # Seg Neutrophils # Man 15.6 H Lymphocytes # (Manual) Monocytes # (Manual) 3.9 H Eosinophils # (Manual) Basophils # (Manual) PT INR POC ABG pH ABG pH POC ABG pCO2 POC ABG pO2 ABG pO2 ABG O2 Saturation ABG Base Excess ABG Hemoglobin Oxyhemoglobin Sodium Potassium Chloride Carbon Dioxide 19 L BUN 34 H Creatinine 5.6 H Glucose 201 H POC Glucose 163 H Calcium 7.8 L Phosphorus 1.90 L D Magnesium 1.60 L Iron TIBC Ferritin Total Bilirubin AST ALT Alkaline Phosphatase Total Creatine Kinase Troponin T C-Reactive Protein Total Protein Albumin Triglycerides HDL Cholesterol Miscellaneous Test Crossmatch 08/19/17 08/19/17 08/19/17 04:18 05:00 05:00 WBC 40.0 H RBC 2.46 L Hgb 7.3 L Hct 22.6 L MCV MCH RDW 18.1 H Plt Count Lymph % (Auto) [place] % (Auto) [place] # Seg Neutrophils % Seg Neuts % (Manual) Lymphocytes % (Manual) 8.0 L Monocytes % (Manual) Nucleated RBC % 2.0 H Seg Neutrophils # Seg Neutrophils # Man 16.4 H Lymphocytes # (Manual) Monocytes # (Manual) 1.2 H Eosinophils # (Manual) 1.2 H Basophils # (Manual) PT INR POC ABG pH 7.463 H ABG pH POC ABG pCO2 29.7 L POC ABG pO2 134 H ABG pO2 ABG O2 Saturation ABG Base Excess ABG Hemoglobin Oxyhemoglobin Sodium Potassium 5.1 H D Chloride Carbon Dioxide 20 L BUN 40 H Creatinine 5.3 H Glucose 128 H POC Glucose Calcium 7.8 L Phosphorus 1.90 L Magnesium Iron TIBC Ferritin Total Bilirubin AST ALT Alkaline Phosphatase Total Creatine Kinase Troponin T C-Reactive Protein Total Protein Albumin Triglycerides HDL Cholesterol Miscellaneous Test Crossmatch 08/19/17 08/19/17 08/19/17 05:19 07:37 09:52 WBC 45.0 H* RBC 2.50 L Hgb 7.5 L Hct 24.5 L MCV 98 H MCH RDW 18.4 H Plt Count Lymph % (Auto) [place] % (Auto) [place] # Seg Neutrophils % Seg Neuts % (Manual) 81.5 H Lymphocytes % (Manual) 4.0 L Monocytes % (Manual) Nucleated RBC % 1.0 H Seg Neutrophils # Seg Neutrophils # Man 36.7 H Lymphocytes # (Manual) Monocytes # (Manual) Eosinophils # (Manual) Basophils # (Manual) PT INR POC ABG pH ABG pH POC ABG pCO2 POC ABG pO2 ABG pO2 ABG O2 Saturation ABG Base Excess ABG Hemoglobin Oxyhemoglobin Sodium Potassium Chloride Carbon Dioxide BUN Creatinine Glucose POC Glucose 142 H Calcium Phosphorus Magnesium Iron TIBC Ferritin Total Bilirubin AST ALT Alkaline Phosphatase Total Creatine Kinase Troponin T C-Reactive Protein 34.20 H Total Protein Albumin Triglycerides HDL Cholesterol Miscellaneous Test Crossmatch 08/19/17 08/19/17 08/20/17 11:16 18:12 00:35 WBC RBC Hgb Hct MCV MCH RDW Plt Count Lymph % (Auto) [place] % (Auto) [place] # Seg Neutrophils % Seg Neuts % (Manual) Lymphocytes % (Manual) Monocytes % (Manual) Nucleated RBC % Seg Neutrophils # Seg Neutrophils # Man Lymphocytes # (Manual) Monocytes # (Manual) Eosinophils # (Manual) Basophils # (Manual) PT INR POC ABG pH ABG pH POC ABG pCO2 POC ABG pO2 ABG pO2 ABG O2 Saturation ABG Base Excess ABG Hemoglobin Oxyhemoglobin Sodium Potassium Chloride Carbon Dioxide BUN Creatinine Glucose POC Glucose 143 H 137 H 164 H Calcium Phosphorus Magnesium Iron TIBC Ferritin Total Bilirubin AST ALT Alkaline Phosphatase Total Creatine Kinase Troponin T C-Reactive Protein Total Protein Albumin Triglycerides HDL Cholesterol Miscellaneous Test Crossmatch 08/20/17 08/20/17 08/20/17 03:20 03:20 04:00 WBC 48.0 H* RBC 2.55 L Hgb 7.6 L Hct 23.4 L MCV MCH RDW 18.4 H Plt Count Lymph % (Auto) [place] % (Auto) [place] # Seg Neutrophils % Seg Neuts % (Manual) 90.0 H Lymphocytes % (Manual) 3.0 L Monocytes % (Manual) Nucleated RBC % Seg Neutrophils # Seg Neutrophils # Man 43.2 H Lymphocytes # (Manual) Monocytes # (Manual) 1.4 H Eosinophils # (Manual) 0.5 H Basophils # (Manual) PT INR POC ABG pH 7.499 H ABG pH POC ABG pCO2 29.1 L POC ABG pO2 ABG pO2 ABG O2 Saturation ABG Base Excess ABG Hemoglobin Oxyhemoglobin Sodium 135 L Potassium Chloride Carbon Dioxide BUN 28 H Creatinine 4.0 H Glucose 140 H POC Glucose Calcium 8.0 L Phosphorus 1.70 L Magnesium 1.60 L Iron TIBC Ferritin Total Bilirubin AST ALT Alkaline Phosphatase Total Creatine Kinase Troponin T C-Reactive Protein Total Protein Albumin Triglycerides HDL Cholesterol Miscellaneous Test Crossmatch 08/20/17 08/20/17 08/20/17 05:02 12:05 13:12 WBC RBC Hgb Hct MCV MCH RDW Plt Count Lymph % (Auto) [place] % (Auto) [place] # Seg Neutrophils % Seg Neuts % (Manual) Lymphocytes % (Manual) Monocytes % (Manual) Nucleated RBC % Seg Neutrophils # Seg Neutrophils # Man Lymphocytes # (Manual) Monocytes # (Manual) Eosinophils # (Manual) Basophils # (Manual) PT INR POC ABG pH 7.537 H ABG pH POC ABG pCO2 27.9 L POC ABG pO2 79 L ABG pO2 ABG O2 Saturation ABG Base Excess ABG Hemoglobin Oxyhemoglobin Sodium Potassium Chloride Carbon Dioxide BUN Creatinine Glucose POC Glucose 158 H 203 H Calcium Phosphorus Magnesium Iron TIBC Ferritin Total Bilirubin AST ALT Alkaline Phosphatase Total Creatine Kinase Troponin T C-Reactive Protein Total Protein Albumin Triglycerides HDL Cholesterol Miscellaneous Test Crossmatch 08/20/17 08/21/17 08/21/17 17:13 00:47 03:14 WBC RBC Hgb Hct MCV MCH RDW Plt Count Lymph % (Auto) [place] % (Auto) [place] # Seg Neutrophils % Seg Neuts % (Manual) Lymphocytes % (Manual) Monocytes % (Manual) Nucleated RBC % Seg Neutrophils # Seg Neutrophils # Man Lymphocytes # (Manual) Monocytes # (Manual) Eosinophils # (Manual) Basophils # (Manual) PT INR POC ABG pH 7.481 H ABG pH POC ABG pCO2 29.6 L POC ABG pO2 ABG pO2 ABG O2 Saturation ABG Base Excess ABG Hemoglobin Oxyhemoglobin Sodium Potassium Chloride Carbon Dioxide BUN Creatinine Glucose POC Glucose 188 H 109 H Calcium Phosphorus Magnesium Iron TIBC Ferritin Total Bilirubin AST ALT Alkaline Phosphatase Total Creatine Kinase Troponin T C-Reactive Protein Total Protein Albumin Triglycerides HDL Cholesterol Miscellaneous Test Crossmatch 08/21/17 08/21/17 08/21/17 05:05 06:50 06:50 WBC 44.7 H* RBC 2.41 L Hgb 7.1 L Hct 22.1 L MCV MCH RDW 18.3 H Plt Count Lymph % (Auto) [place] % (Auto) [place] # Seg Neutrophils % Seg Neuts % (Manual) 89.0 H Lymphocytes % (Manual) 0 L Monocytes % (Manual) Nucleated RBC % 1.0 H Seg Neutrophils # Seg Neutrophils # Man 39.8 H Lymphocytes # (Manual) 0.0 L Monocytes # (Manual) 1.3 H Eosinophils # (Manual) Basophils # (Manual) PT INR POC ABG pH ABG pH POC ABG pCO2 POC ABG pO2 ABG pO2 ABG O2 Saturation ABG Base Excess ABG Hemoglobin Oxyhemoglobin Sodium 135 L Potassium Chloride Carbon Dioxide BUN 39 H Creatinine 4.4 H Glucose 147 H POC Glucose 166 H Calcium 8.1 L Phosphorus Magnesium Iron TIBC Ferritin Total Bilirubin AST ALT < 5 L Alkaline Phosphatase 164 H Total Creatine Kinase Troponin T C-Reactive Protein Total Protein 4.7 L Albumin 1.4 L Triglycerides HDL Cholesterol Miscellaneous Test Crossmatch 08/21/17 08/21/17 08/21/17 08:00 12:21 17:02 WBC RBC Hgb Hct MCV MCH RDW Plt Count Lymph % (Auto) [place] % (Auto) [place] # Seg Neutrophils % Seg Neuts % (Manual) Lymphocytes % (Manual) Monocytes % (Manual) Nucleated RBC % Seg Neutrophils # Seg Neutrophils # Man Lymphocytes # (Manual) Monocytes # (Manual) Eosinophils # (Manual) Basophils # (Manual) PT INR POC ABG pH ABG pH POC ABG pCO2 POC ABG pO2 ABG pO2 ABG O2 Saturation ABG Base Excess ABG Hemoglobin Oxyhemoglobin Sodium Potassium Chloride Carbon Dioxide BUN Creatinine Glucose POC Glucose 147 H 135 H Calcium Phosphorus Magnesium Iron TIBC Ferritin Total Bilirubin AST ALT Alkaline Phosphatase Total Creatine Kinase Troponin T C-Reactive Protein Total Protein Albumin Triglycerides HDL Cholesterol Miscellaneous Test Crossmatch See Detail 08/21/17 08/22/17 08/22/17 23:38 03:40 03:40 WBC 42.5 H* RBC 2.88 L Hgb 8.5 L Hct 26.3 L MCV MCH RDW 17.9 H Plt Count Lymph % (Auto) [place] % (Auto) [place] # Seg Neutrophils % Seg Neuts % (Manual) Lymphocytes % (Manual) 5.0 L Monocytes % (Manual) Nucleated RBC % Seg Neutrophils # Seg Neutrophils # Man 19.6 H Lymphocytes # (Manual) Monocytes # (Manual) 2.6 H Eosinophils # (Manual) Basophils # (Manual) PT INR POC ABG pH ABG pH POC ABG pCO2 POC ABG pO2 ABG pO2 ABG O2 Saturation ABG Base Excess ABG Hemoglobin Oxyhemoglobin Sodium Potassium 3.3 L D Chloride Carbon Dioxide BUN 27 H Creatinine 2.9 H Glucose 144 H POC Glucose 251 H Calcium 8.0 L Phosphorus 2.40 L Magnesium Iron TIBC Ferritin Total Bilirubin AST ALT Alkaline Phosphatase Total Creatine Kinase Troponin T C-Reactive Protein Total Protein Albumin Triglycerides HDL Cholesterol Miscellaneous Test Crossmatch 08/22/17 08/22/17 08/22/17 06:37 08:50 11:25 WBC RBC Hgb Hct MCV MCH RDW Plt Count Lymph % (Auto) [place] % (Auto) [place] # Seg Neutrophils % Seg Neuts % (Manual) Lymphocytes % (Manual) Monocytes % (Manual) Nucleated RBC % Seg Neutrophils # Seg Neutrophils # Man Lymphocytes # (Manual) Monocytes # (Manual) Eosinophils # (Manual) Basophils # (Manual) PT INR POC ABG pH ABG pH POC ABG pCO2 POC ABG pO2 ABG pO2 ABG O2 Saturation ABG Base Excess ABG Hemoglobin Oxyhemoglobin Sodium Potassium Chloride Carbon Dioxide BUN Creatinine Glucose POC Glucose 152 H 175 H Calcium Phosphorus Magnesium Iron TIBC Ferritin Total Bilirubin AST ALT Alkaline Phosphatase Total Creatine Kinase Troponin T C-Reactive Protein Total Protein Albumin Triglycerides HDL Cholesterol Miscellaneous Test Flexitest 1 H Crossmatch 08/22/17 08/22/17 08/22/17 16:25 17:56 23:03 WBC RBC Hgb Hct MCV MCH RDW Plt Count Lymph % (Auto) [place] % (Auto) [place] # Seg Neutrophils % Seg Neuts % (Manual) Lymphocytes % (Manual) Monocytes % (Manual) Nucleated RBC % Seg Neutrophils # Seg Neutrophils # Man Lymphocytes # (Manual) Monocytes # (Manual) Eosinophils # (Manual) Basophils # (Manual) PT INR POC ABG pH ABG pH POC ABG pCO2 POC ABG pO2 ABG pO2 ABG O2 Saturation ABG Base Excess ABG Hemoglobin Oxyhemoglobin Sodium Potassium Chloride Carbon Dioxide BUN Creatinine Glucose POC Glucose 232 H 192 H Calcium Phosphorus Magnesium Iron TIBC Ferritin Total Bilirubin AST ALT Alkaline Phosphatase Total Creatine Kinase Troponin T C-Reactive Protein 30.70 H Total Protein Albumin Triglycerides HDL Cholesterol Miscellaneous Test Crossmatch 08/23/17 08/23/17 08/23/17 05:36 08:50 12:14 WBC RBC Hgb Hct MCV MCH RDW Plt Count Lymph % (Auto) [place] % (Auto) [place] # Seg Neutrophils % Seg Neuts % (Manual) Lymphocytes % (Manual) Monocytes % (Manual) Nucleated RBC % Seg Neutrophils # Seg Neutrophils # Man Lymphocytes # (Manual) Monocytes # (Manual) Eosinophils # (Manual) Basophils # (Manual) PT INR POC ABG pH ABG pH POC ABG pCO2 POC ABG pO2 ABG pO2 ABG O2 Saturation ABG Base Excess ABG Hemoglobin Oxyhemoglobin Sodium Potassium Chloride 107.1 H Carbon Dioxide BUN 49 H Creatinine 3.3 H Glucose 172 H POC Glucose 206 H 238 H Calcium Phosphorus Magnesium 2.40 H Iron TIBC Ferritin Total Bilirubin AST ALT Alkaline Phosphatase Total Creatine Kinase Troponin T C-Reactive Protein Total Protein Albumin Triglycerides HDL Cholesterol Miscellaneous Test Crossmatch 08/23/17 08/23/17 08/24/17 17:21 23:13 04:00 WBC 34.2 H RBC 2.86 L Hgb 8.4 L Hct 25.9 L MCV MCH RDW 17.9 H Plt Count Lymph % (Auto) [place] % (Auto) [place] # Seg Neutrophils % Seg Neuts % (Manual) 85.0 H Lymphocytes % (Manual) 0.5 L Monocytes % (Manual) Nucleated RBC % 1.0 H Seg Neutrophils # Seg Neutrophils # Man 29.1 H Lymphocytes # (Manual) 0.2 L Monocytes # (Manual) 2.4 H Eosinophils # (Manual) Basophils # (Manual) PT INR POC ABG pH ABG pH POC ABG pCO2 POC ABG pO2 ABG pO2 ABG O2 Saturation ABG Base Excess ABG Hemoglobin Oxyhemoglobin Sodium Potassium Chloride Carbon Dioxide BUN Creatinine Glucose POC Glucose 226 H 183 H Calcium Phosphorus Magnesium Iron TIBC Ferritin Total Bilirubin AST ALT Alkaline Phosphatase Total Creatine Kinase Troponin T C-Reactive Protein Total Protein Albumin Triglycerides HDL Cholesterol Miscellaneous Test Crossmatch 08/24/17 08/24/17 08/24/17 05:06 09:30 12:04 WBC RBC Hgb Hct MCV MCH RDW Plt Count Lymph % (Auto) [place] % (Auto) [place] # Seg Neutrophils % Seg Neuts % (Manual) Lymphocytes % (Manual) Monocytes % (Manual) Nucleated RBC % Seg Neutrophils # Seg Neutrophils # Man Lymphocytes # (Manual) Monocytes # (Manual) Eosinophils # (Manual) Basophils # (Manual) PT INR POC ABG pH ABG pH POC ABG pCO2 POC ABG pO2 ABG pO2 ABG O2 Saturation ABG Base Excess ABG Hemoglobin Oxyhemoglobin Sodium Potassium Chloride Carbon Dioxide BUN 46 H Creatinine 2.5 H Glucose 176 H POC Glucose 201 H 181 H Calcium Phosphorus Magnesium Iron TIBC Ferritin Total Bilirubin AST ALT Alkaline Phosphatase Total Creatine Kinase Troponin T C-Reactive Protein Total Protein Albumin Triglycerides HDL Cholesterol Miscellaneous Test Crossmatch 08/24/17 08/24/17 08/25/17 18:04 23:05 05:05 WBC RBC Hgb Hct MCV MCH RDW Plt Count Lymph % (Auto) [place] % (Auto) [place] # Seg Neutrophils % Seg Neuts % (Manual) Lymphocytes % (Manual) Monocytes % (Manual) Nucleated RBC % Seg Neutrophils # Seg Neutrophils # Man Lymphocytes # (Manual) Monocytes # (Manual) Eosinophils # (Manual) Basophils # (Manual) PT INR POC ABG pH ABG pH POC ABG pCO2 POC ABG pO2 ABG pO2 ABG O2 Saturation ABG Base Excess ABG Hemoglobin Oxyhemoglobin Sodium Potassium Chloride Carbon Dioxide BUN Creatinine Glucose POC Glucose 189 H 175 H 190 H Calcium Phosphorus Magnesium Iron TIBC Ferritin Total Bilirubin AST ALT Alkaline Phosphatase Total Creatine Kinase Troponin T C-Reactive Protein Total Protein Albumin Triglycerides HDL Cholesterol Miscellaneous Test Crossmatch 08/25/17 08/25/17 08/26/17 07:02 11:53 05:30 WBC 33.5 H RBC 2.47 L Hgb 7.3 L Hct 23.0 L MCV MCH RDW 21.3 H Plt Count Lymph % (Auto) [place] % (Auto) [place] # Seg Neutrophils % Seg Neuts % (Manual) 92.0 H Lymphocytes % (Manual) 1.0 L Monocytes % (Manual) Nucleated RBC % Seg Neutrophils # Seg Neutrophils # Man 30.8 H Lymphocytes # (Manual) 0.3 L Monocytes # (Manual) Eosinophils # (Manual) Basophils # (Manual) PT INR POC ABG pH ABG pH POC ABG pCO2 POC ABG pO2 ABG pO2 ABG O2 Saturation ABG Base Excess ABG Hemoglobin Oxyhemoglobin Sodium Potassium Chloride Carbon Dioxide BUN 32 H Creatinine 5.0 H D Glucose 117 H POC Glucose 191 H Calcium 8.0 L Phosphorus Magnesium Iron TIBC Ferritin Total Bilirubin AST ALT Alkaline Phosphatase Total Creatine Kinase Troponin T C-Reactive Protein Total Protein Albumin Triglycerides HDL Cholesterol Miscellaneous Test Crossmatch 08/26/17 08/26/17 08/26/17 05:30 06:44 13:26 WBC RBC Hgb Hct MCV MCH RDW Plt Count Lymph % (Auto) [place] % (Auto) [place] # Seg Neutrophils % Seg Neuts % (Manual) Lymphocytes % (Manual) Monocytes % (Manual) Nucleated RBC % Seg Neutrophils # Seg Neutrophils # Man Lymphocytes # (Manual) Monocytes # (Manual) Eosinophils # (Manual) Basophils # (Manual) PT INR POC ABG pH ABG pH POC ABG pCO2 POC ABG pO2 ABG pO2 ABG O2 Saturation ABG Base Excess ABG Hemoglobin Oxyhemoglobin Sodium Potassium 5.2 H Chloride Carbon Dioxide BUN 80 H Creatinine 3.4 H Glucose 193 H POC Glucose 232 H 207 H Calcium 8.3 L Phosphorus 6.80 H D Magnesium 2.60 H Iron TIBC Ferritin Total Bilirubin AST 135 H ALT Alkaline Phosphatase 211 H Total Creatine Kinase Troponin T C-Reactive Protein Total Protein 4.8 L Albumin 2.0 L Triglycerides HDL Cholesterol Miscellaneous Test Crossmatch 08/27/17 08/27/17 08/27/17 01:08 06:20 06:20 WBC 35.0 H RBC 2.75 L Hgb 8.4 L Hct 25.1 L MCV MCH RDW 21.8 H Plt Count Lymph % (Auto) [place] % (Auto) [place] # Seg Neutrophils % Seg Neuts % (Manual) Lymphocytes % (Manual) 4.5 L Monocytes % (Manual) Nucleated RBC % Seg Neutrophils # Seg Neutrophils # Man 31.9 H Lymphocytes # (Manual) Monocytes # (Manual) 1.2 H Eosinophils # (Manual) Basophils # (Manual) PT INR POC ABG pH ABG pH POC ABG pCO2 POC ABG pO2 ABG pO2 ABG O2 Saturation ABG Base Excess ABG Hemoglobin Oxyhemoglobin Sodium Potassium Chloride Carbon Dioxide BUN 61 H Creatinine 2.6 H Glucose 184 H POC Glucose 146 H Calcium Phosphorus 4.90 H D Magnesium Iron TIBC Ferritin Total Bilirubin AST ALT Alkaline Phosphatase Total Creatine Kinase Troponin T C-Reactive Protein Total Protein Albumin Triglycerides HDL Cholesterol Miscellaneous Test Crossmatch 08/27/17 08/27/17 08/27/17 07:01 09:17 12:52 WBC RBC Hgb Hct MCV MCH RDW Plt Count Lymph % (Auto) [place] % (Auto) [place] # Seg Neutrophils % Seg Neuts % (Manual) Lymphocytes % (Manual) Monocytes % (Manual) Nucleated RBC % Seg Neutrophils # Seg Neutrophils # Man Lymphocytes # (Manual) Monocytes # (Manual) Eosinophils # (Manual) Basophils # (Manual) PT INR POC ABG pH ABG pH POC ABG pCO2 POC ABG pO2 ABG pO2 ABG O2 Saturation ABG Base Excess ABG Hemoglobin Oxyhemoglobin Sodium Potassium Chloride Carbon Dioxide BUN Creatinine Glucose POC Glucose 165 H 198 H 218 H Calcium Phosphorus Magnesium Iron TIBC Ferritin Total Bilirubin AST ALT Alkaline Phosphatase Total Creatine Kinase Troponin T C-Reactive Protein Total Protein Albumin Triglycerides HDL Cholesterol Miscellaneous Test Crossmatch 08/27/17 08/28/17 08/28/17 17:27 02:13 06:46 WBC RBC Hgb Hct MCV MCH RDW Plt Count Lymph % (Auto) [place] % (Auto) [place] # Seg Neutrophils % Seg Neuts % (Manual) Lymphocytes % (Manual) Monocytes % (Manual) Nucleated RBC % Seg Neutrophils # Seg Neutrophils # Man Lymphocytes # (Manual) Monocytes # (Manual) Eosinophils # (Manual) Basophils # (Manual) PT INR POC ABG pH ABG pH POC ABG pCO2 POC ABG pO2 ABG pO2 ABG O2 Saturation ABG Base Excess ABG Hemoglobin Oxyhemoglobin Sodium Potassium Chloride Carbon Dioxide BUN Creatinine Glucose POC Glucose 151 H 155 H 230 H Calcium Phosphorus Magnesium Iron TIBC Ferritin Total Bilirubin AST ALT Alkaline Phosphatase Total Creatine Kinase Troponin T C-Reactive Protein Total Protein Albumin Triglycerides HDL Cholesterol Miscellaneous Test Crossmatch 08/28/17 08/28/17 08/28/17 06:53 06:53 08:19 WBC 31.1 H RBC 2.26 L Hgb 6.8 L Hct 20.9 L MCV MCH RDW 21.7 H Plt Count Lymph % (Auto) [place] % (Auto) [place] # Seg Neutrophils % Seg Neuts % (Manual) 83.0 H Lymphocytes % (Manual) 4.0 L Monocytes % (Manual) Nucleated RBC % Seg Neutrophils # Seg Neutrophils # Man 25.8 H Lymphocytes # (Manual) Monocytes # (Manual) Eosinophils # (Manual) Basophils # (Manual) PT INR POC ABG pH ABG pH POC ABG pCO2 POC ABG pO2 ABG pO2 ABG O2 Saturation ABG Base Excess ABG Hemoglobin Oxyhemoglobin Sodium Potassium Chloride Carbon Dioxide BUN 81 H Creatinine 3.4 H Glucose 218 H POC Glucose 239 H Calcium Phosphorus 4.90 H Magnesium Iron TIBC Ferritin Total Bilirubin AST ALT Alkaline Phosphatase Total Creatine Kinase Troponin T C-Reactive Protein Total Protein Albumin Triglycerides HDL Cholesterol Miscellaneous Test Crossmatch 08/28/17 08/28/17 08/28/17 11:56 13:05 13:29 WBC RBC Hgb Hct MCV MCH RDW Plt Count Lymph % (Auto) [place] % (Auto) [place] # Seg Neutrophils % Seg Neuts % (Manual) Lymphocytes % (Manual) Monocytes % (Manual) Nucleated RBC % Seg Neutrophils # Seg Neutrophils # Man Lymphocytes # (Manual) Monocytes # (Manual) Eosinophils # (Manual) Basophils # (Manual) PT 16.7 H INR 1.29 H POC ABG pH ABG pH POC ABG pCO2 POC ABG pO2 338 H ABG pO2 ABG O2 Saturation ABG Base Excess ABG Hemoglobin Oxyhemoglobin Sodium Potassium Chloride Carbon Dioxide BUN Creatinine Glucose POC Glucose Calcium Phosphorus Magnesium Iron TIBC Ferritin Total Bilirubin AST ALT Alkaline Phosphatase Total Creatine Kinase Troponin T C-Reactive Protein Total Protein Albumin Triglycerides HDL Cholesterol Miscellaneous Test Crossmatch See Detail 08/28/17 08/28/17 08/29/17 16:22 19:20 04:24 WBC RBC Hgb Hct MCV MCH RDW Plt Count Lymph % (Auto) [place] % (Auto) [place] # Seg Neutrophils % Seg Neuts % (Manual) Lymphocytes % (Manual) Monocytes % (Manual) Nucleated RBC % Seg Neutrophils # Seg Neutrophils # Man Lymphocytes # (Manual) Monocytes # (Manual) Eosinophils # (Manual) Basophils # (Manual) PT INR POC ABG pH 7.469 H ABG pH POC ABG pCO2 POC ABG pO2 240 H ABG pO2 ABG O2 Saturation ABG Base Excess ABG Hemoglobin Oxyhemoglobin Sodium Potassium Chloride Carbon Dioxide BUN Creatinine Glucose POC Glucose 209 H 195 H Calcium Phosphorus Magnesium Iron TIBC Ferritin Total Bilirubin AST ALT Alkaline Phosphatase Total Creatine Kinase Troponin T C-Reactive Protein Total Protein Albumin Triglycerides HDL Cholesterol Miscellaneous Test Crossmatch 08/29/17 08/29/17 08/29/17 04:30 04:30 12:07 WBC 44.9 H* RBC Hgb Hct MCV MCH RDW 23.1 H Plt Count Lymph % (Auto) [place] % (Auto) [place] # Seg Neutrophils % Seg Neuts % (Manual) 38.0 L Lymphocytes % (Manual) 10.0 L Monocytes % (Manual) 10.0 H Nucleated RBC % 6.0 H Seg Neutrophils # Seg Neutrophils # Man 17.1 H Lymphocytes # (Manual) Monocytes # (Manual) 4.5 H Eosinophils # (Manual) Basophils # (Manual) PT INR POC ABG pH ABG pH POC ABG pCO2 POC ABG pO2 ABG pO2 ABG O2 Saturation ABG Base Excess ABG Hemoglobin Oxyhemoglobin Sodium Potassium Chloride Carbon Dioxide BUN 61 H Creatinine 2.4 H Glucose 226 H POC Glucose 200 H Calcium Phosphorus Magnesium Iron TIBC Ferritin Total Bilirubin AST ALT Alkaline Phosphatase Total Creatine Kinase Troponin T C-Reactive Protein Total Protein Albumin Triglycerides HDL Cholesterol Miscellaneous Test Crossmatch 08/29/17 08/29/17 08/29/17 12:30 12:30 17:23 WBC RBC Hgb Hct MCV MCH RDW Plt Count Lymph % (Auto) [place] % (Auto) [place] # Seg Neutrophils % Seg Neuts % (Manual) Lymphocytes % (Manual) Monocytes % (Manual) Nucleated RBC % Seg Neutrophils # Seg Neutrophils # Man Lymphocytes # (Manual) Monocytes # (Manual) Eosinophils # (Manual) Basophils # (Manual) PT INR POC ABG pH ABG pH POC ABG pCO2 POC ABG pO2 ABG pO2 ABG O2 Saturation ABG Base Excess ABG Hemoglobin Oxyhemoglobin Sodium Potassium Chloride Carbon Dioxide BUN Creatinine Glucose POC Glucose 270 H Calcium Phosphorus Magnesium Iron TIBC Ferritin Total Bilirubin AST ALT Alkaline Phosphatase Total Creatine Kinase Troponin T C-Reactive Protein 19.10 H Total Protein Albumin Triglycerides HDL Cholesterol Miscellaneous Test Flexitest 1 H Crossmatch 08/30/17 08/30/17 08/30/17 00:10 01:30 03:31 WBC RBC Hgb Hct MCV MCH RDW Plt Count Lymph % (Auto) [place] % (Auto) [place] # Seg Neutrophils % Seg Neuts % (Manual) Lymphocytes % (Manual) Monocytes % (Manual) Nucleated RBC % Seg Neutrophils # Seg Neutrophils # Man Lymphocytes # (Manual) Monocytes # (Manual) Eosinophils # (Manual) Basophils # (Manual) PT INR POC ABG pH 7.168 L 7.335 L ABG pH POC ABG pCO2 72.8 H POC ABG pO2 257 H 117 H ABG pO2 ABG O2 Saturation ABG Base Excess ABG Hemoglobin Oxyhemoglobin Sodium Potassium Chloride Carbon Dioxide BUN Creatinine Glucose POC Glucose 245 H Calcium Phosphorus Magnesium Iron TIBC Ferritin Total Bilirubin AST ALT Alkaline Phosphatase Total Creatine Kinase Troponin T C-Reactive Protein Total Protein Albumin Triglycerides HDL Cholesterol Miscellaneous Test Crossmatch 08/30/17 08/30/17 08/30/17 05:20 05:20 05:20 WBC 40.9 H* RBC 3.64 L Hgb Hct MCV MCH RDW 24.3 H Plt Count Lymph % (Auto) [place] % (Auto) [place] # Seg Neutrophils % Seg Neuts % (Manual) 80.0 H Lymphocytes % (Manual) 3.0 L Monocytes % (Manual) Nucleated RBC % 1.0 H Seg Neutrophils # Seg Neutrophils # Man 32.7 H Lymphocytes # (Manual) Monocytes # (Manual) Eosinophils # (Manual) Basophils # (Manual) PT INR POC ABG pH ABG pH POC ABG pCO2 POC ABG pO2 ABG pO2 ABG O2 Saturation ABG Base Excess ABG Hemoglobin Oxyhemoglobin Sodium Potassium Chloride Carbon Dioxide BUN 83 H Creatinine 2.9 H Glucose 334 H POC Glucose 309 H Calcium Phosphorus Magnesium Iron TIBC Ferritin Total Bilirubin AST ALT Alkaline Phosphatase Total Creatine Kinase Troponin T C-Reactive Protein Total Protein Albumin Triglycerides HDL Cholesterol Miscellaneous Test Crossmatch 08/30/17 08/30/17 08/31/17 12:18 17:36 00:17 WBC RBC Hgb Hct MCV MCH RDW Plt Count Lymph % (Auto) [place] % (Auto) [place] # Seg Neutrophils % Seg Neuts % (Manual) Lymphocytes % (Manual) Monocytes % (Manual) Nucleated RBC % Seg Neutrophils # Seg Neutrophils # Man Lymphocytes # (Manual) Monocytes # (Manual) Eosinophils # (Manual) Basophils # (Manual) PT INR POC ABG pH ABG pH POC ABG pCO2 POC ABG pO2 ABG pO2 ABG O2 Saturation ABG Base Excess ABG Hemoglobin Oxyhemoglobin Sodium Potassium Chloride Carbon Dioxide BUN Creatinine Glucose POC Glucose 273 H 293 H 360 H Calcium Phosphorus Magnesium Iron TIBC Ferritin Total Bilirubin AST ALT Alkaline Phosphatase Total Creatine Kinase Troponin T C-Reactive Protein Total Protein Albumin Triglycerides HDL Cholesterol Miscellaneous Test Crossmatch 08/31/17 08/31/17 08/31/17 05:30 05:30 05:32 WBC 29.9 H RBC 2.89 L Hgb 8.2 L Hct 24.7 L D MCV MCH RDW 24.4 H Plt Count Lymph % (Auto) [place] % (Auto) [place] # Seg Neutrophils % Seg Neuts % (Manual) Lymphocytes % (Manual) 2.0 L Monocytes % (Manual) Nucleated RBC % 2.0 H Seg Neutrophils # Seg Neutrophils # Man 18.5 H Lymphocytes # (Manual) 0.6 L Monocytes # (Manual) 0.9 H Eosinophils # (Manual) Basophils # (Manual) PT INR POC ABG pH ABG pH POC ABG pCO2 POC ABG pO2 ABG pO2 ABG O2 Saturation ABG Base Excess ABG Hemoglobin Oxyhemoglobin Sodium Potassium Chloride Carbon Dioxide BUN 62 H Creatinine 2.2 H Glucose 245 H POC Glucose 257 H Calcium Phosphorus 2.10 L D Magnesium 1.60 L Iron TIBC Ferritin Total Bilirubin AST ALT Alkaline Phosphatase Total Creatine Kinase Troponin T C-Reactive Protein Total Protein Albumin Triglycerides HDL Cholesterol Miscellaneous Test Crossmatch 08/31/17 08/31/17 08/31/17 11:56 12:05 18:14 WBC 32.5 H RBC 3.19 L Hgb 8.8 L Hct 27.9 L MCV MCH RDW 24.9 H Plt Count Lymph % (Auto) [place] % (Auto) [place] # Seg Neutrophils % Seg Neuts % (Manual) Lymphocytes % (Manual) 1.0 L Monocytes % (Manual) 12.0 H Nucleated RBC % 1.0 H Seg Neutrophils # Seg Neutrophils # Man 13.3 H Lymphocytes # (Manual) 0.3 L Monocytes # (Manual) 3.9 H Eosinophils # (Manual) Basophils # (Manual) PT INR POC ABG pH ABG pH POC ABG pCO2 POC ABG pO2 ABG pO2 ABG O2 Saturation ABG Base Excess ABG Hemoglobin Oxyhemoglobin Sodium Potassium Chloride Carbon Dioxide BUN Creatinine Glucose POC Glucose 245 H Calcium Phosphorus Magnesium Iron TIBC Ferritin Total Bilirubin AST ALT Alkaline Phosphatase Total Creatine Kinase Troponin T C-Reactive Protein Total Protein Albumin Triglycerides HDL Cholesterol Miscellaneous Test Crossmatch See Detail 08/31/17 08/31/17 08/31/17 18:14 18:15 18:22 WBC RBC Hgb Hct MCV MCH RDW Plt Count Lymph % (Auto) [place] % (Auto) [place] # Seg Neutrophils % Seg Neuts % (Manual) Lymphocytes % (Manual) Monocytes % (Manual) Nucleated RBC % Seg Neutrophils # Seg Neutrophils # Man Lymphocytes # (Manual) Monocytes # (Manual) Eosinophils # (Manual) Basophils # (Manual) PT 15.1 H INR POC ABG pH ABG pH POC ABG pCO2 POC ABG pO2 ABG pO2 ABG O2 Saturation ABG Base Excess ABG Hemoglobin Oxyhemoglobin Sodium 136 L Potassium Chloride Carbon Dioxide 21 L BUN 69 H Creatinine 2.3 H Glucose 227 H POC Glucose 240 H Calcium Phosphorus 2.40 L Magnesium 1.50 L Iron TIBC Ferritin Total Bilirubin AST 143 H ALT 114 H Alkaline Phosphatase 267 H Total Creatine Kinase Troponin T C-Reactive Protein Total Protein 4.1 L Albumin 1.8 L Triglycerides HDL Cholesterol Miscellaneous Test Crossmatch 08/31/17 09/01/17 09/01/17 23:53 05:00 05:00 WBC 33.9 H RBC 2.85 L Hgb 7.8 L Hct 24.8 L MCV MCH 27 L RDW 23.9 H Plt Count Lymph % (Auto) [place] % (Auto) [place] # Seg Neutrophils % Seg Neuts % (Manual) Lymphocytes % (Manual) 5.0 L Monocytes % (Manual) Nucleated RBC % Seg Neutrophils # Seg Neutrophils # Man 23.1 H Lymphocytes # (Manual) Monocytes # (Manual) Eosinophils # (Manual) Basophils # (Manual) PT INR POC ABG pH ABG pH POC ABG pCO2 POC ABG pO2 ABG pO2 ABG O2 Saturation ABG Base Excess ABG Hemoglobin Oxyhemoglobin Sodium Potassium Chloride Carbon Dioxide BUN 51 H Creatinine 1.8 H Glucose 195 H POC Glucose 301 H Calcium Phosphorus 1.70 L D Magnesium 1.60 L Iron TIBC Ferritin Total Bilirubin AST 80 H ALT 82 H Alkaline Phosphatase 243 H Total Creatine Kinase Troponin T C-Reactive Protein Total Protein 4.2 L Albumin 1.7 L Triglycerides HDL Cholesterol Miscellaneous Test Crossmatch 09/01/17 09/01/17 09/01/17 05:20 05:47 11:37 WBC RBC Hgb Hct MCV MCH RDW Plt Count Lymph % (Auto) [place] % (Auto) [place] # Seg Neutrophils % Seg Neuts % (Manual) Lymphocytes % (Manual) Monocytes % (Manual) Nucleated RBC % Seg Neutrophils # Seg Neutrophils # Man Lymphocytes # (Manual) Monocytes # (Manual) Eosinophils # (Manual) Basophils # (Manual) PT INR POC ABG pH ABG pH 7.348 L POC ABG pCO2 POC ABG pO2 ABG pO2 70.2 L ABG O2 Saturation ABG Base Excess ABG Hemoglobin 7.5 L Oxyhemoglobin Sodium Potassium Chloride Carbon Dioxide BUN Creatinine Glucose POC Glucose 230 H 254 H Calcium Phosphorus Magnesium Iron TIBC Ferritin Total Bilirubin AST ALT Alkaline Phosphatase Total Creatine Kinase Troponin T C-Reactive Protein Total Protein Albumin Triglycerides HDL Cholesterol Miscellaneous Test Crossmatch 09/01/17 09/01/17 09/02/17 17:39 23:14 04:55 WBC RBC Hgb Hct MCV MCH RDW Plt Count Lymph % (Auto) [place] % (Auto) [place] # Seg Neutrophils % Seg Neuts % (Manual) Lymphocytes % (Manual) Monocytes % (Manual) Nucleated RBC % Seg Neutrophils # Seg Neutrophils # Man Lymphocytes # (Manual) Monocytes # (Manual) Eosinophils # (Manual) Basophils # (Manual) PT INR POC ABG pH ABG pH POC ABG pCO2 POC ABG pO2 ABG pO2 124.8 H ABG O2 Saturation ABG Base Excess -2.9 L ABG Hemoglobin 5.8 L Oxyhemoglobin Sodium Potassium Chloride Carbon Dioxide BUN Creatinine Glucose POC Glucose 297 H 291 H Calcium Phosphorus Magnesium Iron TIBC Ferritin Total Bilirubin AST ALT Alkaline Phosphatase Total Creatine Kinase Troponin T C-Reactive Protein Total Protein Albumin Triglycerides HDL Cholesterol Miscellaneous Test Crossmatch 09/02/17 09/02/17 09/02/17 05:31 06:10 11:58 WBC RBC Hgb Hct MCV MCH RDW Plt Count Lymph % (Auto) [place] % (Auto) [place] # Seg Neutrophils % Seg Neuts % (Manual) Lymphocytes % (Manual) Monocytes % (Manual) Nucleated RBC % Seg Neutrophils # Seg Neutrophils # Man Lymphocytes # (Manual) Monocytes # (Manual) Eosinophils # (Manual) Basophils # (Manual) PT INR POC ABG pH ABG pH POC ABG pCO2 POC ABG pO2 ABG pO2 ABG O2 Saturation ABG Base Excess ABG Hemoglobin Oxyhemoglobin Sodium Potassium Chloride Carbon Dioxide BUN 68 H Creatinine 2.2 H Glucose 369 H POC Glucose 245 H 333 H Calcium 8.2 L Phosphorus Magnesium Iron TIBC Ferritin Total Bilirubin AST ALT Alkaline Phosphatase Total Creatine Kinase Troponin T C-Reactive Protein Total Protein Albumin Triglycerides HDL Cholesterol Miscellaneous Test Crossmatch 09/02/17 09/02/17 09/03/17 15:37 23:50 04:00 WBC RBC Hgb Hct MCV MCH RDW Plt Count Lymph % (Auto) [place] % (Auto) [place] # Seg Neutrophils % Seg Neuts % (Manual) Lymphocytes % (Manual) Monocytes % (Manual) Nucleated RBC % Seg Neutrophils # Seg Neutrophils # Man Lymphocytes # (Manual) Monocytes # (Manual) Eosinophils # (Manual) Basophils # (Manual) PT INR POC ABG pH ABG pH POC ABG pCO2 POC ABG pO2 ABG pO2 ABG O2 Saturation ABG Base Excess ABG Hemoglobin Oxyhemoglobin Sodium Potassium Chloride Carbon Dioxide BUN 59 H Creatinine 1.9 H Glucose 231 H POC Glucose 314 H 240 H Calcium 8.0 L Phosphorus Magnesium Iron TIBC Ferritin Total Bilirubin AST ALT Alkaline Phosphatase 265 H Total Creatine Kinase Troponin T C-Reactive Protein Total Protein 4.4 L Albumin 1.7 L Triglycerides 180 H HDL Cholesterol Miscellaneous Test Crossmatch 09/03/17 09/03/17 09/03/17 05:00 05:32 11:52 WBC 41.5 H* RBC 2.46 L Hgb 6.9 L Hct 21.3 L MCV MCH RDW 24.9 H Plt Count Lymph % (Auto) [place] % (Auto) [place] # Seg Neutrophils % Seg Neuts % (Manual) Lymphocytes % (Manual) 3.0 L Monocytes % (Manual) 9.5 H Nucleated RBC % 1.5 H Seg Neutrophils # Seg Neutrophils # Man 28.8 H Lymphocytes # (Manual) Monocytes # (Manual) 3.9 H Eosinophils # (Manual) Basophils # (Manual) PT INR POC ABG pH ABG pH POC ABG pCO2 POC ABG pO2 ABG pO2 ABG O2 Saturation ABG Base Excess ABG Hemoglobin Oxyhemoglobin Sodium Potassium Chloride Carbon Dioxide BUN Creatinine Glucose POC Glucose 188 H 285 H Calcium Phosphorus Magnesium Iron TIBC Ferritin Total Bilirubin AST ALT Alkaline Phosphatase Total Creatine Kinase Troponin T C-Reactive Protein Total Protein Albumin Triglycerides HDL Cholesterol Miscellaneous Test Crossmatch 09/03/17 09/03/17 09/03/17 16:55 17:44 23:56 WBC RBC Hgb Hct MCV MCH RDW Plt Count Lymph % (Auto) [place] % (Auto) [place] # Seg Neutrophils % Seg Neuts % (Manual) Lymphocytes % (Manual) Monocytes % (Manual) Nucleated RBC % Seg Neutrophils # Seg Neutrophils # Man Lymphocytes # (Manual) Monocytes # (Manual) Eosinophils # (Manual) Basophils # (Manual) PT INR POC ABG pH ABG pH POC ABG pCO2 POC ABG pO2 ABG pO2 ABG O2 Saturation ABG Base Excess ABG Hemoglobin Oxyhemoglobin Sodium Potassium Chloride Carbon Dioxide BUN Creatinine Glucose POC Glucose 217 H 193 H Calcium Phosphorus Magnesium Iron TIBC Ferritin Total Bilirubin AST ALT Alkaline Phosphatase Total Creatine Kinase Troponin T C-Reactive Protein Total Protein Albumin Triglycerides HDL Cholesterol Miscellaneous Test Crossmatch See Detail 09/03/17 09/04/17 09/04/17 Unknown 03:47 04:32 WBC 44.7 H* RBC 3.12 L Hgb 8.7 L Hct 26.7 L MCV MCH RDW 23.5 H Plt Count Lymph % (Auto) [place] % (Auto) [place] # Seg Neutrophils % Seg Neuts % (Manual) Lymphocytes % (Manual) 4.0 L Monocytes % (Manual) Nucleated RBC % 2.0 H Seg Neutrophils # Seg Neutrophils # Man 30.8 H Lymphocytes # (Manual) Monocytes # (Manual) 2.2 H Eosinophils # (Manual) Basophils # (Manual) PT INR POC ABG pH ABG pH POC ABG pCO2 POC ABG pO2 ABG pO2 133.4 H 135.0 H ABG O2 Saturation ABG Base Excess -2.5 L ABG Hemoglobin 5.8 L 7.9 L Oxyhemoglobin Sodium Potassium Chloride Carbon Dioxide BUN Creatinine Glucose POC Glucose Calcium Phosphorus Magnesium Iron TIBC Ferritin Total Bilirubin AST ALT Alkaline Phosphatase Total Creatine Kinase Troponin T C-Reactive Protein Total Protein Albumin Triglycerides HDL Cholesterol Miscellaneous Test Crossmatch 09/04/17 09/04/17 09/04/17 04:32 05:48 10:43 WBC RBC Hgb Hct MCV MCH RDW Plt Count Lymph % (Auto) [place] % (Auto) [place] # Seg Neutrophils % Seg Neuts % (Manual) Lymphocytes % (Manual) Monocytes % (Manual) Nucleated RBC % Seg Neutrophils # Seg Neutrophils # Man Lymphocytes # (Manual) Monocytes # (Manual) Eosinophils # (Manual) Basophils # (Manual) PT INR POC ABG pH ABG pH POC ABG pCO2 POC ABG pO2 ABG pO2 ABG O2 Saturation ABG Base Excess ABG Hemoglobin Oxyhemoglobin Sodium 136 L Potassium 5.2 H D Chloride 94.2 L Carbon Dioxide BUN 71 H Creatinine 2.3 H Glucose 235 H POC Glucose 329 H Calcium 8.3 L Phosphorus Magnesium Iron TIBC Ferritin Total Bilirubin AST ALT Alkaline Phosphatase Total Creatine Kinase Troponin T C-Reactive Protein Total Protein Albumin Triglycerides HDL Cholesterol Miscellaneous Test Flexitest 1 H Crossmatch 09/04/17 09/04/17 09/05/17 12:38 17:30 00:15 WBC RBC Hgb Hct MCV MCH RDW Plt Count Lymph % (Auto) [place] % (Auto) [place] # Seg Neutrophils % Seg Neuts % (Manual) Lymphocytes % (Manual) Monocytes % (Manual) Nucleated RBC % Seg Neutrophils # Seg Neutrophils # Man Lymphocytes # (Manual) Monocytes # (Manual) Eosinophils # (Manual) Basophils # (Manual) PT INR POC ABG pH ABG pH POC ABG pCO2 POC ABG pO2 ABG pO2 ABG O2 Saturation ABG Base Excess ABG Hemoglobin Oxyhemoglobin Sodium Potassium Chloride Carbon Dioxide BUN Creatinine Glucose POC Glucose 444 H 331 H 362 H Calcium Phosphorus Magnesium Iron TIBC Ferritin Total Bilirubin AST ALT Alkaline Phosphatase Total Creatine Kinase Troponin T C-Reactive Protein Total Protein Albumin Triglycerides HDL Cholesterol Miscellaneous Test Crossmatch 09/05/17 09/05/17 09/05/17 03:55 03:55 12:12 WBC 35.3 H RBC 2.87 L Hgb 8.1 L Hct 24.6 L MCV MCH RDW 23.3 H Plt Count Lymph % (Auto) [place] % (Auto) [place] # Seg Neutrophils % Seg Neuts % (Manual) 89.5 H Lymphocytes % (Manual) 3.0 L Monocytes % (Manual) Nucleated RBC % 2.5 H Seg Neutrophils # Seg Neutrophils # Man 31.6 H Lymphocytes # (Manual) 1.1 L Monocytes # (Manual) Eosinophils # (Manual) Basophils # (Manual) PT INR POC ABG pH ABG pH POC ABG pCO2 POC ABG pO2 ABG pO2 ABG O2 Saturation ABG Base Excess ABG Hemoglobin Oxyhemoglobin Sodium 136 L Potassium Chloride 94.7 L Carbon Dioxide BUN 55 H Creatinine 1.8 H Glucose 193 H POC Glucose 344 H Calcium 8.1 L Phosphorus Magnesium Iron TIBC Ferritin Total Bilirubin AST ALT Alkaline Phosphatase Total Creatine Kinase Troponin T C-Reactive Protein Total Protein Albumin Triglycerides HDL Cholesterol Miscellaneous Test Crossmatch 09/05/17 09/05/17 09/05/17 14:32 15:32 16:41 WBC RBC Hgb Hct MCV MCH RDW Plt Count Lymph % (Auto) [place] % (Auto) [place] # Seg Neutrophils % Seg Neuts % (Manual) Lymphocytes % (Manual) Monocytes % (Manual) Nucleated RBC % Seg Neutrophils # Seg Neutrophils # Man Lymphocytes # (Manual) Monocytes # (Manual) Eosinophils # (Manual) Basophils # (Manual) PT INR POC ABG pH ABG pH POC ABG pCO2 POC ABG pO2 ABG pO2 ABG O2 Saturation ABG Base Excess ABG Hemoglobin Oxyhemoglobin Sodium Potassium Chloride Carbon Dioxide BUN Creatinine Glucose POC Glucose 265 H 145 H 188 H Calcium Phosphorus Magnesium Iron TIBC Ferritin Total Bilirubin AST ALT Alkaline Phosphatase Total Creatine Kinase Troponin T C-Reactive Protein Total Protein Albumin Triglycerides HDL Cholesterol Miscellaneous Test Crossmatch 09/05/17 09/05/17 09/05/17 17:28 18:38 20:10 WBC RBC Hgb Hct MCV MCH RDW Plt Count Lymph % (Auto) [place] % (Auto) [place] # Seg Neutrophils % Seg Neuts % (Manual) Lymphocytes % (Manual) Monocytes % (Manual) Nucleated RBC % Seg Neutrophils # Seg Neutrophils # Man Lymphocytes # (Manual) Monocytes # (Manual) Eosinophils # (Manual) Basophils # (Manual) PT INR POC ABG pH ABG pH POC ABG pCO2 POC ABG pO2 ABG pO2 ABG O2 Saturation ABG Base Excess ABG Hemoglobin Oxyhemoglobin Sodium Potassium Chloride Carbon Dioxide BUN Creatinine Glucose POC Glucose 246 H 271 H 165 H Calcium Phosphorus Magnesium Iron TIBC Ferritin Total Bilirubin AST ALT Alkaline Phosphatase Total Creatine Kinase Troponin T C-Reactive Protein Total Protein Albumin Triglycerides HDL Cholesterol Miscellaneous Test Crossmatch 09/05/17 09/05/17 09/06/17 21:06 23:07 00:10 WBC RBC Hgb Hct MCV MCH RDW Plt Count Lymph % (Auto) [place] % (Auto) [place] # Seg Neutrophils % Seg Neuts % (Manual) Lymphocytes % (Manual) Monocytes % (Manual) Nucleated RBC % Seg Neutrophils # Seg Neutrophils # Man Lymphocytes # (Manual) Monocytes # (Manual) Eosinophils # (Manual) Basophils # (Manual) PT INR POC ABG pH ABG pH POC ABG pCO2 POC ABG pO2 ABG pO2 ABG O2 Saturation ABG Base Excess ABG Hemoglobin Oxyhemoglobin Sodium Potassium Chloride Carbon Dioxide BUN Creatinine Glucose POC Glucose 134 H 135 H 147 H Calcium Phosphorus Magnesium Iron TIBC Ferritin Total Bilirubin AST ALT Alkaline Phosphatase Total Creatine Kinase Troponin T C-Reactive Protein Total Protein Albumin Triglycerides HDL Cholesterol Miscellaneous Test Crossmatch 09/06/17 09/06/17 09/06/17 01:08 02:01 03:08 WBC RBC Hgb Hct MCV MCH RDW Plt Count Lymph % (Auto) [place] % (Auto) [place] # Seg Neutrophils % Seg Neuts % (Manual) Lymphocytes % (Manual) Monocytes % (Manual) Nucleated RBC % Seg Neutrophils # Seg Neutrophils # Man Lymphocytes # (Manual) Monocytes # (Manual) Eosinophils # (Manual) Basophils # (Manual) PT INR POC ABG pH ABG pH POC ABG pCO2 POC ABG pO2 ABG pO2 ABG O2 Saturation ABG Base Excess ABG Hemoglobin Oxyhemoglobin Sodium Potassium Chloride Carbon Dioxide BUN Creatinine Glucose POC Glucose 133 H 146 H 135 H Calcium Phosphorus Magnesium Iron TIBC Ferritin Total Bilirubin AST ALT Alkaline Phosphatase Total Creatine Kinase Troponin T C-Reactive Protein Total Protein Albumin Triglycerides HDL Cholesterol Miscellaneous Test Crossmatch 09/06/17 09/06/17 09/06/17 05:30 05:30 05:30 WBC 38.6 H RBC 2.95 L Hgb 8.3 L Hct 25.3 L MCV MCH RDW 22.2 H Plt Count Lymph % (Auto) [place] % (Auto) [place] # Seg Neutrophils % Seg Neuts % (Manual) Lymphocytes % (Manual) 2.0 L Monocytes % (Manual) Nucleated RBC % 5.0 H Seg Neutrophils # Seg Neutrophils # Man 25.9 H Lymphocytes # (Manual) 0.8 L Monocytes # (Manual) 1.9 H Eosinophils # (Manual) Basophils # (Manual) PT INR POC ABG pH ABG pH POC ABG pCO2 POC ABG pO2 ABG pO2 ABG O2 Saturation ABG Base Excess ABG Hemoglobin Oxyhemoglobin Sodium 135 L Potassium Chloride 93.5 L Carbon Dioxide BUN 82 H Creatinine 2.3 H Glucose 148 H POC Glucose Calcium Phosphorus Magnesium Iron TIBC Ferritin Total Bilirubin AST ALT Alkaline Phosphatase Total Creatine Kinase Troponin T C-Reactive Protein 2.80 H Total Protein Albumin Triglycerides HDL Cholesterol Miscellaneous Test Crossmatch 09/06/17 09/06/17 09/06/17 05:48 08:04 09:06 WBC RBC Hgb Hct MCV MCH RDW Plt Count Lymph % (Auto) [place] % (Auto) [place] # Seg Neutrophils % Seg Neuts % (Manual) Lymphocytes % (Manual) Monocytes % (Manual) Nucleated RBC % Seg Neutrophils # Seg Neutrophils # Man Lymphocytes # (Manual) Monocytes # (Manual) Eosinophils # (Manual) Basophils # (Manual) PT INR POC ABG pH ABG pH POC ABG pCO2 POC ABG pO2 ABG pO2 ABG O2 Saturation ABG Base Excess ABG Hemoglobin Oxyhemoglobin Sodium Potassium Chloride Carbon Dioxide BUN Creatinine Glucose POC Glucose 152 H 164 H 172 H Calcium Phosphorus Magnesium Iron TIBC Ferritin Total Bilirubin AST ALT Alkaline Phosphatase Total Creatine Kinase Troponin T C-Reactive Protein Total Protein Albumin Triglycerides HDL Cholesterol Miscellaneous Test Crossmatch 09/06/17 09/06/17 09/06/17 09:57 10:19 10:57 WBC RBC Hgb Hct MCV MCH RDW Plt Count Lymph % (Auto) [place] % (Auto) [place] # Seg Neutrophils % Seg Neuts % (Manual) Lymphocytes % (Manual) Monocytes % (Manual) Nucleated RBC % Seg Neutrophils # Seg Neutrophils # Man Lymphocytes # (Manual) Monocytes # (Manual) Eosinophils # (Manual) Basophils # (Manual) PT INR POC ABG pH ABG pH POC ABG pCO2 POC ABG pO2 ABG pO2 ABG O2 Saturation ABG Base Excess ABG Hemoglobin Oxyhemoglobin Sodium Potassium Chloride Carbon Dioxide BUN Creatinine Glucose POC Glucose 186 H 162 H Calcium Phosphorus Magnesium Iron TIBC Ferritin Total Bilirubin AST ALT Alkaline Phosphatase Total Creatine Kinase Troponin T C-Reactive Protein Total Protein Albumin Triglycerides HDL Cholesterol Miscellaneous Test Flexitest 1 H Crossmatch 09/06/17 09/06/17 09/06/17 13:12 13:40 17:36 WBC RBC Hgb 8.9 L Hct 28.5 L MCV MCH RDW Plt Count Lymph % (Auto) [place] % (Auto) [place] # Seg Neutrophils % Seg Neuts % (Manual) Lymphocytes % (Manual) Monocytes % (Manual) Nucleated RBC % Seg Neutrophils # Seg Neutrophils # Man Lymphocytes # (Manual) Monocytes # (Manual) Eosinophils # (Manual) Basophils # (Manual) PT INR POC ABG pH ABG pH POC ABG pCO2 POC ABG pO2 ABG pO2 ABG O2 Saturation ABG Base Excess ABG Hemoglobin Oxyhemoglobin Sodium Potassium Chloride Carbon Dioxide BUN Creatinine Glucose POC Glucose 166 H 161 H Calcium Phosphorus Magnesium Iron TIBC Ferritin Total Bilirubin AST ALT Alkaline Phosphatase Total Creatine Kinase Troponin T C-Reactive Protein Total Protein Albumin Triglycerides HDL Cholesterol Miscellaneous Test Crossmatch 09/07/17 09/07/17 09/07/17 00:13 03:50 03:50 WBC 47.0 H* RBC 2.81 L Hgb 8.1 L Hct 24.1 L MCV MCH RDW 22.5 H Plt Count Lymph % (Auto) [place] % (Auto) [place] # Seg Neutrophils % Seg Neuts % (Manual) Lymphocytes % (Manual) 9.0 L Monocytes % (Manual) Nucleated RBC % 6.0 H Seg Neutrophils # Seg Neutrophils # Man 27.3 H Lymphocytes # (Manual) Monocytes # (Manual) 0.9 H Eosinophils # (Manual) 1.9 H Basophils # (Manual) PT INR POC ABG pH ABG pH POC ABG pCO2 POC ABG pO2 ABG pO2 ABG O2 Saturation ABG Base Excess ABG Hemoglobin Oxyhemoglobin Sodium 136 L Potassium Chloride 96.3 L Carbon Dioxide BUN 61 H Creatinine 1.7 H Glucose 132 H POC Glucose 183 H Calcium 7.8 L Phosphorus Magnesium Iron TIBC Ferritin Total Bilirubin AST ALT Alkaline Phosphatase Total Creatine Kinase Troponin T C-Reactive Protein Total Protein Albumin Triglycerides HDL Cholesterol Miscellaneous Test Crossmatch 09/07/17 09/07/17 09/07/17 05:12 05:23 11:48 WBC RBC Hgb Hct MCV MCH RDW Plt Count Lymph % (Auto) [place] % (Auto) [place] # Seg Neutrophils % Seg Neuts % (Manual) Lymphocytes % (Manual) Monocytes % (Manual) Nucleated RBC % Seg Neutrophils # Seg Neutrophils # Man Lymphocytes # (Manual) Monocytes # (Manual) Eosinophils # (Manual) Basophils # (Manual) PT INR POC ABG pH ABG pH POC ABG pCO2 POC ABG pO2 ABG pO2 ABG O2 Saturation ABG Base Excess ABG Hemoglobin 7.7 L Oxyhemoglobin 94.8 L Sodium Potassium Chloride Carbon Dioxide BUN Creatinine Glucose POC Glucose 162 H 200 H Calcium Phosphorus Magnesium Iron TIBC Ferritin Total Bilirubin AST ALT Alkaline Phosphatase Total Creatine Kinase Troponin T C-Reactive Protein Total Protein Albumin Triglycerides HDL Cholesterol Miscellaneous Test Crossmatch 09/07/17 09/07/17 09/08/17 17:07 18:21 00:06 WBC RBC Hgb Hct MCV MCH RDW Plt Count Lymph % (Auto) [place] % (Auto) [place] # Seg Neutrophils % Seg Neuts % (Manual) Lymphocytes % (Manual) Monocytes % (Manual) Nucleated RBC % Seg Neutrophils # Seg Neutrophils # Man Lymphocytes # (Manual) Monocytes # (Manual) Eosinophils # (Manual) Basophils # (Manual) PT INR POC ABG pH ABG pH POC ABG pCO2 POC ABG pO2 ABG pO2 ABG O2 Saturation ABG Base Excess ABG Hemoglobin Oxyhemoglobin Sodium Potassium Chloride Carbon Dioxide BUN Creatinine Glucose POC Glucose 181 H 168 H Calcium Phosphorus Magnesium Iron TIBC Ferritin Total Bilirubin AST ALT Alkaline Phosphatase Total Creatine Kinase Troponin T C-Reactive Protein Total Protein Albumin Triglycerides HDL Cholesterol Miscellaneous Test Crossmatch See Detail 09/08/17 09/08/17 09/08/17 04:05 04:05 04:41 WBC 49.7 H* RBC 2.58 L Hgb 7.3 L Hct 22.7 L MCV MCH RDW 22.5 H Plt Count Lymph % (Auto) [place] % (Auto) [place] # Seg Neutrophils % Seg Neuts % (Manual) 90.5 H Lymphocytes % (Manual) 1.5 L Monocytes % (Manual) Nucleated RBC % Seg Neutrophils # Seg Neutrophils # Man 45.0 H Lymphocytes # (Manual) 0.7 L Monocytes # (Manual) 1.7 H Eosinophils # (Manual) Basophils # (Manual) PT INR POC ABG pH ABG pH POC ABG pCO2 POC ABG pO2 ABG pO2 ABG O2 Saturation ABG Base Excess ABG Hemoglobin Oxyhemoglobin Sodium 132 L Potassium Chloride 92.1 L Carbon Dioxide BUN 82 H Creatinine 2.2 H Glucose 162 H POC Glucose 235 H Calcium 8.3 L Phosphorus 5.20 H D Magnesium Iron TIBC Ferritin Total Bilirubin AST ALT Alkaline Phosphatase 199 H Total Creatine Kinase Troponin T C-Reactive Protein Total Protein 4.5 L Albumin 1.7 L Triglycerides HDL Cholesterol Miscellaneous Test Crossmatch 09/08/17 09/08/17 09/08/17 09:21 11:52 17:38 WBC RBC Hgb Hct MCV MCH RDW Plt Count Lymph % (Auto) [place] % (Auto) [place] # Seg Neutrophils % Seg Neuts % (Manual) Lymphocytes % (Manual) Monocytes % (Manual) Nucleated RBC % Seg Neutrophils # Seg Neutrophils # Man Lymphocytes # (Manual) Monocytes # (Manual) Eosinophils # (Manual) Basophils # (Manual) PT INR POC ABG pH ABG pH POC ABG pCO2 POC ABG pO2 ABG pO2 218.5 H ABG O2 Saturation 99.3 H ABG Base Excess -3.5 L ABG Hemoglobin 7.7 L Oxyhemoglobin Sodium Potassium Chloride Carbon Dioxide BUN Creatinine Glucose POC Glucose 220 H 194 H Calcium Phosphorus Magnesium Iron TIBC Ferritin Total Bilirubin AST ALT Alkaline Phosphatase Total Creatine Kinase Troponin T C-Reactive Protein Total Protein Albumin Triglycerides HDL Cholesterol Miscellaneous Test Crossmatch 09/09/17 09/09/17 09/09/17 00:24 03:37 03:37 WBC 33.5 H RBC 2.36 L Hgb 6.7 L Hct 20.9 L MCV MCH RDW 22.7 H Plt Count Lymph % (Auto) [place] % (Auto) [place] # Seg Neutrophils % Seg Neuts % (Manual) Lymphocytes % (Manual) Monocytes % (Manual) Nucleated RBC % Seg Neutrophils # Seg Neutrophils # Man Lymphocytes # (Manual) Monocytes # (Manual) Eosinophils # (Manual) Basophils # (Manual) PT INR POC ABG pH ABG pH POC ABG pCO2 POC ABG pO2 ABG pO2 ABG O2 Saturation ABG Base Excess ABG Hemoglobin Oxyhemoglobin Sodium 132 L Potassium Chloride 91.6 L Carbon Dioxide 21 L BUN 101 H Creatinine 2.6 H Glucose 156 H POC Glucose 182 H Calcium 8.3 L Phosphorus 5.90 H Magnesium 2.60 H Iron TIBC Ferritin Total Bilirubin AST ALT Alkaline Phosphatase Total Creatine Kinase Troponin T C-Reactive Protein Total Protein Albumin Triglycerides HDL Cholesterol Miscellaneous Test Crossmatch 09/09/17 09/09/17 09/09/17 05:29 12:03 18:05 WBC RBC Hgb Hct MCV MCH RDW Plt Count Lymph % (Auto) [place] % (Auto) [place] # Seg Neutrophils % Seg Neuts % (Manual) Lymphocytes % (Manual) Monocytes % (Manual) Nucleated RBC % Seg Neutrophils # Seg Neutrophils # Man Lymphocytes # (Manual) Monocytes # (Manual) Eosinophils # (Manual) Basophils # (Manual) PT INR POC ABG pH ABG pH POC ABG pCO2 POC ABG pO2 ABG pO2 ABG O2 Saturation ABG Base Excess ABG Hemoglobin Oxyhemoglobin Sodium Potassium Chloride Carbon Dioxide BUN Creatinine Glucose POC Glucose 168 H 143 H 173 H Calcium Phosphorus Magnesium Iron TIBC Ferritin Total Bilirubin AST ALT Alkaline Phosphatase Total Creatine Kinase Troponin T C-Reactive Protein Total Protein Albumin Triglycerides HDL Cholesterol Miscellaneous Test Crossmatch 09/09/17 09/09/17 09/10/17 23:30 Unknown 05:04 WBC RBC Hgb Hct MCV MCH RDW Plt Count Lymph % (Auto) [place] % (Auto) [place] # Seg Neutrophils % Seg Neuts % (Manual) Lymphocytes % (Manual) Monocytes % (Manual) Nucleated RBC % Seg Neutrophils # Seg Neutrophils # Man Lymphocytes # (Manual) Monocytes # (Manual) Eosinophils # (Manual) Basophils # (Manual) PT INR POC ABG pH ABG pH 7.323 L POC ABG pCO2 POC ABG pO2 ABG pO2 94.1 H ABG O2 Saturation ABG Base Excess -4.8 L ABG Hemoglobin 8.0 L Oxyhemoglobin 94.9 L Sodium Potassium Chloride Carbon Dioxide BUN Creatinine Glucose POC Glucose 212 H 155 H Calcium Phosphorus Magnesium Iron TIBC Ferritin Total Bilirubin AST ALT Alkaline Phosphatase Total Creatine Kinase Troponin T C-Reactive Protein Total Protein Albumin Triglycerides HDL Cholesterol Miscellaneous Test Crossmatch 09/10/17 09/10/17 09/10/17 07:00 09:55 12:22 WBC 24.7 H RBC 2.62 L Hgb 7.5 L Hct 22.5 L MCV MCH RDW 20.8 H Plt Count Lymph % (Auto) [place] % (Auto) [place] # Seg Neutrophils % Seg Neuts % (Manual) Lymphocytes % (Manual) Monocytes % (Manual) Nucleated RBC % Seg Neutrophils # Seg Neutrophils # Man Lymphocytes # (Manual) Monocytes # (Manual) Eosinophils # (Manual) Basophils # (Manual) PT INR POC ABG pH ABG pH POC ABG pCO2 POC ABG pO2 ABG pO2 ABG O2 Saturation ABG Base Excess ABG Hemoglobin Oxyhemoglobin Sodium Potassium Chloride 97.9 L Carbon Dioxide BUN 78 H Creatinine 2.0 H Glucose 126 H POC Glucose 183 H Calcium 8.2 L Phosphorus Magnesium Iron TIBC Ferritin Total Bilirubin AST ALT Alkaline Phosphatase Total Creatine Kinase Troponin T C-Reactive Protein Total Protein Albumin Triglycerides HDL Cholesterol Miscellaneous Test Crossmatch 09/11/17 09/11/17 09/11/17 00:08 03:50 05:28 WBC 21.6 H RBC 2.52 L Hgb 7.4 L Hct 22.2 L MCV MCH RDW 21.5 H Plt Count Lymph % (Auto) [place] % (Auto) [place] # Seg Neutrophils % Seg Neuts % (Manual) 92.0 H Lymphocytes % (Manual) 3.0 L Monocytes % (Manual) Nucleated RBC % Seg Neutrophils # Seg Neutrophils # Man 19.9 H Lymphocytes # (Manual) 0.6 L Monocytes # (Manual) Eosinophils # (Manual) Basophils # (Manual) PT INR POC ABG pH ABG pH POC ABG pCO2 POC ABG pO2 ABG pO2 ABG O2 Saturation ABG Base Excess ABG Hemoglobin Oxyhemoglobin Sodium Potassium Chloride Carbon Dioxide BUN Creatinine Glucose POC Glucose 213 H 181 H Calcium Phosphorus Magnesium Iron TIBC Ferritin Total Bilirubin AST ALT Alkaline Phosphatase Total Creatine Kinase Troponin T C-Reactive Protein Total Protein Albumin Triglycerides HDL Cholesterol Miscellaneous Test Crossmatch 09/11/17 09/11/17 09/11/17 11:55 17:56 23:12 WBC RBC Hgb Hct MCV MCH RDW Plt Count Lymph % (Auto) [place] % (Auto) [place] # Seg Neutrophils % Seg Neuts % (Manual) Lymphocytes % (Manual) Monocytes % (Manual) Nucleated RBC % Seg Neutrophils # Seg Neutrophils # Man Lymphocytes # (Manual) Monocytes # (Manual) Eosinophils # (Manual) Basophils # (Manual) PT INR POC ABG pH ABG pH POC ABG pCO2 POC ABG pO2 ABG pO2 ABG O2 Saturation ABG Base Excess ABG Hemoglobin Oxyhemoglobin Sodium Potassium Chloride Carbon Dioxide 21 L BUN 80 H Creatinine 2.1 H Glucose 170 H POC Glucose 277 H 206 H Calcium 8.0 L Phosphorus Magnesium Iron TIBC Ferritin Total Bilirubin AST ALT Alkaline Phosphatase Total Creatine Kinase Troponin T C-Reactive Protein Total Protein Albumin Triglycerides HDL Cholesterol Miscellaneous Test Crossmatch 09/11/17 09/12/17 09/12/17 23:36 05:25 05:25 WBC 17.4 H RBC 2.29 L Hgb 6.7 L Hct 20.4 L MCV MCH RDW 21.2 H Plt Count Lymph % (Auto) [place] % (Auto) [place] # Seg Neutrophils % Seg Neuts % (Manual) 79.0 H Lymphocytes % (Manual) 5.0 L Monocytes % (Manual) Nucleated RBC % 1.0 H Seg Neutrophils # Seg Neutrophils # Man 13.7 H Lymphocytes # (Manual) 0.9 L Monocytes # (Manual) 1.2 H Eosinophils # (Manual) Basophils # (Manual) PT INR POC ABG pH ABG pH POC ABG pCO2 POC ABG pO2 ABG pO2 ABG O2 Saturation ABG Base Excess ABG Hemoglobin Oxyhemoglobin Sodium Potassium Chloride Carbon Dioxide BUN Creatinine Glucose POC Glucose 190 H Calcium Phosphorus Magnesium Iron 22 L TIBC 81 L Ferritin Total Bilirubin AST ALT Alkaline Phosphatase Total Creatine Kinase Troponin T C-Reactive Protein Total Protein Albumin Triglycerides HDL Cholesterol Miscellaneous Test Crossmatch 09/12/17 09/12/17 09/12/17 05:25 05:36 09:14 WBC RBC Hgb Hct MCV MCH RDW Plt Count Lymph % (Auto) [place] % (Auto) [place] # Seg Neutrophils % Seg Neuts % (Manual) Lymphocytes % (Manual) Monocytes % (Manual) Nucleated RBC % Seg Neutrophils # Seg Neutrophils # Man Lymphocytes # (Manual) Monocytes # (Manual) Eosinophils # (Manual) Basophils # (Manual) PT INR POC ABG pH ABG pH POC ABG pCO2 POC ABG pO2 ABG pO2 ABG O2 Saturation ABG Base Excess ABG Hemoglobin Oxyhemoglobin Sodium Potassium Chloride Carbon Dioxide BUN Creatinine Glucose POC Glucose 141 H Calcium Phosphorus Magnesium Iron TIBC Ferritin > 2000.0 H Total Bilirubin AST ALT Alkaline Phosphatase Total Creatine Kinase Troponin T C-Reactive Protein Total Protein Albumin Triglycerides HDL Cholesterol Miscellaneous Test Crossmatch See Detail 09/12/17 09/12/17 09/12/17 11:18 15:22 17:18 WBC RBC Hgb 8.5 L Hct 25.4 L MCV MCH RDW Plt Count Lymph % (Auto) [place] % (Auto) [place] # Seg Neutrophils % Seg Neuts % (Manual) Lymphocytes % (Manual) Monocytes % (Manual) Nucleated RBC % Seg Neutrophils # Seg Neutrophils # Man Lymphocytes # (Manual) Monocytes # (Manual) Eosinophils # (Manual) Basophils # (Manual) PT INR POC ABG pH ABG pH POC ABG pCO2 POC ABG pO2 ABG pO2 ABG O2 Saturation ABG Base Excess ABG Hemoglobin Oxyhemoglobin Sodium Potassium Chloride Carbon Dioxide BUN Creatinine Glucose POC Glucose 262 H 193 H Calcium Phosphorus Magnesium Iron TIBC Ferritin Total Bilirubin AST ALT Alkaline Phosphatase Total Creatine Kinase Troponin T C-Reactive Protein Total Protein Albumin Triglycerides HDL Cholesterol Miscellaneous Test Crossmatch 09/13/17 09/13/17 09/13/17 00:05 06:25 11:36 WBC RBC Hgb Hct MCV MCH RDW Plt Count Lymph % (Auto) [place] % (Auto) [place] # Seg Neutrophils % Seg Neuts % (Manual) Lymphocytes % (Manual) Monocytes % (Manual) Nucleated RBC % Seg Neutrophils # Seg Neutrophils # Man Lymphocytes # (Manual) Monocytes # (Manual) Eosinophils # (Manual) Basophils # (Manual) PT INR POC ABG pH 7.347 L ABG pH POC ABG pCO2 34.3 L POC ABG pO2 134 H ABG pO2 ABG O2 Saturation ABG Base Excess ABG Hemoglobin Oxyhemoglobin Sodium Potassium Chloride Carbon Dioxide BUN Creatinine Glucose POC Glucose 235 H 286 H Calcium Phosphorus Magnesium Iron TIBC Ferritin Total Bilirubin AST ALT Alkaline Phosphatase Total Creatine Kinase Troponin T C-Reactive Protein Total Protein Albumin Triglycerides HDL Cholesterol Miscellaneous Test Crossmatch 09/13/17 09/13/17 09/13/17 11:56 17:25 23:18 WBC RBC Hgb Hct MCV MCH RDW Plt Count Lymph % (Auto) [place] % (Auto) [place] # Seg Neutrophils % Seg Neuts % (Manual) Lymphocytes % (Manual) Monocytes % (Manual) Nucleated RBC % Seg Neutrophils # Seg Neutrophils # Man Lymphocytes # (Manual) Monocytes # (Manual) Eosinophils # (Manual) Basophils # (Manual) PT INR POC ABG pH ABG pH POC ABG pCO2 POC ABG pO2 ABG pO2 ABG O2 Saturation ABG Base Excess ABG Hemoglobin Oxyhemoglobin Sodium Potassium Chloride Carbon Dioxide BUN Creatinine Glucose POC Glucose 318 H 278 H 230 H Calcium Phosphorus Magnesium Iron TIBC Ferritin Total Bilirubin AST ALT Alkaline Phosphatase Total Creatine Kinase Troponin T C-Reactive Protein Total Protein Albumin Triglycerides HDL Cholesterol Miscellaneous Test Crossmatch 09/13/17 09/13/17 09/13/17 Unknown Unknown Unknown WBC 15.6 H RBC 2.72 L Hgb 8.1 L Hct 23.9 L MCV MCH RDW 19.5 H Plt Count 137 L Lymph % (Auto) [place] % (Auto) [place] # Seg Neutrophils % Seg Neuts % (Manual) 73.0 H Lymphocytes % (Manual) 3.0 L Monocytes % (Manual) 19.0 H Nucleated RBC % 2.0 H Seg Neutrophils # Seg Neutrophils # Man 11.4 H Lymphocytes # (Manual) 0.5 L Monocytes # (Manual) 3.0 H Eosinophils # (Manual) Basophils # (Manual) PT INR POC ABG pH ABG pH POC ABG pCO2 POC ABG pO2 ABG pO2 ABG O2 Saturation ABG Base Excess ABG Hemoglobin Oxyhemoglobin Sodium Potassium Chloride Carbon Dioxide 19 L BUN 103 H Creatinine 2.6 H Glucose 173 H POC Glucose Calcium Phosphorus Magnesium Iron TIBC Ferritin Total Bilirubin AST ALT Alkaline Phosphatase Total Creatine Kinase Troponin T C-Reactive Protein Total Protein Albumin < 0.2 L Triglycerides HDL Cholesterol Miscellaneous Test Crossmatch 09/14/17 09/14/17 09/14/17 03:15 03:15 05:16 WBC 12.5 H RBC 2.55 L Hgb 7.6 L Hct 22.5 L MCV MCH RDW 19.8 H Plt Count 139 L Lymph % (Auto) [place] % (Auto) [place] # Seg Neutrophils % Seg Neuts % (Manual) Lymphocytes % (Manual) Monocytes % (Manual) Nucleated RBC % Seg Neutrophils # Seg Neutrophils # Man Lymphocytes # (Manual) Monocytes # (Manual) Eosinophils # (Manual) Basophils # (Manual) PT INR POC ABG pH ABG pH POC ABG pCO2 POC ABG pO2 ABG pO2 ABG O2 Saturation ABG Base Excess ABG Hemoglobin Oxyhemoglobin Sodium Potassium Chloride Carbon Dioxide BUN 75 H Creatinine 2.1 H Glucose 217 H POC Glucose 283 H Calcium Phosphorus 2.20 L D Magnesium Iron TIBC Ferritin Total Bilirubin AST ALT Alkaline Phosphatase Total Creatine Kinase Troponin T C-Reactive Protein Total Protein Albumin Triglycerides HDL Cholesterol Miscellaneous Test Crossmatch 09/14/17 09/14/17 09/15/17 12:11 17:47 00:03 WBC RBC Hgb Hct MCV MCH RDW Plt Count Lymph % (Auto) [place] % (Auto) [place] # Seg Neutrophils % Seg Neuts % (Manual) Lymphocytes % (Manual) Monocytes % (Manual) Nucleated RBC % Seg Neutrophils # Seg Neutrophils # Man Lymphocytes # (Manual) Monocytes # (Manual) Eosinophils # (Manual) Basophils # (Manual) PT INR POC ABG pH ABG pH POC ABG pCO2 POC ABG pO2 ABG pO2 ABG O2 Saturation ABG Base Excess ABG Hemoglobin Oxyhemoglobin Sodium Potassium Chloride Carbon Dioxide BUN Creatinine Glucose POC Glucose 251 H 289 H 229 H Calcium Phosphorus Magnesium Iron TIBC Ferritin Total Bilirubin AST ALT Alkaline Phosphatase Total Creatine Kinase Troponin T C-Reactive Protein Total Protein Albumin Triglycerides HDL Cholesterol Miscellaneous Test Crossmatch 09/15/17 09/15/17 09/15/17 05:00 05:00 05:30 WBC 11.7 H RBC 2.50 L Hgb 7.4 L Hct 22.7 L MCV MCH RDW 20.5 H Plt Count Lymph % (Auto) [place] % (Auto) [place] # Seg Neutrophils % Seg Neuts % (Manual) Lymphocytes % (Manual) 11.0 L Monocytes % (Manual) 11.0 H Nucleated RBC % Seg Neutrophils # Seg Neutrophils # Man Lymphocytes # (Manual) Monocytes # (Manual) 1.3 H Eosinophils # (Manual) Basophils # (Manual) PT INR POC ABG pH ABG pH POC ABG pCO2 POC ABG pO2 ABG pO2 ABG O2 Saturation ABG Base Excess ABG Hemoglobin Oxyhemoglobin Sodium Potassium Chloride 97.0 L Carbon Dioxide 21 L BUN 94 H Creatinine 2.4 H Glucose 194 H POC Glucose 225 H Calcium Phosphorus Magnesium Iron TIBC Ferritin Total Bilirubin AST ALT Alkaline Phosphatase Total Creatine Kinase Troponin T C-Reactive Protein Total Protein Albumin Triglycerides HDL Cholesterol Miscellaneous Test Crossmatch 09/15/17 09/15/17 09/15/17 07:48 11:38 12:45 WBC RBC 1.93 L Hgb 5.7 L* Hct 17.1 L* MCV MCH RDW 20.2 H Plt Count 125 L Lymph % (Auto) [place] % (Auto) [place] # Seg Neutrophils % Seg Neuts % (Manual) 79.0 H Lymphocytes % (Manual) 8.0 L Monocytes % (Manual) Nucleated RBC % Seg Neutrophils # Seg Neutrophils # Man Lymphocytes # (Manual) 0.8 L Monocytes # (Manual) Eosinophils # (Manual) Basophils # (Manual) PT INR POC ABG pH ABG pH POC ABG pCO2 POC ABG pO2 ABG pO2 ABG O2 Saturation ABG Base Excess ABG Hemoglobin Oxyhemoglobin Sodium Potassium Chloride Carbon Dioxide BUN Creatinine Glucose POC Glucose 245 H 253 H Calcium Phosphorus Magnesium Iron TIBC Ferritin Total Bilirubin AST ALT Alkaline Phosphatase Total Creatine Kinase Troponin T C-Reactive Protein Total Protein Albumin Triglycerides HDL Cholesterol Miscellaneous Test Crossmatch 09/15/17 09/15/17 09/15/17 12:45 12:45 22:25 WBC 19.6 H RBC 3.32 L Hgb 10.0 L D Hct 29.3 L D MCV MCH RDW 17.0 H Plt Count 123 L Lymph % (Auto) [place] % (Auto) [place] # Seg Neutrophils % Seg Neuts % (Manual) Lymphocytes % (Manual) 12.0 L Monocytes % (Manual) Nucleated RBC % 5.0 H Seg Neutrophils # Seg Neutrophils # Man 11.0 H Lymphocytes # (Manual) Monocytes # (Manual) 1.2 H Eosinophils # (Manual) Basophils # (Manual) PT 15.4 H INR 1.16 H POC ABG pH ABG pH POC ABG pCO2 POC ABG pO2 ABG pO2 ABG O2 Saturation ABG Base Excess ABG Hemoglobin Oxyhemoglobin Sodium Potassium Chloride Carbon Dioxide BUN Creatinine Glucose POC Glucose Calcium Phosphorus Magnesium Iron TIBC Ferritin Total Bilirubin AST ALT Alkaline Phosphatase Total Creatine Kinase Troponin T C-Reactive Protein Total Protein Albumin Triglycerides HDL Cholesterol Miscellaneous Test Crossmatch See Detail 09/15/17 09/15/17 09/16/17 22:25 23:38 01:26 WBC RBC Hgb Hct MCV MCH RDW Plt Count Lymph % (Auto) [place] % (Auto) [place] # Seg Neutrophils % Seg Neuts % (Manual) Lymphocytes % (Manual) Monocytes % (Manual) Nucleated RBC % Seg Neutrophils # Seg Neutrophils # Man Lymphocytes # (Manual) Monocytes # (Manual) Eosinophils # (Manual) Basophils # (Manual) PT INR POC ABG pH ABG pH POC ABG pCO2 POC ABG pO2 ABG pO2 ABG O2 Saturation ABG Base Excess ABG Hemoglobin Oxyhemoglobin Sodium Potassium Chloride Carbon Dioxide 17 L BUN 100 H Creatinine 2.6 H Glucose POC Glucose 58 L 132 H Calcium 8.3 L Phosphorus Magnesium 1.60 L Iron TIBC Ferritin Total Bilirubin 2.80 H AST 118 H ALT Alkaline Phosphatase 316 H Total Creatine Kinase Troponin T C-Reactive Protein Total Protein 4.0 L Albumin 1.8 L Triglycerides HDL Cholesterol Miscellaneous Test Crossmatch 09/16/17 09/16/17 09/16/17 05:30 05:30 05:54 WBC 24.6 H RBC 3.22 L Hgb 9.8 L Hct 28.6 L MCV MCH RDW 17.4 H Plt Count 127 L Lymph % (Auto) [place] % (Auto) [place] # Seg Neutrophils % Seg Neuts % (Manual) Lymphocytes % (Manual) Monocytes % (Manual) Nucleated RBC % Seg Neutrophils # Seg Neutrophils # Man Lymphocytes # (Manual) Monocytes # (Manual) Eosinophils # (Manual) Basophils # (Manual) PT INR POC ABG pH ABG pH POC ABG pCO2 POC ABG pO2 ABG pO2 ABG O2 Saturation ABG Base Excess ABG Hemoglobin Oxyhemoglobin Sodium Potassium Chloride Carbon Dioxide 18 L BUN 109 H Creatinine 2.5 H Glucose 140 H POC Glucose 154 H Calcium Phosphorus 4.80 H Magnesium Iron TIBC Ferritin Total Bilirubin 2.40 H AST 90 H ALT Alkaline Phosphatase 298 H Total Creatine Kinase 20 L Troponin T C-Reactive Protein Total Protein 4.1 L Albumin 1.8 L Triglycerides HDL Cholesterol Miscellaneous Test Crossmatch 09/16/17 09/16/17 09/16/17 11:49 17:04 23:18 WBC RBC Hgb Hct MCV MCH RDW Plt Count Lymph % (Auto) [place] % (Auto) [place] # Seg Neutrophils % Seg Neuts % (Manual) Lymphocytes % (Manual) Monocytes % (Manual) Nucleated RBC % Seg Neutrophils # Seg Neutrophils # Man Lymphocytes # (Manual) Monocytes # (Manual) Eosinophils # (Manual) Basophils # (Manual) PT INR POC ABG pH ABG pH POC ABG pCO2 POC ABG pO2 ABG pO2 ABG O2 Saturation ABG Base Excess ABG Hemoglobin Oxyhemoglobin Sodium Potassium Chloride Carbon Dioxide BUN Creatinine Glucose POC Glucose 167 H 156 H 162 H Calcium Phosphorus Magnesium Iron TIBC Ferritin Total Bilirubin AST ALT Alkaline Phosphatase Total Creatine Kinase Troponin T C-Reactive Protein Total Protein Albumin Triglycerides HDL Cholesterol Miscellaneous Test Crossmatch 09/17/17 09/17/17 09/17/17 05:27 06:10 06:10 WBC 34.6 H RBC 2.75 L Hgb 8.4 L Hct 24.8 L MCV MCH RDW 18.3 H Plt Count Lymph % (Auto) [place] % (Auto) [place] # Seg Neutrophils % Seg Neuts % (Manual) 77.0 H Lymphocytes % (Manual) 5.0 L Monocytes % (Manual) Nucleated RBC % 2.0 H Seg Neutrophils # Seg Neutrophils # Man 26.6 H Lymphocytes # (Manual) Monocytes # (Manual) 2.4 H Eosinophils # (Manual) Basophils # (Manual) PT INR POC ABG pH ABG pH POC ABG pCO2 POC ABG pO2 ABG pO2 ABG O2 Saturation ABG Base Excess ABG Hemoglobin Oxyhemoglobin Sodium Potassium Chloride Carbon Dioxide BUN 82 H Creatinine 2.1 H Glucose 252 H POC Glucose 243 H Calcium 8.3 L Phosphorus Magnesium Iron TIBC Ferritin Total Bilirubin AST ALT Alkaline Phosphatase Total Creatine Kinase Troponin T C-Reactive Protein Total Protein Albumin Triglycerides HDL Cholesterol Miscellaneous Test Crossmatch 09/17/17 09/17/17 09/18/17 11:42 17:12 00:08 WBC RBC Hgb Hct MCV MCH RDW Plt Count Lymph % (Auto) [place] % (Auto) [place] # Seg Neutrophils % Seg Neuts % (Manual) Lymphocytes % (Manual) Monocytes % (Manual) Nucleated RBC % Seg Neutrophils # Seg Neutrophils # Man Lymphocytes # (Manual) Monocytes # (Manual) Eosinophils # (Manual) Basophils # (Manual) PT INR POC ABG pH ABG pH POC ABG pCO2 POC ABG pO2 ABG pO2 ABG O2 Saturation ABG Base Excess ABG Hemoglobin Oxyhemoglobin Sodium Potassium Chloride Carbon Dioxide BUN Creatinine Glucose POC Glucose 232 H 309 H 275 H Calcium Phosphorus Magnesium Iron TIBC Ferritin Total Bilirubin AST ALT Alkaline Phosphatase Total Creatine Kinase Troponin T C-Reactive Protein Total Protein Albumin Triglycerides HDL Cholesterol Miscellaneous Test Crossmatch 09/18/17 09/18/17 09/18/17 05:10 05:10 05:23 WBC 24.4 H RBC 2.57 L Hgb 7.8 L Hct 23.2 L MCV MCH RDW 19.5 H Plt Count Lymph % (Auto) [place] % (Auto) [place] # Seg Neutrophils % Seg Neuts % (Manual) 78.0 H Lymphocytes % (Manual) 6.0 L Monocytes % (Manual) Nucleated RBC % 2.0 H Seg Neutrophils # Seg Neutrophils # Man 19.0 H Lymphocytes # (Manual) Monocytes # (Manual) Eosinophils # (Manual) Basophils # (Manual) PT INR POC ABG pH ABG pH POC ABG pCO2 POC ABG pO2 ABG pO2 ABG O2 Saturation ABG Base Excess ABG Hemoglobin Oxyhemoglobin Sodium Potassium Chloride Carbon Dioxide BUN 103 H Creatinine 2.8 H Glucose 173 H POC Glucose 224 H Calcium Phosphorus Magnesium Iron TIBC Ferritin Total Bilirubin AST ALT Alkaline Phosphatase Total Creatine Kinase Troponin T C-Reactive Protein Total Protein Albumin Triglycerides HDL Cholesterol Miscellaneous Test Crossmatch 09/18/17 09/18/17 09/18/17 13:59 18:35 23:19 WBC RBC Hgb Hct MCV MCH RDW Plt Count Lymph % (Auto) [place] % (Auto) [place] # Seg Neutrophils % Seg Neuts % (Manual) Lymphocytes % (Manual) Monocytes % (Manual) Nucleated RBC % Seg Neutrophils # Seg Neutrophils # Man Lymphocytes # (Manual) Monocytes # (Manual) Eosinophils # (Manual) Basophils # (Manual) PT INR POC ABG pH ABG pH POC ABG pCO2 POC ABG pO2 ABG pO2 ABG O2 Saturation ABG Base Excess ABG Hemoglobin Oxyhemoglobin Sodium Potassium Chloride Carbon Dioxide BUN Creatinine Glucose POC Glucose 268 H 220 H 188 H Calcium Phosphorus Magnesium Iron TIBC Ferritin Total Bilirubin AST ALT Alkaline Phosphatase Total Creatine Kinase Troponin T C-Reactive Protein Total Protein Albumin Triglycerides HDL Cholesterol Miscellaneous Test Crossmatch 09/19/17 09/19/17 09/19/17 05:45 06:00 11:41 WBC 17.6 H RBC 2.57 L Hgb 7.9 L Hct 23.2 L MCV MCH RDW 19.0 H Plt Count Lymph % (Auto) [place] % (Auto) [place] # Seg Neutrophils % Seg Neuts % (Manual) Lymphocytes % (Manual) 9.0 L Monocytes % (Manual) Nucleated RBC % Seg Neutrophils # Seg Neutrophils # Man 11.4 H Lymphocytes # (Manual) Monocytes # (Manual) 0.9 H Eosinophils # (Manual) Basophils # (Manual) PT INR POC ABG pH ABG pH POC ABG pCO2 POC ABG pO2 ABG pO2 ABG O2 Saturation ABG Base Excess ABG Hemoglobin Oxyhemoglobin Sodium Potassium Chloride Carbon Dioxide BUN Creatinine Glucose POC Glucose 178 H 126 H Calcium Phosphorus Magnesium Iron TIBC Ferritin Total Bilirubin AST ALT Alkaline Phosphatase Total Creatine Kinase Troponin T C-Reactive Protein Total Protein Albumin Triglycerides HDL Cholesterol Miscellaneous Test Crossmatch 09/19/17 09/19/17 09/20/17 17:08 23:46 04:46 WBC RBC Hgb Hct MCV MCH RDW Plt Count Lymph % (Auto) [place] % (Auto) [place] # Seg Neutrophils % Seg Neuts % (Manual) Lymphocytes % (Manual) Monocytes % (Manual) Nucleated RBC % Seg Neutrophils # Seg Neutrophils # Man Lymphocytes # (Manual) Monocytes # (Manual) Eosinophils # (Manual) Basophils # (Manual) PT INR POC ABG pH ABG pH POC ABG pCO2 POC ABG pO2 ABG pO2 ABG O2 Saturation ABG Base Excess ABG Hemoglobin Oxyhemoglobin Sodium Potassium 5.2 H D Chloride 97.4 L Carbon Dioxide 20 L BUN 98 H Creatinine 2.4 H Glucose 187 H POC Glucose 263 H 161 H Calcium Phosphorus Magnesium Iron TIBC Ferritin Total Bilirubin AST ALT Alkaline Phosphatase Total Creatine Kinase Troponin T C-Reactive Protein Total Protein Albumin Triglycerides HDL Cholesterol Miscellaneous Test Crossmatch 09/20/17 09/20/17 09/20/17 05:38 11:36 11:41 WBC 24.5 H RBC 2.84 L Hgb 8.2 L Hct 26.2 L MCV MCH RDW 20.0 H Plt Count 470 H Lymph % (Auto) [place] % (Auto) [place] # Seg Neutrophils % Seg Neuts % (Manual) Lymphocytes % (Manual) Monocytes % (Manual) Nucleated RBC % Seg Neutrophils # Seg Neutrophils # Man Lymphocytes # (Manual) Monocytes # (Manual) Eosinophils # (Manual) Basophils # (Manual) PT INR POC ABG pH ABG pH POC ABG pCO2 POC ABG pO2 ABG pO2 ABG O2 Saturation ABG Base Excess ABG Hemoglobin Oxyhemoglobin Sodium Potassium Chloride Carbon Dioxide BUN Creatinine Glucose POC Glucose 215 H 220 H Calcium Phosphorus Magnesium Iron TIBC Ferritin Total Bilirubin AST ALT Alkaline Phosphatase Total Creatine Kinase Troponin T C-Reactive Protein Total Protein Albumin Triglycerides HDL Cholesterol Miscellaneous Test Crossmatch 09/20/17 09/21/17 09/21/17 17:45 00:51 04:00 WBC RBC Hgb Hct MCV MCH RDW Plt Count Lymph % (Auto) [place] % (Auto) [place] # Seg Neutrophils % Seg Neuts % (Manual) Lymphocytes % (Manual) Monocytes % (Manual) Nucleated RBC % Seg Neutrophils # Seg Neutrophils # Man Lymphocytes # (Manual) Monocytes # (Manual) Eosinophils # (Manual) Basophils # (Manual) PT INR POC ABG pH ABG pH POC ABG pCO2 POC ABG pO2 ABG pO2 ABG O2 Saturation ABG Base Excess ABG Hemoglobin Oxyhemoglobin Sodium Potassium 3.2 L D Chloride 96.4 L Carbon Dioxide BUN 63 H Creatinine 1.8 H Glucose 204 H POC Glucose 122 H 137 H Calcium 8.3 L Phosphorus 2.10 L D Magnesium 1.50 L Iron TIBC Ferritin Total Bilirubin AST ALT Alkaline Phosphatase Total Creatine Kinase Troponin T C-Reactive Protein Total Protein Albumin Triglycerides HDL Cholesterol Miscellaneous Test Crossmatch 09/21/17 09/21/17 09/21/17 05:45 08:30 11:50 WBC 27.5 H RBC 2.52 L Hgb 7.7 L Hct 22.8 L MCV MCH RDW 19.2 H Plt Count 457 H Lymph % (Auto) [place] % (Auto) [place] # Seg Neutrophils % Seg Neuts % (Manual) Lymphocytes % (Manual) Monocytes % (Manual) Nucleated RBC % Seg Neutrophils # Seg Neutrophils # Man Lymphocytes # (Manual) Monocytes # (Manual) Eosinophils # (Manual) Basophils # (Manual) PT INR POC ABG pH ABG pH POC ABG pCO2 POC ABG pO2 ABG pO2 ABG O2 Saturation ABG Base Excess ABG Hemoglobin Oxyhemoglobin Sodium Potassium Chloride Carbon Dioxide BUN Creatinine Glucose POC Glucose 243 H Calcium Phosphorus Magnesium Iron TIBC Ferritin Total Bilirubin AST ALT Alkaline Phosphatase Total Creatine Kinase Troponin T C-Reactive Protein Total Protein Albumin Triglycerides HDL Cholesterol Miscellaneous Test Crossmatch See Detail 09/21/17 09/21/17 09/22/17 13:03 16:39 00:09 WBC RBC Hgb Hct MCV MCH RDW Plt Count Lymph % (Auto) [place] % (Auto) [place] # Seg Neutrophils % Seg Neuts % (Manual) Lymphocytes % (Manual) Monocytes % (Manual) Nucleated RBC % Seg Neutrophils # Seg Neutrophils # Man Lymphocytes # (Manual) Monocytes # (Manual) Eosinophils # (Manual) Basophils # (Manual) PT INR POC ABG pH ABG pH POC ABG pCO2 POC ABG pO2 ABG pO2 ABG O2 Saturation ABG Base Excess ABG Hemoglobin Oxyhemoglobin Sodium Potassium Chloride Carbon Dioxide BUN Creatinine Glucose POC Glucose 271 H 160 H 191 H Calcium Phosphorus Magnesium Iron TIBC Ferritin Total Bilirubin AST ALT Alkaline Phosphatase Total Creatine Kinase Troponin T C-Reactive Protein Total Protein Albumin Triglycerides HDL Cholesterol Miscellaneous Test Crossmatch 09/22/17 09/22/17 09/22/17 03:37 05:40 07:35 WBC 29.7 H RBC 2.71 L Hgb 8.1 L Hct 24.1 L MCV MCH RDW 19.6 H Plt Count 491 H Lymph % (Auto) [place] % (Auto) [place] # Seg Neutrophils % Seg Neuts % (Manual) 70.5 H Lymphocytes % (Manual) 12.5 L Monocytes % (Manual) 10.0 H Nucleated RBC % 2.0 H Seg Neutrophils # Seg Neutrophils # Man 20.9 H Lymphocytes # (Manual) Monocytes # (Manual) 3.0 H Eosinophils # (Manual) Basophils # (Manual) PT INR POC ABG pH ABG pH POC ABG pCO2 POC ABG pO2 ABG pO2 ABG O2 Saturation ABG Base Excess ABG Hemoglobin Oxyhemoglobin Sodium Potassium 3.0 L Chloride 95.9 L Carbon Dioxide BUN 74 H Creatinine 2.1 H Glucose 126 H POC Glucose 150 H Calcium Phosphorus 2.10 L Magnesium 1.40 L Iron TIBC Ferritin Total Bilirubin AST ALT Alkaline Phosphatase 311 H Total Creatine Kinase Troponin T C-Reactive Protein Total Protein 4.4 L Albumin 2.0 L Triglycerides HDL Cholesterol Miscellaneous Test Crossmatch 09/22/17 09/23/17 09/23/17 12:20 05:02 05:02 WBC 37.5 H RBC 2.54 L Hgb 7.3 L Hct 22.9 L MCV MCH RDW 19.4 H Plt Count 471 H Lymph % (Auto) [place] % (Auto) [place] # Seg Neutrophils % Seg Neuts % (Manual) Lymphocytes % (Manual) 8.0 L Monocytes % (Manual) Nucleated RBC % 1.0 H Seg Neutrophils # Seg Neutrophils # Man 15.0 H Lymphocytes # (Manual) Monocytes # (Manual) 1.9 H Eosinophils # (Manual) Basophils # (Manual) PT INR POC ABG pH ABG pH POC ABG pCO2 POC ABG pO2 ABG pO2 ABG O2 Saturation ABG Base Excess ABG Hemoglobin Oxyhemoglobin Sodium 136 L Potassium 3.0 L Chloride 93.8 L Carbon Dioxide BUN 99 H Creatinine 2.7 H Glucose POC Glucose 106 H Calcium 8.2 L Phosphorus 2.40 L Magnesium Iron TIBC Ferritin Total Bilirubin AST ALT Alkaline Phosphatase Total Creatine Kinase Troponin T C-Reactive Protein Total Protein Albumin Triglycerides HDL Cholesterol Miscellaneous Test Crossmatch 09/23/17 09/23/17 09/23/17 05:39 11:21 18:19 WBC RBC Hgb Hct MCV MCH RDW Plt Count Lymph % (Auto) [place] % (Auto) [place] # Seg Neutrophils % Seg Neuts % (Manual) Lymphocytes % (Manual) Monocytes % (Manual) Nucleated RBC % Seg Neutrophils # Seg Neutrophils # Man Lymphocytes # (Manual) Monocytes # (Manual) Eosinophils # (Manual) Basophils # (Manual) PT INR POC ABG pH ABG pH POC ABG pCO2 POC ABG pO2 ABG pO2 ABG O2 Saturation ABG Base Excess ABG Hemoglobin Oxyhemoglobin Sodium Potassium Chloride Carbon Dioxide BUN Creatinine Glucose POC Glucose 118 H 130 H 189 H Calcium Phosphorus Magnesium Iron TIBC Ferritin Total Bilirubin AST ALT Alkaline Phosphatase Total Creatine Kinase Troponin T C-Reactive Protein Total Protein Albumin Triglycerides HDL Cholesterol Miscellaneous Test Crossmatch 09/23/17 09/24/17 09/24/17 23:55 04:00 04:00 WBC 37.8 H RBC 2.76 L Hgb 8.1 L Hct 24.8 L MCV MCH RDW 19.8 H Plt Count 539 H Lymph % (Auto) [place] % (Auto) [place] # Seg Neutrophils % Seg Neuts % (Manual) Lymphocytes % (Manual) 4.0 L Monocytes % (Manual) Nucleated RBC % 6.0 H Seg Neutrophils # Seg Neutrophils # Man 19.3 H Lymphocytes # (Manual) Monocytes # (Manual) 1.5 H Eosinophils # (Manual) Basophils # (Manual) 0.4 H PT INR POC ABG pH ABG pH POC ABG pCO2 POC ABG pO2 ABG pO2 ABG O2 Saturation ABG Base Excess ABG Hemoglobin Oxyhemoglobin Sodium Potassium 3.5 L Chloride 95.2 L Carbon Dioxide BUN 67 H Creatinine 1.9 H Glucose 140 H POC Glucose 120 H Calcium 8.2 L Phosphorus 2.00 L Magnesium Iron TIBC Ferritin Total Bilirubin AST ALT Alkaline Phosphatase Total Creatine Kinase Troponin T C-Reactive Protein Total Protein Albumin Triglycerides HDL Cholesterol Miscellaneous Test Crossmatch 09/24/17 09/24/17 09/24/17 04:00 05:33 12:16 WBC RBC Hgb Hct MCV MCH RDW Plt Count Lymph % (Auto) [place] % (Auto) [place] # Seg Neutrophils % Seg Neuts % (Manual) Lymphocytes % (Manual) Monocytes % (Manual) Nucleated RBC % Seg Neutrophils # Seg Neutrophils # Man Lymphocytes # (Manual) Monocytes # (Manual) Eosinophils # (Manual) Basophils # (Manual) PT INR POC ABG pH ABG pH POC ABG pCO2 POC ABG pO2 ABG pO2 ABG O2 Saturation ABG Base Excess ABG Hemoglobin Oxyhemoglobin Sodium Potassium Chloride Carbon Dioxide BUN Creatinine Glucose POC Glucose 178 H 262 H Calcium Phosphorus Magnesium Iron TIBC Ferritin Total Bilirubin AST ALT Alkaline Phosphatase Total Creatine Kinase Troponin T C-Reactive Protein Total Protein Albumin Triglycerides HDL Cholesterol Miscellaneous Test Crossmatch See Detail Chest x-ray: report reviewed, image reviewed (essentially clear lungs)
[2017-09-24] MEDS ORDERED: BACITRACIN ONE (13:45)
[2017-09-24] MEDS ORDERED: NACL ONE (13:46)
[2017-09-24] MEDS ORDERED: NACL IRRIGATION ONE (13:55)
[2017-09-24] MEDS ORDERED: BACITRACIN IR ONE (13:55)
[2017-09-24] MEDS ORDERED: VERSED IV ONE (14:51)
[2017-09-24] MEDS ORDERED: NACL 0.9% IV ONE (15:05)
[2017-09-24] MEDS ORDERED: DDAVP IV ONE (15:05)
[2017-09-24] MEDS ORDERED: VERSED ONE (15:19)
[2017-09-24] MEDS ORDERED: NACL 0.9% 1000 ML 1,000 ML ONE (15:21)
[2017-09-24] MEDS ORDERED: NEO SYNEPHRINE/NS Syringe(OR USE) IV ONE (16:00)
[2017-09-24] MEDS ORDERED: ZOFRAN ONE (16:07)
[2017-09-24] MEDS ORDERED: NACL 0.9% IR ONE (16:10)
[2017-09-24] MEDS: FLAGYL 500 MG/100 ML 500 MG/100 ML BAG IV SCH ×2 (18:01→21:01)
--- NOTE | 2017-09-24 18:14 | Operative Report ---
Operative Report Operative Report: [id number] dication # 09/24/17 PROCEDURE: EX LAP WITH ABDOMINAL WASHOUT AND PLACEMENT OF BIOLOGIC MESH AND PROXIMAL ASPECT OF MIDLINE WOUND, CLOSURE OF SMALL BOWEL ENTEROTOMY SURGEON: ALEN NOGUERA MD ASSIST : JARETH PEÑA MD COMPLICATIONS: NONE ANESTHESIA: GENERAL FINDINGS: PINPOINT LEAK OF SUCCUS FROM SMALL BOWEL ENTEROTOMY SPECIMENS: NONE
[2017-09-24] MEDS ORDERED: TPN ADULT 1,800 ML IV SCH (20:00)
--- NOTE | 2017-09-24 21:06 | Operative Report ---
SURGEON: Carla Chamorro MD. MICROBIOLOGY LABORATORY MANAGER: Dr. Tracy Marley. PROCEDURE PERFORMED: Exploratory laparotomy with abdominal washout, closure of a small bowel enterotomy. Abdominal wound closure with Veritas biologic mesh. ANESTHESIA: General via the tracheostomy. PREOPERATIVE DIAGNOSIS: Peritonitis. POSTOPERATIVE DIAGNOSIS: Small bowel enterotomy with peritonitis. COMPLICATIONS: None. ESTIMATED BLOOD LOSS: Less than 100 mL. FINDINGS: Leakage from the suture holes from previous repair of enterotomy of the small bowel. INDICATIONS: The patient is a 62-year-old female with a complicated hospital stay and surgical course where she has had several operations for abdominal sepsis or wound dehiscence. She had a change in her fluid draining from her midline incision several days ago which progressed to the point of appearing more consistent with enteric contents versus just abscess fluid. She was taken to the OR for abdominal washout. Her family signed informed consent. DESCRIPTION OF PROCEDURE: The patient was brought to OR suite and laid in supine position. Bilateral lower extremities SCDs are placed. General anesthesia was performed via her tracheostomy tube. The patient's abdomen was prepped and draped in sterile fashion. The midline sutures were then taken down to the external retention sutures as well as fascial sutures. She was noted to be dehisced for the third time at the proximal third of her wound with the sutures being intact, but her fascia is soft and friable and the sutures were pulling through. Also towards the anterior portion of her wound close to her costal margins of which there is suboptimal purchase of the fascia in that area and each time the patient dehisced is noticed to be less and less healthy viable fascial tissue. Her abdomen was opened. The purulent fluid was suctioned out of abdominal cavity. There was noted to be drainage of some enteric contents from a previous pinpoint stitch from a less than 0.5 cm enterotomy from her last procedure, her tissues were draining around the suture repair. Her small bowel was matted together and the portion of the bowel had been mobilized for formal resection. Also of concern was that the anastomosis would not hold. At this time, it was decided to oversew past the boundaries of the enterotomy for a more secure repair with a 3-0 silk. The repair appeared intact with no further leakage of enteric contents from this area. The abdomen was then copiously irrigated with normal saline infused with bacitracin antibiotic. After this was performed, the fascia was then undermined on both sides to give more purchase for closure. The superior aspect of the wound by the costal margin was noted to be minimal. Good fascial tissue to get adequate bites. At this time, we decided to use biologic mesh Veritas. A 25 x 12 piece of mesh was secured with 0 Vicryl at the apex and then along the sides and were parachuted, and starting from the inferior border of the incision using a looped #1 PDS, the abdominal wall was easily closed up to the point of tension, which is the proximal third of the wound. Once this was complete, the biologic mesh was then tied down and secured to the proximal portion of the wound and the fascia was reapproximated best as possible over the biologic mesh to act as a barrier to the mesh. External retention sutures using 0 nylon were placed transmural from the peritoneum up to the skin. Internal retention stitches using 0 Ethibond were used intermittently in between the running PDS. The subcutaneous tissue was then irrigated. The external retention sutures were secured down and Kerlix gauze soaked in Betadine was then placed in between the gaps of the external retention sutures. She has a colostomy which was placed at the last procedure. It was noted that again due to her poor tissue integrity, the sutures holding the colon to the skin were . The colostomy was resecured in the areas that appeared to be disintegrating. The colostomy appliance was placed on the midline wound was then sterilely dressed. Of note, a drain was placed in the pelvis exiting out the left side and the G-tube and previous MERVIN drain were resecured as well. The patient was awoken and taken to the recovery area in stable condition. All counts were correct. JOB# [id number] MARTHA/ISMAEL
--- NOTE | 2017-09-24 21:19 | Progress Note ---
Assessment and Plan - Patient Problems (1) Leukocytosis Current Visit: Yes Status: Acute Qualifiers: Leukocytosis type: L Plan to address problem: See notes above. make sure that PD access is clean also. see notes. Probably infection from the infected PD catheter. improving. back up again. up/down continue to monitor. it continuos to rise. still high. improved. Back up. Now improving again. still in the same range as yesterday.. worse today. 37,000 (2) Anemia Current Visit: Yes Status: Acute Qualifiers: Anemia type: A Iron deficiency anemia type: I Vitamin B12 deficiency anemia type: V Folate deficiency anemia type: F Bone marrow failure anemia type: B Hemolytic anemia type: H Other causes of anemia: O Chronic kidney disease stage: C Plan to address problem: see notes , monitor labs,. see notes above. continue to monitor labs with you. blood transfusion. S/P replacement transfusion. fair. s/p 1unit transfusion. see notes. Still at 7.4 6.9, scheduled for replacement. Fairly stable at this time. continue to monitor. If less, or equal to 7.0, will need replacement transfusion, with HD. Fair at this time. (3) Acute respiratory failure Current Visit: Yes Status: Acute Qualifiers: Respiratory failure complication: R Plan to address problem: follow pulm. Subjective Date of service: 09/24/17 Principal diagnosis: respiratory failure, sepsis, shock rectal bleeding Interval history: Patient seen today/examined, labs reviewed, case d/w she, and family.complaints of abdominal pain. Patient resting in bed in the ICU, post vascular procedure. labs reviewed, Reactive thrombocytosis, anemia of CD, leukocytosis from infection vs inflamatory process. Patient seen/examined, in bed in the ICU, on the vent post surgery.Labs reviewed , notes reviewed. will continue to monitor labs/patient with you. Replacement transfusion, if /when indicated. patient seen/examined, SBP75, on pressors., lethargic, on the vent, labs reviewed, wbc 39,000 Patient seen/examined, case reviewed, d/w her sister at the bed side. Patient seen/examined, labs reviewed, notes reviewed. severe septic shock from infected PD catheter The high wbc is all infection related. H?H low, and may get replacement transfusion with the next HD. Prognosis remain quite poor. Patient seen/examined, extubated, now on V Mask. labs reviewed. patient seen/examined, resting in bed, still some what lethargic . labs reviewed. Patient seen/examined, resting in bed., some difficulty with breathing./ lethargic. patient seen/examined, resting in bed, looked much better labs reviewed, and fair over all. Patient seen/examined, resting in bed, labs reviewed, case d/w her. Patient seen/examined, resting in bed on BIPAP., labs reviewed. patient seen/examined, resting in bed, on Bipap.labs reviewed, fairly stable. Patient seen today, resting in bed, labs reviewed, H/H low, and transfusion already ordered. Patient seen/examined, resting in bed, transferred back to the unit, due to resp failure. She is now on venting mask. had blood replacement done. Patient seen/examined in the ICU.labs reviewed. patient intubated this am. patient resting in bed.no new issues. Patient seen/examined in the ICU, on vent,Not readily responsive. patient seen, resting in bed, no new cbc ready.will order for today. Patient seen, resting in vent, labs reviewed.notes reviewed also. patient seen/examined, resting on vent, had HD yesterday, and today., labs reviewed. Patient seen, resting in bed, labs reviewed.fairly stable labs, except the wbc. Patient seen/examined, rtesting in bed on the vent.Labs reviewed, wbc still elevated, Hgb dropped slightly. Patient seen/examined, labs reviewed, hgb 7.3, if 7.0 or less, will replace .unless otherwise indicated. Patient seen/examined, alert but lethargic.sedation drip turned down.she is s/p 1unit PRBC replacement with HD today. Patient seen/examined, labs reviewed, hgb still not quite enough at 7.5, perhaps with the next HD,can use 1-2 units. Patient seen/examined, resting in bed, trached, labs re viewed. Patient seen/examined, resting in bed, responds to name calling, SBP99, labs reviewed, Hgb 6.9, PRBC replacement ordered by primary. Patient seen/examined, in bed/trach, NGT., alert/lethargic. Patient seen/examined, resting in bed, still lethargic, labs reviewed, and still fair.Will continue to follow you. Patient seen/examined, resting in bed, labs reviewed. HD in progress.She is now getting daily HD.Labs reviewed, and still fair. Patient seen/examined, resting in bed, less lethargic/less toxic looking. labs have improved. Patient seen/examined, labs reviewed, fair, case d/w her spouse at the bed side. Patient seen/examined, resting ok in bed, alert, NAD, HD in progress.Labs reviewed, and WBC 27,000, Hgb 7.8. Patient seen/examined, resting in bed in the ICU, NAD.labs reviewed, and fair. Patient seen/examined, resting in bed, labs reviewed, WBC back up,to37,000, and Hgb down to 7.3, transfusion will be needed ,if hgb less, or equal to 7.0 Patient seen/examined, resting in bed in the ICU, alert, lethargic, labs reviewed, and fair. She remains on 5mics of levophed., Temp 100. Objective - Constitutional Vitals: Vital Signs - 12hr 09/24/17 09/24/17 09/24/17 09:30 09:45 10:00 Temperature Pulse Rate 113 H 112 H 115 H Pulse Rate [ From Monitor] Respiratory 30 H 27 H 35 H Rate Blood Pressure 142/69 159/87 157/79 O2 Sat by Pulse 98 100 94 Oximetry O2 Sat by Pulse Oximetry [ Assessment] 09/24/17 09/24/17 09/24/17 10:15 10:30 10:45 Temperature Pulse Rate 116 H 116 H 119 H Pulse Rate [ From Monitor] Respiratory 35 H 30 H 35 H Rate Blood Pressure 167/79 151/73 166/69 O2 Sat by Pulse 93 97 93 Oximetry O2 Sat by Pulse Oximetry [ Assessment] 09/24/17 09/24/17 09/24/17 11:00 11:15 11:30 Temperature Pulse Rate 118 H 124 H 116 H Pulse Rate [ From Monitor] Respiratory 33 H 34 H 30 H Rate Blood Pressure 144/66 158/68 129/67 O2 Sat by Pulse 93 94 95 Oximetry O2 Sat by Pulse Oximetry [ Assessment] 09/24/17 09/24/17 09/24/17 11:45 12:00 12:15 Temperature 98.3 F Pulse Rate 115 H 114 H 115 H Pulse Rate [ 118 H From Monitor] Respiratory 35 H 34 H 35 H Rate Blood Pressure 153/81 142/64 135/70 O2 Sat by Pulse 93 99 92 Oximetry O2 Sat by Pulse Oximetry [ Assessment] 09/24/17 09/24/17 09/24/17 16:00 16:56 16:57 Temperature 97.2 F L Pulse Rate 113 H 111 H Pulse Rate [ From Monitor] Respiratory 16 Rate Blood Pressure 148/67 142/64 O2 Sat by Pulse 100 Oximetry O2 Sat by Pulse 98 Oximetry [ Assessment] 09/24/17 09/24/17 09/24/17 17:00 17:01 17:05 Temperature 97.2 F L Pulse Rate 111 H 112 H 111 H Pulse Rate [ From Monitor] Respiratory 25 H 35 H 25 H Rate Blood Pressure 135/70 148/67 146/78 O2 Sat by Pulse 100 97 Oximetry O2 Sat by Pulse Oximetry [ Assessment] 09/24/17 09/24/17 09/24/17 17:10 17:15 17:16 Temperature Pulse Rate 113 H 113 H 113 H Pulse Rate [ From Monitor] Respiratory 24 24 22 Rate Blood Pressure 128/69 132/75 132/75 O2 Sat by Pulse 94 93 99 Oximetry O2 Sat by Pulse Oximetry [ Assessment] 09/24/17 09/24/17 09/24/17 17:30 17:31 17:41 Temperature Pulse Rate 116 H 117 H Pulse Rate [ From Monitor] Respiratory 27 H 28 H Rate Blood Pressure 147/79 147/79 132/75 O2 Sat by Pulse 93 98 98 Oximetry O2 Sat by Pulse Oximetry [ Assessment] 09/24/17 09/24/17 09/24/17 17:45 18:01 18:15 Temperature 97.5 F L Pulse Rate 115 H 117 H 117 H Pulse Rate [ From Monitor] Respiratory 24 26 H 32 H Rate Blood Pressure 132/75 132/75 132/75 O2 Sat by Pulse 97 97 96 Oximetry O2 Sat by Pulse Oximetry [ Assessment] 09/24/17 09/24/17 09/24/17 18:31 18:45 20:00 Temperature 100.0 F H Pulse Rate 118 H 116 H Pulse Rate [ From Monitor] Respiratory 31 H 35 H Rate Blood Pressure 101/68 101/68 132/76 O2 Sat by Pulse 97 99 Oximetry O2 Sat by Pulse Oximetry [ Assessment] General appearance: Present: mild distress - EENT Eyes: PERRL, EOM intact ENT: hearing intact, clear oral mucosa Ears: bilateral: normal - Neck Neck: supple, normal ROM - Respiratory Respiratory: bilateral: diminished, rhonchi - Breasts Breasts: deferred - Cardiovascular Rhythm: regular Heart Sounds: Present: S1 & S2. Absent: gallop, rub Extremities: pulses intact, No edema, normal color, Full ROM - Gastrointestinal General gastrointestinal: Present: soft, non-tender, non-distended, normal bowel sounds Rectal Exam: deferred - Genitourinary Female genitourinary: deferred - Integumentary Integumentary: clear, warm, dry - Neurologic Neurologic: moves all extremities - Psychiatric Psychiatric: appropriate mood/affect - Labs CBC & Chem 7: 09/24/17 04:00 09/24/17 04:00 Labs: Abnormal lab results 09/21/17 09/23/17 09/24/17 Range/Units 11:50 23:55 04:00 WBC (4.5-11.0) K/mm3 RBC (3.65-5.03) M/mm3 Hgb (10.1-14.3) gm/dl Hct (30.3-42.9) % RDW (13.2-15.2) % Plt Count (140-440) K/mm3 Lymphocytes % (Manual) (13.4-35.0) % Nucleated RBC % (0.0-0.9) % Seg Neutrophils # Man (1.8-7.7) K/mm3 Monocytes # (Manual) (0.0-0.8) K/mm3 Basophils # (Manual) (0.0-0.1) K/mm3 Potassium 3.5 L (3.6-5.0) mmol/L Chloride 95.2 L (98-107) mmol/L BUN 67 H (7-17) mg/dL Creatinine 1.9 H (0.7-1.2) mg/dL Glucose 140 H (65-100) mg/dL POC Glucose 120 H (70-105) Calcium 8.2 L (8.4-10.2) mg/dL Phosphorus 2.00 L (2.5-4.5) mg/dL Crossmatch See Detail 09/24/17 09/24/17 09/24/17 Range/Units 04:00 04:00 05:33 WBC 37.8 H (4.5-11.0) K/mm3 RBC 2.76 L (3.65-5.03) M/mm3 Hgb 8.1 L (10.1-14.3) gm/dl Hct 24.8 L (30.3-42.9) % RDW 19.8 H (13.2-15.2) % Plt Count 539 H (140-440) K/mm3 Lymphocytes % (Manual) 4.0 L (13.4-35.0) % Nucleated RBC % 6.0 H (0.0-0.9) % Seg Neutrophils # Man 19.3 H (1.8-7.7) K/mm3 Monocytes # (Manual) 1.5 H (0.0-0.8) K/mm3 Basophils # (Manual) 0.4 H (0.0-0.1) K/mm3 Potassium (3.6-5.0) mmol/L Chloride (98-107) mmol/L BUN (7-17) mg/dL Creatinine (0.7-1.2) mg/dL Glucose (65-100) mg/dL POC Glucose 178 H (70-105) Calcium (8.4-10.2) mg/dL Phosphorus (2.5-4.5) mg/dL Crossmatch See Detail 09/24/17 09/24/17 Range/Units 12:16 17:51 WBC (4.5-11.0) K/mm3 RBC (3.65-5.03) M/mm3 Hgb (10.1-14.3) gm/dl Hct (30.3-42.9) % RDW (13.2-15.2) % Plt Count (140-440) K/mm3 Lymphocytes % (Manual) (13.4-35.0) % Nucleated RBC % (0.0-0.9) % Seg Neutrophils # Man (1.8-7.7) K/mm3 Monocytes # (Manual) (0.0-0.8) K/mm3 Basophils # (Manual) (0.0-0.1) K/mm3 Potassium (3.6-5.0) mmol/L Chloride (98-107) mmol/L BUN (7-17) mg/dL Creatinine (0.7-1.2) mg/dL Glucose (65-100) mg/dL POC Glucose 262 H 166 H (70-105) Calcium (8.4-10.2) mg/dL Phosphorus (2.5-4.5) mg/dL Crossmatch
[2017-09-25] MEDS: FLAGYL 500 MG/100 ML 500 MG/100 ML BAG IV SCH (06:00)
[2017-09-25] MEDS: NOVOLOG SUB-Q SCH ×4 (06:20→18:10)
[2017-09-25 07:56] LABS: Hemoglobin 7.7 gm/dl (10.1-14.3); Mean Corpuscular HGB Conc 30 % (30-34); Mean Corpuscular Hemoglobin 29 pg (28-32); Mean Corpuscular Volume 99 fl (79-97); Platelet Count 432 K/mm3 (140-440); Red Blood Count 2.63 M/mm3 (3.65-5.03)
[2017-09-25 08:02] LABS: Red Cell Distribution Width 21.8 % (13.2-15.2); White Blood Count 59.6 K/mm3 (4.5-11.0)
--- NOTE | 2017-09-25 08:04 | Progress Note ---
Assessment and Plan - Patient Problems (1) ESRD (end stage renal disease) on dialysis Current Visit: Yes Status: Acute Plan to address problem: Continue HD on MWF and Isolated UF on TTS as tolerated. HD today. Patient is on TPN. Monitor lytes. D/w her at the bedside. (2) Anemia Current Visit: No Status: Chronic Qualifiers: Anemia type: due to chronic kidney disease Iron deficiency anemia type: I Vitamin B12 deficiency anemia type: V Folate deficiency anemia type: F Bone marrow failure anemia type: B Hemolytic anemia type: H Other causes of anemia: O Chronic kidney disease stage: on chronic dialysis Qualified Code(s ): N18.6 - End stage renal disease; D63.1 - Anemia in chronic kidney disease; Z99.2 - Dependence on renal dialysis Plan to address problem: S/p multiple units of PRBC. Patient continues to drop Hb level. Epogen on dialysis days. Unable to give IV Iron due to high Ferritin level. (3) Hypotension Current Visit: Yes Status: Chronic Qualifiers: Hypotension type: H Trimester: T Plan to address problem: On Levophed. (4) Volume overload Current Visit: Yes Status: Acute Qualifiers: Hypervolemia type: H Plan to address problem: UF as tolerated. (5) Leukocytosis Current Visit: Yes Status: Acute Qualifiers: Leukocytosis type: unspecified Qualified Code(s): D72.829 - Elevated white blood cell count, unspecified (6) Acute respiratory failure with hypoxemia Current Visit: Yes Status: Acute Plan to address problem: On the vent. (7) Sepsis Current Visit: Yes Status: Acute Qualifiers: Sepsis type: S Subjective Date of service: 09/25/17 Principal diagnosis: respiratory failure, sepsis, shock rectal bleeding Interval history: Patient was seen and examined at the bedside. Remain on the vent. Objective - Vital Signs Vital signs: Vital Signs - 12hr 09/24/17 09/24/17 09/24/17 20:15 20:31 20:45 Temperature Pulse Rate 114 H 121 H 114 H Pulse Rate [ Apical] Respiratory 30 H 38 H 33 H Rate Respiratory Rate [ Generalized] Blood Pressure 87/57 104/79 87/57 O2 Sat by Pulse 98 99 Oximetry O2 Sat by Pulse Oximetry [ Assessment] 09/24/17 09/24/17 09/24/17 20:50 21:00 21:15 Temperature Pulse Rate 118 H 116 H Pulse Rate [ 102 H Apical] Respiratory 25 H 38 H 44 H Rate Respiratory Rate [ Generalized] Blood Pressure 106/75 104/79 O2 Sat by Pulse 100 Oximetry O2 Sat by Pulse Oximetry [ Assessment] 09/24/17 09/24/17 09/24/17 21:31 21:45 22:00 Temperature Pulse Rate 115 H 113 H 113 H Pulse Rate [ Apical] Respiratory 30 H 28 H Rate Respiratory 19 Rate [ Generalized] Blood Pressure 104/79 106/75 O2 Sat by Pulse 99 100 Oximetry O2 Sat by Pulse Oximetry [ Assessment] 09/24/17 09/24/17 09/24/17 22:01 22:15 22:30 Temperature Pulse Rate 113 H 113 H 113 H Pulse Rate [ Apical] Respiratory 44 H 31 H 29 H Rate Respiratory Rate [ Generalized] Blood Pressure 99/57 99/57 89/51 O2 Sat by Pulse 99 Oximetry O2 Sat by Pulse Oximetry [ Assessment] 09/24/17 09/24/17 09/24/17 22:45 23:00 23:15 Temperature Pulse Rate 112 H 112 H 106 H Pulse Rate [ Apical] Respiratory 43 H 38 H 40 H Rate Respiratory Rate [ Generalized] Blood Pressure 89/51 100/54 100/54 O2 Sat by Pulse 94 Oximetry O2 Sat by Pulse Oximetry [ Assessment] 09/24/17 09/24/17 09/24/17 23:30 23:36 23:45 Temperature Pulse Rate 113 H 114 H Pulse Rate [ 110 H Apical] Respiratory 40 H 21 22 Rate Respiratory Rate [ Generalized] Blood Pressure 102/58 102/58 O2 Sat by Pulse 75 L 99 100 Oximetry O2 Sat by Pulse Oximetry [ Assessment] 09/25/17 09/25/17 09/25/17 00:00 00:03 00:15 Temperature 99.1 F Pulse Rate 110 H 109 H 111 H Pulse Rate [ Apical] Respiratory 44 H 35 H 34 H Rate Respiratory Rate [ Generalized] Blood Pressure 88/52 88/52 88/52 O2 Sat by Pulse 98 99 98 Oximetry O2 Sat by Pulse 94 Oximetry [ Assessment] 09/25/17 09/25/17 09/25/17 00:30 00:45 01:00 Temperature Pulse Rate 112 H 108 H 106 H Pulse Rate [ Apical] Respiratory 32 H 42 H 50 H Rate Respiratory Rate [ Generalized] Blood Pressure 93/47 93/47 98/62 O2 Sat by Pulse 97 97 97 Oximetry O2 Sat by Pulse Oximetry [ Assessment] 09/25/17 09/25/17 09/25/17 01:15 01:30 01:45 Temperature Pulse Rate 110 H 109 H 108 H Pulse Rate [ Apical] Respiratory 39 H 49 H 45 H Rate Respiratory Rate [ Generalized] Blood Pressure 98/62 106/56 106/56 O2 Sat by Pulse 100 95 98 Oximetry O2 Sat by Pulse Oximetry [ Assessment] 09/25/17 09/25/17 09/25/17 02:00 02:15 02:30 Temperature Pulse Rate 109 H 109 H 110 H Pulse Rate [ Apical] Respiratory 49 H 53 H 28 H Rate Respiratory Rate [ Generalized] Blood Pressure 109/50 109/50 90/52 O2 Sat by Pulse 98 97 Oximetry O2 Sat by Pulse Oximetry [ Assessment] 09/25/17 09/25/17 09/25/17 02:45 03:00 03:15 Temperature Pulse Rate 109 H 109 H 106 H Pulse Rate [ Apical] Respiratory 33 H 50 H 52 H Rate Respiratory Rate [ Generalized] Blood Pressure 90/52 96/54 96/54 O2 Sat by Pulse 99 99 100 Oximetry O2 Sat by Pulse Oximetry [ Assessment] 09/25/17 09/25/17 09/25/17 03:30 03:45 04:00 Temperature 99.6 F Pulse Rate 112 H 110 H 109 H Pulse Rate [ 114 H Apical] Respiratory 51 H 55 H 41 H Rate Respiratory Rate [ Generalized] Blood Pressure 108/68 108/68 111/53 O2 Sat by Pulse 96 98 96 Oximetry O2 Sat by Pulse Oximetry [ Assessment] 09/25/17 09/25/17 09/25/17 04:46 05:01 05:15 Temperature Pulse Rate 108 H 100 H Pulse Rate [ Apical] Respiratory 28 H 34 H Rate Respiratory Rate [ Generalized] Blood Pressure 107/56 107/56 111/53 O2 Sat by Pulse Oximetry O2 Sat by Pulse Oximetry [ Assessment] 09/25/17 09/25/17 09/25/17 05:31 05:45 06:01 Temperature Pulse Rate 107 H 106 H 109 H Pulse Rate [ Apical] Respiratory 30 H 28 H 28 H Rate Respiratory Rate [ Generalized] Blood Pressure 107/56 107/56 107/56 O2 Sat by Pulse Oximetry O2 Sat by Pulse Oximetry [ Assessment] 09/25/17 09/25/17 06:09 06:15 Temperature Pulse Rate 105 H Pulse Rate [ Apical] Respiratory 26 H Rate Respiratory Rate [ Generalized] Blood Pressure 107/56 O2 Sat by Pulse 98 Oximetry O2 Sat by Pulse Oximetry [ Assessment] - General Appearance General appearance: well-developed, appears stated age, obese, other (on vent, FiO2 25%, right IJ temp catheter) EENT: ATNC, PERRL Neck: supple Respiratory: Present: Clear to Ascultation Cardiology: regular, S1S2, no murmurs Gastrointestinal: other (MERVIN drain, ostomy and PEG tube noted) Integumentary: no rash Neurologic: other (alert, not following any command) Musculoskeletal: other (1to2+ edema of both LEs noted) - Lab 09/25/17 07:49 09/25/17 07:49 Most recent lab results ABG pH 7.323 pH Units (7.350-7.450) L 09/09/17 Unknown ABG pCO2 41.1 mm Hg 09/09/17 Unknown ABG pO2 94.1 mm Hg (80.0-90.0) H 09/09/17 Unknown ABG HCO3 20.9 mmol/L (20.0-26.0) 09/09/17 Unknown ABG O2 Saturation 97.2 % (95.0-99.0) 09/09/17 Unknown Calcium 8.2 mg/dL (8.4-10.2) L 09/24/17 04:00 Phosphorus 2.00 mg/dL (2.5-4.5) L 09/24/17 04:00 Magnesium 1.90 mg/dL (1.7-2.3) 09/24/17 04:00
[2017-09-25 08:08] LABS: Chloride 97.7 mmol/L (98-107); Magnesium 2.3 mg/dL (1.7-2.3); Potassium 5.3 mmol/L (3.6-5.0)
[2017-09-25] MEDS ORDERED: NACL 0.9% 100 ML IV PRN (08:09)
[2017-09-25 08:50] LABS: Anisocytosis 1+; Blastocytes % (Manual) 0 %; Elliptocytes Few; Eosinophils % (Manual) 0 % (0.0-4.3); Microcytosis Few; Poikilocytosis 1+; Polychromasia 1+
[2017-09-25 08:51] LABS: Diff Status Complete; Helmet Cells Rare; Large Platelets Rare; Ovalocytes 1+; Schistocytes Rare
[2017-09-25] MEDS: PROTONIX IV SCH (10:03)
[2017-09-25] MEDS: DIFLUCAN 200 MG/100 ML BAG IV SCH (10:04)
--- NOTE | 2017-09-25 10:17 | Progress Note ---
Assessment and Plan - Patient Problems (1) Leukocytosis Current Visit: Yes Status: Acute Qualifiers: Leukocytosis type: L Plan to address problem: See notes above. make sure that PD access is clean also. see notes. Probably infection from the infected PD catheter. improving. back up again. up/down continue to monitor. it continuos to rise. still high. improved. Back up. Now improving again. still in the same range as yesterday.. worse today. 37,000 59,000 (2) Anemia Current Visit: Yes Status: Acute Qualifiers: Anemia type: A Iron deficiency anemia type: I Vitamin B12 deficiency anemia type: V Folate deficiency anemia type: F Bone marrow failure anemia type: B Hemolytic anemia type: H Other causes of anemia: O Chronic kidney disease stage: C Plan to address problem: see notes , monitor labs,. see notes above. continue to monitor labs with you. blood transfusion. S/P replacement transfusion. fair. s/p 1unit transfusion. see notes. Still at 7.4 6.9, scheduled for replacement. Fairly stable at this time. continue to monitor. If less, or equal to 7.0, will need replacement transfusion, with HD. Fair at this time. 7.7 today (3) Acute respiratory failure Current Visit: Yes Status: Acute Qualifiers: Respiratory failure complication: R Plan to address problem: follow pulm. Subjective Date of service: 09/25/17 Principal diagnosis: respiratory failure, sepsis, shock rectal bleeding Interval history: Patient seen today/examined, labs reviewed, case d/w she, and family.complaints of abdominal pain. Patient resting in bed in the ICU, post vascular procedure. labs reviewed, Reactive thrombocytosis, anemia of CD, leukocytosis from infection vs inflamatory process. Patient seen/examined, in bed in the ICU, on the vent post surgery.Labs reviewed , notes reviewed. will continue to monitor labs/patient with you. Replacement transfusion, if /when indicated. patient seen/examined, SBP75, on pressors., lethargic, on the vent, labs reviewed, wbc 39,000 Patient seen/examined, case reviewed, d/w her sister at the bed side. Patient seen/examined, labs reviewed, notes reviewed. severe septic shock from infected PD catheter The high wbc is all infection related. H?H low, and may get replacement transfusion with the next HD. Prognosis remain quite poor. Patient seen/examined, extubated, now on V Mask. labs reviewed. patient seen/examined, resting in bed, still some what lethargic . labs reviewed. Patient seen/examined, resting in bed., some difficulty with breathing./ lethargic. patient seen/examined, resting in bed, looked much better labs reviewed, and fair over all. Patient seen/examined, resting in bed, labs reviewed, case d/w her. Patient seen/examined, resting in bed on BIPAP., labs reviewed. patient seen/examined, resting in bed, on Bipap.labs reviewed, fairly stable. Patient seen today, resting in bed, labs reviewed, H/H low, and transfusion already ordered. Patient seen/examined, resting in bed, transferred back to the unit, due to resp failure. She is now on venting mask. had blood replacement done. Patient seen/examined in the ICU.labs reviewed. patient intubated this am. patient resting in bed.no new issues. Patient seen/examined in the ICU, on vent,Not readily responsive. patient seen, resting in bed, no new cbc ready.will order for today. Patient seen, resting in vent, labs reviewed.notes reviewed also. patient seen/examined, resting on vent, had HD yesterday, and today., labs reviewed. Patient seen, resting in bed, labs reviewed.fairly stable labs, except the wbc. Patient seen/examined, rtesting in bed on the vent.Labs reviewed, wbc still elevated, Hgb dropped slightly. Patient seen/examined, labs reviewed, hgb 7.3, if 7.0 or less, will replace .unless otherwise indicated. Patient seen/examined, alert but lethargic.sedation drip turned down.she is s/p 1unit PRBC replacement with HD today. Patient seen/examined, labs reviewed, hgb still not quite enough at 7.5, perhaps with the next HD,can use 1-2 units. Patient seen/examined, resting in bed, trached, labs re viewed. Patient seen/examined, resting in bed, responds to name calling, SBP99, labs reviewed, Hgb 6.9, PRBC replacement ordered by primary. Patient seen/examined, in bed/trach, NGT., alert/lethargic. Patient seen/examined, resting in bed, still lethargic, labs reviewed, and still fair.Will continue to follow you. Patient seen/examined, resting in bed, labs reviewed. HD in progress.She is now getting daily HD.Labs reviewed, and still fair. Patient seen/examined, resting in bed, less lethargic/less toxic looking. labs have improved. Patient seen/examined, labs reviewed, fair, case d/w her spouse at the bed side. Patient seen/examined, resting ok in bed, alert, NAD, HD in progress.Labs reviewed, and WBC 27,000, Hgb 7.8. Patient seen/examined, resting in bed in the ICU, NAD.labs reviewed, and fair. Patient seen/examined, resting in bed, labs reviewed, WBC back up,to37,000, and Hgb down to 7.3, transfusion will be needed ,if hgb less, or equal to 7.0 Patient seen/examined, resting in bed in the ICU, alert, lethargic, labs reviewed, and fair. She remains on 5mics of levophed., Temp 100. Patient seen/examined in the ICU, alert, Labs reviewed, WBC 59,000. Objective - Constitutional Vitals: Vital Signs - 12hr 09/24/17 09/24/17 09/24/17 22:30 22:45 23:00 Temperature Pulse Rate 113 H 112 H 112 H Pulse Rate [ Apical] Pulse Rate [ From Monitor] Respiratory 29 H 43 H 38 H Rate Blood Pressure 89/51 89/51 100/54 O2 Sat by Pulse Oximetry O2 Sat by Pulse Oximetry [ Assessment] 09/24/17 09/24/17 09/24/17 23:15 23:30 23:36 Temperature Pulse Rate 106 H 113 H Pulse Rate [ 110 H Apical] Pulse Rate [ From Monitor] Respiratory 40 H 40 H 21 Rate Blood Pressure 100/54 102/58 O2 Sat by Pulse 94 75 L 99 Oximetry O2 Sat by Pulse Oximetry [ Assessment] 09/24/17 09/25/17 09/25/17 23:45 00:00 00:03 Temperature 99.1 F Pulse Rate 114 H 110 H 109 H Pulse Rate [ Apical] Pulse Rate [ From Monitor] Respiratory 22 44 H 35 H Rate Blood Pressure 102/58 88/52 88/52 O2 Sat by Pulse 100 98 99 Oximetry O2 Sat by Pulse 94 Oximetry [ Assessment] 09/25/17 09/25/1717 00:15 00:30 00:45 Temperature Pulse Rate 111 H 112 H 108 H Pulse Rate [ Apical] Pulse Rate [ From Monitor] Respiratory 34 H 32 H 42 H Rate Blood Pressure 88/52 93/47 93/47 O2 Sat by Pulse 98 97 97 Oximetry O2 Sat by Pulse Oximetry [ Assessment] 09/25/17 09/25/17 09/25/17 01:00 01:15 01:30 Temperature Pulse Rate 106 H 110 H 109 H Pulse Rate [ Apical] Pulse Rate [ From Monitor] Respiratory 50 H 39 H 49 H Rate Blood Pressure 98/62 98/62 106/56 O2 Sat by Pulse 97 100 95 Oximetry O2 Sat by Pulse Oximetry [ Assessment] 09/25/17 09/25/17 09/25/17 01:45 02:00 02:15 Temperature Pulse Rate 108 H 109 H 109 H Pulse Rate [ Apical] Pulse Rate [ From Monitor] Respiratory 45 H 49 H 53 H Rate Blood Pressure 106/56 109/50 109/50 O2 Sat by Pulse 98 98 97 Oximetry O2 Sat by Pulse Oximetry [ Assessment] 09/25/17 09/25/17 09/25/17 02:30 02:45 03:00 Temperature Pulse Rate 110 H 109 H 109 H Pulse Rate [ Apical] Pulse Rate [ From Monitor] Respiratory 28 H 33 H 50 H Rate Blood Pressure 90/52 90/52 96/54 O2 Sat by Pulse 99 99 Oximetry O2 Sat by Pulse Oximetry [ Assessment] 09/25/17 09/25/17 09/25/17 03:15 03:30 03:45 Temperature Pulse Rate 106 H 112 H 110 H Pulse Rate [ Apical] Pulse Rate [ From Monitor] Respiratory 52 H 51 H 55 H Rate Blood Pressure 96/54 108/68 108/68 O2 Sat by Pulse 100 96 98 Oximetry O2 Sat by Pulse Oximetry [ Assessment] 09/25/17 09/25/17 09/25/17 04:00 04:46 05:01 Temperature 99.6 F Pulse Rate 109 H 108 H Pulse Rate [ 114 H Apical] Pulse Rate [ From Monitor] Respiratory 41 H 28 H Rate Blood Pressure 111/53 107/56 107/56 O2 Sat by Pulse 96 Oximetry O2 Sat by Pulse Oximetry [ Assessment] 09/25/17 09/25/17 09/25/17 05:15 05:31 05:45 Temperature Pulse Rate 100 H 107 H 106 H Pulse Rate [ Apical] Pulse Rate [ From Monitor] Respiratory 34 H 30 H 28 H Rate Blood Pressure 111/53 107/56 107/56 O2 Sat by Pulse Oximetry O2 Sat by Pulse Oximetry [ Assessment] 09/25/17 09/25/17 09/25/17 06:01 06:09 06:15 Temperature Pulse Rate 109 H 105 H Pulse Rate [ Apical] Pulse Rate [ From Monitor] Respiratory 28 H 26 H Rate Blood Pressure 107/56 107/56 O2 Sat by Pulse 98 Oximetry O2 Sat by Pulse Oximetry [ Assessment] 09/25/17 09/25/17 09/25/17 06:30 06:45 07:01 Temperature Pulse Rate 105 H 102 H 97 H Pulse Rate [ Apical] Pulse Rate [ From Monitor] Respiratory 25 H 26 H 17 Rate Blood Pressure 108/46 108/46 108/46 O2 Sat by Pulse 100 96 Oximetry O2 Sat by Pulse Oximetry [ Assessment] 09/25/17 09/25/17 09/25/17 07:15 07:30 07:45 Temperature Pulse Rate 102 H 103 H 106 H Pulse Rate [ Apical] Pulse Rate [ From Monitor] Respiratory 25 H 31 H 28 H Rate Blood Pressure 118/53 129/66 129/66 O2 Sat by Pulse 100 98 97 Oximetry O2 Sat by Pulse Oximetry [ Assessment] 09/25/17 09/25/17 09/25/17 08:00 08:15 08:20 Temperature 97.5 F L Pulse Rate 105 H 103 H Pulse Rate [ Apical] Pulse Rate [ 105 H From Monitor] Respiratory 28 H 27 H Rate Blood Pressure 105/62 105/62 O2 Sat by Pulse 66 L 99 Oximetry O2 Sat by Pulse 100 Oximetry [ Assessment] 09/25/17 08:30 Temperature Pulse Rate 103 H Pulse Rate [ Apical] Pulse Rate [ From Monitor] Respiratory 26 H Rate Blood Pressure 118/64 O2 Sat by Pulse 100 Oximetry O2 Sat by Pulse Oximetry [ Assessment] General appearance: Present: mild distress - EENT Eyes: PERRL, EOM intact ENT: hearing intact, clear oral mucosa Ears: bilateral: normal - Neck Neck: supple, normal ROM - Respiratory Respiratory: bilateral: diminished, rhonchi - Breasts Breasts: deferred - Cardiovascular Rhythm: regular Heart Sounds: Present: S1 & S2. Absent: gallop, rub Extremities: pulses intact, No edema, normal color, Full ROM - Gastrointestinal General gastrointestinal: Present: soft, non-tender, non-distended, normal bowel sounds - Genitourinary Female genitourinary: deferred - Integumentary Integumentary: clear, warm, dry - Neurologic Neurologic: moves all extremities - Psychiatric Psychiatric: appropriate mood/affect - Labs CBC & Chem 7: 09/25/17 07:49 09/25/17 07:49 Labs: Abnormal lab results 09/24/17 09/24/17 09/24/17 Range/Units 04:00 12:16 17:51 WBC (4.5-11.0) K/mm3 RBC (3.65-5.03) M/mm3 Hgb (10.1-14.3) gm/dl Hct (30.3-42.9) % MCV (79-97) fl RDW (13.2-15.2) % Lymphocytes % (Manual) (13.4-35.0) % Nucleated RBC % (0.0-0.9) % Seg Neutrophils # Man (1.8-7.7) K/mm3 Monocytes # (Manual) (0.0-0.8) K/mm3 Potassium (3.6-5.0) mmol/L Chloride (98-107) mmol/L Carbon Dioxide (22-30) mmol/L BUN (7-17) mg/dL Creatinine (0.7-1.2) mg/dL Glucose (65-100) mg/dL POC Glucose 262 H 166 H (70-105) Calcium (8.4-10.2) mg/dL Crossmatch See Detail 09/24/17 09/25/17 09/25/17 Range/Units 23:33 06:03 07:49 WBC 59.6 H* (4.5-11.0) K/mm3 RBC 2.63 L (3.65-5.03) M/mm3 Hgb 7.7 L (10.1-14.3) gm/dl Hct 26.0 L (30.3-42.9) % MCV 99 H (79-97) fl RDW 21.8 H (13.2-15.2) % Lymphocytes % (Manual) 2.0 L (13.4-35.0) % Nucleated RBC % 8.0 H (0.0-0.9) % Seg Neutrophils # Man 41.7 H (1.8-7.7) K/mm3 Monocytes # (Manual) 1.2 H (0.0-0.8) K/mm3 Potassium (3.6-5.0) mmol/L Chloride (98-107) mmol/L Carbon Dioxide (22-30) mmol/L BUN (7-17) mg/dL Creatinine (0.7-1.2) mg/dL Glucose (65-100) mg/dL POC Glucose 142 H 173 H (70-105) Calcium (8.4-10.2) mg/dL Crossmatch 09/25/17 Range/Units 07:49 WBC (4.5-11.0) K/mm3 RBC (3.65-5.03) M/mm3 Hgb (10.1-14.3) gm/dl Hct (30.3-42.9) % MCV (79-97) fl RDW (13.2-15.2) % Lymphocytes % (Manual) (13.4-35.0) % Nucleated RBC % (0.0-0.9) % Seg Neutrophils # Man (1.8-7.7) K/mm3 Monocytes # (Manual) (0.0-0.8) K/mm3 Potassium 5.3 H D (3.6-5.0) mmol/L Chloride 97.7 L (98-107) mmol/L Carbon Dioxide 19 L (22-30) mmol/L BUN 90 H (7-17) mg/dL Creatinine 2.5 H (0.7-1.2) mg/dL Glucose 181 H (65-100) mg/dL POC Glucose (70-105) Calcium 8.0 L (8.4-10.2) mg/dL Crossmatch
[2017-09-25] MEDS: LEVEMIR SUB-Q SCH (10:25)
--- NOTE | 2017-09-25 10:54 | Progress Note ---
Assessment and Plan Assessment: 1) Sepsis with septic shock: worsening leukocytosis (after OR), decreased pressors requirement; ? colonic perf ? leak. Restared on IV solumedrol 09/13 2) Initial Bowel obstruction / suspect ?gastric perforation ? peritonitis -S/P Exlap, G-tube placement, EGD, abdominal washout and removal of PD -OR findings - bowel obstruction due to entanglement of PD cath, abscess cavity in LUQ and ? suspect perforation of unclear location 3) Intiial CA-UTI: chronic ivan exchanged every 4 weeks and ureteral stents in place which are exchanged every 6 months 4) Paraplegia 5) ESRD on PD - now on HD 6) Recent pancreatitis 7) Penicillin allergy-has taken keflex w/o problems 8) Presumed Surgical wound infection / dehiscence ? 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 11) Anemia- severe- Hg 6.7 today 12) Colonic perforation -S/P exlap, transverse colectomy, right sided colostomy and wash out on 09/15 -?presumed leak -surgical wound + Kristine and MDR Acinetobacter 13) Small bowell enterotomy leak / peritonitis s/p wash out / biologic mesh placement / closure of small bowel enterotomy on 09/24 Plan: -place an art line / cuff BP is unreliable -stop cefepime / flagyl -acinetobacter from wound is MDR-only sensitive to AG and meropenem -start meropenem -continue fluconazole -contact isolation -prognosis very poor -Discussed with ICU staff and Dr Latif Thank you Dr Chen for your consultation, will follow up with you. Ramya Lang MD Infectious Diseases Specialist [facility] ([facility] M [phone] O [phone] Subjective Date of service: 09/25/17 Principal diagnosis: respiratory failure, sepsis, shock rectal bleeding Interval history: Pt remains on the vent still levophed at 5 mcg from 26, on TPN, fentanyl, tmax 100. went to the OR last night. Microbiology: Blood cultures: 08/08 neg 08/12 neg 08/16 neg 08/20 neg 08/29 neg 09/06 neg 09/12 ngtd Urine cultures: 9/14 10-100K skin grace Respiratory cultures: 08/30 tracheal asp MRSA Wound cultures: 08/26 Staph aureus and Kristine 08/28 MRSA, E faecalis, Kristine albicans 09/20 MDR Acinetobacter and Kristine Stool cultures: Other: 08/08 peritoneal fluid + MEDIA RELATIONS MANAGER/Diphteroids Current Antimicrobials: Previous Antimicrobials: 08/10 levaquin 08/16 vancomycin 08/13 meropenem 08/16 fluconazole Micafungin 08/29 meropenem 08/29 zyvox 09/03 fluconazole 09/03 dapto 09/10 meropenem 09/09-09/22 micafungin 09/11-09/21 Objective - Exam Narrative Exam: General appearance: alert this am on vent via trach Eyes: anicteric sclerae, moist conjunctivae; no lid-lag; PERRLA HENT: Atraumatic; NGT Neck: Trach in place Lungs: coarse BS moreno CV: RRR Abdomen: soft, midline surgical wound with sutures +marked yellowish drainage. Gtube. colostomy Extremities: + peripheral edema + leg ulcer no drainage Skin: right groin old fem line wound no erythema, no drainage Psych: sedated. Neuro: sedated Lines: right IJ vas cath / Right IJ Nair 08/16 - Constitutional Vitals: Vital Signs Temp Pulse Resp BP Pulse Ox 97.5 F L 103 H 26 H 118/64 100 09/25/17 08:00 09/25/17 08:30 09/25/17 08:30 09/25/17 08:30 09/25/17 08:30 Temperature -Last 24 Hours Temperature 97.5 F Temperature 99.6 F Temperature 99.1 F Temperature 100.0 F Temperature 97.5 F Temperature 97.2 F Temperature 97.2 F Temperature 98.3 F - Labs CBC & Chem 7: 09/25/17 07:49 09/25/17 07:49 Labs: Abnormal lab results 09/24/17 09/24/17 09/24/17 Range/Units 04:00 12:16 17:51 WBC (4.5-11.0) K/mm3 RBC (3.65-5.03) M/mm3 Hgb (10.1-14.3) gm/dl Hct (30.3-42.9) % MCV (79-97) fl RDW (13.2-15.2) % Lymphocytes % (Manual) (13.4-35.0) % Nucleated RBC % (0.0-0.9) % Seg Neutrophils # Man (1.8-7.7) K/mm3 Monocytes # (Manual) (0.0-0.8) K/mm3 Potassium (3.6-5.0) mmol/L Chloride (98-107) mmol/L Carbon Dioxide (22-30) mmol/L BUN (7-17) mg/dL Creatinine (0.7-1.2) mg/dL Glucose (65-100) mg/dL POC Glucose 262 H 166 H (70-105) Calcium (8.4-10.2) mg/dL Crossmatch See Detail 09/24/17 09/25/17 09/25/17 Range/Units 23:33 06:03 07:49 WBC 59.6 H* (4.5-11.0) K/mm3 RBC 2.63 L (3.65-5.03) M/mm3 Hgb 7.7 L (10.1-14.3) gm/dl Hct 26.0 L (30.3-42.9) % MCV 99 H (79-97) fl RDW 21.8 H (13.2-15.2) % Lymphocytes % (Manual) 2.0 L (13.4-35.0) % Nucleated RBC % 8.0 H (0.0-0.9) % Seg Neutrophils # Man 41.7 H (1.8-7.7) K/mm3 Monocytes # (Manual) 1.2 H (0.0-0.8) K/mm3 Potassium (3.6-5.0) mmol/L Chloride (98-107) mmol/L Carbon Dioxide (22-30) mmol/L BUN (7-17) mg/dL Creatinine (0.7-1.2) mg/dL Glucose (65-100) mg/dL POC Glucose 142 H 173 H (70-105) Calcium (8.4-10.2) mg/dL Crossmatch 09/25/17 Range/Units 07:49 WBC (4.5-11.0) K/mm3 RBC (3.65-5.03) M/mm3 Hgb (10.1-14.3) gm/dl Hct (30.3-42.9) % MCV (79-97) fl RDW (13.2-15.2) % Lymphocytes % (Manual) (13.4-35.0) % Nucleated RBC % (0.0-0.9) % Seg Neutrophils # Man (1.8-7.7) K/mm3 Monocytes # (Manual) (0.0-0.8) K/mm3 Potassium 5.3 H D (3.6-5.0) mmol/L Chloride 97.7 L (98-107) mmol/L Carbon Dioxide 19 L (22-30) mmol/L BUN 90 H (7-17) mg/dL Creatinine 2.5 H (0.7-1.2) mg/dL Glucose 181 H (65-100) mg/dL POC Glucose (70-105) Calcium 8.0 L (8.4-10.2) mg/dL Crossmatch
--- NOTE | 2017-09-25 11:20 | Progress Note ---
Assessment and Plan Assessment and plan: Septic shock. Patient with previous abdominal abscess and CAUTI. ID following. Cont. meropenem and fluconazole (previous agents - meropenem/ micafungin for Presumed Surgical wound infection / dehiscence ? wound + MRSA, E faecalis and Kristine albicans) Pt. may now have ? colonic perf ? leak. Worsening leukocytosis Acute hypoxic respiratory failure. Patient remains on mechanical ventilation postoperatively. Continue weaning per pulmonary MRSA in tracheal aspirate ? colonizer versus VAP Peritonitis/intra-abdominal abscess/ Initial Bowel obstruction (related to likely gastric perforation). 09/24/17: ex lap with abdominal washout and placement of biologic mesh and proximal aspect of midline wound, closure of enterotomy 09/15/17: Ex lap, transverse colectomy, R colostomy and abdominal wash out 08/31: Ex lap with abdominal wash out and closure 08/17: Ex lap with G tube placement, EGD, abdominal wash out and removal of PD Cath (OR findings - bowel obstruction due to entanglement of PD cath, abscess cavity in LUQ and ? suspect perforation of unclear location) Cont. TPN End-stage renal disease -patient previously with peritoneal dialysis that has been discontinued -Hemodialysis per nephrology. -needs perm cath when improved Ulcerative esophagitis/small gastric ulcer. Patient status post EGD. s/p multiple transfusions -Patient had CTA of abdomen and pelvis that revealed no active bleeding, CT Abdomen repeated 09/06, no acute findings CAUTI. Completed antibiotics Protein calorie malnutrition. -Continue TPN. Leukocytosis. -worse- -ID following -Follow up CBC Recent pancreatitis. resolved Penicillin allergy-has taken keflex w/o problems in past NSVT cardiology believes that etiology was secondary to Levophed which now has been weaned off History of cervical surgery and postoperative wheelchair bound since then - pain control DVT prophylaxis Disposition - Prognosis is extremely guarded. The high probability of a clinically significant, sudden or life threatening deterioration of the [hemodynamic, respiratory] system(s) required my full and direct attention, intervention and personal management. The aggregate critical care time was [32] minutes. This time is in addition to time spent performing reported procedures but includes the following: [x] Data Review and interpretation [x] Patient assessment and monitoring of vital signs [x] Documentation [x] Medication orders and management History Interval history: Patient is s/p ex lap with abdominal washout and placement of biologic mesh and proximal aspect of midline woundclosure of enterotomy yesterday Hospitalist Physical - Constitutional Vitals: Temp Pulse Resp BP Pulse Ox 97.5 F L 103 H 26 H 118/64 100 09/25/17 08:00 09/25/17 08:30 09/25/17 08:30 09/25/17 08:30 09/25/17 08:30 General appearance: Present: mild distress - EENT Eyes: Present: PERRL, EOM intact ENT: hearing intact, clear oral mucosa, dentition normal - Neck Neck: Present: supple, normal ROM - Respiratory Respiratory effort: normal Respiratory: bilateral: CTA - Cardiovascular Rhythm: regular Heart Sounds: Present: S1 & S2. Absent: gallop, rub - Extremities Extremities: no ischemia, No edema, Full ROM - Abdominal General gastrointestinal: soft, tender, non-distended, normal bowel sounds, other (abd wound) - Integumentary Integumentary: Present: clear, warm, dry - Neurologic Neurologic: CNII-XII intact, moves all extremities Results - Labs CBC & Chem 7: 09/25/17 07:49 09/25/17 07:49 Labs: Laboratory Last Values WBC 59.6 K/mm3 (4.5-11.0) H* 09/25/17 07:49 RBC 2.63 M/mm3 (3.65-5.03) L 09/25/17 07:49 Hgb 7.7 gm/dl (10.1-14.3) L 09/25/17 07:49 Hct 26.0 % (30.3-42.9) L 09/25/17 07:49 MCV 99 fl (79-97) H 09/25/17 07:49 MCH 29 pg (28-32) 09/25/17 07:49 MCHC 30 % (30-34) 09/25/17 07:49 RDW 21.8 % (13.2-15.2) H 09/25/17 07:49 Plt Count 432 K/mm3 (140-440) 09/25/17 07:49 Lymph % (Auto) [employer] 08/19/17 07:37 [place] % (Auto) [employer] 09/24/17 04:00 Eos % (Auto) [employer] 08/19/17 07:37 Baso % (Auto) [employer] 08/19/17 07:37 Lymph # [employer] 08/19/17 07:37 [place] # [employer] 08/19/17 07:37 Eos # [employer] 08/19/17 07:37 Baso # [employer] 08/19/17 07:37 Add Manual Diff Complete 09/25/17 07:49 Total Counted 100 09/25/17 07:49 Seg Neutrophils % [employer] 09/08/17 04:05 Seg Neuts % (Manual) 70.0 % (40.0-70.0) 09/25/17 07:49 Band Neutrophils % 19.0 % 09/25/17 07:49 Lymphocytes % (Manual) 2.0 % (13.4-35.0) L 09/25/17 07:49 Reactive Lymphs % (Man) 0 % 09/25/17 07:49 Monocytes % (Manual) 2.0 % (0.0-7.3) 09/25/17 07:49 Eosinophils % (Manual) 0 % (0.0-4.3) 09/25/17 07:49 Basophils % (Manual) 1.0 % (0.0-1.8) 09/24/17 04:00 Metamyelocytes % 6.0 % 09/25/17 07:49 Myelocytes % 1.0 % 09/25/17 07:49 Promyelocytes % 0 % 09/25/17 07:49 Blast Cells % 0 % 09/25/17 07:49 Nucleated RBC % 8.0 % (0.0-0.9) H 09/25/17 07:49 Seg Neutrophils # [employer] 08/19/17 07:37 Seg Neutrophils # Man 41.7 K/mm3 (1.8-7.7) H 09/25/17 07:49 Band Neutrophils # 11.3 K/mm3 09/25/17 07:49 Lymphocytes # (Manual) 1.2 K/mm3 (1.2-5.4) 09/25/17 07:49 Abs React Lymphs (Man) 0.0 K/mm3 09/25/17 07:49 Monocytes # (Manual) 1.2 K/mm3 (0.0-0.8) H 09/25/17 07:49 Eosinophils # (Manual) 0.0 K/mm3 (0.0-0.4) 09/25/17 07:49 Basophils # (Manual) 0.0 K/mm3 (0.0-0.1) 09/25/17 07:49 Metamyelocytes # 3.6 K/mm3 09/25/17 07:49 Myelocytes # 0.6 K/mm3 09/25/17 07:49 Promyelocytes # 0.0 K/mm3 09/25/17 07:49 Blast Cells # 0.0 K/mm3 09/25/17 07:49 Pathologist Review Not Reportable 08/30/17 05:20 WBC Morphology Not Reportable 09/25/17 07:49 Hypersegmented Neuts Not Reportable 09/25/17 07:49 Hyposegmented Neuts Not Reportable 09/25/17 07:49 Hypogranular Neuts Not Reportable 09/25/17 07:49 Smudge Cells Not Reportable 09/25/17 07:49 Toxic Granulation Not Reportable 09/25/17 07:49 Toxic Vacuolation Not Reportable 09/25/17 07:49 Dohle Bodies Not Reportable 09/25/17 07:49 Pelger-Huet Anomaly Not Reportable 09/25/17 07:49 Ariel Rods Not Reportable 09/25/17 07:49 Platelet Estimate Appears normal 09/25/17 07:49 Clumped Platelets Not Reportable 09/25/17 07:49 Plt Clumps, EDTA Not Reportable 09/25/17 07:49 Large Platelets Rare 09/25/17 07:49 Giant Platelets Not Reportable 09/25/17 07:49 Platelet Satelliting Not Reportable 09/25/17 07:49 Plt Morphology Comment Not Reportable 09/25/17 07:49 RBC Morphology Not Reportable 09/25/17 07:49 Dimorphic RBCs Not Reportable 09/25/17 07:49 Polychromasia 1+ 09/25/17 07:49 Hypochromasia Not Reportable 09/25/17 07:49 Poikilocytosis 1+ 09/25/17 07:49 Anisocytosis 1+ 09/25/17 07:49 Microcytosis Few 09/25/17 07:49 Macrocytosis Not Reportable 09/25/17 07:49 Spherocytes Not Reportable 09/25/17 07:49 Pappenheimer Bodies Not Reportable 09/25/17 07:49 Sickle Cells Not Reportable 09/25/17 07:49 Target Cells Not Reportable 09/25/17 07:49 Tear Drop Cells Not Reportable 09/25/17 07:49 Ovalocytes 1+ 09/25/17 07:49 Stomatocytes Rare 09/12/17 05:25 Helmet Cells Rare 09/25/17 07:49 Vera-Driscoll Bodies Not Reportable 09/25/17 07:49 Wheelwright Rings Not Reportable 09/25/17 07:49 [place] Cells Not Reportable 09/25/17 07:49 Bite Cells Not Reportable 09/25/17 07:49 Crenated Cell Not Reportable 09/25/17 07:49 Elliptocytes Few 09/25/17 07:49 Acanthocytes (Spur) Not Reportable 09/25/17 07:49 Rouleaux Not Reportable 09/25/17 07:49 Hemoglobin C Crystals Not Reportable 09/25/17 07:49 Schistocytes Rare 09/25/17 07:49 Malaria parasites Not Reportable 09/25/17 07:49 Jovanni Bodies Not Reportable 09/25/17 07:49 Hem Pathologist Commnt No 09/25/17 07:49 PT 14.9 Sec. (12.2-14.9) 09/21/17 07:00 INR 1.11 (0.87-1.13) 09/21/17 07:00 APTT 28.7 Sec. (24.2-36.6) 08/31/17 18:15 POC ABG pH 7.347 (7.35-7.45) L 09/13/17 11:36 ABG pH 7.323 pH Units (7.350-7.450) L 09/09/17 Unknown POC ABG pCO2 34.3 (35-45) L 09/13/17 11:36 ABG pCO2 41.1 mm Hg 09/09/17 Unknown POC ABG pO2 134 (80-105) H 09/13/17 11:36 ABG pO2 94.1 mm Hg (80.0-90.0) H 09/09/17 Unknown POC ABG HCO3 18.8 09/13/17 11:36 ABG HCO3 20.9 mmol/L (20.0-26.0) 09/09/17 Unknown POC ABG Total CO2 20 09/13/17 11:36 POC ABG O2 Sat 99 09/13/17 11:36 ABG O2 Saturation 97.2 % (95.0-99.0) 09/09/17 Unknown ABG O2 Content 10.9 (0.0-44) 09/09/17 Unknown POC ABG Base Excess -7 09/13/17 11:36 ABG Base Excess -4.8 mmol/L (-2.0-3.0) L 09/09/17 Unknown ABG Hemoglobin 8.0 gm/dl (12.0-16.0) L 09/09/17 Unknown ABG Carboxyhemoglobin 2.0 % (0.0-5.0) 09/09/17 Unknown ABG Methemoglobin 0.3 % (0.0-1.5) 09/09/17 Unknown VBG pH 7.462 (7.320-7.420) H 08/08/17 14:52 Oxyhemoglobin 94.9 % (95.0-99.0) L 09/09/17 Unknown FiO2 30 % 09/13/17 11:36 Sodium 137 mmol/L (137-145) 09/25/17 07:49 Potassium 5.3 mmol/L (3.6-5.0) H D 09/25/17 07:49 Chloride 97.7 mmol/L (98-107) L 09/25/17 07:49 Carbon Dioxide 19 mmol/L (22-30) L 09/25/17 07:49 Anion Gap 26 mmol/L 09/25/17 07:49 BUN 90 mg/dL (7-17) H 09/25/17 07:49 Creatinine 2.5 mg/dL (0.7-1.2) H 09/25/17 07:49 Estimated GFR 24 ml/min 09/25/17 07:49 BUN/Creatinine Ratio 36 % 09/25/17 07:49 Glucose 181 mg/dL (65-100) H 09/25/17 07:49 POC Glucose 173 (70-105) H 09/25/17 06:03 Lactic Acid 1.60 mmol/L (0.7-2.0) 08/17/17 11:20 Calcium 8.0 mg/dL (8.4-10.2) L 09/25/17 07:49 Phosphorus 3.80 mg/dL (2.5-4.5) D 09/25/17 07:49 Magnesium 2.30 mg/dL (1.7-2.3) 09/25/17 07:49 Iron 22 ug/dL (37-170) L 09/12/17 05:25 TIBC 81 mcg/dL (250-450) L 09/12/17 05:25 Ferritin > 2000.0 ng/mL (13.0-400.0) H 09/12/17 05:25 Total Bilirubin 0.70 mg/dL (0.1-1.2) 09/22/17 03:37 Direct Bilirubin 0.2 mg/dL (0-0.2) 08/08/17 14:11 Indirect Bilirubin 0.3 mg/dL 08/08/17 14:11 AST 33 units/L (5-40) 09/22/17 03:37 ALT 16 units/L (7-56) 09/22/17 03:37 Alkaline Phosphatase 311 units/L (35-129) H 09/22/17 03:37 Ammonia 25.0 umol/L (25-60) 08/08/17 14:52 Total Creatine Kinase 20 units/L (30-135) L 09/16/17 05:30 Troponin T 0.132 ng/mL (0.00-0.029) H* 08/09/17 13:25 C-Reactive Protein 2.80 mg/dL (0.00-1.30) H 09/06/17 05:30 NT-Pro-B Natriuret Pep 6156 pg/mL (0-900) H 08/08/17 14:11 Total Protein 4.4 g/dL (6.3-8.2) L 09/22/17 03:37 Albumin 2.0 g/dL (3.9-5) L 09/22/17 03:37 Albumin/Globulin Ratio 0.8 % 09/22/17 03:37 Triglycerides 180 mg/dL (2-149) H 09/03/17 04:00 Cholesterol 91 mg/dL (50-199) 08/08/17 21:23 LDL Cholesterol Direct 53 mg/dL (50-130) 08/08/17 21:23 HDL Cholesterol 26 mg/dL (40-59) L 08/08/17 21:23 Cholesterol/HDL Ratio 3.50 % 08/08/17 21:23 Amylase 45 units/L (27-131) 08/16/17 09:50 Lipase 34 units/L (13-60) 08/16/17 09:50 TSH 6.580 mlU/mL (0.270-4.200) H 08/08/17 14:22 Free T4 1.46 ng/dL (0.76-1.46) 08/08/17 14:22 Total Cortisol 28.3 mcg/dL () 09/13/17 12:50 Urine Color Yellow (Yellow) 08/08/17 20:15 Urine Turbidity Turbid (Clear) 08/08/17 20:15 Urine pH 8.0 (5.0-7.0) H 08/08/17 20:15 Ur Specific [place] 1.015 (1.003-1.030) 08/08/17 20:15 Urine Protein 100 mg/dl mg/dL (Negative) 08/08/17 20:15 Urine Glucose (UA) Neg mg/dL (Negative) 08/08/17 20:15 Urine Ketones Neg mg/dL (Negative) 08/08/17 20:15 Urine Blood Mod (Negative) 08/08/17 20:15 Urine Nitrite Neg (Negative) 08/08/17 20:15 Urine Bilirubin Neg (Negative) 08/08/17 20:15 Urine Urobilinogen < 2.0 mg/dL (<2.0) 08/08/17 20:15 Ur Leukocyte Esterase Lg (Negative) 08/08/17 20:15 Urine WBC (Auto) 24.0 /HPF (0.0-6.0) H 08/08/17 20:15 Urine RBC (Auto) 3.0 /HPF (0.0-6.0) 08/08/17 20:15 U Epithel Cells (Auto) 3.0 /HPF (0-13.0) 08/08/17 20:15 Urine Bacteria (Auto) 4+ /HPF (Negative) 08/08/17 20:15 Urine Mucus 3+ /HPF 08/08/17 20:15 Fluid Type Peritoneal 08/08/17 18:18 Fluid Color Straw 08/08/17 18:18 Fluid Appearance Clear 08/08/17 18:18 Fluid pH 7.74 08/08/17 18:18 Fluid WBC 4 /mm3 08/08/17 18:18 Fluid RBC 1 /mm3 08/08/17 18:18 Fluid Seg Neutrophils 12 % 08/08/17 18:18 Fluid Lymphocytes 0 % 08/08/17 18:18 Fluid Reactive Lymphs 0 % 08/08/17 18:18 Fluid Monocytes 1 % 08/08/17 18:18 Fluid Eosinophils 0 % 08/08/17 18:18 Fluid Basophils 0 % 08/08/17 18:18 Fluid Glucose 315 mg/dL (40-70) H 08/08/17 18:18 Random Vancomycin 19.5 ug/mL (0-40.0) 08/22/17 03:40 Hep Bs Antigen Non-reactive (Negative) 08/22/17 03:40 Hepatitis C Antibody Non-reactive (NonReactive) 08/22/17 03:40 Miscellaneous Test Flexitest 1 H 09/06/17 09:57 Blood Type O POSITIVE 09/24/17 04:00 Antibody Screen Negative 09/24/17 04:00 VAN Antibody Screen Negative 09/07/17 17:07 Crossmatch See Detail 09/24/17 04:00
--- NOTE | 2017-09-25 14:14 | Progress Note ---
Assessment and Plan Imp: 1. Acute bacterial peritonitis/abscess s/p PD cath removal and multiple exlaps 2. s/p SBO 3. Acute respiratory failure, hypoxia 4. Morbid obesity, excess cals. 5. ESRD 6. Sepsis -> now SIRS 7. s/p LGIB Rec: 1. Levophed requirement coming down; believe worsening clinical status is primarily due to sepsis/anastomotic leak, and less likely adrenal insufficiency ; patient not healing her wounds including her bowel; recommend continue to remain off steroids unless absolutely necessary 2. Monitor volume status with TPN; remove volume as able with HD 3. Cont. ventilator -> failed PSV today 4. Monitor H/H and for recurrent bleeding; consider more PRBCs for BP support 5. Levophed if necessary to keep MAP > 65 6. Not a candidate for chemical DVT PPx at this point, yet high risk for DVT; foot pumps in place now 7. ABX per ID 8. Prognosis remains poor; no family present today CCT 31 minutes Subjective Date of service: 09/25/17 Principal diagnosis: respiratory failure, sepsis, shock rectal bleeding Interval history: Awake, alert. No complaints although tachypeic on PRVC. On HD, back on Levophed weaned down to 5mcg. Had another exlap with washout and SB enterotomy repair. Active Medications Albuterol (Proventil) 2.5 mg IH Q4HRT PRN PRN Reason: Shortness Of Breath Last Admin: 08/24/17 21:49 Dose: 2.5 mg Dextrose (D50w (25gm) Vial) 50 gm IV PRN PRN PRN Reason: Hypoglycemia Last Admin: 09/15/17 23:57 Dose: 50 gm Heparin Sodium (Porcine) (Heparin 10,000 Units/10 Ml) 2,000 unit IV ISIAH PRN PRN Reason: hemodialysis Last Admin: 09/23/17 14:20 Dose: 2,000 unit Heparin Sodium (Porcine) (Heparin) 5,000 unit IV ISIAH PRN PRN Reason: hemodialysis Last Admin: 09/23/17 14:19 Dose: 5,000 unit Hydromorphone HCl (Dilaudid) 1 mg IV Q4H PRN PRN Reason: Pain , Severe (7-10) Last Admin: 09/23/17 18:02 Dose: 1 mg Hydrophilic Ointment (Vaseline Lip Therapy) 1 applic TP DIRECT PRN PRN Reason: DRY LIPS Last Admin: 09/14/17 11:55 Dose: 1 applic Sodium Chloride (Nacl 0.9%) 100 mls @ 999 mls/hr IV ISIAH PRN PRN Reason: Hypotension Norepinephrine 8 mg/ Sodium (Chloride) 250 mls @ 3.75 mls/hr IV TITR GLORIA; 2 MCG /MIN PRN Reason: Protocol Last Admin: 09/24/17 20:34 Dose: 5 mcg/min, 9.37 mls/hr Fluconazole (Diflucan) 200 mg in 100 mls @ 100 mls/hr IV Q24HR GLORIA PRN Reason: Protocol Last Admin: 09/25/17 10:04 Dose: 100 mls/hr Amino Acids/Electrolytes/Dextrose (Tpn Adult) 1,800 mls @ 75 mls/hr IV DAILY@ 1999 [facility] PRN Reason: Protocol Stop: 09/25/17 19:59 Last Admin: 09/24/17 20:00 Dose: 75 mls/hr Sodium Chloride (Nacl 0.9%) 100 mls @ 999 mls/hr IV ISIAH PRN PRN Reason: Hypotension Meropenem 1,000 mg/ Sodium (Chloride) 100 mls @ 100 mls/hr IV Q24HR GLORIA PRN Reason: Protocol Amino Acids/Electrolytes/Dextrose (Tpn Adult) 1,800 mls @ 75 mls/hr IV DAILY@ 1999 [facility] PRN Reason: Protocol Stop: 09/26/17 19:59 Fat Emulsion Intravenous (Intralipid 20%) 250 mls @ 21 mls/hr IV DAILY@1999 [facility] Stop: 09/26/17 08:00 Insulin Aspart (Novolog) 0 units SUB-Q Q6HR GLORIA PRN Reason: Protocol Last Admin: 09/25/17 06:20 Dose: 3 units Insulin Detemir (Levemir) 45 units SUB-Q DAILY [facility] Last Admin: 09/25/17 10:25 Dose: 45 units Lorazepam (Ativan) 2 mg IV Q6H PRN PRN Reason: Agitation Last Admin: 09/17/17 10:31 Dose: 2 mg Pantoprazole Sodium (Protonix) 40 mg IV QDAY [facility] Last Admin: 09/25/17 10:03 Dose: 40 mg Objective Vital Signs - 12hr 09/25/17 09/25/17 09/25/17 02:15 02:30 02:45 Temperature Pulse Rate 109 H 110 H 109 H Pulse Rate [ Apical] Pulse Rate [ From Monitor] Respiratory 53 H 28 H 33 H Rate Respiratory Rate [ Generalized] Blood Pressure 109/50 90/52 90/52 O2 Sat by Pulse 97 99 Oximetry O2 Sat by Pulse Oximetry [ Anterior Bilateral Throughout] O2 Sat by Pulse Oximetry [ Assessment] 09/25/17 09/25/17 09/25/17 03:00 03:15 03:30 Temperature Pulse Rate 109 H 106 H 112 H Pulse Rate [ Apical] Pulse Rate [ From Monitor] Respiratory 50 H 52 H 51 H Rate Respiratory Rate [ Generalized] Blood Pressure 96/54 96/54 108/68 O2 Sat by Pulse 99 100 96 Oximetry O2 Sat by Pulse Oximetry [ Anterior Bilateral Throughout] O2 Sat by Pulse Oximetry [ Assessment] 09/25/17 09/25/17 09/25/17 03:45 04:00 04:46 Temperature 99.6 F Pulse Rate 110 H 109 H Pulse Rate [ 114 H Apical] Pulse Rate [ From Monitor] Respiratory 55 H 41 H Rate Respiratory Rate [ Generalized] Blood Pressure 108/68 111/53 107/56 O2 Sat by Pulse 98 96 Oximetry O2 Sat by Pulse Oximetry [ Anterior Bilateral Throughout] O2 Sat by Pulse Oximetry [ Assessment] 09/25/17 09/25/17 09/25/17 05:01 05:15 05:31 Temperature Pulse Rate 108 H 100 H 107 H Pulse Rate [ Apical] Pulse Rate [ From Monitor] Respiratory 28 H 34 H 30 H Rate Respiratory Rate [ Generalized] Blood Pressure 107/56 111/53 107/56 O2 Sat by Pulse Oximetry O2 Sat by Pulse Oximetry [ Anterior Bilateral Throughout] O2 Sat by Pulse Oximetry [ Assessment] 09/25/17 09/25/17 09/25/17 05:45 06:01 06:09 Temperature Pulse Rate 106 H 109 H Pulse Rate [ Apical] Pulse Rate [ From Monitor] Respiratory 28 H 28 H Rate Respiratory Rate [ Generalized] Blood Pressure 107/56 107/56 O2 Sat by Pulse 98 Oximetry O2 Sat by Pulse Oximetry [ Anterior Bilateral Throughout] O2 Sat by Pulse Oximetry [ Assessment] 09/25/17 09/25/17 09/25/17 06:15 06:30 06:45 Temperature Pulse Rate 105 H 105 H 102 H Pulse Rate [ Apical] Pulse Rate [ From Monitor] Respiratory 26 H 25 H 26 H Rate Respiratory Rate [ Generalized] Blood Pressure 107/56 108/46 108/46 O2 Sat by Pulse 100 Oximetry O2 Sat by Pulse Oximetry [ Anterior Bilateral Throughout] O2 Sat by Pulse Oximetry [ Assessment] 09/25/17 09/25/17 09/25/17 07:01 07:15 07:30 Temperature Pulse Rate 97 H 102 H 103 H Pulse Rate [ Apical] Pulse Rate [ From Monitor] Respiratory 17 25 H 31 H Rate Respiratory Rate [ Generalized] Blood Pressure 108/46 118/53 129/66 O2 Sat by Pulse 96 100 98 Oximetry O2 Sat by Pulse Oximetry [ Anterior Bilateral Throughout] O2 Sat by Pulse Oximetry [ Assessment] 09/25/17 09/25/17 09/25/17 07:45 08:00 08:15 Temperature 97.5 F L Pulse Rate 106 H 105 H 103 H Pulse Rate [ Apical] Pulse Rate [ 105 H From Monitor] Respiratory 28 H 28 H 27 H Rate Respiratory Rate [ Generalized] Blood Pressure 129/66 105/62 105/62 O2 Sat by Pulse 97 66 L 99 Oximetry O2 Sat by Pulse Oximetry [ Anterior Bilateral Throughout] O2 Sat by Pulse Oximetry [ Assessment] 09/25/17 09/25/17 09/25/17 08:20 08:30 08:45 Temperature Pulse Rate 103 H 104 H Pulse Rate [ Apical] Pulse Rate [ From Monitor] Respiratory 26 H 28 H Rate Respiratory Rate [ Generalized] Blood Pressure 118/64 118/64 O2 Sat by Pulse 100 100 Oximetry O2 Sat by Pulse Oximetry [ Anterior Bilateral Throughout] O2 Sat by Pulse 100 Oximetry [ Assessment] 09/25/17 09/25/17 09/25/17 09:00 09:15 09:30 Temperature Pulse Rate 101 H 104 H 104 H Pulse Rate [ Apical] Pulse Rate [ From Monitor] Respiratory 36 H 27 H 28 H Rate Respiratory Rate [ Generalized] Blood Pressure 116/65 116/65 115/66 O2 Sat by Pulse 100 100 100 Oximetry O2 Sat by Pulse Oximetry [ Anterior Bilateral Throughout] O2 Sat by Pulse Oximetry [ Assessment] 09/25/17 09/25/17 09/25/17 09:45 10:00 10:15 Temperature Pulse Rate 103 H 103 H 100 H Pulse Rate [ Apical] Pulse Rate [ From Monitor] Respiratory 25 H 24 29 H Rate Respiratory 29 H Rate [ Generalized] Blood Pressure 115/66 125/56 115/66 O2 Sat by Pulse 100 100 100 Oximetry O2 Sat by Pulse Oximetry [ Anterior Bilateral Throughout] O2 Sat by Pulse Oximetry [ Assessment] 09/25/17 09/25/17 09/25/17 10:30 10:45 11:00 Temperature Pulse Rate 107 H 103 H 98 H Pulse Rate [ Apical] Pulse Rate [ From Monitor] Respiratory 25 H 22 26 H Rate Respiratory Rate [ Generalized] Blood Pressure 132/65 125/56 128/65 O2 Sat by Pulse 100 100 Oximetry O2 Sat by Pulse Oximetry [ Anterior Bilateral Throughout] O2 Sat by Pulse Oximetry [ Assessment] 09/25/17 09/25/17 09/25/17 11:15 11:20 11:30 Temperature 97.8 F Pulse Rate 100 H 101 H 102 H Pulse Rate [ Apical] Pulse Rate [ From Monitor] Respiratory 26 H 29 H 24 Rate Respiratory Rate [ Generalized] Blood Pressure 132/65 129/64 133/64 O2 Sat by Pulse 100 100 Oximetry O2 Sat by Pulse 100 Oximetry [ Anterior Bilateral Throughout] O2 Sat by Pulse Oximetry [ Assessment] 09/25/17 09/25/17 09/25/17 11:35 11:45 12:00 Temperature 97.8 F Pulse Rate 101 H 101 H 111 H Pulse Rate [ Apical] Pulse Rate [ 112 H From Monitor] Respiratory 30 H 29 H Rate Respiratory Rate [ Generalized] Blood Pressure 129/64 122/44 120/54 O2 Sat by Pulse 100 88 Oximetry O2 Sat by Pulse Oximetry [ Anterior Bilateral Throughout] O2 Sat by Pulse Oximetry [ Assessment] 09/25/17 09/25/17 09/25/17 12:15 12:30 12:35 Temperature Pulse Rate 113 H 113 H 110 H Pulse Rate [ Apical] Pulse Rate [ From Monitor] Respiratory Rate Respiratory Rate [ Generalized] Blood Pressure 114/62 77/58 85/55 O2 Sat by Pulse 100 Oximetry O2 Sat by Pulse Oximetry [ Anterior Bilateral Throughout] O2 Sat by Pulse Oximetry [ Assessment] 09/25/17 09/25/17 09/25/17 12:45 13:00 13:13 Temperature Pulse Rate 109 H 113 H 111 H Pulse Rate [ Apical] Pulse Rate [ From Monitor] Respiratory Rate Respiratory Rate [ Generalized] Blood Pressure 100/50 112/62 125/92 O2 Sat by Pulse Oximetry O2 Sat by Pulse Oximetry [ Anterior Bilateral Throughout] O2 Sat by Pulse Oximetry [ Assessment] 09/25/17 09/25/17 13:30 13:47 Temperature Pulse Rate 110 H 109 H Pulse Rate [ Apical] Pulse Rate [ From Monitor] Respiratory Rate Respiratory Rate [ Generalized] Blood Pressure 77/39 156/97 O2 Sat by Pulse Oximetry O2 Sat by Pulse Oximetry [ Anterior Bilateral Throughout] O2 Sat by Pulse Oximetry [ Assessment] Constitutional: other (critically ill on vent, obese) Eyes: non-icteric ENT: oropharynx dry Neck: supple, other (trach in position, no bleeding) Effort: mildly labored Ascultation: Bilateral: wheezes (faint expiratory wheezes), other (coarse BS bilaterally) Cardiovascular: other (tachy, RR; no mrg) Gastrointestinal: absent bowel sounds, non-tender, other (abdominal incision with dressing , obese. Drain in place, no bleeding; ostomy with brown stool) Integumentary: normal Extremities: no cyanosis, pink and warm, edema Neurologic: non-focal exam, pupils equal and round Psychiatric: mood appropriate, affect normal CBC and BMP: 09/25/17 07:49 09/25/17 07:49 ABG, PT/INR, D-dimer: ABG POC ABG pH 7.347 (7.35-7.45) L 09/13/17 11:36 ABG pH 7.323 pH Units (7.350-7.450) L 09/09/17 Unknown POC ABG pCO2 34.3 (35-45) L 09/13/17 11:36 ABG pCO2 41.1 mm Hg 09/09/17 Unknown POC ABG pO2 134 (80-105) H 09/13/17 11:36 ABG pO2 94.1 mm Hg (80.0-90.0) H 09/09/17 Unknown POC ABG HCO3 18.8 09/13/17 11:36 POC ABG Total CO2 20 09/13/17 11:36 POC ABG O2 Sat 99 09/13/17 11:36 ABG O2 Saturation 97.2 % (95.0-99.0) 09/09/17 Unknown PT/INR, D-dimer PT 14.9 Sec. (12.2-14.9) 09/21/17 07:00 INR 1.11 (0.87-1.13) 09/21/17 07:00 Abnormal lab findings: Abnormal Labs 08/08/17 08/08/17 08/09/17 21:23 21:31 11:19 WBC 15.7 H RBC 2.93 L Hgb 8.7 L Hct 26.8 L MCV MCH RDW 19.2 H Plt Count Lymph % (Auto) [place] % (Auto) [place] # Seg Neutrophils % Seg Neuts % (Manual) Lymphocytes % (Manual) Monocytes % (Manual) Nucleated RBC % Seg Neutrophils # Seg Neutrophils # Man Lymphocytes # (Manual) Monocytes # (Manual) Eosinophils # (Manual) Basophils # (Manual) PT INR POC ABG pH 7.490 H ABG pH POC ABG pCO2 POC ABG pO2 122 H ABG pO2 ABG O2 Saturation ABG Base Excess ABG Hemoglobin Oxyhemoglobin Sodium Potassium Chloride Carbon Dioxide BUN Creatinine Glucose POC Glucose Calcium Phosphorus Magnesium Iron TIBC Ferritin Total Bilirubin AST ALT Alkaline Phosphatase Total Creatine Kinase Troponin T 0.133 H* C-Reactive Protein Total Protein Albumin Triglycerides HDL Cholesterol 26 L Miscellaneous Test Crossmatch 08/09/17 08/10/17 08/10/17 13:25 04:45 04:45 WBC 15.5 H RBC 2.97 L Hgb 8.9 L Hct 27.0 L MCV MCH RDW 19.2 H Plt Count Lymph % (Auto) [place] % (Auto) [place] # Seg Neutrophils % Seg Neuts % (Manual) 73.0 H Lymphocytes % (Manual) 7.0 L Monocytes % (Manual) 14.0 H Nucleated RBC % Seg Neutrophils # Seg Neutrophils # Man 11.3 H Lymphocytes # (Manual) 1.1 L Monocytes # (Manual) 2.2 H Eosinophils # (Manual) Basophils # (Manual) 0.2 H PT INR POC ABG pH ABG pH POC ABG pCO2 POC ABG pO2 ABG pO2 ABG O2 Saturation ABG Base Excess ABG Hemoglobin Oxyhemoglobin Sodium Potassium 3.3 L Chloride 97.3 L Carbon Dioxide 21 L BUN 23 H Creatinine 6.5 H Glucose POC Glucose Calcium 7.3 L Phosphorus Magnesium Iron TIBC Ferritin Total Bilirubin AST ALT Alkaline Phosphatase 138 H Total Creatine Kinase Troponin T 0.132 H* C-Reactive Protein Total Protein 4.8 L Albumin 1.4 L Triglycerides HDL Cholesterol Miscellaneous Test Crossmatch 08/11/17 08/11/17 08/12/17 04:00 04:00 05:50 WBC 19.3 H RBC 3.10 L Hgb 9.5 L Hct 28.2 L MCV MCH RDW 19.2 H Plt Count 463 H Lymph % (Auto) 7.5 L [place] % (Auto) 14.6 H [place] # 2.8 H Seg Neutrophils % 77.0 H Seg Neuts % (Manual) Lymphocytes % (Manual) Monocytes % (Manual) Nucleated RBC % Seg Neutrophils # 14.8 H Seg Neutrophils # Man Lymphocytes # (Manual) Monocytes # (Manual) Eosinophils # (Manual) Basophils # (Manual) PT INR POC ABG pH ABG pH POC ABG pCO2 POC ABG pO2 ABG pO2 ABG O2 Saturation ABG Base Excess ABG Hemoglobin Oxyhemoglobin Sodium 136 L 136 L Potassium 3.3 L Chloride 96.3 L 96.6 L Carbon Dioxide BUN 26 H 26 H Creatinine 6.4 H 6.2 H Glucose 135 H 133 H POC Glucose Calcium 8.2 L Phosphorus Magnesium 1.30 L Iron TIBC Ferritin Total Bilirubin AST ALT Alkaline Phosphatase 139 H Total Creatine Kinase Troponin T C-Reactive Protein Total Protein 5.5 L Albumin 1.7 L Triglycerides HDL Cholesterol Miscellaneous Test Crossmatch 08/12/17 08/12/17 08/12/17 05:50 05:50 05:50 WBC 20.1 H RBC 3.06 L Hgb 9.3 L Hct 27.9 L MCV MCH RDW 18.4 H Plt Count 471 H Lymph % (Auto) [place] % (Auto) [place] # Seg Neutrophils % Seg Neuts % (Manual) 85.0 H Lymphocytes % (Manual) 8.0 L Monocytes % (Manual) Nucleated RBC % Seg Neutrophils # Seg Neutrophils # Man 17.1 H Lymphocytes # (Manual) Monocytes # (Manual) 1.0 H Eosinophils # (Manual) Basophils # (Manual) PT 15.2 H INR 1.14 H POC ABG pH ABG pH POC ABG pCO2 POC ABG pO2 ABG pO2 ABG O2 Saturation ABG Base Excess ABG Hemoglobin Oxyhemoglobin Sodium Potassium Chloride Carbon Dioxide BUN Creatinine Glucose POC Glucose Calcium Phosphorus Magnesium Iron TIBC Ferritin Total Bilirubin AST ALT Alkaline Phosphatase Total Creatine Kinase Troponin T C-Reactive Protein 28.90 H Total Protein Albumin Triglycerides HDL Cholesterol Miscellaneous Test Crossmatch 08/12/17 08/13/17 08/13/17 16:23 06:14 06:14 WBC 21.8 H RBC 3.11 L Hgb 9.4 L Hct 28.2 L MCV MCH RDW 18.2 H Plt Count 492 H Lymph % (Auto) [place] % (Auto) [place] # Seg Neutrophils % Seg Neuts % (Manual) 73.0 H Lymphocytes % (Manual) 2.0 L Monocytes % (Manual) 15 H Nucleated RBC % Seg Neutrophils # Seg Neutrophils # Man 15.9 H Lymphocytes # (Manual) 0.4 L Monocytes # (Manual) 2.4 H Eosinophils # (Manual) Basophils # (Manual) PT INR POC ABG pH ABG pH POC ABG pCO2 POC ABG pO2 ABG pO2 ABG O2 Saturation ABG Base Excess ABG Hemoglobin Oxyhemoglobin Sodium Potassium Chloride 96.2 L Carbon Dioxide BUN 28 H Creatinine 5.6 H Glucose 114 H POC Glucose Calcium Phosphorus Magnesium Iron TIBC Ferritin Total Bilirubin AST ALT Alkaline Phosphatase Total Creatine Kinase Troponin T C-Reactive Protein 26.10 H Total Protein Albumin Triglycerides HDL Cholesterol Miscellaneous Test Crossmatch 08/13/17 08/14/17 08/14/17 16:39 04:00 04:00 WBC 22.1 H RBC 3.25 L Hgb 9.9 L Hct 29.5 L MCV MCH RDW 17.9 H Plt Count 525 H Lymph % (Auto) [place] % (Auto) [place] # Seg Neutrophils % Seg Neuts % (Manual) 74.0 H Lymphocytes % (Manual) 8.0 L Monocytes % (Manual) 12.0 H Nucleated RBC % Seg Neutrophils # Seg Neutrophils # Man 16.4 H Lymphocytes # (Manual) Monocytes # (Manual) 2.7 H Eosinophils # (Manual) Basophils # (Manual) PT INR POC ABG pH ABG pH POC ABG pCO2 POC ABG pO2 ABG pO2 ABG O2 Saturation ABG Base Excess ABG Hemoglobin Oxyhemoglobin Sodium 134 L Potassium 3.3 L Chloride 93.3 L Carbon Dioxide BUN 27 H Creatinine 6.0 H Glucose 152 H POC Glucose 151 H Calcium Phosphorus Magnesium Iron TIBC Ferritin Total Bilirubin AST ALT Alkaline Phosphatase Total Creatine Kinase Troponin T C-Reactive Protein Total Protein Albumin Triglycerides HDL Cholesterol Miscellaneous Test Crossmatch 08/15/17 08/16/17 08/16/17 09:10 09:50 09:50 WBC 31.1 H RBC 3.21 L Hgb 9.6 L Hct 29.3 L MCV MCH RDW 18.1 H Plt Count 642 H Lymph % (Auto) [place] % (Auto) [place] # Seg Neutrophils % Seg Neuts % (Manual) 74.0 H Lymphocytes % (Manual) 4.0 L Monocytes % (Manual) 9.0 H Nucleated RBC % Seg Neutrophils # Seg Neutrophils # Man 23.0 H Lymphocytes # (Manual) Monocytes # (Manual) 2.8 H Eosinophils # (Manual) Basophils # (Manual) PT INR POC ABG pH ABG pH POC ABG pCO2 POC ABG pO2 ABG pO2 ABG O2 Saturation ABG Base Excess ABG Hemoglobin Oxyhemoglobin Sodium 136 L 136 L Potassium 3.5 L Chloride 97.6 L 94.9 L Carbon Dioxide BUN 27 H 28 H Creatinine 5.6 H 5.5 H Glucose 117 H 103 H POC Glucose Calcium Phosphorus Magnesium Iron TIBC Ferritin Total Bilirubin AST ALT Alkaline Phosphatase 137 H Total Creatine Kinase Troponin T C-Reactive Protein Total Protein 5.4 L Albumin 1.5 L Triglycerides HDL Cholesterol Miscellaneous Test Crossmatch 08/16/17 08/17/17 08/17/17 09:50 05:00 06:26 WBC RBC Hgb Hct MCV MCH RDW Plt Count Lymph % (Auto) [place] % (Auto) [place] # Seg Neutrophils % Seg Neuts % (Manual) Lymphocytes % (Manual) Monocytes % (Manual) Nucleated RBC % Seg Neutrophils # Seg Neutrophils # Man Lymphocytes # (Manual) Monocytes # (Manual) Eosinophils # (Manual) Basophils # (Manual) PT INR POC ABG pH ABG pH POC ABG pCO2 POC ABG pO2 ABG pO2 ABG O2 Saturation ABG Base Excess ABG Hemoglobin Oxyhemoglobin Sodium 134 L Potassium 3.0 L Chloride 97.8 L Carbon Dioxide BUN 30 H Creatinine 5.3 H Glucose 147 H POC Glucose 165 H Calcium 7.5 L Phosphorus Magnesium Iron TIBC Ferritin Total Bilirubin AST ALT Alkaline Phosphatase Total Creatine Kinase Troponin T C-Reactive Protein 32.30 H Total Protein Albumin Triglycerides HDL Cholesterol Miscellaneous Test Crossmatch 08/17/17 08/17/17 08/17/17 10:56 11:20 11:20 WBC 39.1 H RBC 3.10 L Hgb 9.2 L Hct 28.6 L MCV MCH RDW 18.3 H Plt Count 580 H Lymph % (Auto) [place] % (Auto) [place] # Seg Neutrophils % Seg Neuts % (Manual) 89.5 H Lymphocytes % (Manual) 3.5 L Monocytes % (Manual) Nucleated RBC % Seg Neutrophils # Seg Neutrophils # Man 35.0 H Lymphocytes # (Manual) Monocytes # (Manual) 2.5 H Eosinophils # (Manual) Basophils # (Manual) 0.2 H PT INR POC ABG pH 7.464 H ABG pH POC ABG pCO2 34.1 L POC ABG pO2 75 L ABG pO2 ABG O2 Saturation ABG Base Excess ABG Hemoglobin Oxyhemoglobin Sodium Potassium Chloride Carbon Dioxide BUN Creatinine Glucose POC Glucose Calcium Phosphorus Magnesium Iron TIBC Ferritin Total Bilirubin AST ALT Alkaline Phosphatase Total Creatine Kinase Troponin T C-Reactive Protein Total Protein Albumin Triglycerides HDL Cholesterol Miscellaneous Test Flexitest 1 H Crossmatch 08/17/17 08/17/17 08/17/17 11:20 16:57 20:20 WBC 34.4 H RBC 2.81 L Hgb 8.4 L Hct 26.0 L MCV MCH RDW 17.8 H Plt Count 455 H Lymph % (Auto) [place] % (Auto) [place] # Seg Neutrophils % Seg Neuts % (Manual) Lymphocytes % (Manual) 3.5 L Monocytes % (Manual) Nucleated RBC % 5.0 H Seg Neutrophils # Seg Neutrophils # Man 16.5 H Lymphocytes # (Manual) Monocytes # (Manual) 1.0 H Eosinophils # (Manual) Basophils # (Manual) PT 16.0 H INR 1.29 H POC ABG pH ABG pH POC ABG pCO2 POC ABG pO2 ABG pO2 ABG O2 Saturation ABG Base Excess ABG Hemoglobin Oxyhemoglobin Sodium 135 L Potassium 2.9 L* Chloride Carbon Dioxide 20 L BUN 32 H Creatinine 5.4 H Glucose 129 H POC Glucose Calcium 7.5 L Phosphorus Magnesium 1.50 L Iron TIBC Ferritin Total Bilirubin AST 85 H ALT Alkaline Phosphatase Total Creatine Kinase Troponin T C-Reactive Protein Total Protein 4.0 L D Albumin 1.6 L Triglycerides HDL Cholesterol Miscellaneous Test Crossmatch 08/17/17 08/17/17 08/18/17 20:54 23:47 04:26 WBC RBC Hgb Hct MCV MCH RDW Plt Count Lymph % (Auto) [place] % (Auto) [place] # Seg Neutrophils % Seg Neuts % (Manual) Lymphocytes % (Manual) Monocytes % (Manual) Nucleated RBC % Seg Neutrophils # Seg Neutrophils # Man Lymphocytes # (Manual) Monocytes # (Manual) Eosinophils # (Manual) Basophils # (Manual) PT INR POC ABG pH 7.557 H ABG pH POC ABG pCO2 23.1 L 29.0 L POC ABG pO2 187 H 148 H ABG pO2 ABG O2 Saturation ABG Base Excess ABG Hemoglobin Oxyhemoglobin Sodium Potassium Chloride Carbon Dioxide BUN Creatinine Glucose POC Glucose 188 H Calcium Phosphorus Magnesium Iron TIBC Ferritin Total Bilirubin AST ALT Alkaline Phosphatase Total Creatine Kinase Troponin T C-Reactive Protein Total Protein Albumin Triglycerides HDL Cholesterol Miscellaneous Test Crossmatch 08/18/17 08/18/17 08/18/17 05:51 11:44 17:07 WBC RBC Hgb Hct MCV MCH RDW Plt Count Lymph % (Auto) [place] % (Auto) [place] # Seg Neutrophils % Seg Neuts % (Manual) Lymphocytes % (Manual) Monocytes % (Manual) Nucleated RBC % Seg Neutrophils # Seg Neutrophils # Man Lymphocytes # (Manual) Monocytes # (Manual) Eosinophils # (Manual) Basophils # (Manual) PT INR POC ABG pH ABG pH POC ABG pCO2 POC ABG pO2 ABG pO2 ABG O2 Saturation ABG Base Excess ABG Hemoglobin Oxyhemoglobin Sodium Potassium Chloride Carbon Dioxide BUN Creatinine Glucose POC Glucose 202 H 195 H 182 H Calcium Phosphorus Magnesium Iron TIBC Ferritin Total Bilirubin AST ALT Alkaline Phosphatase Total Creatine Kinase Troponin T C-Reactive Protein Total Protein Albumin Triglycerides HDL Cholesterol Miscellaneous Test Crossmatch 08/18/17 08/18/17 08/18/17 23:45 Unknown Unknown WBC 39.0 H RBC 2.84 L Hgb 8.4 L Hct 26.5 L MCV MCH RDW 18.0 H Plt Count 476 H Lymph % (Auto) [place] % (Auto) [place] # Seg Neutrophils % Seg Neuts % (Manual) Lymphocytes % (Manual) 7.0 L Monocytes % (Manual) 10.0 H Nucleated RBC % 3.0 H Seg Neutrophils # Seg Neutrophils # Man 15.6 H Lymphocytes # (Manual) Monocytes # (Manual) 3.9 H Eosinophils # (Manual) Basophils # (Manual) PT INR POC ABG pH ABG pH POC ABG pCO2 POC ABG pO2 ABG pO2 ABG O2 Saturation ABG Base Excess ABG Hemoglobin Oxyhemoglobin Sodium Potassium Chloride Carbon Dioxide 19 L BUN 34 H Creatinine 5.6 H Glucose 201 H POC Glucose 163 H Calcium 7.8 L Phosphorus 1.90 L D Magnesium 1.60 L Iron TIBC Ferritin Total Bilirubin AST ALT Alkaline Phosphatase Total Creatine Kinase Troponin T C-Reactive Protein Total Protein Albumin Triglycerides HDL Cholesterol Miscellaneous Test Crossmatch 08/19/17 08/19/17 08/19/17 04:18 05:00 05:00 WBC 40.0 H RBC 2.46 L Hgb 7.3 L Hct 22.6 L MCV MCH RDW 18.1 H Plt Count Lymph % (Auto) [place] % (Auto) [place] # Seg Neutrophils % Seg Neuts % (Manual) Lymphocytes % (Manual) 8.0 L Monocytes % (Manual) Nucleated RBC % 2.0 H Seg Neutrophils # Seg Neutrophils # Man 16.4 H Lymphocytes # (Manual) Monocytes # (Manual) 1.2 H Eosinophils # (Manual) 1.2 H Basophils # (Manual) PT INR POC ABG pH 7.463 H ABG pH POC ABG pCO2 29.7 L POC ABG pO2 134 H ABG pO2 ABG O2 Saturation ABG Base Excess ABG Hemoglobin Oxyhemoglobin Sodium Potassium 5.1 H D Chloride Carbon Dioxide 20 L BUN 40 H Creatinine 5.3 H Glucose 128 H POC Glucose Calcium 7.8 L Phosphorus 1.90 L Magnesium Iron TIBC Ferritin Total Bilirubin AST ALT Alkaline Phosphatase Total Creatine Kinase Troponin T C-Reactive Protein Total Protein Albumin Triglycerides HDL Cholesterol Miscellaneous Test Crossmatch 08/19/17 08/19/17 08/19/17 05:19 07:37 09:52 WBC 45.0 H* RBC 2.50 L Hgb 7.5 L Hct 24.5 L MCV 98 H MCH RDW 18.4 H Plt Count Lymph % (Auto) [place] % (Auto) [place] # Seg Neutrophils % Seg Neuts % (Manual) 81.5 H Lymphocytes % (Manual) 4.0 L Monocytes % (Manual) Nucleated RBC % 1.0 H Seg Neutrophils # Seg Neutrophils # Man 36.7 H Lymphocytes # (Manual) Monocytes # (Manual) Eosinophils # (Manual) Basophils # (Manual) PT INR POC ABG pH ABG pH POC ABG pCO2 POC ABG pO2 ABG pO2 ABG O2 Saturation ABG Base Excess ABG Hemoglobin Oxyhemoglobin Sodium Potassium Chloride Carbon Dioxide BUN Creatinine Glucose POC Glucose 142 H Calcium Phosphorus Magnesium Iron TIBC Ferritin Total Bilirubin AST ALT Alkaline Phosphatase Total Creatine Kinase Troponin T C-Reactive Protein 34.20 H Total Protein Albumin Triglycerides HDL Cholesterol Miscellaneous Test Crossmatch 08/19/17 08/19/1717 11:16 18:12 00:35 WBC RBC Hgb Hct MCV MCH RDW Plt Count Lymph % (Auto) [place] % (Auto) [place] # Seg Neutrophils % Seg Neuts % (Manual) Lymphocytes % (Manual) Monocytes % (Manual) Nucleated RBC % Seg Neutrophils # Seg Neutrophils # Man Lymphocytes # (Manual) Monocytes # (Manual) Eosinophils # (Manual) Basophils # (Manual) PT INR POC ABG pH ABG pH POC ABG pCO2 POC ABG pO2 ABG pO2 ABG O2 Saturation ABG Base Excess ABG Hemoglobin Oxyhemoglobin Sodium Potassium Chloride Carbon Dioxide BUN Creatinine Glucose POC Glucose 143 H 137 H 164 H Calcium Phosphorus Magnesium Iron TIBC Ferritin Total Bilirubin AST ALT Alkaline Phosphatase Total Creatine Kinase Troponin T C-Reactive Protein Total Protein Albumin Triglycerides HDL Cholesterol Miscellaneous Test Crossmatch 08/20/17 08/20/17 08/20/17 03:20 03:20 04:00 WBC 48.0 H* RBC 2.55 L Hgb 7.6 L Hct 23.4 L MCV MCH RDW 18.4 H Plt Count Lymph % (Auto) [place] % (Auto) [place] # Seg Neutrophils % Seg Neuts % (Manual) 90.0 H Lymphocytes % (Manual) 3.0 L Monocytes % (Manual) Nucleated RBC % Seg Neutrophils # Seg Neutrophils # Man 43.2 H Lymphocytes # (Manual) Monocytes # (Manual) 1.4 H Eosinophils # (Manual) 0.5 H Basophils # (Manual) PT INR POC ABG pH 7.499 H ABG pH POC ABG pCO2 29.1 L POC ABG pO2 ABG pO2 ABG O2 Saturation ABG Base Excess ABG Hemoglobin Oxyhemoglobin Sodium 135 L Potassium Chloride Carbon Dioxide BUN 28 H Creatinine 4.0 H Glucose 140 H POC Glucose Calcium 8.0 L Phosphorus 1.70 L Magnesium 1.60 L Iron TIBC Ferritin Total Bilirubin AST ALT Alkaline Phosphatase Total Creatine Kinase Troponin T C-Reactive Protein Total Protein Albumin Triglycerides HDL Cholesterol Miscellaneous Test Crossmatch 08/20/17 08/20/17 08/20/17 05:02 12:05 13:12 WBC RBC Hgb Hct MCV MCH RDW Plt Count Lymph % (Auto) [place] % (Auto) [place] # Seg Neutrophils % Seg Neuts % (Manual) Lymphocytes % (Manual) Monocytes % (Manual) Nucleated RBC % Seg Neutrophils # Seg Neutrophils # Man Lymphocytes # (Manual) Monocytes # (Manual) Eosinophils # (Manual) Basophils # (Manual) PT INR POC ABG pH 7.537 H ABG pH POC ABG pCO2 27.9 L POC ABG pO2 79 L ABG pO2 ABG O2 Saturation ABG Base Excess ABG Hemoglobin Oxyhemoglobin Sodium Potassium Chloride Carbon Dioxide BUN Creatinine Glucose POC Glucose 158 H 203 H Calcium Phosphorus Magnesium Iron TIBC Ferritin Total Bilirubin AST ALT Alkaline Phosphatase Total Creatine Kinase Troponin T C-Reactive Protein Total Protein Albumin Triglycerides HDL Cholesterol Miscellaneous Test Crossmatch 08/20/17 08/21/17 08/21/17 17:13 00:47 03:14 WBC RBC Hgb Hct MCV MCH RDW Plt Count Lymph % (Auto) [place] % (Auto) [place] # Seg Neutrophils % Seg Neuts % (Manual) Lymphocytes % (Manual) Monocytes % (Manual) Nucleated RBC % Seg Neutrophils # Seg Neutrophils # Man Lymphocytes # (Manual) Monocytes # (Manual) Eosinophils # (Manual) Basophils # (Manual) PT INR POC ABG pH 7.481 H ABG pH POC ABG pCO2 29.6 L POC ABG pO2 ABG pO2 ABG O2 Saturation ABG Base Excess ABG Hemoglobin Oxyhemoglobin Sodium Potassium Chloride Carbon Dioxide BUN Creatinine Glucose POC Glucose 188 H 109 H Calcium Phosphorus Magnesium Iron TIBC Ferritin Total Bilirubin AST ALT Alkaline Phosphatase Total Creatine Kinase Troponin T C-Reactive Protein Total Protein Albumin Triglycerides HDL Cholesterol Miscellaneous Test Crossmatch 08/21/17 08/21/17 08/21/17 05:05 06:50 06:50 WBC 44.7 H* RBC 2.41 L Hgb 7.1 L Hct 22.1 L MCV MCH RDW 18.3 H Plt Count Lymph % (Auto) [place] % (Auto) [place] # Seg Neutrophils % Seg Neuts % (Manual) 89.0 H Lymphocytes % (Manual) 0 L Monocytes % (Manual) Nucleated RBC % 1.0 H Seg Neutrophils # Seg Neutrophils # Man 39.8 H Lymphocytes # (Manual) 0.0 L Monocytes # (Manual) 1.3 H Eosinophils # (Manual) Basophils # (Manual) PT INR POC ABG pH ABG pH POC ABG pCO2 POC ABG pO2 ABG pO2 ABG O2 Saturation ABG Base Excess ABG Hemoglobin Oxyhemoglobin Sodium 135 L Potassium Chloride Carbon Dioxide BUN 39 H Creatinine 4.4 H Glucose 147 H POC Glucose 166 H Calcium 8.1 L Phosphorus Magnesium Iron TIBC Ferritin Total Bilirubin AST ALT < 5 L Alkaline Phosphatase 164 H Total Creatine Kinase Troponin T C-Reactive Protein Total Protein 4.7 L Albumin 1.4 L Triglycerides HDL Cholesterol Miscellaneous Test Crossmatch 08/21/17 08/21/17 08/21/17 08:00 12:21 17:02 WBC RBC Hgb Hct MCV MCH RDW Plt Count Lymph % (Auto) [place] % (Auto) [place] # Seg Neutrophils % Seg Neuts % (Manual) Lymphocytes % (Manual) Monocytes % (Manual) Nucleated RBC % Seg Neutrophils # Seg Neutrophils # Man Lymphocytes # (Manual) Monocytes # (Manual) Eosinophils # (Manual) Basophils # (Manual) PT INR POC ABG pH ABG pH POC ABG pCO2 POC ABG pO2 ABG pO2 ABG O2 Saturation ABG Base Excess ABG Hemoglobin Oxyhemoglobin Sodium Potassium Chloride Carbon Dioxide BUN Creatinine Glucose POC Glucose 147 H 135 H Calcium Phosphorus Magnesium Iron TIBC Ferritin Total Bilirubin AST ALT Alkaline Phosphatase Total Creatine Kinase Troponin T C-Reactive Protein Total Protein Albumin Triglycerides HDL Cholesterol Miscellaneous Test Crossmatch See Detail 08/21/17 08/22/17 08/22/17 23:38 03:40 03:40 WBC 42.5 H* RBC 2.88 L Hgb 8.5 L Hct 26.3 L MCV MCH RDW 17.9 H Plt Count Lymph % (Auto) [place] % (Auto) [place] # Seg Neutrophils % Seg Neuts % (Manual) Lymphocytes % (Manual) 5.0 L Monocytes % (Manual) Nucleated RBC % Seg Neutrophils # Seg Neutrophils # Man 19.6 H Lymphocytes # (Manual) Monocytes # (Manual) 2.6 H Eosinophils # (Manual) Basophils # (Manual) PT INR POC ABG pH ABG pH POC ABG pCO2 POC ABG pO2 ABG pO2 ABG O2 Saturation ABG Base Excess ABG Hemoglobin Oxyhemoglobin Sodium Potassium 3.3 L D Chloride Carbon Dioxide BUN 27 H Creatinine 2.9 H Glucose 144 H POC Glucose 251 H Calcium 8.0 L Phosphorus 2.40 L Magnesium Iron TIBC Ferritin Total Bilirubin AST ALT Alkaline Phosphatase Total Creatine Kinase Troponin T C-Reactive Protein Total Protein Albumin Triglycerides HDL Cholesterol Miscellaneous Test Crossmatch 08/22/17 08/22/17 08/22/17 06:37 08:50 11:25 WBC RBC Hgb Hct MCV MCH RDW Plt Count Lymph % (Auto) [place] % (Auto) [place] # Seg Neutrophils % Seg Neuts % (Manual) Lymphocytes % (Manual) Monocytes % (Manual) Nucleated RBC % Seg Neutrophils # Seg Neutrophils # Man Lymphocytes # (Manual) Monocytes # (Manual) Eosinophils # (Manual) Basophils # (Manual) PT INR POC ABG pH ABG pH POC ABG pCO2 POC ABG pO2 ABG pO2 ABG O2 Saturation ABG Base Excess ABG Hemoglobin Oxyhemoglobin Sodium Potassium Chloride Carbon Dioxide BUN Creatinine Glucose POC Glucose 152 H 175 H Calcium Phosphorus Magnesium Iron TIBC Ferritin Total Bilirubin AST ALT Alkaline Phosphatase Total Creatine Kinase Troponin T C-Reactive Protein Total Protein Albumin Triglycerides HDL Cholesterol Miscellaneous Test Flexitest 1 H Crossmatch 08/22/17 08/22/17 08/22/17 16:25 17:56 23:03 WBC RBC Hgb Hct MCV MCH RDW Plt Count Lymph % (Auto) [place] % (Auto) [place] # Seg Neutrophils % Seg Neuts % (Manual) Lymphocytes % (Manual) Monocytes % (Manual) Nucleated RBC % Seg Neutrophils # Seg Neutrophils # Man Lymphocytes # (Manual) Monocytes # (Manual) Eosinophils # (Manual) Basophils # (Manual) PT INR POC ABG pH ABG pH POC ABG pCO2 POC ABG pO2 ABG pO2 ABG O2 Saturation ABG Base Excess ABG Hemoglobin Oxyhemoglobin Sodium Potassium Chloride Carbon Dioxide BUN Creatinine Glucose POC Glucose 232 H 192 H Calcium Phosphorus Magnesium Iron TIBC Ferritin Total Bilirubin AST ALT Alkaline Phosphatase Total Creatine Kinase Troponin T C-Reactive Protein 30.70 H Total Protein Albumin Triglycerides HDL Cholesterol Miscellaneous Test Crossmatch 08/23/17 08/23/17 08/23/17 05:36 08:50 12:14 WBC RBC Hgb Hct MCV MCH RDW Plt Count Lymph % (Auto) [place] % (Auto) [place] # Seg Neutrophils % Seg Neuts % (Manual) Lymphocytes % (Manual) Monocytes % (Manual) Nucleated RBC % Seg Neutrophils # Seg Neutrophils # Man Lymphocytes # (Manual) Monocytes # (Manual) Eosinophils # (Manual) Basophils # (Manual) PT INR POC ABG pH ABG pH POC ABG pCO2 POC ABG pO2 ABG pO2 ABG O2 Saturation ABG Base Excess ABG Hemoglobin Oxyhemoglobin Sodium Potassium Chloride 107.1 H Carbon Dioxide BUN 49 H Creatinine 3.3 H Glucose 172 H POC Glucose 206 H 238 H Calcium Phosphorus Magnesium 2.40 H Iron TIBC Ferritin Total Bilirubin AST ALT Alkaline Phosphatase Total Creatine Kinase Troponin T C-Reactive Protein Total Protein Albumin Triglycerides HDL Cholesterol Miscellaneous Test Crossmatch 08/23/17 08/23/17 08/24/17 17:21 23:13 04:00 WBC 34.2 H RBC 2.86 L Hgb 8.4 L Hct 25.9 L MCV MCH RDW 17.9 H Plt Count Lymph % (Auto) [place] % (Auto) [place] # Seg Neutrophils % Seg Neuts % (Manual) 85.0 H Lymphocytes % (Manual) 0.5 L Monocytes % (Manual) Nucleated RBC % 1.0 H Seg Neutrophils # Seg Neutrophils # Man 29.1 H Lymphocytes # (Manual) 0.2 L Monocytes # (Manual) 2.4 H Eosinophils # (Manual) Basophils # (Manual) PT INR POC ABG pH ABG pH POC ABG pCO2 POC ABG pO2 ABG pO2 ABG O2 Saturation ABG Base Excess ABG Hemoglobin Oxyhemoglobin Sodium Potassium Chloride Carbon Dioxide BUN Creatinine Glucose POC Glucose 226 H 183 H Calcium Phosphorus Magnesium Iron TIBC Ferritin Total Bilirubin AST ALT Alkaline Phosphatase Total Creatine Kinase Troponin T C-Reactive Protein Total Protein Albumin Triglycerides HDL Cholesterol Miscellaneous Test Crossmatch 08/24/17 08/24/17 08/24/17 05:06 09:30 12:04 WBC RBC Hgb Hct MCV MCH RDW Plt Count Lymph % (Auto) [place] % (Auto) [place] # Seg Neutrophils % Seg Neuts % (Manual) Lymphocytes % (Manual) Monocytes % (Manual) Nucleated RBC % Seg Neutrophils # Seg Neutrophils # Man Lymphocytes # (Manual) Monocytes # (Manual) Eosinophils # (Manual) Basophils # (Manual) PT INR POC ABG pH ABG pH POC ABG pCO2 POC ABG pO2 ABG pO2 ABG O2 Saturation ABG Base Excess ABG Hemoglobin Oxyhemoglobin Sodium Potassium Chloride Carbon Dioxide BUN 46 H Creatinine 2.5 H Glucose 176 H POC Glucose 201 H 181 H Calcium Phosphorus Magnesium Iron TIBC Ferritin Total Bilirubin AST ALT Alkaline Phosphatase Total Creatine Kinase Troponin T C-Reactive Protein Total Protein Albumin Triglycerides HDL Cholesterol Miscellaneous Test Crossmatch 08/24/17 08/24/17 08/25/17 18:04 23:05 05:05 WBC RBC Hgb Hct MCV MCH RDW Plt Count Lymph % (Auto) [place] % (Auto) [place] # Seg Neutrophils % Seg Neuts % (Manual) Lymphocytes % (Manual) Monocytes % (Manual) Nucleated RBC % Seg Neutrophils # Seg Neutrophils # Man Lymphocytes # (Manual) Monocytes # (Manual) Eosinophils # (Manual) Basophils # (Manual) PT INR POC ABG pH ABG pH POC ABG pCO2 POC ABG pO2 ABG pO2 ABG O2 Saturation ABG Base Excess ABG Hemoglobin Oxyhemoglobin Sodium Potassium Chloride Carbon Dioxide BUN Creatinine Glucose POC Glucose 189 H 175 H 190 H Calcium Phosphorus Magnesium Iron TIBC Ferritin Total Bilirubin AST ALT Alkaline Phosphatase Total Creatine Kinase Troponin T C-Reactive Protein Total Protein Albumin Triglycerides HDL Cholesterol Miscellaneous Test Crossmatch 08/25/17 08/25/17 08/26/17 07:02 11:53 05:30 WBC 33.5 H RBC 2.47 L Hgb 7.3 L Hct 23.0 L MCV MCH RDW 21.3 H Plt Count Lymph % (Auto) [place] % (Auto) [place] # Seg Neutrophils % Seg Neuts % (Manual) 92.0 H Lymphocytes % (Manual) 1.0 L Monocytes % (Manual) Nucleated RBC % Seg Neutrophils # Seg Neutrophils # Man 30.8 H Lymphocytes # (Manual) 0.3 L Monocytes # (Manual) Eosinophils # (Manual) Basophils # (Manual) PT INR POC ABG pH ABG pH POC ABG pCO2 POC ABG pO2 ABG pO2 ABG O2 Saturation ABG Base Excess ABG Hemoglobin Oxyhemoglobin Sodium Potassium Chloride Carbon Dioxide BUN 32 H Creatinine 5.0 H D Glucose 117 H POC Glucose 191 H Calcium 8.0 L Phosphorus Magnesium Iron TIBC Ferritin Total Bilirubin AST ALT Alkaline Phosphatase Total Creatine Kinase Troponin T C-Reactive Protein Total Protein Albumin Triglycerides HDL Cholesterol Miscellaneous Test Crossmatch 08/26/17 08/26/17 08/26/17 05:30 06:44 13:26 WBC RBC Hgb Hct MCV MCH RDW Plt Count Lymph % (Auto) [place] % (Auto) [place] # Seg Neutrophils % Seg Neuts % (Manual) Lymphocytes % (Manual) Monocytes % (Manual) Nucleated RBC % Seg Neutrophils # Seg Neutrophils # Man Lymphocytes # (Manual) Monocytes # (Manual) Eosinophils # (Manual) Basophils # (Manual) PT INR POC ABG pH ABG pH POC ABG pCO2 POC ABG pO2 ABG pO2 ABG O2 Saturation ABG Base Excess ABG Hemoglobin Oxyhemoglobin Sodium Potassium 5.2 H Chloride Carbon Dioxide BUN 80 H Creatinine 3.4 H Glucose 193 H POC Glucose 232 H 207 H Calcium 8.3 L Phosphorus 6.80 H D Magnesium 2.60 H Iron TIBC Ferritin Total Bilirubin AST 135 H ALT Alkaline Phosphatase 211 H Total Creatine Kinase Troponin T C-Reactive Protein Total Protein 4.8 L Albumin 2.0 L Triglycerides HDL Cholesterol Miscellaneous Test Crossmatch 08/27/17 08/27/17 08/27/17 01:08 06:20 06:20 WBC 35.0 H RBC 2.75 L Hgb 8.4 L Hct 25.1 L MCV MCH RDW 21.8 H Plt Count Lymph % (Auto) [place] % (Auto) [place] # Seg Neutrophils % Seg Neuts % (Manual) Lymphocytes % (Manual) 4.5 L Monocytes % (Manual) Nucleated RBC % Seg Neutrophils # Seg Neutrophils # Man 31.9 H Lymphocytes # (Manual) Monocytes # (Manual) 1.2 H Eosinophils # (Manual) Basophils # (Manual) PT INR POC ABG pH ABG pH POC ABG pCO2 POC ABG pO2 ABG pO2 ABG O2 Saturation ABG Base Excess ABG Hemoglobin Oxyhemoglobin Sodium Potassium Chloride Carbon Dioxide BUN 61 H Creatinine 2.6 H Glucose 184 H POC Glucose 146 H Calcium Phosphorus 4.90 H D Magnesium Iron TIBC Ferritin Total Bilirubin AST ALT Alkaline Phosphatase Total Creatine Kinase Troponin T C-Reactive Protein Total Protein Albumin Triglycerides HDL Cholesterol Miscellaneous Test Crossmatch 08/27/17 08/27/17 08/27/17 07:01 09:17 12:52 WBC RBC Hgb Hct MCV MCH RDW Plt Count Lymph % (Auto) [place] % (Auto) [place] # Seg Neutrophils % Seg Neuts % (Manual) Lymphocytes % (Manual) Monocytes % (Manual) Nucleated RBC % Seg Neutrophils # Seg Neutrophils # Man Lymphocytes # (Manual) Monocytes # (Manual) Eosinophils # (Manual) Basophils # (Manual) PT INR POC ABG pH ABG pH POC ABG pCO2 POC ABG pO2 ABG pO2 ABG O2 Saturation ABG Base Excess ABG Hemoglobin Oxyhemoglobin Sodium Potassium Chloride Carbon Dioxide BUN Creatinine Glucose POC Glucose 165 H 198 H 218 H Calcium Phosphorus Magnesium Iron TIBC Ferritin Total Bilirubin AST ALT Alkaline Phosphatase Total Creatine Kinase Troponin T C-Reactive Protein Total Protein Albumin Triglycerides HDL Cholesterol Miscellaneous Test Crossmatch 08/27/17 08/28/17 08/28/17 17:27 02:13 06:46 WBC RBC Hgb Hct MCV MCH RDW Plt Count Lymph % (Auto) [place] % (Auto) [place] # Seg Neutrophils % Seg Neuts % (Manual) Lymphocytes % (Manual) Monocytes % (Manual) Nucleated RBC % Seg Neutrophils # Seg Neutrophils # Man Lymphocytes # (Manual) Monocytes # (Manual) Eosinophils # (Manual) Basophils # (Manual) PT INR POC ABG pH ABG pH POC ABG pCO2 POC ABG pO2 ABG pO2 ABG O2 Saturation ABG Base Excess ABG Hemoglobin Oxyhemoglobin Sodium Potassium Chloride Carbon Dioxide BUN Creatinine Glucose POC Glucose 151 H 155 H 230 H Calcium Phosphorus Magnesium Iron TIBC Ferritin Total Bilirubin AST ALT Alkaline Phosphatase Total Creatine Kinase Troponin T C-Reactive Protein Total Protein Albumin Triglycerides HDL Cholesterol Miscellaneous Test Crossmatch 08/28/17 08/28/17 08/28/17 06:53 06:53 08:19 WBC 31.1 H RBC 2.26 L Hgb 6.8 L Hct 20.9 L MCV MCH RDW 21.7 H Plt Count Lymph % (Auto) [place] % (Auto) [place] # Seg Neutrophils % Seg Neuts % (Manual) 83.0 H Lymphocytes % (Manual) 4.0 L Monocytes % (Manual) Nucleated RBC % Seg Neutrophils # Seg Neutrophils # Man 25.8 H Lymphocytes # (Manual) Monocytes # (Manual) Eosinophils # (Manual) Basophils # (Manual) PT INR POC ABG pH ABG pH POC ABG pCO2 POC ABG pO2 ABG pO2 ABG O2 Saturation ABG Base Excess ABG Hemoglobin Oxyhemoglobin Sodium Potassium Chloride Carbon Dioxide BUN 81 H Creatinine 3.4 H Glucose 218 H POC Glucose 239 H Calcium Phosphorus 4.90 H Magnesium Iron TIBC Ferritin Total Bilirubin AST ALT Alkaline Phosphatase Total Creatine Kinase Troponin T C-Reactive Protein Total Protein Albumin Triglycerides HDL Cholesterol Miscellaneous Test Crossmatch 08/28/17 08/28/17 08/28/17 11:56 13:05 13:29 WBC RBC Hgb Hct MCV MCH RDW Plt Count Lymph % (Auto) [place] % (Auto) [place] # Seg Neutrophils % Seg Neuts % (Manual) Lymphocytes % (Manual) Monocytes % (Manual) Nucleated RBC % Seg Neutrophils # Seg Neutrophils # Man Lymphocytes # (Manual) Monocytes # (Manual) Eosinophils # (Manual) Basophils # (Manual) PT 16.7 H INR 1.29 H POC ABG pH ABG pH POC ABG pCO2 POC ABG pO2 338 H ABG pO2 ABG O2 Saturation ABG Base Excess ABG Hemoglobin Oxyhemoglobin Sodium Potassium Chloride Carbon Dioxide BUN Creatinine Glucose POC Glucose Calcium Phosphorus Magnesium Iron TIBC Ferritin Total Bilirubin AST ALT Alkaline Phosphatase Total Creatine Kinase Troponin T C-Reactive Protein Total Protein Albumin Triglycerides HDL Cholesterol Miscellaneous Test Crossmatch See Detail 08/28/17 08/28/17 08/29/17 16:22 19:20 04:24 WBC RBC Hgb Hct MCV MCH RDW Plt Count Lymph % (Auto) [place] % (Auto) [place] # Seg Neutrophils % Seg Neuts % (Manual) Lymphocytes % (Manual) Monocytes % (Manual) Nucleated RBC % Seg Neutrophils # Seg Neutrophils # Man Lymphocytes # (Manual) Monocytes # (Manual) Eosinophils # (Manual) Basophils # (Manual) PT INR POC ABG pH 7.469 H ABG pH POC ABG pCO2 POC ABG pO2 240 H ABG pO2 ABG O2 Saturation ABG Base Excess ABG Hemoglobin Oxyhemoglobin Sodium Potassium Chloride Carbon Dioxide BUN Creatinine Glucose POC Glucose 209 H 195 H Calcium Phosphorus Magnesium Iron TIBC Ferritin Total Bilirubin AST ALT Alkaline Phosphatase Total Creatine Kinase Troponin T C-Reactive Protein Total Protein Albumin Triglycerides HDL Cholesterol Miscellaneous Test Crossmatch 08/29/17 08/29/17 08/29/17 04:30 04:30 12:07 WBC 44.9 H* RBC Hgb Hct MCV MCH RDW 23.1 H Plt Count Lymph % (Auto) [place] % (Auto) [place] # Seg Neutrophils % Seg Neuts % (Manual) 38.0 L Lymphocytes % (Manual) 10.0 L Monocytes % (Manual) 10.0 H Nucleated RBC % 6.0 H Seg Neutrophils # Seg Neutrophils # Man 17.1 H Lymphocytes # (Manual) Monocytes # (Manual) 4.5 H Eosinophils # (Manual) Basophils # (Manual) PT INR POC ABG pH ABG pH POC ABG pCO2 POC ABG pO2 ABG pO2 ABG O2 Saturation ABG Base Excess ABG Hemoglobin Oxyhemoglobin Sodium Potassium Chloride Carbon Dioxide BUN 61 H Creatinine 2.4 H Glucose 226 H POC Glucose 200 H Calcium Phosphorus Magnesium Iron TIBC Ferritin Total Bilirubin AST ALT Alkaline Phosphatase Total Creatine Kinase Troponin T C-Reactive Protein Total Protein Albumin Triglycerides HDL Cholesterol Miscellaneous Test Crossmatch 08/29/17 08/29/17 08/29/17 12:30 12:30 17:23 WBC RBC Hgb Hct MCV MCH RDW Plt Count Lymph % (Auto) [place] % (Auto) [place] # Seg Neutrophils % Seg Neuts % (Manual) Lymphocytes % (Manual) Monocytes % (Manual) Nucleated RBC % Seg Neutrophils # Seg Neutrophils # Man Lymphocytes # (Manual) Monocytes # (Manual) Eosinophils # (Manual) Basophils # (Manual) PT INR POC ABG pH ABG pH POC ABG pCO2 POC ABG pO2 ABG pO2 ABG O2 Saturation ABG Base Excess ABG Hemoglobin Oxyhemoglobin Sodium Potassium Chloride Carbon Dioxide BUN Creatinine Glucose POC Glucose 270 H Calcium Phosphorus Magnesium Iron TIBC Ferritin Total Bilirubin AST ALT Alkaline Phosphatase Total Creatine Kinase Troponin T C-Reactive Protein 19.10 H Total Protein Albumin Triglycerides HDL Cholesterol Miscellaneous Test Flexitest 1 H Crossmatch 08/30/17 08/30/17 08/30/17 00:10 01:30 03:31 WBC RBC Hgb Hct MCV MCH RDW Plt Count Lymph % (Auto) [place] % (Auto) [place] # Seg Neutrophils % Seg Neuts % (Manual) Lymphocytes % (Manual) Monocytes % (Manual) Nucleated RBC % Seg Neutrophils # Seg Neutrophils # Man Lymphocytes # (Manual) Monocytes # (Manual) Eosinophils # (Manual) Basophils # (Manual) PT INR POC ABG pH 7.168 L 7.335 L ABG pH POC ABG pCO2 72.8 H POC ABG pO2 257 H 117 H ABG pO2 ABG O2 Saturation ABG Base Excess ABG Hemoglobin Oxyhemoglobin Sodium Potassium Chloride Carbon Dioxide BUN Creatinine Glucose POC Glucose 245 H Calcium Phosphorus Magnesium Iron TIBC Ferritin Total Bilirubin AST ALT Alkaline Phosphatase Total Creatine Kinase Troponin T C-Reactive Protein Total Protein Albumin Triglycerides HDL Cholesterol Miscellaneous Test Crossmatch 08/30/17 08/30/17 08/30/17 05:20 05:20 05:20 WBC 40.9 H* RBC 3.64 L Hgb Hct MCV MCH RDW 24.3 H Plt Count Lymph % (Auto) [place] % (Auto) [place] # Seg Neutrophils % Seg Neuts % (Manual) 80.0 H Lymphocytes % (Manual) 3.0 L Monocytes % (Manual) Nucleated RBC % 1.0 H Seg Neutrophils # Seg Neutrophils # Man 32.7 H Lymphocytes # (Manual) Monocytes # (Manual) Eosinophils # (Manual) Basophils # (Manual) PT INR POC ABG pH ABG pH POC ABG pCO2 POC ABG pO2 ABG pO2 ABG O2 Saturation ABG Base Excess ABG Hemoglobin Oxyhemoglobin Sodium Potassium Chloride Carbon Dioxide BUN 83 H Creatinine 2.9 H Glucose 334 H POC Glucose 309 H Calcium Phosphorus Magnesium Iron TIBC Ferritin Total Bilirubin AST ALT Alkaline Phosphatase Total Creatine Kinase Troponin T C-Reactive Protein Total Protein Albumin Triglycerides HDL Cholesterol Miscellaneous Test Crossmatch 08/30/17 08/30/17 08/31/17 12:18 17:36 00:17 WBC RBC Hgb Hct MCV MCH RDW Plt Count Lymph % (Auto) [place] % (Auto) [place] # Seg Neutrophils % Seg Neuts % (Manual) Lymphocytes % (Manual) Monocytes % (Manual) Nucleated RBC % Seg Neutrophils # Seg Neutrophils # Man Lymphocytes # (Manual) Monocytes # (Manual) Eosinophils # (Manual) Basophils # (Manual) PT INR POC ABG pH ABG pH POC ABG pCO2 POC ABG pO2 ABG pO2 ABG O2 Saturation ABG Base Excess ABG Hemoglobin Oxyhemoglobin Sodium Potassium Chloride Carbon Dioxide BUN Creatinine Glucose POC Glucose 273 H 293 H 360 H Calcium Phosphorus Magnesium Iron TIBC Ferritin Total Bilirubin AST ALT Alkaline Phosphatase Total Creatine Kinase Troponin T C-Reactive Protein Total Protein Albumin Triglycerides HDL Cholesterol Miscellaneous Test Crossmatch 08/31/17 08/31/17 08/31/17 05:30 05:30 05:32 WBC 29.9 H RBC 2.89 L Hgb 8.2 L Hct 24.7 L D MCV MCH RDW 24.4 H Plt Count Lymph % (Auto) [place] % (Auto) [place] # Seg Neutrophils % Seg Neuts % (Manual) Lymphocytes % (Manual) 2.0 L Monocytes % (Manual) Nucleated RBC % 2.0 H Seg Neutrophils # Seg Neutrophils # Man 18.5 H Lymphocytes # (Manual) 0.6 L Monocytes # (Manual) 0.9 H Eosinophils # (Manual) Basophils # (Manual) PT INR POC ABG pH ABG pH POC ABG pCO2 POC ABG pO2 ABG pO2 ABG O2 Saturation ABG Base Excess ABG Hemoglobin Oxyhemoglobin Sodium Potassium Chloride Carbon Dioxide BUN 62 H Creatinine 2.2 H Glucose 245 H POC Glucose 257 H Calcium Phosphorus 2.10 L D Magnesium 1.60 L Iron TIBC Ferritin Total Bilirubin AST ALT Alkaline Phosphatase Total Creatine Kinase Troponin T C-Reactive Protein Total Protein Albumin Triglycerides HDL Cholesterol Miscellaneous Test Crossmatch 08/31/17 08/31/17 08/31/17 11:56 12:05 18:14 WBC 32.5 H RBC 3.19 L Hgb 8.8 L Hct 27.9 L MCV MCH RDW 24.9 H Plt Count Lymph % (Auto) [place] % (Auto) [place] # Seg Neutrophils % Seg Neuts % (Manual) Lymphocytes % (Manual) 1.0 L Monocytes % (Manual) 12.0 H Nucleated RBC % 1.0 H Seg Neutrophils # Seg Neutrophils # Man 13.3 H Lymphocytes # (Manual) 0.3 L Monocytes # (Manual) 3.9 H Eosinophils # (Manual) Basophils # (Manual) PT INR POC ABG pH ABG pH POC ABG pCO2 POC ABG pO2 ABG pO2 ABG O2 Saturation ABG Base Excess ABG Hemoglobin Oxyhemoglobin Sodium Potassium Chloride Carbon Dioxide BUN Creatinine Glucose POC Glucose 245 H Calcium Phosphorus Magnesium Iron TIBC Ferritin Total Bilirubin AST ALT Alkaline Phosphatase Total Creatine Kinase Troponin T C-Reactive Protein Total Protein Albumin Triglycerides HDL Cholesterol Miscellaneous Test Crossmatch See Detail 08/31/17 08/31/17 08/31/17 18:14 18:15 18:22 WBC RBC Hgb Hct MCV MCH RDW Plt Count Lymph % (Auto) [place] % (Auto) [place] # Seg Neutrophils % Seg Neuts % (Manual) Lymphocytes % (Manual) Monocytes % (Manual) Nucleated RBC % Seg Neutrophils # Seg Neutrophils # Man Lymphocytes # (Manual) Monocytes # (Manual) Eosinophils # (Manual) Basophils # (Manual) PT 15.1 H INR POC ABG pH ABG pH POC ABG pCO2 POC ABG pO2 ABG pO2 ABG O2 Saturation ABG Base Excess ABG Hemoglobin Oxyhemoglobin Sodium 136 L Potassium Chloride Carbon Dioxide 21 L BUN 69 H Creatinine 2.3 H Glucose 227 H POC Glucose 240 H Calcium Phosphorus 2.40 L Magnesium 1.50 L Iron TIBC Ferritin Total Bilirubin AST 143 H ALT 114 H Alkaline Phosphatase 267 H Total Creatine Kinase Troponin T C-Reactive Protein Total Protein 4.1 L Albumin 1.8 L Triglycerides HDL Cholesterol Miscellaneous Test Crossmatch 08/31/17 09/01/17 09/01/17 23:53 05:00 05:00 WBC 33.9 H RBC 2.85 L Hgb 7.8 L Hct 24.8 L MCV MCH 27 L RDW 23.9 H Plt Count Lymph % (Auto) [place] % (Auto) [place] # Seg Neutrophils % Seg Neuts % (Manual) Lymphocytes % (Manual) 5.0 L Monocytes % (Manual) Nucleated RBC % Seg Neutrophils # Seg Neutrophils # Man 23.1 H Lymphocytes # (Manual) Monocytes # (Manual) Eosinophils # (Manual) Basophils # (Manual) PT INR POC ABG pH ABG pH POC ABG pCO2 POC ABG pO2 ABG pO2 ABG O2 Saturation ABG Base Excess ABG Hemoglobin Oxyhemoglobin Sodium Potassium Chloride Carbon Dioxide BUN 51 H Creatinine 1.8 H Glucose 195 H POC Glucose 301 H Calcium Phosphorus 1.70 L D Magnesium 1.60 L Iron TIBC Ferritin Total Bilirubin AST 80 H ALT 82 H Alkaline Phosphatase 243 H Total Creatine Kinase Troponin T C-Reactive Protein Total Protein 4.2 L Albumin 1.7 L Triglycerides HDL Cholesterol Miscellaneous Test Crossmatch 09/01/17 09/01/17 09/01/17 05:20 05:47 11:37 WBC RBC Hgb Hct MCV MCH RDW Plt Count Lymph % (Auto) [place] % (Auto) [place] # Seg Neutrophils % Seg Neuts % (Manual) Lymphocytes % (Manual) Monocytes % (Manual) Nucleated RBC % Seg Neutrophils # Seg Neutrophils # Man Lymphocytes # (Manual) Monocytes # (Manual) Eosinophils # (Manual) Basophils # (Manual) PT INR POC ABG pH ABG pH 7.348 L POC ABG pCO2 POC ABG pO2 ABG pO2 70.2 L ABG O2 Saturation ABG Base Excess ABG Hemoglobin 7.5 L Oxyhemoglobin Sodium Potassium Chloride Carbon Dioxide BUN Creatinine Glucose POC Glucose 230 H 254 H Calcium Phosphorus Magnesium Iron TIBC Ferritin Total Bilirubin AST ALT Alkaline Phosphatase Total Creatine Kinase Troponin T C-Reactive Protein Total Protein Albumin Triglycerides HDL Cholesterol Miscellaneous Test Crossmatch 09/01/17 09/01/17 09/02/17 17:39 23:14 04:55 WBC RBC Hgb Hct MCV MCH RDW Plt Count Lymph % (Auto) [place] % (Auto) [place] # Seg Neutrophils % Seg Neuts % (Manual) Lymphocytes % (Manual) Monocytes % (Manual) Nucleated RBC % Seg Neutrophils # Seg Neutrophils # Man Lymphocytes # (Manual) Monocytes # (Manual) Eosinophils # (Manual) Basophils # (Manual) PT INR POC ABG pH ABG pH POC ABG pCO2 POC ABG pO2 ABG pO2 124.8 H ABG O2 Saturation ABG Base Excess -2.9 L ABG Hemoglobin 5.8 L Oxyhemoglobin Sodium Potassium Chloride Carbon Dioxide BUN Creatinine Glucose POC Glucose 297 H 291 H Calcium Phosphorus Magnesium Iron TIBC Ferritin Total Bilirubin AST ALT Alkaline Phosphatase Total Creatine Kinase Troponin T C-Reactive Protein Total Protein Albumin Triglycerides HDL Cholesterol Miscellaneous Test Crossmatch 09/02/17 09/02/17 09/02/17 05:31 06:10 11:58 WBC RBC Hgb Hct MCV MCH RDW Plt Count Lymph % (Auto) [place] % (Auto) [place] # Seg Neutrophils % Seg Neuts % (Manual) Lymphocytes % (Manual) Monocytes % (Manual) Nucleated RBC % Seg Neutrophils # Seg Neutrophils # Man Lymphocytes # (Manual) Monocytes # (Manual) Eosinophils # (Manual) Basophils # (Manual) PT INR POC ABG pH ABG pH POC ABG pCO2 POC ABG pO2 ABG pO2 ABG O2 Saturation ABG Base Excess ABG Hemoglobin Oxyhemoglobin Sodium Potassium Chloride Carbon Dioxide BUN 68 H Creatinine 2.2 H Glucose 369 H POC Glucose 245 H 333 H Calcium 8.2 L Phosphorus Magnesium Iron TIBC Ferritin Total Bilirubin AST ALT Alkaline Phosphatase Total Creatine Kinase Troponin T C-Reactive Protein Total Protein Albumin Triglycerides HDL Cholesterol Miscellaneous Test Crossmatch 09/02/17 09/02/17 09/03/17 15:37 23:50 04:00 WBC RBC Hgb Hct MCV MCH RDW Plt Count Lymph % (Auto) [place] % (Auto) [place] # Seg Neutrophils % Seg Neuts % (Manual) Lymphocytes % (Manual) Monocytes % (Manual) Nucleated RBC % Seg Neutrophils # Seg Neutrophils # Man Lymphocytes # (Manual) Monocytes # (Manual) Eosinophils # (Manual) Basophils # (Manual) PT INR POC ABG pH ABG pH POC ABG pCO2 POC ABG pO2 ABG pO2 ABG O2 Saturation ABG Base Excess ABG Hemoglobin Oxyhemoglobin Sodium Potassium Chloride Carbon Dioxide BUN 59 H Creatinine 1.9 H Glucose 231 H POC Glucose 314 H 240 H Calcium 8.0 L Phosphorus Magnesium Iron TIBC Ferritin Total Bilirubin AST ALT Alkaline Phosphatase 265 H Total Creatine Kinase Troponin T C-Reactive Protein Total Protein 4.4 L Albumin 1.7 L Triglycerides 180 H HDL Cholesterol Miscellaneous Test Crossmatch 09/03/17 09/03/17 09/03/17 05:00 05:32 11:52 WBC 41.5 H* RBC 2.46 L Hgb 6.9 L Hct 21.3 L MCV MCH RDW 24.9 H Plt Count Lymph % (Auto) [place] % (Auto) [place] # Seg Neutrophils % Seg Neuts % (Manual) Lymphocytes % (Manual) 3.0 L Monocytes % (Manual) 9.5 H Nucleated RBC % 1.5 H Seg Neutrophils # Seg Neutrophils # Man 28.8 H Lymphocytes # (Manual) Monocytes # (Manual) 3.9 H Eosinophils # (Manual) Basophils # (Manual) PT INR POC ABG pH ABG pH POC ABG pCO2 POC ABG pO2 ABG pO2 ABG O2 Saturation ABG Base Excess ABG Hemoglobin Oxyhemoglobin Sodium Potassium Chloride Carbon Dioxide BUN Creatinine Glucose POC Glucose 188 H 285 H Calcium Phosphorus Magnesium Iron TIBC Ferritin Total Bilirubin AST ALT Alkaline Phosphatase Total Creatine Kinase Troponin T C-Reactive Protein Total Protein Albumin Triglycerides HDL Cholesterol Miscellaneous Test Crossmatch 09/03/17 09/03/17 09/03/17 16:55 17:44 23:56 WBC RBC Hgb Hct MCV MCH RDW Plt Count Lymph % (Auto) [place] % (Auto) [place] # Seg Neutrophils % Seg Neuts % (Manual) Lymphocytes % (Manual) Monocytes % (Manual) Nucleated RBC % Seg Neutrophils # Seg Neutrophils # Man Lymphocytes # (Manual) Monocytes # (Manual) Eosinophils # (Manual) Basophils # (Manual) PT INR POC ABG pH ABG pH POC ABG pCO2 POC ABG pO2 ABG pO2 ABG O2 Saturation ABG Base Excess ABG Hemoglobin Oxyhemoglobin Sodium Potassium Chloride Carbon Dioxide BUN Creatinine Glucose POC Glucose 217 H 193 H Calcium Phosphorus Magnesium Iron TIBC Ferritin Total Bilirubin AST ALT Alkaline Phosphatase Total Creatine Kinase Troponin T C-Reactive Protein Total Protein Albumin Triglycerides HDL Cholesterol Miscellaneous Test Crossmatch See Detail 09/03/17 09/04/17 09/04/17 Unknown 03:47 04:32 WBC 44.7 H* RBC 3.12 L Hgb 8.7 L Hct 26.7 L MCV MCH RDW 23.5 H Plt Count Lymph % (Auto) [place] % (Auto) [place] # Seg Neutrophils % Seg Neuts % (Manual) Lymphocytes % (Manual) 4.0 L Monocytes % (Manual) Nucleated RBC % 2.0 H Seg Neutrophils # Seg Neutrophils # Man 30.8 H Lymphocytes # (Manual) Monocytes # (Manual) 2.2 H Eosinophils # (Manual) Basophils # (Manual) PT INR POC ABG pH ABG pH POC ABG pCO2 POC ABG pO2 ABG pO2 133.4 H 135.0 H ABG O2 Saturation ABG Base Excess -2.5 L ABG Hemoglobin 5.8 L 7.9 L Oxyhemoglobin Sodium Potassium Chloride Carbon Dioxide BUN Creatinine Glucose POC Glucose Calcium Phosphorus Magnesium Iron TIBC Ferritin Total Bilirubin AST ALT Alkaline Phosphatase Total Creatine Kinase Troponin T C-Reactive Protein Total Protein Albumin Triglycerides HDL Cholesterol Miscellaneous Test Crossmatch 09/04/17 09/04/17 09/04/17 04:32 05:48 10:43 WBC RBC Hgb Hct MCV MCH RDW Plt Count Lymph % (Auto) [place] % (Auto) [place] # Seg Neutrophils % Seg Neuts % (Manual) Lymphocytes % (Manual) Monocytes % (Manual) Nucleated RBC % Seg Neutrophils # Seg Neutrophils # Man Lymphocytes # (Manual) Monocytes # (Manual) Eosinophils # (Manual) Basophils # (Manual) PT INR POC ABG pH ABG pH POC ABG pCO2 POC ABG pO2 ABG pO2 ABG O2 Saturation ABG Base Excess ABG Hemoglobin Oxyhemoglobin Sodium 136 L Potassium 5.2 H D Chloride 94.2 L Carbon Dioxide BUN 71 H Creatinine 2.3 H Glucose 235 H POC Glucose 329 H Calcium 8.3 L Phosphorus Magnesium Iron TIBC Ferritin Total Bilirubin AST ALT Alkaline Phosphatase Total Creatine Kinase Troponin T C-Reactive Protein Total Protein Albumin Triglycerides HDL Cholesterol Miscellaneous Test Flexitest 1 H Crossmatch 09/04/17 09/04/17 09/05/17 12:38 17:30 00:15 WBC RBC Hgb Hct MCV MCH RDW Plt Count Lymph % (Auto) [place] % (Auto) [place] # Seg Neutrophils % Seg Neuts % (Manual) Lymphocytes % (Manual) Monocytes % (Manual) Nucleated RBC % Seg Neutrophils # Seg Neutrophils # Man Lymphocytes # (Manual) Monocytes # (Manual) Eosinophils # (Manual) Basophils # (Manual) PT INR POC ABG pH ABG pH POC ABG pCO2 POC ABG pO2 ABG pO2 ABG O2 Saturation ABG Base Excess ABG Hemoglobin Oxyhemoglobin Sodium Potassium Chloride Carbon Dioxide BUN Creatinine Glucose POC Glucose 444 H 331 H 362 H Calcium Phosphorus Magnesium Iron TIBC Ferritin Total Bilirubin AST ALT Alkaline Phosphatase Total Creatine Kinase Troponin T C-Reactive Protein Total Protein Albumin Triglycerides HDL Cholesterol Miscellaneous Test Crossmatch 09/05/17 09/05/17 09/05/17 03:55 03:55 12:12 WBC 35.3 H RBC 2.87 L Hgb 8.1 L Hct 24.6 L MCV MCH RDW 23.3 H Plt Count Lymph % (Auto) [place] % (Auto) [place] # Seg Neutrophils % Seg Neuts % (Manual) 89.5 H Lymphocytes % (Manual) 3.0 L Monocytes % (Manual) Nucleated RBC % 2.5 H Seg Neutrophils # Seg Neutrophils # Man 31.6 H Lymphocytes # (Manual) 1.1 L Monocytes # (Manual) Eosinophils # (Manual) Basophils # (Manual) PT INR POC ABG pH ABG pH POC ABG pCO2 POC ABG pO2 ABG pO2 ABG O2 Saturation ABG Base Excess ABG Hemoglobin Oxyhemoglobin Sodium 136 L Potassium Chloride 94.7 L Carbon Dioxide BUN 55 H Creatinine 1.8 H Glucose 193 H POC Glucose 344 H Calcium 8.1 L Phosphorus Magnesium Iron TIBC Ferritin Total Bilirubin AST ALT Alkaline Phosphatase Total Creatine Kinase Troponin T C-Reactive Protein Total Protein Albumin Triglycerides HDL Cholesterol Miscellaneous Test Crossmatch 09/05/17 09/05/17 09/05/17 14:32 15:32 16:41 WBC RBC Hgb Hct MCV MCH RDW Plt Count Lymph % (Auto) [place] % (Auto) [place] # Seg Neutrophils % Seg Neuts % (Manual) Lymphocytes % (Manual) Monocytes % (Manual) Nucleated RBC % Seg Neutrophils # Seg Neutrophils # Man Lymphocytes # (Manual) Monocytes # (Manual) Eosinophils # (Manual) Basophils # (Manual) PT INR POC ABG pH ABG pH POC ABG pCO2 POC ABG pO2 ABG pO2 ABG O2 Saturation ABG Base Excess ABG Hemoglobin Oxyhemoglobin Sodium Potassium Chloride Carbon Dioxide BUN Creatinine Glucose POC Glucose 265 H 145 H 188 H Calcium Phosphorus Magnesium Iron TIBC Ferritin Total Bilirubin AST ALT Alkaline Phosphatase Total Creatine Kinase Troponin T C-Reactive Protein Total Protein Albumin Triglycerides HDL Cholesterol Miscellaneous Test Crossmatch 09/05/17 09/05/17 09/05/17 17:28 18:38 20:10 WBC RBC Hgb Hct MCV MCH RDW Plt Count Lymph % (Auto) [place] % (Auto) [place] # Seg Neutrophils % Seg Neuts % (Manual) Lymphocytes % (Manual) Monocytes % (Manual) Nucleated RBC % Seg Neutrophils # Seg Neutrophils # Man Lymphocytes # (Manual) Monocytes # (Manual) Eosinophils # (Manual) Basophils # (Manual) PT INR POC ABG pH ABG pH POC ABG pCO2 POC ABG pO2 ABG pO2 ABG O2 Saturation ABG Base Excess ABG Hemoglobin Oxyhemoglobin Sodium Potassium Chloride Carbon Dioxide BUN Creatinine Glucose POC Glucose 246 H 271 H 165 H Calcium Phosphorus Magnesium Iron TIBC Ferritin Total Bilirubin AST ALT Alkaline Phosphatase Total Creatine Kinase Troponin T C-Reactive Protein Total Protein Albumin Triglycerides HDL Cholesterol Miscellaneous Test Crossmatch 09/05/17 09/05/17 09/06/17 21:06 23:07 00:10 WBC RBC Hgb Hct MCV MCH RDW Plt Count Lymph % (Auto) [place] % (Auto) [place] # Seg Neutrophils % Seg Neuts % (Manual) Lymphocytes % (Manual) Monocytes % (Manual) Nucleated RBC % Seg Neutrophils # Seg Neutrophils # Man Lymphocytes # (Manual) Monocytes # (Manual) Eosinophils # (Manual) Basophils # (Manual) PT INR POC ABG pH ABG pH POC ABG pCO2 POC ABG pO2 ABG pO2 ABG O2 Saturation ABG Base Excess ABG Hemoglobin Oxyhemoglobin Sodium Potassium Chloride Carbon Dioxide BUN Creatinine Glucose POC Glucose 134 H 135 H 147 H Calcium Phosphorus Magnesium Iron TIBC Ferritin Total Bilirubin AST ALT Alkaline Phosphatase Total Creatine Kinase Troponin T C-Reactive Protein Total Protein Albumin Triglycerides HDL Cholesterol Miscellaneous Test Crossmatch 09/06/17 09/06/17 09/06/17 01:08 02:01 03:08 WBC RBC Hgb Hct MCV MCH RDW Plt Count Lymph % (Auto) [place] % (Auto) [place] # Seg Neutrophils % Seg Neuts % (Manual) Lymphocytes % (Manual) Monocytes % (Manual) Nucleated RBC % Seg Neutrophils # Seg Neutrophils # Man Lymphocytes # (Manual) Monocytes # (Manual) Eosinophils # (Manual) Basophils # (Manual) PT INR POC ABG pH ABG pH POC ABG pCO2 POC ABG pO2 ABG pO2 ABG O2 Saturation ABG Base Excess ABG Hemoglobin Oxyhemoglobin Sodium Potassium Chloride Carbon Dioxide BUN Creatinine Glucose POC Glucose 133 H 146 H 135 H Calcium Phosphorus Magnesium Iron TIBC Ferritin Total Bilirubin AST ALT Alkaline Phosphatase Total Creatine Kinase Troponin T C-Reactive Protein Total Protein Albumin Triglycerides HDL Cholesterol Miscellaneous Test Crossmatch 09/06/17 09/06/17 09/06/17 05:30 05:30 05:30 WBC 38.6 H RBC 2.95 L Hgb 8.3 L Hct 25.3 L MCV MCH RDW 22.2 H Plt Count Lymph % (Auto) [place] % (Auto) [place] # Seg Neutrophils % Seg Neuts % (Manual) Lymphocytes % (Manual) 2.0 L Monocytes % (Manual) Nucleated RBC % 5.0 H Seg Neutrophils # Seg Neutrophils # Man 25.9 H Lymphocytes # (Manual) 0.8 L Monocytes # (Manual) 1.9 H Eosinophils # (Manual) Basophils # (Manual) PT INR POC ABG pH ABG pH POC ABG pCO2 POC ABG pO2 ABG pO2 ABG O2 Saturation ABG Base Excess ABG Hemoglobin Oxyhemoglobin Sodium 135 L Potassium Chloride 93.5 L Carbon Dioxide BUN 82 H Creatinine 2.3 H Glucose 148 H POC Glucose Calcium Phosphorus Magnesium Iron TIBC Ferritin Total Bilirubin AST ALT Alkaline Phosphatase Total Creatine Kinase Troponin T C-Reactive Protein 2.80 H Total Protein Albumin Triglycerides HDL Cholesterol Miscellaneous Test Crossmatch 09/06/17 09/06/17 09/06/17 05:48 08:04 09:06 WBC RBC Hgb Hct MCV MCH RDW Plt Count Lymph % (Auto) [place] % (Auto) [place] # Seg Neutrophils % Seg Neuts % (Manual) Lymphocytes % (Manual) Monocytes % (Manual) Nucleated RBC % Seg Neutrophils # Seg Neutrophils # Man Lymphocytes # (Manual) Monocytes # (Manual) Eosinophils # (Manual) Basophils # (Manual) PT INR POC ABG pH ABG pH POC ABG pCO2 POC ABG pO2 ABG pO2 ABG O2 Saturation ABG Base Excess ABG Hemoglobin Oxyhemoglobin Sodium Potassium Chloride Carbon Dioxide BUN Creatinine Glucose POC Glucose 152 H 164 H 172 H Calcium Phosphorus Magnesium Iron TIBC Ferritin Total Bilirubin AST ALT Alkaline Phosphatase Total Creatine Kinase Troponin T C-Reactive Protein Total Protein Albumin Triglycerides HDL Cholesterol Miscellaneous Test Crossmatch 09/06/17 09/06/17 09/06/17 09:57 10:19 10:57 WBC RBC Hgb Hct MCV MCH RDW Plt Count Lymph % (Auto) [place] % (Auto) [place] # Seg Neutrophils % Seg Neuts % (Manual) Lymphocytes % (Manual) Monocytes % (Manual) Nucleated RBC % Seg Neutrophils # Seg Neutrophils # Man Lymphocytes # (Manual) Monocytes # (Manual) Eosinophils # (Manual) Basophils # (Manual) PT INR POC ABG pH ABG pH POC ABG pCO2 POC ABG pO2 ABG pO2 ABG O2 Saturation ABG Base Excess ABG Hemoglobin Oxyhemoglobin Sodium Potassium Chloride Carbon Dioxide BUN Creatinine Glucose POC Glucose 186 H 162 H Calcium Phosphorus Magnesium Iron TIBC Ferritin Total Bilirubin AST ALT Alkaline Phosphatase Total Creatine Kinase Troponin T C-Reactive Protein Total Protein Albumin Triglycerides HDL Cholesterol Miscellaneous Test Flexitest 1 H Crossmatch 09/06/17 09/06/17 09/06/17 13:12 13:40 17:36 WBC RBC Hgb 8.9 L Hct 28.5 L MCV MCH RDW Plt Count Lymph % (Auto) [place] % (Auto) [place] # Seg Neutrophils % Seg Neuts % (Manual) Lymphocytes % (Manual) Monocytes % (Manual) Nucleated RBC % Seg Neutrophils # Seg Neutrophils # Man Lymphocytes # (Manual) Monocytes # (Manual) Eosinophils # (Manual) Basophils # (Manual) PT INR POC ABG pH ABG pH POC ABG pCO2 POC ABG pO2 ABG pO2 ABG O2 Saturation ABG Base Excess ABG Hemoglobin Oxyhemoglobin Sodium Potassium Chloride Carbon Dioxide BUN Creatinine Glucose POC Glucose 166 H 161 H Calcium Phosphorus Magnesium Iron TIBC Ferritin Total Bilirubin AST ALT Alkaline Phosphatase Total Creatine Kinase Troponin T C-Reactive Protein Total Protein Albumin Triglycerides HDL Cholesterol Miscellaneous Test Crossmatch 09/07/17 09/07/17 09/07/17 00:13 03:50 03:50 WBC 47.0 H* RBC 2.81 L Hgb 8.1 L Hct 24.1 L MCV MCH RDW 22.5 H Plt Count Lymph % (Auto) [place] % (Auto) [place] # Seg Neutrophils % Seg Neuts % (Manual) Lymphocytes % (Manual) 9.0 L Monocytes % (Manual) Nucleated RBC % 6.0 H Seg Neutrophils # Seg Neutrophils # Man 27.3 H Lymphocytes # (Manual) Monocytes # (Manual) 0.9 H Eosinophils # (Manual) 1.9 H Basophils # (Manual) PT INR POC ABG pH ABG pH POC ABG pCO2 POC ABG pO2 ABG pO2 ABG O2 Saturation ABG Base Excess ABG Hemoglobin Oxyhemoglobin Sodium 136 L Potassium Chloride 96.3 L Carbon Dioxide BUN 61 H Creatinine 1.7 H Glucose 132 H POC Glucose 183 H Calcium 7.8 L Phosphorus Magnesium Iron TIBC Ferritin Total Bilirubin AST ALT Alkaline Phosphatase Total Creatine Kinase Troponin T C-Reactive Protein Total Protein Albumin Triglycerides HDL Cholesterol Miscellaneous Test Crossmatch 09/07/17 09/07/17 09/07/17 05:12 05:23 11:48 WBC RBC Hgb Hct MCV MCH RDW Plt Count Lymph % (Auto) [place] % (Auto) [place] # Seg Neutrophils % Seg Neuts % (Manual) Lymphocytes % (Manual) Monocytes % (Manual) Nucleated RBC % Seg Neutrophils # Seg Neutrophils # Man Lymphocytes # (Manual) Monocytes # (Manual) Eosinophils # (Manual) Basophils # (Manual) PT INR POC ABG pH ABG pH POC ABG pCO2 POC ABG pO2 ABG pO2 ABG O2 Saturation ABG Base Excess ABG Hemoglobin 7.7 L Oxyhemoglobin 94.8 L Sodium Potassium Chloride Carbon Dioxide BUN Creatinine Glucose POC Glucose 162 H 200 H Calcium Phosphorus Magnesium Iron TIBC Ferritin Total Bilirubin AST ALT Alkaline Phosphatase Total Creatine Kinase Troponin T C-Reactive Protein Total Protein Albumin Triglycerides HDL Cholesterol Miscellaneous Test Crossmatch 09/07/17 09/07/17 09/08/17 17:07 18:21 00:06 WBC RBC Hgb Hct MCV MCH RDW Plt Count Lymph % (Auto) [place] % (Auto) [place] # Seg Neutrophils % Seg Neuts % (Manual) Lymphocytes % (Manual) Monocytes % (Manual) Nucleated RBC % Seg Neutrophils # Seg Neutrophils # Man Lymphocytes # (Manual) Monocytes # (Manual) Eosinophils # (Manual) Basophils # (Manual) PT INR POC ABG pH ABG pH POC ABG pCO2 POC ABG pO2 ABG pO2 ABG O2 Saturation ABG Base Excess ABG Hemoglobin Oxyhemoglobin Sodium Potassium Chloride Carbon Dioxide BUN Creatinine Glucose POC Glucose 181 H 168 H Calcium Phosphorus Magnesium Iron TIBC Ferritin Total Bilirubin AST ALT Alkaline Phosphatase Total Creatine Kinase Troponin T C-Reactive Protein Total Protein Albumin Triglycerides HDL Cholesterol Miscellaneous Test Crossmatch See Detail 09/08/17 09/08/17 09/08/17 04:05 04:05 04:41 WBC 49.7 H* RBC 2.58 L Hgb 7.3 L Hct 22.7 L MCV MCH RDW 22.5 H Plt Count Lymph % (Auto) [place] % (Auto) [place] # Seg Neutrophils % Seg Neuts % (Manual) 90.5 H Lymphocytes % (Manual) 1.5 L Monocytes % (Manual) Nucleated RBC % Seg Neutrophils # Seg Neutrophils # Man 45.0 H Lymphocytes # (Manual) 0.7 L Monocytes # (Manual) 1.7 H Eosinophils # (Manual) Basophils # (Manual) PT INR POC ABG pH ABG pH POC ABG pCO2 POC ABG pO2 ABG pO2 ABG O2 Saturation ABG Base Excess ABG Hemoglobin Oxyhemoglobin Sodium 132 L Potassium Chloride 92.1 L Carbon Dioxide BUN 82 H Creatinine 2.2 H Glucose 162 H POC Glucose 235 H Calcium 8.3 L Phosphorus 5.20 H D Magnesium Iron TIBC Ferritin Total Bilirubin AST ALT Alkaline Phosphatase 199 H Total Creatine Kinase Troponin T C-Reactive Protein Total Protein 4.5 L Albumin 1.7 L Triglycerides HDL Cholesterol Miscellaneous Test Crossmatch 09/08/17 09/08/17 09/08/17 09:21 11:52 17:38 WBC RBC Hgb Hct MCV MCH RDW Plt Count Lymph % (Auto) [place] % (Auto) [place] # Seg Neutrophils % Seg Neuts % (Manual) Lymphocytes % (Manual) Monocytes % (Manual) Nucleated RBC % Seg Neutrophils # Seg Neutrophils # Man Lymphocytes # (Manual) Monocytes # (Manual) Eosinophils # (Manual) Basophils # (Manual) PT INR POC ABG pH ABG pH POC ABG pCO2 POC ABG pO2 ABG pO2 218.5 H ABG O2 Saturation 99.3 H ABG Base Excess -3.5 L ABG Hemoglobin 7.7 L Oxyhemoglobin Sodium Potassium Chloride Carbon Dioxide BUN Creatinine Glucose POC Glucose 220 H 194 H Calcium Phosphorus Magnesium Iron TIBC Ferritin Total Bilirubin AST ALT Alkaline Phosphatase Total Creatine Kinase Troponin T C-Reactive Protein Total Protein Albumin Triglycerides HDL Cholesterol Miscellaneous Test Crossmatch 09/09/17 09/09/17 09/09/17 00:24 03:37 03:37 WBC 33.5 H RBC 2.36 L Hgb 6.7 L Hct 20.9 L MCV MCH RDW 22.7 H Plt Count Lymph % (Auto) [place] % (Auto) [place] # Seg Neutrophils % Seg Neuts % (Manual) Lymphocytes % (Manual) Monocytes % (Manual) Nucleated RBC % Seg Neutrophils # Seg Neutrophils # Man Lymphocytes # (Manual) Monocytes # (Manual) Eosinophils # (Manual) Basophils # (Manual) PT INR POC ABG pH ABG pH POC ABG pCO2 POC ABG pO2 ABG pO2 ABG O2 Saturation ABG Base Excess ABG Hemoglobin Oxyhemoglobin Sodium 132 L Potassium Chloride 91.6 L Carbon Dioxide 21 L BUN 101 H Creatinine 2.6 H Glucose 156 H POC Glucose 182 H Calcium 8.3 L Phosphorus 5.90 H Magnesium 2.60 H Iron TIBC Ferritin Total Bilirubin AST ALT Alkaline Phosphatase Total Creatine Kinase Troponin T C-Reactive Protein Total Protein Albumin Triglycerides HDL Cholesterol Miscellaneous Test Crossmatch 09/09/17 09/09/17 09/09/17 05:29 12:03 18:05 WBC RBC Hgb Hct MCV MCH RDW Plt Count Lymph % (Auto) [place] % (Auto) [place] # Seg Neutrophils % Seg Neuts % (Manual) Lymphocytes % (Manual) Monocytes % (Manual) Nucleated RBC % Seg Neutrophils # Seg Neutrophils # Man Lymphocytes # (Manual) Monocytes # (Manual) Eosinophils # (Manual) Basophils # (Manual) PT INR POC ABG pH ABG pH POC ABG pCO2 POC ABG pO2 ABG pO2 ABG O2 Saturation ABG Base Excess ABG Hemoglobin Oxyhemoglobin Sodium Potassium Chloride Carbon Dioxide BUN Creatinine Glucose POC Glucose 168 H 143 H 173 H Calcium Phosphorus Magnesium Iron TIBC Ferritin Total Bilirubin AST ALT Alkaline Phosphatase Total Creatine Kinase Troponin T C-Reactive Protein Total Protein Albumin Triglycerides HDL Cholesterol Miscellaneous Test Crossmatch 09/09/17 09/09/17 09/10/17 23:30 Unknown 05:04 WBC RBC Hgb Hct MCV MCH RDW Plt Count Lymph % (Auto) [place] % (Auto) [place] # Seg Neutrophils % Seg Neuts % (Manual) Lymphocytes % (Manual) Monocytes % (Manual) Nucleated RBC % Seg Neutrophils # Seg Neutrophils # Man Lymphocytes # (Manual) Monocytes # (Manual) Eosinophils # (Manual) Basophils # (Manual) PT INR POC ABG pH ABG pH 7.323 L POC ABG pCO2 POC ABG pO2 ABG pO2 94.1 H ABG O2 Saturation ABG Base Excess -4.8 L ABG Hemoglobin 8.0 L Oxyhemoglobin 94.9 L Sodium Potassium Chloride Carbon Dioxide BUN Creatinine Glucose POC Glucose 212 H 155 H Calcium Phosphorus Magnesium Iron TIBC Ferritin Total Bilirubin AST ALT Alkaline Phosphatase Total Creatine Kinase Troponin T C-Reactive Protein Total Protein Albumin Triglycerides HDL Cholesterol Miscellaneous Test Crossmatch 09/10/17 09/10/17 09/10/17 07:00 09:55 12:22 WBC 24.7 H RBC 2.62 L Hgb 7.5 L Hct 22.5 L MCV MCH RDW 20.8 H Plt Count Lymph % (Auto) [place] % (Auto) [place] # Seg Neutrophils % Seg Neuts % (Manual) Lymphocytes % (Manual) Monocytes % (Manual) Nucleated RBC % Seg Neutrophils # Seg Neutrophils # Man Lymphocytes # (Manual) Monocytes # (Manual) Eosinophils # (Manual) Basophils # (Manual) PT INR POC ABG pH ABG pH POC ABG pCO2 POC ABG pO2 ABG pO2 ABG O2 Saturation ABG Base Excess ABG Hemoglobin Oxyhemoglobin Sodium Potassium Chloride 97.9 L Carbon Dioxide BUN 78 H Creatinine 2.0 H Glucose 126 H POC Glucose 183 H Calcium 8.2 L Phosphorus Magnesium Iron TIBC Ferritin Total Bilirubin AST ALT Alkaline Phosphatase Total Creatine Kinase Troponin T C-Reactive Protein Total Protein Albumin Triglycerides HDL Cholesterol Miscellaneous Test Crossmatch 09/11/17 09/11/17 09/11/17 00:08 03:50 05:28 WBC 21.6 H RBC 2.52 L Hgb 7.4 L Hct 22.2 L MCV MCH RDW 21.5 H Plt Count Lymph % (Auto) [place] % (Auto) [place] # Seg Neutrophils % Seg Neuts % (Manual) 92.0 H Lymphocytes % (Manual) 3.0 L Monocytes % (Manual) Nucleated RBC % Seg Neutrophils # Seg Neutrophils # Man 19.9 H Lymphocytes # (Manual) 0.6 L Monocytes # (Manual) Eosinophils # (Manual) Basophils # (Manual) PT INR POC ABG pH ABG pH POC ABG pCO2 POC ABG pO2 ABG pO2 ABG O2 Saturation ABG Base Excess ABG Hemoglobin Oxyhemoglobin Sodium Potassium Chloride Carbon Dioxide BUN Creatinine Glucose POC Glucose 213 H 181 H Calcium Phosphorus Magnesium Iron TIBC Ferritin Total Bilirubin AST ALT Alkaline Phosphatase Total Creatine Kinase Troponin T C-Reactive Protein Total Protein Albumin Triglycerides HDL Cholesterol Miscellaneous Test Crossmatch 09/11/17 09/11/17 09/11/17 11:55 17:56 23:12 WBC RBC Hgb Hct MCV MCH RDW Plt Count Lymph % (Auto) [place] % (Auto) [place] # Seg Neutrophils % Seg Neuts % (Manual) Lymphocytes % (Manual) Monocytes % (Manual) Nucleated RBC % Seg Neutrophils # Seg Neutrophils # Man Lymphocytes # (Manual) Monocytes # (Manual) Eosinophils # (Manual) Basophils # (Manual) PT INR POC ABG pH ABG pH POC ABG pCO2 POC ABG pO2 ABG pO2 ABG O2 Saturation ABG Base Excess ABG Hemoglobin Oxyhemoglobin Sodium Potassium Chloride Carbon Dioxide 21 L BUN 80 H Creatinine 2.1 H Glucose 170 H POC Glucose 277 H 206 H Calcium 8.0 L Phosphorus Magnesium Iron TIBC Ferritin Total Bilirubin AST ALT Alkaline Phosphatase Total Creatine Kinase Troponin T C-Reactive Protein Total Protein Albumin Triglycerides HDL Cholesterol Miscellaneous Test Crossmatch 09/11/17 09/12/17 09/12/17 23:36 05:25 05:25 WBC 17.4 H RBC 2.29 L Hgb 6.7 L Hct 20.4 L MCV MCH RDW 21.2 H Plt Count Lymph % (Auto) [place] % (Auto) [place] # Seg Neutrophils % Seg Neuts % (Manual) 79.0 H Lymphocytes % (Manual) 5.0 L Monocytes % (Manual) Nucleated RBC % 1.0 H Seg Neutrophils # Seg Neutrophils # Man 13.7 H Lymphocytes # (Manual) 0.9 L Monocytes # (Manual) 1.2 H Eosinophils # (Manual) Basophils # (Manual) PT INR POC ABG pH ABG pH POC ABG pCO2 POC ABG pO2 ABG pO2 ABG O2 Saturation ABG Base Excess ABG Hemoglobin Oxyhemoglobin Sodium Potassium Chloride Carbon Dioxide BUN Creatinine Glucose POC Glucose 190 H Calcium Phosphorus Magnesium Iron 22 L TIBC 81 L Ferritin Total Bilirubin AST ALT Alkaline Phosphatase Total Creatine Kinase Troponin T C-Reactive Protein Total Protein Albumin Triglycerides HDL Cholesterol Miscellaneous Test Crossmatch 09/12/17 09/12/17 09/12/17 05:25 05:36 09:14 WBC RBC Hgb Hct MCV MCH RDW Plt Count Lymph % (Auto) [place] % (Auto) [place] # Seg Neutrophils % Seg Neuts % (Manual) Lymphocytes % (Manual) Monocytes % (Manual) Nucleated RBC % Seg Neutrophils # Seg Neutrophils # Man Lymphocytes # (Manual) Monocytes # (Manual) Eosinophils # (Manual) Basophils # (Manual) PT INR POC ABG pH ABG pH POC ABG pCO2 POC ABG pO2 ABG pO2 ABG O2 Saturation ABG Base Excess ABG Hemoglobin Oxyhemoglobin Sodium Potassium Chloride Carbon Dioxide BUN Creatinine Glucose POC Glucose 141 H Calcium Phosphorus Magnesium Iron TIBC Ferritin > 2000.0 H Total Bilirubin AST ALT Alkaline Phosphatase Total Creatine Kinase Troponin T C-Reactive Protein Total Protein Albumin Triglycerides HDL Cholesterol Miscellaneous Test Crossmatch See Detail 09/12/17 09/12/17 09/12/17 11:18 15:22 17:18 WBC RBC Hgb 8.5 L Hct 25.4 L MCV MCH RDW Plt Count Lymph % (Auto) [place] % (Auto) [place] # Seg Neutrophils % Seg Neuts % (Manual) Lymphocytes % (Manual) Monocytes % (Manual) Nucleated RBC % Seg Neutrophils # Seg Neutrophils # Man Lymphocytes # (Manual) Monocytes # (Manual) Eosinophils # (Manual) Basophils # (Manual) PT INR POC ABG pH ABG pH POC ABG pCO2 POC ABG pO2 ABG pO2 ABG O2 Saturation ABG Base Excess ABG Hemoglobin Oxyhemoglobin Sodium Potassium Chloride Carbon Dioxide BUN Creatinine Glucose POC Glucose 262 H 193 H Calcium Phosphorus Magnesium Iron TIBC Ferritin Total Bilirubin AST ALT Alkaline Phosphatase Total Creatine Kinase Troponin T C-Reactive Protein Total Protein Albumin Triglycerides HDL Cholesterol Miscellaneous Test Crossmatch 09/13/17 09/13/17 09/13/17 00:05 06:25 11:36 WBC RBC Hgb Hct MCV MCH RDW Plt Count Lymph % (Auto) [place] % (Auto) [place] # Seg Neutrophils % Seg Neuts % (Manual) Lymphocytes % (Manual) Monocytes % (Manual) Nucleated RBC % Seg Neutrophils # Seg Neutrophils # Man Lymphocytes # (Manual) Monocytes # (Manual) Eosinophils # (Manual) Basophils # (Manual) PT INR POC ABG pH 7.347 L ABG pH POC ABG pCO2 34.3 L POC ABG pO2 134 H ABG pO2 ABG O2 Saturation ABG Base Excess ABG Hemoglobin Oxyhemoglobin Sodium Potassium Chloride Carbon Dioxide BUN Creatinine Glucose POC Glucose 235 H 286 H Calcium Phosphorus Magnesium Iron TIBC Ferritin Total Bilirubin AST ALT Alkaline Phosphatase Total Creatine Kinase Troponin T C-Reactive Protein Total Protein Albumin Triglycerides HDL Cholesterol Miscellaneous Test Crossmatch 09/13/17 09/13/17 09/13/17 11:56 17:25 23:18 WBC RBC Hgb Hct MCV MCH RDW Plt Count Lymph % (Auto) [place] % (Auto) [place] # Seg Neutrophils % Seg Neuts % (Manual) Lymphocytes % (Manual) Monocytes % (Manual) Nucleated RBC % Seg Neutrophils # Seg Neutrophils # Man Lymphocytes # (Manual) Monocytes # (Manual) Eosinophils # (Manual) Basophils # (Manual) PT INR POC ABG pH ABG pH POC ABG pCO2 POC ABG pO2 ABG pO2 ABG O2 Saturation ABG Base Excess ABG Hemoglobin Oxyhemoglobin Sodium Potassium Chloride Carbon Dioxide BUN Creatinine Glucose POC Glucose 318 H 278 H 230 H Calcium Phosphorus Magnesium Iron TIBC Ferritin Total Bilirubin AST ALT Alkaline Phosphatase Total Creatine Kinase Troponin T C-Reactive Protein Total Protein Albumin Triglycerides HDL Cholesterol Miscellaneous Test Crossmatch 09/13/17 09/13/17 09/13/17 Unknown Unknown Unknown WBC 15.6 H RBC 2.72 L Hgb 8.1 L Hct 23.9 L MCV MCH RDW 19.5 H Plt Count 137 L Lymph % (Auto) [place] % (Auto) [place] # Seg Neutrophils % Seg Neuts % (Manual) 73.0 H Lymphocytes % (Manual) 3.0 L Monocytes % (Manual) 19.0 H Nucleated RBC % 2.0 H Seg Neutrophils # Seg Neutrophils # Man 11.4 H Lymphocytes # (Manual) 0.5 L Monocytes # (Manual) 3.0 H Eosinophils # (Manual) Basophils # (Manual) PT INR POC ABG pH ABG pH POC ABG pCO2 POC ABG pO2 ABG pO2 ABG O2 Saturation ABG Base Excess ABG Hemoglobin Oxyhemoglobin Sodium Potassium Chloride Carbon Dioxide 19 L BUN 103 H Creatinine 2.6 H Glucose 173 H POC Glucose Calcium Phosphorus Magnesium Iron TIBC Ferritin Total Bilirubin AST ALT Alkaline Phosphatase Total Creatine Kinase Troponin T C-Reactive Protein Total Protein Albumin < 0.2 L Triglycerides HDL Cholesterol Miscellaneous Test Crossmatch 09/14/17 09/14/17 09/14/17 03:15 03:15 05:16 WBC 12.5 H RBC 2.55 L Hgb 7.6 L Hct 22.5 L MCV MCH RDW 19.8 H Plt Count 139 L Lymph % (Auto) [place] % (Auto) [place] # Seg Neutrophils % Seg Neuts % (Manual) Lymphocytes % (Manual) Monocytes % (Manual) Nucleated RBC % Seg Neutrophils # Seg Neutrophils # Man Lymphocytes # (Manual) Monocytes # (Manual) Eosinophils # (Manual) Basophils # (Manual) PT INR POC ABG pH ABG pH POC ABG pCO2 POC ABG pO2 ABG pO2 ABG O2 Saturation ABG Base Excess ABG Hemoglobin Oxyhemoglobin Sodium Potassium Chloride Carbon Dioxide BUN 75 H Creatinine 2.1 H Glucose 217 H POC Glucose 283 H Calcium Phosphorus 2.20 L D Magnesium Iron TIBC Ferritin Total Bilirubin AST ALT Alkaline Phosphatase Total Creatine Kinase Troponin T C-Reactive Protein Total Protein Albumin Triglycerides HDL Cholesterol Miscellaneous Test Crossmatch 09/14/17 09/14/17 09/15/17 12:11 17:47 00:03 WBC RBC Hgb Hct MCV MCH RDW Plt Count Lymph % (Auto) [place] % (Auto) [place] # Seg Neutrophils % Seg Neuts % (Manual) Lymphocytes % (Manual) Monocytes % (Manual) Nucleated RBC % Seg Neutrophils # Seg Neutrophils # Man Lymphocytes # (Manual) Monocytes # (Manual) Eosinophils # (Manual) Basophils # (Manual) PT INR POC ABG pH ABG pH POC ABG pCO2 POC ABG pO2 ABG pO2 ABG O2 Saturation ABG Base Excess ABG Hemoglobin Oxyhemoglobin Sodium Potassium Chloride Carbon Dioxide BUN Creatinine Glucose POC Glucose 251 H 289 H 229 H Calcium Phosphorus Magnesium Iron TIBC Ferritin Total Bilirubin AST ALT Alkaline Phosphatase Total Creatine Kinase Troponin T C-Reactive Protein Total Protein Albumin Triglycerides HDL Cholesterol Miscellaneous Test Crossmatch 09/15/17 09/15/17 09/15/17 05:00 05:00 05:30 WBC 11.7 H RBC 2.50 L Hgb 7.4 L Hct 22.7 L MCV MCH RDW 20.5 H Plt Count Lymph % (Auto) [place] % (Auto) [place] # Seg Neutrophils % Seg Neuts % (Manual) Lymphocytes % (Manual) 11.0 L Monocytes % (Manual) 11.0 H Nucleated RBC % Seg Neutrophils # Seg Neutrophils # Man Lymphocytes # (Manual) Monocytes # (Manual) 1.3 H Eosinophils # (Manual) Basophils # (Manual) PT INR POC ABG pH ABG pH POC ABG pCO2 POC ABG pO2 ABG pO2 ABG O2 Saturation ABG Base Excess ABG Hemoglobin Oxyhemoglobin Sodium Potassium Chloride 97.0 L Carbon Dioxide 21 L BUN 94 H Creatinine 2.4 H Glucose 194 H POC Glucose 225 H Calcium Phosphorus Magnesium Iron TIBC Ferritin Total Bilirubin AST ALT Alkaline Phosphatase Total Creatine Kinase Troponin T C-Reactive Protein Total Protein Albumin Triglycerides HDL Cholesterol Miscellaneous Test Crossmatch 09/15/17 09/15/17 09/15/17 07:48 11:38 12:45 WBC RBC 1.93 L Hgb 5.7 L* Hct 17.1 L* MCV MCH RDW 20.2 H Plt Count 125 L Lymph % (Auto) [place] % (Auto) [place] # Seg Neutrophils % Seg Neuts % (Manual) 79.0 H Lymphocytes % (Manual) 8.0 L Monocytes % (Manual) Nucleated RBC % Seg Neutrophils # Seg Neutrophils # Man Lymphocytes # (Manual) 0.8 L Monocytes # (Manual) Eosinophils # (Manual) Basophils # (Manual) PT INR POC ABG pH ABG pH POC ABG pCO2 POC ABG pO2 ABG pO2 ABG O2 Saturation ABG Base Excess ABG Hemoglobin Oxyhemoglobin Sodium Potassium Chloride Carbon Dioxide BUN Creatinine Glucose POC Glucose 245 H 253 H Calcium Phosphorus Magnesium Iron TIBC Ferritin Total Bilirubin AST ALT Alkaline Phosphatase Total Creatine Kinase Troponin T C-Reactive Protein Total Protein Albumin Triglycerides HDL Cholesterol Miscellaneous Test Crossmatch 09/15/17 09/15/17 09/15/17 12:45 12:45 22:25 WBC 19.6 H RBC 3.32 L Hgb 10.0 L D Hct 29.3 L D MCV MCH RDW 17.0 H Plt Count 123 L Lymph % (Auto) [place] % (Auto) [place] # Seg Neutrophils % Seg Neuts % (Manual) Lymphocytes % (Manual) 12.0 L Monocytes % (Manual) Nucleated RBC % 5.0 H Seg Neutrophils # Seg Neutrophils # Man 11.0 H Lymphocytes # (Manual) Monocytes # (Manual) 1.2 H Eosinophils # (Manual) Basophils # (Manual) PT 15.4 H INR 1.16 H POC ABG pH ABG pH POC ABG pCO2 POC ABG pO2 ABG pO2 ABG O2 Saturation ABG Base Excess ABG Hemoglobin Oxyhemoglobin Sodium Potassium Chloride Carbon Dioxide BUN Creatinine Glucose POC Glucose Calcium Phosphorus Magnesium Iron TIBC Ferritin Total Bilirubin AST ALT Alkaline Phosphatase Total Creatine Kinase Troponin T C-Reactive Protein Total Protein Albumin Triglycerides HDL Cholesterol Miscellaneous Test Crossmatch See Detail 09/15/17 09/15/17 09/16/17 22:25 23:38 01:26 WBC RBC Hgb Hct MCV MCH RDW Plt Count Lymph % (Auto) [place] % (Auto) [place] # Seg Neutrophils % Seg Neuts % (Manual) Lymphocytes % (Manual) Monocytes % (Manual) Nucleated RBC % Seg Neutrophils # Seg Neutrophils # Man Lymphocytes # (Manual) Monocytes # (Manual) Eosinophils # (Manual) Basophils # (Manual) PT INR POC ABG pH ABG pH POC ABG pCO2 POC ABG pO2 ABG pO2 ABG O2 Saturation ABG Base Excess ABG Hemoglobin Oxyhemoglobin Sodium Potassium Chloride Carbon Dioxide 17 L BUN 100 H Creatinine 2.6 H Glucose POC Glucose 58 L 132 H Calcium 8.3 L Phosphorus Magnesium 1.60 L Iron TIBC Ferritin Total Bilirubin 2.80 H AST 118 H ALT Alkaline Phosphatase 316 H Total Creatine Kinase Troponin T C-Reactive Protein Total Protein 4.0 L Albumin 1.8 L Triglycerides HDL Cholesterol Miscellaneous Test Crossmatch 10/23/17 10/23/17 10/23/17 05:30 05:30 05:54 WBC 24.6 H RBC 3.22 L Hgb 9.8 L Hct 28.6 L MCV MCH RDW 17.4 H Plt Count 127 L Lymph % (Auto) [place] % (Auto) [place] # Seg Neutrophils % Seg Neuts % (Manual) Lymphocytes % (Manual) Monocytes % (Manual) Nucleated RBC % Seg Neutrophils # Seg Neutrophils # Man Lymphocytes # (Manual) Monocytes # (Manual) Eosinophils # (Manual) Basophils # (Manual) PT INR POC ABG pH ABG pH POC ABG pCO2 POC ABG pO2 ABG pO2 ABG O2 Saturation ABG Base Excess ABG Hemoglobin Oxyhemoglobin Sodium Potassium Chloride Carbon Dioxide 18 L BUN 109 H Creatinine 2.5 H Glucose 140 H POC Glucose 154 H Calcium Phosphorus 4.80 H Magnesium Iron TIBC Ferritin Total Bilirubin 2.40 H AST 90 H ALT Alkaline Phosphatase 298 H Total Creatine Kinase 20 L Troponin T C-Reactive Protein Total Protein 4.1 L Albumin 1.8 L Triglycerides HDL Cholesterol Miscellaneous Test Crossmatch 09/16/17 09/16/17 09/16/17 11:49 17:04 23:18 WBC RBC Hgb Hct MCV MCH RDW Plt Count Lymph % (Auto) [place] % (Auto) [place] # Seg Neutrophils % Seg Neuts % (Manual) Lymphocytes % (Manual) Monocytes % (Manual) Nucleated RBC % Seg Neutrophils # Seg Neutrophils # Man Lymphocytes # (Manual) Monocytes # (Manual) Eosinophils # (Manual) Basophils # (Manual) PT INR POC ABG pH ABG pH POC ABG pCO2 POC ABG pO2 ABG pO2 ABG O2 Saturation ABG Base Excess ABG Hemoglobin Oxyhemoglobin Sodium Potassium Chloride Carbon Dioxide BUN Creatinine Glucose POC Glucose 167 H 156 H 162 H Calcium Phosphorus Magnesium Iron TIBC Ferritin Total Bilirubin AST ALT Alkaline Phosphatase Total Creatine Kinase Troponin T C-Reactive Protein Total Protein Albumin Triglycerides HDL Cholesterol Miscellaneous Test Crossmatch 09/17/17 09/17/17 09/17/17 05:27 06:10 06:10 WBC 34.6 H RBC 2.75 L Hgb 8.4 L Hct 24.8 L MCV MCH RDW 18.3 H Plt Count Lymph % (Auto) [place] % (Auto) [place] # Seg Neutrophils % Seg Neuts % (Manual) 77.0 H Lymphocytes % (Manual) 5.0 L Monocytes % (Manual) Nucleated RBC % 2.0 H Seg Neutrophils # Seg Neutrophils # Man 26.6 H Lymphocytes # (Manual) Monocytes # (Manual) 2.4 H Eosinophils # (Manual) Basophils # (Manual) PT INR POC ABG pH ABG pH POC ABG pCO2 POC ABG pO2 ABG pO2 ABG O2 Saturation ABG Base Excess ABG Hemoglobin Oxyhemoglobin Sodium Potassium Chloride Carbon Dioxide BUN 82 H Creatinine 2.1 H Glucose 252 H POC Glucose 243 H Calcium 8.3 L Phosphorus Magnesium Iron TIBC Ferritin Total Bilirubin AST ALT Alkaline Phosphatase Total Creatine Kinase Troponin T C-Reactive Protein Total Protein Albumin Triglycerides HDL Cholesterol Miscellaneous Test Crossmatch 09/17/17 09/17/17 09/18/17 11:42 17:12 00:08 WBC RBC Hgb Hct MCV MCH RDW Plt Count Lymph % (Auto) [place] % (Auto) [place] # Seg Neutrophils % Seg Neuts % (Manual) Lymphocytes % (Manual) Monocytes % (Manual) Nucleated RBC % Seg Neutrophils # Seg Neutrophils # Man Lymphocytes # (Manual) Monocytes # (Manual) Eosinophils # (Manual) Basophils # (Manual) PT INR POC ABG pH ABG pH POC ABG pCO2 POC ABG pO2 ABG pO2 ABG O2 Saturation ABG Base Excess ABG Hemoglobin Oxyhemoglobin Sodium Potassium Chloride Carbon Dioxide BUN Creatinine Glucose POC Glucose 232 H 309 H 275 H Calcium Phosphorus Magnesium Iron TIBC Ferritin Total Bilirubin AST ALT Alkaline Phosphatase Total Creatine Kinase Troponin T C-Reactive Protein Total Protein Albumin Triglycerides HDL Cholesterol Miscellaneous Test Crossmatch 09/18/17 09/18/17 09/18/17 05:10 05:10 05:23 WBC 24.4 H RBC 2.57 L Hgb 7.8 L Hct 23.2 L MCV MCH RDW 19.5 H Plt Count Lymph % (Auto) [place] % (Auto) [place] # Seg Neutrophils % Seg Neuts % (Manual) 78.0 H Lymphocytes % (Manual) 6.0 L Monocytes % (Manual) Nucleated RBC % 2.0 H Seg Neutrophils # Seg Neutrophils # Man 19.0 H Lymphocytes # (Manual) Monocytes # (Manual) Eosinophils # (Manual) Basophils # (Manual) PT INR POC ABG pH ABG pH POC ABG pCO2 POC ABG pO2 ABG pO2 ABG O2 Saturation ABG Base Excess ABG Hemoglobin Oxyhemoglobin Sodium Potassium Chloride Carbon Dioxide BUN 103 H Creatinine 2.8 H Glucose 173 H POC Glucose 224 H Calcium Phosphorus Magnesium Iron TIBC Ferritin Total Bilirubin AST ALT Alkaline Phosphatase Total Creatine Kinase Troponin T C-Reactive Protein Total Protein Albumin Triglycerides HDL Cholesterol Miscellaneous Test Crossmatch 09/18/17 09/18/17 09/18/17 13:59 18:35 23:19 WBC RBC Hgb Hct MCV MCH RDW Plt Count Lymph % (Auto) [place] % (Auto) [place] # Seg Neutrophils % Seg Neuts % (Manual) Lymphocytes % (Manual) Monocytes % (Manual) Nucleated RBC % Seg Neutrophils # Seg Neutrophils # Man Lymphocytes # (Manual) Monocytes # (Manual) Eosinophils # (Manual) Basophils # (Manual) PT INR POC ABG pH ABG pH POC ABG pCO2 POC ABG pO2 ABG pO2 ABG O2 Saturation ABG Base Excess ABG Hemoglobin Oxyhemoglobin Sodium Potassium Chloride Carbon Dioxide BUN Creatinine Glucose POC Glucose 268 H 220 H 188 H Calcium Phosphorus Magnesium Iron TIBC Ferritin Total Bilirubin AST ALT Alkaline Phosphatase Total Creatine Kinase Troponin T C-Reactive Protein Total Protein Albumin Triglycerides HDL Cholesterol Miscellaneous Test Crossmatch 09/19/17 09/19/17 09/19/17 05:45 06:00 11:41 WBC 17.6 H RBC 2.57 L Hgb 7.9 L Hct 23.2 L MCV MCH RDW 19.0 H Plt Count Lymph % (Auto) [place] % (Auto) [place] # Seg Neutrophils % Seg Neuts % (Manual) Lymphocytes % (Manual) 9.0 L Monocytes % (Manual) Nucleated RBC % Seg Neutrophils # Seg Neutrophils # Man 11.4 H Lymphocytes # (Manual) Monocytes # (Manual) 0.9 H Eosinophils # (Manual) Basophils # (Manual) PT INR POC ABG pH ABG pH POC ABG pCO2 POC ABG pO2 ABG pO2 ABG O2 Saturation ABG Base Excess ABG Hemoglobin Oxyhemoglobin Sodium Potassium Chloride Carbon Dioxide BUN Creatinine Glucose POC Glucose 178 H 126 H Calcium Phosphorus Magnesium Iron TIBC Ferritin Total Bilirubin AST ALT Alkaline Phosphatase Total Creatine Kinase Troponin T C-Reactive Protein Total Protein Albumin Triglycerides HDL Cholesterol Miscellaneous Test Crossmatch 09/19/17 09/19/17 09/20/17 17:08 23:46 04:46 WBC RBC Hgb Hct MCV MCH RDW Plt Count Lymph % (Auto) [place] % (Auto) [place] # Seg Neutrophils % Seg Neuts % (Manual) Lymphocytes % (Manual) Monocytes % (Manual) Nucleated RBC % Seg Neutrophils # Seg Neutrophils # Man Lymphocytes # (Manual) Monocytes # (Manual) Eosinophils # (Manual) Basophils # (Manual) PT INR POC ABG pH ABG pH POC ABG pCO2 POC ABG pO2 ABG pO2 ABG O2 Saturation ABG Base Excess ABG Hemoglobin Oxyhemoglobin Sodium Potassium 5.2 H D Chloride 97.4 L Carbon Dioxide 20 L BUN 98 H Creatinine 2.4 H Glucose 187 H POC Glucose 263 H 161 H Calcium Phosphorus Magnesium Iron TIBC Ferritin Total Bilirubin AST ALT Alkaline Phosphatase Total Creatine Kinase Troponin T C-Reactive Protein Total Protein Albumin Triglycerides HDL Cholesterol Miscellaneous Test Crossmatch 09/20/17 09/20/17 09/20/17 05:38 11:36 11:41 WBC 24.5 H RBC 2.84 L Hgb 8.2 L Hct 26.2 L MCV MCH RDW 20.0 H Plt Count 470 H Lymph % (Auto) [place] % (Auto) [place] # Seg Neutrophils % Seg Neuts % (Manual) Lymphocytes % (Manual) Monocytes % (Manual) Nucleated RBC % Seg Neutrophils # Seg Neutrophils # Man Lymphocytes # (Manual) Monocytes # (Manual) Eosinophils # (Manual) Basophils # (Manual) PT INR POC ABG pH ABG pH POC ABG pCO2 POC ABG pO2 ABG pO2 ABG O2 Saturation ABG Base Excess ABG Hemoglobin Oxyhemoglobin Sodium Potassium Chloride Carbon Dioxide BUN Creatinine Glucose POC Glucose 215 H 220 H Calcium Phosphorus Magnesium Iron TIBC Ferritin Total Bilirubin AST ALT Alkaline Phosphatase Total Creatine Kinase Troponin T C-Reactive Protein Total Protein Albumin Triglycerides HDL Cholesterol Miscellaneous Test Crossmatch 09/20/17 09/21/17 09/21/17 17:45 00:51 04:00 WBC RBC Hgb Hct MCV MCH RDW Plt Count Lymph % (Auto) [place] % (Auto) [place] # Seg Neutrophils % Seg Neuts % (Manual) Lymphocytes % (Manual) Monocytes % (Manual) Nucleated RBC % Seg Neutrophils # Seg Neutrophils # Man Lymphocytes # (Manual) Monocytes # (Manual) Eosinophils # (Manual) Basophils # (Manual) PT INR POC ABG pH ABG pH POC ABG pCO2 POC ABG pO2 ABG pO2 ABG O2 Saturation ABG Base Excess ABG Hemoglobin Oxyhemoglobin Sodium Potassium 3.2 L D Chloride 96.4 L Carbon Dioxide BUN 63 H Creatinine 1.8 H Glucose 204 H POC Glucose 122 H 137 H Calcium 8.3 L Phosphorus 2.10 L D Magnesium 1.50 L Iron TIBC Ferritin Total Bilirubin AST ALT Alkaline Phosphatase Total Creatine Kinase Troponin T C-Reactive Protein Total Protein Albumin Triglycerides HDL Cholesterol Miscellaneous Test Crossmatch 09/21/17 09/21/17 09/21/17 05:45 08:30 11:50 WBC 27.5 H RBC 2.52 L Hgb 7.7 L Hct 22.8 L MCV MCH RDW 19.2 H Plt Count 457 H Lymph % (Auto) [place] % (Auto) [place] # Seg Neutrophils % Seg Neuts % (Manual) Lymphocytes % (Manual) Monocytes % (Manual) Nucleated RBC % Seg Neutrophils # Seg Neutrophils # Man Lymphocytes # (Manual) Monocytes # (Manual) Eosinophils # (Manual) Basophils # (Manual) PT INR POC ABG pH ABG pH POC ABG pCO2 POC ABG pO2 ABG pO2 ABG O2 Saturation ABG Base Excess ABG Hemoglobin Oxyhemoglobin Sodium Potassium Chloride Carbon Dioxide BUN Creatinine Glucose POC Glucose 243 H Calcium Phosphorus Magnesium Iron TIBC Ferritin Total Bilirubin AST ALT Alkaline Phosphatase Total Creatine Kinase Troponin T C-Reactive Protein Total Protein Albumin Triglycerides HDL Cholesterol Miscellaneous Test Crossmatch See Detail 09/21/17 09/21/17 09/22/17 13:03 16:39 00:09 WBC RBC Hgb Hct MCV MCH RDW Plt Count Lymph % (Auto) [place] % (Auto) [place] # Seg Neutrophils % Seg Neuts % (Manual) Lymphocytes % (Manual) Monocytes % (Manual) Nucleated RBC % Seg Neutrophils # Seg Neutrophils # Man Lymphocytes # (Manual) Monocytes # (Manual) Eosinophils # (Manual) Basophils # (Manual) PT INR POC ABG pH ABG pH POC ABG pCO2 POC ABG pO2 ABG pO2 ABG O2 Saturation ABG Base Excess ABG Hemoglobin Oxyhemoglobin Sodium Potassium Chloride Carbon Dioxide BUN Creatinine Glucose POC Glucose 271 H 160 H 191 H Calcium Phosphorus Magnesium Iron TIBC Ferritin Total Bilirubin AST ALT Alkaline Phosphatase Total Creatine Kinase Troponin T C-Reactive Protein Total Protein Albumin Triglycerides HDL Cholesterol Miscellaneous Test Crossmatch 09/22/17 09/22/17 09/22/17 03:37 05:40 07:35 WBC 29.7 H RBC 2.71 L Hgb 8.1 L Hct 24.1 L MCV MCH RDW 19.6 H Plt Count 491 H Lymph % (Auto) [place] % (Auto) [place] # Seg Neutrophils % Seg Neuts % (Manual) 70.5 H Lymphocytes % (Manual) 12.5 L Monocytes % (Manual) 10.0 H Nucleated RBC % 2.0 H Seg Neutrophils # Seg Neutrophils # Man 20.9 H Lymphocytes # (Manual) Monocytes # (Manual) 3.0 H Eosinophils # (Manual) Basophils # (Manual) PT INR POC ABG pH ABG pH POC ABG pCO2 POC ABG pO2 ABG pO2 ABG O2 Saturation ABG Base Excess ABG Hemoglobin Oxyhemoglobin Sodium Potassium 3.0 L Chloride 95.9 L Carbon Dioxide BUN 74 H Creatinine 2.1 H Glucose 126 H POC Glucose 150 H Calcium Phosphorus 2.10 L Magnesium 1.40 L Iron TIBC Ferritin Total Bilirubin AST ALT Alkaline Phosphatase 311 H Total Creatine Kinase Troponin T C-Reactive Protein Total Protein 4.4 L Albumin 2.0 L Triglycerides HDL Cholesterol Miscellaneous Test Crossmatch 09/22/17 09/23/17 09/23/17 12:20 05:02 05:02 WBC 37.5 H RBC 2.54 L Hgb 7.3 L Hct 22.9 L MCV MCH RDW 19.4 H Plt Count 471 H Lymph % (Auto) [place] % (Auto) [place] # Seg Neutrophils % Seg Neuts % (Manual) Lymphocytes % (Manual) 8.0 L Monocytes % (Manual) Nucleated RBC % 1.0 H Seg Neutrophils # Seg Neutrophils # Man 15.0 H Lymphocytes # (Manual) Monocytes # (Manual) 1.9 H Eosinophils # (Manual) Basophils # (Manual) PT INR POC ABG pH ABG pH POC ABG pCO2 POC ABG pO2 ABG pO2 ABG O2 Saturation ABG Base Excess ABG Hemoglobin Oxyhemoglobin Sodium 136 L Potassium 3.0 L Chloride 93.8 L Carbon Dioxide BUN 99 H Creatinine 2.7 H Glucose POC Glucose 106 H Calcium 8.2 L Phosphorus 2.40 L Magnesium Iron TIBC Ferritin Total Bilirubin AST ALT Alkaline Phosphatase Total Creatine Kinase Troponin T C-Reactive Protein Total Protein Albumin Triglycerides HDL Cholesterol Miscellaneous Test Crossmatch 09/23/17 09/23/17 09/23/17 05:39 11:21 18:19 WBC RBC Hgb Hct MCV MCH RDW Plt Count Lymph % (Auto) [place] % (Auto) [place] # Seg Neutrophils % Seg Neuts % (Manual) Lymphocytes % (Manual) Monocytes % (Manual) Nucleated RBC % Seg Neutrophils # Seg Neutrophils # Man Lymphocytes # (Manual) Monocytes # (Manual) Eosinophils # (Manual) Basophils # (Manual) PT INR POC ABG pH ABG pH POC ABG pCO2 POC ABG pO2 ABG pO2 ABG O2 Saturation ABG Base Excess ABG Hemoglobin Oxyhemoglobin Sodium Potassium Chloride Carbon Dioxide BUN Creatinine Glucose POC Glucose 118 H 130 H 189 H Calcium Phosphorus Magnesium Iron TIBC Ferritin Total Bilirubin AST ALT Alkaline Phosphatase Total Creatine Kinase Troponin T C-Reactive Protein Total Protein Albumin Triglycerides HDL Cholesterol Miscellaneous Test Crossmatch 09/23/17 09/24/17 09/24/17 23:55 04:00 04:00 WBC 37.8 H RBC 2.76 L Hgb 8.1 L Hct 24.8 L MCV MCH RDW 19.8 H Plt Count 539 H Lymph % (Auto) [place] % (Auto) [place] # Seg Neutrophils % Seg Neuts % (Manual) Lymphocytes % (Manual) 4.0 L Monocytes % (Manual) Nucleated RBC % 6.0 H Seg Neutrophils # Seg Neutrophils # Man 19.3 H Lymphocytes # (Manual) Monocytes # (Manual) 1.5 H Eosinophils # (Manual) Basophils # (Manual) 0.4 H PT INR POC ABG pH ABG pH POC ABG pCO2 POC ABG pO2 ABG pO2 ABG O2 Saturation ABG Base Excess ABG Hemoglobin Oxyhemoglobin Sodium Potassium 3.5 L Chloride 95.2 L Carbon Dioxide BUN 67 H Creatinine 1.9 H Glucose 140 H POC Glucose 120 H Calcium 8.2 L Phosphorus 2.00 L Magnesium Iron TIBC Ferritin Total Bilirubin AST ALT Alkaline Phosphatase Total Creatine Kinase Troponin T C-Reactive Protein Total Protein Albumin Triglycerides HDL Cholesterol Miscellaneous Test Crossmatch 09/24/17 09/24/17 09/24/17 04:00 05:33 12:16 WBC RBC Hgb Hct MCV MCH RDW Plt Count Lymph % (Auto) [place] % (Auto) [place] # Seg Neutrophils % Seg Neuts % (Manual) Lymphocytes % (Manual) Monocytes % (Manual) Nucleated RBC % Seg Neutrophils # Seg Neutrophils # Man Lymphocytes # (Manual) Monocytes # (Manual) Eosinophils # (Manual) Basophils # (Manual) PT INR POC ABG pH ABG pH POC ABG pCO2 POC ABG pO2 ABG pO2 ABG O2 Saturation ABG Base Excess ABG Hemoglobin Oxyhemoglobin Sodium Potassium Chloride Carbon Dioxide BUN Creatinine Glucose POC Glucose 178 H 262 H Calcium Phosphorus Magnesium Iron TIBC Ferritin Total Bilirubin AST ALT Alkaline Phosphatase Total Creatine Kinase Troponin T C-Reactive Protein Total Protein Albumin Triglycerides HDL Cholesterol Miscellaneous Test Crossmatch See Detail 09/24/17 09/24/17 09/25/17 17:51 23:33 06:03 WBC RBC Hgb Hct MCV MCH RDW Plt Count Lymph % (Auto) [place] % (Auto) [place] # Seg Neutrophils % Seg Neuts % (Manual) Lymphocytes % (Manual) Monocytes % (Manual) Nucleated RBC % Seg Neutrophils # Seg Neutrophils # Man Lymphocytes # (Manual) Monocytes # (Manual) Eosinophils # (Manual) Basophils # (Manual) PT INR POC ABG pH ABG pH POC ABG pCO2 POC ABG pO2 ABG pO2 ABG O2 Saturation ABG Base Excess ABG Hemoglobin Oxyhemoglobin Sodium Potassium Chloride Carbon Dioxide BUN Creatinine Glucose POC Glucose 166 H 142 H 173 H Calcium Phosphorus Magnesium Iron TIBC Ferritin Total Bilirubin AST ALT Alkaline Phosphatase Total Creatine Kinase Troponin T C-Reactive Protein Total Protein Albumin Triglycerides HDL Cholesterol Miscellaneous Test Crossmatch 09/25/17 09/25/17 07:49 07:49 WBC 59.6 H* RBC 2.63 L Hgb 7.7 L Hct 26.0 L MCV 99 H MCH RDW 21.8 H Plt Count Lymph % (Auto) [place] % (Auto) [place] # Seg Neutrophils % Seg Neuts % (Manual) Lymphocytes % (Manual) 2.0 L Monocytes % (Manual) Nucleated RBC % 8.0 H Seg Neutrophils # Seg Neutrophils # Man 41.7 H Lymphocytes # (Manual) Monocytes # (Manual) 1.2 H Eosinophils # (Manual) Basophils # (Manual) PT INR POC ABG pH ABG pH POC ABG pCO2 POC ABG pO2 ABG pO2 ABG O2 Saturation ABG Base Excess ABG Hemoglobin Oxyhemoglobin Sodium Potassium 5.3 H D Chloride 97.7 L Carbon Dioxide 19 L BUN 90 H Creatinine 2.5 H Glucose 181 H POC Glucose Calcium 8.0 L Phosphorus Magnesium Iron TIBC Ferritin Total Bilirubin AST ALT Alkaline Phosphatase Total Creatine Kinase Troponin T C-Reactive Protein Total Protein Albumin Triglycerides HDL Cholesterol Miscellaneous Test Crossmatch Chest x-ray: report reviewed, image reviewed
--- NOTE | 2017-09-25 14:21 | Progress Note ---
Assessment and Plan complicated patient with hx of several abdominal procedures this admission, starting with surgery for SBO and gastric perforation. POD #1 s/p exlap and repair of enterotomy and midline closure with biologic mesh due to dehiscence tachycardia improving but still requiring pressor support afebrile leukocytosis, very high, likely reactive in nature but will continue abx per ID will continue dressing changes and TPN for nutritional support. - Patient Problems (1) SBO (small bowel obstruction) Current Visit: Yes Status: Acute Subjective Date of service: 09/25/17 Patient Reports: Positive: other (pt non verbal on vent. over night no acute events, but has had to increase pressors since presently on dialysis. ) Objective Vital Signs - 12hr 09/25/17 09/25/17 09/25/17 02:30 02:45 03:00 Temperature Pulse Rate 110 H 109 H 109 H Pulse Rate [ Apical] Pulse Rate [ From Monitor] Respiratory 28 H 33 H 50 H Rate Respiratory Rate [ Generalized] Blood Pressure 90/52 90/52 96/54 O2 Sat by Pulse 99 99 Oximetry O2 Sat by Pulse Oximetry [ Anterior Bilateral Throughout] O2 Sat by Pulse Oximetry [ Assessment] 09/25/17 09/25/17 09/25/17 03:15 03:30 03:45 Temperature Pulse Rate 106 H 112 H 110 H Pulse Rate [ Apical] Pulse Rate [ From Monitor] Respiratory 52 H 51 H 55 H Rate Respiratory Rate [ Generalized] Blood Pressure 96/54 108/68 108/68 O2 Sat by Pulse 100 96 98 Oximetry O2 Sat by Pulse Oximetry [ Anterior Bilateral Throughout] O2 Sat by Pulse Oximetry [ Assessment] 09/25/17 09/25/17 09/25/17 04:00 04:46 05:01 Temperature 99.6 F Pulse Rate 109 H 108 H Pulse Rate [ 114 H Apical] Pulse Rate [ From Monitor] Respiratory 41 H 28 H Rate Respiratory Rate [ Generalized] Blood Pressure 111/53 107/56 107/56 O2 Sat by Pulse 96 Oximetry O2 Sat by Pulse Oximetry [ Anterior Bilateral Throughout] O2 Sat by Pulse Oximetry [ Assessment] 09/25/17 09/25/17 09/25/17 05:15 05:31 05:45 Temperature Pulse Rate 100 H 107 H 106 H Pulse Rate [ Apical] Pulse Rate [ From Monitor] Respiratory 34 H 30 H 28 H Rate Respiratory Rate [ Generalized] Blood Pressure 111/53 107/56 107/56 O2 Sat by Pulse Oximetry O2 Sat by Pulse Oximetry [ Anterior Bilateral Throughout] O2 Sat by Pulse Oximetry [ Assessment] 09/25/17 09/25/17 09/25/17 06:01 06:09 06:15 Temperature Pulse Rate 109 H 105 H Pulse Rate [ Apical] Pulse Rate [ From Monitor] Respiratory 28 H 26 H Rate Respiratory Rate [ Generalized] Blood Pressure 107/56 107/56 O2 Sat by Pulse 98 Oximetry O2 Sat by Pulse Oximetry [ Anterior Bilateral Throughout] O2 Sat by Pulse Oximetry [ Assessment] 09/25/17 09/25/17 09/25/17 06:30 06:45 07:01 Temperature Pulse Rate 105 H 102 H 97 H Pulse Rate [ Apical] Pulse Rate [ From Monitor] Respiratory 25 H 26 H 17 Rate Respiratory Rate [ Generalized] Blood Pressure 108/46 108/46 108/46 O2 Sat by Pulse 100 96 Oximetry O2 Sat by Pulse Oximetry [ Anterior Bilateral Throughout] O2 Sat by Pulse Oximetry [ Assessment] 09/25/17 09/25/17 09/25/17 07:15 07:30 07:45 Temperature Pulse Rate 102 H 103 H 106 H Pulse Rate [ Apical] Pulse Rate [ From Monitor] Respiratory 25 H 31 H 28 H Rate Respiratory Rate [ Generalized] Blood Pressure 118/53 129/66 129/66 O2 Sat by Pulse 100 98 97 Oximetry O2 Sat by Pulse Oximetry [ Anterior Bilateral Throughout] O2 Sat by Pulse Oximetry [ Assessment] 09/25/17 09/25/17 09/25/17 08:00 08:15 08:20 Temperature 97.5 F L Pulse Rate 105 H 103 H Pulse Rate [ Apical] Pulse Rate [ 105 H From Monitor] Respiratory 28 H 27 H Rate Respiratory Rate [ Generalized] Blood Pressure 105/62 105/62 O2 Sat by Pulse 66 L 99 Oximetry O2 Sat by Pulse Oximetry [ Anterior Bilateral Throughout] O2 Sat by Pulse 100 Oximetry [ Assessment] 09/25/17 09/25/17 09/25/17 08:30 08:45 09:00 Temperature Pulse Rate 103 H 104 H 101 H Pulse Rate [ Apical] Pulse Rate [ From Monitor] Respiratory 26 H 28 H 36 H Rate Respiratory Rate [ Generalized] Blood Pressure 118/64 118/64 116/65 O2 Sat by Pulse 100 100 100 Oximetry O2 Sat by Pulse Oximetry [ Anterior Bilateral Throughout] O2 Sat by Pulse Oximetry [ Assessment] 09/25/17 09/25/17 09/25/17 09:15 09:30 09:45 Temperature Pulse Rate 104 H 104 H 103 H Pulse Rate [ Apical] Pulse Rate [ From Monitor] Respiratory 27 H 28 H 25 H Rate Respiratory Rate [ Generalized] Blood Pressure 116/65 115/66 115/66 O2 Sat by Pulse 100 100 100 Oximetry O2 Sat by Pulse Oximetry [ Anterior Bilateral Throughout] O2 Sat by Pulse Oximetry [ Assessment] 09/25/17 09/25/17 09/25/17 10:00 10:15 10:30 Temperature Pulse Rate 103 H 100 H 107 H Pulse Rate [ Apical] Pulse Rate [ From Monitor] Respiratory 24 29 H 25 H Rate Respiratory 29 H Rate [ Generalized] Blood Pressure 125/56 115/66 132/65 O2 Sat by Pulse 100 100 100 Oximetry O2 Sat by Pulse Oximetry [ Anterior Bilateral Throughout] O2 Sat by Pulse Oximetry [ Assessment] 09/25/17 09/25/17 09/25/17 10:45 11:00 11:15 Temperature Pulse Rate 103 H 98 H 100 H Pulse Rate [ Apical] Pulse Rate [ From Monitor] Respiratory 22 26 H 26 H Rate Respiratory Rate [ Generalized] Blood Pressure 125/56 128/65 132/65 O2 Sat by Pulse 100 100 Oximetry O2 Sat by Pulse Oximetry [ Anterior Bilateral Throughout] O2 Sat by Pulse Oximetry [ Assessment] 09/25/17 09/25/17 09/25/17 11:20 11:30 11:35 Temperature 97.8 F Pulse Rate 101 H 102 H 101 H Pulse Rate [ Apical] Pulse Rate [ From Monitor] Respiratory 29 H 24 Rate Respiratory Rate [ Generalized] Blood Pressure 129/64 133/64 129/64 O2 Sat by Pulse 100 Oximetry O2 Sat by Pulse 100 Oximetry [ Anterior Bilateral Throughout] O2 Sat by Pulse Oximetry [ Assessment] 09/25/17 09/25/17 09/25/17 11:45 12:00 12:15 Temperature 97.8 F Pulse Rate 101 H 111 H 113 H Pulse Rate [ Apical] Pulse Rate [ 112 H From Monitor] Respiratory 30 H 29 H Rate Respiratory Rate [ Generalized] Blood Pressure 122/44 120/54 114/62 O2 Sat by Pulse 100 88 Oximetry O2 Sat by Pulse Oximetry [ Anterior Bilateral Throughout] O2 Sat by Pulse Oximetry [ Assessment] 09/25/17 09/25/17 09/25/17 12:30 12:35 12:45 Temperature Pulse Rate 113 H 110 H 109 H Pulse Rate [ Apical] Pulse Rate [ From Monitor] Respiratory Rate Respiratory Rate [ Generalized] Blood Pressure 77/58 85/55 100/50 O2 Sat by Pulse 100 Oximetry O2 Sat by Pulse Oximetry [ Anterior Bilateral Throughout] O2 Sat by Pulse Oximetry [ Assessment] 09/25/17 09/25/17 09/25/17 13:00 13:13 13:30 Temperature Pulse Rate 113 H 111 H 110 H Pulse Rate [ Apical] Pulse Rate [ From Monitor] Respiratory Rate Respiratory Rate [ Generalized] Blood Pressure 112/62 125/92 77/39 O2 Sat by Pulse Oximetry O2 Sat by Pulse Oximetry [ Anterior Bilateral Throughout] O2 Sat by Pulse Oximetry [ Assessment] 09/25/17 13:47 Temperature Pulse Rate 109 H Pulse Rate [ Apical] Pulse Rate [ From Monitor] Respiratory Rate Respiratory Rate [ Generalized] Blood Pressure 156/97 O2 Sat by Pulse Oximetry O2 Sat by Pulse Oximetry [ Anterior Bilateral Throughout] O2 Sat by Pulse Oximetry [ Assessment] - General physical appearance well developed, chronically ill, other (mild agonal breathing) - Respiratory normal expansion, other (mildly agonal) - Abdomen soft, other (MERVIN drains with sero-purulent fluid, ostomy bag with stool in place , midline dressing not taken down due to being on dialysis, G-tube with bilious drainage) - Labs 09/25/17 07:49 09/25/17 07:49 Diabetes panel 09/25/17 Range/Units 07:49 Sodium 137 (137-145) mmol/L Potassium 5.3 H D (3.6-5.0) mmol/L Chloride 97.7 L (98-107) mmol/L Carbon Dioxide 19 L (22-30) mmol/L BUN 90 H (7-17) mg/dL Creatinine 2.5 H (0.7-1.2) mg/dL Glucose 181 H (65-100) mg/dL Calcium 8.0 L (8.4-10.2) mg/dL Calcium panel 09/25/17 09/25/17 Range/Units 07:49 07:49 Calcium 8.0 L (8.4-10.2) mg/dL Phosphorus 3.80 D (2.5-4.5) mg/dL Pituitary panel 09/25/17 Range/Units 07:49 Sodium 137 (137-145) mmol/L Potassium 5.3 H D (3.6-5.0) mmol/L Chloride 97.7 L (98-107) mmol/L Carbon Dioxide 19 L (22-30) mmol/L BUN 90 H (7-17) mg/dL Creatinine 2.5 H (0.7-1.2) mg/dL Glucose 181 H (65-100) mg/dL Calcium 8.0 L (8.4-10.2) mg/dL Adrenal panel 09/25/17 Range/Units 07:49 Sodium 137 (137-145) mmol/L Potassium 5.3 H D (3.6-5.0) mmol/L Chloride 97.7 L (98-107) mmol/L Carbon Dioxide 19 L (22-30) mmol/L BUN 90 H (7-17) mg/dL Creatinine 2.5 H (0.7-1.2) mg/dL Glucose 181 H (65-100) mg/dL Calcium 8.0 L (8.4-10.2) mg/dL
[2017-09-25] MEDS: HEPARIN IV PRN (14:29)
[2017-09-25] MEDS: MERREM 1,000 MG in NACL 0.9% 100 ML IV SCH (14:56)
[2017-09-25] MEDS: LEVOPHED 8 MG in NACL 0.9% 250ML 242 ML IV SCH (16:46)
[2017-09-25] MEDS ORDERED: TPN ADULT 1,800 ML IV SCH (20:00)
[2017-09-25] MEDS ORDERED: INTRALIPID 20% 250 ML IV SCH (20:00)
[2017-09-25] MEDS: DILAUDID IV PRN (20:42)
[2017-09-26] MEDS: LEVOPHED 8 MG in NACL 0.9% 250ML 242 ML IV SCH ×2 (00:13→15:12)
[2017-09-26] MEDS: NOVOLOG SUB-Q SCH ×4 (00:14→18:07)
[2017-09-26 06:58] LABS: Hematocrit 21.4 % (30.3-42.9); Mean Corpuscular HGB Conc 33 % (30-34); Mean Corpuscular Hemoglobin 31 pg (28-32); Mean Corpuscular Volume 93 fl (79-97); Platelet Count 392 K/mm3 (140-440)
[2017-09-26 07:01] LABS: Calcium 8.1 mg/dL (8.4-10.2); Chloride 100.4 mmol/L (98-107); Magnesium 2.1 mg/dL (1.7-2.3); Phosphorous 3.7 mg/dL (2.5-4.5); Potassium 4.3 mmol/L (3.6-5.0)
[2017-09-26 07:09] LABS: Red Cell Distribution Width 21.3 % (13.2-15.2)
[2017-09-26 07:10] LABS: White Blood Count 61.9 K/mm3 (4.5-11.0)
[2017-09-26 08:18] LABS: Anisocytosis 1+; Basophils % (Manual) 0 % (0.0-1.8); Blastocytes % (Manual) 0 %; Elliptocytes Few; Eosinophils % (Manual) 0 % (0.0-4.3); Hypochromasia 1+; Ovalocytes 1+; Poikilocytosis 2+
[2017-09-26 08:19] LABS: Diff Status Complete; Polychromasia Few; Spherocytes Few; Tear Drop Cells Few
[2017-09-26] MEDS: MAXIPIME/NS 2 GM/100 ML 2 GM/100 ML BAG IV SCH (08:35)
--- NOTE | 2017-09-26 08:55 | Progress Note ---
Assessment and Plan - Patient Problems (1) ESRD (end stage renal disease) on dialysis Current Visit: Yes Status: Acute Plan to address problem: Continue HD on MWF and Isolated UF on TTS as tolerated. HD today. Patient is on TPN. Monitor lytes. D/w her daughter at the bedside. (2) Anemia Current Visit: No Status: Chronic Qualifiers: Anemia type: due to chronic kidney disease Iron deficiency anemia type: I Vitamin B12 deficiency anemia type: V Folate deficiency anemia type: F Bone marrow failure anemia type: B Hemolytic anemia type: H Other causes of anemia: O Chronic kidney disease stage: on chronic dialysis Qualified Code(s ): N18.6 - End stage renal disease; D63.1 - Anemia in chronic kidney disease; Z99.2 - Dependence on renal dialysis Plan to address problem: S/p multiple units of PRBC. Patient continues to drop Hb level. Epogen on dialysis days. Unable to give IV Iron due to high Ferritin level. (3) Hypotension Current Visit: Yes Status: Chronic Qualifiers: Hypotension type: H Trimester: T Plan to address problem: On Levophed. (4) Volume overload Current Visit: Yes Status: Acute Qualifiers: Hypervolemia type: H Plan to address problem: UF as tolerated. (5) Leukocytosis Current Visit: Yes Status: Acute Qualifiers: Leukocytosis type: unspecified Qualified Code(s): D72.829 - Elevated white blood cell count, unspecified (6) Acute respiratory failure with hypoxemia Current Visit: Yes Status: Acute Plan to address problem: On the vent. (7) Sepsis Current Visit: Yes Status: Acute Qualifiers: Sepsis type: S Subjective Date of service: 09/26/17 Principal diagnosis: respiratory failure, sepsis, shock rectal bleeding Interval history: Patient was seen and examined at the bedside. Remain on the vent. Objective - Vital Signs Vital signs: Vital Signs - 12hr 09/25/17 09/25/17 09/25/17 21:00 21:15 21:30 Temperature Pulse Rate 104 H 102 H 107 H Pulse Rate [ Apical] Pulse Rate [ From Monitor] Respiratory 22 18 22 Rate Blood Pressure 117/64 117/66 105/62 O2 Sat by Pulse 96 95 Oximetry O2 Sat by Pulse Oximetry [ Assessment] 09/25/17 09/25/17 09/25/17 21:45 22:00 22:15 Temperature Pulse Rate 104 H 103 H 103 H Pulse Rate [ Apical] Pulse Rate [ From Monitor] Respiratory 20 24 20 Rate Blood Pressure 105/62 108/57 108/57 O2 Sat by Pulse 98 97 99 Oximetry O2 Sat by Pulse Oximetry [ Assessment] 09/25/17 09/25/17 09/25/17 22:30 22:45 23:01 Temperature Pulse Rate 101 H 102 H 100 H Pulse Rate [ Apical] Pulse Rate [ From Monitor] Respiratory 22 24 24 Rate Blood Pressure 121/65 113/49 111/69 O2 Sat by Pulse 98 97 Oximetry O2 Sat by Pulse Oximetry [ Assessment] 09/25/17 09/25/17 09/25/17 23:11 23:15 23:31 Temperature Pulse Rate 99 H 102 H 98 H Pulse Rate [ Apical] Pulse Rate [ From Monitor] Respiratory 23 25 H 22 Rate Blood Pressure 111/69 111/69 120/45 O2 Sat by Pulse 99 98 96 Oximetry O2 Sat by Pulse Oximetry [ Assessment] 09/25/17 09/26/17 09/26/17 23:45 00:00 00:04 Temperature 98.9 F Pulse Rate 102 H 102 H 100 H Pulse Rate [ Apical] Pulse Rate [ From Monitor] Respiratory 24 22 Rate Blood Pressure 131/75 113/58 131/75 O2 Sat by Pulse 100 99 Oximetry O2 Sat by Pulse Oximetry [ Assessment] 09/26/17 09/26/17 09/26/17 00:15 00:30 00:45 Temperature Pulse Rate 99 H 95 H 104 H Pulse Rate [ 99 H Apical] Pulse Rate [ 99 H From Monitor] Respiratory 28 H 20 23 Rate Blood Pressure 114/78 126/53 119/53 O2 Sat by Pulse 100 99 100 Oximetry O2 Sat by Pulse Oximetry [ Assessment] 09/26/17 09/26/17 09/26/17 01:01 01:15 01:30 Temperature Pulse Rate 100 H 98 H 102 H Pulse Rate [ Apical] Pulse Rate [ From Monitor] Respiratory 26 H 25 H 19 Rate Blood Pressure 131/71 131/71 126/36 O2 Sat by Pulse 100 Oximetry O2 Sat by Pulse Oximetry [ Assessment] 09/26/17 09/26/17 09/26/17 01:31 01:45 02:00 Temperature Pulse Rate 102 H 107 H Pulse Rate [ Apical] Pulse Rate [ From Monitor] Respiratory 26 H 23 Rate Blood Pressure 110/58 103/52 O2 Sat by Pulse 100 Oximetry O2 Sat by Pulse 99 Oximetry [ Assessment] 09/26/17 09/26/17 09/26/17 02:15 02:30 02:45 Temperature Pulse Rate 100 H 106 H 100 H Pulse Rate [ Apical] Pulse Rate [ From Monitor] Respiratory 28 H 24 24 Rate Blood Pressure 103/52 123/57 125/40 O2 Sat by Pulse 100 Oximetry O2 Sat by Pulse Oximetry [ Assessment] 09/26/17 09/26/17 09/26/17 03:01 03:15 03:31 Temperature Pulse Rate 104 H 105 H 100 H Pulse Rate [ Apical] Pulse Rate [ From Monitor] Respiratory 26 H 25 H 24 Rate Blood Pressure 117/64 117/64 129/66 O2 Sat by Pulse 95 100 50 L Oximetry O2 Sat by Pulse Oximetry [ Assessment] 09/26/17 09/26/17 09/26/17 03:45 04:00 04:15 Temperature 98.6 F Pulse Rate 97 H 102 H 99 H Pulse Rate [ Apical] Pulse Rate [ From Monitor] Respiratory 20 22 26 H Rate Blood Pressure 121/42 107/57 107/57 O2 Sat by Pulse 99 100 Oximetry O2 Sat by Pulse Oximetry [ Assessment] 09/26/17 09/26/17 09/26/17 04:21 04:30 04:40 Temperature Pulse Rate 95 H 101 H Pulse Rate [ 101 H Apical] Pulse Rate [ 101 H From Monitor] Respiratory 25 H 25 H Rate Blood Pressure 107/57 113/49 O2 Sat by Pulse 100 98 100 Oximetry O2 Sat by Pulse Oximetry [ Assessment] 09/26/17 09/26/17 09/26/17 04:45 05:00 05:15 Temperature Pulse Rate 99 H 99 H 100 H Pulse Rate [ Apical] Pulse Rate [ From Monitor] Respiratory 24 22 22 Rate Blood Pressure 103/31 127/62 127/55 O2 Sat by Pulse 100 Oximetry O2 Sat by Pulse Oximetry [ Assessment] 09/26/17 09/26/17 09/26/17 05:30 05:45 06:00 Temperature Pulse Rate 101 H 102 H 103 H Pulse Rate [ Apical] Pulse Rate [ From Monitor] Respiratory 24 20 17 Rate Blood Pressure 129/105 129/105 111/62 O2 Sat by Pulse 100 100 100 Oximetry O2 Sat by Pulse Oximetry [ Assessment] 09/26/17 09/26/17 07:59 08:21 Temperature 98.1 F Pulse Rate 103 H Pulse Rate [ Apical] Pulse Rate [ From Monitor] Respiratory Rate Blood Pressure 99/46 O2 Sat by Pulse 100 Oximetry O2 Sat by Pulse Oximetry [ Assessment] - General Appearance General appearance: well-developed, appears stated age, obese, other (on vent, FiO2 25%, right IJ temp catheter) EENT: ATNC, PERRL Neck: supple Respiratory: Present: Clear to Ascultation Cardiology: regular, S1S2, no murmurs Gastrointestinal: other (ostomy, dressing, MERVIN drain noted) Integumentary: no rash Neurologic: other (alert, non-verbal, not following any command) Musculoskeletal: other (1to2+ edema) - Lab 09/27/17 04:00 09/27/17 04:00 Most recent lab results ABG pH 7.323 pH Units (7.350-7.450) L 09/09/17 Unknown ABG pCO2 41.1 mm Hg 09/09/17 Unknown ABG pO2 94.1 mm Hg (80.0-90.0) H 09/09/17 Unknown ABG HCO3 20.9 mmol/L (20.0-26.0) 09/09/17 Unknown ABG O2 Saturation 97.2 % (95.0-99.0) 09/09/17 Unknown Calcium 8.1 mg/dL (8.4-10.2) L 09/26/17 05:25 Phosphorus 3.70 mg/dL (2.5-4.5) 09/26/17 05:25 Magnesium 2.10 mg/dL (1.7-2.3) 09/26/17 05:25
[2017-09-26] MEDS: DILAUDID IV PRN ×3 (09:20→18:09)
[2017-09-26] MEDS ORDERED: NACL 0.9% IR ONE (09:30)
[2017-09-26] MEDS: MERREM 1,000 MG in NACL 0.9% 100 ML IV SCH (10:19)
--- NOTE | 2017-09-26 10:20 | Event Note ---
Date: 09/26/17 Pt seen and examined this am for Dr. Chamorro. No overnight events per nursing. The patient is more alert and opens eyes to name and responds to pain. Pressor requirements are decreased. Afebrile overnight. Abdomen examined. Dressing taken down and there is a small amount of stool leaking from the ostomy towards the midline wound and staining part of the packing. MERVIN drains with minimal output, LLQ drain slightly seropurulent, LUQ drain serosanguenous. G tube to OSD with yellow output. The patient was premedicated and all of the dressing was removed including one piece of kerlex packing in its entirety. The colostomy appliance was taken down and skin cleansed. The midline wound was examined carefully and fascia is intact with serous drainage in the wound. No purulence. No foul smell. All other wounds are stable. Retention sutures intact. Midline wound was repacked with one piece of saline moistened kerlex. Wound covered with 4x4 gauze and coversites. Ostomy paste applied to skin adjacent to midline wound. New Ostomy appliance cut to size and applied. The patient tolerated the dressing change well. Dr. Chamorro notified.
[2017-09-26] MEDS: PROTONIX IV SCH (10:21)
[2017-09-26] MEDS: LEVEMIR SUB-Q SCH (10:22)
[2017-09-26] MEDS: DIFLUCAN 200 MG/100 ML BAG IV SCH (11:30)
--- NOTE | 2017-09-26 11:48 | Progress Note ---
Assessment and Plan Assessment and plan: Septic shock. Patient with previous abdominal abscess and CAUTI. ID following. Cont. meropenem and fluconazole (previous agents - meropenem/ micafungin for Presumed Surgical wound infection / dehiscence ? wound + MRSA, E faecalis and Kristine albicans) Pt. may now have ? colonic perf ? leak. Worsening leukocytosis Acute hypoxic respiratory failure. Patient remains on mechanical ventilation postoperatively. Continue weaning per pulmonary MRSA in tracheal aspirate ? colonizer versus VAP Peritonitis/intra-abdominal abscess/ Initial Bowel obstruction (related to likely gastric perforation). 09/24/17: ex lap with abdominal washout and placement of biologic mesh and proximal aspect of midline wound, closure of enterotomy 09/15/17: Ex lap, transverse colectomy, R colostomy and abdominal wash out 08/31: Ex lap with abdominal wash out and closure 08/17: Ex lap with G tube placement, EGD, abdominal wash out and removal of PD Cath (OR findings - bowel obstruction due to entanglement of PD cath, abscess cavity in LUQ and ? suspect perforation of unclear location) Cont. TPN End-stage renal disease -patient previously with peritoneal dialysis that has been discontinued -Hemodialysis per nephrology. -needs perm cath when improved Anemia -etiology, likely secondary to blood loss anemia. Consider PRBCs with Hemodialysis. No active bleeding Ulcerative esophagitis/small gastric ulcer. Patient status post EGD. s/p multiple transfusions -Patient had CTA of abdomen and pelvis that revealed no active bleeding, CT Abdomen repeated 09/06, no acute findings CAUTI. Completed antibiotics Protein calorie malnutrition. -Continue TPN. Leukocytosis. -worse- -ID following -Follow up CBC Recent pancreatitis. resolved Penicillin allergy-has taken keflex w/o problems in past NSVT cardiology believes that etiology was secondary to Levophed which now has been weaned off History of cervical surgery and postoperative wheelchair bound since then - pain control DVT prophylaxis Disposition - Prognosis is extremely guarded. The high probability of a clinically significant, sudden or life threatening deterioration of the [hemodynamic, respiratory] system(s) required my full and direct attention, intervention and personal management. The aggregate critical care time was [32] minutes. This time is in addition to time spent performing reported procedures but includes the following: [x] Data Review and interpretation [x] Patient assessment and monitoring of vital signs [x] Documentation [x] Medication orders and management History Interval history: Patient still remains critically ill requiring pressors on [facility] vent Hospitalist Physical - Constitutional Vitals: Temp Pulse Resp BP Pulse Ox 98.1 F 98 H 23 97/64 100 09/26/17 07:59 09/26/17 10:00 09/26/17 10:00 09/26/17 10:00 09/26/17 10:00 General appearance: Present: mild distress - EENT Eyes: Present: PERRL, EOM intact ENT: hearing intact, clear oral mucosa, dentition normal - Neck Neck: Present: supple, normal ROM - Respiratory Respiratory effort: normal Respiratory: bilateral: CTA - Cardiovascular Rhythm: regular Heart Sounds: Present: S1 & S2. Absent: gallop, rub - Extremities Extremities: no ischemia, No edema, Full ROM - Abdominal General gastrointestinal: soft, non-tender, non-distended, normal bowel sounds - Integumentary Integumentary: Present: clear, warm, dry - Neurologic Neurologic: CNII-XII intact, moves all extremities Results - Labs CBC & Chem 7: 09/26/17 05:25 09/26/17 05:25 Labs: Laboratory Last Values WBC 61.9 K/mm3 (4.5-11.0) H* 09/26/17 05:25 RBC 2.30 M/mm3 (3.65-5.03) L 09/26/17 05:25 Hgb 7.0 gm/dl (10.1-14.3) L 09/26/17 05:25 Hct 21.4 % (30.3-42.9) L 09/26/17 05:25 MCV 93 fl (79-97) 09/26/17 05:25 MCH 31 pg (28-32) 09/26/17 05:25 MCHC 33 % (30-34) 09/26/17 05:25 RDW 21.3 % (13.2-15.2) H 09/26/17 05:25 Plt Count 392 K/mm3 (140-440) 09/26/17 05:25 Lymph % (Auto) Business Operations Specialist 08/19/17 07:37 Zavala % (Auto) Business Operations Specialist 09/24/17 04:00 Eos % (Auto) Business Operations Specialist 08/19/17 07:37 Baso % (Auto) Business Operations Specialist 08/19/17 07:37 Lymph # Business Operations Specialist 09/26/17 05:25 Zavala # Business Operations Specialist 08/19/17 07:37 Eos # Business Operations Specialist 08/19/17 07:37 Baso # Business Operations Specialist 08/19/17 07:37 Add Manual Diff Complete 09/26/17 05:25 Total Counted 100 09/26/17 05:25 Seg Neutrophils % Business Operations Specialist 09/08/17 04:05 Seg Neuts % (Manual) 60.0 % (40.0-70.0) 09/26/17 05:25 Band Neutrophils % 16.0 % 09/26/17 05:25 Lymphocytes % (Manual) 1.0 % (13.4-35.0) L 09/26/17 05:25 Reactive Lymphs % (Man) 0 % 09/26/17 05:25 Monocytes % (Manual) 3.0 % (0.0-7.3) 09/26/17 05:25 Eosinophils % (Manual) 0 % (0.0-4.3) 09/26/17 05:25 Basophils % (Manual) 0 % (0.0-1.8) 09/26/17 05:25 Metamyelocytes % 12.0 % 09/26/17 05:25 Myelocytes % 7.0 % 09/26/17 05:25 Promyelocytes % 1.0 % 09/26/17 05:25 Blast Cells % 0 % 09/26/17 05:25 Nucleated RBC % 7.0 % (0.0-0.9) H 09/26/17 05:25 Seg Neutrophils # Business Operations Specialist 08/19/17 07:37 Seg Neutrophils # Man 37.1 K/mm3 (1.8-7.7) H 09/26/17 05:25 Band Neutrophils # 9.9 K/mm3 09/26/17 05:25 Lymphocytes # (Manual) 0.6 K/mm3 (1.2-5.4) L 09/26/17 05:25 Abs React Lymphs (Man) 0.0 K/mm3 09/26/17 05:25 Monocytes # (Manual) 1.9 K/mm3 (0.0-0.8) H 09/26/17 05:25 Eosinophils # (Manual) 0.0 K/mm3 (0.0-0.4) 09/26/17 05:25 Basophils # (Manual) 0.0 K/mm3 (0.0-0.1) 09/26/17 05:25 Metamyelocytes # 7.4 K/mm3 09/26/17 05:25 Myelocytes # 4.3 K/mm3 09/26/17 05:25 Promyelocytes # 0.6 K/mm3 09/26/17 05:25 Blast Cells # 0.0 K/mm3 09/26/17 05:25 Pathologist Review Not Reportable 08/30/17 05:20 WBC Morphology Not Reportable 09/26/17 05:25 Hypersegmented Neuts Not Reportable 09/26/17 05:25 Hyposegmented Neuts Not Reportable 09/26/17 05:25 Hypogranular Neuts Not Reportable 09/26/17 05:25 Smudge Cells Not Reportable 09/26/17 05:25 Toxic Granulation Not Reportable 09/26/17 05:25 Toxic Vacuolation Not Reportable 09/26/17 05:25 Dohle Bodies Not Reportable 09/26/17 05:25 Pelger-Huet Anomaly Not Reportable 09/26/17 05:25 Ariel Rods Not Reportable 09/26/17 05:25 Platelet Estimate Appears normal 09/26/17 05:25 Clumped Platelets Not Reportable 09/26/17 05:25 Plt Clumps, EDTA Not Reportable 09/26/17 05:25 Large Platelets Not Reportable 09/26/17 05:25 Giant Platelets Not Reportable 09/26/17 05:25 Platelet Satelliting Not Reportable 09/26/17 05:25 Plt Morphology Comment Not Reportable 09/26/17 05:25 RBC Morphology Not Reportable 09/26/17 05:25 Dimorphic RBCs Not Reportable 09/26/17 05:25 Polychromasia Few 09/26/17 05:25 Hypochromasia 1+ 09/26/17 05:25 Poikilocytosis 2+ 09/26/17 05:25 Anisocytosis 1+ 09/26/17 05:25 Microcytosis Not Reportable 09/26/17 05:25 Macrocytosis Not Reportable 09/26/17 05:25 Spherocytes Few 09/26/17 05:25 Pappenheimer Bodies Not Reportable 09/26/17 05:25 Sickle Cells Not Reportable 09/26/17 05:25 Target Cells Not Reportable 09/26/17 05:25 Tear Drop Cells Few 09/26/17 05:25 Ovalocytes 1+ 09/26/17 05:25 Stomatocytes Rare 09/12/17 05:25 Helmet Cells Not Reportable 09/26/17 05:25 Vera-Rowan Bodies Not Reportable 09/26/17 05:25 [place] Rings Not Reportable 09/26/17 05:25 [place] Cells Not Reportable 09/26/17 05:25 Bite Cells Not Reportable 09/26/17 05:25 Crenated Cell Not Reportable 09/26/17 05:25 Elliptocytes Few 09/26/17 05:25 Acanthocytes (Spur) Not Reportable 09/26/17 05:25 Rouleaux Not Reportable 09/26/17 05:25 Hemoglobin C Crystals Not Reportable 09/26/17 05:25 Schistocytes Not Reportable 09/26/17 05:25 Malaria parasites Not Reportable 09/26/17 05:25 Jovanni Bodies Not Reportable 09/26/17 05:25 Hem Pathologist Commnt No 09/26/17 05:25 PT 14.9 Sec. (12.2-14.9) 09/21/17 07:00 INR 1.11 (0.87-1.13) 09/21/17 07:00 APTT 28.7 Sec. (24.2-36.6) 08/31/17 18:15 POC ABG pH 7.347 (7.35-7.45) L 09/13/17 11:36 ABG pH 7.323 pH Units (7.350-7.450) L 09/09/17 Unknown POC ABG pCO2 34.3 (35-45) L 09/13/17 11:36 ABG pCO2 41.1 mm Hg 09/09/17 Unknown POC ABG pO2 134 (80-105) H 09/13/17 11:36 ABG pO2 94.1 mm Hg (80.0-90.0) H 09/09/17 Unknown POC ABG HCO3 18.8 09/13/17 11:36 ABG HCO3 20.9 mmol/L (20.0-26.0) 09/09/17 Unknown POC ABG Total CO2 20 09/13/17 11:36 POC ABG O2 Sat 99 09/13/17 11:36 ABG O2 Saturation 97.2 % (95.0-99.0) 09/09/17 Unknown ABG O2 Content 10.9 (0.0-44) 09/09/17 Unknown POC ABG Base Excess -7 09/13/17 11:36 ABG Base Excess -4.8 mmol/L (-2.0-3.0) L 09/09/17 Unknown ABG Hemoglobin 8.0 gm/dl (12.0-16.0) L 09/09/17 Unknown ABG Carboxyhemoglobin 2.0 % (0.0-5.0) 09/09/17 Unknown ABG Methemoglobin 0.3 % (0.0-1.5) 09/09/17 Unknown VBG pH 7.462 (7.320-7.420) H 08/08/17 14:52 Oxyhemoglobin 94.9 % (95.0-99.0) L 09/09/17 Unknown FiO2 30 % 09/13/17 11:36 Sodium 141 mmol/L (137-145) 09/26/17 05:25 Potassium 4.3 mmol/L (3.6-5.0) 09/26/17 05:25 Chloride 100.4 mmol/L (98-107) 09/26/17 05:25 Carbon Dioxide 21 mmol/L (22-30) L 09/26/17 05:25 Anion Gap 24 mmol/L 09/26/17 05:25 BUN 81 mg/dL (7-17) H 09/26/17 05:25 Creatinine 2.3 mg/dL (0.7-1.2) H 09/26/17 05:25 Estimated GFR 26 ml/min 09/26/17 05:25 BUN/Creatinine Ratio 35 % 09/26/17 05:25 Glucose 178 mg/dL (65-100) H 09/26/17 05:25 POC Glucose 246 (70-105) H 09/26/17 11:33 Lactic Acid 1.60 mmol/L (0.7-2.0) 08/17/17 11:20 Calcium 8.1 mg/dL (8.4-10.2) L 09/26/17 05:25 Phosphorus 3.70 mg/dL (2.5-4.5) 09/26/17 05:25 Magnesium 2.10 mg/dL (1.7-2.3) 09/26/17 05:25 Iron 22 ug/dL (37-170) L 09/12/17 05:25 TIBC 81 mcg/dL (250-450) L 09/12/17 05:25 Ferritin > 2000.0 ng/mL (13.0-400.0) H 09/12/17 05:25 Total Bilirubin 0.70 mg/dL (0.1-1.2) 09/22/17 03:37 Direct Bilirubin 0.2 mg/dL (0-0.2) 08/08/17 14:11 Indirect Bilirubin 0.3 mg/dL 08/08/17 14:11 AST 33 units/L (5-40) 09/22/17 03:37 ALT 16 units/L (7-56) 09/22/17 03:37 Alkaline Phosphatase 311 units/L (35-129) H 09/22/17 03:37 Ammonia 25.0 umol/L (25-60) 08/08/17 14:52 Total Creatine Kinase 20 units/L (30-135) L 09/16/17 05:30 Troponin T 0.132 ng/mL (0.00-0.029) H* 08/09/17 13:25 C-Reactive Protein 2.80 mg/dL (0.00-1.30) H 09/06/17 05:30 NT-Pro-B Natriuret Pep 6156 pg/mL (0-900) H 08/08/17 14:11 Total Protein 4.4 g/dL (6.3-8.2) L 09/22/17 03:37 Albumin 2.0 g/dL (3.9-5) L 09/22/17 03:37 Albumin/Globulin Ratio 0.8 % 09/22/17 03:37 Triglycerides 180 mg/dL (2-149) H 09/03/17 04:00 Cholesterol 91 mg/dL (50-199) 08/08/17 21:23 LDL Cholesterol Direct 53 mg/dL (50-130) 08/08/17 21:23 HDL Cholesterol 26 mg/dL (40-59) L 08/08/17 21:23 Cholesterol/HDL Ratio 3.50 % 08/08/17 21:23 Amylase 45 units/L (27-131) 08/16/17 09:50 Lipase 34 units/L (13-60) 08/16/17 09:50 TSH 6.580 mlU/mL (0.270-4.200) H 08/08/17 14:22 Free T4 1.46 ng/dL (0.76-1.46) 08/08/17 14:22 Total Cortisol 28.3 mcg/dL () 09/13/17 12:50 Urine Color Yellow (Yellow) 08/08/17 20:15 Urine Turbidity Turbid (Clear) 08/08/17 20:15 Urine pH 8.0 (5.0-7.0) H 08/08/17 20:15 Ur Specific [place] 1.015 (1.003-1.030) 08/08/17 20:15 Urine Protein 100 mg/dl mg/dL (Negative) 08/08/17 20:15 Urine Glucose (UA) Neg mg/dL (Negative) 08/08/17 20:15 Urine Ketones Neg mg/dL (Negative) 08/08/17 20:15 Urine Blood Mod (Negative) 08/08/17 20:15 Urine Nitrite Neg (Negative) 08/08/17 20:15 Urine Bilirubin Neg (Negative) 08/08/17 20:15 Urine Urobilinogen < 2.0 mg/dL (<2.0) 08/08/17 20:15 Ur Leukocyte Esterase Lg (Negative) 08/08/17 20:15 Urine WBC (Auto) 24.0 /HPF (0.0-6.0) H 08/08/17 20:15 Urine RBC (Auto) 3.0 /HPF (0.0-6.0) 08/08/17 20:15 U Epithel Cells (Auto) 3.0 /HPF (0-13.0) 08/08/17 20:15 Urine Bacteria (Auto) 4+ /HPF (Negative) 08/08/17 20:15 Urine Mucus 3+ /HPF 08/08/17 20:15 Fluid Type Peritoneal 08/08/17 18:18 Fluid Color Straw 08/08/17 18:18 Fluid Appearance Clear 08/08/17 18:18 Fluid pH 7.74 08/08/17 18:18 Fluid WBC 4 /mm3 08/08/17 18:18 Fluid RBC 1 /mm3 08/08/17 18:18 Fluid Seg Neutrophils 12 % 08/08/17 18:18 Fluid Lymphocytes 0 % 08/08/17 18:18 Fluid Reactive Lymphs 0 % 08/08/17 18:18 Fluid Monocytes 1 % 08/08/17 18:18 Fluid Eosinophils 0 % 08/08/17 18:18 Fluid Basophils 0 % 08/08/17 18:18 Fluid Glucose 315 mg/dL (40-70) H 08/08/17 18:18 Random Vancomycin 19.5 ug/mL (0-40.0) 08/22/17 03:40 Hep Bs Antigen Non-reactive (Negative) 08/22/17 03:40 Hepatitis C Antibody Non-reactive (NonReactive) 08/22/17 03:40 Miscellaneous Test Flexitest 1 H 09/06/17 09:57 Blood Type O POSITIVE 09/24/17 04:00 Antibody Screen Negative 09/24/17 04:00 VAN Antibody Screen Negative 09/07/17 17:07 Crossmatch See Detail 09/24/17 04:00
--- NOTE | 2017-09-26 11:56 | Progress Note ---
Assessment and Plan Assessment: 1) Sepsis with septic shock: worsening leukocytosis (after OR), decreased pressors requirement; ? colonic perf ? leak. Restared on IV solumedrol 09/13 2) Initial Bowel obstruction / suspect ?gastric perforation ? peritonitis -S/P Exlap, G-tube placement, EGD, abdominal washout and removal of PD -OR findings - bowel obstruction due to entanglement of PD cath, abscess cavity in LUQ and ? suspect perforation of unclear location 3) Intiial CA-UTI: chronic iavn exchanged every 4 weeks and ureteral stents in place which are exchanged every 6 months 4) Paraplegia 5) ESRD on PD - now on HD 6) Recent pancreatitis 7) Penicillin allergy-has taken keflex w/o problems 8) Presumed Surgical wound infection / dehiscence ? 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 11) Anemia- severe- Hg 6.7 today 12) Colonic perforation -S/P exlap, transverse colectomy, right sided colostomy and wash out on 09/15 -?presumed leak -surgical wound + Kristine and MDR Acinetobacter 13) Small bowell enterotomy leak / peritonitis s/p wash out / biologic mesh placement / closure of small bowel enterotomy on 09/24 Plan: -continue meropenem and fluconazole -contact isolation Thank you Dr Chen for your consultation, will follow up with you. Ramya Lang MD Infectious Diseases Specialist [facility] ([facility] M [phone] O [phone] Subjective Date of service: 09/26/17 Principal diagnosis: respiratory failure, sepsis, shock rectal bleeding Interval history: Pt remains on the vent still levophed at 8 mcg on TPN, fentanyl, no fever. Microbiology: Blood cultures: 08/08 neg 08/12 neg 08/16 neg 08/20 neg 08/29 neg 09/06 neg 09/12 ngtd Urine cultures: 08/08 10-100K skin grace Respiratory cultures: 08/30 tracheal asp MRSA Wound cultures: 08/26 Staph aureus and Kristine 08/28 MRSA, E faecalis, Kristine albicans 09/20 MDR Acinetobacter and Kristine albicans Stool cultures: Other: 08/08 peritoneal fluid + SINK MAKER/Diphteroids Current Antimicrobials: meropenem 09/25 fluconazole 09/24 Previous Antimicrobials: 08/10 levaquin 08/16 vancomycin 08/13 meropenem 08/16 fluconazole Micafungin 08/29 meropenem 08/29 zyvox 09/03 fluconazole 09/03 dapto 09/10 meropenem 09/09-09/22 micafungin 09/11-09/21 Objective - Exam Narrative Exam: General appearance: alert this am on vent via trach Eyes: anicteric sclerae, moist conjunctivae; no lid-lag; PERRLA HENT: Atraumatic; NGT Neck: Trach in place Lungs: coarse BS moreno CV: RRR Abdomen: soft, midline surgical wound + ostomy. MERVIN drains with minimal output, LLQ drain slightly seropurulent, LUQ drain serosanguenous. G tube to OSD with yellow output per surgical eval. Extremities: + peripheral edema + leg ulcer no drainage Skin: right groin old fem line wound no erythema, no drainage Psych: sedated. Neuro: sedated Lines: right IJ vas cath / Right IJ Nair 08/16 - Constitutional Vitals: Vital Signs Temp Pulse Resp BP Pulse Ox 98.3 F 98 H 23 97/64 100 09/26/17 11:44 09/26/17 10:00 09/26/17 10:00 09/26/17 10:00 09/26/17 10:00 Temperature -Last 24 Hours Temperature 98.3 F Temperature 98.1 F Temperature 98.6 F Temperature 98.9 F Temperature 98.0 F Temperature 97.5 F Temperature 97.8 F Temperature 97.8 F - Labs CBC & Chem 7: 09/26/17 05:25 09/26/17 05:25 Labs: Abnormal lab results 09/25/17 09/25/17 09/25/17 Range/Units 11:36 16:11 23:38 WBC (4.5-11.0) K/mm3 RBC (3.65-5.03) M/mm3 Hgb (10.1-14.3) gm/dl Hct (30.3-42.9) % RDW (13.2-15.2) % Lymphocytes % (Manual) (13.4-35.0) % Nucleated RBC % (0.0-0.9) % Seg Neutrophils # Man (1.8-7.7) K/mm3 Lymphocytes # (Manual) (1.2-5.4) K/mm3 Monocytes # (Manual) (0.0-0.8) K/mm3 Carbon Dioxide (22-30) mmol/L BUN (7-17) mg/dL Creatinine (0.7-1.2) mg/dL Glucose (65-100) mg/dL POC Glucose 308 H 249 H 263 H (70-105) Calcium (8.4-10.2) mg/dL 09/26/17 09/26/17 09/26/17 Range/Units 05:25 05:25 05:32 WBC 61.9 H* (4.5-11.0) K/mm3 RBC 2.30 L (3.65-5.03) M/mm3 Hgb 7.0 L (10.1-14.3) gm/dl Hct 21.4 L (30.3-42.9) % RDW 21.3 H (13.2-15.2) % Lymphocytes % (Manual) 1.0 L (13.4-35.0) % Nucleated RBC % 7.0 H (0.0-0.9) % Seg Neutrophils # Man 37.1 H (1.8-7.7) K/mm3 Lymphocytes # (Manual) 0.6 L (1.2-5.4) K/mm3 Monocytes # (Manual) 1.9 H (0.0-0.8) K/mm3 Carbon Dioxide 21 L (22-30) mmol/L BUN 81 H (7-17) mg/dL Creatinine 2.3 H (0.7-1.2) mg/dL Glucose 178 H (65-100) mg/dL POC Glucose 225 H (70-105) Calcium 8.1 L (8.4-10.2) mg/dL 09/26/17 Range/Units 11:33 WBC (4.5-11.0) K/mm3 RBC (3.65-5.03) M/mm3 Hgb (10.1-14.3) gm/dl Hct (30.3-42.9) % RDW (13.2-15.2) % Lymphocytes % (Manual) (13.4-35.0) % Nucleated RBC % (0.0-0.9) % Seg Neutrophils # Man (1.8-7.7) K/mm3 Lymphocytes # (Manual) (1.2-5.4) K/mm3 Monocytes # (Manual) (0.0-0.8) K/mm3 Carbon Dioxide (22-30) mmol/L BUN (7-17) mg/dL Creatinine (0.7-1.2) mg/dL Glucose (65-100) mg/dL POC Glucose 246 H (70-105) Calcium (8.4-10.2) mg/dL
--- NOTE | 2017-09-26 14:49 | Progress Note ---
Assessment and Plan Imp: 1. Acute bacterial peritonitis/abscess s/p PD cath removal and multiple exlaps 2. s/p SBO 3. Acute respiratory failure, hypoxia 4. Morbid obesity, excess cals. 5. ESRD 6. Sepsis -> now SIRS 7. s/p LGIB Rec: 1. Levophed not any worse; believe worsening clinical status was primarily due to sepsis/anastomotic leak, and less likely adrenal insufficiency; patient not healing her wounds including her bowel; recommend continue to remain off steroids unless absolutely necessary; has leukemoid reaction likely due to stress/sepsis 2. Monitor volume status with TPN; remove volume as able with HD 3. Cont. ventilator -> failed PSV today 4. Monitor H/H and for recurrent bleeding; consider more PRBCs for BP support 5. Levophed if necessary to keep MAP > 65 6. Not a candidate for chemical DVT PPx at this point, yet high risk for DVT; foot pumps in place now 7. ABX per ID 8. Prognosis remains poor; no family present today; will need LTAC when abdominal issues stable Complex decision-making Subjective Date of service: 09/26/17 Principal diagnosis: respiratory failure, sepsis, shock rectal bleeding Interval history: Awake, alert. No complaints although tachypeic on PRVC. On HD, back on Levophed weaned down to 8mcg. Had another exlap with washout and SB enterotomy repair. Active Medications Albuterol (Proventil) 2.5 mg IH Q4HRT PRN PRN Reason: Shortness Of Breath Last Admin: 08/24/17 21:49 Dose: 2.5 mg Dextrose (D50w (25gm) Vial) 50 gm IV PRN PRN PRN Reason: Hypoglycemia Last Admin: 09/15/17 23:57 Dose: 50 gm Heparin Sodium (Porcine) (Heparin 10,000 Units/10 Ml) 2,000 unit IV ISIAH PRN PRN Reason: hemodialysis Last Admin: 09/23/17 14:20 Dose: 2,000 unit Heparin Sodium (Porcine) (Heparin) 5,000 unit IV ISIAH PRN PRN Reason: hemodialysis Last Admin: 09/25/17 14:29 Dose: 5,000 unit Hydromorphone HCl (Dilaudid) 1 mg IV Q4H PRN PRN Reason: Pain , Severe (7-10) Last Admin: 09/26/17 13:57 Dose: 1 mg Hydrophilic Ointment (Vaseline Lip Therapy) 1 applic TP DIRECT PRN PRN Reason: DRY LIPS Last Admin: 09/14/17 11:55 Dose: 1 applic Sodium Chloride (Nacl 0.9%) 100 mls @ 999 mls/hr IV ISIAH PRN PRN Reason: Hypotension Norepinephrine 8 mg/ Sodium (Chloride) 250 mls @ 3.75 mls/hr IV TITR GLORIA; 2 MCG /MIN PRN Reason: Protocol Last Titration: 09/26/17 08:00 Dose: 8 mcg/min, 15 mls/hr Fluconazole (Diflucan) 200 mg in 100 mls @ 100 mls/hr IV Q24HR GLORIA PRN Reason: Protocol Last Admin: 09/26/17 11:30 Dose: 100 mls/hr Sodium Chloride (Nacl 0.9%) 100 mls @ 999 mls/hr IV ISIAH PRN PRN Reason: Hypotension Meropenem 1,000 mg/ Sodium (Chloride) 100 mls @ 100 mls/hr IV Q24HR GLORIA PRN Reason: Protocol Last Admin: 09/26/17 10:19 Dose: 100 mls/hr Amino Acids/Electrolytes/Dextrose (Tpn Adult) 1,800 mls @ 75 mls/hr IV DAILY@ 2000 GLORIA PRN Reason: Protocol Stop: 09/26/17 19:59 Last Admin: 09/25/17 20:35 Dose: 75 mls/hr Amino Acids/Electrolytes/Dextrose (Tpn Adult) 1,800 mls @ 75 mls/hr IV DAILY@ 2000 GLORIA PRN Reason: Protocol Stop: 09/27/17 19:59 Insulin Aspart (Novolog) 0 units SUB-Q Q6HR GLORIA PRN Reason: Protocol Last Admin: 09/26/17 13:01 Dose: 4 units Insulin Detemir (Levemir) 45 units SUB-Q DAILY GLORIA Last Admin: 09/26/17 10:22 Dose: 45 units Lorazepam (Ativan) 2 mg IV Q6H PRN PRN Reason: Agitation Last Admin: 09/17/17 10:31 Dose: 2 mg Pantoprazole Sodium (Protonix) 40 mg IV QDAY [facility] Last Admin: 09/26/17 10:21 Dose: 40 mg Objective Vital Signs - 12hr 09/26/17 09/26/17 09/26/17 03:01 03:15 03:31 Temperature Pulse Rate 104 H 105 H 100 H Pulse Rate [ Apical] Pulse Rate [ From Monitor] Respiratory 26 H 25 H 24 Rate Respiratory Rate [ Generalized] Blood Pressure 117/64 117/64 129/66 O2 Sat by Pulse 95 100 50 L Oximetry O2 Sat by Pulse Oximetry [ Assessment] 09/26/17 09/26/17 09/26/17 03:45 04:00 04:15 Temperature 98.6 F Pulse Rate 97 H 102 H 99 H Pulse Rate [ Apical] Pulse Rate [ From Monitor] Respiratory 20 22 26 H Rate Respiratory Rate [ Generalized] Blood Pressure 121/42 107/57 107/57 O2 Sat by Pulse 99 100 Oximetry O2 Sat by Pulse Oximetry [ Assessment] 09/26/17 09/26/17 09/26/17 04:21 04:30 04:40 Temperature Pulse Rate 95 H 101 H Pulse Rate [ 101 H Apical] Pulse Rate [ 101 H From Monitor] Respiratory 25 H 25 H Rate Respiratory Rate [ Generalized] Blood Pressure 107/57 113/49 O2 Sat by Pulse 100 98 100 Oximetry O2 Sat by Pulse Oximetry [ Assessment] 09/26/17 09/26/17 09/26/17 04:45 05:00 05:15 Temperature Pulse Rate 99 H 99 H 100 H Pulse Rate [ Apical] Pulse Rate [ From Monitor] Respiratory 24 22 22 Rate Respiratory Rate [ Generalized] Blood Pressure 103/31 127/62 127/55 O2 Sat by Pulse 100 Oximetry O2 Sat by Pulse Oximetry [ Assessment] 09/26/17 09/26/17 09/26/17 05:30 05:45 06:00 Temperature Pulse Rate 101 H 102 H 103 H Pulse Rate [ Apical] Pulse Rate [ From Monitor] Respiratory 24 20 17 Rate Respiratory Rate [ Generalized] Blood Pressure 129/105 129/105 111/62 O2 Sat by Pulse 100 100 100 Oximetry O2 Sat by Pulse Oximetry [ Assessment] 09/26/17 09/26/17 09/26/17 06:15 06:30 06:45 Temperature Pulse Rate 99 H 103 H 102 H Pulse Rate [ Apical] Pulse Rate [ From Monitor] Respiratory 25 H 24 26 H Rate Respiratory Rate [ Generalized] Blood Pressure 113/85 118/49 118/49 O2 Sat by Pulse Oximetry O2 Sat by Pulse Oximetry [ Assessment] 09/26/17 09/26/17 09/26/17 07:00 07:15 07:31 Temperature Pulse Rate 98 H 107 H 101 H Pulse Rate [ Apical] Pulse Rate [ From Monitor] Respiratory 21 28 H 24 Rate Respiratory Rate [ Generalized] Blood Pressure 121/70 121/70 131/62 O2 Sat by Pulse 97 Oximetry O2 Sat by Pulse Oximetry [ Assessment] 09/26/17 09/26/17 09/26/17 07:45 07:59 08:00 Temperature 98.1 F Pulse Rate 95 H Pulse Rate [ Apical] Pulse Rate [ From Monitor] Respiratory 25 H 24 Rate Respiratory Rate [ Generalized] Blood Pressure 131/62 O2 Sat by Pulse 100 Oximetry O2 Sat by Pulse 100 Oximetry [ Assessment] 09/26/17 09/26/17 09/26/17 08:01 08:15 08:21 Temperature Pulse Rate 104 H 103 H 103 H Pulse Rate [ Apical] Pulse Rate [ From Monitor] Respiratory 24 28 H Rate Respiratory Rate [ Generalized] Blood Pressure 133/83 133/83 99/46 O2 Sat by Pulse 97 100 100 Oximetry O2 Sat by Pulse Oximetry [ Assessment] 09/26/17 09/26/17 09/26/17 08:31 08:45 09:00 Temperature Pulse Rate 99 H 105 H 99 H Pulse Rate [ Apical] Pulse Rate [ From Monitor] Respiratory 24 19 24 Rate Respiratory Rate [ Generalized] Blood Pressure 112/54 112/54 103/48 O2 Sat by Pulse 99 100 Oximetry O2 Sat by Pulse Oximetry [ Assessment] 09/26/17 09/26/17 09/26/17 09:16 09:30 09:45 Temperature Pulse Rate 102 H 101 H 98 H Pulse Rate [ Apical] Pulse Rate [ From Monitor] Respiratory 25 H 22 19 Rate Respiratory Rate [ Generalized] Blood Pressure 103/48 97/64 O2 Sat by Pulse 81 L 99 Oximetry O2 Sat by Pulse Oximetry [ Assessment] 09/26/17 09/26/17 09/26/17 09:50 10:00 10:16 Temperature Pulse Rate 98 H 96 H Pulse Rate [ Apical] Pulse Rate [ From Monitor] Respiratory 20 20 21 Rate Respiratory 23 Rate [ Generalized] Blood Pressure 97/64 113/48 O2 Sat by Pulse 100 Oximetry O2 Sat by Pulse Oximetry [ Assessment] 09/26/17 09/26/17 09/26/17 10:30 10:45 11:00 Temperature Pulse Rate 100 H 99 H 101 H Pulse Rate [ Apical] Pulse Rate [ From Monitor] Respiratory 25 H 19 20 Rate Respiratory Rate [ Generalized] Blood Pressure 116/64 107/53 98/46 O2 Sat by Pulse 100 Oximetry O2 Sat by Pulse Oximetry [ Assessment] 09/26/17 09/26/17 09/26/17 11:16 11:30 11:44 Temperature 98.3 F Pulse Rate 106 H 94 H Pulse Rate [ Apical] Pulse Rate [ From Monitor] Respiratory 23 22 Rate Respiratory Rate [ Generalized] Blood Pressure 97/51 111/45 O2 Sat by Pulse 96 Oximetry O2 Sat by Pulse Oximetry [ Assessment] 09/26/17 09/26/17 09/26/17 11:45 12:00 12:15 Temperature Pulse Rate 96 H 95 H 98 H Pulse Rate [ Apical] Pulse Rate [ From Monitor] Respiratory 22 24 22 Rate Respiratory Rate [ Generalized] Blood Pressure 105/45 108/62 110/51 O2 Sat by Pulse 94 100 Oximetry O2 Sat by Pulse Oximetry [ Assessment] 09/26/17 09/26/17 09/26/17 12:30 12:45 13:00 Temperature Pulse Rate 101 H 99 H 100 H Pulse Rate [ Apical] Pulse Rate [ From Monitor] Respiratory 27 H 18 24 Rate Respiratory Rate [ Generalized] Blood Pressure 115/52 111/54 128/53 O2 Sat by Pulse Oximetry O2 Sat by Pulse Oximetry [ Assessment] 09/26/17 13:15 Temperature Pulse Rate 92 H Pulse Rate [ Apical] Pulse Rate [ From Monitor] Respiratory 23 Rate Respiratory Rate [ Generalized] Blood Pressure 116/51 O2 Sat by Pulse Oximetry O2 Sat by Pulse Oximetry [ Assessment] Constitutional: other (critically ill on vent, obese) Eyes: non-icteric ENT: oropharynx dry Neck: supple, other (trach in position, no bleeding) Effort: mildly labored Ascultation: Bilateral: wheezes (faint expiratory wheezes), other (coarse BS bilaterally) Cardiovascular: other (tachy, RR; no mrg) Gastrointestinal: absent bowel sounds, non-tender, other (abdominal incision with dressing , obese. Drain in place, no bleeding; ostomy with brown stool) Integumentary: normal Extremities: no cyanosis, pink and warm, edema Neurologic: non-focal exam, pupils equal and round Psychiatric: mood appropriate, affect normal CBC and BMP: 09/26/17 05:25 09/26/17 05:25 ABG, PT/INR, D-dimer: ABG POC ABG pH 7.347 (7.35-7.45) L 09/13/17 11:36 ABG pH 7.323 pH Units (7.350-7.450) L 09/09/17 Unknown POC ABG pCO2 34.3 (35-45) L 09/13/17 11:36 ABG pCO2 41.1 mm Hg 09/09/17 Unknown POC ABG pO2 134 (80-105) H 09/13/17 11:36 ABG pO2 94.1 mm Hg (80.0-90.0) H 09/09/17 Unknown POC ABG HCO3 18.8 09/13/17 11:36 POC ABG Total CO2 20 09/13/17 11:36 POC ABG O2 Sat 99 09/13/17 11:36 ABG O2 Saturation 97.2 % (95.0-99.0) 09/09/17 Unknown PT/INR, D-dimer PT 14.9 Sec. (12.2-14.9) 09/21/17 07:00 INR 1.11 (0.87-1.13) 09/21/17 07:00 Abnormal lab findings: Abnormal Labs 08/08/17 08/08/17 08/09/17 21:23 21:31 11:19 WBC 15.7 H RBC 2.93 L Hgb 8.7 L Hct 26.8 L MCV MCH RDW 19.2 H Plt Count Lymph % (Auto) [place] % (Auto) [place] # Seg Neutrophils % Seg Neuts % (Manual) Lymphocytes % (Manual) Monocytes % (Manual) Nucleated RBC % Seg Neutrophils # Seg Neutrophils # Man Lymphocytes # (Manual) Monocytes # (Manual) Eosinophils # (Manual) Basophils # (Manual) PT INR POC ABG pH 7.490 H ABG pH POC ABG pCO2 POC ABG pO2 122 H ABG pO2 ABG O2 Saturation ABG Base Excess ABG Hemoglobin Oxyhemoglobin Sodium Potassium Chloride Carbon Dioxide BUN Creatinine Glucose POC Glucose Calcium Phosphorus Magnesium Iron TIBC Ferritin Total Bilirubin AST ALT Alkaline Phosphatase Total Creatine Kinase Troponin T 0.133 H* C-Reactive Protein Total Protein Albumin Triglycerides HDL Cholesterol 26 L Miscellaneous Test Crossmatch 08/09/17 08/10/17 08/10/17 13:25 04:45 04:45 WBC 15.5 H RBC 2.97 L Hgb 8.9 L Hct 27.0 L MCV MCH RDW 19.2 H Plt Count Lymph % (Auto) [place] % (Auto) [place] # Seg Neutrophils % Seg Neuts % (Manual) 73.0 H Lymphocytes % (Manual) 7.0 L Monocytes % (Manual) 14.0 H Nucleated RBC % Seg Neutrophils # Seg Neutrophils # Man 11.3 H Lymphocytes # (Manual) 1.1 L Monocytes # (Manual) 2.2 H Eosinophils # (Manual) Basophils # (Manual) 0.2 H PT INR POC ABG pH ABG pH POC ABG pCO2 POC ABG pO2 ABG pO2 ABG O2 Saturation ABG Base Excess ABG Hemoglobin Oxyhemoglobin Sodium Potassium 3.3 L Chloride 97.3 L Carbon Dioxide 21 L BUN 23 H Creatinine 6.5 H Glucose POC Glucose Calcium 7.3 L Phosphorus Magnesium Iron TIBC Ferritin Total Bilirubin AST ALT Alkaline Phosphatase 138 H Total Creatine Kinase Troponin T 0.132 H* C-Reactive Protein Total Protein 4.8 L Albumin 1.4 L Triglycerides HDL Cholesterol Miscellaneous Test Crossmatch 08/11/17 08/11/17 08/12/17 04:00 04:00 05:50 WBC 19.3 H RBC 3.10 L Hgb 9.5 L Hct 28.2 L MCV MCH RDW 19.2 H Plt Count 463 H Lymph % (Auto) 7.5 L [place] % (Auto) 14.6 H [place] # 2.8 H Seg Neutrophils % 77.0 H Seg Neuts % (Manual) Lymphocytes % (Manual) Monocytes % (Manual) Nucleated RBC % Seg Neutrophils # 14.8 H Seg Neutrophils # Man Lymphocytes # (Manual) Monocytes # (Manual) Eosinophils # (Manual) Basophils # (Manual) PT INR POC ABG pH ABG pH POC ABG pCO2 POC ABG pO2 ABG pO2 ABG O2 Saturation ABG Base Excess ABG Hemoglobin Oxyhemoglobin Sodium 136 L 136 L Potassium 3.3 L Chloride 96.3 L 96.6 L Carbon Dioxide BUN 26 H 26 H Creatinine 6.4 H 6.2 H Glucose 135 H 133 H POC Glucose Calcium 8.2 L Phosphorus Magnesium 1.30 L Iron TIBC Ferritin Total Bilirubin AST ALT Alkaline Phosphatase 139 H Total Creatine Kinase Troponin T C-Reactive Protein Total Protein 5.5 L Albumin 1.7 L Triglycerides HDL Cholesterol Miscellaneous Test Crossmatch 08/12/17 08/12/17 08/12/17 05:50 05:50 05:50 WBC 20.1 H RBC 3.06 L Hgb 9.3 L Hct 27.9 L MCV MCH RDW 18.4 H Plt Count 471 H Lymph % (Auto) [place] % (Auto) [place] # Seg Neutrophils % Seg Neuts % (Manual) 85.0 H Lymphocytes % (Manual) 8.0 L Monocytes % (Manual) Nucleated RBC % Seg Neutrophils # Seg Neutrophils # Man 17.1 H Lymphocytes # (Manual) Monocytes # (Manual) 1.0 H Eosinophils # (Manual) Basophils # (Manual) PT 15.2 H INR 1.14 H POC ABG pH ABG pH POC ABG pCO2 POC ABG pO2 ABG pO2 ABG O2 Saturation ABG Base Excess ABG Hemoglobin Oxyhemoglobin Sodium Potassium Chloride Carbon Dioxide BUN Creatinine Glucose POC Glucose Calcium Phosphorus Magnesium Iron TIBC Ferritin Total Bilirubin AST ALT Alkaline Phosphatase Total Creatine Kinase Troponin T C-Reactive Protein 28.90 H Total Protein Albumin Triglycerides HDL Cholesterol Miscellaneous Test Crossmatch 08/12/17 08/13/17 08/13/17 16:23 06:14 06:14 WBC 21.8 H RBC 3.11 L Hgb 9.4 L Hct 28.2 L MCV MCH RDW 18.2 H Plt Count 492 H Lymph % (Auto) [place] % (Auto) [place] # Seg Neutrophils % Seg Neuts % (Manual) 73.0 H Lymphocytes % (Manual) 2.0 L Monocytes % (Manual) 15 H Nucleated RBC % Seg Neutrophils # Seg Neutrophils # Man 15.9 H Lymphocytes # (Manual) 0.4 L Monocytes # (Manual) 2.4 H Eosinophils # (Manual) Basophils # (Manual) PT INR POC ABG pH ABG pH POC ABG pCO2 POC ABG pO2 ABG pO2 ABG O2 Saturation ABG Base Excess ABG Hemoglobin Oxyhemoglobin Sodium Potassium Chloride 96.2 L Carbon Dioxide BUN 28 H Creatinine 5.6 H Glucose 114 H POC Glucose Calcium Phosphorus Magnesium Iron TIBC Ferritin Total Bilirubin AST ALT Alkaline Phosphatase Total Creatine Kinase Troponin T C-Reactive Protein 26.10 H Total Protein Albumin Triglycerides HDL Cholesterol Miscellaneous Test Crossmatch 08/13/17 08/14/17 08/14/17 16:39 04:00 04:00 WBC 22.1 H RBC 3.25 L Hgb 9.9 L Hct 29.5 L MCV MCH RDW 17.9 H Plt Count 525 H Lymph % (Auto) [place] % (Auto) [place] # Seg Neutrophils % Seg Neuts % (Manual) 74.0 H Lymphocytes % (Manual) 8.0 L Monocytes % (Manual) 12.0 H Nucleated RBC % Seg Neutrophils # Seg Neutrophils # Man 16.4 H Lymphocytes # (Manual) Monocytes # (Manual) 2.7 H Eosinophils # (Manual) Basophils # (Manual) PT INR POC ABG pH ABG pH POC ABG pCO2 POC ABG pO2 ABG pO2 ABG O2 Saturation ABG Base Excess ABG Hemoglobin Oxyhemoglobin Sodium 134 L Potassium 3.3 L Chloride 93.3 L Carbon Dioxide BUN 27 H Creatinine 6.0 H Glucose 152 H POC Glucose 151 H Calcium Phosphorus Magnesium Iron TIBC Ferritin Total Bilirubin AST ALT Alkaline Phosphatase Total Creatine Kinase Troponin T C-Reactive Protein Total Protein Albumin Triglycerides HDL Cholesterol Miscellaneous Test Crossmatch 08/15/17 08/16/17 08/16/17 09:10 09:50 09:50 WBC 31.1 H RBC 3.21 L Hgb 9.6 L Hct 29.3 L MCV MCH RDW 18.1 H Plt Count 642 H Lymph % (Auto) [place] % (Auto) [place] # Seg Neutrophils % Seg Neuts % (Manual) 74.0 H Lymphocytes % (Manual) 4.0 L Monocytes % (Manual) 9.0 H Nucleated RBC % Seg Neutrophils # Seg Neutrophils # Man 23.0 H Lymphocytes # (Manual) Monocytes # (Manual) 2.8 H Eosinophils # (Manual) Basophils # (Manual) PT INR POC ABG pH ABG pH POC ABG pCO2 POC ABG pO2 ABG pO2 ABG O2 Saturation ABG Base Excess ABG Hemoglobin Oxyhemoglobin Sodium 136 L 136 L Potassium 3.5 L Chloride 97.6 L 94.9 L Carbon Dioxide BUN 27 H 28 H Creatinine 5.6 H 5.5 H Glucose 117 H 103 H POC Glucose Calcium Phosphorus Magnesium Iron TIBC Ferritin Total Bilirubin AST ALT Alkaline Phosphatase 137 H Total Creatine Kinase Troponin T C-Reactive Protein Total Protein 5.4 L Albumin 1.5 L Triglycerides HDL Cholesterol Miscellaneous Test Crossmatch 08/16/17 08/17/17 08/17/17 09:50 05:00 06:26 WBC RBC Hgb Hct MCV MCH RDW Plt Count Lymph % (Auto) [place] % (Auto) [place] # Seg Neutrophils % Seg Neuts % (Manual) Lymphocytes % (Manual) Monocytes % (Manual) Nucleated RBC % Seg Neutrophils # Seg Neutrophils # Man Lymphocytes # (Manual) Monocytes # (Manual) Eosinophils # (Manual) Basophils # (Manual) PT INR POC ABG pH ABG pH POC ABG pCO2 POC ABG pO2 ABG pO2 ABG O2 Saturation ABG Base Excess ABG Hemoglobin Oxyhemoglobin Sodium 134 L Potassium 3.0 L Chloride 97.8 L Carbon Dioxide BUN 30 H Creatinine 5.3 H Glucose 147 H POC Glucose 165 H Calcium 7.5 L Phosphorus Magnesium Iron TIBC Ferritin Total Bilirubin AST ALT Alkaline Phosphatase Total Creatine Kinase Troponin T C-Reactive Protein 32.30 H Total Protein Albumin Triglycerides HDL Cholesterol Miscellaneous Test Crossmatch 08/17/17 08/17/17 08/17/17 10:56 11:20 11:20 WBC 39.1 H RBC 3.10 L Hgb 9.2 L Hct 28.6 L MCV MCH RDW 18.3 H Plt Count 580 H Lymph % (Auto) [place] % (Auto) [place] # Seg Neutrophils % Seg Neuts % (Manual) 89.5 H Lymphocytes % (Manual) 3.5 L Monocytes % (Manual) Nucleated RBC % Seg Neutrophils # Seg Neutrophils # Man 35.0 H Lymphocytes # (Manual) Monocytes # (Manual) 2.5 H Eosinophils # (Manual) Basophils # (Manual) 0.2 H PT INR POC ABG pH 7.464 H ABG pH POC ABG pCO2 34.1 L POC ABG pO2 75 L ABG pO2 ABG O2 Saturation ABG Base Excess ABG Hemoglobin Oxyhemoglobin Sodium Potassium Chloride Carbon Dioxide BUN Creatinine Glucose POC Glucose Calcium Phosphorus Magnesium Iron TIBC Ferritin Total Bilirubin AST ALT Alkaline Phosphatase Total Creatine Kinase Troponin T C-Reactive Protein Total Protein Albumin Triglycerides HDL Cholesterol Miscellaneous Test Flexitest 1 H Crossmatch 08/17/17 08/17/17 08/17/17 11:20 16:57 20:20 WBC 34.4 H RBC 2.81 L Hgb 8.4 L Hct 26.0 L MCV MCH RDW 17.8 H Plt Count 455 H Lymph % (Auto) [place] % (Auto) [place] # Seg Neutrophils % Seg Neuts % (Manual) Lymphocytes % (Manual) 3.5 L Monocytes % (Manual) Nucleated RBC % 5.0 H Seg Neutrophils # Seg Neutrophils # Man 16.5 H Lymphocytes # (Manual) Monocytes # (Manual) 1.0 H Eosinophils # (Manual) Basophils # (Manual) PT 16.0 H INR 1.29 H POC ABG pH ABG pH POC ABG pCO2 POC ABG pO2 ABG pO2 ABG O2 Saturation ABG Base Excess ABG Hemoglobin Oxyhemoglobin Sodium 135 L Potassium 2.9 L* Chloride Carbon Dioxide 20 L BUN 32 H Creatinine 5.4 H Glucose 129 H POC Glucose Calcium 7.5 L Phosphorus Magnesium 1.50 L Iron TIBC Ferritin Total Bilirubin AST 85 H ALT Alkaline Phosphatase Total Creatine Kinase Troponin T C-Reactive Protein Total Protein 4.0 L D Albumin 1.6 L Triglycerides HDL Cholesterol Miscellaneous Test Crossmatch 08/17/17 08/17/17 08/18/17 20:54 23:47 04:26 WBC RBC Hgb Hct MCV MCH RDW Plt Count Lymph % (Auto) [place] % (Auto) [place] # Seg Neutrophils % Seg Neuts % (Manual) Lymphocytes % (Manual) Monocytes % (Manual) Nucleated RBC % Seg Neutrophils # Seg Neutrophils # Man Lymphocytes # (Manual) Monocytes # (Manual) Eosinophils # (Manual) Basophils # (Manual) PT INR POC ABG pH 7.557 H ABG pH POC ABG pCO2 23.1 L 29.0 L POC ABG pO2 187 H 148 H ABG pO2 ABG O2 Saturation ABG Base Excess ABG Hemoglobin Oxyhemoglobin Sodium Potassium Chloride Carbon Dioxide BUN Creatinine Glucose POC Glucose 188 H Calcium Phosphorus Magnesium Iron TIBC Ferritin Total Bilirubin AST ALT Alkaline Phosphatase Total Creatine Kinase Troponin T C-Reactive Protein Total Protein Albumin Triglycerides HDL Cholesterol Miscellaneous Test Crossmatch 08/18/17 08/18/17 08/18/17 05:51 11:44 17:07 WBC RBC Hgb Hct MCV MCH RDW Plt Count Lymph % (Auto) [place] % (Auto) [place] # Seg Neutrophils % Seg Neuts % (Manual) Lymphocytes % (Manual) Monocytes % (Manual) Nucleated RBC % Seg Neutrophils # Seg Neutrophils # Man Lymphocytes # (Manual) Monocytes # (Manual) Eosinophils # (Manual) Basophils # (Manual) PT INR POC ABG pH ABG pH POC ABG pCO2 POC ABG pO2 ABG pO2 ABG O2 Saturation ABG Base Excess ABG Hemoglobin Oxyhemoglobin Sodium Potassium Chloride Carbon Dioxide BUN Creatinine Glucose POC Glucose 202 H 195 H 182 H Calcium Phosphorus Magnesium Iron TIBC Ferritin Total Bilirubin AST ALT Alkaline Phosphatase Total Creatine Kinase Troponin T C-Reactive Protein Total Protein Albumin Triglycerides HDL Cholesterol Miscellaneous Test Crossmatch 08/18/17 08/18/17 08/18/17 23:45 Unknown Unknown WBC 39.0 H RBC 2.84 L Hgb 8.4 L Hct 26.5 L MCV MCH RDW 18.0 H Plt Count 476 H Lymph % (Auto) [place] % (Auto) [place] # Seg Neutrophils % Seg Neuts % (Manual) Lymphocytes % (Manual) 7.0 L Monocytes % (Manual) 10.0 H Nucleated RBC % 3.0 H Seg Neutrophils # Seg Neutrophils # Man 15.6 H Lymphocytes # (Manual) Monocytes # (Manual) 3.9 H Eosinophils # (Manual) Basophils # (Manual) PT INR POC ABG pH ABG pH POC ABG pCO2 POC ABG pO2 ABG pO2 ABG O2 Saturation ABG Base Excess ABG Hemoglobin Oxyhemoglobin Sodium Potassium Chloride Carbon Dioxide 19 L BUN 34 H Creatinine 5.6 H Glucose 201 H POC Glucose 163 H Calcium 7.8 L Phosphorus 1.90 L D Magnesium 1.60 L Iron TIBC Ferritin Total Bilirubin AST ALT Alkaline Phosphatase Total Creatine Kinase Troponin T C-Reactive Protein Total Protein Albumin Triglycerides HDL Cholesterol Miscellaneous Test Crossmatch 08/19/17 08/19/17 08/19/17 04:18 05:00 05:00 WBC 40.0 H RBC 2.46 L Hgb 7.3 L Hct 22.6 L MCV MCH RDW 18.1 H Plt Count Lymph % (Auto) [place] % (Auto) [place] # Seg Neutrophils % Seg Neuts % (Manual) Lymphocytes % (Manual) 8.0 L Monocytes % (Manual) Nucleated RBC % 2.0 H Seg Neutrophils # Seg Neutrophils # Man 16.4 H Lymphocytes # (Manual) Monocytes # (Manual) 1.2 H Eosinophils # (Manual) 1.2 H Basophils # (Manual) PT INR POC ABG pH 7.463 H ABG pH POC ABG pCO2 29.7 L POC ABG pO2 134 H ABG pO2 ABG O2 Saturation ABG Base Excess ABG Hemoglobin Oxyhemoglobin Sodium Potassium 5.1 H D Chloride Carbon Dioxide 20 L BUN 40 H Creatinine 5.3 H Glucose 128 H POC Glucose Calcium 7.8 L Phosphorus 1.90 L Magnesium Iron TIBC Ferritin Total Bilirubin AST ALT Alkaline Phosphatase Total Creatine Kinase Troponin T C-Reactive Protein Total Protein Albumin Triglycerides HDL Cholesterol Miscellaneous Test Crossmatch 08/19/17 08/19/17 08/19/17 05:19 07:37 09:52 WBC 45.0 H* RBC 2.50 L Hgb 7.5 L Hct 24.5 L MCV 98 H MCH RDW 18.4 H Plt Count Lymph % (Auto) [place] % (Auto) [place] # Seg Neutrophils % Seg Neuts % (Manual) 81.5 H Lymphocytes % (Manual) 4.0 L Monocytes % (Manual) Nucleated RBC % 1.0 H Seg Neutrophils # Seg Neutrophils # Man 36.7 H Lymphocytes # (Manual) Monocytes # (Manual) Eosinophils # (Manual) Basophils # (Manual) PT INR POC ABG pH ABG pH POC ABG pCO2 POC ABG pO2 ABG pO2 ABG O2 Saturation ABG Base Excess ABG Hemoglobin Oxyhemoglobin Sodium Potassium Chloride Carbon Dioxide BUN Creatinine Glucose POC Glucose 142 H Calcium Phosphorus Magnesium Iron TIBC Ferritin Total Bilirubin AST ALT Alkaline Phosphatase Total Creatine Kinase Troponin T C-Reactive Protein 34.20 H Total Protein Albumin Triglycerides HDL Cholesterol Miscellaneous Test Crossmatch 08/19/17 08/19/17 08/20/17 11:16 18:12 00:35 WBC RBC Hgb Hct MCV MCH RDW Plt Count Lymph % (Auto) [place] % (Auto) [place] # Seg Neutrophils % Seg Neuts % (Manual) Lymphocytes % (Manual) Monocytes % (Manual) Nucleated RBC % Seg Neutrophils # Seg Neutrophils # Man Lymphocytes # (Manual) Monocytes # (Manual) Eosinophils # (Manual) Basophils # (Manual) PT INR POC ABG pH ABG pH POC ABG pCO2 POC ABG pO2 ABG pO2 ABG O2 Saturation ABG Base Excess ABG Hemoglobin Oxyhemoglobin Sodium Potassium Chloride Carbon Dioxide BUN Creatinine Glucose POC Glucose 143 H 137 H 164 H Calcium Phosphorus Magnesium Iron TIBC Ferritin Total Bilirubin AST ALT Alkaline Phosphatase Total Creatine Kinase Troponin T C-Reactive Protein Total Protein Albumin Triglycerides HDL Cholesterol Miscellaneous Test Crossmatch 08/20/17 08/20/17 08/20/17 03:20 03:20 04:00 WBC 48.0 H* RBC 2.55 L Hgb 7.6 L Hct 23.4 L MCV MCH RDW 18.4 H Plt Count Lymph % (Auto) [place] % (Auto) [place] # Seg Neutrophils % Seg Neuts % (Manual) 90.0 H Lymphocytes % (Manual) 3.0 L Monocytes % (Manual) Nucleated RBC % Seg Neutrophils # Seg Neutrophils # Man 43.2 H Lymphocytes # (Manual) Monocytes # (Manual) 1.4 H Eosinophils # (Manual) 0.5 H Basophils # (Manual) PT INR POC ABG pH 7.499 H ABG pH POC ABG pCO2 29.1 L POC ABG pO2 ABG pO2 ABG O2 Saturation ABG Base Excess ABG Hemoglobin Oxyhemoglobin Sodium 135 L Potassium Chloride Carbon Dioxide BUN 28 H Creatinine 4.0 H Glucose 140 H POC Glucose Calcium 8.0 L Phosphorus 1.70 L Magnesium 1.60 L Iron TIBC Ferritin Total Bilirubin AST ALT Alkaline Phosphatase Total Creatine Kinase Troponin T C-Reactive Protein Total Protein Albumin Triglycerides HDL Cholesterol Miscellaneous Test Crossmatch 08/20/17 08/20/17 08/20/17 05:02 12:05 13:12 WBC RBC Hgb Hct MCV MCH RDW Plt Count Lymph % (Auto) [place] % (Auto) [place] # Seg Neutrophils % Seg Neuts % (Manual) Lymphocytes % (Manual) Monocytes % (Manual) Nucleated RBC % Seg Neutrophils # Seg Neutrophils # Man Lymphocytes # (Manual) Monocytes # (Manual) Eosinophils # (Manual) Basophils # (Manual) PT INR POC ABG pH 7.537 H ABG pH POC ABG pCO2 27.9 L POC ABG pO2 79 L ABG pO2 ABG O2 Saturation ABG Base Excess ABG Hemoglobin Oxyhemoglobin Sodium Potassium Chloride Carbon Dioxide BUN Creatinine Glucose POC Glucose 158 H 203 H Calcium Phosphorus Magnesium Iron TIBC Ferritin Total Bilirubin AST ALT Alkaline Phosphatase Total Creatine Kinase Troponin T C-Reactive Protein Total Protein Albumin Triglycerides HDL Cholesterol Miscellaneous Test Crossmatch 08/20/17 08/21/17 08/21/17 17:13 00:47 03:14 WBC RBC Hgb Hct MCV MCH RDW Plt Count Lymph % (Auto) [place] % (Auto) [place] # Seg Neutrophils % Seg Neuts % (Manual) Lymphocytes % (Manual) Monocytes % (Manual) Nucleated RBC % Seg Neutrophils # Seg Neutrophils # Man Lymphocytes # (Manual) Monocytes # (Manual) Eosinophils # (Manual) Basophils # (Manual) PT INR POC ABG pH 7.481 H ABG pH POC ABG pCO2 29.6 L POC ABG pO2 ABG pO2 ABG O2 Saturation ABG Base Excess ABG Hemoglobin Oxyhemoglobin Sodium Potassium Chloride Carbon Dioxide BUN Creatinine Glucose POC Glucose 188 H 109 H Calcium Phosphorus Magnesium Iron TIBC Ferritin Total Bilirubin AST ALT Alkaline Phosphatase Total Creatine Kinase Troponin T C-Reactive Protein Total Protein Albumin Triglycerides HDL Cholesterol Miscellaneous Test Crossmatch 08/21/17 08/21/17 08/21/17 05:05 06:50 06:50 WBC 44.7 H* RBC 2.41 L Hgb 7.1 L Hct 22.1 L MCV MCH RDW 18.3 H Plt Count Lymph % (Auto) [place] % (Auto) [place] # Seg Neutrophils % Seg Neuts % (Manual) 89.0 H Lymphocytes % (Manual) 0 L Monocytes % (Manual) Nucleated RBC % 1.0 H Seg Neutrophils # Seg Neutrophils # Man 39.8 H Lymphocytes # (Manual) 0.0 L Monocytes # (Manual) 1.3 H Eosinophils # (Manual) Basophils # (Manual) PT INR POC ABG pH ABG pH POC ABG pCO2 POC ABG pO2 ABG pO2 ABG O2 Saturation ABG Base Excess ABG Hemoglobin Oxyhemoglobin Sodium 135 L Potassium Chloride Carbon Dioxide BUN 39 H Creatinine 4.4 H Glucose 147 H POC Glucose 166 H Calcium 8.1 L Phosphorus Magnesium Iron TIBC Ferritin Total Bilirubin AST ALT < 5 L Alkaline Phosphatase 164 H Total Creatine Kinase Troponin T C-Reactive Protein Total Protein 4.7 L Albumin 1.4 L Triglycerides HDL Cholesterol Miscellaneous Test Crossmatch 08/21/17 08/21/17 08/21/17 08:00 12:21 17:02 WBC RBC Hgb Hct MCV MCH RDW Plt Count Lymph % (Auto) [place] % (Auto) [place] # Seg Neutrophils % Seg Neuts % (Manual) Lymphocytes % (Manual) Monocytes % (Manual) Nucleated RBC % Seg Neutrophils # Seg Neutrophils # Man Lymphocytes # (Manual) Monocytes # (Manual) Eosinophils # (Manual) Basophils # (Manual) PT INR POC ABG pH ABG pH POC ABG pCO2 POC ABG pO2 ABG pO2 ABG O2 Saturation ABG Base Excess ABG Hemoglobin Oxyhemoglobin Sodium Potassium Chloride Carbon Dioxide BUN Creatinine Glucose POC Glucose 147 H 135 H Calcium Phosphorus Magnesium Iron TIBC Ferritin Total Bilirubin AST ALT Alkaline Phosphatase Total Creatine Kinase Troponin T C-Reactive Protein Total Protein Albumin Triglycerides HDL Cholesterol Miscellaneous Test Crossmatch See Detail 08/21/17 08/22/1717 23:38 03:40 03:40 WBC 42.5 H* RBC 2.88 L Hgb 8.5 L Hct 26.3 L MCV MCH RDW 17.9 H Plt Count Lymph % (Auto) [place] % (Auto) [place] # Seg Neutrophils % Seg Neuts % (Manual) Lymphocytes % (Manual) 5.0 L Monocytes % (Manual) Nucleated RBC % Seg Neutrophils # Seg Neutrophils # Man 19.6 H Lymphocytes # (Manual) Monocytes # (Manual) 2.6 H Eosinophils # (Manual) Basophils # (Manual) PT INR POC ABG pH ABG pH POC ABG pCO2 POC ABG pO2 ABG pO2 ABG O2 Saturation ABG Base Excess ABG Hemoglobin Oxyhemoglobin Sodium Potassium 3.3 L D Chloride Carbon Dioxide BUN 27 H Creatinine 2.9 H Glucose 144 H POC Glucose 251 H Calcium 8.0 L Phosphorus 2.40 L Magnesium Iron TIBC Ferritin Total Bilirubin AST ALT Alkaline Phosphatase Total Creatine Kinase Troponin T C-Reactive Protein Total Protein Albumin Triglycerides HDL Cholesterol Miscellaneous Test Crossmatch 08/22/17 08/22/17 08/22/17 06:37 08:50 11:25 WBC RBC Hgb Hct MCV MCH RDW Plt Count Lymph % (Auto) [place] % (Auto) [place] # Seg Neutrophils % Seg Neuts % (Manual) Lymphocytes % (Manual) Monocytes % (Manual) Nucleated RBC % Seg Neutrophils # Seg Neutrophils # Man Lymphocytes # (Manual) Monocytes # (Manual) Eosinophils # (Manual) Basophils # (Manual) PT INR POC ABG pH ABG pH POC ABG pCO2 POC ABG pO2 ABG pO2 ABG O2 Saturation ABG Base Excess ABG Hemoglobin Oxyhemoglobin Sodium Potassium Chloride Carbon Dioxide BUN Creatinine Glucose POC Glucose 152 H 175 H Calcium Phosphorus Magnesium Iron TIBC Ferritin Total Bilirubin AST ALT Alkaline Phosphatase Total Creatine Kinase Troponin T C-Reactive Protein Total Protein Albumin Triglycerides HDL Cholesterol Miscellaneous Test Flexitest 1 H Crossmatch 08/22/17 08/22/17 08/22/17 16:25 17:56 23:03 WBC RBC Hgb Hct MCV MCH RDW Plt Count Lymph % (Auto) [place] % (Auto) [place] # Seg Neutrophils % Seg Neuts % (Manual) Lymphocytes % (Manual) Monocytes % (Manual) Nucleated RBC % Seg Neutrophils # Seg Neutrophils # Man Lymphocytes # (Manual) Monocytes # (Manual) Eosinophils # (Manual) Basophils # (Manual) PT INR POC ABG pH ABG pH POC ABG pCO2 POC ABG pO2 ABG pO2 ABG O2 Saturation ABG Base Excess ABG Hemoglobin Oxyhemoglobin Sodium Potassium Chloride Carbon Dioxide BUN Creatinine Glucose POC Glucose 232 H 192 H Calcium Phosphorus Magnesium Iron TIBC Ferritin Total Bilirubin AST ALT Alkaline Phosphatase Total Creatine Kinase Troponin T C-Reactive Protein 30.70 H Total Protein Albumin Triglycerides HDL Cholesterol Miscellaneous Test Crossmatch 08/23/17 08/23/17 08/23/17 05:36 08:50 12:14 WBC RBC Hgb Hct MCV MCH RDW Plt Count Lymph % (Auto) [place] % (Auto) [place] # Seg Neutrophils % Seg Neuts % (Manual) Lymphocytes % (Manual) Monocytes % (Manual) Nucleated RBC % Seg Neutrophils # Seg Neutrophils # Man Lymphocytes # (Manual) Monocytes # (Manual) Eosinophils # (Manual) Basophils # (Manual) PT INR POC ABG pH ABG pH POC ABG pCO2 POC ABG pO2 ABG pO2 ABG O2 Saturation ABG Base Excess ABG Hemoglobin Oxyhemoglobin Sodium Potassium Chloride 107.1 H Carbon Dioxide BUN 49 H Creatinine 3.3 H Glucose 172 H POC Glucose 206 H 238 H Calcium Phosphorus Magnesium 2.40 H Iron TIBC Ferritin Total Bilirubin AST ALT Alkaline Phosphatase Total Creatine Kinase Troponin T C-Reactive Protein Total Protein Albumin Triglycerides HDL Cholesterol Miscellaneous Test Crossmatch 08/23/17 08/23/17 08/24/17 17:21 23:13 04:00 WBC 34.2 H RBC 2.86 L Hgb 8.4 L Hct 25.9 L MCV MCH RDW 17.9 H Plt Count Lymph % (Auto) [place] % (Auto) [place] # Seg Neutrophils % Seg Neuts % (Manual) 85.0 H Lymphocytes % (Manual) 0.5 L Monocytes % (Manual) Nucleated RBC % 1.0 H Seg Neutrophils # Seg Neutrophils # Man 29.1 H Lymphocytes # (Manual) 0.2 L Monocytes # (Manual) 2.4 H Eosinophils # (Manual) Basophils # (Manual) PT INR POC ABG pH ABG pH POC ABG pCO2 POC ABG pO2 ABG pO2 ABG O2 Saturation ABG Base Excess ABG Hemoglobin Oxyhemoglobin Sodium Potassium Chloride Carbon Dioxide BUN Creatinine Glucose POC Glucose 226 H 183 H Calcium Phosphorus Magnesium Iron TIBC Ferritin Total Bilirubin AST ALT Alkaline Phosphatase Total Creatine Kinase Troponin T C-Reactive Protein Total Protein Albumin Triglycerides HDL Cholesterol Miscellaneous Test Crossmatch 08/24/17 08/24/17 08/24/17 05:06 09:30 12:04 WBC RBC Hgb Hct MCV MCH RDW Plt Count Lymph % (Auto) [place] % (Auto) [place] # Seg Neutrophils % Seg Neuts % (Manual) Lymphocytes % (Manual) Monocytes % (Manual) Nucleated RBC % Seg Neutrophils # Seg Neutrophils # Man Lymphocytes # (Manual) Monocytes # (Manual) Eosinophils # (Manual) Basophils # (Manual) PT INR POC ABG pH ABG pH POC ABG pCO2 POC ABG pO2 ABG pO2 ABG O2 Saturation ABG Base Excess ABG Hemoglobin Oxyhemoglobin Sodium Potassium Chloride Carbon Dioxide BUN 46 H Creatinine 2.5 H Glucose 176 H POC Glucose 201 H 181 H Calcium Phosphorus Magnesium Iron TIBC Ferritin Total Bilirubin AST ALT Alkaline Phosphatase Total Creatine Kinase Troponin T C-Reactive Protein Total Protein Albumin Triglycerides HDL Cholesterol Miscellaneous Test Crossmatch 08/24/17 08/24/17 08/25/17 18:04 23:05 05:05 WBC RBC Hgb Hct MCV MCH RDW Plt Count Lymph % (Auto) [place] % (Auto) [place] # Seg Neutrophils % Seg Neuts % (Manual) Lymphocytes % (Manual) Monocytes % (Manual) Nucleated RBC % Seg Neutrophils # Seg Neutrophils # Man Lymphocytes # (Manual) Monocytes # (Manual) Eosinophils # (Manual) Basophils # (Manual) PT INR POC ABG pH ABG pH POC ABG pCO2 POC ABG pO2 ABG pO2 ABG O2 Saturation ABG Base Excess ABG Hemoglobin Oxyhemoglobin Sodium Potassium Chloride Carbon Dioxide BUN Creatinine Glucose POC Glucose 189 H 175 H 190 H Calcium Phosphorus Magnesium Iron TIBC Ferritin Total Bilirubin AST ALT Alkaline Phosphatase Total Creatine Kinase Troponin T C-Reactive Protein Total Protein Albumin Triglycerides HDL Cholesterol Miscellaneous Test Crossmatch 08/25/17 08/25/17 08/26/17 07:02 11:53 05:30 WBC 33.5 H RBC 2.47 L Hgb 7.3 L Hct 23.0 L MCV MCH RDW 21.3 H Plt Count Lymph % (Auto) [place] % (Auto) [place] # Seg Neutrophils % Seg Neuts % (Manual) 92.0 H Lymphocytes % (Manual) 1.0 L Monocytes % (Manual) Nucleated RBC % Seg Neutrophils # Seg Neutrophils # Man 30.8 H Lymphocytes # (Manual) 0.3 L Monocytes # (Manual) Eosinophils # (Manual) Basophils # (Manual) PT INR POC ABG pH ABG pH POC ABG pCO2 POC ABG pO2 ABG pO2 ABG O2 Saturation ABG Base Excess ABG Hemoglobin Oxyhemoglobin Sodium Potassium Chloride Carbon Dioxide BUN 32 H Creatinine 5.0 H D Glucose 117 H POC Glucose 191 H Calcium 8.0 L Phosphorus Magnesium Iron TIBC Ferritin Total Bilirubin AST ALT Alkaline Phosphatase Total Creatine Kinase Troponin T C-Reactive Protein Total Protein Albumin Triglycerides HDL Cholesterol Miscellaneous Test Crossmatch 08/26/17 08/26/17 08/26/17 05:30 06:44 13:26 WBC RBC Hgb Hct MCV MCH RDW Plt Count Lymph % (Auto) [place] % (Auto) [place] # Seg Neutrophils % Seg Neuts % (Manual) Lymphocytes % (Manual) Monocytes % (Manual) Nucleated RBC % Seg Neutrophils # Seg Neutrophils # Man Lymphocytes # (Manual) Monocytes # (Manual) Eosinophils # (Manual) Basophils # (Manual) PT INR POC ABG pH ABG pH POC ABG pCO2 POC ABG pO2 ABG pO2 ABG O2 Saturation ABG Base Excess ABG Hemoglobin Oxyhemoglobin Sodium Potassium 5.2 H Chloride Carbon Dioxide BUN 80 H Creatinine 3.4 H Glucose 193 H POC Glucose 232 H 207 H Calcium 8.3 L Phosphorus 6.80 H D Magnesium 2.60 H Iron TIBC Ferritin Total Bilirubin AST 135 H ALT Alkaline Phosphatase 211 H Total Creatine Kinase Troponin T C-Reactive Protein Total Protein 4.8 L Albumin 2.0 L Triglycerides HDL Cholesterol Miscellaneous Test Crossmatch 08/27/17 08/27/17 08/27/17 01:08 06:20 06:20 WBC 35.0 H RBC 2.75 L Hgb 8.4 L Hct 25.1 L MCV MCH RDW 21.8 H Plt Count Lymph % (Auto) [place] % (Auto) [place] # Seg Neutrophils % Seg Neuts % (Manual) Lymphocytes % (Manual) 4.5 L Monocytes % (Manual) Nucleated RBC % Seg Neutrophils # Seg Neutrophils # Man 31.9 H Lymphocytes # (Manual) Monocytes # (Manual) 1.2 H Eosinophils # (Manual) Basophils # (Manual) PT INR POC ABG pH ABG pH POC ABG pCO2 POC ABG pO2 ABG pO2 ABG O2 Saturation ABG Base Excess ABG Hemoglobin Oxyhemoglobin Sodium Potassium Chloride Carbon Dioxide BUN 61 H Creatinine 2.6 H Glucose 184 H POC Glucose 146 H Calcium Phosphorus 4.90 H D Magnesium Iron TIBC Ferritin Total Bilirubin AST ALT Alkaline Phosphatase Total Creatine Kinase Troponin T C-Reactive Protein Total Protein Albumin Triglycerides HDL Cholesterol Miscellaneous Test Crossmatch 08/27/17 08/27/17 08/27/17 07:01 09:17 12:52 WBC RBC Hgb Hct MCV MCH RDW Plt Count Lymph % (Auto) [place] % (Auto) [place] # Seg Neutrophils % Seg Neuts % (Manual) Lymphocytes % (Manual) Monocytes % (Manual) Nucleated RBC % Seg Neutrophils # Seg Neutrophils # Man Lymphocytes # (Manual) Monocytes # (Manual) Eosinophils # (Manual) Basophils # (Manual) PT INR POC ABG pH ABG pH POC ABG pCO2 POC ABG pO2 ABG pO2 ABG O2 Saturation ABG Base Excess ABG Hemoglobin Oxyhemoglobin Sodium Potassium Chloride Carbon Dioxide BUN Creatinine Glucose POC Glucose 165 H 198 H 218 H Calcium Phosphorus Magnesium Iron TIBC Ferritin Total Bilirubin AST ALT Alkaline Phosphatase Total Creatine Kinase Troponin T C-Reactive Protein Total Protein Albumin Triglycerides HDL Cholesterol Miscellaneous Test Crossmatch 08/27/17 08/28/17 08/28/17 17:27 02:13 06:46 WBC RBC Hgb Hct MCV MCH RDW Plt Count Lymph % (Auto) [place] % (Auto) [place] # Seg Neutrophils % Seg Neuts % (Manual) Lymphocytes % (Manual) Monocytes % (Manual) Nucleated RBC % Seg Neutrophils # Seg Neutrophils # Man Lymphocytes # (Manual) Monocytes # (Manual) Eosinophils # (Manual) Basophils # (Manual) PT INR POC ABG pH ABG pH POC ABG pCO2 POC ABG pO2 ABG pO2 ABG O2 Saturation ABG Base Excess ABG Hemoglobin Oxyhemoglobin Sodium Potassium Chloride Carbon Dioxide BUN Creatinine Glucose POC Glucose 151 H 155 H 230 H Calcium Phosphorus Magnesium Iron TIBC Ferritin Total Bilirubin AST ALT Alkaline Phosphatase Total Creatine Kinase Troponin T C-Reactive Protein Total Protein Albumin Triglycerides HDL Cholesterol Miscellaneous Test Crossmatch 08/28/17 08/28/17 08/28/17 06:53 06:53 08:19 WBC 31.1 H RBC 2.26 L Hgb 6.8 L Hct 20.9 L MCV MCH RDW 21.7 H Plt Count Lymph % (Auto) [place] % (Auto) [place] # Seg Neutrophils % Seg Neuts % (Manual) 83.0 H Lymphocytes % (Manual) 4.0 L Monocytes % (Manual) Nucleated RBC % Seg Neutrophils # Seg Neutrophils # Man 25.8 H Lymphocytes # (Manual) Monocytes # (Manual) Eosinophils # (Manual) Basophils # (Manual) PT INR POC ABG pH ABG pH POC ABG pCO2 POC ABG pO2 ABG pO2 ABG O2 Saturation ABG Base Excess ABG Hemoglobin Oxyhemoglobin Sodium Potassium Chloride Carbon Dioxide BUN 81 H Creatinine 3.4 H Glucose 218 H POC Glucose 239 H Calcium Phosphorus 4.90 H Magnesium Iron TIBC Ferritin Total Bilirubin AST ALT Alkaline Phosphatase Total Creatine Kinase Troponin T C-Reactive Protein Total Protein Albumin Triglycerides HDL Cholesterol Miscellaneous Test Crossmatch 08/28/17 08/28/17 08/28/17 11:56 13:05 13:29 WBC RBC Hgb Hct MCV MCH RDW Plt Count Lymph % (Auto) [place] % (Auto) [place] # Seg Neutrophils % Seg Neuts % (Manual) Lymphocytes % (Manual) Monocytes % (Manual) Nucleated RBC % Seg Neutrophils # Seg Neutrophils # Man Lymphocytes # (Manual) Monocytes # (Manual) Eosinophils # (Manual) Basophils # (Manual) PT 16.7 H INR 1.29 H POC ABG pH ABG pH POC ABG pCO2 POC ABG pO2 338 H ABG pO2 ABG O2 Saturation ABG Base Excess ABG Hemoglobin Oxyhemoglobin Sodium Potassium Chloride Carbon Dioxide BUN Creatinine Glucose POC Glucose Calcium Phosphorus Magnesium Iron TIBC Ferritin Total Bilirubin AST ALT Alkaline Phosphatase Total Creatine Kinase Troponin T C-Reactive Protein Total Protein Albumin Triglycerides HDL Cholesterol Miscellaneous Test Crossmatch See Detail 08/28/17 08/28/17 08/29/17 16:22 19:20 04:24 WBC RBC Hgb Hct MCV MCH RDW Plt Count Lymph % (Auto) [place] % (Auto) [place] # Seg Neutrophils % Seg Neuts % (Manual) Lymphocytes % (Manual) Monocytes % (Manual) Nucleated RBC % Seg Neutrophils # Seg Neutrophils # Man Lymphocytes # (Manual) Monocytes # (Manual) Eosinophils # (Manual) Basophils # (Manual) PT INR POC ABG pH 7.469 H ABG pH POC ABG pCO2 POC ABG pO2 240 H ABG pO2 ABG O2 Saturation ABG Base Excess ABG Hemoglobin Oxyhemoglobin Sodium Potassium Chloride Carbon Dioxide BUN Creatinine Glucose POC Glucose 209 H 195 H Calcium Phosphorus Magnesium Iron TIBC Ferritin Total Bilirubin AST ALT Alkaline Phosphatase Total Creatine Kinase Troponin T C-Reactive Protein Total Protein Albumin Triglycerides HDL Cholesterol Miscellaneous Test Crossmatch 08/29/17 08/29/17 08/29/17 04:30 04:30 12:07 WBC 44.9 H* RBC Hgb Hct MCV MCH RDW 23.1 H Plt Count Lymph % (Auto) [place] % (Auto) [place] # Seg Neutrophils % Seg Neuts % (Manual) 38.0 L Lymphocytes % (Manual) 10.0 L Monocytes % (Manual) 10.0 H Nucleated RBC % 6.0 H Seg Neutrophils # Seg Neutrophils # Man 17.1 H Lymphocytes # (Manual) Monocytes # (Manual) 4.5 H Eosinophils # (Manual) Basophils # (Manual) PT INR POC ABG pH ABG pH POC ABG pCO2 POC ABG pO2 ABG pO2 ABG O2 Saturation ABG Base Excess ABG Hemoglobin Oxyhemoglobin Sodium Potassium Chloride Carbon Dioxide BUN 61 H Creatinine 2.4 H Glucose 226 H POC Glucose 200 H Calcium Phosphorus Magnesium Iron TIBC Ferritin Total Bilirubin AST ALT Alkaline Phosphatase Total Creatine Kinase Troponin T C-Reactive Protein Total Protein Albumin Triglycerides HDL Cholesterol Miscellaneous Test Crossmatch 08/29/17 08/29/17 08/29/17 12:30 12:30 17:23 WBC RBC Hgb Hct MCV MCH RDW Plt Count Lymph % (Auto) [place] % (Auto) [place] # Seg Neutrophils % Seg Neuts % (Manual) Lymphocytes % (Manual) Monocytes % (Manual) Nucleated RBC % Seg Neutrophils # Seg Neutrophils # Man Lymphocytes # (Manual) Monocytes # (Manual) Eosinophils # (Manual) Basophils # (Manual) PT INR POC ABG pH ABG pH POC ABG pCO2 POC ABG pO2 ABG pO2 ABG O2 Saturation ABG Base Excess ABG Hemoglobin Oxyhemoglobin Sodium Potassium Chloride Carbon Dioxide BUN Creatinine Glucose POC Glucose 270 H Calcium Phosphorus Magnesium Iron TIBC Ferritin Total Bilirubin AST ALT Alkaline Phosphatase Total Creatine Kinase Troponin T C-Reactive Protein 19.10 H Total Protein Albumin Triglycerides HDL Cholesterol Miscellaneous Test Flexitest 1 H Crossmatch 08/30/17 08/30/17 08/30/17 00:10 01:30 03:31 WBC RBC Hgb Hct MCV MCH RDW Plt Count Lymph % (Auto) [place] % (Auto) [place] # Seg Neutrophils % Seg Neuts % (Manual) Lymphocytes % (Manual) Monocytes % (Manual) Nucleated RBC % Seg Neutrophils # Seg Neutrophils # Man Lymphocytes # (Manual) Monocytes # (Manual) Eosinophils # (Manual) Basophils # (Manual) PT INR POC ABG pH 7.168 L 7.335 L ABG pH POC ABG pCO2 72.8 H POC ABG pO2 257 H 117 H ABG pO2 ABG O2 Saturation ABG Base Excess ABG Hemoglobin Oxyhemoglobin Sodium Potassium Chloride Carbon Dioxide BUN Creatinine Glucose POC Glucose 245 H Calcium Phosphorus Magnesium Iron TIBC Ferritin Total Bilirubin AST ALT Alkaline Phosphatase Total Creatine Kinase Troponin T C-Reactive Protein Total Protein Albumin Triglycerides HDL Cholesterol Miscellaneous Test Crossmatch 08/30/17 08/30/17 08/30/17 05:20 05:20 05:20 WBC 40.9 H* RBC 3.64 L Hgb Hct MCV MCH RDW 24.3 H Plt Count Lymph % (Auto) [place] % (Auto) [place] # Seg Neutrophils % Seg Neuts % (Manual) 80.0 H Lymphocytes % (Manual) 3.0 L Monocytes % (Manual) Nucleated RBC % 1.0 H Seg Neutrophils # Seg Neutrophils # Man 32.7 H Lymphocytes # (Manual) Monocytes # (Manual) Eosinophils # (Manual) Basophils # (Manual) PT INR POC ABG pH ABG pH POC ABG pCO2 POC ABG pO2 ABG pO2 ABG O2 Saturation ABG Base Excess ABG Hemoglobin Oxyhemoglobin Sodium Potassium Chloride Carbon Dioxide BUN 83 H Creatinine 2.9 H Glucose 334 H POC Glucose 309 H Calcium Phosphorus Magnesium Iron TIBC Ferritin Total Bilirubin AST ALT Alkaline Phosphatase Total Creatine Kinase Troponin T C-Reactive Protein Total Protein Albumin Triglycerides HDL Cholesterol Miscellaneous Test Crossmatch 08/30/17 08/30/17 08/31/17 12:18 17:36 00:17 WBC RBC Hgb Hct MCV MCH RDW Plt Count Lymph % (Auto) [place] % (Auto) [place] # Seg Neutrophils % Seg Neuts % (Manual) Lymphocytes % (Manual) Monocytes % (Manual) Nucleated RBC % Seg Neutrophils # Seg Neutrophils # Man Lymphocytes # (Manual) Monocytes # (Manual) Eosinophils # (Manual) Basophils # (Manual) PT INR POC ABG pH ABG pH POC ABG pCO2 POC ABG pO2 ABG pO2 ABG O2 Saturation ABG Base Excess ABG Hemoglobin Oxyhemoglobin Sodium Potassium Chloride Carbon Dioxide BUN Creatinine Glucose POC Glucose 273 H 293 H 360 H Calcium Phosphorus Magnesium Iron TIBC Ferritin Total Bilirubin AST ALT Alkaline Phosphatase Total Creatine Kinase Troponin T C-Reactive Protein Total Protein Albumin Triglycerides HDL Cholesterol Miscellaneous Test Crossmatch 08/31/17 08/31/17 08/31/17 05:30 05:30 05:32 WBC 29.9 H RBC 2.89 L Hgb 8.2 L Hct 24.7 L D MCV MCH RDW 24.4 H Plt Count Lymph % (Auto) [place] % (Auto) [place] # Seg Neutrophils % Seg Neuts % (Manual) Lymphocytes % (Manual) 2.0 L Monocytes % (Manual) Nucleated RBC % 2.0 H Seg Neutrophils # Seg Neutrophils # Man 18.5 H Lymphocytes # (Manual) 0.6 L Monocytes # (Manual) 0.9 H Eosinophils # (Manual) Basophils # (Manual) PT INR POC ABG pH ABG pH POC ABG pCO2 POC ABG pO2 ABG pO2 ABG O2 Saturation ABG Base Excess ABG Hemoglobin Oxyhemoglobin Sodium Potassium Chloride Carbon Dioxide BUN 62 H Creatinine 2.2 H Glucose 245 H POC Glucose 257 H Calcium Phosphorus 2.10 L D Magnesium 1.60 L Iron TIBC Ferritin Total Bilirubin AST ALT Alkaline Phosphatase Total Creatine Kinase Troponin T C-Reactive Protein Total Protein Albumin Triglycerides HDL Cholesterol Miscellaneous Test Crossmatch 08/31/17 08/31/17 08/31/17 11:56 12:05 18:14 WBC 32.5 H RBC 3.19 L Hgb 8.8 L Hct 27.9 L MCV MCH RDW 24.9 H Plt Count Lymph % (Auto) [place] % (Auto) [place] # Seg Neutrophils % Seg Neuts % (Manual) Lymphocytes % (Manual) 1.0 L Monocytes % (Manual) 12.0 H Nucleated RBC % 1.0 H Seg Neutrophils # Seg Neutrophils # Man 13.3 H Lymphocytes # (Manual) 0.3 L Monocytes # (Manual) 3.9 H Eosinophils # (Manual) Basophils # (Manual) PT INR POC ABG pH ABG pH POC ABG pCO2 POC ABG pO2 ABG pO2 ABG O2 Saturation ABG Base Excess ABG Hemoglobin Oxyhemoglobin Sodium Potassium Chloride Carbon Dioxide BUN Creatinine Glucose POC Glucose 245 H Calcium Phosphorus Magnesium Iron TIBC Ferritin Total Bilirubin AST ALT Alkaline Phosphatase Total Creatine Kinase Troponin T C-Reactive Protein Total Protein Albumin Triglycerides HDL Cholesterol Miscellaneous Test Crossmatch See Detail 08/31/17 08/31/17 08/31/17 18:14 18:15 18:22 WBC RBC Hgb Hct MCV MCH RDW Plt Count Lymph % (Auto) [place] % (Auto) [place] # Seg Neutrophils % Seg Neuts % (Manual) Lymphocytes % (Manual) Monocytes % (Manual) Nucleated RBC % Seg Neutrophils # Seg Neutrophils # Man Lymphocytes # (Manual) Monocytes # (Manual) Eosinophils # (Manual) Basophils # (Manual) PT 15.1 H INR POC ABG pH ABG pH POC ABG pCO2 POC ABG pO2 ABG pO2 ABG O2 Saturation ABG Base Excess ABG Hemoglobin Oxyhemoglobin Sodium 136 L Potassium Chloride Carbon Dioxide 21 L BUN 69 H Creatinine 2.3 H Glucose 227 H POC Glucose 240 H Calcium Phosphorus 2.40 L Magnesium 1.50 L Iron TIBC Ferritin Total Bilirubin AST 143 H ALT 114 H Alkaline Phosphatase 267 H Total Creatine Kinase Troponin T C-Reactive Protein Total Protein 4.1 L Albumin 1.8 L Triglycerides HDL Cholesterol Miscellaneous Test Crossmatch 08/31/17 09/01/17 09/01/17 23:53 05:00 05:00 WBC 33.9 H RBC 2.85 L Hgb 7.8 L Hct 24.8 L MCV MCH 27 L RDW 23.9 H Plt Count Lymph % (Auto) [place] % (Auto) [place] # Seg Neutrophils % Seg Neuts % (Manual) Lymphocytes % (Manual) 5.0 L Monocytes % (Manual) Nucleated RBC % Seg Neutrophils # Seg Neutrophils # Man 23.1 H Lymphocytes # (Manual) Monocytes # (Manual) Eosinophils # (Manual) Basophils # (Manual) PT INR POC ABG pH ABG pH POC ABG pCO2 POC ABG pO2 ABG pO2 ABG O2 Saturation ABG Base Excess ABG Hemoglobin Oxyhemoglobin Sodium Potassium Chloride Carbon Dioxide BUN 51 H Creatinine 1.8 H Glucose 195 H POC Glucose 301 H Calcium Phosphorus 1.70 L D Magnesium 1.60 L Iron TIBC Ferritin Total Bilirubin AST 80 H ALT 82 H Alkaline Phosphatase 243 H Total Creatine Kinase Troponin T C-Reactive Protein Total Protein 4.2 L Albumin 1.7 L Triglycerides HDL Cholesterol Miscellaneous Test Crossmatch 09/01/17 09/01/17 09/01/17 05:20 05:47 11:37 WBC RBC Hgb Hct MCV MCH RDW Plt Count Lymph % (Auto) [place] % (Auto) [place] # Seg Neutrophils % Seg Neuts % (Manual) Lymphocytes % (Manual) Monocytes % (Manual) Nucleated RBC % Seg Neutrophils # Seg Neutrophils # Man Lymphocytes # (Manual) Monocytes # (Manual) Eosinophils # (Manual) Basophils # (Manual) PT INR POC ABG pH ABG pH 7.348 L POC ABG pCO2 POC ABG pO2 ABG pO2 70.2 L ABG O2 Saturation ABG Base Excess ABG Hemoglobin 7.5 L Oxyhemoglobin Sodium Potassium Chloride Carbon Dioxide BUN Creatinine Glucose POC Glucose 230 H 254 H Calcium Phosphorus Magnesium Iron TIBC Ferritin Total Bilirubin AST ALT Alkaline Phosphatase Total Creatine Kinase Troponin T C-Reactive Protein Total Protein Albumin Triglycerides HDL Cholesterol Miscellaneous Test Crossmatch 09/01/17 09/01/17 09/02/17 17:39 23:14 04:55 WBC RBC Hgb Hct MCV MCH RDW Plt Count Lymph % (Auto) [place] % (Auto) [place] # Seg Neutrophils % Seg Neuts % (Manual) Lymphocytes % (Manual) Monocytes % (Manual) Nucleated RBC % Seg Neutrophils # Seg Neutrophils # Man Lymphocytes # (Manual) Monocytes # (Manual) Eosinophils # (Manual) Basophils # (Manual) PT INR POC ABG pH ABG pH POC ABG pCO2 POC ABG pO2 ABG pO2 124.8 H ABG O2 Saturation ABG Base Excess -2.9 L ABG Hemoglobin 5.8 L Oxyhemoglobin Sodium Potassium Chloride Carbon Dioxide BUN Creatinine Glucose POC Glucose 297 H 291 H Calcium Phosphorus Magnesium Iron TIBC Ferritin Total Bilirubin AST ALT Alkaline Phosphatase Total Creatine Kinase Troponin T C-Reactive Protein Total Protein Albumin Triglycerides HDL Cholesterol Miscellaneous Test Crossmatch 09/02/17 09/02/17 09/02/17 05:31 06:10 11:58 WBC RBC Hgb Hct MCV MCH RDW Plt Count Lymph % (Auto) [place] % (Auto) [place] # Seg Neutrophils % Seg Neuts % (Manual) Lymphocytes % (Manual) Monocytes % (Manual) Nucleated RBC % Seg Neutrophils # Seg Neutrophils # Man Lymphocytes # (Manual) Monocytes # (Manual) Eosinophils # (Manual) Basophils # (Manual) PT INR POC ABG pH ABG pH POC ABG pCO2 POC ABG pO2 ABG pO2 ABG O2 Saturation ABG Base Excess ABG Hemoglobin Oxyhemoglobin Sodium Potassium Chloride Carbon Dioxide BUN 68 H Creatinine 2.2 H Glucose 369 H POC Glucose 245 H 333 H Calcium 8.2 L Phosphorus Magnesium Iron TIBC Ferritin Total Bilirubin AST ALT Alkaline Phosphatase Total Creatine Kinase Troponin T C-Reactive Protein Total Protein Albumin Triglycerides HDL Cholesterol Miscellaneous Test Crossmatch 09/02/17 09/02/17 09/03/17 15:37 23:50 04:00 WBC RBC Hgb Hct MCV MCH RDW Plt Count Lymph % (Auto) [place] % (Auto) [place] # Seg Neutrophils % Seg Neuts % (Manual) Lymphocytes % (Manual) Monocytes % (Manual) Nucleated RBC % Seg Neutrophils # Seg Neutrophils # Man Lymphocytes # (Manual) Monocytes # (Manual) Eosinophils # (Manual) Basophils # (Manual) PT INR POC ABG pH ABG pH POC ABG pCO2 POC ABG pO2 ABG pO2 ABG O2 Saturation ABG Base Excess ABG Hemoglobin Oxyhemoglobin Sodium Potassium Chloride Carbon Dioxide BUN 59 H Creatinine 1.9 H Glucose 231 H POC Glucose 314 H 240 H Calcium 8.0 L Phosphorus Magnesium Iron TIBC Ferritin Total Bilirubin AST ALT Alkaline Phosphatase 265 H Total Creatine Kinase Troponin T C-Reactive Protein Total Protein 4.4 L Albumin 1.7 L Triglycerides 180 H HDL Cholesterol Miscellaneous Test Crossmatch 09/03/17 09/03/17 09/03/17 05:00 05:32 11:52 WBC 41.5 H* RBC 2.46 L Hgb 6.9 L Hct 21.3 L MCV MCH RDW 24.9 H Plt Count Lymph % (Auto) [place] % (Auto) [place] # Seg Neutrophils % Seg Neuts % (Manual) Lymphocytes % (Manual) 3.0 L Monocytes % (Manual) 9.5 H Nucleated RBC % 1.5 H Seg Neutrophils # Seg Neutrophils # Man 28.8 H Lymphocytes # (Manual) Monocytes # (Manual) 3.9 H Eosinophils # (Manual) Basophils # (Manual) PT INR POC ABG pH ABG pH POC ABG pCO2 POC ABG pO2 ABG pO2 ABG O2 Saturation ABG Base Excess ABG Hemoglobin Oxyhemoglobin Sodium Potassium Chloride Carbon Dioxide BUN Creatinine Glucose POC Glucose 188 H 285 H Calcium Phosphorus Magnesium Iron TIBC Ferritin Total Bilirubin AST ALT Alkaline Phosphatase Total Creatine Kinase Troponin T C-Reactive Protein Total Protein Albumin Triglycerides HDL Cholesterol Miscellaneous Test Crossmatch 09/03/17 09/03/17 09/03/17 16:55 17:44 23:56 WBC RBC Hgb Hct MCV MCH RDW Plt Count Lymph % (Auto) [place] % (Auto) [place] # Seg Neutrophils % Seg Neuts % (Manual) Lymphocytes % (Manual) Monocytes % (Manual) Nucleated RBC % Seg Neutrophils # Seg Neutrophils # Man Lymphocytes # (Manual) Monocytes # (Manual) Eosinophils # (Manual) Basophils # (Manual) PT INR POC ABG pH ABG pH POC ABG pCO2 POC ABG pO2 ABG pO2 ABG O2 Saturation ABG Base Excess ABG Hemoglobin Oxyhemoglobin Sodium Potassium Chloride Carbon Dioxide BUN Creatinine Glucose POC Glucose 217 H 193 H Calcium Phosphorus Magnesium Iron TIBC Ferritin Total Bilirubin AST ALT Alkaline Phosphatase Total Creatine Kinase Troponin T C-Reactive Protein Total Protein Albumin Triglycerides HDL Cholesterol Miscellaneous Test Crossmatch See Detail 09/03/17 09/04/17 09/04/17 Unknown 03:47 04:32 WBC 44.7 H* RBC 3.12 L Hgb 8.7 L Hct 26.7 L MCV MCH RDW 23.5 H Plt Count Lymph % (Auto) [place] % (Auto) [place] # Seg Neutrophils % Seg Neuts % (Manual) Lymphocytes % (Manual) 4.0 L Monocytes % (Manual) Nucleated RBC % 2.0 H Seg Neutrophils # Seg Neutrophils # Man 30.8 H Lymphocytes # (Manual) Monocytes # (Manual) 2.2 H Eosinophils # (Manual) Basophils # (Manual) PT INR POC ABG pH ABG pH POC ABG pCO2 POC ABG pO2 ABG pO2 133.4 H 135.0 H ABG O2 Saturation ABG Base Excess -2.5 L ABG Hemoglobin 5.8 L 7.9 L Oxyhemoglobin Sodium Potassium Chloride Carbon Dioxide BUN Creatinine Glucose POC Glucose Calcium Phosphorus Magnesium Iron TIBC Ferritin Total Bilirubin AST ALT Alkaline Phosphatase Total Creatine Kinase Troponin T C-Reactive Protein Total Protein Albumin Triglycerides HDL Cholesterol Miscellaneous Test Crossmatch 09/04/17 09/04/17 09/04/17 04:32 05:48 10:43 WBC RBC Hgb Hct MCV MCH RDW Plt Count Lymph % (Auto) [place] % (Auto) [place] # Seg Neutrophils % Seg Neuts % (Manual) Lymphocytes % (Manual) Monocytes % (Manual) Nucleated RBC % Seg Neutrophils # Seg Neutrophils # Man Lymphocytes # (Manual) Monocytes # (Manual) Eosinophils # (Manual) Basophils # (Manual) PT INR POC ABG pH ABG pH POC ABG pCO2 POC ABG pO2 ABG pO2 ABG O2 Saturation ABG Base Excess ABG Hemoglobin Oxyhemoglobin Sodium 136 L Potassium 5.2 H D Chloride 94.2 L Carbon Dioxide BUN 71 H Creatinine 2.3 H Glucose 235 H POC Glucose 329 H Calcium 8.3 L Phosphorus Magnesium Iron TIBC Ferritin Total Bilirubin AST ALT Alkaline Phosphatase Total Creatine Kinase Troponin T C-Reactive Protein Total Protein Albumin Triglycerides HDL Cholesterol Miscellaneous Test Flexitest 1 H Crossmatch 09/04/17 09/04/17 09/05/17 12:38 17:30 00:15 WBC RBC Hgb Hct MCV MCH RDW Plt Count Lymph % (Auto) [place] % (Auto) [place] # Seg Neutrophils % Seg Neuts % (Manual) Lymphocytes % (Manual) Monocytes % (Manual) Nucleated RBC % Seg Neutrophils # Seg Neutrophils # Man Lymphocytes # (Manual) Monocytes # (Manual) Eosinophils # (Manual) Basophils # (Manual) PT INR POC ABG pH ABG pH POC ABG pCO2 POC ABG pO2 ABG pO2 ABG O2 Saturation ABG Base Excess ABG Hemoglobin Oxyhemoglobin Sodium Potassium Chloride Carbon Dioxide BUN Creatinine Glucose POC Glucose 444 H 331 H 362 H Calcium Phosphorus Magnesium Iron TIBC Ferritin Total Bilirubin AST ALT Alkaline Phosphatase Total Creatine Kinase Troponin T C-Reactive Protein Total Protein Albumin Triglycerides HDL Cholesterol Miscellaneous Test Crossmatch 09/05/17 09/05/17 09/05/17 03:55 03:55 12:12 WBC 35.3 H RBC 2.87 L Hgb 8.1 L Hct 24.6 L MCV MCH RDW 23.3 H Plt Count Lymph % (Auto) [place] % (Auto) [place] # Seg Neutrophils % Seg Neuts % (Manual) 89.5 H Lymphocytes % (Manual) 3.0 L Monocytes % (Manual) Nucleated RBC % 2.5 H Seg Neutrophils # Seg Neutrophils # Man 31.6 H Lymphocytes # (Manual) 1.1 L Monocytes # (Manual) Eosinophils # (Manual) Basophils # (Manual) PT INR POC ABG pH ABG pH POC ABG pCO2 POC ABG pO2 ABG pO2 ABG O2 Saturation ABG Base Excess ABG Hemoglobin Oxyhemoglobin Sodium 136 L Potassium Chloride 94.7 L Carbon Dioxide BUN 55 H Creatinine 1.8 H Glucose 193 H POC Glucose 344 H Calcium 8.1 L Phosphorus Magnesium Iron TIBC Ferritin Total Bilirubin AST ALT Alkaline Phosphatase Total Creatine Kinase Troponin T C-Reactive Protein Total Protein Albumin Triglycerides HDL Cholesterol Miscellaneous Test Crossmatch 09/05/17 09/05/17 09/05/17 14:32 15:32 16:41 WBC RBC Hgb Hct MCV MCH RDW Plt Count Lymph % (Auto) [place] % (Auto) [place] # Seg Neutrophils % Seg Neuts % (Manual) Lymphocytes % (Manual) Monocytes % (Manual) Nucleated RBC % Seg Neutrophils # Seg Neutrophils # Man Lymphocytes # (Manual) Monocytes # (Manual) Eosinophils # (Manual) Basophils # (Manual) PT INR POC ABG pH ABG pH POC ABG pCO2 POC ABG pO2 ABG pO2 ABG O2 Saturation ABG Base Excess ABG Hemoglobin Oxyhemoglobin Sodium Potassium Chloride Carbon Dioxide BUN Creatinine Glucose POC Glucose 265 H 145 H 188 H Calcium Phosphorus Magnesium Iron TIBC Ferritin Total Bilirubin AST ALT Alkaline Phosphatase Total Creatine Kinase Troponin T C-Reactive Protein Total Protein Albumin Triglycerides HDL Cholesterol Miscellaneous Test Crossmatch 09/05/17 09/05/17 09/05/17 17:28 18:38 20:10 WBC RBC Hgb Hct MCV MCH RDW Plt Count Lymph % (Auto) [place] % (Auto) [place] # Seg Neutrophils % Seg Neuts % (Manual) Lymphocytes % (Manual) Monocytes % (Manual) Nucleated RBC % Seg Neutrophils # Seg Neutrophils # Man Lymphocytes # (Manual) Monocytes # (Manual) Eosinophils # (Manual) Basophils # (Manual) PT INR POC ABG pH ABG pH POC ABG pCO2 POC ABG pO2 ABG pO2 ABG O2 Saturation ABG Base Excess ABG Hemoglobin Oxyhemoglobin Sodium Potassium Chloride Carbon Dioxide BUN Creatinine Glucose POC Glucose 246 H 271 H 165 H Calcium Phosphorus Magnesium Iron TIBC Ferritin Total Bilirubin AST ALT Alkaline Phosphatase Total Creatine Kinase Troponin T C-Reactive Protein Total Protein Albumin Triglycerides HDL Cholesterol Miscellaneous Test Crossmatch 09/05/17 09/05/17 09/06/17 21:06 23:07 00:10 WBC RBC Hgb Hct MCV MCH RDW Plt Count Lymph % (Auto) [place] % (Auto) [place] # Seg Neutrophils % Seg Neuts % (Manual) Lymphocytes % (Manual) Monocytes % (Manual) Nucleated RBC % Seg Neutrophils # Seg Neutrophils # Man Lymphocytes # (Manual) Monocytes # (Manual) Eosinophils # (Manual) Basophils # (Manual) PT INR POC ABG pH ABG pH POC ABG pCO2 POC ABG pO2 ABG pO2 ABG O2 Saturation ABG Base Excess ABG Hemoglobin Oxyhemoglobin Sodium Potassium Chloride Carbon Dioxide BUN Creatinine Glucose POC Glucose 134 H 135 H 147 H Calcium Phosphorus Magnesium Iron TIBC Ferritin Total Bilirubin AST ALT Alkaline Phosphatase Total Creatine Kinase Troponin T C-Reactive Protein Total Protein Albumin Triglycerides HDL Cholesterol Miscellaneous Test Crossmatch 09/06/17 09/06/17 09/06/17 01:08 02:01 03:08 WBC RBC Hgb Hct MCV MCH RDW Plt Count Lymph % (Auto) [place] % (Auto) [place] # Seg Neutrophils % Seg Neuts % (Manual) Lymphocytes % (Manual) Monocytes % (Manual) Nucleated RBC % Seg Neutrophils # Seg Neutrophils # Man Lymphocytes # (Manual) Monocytes # (Manual) Eosinophils # (Manual) Basophils # (Manual) PT INR POC ABG pH ABG pH POC ABG pCO2 POC ABG pO2 ABG pO2 ABG O2 Saturation ABG Base Excess ABG Hemoglobin Oxyhemoglobin Sodium Potassium Chloride Carbon Dioxide BUN Creatinine Glucose POC Glucose 133 H 146 H 135 H Calcium Phosphorus Magnesium Iron TIBC Ferritin Total Bilirubin AST ALT Alkaline Phosphatase Total Creatine Kinase Troponin T C-Reactive Protein Total Protein Albumin Triglycerides HDL Cholesterol Miscellaneous Test Crossmatch 09/06/17 09/06/17 09/06/17 05:30 05:30 05:30 WBC 38.6 H RBC 2.95 L Hgb 8.3 L Hct 25.3 L MCV MCH RDW 22.2 H Plt Count Lymph % (Auto) [place] % (Auto) [place] # Seg Neutrophils % Seg Neuts % (Manual) Lymphocytes % (Manual) 2.0 L Monocytes % (Manual) Nucleated RBC % 5.0 H Seg Neutrophils # Seg Neutrophils # Man 25.9 H Lymphocytes # (Manual) 0.8 L Monocytes # (Manual) 1.9 H Eosinophils # (Manual) Basophils # (Manual) PT INR POC ABG pH ABG pH POC ABG pCO2 POC ABG pO2 ABG pO2 ABG O2 Saturation ABG Base Excess ABG Hemoglobin Oxyhemoglobin Sodium 135 L Potassium Chloride 93.5 L Carbon Dioxide BUN 82 H Creatinine 2.3 H Glucose 148 H POC Glucose Calcium Phosphorus Magnesium Iron TIBC Ferritin Total Bilirubin AST ALT Alkaline Phosphatase Total Creatine Kinase Troponin T C-Reactive Protein 2.80 H Total Protein Albumin Triglycerides HDL Cholesterol Miscellaneous Test Crossmatch 09/06/17 09/06/17 09/06/17 05:48 08:04 09:06 WBC RBC Hgb Hct MCV MCH RDW Plt Count Lymph % (Auto) [place] % (Auto) [place] # Seg Neutrophils % Seg Neuts % (Manual) Lymphocytes % (Manual) Monocytes % (Manual) Nucleated RBC % Seg Neutrophils # Seg Neutrophils # Man Lymphocytes # (Manual) Monocytes # (Manual) Eosinophils # (Manual) Basophils # (Manual) PT INR POC ABG pH ABG pH POC ABG pCO2 POC ABG pO2 ABG pO2 ABG O2 Saturation ABG Base Excess ABG Hemoglobin Oxyhemoglobin Sodium Potassium Chloride Carbon Dioxide BUN Creatinine Glucose POC Glucose 152 H 164 H 172 H Calcium Phosphorus Magnesium Iron TIBC Ferritin Total Bilirubin AST ALT Alkaline Phosphatase Total Creatine Kinase Troponin T C-Reactive Protein Total Protein Albumin Triglycerides HDL Cholesterol Miscellaneous Test Crossmatch 09/06/17 09/06/17 09/06/17 09:57 10:19 10:57 WBC RBC Hgb Hct MCV MCH RDW Plt Count Lymph % (Auto) [place] % (Auto) [place] # Seg Neutrophils % Seg Neuts % (Manual) Lymphocytes % (Manual) Monocytes % (Manual) Nucleated RBC % Seg Neutrophils # Seg Neutrophils # Man Lymphocytes # (Manual) Monocytes # (Manual) Eosinophils # (Manual) Basophils # (Manual) PT INR POC ABG pH ABG pH POC ABG pCO2 POC ABG pO2 ABG pO2 ABG O2 Saturation ABG Base Excess ABG Hemoglobin Oxyhemoglobin Sodium Potassium Chloride Carbon Dioxide BUN Creatinine Glucose POC Glucose 186 H 162 H Calcium Phosphorus Magnesium Iron TIBC Ferritin Total Bilirubin AST ALT Alkaline Phosphatase Total Creatine Kinase Troponin T C-Reactive Protein Total Protein Albumin Triglycerides HDL Cholesterol Miscellaneous Test Flexitest 1 H Crossmatch 09/06/17 09/06/17 09/06/17 13:12 13:40 17:36 WBC RBC Hgb 8.9 L Hct 28.5 L MCV MCH RDW Plt Count Lymph % (Auto) [place] % (Auto) [place] # Seg Neutrophils % Seg Neuts % (Manual) Lymphocytes % (Manual) Monocytes % (Manual) Nucleated RBC % Seg Neutrophils # Seg Neutrophils # Man Lymphocytes # (Manual) Monocytes # (Manual) Eosinophils # (Manual) Basophils # (Manual) PT INR POC ABG pH ABG pH POC ABG pCO2 POC ABG pO2 ABG pO2 ABG O2 Saturation ABG Base Excess ABG Hemoglobin Oxyhemoglobin Sodium Potassium Chloride Carbon Dioxide BUN Creatinine Glucose POC Glucose 166 H 161 H Calcium Phosphorus Magnesium Iron TIBC Ferritin Total Bilirubin AST ALT Alkaline Phosphatase Total Creatine Kinase Troponin T C-Reactive Protein Total Protein Albumin Triglycerides HDL Cholesterol Miscellaneous Test Crossmatch 09/07/17 09/07/17 09/07/17 00:13 03:50 03:50 WBC 47.0 H* RBC 2.81 L Hgb 8.1 L Hct 24.1 L MCV MCH RDW 22.5 H Plt Count Lymph % (Auto) [place] % (Auto) [place] # Seg Neutrophils % Seg Neuts % (Manual) Lymphocytes % (Manual) 9.0 L Monocytes % (Manual) Nucleated RBC % 6.0 H Seg Neutrophils # Seg Neutrophils # Man 27.3 H Lymphocytes # (Manual) Monocytes # (Manual) 0.9 H Eosinophils # (Manual) 1.9 H Basophils # (Manual) PT INR POC ABG pH ABG pH POC ABG pCO2 POC ABG pO2 ABG pO2 ABG O2 Saturation ABG Base Excess ABG Hemoglobin Oxyhemoglobin Sodium 136 L Potassium Chloride 96.3 L Carbon Dioxide BUN 61 H Creatinine 1.7 H Glucose 132 H POC Glucose 183 H Calcium 7.8 L Phosphorus Magnesium Iron TIBC Ferritin Total Bilirubin AST ALT Alkaline Phosphatase Total Creatine Kinase Troponin T C-Reactive Protein Total Protein Albumin Triglycerides HDL Cholesterol Miscellaneous Test Crossmatch 09/07/17 09/07/17 09/07/17 05:12 05:23 11:48 WBC RBC Hgb Hct MCV MCH RDW Plt Count Lymph % (Auto) [place] % (Auto) [place] # Seg Neutrophils % Seg Neuts % (Manual) Lymphocytes % (Manual) Monocytes % (Manual) Nucleated RBC % Seg Neutrophils # Seg Neutrophils # Man Lymphocytes # (Manual) Monocytes # (Manual) Eosinophils # (Manual) Basophils # (Manual) PT INR POC ABG pH ABG pH POC ABG pCO2 POC ABG pO2 ABG pO2 ABG O2 Saturation ABG Base Excess ABG Hemoglobin 7.7 L Oxyhemoglobin 94.8 L Sodium Potassium Chloride Carbon Dioxide BUN Creatinine Glucose POC Glucose 162 H 200 H Calcium Phosphorus Magnesium Iron TIBC Ferritin Total Bilirubin AST ALT Alkaline Phosphatase Total Creatine Kinase Troponin T C-Reactive Protein Total Protein Albumin Triglycerides HDL Cholesterol Miscellaneous Test Crossmatch 09/07/17 09/07/17 09/08/17 17:07 18:21 00:06 WBC RBC Hgb Hct MCV MCH RDW Plt Count Lymph % (Auto) [place] % (Auto) [place] # Seg Neutrophils % Seg Neuts % (Manual) Lymphocytes % (Manual) Monocytes % (Manual) Nucleated RBC % Seg Neutrophils # Seg Neutrophils # Man Lymphocytes # (Manual) Monocytes # (Manual) Eosinophils # (Manual) Basophils # (Manual) PT INR POC ABG pH ABG pH POC ABG pCO2 POC ABG pO2 ABG pO2 ABG O2 Saturation ABG Base Excess ABG Hemoglobin Oxyhemoglobin Sodium Potassium Chloride Carbon Dioxide BUN Creatinine Glucose POC Glucose 181 H 168 H Calcium Phosphorus Magnesium Iron TIBC Ferritin Total Bilirubin AST ALT Alkaline Phosphatase Total Creatine Kinase Troponin T C-Reactive Protein Total Protein Albumin Triglycerides HDL Cholesterol Miscellaneous Test Crossmatch See Detail 09/08/17 09/08/17 09/08/17 04:05 04:05 04:41 WBC 49.7 H* RBC 2.58 L Hgb 7.3 L Hct 22.7 L MCV MCH RDW 22.5 H Plt Count Lymph % (Auto) [place] % (Auto) [place] # Seg Neutrophils % Seg Neuts % (Manual) 90.5 H Lymphocytes % (Manual) 1.5 L Monocytes % (Manual) Nucleated RBC % Seg Neutrophils # Seg Neutrophils # Man 45.0 H Lymphocytes # (Manual) 0.7 L Monocytes # (Manual) 1.7 H Eosinophils # (Manual) Basophils # (Manual) PT INR POC ABG pH ABG pH POC ABG pCO2 POC ABG pO2 ABG pO2 ABG O2 Saturation ABG Base Excess ABG Hemoglobin Oxyhemoglobin Sodium 132 L Potassium Chloride 92.1 L Carbon Dioxide BUN 82 H Creatinine 2.2 H Glucose 162 H POC Glucose 235 H Calcium 8.3 L Phosphorus 5.20 H D Magnesium Iron TIBC Ferritin Total Bilirubin AST ALT Alkaline Phosphatase 199 H Total Creatine Kinase Troponin T C-Reactive Protein Total Protein 4.5 L Albumin 1.7 L Triglycerides HDL Cholesterol Miscellaneous Test Crossmatch 09/08/17 09/08/17 09/08/17 09:21 11:52 17:38 WBC RBC Hgb Hct MCV MCH RDW Plt Count Lymph % (Auto) [place] % (Auto) [place] # Seg Neutrophils % Seg Neuts % (Manual) Lymphocytes % (Manual) Monocytes % (Manual) Nucleated RBC % Seg Neutrophils # Seg Neutrophils # Man Lymphocytes # (Manual) Monocytes # (Manual) Eosinophils # (Manual) Basophils # (Manual) PT INR POC ABG pH ABG pH POC ABG pCO2 POC ABG pO2 ABG pO2 218.5 H ABG O2 Saturation 99.3 H ABG Base Excess -3.5 L ABG Hemoglobin 7.7 L Oxyhemoglobin Sodium Potassium Chloride Carbon Dioxide BUN Creatinine Glucose POC Glucose 220 H 194 H Calcium Phosphorus Magnesium Iron TIBC Ferritin Total Bilirubin AST ALT Alkaline Phosphatase Total Creatine Kinase Troponin T C-Reactive Protein Total Protein Albumin Triglycerides HDL Cholesterol Miscellaneous Test Crossmatch 09/09/17 09/09/17 09/09/17 00:24 03:37 03:37 WBC 33.5 H RBC 2.36 L Hgb 6.7 L Hct 20.9 L MCV MCH RDW 22.7 H Plt Count Lymph % (Auto) [place] % (Auto) [place] # Seg Neutrophils % Seg Neuts % (Manual) Lymphocytes % (Manual) Monocytes % (Manual) Nucleated RBC % Seg Neutrophils # Seg Neutrophils # Man Lymphocytes # (Manual) Monocytes # (Manual) Eosinophils # (Manual) Basophils # (Manual) PT INR POC ABG pH ABG pH POC ABG pCO2 POC ABG pO2 ABG pO2 ABG O2 Saturation ABG Base Excess ABG Hemoglobin Oxyhemoglobin Sodium 132 L Potassium Chloride 91.6 L Carbon Dioxide 21 L BUN 101 H Creatinine 2.6 H Glucose 156 H POC Glucose 182 H Calcium 8.3 L Phosphorus 5.90 H Magnesium 2.60 H Iron TIBC Ferritin Total Bilirubin AST ALT Alkaline Phosphatase Total Creatine Kinase Troponin T C-Reactive Protein Total Protein Albumin Triglycerides HDL Cholesterol Miscellaneous Test Crossmatch 09/09/17 09/09/17 09/09/17 05:29 12:03 18:05 WBC RBC Hgb Hct MCV MCH RDW Plt Count Lymph % (Auto) [place] % (Auto) [place] # Seg Neutrophils % Seg Neuts % (Manual) Lymphocytes % (Manual) Monocytes % (Manual) Nucleated RBC % Seg Neutrophils # Seg Neutrophils # Man Lymphocytes # (Manual) Monocytes # (Manual) Eosinophils # (Manual) Basophils # (Manual) PT INR POC ABG pH ABG pH POC ABG pCO2 POC ABG pO2 ABG pO2 ABG O2 Saturation ABG Base Excess ABG Hemoglobin Oxyhemoglobin Sodium Potassium Chloride Carbon Dioxide BUN Creatinine Glucose POC Glucose 168 H 143 H 173 H Calcium Phosphorus Magnesium Iron TIBC Ferritin Total Bilirubin AST ALT Alkaline Phosphatase Total Creatine Kinase Troponin T C-Reactive Protein Total Protein Albumin Triglycerides HDL Cholesterol Miscellaneous Test Crossmatch 09/09/17 09/09/17 09/10/17 23:30 Unknown 05:04 WBC RBC Hgb Hct MCV MCH RDW Plt Count Lymph % (Auto) [place] % (Auto) [place] # Seg Neutrophils % Seg Neuts % (Manual) Lymphocytes % (Manual) Monocytes % (Manual) Nucleated RBC % Seg Neutrophils # Seg Neutrophils # Man Lymphocytes # (Manual) Monocytes # (Manual) Eosinophils # (Manual) Basophils # (Manual) PT INR POC ABG pH ABG pH 7.323 L POC ABG pCO2 POC ABG pO2 ABG pO2 94.1 H ABG O2 Saturation ABG Base Excess -4.8 L ABG Hemoglobin 8.0 L Oxyhemoglobin 94.9 L Sodium Potassium Chloride Carbon Dioxide BUN Creatinine Glucose POC Glucose 212 H 155 H Calcium Phosphorus Magnesium Iron TIBC Ferritin Total Bilirubin AST ALT Alkaline Phosphatase Total Creatine Kinase Troponin T C-Reactive Protein Total Protein Albumin Triglycerides HDL Cholesterol Miscellaneous Test Crossmatch 09/10/17 09/10/17 09/10/17 07:00 09:55 12:22 WBC 24.7 H RBC 2.62 L Hgb 7.5 L Hct 22.5 L MCV MCH RDW 20.8 H Plt Count Lymph % (Auto) [place] % (Auto) [place] # Seg Neutrophils % Seg Neuts % (Manual) Lymphocytes % (Manual) Monocytes % (Manual) Nucleated RBC % Seg Neutrophils # Seg Neutrophils # Man Lymphocytes # (Manual) Monocytes # (Manual) Eosinophils # (Manual) Basophils # (Manual) PT INR POC ABG pH ABG pH POC ABG pCO2 POC ABG pO2 ABG pO2 ABG O2 Saturation ABG Base Excess ABG Hemoglobin Oxyhemoglobin Sodium Potassium Chloride 97.9 L Carbon Dioxide BUN 78 H Creatinine 2.0 H Glucose 126 H POC Glucose 183 H Calcium 8.2 L Phosphorus Magnesium Iron TIBC Ferritin Total Bilirubin AST ALT Alkaline Phosphatase Total Creatine Kinase Troponin T C-Reactive Protein Total Protein Albumin Triglycerides HDL Cholesterol Miscellaneous Test Crossmatch 09/11/17 09/11/17 09/11/17 00:08 03:50 05:28 WBC 21.6 H RBC 2.52 L Hgb 7.4 L Hct 22.2 L MCV MCH RDW 21.5 H Plt Count Lymph % (Auto) [place] % (Auto) [place] # Seg Neutrophils % Seg Neuts % (Manual) 92.0 H Lymphocytes % (Manual) 3.0 L Monocytes % (Manual) Nucleated RBC % Seg Neutrophils # Seg Neutrophils # Man 19.9 H Lymphocytes # (Manual) 0.6 L Monocytes # (Manual) Eosinophils # (Manual) Basophils # (Manual) PT INR POC ABG pH ABG pH POC ABG pCO2 POC ABG pO2 ABG pO2 ABG O2 Saturation ABG Base Excess ABG Hemoglobin Oxyhemoglobin Sodium Potassium Chloride Carbon Dioxide BUN Creatinine Glucose POC Glucose 213 H 181 H Calcium Phosphorus Magnesium Iron TIBC Ferritin Total Bilirubin AST ALT Alkaline Phosphatase Total Creatine Kinase Troponin T C-Reactive Protein Total Protein Albumin Triglycerides HDL Cholesterol Miscellaneous Test Crossmatch 09/11/17 09/11/17 09/11/17 11:55 17:56 23:12 WBC RBC Hgb Hct MCV MCH RDW Plt Count Lymph % (Auto) [place] % (Auto) [place] # Seg Neutrophils % Seg Neuts % (Manual) Lymphocytes % (Manual) Monocytes % (Manual) Nucleated RBC % Seg Neutrophils # Seg Neutrophils # Man Lymphocytes # (Manual) Monocytes # (Manual) Eosinophils # (Manual) Basophils # (Manual) PT INR POC ABG pH ABG pH POC ABG pCO2 POC ABG pO2 ABG pO2 ABG O2 Saturation ABG Base Excess ABG Hemoglobin Oxyhemoglobin Sodium Potassium Chloride Carbon Dioxide 21 L BUN 80 H Creatinine 2.1 H Glucose 170 H POC Glucose 277 H 206 H Calcium 8.0 L Phosphorus Magnesium Iron TIBC Ferritin Total Bilirubin AST ALT Alkaline Phosphatase Total Creatine Kinase Troponin T C-Reactive Protein Total Protein Albumin Triglycerides HDL Cholesterol Miscellaneous Test Crossmatch 09/11/17 09/12/17 09/12/17 23:36 05:25 05:25 WBC 17.4 H RBC 2.29 L Hgb 6.7 L Hct 20.4 L MCV MCH RDW 21.2 H Plt Count Lymph % (Auto) [place] % (Auto) [place] # Seg Neutrophils % Seg Neuts % (Manual) 79.0 H Lymphocytes % (Manual) 5.0 L Monocytes % (Manual) Nucleated RBC % 1.0 H Seg Neutrophils # Seg Neutrophils # Man 13.7 H Lymphocytes # (Manual) 0.9 L Monocytes # (Manual) 1.2 H Eosinophils # (Manual) Basophils # (Manual) PT INR POC ABG pH ABG pH POC ABG pCO2 POC ABG pO2 ABG pO2 ABG O2 Saturation ABG Base Excess ABG Hemoglobin Oxyhemoglobin Sodium Potassium Chloride Carbon Dioxide BUN Creatinine Glucose POC Glucose 190 H Calcium Phosphorus Magnesium Iron 22 L TIBC 81 L Ferritin Total Bilirubin AST ALT Alkaline Phosphatase Total Creatine Kinase Troponin T C-Reactive Protein Total Protein Albumin Triglycerides HDL Cholesterol Miscellaneous Test Crossmatch 10/09/12/17 09/12/17 05:25 05:36 09:14 WBC RBC Hgb Hct MCV MCH RDW Plt Count Lymph % (Auto) [place] % (Auto) [place] # Seg Neutrophils % Seg Neuts % (Manual) Lymphocytes % (Manual) Monocytes % (Manual) Nucleated RBC % Seg Neutrophils # Seg Neutrophils # Man Lymphocytes # (Manual) Monocytes # (Manual) Eosinophils # (Manual) Basophils # (Manual) PT INR POC ABG pH ABG pH POC ABG pCO2 POC ABG pO2 ABG pO2 ABG O2 Saturation ABG Base Excess ABG Hemoglobin Oxyhemoglobin Sodium Potassium Chloride Carbon Dioxide BUN Creatinine Glucose POC Glucose 141 H Calcium Phosphorus Magnesium Iron TIBC Ferritin > 2000.0 H Total Bilirubin AST ALT Alkaline Phosphatase Total Creatine Kinase Troponin T C-Reactive Protein Total Protein Albumin Triglycerides HDL Cholesterol Miscellaneous Test Crossmatch See Detail 09/12/17 09/12/17 09/12/17 11:18 15:22 17:18 WBC RBC Hgb 8.5 L Hct 25.4 L MCV MCH RDW Plt Count Lymph % (Auto) [place] % (Auto) [place] # Seg Neutrophils % Seg Neuts % (Manual) Lymphocytes % (Manual) Monocytes % (Manual) Nucleated RBC % Seg Neutrophils # Seg Neutrophils # Man Lymphocytes # (Manual) Monocytes # (Manual) Eosinophils # (Manual) Basophils # (Manual) PT INR POC ABG pH ABG pH POC ABG pCO2 POC ABG pO2 ABG pO2 ABG O2 Saturation ABG Base Excess ABG Hemoglobin Oxyhemoglobin Sodium Potassium Chloride Carbon Dioxide BUN Creatinine Glucose POC Glucose 262 H 193 H Calcium Phosphorus Magnesium Iron TIBC Ferritin Total Bilirubin AST ALT Alkaline Phosphatase Total Creatine Kinase Troponin T C-Reactive Protein Total Protein Albumin Triglycerides HDL Cholesterol Miscellaneous Test Crossmatch 09/13/17 09/13/17 09/13/17 00:05 06:25 11:36 WBC RBC Hgb Hct MCV MCH RDW Plt Count Lymph % (Auto) [place] % (Auto) [place] # Seg Neutrophils % Seg Neuts % (Manual) Lymphocytes % (Manual) Monocytes % (Manual) Nucleated RBC % Seg Neutrophils # Seg Neutrophils # Man Lymphocytes # (Manual) Monocytes # (Manual) Eosinophils # (Manual) Basophils # (Manual) PT INR POC ABG pH 7.347 L ABG pH POC ABG pCO2 34.3 L POC ABG pO2 134 H ABG pO2 ABG O2 Saturation ABG Base Excess ABG Hemoglobin Oxyhemoglobin Sodium Potassium Chloride Carbon Dioxide BUN Creatinine Glucose POC Glucose 235 H 286 H Calcium Phosphorus Magnesium Iron TIBC Ferritin Total Bilirubin AST ALT Alkaline Phosphatase Total Creatine Kinase Troponin T C-Reactive Protein Total Protein Albumin Triglycerides HDL Cholesterol Miscellaneous Test Crossmatch 09/13/17 09/13/17 09/13/17 11:56 17:25 23:18 WBC RBC Hgb Hct MCV MCH RDW Plt Count Lymph % (Auto) [place] % (Auto) [place] # Seg Neutrophils % Seg Neuts % (Manual) Lymphocytes % (Manual) Monocytes % (Manual) Nucleated RBC % Seg Neutrophils # Seg Neutrophils # Man Lymphocytes # (Manual) Monocytes # (Manual) Eosinophils # (Manual) Basophils # (Manual) PT INR POC ABG pH ABG pH POC ABG pCO2 POC ABG pO2 ABG pO2 ABG O2 Saturation ABG Base Excess ABG Hemoglobin Oxyhemoglobin Sodium Potassium Chloride Carbon Dioxide BUN Creatinine Glucose POC Glucose 318 H 278 H 230 H Calcium Phosphorus Magnesium Iron TIBC Ferritin Total Bilirubin AST ALT Alkaline Phosphatase Total Creatine Kinase Troponin T C-Reactive Protein Total Protein Albumin Triglycerides HDL Cholesterol Miscellaneous Test Crossmatch 09/13/17 09/13/17 09/13/17 Unknown Unknown Unknown WBC 15.6 H RBC 2.72 L Hgb 8.1 L Hct 23.9 L MCV MCH RDW 19.5 H Plt Count 137 L Lymph % (Auto) [place] % (Auto) [place] # Seg Neutrophils % Seg Neuts % (Manual) 73.0 H Lymphocytes % (Manual) 3.0 L Monocytes % (Manual) 19.0 H Nucleated RBC % 2.0 H Seg Neutrophils # Seg Neutrophils # Man 11.4 H Lymphocytes # (Manual) 0.5 L Monocytes # (Manual) 3.0 H Eosinophils # (Manual) Basophils # (Manual) PT INR POC ABG pH ABG pH POC ABG pCO2 POC ABG pO2 ABG pO2 ABG O2 Saturation ABG Base Excess ABG Hemoglobin Oxyhemoglobin Sodium Potassium Chloride Carbon Dioxide 19 L BUN 103 H Creatinine 2.6 H Glucose 173 H POC Glucose Calcium Phosphorus Magnesium Iron TIBC Ferritin Total Bilirubin AST ALT Alkaline Phosphatase Total Creatine Kinase Troponin T C-Reactive Protein Total Protein Albumin < 0.2 L Triglycerides HDL Cholesterol Miscellaneous Test Crossmatch 09/14/17 09/14/17 09/14/17 03:15 03:15 05:16 WBC 12.5 H RBC 2.55 L Hgb 7.6 L Hct 22.5 L MCV MCH RDW 19.8 H Plt Count 139 L Lymph % (Auto) [place] % (Auto) [place] # Seg Neutrophils % Seg Neuts % (Manual) Lymphocytes % (Manual) Monocytes % (Manual) Nucleated RBC % Seg Neutrophils # Seg Neutrophils # Man Lymphocytes # (Manual) Monocytes # (Manual) Eosinophils # (Manual) Basophils # (Manual) PT INR POC ABG pH ABG pH POC ABG pCO2 POC ABG pO2 ABG pO2 ABG O2 Saturation ABG Base Excess ABG Hemoglobin Oxyhemoglobin Sodium Potassium Chloride Carbon Dioxide BUN 75 H Creatinine 2.1 H Glucose 217 H POC Glucose 283 H Calcium Phosphorus 2.20 L D Magnesium Iron TIBC Ferritin Total Bilirubin AST ALT Alkaline Phosphatase Total Creatine Kinase Troponin T C-Reactive Protein Total Protein Albumin Triglycerides HDL Cholesterol Miscellaneous Test Crossmatch 09/14/17 09/14/17 09/15/17 12:11 17:47 00:03 WBC RBC Hgb Hct MCV MCH RDW Plt Count Lymph % (Auto) [place] % (Auto) [place] # Seg Neutrophils % Seg Neuts % (Manual) Lymphocytes % (Manual) Monocytes % (Manual) Nucleated RBC % Seg Neutrophils # Seg Neutrophils # Man Lymphocytes # (Manual) Monocytes # (Manual) Eosinophils # (Manual) Basophils # (Manual) PT INR POC ABG pH ABG pH POC ABG pCO2 POC ABG pO2 ABG pO2 ABG O2 Saturation ABG Base Excess ABG Hemoglobin Oxyhemoglobin Sodium Potassium Chloride Carbon Dioxide BUN Creatinine Glucose POC Glucose 251 H 289 H 229 H Calcium Phosphorus Magnesium Iron TIBC Ferritin Total Bilirubin AST ALT Alkaline Phosphatase Total Creatine Kinase Troponin T C-Reactive Protein Total Protein Albumin Triglycerides HDL Cholesterol Miscellaneous Test Crossmatch 09/15/17 09/15/17 09/15/17 05:00 05:00 05:30 WBC 11.7 H RBC 2.50 L Hgb 7.4 L Hct 22.7 L MCV MCH RDW 20.5 H Plt Count Lymph % (Auto) [place] % (Auto) [place] # Seg Neutrophils % Seg Neuts % (Manual) Lymphocytes % (Manual) 11.0 L Monocytes % (Manual) 11.0 H Nucleated RBC % Seg Neutrophils # Seg Neutrophils # Man Lymphocytes # (Manual) Monocytes # (Manual) 1.3 H Eosinophils # (Manual) Basophils # (Manual) PT INR POC ABG pH ABG pH POC ABG pCO2 POC ABG pO2 ABG pO2 ABG O2 Saturation ABG Base Excess ABG Hemoglobin Oxyhemoglobin Sodium Potassium Chloride 97.0 L Carbon Dioxide 21 L BUN 94 H Creatinine 2.4 H Glucose 194 H POC Glucose 225 H Calcium Phosphorus Magnesium Iron TIBC Ferritin Total Bilirubin AST ALT Alkaline Phosphatase Total Creatine Kinase Troponin T C-Reactive Protein Total Protein Albumin Triglycerides HDL Cholesterol Miscellaneous Test Crossmatch 09/15/17 09/15/17 09/15/17 07:48 11:38 12:45 WBC RBC 1.93 L Hgb 5.7 L* Hct 17.1 L* MCV MCH RDW 20.2 H Plt Count 125 L Lymph % (Auto) [place] % (Auto) [place] # Seg Neutrophils % Seg Neuts % (Manual) 79.0 H Lymphocytes % (Manual) 8.0 L Monocytes % (Manual) Nucleated RBC % Seg Neutrophils # Seg Neutrophils # Man Lymphocytes # (Manual) 0.8 L Monocytes # (Manual) Eosinophils # (Manual) Basophils # (Manual) PT INR POC ABG pH ABG pH POC ABG pCO2 POC ABG pO2 ABG pO2 ABG O2 Saturation ABG Base Excess ABG Hemoglobin Oxyhemoglobin Sodium Potassium Chloride Carbon Dioxide BUN Creatinine Glucose POC Glucose 245 H 253 H Calcium Phosphorus Magnesium Iron TIBC Ferritin Total Bilirubin AST ALT Alkaline Phosphatase Total Creatine Kinase Troponin T C-Reactive Protein Total Protein Albumin Triglycerides HDL Cholesterol Miscellaneous Test Crossmatch 09/15/17 09/15/17 09/15/17 12:45 12:45 22:25 WBC 19.6 H RBC 3.32 L Hgb 10.0 L D Hct 29.3 L D MCV MCH RDW 17.0 H Plt Count 123 L Lymph % (Auto) [place] % (Auto) [place] # Seg Neutrophils % Seg Neuts % (Manual) Lymphocytes % (Manual) 12.0 L Monocytes % (Manual) Nucleated RBC % 5.0 H Seg Neutrophils # Seg Neutrophils # Man 11.0 H Lymphocytes # (Manual) Monocytes # (Manual) 1.2 H Eosinophils # (Manual) Basophils # (Manual) PT 15.4 H INR 1.16 H POC ABG pH ABG pH POC ABG pCO2 POC ABG pO2 ABG pO2 ABG O2 Saturation ABG Base Excess ABG Hemoglobin Oxyhemoglobin Sodium Potassium Chloride Carbon Dioxide BUN Creatinine Glucose POC Glucose Calcium Phosphorus Magnesium Iron TIBC Ferritin Total Bilirubin AST ALT Alkaline Phosphatase Total Creatine Kinase Troponin T C-Reactive Protein Total Protein Albumin Triglycerides HDL Cholesterol Miscellaneous Test Crossmatch See Detail 09/15/17 09/15/17 09/16/17 22:25 23:38 01:26 WBC RBC Hgb Hct MCV MCH RDW Plt Count Lymph % (Auto) [place] % (Auto) [place] # Seg Neutrophils % Seg Neuts % (Manual) Lymphocytes % (Manual) Monocytes % (Manual) Nucleated RBC % Seg Neutrophils # Seg Neutrophils # Man Lymphocytes # (Manual) Monocytes # (Manual) Eosinophils # (Manual) Basophils # (Manual) PT INR POC ABG pH ABG pH POC ABG pCO2 POC ABG pO2 ABG pO2 ABG O2 Saturation ABG Base Excess ABG Hemoglobin Oxyhemoglobin Sodium Potassium Chloride Carbon Dioxide 17 L BUN 100 H Creatinine 2.6 H Glucose POC Glucose 58 L 132 H Calcium 8.3 L Phosphorus Magnesium 1.60 L Iron TIBC Ferritin Total Bilirubin 2.80 H AST 118 H ALT Alkaline Phosphatase 316 H Total Creatine Kinase Troponin T C-Reactive Protein Total Protein 4.0 L Albumin 1.8 L Triglycerides HDL Cholesterol Miscellaneous Test Crossmatch 09/16/17 09/16/17 09/16/17 05:30 05:30 05:54 WBC 24.6 H RBC 3.22 L Hgb 9.8 L Hct 28.6 L MCV MCH RDW 17.4 H Plt Count 127 L Lymph % (Auto) [place] % (Auto) [place] # Seg Neutrophils % Seg Neuts % (Manual) Lymphocytes % (Manual) Monocytes % (Manual) Nucleated RBC % Seg Neutrophils # Seg Neutrophils # Man Lymphocytes # (Manual) Monocytes # (Manual) Eosinophils # (Manual) Basophils # (Manual) PT INR POC ABG pH ABG pH POC ABG pCO2 POC ABG pO2 ABG pO2 ABG O2 Saturation ABG Base Excess ABG Hemoglobin Oxyhemoglobin Sodium Potassium Chloride Carbon Dioxide 18 L BUN 109 H Creatinine 2.5 H Glucose 140 H POC Glucose 154 H Calcium Phosphorus 4.80 H Magnesium Iron TIBC Ferritin Total Bilirubin 2.40 H AST 90 H ALT Alkaline Phosphatase 298 H Total Creatine Kinase 20 L Troponin T C-Reactive Protein Total Protein 4.1 L Albumin 1.8 L Triglycerides HDL Cholesterol Miscellaneous Test Crossmatch 09/16/17 09/16/17 09/16/17 11:49 17:04 23:18 WBC RBC Hgb Hct MCV MCH RDW Plt Count Lymph % (Auto) [place] % (Auto) [place] # Seg Neutrophils % Seg Neuts % (Manual) Lymphocytes % (Manual) Monocytes % (Manual) Nucleated RBC % Seg Neutrophils # Seg Neutrophils # Man Lymphocytes # (Manual) Monocytes # (Manual) Eosinophils # (Manual) Basophils # (Manual) PT INR POC ABG pH ABG pH POC ABG pCO2 POC ABG pO2 ABG pO2 ABG O2 Saturation ABG Base Excess ABG Hemoglobin Oxyhemoglobin Sodium Potassium Chloride Carbon Dioxide BUN Creatinine Glucose POC Glucose 167 H 156 H 162 H Calcium Phosphorus Magnesium Iron TIBC Ferritin Total Bilirubin AST ALT Alkaline Phosphatase Total Creatine Kinase Troponin T C-Reactive Protein Total Protein Albumin Triglycerides HDL Cholesterol Miscellaneous Test Crossmatch 09/17/17 09/17/17 09/17/17 05:27 06:10 06:10 WBC 34.6 H RBC 2.75 L Hgb 8.4 L Hct 24.8 L MCV MCH RDW 18.3 H Plt Count Lymph % (Auto) [place] % (Auto) [place] # Seg Neutrophils % Seg Neuts % (Manual) 77.0 H Lymphocytes % (Manual) 5.0 L Monocytes % (Manual) Nucleated RBC % 2.0 H Seg Neutrophils # Seg Neutrophils # Man 26.6 H Lymphocytes # (Manual) Monocytes # (Manual) 2.4 H Eosinophils # (Manual) Basophils # (Manual) PT INR POC ABG pH ABG pH POC ABG pCO2 POC ABG pO2 ABG pO2 ABG O2 Saturation ABG Base Excess ABG Hemoglobin Oxyhemoglobin Sodium Potassium Chloride Carbon Dioxide BUN 82 H Creatinine 2.1 H Glucose 252 H POC Glucose 243 H Calcium 8.3 L Phosphorus Magnesium Iron TIBC Ferritin Total Bilirubin AST ALT Alkaline Phosphatase Total Creatine Kinase Troponin T C-Reactive Protein Total Protein Albumin Triglycerides HDL Cholesterol Miscellaneous Test Crossmatch 09/17/17 09/17/17 09/18/17 11:42 17:12 00:08 WBC RBC Hgb Hct MCV MCH RDW Plt Count Lymph % (Auto) [place] % (Auto) [place] # Seg Neutrophils % Seg Neuts % (Manual) Lymphocytes % (Manual) Monocytes % (Manual) Nucleated RBC % Seg Neutrophils # Seg Neutrophils # Man Lymphocytes # (Manual) Monocytes # (Manual) Eosinophils # (Manual) Basophils # (Manual) PT INR POC ABG pH ABG pH POC ABG pCO2 POC ABG pO2 ABG pO2 ABG O2 Saturation ABG Base Excess ABG Hemoglobin Oxyhemoglobin Sodium Potassium Chloride Carbon Dioxide BUN Creatinine Glucose POC Glucose 232 H 309 H 275 H Calcium Phosphorus Magnesium Iron TIBC Ferritin Total Bilirubin AST ALT Alkaline Phosphatase Total Creatine Kinase Troponin T C-Reactive Protein Total Protein Albumin Triglycerides HDL Cholesterol Miscellaneous Test Crossmatch 09/18/17 09/18/17 09/18/17 05:10 05:10 05:23 WBC 24.4 H RBC 2.57 L Hgb 7.8 L Hct 23.2 L MCV MCH RDW 19.5 H Plt Count Lymph % (Auto) [place] % (Auto) [place] # Seg Neutrophils % Seg Neuts % (Manual) 78.0 H Lymphocytes % (Manual) 6.0 L Monocytes % (Manual) Nucleated RBC % 2.0 H Seg Neutrophils # Seg Neutrophils # Man 19.0 H Lymphocytes # (Manual) Monocytes # (Manual) Eosinophils # (Manual) Basophils # (Manual) PT INR POC ABG pH ABG pH POC ABG pCO2 POC ABG pO2 ABG pO2 ABG O2 Saturation ABG Base Excess ABG Hemoglobin Oxyhemoglobin Sodium Potassium Chloride Carbon Dioxide BUN 103 H Creatinine 2.8 H Glucose 173 H POC Glucose 224 H Calcium Phosphorus Magnesium Iron TIBC Ferritin Total Bilirubin AST ALT Alkaline Phosphatase Total Creatine Kinase Troponin T C-Reactive Protein Total Protein Albumin Triglycerides HDL Cholesterol Miscellaneous Test Crossmatch 09/18/17 09/18/17 09/18/17 13:59 18:35 23:19 WBC RBC Hgb Hct MCV MCH RDW Plt Count Lymph % (Auto) [place] % (Auto) [place] # Seg Neutrophils % Seg Neuts % (Manual) Lymphocytes % (Manual) Monocytes % (Manual) Nucleated RBC % Seg Neutrophils # Seg Neutrophils # Man Lymphocytes # (Manual) Monocytes # (Manual) Eosinophils # (Manual) Basophils # (Manual) PT INR POC ABG pH ABG pH POC ABG pCO2 POC ABG pO2 ABG pO2 ABG O2 Saturation ABG Base Excess ABG Hemoglobin Oxyhemoglobin Sodium Potassium Chloride Carbon Dioxide BUN Creatinine Glucose POC Glucose 268 H 220 H 188 H Calcium Phosphorus Magnesium Iron TIBC Ferritin Total Bilirubin AST ALT Alkaline Phosphatase Total Creatine Kinase Troponin T C-Reactive Protein Total Protein Albumin Triglycerides HDL Cholesterol Miscellaneous Test Crossmatch 09/19/17 09/19/17 09/19/17 05:45 06:00 11:41 WBC 17.6 H RBC 2.57 L Hgb 7.9 L Hct 23.2 L MCV MCH RDW 19.0 H Plt Count Lymph % (Auto) [place] % (Auto) [place] # Seg Neutrophils % Seg Neuts % (Manual) Lymphocytes % (Manual) 9.0 L Monocytes % (Manual) Nucleated RBC % Seg Neutrophils # Seg Neutrophils # Man 11.4 H Lymphocytes # (Manual) Monocytes # (Manual) 0.9 H Eosinophils # (Manual) Basophils # (Manual) PT INR POC ABG pH ABG pH POC ABG pCO2 POC ABG pO2 ABG pO2 ABG O2 Saturation ABG Base Excess ABG Hemoglobin Oxyhemoglobin Sodium Potassium Chloride Carbon Dioxide BUN Creatinine Glucose POC Glucose 178 H 126 H Calcium Phosphorus Magnesium Iron TIBC Ferritin Total Bilirubin AST ALT Alkaline Phosphatase Total Creatine Kinase Troponin T C-Reactive Protein Total Protein Albumin Triglycerides HDL Cholesterol Miscellaneous Test Crossmatch 09/19/17 09/19/17 09/20/17 17:08 23:46 04:46 WBC RBC Hgb Hct MCV MCH RDW Plt Count Lymph % (Auto) [place] % (Auto) [place] # Seg Neutrophils % Seg Neuts % (Manual) Lymphocytes % (Manual) Monocytes % (Manual) Nucleated RBC % Seg Neutrophils # Seg Neutrophils # Man Lymphocytes # (Manual) Monocytes # (Manual) Eosinophils # (Manual) Basophils # (Manual) PT INR POC ABG pH ABG pH POC ABG pCO2 POC ABG pO2 ABG pO2 ABG O2 Saturation ABG Base Excess ABG Hemoglobin Oxyhemoglobin Sodium Potassium 5.2 H D Chloride 97.4 L Carbon Dioxide 20 L BUN 98 H Creatinine 2.4 H Glucose 187 H POC Glucose 263 H 161 H Calcium Phosphorus Magnesium Iron TIBC Ferritin Total Bilirubin AST ALT Alkaline Phosphatase Total Creatine Kinase Troponin T C-Reactive Protein Total Protein Albumin Triglycerides HDL Cholesterol Miscellaneous Test Crossmatch 09/20/17 09/20/17 09/20/17 05:38 11:36 11:41 WBC 24.5 H RBC 2.84 L Hgb 8.2 L Hct 26.2 L MCV MCH RDW 20.0 H Plt Count 470 H Lymph % (Auto) [place] % (Auto) [place] # Seg Neutrophils % Seg Neuts % (Manual) Lymphocytes % (Manual) Monocytes % (Manual) Nucleated RBC % Seg Neutrophils # Seg Neutrophils # Man Lymphocytes # (Manual) Monocytes # (Manual) Eosinophils # (Manual) Basophils # (Manual) PT INR POC ABG pH ABG pH POC ABG pCO2 POC ABG pO2 ABG pO2 ABG O2 Saturation ABG Base Excess ABG Hemoglobin Oxyhemoglobin Sodium Potassium Chloride Carbon Dioxide BUN Creatinine Glucose POC Glucose 215 H 220 H Calcium Phosphorus Magnesium Iron TIBC Ferritin Total Bilirubin AST ALT Alkaline Phosphatase Total Creatine Kinase Troponin T C-Reactive Protein Total Protein Albumin Triglycerides HDL Cholesterol Miscellaneous Test Crossmatch 09/20/17 09/21/17 09/21/17 17:45 00:51 04:00 WBC RBC Hgb Hct MCV MCH RDW Plt Count Lymph % (Auto) [place] % (Auto) [place] # Seg Neutrophils % Seg Neuts % (Manual) Lymphocytes % (Manual) Monocytes % (Manual) Nucleated RBC % Seg Neutrophils # Seg Neutrophils # Man Lymphocytes # (Manual) Monocytes # (Manual) Eosinophils # (Manual) Basophils # (Manual) PT INR POC ABG pH ABG pH POC ABG pCO2 POC ABG pO2 ABG pO2 ABG O2 Saturation ABG Base Excess ABG Hemoglobin Oxyhemoglobin Sodium Potassium 3.2 L D Chloride 96.4 L Carbon Dioxide BUN 63 H Creatinine 1.8 H Glucose 204 H POC Glucose 122 H 137 H Calcium 8.3 L Phosphorus 2.10 L D Magnesium 1.50 L Iron TIBC Ferritin Total Bilirubin AST ALT Alkaline Phosphatase Total Creatine Kinase Troponin T C-Reactive Protein Total Protein Albumin Triglycerides HDL Cholesterol Miscellaneous Test Crossmatch 09/21/17 09/21/17 09/21/17 05:45 08:30 11:50 WBC 27.5 H RBC 2.52 L Hgb 7.7 L Hct 22.8 L MCV MCH RDW 19.2 H Plt Count 457 H Lymph % (Auto) [place] % (Auto) [place] # Seg Neutrophils % Seg Neuts % (Manual) Lymphocytes % (Manual) Monocytes % (Manual) Nucleated RBC % Seg Neutrophils # Seg Neutrophils # Man Lymphocytes # (Manual) Monocytes # (Manual) Eosinophils # (Manual) Basophils # (Manual) PT INR POC ABG pH ABG pH POC ABG pCO2 POC ABG pO2 ABG pO2 ABG O2 Saturation ABG Base Excess ABG Hemoglobin Oxyhemoglobin Sodium Potassium Chloride Carbon Dioxide BUN Creatinine Glucose POC Glucose 243 H Calcium Phosphorus Magnesium Iron TIBC Ferritin Total Bilirubin AST ALT Alkaline Phosphatase Total Creatine Kinase Troponin T C-Reactive Protein Total Protein Albumin Triglycerides HDL Cholesterol Miscellaneous Test Crossmatch See Detail 09/21/17 09/21/17 09/22/17 13:03 16:39 00:09 WBC RBC Hgb Hct MCV MCH RDW Plt Count Lymph % (Auto) [place] % (Auto) [place] # Seg Neutrophils % Seg Neuts % (Manual) Lymphocytes % (Manual) Monocytes % (Manual) Nucleated RBC % Seg Neutrophils # Seg Neutrophils # Man Lymphocytes # (Manual) Monocytes # (Manual) Eosinophils # (Manual) Basophils # (Manual) PT INR POC ABG pH ABG pH POC ABG pCO2 POC ABG pO2 ABG pO2 ABG O2 Saturation ABG Base Excess ABG Hemoglobin Oxyhemoglobin Sodium Potassium Chloride Carbon Dioxide BUN Creatinine Glucose POC Glucose 271 H 160 H 191 H Calcium Phosphorus Magnesium Iron TIBC Ferritin Total Bilirubin AST ALT Alkaline Phosphatase Total Creatine Kinase Troponin T C-Reactive Protein Total Protein Albumin Triglycerides HDL Cholesterol Miscellaneous Test Crossmatch 09/22/17 09/22/17 09/22/17 03:37 05:40 07:35 WBC 29.7 H RBC 2.71 L Hgb 8.1 L Hct 24.1 L MCV MCH RDW 19.6 H Plt Count 491 H Lymph % (Auto) [place] % (Auto) [place] # Seg Neutrophils % Seg Neuts % (Manual) 70.5 H Lymphocytes % (Manual) 12.5 L Monocytes % (Manual) 10.0 H Nucleated RBC % 2.0 H Seg Neutrophils # Seg Neutrophils # Man 20.9 H Lymphocytes # (Manual) Monocytes # (Manual) 3.0 H Eosinophils # (Manual) Basophils # (Manual) PT INR POC ABG pH ABG pH POC ABG pCO2 POC ABG pO2 ABG pO2 ABG O2 Saturation ABG Base Excess ABG Hemoglobin Oxyhemoglobin Sodium Potassium 3.0 L Chloride 95.9 L Carbon Dioxide BUN 74 H Creatinine 2.1 H Glucose 126 H POC Glucose 150 H Calcium Phosphorus 2.10 L Magnesium 1.40 L Iron TIBC Ferritin Total Bilirubin AST ALT Alkaline Phosphatase 311 H Total Creatine Kinase Troponin T C-Reactive Protein Total Protein 4.4 L Albumin 2.0 L Triglycerides HDL Cholesterol Miscellaneous Test Crossmatch 09/22/17 09/23/17 09/23/17 12:20 05:02 05:02 WBC 37.5 H RBC 2.54 L Hgb 7.3 L Hct 22.9 L MCV MCH RDW 19.4 H Plt Count 471 H Lymph % (Auto) [place] % (Auto) [place] # Seg Neutrophils % Seg Neuts % (Manual) Lymphocytes % (Manual) 8.0 L Monocytes % (Manual) Nucleated RBC % 1.0 H Seg Neutrophils # Seg Neutrophils # Man 15.0 H Lymphocytes # (Manual) Monocytes # (Manual) 1.9 H Eosinophils # (Manual) Basophils # (Manual) PT INR POC ABG pH ABG pH POC ABG pCO2 POC ABG pO2 ABG pO2 ABG O2 Saturation ABG Base Excess ABG Hemoglobin Oxyhemoglobin Sodium 136 L Potassium 3.0 L Chloride 93.8 L Carbon Dioxide BUN 99 H Creatinine 2.7 H Glucose POC Glucose 106 H Calcium 8.2 L Phosphorus 2.40 L Magnesium Iron TIBC Ferritin Total Bilirubin AST ALT Alkaline Phosphatase Total Creatine Kinase Troponin T C-Reactive Protein Total Protein Albumin Triglycerides HDL Cholesterol Miscellaneous Test Crossmatch 09/23/17 09/23/17 09/23/17 05:39 11:21 18:19 WBC RBC Hgb Hct MCV MCH RDW Plt Count Lymph % (Auto) [place] % (Auto) [place] # Seg Neutrophils % Seg Neuts % (Manual) Lymphocytes % (Manual) Monocytes % (Manual) Nucleated RBC % Seg Neutrophils # Seg Neutrophils # Man Lymphocytes # (Manual) Monocytes # (Manual) Eosinophils # (Manual) Basophils # (Manual) PT INR POC ABG pH ABG pH POC ABG pCO2 POC ABG pO2 ABG pO2 ABG O2 Saturation ABG Base Excess ABG Hemoglobin Oxyhemoglobin Sodium Potassium Chloride Carbon Dioxide BUN Creatinine Glucose POC Glucose 118 H 130 H 189 H Calcium Phosphorus Magnesium Iron TIBC Ferritin Total Bilirubin AST ALT Alkaline Phosphatase Total Creatine Kinase Troponin T C-Reactive Protein Total Protein Albumin Triglycerides HDL Cholesterol Miscellaneous Test Crossmatch 09/23/17 09/24/17 09/24/17 23:55 04:00 04:00 WBC 37.8 H RBC 2.76 L Hgb 8.1 L Hct 24.8 L MCV MCH RDW 19.8 H Plt Count 539 H Lymph % (Auto) [place] % (Auto) [place] # Seg Neutrophils % Seg Neuts % (Manual) Lymphocytes % (Manual) 4.0 L Monocytes % (Manual) Nucleated RBC % 6.0 H Seg Neutrophils # Seg Neutrophils # Man 19.3 H Lymphocytes # (Manual) Monocytes # (Manual) 1.5 H Eosinophils # (Manual) Basophils # (Manual) 0.4 H PT INR POC ABG pH ABG pH POC ABG pCO2 POC ABG pO2 ABG pO2 ABG O2 Saturation ABG Base Excess ABG Hemoglobin Oxyhemoglobin Sodium Potassium 3.5 L Chloride 95.2 L Carbon Dioxide BUN 67 H Creatinine 1.9 H Glucose 140 H POC Glucose 120 H Calcium 8.2 L Phosphorus 2.00 L Magnesium Iron TIBC Ferritin Total Bilirubin AST ALT Alkaline Phosphatase Total Creatine Kinase Troponin T C-Reactive Protein Total Protein Albumin Triglycerides HDL Cholesterol Miscellaneous Test Crossmatch 09/24/17 09/24/17 09/24/17 04:00 05:33 12:16 WBC RBC Hgb Hct MCV MCH RDW Plt Count Lymph % (Auto) [place] % (Auto) [place] # Seg Neutrophils % Seg Neuts % (Manual) Lymphocytes % (Manual) Monocytes % (Manual) Nucleated RBC % Seg Neutrophils # Seg Neutrophils # Man Lymphocytes # (Manual) Monocytes # (Manual) Eosinophils # (Manual) Basophils # (Manual) PT INR POC ABG pH ABG pH POC ABG pCO2 POC ABG pO2 ABG pO2 ABG O2 Saturation ABG Base Excess ABG Hemoglobin Oxyhemoglobin Sodium Potassium Chloride Carbon Dioxide BUN Creatinine Glucose POC Glucose 178 H 262 H Calcium Phosphorus Magnesium Iron TIBC Ferritin Total Bilirubin AST ALT Alkaline Phosphatase Total Creatine Kinase Troponin T C-Reactive Protein Total Protein Albumin Triglycerides HDL Cholesterol Miscellaneous Test Crossmatch See Detail 09/24/17 09/24/17 09/25/17 17:51 23:33 06:03 WBC RBC Hgb Hct MCV MCH RDW Plt Count Lymph % (Auto) [place] % (Auto) [place] # Seg Neutrophils % Seg Neuts % (Manual) Lymphocytes % (Manual) Monocytes % (Manual) Nucleated RBC % Seg Neutrophils # Seg Neutrophils # Man Lymphocytes # (Manual) Monocytes # (Manual) Eosinophils # (Manual) Basophils # (Manual) PT INR POC ABG pH ABG pH POC ABG pCO2 POC ABG pO2 ABG pO2 ABG O2 Saturation ABG Base Excess ABG Hemoglobin Oxyhemoglobin Sodium Potassium Chloride Carbon Dioxide BUN Creatinine Glucose POC Glucose 166 H 142 H 173 H Calcium Phosphorus Magnesium Iron TIBC Ferritin Total Bilirubin AST ALT Alkaline Phosphatase Total Creatine Kinase Troponin T C-Reactive Protein Total Protein Albumin Triglycerides HDL Cholesterol Miscellaneous Test Crossmatch 09/25/17 09/25/17 09/25/17 07:49 07:49 11:36 WBC 59.6 H* RBC 2.63 L Hgb 7.7 L Hct 26.0 L MCV 99 H MCH RDW 21.8 H Plt Count Lymph % (Auto) [place] % (Auto) [place] # Seg Neutrophils % Seg Neuts % (Manual) Lymphocytes % (Manual) 2.0 L Monocytes % (Manual) Nucleated RBC % 8.0 H Seg Neutrophils # Seg Neutrophils # Man 41.7 H Lymphocytes # (Manual) Monocytes # (Manual) 1.2 H Eosinophils # (Manual) Basophils # (Manual) PT INR POC ABG pH ABG pH POC ABG pCO2 POC ABG pO2 ABG pO2 ABG O2 Saturation ABG Base Excess ABG Hemoglobin Oxyhemoglobin Sodium Potassium 5.3 H D Chloride 97.7 L Carbon Dioxide 19 L BUN 90 H Creatinine 2.5 H Glucose 181 H POC Glucose 308 H Calcium 8.0 L Phosphorus Magnesium Iron TIBC Ferritin Total Bilirubin AST ALT Alkaline Phosphatase Total Creatine Kinase Troponin T C-Reactive Protein Total Protein Albumin Triglycerides HDL Cholesterol Miscellaneous Test Crossmatch 09/25/17 09/25/17 09/26/17 16:11 23:38 05:25 WBC 61.9 H* RBC 2.30 L Hgb 7.0 L Hct 21.4 L MCV MCH RDW 21.3 H Plt Count Lymph % (Auto) [place] % (Auto) [place] # Seg Neutrophils % Seg Neuts % (Manual) Lymphocytes % (Manual) 1.0 L Monocytes % (Manual) Nucleated RBC % 7.0 H Seg Neutrophils # Seg Neutrophils # Man 37.1 H Lymphocytes # (Manual) 0.6 L Monocytes # (Manual) 1.9 H Eosinophils # (Manual) Basophils # (Manual) PT INR POC ABG pH ABG pH POC ABG pCO2 POC ABG pO2 ABG pO2 ABG O2 Saturation ABG Base Excess ABG Hemoglobin Oxyhemoglobin Sodium Potassium Chloride Carbon Dioxide BUN Creatinine Glucose POC Glucose 249 H 263 H Calcium Phosphorus Magnesium Iron TIBC Ferritin Total Bilirubin AST ALT Alkaline Phosphatase Total Creatine Kinase Troponin T C-Reactive Protein Total Protein Albumin Triglycerides HDL Cholesterol Miscellaneous Test Crossmatch 09/26/17 09/26/17 09/26/17 05:25 05:32 11:33 WBC RBC Hgb Hct MCV MCH RDW Plt Count Lymph % (Auto) [place] % (Auto) [place] # Seg Neutrophils % Seg Neuts % (Manual) Lymphocytes % (Manual) Monocytes % (Manual) Nucleated RBC % Seg Neutrophils # Seg Neutrophils # Man Lymphocytes # (Manual) Monocytes # (Manual) Eosinophils # (Manual) Basophils # (Manual) PT INR POC ABG pH ABG pH POC ABG pCO2 POC ABG pO2 ABG pO2 ABG O2 Saturation ABG Base Excess ABG Hemoglobin Oxyhemoglobin Sodium Potassium Chloride Carbon Dioxide 21 L BUN 81 H Creatinine 2.3 H Glucose 178 H POC Glucose 225 H 246 H Calcium 8.1 L Phosphorus Magnesium Iron TIBC Ferritin Total Bilirubin AST ALT Alkaline Phosphatase Total Creatine Kinase Troponin T C-Reactive Protein Total Protein Albumin Triglycerides HDL Cholesterol Miscellaneous Test Crossmatch Chest x-ray: report reviewed, image reviewed
[2017-09-26] MEDS ORDERED: TPN ADULT 1,800 ML IV SCH (20:00)
--- NOTE | 2017-09-26 20:22 | Progress Note ---
Assessment and Plan - Patient Problems (1) Leukocytosis Current Visit: Yes Status: Acute Qualifiers: Leukocytosis type: L Plan to address problem: See notes above. make sure that PD access is clean also. see notes. Probably infection from the infected PD catheter. improving. back up again. up/down continue to monitor. it continuos to rise. still high. improved. Back up. Now improving again. still in the same range as yesterday.. worse today. 37,000 59,000 61.9 (2) Anemia Current Visit: Yes Status: Acute Qualifiers: Anemia type: A Iron deficiency anemia type: I Vitamin B12 deficiency anemia type: V Folate deficiency anemia type: F Bone marrow failure anemia type: B Hemolytic anemia type: H Other causes of anemia: O Chronic kidney disease stage: C Plan to address problem: see notes , monitor labs,. see notes above. continue to monitor labs with you. blood transfusion. S/P replacement transfusion. fair. s/p 1unit transfusion. see notes. Still at 7.4 6.9, scheduled for replacement. Fairly stable at this time. continue to monitor. If less, or equal to 7.0, will need replacement transfusion, with HD. Fair at this time. 7.7 today 7.0, needs blood with next HD. (3) Acute respiratory failure Current Visit: Yes Status: Acute Qualifiers: Respiratory failure complication: R Plan to address problem: follow pulm. Subjective Date of service: 09/26/17 Principal diagnosis: respiratory failure, sepsis, shock rectal bleeding Interval history: Patient seen today/examined, labs reviewed, case d/w she, and family.complaints of abdominal pain. Patient resting in bed in the ICU, post vascular procedure. labs reviewed, Reactive thrombocytosis, anemia of CD, leukocytosis from infection vs inflamatory process. Patient seen/examined, in bed in the ICU, on the vent post surgery.Labs reviewed , notes reviewed. will continue to monitor labs/patient with you. Replacement transfusion, if /when indicated. patient seen/examined, SBP75, on pressors., lethargic, on the vent, labs reviewed, wbc 39,000 Patient seen/examined, case reviewed, d/w her sister at the bed side. Patient seen/examined, labs reviewed, notes reviewed. severe septic shock from infected PD catheter The high wbc is all infection related. H?H low, and may get replacement transfusion with the next HD. Prognosis remain quite poor. Patient seen/examined, extubated, now on V Mask. labs reviewed. patient seen/examined, resting in bed, still some what lethargic . labs reviewed. Patient seen/examined, resting in bed., some difficulty with breathing./ lethargic. patient seen/examined, resting in bed, looked much better labs reviewed, and fair over all. Patient seen/examined, resting in bed, labs reviewed, case d/w her. Patient seen/examined, resting in bed on BIPAP., labs reviewed. patient seen/examined, resting in bed, on Bipap.labs reviewed, fairly stable. Patient seen today, resting in bed, labs reviewed, H/H low, and transfusion already ordered. Patient seen/examined, resting in bed, transferred back to the unit, due to resp failure. She is now on venting mask. had blood replacement done. Patient seen/examined in the ICU.labs reviewed. patient intubated this am. patient resting in bed.no new issues. Patient seen/examined in the ICU, on vent,Not readily responsive. patient seen, resting in bed, no new cbc ready.will order for today. Patient seen, resting in vent, labs reviewed.notes reviewed also. patient seen/examined, resting on vent, had HD yesterday, and today., labs reviewed. Patient seen, resting in bed, labs reviewed.fairly stable labs, except the wbc. Patient seen/examined, rtesting in bed on the vent.Labs reviewed, wbc still elevated, Hgb dropped slightly. Patient seen/examined, labs reviewed, hgb 7.3, if 7.0 or less, will replace .unless otherwise indicated. Patient seen/examined, alert but lethargic.sedation drip turned down.she is s/p 1unit PRBC replacement with HD today. Patient seen/examined, labs reviewed, hgb still not quite enough at 7.5, perhaps with the next HD,can use 1-2 units. Patient seen/examined, resting in bed, trached, labs re viewed. Patient seen/examined, resting in bed, responds to name calling, SBP99, labs reviewed, Hgb 6.9, PRBC replacement ordered by primary. Patient seen/examined, in bed/trach, NGT., alert/lethargic. Patient seen/examined, resting in bed, still lethargic, labs reviewed, and still fair.Will continue to follow you. Patient seen/examined, resting in bed, labs reviewed. HD in progress.She is now getting daily HD.Labs reviewed, and still fair. Patient seen/examined, resting in bed, less lethargic/less toxic looking. labs have improved. Patient seen/examined, labs reviewed, fair, case d/w her spouse at the bed side. Patient seen/examined, resting ok in bed, alert, NAD, HD in progress.Labs reviewed, and WBC 27,000, Hgb 7.8. Patient seen/examined, resting in bed in the ICU, NAD.labs reviewed, and fair. Patient seen/examined, resting in bed, labs reviewed, WBC back up,to37,000, and Hgb down to 7.3, transfusion will be needed ,if hgb less, or equal to 7.0 Patient seen/examined, resting in bed in the ICU, alert, lethargic, labs reviewed, and fair. She remains on 5mics of levophed., Temp 100. Patient seen/examined in the ICU, alert, Labs reviewed, WBC 59,000. Patient seen/examined, resting in bed, labs reviewed, WBC up to 61.9,000, Hgb 7.0, and may benefit from PRBC replacement of 2units with HD. Objective - Constitutional Vitals: Vital Signs - 12hr 09/26/17 09/26/17 09/26/17 08:21 08:31 08:45 Temperature Pulse Rate 103 H 99 H 105 H Respiratory 24 19 Rate Respiratory Rate [ Generalized] Blood Pressure 99/46 112/54 112/54 O2 Sat by Pulse 100 99 100 Oximetry O2 Sat by Pulse Oximetry [ Assessment] 09/26/17 09/26/17 09/26/17 09:00 09:16 09:30 Temperature Pulse Rate 99 H 102 H 101 H Respiratory 24 25 H 22 Rate Respiratory Rate [ Generalized] Blood Pressure 103/48 103/48 O2 Sat by Pulse 81 L Oximetry O2 Sat by Pulse Oximetry [ Assessment] 09/26/17 09/26/17 09/26/17 09:45 09:50 10:00 Temperature Pulse Rate 98 H 98 H Respiratory 19 20 20 Rate Respiratory 23 Rate [ Generalized] Blood Pressure 97/64 97/64 O2 Sat by Pulse 99 100 Oximetry O2 Sat by Pulse Oximetry [ Assessment] 09/26/17 09/26/17 09/26/17 10:16 10:30 10:45 Temperature Pulse Rate 96 H 100 H 99 H Respiratory 21 25 H 19 Rate Respiratory Rate [ Generalized] Blood Pressure 113/48 116/64 107/53 O2 Sat by Pulse 100 Oximetry O2 Sat by Pulse Oximetry [ Assessment] 09/26/17 09/26/17 09/26/17 11:00 11:16 11:30 Temperature Pulse Rate 101 H 106 H 94 H Respiratory 20 23 22 Rate Respiratory Rate [ Generalized] Blood Pressure 98/46 97/51 111/45 O2 Sat by Pulse 96 Oximetry O2 Sat by Pulse Oximetry [ Assessment] 09/26/17 09/26/17 09/26/17 11:44 11:45 12:00 Temperature 98.3 F Pulse Rate 96 H 95 H Respiratory 22 23 Rate Respiratory Rate [ Generalized] Blood Pressure 105/45 108/62 O2 Sat by Pulse 94 100 Oximetry O2 Sat by Pulse Oximetry [ Assessment] 09/26/17 09/26/17 09/26/17 12:15 12:30 12:45 Temperature Pulse Rate 98 H 101 H 99 H Respiratory 22 27 H 18 Rate Respiratory Rate [ Generalized] Blood Pressure 110/51 115/52 111/54 O2 Sat by Pulse Oximetry O2 Sat by Pulse Oximetry [ Assessment] 09/26/17 09/26/17 09/26/17 13:00 13:15 13:30 Temperature Pulse Rate 100 H 92 H 103 H Respiratory 24 23 29 H Rate Respiratory Rate [ Generalized] Blood Pressure 128/53 116/51 103/61 O2 Sat by Pulse Oximetry O2 Sat by Pulse Oximetry [ Assessment] 09/26/17 09/26/17 09/26/17 13:45 14:00 14:15 Temperature Pulse Rate 96 H 102 H 98 H Respiratory 23 29 H 29 H Rate Respiratory Rate [ Generalized] Blood Pressure 96/52 108/62 113/61 O2 Sat by Pulse 99 Oximetry O2 Sat by Pulse Oximetry [ Assessment] 09/26/17 09/26/17 09/26/17 14:27 14:30 14:46 Temperature Pulse Rate 101 H 94 H Respiratory 19 26 H 20 Rate Respiratory Rate [ Generalized] Blood Pressure 93/28 103/47 O2 Sat by Pulse Oximetry O2 Sat by Pulse Oximetry [ Assessment] 09/26/17 09/26/17 09/26/17 15:00 15:16 15:30 Temperature Pulse Rate 102 H 92 H 101 H Respiratory 27 H 22 25 H Rate Respiratory Rate [ Generalized] Blood Pressure 91/49 99/42 99/42 O2 Sat by Pulse 100 Oximetry O2 Sat by Pulse Oximetry [ Assessment] 09/26/17 09/26/17 09/26/17 15:46 16:00 16:15 Temperature 98.0 F Pulse Rate 90 101 H 102 H Respiratory 19 25 H 31 H Rate Respiratory Rate [ Generalized] Blood Pressure 102/44 122/44 97/54 O2 Sat by Pulse 100 Oximetry O2 Sat by Pulse 100 Oximetry [ Assessment] 09/26/17 09/26/17 09/26/17 16:30 16:45 17:00 Temperature Pulse Rate 94 H 96 H 97 H Respiratory 21 25 H 25 H Rate Respiratory Rate [ Generalized] Blood Pressure 112/44 112/52 101/56 O2 Sat by Pulse Oximetry O2 Sat by Pulse Oximetry [ Assessment] 09/26/17 09/26/17 09/26/17 17:15 17:30 17:45 Temperature Pulse Rate 93 H 95 H 93 H Respiratory 21 22 20 Rate Respiratory Rate [ Generalized] Blood Pressure 108/48 117/48 110/45 O2 Sat by Pulse Oximetry O2 Sat by Pulse Oximetry [ Assessment] 09/26/17 09/26/17 09/26/17 18:00 18:15 18:30 Temperature Pulse Rate 97 H 93 H 96 H Respiratory 22 21 23 Rate Respiratory Rate [ Generalized] Blood Pressure 118/52 122/44 134/53 O2 Sat by Pulse 100 100 Oximetry O2 Sat by Pulse Oximetry [ Assessment] 09/26/17 09/26/17 09/26/17 18:45 19:00 19:15 Temperature Pulse Rate 98 H 98 H 100 H Respiratory 28 H 25 H 25 H Rate Respiratory 23 Rate [ Generalized] Blood Pressure 109/45 109/45 97/49 O2 Sat by Pulse 99 95 Oximetry O2 Sat by Pulse Oximetry [ Assessment] 09/26/17 09/26/17 09/26/17 19:30 19:46 19:51 Temperature 99.5 F Pulse Rate 101 H 100 H Respiratory 25 H Rate Respiratory Rate [ Generalized] Blood Pressure 96/73 103/45 O2 Sat by Pulse 101 H Oximetry O2 Sat by Pulse Oximetry [ Assessment] General appearance: Present: severe distress - EENT Eyes: PERRL, EOM intact ENT: hearing intact, clear oral mucosa Ears: bilateral: normal - Neck Neck: supple, normal ROM - Respiratory Respiratory: bilateral: diminished - Breasts Breasts: deferred - Cardiovascular Rhythm: regular Heart Sounds: Present: S1 & S2. Absent: gallop, rub Extremities: pulses intact, No edema, normal color, Full ROM - Gastrointestinal General gastrointestinal: Present: soft, non-tender, non-distended, normal bowel sounds Rectal Exam: deferred - Genitourinary Female genitourinary: deferred - Integumentary Integumentary: clear, warm, dry - Labs CBC & Chem 7: 09/26/17 05:25 09/26/17 05:25 Labs: Abnormal lab results 09/25/17 09/25/17 09/25/17 Range/Units 11:36 16:11 23:38 WBC (4.5-11.0) K/mm3 RBC (3.65-5.03) M/mm3 Hgb (10.1-14.3) gm/dl Hct (30.3-42.9) % RDW (13.2-15.2) % Lymphocytes % (Manual) (13.4-35.0) % Nucleated RBC % (0.0-0.9) % Seg Neutrophils # Man (1.8-7.7) K/mm3 Lymphocytes # (Manual) (1.2-5.4) K/mm3 Monocytes # (Manual) (0.0-0.8) K/mm3 Carbon Dioxide (22-30) mmol/L BUN (7-17) mg/dL Creatinine (0.7-1.2) mg/dL Glucose (65-100) mg/dL POC Glucose 308 H 249 H 263 H (70-105) Calcium (8.4-10.2) mg/dL 09/26/17 09/26/17 09/26/17 Range/Units 05:25 05:25 05:32 WBC 61.9 H* (4.5-11.0) K/mm3 RBC 2.30 L (3.65-5.03) M/mm3 Hgb 7.0 L (10.1-14.3) gm/dl Hct 21.4 L (30.3-42.9) % RDW 21.3 H (13.2-15.2) % Lymphocytes % (Manual) 1.0 L (13.4-35.0) % Nucleated RBC % 7.0 H (0.0-0.9) % Seg Neutrophils # Man 37.1 H (1.8-7.7) K/mm3 Lymphocytes # (Manual) 0.6 L (1.2-5.4) K/mm3 Monocytes # (Manual) 1.9 H (0.0-0.8) K/mm3 Carbon Dioxide 21 L (22-30) mmol/L BUN 81 H (7-17) mg/dL Creatinine 2.3 H (0.7-1.2) mg/dL Glucose 178 H (65-100) mg/dL POC Glucose 225 H (70-105) Calcium 8.1 L (8.4-10.2) mg/dL 09/26/17 09/26/17 Range/Units 11:33 17:43 WBC (4.5-11.0) K/mm3 RBC (3.65-5.03) M/mm3 Hgb (10.1-14.3) gm/dl Hct (30.3-42.9) % RDW (13.2-15.2) % Lymphocytes % (Manual) (13.4-35.0) % Nucleated RBC % (0.0-0.9) % Seg Neutrophils # Man (1.8-7.7) K/mm3 Lymphocytes # (Manual) (1.2-5.4) K/mm3 Monocytes # (Manual) (0.0-0.8) K/mm3 Carbon Dioxide (22-30) mmol/L BUN (7-17) mg/dL Creatinine (0.7-1.2) mg/dL Glucose (65-100) mg/dL POC Glucose 246 H 180 H (70-105) Calcium (8.4-10.2) mg/dL
[2017-09-27] MEDS: NOVOLOG SUB-Q SCH ×4 (00:16→17:51)
[2017-09-27] MEDS: LEVOPHED 8 MG in NACL 0.9% 250ML 242 ML IV SCH ×2 (03:40→15:40)
[2017-09-27 05:13] LABS: Hematocrit 20.6 % (30.3-42.9); Hemoglobin 6.3 gm/dl (10.1-14.3); Mean Corpuscular HGB Conc 31 % (30-34); Mean Corpuscular Hemoglobin 28 pg (28-32); Mean Corpuscular Volume 93 fl (79-97); Platelet Count 339 K/mm3 (140-440); Red Blood Count 2.23 M/mm3 (3.65-5.03)
[2017-09-27 05:29] LABS: Red Cell Distribution Width 20.6 % (13.2-15.2)
[2017-09-27 05:40] LABS: Calcium 8.1 mg/dL (8.4-10.2); Chloride 101.9 mmol/L (98-107); Potassium 4.3 mmol/L (3.6-5.0)
[2017-09-27 06:31] LABS: Basophils % (Manual) 0 % (0.0-1.8); Blastocytes % (Manual) 0 %; Eosinophils % (Manual) 0 % (0.0-4.3)
[2017-09-27 06:32] LABS: Anisocytosis 1+; Hypochromasia 1+; Polychromasia Few
[2017-09-27 06:33] LABS: Diff Status Complete; Large Platelets 1+
[2017-09-27 07:44] LABS: Magnesium 2.4 mg/dL (1.7-2.3); Phosphorous 3.9 mg/dL (2.5-4.5)
[2017-09-27] MEDS ORDERED: NACL 0.9% 500 ML 500 ML IV NR (09:00)
[2017-09-27] MEDS ORDERED: NACL 0.9% 100 ML IV PRN (09:10)
--- NOTE | 2017-09-27 09:10 | Progress Note ---
Assessment and Plan - Patient Problems (1) ESRD (end stage renal disease) on dialysis Current Visit: Yes Status: Acute Plan to address problem: Continue HD on MWF and Isolated UF on TTS as tolerated. HD today. Patient is on TPN. Monitor lytes. S/p switched from PD. (2) Anemia Current Visit: No Status: Chronic Qualifiers: Anemia type: due to chronic kidney disease Iron deficiency anemia type: I Vitamin B12 deficiency anemia type: V Folate deficiency anemia type: F Bone marrow failure anemia type: B Hemolytic anemia type: H Other causes of anemia: O Chronic kidney disease stage: on chronic dialysis Qualified Code(s ): N18.6 - End stage renal disease; D63.1 - Anemia in chronic kidney disease; Z99.2 - Dependence on renal dialysis Plan to address problem: S/p multiple units of PRBC. Patient continues to drop Hb level. Transfusion today with hemodialysis. Epogen on dialysis days. (3) Hypotension Current Visit: Yes Status: Chronic Qualifiers: Hypotension type: H Trimester: T Plan to address problem: On Levophed. (4) Volume overload Current Visit: Yes Status: Acute Qualifiers: Hypervolemia type: H Plan to address problem: UF as tolerated. (5) Leukocytosis Current Visit: Yes Status: Acute Qualifiers: Leukocytosis type: unspecified Qualified Code(s): D72.829 - Elevated white blood cell count, unspecified (6) Acute respiratory failure with hypoxemia Current Visit: Yes Status: Acute Plan to address problem: On the vent. (7) Sepsis Current Visit: Yes Status: Acute Qualifiers: Sepsis type: S Subjective Date of service: 09/27/17 Principal diagnosis: respiratory failure, sepsis, shock rectal bleeding Interval history: Patient was seen and examined at the bedside. Remain on the vent. Objective - Vital Signs Vital signs: Vital Signs - 12hr 09/26/17 09/26/17 09/26/17 21:15 21:30 21:45 Temperature Pulse Rate 96 H 100 H 95 H Respiratory 24 22 21 Rate Respiratory Rate [ Generalized] Blood Pressure 125/72 132/53 136/54 O2 Sat by Pulse 100 80 L Oximetry 09/26/17 09/26/17 09/26/17 22:00 22:15 22:30 Temperature Pulse Rate 97 H 99 H 102 H Respiratory 24 24 25 H Rate Respiratory 23 Rate [ Generalized] Blood Pressure 121/58 120/69 120/69 O2 Sat by Pulse 100 100 Oximetry 09/26/17 09/26/17 09/26/17 22:45 23:00 23:16 Temperature Pulse Rate 96 H 103 H 101 H Respiratory 23 32 H 28 H Rate Respiratory Rate [ Generalized] Blood Pressure 89/50 94/58 86/59 O2 Sat by Pulse 100 Oximetry 09/26/17 09/26/17 09/26/17 23:30 23:41 23:46 Temperature 98.8 F Pulse Rate 100 H 102 H 97 H Respiratory 25 H 27 H Rate Respiratory Rate [ Generalized] Blood Pressure 121/53 86/59 98/66 O2 Sat by Pulse 100 100 Oximetry 09/27/17 09/27/17 09/27/17 00:00 00:15 00:16 Temperature Pulse Rate 94 H 106 H 106 H Respiratory 19 23 20 Rate Respiratory Rate [ Generalized] Blood Pressure 122/45 118/49 O2 Sat by Pulse 100 100 Oximetry 09/27/17 09/27/17 09/27/17 00:30 00:45 01:00 Temperature Pulse Rate 101 H 96 H 102 H Respiratory 25 H 22 24 Rate Respiratory Rate [ Generalized] Blood Pressure 116/44 113/51 107/47 O2 Sat by Pulse 97 Oximetry 09/27/17 09/27/17 09/27/17 01:15 01:30 01:45 Temperature Pulse Rate 94 H 92 H 100 H Respiratory 22 21 28 H Rate Respiratory Rate [ Generalized] Blood Pressure 105/48 106/50 87/61 O2 Sat by Pulse Oximetry 09/27/17 09/27/17 09/27/17 02:00 02:15 02:16 Temperature Pulse Rate 91 H 95 H 95 H Respiratory 21 23 23 Rate Respiratory Rate [ Generalized] Blood Pressure 100/48 102/49 O2 Sat by Pulse 100 Oximetry 09/27/17 09/27/17 09/27/17 02:30 02:45 03:00 Temperature Pulse Rate 101 H 97 H 100 H Respiratory 23 23 21 Rate Respiratory Rate [ Generalized] Blood Pressure 109/51 104/54 104/54 O2 Sat by Pulse Oximetry 09/27/17 09/27/17 09/27/17 03:12 03:16 03:30 Temperature 99.2 F Pulse Rate 96 H 109 H Respiratory 21 29 H Rate Respiratory Rate [ Generalized] Blood Pressure 105/48 105/48 O2 Sat by Pulse Oximetry 09/27/17 09/27/17 09/27/17 03:40 03:45 04:00 Temperature Pulse Rate 95 H 95 H 94 H Respiratory 14 20 23 Rate Respiratory Rate [ Generalized] Blood Pressure 121/56 116/47 O2 Sat by Pulse 100 Oximetry 09/27/17 09/27/17 09/27/17 04:16 04:30 04:31 Temperature Pulse Rate 95 H 92 H 98 H Respiratory 28 H 19 Rate Respiratory Rate [ Generalized] Blood Pressure 119/54 120/44 120/44 O2 Sat by Pulse 100 Oximetry 09/27/17 09/27/17 09/27/17 04:45 05:00 05:16 Temperature Pulse Rate 89 96 H 101 H Respiratory 22 25 H 25 H Rate Respiratory Rate [ Generalized] Blood Pressure 116/37 123/45 120/44 O2 Sat by Pulse 100 Oximetry 09/27/17 09/27/17 09/27/17 05:30 05:45 05:51 Temperature Pulse Rate 93 H 92 H Respiratory 22 22 21 Rate Respiratory Rate [ Generalized] Blood Pressure 125/49 120/47 O2 Sat by Pulse 100 Oximetry 09/27/17 09/27/17 09/27/17 06:00 06:15 06:30 Temperature Pulse Rate 103 H 96 H 98 H Respiratory 26 H 23 18 Rate Respiratory Rate [ Generalized] Blood Pressure 109/61 125/48 121/40 O2 Sat by Pulse 91 Oximetry 09/27/17 09/27/17 09/27/17 06:45 07:00 07:15 Temperature Pulse Rate 96 H 94 H 98 H Respiratory 24 28 H 22 Rate Respiratory Rate [ Generalized] Blood Pressure 114/49 107/55 112/51 O2 Sat by Pulse Oximetry 09/27/17 09/27/17 09/27/17 07:30 07:45 08:00 Temperature 97.1 F L Pulse Rate 96 H 99 H 95 H Respiratory 26 H 25 H 22 Rate Respiratory Rate [ Generalized] Blood Pressure 111/49 101/44 99/47 O2 Sat by Pulse Oximetry 09/27/17 09/27/17 08:15 08:30 Temperature Pulse Rate 100 H 96 H Respiratory 24 21 Rate Respiratory Rate [ Generalized] Blood Pressure 107/70 119/32 O2 Sat by Pulse Oximetry - General Appearance General appearance: well-developed, appears stated age, obese, other (on the vent, FiO2 25%) EENT: ATNC, PERRL Neck: supple Respiratory: Present: Clear to Ascultation Cardiology: regular, S1S2 Gastrointestinal: other (ostomy, dressing, MERVIN drain noted) Integumentary: no rash Neurologic: other (non-verbal, not following any command) Musculoskeletal: other (1-2+ edema noted) - Lab 09/27/17 04:00 09/27/17 04:00 Most recent lab results ABG pH 7.323 pH Units (7.350-7.450) L 09/09/17 Unknown ABG pCO2 41.1 mm Hg 09/09/17 Unknown ABG pO2 94.1 mm Hg (80.0-90.0) H 09/09/17 Unknown ABG HCO3 20.9 mmol/L (20.0-26.0) 09/09/17 Unknown ABG O2 Saturation 97.2 % (95.0-99.0) 09/09/17 Unknown Calcium 8.1 mg/dL (8.4-10.2) L 09/27/17 04:00 Phosphorus 3.90 mg/dL (2.5-4.5) 09/27/17 04:00 Magnesium 2.40 mg/dL (1.7-2.3) H 09/27/17 04:00
[2017-09-27] MEDS: DIFLUCAN 200 MG/100 ML BAG IV SCH (09:49)
[2017-09-27] MEDS: PROTONIX IV SCH (09:50)
[2017-09-27] MEDS: MERREM 1,000 MG in NACL 0.9% 100 ML IV SCH (09:50)
[2017-09-27] MEDS: LEVEMIR SUB-Q SCH (09:50)
--- NOTE | 2017-09-27 09:55 | Progress Note ---
Assessment and Plan 62 y.o. F s/p ex lap, repair of enterotomy, then s/p ex lap, transverse colon resection, colostomy creation, and s/p ex lap, abdominal wash out and abdominal wall closure after wound dehiscence 3 weeks s/p ex lap for gastric perforation and sbo. complicated patient with hx of several abdominal procedures this admission, starting with surgery for SBO and gastric perforation. Most recently, s/p exlap and repair of enterotomy and midline closure with biologic mesh due to dehiscence tachycardia improving but still requiring pressor support afebrile leukocytosis, very high, likely reactive in nature but will continue abx per ID will continue dressing changes and TPN for nutritional support. -Will discuss possible use of wound vac with wound care nurse. -Monitor ostomy site -clamp G tube. -DC NG tube e Renal : HD per renal DVT proph: scds GI: PPI. - Patient Problems (1) Peritonitis (acute) generalized Current Visit: Yes Status: Acute Subjective Narrative: Pt seen and examined at bedside. Pt on Levo at 10. HD could not be done yesterday due to hypotension. Pt awake but minimally response. She withdrawls to pain. OUtputs: Ng minimal MERVIN lower : 320cc/24 hrs. serosang Murky drk red upper: 70cc /24hrs. serosang G tube 200 cc bilious Colostomy: minimal liquid stool in bag. no air Objective Vital Signs - 12hr 09/26/17 09/26/17 09/26/17 22:00 22:15 22:30 Temperature Pulse Rate 97 H 99 H 102 H Respiratory 24 24 25 H Rate Respiratory 23 Rate [ Generalized] Blood Pressure 121/58 120/69 120/69 O2 Sat by Pulse 100 100 Oximetry 09/26/17 09/26/17 09/26/17 22:45 23:00 23:16 Temperature Pulse Rate 96 H 103 H 101 H Respiratory 23 32 H 28 H Rate Respiratory Rate [ Generalized] Blood Pressure 89/50 94/58 86/59 O2 Sat by Pulse 100 Oximetry 09/26/17 09/26/17 09/26/17 23:30 23:41 23:46 Temperature 98.8 F Pulse Rate 100 H 102 H 97 H Respiratory 25 H 27 H Rate Respiratory Rate [ Generalized] Blood Pressure 121/53 86/59 98/66 O2 Sat by Pulse 100 100 Oximetry 09/27/17 09/27/17 09/27/17 00:00 00:15 00:16 Temperature Pulse Rate 94 H 106 H 106 H Respiratory 19 23 20 Rate Respiratory Rate [ Generalized] Blood Pressure 122/45 118/49 O2 Sat by Pulse 100 100 Oximetry 09/27/17 09/27/17 09/27/17 00:30 00:45 01:00 Temperature Pulse Rate 101 H 96 H 102 H Respiratory 25 H 22 24 Rate Respiratory Rate [ Generalized] Blood Pressure 116/44 113/51 107/47 O2 Sat by Pulse 97 Oximetry 09/27/17 09/27/17 09/27/17 01:15 01:30 01:45 Temperature Pulse Rate 94 H 92 H 100 H Respiratory 22 21 28 H Rate Respiratory Rate [ Generalized] Blood Pressure 105/48 106/50 87/61 O2 Sat by Pulse Oximetry 09/27/17 09/27/17 09/27/17 02:00 02:15 02:16 Temperature Pulse Rate 91 H 95 H 95 H Respiratory 21 23 23 Rate Respiratory Rate [ Generalized] Blood Pressure 100/48 102/49 O2 Sat by Pulse 100 Oximetry 09/27/17 09/27/17 09/27/17 02:30 02:45 03:00 Temperature Pulse Rate 101 H 97 H 100 H Respiratory 23 23 21 Rate Respiratory Rate [ Generalized] Blood Pressure 109/51 104/54 104/54 O2 Sat by Pulse Oximetry 09/27/17 09/27/17 09/27/17 03:12 03:16 03:30 Temperature 99.2 F Pulse Rate 96 H 109 H Respiratory 21 29 H Rate Respiratory Rate [ Generalized] Blood Pressure 105/48 105/48 O2 Sat by Pulse Oximetry 09/27/17 09/27/17 09/27/17 03:40 03:45 04:00 Temperature Pulse Rate 95 H 95 H 94 H Respiratory 14 20 23 Rate Respiratory Rate [ Generalized] Blood Pressure 121/56 116/47 O2 Sat by Pulse 100 Oximetry 09/27/17 09/27/17 09/27/17 04:16 04:30 04:31 Temperature Pulse Rate 95 H 92 H 98 H Respiratory 28 H 19 Rate Respiratory Rate [ Generalized] Blood Pressure 119/54 120/44 120/44 O2 Sat by Pulse 100 Oximetry 09/27/17 09/27/17 09/27/17 04:45 05:00 05:16 Temperature Pulse Rate 89 96 H 101 H Respiratory 22 25 H 25 H Rate Respiratory Rate [ Generalized] Blood Pressure 116/37 123/45 120/44 O2 Sat by Pulse 100 Oximetry 09/27/17 09/27/17 09/27/17 05:30 05:45 05:51 Temperature Pulse Rate 93 H 92 H Respiratory 22 22 21 Rate Respiratory Rate [ Generalized] Blood Pressure 125/49 120/47 O2 Sat by Pulse 100 Oximetry 09/27/17 09/27/17 09/27/17 06:00 06:15 06:30 Temperature Pulse Rate 103 H 96 H 98 H Respiratory 26 H 23 18 Rate Respiratory Rate [ Generalized] Blood Pressure 109/61 125/48 121/40 O2 Sat by Pulse 91 Oximetry 09/27/17 09/27/17 09/27/17 06:45 07:00 07:15 Temperature Pulse Rate 96 H 94 H 98 H Respiratory 24 28 H 22 Rate Respiratory Rate [ Generalized] Blood Pressure 114/49 107/55 112/51 O2 Sat by Pulse Oximetry 09/27/17 09/27/17 09/27/17 07:30 07:45 08:00 Temperature 97.1 F L Pulse Rate 96 H 99 H 95 H Respiratory 26 H 25 H 22 Rate Respiratory Rate [ Generalized] Blood Pressure 111/49 101/44 99/47 O2 Sat by Pulse Oximetry 09/27/17 09/27/17 08:15 08:30 Temperature Pulse Rate 100 H 96 H Respiratory 24 21 Rate Respiratory Rate [ Generalized] Blood Pressure 107/70 119/32 O2 Sat by Pulse Oximetry - General physical appearance chronically ill, obese - Respiratory normal expansion, normal respiratory effort, other (vent ) - Abdomen soft, other (midline dressing removed- serosang from midline wound. fascia intact. retention sutures in place. irrigated then repaced with wet to dry. ostomy: no air in bag. stoma patent, green/black slough at stoma pink center. minimal liquid stool in bag. JPx [address] G tube in place. ) - Neurologic other (retracts upper extermities to pain) - Labs 09/27/17 04:00 09/27/17 04:00 Diabetes panel 09/27/17 Range/Units 04:00 Sodium 143 (137-145) mmol/L Potassium 4.3 (3.6-5.0) mmol/L Chloride 101.9 (98-107) mmol/L Carbon Dioxide 19 L (22-30) mmol/L BUN 102 H (7-17) mg/dL Creatinine 2.8 H (0.7-1.2) mg/dL Glucose 141 H (65-100) mg/dL Calcium 8.1 L (8.4-10.2) mg/dL Calcium panel 09/27/17 09/27/17 Range/Units 04:00 04:00 Calcium 8.1 L (8.4-10.2) mg/dL Phosphorus 3.90 (2.5-4.5) mg/dL Pituitary panel 09/27/17 Range/Units 04:00 Sodium 143 (137-145) mmol/L Potassium 4.3 (3.6-5.0) mmol/L Chloride 101.9 (98-107) mmol/L Carbon Dioxide 19 L (22-30) mmol/L BUN 102 H (7-17) mg/dL Creatinine 2.8 H (0.7-1.2) mg/dL Glucose 141 H (65-100) mg/dL Calcium 8.1 L (8.4-10.2) mg/dL Adrenal panel 09/27/17 Range/Units 04:00 Sodium 143 (137-145) mmol/L Potassium 4.3 (3.6-5.0) mmol/L Chloride 101.9 (98-107) mmol/L Carbon Dioxide 19 L (22-30) mmol/L BUN 102 H (7-17) mg/dL Creatinine 2.8 H (0.7-1.2) mg/dL Glucose 141 H (65-100) mg/dL Calcium 8.1 L (8.4-10.2) mg/dL
--- NOTE | 2017-09-27 11:39 | Progress Note ---
Assessment and Plan Assessment: 1) Sepsis with septic shock: worsening leukocytosis, still on pressors 2) Initial Bowel obstruction / suspect ?gastric perforation ? peritonitis -S/P Exlap, G-tube placement, EGD, abdominal washout and removal of PD -OR findings - bowel obstruction due to entanglement of PD cath, abscess cavity in LUQ and ? suspect perforation of unclear location 3) Intiial CA-UTI: chronic ivan exchanged every 4 weeks and ureteral stents in place which are exchanged every 6 months 4) Paraplegia 5) ESRD on PD - now on HD 6) Recent pancreatitis 7) Penicillin allergy-has taken keflex w/o problems 8) Presumed Surgical wound infection / dehiscence ? 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 11) Anemia- severe- Hg 6.7 today 12) Colonic perforation -S/P exlap, transverse colectomy, right sided colostomy and wash out on 09/15 -?presumed leak -surgical wound + Kristine and MDR Acinetobacter 13) Small bowell enterotomy leak / peritonitis s/p wash out / biologic mesh placement / closure of small bowel enterotomy on 09/24 Plan: -continue meropenem and fluconazole -contact isolation -consider art line since cuff measurements are inaccurate I am covering this weekend Thank you Dr Chen for your consultation, will follow up with you. Ramya Lang MD Infectious Diseases Specialist [facility] ([facility] M [phone] O [phone] Subjective Date of service: 09/27/17 Principal diagnosis: respiratory failure, sepsis, shock rectal bleeding Interval history: Pt remains on the vent still levophed at 7.5 mcg on TPN, fentanyl, no fever. Microbiology: Blood cultures: 08/08 neg 08/12 neg 08/16 neg 08/20 neg 08/29 neg 09/06 neg 09/12 ngtd Urine cultures: 08/08 10-100K skin grace Respiratory cultures: 08/30 tracheal asp MRSA Wound cultures: 08/26 Staph aureus and Kristine 08/28 MRSA, E faecalis, Kristine albicans 09/20 MDR Acinetobacter and Kristine albicans Stool cultures: Other: 08/08 peritoneal fluid + TINTER PHOTOGRAPH/Diphteroids Current Antimicrobials: meropenem 09/25 fluconazole 09/24 Previous Antimicrobials: 08/10 levaquin 08/16 vancomycin 08/13 meropenem 08/16 fluconazole Micafungin 08/29 meropenem 08/29 zyvox 09/03 fluconazole 09/03 dapto 09/10 meropenem 09/09-09/22 micafungin 09/11-09/21 Objective - Exam Narrative Exam: General appearance: alert this am on vent via trach Eyes: anicteric sclerae, moist conjunctivae; no lid-lag; PERRLA HENT: Atraumatic; NGT Neck: Trach in place Lungs: coarse BS moreno CV: RRR Abdomen: soft, midline surgical wound + ostomy. MERVIN drains with minimal output, LLQ drain slightly seropurulent, LUQ drain serosanguenous. G tube to OSD with yellow output per surgical eval. Extremities: + peripheral edema + leg ulcer no drainage Skin: right groin old fem line wound no erythema, no drainage Psych: sedated. Neuro: sedated Lines: right IJ vas cath / Right IJ Nair 08/16 - Constitutional Vitals: Vital Signs Temp Pulse Resp BP Pulse Ox 97.3 F L 102 H 25 H 87/59 99 09/27/17 11:18 09/27/17 11:30 09/27/17 11:18 09/27/17 11:30 09/27/17 11:18 Temperature -Last 24 Hours Temperature 97.3 F Temperature 97.3 F Temperature 97.0 F Temperature 97.0 F Temperature 97.1 F Temperature 99.2 F Temperature 98.8 F Temperature 99.5 F Temperature 98.0 F Temperature 98.3 F - Labs CBC & Chem 7: 09/27/17 04:00 09/27/17 04:00 Labs: Abnormal lab results 09/26/17 09/26/17 09/27/17 Range/Units 11:33 17:43 00:11 WBC (4.5-11.0) K/mm3 RBC (3.65-5.03) M/mm3 Hgb (10.1-14.3) gm/dl Hct (30.3-42.9) % RDW (13.2-15.2) % Lymphocytes % (Manual) (13.4-35.0) % Nucleated RBC % (0.0-0.9) % Seg Neutrophils # Man (1.8-7.7) K/mm3 Monocytes # (Manual) (0.0-0.8) K/mm3 Carbon Dioxide (22-30) mmol/L BUN (7-17) mg/dL Creatinine (0.7-1.2) mg/dL Glucose (65-100) mg/dL POC Glucose 246 H 180 H 194 H (70-105) Calcium (8.4-10.2) mg/dL Magnesium (1.7-2.3) mg/dL Crossmatch 09/27/17 09/27/17 09/27/17 Range/Units 04:00 04:00 04:00 WBC 63.0 H* (4.5-11.0) K/mm3 RBC 2.23 L (3.65-5.03) M/mm3 Hgb 6.3 L (10.1-14.3) gm/dl Hct 20.6 L (30.3-42.9) % RDW 20.6 H (13.2-15.2) % Lymphocytes % (Manual) 3.0 L (13.4-35.0) % Nucleated RBC % 6.0 H (0.0-0.9) % Seg Neutrophils # Man 40.3 H (1.8-7.7) K/mm3 Monocytes # (Manual) 4.4 H (0.0-0.8) K/mm3 Carbon Dioxide 19 L (22-30) mmol/L BUN 102 H (7-17) mg/dL Creatinine 2.8 H (0.7-1.2) mg/dL Glucose 141 H (65-100) mg/dL POC Glucose (70-105) Calcium 8.1 L (8.4-10.2) mg/dL Magnesium 2.40 H (1.7-2.3) mg/dL Crossmatch 09/27/17 09/27/17 Range/Units 05:11 08:58 WBC (4.5-11.0) K/mm3 RBC (3.65-5.03) M/mm3 Hgb (10.1-14.3) gm/dl Hct (30.3-42.9) % RDW (13.2-15.2) % Lymphocytes % (Manual) (13.4-35.0) % Nucleated RBC % (0.0-0.9) % Seg Neutrophils # Man (1.8-7.7) K/mm3 Monocytes # (Manual) (0.0-0.8) K/mm3 Carbon Dioxide (22-30) mmol/L BUN (7-17) mg/dL Creatinine (0.7-1.2) mg/dL Glucose (65-100) mg/dL POC Glucose 189 H (70-105) Calcium (8.4-10.2) mg/dL Magnesium (1.7-2.3) mg/dL Crossmatch See Detail
--- NOTE | 2017-09-27 11:49 | Progress Note ---
Assessment and Plan Assessment and plan: Septic shock. Patient with previous abdominal abscess and CAUTI. ID following. Cont. meropenem and fluconazole (previous agents - meropenem/ micafungin for Presumed Surgical wound infection / dehiscence ? wound + MRSA, E faecalis and Kristine albicans) Pt. with recent small bowel enterotomy leak. Worsening leukocytosis. Patient still requiring pressors. Acute hypoxic respiratory failure. Patient remains on mechanical ventilation. Continue weaning per pulmonary MRSA in tracheal aspirate ? colonizer versus VAP Peritonitis/intra-abdominal abscess/ Initial Bowel obstruction (related to likely gastric perforation). 09/24/17: ex lap with abdominal washout and placement of biologic mesh and proximal aspect of midline wound, closure of enterotomy 09/15/17: Ex lap, transverse colectomy, R colostomy and abdominal wash out 08/31: Ex lap with abdominal wash out and closure 08/17: Ex lap with G tube placement, EGD, abdominal wash out and removal of PD Cath (OR findings - bowel obstruction due to entanglement of PD cath, abscess cavity in LUQ and ? suspect perforation of unclear location) Cont. TPN End-stage renal disease -patient previously with peritoneal dialysis that has been discontinued -Hemodialysis per nephrology. -needs perm cath when improved Anemia -etiology, likely secondary to blood loss anemia. Transfuse 2 units PRBCs with Hemodialysis. No active bleeding Ulcerative esophagitis/small gastric ulcer. Patient status post EGD. s/p multiple transfusions -Patient had CTA of abdomen and pelvis that revealed no active bleeding, CT Abdomen repeated 09/06, no acute findings CAUTI. Completed antibiotics Protein calorie malnutrition. -Continue TPN. Leukocytosis. -worse- -ID following -Follow up CBC Recent pancreatitis. resolved Penicillin allergy-has taken keflex w/o problems in past NSVT cardiology believes that etiology was secondary to Levophed which now has been weaned off History of cervical surgery and postoperative wheelchair bound since then - pain control DVT prophylaxis Disposition - Prognosis is extremely guarded. The high probability of a clinically significant, sudden or life threatening deterioration of the [hemodynamic, respiratory] system(s) required my full and direct attention, intervention and personal management. The aggregate critical care time was [32] minutes. This time is in addition to time spent performing reported procedures but includes the following: [x] Data Review and interpretation [x] Patient assessment and monitoring of vital signs [x] Documentation [x] Medication orders and management History Interval history: Patient still remains critically ill requiring pressors on [facility] vent Hospitalist Physical - Constitutional Vitals: Temp Pulse Resp BP Pulse Ox 97.3 F L 102 H 26 H 87/59 99 09/27/17 11:18 09/27/17 11:30 09/27/17 11:30 09/27/17 11:30 09/27/17 11:18 General appearance: Present: severe distress - EENT Eyes: Present: PERRL, EOM intact ENT: hearing intact, clear oral mucosa, dentition normal - Neck Neck: Present: supple, normal ROM - Respiratory Respiratory effort: normal Respiratory: bilateral: CTA - Cardiovascular Rhythm: regular Heart Sounds: Present: S1 & S2. Absent: gallop, rub - Extremities Extremities: no ischemia, No edema, Full ROM - Abdominal General gastrointestinal: soft, non-tender, non-distended, normal bowel sounds - Integumentary Integumentary: Present: clear, warm, dry - Neurologic Neurologic: CNII-XII intact, moves all extremities Results - Labs CBC & Chem 7: 09/27/17 04:00 09/27/17 04:00 Labs: Laboratory Last Values WBC 63.0 K/mm3 (4.5-11.0) H* 09/27/17 04:00 RBC 2.23 M/mm3 (3.65-5.03) L 09/27/17 04:00 Hgb 6.3 gm/dl (10.1-14.3) L 09/27/17 04:00 Hct 20.6 % (30.3-42.9) L 09/27/17 04:00 MCV 93 fl (79-97) 09/27/17 04:00 MCH 28 pg (28-32) 09/27/17 04:00 MCHC 31 % (30-34) 09/27/17 04:00 RDW 20.6 % (13.2-15.2) H 09/27/17 04:00 Plt Count 339 K/mm3 (140-440) 09/27/17 04:00 Lymph % (Auto) Pipe Recovery Specialist 08/19/17 07:37 Garfield % (Auto) Pipe Recovery Specialist 09/24/17 04:00 Eos % (Auto) Pipe Recovery Specialist 08/19/17 07:37 Baso % (Auto) Pipe Recovery Specialist 08/19/17 07:37 Lymph # Pipe Recovery Specialist 09/26/17 05:25 Garfield # Pipe Recovery Specialist 08/19/17 07:37 Eos # Pipe Recovery Specialist 08/19/17 07:37 Baso # Pipe Recovery Specialist 08/19/17 07:37 Add Manual Diff Complete 09/27/17 04:00 Total Counted 200 09/27/17 04:00 Seg Neutrophils % Pipe Recovery Specialist 09/08/17 04:05 Seg Neuts % (Manual) 64.0 % (40.0-70.0) 09/27/17 04:00 Band Neutrophils % 3.5 % 09/27/17 04:00 Lymphocytes % (Manual) 3.0 % (13.4-35.0) L 09/27/17 04:00 Reactive Lymphs % (Man) 0 % 09/27/17 04:00 Monocytes % (Manual) 7.0 % (0.0-7.3) 09/27/17 04:00 Eosinophils % (Manual) 0 % (0.0-4.3) 09/27/17 04:00 Basophils % (Manual) 0 % (0.0-1.8) 09/27/17 04:00 Metamyelocytes % 5.0 % 09/27/17 04:00 Myelocytes % 14.5 % 09/27/17 04:00 Promyelocytes % 3.0 % 09/27/17 04:00 Blast Cells % 0 % 09/27/17 04:00 Nucleated RBC % 6.0 % (0.0-0.9) H 09/27/17 04:00 Seg Neutrophils # Pipe Recovery Specialist 08/19/17 07:37 Seg Neutrophils # Man 40.3 K/mm3 (1.8-7.7) H 09/27/17 04:00 Band Neutrophils # 2.2 K/mm3 09/27/17 04:00 Lymphocytes # (Manual) 1.9 K/mm3 (1.2-5.4) 09/27/17 04:00 Abs React Lymphs (Man) 0.0 K/mm3 09/27/17 04:00 Monocytes # (Manual) 4.4 K/mm3 (0.0-0.8) H 09/27/17 04:00 Eosinophils # (Manual) 0.0 K/mm3 (0.0-0.4) 09/27/17 04:00 Basophils # (Manual) 0.0 K/mm3 (0.0-0.1) 09/27/17 04:00 Metamyelocytes # 3.2 K/mm3 09/27/17 04:00 Myelocytes # 9.1 K/mm3 09/27/17 04:00 Promyelocytes # 1.9 K/mm3 09/27/17 04:00 Blast Cells # 0.0 K/mm3 09/27/17 04:00 Pathologist Review Not Reportable 08/30/17 05:20 WBC Morphology Not Reportable 09/27/17 04:00 Hypersegmented Neuts Not Reportable 09/27/17 04:00 Hyposegmented Neuts Not Reportable 09/27/17 04:00 Hypogranular Neuts Not Reportable 09/27/17 04:00 Smudge Cells Not Reportable 09/27/17 04:00 Toxic Granulation Not Reportable 09/27/17 04:00 Toxic Vacuolation Not Reportable 09/27/17 04:00 Dohle Bodies Not Reportable 09/27/17 04:00 Pelger-Huet Anomaly Not Reportable 09/27/17 04:00 Ariel Rods Not Reportable 09/27/17 04:00 Platelet Estimate Appears normal 09/27/17 04:00 Clumped Platelets Not Reportable 09/27/17 04:00 Plt Clumps, EDTA Not Reportable 09/27/17 04:00 Large Platelets 1+ 09/27/17 04:00 Giant Platelets Not Reportable 09/27/17 04:00 Platelet Satelliting Not Reportable 09/27/17 04:00 Plt Morphology Comment Not Reportable 09/27/17 04:00 RBC Morphology Not Reportable 09/27/17 04:00 Dimorphic RBCs Not Reportable 09/27/17 04:00 Polychromasia Few 09/27/17 04:00 Hypochromasia 1+ 09/27/17 04:00 Poikilocytosis Not Reportable 09/27/17 04:00 Anisocytosis 1+ 09/27/17 04:00 Microcytosis Not Reportable 09/27/17 04:00 Macrocytosis Not Reportable 09/27/17 04:00 Spherocytes Not Reportable 09/27/17 04:00 Pappenheimer Bodies Not Reportable 09/27/17 04:00 Sickle Cells Not Reportable 09/27/17 04:00 Target Cells Not Reportable 09/27/17 04:00 Tear Drop Cells Not Reportable 09/27/17 04:00 Ovalocytes Not Reportable 09/27/17 04:00 Stomatocytes Rare 09/12/17 05:25 Helmet Cells Not Reportable 09/27/17 04:00 [place] Bodies Not Reportable 09/27/17 04:00 Pelican Rings Not Reportable 09/27/17 04:00 Yusuf Cells Not Reportable 09/27/17 04:00 Bite Cells Not Reportable 09/27/17 04:00 Crenated Cell Not Reportable 09/27/17 04:00 Elliptocytes Not Reportable 09/27/17 04:00 Acanthocytes (Spur) Not Reportable 09/27/17 04:00 Rouleaux Not Reportable 09/27/17 04:00 Hemoglobin C Crystals Not Reportable 09/27/17 04:00 Schistocytes Not Reportable 09/27/17 04:00 Malaria parasites Not Reportable 09/27/17 04:00 Jovanni Bodies Not Reportable 09/27/17 04:00 Hem Pathologist Commnt No 09/27/17 04:00 PT 14.9 Sec. (12.2-14.9) 09/21/17 07:00 INR 1.11 (0.87-1.13) 09/21/17 07:00 APTT 28.7 Sec. (24.2-36.6) 08/31/17 18:15 POC ABG pH 7.347 (7.35-7.45) L 09/13/17 11:36 ABG pH 7.323 pH Units (7.350-7.450) L 09/09/17 Unknown POC ABG pCO2 34.3 (35-45) L 09/13/17 11:36 ABG pCO2 41.1 mm Hg 09/09/17 Unknown POC ABG pO2 134 (80-105) H 09/13/17 11:36 ABG pO2 94.1 mm Hg (80.0-90.0) H 09/09/17 Unknown POC ABG HCO3 18.8 09/13/17 11:36 ABG HCO3 20.9 mmol/L (20.0-26.0) 09/09/17 Unknown POC ABG Total CO2 20 09/13/17 11:36 POC ABG O2 Sat 99 09/13/17 11:36 ABG O2 Saturation 97.2 % (95.0-99.0) 09/09/17 Unknown ABG O2 Content 10.9 (0.0-44) 09/09/17 Unknown POC ABG Base Excess -7 09/13/17 11:36 ABG Base Excess -4.8 mmol/L (-2.0-3.0) L 09/09/17 Unknown ABG Hemoglobin 8.0 gm/dl (12.0-16.0) L 09/09/17 Unknown ABG Carboxyhemoglobin 2.0 % (0.0-5.0) 09/09/17 Unknown ABG Methemoglobin 0.3 % (0.0-1.5) 09/09/17 Unknown VBG pH 7.462 (7.320-7.420) H 08/08/17 14:52 Oxyhemoglobin 94.9 % (95.0-99.0) L 09/09/17 Unknown FiO2 30 % 09/13/17 11:36 Sodium 143 mmol/L (137-145) 09/27/17 04:00 Potassium 4.3 mmol/L (3.6-5.0) 09/27/17 04:00 Chloride 101.9 mmol/L (98-107) 09/27/17 04:00 Carbon Dioxide 19 mmol/L (22-30) L 09/27/17 04:00 Anion Gap 26 mmol/L 09/27/17 04:00 BUN 102 mg/dL (7-17) H 09/27/17 04:00 Creatinine 2.8 mg/dL (0.7-1.2) H 09/27/17 04:00 Estimated GFR 21 ml/min 09/27/17 04:00 BUN/Creatinine Ratio 36 % 09/27/17 04:00 Glucose 141 mg/dL (65-100) H 09/27/17 04:00 POC Glucose 189 (70-105) H 09/27/17 05:11 Lactic Acid 1.60 mmol/L (0.7-2.0) 08/17/17 11:20 Calcium 8.1 mg/dL (8.4-10.2) L 09/27/17 04:00 Phosphorus 3.90 mg/dL (2.5-4.5) 09/27/17 04:00 Magnesium 2.40 mg/dL (1.7-2.3) H 09/27/17 04:00 Iron 22 ug/dL (37-170) L 09/12/17 05:25 TIBC 81 mcg/dL (250-450) L 09/12/17 05:25 Ferritin > 2000.0 ng/mL (13.0-400.0) H 09/12/17 05:25 Total Bilirubin 0.70 mg/dL (0.1-1.2) 09/22/17 03:37 Direct Bilirubin 0.2 mg/dL (0-0.2) 08/08/17 14:11 Indirect Bilirubin 0.3 mg/dL 08/08/17 14:11 AST 33 units/L (5-40) 09/22/17 03:37 ALT 16 units/L (7-56) 09/22/17 03:37 Alkaline Phosphatase 311 units/L (35-129) H 09/22/17 03:37 Ammonia 25.0 umol/L (25-60) 08/08/17 14:52 Total Creatine Kinase 20 units/L (30-135) L 09/16/17 05:30 Troponin T 0.132 ng/mL (0.00-0.029) H* 08/09/17 13:25 C-Reactive Protein 2.80 mg/dL (0.00-1.30) H 09/06/17 05:30 NT-Pro-B Natriuret Pep 6156 pg/mL (0-900) H 08/08/17 14:11 Total Protein 4.4 g/dL (6.3-8.2) L 09/22/17 03:37 Albumin 2.0 g/dL (3.9-5) L 09/22/17 03:37 Albumin/Globulin Ratio 0.8 % 09/22/17 03:37 Triglycerides 180 mg/dL (2-149) H 09/03/17 04:00 Cholesterol 91 mg/dL (50-199) 08/08/17 21:23 LDL Cholesterol Direct 53 mg/dL (50-130) 08/08/17 21:23 HDL Cholesterol 26 mg/dL (40-59) L 08/08/17 21:23 Cholesterol/HDL Ratio 3.50 % 08/08/17 21:23 Amylase 45 units/L (27-131) 08/16/17 09:50 Lipase 34 units/L (13-60) 08/16/17 09:50 TSH 6.580 mlU/mL (0.270-4.200) H 08/08/17 14:22 Free T4 1.46 ng/dL (0.76-1.46) 08/08/17 14:22 Total Cortisol 28.3 mcg/dL () 09/13/17 12:50 Urine Color Yellow (Yellow) 08/08/17 20:15 Urine Turbidity Turbid (Clear) 08/08/17 20:15 Urine pH 8.0 (5.0-7.0) H 08/08/17 20:15 Ur Specific Sacul 1.015 (1.003-1.030) 08/08/17 20:15 Urine Protein 100 mg/dl mg/dL (Negative) 08/08/17 20:15 Urine Glucose (UA) Neg mg/dL (Negative) 08/08/17 20:15 Urine Ketones Neg mg/dL (Negative) 08/08/17 20:15 Urine Blood Mod (Negative) 08/08/17 20:15 Urine Nitrite Neg (Negative) 08/08/17 20:15 Urine Bilirubin Neg (Negative) 08/08/17 20:15 Urine Urobilinogen < 2.0 mg/dL (<2.0) 08/08/17 20:15 Ur Leukocyte Esterase Lg (Negative) 08/08/17 20:15 Urine WBC (Auto) 24.0 /HPF (0.0-6.0) H 08/08/17 20:15 Urine RBC (Auto) 3.0 /HPF (0.0-6.0) 08/08/17 20:15 U Epithel Cells (Auto) 3.0 /HPF (0-13.0) 08/08/17 20:15 Urine Bacteria (Auto) 4+ /HPF (Negative) 08/08/17 20:15 Urine Mucus 3+ /HPF 08/08/17 20:15 Fluid Type Peritoneal 08/08/17 18:18 Fluid Color Straw 08/08/17 18:18 Fluid Appearance Clear 08/08/17 18:18 Fluid pH 7.74 08/08/17 18:18 Fluid WBC 4 /mm3 08/08/17 18:18 Fluid RBC 1 /mm3 08/08/17 18:18 Fluid Seg Neutrophils 12 % 08/08/17 18:18 Fluid Lymphocytes 0 % 08/08/17 18:18 Fluid Reactive Lymphs 0 % 08/08/17 18:18 Fluid Monocytes 1 % 08/08/17 18:18 Fluid Eosinophils 0 % 08/08/17 18:18 Fluid Basophils 0 % 08/08/17 18:18 Fluid Glucose 315 mg/dL (40-70) H 08/08/17 18:18 Random Vancomycin 19.5 ug/mL (0-40.0) 08/22/17 03:40 Hep Bs Antigen Non-reactive (Negative) 08/22/17 03:40 Hepatitis C Antibody Non-reactive (NonReactive) 08/22/17 03:40 Miscellaneous Test Flexitest 1 H 09/06/17 09:57 Blood Type O POSITIVE 09/27/17 08:58 Antibody Screen Negative 09/27/17 08:58 VAN Antibody Screen Negative 09/07/17 17:07 Crossmatch See Detail 09/27/17 08:58
[2017-09-27] MEDS: HEPARIN IV PRN (13:38)
--- NOTE | 2017-09-27 14:54 | Progress Note ---
Assessment and Plan Imp: 1. Acute bacterial peritonitis/abscess s/p PD cath removal and multiple exlaps 2. s/p SBO 3. Acute respiratory failure, hypoxia 4. Morbid obesity, excess cals. 5. ESRD 6. Sepsis -> now SIRS 7. s/p LGIB Rec: 1. Levophed not any worse; believe worsening clinical status was primarily due to sepsis/anastomotic leak, and less likely adrenal insufficiency; patient not healing her wounds including her bowel; recommend continue to remain off steroids unless absolutely necessary; has leukemoid reaction likely due to stress/sepsis 2. Monitor volume status with TPN; remove volume as able with HD 3. Cont. ventilator -> daily PSV 4. Would recommend transfusing PRBCs; defer to primary and renal 5. Levophed if necessary to keep MAP > 65 6. Not a candidate for chemical DVT PPx at this point, yet high risk for DVT; foot pumps in place now 7. ABX per ID 8. Prognosis remains poor; no family present today; will need LTAC when abdominal issues stable Complex decision-making Subjective Date of service: 09/27/17 Principal diagnosis: respiratory failure, sepsis, shock rectal bleeding Interval history: Awake, alert. No complaints although tachypeic on PRVC. On HD, back on Levophed at 10mcg. Active Medications Albuterol (Proventil) 2.5 mg IH Q4HRT PRN PRN Reason: Shortness Of Breath Last Admin: 08/24/17 21:49 Dose: 2.5 mg Dextrose (D50w (25gm) Vial) 50 gm IV PRN PRN PRN Reason: Hypoglycemia Last Admin: 09/15/17 23:57 Dose: 50 gm Heparin Sodium (Porcine) (Heparin 10,000 Units/10 Ml) 2,000 unit IV ISIAH PRN PRN Reason: hemodialysis Last Admin: 09/23/17 14:20 Dose: 2,000 unit Heparin Sodium (Porcine) (Heparin) 5,000 unit IV ISIAH PRN PRN Reason: hemodialysis Last Admin: 09/27/17 13:38 Dose: 5,000 unit Hydromorphone HCl (Dilaudid) 1 mg IV Q4H PRN PRN Reason: Pain , Severe (7-10) Last Admin: 09/26/17 18:09 Dose: 1 mg Hydrophilic Ointment (Vaseline Lip Therapy) 1 applic TP DIRECT PRN PRN Reason: DRY LIPS Last Admin: 09/14/17 11:55 Dose: 1 applic Norepinephrine 8 mg/ Sodium (Chloride) 250 mls @ 3.75 mls/hr IV TITR GLORIA; 2 MCG /MIN PRN Reason: Protocol Last Titration: 09/27/17 10:45 Dose: 10 mcg/min, 18.75 mls/hr Fluconazole (Diflucan) 200 mg in 100 mls @ 100 mls/hr IV Q24HR GLORIA PRN Reason: Protocol Last Admin: 09/27/17 09:49 Dose: 100 mls/hr Meropenem 1,000 mg/ Sodium (Chloride) 100 mls @ 100 mls/hr IV Q24HR GLORIA PRN Reason: Protocol Last Admin: 09/27/17 09:50 Dose: 100 mls/hr Amino Acids/Electrolytes/Dextrose (Tpn Adult) 1,800 mls @ 75 mls/hr IV DAILY@ 1999 GLORIA PRN Reason: Protocol Stop: 09/27/17 19:59 Last Admin: 09/26/17 20:30 Dose: 75 mls/hr Sodium Chloride (Nacl 0.9%) 100 mls @ 999 mls/hr IV ISIAH PRN PRN Reason: Hypotension Amino Acids/Electrolytes/Dextrose (Tpn Adult) 1,800 mls @ 75 mls/hr IV DAILY@ 1999 GLORIA PRN Reason: Protocol Stop: 09/28/17 19:59 Fat Emulsion Intravenous (Intralipid 20%) 250 mls @ 21 mls/hr IV DAILY@1999 [facility] Stop: 09/28/17 08:00 Insulin Aspart (Novolog) 0 units SUB-Q Q6HR GLORIA PRN Reason: Protocol Last Admin: 09/27/17 05:15 Dose: 3 units Insulin Detemir (Levemir) 45 units SUB-Q DAILY [facility] Last Admin: 09/27/17 09:50 Dose: 45 units Lorazepam (Ativan) 2 mg IV Q6H PRN PRN Reason: Agitation Last Admin: 09/17/17 10:31 Dose: 2 mg Pantoprazole Sodium (Protonix) 40 mg IV QDAY [facility] Last Admin: 09/27/17 09:50 Dose: 40 mg Objective Vital Signs - 12hr 09/27/17 09/27/17 09/27/17 03:00 03:12 03:16 Temperature 99.2 F Pulse Rate 100 H 96 H Respiratory 21 21 Rate Blood Pressure 104/54 105/48 O2 Sat by Pulse Oximetry O2 Sat by Pulse Oximetry [ Anterior Bilateral Throughout] 09/27/17 09/27/17 09/27/17 03:30 03:40 03:45 Temperature Pulse Rate 109 H 95 H 95 H Respiratory 29 H 14 20 Rate Blood Pressure 105/48 121/56 O2 Sat by Pulse 100 Oximetry O2 Sat by Pulse Oximetry [ Anterior Bilateral Throughout] 09/27/17 09/27/17 09/27/17 04:00 04:16 04:30 Temperature Pulse Rate 94 H 95 H 92 H Respiratory 23 28 H 19 Rate Blood Pressure 116/47 119/54 120/44 O2 Sat by Pulse Oximetry O2 Sat by Pulse Oximetry [ Anterior Bilateral Throughout] 09/27/17 09/27/17 09/27/17 04:31 04:45 05:00 Temperature Pulse Rate 98 H 89 96 H Respiratory 22 25 H Rate Blood Pressure 120/44 116/37 123/45 O2 Sat by Pulse 100 Oximetry O2 Sat by Pulse Oximetry [ Anterior Bilateral Throughout] 09/27/17 09/27/17 09/27/17 05:16 05:30 05:45 Temperature Pulse Rate 101 H 93 H 92 H Respiratory 25 H 22 22 Rate Blood Pressure 120/44 125/49 120/47 O2 Sat by Pulse 100 Oximetry O2 Sat by Pulse Oximetry [ Anterior Bilateral Throughout] 09/27/17 09/27/17 09/27/17 05:51 06:00 06:15 Temperature Pulse Rate 103 H 96 H Respiratory 21 26 H 23 Rate Blood Pressure 109/61 125/48 O2 Sat by Pulse 100 Oximetry O2 Sat by Pulse Oximetry [ Anterior Bilateral Throughout] 09/27/17 09/27/17 09/27/17 06:30 06:45 07:00 Temperature Pulse Rate 98 H 96 H 94 H Respiratory 18 24 28 H Rate Blood Pressure 121/40 114/49 107/55 O2 Sat by Pulse 91 Oximetry O2 Sat by Pulse Oximetry [ Anterior Bilateral Throughout] 09/27/17 09/27/17 09/27/17 07:15 07:30 07:45 Temperature Pulse Rate 98 H 96 H 99 H Respiratory 22 26 H 25 H Rate Blood Pressure 112/51 111/49 101/44 O2 Sat by Pulse Oximetry O2 Sat by Pulse Oximetry [ Anterior Bilateral Throughout] 09/27/17 09/27/17 09/27/17 08:00 08:15 08:30 Temperature 97.1 F L Pulse Rate 95 H 100 H 96 H Respiratory 22 24 21 Rate Blood Pressure 99/47 107/70 119/32 O2 Sat by Pulse Oximetry O2 Sat by Pulse Oximetry [ Anterior Bilateral Throughout] 09/27/17 09/27/17 09/27/17 08:46 09:00 09:16 Temperature Pulse Rate 92 H 95 H 97 H Respiratory 21 19 26 H Rate Blood Pressure 128/37 113/40 118/46 O2 Sat by Pulse Oximetry O2 Sat by Pulse Oximetry [ Anterior Bilateral Throughout] 09/27/17 09/27/17 09/27/17 09:30 09:40 09:46 Temperature 97.0 F L Pulse Rate 98 H 95 H 97 H Respiratory 13 21 19 Rate Blood Pressure 104/32 100/38 95/40 O2 Sat by Pulse Oximetry O2 Sat by Pulse Oximetry [ Anterior Bilateral Throughout] 09/27/17 09/27/17 09/27/17 09:50 10:00 10:15 Temperature Pulse Rate 95 H 100 H 91 H Respiratory 22 Rate Blood Pressure 100/38 100/38 100/35 O2 Sat by Pulse Oximetry O2 Sat by Pulse Oximetry [ Anterior Bilateral Throughout] 09/27/17 09/27/17 09/27/17 10:16 10:30 10:31 Temperature Pulse Rate 89 98 H 104 H Respiratory 22 18 Rate Blood Pressure 101/39 94/37 94/37 O2 Sat by Pulse Oximetry O2 Sat by Pulse Oximetry [ Anterior Bilateral Throughout] 09/27/17 09/27/17 09/27/17 10:44 10:45 10:53 Temperature 97.0 F L Pulse Rate 104 H 101 H 102 H Respiratory 29 H 31 H Rate Blood Pressure 89/39 89/39 101/76 O2 Sat by Pulse 100 Oximetry O2 Sat by Pulse Oximetry [ Anterior Bilateral Throughout] 09/27/17 09/27/17 09/27/17 10:59 11:00 11:16 Temperature 97.3 F L Pulse Rate 107 H 109 H 100 H Respiratory 23 22 24 Rate Blood Pressure 101/76 101/76 94/51 O2 Sat by Pulse Oximetry O2 Sat by Pulse Oximetry [ Anterior Bilateral Throughout] 09/27/17 09/27/17 09/27/17 11:18 11:20 11:30 Temperature 97.3 F L Pulse Rate 103 H 103 H 102 H Respiratory 25 H 26 H Rate Blood Pressure 94/51 94/51 87/59 O2 Sat by Pulse 99 Oximetry O2 Sat by Pulse Oximetry [ Anterior Bilateral Throughout] 09/27/17 09/27/17 09/27/17 11:45 11:56 12:00 Temperature 98.0 F 98.6 F Pulse Rate 101 H 105 H 104 H Respiratory 24 25 H 24 Rate Blood Pressure 101/65 101/65 97/55 O2 Sat by Pulse 100 Oximetry O2 Sat by Pulse Oximetry [ Anterior Bilateral Throughout] 09/27/17 09/27/17 09/27/17 12:02 12:15 12:30 Temperature Pulse Rate 101 H 104 H 104 H Respiratory 25 H 25 H Rate Blood Pressure 97/55 98/56 98/43 O2 Sat by Pulse 83 L Oximetry O2 Sat by Pulse Oximetry [ Anterior Bilateral Throughout] 09/27/17 09/27/17 09/27/17 12:36 12:45 12:54 Temperature Pulse Rate 105 H 102 H 103 H Respiratory 24 Rate Blood Pressure 98/43 88/62 88/62 O2 Sat by Pulse Oximetry O2 Sat by Pulse Oximetry [ Anterior Bilateral Throughout] 09/27/17 09/27/17 09/27/17 13:00 13:09 13:20 Temperature Pulse Rate 102 H 103 H 101 H Respiratory 26 H Rate Blood Pressure 97/55 97/55 108/54 O2 Sat by Pulse Oximetry O2 Sat by Pulse Oximetry [ Anterior Bilateral Throughout] 09/27/17 13:34 Temperature 98.6 F Pulse Rate 99 H Respiratory 24 Rate Blood Pressure 108/54 O2 Sat by Pulse Oximetry O2 Sat by Pulse 100 Oximetry [ Anterior Bilateral Throughout] Constitutional: other (critically ill on vent, obese) Eyes: non-icteric ENT: oropharynx dry Neck: supple, other (trach in position, no bleeding) Effort: mildly labored Ascultation: Bilateral: wheezes (faint expiratory wheezes), other (coarse BS bilaterally) Cardiovascular: other (tachy, RR; no mrg) Gastrointestinal: absent bowel sounds, non-tender, other (abdominal incision with dressing , obese. Drain in place, no bleeding; ostomy with brown stool) Integumentary: normal Extremities: no cyanosis, pink and warm, edema Neurologic: non-focal exam, pupils equal and round Psychiatric: mood appropriate, affect normal CBC and BMP: 09/27/17 04:00 09/27/17 04:00 ABG, PT/INR, D-dimer: ABG POC ABG pH 7.347 (7.35-7.45) L 09/13/17 11:36 ABG pH 7.323 pH Units (7.350-7.450) L 09/09/17 Unknown POC ABG pCO2 34.3 (35-45) L 09/13/17 11:36 ABG pCO2 41.1 mm Hg 09/09/17 Unknown POC ABG pO2 134 (80-105) H 09/13/17 11:36 ABG pO2 94.1 mm Hg (80.0-90.0) H 09/09/17 Unknown POC ABG HCO3 18.8 09/13/17 11:36 POC ABG Total CO2 20 09/13/17 11:36 POC ABG O2 Sat 99 09/13/17 11:36 ABG O2 Saturation 97.2 % (95.0-99.0) 09/09/17 Unknown PT/INR, D-dimer PT 14.9 Sec. (12.2-14.9) 09/21/17 07:00 INR 1.11 (0.87-1.13) 09/21/17 07:00 Abnormal lab findings: Abnormal Labs 08/08/17 08/08/17 08/09/17 21:23 21:31 11:19 WBC 15.7 H RBC 2.93 L Hgb 8.7 L Hct 26.8 L MCV MCH RDW 19.2 H Plt Count Lymph % (Auto) [place] % (Auto) [place] # Seg Neutrophils % Seg Neuts % (Manual) Lymphocytes % (Manual) Monocytes % (Manual) Nucleated RBC % Seg Neutrophils # Seg Neutrophils # Man Lymphocytes # (Manual) Monocytes # (Manual) Eosinophils # (Manual) Basophils # (Manual) PT INR POC ABG pH 7.490 H ABG pH POC ABG pCO2 POC ABG pO2 122 H ABG pO2 ABG O2 Saturation ABG Base Excess ABG Hemoglobin Oxyhemoglobin Sodium Potassium Chloride Carbon Dioxide BUN Creatinine Glucose POC Glucose Calcium Phosphorus Magnesium Iron TIBC Ferritin Total Bilirubin AST ALT Alkaline Phosphatase Total Creatine Kinase Troponin T 0.133 H* C-Reactive Protein Total Protein Albumin Triglycerides HDL Cholesterol 26 L Miscellaneous Test Crossmatch 08/09/17 08/10/17 08/10/17 13:25 04:45 04:45 WBC 15.5 H RBC 2.97 L Hgb 8.9 L Hct 27.0 L MCV MCH RDW 19.2 H Plt Count Lymph % (Auto) [place] % (Auto) [place] # Seg Neutrophils % Seg Neuts % (Manual) 73.0 H Lymphocytes % (Manual) 7.0 L Monocytes % (Manual) 14.0 H Nucleated RBC % Seg Neutrophils # Seg Neutrophils # Man 11.3 H Lymphocytes # (Manual) 1.1 L Monocytes # (Manual) 2.2 H Eosinophils # (Manual) Basophils # (Manual) 0.2 H PT INR POC ABG pH ABG pH POC ABG pCO2 POC ABG pO2 ABG pO2 ABG O2 Saturation ABG Base Excess ABG Hemoglobin Oxyhemoglobin Sodium Potassium 3.3 L Chloride 97.3 L Carbon Dioxide 21 L BUN 23 H Creatinine 6.5 H Glucose POC Glucose Calcium 7.3 L Phosphorus Magnesium Iron TIBC Ferritin Total Bilirubin AST ALT Alkaline Phosphatase 138 H Total Creatine Kinase Troponin T 0.132 H* C-Reactive Protein Total Protein 4.8 L Albumin 1.4 L Triglycerides HDL Cholesterol Miscellaneous Test Crossmatch 08/11/17 08/11/17 08/12/17 04:00 04:00 05:50 WBC 19.3 H RBC 3.10 L Hgb 9.5 L Hct 28.2 L MCV MCH RDW 19.2 H Plt Count 463 H Lymph % (Auto) 7.5 L [place] % (Auto) 14.6 H [place] # 2.8 H Seg Neutrophils % 77.0 H Seg Neuts % (Manual) Lymphocytes % (Manual) Monocytes % (Manual) Nucleated RBC % Seg Neutrophils # 14.8 H Seg Neutrophils # Man Lymphocytes # (Manual) Monocytes # (Manual) Eosinophils # (Manual) Basophils # (Manual) PT INR POC ABG pH ABG pH POC ABG pCO2 POC ABG pO2 ABG pO2 ABG O2 Saturation ABG Base Excess ABG Hemoglobin Oxyhemoglobin Sodium 136 L 136 L Potassium 3.3 L Chloride 96.3 L 96.6 L Carbon Dioxide BUN 26 H 26 H Creatinine 6.4 H 6.2 H Glucose 135 H 133 H POC Glucose Calcium 8.2 L Phosphorus Magnesium 1.30 L Iron TIBC Ferritin Total Bilirubin AST ALT Alkaline Phosphatase 139 H Total Creatine Kinase Troponin T C-Reactive Protein Total Protein 5.5 L Albumin 1.7 L Triglycerides HDL Cholesterol Miscellaneous Test Crossmatch 08/12/17 08/12/17 08/12/17 05:50 05:50 05:50 WBC 20.1 H RBC 3.06 L Hgb 9.3 L Hct 27.9 L MCV MCH RDW 18.4 H Plt Count 471 H Lymph % (Auto) [place] % (Auto) [place] # Seg Neutrophils % Seg Neuts % (Manual) 85.0 H Lymphocytes % (Manual) 8.0 L Monocytes % (Manual) Nucleated RBC % Seg Neutrophils # Seg Neutrophils # Man 17.1 H Lymphocytes # (Manual) Monocytes # (Manual) 1.0 H Eosinophils # (Manual) Basophils # (Manual) PT 15.2 H INR 1.14 H POC ABG pH ABG pH POC ABG pCO2 POC ABG pO2 ABG pO2 ABG O2 Saturation ABG Base Excess ABG Hemoglobin Oxyhemoglobin Sodium Potassium Chloride Carbon Dioxide BUN Creatinine Glucose POC Glucose Calcium Phosphorus Magnesium Iron TIBC Ferritin Total Bilirubin AST ALT Alkaline Phosphatase Total Creatine Kinase Troponin T C-Reactive Protein 28.90 H Total Protein Albumin Triglycerides HDL Cholesterol Miscellaneous Test Crossmatch 08/12/17 08/13/17 08/13/17 16:23 06:14 06:14 WBC 21.8 H RBC 3.11 L Hgb 9.4 L Hct 28.2 L MCV MCH RDW 18.2 H Plt Count 492 H Lymph % (Auto) [place] % (Auto) [place] # Seg Neutrophils % Seg Neuts % (Manual) 73.0 H Lymphocytes % (Manual) 2.0 L Monocytes % (Manual) 15 H Nucleated RBC % Seg Neutrophils # Seg Neutrophils # Man 15.9 H Lymphocytes # (Manual) 0.4 L Monocytes # (Manual) 2.4 H Eosinophils # (Manual) Basophils # (Manual) PT INR POC ABG pH ABG pH POC ABG pCO2 POC ABG pO2 ABG pO2 ABG O2 Saturation ABG Base Excess ABG Hemoglobin Oxyhemoglobin Sodium Potassium Chloride 96.2 L Carbon Dioxide BUN 28 H Creatinine 5.6 H Glucose 114 H POC Glucose Calcium Phosphorus Magnesium Iron TIBC Ferritin Total Bilirubin AST ALT Alkaline Phosphatase Total Creatine Kinase Troponin T C-Reactive Protein 26.10 H Total Protein Albumin Triglycerides HDL Cholesterol Miscellaneous Test Crossmatch 08/13/17 08/14/17 08/14/17 16:39 04:00 04:00 WBC 22.1 H RBC 3.25 L Hgb 9.9 L Hct 29.5 L MCV MCH RDW 17.9 H Plt Count 525 H Lymph % (Auto) [place] % (Auto) [place] # Seg Neutrophils % Seg Neuts % (Manual) 74.0 H Lymphocytes % (Manual) 8.0 L Monocytes % (Manual) 12.0 H Nucleated RBC % Seg Neutrophils # Seg Neutrophils # Man 16.4 H Lymphocytes # (Manual) Monocytes # (Manual) 2.7 H Eosinophils # (Manual) Basophils # (Manual) PT INR POC ABG pH ABG pH POC ABG pCO2 POC ABG pO2 ABG pO2 ABG O2 Saturation ABG Base Excess ABG Hemoglobin Oxyhemoglobin Sodium 134 L Potassium 3.3 L Chloride 93.3 L Carbon Dioxide BUN 27 H Creatinine 6.0 H Glucose 152 H POC Glucose 151 H Calcium Phosphorus Magnesium Iron TIBC Ferritin Total Bilirubin AST ALT Alkaline Phosphatase Total Creatine Kinase Troponin T C-Reactive Protein Total Protein Albumin Triglycerides HDL Cholesterol Miscellaneous Test Crossmatch 08/15/17 08/16/17 08/16/17 09:10 09:50 09:50 WBC 31.1 H RBC 3.21 L Hgb 9.6 L Hct 29.3 L MCV MCH RDW 18.1 H Plt Count 642 H Lymph % (Auto) [place] % (Auto) [place] # Seg Neutrophils % Seg Neuts % (Manual) 74.0 H Lymphocytes % (Manual) 4.0 L Monocytes % (Manual) 9.0 H Nucleated RBC % Seg Neutrophils # Seg Neutrophils # Man 23.0 H Lymphocytes # (Manual) Monocytes # (Manual) 2.8 H Eosinophils # (Manual) Basophils # (Manual) PT INR POC ABG pH ABG pH POC ABG pCO2 POC ABG pO2 ABG pO2 ABG O2 Saturation ABG Base Excess ABG Hemoglobin Oxyhemoglobin Sodium 136 L 136 L Potassium 3.5 L Chloride 97.6 L 94.9 L Carbon Dioxide BUN 27 H 28 H Creatinine 5.6 H 5.5 H Glucose 117 H 103 H POC Glucose Calcium Phosphorus Magnesium Iron TIBC Ferritin Total Bilirubin AST ALT Alkaline Phosphatase 137 H Total Creatine Kinase Troponin T C-Reactive Protein Total Protein 5.4 L Albumin 1.5 L Triglycerides HDL Cholesterol Miscellaneous Test Crossmatch 08/16/17 08/17/17 08/17/17 09:50 05:00 06:26 WBC RBC Hgb Hct MCV MCH RDW Plt Count Lymph % (Auto) [place] % (Auto) [place] # Seg Neutrophils % Seg Neuts % (Manual) Lymphocytes % (Manual) Monocytes % (Manual) Nucleated RBC % Seg Neutrophils # Seg Neutrophils # Man Lymphocytes # (Manual) Monocytes # (Manual) Eosinophils # (Manual) Basophils # (Manual) PT INR POC ABG pH ABG pH POC ABG pCO2 POC ABG pO2 ABG pO2 ABG O2 Saturation ABG Base Excess ABG Hemoglobin Oxyhemoglobin Sodium 134 L Potassium 3.0 L Chloride 97.8 L Carbon Dioxide BUN 30 H Creatinine 5.3 H Glucose 147 H POC Glucose 165 H Calcium 7.5 L Phosphorus Magnesium Iron TIBC Ferritin Total Bilirubin AST ALT Alkaline Phosphatase Total Creatine Kinase Troponin T C-Reactive Protein 32.30 H Total Protein Albumin Triglycerides HDL Cholesterol Miscellaneous Test Crossmatch 08/17/17 08/17/17 08/17/17 10:56 11:20 11:20 WBC 39.1 H RBC 3.10 L Hgb 9.2 L Hct 28.6 L MCV MCH RDW 18.3 H Plt Count 580 H Lymph % (Auto) [place] % (Auto) [place] # Seg Neutrophils % Seg Neuts % (Manual) 89.5 H Lymphocytes % (Manual) 3.5 L Monocytes % (Manual) Nucleated RBC % Seg Neutrophils # Seg Neutrophils # Man 35.0 H Lymphocytes # (Manual) Monocytes # (Manual) 2.5 H Eosinophils # (Manual) Basophils # (Manual) 0.2 H PT INR POC ABG pH 7.464 H ABG pH POC ABG pCO2 34.1 L POC ABG pO2 75 L ABG pO2 ABG O2 Saturation ABG Base Excess ABG Hemoglobin Oxyhemoglobin Sodium Potassium Chloride Carbon Dioxide BUN Creatinine Glucose POC Glucose Calcium Phosphorus Magnesium Iron TIBC Ferritin Total Bilirubin AST ALT Alkaline Phosphatase Total Creatine Kinase Troponin T C-Reactive Protein Total Protein Albumin Triglycerides HDL Cholesterol Miscellaneous Test Flexitest 1 H Crossmatch 08/17/17 08/17/17 08/17/17 11:20 16:57 20:20 WBC 34.4 H RBC 2.81 L Hgb 8.4 L Hct 26.0 L MCV MCH RDW 17.8 H Plt Count 455 H Lymph % (Auto) [place] % (Auto) [place] # Seg Neutrophils % Seg Neuts % (Manual) Lymphocytes % (Manual) 3.5 L Monocytes % (Manual) Nucleated RBC % 5.0 H Seg Neutrophils # Seg Neutrophils # Man 16.5 H Lymphocytes # (Manual) Monocytes # (Manual) 1.0 H Eosinophils # (Manual) Basophils # (Manual) PT 16.0 H INR 1.29 H POC ABG pH ABG pH POC ABG pCO2 POC ABG pO2 ABG pO2 ABG O2 Saturation ABG Base Excess ABG Hemoglobin Oxyhemoglobin Sodium 135 L Potassium 2.9 L* Chloride Carbon Dioxide 20 L BUN 32 H Creatinine 5.4 H Glucose 129 H POC Glucose Calcium 7.5 L Phosphorus Magnesium 1.50 L Iron TIBC Ferritin Total Bilirubin AST 85 H ALT Alkaline Phosphatase Total Creatine Kinase Troponin T C-Reactive Protein Total Protein 4.0 L D Albumin 1.6 L Triglycerides HDL Cholesterol Miscellaneous Test Crossmatch 08/17/17 08/17/17 08/18/17 20:54 23:47 04:26 WBC RBC Hgb Hct MCV MCH RDW Plt Count Lymph % (Auto) [place] % (Auto) [place] # Seg Neutrophils % Seg Neuts % (Manual) Lymphocytes % (Manual) Monocytes % (Manual) Nucleated RBC % Seg Neutrophils # Seg Neutrophils # Man Lymphocytes # (Manual) Monocytes # (Manual) Eosinophils # (Manual) Basophils # (Manual) PT INR POC ABG pH 7.557 H ABG pH POC ABG pCO2 23.1 L 29.0 L POC ABG pO2 187 H 148 H ABG pO2 ABG O2 Saturation ABG Base Excess ABG Hemoglobin Oxyhemoglobin Sodium Potassium Chloride Carbon Dioxide BUN Creatinine Glucose POC Glucose 188 H Calcium Phosphorus Magnesium Iron TIBC Ferritin Total Bilirubin AST ALT Alkaline Phosphatase Total Creatine Kinase Troponin T C-Reactive Protein Total Protein Albumin Triglycerides HDL Cholesterol Miscellaneous Test Crossmatch 08/18/17 08/18/17 08/18/17 05:51 11:44 17:07 WBC RBC Hgb Hct MCV MCH RDW Plt Count Lymph % (Auto) [place] % (Auto) [place] # Seg Neutrophils % Seg Neuts % (Manual) Lymphocytes % (Manual) Monocytes % (Manual) Nucleated RBC % Seg Neutrophils # Seg Neutrophils # Man Lymphocytes # (Manual) Monocytes # (Manual) Eosinophils # (Manual) Basophils # (Manual) PT INR POC ABG pH ABG pH POC ABG pCO2 POC ABG pO2 ABG pO2 ABG O2 Saturation ABG Base Excess ABG Hemoglobin Oxyhemoglobin Sodium Potassium Chloride Carbon Dioxide BUN Creatinine Glucose POC Glucose 202 H 195 H 182 H Calcium Phosphorus Magnesium Iron TIBC Ferritin Total Bilirubin AST ALT Alkaline Phosphatase Total Creatine Kinase Troponin T C-Reactive Protein Total Protein Albumin Triglycerides HDL Cholesterol Miscellaneous Test Crossmatch 08/18/17 08/18/17 08/18/17 23:45 Unknown Unknown WBC 39.0 H RBC 2.84 L Hgb 8.4 L Hct 26.5 L MCV MCH RDW 18.0 H Plt Count 476 H Lymph % (Auto) [place] % (Auto) [place] # Seg Neutrophils % Seg Neuts % (Manual) Lymphocytes % (Manual) 7.0 L Monocytes % (Manual) 10.0 H Nucleated RBC % 3.0 H Seg Neutrophils # Seg Neutrophils # Man 15.6 H Lymphocytes # (Manual) Monocytes # (Manual) 3.9 H Eosinophils # (Manual) Basophils # (Manual) PT INR POC ABG pH ABG pH POC ABG pCO2 POC ABG pO2 ABG pO2 ABG O2 Saturation ABG Base Excess ABG Hemoglobin Oxyhemoglobin Sodium Potassium Chloride Carbon Dioxide 19 L BUN 34 H Creatinine 5.6 H Glucose 201 H POC Glucose 163 H Calcium 7.8 L Phosphorus 1.90 L D Magnesium 1.60 L Iron TIBC Ferritin Total Bilirubin AST ALT Alkaline Phosphatase Total Creatine Kinase Troponin T C-Reactive Protein Total Protein Albumin Triglycerides HDL Cholesterol Miscellaneous Test Crossmatch 08/19/17 08/19/17 08/19/17 04:18 05:00 05:00 WBC 40.0 H RBC 2.46 L Hgb 7.3 L Hct 22.6 L MCV MCH RDW 18.1 H Plt Count Lymph % (Auto) [place] % (Auto) [place] # Seg Neutrophils % Seg Neuts % (Manual) Lymphocytes % (Manual) 8.0 L Monocytes % (Manual) Nucleated RBC % 2.0 H Seg Neutrophils # Seg Neutrophils # Man 16.4 H Lymphocytes # (Manual) Monocytes # (Manual) 1.2 H Eosinophils # (Manual) 1.2 H Basophils # (Manual) PT INR POC ABG pH 7.463 H ABG pH POC ABG pCO2 29.7 L POC ABG pO2 134 H ABG pO2 ABG O2 Saturation ABG Base Excess ABG Hemoglobin Oxyhemoglobin Sodium Potassium 5.1 H D Chloride Carbon Dioxide 20 L BUN 40 H Creatinine 5.3 H Glucose 128 H POC Glucose Calcium 7.8 L Phosphorus 1.90 L Magnesium Iron TIBC Ferritin Total Bilirubin AST ALT Alkaline Phosphatase Total Creatine Kinase Troponin T C-Reactive Protein Total Protein Albumin Triglycerides HDL Cholesterol Miscellaneous Test Crossmatch 08/19/17 08/19/17 08/19/17 05:19 07:37 09:52 WBC 45.0 H* RBC 2.50 L Hgb 7.5 L Hct 24.5 L MCV 98 H MCH RDW 18.4 H Plt Count Lymph % (Auto) [place] % (Auto) [place] # Seg Neutrophils % Seg Neuts % (Manual) 81.5 H Lymphocytes % (Manual) 4.0 L Monocytes % (Manual) Nucleated RBC % 1.0 H Seg Neutrophils # Seg Neutrophils # Man 36.7 H Lymphocytes # (Manual) Monocytes # (Manual) Eosinophils # (Manual) Basophils # (Manual) PT INR POC ABG pH ABG pH POC ABG pCO2 POC ABG pO2 ABG pO2 ABG O2 Saturation ABG Base Excess ABG Hemoglobin Oxyhemoglobin Sodium Potassium Chloride Carbon Dioxide BUN Creatinine Glucose POC Glucose 142 H Calcium Phosphorus Magnesium Iron TIBC Ferritin Total Bilirubin AST ALT Alkaline Phosphatase Total Creatine Kinase Troponin T C-Reactive Protein 34.20 H Total Protein Albumin Triglycerides HDL Cholesterol Miscellaneous Test Crossmatch 08/19/17 08/19/17 08/20/17 11:16 18:12 00:35 WBC RBC Hgb Hct MCV MCH RDW Plt Count Lymph % (Auto) [place] % (Auto) [place] # Seg Neutrophils % Seg Neuts % (Manual) Lymphocytes % (Manual) Monocytes % (Manual) Nucleated RBC % Seg Neutrophils # Seg Neutrophils # Man Lymphocytes # (Manual) Monocytes # (Manual) Eosinophils # (Manual) Basophils # (Manual) PT INR POC ABG pH ABG pH POC ABG pCO2 POC ABG pO2 ABG pO2 ABG O2 Saturation ABG Base Excess ABG Hemoglobin Oxyhemoglobin Sodium Potassium Chloride Carbon Dioxide BUN Creatinine Glucose POC Glucose 143 H 137 H 164 H Calcium Phosphorus Magnesium Iron TIBC Ferritin Total Bilirubin AST ALT Alkaline Phosphatase Total Creatine Kinase Troponin T C-Reactive Protein Total Protein Albumin Triglycerides HDL Cholesterol Miscellaneous Test Crossmatch 08/20/17 08/20/17 08/20/17 03:20 03:20 04:00 WBC 48.0 H* RBC 2.55 L Hgb 7.6 L Hct 23.4 L MCV MCH RDW 18.4 H Plt Count Lymph % (Auto) [place] % (Auto) [place] # Seg Neutrophils % Seg Neuts % (Manual) 90.0 H Lymphocytes % (Manual) 3.0 L Monocytes % (Manual) Nucleated RBC % Seg Neutrophils # Seg Neutrophils # Man 43.2 H Lymphocytes # (Manual) Monocytes # (Manual) 1.4 H Eosinophils # (Manual) 0.5 H Basophils # (Manual) PT INR POC ABG pH 7.499 H ABG pH POC ABG pCO2 29.1 L POC ABG pO2 ABG pO2 ABG O2 Saturation ABG Base Excess ABG Hemoglobin Oxyhemoglobin Sodium 135 L Potassium Chloride Carbon Dioxide BUN 28 H Creatinine 4.0 H Glucose 140 H POC Glucose Calcium 8.0 L Phosphorus 1.70 L Magnesium 1.60 L Iron TIBC Ferritin Total Bilirubin AST ALT Alkaline Phosphatase Total Creatine Kinase Troponin T C-Reactive Protein Total Protein Albumin Triglycerides HDL Cholesterol Miscellaneous Test Crossmatch 08/20/17 08/20/17 08/20/17 05:02 12:05 13:12 WBC RBC Hgb Hct MCV MCH RDW Plt Count Lymph % (Auto) [place] % (Auto) [place] # Seg Neutrophils % Seg Neuts % (Manual) Lymphocytes % (Manual) Monocytes % (Manual) Nucleated RBC % Seg Neutrophils # Seg Neutrophils # Man Lymphocytes # (Manual) Monocytes # (Manual) Eosinophils # (Manual) Basophils # (Manual) PT INR POC ABG pH 7.537 H ABG pH POC ABG pCO2 27.9 L POC ABG pO2 79 L ABG pO2 ABG O2 Saturation ABG Base Excess ABG Hemoglobin Oxyhemoglobin Sodium Potassium Chloride Carbon Dioxide BUN Creatinine Glucose POC Glucose 158 H 203 H Calcium Phosphorus Magnesium Iron TIBC Ferritin Total Bilirubin AST ALT Alkaline Phosphatase Total Creatine Kinase Troponin T C-Reactive Protein Total Protein Albumin Triglycerides HDL Cholesterol Miscellaneous Test Crossmatch 08/20/17 08/21/17 08/21/17 17:13 00:47 03:14 WBC RBC Hgb Hct MCV MCH RDW Plt Count Lymph % (Auto) [place] % (Auto) [place] # Seg Neutrophils % Seg Neuts % (Manual) Lymphocytes % (Manual) Monocytes % (Manual) Nucleated RBC % Seg Neutrophils # Seg Neutrophils # Man Lymphocytes # (Manual) Monocytes # (Manual) Eosinophils # (Manual) Basophils # (Manual) PT INR POC ABG pH 7.481 H ABG pH POC ABG pCO2 29.6 L POC ABG pO2 ABG pO2 ABG O2 Saturation ABG Base Excess ABG Hemoglobin Oxyhemoglobin Sodium Potassium Chloride Carbon Dioxide BUN Creatinine Glucose POC Glucose 188 H 109 H Calcium Phosphorus Magnesium Iron TIBC Ferritin Total Bilirubin AST ALT Alkaline Phosphatase Total Creatine Kinase Troponin T C-Reactive Protein Total Protein Albumin Triglycerides HDL Cholesterol Miscellaneous Test Crossmatch 08/21/17 08/21/17 08/21/17 05:05 06:50 06:50 WBC 44.7 H* RBC 2.41 L Hgb 7.1 L Hct 22.1 L MCV MCH RDW 18.3 H Plt Count Lymph % (Auto) [place] % (Auto) [place] # Seg Neutrophils % Seg Neuts % (Manual) 89.0 H Lymphocytes % (Manual) 0 L Monocytes % (Manual) Nucleated RBC % 1.0 H Seg Neutrophils # Seg Neutrophils # Man 39.8 H Lymphocytes # (Manual) 0.0 L Monocytes # (Manual) 1.3 H Eosinophils # (Manual) Basophils # (Manual) PT INR POC ABG pH ABG pH POC ABG pCO2 POC ABG pO2 ABG pO2 ABG O2 Saturation ABG Base Excess ABG Hemoglobin Oxyhemoglobin Sodium 135 L Potassium Chloride Carbon Dioxide BUN 39 H Creatinine 4.4 H Glucose 147 H POC Glucose 166 H Calcium 8.1 L Phosphorus Magnesium Iron TIBC Ferritin Total Bilirubin AST ALT < 5 L Alkaline Phosphatase 164 H Total Creatine Kinase Troponin T C-Reactive Protein Total Protein 4.7 L Albumin 1.4 L Triglycerides HDL Cholesterol Miscellaneous Test Crossmatch 08/21/17 08/21/17 08/21/17 08:00 12:21 17:02 WBC RBC Hgb Hct MCV MCH RDW Plt Count Lymph % (Auto) [place] % (Auto) [place] # Seg Neutrophils % Seg Neuts % (Manual) Lymphocytes % (Manual) Monocytes % (Manual) Nucleated RBC % Seg Neutrophils # Seg Neutrophils # Man Lymphocytes # (Manual) Monocytes # (Manual) Eosinophils # (Manual) Basophils # (Manual) PT INR POC ABG pH ABG pH POC ABG pCO2 POC ABG pO2 ABG pO2 ABG O2 Saturation ABG Base Excess ABG Hemoglobin Oxyhemoglobin Sodium Potassium Chloride Carbon Dioxide BUN Creatinine Glucose POC Glucose 147 H 135 H Calcium Phosphorus Magnesium Iron TIBC Ferritin Total Bilirubin AST ALT Alkaline Phosphatase Total Creatine Kinase Troponin T C-Reactive Protein Total Protein Albumin Triglycerides HDL Cholesterol Miscellaneous Test Crossmatch See Detail 08/21/17 08/22/17 08/22/17 23:38 03:40 03:40 WBC 42.5 H* RBC 2.88 L Hgb 8.5 L Hct 26.3 L MCV MCH RDW 17.9 H Plt Count Lymph % (Auto) [place] % (Auto) [place] # Seg Neutrophils % Seg Neuts % (Manual) Lymphocytes % (Manual) 5.0 L Monocytes % (Manual) Nucleated RBC % Seg Neutrophils # Seg Neutrophils # Man 19.6 H Lymphocytes # (Manual) Monocytes # (Manual) 2.6 H Eosinophils # (Manual) Basophils # (Manual) PT INR POC ABG pH ABG pH POC ABG pCO2 POC ABG pO2 ABG pO2 ABG O2 Saturation ABG Base Excess ABG Hemoglobin Oxyhemoglobin Sodium Potassium 3.3 L D Chloride Carbon Dioxide BUN 27 H Creatinine 2.9 H Glucose 144 H POC Glucose 251 H Calcium 8.0 L Phosphorus 2.40 L Magnesium Iron TIBC Ferritin Total Bilirubin AST ALT Alkaline Phosphatase Total Creatine Kinase Troponin T C-Reactive Protein Total Protein Albumin Triglycerides HDL Cholesterol Miscellaneous Test Crossmatch 08/22/17 08/22/17 08/22/17 06:37 08:50 11:25 WBC RBC Hgb Hct MCV MCH RDW Plt Count Lymph % (Auto) [place] % (Auto) [place] # Seg Neutrophils % Seg Neuts % (Manual) Lymphocytes % (Manual) Monocytes % (Manual) Nucleated RBC % Seg Neutrophils # Seg Neutrophils # Man Lymphocytes # (Manual) Monocytes # (Manual) Eosinophils # (Manual) Basophils # (Manual) PT INR POC ABG pH ABG pH POC ABG pCO2 POC ABG pO2 ABG pO2 ABG O2 Saturation ABG Base Excess ABG Hemoglobin Oxyhemoglobin Sodium Potassium Chloride Carbon Dioxide BUN Creatinine Glucose POC Glucose 152 H 175 H Calcium Phosphorus Magnesium Iron TIBC Ferritin Total Bilirubin AST ALT Alkaline Phosphatase Total Creatine Kinase Troponin T C-Reactive Protein Total Protein Albumin Triglycerides HDL Cholesterol Miscellaneous Test Flexitest 1 H Crossmatch 08/22/17 08/22/17 08/22/17 16:25 17:56 23:03 WBC RBC Hgb Hct MCV MCH RDW Plt Count Lymph % (Auto) [place] % (Auto) [place] # Seg Neutrophils % Seg Neuts % (Manual) Lymphocytes % (Manual) Monocytes % (Manual) Nucleated RBC % Seg Neutrophils # Seg Neutrophils # Man Lymphocytes # (Manual) Monocytes # (Manual) Eosinophils # (Manual) Basophils # (Manual) PT INR POC ABG pH ABG pH POC ABG pCO2 POC ABG pO2 ABG pO2 ABG O2 Saturation ABG Base Excess ABG Hemoglobin Oxyhemoglobin Sodium Potassium Chloride Carbon Dioxide BUN Creatinine Glucose POC Glucose 232 H 192 H Calcium Phosphorus Magnesium Iron TIBC Ferritin Total Bilirubin AST ALT Alkaline Phosphatase Total Creatine Kinase Troponin T C-Reactive Protein 30.70 H Total Protein Albumin Triglycerides HDL Cholesterol Miscellaneous Test Crossmatch 08/23/17 08/23/17 08/23/17 05:36 08:50 12:14 WBC RBC Hgb Hct MCV MCH RDW Plt Count Lymph % (Auto) [place] % (Auto) [place] # Seg Neutrophils % Seg Neuts % (Manual) Lymphocytes % (Manual) Monocytes % (Manual) Nucleated RBC % Seg Neutrophils # Seg Neutrophils # Man Lymphocytes # (Manual) Monocytes # (Manual) Eosinophils # (Manual) Basophils # (Manual) PT INR POC ABG pH ABG pH POC ABG pCO2 POC ABG pO2 ABG pO2 ABG O2 Saturation ABG Base Excess ABG Hemoglobin Oxyhemoglobin Sodium Potassium Chloride 107.1 H Carbon Dioxide BUN 49 H Creatinine 3.3 H Glucose 172 H POC Glucose 206 H 238 H Calcium Phosphorus Magnesium 2.40 H Iron TIBC Ferritin Total Bilirubin AST ALT Alkaline Phosphatase Total Creatine Kinase Troponin T C-Reactive Protein Total Protein Albumin Triglycerides HDL Cholesterol Miscellaneous Test Crossmatch 08/23/17 08/23/17 08/24/17 17:21 23:13 04:00 WBC 34.2 H RBC 2.86 L Hgb 8.4 L Hct 25.9 L MCV MCH RDW 17.9 H Plt Count Lymph % (Auto) [place] % (Auto) [place] # Seg Neutrophils % Seg Neuts % (Manual) 85.0 H Lymphocytes % (Manual) 0.5 L Monocytes % (Manual) Nucleated RBC % 1.0 H Seg Neutrophils # Seg Neutrophils # Man 29.1 H Lymphocytes # (Manual) 0.2 L Monocytes # (Manual) 2.4 H Eosinophils # (Manual) Basophils # (Manual) PT INR POC ABG pH ABG pH POC ABG pCO2 POC ABG pO2 ABG pO2 ABG O2 Saturation ABG Base Excess ABG Hemoglobin Oxyhemoglobin Sodium Potassium Chloride Carbon Dioxide BUN Creatinine Glucose POC Glucose 226 H 183 H Calcium Phosphorus Magnesium Iron TIBC Ferritin Total Bilirubin AST ALT Alkaline Phosphatase Total Creatine Kinase Troponin T C-Reactive Protein Total Protein Albumin Triglycerides HDL Cholesterol Miscellaneous Test Crossmatch 08/24/17 08/24/17 08/24/17 05:06 09:30 12:04 WBC RBC Hgb Hct MCV MCH RDW Plt Count Lymph % (Auto) [place] % (Auto) [place] # Seg Neutrophils % Seg Neuts % (Manual) Lymphocytes % (Manual) Monocytes % (Manual) Nucleated RBC % Seg Neutrophils # Seg Neutrophils # Man Lymphocytes # (Manual) Monocytes # (Manual) Eosinophils # (Manual) Basophils # (Manual) PT INR POC ABG pH ABG pH POC ABG pCO2 POC ABG pO2 ABG pO2 ABG O2 Saturation ABG Base Excess ABG Hemoglobin Oxyhemoglobin Sodium Potassium Chloride Carbon Dioxide BUN 46 H Creatinine 2.5 H Glucose 176 H POC Glucose 201 H 181 H Calcium Phosphorus Magnesium Iron TIBC Ferritin Total Bilirubin AST ALT Alkaline Phosphatase Total Creatine Kinase Troponin T C-Reactive Protein Total Protein Albumin Triglycerides HDL Cholesterol Miscellaneous Test Crossmatch 08/24/17 08/24/17 08/25/17 18:04 23:05 05:05 WBC RBC Hgb Hct MCV MCH RDW Plt Count Lymph % (Auto) [place] % (Auto) [place] # Seg Neutrophils % Seg Neuts % (Manual) Lymphocytes % (Manual) Monocytes % (Manual) Nucleated RBC % Seg Neutrophils # Seg Neutrophils # Man Lymphocytes # (Manual) Monocytes # (Manual) Eosinophils # (Manual) Basophils # (Manual) PT INR POC ABG pH ABG pH POC ABG pCO2 POC ABG pO2 ABG pO2 ABG O2 Saturation ABG Base Excess ABG Hemoglobin Oxyhemoglobin Sodium Potassium Chloride Carbon Dioxide BUN Creatinine Glucose POC Glucose 189 H 175 H 190 H Calcium Phosphorus Magnesium Iron TIBC Ferritin Total Bilirubin AST ALT Alkaline Phosphatase Total Creatine Kinase Troponin T C-Reactive Protein Total Protein Albumin Triglycerides HDL Cholesterol Miscellaneous Test Crossmatch 08/25/17 08/25/17 08/26/17 07:02 11:53 05:30 WBC 33.5 H RBC 2.47 L Hgb 7.3 L Hct 23.0 L MCV MCH RDW 21.3 H Plt Count Lymph % (Auto) [place] % (Auto) [place] # Seg Neutrophils % Seg Neuts % (Manual) 92.0 H Lymphocytes % (Manual) 1.0 L Monocytes % (Manual) Nucleated RBC % Seg Neutrophils # Seg Neutrophils # Man 30.8 H Lymphocytes # (Manual) 0.3 L Monocytes # (Manual) Eosinophils # (Manual) Basophils # (Manual) PT INR POC ABG pH ABG pH POC ABG pCO2 POC ABG pO2 ABG pO2 ABG O2 Saturation ABG Base Excess ABG Hemoglobin Oxyhemoglobin Sodium Potassium Chloride Carbon Dioxide BUN 32 H Creatinine 5.0 H D Glucose 117 H POC Glucose 191 H Calcium 8.0 L Phosphorus Magnesium Iron TIBC Ferritin Total Bilirubin AST ALT Alkaline Phosphatase Total Creatine Kinase Troponin T C-Reactive Protein Total Protein Albumin Triglycerides HDL Cholesterol Miscellaneous Test Crossmatch 08/26/17 08/26/17 08/26/17 05:30 06:44 13:26 WBC RBC Hgb Hct MCV MCH RDW Plt Count Lymph % (Auto) [place] % (Auto) [place] # Seg Neutrophils % Seg Neuts % (Manual) Lymphocytes % (Manual) Monocytes % (Manual) Nucleated RBC % Seg Neutrophils # Seg Neutrophils # Man Lymphocytes # (Manual) Monocytes # (Manual) Eosinophils # (Manual) Basophils # (Manual) PT INR POC ABG pH ABG pH POC ABG pCO2 POC ABG pO2 ABG pO2 ABG O2 Saturation ABG Base Excess ABG Hemoglobin Oxyhemoglobin Sodium Potassium 5.2 H Chloride Carbon Dioxide BUN 80 H Creatinine 3.4 H Glucose 193 H POC Glucose 232 H 207 H Calcium 8.3 L Phosphorus 6.80 H D Magnesium 2.60 H Iron TIBC Ferritin Total Bilirubin AST 135 H ALT Alkaline Phosphatase 211 H Total Creatine Kinase Troponin T C-Reactive Protein Total Protein 4.8 L Albumin 2.0 L Triglycerides HDL Cholesterol Miscellaneous Test Crossmatch 08/27/17 08/27/17 08/27/17 01:08 06:20 06:20 WBC 35.0 H RBC 2.75 L Hgb 8.4 L Hct 25.1 L MCV MCH RDW 21.8 H Plt Count Lymph % (Auto) [place] % (Auto) [place] # Seg Neutrophils % Seg Neuts % (Manual) Lymphocytes % (Manual) 4.5 L Monocytes % (Manual) Nucleated RBC % Seg Neutrophils # Seg Neutrophils # Man 31.9 H Lymphocytes # (Manual) Monocytes # (Manual) 1.2 H Eosinophils # (Manual) Basophils # (Manual) PT INR POC ABG pH ABG pH POC ABG pCO2 POC ABG pO2 ABG pO2 ABG O2 Saturation ABG Base Excess ABG Hemoglobin Oxyhemoglobin Sodium Potassium Chloride Carbon Dioxide BUN 61 H Creatinine 2.6 H Glucose 184 H POC Glucose 146 H Calcium Phosphorus 4.90 H D Magnesium Iron TIBC Ferritin Total Bilirubin AST ALT Alkaline Phosphatase Total Creatine Kinase Troponin T C-Reactive Protein Total Protein Albumin Triglycerides HDL Cholesterol Miscellaneous Test Crossmatch 08/27/17 08/27/17 08/27/17 07:01 09:17 12:52 WBC RBC Hgb Hct MCV MCH RDW Plt Count Lymph % (Auto) [place] % (Auto) [place] # Seg Neutrophils % Seg Neuts % (Manual) Lymphocytes % (Manual) Monocytes % (Manual) Nucleated RBC % Seg Neutrophils # Seg Neutrophils # Man Lymphocytes # (Manual) Monocytes # (Manual) Eosinophils # (Manual) Basophils # (Manual) PT INR POC ABG pH ABG pH POC ABG pCO2 POC ABG pO2 ABG pO2 ABG O2 Saturation ABG Base Excess ABG Hemoglobin Oxyhemoglobin Sodium Potassium Chloride Carbon Dioxide BUN Creatinine Glucose POC Glucose 165 H 198 H 218 H Calcium Phosphorus Magnesium Iron TIBC Ferritin Total Bilirubin AST ALT Alkaline Phosphatase Total Creatine Kinase Troponin T C-Reactive Protein Total Protein Albumin Triglycerides HDL Cholesterol Miscellaneous Test Crossmatch 08/27/17 08/28/17 08/28/17 17:27 02:13 06:46 WBC RBC Hgb Hct MCV MCH RDW Plt Count Lymph % (Auto) [place] % (Auto) [place] # Seg Neutrophils % Seg Neuts % (Manual) Lymphocytes % (Manual) Monocytes % (Manual) Nucleated RBC % Seg Neutrophils # Seg Neutrophils # Man Lymphocytes # (Manual) Monocytes # (Manual) Eosinophils # (Manual) Basophils # (Manual) PT INR POC ABG pH ABG pH POC ABG pCO2 POC ABG pO2 ABG pO2 ABG O2 Saturation ABG Base Excess ABG Hemoglobin Oxyhemoglobin Sodium Potassium Chloride Carbon Dioxide BUN Creatinine Glucose POC Glucose 151 H 155 H 230 H Calcium Phosphorus Magnesium Iron TIBC Ferritin Total Bilirubin AST ALT Alkaline Phosphatase Total Creatine Kinase Troponin T C-Reactive Protein Total Protein Albumin Triglycerides HDL Cholesterol Miscellaneous Test Crossmatch 08/28/17 08/28/17 08/28/17 06:53 06:53 08:19 WBC 31.1 H RBC 2.26 L Hgb 6.8 L Hct 20.9 L MCV MCH RDW 21.7 H Plt Count Lymph % (Auto) [place] % (Auto) [place] # Seg Neutrophils % Seg Neuts % (Manual) 83.0 H Lymphocytes % (Manual) 4.0 L Monocytes % (Manual) Nucleated RBC % Seg Neutrophils # Seg Neutrophils # Man 25.8 H Lymphocytes # (Manual) Monocytes # (Manual) Eosinophils # (Manual) Basophils # (Manual) PT INR POC ABG pH ABG pH POC ABG pCO2 POC ABG pO2 ABG pO2 ABG O2 Saturation ABG Base Excess ABG Hemoglobin Oxyhemoglobin Sodium Potassium Chloride Carbon Dioxide BUN 81 H Creatinine 3.4 H Glucose 218 H POC Glucose 239 H Calcium Phosphorus 4.90 H Magnesium Iron TIBC Ferritin Total Bilirubin AST ALT Alkaline Phosphatase Total Creatine Kinase Troponin T C-Reactive Protein Total Protein Albumin Triglycerides HDL Cholesterol Miscellaneous Test Crossmatch 08/28/17 08/28/17 08/28/17 11:56 13:05 13:29 WBC RBC Hgb Hct MCV MCH RDW Plt Count Lymph % (Auto) [place] % (Auto) [place] # Seg Neutrophils % Seg Neuts % (Manual) Lymphocytes % (Manual) Monocytes % (Manual) Nucleated RBC % Seg Neutrophils # Seg Neutrophils # Man Lymphocytes # (Manual) Monocytes # (Manual) Eosinophils # (Manual) Basophils # (Manual) PT 16.7 H INR 1.29 H POC ABG pH ABG pH POC ABG pCO2 POC ABG pO2 338 H ABG pO2 ABG O2 Saturation ABG Base Excess ABG Hemoglobin Oxyhemoglobin Sodium Potassium Chloride Carbon Dioxide BUN Creatinine Glucose POC Glucose Calcium Phosphorus Magnesium Iron TIBC Ferritin Total Bilirubin AST ALT Alkaline Phosphatase Total Creatine Kinase Troponin T C-Reactive Protein Total Protein Albumin Triglycerides HDL Cholesterol Miscellaneous Test Crossmatch See Detail 08/28/17 08/28/17 08/29/17 16:22 19:20 04:24 WBC RBC Hgb Hct MCV MCH RDW Plt Count Lymph % (Auto) [place] % (Auto) [place] # Seg Neutrophils % Seg Neuts % (Manual) Lymphocytes % (Manual) Monocytes % (Manual) Nucleated RBC % Seg Neutrophils # Seg Neutrophils # Man Lymphocytes # (Manual) Monocytes # (Manual) Eosinophils # (Manual) Basophils # (Manual) PT INR POC ABG pH 7.469 H ABG pH POC ABG pCO2 POC ABG pO2 240 H ABG pO2 ABG O2 Saturation ABG Base Excess ABG Hemoglobin Oxyhemoglobin Sodium Potassium Chloride Carbon Dioxide BUN Creatinine Glucose POC Glucose 209 H 195 H Calcium Phosphorus Magnesium Iron TIBC Ferritin Total Bilirubin AST ALT Alkaline Phosphatase Total Creatine Kinase Troponin T C-Reactive Protein Total Protein Albumin Triglycerides HDL Cholesterol Miscellaneous Test Crossmatch 08/29/17 08/29/17 08/29/17 04:30 04:30 12:07 WBC 44.9 H* RBC Hgb Hct MCV MCH RDW 23.1 H Plt Count Lymph % (Auto) [place] % (Auto) [place] # Seg Neutrophils % Seg Neuts % (Manual) 38.0 L Lymphocytes % (Manual) 10.0 L Monocytes % (Manual) 10.0 H Nucleated RBC % 6.0 H Seg Neutrophils # Seg Neutrophils # Man 17.1 H Lymphocytes # (Manual) Monocytes # (Manual) 4.5 H Eosinophils # (Manual) Basophils # (Manual) PT INR POC ABG pH ABG pH POC ABG pCO2 POC ABG pO2 ABG pO2 ABG O2 Saturation ABG Base Excess ABG Hemoglobin Oxyhemoglobin Sodium Potassium Chloride Carbon Dioxide BUN 61 H Creatinine 2.4 H Glucose 226 H POC Glucose 200 H Calcium Phosphorus Magnesium Iron TIBC Ferritin Total Bilirubin AST ALT Alkaline Phosphatase Total Creatine Kinase Troponin T C-Reactive Protein Total Protein Albumin Triglycerides HDL Cholesterol Miscellaneous Test Crossmatch 08/29/17 08/29/17 08/29/17 12:30 12:30 17:23 WBC RBC Hgb Hct MCV MCH RDW Plt Count Lymph % (Auto) [place] % (Auto) [place] # Seg Neutrophils % Seg Neuts % (Manual) Lymphocytes % (Manual) Monocytes % (Manual) Nucleated RBC % Seg Neutrophils # Seg Neutrophils # Man Lymphocytes # (Manual) Monocytes # (Manual) Eosinophils # (Manual) Basophils # (Manual) PT INR POC ABG pH ABG pH POC ABG pCO2 POC ABG pO2 ABG pO2 ABG O2 Saturation ABG Base Excess ABG Hemoglobin Oxyhemoglobin Sodium Potassium Chloride Carbon Dioxide BUN Creatinine Glucose POC Glucose 270 H Calcium Phosphorus Magnesium Iron TIBC Ferritin Total Bilirubin AST ALT Alkaline Phosphatase Total Creatine Kinase Troponin T C-Reactive Protein 19.10 H Total Protein Albumin Triglycerides HDL Cholesterol Miscellaneous Test Flexitest 1 H Crossmatch 08/30/17 08/30/17 08/30/17 00:10 01:30 03:31 WBC RBC Hgb Hct MCV MCH RDW Plt Count Lymph % (Auto) [place] % (Auto) [place] # Seg Neutrophils % Seg Neuts % (Manual) Lymphocytes % (Manual) Monocytes % (Manual) Nucleated RBC % Seg Neutrophils # Seg Neutrophils # Man Lymphocytes # (Manual) Monocytes # (Manual) Eosinophils # (Manual) Basophils # (Manual) PT INR POC ABG pH 7.168 L 7.335 L ABG pH POC ABG pCO2 72.8 H POC ABG pO2 257 H 117 H ABG pO2 ABG O2 Saturation ABG Base Excess ABG Hemoglobin Oxyhemoglobin Sodium Potassium Chloride Carbon Dioxide BUN Creatinine Glucose POC Glucose 245 H Calcium Phosphorus Magnesium Iron TIBC Ferritin Total Bilirubin AST ALT Alkaline Phosphatase Total Creatine Kinase Troponin T C-Reactive Protein Total Protein Albumin Triglycerides HDL Cholesterol Miscellaneous Test Crossmatch 08/30/17 08/30/17 08/30/17 05:20 05:20 05:20 WBC 40.9 H* RBC 3.64 L Hgb Hct MCV MCH RDW 24.3 H Plt Count Lymph % (Auto) [place] % (Auto) [place] # Seg Neutrophils % Seg Neuts % (Manual) 80.0 H Lymphocytes % (Manual) 3.0 L Monocytes % (Manual) Nucleated RBC % 1.0 H Seg Neutrophils # Seg Neutrophils # Man 32.7 H Lymphocytes # (Manual) Monocytes # (Manual) Eosinophils # (Manual) Basophils # (Manual) PT INR POC ABG pH ABG pH POC ABG pCO2 POC ABG pO2 ABG pO2 ABG O2 Saturation ABG Base Excess ABG Hemoglobin Oxyhemoglobin Sodium Potassium Chloride Carbon Dioxide BUN 83 H Creatinine 2.9 H Glucose 334 H POC Glucose 309 H Calcium Phosphorus Magnesium Iron TIBC Ferritin Total Bilirubin AST ALT Alkaline Phosphatase Total Creatine Kinase Troponin T C-Reactive Protein Total Protein Albumin Triglycerides HDL Cholesterol Miscellaneous Test Crossmatch 08/30/17 08/30/17 08/31/17 12:18 17:36 00:17 WBC RBC Hgb Hct MCV MCH RDW Plt Count Lymph % (Auto) [place] % (Auto) [place] # Seg Neutrophils % Seg Neuts % (Manual) Lymphocytes % (Manual) Monocytes % (Manual) Nucleated RBC % Seg Neutrophils # Seg Neutrophils # Man Lymphocytes # (Manual) Monocytes # (Manual) Eosinophils # (Manual) Basophils # (Manual) PT INR POC ABG pH ABG pH POC ABG pCO2 POC ABG pO2 ABG pO2 ABG O2 Saturation ABG Base Excess ABG Hemoglobin Oxyhemoglobin Sodium Potassium Chloride Carbon Dioxide BUN Creatinine Glucose POC Glucose 273 H 293 H 360 H Calcium Phosphorus Magnesium Iron TIBC Ferritin Total Bilirubin AST ALT Alkaline Phosphatase Total Creatine Kinase Troponin T C-Reactive Protein Total Protein Albumin Triglycerides HDL Cholesterol Miscellaneous Test Crossmatch 08/31/17 08/31/17 08/31/17 05:30 05:30 05:32 WBC 29.9 H RBC 2.89 L Hgb 8.2 L Hct 24.7 L D MCV MCH RDW 24.4 H Plt Count Lymph % (Auto) [place] % (Auto) [place] # Seg Neutrophils % Seg Neuts % (Manual) Lymphocytes % (Manual) 2.0 L Monocytes % (Manual) Nucleated RBC % 2.0 H Seg Neutrophils # Seg Neutrophils # Man 18.5 H Lymphocytes # (Manual) 0.6 L Monocytes # (Manual) 0.9 H Eosinophils # (Manual) Basophils # (Manual) PT INR POC ABG pH ABG pH POC ABG pCO2 POC ABG pO2 ABG pO2 ABG O2 Saturation ABG Base Excess ABG Hemoglobin Oxyhemoglobin Sodium Potassium Chloride Carbon Dioxide BUN 62 H Creatinine 2.2 H Glucose 245 H POC Glucose 257 H Calcium Phosphorus 2.10 L D Magnesium 1.60 L Iron TIBC Ferritin Total Bilirubin AST ALT Alkaline Phosphatase Total Creatine Kinase Troponin T C-Reactive Protein Total Protein Albumin Triglycerides HDL Cholesterol Miscellaneous Test Crossmatch 08/31/17 08/31/17 08/31/17 11:56 12:05 18:14 WBC 32.5 H RBC 3.19 L Hgb 8.8 L Hct 27.9 L MCV MCH RDW 24.9 H Plt Count Lymph % (Auto) [place] % (Auto) [place] # Seg Neutrophils % Seg Neuts % (Manual) Lymphocytes % (Manual) 1.0 L Monocytes % (Manual) 12.0 H Nucleated RBC % 1.0 H Seg Neutrophils # Seg Neutrophils # Man 13.3 H Lymphocytes # (Manual) 0.3 L Monocytes # (Manual) 3.9 H Eosinophils # (Manual) Basophils # (Manual) PT INR POC ABG pH ABG pH POC ABG pCO2 POC ABG pO2 ABG pO2 ABG O2 Saturation ABG Base Excess ABG Hemoglobin Oxyhemoglobin Sodium Potassium Chloride Carbon Dioxide BUN Creatinine Glucose POC Glucose 245 H Calcium Phosphorus Magnesium Iron TIBC Ferritin Total Bilirubin AST ALT Alkaline Phosphatase Total Creatine Kinase Troponin T C-Reactive Protein Total Protein Albumin Triglycerides HDL Cholesterol Miscellaneous Test Crossmatch See Detail 08/31/17 08/31/17 08/31/17 18:14 18:15 18:22 WBC RBC Hgb Hct MCV MCH RDW Plt Count Lymph % (Auto) [place] % (Auto) [place] # Seg Neutrophils % Seg Neuts % (Manual) Lymphocytes % (Manual) Monocytes % (Manual) Nucleated RBC % Seg Neutrophils # Seg Neutrophils # Man Lymphocytes # (Manual) Monocytes # (Manual) Eosinophils # (Manual) Basophils # (Manual) PT 15.1 H INR POC ABG pH ABG pH POC ABG pCO2 POC ABG pO2 ABG pO2 ABG O2 Saturation ABG Base Excess ABG Hemoglobin Oxyhemoglobin Sodium 136 L Potassium Chloride Carbon Dioxide 21 L BUN 69 H Creatinine 2.3 H Glucose 227 H POC Glucose 240 H Calcium Phosphorus 2.40 L Magnesium 1.50 L Iron TIBC Ferritin Total Bilirubin AST 143 H ALT 114 H Alkaline Phosphatase 267 H Total Creatine Kinase Troponin T C-Reactive Protein Total Protein 4.1 L Albumin 1.8 L Triglycerides HDL Cholesterol Miscellaneous Test Crossmatch 08/31/17 09/01/17 09/01/17 23:53 05:00 05:00 WBC 33.9 H RBC 2.85 L Hgb 7.8 L Hct 24.8 L MCV MCH 27 L RDW 23.9 H Plt Count Lymph % (Auto) [place] % (Auto) [place] # Seg Neutrophils % Seg Neuts % (Manual) Lymphocytes % (Manual) 5.0 L Monocytes % (Manual) Nucleated RBC % Seg Neutrophils # Seg Neutrophils # Man 23.1 H Lymphocytes # (Manual) Monocytes # (Manual) Eosinophils # (Manual) Basophils # (Manual) PT INR POC ABG pH ABG pH POC ABG pCO2 POC ABG pO2 ABG pO2 ABG O2 Saturation ABG Base Excess ABG Hemoglobin Oxyhemoglobin Sodium Potassium Chloride Carbon Dioxide BUN 51 H Creatinine 1.8 H Glucose 195 H POC Glucose 301 H Calcium Phosphorus 1.70 L D Magnesium 1.60 L Iron TIBC Ferritin Total Bilirubin AST 80 H ALT 82 H Alkaline Phosphatase 243 H Total Creatine Kinase Troponin T C-Reactive Protein Total Protein 4.2 L Albumin 1.7 L Triglycerides HDL Cholesterol Miscellaneous Test Crossmatch 09/01/17 09/01/17 09/01/17 05:20 05:47 11:37 WBC RBC Hgb Hct MCV MCH RDW Plt Count Lymph % (Auto) [place] % (Auto) [place] # Seg Neutrophils % Seg Neuts % (Manual) Lymphocytes % (Manual) Monocytes % (Manual) Nucleated RBC % Seg Neutrophils # Seg Neutrophils # Man Lymphocytes # (Manual) Monocytes # (Manual) Eosinophils # (Manual) Basophils # (Manual) PT INR POC ABG pH ABG pH 7.348 L POC ABG pCO2 POC ABG pO2 ABG pO2 70.2 L ABG O2 Saturation ABG Base Excess ABG Hemoglobin 7.5 L Oxyhemoglobin Sodium Potassium Chloride Carbon Dioxide BUN Creatinine Glucose POC Glucose 230 H 254 H Calcium Phosphorus Magnesium Iron TIBC Ferritin Total Bilirubin AST ALT Alkaline Phosphatase Total Creatine Kinase Troponin T C-Reactive Protein Total Protein Albumin Triglycerides HDL Cholesterol Miscellaneous Test Crossmatch 09/01/17 09/01/17 09/02/17 17:39 23:14 04:55 WBC RBC Hgb Hct MCV MCH RDW Plt Count Lymph % (Auto) [place] % (Auto) [place] # Seg Neutrophils % Seg Neuts % (Manual) Lymphocytes % (Manual) Monocytes % (Manual) Nucleated RBC % Seg Neutrophils # Seg Neutrophils # Man Lymphocytes # (Manual) Monocytes # (Manual) Eosinophils # (Manual) Basophils # (Manual) PT INR POC ABG pH ABG pH POC ABG pCO2 POC ABG pO2 ABG pO2 124.8 H ABG O2 Saturation ABG Base Excess -2.9 L ABG Hemoglobin 5.8 L Oxyhemoglobin Sodium Potassium Chloride Carbon Dioxide BUN Creatinine Glucose POC Glucose 297 H 291 H Calcium Phosphorus Magnesium Iron TIBC Ferritin Total Bilirubin AST ALT Alkaline Phosphatase Total Creatine Kinase Troponin T C-Reactive Protein Total Protein Albumin Triglycerides HDL Cholesterol Miscellaneous Test Crossmatch 09/02/17 09/02/17 09/02/17 05:31 06:10 11:58 WBC RBC Hgb Hct MCV MCH RDW Plt Count Lymph % (Auto) [place] % (Auto) [place] # Seg Neutrophils % Seg Neuts % (Manual) Lymphocytes % (Manual) Monocytes % (Manual) Nucleated RBC % Seg Neutrophils # Seg Neutrophils # Man Lymphocytes # (Manual) Monocytes # (Manual) Eosinophils # (Manual) Basophils # (Manual) PT INR POC ABG pH ABG pH POC ABG pCO2 POC ABG pO2 ABG pO2 ABG O2 Saturation ABG Base Excess ABG Hemoglobin Oxyhemoglobin Sodium Potassium Chloride Carbon Dioxide BUN 68 H Creatinine 2.2 H Glucose 369 H POC Glucose 245 H 333 H Calcium 8.2 L Phosphorus Magnesium Iron TIBC Ferritin Total Bilirubin AST ALT Alkaline Phosphatase Total Creatine Kinase Troponin T C-Reactive Protein Total Protein Albumin Triglycerides HDL Cholesterol Miscellaneous Test Crossmatch 09/02/17 09/02/17 09/03/17 15:37 23:50 04:00 WBC RBC Hgb Hct MCV MCH RDW Plt Count Lymph % (Auto) [place] % (Auto) [place] # Seg Neutrophils % Seg Neuts % (Manual) Lymphocytes % (Manual) Monocytes % (Manual) Nucleated RBC % Seg Neutrophils # Seg Neutrophils # Man Lymphocytes # (Manual) Monocytes # (Manual) Eosinophils # (Manual) Basophils # (Manual) PT INR POC ABG pH ABG pH POC ABG pCO2 POC ABG pO2 ABG pO2 ABG O2 Saturation ABG Base Excess ABG Hemoglobin Oxyhemoglobin Sodium Potassium Chloride Carbon Dioxide BUN 59 H Creatinine 1.9 H Glucose 231 H POC Glucose 314 H 240 H Calcium 8.0 L Phosphorus Magnesium Iron TIBC Ferritin Total Bilirubin AST ALT Alkaline Phosphatase 265 H Total Creatine Kinase Troponin T C-Reactive Protein Total Protein 4.4 L Albumin 1.7 L Triglycerides 180 H HDL Cholesterol Miscellaneous Test Crossmatch 09/03/17 09/03/17 09/03/17 05:00 05:32 11:52 WBC 41.5 H* RBC 2.46 L Hgb 6.9 L Hct 21.3 L MCV MCH RDW 24.9 H Plt Count Lymph % (Auto) [place] % (Auto) [place] # Seg Neutrophils % Seg Neuts % (Manual) Lymphocytes % (Manual) 3.0 L Monocytes % (Manual) 9.5 H Nucleated RBC % 1.5 H Seg Neutrophils # Seg Neutrophils # Man 28.8 H Lymphocytes # (Manual) Monocytes # (Manual) 3.9 H Eosinophils # (Manual) Basophils # (Manual) PT INR POC ABG pH ABG pH POC ABG pCO2 POC ABG pO2 ABG pO2 ABG O2 Saturation ABG Base Excess ABG Hemoglobin Oxyhemoglobin Sodium Potassium Chloride Carbon Dioxide BUN Creatinine Glucose POC Glucose 188 H 285 H Calcium Phosphorus Magnesium Iron TIBC Ferritin Total Bilirubin AST ALT Alkaline Phosphatase Total Creatine Kinase Troponin T C-Reactive Protein Total Protein Albumin Triglycerides HDL Cholesterol Miscellaneous Test Crossmatch 09/03/17 09/03/17 09/03/17 16:55 17:44 23:56 WBC RBC Hgb Hct MCV MCH RDW Plt Count Lymph % (Auto) [place] % (Auto) [place] # Seg Neutrophils % Seg Neuts % (Manual) Lymphocytes % (Manual) Monocytes % (Manual) Nucleated RBC % Seg Neutrophils # Seg Neutrophils # Man Lymphocytes # (Manual) Monocytes # (Manual) Eosinophils # (Manual) Basophils # (Manual) PT INR POC ABG pH ABG pH POC ABG pCO2 POC ABG pO2 ABG pO2 ABG O2 Saturation ABG Base Excess ABG Hemoglobin Oxyhemoglobin Sodium Potassium Chloride Carbon Dioxide BUN Creatinine Glucose POC Glucose 217 H 193 H Calcium Phosphorus Magnesium Iron TIBC Ferritin Total Bilirubin AST ALT Alkaline Phosphatase Total Creatine Kinase Troponin T C-Reactive Protein Total Protein Albumin Triglycerides HDL Cholesterol Miscellaneous Test Crossmatch See Detail 09/03/17 09/04/17 09/04/17 Unknown 03:47 04:32 WBC 44.7 H* RBC 3.12 L Hgb 8.7 L Hct 26.7 L MCV MCH RDW 23.5 H Plt Count Lymph % (Auto) [place] % (Auto) [place] # Seg Neutrophils % Seg Neuts % (Manual) Lymphocytes % (Manual) 4.0 L Monocytes % (Manual) Nucleated RBC % 2.0 H Seg Neutrophils # Seg Neutrophils # Man 30.8 H Lymphocytes # (Manual) Monocytes # (Manual) 2.2 H Eosinophils # (Manual) Basophils # (Manual) PT INR POC ABG pH ABG pH POC ABG pCO2 POC ABG pO2 ABG pO2 133.4 H 135.0 H ABG O2 Saturation ABG Base Excess -2.5 L ABG Hemoglobin 5.8 L 7.9 L Oxyhemoglobin Sodium Potassium Chloride Carbon Dioxide BUN Creatinine Glucose POC Glucose Calcium Phosphorus Magnesium Iron TIBC Ferritin Total Bilirubin AST ALT Alkaline Phosphatase Total Creatine Kinase Troponin T C-Reactive Protein Total Protein Albumin Triglycerides HDL Cholesterol Miscellaneous Test Crossmatch 09/04/17 09/04/17 09/04/17 04:32 05:48 10:43 WBC RBC Hgb Hct MCV MCH RDW Plt Count Lymph % (Auto) [place] % (Auto) [place] # Seg Neutrophils % Seg Neuts % (Manual) Lymphocytes % (Manual) Monocytes % (Manual) Nucleated RBC % Seg Neutrophils # Seg Neutrophils # Man Lymphocytes # (Manual) Monocytes # (Manual) Eosinophils # (Manual) Basophils # (Manual) PT INR POC ABG pH ABG pH POC ABG pCO2 POC ABG pO2 ABG pO2 ABG O2 Saturation ABG Base Excess ABG Hemoglobin Oxyhemoglobin Sodium 136 L Potassium 5.2 H D Chloride 94.2 L Carbon Dioxide BUN 71 H Creatinine 2.3 H Glucose 235 H POC Glucose 329 H Calcium 8.3 L Phosphorus Magnesium Iron TIBC Ferritin Total Bilirubin AST ALT Alkaline Phosphatase Total Creatine Kinase Troponin T C-Reactive Protein Total Protein Albumin Triglycerides HDL Cholesterol Miscellaneous Test Flexitest 1 H Crossmatch 09/04/17 09/04/17 09/05/17 12:38 17:30 00:15 WBC RBC Hgb Hct MCV MCH RDW Plt Count Lymph % (Auto) [place] % (Auto) [place] # Seg Neutrophils % Seg Neuts % (Manual) Lymphocytes % (Manual) Monocytes % (Manual) Nucleated RBC % Seg Neutrophils # Seg Neutrophils # Man Lymphocytes # (Manual) Monocytes # (Manual) Eosinophils # (Manual) Basophils # (Manual) PT INR POC ABG pH ABG pH POC ABG pCO2 POC ABG pO2 ABG pO2 ABG O2 Saturation ABG Base Excess ABG Hemoglobin Oxyhemoglobin Sodium Potassium Chloride Carbon Dioxide BUN Creatinine Glucose POC Glucose 444 H 331 H 362 H Calcium Phosphorus Magnesium Iron TIBC Ferritin Total Bilirubin AST ALT Alkaline Phosphatase Total Creatine Kinase Troponin T C-Reactive Protein Total Protein Albumin Triglycerides HDL Cholesterol Miscellaneous Test Crossmatch 09/05/17 09/05/17 09/05/17 03:55 03:55 12:12 WBC 35.3 H RBC 2.87 L Hgb 8.1 L Hct 24.6 L MCV MCH RDW 23.3 H Plt Count Lymph % (Auto) [place] % (Auto) [place] # Seg Neutrophils % Seg Neuts % (Manual) 89.5 H Lymphocytes % (Manual) 3.0 L Monocytes % (Manual) Nucleated RBC % 2.5 H Seg Neutrophils # Seg Neutrophils # Man 31.6 H Lymphocytes # (Manual) 1.1 L Monocytes # (Manual) Eosinophils # (Manual) Basophils # (Manual) PT INR POC ABG pH ABG pH POC ABG pCO2 POC ABG pO2 ABG pO2 ABG O2 Saturation ABG Base Excess ABG Hemoglobin Oxyhemoglobin Sodium 136 L Potassium Chloride 94.7 L Carbon Dioxide BUN 55 H Creatinine 1.8 H Glucose 193 H POC Glucose 344 H Calcium 8.1 L Phosphorus Magnesium Iron TIBC Ferritin Total Bilirubin AST ALT Alkaline Phosphatase Total Creatine Kinase Troponin T C-Reactive Protein Total Protein Albumin Triglycerides HDL Cholesterol Miscellaneous Test Crossmatch 10/11/1009/05/17 09/05/17 14:32 15:32 16:41 WBC RBC Hgb Hct MCV MCH RDW Plt Count Lymph % (Auto) [place] % (Auto) [place] # Seg Neutrophils % Seg Neuts % (Manual) Lymphocytes % (Manual) Monocytes % (Manual) Nucleated RBC % Seg Neutrophils # Seg Neutrophils # Man Lymphocytes # (Manual) Monocytes # (Manual) Eosinophils # (Manual) Basophils # (Manual) PT INR POC ABG pH ABG pH POC ABG pCO2 POC ABG pO2 ABG pO2 ABG O2 Saturation ABG Base Excess ABG Hemoglobin Oxyhemoglobin Sodium Potassium Chloride Carbon Dioxide BUN Creatinine Glucose POC Glucose 265 H 145 H 188 H Calcium Phosphorus Magnesium Iron TIBC Ferritin Total Bilirubin AST ALT Alkaline Phosphatase Total Creatine Kinase Troponin T C-Reactive Protein Total Protein Albumin Triglycerides HDL Cholesterol Miscellaneous Test Crossmatch 09/05/17 09/05/17 09/05/17 17:28 18:38 20:10 WBC RBC Hgb Hct MCV MCH RDW Plt Count Lymph % (Auto) [place] % (Auto) [place] # Seg Neutrophils % Seg Neuts % (Manual) Lymphocytes % (Manual) Monocytes % (Manual) Nucleated RBC % Seg Neutrophils # Seg Neutrophils # Man Lymphocytes # (Manual) Monocytes # (Manual) Eosinophils # (Manual) Basophils # (Manual) PT INR POC ABG pH ABG pH POC ABG pCO2 POC ABG pO2 ABG pO2 ABG O2 Saturation ABG Base Excess ABG Hemoglobin Oxyhemoglobin Sodium Potassium Chloride Carbon Dioxide BUN Creatinine Glucose POC Glucose 246 H 271 H 165 H Calcium Phosphorus Magnesium Iron TIBC Ferritin Total Bilirubin AST ALT Alkaline Phosphatase Total Creatine Kinase Troponin T C-Reactive Protein Total Protein Albumin Triglycerides HDL Cholesterol Miscellaneous Test Crossmatch 09/05/17 09/05/17 09/06/17 21:06 23:07 00:10 WBC RBC Hgb Hct MCV MCH RDW Plt Count Lymph % (Auto) [place] % (Auto) [place] # Seg Neutrophils % Seg Neuts % (Manual) Lymphocytes % (Manual) Monocytes % (Manual) Nucleated RBC % Seg Neutrophils # Seg Neutrophils # Man Lymphocytes # (Manual) Monocytes # (Manual) Eosinophils # (Manual) Basophils # (Manual) PT INR POC ABG pH ABG pH POC ABG pCO2 POC ABG pO2 ABG pO2 ABG O2 Saturation ABG Base Excess ABG Hemoglobin Oxyhemoglobin Sodium Potassium Chloride Carbon Dioxide BUN Creatinine Glucose POC Glucose 134 H 135 H 147 H Calcium Phosphorus Magnesium Iron TIBC Ferritin Total Bilirubin AST ALT Alkaline Phosphatase Total Creatine Kinase Troponin T C-Reactive Protein Total Protein Albumin Triglycerides HDL Cholesterol Miscellaneous Test Crossmatch 09/06/17 09/06/17 09/06/17 01:08 02:01 03:08 WBC RBC Hgb Hct MCV MCH RDW Plt Count Lymph % (Auto) [place] % (Auto) [place] # Seg Neutrophils % Seg Neuts % (Manual) Lymphocytes % (Manual) Monocytes % (Manual) Nucleated RBC % Seg Neutrophils # Seg Neutrophils # Man Lymphocytes # (Manual) Monocytes # (Manual) Eosinophils # (Manual) Basophils # (Manual) PT INR POC ABG pH ABG pH POC ABG pCO2 POC ABG pO2 ABG pO2 ABG O2 Saturation ABG Base Excess ABG Hemoglobin Oxyhemoglobin Sodium Potassium Chloride Carbon Dioxide BUN Creatinine Glucose POC Glucose 133 H 146 H 135 H Calcium Phosphorus Magnesium Iron TIBC Ferritin Total Bilirubin AST ALT Alkaline Phosphatase Total Creatine Kinase Troponin T C-Reactive Protein Total Protein Albumin Triglycerides HDL Cholesterol Miscellaneous Test Crossmatch 09/06/17 09/06/17 09/06/17 05:30 05:30 05:30 WBC 38.6 H RBC 2.95 L Hgb 8.3 L Hct 25.3 L MCV MCH RDW 22.2 H Plt Count Lymph % (Auto) [place] % (Auto) [place] # Seg Neutrophils % Seg Neuts % (Manual) Lymphocytes % (Manual) 2.0 L Monocytes % (Manual) Nucleated RBC % 5.0 H Seg Neutrophils # Seg Neutrophils # Man 25.9 H Lymphocytes # (Manual) 0.8 L Monocytes # (Manual) 1.9 H Eosinophils # (Manual) Basophils # (Manual) PT INR POC ABG pH ABG pH POC ABG pCO2 POC ABG pO2 ABG pO2 ABG O2 Saturation ABG Base Excess ABG Hemoglobin Oxyhemoglobin Sodium 135 L Potassium Chloride 93.5 L Carbon Dioxide BUN 82 H Creatinine 2.3 H Glucose 148 H POC Glucose Calcium Phosphorus Magnesium Iron TIBC Ferritin Total Bilirubin AST ALT Alkaline Phosphatase Total Creatine Kinase Troponin T C-Reactive Protein 2.80 H Total Protein Albumin Triglycerides HDL Cholesterol Miscellaneous Test Crossmatch 09/06/17 09/06/17 09/06/17 05:48 08:04 09:06 WBC RBC Hgb Hct MCV MCH RDW Plt Count Lymph % (Auto) [place] % (Auto) [place] # Seg Neutrophils % Seg Neuts % (Manual) Lymphocytes % (Manual) Monocytes % (Manual) Nucleated RBC % Seg Neutrophils # Seg Neutrophils # Man Lymphocytes # (Manual) Monocytes # (Manual) Eosinophils # (Manual) Basophils # (Manual) PT INR POC ABG pH ABG pH POC ABG pCO2 POC ABG pO2 ABG pO2 ABG O2 Saturation ABG Base Excess ABG Hemoglobin Oxyhemoglobin Sodium Potassium Chloride Carbon Dioxide BUN Creatinine Glucose POC Glucose 152 H 164 H 172 H Calcium Phosphorus Magnesium Iron TIBC Ferritin Total Bilirubin AST ALT Alkaline Phosphatase Total Creatine Kinase Troponin T C-Reactive Protein Total Protein Albumin Triglycerides HDL Cholesterol Miscellaneous Test Crossmatch 09/06/17 09/06/17 09/06/17 09:57 10:19 10:57 WBC RBC Hgb Hct MCV MCH RDW Plt Count Lymph % (Auto) [place] % (Auto) [place] # Seg Neutrophils % Seg Neuts % (Manual) Lymphocytes % (Manual) Monocytes % (Manual) Nucleated RBC % Seg Neutrophils # Seg Neutrophils # Man Lymphocytes # (Manual) Monocytes # (Manual) Eosinophils # (Manual) Basophils # (Manual) PT INR POC ABG pH ABG pH POC ABG pCO2 POC ABG pO2 ABG pO2 ABG O2 Saturation ABG Base Excess ABG Hemoglobin Oxyhemoglobin Sodium Potassium Chloride Carbon Dioxide BUN Creatinine Glucose POC Glucose 186 H 162 H Calcium Phosphorus Magnesium Iron TIBC Ferritin Total Bilirubin AST ALT Alkaline Phosphatase Total Creatine Kinase Troponin T C-Reactive Protein Total Protein Albumin Triglycerides HDL Cholesterol Miscellaneous Test Flexitest 1 H Crossmatch 09/06/17 09/06/17 09/06/17 13:12 13:40 17:36 WBC RBC Hgb 8.9 L Hct 28.5 L MCV MCH RDW Plt Count Lymph % (Auto) [place] % (Auto) [place] # Seg Neutrophils % Seg Neuts % (Manual) Lymphocytes % (Manual) Monocytes % (Manual) Nucleated RBC % Seg Neutrophils # Seg Neutrophils # Man Lymphocytes # (Manual) Monocytes # (Manual) Eosinophils # (Manual) Basophils # (Manual) PT INR POC ABG pH ABG pH POC ABG pCO2 POC ABG pO2 ABG pO2 ABG O2 Saturation ABG Base Excess ABG Hemoglobin Oxyhemoglobin Sodium Potassium Chloride Carbon Dioxide BUN Creatinine Glucose POC Glucose 166 H 161 H Calcium Phosphorus Magnesium Iron TIBC Ferritin Total Bilirubin AST ALT Alkaline Phosphatase Total Creatine Kinase Troponin T C-Reactive Protein Total Protein Albumin Triglycerides HDL Cholesterol Miscellaneous Test Crossmatch 09/07/17 09/07/17 09/07/17 00:13 03:50 03:50 WBC 47.0 H* RBC 2.81 L Hgb 8.1 L Hct 24.1 L MCV MCH RDW 22.5 H Plt Count Lymph % (Auto) [place] % (Auto) [place] # Seg Neutrophils % Seg Neuts % (Manual) Lymphocytes % (Manual) 9.0 L Monocytes % (Manual) Nucleated RBC % 6.0 H Seg Neutrophils # Seg Neutrophils # Man 27.3 H Lymphocytes # (Manual) Monocytes # (Manual) 0.9 H Eosinophils # (Manual) 1.9 H Basophils # (Manual) PT INR POC ABG pH ABG pH POC ABG pCO2 POC ABG pO2 ABG pO2 ABG O2 Saturation ABG Base Excess ABG Hemoglobin Oxyhemoglobin Sodium 136 L Potassium Chloride 96.3 L Carbon Dioxide BUN 61 H Creatinine 1.7 H Glucose 132 H POC Glucose 183 H Calcium 7.8 L Phosphorus Magnesium Iron TIBC Ferritin Total Bilirubin AST ALT Alkaline Phosphatase Total Creatine Kinase Troponin T C-Reactive Protein Total Protein Albumin Triglycerides HDL Cholesterol Miscellaneous Test Crossmatch 09/07/17 09/07/17 09/07/17 05:12 05:23 11:48 WBC RBC Hgb Hct MCV MCH RDW Plt Count Lymph % (Auto) [place] % (Auto) [place] # Seg Neutrophils % Seg Neuts % (Manual) Lymphocytes % (Manual) Monocytes % (Manual) Nucleated RBC % Seg Neutrophils # Seg Neutrophils # Man Lymphocytes # (Manual) Monocytes # (Manual) Eosinophils # (Manual) Basophils # (Manual) PT INR POC ABG pH ABG pH POC ABG pCO2 POC ABG pO2 ABG pO2 ABG O2 Saturation ABG Base Excess ABG Hemoglobin 7.7 L Oxyhemoglobin 94.8 L Sodium Potassium Chloride Carbon Dioxide BUN Creatinine Glucose POC Glucose 162 H 200 H Calcium Phosphorus Magnesium Iron TIBC Ferritin Total Bilirubin AST ALT Alkaline Phosphatase Total Creatine Kinase Troponin T C-Reactive Protein Total Protein Albumin Triglycerides HDL Cholesterol Miscellaneous Test Crossmatch 09/07/17 09/07/17 09/08/17 17:07 18:21 00:06 WBC RBC Hgb Hct MCV MCH RDW Plt Count Lymph % (Auto) [place] % (Auto) [place] # Seg Neutrophils % Seg Neuts % (Manual) Lymphocytes % (Manual) Monocytes % (Manual) Nucleated RBC % Seg Neutrophils # Seg Neutrophils # Man Lymphocytes # (Manual) Monocytes # (Manual) Eosinophils # (Manual) Basophils # (Manual) PT INR POC ABG pH ABG pH POC ABG pCO2 POC ABG pO2 ABG pO2 ABG O2 Saturation ABG Base Excess ABG Hemoglobin Oxyhemoglobin Sodium Potassium Chloride Carbon Dioxide BUN Creatinine Glucose POC Glucose 181 H 168 H Calcium Phosphorus Magnesium Iron TIBC Ferritin Total Bilirubin AST ALT Alkaline Phosphatase Total Creatine Kinase Troponin T C-Reactive Protein Total Protein Albumin Triglycerides HDL Cholesterol Miscellaneous Test Crossmatch See Detail 09/08/17 09/08/17 09/08/17 04:05 04:05 04:41 WBC 49.7 H* RBC 2.58 L Hgb 7.3 L Hct 22.7 L MCV MCH RDW 22.5 H Plt Count Lymph % (Auto) [place] % (Auto) [place] # Seg Neutrophils % Seg Neuts % (Manual) 90.5 H Lymphocytes % (Manual) 1.5 L Monocytes % (Manual) Nucleated RBC % Seg Neutrophils # Seg Neutrophils # Man 45.0 H Lymphocytes # (Manual) 0.7 L Monocytes # (Manual) 1.7 H Eosinophils # (Manual) Basophils # (Manual) PT INR POC ABG pH ABG pH POC ABG pCO2 POC ABG pO2 ABG pO2 ABG O2 Saturation ABG Base Excess ABG Hemoglobin Oxyhemoglobin Sodium 132 L Potassium Chloride 92.1 L Carbon Dioxide BUN 82 H Creatinine 2.2 H Glucose 162 H POC Glucose 235 H Calcium 8.3 L Phosphorus 5.20 H D Magnesium Iron TIBC Ferritin Total Bilirubin AST ALT Alkaline Phosphatase 199 H Total Creatine Kinase Troponin T C-Reactive Protein Total Protein 4.5 L Albumin 1.7 L Triglycerides HDL Cholesterol Miscellaneous Test Crossmatch 09/08/17 09/08/17 09/08/17 09:21 11:52 17:38 WBC RBC Hgb Hct MCV MCH RDW Plt Count Lymph % (Auto) [place] % (Auto) [place] # Seg Neutrophils % Seg Neuts % (Manual) Lymphocytes % (Manual) Monocytes % (Manual) Nucleated RBC % Seg Neutrophils # Seg Neutrophils # Man Lymphocytes # (Manual) Monocytes # (Manual) Eosinophils # (Manual) Basophils # (Manual) PT INR POC ABG pH ABG pH POC ABG pCO2 POC ABG pO2 ABG pO2 218.5 H ABG O2 Saturation 99.3 H ABG Base Excess -3.5 L ABG Hemoglobin 7.7 L Oxyhemoglobin Sodium Potassium Chloride Carbon Dioxide BUN Creatinine Glucose POC Glucose 220 H 194 H Calcium Phosphorus Magnesium Iron TIBC Ferritin Total Bilirubin AST ALT Alkaline Phosphatase Total Creatine Kinase Troponin T C-Reactive Protein Total Protein Albumin Triglycerides HDL Cholesterol Miscellaneous Test Crossmatch 09/09/17 09/09/17 09/09/17 00:24 03:37 03:37 WBC 33.5 H RBC 2.36 L Hgb 6.7 L Hct 20.9 L MCV MCH RDW 22.7 H Plt Count Lymph % (Auto) [place] % (Auto) [place] # Seg Neutrophils % Seg Neuts % (Manual) Lymphocytes % (Manual) Monocytes % (Manual) Nucleated RBC % Seg Neutrophils # Seg Neutrophils # Man Lymphocytes # (Manual) Monocytes # (Manual) Eosinophils # (Manual) Basophils # (Manual) PT INR POC ABG pH ABG pH POC ABG pCO2 POC ABG pO2 ABG pO2 ABG O2 Saturation ABG Base Excess ABG Hemoglobin Oxyhemoglobin Sodium 132 L Potassium Chloride 91.6 L Carbon Dioxide 21 L BUN 101 H Creatinine 2.6 H Glucose 156 H POC Glucose 182 H Calcium 8.3 L Phosphorus 5.90 H Magnesium 2.60 H Iron TIBC Ferritin Total Bilirubin AST ALT Alkaline Phosphatase Total Creatine Kinase Troponin T C-Reactive Protein Total Protein Albumin Triglycerides HDL Cholesterol Miscellaneous Test Crossmatch 09/09/17 09/09/17 09/09/17 05:29 12:03 18:05 WBC RBC Hgb Hct MCV MCH RDW Plt Count Lymph % (Auto) [place] % (Auto) [place] # Seg Neutrophils % Seg Neuts % (Manual) Lymphocytes % (Manual) Monocytes % (Manual) Nucleated RBC % Seg Neutrophils # Seg Neutrophils # Man Lymphocytes # (Manual) Monocytes # (Manual) Eosinophils # (Manual) Basophils # (Manual) PT INR POC ABG pH ABG pH POC ABG pCO2 POC ABG pO2 ABG pO2 ABG O2 Saturation ABG Base Excess ABG Hemoglobin Oxyhemoglobin Sodium Potassium Chloride Carbon Dioxide BUN Creatinine Glucose POC Glucose 168 H 143 H 173 H Calcium Phosphorus Magnesium Iron TIBC Ferritin Total Bilirubin AST ALT Alkaline Phosphatase Total Creatine Kinase Troponin T C-Reactive Protein Total Protein Albumin Triglycerides HDL Cholesterol Miscellaneous Test Crossmatch 09/09/17 09/09/17 09/10/17 23:30 Unknown 05:04 WBC RBC Hgb Hct MCV MCH RDW Plt Count Lymph % (Auto) [place] % (Auto) [place] # Seg Neutrophils % Seg Neuts % (Manual) Lymphocytes % (Manual) Monocytes % (Manual) Nucleated RBC % Seg Neutrophils # Seg Neutrophils # Man Lymphocytes # (Manual) Monocytes # (Manual) Eosinophils # (Manual) Basophils # (Manual) PT INR POC ABG pH ABG pH 7.323 L POC ABG pCO2 POC ABG pO2 ABG pO2 94.1 H ABG O2 Saturation ABG Base Excess -4.8 L ABG Hemoglobin 8.0 L Oxyhemoglobin 94.9 L Sodium Potassium Chloride Carbon Dioxide BUN Creatinine Glucose POC Glucose 212 H 155 H Calcium Phosphorus Magnesium Iron TIBC Ferritin Total Bilirubin AST ALT Alkaline Phosphatase Total Creatine Kinase Troponin T C-Reactive Protein Total Protein Albumin Triglycerides HDL Cholesterol Miscellaneous Test Crossmatch 09/10/17 09/10/17 09/10/17 07:00 09:55 12:22 WBC 24.7 H RBC 2.62 L Hgb 7.5 L Hct 22.5 L MCV MCH RDW 20.8 H Plt Count Lymph % (Auto) [place] % (Auto) [place] # Seg Neutrophils % Seg Neuts % (Manual) Lymphocytes % (Manual) Monocytes % (Manual) Nucleated RBC % Seg Neutrophils # Seg Neutrophils # Man Lymphocytes # (Manual) Monocytes # (Manual) Eosinophils # (Manual) Basophils # (Manual) PT INR POC ABG pH ABG pH POC ABG pCO2 POC ABG pO2 ABG pO2 ABG O2 Saturation ABG Base Excess ABG Hemoglobin Oxyhemoglobin Sodium Potassium Chloride 97.9 L Carbon Dioxide BUN 78 H Creatinine 2.0 H Glucose 126 H POC Glucose 183 H Calcium 8.2 L Phosphorus Magnesium Iron TIBC Ferritin Total Bilirubin AST ALT Alkaline Phosphatase Total Creatine Kinase Troponin T C-Reactive Protein Total Protein Albumin Triglycerides HDL Cholesterol Miscellaneous Test Crossmatch 09/11/17 09/11/17 09/11/17 00:08 03:50 05:28 WBC 21.6 H RBC 2.52 L Hgb 7.4 L Hct 22.2 L MCV MCH RDW 21.5 H Plt Count Lymph % (Auto) [place] % (Auto) [place] # Seg Neutrophils % Seg Neuts % (Manual) 92.0 H Lymphocytes % (Manual) 3.0 L Monocytes % (Manual) Nucleated RBC % Seg Neutrophils # Seg Neutrophils # Man 19.9 H Lymphocytes # (Manual) 0.6 L Monocytes # (Manual) Eosinophils # (Manual) Basophils # (Manual) PT INR POC ABG pH ABG pH POC ABG pCO2 POC ABG pO2 ABG pO2 ABG O2 Saturation ABG Base Excess ABG Hemoglobin Oxyhemoglobin Sodium Potassium Chloride Carbon Dioxide BUN Creatinine Glucose POC Glucose 213 H 181 H Calcium Phosphorus Magnesium Iron TIBC Ferritin Total Bilirubin AST ALT Alkaline Phosphatase Total Creatine Kinase Troponin T C-Reactive Protein Total Protein Albumin Triglycerides HDL Cholesterol Miscellaneous Test Crossmatch 09/11/17 09/11/17 09/11/17 11:55 17:56 23:12 WBC RBC Hgb Hct MCV MCH RDW Plt Count Lymph % (Auto) [place] % (Auto) [place] # Seg Neutrophils % Seg Neuts % (Manual) Lymphocytes % (Manual) Monocytes % (Manual) Nucleated RBC % Seg Neutrophils # Seg Neutrophils # Man Lymphocytes # (Manual) Monocytes # (Manual) Eosinophils # (Manual) Basophils # (Manual) PT INR POC ABG pH ABG pH POC ABG pCO2 POC ABG pO2 ABG pO2 ABG O2 Saturation ABG Base Excess ABG Hemoglobin Oxyhemoglobin Sodium Potassium Chloride Carbon Dioxide 21 L BUN 80 H Creatinine 2.1 H Glucose 170 H POC Glucose 277 H 206 H Calcium 8.0 L Phosphorus Magnesium Iron TIBC Ferritin Total Bilirubin AST ALT Alkaline Phosphatase Total Creatine Kinase Troponin T C-Reactive Protein Total Protein Albumin Triglycerides HDL Cholesterol Miscellaneous Test Crossmatch 09/11/17 09/12/17 09/12/17 23:36 05:25 05:25 WBC 17.4 H RBC 2.29 L Hgb 6.7 L Hct 20.4 L MCV MCH RDW 21.2 H Plt Count Lymph % (Auto) [place] % (Auto) [place] # Seg Neutrophils % Seg Neuts % (Manual) 79.0 H Lymphocytes % (Manual) 5.0 L Monocytes % (Manual) Nucleated RBC % 1.0 H Seg Neutrophils # Seg Neutrophils # Man 13.7 H Lymphocytes # (Manual) 0.9 L Monocytes # (Manual) 1.2 H Eosinophils # (Manual) Basophils # (Manual) PT INR POC ABG pH ABG pH POC ABG pCO2 POC ABG pO2 ABG pO2 ABG O2 Saturation ABG Base Excess ABG Hemoglobin Oxyhemoglobin Sodium Potassium Chloride Carbon Dioxide BUN Creatinine Glucose POC Glucose 190 H Calcium Phosphorus Magnesium Iron 22 L TIBC 81 L Ferritin Total Bilirubin AST ALT Alkaline Phosphatase Total Creatine Kinase Troponin T C-Reactive Protein Total Protein Albumin Triglycerides HDL Cholesterol Miscellaneous Test Crossmatch 09/12/17 09/12/17 09/12/17 05:25 05:36 09:14 WBC RBC Hgb Hct MCV MCH RDW Plt Count Lymph % (Auto) [place] % (Auto) [place] # Seg Neutrophils % Seg Neuts % (Manual) Lymphocytes % (Manual) Monocytes % (Manual) Nucleated RBC % Seg Neutrophils # Seg Neutrophils # Man Lymphocytes # (Manual) Monocytes # (Manual) Eosinophils # (Manual) Basophils # (Manual) PT INR POC ABG pH ABG pH POC ABG pCO2 POC ABG pO2 ABG pO2 ABG O2 Saturation ABG Base Excess ABG Hemoglobin Oxyhemoglobin Sodium Potassium Chloride Carbon Dioxide BUN Creatinine Glucose POC Glucose 141 H Calcium Phosphorus Magnesium Iron TIBC Ferritin > 2000.0 H Total Bilirubin AST ALT Alkaline Phosphatase Total Creatine Kinase Troponin T C-Reactive Protein Total Protein Albumin Triglycerides HDL Cholesterol Miscellaneous Test Crossmatch See Detail 09/12/17 09/12/17 09/12/17 11:18 15:22 17:18 WBC RBC Hgb 8.5 L Hct 25.4 L MCV MCH RDW Plt Count Lymph % (Auto) [place] % (Auto) [place] # Seg Neutrophils % Seg Neuts % (Manual) Lymphocytes % (Manual) Monocytes % (Manual) Nucleated RBC % Seg Neutrophils # Seg Neutrophils # Man Lymphocytes # (Manual) Monocytes # (Manual) Eosinophils # (Manual) Basophils # (Manual) PT INR POC ABG pH ABG pH POC ABG pCO2 POC ABG pO2 ABG pO2 ABG O2 Saturation ABG Base Excess ABG Hemoglobin Oxyhemoglobin Sodium Potassium Chloride Carbon Dioxide BUN Creatinine Glucose POC Glucose 262 H 193 H Calcium Phosphorus Magnesium Iron TIBC Ferritin Total Bilirubin AST ALT Alkaline Phosphatase Total Creatine Kinase Troponin T C-Reactive Protein Total Protein Albumin Triglycerides HDL Cholesterol Miscellaneous Test Crossmatch 09/13/17 09/13/17 09/13/17 00:05 06:25 11:36 WBC RBC Hgb Hct MCV MCH RDW Plt Count Lymph % (Auto) [place] % (Auto) [place] # Seg Neutrophils % Seg Neuts % (Manual) Lymphocytes % (Manual) Monocytes % (Manual) Nucleated RBC % Seg Neutrophils # Seg Neutrophils # Man Lymphocytes # (Manual) Monocytes # (Manual) Eosinophils # (Manual) Basophils # (Manual) PT INR POC ABG pH 7.347 L ABG pH POC ABG pCO2 34.3 L POC ABG pO2 134 H ABG pO2 ABG O2 Saturation ABG Base Excess ABG Hemoglobin Oxyhemoglobin Sodium Potassium Chloride Carbon Dioxide BUN Creatinine Glucose POC Glucose 235 H 286 H Calcium Phosphorus Magnesium Iron TIBC Ferritin Total Bilirubin AST ALT Alkaline Phosphatase Total Creatine Kinase Troponin T C-Reactive Protein Total Protein Albumin Triglycerides HDL Cholesterol Miscellaneous Test Crossmatch 09/13/17 09/13/17 09/13/17 11:56 17:25 23:18 WBC RBC Hgb Hct MCV MCH RDW Plt Count Lymph % (Auto) [place] % (Auto) [place] # Seg Neutrophils % Seg Neuts % (Manual) Lymphocytes % (Manual) Monocytes % (Manual) Nucleated RBC % Seg Neutrophils # Seg Neutrophils # Man Lymphocytes # (Manual) Monocytes # (Manual) Eosinophils # (Manual) Basophils # (Manual) PT INR POC ABG pH ABG pH POC ABG pCO2 POC ABG pO2 ABG pO2 ABG O2 Saturation ABG Base Excess ABG Hemoglobin Oxyhemoglobin Sodium Potassium Chloride Carbon Dioxide BUN Creatinine Glucose POC Glucose 318 H 278 H 230 H Calcium Phosphorus Magnesium Iron TIBC Ferritin Total Bilirubin AST ALT Alkaline Phosphatase Total Creatine Kinase Troponin T C-Reactive Protein Total Protein Albumin Triglycerides HDL Cholesterol Miscellaneous Test Crossmatch 09/13/17 09/13/17 09/13/17 Unknown Unknown Unknown WBC 15.6 H RBC 2.72 L Hgb 8.1 L Hct 23.9 L MCV MCH RDW 19.5 H Plt Count 137 L Lymph % (Auto) [place] % (Auto) [place] # Seg Neutrophils % Seg Neuts % (Manual) 73.0 H Lymphocytes % (Manual) 3.0 L Monocytes % (Manual) 19.0 H Nucleated RBC % 2.0 H Seg Neutrophils # Seg Neutrophils # Man 11.4 H Lymphocytes # (Manual) 0.5 L Monocytes # (Manual) 3.0 H Eosinophils # (Manual) Basophils # (Manual) PT INR POC ABG pH ABG pH POC ABG pCO2 POC ABG pO2 ABG pO2 ABG O2 Saturation ABG Base Excess ABG Hemoglobin Oxyhemoglobin Sodium Potassium Chloride Carbon Dioxide 19 L BUN 103 H Creatinine 2.6 H Glucose 173 H POC Glucose Calcium Phosphorus Magnesium Iron TIBC Ferritin Total Bilirubin AST ALT Alkaline Phosphatase Total Creatine Kinase Troponin T C-Reactive Protein Total Protein Albumin < 0.2 L Triglycerides HDL Cholesterol Miscellaneous Test Crossmatch 09/14/17 09/14/17 09/14/17 03:15 03:15 05:16 WBC 12.5 H RBC 2.55 L Hgb 7.6 L Hct 22.5 L MCV MCH RDW 19.8 H Plt Count 139 L Lymph % (Auto) [place] % (Auto) [place] # Seg Neutrophils % Seg Neuts % (Manual) Lymphocytes % (Manual) Monocytes % (Manual) Nucleated RBC % Seg Neutrophils # Seg Neutrophils # Man Lymphocytes # (Manual) Monocytes # (Manual) Eosinophils # (Manual) Basophils # (Manual) PT INR POC ABG pH ABG pH POC ABG pCO2 POC ABG pO2 ABG pO2 ABG O2 Saturation ABG Base Excess ABG Hemoglobin Oxyhemoglobin Sodium Potassium Chloride Carbon Dioxide BUN 75 H Creatinine 2.1 H Glucose 217 H POC Glucose 283 H Calcium Phosphorus 2.20 L D Magnesium Iron TIBC Ferritin Total Bilirubin AST ALT Alkaline Phosphatase Total Creatine Kinase Troponin T C-Reactive Protein Total Protein Albumin Triglycerides HDL Cholesterol Miscellaneous Test Crossmatch 09/14/17 09/14/17 09/15/17 12:11 17:47 00:03 WBC RBC Hgb Hct MCV MCH RDW Plt Count Lymph % (Auto) [place] % (Auto) [place] # Seg Neutrophils % Seg Neuts % (Manual) Lymphocytes % (Manual) Monocytes % (Manual) Nucleated RBC % Seg Neutrophils # Seg Neutrophils # Man Lymphocytes # (Manual) Monocytes # (Manual) Eosinophils # (Manual) Basophils # (Manual) PT INR POC ABG pH ABG pH POC ABG pCO2 POC ABG pO2 ABG pO2 ABG O2 Saturation ABG Base Excess ABG Hemoglobin Oxyhemoglobin Sodium Potassium Chloride Carbon Dioxide BUN Creatinine Glucose POC Glucose 251 H 289 H 229 H Calcium Phosphorus Magnesium Iron TIBC Ferritin Total Bilirubin AST ALT Alkaline Phosphatase Total Creatine Kinase Troponin T C-Reactive Protein Total Protein Albumin Triglycerides HDL Cholesterol Miscellaneous Test Crossmatch 09/15/17 09/15/17 09/15/17 05:00 05:00 05:30 WBC 11.7 H RBC 2.50 L Hgb 7.4 L Hct 22.7 L MCV MCH RDW 20.5 H Plt Count Lymph % (Auto) [place] % (Auto) [place] # Seg Neutrophils % Seg Neuts % (Manual) Lymphocytes % (Manual) 11.0 L Monocytes % (Manual) 11.0 H Nucleated RBC % Seg Neutrophils # Seg Neutrophils # Man Lymphocytes # (Manual) Monocytes # (Manual) 1.3 H Eosinophils # (Manual) Basophils # (Manual) PT INR POC ABG pH ABG pH POC ABG pCO2 POC ABG pO2 ABG pO2 ABG O2 Saturation ABG Base Excess ABG Hemoglobin Oxyhemoglobin Sodium Potassium Chloride 97.0 L Carbon Dioxide 21 L BUN 94 H Creatinine 2.4 H Glucose 194 H POC Glucose 225 H Calcium Phosphorus Magnesium Iron TIBC Ferritin Total Bilirubin AST ALT Alkaline Phosphatase Total Creatine Kinase Troponin T C-Reactive Protein Total Protein Albumin Triglycerides HDL Cholesterol Miscellaneous Test Crossmatch 09/15/17 09/15/17 09/15/17 07:48 11:38 12:45 WBC RBC 1.93 L Hgb 5.7 L* Hct 17.1 L* MCV MCH RDW 20.2 H Plt Count 125 L Lymph % (Auto) [place] % (Auto) [place] # Seg Neutrophils % Seg Neuts % (Manual) 79.0 H Lymphocytes % (Manual) 8.0 L Monocytes % (Manual) Nucleated RBC % Seg Neutrophils # Seg Neutrophils # Man Lymphocytes # (Manual) 0.8 L Monocytes # (Manual) Eosinophils # (Manual) Basophils # (Manual) PT INR POC ABG pH ABG pH POC ABG pCO2 POC ABG pO2 ABG pO2 ABG O2 Saturation ABG Base Excess ABG Hemoglobin Oxyhemoglobin Sodium Potassium Chloride Carbon Dioxide BUN Creatinine Glucose POC Glucose 245 H 253 H Calcium Phosphorus Magnesium Iron TIBC Ferritin Total Bilirubin AST ALT Alkaline Phosphatase Total Creatine Kinase Troponin T C-Reactive Protein Total Protein Albumin Triglycerides HDL Cholesterol Miscellaneous Test Crossmatch 09/15/17 09/15/17 09/15/17 12:45 12:45 22:25 WBC 19.6 H RBC 3.32 L Hgb 10.0 L D Hct 29.3 L D MCV MCH RDW 17.0 H Plt Count 123 L Lymph % (Auto) [place] % (Auto) [place] # Seg Neutrophils % Seg Neuts % (Manual) Lymphocytes % (Manual) 12.0 L Monocytes % (Manual) Nucleated RBC % 5.0 H Seg Neutrophils # Seg Neutrophils # Man 11.0 H Lymphocytes # (Manual) Monocytes # (Manual) 1.2 H Eosinophils # (Manual) Basophils # (Manual) PT 15.4 H INR 1.16 H POC ABG pH ABG pH POC ABG pCO2 POC ABG pO2 ABG pO2 ABG O2 Saturation ABG Base Excess ABG Hemoglobin Oxyhemoglobin Sodium Potassium Chloride Carbon Dioxide BUN Creatinine Glucose POC Glucose Calcium Phosphorus Magnesium Iron TIBC Ferritin Total Bilirubin AST ALT Alkaline Phosphatase Total Creatine Kinase Troponin T C-Reactive Protein Total Protein Albumin Triglycerides HDL Cholesterol Miscellaneous Test Crossmatch See Detail 09/15/17 09/15/17 09/16/17 22:25 23:38 01:26 WBC RBC Hgb Hct MCV MCH RDW Plt Count Lymph % (Auto) [place] % (Auto) [place] # Seg Neutrophils % Seg Neuts % (Manual) Lymphocytes % (Manual) Monocytes % (Manual) Nucleated RBC % Seg Neutrophils # Seg Neutrophils # Man Lymphocytes # (Manual) Monocytes # (Manual) Eosinophils # (Manual) Basophils # (Manual) PT INR POC ABG pH ABG pH POC ABG pCO2 POC ABG pO2 ABG pO2 ABG O2 Saturation ABG Base Excess ABG Hemoglobin Oxyhemoglobin Sodium Potassium Chloride Carbon Dioxide 17 L BUN 100 H Creatinine 2.6 H Glucose POC Glucose 58 L 132 H Calcium 8.3 L Phosphorus Magnesium 1.60 L Iron TIBC Ferritin Total Bilirubin 2.80 H AST 118 H ALT Alkaline Phosphatase 316 H Total Creatine Kinase Troponin T C-Reactive Protein Total Protein 4.0 L Albumin 1.8 L Triglycerides HDL Cholesterol Miscellaneous Test Crossmatch 09/16/17 09/16/17 09/16/17 05:30 05:30 05:54 WBC 24.6 H RBC 3.22 L Hgb 9.8 L Hct 28.6 L MCV MCH RDW 17.4 H Plt Count 127 L Lymph % (Auto) [place] % (Auto) [place] # Seg Neutrophils % Seg Neuts % (Manual) Lymphocytes % (Manual) Monocytes % (Manual) Nucleated RBC % Seg Neutrophils # Seg Neutrophils # Man Lymphocytes # (Manual) Monocytes # (Manual) Eosinophils # (Manual) Basophils # (Manual) PT INR POC ABG pH ABG pH POC ABG pCO2 POC ABG pO2 ABG pO2 ABG O2 Saturation ABG Base Excess ABG Hemoglobin Oxyhemoglobin Sodium Potassium Chloride Carbon Dioxide 18 L BUN 109 H Creatinine 2.5 H Glucose 140 H POC Glucose 154 H Calcium Phosphorus 4.80 H Magnesium Iron TIBC Ferritin Total Bilirubin 2.40 H AST 90 H ALT Alkaline Phosphatase 298 H Total Creatine Kinase 20 L Troponin T C-Reactive Protein Total Protein 4.1 L Albumin 1.8 L Triglycerides HDL Cholesterol Miscellaneous Test Crossmatch 09/16/17 09/16/17 09/16/17 11:49 17:04 23:18 WBC RBC Hgb Hct MCV MCH RDW Plt Count Lymph % (Auto) [place] % (Auto) [place] # Seg Neutrophils % Seg Neuts % (Manual) Lymphocytes % (Manual) Monocytes % (Manual) Nucleated RBC % Seg Neutrophils # Seg Neutrophils # Man Lymphocytes # (Manual) Monocytes # (Manual) Eosinophils # (Manual) Basophils # (Manual) PT INR POC ABG pH ABG pH POC ABG pCO2 POC ABG pO2 ABG pO2 ABG O2 Saturation ABG Base Excess ABG Hemoglobin Oxyhemoglobin Sodium Potassium Chloride Carbon Dioxide BUN Creatinine Glucose POC Glucose 167 H 156 H 162 H Calcium Phosphorus Magnesium Iron TIBC Ferritin Total Bilirubin AST ALT Alkaline Phosphatase Total Creatine Kinase Troponin T C-Reactive Protein Total Protein Albumin Triglycerides HDL Cholesterol Miscellaneous Test Crossmatch 09/17/17 09/17/17 09/17/17 05:27 06:10 06:10 WBC 34.6 H RBC 2.75 L Hgb 8.4 L Hct 24.8 L MCV MCH RDW 18.3 H Plt Count Lymph % (Auto) [place] % (Auto) [place] # Seg Neutrophils % Seg Neuts % (Manual) 77.0 H Lymphocytes % (Manual) 5.0 L Monocytes % (Manual) Nucleated RBC % 2.0 H Seg Neutrophils # Seg Neutrophils # Man 26.6 H Lymphocytes # (Manual) Monocytes # (Manual) 2.4 H Eosinophils # (Manual) Basophils # (Manual) PT INR POC ABG pH ABG pH POC ABG pCO2 POC ABG pO2 ABG pO2 ABG O2 Saturation ABG Base Excess ABG Hemoglobin Oxyhemoglobin Sodium Potassium Chloride Carbon Dioxide BUN 82 H Creatinine 2.1 H Glucose 252 H POC Glucose 243 H Calcium 8.3 L Phosphorus Magnesium Iron TIBC Ferritin Total Bilirubin AST ALT Alkaline Phosphatase Total Creatine Kinase Troponin T C-Reactive Protein Total Protein Albumin Triglycerides HDL Cholesterol Miscellaneous Test Crossmatch 09/17/17 09/17/17 09/18/17 11:42 17:12 00:08 WBC RBC Hgb Hct MCV MCH RDW Plt Count Lymph % (Auto) [place] % (Auto) [place] # Seg Neutrophils % Seg Neuts % (Manual) Lymphocytes % (Manual) Monocytes % (Manual) Nucleated RBC % Seg Neutrophils # Seg Neutrophils # Man Lymphocytes # (Manual) Monocytes # (Manual) Eosinophils # (Manual) Basophils # (Manual) PT INR POC ABG pH ABG pH POC ABG pCO2 POC ABG pO2 ABG pO2 ABG O2 Saturation ABG Base Excess ABG Hemoglobin Oxyhemoglobin Sodium Potassium Chloride Carbon Dioxide BUN Creatinine Glucose POC Glucose 232 H 309 H 275 H Calcium Phosphorus Magnesium Iron TIBC Ferritin Total Bilirubin AST ALT Alkaline Phosphatase Total Creatine Kinase Troponin T C-Reactive Protein Total Protein Albumin Triglycerides HDL Cholesterol Miscellaneous Test Crossmatch 09/18/17 09/18/17 09/18/17 05:10 05:10 05:23 WBC 24.4 H RBC 2.57 L Hgb 7.8 L Hct 23.2 L MCV MCH RDW 19.5 H Plt Count Lymph % (Auto) [place] % (Auto) [place] # Seg Neutrophils % Seg Neuts % (Manual) 78.0 H Lymphocytes % (Manual) 6.0 L Monocytes % (Manual) Nucleated RBC % 2.0 H Seg Neutrophils # Seg Neutrophils # Man 19.0 H Lymphocytes # (Manual) Monocytes # (Manual) Eosinophils # (Manual) Basophils # (Manual) PT INR POC ABG pH ABG pH POC ABG pCO2 POC ABG pO2 ABG pO2 ABG O2 Saturation ABG Base Excess ABG Hemoglobin Oxyhemoglobin Sodium Potassium Chloride Carbon Dioxide BUN 103 H Creatinine 2.8 H Glucose 173 H POC Glucose 224 H Calcium Phosphorus Magnesium Iron TIBC Ferritin Total Bilirubin AST ALT Alkaline Phosphatase Total Creatine Kinase Troponin T C-Reactive Protein Total Protein Albumin Triglycerides HDL Cholesterol Miscellaneous Test Crossmatch 09/18/17 09/18/17 09/18/17 13:59 18:35 23:19 WBC RBC Hgb Hct MCV MCH RDW Plt Count Lymph % (Auto) [place] % (Auto) [place] # Seg Neutrophils % Seg Neuts % (Manual) Lymphocytes % (Manual) Monocytes % (Manual) Nucleated RBC % Seg Neutrophils # Seg Neutrophils # Man Lymphocytes # (Manual) Monocytes # (Manual) Eosinophils # (Manual) Basophils # (Manual) PT INR POC ABG pH ABG pH POC ABG pCO2 POC ABG pO2 ABG pO2 ABG O2 Saturation ABG Base Excess ABG Hemoglobin Oxyhemoglobin Sodium Potassium Chloride Carbon Dioxide BUN Creatinine Glucose POC Glucose 268 H 220 H 188 H Calcium Phosphorus Magnesium Iron TIBC Ferritin Total Bilirubin AST ALT Alkaline Phosphatase Total Creatine Kinase Troponin T C-Reactive Protein Total Protein Albumin Triglycerides HDL Cholesterol Miscellaneous Test Crossmatch 09/19/17 09/19/17 09/19/17 05:45 06:00 11:41 WBC 17.6 H RBC 2.57 L Hgb 7.9 L Hct 23.2 L MCV MCH RDW 19.0 H Plt Count Lymph % (Auto) [place] % (Auto) [place] # Seg Neutrophils % Seg Neuts % (Manual) Lymphocytes % (Manual) 9.0 L Monocytes % (Manual) Nucleated RBC % Seg Neutrophils # Seg Neutrophils # Man 11.4 H Lymphocytes # (Manual) Monocytes # (Manual) 0.9 H Eosinophils # (Manual) Basophils # (Manual) PT INR POC ABG pH ABG pH POC ABG pCO2 POC ABG pO2 ABG pO2 ABG O2 Saturation ABG Base Excess ABG Hemoglobin Oxyhemoglobin Sodium Potassium Chloride Carbon Dioxide BUN Creatinine Glucose POC Glucose 178 H 126 H Calcium Phosphorus Magnesium Iron TIBC Ferritin Total Bilirubin AST ALT Alkaline Phosphatase Total Creatine Kinase Troponin T C-Reactive Protein Total Protein Albumin Triglycerides HDL Cholesterol Miscellaneous Test Crossmatch 09/19/17 09/19/17 09/20/17 17:08 23:46 04:46 WBC RBC Hgb Hct MCV MCH RDW Plt Count Lymph % (Auto) [place] % (Auto) [place] # Seg Neutrophils % Seg Neuts % (Manual) Lymphocytes % (Manual) Monocytes % (Manual) Nucleated RBC % Seg Neutrophils # Seg Neutrophils # Man Lymphocytes # (Manual) Monocytes # (Manual) Eosinophils # (Manual) Basophils # (Manual) PT INR POC ABG pH ABG pH POC ABG pCO2 POC ABG pO2 ABG pO2 ABG O2 Saturation ABG Base Excess ABG Hemoglobin Oxyhemoglobin Sodium Potassium 5.2 H D Chloride 97.4 L Carbon Dioxide 20 L BUN 98 H Creatinine 2.4 H Glucose 187 H POC Glucose 263 H 161 H Calcium Phosphorus Magnesium Iron TIBC Ferritin Total Bilirubin AST ALT Alkaline Phosphatase Total Creatine Kinase Troponin T C-Reactive Protein Total Protein Albumin Triglycerides HDL Cholesterol Miscellaneous Test Crossmatch 09/20/17 09/20/17 09/20/17 05:38 11:36 11:41 WBC 24.5 H RBC 2.84 L Hgb 8.2 L Hct 26.2 L MCV MCH RDW 20.0 H Plt Count 470 H Lymph % (Auto) [place] % (Auto) [place] # Seg Neutrophils % Seg Neuts % (Manual) Lymphocytes % (Manual) Monocytes % (Manual) Nucleated RBC % Seg Neutrophils # Seg Neutrophils # Man Lymphocytes # (Manual) Monocytes # (Manual) Eosinophils # (Manual) Basophils # (Manual) PT INR POC ABG pH ABG pH POC ABG pCO2 POC ABG pO2 ABG pO2 ABG O2 Saturation ABG Base Excess ABG Hemoglobin Oxyhemoglobin Sodium Potassium Chloride Carbon Dioxide BUN Creatinine Glucose POC Glucose 215 H 220 H Calcium Phosphorus Magnesium Iron TIBC Ferritin Total Bilirubin AST ALT Alkaline Phosphatase Total Creatine Kinase Troponin T C-Reactive Protein Total Protein Albumin Triglycerides HDL Cholesterol Miscellaneous Test Crossmatch 09/20/17 09/21/17 09/21/17 17:45 00:51 04:00 WBC RBC Hgb Hct MCV MCH RDW Plt Count Lymph % (Auto) [place] % (Auto) [place] # Seg Neutrophils % Seg Neuts % (Manual) Lymphocytes % (Manual) Monocytes % (Manual) Nucleated RBC % Seg Neutrophils # Seg Neutrophils # Man Lymphocytes # (Manual) Monocytes # (Manual) Eosinophils # (Manual) Basophils # (Manual) PT INR POC ABG pH ABG pH POC ABG pCO2 POC ABG pO2 ABG pO2 ABG O2 Saturation ABG Base Excess ABG Hemoglobin Oxyhemoglobin Sodium Potassium 3.2 L D Chloride 96.4 L Carbon Dioxide BUN 63 H Creatinine 1.8 H Glucose 204 H POC Glucose 122 H 137 H Calcium 8.3 L Phosphorus 2.10 L D Magnesium 1.50 L Iron TIBC Ferritin Total Bilirubin AST ALT Alkaline Phosphatase Total Creatine Kinase Troponin T C-Reactive Protein Total Protein Albumin Triglycerides HDL Cholesterol Miscellaneous Test Crossmatch 09/21/17 09/21/17 09/21/17 05:45 08:30 11:50 WBC 27.5 H RBC 2.52 L Hgb 7.7 L Hct 22.8 L MCV MCH RDW 19.2 H Plt Count 457 H Lymph % (Auto) [place] % (Auto) [place] # Seg Neutrophils % Seg Neuts % (Manual) Lymphocytes % (Manual) Monocytes % (Manual) Nucleated RBC % Seg Neutrophils # Seg Neutrophils # Man Lymphocytes # (Manual) Monocytes # (Manual) Eosinophils # (Manual) Basophils # (Manual) PT INR POC ABG pH ABG pH POC ABG pCO2 POC ABG pO2 ABG pO2 ABG O2 Saturation ABG Base Excess ABG Hemoglobin Oxyhemoglobin Sodium Potassium Chloride Carbon Dioxide BUN Creatinine Glucose POC Glucose 243 H Calcium Phosphorus Magnesium Iron TIBC Ferritin Total Bilirubin AST ALT Alkaline Phosphatase Total Creatine Kinase Troponin T C-Reactive Protein Total Protein Albumin Triglycerides HDL Cholesterol Miscellaneous Test Crossmatch See Detail 09/21/17 09/21/17 09/22/17 13:03 16:39 00:09 WBC RBC Hgb Hct MCV MCH RDW Plt Count Lymph % (Auto) [place] % (Auto) [place] # Seg Neutrophils % Seg Neuts % (Manual) Lymphocytes % (Manual) Monocytes % (Manual) Nucleated RBC % Seg Neutrophils # Seg Neutrophils # Man Lymphocytes # (Manual) Monocytes # (Manual) Eosinophils # (Manual) Basophils # (Manual) PT INR POC ABG pH ABG pH POC ABG pCO2 POC ABG pO2 ABG pO2 ABG O2 Saturation ABG Base Excess ABG Hemoglobin Oxyhemoglobin Sodium Potassium Chloride Carbon Dioxide BUN Creatinine Glucose POC Glucose 271 H 160 H 191 H Calcium Phosphorus Magnesium Iron TIBC Ferritin Total Bilirubin AST ALT Alkaline Phosphatase Total Creatine Kinase Troponin T C-Reactive Protein Total Protein Albumin Triglycerides HDL Cholesterol Miscellaneous Test Crossmatch 09/22/17 09/22/17 09/22/17 03:37 05:40 07:35 WBC 29.7 H RBC 2.71 L Hgb 8.1 L Hct 24.1 L MCV MCH RDW 19.6 H Plt Count 491 H Lymph % (Auto) [place] % (Auto) [place] # Seg Neutrophils % Seg Neuts % (Manual) 70.5 H Lymphocytes % (Manual) 12.5 L Monocytes % (Manual) 10.0 H Nucleated RBC % 2.0 H Seg Neutrophils # Seg Neutrophils # Man 20.9 H Lymphocytes # (Manual) Monocytes # (Manual) 3.0 H Eosinophils # (Manual) Basophils # (Manual) PT INR POC ABG pH ABG pH POC ABG pCO2 POC ABG pO2 ABG pO2 ABG O2 Saturation ABG Base Excess ABG Hemoglobin Oxyhemoglobin Sodium Potassium 3.0 L Chloride 95.9 L Carbon Dioxide BUN 74 H Creatinine 2.1 H Glucose 126 H POC Glucose 150 H Calcium Phosphorus 2.10 L Magnesium 1.40 L Iron TIBC Ferritin Total Bilirubin AST ALT Alkaline Phosphatase 311 H Total Creatine Kinase Troponin T C-Reactive Protein Total Protein 4.4 L Albumin 2.0 L Triglycerides HDL Cholesterol Miscellaneous Test Crossmatch 09/22/17 09/23/17 09/23/17 12:20 05:02 05:02 WBC 37.5 H RBC 2.54 L Hgb 7.3 L Hct 22.9 L MCV MCH RDW 19.4 H Plt Count 471 H Lymph % (Auto) [place] % (Auto) [place] # Seg Neutrophils % Seg Neuts % (Manual) Lymphocytes % (Manual) 8.0 L Monocytes % (Manual) Nucleated RBC % 1.0 H Seg Neutrophils # Seg Neutrophils # Man 15.0 H Lymphocytes # (Manual) Monocytes # (Manual) 1.9 H Eosinophils # (Manual) Basophils # (Manual) PT INR POC ABG pH ABG pH POC ABG pCO2 POC ABG pO2 ABG pO2 ABG O2 Saturation ABG Base Excess ABG Hemoglobin Oxyhemoglobin Sodium 136 L Potassium 3.0 L Chloride 93.8 L Carbon Dioxide BUN 99 H Creatinine 2.7 H Glucose POC Glucose 106 H Calcium 8.2 L Phosphorus 2.40 L Magnesium Iron TIBC Ferritin Total Bilirubin AST ALT Alkaline Phosphatase Total Creatine Kinase Troponin T C-Reactive Protein Total Protein Albumin Triglycerides HDL Cholesterol Miscellaneous Test Crossmatch 09/23/17 09/23/17 09/23/17 05:39 11:21 18:19 WBC RBC Hgb Hct MCV MCH RDW Plt Count Lymph % (Auto) [place] % (Auto) [place] # Seg Neutrophils % Seg Neuts % (Manual) Lymphocytes % (Manual) Monocytes % (Manual) Nucleated RBC % Seg Neutrophils # Seg Neutrophils # Man Lymphocytes # (Manual) Monocytes # (Manual) Eosinophils # (Manual) Basophils # (Manual) PT INR POC ABG pH ABG pH POC ABG pCO2 POC ABG pO2 ABG pO2 ABG O2 Saturation ABG Base Excess ABG Hemoglobin Oxyhemoglobin Sodium Potassium Chloride Carbon Dioxide BUN Creatinine Glucose POC Glucose 118 H 130 H 189 H Calcium Phosphorus Magnesium Iron TIBC Ferritin Total Bilirubin AST ALT Alkaline Phosphatase Total Creatine Kinase Troponin T C-Reactive Protein Total Protein Albumin Triglycerides HDL Cholesterol Miscellaneous Test Crossmatch 09/23/17 09/24/17 09/24/17 23:55 04:00 04:00 WBC 37.8 H RBC 2.76 L Hgb 8.1 L Hct 24.8 L MCV MCH RDW 19.8 H Plt Count 539 H Lymph % (Auto) [place] % (Auto) [place] # Seg Neutrophils % Seg Neuts % (Manual) Lymphocytes % (Manual) 4.0 L Monocytes % (Manual) Nucleated RBC % 6.0 H Seg Neutrophils # Seg Neutrophils # Man 19.3 H Lymphocytes # (Manual) Monocytes # (Manual) 1.5 H Eosinophils # (Manual) Basophils # (Manual) 0.4 H PT INR POC ABG pH ABG pH POC ABG pCO2 POC ABG pO2 ABG pO2 ABG O2 Saturation ABG Base Excess ABG Hemoglobin Oxyhemoglobin Sodium Potassium 3.5 L Chloride 95.2 L Carbon Dioxide BUN 67 H Creatinine 1.9 H Glucose 140 H POC Glucose 120 H Calcium 8.2 L Phosphorus 2.00 L Magnesium Iron TIBC Ferritin Total Bilirubin AST ALT Alkaline Phosphatase Total Creatine Kinase Troponin T C-Reactive Protein Total Protein Albumin Triglycerides HDL Cholesterol Miscellaneous Test Crossmatch 09/24/17 09/24/17 09/24/17 04:00 05:33 12:16 WBC RBC Hgb Hct MCV MCH RDW Plt Count Lymph % (Auto) [place] % (Auto) [place] # Seg Neutrophils % Seg Neuts % (Manual) Lymphocytes % (Manual) Monocytes % (Manual) Nucleated RBC % Seg Neutrophils # Seg Neutrophils # Man Lymphocytes # (Manual) Monocytes # (Manual) Eosinophils # (Manual) Basophils # (Manual) PT INR POC ABG pH ABG pH POC ABG pCO2 POC ABG pO2 ABG pO2 ABG O2 Saturation ABG Base Excess ABG Hemoglobin Oxyhemoglobin Sodium Potassium Chloride Carbon Dioxide BUN Creatinine Glucose POC Glucose 178 H 262 H Calcium Phosphorus Magnesium Iron TIBC Ferritin Total Bilirubin AST ALT Alkaline Phosphatase Total Creatine Kinase Troponin T C-Reactive Protein Total Protein Albumin Triglycerides HDL Cholesterol Miscellaneous Test Crossmatch See Detail 09/24/17 09/24/17 09/25/17 17:51 23:33 06:03 WBC RBC Hgb Hct MCV MCH RDW Plt Count Lymph % (Auto) [place] % (Auto) [place] # Seg Neutrophils % Seg Neuts % (Manual) Lymphocytes % (Manual) Monocytes % (Manual) Nucleated RBC % Seg Neutrophils # Seg Neutrophils # Man Lymphocytes # (Manual) Monocytes # (Manual) Eosinophils # (Manual) Basophils # (Manual) PT INR POC ABG pH ABG pH POC ABG pCO2 POC ABG pO2 ABG pO2 ABG O2 Saturation ABG Base Excess ABG Hemoglobin Oxyhemoglobin Sodium Potassium Chloride Carbon Dioxide BUN Creatinine Glucose POC Glucose 166 H 142 H 173 H Calcium Phosphorus Magnesium Iron TIBC Ferritin Total Bilirubin AST ALT Alkaline Phosphatase Total Creatine Kinase Troponin T C-Reactive Protein Total Protein Albumin Triglycerides HDL Cholesterol Miscellaneous Test Crossmatch 09/25/17 09/25/17 09/25/17 07:49 07:49 11:36 WBC 59.6 H* RBC 2.63 L Hgb 7.7 L Hct 26.0 L MCV 99 H MCH RDW 21.8 H Plt Count Lymph % (Auto) [place] % (Auto) [place] # Seg Neutrophils % Seg Neuts % (Manual) Lymphocytes % (Manual) 2.0 L Monocytes % (Manual) Nucleated RBC % 8.0 H Seg Neutrophils # Seg Neutrophils # Man 41.7 H Lymphocytes # (Manual) Monocytes # (Manual) 1.2 H Eosinophils # (Manual) Basophils # (Manual) PT INR POC ABG pH ABG pH POC ABG pCO2 POC ABG pO2 ABG pO2 ABG O2 Saturation ABG Base Excess ABG Hemoglobin Oxyhemoglobin Sodium Potassium 5.3 H D Chloride 97.7 L Carbon Dioxide 19 L BUN 90 H Creatinine 2.5 H Glucose 181 H POC Glucose 308 H Calcium 8.0 L Phosphorus Magnesium Iron TIBC Ferritin Total Bilirubin AST ALT Alkaline Phosphatase Total Creatine Kinase Troponin T C-Reactive Protein Total Protein Albumin Triglycerides HDL Cholesterol Miscellaneous Test Crossmatch 09/25/17 09/25/17 09/26/17 16:11 23:38 05:25 WBC 61.9 H* RBC 2.30 L Hgb 7.0 L Hct 21.4 L MCV MCH RDW 21.3 H Plt Count Lymph % (Auto) [place] % (Auto) [place] # Seg Neutrophils % Seg Neuts % (Manual) Lymphocytes % (Manual) 1.0 L Monocytes % (Manual) Nucleated RBC % 7.0 H Seg Neutrophils # Seg Neutrophils # Man 37.1 H Lymphocytes # (Manual) 0.6 L Monocytes # (Manual) 1.9 H Eosinophils # (Manual) Basophils # (Manual) PT INR POC ABG pH ABG pH POC ABG pCO2 POC ABG pO2 ABG pO2 ABG O2 Saturation ABG Base Excess ABG Hemoglobin Oxyhemoglobin Sodium Potassium Chloride Carbon Dioxide BUN Creatinine Glucose POC Glucose 249 H 263 H Calcium Phosphorus Magnesium Iron TIBC Ferritin Total Bilirubin AST ALT Alkaline Phosphatase Total Creatine Kinase Troponin T C-Reactive Protein Total Protein Albumin Triglycerides HDL Cholesterol Miscellaneous Test Crossmatch 09/26/17 09/26/17 09/26/17 05:25 05:32 11:33 WBC RBC Hgb Hct MCV MCH RDW Plt Count Lymph % (Auto) [place] % (Auto) [place] # Seg Neutrophils % Seg Neuts % (Manual) Lymphocytes % (Manual) Monocytes % (Manual) Nucleated RBC % Seg Neutrophils # Seg Neutrophils # Man Lymphocytes # (Manual) Monocytes # (Manual) Eosinophils # (Manual) Basophils # (Manual) PT INR POC ABG pH ABG pH POC ABG pCO2 POC ABG pO2 ABG pO2 ABG O2 Saturation ABG Base Excess ABG Hemoglobin Oxyhemoglobin Sodium Potassium Chloride Carbon Dioxide 21 L BUN 81 H Creatinine 2.3 H Glucose 178 H POC Glucose 225 H 246 H Calcium 8.1 L Phosphorus Magnesium Iron TIBC Ferritin Total Bilirubin AST ALT Alkaline Phosphatase Total Creatine Kinase Troponin T C-Reactive Protein Total Protein Albumin Triglycerides HDL Cholesterol Miscellaneous Test Crossmatch 09/26/17 09/27/17 09/27/17 17:43 00:11 04:00 WBC 63.0 H* RBC 2.23 L Hgb 6.3 L Hct 20.6 L MCV MCH RDW 20.6 H Plt Count Lymph % (Auto) [place] % (Auto) [place] # Seg Neutrophils % Seg Neuts % (Manual) Lymphocytes % (Manual) 3.0 L Monocytes % (Manual) Nucleated RBC % 6.0 H Seg Neutrophils # Seg Neutrophils # Man 40.3 H Lymphocytes # (Manual) Monocytes # (Manual) 4.4 H Eosinophils # (Manual) Basophils # (Manual) PT INR POC ABG pH ABG pH POC ABG pCO2 POC ABG pO2 ABG pO2 ABG O2 Saturation ABG Base Excess ABG Hemoglobin Oxyhemoglobin Sodium Potassium Chloride Carbon Dioxide BUN Creatinine Glucose POC Glucose 180 H 194 H Calcium Phosphorus Magnesium Iron TIBC Ferritin Total Bilirubin AST ALT Alkaline Phosphatase Total Creatine Kinase Troponin T C-Reactive Protein Total Protein Albumin Triglycerides HDL Cholesterol Miscellaneous Test Crossmatch 09/27/17 09/27/17 09/27/17 04:00 04:00 05:11 WBC RBC Hgb Hct MCV MCH RDW Plt Count Lymph % (Auto) [place] % (Auto) [place] # Seg Neutrophils % Seg Neuts % (Manual) Lymphocytes % (Manual) Monocytes % (Manual) Nucleated RBC % Seg Neutrophils # Seg Neutrophils # Man Lymphocytes # (Manual) Monocytes # (Manual) Eosinophils # (Manual) Basophils # (Manual) PT INR POC ABG pH ABG pH POC ABG pCO2 POC ABG pO2 ABG pO2 ABG O2 Saturation ABG Base Excess ABG Hemoglobin Oxyhemoglobin Sodium Potassium Chloride Carbon Dioxide 19 L BUN 102 H Creatinine 2.8 H Glucose 141 H POC Glucose 189 H Calcium 8.1 L Phosphorus Magnesium 2.40 H Iron TIBC Ferritin Total Bilirubin AST ALT Alkaline Phosphatase Total Creatine Kinase Troponin T C-Reactive Protein Total Protein Albumin Triglycerides HDL Cholesterol Miscellaneous Test Crossmatch 09/27/17 08:58 WBC RBC Hgb Hct MCV MCH RDW Plt Count Lymph % (Auto) [place] % (Auto) [place] # Seg Neutrophils % Seg Neuts % (Manual) Lymphocytes % (Manual) Monocytes % (Manual) Nucleated RBC % Seg Neutrophils # Seg Neutrophils # Man Lymphocytes # (Manual) Monocytes # (Manual) Eosinophils # (Manual) Basophils # (Manual) PT INR POC ABG pH ABG pH POC ABG pCO2 POC ABG pO2 ABG pO2 ABG O2 Saturation ABG Base Excess ABG Hemoglobin Oxyhemoglobin Sodium Potassium Chloride Carbon Dioxide BUN Creatinine Glucose POC Glucose Calcium Phosphorus Magnesium Iron TIBC Ferritin Total Bilirubin AST ALT Alkaline Phosphatase Total Creatine Kinase Troponin T C-Reactive Protein Total Protein Albumin Triglycerides HDL Cholesterol Miscellaneous Test Crossmatch See Detail Chest x-ray: report reviewed, image reviewed
[2017-09-27] MEDS: DILAUDID IV PRN (18:54)
[2017-09-27] MEDS ORDERED: INTRALIPID 20% 250 ML IV SCH (20:00)
[2017-09-27] MEDS ORDERED: TPN ADULT 1,800 ML IV SCH (20:00)
--- NOTE | 2017-09-27 21:30 | Progress Note ---
Assessment and Plan - Patient Problems (1) Leukocytosis Current Visit: Yes Status: Acute Qualifiers: Leukocytosis type: L Plan to address problem: See notes above. make sure that PD access is clean also. see notes. Probably infection from the infected PD catheter. improving. back up again. up/down continue to monitor. it continuos to rise. still high. improved. Back up. Now improving again. still in the same range as yesterday.. worse today. 37,000 59,000 61.9 63,000. (2) Anemia Current Visit: Yes Status: Acute Qualifiers: Anemia type: A Iron deficiency anemia type: I Vitamin B12 deficiency anemia type: V Folate deficiency anemia type: F Bone marrow failure anemia type: B Hemolytic anemia type: H Other causes of anemia: O Chronic kidney disease stage: C Plan to address problem: see notes , monitor labs,. see notes above. continue to monitor labs with you. blood transfusion. S/P replacement transfusion. fair. s/p 1unit transfusion. see notes. Still at 7.4 6.9, scheduled for replacement. Fairly stable at this time. continue to monitor. If less, or equal to 7.0, will need replacement transfusion, with HD. Fair at this time. 7.7 today 7.0, needs blood with next HD. 6.3, and transfused. (3) Acute respiratory failure Current Visit: Yes Status: Acute Qualifiers: Respiratory failure complication: R Plan to address problem: follow pulm. Subjective Date of service: 09/27/17 Principal diagnosis: respiratory failure, sepsis, shock rectal bleeding Interval history: Patient seen today/examined, labs reviewed, case d/w she, and family.complaints of abdominal pain. Patient resting in bed in the ICU, post vascular procedure. labs reviewed, Reactive thrombocytosis, anemia of CD, leukocytosis from infection vs inflamatory process. Patient seen/examined, in bed in the ICU, on the vent post surgery.Labs reviewed , notes reviewed. will continue to monitor labs/patient with you. Replacement transfusion, if /when indicated. patient seen/examined, SBP75, on pressors., lethargic, on the vent, labs reviewed, wbc 39,000 Patient seen/examined, case reviewed, d/w her sister at the bed side. Patient seen/examined, labs reviewed, notes reviewed. severe septic shock from infected PD catheter The high wbc is all infection related. H?H low, and may get replacement transfusion with the next HD. Prognosis remain quite poor. Patient seen/examined, extubated, now on V Mask. labs reviewed. patient seen/examined, resting in bed, still some what lethargic . labs reviewed. Patient seen/examined, resting in bed., some difficulty with breathing./ lethargic. patient seen/examined, resting in bed, looked much better labs reviewed, and fair over all. Patient seen/examined, resting in bed, labs reviewed, case d/w her. Patient seen/examined, resting in bed on BIPAP., labs reviewed. patient seen/examined, resting in bed, on Bipap.labs reviewed, fairly stable. Patient seen today, resting in bed, labs reviewed, H/H low, and transfusion already ordered. Patient seen/examined, resting in bed, transferred back to the unit, due to resp failure. She is now on venting mask. had blood replacement done. Patient seen/examined in the ICU.labs reviewed. patient intubated this am. patient resting in bed.no new issues. Patient seen/examined in the ICU, on vent,Not readily responsive. patient seen, resting in bed, no new cbc ready.will order for today. Patient seen, resting in vent, labs reviewed.notes reviewed also. patient seen/examined, resting on vent, had HD yesterday, and today., labs reviewed. Patient seen, resting in bed, labs reviewed.fairly stable labs, except the wbc. Patient seen/examined, rtesting in bed on the vent.Labs reviewed, wbc still elevated, Hgb dropped slightly. Patient seen/examined, labs reviewed, hgb 7.3, if 7.0 or less, will replace .unless otherwise indicated. Patient seen/examined, alert but lethargic.sedation drip turned down.she is s/p 1unit PRBC replacement with HD today. Patient seen/examined, labs reviewed, hgb still not quite enough at 7.5, perhaps with the next HD,can use 1-2 units. Patient seen/examined, resting in bed, trached, labs re viewed. Patient seen/examined, resting in bed, responds to name calling, SBP99, labs reviewed, Hgb 6.9, PRBC replacement ordered by primary. Patient seen/examined, in bed/trach, NGT., alert/lethargic. Patient seen/examined, resting in bed, still lethargic, labs reviewed, and still fair.Will continue to follow you. Patient seen/examined, resting in bed, labs reviewed. HD in progress.She is now getting daily HD.Labs reviewed, and still fair. Patient seen/examined, resting in bed, less lethargic/less toxic looking. labs have improved. Patient seen/examined, labs reviewed, fair, case d/w her spouse at the bed side. Patient seen/examined, resting ok in bed, alert, NAD, HD in progress.Labs reviewed, and WBC 27,000, Hgb 7.8. Patient seen/examined, resting in bed in the ICU, NAD.labs reviewed, and fair. Patient seen/examined, resting in bed, labs reviewed, WBC back up,to37,000, and Hgb down to 7.3, transfusion will be needed ,if hgb less, or equal to 7.0 Patient seen/examined, resting in bed in the ICU, alert, lethargic, labs reviewed, and fair. She remains on 5mics of levophed., Temp 100. Patient seen/examined in the ICU, alert, Labs reviewed, WBC 59,000. Patient seen/examined, resting in bed, labs reviewed, WBC up to 61.9,000, Hgb 7.0, and may benefit from PRBC replacement of 2units with HD. Patient seen/examined, resting in bed, easily awoken.Hgb low at 6.3, replaced earlier with HD today.will need repeat labs in am. Objective - Constitutional Vitals: Vital Signs - 12hr 09/27/17 09/27/17 09/27/17 09:30 09:40 09:46 Temperature 97.0 F L Pulse Rate 98 H 95 H 97 H Respiratory 13 21 19 Rate Blood Pressure 104/32 100/38 95/40 O2 Sat by Pulse Oximetry O2 Sat by Pulse Oximetry [ Anterior Bilateral Throughout] O2 Sat by Pulse Oximetry [ Assessment] 09/27/17 09/27/17 09/27/17 09:50 10:00 10:15 Temperature Pulse Rate 95 H 100 H 91 H Respiratory 22 Rate Blood Pressure 100/38 100/38 100/35 O2 Sat by Pulse Oximetry O2 Sat by Pulse Oximetry [ Anterior Bilateral Throughout] O2 Sat by Pulse Oximetry [ Assessment] 09/27/17 09/27/17 09/27/17 10:16 10:30 10:31 Temperature Pulse Rate 89 98 H 104 H Respiratory 22 18 Rate Blood Pressure 101/39 94/37 94/37 O2 Sat by Pulse Oximetry O2 Sat by Pulse Oximetry [ Anterior Bilateral Throughout] O2 Sat by Pulse Oximetry [ Assessment] 09/27/17 09/27/17 09/27/17 10:40 10:44 10:45 Temperature 97.0 F L Pulse Rate 104 H 101 H Respiratory 29 H 31 H Rate Blood Pressure 89/39 89/39 O2 Sat by Pulse Oximetry O2 Sat by Pulse Oximetry [ Anterior Bilateral Throughout] O2 Sat by Pulse 99 Oximetry [ Assessment] 09/27/17 09/27/17 09/27/17 10:53 10:59 11:00 Temperature 97.3 F L Pulse Rate 102 H 107 H 109 H Respiratory 23 22 Rate Blood Pressure 101/76 101/76 101/76 O2 Sat by Pulse 100 Oximetry O2 Sat by Pulse Oximetry [ Anterior Bilateral Throughout] O2 Sat by Pulse Oximetry [ Assessment] 09/27/17 09/27/17 09/27/17 11:16 11:18 11:20 Temperature 97.3 F L Pulse Rate 100 H 103 H 103 H Respiratory 24 25 H Rate Blood Pressure 94/51 94/51 94/51 O2 Sat by Pulse 99 Oximetry O2 Sat by Pulse Oximetry [ Anterior Bilateral Throughout] O2 Sat by Pulse Oximetry [ Assessment] 09/27/17 09/27/17 09/27/17 11:30 11:45 11:56 Temperature 98.0 F Pulse Rate 102 H 101 H 105 H Respiratory 26 H 24 25 H Rate Blood Pressure 87/59 101/65 101/65 O2 Sat by Pulse Oximetry O2 Sat by Pulse Oximetry [ Anterior Bilateral Throughout] O2 Sat by Pulse Oximetry [ Assessment] 09/27/17 09/27/17 09/27/17 12:00 12:02 12:15 Temperature 98.6 F Pulse Rate 104 H 101 H 104 H Respiratory 24 25 H Rate Blood Pressure 97/55 97/55 98/56 O2 Sat by Pulse 100 83 L Oximetry O2 Sat by Pulse Oximetry [ Anterior Bilateral Throughout] O2 Sat by Pulse Oximetry [ Assessment] 09/27/17 09/27/17 09/27/17 12:30 12:36 12:45 Temperature Pulse Rate 104 H 105 H 102 H Respiratory 25 H 24 Rate Blood Pressure 98/43 98/43 88/62 O2 Sat by Pulse Oximetry O2 Sat by Pulse Oximetry [ Anterior Bilateral Throughout] O2 Sat by Pulse Oximetry [ Assessment] 09/27/17 09/27/17 09/27/17 12:54 13:00 13:09 Temperature Pulse Rate 103 H 102 H 103 H Respiratory 26 H Rate Blood Pressure 88/62 97/55 97/55 O2 Sat by Pulse Oximetry O2 Sat by Pulse Oximetry [ Anterior Bilateral Throughout] O2 Sat by Pulse Oximetry [ Assessment] 09/27/17 09/27/17 09/27/17 13:16 13:20 13:30 Temperature Pulse Rate 104 H 101 H 102 H Respiratory 28 H 23 Rate Blood Pressure 55/40 108/54 108/54 O2 Sat by Pulse Oximetry O2 Sat by Pulse Oximetry [ Anterior Bilateral Throughout] O2 Sat by Pulse Oximetry [ Assessment] 09/27/17 09/27/17 09/27/17 13:34 13:45 14:00 Temperature 98.6 F Pulse Rate 99 H 101 H 100 H Respiratory 24 24 24 Rate Blood Pressure 108/54 103/55 92/68 O2 Sat by Pulse Oximetry O2 Sat by Pulse 100 Oximetry [ Anterior Bilateral Throughout] O2 Sat by Pulse Oximetry [ Assessment] 09/27/17 09/27/17 09/27/17 14:15 14:30 14:45 Temperature Pulse Rate 100 H 100 H 94 H Respiratory 24 23 22 Rate Blood Pressure 111/59 111/59 104/53 O2 Sat by Pulse Oximetry O2 Sat by Pulse Oximetry [ Anterior Bilateral Throughout] O2 Sat by Pulse Oximetry [ Assessment] 09/27/17 09/27/17 09/27/17 15:00 15:15 15:30 Temperature Pulse Rate 102 H 99 H 98 H Respiratory 28 H 24 22 Rate Blood Pressure 104/53 85/56 85/56 O2 Sat by Pulse 100 Oximetry O2 Sat by Pulse Oximetry [ Anterior Bilateral Throughout] O2 Sat by Pulse Oximetry [ Assessment] 09/27/17 09/27/17 09/27/17 15:46 16:00 16:15 Temperature 98.7 F Pulse Rate 107 H 99 H 93 H Respiratory 35 H 17 21 Rate Blood Pressure 112/46 111/38 112/45 O2 Sat by Pulse 98 100 Oximetry O2 Sat by Pulse Oximetry [ Anterior Bilateral Throughout] O2 Sat by Pulse Oximetry [ Assessment] 09/27/17 09/27/17 09/27/17 16:30 16:46 17:00 Temperature Pulse Rate 91 H 96 H 93 H Respiratory 19 21 26 H Rate Blood Pressure 127/52 142/22 142/22 O2 Sat by Pulse 100 100 Oximetry O2 Sat by Pulse Oximetry [ Anterior Bilateral Throughout] O2 Sat by Pulse Oximetry [ Assessment] 09/27/17 09/27/17 09/27/17 17:16 17:24 17:30 Temperature Pulse Rate 94 H 99 H 100 H Respiratory 27 H 19 Rate Blood Pressure 97/51 97/51 97/51 O2 Sat by Pulse 95 95 Oximetry O2 Sat by Pulse Oximetry [ Anterior Bilateral Throughout] O2 Sat by Pulse Oximetry [ Assessment] 09/27/17 09/27/17 09/27/17 17:33 17:45 18:00 Temperature Pulse Rate 92 H 92 H Respiratory 25 H 24 Rate Blood Pressure 128/57 125/51 O2 Sat by Pulse 98 Oximetry O2 Sat by Pulse Oximetry [ Anterior Bilateral Throughout] O2 Sat by Pulse 96 Oximetry [ Assessment] 09/27/17 09/27/17 09/27/17 18:15 18:30 18:45 Temperature Pulse Rate 95 H 92 H 91 H Respiratory 24 23 22 Rate Blood Pressure 120/57 128/54 127/56 O2 Sat by Pulse 98 99 Oximetry O2 Sat by Pulse Oximetry [ Anterior Bilateral Throughout] O2 Sat by Pulse Oximetry [ Assessment] 09/27/17 09/27/17 09/27/17 18:55 19:00 19:15 Temperature Pulse Rate 93 H 92 H 93 H Respiratory 23 20 Rate Blood Pressure 123/63 136/58 O2 Sat by Pulse 99 99 91 Oximetry O2 Sat by Pulse Oximetry [ Anterior Bilateral Throughout] O2 Sat by Pulse Oximetry [ Assessment] 09/27/17 09/27/17 09/27/17 19:30 19:40 19:45 Temperature Pulse Rate 94 H 92 H 90 Respiratory 25 H 16 Rate Blood Pressure 114/60 114/60 122/67 O2 Sat by Pulse 91 99 Oximetry O2 Sat by Pulse Oximetry [ Anterior Bilateral Throughout] O2 Sat by Pulse Oximetry [ Assessment] 09/27/17 09/27/17 09/27/17 19:58 20:00 20:16 Temperature 99.4 F Pulse Rate 93 H 90 Respiratory 23 22 Rate Blood Pressure 123/63 126/61 O2 Sat by Pulse 99 56 L Oximetry O2 Sat by Pulse Oximetry [ Anterior Bilateral Throughout] O2 Sat by Pulse Oximetry [ Assessment] 09/27/17 09/27/17 09/27/17 20:30 20:45 20:55 Temperature Pulse Rate 93 H 93 H 93 H Respiratory 16 19 Rate Blood Pressure 113/62 102/44 O2 Sat by Pulse 99 99 Oximetry O2 Sat by Pulse Oximetry [ Anterior Bilateral Throughout] O2 Sat by Pulse Oximetry [ Assessment] 09/27/17 21:00 Temperature Pulse Rate 90 Respiratory 22 Rate Blood Pressure 116/53 O2 Sat by Pulse 98 Oximetry O2 Sat by Pulse Oximetry [ Anterior Bilateral Throughout] O2 Sat by Pulse Oximetry [ Assessment] General appearance: Present: mild distress - EENT Eyes: PERRL, EOM intact ENT: hearing intact, clear oral mucosa Ears: bilateral: normal - Neck Neck: supple, normal ROM - Respiratory Respiratory: bilateral: diminished, rhonchi - Breasts Breasts: deferred - Cardiovascular Rhythm: regular Heart Sounds: Present: S1 & S2. Absent: gallop, rub Extremities: pulses intact, No edema, normal color, Full ROM - Gastrointestinal General gastrointestinal: Present: soft, non-tender, non-distended, normal bowel sounds Rectal Exam: deferred - Genitourinary Female genitourinary: deferred - Integumentary Integumentary: clear, warm, dry - Neurologic Neurologic: moves all extremities - Psychiatric Psychiatric: appropriate mood/affect - Labs CBC & Chem 7: 09/27/17 04:00 09/27/17 04:00 Labs: Abnormal lab results 09/27/17 09/27/17 09/27/17 Range/Units 00:11 04:00 04:00 WBC 63.0 H* (4.5-11.0) K/mm3 RBC 2.23 L (3.65-5.03) M/mm3 Hgb 6.3 L (10.1-14.3) gm/dl Hct 20.6 L (30.3-42.9) % RDW 20.6 H (13.2-15.2) % Lymphocytes % (Manual) 3.0 L (13.4-35.0) % Nucleated RBC % 6.0 H (0.0-0.9) % Seg Neutrophils # Man 40.3 H (1.8-7.7) K/mm3 Monocytes # (Manual) 4.4 H (0.0-0.8) K/mm3 Carbon Dioxide 19 L (22-30) mmol/L BUN 102 H (7-17) mg/dL Creatinine 2.8 H (0.7-1.2) mg/dL Glucose 141 H (65-100) mg/dL POC Glucose 194 H (70-105) Calcium 8.1 L (8.4-10.2) mg/dL Magnesium (1.7-2.3) mg/dL Crossmatch 09/27/17 09/27/17 09/27/17 Range/Units 04:00 05:11 08:58 WBC (4.5-11.0) K/mm3 RBC (3.65-5.03) M/mm3 Hgb (10.1-14.3) gm/dl Hct (30.3-42.9) % RDW (13.2-15.2) % Lymphocytes % (Manual) (13.4-35.0) % Nucleated RBC % (0.0-0.9) % Seg Neutrophils # Man (1.8-7.7) K/mm3 Monocytes # (Manual) (0.0-0.8) K/mm3 Carbon Dioxide (22-30) mmol/L BUN (7-17) mg/dL Creatinine (0.7-1.2) mg/dL Glucose (65-100) mg/dL POC Glucose 189 H (70-105) Calcium (8.4-10.2) mg/dL Magnesium 2.40 H (1.7-2.3) mg/dL Crossmatch See Detail 09/27/17 09/27/17 Range/Units 11:54 17:20 WBC (4.5-11.0) K/mm3 RBC (3.65-5.03) M/mm3 Hgb (10.1-14.3) gm/dl Hct (30.3-42.9) % RDW (13.2-15.2) % Lymphocytes % (Manual) (13.4-35.0) % Nucleated RBC % (0.0-0.9) % Seg Neutrophils # Man (1.8-7.7) K/mm3 Monocytes # (Manual) (0.0-0.8) K/mm3 Carbon Dioxide (22-30) mmol/L BUN (7-17) mg/dL Creatinine (0.7-1.2) mg/dL Glucose (65-100) mg/dL POC Glucose 196 H 199 H (70-105) Calcium (8.4-10.2) mg/dL Magnesium (1.7-2.3) mg/dL Crossmatch
[2017-09-28] MEDS: NOVOLOG SUB-Q SCH ×4 (00:48→18:50)
[2017-09-28 04:43] LABS: Hematocrit 27.6 % (30.3-42.9); Hemoglobin 9.6 gm/dl (10.1-14.3); Mean Corpuscular HGB Conc 35 % (30-34); Mean Corpuscular Hemoglobin 31 pg (28-32); Mean Corpuscular Volume 89 fl (79-97); Platelet Count 266 K/mm3 (140-440); Red Cell Distribution Width 17.1 % (13.2-15.2)
[2017-09-28 04:51] LABS: Calcium 7.4 mg/dL (8.4-10.2); Chloride 99.3 mmol/L (98-107)
[2017-09-28 04:56] LABS: Potassium 3.4 mmol/L (3.6-5.0)
[2017-09-28 04:59] LABS: Phosphorous 2.7 mg/dL (2.5-4.5)
[2017-09-28] MEDS: LEVOPHED 8 MG in NACL 0.9% 250ML 242 ML IV SCH ×2 (05:57→22:27)
--- NOTE | 2017-09-28 07:06 | Progress Note ---
Assessment and Plan - Patient Problems (1) ESRD (end stage renal disease) on dialysis Current Visit: Yes Status: Acute Plan to address problem: Continue HD on MWF Isolated UF as needed on TTS as tolerated. UF today. Patient is on TPN. Monitor lytes. S/p switched from PD. (2) Anemia Current Visit: No Status: Chronic Qualifiers: Anemia type: due to chronic kidney disease Iron deficiency anemia type: I Vitamin B12 deficiency anemia type: V Folate deficiency anemia type: F Bone marrow failure anemia type: B Hemolytic anemia type: H Other causes of anemia: O Chronic kidney disease stage: on chronic dialysis Qualified Code(s ): N18.6 - End stage renal disease; D63.1 - Anemia in chronic kidney disease; Z99.2 - Dependence on renal dialysis Plan to address problem: S/p multiple units of PRBC. Patient continues to drop Hb level. Last transfused yesterday. Epogen on dialysis days. (3) Hypotension Current Visit: Yes Status: Chronic Qualifiers: Hypotension type: H Trimester: T Plan to address problem: On Levophed. (4) Volume overload Current Visit: Yes Status: Acute Qualifiers: Hypervolemia type: H Plan to address problem: UF as tolerated. (5) Leukocytosis Current Visit: Yes Status: Acute Qualifiers: Leukocytosis type: unspecified Qualified Code(s): D72.829 - Elevated white blood cell count, unspecified (6) Acute respiratory failure with hypoxemia Current Visit: Yes Status: Acute Plan to address problem: On the vent. (7) Sepsis Current Visit: Yes Status: Acute Qualifiers: Sepsis type: S Subjective Date of service: 09/28/17 Principal diagnosis: respiratory failure, sepsis, shock rectal bleeding Interval history: Patient was seen and examined at the bedside. Remain on the vent. Objective - Vital Signs Vital signs: Vital Signs - 12hr 09/27/17 09/27/17 09/27/17 19:15 19:24 19:30 Temperature Pulse Rate 93 H 94 H Respiratory 20 25 H 25 H Rate Blood Pressure 136/58 114/60 O2 Sat by Pulse 91 91 Oximetry O2 Sat by Pulse Oximetry [ Assessment] 09/27/17 09/27/17 09/27/17 19:40 19:45 19:58 Temperature 99.4 F Pulse Rate 92 H 90 Respiratory 16 Rate Blood Pressure 114/60 122/67 O2 Sat by Pulse 99 Oximetry O2 Sat by Pulse Oximetry [ Assessment] 09/27/17 09/27/17 09/27/17 20:00 20:16 20:30 Temperature Pulse Rate 93 H 90 93 H Respiratory 23 22 16 Rate Blood Pressure 123/63 126/61 113/62 O2 Sat by Pulse 99 56 L 99 Oximetry O2 Sat by Pulse Oximetry [ Assessment] 09/27/17 09/27/17 09/27/17 20:45 20:55 21:00 Temperature Pulse Rate 93 H 93 H 90 Respiratory 19 22 Rate Blood Pressure 102/44 116/53 O2 Sat by Pulse 99 98 Oximetry O2 Sat by Pulse Oximetry [ Assessment] 09/27/17 09/27/17 09/27/17 21:16 21:30 21:45 Temperature Pulse Rate 94 H 92 H 91 H Respiratory 24 17 20 Rate Blood Pressure 114/47 114/47 107/47 O2 Sat by Pulse 96 96 97 Oximetry O2 Sat by Pulse Oximetry [ Assessment] 09/27/17 09/27/17 09/27/17 21:55 22:00 22:15 Temperature Pulse Rate 95 H 94 H 97 H Respiratory 15 21 Rate Blood Pressure 115/40 112/45 O2 Sat by Pulse 99 99 98 Oximetry O2 Sat by Pulse Oximetry [ Assessment] 09/27/17 09/27/17 09/27/17 22:30 22:45 23:00 Temperature Pulse Rate 105 H 95 H 91 H Respiratory 23 24 15 Rate Blood Pressure 118/92 113/38 114/43 O2 Sat by Pulse Oximetry O2 Sat by Pulse Oximetry [ Assessment] 09/27/17 09/27/17 09/27/17 23:15 23:16 23:17 Temperature Pulse Rate 97 H 93 H 91 H Respiratory 17 19 Rate Blood Pressure 132/61 132/61 O2 Sat by Pulse Oximetry O2 Sat by Pulse Oximetry [ Assessment] 09/27/17 09/27/17 09/27/17 23:30 23:42 23:45 Temperature 99.6 F Pulse Rate 95 H 94 H 96 H Respiratory 18 23 Rate Blood Pressure 132/73 132/73 127/51 O2 Sat by Pulse 99 99 Oximetry O2 Sat by Pulse 99 Oximetry [ Assessment] 09/28/17 09/28/17 09/28/17 00:00 00:15 00:30 Temperature Pulse Rate 96 H 107 H 97 H Respiratory 24 17 21 Rate Blood Pressure 135/43 135/52 137/69 O2 Sat by Pulse Oximetry O2 Sat by Pulse Oximetry [ Assessment] 09/28/17 09/28/17 09/28/17 00:45 01:00 01:15 Temperature Pulse Rate 90 95 H 96 H Respiratory 19 22 23 Rate Blood Pressure 125/55 134/52 131/55 O2 Sat by Pulse Oximetry O2 Sat by Pulse Oximetry [ Assessment] 09/28/17 09/28/17 09/28/17 01:30 01:46 02:00 Temperature Pulse Rate 92 H 91 H 94 H Respiratory 18 19 17 Rate Blood Pressure 138/46 122/49 123/52 O2 Sat by Pulse 98 100 Oximetry O2 Sat by Pulse Oximetry [ Assessment] 09/28/17 09/28/17 09/28/17 02:15 02:30 02:45 Temperature Pulse Rate 95 H 92 H 96 H Respiratory 15 18 18 Rate Blood Pressure 115/46 122/47 125/48 O2 Sat by Pulse 87 79 L 85 Oximetry O2 Sat by Pulse Oximetry [ Assessment] 09/28/17 09/28/17 09/28/17 03:00 03:05 03:16 Temperature Pulse Rate 102 H 94 H Respiratory 15 17 Rate Blood Pressure 125/48 119/62 O2 Sat by Pulse 99 88 Oximetry O2 Sat by Pulse Oximetry [ Assessment] 09/28/17 09/28/17 09/28/17 03:30 03:40 03:46 Temperature 99.9 F H Pulse Rate 95 H 91 H Respiratory 15 21 Rate Blood Pressure 126/56 139/58 O2 Sat by Pulse 79 L 100 Oximetry O2 Sat by Pulse Oximetry [ Assessment] 09/28/17 09/28/17 09/28/17 04:00 04:15 04:20 Temperature Pulse Rate 92 H 96 H 96 H Respiratory 20 19 Rate Blood Pressure 142/52 137/72 O2 Sat by Pulse 77 L 66 L 99 Oximetry O2 Sat by Pulse Oximetry [ Assessment] 09/28/17 09/28/17 09/28/17 04:30 04:42 04:45 Temperature Pulse Rate 96 H 94 H 93 H Respiratory 18 19 Rate Blood Pressure 123/53 137/72 123/62 O2 Sat by Pulse 75 L 100 94 Oximetry O2 Sat by Pulse Oximetry [ Assessment] 09/28/17 09/28/17 09/28/17 05:00 05:16 05:23 Temperature Pulse Rate 94 H 94 H 93 H Respiratory 17 19 18 Rate Blood Pressure 123/62 113/52 O2 Sat by Pulse Oximetry O2 Sat by Pulse Oximetry [ Assessment] 09/28/17 09/28/17 09/28/17 05:30 05:45 06:00 Temperature Pulse Rate 96 H 93 H 93 H Respiratory 17 20 18 Rate Blood Pressure 113/52 124/50 132/47 O2 Sat by Pulse 65 L 78 L 76 L Oximetry O2 Sat by Pulse Oximetry [ Assessment] 09/28/17 06:25 Temperature Pulse Rate Respiratory 18 Rate Blood Pressure O2 Sat by Pulse 99 Oximetry O2 Sat by Pulse Oximetry [ Assessment] - General Appearance General appearance: well-developed, appears stated age, obese, other (Trached on vent, FiO2 25%, right Ij temp catheter) EENT: ATNC, PERRL Neck: other (trached) Respiratory: Present: Clear to Ascultation Cardiology: regular, S1S2, no murmurs Gastrointestinal: obese, other (Ostomy, multiple drains and G-tube noted) Integumentary: no rash Neurologic: other (alert, grimaces) Musculoskeletal: other (1 to 2+ edema noted) - Lab 09/28/17 Unknown 09/28/17 Unknown Most recent lab results ABG pH 7.323 pH Units (7.350-7.450) L 09/09/17 Unknown ABG pCO2 41.1 mm Hg 09/09/17 Unknown ABG pO2 94.1 mm Hg (80.0-90.0) H 09/09/17 Unknown ABG HCO3 20.9 mmol/L (20.0-26.0) 09/09/17 Unknown ABG O2 Saturation 97.2 % (95.0-99.0) 09/09/17 Unknown Calcium 7.4 mg/dL (8.4-10.2) L 09/28/17 Unknown Phosphorus 2.70 mg/dL (2.5-4.5) D 09/28/17 Unknown Magnesium 2.00 mg/dL (1.7-2.3) 09/28/17 Unknown
[2017-09-28 09:25] LABS: Anisocytosis 1+; Basophils % (Manual) 0 % (0.0-1.8); Blastocytes % (Manual) 0 %; Eosinophils % (Manual) 0 % (0.0-4.3); Hypochromasia 1+; Nucleated Red Blood Cells 0.5 % (0.0-0.9); Polychromasia Few; Schistocytes Rare; Total Cells Counted Percent 13.5
[2017-09-28 09:26] LABS: Diff Status Complete; Large Platelets Few; Ovalocytes Few; Platelet Estimate Consistent w Auto
[2017-09-28] MEDS: DIFLUCAN 200 MG/100 ML BAG IV SCH (11:02)
[2017-09-28] MEDS: LEVEMIR SUB-Q SCH (11:02)
[2017-09-28] MEDS: PROTONIX IV SCH (11:02)
[2017-09-28] MEDS: MERREM 1,000 MG in NACL 0.9% 100 ML IV SCH (11:07)
--- NOTE | 2017-09-28 15:54 | Progress Note ---
Assessment and Plan Imp: 1. Acute bacterial peritonitis/abscess s/p PD cath removal and multiple exlaps 2. s/p SBO 3. Acute respiratory failure, hypoxia 4. Morbid obesity, excess cals. 5. ESRD 6. Sepsis -> now SIRS 7. s/p LGIB Rec: 1. Levophed not any worse; believe worsening clinical status was primarily due to sepsis/anastomotic leak, and less likely adrenal insufficiency; patient not healing her wounds including her bowel; recommend continue to remain off steroids unless absolutely necessary; has leukemoid reaction likely due to stress/sepsis -> better today 2. Monitor volume status with TPN; remove volume as able with HD; d/w surgery who will start trophic TFs today 3. Cont. ventilator -> daily PSV 4. Add Duonebs TID for wheezing 5. Levophed if necessary to keep MAP > 65 6. Not a candidate for chemical DVT PPx at this point, yet high risk for DVT; foot pumps in place now 7. ABX per ID 8. Prognosis remains poor; no family present today; will need LTAC when abdominal issues stable Complex decision-making Subjective Date of service: 09/28/17 Principal diagnosis: respiratory failure, sepsis, shock rectal bleeding Interval history: Awake, alert. On PRVC. On HD. Levophed dose stable. Received 2 units of PRBCs yesterday. Active Medications Albuterol/Ipratropium (Duoneb *Not For Prn Use*) 1 ampul IH Q8HRT GLORIA Dextrose (D50w (25gm) Vial) 50 gm IV PRN PRN PRN Reason: Hypoglycemia Last Admin: 09/15/17 23:57 Dose: 50 gm Heparin Sodium (Porcine) (Heparin 10,000 Units/10 Ml) 2,000 unit IV ISIAH PRN PRN Reason: hemodialysis Last Admin: 09/23/17 14:20 Dose: 2,000 unit Heparin Sodium (Porcine) (Heparin) 5,000 unit IV ISIAH PRN PRN Reason: hemodialysis Last Admin: 09/27/17 13:38 Dose: 5,000 unit Hydromorphone HCl (Dilaudid) 1 mg IV Q4H PRN PRN Reason: Pain , Severe (7-10) Last Admin: 09/27/17 18:54 Dose: 1 mg Hydrophilic Ointment (Vaseline Lip Therapy) 1 applic TP DIRECT PRN PRN Reason: DRY LIPS Last Admin: 09/14/17 11:55 Dose: 1 applic Norepinephrine 8 mg/ Sodium (Chloride) 250 mls @ 3.75 mls/hr IV TITR GLORIA; 2 MCG /MIN PRN Reason: Protocol Last Admin: 09/28/17 05:57 Dose: 8 mcg/min, 15 mls/hr Fluconazole (Diflucan) 200 mg in 100 mls @ 100 mls/hr IV Q24HR GLORIA PRN Reason: Protocol Last Admin: 09/28/17 11:02 Dose: 100 mls/hr Meropenem 1,000 mg/ Sodium (Chloride) 100 mls @ 100 mls/hr IV Q24HR GLORIA PRN Reason: Protocol Last Admin: 09/28/17 11:07 Dose: 100 mls/hr Sodium Chloride (Nacl 0.9%) 100 mls @ 999 mls/hr IV ISIAH PRN PRN Reason: Hypotension Amino Acids/Electrolytes/Dextrose (Tpn Adult) 1,800 mls @ 75 mls/hr IV DAILY@ 2000 GLORIA PRN Reason: Protocol Stop: 09/28/17 19:59 Last Admin: 09/27/17 20:48 Dose: 75 mls/hr Amino Acids/Electrolytes/Dextrose (Tpn Adult) 1,800 mls @ 75 mls/hr IV DAILY@ 2000 GLORIA PRN Reason: Protocol Stop: 09/29/17 19:59 Insulin Aspart (Novolog) 0 units SUB-Q Q6HR GLORIA PRN Reason: Protocol Last Admin: 09/28/17 13:22 Dose: 4 units Insulin Detemir (Levemir) 45 units SUB-Q DAILY [facility] Last Admin: 09/28/17 11:02 Dose: 45 units Lorazepam (Ativan) 2 mg IV Q6H PRN PRN Reason: Agitation Last Admin: 09/17/17 10:31 Dose: 2 mg Pantoprazole Sodium (Protonix) 40 mg IV QDAY [facility] Last Admin: 09/28/17 11:02 Dose: 40 mg Objective Vital Signs - 12hr 09/28/17 09/28/17 09/28/17 04:00 04:15 04:20 Temperature Pulse Rate 92 H 96 H 96 H Respiratory 20 19 Rate Blood Pressure 142/52 137/72 O2 Sat by Pulse 77 L 66 L 99 Oximetry 09/28/17 09/28/17 09/28/17 04:30 04:42 04:45 Temperature Pulse Rate 96 H 94 H 93 H Respiratory 18 19 Rate Blood Pressure 123/53 137/72 123/62 O2 Sat by Pulse 75 L 100 94 Oximetry 09/28/17 09/28/17 09/28/17 05:00 05:16 05:23 Temperature Pulse Rate 94 H 94 H 93 H Respiratory 17 19 18 Rate Blood Pressure 123/62 113/52 O2 Sat by Pulse Oximetry 09/28/17 09/28/17 09/28/17 05:30 05:45 06:00 Temperature Pulse Rate 96 H 93 H 93 H Respiratory 17 20 18 Rate Blood Pressure 113/52 124/50 132/47 O2 Sat by Pulse 65 L 78 L 76 L Oximetry 09/28/17 09/28/17 09/28/17 06:16 06:25 06:30 Temperature Pulse Rate 92 H 93 H Respiratory 18 18 17 Rate Blood Pressure 121/60 124/50 O2 Sat by Pulse 100 99 Oximetry 09/28/17 09/28/17 09/28/17 06:45 07:00 07:16 Temperature Pulse Rate 92 H 92 H 100 H Respiratory 17 17 21 Rate Blood Pressure 129/58 137/44 140/35 O2 Sat by Pulse 67 L 93 88 Oximetry 09/28/17 09/28/17 09/28/17 07:28 07:30 07:46 Temperature 99.2 F Pulse Rate 91 H 99 H Respiratory 21 22 Rate Blood Pressure 150/35 161/140 O2 Sat by Pulse 98 96 Oximetry 09/28/17 09/28/17 09/28/17 08:00 08:16 08:28 Temperature Pulse Rate 94 H 96 H 96 H Respiratory 17 11 L Rate Blood Pressure 120/32 134/27 134/27 O2 Sat by Pulse 100 95 100 Oximetry 09/28/17 09/28/17 09/28/17 08:30 08:32 08:46 Temperature Pulse Rate 96 H 96 H 96 H Respiratory 21 31 H 23 Rate Blood Pressure 142/43 142/43 130/46 O2 Sat by Pulse 52 L 100 Oximetry 09/28/17 09/28/17 09/28/17 09:00 09:15 12:00 Temperature 98.8 F Pulse Rate 97 H 99 H 93 H Respiratory 32 H 25 H Rate Blood Pressure 125/47 136/53 97/48 O2 Sat by Pulse 85 89 98 Oximetry Constitutional: other (critically ill on vent, obese) Eyes: non-icteric ENT: oropharynx dry Neck: supple, other (trach in position, no bleeding) Effort: mildly labored Ascultation: Bilateral: wheezes (faint expiratory wheezes), other (coarse BS bilaterally) Cardiovascular: other (tachy, RR; no mrg) Gastrointestinal: absent bowel sounds, non-tender, other (abdominal incision with dressing , obese. Drain in place, no bleeding; ostomy with brown stool) Integumentary: normal Extremities: no cyanosis, pink and warm, edema Neurologic: non-focal exam, pupils equal and round Psychiatric: mood appropriate, affect normal CBC and BMP: 09/28/17 Unknown 09/28/17 Unknown ABG, PT/INR, D-dimer: ABG POC ABG pH 7.347 (7.35-7.45) L 09/13/17 11:36 ABG pH 7.323 pH Units (7.350-7.450) L 09/09/17 Unknown POC ABG pCO2 34.3 (35-45) L 09/13/17 11:36 ABG pCO2 41.1 mm Hg 09/09/17 Unknown POC ABG pO2 134 (80-105) H 09/13/17 11:36 ABG pO2 94.1 mm Hg (80.0-90.0) H 09/09/17 Unknown POC ABG HCO3 18.8 09/13/17 11:36 POC ABG Total CO2 20 09/13/17 11:36 POC ABG O2 Sat 99 09/13/17 11:36 ABG O2 Saturation 97.2 % (95.0-99.0) 09/09/17 Unknown PT/INR, D-dimer PT 14.9 Sec. (12.2-14.9) 09/21/17 07:00 INR 1.11 (0.87-1.13) 09/21/17 07:00 Abnormal lab findings: Abnormal Labs 08/08/17 08/08/17 08/09/17 21:23 21:31 11:19 WBC 15.7 H RBC 2.93 L Hgb 8.7 L Hct 26.8 L MCV MCH MCHC RDW 19.2 H Plt Count Lymph % (Auto) [place] % (Auto) [place] # Seg Neutrophils % Seg Neuts % (Manual) Lymphocytes % (Manual) Monocytes % (Manual) Nucleated RBC % Seg Neutrophils # Seg Neutrophils # Man Lymphocytes # (Manual) Monocytes # (Manual) Eosinophils # (Manual) Basophils # (Manual) PT INR POC ABG pH 7.490 H ABG pH POC ABG pCO2 POC ABG pO2 122 H ABG pO2 ABG O2 Saturation ABG Base Excess ABG Hemoglobin Oxyhemoglobin Sodium Potassium Chloride Carbon Dioxide BUN Creatinine Glucose POC Glucose Calcium Phosphorus Magnesium Iron TIBC Ferritin Total Bilirubin AST ALT Alkaline Phosphatase Total Creatine Kinase Troponin T 0.133 H* C-Reactive Protein Total Protein Albumin Triglycerides HDL Cholesterol 26 L Miscellaneous Test Crossmatch 08/09/17 08/10/17 08/10/17 13:25 04:45 04:45 WBC 15.5 H RBC 2.97 L Hgb 8.9 L Hct 27.0 L MCV MCH MCHC RDW 19.2 H Plt Count Lymph % (Auto) [place] % (Auto) [place] # Seg Neutrophils % Seg Neuts % (Manual) 73.0 H Lymphocytes % (Manual) 7.0 L Monocytes % (Manual) 14.0 H Nucleated RBC % Seg Neutrophils # Seg Neutrophils # Man 11.3 H Lymphocytes # (Manual) 1.1 L Monocytes # (Manual) 2.2 H Eosinophils # (Manual) Basophils # (Manual) 0.2 H PT INR POC ABG pH ABG pH POC ABG pCO2 POC ABG pO2 ABG pO2 ABG O2 Saturation ABG Base Excess ABG Hemoglobin Oxyhemoglobin Sodium Potassium 3.3 L Chloride 97.3 L Carbon Dioxide 21 L BUN 23 H Creatinine 6.5 H Glucose POC Glucose Calcium 7.3 L Phosphorus Magnesium Iron TIBC Ferritin Total Bilirubin AST ALT Alkaline Phosphatase 138 H Total Creatine Kinase Troponin T 0.132 H* C-Reactive Protein Total Protein 4.8 L Albumin 1.4 L Triglycerides HDL Cholesterol Miscellaneous Test Crossmatch 08/11/17 08/11/17 08/12/17 04:00 04:00 05:50 WBC 19.3 H RBC 3.10 L Hgb 9.5 L Hct 28.2 L MCV MCH MCHC RDW 19.2 H Plt Count 463 H Lymph % (Auto) 7.5 L [place] % (Auto) 14.6 H [place] # 2.8 H Seg Neutrophils % 77.0 H Seg Neuts % (Manual) Lymphocytes % (Manual) Monocytes % (Manual) Nucleated RBC % Seg Neutrophils # 14.8 H Seg Neutrophils # Man Lymphocytes # (Manual) Monocytes # (Manual) Eosinophils # (Manual) Basophils # (Manual) PT INR POC ABG pH ABG pH POC ABG pCO2 POC ABG pO2 ABG pO2 ABG O2 Saturation ABG Base Excess ABG Hemoglobin Oxyhemoglobin Sodium 136 L 136 L Potassium 3.3 L Chloride 96.3 L 96.6 L Carbon Dioxide BUN 26 H 26 H Creatinine 6.4 H 6.2 H Glucose 135 H 133 H POC Glucose Calcium 8.2 L Phosphorus Magnesium 1.30 L Iron TIBC Ferritin Total Bilirubin AST ALT Alkaline Phosphatase 139 H Total Creatine Kinase Troponin T C-Reactive Protein Total Protein 5.5 L Albumin 1.7 L Triglycerides HDL Cholesterol Miscellaneous Test Crossmatch 08/12/17 08/12/17 08/12/17 05:50 05:50 05:50 WBC 20.1 H RBC 3.06 L Hgb 9.3 L Hct 27.9 L MCV MCH MCHC RDW 18.4 H Plt Count 471 H Lymph % (Auto) [place] % (Auto) [place] # Seg Neutrophils % Seg Neuts % (Manual) 85.0 H Lymphocytes % (Manual) 8.0 L Monocytes % (Manual) Nucleated RBC % Seg Neutrophils # Seg Neutrophils # Man 17.1 H Lymphocytes # (Manual) Monocytes # (Manual) 1.0 H Eosinophils # (Manual) Basophils # (Manual) PT 15.2 H INR 1.14 H POC ABG pH ABG pH POC ABG pCO2 POC ABG pO2 ABG pO2 ABG O2 Saturation ABG Base Excess ABG Hemoglobin Oxyhemoglobin Sodium Potassium Chloride Carbon Dioxide BUN Creatinine Glucose POC Glucose Calcium Phosphorus Magnesium Iron TIBC Ferritin Total Bilirubin AST ALT Alkaline Phosphatase Total Creatine Kinase Troponin T C-Reactive Protein 28.90 H Total Protein Albumin Triglycerides HDL Cholesterol Miscellaneous Test Crossmatch 08/12/17 08/13/17 08/13/17 16:23 06:14 06:14 WBC 21.8 H RBC 3.11 L Hgb 9.4 L Hct 28.2 L MCV MCH MCHC RDW 18.2 H Plt Count 492 H Lymph % (Auto) [place] % (Auto) [place] # Seg Neutrophils % Seg Neuts % (Manual) 73.0 H Lymphocytes % (Manual) 2.0 L Monocytes % (Manual) 15 H Nucleated RBC % Seg Neutrophils # Seg Neutrophils # Man 15.9 H Lymphocytes # (Manual) 0.4 L Monocytes # (Manual) 2.4 H Eosinophils # (Manual) Basophils # (Manual) PT INR POC ABG pH ABG pH POC ABG pCO2 POC ABG pO2 ABG pO2 ABG O2 Saturation ABG Base Excess ABG Hemoglobin Oxyhemoglobin Sodium Potassium Chloride 96.2 L Carbon Dioxide BUN 28 H Creatinine 5.6 H Glucose 114 H POC Glucose Calcium Phosphorus Magnesium Iron TIBC Ferritin Total Bilirubin AST ALT Alkaline Phosphatase Total Creatine Kinase Troponin T C-Reactive Protein 26.10 H Total Protein Albumin Triglycerides HDL Cholesterol Miscellaneous Test Crossmatch 08/13/17 08/14/17 08/14/17 16:39 04:00 04:00 WBC 22.1 H RBC 3.25 L Hgb 9.9 L Hct 29.5 L MCV MCH MCHC RDW 17.9 H Plt Count 525 H Lymph % (Auto) [place] % (Auto) [place] # Seg Neutrophils % Seg Neuts % (Manual) 74.0 H Lymphocytes % (Manual) 8.0 L Monocytes % (Manual) 12.0 H Nucleated RBC % Seg Neutrophils # Seg Neutrophils # Man 16.4 H Lymphocytes # (Manual) Monocytes # (Manual) 2.7 H Eosinophils # (Manual) Basophils # (Manual) PT INR POC ABG pH ABG pH POC ABG pCO2 POC ABG pO2 ABG pO2 ABG O2 Saturation ABG Base Excess ABG Hemoglobin Oxyhemoglobin Sodium 134 L Potassium 3.3 L Chloride 93.3 L Carbon Dioxide BUN 27 H Creatinine 6.0 H Glucose 152 H POC Glucose 151 H Calcium Phosphorus Magnesium Iron TIBC Ferritin Total Bilirubin AST ALT Alkaline Phosphatase Total Creatine Kinase Troponin T C-Reactive Protein Total Protein Albumin Triglycerides HDL Cholesterol Miscellaneous Test Crossmatch 08/15/17 08/16/17 08/16/17 09:10 09:50 09:50 WBC 31.1 H RBC 3.21 L Hgb 9.6 L Hct 29.3 L MCV MCH MCHC RDW 18.1 H Plt Count 642 H Lymph % (Auto) [place] % (Auto) [place] # Seg Neutrophils % Seg Neuts % (Manual) 74.0 H Lymphocytes % (Manual) 4.0 L Monocytes % (Manual) 9.0 H Nucleated RBC % Seg Neutrophils # Seg Neutrophils # Man 23.0 H Lymphocytes # (Manual) Monocytes # (Manual) 2.8 H Eosinophils # (Manual) Basophils # (Manual) PT INR POC ABG pH ABG pH POC ABG pCO2 POC ABG pO2 ABG pO2 ABG O2 Saturation ABG Base Excess ABG Hemoglobin Oxyhemoglobin Sodium 136 L 136 L Potassium 3.5 L Chloride 97.6 L 94.9 L Carbon Dioxide BUN 27 H 28 H Creatinine 5.6 H 5.5 H Glucose 117 H 103 H POC Glucose Calcium Phosphorus Magnesium Iron TIBC Ferritin Total Bilirubin AST ALT Alkaline Phosphatase 137 H Total Creatine Kinase Troponin T C-Reactive Protein Total Protein 5.4 L Albumin 1.5 L Triglycerides HDL Cholesterol Miscellaneous Test Crossmatch 08/16/17 08/17/17 08/17/17 09:50 05:00 06:26 WBC RBC Hgb Hct MCV MCH MCHC RDW Plt Count Lymph % (Auto) [place] % (Auto) [place] # Seg Neutrophils % Seg Neuts % (Manual) Lymphocytes % (Manual) Monocytes % (Manual) Nucleated RBC % Seg Neutrophils # Seg Neutrophils # Man Lymphocytes # (Manual) Monocytes # (Manual) Eosinophils # (Manual) Basophils # (Manual) PT INR POC ABG pH ABG pH POC ABG pCO2 POC ABG pO2 ABG pO2 ABG O2 Saturation ABG Base Excess ABG Hemoglobin Oxyhemoglobin Sodium 134 L Potassium 3.0 L Chloride 97.8 L Carbon Dioxide BUN 30 H Creatinine 5.3 H Glucose 147 H POC Glucose 165 H Calcium 7.5 L Phosphorus Magnesium Iron TIBC Ferritin Total Bilirubin AST ALT Alkaline Phosphatase Total Creatine Kinase Troponin T C-Reactive Protein 32.30 H Total Protein Albumin Triglycerides HDL Cholesterol Miscellaneous Test Crossmatch 08/17/17 08/17/17 08/17/17 10:56 11:20 11:20 WBC 39.1 H RBC 3.10 L Hgb 9.2 L Hct 28.6 L MCV MCH MCHC RDW 18.3 H Plt Count 580 H Lymph % (Auto) [place] % (Auto) [place] # Seg Neutrophils % Seg Neuts % (Manual) 89.5 H Lymphocytes % (Manual) 3.5 L Monocytes % (Manual) Nucleated RBC % Seg Neutrophils # Seg Neutrophils # Man 35.0 H Lymphocytes # (Manual) Monocytes # (Manual) 2.5 H Eosinophils # (Manual) Basophils # (Manual) 0.2 H PT INR POC ABG pH 7.464 H ABG pH POC ABG pCO2 34.1 L POC ABG pO2 75 L ABG pO2 ABG O2 Saturation ABG Base Excess ABG Hemoglobin Oxyhemoglobin Sodium Potassium Chloride Carbon Dioxide BUN Creatinine Glucose POC Glucose Calcium Phosphorus Magnesium Iron TIBC Ferritin Total Bilirubin AST ALT Alkaline Phosphatase Total Creatine Kinase Troponin T C-Reactive Protein Total Protein Albumin Triglycerides HDL Cholesterol Miscellaneous Test Flexitest 1 H Crossmatch 08/17/17 08/17/17 08/17/17 11:20 16:57 20:20 WBC 34.4 H RBC 2.81 L Hgb 8.4 L Hct 26.0 L MCV MCH MCHC RDW 17.8 H Plt Count 455 H Lymph % (Auto) [place] % (Auto) [place] # Seg Neutrophils % Seg Neuts % (Manual) Lymphocytes % (Manual) 3.5 L Monocytes % (Manual) Nucleated RBC % 5.0 H Seg Neutrophils # Seg Neutrophils # Man 16.5 H Lymphocytes # (Manual) Monocytes # (Manual) 1.0 H Eosinophils # (Manual) Basophils # (Manual) PT 16.0 H INR 1.29 H POC ABG pH ABG pH POC ABG pCO2 POC ABG pO2 ABG pO2 ABG O2 Saturation ABG Base Excess ABG Hemoglobin Oxyhemoglobin Sodium 135 L Potassium 2.9 L* Chloride Carbon Dioxide 20 L BUN 32 H Creatinine 5.4 H Glucose 129 H POC Glucose Calcium 7.5 L Phosphorus Magnesium 1.50 L Iron TIBC Ferritin Total Bilirubin AST 85 H ALT Alkaline Phosphatase Total Creatine Kinase Troponin T C-Reactive Protein Total Protein 4.0 L D Albumin 1.6 L Triglycerides HDL Cholesterol Miscellaneous Test Crossmatch 08/17/17 08/17/17 08/18/17 20:54 23:47 04:26 WBC RBC Hgb Hct MCV MCH MCHC RDW Plt Count Lymph % (Auto) [place] % (Auto) [place] # Seg Neutrophils % Seg Neuts % (Manual) Lymphocytes % (Manual) Monocytes % (Manual) Nucleated RBC % Seg Neutrophils # Seg Neutrophils # Man Lymphocytes # (Manual) Monocytes # (Manual) Eosinophils # (Manual) Basophils # (Manual) PT INR POC ABG pH 7.557 H ABG pH POC ABG pCO2 23.1 L 29.0 L POC ABG pO2 187 H 148 H ABG pO2 ABG O2 Saturation ABG Base Excess ABG Hemoglobin Oxyhemoglobin Sodium Potassium Chloride Carbon Dioxide BUN Creatinine Glucose POC Glucose 188 H Calcium Phosphorus Magnesium Iron TIBC Ferritin Total Bilirubin AST ALT Alkaline Phosphatase Total Creatine Kinase Troponin T C-Reactive Protein Total Protein Albumin Triglycerides HDL Cholesterol Miscellaneous Test Crossmatch 08/18/17 08/18/17 08/18/17 05:51 11:44 17:07 WBC RBC Hgb Hct MCV MCH MCHC RDW Plt Count Lymph % (Auto) [place] % (Auto) [place] # Seg Neutrophils % Seg Neuts % (Manual) Lymphocytes % (Manual) Monocytes % (Manual) Nucleated RBC % Seg Neutrophils # Seg Neutrophils # Man Lymphocytes # (Manual) Monocytes # (Manual) Eosinophils # (Manual) Basophils # (Manual) PT INR POC ABG pH ABG pH POC ABG pCO2 POC ABG pO2 ABG pO2 ABG O2 Saturation ABG Base Excess ABG Hemoglobin Oxyhemoglobin Sodium Potassium Chloride Carbon Dioxide BUN Creatinine Glucose POC Glucose 202 H 195 H 182 H Calcium Phosphorus Magnesium Iron TIBC Ferritin Total Bilirubin AST ALT Alkaline Phosphatase Total Creatine Kinase Troponin T C-Reactive Protein Total Protein Albumin Triglycerides HDL Cholesterol Miscellaneous Test Crossmatch 08/18/17 08/18/17 08/18/17 23:45 Unknown Unknown WBC 39.0 H RBC 2.84 L Hgb 8.4 L Hct 26.5 L MCV MCH MCHC RDW 18.0 H Plt Count 476 H Lymph % (Auto) [place] % (Auto) [place] # Seg Neutrophils % Seg Neuts % (Manual) Lymphocytes % (Manual) 7.0 L Monocytes % (Manual) 10.0 H Nucleated RBC % 3.0 H Seg Neutrophils # Seg Neutrophils # Man 15.6 H Lymphocytes # (Manual) Monocytes # (Manual) 3.9 H Eosinophils # (Manual) Basophils # (Manual) PT INR POC ABG pH ABG pH POC ABG pCO2 POC ABG pO2 ABG pO2 ABG O2 Saturation ABG Base Excess ABG Hemoglobin Oxyhemoglobin Sodium Potassium Chloride Carbon Dioxide 19 L BUN 34 H Creatinine 5.6 H Glucose 201 H POC Glucose 163 H Calcium 7.8 L Phosphorus 1.90 L D Magnesium 1.60 L Iron TIBC Ferritin Total Bilirubin AST ALT Alkaline Phosphatase Total Creatine Kinase Troponin T C-Reactive Protein Total Protein Albumin Triglycerides HDL Cholesterol Miscellaneous Test Crossmatch 08/19/17 08/19/17 08/19/17 04:18 05:00 05:00 WBC 40.0 H RBC 2.46 L Hgb 7.3 L Hct 22.6 L MCV MCH MCHC RDW 18.1 H Plt Count Lymph % (Auto) [place] % (Auto) [place] # Seg Neutrophils % Seg Neuts % (Manual) Lymphocytes % (Manual) 8.0 L Monocytes % (Manual) Nucleated RBC % 2.0 H Seg Neutrophils # Seg Neutrophils # Man 16.4 H Lymphocytes # (Manual) Monocytes # (Manual) 1.2 H Eosinophils # (Manual) 1.2 H Basophils # (Manual) PT INR POC ABG pH 7.463 H ABG pH POC ABG pCO2 29.7 L POC ABG pO2 134 H ABG pO2 ABG O2 Saturation ABG Base Excess ABG Hemoglobin Oxyhemoglobin Sodium Potassium 5.1 H D Chloride Carbon Dioxide 20 L BUN 40 H Creatinine 5.3 H Glucose 128 H POC Glucose Calcium 7.8 L Phosphorus 1.90 L Magnesium Iron TIBC Ferritin Total Bilirubin AST ALT Alkaline Phosphatase Total Creatine Kinase Troponin T C-Reactive Protein Total Protein Albumin Triglycerides HDL Cholesterol Miscellaneous Test Crossmatch 08/19/17 08/19/17 08/19/17 05:19 07:37 09:52 WBC 45.0 H* RBC 2.50 L Hgb 7.5 L Hct 24.5 L MCV 98 H MCH MCHC RDW 18.4 H Plt Count Lymph % (Auto) [place] % (Auto) [place] # Seg Neutrophils % Seg Neuts % (Manual) 81.5 H Lymphocytes % (Manual) 4.0 L Monocytes % (Manual) Nucleated RBC % 1.0 H Seg Neutrophils # Seg Neutrophils # Man 36.7 H Lymphocytes # (Manual) Monocytes # (Manual) Eosinophils # (Manual) Basophils # (Manual) PT INR POC ABG pH ABG pH POC ABG pCO2 POC ABG pO2 ABG pO2 ABG O2 Saturation ABG Base Excess ABG Hemoglobin Oxyhemoglobin Sodium Potassium Chloride Carbon Dioxide BUN Creatinine Glucose POC Glucose 142 H Calcium Phosphorus Magnesium Iron TIBC Ferritin Total Bilirubin AST ALT Alkaline Phosphatase Total Creatine Kinase Troponin T C-Reactive Protein 34.20 H Total Protein Albumin Triglycerides HDL Cholesterol Miscellaneous Test Crossmatch 08/19/17 08/19/17 08/20/17 11:16 18:12 00:35 WBC RBC Hgb Hct MCV MCH MCHC RDW Plt Count Lymph % (Auto) [place] % (Auto) [place] # Seg Neutrophils % Seg Neuts % (Manual) Lymphocytes % (Manual) Monocytes % (Manual) Nucleated RBC % Seg Neutrophils # Seg Neutrophils # Man Lymphocytes # (Manual) Monocytes # (Manual) Eosinophils # (Manual) Basophils # (Manual) PT INR POC ABG pH ABG pH POC ABG pCO2 POC ABG pO2 ABG pO2 ABG O2 Saturation ABG Base Excess ABG Hemoglobin Oxyhemoglobin Sodium Potassium Chloride Carbon Dioxide BUN Creatinine Glucose POC Glucose 143 H 137 H 164 H Calcium Phosphorus Magnesium Iron TIBC Ferritin Total Bilirubin AST ALT Alkaline Phosphatase Total Creatine Kinase Troponin T C-Reactive Protein Total Protein Albumin Triglycerides HDL Cholesterol Miscellaneous Test Crossmatch 08/20/17 08/20/17 08/20/17 03:20 03:20 04:00 WBC 48.0 H* RBC 2.55 L Hgb 7.6 L Hct 23.4 L MCV MCH MCHC RDW 18.4 H Plt Count Lymph % (Auto) [place] % (Auto) [place] # Seg Neutrophils % Seg Neuts % (Manual) 90.0 H Lymphocytes % (Manual) 3.0 L Monocytes % (Manual) Nucleated RBC % Seg Neutrophils # Seg Neutrophils # Man 43.2 H Lymphocytes # (Manual) Monocytes # (Manual) 1.4 H Eosinophils # (Manual) 0.5 H Basophils # (Manual) PT INR POC ABG pH 7.499 H ABG pH POC ABG pCO2 29.1 L POC ABG pO2 ABG pO2 ABG O2 Saturation ABG Base Excess ABG Hemoglobin Oxyhemoglobin Sodium 135 L Potassium Chloride Carbon Dioxide BUN 28 H Creatinine 4.0 H Glucose 140 H POC Glucose Calcium 8.0 L Phosphorus 1.70 L Magnesium 1.60 L Iron TIBC Ferritin Total Bilirubin AST ALT Alkaline Phosphatase Total Creatine Kinase Troponin T C-Reactive Protein Total Protein Albumin Triglycerides HDL Cholesterol Miscellaneous Test Crossmatch 08/20/17 08/20/17 08/20/17 05:02 12:05 13:12 WBC RBC Hgb Hct MCV MCH MCHC RDW Plt Count Lymph % (Auto) [place] % (Auto) [place] # Seg Neutrophils % Seg Neuts % (Manual) Lymphocytes % (Manual) Monocytes % (Manual) Nucleated RBC % Seg Neutrophils # Seg Neutrophils # Man Lymphocytes # (Manual) Monocytes # (Manual) Eosinophils # (Manual) Basophils # (Manual) PT INR POC ABG pH 7.537 H ABG pH POC ABG pCO2 27.9 L POC ABG pO2 79 L ABG pO2 ABG O2 Saturation ABG Base Excess ABG Hemoglobin Oxyhemoglobin Sodium Potassium Chloride Carbon Dioxide BUN Creatinine Glucose POC Glucose 158 H 203 H Calcium Phosphorus Magnesium Iron TIBC Ferritin Total Bilirubin AST ALT Alkaline Phosphatase Total Creatine Kinase Troponin T C-Reactive Protein Total Protein Albumin Triglycerides HDL Cholesterol Miscellaneous Test Crossmatch 08/20/17 08/21/17 08/21/17 17:13 00:47 03:14 WBC RBC Hgb Hct MCV MCH MCHC RDW Plt Count Lymph % (Auto) [place] % (Auto) [place] # Seg Neutrophils % Seg Neuts % (Manual) Lymphocytes % (Manual) Monocytes % (Manual) Nucleated RBC % Seg Neutrophils # Seg Neutrophils # Man Lymphocytes # (Manual) Monocytes # (Manual) Eosinophils # (Manual) Basophils # (Manual) PT INR POC ABG pH 7.481 H ABG pH POC ABG pCO2 29.6 L POC ABG pO2 ABG pO2 ABG O2 Saturation ABG Base Excess ABG Hemoglobin Oxyhemoglobin Sodium Potassium Chloride Carbon Dioxide BUN Creatinine Glucose POC Glucose 188 H 109 H Calcium Phosphorus Magnesium Iron TIBC Ferritin Total Bilirubin AST ALT Alkaline Phosphatase Total Creatine Kinase Troponin T C-Reactive Protein Total Protein Albumin Triglycerides HDL Cholesterol Miscellaneous Test Crossmatch 08/21/17 08/21/17 08/21/17 05:05 06:50 06:50 WBC 44.7 H* RBC 2.41 L Hgb 7.1 L Hct 22.1 L MCV MCH MCHC RDW 18.3 H Plt Count Lymph % (Auto) [place] % (Auto) [place] # Seg Neutrophils % Seg Neuts % (Manual) 89.0 H Lymphocytes % (Manual) 0 L Monocytes % (Manual) Nucleated RBC % 1.0 H Seg Neutrophils # Seg Neutrophils # Man 39.8 H Lymphocytes # (Manual) 0.0 L Monocytes # (Manual) 1.3 H Eosinophils # (Manual) Basophils # (Manual) PT INR POC ABG pH ABG pH POC ABG pCO2 POC ABG pO2 ABG pO2 ABG O2 Saturation ABG Base Excess ABG Hemoglobin Oxyhemoglobin Sodium 135 L Potassium Chloride Carbon Dioxide BUN 39 H Creatinine 4.4 H Glucose 147 H POC Glucose 166 H Calcium 8.1 L Phosphorus Magnesium Iron TIBC Ferritin Total Bilirubin AST ALT < 5 L Alkaline Phosphatase 164 H Total Creatine Kinase Troponin T C-Reactive Protein Total Protein 4.7 L Albumin 1.4 L Triglycerides HDL Cholesterol Miscellaneous Test Crossmatch 08/21/17 08/21/17 08/21/17 08:00 12:21 17:02 WBC RBC Hgb Hct MCV MCH MCHC RDW Plt Count Lymph % (Auto) [place] % (Auto) [place] # Seg Neutrophils % Seg Neuts % (Manual) Lymphocytes % (Manual) Monocytes % (Manual) Nucleated RBC % Seg Neutrophils # Seg Neutrophils # Man Lymphocytes # (Manual) Monocytes # (Manual) Eosinophils # (Manual) Basophils # (Manual) PT INR POC ABG pH ABG pH POC ABG pCO2 POC ABG pO2 ABG pO2 ABG O2 Saturation ABG Base Excess ABG Hemoglobin Oxyhemoglobin Sodium Potassium Chloride Carbon Dioxide BUN Creatinine Glucose POC Glucose 147 H 135 H Calcium Phosphorus Magnesium Iron TIBC Ferritin Total Bilirubin AST ALT Alkaline Phosphatase Total Creatine Kinase Troponin T C-Reactive Protein Total Protein Albumin Triglycerides HDL Cholesterol Miscellaneous Test Crossmatch See Detail 08/21/17 08/22/17 08/22/17 23:38 03:40 03:40 WBC 42.5 H* RBC 2.88 L Hgb 8.5 L Hct 26.3 L MCV MCH MCHC RDW 17.9 H Plt Count Lymph % (Auto) [place] % (Auto) [place] # Seg Neutrophils % Seg Neuts % (Manual) Lymphocytes % (Manual) 5.0 L Monocytes % (Manual) Nucleated RBC % Seg Neutrophils # Seg Neutrophils # Man 19.6 H Lymphocytes # (Manual) Monocytes # (Manual) 2.6 H Eosinophils # (Manual) Basophils # (Manual) PT INR POC ABG pH ABG pH POC ABG pCO2 POC ABG pO2 ABG pO2 ABG O2 Saturation ABG Base Excess ABG Hemoglobin Oxyhemoglobin Sodium Potassium 3.3 L D Chloride Carbon Dioxide BUN 27 H Creatinine 2.9 H Glucose 144 H POC Glucose 251 H Calcium 8.0 L Phosphorus 2.40 L Magnesium Iron TIBC Ferritin Total Bilirubin AST ALT Alkaline Phosphatase Total Creatine Kinase Troponin T C-Reactive Protein Total Protein Albumin Triglycerides HDL Cholesterol Miscellaneous Test Crossmatch 08/22/17 08/22/17 08/22/17 06:37 08:50 11:25 WBC RBC Hgb Hct MCV MCH MCHC RDW Plt Count Lymph % (Auto) [place] % (Auto) [place] # Seg Neutrophils % Seg Neuts % (Manual) Lymphocytes % (Manual) Monocytes % (Manual) Nucleated RBC % Seg Neutrophils # Seg Neutrophils # Man Lymphocytes # (Manual) Monocytes # (Manual) Eosinophils # (Manual) Basophils # (Manual) PT INR POC ABG pH ABG pH POC ABG pCO2 POC ABG pO2 ABG pO2 ABG O2 Saturation ABG Base Excess ABG Hemoglobin Oxyhemoglobin Sodium Potassium Chloride Carbon Dioxide BUN Creatinine Glucose POC Glucose 152 H 175 H Calcium Phosphorus Magnesium Iron TIBC Ferritin Total Bilirubin AST ALT Alkaline Phosphatase Total Creatine Kinase Troponin T C-Reactive Protein Total Protein Albumin Triglycerides HDL Cholesterol Miscellaneous Test Flexitest 1 H Crossmatch 08/22/17 08/22/17 08/22/17 16:25 17:56 23:03 WBC RBC Hgb Hct MCV MCH MCHC RDW Plt Count Lymph % (Auto) [place] % (Auto) [place] # Seg Neutrophils % Seg Neuts % (Manual) Lymphocytes % (Manual) Monocytes % (Manual) Nucleated RBC % Seg Neutrophils # Seg Neutrophils # Man Lymphocytes # (Manual) Monocytes # (Manual) Eosinophils # (Manual) Basophils # (Manual) PT INR POC ABG pH ABG pH POC ABG pCO2 POC ABG pO2 ABG pO2 ABG O2 Saturation ABG Base Excess ABG Hemoglobin Oxyhemoglobin Sodium Potassium Chloride Carbon Dioxide BUN Creatinine Glucose POC Glucose 232 H 192 H Calcium Phosphorus Magnesium Iron TIBC Ferritin Total Bilirubin AST ALT Alkaline Phosphatase Total Creatine Kinase Troponin T C-Reactive Protein 30.70 H Total Protein Albumin Triglycerides HDL Cholesterol Miscellaneous Test Crossmatch 08/23/17 08/23/17 08/23/17 05:36 08:50 12:14 WBC RBC Hgb Hct MCV MCH MCHC RDW Plt Count Lymph % (Auto) [place] % (Auto) [place] # Seg Neutrophils % Seg Neuts % (Manual) Lymphocytes % (Manual) Monocytes % (Manual) Nucleated RBC % Seg Neutrophils # Seg Neutrophils # Man Lymphocytes # (Manual) Monocytes # (Manual) Eosinophils # (Manual) Basophils # (Manual) PT INR POC ABG pH ABG pH POC ABG pCO2 POC ABG pO2 ABG pO2 ABG O2 Saturation ABG Base Excess ABG Hemoglobin Oxyhemoglobin Sodium Potassium Chloride 107.1 H Carbon Dioxide BUN 49 H Creatinine 3.3 H Glucose 172 H POC Glucose 206 H 238 H Calcium Phosphorus Magnesium 2.40 H Iron TIBC Ferritin Total Bilirubin AST ALT Alkaline Phosphatase Total Creatine Kinase Troponin T C-Reactive Protein Total Protein Albumin Triglycerides HDL Cholesterol Miscellaneous Test Crossmatch 08/23/17 08/23/17 08/24/17 17:21 23:13 04:00 WBC 34.2 H RBC 2.86 L Hgb 8.4 L Hct 25.9 L MCV MCH MCHC RDW 17.9 H Plt Count Lymph % (Auto) [place] % (Auto) [place] # Seg Neutrophils % Seg Neuts % (Manual) 85.0 H Lymphocytes % (Manual) 0.5 L Monocytes % (Manual) Nucleated RBC % 1.0 H Seg Neutrophils # Seg Neutrophils # Man 29.1 H Lymphocytes # (Manual) 0.2 L Monocytes # (Manual) 2.4 H Eosinophils # (Manual) Basophils # (Manual) PT INR POC ABG pH ABG pH POC ABG pCO2 POC ABG pO2 ABG pO2 ABG O2 Saturation ABG Base Excess ABG Hemoglobin Oxyhemoglobin Sodium Potassium Chloride Carbon Dioxide BUN Creatinine Glucose POC Glucose 226 H 183 H Calcium Phosphorus Magnesium Iron TIBC Ferritin Total Bilirubin AST ALT Alkaline Phosphatase Total Creatine Kinase Troponin T C-Reactive Protein Total Protein Albumin Triglycerides HDL Cholesterol Miscellaneous Test Crossmatch 08/24/17 08/24/17 08/24/17 05:06 09:30 12:04 WBC RBC Hgb Hct MCV MCH MCHC RDW Plt Count Lymph % (Auto) [place] % (Auto) [place] # Seg Neutrophils % Seg Neuts % (Manual) Lymphocytes % (Manual) Monocytes % (Manual) Nucleated RBC % Seg Neutrophils # Seg Neutrophils # Man Lymphocytes # (Manual) Monocytes # (Manual) Eosinophils # (Manual) Basophils # (Manual) PT INR POC ABG pH ABG pH POC ABG pCO2 POC ABG pO2 ABG pO2 ABG O2 Saturation ABG Base Excess ABG Hemoglobin Oxyhemoglobin Sodium Potassium Chloride Carbon Dioxide BUN 46 H Creatinine 2.5 H Glucose 176 H POC Glucose 201 H 181 H Calcium Phosphorus Magnesium Iron TIBC Ferritin Total Bilirubin AST ALT Alkaline Phosphatase Total Creatine Kinase Troponin T C-Reactive Protein Total Protein Albumin Triglycerides HDL Cholesterol Miscellaneous Test Crossmatch 08/24/17 08/24/17 08/25/17 18:04 23:05 05:05 WBC RBC Hgb Hct MCV MCH MCHC RDW Plt Count Lymph % (Auto) [place] % (Auto) [place] # Seg Neutrophils % Seg Neuts % (Manual) Lymphocytes % (Manual) Monocytes % (Manual) Nucleated RBC % Seg Neutrophils # Seg Neutrophils # Man Lymphocytes # (Manual) Monocytes # (Manual) Eosinophils # (Manual) Basophils # (Manual) PT INR POC ABG pH ABG pH POC ABG pCO2 POC ABG pO2 ABG pO2 ABG O2 Saturation ABG Base Excess ABG Hemoglobin Oxyhemoglobin Sodium Potassium Chloride Carbon Dioxide BUN Creatinine Glucose POC Glucose 189 H 175 H 190 H Calcium Phosphorus Magnesium Iron TIBC Ferritin Total Bilirubin AST ALT Alkaline Phosphatase Total Creatine Kinase Troponin T C-Reactive Protein Total Protein Albumin Triglycerides HDL Cholesterol Miscellaneous Test Crossmatch 08/25/17 08/25/17 08/26/17 07:02 11:53 05:30 WBC 33.5 H RBC 2.47 L Hgb 7.3 L Hct 23.0 L MCV MCH MCHC RDW 21.3 H Plt Count Lymph % (Auto) [place] % (Auto) [place] # Seg Neutrophils % Seg Neuts % (Manual) 92.0 H Lymphocytes % (Manual) 1.0 L Monocytes % (Manual) Nucleated RBC % Seg Neutrophils # Seg Neutrophils # Man 30.8 H Lymphocytes # (Manual) 0.3 L Monocytes # (Manual) Eosinophils # (Manual) Basophils # (Manual) PT INR POC ABG pH ABG pH POC ABG pCO2 POC ABG pO2 ABG pO2 ABG O2 Saturation ABG Base Excess ABG Hemoglobin Oxyhemoglobin Sodium Potassium Chloride Carbon Dioxide BUN 32 H Creatinine 5.0 H D Glucose 117 H POC Glucose 191 H Calcium 8.0 L Phosphorus Magnesium Iron TIBC Ferritin Total Bilirubin AST ALT Alkaline Phosphatase Total Creatine Kinase Troponin T C-Reactive Protein Total Protein Albumin Triglycerides HDL Cholesterol Miscellaneous Test Crossmatch 08/26/17 08/26/17 08/26/17 05:30 06:44 13:26 WBC RBC Hgb Hct MCV MCH MCHC RDW Plt Count Lymph % (Auto) [place] % (Auto) [place] # Seg Neutrophils % Seg Neuts % (Manual) Lymphocytes % (Manual) Monocytes % (Manual) Nucleated RBC % Seg Neutrophils # Seg Neutrophils # Man Lymphocytes # (Manual) Monocytes # (Manual) Eosinophils # (Manual) Basophils # (Manual) PT INR POC ABG pH ABG pH POC ABG pCO2 POC ABG pO2 ABG pO2 ABG O2 Saturation ABG Base Excess ABG Hemoglobin Oxyhemoglobin Sodium Potassium 5.2 H Chloride Carbon Dioxide BUN 80 H Creatinine 3.4 H Glucose 193 H POC Glucose 232 H 207 H Calcium 8.3 L Phosphorus 6.80 H D Magnesium 2.60 H Iron TIBC Ferritin Total Bilirubin AST 135 H ALT Alkaline Phosphatase 211 H Total Creatine Kinase Troponin T C-Reactive Protein Total Protein 4.8 L Albumin 2.0 L Triglycerides HDL Cholesterol Miscellaneous Test Crossmatch 08/27/17 08/27/17 08/27/17 01:08 06:20 06:20 WBC 35.0 H RBC 2.75 L Hgb 8.4 L Hct 25.1 L MCV MCH MCHC RDW 21.8 H Plt Count Lymph % (Auto) [place] % (Auto) [place] # Seg Neutrophils % Seg Neuts % (Manual) Lymphocytes % (Manual) 4.5 L Monocytes % (Manual) Nucleated RBC % Seg Neutrophils # Seg Neutrophils # Man 31.9 H Lymphocytes # (Manual) Monocytes # (Manual) 1.2 H Eosinophils # (Manual) Basophils # (Manual) PT INR POC ABG pH ABG pH POC ABG pCO2 POC ABG pO2 ABG pO2 ABG O2 Saturation ABG Base Excess ABG Hemoglobin Oxyhemoglobin Sodium Potassium Chloride Carbon Dioxide BUN 61 H Creatinine 2.6 H Glucose 184 H POC Glucose 146 H Calcium Phosphorus 4.90 H D Magnesium Iron TIBC Ferritin Total Bilirubin AST ALT Alkaline Phosphatase Total Creatine Kinase Troponin T C-Reactive Protein Total Protein Albumin Triglycerides HDL Cholesterol Miscellaneous Test Crossmatch 08/27/17 08/27/17 08/27/17 07:01 09:17 12:52 WBC RBC Hgb Hct MCV MCH MCHC RDW Plt Count Lymph % (Auto) [place] % (Auto) [place] # Seg Neutrophils % Seg Neuts % (Manual) Lymphocytes % (Manual) Monocytes % (Manual) Nucleated RBC % Seg Neutrophils # Seg Neutrophils # Man Lymphocytes # (Manual) Monocytes # (Manual) Eosinophils # (Manual) Basophils # (Manual) PT INR POC ABG pH ABG pH POC ABG pCO2 POC ABG pO2 ABG pO2 ABG O2 Saturation ABG Base Excess ABG Hemoglobin Oxyhemoglobin Sodium Potassium Chloride Carbon Dioxide BUN Creatinine Glucose POC Glucose 165 H 198 H 218 H Calcium Phosphorus Magnesium Iron TIBC Ferritin Total Bilirubin AST ALT Alkaline Phosphatase Total Creatine Kinase Troponin T C-Reactive Protein Total Protein Albumin Triglycerides HDL Cholesterol Miscellaneous Test Crossmatch 08/27/17 08/28/17 08/28/17 17:27 02:13 06:46 WBC RBC Hgb Hct MCV MCH MCHC RDW Plt Count Lymph % (Auto) [place] % (Auto) [place] # Seg Neutrophils % Seg Neuts % (Manual) Lymphocytes % (Manual) Monocytes % (Manual) Nucleated RBC % Seg Neutrophils # Seg Neutrophils # Man Lymphocytes # (Manual) Monocytes # (Manual) Eosinophils # (Manual) Basophils # (Manual) PT INR POC ABG pH ABG pH POC ABG pCO2 POC ABG pO2 ABG pO2 ABG O2 Saturation ABG Base Excess ABG Hemoglobin Oxyhemoglobin Sodium Potassium Chloride Carbon Dioxide BUN Creatinine Glucose POC Glucose 151 H 155 H 230 H Calcium Phosphorus Magnesium Iron TIBC Ferritin Total Bilirubin AST ALT Alkaline Phosphatase Total Creatine Kinase Troponin T C-Reactive Protein Total Protein Albumin Triglycerides HDL Cholesterol Miscellaneous Test Crossmatch 08/28/17 08/28/17 08/28/17 06:53 06:53 08:19 WBC 31.1 H RBC 2.26 L Hgb 6.8 L Hct 20.9 L MCV MCH MCHC RDW 21.7 H Plt Count Lymph % (Auto) [place] % (Auto) [place] # Seg Neutrophils % Seg Neuts % (Manual) 83.0 H Lymphocytes % (Manual) 4.0 L Monocytes % (Manual) Nucleated RBC % Seg Neutrophils # Seg Neutrophils # Man 25.8 H Lymphocytes # (Manual) Monocytes # (Manual) Eosinophils # (Manual) Basophils # (Manual) PT INR POC ABG pH ABG pH POC ABG pCO2 POC ABG pO2 ABG pO2 ABG O2 Saturation ABG Base Excess ABG Hemoglobin Oxyhemoglobin Sodium Potassium Chloride Carbon Dioxide BUN 81 H Creatinine 3.4 H Glucose 218 H POC Glucose 239 H Calcium Phosphorus 4.90 H Magnesium Iron TIBC Ferritin Total Bilirubin AST ALT Alkaline Phosphatase Total Creatine Kinase Troponin T C-Reactive Protein Total Protein Albumin Triglycerides HDL Cholesterol Miscellaneous Test Crossmatch 08/28/17 08/28/17 08/28/17 11:56 13:05 13:29 WBC RBC Hgb Hct MCV MCH MCHC RDW Plt Count Lymph % (Auto) [place] % (Auto) [place] # Seg Neutrophils % Seg Neuts % (Manual) Lymphocytes % (Manual) Monocytes % (Manual) Nucleated RBC % Seg Neutrophils # Seg Neutrophils # Man Lymphocytes # (Manual) Monocytes # (Manual) Eosinophils # (Manual) Basophils # (Manual) PT 16.7 H INR 1.29 H POC ABG pH ABG pH POC ABG pCO2 POC ABG pO2 338 H ABG pO2 ABG O2 Saturation ABG Base Excess ABG Hemoglobin Oxyhemoglobin Sodium Potassium Chloride Carbon Dioxide BUN Creatinine Glucose POC Glucose Calcium Phosphorus Magnesium Iron TIBC Ferritin Total Bilirubin AST ALT Alkaline Phosphatase Total Creatine Kinase Troponin T C-Reactive Protein Total Protein Albumin Triglycerides HDL Cholesterol Miscellaneous Test Crossmatch See Detail 08/28/17 08/28/17 08/29/17 16:22 19:20 04:24 WBC RBC Hgb Hct MCV MCH MCHC RDW Plt Count Lymph % (Auto) [place] % (Auto) [place] # Seg Neutrophils % Seg Neuts % (Manual) Lymphocytes % (Manual) Monocytes % (Manual) Nucleated RBC % Seg Neutrophils # Seg Neutrophils # Man Lymphocytes # (Manual) Monocytes # (Manual) Eosinophils # (Manual) Basophils # (Manual) PT INR POC ABG pH 7.469 H ABG pH POC ABG pCO2 POC ABG pO2 240 H ABG pO2 ABG O2 Saturation ABG Base Excess ABG Hemoglobin Oxyhemoglobin Sodium Potassium Chloride Carbon Dioxide BUN Creatinine Glucose POC Glucose 209 H 195 H Calcium Phosphorus Magnesium Iron TIBC Ferritin Total Bilirubin AST ALT Alkaline Phosphatase Total Creatine Kinase Troponin T C-Reactive Protein Total Protein Albumin Triglycerides HDL Cholesterol Miscellaneous Test Crossmatch 08/29/17 08/29/17 08/29/17 04:30 04:30 12:07 WBC 44.9 H* RBC Hgb Hct MCV MCH MCHC RDW 23.1 H Plt Count Lymph % (Auto) [place] % (Auto) [place] # Seg Neutrophils % Seg Neuts % (Manual) 38.0 L Lymphocytes % (Manual) 10.0 L Monocytes % (Manual) 10.0 H Nucleated RBC % 6.0 H Seg Neutrophils # Seg Neutrophils # Man 17.1 H Lymphocytes # (Manual) Monocytes # (Manual) 4.5 H Eosinophils # (Manual) Basophils # (Manual) PT INR POC ABG pH ABG pH POC ABG pCO2 POC ABG pO2 ABG pO2 ABG O2 Saturation ABG Base Excess ABG Hemoglobin Oxyhemoglobin Sodium Potassium Chloride Carbon Dioxide BUN 61 H Creatinine 2.4 H Glucose 226 H POC Glucose 200 H Calcium Phosphorus Magnesium Iron TIBC Ferritin Total Bilirubin AST ALT Alkaline Phosphatase Total Creatine Kinase Troponin T C-Reactive Protein Total Protein Albumin Triglycerides HDL Cholesterol Miscellaneous Test Crossmatch 08/29/17 08/29/17 08/29/17 12:30 12:30 17:23 WBC RBC Hgb Hct MCV MCH MCHC RDW Plt Count Lymph % (Auto) [place] % (Auto) [place] # Seg Neutrophils % Seg Neuts % (Manual) Lymphocytes % (Manual) Monocytes % (Manual) Nucleated RBC % Seg Neutrophils # Seg Neutrophils # Man Lymphocytes # (Manual) Monocytes # (Manual) Eosinophils # (Manual) Basophils # (Manual) PT INR POC ABG pH ABG pH POC ABG pCO2 POC ABG pO2 ABG pO2 ABG O2 Saturation ABG Base Excess ABG Hemoglobin Oxyhemoglobin Sodium Potassium Chloride Carbon Dioxide BUN Creatinine Glucose POC Glucose 270 H Calcium Phosphorus Magnesium Iron TIBC Ferritin Total Bilirubin AST ALT Alkaline Phosphatase Total Creatine Kinase Troponin T C-Reactive Protein 19.10 H Total Protein Albumin Triglycerides HDL Cholesterol Miscellaneous Test Flexitest 1 H Crossmatch 08/30/17 08/30/17 08/30/17 00:10 01:30 03:31 WBC RBC Hgb Hct MCV MCH MCHC RDW Plt Count Lymph % (Auto) [place] % (Auto) [place] # Seg Neutrophils % Seg Neuts % (Manual) Lymphocytes % (Manual) Monocytes % (Manual) Nucleated RBC % Seg Neutrophils # Seg Neutrophils # Man Lymphocytes # (Manual) Monocytes # (Manual) Eosinophils # (Manual) Basophils # (Manual) PT INR POC ABG pH 7.168 L 7.335 L ABG pH POC ABG pCO2 72.8 H POC ABG pO2 257 H 117 H ABG pO2 ABG O2 Saturation ABG Base Excess ABG Hemoglobin Oxyhemoglobin Sodium Potassium Chloride Carbon Dioxide BUN Creatinine Glucose POC Glucose 245 H Calcium Phosphorus Magnesium Iron TIBC Ferritin Total Bilirubin AST ALT Alkaline Phosphatase Total Creatine Kinase Troponin T C-Reactive Protein Total Protein Albumin Triglycerides HDL Cholesterol Miscellaneous Test Crossmatch 08/30/17 08/30/17 08/30/17 05:20 05:20 05:20 WBC 40.9 H* RBC 3.64 L Hgb Hct MCV MCH MCHC RDW 24.3 H Plt Count Lymph % (Auto) [place] % (Auto) [place] # Seg Neutrophils % Seg Neuts % (Manual) 80.0 H Lymphocytes % (Manual) 3.0 L Monocytes % (Manual) Nucleated RBC % 1.0 H Seg Neutrophils # Seg Neutrophils # Man 32.7 H Lymphocytes # (Manual) Monocytes # (Manual) Eosinophils # (Manual) Basophils # (Manual) PT INR POC ABG pH ABG pH POC ABG pCO2 POC ABG pO2 ABG pO2 ABG O2 Saturation ABG Base Excess ABG Hemoglobin Oxyhemoglobin Sodium Potassium Chloride Carbon Dioxide BUN 83 H Creatinine 2.9 H Glucose 334 H POC Glucose 309 H Calcium Phosphorus Magnesium Iron TIBC Ferritin Total Bilirubin AST ALT Alkaline Phosphatase Total Creatine Kinase Troponin T C-Reactive Protein Total Protein Albumin Triglycerides HDL Cholesterol Miscellaneous Test Crossmatch 08/30/17 08/30/17 08/31/17 12:18 17:36 00:17 WBC RBC Hgb Hct MCV MCH MCHC RDW Plt Count Lymph % (Auto) [place] % (Auto) [place] # Seg Neutrophils % Seg Neuts % (Manual) Lymphocytes % (Manual) Monocytes % (Manual) Nucleated RBC % Seg Neutrophils # Seg Neutrophils # Man Lymphocytes # (Manual) Monocytes # (Manual) Eosinophils # (Manual) Basophils # (Manual) PT INR POC ABG pH ABG pH POC ABG pCO2 POC ABG pO2 ABG pO2 ABG O2 Saturation ABG Base Excess ABG Hemoglobin Oxyhemoglobin Sodium Potassium Chloride Carbon Dioxide BUN Creatinine Glucose POC Glucose 273 H 293 H 360 H Calcium Phosphorus Magnesium Iron TIBC Ferritin Total Bilirubin AST ALT Alkaline Phosphatase Total Creatine Kinase Troponin T C-Reactive Protein Total Protein Albumin Triglycerides HDL Cholesterol Miscellaneous Test Crossmatch 08/31/17 08/31/17 08/31/17 05:30 05:30 05:32 WBC 29.9 H RBC 2.89 L Hgb 8.2 L Hct 24.7 L D MCV MCH MCHC RDW 24.4 H Plt Count Lymph % (Auto) [place] % (Auto) [place] # Seg Neutrophils % Seg Neuts % (Manual) Lymphocytes % (Manual) 2.0 L Monocytes % (Manual) Nucleated RBC % 2.0 H Seg Neutrophils # Seg Neutrophils # Man 18.5 H Lymphocytes # (Manual) 0.6 L Monocytes # (Manual) 0.9 H Eosinophils # (Manual) Basophils # (Manual) PT INR POC ABG pH ABG pH POC ABG pCO2 POC ABG pO2 ABG pO2 ABG O2 Saturation ABG Base Excess ABG Hemoglobin Oxyhemoglobin Sodium Potassium Chloride Carbon Dioxide BUN 62 H Creatinine 2.2 H Glucose 245 H POC Glucose 257 H Calcium Phosphorus 2.10 L D Magnesium 1.60 L Iron TIBC Ferritin Total Bilirubin AST ALT Alkaline Phosphatase Total Creatine Kinase Troponin T C-Reactive Protein Total Protein Albumin Triglycerides HDL Cholesterol Miscellaneous Test Crossmatch 08/31/17 08/31/17 08/31/17 11:56 12:05 18:14 WBC 32.5 H RBC 3.19 L Hgb 8.8 L Hct 27.9 L MCV MCH MCHC RDW 24.9 H Plt Count Lymph % (Auto) [place] % (Auto) [place] # Seg Neutrophils % Seg Neuts % (Manual) Lymphocytes % (Manual) 1.0 L Monocytes % (Manual) 12.0 H Nucleated RBC % 1.0 H Seg Neutrophils # Seg Neutrophils # Man 13.3 H Lymphocytes # (Manual) 0.3 L Monocytes # (Manual) 3.9 H Eosinophils # (Manual) Basophils # (Manual) PT INR POC ABG pH ABG pH POC ABG pCO2 POC ABG pO2 ABG pO2 ABG O2 Saturation ABG Base Excess ABG Hemoglobin Oxyhemoglobin Sodium Potassium Chloride Carbon Dioxide BUN Creatinine Glucose POC Glucose 245 H Calcium Phosphorus Magnesium Iron TIBC Ferritin Total Bilirubin AST ALT Alkaline Phosphatase Total Creatine Kinase Troponin T C-Reactive Protein Total Protein Albumin Triglycerides HDL Cholesterol Miscellaneous Test Crossmatch See Detail 08/31/17 08/31/17 08/31/17 18:14 18:15 18:22 WBC RBC Hgb Hct MCV MCH MCHC RDW Plt Count Lymph % (Auto) [place] % (Auto) [place] # Seg Neutrophils % Seg Neuts % (Manual) Lymphocytes % (Manual) Monocytes % (Manual) Nucleated RBC % Seg Neutrophils # Seg Neutrophils # Man Lymphocytes # (Manual) Monocytes # (Manual) Eosinophils # (Manual) Basophils # (Manual) PT 15.1 H INR POC ABG pH ABG pH POC ABG pCO2 POC ABG pO2 ABG pO2 ABG O2 Saturation ABG Base Excess ABG Hemoglobin Oxyhemoglobin Sodium 136 L Potassium Chloride Carbon Dioxide 21 L BUN 69 H Creatinine 2.3 H Glucose 227 H POC Glucose 240 H Calcium Phosphorus 2.40 L Magnesium 1.50 L Iron TIBC Ferritin Total Bilirubin AST 143 H ALT 114 H Alkaline Phosphatase 267 H Total Creatine Kinase Troponin T C-Reactive Protein Total Protein 4.1 L Albumin 1.8 L Triglycerides HDL Cholesterol Miscellaneous Test Crossmatch 08/31/17 09/01/17 09/01/17 23:53 05:00 05:00 WBC 33.9 H RBC 2.85 L Hgb 7.8 L Hct 24.8 L MCV MCH 27 L MCHC RDW 23.9 H Plt Count Lymph % (Auto) [place] % (Auto) [place] # Seg Neutrophils % Seg Neuts % (Manual) Lymphocytes % (Manual) 5.0 L Monocytes % (Manual) Nucleated RBC % Seg Neutrophils # Seg Neutrophils # Man 23.1 H Lymphocytes # (Manual) Monocytes # (Manual) Eosinophils # (Manual) Basophils # (Manual) PT INR POC ABG pH ABG pH POC ABG pCO2 POC ABG pO2 ABG pO2 ABG O2 Saturation ABG Base Excess ABG Hemoglobin Oxyhemoglobin Sodium Potassium Chloride Carbon Dioxide BUN 51 H Creatinine 1.8 H Glucose 195 H POC Glucose 301 H Calcium Phosphorus 1.70 L D Magnesium 1.60 L Iron TIBC Ferritin Total Bilirubin AST 80 H ALT 82 H Alkaline Phosphatase 243 H Total Creatine Kinase Troponin T C-Reactive Protein Total Protein 4.2 L Albumin 1.7 L Triglycerides HDL Cholesterol Miscellaneous Test Crossmatch 09/01/17 09/01/17 09/01/17 05:20 05:47 11:37 WBC RBC Hgb Hct MCV MCH MCHC RDW Plt Count Lymph % (Auto) [place] % (Auto) [place] # Seg Neutrophils % Seg Neuts % (Manual) Lymphocytes % (Manual) Monocytes % (Manual) Nucleated RBC % Seg Neutrophils # Seg Neutrophils # Man Lymphocytes # (Manual) Monocytes # (Manual) Eosinophils # (Manual) Basophils # (Manual) PT INR POC ABG pH ABG pH 7.348 L POC ABG pCO2 POC ABG pO2 ABG pO2 70.2 L ABG O2 Saturation ABG Base Excess ABG Hemoglobin 7.5 L Oxyhemoglobin Sodium Potassium Chloride Carbon Dioxide BUN Creatinine Glucose POC Glucose 230 H 254 H Calcium Phosphorus Magnesium Iron TIBC Ferritin Total Bilirubin AST ALT Alkaline Phosphatase Total Creatine Kinase Troponin T C-Reactive Protein Total Protein Albumin Triglycerides HDL Cholesterol Miscellaneous Test Crossmatch 09/01/17 09/01/17 09/02/17 17:39 23:14 04:55 WBC RBC Hgb Hct MCV MCH MCHC RDW Plt Count Lymph % (Auto) [place] % (Auto) [place] # Seg Neutrophils % Seg Neuts % (Manual) Lymphocytes % (Manual) Monocytes % (Manual) Nucleated RBC % Seg Neutrophils # Seg Neutrophils # Man Lymphocytes # (Manual) Monocytes # (Manual) Eosinophils # (Manual) Basophils # (Manual) PT INR POC ABG pH ABG pH POC ABG pCO2 POC ABG pO2 ABG pO2 124.8 H ABG O2 Saturation ABG Base Excess -2.9 L ABG Hemoglobin 5.8 L Oxyhemoglobin Sodium Potassium Chloride Carbon Dioxide BUN Creatinine Glucose POC Glucose 297 H 291 H Calcium Phosphorus Magnesium Iron TIBC Ferritin Total Bilirubin AST ALT Alkaline Phosphatase Total Creatine Kinase Troponin T C-Reactive Protein Total Protein Albumin Triglycerides HDL Cholesterol Miscellaneous Test Crossmatch 09/02/17 09/02/17 09/02/17 05:31 06:10 11:58 WBC RBC Hgb Hct MCV MCH MCHC RDW Plt Count Lymph % (Auto) [place] % (Auto) [place] # Seg Neutrophils % Seg Neuts % (Manual) Lymphocytes % (Manual) Monocytes % (Manual) Nucleated RBC % Seg Neutrophils # Seg Neutrophils # Man Lymphocytes # (Manual) Monocytes # (Manual) Eosinophils # (Manual) Basophils # (Manual) PT INR POC ABG pH ABG pH POC ABG pCO2 POC ABG pO2 ABG pO2 ABG O2 Saturation ABG Base Excess ABG Hemoglobin Oxyhemoglobin Sodium Potassium Chloride Carbon Dioxide BUN 68 H Creatinine 2.2 H Glucose 369 H POC Glucose 245 H 333 H Calcium 8.2 L Phosphorus Magnesium Iron TIBC Ferritin Total Bilirubin AST ALT Alkaline Phosphatase Total Creatine Kinase Troponin T C-Reactive Protein Total Protein Albumin Triglycerides HDL Cholesterol Miscellaneous Test Crossmatch 09/02/17 09/02/17 09/03/17 15:37 23:50 04:00 WBC RBC Hgb Hct MCV MCH MCHC RDW Plt Count Lymph % (Auto) [place] % (Auto) [place] # Seg Neutrophils % Seg Neuts % (Manual) Lymphocytes % (Manual) Monocytes % (Manual) Nucleated RBC % Seg Neutrophils # Seg Neutrophils # Man Lymphocytes # (Manual) Monocytes # (Manual) Eosinophils # (Manual) Basophils # (Manual) PT INR POC ABG pH ABG pH POC ABG pCO2 POC ABG pO2 ABG pO2 ABG O2 Saturation ABG Base Excess ABG Hemoglobin Oxyhemoglobin Sodium Potassium Chloride Carbon Dioxide BUN 59 H Creatinine 1.9 H Glucose 231 H POC Glucose 314 H 240 H Calcium 8.0 L Phosphorus Magnesium Iron TIBC Ferritin Total Bilirubin AST ALT Alkaline Phosphatase 265 H Total Creatine Kinase Troponin T C-Reactive Protein Total Protein 4.4 L Albumin 1.7 L Triglycerides 180 H HDL Cholesterol Miscellaneous Test Crossmatch 09/03/17 09/03/17 09/03/17 05:00 05:32 11:52 WBC 41.5 H* RBC 2.46 L Hgb 6.9 L Hct 21.3 L MCV MCH MCHC RDW 24.9 H Plt Count Lymph % (Auto) [place] % (Auto) [place] # Seg Neutrophils % Seg Neuts % (Manual) Lymphocytes % (Manual) 3.0 L Monocytes % (Manual) 9.5 H Nucleated RBC % 1.5 H Seg Neutrophils # Seg Neutrophils # Man 28.8 H Lymphocytes # (Manual) Monocytes # (Manual) 3.9 H Eosinophils # (Manual) Basophils # (Manual) PT INR POC ABG pH ABG pH POC ABG pCO2 POC ABG pO2 ABG pO2 ABG O2 Saturation ABG Base Excess ABG Hemoglobin Oxyhemoglobin Sodium Potassium Chloride Carbon Dioxide BUN Creatinine Glucose POC Glucose 188 H 285 H Calcium Phosphorus Magnesium Iron TIBC Ferritin Total Bilirubin AST ALT Alkaline Phosphatase Total Creatine Kinase Troponin T C-Reactive Protein Total Protein Albumin Triglycerides HDL Cholesterol Miscellaneous Test Crossmatch 09/03/17 09/03/17 09/03/17 16:55 17:44 23:56 WBC RBC Hgb Hct MCV MCH MCHC RDW Plt Count Lymph % (Auto) [place] % (Auto) [place] # Seg Neutrophils % Seg Neuts % (Manual) Lymphocytes % (Manual) Monocytes % (Manual) Nucleated RBC % Seg Neutrophils # Seg Neutrophils # Man Lymphocytes # (Manual) Monocytes # (Manual) Eosinophils # (Manual) Basophils # (Manual) PT INR POC ABG pH ABG pH POC ABG pCO2 POC ABG pO2 ABG pO2 ABG O2 Saturation ABG Base Excess ABG Hemoglobin Oxyhemoglobin Sodium Potassium Chloride Carbon Dioxide BUN Creatinine Glucose POC Glucose 217 H 193 H Calcium Phosphorus Magnesium Iron TIBC Ferritin Total Bilirubin AST ALT Alkaline Phosphatase Total Creatine Kinase Troponin T C-Reactive Protein Total Protein Albumin Triglycerides HDL Cholesterol Miscellaneous Test Crossmatch See Detail 09/03/17 09/04/17 09/04/17 Unknown 03:47 04:32 WBC 44.7 H* RBC 3.12 L Hgb 8.7 L Hct 26.7 L MCV MCH MCHC RDW 23.5 H Plt Count Lymph % (Auto) [place] % (Auto) [place] # Seg Neutrophils % Seg Neuts % (Manual) Lymphocytes % (Manual) 4.0 L Monocytes % (Manual) Nucleated RBC % 2.0 H Seg Neutrophils # Seg Neutrophils # Man 30.8 H Lymphocytes # (Manual) Monocytes # (Manual) 2.2 H Eosinophils # (Manual) Basophils # (Manual) PT INR POC ABG pH ABG pH POC ABG pCO2 POC ABG pO2 ABG pO2 133.4 H 135.0 H ABG O2 Saturation ABG Base Excess -2.5 L ABG Hemoglobin 5.8 L 7.9 L Oxyhemoglobin Sodium Potassium Chloride Carbon Dioxide BUN Creatinine Glucose POC Glucose Calcium Phosphorus Magnesium Iron TIBC Ferritin Total Bilirubin AST ALT Alkaline Phosphatase Total Creatine Kinase Troponin T C-Reactive Protein Total Protein Albumin Triglycerides HDL Cholesterol Miscellaneous Test Crossmatch 09/04/17 09/04/17 09/04/17 04:32 05:48 10:43 WBC RBC Hgb Hct MCV MCH MCHC RDW Plt Count Lymph % (Auto) [place] % (Auto) [place] # Seg Neutrophils % Seg Neuts % (Manual) Lymphocytes % (Manual) Monocytes % (Manual) Nucleated RBC % Seg Neutrophils # Seg Neutrophils # Man Lymphocytes # (Manual) Monocytes # (Manual) Eosinophils # (Manual) Basophils # (Manual) PT INR POC ABG pH ABG pH POC ABG pCO2 POC ABG pO2 ABG pO2 ABG O2 Saturation ABG Base Excess ABG Hemoglobin Oxyhemoglobin Sodium 136 L Potassium 5.2 H D Chloride 94.2 L Carbon Dioxide BUN 71 H Creatinine 2.3 H Glucose 235 H POC Glucose 329 H Calcium 8.3 L Phosphorus Magnesium Iron TIBC Ferritin Total Bilirubin AST ALT Alkaline Phosphatase Total Creatine Kinase Troponin T C-Reactive Protein Total Protein Albumin Triglycerides HDL Cholesterol Miscellaneous Test Flexitest 1 H Crossmatch 09/04/17 09/04/17 09/05/17 12:38 17:30 00:15 WBC RBC Hgb Hct MCV MCH MCHC RDW Plt Count Lymph % (Auto) [place] % (Auto) [place] # Seg Neutrophils % Seg Neuts % (Manual) Lymphocytes % (Manual) Monocytes % (Manual) Nucleated RBC % Seg Neutrophils # Seg Neutrophils # Man Lymphocytes # (Manual) Monocytes # (Manual) Eosinophils # (Manual) Basophils # (Manual) PT INR POC ABG pH ABG pH POC ABG pCO2 POC ABG pO2 ABG pO2 ABG O2 Saturation ABG Base Excess ABG Hemoglobin Oxyhemoglobin Sodium Potassium Chloride Carbon Dioxide BUN Creatinine Glucose POC Glucose 444 H 331 H 362 H Calcium Phosphorus Magnesium Iron TIBC Ferritin Total Bilirubin AST ALT Alkaline Phosphatase Total Creatine Kinase Troponin T C-Reactive Protein Total Protein Albumin Triglycerides HDL Cholesterol Miscellaneous Test Crossmatch 1009/05/17 09/05/17 03:55 03:55 12:12 WBC 35.3 H RBC 2.87 L Hgb 8.1 L Hct 24.6 L MCV MCH MCHC RDW 23.3 H Plt Count Lymph % (Auto) [place] % (Auto) [place] # Seg Neutrophils % Seg Neuts % (Manual) 89.5 H Lymphocytes % (Manual) 3.0 L Monocytes % (Manual) Nucleated RBC % 2.5 H Seg Neutrophils # Seg Neutrophils # Man 31.6 H Lymphocytes # (Manual) 1.1 L Monocytes # (Manual) Eosinophils # (Manual) Basophils # (Manual) PT INR POC ABG pH ABG pH POC ABG pCO2 POC ABG pO2 ABG pO2 ABG O2 Saturation ABG Base Excess ABG Hemoglobin Oxyhemoglobin Sodium 136 L Potassium Chloride 94.7 L Carbon Dioxide BUN 55 H Creatinine 1.8 H Glucose 193 H POC Glucose 344 H Calcium 8.1 L Phosphorus Magnesium Iron TIBC Ferritin Total Bilirubin AST ALT Alkaline Phosphatase Total Creatine Kinase Troponin T C-Reactive Protein Total Protein Albumin Triglycerides HDL Cholesterol Miscellaneous Test Crossmatch 09/05/17 09/05/17 09/05/17 14:32 15:32 16:41 WBC RBC Hgb Hct MCV MCH MCHC RDW Plt Count Lymph % (Auto) [place] % (Auto) [place] # Seg Neutrophils % Seg Neuts % (Manual) Lymphocytes % (Manual) Monocytes % (Manual) Nucleated RBC % Seg Neutrophils # Seg Neutrophils # Man Lymphocytes # (Manual) Monocytes # (Manual) Eosinophils # (Manual) Basophils # (Manual) PT INR POC ABG pH ABG pH POC ABG pCO2 POC ABG pO2 ABG pO2 ABG O2 Saturation ABG Base Excess ABG Hemoglobin Oxyhemoglobin Sodium Potassium Chloride Carbon Dioxide BUN Creatinine Glucose POC Glucose 265 H 145 H 188 H Calcium Phosphorus Magnesium Iron TIBC Ferritin Total Bilirubin AST ALT Alkaline Phosphatase Total Creatine Kinase Troponin T C-Reactive Protein Total Protein Albumin Triglycerides HDL Cholesterol Miscellaneous Test Crossmatch 09/05/17 09/05/17 09/05/17 17:28 18:38 20:10 WBC RBC Hgb Hct MCV MCH MCHC RDW Plt Count Lymph % (Auto) [place] % (Auto) [place] # Seg Neutrophils % Seg Neuts % (Manual) Lymphocytes % (Manual) Monocytes % (Manual) Nucleated RBC % Seg Neutrophils # Seg Neutrophils # Man Lymphocytes # (Manual) Monocytes # (Manual) Eosinophils # (Manual) Basophils # (Manual) PT INR POC ABG pH ABG pH POC ABG pCO2 POC ABG pO2 ABG pO2 ABG O2 Saturation ABG Base Excess ABG Hemoglobin Oxyhemoglobin Sodium Potassium Chloride Carbon Dioxide BUN Creatinine Glucose POC Glucose 246 H 271 H 165 H Calcium Phosphorus Magnesium Iron TIBC Ferritin Total Bilirubin AST ALT Alkaline Phosphatase Total Creatine Kinase Troponin T C-Reactive Protein Total Protein Albumin Triglycerides HDL Cholesterol Miscellaneous Test Crossmatch 09/05/17 09/05/17 09/06/17 21:06 23:07 00:10 WBC RBC Hgb Hct MCV MCH MCHC RDW Plt Count Lymph % (Auto) [place] % (Auto) [place] # Seg Neutrophils % Seg Neuts % (Manual) Lymphocytes % (Manual) Monocytes % (Manual) Nucleated RBC % Seg Neutrophils # Seg Neutrophils # Man Lymphocytes # (Manual) Monocytes # (Manual) Eosinophils # (Manual) Basophils # (Manual) PT INR POC ABG pH ABG pH POC ABG pCO2 POC ABG pO2 ABG pO2 ABG O2 Saturation ABG Base Excess ABG Hemoglobin Oxyhemoglobin Sodium Potassium Chloride Carbon Dioxide BUN Creatinine Glucose POC Glucose 134 H 135 H 147 H Calcium Phosphorus Magnesium Iron TIBC Ferritin Total Bilirubin AST ALT Alkaline Phosphatase Total Creatine Kinase Troponin T C-Reactive Protein Total Protein Albumin Triglycerides HDL Cholesterol Miscellaneous Test Crossmatch 09/06/17 09/06/17 09/06/17 01:08 02:01 03:08 WBC RBC Hgb Hct MCV MCH MCHC RDW Plt Count Lymph % (Auto) [place] % (Auto) [place] # Seg Neutrophils % Seg Neuts % (Manual) Lymphocytes % (Manual) Monocytes % (Manual) Nucleated RBC % Seg Neutrophils # Seg Neutrophils # Man Lymphocytes # (Manual) Monocytes # (Manual) Eosinophils # (Manual) Basophils # (Manual) PT INR POC ABG pH ABG pH POC ABG pCO2 POC ABG pO2 ABG pO2 ABG O2 Saturation ABG Base Excess ABG Hemoglobin Oxyhemoglobin Sodium Potassium Chloride Carbon Dioxide BUN Creatinine Glucose POC Glucose 133 H 146 H 135 H Calcium Phosphorus Magnesium Iron TIBC Ferritin Total Bilirubin AST ALT Alkaline Phosphatase Total Creatine Kinase Troponin T C-Reactive Protein Total Protein Albumin Triglycerides HDL Cholesterol Miscellaneous Test Crossmatch 09/06/17 09/06/17 09/06/17 05:30 05:30 05:30 WBC 38.6 H RBC 2.95 L Hgb 8.3 L Hct 25.3 L MCV MCH MCHC RDW 22.2 H Plt Count Lymph % (Auto) [place] % (Auto) [place] # Seg Neutrophils % Seg Neuts % (Manual) Lymphocytes % (Manual) 2.0 L Monocytes % (Manual) Nucleated RBC % 5.0 H Seg Neutrophils # Seg Neutrophils # Man 25.9 H Lymphocytes # (Manual) 0.8 L Monocytes # (Manual) 1.9 H Eosinophils # (Manual) Basophils # (Manual) PT INR POC ABG pH ABG pH POC ABG pCO2 POC ABG pO2 ABG pO2 ABG O2 Saturation ABG Base Excess ABG Hemoglobin Oxyhemoglobin Sodium 135 L Potassium Chloride 93.5 L Carbon Dioxide BUN 82 H Creatinine 2.3 H Glucose 148 H POC Glucose Calcium Phosphorus Magnesium Iron TIBC Ferritin Total Bilirubin AST ALT Alkaline Phosphatase Total Creatine Kinase Troponin T C-Reactive Protein 2.80 H Total Protein Albumin Triglycerides HDL Cholesterol Miscellaneous Test Crossmatch 09/06/17 09/06/17 09/06/17 05:48 08:04 09:06 WBC RBC Hgb Hct MCV MCH MCHC RDW Plt Count Lymph % (Auto) [place] % (Auto) [place] # Seg Neutrophils % Seg Neuts % (Manual) Lymphocytes % (Manual) Monocytes % (Manual) Nucleated RBC % Seg Neutrophils # Seg Neutrophils # Man Lymphocytes # (Manual) Monocytes # (Manual) Eosinophils # (Manual) Basophils # (Manual) PT INR POC ABG pH ABG pH POC ABG pCO2 POC ABG pO2 ABG pO2 ABG O2 Saturation ABG Base Excess ABG Hemoglobin Oxyhemoglobin Sodium Potassium Chloride Carbon Dioxide BUN Creatinine Glucose POC Glucose 152 H 164 H 172 H Calcium Phosphorus Magnesium Iron TIBC Ferritin Total Bilirubin AST ALT Alkaline Phosphatase Total Creatine Kinase Troponin T C-Reactive Protein Total Protein Albumin Triglycerides HDL Cholesterol Miscellaneous Test Crossmatch 09/06/17 09/06/17 09/06/17 09:57 10:19 10:57 WBC RBC Hgb Hct MCV MCH MCHC RDW Plt Count Lymph % (Auto) [place] % (Auto) [place] # Seg Neutrophils % Seg Neuts % (Manual) Lymphocytes % (Manual) Monocytes % (Manual) Nucleated RBC % Seg Neutrophils # Seg Neutrophils # Man Lymphocytes # (Manual) Monocytes # (Manual) Eosinophils # (Manual) Basophils # (Manual) PT INR POC ABG pH ABG pH POC ABG pCO2 POC ABG pO2 ABG pO2 ABG O2 Saturation ABG Base Excess ABG Hemoglobin Oxyhemoglobin Sodium Potassium Chloride Carbon Dioxide BUN Creatinine Glucose POC Glucose 186 H 162 H Calcium Phosphorus Magnesium Iron TIBC Ferritin Total Bilirubin AST ALT Alkaline Phosphatase Total Creatine Kinase Troponin T C-Reactive Protein Total Protein Albumin Triglycerides HDL Cholesterol Miscellaneous Test Flexitest 1 H Crossmatch 09/06/17 09/06/17 09/06/17 13:12 13:40 17:36 WBC RBC Hgb 8.9 L Hct 28.5 L MCV MCH MCHC RDW Plt Count Lymph % (Auto) [place] % (Auto) [place] # Seg Neutrophils % Seg Neuts % (Manual) Lymphocytes % (Manual) Monocytes % (Manual) Nucleated RBC % Seg Neutrophils # Seg Neutrophils # Man Lymphocytes # (Manual) Monocytes # (Manual) Eosinophils # (Manual) Basophils # (Manual) PT INR POC ABG pH ABG pH POC ABG pCO2 POC ABG pO2 ABG pO2 ABG O2 Saturation ABG Base Excess ABG Hemoglobin Oxyhemoglobin Sodium Potassium Chloride Carbon Dioxide BUN Creatinine Glucose POC Glucose 166 H 161 H Calcium Phosphorus Magnesium Iron TIBC Ferritin Total Bilirubin AST ALT Alkaline Phosphatase Total Creatine Kinase Troponin T C-Reactive Protein Total Protein Albumin Triglycerides HDL Cholesterol Miscellaneous Test Crossmatch 09/07/17 09/07/17 09/07/17 00:13 03:50 03:50 WBC 47.0 H* RBC 2.81 L Hgb 8.1 L Hct 24.1 L MCV MCH MCHC RDW 22.5 H Plt Count Lymph % (Auto) [place] % (Auto) [place] # Seg Neutrophils % Seg Neuts % (Manual) Lymphocytes % (Manual) 9.0 L Monocytes % (Manual) Nucleated RBC % 6.0 H Seg Neutrophils # Seg Neutrophils # Man 27.3 H Lymphocytes # (Manual) Monocytes # (Manual) 0.9 H Eosinophils # (Manual) 1.9 H Basophils # (Manual) PT INR POC ABG pH ABG pH POC ABG pCO2 POC ABG pO2 ABG pO2 ABG O2 Saturation ABG Base Excess ABG Hemoglobin Oxyhemoglobin Sodium 136 L Potassium Chloride 96.3 L Carbon Dioxide BUN 61 H Creatinine 1.7 H Glucose 132 H POC Glucose 183 H Calcium 7.8 L Phosphorus Magnesium Iron TIBC Ferritin Total Bilirubin AST ALT Alkaline Phosphatase Total Creatine Kinase Troponin T C-Reactive Protein Total Protein Albumin Triglycerides HDL Cholesterol Miscellaneous Test Crossmatch 09/07/17 09/07/17 09/07/17 05:12 05:23 11:48 WBC RBC Hgb Hct MCV MCH MCHC RDW Plt Count Lymph % (Auto) [place] % (Auto) [place] # Seg Neutrophils % Seg Neuts % (Manual) Lymphocytes % (Manual) Monocytes % (Manual) Nucleated RBC % Seg Neutrophils # Seg Neutrophils # Man Lymphocytes # (Manual) Monocytes # (Manual) Eosinophils # (Manual) Basophils # (Manual) PT INR POC ABG pH ABG pH POC ABG pCO2 POC ABG pO2 ABG pO2 ABG O2 Saturation ABG Base Excess ABG Hemoglobin 7.7 L Oxyhemoglobin 94.8 L Sodium Potassium Chloride Carbon Dioxide BUN Creatinine Glucose POC Glucose 162 H 200 H Calcium Phosphorus Magnesium Iron TIBC Ferritin Total Bilirubin AST ALT Alkaline Phosphatase Total Creatine Kinase Troponin T C-Reactive Protein Total Protein Albumin Triglycerides HDL Cholesterol Miscellaneous Test Crossmatch 09/07/17 09/07/17 09/08/17 17:07 18:21 00:06 WBC RBC Hgb Hct MCV MCH MCHC RDW Plt Count Lymph % (Auto) [place] % (Auto) [place] # Seg Neutrophils % Seg Neuts % (Manual) Lymphocytes % (Manual) Monocytes % (Manual) Nucleated RBC % Seg Neutrophils # Seg Neutrophils # Man Lymphocytes # (Manual) Monocytes # (Manual) Eosinophils # (Manual) Basophils # (Manual) PT INR POC ABG pH ABG pH POC ABG pCO2 POC ABG pO2 ABG pO2 ABG O2 Saturation ABG Base Excess ABG Hemoglobin Oxyhemoglobin Sodium Potassium Chloride Carbon Dioxide BUN Creatinine Glucose POC Glucose 181 H 168 H Calcium Phosphorus Magnesium Iron TIBC Ferritin Total Bilirubin AST ALT Alkaline Phosphatase Total Creatine Kinase Troponin T C-Reactive Protein Total Protein Albumin Triglycerides HDL Cholesterol Miscellaneous Test Crossmatch See Detail 09/08/17 09/08/17 09/08/17 04:05 04:05 04:41 WBC 49.7 H* RBC 2.58 L Hgb 7.3 L Hct 22.7 L MCV MCH MCHC RDW 22.5 H Plt Count Lymph % (Auto) [place] % (Auto) [place] # Seg Neutrophils % Seg Neuts % (Manual) 90.5 H Lymphocytes % (Manual) 1.5 L Monocytes % (Manual) Nucleated RBC % Seg Neutrophils # Seg Neutrophils # Man 45.0 H Lymphocytes # (Manual) 0.7 L Monocytes # (Manual) 1.7 H Eosinophils # (Manual) Basophils # (Manual) PT INR POC ABG pH ABG pH POC ABG pCO2 POC ABG pO2 ABG pO2 ABG O2 Saturation ABG Base Excess ABG Hemoglobin Oxyhemoglobin Sodium 132 L Potassium Chloride 92.1 L Carbon Dioxide BUN 82 H Creatinine 2.2 H Glucose 162 H POC Glucose 235 H Calcium 8.3 L Phosphorus 5.20 H D Magnesium Iron TIBC Ferritin Total Bilirubin AST ALT Alkaline Phosphatase 199 H Total Creatine Kinase Troponin T C-Reactive Protein Total Protein 4.5 L Albumin 1.7 L Triglycerides HDL Cholesterol Miscellaneous Test Crossmatch 09/08/17 09/08/17 09/08/17 09:21 11:52 17:38 WBC RBC Hgb Hct MCV MCH MCHC RDW Plt Count Lymph % (Auto) [place] % (Auto) [place] # Seg Neutrophils % Seg Neuts % (Manual) Lymphocytes % (Manual) Monocytes % (Manual) Nucleated RBC % Seg Neutrophils # Seg Neutrophils # Man Lymphocytes # (Manual) Monocytes # (Manual) Eosinophils # (Manual) Basophils # (Manual) PT INR POC ABG pH ABG pH POC ABG pCO2 POC ABG pO2 ABG pO2 218.5 H ABG O2 Saturation 99.3 H ABG Base Excess -3.5 L ABG Hemoglobin 7.7 L Oxyhemoglobin Sodium Potassium Chloride Carbon Dioxide BUN Creatinine Glucose POC Glucose 220 H 194 H Calcium Phosphorus Magnesium Iron TIBC Ferritin Total Bilirubin AST ALT Alkaline Phosphatase Total Creatine Kinase Troponin T C-Reactive Protein Total Protein Albumin Triglycerides HDL Cholesterol Miscellaneous Test Crossmatch 09/09/17 09/09/17 09/09/17 00:24 03:37 03:37 WBC 33.5 H RBC 2.36 L Hgb 6.7 L Hct 20.9 L MCV MCH MCHC RDW 22.7 H Plt Count Lymph % (Auto) [place] % (Auto) [place] # Seg Neutrophils % Seg Neuts % (Manual) Lymphocytes % (Manual) Monocytes % (Manual) Nucleated RBC % Seg Neutrophils # Seg Neutrophils # Man Lymphocytes # (Manual) Monocytes # (Manual) Eosinophils # (Manual) Basophils # (Manual) PT INR POC ABG pH ABG pH POC ABG pCO2 POC ABG pO2 ABG pO2 ABG O2 Saturation ABG Base Excess ABG Hemoglobin Oxyhemoglobin Sodium 132 L Potassium Chloride 91.6 L Carbon Dioxide 21 L BUN 101 H Creatinine 2.6 H Glucose 156 H POC Glucose 182 H Calcium 8.3 L Phosphorus 5.90 H Magnesium 2.60 H Iron TIBC Ferritin Total Bilirubin AST ALT Alkaline Phosphatase Total Creatine Kinase Troponin T C-Reactive Protein Total Protein Albumin Triglycerides HDL Cholesterol Miscellaneous Test Crossmatch 09/09/17 09/09/17 09/09/17 05:29 12:03 18:05 WBC RBC Hgb Hct MCV MCH MCHC RDW Plt Count Lymph % (Auto) [place] % (Auto) [place] # Seg Neutrophils % Seg Neuts % (Manual) Lymphocytes % (Manual) Monocytes % (Manual) Nucleated RBC % Seg Neutrophils # Seg Neutrophils # Man Lymphocytes # (Manual) Monocytes # (Manual) Eosinophils # (Manual) Basophils # (Manual) PT INR POC ABG pH ABG pH POC ABG pCO2 POC ABG pO2 ABG pO2 ABG O2 Saturation ABG Base Excess ABG Hemoglobin Oxyhemoglobin Sodium Potassium Chloride Carbon Dioxide BUN Creatinine Glucose POC Glucose 168 H 143 H 173 H Calcium Phosphorus Magnesium Iron TIBC Ferritin Total Bilirubin AST ALT Alkaline Phosphatase Total Creatine Kinase Troponin T C-Reactive Protein Total Protein Albumin Triglycerides HDL Cholesterol Miscellaneous Test Crossmatch 09/09/17 09/09/17 09/10/17 23:30 Unknown 05:04 WBC RBC Hgb Hct MCV MCH MCHC RDW Plt Count Lymph % (Auto) [place] % (Auto) [place] # Seg Neutrophils % Seg Neuts % (Manual) Lymphocytes % (Manual) Monocytes % (Manual) Nucleated RBC % Seg Neutrophils # Seg Neutrophils # Man Lymphocytes # (Manual) Monocytes # (Manual) Eosinophils # (Manual) Basophils # (Manual) PT INR POC ABG pH ABG pH 7.323 L POC ABG pCO2 POC ABG pO2 ABG pO2 94.1 H ABG O2 Saturation ABG Base Excess -4.8 L ABG Hemoglobin 8.0 L Oxyhemoglobin 94.9 L Sodium Potassium Chloride Carbon Dioxide BUN Creatinine Glucose POC Glucose 212 H 155 H Calcium Phosphorus Magnesium Iron TIBC Ferritin Total Bilirubin AST ALT Alkaline Phosphatase Total Creatine Kinase Troponin T C-Reactive Protein Total Protein Albumin Triglycerides HDL Cholesterol Miscellaneous Test Crossmatch 09/10/17 09/10/17 09/10/17 07:00 09:55 12:22 WBC 24.7 H RBC 2.62 L Hgb 7.5 L Hct 22.5 L MCV MCH MCHC RDW 20.8 H Plt Count Lymph % (Auto) [place] % (Auto) [place] # Seg Neutrophils % Seg Neuts % (Manual) Lymphocytes % (Manual) Monocytes % (Manual) Nucleated RBC % Seg Neutrophils # Seg Neutrophils # Man Lymphocytes # (Manual) Monocytes # (Manual) Eosinophils # (Manual) Basophils # (Manual) PT INR POC ABG pH ABG pH POC ABG pCO2 POC ABG pO2 ABG pO2 ABG O2 Saturation ABG Base Excess ABG Hemoglobin Oxyhemoglobin Sodium Potassium Chloride 97.9 L Carbon Dioxide BUN 78 H Creatinine 2.0 H Glucose 126 H POC Glucose 183 H Calcium 8.2 L Phosphorus Magnesium Iron TIBC Ferritin Total Bilirubin AST ALT Alkaline Phosphatase Total Creatine Kinase Troponin T C-Reactive Protein Total Protein Albumin Triglycerides HDL Cholesterol Miscellaneous Test Crossmatch 09/11/17 09/11/17 09/11/17 00:08 03:50 05:28 WBC 21.6 H RBC 2.52 L Hgb 7.4 L Hct 22.2 L MCV MCH MCHC RDW 21.5 H Plt Count Lymph % (Auto) [place] % (Auto) [place] # Seg Neutrophils % Seg Neuts % (Manual) 92.0 H Lymphocytes % (Manual) 3.0 L Monocytes % (Manual) Nucleated RBC % Seg Neutrophils # Seg Neutrophils # Man 19.9 H Lymphocytes # (Manual) 0.6 L Monocytes # (Manual) Eosinophils # (Manual) Basophils # (Manual) PT INR POC ABG pH ABG pH POC ABG pCO2 POC ABG pO2 ABG pO2 ABG O2 Saturation ABG Base Excess ABG Hemoglobin Oxyhemoglobin Sodium Potassium Chloride Carbon Dioxide BUN Creatinine Glucose POC Glucose 213 H 181 H Calcium Phosphorus Magnesium Iron TIBC Ferritin Total Bilirubin AST ALT Alkaline Phosphatase Total Creatine Kinase Troponin T C-Reactive Protein Total Protein Albumin Triglycerides HDL Cholesterol Miscellaneous Test Crossmatch 09/11/17 09/11/17 09/11/17 11:55 17:56 23:12 WBC RBC Hgb Hct MCV MCH MCHC RDW Plt Count Lymph % (Auto) [place] % (Auto) [place] # Seg Neutrophils % Seg Neuts % (Manual) Lymphocytes % (Manual) Monocytes % (Manual) Nucleated RBC % Seg Neutrophils # Seg Neutrophils # Man Lymphocytes # (Manual) Monocytes # (Manual) Eosinophils # (Manual) Basophils # (Manual) PT INR POC ABG pH ABG pH POC ABG pCO2 POC ABG pO2 ABG pO2 ABG O2 Saturation ABG Base Excess ABG Hemoglobin Oxyhemoglobin Sodium Potassium Chloride Carbon Dioxide 21 L BUN 80 H Creatinine 2.1 H Glucose 170 H POC Glucose 277 H 206 H Calcium 8.0 L Phosphorus Magnesium Iron TIBC Ferritin Total Bilirubin AST ALT Alkaline Phosphatase Total Creatine Kinase Troponin T C-Reactive Protein Total Protein Albumin Triglycerides HDL Cholesterol Miscellaneous Test Crossmatch 09/11/17 09/12/17 09/12/17 23:36 05:25 05:25 WBC 17.4 H RBC 2.29 L Hgb 6.7 L Hct 20.4 L MCV MCH MCHC RDW 21.2 H Plt Count Lymph % (Auto) [place] % (Auto) [place] # Seg Neutrophils % Seg Neuts % (Manual) 79.0 H Lymphocytes % (Manual) 5.0 L Monocytes % (Manual) Nucleated RBC % 1.0 H Seg Neutrophils # Seg Neutrophils # Man 13.7 H Lymphocytes # (Manual) 0.9 L Monocytes # (Manual) 1.2 H Eosinophils # (Manual) Basophils # (Manual) PT INR POC ABG pH ABG pH POC ABG pCO2 POC ABG pO2 ABG pO2 ABG O2 Saturation ABG Base Excess ABG Hemoglobin Oxyhemoglobin Sodium Potassium Chloride Carbon Dioxide BUN Creatinine Glucose POC Glucose 190 H Calcium Phosphorus Magnesium Iron 22 L TIBC 81 L Ferritin Total Bilirubin AST ALT Alkaline Phosphatase Total Creatine Kinase Troponin T C-Reactive Protein Total Protein Albumin Triglycerides HDL Cholesterol Miscellaneous Test Crossmatch 09/12/17 09/12/17 09/12/17 05:25 05:36 09:14 WBC RBC Hgb Hct MCV MCH MCHC RDW Plt Count Lymph % (Auto) [place] % (Auto) [place] # Seg Neutrophils % Seg Neuts % (Manual) Lymphocytes % (Manual) Monocytes % (Manual) Nucleated RBC % Seg Neutrophils # Seg Neutrophils # Man Lymphocytes # (Manual) Monocytes # (Manual) Eosinophils # (Manual) Basophils # (Manual) PT INR POC ABG pH ABG pH POC ABG pCO2 POC ABG pO2 ABG pO2 ABG O2 Saturation ABG Base Excess ABG Hemoglobin Oxyhemoglobin Sodium Potassium Chloride Carbon Dioxide BUN Creatinine Glucose POC Glucose 141 H Calcium Phosphorus Magnesium Iron TIBC Ferritin > 2000.0 H Total Bilirubin AST ALT Alkaline Phosphatase Total Creatine Kinase Troponin T C-Reactive Protein Total Protein Albumin Triglycerides HDL Cholesterol Miscellaneous Test Crossmatch See Detail 09/12/17 09/12/17 09/12/17 11:18 15:22 17:18 WBC RBC Hgb 8.5 L Hct 25.4 L MCV MCH MCHC RDW Plt Count Lymph % (Auto) [place] % (Auto) [place] # Seg Neutrophils % Seg Neuts % (Manual) Lymphocytes % (Manual) Monocytes % (Manual) Nucleated RBC % Seg Neutrophils # Seg Neutrophils # Man Lymphocytes # (Manual) Monocytes # (Manual) Eosinophils # (Manual) Basophils # (Manual) PT INR POC ABG pH ABG pH POC ABG pCO2 POC ABG pO2 ABG pO2 ABG O2 Saturation ABG Base Excess ABG Hemoglobin Oxyhemoglobin Sodium Potassium Chloride Carbon Dioxide BUN Creatinine Glucose POC Glucose 262 H 193 H Calcium Phosphorus Magnesium Iron TIBC Ferritin Total Bilirubin AST ALT Alkaline Phosphatase Total Creatine Kinase Troponin T C-Reactive Protein Total Protein Albumin Triglycerides HDL Cholesterol Miscellaneous Test Crossmatch 09/13/17 09/13/17 09/13/17 00:05 06:25 11:36 WBC RBC Hgb Hct MCV MCH MCHC RDW Plt Count Lymph % (Auto) [place] % (Auto) [place] # Seg Neutrophils % Seg Neuts % (Manual) Lymphocytes % (Manual) Monocytes % (Manual) Nucleated RBC % Seg Neutrophils # Seg Neutrophils # Man Lymphocytes # (Manual) Monocytes # (Manual) Eosinophils # (Manual) Basophils # (Manual) PT INR POC ABG pH 7.347 L ABG pH POC ABG pCO2 34.3 L POC ABG pO2 134 H ABG pO2 ABG O2 Saturation ABG Base Excess ABG Hemoglobin Oxyhemoglobin Sodium Potassium Chloride Carbon Dioxide BUN Creatinine Glucose POC Glucose 235 H 286 H Calcium Phosphorus Magnesium Iron TIBC Ferritin Total Bilirubin AST ALT Alkaline Phosphatase Total Creatine Kinase Troponin T C-Reactive Protein Total Protein Albumin Triglycerides HDL Cholesterol Miscellaneous Test Crossmatch 09/13/17 09/13/17 09/13/17 11:56 17:25 23:18 WBC RBC Hgb Hct MCV MCH MCHC RDW Plt Count Lymph % (Auto) [place] % (Auto) [place] # Seg Neutrophils % Seg Neuts % (Manual) Lymphocytes % (Manual) Monocytes % (Manual) Nucleated RBC % Seg Neutrophils # Seg Neutrophils # Man Lymphocytes # (Manual) Monocytes # (Manual) Eosinophils # (Manual) Basophils # (Manual) PT INR POC ABG pH ABG pH POC ABG pCO2 POC ABG pO2 ABG pO2 ABG O2 Saturation ABG Base Excess ABG Hemoglobin Oxyhemoglobin Sodium Potassium Chloride Carbon Dioxide BUN Creatinine Glucose POC Glucose 318 H 278 H 230 H Calcium Phosphorus Magnesium Iron TIBC Ferritin Total Bilirubin AST ALT Alkaline Phosphatase Total Creatine Kinase Troponin T C-Reactive Protein Total Protein Albumin Triglycerides HDL Cholesterol Miscellaneous Test Crossmatch 09/13/17 09/13/17 09/13/17 Unknown Unknown Unknown WBC 15.6 H RBC 2.72 L Hgb 8.1 L Hct 23.9 L MCV MCH MCHC RDW 19.5 H Plt Count 137 L Lymph % (Auto) [place] % (Auto) [place] # Seg Neutrophils % Seg Neuts % (Manual) 73.0 H Lymphocytes % (Manual) 3.0 L Monocytes % (Manual) 19.0 H Nucleated RBC % 2.0 H Seg Neutrophils # Seg Neutrophils # Man 11.4 H Lymphocytes # (Manual) 0.5 L Monocytes # (Manual) 3.0 H Eosinophils # (Manual) Basophils # (Manual) PT INR POC ABG pH ABG pH POC ABG pCO2 POC ABG pO2 ABG pO2 ABG O2 Saturation ABG Base Excess ABG Hemoglobin Oxyhemoglobin Sodium Potassium Chloride Carbon Dioxide 19 L BUN 103 H Creatinine 2.6 H Glucose 173 H POC Glucose Calcium Phosphorus Magnesium Iron TIBC Ferritin Total Bilirubin AST ALT Alkaline Phosphatase Total Creatine Kinase Troponin T C-Reactive Protein Total Protein Albumin < 0.2 L Triglycerides HDL Cholesterol Miscellaneous Test Crossmatch 09/14/17 09/14/17 09/14/17 03:15 03:15 05:16 WBC 12.5 H RBC 2.55 L Hgb 7.6 L Hct 22.5 L MCV MCH MCHC RDW 19.8 H Plt Count 139 L Lymph % (Auto) [place] % (Auto) [place] # Seg Neutrophils % Seg Neuts % (Manual) Lymphocytes % (Manual) Monocytes % (Manual) Nucleated RBC % Seg Neutrophils # Seg Neutrophils # Man Lymphocytes # (Manual) Monocytes # (Manual) Eosinophils # (Manual) Basophils # (Manual) PT INR POC ABG pH ABG pH POC ABG pCO2 POC ABG pO2 ABG pO2 ABG O2 Saturation ABG Base Excess ABG Hemoglobin Oxyhemoglobin Sodium Potassium Chloride Carbon Dioxide BUN 75 H Creatinine 2.1 H Glucose 217 H POC Glucose 283 H Calcium Phosphorus 2.20 L D Magnesium Iron TIBC Ferritin Total Bilirubin AST ALT Alkaline Phosphatase Total Creatine Kinase Troponin T C-Reactive Protein Total Protein Albumin Triglycerides HDL Cholesterol Miscellaneous Test Crossmatch 09/14/17 09/14/17 09/15/17 12:11 17:47 00:03 WBC RBC Hgb Hct MCV MCH MCHC RDW Plt Count Lymph % (Auto) [place] % (Auto) [place] # Seg Neutrophils % Seg Neuts % (Manual) Lymphocytes % (Manual) Monocytes % (Manual) Nucleated RBC % Seg Neutrophils # Seg Neutrophils # Man Lymphocytes # (Manual) Monocytes # (Manual) Eosinophils # (Manual) Basophils # (Manual) PT INR POC ABG pH ABG pH POC ABG pCO2 POC ABG pO2 ABG pO2 ABG O2 Saturation ABG Base Excess ABG Hemoglobin Oxyhemoglobin Sodium Potassium Chloride Carbon Dioxide BUN Creatinine Glucose POC Glucose 251 H 289 H 229 H Calcium Phosphorus Magnesium Iron TIBC Ferritin Total Bilirubin AST ALT Alkaline Phosphatase Total Creatine Kinase Troponin T C-Reactive Protein Total Protein Albumin Triglycerides HDL Cholesterol Miscellaneous Test Crossmatch 09/15/17 09/15/17 09/15/17 05:00 05:00 05:30 WBC 11.7 H RBC 2.50 L Hgb 7.4 L Hct 22.7 L MCV MCH MCHC RDW 20.5 H Plt Count Lymph % (Auto) [place] % (Auto) [place] # Seg Neutrophils % Seg Neuts % (Manual) Lymphocytes % (Manual) 11.0 L Monocytes % (Manual) 11.0 H Nucleated RBC % Seg Neutrophils # Seg Neutrophils # Man Lymphocytes # (Manual) Monocytes # (Manual) 1.3 H Eosinophils # (Manual) Basophils # (Manual) PT INR POC ABG pH ABG pH POC ABG pCO2 POC ABG pO2 ABG pO2 ABG O2 Saturation ABG Base Excess ABG Hemoglobin Oxyhemoglobin Sodium Potassium Chloride 97.0 L Carbon Dioxide 21 L BUN 94 H Creatinine 2.4 H Glucose 194 H POC Glucose 225 H Calcium Phosphorus Magnesium Iron TIBC Ferritin Total Bilirubin AST ALT Alkaline Phosphatase Total Creatine Kinase Troponin T C-Reactive Protein Total Protein Albumin Triglycerides HDL Cholesterol Miscellaneous Test Crossmatch 09/15/17 09/15/17 09/15/17 07:48 11:38 12:45 WBC RBC 1.93 L Hgb 5.7 L* Hct 17.1 L* MCV MCH MCHC RDW 20.2 H Plt Count 125 L Lymph % (Auto) [place] % (Auto) [place] # Seg Neutrophils % Seg Neuts % (Manual) 79.0 H Lymphocytes % (Manual) 8.0 L Monocytes % (Manual) Nucleated RBC % Seg Neutrophils # Seg Neutrophils # Man Lymphocytes # (Manual) 0.8 L Monocytes # (Manual) Eosinophils # (Manual) Basophils # (Manual) PT INR POC ABG pH ABG pH POC ABG pCO2 POC ABG pO2 ABG pO2 ABG O2 Saturation ABG Base Excess ABG Hemoglobin Oxyhemoglobin Sodium Potassium Chloride Carbon Dioxide BUN Creatinine Glucose POC Glucose 245 H 253 H Calcium Phosphorus Magnesium Iron TIBC Ferritin Total Bilirubin AST ALT Alkaline Phosphatase Total Creatine Kinase Troponin T C-Reactive Protein Total Protein Albumin Triglycerides HDL Cholesterol Miscellaneous Test Crossmatch 09/15/17 09/15/17 09/15/17 12:45 12:45 22:25 WBC 19.6 H RBC 3.32 L Hgb 10.0 L D Hct 29.3 L D MCV MCH MCHC RDW 17.0 H Plt Count 123 L Lymph % (Auto) [place] % (Auto) [place] # Seg Neutrophils % Seg Neuts % (Manual) Lymphocytes % (Manual) 12.0 L Monocytes % (Manual) Nucleated RBC % 5.0 H Seg Neutrophils # Seg Neutrophils # Man 11.0 H Lymphocytes # (Manual) Monocytes # (Manual) 1.2 H Eosinophils # (Manual) Basophils # (Manual) PT 15.4 H INR 1.16 H POC ABG pH ABG pH POC ABG pCO2 POC ABG pO2 ABG pO2 ABG O2 Saturation ABG Base Excess ABG Hemoglobin Oxyhemoglobin Sodium Potassium Chloride Carbon Dioxide BUN Creatinine Glucose POC Glucose Calcium Phosphorus Magnesium Iron TIBC Ferritin Total Bilirubin AST ALT Alkaline Phosphatase Total Creatine Kinase Troponin T C-Reactive Protein Total Protein Albumin Triglycerides HDL Cholesterol Miscellaneous Test Crossmatch See Detail 09/15/17 09/15/17 09/16/17 22:25 23:38 01:26 WBC RBC Hgb Hct MCV MCH MCHC RDW Plt Count Lymph % (Auto) [place] % (Auto) [place] # Seg Neutrophils % Seg Neuts % (Manual) Lymphocytes % (Manual) Monocytes % (Manual) Nucleated RBC % Seg Neutrophils # Seg Neutrophils # Man Lymphocytes # (Manual) Monocytes # (Manual) Eosinophils # (Manual) Basophils # (Manual) PT INR POC ABG pH ABG pH POC ABG pCO2 POC ABG pO2 ABG pO2 ABG O2 Saturation ABG Base Excess ABG Hemoglobin Oxyhemoglobin Sodium Potassium Chloride Carbon Dioxide 17 L BUN 100 H Creatinine 2.6 H Glucose POC Glucose 58 L 132 H Calcium 8.3 L Phosphorus Magnesium 1.60 L Iron TIBC Ferritin Total Bilirubin 2.80 H AST 118 H ALT Alkaline Phosphatase 316 H Total Creatine Kinase Troponin T C-Reactive Protein Total Protein 4.0 L Albumin 1.8 L Triglycerides HDL Cholesterol Miscellaneous Test Crossmatch 09/16/17 09/16/17 09/16/17 05:30 05:30 05:54 WBC 24.6 H RBC 3.22 L Hgb 9.8 L Hct 28.6 L MCV MCH MCHC RDW 17.4 H Plt Count 127 L Lymph % (Auto) [place] % (Auto) [place] # Seg Neutrophils % Seg Neuts % (Manual) Lymphocytes % (Manual) Monocytes % (Manual) Nucleated RBC % Seg Neutrophils # Seg Neutrophils # Man Lymphocytes # (Manual) Monocytes # (Manual) Eosinophils # (Manual) Basophils # (Manual) PT INR POC ABG pH ABG pH POC ABG pCO2 POC ABG pO2 ABG pO2 ABG O2 Saturation ABG Base Excess ABG Hemoglobin Oxyhemoglobin Sodium Potassium Chloride Carbon Dioxide 18 L BUN 109 H Creatinine 2.5 H Glucose 140 H POC Glucose 154 H Calcium Phosphorus 4.80 H Magnesium Iron TIBC Ferritin Total Bilirubin 2.40 H AST 90 H ALT Alkaline Phosphatase 298 H Total Creatine Kinase 20 L Troponin T C-Reactive Protein Total Protein 4.1 L Albumin 1.8 L Triglycerides HDL Cholesterol Miscellaneous Test Crossmatch 09/16/17 09/16/17 09/16/17 11:49 17:04 23:18 WBC RBC Hgb Hct MCV MCH MCHC RDW Plt Count Lymph % (Auto) [place] % (Auto) [place] # Seg Neutrophils % Seg Neuts % (Manual) Lymphocytes % (Manual) Monocytes % (Manual) Nucleated RBC % Seg Neutrophils # Seg Neutrophils # Man Lymphocytes # (Manual) Monocytes # (Manual) Eosinophils # (Manual) Basophils # (Manual) PT INR POC ABG pH ABG pH POC ABG pCO2 POC ABG pO2 ABG pO2 ABG O2 Saturation ABG Base Excess ABG Hemoglobin Oxyhemoglobin Sodium Potassium Chloride Carbon Dioxide BUN Creatinine Glucose POC Glucose 167 H 156 H 162 H Calcium Phosphorus Magnesium Iron TIBC Ferritin Total Bilirubin AST ALT Alkaline Phosphatase Total Creatine Kinase Troponin T C-Reactive Protein Total Protein Albumin Triglycerides HDL Cholesterol Miscellaneous Test Crossmatch 09/17/17 09/17/1717 05:27 06:10 06:10 WBC 34.6 H RBC 2.75 L Hgb 8.4 L Hct 24.8 L MCV MCH MCHC RDW 18.3 H Plt Count Lymph % (Auto) [place] % (Auto) [place] # Seg Neutrophils % Seg Neuts % (Manual) 77.0 H Lymphocytes % (Manual) 5.0 L Monocytes % (Manual) Nucleated RBC % 2.0 H Seg Neutrophils # Seg Neutrophils # Man 26.6 H Lymphocytes # (Manual) Monocytes # (Manual) 2.4 H Eosinophils # (Manual) Basophils # (Manual) PT INR POC ABG pH ABG pH POC ABG pCO2 POC ABG pO2 ABG pO2 ABG O2 Saturation ABG Base Excess ABG Hemoglobin Oxyhemoglobin Sodium Potassium Chloride Carbon Dioxide BUN 82 H Creatinine 2.1 H Glucose 252 H POC Glucose 243 H Calcium 8.3 L Phosphorus Magnesium Iron TIBC Ferritin Total Bilirubin AST ALT Alkaline Phosphatase Total Creatine Kinase Troponin T C-Reactive Protein Total Protein Albumin Triglycerides HDL Cholesterol Miscellaneous Test Crossmatch 09/17/17 09/17/17 09/18/17 11:42 17:12 00:08 WBC RBC Hgb Hct MCV MCH MCHC RDW Plt Count Lymph % (Auto) [place] % (Auto) [place] # Seg Neutrophils % Seg Neuts % (Manual) Lymphocytes % (Manual) Monocytes % (Manual) Nucleated RBC % Seg Neutrophils # Seg Neutrophils # Man Lymphocytes # (Manual) Monocytes # (Manual) Eosinophils # (Manual) Basophils # (Manual) PT INR POC ABG pH ABG pH POC ABG pCO2 POC ABG pO2 ABG pO2 ABG O2 Saturation ABG Base Excess ABG Hemoglobin Oxyhemoglobin Sodium Potassium Chloride Carbon Dioxide BUN Creatinine Glucose POC Glucose 232 H 309 H 275 H Calcium Phosphorus Magnesium Iron TIBC Ferritin Total Bilirubin AST ALT Alkaline Phosphatase Total Creatine Kinase Troponin T C-Reactive Protein Total Protein Albumin Triglycerides HDL Cholesterol Miscellaneous Test Crossmatch 09/18/17 09/18/17 09/18/17 05:10 05:10 05:23 WBC 24.4 H RBC 2.57 L Hgb 7.8 L Hct 23.2 L MCV MCH MCHC RDW 19.5 H Plt Count Lymph % (Auto) [place] % (Auto) [place] # Seg Neutrophils % Seg Neuts % (Manual) 78.0 H Lymphocytes % (Manual) 6.0 L Monocytes % (Manual) Nucleated RBC % 2.0 H Seg Neutrophils # Seg Neutrophils # Man 19.0 H Lymphocytes # (Manual) Monocytes # (Manual) Eosinophils # (Manual) Basophils # (Manual) PT INR POC ABG pH ABG pH POC ABG pCO2 POC ABG pO2 ABG pO2 ABG O2 Saturation ABG Base Excess ABG Hemoglobin Oxyhemoglobin Sodium Potassium Chloride Carbon Dioxide BUN 103 H Creatinine 2.8 H Glucose 173 H POC Glucose 224 H Calcium Phosphorus Magnesium Iron TIBC Ferritin Total Bilirubin AST ALT Alkaline Phosphatase Total Creatine Kinase Troponin T C-Reactive Protein Total Protein Albumin Triglycerides HDL Cholesterol Miscellaneous Test Crossmatch 09/18/17 09/18/17 09/18/17 13:59 18:35 23:19 WBC RBC Hgb Hct MCV MCH MCHC RDW Plt Count Lymph % (Auto) [place] % (Auto) [place] # Seg Neutrophils % Seg Neuts % (Manual) Lymphocytes % (Manual) Monocytes % (Manual) Nucleated RBC % Seg Neutrophils # Seg Neutrophils # Man Lymphocytes # (Manual) Monocytes # (Manual) Eosinophils # (Manual) Basophils # (Manual) PT INR POC ABG pH ABG pH POC ABG pCO2 POC ABG pO2 ABG pO2 ABG O2 Saturation ABG Base Excess ABG Hemoglobin Oxyhemoglobin Sodium Potassium Chloride Carbon Dioxide BUN Creatinine Glucose POC Glucose 268 H 220 H 188 H Calcium Phosphorus Magnesium Iron TIBC Ferritin Total Bilirubin AST ALT Alkaline Phosphatase Total Creatine Kinase Troponin T C-Reactive Protein Total Protein Albumin Triglycerides HDL Cholesterol Miscellaneous Test Crossmatch 09/19/17 09/19/17 09/19/17 05:45 06:00 11:41 WBC 17.6 H RBC 2.57 L Hgb 7.9 L Hct 23.2 L MCV MCH MCHC RDW 19.0 H Plt Count Lymph % (Auto) [place] % (Auto) [place] # Seg Neutrophils % Seg Neuts % (Manual) Lymphocytes % (Manual) 9.0 L Monocytes % (Manual) Nucleated RBC % Seg Neutrophils # Seg Neutrophils # Man 11.4 H Lymphocytes # (Manual) Monocytes # (Manual) 0.9 H Eosinophils # (Manual) Basophils # (Manual) PT INR POC ABG pH ABG pH POC ABG pCO2 POC ABG pO2 ABG pO2 ABG O2 Saturation ABG Base Excess ABG Hemoglobin Oxyhemoglobin Sodium Potassium Chloride Carbon Dioxide BUN Creatinine Glucose POC Glucose 178 H 126 H Calcium Phosphorus Magnesium Iron TIBC Ferritin Total Bilirubin AST ALT Alkaline Phosphatase Total Creatine Kinase Troponin T C-Reactive Protein Total Protein Albumin Triglycerides HDL Cholesterol Miscellaneous Test Crossmatch 09/19/17 09/19/17 09/20/17 17:08 23:46 04:46 WBC RBC Hgb Hct MCV MCH MCHC RDW Plt Count Lymph % (Auto) [place] % (Auto) [place] # Seg Neutrophils % Seg Neuts % (Manual) Lymphocytes % (Manual) Monocytes % (Manual) Nucleated RBC % Seg Neutrophils # Seg Neutrophils # Man Lymphocytes # (Manual) Monocytes # (Manual) Eosinophils # (Manual) Basophils # (Manual) PT INR POC ABG pH ABG pH POC ABG pCO2 POC ABG pO2 ABG pO2 ABG O2 Saturation ABG Base Excess ABG Hemoglobin Oxyhemoglobin Sodium Potassium 5.2 H D Chloride 97.4 L Carbon Dioxide 20 L BUN 98 H Creatinine 2.4 H Glucose 187 H POC Glucose 263 H 161 H Calcium Phosphorus Magnesium Iron TIBC Ferritin Total Bilirubin AST ALT Alkaline Phosphatase Total Creatine Kinase Troponin T C-Reactive Protein Total Protein Albumin Triglycerides HDL Cholesterol Miscellaneous Test Crossmatch 09/20/17 09/20/17 09/20/17 05:38 11:36 11:41 WBC 24.5 H RBC 2.84 L Hgb 8.2 L Hct 26.2 L MCV MCH MCHC RDW 20.0 H Plt Count 470 H Lymph % (Auto) [place] % (Auto) [place] # Seg Neutrophils % Seg Neuts % (Manual) Lymphocytes % (Manual) Monocytes % (Manual) Nucleated RBC % Seg Neutrophils # Seg Neutrophils # Man Lymphocytes # (Manual) Monocytes # (Manual) Eosinophils # (Manual) Basophils # (Manual) PT INR POC ABG pH ABG pH POC ABG pCO2 POC ABG pO2 ABG pO2 ABG O2 Saturation ABG Base Excess ABG Hemoglobin Oxyhemoglobin Sodium Potassium Chloride Carbon Dioxide BUN Creatinine Glucose POC Glucose 215 H 220 H Calcium Phosphorus Magnesium Iron TIBC Ferritin Total Bilirubin AST ALT Alkaline Phosphatase Total Creatine Kinase Troponin T C-Reactive Protein Total Protein Albumin Triglycerides HDL Cholesterol Miscellaneous Test Crossmatch 09/20/17 09/21/17 09/21/17 17:45 00:51 04:00 WBC RBC Hgb Hct MCV MCH MCHC RDW Plt Count Lymph % (Auto) [place] % (Auto) [place] # Seg Neutrophils % Seg Neuts % (Manual) Lymphocytes % (Manual) Monocytes % (Manual) Nucleated RBC % Seg Neutrophils # Seg Neutrophils # Man Lymphocytes # (Manual) Monocytes # (Manual) Eosinophils # (Manual) Basophils # (Manual) PT INR POC ABG pH ABG pH POC ABG pCO2 POC ABG pO2 ABG pO2 ABG O2 Saturation ABG Base Excess ABG Hemoglobin Oxyhemoglobin Sodium Potassium 3.2 L D Chloride 96.4 L Carbon Dioxide BUN 63 H Creatinine 1.8 H Glucose 204 H POC Glucose 122 H 137 H Calcium 8.3 L Phosphorus 2.10 L D Magnesium 1.50 L Iron TIBC Ferritin Total Bilirubin AST ALT Alkaline Phosphatase Total Creatine Kinase Troponin T C-Reactive Protein Total Protein Albumin Triglycerides HDL Cholesterol Miscellaneous Test Crossmatch 09/21/17 09/21/17 09/21/17 05:45 08:30 11:50 WBC 27.5 H RBC 2.52 L Hgb 7.7 L Hct 22.8 L MCV MCH MCHC RDW 19.2 H Plt Count 457 H Lymph % (Auto) [place] % (Auto) [place] # Seg Neutrophils % Seg Neuts % (Manual) Lymphocytes % (Manual) Monocytes % (Manual) Nucleated RBC % Seg Neutrophils # Seg Neutrophils # Man Lymphocytes # (Manual) Monocytes # (Manual) Eosinophils # (Manual) Basophils # (Manual) PT INR POC ABG pH ABG pH POC ABG pCO2 POC ABG pO2 ABG pO2 ABG O2 Saturation ABG Base Excess ABG Hemoglobin Oxyhemoglobin Sodium Potassium Chloride Carbon Dioxide BUN Creatinine Glucose POC Glucose 243 H Calcium Phosphorus Magnesium Iron TIBC Ferritin Total Bilirubin AST ALT Alkaline Phosphatase Total Creatine Kinase Troponin T C-Reactive Protein Total Protein Albumin Triglycerides HDL Cholesterol Miscellaneous Test Crossmatch See Detail 09/21/17 09/21/17 09/22/17 13:03 16:39 00:09 WBC RBC Hgb Hct MCV MCH MCHC RDW Plt Count Lymph % (Auto) [place] % (Auto) [place] # Seg Neutrophils % Seg Neuts % (Manual) Lymphocytes % (Manual) Monocytes % (Manual) Nucleated RBC % Seg Neutrophils # Seg Neutrophils # Man Lymphocytes # (Manual) Monocytes # (Manual) Eosinophils # (Manual) Basophils # (Manual) PT INR POC ABG pH ABG pH POC ABG pCO2 POC ABG pO2 ABG pO2 ABG O2 Saturation ABG Base Excess ABG Hemoglobin Oxyhemoglobin Sodium Potassium Chloride Carbon Dioxide BUN Creatinine Glucose POC Glucose 271 H 160 H 191 H Calcium Phosphorus Magnesium Iron TIBC Ferritin Total Bilirubin AST ALT Alkaline Phosphatase Total Creatine Kinase Troponin T C-Reactive Protein Total Protein Albumin Triglycerides HDL Cholesterol Miscellaneous Test Crossmatch 09/22/17 09/22/17 09/22/17 03:37 05:40 07:35 WBC 29.7 H RBC 2.71 L Hgb 8.1 L Hct 24.1 L MCV MCH MCHC RDW 19.6 H Plt Count 491 H Lymph % (Auto) [place] % (Auto) [place] # Seg Neutrophils % Seg Neuts % (Manual) 70.5 H Lymphocytes % (Manual) 12.5 L Monocytes % (Manual) 10.0 H Nucleated RBC % 2.0 H Seg Neutrophils # Seg Neutrophils # Man 20.9 H Lymphocytes # (Manual) Monocytes # (Manual) 3.0 H Eosinophils # (Manual) Basophils # (Manual) PT INR POC ABG pH ABG pH POC ABG pCO2 POC ABG pO2 ABG pO2 ABG O2 Saturation ABG Base Excess ABG Hemoglobin Oxyhemoglobin Sodium Potassium 3.0 L Chloride 95.9 L Carbon Dioxide BUN 74 H Creatinine 2.1 H Glucose 126 H POC Glucose 150 H Calcium Phosphorus 2.10 L Magnesium 1.40 L Iron TIBC Ferritin Total Bilirubin AST ALT Alkaline Phosphatase 311 H Total Creatine Kinase Troponin T C-Reactive Protein Total Protein 4.4 L Albumin 2.0 L Triglycerides HDL Cholesterol Miscellaneous Test Crossmatch 09/22/17 09/23/17 09/23/17 12:20 05:02 05:02 WBC 37.5 H RBC 2.54 L Hgb 7.3 L Hct 22.9 L MCV MCH MCHC RDW 19.4 H Plt Count 471 H Lymph % (Auto) [place] % (Auto) [place] # Seg Neutrophils % Seg Neuts % (Manual) Lymphocytes % (Manual) 8.0 L Monocytes % (Manual) Nucleated RBC % 1.0 H Seg Neutrophils # Seg Neutrophils # Man 15.0 H Lymphocytes # (Manual) Monocytes # (Manual) 1.9 H Eosinophils # (Manual) Basophils # (Manual) PT INR POC ABG pH ABG pH POC ABG pCO2 POC ABG pO2 ABG pO2 ABG O2 Saturation ABG Base Excess ABG Hemoglobin Oxyhemoglobin Sodium 136 L Potassium 3.0 L Chloride 93.8 L Carbon Dioxide BUN 99 H Creatinine 2.7 H Glucose POC Glucose 106 H Calcium 8.2 L Phosphorus 2.40 L Magnesium Iron TIBC Ferritin Total Bilirubin AST ALT Alkaline Phosphatase Total Creatine Kinase Troponin T C-Reactive Protein Total Protein Albumin Triglycerides HDL Cholesterol Miscellaneous Test Crossmatch 09/23/17 09/23/17 09/23/17 05:39 11:21 18:19 WBC RBC Hgb Hct MCV MCH MCHC RDW Plt Count Lymph % (Auto) [place] % (Auto) [place] # Seg Neutrophils % Seg Neuts % (Manual) Lymphocytes % (Manual) Monocytes % (Manual) Nucleated RBC % Seg Neutrophils # Seg Neutrophils # Man Lymphocytes # (Manual) Monocytes # (Manual) Eosinophils # (Manual) Basophils # (Manual) PT INR POC ABG pH ABG pH POC ABG pCO2 POC ABG pO2 ABG pO2 ABG O2 Saturation ABG Base Excess ABG Hemoglobin Oxyhemoglobin Sodium Potassium Chloride Carbon Dioxide BUN Creatinine Glucose POC Glucose 118 H 130 H 189 H Calcium Phosphorus Magnesium Iron TIBC Ferritin Total Bilirubin AST ALT Alkaline Phosphatase Total Creatine Kinase Troponin T C-Reactive Protein Total Protein Albumin Triglycerides HDL Cholesterol Miscellaneous Test Crossmatch 09/23/17 09/24/17 09/24/17 23:55 04:00 04:00 WBC 37.8 H RBC 2.76 L Hgb 8.1 L Hct 24.8 L MCV MCH MCHC RDW 19.8 H Plt Count 539 H Lymph % (Auto) [place] % (Auto) [place] # Seg Neutrophils % Seg Neuts % (Manual) Lymphocytes % (Manual) 4.0 L Monocytes % (Manual) Nucleated RBC % 6.0 H Seg Neutrophils # Seg Neutrophils # Man 19.3 H Lymphocytes # (Manual) Monocytes # (Manual) 1.5 H Eosinophils # (Manual) Basophils # (Manual) 0.4 H PT INR POC ABG pH ABG pH POC ABG pCO2 POC ABG pO2 ABG pO2 ABG O2 Saturation ABG Base Excess ABG Hemoglobin Oxyhemoglobin Sodium Potassium 3.5 L Chloride 95.2 L Carbon Dioxide BUN 67 H Creatinine 1.9 H Glucose 140 H POC Glucose 120 H Calcium 8.2 L Phosphorus 2.00 L Magnesium Iron TIBC Ferritin Total Bilirubin AST ALT Alkaline Phosphatase Total Creatine Kinase Troponin T C-Reactive Protein Total Protein Albumin Triglycerides HDL Cholesterol Miscellaneous Test Crossmatch 09/24/17 09/24/17 09/24/17 04:00 05:33 12:16 WBC RBC Hgb Hct MCV MCH MCHC RDW Plt Count Lymph % (Auto) [place] % (Auto) [place] # Seg Neutrophils % Seg Neuts % (Manual) Lymphocytes % (Manual) Monocytes % (Manual) Nucleated RBC % Seg Neutrophils # Seg Neutrophils # Man Lymphocytes # (Manual) Monocytes # (Manual) Eosinophils # (Manual) Basophils # (Manual) PT INR POC ABG pH ABG pH POC ABG pCO2 POC ABG pO2 ABG pO2 ABG O2 Saturation ABG Base Excess ABG Hemoglobin Oxyhemoglobin Sodium Potassium Chloride Carbon Dioxide BUN Creatinine Glucose POC Glucose 178 H 262 H Calcium Phosphorus Magnesium Iron TIBC Ferritin Total Bilirubin AST ALT Alkaline Phosphatase Total Creatine Kinase Troponin T C-Reactive Protein Total Protein Albumin Triglycerides HDL Cholesterol Miscellaneous Test Crossmatch See Detail 09/24/17 09/24/17 09/25/17 17:51 23:33 06:03 WBC RBC Hgb Hct MCV MCH MCHC RDW Plt Count Lymph % (Auto) [place] % (Auto) [place] # Seg Neutrophils % Seg Neuts % (Manual) Lymphocytes % (Manual) Monocytes % (Manual) Nucleated RBC % Seg Neutrophils # Seg Neutrophils # Man Lymphocytes # (Manual) Monocytes # (Manual) Eosinophils # (Manual) Basophils # (Manual) PT INR POC ABG pH ABG pH POC ABG pCO2 POC ABG pO2 ABG pO2 ABG O2 Saturation ABG Base Excess ABG Hemoglobin Oxyhemoglobin Sodium Potassium Chloride Carbon Dioxide BUN Creatinine Glucose POC Glucose 166 H 142 H 173 H Calcium Phosphorus Magnesium Iron TIBC Ferritin Total Bilirubin AST ALT Alkaline Phosphatase Total Creatine Kinase Troponin T C-Reactive Protein Total Protein Albumin Triglycerides HDL Cholesterol Miscellaneous Test Crossmatch 09/25/17 09/25/17 09/25/17 07:49 07:49 11:36 WBC 59.6 H* RBC 2.63 L Hgb 7.7 L Hct 26.0 L MCV 99 H MCH MCHC RDW 21.8 H Plt Count Lymph % (Auto) [place] % (Auto) [place] # Seg Neutrophils % Seg Neuts % (Manual) Lymphocytes % (Manual) 2.0 L Monocytes % (Manual) Nucleated RBC % 8.0 H Seg Neutrophils # Seg Neutrophils # Man 41.7 H Lymphocytes # (Manual) Monocytes # (Manual) 1.2 H Eosinophils # (Manual) Basophils # (Manual) PT INR POC ABG pH ABG pH POC ABG pCO2 POC ABG pO2 ABG pO2 ABG O2 Saturation ABG Base Excess ABG Hemoglobin Oxyhemoglobin Sodium Potassium 5.3 H D Chloride 97.7 L Carbon Dioxide 19 L BUN 90 H Creatinine 2.5 H Glucose 181 H POC Glucose 308 H Calcium 8.0 L Phosphorus Magnesium Iron TIBC Ferritin Total Bilirubin AST ALT Alkaline Phosphatase Total Creatine Kinase Troponin T C-Reactive Protein Total Protein Albumin Triglycerides HDL Cholesterol Miscellaneous Test Crossmatch 09/25/17 09/25/17 09/26/17 16:11 23:38 05:25 WBC 61.9 H* RBC 2.30 L Hgb 7.0 L Hct 21.4 L MCV MCH MCHC RDW 21.3 H Plt Count Lymph % (Auto) [place] % (Auto) [place] # Seg Neutrophils % Seg Neuts % (Manual) Lymphocytes % (Manual) 1.0 L Monocytes % (Manual) Nucleated RBC % 7.0 H Seg Neutrophils # Seg Neutrophils # Man 37.1 H Lymphocytes # (Manual) 0.6 L Monocytes # (Manual) 1.9 H Eosinophils # (Manual) Basophils # (Manual) PT INR POC ABG pH ABG pH POC ABG pCO2 POC ABG pO2 ABG pO2 ABG O2 Saturation ABG Base Excess ABG Hemoglobin Oxyhemoglobin Sodium Potassium Chloride Carbon Dioxide BUN Creatinine Glucose POC Glucose 249 H 263 H Calcium Phosphorus Magnesium Iron TIBC Ferritin Total Bilirubin AST ALT Alkaline Phosphatase Total Creatine Kinase Troponin T C-Reactive Protein Total Protein Albumin Triglycerides HDL Cholesterol Miscellaneous Test Crossmatch 09/26/17 09/26/17 09/26/17 05:25 05:32 11:33 WBC RBC Hgb Hct MCV MCH MCHC RDW Plt Count Lymph % (Auto) [place] % (Auto) [place] # Seg Neutrophils % Seg Neuts % (Manual) Lymphocytes % (Manual) Monocytes % (Manual) Nucleated RBC % Seg Neutrophils # Seg Neutrophils # Man Lymphocytes # (Manual) Monocytes # (Manual) Eosinophils # (Manual) Basophils # (Manual) PT INR POC ABG pH ABG pH POC ABG pCO2 POC ABG pO2 ABG pO2 ABG O2 Saturation ABG Base Excess ABG Hemoglobin Oxyhemoglobin Sodium Potassium Chloride Carbon Dioxide 21 L BUN 81 H Creatinine 2.3 H Glucose 178 H POC Glucose 225 H 246 H Calcium 8.1 L Phosphorus Magnesium Iron TIBC Ferritin Total Bilirubin AST ALT Alkaline Phosphatase Total Creatine Kinase Troponin T C-Reactive Protein Total Protein Albumin Triglycerides HDL Cholesterol Miscellaneous Test Crossmatch 09/26/17 09/27/17 09/27/17 17:43 00:11 04:00 WBC 63.0 H* RBC 2.23 L Hgb 6.3 L Hct 20.6 L MCV MCH MCHC RDW 20.6 H Plt Count Lymph % (Auto) [place] % (Auto) [place] # Seg Neutrophils % Seg Neuts % (Manual) Lymphocytes % (Manual) 3.0 L Monocytes % (Manual) Nucleated RBC % 6.0 H Seg Neutrophils # Seg Neutrophils # Man 40.3 H Lymphocytes # (Manual) Monocytes # (Manual) 4.4 H Eosinophils # (Manual) Basophils # (Manual) PT INR POC ABG pH ABG pH POC ABG pCO2 POC ABG pO2 ABG pO2 ABG O2 Saturation ABG Base Excess ABG Hemoglobin Oxyhemoglobin Sodium Potassium Chloride Carbon Dioxide BUN Creatinine Glucose POC Glucose 180 H 194 H Calcium Phosphorus Magnesium Iron TIBC Ferritin Total Bilirubin AST ALT Alkaline Phosphatase Total Creatine Kinase Troponin T C-Reactive Protein Total Protein Albumin Triglycerides HDL Cholesterol Miscellaneous Test Crossmatch 09/27/17 09/27/17 09/27/17 04:00 04:00 05:11 WBC RBC Hgb Hct MCV MCH MCHC RDW Plt Count Lymph % (Auto) [place] % (Auto) [place] # Seg Neutrophils % Seg Neuts % (Manual) Lymphocytes % (Manual) Monocytes % (Manual) Nucleated RBC % Seg Neutrophils # Seg Neutrophils # Man Lymphocytes # (Manual) Monocytes # (Manual) Eosinophils # (Manual) Basophils # (Manual) PT INR POC ABG pH ABG pH POC ABG pCO2 POC ABG pO2 ABG pO2 ABG O2 Saturation ABG Base Excess ABG Hemoglobin Oxyhemoglobin Sodium Potassium Chloride Carbon Dioxide 19 L BUN 102 H Creatinine 2.8 H Glucose 141 H POC Glucose 189 H Calcium 8.1 L Phosphorus Magnesium 2.40 H Iron TIBC Ferritin Total Bilirubin AST ALT Alkaline Phosphatase Total Creatine Kinase Troponin T C-Reactive Protein Total Protein Albumin Triglycerides HDL Cholesterol Miscellaneous Test Crossmatch 09/27/17 09/27/17 09/27/17 08:58 11:54 17:20 WBC RBC Hgb Hct MCV MCH MCHC RDW Plt Count Lymph % (Auto) [place] % (Auto) [place] # Seg Neutrophils % Seg Neuts % (Manual) Lymphocytes % (Manual) Monocytes % (Manual) Nucleated RBC % Seg Neutrophils # Seg Neutrophils # Man Lymphocytes # (Manual) Monocytes # (Manual) Eosinophils # (Manual) Basophils # (Manual) PT INR POC ABG pH ABG pH POC ABG pCO2 POC ABG pO2 ABG pO2 ABG O2 Saturation ABG Base Excess ABG Hemoglobin Oxyhemoglobin Sodium Potassium Chloride Carbon Dioxide BUN Creatinine Glucose POC Glucose 196 H 199 H Calcium Phosphorus Magnesium Iron TIBC Ferritin Total Bilirubin AST ALT Alkaline Phosphatase Total Creatine Kinase Troponin T C-Reactive Protein Total Protein Albumin Triglycerides HDL Cholesterol Miscellaneous Test Crossmatch See Detail 09/28/17 09/28/17 09/28/17 00:11 05:23 12:07 WBC RBC Hgb Hct MCV MCH MCHC RDW Plt Count Lymph % (Auto) [place] % (Auto) [place] # Seg Neutrophils % Seg Neuts % (Manual) Lymphocytes % (Manual) Monocytes % (Manual) Nucleated RBC % Seg Neutrophils # Seg Neutrophils # Man Lymphocytes # (Manual) Monocytes # (Manual) Eosinophils # (Manual) Basophils # (Manual) PT INR POC ABG pH ABG pH POC ABG pCO2 POC ABG pO2 ABG pO2 ABG O2 Saturation ABG Base Excess ABG Hemoglobin Oxyhemoglobin Sodium Potassium Chloride Carbon Dioxide BUN Creatinine Glucose POC Glucose 155 H 237 H 218 H Calcium Phosphorus Magnesium Iron TIBC Ferritin Total Bilirubin AST ALT Alkaline Phosphatase Total Creatine Kinase Troponin T C-Reactive Protein Total Protein Albumin Triglycerides HDL Cholesterol Miscellaneous Test Crossmatch 09/28/17 09/28/17 Unknown Unknown WBC 39.0 H RBC 3.10 L Hgb 9.6 L D Hct 27.6 L D MCV MCH MCHC 35 H RDW 17.1 H Plt Count Lymph % (Auto) [place] % (Auto) [place] # Seg Neutrophils % Seg Neuts % (Manual) 80.5 H Lymphocytes % (Manual) 0.5 L Monocytes % (Manual) Nucleated RBC % Seg Neutrophils # Seg Neutrophils # Man 31.4 H Lymphocytes # (Manual) 0.2 L Monocytes # (Manual) 2.5 H Eosinophils # (Manual) Basophils # (Manual) PT INR POC ABG pH ABG pH POC ABG pCO2 POC ABG pO2 ABG pO2 ABG O2 Saturation ABG Base Excess ABG Hemoglobin Oxyhemoglobin Sodium Potassium 3.4 L D Chloride Carbon Dioxide BUN 72 H Creatinine 2.0 H Glucose 194 H POC Glucose Calcium 7.4 L Phosphorus Magnesium Iron TIBC Ferritin Total Bilirubin AST ALT Alkaline Phosphatase Total Creatine Kinase Troponin T C-Reactive Protein Total Protein Albumin Triglycerides HDL Cholesterol Miscellaneous Test Crossmatch Chest x-ray: report reviewed, image reviewed
[2017-09-28] MEDS: DUONEB *Not for PRN Use IH SCH (16:00)
--- NOTE | 2017-09-28 16:04 | Progress Note ---
Assessment and Plan 62 y.o. F s/p ex lap, repair of enterotomy, then s/p ex lap, transverse colon resection, colostomy creation, and s/p ex lap, abdominal wash out and abdominal wall closure after wound dehiscence 3 weeks s/p ex lap for gastric perforation and sbo. complicated patient with hx of several abdominal procedures this admission, starting with surgery for SBO and gastric perforation. Most recently, s/p exlap and repair of enterotomy and midline closure with biologic mesh due to dehiscence tachycardia improving but still requiring pressor support leukocytosis- likley from peritonitis now improving after source controlled. abx per ID will continue dressing changes and Nurtrition: TPN for nutritional support. May start trickle feeds via G tube. Rec 10cc/hr for first 12-24 hrs to ensure she will tolerate. wound care: -Will discuss possible use of wound vac with wound care nurse. -santyl to border of wound at site of fat necrosis. -Monitor ostomy site - Renal : HD per renal DVT proph: scds GI: PPI. - Patient Problems (1) Peritonitis (acute) generalized Current Visit: Yes Status: Acute Subjective Narrative: No acute overnight events. Pt resting in bed, vent, levo at 8. family at bedside. NG removed yesterday Outputs : G tube- clamped, then checked residuals every [address] 100cc . YAMINI upper: 215cc serosang YAMINI lower : 245cc serous/murky fluid ostomy: liquid stool afebrile Objective Vital Signs - 12hr 09/28/17 09/28/17 09/28/17 04:15 04:20 04:30 Temperature Pulse Rate 96 H 96 H 96 H Respiratory 19 18 Rate Blood Pressure 137/72 123/53 O2 Sat by Pulse 66 L 99 75 L Oximetry 09/28/17 09/28/17 09/28/17 04:42 04:45 05:00 Temperature Pulse Rate 94 H 93 H 94 H Respiratory 19 17 Rate Blood Pressure 137/72 123/62 123/62 O2 Sat by Pulse 100 94 Oximetry 09/28/17 09/28/17 09/28/17 05:16 05:23 05:30 Temperature Pulse Rate 94 H 93 H 96 H Respiratory 19 18 17 Rate Blood Pressure 113/52 113/52 O2 Sat by Pulse 65 L Oximetry 09/28/17 09/28/17 09/28/17 05:45 06:00 06:16 Temperature Pulse Rate 93 H 93 H 92 H Respiratory 20 18 18 Rate Blood Pressure 124/50 132/47 121/60 O2 Sat by Pulse 78 L 76 L 100 Oximetry 09/28/17 09/28/17 09/28/17 06:25 06:30 06:45 Temperature Pulse Rate 93 H 92 H Respiratory 18 17 17 Rate Blood Pressure 124/50 129/58 O2 Sat by Pulse 99 67 L Oximetry 09/28/17 09/28/17 09/28/17 07:00 07:16 07:28 Temperature 99.2 F Pulse Rate 92 H 100 H Respiratory 17 21 Rate Blood Pressure 137/44 140/35 O2 Sat by Pulse 93 88 Oximetry 09/28/17 09/28/17 09/28/17 07:30 07:46 08:00 Temperature Pulse Rate 91 H 99 H 94 H Respiratory 21 22 17 Rate Blood Pressure 150/35 161/140 120/32 O2 Sat by Pulse 98 96 100 Oximetry 09/28/17 09/28/17 09/28/17 08:16 08:28 08:30 Temperature Pulse Rate 96 H 96 H 96 H Respiratory 11 L 21 Rate Blood Pressure 134/27 134/27 142/43 O2 Sat by Pulse 95 100 52 L Oximetry 09/28/17 09/28/17 09/28/17 08:32 08:46 09:00 Temperature Pulse Rate 96 H 96 H 97 H Respiratory 31 H 23 32 H Rate Blood Pressure 142/43 130/46 125/47 O2 Sat by Pulse 100 85 Oximetry 09/28/17 09/28/17 09:15 12:00 Temperature 98.8 F Pulse Rate 99 H 93 H Respiratory 25 H Rate Blood Pressure 136/53 97/48 O2 Sat by Pulse 89 98 Oximetry - General physical appearance chronically ill, obese - Neck other (trach in place no bleeding ) - Respiratory wheezing: bilateral - Abdomen other (soft, obese, midline dressing removed. retention sutures in place. serosang discharge in midline. irrigated with ns then calcium alginate placed in midline. Fat necorsis along borders of wound. fasica intact. YAMINI x [address] G tube: surrounding skin farhad down- cleaned and calcium aglinate placed around to collection secretions. upper yamini and G tube bolstered to prevent pulling. Ostomy: ostomy wafer removed due to fecal drainage to one fo the retention suture sites. Area of ostomy cleaned. sloughing of borders of stoma. Area of mucocutaneous seperation at medial aspect- 3-0 vicryl used to apprx stoma to skin without tension. Paste surrouding stoma and wafer replaced. + minimal air in bag with brown liquid stool Mio stoma at center, patent. ) - Neurologic other (retracts upper ext. to pain. grimace with pain. Does not follow commands. ) - Labs 09/28/17 Unknown 09/28/17 Unknown Diabetes panel 09/28/17 Range/Units Unknown Sodium 140 (137-145) mmol/L Potassium 3.4 L D (3.6-5.0) mmol/L Chloride 99.3 (98-107) mmol/L Carbon Dioxide 22 (22-30) mmol/L BUN 72 H (7-17) mg/dL Creatinine 2.0 H (0.7-1.2) mg/dL Glucose 194 H (65-100) mg/dL Calcium 7.4 L (8.4-10.2) mg/dL Calcium panel 09/28/17 09/28/17 Range/Units Unknown Unknown Calcium 7.4 L (8.4-10.2) mg/dL Phosphorus 2.70 D (2.5-4.5) mg/dL Pituitary panel 09/28/17 Range/Units Unknown Sodium 140 (137-145) mmol/L Potassium 3.4 L D (3.6-5.0) mmol/L Chloride 99.3 (98-107) mmol/L Carbon Dioxide 22 (22-30) mmol/L BUN 72 H (7-17) mg/dL Creatinine 2.0 H (0.7-1.2) mg/dL Glucose 194 H (65-100) mg/dL Calcium 7.4 L (8.4-10.2) mg/dL Adrenal panel 09/28/17 Range/Units Unknown Sodium 140 (137-145) mmol/L Potassium 3.4 L D (3.6-5.0) mmol/L Chloride 99.3 (98-107) mmol/L Carbon Dioxide 22 (22-30) mmol/L BUN 72 H (7-17) mg/dL Creatinine 2.0 H (0.7-1.2) mg/dL Glucose 194 H (65-100) mg/dL Calcium 7.4 L (8.4-10.2) mg/dL
--- NOTE | 2017-09-28 16:11 | Progress Note ---
Assessment and Plan Assessment: 1) Sepsis with septic shock: worsening leukocytosis, still on pressors. Procal = 7-->3 2) Initial Bowel obstruction / suspect ?gastric perforation ? peritonitis -S/P Exlap, G-tube placement, EGD, abdominal washout and removal of PD -OR findings - bowel obstruction due to entanglement of PD cath, abscess cavity in LUQ and ? suspect perforation of unclear location 3) Intiial CA-UTI: chronic ivan exchanged every 4 weeks and ureteral stents in place which are exchanged every 6 months 4) Paraplegia 5) ESRD on PD - now on HD 6) Recent pancreatitis 7) Penicillin allergy-has taken keflex w/o problems 8) Presumed Surgical wound infection / dehiscence ? 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 11) Anemia- severe- Hg 6.7 today 12) Colonic perforation -S/P exlap, transverse colectomy, right sided colostomy and wash out on 09/15 -?presumed leak -surgical wound + Kristine and MDR Acinetobacter 13) Small bowell enterotomy leak / peritonitis s/p wash out / biologic mesh placement / closure of small bowel enterotomy on 09/24 Plan: -continue meropenem and fluconazole 4 of 7 days -contact isolation -monitor leukocytosis Thank you Dr Chen for your consultation, will follow up with you. Ramya Lang MD Infectious Diseases Specialist [facility] ([facility]) M [phone] O [phone] Subjective Date of service: 09/28/17 Principal diagnosis: respiratory failure, sepsis, shock rectal bleeding Interval history: Pt remains on the vent still levophed at 5 mcg on TPN, fentanyl, no fever. Microbiology: Blood cultures: 08/08 neg 08/12 neg 08/16 neg 08/20 neg 08/29 neg 09/06 neg 09/12 ngtd Urine cultures: 08/08 10-100K skin grace Respiratory cultures: 08/30 tracheal asp MRSA Wound cultures: 08/26 Staph aureus and Kristine 08/28 MRSA, E faecalis, Kristine albicans 09/20 MDR Acinetobacter and Kristine albicans Stool cultures: Other: 08/08 peritoneal fluid + [employer]/Diphteroids Current Antimicrobials: meropenem 09/25 fluconazole 09/24 Previous Antimicrobials: 08/10 levaquin 08/16 vancomycin 08/13 meropenem 08/16 fluconazole Micafungin 08/29 meropenem 08/29 zyvox 09/03 fluconazole 09/03 dapto 09/10 meropenem 09/09-09/22 micafungin 09/11-09/21 Objective - Exam Narrative Exam: General appearance: on the vent via trach Eyes: anicteric sclerae, moist conjunctivae; no lid-lag; PERRLA HENT: Atraumatic; NGT Neck: Trach in place Lungs: coarse BS moreno CV: RRR Abdomen: soft, midline surgical wound + ostomy. MERVIN drains with minimal output, LLQ drain slightly seropurulent, LUQ drain serosanguenous. G tube to OSD with yellow output per surgical eval. Extremities: + peripheral edema + leg ulcer no drainage Skin: right groin old fem line wound no erythema, no drainage Psych: sedated. Neuro: sedated Lines: right IJ vas cath / Right IJ Nair 08/16 - Constitutional Vitals: Vital Signs Temp Pulse Resp BP Pulse Ox 98.8 F 93 H 25 H 97/48 98 09/28/17 12:00 09/28/17 12:00 09/28/17 09:15 09/28/17 12:00 09/28/17 12:00 Temperature -Last 24 Hours Temperature 98.8 F Temperature 99.2 F Temperature 99.9 F Temperature 99.6 F Temperature 99.4 F - Labs CBC & Chem 7: 09/28/17 Unknown 09/28/17 Unknown Labs: Abnormal lab results 09/27/17 09/27/17 09/28/17 Range/Units 11:54 17:20 00:11 WBC (4.5-11.0) K/mm3 RBC (3.65-5.03) M/mm3 Hgb (10.1-14.3) gm/dl Hct (30.3-42.9) % MCHC (30-34) % RDW (13.2-15.2) % Seg Neuts % (Manual) (40.0-70.0) % Lymphocytes % (Manual) (13.4-35.0) % Seg Neutrophils # Man (1.8-7.7) K/mm3 Lymphocytes # (Manual) (1.2-5.4) K/mm3 Monocytes # (Manual) (0.0-0.8) K/mm3 Potassium (3.6-5.0) mmol/L BUN (7-17) mg/dL Creatinine (0.7-1.2) mg/dL Glucose (65-100) mg/dL POC Glucose 196 H 199 H 155 H (70-105) Calcium (8.4-10.2) mg/dL 09/28/17 09/28/17 09/28/17 Range/Units 05:23 12:07 Unknown WBC 39.0 H (4.5-11.0) K/mm3 RBC 3.10 L (3.65-5.03) M/mm3 Hgb 9.6 L D (10.1-14.3) gm/dl Hct 27.6 L D (30.3-42.9) % MCHC 35 H (30-34) % RDW 17.1 H (13.2-15.2) % Seg Neuts % (Manual) 80.5 H (40.0-70.0) % Lymphocytes % (Manual) 0.5 L (13.4-35.0) % Seg Neutrophils # Man 31.4 H (1.8-7.7) K/mm3 Lymphocytes # (Manual) 0.2 L (1.2-5.4) K/mm3 Monocytes # (Manual) 2.5 H (0.0-0.8) K/mm3 Potassium (3.6-5.0) mmol/L BUN (7-17) mg/dL Creatinine (0.7-1.2) mg/dL Glucose (65-100) mg/dL POC Glucose 237 H 218 H (70-105) Calcium (8.4-10.2) mg/dL 09/28/17 Range/Units Unknown WBC (4.5-11.0) K/mm3 RBC (3.65-5.03) M/mm3 Hgb (10.1-14.3) gm/dl Hct (30.3-42.9) % MCHC (30-34) % RDW (13.2-15.2) % Seg Neuts % (Manual) (40.0-70.0) % Lymphocytes % (Manual) (13.4-35.0) % Seg Neutrophils # Man (1.8-7.7) K/mm3 Lymphocytes # (Manual) (1.2-5.4) K/mm3 Monocytes # (Manual) (0.0-0.8) K/mm3 Potassium 3.4 L D (3.6-5.0) mmol/L BUN 72 H (7-17) mg/dL Creatinine 2.0 H (0.7-1.2) mg/dL Glucose 194 H (65-100) mg/dL POC Glucose (70-105) Calcium 7.4 L (8.4-10.2) mg/dL
--- NOTE | 2017-09-28 17:03 | Progress Note ---
Assessment and Plan Assessment and Plan Assessment and plan: Septic shock. Patient with previous abdominal abscess and CAUTI. ID following. Cont. meropenem and fluconazole (previous agents - meropenem/ micafungin for Presumed Surgical wound infection / dehiscence ? wound + MRSA, E faecalis and Kristine albicans) Pt. with recent small bowel enterotomy leak. Worsening leukocytosis. Patient still requiring pressors. Acute hypoxic respiratory failure. Patient remains on mechanical ventilation. Continue weaning per pulmonary MRSA in tracheal aspirate ? colonizer versus VAP Peritonitis/intra-abdominal abscess/ Initial Bowel obstruction (related to likely gastric perforation). 09/24/17: ex lap with abdominal washout and placement of biologic mesh and proximal aspect of midline wound, closure of enterotomy 09/15/17: Ex lap, transverse colectomy, R colostomy and abdominal wash out 08/31: Ex lap with abdominal wash out and closure 08/17: Ex lap with G tube placement, EGD, abdominal wash out and removal of PD Cath (OR findings - bowel obstruction due to entanglement of PD cath, abscess cavity in LUQ and ? suspect perforation of unclear location) Cont. TPN End-stage renal disease -patient previously with peritoneal dialysis that has been discontinued -Hemodialysis per nephrology. -needs perm cath when improved Anemia -etiology, likely secondary to blood loss anemia. Transfuse 2 units PRBCs with Hemodialysis. No active bleeding Ulcerative esophagitis/small gastric ulcer. Patient status post EGD. s/p multiple transfusions -Patient had CTA of abdomen and pelvis that revealed no active bleeding, CT Abdomen repeated 09/06, no acute findings CAUTI. Completed antibiotics Protein calorie malnutrition. -Continue TPN. Leukocytosis. -worse- -ID following -Follow up CBC Recent pancreatitis. resolved Penicillin allergy-has taken keflex w/o problems in past NSVT cardiology believes that etiology was secondary to Levophed which now has been weaned off History of cervical surgery and postoperative wheelchair bound since then - pain control DVT prophylaxis Disposition - Prognosis is extremely guarded. Subjective Date of service: 09/28/17 Principal diagnosis: respiratory failure, sepsis, shock rectal bleeding Interval history: Patient is intubated via tracheostomy She does not follow simple commands Chart reviewed On interdisciplinary note reviewed Objective - Constitutional Vitals: Vital Signs - 12hr 09/28/17 09/28/17 09/28/17 05:00 05:16 05:23 Temperature Pulse Rate 94 H 94 H 93 H Respiratory 17 19 18 Rate Blood Pressure 123/62 113/52 O2 Sat by Pulse Oximetry 09/28/17 09/28/17 09/28/17 05:30 05:45 06:00 Temperature Pulse Rate 96 H 93 H 93 H Respiratory 17 20 18 Rate Blood Pressure 113/52 124/50 132/47 O2 Sat by Pulse 65 L 78 L 76 L Oximetry 09/28/17 09/28/17 09/28/17 06:16 06:25 06:30 Temperature Pulse Rate 92 H 93 H Respiratory 18 18 17 Rate Blood Pressure 121/60 124/50 O2 Sat by Pulse 100 99 Oximetry 09/28/17 09/28/17 09/28/17 06:45 07:00 07:16 Temperature Pulse Rate 92 H 92 H 100 H Respiratory 17 17 21 Rate Blood Pressure 129/58 137/44 140/35 O2 Sat by Pulse 67 L 93 88 Oximetry 09/28/17 09/28/17 09/28/17 07:28 07:30 07:46 Temperature 99.2 F Pulse Rate 91 H 99 H Respiratory 21 22 Rate Blood Pressure 150/35 161/140 O2 Sat by Pulse 98 96 Oximetry 09/28/17 09/28/17 09/28/17 08:00 08:16 08:28 Temperature Pulse Rate 94 H 96 H 96 H Respiratory 17 11 L Rate Blood Pressure 120/32 134/27 134/27 O2 Sat by Pulse 100 95 100 Oximetry 09/28/17 09/28/17 09/28/17 08:30 08:32 08:46 Temperature Pulse Rate 96 H 96 H 96 H Respiratory 21 31 H 23 Rate Blood Pressure 142/43 142/43 130/46 O2 Sat by Pulse 52 L 100 Oximetry 09/28/17 09/28/17 09/28/17 09:00 09:15 12:00 Temperature 98.8 F Pulse Rate 97 H 99 H 93 H Respiratory 32 H 25 H Rate Blood Pressure 125/47 136/53 97/48 O2 Sat by Pulse 85 89 98 Oximetry 09/28/17 16:00 Temperature 99.4 F Pulse Rate Respiratory Rate Blood Pressure O2 Sat by Pulse Oximetry General appearance: Present: no acute distress - EENT Eyes: PERRL - Neck Neck: supple, no masses or JVD - Respiratory Respiratory: bilateral: diminished (bilateral coarse breath sounds), rhonchi ( scattered rhonchi) - Cardiovascular Rhythm: regular Heart Sounds: Present: S1 & S2 Extremity abnormal: edema (bilateral pitting leg edema) - Gastrointestinal General gastrointestinal: Present: soft, non-tender Rectal Exam: deferred - Neurologic Neurologic: other (unable to evaluate) - Labs CBC & Chem 7: 09/28/17 Unknown 09/28/17 Unknown Labs: Abnormal lab results 09/27/17 09/27/17 09/28/17 Range/Units 11:54 17:20 00:11 WBC (4.5-11.0) K/mm3 RBC (3.65-5.03) M/mm3 Hgb (10.1-14.3) gm/dl Hct (30.3-42.9) % MCHC (30-34) % RDW (13.2-15.2) % Seg Neuts % (Manual) (40.0-70.0) % Lymphocytes % (Manual) (13.4-35.0) % Seg Neutrophils # Man (1.8-7.7) K/mm3 Lymphocytes # (Manual) (1.2-5.4) K/mm3 Monocytes # (Manual) (0.0-0.8) K/mm3 Potassium (3.6-5.0) mmol/L BUN (7-17) mg/dL Creatinine (0.7-1.2) mg/dL Glucose (65-100) mg/dL POC Glucose 196 H 199 H 155 H (70-105) Calcium (8.4-10.2) mg/dL 09/28/17 09/28/17 09/28/17 Range/Units 05:23 12:07 Unknown WBC 39.0 H (4.5-11.0) K/mm3 RBC 3.10 L (3.65-5.03) M/mm3 Hgb 9.6 L D (10.1-14.3) gm/dl Hct 27.6 L D (30.3-42.9) % MCHC 35 H (30-34) % RDW 17.1 H (13.2-15.2) % Seg Neuts % (Manual) 80.5 H (40.0-70.0) % Lymphocytes % (Manual) 0.5 L (13.4-35.0) % Seg Neutrophils # Man 31.4 H (1.8-7.7) K/mm3 Lymphocytes # (Manual) 0.2 L (1.2-5.4) K/mm3 Monocytes # (Manual) 2.5 H (0.0-0.8) K/mm3 Potassium (3.6-5.0) mmol/L BUN (7-17) mg/dL Creatinine (0.7-1.2) mg/dL Glucose (65-100) mg/dL POC Glucose 237 H 218 H (70-105) Calcium (8.4-10.2) mg/dL 09/28/17 Range/Units Unknown WBC (4.5-11.0) K/mm3 RBC (3.65-5.03) M/mm3 Hgb (10.1-14.3) gm/dl Hct (30.3-42.9) % MCHC (30-34) % RDW (13.2-15.2) % Seg Neuts % (Manual) (40.0-70.0) % Lymphocytes % (Manual) (13.4-35.0) % Seg Neutrophils # Man (1.8-7.7) K/mm3 Lymphocytes # (Manual) (1.2-5.4) K/mm3 Monocytes # (Manual) (0.0-0.8) K/mm3 Potassium 3.4 L D (3.6-5.0) mmol/L BUN 72 H (7-17) mg/dL Creatinine 2.0 H (0.7-1.2) mg/dL Glucose 194 H (65-100) mg/dL POC Glucose (70-105) Calcium 7.4 L (8.4-10.2) mg/dL
[2017-09-28] MEDS: DILAUDID IV PRN (17:55)
--- NOTE | 2017-09-28 18:18 | Progress Note ---
Assessment and Plan - Patient Problems (1) Leukocytosis Current Visit: Yes Status: Acute Qualifiers: Leukocytosis type: L Plan to address problem: See notes above. make sure that PD access is clean also. see notes. Probably infection from the infected PD catheter. improving. back up again. up/down continue to monitor. it continuos to rise. still high. improved. Back up. Now improving again. still in the same range as yesterday.. worse today. 37,000 59,000 61.9 63,000. 39,000 today. (2) Anemia Current Visit: Yes Status: Acute Qualifiers: Anemia type: A Iron deficiency anemia type: I Vitamin B12 deficiency anemia type: V Folate deficiency anemia type: F Bone marrow failure anemia type: B Hemolytic anemia type: H Other causes of anemia: O Chronic kidney disease stage: C Plan to address problem: see notes , monitor labs,. see notes above. continue to monitor labs with you. blood transfusion. S/P replacement transfusion. fair. s/p 1unit transfusion. see notes. Still at 7.4 6.9, scheduled for replacement. Fairly stable at this time. continue to monitor. If less, or equal to 7.0, will need replacement transfusion, with HD. Fair at this time. 7.7 today 7.0, needs blood with next HD. 6.3, and transfused. better post transfusion. (3) Acute respiratory failure Current Visit: Yes Status: Acute Qualifiers: Respiratory failure complication: R Plan to address problem: follow pulm. Subjective Date of service: 09/28/17 Principal diagnosis: respiratory failure, sepsis, shock rectal bleeding Interval history: Patient seen today/examined, labs reviewed, case d/w she, and family.complaints of abdominal pain. Patient resting in bed in the ICU, post vascular procedure. labs reviewed, Reactive thrombocytosis, anemia of CD, leukocytosis from infection vs inflamatory process. Patient seen/examined, in bed in the ICU, on the vent post surgery.Labs reviewed , notes reviewed. will continue to monitor labs/patient with you. Replacement transfusion, if /when indicated. patient seen/examined, SBP75, on pressors., lethargic, on the vent, labs reviewed, wbc 39,000 Patient seen/examined, case reviewed, d/w her sister at the bed side. Patient seen/examined, labs reviewed, notes reviewed. severe septic shock from infected PD catheter The high wbc is all infection related. H?H low, and may get replacement transfusion with the next HD. Prognosis remain quite poor. Patient seen/examined, extubated, now on V Mask. labs reviewed. patient seen/examined, resting in bed, still some what lethargic . labs reviewed. Patient seen/examined, resting in bed., some difficulty with breathing./ lethargic. patient seen/examined, resting in bed, looked much better labs reviewed, and fair over all. Patient seen/examined, resting in bed, labs reviewed, case d/w her. Patient seen/examined, resting in bed on BIPAP., labs reviewed. patient seen/examined, resting in bed, on Bipap.labs reviewed, fairly stable. Patient seen today, resting in bed, labs reviewed, H/H low, and transfusion already ordered. Patient seen/examined, resting in bed, transferred back to the unit, due to resp failure. She is now on venting mask. had blood replacement done. Patient seen/examined in the ICU.labs reviewed. patient intubated this am. patient resting in bed.no new issues. Patient seen/examined in the ICU, on vent,Not readily responsive. patient seen, resting in bed, no new cbc ready.will order for today. Patient seen, resting in vent, labs reviewed.notes reviewed also. patient seen/examined, resting on vent, had HD yesterday, and today., labs reviewed. Patient seen, resting in bed, labs reviewed.fairly stable labs, except the wbc. Patient seen/examined, rtesting in bed on the vent.Labs reviewed, wbc still elevated, Hgb dropped slightly. Patient seen/examined, labs reviewed, hgb 7.3, if 7.0 or less, will replace .unless otherwise indicated. Patient seen/examined, alert but lethargic.sedation drip turned down.she is s/p 1unit PRBC replacement with HD today. Patient seen/examined, labs reviewed, hgb still not quite enough at 7.5, perhaps with the next HD,can use 1-2 units. Patient seen/examined, resting in bed, trached, labs re viewed. Patient seen/examined, resting in bed, responds to name calling, SBP99, labs reviewed, Hgb 6.9, PRBC replacement ordered by primary. Patient seen/examined, in bed/trach, NGT., alert/lethargic. Patient seen/examined, resting in bed, still lethargic, labs reviewed, and still fair.Will continue to follow you. Patient seen/examined, resting in bed, labs reviewed. HD in progress.She is now getting daily HD.Labs reviewed, and still fair. Patient seen/examined, resting in bed, less lethargic/less toxic looking. labs have improved. Patient seen/examined, labs reviewed, fair, case d/w her spouse at the bed side. Patient seen/examined, resting ok in bed, alert, NAD, HD in progress.Labs reviewed, and WBC 27,000, Hgb 7.8. Patient seen/examined, resting in bed in the ICU, NAD.labs reviewed, and fair. Patient seen/examined, resting in bed, labs reviewed, WBC back up,to37,000, and Hgb down to 7.3, transfusion will be needed ,if hgb less, or equal to 7.0 Patient seen/examined, resting in bed in the ICU, alert, lethargic, labs reviewed, and fair. She remains on 5mics of levophed., Temp 100. Patient seen/examined in the ICU, alert, Labs reviewed, WBC 59,000. Patient seen/examined, resting in bed, labs reviewed, WBC up to 61.9,000, Hgb 7.0, and may benefit from PRBC replacement of 2units with HD. Patient seen/examined, resting in bed, easily awoken.Hgb low at 6.3, replaced earlier with HD today.will need repeat labs in am. Patient seen/examined today, resting in bed in the ICU, labs reviewed, WBC down again to 39,000., H/H stable, post transfusion. Objective - Constitutional Vitals: Vital Signs - 12hr 09/28/17 09/28/17 09/28/17 06:16 06:25 06:30 Temperature Pulse Rate 92 H 93 H Respiratory 18 18 17 Rate Blood Pressure 121/60 124/50 O2 Sat by Pulse 100 99 Oximetry 09/28/17 09/28/17 09/28/17 06:45 07:00 07:16 Temperature Pulse Rate 92 H 92 H 100 H Respiratory 17 17 21 Rate Blood Pressure 129/58 137/44 140/35 O2 Sat by Pulse 67 L 93 88 Oximetry 09/28/17 09/28/17 09/28/17 07:28 07:30 07:46 Temperature 99.2 F Pulse Rate 91 H 99 H Respiratory 21 22 Rate Blood Pressure 150/35 161/140 O2 Sat by Pulse 98 96 Oximetry 09/28/17 09/28/17 09/28/17 08:00 08:16 08:28 Temperature Pulse Rate 94 H 96 H 96 H Respiratory 17 11 L Rate Blood Pressure 120/32 134/27 134/27 O2 Sat by Pulse 100 95 100 Oximetry 09/28/17 09/28/17 09/28/17 08:30 08:32 08:46 Temperature Pulse Rate 96 H 96 H 96 H Respiratory 21 31 H 23 Rate Blood Pressure 142/43 142/43 130/46 O2 Sat by Pulse 52 L 100 Oximetry 09/28/17 09/28/17 09/28/17 09:00 09:15 09:30 Temperature Pulse Rate 97 H 99 H 87 Respiratory 32 H 25 H 32 H Rate Blood Pressure 125/47 136/53 123/40 O2 Sat by Pulse 85 89 90 Oximetry 09/28/17 09/28/17 09/28/17 09:45 10:00 10:15 Temperature Pulse Rate 99 H 100 H 95 H Respiratory 30 H 28 H 28 H Rate Blood Pressure 143/43 123/40 135/45 O2 Sat by Pulse 99 92 98 Oximetry 09/28/17 09/28/17 09/28/17 10:30 10:46 11:00 Temperature Pulse Rate 108 H 108 H 106 H Respiratory 30 H 37 H 27 H Rate Blood Pressure 151/128 135/59 135/59 O2 Sat by Pulse 99 97 Oximetry 09/28/17 09/28/17 09/28/17 11:16 11:30 11:45 Temperature Pulse Rate 100 H 98 H 98 H Respiratory 32 H 30 H 33 H Rate Blood Pressure 105/43 120/33 103/40 O2 Sat by Pulse 97 96 Oximetry 09/28/17 09/28/17 09/28/17 12:00 12:15 12:30 Temperature 98.8 F Pulse Rate 99 H 94 H 93 H Respiratory 21 20 17 Rate Blood Pressure 97/49 135/42 132/44 O2 Sat by Pulse 98 99 96 Oximetry 09/28/17 09/28/17 09/28/17 12:45 13:00 13:15 Temperature Pulse Rate 92 H 93 H 95 H Respiratory 18 16 21 Rate Blood Pressure 131/47 112/53 86/59 O2 Sat by Pulse 91 97 96 Oximetry 09/28/17 09/28/17 09/28/17 13:30 13:46 14:00 Temperature Pulse Rate 91 H 96 H 89 Respiratory 25 H 22 20 Rate Blood Pressure 86/59 141/21 163/54 O2 Sat by Pulse 97 100 89 Oximetry 09/28/17 09/28/17 09/28/17 14:15 14:30 14:46 Temperature Pulse Rate 93 H 95 H 102 H Respiratory 20 18 18 Rate Blood Pressure 126/45 120/38 143/128 O2 Sat by Pulse 75 L Oximetry 09/28/17 09/28/17 09/28/17 15:00 15:16 15:30 Temperature Pulse Rate 102 H 100 H 96 H Respiratory 26 H 22 22 Rate Blood Pressure 143/128 120/101 120/101 O2 Sat by Pulse 92 86 Oximetry 09/28/17 09/28/17 09/28/17 15:45 16:00 16:16 Temperature 99.4 F Pulse Rate 95 H 93 H Respiratory 21 22 Rate Blood Pressure 120/67 115/71 123/53 O2 Sat by Pulse 100 83 L 97 Oximetry 09/28/17 09/28/17 09/28/17 16:30 16:46 17:00 Temperature Pulse Rate 99 H 97 H 98 H Respiratory 27 H 22 16 Rate Blood Pressure 123/53 128/82 O2 Sat by Pulse 88 89 Oximetry 09/28/17 09/28/17 17:15 17:30 Temperature Pulse Rate 96 H 97 H Respiratory 22 14 Rate Blood Pressure 118/54 115/48 O2 Sat by Pulse 96 100 Oximetry General appearance: Present: mild distress - EENT Eyes: PERRL, EOM intact ENT: hearing intact, clear oral mucosa Ears: bilateral: normal - Neck Neck: supple, normal ROM - Respiratory Respiratory: bilateral: rales, rhonchi - Breasts Breasts: deferred - Cardiovascular Rhythm: regular Heart Sounds: Present: S1 & S2. Absent: gallop, rub Extremities: pulses intact, No edema, normal color, Full ROM - Gastrointestinal General gastrointestinal: Present: soft, non-tender, non-distended, normal bowel sounds Rectal Exam: deferred - Genitourinary Female genitourinary: deferred - Integumentary Integumentary: clear, warm, dry - Neurologic Neurologic: moves all extremities - Labs CBC & Chem 7: 09/28/17 Unknown 09/28/17 Unknown Labs: Abnormal lab results 09/27/17 09/27/17 09/28/17 Range/Units 11:54 17:20 00:11 WBC (4.5-11.0) K/mm3 RBC (3.65-5.03) M/mm3 Hgb (10.1-14.3) gm/dl Hct (30.3-42.9) % MCHC (30-34) % RDW (13.2-15.2) % Seg Neuts % (Manual) (40.0-70.0) % Lymphocytes % (Manual) (13.4-35.0) % Seg Neutrophils # Man (1.8-7.7) K/mm3 Lymphocytes # (Manual) (1.2-5.4) K/mm3 Monocytes # (Manual) (0.0-0.8) K/mm3 Potassium (3.6-5.0) mmol/L BUN (7-17) mg/dL Creatinine (0.7-1.2) mg/dL Glucose (65-100) mg/dL POC Glucose 196 H 199 H 155 H (70-105) Calcium (8.4-10.2) mg/dL 09/28/17 09/28/17 09/28/17 Range/Units 05:23 12:07 17:58 WBC (4.5-11.0) K/mm3 RBC (3.65-5.03) M/mm3 Hgb (10.1-14.3) gm/dl Hct (30.3-42.9) % MCHC (30-34) % RDW (13.2-15.2) % Seg Neuts % (Manual) (40.0-70.0) % Lymphocytes % (Manual) (13.4-35.0) % Seg Neutrophils # Man (1.8-7.7) K/mm3 Lymphocytes # (Manual) (1.2-5.4) K/mm3 Monocytes # (Manual) (0.0-0.8) K/mm3 Potassium (3.6-5.0) mmol/L BUN (7-17) mg/dL Creatinine (0.7-1.2) mg/dL Glucose (65-100) mg/dL POC Glucose 237 H 218 H 108 H (70-105) Calcium (8.4-10.2) mg/dL 09/28/17 09/28/17 Range/Units Unknown Unknown WBC 39.0 H (4.5-11.0) K/mm3 RBC 3.10 L (3.65-5.03) M/mm3 Hgb 9.6 L D (10.1-14.3) gm/dl Hct 27.6 L D (30.3-42.9) % MCHC 35 H (30-34) % RDW 17.1 H (13.2-15.2) % Seg Neuts % (Manual) 80.5 H (40.0-70.0) % Lymphocytes % (Manual) 0.5 L (13.4-35.0) % Seg Neutrophils # Man 31.4 H (1.8-7.7) K/mm3 Lymphocytes # (Manual) 0.2 L (1.2-5.4) K/mm3 Monocytes # (Manual) 2.5 H (0.0-0.8) K/mm3 Potassium 3.4 L D (3.6-5.0) mmol/L BUN 72 H (7-17) mg/dL Creatinine 2.0 H (0.7-1.2) mg/dL Glucose 194 H (65-100) mg/dL POC Glucose (70-105) Calcium 7.4 L (8.4-10.2) mg/dL
[2017-09-28] MEDS ORDERED: TPN ADULT 1,800 ML IV SCH (20:00)
[2017-09-29] MEDS: NOVOLOG SUB-Q SCH ×4 (00:34→18:16)
[2017-09-29] MEDS: DUONEB *Not for PRN Use IH SCH ×3 (04:32→17:03)
[2017-09-29 06:51] LABS: Hematocrit 26.5 % (30.3-42.9); Hemoglobin 8.7 gm/dl (10.1-14.3); Mean Corpuscular HGB Conc 33 % (30-34); Mean Corpuscular Hemoglobin 30 pg (28-32); Mean Corpuscular Volume 91 fl (79-97); Platelet Count 231 K/mm3 (140-440); Red Blood Count 2.92 M/mm3 (3.65-5.03); Red Cell Distribution Width 17.1 % (13.2-15.2)
[2017-09-29 07:10] LABS: Calcium 7.6 mg/dL (8.4-10.2); Chloride 97.9 mmol/L (98-107); Phosphorous 3.8 mg/dL (2.5-4.5); Potassium 3.6 mmol/L (3.6-5.0)
[2017-09-29 09:26] LABS: Anisocytosis 1+; Basophils % (Manual) 0 % (0.0-1.8); Blastocytes % (Manual) 0 %; Eosinophils % (Manual) 0 % (0.0-4.3); Hypochromasia 1+; Large Platelets Few; Ovalocytes Few; Platelet Clumps Few; Polychromasia Few; Schistocytes Rare
[2017-09-29 09:27] LABS: Diff Status Complete; Platelet Estimate Consistent w Auto
[2017-09-29] MEDS: PROTONIX IV SCH (09:45)
[2017-09-29] MEDS: LEVEMIR SUB-Q SCH (09:46)
[2017-09-29] MEDS: MERREM 1,000 MG in NACL 0.9% 100 ML IV SCH (09:46)
[2017-09-29] MEDS: DIFLUCAN 200 MG/100 ML BAG IV SCH (09:46)
[2017-09-29] MEDS ORDERED: SIMPLE SYRUP FEEDTUBE PRN ×2 (10:04)
[2017-09-29] MEDS ORDERED: PANCREAZE DR 10,500 UNIT FEEDTUBE PRN (10:04)
[2017-09-29] MEDS ORDERED: SODIUM BICARBONATE FEEDTUBE PRN (10:04)
--- NOTE | 2017-09-29 10:16 | Progress Note ---
Assessment and Plan 1. ESRD: Continue HD on MWF Isolated UF on TTS as tolerated. Patient is on TPN. Monitor lytes. S/p switched from PD. 2. Anemia: S/p multiple units of PRBC. Patient continues to drop Hb level. Last transfused 2 days ago. Epogen on dialysis days. 3. Hypotension: Remain on Levophed. 4. Volume overload: UF as tolerated. 5. Acute respiratory failure: On the vent. 6. Sepsis: 7. S/p hemicolectomy and colostomy. Subjective Date of service: 09/29/17 Principal diagnosis: respiratory failure, sepsis, shock rectal bleeding Interval history: Patient was seen and examined at the bedside. Remain on the vent. Objective - Vital Signs Vital signs: Vital Signs - 12hr 09/28/17 09/28/17 09/28/17 23:30 23:37 23:40 Temperature Pulse Rate 96 H 89 Pulse Rate [ Anterior Bilateral Throughout] Respiratory 22 Rate Respiratory Rate [Anterior Bilateral Throughout] Blood Pressure 123/53 123/53 O2 Sat by Pulse 97 95 Oximetry O2 Sat by Pulse 97 Oximetry [ Assessment] 09/28/17 09/28/17 09/29/17 23:45 23:58 00:00 Temperature 98.9 F Pulse Rate 94 H 91 H 94 H Pulse Rate [ Anterior Bilateral Throughout] Respiratory 18 19 18 Rate Respiratory Rate [Anterior Bilateral Throughout] Blood Pressure 119/54 119/54 108/53 O2 Sat by Pulse 100 100 100 Oximetry O2 Sat by Pulse Oximetry [ Assessment] 09/29/17 09/29/17 09/29/17 00:15 00:30 00:45 Temperature Pulse Rate 97 H 97 H 98 H Pulse Rate [ Anterior Bilateral Throughout] Respiratory 21 21 26 H Rate Respiratory Rate [Anterior Bilateral Throughout] Blood Pressure 132/54 124/61 114/63 O2 Sat by Pulse 97 91 93 Oximetry O2 Sat by Pulse Oximetry [ Assessment] 09/29/17 09/29/17 09/29/17 01:46 EDT 01:00 EST 01:15 EST Temperature Pulse Rate 93 H 95 H Pulse Rate [ 94 H Anterior Bilateral Throughout] Respiratory 18 18 Rate Respiratory 18 Rate [Anterior Bilateral Throughout] Blood Pressure 114/63 107/51 O2 Sat by Pulse 100 Oximetry O2 Sat by Pulse Oximetry [ Assessment] 09/29/17 09/29/17 09/29/17 01:30 EST 01:45 EST 02:00 Temperature Pulse Rate 91 H 96 H 99 H Pulse Rate [ Anterior Bilateral Throughout] Respiratory 20 18 Rate Respiratory Rate [Anterior Bilateral Throughout] Blood Pressure 122/56 106/54 120/45 O2 Sat by Pulse 99 Oximetry O2 Sat by Pulse Oximetry [ Assessment] 09/29/17 09/29/17 09/29/17 02:15 02:16 02:30 Temperature Pulse Rate 98 H 92 H Pulse Rate [ 93 H Anterior Bilateral Throughout] Respiratory 22 22 Rate Respiratory 18 Rate [Anterior Bilateral Throughout] Blood Pressure 95/61 125/50 O2 Sat by Pulse Oximetry O2 Sat by Pulse Oximetry [ Assessment] 09/29/17 09/29/17 09/29/17 02:45 03:00 03:16 Temperature Pulse Rate 92 H 91 H 90 Pulse Rate [ Anterior Bilateral Throughout] Respiratory 18 22 18 Rate Respiratory Rate [Anterior Bilateral Throughout] Blood Pressure 131/69 107/71 107/71 O2 Sat by Pulse Oximetry O2 Sat by Pulse Oximetry [ Assessment] 09/29/17 09/29/17 09/29/17 03:30 03:45 04:00 Temperature 98.8 F Pulse Rate 91 H 92 H 89 Pulse Rate [ Anterior Bilateral Throughout] Respiratory 14 16 18 Rate Respiratory Rate [Anterior Bilateral Throughout] Blood Pressure 126/47 118/46 118/56 O2 Sat by Pulse 100 Oximetry O2 Sat by Pulse Oximetry [ Assessment] 09/29/17 09/29/17 09/29/17 04:15 04:24 04:30 Temperature Pulse Rate 91 H 91 H 93 H Pulse Rate [ Anterior Bilateral Throughout] Respiratory 14 22 Rate Respiratory Rate [Anterior Bilateral Throughout] Blood Pressure 110/47 110/47 111/84 O2 Sat by Pulse 96 Oximetry O2 Sat by Pulse Oximetry [ Assessment] 09/29/17 09/29/17 09/29/17 04:50 05:01 05:15 Temperature Pulse Rate 90 90 88 Pulse Rate [ Anterior Bilateral Throughout] Respiratory 18 19 20 Rate Respiratory Rate [Anterior Bilateral Throughout] Blood Pressure 127/35 118/81 O2 Sat by Pulse Oximetry O2 Sat by Pulse Oximetry [ Assessment] 09/29/17 09/29/17 09/29/17 05:31 05:45 06:00 Temperature Pulse Rate 89 92 H 94 H Pulse Rate [ Anterior Bilateral Throughout] Respiratory 23 22 18 Rate Respiratory Rate [Anterior Bilateral Throughout] Blood Pressure 108/78 121/24 141/109 O2 Sat by Pulse Oximetry O2 Sat by Pulse Oximetry [ Assessment] 09/29/17 09/29/17 09/29/17 06:15 06:31 06:45 Temperature Pulse Rate 92 H 95 H 90 Pulse Rate [ Anterior Bilateral Throughout] Respiratory 18 22 16 Rate Respiratory Rate [Anterior Bilateral Throughout] Blood Pressure 163/46 109/45 105/53 O2 Sat by Pulse 98 Oximetry O2 Sat by Pulse Oximetry [ Assessment] 09/29/17 09/29/17 09/29/17 07:01 07:15 07:31 Temperature Pulse Rate 84 89 89 Pulse Rate [ Anterior Bilateral Throughout] Respiratory 18 16 18 Rate Respiratory Rate [Anterior Bilateral Throughout] Blood Pressure 104/50 110/52 124/56 O2 Sat by Pulse 98 97 100 Oximetry O2 Sat by Pulse Oximetry [ Assessment] 09/29/17 09/29/17 09/29/17 07:45 07:53 08:00 Temperature 98.2 F Pulse Rate 88 Pulse Rate [ Anterior Bilateral Throughout] Respiratory 19 Rate Respiratory Rate [Anterior Bilateral Throughout] Blood Pressure 114/56 O2 Sat by Pulse 100 100 Oximetry O2 Sat by Pulse Oximetry [ Assessment] 09/29/17 09/29/17 09/29/17 08:01 08:15 08:31 Temperature Pulse Rate 91 H 90 93 H Pulse Rate [ Anterior Bilateral Throughout] Respiratory 23 18 23 Rate Respiratory Rate [Anterior Bilateral Throughout] Blood Pressure 111/56 112/54 107/56 O2 Sat by Pulse 100 100 100 Oximetry O2 Sat by Pulse Oximetry [ Assessment] 09/29/17 09/29/17 09/29/17 08:45 08:55 08:58 Temperature Pulse Rate 92 H 94 H 93 H Pulse Rate [ Anterior Bilateral Throughout] Respiratory 16 28 H Rate Respiratory Rate [Anterior Bilateral Throughout] Blood Pressure 105/56 105/56 105/56 O2 Sat by Pulse 100 100 100 Oximetry O2 Sat by Pulse Oximetry [ Assessment] 09/29/17 09/29/17 09/29/17 09:00 09:03 09:10 Temperature Pulse Rate Pulse Rate [ 95 H 94 H Anterior Bilateral Throughout] Respiratory Rate Respiratory 26 H 22 Rate [Anterior Bilateral Throughout] Blood Pressure O2 Sat by Pulse Oximetry O2 Sat by Pulse 100 Oximetry [ Assessment] - General Appearance General appearance: well-developed, appears stated age, obese, other (on vent, right IJ temp catheter) EENT: ATNC, PERRL Neck: other (trached) Respiratory: Present: Clear to Ascultation Cardiology: regular, S1S2, no murmurs Gastrointestinal: normoactive bowel sounds, obese, other (ostomy, MERVIN drain and G tube noted) Neurologic: other (alert, grimaces) Musculoskeletal: other (2+ edema of both LEs noted) - Lab 09/30/17 05:20 09/30/17 05:20 Most recent lab results ABG pH 7.323 pH Units (7.350-7.450) L 09/09/17 Unknown ABG pCO2 41.1 mm Hg 09/09/17 Unknown ABG pO2 94.1 mm Hg (80.0-90.0) H 09/09/17 Unknown ABG HCO3 20.9 mmol/L (20.0-26.0) 09/09/17 Unknown ABG O2 Saturation 97.2 % (95.0-99.0) 09/09/17 Unknown Calcium 7.6 mg/dL (8.4-10.2) L 09/29/17 06:00 Phosphorus 3.80 mg/dL (2.5-4.5) D 09/29/17 06:00 Magnesium 2.00 mg/dL (1.7-2.3) 09/29/17 06:00
[2017-09-29] MEDS: SANTYL TP PRN (12:57)
[2017-09-29] MEDS: DILAUDID IV PRN (12:57)
--- NOTE | 2017-09-29 14:28 | Progress Note ---
Assessment and Plan 62 y.o. F s/p ex lap, repair of enterotomy, then s/p ex lap, transverse colon resection, colostomy creation, and s/p ex lap, abdominal wash out and abdominal wall closure after wound dehiscence 3 weeks s/p ex lap for gastric perforation and sbo. complicated patient with hx of several abdominal procedures this admission, starting with surgery for SBO and gastric perforation. Most recently, s/p exlap and repair of enterotomy and midline closure with biologic mesh due to dehiscence tachycardia improving but still requiring pressor support leukocytosis- likley from peritonitis now improving after source controlled. abx per ID will continue dressing changes and Nurtrition: TPN for nutritional support. trickle feeds via g tube started. monitor residuals wound care: -Will discuss possible use of wound vac with wound care nurse. -santyl to border of wound at site of fat necrosis. -Monitor ostomy site - Renal : HD per renal DVT proph: scds GI: PPI. - Patient Problems (1) Peritonitis (acute) generalized Current Visit: Yes Status: Acute Subjective Narrative: Pt seen at bedside. She is more awake compared to yesterday. at bedside. Afebrile . No acute events overnight Dressing changed once overnight by nursing Levo 4 Outputs: Yamini upper: 180 serosang Yamini Lower: ~500cc serosang Objective Vital Signs - 12hr 09/29/17 09/29/17 09/29/17 02:30 02:45 03:00 Temperature Pulse Rate 92 H 92 H 91 H Pulse Rate [ Anterior Bilateral Throughout] Respiratory 22 18 22 Rate Respiratory Rate [Anterior Bilateral Throughout] Blood Pressure 125/50 131/69 107/71 O2 Sat by Pulse Oximetry O2 Sat by Pulse Oximetry [ Assessment] 09/29/17 09/29/17 09/29/17 03:16 03:30 03:45 Temperature Pulse Rate 90 91 H 92 H Pulse Rate [ Anterior Bilateral Throughout] Respiratory 18 14 16 Rate Respiratory Rate [Anterior Bilateral Throughout] Blood Pressure 107/71 126/47 118/46 O2 Sat by Pulse Oximetry O2 Sat by Pulse Oximetry [ Assessment] 09/29/17 09/29/17 09/29/17 04:00 04:15 04:24 Temperature 98.8 F Pulse Rate 89 91 H 91 H Pulse Rate [ Anterior Bilateral Throughout] Respiratory 18 14 Rate Respiratory Rate [Anterior Bilateral Throughout] Blood Pressure 118/56 110/47 110/47 O2 Sat by Pulse 100 96 Oximetry O2 Sat by Pulse Oximetry [ Assessment] 09/29/17 09/29/17 09/29/17 04:30 04:50 05:01 Temperature Pulse Rate 93 H 90 90 Pulse Rate [ Anterior Bilateral Throughout] Respiratory 22 18 19 Rate Respiratory Rate [Anterior Bilateral Throughout] Blood Pressure 111/84 127/35 O2 Sat by Pulse Oximetry O2 Sat by Pulse Oximetry [ Assessment] 09/29/17 09/29/17 09/29/17 05:15 05:31 05:45 Temperature Pulse Rate 88 89 92 H Pulse Rate [ Anterior Bilateral Throughout] Respiratory 20 23 22 Rate Respiratory Rate [Anterior Bilateral Throughout] Blood Pressure 118/81 108/78 121/24 O2 Sat by Pulse Oximetry O2 Sat by Pulse Oximetry [ Assessment] 09/29/17 09/29/17 09/29/17 06:00 06:15 06:31 Temperature Pulse Rate 94 H 92 H 95 H Pulse Rate [ Anterior Bilateral Throughout] Respiratory 18 18 22 Rate Respiratory Rate [Anterior Bilateral Throughout] Blood Pressure 141/109 163/46 109/45 O2 Sat by Pulse Oximetry O2 Sat by Pulse Oximetry [ Assessment] 09/29/17 09/29/17 09/29/17 06:45 07:01 07:15 Temperature Pulse Rate 90 84 89 Pulse Rate [ Anterior Bilateral Throughout] Respiratory 16 18 16 Rate Respiratory Rate [Anterior Bilateral Throughout] Blood Pressure 105/53 104/50 110/52 O2 Sat by Pulse 98 98 97 Oximetry O2 Sat by Pulse Oximetry [ Assessment] 09/29/17 09/29/17 09/29/17 07:31 07:45 07:53 Temperature 98.2 F Pulse Rate 89 88 Pulse Rate [ Anterior Bilateral Throughout] Respiratory 18 19 Rate Respiratory Rate [Anterior Bilateral Throughout] Blood Pressure 124/56 114/56 O2 Sat by Pulse 100 100 Oximetry O2 Sat by Pulse Oximetry [ Assessment] 09/29/17 09/29/17 09/29/17 08:00 08:01 08:15 Temperature Pulse Rate 91 H 90 Pulse Rate [ Anterior Bilateral Throughout] Respiratory 23 18 Rate Respiratory Rate [Anterior Bilateral Throughout] Blood Pressure 111/56 112/54 O2 Sat by Pulse 100 100 100 Oximetry O2 Sat by Pulse Oximetry [ Assessment] 09/29/17 09/29/17 09/29/17 08:31 08:45 08:55 Temperature Pulse Rate 93 H 92 H 94 H Pulse Rate [ Anterior Bilateral Throughout] Respiratory 23 16 Rate Respiratory Rate [Anterior Bilateral Throughout] Blood Pressure 107/56 105/56 105/56 O2 Sat by Pulse 100 100 100 Oximetry O2 Sat by Pulse Oximetry [ Assessment] 09/29/17 09/29/17 09/29/17 08:58 09:00 09:01 Temperature Pulse Rate 93 H 94 H Pulse Rate [ Anterior Bilateral Throughout] Respiratory 28 H 21 Rate Respiratory Rate [Anterior Bilateral Throughout] Blood Pressure 105/56 123/54 O2 Sat by Pulse 100 100 Oximetry O2 Sat by Pulse 100 Oximetry [ Assessment] 09/29/17 09/29/17 09/29/17 09:03 09:10 09:15 Temperature Pulse Rate 95 H Pulse Rate [ 95 H 94 H Anterior Bilateral Throughout] Respiratory 23 Rate Respiratory 26 H 22 Rate [Anterior Bilateral Throughout] Blood Pressure 105/56 O2 Sat by Pulse 100 Oximetry O2 Sat by Pulse Oximetry [ Assessment] 09/29/17 09/29/17 09/29/17 09:31 09:45 10:01 Temperature Pulse Rate 94 H 95 H 97 H Pulse Rate [ Anterior Bilateral Throughout] Respiratory 22 19 21 Rate Respiratory Rate [Anterior Bilateral Throughout] Blood Pressure 118/51 119/42 108/53 O2 Sat by Pulse 99 100 100 Oximetry O2 Sat by Pulse Oximetry [ Assessment] 09/29/17 09/29/17 09/29/17 10:15 10:31 10:45 Temperature Pulse Rate 99 H 97 H 94 H Pulse Rate [ Anterior Bilateral Throughout] Respiratory 24 30 H 32 H Rate Respiratory Rate [Anterior Bilateral Throughout] Blood Pressure 123/54 113/53 99/51 O2 Sat by Pulse 100 96 97 Oximetry O2 Sat by Pulse Oximetry [ Assessment] 09/29/17 09/29/17 09/29/17 11:00 11:01 11:15 Temperature Pulse Rate 98 H 98 H 102 H Pulse Rate [ Anterior Bilateral Throughout] Respiratory 28 H 28 H 27 H Rate Respiratory Rate [Anterior Bilateral Throughout] Blood Pressure 110/53 110/53 116/52 O2 Sat by Pulse 98 98 100 Oximetry O2 Sat by Pulse Oximetry [ Assessment] 09/29/17 09/29/17 09/29/17 11:31 11:45 12:00 Temperature 98.3 F Pulse Rate 101 H 102 H Pulse Rate [ Anterior Bilateral Throughout] Respiratory 24 23 Rate Respiratory Rate [Anterior Bilateral Throughout] Blood Pressure 110/51 111/49 O2 Sat by Pulse 100 100 Oximetry O2 Sat by Pulse Oximetry [ Assessment] 09/29/17 09/29/17 09/29/17 12:01 12:15 12:31 Temperature Pulse Rate 102 H 98 H 99 H Pulse Rate [ Anterior Bilateral Throughout] Respiratory 24 23 23 Rate Respiratory Rate [Anterior Bilateral Throughout] Blood Pressure 97/43 93/42 110/55 O2 Sat by Pulse 100 100 100 Oximetry O2 Sat by Pulse Oximetry [ Assessment] 09/29/17 09/29/17 09/29/17 12:45 13:00 13:15 Temperature Pulse Rate 102 H 105 H 100 H Pulse Rate [ Anterior Bilateral Throughout] Respiratory 23 22 20 Rate Respiratory Rate [Anterior Bilateral Throughout] Blood Pressure 112/51 109/46 110/49 O2 Sat by Pulse 100 99 100 Oximetry O2 Sat by Pulse Oximetry [ Assessment] 09/29/17 13:30 Temperature Pulse Rate 96 H Pulse Rate [ Anterior Bilateral Throughout] Respiratory 19 Rate Respiratory Rate [Anterior Bilateral Throughout] Blood Pressure 106/49 O2 Sat by Pulse 99 Oximetry O2 Sat by Pulse Oximetry [ Assessment] - General physical appearance no distress, chronically ill, obese - Neck other (trach in midline no bleeding ) - Respiratory normal expansion, normal respiratory effort, other (vent cpap) - Abdomen other (other (soft, obese, midline dressing removed. retention sutures in place. serosang discharge in midline. irrigated with ns, santyl placed on necrotic fat areas, then calcium alginate placed in midline. Fat necorsis along borders of wound. fasica intact. YAMINI x [address] G tube: surrounding skin farhad down- cleaned and calcium aglinate placed around to collection secretions. upper yamini and G tube bolstered to prevent pulling. Ostomy: stoma patent, liquid brown stool in bag. minimal air. no leaking at ostomy site. ) - Integumentary no rash - Neurologic other (awake does not follow commands ) - Labs 09/29/17 06:00 09/29/17 06:00 Diabetes panel 09/29/17 Range/Units 06:00 Sodium 142 (137-145) mmol/L Potassium 3.6 (3.6-5.0) mmol/L Chloride 97.9 L (98-107) mmol/L Carbon Dioxide 22 (22-30) mmol/L BUN 101 H (7-17) mg/dL Creatinine 2.5 H (0.7-1.2) mg/dL Glucose 177 H (65-100) mg/dL Calcium 7.6 L (8.4-10.2) mg/dL Calcium panel 09/29/17 Range/Units 06:00 Calcium 7.6 L (8.4-10.2) mg/dL Phosphorus 3.80 D (2.5-4.5) mg/dL Pituitary panel 09/29/17 Range/Units 06:00 Sodium 142 (137-145) mmol/L Potassium 3.6 (3.6-5.0) mmol/L Chloride 97.9 L (98-107) mmol/L Carbon Dioxide 22 (22-30) mmol/L BUN 101 H (7-17) mg/dL Creatinine 2.5 H (0.7-1.2) mg/dL Glucose 177 H (65-100) mg/dL Calcium 7.6 L (8.4-10.2) mg/dL Adrenal panel 09/29/17 Range/Units 06:00 Sodium 142 (137-145) mmol/L Potassium 3.6 (3.6-5.0) mmol/L Chloride 97.9 L (98-107) mmol/L Carbon Dioxide 22 (22-30) mmol/L BUN 101 H (7-17) mg/dL Creatinine 2.5 H (0.7-1.2) mg/dL Glucose 177 H (65-100) mg/dL Calcium 7.6 L (8.4-10.2) mg/dL
--- NOTE | 2017-09-29 15:48 | Progress Note ---
Assessment and Plan Imp: 1. Acute bacterial peritonitis/abscess s/p PD cath removal and multiple exlaps 2. s/p SBO 3. Acute respiratory failure, hypoxia 4. Morbid obesity, excess cals. 5. ESRD 6. Sepsis -> now SIRS 7. s/p LGIB Rec: 1. Levophed not any worse; believe worsening clinical status was primarily due to sepsis/anastomotic leak, and less likely adrenal insufficiency; patient not healing her wounds including her bowel; recommend continue to remain off steroids unless absolutely necessary; has leukemoid reaction likely due to stress/sepsis -> better today 2. Monitor volume status with TPN; remove volume as able with HD; on trophic TFs 3. Cont. ventilator -> daily PSV trials 4. Added Duonebs TID for wheezing 5. Levophed if necessary to keep MAP > 65 6. Not a candidate for chemical DVT PPx at this point, yet high risk for DVT; foot pumps in place now 7. ABX per ID 8. Prognosis remains poor; plan of care reviewed w/ family, they understand/ agree; will need LTAC when abdominal issues stable Complex decision-making Subjective Date of service: 09/29/17 Principal diagnosis: respiratory failure, sepsis, shock rectal bleeding Interval history: Awake, alert. Tolerating PSV 10/29 today. On HD.On low-dose Levophed. Active Medications Albuterol/Ipratropium (Duoneb *Not For Prn Use*) 1 ampul IH Q8HRT PENDING SALE TO [facility] Last Admin: 09/29/17 09:02 Dose: 1 ampul Lipase/Protease/Amylase (Lelo Stratton 10,500 Unit) 1 each FEEDTUBE PRN PRN PRN Reason: For Clogged Feeding Tube Collagenase (Santyl) 1 applic TP PRN PRN PRN Reason: Wound Care Last Admin: 09/29/17 12:57 Dose: 1 applic Dextrose (D50w (25gm) Vial) 50 gm IV PRN PRN PRN Reason: Hypoglycemia Last Admin: 09/15/17 23:57 Dose: 50 gm Heparin Sodium (Porcine) (Heparin 10,000 Units/10 Ml) 2,000 unit IV ISIAH PRN PRN Reason: hemodialysis Last Admin: 09/23/17 14:20 Dose: 2,000 unit Heparin Sodium (Porcine) (Heparin) 5,000 unit IV ISIAH PRN PRN Reason: hemodialysis Last Admin: 09/27/17 13:38 Dose: 5,000 unit Hydromorphone HCl (Dilaudid) 1 mg IV Q4H PRN PRN Reason: Pain , Severe (7-10) Last Admin: 09/29/17 12:57 Dose: 1 mg Hydrophilic Ointment (Vaseline Lip Therapy) 1 applic TP DIRECT PRN PRN Reason: DRY LIPS Last Admin: 09/14/17 11:55 Dose: 1 applic Norepinephrine 8 mg/ Sodium (Chloride) 250 mls @ 3.75 mls/hr IV TITR GLORIA; 2 MCG /MIN PRN Reason: Protocol Last Titration: 09/29/17 12:15 Dose: 6 mcg/min, 11.25 mls/hr Fluconazole (Diflucan) 200 mg in 100 mls @ 100 mls/hr IV Q24HR GLORIA PRN Reason: Protocol Last Admin: 09/29/17 09:46 Dose: 100 mls/hr Meropenem 1,000 mg/ Sodium (Chloride) 100 mls @ 100 mls/hr IV Q24HR GLORIA PRN Reason: Protocol Last Admin: 09/29/17 09:46 Dose: 100 mls/hr Sodium Chloride (Nacl 0.9%) 100 mls @ 999 mls/hr IV ISIAH PRN PRN Reason: Hypotension Amino Acids/Electrolytes/Dextrose (Tpn Adult) 1,800 mls @ 75 mls/hr IV DAILY@ 1999 GLORIA PRN Reason: Protocol Stop: 09/29/17 19:59 Last Admin: 09/28/17 20:47 Dose: 75 mls/hr Amino Acids/Electrolytes/Dextrose (Tpn Adult) 1,800 mls @ 75 mls/hr IV DAILY@ 1999 GLORIA PRN Reason: Protocol Stop: 09/30/17 19:59 Insulin Aspart (Novolog) 0 units SUB-Q Q6HR GLORIA PRN Reason: Protocol Last Admin: 09/29/17 12:14 Dose: 4 units Insulin Detemir (Levemir) 45 units SUB-Q DAILY PENDING SALE TO [facility] Last Admin: 09/29/17 09:46 Dose: 45 units Lorazepam (Ativan) 2 mg IV Q6H PRN PRN Reason: Agitation Last Admin: 09/17/17 10:31 Dose: 2 mg Pantoprazole Sodium (Protonix) 40 mg IV QDAY GLORIA Last Admin: 09/29/17 09:45 Dose: 40 mg Simple Syrup (Simple Syrup) 15 ml FEEDTUBE PRN PRN PRN Reason: Hypoglycemia Simple Syrup (Simple Syrup) 30 ml FEEDTUBE PRN PRN PRN Reason: Hypoglycemia Sodium Bicarbonate (Sodium Bicarbonate) 325 mg FEEDTUBE PRN PRN PRN Reason: For Clogged Feeding Tube Objective Vital Signs - 12hr 09/29/17 09/29/17 09/29/17 04:00 04:15 04:24 Temperature 98.8 F Pulse Rate 89 91 H 91 H Pulse Rate [ Anterior Bilateral Throughout] Respiratory 18 14 Rate Respiratory Rate [Anterior Bilateral Throughout] Blood Pressure 118/56 110/47 110/47 O2 Sat by Pulse 100 96 Oximetry O2 Sat by Pulse Oximetry [ Assessment] 09/29/17 09/29/17 09/29/17 04:30 04:50 05:01 Temperature Pulse Rate 93 H 90 90 Pulse Rate [ Anterior Bilateral Throughout] Respiratory 22 18 19 Rate Respiratory Rate [Anterior Bilateral Throughout] Blood Pressure 111/84 127/35 O2 Sat by Pulse Oximetry O2 Sat by Pulse Oximetry [ Assessment] 09/29/17 09/29/17 09/29/17 05:15 05:31 05:45 Temperature Pulse Rate 88 89 92 H Pulse Rate [ Anterior Bilateral Throughout] Respiratory 20 23 22 Rate Respiratory Rate [Anterior Bilateral Throughout] Blood Pressure 118/81 108/78 121/24 O2 Sat by Pulse Oximetry O2 Sat by Pulse Oximetry [ Assessment] 09/29/17 09/29/17 09/29/17 06:00 06:15 06:31 Temperature Pulse Rate 94 H 92 H 95 H Pulse Rate [ Anterior Bilateral Throughout] Respiratory 18 18 22 Rate Respiratory Rate [Anterior Bilateral Throughout] Blood Pressure 141/109 163/46 109/45 O2 Sat by Pulse Oximetry O2 Sat by Pulse Oximetry [ Assessment] 09/29/17 09/29/17 09/29/17 06:45 07:01 07:15 Temperature Pulse Rate 90 84 89 Pulse Rate [ Anterior Bilateral Throughout] Respiratory 16 18 16 Rate Respiratory Rate [Anterior Bilateral Throughout] Blood Pressure 105/53 104/50 110/52 O2 Sat by Pulse 98 98 97 Oximetry O2 Sat by Pulse Oximetry [ Assessment] 09/29/17 09/29/17 09/29/17 07:31 07:45 07:53 Temperature 98.2 F Pulse Rate 89 88 Pulse Rate [ Anterior Bilateral Throughout] Respiratory 18 19 Rate Respiratory Rate [Anterior Bilateral Throughout] Blood Pressure 124/56 114/56 O2 Sat by Pulse 100 100 Oximetry O2 Sat by Pulse Oximetry [ Assessment] 09/29/17 09/29/17 09/29/17 08:00 08:01 08:15 Temperature Pulse Rate 91 H 90 Pulse Rate [ Anterior Bilateral Throughout] Respiratory 23 18 Rate Respiratory Rate [Anterior Bilateral Throughout] Blood Pressure 111/56 112/54 O2 Sat by Pulse 100 100 100 Oximetry O2 Sat by Pulse Oximetry [ Assessment] 09/29/17 09/29/17 09/29/17 08:31 08:45 08:55 Temperature Pulse Rate 93 H 92 H 94 H Pulse Rate [ Anterior Bilateral Throughout] Respiratory 23 16 Rate Respiratory Rate [Anterior Bilateral Throughout] Blood Pressure 107/56 105/56 105/56 O2 Sat by Pulse 100 100 100 Oximetry O2 Sat by Pulse Oximetry [ Assessment] 09/29/17 09/29/17 09/29/17 08:58 09:00 09:01 Temperature Pulse Rate 93 H 94 H Pulse Rate [ Anterior Bilateral Throughout] Respiratory 28 H 21 Rate Respiratory Rate [Anterior Bilateral Throughout] Blood Pressure 105/56 123/54 O2 Sat by Pulse 100 100 Oximetry O2 Sat by Pulse 100 Oximetry [ Assessment] 09/29/17 09/29/17 09/29/17 09:03 09:10 09:15 Temperature Pulse Rate 95 H Pulse Rate [ 95 H 94 H Anterior Bilateral Throughout] Respiratory 23 Rate Respiratory 26 H 22 Rate [Anterior Bilateral Throughout] Blood Pressure 105/56 O2 Sat by Pulse 100 Oximetry O2 Sat by Pulse Oximetry [ Assessment] 09/29/17 09/29/17 09/29/17 09:31 09:45 10:01 Temperature Pulse Rate 94 H 95 H 97 H Pulse Rate [ Anterior Bilateral Throughout] Respiratory 22 19 21 Rate Respiratory Rate [Anterior Bilateral Throughout] Blood Pressure 118/51 119/42 108/53 O2 Sat by Pulse 99 100 100 Oximetry O2 Sat by Pulse Oximetry [ Assessment] 09/29/17 09/29/17 09/29/17 10:15 10:31 10:45 Temperature Pulse Rate 99 H 97 H 94 H Pulse Rate [ Anterior Bilateral Throughout] Respiratory 24 30 H 32 H Rate Respiratory Rate [Anterior Bilateral Throughout] Blood Pressure 123/54 113/53 99/51 O2 Sat by Pulse 100 96 97 Oximetry O2 Sat by Pulse Oximetry [ Assessment] 09/29/17 09/29/17 09/29/17 11:00 11:01 11:15 Temperature Pulse Rate 98 H 98 H 102 H Pulse Rate [ Anterior Bilateral Throughout] Respiratory 28 H 28 H 27 H Rate Respiratory Rate [Anterior Bilateral Throughout] Blood Pressure 110/53 110/53 116/52 O2 Sat by Pulse 98 98 100 Oximetry O2 Sat by Pulse Oximetry [ Assessment] 09/29/17 09/29/17 09/29/17 11:31 11:45 12:00 Temperature 98.3 F Pulse Rate 101 H 102 H Pulse Rate [ Anterior Bilateral Throughout] Respiratory 24 23 Rate Respiratory Rate [Anterior Bilateral Throughout] Blood Pressure 110/51 111/49 O2 Sat by Pulse 100 100 Oximetry O2 Sat by Pulse Oximetry [ Assessment] 09/29/17 09/29/17 09/29/17 12:01 12:15 12:31 Temperature Pulse Rate 102 H 98 H 99 H Pulse Rate [ Anterior Bilateral Throughout] Respiratory 24 23 23 Rate Respiratory Rate [Anterior Bilateral Throughout] Blood Pressure 97/43 93/42 110/55 O2 Sat by Pulse 100 100 100 Oximetry O2 Sat by Pulse Oximetry [ Assessment] 09/29/17 09/29/17 09/29/17 12:45 13:00 13:15 Temperature Pulse Rate 102 H 105 H 100 H Pulse Rate [ Anterior Bilateral Throughout] Respiratory 23 22 20 Rate Respiratory Rate [Anterior Bilateral Throughout] Blood Pressure 112/51 109/46 110/49 O2 Sat by Pulse 100 99 100 Oximetry O2 Sat by Pulse Oximetry [ Assessment] 09/29/17 13:30 Temperature Pulse Rate 96 H Pulse Rate [ Anterior Bilateral Throughout] Respiratory 19 Rate Respiratory Rate [Anterior Bilateral Throughout] Blood Pressure 106/49 O2 Sat by Pulse 99 Oximetry O2 Sat by Pulse Oximetry [ Assessment] Constitutional: other (critically ill on vent, obese) Eyes: non-icteric ENT: oropharynx dry Neck: supple, other (trach in position, no bleeding) Effort: normal Ascultation: Bilateral: wheezes (faint expiratory wheezes), other (coarse BS bilaterally) Cardiovascular: regular rate and rhythm (no mrg) Gastrointestinal: absent bowel sounds, non-tender, other (abdominal incision with dressing , obese. Drain in place, no bleeding; ostomy with brown stool) Integumentary: normal Extremities: no cyanosis, pink and warm, edema Neurologic: non-focal exam, pupils equal and round Psychiatric: mood appropriate, affect normal CBC and BMP: 09/29/17 06:00 09/29/17 06:00 ABG, PT/INR, D-dimer: ABG POC ABG pH 7.347 (7.35-7.45) L 09/13/17 11:36 ABG pH 7.323 pH Units (7.350-7.450) L 09/09/17 Unknown POC ABG pCO2 34.3 (35-45) L 09/13/17 11:36 ABG pCO2 41.1 mm Hg 09/09/17 Unknown POC ABG pO2 134 (80-105) H 09/13/17 11:36 ABG pO2 94.1 mm Hg (80.0-90.0) H 09/09/17 Unknown POC ABG HCO3 18.8 09/13/17 11:36 POC ABG Total CO2 20 09/13/17 11:36 POC ABG O2 Sat 99 09/13/17 11:36 ABG O2 Saturation 97.2 % (95.0-99.0) 09/09/17 Unknown PT/INR, D-dimer PT 14.9 Sec. (12.2-14.9) 09/21/17 07:00 INR 1.11 (0.87-1.13) 09/21/17 07:00 Abnormal lab findings: Abnormal Labs 08/08/17 08/08/17 08/09/17 21:23 21:31 11:19 WBC 15.7 H RBC 2.93 L Hgb 8.7 L Hct 26.8 L MCV MCH MCHC RDW 19.2 H Plt Count Lymph % (Auto) [place] % (Auto) [place] # Seg Neutrophils % Seg Neuts % (Manual) Lymphocytes % (Manual) Monocytes % (Manual) Nucleated RBC % Seg Neutrophils # Seg Neutrophils # Man Lymphocytes # (Manual) Monocytes # (Manual) Eosinophils # (Manual) Basophils # (Manual) PT INR POC ABG pH 7.490 H ABG pH POC ABG pCO2 POC ABG pO2 122 H ABG pO2 ABG O2 Saturation ABG Base Excess ABG Hemoglobin Oxyhemoglobin Sodium Potassium Chloride Carbon Dioxide BUN Creatinine Glucose POC Glucose Calcium Phosphorus Magnesium Iron TIBC Ferritin Total Bilirubin AST ALT Alkaline Phosphatase Total Creatine Kinase Troponin T 0.133 H* C-Reactive Protein Total Protein Albumin Triglycerides HDL Cholesterol 26 L Miscellaneous Test Crossmatch 08/09/17 08/10/17 08/10/17 13:25 04:45 04:45 WBC 15.5 H RBC 2.97 L Hgb 8.9 L Hct 27.0 L MCV MCH MCHC RDW 19.2 H Plt Count Lymph % (Auto) [place] % (Auto) [place] # Seg Neutrophils % Seg Neuts % (Manual) 73.0 H Lymphocytes % (Manual) 7.0 L Monocytes % (Manual) 14.0 H Nucleated RBC % Seg Neutrophils # Seg Neutrophils # Man 11.3 H Lymphocytes # (Manual) 1.1 L Monocytes # (Manual) 2.2 H Eosinophils # (Manual) Basophils # (Manual) 0.2 H PT INR POC ABG pH ABG pH POC ABG pCO2 POC ABG pO2 ABG pO2 ABG O2 Saturation ABG Base Excess ABG Hemoglobin Oxyhemoglobin Sodium Potassium 3.3 L Chloride 97.3 L Carbon Dioxide 21 L BUN 23 H Creatinine 6.5 H Glucose POC Glucose Calcium 7.3 L Phosphorus Magnesium Iron TIBC Ferritin Total Bilirubin AST ALT Alkaline Phosphatase 138 H Total Creatine Kinase Troponin T 0.132 H* C-Reactive Protein Total Protein 4.8 L Albumin 1.4 L Triglycerides HDL Cholesterol Miscellaneous Test Crossmatch 08/11/17 08/11/17 08/12/17 04:00 04:00 05:50 WBC 19.3 H RBC 3.10 L Hgb 9.5 L Hct 28.2 L MCV MCH MCHC RDW 19.2 H Plt Count 463 H Lymph % (Auto) 7.5 L [place] % (Auto) 14.6 H [place] # 2.8 H Seg Neutrophils % 77.0 H Seg Neuts % (Manual) Lymphocytes % (Manual) Monocytes % (Manual) Nucleated RBC % Seg Neutrophils # 14.8 H Seg Neutrophils # Man Lymphocytes # (Manual) Monocytes # (Manual) Eosinophils # (Manual) Basophils # (Manual) PT INR POC ABG pH ABG pH POC ABG pCO2 POC ABG pO2 ABG pO2 ABG O2 Saturation ABG Base Excess ABG Hemoglobin Oxyhemoglobin Sodium 136 L 136 L Potassium 3.3 L Chloride 96.3 L 96.6 L Carbon Dioxide BUN 26 H 26 H Creatinine 6.4 H 6.2 H Glucose 135 H 133 H POC Glucose Calcium 8.2 L Phosphorus Magnesium 1.30 L Iron TIBC Ferritin Total Bilirubin AST ALT Alkaline Phosphatase 139 H Total Creatine Kinase Troponin T C-Reactive Protein Total Protein 5.5 L Albumin 1.7 L Triglycerides HDL Cholesterol Miscellaneous Test Crossmatch 08/12/17 08/12/17 08/12/17 05:50 05:50 05:50 WBC 20.1 H RBC 3.06 L Hgb 9.3 L Hct 27.9 L MCV MCH MCHC RDW 18.4 H Plt Count 471 H Lymph % (Auto) [place] % (Auto) [place] # Seg Neutrophils % Seg Neuts % (Manual) 85.0 H Lymphocytes % (Manual) 8.0 L Monocytes % (Manual) Nucleated RBC % Seg Neutrophils # Seg Neutrophils # Man 17.1 H Lymphocytes # (Manual) Monocytes # (Manual) 1.0 H Eosinophils # (Manual) Basophils # (Manual) PT 15.2 H INR 1.14 H POC ABG pH ABG pH POC ABG pCO2 POC ABG pO2 ABG pO2 ABG O2 Saturation ABG Base Excess ABG Hemoglobin Oxyhemoglobin Sodium Potassium Chloride Carbon Dioxide BUN Creatinine Glucose POC Glucose Calcium Phosphorus Magnesium Iron TIBC Ferritin Total Bilirubin AST ALT Alkaline Phosphatase Total Creatine Kinase Troponin T C-Reactive Protein 28.90 H Total Protein Albumin Triglycerides HDL Cholesterol Miscellaneous Test Crossmatch 08/12/17 08/13/17 08/13/17 16:23 06:14 06:14 WBC 21.8 H RBC 3.11 L Hgb 9.4 L Hct 28.2 L MCV MCH MCHC RDW 18.2 H Plt Count 492 H Lymph % (Auto) [place] % (Auto) [place] # Seg Neutrophils % Seg Neuts % (Manual) 73.0 H Lymphocytes % (Manual) 2.0 L Monocytes % (Manual) 15 H Nucleated RBC % Seg Neutrophils # Seg Neutrophils # Man 15.9 H Lymphocytes # (Manual) 0.4 L Monocytes # (Manual) 2.4 H Eosinophils # (Manual) Basophils # (Manual) PT INR POC ABG pH ABG pH POC ABG pCO2 POC ABG pO2 ABG pO2 ABG O2 Saturation ABG Base Excess ABG Hemoglobin Oxyhemoglobin Sodium Potassium Chloride 96.2 L Carbon Dioxide BUN 28 H Creatinine 5.6 H Glucose 114 H POC Glucose Calcium Phosphorus Magnesium Iron TIBC Ferritin Total Bilirubin AST ALT Alkaline Phosphatase Total Creatine Kinase Troponin T C-Reactive Protein 26.10 H Total Protein Albumin Triglycerides HDL Cholesterol Miscellaneous Test Crossmatch 08/13/17 08/14/17 08/14/17 16:39 04:00 04:00 WBC 22.1 H RBC 3.25 L Hgb 9.9 L Hct 29.5 L MCV MCH MCHC RDW 17.9 H Plt Count 525 H Lymph % (Auto) [place] % (Auto) [place] # Seg Neutrophils % Seg Neuts % (Manual) 74.0 H Lymphocytes % (Manual) 8.0 L Monocytes % (Manual) 12.0 H Nucleated RBC % Seg Neutrophils # Seg Neutrophils # Man 16.4 H Lymphocytes # (Manual) Monocytes # (Manual) 2.7 H Eosinophils # (Manual) Basophils # (Manual) PT INR POC ABG pH ABG pH POC ABG pCO2 POC ABG pO2 ABG pO2 ABG O2 Saturation ABG Base Excess ABG Hemoglobin Oxyhemoglobin Sodium 134 L Potassium 3.3 L Chloride 93.3 L Carbon Dioxide BUN 27 H Creatinine 6.0 H Glucose 152 H POC Glucose 151 H Calcium Phosphorus Magnesium Iron TIBC Ferritin Total Bilirubin AST ALT Alkaline Phosphatase Total Creatine Kinase Troponin T C-Reactive Protein Total Protein Albumin Triglycerides HDL Cholesterol Miscellaneous Test Crossmatch 08/15/17 08/16/17 08/16/17 09:10 09:50 09:50 WBC 31.1 H RBC 3.21 L Hgb 9.6 L Hct 29.3 L MCV MCH MCHC RDW 18.1 H Plt Count 642 H Lymph % (Auto) [place] % (Auto) [place] # Seg Neutrophils % Seg Neuts % (Manual) 74.0 H Lymphocytes % (Manual) 4.0 L Monocytes % (Manual) 9.0 H Nucleated RBC % Seg Neutrophils # Seg Neutrophils # Man 23.0 H Lymphocytes # (Manual) Monocytes # (Manual) 2.8 H Eosinophils # (Manual) Basophils # (Manual) PT INR POC ABG pH ABG pH POC ABG pCO2 POC ABG pO2 ABG pO2 ABG O2 Saturation ABG Base Excess ABG Hemoglobin Oxyhemoglobin Sodium 136 L 136 L Potassium 3.5 L Chloride 97.6 L 94.9 L Carbon Dioxide BUN 27 H 28 H Creatinine 5.6 H 5.5 H Glucose 117 H 103 H POC Glucose Calcium Phosphorus Magnesium Iron TIBC Ferritin Total Bilirubin AST ALT Alkaline Phosphatase 137 H Total Creatine Kinase Troponin T C-Reactive Protein Total Protein 5.4 L Albumin 1.5 L Triglycerides HDL Cholesterol Miscellaneous Test Crossmatch 08/16/17 08/17/17 08/17/17 09:50 05:00 06:26 WBC RBC Hgb Hct MCV MCH MCHC RDW Plt Count Lymph % (Auto) [place] % (Auto) [place] # Seg Neutrophils % Seg Neuts % (Manual) Lymphocytes % (Manual) Monocytes % (Manual) Nucleated RBC % Seg Neutrophils # Seg Neutrophils # Man Lymphocytes # (Manual) Monocytes # (Manual) Eosinophils # (Manual) Basophils # (Manual) PT INR POC ABG pH ABG pH POC ABG pCO2 POC ABG pO2 ABG pO2 ABG O2 Saturation ABG Base Excess ABG Hemoglobin Oxyhemoglobin Sodium 134 L Potassium 3.0 L Chloride 97.8 L Carbon Dioxide BUN 30 H Creatinine 5.3 H Glucose 147 H POC Glucose 165 H Calcium 7.5 L Phosphorus Magnesium Iron TIBC Ferritin Total Bilirubin AST ALT Alkaline Phosphatase Total Creatine Kinase Troponin T C-Reactive Protein 32.30 H Total Protein Albumin Triglycerides HDL Cholesterol Miscellaneous Test Crossmatch 08/17/17 08/17/17 08/17/17 10:56 11:20 11:20 WBC 39.1 H RBC 3.10 L Hgb 9.2 L Hct 28.6 L MCV MCH MCHC RDW 18.3 H Plt Count 580 H Lymph % (Auto) [place] % (Auto) [place] # Seg Neutrophils % Seg Neuts % (Manual) 89.5 H Lymphocytes % (Manual) 3.5 L Monocytes % (Manual) Nucleated RBC % Seg Neutrophils # Seg Neutrophils # Man 35.0 H Lymphocytes # (Manual) Monocytes # (Manual) 2.5 H Eosinophils # (Manual) Basophils # (Manual) 0.2 H PT INR POC ABG pH 7.464 H ABG pH POC ABG pCO2 34.1 L POC ABG pO2 75 L ABG pO2 ABG O2 Saturation ABG Base Excess ABG Hemoglobin Oxyhemoglobin Sodium Potassium Chloride Carbon Dioxide BUN Creatinine Glucose POC Glucose Calcium Phosphorus Magnesium Iron TIBC Ferritin Total Bilirubin AST ALT Alkaline Phosphatase Total Creatine Kinase Troponin T C-Reactive Protein Total Protein Albumin Triglycerides HDL Cholesterol Miscellaneous Test Flexitest 1 H Crossmatch 08/17/17 08/17/17 08/17/17 11:20 16:57 20:20 WBC 34.4 H RBC 2.81 L Hgb 8.4 L Hct 26.0 L MCV MCH MCHC RDW 17.8 H Plt Count 455 H Lymph % (Auto) [place] % (Auto) [place] # Seg Neutrophils % Seg Neuts % (Manual) Lymphocytes % (Manual) 3.5 L Monocytes % (Manual) Nucleated RBC % 5.0 H Seg Neutrophils # Seg Neutrophils # Man 16.5 H Lymphocytes # (Manual) Monocytes # (Manual) 1.0 H Eosinophils # (Manual) Basophils # (Manual) PT 16.0 H INR 1.29 H POC ABG pH ABG pH POC ABG pCO2 POC ABG pO2 ABG pO2 ABG O2 Saturation ABG Base Excess ABG Hemoglobin Oxyhemoglobin Sodium 135 L Potassium 2.9 L* Chloride Carbon Dioxide 20 L BUN 32 H Creatinine 5.4 H Glucose 129 H POC Glucose Calcium 7.5 L Phosphorus Magnesium 1.50 L Iron TIBC Ferritin Total Bilirubin AST 85 H ALT Alkaline Phosphatase Total Creatine Kinase Troponin T C-Reactive Protein Total Protein 4.0 L D Albumin 1.6 L Triglycerides HDL Cholesterol Miscellaneous Test Crossmatch 08/17/17 08/17/17 08/18/17 20:54 23:47 04:26 WBC RBC Hgb Hct MCV MCH MCHC RDW Plt Count Lymph % (Auto) [place] % (Auto) [place] # Seg Neutrophils % Seg Neuts % (Manual) Lymphocytes % (Manual) Monocytes % (Manual) Nucleated RBC % Seg Neutrophils # Seg Neutrophils # Man Lymphocytes # (Manual) Monocytes # (Manual) Eosinophils # (Manual) Basophils # (Manual) PT INR POC ABG pH 7.557 H ABG pH POC ABG pCO2 23.1 L 29.0 L POC ABG pO2 187 H 148 H ABG pO2 ABG O2 Saturation ABG Base Excess ABG Hemoglobin Oxyhemoglobin Sodium Potassium Chloride Carbon Dioxide BUN Creatinine Glucose POC Glucose 188 H Calcium Phosphorus Magnesium Iron TIBC Ferritin Total Bilirubin AST ALT Alkaline Phosphatase Total Creatine Kinase Troponin T C-Reactive Protein Total Protein Albumin Triglycerides HDL Cholesterol Miscellaneous Test Crossmatch 08/18/17 08/18/17 08/18/17 05:51 11:44 17:07 WBC RBC Hgb Hct MCV MCH MCHC RDW Plt Count Lymph % (Auto) [place] % (Auto) [place] # Seg Neutrophils % Seg Neuts % (Manual) Lymphocytes % (Manual) Monocytes % (Manual) Nucleated RBC % Seg Neutrophils # Seg Neutrophils # Man Lymphocytes # (Manual) Monocytes # (Manual) Eosinophils # (Manual) Basophils # (Manual) PT INR POC ABG pH ABG pH POC ABG pCO2 POC ABG pO2 ABG pO2 ABG O2 Saturation ABG Base Excess ABG Hemoglobin Oxyhemoglobin Sodium Potassium Chloride Carbon Dioxide BUN Creatinine Glucose POC Glucose 202 H 195 H 182 H Calcium Phosphorus Magnesium Iron TIBC Ferritin Total Bilirubin AST ALT Alkaline Phosphatase Total Creatine Kinase Troponin T C-Reactive Protein Total Protein Albumin Triglycerides HDL Cholesterol Miscellaneous Test Crossmatch 08/18/17 08/18/17 08/18/17 23:45 Unknown Unknown WBC 39.0 H RBC 2.84 L Hgb 8.4 L Hct 26.5 L MCV MCH MCHC RDW 18.0 H Plt Count 476 H Lymph % (Auto) [place] % (Auto) [place] # Seg Neutrophils % Seg Neuts % (Manual) Lymphocytes % (Manual) 7.0 L Monocytes % (Manual) 10.0 H Nucleated RBC % 3.0 H Seg Neutrophils # Seg Neutrophils # Man 15.6 H Lymphocytes # (Manual) Monocytes # (Manual) 3.9 H Eosinophils # (Manual) Basophils # (Manual) PT INR POC ABG pH ABG pH POC ABG pCO2 POC ABG pO2 ABG pO2 ABG O2 Saturation ABG Base Excess ABG Hemoglobin Oxyhemoglobin Sodium Potassium Chloride Carbon Dioxide 19 L BUN 34 H Creatinine 5.6 H Glucose 201 H POC Glucose 163 H Calcium 7.8 L Phosphorus 1.90 L D Magnesium 1.60 L Iron TIBC Ferritin Total Bilirubin AST ALT Alkaline Phosphatase Total Creatine Kinase Troponin T C-Reactive Protein Total Protein Albumin Triglycerides HDL Cholesterol Miscellaneous Test Crossmatch 08/19/17 08/19/17 08/19/17 04:18 05:00 05:00 WBC 40.0 H RBC 2.46 L Hgb 7.3 L Hct 22.6 L MCV MCH MCHC RDW 18.1 H Plt Count Lymph % (Auto) [place] % (Auto) [place] # Seg Neutrophils % Seg Neuts % (Manual) Lymphocytes % (Manual) 8.0 L Monocytes % (Manual) Nucleated RBC % 2.0 H Seg Neutrophils # Seg Neutrophils # Man 16.4 H Lymphocytes # (Manual) Monocytes # (Manual) 1.2 H Eosinophils # (Manual) 1.2 H Basophils # (Manual) PT INR POC ABG pH 7.463 H ABG pH POC ABG pCO2 29.7 L POC ABG pO2 134 H ABG pO2 ABG O2 Saturation ABG Base Excess ABG Hemoglobin Oxyhemoglobin Sodium Potassium 5.1 H D Chloride Carbon Dioxide 20 L BUN 40 H Creatinine 5.3 H Glucose 128 H POC Glucose Calcium 7.8 L Phosphorus 1.90 L Magnesium Iron TIBC Ferritin Total Bilirubin AST ALT Alkaline Phosphatase Total Creatine Kinase Troponin T C-Reactive Protein Total Protein Albumin Triglycerides HDL Cholesterol Miscellaneous Test Crossmatch 08/19/17 08/19/17 08/19/17 05:19 07:37 09:52 WBC 45.0 H* RBC 2.50 L Hgb 7.5 L Hct 24.5 L MCV 98 H MCH MCHC RDW 18.4 H Plt Count Lymph % (Auto) [place] % (Auto) [place] # Seg Neutrophils % Seg Neuts % (Manual) 81.5 H Lymphocytes % (Manual) 4.0 L Monocytes % (Manual) Nucleated RBC % 1.0 H Seg Neutrophils # Seg Neutrophils # Man 36.7 H Lymphocytes # (Manual) Monocytes # (Manual) Eosinophils # (Manual) Basophils # (Manual) PT INR POC ABG pH ABG pH POC ABG pCO2 POC ABG pO2 ABG pO2 ABG O2 Saturation ABG Base Excess ABG Hemoglobin Oxyhemoglobin Sodium Potassium Chloride Carbon Dioxide BUN Creatinine Glucose POC Glucose 142 H Calcium Phosphorus Magnesium Iron TIBC Ferritin Total Bilirubin AST ALT Alkaline Phosphatase Total Creatine Kinase Troponin T C-Reactive Protein 34.20 H Total Protein Albumin Triglycerides HDL Cholesterol Miscellaneous Test Crossmatch 08/19/17 08/19/17 08/20/17 11:16 18:12 00:35 WBC RBC Hgb Hct MCV MCH MCHC RDW Plt Count Lymph % (Auto) [place] % (Auto) [place] # Seg Neutrophils % Seg Neuts % (Manual) Lymphocytes % (Manual) Monocytes % (Manual) Nucleated RBC % Seg Neutrophils # Seg Neutrophils # Man Lymphocytes # (Manual) Monocytes # (Manual) Eosinophils # (Manual) Basophils # (Manual) PT INR POC ABG pH ABG pH POC ABG pCO2 POC ABG pO2 ABG pO2 ABG O2 Saturation ABG Base Excess ABG Hemoglobin Oxyhemoglobin Sodium Potassium Chloride Carbon Dioxide BUN Creatinine Glucose POC Glucose 143 H 137 H 164 H Calcium Phosphorus Magnesium Iron TIBC Ferritin Total Bilirubin AST ALT Alkaline Phosphatase Total Creatine Kinase Troponin T C-Reactive Protein Total Protein Albumin Triglycerides HDL Cholesterol Miscellaneous Test Crossmatch 08/20/17 08/20/17 08/20/17 03:20 03:20 04:00 WBC 48.0 H* RBC 2.55 L Hgb 7.6 L Hct 23.4 L MCV MCH MCHC RDW 18.4 H Plt Count Lymph % (Auto) [place] % (Auto) [place] # Seg Neutrophils % Seg Neuts % (Manual) 90.0 H Lymphocytes % (Manual) 3.0 L Monocytes % (Manual) Nucleated RBC % Seg Neutrophils # Seg Neutrophils # Man 43.2 H Lymphocytes # (Manual) Monocytes # (Manual) 1.4 H Eosinophils # (Manual) 0.5 H Basophils # (Manual) PT INR POC ABG pH 7.499 H ABG pH POC ABG pCO2 29.1 L POC ABG pO2 ABG pO2 ABG O2 Saturation ABG Base Excess ABG Hemoglobin Oxyhemoglobin Sodium 135 L Potassium Chloride Carbon Dioxide BUN 28 H Creatinine 4.0 H Glucose 140 H POC Glucose Calcium 8.0 L Phosphorus 1.70 L Magnesium 1.60 L Iron TIBC Ferritin Total Bilirubin AST ALT Alkaline Phosphatase Total Creatine Kinase Troponin T C-Reactive Protein Total Protein Albumin Triglycerides HDL Cholesterol Miscellaneous Test Crossmatch 08/20/17 08/20/17 08/20/17 05:02 12:05 13:12 WBC RBC Hgb Hct MCV MCH MCHC RDW Plt Count Lymph % (Auto) [place] % (Auto) [place] # Seg Neutrophils % Seg Neuts % (Manual) Lymphocytes % (Manual) Monocytes % (Manual) Nucleated RBC % Seg Neutrophils # Seg Neutrophils # Man Lymphocytes # (Manual) Monocytes # (Manual) Eosinophils # (Manual) Basophils # (Manual) PT INR POC ABG pH 7.537 H ABG pH POC ABG pCO2 27.9 L POC ABG pO2 79 L ABG pO2 ABG O2 Saturation ABG Base Excess ABG Hemoglobin Oxyhemoglobin Sodium Potassium Chloride Carbon Dioxide BUN Creatinine Glucose POC Glucose 158 H 203 H Calcium Phosphorus Magnesium Iron TIBC Ferritin Total Bilirubin AST ALT Alkaline Phosphatase Total Creatine Kinase Troponin T C-Reactive Protein Total Protein Albumin Triglycerides HDL Cholesterol Miscellaneous Test Crossmatch 08/20/17 08/21/17 08/21/17 17:13 00:47 03:14 WBC RBC Hgb Hct MCV MCH MCHC RDW Plt Count Lymph % (Auto) [place] % (Auto) [place] # Seg Neutrophils % Seg Neuts % (Manual) Lymphocytes % (Manual) Monocytes % (Manual) Nucleated RBC % Seg Neutrophils # Seg Neutrophils # Man Lymphocytes # (Manual) Monocytes # (Manual) Eosinophils # (Manual) Basophils # (Manual) PT INR POC ABG pH 7.481 H ABG pH POC ABG pCO2 29.6 L POC ABG pO2 ABG pO2 ABG O2 Saturation ABG Base Excess ABG Hemoglobin Oxyhemoglobin Sodium Potassium Chloride Carbon Dioxide BUN Creatinine Glucose POC Glucose 188 H 109 H Calcium Phosphorus Magnesium Iron TIBC Ferritin Total Bilirubin AST ALT Alkaline Phosphatase Total Creatine Kinase Troponin T C-Reactive Protein Total Protein Albumin Triglycerides HDL Cholesterol Miscellaneous Test Crossmatch 08/21/17 08/21/17 08/21/17 05:05 06:50 06:50 WBC 44.7 H* RBC 2.41 L Hgb 7.1 L Hct 22.1 L MCV MCH MCHC RDW 18.3 H Plt Count Lymph % (Auto) [place] % (Auto) [place] # Seg Neutrophils % Seg Neuts % (Manual) 89.0 H Lymphocytes % (Manual) 0 L Monocytes % (Manual) Nucleated RBC % 1.0 H Seg Neutrophils # Seg Neutrophils # Man 39.8 H Lymphocytes # (Manual) 0.0 L Monocytes # (Manual) 1.3 H Eosinophils # (Manual) Basophils # (Manual) PT INR POC ABG pH ABG pH POC ABG pCO2 POC ABG pO2 ABG pO2 ABG O2 Saturation ABG Base Excess ABG Hemoglobin Oxyhemoglobin Sodium 135 L Potassium Chloride Carbon Dioxide BUN 39 H Creatinine 4.4 H Glucose 147 H POC Glucose 166 H Calcium 8.1 L Phosphorus Magnesium Iron TIBC Ferritin Total Bilirubin AST ALT < 5 L Alkaline Phosphatase 164 H Total Creatine Kinase Troponin T C-Reactive Protein Total Protein 4.7 L Albumin 1.4 L Triglycerides HDL Cholesterol Miscellaneous Test Crossmatch 08/21/17 08/21/17 08/21/17 08:00 12:21 17:02 WBC RBC Hgb Hct MCV MCH MCHC RDW Plt Count Lymph % (Auto) [place] % (Auto) [place] # Seg Neutrophils % Seg Neuts % (Manual) Lymphocytes % (Manual) Monocytes % (Manual) Nucleated RBC % Seg Neutrophils # Seg Neutrophils # Man Lymphocytes # (Manual) Monocytes # (Manual) Eosinophils # (Manual) Basophils # (Manual) PT INR POC ABG pH ABG pH POC ABG pCO2 POC ABG pO2 ABG pO2 ABG O2 Saturation ABG Base Excess ABG Hemoglobin Oxyhemoglobin Sodium Potassium Chloride Carbon Dioxide BUN Creatinine Glucose POC Glucose 147 H 135 H Calcium Phosphorus Magnesium Iron TIBC Ferritin Total Bilirubin AST ALT Alkaline Phosphatase Total Creatine Kinase Troponin T C-Reactive Protein Total Protein Albumin Triglycerides HDL Cholesterol Miscellaneous Test Crossmatch See Detail 08/21/17 08/22/17 08/22/17 23:38 03:40 03:40 WBC 42.5 H* RBC 2.88 L Hgb 8.5 L Hct 26.3 L MCV MCH MCHC RDW 17.9 H Plt Count Lymph % (Auto) [place] % (Auto) [place] # Seg Neutrophils % Seg Neuts % (Manual) Lymphocytes % (Manual) 5.0 L Monocytes % (Manual) Nucleated RBC % Seg Neutrophils # Seg Neutrophils # Man 19.6 H Lymphocytes # (Manual) Monocytes # (Manual) 2.6 H Eosinophils # (Manual) Basophils # (Manual) PT INR POC ABG pH ABG pH POC ABG pCO2 POC ABG pO2 ABG pO2 ABG O2 Saturation ABG Base Excess ABG Hemoglobin Oxyhemoglobin Sodium Potassium 3.3 L D Chloride Carbon Dioxide BUN 27 H Creatinine 2.9 H Glucose 144 H POC Glucose 251 H Calcium 8.0 L Phosphorus 2.40 L Magnesium Iron TIBC Ferritin Total Bilirubin AST ALT Alkaline Phosphatase Total Creatine Kinase Troponin T C-Reactive Protein Total Protein Albumin Triglycerides HDL Cholesterol Miscellaneous Test Crossmatch 08/22/17 08/22/17 08/22/17 06:37 08:50 11:25 WBC RBC Hgb Hct MCV MCH MCHC RDW Plt Count Lymph % (Auto) [place] % (Auto) [place] # Seg Neutrophils % Seg Neuts % (Manual) Lymphocytes % (Manual) Monocytes % (Manual) Nucleated RBC % Seg Neutrophils # Seg Neutrophils # Man Lymphocytes # (Manual) Monocytes # (Manual) Eosinophils # (Manual) Basophils # (Manual) PT INR POC ABG pH ABG pH POC ABG pCO2 POC ABG pO2 ABG pO2 ABG O2 Saturation ABG Base Excess ABG Hemoglobin Oxyhemoglobin Sodium Potassium Chloride Carbon Dioxide BUN Creatinine Glucose POC Glucose 152 H 175 H Calcium Phosphorus Magnesium Iron TIBC Ferritin Total Bilirubin AST ALT Alkaline Phosphatase Total Creatine Kinase Troponin T C-Reactive Protein Total Protein Albumin Triglycerides HDL Cholesterol Miscellaneous Test Flexitest 1 H Crossmatch 08/22/17 08/22/17 08/22/17 16:25 17:56 23:03 WBC RBC Hgb Hct MCV MCH MCHC RDW Plt Count Lymph % (Auto) [place] % (Auto) [place] # Seg Neutrophils % Seg Neuts % (Manual) Lymphocytes % (Manual) Monocytes % (Manual) Nucleated RBC % Seg Neutrophils # Seg Neutrophils # Man Lymphocytes # (Manual) Monocytes # (Manual) Eosinophils # (Manual) Basophils # (Manual) PT INR POC ABG pH ABG pH POC ABG pCO2 POC ABG pO2 ABG pO2 ABG O2 Saturation ABG Base Excess ABG Hemoglobin Oxyhemoglobin Sodium Potassium Chloride Carbon Dioxide BUN Creatinine Glucose POC Glucose 232 H 192 H Calcium Phosphorus Magnesium Iron TIBC Ferritin Total Bilirubin AST ALT Alkaline Phosphatase Total Creatine Kinase Troponin T C-Reactive Protein 30.70 H Total Protein Albumin Triglycerides HDL Cholesterol Miscellaneous Test Crossmatch 08/23/17 08/23/17 08/23/17 05:36 08:50 12:14 WBC RBC Hgb Hct MCV MCH MCHC RDW Plt Count Lymph % (Auto) [place] % (Auto) [place] # Seg Neutrophils % Seg Neuts % (Manual) Lymphocytes % (Manual) Monocytes % (Manual) Nucleated RBC % Seg Neutrophils # Seg Neutrophils # Man Lymphocytes # (Manual) Monocytes # (Manual) Eosinophils # (Manual) Basophils # (Manual) PT INR POC ABG pH ABG pH POC ABG pCO2 POC ABG pO2 ABG pO2 ABG O2 Saturation ABG Base Excess ABG Hemoglobin Oxyhemoglobin Sodium Potassium Chloride 107.1 H Carbon Dioxide BUN 49 H Creatinine 3.3 H Glucose 172 H POC Glucose 206 H 238 H Calcium Phosphorus Magnesium 2.40 H Iron TIBC Ferritin Total Bilirubin AST ALT Alkaline Phosphatase Total Creatine Kinase Troponin T C-Reactive Protein Total Protein Albumin Triglycerides HDL Cholesterol Miscellaneous Test Crossmatch 08/23/17 08/23/17 08/24/17 17:21 23:13 04:00 WBC 34.2 H RBC 2.86 L Hgb 8.4 L Hct 25.9 L MCV MCH MCHC RDW 17.9 H Plt Count Lymph % (Auto) [place] % (Auto) [place] # Seg Neutrophils % Seg Neuts % (Manual) 85.0 H Lymphocytes % (Manual) 0.5 L Monocytes % (Manual) Nucleated RBC % 1.0 H Seg Neutrophils # Seg Neutrophils # Man 29.1 H Lymphocytes # (Manual) 0.2 L Monocytes # (Manual) 2.4 H Eosinophils # (Manual) Basophils # (Manual) PT INR POC ABG pH ABG pH POC ABG pCO2 POC ABG pO2 ABG pO2 ABG O2 Saturation ABG Base Excess ABG Hemoglobin Oxyhemoglobin Sodium Potassium Chloride Carbon Dioxide BUN Creatinine Glucose POC Glucose 226 H 183 H Calcium Phosphorus Magnesium Iron TIBC Ferritin Total Bilirubin AST ALT Alkaline Phosphatase Total Creatine Kinase Troponin T C-Reactive Protein Total Protein Albumin Triglycerides HDL Cholesterol Miscellaneous Test Crossmatch 08/24/17 08/24/17 08/24/17 05:06 09:30 12:04 WBC RBC Hgb Hct MCV MCH MCHC RDW Plt Count Lymph % (Auto) [place] % (Auto) [place] # Seg Neutrophils % Seg Neuts % (Manual) Lymphocytes % (Manual) Monocytes % (Manual) Nucleated RBC % Seg Neutrophils # Seg Neutrophils # Man Lymphocytes # (Manual) Monocytes # (Manual) Eosinophils # (Manual) Basophils # (Manual) PT INR POC ABG pH ABG pH POC ABG pCO2 POC ABG pO2 ABG pO2 ABG O2 Saturation ABG Base Excess ABG Hemoglobin Oxyhemoglobin Sodium Potassium Chloride Carbon Dioxide BUN 46 H Creatinine 2.5 H Glucose 176 H POC Glucose 201 H 181 H Calcium Phosphorus Magnesium Iron TIBC Ferritin Total Bilirubin AST ALT Alkaline Phosphatase Total Creatine Kinase Troponin T C-Reactive Protein Total Protein Albumin Triglycerides HDL Cholesterol Miscellaneous Test Crossmatch 08/24/17 08/24/17 08/25/17 18:04 23:05 05:05 WBC RBC Hgb Hct MCV MCH MCHC RDW Plt Count Lymph % (Auto) [place] % (Auto) [place] # Seg Neutrophils % Seg Neuts % (Manual) Lymphocytes % (Manual) Monocytes % (Manual) Nucleated RBC % Seg Neutrophils # Seg Neutrophils # Man Lymphocytes # (Manual) Monocytes # (Manual) Eosinophils # (Manual) Basophils # (Manual) PT INR POC ABG pH ABG pH POC ABG pCO2 POC ABG pO2 ABG pO2 ABG O2 Saturation ABG Base Excess ABG Hemoglobin Oxyhemoglobin Sodium Potassium Chloride Carbon Dioxide BUN Creatinine Glucose POC Glucose 189 H 175 H 190 H Calcium Phosphorus Magnesium Iron TIBC Ferritin Total Bilirubin AST ALT Alkaline Phosphatase Total Creatine Kinase Troponin T C-Reactive Protein Total Protein Albumin Triglycerides HDL Cholesterol Miscellaneous Test Crossmatch 08/25/17 08/25/17 08/26/17 07:02 11:53 05:30 WBC 33.5 H RBC 2.47 L Hgb 7.3 L Hct 23.0 L MCV MCH MCHC RDW 21.3 H Plt Count Lymph % (Auto) [place] % (Auto) [place] # Seg Neutrophils % Seg Neuts % (Manual) 92.0 H Lymphocytes % (Manual) 1.0 L Monocytes % (Manual) Nucleated RBC % Seg Neutrophils # Seg Neutrophils # Man 30.8 H Lymphocytes # (Manual) 0.3 L Monocytes # (Manual) Eosinophils # (Manual) Basophils # (Manual) PT INR POC ABG pH ABG pH POC ABG pCO2 POC ABG pO2 ABG pO2 ABG O2 Saturation ABG Base Excess ABG Hemoglobin Oxyhemoglobin Sodium Potassium Chloride Carbon Dioxide BUN 32 H Creatinine 5.0 H D Glucose 117 H POC Glucose 191 H Calcium 8.0 L Phosphorus Magnesium Iron TIBC Ferritin Total Bilirubin AST ALT Alkaline Phosphatase Total Creatine Kinase Troponin T C-Reactive Protein Total Protein Albumin Triglycerides HDL Cholesterol Miscellaneous Test Crossmatch 08/26/17 08/26/17 08/26/17 05:30 06:44 13:26 WBC RBC Hgb Hct MCV MCH MCHC RDW Plt Count Lymph % (Auto) [place] % (Auto) [place] # Seg Neutrophils % Seg Neuts % (Manual) Lymphocytes % (Manual) Monocytes % (Manual) Nucleated RBC % Seg Neutrophils # Seg Neutrophils # Man Lymphocytes # (Manual) Monocytes # (Manual) Eosinophils # (Manual) Basophils # (Manual) PT INR POC ABG pH ABG pH POC ABG pCO2 POC ABG pO2 ABG pO2 ABG O2 Saturation ABG Base Excess ABG Hemoglobin Oxyhemoglobin Sodium Potassium 5.2 H Chloride Carbon Dioxide BUN 80 H Creatinine 3.4 H Glucose 193 H POC Glucose 232 H 207 H Calcium 8.3 L Phosphorus 6.80 H D Magnesium 2.60 H Iron TIBC Ferritin Total Bilirubin AST 135 H ALT Alkaline Phosphatase 211 H Total Creatine Kinase Troponin T C-Reactive Protein Total Protein 4.8 L Albumin 2.0 L Triglycerides HDL Cholesterol Miscellaneous Test Crossmatch 08/27/17 08/27/17 08/27/17 01:08 06:20 06:20 WBC 35.0 H RBC 2.75 L Hgb 8.4 L Hct 25.1 L MCV MCH MCHC RDW 21.8 H Plt Count Lymph % (Auto) [place] % (Auto) [place] # Seg Neutrophils % Seg Neuts % (Manual) Lymphocytes % (Manual) 4.5 L Monocytes % (Manual) Nucleated RBC % Seg Neutrophils # Seg Neutrophils # Man 31.9 H Lymphocytes # (Manual) Monocytes # (Manual) 1.2 H Eosinophils # (Manual) Basophils # (Manual) PT INR POC ABG pH ABG pH POC ABG pCO2 POC ABG pO2 ABG pO2 ABG O2 Saturation ABG Base Excess ABG Hemoglobin Oxyhemoglobin Sodium Potassium Chloride Carbon Dioxide BUN 61 H Creatinine 2.6 H Glucose 184 H POC Glucose 146 H Calcium Phosphorus 4.90 H D Magnesium Iron TIBC Ferritin Total Bilirubin AST ALT Alkaline Phosphatase Total Creatine Kinase Troponin T C-Reactive Protein Total Protein Albumin Triglycerides HDL Cholesterol Miscellaneous Test Crossmatch 08/27/17 08/27/17 08/27/17 07:01 09:17 12:52 WBC RBC Hgb Hct MCV MCH MCHC RDW Plt Count Lymph % (Auto) [place] % (Auto) [place] # Seg Neutrophils % Seg Neuts % (Manual) Lymphocytes % (Manual) Monocytes % (Manual) Nucleated RBC % Seg Neutrophils # Seg Neutrophils # Man Lymphocytes # (Manual) Monocytes # (Manual) Eosinophils # (Manual) Basophils # (Manual) PT INR POC ABG pH ABG pH POC ABG pCO2 POC ABG pO2 ABG pO2 ABG O2 Saturation ABG Base Excess ABG Hemoglobin Oxyhemoglobin Sodium Potassium Chloride Carbon Dioxide BUN Creatinine Glucose POC Glucose 165 H 198 H 218 H Calcium Phosphorus Magnesium Iron TIBC Ferritin Total Bilirubin AST ALT Alkaline Phosphatase Total Creatine Kinase Troponin T C-Reactive Protein Total Protein Albumin Triglycerides HDL Cholesterol Miscellaneous Test Crossmatch 08/27/17 08/28/17 08/28/17 17:27 02:13 06:46 WBC RBC Hgb Hct MCV MCH MCHC RDW Plt Count Lymph % (Auto) [place] % (Auto) [place] # Seg Neutrophils % Seg Neuts % (Manual) Lymphocytes % (Manual) Monocytes % (Manual) Nucleated RBC % Seg Neutrophils # Seg Neutrophils # Man Lymphocytes # (Manual) Monocytes # (Manual) Eosinophils # (Manual) Basophils # (Manual) PT INR POC ABG pH ABG pH POC ABG pCO2 POC ABG pO2 ABG pO2 ABG O2 Saturation ABG Base Excess ABG Hemoglobin Oxyhemoglobin Sodium Potassium Chloride Carbon Dioxide BUN Creatinine Glucose POC Glucose 151 H 155 H 230 H Calcium Phosphorus Magnesium Iron TIBC Ferritin Total Bilirubin AST ALT Alkaline Phosphatase Total Creatine Kinase Troponin T C-Reactive Protein Total Protein Albumin Triglycerides HDL Cholesterol Miscellaneous Test Crossmatch 08/28/17 08/28/17 08/28/17 06:53 06:53 08:19 WBC 31.1 H RBC 2.26 L Hgb 6.8 L Hct 20.9 L MCV MCH MCHC RDW 21.7 H Plt Count Lymph % (Auto) [place] % (Auto) [place] # Seg Neutrophils % Seg Neuts % (Manual) 83.0 H Lymphocytes % (Manual) 4.0 L Monocytes % (Manual) Nucleated RBC % Seg Neutrophils # Seg Neutrophils # Man 25.8 H Lymphocytes # (Manual) Monocytes # (Manual) Eosinophils # (Manual) Basophils # (Manual) PT INR POC ABG pH ABG pH POC ABG pCO2 POC ABG pO2 ABG pO2 ABG O2 Saturation ABG Base Excess ABG Hemoglobin Oxyhemoglobin Sodium Potassium Chloride Carbon Dioxide BUN 81 H Creatinine 3.4 H Glucose 218 H POC Glucose 239 H Calcium Phosphorus 4.90 H Magnesium Iron TIBC Ferritin Total Bilirubin AST ALT Alkaline Phosphatase Total Creatine Kinase Troponin T C-Reactive Protein Total Protein Albumin Triglycerides HDL Cholesterol Miscellaneous Test Crossmatch 08/28/17 08/28/17 08/28/17 11:56 13:05 13:29 WBC RBC Hgb Hct MCV MCH MCHC RDW Plt Count Lymph % (Auto) [place] % (Auto) [place] # Seg Neutrophils % Seg Neuts % (Manual) Lymphocytes % (Manual) Monocytes % (Manual) Nucleated RBC % Seg Neutrophils # Seg Neutrophils # Man Lymphocytes # (Manual) Monocytes # (Manual) Eosinophils # (Manual) Basophils # (Manual) PT 16.7 H INR 1.29 H POC ABG pH ABG pH POC ABG pCO2 POC ABG pO2 338 H ABG pO2 ABG O2 Saturation ABG Base Excess ABG Hemoglobin Oxyhemoglobin Sodium Potassium Chloride Carbon Dioxide BUN Creatinine Glucose POC Glucose Calcium Phosphorus Magnesium Iron TIBC Ferritin Total Bilirubin AST ALT Alkaline Phosphatase Total Creatine Kinase Troponin T C-Reactive Protein Total Protein Albumin Triglycerides HDL Cholesterol Miscellaneous Test Crossmatch See Detail 08/28/17 08/28/17 08/29/17 16:22 19:20 04:24 WBC RBC Hgb Hct MCV MCH MCHC RDW Plt Count Lymph % (Auto) [place] % (Auto) [place] # Seg Neutrophils % Seg Neuts % (Manual) Lymphocytes % (Manual) Monocytes % (Manual) Nucleated RBC % Seg Neutrophils # Seg Neutrophils # Man Lymphocytes # (Manual) Monocytes # (Manual) Eosinophils # (Manual) Basophils # (Manual) PT INR POC ABG pH 7.469 H ABG pH POC ABG pCO2 POC ABG pO2 240 H ABG pO2 ABG O2 Saturation ABG Base Excess ABG Hemoglobin Oxyhemoglobin Sodium Potassium Chloride Carbon Dioxide BUN Creatinine Glucose POC Glucose 209 H 195 H Calcium Phosphorus Magnesium Iron TIBC Ferritin Total Bilirubin AST ALT Alkaline Phosphatase Total Creatine Kinase Troponin T C-Reactive Protein Total Protein Albumin Triglycerides HDL Cholesterol Miscellaneous Test Crossmatch 08/29/17 08/29/17 08/29/17 04:30 04:30 12:07 WBC 44.9 H* RBC Hgb Hct MCV MCH MCHC RDW 23.1 H Plt Count Lymph % (Auto) [place] % (Auto) [place] # Seg Neutrophils % Seg Neuts % (Manual) 38.0 L Lymphocytes % (Manual) 10.0 L Monocytes % (Manual) 10.0 H Nucleated RBC % 6.0 H Seg Neutrophils # Seg Neutrophils # Man 17.1 H Lymphocytes # (Manual) Monocytes # (Manual) 4.5 H Eosinophils # (Manual) Basophils # (Manual) PT INR POC ABG pH ABG pH POC ABG pCO2 POC ABG pO2 ABG pO2 ABG O2 Saturation ABG Base Excess ABG Hemoglobin Oxyhemoglobin Sodium Potassium Chloride Carbon Dioxide BUN 61 H Creatinine 2.4 H Glucose 226 H POC Glucose 200 H Calcium Phosphorus Magnesium Iron TIBC Ferritin Total Bilirubin AST ALT Alkaline Phosphatase Total Creatine Kinase Troponin T C-Reactive Protein Total Protein Albumin Triglycerides HDL Cholesterol Miscellaneous Test Crossmatch 08/29/17 08/29/17 08/29/17 12:30 12:30 17:23 WBC RBC Hgb Hct MCV MCH MCHC RDW Plt Count Lymph % (Auto) [place] % (Auto) [place] # Seg Neutrophils % Seg Neuts % (Manual) Lymphocytes % (Manual) Monocytes % (Manual) Nucleated RBC % Seg Neutrophils # Seg Neutrophils # Man Lymphocytes # (Manual) Monocytes # (Manual) Eosinophils # (Manual) Basophils # (Manual) PT INR POC ABG pH ABG pH POC ABG pCO2 POC ABG pO2 ABG pO2 ABG O2 Saturation ABG Base Excess ABG Hemoglobin Oxyhemoglobin Sodium Potassium Chloride Carbon Dioxide BUN Creatinine Glucose POC Glucose 270 H Calcium Phosphorus Magnesium Iron TIBC Ferritin Total Bilirubin AST ALT Alkaline Phosphatase Total Creatine Kinase Troponin T C-Reactive Protein 19.10 H Total Protein Albumin Triglycerides HDL Cholesterol Miscellaneous Test Flexitest 1 H Crossmatch 08/30/17 08/30/17 08/30/17 00:10 01:30 03:31 WBC RBC Hgb Hct MCV MCH MCHC RDW Plt Count Lymph % (Auto) [place] % (Auto) [place] # Seg Neutrophils % Seg Neuts % (Manual) Lymphocytes % (Manual) Monocytes % (Manual) Nucleated RBC % Seg Neutrophils # Seg Neutrophils # Man Lymphocytes # (Manual) Monocytes # (Manual) Eosinophils # (Manual) Basophils # (Manual) PT INR POC ABG pH 7.168 L 7.335 L ABG pH POC ABG pCO2 72.8 H POC ABG pO2 257 H 117 H ABG pO2 ABG O2 Saturation ABG Base Excess ABG Hemoglobin Oxyhemoglobin Sodium Potassium Chloride Carbon Dioxide BUN Creatinine Glucose POC Glucose 245 H Calcium Phosphorus Magnesium Iron TIBC Ferritin Total Bilirubin AST ALT Alkaline Phosphatase Total Creatine Kinase Troponin T C-Reactive Protein Total Protein Albumin Triglycerides HDL Cholesterol Miscellaneous Test Crossmatch 08/30/17 08/30/17 08/30/17 05:20 05:20 05:20 WBC 40.9 H* RBC 3.64 L Hgb Hct MCV MCH MCHC RDW 24.3 H Plt Count Lymph % (Auto) [place] % (Auto) [place] # Seg Neutrophils % Seg Neuts % (Manual) 80.0 H Lymphocytes % (Manual) 3.0 L Monocytes % (Manual) Nucleated RBC % 1.0 H Seg Neutrophils # Seg Neutrophils # Man 32.7 H Lymphocytes # (Manual) Monocytes # (Manual) Eosinophils # (Manual) Basophils # (Manual) PT INR POC ABG pH ABG pH POC ABG pCO2 POC ABG pO2 ABG pO2 ABG O2 Saturation ABG Base Excess ABG Hemoglobin Oxyhemoglobin Sodium Potassium Chloride Carbon Dioxide BUN 83 H Creatinine 2.9 H Glucose 334 H POC Glucose 309 H Calcium Phosphorus Magnesium Iron TIBC Ferritin Total Bilirubin AST ALT Alkaline Phosphatase Total Creatine Kinase Troponin T C-Reactive Protein Total Protein Albumin Triglycerides HDL Cholesterol Miscellaneous Test Crossmatch 08/30/17 08/30/17 08/31/17 12:18 17:36 00:17 WBC RBC Hgb Hct MCV MCH MCHC RDW Plt Count Lymph % (Auto) [place] % (Auto) [place] # Seg Neutrophils % Seg Neuts % (Manual) Lymphocytes % (Manual) Monocytes % (Manual) Nucleated RBC % Seg Neutrophils # Seg Neutrophils # Man Lymphocytes # (Manual) Monocytes # (Manual) Eosinophils # (Manual) Basophils # (Manual) PT INR POC ABG pH ABG pH POC ABG pCO2 POC ABG pO2 ABG pO2 ABG O2 Saturation ABG Base Excess ABG Hemoglobin Oxyhemoglobin Sodium Potassium Chloride Carbon Dioxide BUN Creatinine Glucose POC Glucose 273 H 293 H 360 H Calcium Phosphorus Magnesium Iron TIBC Ferritin Total Bilirubin AST ALT Alkaline Phosphatase Total Creatine Kinase Troponin T C-Reactive Protein Total Protein Albumin Triglycerides HDL Cholesterol Miscellaneous Test Crossmatch 08/31/17 08/31/17 08/31/17 05:30 05:30 05:32 WBC 29.9 H RBC 2.89 L Hgb 8.2 L Hct 24.7 L D MCV MCH MCHC RDW 24.4 H Plt Count Lymph % (Auto) [place] % (Auto) [place] # Seg Neutrophils % Seg Neuts % (Manual) Lymphocytes % (Manual) 2.0 L Monocytes % (Manual) Nucleated RBC % 2.0 H Seg Neutrophils # Seg Neutrophils # Man 18.5 H Lymphocytes # (Manual) 0.6 L Monocytes # (Manual) 0.9 H Eosinophils # (Manual) Basophils # (Manual) PT INR POC ABG pH ABG pH POC ABG pCO2 POC ABG pO2 ABG pO2 ABG O2 Saturation ABG Base Excess ABG Hemoglobin Oxyhemoglobin Sodium Potassium Chloride Carbon Dioxide BUN 62 H Creatinine 2.2 H Glucose 245 H POC Glucose 257 H Calcium Phosphorus 2.10 L D Magnesium 1.60 L Iron TIBC Ferritin Total Bilirubin AST ALT Alkaline Phosphatase Total Creatine Kinase Troponin T C-Reactive Protein Total Protein Albumin Triglycerides HDL Cholesterol Miscellaneous Test Crossmatch 08/31/17 08/31/17 08/31/17 11:56 12:05 18:14 WBC 32.5 H RBC 3.19 L Hgb 8.8 L Hct 27.9 L MCV MCH MCHC RDW 24.9 H Plt Count Lymph % (Auto) [place] % (Auto) [place] # Seg Neutrophils % Seg Neuts % (Manual) Lymphocytes % (Manual) 1.0 L Monocytes % (Manual) 12.0 H Nucleated RBC % 1.0 H Seg Neutrophils # Seg Neutrophils # Man 13.3 H Lymphocytes # (Manual) 0.3 L Monocytes # (Manual) 3.9 H Eosinophils # (Manual) Basophils # (Manual) PT INR POC ABG pH ABG pH POC ABG pCO2 POC ABG pO2 ABG pO2 ABG O2 Saturation ABG Base Excess ABG Hemoglobin Oxyhemoglobin Sodium Potassium Chloride Carbon Dioxide BUN Creatinine Glucose POC Glucose 245 H Calcium Phosphorus Magnesium Iron TIBC Ferritin Total Bilirubin AST ALT Alkaline Phosphatase Total Creatine Kinase Troponin T C-Reactive Protein Total Protein Albumin Triglycerides HDL Cholesterol Miscellaneous Test Crossmatch See Detail 08/31/17 08/31/17 08/31/17 18:14 18:15 18:22 WBC RBC Hgb Hct MCV MCH MCHC RDW Plt Count Lymph % (Auto) [place] % (Auto) [place] # Seg Neutrophils % Seg Neuts % (Manual) Lymphocytes % (Manual) Monocytes % (Manual) Nucleated RBC % Seg Neutrophils # Seg Neutrophils # Man Lymphocytes # (Manual) Monocytes # (Manual) Eosinophils # (Manual) Basophils # (Manual) PT 15.1 H INR POC ABG pH ABG pH POC ABG pCO2 POC ABG pO2 ABG pO2 ABG O2 Saturation ABG Base Excess ABG Hemoglobin Oxyhemoglobin Sodium 136 L Potassium Chloride Carbon Dioxide 21 L BUN 69 H Creatinine 2.3 H Glucose 227 H POC Glucose 240 H Calcium Phosphorus 2.40 L Magnesium 1.50 L Iron TIBC Ferritin Total Bilirubin AST 143 H ALT 114 H Alkaline Phosphatase 267 H Total Creatine Kinase Troponin T C-Reactive Protein Total Protein 4.1 L Albumin 1.8 L Triglycerides HDL Cholesterol Miscellaneous Test Crossmatch 08/31/17 09/01/17 09/01/17 23:53 05:00 05:00 WBC 33.9 H RBC 2.85 L Hgb 7.8 L Hct 24.8 L MCV MCH 27 L MCHC RDW 23.9 H Plt Count Lymph % (Auto) [place] % (Auto) [place] # Seg Neutrophils % Seg Neuts % (Manual) Lymphocytes % (Manual) 5.0 L Monocytes % (Manual) Nucleated RBC % Seg Neutrophils # Seg Neutrophils # Man 23.1 H Lymphocytes # (Manual) Monocytes # (Manual) Eosinophils # (Manual) Basophils # (Manual) PT INR POC ABG pH ABG pH POC ABG pCO2 POC ABG pO2 ABG pO2 ABG O2 Saturation ABG Base Excess ABG Hemoglobin Oxyhemoglobin Sodium Potassium Chloride Carbon Dioxide BUN 51 H Creatinine 1.8 H Glucose 195 H POC Glucose 301 H Calcium Phosphorus 1.70 L D Magnesium 1.60 L Iron TIBC Ferritin Total Bilirubin AST 80 H ALT 82 H Alkaline Phosphatase 243 H Total Creatine Kinase Troponin T C-Reactive Protein Total Protein 4.2 L Albumin 1.7 L Triglycerides HDL Cholesterol Miscellaneous Test Crossmatch 09/01/17 09/01/17 09/01/17 05:20 05:47 11:37 WBC RBC Hgb Hct MCV MCH MCHC RDW Plt Count Lymph % (Auto) [place] % (Auto) [place] # Seg Neutrophils % Seg Neuts % (Manual) Lymphocytes % (Manual) Monocytes % (Manual) Nucleated RBC % Seg Neutrophils # Seg Neutrophils # Man Lymphocytes # (Manual) Monocytes # (Manual) Eosinophils # (Manual) Basophils # (Manual) PT INR POC ABG pH ABG pH 7.348 L POC ABG pCO2 POC ABG pO2 ABG pO2 70.2 L ABG O2 Saturation ABG Base Excess ABG Hemoglobin 7.5 L Oxyhemoglobin Sodium Potassium Chloride Carbon Dioxide BUN Creatinine Glucose POC Glucose 230 H 254 H Calcium Phosphorus Magnesium Iron TIBC Ferritin Total Bilirubin AST ALT Alkaline Phosphatase Total Creatine Kinase Troponin T C-Reactive Protein Total Protein Albumin Triglycerides HDL Cholesterol Miscellaneous Test Crossmatch 09/01/17 09/01/17 09/02/17 17:39 23:14 04:55 WBC RBC Hgb Hct MCV MCH MCHC RDW Plt Count Lymph % (Auto) [place] % (Auto) [place] # Seg Neutrophils % Seg Neuts % (Manual) Lymphocytes % (Manual) Monocytes % (Manual) Nucleated RBC % Seg Neutrophils # Seg Neutrophils # Man Lymphocytes # (Manual) Monocytes # (Manual) Eosinophils # (Manual) Basophils # (Manual) PT INR POC ABG pH ABG pH POC ABG pCO2 POC ABG pO2 ABG pO2 124.8 H ABG O2 Saturation ABG Base Excess -2.9 L ABG Hemoglobin 5.8 L Oxyhemoglobin Sodium Potassium Chloride Carbon Dioxide BUN Creatinine Glucose POC Glucose 297 H 291 H Calcium Phosphorus Magnesium Iron TIBC Ferritin Total Bilirubin AST ALT Alkaline Phosphatase Total Creatine Kinase Troponin T C-Reactive Protein Total Protein Albumin Triglycerides HDL Cholesterol Miscellaneous Test Crossmatch 09/02/17 09/02/17 09/02/17 05:31 06:10 11:58 WBC RBC Hgb Hct MCV MCH MCHC RDW Plt Count Lymph % (Auto) [place] % (Auto) [place] # Seg Neutrophils % Seg Neuts % (Manual) Lymphocytes % (Manual) Monocytes % (Manual) Nucleated RBC % Seg Neutrophils # Seg Neutrophils # Man Lymphocytes # (Manual) Monocytes # (Manual) Eosinophils # (Manual) Basophils # (Manual) PT INR POC ABG pH ABG pH POC ABG pCO2 POC ABG pO2 ABG pO2 ABG O2 Saturation ABG Base Excess ABG Hemoglobin Oxyhemoglobin Sodium Potassium Chloride Carbon Dioxide BUN 68 H Creatinine 2.2 H Glucose 369 H POC Glucose 245 H 333 H Calcium 8.2 L Phosphorus Magnesium Iron TIBC Ferritin Total Bilirubin AST ALT Alkaline Phosphatase Total Creatine Kinase Troponin T C-Reactive Protein Total Protein Albumin Triglycerides HDL Cholesterol Miscellaneous Test Crossmatch 09/02/17 09/02/17 09/03/17 15:37 23:50 04:00 WBC RBC Hgb Hct MCV MCH MCHC RDW Plt Count Lymph % (Auto) [place] % (Auto) [place] # Seg Neutrophils % Seg Neuts % (Manual) Lymphocytes % (Manual) Monocytes % (Manual) Nucleated RBC % Seg Neutrophils # Seg Neutrophils # Man Lymphocytes # (Manual) Monocytes # (Manual) Eosinophils # (Manual) Basophils # (Manual) PT INR POC ABG pH ABG pH POC ABG pCO2 POC ABG pO2 ABG pO2 ABG O2 Saturation ABG Base Excess ABG Hemoglobin Oxyhemoglobin Sodium Potassium Chloride Carbon Dioxide BUN 59 H Creatinine 1.9 H Glucose 231 H POC Glucose 314 H 240 H Calcium 8.0 L Phosphorus Magnesium Iron TIBC Ferritin Total Bilirubin AST ALT Alkaline Phosphatase 265 H Total Creatine Kinase Troponin T C-Reactive Protein Total Protein 4.4 L Albumin 1.7 L Triglycerides 180 H HDL Cholesterol Miscellaneous Test Crossmatch 09/03/17 09/03/17 09/03/17 05:00 05:32 11:52 WBC 41.5 H* RBC 2.46 L Hgb 6.9 L Hct 21.3 L MCV MCH MCHC RDW 24.9 H Plt Count Lymph % (Auto) [place] % (Auto) [place] # Seg Neutrophils % Seg Neuts % (Manual) Lymphocytes % (Manual) 3.0 L Monocytes % (Manual) 9.5 H Nucleated RBC % 1.5 H Seg Neutrophils # Seg Neutrophils # Man 28.8 H Lymphocytes # (Manual) Monocytes # (Manual) 3.9 H Eosinophils # (Manual) Basophils # (Manual) PT INR POC ABG pH ABG pH POC ABG pCO2 POC ABG pO2 ABG pO2 ABG O2 Saturation ABG Base Excess ABG Hemoglobin Oxyhemoglobin Sodium Potassium Chloride Carbon Dioxide BUN Creatinine Glucose POC Glucose 188 H 285 H Calcium Phosphorus Magnesium Iron TIBC Ferritin Total Bilirubin AST ALT Alkaline Phosphatase Total Creatine Kinase Troponin T C-Reactive Protein Total Protein Albumin Triglycerides HDL Cholesterol Miscellaneous Test Crossmatch 09/03/17 09/03/17 09/03/17 16:55 17:44 23:56 WBC RBC Hgb Hct MCV MCH MCHC RDW Plt Count Lymph % (Auto) [place] % (Auto) [place] # Seg Neutrophils % Seg Neuts % (Manual) Lymphocytes % (Manual) Monocytes % (Manual) Nucleated RBC % Seg Neutrophils # Seg Neutrophils # Man Lymphocytes # (Manual) Monocytes # (Manual) Eosinophils # (Manual) Basophils # (Manual) PT INR POC ABG pH ABG pH POC ABG pCO2 POC ABG pO2 ABG pO2 ABG O2 Saturation ABG Base Excess ABG Hemoglobin Oxyhemoglobin Sodium Potassium Chloride Carbon Dioxide BUN Creatinine Glucose POC Glucose 217 H 193 H Calcium Phosphorus Magnesium Iron TIBC Ferritin Total Bilirubin AST ALT Alkaline Phosphatase Total Creatine Kinase Troponin T C-Reactive Protein Total Protein Albumin Triglycerides HDL Cholesterol Miscellaneous Test Crossmatch See Detail 09/03/17 09/04/17 09/04/17 Unknown 03:47 04:32 WBC 44.7 H* RBC 3.12 L Hgb 8.7 L Hct 26.7 L MCV MCH MCHC RDW 23.5 H Plt Count Lymph % (Auto) [place] % (Auto) [place] # Seg Neutrophils % Seg Neuts % (Manual) Lymphocytes % (Manual) 4.0 L Monocytes % (Manual) Nucleated RBC % 2.0 H Seg Neutrophils # Seg Neutrophils # Man 30.8 H Lymphocytes # (Manual) Monocytes # (Manual) 2.2 H Eosinophils # (Manual) Basophils # (Manual) PT INR POC ABG pH ABG pH POC ABG pCO2 POC ABG pO2 ABG pO2 133.4 H 135.0 H ABG O2 Saturation ABG Base Excess -2.5 L ABG Hemoglobin 5.8 L 7.9 L Oxyhemoglobin Sodium Potassium Chloride Carbon Dioxide BUN Creatinine Glucose POC Glucose Calcium Phosphorus Magnesium Iron TIBC Ferritin Total Bilirubin AST ALT Alkaline Phosphatase Total Creatine Kinase Troponin T C-Reactive Protein Total Protein Albumin Triglycerides HDL Cholesterol Miscellaneous Test Crossmatch 09/04/17 09/04/17 09/04/17 04:32 05:48 10:43 WBC RBC Hgb Hct MCV MCH MCHC RDW Plt Count Lymph % (Auto) [place] % (Auto) [place] # Seg Neutrophils % Seg Neuts % (Manual) Lymphocytes % (Manual) Monocytes % (Manual) Nucleated RBC % Seg Neutrophils # Seg Neutrophils # Man Lymphocytes # (Manual) Monocytes # (Manual) Eosinophils # (Manual) Basophils # (Manual) PT INR POC ABG pH ABG pH POC ABG pCO2 POC ABG pO2 ABG pO2 ABG O2 Saturation ABG Base Excess ABG Hemoglobin Oxyhemoglobin Sodium 136 L Potassium 5.2 H D Chloride 94.2 L Carbon Dioxide BUN 71 H Creatinine 2.3 H Glucose 235 H POC Glucose 329 H Calcium 8.3 L Phosphorus Magnesium Iron TIBC Ferritin Total Bilirubin AST ALT Alkaline Phosphatase Total Creatine Kinase Troponin T C-Reactive Protein Total Protein Albumin Triglycerides HDL Cholesterol Miscellaneous Test Flexitest 1 H Crossmatch 09/04/17 09/04/17 09/05/17 12:38 17:30 00:15 WBC RBC Hgb Hct MCV MCH MCHC RDW Plt Count Lymph % (Auto) [place] % (Auto) [place] # Seg Neutrophils % Seg Neuts % (Manual) Lymphocytes % (Manual) Monocytes % (Manual) Nucleated RBC % Seg Neutrophils # Seg Neutrophils # Man Lymphocytes # (Manual) Monocytes # (Manual) Eosinophils # (Manual) Basophils # (Manual) PT INR POC ABG pH ABG pH POC ABG pCO2 POC ABG pO2 ABG pO2 ABG O2 Saturation ABG Base Excess ABG Hemoglobin Oxyhemoglobin Sodium Potassium Chloride Carbon Dioxide BUN Creatinine Glucose POC Glucose 444 H 331 H 362 H Calcium Phosphorus Magnesium Iron TIBC Ferritin Total Bilirubin AST ALT Alkaline Phosphatase Total Creatine Kinase Troponin T C-Reactive Protein Total Protein Albumin Triglycerides HDL Cholesterol Miscellaneous Test Crossmatch 09/05/17 09/05/17 09/05/17 03:55 03:55 12:12 WBC 35.3 H RBC 2.87 L Hgb 8.1 L Hct 24.6 L MCV MCH MCHC RDW 23.3 H Plt Count Lymph % (Auto) [place] % (Auto) [place] # Seg Neutrophils % Seg Neuts % (Manual) 89.5 H Lymphocytes % (Manual) 3.0 L Monocytes % (Manual) Nucleated RBC % 2.5 H Seg Neutrophils # Seg Neutrophils # Man 31.6 H Lymphocytes # (Manual) 1.1 L Monocytes # (Manual) Eosinophils # (Manual) Basophils # (Manual) PT INR POC ABG pH ABG pH POC ABG pCO2 POC ABG pO2 ABG pO2 ABG O2 Saturation ABG Base Excess ABG Hemoglobin Oxyhemoglobin Sodium 136 L Potassium Chloride 94.7 L Carbon Dioxide BUN 55 H Creatinine 1.8 H Glucose 193 H POC Glucose 344 H Calcium 8.1 L Phosphorus Magnesium Iron TIBC Ferritin Total Bilirubin AST ALT Alkaline Phosphatase Total Creatine Kinase Troponin T C-Reactive Protein Total Protein Albumin Triglycerides HDL Cholesterol Miscellaneous Test Crossmatch 09/05/17 09/05/17 09/05/17 14:32 15:32 16:41 WBC RBC Hgb Hct MCV MCH MCHC RDW Plt Count Lymph % (Auto) [place] % (Auto) [place] # Seg Neutrophils % Seg Neuts % (Manual) Lymphocytes % (Manual) Monocytes % (Manual) Nucleated RBC % Seg Neutrophils # Seg Neutrophils # Man Lymphocytes # (Manual) Monocytes # (Manual) Eosinophils # (Manual) Basophils # (Manual) PT INR POC ABG pH ABG pH POC ABG pCO2 POC ABG pO2 ABG pO2 ABG O2 Saturation ABG Base Excess ABG Hemoglobin Oxyhemoglobin Sodium Potassium Chloride Carbon Dioxide BUN Creatinine Glucose POC Glucose 265 H 145 H 188 H Calcium Phosphorus Magnesium Iron TIBC Ferritin Total Bilirubin AST ALT Alkaline Phosphatase Total Creatine Kinase Troponin T C-Reactive Protein Total Protein Albumin Triglycerides HDL Cholesterol Miscellaneous Test Crossmatch 09/05/17 09/05/17 09/05/17 17:28 18:38 20:10 WBC RBC Hgb Hct MCV MCH MCHC RDW Plt Count Lymph % (Auto) [place] % (Auto) [place] # Seg Neutrophils % Seg Neuts % (Manual) Lymphocytes % (Manual) Monocytes % (Manual) Nucleated RBC % Seg Neutrophils # Seg Neutrophils # Man Lymphocytes # (Manual) Monocytes # (Manual) Eosinophils # (Manual) Basophils # (Manual) PT INR POC ABG pH ABG pH POC ABG pCO2 POC ABG pO2 ABG pO2 ABG O2 Saturation ABG Base Excess ABG Hemoglobin Oxyhemoglobin Sodium Potassium Chloride Carbon Dioxide BUN Creatinine Glucose POC Glucose 246 H 271 H 165 H Calcium Phosphorus Magnesium Iron TIBC Ferritin Total Bilirubin AST ALT Alkaline Phosphatase Total Creatine Kinase Troponin T C-Reactive Protein Total Protein Albumin Triglycerides HDL Cholesterol Miscellaneous Test Crossmatch 09/05/17 09/05/17 09/06/17 21:06 23:07 00:10 WBC RBC Hgb Hct MCV MCH MCHC RDW Plt Count Lymph % (Auto) [place] % (Auto) [place] # Seg Neutrophils % Seg Neuts % (Manual) Lymphocytes % (Manual) Monocytes % (Manual) Nucleated RBC % Seg Neutrophils # Seg Neutrophils # Man Lymphocytes # (Manual) Monocytes # (Manual) Eosinophils # (Manual) Basophils # (Manual) PT INR POC ABG pH ABG pH POC ABG pCO2 POC ABG pO2 ABG pO2 ABG O2 Saturation ABG Base Excess ABG Hemoglobin Oxyhemoglobin Sodium Potassium Chloride Carbon Dioxide BUN Creatinine Glucose POC Glucose 134 H 135 H 147 H Calcium Phosphorus Magnesium Iron TIBC Ferritin Total Bilirubin AST ALT Alkaline Phosphatase Total Creatine Kinase Troponin T C-Reactive Protein Total Protein Albumin Triglycerides HDL Cholesterol Miscellaneous Test Crossmatch 09/06/17 09/06/17 09/06/17 01:08 02:01 03:08 WBC RBC Hgb Hct MCV MCH MCHC RDW Plt Count Lymph % (Auto) [place] % (Auto) [place] # Seg Neutrophils % Seg Neuts % (Manual) Lymphocytes % (Manual) Monocytes % (Manual) Nucleated RBC % Seg Neutrophils # Seg Neutrophils # Man Lymphocytes # (Manual) Monocytes # (Manual) Eosinophils # (Manual) Basophils # (Manual) PT INR POC ABG pH ABG pH POC ABG pCO2 POC ABG pO2 ABG pO2 ABG O2 Saturation ABG Base Excess ABG Hemoglobin Oxyhemoglobin Sodium Potassium Chloride Carbon Dioxide BUN Creatinine Glucose POC Glucose 133 H 146 H 135 H Calcium Phosphorus Magnesium Iron TIBC Ferritin Total Bilirubin AST ALT Alkaline Phosphatase Total Creatine Kinase Troponin T C-Reactive Protein Total Protein Albumin Triglycerides HDL Cholesterol Miscellaneous Test Crossmatch 09/06/17 09/06/17 09/06/17 05:30 05:30 05:30 WBC 38.6 H RBC 2.95 L Hgb 8.3 L Hct 25.3 L MCV MCH MCHC RDW 22.2 H Plt Count Lymph % (Auto) [place] % (Auto) [place] # Seg Neutrophils % Seg Neuts % (Manual) Lymphocytes % (Manual) 2.0 L Monocytes % (Manual) Nucleated RBC % 5.0 H Seg Neutrophils # Seg Neutrophils # Man 25.9 H Lymphocytes # (Manual) 0.8 L Monocytes # (Manual) 1.9 H Eosinophils # (Manual) Basophils # (Manual) PT INR POC ABG pH ABG pH POC ABG pCO2 POC ABG pO2 ABG pO2 ABG O2 Saturation ABG Base Excess ABG Hemoglobin Oxyhemoglobin Sodium 135 L Potassium Chloride 93.5 L Carbon Dioxide BUN 82 H Creatinine 2.3 H Glucose 148 H POC Glucose Calcium Phosphorus Magnesium Iron TIBC Ferritin Total Bilirubin AST ALT Alkaline Phosphatase Total Creatine Kinase Troponin T C-Reactive Protein 2.80 H Total Protein Albumin Triglycerides HDL Cholesterol Miscellaneous Test Crossmatch 09/06/17 09/06/17 09/06/17 05:48 08:04 09:06 WBC RBC Hgb Hct MCV MCH MCHC RDW Plt Count Lymph % (Auto) [place] % (Auto) [place] # Seg Neutrophils % Seg Neuts % (Manual) Lymphocytes % (Manual) Monocytes % (Manual) Nucleated RBC % Seg Neutrophils # Seg Neutrophils # Man Lymphocytes # (Manual) Monocytes # (Manual) Eosinophils # (Manual) Basophils # (Manual) PT INR POC ABG pH ABG pH POC ABG pCO2 POC ABG pO2 ABG pO2 ABG O2 Saturation ABG Base Excess ABG Hemoglobin Oxyhemoglobin Sodium Potassium Chloride Carbon Dioxide BUN Creatinine Glucose POC Glucose 152 H 164 H 172 H Calcium Phosphorus Magnesium Iron TIBC Ferritin Total Bilirubin AST ALT Alkaline Phosphatase Total Creatine Kinase Troponin T C-Reactive Protein Total Protein Albumin Triglycerides HDL Cholesterol Miscellaneous Test Crossmatch 09/06/17 09/06/17 09/06/17 09:57 10:19 10:57 WBC RBC Hgb Hct MCV MCH MCHC RDW Plt Count Lymph % (Auto) [place] % (Auto) [place] # Seg Neutrophils % Seg Neuts % (Manual) Lymphocytes % (Manual) Monocytes % (Manual) Nucleated RBC % Seg Neutrophils # Seg Neutrophils # Man Lymphocytes # (Manual) Monocytes # (Manual) Eosinophils # (Manual) Basophils # (Manual) PT INR POC ABG pH ABG pH POC ABG pCO2 POC ABG pO2 ABG pO2 ABG O2 Saturation ABG Base Excess ABG Hemoglobin Oxyhemoglobin Sodium Potassium Chloride Carbon Dioxide BUN Creatinine Glucose POC Glucose 186 H 162 H Calcium Phosphorus Magnesium Iron TIBC Ferritin Total Bilirubin AST ALT Alkaline Phosphatase Total Creatine Kinase Troponin T C-Reactive Protein Total Protein Albumin Triglycerides HDL Cholesterol Miscellaneous Test Flexitest 1 H Crossmatch 09/06/17 09/06/17 09/06/17 13:12 13:40 17:36 WBC RBC Hgb 8.9 L Hct 28.5 L MCV MCH MCHC RDW Plt Count Lymph % (Auto) [place] % (Auto) [place] # Seg Neutrophils % Seg Neuts % (Manual) Lymphocytes % (Manual) Monocytes % (Manual) Nucleated RBC % Seg Neutrophils # Seg Neutrophils # Man Lymphocytes # (Manual) Monocytes # (Manual) Eosinophils # (Manual) Basophils # (Manual) PT INR POC ABG pH ABG pH POC ABG pCO2 POC ABG pO2 ABG pO2 ABG O2 Saturation ABG Base Excess ABG Hemoglobin Oxyhemoglobin Sodium Potassium Chloride Carbon Dioxide BUN Creatinine Glucose POC Glucose 166 H 161 H Calcium Phosphorus Magnesium Iron TIBC Ferritin Total Bilirubin AST ALT Alkaline Phosphatase Total Creatine Kinase Troponin T C-Reactive Protein Total Protein Albumin Triglycerides HDL Cholesterol Miscellaneous Test Crossmatch 09/07/17 09/07/17 09/07/17 00:13 03:50 03:50 WBC 47.0 H* RBC 2.81 L Hgb 8.1 L Hct 24.1 L MCV MCH MCHC RDW 22.5 H Plt Count Lymph % (Auto) [place] % (Auto) [place] # Seg Neutrophils % Seg Neuts % (Manual) Lymphocytes % (Manual) 9.0 L Monocytes % (Manual) Nucleated RBC % 6.0 H Seg Neutrophils # Seg Neutrophils # Man 27.3 H Lymphocytes # (Manual) Monocytes # (Manual) 0.9 H Eosinophils # (Manual) 1.9 H Basophils # (Manual) PT INR POC ABG pH ABG pH POC ABG pCO2 POC ABG pO2 ABG pO2 ABG O2 Saturation ABG Base Excess ABG Hemoglobin Oxyhemoglobin Sodium 136 L Potassium Chloride 96.3 L Carbon Dioxide BUN 61 H Creatinine 1.7 H Glucose 132 H POC Glucose 183 H Calcium 7.8 L Phosphorus Magnesium Iron TIBC Ferritin Total Bilirubin AST ALT Alkaline Phosphatase Total Creatine Kinase Troponin T C-Reactive Protein Total Protein Albumin Triglycerides HDL Cholesterol Miscellaneous Test Crossmatch 09/07/17 09/07/17 09/07/17 05:12 05:23 11:48 WBC RBC Hgb Hct MCV MCH MCHC RDW Plt Count Lymph % (Auto) [place] % (Auto) [place] # Seg Neutrophils % Seg Neuts % (Manual) Lymphocytes % (Manual) Monocytes % (Manual) Nucleated RBC % Seg Neutrophils # Seg Neutrophils # Man Lymphocytes # (Manual) Monocytes # (Manual) Eosinophils # (Manual) Basophils # (Manual) PT INR POC ABG pH ABG pH POC ABG pCO2 POC ABG pO2 ABG pO2 ABG O2 Saturation ABG Base Excess ABG Hemoglobin 7.7 L Oxyhemoglobin 94.8 L Sodium Potassium Chloride Carbon Dioxide BUN Creatinine Glucose POC Glucose 162 H 200 H Calcium Phosphorus Magnesium Iron TIBC Ferritin Total Bilirubin AST ALT Alkaline Phosphatase Total Creatine Kinase Troponin T C-Reactive Protein Total Protein Albumin Triglycerides HDL Cholesterol Miscellaneous Test Crossmatch 09/07/17 09/07/17 09/08/17 17:07 18:21 00:06 WBC RBC Hgb Hct MCV MCH MCHC RDW Plt Count Lymph % (Auto) [place] % (Auto) [place] # Seg Neutrophils % Seg Neuts % (Manual) Lymphocytes % (Manual) Monocytes % (Manual) Nucleated RBC % Seg Neutrophils # Seg Neutrophils # Man Lymphocytes # (Manual) Monocytes # (Manual) Eosinophils # (Manual) Basophils # (Manual) PT INR POC ABG pH ABG pH POC ABG pCO2 POC ABG pO2 ABG pO2 ABG O2 Saturation ABG Base Excess ABG Hemoglobin Oxyhemoglobin Sodium Potassium Chloride Carbon Dioxide BUN Creatinine Glucose POC Glucose 181 H 168 H Calcium Phosphorus Magnesium Iron TIBC Ferritin Total Bilirubin AST ALT Alkaline Phosphatase Total Creatine Kinase Troponin T C-Reactive Protein Total Protein Albumin Triglycerides HDL Cholesterol Miscellaneous Test Crossmatch See Detail 09/08/17 09/08/17 09/08/17 04:05 04:05 04:41 WBC 49.7 H* RBC 2.58 L Hgb 7.3 L Hct 22.7 L MCV MCH MCHC RDW 22.5 H Plt Count Lymph % (Auto) [place] % (Auto) [place] # Seg Neutrophils % Seg Neuts % (Manual) 90.5 H Lymphocytes % (Manual) 1.5 L Monocytes % (Manual) Nucleated RBC % Seg Neutrophils # Seg Neutrophils # Man 45.0 H Lymphocytes # (Manual) 0.7 L Monocytes # (Manual) 1.7 H Eosinophils # (Manual) Basophils # (Manual) PT INR POC ABG pH ABG pH POC ABG pCO2 POC ABG pO2 ABG pO2 ABG O2 Saturation ABG Base Excess ABG Hemoglobin Oxyhemoglobin Sodium 132 L Potassium Chloride 92.1 L Carbon Dioxide BUN 82 H Creatinine 2.2 H Glucose 162 H POC Glucose 235 H Calcium 8.3 L Phosphorus 5.20 H D Magnesium Iron TIBC Ferritin Total Bilirubin AST ALT Alkaline Phosphatase 199 H Total Creatine Kinase Troponin T C-Reactive Protein Total Protein 4.5 L Albumin 1.7 L Triglycerides HDL Cholesterol Miscellaneous Test Crossmatch 09/08/17 09/08/17 09/08/17 09:21 11:52 17:38 WBC RBC Hgb Hct MCV MCH MCHC RDW Plt Count Lymph % (Auto) [place] % (Auto) [place] # Seg Neutrophils % Seg Neuts % (Manual) Lymphocytes % (Manual) Monocytes % (Manual) Nucleated RBC % Seg Neutrophils # Seg Neutrophils # Man Lymphocytes # (Manual) Monocytes # (Manual) Eosinophils # (Manual) Basophils # (Manual) PT INR POC ABG pH ABG pH POC ABG pCO2 POC ABG pO2 ABG pO2 218.5 H ABG O2 Saturation 99.3 H ABG Base Excess -3.5 L ABG Hemoglobin 7.7 L Oxyhemoglobin Sodium Potassium Chloride Carbon Dioxide BUN Creatinine Glucose POC Glucose 220 H 194 H Calcium Phosphorus Magnesium Iron TIBC Ferritin Total Bilirubin AST ALT Alkaline Phosphatase Total Creatine Kinase Troponin T C-Reactive Protein Total Protein Albumin Triglycerides HDL Cholesterol Miscellaneous Test Crossmatch 09/09/17 09/09/17 09/09/17 00:24 03:37 03:37 WBC 33.5 H RBC 2.36 L Hgb 6.7 L Hct 20.9 L MCV MCH MCHC RDW 22.7 H Plt Count Lymph % (Auto) [place] % (Auto) [place] # Seg Neutrophils % Seg Neuts % (Manual) Lymphocytes % (Manual) Monocytes % (Manual) Nucleated RBC % Seg Neutrophils # Seg Neutrophils # Man Lymphocytes # (Manual) Monocytes # (Manual) Eosinophils # (Manual) Basophils # (Manual) PT INR POC ABG pH ABG pH POC ABG pCO2 POC ABG pO2 ABG pO2 ABG O2 Saturation ABG Base Excess ABG Hemoglobin Oxyhemoglobin Sodium 132 L Potassium Chloride 91.6 L Carbon Dioxide 21 L BUN 101 H Creatinine 2.6 H Glucose 156 H POC Glucose 182 H Calcium 8.3 L Phosphorus 5.90 H Magnesium 2.60 H Iron TIBC Ferritin Total Bilirubin AST ALT Alkaline Phosphatase Total Creatine Kinase Troponin T C-Reactive Protein Total Protein Albumin Triglycerides HDL Cholesterol Miscellaneous Test Crossmatch 09/09/17 09/09/17 09/09/17 05:29 12:03 18:05 WBC RBC Hgb Hct MCV MCH MCHC RDW Plt Count Lymph % (Auto) [place] % (Auto) [place] # Seg Neutrophils % Seg Neuts % (Manual) Lymphocytes % (Manual) Monocytes % (Manual) Nucleated RBC % Seg Neutrophils # Seg Neutrophils # Man Lymphocytes # (Manual) Monocytes # (Manual) Eosinophils # (Manual) Basophils # (Manual) PT INR POC ABG pH ABG pH POC ABG pCO2 POC ABG pO2 ABG pO2 ABG O2 Saturation ABG Base Excess ABG Hemoglobin Oxyhemoglobin Sodium Potassium Chloride Carbon Dioxide BUN Creatinine Glucose POC Glucose 168 H 143 H 173 H Calcium Phosphorus Magnesium Iron TIBC Ferritin Total Bilirubin AST ALT Alkaline Phosphatase Total Creatine Kinase Troponin T C-Reactive Protein Total Protein Albumin Triglycerides HDL Cholesterol Miscellaneous Test Crossmatch 09/09/17 09/09/17 09/10/17 23:30 Unknown 05:04 WBC RBC Hgb Hct MCV MCH MCHC RDW Plt Count Lymph % (Auto) [place] % (Auto) [place] # Seg Neutrophils % Seg Neuts % (Manual) Lymphocytes % (Manual) Monocytes % (Manual) Nucleated RBC % Seg Neutrophils # Seg Neutrophils # Man Lymphocytes # (Manual) Monocytes # (Manual) Eosinophils # (Manual) Basophils # (Manual) PT INR POC ABG pH ABG pH 7.323 L POC ABG pCO2 POC ABG pO2 ABG pO2 94.1 H ABG O2 Saturation ABG Base Excess -4.8 L ABG Hemoglobin 8.0 L Oxyhemoglobin 94.9 L Sodium Potassium Chloride Carbon Dioxide BUN Creatinine Glucose POC Glucose 212 H 155 H Calcium Phosphorus Magnesium Iron TIBC Ferritin Total Bilirubin AST ALT Alkaline Phosphatase Total Creatine Kinase Troponin T C-Reactive Protein Total Protein Albumin Triglycerides HDL Cholesterol Miscellaneous Test Crossmatch 09/10/17 09/10/17 09/10/17 07:00 09:55 12:22 WBC 24.7 H RBC 2.62 L Hgb 7.5 L Hct 22.5 L MCV MCH MCHC RDW 20.8 H Plt Count Lymph % (Auto) [place] % (Auto) [place] # Seg Neutrophils % Seg Neuts % (Manual) Lymphocytes % (Manual) Monocytes % (Manual) Nucleated RBC % Seg Neutrophils # Seg Neutrophils # Man Lymphocytes # (Manual) Monocytes # (Manual) Eosinophils # (Manual) Basophils # (Manual) PT INR POC ABG pH ABG pH POC ABG pCO2 POC ABG pO2 ABG pO2 ABG O2 Saturation ABG Base Excess ABG Hemoglobin Oxyhemoglobin Sodium Potassium Chloride 97.9 L Carbon Dioxide BUN 78 H Creatinine 2.0 H Glucose 126 H POC Glucose 183 H Calcium 8.2 L Phosphorus Magnesium Iron TIBC Ferritin Total Bilirubin AST ALT Alkaline Phosphatase Total Creatine Kinase Troponin T C-Reactive Protein Total Protein Albumin Triglycerides HDL Cholesterol Miscellaneous Test Crossmatch 09/11/17 09/11/17 09/11/17 00:08 03:50 05:28 WBC 21.6 H RBC 2.52 L Hgb 7.4 L Hct 22.2 L MCV MCH MCHC RDW 21.5 H Plt Count Lymph % (Auto) [place] % (Auto) [place] # Seg Neutrophils % Seg Neuts % (Manual) 92.0 H Lymphocytes % (Manual) 3.0 L Monocytes % (Manual) Nucleated RBC % Seg Neutrophils # Seg Neutrophils # Man 19.9 H Lymphocytes # (Manual) 0.6 L Monocytes # (Manual) Eosinophils # (Manual) Basophils # (Manual) PT INR POC ABG pH ABG pH POC ABG pCO2 POC ABG pO2 ABG pO2 ABG O2 Saturation ABG Base Excess ABG Hemoglobin Oxyhemoglobin Sodium Potassium Chloride Carbon Dioxide BUN Creatinine Glucose POC Glucose 213 H 181 H Calcium Phosphorus Magnesium Iron TIBC Ferritin Total Bilirubin AST ALT Alkaline Phosphatase Total Creatine Kinase Troponin T C-Reactive Protein Total Protein Albumin Triglycerides HDL Cholesterol Miscellaneous Test Crossmatch 09/11/17 09/11/17 09/11/17 11:55 17:56 23:12 WBC RBC Hgb Hct MCV MCH MCHC RDW Plt Count Lymph % (Auto) [place] % (Auto) [place] # Seg Neutrophils % Seg Neuts % (Manual) Lymphocytes % (Manual) Monocytes % (Manual) Nucleated RBC % Seg Neutrophils # Seg Neutrophils # Man Lymphocytes # (Manual) Monocytes # (Manual) Eosinophils # (Manual) Basophils # (Manual) PT INR POC ABG pH ABG pH POC ABG pCO2 POC ABG pO2 ABG pO2 ABG O2 Saturation ABG Base Excess ABG Hemoglobin Oxyhemoglobin Sodium Potassium Chloride Carbon Dioxide 21 L BUN 80 H Creatinine 2.1 H Glucose 170 H POC Glucose 277 H 206 H Calcium 8.0 L Phosphorus Magnesium Iron TIBC Ferritin Total Bilirubin AST ALT Alkaline Phosphatase Total Creatine Kinase Troponin T C-Reactive Protein Total Protein Albumin Triglycerides HDL Cholesterol Miscellaneous Test Crossmatch 09/11/17 09/12/17 09/12/17 23:36 05:25 05:25 WBC 17.4 H RBC 2.29 L Hgb 6.7 L Hct 20.4 L MCV MCH MCHC RDW 21.2 H Plt Count Lymph % (Auto) [place] % (Auto) [place] # Seg Neutrophils % Seg Neuts % (Manual) 79.0 H Lymphocytes % (Manual) 5.0 L Monocytes % (Manual) Nucleated RBC % 1.0 H Seg Neutrophils # Seg Neutrophils # Man 13.7 H Lymphocytes # (Manual) 0.9 L Monocytes # (Manual) 1.2 H Eosinophils # (Manual) Basophils # (Manual) PT INR POC ABG pH ABG pH POC ABG pCO2 POC ABG pO2 ABG pO2 ABG O2 Saturation ABG Base Excess ABG Hemoglobin Oxyhemoglobin Sodium Potassium Chloride Carbon Dioxide BUN Creatinine Glucose POC Glucose 190 H Calcium Phosphorus Magnesium Iron 22 L TIBC 81 L Ferritin Total Bilirubin AST ALT Alkaline Phosphatase Total Creatine Kinase Troponin T C-Reactive Protein Total Protein Albumin Triglycerides HDL Cholesterol Miscellaneous Test Crossmatch 09/12/17 09/12/17 09/12/17 05:25 05:36 09:14 WBC RBC Hgb Hct MCV MCH MCHC RDW Plt Count Lymph % (Auto) [place] % (Auto) [place] # Seg Neutrophils % Seg Neuts % (Manual) Lymphocytes % (Manual) Monocytes % (Manual) Nucleated RBC % Seg Neutrophils # Seg Neutrophils # Man Lymphocytes # (Manual) Monocytes # (Manual) Eosinophils # (Manual) Basophils # (Manual) PT INR POC ABG pH ABG pH POC ABG pCO2 POC ABG pO2 ABG pO2 ABG O2 Saturation ABG Base Excess ABG Hemoglobin Oxyhemoglobin Sodium Potassium Chloride Carbon Dioxide BUN Creatinine Glucose POC Glucose 141 H Calcium Phosphorus Magnesium Iron TIBC Ferritin > 2000.0 H Total Bilirubin AST ALT Alkaline Phosphatase Total Creatine Kinase Troponin T C-Reactive Protein Total Protein Albumin Triglycerides HDL Cholesterol Miscellaneous Test Crossmatch See Detail 09/12/17 09/12/17 09/12/17 11:18 15:22 17:18 WBC RBC Hgb 8.5 L Hct 25.4 L MCV MCH MCHC RDW Plt Count Lymph % (Auto) [place] % (Auto) [place] # Seg Neutrophils % Seg Neuts % (Manual) Lymphocytes % (Manual) Monocytes % (Manual) Nucleated RBC % Seg Neutrophils # Seg Neutrophils # Man Lymphocytes # (Manual) Monocytes # (Manual) Eosinophils # (Manual) Basophils # (Manual) PT INR POC ABG pH ABG pH POC ABG pCO2 POC ABG pO2 ABG pO2 ABG O2 Saturation ABG Base Excess ABG Hemoglobin Oxyhemoglobin Sodium Potassium Chloride Carbon Dioxide BUN Creatinine Glucose POC Glucose 262 H 193 H Calcium Phosphorus Magnesium Iron TIBC Ferritin Total Bilirubin AST ALT Alkaline Phosphatase Total Creatine Kinase Troponin T C-Reactive Protein Total Protein Albumin Triglycerides HDL Cholesterol Miscellaneous Test Crossmatch 09/13/17 09/13/17 09/13/17 00:05 06:25 11:36 WBC RBC Hgb Hct MCV MCH MCHC RDW Plt Count Lymph % (Auto) [place] % (Auto) [place] # Seg Neutrophils % Seg Neuts % (Manual) Lymphocytes % (Manual) Monocytes % (Manual) Nucleated RBC % Seg Neutrophils # Seg Neutrophils # Man Lymphocytes # (Manual) Monocytes # (Manual) Eosinophils # (Manual) Basophils # (Manual) PT INR POC ABG pH 7.347 L ABG pH POC ABG pCO2 34.3 L POC ABG pO2 134 H ABG pO2 ABG O2 Saturation ABG Base Excess ABG Hemoglobin Oxyhemoglobin Sodium Potassium Chloride Carbon Dioxide BUN Creatinine Glucose POC Glucose 235 H 286 H Calcium Phosphorus Magnesium Iron TIBC Ferritin Total Bilirubin AST ALT Alkaline Phosphatase Total Creatine Kinase Troponin T C-Reactive Protein Total Protein Albumin Triglycerides HDL Cholesterol Miscellaneous Test Crossmatch 09/13/17 09/13/17 09/13/17 11:56 17:25 23:18 WBC RBC Hgb Hct MCV MCH MCHC RDW Plt Count Lymph % (Auto) [place] % (Auto) [place] # Seg Neutrophils % Seg Neuts % (Manual) Lymphocytes % (Manual) Monocytes % (Manual) Nucleated RBC % Seg Neutrophils # Seg Neutrophils # Man Lymphocytes # (Manual) Monocytes # (Manual) Eosinophils # (Manual) Basophils # (Manual) PT INR POC ABG pH ABG pH POC ABG pCO2 POC ABG pO2 ABG pO2 ABG O2 Saturation ABG Base Excess ABG Hemoglobin Oxyhemoglobin Sodium Potassium Chloride Carbon Dioxide BUN Creatinine Glucose POC Glucose 318 H 278 H 230 H Calcium Phosphorus Magnesium Iron TIBC Ferritin Total Bilirubin AST ALT Alkaline Phosphatase Total Creatine Kinase Troponin T C-Reactive Protein Total Protein Albumin Triglycerides HDL Cholesterol Miscellaneous Test Crossmatch 09/13/17 09/13/17 09/13/17 Unknown Unknown Unknown WBC 15.6 H RBC 2.72 L Hgb 8.1 L Hct 23.9 L MCV MCH MCHC RDW 19.5 H Plt Count 137 L Lymph % (Auto) [place] % (Auto) [place] # Seg Neutrophils % Seg Neuts % (Manual) 73.0 H Lymphocytes % (Manual) 3.0 L Monocytes % (Manual) 19.0 H Nucleated RBC % 2.0 H Seg Neutrophils # Seg Neutrophils # Man 11.4 H Lymphocytes # (Manual) 0.5 L Monocytes # (Manual) 3.0 H Eosinophils # (Manual) Basophils # (Manual) PT INR POC ABG pH ABG pH POC ABG pCO2 POC ABG pO2 ABG pO2 ABG O2 Saturation ABG Base Excess ABG Hemoglobin Oxyhemoglobin Sodium Potassium Chloride Carbon Dioxide 19 L BUN 103 H Creatinine 2.6 H Glucose 173 H POC Glucose Calcium Phosphorus Magnesium Iron TIBC Ferritin Total Bilirubin AST ALT Alkaline Phosphatase Total Creatine Kinase Troponin T C-Reactive Protein Total Protein Albumin < 0.2 L Triglycerides HDL Cholesterol Miscellaneous Test Crossmatch 09/14/17 09/14/17 09/14/17 03:15 03:15 05:16 WBC 12.5 H RBC 2.55 L Hgb 7.6 L Hct 22.5 L MCV MCH MCHC RDW 19.8 H Plt Count 139 L Lymph % (Auto) [place] % (Auto) [place] # Seg Neutrophils % Seg Neuts % (Manual) Lymphocytes % (Manual) Monocytes % (Manual) Nucleated RBC % Seg Neutrophils # Seg Neutrophils # Man Lymphocytes # (Manual) Monocytes # (Manual) Eosinophils # (Manual) Basophils # (Manual) PT INR POC ABG pH ABG pH POC ABG pCO2 POC ABG pO2 ABG pO2 ABG O2 Saturation ABG Base Excess ABG Hemoglobin Oxyhemoglobin Sodium Potassium Chloride Carbon Dioxide BUN 75 H Creatinine 2.1 H Glucose 217 H POC Glucose 283 H Calcium Phosphorus 2.20 L D Magnesium Iron TIBC Ferritin Total Bilirubin AST ALT Alkaline Phosphatase Total Creatine Kinase Troponin T C-Reactive Protein Total Protein Albumin Triglycerides HDL Cholesterol Miscellaneous Test Crossmatch 09/14/17 09/14/17 09/15/17 12:11 17:47 00:03 WBC RBC Hgb Hct MCV MCH MCHC RDW Plt Count Lymph % (Auto) [place] % (Auto) [place] # Seg Neutrophils % Seg Neuts % (Manual) Lymphocytes % (Manual) Monocytes % (Manual) Nucleated RBC % Seg Neutrophils # Seg Neutrophils # Man Lymphocytes # (Manual) Monocytes # (Manual) Eosinophils # (Manual) Basophils # (Manual) PT INR POC ABG pH ABG pH POC ABG pCO2 POC ABG pO2 ABG pO2 ABG O2 Saturation ABG Base Excess ABG Hemoglobin Oxyhemoglobin Sodium Potassium Chloride Carbon Dioxide BUN Creatinine Glucose POC Glucose 251 H 289 H 229 H Calcium Phosphorus Magnesium Iron TIBC Ferritin Total Bilirubin AST ALT Alkaline Phosphatase Total Creatine Kinase Troponin T C-Reactive Protein Total Protein Albumin Triglycerides HDL Cholesterol Miscellaneous Test Crossmatch 09/15/17 09/15/17 09/15/17 05:00 05:00 05:30 WBC 11.7 H RBC 2.50 L Hgb 7.4 L Hct 22.7 L MCV MCH MCHC RDW 20.5 H Plt Count Lymph % (Auto) [place] % (Auto) [place] # Seg Neutrophils % Seg Neuts % (Manual) Lymphocytes % (Manual) 11.0 L Monocytes % (Manual) 11.0 H Nucleated RBC % Seg Neutrophils # Seg Neutrophils # Man Lymphocytes # (Manual) Monocytes # (Manual) 1.3 H Eosinophils # (Manual) Basophils # (Manual) PT INR POC ABG pH ABG pH POC ABG pCO2 POC ABG pO2 ABG pO2 ABG O2 Saturation ABG Base Excess ABG Hemoglobin Oxyhemoglobin Sodium Potassium Chloride 97.0 L Carbon Dioxide 21 L BUN 94 H Creatinine 2.4 H Glucose 194 H POC Glucose 225 H Calcium Phosphorus Magnesium Iron TIBC Ferritin Total Bilirubin AST ALT Alkaline Phosphatase Total Creatine Kinase Troponin T C-Reactive Protein Total Protein Albumin Triglycerides HDL Cholesterol Miscellaneous Test Crossmatch 09/15/17 09/15/17 09/15/17 07:48 11:38 12:45 WBC RBC 1.93 L Hgb 5.7 L* Hct 17.1 L* MCV MCH MCHC RDW 20.2 H Plt Count 125 L Lymph % (Auto) [place] % (Auto) [place] # Seg Neutrophils % Seg Neuts % (Manual) 79.0 H Lymphocytes % (Manual) 8.0 L Monocytes % (Manual) Nucleated RBC % Seg Neutrophils # Seg Neutrophils # Man Lymphocytes # (Manual) 0.8 L Monocytes # (Manual) Eosinophils # (Manual) Basophils # (Manual) PT INR POC ABG pH ABG pH POC ABG pCO2 POC ABG pO2 ABG pO2 ABG O2 Saturation ABG Base Excess ABG Hemoglobin Oxyhemoglobin Sodium Potassium Chloride Carbon Dioxide BUN Creatinine Glucose POC Glucose 245 H 253 H Calcium Phosphorus Magnesium Iron TIBC Ferritin Total Bilirubin AST ALT Alkaline Phosphatase Total Creatine Kinase Troponin T C-Reactive Protein Total Protein Albumin Triglycerides HDL Cholesterol Miscellaneous Test Crossmatch 09/15/17 09/15/17 09/15/17 12:45 12:45 22:25 WBC 19.6 H RBC 3.32 L Hgb 10.0 L D Hct 29.3 L D MCV MCH MCHC RDW 17.0 H Plt Count 123 L Lymph % (Auto) [place] % (Auto) [place] # Seg Neutrophils % Seg Neuts % (Manual) Lymphocytes % (Manual) 12.0 L Monocytes % (Manual) Nucleated RBC % 5.0 H Seg Neutrophils # Seg Neutrophils # Man 11.0 H Lymphocytes # (Manual) Monocytes # (Manual) 1.2 H Eosinophils # (Manual) Basophils # (Manual) PT 15.4 H INR 1.16 H POC ABG pH ABG pH POC ABG pCO2 POC ABG pO2 ABG pO2 ABG O2 Saturation ABG Base Excess ABG Hemoglobin Oxyhemoglobin Sodium Potassium Chloride Carbon Dioxide BUN Creatinine Glucose POC Glucose Calcium Phosphorus Magnesium Iron TIBC Ferritin Total Bilirubin AST ALT Alkaline Phosphatase Total Creatine Kinase Troponin T C-Reactive Protein Total Protein Albumin Triglycerides HDL Cholesterol Miscellaneous Test Crossmatch See Detail 09/15/17 09/15/17 09/16/17 22:25 23:38 01:26 WBC RBC Hgb Hct MCV MCH MCHC RDW Plt Count Lymph % (Auto) [place] % (Auto) [place] # Seg Neutrophils % Seg Neuts % (Manual) Lymphocytes % (Manual) Monocytes % (Manual) Nucleated RBC % Seg Neutrophils # Seg Neutrophils # Man Lymphocytes # (Manual) Monocytes # (Manual) Eosinophils # (Manual) Basophils # (Manual) PT INR POC ABG pH ABG pH POC ABG pCO2 POC ABG pO2 ABG pO2 ABG O2 Saturation ABG Base Excess ABG Hemoglobin Oxyhemoglobin Sodium Potassium Chloride Carbon Dioxide 17 L BUN 100 H Creatinine 2.6 H Glucose POC Glucose 58 L 132 H Calcium 8.3 L Phosphorus Magnesium 1.60 L Iron TIBC Ferritin Total Bilirubin 2.80 H AST 118 H ALT Alkaline Phosphatase 316 H Total Creatine Kinase Troponin T C-Reactive Protein Total Protein 4.0 L Albumin 1.8 L Triglycerides HDL Cholesterol Miscellaneous Test Crossmatch 09/16/17 09/16/17 09/16/17 05:30 05:30 05:54 WBC 24.6 H RBC 3.22 L Hgb 9.8 L Hct 28.6 L MCV MCH MCHC RDW 17.4 H Plt Count 127 L Lymph % (Auto) [place] % (Auto) [place] # Seg Neutrophils % Seg Neuts % (Manual) Lymphocytes % (Manual) Monocytes % (Manual) Nucleated RBC % Seg Neutrophils # Seg Neutrophils # Man Lymphocytes # (Manual) Monocytes # (Manual) Eosinophils # (Manual) Basophils # (Manual) PT INR POC ABG pH ABG pH POC ABG pCO2 POC ABG pO2 ABG pO2 ABG O2 Saturation ABG Base Excess ABG Hemoglobin Oxyhemoglobin Sodium Potassium Chloride Carbon Dioxide 18 L BUN 109 H Creatinine 2.5 H Glucose 140 H POC Glucose 154 H Calcium Phosphorus 4.80 H Magnesium Iron TIBC Ferritin Total Bilirubin 2.40 H AST 90 H ALT Alkaline Phosphatase 298 H Total Creatine Kinase 20 L Troponin T C-Reactive Protein Total Protein 4.1 L Albumin 1.8 L Triglycerides HDL Cholesterol Miscellaneous Test Crossmatch 09/16/17 09/16/17 09/16/17 11:49 17:04 23:18 WBC RBC Hgb Hct MCV MCH MCHC RDW Plt Count Lymph % (Auto) [place] % (Auto) [place] # Seg Neutrophils % Seg Neuts % (Manual) Lymphocytes % (Manual) Monocytes % (Manual) Nucleated RBC % Seg Neutrophils # Seg Neutrophils # Man Lymphocytes # (Manual) Monocytes # (Manual) Eosinophils # (Manual) Basophils # (Manual) PT INR POC ABG pH ABG pH POC ABG pCO2 POC ABG pO2 ABG pO2 ABG O2 Saturation ABG Base Excess ABG Hemoglobin Oxyhemoglobin Sodium Potassium Chloride Carbon Dioxide BUN Creatinine Glucose POC Glucose 167 H 156 H 162 H Calcium Phosphorus Magnesium Iron TIBC Ferritin Total Bilirubin AST ALT Alkaline Phosphatase Total Creatine Kinase Troponin T C-Reactive Protein Total Protein Albumin Triglycerides HDL Cholesterol Miscellaneous Test Crossmatch 09/17/17 09/17/17 09/17/17 05:27 06:10 06:10 WBC 34.6 H RBC 2.75 L Hgb 8.4 L Hct 24.8 L MCV MCH MCHC RDW 18.3 H Plt Count Lymph % (Auto) [place] % (Auto) [place] # Seg Neutrophils % Seg Neuts % (Manual) 77.0 H Lymphocytes % (Manual) 5.0 L Monocytes % (Manual) Nucleated RBC % 2.0 H Seg Neutrophils # Seg Neutrophils # Man 26.6 H Lymphocytes # (Manual) Monocytes # (Manual) 2.4 H Eosinophils # (Manual) Basophils # (Manual) PT INR POC ABG pH ABG pH POC ABG pCO2 POC ABG pO2 ABG pO2 ABG O2 Saturation ABG Base Excess ABG Hemoglobin Oxyhemoglobin Sodium Potassium Chloride Carbon Dioxide BUN 82 H Creatinine 2.1 H Glucose 252 H POC Glucose 243 H Calcium 8.3 L Phosphorus Magnesium Iron TIBC Ferritin Total Bilirubin AST ALT Alkaline Phosphatase Total Creatine Kinase Troponin T C-Reactive Protein Total Protein Albumin Triglycerides HDL Cholesterol Miscellaneous Test Crossmatch 09/17/17 09/17/17 09/18/17 11:42 17:12 00:08 WBC RBC Hgb Hct MCV MCH MCHC RDW Plt Count Lymph % (Auto) [place] % (Auto) [place] # Seg Neutrophils % Seg Neuts % (Manual) Lymphocytes % (Manual) Monocytes % (Manual) Nucleated RBC % Seg Neutrophils # Seg Neutrophils # Man Lymphocytes # (Manual) Monocytes # (Manual) Eosinophils # (Manual) Basophils # (Manual) PT INR POC ABG pH ABG pH POC ABG pCO2 POC ABG pO2 ABG pO2 ABG O2 Saturation ABG Base Excess ABG Hemoglobin Oxyhemoglobin Sodium Potassium Chloride Carbon Dioxide BUN Creatinine Glucose POC Glucose 232 H 309 H 275 H Calcium Phosphorus Magnesium Iron TIBC Ferritin Total Bilirubin AST ALT Alkaline Phosphatase Total Creatine Kinase Troponin T C-Reactive Protein Total Protein Albumin Triglycerides HDL Cholesterol Miscellaneous Test Crossmatch 09/18/17 09/18/17 09/18/17 05:10 05:10 05:23 WBC 24.4 H RBC 2.57 L Hgb 7.8 L Hct 23.2 L MCV MCH MCHC RDW 19.5 H Plt Count Lymph % (Auto) [place] % (Auto) [place] # Seg Neutrophils % Seg Neuts % (Manual) 78.0 H Lymphocytes % (Manual) 6.0 L Monocytes % (Manual) Nucleated RBC % 2.0 H Seg Neutrophils # Seg Neutrophils # Man 19.0 H Lymphocytes # (Manual) Monocytes # (Manual) Eosinophils # (Manual) Basophils # (Manual) PT INR POC ABG pH ABG pH POC ABG pCO2 POC ABG pO2 ABG pO2 ABG O2 Saturation ABG Base Excess ABG Hemoglobin Oxyhemoglobin Sodium Potassium Chloride Carbon Dioxide BUN 103 H Creatinine 2.8 H Glucose 173 H POC Glucose 224 H Calcium Phosphorus Magnesium Iron TIBC Ferritin Total Bilirubin AST ALT Alkaline Phosphatase Total Creatine Kinase Troponin T C-Reactive Protein Total Protein Albumin Triglycerides HDL Cholesterol Miscellaneous Test Crossmatch 09/18/17 09/18/17 09/18/17 13:59 18:35 23:19 WBC RBC Hgb Hct MCV MCH MCHC RDW Plt Count Lymph % (Auto) [place] % (Auto) [place] # Seg Neutrophils % Seg Neuts % (Manual) Lymphocytes % (Manual) Monocytes % (Manual) Nucleated RBC % Seg Neutrophils # Seg Neutrophils # Man Lymphocytes # (Manual) Monocytes # (Manual) Eosinophils # (Manual) Basophils # (Manual) PT INR POC ABG pH ABG pH POC ABG pCO2 POC ABG pO2 ABG pO2 ABG O2 Saturation ABG Base Excess ABG Hemoglobin Oxyhemoglobin Sodium Potassium Chloride Carbon Dioxide BUN Creatinine Glucose POC Glucose 268 H 220 H 188 H Calcium Phosphorus Magnesium Iron TIBC Ferritin Total Bilirubin AST ALT Alkaline Phosphatase Total Creatine Kinase Troponin T C-Reactive Protein Total Protein Albumin Triglycerides HDL Cholesterol Miscellaneous Test Crossmatch 09/19/17 09/19/17 09/19/17 05:45 06:00 11:41 WBC 17.6 H RBC 2.57 L Hgb 7.9 L Hct 23.2 L MCV MCH MCHC RDW 19.0 H Plt Count Lymph % (Auto) [place] % (Auto) [place] # Seg Neutrophils % Seg Neuts % (Manual) Lymphocytes % (Manual) 9.0 L Monocytes % (Manual) Nucleated RBC % Seg Neutrophils # Seg Neutrophils # Man 11.4 H Lymphocytes # (Manual) Monocytes # (Manual) 0.9 H Eosinophils # (Manual) Basophils # (Manual) PT INR POC ABG pH ABG pH POC ABG pCO2 POC ABG pO2 ABG pO2 ABG O2 Saturation ABG Base Excess ABG Hemoglobin Oxyhemoglobin Sodium Potassium Chloride Carbon Dioxide BUN Creatinine Glucose POC Glucose 178 H 126 H Calcium Phosphorus Magnesium Iron TIBC Ferritin Total Bilirubin AST ALT Alkaline Phosphatase Total Creatine Kinase Troponin T C-Reactive Protein Total Protein Albumin Triglycerides HDL Cholesterol Miscellaneous Test Crossmatch 09/19/17 09/19/17 09/20/17 17:08 23:46 04:46 WBC RBC Hgb Hct MCV MCH MCHC RDW Plt Count Lymph % (Auto) [place] % (Auto) [place] # Seg Neutrophils % Seg Neuts % (Manual) Lymphocytes % (Manual) Monocytes % (Manual) Nucleated RBC % Seg Neutrophils # Seg Neutrophils # Man Lymphocytes # (Manual) Monocytes # (Manual) Eosinophils # (Manual) Basophils # (Manual) PT INR POC ABG pH ABG pH POC ABG pCO2 POC ABG pO2 ABG pO2 ABG O2 Saturation ABG Base Excess ABG Hemoglobin Oxyhemoglobin Sodium Potassium 5.2 H D Chloride 97.4 L Carbon Dioxide 20 L BUN 98 H Creatinine 2.4 H Glucose 187 H POC Glucose 263 H 161 H Calcium Phosphorus Magnesium Iron TIBC Ferritin Total Bilirubin AST ALT Alkaline Phosphatase Total Creatine Kinase Troponin T C-Reactive Protein Total Protein Albumin Triglycerides HDL Cholesterol Miscellaneous Test Crossmatch 09/20/17 09/20/17 09/20/17 05:38 11:36 11:41 WBC 24.5 H RBC 2.84 L Hgb 8.2 L Hct 26.2 L MCV MCH MCHC RDW 20.0 H Plt Count 470 H Lymph % (Auto) [place] % (Auto) [place] # Seg Neutrophils % Seg Neuts % (Manual) Lymphocytes % (Manual) Monocytes % (Manual) Nucleated RBC % Seg Neutrophils # Seg Neutrophils # Man Lymphocytes # (Manual) Monocytes # (Manual) Eosinophils # (Manual) Basophils # (Manual) PT INR POC ABG pH ABG pH POC ABG pCO2 POC ABG pO2 ABG pO2 ABG O2 Saturation ABG Base Excess ABG Hemoglobin Oxyhemoglobin Sodium Potassium Chloride Carbon Dioxide BUN Creatinine Glucose POC Glucose 215 H 220 H Calcium Phosphorus Magnesium Iron TIBC Ferritin Total Bilirubin AST ALT Alkaline Phosphatase Total Creatine Kinase Troponin T C-Reactive Protein Total Protein Albumin Triglycerides HDL Cholesterol Miscellaneous Test Crossmatch 09/20/17 09/21/17 09/21/17 17:45 00:51 04:00 WBC RBC Hgb Hct MCV MCH MCHC RDW Plt Count Lymph % (Auto) [place] % (Auto) [place] # Seg Neutrophils % Seg Neuts % (Manual) Lymphocytes % (Manual) Monocytes % (Manual) Nucleated RBC % Seg Neutrophils # Seg Neutrophils # Man Lymphocytes # (Manual) Monocytes # (Manual) Eosinophils # (Manual) Basophils # (Manual) PT INR POC ABG pH ABG pH POC ABG pCO2 POC ABG pO2 ABG pO2 ABG O2 Saturation ABG Base Excess ABG Hemoglobin Oxyhemoglobin Sodium Potassium 3.2 L D Chloride 96.4 L Carbon Dioxide BUN 63 H Creatinine 1.8 H Glucose 204 H POC Glucose 122 H 137 H Calcium 8.3 L Phosphorus 2.10 L D Magnesium 1.50 L Iron TIBC Ferritin Total Bilirubin AST ALT Alkaline Phosphatase Total Creatine Kinase Troponin T C-Reactive Protein Total Protein Albumin Triglycerides HDL Cholesterol Miscellaneous Test Crossmatch 09/21/17 09/21/17 09/21/17 05:45 08:30 11:50 WBC 27.5 H RBC 2.52 L Hgb 7.7 L Hct 22.8 L MCV MCH MCHC RDW 19.2 H Plt Count 457 H Lymph % (Auto) [place] % (Auto) [place] # Seg Neutrophils % Seg Neuts % (Manual) Lymphocytes % (Manual) Monocytes % (Manual) Nucleated RBC % Seg Neutrophils # Seg Neutrophils # Man Lymphocytes # (Manual) Monocytes # (Manual) Eosinophils # (Manual) Basophils # (Manual) PT INR POC ABG pH ABG pH POC ABG pCO2 POC ABG pO2 ABG pO2 ABG O2 Saturation ABG Base Excess ABG Hemoglobin Oxyhemoglobin Sodium Potassium Chloride Carbon Dioxide BUN Creatinine Glucose POC Glucose 243 H Calcium Phosphorus Magnesium Iron TIBC Ferritin Total Bilirubin AST ALT Alkaline Phosphatase Total Creatine Kinase Troponin T C-Reactive Protein Total Protein Albumin Triglycerides HDL Cholesterol Miscellaneous Test Crossmatch See Detail 09/21/17 09/21/17 09/22/17 13:03 16:39 00:09 WBC RBC Hgb Hct MCV MCH MCHC RDW Plt Count Lymph % (Auto) [place] % (Auto) [place] # Seg Neutrophils % Seg Neuts % (Manual) Lymphocytes % (Manual) Monocytes % (Manual) Nucleated RBC % Seg Neutrophils # Seg Neutrophils # Man Lymphocytes # (Manual) Monocytes # (Manual) Eosinophils # (Manual) Basophils # (Manual) PT INR POC ABG pH ABG pH POC ABG pCO2 POC ABG pO2 ABG pO2 ABG O2 Saturation ABG Base Excess ABG Hemoglobin Oxyhemoglobin Sodium Potassium Chloride Carbon Dioxide BUN Creatinine Glucose POC Glucose 271 H 160 H 191 H Calcium Phosphorus Magnesium Iron TIBC Ferritin Total Bilirubin AST ALT Alkaline Phosphatase Total Creatine Kinase Troponin T C-Reactive Protein Total Protein Albumin Triglycerides HDL Cholesterol Miscellaneous Test Crossmatch 09/22/17 09/22/17 09/22/17 03:37 05:40 07:35 WBC 29.7 H RBC 2.71 L Hgb 8.1 L Hct 24.1 L MCV MCH MCHC RDW 19.6 H Plt Count 491 H Lymph % (Auto) [place] % (Auto) [place] # Seg Neutrophils % Seg Neuts % (Manual) 70.5 H Lymphocytes % (Manual) 12.5 L Monocytes % (Manual) 10.0 H Nucleated RBC % 2.0 H Seg Neutrophils # Seg Neutrophils # Man 20.9 H Lymphocytes # (Manual) Monocytes # (Manual) 3.0 H Eosinophils # (Manual) Basophils # (Manual) PT INR POC ABG pH ABG pH POC ABG pCO2 POC ABG pO2 ABG pO2 ABG O2 Saturation ABG Base Excess ABG Hemoglobin Oxyhemoglobin Sodium Potassium 3.0 L Chloride 95.9 L Carbon Dioxide BUN 74 H Creatinine 2.1 H Glucose 126 H POC Glucose 150 H Calcium Phosphorus 2.10 L Magnesium 1.40 L Iron TIBC Ferritin Total Bilirubin AST ALT Alkaline Phosphatase 311 H Total Creatine Kinase Troponin T C-Reactive Protein Total Protein 4.4 L Albumin 2.0 L Triglycerides HDL Cholesterol Miscellaneous Test Crossmatch 09/22/17 09/23/17 09/23/17 12:20 05:02 05:02 WBC 37.5 H RBC 2.54 L Hgb 7.3 L Hct 22.9 L MCV MCH MCHC RDW 19.4 H Plt Count 471 H Lymph % (Auto) [place] % (Auto) [place] # Seg Neutrophils % Seg Neuts % (Manual) Lymphocytes % (Manual) 8.0 L Monocytes % (Manual) Nucleated RBC % 1.0 H Seg Neutrophils # Seg Neutrophils # Man 15.0 H Lymphocytes # (Manual) Monocytes # (Manual) 1.9 H Eosinophils # (Manual) Basophils # (Manual) PT INR POC ABG pH ABG pH POC ABG pCO2 POC ABG pO2 ABG pO2 ABG O2 Saturation ABG Base Excess ABG Hemoglobin Oxyhemoglobin Sodium 136 L Potassium 3.0 L Chloride 93.8 L Carbon Dioxide BUN 99 H Creatinine 2.7 H Glucose POC Glucose 106 H Calcium 8.2 L Phosphorus 2.40 L Magnesium Iron TIBC Ferritin Total Bilirubin AST ALT Alkaline Phosphatase Total Creatine Kinase Troponin T C-Reactive Protein Total Protein Albumin Triglycerides HDL Cholesterol Miscellaneous Test Crossmatch 09/23/17 09/23/17 09/23/17 05:39 11:21 18:19 WBC RBC Hgb Hct MCV MCH MCHC RDW Plt Count Lymph % (Auto) [place] % (Auto) [place] # Seg Neutrophils % Seg Neuts % (Manual) Lymphocytes % (Manual) Monocytes % (Manual) Nucleated RBC % Seg Neutrophils # Seg Neutrophils # Man Lymphocytes # (Manual) Monocytes # (Manual) Eosinophils # (Manual) Basophils # (Manual) PT INR POC ABG pH ABG pH POC ABG pCO2 POC ABG pO2 ABG pO2 ABG O2 Saturation ABG Base Excess ABG Hemoglobin Oxyhemoglobin Sodium Potassium Chloride Carbon Dioxide BUN Creatinine Glucose POC Glucose 118 H 130 H 189 H Calcium Phosphorus Magnesium Iron TIBC Ferritin Total Bilirubin AST ALT Alkaline Phosphatase Total Creatine Kinase Troponin T C-Reactive Protein Total Protein Albumin Triglycerides HDL Cholesterol Miscellaneous Test Crossmatch 09/23/17 09/24/17 09/24/17 23:55 04:00 04:00 WBC 37.8 H RBC 2.76 L Hgb 8.1 L Hct 24.8 L MCV MCH MCHC RDW 19.8 H Plt Count 539 H Lymph % (Auto) [place] % (Auto) [place] # Seg Neutrophils % Seg Neuts % (Manual) Lymphocytes % (Manual) 4.0 L Monocytes % (Manual) Nucleated RBC % 6.0 H Seg Neutrophils # Seg Neutrophils # Man 19.3 H Lymphocytes # (Manual) Monocytes # (Manual) 1.5 H Eosinophils # (Manual) Basophils # (Manual) 0.4 H PT INR POC ABG pH ABG pH POC ABG pCO2 POC ABG pO2 ABG pO2 ABG O2 Saturation ABG Base Excess ABG Hemoglobin Oxyhemoglobin Sodium Potassium 3.5 L Chloride 95.2 L Carbon Dioxide BUN 67 H Creatinine 1.9 H Glucose 140 H POC Glucose 120 H Calcium 8.2 L Phosphorus 2.00 L Magnesium Iron TIBC Ferritin Total Bilirubin AST ALT Alkaline Phosphatase Total Creatine Kinase Troponin T C-Reactive Protein Total Protein Albumin Triglycerides HDL Cholesterol Miscellaneous Test Crossmatch 09/24/17 09/24/17 09/24/17 04:00 05:33 12:16 WBC RBC Hgb Hct MCV MCH MCHC RDW Plt Count Lymph % (Auto) [place] % (Auto) [place] # Seg Neutrophils % Seg Neuts % (Manual) Lymphocytes % (Manual) Monocytes % (Manual) Nucleated RBC % Seg Neutrophils # Seg Neutrophils # Man Lymphocytes # (Manual) Monocytes # (Manual) Eosinophils # (Manual) Basophils # (Manual) PT INR POC ABG pH ABG pH POC ABG pCO2 POC ABG pO2 ABG pO2 ABG O2 Saturation ABG Base Excess ABG Hemoglobin Oxyhemoglobin Sodium Potassium Chloride Carbon Dioxide BUN Creatinine Glucose POC Glucose 178 H 262 H Calcium Phosphorus Magnesium Iron TIBC Ferritin Total Bilirubin AST ALT Alkaline Phosphatase Total Creatine Kinase Troponin T C-Reactive Protein Total Protein Albumin Triglycerides HDL Cholesterol Miscellaneous Test Crossmatch See Detail 09/24/17 09/24/17 09/25/17 17:51 23:33 06:03 WBC RBC Hgb Hct MCV MCH MCHC RDW Plt Count Lymph % (Auto) [place] % (Auto) [place] # Seg Neutrophils % Seg Neuts % (Manual) Lymphocytes % (Manual) Monocytes % (Manual) Nucleated RBC % Seg Neutrophils # Seg Neutrophils # Man Lymphocytes # (Manual) Monocytes # (Manual) Eosinophils # (Manual) Basophils # (Manual) PT INR POC ABG pH ABG pH POC ABG pCO2 POC ABG pO2 ABG pO2 ABG O2 Saturation ABG Base Excess ABG Hemoglobin Oxyhemoglobin Sodium Potassium Chloride Carbon Dioxide BUN Creatinine Glucose POC Glucose 166 H 142 H 173 H Calcium Phosphorus Magnesium Iron TIBC Ferritin Total Bilirubin AST ALT Alkaline Phosphatase Total Creatine Kinase Troponin T C-Reactive Protein Total Protein Albumin Triglycerides HDL Cholesterol Miscellaneous Test Crossmatch 09/25/17 09/25/17 09/25/17 07:49 07:49 11:36 WBC 59.6 H* RBC 2.63 L Hgb 7.7 L Hct 26.0 L MCV 99 H MCH MCHC RDW 21.8 H Plt Count Lymph % (Auto) [place] % (Auto) [place] # Seg Neutrophils % Seg Neuts % (Manual) Lymphocytes % (Manual) 2.0 L Monocytes % (Manual) Nucleated RBC % 8.0 H Seg Neutrophils # Seg Neutrophils # Man 41.7 H Lymphocytes # (Manual) Monocytes # (Manual) 1.2 H Eosinophils # (Manual) Basophils # (Manual) PT INR POC ABG pH ABG pH POC ABG pCO2 POC ABG pO2 ABG pO2 ABG O2 Saturation ABG Base Excess ABG Hemoglobin Oxyhemoglobin Sodium Potassium 5.3 H D Chloride 97.7 L Carbon Dioxide 19 L BUN 90 H Creatinine 2.5 H Glucose 181 H POC Glucose 308 H Calcium 8.0 L Phosphorus Magnesium Iron TIBC Ferritin Total Bilirubin AST ALT Alkaline Phosphatase Total Creatine Kinase Troponin T C-Reactive Protein Total Protein Albumin Triglycerides HDL Cholesterol Miscellaneous Test Crossmatch 09/25/17 09/25/17 09/26/17 16:11 23:38 05:25 WBC 61.9 H* RBC 2.30 L Hgb 7.0 L Hct 21.4 L MCV MCH MCHC RDW 21.3 H Plt Count Lymph % (Auto) [place] % (Auto) [place] # Seg Neutrophils % Seg Neuts % (Manual) Lymphocytes % (Manual) 1.0 L Monocytes % (Manual) Nucleated RBC % 7.0 H Seg Neutrophils # Seg Neutrophils # Man 37.1 H Lymphocytes # (Manual) 0.6 L Monocytes # (Manual) 1.9 H Eosinophils # (Manual) Basophils # (Manual) PT INR POC ABG pH ABG pH POC ABG pCO2 POC ABG pO2 ABG pO2 ABG O2 Saturation ABG Base Excess ABG Hemoglobin Oxyhemoglobin Sodium Potassium Chloride Carbon Dioxide BUN Creatinine Glucose POC Glucose 249 H 263 H Calcium Phosphorus Magnesium Iron TIBC Ferritin Total Bilirubin AST ALT Alkaline Phosphatase Total Creatine Kinase Troponin T C-Reactive Protein Total Protein Albumin Triglycerides HDL Cholesterol Miscellaneous Test Crossmatch 09/26/17 09/26/17 09/26/17 05:25 05:32 11:33 WBC RBC Hgb Hct MCV MCH MCHC RDW Plt Count Lymph % (Auto) [place] % (Auto) [place] # Seg Neutrophils % Seg Neuts % (Manual) Lymphocytes % (Manual) Monocytes % (Manual) Nucleated RBC % Seg Neutrophils # Seg Neutrophils # Man Lymphocytes # (Manual) Monocytes # (Manual) Eosinophils # (Manual) Basophils # (Manual) PT INR POC ABG pH ABG pH POC ABG pCO2 POC ABG pO2 ABG pO2 ABG O2 Saturation ABG Base Excess ABG Hemoglobin Oxyhemoglobin Sodium Potassium Chloride Carbon Dioxide 21 L BUN 81 H Creatinine 2.3 H Glucose 178 H POC Glucose 225 H 246 H Calcium 8.1 L Phosphorus Magnesium Iron TIBC Ferritin Total Bilirubin AST ALT Alkaline Phosphatase Total Creatine Kinase Troponin T C-Reactive Protein Total Protein Albumin Triglycerides HDL Cholesterol Miscellaneous Test Crossmatch 09/26/17 09/27/17 09/27/17 17:43 00:11 04:00 WBC 63.0 H* RBC 2.23 L Hgb 6.3 L Hct 20.6 L MCV MCH MCHC RDW 20.6 H Plt Count Lymph % (Auto) [place] % (Auto) [place] # Seg Neutrophils % Seg Neuts % (Manual) Lymphocytes % (Manual) 3.0 L Monocytes % (Manual) Nucleated RBC % 6.0 H Seg Neutrophils # Seg Neutrophils # Man 40.3 H Lymphocytes # (Manual) Monocytes # (Manual) 4.4 H Eosinophils # (Manual) Basophils # (Manual) PT INR POC ABG pH ABG pH POC ABG pCO2 POC ABG pO2 ABG pO2 ABG O2 Saturation ABG Base Excess ABG Hemoglobin Oxyhemoglobin Sodium Potassium Chloride Carbon Dioxide BUN Creatinine Glucose POC Glucose 180 H 194 H Calcium Phosphorus Magnesium Iron TIBC Ferritin Total Bilirubin AST ALT Alkaline Phosphatase Total Creatine Kinase Troponin T C-Reactive Protein Total Protein Albumin Triglycerides HDL Cholesterol Miscellaneous Test Crossmatch 09/27/17 09/27/17 09/27/17 04:00 04:00 05:11 WBC RBC Hgb Hct MCV MCH MCHC RDW Plt Count Lymph % (Auto) [place] % (Auto) [place] # Seg Neutrophils % Seg Neuts % (Manual) Lymphocytes % (Manual) Monocytes % (Manual) Nucleated RBC % Seg Neutrophils # Seg Neutrophils # Man Lymphocytes # (Manual) Monocytes # (Manual) Eosinophils # (Manual) Basophils # (Manual) PT INR POC ABG pH ABG pH POC ABG pCO2 POC ABG pO2 ABG pO2 ABG O2 Saturation ABG Base Excess ABG Hemoglobin Oxyhemoglobin Sodium Potassium Chloride Carbon Dioxide 19 L BUN 102 H Creatinine 2.8 H Glucose 141 H POC Glucose 189 H Calcium 8.1 L Phosphorus Magnesium 2.40 H Iron TIBC Ferritin Total Bilirubin AST ALT Alkaline Phosphatase Total Creatine Kinase Troponin T C-Reactive Protein Total Protein Albumin Triglycerides HDL Cholesterol Miscellaneous Test Crossmatch 09/27/17 09/27/17 09/27/17 08:58 11:54 17:20 WBC RBC Hgb Hct MCV MCH MCHC RDW Plt Count Lymph % (Auto) [place] % (Auto) [place] # Seg Neutrophils % Seg Neuts % (Manual) Lymphocytes % (Manual) Monocytes % (Manual) Nucleated RBC % Seg Neutrophils # Seg Neutrophils # Man Lymphocytes # (Manual) Monocytes # (Manual) Eosinophils # (Manual) Basophils # (Manual) PT INR POC ABG pH ABG pH POC ABG pCO2 POC ABG pO2 ABG pO2 ABG O2 Saturation ABG Base Excess ABG Hemoglobin Oxyhemoglobin Sodium Potassium Chloride Carbon Dioxide BUN Creatinine Glucose POC Glucose 196 H 199 H Calcium Phosphorus Magnesium Iron TIBC Ferritin Total Bilirubin AST ALT Alkaline Phosphatase Total Creatine Kinase Troponin T C-Reactive Protein Total Protein Albumin Triglycerides HDL Cholesterol Miscellaneous Test Crossmatch See Detail 09/28/17 09/28/17 09/28/17 00:11 05:23 12:07 WBC RBC Hgb Hct MCV MCH MCHC RDW Plt Count Lymph % (Auto) [place] % (Auto) [place] # Seg Neutrophils % Seg Neuts % (Manual) Lymphocytes % (Manual) Monocytes % (Manual) Nucleated RBC % Seg Neutrophils # Seg Neutrophils # Man Lymphocytes # (Manual) Monocytes # (Manual) Eosinophils # (Manual) Basophils # (Manual) PT INR POC ABG pH ABG pH POC ABG pCO2 POC ABG pO2 ABG pO2 ABG O2 Saturation ABG Base Excess ABG Hemoglobin Oxyhemoglobin Sodium Potassium Chloride Carbon Dioxide BUN Creatinine Glucose POC Glucose 155 H 237 H 218 H Calcium Phosphorus Magnesium Iron TIBC Ferritin Total Bilirubin AST ALT Alkaline Phosphatase Total Creatine Kinase Troponin T C-Reactive Protein Total Protein Albumin Triglycerides HDL Cholesterol Miscellaneous Test Crossmatch 09/28/17 09/28/17 09/28/17 17:58 Unknown Unknown WBC 39.0 H RBC 3.10 L Hgb 9.6 L D Hct 27.6 L D MCV MCH MCHC 35 H RDW 17.1 H Plt Count Lymph % (Auto) [place] % (Auto) [place] # Seg Neutrophils % Seg Neuts % (Manual) 80.5 H Lymphocytes % (Manual) 0.5 L Monocytes % (Manual) Nucleated RBC % Seg Neutrophils # Seg Neutrophils # Man 31.4 H Lymphocytes # (Manual) 0.2 L Monocytes # (Manual) 2.5 H Eosinophils # (Manual) Basophils # (Manual) PT INR POC ABG pH ABG pH POC ABG pCO2 POC ABG pO2 ABG pO2 ABG O2 Saturation ABG Base Excess ABG Hemoglobin Oxyhemoglobin Sodium Potassium 3.4 L D Chloride Carbon Dioxide BUN 72 H Creatinine 2.0 H Glucose 194 H POC Glucose 108 H Calcium 7.4 L Phosphorus Magnesium Iron TIBC Ferritin Total Bilirubin AST ALT Alkaline Phosphatase Total Creatine Kinase Troponin T C-Reactive Protein Total Protein Albumin Triglycerides HDL Cholesterol Miscellaneous Test Crossmatch 09/29/17 09/29/17 09/29/17 00:12 06:00 06:00 WBC 28.0 H RBC 2.92 L Hgb 8.7 L Hct 26.5 L MCV MCH MCHC RDW 17.1 H Plt Count Lymph % (Auto) [place] % (Auto) [place] # Seg Neutrophils % Seg Neuts % (Manual) 74.5 H Lymphocytes % (Manual) 5.5 L Monocytes % (Manual) 10.5 H Nucleated RBC % Seg Neutrophils # Seg Neutrophils # Man 20.9 H Lymphocytes # (Manual) Monocytes # (Manual) 2.9 H Eosinophils # (Manual) Basophils # (Manual) PT INR POC ABG pH ABG pH POC ABG pCO2 POC ABG pO2 ABG pO2 ABG O2 Saturation ABG Base Excess ABG Hemoglobin Oxyhemoglobin Sodium Potassium Chloride 97.9 L Carbon Dioxide BUN 101 H Creatinine 2.5 H Glucose 177 H POC Glucose 117 H Calcium 7.6 L Phosphorus Magnesium Iron TIBC Ferritin Total Bilirubin AST ALT Alkaline Phosphatase Total Creatine Kinase Troponin T C-Reactive Protein Total Protein Albumin Triglycerides HDL Cholesterol Miscellaneous Test Crossmatch 09/29/17 06:27 WBC RBC Hgb Hct MCV MCH MCHC RDW Plt Count Lymph % (Auto) [place] % (Auto) [place] # Seg Neutrophils % Seg Neuts % (Manual) Lymphocytes % (Manual) Monocytes % (Manual) Nucleated RBC % Seg Neutrophils # Seg Neutrophils # Man Lymphocytes # (Manual) Monocytes # (Manual) Eosinophils # (Manual) Basophils # (Manual) PT INR POC ABG pH ABG pH POC ABG pCO2 POC ABG pO2 ABG pO2 ABG O2 Saturation ABG Base Excess ABG Hemoglobin Oxyhemoglobin Sodium Potassium Chloride Carbon Dioxide BUN Creatinine Glucose POC Glucose 183 H Calcium Phosphorus Magnesium Iron TIBC Ferritin Total Bilirubin AST ALT Alkaline Phosphatase Total Creatine Kinase Troponin T C-Reactive Protein Total Protein Albumin Triglycerides HDL Cholesterol Miscellaneous Test Crossmatch Chest x-ray: report reviewed, image reviewed
--- NOTE | 2017-09-29 16:01 | Progress Note ---
Assessment and Plan - Patient Problems (1) Leukocytosis Current Visit: Yes Status: Acute Qualifiers: Leukocytosis type: L Plan to address problem: See notes above. make sure that PD access is clean also. see notes. Probably infection from the infected PD catheter. improving. back up again. up/down continue to monitor. it continuos to rise. still high. improved. Back up. Now improving again. still in the same range as yesterday.. worse today. 37,000 59,000 61.9 63,000. 39,000 today. 28,000. (2) Anemia Current Visit: Yes Status: Acute Qualifiers: Anemia type: A Iron deficiency anemia type: I Vitamin B12 deficiency anemia type: V Folate deficiency anemia type: F Bone marrow failure anemia type: B Hemolytic anemia type: H Other causes of anemia: O Chronic kidney disease stage: C Plan to address problem: see notes , monitor labs,. see notes above. continue to monitor labs with you. blood transfusion. S/P replacement transfusion. fair. s/p 1unit transfusion. see notes. Still at 7.4 6.9, scheduled for replacement. Fairly stable at this time. continue to monitor. If less, or equal to 7.0, will need replacement transfusion, with HD. Fair at this time. 7.7 today 7.0, needs blood with next HD. 6.3, and transfused. better post transfusion. stable. (3) Acute respiratory failure Current Visit: Yes Status: Acute Qualifiers: Respiratory failure complication: R Plan to address problem: follow pulm. Subjective Date of service: 09/29/17 Principal diagnosis: respiratory failure, sepsis, shock rectal bleeding Interval history: Patient seen today/examined, labs reviewed, case d/w she, and family.complaints of abdominal pain. Patient resting in bed in the ICU, post vascular procedure. labs reviewed, Reactive thrombocytosis, anemia of CD, leukocytosis from infection vs inflamatory process. Patient seen/examined, in bed in the ICU, on the vent post surgery.Labs reviewed , notes reviewed. will continue to monitor labs/patient with you. Replacement transfusion, if /when indicated. patient seen/examined, SBP75, on pressors., lethargic, on the vent, labs reviewed, wbc 39,000 Patient seen/examined, case reviewed, d/w her sister at the bed side. Patient seen/examined, labs reviewed, notes reviewed. severe septic shock from infected PD catheter The high wbc is all infection related. H?H low, and may get replacement transfusion with the next HD. Prognosis remain quite poor. Patient seen/examined, extubated, now on V Mask. labs reviewed. patient seen/examined, resting in bed, still some what lethargic . labs reviewed. Patient seen/examined, resting in bed., some difficulty with breathing./ lethargic. patient seen/examined, resting in bed, looked much better labs reviewed, and fair over all. Patient seen/examined, resting in bed, labs reviewed, case d/w her. Patient seen/examined, resting in bed on BIPAP., labs reviewed. patient seen/examined, resting in bed, on Bipap.labs reviewed, fairly stable. Patient seen today, resting in bed, labs reviewed, H/H low, and transfusion already ordered. Patient seen/examined, resting in bed, transferred back to the unit, due to resp failure. She is now on venting mask. had blood replacement done. Patient seen/examined in the ICU.labs reviewed. patient intubated this am. patient resting in bed.no new issues. Patient seen/examined in the ICU, on vent,Not readily responsive. patient seen, resting in bed, no new cbc ready.will order for today. Patient seen, resting in vent, labs reviewed.notes reviewed also. patient seen/examined, resting on vent, had HD yesterday, and today., labs reviewed. Patient seen, resting in bed, labs reviewed.fairly stable labs, except the wbc. Patient seen/examined, rtesting in bed on the vent.Labs reviewed, wbc still elevated, Hgb dropped slightly. Patient seen/examined, labs reviewed, hgb 7.3, if 7.0 or less, will replace .unless otherwise indicated. Patient seen/examined, alert but lethargic.sedation drip turned down.she is s/p 1unit PRBC replacement with HD today. Patient seen/examined, labs reviewed, hgb still not quite enough at 7.5, perhaps with the next HD,can use 1-2 units. Patient seen/examined, resting in bed, trached, labs re viewed. Patient seen/examined, resting in bed, responds to name calling, SBP99, labs reviewed, Hgb 6.9, PRBC replacement ordered by primary. Patient seen/examined, in bed/trach, NGT., alert/lethargic. Patient seen/examined, resting in bed, still lethargic, labs reviewed, and still fair.Will continue to follow you. Patient seen/examined, resting in bed, labs reviewed. HD in progress.She is now getting daily HD.Labs reviewed, and still fair. Patient seen/examined, resting in bed, less lethargic/less toxic looking. labs have improved. Patient seen/examined, labs reviewed, fair, case d/w her spouse at the bed side. Patient seen/examined, resting ok in bed, alert, NAD, HD in progress.Labs reviewed, and WBC 27,000, Hgb 7.8. Patient seen/examined, resting in bed in the ICU, NAD.labs reviewed, and fair. Patient seen/examined, resting in bed, labs reviewed, WBC back up,to37,000, and Hgb down to 7.3, transfusion will be needed ,if hgb less, or equal to 7.0 Patient seen/examined, resting in bed in the ICU, alert, lethargic, labs reviewed, and fair. She remains on 5mics of levophed., Temp 100. Patient seen/examined in the ICU, alert, Labs reviewed, WBC 59,000. Patient seen/examined, resting in bed, labs reviewed, WBC up to 61.9,000, Hgb 7.0, and may benefit from PRBC replacement of 2units with HD. Patient seen/examined, resting in bed, easily awoken.Hgb low at 6.3, replaced earlier with HD today.will need repeat labs in am. Patient seen/examined today, resting in bed in the ICU, labs reviewed, WBC down again to 39,000., H/H stable, post transfusion. Patient seen/examined, labs reviewed, case d/w her spouse at the bed side. WBC down to 28,000. Objective - Constitutional Vitals: Vital Signs - 12hr 09/29/17 09/29/17 09/29/17 04:00 04:15 04:24 Temperature 98.8 F Pulse Rate 89 91 H 91 H Pulse Rate [ Anterior Bilateral Throughout] Respiratory 18 14 Rate Respiratory Rate [Anterior Bilateral Throughout] Blood Pressure 118/56 110/47 110/47 O2 Sat by Pulse 100 96 Oximetry O2 Sat by Pulse Oximetry [ Assessment] 09/29/17 09/29/17 09/29/17 04:30 04:50 05:01 Temperature Pulse Rate 93 H 90 90 Pulse Rate [ Anterior Bilateral Throughout] Respiratory 22 18 19 Rate Respiratory Rate [Anterior Bilateral Throughout] Blood Pressure 111/84 127/35 O2 Sat by Pulse Oximetry O2 Sat by Pulse Oximetry [ Assessment] 09/29/17 09/29/17 09/29/17 05:15 05:31 05:45 Temperature Pulse Rate 88 89 92 H Pulse Rate [ Anterior Bilateral Throughout] Respiratory 20 23 22 Rate Respiratory Rate [Anterior Bilateral Throughout] Blood Pressure 118/81 108/78 121/24 O2 Sat by Pulse Oximetry O2 Sat by Pulse Oximetry [ Assessment] 09/29/17 09/29/17 09/29/17 06:00 06:15 06:31 Temperature Pulse Rate 94 H 92 H 95 H Pulse Rate [ Anterior Bilateral Throughout] Respiratory 18 18 22 Rate Respiratory Rate [Anterior Bilateral Throughout] Blood Pressure 141/109 163/46 109/45 O2 Sat by Pulse Oximetry O2 Sat by Pulse Oximetry [ Assessment] 09/29/17 09/29/17 09/29/17 06:45 07:01 07:15 Temperature Pulse Rate 90 84 89 Pulse Rate [ Anterior Bilateral Throughout] Respiratory 16 18 16 Rate Respiratory Rate [Anterior Bilateral Throughout] Blood Pressure 105/53 104/50 110/52 O2 Sat by Pulse 98 98 97 Oximetry O2 Sat by Pulse Oximetry [ Assessment] 09/29/17 09/29/17 09/29/17 07:31 07:45 07:53 Temperature 98.2 F Pulse Rate 89 88 Pulse Rate [ Anterior Bilateral Throughout] Respiratory 18 19 Rate Respiratory Rate [Anterior Bilateral Throughout] Blood Pressure 124/56 114/56 O2 Sat by Pulse 100 100 Oximetry O2 Sat by Pulse Oximetry [ Assessment] 09/29/17 09/29/17 09/29/17 08:00 08:01 08:15 Temperature Pulse Rate 91 H 90 Pulse Rate [ Anterior Bilateral Throughout] Respiratory 23 18 Rate Respiratory Rate [Anterior Bilateral Throughout] Blood Pressure 111/56 112/54 O2 Sat by Pulse 100 100 100 Oximetry O2 Sat by Pulse Oximetry [ Assessment] 09/29/17 09/29/17 09/29/17 08:31 08:45 08:55 Temperature Pulse Rate 93 H 92 H 94 H Pulse Rate [ Anterior Bilateral Throughout] Respiratory 23 16 Rate Respiratory Rate [Anterior Bilateral Throughout] Blood Pressure 107/56 105/56 105/56 O2 Sat by Pulse 100 100 100 Oximetry O2 Sat by Pulse Oximetry [ Assessment] 09/29/17 09/29/17 09/29/17 08:58 09:00 09:01 Temperature Pulse Rate 93 H 94 H Pulse Rate [ Anterior Bilateral Throughout] Respiratory 28 H 21 Rate Respiratory Rate [Anterior Bilateral Throughout] Blood Pressure 105/56 123/54 O2 Sat by Pulse 100 100 Oximetry O2 Sat by Pulse 100 Oximetry [ Assessment] 09/29/17 09/29/17 09/29/17 09:03 09:10 09:15 Temperature Pulse Rate 95 H Pulse Rate [ 95 H 94 H Anterior Bilateral Throughout] Respiratory 23 Rate Respiratory 26 H 22 Rate [Anterior Bilateral Throughout] Blood Pressure 105/56 O2 Sat by Pulse 100 Oximetry O2 Sat by Pulse Oximetry [ Assessment] 09/29/17 09/29/17 09/29/17 09:31 09:45 10:01 Temperature Pulse Rate 94 H 95 H 97 H Pulse Rate [ Anterior Bilateral Throughout] Respiratory 22 19 21 Rate Respiratory Rate [Anterior Bilateral Throughout] Blood Pressure 118/51 119/42 108/53 O2 Sat by Pulse 99 100 100 Oximetry O2 Sat by Pulse Oximetry [ Assessment] 09/29/17 09/29/17 09/29/17 10:15 10:31 10:45 Temperature Pulse Rate 99 H 97 H 94 H Pulse Rate [ Anterior Bilateral Throughout] Respiratory 24 30 H 32 H Rate Respiratory Rate [Anterior Bilateral Throughout] Blood Pressure 123/54 113/53 99/51 O2 Sat by Pulse 100 96 97 Oximetry O2 Sat by Pulse Oximetry [ Assessment] 09/29/17 09/29/17 09/29/17 11:00 11:01 11:15 Temperature Pulse Rate 98 H 98 H 102 H Pulse Rate [ Anterior Bilateral Throughout] Respiratory 28 H 28 H 27 H Rate Respiratory Rate [Anterior Bilateral Throughout] Blood Pressure 110/53 110/53 116/52 O2 Sat by Pulse 98 98 100 Oximetry O2 Sat by Pulse Oximetry [ Assessment] 09/29/17 09/29/17 09/29/17 11:31 11:45 12:00 Temperature 98.3 F Pulse Rate 101 H 102 H Pulse Rate [ Anterior Bilateral Throughout] Respiratory 24 23 Rate Respiratory Rate [Anterior Bilateral Throughout] Blood Pressure 110/51 111/49 O2 Sat by Pulse 100 100 Oximetry O2 Sat by Pulse Oximetry [ Assessment] 09/29/17 09/29/17 09/29/17 12:01 12:15 12:31 Temperature Pulse Rate 102 H 98 H 99 H Pulse Rate [ Anterior Bilateral Throughout] Respiratory 24 23 23 Rate Respiratory Rate [Anterior Bilateral Throughout] Blood Pressure 97/43 93/42 110/55 O2 Sat by Pulse 100 100 100 Oximetry O2 Sat by Pulse Oximetry [ Assessment] 09/29/17 09/29/17 09/29/17 12:45 13:00 13:15 Temperature Pulse Rate 102 H 105 H 100 H Pulse Rate [ Anterior Bilateral Throughout] Respiratory 23 22 20 Rate Respiratory Rate [Anterior Bilateral Throughout] Blood Pressure 112/51 109/46 110/49 O2 Sat by Pulse 100 99 100 Oximetry O2 Sat by Pulse Oximetry [ Assessment] 09/29/17 13:30 Temperature Pulse Rate 96 H Pulse Rate [ Anterior Bilateral Throughout] Respiratory 19 Rate Respiratory Rate [Anterior Bilateral Throughout] Blood Pressure 106/49 O2 Sat by Pulse 99 Oximetry O2 Sat by Pulse Oximetry [ Assessment] General appearance: Present: mild distress - EENT Eyes: PERRL, EOM intact ENT: hearing intact, clear oral mucosa Ears: bilateral: normal - Neck Neck: supple, normal ROM - Respiratory Respiratory: bilateral: diminished, rhonchi - Breasts Breasts: deferred - Cardiovascular Rhythm: regular Heart Sounds: Present: S1 & S2. Absent: gallop, rub Extremities: pulses intact, No edema, normal color, Full ROM - Gastrointestinal General gastrointestinal: Present: soft, non-tender, non-distended, normal bowel sounds Rectal Exam: deferred - Genitourinary Female genitourinary: deferred - Integumentary Integumentary: clear, warm, dry - Musculoskeletal Musculoskeletal: 1, strength equal bilaterally - Neurologic Neurologic: moves all extremities - Psychiatric Psychiatric: appropriate mood/affect - Labs CBC & Chem 7: 09/29/17 06:00 09/29/17 06:00 Labs: Abnormal lab results 09/28/17 09/29/17 09/29/17 Range/Units 17:58 00:12 06:00 WBC 28.0 H (4.5-11.0) K/mm3 RBC 2.92 L (3.65-5.03) M/mm3 Hgb 8.7 L (10.1-14.3) gm/dl Hct 26.5 L (30.3-42.9) % RDW 17.1 H (13.2-15.2) % Seg Neuts % (Manual) 74.5 H (40.0-70.0) % Lymphocytes % (Manual) 5.5 L (13.4-35.0) % Monocytes % (Manual) 10.5 H (0.0-7.3) % Seg Neutrophils # Man 20.9 H (1.8-7.7) K/mm3 Monocytes # (Manual) 2.9 H (0.0-0.8) K/mm3 Chloride (98-107) mmol/L BUN (7-17) mg/dL Creatinine (0.7-1.2) mg/dL Glucose (65-100) mg/dL POC Glucose 108 H 117 H (70-105) Calcium (8.4-10.2) mg/dL 09/29/17 09/29/17 Range/Units 06:00 06:27 WBC (4.5-11.0) K/mm3 RBC (3.65-5.03) M/mm3 Hgb (10.1-14.3) gm/dl Hct (30.3-42.9) % RDW (13.2-15.2) % Seg Neuts % (Manual) (40.0-70.0) % Lymphocytes % (Manual) (13.4-35.0) % Monocytes % (Manual) (0.0-7.3) % Seg Neutrophils # Man (1.8-7.7) K/mm3 Monocytes # (Manual) (0.0-0.8) K/mm3 Chloride 97.9 L (98-107) mmol/L BUN 101 H (7-17) mg/dL Creatinine 2.5 H (0.7-1.2) mg/dL Glucose 177 H (65-100) mg/dL POC Glucose 183 H (70-105) Calcium 7.6 L (8.4-10.2) mg/dL
--- NOTE | 2017-09-29 17:06 | Progress Note ---
Assessment and Plan Assessment and Plan Assessment and plan: Septic shock. Patient with previous abdominal abscess and CAUTI. ID following. Cont. meropenem and fluconazole (previous agents - meropenem/ micafungin for Presumed Surgical wound infection / dehiscence ? wound + MRSA, E faecalis and Kristine albicans) Pt. with recent small bowel enterotomy leak. Worsening leukocytosis. Patient still requiring pressors. Acute hypoxic respiratory failure. Patient remains on mechanical ventilation. Continue weaning per pulmonary MRSA in tracheal aspirate ? colonizer versus VAP Peritonitis/intra-abdominal abscess/ Initial Bowel obstruction (related to likely gastric perforation). 09/24/17: ex lap with abdominal washout and placement of biologic mesh and proximal aspect of midline wound, closure of enterotomy 09/15/17: Ex lap, transverse colectomy, R colostomy and abdominal wash out 08/31: Ex lap with abdominal wash out and closure 08/17: Ex lap with G tube placement, EGD, abdominal wash out and removal of PD Cath (OR findings - bowel obstruction due to entanglement of PD cath, abscess cavity in LUQ and ? suspect perforation of unclear location) Cont. TPN End-stage renal disease -patient previously with peritoneal dialysis that has been discontinued -Hemodialysis per nephrology. -needs perm cath when improved Anemia -etiology, likely secondary to blood loss anemia. Transfuse 2 units PRBCs with Hemodialysis. No active bleeding Ulcerative esophagitis/small gastric ulcer. Patient status post EGD. s/p multiple transfusions -Patient had CTA of abdomen and pelvis that revealed no active bleeding, CT Abdomen repeated 09/06, no acute findings CAUTI. Completed antibiotics Protein calorie malnutrition. -Continue TPN. Leukocytosis. -down to 29 K today -ID following cont. per ID rec. -Follow up CBC Recent pancreatitis. resolved Penicillin allergy-has taken keflex w/o problems in past NSVT cardiology believes that etiology was secondary to Levophed which now has been weaned off History of cervical surgery and postoperative wheelchair bound since then - pain control DVT prophylaxis Disposition - Prognosis is extremely guarded. Subjective Date of service: 09/29/17 Principal diagnosis: respiratory failure, sepsis, shock rectal bleeding Interval history: Patient is awake Intubated via tracheostomy She does not follow simple commands On norepinephrine drip All interdisciplinary note reviewed Lab results reviewed Objective - Constitutional Vitals: Vital Signs - 12hr 09/29/17 09/29/17 09/29/17 05:15 05:31 05:45 Temperature Pulse Rate 88 89 92 H Pulse Rate [ Anterior Bilateral Throughout] Pulse Rate [ From Monitor] Respiratory 20 23 22 Rate Respiratory Rate [Anterior Bilateral Throughout] Blood Pressure 118/81 108/78 121/24 O2 Sat by Pulse Oximetry O2 Sat by Pulse Oximetry [ Assessment] 09/29/17 09/29/17 09/29/17 06:00 06:15 06:31 Temperature Pulse Rate 94 H 92 H 95 H Pulse Rate [ Anterior Bilateral Throughout] Pulse Rate [ From Monitor] Respiratory 18 18 22 Rate Respiratory Rate [Anterior Bilateral Throughout] Blood Pressure 141/109 163/46 109/45 O2 Sat by Pulse Oximetry O2 Sat by Pulse Oximetry [ Assessment] 09/29/17 09/29/17 09/29/17 06:45 07:01 07:15 Temperature Pulse Rate 90 84 89 Pulse Rate [ Anterior Bilateral Throughout] Pulse Rate [ From Monitor] Respiratory 16 18 16 Rate Respiratory Rate [Anterior Bilateral Throughout] Blood Pressure 105/53 104/50 110/52 O2 Sat by Pulse 98 98 97 Oximetry O2 Sat by Pulse Oximetry [ Assessment] 09/29/17 09/29/17 09/29/17 07:31 07:45 07:53 Temperature 98.2 F Pulse Rate 89 88 Pulse Rate [ Anterior Bilateral Throughout] Pulse Rate [ From Monitor] Respiratory 18 19 Rate Respiratory Rate [Anterior Bilateral Throughout] Blood Pressure 124/56 114/56 O2 Sat by Pulse 100 100 Oximetry O2 Sat by Pulse Oximetry [ Assessment] 09/29/17 09/29/17 09/29/17 08:00 08:01 08:15 Temperature Pulse Rate 91 H 90 Pulse Rate [ Anterior Bilateral Throughout] Pulse Rate [ From Monitor] Respiratory 23 18 Rate Respiratory Rate [Anterior Bilateral Throughout] Blood Pressure 111/56 112/54 O2 Sat by Pulse 100 100 100 Oximetry O2 Sat by Pulse Oximetry [ Assessment] 09/29/17 09/29/17 09/29/17 08:31 08:45 08:55 Temperature Pulse Rate 93 H 92 H 94 H Pulse Rate [ Anterior Bilateral Throughout] Pulse Rate [ From Monitor] Respiratory 23 16 Rate Respiratory Rate [Anterior Bilateral Throughout] Blood Pressure 107/56 105/56 105/56 O2 Sat by Pulse 100 100 100 Oximetry O2 Sat by Pulse Oximetry [ Assessment] 09/29/17 09/29/17 09/29/17 08:58 09:00 09:01 Temperature Pulse Rate 93 H 94 H Pulse Rate [ Anterior Bilateral Throughout] Pulse Rate [ From Monitor] Respiratory 28 H 21 Rate Respiratory Rate [Anterior Bilateral Throughout] Blood Pressure 105/56 123/54 O2 Sat by Pulse 100 100 Oximetry O2 Sat by Pulse 100 Oximetry [ Assessment] 09/29/17 09/29/17 09/29/17 09:03 09:10 09:15 Temperature Pulse Rate 95 H Pulse Rate [ 95 H 94 H Anterior Bilateral Throughout] Pulse Rate [ From Monitor] Respiratory 23 Rate Respiratory 26 H 22 Rate [Anterior Bilateral Throughout] Blood Pressure 105/56 O2 Sat by Pulse 100 Oximetry O2 Sat by Pulse Oximetry [ Assessment] 09/29/17 09/29/17 09/29/17 09:31 09:45 10:00 Temperature Pulse Rate 94 H 95 H 100 H Pulse Rate [ Anterior Bilateral Throughout] Pulse Rate [ From Monitor] Respiratory 22 19 Rate Respiratory Rate [Anterior Bilateral Throughout] Blood Pressure 118/51 119/42 O2 Sat by Pulse 99 100 Oximetry O2 Sat by Pulse Oximetry [ Assessment] 09/29/17 09/29/17 09/29/17 10:01 10:15 10:31 Temperature Pulse Rate 97 H 99 H 97 H Pulse Rate [ Anterior Bilateral Throughout] Pulse Rate [ From Monitor] Respiratory 21 24 30 H Rate Respiratory Rate [Anterior Bilateral Throughout] Blood Pressure 108/53 123/54 113/53 O2 Sat by Pulse 100 100 96 Oximetry O2 Sat by Pulse Oximetry [ Assessment] 09/29/17 09/29/17 09/29/17 10:45 11:00 11:01 Temperature Pulse Rate 94 H 98 H 98 H Pulse Rate [ Anterior Bilateral Throughout] Pulse Rate [ From Monitor] Respiratory 32 H 28 H 28 H Rate Respiratory Rate [Anterior Bilateral Throughout] Blood Pressure 99/51 110/53 110/53 O2 Sat by Pulse 97 98 98 Oximetry O2 Sat by Pulse Oximetry [ Assessment] 09/29/17 09/29/17 09/29/17 11:15 11:31 11:45 Temperature Pulse Rate 102 H 101 H 102 H Pulse Rate [ Anterior Bilateral Throughout] Pulse Rate [ From Monitor] Respiratory 27 H 24 23 Rate Respiratory Rate [Anterior Bilateral Throughout] Blood Pressure 116/52 110/51 111/49 O2 Sat by Pulse 100 100 100 Oximetry O2 Sat by Pulse Oximetry [ Assessment] 09/29/17 09/29/17 09/29/17 12:00 12:01 12:15 Temperature 98.3 F Pulse Rate 102 H 98 H Pulse Rate [ Anterior Bilateral Throughout] Pulse Rate [ 100 H From Monitor] Respiratory 24 23 Rate Respiratory Rate [Anterior Bilateral Throughout] Blood Pressure 97/43 93/42 O2 Sat by Pulse 100 100 Oximetry O2 Sat by Pulse Oximetry [ Assessment] 09/29/17 09/29/17 09/29/17 12:31 12:45 13:00 Temperature Pulse Rate 99 H 102 H 105 H Pulse Rate [ Anterior Bilateral Throughout] Pulse Rate [ From Monitor] Respiratory 23 23 22 Rate Respiratory Rate [Anterior Bilateral Throughout] Blood Pressure 110/55 112/51 109/46 O2 Sat by Pulse 100 100 99 Oximetry O2 Sat by Pulse Oximetry [ Assessment] 09/29/17 09/29/17 09/29/17 13:15 13:30 13:45 Temperature Pulse Rate 100 H 96 H 100 H Pulse Rate [ Anterior Bilateral Throughout] Pulse Rate [ From Monitor] Respiratory 20 19 20 Rate Respiratory Rate [Anterior Bilateral Throughout] Blood Pressure 110/49 106/49 105/52 O2 Sat by Pulse 100 99 99 Oximetry O2 Sat by Pulse Oximetry [ Assessment] 09/29/17 09/29/17 09/29/17 14:00 14:15 14:30 Temperature Pulse Rate 96 H 103 H 96 H Pulse Rate [ Anterior Bilateral Throughout] Pulse Rate [ From Monitor] Respiratory 18 25 H 22 Rate Respiratory Rate [Anterior Bilateral Throughout] Blood Pressure 105/48 109/49 106/48 O2 Sat by Pulse 99 99 94 Oximetry O2 Sat by Pulse Oximetry [ Assessment] 09/29/17 09/29/17 09/29/17 14:45 15:00 15:15 Temperature Pulse Rate 96 H 96 H 97 H Pulse Rate [ Anterior Bilateral Throughout] Pulse Rate [ From Monitor] Respiratory 20 21 19 Rate Respiratory Rate [Anterior Bilateral Throughout] Blood Pressure 98/48 107/46 98/44 O2 Sat by Pulse 100 99 99 Oximetry O2 Sat by Pulse Oximetry [ Assessment] 09/29/17 09/29/17 09/29/17 15:30 15:45 16:00 Temperature 97.9 F Pulse Rate 95 H 97 H 94 H Pulse Rate [ Anterior Bilateral Throughout] Pulse Rate [ From Monitor] Respiratory 19 18 20 Rate Respiratory Rate [Anterior Bilateral Throughout] Blood Pressure 100/49 109/50 107/50 O2 Sat by Pulse 100 99 100 Oximetry O2 Sat by Pulse Oximetry [ Assessment] General appearance: Present: no acute distress, obese - EENT Eyes: PERRL, EOM intact ENT: hearing intact - Neck Neck: supple, normal ROM - Respiratory Respiratory effort: normal Respiratory: bilateral: rales (bilateral coarse breath sounds) - Cardiovascular Rhythm: regular Heart Sounds: Present: S1 & S2 Extremity abnormal: edema (2+ all extremity pitting edema) - Gastrointestinal General gastrointestinal: Present: soft, non-tender - Labs CBC & Chem 7: 09/29/17 06:00 09/29/17 06:00 Labs: Abnormal lab results 09/29/17 09/29/17 09/29/17 Range/Units 00:12 06:00 06:00 WBC 28.0 H (4.5-11.0) K/mm3 RBC 2.92 L (3.65-5.03) M/mm3 Hgb 8.7 L (10.1-14.3) gm/dl Hct 26.5 L (30.3-42.9) % RDW 17.1 H (13.2-15.2) % Seg Neuts % (Manual) 74.5 H (40.0-70.0) % Lymphocytes % (Manual) 5.5 L (13.4-35.0) % Monocytes % (Manual) 10.5 H (0.0-7.3) % Seg Neutrophils # Man 20.9 H (1.8-7.7) K/mm3 Monocytes # (Manual) 2.9 H (0.0-0.8) K/mm3 Chloride 97.9 L (98-107) mmol/L BUN 101 H (7-17) mg/dL Creatinine 2.5 H (0.7-1.2) mg/dL Glucose 177 H (65-100) mg/dL POC Glucose 117 H (70-105) Calcium 7.6 L (8.4-10.2) mg/dL 09/29/17 Range/Units 06:27 WBC (4.5-11.0) K/mm3 RBC (3.65-5.03) M/mm3 Hgb (10.1-14.3) gm/dl Hct (30.3-42.9) % RDW (13.2-15.2) % Seg Neuts % (Manual) (40.0-70.0) % Lymphocytes % (Manual) (13.4-35.0) % Monocytes % (Manual) (0.0-7.3) % Seg Neutrophils # Man (1.8-7.7) K/mm3 Monocytes # (Manual) (0.0-0.8) K/mm3 Chloride (98-107) mmol/L BUN (7-17) mg/dL Creatinine (0.7-1.2) mg/dL Glucose (65-100) mg/dL POC Glucose 183 H (70-105) Calcium (8.4-10.2) mg/dL
[2017-09-29] MEDS: LEVOPHED 8 MG in NACL 0.9% 250ML 242 ML IV SCH (18:16)
[2017-09-29] MEDS ORDERED: TPN ADULT 1,800 ML IV SCH (20:00)
[2017-09-30] MEDS: DUONEB *Not for PRN Use IH SCH ×2 (00:14→09:16)
[2017-09-30] MEDS: NOVOLOG SUB-Q SCH ×4 (00:16→21:16)
[2017-09-30 05:45] LABS: Hematocrit 23.9 % (30.3-42.9); Hemoglobin 7.9 gm/dl (10.1-14.3); Mean Corpuscular HGB Conc 33 % (30-34); Mean Corpuscular Hemoglobin 30 pg (28-32); Mean Corpuscular Volume 91 fl (79-97); Platelet Count 231 K/mm3 (140-440); Red Blood Count 2.64 M/mm3 (3.65-5.03); Red Cell Distribution Width 18.1 % (13.2-15.2)
[2017-09-30 06:05] LABS: Calcium 8.2 mg/dL (8.4-10.2); Phosphorous 4.1 mg/dL (2.5-4.5); Potassium 4.2 mmol/L (3.6-5.0)
[2017-09-30] MEDS: DILAUDID IV PRN ×3 (07:43→19:10)
[2017-09-30 08:00] LABS: Basophils % (Manual) 0 % (0.0-1.8); Blastocytes % (Manual) 0 %; Eosinophils % (Manual) 0 % (0.0-4.3)
[2017-09-30 08:01] LABS: Anisocytosis 1+; Hypochromasia 1+; Poikilocytosis Few; Polychromasia Few; Spherocytes Few
[2017-09-30 08:02] LABS: Diff Status Complete; Large Platelets Few; Schistocytes Rare
[2017-09-30] MEDS ORDERED: NACL 0.9% 100 ML IV PRN (08:17)
--- NOTE | 2017-09-30 08:17 | Progress Note ---
Assessment and Plan 1. ESRD: Continue HD on MWF Isolated UF on TTS as tolerated. HD today. Monitor lytes. S/p switched from PD. 2. Anemia: S/p multiple units of PRBC. Patient continues to drop Hb level. Last transfused 3 days ago. Epogen on dialysis days. 3. Hypotension: Remain on Levophed. 4. Volume overload: UF as tolerated. 5. Acute respiratory failure: On the vent. 6. Sepsis. 7. Gastric perforation and SBO: S/p ex lap, repair of enterotomy. Colonic perforation: S/p ex lap, transverse colon resection, colostomy creation. Abdominal Wound leak: S/p ex lap, abdominal wash out and abdominal wall closure. Subjective Date of service: 09/30/17 Principal diagnosis: respiratory failure, sepsis, shock rectal bleeding Interval history: Patient was seen and examined at the bedside. Remain on the vent. Objective - Vital Signs Vital signs: Vital Signs - 12hr 09/29/17 09/29/17 09/29/17 20:30 20:45 21:00 Temperature Pulse Rate 99 H 99 H 98 H Pulse Rate [ Anterior Bilateral Throughout] Pulse Rate [ Apical] Pulse Rate [ From Monitor] Pulse Rate [ Left Dorsalis Pedis] Pulse Rate [ Left Radial] Pulse Rate [ Right Dorsalis Pedis] Pulse Rate [ Right Radial] Respiratory 21 20 20 Rate Respiratory Rate [Anterior Bilateral Throughout] Respiratory 20 Rate [ Generalized] Blood Pressure 102/51 113/53 102/52 O2 Sat by Pulse 99 Oximetry O2 Sat by Pulse Oximetry [ Assessment] 09/29/17 09/29/17 09/29/17 21:10 21:15 21:30 Temperature Pulse Rate 98 H 98 H Pulse Rate [ Anterior Bilateral Throughout] Pulse Rate [ Apical] Pulse Rate [ From Monitor] Pulse Rate [ Left Dorsalis Pedis] Pulse Rate [ Left Radial] Pulse Rate [ Right Dorsalis Pedis] Pulse Rate [ Right Radial] Respiratory 21 20 Rate Respiratory Rate [Anterior Bilateral Throughout] Respiratory 20 Rate [ Generalized] Blood Pressure 105/50 102/50 O2 Sat by Pulse 100 100 Oximetry O2 Sat by Pulse Oximetry [ Assessment] 09/29/17 09/29/17 09/29/17 21:45 22:00 22:15 Temperature Pulse Rate 103 H 101 H 104 H Pulse Rate [ Anterior Bilateral Throughout] Pulse Rate [ Apical] Pulse Rate [ From Monitor] Pulse Rate [ Left Dorsalis Pedis] Pulse Rate [ Left Radial] Pulse Rate [ Right Dorsalis Pedis] Pulse Rate [ Right Radial] Respiratory 21 19 21 Rate Respiratory Rate [Anterior Bilateral Throughout] Respiratory Rate [ Generalized] Blood Pressure 111/53 108/51 109/49 O2 Sat by Pulse 100 100 99 Oximetry O2 Sat by Pulse Oximetry [ Assessment] 09/29/17 09/29/17 09/29/17 22:30 22:45 22:55 Temperature Pulse Rate 100 H 99 H 101 H Pulse Rate [ Anterior Bilateral Throughout] Pulse Rate [ Apical] Pulse Rate [ From Monitor] Pulse Rate [ Left Dorsalis Pedis] Pulse Rate [ Left Radial] Pulse Rate [ Right Dorsalis Pedis] Pulse Rate [ Right Radial] Respiratory 19 19 20 Rate Respiratory Rate [Anterior Bilateral Throughout] Respiratory Rate [ Generalized] Blood Pressure 106/50 120/56 120/56 O2 Sat by Pulse 100 100 100 Oximetry O2 Sat by Pulse Oximetry [ Assessment] 09/29/17 09/29/17 09/29/17 23:00 23:11 23:21 Temperature Pulse Rate 99 H 99 H 102 H Pulse Rate [ Anterior Bilateral Throughout] Pulse Rate [ Apical] Pulse Rate [ From Monitor] Pulse Rate [ Left Dorsalis Pedis] Pulse Rate [ Left Radial] Pulse Rate [ Right Dorsalis Pedis] Pulse Rate [ Right Radial] Respiratory 21 19 21 Rate Respiratory Rate [Anterior Bilateral Throughout] Respiratory Rate [ Generalized] Blood Pressure 105/50 105/50 104/47 O2 Sat by Pulse 99 100 100 Oximetry O2 Sat by Pulse Oximetry [ Assessment] 09/29/17 09/29/17 09/29/17 23:30 23:41 23:51 Temperature Pulse Rate 105 H 101 H 102 H Pulse Rate [ Anterior Bilateral Throughout] Pulse Rate [ Apical] Pulse Rate [ From Monitor] Pulse Rate [ Left Dorsalis Pedis] Pulse Rate [ Left Radial] Pulse Rate [ Right Dorsalis Pedis] Pulse Rate [ Right Radial] Respiratory 24 20 20 Rate Respiratory Rate [Anterior Bilateral Throughout] Respiratory Rate [ Generalized] Blood Pressure 102/51 102/51 123/53 O2 Sat by Pulse 99 100 99 Oximetry O2 Sat by Pulse Oximetry [ Assessment] 09/30/17 09/30/17 09/30/17 00:00 00:11 00:16 Temperature 99.7 F H Pulse Rate 103 H 104 H 100 H Pulse Rate [ 101 H Anterior Bilateral Throughout] Pulse Rate [ 84 Apical] Pulse Rate [ 84 From Monitor] Pulse Rate [ 84 Left Dorsalis Pedis] Pulse Rate [ 84 Left Radial] Pulse Rate [ 84 Right Dorsalis Pedis] Pulse Rate [ 84 Right Radial] Respiratory 21 21 19 Rate Respiratory 20 Rate [Anterior Bilateral Throughout] Respiratory Rate [ Generalized] Blood Pressure 109/52 104/47 108/49 O2 Sat by Pulse 98 99 100 Oximetry O2 Sat by Pulse 100 Oximetry [ Assessment] 09/30/17 09/30/17 09/30/17 00:21 00:25 00:30 Temperature 99.3 F Pulse Rate 106 H 106 H Pulse Rate [ Anterior Bilateral Throughout] Pulse Rate [ Apical] Pulse Rate [ From Monitor] Pulse Rate [ Left Dorsalis Pedis] Pulse Rate [ Left Radial] Pulse Rate [ Right Dorsalis Pedis] Pulse Rate [ Right Radial] Respiratory 17 17 Rate Respiratory Rate [Anterior Bilateral Throughout] Respiratory Rate [ Generalized] Blood Pressure 108/49 106/49 O2 Sat by Pulse 100 100 Oximetry O2 Sat by Pulse Oximetry [ Assessment] 09/30/17 09/30/17 09/30/17 00:45 01:00 01:15 Temperature Pulse Rate 107 H 106 H 102 H Pulse Rate [ Anterior Bilateral Throughout] Pulse Rate [ Apical] Pulse Rate [ From Monitor] Pulse Rate [ Left Dorsalis Pedis] Pulse Rate [ Left Radial] Pulse Rate [ Right Dorsalis Pedis] Pulse Rate [ Right Radial] Respiratory 21 21 20 Rate Respiratory Rate [Anterior Bilateral Throughout] Respiratory Rate [ Generalized] Blood Pressure 112/51 109/49 101/47 O2 Sat by Pulse 98 98 97 Oximetry O2 Sat by Pulse Oximetry [ Assessment] 09/30/17 09/30/17 09/30/17 01:30 01:33 01:45 Temperature 99.3 F Pulse Rate 105 H 81 107 H Pulse Rate [ Anterior Bilateral Throughout] Pulse Rate [ Apical] Pulse Rate [ From Monitor] Pulse Rate [ Left Dorsalis Pedis] Pulse Rate [ Left Radial] Pulse Rate [ Right Dorsalis Pedis] Pulse Rate [ Right Radial] Respiratory 21 22 20 Rate Respiratory Rate [Anterior Bilateral Throughout] Respiratory Rate [ Generalized] Blood Pressure 107/48 103/66 109/48 O2 Sat by Pulse 97 Oximetry O2 Sat by Pulse Oximetry [ Assessment] 09/30/17 09/30/17 09/30/17 02:00 02:15 02:30 Temperature Pulse Rate 105 H 107 H 104 H Pulse Rate [ Anterior Bilateral Throughout] Pulse Rate [ Apical] Pulse Rate [ From Monitor] Pulse Rate [ Left Dorsalis Pedis] Pulse Rate [ Left Radial] Pulse Rate [ Right Dorsalis Pedis] Pulse Rate [ Right Radial] Respiratory 19 21 21 Rate Respiratory Rate [Anterior Bilateral Throughout] Respiratory Rate [ Generalized] Blood Pressure 106/45 109/45 101/45 O2 Sat by Pulse 98 97 97 Oximetry O2 Sat by Pulse Oximetry [ Assessment] 09/30/17 09/30/17 09/30/17 02:45 03:00 03:15 Temperature Pulse Rate 109 H 108 H 111 H Pulse Rate [ Anterior Bilateral Throughout] Pulse Rate [ Apical] Pulse Rate [ From Monitor] Pulse Rate [ Left Dorsalis Pedis] Pulse Rate [ Left Radial] Pulse Rate [ Right Dorsalis Pedis] Pulse Rate [ Right Radial] Respiratory 24 21 26 H Rate Respiratory Rate [Anterior Bilateral Throughout] Respiratory Rate [ Generalized] Blood Pressure 109/47 110/49 103/62 O2 Sat by Pulse 97 99 99 Oximetry O2 Sat by Pulse Oximetry [ Assessment] 09/30/17 09/30/17 09/30/17 03:31 03:45 04:00 Temperature 99.0 F Pulse Rate 105 H 104 H 105 H Pulse Rate [ Anterior Bilateral Throughout] Pulse Rate [ 112 H Apical] Pulse Rate [ 112 H From Monitor] Pulse Rate [ 112 H Left Dorsalis Pedis] Pulse Rate [ 112 H Left Radial] Pulse Rate [ 112 H Right Dorsalis Pedis] Pulse Rate [ 112 H Right Radial] Respiratory 20 23 22 Rate Respiratory Rate [Anterior Bilateral Throughout] Respiratory Rate [ Generalized] Blood Pressure 113/45 115/55 113/53 O2 Sat by Pulse 100 98 99 Oximetry O2 Sat by Pulse Oximetry [ Assessment] 09/30/17 09/30/17 09/30/17 04:15 04:30 04:45 Temperature Pulse Rate 108 H 104 H 109 H Pulse Rate [ Anterior Bilateral Throughout] Pulse Rate [ Apical] Pulse Rate [ From Monitor] Pulse Rate [ Left Dorsalis Pedis] Pulse Rate [ Left Radial] Pulse Rate [ Right Dorsalis Pedis] Pulse Rate [ Right Radial] Respiratory 22 21 23 Rate Respiratory Rate [Anterior Bilateral Throughout] Respiratory Rate [ Generalized] Blood Pressure 116/54 113/55 117/55 O2 Sat by Pulse 98 99 98 Oximetry O2 Sat by Pulse Oximetry [ Assessment] 09/30/17 09/30/17 09/30/17 05:00 05:09 05:15 Temperature Pulse Rate 108 H 100 H 105 H Pulse Rate [ Anterior Bilateral Throughout] Pulse Rate [ Apical] Pulse Rate [ From Monitor] Pulse Rate [ Left Dorsalis Pedis] Pulse Rate [ Left Radial] Pulse Rate [ Right Dorsalis Pedis] Pulse Rate [ Right Radial] Respiratory 22 20 21 Rate Respiratory Rate [Anterior Bilateral Throughout] Respiratory Rate [ Generalized] Blood Pressure 120/55 120/55 119/54 O2 Sat by Pulse 99 100 99 Oximetry O2 Sat by Pulse Oximetry [ Assessment] 09/30/17 09/30/17 09/30/17 05:30 05:45 06:00 Temperature Pulse Rate 108 H 105 H 107 H Pulse Rate [ Anterior Bilateral Throughout] Pulse Rate [ Apical] Pulse Rate [ From Monitor] Pulse Rate [ Left Dorsalis Pedis] Pulse Rate [ Left Radial] Pulse Rate [ Right Dorsalis Pedis] Pulse Rate [ Right Radial] Respiratory 24 20 20 Rate Respiratory Rate [Anterior Bilateral Throughout] Respiratory Rate [ Generalized] Blood Pressure 116/53 119/51 119/55 O2 Sat by Pulse 99 99 99 Oximetry O2 Sat by Pulse Oximetry [ Assessment] 09/30/17 09/30/17 09/30/17 06:15 06:30 06:45 Temperature Pulse Rate 109 H 108 H 109 H Pulse Rate [ Anterior Bilateral Throughout] Pulse Rate [ Apical] Pulse Rate [ From Monitor] Pulse Rate [ Left Dorsalis Pedis] Pulse Rate [ Left Radial] Pulse Rate [ Right Dorsalis Pedis] Pulse Rate [ Right Radial] Respiratory 22 21 22 Rate Respiratory Rate [Anterior Bilateral Throughout] Respiratory Rate [ Generalized] Blood Pressure 122/59 122/53 120/57 O2 Sat by Pulse 99 98 99 Oximetry O2 Sat by Pulse Oximetry [ Assessment] 09/30/17 09/30/17 09/30/17 07:00 07:15 07:30 Temperature Pulse Rate 110 H 109 H 111 H Pulse Rate [ Anterior Bilateral Throughout] Pulse Rate [ Apical] Pulse Rate [ From Monitor] Pulse Rate [ Left Dorsalis Pedis] Pulse Rate [ Left Radial] Pulse Rate [ Right Dorsalis Pedis] Pulse Rate [ Right Radial] Respiratory 22 20 24 Rate Respiratory Rate [Anterior Bilateral Throughout] Respiratory Rate [ Generalized] Blood Pressure 128/55 120/58 119/57 O2 Sat by Pulse 98 98 98 Oximetry O2 Sat by Pulse Oximetry [ Assessment] 09/30/17 09/30/17 07:45 08:00 Temperature Pulse Rate 114 H 108 H Pulse Rate [ Anterior Bilateral Throughout] Pulse Rate [ Apical] Pulse Rate [ From Monitor] Pulse Rate [ Left Dorsalis Pedis] Pulse Rate [ Left Radial] Pulse Rate [ Right Dorsalis Pedis] Pulse Rate [ Right Radial] Respiratory 26 H 19 Rate Respiratory Rate [Anterior Bilateral Throughout] Respiratory Rate [ Generalized] Blood Pressure 124/63 121/56 O2 Sat by Pulse 99 99 Oximetry O2 Sat by Pulse Oximetry [ Assessment] - General Appearance General appearance: well-developed, appears stated age, obese, other (on the vent, FIO2 25%, right IJ temp catheter) EENT: ATNC, PERRL Neck: other (trached) Respiratory: Present: Clear to Ascultation Cardiology: regular, S1S2, no murmurs Gastrointestinal: normoactive bowel sounds, other (ostomy, MERVIN drain and G tube noted) Integumentary: no rash Neurologic: other (alert, grimaces) Musculoskeletal: other (2+ edema of both LEs noted) - Lab 09/30/17 05:20 09/30/17 05:20 Most recent lab results ABG pH 7.323 pH Units (7.350-7.450) L 09/09/17 Unknown ABG pCO2 41.1 mm Hg 09/09/17 Unknown ABG pO2 94.1 mm Hg (80.0-90.0) H 09/09/17 Unknown ABG HCO3 20.9 mmol/L (20.0-26.0) 09/09/17 Unknown ABG O2 Saturation 97.2 % (95.0-99.0) 09/09/17 Unknown Calcium 8.2 mg/dL (8.4-10.2) L 09/30/17 05:20 Phosphorus 4.10 mg/dL (2.5-4.5) 09/30/17 05:20 Magnesium 2.00 mg/dL (1.7-2.3) 09/30/17 05:20
--- NOTE | 2017-09-30 08:55 | Progress Note ---
Assessment and Plan 62 y.o. F s/p ex lap, repair of enterotomy, then s/p ex lap, transverse colon resection, colostomy creation, and s/p ex lap, abdominal wash out and abdominal wall closure after wound dehiscence 3 weeks s/p ex lap for gastric perforation and sbo. complicated patient with hx of several abdominal procedures this admission, starting with surgery for SBO and gastric perforation. Most recently, s/p exlap and repair of enterotomy and midline closure with biologic mesh due to dehiscence tachycardia improving but still requiring pressor support leukocytosis- likley from peritonitis now improving after source controlled. abx per ID continues to improve Nurtrition: TPN for nutritional support. trickle feeds via g tube started. monitor residuals. Continue at 10cc today due to residuals overnight. wound care: -Will discuss possible use of wound vac with wound care nurse. - discussed with wound care today. Pt would benefit from a wound vac. We discussed the concern for the mesh directly under the possible weak fascia. She will evaluate the wound again with another wound care nurse this afternoon after the pt is done with HD. -santyl to border of wound at site of fat necrosis. -Monitor ostomy site - Renal : HD per renal DVT proph: scds GI: PPI. - Patient Problems (1) Peritonitis (acute) generalized Current Visit: Yes Status: Acute Subjective Narrative: Pt seen at bedside. No acute overnight events. Levo at 8. pt awake but does not follow commands. G tube feeds started yesterday at 10cc/hr. Residuals were checked every 4 hrs. The greatest residual overnight was 50cc, then 20cc. Outputs: YAMINI: upper: 50cc serosang Yamini lower: 240cc serous with debris Objective Vital Signs - 12hr 09/29/17 09/29/17 09/29/17 21:00 21:10 21:15 Temperature Pulse Rate 98 H 98 H Pulse Rate [ Anterior Bilateral Throughout] Pulse Rate [ Apical] Pulse Rate [ From Monitor] Pulse Rate [ Left Dorsalis Pedis] Pulse Rate [ Left Radial] Pulse Rate [ Right Dorsalis Pedis] Pulse Rate [ Right Radial] Respiratory 20 21 Rate Respiratory Rate [Anterior Bilateral Throughout] Respiratory 20 20 Rate [ Generalized] Blood Pressure 102/52 105/50 O2 Sat by Pulse 99 100 Oximetry O2 Sat by Pulse Oximetry [ Assessment] 09/29/17 09/29/17 09/29/17 21:30 21:45 22:00 Temperature Pulse Rate 98 H 103 H 101 H Pulse Rate [ Anterior Bilateral Throughout] Pulse Rate [ Apical] Pulse Rate [ From Monitor] Pulse Rate [ Left Dorsalis Pedis] Pulse Rate [ Left Radial] Pulse Rate [ Right Dorsalis Pedis] Pulse Rate [ Right Radial] Respiratory 20 21 19 Rate Respiratory Rate [Anterior Bilateral Throughout] Respiratory Rate [ Generalized] Blood Pressure 102/50 111/53 108/51 O2 Sat by Pulse 100 100 100 Oximetry O2 Sat by Pulse Oximetry [ Assessment] 09/29/17 09/29/17 09/29/17 22:15 22:30 22:45 Temperature Pulse Rate 104 H 100 H 99 H Pulse Rate [ Anterior Bilateral Throughout] Pulse Rate [ Apical] Pulse Rate [ From Monitor] Pulse Rate [ Left Dorsalis Pedis] Pulse Rate [ Left Radial] Pulse Rate [ Right Dorsalis Pedis] Pulse Rate [ Right Radial] Respiratory 21 19 19 Rate Respiratory Rate [Anterior Bilateral Throughout] Respiratory Rate [ Generalized] Blood Pressure 109/49 106/50 120/56 O2 Sat by Pulse 99 100 100 Oximetry O2 Sat by Pulse Oximetry [ Assessment] 09/29/17 09/29/17 09/29/17 22:55 23:00 23:11 Temperature Pulse Rate 101 H 99 H 99 H Pulse Rate [ Anterior Bilateral Throughout] Pulse Rate [ Apical] Pulse Rate [ From Monitor] Pulse Rate [ Left Dorsalis Pedis] Pulse Rate [ Left Radial] Pulse Rate [ Right Dorsalis Pedis] Pulse Rate [ Right Radial] Respiratory 20 21 19 Rate Respiratory Rate [Anterior Bilateral Throughout] Respiratory Rate [ Generalized] Blood Pressure 120/56 105/50 105/50 O2 Sat by Pulse 100 99 100 Oximetry O2 Sat by Pulse Oximetry [ Assessment] 09/29/17 09/29/17 09/29/17 23:21 23:30 23:41 Temperature Pulse Rate 102 H 105 H 101 H Pulse Rate [ Anterior Bilateral Throughout] Pulse Rate [ Apical] Pulse Rate [ From Monitor] Pulse Rate [ Left Dorsalis Pedis] Pulse Rate [ Left Radial] Pulse Rate [ Right Dorsalis Pedis] Pulse Rate [ Right Radial] Respiratory 21 24 20 Rate Respiratory Rate [Anterior Bilateral Throughout] Respiratory Rate [ Generalized] Blood Pressure 104/47 102/51 102/51 O2 Sat by Pulse 100 99 100 Oximetry O2 Sat by Pulse Oximetry [ Assessment] 09/29/17 09/30/17 09/30/17 23:51 00:00 00:11 Temperature 99.7 F H Pulse Rate 102 H 103 H 104 H Pulse Rate [ 101 H Anterior Bilateral Throughout] Pulse Rate [ 84 Apical] Pulse Rate [ 84 From Monitor] Pulse Rate [ 84 Left Dorsalis Pedis] Pulse Rate [ 84 Left Radial] Pulse Rate [ 84 Right Dorsalis Pedis] Pulse Rate [ 84 Right Radial] Respiratory 20 21 21 Rate Respiratory 20 Rate [Anterior Bilateral Throughout] Respiratory Rate [ Generalized] Blood Pressure 123/53 109/52 104/47 O2 Sat by Pulse 99 98 99 Oximetry O2 Sat by Pulse 100 Oximetry [ Assessment] 09/30/17 09/30/17 09/30/17 00:16 00:21 00:25 Temperature 99.3 F Pulse Rate 100 H 106 H Pulse Rate [ Anterior Bilateral Throughout] Pulse Rate [ Apical] Pulse Rate [ From Monitor] Pulse Rate [ Left Dorsalis Pedis] Pulse Rate [ Left Radial] Pulse Rate [ Right Dorsalis Pedis] Pulse Rate [ Right Radial] Respiratory 19 17 Rate Respiratory Rate [Anterior Bilateral Throughout] Respiratory Rate [ Generalized] Blood Pressure 108/49 108/49 O2 Sat by Pulse 100 100 Oximetry O2 Sat by Pulse Oximetry [ Assessment] 09/30/17 09/30/17 09/30/17 00:30 00:45 01:00 Temperature Pulse Rate 106 H 107 H 106 H Pulse Rate [ Anterior Bilateral Throughout] Pulse Rate [ Apical] Pulse Rate [ From Monitor] Pulse Rate [ Left Dorsalis Pedis] Pulse Rate [ Left Radial] Pulse Rate [ Right Dorsalis Pedis] Pulse Rate [ Right Radial] Respiratory 17 21 21 Rate Respiratory Rate [Anterior Bilateral Throughout] Respiratory Rate [ Generalized] Blood Pressure 106/49 112/51 109/49 O2 Sat by Pulse 100 98 98 Oximetry O2 Sat by Pulse Oximetry [ Assessment] 09/30/17 09/30/17 09/30/17 01:15 01:30 01:33 Temperature 99.3 F Pulse Rate 102 H 105 H 81 Pulse Rate [ Anterior Bilateral Throughout] Pulse Rate [ Apical] Pulse Rate [ From Monitor] Pulse Rate [ Left Dorsalis Pedis] Pulse Rate [ Left Radial] Pulse Rate [ Right Dorsalis Pedis] Pulse Rate [ Right Radial] Respiratory 20 21 22 Rate Respiratory Rate [Anterior Bilateral Throughout] Respiratory Rate [ Generalized] Blood Pressure 101/47 107/48 103/66 O2 Sat by Pulse 97 Oximetry O2 Sat by Pulse Oximetry [ Assessment] 09/30/17 09/30/17 09/30/17 01:45 02:00 02:15 Temperature Pulse Rate 107 H 105 H 107 H Pulse Rate [ Anterior Bilateral Throughout] Pulse Rate [ Apical] Pulse Rate [ From Monitor] Pulse Rate [ Left Dorsalis Pedis] Pulse Rate [ Left Radial] Pulse Rate [ Right Dorsalis Pedis] Pulse Rate [ Right Radial] Respiratory 20 19 21 Rate Respiratory Rate [Anterior Bilateral Throughout] Respiratory Rate [ Generalized] Blood Pressure 109/48 106/45 109/45 O2 Sat by Pulse 97 98 97 Oximetry O2 Sat by Pulse Oximetry [ Assessment] 09/30/17 09/30/17 09/30/17 02:30 02:45 03:00 Temperature Pulse Rate 104 H 109 H 108 H Pulse Rate [ Anterior Bilateral Throughout] Pulse Rate [ Apical] Pulse Rate [ From Monitor] Pulse Rate [ Left Dorsalis Pedis] Pulse Rate [ Left Radial] Pulse Rate [ Right Dorsalis Pedis] Pulse Rate [ Right Radial] Respiratory 21 24 21 Rate Respiratory Rate [Anterior Bilateral Throughout] Respiratory Rate [ Generalized] Blood Pressure 101/45 109/47 110/49 O2 Sat by Pulse 97 97 99 Oximetry O2 Sat by Pulse Oximetry [ Assessment] 09/30/17 09/30/17 09/30/17 03:15 03:31 03:45 Temperature Pulse Rate 111 H 105 H 104 H Pulse Rate [ Anterior Bilateral Throughout] Pulse Rate [ Apical] Pulse Rate [ From Monitor] Pulse Rate [ Left Dorsalis Pedis] Pulse Rate [ Left Radial] Pulse Rate [ Right Dorsalis Pedis] Pulse Rate [ Right Radial] Respiratory 26 H 20 23 Rate Respiratory Rate [Anterior Bilateral Throughout] Respiratory Rate [ Generalized] Blood Pressure 103/62 113/45 115/55 O2 Sat by Pulse 99 100 98 Oximetry O2 Sat by Pulse Oximetry [ Assessment] 09/30/17 09/30/17 09/30/17 04:00 04:15 04:30 Temperature 99.0 F Pulse Rate 105 H 108 H 104 H Pulse Rate [ Anterior Bilateral Throughout] Pulse Rate [ 112 H Apical] Pulse Rate [ 112 H From Monitor] Pulse Rate [ 112 H Left Dorsalis Pedis] Pulse Rate [ 112 H Left Radial] Pulse Rate [ 112 H Right Dorsalis Pedis] Pulse Rate [ 112 H Right Radial] Respiratory 22 22 21 Rate Respiratory Rate [Anterior Bilateral Throughout] Respiratory Rate [ Generalized] Blood Pressure 113/53 116/54 113/55 O2 Sat by Pulse 99 98 99 Oximetry O2 Sat by Pulse Oximetry [ Assessment] 09/30/17 09/30/17 09/30/17 04:45 05:00 05:09 Temperature Pulse Rate 109 H 108 H 100 H Pulse Rate [ Anterior Bilateral Throughout] Pulse Rate [ Apical] Pulse Rate [ From Monitor] Pulse Rate [ Left Dorsalis Pedis] Pulse Rate [ Left Radial] Pulse Rate [ Right Dorsalis Pedis] Pulse Rate [ Right Radial] Respiratory 23 22 20 Rate Respiratory Rate [Anterior Bilateral Throughout] Respiratory Rate [ Generalized] Blood Pressure 117/55 120/55 120/55 O2 Sat by Pulse 98 99 100 Oximetry O2 Sat by Pulse Oximetry [ Assessment] 09/30/17 09/30/17 09/30/17 05:15 05:30 05:45 Temperature Pulse Rate 105 H 108 H 105 H Pulse Rate [ Anterior Bilateral Throughout] Pulse Rate [ Apical] Pulse Rate [ From Monitor] Pulse Rate [ Left Dorsalis Pedis] Pulse Rate [ Left Radial] Pulse Rate [ Right Dorsalis Pedis] Pulse Rate [ Right Radial] Respiratory 21 24 20 Rate Respiratory Rate [Anterior Bilateral Throughout] Respiratory Rate [ Generalized] Blood Pressure 119/54 116/53 119/51 O2 Sat by Pulse 99 99 99 Oximetry O2 Sat by Pulse Oximetry [ Assessment] 09/30/17 09/30/17 09/30/17 06:00 06:15 06:30 Temperature Pulse Rate 107 H 109 H 108 H Pulse Rate [ Anterior Bilateral Throughout] Pulse Rate [ Apical] Pulse Rate [ From Monitor] Pulse Rate [ Left Dorsalis Pedis] Pulse Rate [ Left Radial] Pulse Rate [ Right Dorsalis Pedis] Pulse Rate [ Right Radial] Respiratory 20 22 21 Rate Respiratory Rate [Anterior Bilateral Throughout] Respiratory Rate [ Generalized] Blood Pressure 119/55 122/59 122/53 O2 Sat by Pulse 99 99 98 Oximetry O2 Sat by Pulse Oximetry [ Assessment] 09/30/17 09/30/17 09/30/17 06:45 07:00 07:15 Temperature Pulse Rate 109 H 110 H 109 H Pulse Rate [ Anterior Bilateral Throughout] Pulse Rate [ Apical] Pulse Rate [ From Monitor] Pulse Rate [ Left Dorsalis Pedis] Pulse Rate [ Left Radial] Pulse Rate [ Right Dorsalis Pedis] Pulse Rate [ Right Radial] Respiratory 22 22 20 Rate Respiratory Rate [Anterior Bilateral Throughout] Respiratory Rate [ Generalized] Blood Pressure 120/57 128/55 120/58 O2 Sat by Pulse 99 98 98 Oximetry O2 Sat by Pulse Oximetry [ Assessment] 09/30/17 09/30/17 09/30/17 07:30 07:45 08:00 Temperature Pulse Rate 111 H 114 H 108 H Pulse Rate [ Anterior Bilateral Throughout] Pulse Rate [ Apical] Pulse Rate [ From Monitor] Pulse Rate [ Left Dorsalis Pedis] Pulse Rate [ Left Radial] Pulse Rate [ Right Dorsalis Pedis] Pulse Rate [ Right Radial] Respiratory 24 26 H 19 Rate Respiratory Rate [Anterior Bilateral Throughout] Respiratory Rate [ Generalized] Blood Pressure 119/57 124/63 121/56 O2 Sat by Pulse 98 99 99 Oximetry O2 Sat by Pulse Oximetry [ Assessment] - General physical appearance chronically ill, obese - Neck other (trach in place. on vent ) - Respiratory normal expansion, normal respiratory effort - Abdomen soft, other (other (other (soft, obese, midline dressing removed. retention sutures in place. serosang discharge in midline. irrigated with ns, santyl placed on necrotic fat areas, then calcium alginate placed in midline. Fat necorsis along borders of wound. fasica intact. YAMINI x [address] G tube: surrounding skin farhad down- cleaned and calcium aglinate placed around to collection secretions. upper yamini and G tube bolstered to prevent pulling. Ostomy : stoma patent, liquid brown stool in bag. minimal air. no leaking at ostomy site.) - Integumentary no rash, no growths - Neurologic confused - Labs 09/30/17 05:20 09/30/17 05:20 Diabetes panel 09/30/17 Range/Units 05:20 Sodium 139 (137-145) mmol/L Potassium 4.2 (3.6-5.0) mmol/L Chloride 97.0 L (98-107) mmol/L Carbon Dioxide 20 L (22-30) mmol/L BUN 120 H (7-17) mg/dL Creatinine 2.9 H (0.7-1.2) mg/dL Glucose 126 H (65-100) mg/dL Calcium 8.2 L (8.4-10.2) mg/dL Calcium panel 09/30/17 Range/Units 05:20 Calcium 8.2 L (8.4-10.2) mg/dL Phosphorus 4.10 (2.5-4.5) mg/dL Pituitary panel 09/30/17 Range/Units 05:20 Sodium 139 (137-145) mmol/L Potassium 4.2 (3.6-5.0) mmol/L Chloride 97.0 L (98-107) mmol/L Carbon Dioxide 20 L (22-30) mmol/L BUN 120 H (7-17) mg/dL Creatinine 2.9 H (0.7-1.2) mg/dL Glucose 126 H (65-100) mg/dL Calcium 8.2 L (8.4-10.2) mg/dL Adrenal panel 09/30/17 Range/Units 05:20 Sodium 139 (137-145) mmol/L Potassium 4.2 (3.6-5.0) mmol/L Chloride 97.0 L (98-107) mmol/L Carbon Dioxide 20 L (22-30) mmol/L BUN 120 H (7-17) mg/dL Creatinine 2.9 H (0.7-1.2) mg/dL Glucose 126 H (65-100) mg/dL Calcium 8.2 L (8.4-10.2) mg/dL
--- NOTE | 2017-09-30 09:44 | Progress Note ---
Assessment and Plan 62 y/o female originally admitted with hypotension, now back to ICU secondary to worsening hypotension, concern for sepsis, with acute respiratory failure post-op from ex-lap for abdominal distention and possible ileus, now back from OR after worsening respiratory failure, requiring re-intubation and wash out of abdomen 1. Wean pressors for MAPs >60 2. HD per renal, has been having at least 6x weekly. 3. Daily PSV trials with hopes of doing 24 hour PSV trial 4. Steroids have been discontinued, please attempt to not restart these as surgery feels it is impedeing the healing of the abdominal wound 5. Started tube feeds yesterday at 10, but already having residuals, will continue to monitor. 6. Once medical issues have concrete plan, should be ready for transfer to [facility] Overall prognosis is guarded to poor CCT 31 Subjective Date of service: 09/30/17 Principal diagnosis: respiratory failure, sepsis, shock rectal bleeding Interval history: No acute events. Still on levophed. Currently undergoing HD. No family at bedside. On PSV Objective Vital Signs - 12hr 09/29/17 09/29/17 09/29/17 21:45 22:00 22:15 Temperature Pulse Rate 103 H 101 H 104 H Pulse Rate [ Anterior Bilateral Throughout] Pulse Rate [ Apical] Pulse Rate [ From Monitor] Pulse Rate [ Left Dorsalis Pedis] Pulse Rate [ Left Radial] Pulse Rate [ Right Dorsalis Pedis] Pulse Rate [ Right Radial] Respiratory 21 19 21 Rate Respiratory Rate [Anterior Bilateral Throughout] Blood Pressure 111/53 108/51 109/49 O2 Sat by Pulse 100 100 99 Oximetry O2 Sat by Pulse Oximetry [ Assessment] 09/29/17 09/29/17 09/29/17 22:30 22:45 22:55 Temperature Pulse Rate 100 H 99 H 101 H Pulse Rate [ Anterior Bilateral Throughout] Pulse Rate [ Apical] Pulse Rate [ From Monitor] Pulse Rate [ Left Dorsalis Pedis] Pulse Rate [ Left Radial] Pulse Rate [ Right Dorsalis Pedis] Pulse Rate [ Right Radial] Respiratory 19 19 20 Rate Respiratory Rate [Anterior Bilateral Throughout] Blood Pressure 106/50 120/56 120/56 O2 Sat by Pulse 100 100 100 Oximetry O2 Sat by Pulse Oximetry [ Assessment] 09/29/17 09/29/17 09/29/17 23:00 23:11 23:21 Temperature Pulse Rate 99 H 99 H 102 H Pulse Rate [ Anterior Bilateral Throughout] Pulse Rate [ Apical] Pulse Rate [ From Monitor] Pulse Rate [ Left Dorsalis Pedis] Pulse Rate [ Left Radial] Pulse Rate [ Right Dorsalis Pedis] Pulse Rate [ Right Radial] Respiratory 21 19 21 Rate Respiratory Rate [Anterior Bilateral Throughout] Blood Pressure 105/50 105/50 104/47 O2 Sat by Pulse 99 100 100 Oximetry O2 Sat by Pulse Oximetry [ Assessment] 09/29/17 09/29/17 09/29/17 23:30 23:41 23:51 Temperature Pulse Rate 105 H 101 H 102 H Pulse Rate [ Anterior Bilateral Throughout] Pulse Rate [ Apical] Pulse Rate [ From Monitor] Pulse Rate [ Left Dorsalis Pedis] Pulse Rate [ Left Radial] Pulse Rate [ Right Dorsalis Pedis] Pulse Rate [ Right Radial] Respiratory 24 20 20 Rate Respiratory Rate [Anterior Bilateral Throughout] Blood Pressure 102/51 102/51 123/53 O2 Sat by Pulse 99 100 99 Oximetry O2 Sat by Pulse Oximetry [ Assessment] 09/30/17 09/30/17 09/30/17 00:00 00:11 00:16 Temperature 99.7 F H Pulse Rate 103 H 104 H 100 H Pulse Rate [ 101 H Anterior Bilateral Throughout] Pulse Rate [ 84 Apical] Pulse Rate [ 84 From Monitor] Pulse Rate [ 84 Left Dorsalis Pedis] Pulse Rate [ 84 Left Radial] Pulse Rate [ 84 Right Dorsalis Pedis] Pulse Rate [ 84 Right Radial] Respiratory 21 21 19 Rate Respiratory 20 Rate [Anterior Bilateral Throughout] Blood Pressure 109/52 104/47 108/49 O2 Sat by Pulse 98 99 100 Oximetry O2 Sat by Pulse 100 Oximetry [ Assessment] 09/30/17 09/30/17 09/30/17 00:21 00:25 00:30 Temperature 99.3 F Pulse Rate 106 H 106 H Pulse Rate [ Anterior Bilateral Throughout] Pulse Rate [ Apical] Pulse Rate [ From Monitor] Pulse Rate [ Left Dorsalis Pedis] Pulse Rate [ Left Radial] Pulse Rate [ Right Dorsalis Pedis] Pulse Rate [ Right Radial] Respiratory 17 17 Rate Respiratory Rate [Anterior Bilateral Throughout] Blood Pressure 108/49 106/49 O2 Sat by Pulse 100 100 Oximetry O2 Sat by Pulse Oximetry [ Assessment] 09/30/17 09/30/17 09/30/17 00:45 01:00 01:15 Temperature Pulse Rate 107 H 106 H 102 H Pulse Rate [ Anterior Bilateral Throughout] Pulse Rate [ Apical] Pulse Rate [ From Monitor] Pulse Rate [ Left Dorsalis Pedis] Pulse Rate [ Left Radial] Pulse Rate [ Right Dorsalis Pedis] Pulse Rate [ Right Radial] Respiratory 21 21 20 Rate Respiratory Rate [Anterior Bilateral Throughout] Blood Pressure 112/51 109/49 101/47 O2 Sat by Pulse 98 98 97 Oximetry O2 Sat by Pulse Oximetry [ Assessment] 09/30/17 09/30/17 09/30/17 01:30 01:33 01:45 Temperature 99.3 F Pulse Rate 105 H 81 107 H Pulse Rate [ Anterior Bilateral Throughout] Pulse Rate [ Apical] Pulse Rate [ From Monitor] Pulse Rate [ Left Dorsalis Pedis] Pulse Rate [ Left Radial] Pulse Rate [ Right Dorsalis Pedis] Pulse Rate [ Right Radial] Respiratory 21 22 20 Rate Respiratory Rate [Anterior Bilateral Throughout] Blood Pressure 107/48 103/66 109/48 O2 Sat by Pulse 97 Oximetry O2 Sat by Pulse Oximetry [ Assessment] 09/30/17 09/30/17 09/30/17 02:00 02:15 02:30 Temperature Pulse Rate 105 H 107 H 104 H Pulse Rate [ Anterior Bilateral Throughout] Pulse Rate [ Apical] Pulse Rate [ From Monitor] Pulse Rate [ Left Dorsalis Pedis] Pulse Rate [ Left Radial] Pulse Rate [ Right Dorsalis Pedis] Pulse Rate [ Right Radial] Respiratory 19 21 21 Rate Respiratory Rate [Anterior Bilateral Throughout] Blood Pressure 106/45 109/45 101/45 O2 Sat by Pulse 98 97 97 Oximetry O2 Sat by Pulse Oximetry [ Assessment] 09/30/17 09/30/17 09/30/17 02:45 03:00 03:15 Temperature Pulse Rate 109 H 108 H 111 H Pulse Rate [ Anterior Bilateral Throughout] Pulse Rate [ Apical] Pulse Rate [ From Monitor] Pulse Rate [ Left Dorsalis Pedis] Pulse Rate [ Left Radial] Pulse Rate [ Right Dorsalis Pedis] Pulse Rate [ Right Radial] Respiratory 24 21 26 H Rate Respiratory Rate [Anterior Bilateral Throughout] Blood Pressure 109/47 110/49 103/62 O2 Sat by Pulse 97 99 99 Oximetry O2 Sat by Pulse Oximetry [ Assessment] 09/30/17 09/30/17 09/30/17 03:31 03:45 04:00 Temperature 99.0 F Pulse Rate 105 H 104 H 105 H Pulse Rate [ Anterior Bilateral Throughout] Pulse Rate [ 112 H Apical] Pulse Rate [ 112 H From Monitor] Pulse Rate [ 112 H Left Dorsalis Pedis] Pulse Rate [ 112 H Left Radial] Pulse Rate [ 112 H Right Dorsalis Pedis] Pulse Rate [ 112 H Right Radial] Respiratory 20 23 22 Rate Respiratory Rate [Anterior Bilateral Throughout] Blood Pressure 113/45 115/55 113/53 O2 Sat by Pulse 100 98 99 Oximetry O2 Sat by Pulse Oximetry [ Assessment] 09/30/17 09/30/17 09/30/17 04:15 04:30 04:45 Temperature Pulse Rate 108 H 104 H 109 H Pulse Rate [ Anterior Bilateral Throughout] Pulse Rate [ Apical] Pulse Rate [ From Monitor] Pulse Rate [ Left Dorsalis Pedis] Pulse Rate [ Left Radial] Pulse Rate [ Right Dorsalis Pedis] Pulse Rate [ Right Radial] Respiratory 22 21 23 Rate Respiratory Rate [Anterior Bilateral Throughout] Blood Pressure 116/54 113/55 117/55 O2 Sat by Pulse 98 99 98 Oximetry O2 Sat by Pulse Oximetry [ Assessment] 09/30/17 09/30/17 09/30/17 05:00 05:09 05:15 Temperature Pulse Rate 108 H 100 H 105 H Pulse Rate [ Anterior Bilateral Throughout] Pulse Rate [ Apical] Pulse Rate [ From Monitor] Pulse Rate [ Left Dorsalis Pedis] Pulse Rate [ Left Radial] Pulse Rate [ Right Dorsalis Pedis] Pulse Rate [ Right Radial] Respiratory 22 20 21 Rate Respiratory Rate [Anterior Bilateral Throughout] Blood Pressure 120/55 120/55 119/54 O2 Sat by Pulse 99 100 99 Oximetry O2 Sat by Pulse Oximetry [ Assessment] 09/30/17 09/30/17 09/30/17 05:30 05:45 06:00 Temperature Pulse Rate 108 H 105 H 107 H Pulse Rate [ Anterior Bilateral Throughout] Pulse Rate [ Apical] Pulse Rate [ From Monitor] Pulse Rate [ Left Dorsalis Pedis] Pulse Rate [ Left Radial] Pulse Rate [ Right Dorsalis Pedis] Pulse Rate [ Right Radial] Respiratory 24 20 20 Rate Respiratory Rate [Anterior Bilateral Throughout] Blood Pressure 116/53 119/51 119/55 O2 Sat by Pulse 99 99 99 Oximetry O2 Sat by Pulse Oximetry [ Assessment] 09/30/17 09/30/17 09/30/17 06:15 06:30 06:45 Temperature Pulse Rate 109 H 108 H 109 H Pulse Rate [ Anterior Bilateral Throughout] Pulse Rate [ Apical] Pulse Rate [ From Monitor] Pulse Rate [ Left Dorsalis Pedis] Pulse Rate [ Left Radial] Pulse Rate [ Right Dorsalis Pedis] Pulse Rate [ Right Radial] Respiratory 22 21 22 Rate Respiratory Rate [Anterior Bilateral Throughout] Blood Pressure 122/59 122/53 120/57 O2 Sat by Pulse 99 98 99 Oximetry O2 Sat by Pulse Oximetry [ Assessment] 09/30/17 09/30/17 09/30/17 07:00 07:15 07:30 Temperature Pulse Rate 110 H 109 H 111 H Pulse Rate [ Anterior Bilateral Throughout] Pulse Rate [ Apical] Pulse Rate [ From Monitor] Pulse Rate [ Left Dorsalis Pedis] Pulse Rate [ Left Radial] Pulse Rate [ Right Dorsalis Pedis] Pulse Rate [ Right Radial] Respiratory 22 20 24 Rate Respiratory Rate [Anterior Bilateral Throughout] Blood Pressure 128/55 120/58 119/57 O2 Sat by Pulse 98 98 98 Oximetry O2 Sat by Pulse Oximetry [ Assessment] 09/30/17 09/30/17 09/30/17 07:45 08:00 08:15 Temperature 98.6 F Pulse Rate 114 H 108 H 110 H Pulse Rate [ Anterior Bilateral Throughout] Pulse Rate [ Apical] Pulse Rate [ From Monitor] Pulse Rate [ Left Dorsalis Pedis] Pulse Rate [ Left Radial] Pulse Rate [ Right Dorsalis Pedis] Pulse Rate [ Right Radial] Respiratory 26 H 19 27 H Rate Respiratory Rate [Anterior Bilateral Throughout] Blood Pressure 124/63 121/56 122/52 O2 Sat by Pulse 99 99 98 Oximetry O2 Sat by Pulse Oximetry [ Assessment] 09/30/17 09/30/17 09/30/17 08:30 08:45 09:00 Temperature Pulse Rate 108 H 100 H 106 H Pulse Rate [ Anterior Bilateral Throughout] Pulse Rate [ Apical] Pulse Rate [ From Monitor] Pulse Rate [ Left Dorsalis Pedis] Pulse Rate [ Left Radial] Pulse Rate [ Right Dorsalis Pedis] Pulse Rate [ Right Radial] Respiratory 25 H 25 H 26 H Rate Respiratory Rate [Anterior Bilateral Throughout] Blood Pressure 118/55 128/55 115/57 O2 Sat by Pulse 97 96 96 Oximetry O2 Sat by Pulse Oximetry [ Assessment] 09/30/17 09/30/17 09/30/17 09:14 09:15 09:16 Temperature Pulse Rate 108 H 111 H Pulse Rate [ 111 H Anterior Bilateral Throughout] Pulse Rate [ Apical] Pulse Rate [ From Monitor] Pulse Rate [ Left Dorsalis Pedis] Pulse Rate [ Left Radial] Pulse Rate [ Right Dorsalis Pedis] Pulse Rate [ Right Radial] Respiratory 34 H Rate Respiratory 27 H Rate [Anterior Bilateral Throughout] Blood Pressure 115/57 134/65 O2 Sat by Pulse 97 96 Oximetry O2 Sat by Pulse Oximetry [ Assessment] 09/30/17 09:32 Temperature Pulse Rate Pulse Rate [ 111 H Anterior Bilateral Throughout] Pulse Rate [ Apical] Pulse Rate [ From Monitor] Pulse Rate [ Left Dorsalis Pedis] Pulse Rate [ Left Radial] Pulse Rate [ Right Dorsalis Pedis] Pulse Rate [ Right Radial] Respiratory Rate Respiratory 21 Rate [Anterior Bilateral Throughout] Blood Pressure O2 Sat by Pulse Oximetry O2 Sat by Pulse Oximetry [ Assessment] Constitutional: other (critically ill on vent, obese) Eyes: non-icteric ENT: oropharynx dry Neck: supple, other (trach in position, no bleeding) Effort: normal Ascultation: Bilateral: clear ( ), diminished breath sounds (Limited expansion) , wheezes (faint expiratory wheezes), rhonchi (sporadic), other (coarse BS bilaterally) Cardiovascular: regular rate and rhythm (no mrg) Gastrointestinal: absent bowel sounds, non-tender, other (abdominal incision with dressing , obese. Drain in place, no bleeding; ostomy with brown stool) Integumentary: normal Extremities: no cyanosis, pink and warm, edema Neurologic: non-focal exam, pupils equal and round Psychiatric: mood appropriate, affect normal CBC and BMP: 09/30/17 05:20 09/30/17 05:20 ABG, PT/INR, D-dimer: ABG POC ABG pH 7.347 (7.35-7.45) L 09/13/17 11:36 ABG pH 7.323 pH Units (7.350-7.450) L 09/09/17 Unknown POC ABG pCO2 34.3 (35-45) L 09/13/17 11:36 ABG pCO2 41.1 mm Hg 09/09/17 Unknown POC ABG pO2 134 (80-105) H 09/13/17 11:36 ABG pO2 94.1 mm Hg (80.0-90.0) H 09/09/17 Unknown POC ABG HCO3 18.8 09/13/17 11:36 POC ABG Total CO2 20 09/13/17 11:36 POC ABG O2 Sat 99 09/13/17 11:36 ABG O2 Saturation 97.2 % (95.0-99.0) 09/09/17 Unknown PT/INR, D-dimer PT 14.9 Sec. (12.2-14.9) 09/21/17 07:00 INR 1.11 (0.87-1.13) 09/21/17 07:00 Abnormal lab findings: Abnormal Labs 08/08/17 08/08/17 08/09/17 21:23 21:31 11:19 WBC 15.7 H RBC 2.93 L Hgb 8.7 L Hct 26.8 L MCV MCH MCHC RDW 19.2 H Plt Count Lymph % (Auto) [place]wey % (Auto) [place] # Seg Neutrophils % Seg Neuts % (Manual) Lymphocytes % (Manual) Monocytes % (Manual) Nucleated RBC % Seg Neutrophils # Seg Neutrophils # Man Lymphocytes # (Manual) Monocytes # (Manual) Eosinophils # (Manual) Basophils # (Manual) PT INR POC ABG pH 7.490 H ABG pH POC ABG pCO2 POC ABG pO2 122 H ABG pO2 ABG O2 Saturation ABG Base Excess ABG Hemoglobin Oxyhemoglobin Sodium Potassium Chloride Carbon Dioxide BUN Creatinine Glucose POC Glucose Calcium Phosphorus Magnesium Iron TIBC Ferritin Total Bilirubin AST ALT Alkaline Phosphatase Total Creatine Kinase Troponin T 0.133 H* C-Reactive Protein Total Protein Albumin Triglycerides HDL Cholesterol 26 L Miscellaneous Test Crossmatch 08/09/17 08/10/17 08/10/17 13:25 04:45 04:45 WBC 15.5 H RBC 2.97 L Hgb 8.9 L Hct 27.0 L MCV MCH MCHC RDW 19.2 H Plt Count Lymph % (Auto) [place] % (Auto) [place] # Seg Neutrophils % Seg Neuts % (Manual) 73.0 H Lymphocytes % (Manual) 7.0 L Monocytes % (Manual) 14.0 H Nucleated RBC % Seg Neutrophils # Seg Neutrophils # Man 11.3 H Lymphocytes # (Manual) 1.1 L Monocytes # (Manual) 2.2 H Eosinophils # (Manual) Basophils # (Manual) 0.2 H PT INR POC ABG pH ABG pH POC ABG pCO2 POC ABG pO2 ABG pO2 ABG O2 Saturation ABG Base Excess ABG Hemoglobin Oxyhemoglobin Sodium Potassium 3.3 L Chloride 97.3 L Carbon Dioxide 21 L BUN 23 H Creatinine 6.5 H Glucose POC Glucose Calcium 7.3 L Phosphorus Magnesium Iron TIBC Ferritin Total Bilirubin AST ALT Alkaline Phosphatase 138 H Total Creatine Kinase Troponin T 0.132 H* C-Reactive Protein Total Protein 4.8 L Albumin 1.4 L Triglycerides HDL Cholesterol Miscellaneous Test Crossmatch 08/11/17 08/11/17 08/12/17 04:00 04:00 05:50 WBC 19.3 H RBC 3.10 L Hgb 9.5 L Hct 28.2 L MCV MCH MCHC RDW 19.2 H Plt Count 463 H Lymph % (Auto) 7.5 L [place] % (Auto) 14.6 H [place] # 2.8 H Seg Neutrophils % 77.0 H Seg Neuts % (Manual) Lymphocytes % (Manual) Monocytes % (Manual) Nucleated RBC % Seg Neutrophils # 14.8 H Seg Neutrophils # Man Lymphocytes # (Manual) Monocytes # (Manual) Eosinophils # (Manual) Basophils # (Manual) PT INR POC ABG pH ABG pH POC ABG pCO2 POC ABG pO2 ABG pO2 ABG O2 Saturation ABG Base Excess ABG Hemoglobin Oxyhemoglobin Sodium 136 L 136 L Potassium 3.3 L Chloride 96.3 L 96.6 L Carbon Dioxide BUN 26 H 26 H Creatinine 6.4 H 6.2 H Glucose 135 H 133 H POC Glucose Calcium 8.2 L Phosphorus Magnesium 1.30 L Iron TIBC Ferritin Total Bilirubin AST ALT Alkaline Phosphatase 139 H Total Creatine Kinase Troponin T C-Reactive Protein Total Protein 5.5 L Albumin 1.7 L Triglycerides HDL Cholesterol Miscellaneous Test Crossmatch 08/12/17 08/12/17 08/12/17 05:50 05:50 05:50 WBC 20.1 H RBC 3.06 L Hgb 9.3 L Hct 27.9 L MCV MCH MCHC RDW 18.4 H Plt Count 471 H Lymph % (Auto) [place] % (Auto) [place] # Seg Neutrophils % Seg Neuts % (Manual) 85.0 H Lymphocytes % (Manual) 8.0 L Monocytes % (Manual) Nucleated RBC % Seg Neutrophils # Seg Neutrophils # Man 17.1 H Lymphocytes # (Manual) Monocytes # (Manual) 1.0 H Eosinophils # (Manual) Basophils # (Manual) PT 15.2 H INR 1.14 H POC ABG pH ABG pH POC ABG pCO2 POC ABG pO2 ABG pO2 ABG O2 Saturation ABG Base Excess ABG Hemoglobin Oxyhemoglobin Sodium Potassium Chloride Carbon Dioxide BUN Creatinine Glucose POC Glucose Calcium Phosphorus Magnesium Iron TIBC Ferritin Total Bilirubin AST ALT Alkaline Phosphatase Total Creatine Kinase Troponin T C-Reactive Protein 28.90 H Total Protein Albumin Triglycerides HDL Cholesterol Miscellaneous Test Crossmatch 08/12/17 08/13/17 08/13/17 16:23 06:14 06:14 WBC 21.8 H RBC 3.11 L Hgb 9.4 L Hct 28.2 L MCV MCH MCHC RDW 18.2 H Plt Count 492 H Lymph % (Auto) [place] % (Auto) [place] # Seg Neutrophils % Seg Neuts % (Manual) 73.0 H Lymphocytes % (Manual) 2.0 L Monocytes % (Manual) 15 H Nucleated RBC % Seg Neutrophils # Seg Neutrophils # Man 15.9 H Lymphocytes # (Manual) 0.4 L Monocytes # (Manual) 2.4 H Eosinophils # (Manual) Basophils # (Manual) PT INR POC ABG pH ABG pH POC ABG pCO2 POC ABG pO2 ABG pO2 ABG O2 Saturation ABG Base Excess ABG Hemoglobin Oxyhemoglobin Sodium Potassium Chloride 96.2 L Carbon Dioxide BUN 28 H Creatinine 5.6 H Glucose 114 H POC Glucose Calcium Phosphorus Magnesium Iron TIBC Ferritin Total Bilirubin AST ALT Alkaline Phosphatase Total Creatine Kinase Troponin T C-Reactive Protein 26.10 H Total Protein Albumin Triglycerides HDL Cholesterol Miscellaneous Test Crossmatch 08/13/17 08/14/17 08/14/17 16:39 04:00 04:00 WBC 22.1 H RBC 3.25 L Hgb 9.9 L Hct 29.5 L MCV MCH MCHC RDW 17.9 H Plt Count 525 H Lymph % (Auto) [place] % (Auto) [place] # Seg Neutrophils % Seg Neuts % (Manual) 74.0 H Lymphocytes % (Manual) 8.0 L Monocytes % (Manual) 12.0 H Nucleated RBC % Seg Neutrophils # Seg Neutrophils # Man 16.4 H Lymphocytes # (Manual) Monocytes # (Manual) 2.7 H Eosinophils # (Manual) Basophils # (Manual) PT INR POC ABG pH ABG pH POC ABG pCO2 POC ABG pO2 ABG pO2 ABG O2 Saturation ABG Base Excess ABG Hemoglobin Oxyhemoglobin Sodium 134 L Potassium 3.3 L Chloride 93.3 L Carbon Dioxide BUN 27 H Creatinine 6.0 H Glucose 152 H POC Glucose 151 H Calcium Phosphorus Magnesium Iron TIBC Ferritin Total Bilirubin AST ALT Alkaline Phosphatase Total Creatine Kinase Troponin T C-Reactive Protein Total Protein Albumin Triglycerides HDL Cholesterol Miscellaneous Test Crossmatch 08/15/17 08/16/17 08/16/17 09:10 09:50 09:50 WBC 31.1 H RBC 3.21 L Hgb 9.6 L Hct 29.3 L MCV MCH MCHC RDW 18.1 H Plt Count 642 H Lymph % (Auto) [place] % (Auto) [place] # Seg Neutrophils % Seg Neuts % (Manual) 74.0 H Lymphocytes % (Manual) 4.0 L Monocytes % (Manual) 9.0 H Nucleated RBC % Seg Neutrophils # Seg Neutrophils # Man 23.0 H Lymphocytes # (Manual) Monocytes # (Manual) 2.8 H Eosinophils # (Manual) Basophils # (Manual) PT INR POC ABG pH ABG pH POC ABG pCO2 POC ABG pO2 ABG pO2 ABG O2 Saturation ABG Base Excess ABG Hemoglobin Oxyhemoglobin Sodium 136 L 136 L Potassium 3.5 L Chloride 97.6 L 94.9 L Carbon Dioxide BUN 27 H 28 H Creatinine 5.6 H 5.5 H Glucose 117 H 103 H POC Glucose Calcium Phosphorus Magnesium Iron TIBC Ferritin Total Bilirubin AST ALT Alkaline Phosphatase 137 H Total Creatine Kinase Troponin T C-Reactive Protein Total Protein 5.4 L Albumin 1.5 L Triglycerides HDL Cholesterol Miscellaneous Test Crossmatch 08/16/17 08/17/17 08/17/17 09:50 05:00 06:26 WBC RBC Hgb Hct MCV MCH MCHC RDW Plt Count Lymph % (Auto) [place] % (Auto) [place] # Seg Neutrophils % Seg Neuts % (Manual) Lymphocytes % (Manual) Monocytes % (Manual) Nucleated RBC % Seg Neutrophils # Seg Neutrophils # Man Lymphocytes # (Manual) Monocytes # (Manual) Eosinophils # (Manual) Basophils # (Manual) PT INR POC ABG pH ABG pH POC ABG pCO2 POC ABG pO2 ABG pO2 ABG O2 Saturation ABG Base Excess ABG Hemoglobin Oxyhemoglobin Sodium 134 L Potassium 3.0 L Chloride 97.8 L Carbon Dioxide BUN 30 H Creatinine 5.3 H Glucose 147 H POC Glucose 165 H Calcium 7.5 L Phosphorus Magnesium Iron TIBC Ferritin Total Bilirubin AST ALT Alkaline Phosphatase Total Creatine Kinase Troponin T C-Reactive Protein 32.30 H Total Protein Albumin Triglycerides HDL Cholesterol Miscellaneous Test Crossmatch 08/17/17 08/17/17 08/17/17 10:56 11:20 11:20 WBC 39.1 H RBC 3.10 L Hgb 9.2 L Hct 28.6 L MCV MCH MCHC RDW 18.3 H Plt Count 580 H Lymph % (Auto) [place] % (Auto) [place] # Seg Neutrophils % Seg Neuts % (Manual) 89.5 H Lymphocytes % (Manual) 3.5 L Monocytes % (Manual) Nucleated RBC % Seg Neutrophils # Seg Neutrophils # Man 35.0 H Lymphocytes # (Manual) Monocytes # (Manual) 2.5 H Eosinophils # (Manual) Basophils # (Manual) 0.2 H PT INR POC ABG pH 7.464 H ABG pH POC ABG pCO2 34.1 L POC ABG pO2 75 L ABG pO2 ABG O2 Saturation ABG Base Excess ABG Hemoglobin Oxyhemoglobin Sodium Potassium Chloride Carbon Dioxide BUN Creatinine Glucose POC Glucose Calcium Phosphorus Magnesium Iron TIBC Ferritin Total Bilirubin AST ALT Alkaline Phosphatase Total Creatine Kinase Troponin T C-Reactive Protein Total Protein Albumin Triglycerides HDL Cholesterol Miscellaneous Test Flexitest 1 H Crossmatch 08/17/17 08/17/17 08/17/17 11:20 16:57 20:20 WBC 34.4 H RBC 2.81 L Hgb 8.4 L Hct 26.0 L MCV MCH MCHC RDW 17.8 H Plt Count 455 H Lymph % (Auto) [place] % (Auto) [place] # Seg Neutrophils % Seg Neuts % (Manual) Lymphocytes % (Manual) 3.5 L Monocytes % (Manual) Nucleated RBC % 5.0 H Seg Neutrophils # Seg Neutrophils # Man 16.5 H Lymphocytes # (Manual) Monocytes # (Manual) 1.0 H Eosinophils # (Manual) Basophils # (Manual) PT 16.0 H INR 1.29 H POC ABG pH ABG pH POC ABG pCO2 POC ABG pO2 ABG pO2 ABG O2 Saturation ABG Base Excess ABG Hemoglobin Oxyhemoglobin Sodium 135 L Potassium 2.9 L* Chloride Carbon Dioxide 20 L BUN 32 H Creatinine 5.4 H Glucose 129 H POC Glucose Calcium 7.5 L Phosphorus Magnesium 1.50 L Iron TIBC Ferritin Total Bilirubin AST 85 H ALT Alkaline Phosphatase Total Creatine Kinase Troponin T C-Reactive Protein Total Protein 4.0 L D Albumin 1.6 L Triglycerides HDL Cholesterol Miscellaneous Test Crossmatch 08/17/17 08/17/17 08/18/17 20:54 23:47 04:26 WBC RBC Hgb Hct MCV MCH MCHC RDW Plt Count Lymph % (Auto) [place] % (Auto) [place] # Seg Neutrophils % Seg Neuts % (Manual) Lymphocytes % (Manual) Monocytes % (Manual) Nucleated RBC % Seg Neutrophils # Seg Neutrophils # Man Lymphocytes # (Manual) Monocytes # (Manual) Eosinophils # (Manual) Basophils # (Manual) PT INR POC ABG pH 7.557 H ABG pH POC ABG pCO2 23.1 L 29.0 L POC ABG pO2 187 H 148 H ABG pO2 ABG O2 Saturation ABG Base Excess ABG Hemoglobin Oxyhemoglobin Sodium Potassium Chloride Carbon Dioxide BUN Creatinine Glucose POC Glucose 188 H Calcium Phosphorus Magnesium Iron TIBC Ferritin Total Bilirubin AST ALT Alkaline Phosphatase Total Creatine Kinase Troponin T C-Reactive Protein Total Protein Albumin Triglycerides HDL Cholesterol Miscellaneous Test Crossmatch 08/18/17 08/18/17 08/18/17 05:51 11:44 17:07 WBC RBC Hgb Hct MCV MCH MCHC RDW Plt Count Lymph % (Auto) [place] % (Auto) [place] # Seg Neutrophils % Seg Neuts % (Manual) Lymphocytes % (Manual) Monocytes % (Manual) Nucleated RBC % Seg Neutrophils # Seg Neutrophils # Man Lymphocytes # (Manual) Monocytes # (Manual) Eosinophils # (Manual) Basophils # (Manual) PT INR POC ABG pH ABG pH POC ABG pCO2 POC ABG pO2 ABG pO2 ABG O2 Saturation ABG Base Excess ABG Hemoglobin Oxyhemoglobin Sodium Potassium Chloride Carbon Dioxide BUN Creatinine Glucose POC Glucose 202 H 195 H 182 H Calcium Phosphorus Magnesium Iron TIBC Ferritin Total Bilirubin AST ALT Alkaline Phosphatase Total Creatine Kinase Troponin T C-Reactive Protein Total Protein Albumin Triglycerides HDL Cholesterol Miscellaneous Test Crossmatch 08/18/17 08/18/17 08/18/17 23:45 Unknown Unknown WBC 39.0 H RBC 2.84 L Hgb 8.4 L Hct 26.5 L MCV MCH MCHC RDW 18.0 H Plt Count 476 H Lymph % (Auto) [place] % (Auto) [place] # Seg Neutrophils % Seg Neuts % (Manual) Lymphocytes % (Manual) 7.0 L Monocytes % (Manual) 10.0 H Nucleated RBC % 3.0 H Seg Neutrophils # Seg Neutrophils # Man 15.6 H Lymphocytes # (Manual) Monocytes # (Manual) 3.9 H Eosinophils # (Manual) Basophils # (Manual) PT INR POC ABG pH ABG pH POC ABG pCO2 POC ABG pO2 ABG pO2 ABG O2 Saturation ABG Base Excess ABG Hemoglobin Oxyhemoglobin Sodium Potassium Chloride Carbon Dioxide 19 L BUN 34 H Creatinine 5.6 H Glucose 201 H POC Glucose 163 H Calcium 7.8 L Phosphorus 1.90 L D Magnesium 1.60 L Iron TIBC Ferritin Total Bilirubin AST ALT Alkaline Phosphatase Total Creatine Kinase Troponin T C-Reactive Protein Total Protein Albumin Triglycerides HDL Cholesterol Miscellaneous Test Crossmatch 08/19/17 08/19/17 08/19/17 04:18 05:00 05:00 WBC 40.0 H RBC 2.46 L Hgb 7.3 L Hct 22.6 L MCV MCH MCHC RDW 18.1 H Plt Count Lymph % (Auto) [place] % (Auto) [place] # Seg Neutrophils % Seg Neuts % (Manual) Lymphocytes % (Manual) 8.0 L Monocytes % (Manual) Nucleated RBC % 2.0 H Seg Neutrophils # Seg Neutrophils # Man 16.4 H Lymphocytes # (Manual) Monocytes # (Manual) 1.2 H Eosinophils # (Manual) 1.2 H Basophils # (Manual) PT INR POC ABG pH 7.463 H ABG pH POC ABG pCO2 29.7 L POC ABG pO2 134 H ABG pO2 ABG O2 Saturation ABG Base Excess ABG Hemoglobin Oxyhemoglobin Sodium Potassium 5.1 H D Chloride Carbon Dioxide 20 L BUN 40 H Creatinine 5.3 H Glucose 128 H POC Glucose Calcium 7.8 L Phosphorus 1.90 L Magnesium Iron TIBC Ferritin Total Bilirubin AST ALT Alkaline Phosphatase Total Creatine Kinase Troponin T C-Reactive Protein Total Protein Albumin Triglycerides HDL Cholesterol Miscellaneous Test Crossmatch 08/19/17 08/19/17 08/19/17 05:19 07:37 09:52 WBC 45.0 H* RBC 2.50 L Hgb 7.5 L Hct 24.5 L MCV 98 H MCH MCHC RDW 18.4 H Plt Count Lymph % (Auto) [place] % (Auto) [place] # Seg Neutrophils % Seg Neuts % (Manual) 81.5 H Lymphocytes % (Manual) 4.0 L Monocytes % (Manual) Nucleated RBC % 1.0 H Seg Neutrophils # Seg Neutrophils # Man 36.7 H Lymphocytes # (Manual) Monocytes # (Manual) Eosinophils # (Manual) Basophils # (Manual) PT INR POC ABG pH ABG pH POC ABG pCO2 POC ABG pO2 ABG pO2 ABG O2 Saturation ABG Base Excess ABG Hemoglobin Oxyhemoglobin Sodium Potassium Chloride Carbon Dioxide BUN Creatinine Glucose POC Glucose 142 H Calcium Phosphorus Magnesium Iron TIBC Ferritin Total Bilirubin AST ALT Alkaline Phosphatase Total Creatine Kinase Troponin T C-Reactive Protein 34.20 H Total Protein Albumin Triglycerides HDL Cholesterol Miscellaneous Test Crossmatch 08/19/17 08/19/17 08/20/17 11:16 18:12 00:35 WBC RBC Hgb Hct MCV MCH MCHC RDW Plt Count Lymph % (Auto) [place] % (Auto) [place] # Seg Neutrophils % Seg Neuts % (Manual) Lymphocytes % (Manual) Monocytes % (Manual) Nucleated RBC % Seg Neutrophils # Seg Neutrophils # Man Lymphocytes # (Manual) Monocytes # (Manual) Eosinophils # (Manual) Basophils # (Manual) PT INR POC ABG pH ABG pH POC ABG pCO2 POC ABG pO2 ABG pO2 ABG O2 Saturation ABG Base Excess ABG Hemoglobin Oxyhemoglobin Sodium Potassium Chloride Carbon Dioxide BUN Creatinine Glucose POC Glucose 143 H 137 H 164 H Calcium Phosphorus Magnesium Iron TIBC Ferritin Total Bilirubin AST ALT Alkaline Phosphatase Total Creatine Kinase Troponin T C-Reactive Protein Total Protein Albumin Triglycerides HDL Cholesterol Miscellaneous Test Crossmatch 08/20/17 08/20/17 08/20/17 03:20 03:20 04:00 WBC 48.0 H* RBC 2.55 L Hgb 7.6 L Hct 23.4 L MCV MCH MCHC RDW 18.4 H Plt Count Lymph % (Auto) [place] % (Auto) [place] # Seg Neutrophils % Seg Neuts % (Manual) 90.0 H Lymphocytes % (Manual) 3.0 L Monocytes % (Manual) Nucleated RBC % Seg Neutrophils # Seg Neutrophils # Man 43.2 H Lymphocytes # (Manual) Monocytes # (Manual) 1.4 H Eosinophils # (Manual) 0.5 H Basophils # (Manual) PT INR POC ABG pH 7.499 H ABG pH POC ABG pCO2 29.1 L POC ABG pO2 ABG pO2 ABG O2 Saturation ABG Base Excess ABG Hemoglobin Oxyhemoglobin Sodium 135 L Potassium Chloride Carbon Dioxide BUN 28 H Creatinine 4.0 H Glucose 140 H POC Glucose Calcium 8.0 L Phosphorus 1.70 L Magnesium 1.60 L Iron TIBC Ferritin Total Bilirubin AST ALT Alkaline Phosphatase Total Creatine Kinase Troponin T C-Reactive Protein Total Protein Albumin Triglycerides HDL Cholesterol Miscellaneous Test Crossmatch 08/20/17 08/20/17 08/20/17 05:02 12:05 13:12 WBC RBC Hgb Hct MCV MCH MCHC RDW Plt Count Lymph % (Auto) [place] % (Auto) [place] # Seg Neutrophils % Seg Neuts % (Manual) Lymphocytes % (Manual) Monocytes % (Manual) Nucleated RBC % Seg Neutrophils # Seg Neutrophils # Man Lymphocytes # (Manual) Monocytes # (Manual) Eosinophils # (Manual) Basophils # (Manual) PT INR POC ABG pH 7.537 H ABG pH POC ABG pCO2 27.9 L POC ABG pO2 79 L ABG pO2 ABG O2 Saturation ABG Base Excess ABG Hemoglobin Oxyhemoglobin Sodium Potassium Chloride Carbon Dioxide BUN Creatinine Glucose POC Glucose 158 H 203 H Calcium Phosphorus Magnesium Iron TIBC Ferritin Total Bilirubin AST ALT Alkaline Phosphatase Total Creatine Kinase Troponin T C-Reactive Protein Total Protein Albumin Triglycerides HDL Cholesterol Miscellaneous Test Crossmatch 08/20/17 08/21/17 08/21/17 17:13 00:47 03:14 WBC RBC Hgb Hct MCV MCH MCHC RDW Plt Count Lymph % (Auto) [place] % (Auto) [place] # Seg Neutrophils % Seg Neuts % (Manual) Lymphocytes % (Manual) Monocytes % (Manual) Nucleated RBC % Seg Neutrophils # Seg Neutrophils # Man Lymphocytes # (Manual) Monocytes # (Manual) Eosinophils # (Manual) Basophils # (Manual) PT INR POC ABG pH 7.481 H ABG pH POC ABG pCO2 29.6 L POC ABG pO2 ABG pO2 ABG O2 Saturation ABG Base Excess ABG Hemoglobin Oxyhemoglobin Sodium Potassium Chloride Carbon Dioxide BUN Creatinine Glucose POC Glucose 188 H 109 H Calcium Phosphorus Magnesium Iron TIBC Ferritin Total Bilirubin AST ALT Alkaline Phosphatase Total Creatine Kinase Troponin T C-Reactive Protein Total Protein Albumin Triglycerides HDL Cholesterol Miscellaneous Test Crossmatch 08/21/17 08/21/17 08/21/17 05:05 06:50 06:50 WBC 44.7 H* RBC 2.41 L Hgb 7.1 L Hct 22.1 L MCV MCH MCHC RDW 18.3 H Plt Count Lymph % (Auto) [place] % (Auto) [place] # Seg Neutrophils % Seg Neuts % (Manual) 89.0 H Lymphocytes % (Manual) 0 L Monocytes % (Manual) Nucleated RBC % 1.0 H Seg Neutrophils # Seg Neutrophils # Man 39.8 H Lymphocytes # (Manual) 0.0 L Monocytes # (Manual) 1.3 H Eosinophils # (Manual) Basophils # (Manual) PT INR POC ABG pH ABG pH POC ABG pCO2 POC ABG pO2 ABG pO2 ABG O2 Saturation ABG Base Excess ABG Hemoglobin Oxyhemoglobin Sodium 135 L Potassium Chloride Carbon Dioxide BUN 39 H Creatinine 4.4 H Glucose 147 H POC Glucose 166 H Calcium 8.1 L Phosphorus Magnesium Iron TIBC Ferritin Total Bilirubin AST ALT < 5 L Alkaline Phosphatase 164 H Total Creatine Kinase Troponin T C-Reactive Protein Total Protein 4.7 L Albumin 1.4 L Triglycerides HDL Cholesterol Miscellaneous Test Crossmatch 08/21/17 08/21/17 08/21/17 08:00 12:21 17:02 WBC RBC Hgb Hct MCV MCH MCHC RDW Plt Count Lymph % (Auto) [place] % (Auto) [place] # Seg Neutrophils % Seg Neuts % (Manual) Lymphocytes % (Manual) Monocytes % (Manual) Nucleated RBC % Seg Neutrophils # Seg Neutrophils # Man Lymphocytes # (Manual) Monocytes # (Manual) Eosinophils # (Manual) Basophils # (Manual) PT INR POC ABG pH ABG pH POC ABG pCO2 POC ABG pO2 ABG pO2 ABG O2 Saturation ABG Base Excess ABG Hemoglobin Oxyhemoglobin Sodium Potassium Chloride Carbon Dioxide BUN Creatinine Glucose POC Glucose 147 H 135 H Calcium Phosphorus Magnesium Iron TIBC Ferritin Total Bilirubin AST ALT Alkaline Phosphatase Total Creatine Kinase Troponin T C-Reactive Protein Total Protein Albumin Triglycerides HDL Cholesterol Miscellaneous Test Crossmatch See Detail 08/21/17 08/22/17 08/22/17 23:38 03:40 03:40 WBC 42.5 H* RBC 2.88 L Hgb 8.5 L Hct 26.3 L MCV MCH MCHC RDW 17.9 H Plt Count Lymph % (Auto) [place] % (Auto) [place] # Seg Neutrophils % Seg Neuts % (Manual) Lymphocytes % (Manual) 5.0 L Monocytes % (Manual) Nucleated RBC % Seg Neutrophils # Seg Neutrophils # Man 19.6 H Lymphocytes # (Manual) Monocytes # (Manual) 2.6 H Eosinophils # (Manual) Basophils # (Manual) PT INR POC ABG pH ABG pH POC ABG pCO2 POC ABG pO2 ABG pO2 ABG O2 Saturation ABG Base Excess ABG Hemoglobin Oxyhemoglobin Sodium Potassium 3.3 L D Chloride Carbon Dioxide BUN 27 H Creatinine 2.9 H Glucose 144 H POC Glucose 251 H Calcium 8.0 L Phosphorus 2.40 L Magnesium Iron TIBC Ferritin Total Bilirubin AST ALT Alkaline Phosphatase Total Creatine Kinase Troponin T C-Reactive Protein Total Protein Albumin Triglycerides HDL Cholesterol Miscellaneous Test Crossmatch 08/22/17 08/22/17 08/22/17 06:37 08:50 11:25 WBC RBC Hgb Hct MCV MCH MCHC RDW Plt Count Lymph % (Auto) [place] % (Auto) [place] # Seg Neutrophils % Seg Neuts % (Manual) Lymphocytes % (Manual) Monocytes % (Manual) Nucleated RBC % Seg Neutrophils # Seg Neutrophils # Man Lymphocytes # (Manual) Monocytes # (Manual) Eosinophils # (Manual) Basophils # (Manual) PT INR POC ABG pH ABG pH POC ABG pCO2 POC ABG pO2 ABG pO2 ABG O2 Saturation ABG Base Excess ABG Hemoglobin Oxyhemoglobin Sodium Potassium Chloride Carbon Dioxide BUN Creatinine Glucose POC Glucose 152 H 175 H Calcium Phosphorus Magnesium Iron TIBC Ferritin Total Bilirubin AST ALT Alkaline Phosphatase Total Creatine Kinase Troponin T C-Reactive Protein Total Protein Albumin Triglycerides HDL Cholesterol Miscellaneous Test Flexitest 1 H Crossmatch 08/22/17 08/22/17 08/22/17 16:25 17:56 23:03 WBC RBC Hgb Hct MCV MCH MCHC RDW Plt Count Lymph % (Auto) [place] % (Auto) [place] # Seg Neutrophils % Seg Neuts % (Manual) Lymphocytes % (Manual) Monocytes % (Manual) Nucleated RBC % Seg Neutrophils # Seg Neutrophils # Man Lymphocytes # (Manual) Monocytes # (Manual) Eosinophils # (Manual) Basophils # (Manual) PT INR POC ABG pH ABG pH POC ABG pCO2 POC ABG pO2 ABG pO2 ABG O2 Saturation ABG Base Excess ABG Hemoglobin Oxyhemoglobin Sodium Potassium Chloride Carbon Dioxide BUN Creatinine Glucose POC Glucose 232 H 192 H Calcium Phosphorus Magnesium Iron TIBC Ferritin Total Bilirubin AST ALT Alkaline Phosphatase Total Creatine Kinase Troponin T C-Reactive Protein 30.70 H Total Protein Albumin Triglycerides HDL Cholesterol Miscellaneous Test Crossmatch 08/23/17 08/23/17 08/23/17 05:36 08:50 12:14 WBC RBC Hgb Hct MCV MCH MCHC RDW Plt Count Lymph % (Auto) [place] % (Auto) [place] # Seg Neutrophils % Seg Neuts % (Manual) Lymphocytes % (Manual) Monocytes % (Manual) Nucleated RBC % Seg Neutrophils # Seg Neutrophils # Man Lymphocytes # (Manual) Monocytes # (Manual) Eosinophils # (Manual) Basophils # (Manual) PT INR POC ABG pH ABG pH POC ABG pCO2 POC ABG pO2 ABG pO2 ABG O2 Saturation ABG Base Excess ABG Hemoglobin Oxyhemoglobin Sodium Potassium Chloride 107.1 H Carbon Dioxide BUN 49 H Creatinine 3.3 H Glucose 172 H POC Glucose 206 H 238 H Calcium Phosphorus Magnesium 2.40 H Iron TIBC Ferritin Total Bilirubin AST ALT Alkaline Phosphatase Total Creatine Kinase Troponin T C-Reactive Protein Total Protein Albumin Triglycerides HDL Cholesterol Miscellaneous Test Crossmatch 08/23/17 08/23/17 08/24/17 17:21 23:13 04:00 WBC 34.2 H RBC 2.86 L Hgb 8.4 L Hct 25.9 L MCV MCH MCHC RDW 17.9 H Plt Count Lymph % (Auto) [place] % (Auto) [place] # Seg Neutrophils % Seg Neuts % (Manual) 85.0 H Lymphocytes % (Manual) 0.5 L Monocytes % (Manual) Nucleated RBC % 1.0 H Seg Neutrophils # Seg Neutrophils # Man 29.1 H Lymphocytes # (Manual) 0.2 L Monocytes # (Manual) 2.4 H Eosinophils # (Manual) Basophils # (Manual) PT INR POC ABG pH ABG pH POC ABG pCO2 POC ABG pO2 ABG pO2 ABG O2 Saturation ABG Base Excess ABG Hemoglobin Oxyhemoglobin Sodium Potassium Chloride Carbon Dioxide BUN Creatinine Glucose POC Glucose 226 H 183 H Calcium Phosphorus Magnesium Iron TIBC Ferritin Total Bilirubin AST ALT Alkaline Phosphatase Total Creatine Kinase Troponin T C-Reactive Protein Total Protein Albumin Triglycerides HDL Cholesterol Miscellaneous Test Crossmatch 08/24/17 08/24/17 08/24/17 05:06 09:30 12:04 WBC RBC Hgb Hct MCV MCH MCHC RDW Plt Count Lymph % (Auto) [place] % (Auto) [place] # Seg Neutrophils % Seg Neuts % (Manual) Lymphocytes % (Manual) Monocytes % (Manual) Nucleated RBC % Seg Neutrophils # Seg Neutrophils # Man Lymphocytes # (Manual) Monocytes # (Manual) Eosinophils # (Manual) Basophils # (Manual) PT INR POC ABG pH ABG pH POC ABG pCO2 POC ABG pO2 ABG pO2 ABG O2 Saturation ABG Base Excess ABG Hemoglobin Oxyhemoglobin Sodium Potassium Chloride Carbon Dioxide BUN 46 H Creatinine 2.5 H Glucose 176 H POC Glucose 201 H 181 H Calcium Phosphorus Magnesium Iron TIBC Ferritin Total Bilirubin AST ALT Alkaline Phosphatase Total Creatine Kinase Troponin T C-Reactive Protein Total Protein Albumin Triglycerides HDL Cholesterol Miscellaneous Test Crossmatch 08/24/17 08/24/17 08/25/17 18:04 23:05 05:05 WBC RBC Hgb Hct MCV MCH MCHC RDW Plt Count Lymph % (Auto) [place] % (Auto) [place] # Seg Neutrophils % Seg Neuts % (Manual) Lymphocytes % (Manual) Monocytes % (Manual) Nucleated RBC % Seg Neutrophils # Seg Neutrophils # Man Lymphocytes # (Manual) Monocytes # (Manual) Eosinophils # (Manual) Basophils # (Manual) PT INR POC ABG pH ABG pH POC ABG pCO2 POC ABG pO2 ABG pO2 ABG O2 Saturation ABG Base Excess ABG Hemoglobin Oxyhemoglobin Sodium Potassium Chloride Carbon Dioxide BUN Creatinine Glucose POC Glucose 189 H 175 H 190 H Calcium Phosphorus Magnesium Iron TIBC Ferritin Total Bilirubin AST ALT Alkaline Phosphatase Total Creatine Kinase Troponin T C-Reactive Protein Total Protein Albumin Triglycerides HDL Cholesterol Miscellaneous Test Crossmatch 08/25/17 08/25/17 08/26/17 07:02 11:53 05:30 WBC 33.5 H RBC 2.47 L Hgb 7.3 L Hct 23.0 L MCV MCH MCHC RDW 21.3 H Plt Count Lymph % (Auto) [place] % (Auto) [place] # Seg Neutrophils % Seg Neuts % (Manual) 92.0 H Lymphocytes % (Manual) 1.0 L Monocytes % (Manual) Nucleated RBC % Seg Neutrophils # Seg Neutrophils # Man 30.8 H Lymphocytes # (Manual) 0.3 L Monocytes # (Manual) Eosinophils # (Manual) Basophils # (Manual) PT INR POC ABG pH ABG pH POC ABG pCO2 POC ABG pO2 ABG pO2 ABG O2 Saturation ABG Base Excess ABG Hemoglobin Oxyhemoglobin Sodium Potassium Chloride Carbon Dioxide BUN 32 H Creatinine 5.0 H D Glucose 117 H POC Glucose 191 H Calcium 8.0 L Phosphorus Magnesium Iron TIBC Ferritin Total Bilirubin AST ALT Alkaline Phosphatase Total Creatine Kinase Troponin T C-Reactive Protein Total Protein Albumin Triglycerides HDL Cholesterol Miscellaneous Test Crossmatch 08/26/17 08/26/17 08/26/17 05:30 06:44 13:26 WBC RBC Hgb Hct MCV MCH MCHC RDW Plt Count Lymph % (Auto) [place] % (Auto) [place] # Seg Neutrophils % Seg Neuts % (Manual) Lymphocytes % (Manual) Monocytes % (Manual) Nucleated RBC % Seg Neutrophils # Seg Neutrophils # Man Lymphocytes # (Manual) Monocytes # (Manual) Eosinophils # (Manual) Basophils # (Manual) PT INR POC ABG pH ABG pH POC ABG pCO2 POC ABG pO2 ABG pO2 ABG O2 Saturation ABG Base Excess ABG Hemoglobin Oxyhemoglobin Sodium Potassium 5.2 H Chloride Carbon Dioxide BUN 80 H Creatinine 3.4 H Glucose 193 H POC Glucose 232 H 207 H Calcium 8.3 L Phosphorus 6.80 H D Magnesium 2.60 H Iron TIBC Ferritin Total Bilirubin AST 135 H ALT Alkaline Phosphatase 211 H Total Creatine Kinase Troponin T C-Reactive Protein Total Protein 4.8 L Albumin 2.0 L Triglycerides HDL Cholesterol Miscellaneous Test Crossmatch 08/27/17 08/27/17 08/27/17 01:08 06:20 06:20 WBC 35.0 H RBC 2.75 L Hgb 8.4 L Hct 25.1 L MCV MCH MCHC RDW 21.8 H Plt Count Lymph % (Auto) [place] % (Auto) [place] # Seg Neutrophils % Seg Neuts % (Manual) Lymphocytes % (Manual) 4.5 L Monocytes % (Manual) Nucleated RBC % Seg Neutrophils # Seg Neutrophils # Man 31.9 H Lymphocytes # (Manual) Monocytes # (Manual) 1.2 H Eosinophils # (Manual) Basophils # (Manual) PT INR POC ABG pH ABG pH POC ABG pCO2 POC ABG pO2 ABG pO2 ABG O2 Saturation ABG Base Excess ABG Hemoglobin Oxyhemoglobin Sodium Potassium Chloride Carbon Dioxide BUN 61 H Creatinine 2.6 H Glucose 184 H POC Glucose 146 H Calcium Phosphorus 4.90 H D Magnesium Iron TIBC Ferritin Total Bilirubin AST ALT Alkaline Phosphatase Total Creatine Kinase Troponin T C-Reactive Protein Total Protein Albumin Triglycerides HDL Cholesterol Miscellaneous Test Crossmatch 08/27/17 08/27/17 08/27/17 07:01 09:17 12:52 WBC RBC Hgb Hct MCV MCH MCHC RDW Plt Count Lymph % (Auto) [place] % (Auto) [place] # Seg Neutrophils % Seg Neuts % (Manual) Lymphocytes % (Manual) Monocytes % (Manual) Nucleated RBC % Seg Neutrophils # Seg Neutrophils # Man Lymphocytes # (Manual) Monocytes # (Manual) Eosinophils # (Manual) Basophils # (Manual) PT INR POC ABG pH ABG pH POC ABG pCO2 POC ABG pO2 ABG pO2 ABG O2 Saturation ABG Base Excess ABG Hemoglobin Oxyhemoglobin Sodium Potassium Chloride Carbon Dioxide BUN Creatinine Glucose POC Glucose 165 H 198 H 218 H Calcium Phosphorus Magnesium Iron TIBC Ferritin Total Bilirubin AST ALT Alkaline Phosphatase Total Creatine Kinase Troponin T C-Reactive Protein Total Protein Albumin Triglycerides HDL Cholesterol Miscellaneous Test Crossmatch 08/27/17 08/28/17 08/28/17 17:27 02:13 06:46 WBC RBC Hgb Hct MCV MCH MCHC RDW Plt Count Lymph % (Auto) [place] % (Auto) [place] # Seg Neutrophils % Seg Neuts % (Manual) Lymphocytes % (Manual) Monocytes % (Manual) Nucleated RBC % Seg Neutrophils # Seg Neutrophils # Man Lymphocytes # (Manual) Monocytes # (Manual) Eosinophils # (Manual) Basophils # (Manual) PT INR POC ABG pH ABG pH POC ABG pCO2 POC ABG pO2 ABG pO2 ABG O2 Saturation ABG Base Excess ABG Hemoglobin Oxyhemoglobin Sodium Potassium Chloride Carbon Dioxide BUN Creatinine Glucose POC Glucose 151 H 155 H 230 H Calcium Phosphorus Magnesium Iron TIBC Ferritin Total Bilirubin AST ALT Alkaline Phosphatase Total Creatine Kinase Troponin T C-Reactive Protein Total Protein Albumin Triglycerides HDL Cholesterol Miscellaneous Test Crossmatch 08/28/17 08/28/17 08/28/17 06:53 06:53 08:19 WBC 31.1 H RBC 2.26 L Hgb 6.8 L Hct 20.9 L MCV MCH MCHC RDW 21.7 H Plt Count Lymph % (Auto) [place] % (Auto) [place] # Seg Neutrophils % Seg Neuts % (Manual) 83.0 H Lymphocytes % (Manual) 4.0 L Monocytes % (Manual) Nucleated RBC % Seg Neutrophils # Seg Neutrophils # Man 25.8 H Lymphocytes # (Manual) Monocytes # (Manual) Eosinophils # (Manual) Basophils # (Manual) PT INR POC ABG pH ABG pH POC ABG pCO2 POC ABG pO2 ABG pO2 ABG O2 Saturation ABG Base Excess ABG Hemoglobin Oxyhemoglobin Sodium Potassium Chloride Carbon Dioxide BUN 81 H Creatinine 3.4 H Glucose 218 H POC Glucose 239 H Calcium Phosphorus 4.90 H Magnesium Iron TIBC Ferritin Total Bilirubin AST ALT Alkaline Phosphatase Total Creatine Kinase Troponin T C-Reactive Protein Total Protein Albumin Triglycerides HDL Cholesterol Miscellaneous Test Crossmatch 08/28/17 08/28/17 08/28/17 11:56 13:05 13:29 WBC RBC Hgb Hct MCV MCH MCHC RDW Plt Count Lymph % (Auto) [place] % (Auto) [place] # Seg Neutrophils % Seg Neuts % (Manual) Lymphocytes % (Manual) Monocytes % (Manual) Nucleated RBC % Seg Neutrophils # Seg Neutrophils # Man Lymphocytes # (Manual) Monocytes # (Manual) Eosinophils # (Manual) Basophils # (Manual) PT 16.7 H INR 1.29 H POC ABG pH ABG pH POC ABG pCO2 POC ABG pO2 338 H ABG pO2 ABG O2 Saturation ABG Base Excess ABG Hemoglobin Oxyhemoglobin Sodium Potassium Chloride Carbon Dioxide BUN Creatinine Glucose POC Glucose Calcium Phosphorus Magnesium Iron TIBC Ferritin Total Bilirubin AST ALT Alkaline Phosphatase Total Creatine Kinase Troponin T C-Reactive Protein Total Protein Albumin Triglycerides HDL Cholesterol Miscellaneous Test Crossmatch See Detail 08/28/17 08/28/17 08/29/17 16:22 19:20 04:24 WBC RBC Hgb Hct MCV MCH MCHC RDW Plt Count Lymph % (Auto) [place] % (Auto) [place] # Seg Neutrophils % Seg Neuts % (Manual) Lymphocytes % (Manual) Monocytes % (Manual) Nucleated RBC % Seg Neutrophils # Seg Neutrophils # Man Lymphocytes # (Manual) Monocytes # (Manual) Eosinophils # (Manual) Basophils # (Manual) PT INR POC ABG pH 7.469 H ABG pH POC ABG pCO2 POC ABG pO2 240 H ABG pO2 ABG O2 Saturation ABG Base Excess ABG Hemoglobin Oxyhemoglobin Sodium Potassium Chloride Carbon Dioxide BUN Creatinine Glucose POC Glucose 209 H 195 H Calcium Phosphorus Magnesium Iron TIBC Ferritin Total Bilirubin AST ALT Alkaline Phosphatase Total Creatine Kinase Troponin T C-Reactive Protein Total Protein Albumin Triglycerides HDL Cholesterol Miscellaneous Test Crossmatch 08/29/17 08/29/17 08/29/17 04:30 04:30 12:07 WBC 44.9 H* RBC Hgb Hct MCV MCH MCHC RDW 23.1 H Plt Count Lymph % (Auto) [place] % (Auto) [place] # Seg Neutrophils % Seg Neuts % (Manual) 38.0 L Lymphocytes % (Manual) 10.0 L Monocytes % (Manual) 10.0 H Nucleated RBC % 6.0 H Seg Neutrophils # Seg Neutrophils # Man 17.1 H Lymphocytes # (Manual) Monocytes # (Manual) 4.5 H Eosinophils # (Manual) Basophils # (Manual) PT INR POC ABG pH ABG pH POC ABG pCO2 POC ABG pO2 ABG pO2 ABG O2 Saturation ABG Base Excess ABG Hemoglobin Oxyhemoglobin Sodium Potassium Chloride Carbon Dioxide BUN 61 H Creatinine 2.4 H Glucose 226 H POC Glucose 200 H Calcium Phosphorus Magnesium Iron TIBC Ferritin Total Bilirubin AST ALT Alkaline Phosphatase Total Creatine Kinase Troponin T C-Reactive Protein Total Protein Albumin Triglycerides HDL Cholesterol Miscellaneous Test Crossmatch 08/29/17 08/29/17 08/29/17 12:30 12:30 17:23 WBC RBC Hgb Hct MCV MCH MCHC RDW Plt Count Lymph % (Auto) [place] % (Auto) [place] # Seg Neutrophils % Seg Neuts % (Manual) Lymphocytes % (Manual) Monocytes % (Manual) Nucleated RBC % Seg Neutrophils # Seg Neutrophils # Man Lymphocytes # (Manual) Monocytes # (Manual) Eosinophils # (Manual) Basophils # (Manual) PT INR POC ABG pH ABG pH POC ABG pCO2 POC ABG pO2 ABG pO2 ABG O2 Saturation ABG Base Excess ABG Hemoglobin Oxyhemoglobin Sodium Potassium Chloride Carbon Dioxide BUN Creatinine Glucose POC Glucose 270 H Calcium Phosphorus Magnesium Iron TIBC Ferritin Total Bilirubin AST ALT Alkaline Phosphatase Total Creatine Kinase Troponin T C-Reactive Protein 19.10 H Total Protein Albumin Triglycerides HDL Cholesterol Miscellaneous Test Flexitest 1 H Crossmatch 08/30/17 08/30/17 08/30/17 00:10 01:30 03:31 WBC RBC Hgb Hct MCV MCH MCHC RDW Plt Count Lymph % (Auto) [place] % (Auto) [place] # Seg Neutrophils % Seg Neuts % (Manual) Lymphocytes % (Manual) Monocytes % (Manual) Nucleated RBC % Seg Neutrophils # Seg Neutrophils # Man Lymphocytes # (Manual) Monocytes # (Manual) Eosinophils # (Manual) Basophils # (Manual) PT INR POC ABG pH 7.168 L 7.335 L ABG pH POC ABG pCO2 72.8 H POC ABG pO2 257 H 117 H ABG pO2 ABG O2 Saturation ABG Base Excess ABG Hemoglobin Oxyhemoglobin Sodium Potassium Chloride Carbon Dioxide BUN Creatinine Glucose POC Glucose 245 H Calcium Phosphorus Magnesium Iron TIBC Ferritin Total Bilirubin AST ALT Alkaline Phosphatase Total Creatine Kinase Troponin T C-Reactive Protein Total Protein Albumin Triglycerides HDL Cholesterol Miscellaneous Test Crossmatch 08/30/17 08/30/17 08/30/17 05:20 05:20 05:20 WBC 40.9 H* RBC 3.64 L Hgb Hct MCV MCH MCHC RDW 24.3 H Plt Count Lymph % (Auto) [place] % (Auto) [place] # Seg Neutrophils % Seg Neuts % (Manual) 80.0 H Lymphocytes % (Manual) 3.0 L Monocytes % (Manual) Nucleated RBC % 1.0 H Seg Neutrophils # Seg Neutrophils # Man 32.7 H Lymphocytes # (Manual) Monocytes # (Manual) Eosinophils # (Manual) Basophils # (Manual) PT INR POC ABG pH ABG pH POC ABG pCO2 POC ABG pO2 ABG pO2 ABG O2 Saturation ABG Base Excess ABG Hemoglobin Oxyhemoglobin Sodium Potassium Chloride Carbon Dioxide BUN 83 H Creatinine 2.9 H Glucose 334 H POC Glucose 309 H Calcium Phosphorus Magnesium Iron TIBC Ferritin Total Bilirubin AST ALT Alkaline Phosphatase Total Creatine Kinase Troponin T C-Reactive Protein Total Protein Albumin Triglycerides HDL Cholesterol Miscellaneous Test Crossmatch 08/30/17 08/30/17 08/31/17 12:18 17:36 00:17 WBC RBC Hgb Hct MCV MCH MCHC RDW Plt Count Lymph % (Auto) [place] % (Auto) [place] # Seg Neutrophils % Seg Neuts % (Manual) Lymphocytes % (Manual) Monocytes % (Manual) Nucleated RBC % Seg Neutrophils # Seg Neutrophils # Man Lymphocytes # (Manual) Monocytes # (Manual) Eosinophils # (Manual) Basophils # (Manual) PT INR POC ABG pH ABG pH POC ABG pCO2 POC ABG pO2 ABG pO2 ABG O2 Saturation ABG Base Excess ABG Hemoglobin Oxyhemoglobin Sodium Potassium Chloride Carbon Dioxide BUN Creatinine Glucose POC Glucose 273 H 293 H 360 H Calcium Phosphorus Magnesium Iron TIBC Ferritin Total Bilirubin AST ALT Alkaline Phosphatase Total Creatine Kinase Troponin T C-Reactive Protein Total Protein Albumin Triglycerides HDL Cholesterol Miscellaneous Test Crossmatch 08/31/17 08/31/17 08/31/17 05:30 05:30 05:32 WBC 29.9 H RBC 2.89 L Hgb 8.2 L Hct 24.7 L D MCV MCH MCHC RDW 24.4 H Plt Count Lymph % (Auto) [place] % (Auto) [place] # Seg Neutrophils % Seg Neuts % (Manual) Lymphocytes % (Manual) 2.0 L Monocytes % (Manual) Nucleated RBC % 2.0 H Seg Neutrophils # Seg Neutrophils # Man 18.5 H Lymphocytes # (Manual) 0.6 L Monocytes # (Manual) 0.9 H Eosinophils # (Manual) Basophils # (Manual) PT INR POC ABG pH ABG pH POC ABG pCO2 POC ABG pO2 ABG pO2 ABG O2 Saturation ABG Base Excess ABG Hemoglobin Oxyhemoglobin Sodium Potassium Chloride Carbon Dioxide BUN 62 H Creatinine 2.2 H Glucose 245 H POC Glucose 257 H Calcium Phosphorus 2.10 L D Magnesium 1.60 L Iron TIBC Ferritin Total Bilirubin AST ALT Alkaline Phosphatase Total Creatine Kinase Troponin T C-Reactive Protein Total Protein Albumin Triglycerides HDL Cholesterol Miscellaneous Test Crossmatch 08/31/17 08/31/17 08/31/17 11:56 12:05 18:14 WBC 32.5 H RBC 3.19 L Hgb 8.8 L Hct 27.9 L MCV MCH MCHC RDW 24.9 H Plt Count Lymph % (Auto) [place] % (Auto) [place] # Seg Neutrophils % Seg Neuts % (Manual) Lymphocytes % (Manual) 1.0 L Monocytes % (Manual) 12.0 H Nucleated RBC % 1.0 H Seg Neutrophils # Seg Neutrophils # Man 13.3 H Lymphocytes # (Manual) 0.3 L Monocytes # (Manual) 3.9 H Eosinophils # (Manual) Basophils # (Manual) PT INR POC ABG pH ABG pH POC ABG pCO2 POC ABG pO2 ABG pO2 ABG O2 Saturation ABG Base Excess ABG Hemoglobin Oxyhemoglobin Sodium Potassium Chloride Carbon Dioxide BUN Creatinine Glucose POC Glucose 245 H Calcium Phosphorus Magnesium Iron TIBC Ferritin Total Bilirubin AST ALT Alkaline Phosphatase Total Creatine Kinase Troponin T C-Reactive Protein Total Protein Albumin Triglycerides HDL Cholesterol Miscellaneous Test Crossmatch See Detail 08/31/17 08/31/17 08/31/17 18:14 18:15 18:22 WBC RBC Hgb Hct MCV MCH MCHC RDW Plt Count Lymph % (Auto) [place] % (Auto) [place] # Seg Neutrophils % Seg Neuts % (Manual) Lymphocytes % (Manual) Monocytes % (Manual) Nucleated RBC % Seg Neutrophils # Seg Neutrophils # Man Lymphocytes # (Manual) Monocytes # (Manual) Eosinophils # (Manual) Basophils # (Manual) PT 15.1 H INR POC ABG pH ABG pH POC ABG pCO2 POC ABG pO2 ABG pO2 ABG O2 Saturation ABG Base Excess ABG Hemoglobin Oxyhemoglobin Sodium 136 L Potassium Chloride Carbon Dioxide 21 L BUN 69 H Creatinine 2.3 H Glucose 227 H POC Glucose 240 H Calcium Phosphorus 2.40 L Magnesium 1.50 L Iron TIBC Ferritin Total Bilirubin AST 143 H ALT 114 H Alkaline Phosphatase 267 H Total Creatine Kinase Troponin T C-Reactive Protein Total Protein 4.1 L Albumin 1.8 L Triglycerides HDL Cholesterol Miscellaneous Test Crossmatch 08/31/17 09/01/17 09/01/17 23:53 05:00 05:00 WBC 33.9 H RBC 2.85 L Hgb 7.8 L Hct 24.8 L MCV MCH 27 L MCHC RDW 23.9 H Plt Count Lymph % (Auto) [place] % (Auto) [place] # Seg Neutrophils % Seg Neuts % (Manual) Lymphocytes % (Manual) 5.0 L Monocytes % (Manual) Nucleated RBC % Seg Neutrophils # Seg Neutrophils # Man 23.1 H Lymphocytes # (Manual) Monocytes # (Manual) Eosinophils # (Manual) Basophils # (Manual) PT INR POC ABG pH ABG pH POC ABG pCO2 POC ABG pO2 ABG pO2 ABG O2 Saturation ABG Base Excess ABG Hemoglobin Oxyhemoglobin Sodium Potassium Chloride Carbon Dioxide BUN 51 H Creatinine 1.8 H Glucose 195 H POC Glucose 301 H Calcium Phosphorus 1.70 L D Magnesium 1.60 L Iron TIBC Ferritin Total Bilirubin AST 80 H ALT 82 H Alkaline Phosphatase 243 H Total Creatine Kinase Troponin T C-Reactive Protein Total Protein 4.2 L Albumin 1.7 L Triglycerides HDL Cholesterol Miscellaneous Test Crossmatch 09/01/17 09/01/17 09/01/17 05:20 05:47 11:37 WBC RBC Hgb Hct MCV MCH MCHC RDW Plt Count Lymph % (Auto) [place] % (Auto) [place] # Seg Neutrophils % Seg Neuts % (Manual) Lymphocytes % (Manual) Monocytes % (Manual) Nucleated RBC % Seg Neutrophils # Seg Neutrophils # Man Lymphocytes # (Manual) Monocytes # (Manual) Eosinophils # (Manual) Basophils # (Manual) PT INR POC ABG pH ABG pH 7.348 L POC ABG pCO2 POC ABG pO2 ABG pO2 70.2 L ABG O2 Saturation ABG Base Excess ABG Hemoglobin 7.5 L Oxyhemoglobin Sodium Potassium Chloride Carbon Dioxide BUN Creatinine Glucose POC Glucose 230 H 254 H Calcium Phosphorus Magnesium Iron TIBC Ferritin Total Bilirubin AST ALT Alkaline Phosphatase Total Creatine Kinase Troponin T C-Reactive Protein Total Protein Albumin Triglycerides HDL Cholesterol Miscellaneous Test Crossmatch 09/01/17 09/01/17 09/02/17 17:39 23:14 04:55 WBC RBC Hgb Hct MCV MCH MCHC RDW Plt Count Lymph % (Auto) [place] % (Auto) [place] # Seg Neutrophils % Seg Neuts % (Manual) Lymphocytes % (Manual) Monocytes % (Manual) Nucleated RBC % Seg Neutrophils # Seg Neutrophils # Man Lymphocytes # (Manual) Monocytes # (Manual) Eosinophils # (Manual) Basophils # (Manual) PT INR POC ABG pH ABG pH POC ABG pCO2 POC ABG pO2 ABG pO2 124.8 H ABG O2 Saturation ABG Base Excess -2.9 L ABG Hemoglobin 5.8 L Oxyhemoglobin Sodium Potassium Chloride Carbon Dioxide BUN Creatinine Glucose POC Glucose 297 H 291 H Calcium Phosphorus Magnesium Iron TIBC Ferritin Total Bilirubin AST ALT Alkaline Phosphatase Total Creatine Kinase Troponin T C-Reactive Protein Total Protein Albumin Triglycerides HDL Cholesterol Miscellaneous Test Crossmatch 09/02/17 09/02/17 09/02/17 05:31 06:10 11:58 WBC RBC Hgb Hct MCV MCH MCHC RDW Plt Count Lymph % (Auto) [place] % (Auto) [place] # Seg Neutrophils % Seg Neuts % (Manual) Lymphocytes % (Manual) Monocytes % (Manual) Nucleated RBC % Seg Neutrophils # Seg Neutrophils # Man Lymphocytes # (Manual) Monocytes # (Manual) Eosinophils # (Manual) Basophils # (Manual) PT INR POC ABG pH ABG pH POC ABG pCO2 POC ABG pO2 ABG pO2 ABG O2 Saturation ABG Base Excess ABG Hemoglobin Oxyhemoglobin Sodium Potassium Chloride Carbon Dioxide BUN 68 H Creatinine 2.2 H Glucose 369 H POC Glucose 245 H 333 H Calcium 8.2 L Phosphorus Magnesium Iron TIBC Ferritin Total Bilirubin AST ALT Alkaline Phosphatase Total Creatine Kinase Troponin T C-Reactive Protein Total Protein Albumin Triglycerides HDL Cholesterol Miscellaneous Test Crossmatch 09/02/17 09/02/17 09/03/17 15:37 23:50 04:00 WBC RBC Hgb Hct MCV MCH MCHC RDW Plt Count Lymph % (Auto) [place] % (Auto) [place] # Seg Neutrophils % Seg Neuts % (Manual) Lymphocytes % (Manual) Monocytes % (Manual) Nucleated RBC % Seg Neutrophils # Seg Neutrophils # Man Lymphocytes # (Manual) Monocytes # (Manual) Eosinophils # (Manual) Basophils # (Manual) PT INR POC ABG pH ABG pH POC ABG pCO2 POC ABG pO2 ABG pO2 ABG O2 Saturation ABG Base Excess ABG Hemoglobin Oxyhemoglobin Sodium Potassium Chloride Carbon Dioxide BUN 59 H Creatinine 1.9 H Glucose 231 H POC Glucose 314 H 240 H Calcium 8.0 L Phosphorus Magnesium Iron TIBC Ferritin Total Bilirubin AST ALT Alkaline Phosphatase 265 H Total Creatine Kinase Troponin T C-Reactive Protein Total Protein 4.4 L Albumin 1.7 L Triglycerides 180 H HDL Cholesterol Miscellaneous Test Crossmatch 09/03/17 09/03/17 09/03/17 05:00 05:32 11:52 WBC 41.5 H* RBC 2.46 L Hgb 6.9 L Hct 21.3 L MCV MCH MCHC RDW 24.9 H Plt Count Lymph % (Auto) [place] % (Auto) [place] # Seg Neutrophils % Seg Neuts % (Manual) Lymphocytes % (Manual) 3.0 L Monocytes % (Manual) 9.5 H Nucleated RBC % 1.5 H Seg Neutrophils # Seg Neutrophils # Man 28.8 H Lymphocytes # (Manual) Monocytes # (Manual) 3.9 H Eosinophils # (Manual) Basophils # (Manual) PT INR POC ABG pH ABG pH POC ABG pCO2 POC ABG pO2 ABG pO2 ABG O2 Saturation ABG Base Excess ABG Hemoglobin Oxyhemoglobin Sodium Potassium Chloride Carbon Dioxide BUN Creatinine Glucose POC Glucose 188 H 285 H Calcium Phosphorus Magnesium Iron TIBC Ferritin Total Bilirubin AST ALT Alkaline Phosphatase Total Creatine Kinase Troponin T C-Reactive Protein Total Protein Albumin Triglycerides HDL Cholesterol Miscellaneous Test Crossmatch 09/03/17 09/03/17 09/03/17 16:55 17:44 23:56 WBC RBC Hgb Hct MCV MCH MCHC RDW Plt Count Lymph % (Auto) [place] % (Auto) [place] # Seg Neutrophils % Seg Neuts % (Manual) Lymphocytes % (Manual) Monocytes % (Manual) Nucleated RBC % Seg Neutrophils # Seg Neutrophils # Man Lymphocytes # (Manual) Monocytes # (Manual) Eosinophils # (Manual) Basophils # (Manual) PT INR POC ABG pH ABG pH POC ABG pCO2 POC ABG pO2 ABG pO2 ABG O2 Saturation ABG Base Excess ABG Hemoglobin Oxyhemoglobin Sodium Potassium Chloride Carbon Dioxide BUN Creatinine Glucose POC Glucose 217 H 193 H Calcium Phosphorus Magnesium Iron TIBC Ferritin Total Bilirubin AST ALT Alkaline Phosphatase Total Creatine Kinase Troponin T C-Reactive Protein Total Protein Albumin Triglycerides HDL Cholesterol Miscellaneous Test Crossmatch See Detail 09/03/17 09/04/17 09/04/17 Unknown 03:47 04:32 WBC 44.7 H* RBC 3.12 L Hgb 8.7 L Hct 26.7 L MCV MCH MCHC RDW 23.5 H Plt Count Lymph % (Auto) [place] % (Auto) [place] # Seg Neutrophils % Seg Neuts % (Manual) Lymphocytes % (Manual) 4.0 L Monocytes % (Manual) Nucleated RBC % 2.0 H Seg Neutrophils # Seg Neutrophils # Man 30.8 H Lymphocytes # (Manual) Monocytes # (Manual) 2.2 H Eosinophils # (Manual) Basophils # (Manual) PT INR POC ABG pH ABG pH POC ABG pCO2 POC ABG pO2 ABG pO2 133.4 H 135.0 H ABG O2 Saturation ABG Base Excess -2.5 L ABG Hemoglobin 5.8 L 7.9 L Oxyhemoglobin Sodium Potassium Chloride Carbon Dioxide BUN Creatinine Glucose POC Glucose Calcium Phosphorus Magnesium Iron TIBC Ferritin Total Bilirubin AST ALT Alkaline Phosphatase Total Creatine Kinase Troponin T C-Reactive Protein Total Protein Albumin Triglycerides HDL Cholesterol Miscellaneous Test Crossmatch 09/04/17 09/04/17 09/04/17 04:32 05:48 10:43 WBC RBC Hgb Hct MCV MCH MCHC RDW Plt Count Lymph % (Auto) [place] % (Auto) [place] # Seg Neutrophils % Seg Neuts % (Manual) Lymphocytes % (Manual) Monocytes % (Manual) Nucleated RBC % Seg Neutrophils # Seg Neutrophils # Man Lymphocytes # (Manual) Monocytes # (Manual) Eosinophils # (Manual) Basophils # (Manual) PT INR POC ABG pH ABG pH POC ABG pCO2 POC ABG pO2 ABG pO2 ABG O2 Saturation ABG Base Excess ABG Hemoglobin Oxyhemoglobin Sodium 136 L Potassium 5.2 H D Chloride 94.2 L Carbon Dioxide BUN 71 H Creatinine 2.3 H Glucose 235 H POC Glucose 329 H Calcium 8.3 L Phosphorus Magnesium Iron TIBC Ferritin Total Bilirubin AST ALT Alkaline Phosphatase Total Creatine Kinase Troponin T C-Reactive Protein Total Protein Albumin Triglycerides HDL Cholesterol Miscellaneous Test Flexitest 1 H Crossmatch 09/04/17 09/04/17 09/05/17 12:38 17:30 00:15 WBC RBC Hgb Hct MCV MCH MCHC RDW Plt Count Lymph % (Auto) [place] % (Auto) [place] # Seg Neutrophils % Seg Neuts % (Manual) Lymphocytes % (Manual) Monocytes % (Manual) Nucleated RBC % Seg Neutrophils # Seg Neutrophils # Man Lymphocytes # (Manual) Monocytes # (Manual) Eosinophils # (Manual) Basophils # (Manual) PT INR POC ABG pH ABG pH POC ABG pCO2 POC ABG pO2 ABG pO2 ABG O2 Saturation ABG Base Excess ABG Hemoglobin Oxyhemoglobin Sodium Potassium Chloride Carbon Dioxide BUN Creatinine Glucose POC Glucose 444 H 331 H 362 H Calcium Phosphorus Magnesium Iron TIBC Ferritin Total Bilirubin AST ALT Alkaline Phosphatase Total Creatine Kinase Troponin T C-Reactive Protein Total Protein Albumin Triglycerides HDL Cholesterol Miscellaneous Test Crossmatch 09/05/17 09/05/17 09/05/17 03:55 03:55 12:12 WBC 35.3 H RBC 2.87 L Hgb 8.1 L Hct 24.6 L MCV MCH MCHC RDW 23.3 H Plt Count Lymph % (Auto) [place] % (Auto) [place] # Seg Neutrophils % Seg Neuts % (Manual) 89.5 H Lymphocytes % (Manual) 3.0 L Monocytes % (Manual) Nucleated RBC % 2.5 H Seg Neutrophils # Seg Neutrophils # Man 31.6 H Lymphocytes # (Manual) 1.1 L Monocytes # (Manual) Eosinophils # (Manual) Basophils # (Manual) PT INR POC ABG pH ABG pH POC ABG pCO2 POC ABG pO2 ABG pO2 ABG O2 Saturation ABG Base Excess ABG Hemoglobin Oxyhemoglobin Sodium 136 L Potassium Chloride 94.7 L Carbon Dioxide BUN 55 H Creatinine 1.8 H Glucose 193 H POC Glucose 344 H Calcium 8.1 L Phosphorus Magnesium Iron TIBC Ferritin Total Bilirubin AST ALT Alkaline Phosphatase Total Creatine Kinase Troponin T C-Reactive Protein Total Protein Albumin Triglycerides HDL Cholesterol Miscellaneous Test Crossmatch 09/05/17 09/05/17 09/05/17 14:32 15:32 16:41 WBC RBC Hgb Hct MCV MCH MCHC RDW Plt Count Lymph % (Auto) [place] % (Auto) [place] # Seg Neutrophils % Seg Neuts % (Manual) Lymphocytes % (Manual) Monocytes % (Manual) Nucleated RBC % Seg Neutrophils # Seg Neutrophils # Man Lymphocytes # (Manual) Monocytes # (Manual) Eosinophils # (Manual) Basophils # (Manual) PT INR POC ABG pH ABG pH POC ABG pCO2 POC ABG pO2 ABG pO2 ABG O2 Saturation ABG Base Excess ABG Hemoglobin Oxyhemoglobin Sodium Potassium Chloride Carbon Dioxide BUN Creatinine Glucose POC Glucose 265 H 145 H 188 H Calcium Phosphorus Magnesium Iron TIBC Ferritin Total Bilirubin AST ALT Alkaline Phosphatase Total Creatine Kinase Troponin T C-Reactive Protein Total Protein Albumin Triglycerides HDL Cholesterol Miscellaneous Test Crossmatch 09/05/17 09/05/17 09/05/17 17:28 18:38 20:10 WBC RBC Hgb Hct MCV MCH MCHC RDW Plt Count Lymph % (Auto) [place] % (Auto) [place] # Seg Neutrophils % Seg Neuts % (Manual) Lymphocytes % (Manual) Monocytes % (Manual) Nucleated RBC % Seg Neutrophils # Seg Neutrophils # Man Lymphocytes # (Manual) Monocytes # (Manual) Eosinophils # (Manual) Basophils # (Manual) PT INR POC ABG pH ABG pH POC ABG pCO2 POC ABG pO2 ABG pO2 ABG O2 Saturation ABG Base Excess ABG Hemoglobin Oxyhemoglobin Sodium Potassium Chloride Carbon Dioxide BUN Creatinine Glucose POC Glucose 246 H 271 H 165 H Calcium Phosphorus Magnesium Iron TIBC Ferritin Total Bilirubin AST ALT Alkaline Phosphatase Total Creatine Kinase Troponin T C-Reactive Protein Total Protein Albumin Triglycerides HDL Cholesterol Miscellaneous Test Crossmatch 09/05/17 09/05/17 09/06/17 21:06 23:07 00:10 WBC RBC Hgb Hct MCV MCH MCHC RDW Plt Count Lymph % (Auto) [place] % (Auto) [place] # Seg Neutrophils % Seg Neuts % (Manual) Lymphocytes % (Manual) Monocytes % (Manual) Nucleated RBC % Seg Neutrophils # Seg Neutrophils # Man Lymphocytes # (Manual) Monocytes # (Manual) Eosinophils # (Manual) Basophils # (Manual) PT INR POC ABG pH ABG pH POC ABG pCO2 POC ABG pO2 ABG pO2 ABG O2 Saturation ABG Base Excess ABG Hemoglobin Oxyhemoglobin Sodium Potassium Chloride Carbon Dioxide BUN Creatinine Glucose POC Glucose 134 H 135 H 147 H Calcium Phosphorus Magnesium Iron TIBC Ferritin Total Bilirubin AST ALT Alkaline Phosphatase Total Creatine Kinase Troponin T C-Reactive Protein Total Protein Albumin Triglycerides HDL Cholesterol Miscellaneous Test Crossmatch 09/06/17 09/06/17 09/06/17 01:08 02:01 03:08 WBC RBC Hgb Hct MCV MCH MCHC RDW Plt Count Lymph % (Auto) [place] % (Auto) [place] # Seg Neutrophils % Seg Neuts % (Manual) Lymphocytes % (Manual) Monocytes % (Manual) Nucleated RBC % Seg Neutrophils # Seg Neutrophils # Man Lymphocytes # (Manual) Monocytes # (Manual) Eosinophils # (Manual) Basophils # (Manual) PT INR POC ABG pH ABG pH POC ABG pCO2 POC ABG pO2 ABG pO2 ABG O2 Saturation ABG Base Excess ABG Hemoglobin Oxyhemoglobin Sodium Potassium Chloride Carbon Dioxide BUN Creatinine Glucose POC Glucose 133 H 146 H 135 H Calcium Phosphorus Magnesium Iron TIBC Ferritin Total Bilirubin AST ALT Alkaline Phosphatase Total Creatine Kinase Troponin T C-Reactive Protein Total Protein Albumin Triglycerides HDL Cholesterol Miscellaneous Test Crossmatch 09/06/17 09/06/17 09/06/17 05:30 05:30 05:30 WBC 38.6 H RBC 2.95 L Hgb 8.3 L Hct 25.3 L MCV MCH MCHC RDW 22.2 H Plt Count Lymph % (Auto) [place] % (Auto) [place] # Seg Neutrophils % Seg Neuts % (Manual) Lymphocytes % (Manual) 2.0 L Monocytes % (Manual) Nucleated RBC % 5.0 H Seg Neutrophils # Seg Neutrophils # Man 25.9 H Lymphocytes # (Manual) 0.8 L Monocytes # (Manual) 1.9 H Eosinophils # (Manual) Basophils # (Manual) PT INR POC ABG pH ABG pH POC ABG pCO2 POC ABG pO2 ABG pO2 ABG O2 Saturation ABG Base Excess ABG Hemoglobin Oxyhemoglobin Sodium 135 L Potassium Chloride 93.5 L Carbon Dioxide BUN 82 H Creatinine 2.3 H Glucose 148 H POC Glucose Calcium Phosphorus Magnesium Iron TIBC Ferritin Total Bilirubin AST ALT Alkaline Phosphatase Total Creatine Kinase Troponin T C-Reactive Protein 2.80 H Total Protein Albumin Triglycerides HDL Cholesterol Miscellaneous Test Crossmatch 09/06/17 09/06/17 09/06/17 05:48 08:04 09:06 WBC RBC Hgb Hct MCV MCH MCHC RDW Plt Count Lymph % (Auto) [place] % (Auto) [place] # Seg Neutrophils % Seg Neuts % (Manual) Lymphocytes % (Manual) Monocytes % (Manual) Nucleated RBC % Seg Neutrophils # Seg Neutrophils # Man Lymphocytes # (Manual) Monocytes # (Manual) Eosinophils # (Manual) Basophils # (Manual) PT INR POC ABG pH ABG pH POC ABG pCO2 POC ABG pO2 ABG pO2 ABG O2 Saturation ABG Base Excess ABG Hemoglobin Oxyhemoglobin Sodium Potassium Chloride Carbon Dioxide BUN Creatinine Glucose POC Glucose 152 H 164 H 172 H Calcium Phosphorus Magnesium Iron TIBC Ferritin Total Bilirubin AST ALT Alkaline Phosphatase Total Creatine Kinase Troponin T C-Reactive Protein Total Protein Albumin Triglycerides HDL Cholesterol Miscellaneous Test Crossmatch 09/06/17 09/06/17 09/06/17 09:57 10:19 10:57 WBC RBC Hgb Hct MCV MCH MCHC RDW Plt Count Lymph % (Auto) [place] % (Auto) [place] # Seg Neutrophils % Seg Neuts % (Manual) Lymphocytes % (Manual) Monocytes % (Manual) Nucleated RBC % Seg Neutrophils # Seg Neutrophils # Man Lymphocytes # (Manual) Monocytes # (Manual) Eosinophils # (Manual) Basophils # (Manual) PT INR POC ABG pH ABG pH POC ABG pCO2 POC ABG pO2 ABG pO2 ABG O2 Saturation ABG Base Excess ABG Hemoglobin Oxyhemoglobin Sodium Potassium Chloride Carbon Dioxide BUN Creatinine Glucose POC Glucose 186 H 162 H Calcium Phosphorus Magnesium Iron TIBC Ferritin Total Bilirubin AST ALT Alkaline Phosphatase Total Creatine Kinase Troponin T C-Reactive Protein Total Protein Albumin Triglycerides HDL Cholesterol Miscellaneous Test Flexitest 1 H Crossmatch 09/06/17 09/06/17 09/06/17 13:12 13:40 17:36 WBC RBC Hgb 8.9 L Hct 28.5 L MCV MCH MCHC RDW Plt Count Lymph % (Auto) [place] % (Auto) [place] # Seg Neutrophils % Seg Neuts % (Manual) Lymphocytes % (Manual) Monocytes % (Manual) Nucleated RBC % Seg Neutrophils # Seg Neutrophils # Man Lymphocytes # (Manual) Monocytes # (Manual) Eosinophils # (Manual) Basophils # (Manual) PT INR POC ABG pH ABG pH POC ABG pCO2 POC ABG pO2 ABG pO2 ABG O2 Saturation ABG Base Excess ABG Hemoglobin Oxyhemoglobin Sodium Potassium Chloride Carbon Dioxide BUN Creatinine Glucose POC Glucose 166 H 161 H Calcium Phosphorus Magnesium Iron TIBC Ferritin Total Bilirubin AST ALT Alkaline Phosphatase Total Creatine Kinase Troponin T C-Reactive Protein Total Protein Albumin Triglycerides HDL Cholesterol Miscellaneous Test Crossmatch 09/07/17 09/07/17 09/07/17 00:13 03:50 03:50 WBC 47.0 H* RBC 2.81 L Hgb 8.1 L Hct 24.1 L MCV MCH MCHC RDW 22.5 H Plt Count Lymph % (Auto) [place] % (Auto) [place] # Seg Neutrophils % Seg Neuts % (Manual) Lymphocytes % (Manual) 9.0 L Monocytes % (Manual) Nucleated RBC % 6.0 H Seg Neutrophils # Seg Neutrophils # Man 27.3 H Lymphocytes # (Manual) Monocytes # (Manual) 0.9 H Eosinophils # (Manual) 1.9 H Basophils # (Manual) PT INR POC ABG pH ABG pH POC ABG pCO2 POC ABG pO2 ABG pO2 ABG O2 Saturation ABG Base Excess ABG Hemoglobin Oxyhemoglobin Sodium 136 L Potassium Chloride 96.3 L Carbon Dioxide BUN 61 H Creatinine 1.7 H Glucose 132 H POC Glucose 183 H Calcium 7.8 L Phosphorus Magnesium Iron TIBC Ferritin Total Bilirubin AST ALT Alkaline Phosphatase Total Creatine Kinase Troponin T C-Reactive Protein Total Protein Albumin Triglycerides HDL Cholesterol Miscellaneous Test Crossmatch 09/07/17 09/07/17 09/07/17 05:12 05:23 11:48 WBC RBC Hgb Hct MCV MCH MCHC RDW Plt Count Lymph % (Auto) [place] % (Auto) [place] # Seg Neutrophils % Seg Neuts % (Manual) Lymphocytes % (Manual) Monocytes % (Manual) Nucleated RBC % Seg Neutrophils # Seg Neutrophils # Man Lymphocytes # (Manual) Monocytes # (Manual) Eosinophils # (Manual) Basophils # (Manual) PT INR POC ABG pH ABG pH POC ABG pCO2 POC ABG pO2 ABG pO2 ABG O2 Saturation ABG Base Excess ABG Hemoglobin 7.7 L Oxyhemoglobin 94.8 L Sodium Potassium Chloride Carbon Dioxide BUN Creatinine Glucose POC Glucose 162 H 200 H Calcium Phosphorus Magnesium Iron TIBC Ferritin Total Bilirubin AST ALT Alkaline Phosphatase Total Creatine Kinase Troponin T C-Reactive Protein Total Protein Albumin Triglycerides HDL Cholesterol Miscellaneous Test Crossmatch 09/07/17 09/07/17 09/08/17 17:07 18:21 00:06 WBC RBC Hgb Hct MCV MCH MCHC RDW Plt Count Lymph % (Auto) [place] % (Auto) [place] # Seg Neutrophils % Seg Neuts % (Manual) Lymphocytes % (Manual) Monocytes % (Manual) Nucleated RBC % Seg Neutrophils # Seg Neutrophils # Man Lymphocytes # (Manual) Monocytes # (Manual) Eosinophils # (Manual) Basophils # (Manual) PT INR POC ABG pH ABG pH POC ABG pCO2 POC ABG pO2 ABG pO2 ABG O2 Saturation ABG Base Excess ABG Hemoglobin Oxyhemoglobin Sodium Potassium Chloride Carbon Dioxide BUN Creatinine Glucose POC Glucose 181 H 168 H Calcium Phosphorus Magnesium Iron TIBC Ferritin Total Bilirubin AST ALT Alkaline Phosphatase Total Creatine Kinase Troponin T C-Reactive Protein Total Protein Albumin Triglycerides HDL Cholesterol Miscellaneous Test Crossmatch See Detail 09/08/17 09/08/17 09/08/17 04:05 04:05 04:41 WBC 49.7 H* RBC 2.58 L Hgb 7.3 L Hct 22.7 L MCV MCH MCHC RDW 22.5 H Plt Count Lymph % (Auto) [place] % (Auto) [place] # Seg Neutrophils % Seg Neuts % (Manual) 90.5 H Lymphocytes % (Manual) 1.5 L Monocytes % (Manual) Nucleated RBC % Seg Neutrophils # Seg Neutrophils # Man 45.0 H Lymphocytes # (Manual) 0.7 L Monocytes # (Manual) 1.7 H Eosinophils # (Manual) Basophils # (Manual) PT INR POC ABG pH ABG pH POC ABG pCO2 POC ABG pO2 ABG pO2 ABG O2 Saturation ABG Base Excess ABG Hemoglobin Oxyhemoglobin Sodium 132 L Potassium Chloride 92.1 L Carbon Dioxide BUN 82 H Creatinine 2.2 H Glucose 162 H POC Glucose 235 H Calcium 8.3 L Phosphorus 5.20 H D Magnesium Iron TIBC Ferritin Total Bilirubin AST ALT Alkaline Phosphatase 199 H Total Creatine Kinase Troponin T C-Reactive Protein Total Protein 4.5 L Albumin 1.7 L Triglycerides HDL Cholesterol Miscellaneous Test Crossmatch 09/08/17 09/08/17 09/08/17 09:21 11:52 17:38 WBC RBC Hgb Hct MCV MCH MCHC RDW Plt Count Lymph % (Auto) [place] % (Auto) [place] # Seg Neutrophils % Seg Neuts % (Manual) Lymphocytes % (Manual) Monocytes % (Manual) Nucleated RBC % Seg Neutrophils # Seg Neutrophils # Man Lymphocytes # (Manual) Monocytes # (Manual) Eosinophils # (Manual) Basophils # (Manual) PT INR POC ABG pH ABG pH POC ABG pCO2 POC ABG pO2 ABG pO2 218.5 H ABG O2 Saturation 99.3 H ABG Base Excess -3.5 L ABG Hemoglobin 7.7 L Oxyhemoglobin Sodium Potassium Chloride Carbon Dioxide BUN Creatinine Glucose POC Glucose 220 H 194 H Calcium Phosphorus Magnesium Iron TIBC Ferritin Total Bilirubin AST ALT Alkaline Phosphatase Total Creatine Kinase Troponin T C-Reactive Protein Total Protein Albumin Triglycerides HDL Cholesterol Miscellaneous Test Crossmatch 09/09/17 09/09/17 09/09/17 00:24 03:37 03:37 WBC 33.5 H RBC 2.36 L Hgb 6.7 L Hct 20.9 L MCV MCH MCHC RDW 22.7 H Plt Count Lymph % (Auto) [place] % (Auto) [place] # Seg Neutrophils % Seg Neuts % (Manual) Lymphocytes % (Manual) Monocytes % (Manual) Nucleated RBC % Seg Neutrophils # Seg Neutrophils # Man Lymphocytes # (Manual) Monocytes # (Manual) Eosinophils # (Manual) Basophils # (Manual) PT INR POC ABG pH ABG pH POC ABG pCO2 POC ABG pO2 ABG pO2 ABG O2 Saturation ABG Base Excess ABG Hemoglobin Oxyhemoglobin Sodium 132 L Potassium Chloride 91.6 L Carbon Dioxide 21 L BUN 101 H Creatinine 2.6 H Glucose 156 H POC Glucose 182 H Calcium 8.3 L Phosphorus 5.90 H Magnesium 2.60 H Iron TIBC Ferritin Total Bilirubin AST ALT Alkaline Phosphatase Total Creatine Kinase Troponin T C-Reactive Protein Total Protein Albumin Triglycerides HDL Cholesterol Miscellaneous Test Crossmatch 09/09/17 09/09/17 09/09/17 05:29 12:03 18:05 WBC RBC Hgb Hct MCV MCH MCHC RDW Plt Count Lymph % (Auto) [place] % (Auto) [place] # Seg Neutrophils % Seg Neuts % (Manual) Lymphocytes % (Manual) Monocytes % (Manual) Nucleated RBC % Seg Neutrophils # Seg Neutrophils # Man Lymphocytes # (Manual) Monocytes # (Manual) Eosinophils # (Manual) Basophils # (Manual) PT INR POC ABG pH ABG pH POC ABG pCO2 POC ABG pO2 ABG pO2 ABG O2 Saturation ABG Base Excess ABG Hemoglobin Oxyhemoglobin Sodium Potassium Chloride Carbon Dioxide BUN Creatinine Glucose POC Glucose 168 H 143 H 173 H Calcium Phosphorus Magnesium Iron TIBC Ferritin Total Bilirubin AST ALT Alkaline Phosphatase Total Creatine Kinase Troponin T C-Reactive Protein Total Protein Albumin Triglycerides HDL Cholesterol Miscellaneous Test Crossmatch 09/09/17 09/09/17 09/10/17 23:30 Unknown 05:04 WBC RBC Hgb Hct MCV MCH MCHC RDW Plt Count Lymph % (Auto) [place] % (Auto) [place] # Seg Neutrophils % Seg Neuts % (Manual) Lymphocytes % (Manual) Monocytes % (Manual) Nucleated RBC % Seg Neutrophils # Seg Neutrophils # Man Lymphocytes # (Manual) Monocytes # (Manual) Eosinophils # (Manual) Basophils # (Manual) PT INR POC ABG pH ABG pH 7.323 L POC ABG pCO2 POC ABG pO2 ABG pO2 94.1 H ABG O2 Saturation ABG Base Excess -4.8 L ABG Hemoglobin 8.0 L Oxyhemoglobin 94.9 L Sodium Potassium Chloride Carbon Dioxide BUN Creatinine Glucose POC Glucose 212 H 155 H Calcium Phosphorus Magnesium Iron TIBC Ferritin Total Bilirubin AST ALT Alkaline Phosphatase Total Creatine Kinase Troponin T C-Reactive Protein Total Protein Albumin Triglycerides HDL Cholesterol Miscellaneous Test Crossmatch 09/10/17 09/10/17 09/10/17 07:00 09:55 12:22 WBC 24.7 H RBC 2.62 L Hgb 7.5 L Hct 22.5 L MCV MCH MCHC RDW 20.8 H Plt Count Lymph % (Auto) [place] % (Auto) [place] # Seg Neutrophils % Seg Neuts % (Manual) Lymphocytes % (Manual) Monocytes % (Manual) Nucleated RBC % Seg Neutrophils # Seg Neutrophils # Man Lymphocytes # (Manual) Monocytes # (Manual) Eosinophils # (Manual) Basophils # (Manual) PT INR POC ABG pH ABG pH POC ABG pCO2 POC ABG pO2 ABG pO2 ABG O2 Saturation ABG Base Excess ABG Hemoglobin Oxyhemoglobin Sodium Potassium Chloride 97.9 L Carbon Dioxide BUN 78 H Creatinine 2.0 H Glucose 126 H POC Glucose 183 H Calcium 8.2 L Phosphorus Magnesium Iron TIBC Ferritin Total Bilirubin AST ALT Alkaline Phosphatase Total Creatine Kinase Troponin T C-Reactive Protein Total Protein Albumin Triglycerides HDL Cholesterol Miscellaneous Test Crossmatch 09/11/17 09/11/17 09/11/17 00:08 03:50 05:28 WBC 21.6 H RBC 2.52 L Hgb 7.4 L Hct 22.2 L MCV MCH MCHC RDW 21.5 H Plt Count Lymph % (Auto) [place] % (Auto) [place] # Seg Neutrophils % Seg Neuts % (Manual) 92.0 H Lymphocytes % (Manual) 3.0 L Monocytes % (Manual) Nucleated RBC % Seg Neutrophils # Seg Neutrophils # Man 19.9 H Lymphocytes # (Manual) 0.6 L Monocytes # (Manual) Eosinophils # (Manual) Basophils # (Manual) PT INR POC ABG pH ABG pH POC ABG pCO2 POC ABG pO2 ABG pO2 ABG O2 Saturation ABG Base Excess ABG Hemoglobin Oxyhemoglobin Sodium Potassium Chloride Carbon Dioxide BUN Creatinine Glucose POC Glucose 213 H 181 H Calcium Phosphorus Magnesium Iron TIBC Ferritin Total Bilirubin AST ALT Alkaline Phosphatase Total Creatine Kinase Troponin T C-Reactive Protein Total Protein Albumin Triglycerides HDL Cholesterol Miscellaneous Test Crossmatch 09/11/17 09/11/17 09/11/17 11:55 17:56 23:12 WBC RBC Hgb Hct MCV MCH MCHC RDW Plt Count Lymph % (Auto) [place] % (Auto) [place] # Seg Neutrophils % Seg Neuts % (Manual) Lymphocytes % (Manual) Monocytes % (Manual) Nucleated RBC % Seg Neutrophils # Seg Neutrophils # Man Lymphocytes # (Manual) Monocytes # (Manual) Eosinophils # (Manual) Basophils # (Manual) PT INR POC ABG pH ABG pH POC ABG pCO2 POC ABG pO2 ABG pO2 ABG O2 Saturation ABG Base Excess ABG Hemoglobin Oxyhemoglobin Sodium Potassium Chloride Carbon Dioxide 21 L BUN 80 H Creatinine 2.1 H Glucose 170 H POC Glucose 277 H 206 H Calcium 8.0 L Phosphorus Magnesium Iron TIBC Ferritin Total Bilirubin AST ALT Alkaline Phosphatase Total Creatine Kinase Troponin T C-Reactive Protein Total Protein Albumin Triglycerides HDL Cholesterol Miscellaneous Test Crossmatch 09/11/17 09/12/17 09/12/17 23:36 05:25 05:25 WBC 17.4 H RBC 2.29 L Hgb 6.7 L Hct 20.4 L MCV MCH MCHC RDW 21.2 H Plt Count Lymph % (Auto) [place] % (Auto) [place] # Seg Neutrophils % Seg Neuts % (Manual) 79.0 H Lymphocytes % (Manual) 5.0 L Monocytes % (Manual) Nucleated RBC % 1.0 H Seg Neutrophils # Seg Neutrophils # Man 13.7 H Lymphocytes # (Manual) 0.9 L Monocytes # (Manual) 1.2 H Eosinophils # (Manual) Basophils # (Manual) PT INR POC ABG pH ABG pH POC ABG pCO2 POC ABG pO2 ABG pO2 ABG O2 Saturation ABG Base Excess ABG Hemoglobin Oxyhemoglobin Sodium Potassium Chloride Carbon Dioxide BUN Creatinine Glucose POC Glucose 190 H Calcium Phosphorus Magnesium Iron 22 L TIBC 81 L Ferritin Total Bilirubin AST ALT Alkaline Phosphatase Total Creatine Kinase Troponin T C-Reactive Protein Total Protein Albumin Triglycerides HDL Cholesterol Miscellaneous Test Crossmatch 09/12/17 09/12/17 09/12/17 05:25 05:36 09:14 WBC RBC Hgb Hct MCV MCH MCHC RDW Plt Count Lymph % (Auto) [place] % (Auto) [place] # Seg Neutrophils % Seg Neuts % (Manual) Lymphocytes % (Manual) Monocytes % (Manual) Nucleated RBC % Seg Neutrophils # Seg Neutrophils # Man Lymphocytes # (Manual) Monocytes # (Manual) Eosinophils # (Manual) Basophils # (Manual) PT INR POC ABG pH ABG pH POC ABG pCO2 POC ABG pO2 ABG pO2 ABG O2 Saturation ABG Base Excess ABG Hemoglobin Oxyhemoglobin Sodium Potassium Chloride Carbon Dioxide BUN Creatinine Glucose POC Glucose 141 H Calcium Phosphorus Magnesium Iron TIBC Ferritin > 2000.0 H Total Bilirubin AST ALT Alkaline Phosphatase Total Creatine Kinase Troponin T C-Reactive Protein Total Protein Albumin Triglycerides HDL Cholesterol Miscellaneous Test Crossmatch See Detail 09/12/17 09/12/17 09/12/17 11:18 15:22 17:18 WBC RBC Hgb 8.5 L Hct 25.4 L MCV MCH MCHC RDW Plt Count Lymph % (Auto) [place] % (Auto) [place] # Seg Neutrophils % Seg Neuts % (Manual) Lymphocytes % (Manual) Monocytes % (Manual) Nucleated RBC % Seg Neutrophils # Seg Neutrophils # Man Lymphocytes # (Manual) Monocytes # (Manual) Eosinophils # (Manual) Basophils # (Manual) PT INR POC ABG pH ABG pH POC ABG pCO2 POC ABG pO2 ABG pO2 ABG O2 Saturation ABG Base Excess ABG Hemoglobin Oxyhemoglobin Sodium Potassium Chloride Carbon Dioxide BUN Creatinine Glucose POC Glucose 262 H 193 H Calcium Phosphorus Magnesium Iron TIBC Ferritin Total Bilirubin AST ALT Alkaline Phosphatase Total Creatine Kinase Troponin T C-Reactive Protein Total Protein Albumin Triglycerides HDL Cholesterol Miscellaneous Test Crossmatch 09/13/17 09/13/17 09/13/17 00:05 06:25 11:36 WBC RBC Hgb Hct MCV MCH MCHC RDW Plt Count Lymph % (Auto) [place] % (Auto) [place] # Seg Neutrophils % Seg Neuts % (Manual) Lymphocytes % (Manual) Monocytes % (Manual) Nucleated RBC % Seg Neutrophils # Seg Neutrophils # Man Lymphocytes # (Manual) Monocytes # (Manual) Eosinophils # (Manual) Basophils # (Manual) PT INR POC ABG pH 7.347 L ABG pH POC ABG pCO2 34.3 L POC ABG pO2 134 H ABG pO2 ABG O2 Saturation ABG Base Excess ABG Hemoglobin Oxyhemoglobin Sodium Potassium Chloride Carbon Dioxide BUN Creatinine Glucose POC Glucose 235 H 286 H Calcium Phosphorus Magnesium Iron TIBC Ferritin Total Bilirubin AST ALT Alkaline Phosphatase Total Creatine Kinase Troponin T C-Reactive Protein Total Protein Albumin Triglycerides HDL Cholesterol Miscellaneous Test Crossmatch 09/13/17 09/13/17 09/13/17 11:56 17:25 23:18 WBC RBC Hgb Hct MCV MCH MCHC RDW Plt Count Lymph % (Auto) [place] % (Auto) [place] # Seg Neutrophils % Seg Neuts % (Manual) Lymphocytes % (Manual) Monocytes % (Manual) Nucleated RBC % Seg Neutrophils # Seg Neutrophils # Man Lymphocytes # (Manual) Monocytes # (Manual) Eosinophils # (Manual) Basophils # (Manual) PT INR POC ABG pH ABG pH POC ABG pCO2 POC ABG pO2 ABG pO2 ABG O2 Saturation ABG Base Excess ABG Hemoglobin Oxyhemoglobin Sodium Potassium Chloride Carbon Dioxide BUN Creatinine Glucose POC Glucose 318 H 278 H 230 H Calcium Phosphorus Magnesium Iron TIBC Ferritin Total Bilirubin AST ALT Alkaline Phosphatase Total Creatine Kinase Troponin T C-Reactive Protein Total Protein Albumin Triglycerides HDL Cholesterol Miscellaneous Test Crossmatch 09/13/17 09/13/17 09/13/17 Unknown Unknown Unknown WBC 15.6 H RBC 2.72 L Hgb 8.1 L Hct 23.9 L MCV MCH MCHC RDW 19.5 H Plt Count 137 L Lymph % (Auto) [place] % (Auto) [place] # Seg Neutrophils % Seg Neuts % (Manual) 73.0 H Lymphocytes % (Manual) 3.0 L Monocytes % (Manual) 19.0 H Nucleated RBC % 2.0 H Seg Neutrophils # Seg Neutrophils # Man 11.4 H Lymphocytes # (Manual) 0.5 L Monocytes # (Manual) 3.0 H Eosinophils # (Manual) Basophils # (Manual) PT INR POC ABG pH ABG pH POC ABG pCO2 POC ABG pO2 ABG pO2 ABG O2 Saturation ABG Base Excess ABG Hemoglobin Oxyhemoglobin Sodium Potassium Chloride Carbon Dioxide 19 L BUN 103 H Creatinine 2.6 H Glucose 173 H POC Glucose Calcium Phosphorus Magnesium Iron TIBC Ferritin Total Bilirubin AST ALT Alkaline Phosphatase Total Creatine Kinase Troponin T C-Reactive Protein Total Protein Albumin < 0.2 L Triglycerides HDL Cholesterol Miscellaneous Test Crossmatch 09/14/17 09/14/17 09/14/17 03:15 03:15 05:16 WBC 12.5 H RBC 2.55 L Hgb 7.6 L Hct 22.5 L MCV MCH MCHC RDW 19.8 H Plt Count 139 L Lymph % (Auto) [place] % (Auto) [place] # Seg Neutrophils % Seg Neuts % (Manual) Lymphocytes % (Manual) Monocytes % (Manual) Nucleated RBC % Seg Neutrophils # Seg Neutrophils # Man Lymphocytes # (Manual) Monocytes # (Manual) Eosinophils # (Manual) Basophils # (Manual) PT INR POC ABG pH ABG pH POC ABG pCO2 POC ABG pO2 ABG pO2 ABG O2 Saturation ABG Base Excess ABG Hemoglobin Oxyhemoglobin Sodium Potassium Chloride Carbon Dioxide BUN 75 H Creatinine 2.1 H Glucose 217 H POC Glucose 283 H Calcium Phosphorus 2.20 L D Magnesium Iron TIBC Ferritin Total Bilirubin AST ALT Alkaline Phosphatase Total Creatine Kinase Troponin T C-Reactive Protein Total Protein Albumin Triglycerides HDL Cholesterol Miscellaneous Test Crossmatch 09/14/17 09/14/17 09/15/17 12:11 17:47 00:03 WBC RBC Hgb Hct MCV MCH MCHC RDW Plt Count Lymph % (Auto) [place] % (Auto) [place] # Seg Neutrophils % Seg Neuts % (Manual) Lymphocytes % (Manual) Monocytes % (Manual) Nucleated RBC % Seg Neutrophils # Seg Neutrophils # Man Lymphocytes # (Manual) Monocytes # (Manual) Eosinophils # (Manual) Basophils # (Manual) PT INR POC ABG pH ABG pH POC ABG pCO2 POC ABG pO2 ABG pO2 ABG O2 Saturation ABG Base Excess ABG Hemoglobin Oxyhemoglobin Sodium Potassium Chloride Carbon Dioxide BUN Creatinine Glucose POC Glucose 251 H 289 H 229 H Calcium Phosphorus Magnesium Iron TIBC Ferritin Total Bilirubin AST ALT Alkaline Phosphatase Total Creatine Kinase Troponin T C-Reactive Protein Total Protein Albumin Triglycerides HDL Cholesterol Miscellaneous Test Crossmatch 09/15/17 09/15/17 09/15/17 05:00 05:00 05:30 WBC 11.7 H RBC 2.50 L Hgb 7.4 L Hct 22.7 L MCV MCH MCHC RDW 20.5 H Plt Count Lymph % (Auto) [place] % (Auto) [place] # Seg Neutrophils % Seg Neuts % (Manual) Lymphocytes % (Manual) 11.0 L Monocytes % (Manual) 11.0 H Nucleated RBC % Seg Neutrophils # Seg Neutrophils # Man Lymphocytes # (Manual) Monocytes # (Manual) 1.3 H Eosinophils # (Manual) Basophils # (Manual) PT INR POC ABG pH ABG pH POC ABG pCO2 POC ABG pO2 ABG pO2 ABG O2 Saturation ABG Base Excess ABG Hemoglobin Oxyhemoglobin Sodium Potassium Chloride 97.0 L Carbon Dioxide 21 L BUN 94 H Creatinine 2.4 H Glucose 194 H POC Glucose 225 H Calcium Phosphorus Magnesium Iron TIBC Ferritin Total Bilirubin AST ALT Alkaline Phosphatase Total Creatine Kinase Troponin T C-Reactive Protein Total Protein Albumin Triglycerides HDL Cholesterol Miscellaneous Test Crossmatch 09/15/17 09/15/17 09/15/17 07:48 11:38 12:45 WBC RBC 1.93 L Hgb 5.7 L* Hct 17.1 L* MCV MCH MCHC RDW 20.2 H Plt Count 125 L Lymph % (Auto) [place] % (Auto) [place] # Seg Neutrophils % Seg Neuts % (Manual) 79.0 H Lymphocytes % (Manual) 8.0 L Monocytes % (Manual) Nucleated RBC % Seg Neutrophils # Seg Neutrophils # Man Lymphocytes # (Manual) 0.8 L Monocytes # (Manual) Eosinophils # (Manual) Basophils # (Manual) PT INR POC ABG pH ABG pH POC ABG pCO2 POC ABG pO2 ABG pO2 ABG O2 Saturation ABG Base Excess ABG Hemoglobin Oxyhemoglobin Sodium Potassium Chloride Carbon Dioxide BUN Creatinine Glucose POC Glucose 245 H 253 H Calcium Phosphorus Magnesium Iron TIBC Ferritin Total Bilirubin AST ALT Alkaline Phosphatase Total Creatine Kinase Troponin T C-Reactive Protein Total Protein Albumin Triglycerides HDL Cholesterol Miscellaneous Test Crossmatch 09/15/17 09/15/17 09/15/17 12:45 12:45 22:25 WBC 19.6 H RBC 3.32 L Hgb 10.0 L D Hct 29.3 L D MCV MCH MCHC RDW 17.0 H Plt Count 123 L Lymph % (Auto) [place] % (Auto) [place] # Seg Neutrophils % Seg Neuts % (Manual) Lymphocytes % (Manual) 12.0 L Monocytes % (Manual) Nucleated RBC % 5.0 H Seg Neutrophils # Seg Neutrophils # Man 11.0 H Lymphocytes # (Manual) Monocytes # (Manual) 1.2 H Eosinophils # (Manual) Basophils # (Manual) PT 15.4 H INR 1.16 H POC ABG pH ABG pH POC ABG pCO2 POC ABG pO2 ABG pO2 ABG O2 Saturation ABG Base Excess ABG Hemoglobin Oxyhemoglobin Sodium Potassium Chloride Carbon Dioxide BUN Creatinine Glucose POC Glucose Calcium Phosphorus Magnesium Iron TIBC Ferritin Total Bilirubin AST ALT Alkaline Phosphatase Total Creatine Kinase Troponin T C-Reactive Protein Total Protein Albumin Triglycerides HDL Cholesterol Miscellaneous Test Crossmatch See Detail 09/15/17 09/15/17 09/16/17 22:25 23:38 01:26 WBC RBC Hgb Hct MCV MCH MCHC RDW Plt Count Lymph % (Auto) [place] % (Auto) [place] # Seg Neutrophils % Seg Neuts % (Manual) Lymphocytes % (Manual) Monocytes % (Manual) Nucleated RBC % Seg Neutrophils # Seg Neutrophils # Man Lymphocytes # (Manual) Monocytes # (Manual) Eosinophils # (Manual) Basophils # (Manual) PT INR POC ABG pH ABG pH POC ABG pCO2 POC ABG pO2 ABG pO2 ABG O2 Saturation ABG Base Excess ABG Hemoglobin Oxyhemoglobin Sodium Potassium Chloride Carbon Dioxide 17 L BUN 100 H Creatinine 2.6 H Glucose POC Glucose 58 L 132 H Calcium 8.3 L Phosphorus Magnesium 1.60 L Iron TIBC Ferritin Total Bilirubin 2.80 H AST 118 H ALT Alkaline Phosphatase 316 H Total Creatine Kinase Troponin T C-Reactive Protein Total Protein 4.0 L Albumin 1.8 L Triglycerides HDL Cholesterol Miscellaneous Test Crossmatch 09/16/17 09/16/17 09/16/17 05:30 05:30 05:54 WBC 24.6 H RBC 3.22 L Hgb 9.8 L Hct 28.6 L MCV MCH MCHC RDW 17.4 H Plt Count 127 L Lymph % (Auto) [place] % (Auto) [place] # Seg Neutrophils % Seg Neuts % (Manual) Lymphocytes % (Manual) Monocytes % (Manual) Nucleated RBC % Seg Neutrophils # Seg Neutrophils # Man Lymphocytes # (Manual) Monocytes # (Manual) Eosinophils # (Manual) Basophils # (Manual) PT INR POC ABG pH ABG pH POC ABG pCO2 POC ABG pO2 ABG pO2 ABG O2 Saturation ABG Base Excess ABG Hemoglobin Oxyhemoglobin Sodium Potassium Chloride Carbon Dioxide 18 L BUN 109 H Creatinine 2.5 H Glucose 140 H POC Glucose 154 H Calcium Phosphorus 4.80 H Magnesium Iron TIBC Ferritin Total Bilirubin 2.40 H AST 90 H ALT Alkaline Phosphatase 298 H Total Creatine Kinase 20 L Troponin T C-Reactive Protein Total Protein 4.1 L Albumin 1.8 L Triglycerides HDL Cholesterol Miscellaneous Test Crossmatch 09/16/17 09/16/17 09/16/17 11:49 17:04 23:18 WBC RBC Hgb Hct MCV MCH MCHC RDW Plt Count Lymph % (Auto) [place] % (Auto) [place] # Seg Neutrophils % Seg Neuts % (Manual) Lymphocytes % (Manual) Monocytes % (Manual) Nucleated RBC % Seg Neutrophils # Seg Neutrophils # Man Lymphocytes # (Manual) Monocytes # (Manual) Eosinophils # (Manual) Basophils # (Manual) PT INR POC ABG pH ABG pH POC ABG pCO2 POC ABG pO2 ABG pO2 ABG O2 Saturation ABG Base Excess ABG Hemoglobin Oxyhemoglobin Sodium Potassium Chloride Carbon Dioxide BUN Creatinine Glucose POC Glucose 167 H 156 H 162 H Calcium Phosphorus Magnesium Iron TIBC Ferritin Total Bilirubin AST ALT Alkaline Phosphatase Total Creatine Kinase Troponin T C-Reactive Protein Total Protein Albumin Triglycerides HDL Cholesterol Miscellaneous Test Crossmatch 09/17/17 09/17/17 09/17/17 05:27 06:10 06:10 WBC 34.6 H RBC 2.75 L Hgb 8.4 L Hct 24.8 L MCV MCH MCHC RDW 18.3 H Plt Count Lymph % (Auto) [place] % (Auto) [place] # Seg Neutrophils % Seg Neuts % (Manual) 77.0 H Lymphocytes % (Manual) 5.0 L Monocytes % (Manual) Nucleated RBC % 2.0 H Seg Neutrophils # Seg Neutrophils # Man 26.6 H Lymphocytes # (Manual) Monocytes # (Manual) 2.4 H Eosinophils # (Manual) Basophils # (Manual) PT INR POC ABG pH ABG pH POC ABG pCO2 POC ABG pO2 ABG pO2 ABG O2 Saturation ABG Base Excess ABG Hemoglobin Oxyhemoglobin Sodium Potassium Chloride Carbon Dioxide BUN 82 H Creatinine 2.1 H Glucose 252 H POC Glucose 243 H Calcium 8.3 L Phosphorus Magnesium Iron TIBC Ferritin Total Bilirubin AST ALT Alkaline Phosphatase Total Creatine Kinase Troponin T C-Reactive Protein Total Protein Albumin Triglycerides HDL Cholesterol Miscellaneous Test Crossmatch 09/17/17 09/17/17 09/18/17 11:42 17:12 00:08 WBC RBC Hgb Hct MCV MCH MCHC RDW Plt Count Lymph % (Auto) [place] % (Auto) [place] # Seg Neutrophils % Seg Neuts % (Manual) Lymphocytes % (Manual) Monocytes % (Manual) Nucleated RBC % Seg Neutrophils # Seg Neutrophils # Man Lymphocytes # (Manual) Monocytes # (Manual) Eosinophils # (Manual) Basophils # (Manual) PT INR POC ABG pH ABG pH POC ABG pCO2 POC ABG pO2 ABG pO2 ABG O2 Saturation ABG Base Excess ABG Hemoglobin Oxyhemoglobin Sodium Potassium Chloride Carbon Dioxide BUN Creatinine Glucose POC Glucose 232 H 309 H 275 H Calcium Phosphorus Magnesium Iron TIBC Ferritin Total Bilirubin AST ALT Alkaline Phosphatase Total Creatine Kinase Troponin T C-Reactive Protein Total Protein Albumin Triglycerides HDL Cholesterol Miscellaneous Test Crossmatch 09/18/17 09/18/17 09/18/17 05:10 05:10 05:23 WBC 24.4 H RBC 2.57 L Hgb 7.8 L Hct 23.2 L MCV MCH MCHC RDW 19.5 H Plt Count Lymph % (Auto) [place] % (Auto) [place] # Seg Neutrophils % Seg Neuts % (Manual) 78.0 H Lymphocytes % (Manual) 6.0 L Monocytes % (Manual) Nucleated RBC % 2.0 H Seg Neutrophils # Seg Neutrophils # Man 19.0 H Lymphocytes # (Manual) Monocytes # (Manual) Eosinophils # (Manual) Basophils # (Manual) PT INR POC ABG pH ABG pH POC ABG pCO2 POC ABG pO2 ABG pO2 ABG O2 Saturation ABG Base Excess ABG Hemoglobin Oxyhemoglobin Sodium Potassium Chloride Carbon Dioxide BUN 103 H Creatinine 2.8 H Glucose 173 H POC Glucose 224 H Calcium Phosphorus Magnesium Iron TIBC Ferritin Total Bilirubin AST ALT Alkaline Phosphatase Total Creatine Kinase Troponin T C-Reactive Protein Total Protein Albumin Triglycerides HDL Cholesterol Miscellaneous Test Crossmatch 09/18/17 09/18/17 09/18/17 13:59 18:35 23:19 WBC RBC Hgb Hct MCV MCH MCHC RDW Plt Count Lymph % (Auto) [place] % (Auto) [place] # Seg Neutrophils % Seg Neuts % (Manual) Lymphocytes % (Manual) Monocytes % (Manual) Nucleated RBC % Seg Neutrophils # Seg Neutrophils # Man Lymphocytes # (Manual) Monocytes # (Manual) Eosinophils # (Manual) Basophils # (Manual) PT INR POC ABG pH ABG pH POC ABG pCO2 POC ABG pO2 ABG pO2 ABG O2 Saturation ABG Base Excess ABG Hemoglobin Oxyhemoglobin Sodium Potassium Chloride Carbon Dioxide BUN Creatinine Glucose POC Glucose 268 H 220 H 188 H Calcium Phosphorus Magnesium Iron TIBC Ferritin Total Bilirubin AST ALT Alkaline Phosphatase Total Creatine Kinase Troponin T C-Reactive Protein Total Protein Albumin Triglycerides HDL Cholesterol Miscellaneous Test Crossmatch 09/19/17 09/19/17 09/19/17 05:45 06:00 11:41 WBC 17.6 H RBC 2.57 L Hgb 7.9 L Hct 23.2 L MCV MCH MCHC RDW 19.0 H Plt Count Lymph % (Auto) [place] % (Auto) [place] # Seg Neutrophils % Seg Neuts % (Manual) Lymphocytes % (Manual) 9.0 L Monocytes % (Manual) Nucleated RBC % Seg Neutrophils # Seg Neutrophils # Man 11.4 H Lymphocytes # (Manual) Monocytes # (Manual) 0.9 H Eosinophils # (Manual) Basophils # (Manual) PT INR POC ABG pH ABG pH POC ABG pCO2 POC ABG pO2 ABG pO2 ABG O2 Saturation ABG Base Excess ABG Hemoglobin Oxyhemoglobin Sodium Potassium Chloride Carbon Dioxide BUN Creatinine Glucose POC Glucose 178 H 126 H Calcium Phosphorus Magnesium Iron TIBC Ferritin Total Bilirubin AST ALT Alkaline Phosphatase Total Creatine Kinase Troponin T C-Reactive Protein Total Protein Albumin Triglycerides HDL Cholesterol Miscellaneous Test Crossmatch 09/19/17 09/19/17 09/20/17 17:08 23:46 04:46 WBC RBC Hgb Hct MCV MCH MCHC RDW Plt Count Lymph % (Auto) [place] % (Auto) [place] # Seg Neutrophils % Seg Neuts % (Manual) Lymphocytes % (Manual) Monocytes % (Manual) Nucleated RBC % Seg Neutrophils # Seg Neutrophils # Man Lymphocytes # (Manual) Monocytes # (Manual) Eosinophils # (Manual) Basophils # (Manual) PT INR POC ABG pH ABG pH POC ABG pCO2 POC ABG pO2 ABG pO2 ABG O2 Saturation ABG Base Excess ABG Hemoglobin Oxyhemoglobin Sodium Potassium 5.2 H D Chloride 97.4 L Carbon Dioxide 20 L BUN 98 H Creatinine 2.4 H Glucose 187 H POC Glucose 263 H 161 H Calcium Phosphorus Magnesium Iron TIBC Ferritin Total Bilirubin AST ALT Alkaline Phosphatase Total Creatine Kinase Troponin T C-Reactive Protein Total Protein Albumin Triglycerides HDL Cholesterol Miscellaneous Test Crossmatch 09/20/17 09/20/17 09/20/17 05:38 11:36 11:41 WBC 24.5 H RBC 2.84 L Hgb 8.2 L Hct 26.2 L MCV MCH MCHC RDW 20.0 H Plt Count 470 H Lymph % (Auto) [place] % (Auto) [place] # Seg Neutrophils % Seg Neuts % (Manual) Lymphocytes % (Manual) Monocytes % (Manual) Nucleated RBC % Seg Neutrophils # Seg Neutrophils # Man Lymphocytes # (Manual) Monocytes # (Manual) Eosinophils # (Manual) Basophils # (Manual) PT INR POC ABG pH ABG pH POC ABG pCO2 POC ABG pO2 ABG pO2 ABG O2 Saturation ABG Base Excess ABG Hemoglobin Oxyhemoglobin Sodium Potassium Chloride Carbon Dioxide BUN Creatinine Glucose POC Glucose 215 H 220 H Calcium Phosphorus Magnesium Iron TIBC Ferritin Total Bilirubin AST ALT Alkaline Phosphatase Total Creatine Kinase Troponin T C-Reactive Protein Total Protein Albumin Triglycerides HDL Cholesterol Miscellaneous Test Crossmatch 09/20/17 09/21/17 09/21/17 17:45 00:51 04:00 WBC RBC Hgb Hct MCV MCH MCHC RDW Plt Count Lymph % (Auto) [place] % (Auto) [place] # Seg Neutrophils % Seg Neuts % (Manual) Lymphocytes % (Manual) Monocytes % (Manual) Nucleated RBC % Seg Neutrophils # Seg Neutrophils # Man Lymphocytes # (Manual) Monocytes # (Manual) Eosinophils # (Manual) Basophils # (Manual) PT INR POC ABG pH ABG pH POC ABG pCO2 POC ABG pO2 ABG pO2 ABG O2 Saturation ABG Base Excess ABG Hemoglobin Oxyhemoglobin Sodium Potassium 3.2 L D Chloride 96.4 L Carbon Dioxide BUN 63 H Creatinine 1.8 H Glucose 204 H POC Glucose 122 H 137 H Calcium 8.3 L Phosphorus 2.10 L D Magnesium 1.50 L Iron TIBC Ferritin Total Bilirubin AST ALT Alkaline Phosphatase Total Creatine Kinase Troponin T C-Reactive Protein Total Protein Albumin Triglycerides HDL Cholesterol Miscellaneous Test Crossmatch 09/21/17 09/21/17 09/21/17 05:45 08:30 11:50 WBC 27.5 H RBC 2.52 L Hgb 7.7 L Hct 22.8 L MCV MCH MCHC RDW 19.2 H Plt Count 457 H Lymph % (Auto) [place] % (Auto) [place] # Seg Neutrophils % Seg Neuts % (Manual) Lymphocytes % (Manual) Monocytes % (Manual) Nucleated RBC % Seg Neutrophils # Seg Neutrophils # Man Lymphocytes # (Manual) Monocytes # (Manual) Eosinophils # (Manual) Basophils # (Manual) PT INR POC ABG pH ABG pH POC ABG pCO2 POC ABG pO2 ABG pO2 ABG O2 Saturation ABG Base Excess ABG Hemoglobin Oxyhemoglobin Sodium Potassium Chloride Carbon Dioxide BUN Creatinine Glucose POC Glucose 243 H Calcium Phosphorus Magnesium Iron TIBC Ferritin Total Bilirubin AST ALT Alkaline Phosphatase Total Creatine Kinase Troponin T C-Reactive Protein Total Protein Albumin Triglycerides HDL Cholesterol Miscellaneous Test Crossmatch See Detail 09/21/17 09/21/17 09/22/17 13:03 16:39 00:09 WBC RBC Hgb Hct MCV MCH MCHC RDW Plt Count Lymph % (Auto) [place] % (Auto) [place] # Seg Neutrophils % Seg Neuts % (Manual) Lymphocytes % (Manual) Monocytes % (Manual) Nucleated RBC % Seg Neutrophils # Seg Neutrophils # Man Lymphocytes # (Manual) Monocytes # (Manual) Eosinophils # (Manual) Basophils # (Manual) PT INR POC ABG pH ABG pH POC ABG pCO2 POC ABG pO2 ABG pO2 ABG O2 Saturation ABG Base Excess ABG Hemoglobin Oxyhemoglobin Sodium Potassium Chloride Carbon Dioxide BUN Creatinine Glucose POC Glucose 271 H 160 H 191 H Calcium Phosphorus Magnesium Iron TIBC Ferritin Total Bilirubin AST ALT Alkaline Phosphatase Total Creatine Kinase Troponin T C-Reactive Protein Total Protein Albumin Triglycerides HDL Cholesterol Miscellaneous Test Crossmatch 09/22/17 09/22/17 09/22/17 03:37 05:40 07:35 WBC 29.7 H RBC 2.71 L Hgb 8.1 L Hct 24.1 L MCV MCH MCHC RDW 19.6 H Plt Count 491 H Lymph % (Auto) [place] % (Auto) [place] # Seg Neutrophils % Seg Neuts % (Manual) 70.5 H Lymphocytes % (Manual) 12.5 L Monocytes % (Manual) 10.0 H Nucleated RBC % 2.0 H Seg Neutrophils # Seg Neutrophils # Man 20.9 H Lymphocytes # (Manual) Monocytes # (Manual) 3.0 H Eosinophils # (Manual) Basophils # (Manual) PT INR POC ABG pH ABG pH POC ABG pCO2 POC ABG pO2 ABG pO2 ABG O2 Saturation ABG Base Excess ABG Hemoglobin Oxyhemoglobin Sodium Potassium 3.0 L Chloride 95.9 L Carbon Dioxide BUN 74 H Creatinine 2.1 H Glucose 126 H POC Glucose 150 H Calcium Phosphorus 2.10 L Magnesium 1.40 L Iron TIBC Ferritin Total Bilirubin AST ALT Alkaline Phosphatase 311 H Total Creatine Kinase Troponin T C-Reactive Protein Total Protein 4.4 L Albumin 2.0 L Triglycerides HDL Cholesterol Miscellaneous Test Crossmatch 09/22/17 09/23/17 09/23/17 12:20 05:02 05:02 WBC 37.5 H RBC 2.54 L Hgb 7.3 L Hct 22.9 L MCV MCH MCHC RDW 19.4 H Plt Count 471 H Lymph % (Auto) [place] % (Auto) [place] # Seg Neutrophils % Seg Neuts % (Manual) Lymphocytes % (Manual) 8.0 L Monocytes % (Manual) Nucleated RBC % 1.0 H Seg Neutrophils # Seg Neutrophils # Man 15.0 H Lymphocytes # (Manual) Monocytes # (Manual) 1.9 H Eosinophils # (Manual) Basophils # (Manual) PT INR POC ABG pH ABG pH POC ABG pCO2 POC ABG pO2 ABG pO2 ABG O2 Saturation ABG Base Excess ABG Hemoglobin Oxyhemoglobin Sodium 136 L Potassium 3.0 L Chloride 93.8 L Carbon Dioxide BUN 99 H Creatinine 2.7 H Glucose POC Glucose 106 H Calcium 8.2 L Phosphorus 2.40 L Magnesium Iron TIBC Ferritin Total Bilirubin AST ALT Alkaline Phosphatase Total Creatine Kinase Troponin T C-Reactive Protein Total Protein Albumin Triglycerides HDL Cholesterol Miscellaneous Test Crossmatch 09/23/17 09/23/17 09/23/17 05:39 11:21 18:19 WBC RBC Hgb Hct MCV MCH MCHC RDW Plt Count Lymph % (Auto) Dewey % (Auto) Dewey # Seg Neutrophils % Seg Neuts % (Manual) Lymphocytes % (Manual) Monocytes % (Manual) Nucleated RBC % Seg Neutrophils # Seg Neutrophils # Man Lymphocytes # (Manual) Monocytes # (Manual) Eosinophils # (Manual) Basophils # (Manual) PT INR POC ABG pH ABG pH POC ABG pCO2 POC ABG pO2 ABG pO2 ABG O2 Saturation ABG Base Excess ABG Hemoglobin Oxyhemoglobin Sodium Potassium Chloride Carbon Dioxide BUN Creatinine Glucose POC Glucose 118 H 130 H 189 H Calcium Phosphorus Magnesium Iron TIBC Ferritin Total Bilirubin AST ALT Alkaline Phosphatase Total Creatine Kinase Troponin T C-Reactive Protein Total Protein Albumin Triglycerides HDL Cholesterol Miscellaneous Test Crossmatch 09/23/17 09/24/17 09/24/17 23:55 04:00 04:00 WBC 37.8 H RBC 2.76 L Hgb 8.1 L Hct 24.8 L MCV MCH MCHC RDW 19.8 H Plt Count 539 H Lymph % (Auto) [place]wey % (Auto) Dewey # Seg Neutrophils % Seg Neuts % (Manual) Lymphocytes % (Manual) 4.0 L Monocytes % (Manual) Nucleated RBC % 6.0 H Seg Neutrophils # Seg Neutrophils # Man 19.3 H Lymphocytes # (Manual) Monocytes # (Manual) 1.5 H Eosinophils # (Manual) Basophils # (Manual) 0.4 H PT INR POC ABG pH ABG pH POC ABG pCO2 POC ABG pO2 ABG pO2 ABG O2 Saturation ABG Base Excess ABG Hemoglobin Oxyhemoglobin Sodium Potassium 3.5 L Chloride 95.2 L Carbon Dioxide BUN 67 H Creatinine 1.9 H Glucose 140 H POC Glucose 120 H Calcium 8.2 L Phosphorus 2.00 L Magnesium Iron TIBC Ferritin Total Bilirubin AST ALT Alkaline Phosphatase Total Creatine Kinase Troponin T C-Reactive Protein Total Protein Albumin Triglycerides HDL Cholesterol Miscellaneous Test Crossmatch 09/24/17 09/24/17 09/24/17 04:00 05:33 12:16 WBC RBC Hgb Hct MCV MCH MCHC RDW Plt Count Lymph % (Auto) [place]wey % (Auto) [place]wey # Seg Neutrophils % Seg Neuts % (Manual) Lymphocytes % (Manual) Monocytes % (Manual) Nucleated RBC % Seg Neutrophils # Seg Neutrophils # Man Lymphocytes # (Manual) Monocytes # (Manual) Eosinophils # (Manual) Basophils # (Manual) PT INR POC ABG pH ABG pH POC ABG pCO2 POC ABG pO2 ABG pO2 ABG O2 Saturation ABG Base Excess ABG Hemoglobin Oxyhemoglobin Sodium Potassium Chloride Carbon Dioxide BUN Creatinine Glucose POC Glucose 178 H 262 H Calcium Phosphorus Magnesium Iron TIBC Ferritin Total Bilirubin AST ALT Alkaline Phosphatase Total Creatine Kinase Troponin T C-Reactive Protein Total Protein Albumin Triglycerides HDL Cholesterol Miscellaneous Test Crossmatch See Detail 09/24/17 09/24/17 09/25/17 17:51 23:33 06:03 WBC RBC Hgb Hct MCV MCH MCHC RDW Plt Count Lymph % (Auto) [place]wey % (Auto) [place]wey # Seg Neutrophils % Seg Neuts % (Manual) Lymphocytes % (Manual) Monocytes % (Manual) Nucleated RBC % Seg Neutrophils # Seg Neutrophils # Man Lymphocytes # (Manual) Monocytes # (Manual) Eosinophils # (Manual) Basophils # (Manual) PT INR POC ABG pH ABG pH POC ABG pCO2 POC ABG pO2 ABG pO2 ABG O2 Saturation ABG Base Excess ABG Hemoglobin Oxyhemoglobin Sodium Potassium Chloride Carbon Dioxide BUN Creatinine Glucose POC Glucose 166 H 142 H 173 H Calcium Phosphorus Magnesium Iron TIBC Ferritin Total Bilirubin AST ALT Alkaline Phosphatase Total Creatine Kinase Troponin T C-Reactive Protein Total Protein Albumin Triglycerides HDL Cholesterol Miscellaneous Test Crossmatch 09/25/17 09/25/17 09/25/17 07:49 07:49 11:36 WBC 59.6 H* RBC 2.63 L Hgb 7.7 L Hct 26.0 L MCV 99 H MCH MCHC RDW 21.8 H Plt Count Lymph % (Auto) [place]wey % (Auto) Dewey # Seg Neutrophils % Seg Neuts % (Manual) Lymphocytes % (Manual) 2.0 L Monocytes % (Manual) Nucleated RBC % 8.0 H Seg Neutrophils # Seg Neutrophils # Man 41.7 H Lymphocytes # (Manual) Monocytes # (Manual) 1.2 H Eosinophils # (Manual) Basophils # (Manual) PT INR POC ABG pH ABG pH POC ABG pCO2 POC ABG pO2 ABG pO2 ABG O2 Saturation ABG Base Excess ABG Hemoglobin Oxyhemoglobin Sodium Potassium 5.3 H D Chloride 97.7 L Carbon Dioxide 19 L BUN 90 H Creatinine 2.5 H Glucose 181 H POC Glucose 308 H Calcium 8.0 L Phosphorus Magnesium Iron TIBC Ferritin Total Bilirubin AST ALT Alkaline Phosphatase Total Creatine Kinase Troponin T C-Reactive Protein Total Protein Albumin Triglycerides HDL Cholesterol Miscellaneous Test Crossmatch 09/25/17 09/25/17 09/26/17 16:11 23:38 05:25 WBC 61.9 H* RBC 2.30 L Hgb 7.0 L Hct 21.4 L MCV MCH MCHC RDW 21.3 H Plt Count Lymph % (Auto) [place]wey % (Auto) [place]wey # Seg Neutrophils % Seg Neuts % (Manual) Lymphocytes % (Manual) 1.0 L Monocytes % (Manual) Nucleated RBC % 7.0 H Seg Neutrophils # Seg Neutrophils # Man 37.1 H Lymphocytes # (Manual) 0.6 L Monocytes # (Manual) 1.9 H Eosinophils # (Manual) Basophils # (Manual) PT INR POC ABG pH ABG pH POC ABG pCO2 POC ABG pO2 ABG pO2 ABG O2 Saturation ABG Base Excess ABG Hemoglobin Oxyhemoglobin Sodium Potassium Chloride Carbon Dioxide BUN Creatinine Glucose POC Glucose 249 H 263 H Calcium Phosphorus Magnesium Iron TIBC Ferritin Total Bilirubin AST ALT Alkaline Phosphatase Total Creatine Kinase Troponin T C-Reactive Protein Total Protein Albumin Triglycerides HDL Cholesterol Miscellaneous Test Crossmatch 09/26/17 09/26/17 09/26/17 05:25 05:32 11:33 WBC RBC Hgb Hct MCV MCH MCHC RDW Plt Count Lymph % (Auto) [place]wey % (Auto) [place]wey # Seg Neutrophils % Seg Neuts % (Manual) Lymphocytes % (Manual) Monocytes % (Manual) Nucleated RBC % Seg Neutrophils # Seg Neutrophils # Man Lymphocytes # (Manual) Monocytes # (Manual) Eosinophils # (Manual) Basophils # (Manual) PT INR POC ABG pH ABG pH POC ABG pCO2 POC ABG pO2 ABG pO2 ABG O2 Saturation ABG Base Excess ABG Hemoglobin Oxyhemoglobin Sodium Potassium Chloride Carbon Dioxide 21 L BUN 81 H Creatinine 2.3 H Glucose 178 H POC Glucose 225 H 246 H Calcium 8.1 L Phosphorus Magnesium Iron TIBC Ferritin Total Bilirubin AST ALT Alkaline Phosphatase Total Creatine Kinase Troponin T C-Reactive Protein Total Protein Albumin Triglycerides HDL Cholesterol Miscellaneous Test Crossmatch 09/26/17 09/27/17 09/27/17 17:43 00:11 04:00 WBC 63.0 H* RBC 2.23 L Hgb 6.3 L Hct 20.6 L MCV MCH MCHC RDW 20.6 H Plt Count Lymph % (Auto) [place]wey % (Auto) [place]wey # Seg Neutrophils % Seg Neuts % (Manual) Lymphocytes % (Manual) 3.0 L Monocytes % (Manual) Nucleated RBC % 6.0 H Seg Neutrophils # Seg Neutrophils # Man 40.3 H Lymphocytes # (Manual) Monocytes # (Manual) 4.4 H Eosinophils # (Manual) Basophils # (Manual) PT INR POC ABG pH ABG pH POC ABG pCO2 POC ABG pO2 ABG pO2 ABG O2 Saturation ABG Base Excess ABG Hemoglobin Oxyhemoglobin Sodium Potassium Chloride Carbon Dioxide BUN Creatinine Glucose POC Glucose 180 H 194 H Calcium Phosphorus Magnesium Iron TIBC Ferritin Total Bilirubin AST ALT Alkaline Phosphatase Total Creatine Kinase Troponin T C-Reactive Protein Total Protein Albumin Triglycerides HDL Cholesterol Miscellaneous Test Crossmatch 09/27/17 09/27/17 09/27/17 04:00 04:00 05:11 WBC RBC Hgb Hct MCV MCH MCHC RDW Plt Count Lymph % (Auto) [place]wey % (Auto) [place] # Seg Neutrophils % Seg Neuts % (Manual) Lymphocytes % (Manual) Monocytes % (Manual) Nucleated RBC % Seg Neutrophils # Seg Neutrophils # Man Lymphocytes # (Manual) Monocytes # (Manual) Eosinophils # (Manual) Basophils # (Manual) PT INR POC ABG pH ABG pH POC ABG pCO2 POC ABG pO2 ABG pO2 ABG O2 Saturation ABG Base Excess ABG Hemoglobin Oxyhemoglobin Sodium Potassium Chloride Carbon Dioxide 19 L BUN 102 H Creatinine 2.8 H Glucose 141 H POC Glucose 189 H Calcium 8.1 L Phosphorus Magnesium 2.40 H Iron TIBC Ferritin Total Bilirubin AST ALT Alkaline Phosphatase Total Creatine Kinase Troponin T C-Reactive Protein Total Protein Albumin Triglycerides HDL Cholesterol Miscellaneous Test Crossmatch 09/27/17 09/27/17 09/27/17 08:58 11:54 17:20 WBC RBC Hgb Hct MCV MCH MCHC RDW Plt Count Lymph % (Auto) [place] % (Auto) [place] # Seg Neutrophils % Seg Neuts % (Manual) Lymphocytes % (Manual) Monocytes % (Manual) Nucleated RBC % Seg Neutrophils # Seg Neutrophils # Man Lymphocytes # (Manual) Monocytes # (Manual) Eosinophils # (Manual) Basophils # (Manual) PT INR POC ABG pH ABG pH POC ABG pCO2 POC ABG pO2 ABG pO2 ABG O2 Saturation ABG Base Excess ABG Hemoglobin Oxyhemoglobin Sodium Potassium Chloride Carbon Dioxide BUN Creatinine Glucose POC Glucose 196 H 199 H Calcium Phosphorus Magnesium Iron TIBC Ferritin Total Bilirubin AST ALT Alkaline Phosphatase Total Creatine Kinase Troponin T C-Reactive Protein Total Protein Albumin Triglycerides HDL Cholesterol Miscellaneous Test Crossmatch See Detail 09/28/17 09/28/17 09/28/17 00:11 05:23 12:07 WBC RBC Hgb Hct MCV MCH MCHC RDW Plt Count Lymph % (Auto) [place] % (Auto) [place] # Seg Neutrophils % Seg Neuts % (Manual) Lymphocytes % (Manual) Monocytes % (Manual) Nucleated RBC % Seg Neutrophils # Seg Neutrophils # Man Lymphocytes # (Manual) Monocytes # (Manual) Eosinophils # (Manual) Basophils # (Manual) PT INR POC ABG pH ABG pH POC ABG pCO2 POC ABG pO2 ABG pO2 ABG O2 Saturation ABG Base Excess ABG Hemoglobin Oxyhemoglobin Sodium Potassium Chloride Carbon Dioxide BUN Creatinine Glucose POC Glucose 155 H 237 H 218 H Calcium Phosphorus Magnesium Iron TIBC Ferritin Total Bilirubin AST ALT Alkaline Phosphatase Total Creatine Kinase Troponin T C-Reactive Protein Total Protein Albumin Triglycerides HDL Cholesterol Miscellaneous Test Crossmatch 09/28/17 09/28/17 09/28/17 17:58 Unknown Unknown WBC 39.0 H RBC 3.10 L Hgb 9.6 L D Hct 27.6 L D MCV MCH MCHC 35 H RDW 17.1 H Plt Count Lymph % (Auto) [place]wey % (Auto) [place] # Seg Neutrophils % Seg Neuts % (Manual) 80.5 H Lymphocytes % (Manual) 0.5 L Monocytes % (Manual) Nucleated RBC % Seg Neutrophils # Seg Neutrophils # Man 31.4 H Lymphocytes # (Manual) 0.2 L Monocytes # (Manual) 2.5 H Eosinophils # (Manual) Basophils # (Manual) PT INR POC ABG pH ABG pH POC ABG pCO2 POC ABG pO2 ABG pO2 ABG O2 Saturation ABG Base Excess ABG Hemoglobin Oxyhemoglobin Sodium Potassium 3.4 L D Chloride Carbon Dioxide BUN 72 H Creatinine 2.0 H Glucose 194 H POC Glucose 108 H Calcium 7.4 L Phosphorus Magnesium Iron TIBC Ferritin Total Bilirubin AST ALT Alkaline Phosphatase Total Creatine Kinase Troponin T C-Reactive Protein Total Protein Albumin Triglycerides HDL Cholesterol Miscellaneous Test Crossmatch 09/29/17 09/29/17 09/29/17 00:12 06:00 06:00 WBC 28.0 H RBC 2.92 L Hgb 8.7 L Hct 26.5 L MCV MCH MCHC RDW 17.1 H Plt Count Lymph % (Auto) [place] % (Auto) [place] # Seg Neutrophils % Seg Neuts % (Manual) 74.5 H Lymphocytes % (Manual) 5.5 L Monocytes % (Manual) 10.5 H Nucleated RBC % Seg Neutrophils # Seg Neutrophils # Man 20.9 H Lymphocytes # (Manual) Monocytes # (Manual) 2.9 H Eosinophils # (Manual) Basophils # (Manual) PT INR POC ABG pH ABG pH POC ABG pCO2 POC ABG pO2 ABG pO2 ABG O2 Saturation ABG Base Excess ABG Hemoglobin Oxyhemoglobin Sodium Potassium Chloride 97.9 L Carbon Dioxide BUN 101 H Creatinine 2.5 H Glucose 177 H POC Glucose 117 H Calcium 7.6 L Phosphorus Magnesium Iron TIBC Ferritin Total Bilirubin AST ALT Alkaline Phosphatase Total Creatine Kinase Troponin T C-Reactive Protein Total Protein Albumin Triglycerides HDL Cholesterol Miscellaneous Test Crossmatch 09/29/17 09/29/17 09/30/17 06:27 17:27 05:20 WBC 23.0 H RBC 2.64 L Hgb 7.9 L Hct 23.9 L MCV MCH MCHC RDW 18.1 H Plt Count Lymph % (Auto) [place] % (Auto) [place] # Seg Neutrophils % Seg Neuts % (Manual) 29.0 L Lymphocytes % (Manual) Monocytes % (Manual) 11.0 H Nucleated RBC % Seg Neutrophils # Seg Neutrophils # Man Lymphocytes # (Manual) Monocytes # (Manual) 2.5 H Eosinophils # (Manual) Basophils # (Manual) PT INR POC ABG pH ABG pH POC ABG pCO2 POC ABG pO2 ABG pO2 ABG O2 Saturation ABG Base Excess ABG Hemoglobin Oxyhemoglobin Sodium Potassium Chloride Carbon Dioxide BUN Creatinine Glucose POC Glucose 183 H 150 H Calcium Phosphorus Magnesium Iron TIBC Ferritin Total Bilirubin AST ALT Alkaline Phosphatase Total Creatine Kinase Troponin T C-Reactive Protein Total Protein Albumin Triglycerides HDL Cholesterol Miscellaneous Test Crossmatch 09/30/17 09/30/17 05:20 05:31 WBC RBC Hgb Hct MCV MCH MCHC RDW Plt Count Lymph % (Auto) [place] % (Auto) [place] # Seg Neutrophils % Seg Neuts % (Manual) Lymphocytes % (Manual) Monocytes % (Manual) Nucleated RBC % Seg Neutrophils # Seg Neutrophils # Man Lymphocytes # (Manual) Monocytes # (Manual) Eosinophils # (Manual) Basophils # (Manual) PT INR POC ABG pH ABG pH POC ABG pCO2 POC ABG pO2 ABG pO2 ABG O2 Saturation ABG Base Excess ABG Hemoglobin Oxyhemoglobin Sodium Potassium Chloride 97.0 L Carbon Dioxide 20 L BUN 120 H Creatinine 2.9 H Glucose 126 H POC Glucose 143 H Calcium 8.2 L Phosphorus Magnesium Iron TIBC Ferritin Total Bilirubin AST ALT Alkaline Phosphatase Total Creatine Kinase Troponin T C-Reactive Protein Total Protein Albumin Triglycerides HDL Cholesterol Miscellaneous Test Crossmatch
[2017-09-30] MEDS: LEVEMIR SUB-Q SCH (10:00)
--- NOTE | 2017-09-30 10:28 | Progress Note ---
Assessment and Plan Assessment: 1) Sepsis with septic shock: leukocytosis better, still on pressors. Procal = 7-->3 2) Initial Bowel obstruction / suspect ?gastric perforation ? peritonitis -S/P Exlap, G-tube placement, EGD, abdominal washout and removal of PD -OR findings - bowel obstruction due to entanglement of PD cath, abscess cavity in LUQ and ? suspect perforation of unclear location 3) Intiial CA-UTI: chronic ivan exchanged every 4 weeks and ureteral stents in place which are exchanged every 6 months 4) Paraplegia 5) ESRD on PD - now on HD 6) Recent pancreatitis 7) Penicillin allergy-has taken keflex w/o problems 8) Presumed Surgical wound infection / dehiscence ? 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 Ramya Lang MD Infectious Diseases Specialist [facility], [place] ([facility]) M [phone] O [phone] Subjective Date of service: 09/30/17 Principal diagnosis: respiratory failure, sepsis, shock rectal bleeding Interval history: Pt remains on the vent still levophed at 8 mcg on TPN, fentanyl, no fever. Microbiology: Blood cultures: 08/08 neg 08/12 neg 08/16 neg 08/20 neg 08/29 neg 09/06 neg 09/12 ngtd Urine cultures: 08/08 10-100K skin grace Respiratory cultures: 08/30 tracheal asp MRSA Wound cultures: 08/26 Staph aureus and Kristine 08/28 MRSA, E faecalis, Kristine albicans 09/20 MDR Acinetobacter and Kristine albicans Stool cultures: Other: 08/08 peritoneal fluid + [employer]/Diphteroids Current Antimicrobials: meropenem 09/25 fluconazole 09/24 Previous Antimicrobials: 08/10 levaquin 08/16 vancomycin 08/13 meropenem 08/16 fluconazole Micafungin 08/29 meropenem 08/29 zyvox 09/03 fluconazole 09/03 dapto 09/10 meropenem 09/09-09/22 micafungin 09/11-09/21 Objective - Exam Narrative Exam: General appearance: on the vent via trach Eyes: anicteric sclerae, moist conjunctivae; no lid-lag; PERRLA HENT: Atraumatic; NGT Neck: Trach in place Lungs: coarse BS moreno CV: RRR Abdomen: soft, midline surgical wound + ostomy. MERVIN drains with minimal output, LLQ drain slightly seropurulent, LUQ drain serosanguenous. G tube to OSD with yellow output per surgical eval. Extremities: + peripheral edema + leg ulcer no drainage Skin: right groin old fem line wound no erythema, no drainage Psych: sedated. Neuro: sedated Lines: right IJ vas cath / Right IJ Nair 08/16 - Constitutional Vitals: Vital Signs Temp Pulse Resp BP Pulse Ox 98.6 F 115 H 24 106/56 98 09/30/17 08:00 09/30/17 10:15 09/30/17 10:00 09/30/17 10:15 09/30/17 09:45 Temperature -Last 24 Hours Temperature 98.6 F Temperature 98.6 F Temperature 99.0 F Temperature 99.3 F Temperature 99.3 F Temperature 99.7 F Temperature 99.5 F Temperature 97.9 F Temperature 98.3 F - Labs CBC & Chem 7: 09/30/17 05:20 09/30/17 05:20 Labs: Abnormal lab results 09/07/17 09/29/17 09/30/17 Range/Units 17:07 17:27 05:20 WBC 23.0 H (4.5-11.0) K/mm3 RBC 2.64 L (3.65-5.03) M/mm3 Hgb 7.9 L (10.1-14.3) gm/dl Hct 23.9 L (30.3-42.9) % RDW 18.1 H (13.2-15.2) % Seg Neuts % (Manual) 29.0 L (40.0-70.0) % Monocytes % (Manual) 11.0 H (0.0-7.3) % Monocytes # (Manual) 2.5 H (0.0-0.8) K/mm3 Chloride (98-107) mmol/L Carbon Dioxide (22-30) mmol/L BUN (7-17) mg/dL Creatinine (0.7-1.2) mg/dL Glucose (65-100) mg/dL POC Glucose 150 H (70-105) Calcium (8.4-10.2) mg/dL Crossmatch See Detail 09/30/17 09/30/17 Range/Units 05:20 05:31 WBC (4.5-11.0) K/mm3 RBC (3.65-5.03) M/mm3 Hgb (10.1-14.3) gm/dl Hct (30.3-42.9) % RDW (13.2-15.2) % Seg Neuts % (Manual) (40.0-70.0) % Monocytes % (Manual) (0.0-7.3) % Monocytes # (Manual) (0.0-0.8) K/mm3 Chloride 97.0 L (98-107) mmol/L Carbon Dioxide 20 L (22-30) mmol/L BUN 120 H (7-17) mg/dL Creatinine 2.9 H (0.7-1.2) mg/dL Glucose 126 H (65-100) mg/dL POC Glucose 143 H (70-105) Calcium 8.2 L (8.4-10.2) mg/dL Crossmatch
[2017-09-30] MEDS: HEPARIN IV PRN (10:51)
[2017-09-30] MEDS: MERREM 1,000 MG in NACL 0.9% 100 ML IV SCH (12:20)
[2017-09-30] MEDS: DIFLUCAN 200 MG/100 ML BAG IV SCH (12:20)
[2017-09-30] MEDS: SANTYL TP PRN (12:21)
[2017-09-30] MEDS: PROTONIX IV SCH (12:21)
[2017-09-30] MEDS: LEVOPHED 8 MG in NACL 0.9% 250ML 242 ML IV SCH (12:24)
[2017-09-30] MEDS ORDERED: PROVENTIL IH PRN (13:00)
--- NOTE | 2017-09-30 19:42 | Progress Note ---
Assessment and Plan - Patient Problems (1) Leukocytosis Current Visit: Yes Status: Acute Qualifiers: Leukocytosis type: L Plan to address problem: See notes above. make sure that PD access is clean also. see notes. Probably infection from the infected PD catheter. improving. back up again. up/down continue to monitor. it continuos to rise. still high. improved. Back up. Now improving again. still in the same range as yesterday.. worse today. 37,000 59,000 61.9 63,000. 39,000 today. 28,000. 23,000 (2) Anemia Current Visit: Yes Status: Acute Qualifiers: Anemia type: A Iron deficiency anemia type: I Vitamin B12 deficiency anemia type: V Folate deficiency anemia type: F Bone marrow failure anemia type: B Hemolytic anemia type: H Other causes of anemia: O Chronic kidney disease stage: C Plan to address problem: see notes , monitor labs,. see notes above. continue to monitor labs with you. blood transfusion. S/P replacement transfusion. fair. s/p 1unit transfusion. see notes. Still at 7.4 6.9, scheduled for replacement. Fairly stable at this time. continue to monitor. If less, or equal to 7.0, will need replacement transfusion, with HD. Fair at this time. 7.7 today 7.0, needs blood with next HD. 6.3, and transfused. better post transfusion. stable. (3) Acute respiratory failure Current Visit: Yes Status: Acute Qualifiers: Respiratory failure complication: R Plan to address problem: follow pulm. Subjective Date of service: 09/30/17 Principal diagnosis: respiratory failure, sepsis, shock rectal bleeding Interval history: Patient seen today/examined, labs reviewed, case d/w she, and family.complaints of abdominal pain. Patient resting in bed in the ICU, post vascular procedure. labs reviewed, Reactive thrombocytosis, anemia of CD, leukocytosis from infection vs inflamatory process. Patient seen/examined, in bed in the ICU, on the vent post surgery.Labs reviewed , notes reviewed. will continue to monitor labs/patient with you. Replacement transfusion, if /when indicated. patient seen/examined, SBP75, on pressors., lethargic, on the vent, labs reviewed, wbc 39,000 Patient seen/examined, case reviewed, d/w her sister at the bed side. Patient seen/examined, labs reviewed, notes reviewed. severe septic shock from infected PD catheter The high wbc is all infection related. H?H low, and may get replacement transfusion with the next HD. Prognosis remain quite poor. Patient seen/examined, extubated, now on V Mask. labs reviewed. patient seen/examined, resting in bed, still some what lethargic . labs reviewed. Patient seen/examined, resting in bed., some difficulty with breathing./ lethargic. patient seen/examined, resting in bed, looked much better labs reviewed, and fair over all. Patient seen/examined, resting in bed, labs reviewed, case d/w her. Patient seen/examined, resting in bed on BIPAP., labs reviewed. patient seen/examined, resting in bed, on Bipap.labs reviewed, fairly stable. Patient seen today, resting in bed, labs reviewed, H/H low, and transfusion already ordered. Patient seen/examined, resting in bed, transferred back to the unit, due to resp failure. She is now on venting mask. had blood replacement done. Patient seen/examined in the ICU.labs reviewed. patient intubated this am. patient resting in bed.no new issues. Patient seen/examined in the ICU, on vent,Not readily responsive. patient seen, resting in bed, no new cbc ready.will order for today. Patient seen, resting in vent, labs reviewed.notes reviewed also. patient seen/examined, resting on vent, had HD yesterday, and today., labs reviewed. Patient seen, resting in bed, labs reviewed.fairly stable labs, except the wbc. Patient seen/examined, rtesting in bed on the vent.Labs reviewed, wbc still elevated, Hgb dropped slightly. Patient seen/examined, labs reviewed, hgb 7.3, if 7.0 or less, will replace .unless otherwise indicated. Patient seen/examined, alert but lethargic.sedation drip turned down.she is s/p 1unit PRBC replacement with HD today. Patient seen/examined, labs reviewed, hgb still not quite enough at 7.5, perhaps with the next HD,can use 1-2 units. Patient seen/examined, resting in bed, trached, labs re viewed. Patient seen/examined, resting in bed, responds to name calling, SBP99, labs reviewed, Hgb 6.9, PRBC replacement ordered by primary. Patient seen/examined, in bed/trach, NGT., alert/lethargic. Patient seen/examined, resting in bed, still lethargic, labs reviewed, and still fair.Will continue to follow you. Patient seen/examined, resting in bed, labs reviewed. HD in progress.She is now getting daily HD.Labs reviewed, and still fair. Patient seen/examined, resting in bed, less lethargic/less toxic looking. labs have improved. Patient seen/examined, labs reviewed, fair, case d/w her spouse at the bed side. Patient seen/examined, resting ok in bed, alert, NAD, HD in progress.Labs reviewed, and WBC 27,000, Hgb 7.8. Patient seen/examined, resting in bed in the ICU, NAD.labs reviewed, and fair. Patient seen/examined, resting in bed, labs reviewed, WBC back up,to37,000, and Hgb down to 7.3, transfusion will be needed ,if hgb less, or equal to 7.0 Patient seen/examined, resting in bed in the ICU, alert, lethargic, labs reviewed, and fair. She remains on 5mics of levophed., Temp 100. Patient seen/examined in the ICU, alert, Labs reviewed, WBC 59,000. Patient seen/examined, resting in bed, labs reviewed, WBC up to 61.9,000, Hgb 7.0, and may benefit from PRBC replacement of 2units with HD. Patient seen/examined, resting in bed, easily awoken.Hgb low at 6.3, replaced earlier with HD today.will need repeat labs in am. Patient seen/examined today, resting in bed in the ICU, labs reviewed, WBC down again to 39,000., H/H stable, post transfusion. Patient seen/examined, labs reviewed, case d/w her spouse at the bed side. WBC down to 28,000. patient seen/examined, resting in bed, more alert today, wbc better. Objective - Constitutional Vitals: Vital Signs - 12hr 09/30/17 09/30/17 09/30/17 07:45 08:00 08:15 Temperature 98.6 F Pulse Rate 114 H 108 H 110 H Pulse Rate [ Anterior Bilateral Throughout] Respiratory 26 H 25 H 27 H Rate Respiratory Rate [Anterior Bilateral Throughout] Blood Pressure 124/63 121/56 122/52 O2 Sat by Pulse 99 99 98 Oximetry O2 Sat by Pulse 99 Oximetry [ Anterior Bilateral Throughout] O2 Sat by Pulse Oximetry [ Assessment] 09/30/17 09/30/17 09/30/17 08:30 08:45 09:00 Temperature Pulse Rate 108 H 100 H 106 H Pulse Rate [ Anterior Bilateral Throughout] Respiratory 25 H 25 H 26 H Rate Respiratory Rate [Anterior Bilateral Throughout] Blood Pressure 118/55 128/55 115/57 O2 Sat by Pulse 97 96 96 Oximetry O2 Sat by Pulse Oximetry [ Anterior Bilateral Throughout] O2 Sat by Pulse Oximetry [ Assessment] 09/30/17 09/30/17 09/30/17 09:14 09:15 09:16 Temperature Pulse Rate 108 H 111 H Pulse Rate [ 111 H Anterior Bilateral Throughout] Respiratory 34 H Rate Respiratory 27 H Rate [Anterior Bilateral Throughout] Blood Pressure 115/57 134/65 O2 Sat by Pulse 97 96 Oximetry O2 Sat by Pulse Oximetry [ Anterior Bilateral Throughout] O2 Sat by Pulse Oximetry [ Assessment] 09/30/17 09/30/17 09/30/17 09:30 09:32 09:45 Temperature Pulse Rate 112 H 115 H Pulse Rate [ 111 H Anterior Bilateral Throughout] Respiratory 24 26 H Rate Respiratory 21 Rate [Anterior Bilateral Throughout] Blood Pressure 133/61 139/63 O2 Sat by Pulse 98 98 Oximetry O2 Sat by Pulse Oximetry [ Anterior Bilateral Throughout] O2 Sat by Pulse Oximetry [ Assessment] 09/30/17 09/30/17 09/30/17 10:00 10:15 10:30 Temperature Pulse Rate 116 H 114 H 115 H Pulse Rate [ Anterior Bilateral Throughout] Respiratory 24 24 21 Rate Respiratory Rate [Anterior Bilateral Throughout] Blood Pressure 115/61 106/56 102/56 O2 Sat by Pulse 100 100 Oximetry O2 Sat by Pulse Oximetry [ Anterior Bilateral Throughout] O2 Sat by Pulse Oximetry [ Assessment] 09/30/17 09/30/17 09/30/17 10:45 10:46 11:00 Temperature Pulse Rate 114 H 116 H 116 H Pulse Rate [ Anterior Bilateral Throughout] Respiratory 27 H 23 Rate Respiratory Rate [Anterior Bilateral Throughout] Blood Pressure 118/62 118/62 96/54 O2 Sat by Pulse 97 95 Oximetry O2 Sat by Pulse Oximetry [ Anterior Bilateral Throughout] O2 Sat by Pulse Oximetry [ Assessment] 09/30/17 09/30/17 09/30/17 11:02 11:15 11:16 Temperature Pulse Rate 116 H 115 H 116 H Pulse Rate [ Anterior Bilateral Throughout] Respiratory 29 H Rate Respiratory Rate [Anterior Bilateral Throughout] Blood Pressure 96/54 96/54 97/58 O2 Sat by Pulse 100 98 Oximetry O2 Sat by Pulse Oximetry [ Anterior Bilateral Throughout] O2 Sat by Pulse Oximetry [ Assessment] 09/30/17 09/30/17 09/30/17 11:30 11:45 11:50 Temperature 98.7 F Pulse Rate 116 H 114 H 115 H Pulse Rate [ Anterior Bilateral Throughout] Respiratory 25 H 24 28 H Rate Respiratory Rate [Anterior Bilateral Throughout] Blood Pressure 113/57 116/54 112/54 O2 Sat by Pulse 96 Oximetry O2 Sat by Pulse 97 Oximetry [ Anterior Bilateral Throughout] O2 Sat by Pulse Oximetry [ Assessment] 09/30/17 09/30/17 09/30/17 12:00 12:15 12:30 Temperature 98.7 F Pulse Rate 115 H 115 H 116 H Pulse Rate [ Anterior Bilateral Throughout] Respiratory 26 H 26 H 24 Rate Respiratory Rate [Anterior Bilateral Throughout] Blood Pressure 116/54 118/53 108/55 O2 Sat by Pulse 97 97 97 Oximetry O2 Sat by Pulse Oximetry [ Anterior Bilateral Throughout] O2 Sat by Pulse Oximetry [ Assessment] 09/30/17 09/30/17 09/30/17 12:45 13:01 13:15 Temperature Pulse Rate 116 H 119 H 118 H Pulse Rate [ Anterior Bilateral Throughout] Respiratory 27 H 34 H 36 H Rate Respiratory Rate [Anterior Bilateral Throughout] Blood Pressure 120/58 136/58 127/60 O2 Sat by Pulse 96 94 97 Oximetry O2 Sat by Pulse Oximetry [ Anterior Bilateral Throughout] O2 Sat by Pulse Oximetry [ Assessment] 09/30/17 09/30/17 09/30/17 13:30 13:45 14:01 Temperature Pulse Rate 118 H 121 H 124 H Pulse Rate [ Anterior Bilateral Throughout] Respiratory 36 H 35 H 40 H Rate Respiratory Rate [Anterior Bilateral Throughout] Blood Pressure 127/59 146/59 136/59 O2 Sat by Pulse 97 97 99 Oximetry O2 Sat by Pulse Oximetry [ Anterior Bilateral Throughout] O2 Sat by Pulse Oximetry [ Assessment] 09/30/17 09/30/17 09/30/17 14:15 14:45 16:00 Temperature 98.8 F Pulse Rate 124 H 118 H Pulse Rate [ Anterior Bilateral Throughout] Respiratory 33 H Rate Respiratory Rate [Anterior Bilateral Throughout] Blood Pressure 125/59 116/62 O2 Sat by Pulse 98 98 Oximetry O2 Sat by Pulse Oximetry [ Anterior Bilateral Throughout] O2 Sat by Pulse Oximetry [ Assessment] 09/30/17 09/30/17 17:35 17:37 Temperature Pulse Rate 121 H Pulse Rate [ Anterior Bilateral Throughout] Respiratory Rate Respiratory Rate [Anterior Bilateral Throughout] Blood Pressure 131/62 O2 Sat by Pulse 99 Oximetry O2 Sat by Pulse Oximetry [ Anterior Bilateral Throughout] O2 Sat by Pulse 100 Oximetry [ Assessment] General appearance: Present: mild distress, well-nourished - EENT Eyes: PERRL, EOM intact ENT: hearing intact, clear oral mucosa Ears: bilateral: normal - Neck Neck: supple, normal ROM - Respiratory Respiratory: bilateral: diminished, rhonchi - Breasts Breasts: deferred - Cardiovascular Rhythm: regular Heart Sounds: Present: S1 & S2. Absent: gallop, rub Extremities: pulses intact, No edema, normal color, Full ROM - Gastrointestinal General gastrointestinal: Present: soft, non-tender, non-distended, normal bowel sounds Rectal Exam: deferred - Genitourinary Female genitourinary: deferred - Integumentary Integumentary: clear, warm, dry - Musculoskeletal Musculoskeletal: 1, strength equal bilaterally - Neurologic Neurologic: moves all extremities - Psychiatric Psychiatric: appropriate mood/affect - Labs CBC & Chem 7: 09/30/17 05:20 09/30/17 05:20 Labs: Abnormal lab results 09/07/17 09/29/17 09/30/17 Range/Units 17:07 11:50 05:20 WBC 23.0 H (4.5-11.0) K/mm3 RBC 2.64 L (3.65-5.03) M/mm3 Hgb 7.9 L (10.1-14.3) gm/dl Hct 23.9 L (30.3-42.9) % RDW 18.1 H (13.2-15.2) % Seg Neuts % (Manual) 29.0 L (40.0-70.0) % Monocytes % (Manual) 11.0 H (0.0-7.3) % Monocytes # (Manual) 2.5 H (0.0-0.8) K/mm3 Chloride (98-107) mmol/L Carbon Dioxide (22-30) mmol/L BUN (7-17) mg/dL Creatinine (0.7-1.2) mg/dL Glucose (65-100) mg/dL POC Glucose 209 H (70-105) Calcium (8.4-10.2) mg/dL Crossmatch See Detail 09/30/17 09/30/17 Range/Units 05:20 05:31 WBC (4.5-11.0) K/mm3 RBC (3.65-5.03) M/mm3 Hgb (10.1-14.3) gm/dl Hct (30.3-42.9) % RDW (13.2-15.2) % Seg Neuts % (Manual) (40.0-70.0) % Monocytes % (Manual) (0.0-7.3) % Monocytes # (Manual) (0.0-0.8) K/mm3 Chloride 97.0 L (98-107) mmol/L Carbon Dioxide 20 L (22-30) mmol/L BUN 120 H (7-17) mg/dL Creatinine 2.9 H (0.7-1.2) mg/dL Glucose 126 H (65-100) mg/dL POC Glucose 143 H (70-105) Calcium 8.2 L (8.4-10.2) mg/dL Crossmatch
--- NOTE | 2017-09-30 19:52 | Progress Note ---
Assessment and Plan Assessment and plan: 62 yo female with abdominal abscess and peritonitis s/p surgical intervention complicated with bowel obstruction/surgical wound infection/dehiscence and multiple surgical reinterventions, with respiratory failure and refractory hypotension Acute bacterial peritonitis/intra-abdominal abscess/bowel obstruction S/p PD catheter removal and multiple exploratory laparatomy 08/17 expl lap - abscess LUQ, bowel obstruction, ?perforation of unclear location ; PDs cath removal, abd washout, G tube placement 08/31 expl lap with washout and closure 09/15 expl lap transverse colectomy, right-sided colostomy, washout 09/24 expl lap abdominal washout, placement of biological mesh, closure of small bowel enterotomy Complicated with wound infection, dehiscence Multiple antibiotic courses per ID recommendation; currently on meropenem and fluconazole day 05/01 Septic shock Due to abdominal abscess and catheter associated UTI On antibiotics Still on low-dose Levophed and midodrine Acute hypoxic respiratory failure Status post trach Still on vent, PSV trial Weaning per pulmonary End-stage renal disease Previously on PD, s/p cath removal and switched to HD Nephro following and assessing HD needs Anemia Blood loss anemia + anemia of chronic disease S/p PRBCs Epogen with HD Monitor H&H Ulcerative esophagitis/small gastric ulcer S/p EGD S/p multiple transfusions On PPI CAUTI Completed antibiotics Pancreatitis Resolved Leukocytosis Slowly trending down Monitor ID following NSVT Cardiology believes that it was secondary to Levophed which now weaning off History of cervical surgery Wheelchair bound since then Pain control Penicillin allergy ? Has taken keflex in the past w/o problems DVT prophylaxis SCDs History Interval history: awake, alert, on HD; still on low dose levophed; on PSV trial Hospitalist Physical - Constitutional Vitals: Temp Pulse Resp BP Pulse Ox 98.8 F 123 H 27 H 96/49 97 09/30/17 16:00 09/30/17 19:30 09/30/17 19:30 09/30/17 19:30 09/30/17 19:30 General appearance: Present: mild distress, obese - EENT Eyes: Present: PERRL, EOM intact. Absent: scleral icterus, conjunctival injection - Neck Neck: Present: supple, other (trach). Absent: masses or JVD - Respiratory Respiratory: bilateral: diminished, rhonchi, negative: wheezing - Cardiovascular Rhythm: other (tachycardic) Heart Sounds: Present: S1 & S2. Absent: systolic murmur - Extremities Extremities: no ischemia Extremity abnormal: edema - Abdominal General gastrointestinal: soft, tender, non-distended, normal bowel sounds, other (PEG, MERVIN drain, ostomy, dressing in place) - Psychiatric Psychiatric: other (nods head to questions) - Neurologic Neurologic: other (paraplegia) Results - Labs CBC & Chem 7: 10/03/17 04:00 10/02/17 05:00 Labs: Laboratory Last Values WBC 23.0 K/mm3 (4.5-11.0) H 09/30/17 05:20 RBC 2.64 M/mm3 (3.65-5.03) L 09/30/17 05:20 Hgb 7.9 gm/dl (10.1-14.3) L 09/30/17 05:20 Hct 23.9 % (30.3-42.9) L 09/30/17 05:20 MCV 91 fl (79-97) 09/30/17 05:20 MCH 30 pg (28-32) 09/30/17 05:20 MCHC 33 % (30-34) 09/30/17 05:20 RDW 18.1 % (13.2-15.2) H 09/30/17 05:20 Plt Count 231 K/mm3 (140-440) 09/30/17 05:20 Lymph % (Auto) [employer] 08/19/17 07:37 Crosby % (Auto) [employer] 09/30/17 05:20 Eos % (Auto) [employer] 08/19/17 07:37 Baso % (Auto) [employer] 08/19/17 07:37 Lymph # [employer] 09/26/17 05:25 Crosby # [employer] 08/19/17 07:37 Eos # [employer] 08/19/17 07:37 Baso # [employer] 08/19/17 07:37 Add Manual Diff Complete 09/30/17 05:20 Total Counted 100 09/30/17 05:20 Seg Neutrophils % [employer] 09/08/17 04:05 Seg Neuts % (Manual) 29.0 % (40.0-70.0) L 09/30/17 05:20 Band Neutrophils % 41.0 % 09/30/17 05:20 Lymphocytes % (Manual) 16.0 % (13.4-35.0) 09/30/17 05:20 Reactive Lymphs % (Man) 0 % 09/30/17 05:20 Monocytes % (Manual) 11.0 % (0.0-7.3) H 09/30/17 05:20 Eosinophils % (Manual) 0 % (0.0-4.3) 09/30/17 05:20 Basophils % (Manual) 0 % (0.0-1.8) 09/30/17 05:20 Metamyelocytes % 3.0 % 09/30/17 05:20 Myelocytes % 0 % 09/30/17 05:20 Promyelocytes % 0 % 09/30/17 05:20 Blast Cells % 0 % 09/30/17 05:20 Nucleated RBC % Not Reportable 09/30/17 05:20 Seg Neutrophils # [employer] 08/19/17 07:37 Seg Neutrophils # Man 6.7 K/mm3 (1.8-7.7) 09/30/17 05:20 Band Neutrophils # 9.4 K/mm3 09/30/17 05:20 Lymphocytes # (Manual) 3.7 K/mm3 (1.2-5.4) 09/30/17 05:20 Abs React Lymphs (Man) 0.0 K/mm3 09/30/17 05:20 Monocytes # (Manual) 2.5 K/mm3 (0.0-0.8) H 09/30/17 05:20 Eosinophils # (Manual) 0.0 K/mm3 (0.0-0.4) 09/30/17 05:20 Basophils # (Manual) 0.0 K/mm3 (0.0-0.1) 09/30/17 05:20 Metamyelocytes # 0.7 K/mm3 09/30/17 05:20 Myelocytes # 0.0 K/mm3 09/30/17 05:20 Promyelocytes # 0.0 K/mm3 09/30/17 05:20 Blast Cells # 0.0 K/mm3 09/30/17 05:20 Pathologist Review Not Reportable 08/30/17 05:20 WBC Morphology Not Reportable 09/30/17 05:20 Hypersegmented Neuts Not Reportable 09/30/17 05:20 Hyposegmented Neuts Not Reportable 09/30/17 05:20 Hypogranular Neuts Not Reportable 09/30/17 05:20 Smudge Cells Not Reportable 09/30/17 05:20 Toxic Granulation Not Reportable 09/30/17 05:20 Toxic Vacuolation Not Reportable 09/30/17 05:20 Dohle Bodies Not Reportable 09/30/17 05:20 Pelger-Huet Anomaly Not Reportable 09/30/17 05:20 Ariel Rods Not Reportable 09/30/17 05:20 Platelet Estimate Appears normal 09/30/17 05:20 Clumped Platelets Not Reportable 09/30/17 05:20 Plt Clumps, EDTA Not Reportable 09/30/17 05:20 Large Platelets Few 09/30/17 05:20 Giant Platelets Not Reportable 09/30/17 05:20 Platelet Satelliting Not Reportable 09/30/17 05:20 Plt Morphology Comment Not Reportable 09/30/17 05:20 RBC Morphology Not Reportable 09/30/17 05:20 Dimorphic RBCs Not Reportable 09/30/17 05:20 Polychromasia Few 09/30/17 05:20 Hypochromasia 1+ 09/30/17 05:20 Poikilocytosis Few 09/30/17 05:20 Anisocytosis 1+ 09/30/17 05:20 Microcytosis Not Reportable 09/30/17 05:20 Macrocytosis Not Reportable 09/30/17 05:20 Spherocytes Few 09/30/17 05:20 Pappenheimer Bodies Not Reportable 09/30/17 05:20 Sickle Cells Not Reportable 09/30/17 05:20 Target Cells Not Reportable 09/30/17 05:20 Tear Drop Cells Not Reportable 09/30/17 05:20 Ovalocytes Not Reportable 09/30/17 05:20 Stomatocytes Rare 09/12/17 05:25 Helmet Cells Not Reportable 09/30/17 05:20 [place] Bodies Not Reportable 09/30/17 05:20 [place] Rings Not Reportable 09/30/17 05:20 [place] Cells Not Reportable 09/30/17 05:20 Bite Cells Not Reportable 09/30/17 05:20 Crenated Cell Not Reportable 09/30/17 05:20 Elliptocytes Not Reportable 09/30/17 05:20 Acanthocytes (Spur) Not Reportable 09/30/17 05:20 Rouleaux Not Reportable 09/30/17 05:20 Hemoglobin C Crystals Not Reportable 09/30/17 05:20 Schistocytes Rare 09/30/17 05:20 Malaria parasites Not Reportable 09/30/17 05:20 Jovanni Bodies Not Reportable 09/30/17 05:20 Hem Pathologist Commnt No 09/30/17 05:20 PT 14.9 Sec. (12.2-14.9) 09/21/17 07:00 INR 1.11 (0.87-1.13) 09/21/17 07:00 APTT 28.7 Sec. (24.2-36.6) 08/31/17 18:15 POC ABG pH 7.347 (7.35-7.45) L 09/13/17 11:36 ABG pH 7.323 pH Units (7.350-7.450) L 09/09/17 Unknown POC ABG pCO2 34.3 (35-45) L 09/13/17 11:36 ABG pCO2 41.1 mm Hg 09/09/17 Unknown POC ABG pO2 134 (80-105) H 09/13/17 11:36 ABG pO2 94.1 mm Hg (80.0-90.0) H 09/09/17 Unknown POC ABG HCO3 18.8 09/13/17 11:36 ABG HCO3 20.9 mmol/L (20.0-26.0) 09/09/17 Unknown POC ABG Total CO2 20 09/13/17 11:36 POC ABG O2 Sat 99 09/13/17 11:36 ABG O2 Saturation 97.2 % (95.0-99.0) 09/09/17 Unknown ABG O2 Content 10.9 (0.0-44) 09/09/17 Unknown POC ABG Base Excess -7 09/13/17 11:36 ABG Base Excess -4.8 mmol/L (-2.0-3.0) L 09/09/17 Unknown ABG Hemoglobin 8.0 gm/dl (12.0-16.0) L 09/09/17 Unknown ABG Carboxyhemoglobin 2.0 % (0.0-5.0) 09/09/17 Unknown ABG Methemoglobin 0.3 % (0.0-1.5) 09/09/17 Unknown VBG pH 7.462 (7.320-7.420) H 08/08/17 14:52 Oxyhemoglobin 94.9 % (95.0-99.0) L 09/09/17 Unknown FiO2 30 % 09/13/17 11:36 Sodium 139 mmol/L (137-145) 09/30/17 05:20 Potassium 4.2 mmol/L (3.6-5.0) 09/30/17 05:20 Chloride 97.0 mmol/L (98-107) L 09/30/17 05:20 Carbon Dioxide 20 mmol/L (22-30) L 09/30/17 05:20 Anion Gap 26 mmol/L 09/30/17 05:20 BUN 120 mg/dL (7-17) H 09/30/17 05:20 Creatinine 2.9 mg/dL (0.7-1.2) H 09/30/17 05:20 Estimated GFR 20 ml/min 09/30/17 05:20 BUN/Creatinine Ratio 41 % 09/30/17 05:20 Glucose 126 mg/dL (65-100) H 09/30/17 05:20 POC Glucose 143 (70-105) H 09/30/17 05:31 Lactic Acid 1.60 mmol/L (0.7-2.0) 08/17/17 11:20 Calcium 8.2 mg/dL (8.4-10.2) L 09/30/17 05:20 Phosphorus 4.10 mg/dL (2.5-4.5) 09/30/17 05:20 Magnesium 2.00 mg/dL (1.7-2.3) 09/30/17 05:20 Iron 22 ug/dL (37-170) L 09/12/17 05:25 TIBC 81 mcg/dL (250-450) L 09/12/17 05:25 Ferritin > 2000.0 ng/mL (13.0-400.0) H 09/12/17 05:25 Total Bilirubin 0.70 mg/dL (0.1-1.2) 09/22/17 03:37 Direct Bilirubin 0.2 mg/dL (0-0.2) 08/08/17 14:11 Indirect Bilirubin 0.3 mg/dL 08/08/17 14:11 AST 33 units/L (5-40) 09/22/17 03:37 ALT 16 units/L (7-56) 09/22/17 03:37 Alkaline Phosphatase 311 units/L (35-129) H 09/22/17 03:37 Ammonia 25.0 umol/L (25-60) 08/08/17 14:52 Total Creatine Kinase 20 units/L (30-135) L 09/16/17 05:30 Troponin T 0.132 ng/mL (0.00-0.029) H* 08/09/17 13:25 C-Reactive Protein 2.80 mg/dL (0.00-1.30) H 09/06/17 05:30 NT-Pro-B Natriuret Pep 6156 pg/mL (0-900) H 08/08/17 14:11 Total Protein 4.4 g/dL (6.3-8.2) L 09/22/17 03:37 Albumin 2.0 g/dL (3.9-5) L 09/22/17 03:37 Albumin/Globulin Ratio 0.8 % 09/22/17 03:37 Triglycerides 180 mg/dL (2-149) H 09/03/17 04:00 Cholesterol 91 mg/dL (50-199) 08/08/17 21:23 LDL Cholesterol Direct 53 mg/dL (50-130) 08/08/17 21:23 HDL Cholesterol 26 mg/dL (40-59) L 08/08/17 21:23 Cholesterol/HDL Ratio 3.50 % 08/08/17 21:23 Amylase 45 units/L (27-131) 08/16/17 09:50 Lipase 34 units/L (13-60) 08/16/17 09:50 TSH 6.580 mlU/mL (0.270-4.200) H 08/08/17 14:22 Free T4 1.46 ng/dL (0.76-1.46) 08/08/17 14:22 Total Cortisol 28.3 mcg/dL () 09/13/17 12:50 Urine Color Yellow (Yellow) 08/08/17 20:15 Urine Turbidity Turbid (Clear) 08/08/17 20:15 Urine pH 8.0 (5.0-7.0) H 08/08/17 20:15 Ur Specific [place] 1.015 (1.003-1.030) 08/08/17 20:15 Urine Protein 100 mg/dl mg/dL (Negative) 08/08/17 20:15 Urine Glucose (UA) Neg mg/dL (Negative) 08/08/17 20:15 Urine Ketones Neg mg/dL (Negative) 08/08/17 20:15 Urine Blood Mod (Negative) 08/08/17 20:15 Urine Nitrite Neg (Negative) 08/08/17 20:15 Urine Bilirubin Neg (Negative) 08/08/17 20:15 Urine Urobilinogen < 2.0 mg/dL (<2.0) 08/08/17 20:15 Ur Leukocyte Esterase Lg (Negative) 08/08/17 20:15 Urine WBC (Auto) 24.0 /HPF (0.0-6.0) H 08/08/17 20:15 Urine RBC (Auto) 3.0 /HPF (0.0-6.0) 08/08/17 20:15 U Epithel Cells (Auto) 3.0 /HPF (0-13.0) 08/08/17 20:15 Urine Bacteria (Auto) 4+ /HPF (Negative) 08/08/17 20:15 Urine Mucus 3+ /HPF 08/08/17 20:15 Fluid Type Peritoneal 08/08/17 18:18 Fluid Color Straw 08/08/17 18:18 Fluid Appearance Clear 08/08/17 18:18 Fluid pH 7.74 08/08/17 18:18 Fluid WBC 4 /mm3 08/08/17 18:18 Fluid RBC 1 /mm3 08/08/17 18:18 Fluid Seg Neutrophils 12 % 08/08/17 18:18 Fluid Lymphocytes 0 % 08/08/17 18:18 Fluid Reactive Lymphs 0 % 08/08/17 18:18 Fluid Monocytes 1 % 08/08/17 18:18 Fluid Eosinophils 0 % 08/08/17 18:18 Fluid Basophils 0 % 08/08/17 18:18 Fluid Glucose 315 mg/dL (40-70) H 08/08/17 18:18 Random Vancomycin 19.5 ug/mL (0-40.0) 08/22/17 03:40 Hep Bs Antigen Non-reactive (Negative) 08/22/17 03:40 Hepatitis C Antibody Non-reactive (NonReactive) 08/22/17 03:40 Miscellaneous Test Flexitest 1 H 09/06/17 09:57 Blood Type O POSITIVE 09/27/17 08:58 Antibody Screen Negative 09/27/17 08:58 VAN Antibody Screen Negative 09/07/17 17:07 Crossmatch See Detail 09/27/17 08:58
[2017-09-30] MEDS ORDERED: TPN ADULT 1,800 ML IV SCH (20:00)
[2017-09-30] MEDS: TYLENOL FEEDTUBE PRN (22:18)
[2017-10-01 06:06] LABS: Hematocrit 23.8 % (30.3-42.9); Hemoglobin 7.8 gm/dl (10.1-14.3); Mean Corpuscular HGB Conc 33 % (30-34); Mean Corpuscular Hemoglobin 30 pg (28-32); Mean Corpuscular Volume 91 fl (79-97); Platelet Count 231 K/mm3 (140-440); Red Cell Distribution Width 17.5 % (13.2-15.2)
[2017-10-01] MEDS: NOVOLOG SUB-Q SCH ×4 (06:18→18:17)
[2017-10-01 06:26] LABS: Calcium 8.4 mg/dL (8.4-10.2); Chloride 103.6 mmol/L (98-107); Magnesium 1.7 mg/dL (1.7-2.3); Phosphorous 2.4 mg/dL (2.5-4.5); Potassium 3.6 mmol/L (3.6-5.0)
--- NOTE | 2017-10-01 07:36 | Progress Note ---
Assessment and Plan 1. ESRD: Continue HD on MWF. Isolated UF on TTS as tolerated. UF today. Monitor lytes. S/p switched from PD. 2. Anemia: S/p multiple units of PRBC. Patient continues to drop Hb level. Epogen on dialysis days. 3. Hypotension: Remain on Levophed. Start on Midodrine. 4. Volume overload: UF as tolerated. 5. Acute respiratory failure: On the vent. 6. Sepsis. 7. Gastric perforation and SBO: S/p ex lap, repair of enterotomy. Colonic perforation: S/p ex lap, transverse colon resection, colostomy creation. Abdominal Wound leak: S/p ex lap, abdominal wash out and abdominal wall closure. Subjective Date of service: 10/01/17 Principal diagnosis: respiratory failure, sepsis, shock rectal bleeding Interval history: Patient was seen and examined at the bedside. Remain on the vent. Objective - Vital Signs Vital signs: Vital Signs - 12hr 09/30/17 09/30/17 09/30/17 19:43 19:45 20:00 Temperature 102.9 F H Pulse Rate 124 H 127 H 123 H Pulse Rate [ Apical] Pulse Rate [ From Monitor] Pulse Rate [ Left Dorsalis Pedis] Pulse Rate [ Left Radial] Pulse Rate [ Right Dorsalis Pedis] Pulse Rate [ Right Radial] Respiratory 23 31 H 26 H Rate Blood Pressure 96/49 92/56 89/44 O2 Sat by Pulse 99 97 99 Oximetry O2 Sat by Pulse Oximetry [ Assessment] 09/30/17 09/30/17 09/30/17 20:15 20:30 20:35 Temperature Pulse Rate 120 H 122 H 122 H Pulse Rate [ Apical] Pulse Rate [ From Monitor] Pulse Rate [ Left Dorsalis Pedis] Pulse Rate [ Left Radial] Pulse Rate [ Right Dorsalis Pedis] Pulse Rate [ Right Radial] Respiratory 25 H 28 H Rate Blood Pressure 79/41 86/38 79/41 O2 Sat by Pulse 97 97 98 Oximetry O2 Sat by Pulse Oximetry [ Assessment] 09/30/17 09/30/17 09/30/17 20:43 20:45 21:00 Temperature Pulse Rate 124 H 124 H Pulse Rate [ Apical] Pulse Rate [ From Monitor] Pulse Rate [ Left Dorsalis Pedis] Pulse Rate [ Left Radial] Pulse Rate [ Right Dorsalis Pedis] Pulse Rate [ Right Radial] Respiratory 27 H 26 H Rate Blood Pressure 81/39 95/42 O2 Sat by Pulse 97 Oximetry O2 Sat by Pulse 100 Oximetry [ Assessment] 09/30/17 09/30/17 09/30/17 21:15 21:30 21:45 Temperature Pulse Rate 118 H 119 H 117 H Pulse Rate [ Apical] Pulse Rate [ From Monitor] Pulse Rate [ Left Dorsalis Pedis] Pulse Rate [ Left Radial] Pulse Rate [ Right Dorsalis Pedis] Pulse Rate [ Right Radial] Respiratory 25 H 24 27 H Rate Blood Pressure 86/48 93/47 89/41 O2 Sat by Pulse 97 Oximetry O2 Sat by Pulse Oximetry [ Assessment] 09/30/17 09/30/17 09/30/17 22:00 22:15 22:30 Temperature Pulse Rate 118 H 117 H 116 H Pulse Rate [ Apical] Pulse Rate [ From Monitor] Pulse Rate [ Left Dorsalis Pedis] Pulse Rate [ Left Radial] Pulse Rate [ Right Dorsalis Pedis] Pulse Rate [ Right Radial] Respiratory 29 H 26 H 30 H Rate Blood Pressure 90/45 91/44 105/49 O2 Sat by Pulse 96 98 97 Oximetry O2 Sat by Pulse Oximetry [ Assessment] 09/30/17 09/30/17 09/30/17 22:45 23:00 23:04 Temperature 100.3 F H Pulse Rate 126 H 115 H Pulse Rate [ Apical] Pulse Rate [ From Monitor] Pulse Rate [ Left Dorsalis Pedis] Pulse Rate [ Left Radial] Pulse Rate [ Right Dorsalis Pedis] Pulse Rate [ Right Radial] Respiratory 25 H 28 H Rate Blood Pressure 100/51 93/46 O2 Sat by Pulse 98 97 Oximetry O2 Sat by Pulse Oximetry [ Assessment] 09/30/17 09/30/17 09/30/17 23:15 23:30 23:45 Temperature Pulse Rate 118 H 107 H 112 H Pulse Rate [ Apical] Pulse Rate [ From Monitor] Pulse Rate [ Left Dorsalis Pedis] Pulse Rate [ Left Radial] Pulse Rate [ Right Dorsalis Pedis] Pulse Rate [ Right Radial] Respiratory 24 22 23 Rate Blood Pressure 95/53 85/52 89/37 O2 Sat by Pulse 98 98 Oximetry O2 Sat by Pulse Oximetry [ Assessment] 09/30/17 10/01/17 10/01/17 23:49 00:00 00:15 Temperature Pulse Rate 108 H 116 H 116 H Pulse Rate [ 103 H Apical] Pulse Rate [ From Monitor] Pulse Rate [ Left Dorsalis Pedis] Pulse Rate [ 103 H Left Radial] Pulse Rate [ 103 H Right Dorsalis Pedis] Pulse Rate [ 103 H Right Radial] Respiratory 32 H 28 H Rate Blood Pressure 89/37 90/37 90/40 O2 Sat by Pulse 100 98 99 Oximetry O2 Sat by Pulse Oximetry [ Assessment] 10/01/17 10/01/17 10/01/17 00:30 00:45 01:00 Temperature Pulse Rate 112 H 112 H 110 H Pulse Rate [ Apical] Pulse Rate [ From Monitor] Pulse Rate [ Left Dorsalis Pedis] Pulse Rate [ Left Radial] Pulse Rate [ Right Dorsalis Pedis] Pulse Rate [ Right Radial] Respiratory 24 30 H 23 Rate Blood Pressure 85/34 86/39 84/40 O2 Sat by Pulse 99 98 98 Oximetry O2 Sat by Pulse Oximetry [ Assessment] 10/01/17 10/01/17 10/01/17 01:15 01:30 01:45 Temperature Pulse Rate 104 H 105 H 105 H Pulse Rate [ Apical] Pulse Rate [ From Monitor] Pulse Rate [ Left Dorsalis Pedis] Pulse Rate [ Left Radial] Pulse Rate [ Right Dorsalis Pedis] Pulse Rate [ Right Radial] Respiratory 25 H 33 H 21 Rate Blood Pressure 77/40 86/47 93/44 O2 Sat by Pulse 97 98 98 Oximetry O2 Sat by Pulse Oximetry [ Assessment] 10/01/17 10/01/17 10/01/17 02:00 02:15 02:30 Temperature Pulse Rate 101 H 105 H 104 H Pulse Rate [ Apical] Pulse Rate [ From Monitor] Pulse Rate [ Left Dorsalis Pedis] Pulse Rate [ Left Radial] Pulse Rate [ Right Dorsalis Pedis] Pulse Rate [ Right Radial] Respiratory 22 25 H 22 Rate Blood Pressure 88/42 102/44 97/46 O2 Sat by Pulse 99 97 98 Oximetry O2 Sat by Pulse Oximetry [ Assessment] 10/01/17 10/01/17 10/01/17 02:45 03:00 03:15 Temperature Pulse Rate 101 H 94 H 97 H Pulse Rate [ Apical] Pulse Rate [ From Monitor] Pulse Rate [ Left Dorsalis Pedis] Pulse Rate [ Left Radial] Pulse Rate [ Right Dorsalis Pedis] Pulse Rate [ Right Radial] Respiratory 18 22 24 Rate Blood Pressure 92/43 92/42 99/45 O2 Sat by Pulse 99 96 97 Oximetry O2 Sat by Pulse Oximetry [ Assessment] 10/01/17 10/01/17 10/01/17 03:17 03:30 03:33 Temperature 99.6 F Pulse Rate 99 H Pulse Rate [ 98 H Apical] Pulse Rate [ 98 H From Monitor] Pulse Rate [ 98 H Left Dorsalis Pedis] Pulse Rate [ 98 H Left Radial] Pulse Rate [ 98 H Right Dorsalis Pedis] Pulse Rate [ 98 H Right Radial] Respiratory 25 H Rate Blood Pressure 94/45 O2 Sat by Pulse 97 100 Oximetry O2 Sat by Pulse Oximetry [ Assessment] 10/01/17 10/01/17 10/01/17 03:45 03:58 04:00 Temperature Pulse Rate 100 H 110 H 95 H Pulse Rate [ Apical] Pulse Rate [ From Monitor] Pulse Rate [ Left Dorsalis Pedis] Pulse Rate [ Left Radial] Pulse Rate [ Right Dorsalis Pedis] Pulse Rate [ Right Radial] Respiratory 22 21 Rate Blood Pressure 95/48 90/45 O2 Sat by Pulse 96 99 98 Oximetry O2 Sat by Pulse Oximetry [ Assessment] 10/01/17 10/01/17 10/01/17 04:15 04:30 04:45 Temperature Pulse Rate 99 H 101 H 101 H Pulse Rate [ Apical] Pulse Rate [ From Monitor] Pulse Rate [ Left Dorsalis Pedis] Pulse Rate [ Left Radial] Pulse Rate [ Right Dorsalis Pedis] Pulse Rate [ Right Radial] Respiratory 25 H 26 H 23 Rate Blood Pressure 94/48 96/49 104/49 O2 Sat by Pulse 97 98 99 Oximetry O2 Sat by Pulse Oximetry [ Assessment] 10/01/17 10/01/17 10/01/17 05:00 05:15 05:30 Temperature Pulse Rate 99 H 93 H 100 H Pulse Rate [ Apical] Pulse Rate [ From Monitor] Pulse Rate [ Left Dorsalis Pedis] Pulse Rate [ Left Radial] Pulse Rate [ Right Dorsalis Pedis] Pulse Rate [ Right Radial] Respiratory 19 20 22 Rate Blood Pressure 96/49 94/44 100/51 O2 Sat by Pulse 98 99 99 Oximetry O2 Sat by Pulse Oximetry [ Assessment] 10/01/17 10/01/17 10/01/17 05:45 06:00 06:15 Temperature Pulse Rate 100 H 100 H 102 H Pulse Rate [ Apical] Pulse Rate [ From Monitor] Pulse Rate [ Left Dorsalis Pedis] Pulse Rate [ Left Radial] Pulse Rate [ Right Dorsalis Pedis] Pulse Rate [ Right Radial] Respiratory 24 23 15 Rate Blood Pressure 102/50 106/51 107/53 O2 Sat by Pulse 98 100 99 Oximetry O2 Sat by Pulse Oximetry [ Assessment] - General Appearance General appearance: well-developed, appears stated age, obese, other (On vent, FiO2 25%) EENT: ATNC, PERRL Neck: other (trached) Respiratory: Present: Clear to Ascultation Cardiology: regular, S1S2, no murmurs Gastrointestinal: normoactive bowel sounds, no tenderness, other (ostomy, G tube noted) Integumentary: no rash Neurologic: other (opens eyes, grimaces) Musculoskeletal: other (bilateral LE 1+ edema) - Lab 10/01/17 05:45 10/02/17 05:00 Most recent lab results ABG pH 7.323 pH Units (7.350-7.450) L 09/09/17 Unknown ABG pCO2 41.1 mm Hg 09/09/17 Unknown ABG pO2 94.1 mm Hg (80.0-90.0) H 09/09/17 Unknown ABG HCO3 20.9 mmol/L (20.0-26.0) 09/09/17 Unknown ABG O2 Saturation 97.2 % (95.0-99.0) 09/09/17 Unknown Calcium 8.4 mg/dL (8.4-10.2) 10/01/17 05:45 Phosphorus 2.40 mg/dL (2.5-4.5) L D 10/01/17 05:45 Magnesium 1.70 mg/dL (1.7-2.3) 10/01/17 05:45
[2017-10-01] MEDS ORDERED: NACL 0.9% 100 ML IV PRN ×2 (07:37→23:11)
[2017-10-01 08:37] LABS: Basophils % (Manual) 0 % (0.0-1.8); Blastocytes % (Manual) 0 %; Eosinophils % (Manual) 0 % (0.0-4.3)
[2017-10-01 08:38] LABS: Anisocytosis 1+; Diff Status Complete; Hypochromasia 1+; Large Platelets Few; Platelet Estimate Consistent w Auto; Poikilocytosis Few; Polychromasia Few; Schistocytes Rare; Spherocytes Few
--- NOTE | 2017-10-01 09:46 | Progress Note ---
Assessment and Plan Assessment: 1) Sepsis with septic shock: noted high fever, leukocytosis better, on minimal pressors amount. Procal = 7-->3. New fever ? unclear etiology 2) Initial Bowel obstruction / suspect ?gastric perforation ? peritonitis -S/P Exlap, G-tube placement, EGD, abdominal washout and removal of PD -OR findings - bowel obstruction due to entanglement of PD cath, abscess cavity in LUQ and ? suspect perforation of unclear location 3) Intiial CA-UTI: chronic ivan exchanged every 4 weeks and ureteral stents in place which are exchanged every 6 months 4) Paraplegia 5) ESRD on PD - now on HD 6) Recent pancreatitis 7) Penicillin allergy-has taken keflex w/o problems 8) Presumed Surgical wound infection / dehiscence ? 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 11) Anemia- severe- Hg 6.7 today 12) Colonic perforation -S/P exlap, transverse colectomy, right sided colostomy and wash out on 09/15 -?presumed leak -surgical wound + Kristine and MDR Acinetobacter 13) Small bowell enterotomy leak / peritonitis s/p wash out / biologic mesh placement / closure of small bowel enterotomy on 09/24 Plan: -f/u new blood cx -get CXR -stop meropenem and fluconazole s/p 7 days ? drug fever -monitor fever off antibiotics -contact isolation -monitor leukocytosis Thank you Dr Chen for your consultation, will follow up with you. Ramya Lang MD Infectious Diseases Specialist [facility] ([facility] M [phone] O [phone] Subjective Date of service: 10/01/17 Principal diagnosis: respiratory failure, sepsis, shock rectal bleeding Interval history: Pt remains on the vent still levophed at 1 mcg on TPN, fentanyl, + fever at 102.9. Microbiology: Blood cultures: 08/08 neg 08/12 neg 08/16 neg 08/20 neg / neg 09/06 neg 09/12 ngtd Urine cultures: 08/08 10-100K skin grace Respiratory cultures: 08/30 tracheal asp MRSA Wound cultures: 08/26 Staph aureus and Kristine 08/28 MRSA, E faecalis, Kristine albicans 09/20 MDR Acinetobacter and Kristine albicans Stool cultures: Other: 08/08 peritoneal fluid + [employer]/Diphteroids Current Antimicrobials: meropenem 09/25 fluconazole 09/24 Previous Antimicrobials: 08/10 levaquin 08/16 vancomycin 08/13 meropenem 08/16 fluconazole Micafungin 08/29 meropenem 08/29 zyvox 09/03 fluconazole 09/03 dapto 09/10 meropenem 09/09-09/22 micafungin 09/11-09/21 Objective - Exam Narrative Exam: General appearance: on the vent via trach Eyes: anicteric sclerae, moist conjunctivae; no lid-lag; PERRLA HENT: Atraumatic; NGT Neck: Trach in place Lungs: moreno rhonchi CV: tachy Abdomen: soft, midline surgical wound + ostomy. MERVIN drains with minimal output, LLQ drain slightly seropurulent, LUQ drain serosanguenous. G tube to OSD with yellow output per surgical eval. Extremities: + peripheral edema + leg ulcer no drainage Skin: right groin old fem line wound no erythema, no drainage Psych: sedated. Neuro: sedated Lines: right IJ vas cath / Right IJ Nair 08/16 - Constitutional Vitals: Vital Signs Temp Pulse Resp BP Pulse Ox 98.6 F 108 H 22 106/52 99 10/01/17 09:00 10/01/17 09:30 10/01/17 09:00 10/01/17 09:30 10/01/17 09:00 Temperature -Last 24 Hours Temperature 98.6 F Temperature 98.6 F Temperature 99.6 F Temperature 100.3 F Temperature 102.9 F Temperature 98.8 F Temperature 98.7 F Temperature 98.7 F - Labs CBC & Chem 7: 10/01/17 05:45 10/01/17 05:45 Labs: Abnormal lab results 09/29/17 09/30/17 09/30/17 Range/Units 11:50 11:24 23:40 WBC (4.5-11.0) K/mm3 RBC (3.65-5.03) M/mm3 Hgb (10.1-14.3) gm/dl Hct (30.3-42.9) % RDW (13.2-15.2) % Seg Neuts % (Manual) (40.0-70.0) % Lymphocytes % (Manual) (13.4-35.0) % Monocytes % (Manual) (0.0-7.3) % Seg Neutrophils # Man (1.8-7.7) K/mm3 Lymphocytes # (Manual) (1.2-5.4) K/mm3 Monocytes # (Manual) (0.0-0.8) K/mm3 BUN (7-17) mg/dL Creatinine (0.7-1.2) mg/dL Glucose (65-100) mg/dL POC Glucose 209 H 197 H 121 H (70-105) Phosphorus (2.5-4.5) mg/dL 10/01/17 10/01/17 10/01/17 Range/Units 05:45 05:45 05:48 WBC 23.0 H (4.5-11.0) K/mm3 RBC 2.60 L (3.65-5.03) M/mm3 Hgb 7.8 L (10.1-14.3) gm/dl Hct 23.8 L (30.3-42.9) % RDW 17.5 H (13.2-15.2) % Seg Neuts % (Manual) 81.0 H (40.0-70.0) % Lymphocytes % (Manual) 2.0 L (13.4-35.0) % Monocytes % (Manual) 10.0 H (0.0-7.3) % Seg Neutrophils # Man 18.6 H (1.8-7.7) K/mm3 Lymphocytes # (Manual) 0.5 L (1.2-5.4) K/mm3 Monocytes # (Manual) 2.3 H (0.0-0.8) K/mm3 BUN 83 H (7-17) mg/dL Creatinine 2.2 H (0.7-1.2) mg/dL Glucose 140 H (65-100) mg/dL POC Glucose 123 H (70-105) Phosphorus 2.40 L D (2.5-4.5) mg/dL
[2017-10-01] MEDS: LEVEMIR SUB-Q SCH (09:51)
[2017-10-01] MEDS: HEPARIN IV PRN (11:27)
--- NOTE | 2017-10-01 11:29 | Progress Note ---
Assessment and Plan 62 y/o female originally admitted with hypotension, now back to ICU secondary to worsening hypotension, concern for sepsis, with acute respiratory failure post-op from ex-lap for abdominal distention and possible ileus, now back from OR after worsening respiratory failure, requiring re-intubation and wash out of abdomen 1. Wean pressors for MAPs >60 2. HD per renal, has been having at least 6x weekly. Stopped midodrine as patient is not likely absorbing 3. Daily PSV trials with hopes of doing 24 hour PSV trial. Rest on rate while on HD 4. Steroids have been discontinued, please attempt to not restart these as surgery feels it is impedeing the healing of the abdominal wound 5. Started tube feeds 09/30 at 10, but already having residuals, will continue to monitor. 6. Once medical issues have concrete plan, should be ready for transfer to [facility] 7. New fever, recultured, agree with ID assessment Overall prognosis is guarded to poor CCT 31 Subjective Date of service: 10/01/17 Principal diagnosis: respiratory failure, sepsis, shock rectal bleeding Interval history: No acute events. Still on levophed. Renal ordered midodrine but patient not tolerating Tube feeds. Per nursing, leaking out of wound. Objective Vital Signs - 12hr 09/30/17 09/30/17 09/30/17 23:30 23:45 23:49 Temperature Pulse Rate 107 H 112 H 108 H Pulse Rate [ Apical] Pulse Rate [ From Monitor] Pulse Rate [ Left Dorsalis Pedis] Pulse Rate [ Left Radial] Pulse Rate [ Right Dorsalis Pedis] Pulse Rate [ Right Radial] Respiratory 22 23 Rate Blood Pressure 85/52 89/37 89/37 O2 Sat by Pulse 98 100 Oximetry O2 Sat by Pulse Oximetry [ Anterior Bilateral Throughout] 10/01/17 10/01/17 10/01/17 00:00 00:15 00:30 Temperature Pulse Rate 116 H 116 H 112 H Pulse Rate [ 103 H Apical] Pulse Rate [ From Monitor] Pulse Rate [ Left Dorsalis Pedis] Pulse Rate [ 103 H Left Radial] Pulse Rate [ 103 H Right Dorsalis Pedis] Pulse Rate [ 103 H Right Radial] Respiratory 32 H 28 H 24 Rate Blood Pressure 90/37 90/40 85/34 O2 Sat by Pulse 98 99 99 Oximetry O2 Sat by Pulse Oximetry [ Anterior Bilateral Throughout] 11/06/1010/01/17 10/01/17 00:45 01:00 01:15 Temperature Pulse Rate 112 H 110 H 104 H Pulse Rate [ Apical] Pulse Rate [ From Monitor] Pulse Rate [ Left Dorsalis Pedis] Pulse Rate [ Left Radial] Pulse Rate [ Right Dorsalis Pedis] Pulse Rate [ Right Radial] Respiratory 30 H 23 25 H Rate Blood Pressure 86/39 84/40 77/40 O2 Sat by Pulse 98 98 97 Oximetry O2 Sat by Pulse Oximetry [ Anterior Bilateral Throughout] 10/01/17 10/01/17 10/01/17 01:30 01:45 02:00 Temperature Pulse Rate 105 H 105 H 101 H Pulse Rate [ Apical] Pulse Rate [ From Monitor] Pulse Rate [ Left Dorsalis Pedis] Pulse Rate [ Left Radial] Pulse Rate [ Right Dorsalis Pedis] Pulse Rate [ Right Radial] Respiratory 33 H 21 22 Rate Blood Pressure 86/47 93/44 88/42 O2 Sat by Pulse 98 98 99 Oximetry O2 Sat by Pulse Oximetry [ Anterior Bilateral Throughout] 10/01/17 10/01/17 10/01/17 02:15 02:30 02:45 Temperature Pulse Rate 105 H 104 H 101 H Pulse Rate [ Apical] Pulse Rate [ From Monitor] Pulse Rate [ Left Dorsalis Pedis] Pulse Rate [ Left Radial] Pulse Rate [ Right Dorsalis Pedis] Pulse Rate [ Right Radial] Respiratory 25 H 22 18 Rate Blood Pressure 102/44 97/46 92/43 O2 Sat by Pulse 97 98 99 Oximetry O2 Sat by Pulse Oximetry [ Anterior Bilateral Throughout] 10/01/17 10/01/17 10/01/17 03:00 03:15 03:17 Temperature 99.6 F Pulse Rate 94 H 97 H Pulse Rate [ Apical] Pulse Rate [ From Monitor] Pulse Rate [ Left Dorsalis Pedis] Pulse Rate [ Left Radial] Pulse Rate [ Right Dorsalis Pedis] Pulse Rate [ Right Radial] Respiratory 22 24 Rate Blood Pressure 92/42 99/45 O2 Sat by Pulse 96 97 Oximetry O2 Sat by Pulse Oximetry [ Anterior Bilateral Throughout] 10/01/17 10/01/17 10/01/17 03:30 03:33 03:45 Temperature Pulse Rate 99 H 100 H Pulse Rate [ 98 H Apical] Pulse Rate [ 98 H From Monitor] Pulse Rate [ 98 H Left Dorsalis Pedis] Pulse Rate [ 98 H Left Radial] Pulse Rate [ 98 H Right Dorsalis Pedis] Pulse Rate [ 98 H Right Radial] Respiratory 25 H 22 Rate Blood Pressure 94/45 95/48 O2 Sat by Pulse 97 100 96 Oximetry O2 Sat by Pulse Oximetry [ Anterior Bilateral Throughout] 10/01/17 10/01/17 10/01/17 03:58 04:00 04:15 Temperature Pulse Rate 110 H 95 H 99 H Pulse Rate [ Apical] Pulse Rate [ From Monitor] Pulse Rate [ Left Dorsalis Pedis] Pulse Rate [ Left Radial] Pulse Rate [ Right Dorsalis Pedis] Pulse Rate [ Right Radial] Respiratory 21 25 H Rate Blood Pressure 90/45 94/48 O2 Sat by Pulse 99 98 97 Oximetry O2 Sat by Pulse Oximetry [ Anterior Bilateral Throughout] 10/01/17 10/01/17 10/01/17 04:30 04:45 05:00 Temperature Pulse Rate 101 H 101 H 99 H Pulse Rate [ Apical] Pulse Rate [ From Monitor] Pulse Rate [ Left Dorsalis Pedis] Pulse Rate [ Left Radial] Pulse Rate [ Right Dorsalis Pedis] Pulse Rate [ Right Radial] Respiratory 26 H 23 19 Rate Blood Pressure 96/49 104/49 96/49 O2 Sat by Pulse 98 99 98 Oximetry O2 Sat by Pulse Oximetry [ Anterior Bilateral Throughout] 10/01/17 10/01/17 10/01/17 05:15 05:30 05:45 Temperature Pulse Rate 93 H 100 H 100 H Pulse Rate [ Apical] Pulse Rate [ From Monitor] Pulse Rate [ Left Dorsalis Pedis] Pulse Rate [ Left Radial] Pulse Rate [ Right Dorsalis Pedis] Pulse Rate [ Right Radial] Respiratory 20 22 24 Rate Blood Pressure 94/44 100/51 102/50 O2 Sat by Pulse 99 99 98 Oximetry O2 Sat by Pulse Oximetry [ Anterior Bilateral Throughout] 10/01/17 10/01/17 10/01/17 06:00 06:15 06:30 Temperature Pulse Rate 100 H 102 H 105 H Pulse Rate [ Apical] Pulse Rate [ From Monitor] Pulse Rate [ Left Dorsalis Pedis] Pulse Rate [ Left Radial] Pulse Rate [ Right Dorsalis Pedis] Pulse Rate [ Right Radial] Respiratory 23 15 17 Rate Blood Pressure 106/51 107/53 112/61 O2 Sat by Pulse 100 99 98 Oximetry O2 Sat by Pulse Oximetry [ Anterior Bilateral Throughout] 10/01/17 10/01/17 10/01/17 06:45 07:00 07:15 Temperature Pulse Rate 99 H 102 H 103 H Pulse Rate [ Apical] Pulse Rate [ From Monitor] Pulse Rate [ Left Dorsalis Pedis] Pulse Rate [ Left Radial] Pulse Rate [ Right Dorsalis Pedis] Pulse Rate [ Right Radial] Respiratory 22 19 25 H Rate Blood Pressure 102/51 99/51 109/53 O2 Sat by Pulse 99 99 98 Oximetry O2 Sat by Pulse Oximetry [ Anterior Bilateral Throughout] 10/01/17 10/01/17 10/01/17 07:30 07:45 08:00 Temperature 98.6 F Pulse Rate 103 H 105 H 103 H Pulse Rate [ Apical] Pulse Rate [ 103 H From Monitor] Pulse Rate [ Left Dorsalis Pedis] Pulse Rate [ Left Radial] Pulse Rate [ Right Dorsalis Pedis] Pulse Rate [ Right Radial] Respiratory 23 24 22 Rate Blood Pressure 106/53 108/46 103/48 O2 Sat by Pulse 99 100 99 Oximetry O2 Sat by Pulse Oximetry [ Anterior Bilateral Throughout] 10/01/17 10/01/17 10/01/17 08:15 08:30 08:45 Temperature Pulse Rate 110 H 107 H 105 H Pulse Rate [ Apical] Pulse Rate [ From Monitor] Pulse Rate [ Left Dorsalis Pedis] Pulse Rate [ Left Radial] Pulse Rate [ Right Dorsalis Pedis] Pulse Rate [ Right Radial] Respiratory 23 21 22 Rate Blood Pressure 103/47 101/53 110/55 O2 Sat by Pulse 100 100 99 Oximetry O2 Sat by Pulse Oximetry [ Anterior Bilateral Throughout] 10/01/17 10/01/17 10/01/17 09:00 09:10 09:15 Temperature 98.6 F Pulse Rate 109 H 109 H 106 H Pulse Rate [ Apical] Pulse Rate [ From Monitor] Pulse Rate [ Left Dorsalis Pedis] Pulse Rate [ Left Radial] Pulse Rate [ Right Dorsalis Pedis] Pulse Rate [ Right Radial] Respiratory 23 26 H Rate Blood Pressure 111/48 111/48 122/48 O2 Sat by Pulse 95 Oximetry O2 Sat by Pulse 99 Oximetry [ Anterior Bilateral Throughout] 10/01/17 10/01/17 10/01/17 09:30 09:31 09:45 Temperature Pulse Rate 108 H 106 H 109 H Pulse Rate [ Apical] Pulse Rate [ From Monitor] Pulse Rate [ Left Dorsalis Pedis] Pulse Rate [ Left Radial] Pulse Rate [ Right Dorsalis Pedis] Pulse Rate [ Right Radial] Respiratory 26 H 14 Rate Blood Pressure 106/52 106/52 106/49 O2 Sat by Pulse 100 88 Oximetry O2 Sat by Pulse Oximetry [ Anterior Bilateral Throughout] 10/01/17 10/01/17 10/01/17 09:49 10:00 10:01 Temperature Pulse Rate 109 H 109 H 109 H Pulse Rate [ Apical] Pulse Rate [ From Monitor] Pulse Rate [ Left Dorsalis Pedis] Pulse Rate [ Left Radial] Pulse Rate [ Right Dorsalis Pedis] Pulse Rate [ Right Radial] Respiratory 25 H Rate Blood Pressure 106/49 92/46 92/46 O2 Sat by Pulse 99 Oximetry O2 Sat by Pulse Oximetry [ Anterior Bilateral Throughout] 10/01/17 10/01/17 10/01/17 10:15 10:16 10:30 Temperature Pulse Rate 113 H 112 H 101 H Pulse Rate [ Apical] Pulse Rate [ From Monitor] Pulse Rate [ Left Dorsalis Pedis] Pulse Rate [ Left Radial] Pulse Rate [ Right Dorsalis Pedis] Pulse Rate [ Right Radial] Respiratory 25 H Rate Blood Pressure 92/46 86/41 90/41 O2 Sat by Pulse 99 Oximetry O2 Sat by Pulse Oximetry [ Anterior Bilateral Throughout] 10/01/17 10/01/17 10/01/17 10:31 10:45 11:01 Temperature Pulse Rate 110 H 111 H 108 H Pulse Rate [ Apical] Pulse Rate [ From Monitor] Pulse Rate [ Left Dorsalis Pedis] Pulse Rate [ Left Radial] Pulse Rate [ Right Dorsalis Pedis] Pulse Rate [ Right Radial] Respiratory 27 H Rate Blood Pressure 83/44 98/46 97/41 O2 Sat by Pulse 95 Oximetry O2 Sat by Pulse Oximetry [ Anterior Bilateral Throughout] 10/01/17 10/01/17 11:15 11:19 Temperature 98.6 F Pulse Rate 111 H 112 H Pulse Rate [ Apical] Pulse Rate [ From Monitor] Pulse Rate [ Left Dorsalis Pedis] Pulse Rate [ Left Radial] Pulse Rate [ Right Dorsalis Pedis] Pulse Rate [ Right Radial] Respiratory 28 H Rate Blood Pressure 111/48 111/48 O2 Sat by Pulse Oximetry O2 Sat by Pulse 99 Oximetry [ Anterior Bilateral Throughout] Constitutional: other (critically ill on vent, obese) Eyes: non-icteric ENT: oropharynx dry Neck: supple, other (trach in position, no bleeding) Effort: normal Ascultation: Bilateral: clear ( ), diminished breath sounds (Limited expansion) , wheezes (faint expiratory wheezes), rhonchi (sporadic), other (coarse BS bilaterally) Cardiovascular: regular rate and rhythm (no mrg) Gastrointestinal: absent bowel sounds, non-tender, other (abdominal incision with dressing , obese. Drain in place, no bleeding; ostomy with brown stool) Integumentary: normal Extremities: no cyanosis, pink and warm, edema Neurologic: non-focal exam, pupils equal and round Psychiatric: mood appropriate, affect normal CBC and BMP: 10/01/17 05:45 10/01/17 05:45 ABG, PT/INR, D-dimer: ABG POC ABG pH 7.347 (7.35-7.45) L 09/13/17 11:36 ABG pH 7.323 pH Units (7.350-7.450) L 09/09/17 Unknown POC ABG pCO2 34.3 (35-45) L 09/13/17 11:36 ABG pCO2 41.1 mm Hg 09/09/17 Unknown POC ABG pO2 134 (80-105) H 09/13/17 11:36 ABG pO2 94.1 mm Hg (80.0-90.0) H 09/09/17 Unknown POC ABG HCO3 18.8 09/13/17 11:36 POC ABG Total CO2 20 09/13/17 11:36 POC ABG O2 Sat 99 09/13/17 11:36 ABG O2 Saturation 97.2 % (95.0-99.0) 09/09/17 Unknown PT/INR, D-dimer PT 14.9 Sec. (12.2-14.9) 09/21/17 07:00 INR 1.11 (0.87-1.13) 09/21/17 07:00 Abnormal lab findings: Abnormal Labs 08/08/17 08/08/17 08/09/17 21:23 21:31 11:19 WBC 15.7 H RBC 2.93 L Hgb 8.7 L Hct 26.8 L MCV MCH MCHC RDW 19.2 H Plt Count Lymph % (Auto) [place] % (Auto) [place] # Seg Neutrophils % Seg Neuts % (Manual) Lymphocytes % (Manual) Monocytes % (Manual) Nucleated RBC % Seg Neutrophils # Seg Neutrophils # Man Lymphocytes # (Manual) Monocytes # (Manual) Eosinophils # (Manual) Basophils # (Manual) PT INR POC ABG pH 7.490 H ABG pH POC ABG pCO2 POC ABG pO2 122 H ABG pO2 ABG O2 Saturation ABG Base Excess ABG Hemoglobin Oxyhemoglobin Sodium Potassium Chloride Carbon Dioxide BUN Creatinine Glucose POC Glucose Calcium Phosphorus Magnesium Iron TIBC Ferritin Total Bilirubin AST ALT Alkaline Phosphatase Total Creatine Kinase Troponin T 0.133 H* C-Reactive Protein Total Protein Albumin Triglycerides HDL Cholesterol 26 L Miscellaneous Test Crossmatch 08/09/17 08/10/17 08/10/17 13:25 04:45 04:45 WBC 15.5 H RBC 2.97 L Hgb 8.9 L Hct 27.0 L MCV MCH MCHC RDW 19.2 H Plt Count Lymph % (Auto) [place] % (Auto) [place] # Seg Neutrophils % Seg Neuts % (Manual) 73.0 H Lymphocytes % (Manual) 7.0 L Monocytes % (Manual) 14.0 H Nucleated RBC % Seg Neutrophils # Seg Neutrophils # Man 11.3 H Lymphocytes # (Manual) 1.1 L Monocytes # (Manual) 2.2 H Eosinophils # (Manual) Basophils # (Manual) 0.2 H PT INR POC ABG pH ABG pH POC ABG pCO2 POC ABG pO2 ABG pO2 ABG O2 Saturation ABG Base Excess ABG Hemoglobin Oxyhemoglobin Sodium Potassium 3.3 L Chloride 97.3 L Carbon Dioxide 21 L BUN 23 H Creatinine 6.5 H Glucose POC Glucose Calcium 7.3 L Phosphorus Magnesium Iron TIBC Ferritin Total Bilirubin AST ALT Alkaline Phosphatase 138 H Total Creatine Kinase Troponin T 0.132 H* C-Reactive Protein Total Protein 4.8 L Albumin 1.4 L Triglycerides HDL Cholesterol Miscellaneous Test Crossmatch 08/11/17 08/11/17 08/12/17 04:00 04:00 05:50 WBC 19.3 H RBC 3.10 L Hgb 9.5 L Hct 28.2 L MCV MCH MCHC RDW 19.2 H Plt Count 463 H Lymph % (Auto) 7.5 L [place] % (Auto) 14.6 H [place] # 2.8 H Seg Neutrophils % 77.0 H Seg Neuts % (Manual) Lymphocytes % (Manual) Monocytes % (Manual) Nucleated RBC % Seg Neutrophils # 14.8 H Seg Neutrophils # Man Lymphocytes # (Manual) Monocytes # (Manual) Eosinophils # (Manual) Basophils # (Manual) PT INR POC ABG pH ABG pH POC ABG pCO2 POC ABG pO2 ABG pO2 ABG O2 Saturation ABG Base Excess ABG Hemoglobin Oxyhemoglobin Sodium 136 L 136 L Potassium 3.3 L Chloride 96.3 L 96.6 L Carbon Dioxide BUN 26 H 26 H Creatinine 6.4 H 6.2 H Glucose 135 H 133 H POC Glucose Calcium 8.2 L Phosphorus Magnesium 1.30 L Iron TIBC Ferritin Total Bilirubin AST ALT Alkaline Phosphatase 139 H Total Creatine Kinase Troponin T C-Reactive Protein Total Protein 5.5 L Albumin 1.7 L Triglycerides HDL Cholesterol Miscellaneous Test Crossmatch 08/12/17 08/12/17 08/12/17 05:50 05:50 05:50 WBC 20.1 H RBC 3.06 L Hgb 9.3 L Hct 27.9 L MCV MCH MCHC RDW 18.4 H Plt Count 471 H Lymph % (Auto) [place] % (Auto) [place] # Seg Neutrophils % Seg Neuts % (Manual) 85.0 H Lymphocytes % (Manual) 8.0 L Monocytes % (Manual) Nucleated RBC % Seg Neutrophils # Seg Neutrophils # Man 17.1 H Lymphocytes # (Manual) Monocytes # (Manual) 1.0 H Eosinophils # (Manual) Basophils # (Manual) PT 15.2 H INR 1.14 H POC ABG pH ABG pH POC ABG pCO2 POC ABG pO2 ABG pO2 ABG O2 Saturation ABG Base Excess ABG Hemoglobin Oxyhemoglobin Sodium Potassium Chloride Carbon Dioxide BUN Creatinine Glucose POC Glucose Calcium Phosphorus Magnesium Iron TIBC Ferritin Total Bilirubin AST ALT Alkaline Phosphatase Total Creatine Kinase Troponin T C-Reactive Protein 28.90 H Total Protein Albumin Triglycerides HDL Cholesterol Miscellaneous Test Crossmatch 08/12/17 08/13/17 08/13/17 16:23 06:14 06:14 WBC 21.8 H RBC 3.11 L Hgb 9.4 L Hct 28.2 L MCV MCH MCHC RDW 18.2 H Plt Count 492 H Lymph % (Auto) [place] % (Auto) [place] # Seg Neutrophils % Seg Neuts % (Manual) 73.0 H Lymphocytes % (Manual) 2.0 L Monocytes % (Manual) 15 H Nucleated RBC % Seg Neutrophils # Seg Neutrophils # Man 15.9 H Lymphocytes # (Manual) 0.4 L Monocytes # (Manual) 2.4 H Eosinophils # (Manual) Basophils # (Manual) PT INR POC ABG pH ABG pH POC ABG pCO2 POC ABG pO2 ABG pO2 ABG O2 Saturation ABG Base Excess ABG Hemoglobin Oxyhemoglobin Sodium Potassium Chloride 96.2 L Carbon Dioxide BUN 28 H Creatinine 5.6 H Glucose 114 H POC Glucose Calcium Phosphorus Magnesium Iron TIBC Ferritin Total Bilirubin AST ALT Alkaline Phosphatase Total Creatine Kinase Troponin T C-Reactive Protein 26.10 H Total Protein Albumin Triglycerides HDL Cholesterol Miscellaneous Test Crossmatch 08/13/17 08/14/17 08/14/17 16:39 04:00 04:00 WBC 22.1 H RBC 3.25 L Hgb 9.9 L Hct 29.5 L MCV MCH MCHC RDW 17.9 H Plt Count 525 H Lymph % (Auto) [place] % (Auto) [place] # Seg Neutrophils % Seg Neuts % (Manual) 74.0 H Lymphocytes % (Manual) 8.0 L Monocytes % (Manual) 12.0 H Nucleated RBC % Seg Neutrophils # Seg Neutrophils # Man 16.4 H Lymphocytes # (Manual) Monocytes # (Manual) 2.7 H Eosinophils # (Manual) Basophils # (Manual) PT INR POC ABG pH ABG pH POC ABG pCO2 POC ABG pO2 ABG pO2 ABG O2 Saturation ABG Base Excess ABG Hemoglobin Oxyhemoglobin Sodium 134 L Potassium 3.3 L Chloride 93.3 L Carbon Dioxide BUN 27 H Creatinine 6.0 H Glucose 152 H POC Glucose 151 H Calcium Phosphorus Magnesium Iron TIBC Ferritin Total Bilirubin AST ALT Alkaline Phosphatase Total Creatine Kinase Troponin T C-Reactive Protein Total Protein Albumin Triglycerides HDL Cholesterol Miscellaneous Test Crossmatch 08/15/17 08/16/17 08/16/17 09:10 09:50 09:50 WBC 31.1 H RBC 3.21 L Hgb 9.6 L Hct 29.3 L MCV MCH MCHC RDW 18.1 H Plt Count 642 H Lymph % (Auto) [place] % (Auto) [place] # Seg Neutrophils % Seg Neuts % (Manual) 74.0 H Lymphocytes % (Manual) 4.0 L Monocytes % (Manual) 9.0 H Nucleated RBC % Seg Neutrophils # Seg Neutrophils # Man 23.0 H Lymphocytes # (Manual) Monocytes # (Manual) 2.8 H Eosinophils # (Manual) Basophils # (Manual) PT INR POC ABG pH ABG pH POC ABG pCO2 POC ABG pO2 ABG pO2 ABG O2 Saturation ABG Base Excess ABG Hemoglobin Oxyhemoglobin Sodium 136 L 136 L Potassium 3.5 L Chloride 97.6 L 94.9 L Carbon Dioxide BUN 27 H 28 H Creatinine 5.6 H 5.5 H Glucose 117 H 103 H POC Glucose Calcium Phosphorus Magnesium Iron TIBC Ferritin Total Bilirubin AST ALT Alkaline Phosphatase 137 H Total Creatine Kinase Troponin T C-Reactive Protein Total Protein 5.4 L Albumin 1.5 L Triglycerides HDL Cholesterol Miscellaneous Test Crossmatch 08/16/17 08/17/17 08/17/17 09:50 05:00 06:26 WBC RBC Hgb Hct MCV MCH MCHC RDW Plt Count Lymph % (Auto) [place] % (Auto) [place] # Seg Neutrophils % Seg Neuts % (Manual) Lymphocytes % (Manual) Monocytes % (Manual) Nucleated RBC % Seg Neutrophils # Seg Neutrophils # Man Lymphocytes # (Manual) Monocytes # (Manual) Eosinophils # (Manual) Basophils # (Manual) PT INR POC ABG pH ABG pH POC ABG pCO2 POC ABG pO2 ABG pO2 ABG O2 Saturation ABG Base Excess ABG Hemoglobin Oxyhemoglobin Sodium 134 L Potassium 3.0 L Chloride 97.8 L Carbon Dioxide BUN 30 H Creatinine 5.3 H Glucose 147 H POC Glucose 165 H Calcium 7.5 L Phosphorus Magnesium Iron TIBC Ferritin Total Bilirubin AST ALT Alkaline Phosphatase Total Creatine Kinase Troponin T C-Reactive Protein 32.30 H Total Protein Albumin Triglycerides HDL Cholesterol Miscellaneous Test Crossmatch 08/17/17 08/17/17 08/17/17 10:56 11:20 11:20 WBC 39.1 H RBC 3.10 L Hgb 9.2 L Hct 28.6 L MCV MCH MCHC RDW 18.3 H Plt Count 580 H Lymph % (Auto) [place] % (Auto) [place] # Seg Neutrophils % Seg Neuts % (Manual) 89.5 H Lymphocytes % (Manual) 3.5 L Monocytes % (Manual) Nucleated RBC % Seg Neutrophils # Seg Neutrophils # Man 35.0 H Lymphocytes # (Manual) Monocytes # (Manual) 2.5 H Eosinophils # (Manual) Basophils # (Manual) 0.2 H PT INR POC ABG pH 7.464 H ABG pH POC ABG pCO2 34.1 L POC ABG pO2 75 L ABG pO2 ABG O2 Saturation ABG Base Excess ABG Hemoglobin Oxyhemoglobin Sodium Potassium Chloride Carbon Dioxide BUN Creatinine Glucose POC Glucose Calcium Phosphorus Magnesium Iron TIBC Ferritin Total Bilirubin AST ALT Alkaline Phosphatase Total Creatine Kinase Troponin T C-Reactive Protein Total Protein Albumin Triglycerides HDL Cholesterol Miscellaneous Test Flexitest 1 H Crossmatch 08/17/17 08/17/17 08/17/17 11:20 16:57 20:20 WBC 34.4 H RBC 2.81 L Hgb 8.4 L Hct 26.0 L MCV MCH MCHC RDW 17.8 H Plt Count 455 H Lymph % (Auto) [place] % (Auto) [place] # Seg Neutrophils % Seg Neuts % (Manual) Lymphocytes % (Manual) 3.5 L Monocytes % (Manual) Nucleated RBC % 5.0 H Seg Neutrophils # Seg Neutrophils # Man 16.5 H Lymphocytes # (Manual) Monocytes # (Manual) 1.0 H Eosinophils # (Manual) Basophils # (Manual) PT 16.0 H INR 1.29 H POC ABG pH ABG pH POC ABG pCO2 POC ABG pO2 ABG pO2 ABG O2 Saturation ABG Base Excess ABG Hemoglobin Oxyhemoglobin Sodium 135 L Potassium 2.9 L* Chloride Carbon Dioxide 20 L BUN 32 H Creatinine 5.4 H Glucose 129 H POC Glucose Calcium 7.5 L Phosphorus Magnesium 1.50 L Iron TIBC Ferritin Total Bilirubin AST 85 H ALT Alkaline Phosphatase Total Creatine Kinase Troponin T C-Reactive Protein Total Protein 4.0 L D Albumin 1.6 L Triglycerides HDL Cholesterol Miscellaneous Test Crossmatch 08/17/17 08/17/17 08/18/17 20:54 23:47 04:26 WBC RBC Hgb Hct MCV MCH MCHC RDW Plt Count Lymph % (Auto) [place] % (Auto) [place] # Seg Neutrophils % Seg Neuts % (Manual) Lymphocytes % (Manual) Monocytes % (Manual) Nucleated RBC % Seg Neutrophils # Seg Neutrophils # Man Lymphocytes # (Manual) Monocytes # (Manual) Eosinophils # (Manual) Basophils # (Manual) PT INR POC ABG pH 7.557 H ABG pH POC ABG pCO2 23.1 L 29.0 L POC ABG pO2 187 H 148 H ABG pO2 ABG O2 Saturation ABG Base Excess ABG Hemoglobin Oxyhemoglobin Sodium Potassium Chloride Carbon Dioxide BUN Creatinine Glucose POC Glucose 188 H Calcium Phosphorus Magnesium Iron TIBC Ferritin Total Bilirubin AST ALT Alkaline Phosphatase Total Creatine Kinase Troponin T C-Reactive Protein Total Protein Albumin Triglycerides HDL Cholesterol Miscellaneous Test Crossmatch 08/18/17 08/18/17 08/18/17 05:51 11:44 17:07 WBC RBC Hgb Hct MCV MCH MCHC RDW Plt Count Lymph % (Auto) [place] % (Auto) [place] # Seg Neutrophils % Seg Neuts % (Manual) Lymphocytes % (Manual) Monocytes % (Manual) Nucleated RBC % Seg Neutrophils # Seg Neutrophils # Man Lymphocytes # (Manual) Monocytes # (Manual) Eosinophils # (Manual) Basophils # (Manual) PT INR POC ABG pH ABG pH POC ABG pCO2 POC ABG pO2 ABG pO2 ABG O2 Saturation ABG Base Excess ABG Hemoglobin Oxyhemoglobin Sodium Potassium Chloride Carbon Dioxide BUN Creatinine Glucose POC Glucose 202 H 195 H 182 H Calcium Phosphorus Magnesium Iron TIBC Ferritin Total Bilirubin AST ALT Alkaline Phosphatase Total Creatine Kinase Troponin T C-Reactive Protein Total Protein Albumin Triglycerides HDL Cholesterol Miscellaneous Test Crossmatch 08/18/17 08/18/17 08/18/17 23:45 Unknown Unknown WBC 39.0 H RBC 2.84 L Hgb 8.4 L Hct 26.5 L MCV MCH MCHC RDW 18.0 H Plt Count 476 H Lymph % (Auto) [place] % (Auto) [place] # Seg Neutrophils % Seg Neuts % (Manual) Lymphocytes % (Manual) 7.0 L Monocytes % (Manual) 10.0 H Nucleated RBC % 3.0 H Seg Neutrophils # Seg Neutrophils # Man 15.6 H Lymphocytes # (Manual) Monocytes # (Manual) 3.9 H Eosinophils # (Manual) Basophils # (Manual) PT INR POC ABG pH ABG pH POC ABG pCO2 POC ABG pO2 ABG pO2 ABG O2 Saturation ABG Base Excess ABG Hemoglobin Oxyhemoglobin Sodium Potassium Chloride Carbon Dioxide 19 L BUN 34 H Creatinine 5.6 H Glucose 201 H POC Glucose 163 H Calcium 7.8 L Phosphorus 1.90 L D Magnesium 1.60 L Iron TIBC Ferritin Total Bilirubin AST ALT Alkaline Phosphatase Total Creatine Kinase Troponin T C-Reactive Protein Total Protein Albumin Triglycerides HDL Cholesterol Miscellaneous Test Crossmatch 08/19/17 08/19/17 08/19/17 04:18 05:00 05:00 WBC 40.0 H RBC 2.46 L Hgb 7.3 L Hct 22.6 L MCV MCH MCHC RDW 18.1 H Plt Count Lymph % (Auto) [place] % (Auto) [place] # Seg Neutrophils % Seg Neuts % (Manual) Lymphocytes % (Manual) 8.0 L Monocytes % (Manual) Nucleated RBC % 2.0 H Seg Neutrophils # Seg Neutrophils # Man 16.4 H Lymphocytes # (Manual) Monocytes # (Manual) 1.2 H Eosinophils # (Manual) 1.2 H Basophils # (Manual) PT INR POC ABG pH 7.463 H ABG pH POC ABG pCO2 29.7 L POC ABG pO2 134 H ABG pO2 ABG O2 Saturation ABG Base Excess ABG Hemoglobin Oxyhemoglobin Sodium Potassium 5.1 H D Chloride Carbon Dioxide 20 L BUN 40 H Creatinine 5.3 H Glucose 128 H POC Glucose Calcium 7.8 L Phosphorus 1.90 L Magnesium Iron TIBC Ferritin Total Bilirubin AST ALT Alkaline Phosphatase Total Creatine Kinase Troponin T C-Reactive Protein Total Protein Albumin Triglycerides HDL Cholesterol Miscellaneous Test Crossmatch 08/19/17 08/19/17 08/19/17 05:19 07:37 09:52 WBC 45.0 H* RBC 2.50 L Hgb 7.5 L Hct 24.5 L MCV 98 H MCH MCHC RDW 18.4 H Plt Count Lymph % (Auto) [place] % (Auto) [place] # Seg Neutrophils % Seg Neuts % (Manual) 81.5 H Lymphocytes % (Manual) 4.0 L Monocytes % (Manual) Nucleated RBC % 1.0 H Seg Neutrophils # Seg Neutrophils # Man 36.7 H Lymphocytes # (Manual) Monocytes # (Manual) Eosinophils # (Manual) Basophils # (Manual) PT INR POC ABG pH ABG pH POC ABG pCO2 POC ABG pO2 ABG pO2 ABG O2 Saturation ABG Base Excess ABG Hemoglobin Oxyhemoglobin Sodium Potassium Chloride Carbon Dioxide BUN Creatinine Glucose POC Glucose 142 H Calcium Phosphorus Magnesium Iron TIBC Ferritin Total Bilirubin AST ALT Alkaline Phosphatase Total Creatine Kinase Troponin T C-Reactive Protein 34.20 H Total Protein Albumin Triglycerides HDL Cholesterol Miscellaneous Test Crossmatch 08/19/17 08/19/17 08/20/17 11:16 18:12 00:35 WBC RBC Hgb Hct MCV MCH MCHC RDW Plt Count Lymph % (Auto) [place] % (Auto) [place] # Seg Neutrophils % Seg Neuts % (Manual) Lymphocytes % (Manual) Monocytes % (Manual) Nucleated RBC % Seg Neutrophils # Seg Neutrophils # Man Lymphocytes # (Manual) Monocytes # (Manual) Eosinophils # (Manual) Basophils # (Manual) PT INR POC ABG pH ABG pH POC ABG pCO2 POC ABG pO2 ABG pO2 ABG O2 Saturation ABG Base Excess ABG Hemoglobin Oxyhemoglobin Sodium Potassium Chloride Carbon Dioxide BUN Creatinine Glucose POC Glucose 143 H 137 H 164 H Calcium Phosphorus Magnesium Iron TIBC Ferritin Total Bilirubin AST ALT Alkaline Phosphatase Total Creatine Kinase Troponin T C-Reactive Protein Total Protein Albumin Triglycerides HDL Cholesterol Miscellaneous Test Crossmatch 08/20/17 08/20/17 08/20/17 03:20 03:20 04:00 WBC 48.0 H* RBC 2.55 L Hgb 7.6 L Hct 23.4 L MCV MCH MCHC RDW 18.4 H Plt Count Lymph % (Auto) [place] % (Auto) [place] # Seg Neutrophils % Seg Neuts % (Manual) 90.0 H Lymphocytes % (Manual) 3.0 L Monocytes % (Manual) Nucleated RBC % Seg Neutrophils # Seg Neutrophils # Man 43.2 H Lymphocytes # (Manual) Monocytes # (Manual) 1.4 H Eosinophils # (Manual) 0.5 H Basophils # (Manual) PT INR POC ABG pH 7.499 H ABG pH POC ABG pCO2 29.1 L POC ABG pO2 ABG pO2 ABG O2 Saturation ABG Base Excess ABG Hemoglobin Oxyhemoglobin Sodium 135 L Potassium Chloride Carbon Dioxide BUN 28 H Creatinine 4.0 H Glucose 140 H POC Glucose Calcium 8.0 L Phosphorus 1.70 L Magnesium 1.60 L Iron TIBC Ferritin Total Bilirubin AST ALT Alkaline Phosphatase Total Creatine Kinase Troponin T C-Reactive Protein Total Protein Albumin Triglycerides HDL Cholesterol Miscellaneous Test Crossmatch 08/20/17 08/20/17 08/20/17 05:02 12:05 13:12 WBC RBC Hgb Hct MCV MCH MCHC RDW Plt Count Lymph % (Auto) [place] % (Auto) [place] # Seg Neutrophils % Seg Neuts % (Manual) Lymphocytes % (Manual) Monocytes % (Manual) Nucleated RBC % Seg Neutrophils # Seg Neutrophils # Man Lymphocytes # (Manual) Monocytes # (Manual) Eosinophils # (Manual) Basophils # (Manual) PT INR POC ABG pH 7.537 H ABG pH POC ABG pCO2 27.9 L POC ABG pO2 79 L ABG pO2 ABG O2 Saturation ABG Base Excess ABG Hemoglobin Oxyhemoglobin Sodium Potassium Chloride Carbon Dioxide BUN Creatinine Glucose POC Glucose 158 H 203 H Calcium Phosphorus Magnesium Iron TIBC Ferritin Total Bilirubin AST ALT Alkaline Phosphatase Total Creatine Kinase Troponin T C-Reactive Protein Total Protein Albumin Triglycerides HDL Cholesterol Miscellaneous Test Crossmatch 08/20/17 08/21/17 08/21/17 17:13 00:47 03:14 WBC RBC Hgb Hct MCV MCH MCHC RDW Plt Count Lymph % (Auto) [place] % (Auto) [place] # Seg Neutrophils % Seg Neuts % (Manual) Lymphocytes % (Manual) Monocytes % (Manual) Nucleated RBC % Seg Neutrophils # Seg Neutrophils # Man Lymphocytes # (Manual) Monocytes # (Manual) Eosinophils # (Manual) Basophils # (Manual) PT INR POC ABG pH 7.481 H ABG pH POC ABG pCO2 29.6 L POC ABG pO2 ABG pO2 ABG O2 Saturation ABG Base Excess ABG Hemoglobin Oxyhemoglobin Sodium Potassium Chloride Carbon Dioxide BUN Creatinine Glucose POC Glucose 188 H 109 H Calcium Phosphorus Magnesium Iron TIBC Ferritin Total Bilirubin AST ALT Alkaline Phosphatase Total Creatine Kinase Troponin T C-Reactive Protein Total Protein Albumin Triglycerides HDL Cholesterol Miscellaneous Test Crossmatch 08/21/17 08/21/17 08/21/17 05:05 06:50 06:50 WBC 44.7 H* RBC 2.41 L Hgb 7.1 L Hct 22.1 L MCV MCH MCHC RDW 18.3 H Plt Count Lymph % (Auto) [place] % (Auto) [place] # Seg Neutrophils % Seg Neuts % (Manual) 89.0 H Lymphocytes % (Manual) 0 L Monocytes % (Manual) Nucleated RBC % 1.0 H Seg Neutrophils # Seg Neutrophils # Man 39.8 H Lymphocytes # (Manual) 0.0 L Monocytes # (Manual) 1.3 H Eosinophils # (Manual) Basophils # (Manual) PT INR POC ABG pH ABG pH POC ABG pCO2 POC ABG pO2 ABG pO2 ABG O2 Saturation ABG Base Excess ABG Hemoglobin Oxyhemoglobin Sodium 135 L Potassium Chloride Carbon Dioxide BUN 39 H Creatinine 4.4 H Glucose 147 H POC Glucose 166 H Calcium 8.1 L Phosphorus Magnesium Iron TIBC Ferritin Total Bilirubin AST ALT < 5 L Alkaline Phosphatase 164 H Total Creatine Kinase Troponin T C-Reactive Protein Total Protein 4.7 L Albumin 1.4 L Triglycerides HDL Cholesterol Miscellaneous Test Crossmatch 08/21/17 08/21/17 08/21/17 08:00 12:21 17:02 WBC RBC Hgb Hct MCV MCH MCHC RDW Plt Count Lymph % (Auto) [place] % (Auto) [place] # Seg Neutrophils % Seg Neuts % (Manual) Lymphocytes % (Manual) Monocytes % (Manual) Nucleated RBC % Seg Neutrophils # Seg Neutrophils # Man Lymphocytes # (Manual) Monocytes # (Manual) Eosinophils # (Manual) Basophils # (Manual) PT INR POC ABG pH ABG pH POC ABG pCO2 POC ABG pO2 ABG pO2 ABG O2 Saturation ABG Base Excess ABG Hemoglobin Oxyhemoglobin Sodium Potassium Chloride Carbon Dioxide BUN Creatinine Glucose POC Glucose 147 H 135 H Calcium Phosphorus Magnesium Iron TIBC Ferritin Total Bilirubin AST ALT Alkaline Phosphatase Total Creatine Kinase Troponin T C-Reactive Protein Total Protein Albumin Triglycerides HDL Cholesterol Miscellaneous Test Crossmatch See Detail 08/21/17 08/22/17 08/22/17 23:38 03:40 03:40 WBC 42.5 H* RBC 2.88 L Hgb 8.5 L Hct 26.3 L MCV MCH MCHC RDW 17.9 H Plt Count Lymph % (Auto) [place] % (Auto) [place] # Seg Neutrophils % Seg Neuts % (Manual) Lymphocytes % (Manual) 5.0 L Monocytes % (Manual) Nucleated RBC % Seg Neutrophils # Seg Neutrophils # Man 19.6 H Lymphocytes # (Manual) Monocytes # (Manual) 2.6 H Eosinophils # (Manual) Basophils # (Manual) PT INR POC ABG pH ABG pH POC ABG pCO2 POC ABG pO2 ABG pO2 ABG O2 Saturation ABG Base Excess ABG Hemoglobin Oxyhemoglobin Sodium Potassium 3.3 L D Chloride Carbon Dioxide BUN 27 H Creatinine 2.9 H Glucose 144 H POC Glucose 251 H Calcium 8.0 L Phosphorus 2.40 L Magnesium Iron TIBC Ferritin Total Bilirubin AST ALT Alkaline Phosphatase Total Creatine Kinase Troponin T C-Reactive Protein Total Protein Albumin Triglycerides HDL Cholesterol Miscellaneous Test Crossmatch 08/22/17 08/22/17 08/22/17 06:37 08:50 11:25 WBC RBC Hgb Hct MCV MCH MCHC RDW Plt Count Lymph % (Auto) [place] % (Auto) [place] # Seg Neutrophils % Seg Neuts % (Manual) Lymphocytes % (Manual) Monocytes % (Manual) Nucleated RBC % Seg Neutrophils # Seg Neutrophils # Man Lymphocytes # (Manual) Monocytes # (Manual) Eosinophils # (Manual) Basophils # (Manual) PT INR POC ABG pH ABG pH POC ABG pCO2 POC ABG pO2 ABG pO2 ABG O2 Saturation ABG Base Excess ABG Hemoglobin Oxyhemoglobin Sodium Potassium Chloride Carbon Dioxide BUN Creatinine Glucose POC Glucose 152 H 175 H Calcium Phosphorus Magnesium Iron TIBC Ferritin Total Bilirubin AST ALT Alkaline Phosphatase Total Creatine Kinase Troponin T C-Reactive Protein Total Protein Albumin Triglycerides HDL Cholesterol Miscellaneous Test Flexitest 1 H Crossmatch 08/22/17 08/22/17 08/22/17 16:25 17:56 23:03 WBC RBC Hgb Hct MCV MCH MCHC RDW Plt Count Lymph % (Auto) [place] % (Auto) [place] # Seg Neutrophils % Seg Neuts % (Manual) Lymphocytes % (Manual) Monocytes % (Manual) Nucleated RBC % Seg Neutrophils # Seg Neutrophils # Man Lymphocytes # (Manual) Monocytes # (Manual) Eosinophils # (Manual) Basophils # (Manual) PT INR POC ABG pH ABG pH POC ABG pCO2 POC ABG pO2 ABG pO2 ABG O2 Saturation ABG Base Excess ABG Hemoglobin Oxyhemoglobin Sodium Potassium Chloride Carbon Dioxide BUN Creatinine Glucose POC Glucose 232 H 192 H Calcium Phosphorus Magnesium Iron TIBC Ferritin Total Bilirubin AST ALT Alkaline Phosphatase Total Creatine Kinase Troponin T C-Reactive Protein 30.70 H Total Protein Albumin Triglycerides HDL Cholesterol Miscellaneous Test Crossmatch 08/23/17 08/23/17 08/23/17 05:36 08:50 12:14 WBC RBC Hgb Hct MCV MCH MCHC RDW Plt Count Lymph % (Auto) [place] % (Auto) [place] # Seg Neutrophils % Seg Neuts % (Manual) Lymphocytes % (Manual) Monocytes % (Manual) Nucleated RBC % Seg Neutrophils # Seg Neutrophils # Man Lymphocytes # (Manual) Monocytes # (Manual) Eosinophils # (Manual) Basophils # (Manual) PT INR POC ABG pH ABG pH POC ABG pCO2 POC ABG pO2 ABG pO2 ABG O2 Saturation ABG Base Excess ABG Hemoglobin Oxyhemoglobin Sodium Potassium Chloride 107.1 H Carbon Dioxide BUN 49 H Creatinine 3.3 H Glucose 172 H POC Glucose 206 H 238 H Calcium Phosphorus Magnesium 2.40 H Iron TIBC Ferritin Total Bilirubin AST ALT Alkaline Phosphatase Total Creatine Kinase Troponin T C-Reactive Protein Total Protein Albumin Triglycerides HDL Cholesterol Miscellaneous Test Crossmatch 08/23/17 08/23/17 08/24/17 17:21 23:13 04:00 WBC 34.2 H RBC 2.86 L Hgb 8.4 L Hct 25.9 L MCV MCH MCHC RDW 17.9 H Plt Count Lymph % (Auto) [place] % (Auto) [place] # Seg Neutrophils % Seg Neuts % (Manual) 85.0 H Lymphocytes % (Manual) 0.5 L Monocytes % (Manual) Nucleated RBC % 1.0 H Seg Neutrophils # Seg Neutrophils # Man 29.1 H Lymphocytes # (Manual) 0.2 L Monocytes # (Manual) 2.4 H Eosinophils # (Manual) Basophils # (Manual) PT INR POC ABG pH ABG pH POC ABG pCO2 POC ABG pO2 ABG pO2 ABG O2 Saturation ABG Base Excess ABG Hemoglobin Oxyhemoglobin Sodium Potassium Chloride Carbon Dioxide BUN Creatinine Glucose POC Glucose 226 H 183 H Calcium Phosphorus Magnesium Iron TIBC Ferritin Total Bilirubin AST ALT Alkaline Phosphatase Total Creatine Kinase Troponin T C-Reactive Protein Total Protein Albumin Triglycerides HDL Cholesterol Miscellaneous Test Crossmatch 08/24/17 08/24/17 08/24/17 05:06 09:30 12:04 WBC RBC Hgb Hct MCV MCH MCHC RDW Plt Count Lymph % (Auto) [place] % (Auto) [place] # Seg Neutrophils % Seg Neuts % (Manual) Lymphocytes % (Manual) Monocytes % (Manual) Nucleated RBC % Seg Neutrophils # Seg Neutrophils # Man Lymphocytes # (Manual) Monocytes # (Manual) Eosinophils # (Manual) Basophils # (Manual) PT INR POC ABG pH ABG pH POC ABG pCO2 POC ABG pO2 ABG pO2 ABG O2 Saturation ABG Base Excess ABG Hemoglobin Oxyhemoglobin Sodium Potassium Chloride Carbon Dioxide BUN 46 H Creatinine 2.5 H Glucose 176 H POC Glucose 201 H 181 H Calcium Phosphorus Magnesium Iron TIBC Ferritin Total Bilirubin AST ALT Alkaline Phosphatase Total Creatine Kinase Troponin T C-Reactive Protein Total Protein Albumin Triglycerides HDL Cholesterol Miscellaneous Test Crossmatch 08/24/17 08/24/17 08/25/17 18:04 23:05 05:05 WBC RBC Hgb Hct MCV MCH MCHC RDW Plt Count Lymph % (Auto) [place] % (Auto) [place] # Seg Neutrophils % Seg Neuts % (Manual) Lymphocytes % (Manual) Monocytes % (Manual) Nucleated RBC % Seg Neutrophils # Seg Neutrophils # Man Lymphocytes # (Manual) Monocytes # (Manual) Eosinophils # (Manual) Basophils # (Manual) PT INR POC ABG pH ABG pH POC ABG pCO2 POC ABG pO2 ABG pO2 ABG O2 Saturation ABG Base Excess ABG Hemoglobin Oxyhemoglobin Sodium Potassium Chloride Carbon Dioxide BUN Creatinine Glucose POC Glucose 189 H 175 H 190 H Calcium Phosphorus Magnesium Iron TIBC Ferritin Total Bilirubin AST ALT Alkaline Phosphatase Total Creatine Kinase Troponin T C-Reactive Protein Total Protein Albumin Triglycerides HDL Cholesterol Miscellaneous Test Crossmatch 08/25/17 08/25/17 08/26/17 07:02 11:53 05:30 WBC 33.5 H RBC 2.47 L Hgb 7.3 L Hct 23.0 L MCV MCH MCHC RDW 21.3 H Plt Count Lymph % (Auto) [place] % (Auto) [place] # Seg Neutrophils % Seg Neuts % (Manual) 92.0 H Lymphocytes % (Manual) 1.0 L Monocytes % (Manual) Nucleated RBC % Seg Neutrophils # Seg Neutrophils # Man 30.8 H Lymphocytes # (Manual) 0.3 L Monocytes # (Manual) Eosinophils # (Manual) Basophils # (Manual) PT INR POC ABG pH ABG pH POC ABG pCO2 POC ABG pO2 ABG pO2 ABG O2 Saturation ABG Base Excess ABG Hemoglobin Oxyhemoglobin Sodium Potassium Chloride Carbon Dioxide BUN 32 H Creatinine 5.0 H D Glucose 117 H POC Glucose 191 H Calcium 8.0 L Phosphorus Magnesium Iron TIBC Ferritin Total Bilirubin AST ALT Alkaline Phosphatase Total Creatine Kinase Troponin T C-Reactive Protein Total Protein Albumin Triglycerides HDL Cholesterol Miscellaneous Test Crossmatch 08/26/17 08/26/17 08/26/17 05:30 06:44 13:26 WBC RBC Hgb Hct MCV MCH MCHC RDW Plt Count Lymph % (Auto) [place] % (Auto) [place] # Seg Neutrophils % Seg Neuts % (Manual) Lymphocytes % (Manual) Monocytes % (Manual) Nucleated RBC % Seg Neutrophils # Seg Neutrophils # Man Lymphocytes # (Manual) Monocytes # (Manual) Eosinophils # (Manual) Basophils # (Manual) PT INR POC ABG pH ABG pH POC ABG pCO2 POC ABG pO2 ABG pO2 ABG O2 Saturation ABG Base Excess ABG Hemoglobin Oxyhemoglobin Sodium Potassium 5.2 H Chloride Carbon Dioxide BUN 80 H Creatinine 3.4 H Glucose 193 H POC Glucose 232 H 207 H Calcium 8.3 L Phosphorus 6.80 H D Magnesium 2.60 H Iron TIBC Ferritin Total Bilirubin AST 135 H ALT Alkaline Phosphatase 211 H Total Creatine Kinase Troponin T C-Reactive Protein Total Protein 4.8 L Albumin 2.0 L Triglycerides HDL Cholesterol Miscellaneous Test Crossmatch 08/27/17 08/27/17 08/27/17 01:08 06:20 06:20 WBC 35.0 H RBC 2.75 L Hgb 8.4 L Hct 25.1 L MCV MCH MCHC RDW 21.8 H Plt Count Lymph % (Auto) [place] % (Auto) [place] # Seg Neutrophils % Seg Neuts % (Manual) Lymphocytes % (Manual) 4.5 L Monocytes % (Manual) Nucleated RBC % Seg Neutrophils # Seg Neutrophils # Man 31.9 H Lymphocytes # (Manual) Monocytes # (Manual) 1.2 H Eosinophils # (Manual) Basophils # (Manual) PT INR POC ABG pH ABG pH POC ABG pCO2 POC ABG pO2 ABG pO2 ABG O2 Saturation ABG Base Excess ABG Hemoglobin Oxyhemoglobin Sodium Potassium Chloride Carbon Dioxide BUN 61 H Creatinine 2.6 H Glucose 184 H POC Glucose 146 H Calcium Phosphorus 4.90 H D Magnesium Iron TIBC Ferritin Total Bilirubin AST ALT Alkaline Phosphatase Total Creatine Kinase Troponin T C-Reactive Protein Total Protein Albumin Triglycerides HDL Cholesterol Miscellaneous Test Crossmatch 08/27/17 08/27/17 08/27/17 07:01 09:17 12:52 WBC RBC Hgb Hct MCV MCH MCHC RDW Plt Count Lymph % (Auto) [place] % (Auto) [place] # Seg Neutrophils % Seg Neuts % (Manual) Lymphocytes % (Manual) Monocytes % (Manual) Nucleated RBC % Seg Neutrophils # Seg Neutrophils # Man Lymphocytes # (Manual) Monocytes # (Manual) Eosinophils # (Manual) Basophils # (Manual) PT INR POC ABG pH ABG pH POC ABG pCO2 POC ABG pO2 ABG pO2 ABG O2 Saturation ABG Base Excess ABG Hemoglobin Oxyhemoglobin Sodium Potassium Chloride Carbon Dioxide BUN Creatinine Glucose POC Glucose 165 H 198 H 218 H Calcium Phosphorus Magnesium Iron TIBC Ferritin Total Bilirubin AST ALT Alkaline Phosphatase Total Creatine Kinase Troponin T C-Reactive Protein Total Protein Albumin Triglycerides HDL Cholesterol Miscellaneous Test Crossmatch 08/27/17 08/28/17 08/28/17 17:27 02:13 06:46 WBC RBC Hgb Hct MCV MCH MCHC RDW Plt Count Lymph % (Auto) [place] % (Auto) [place] # Seg Neutrophils % Seg Neuts % (Manual) Lymphocytes % (Manual) Monocytes % (Manual) Nucleated RBC % Seg Neutrophils # Seg Neutrophils # Man Lymphocytes # (Manual) Monocytes # (Manual) Eosinophils # (Manual) Basophils # (Manual) PT INR POC ABG pH ABG pH POC ABG pCO2 POC ABG pO2 ABG pO2 ABG O2 Saturation ABG Base Excess ABG Hemoglobin Oxyhemoglobin Sodium Potassium Chloride Carbon Dioxide BUN Creatinine Glucose POC Glucose 151 H 155 H 230 H Calcium Phosphorus Magnesium Iron TIBC Ferritin Total Bilirubin AST ALT Alkaline Phosphatase Total Creatine Kinase Troponin T C-Reactive Protein Total Protein Albumin Triglycerides HDL Cholesterol Miscellaneous Test Crossmatch 08/28/17 08/28/17 08/28/17 06:53 06:53 08:19 WBC 31.1 H RBC 2.26 L Hgb 6.8 L Hct 20.9 L MCV MCH MCHC RDW 21.7 H Plt Count Lymph % (Auto) [place] % (Auto) [place] # Seg Neutrophils % Seg Neuts % (Manual) 83.0 H Lymphocytes % (Manual) 4.0 L Monocytes % (Manual) Nucleated RBC % Seg Neutrophils # Seg Neutrophils # Man 25.8 H Lymphocytes # (Manual) Monocytes # (Manual) Eosinophils # (Manual) Basophils # (Manual) PT INR POC ABG pH ABG pH POC ABG pCO2 POC ABG pO2 ABG pO2 ABG O2 Saturation ABG Base Excess ABG Hemoglobin Oxyhemoglobin Sodium Potassium Chloride Carbon Dioxide BUN 81 H Creatinine 3.4 H Glucose 218 H POC Glucose 239 H Calcium Phosphorus 4.90 H Magnesium Iron TIBC Ferritin Total Bilirubin AST ALT Alkaline Phosphatase Total Creatine Kinase Troponin T C-Reactive Protein Total Protein Albumin Triglycerides HDL Cholesterol Miscellaneous Test Crossmatch 08/28/17 08/28/17 08/28/17 11:56 13:05 13:29 WBC RBC Hgb Hct MCV MCH MCHC RDW Plt Count Lymph % (Auto) [place] % (Auto) [place] # Seg Neutrophils % Seg Neuts % (Manual) Lymphocytes % (Manual) Monocytes % (Manual) Nucleated RBC % Seg Neutrophils # Seg Neutrophils # Man Lymphocytes # (Manual) Monocytes # (Manual) Eosinophils # (Manual) Basophils # (Manual) PT 16.7 H INR 1.29 H POC ABG pH ABG pH POC ABG pCO2 POC ABG pO2 338 H ABG pO2 ABG O2 Saturation ABG Base Excess ABG Hemoglobin Oxyhemoglobin Sodium Potassium Chloride Carbon Dioxide BUN Creatinine Glucose POC Glucose Calcium Phosphorus Magnesium Iron TIBC Ferritin Total Bilirubin AST ALT Alkaline Phosphatase Total Creatine Kinase Troponin T C-Reactive Protein Total Protein Albumin Triglycerides HDL Cholesterol Miscellaneous Test Crossmatch See Detail 08/28/17 08/28/17 08/29/17 16:22 19:20 04:24 WBC RBC Hgb Hct MCV MCH MCHC RDW Plt Count Lymph % (Auto) [place] % (Auto) [place] # Seg Neutrophils % Seg Neuts % (Manual) Lymphocytes % (Manual) Monocytes % (Manual) Nucleated RBC % Seg Neutrophils # Seg Neutrophils # Man Lymphocytes # (Manual) Monocytes # (Manual) Eosinophils # (Manual) Basophils # (Manual) PT INR POC ABG pH 7.469 H ABG pH POC ABG pCO2 POC ABG pO2 240 H ABG pO2 ABG O2 Saturation ABG Base Excess ABG Hemoglobin Oxyhemoglobin Sodium Potassium Chloride Carbon Dioxide BUN Creatinine Glucose POC Glucose 209 H 195 H Calcium Phosphorus Magnesium Iron TIBC Ferritin Total Bilirubin AST ALT Alkaline Phosphatase Total Creatine Kinase Troponin T C-Reactive Protein Total Protein Albumin Triglycerides HDL Cholesterol Miscellaneous Test Crossmatch 08/29/17 08/29/17 08/29/17 04:30 04:30 12:07 WBC 44.9 H* RBC Hgb Hct MCV MCH MCHC RDW 23.1 H Plt Count Lymph % (Auto) [place] % (Auto) [place] # Seg Neutrophils % Seg Neuts % (Manual) 38.0 L Lymphocytes % (Manual) 10.0 L Monocytes % (Manual) 10.0 H Nucleated RBC % 6.0 H Seg Neutrophils # Seg Neutrophils # Man 17.1 H Lymphocytes # (Manual) Monocytes # (Manual) 4.5 H Eosinophils # (Manual) Basophils # (Manual) PT INR POC ABG pH ABG pH POC ABG pCO2 POC ABG pO2 ABG pO2 ABG O2 Saturation ABG Base Excess ABG Hemoglobin Oxyhemoglobin Sodium Potassium Chloride Carbon Dioxide BUN 61 H Creatinine 2.4 H Glucose 226 H POC Glucose 200 H Calcium Phosphorus Magnesium Iron TIBC Ferritin Total Bilirubin AST ALT Alkaline Phosphatase Total Creatine Kinase Troponin T C-Reactive Protein Total Protein Albumin Triglycerides HDL Cholesterol Miscellaneous Test Crossmatch 08/29/17 08/29/17 08/29/17 12:30 12:30 17:23 WBC RBC Hgb Hct MCV MCH MCHC RDW Plt Count Lymph % (Auto) [place] % (Auto) [place] # Seg Neutrophils % Seg Neuts % (Manual) Lymphocytes % (Manual) Monocytes % (Manual) Nucleated RBC % Seg Neutrophils # Seg Neutrophils # Man Lymphocytes # (Manual) Monocytes # (Manual) Eosinophils # (Manual) Basophils # (Manual) PT INR POC ABG pH ABG pH POC ABG pCO2 POC ABG pO2 ABG pO2 ABG O2 Saturation ABG Base Excess ABG Hemoglobin Oxyhemoglobin Sodium Potassium Chloride Carbon Dioxide BUN Creatinine Glucose POC Glucose 270 H Calcium Phosphorus Magnesium Iron TIBC Ferritin Total Bilirubin AST ALT Alkaline Phosphatase Total Creatine Kinase Troponin T C-Reactive Protein 19.10 H Total Protein Albumin Triglycerides HDL Cholesterol Miscellaneous Test Flexitest 1 H Crossmatch 08/30/17 08/30/17 08/30/17 00:10 01:30 03:31 WBC RBC Hgb Hct MCV MCH MCHC RDW Plt Count Lymph % (Auto) [place] % (Auto) [place] # Seg Neutrophils % Seg Neuts % (Manual) Lymphocytes % (Manual) Monocytes % (Manual) Nucleated RBC % Seg Neutrophils # Seg Neutrophils # Man Lymphocytes # (Manual) Monocytes # (Manual) Eosinophils # (Manual) Basophils # (Manual) PT INR POC ABG pH 7.168 L 7.335 L ABG pH POC ABG pCO2 72.8 H POC ABG pO2 257 H 117 H ABG pO2 ABG O2 Saturation ABG Base Excess ABG Hemoglobin Oxyhemoglobin Sodium Potassium Chloride Carbon Dioxide BUN Creatinine Glucose POC Glucose 245 H Calcium Phosphorus Magnesium Iron TIBC Ferritin Total Bilirubin AST ALT Alkaline Phosphatase Total Creatine Kinase Troponin T C-Reactive Protein Total Protein Albumin Triglycerides HDL Cholesterol Miscellaneous Test Crossmatch 08/30/17 08/30/17 08/30/17 05:20 05:20 05:20 WBC 40.9 H* RBC 3.64 L Hgb Hct MCV MCH MCHC RDW 24.3 H Plt Count Lymph % (Auto) [place] % (Auto) [place] # Seg Neutrophils % Seg Neuts % (Manual) 80.0 H Lymphocytes % (Manual) 3.0 L Monocytes % (Manual) Nucleated RBC % 1.0 H Seg Neutrophils # Seg Neutrophils # Man 32.7 H Lymphocytes # (Manual) Monocytes # (Manual) Eosinophils # (Manual) Basophils # (Manual) PT INR POC ABG pH ABG pH POC ABG pCO2 POC ABG pO2 ABG pO2 ABG O2 Saturation ABG Base Excess ABG Hemoglobin Oxyhemoglobin Sodium Potassium Chloride Carbon Dioxide BUN 83 H Creatinine 2.9 H Glucose 334 H POC Glucose 309 H Calcium Phosphorus Magnesium Iron TIBC Ferritin Total Bilirubin AST ALT Alkaline Phosphatase Total Creatine Kinase Troponin T C-Reactive Protein Total Protein Albumin Triglycerides HDL Cholesterol Miscellaneous Test Crossmatch 08/30/17 08/30/17 08/31/17 12:18 17:36 00:17 WBC RBC Hgb Hct MCV MCH MCHC RDW Plt Count Lymph % (Auto) [place] % (Auto) [place] # Seg Neutrophils % Seg Neuts % (Manual) Lymphocytes % (Manual) Monocytes % (Manual) Nucleated RBC % Seg Neutrophils # Seg Neutrophils # Man Lymphocytes # (Manual) Monocytes # (Manual) Eosinophils # (Manual) Basophils # (Manual) PT INR POC ABG pH ABG pH POC ABG pCO2 POC ABG pO2 ABG pO2 ABG O2 Saturation ABG Base Excess ABG Hemoglobin Oxyhemoglobin Sodium Potassium Chloride Carbon Dioxide BUN Creatinine Glucose POC Glucose 273 H 293 H 360 H Calcium Phosphorus Magnesium Iron TIBC Ferritin Total Bilirubin AST ALT Alkaline Phosphatase Total Creatine Kinase Troponin T C-Reactive Protein Total Protein Albumin Triglycerides HDL Cholesterol Miscellaneous Test Crossmatch 08/31/17 08/31/17 08/31/17 05:30 05:30 05:32 WBC 29.9 H RBC 2.89 L Hgb 8.2 L Hct 24.7 L D MCV MCH MCHC RDW 24.4 H Plt Count Lymph % (Auto) [place] % (Auto) [place] # Seg Neutrophils % Seg Neuts % (Manual) Lymphocytes % (Manual) 2.0 L Monocytes % (Manual) Nucleated RBC % 2.0 H Seg Neutrophils # Seg Neutrophils # Man 18.5 H Lymphocytes # (Manual) 0.6 L Monocytes # (Manual) 0.9 H Eosinophils # (Manual) Basophils # (Manual) PT INR POC ABG pH ABG pH POC ABG pCO2 POC ABG pO2 ABG pO2 ABG O2 Saturation ABG Base Excess ABG Hemoglobin Oxyhemoglobin Sodium Potassium Chloride Carbon Dioxide BUN 62 H Creatinine 2.2 H Glucose 245 H POC Glucose 257 H Calcium Phosphorus 2.10 L D Magnesium 1.60 L Iron TIBC Ferritin Total Bilirubin AST ALT Alkaline Phosphatase Total Creatine Kinase Troponin T C-Reactive Protein Total Protein Albumin Triglycerides HDL Cholesterol Miscellaneous Test Crossmatch 08/31/17 08/31/17 08/31/17 11:56 12:05 18:14 WBC 32.5 H RBC 3.19 L Hgb 8.8 L Hct 27.9 L MCV MCH MCHC RDW 24.9 H Plt Count Lymph % (Auto) [place] % (Auto) [place] # Seg Neutrophils % Seg Neuts % (Manual) Lymphocytes % (Manual) 1.0 L Monocytes % (Manual) 12.0 H Nucleated RBC % 1.0 H Seg Neutrophils # Seg Neutrophils # Man 13.3 H Lymphocytes # (Manual) 0.3 L Monocytes # (Manual) 3.9 H Eosinophils # (Manual) Basophils # (Manual) PT INR POC ABG pH ABG pH POC ABG pCO2 POC ABG pO2 ABG pO2 ABG O2 Saturation ABG Base Excess ABG Hemoglobin Oxyhemoglobin Sodium Potassium Chloride Carbon Dioxide BUN Creatinine Glucose POC Glucose 245 H Calcium Phosphorus Magnesium Iron TIBC Ferritin Total Bilirubin AST ALT Alkaline Phosphatase Total Creatine Kinase Troponin T C-Reactive Protein Total Protein Albumin Triglycerides HDL Cholesterol Miscellaneous Test Crossmatch See Detail 08/31/17 08/31/17 08/31/17 18:14 18:15 18:22 WBC RBC Hgb Hct MCV MCH MCHC RDW Plt Count Lymph % (Auto) [place] % (Auto) [place] # Seg Neutrophils % Seg Neuts % (Manual) Lymphocytes % (Manual) Monocytes % (Manual) Nucleated RBC % Seg Neutrophils # Seg Neutrophils # Man Lymphocytes # (Manual) Monocytes # (Manual) Eosinophils # (Manual) Basophils # (Manual) PT 15.1 H INR POC ABG pH ABG pH POC ABG pCO2 POC ABG pO2 ABG pO2 ABG O2 Saturation ABG Base Excess ABG Hemoglobin Oxyhemoglobin Sodium 136 L Potassium Chloride Carbon Dioxide 21 L BUN 69 H Creatinine 2.3 H Glucose 227 H POC Glucose 240 H Calcium Phosphorus 2.40 L Magnesium 1.50 L Iron TIBC Ferritin Total Bilirubin AST 143 H ALT 114 H Alkaline Phosphatase 267 H Total Creatine Kinase Troponin T C-Reactive Protein Total Protein 4.1 L Albumin 1.8 L Triglycerides HDL Cholesterol Miscellaneous Test Crossmatch 08/31/17 09/01/17 09/01/17 23:53 05:00 05:00 WBC 33.9 H RBC 2.85 L Hgb 7.8 L Hct 24.8 L MCV MCH 27 L MCHC RDW 23.9 H Plt Count Lymph % (Auto) [place] % (Auto) [place] # Seg Neutrophils % Seg Neuts % (Manual) Lymphocytes % (Manual) 5.0 L Monocytes % (Manual) Nucleated RBC % Seg Neutrophils # Seg Neutrophils # Man 23.1 H Lymphocytes # (Manual) Monocytes # (Manual) Eosinophils # (Manual) Basophils # (Manual) PT INR POC ABG pH ABG pH POC ABG pCO2 POC ABG pO2 ABG pO2 ABG O2 Saturation ABG Base Excess ABG Hemoglobin Oxyhemoglobin Sodium Potassium Chloride Carbon Dioxide BUN 51 H Creatinine 1.8 H Glucose 195 H POC Glucose 301 H Calcium Phosphorus 1.70 L D Magnesium 1.60 L Iron TIBC Ferritin Total Bilirubin AST 80 H ALT 82 H Alkaline Phosphatase 243 H Total Creatine Kinase Troponin T C-Reactive Protein Total Protein 4.2 L Albumin 1.7 L Triglycerides HDL Cholesterol Miscellaneous Test Crossmatch 09/01/17 09/01/17 09/01/17 05:20 05:47 11:37 WBC RBC Hgb Hct MCV MCH MCHC RDW Plt Count Lymph % (Auto) [place] % (Auto) [place] # Seg Neutrophils % Seg Neuts % (Manual) Lymphocytes % (Manual) Monocytes % (Manual) Nucleated RBC % Seg Neutrophils # Seg Neutrophils # Man Lymphocytes # (Manual) Monocytes # (Manual) Eosinophils # (Manual) Basophils # (Manual) PT INR POC ABG pH ABG pH 7.348 L POC ABG pCO2 POC ABG pO2 ABG pO2 70.2 L ABG O2 Saturation ABG Base Excess ABG Hemoglobin 7.5 L Oxyhemoglobin Sodium Potassium Chloride Carbon Dioxide BUN Creatinine Glucose POC Glucose 230 H 254 H Calcium Phosphorus Magnesium Iron TIBC Ferritin Total Bilirubin AST ALT Alkaline Phosphatase Total Creatine Kinase Troponin T C-Reactive Protein Total Protein Albumin Triglycerides HDL Cholesterol Miscellaneous Test Crossmatch 09/01/17 09/01/17 09/02/17 17:39 23:14 04:55 WBC RBC Hgb Hct MCV MCH MCHC RDW Plt Count Lymph % (Auto) [place] % (Auto) [place] # Seg Neutrophils % Seg Neuts % (Manual) Lymphocytes % (Manual) Monocytes % (Manual) Nucleated RBC % Seg Neutrophils # Seg Neutrophils # Man Lymphocytes # (Manual) Monocytes # (Manual) Eosinophils # (Manual) Basophils # (Manual) PT INR POC ABG pH ABG pH POC ABG pCO2 POC ABG pO2 ABG pO2 124.8 H ABG O2 Saturation ABG Base Excess -2.9 L ABG Hemoglobin 5.8 L Oxyhemoglobin Sodium Potassium Chloride Carbon Dioxide BUN Creatinine Glucose POC Glucose 297 H 291 H Calcium Phosphorus Magnesium Iron TIBC Ferritin Total Bilirubin AST ALT Alkaline Phosphatase Total Creatine Kinase Troponin T C-Reactive Protein Total Protein Albumin Triglycerides HDL Cholesterol Miscellaneous Test Crossmatch 09/02/17 09/02/17 09/02/17 05:31 06:10 11:58 WBC RBC Hgb Hct MCV MCH MCHC RDW Plt Count Lymph % (Auto) [place] % (Auto) [place] # Seg Neutrophils % Seg Neuts % (Manual) Lymphocytes % (Manual) Monocytes % (Manual) Nucleated RBC % Seg Neutrophils # Seg Neutrophils # Man Lymphocytes # (Manual) Monocytes # (Manual) Eosinophils # (Manual) Basophils # (Manual) PT INR POC ABG pH ABG pH POC ABG pCO2 POC ABG pO2 ABG pO2 ABG O2 Saturation ABG Base Excess ABG Hemoglobin Oxyhemoglobin Sodium Potassium Chloride Carbon Dioxide BUN 68 H Creatinine 2.2 H Glucose 369 H POC Glucose 245 H 333 H Calcium 8.2 L Phosphorus Magnesium Iron TIBC Ferritin Total Bilirubin AST ALT Alkaline Phosphatase Total Creatine Kinase Troponin T C-Reactive Protein Total Protein Albumin Triglycerides HDL Cholesterol Miscellaneous Test Crossmatch 09/02/17 09/02/17 09/03/17 15:37 23:50 04:00 WBC RBC Hgb Hct MCV MCH MCHC RDW Plt Count Lymph % (Auto) [place] % (Auto) [place] # Seg Neutrophils % Seg Neuts % (Manual) Lymphocytes % (Manual) Monocytes % (Manual) Nucleated RBC % Seg Neutrophils # Seg Neutrophils # Man Lymphocytes # (Manual) Monocytes # (Manual) Eosinophils # (Manual) Basophils # (Manual) PT INR POC ABG pH ABG pH POC ABG pCO2 POC ABG pO2 ABG pO2 ABG O2 Saturation ABG Base Excess ABG Hemoglobin Oxyhemoglobin Sodium Potassium Chloride Carbon Dioxide BUN 59 H Creatinine 1.9 H Glucose 231 H POC Glucose 314 H 240 H Calcium 8.0 L Phosphorus Magnesium Iron TIBC Ferritin Total Bilirubin AST ALT Alkaline Phosphatase 265 H Total Creatine Kinase Troponin T C-Reactive Protein Total Protein 4.4 L Albumin 1.7 L Triglycerides 180 H HDL Cholesterol Miscellaneous Test Crossmatch 09/03/17 09/03/17 09/03/17 05:00 05:32 11:52 WBC 41.5 H* RBC 2.46 L Hgb 6.9 L Hct 21.3 L MCV MCH MCHC RDW 24.9 H Plt Count Lymph % (Auto) [place] % (Auto) [place] # Seg Neutrophils % Seg Neuts % (Manual) Lymphocytes % (Manual) 3.0 L Monocytes % (Manual) 9.5 H Nucleated RBC % 1.5 H Seg Neutrophils # Seg Neutrophils # Man 28.8 H Lymphocytes # (Manual) Monocytes # (Manual) 3.9 H Eosinophils # (Manual) Basophils # (Manual) PT INR POC ABG pH ABG pH POC ABG pCO2 POC ABG pO2 ABG pO2 ABG O2 Saturation ABG Base Excess ABG Hemoglobin Oxyhemoglobin Sodium Potassium Chloride Carbon Dioxide BUN Creatinine Glucose POC Glucose 188 H 285 H Calcium Phosphorus Magnesium Iron TIBC Ferritin Total Bilirubin AST ALT Alkaline Phosphatase Total Creatine Kinase Troponin T C-Reactive Protein Total Protein Albumin Triglycerides HDL Cholesterol Miscellaneous Test Crossmatch 09/03/17 09/03/17 09/03/17 16:55 17:44 23:56 WBC RBC Hgb Hct MCV MCH MCHC RDW Plt Count Lymph % (Auto) [place] % (Auto) [place] # Seg Neutrophils % Seg Neuts % (Manual) Lymphocytes % (Manual) Monocytes % (Manual) Nucleated RBC % Seg Neutrophils # Seg Neutrophils # Man Lymphocytes # (Manual) Monocytes # (Manual) Eosinophils # (Manual) Basophils # (Manual) PT INR POC ABG pH ABG pH POC ABG pCO2 POC ABG pO2 ABG pO2 ABG O2 Saturation ABG Base Excess ABG Hemoglobin Oxyhemoglobin Sodium Potassium Chloride Carbon Dioxide BUN Creatinine Glucose POC Glucose 217 H 193 H Calcium Phosphorus Magnesium Iron TIBC Ferritin Total Bilirubin AST ALT Alkaline Phosphatase Total Creatine Kinase Troponin T C-Reactive Protein Total Protein Albumin Triglycerides HDL Cholesterol Miscellaneous Test Crossmatch See Detail 09/03/17 09/04/17 09/04/17 Unknown 03:47 04:32 WBC 44.7 H* RBC 3.12 L Hgb 8.7 L Hct 26.7 L MCV MCH MCHC RDW 23.5 H Plt Count Lymph % (Auto) [place] % (Auto) [place] # Seg Neutrophils % Seg Neuts % (Manual) Lymphocytes % (Manual) 4.0 L Monocytes % (Manual) Nucleated RBC % 2.0 H Seg Neutrophils # Seg Neutrophils # Man 30.8 H Lymphocytes # (Manual) Monocytes # (Manual) 2.2 H Eosinophils # (Manual) Basophils # (Manual) PT INR POC ABG pH ABG pH POC ABG pCO2 POC ABG pO2 ABG pO2 133.4 H 135.0 H ABG O2 Saturation ABG Base Excess -2.5 L ABG Hemoglobin 5.8 L 7.9 L Oxyhemoglobin Sodium Potassium Chloride Carbon Dioxide BUN Creatinine Glucose POC Glucose Calcium Phosphorus Magnesium Iron TIBC Ferritin Total Bilirubin AST ALT Alkaline Phosphatase Total Creatine Kinase Troponin T C-Reactive Protein Total Protein Albumin Triglycerides HDL Cholesterol Miscellaneous Test Crossmatch 09/04/17 09/04/17 09/04/17 04:32 05:48 10:43 WBC RBC Hgb Hct MCV MCH MCHC RDW Plt Count Lymph % (Auto) [place] % (Auto) [place] # Seg Neutrophils % Seg Neuts % (Manual) Lymphocytes % (Manual) Monocytes % (Manual) Nucleated RBC % Seg Neutrophils # Seg Neutrophils # Man Lymphocytes # (Manual) Monocytes # (Manual) Eosinophils # (Manual) Basophils # (Manual) PT INR POC ABG pH ABG pH POC ABG pCO2 POC ABG pO2 ABG pO2 ABG O2 Saturation ABG Base Excess ABG Hemoglobin Oxyhemoglobin Sodium 136 L Potassium 5.2 H D Chloride 94.2 L Carbon Dioxide BUN 71 H Creatinine 2.3 H Glucose 235 H POC Glucose 329 H Calcium 8.3 L Phosphorus Magnesium Iron TIBC Ferritin Total Bilirubin AST ALT Alkaline Phosphatase Total Creatine Kinase Troponin T C-Reactive Protein Total Protein Albumin Triglycerides HDL Cholesterol Miscellaneous Test Flexitest 1 H Crossmatch 09/04/17 09/04/17 09/05/17 12:38 17:30 00:15 WBC RBC Hgb Hct MCV MCH MCHC RDW Plt Count Lymph % (Auto) [place] % (Auto) [place] # Seg Neutrophils % Seg Neuts % (Manual) Lymphocytes % (Manual) Monocytes % (Manual) Nucleated RBC % Seg Neutrophils # Seg Neutrophils # Man Lymphocytes # (Manual) Monocytes # (Manual) Eosinophils # (Manual) Basophils # (Manual) PT INR POC ABG pH ABG pH POC ABG pCO2 POC ABG pO2 ABG pO2 ABG O2 Saturation ABG Base Excess ABG Hemoglobin Oxyhemoglobin Sodium Potassium Chloride Carbon Dioxide BUN Creatinine Glucose POC Glucose 444 H 331 H 362 H Calcium Phosphorus Magnesium Iron TIBC Ferritin Total Bilirubin AST ALT Alkaline Phosphatase Total Creatine Kinase Troponin T C-Reactive Protein Total Protein Albumin Triglycerides HDL Cholesterol Miscellaneous Test Crossmatch 09/05/17 09/05/17 09/05/17 03:55 03:55 12:12 WBC 35.3 H RBC 2.87 L Hgb 8.1 L Hct 24.6 L MCV MCH MCHC RDW 23.3 H Plt Count Lymph % (Auto) [place] % (Auto) [place] # Seg Neutrophils % Seg Neuts % (Manual) 89.5 H Lymphocytes % (Manual) 3.0 L Monocytes % (Manual) Nucleated RBC % 2.5 H Seg Neutrophils # Seg Neutrophils # Man 31.6 H Lymphocytes # (Manual) 1.1 L Monocytes # (Manual) Eosinophils # (Manual) Basophils # (Manual) PT INR POC ABG pH ABG pH POC ABG pCO2 POC ABG pO2 ABG pO2 ABG O2 Saturation ABG Base Excess ABG Hemoglobin Oxyhemoglobin Sodium 136 L Potassium Chloride 94.7 L Carbon Dioxide BUN 55 H Creatinine 1.8 H Glucose 193 H POC Glucose 344 H Calcium 8.1 L Phosphorus Magnesium Iron TIBC Ferritin Total Bilirubin AST ALT Alkaline Phosphatase Total Creatine Kinase Troponin T C-Reactive Protein Total Protein Albumin Triglycerides HDL Cholesterol Miscellaneous Test Crossmatch 09/05/17 09/05/17 09/05/17 14:32 15:32 16:41 WBC RBC Hgb Hct MCV MCH MCHC RDW Plt Count Lymph % (Auto) [place] % (Auto) [place] # Seg Neutrophils % Seg Neuts % (Manual) Lymphocytes % (Manual) Monocytes % (Manual) Nucleated RBC % Seg Neutrophils # Seg Neutrophils # Man Lymphocytes # (Manual) Monocytes # (Manual) Eosinophils # (Manual) Basophils # (Manual) PT INR POC ABG pH ABG pH POC ABG pCO2 POC ABG pO2 ABG pO2 ABG O2 Saturation ABG Base Excess ABG Hemoglobin Oxyhemoglobin Sodium Potassium Chloride Carbon Dioxide BUN Creatinine Glucose POC Glucose 265 H 145 H 188 H Calcium Phosphorus Magnesium Iron TIBC Ferritin Total Bilirubin AST ALT Alkaline Phosphatase Total Creatine Kinase Troponin T C-Reactive Protein Total Protein Albumin Triglycerides HDL Cholesterol Miscellaneous Test Crossmatch 09/05/17 09/05/17 09/05/17 17:28 18:38 20:10 WBC RBC Hgb Hct MCV MCH MCHC RDW Plt Count Lymph % (Auto) [place] % (Auto) [place] # Seg Neutrophils % Seg Neuts % (Manual) Lymphocytes % (Manual) Monocytes % (Manual) Nucleated RBC % Seg Neutrophils # Seg Neutrophils # Man Lymphocytes # (Manual) Monocytes # (Manual) Eosinophils # (Manual) Basophils # (Manual) PT INR POC ABG pH ABG pH POC ABG pCO2 POC ABG pO2 ABG pO2 ABG O2 Saturation ABG Base Excess ABG Hemoglobin Oxyhemoglobin Sodium Potassium Chloride Carbon Dioxide BUN Creatinine Glucose POC Glucose 246 H 271 H 165 H Calcium Phosphorus Magnesium Iron TIBC Ferritin Total Bilirubin AST ALT Alkaline Phosphatase Total Creatine Kinase Troponin T C-Reactive Protein Total Protein Albumin Triglycerides HDL Cholesterol Miscellaneous Test Crossmatch 09/05/17 09/05/17 09/06/17 21:06 23:07 00:10 WBC RBC Hgb Hct MCV MCH MCHC RDW Plt Count Lymph % (Auto) [place] % (Auto) [place] # Seg Neutrophils % Seg Neuts % (Manual) Lymphocytes % (Manual) Monocytes % (Manual) Nucleated RBC % Seg Neutrophils # Seg Neutrophils # Man Lymphocytes # (Manual) Monocytes # (Manual) Eosinophils # (Manual) Basophils # (Manual) PT INR POC ABG pH ABG pH POC ABG pCO2 POC ABG pO2 ABG pO2 ABG O2 Saturation ABG Base Excess ABG Hemoglobin Oxyhemoglobin Sodium Potassium Chloride Carbon Dioxide BUN Creatinine Glucose POC Glucose 134 H 135 H 147 H Calcium Phosphorus Magnesium Iron TIBC Ferritin Total Bilirubin AST ALT Alkaline Phosphatase Total Creatine Kinase Troponin T C-Reactive Protein Total Protein Albumin Triglycerides HDL Cholesterol Miscellaneous Test Crossmatch 09/06/17 09/06/17 09/06/17 01:08 02:01 03:08 WBC RBC Hgb Hct MCV MCH MCHC RDW Plt Count Lymph % (Auto) [place] % (Auto) [place] # Seg Neutrophils % Seg Neuts % (Manual) Lymphocytes % (Manual) Monocytes % (Manual) Nucleated RBC % Seg Neutrophils # Seg Neutrophils # Man Lymphocytes # (Manual) Monocytes # (Manual) Eosinophils # (Manual) Basophils # (Manual) PT INR POC ABG pH ABG pH POC ABG pCO2 POC ABG pO2 ABG pO2 ABG O2 Saturation ABG Base Excess ABG Hemoglobin Oxyhemoglobin Sodium Potassium Chloride Carbon Dioxide BUN Creatinine Glucose POC Glucose 133 H 146 H 135 H Calcium Phosphorus Magnesium Iron TIBC Ferritin Total Bilirubin AST ALT Alkaline Phosphatase Total Creatine Kinase Troponin T C-Reactive Protein Total Protein Albumin Triglycerides HDL Cholesterol Miscellaneous Test Crossmatch 09/06/17 09/06/17 09/06/17 05:30 05:30 05:30 WBC 38.6 H RBC 2.95 L Hgb 8.3 L Hct 25.3 L MCV MCH MCHC RDW 22.2 H Plt Count Lymph % (Auto) [place] % (Auto) [place] # Seg Neutrophils % Seg Neuts % (Manual) Lymphocytes % (Manual) 2.0 L Monocytes % (Manual) Nucleated RBC % 5.0 H Seg Neutrophils # Seg Neutrophils # Man 25.9 H Lymphocytes # (Manual) 0.8 L Monocytes # (Manual) 1.9 H Eosinophils # (Manual) Basophils # (Manual) PT INR POC ABG pH ABG pH POC ABG pCO2 POC ABG pO2 ABG pO2 ABG O2 Saturation ABG Base Excess ABG Hemoglobin Oxyhemoglobin Sodium 135 L Potassium Chloride 93.5 L Carbon Dioxide BUN 82 H Creatinine 2.3 H Glucose 148 H POC Glucose Calcium Phosphorus Magnesium Iron TIBC Ferritin Total Bilirubin AST ALT Alkaline Phosphatase Total Creatine Kinase Troponin T C-Reactive Protein 2.80 H Total Protein Albumin Triglycerides HDL Cholesterol Miscellaneous Test Crossmatch 09/06/17 09/06/17 09/06/17 05:48 08:04 09:06 WBC RBC Hgb Hct MCV MCH MCHC RDW Plt Count Lymph % (Auto) [place] % (Auto) [place] # Seg Neutrophils % Seg Neuts % (Manual) Lymphocytes % (Manual) Monocytes % (Manual) Nucleated RBC % Seg Neutrophils # Seg Neutrophils # Man Lymphocytes # (Manual) Monocytes # (Manual) Eosinophils # (Manual) Basophils # (Manual) PT INR POC ABG pH ABG pH POC ABG pCO2 POC ABG pO2 ABG pO2 ABG O2 Saturation ABG Base Excess ABG Hemoglobin Oxyhemoglobin Sodium Potassium Chloride Carbon Dioxide BUN Creatinine Glucose POC Glucose 152 H 164 H 172 H Calcium Phosphorus Magnesium Iron TIBC Ferritin Total Bilirubin AST ALT Alkaline Phosphatase Total Creatine Kinase Troponin T C-Reactive Protein Total Protein Albumin Triglycerides HDL Cholesterol Miscellaneous Test Crossmatch 09/06/17 09/06/17 09/06/17 09:57 10:19 10:57 WBC RBC Hgb Hct MCV MCH MCHC RDW Plt Count Lymph % (Auto) [place] % (Auto) [place] # Seg Neutrophils % Seg Neuts % (Manual) Lymphocytes % (Manual) Monocytes % (Manual) Nucleated RBC % Seg Neutrophils # Seg Neutrophils # Man Lymphocytes # (Manual) Monocytes # (Manual) Eosinophils # (Manual) Basophils # (Manual) PT INR POC ABG pH ABG pH POC ABG pCO2 POC ABG pO2 ABG pO2 ABG O2 Saturation ABG Base Excess ABG Hemoglobin Oxyhemoglobin Sodium Potassium Chloride Carbon Dioxide BUN Creatinine Glucose POC Glucose 186 H 162 H Calcium Phosphorus Magnesium Iron TIBC Ferritin Total Bilirubin AST ALT Alkaline Phosphatase Total Creatine Kinase Troponin T C-Reactive Protein Total Protein Albumin Triglycerides HDL Cholesterol Miscellaneous Test Flexitest 1 H Crossmatch 09/06/17 09/06/17 09/06/17 13:12 13:40 17:36 WBC RBC Hgb 8.9 L Hct 28.5 L MCV MCH MCHC RDW Plt Count Lymph % (Auto) [place] % (Auto) [place] # Seg Neutrophils % Seg Neuts % (Manual) Lymphocytes % (Manual) Monocytes % (Manual) Nucleated RBC % Seg Neutrophils # Seg Neutrophils # Man Lymphocytes # (Manual) Monocytes # (Manual) Eosinophils # (Manual) Basophils # (Manual) PT INR POC ABG pH ABG pH POC ABG pCO2 POC ABG pO2 ABG pO2 ABG O2 Saturation ABG Base Excess ABG Hemoglobin Oxyhemoglobin Sodium Potassium Chloride Carbon Dioxide BUN Creatinine Glucose POC Glucose 166 H 161 H Calcium Phosphorus Magnesium Iron TIBC Ferritin Total Bilirubin AST ALT Alkaline Phosphatase Total Creatine Kinase Troponin T C-Reactive Protein Total Protein Albumin Triglycerides HDL Cholesterol Miscellaneous Test Crossmatch 09/07/17 09/07/17 09/07/17 00:13 03:50 03:50 WBC 47.0 H* RBC 2.81 L Hgb 8.1 L Hct 24.1 L MCV MCH MCHC RDW 22.5 H Plt Count Lymph % (Auto) [place] % (Auto) [place] # Seg Neutrophils % Seg Neuts % (Manual) Lymphocytes % (Manual) 9.0 L Monocytes % (Manual) Nucleated RBC % 6.0 H Seg Neutrophils # Seg Neutrophils # Man 27.3 H Lymphocytes # (Manual) Monocytes # (Manual) 0.9 H Eosinophils # (Manual) 1.9 H Basophils # (Manual) PT INR POC ABG pH ABG pH POC ABG pCO2 POC ABG pO2 ABG pO2 ABG O2 Saturation ABG Base Excess ABG Hemoglobin Oxyhemoglobin Sodium 136 L Potassium Chloride 96.3 L Carbon Dioxide BUN 61 H Creatinine 1.7 H Glucose 132 H POC Glucose 183 H Calcium 7.8 L Phosphorus Magnesium Iron TIBC Ferritin Total Bilirubin AST ALT Alkaline Phosphatase Total Creatine Kinase Troponin T C-Reactive Protein Total Protein Albumin Triglycerides HDL Cholesterol Miscellaneous Test Crossmatch 09/07/17 09/07/17 09/07/17 05:12 05:23 11:48 WBC RBC Hgb Hct MCV MCH MCHC RDW Plt Count Lymph % (Auto) [place] % (Auto) [place] # Seg Neutrophils % Seg Neuts % (Manual) Lymphocytes % (Manual) Monocytes % (Manual) Nucleated RBC % Seg Neutrophils # Seg Neutrophils # Man Lymphocytes # (Manual) Monocytes # (Manual) Eosinophils # (Manual) Basophils # (Manual) PT INR POC ABG pH ABG pH POC ABG pCO2 POC ABG pO2 ABG pO2 ABG O2 Saturation ABG Base Excess ABG Hemoglobin 7.7 L Oxyhemoglobin 94.8 L Sodium Potassium Chloride Carbon Dioxide BUN Creatinine Glucose POC Glucose 162 H 200 H Calcium Phosphorus Magnesium Iron TIBC Ferritin Total Bilirubin AST ALT Alkaline Phosphatase Total Creatine Kinase Troponin T C-Reactive Protein Total Protein Albumin Triglycerides HDL Cholesterol Miscellaneous Test Crossmatch 09/07/17 09/07/17 09/08/17 17:07 18:21 00:06 WBC RBC Hgb Hct MCV MCH MCHC RDW Plt Count Lymph % (Auto) [place] % (Auto) [place] # Seg Neutrophils % Seg Neuts % (Manual) Lymphocytes % (Manual) Monocytes % (Manual) Nucleated RBC % Seg Neutrophils # Seg Neutrophils # Man Lymphocytes # (Manual) Monocytes # (Manual) Eosinophils # (Manual) Basophils # (Manual) PT INR POC ABG pH ABG pH POC ABG pCO2 POC ABG pO2 ABG pO2 ABG O2 Saturation ABG Base Excess ABG Hemoglobin Oxyhemoglobin Sodium Potassium Chloride Carbon Dioxide BUN Creatinine Glucose POC Glucose 181 H 168 H Calcium Phosphorus Magnesium Iron TIBC Ferritin Total Bilirubin AST ALT Alkaline Phosphatase Total Creatine Kinase Troponin T C-Reactive Protein Total Protein Albumin Triglycerides HDL Cholesterol Miscellaneous Test Crossmatch See Detail 09/08/17 09/08/17 09/08/17 04:05 04:05 04:41 WBC 49.7 H* RBC 2.58 L Hgb 7.3 L Hct 22.7 L MCV MCH MCHC RDW 22.5 H Plt Count Lymph % (Auto) [place] % (Auto) [place] # Seg Neutrophils % Seg Neuts % (Manual) 90.5 H Lymphocytes % (Manual) 1.5 L Monocytes % (Manual) Nucleated RBC % Seg Neutrophils # Seg Neutrophils # Man 45.0 H Lymphocytes # (Manual) 0.7 L Monocytes # (Manual) 1.7 H Eosinophils # (Manual) Basophils # (Manual) PT INR POC ABG pH ABG pH POC ABG pCO2 POC ABG pO2 ABG pO2 ABG O2 Saturation ABG Base Excess ABG Hemoglobin Oxyhemoglobin Sodium 132 L Potassium Chloride 92.1 L Carbon Dioxide BUN 82 H Creatinine 2.2 H Glucose 162 H POC Glucose 235 H Calcium 8.3 L Phosphorus 5.20 H D Magnesium Iron TIBC Ferritin Total Bilirubin AST ALT Alkaline Phosphatase 199 H Total Creatine Kinase Troponin T C-Reactive Protein Total Protein 4.5 L Albumin 1.7 L Triglycerides HDL Cholesterol Miscellaneous Test Crossmatch 09/08/17 09/08/17 09/08/17 09:21 11:52 17:38 WBC RBC Hgb Hct MCV MCH MCHC RDW Plt Count Lymph % (Auto) [place] % (Auto) [place] # Seg Neutrophils % Seg Neuts % (Manual) Lymphocytes % (Manual) Monocytes % (Manual) Nucleated RBC % Seg Neutrophils # Seg Neutrophils # Man Lymphocytes # (Manual) Monocytes # (Manual) Eosinophils # (Manual) Basophils # (Manual) PT INR POC ABG pH ABG pH POC ABG pCO2 POC ABG pO2 ABG pO2 218.5 H ABG O2 Saturation 99.3 H ABG Base Excess -3.5 L ABG Hemoglobin 7.7 L Oxyhemoglobin Sodium Potassium Chloride Carbon Dioxide BUN Creatinine Glucose POC Glucose 220 H 194 H Calcium Phosphorus Magnesium Iron TIBC Ferritin Total Bilirubin AST ALT Alkaline Phosphatase Total Creatine Kinase Troponin T C-Reactive Protein Total Protein Albumin Triglycerides HDL Cholesterol Miscellaneous Test Crossmatch 09/09/17 09/09/17 09/09/17 00:24 03:37 03:37 WBC 33.5 H RBC 2.36 L Hgb 6.7 L Hct 20.9 L MCV MCH MCHC RDW 22.7 H Plt Count Lymph % (Auto) [place] % (Auto) [place] # Seg Neutrophils % Seg Neuts % (Manual) Lymphocytes % (Manual) Monocytes % (Manual) Nucleated RBC % Seg Neutrophils # Seg Neutrophils # Man Lymphocytes # (Manual) Monocytes # (Manual) Eosinophils # (Manual) Basophils # (Manual) PT INR POC ABG pH ABG pH POC ABG pCO2 POC ABG pO2 ABG pO2 ABG O2 Saturation ABG Base Excess ABG Hemoglobin Oxyhemoglobin Sodium 132 L Potassium Chloride 91.6 L Carbon Dioxide 21 L BUN 101 H Creatinine 2.6 H Glucose 156 H POC Glucose 182 H Calcium 8.3 L Phosphorus 5.90 H Magnesium 2.60 H Iron TIBC Ferritin Total Bilirubin AST ALT Alkaline Phosphatase Total Creatine Kinase Troponin T C-Reactive Protein Total Protein Albumin Triglycerides HDL Cholesterol Miscellaneous Test Crossmatch 09/09/17 09/09/17 09/09/17 05:29 12:03 18:05 WBC RBC Hgb Hct MCV MCH MCHC RDW Plt Count Lymph % (Auto) [place] % (Auto) [place] # Seg Neutrophils % Seg Neuts % (Manual) Lymphocytes % (Manual) Monocytes % (Manual) Nucleated RBC % Seg Neutrophils # Seg Neutrophils # Man Lymphocytes # (Manual) Monocytes # (Manual) Eosinophils # (Manual) Basophils # (Manual) PT INR POC ABG pH ABG pH POC ABG pCO2 POC ABG pO2 ABG pO2 ABG O2 Saturation ABG Base Excess ABG Hemoglobin Oxyhemoglobin Sodium Potassium Chloride Carbon Dioxide BUN Creatinine Glucose POC Glucose 168 H 143 H 173 H Calcium Phosphorus Magnesium Iron TIBC Ferritin Total Bilirubin AST ALT Alkaline Phosphatase Total Creatine Kinase Troponin T C-Reactive Protein Total Protein Albumin Triglycerides HDL Cholesterol Miscellaneous Test Crossmatch 09/09/17 09/09/17 09/10/17 23:30 Unknown 05:04 WBC RBC Hgb Hct MCV MCH MCHC RDW Plt Count Lymph % (Auto) [place] % (Auto) [place] # Seg Neutrophils % Seg Neuts % (Manual) Lymphocytes % (Manual) Monocytes % (Manual) Nucleated RBC % Seg Neutrophils # Seg Neutrophils # Man Lymphocytes # (Manual) Monocytes # (Manual) Eosinophils # (Manual) Basophils # (Manual) PT INR POC ABG pH ABG pH 7.323 L POC ABG pCO2 POC ABG pO2 ABG pO2 94.1 H ABG O2 Saturation ABG Base Excess -4.8 L ABG Hemoglobin 8.0 L Oxyhemoglobin 94.9 L Sodium Potassium Chloride Carbon Dioxide BUN Creatinine Glucose POC Glucose 212 H 155 H Calcium Phosphorus Magnesium Iron TIBC Ferritin Total Bilirubin AST ALT Alkaline Phosphatase Total Creatine Kinase Troponin T C-Reactive Protein Total Protein Albumin Triglycerides HDL Cholesterol Miscellaneous Test Crossmatch 09/10/17 09/10/17 09/10/17 07:00 09:55 12:22 WBC 24.7 H RBC 2.62 L Hgb 7.5 L Hct 22.5 L MCV MCH MCHC RDW 20.8 H Plt Count Lymph % (Auto) [place] % (Auto) [place] # Seg Neutrophils % Seg Neuts % (Manual) Lymphocytes % (Manual) Monocytes % (Manual) Nucleated RBC % Seg Neutrophils # Seg Neutrophils # Man Lymphocytes # (Manual) Monocytes # (Manual) Eosinophils # (Manual) Basophils # (Manual) PT INR POC ABG pH ABG pH POC ABG pCO2 POC ABG pO2 ABG pO2 ABG O2 Saturation ABG Base Excess ABG Hemoglobin Oxyhemoglobin Sodium Potassium Chloride 97.9 L Carbon Dioxide BUN 78 H Creatinine 2.0 H Glucose 126 H POC Glucose 183 H Calcium 8.2 L Phosphorus Magnesium Iron TIBC Ferritin Total Bilirubin AST ALT Alkaline Phosphatase Total Creatine Kinase Troponin T C-Reactive Protein Total Protein Albumin Triglycerides HDL Cholesterol Miscellaneous Test Crossmatch 09/11/17 09/11/17 09/11/17 00:08 03:50 05:28 WBC 21.6 H RBC 2.52 L Hgb 7.4 L Hct 22.2 L MCV MCH MCHC RDW 21.5 H Plt Count Lymph % (Auto) [place] % (Auto) [place] # Seg Neutrophils % Seg Neuts % (Manual) 92.0 H Lymphocytes % (Manual) 3.0 L Monocytes % (Manual) Nucleated RBC % Seg Neutrophils # Seg Neutrophils # Man 19.9 H Lymphocytes # (Manual) 0.6 L Monocytes # (Manual) Eosinophils # (Manual) Basophils # (Manual) PT INR POC ABG pH ABG pH POC ABG pCO2 POC ABG pO2 ABG pO2 ABG O2 Saturation ABG Base Excess ABG Hemoglobin Oxyhemoglobin Sodium Potassium Chloride Carbon Dioxide BUN Creatinine Glucose POC Glucose 213 H 181 H Calcium Phosphorus Magnesium Iron TIBC Ferritin Total Bilirubin AST ALT Alkaline Phosphatase Total Creatine Kinase Troponin T C-Reactive Protein Total Protein Albumin Triglycerides HDL Cholesterol Miscellaneous Test Crossmatch 09/11/17 09/11/17 09/11/17 11:55 17:56 23:12 WBC RBC Hgb Hct MCV MCH MCHC RDW Plt Count Lymph % (Auto) [place] % (Auto) [place] # Seg Neutrophils % Seg Neuts % (Manual) Lymphocytes % (Manual) Monocytes % (Manual) Nucleated RBC % Seg Neutrophils # Seg Neutrophils # Man Lymphocytes # (Manual) Monocytes # (Manual) Eosinophils # (Manual) Basophils # (Manual) PT INR POC ABG pH ABG pH POC ABG pCO2 POC ABG pO2 ABG pO2 ABG O2 Saturation ABG Base Excess ABG Hemoglobin Oxyhemoglobin Sodium Potassium Chloride Carbon Dioxide 21 L BUN 80 H Creatinine 2.1 H Glucose 170 H POC Glucose 277 H 206 H Calcium 8.0 L Phosphorus Magnesium Iron TIBC Ferritin Total Bilirubin AST ALT Alkaline Phosphatase Total Creatine Kinase Troponin T C-Reactive Protein Total Protein Albumin Triglycerides HDL Cholesterol Miscellaneous Test Crossmatch 09/11/17 09/12/17 09/12/17 23:36 05:25 05:25 WBC 17.4 H RBC 2.29 L Hgb 6.7 L Hct 20.4 L MCV MCH MCHC RDW 21.2 H Plt Count Lymph % (Auto) [place] % (Auto) [place] # Seg Neutrophils % Seg Neuts % (Manual) 79.0 H Lymphocytes % (Manual) 5.0 L Monocytes % (Manual) Nucleated RBC % 1.0 H Seg Neutrophils # Seg Neutrophils # Man 13.7 H Lymphocytes # (Manual) 0.9 L Monocytes # (Manual) 1.2 H Eosinophils # (Manual) Basophils # (Manual) PT INR POC ABG pH ABG pH POC ABG pCO2 POC ABG pO2 ABG pO2 ABG O2 Saturation ABG Base Excess ABG Hemoglobin Oxyhemoglobin Sodium Potassium Chloride Carbon Dioxide BUN Creatinine Glucose POC Glucose 190 H Calcium Phosphorus Magnesium Iron 22 L TIBC 81 L Ferritin Total Bilirubin AST ALT Alkaline Phosphatase Total Creatine Kinase Troponin T C-Reactive Protein Total Protein Albumin Triglycerides HDL Cholesterol Miscellaneous Test Crossmatch 09/12/17 09/12/17 09/12/17 05:25 05:36 09:14 WBC RBC Hgb Hct MCV MCH MCHC RDW Plt Count Lymph % (Auto) [place] % (Auto) [place] # Seg Neutrophils % Seg Neuts % (Manual) Lymphocytes % (Manual) Monocytes % (Manual) Nucleated RBC % Seg Neutrophils # Seg Neutrophils # Man Lymphocytes # (Manual) Monocytes # (Manual) Eosinophils # (Manual) Basophils # (Manual) PT INR POC ABG pH ABG pH POC ABG pCO2 POC ABG pO2 ABG pO2 ABG O2 Saturation ABG Base Excess ABG Hemoglobin Oxyhemoglobin Sodium Potassium Chloride Carbon Dioxide BUN Creatinine Glucose POC Glucose 141 H Calcium Phosphorus Magnesium Iron TIBC Ferritin > 2000.0 H Total Bilirubin AST ALT Alkaline Phosphatase Total Creatine Kinase Troponin T C-Reactive Protein Total Protein Albumin Triglycerides HDL Cholesterol Miscellaneous Test Crossmatch See Detail 09/12/17 09/12/17 09/12/17 11:18 15:22 17:18 WBC RBC Hgb 8.5 L Hct 25.4 L MCV MCH MCHC RDW Plt Count Lymph % (Auto) [place] % (Auto) [place] # Seg Neutrophils % Seg Neuts % (Manual) Lymphocytes % (Manual) Monocytes % (Manual) Nucleated RBC % Seg Neutrophils # Seg Neutrophils # Man Lymphocytes # (Manual) Monocytes # (Manual) Eosinophils # (Manual) Basophils # (Manual) PT INR POC ABG pH ABG pH POC ABG pCO2 POC ABG pO2 ABG pO2 ABG O2 Saturation ABG Base Excess ABG Hemoglobin Oxyhemoglobin Sodium Potassium Chloride Carbon Dioxide BUN Creatinine Glucose POC Glucose 262 H 193 H Calcium Phosphorus Magnesium Iron TIBC Ferritin Total Bilirubin AST ALT Alkaline Phosphatase Total Creatine Kinase Troponin T C-Reactive Protein Total Protein Albumin Triglycerides HDL Cholesterol Miscellaneous Test Crossmatch 09/13/17 09/13/17 09/13/17 00:05 06:25 11:36 WBC RBC Hgb Hct MCV MCH MCHC RDW Plt Count Lymph % (Auto) [place] % (Auto) [place] # Seg Neutrophils % Seg Neuts % (Manual) Lymphocytes % (Manual) Monocytes % (Manual) Nucleated RBC % Seg Neutrophils # Seg Neutrophils # Man Lymphocytes # (Manual) Monocytes # (Manual) Eosinophils # (Manual) Basophils # (Manual) PT INR POC ABG pH 7.347 L ABG pH POC ABG pCO2 34.3 L POC ABG pO2 134 H ABG pO2 ABG O2 Saturation ABG Base Excess ABG Hemoglobin Oxyhemoglobin Sodium Potassium Chloride Carbon Dioxide BUN Creatinine Glucose POC Glucose 235 H 286 H Calcium Phosphorus Magnesium Iron TIBC Ferritin Total Bilirubin AST ALT Alkaline Phosphatase Total Creatine Kinase Troponin T C-Reactive Protein Total Protein Albumin Triglycerides HDL Cholesterol Miscellaneous Test Crossmatch 09/13/17 09/13/17 09/13/17 11:56 17:25 23:18 WBC RBC Hgb Hct MCV MCH MCHC RDW Plt Count Lymph % (Auto) [place] % (Auto) [place] # Seg Neutrophils % Seg Neuts % (Manual) Lymphocytes % (Manual) Monocytes % (Manual) Nucleated RBC % Seg Neutrophils # Seg Neutrophils # Man Lymphocytes # (Manual) Monocytes # (Manual) Eosinophils # (Manual) Basophils # (Manual) PT INR POC ABG pH ABG pH POC ABG pCO2 POC ABG pO2 ABG pO2 ABG O2 Saturation ABG Base Excess ABG Hemoglobin Oxyhemoglobin Sodium Potassium Chloride Carbon Dioxide BUN Creatinine Glucose POC Glucose 318 H 278 H 230 H Calcium Phosphorus Magnesium Iron TIBC Ferritin Total Bilirubin AST ALT Alkaline Phosphatase Total Creatine Kinase Troponin T C-Reactive Protein Total Protein Albumin Triglycerides HDL Cholesterol Miscellaneous Test Crossmatch 09/13/17 09/13/17 09/13/17 Unknown Unknown Unknown WBC 15.6 H RBC 2.72 L Hgb 8.1 L Hct 23.9 L MCV MCH MCHC RDW 19.5 H Plt Count 137 L Lymph % (Auto) [place] % (Auto) [place] # Seg Neutrophils % Seg Neuts % (Manual) 73.0 H Lymphocytes % (Manual) 3.0 L Monocytes % (Manual) 19.0 H Nucleated RBC % 2.0 H Seg Neutrophils # Seg Neutrophils # Man 11.4 H Lymphocytes # (Manual) 0.5 L Monocytes # (Manual) 3.0 H Eosinophils # (Manual) Basophils # (Manual) PT INR POC ABG pH ABG pH POC ABG pCO2 POC ABG pO2 ABG pO2 ABG O2 Saturation ABG Base Excess ABG Hemoglobin Oxyhemoglobin Sodium Potassium Chloride Carbon Dioxide 19 L BUN 103 H Creatinine 2.6 H Glucose 173 H POC Glucose Calcium Phosphorus Magnesium Iron TIBC Ferritin Total Bilirubin AST ALT Alkaline Phosphatase Total Creatine Kinase Troponin T C-Reactive Protein Total Protein Albumin < 0.2 L Triglycerides HDL Cholesterol Miscellaneous Test Crossmatch 09/14/17 09/14/17 09/14/17 03:15 03:15 05:16 WBC 12.5 H RBC 2.55 L Hgb 7.6 L Hct 22.5 L MCV MCH MCHC RDW 19.8 H Plt Count 139 L Lymph % (Auto) [place] % (Auto) [place] # Seg Neutrophils % Seg Neuts % (Manual) Lymphocytes % (Manual) Monocytes % (Manual) Nucleated RBC % Seg Neutrophils # Seg Neutrophils # Man Lymphocytes # (Manual) Monocytes # (Manual) Eosinophils # (Manual) Basophils # (Manual) PT INR POC ABG pH ABG pH POC ABG pCO2 POC ABG pO2 ABG pO2 ABG O2 Saturation ABG Base Excess ABG Hemoglobin Oxyhemoglobin Sodium Potassium Chloride Carbon Dioxide BUN 75 H Creatinine 2.1 H Glucose 217 H POC Glucose 283 H Calcium Phosphorus 2.20 L D Magnesium Iron TIBC Ferritin Total Bilirubin AST ALT Alkaline Phosphatase Total Creatine Kinase Troponin T C-Reactive Protein Total Protein Albumin Triglycerides HDL Cholesterol Miscellaneous Test Crossmatch 09/14/17 09/14/17 09/15/17 12:11 17:47 00:03 WBC RBC Hgb Hct MCV MCH MCHC RDW Plt Count Lymph % (Auto) [place] % (Auto) [place] # Seg Neutrophils % Seg Neuts % (Manual) Lymphocytes % (Manual) Monocytes % (Manual) Nucleated RBC % Seg Neutrophils # Seg Neutrophils # Man Lymphocytes # (Manual) Monocytes # (Manual) Eosinophils # (Manual) Basophils # (Manual) PT INR POC ABG pH ABG pH POC ABG pCO2 POC ABG pO2 ABG pO2 ABG O2 Saturation ABG Base Excess ABG Hemoglobin Oxyhemoglobin Sodium Potassium Chloride Carbon Dioxide BUN Creatinine Glucose POC Glucose 251 H 289 H 229 H Calcium Phosphorus Magnesium Iron TIBC Ferritin Total Bilirubin AST ALT Alkaline Phosphatase Total Creatine Kinase Troponin T C-Reactive Protein Total Protein Albumin Triglycerides HDL Cholesterol Miscellaneous Test Crossmatch 09/15/17 09/15/17 09/15/17 05:00 05:00 05:30 WBC 11.7 H RBC 2.50 L Hgb 7.4 L Hct 22.7 L MCV MCH MCHC RDW 20.5 H Plt Count Lymph % (Auto) [place] % (Auto) [place] # Seg Neutrophils % Seg Neuts % (Manual) Lymphocytes % (Manual) 11.0 L Monocytes % (Manual) 11.0 H Nucleated RBC % Seg Neutrophils # Seg Neutrophils # Man Lymphocytes # (Manual) Monocytes # (Manual) 1.3 H Eosinophils # (Manual) Basophils # (Manual) PT INR POC ABG pH ABG pH POC ABG pCO2 POC ABG pO2 ABG pO2 ABG O2 Saturation ABG Base Excess ABG Hemoglobin Oxyhemoglobin Sodium Potassium Chloride 97.0 L Carbon Dioxide 21 L BUN 94 H Creatinine 2.4 H Glucose 194 H POC Glucose 225 H Calcium Phosphorus Magnesium Iron TIBC Ferritin Total Bilirubin AST ALT Alkaline Phosphatase Total Creatine Kinase Troponin T C-Reactive Protein Total Protein Albumin Triglycerides HDL Cholesterol Miscellaneous Test Crossmatch 09/15/17 09/15/17 09/15/17 07:48 11:38 12:45 WBC RBC 1.93 L Hgb 5.7 L* Hct 17.1 L* MCV MCH MCHC RDW 20.2 H Plt Count 125 L Lymph % (Auto) [place] % (Auto) [place] # Seg Neutrophils % Seg Neuts % (Manual) 79.0 H Lymphocytes % (Manual) 8.0 L Monocytes % (Manual) Nucleated RBC % Seg Neutrophils # Seg Neutrophils # Man Lymphocytes # (Manual) 0.8 L Monocytes # (Manual) Eosinophils # (Manual) Basophils # (Manual) PT INR POC ABG pH ABG pH POC ABG pCO2 POC ABG pO2 ABG pO2 ABG O2 Saturation ABG Base Excess ABG Hemoglobin Oxyhemoglobin Sodium Potassium Chloride Carbon Dioxide BUN Creatinine Glucose POC Glucose 245 H 253 H Calcium Phosphorus Magnesium Iron TIBC Ferritin Total Bilirubin AST ALT Alkaline Phosphatase Total Creatine Kinase Troponin T C-Reactive Protein Total Protein Albumin Triglycerides HDL Cholesterol Miscellaneous Test Crossmatch 09/15/17 09/15/17 09/15/17 12:45 12:45 22:25 WBC 19.6 H RBC 3.32 L Hgb 10.0 L D Hct 29.3 L D MCV MCH MCHC RDW 17.0 H Plt Count 123 L Lymph % (Auto) [place] % (Auto) [place] # Seg Neutrophils % Seg Neuts % (Manual) Lymphocytes % (Manual) 12.0 L Monocytes % (Manual) Nucleated RBC % 5.0 H Seg Neutrophils # Seg Neutrophils # Man 11.0 H Lymphocytes # (Manual) Monocytes # (Manual) 1.2 H Eosinophils # (Manual) Basophils # (Manual) PT 15.4 H INR 1.16 H POC ABG pH ABG pH POC ABG pCO2 POC ABG pO2 ABG pO2 ABG O2 Saturation ABG Base Excess ABG Hemoglobin Oxyhemoglobin Sodium Potassium Chloride Carbon Dioxide BUN Creatinine Glucose POC Glucose Calcium Phosphorus Magnesium Iron TIBC Ferritin Total Bilirubin AST ALT Alkaline Phosphatase Total Creatine Kinase Troponin T C-Reactive Protein Total Protein Albumin Triglycerides HDL Cholesterol Miscellaneous Test Crossmatch See Detail 09/15/17 09/15/17 09/16/17 22:25 23:38 01:26 WBC RBC Hgb Hct MCV MCH MCHC RDW Plt Count Lymph % (Auto) [place] % (Auto) [place] # Seg Neutrophils % Seg Neuts % (Manual) Lymphocytes % (Manual) Monocytes % (Manual) Nucleated RBC % Seg Neutrophils # Seg Neutrophils # Man Lymphocytes # (Manual) Monocytes # (Manual) Eosinophils # (Manual) Basophils # (Manual) PT INR POC ABG pH ABG pH POC ABG pCO2 POC ABG pO2 ABG pO2 ABG O2 Saturation ABG Base Excess ABG Hemoglobin Oxyhemoglobin Sodium Potassium Chloride Carbon Dioxide 17 L BUN 100 H Creatinine 2.6 H Glucose POC Glucose 58 L 132 H Calcium 8.3 L Phosphorus Magnesium 1.60 L Iron TIBC Ferritin Total Bilirubin 2.80 H AST 118 H ALT Alkaline Phosphatase 316 H Total Creatine Kinase Troponin T C-Reactive Protein Total Protein 4.0 L Albumin 1.8 L Triglycerides HDL Cholesterol Miscellaneous Test Crossmatch 09/16/17 09/16/17 09/16/17 05:30 05:30 05:54 WBC 24.6 H RBC 3.22 L Hgb 9.8 L Hct 28.6 L MCV MCH MCHC RDW 17.4 H Plt Count 127 L Lymph % (Auto) [place] % (Auto) [place] # Seg Neutrophils % Seg Neuts % (Manual) Lymphocytes % (Manual) Monocytes % (Manual) Nucleated RBC % Seg Neutrophils # Seg Neutrophils # Man Lymphocytes # (Manual) Monocytes # (Manual) Eosinophils # (Manual) Basophils # (Manual) PT INR POC ABG pH ABG pH POC ABG pCO2 POC ABG pO2 ABG pO2 ABG O2 Saturation ABG Base Excess ABG Hemoglobin Oxyhemoglobin Sodium Potassium Chloride Carbon Dioxide 18 L BUN 109 H Creatinine 2.5 H Glucose 140 H POC Glucose 154 H Calcium Phosphorus 4.80 H Magnesium Iron TIBC Ferritin Total Bilirubin 2.40 H AST 90 H ALT Alkaline Phosphatase 298 H Total Creatine Kinase 20 L Troponin T C-Reactive Protein Total Protein 4.1 L Albumin 1.8 L Triglycerides HDL Cholesterol Miscellaneous Test Crossmatch 09/16/17 09/16/17 09/16/17 11:49 17:04 23:18 WBC RBC Hgb Hct MCV MCH MCHC RDW Plt Count Lymph % (Auto) [place] % (Auto) [place] # Seg Neutrophils % Seg Neuts % (Manual) Lymphocytes % (Manual) Monocytes % (Manual) Nucleated RBC % Seg Neutrophils # Seg Neutrophils # Man Lymphocytes # (Manual) Monocytes # (Manual) Eosinophils # (Manual) Basophils # (Manual) PT INR POC ABG pH ABG pH POC ABG pCO2 POC ABG pO2 ABG pO2 ABG O2 Saturation ABG Base Excess ABG Hemoglobin Oxyhemoglobin Sodium Potassium Chloride Carbon Dioxide BUN Creatinine Glucose POC Glucose 167 H 156 H 162 H Calcium Phosphorus Magnesium Iron TIBC Ferritin Total Bilirubin AST ALT Alkaline Phosphatase Total Creatine Kinase Troponin T C-Reactive Protein Total Protein Albumin Triglycerides HDL Cholesterol Miscellaneous Test Crossmatch 09/17/17 09/17/17 09/17/17 05:27 06:10 06:10 WBC 34.6 H RBC 2.75 L Hgb 8.4 L Hct 24.8 L MCV MCH MCHC RDW 18.3 H Plt Count Lymph % (Auto) [place] % (Auto) [place] # Seg Neutrophils % Seg Neuts % (Manual) 77.0 H Lymphocytes % (Manual) 5.0 L Monocytes % (Manual) Nucleated RBC % 2.0 H Seg Neutrophils # Seg Neutrophils # Man 26.6 H Lymphocytes # (Manual) Monocytes # (Manual) 2.4 H Eosinophils # (Manual) Basophils # (Manual) PT INR POC ABG pH ABG pH POC ABG pCO2 POC ABG pO2 ABG pO2 ABG O2 Saturation ABG Base Excess ABG Hemoglobin Oxyhemoglobin Sodium Potassium Chloride Carbon Dioxide BUN 82 H Creatinine 2.1 H Glucose 252 H POC Glucose 243 H Calcium 8.3 L Phosphorus Magnesium Iron TIBC Ferritin Total Bilirubin AST ALT Alkaline Phosphatase Total Creatine Kinase Troponin T C-Reactive Protein Total Protein Albumin Triglycerides HDL Cholesterol Miscellaneous Test Crossmatch 09/17/17 09/17/17 09/18/17 11:42 17:12 00:08 WBC RBC Hgb Hct MCV MCH MCHC RDW Plt Count Lymph % (Auto) [place] % (Auto) [place] # Seg Neutrophils % Seg Neuts % (Manual) Lymphocytes % (Manual) Monocytes % (Manual) Nucleated RBC % Seg Neutrophils # Seg Neutrophils # Man Lymphocytes # (Manual) Monocytes # (Manual) Eosinophils # (Manual) Basophils # (Manual) PT INR POC ABG pH ABG pH POC ABG pCO2 POC ABG pO2 ABG pO2 ABG O2 Saturation ABG Base Excess ABG Hemoglobin Oxyhemoglobin Sodium Potassium Chloride Carbon Dioxide BUN Creatinine Glucose POC Glucose 232 H 309 H 275 H Calcium Phosphorus Magnesium Iron TIBC Ferritin Total Bilirubin AST ALT Alkaline Phosphatase Total Creatine Kinase Troponin T C-Reactive Protein Total Protein Albumin Triglycerides HDL Cholesterol Miscellaneous Test Crossmatch 09/18/17 09/18/17 09/18/17 05:10 05:10 05:23 WBC 24.4 H RBC 2.57 L Hgb 7.8 L Hct 23.2 L MCV MCH MCHC RDW 19.5 H Plt Count Lymph % (Auto) [place] % (Auto) [place] # Seg Neutrophils % Seg Neuts % (Manual) 78.0 H Lymphocytes % (Manual) 6.0 L Monocytes % (Manual) Nucleated RBC % 2.0 H Seg Neutrophils # Seg Neutrophils # Man 19.0 H Lymphocytes # (Manual) Monocytes # (Manual) Eosinophils # (Manual) Basophils # (Manual) PT INR POC ABG pH ABG pH POC ABG pCO2 POC ABG pO2 ABG pO2 ABG O2 Saturation ABG Base Excess ABG Hemoglobin Oxyhemoglobin Sodium Potassium Chloride Carbon Dioxide BUN 103 H Creatinine 2.8 H Glucose 173 H POC Glucose 224 H Calcium Phosphorus Magnesium Iron TIBC Ferritin Total Bilirubin AST ALT Alkaline Phosphatase Total Creatine Kinase Troponin T C-Reactive Protein Total Protein Albumin Triglycerides HDL Cholesterol Miscellaneous Test Crossmatch 09/18/17 09/18/17 09/18/17 13:59 18:35 23:19 WBC RBC Hgb Hct MCV MCH MCHC RDW Plt Count Lymph % (Auto) [place] % (Auto) [place] # Seg Neutrophils % Seg Neuts % (Manual) Lymphocytes % (Manual) Monocytes % (Manual) Nucleated RBC % Seg Neutrophils # Seg Neutrophils # Man Lymphocytes # (Manual) Monocytes # (Manual) Eosinophils # (Manual) Basophils # (Manual) PT INR POC ABG pH ABG pH POC ABG pCO2 POC ABG pO2 ABG pO2 ABG O2 Saturation ABG Base Excess ABG Hemoglobin Oxyhemoglobin Sodium Potassium Chloride Carbon Dioxide BUN Creatinine Glucose POC Glucose 268 H 220 H 188 H Calcium Phosphorus Magnesium Iron TIBC Ferritin Total Bilirubin AST ALT Alkaline Phosphatase Total Creatine Kinase Troponin T C-Reactive Protein Total Protein Albumin Triglycerides HDL Cholesterol Miscellaneous Test Crossmatch 09/19/17 09/19/17 09/19/17 05:45 06:00 11:41 WBC 17.6 H RBC 2.57 L Hgb 7.9 L Hct 23.2 L MCV MCH MCHC RDW 19.0 H Plt Count Lymph % (Auto) [place] % (Auto) [place] # Seg Neutrophils % Seg Neuts % (Manual) Lymphocytes % (Manual) 9.0 L Monocytes % (Manual) Nucleated RBC % Seg Neutrophils # Seg Neutrophils # Man 11.4 H Lymphocytes # (Manual) Monocytes # (Manual) 0.9 H Eosinophils # (Manual) Basophils # (Manual) PT INR POC ABG pH ABG pH POC ABG pCO2 POC ABG pO2 ABG pO2 ABG O2 Saturation ABG Base Excess ABG Hemoglobin Oxyhemoglobin Sodium Potassium Chloride Carbon Dioxide BUN Creatinine Glucose POC Glucose 178 H 126 H Calcium Phosphorus Magnesium Iron TIBC Ferritin Total Bilirubin AST ALT Alkaline Phosphatase Total Creatine Kinase Troponin T C-Reactive Protein Total Protein Albumin Triglycerides HDL Cholesterol Miscellaneous Test Crossmatch 09/19/17 09/19/17 09/20/17 17:08 23:46 04:46 WBC RBC Hgb Hct MCV MCH MCHC RDW Plt Count Lymph % (Auto) [place] % (Auto) [place] # Seg Neutrophils % Seg Neuts % (Manual) Lymphocytes % (Manual) Monocytes % (Manual) Nucleated RBC % Seg Neutrophils # Seg Neutrophils # Man Lymphocytes # (Manual) Monocytes # (Manual) Eosinophils # (Manual) Basophils # (Manual) PT INR POC ABG pH ABG pH POC ABG pCO2 POC ABG pO2 ABG pO2 ABG O2 Saturation ABG Base Excess ABG Hemoglobin Oxyhemoglobin Sodium Potassium 5.2 H D Chloride 97.4 L Carbon Dioxide 20 L BUN 98 H Creatinine 2.4 H Glucose 187 H POC Glucose 263 H 161 H Calcium Phosphorus Magnesium Iron TIBC Ferritin Total Bilirubin AST ALT Alkaline Phosphatase Total Creatine Kinase Troponin T C-Reactive Protein Total Protein Albumin Triglycerides HDL Cholesterol Miscellaneous Test Crossmatch 09/20/17 09/20/17 09/20/17 05:38 11:36 11:41 WBC 24.5 H RBC 2.84 L Hgb 8.2 L Hct 26.2 L MCV MCH MCHC RDW 20.0 H Plt Count 470 H Lymph % (Auto) [place] % (Auto) [place] # Seg Neutrophils % Seg Neuts % (Manual) Lymphocytes % (Manual) Monocytes % (Manual) Nucleated RBC % Seg Neutrophils # Seg Neutrophils # Man Lymphocytes # (Manual) Monocytes # (Manual) Eosinophils # (Manual) Basophils # (Manual) PT INR POC ABG pH ABG pH POC ABG pCO2 POC ABG pO2 ABG pO2 ABG O2 Saturation ABG Base Excess ABG Hemoglobin Oxyhemoglobin Sodium Potassium Chloride Carbon Dioxide BUN Creatinine Glucose POC Glucose 215 H 220 H Calcium Phosphorus Magnesium Iron TIBC Ferritin Total Bilirubin AST ALT Alkaline Phosphatase Total Creatine Kinase Troponin T C-Reactive Protein Total Protein Albumin Triglycerides HDL Cholesterol Miscellaneous Test Crossmatch 09/20/17 09/21/17 09/21/17 17:45 00:51 04:00 WBC RBC Hgb Hct MCV MCH MCHC RDW Plt Count Lymph % (Auto) [place] % (Auto) [place] # Seg Neutrophils % Seg Neuts % (Manual) Lymphocytes % (Manual) Monocytes % (Manual) Nucleated RBC % Seg Neutrophils # Seg Neutrophils # Man Lymphocytes # (Manual) Monocytes # (Manual) Eosinophils # (Manual) Basophils # (Manual) PT INR POC ABG pH ABG pH POC ABG pCO2 POC ABG pO2 ABG pO2 ABG O2 Saturation ABG Base Excess ABG Hemoglobin Oxyhemoglobin Sodium Potassium 3.2 L D Chloride 96.4 L Carbon Dioxide BUN 63 H Creatinine 1.8 H Glucose 204 H POC Glucose 122 H 137 H Calcium 8.3 L Phosphorus 2.10 L D Magnesium 1.50 L Iron TIBC Ferritin Total Bilirubin AST ALT Alkaline Phosphatase Total Creatine Kinase Troponin T C-Reactive Protein Total Protein Albumin Triglycerides HDL Cholesterol Miscellaneous Test Crossmatch 09/21/17 09/21/17 09/21/17 05:45 08:30 11:50 WBC 27.5 H RBC 2.52 L Hgb 7.7 L Hct 22.8 L MCV MCH MCHC RDW 19.2 H Plt Count 457 H Lymph % (Auto) [place] % (Auto) [place] # Seg Neutrophils % Seg Neuts % (Manual) Lymphocytes % (Manual) Monocytes % (Manual) Nucleated RBC % Seg Neutrophils # Seg Neutrophils # Man Lymphocytes # (Manual) Monocytes # (Manual) Eosinophils # (Manual) Basophils # (Manual) PT INR POC ABG pH ABG pH POC ABG pCO2 POC ABG pO2 ABG pO2 ABG O2 Saturation ABG Base Excess ABG Hemoglobin Oxyhemoglobin Sodium Potassium Chloride Carbon Dioxide BUN Creatinine Glucose POC Glucose 243 H Calcium Phosphorus Magnesium Iron TIBC Ferritin Total Bilirubin AST ALT Alkaline Phosphatase Total Creatine Kinase Troponin T C-Reactive Protein Total Protein Albumin Triglycerides HDL Cholesterol Miscellaneous Test Crossmatch See Detail 09/21/17 09/21/17 09/22/17 13:03 16:39 00:09 WBC RBC Hgb Hct MCV MCH MCHC RDW Plt Count Lymph % (Auto) [place] % (Auto) [place] # Seg Neutrophils % Seg Neuts % (Manual) Lymphocytes % (Manual) Monocytes % (Manual) Nucleated RBC % Seg Neutrophils # Seg Neutrophils # Man Lymphocytes # (Manual) Monocytes # (Manual) Eosinophils # (Manual) Basophils # (Manual) PT INR POC ABG pH ABG pH POC ABG pCO2 POC ABG pO2 ABG pO2 ABG O2 Saturation ABG Base Excess ABG Hemoglobin Oxyhemoglobin Sodium Potassium Chloride Carbon Dioxide BUN Creatinine Glucose POC Glucose 271 H 160 H 191 H Calcium Phosphorus Magnesium Iron TIBC Ferritin Total Bilirubin AST ALT Alkaline Phosphatase Total Creatine Kinase Troponin T C-Reactive Protein Total Protein Albumin Triglycerides HDL Cholesterol Miscellaneous Test Crossmatch 09/22/17 09/22/17 09/22/17 03:37 05:40 07:35 WBC 29.7 H RBC 2.71 L Hgb 8.1 L Hct 24.1 L MCV MCH MCHC RDW 19.6 H Plt Count 491 H Lymph % (Auto) [place] % (Auto) [place] # Seg Neutrophils % Seg Neuts % (Manual) 70.5 H Lymphocytes % (Manual) 12.5 L Monocytes % (Manual) 10.0 H Nucleated RBC % 2.0 H Seg Neutrophils # Seg Neutrophils # Man 20.9 H Lymphocytes # (Manual) Monocytes # (Manual) 3.0 H Eosinophils # (Manual) Basophils # (Manual) PT INR POC ABG pH ABG pH POC ABG pCO2 POC ABG pO2 ABG pO2 ABG O2 Saturation ABG Base Excess ABG Hemoglobin Oxyhemoglobin Sodium Potassium 3.0 L Chloride 95.9 L Carbon Dioxide BUN 74 H Creatinine 2.1 H Glucose 126 H POC Glucose 150 H Calcium Phosphorus 2.10 L Magnesium 1.40 L Iron TIBC Ferritin Total Bilirubin AST ALT Alkaline Phosphatase 311 H Total Creatine Kinase Troponin T C-Reactive Protein Total Protein 4.4 L Albumin 2.0 L Triglycerides HDL Cholesterol Miscellaneous Test Crossmatch 09/22/17 09/23/17 09/23/17 12:20 05:02 05:02 WBC 37.5 H RBC 2.54 L Hgb 7.3 L Hct 22.9 L MCV MCH MCHC RDW 19.4 H Plt Count 471 H Lymph % (Auto) [place] % (Auto) [place] # Seg Neutrophils % Seg Neuts % (Manual) Lymphocytes % (Manual) 8.0 L Monocytes % (Manual) Nucleated RBC % 1.0 H Seg Neutrophils # Seg Neutrophils # Man 15.0 H Lymphocytes # (Manual) Monocytes # (Manual) 1.9 H Eosinophils # (Manual) Basophils # (Manual) PT INR POC ABG pH ABG pH POC ABG pCO2 POC ABG pO2 ABG pO2 ABG O2 Saturation ABG Base Excess ABG Hemoglobin Oxyhemoglobin Sodium 136 L Potassium 3.0 L Chloride 93.8 L Carbon Dioxide BUN 99 H Creatinine 2.7 H Glucose POC Glucose 106 H Calcium 8.2 L Phosphorus 2.40 L Magnesium Iron TIBC Ferritin Total Bilirubin AST ALT Alkaline Phosphatase Total Creatine Kinase Troponin T C-Reactive Protein Total Protein Albumin Triglycerides HDL Cholesterol Miscellaneous Test Crossmatch 09/23/17 09/23/17 09/23/17 05:39 11:21 18:19 WBC RBC Hgb Hct MCV MCH MCHC RDW Plt Count Lymph % (Auto) [place] % (Auto) [place] # Seg Neutrophils % Seg Neuts % (Manual) Lymphocytes % (Manual) Monocytes % (Manual) Nucleated RBC % Seg Neutrophils # Seg Neutrophils # Man Lymphocytes # (Manual) Monocytes # (Manual) Eosinophils # (Manual) Basophils # (Manual) PT INR POC ABG pH ABG pH POC ABG pCO2 POC ABG pO2 ABG pO2 ABG O2 Saturation ABG Base Excess ABG Hemoglobin Oxyhemoglobin Sodium Potassium Chloride Carbon Dioxide BUN Creatinine Glucose POC Glucose 118 H 130 H 189 H Calcium Phosphorus Magnesium Iron TIBC Ferritin Total Bilirubin AST ALT Alkaline Phosphatase Total Creatine Kinase Troponin T C-Reactive Protein Total Protein Albumin Triglycerides HDL Cholesterol Miscellaneous Test Crossmatch 09/23/17 09/24/17 09/24/17 23:55 04:00 04:00 WBC 37.8 H RBC 2.76 L Hgb 8.1 L Hct 24.8 L MCV MCH MCHC RDW 19.8 H Plt Count 539 H Lymph % (Auto) [place] % (Auto) [place] # Seg Neutrophils % Seg Neuts % (Manual) Lymphocytes % (Manual) 4.0 L Monocytes % (Manual) Nucleated RBC % 6.0 H Seg Neutrophils # Seg Neutrophils # Man 19.3 H Lymphocytes # (Manual) Monocytes # (Manual) 1.5 H Eosinophils # (Manual) Basophils # (Manual) 0.4 H PT INR POC ABG pH ABG pH POC ABG pCO2 POC ABG pO2 ABG pO2 ABG O2 Saturation ABG Base Excess ABG Hemoglobin Oxyhemoglobin Sodium Potassium 3.5 L Chloride 95.2 L Carbon Dioxide BUN 67 H Creatinine 1.9 H Glucose 140 H POC Glucose 120 H Calcium 8.2 L Phosphorus 2.00 L Magnesium Iron TIBC Ferritin Total Bilirubin AST ALT Alkaline Phosphatase Total Creatine Kinase Troponin T C-Reactive Protein Total Protein Albumin Triglycerides HDL Cholesterol Miscellaneous Test Crossmatch 09/24/17 09/24/17 09/24/17 04:00 05:33 12:16 WBC RBC Hgb Hct MCV MCH MCHC RDW Plt Count Lymph % (Auto) [place] % (Auto) [place] # Seg Neutrophils % Seg Neuts % (Manual) Lymphocytes % (Manual) Monocytes % (Manual) Nucleated RBC % Seg Neutrophils # Seg Neutrophils # Man Lymphocytes # (Manual) Monocytes # (Manual) Eosinophils # (Manual) Basophils # (Manual) PT INR POC ABG pH ABG pH POC ABG pCO2 POC ABG pO2 ABG pO2 ABG O2 Saturation ABG Base Excess ABG Hemoglobin Oxyhemoglobin Sodium Potassium Chloride Carbon Dioxide BUN Creatinine Glucose POC Glucose 178 H 262 H Calcium Phosphorus Magnesium Iron TIBC Ferritin Total Bilirubin AST ALT Alkaline Phosphatase Total Creatine Kinase Troponin T C-Reactive Protein Total Protein Albumin Triglycerides HDL Cholesterol Miscellaneous Test Crossmatch See Detail 09/24/17 09/24/17 09/25/17 17:51 23:33 06:03 WBC RBC Hgb Hct MCV MCH MCHC RDW Plt Count Lymph % (Auto) [place] % (Auto) [place] # Seg Neutrophils % Seg Neuts % (Manual) Lymphocytes % (Manual) Monocytes % (Manual) Nucleated RBC % Seg Neutrophils # Seg Neutrophils # Man Lymphocytes # (Manual) Monocytes # (Manual) Eosinophils # (Manual) Basophils # (Manual) PT INR POC ABG pH ABG pH POC ABG pCO2 POC ABG pO2 ABG pO2 ABG O2 Saturation ABG Base Excess ABG Hemoglobin Oxyhemoglobin Sodium Potassium Chloride Carbon Dioxide BUN Creatinine Glucose POC Glucose 166 H 142 H 173 H Calcium Phosphorus Magnesium Iron TIBC Ferritin Total Bilirubin AST ALT Alkaline Phosphatase Total Creatine Kinase Troponin T C-Reactive Protein Total Protein Albumin Triglycerides HDL Cholesterol Miscellaneous Test Crossmatch 09/25/17 09/25/17 09/25/17 07:49 07:49 11:36 WBC 59.6 H* RBC 2.63 L Hgb 7.7 L Hct 26.0 L MCV 99 H MCH MCHC RDW 21.8 H Plt Count Lymph % (Auto) [place] % (Auto) [place] # Seg Neutrophils % Seg Neuts % (Manual) Lymphocytes % (Manual) 2.0 L Monocytes % (Manual) Nucleated RBC % 8.0 H Seg Neutrophils # Seg Neutrophils # Man 41.7 H Lymphocytes # (Manual) Monocytes # (Manual) 1.2 H Eosinophils # (Manual) Basophils # (Manual) PT INR POC ABG pH ABG pH POC ABG pCO2 POC ABG pO2 ABG pO2 ABG O2 Saturation ABG Base Excess ABG Hemoglobin Oxyhemoglobin Sodium Potassium 5.3 H D Chloride 97.7 L Carbon Dioxide 19 L BUN 90 H Creatinine 2.5 H Glucose 181 H POC Glucose 308 H Calcium 8.0 L Phosphorus Magnesium Iron TIBC Ferritin Total Bilirubin AST ALT Alkaline Phosphatase Total Creatine Kinase Troponin T C-Reactive Protein Total Protein Albumin Triglycerides HDL Cholesterol Miscellaneous Test Crossmatch 09/25/17 09/25/17 09/26/17 16:11 23:38 05:25 WBC 61.9 H* RBC 2.30 L Hgb 7.0 L Hct 21.4 L MCV MCH MCHC RDW 21.3 H Plt Count Lymph % (Auto) [place] % (Auto) [place] # Seg Neutrophils % Seg Neuts % (Manual) Lymphocytes % (Manual) 1.0 L Monocytes % (Manual) Nucleated RBC % 7.0 H Seg Neutrophils # Seg Neutrophils # Man 37.1 H Lymphocytes # (Manual) 0.6 L Monocytes # (Manual) 1.9 H Eosinophils # (Manual) Basophils # (Manual) PT INR POC ABG pH ABG pH POC ABG pCO2 POC ABG pO2 ABG pO2 ABG O2 Saturation ABG Base Excess ABG Hemoglobin Oxyhemoglobin Sodium Potassium Chloride Carbon Dioxide BUN Creatinine Glucose POC Glucose 249 H 263 H Calcium Phosphorus Magnesium Iron TIBC Ferritin Total Bilirubin AST ALT Alkaline Phosphatase Total Creatine Kinase Troponin T C-Reactive Protein Total Protein Albumin Triglycerides HDL Cholesterol Miscellaneous Test Crossmatch 09/26/17 09/26/17 09/26/17 05:25 05:32 11:33 WBC RBC Hgb Hct MCV MCH MCHC RDW Plt Count Lymph % (Auto) [place] % (Auto) [place] # Seg Neutrophils % Seg Neuts % (Manual) Lymphocytes % (Manual) Monocytes % (Manual) Nucleated RBC % Seg Neutrophils # Seg Neutrophils # Man Lymphocytes # (Manual) Monocytes # (Manual) Eosinophils # (Manual) Basophils # (Manual) PT INR POC ABG pH ABG pH POC ABG pCO2 POC ABG pO2 ABG pO2 ABG O2 Saturation ABG Base Excess ABG Hemoglobin Oxyhemoglobin Sodium Potassium Chloride Carbon Dioxide 21 L BUN 81 H Creatinine 2.3 H Glucose 178 H POC Glucose 225 H 246 H Calcium 8.1 L Phosphorus Magnesium Iron TIBC Ferritin Total Bilirubin AST ALT Alkaline Phosphatase Total Creatine Kinase Troponin T C-Reactive Protein Total Protein Albumin Triglycerides HDL Cholesterol Miscellaneous Test Crossmatch 09/26/17 09/27/17 09/27/17 17:43 00:11 04:00 WBC 63.0 H* RBC 2.23 L Hgb 6.3 L Hct 20.6 L MCV MCH MCHC RDW 20.6 H Plt Count Lymph % (Auto) [place] % (Auto) [place] # Seg Neutrophils % Seg Neuts % (Manual) Lymphocytes % (Manual) 3.0 L Monocytes % (Manual) Nucleated RBC % 6.0 H Seg Neutrophils # Seg Neutrophils # Man 40.3 H Lymphocytes # (Manual) Monocytes # (Manual) 4.4 H Eosinophils # (Manual) Basophils # (Manual) PT INR POC ABG pH ABG pH POC ABG pCO2 POC ABG pO2 ABG pO2 ABG O2 Saturation ABG Base Excess ABG Hemoglobin Oxyhemoglobin Sodium Potassium Chloride Carbon Dioxide BUN Creatinine Glucose POC Glucose 180 H 194 H Calcium Phosphorus Magnesium Iron TIBC Ferritin Total Bilirubin AST ALT Alkaline Phosphatase Total Creatine Kinase Troponin T C-Reactive Protein Total Protein Albumin Triglycerides HDL Cholesterol Miscellaneous Test Crossmatch 09/27/17 09/27/17 09/27/17 04:00 04:00 05:11 WBC RBC Hgb Hct MCV MCH MCHC RDW Plt Count Lymph % (Auto) [place] % (Auto) [place] # Seg Neutrophils % Seg Neuts % (Manual) Lymphocytes % (Manual) Monocytes % (Manual) Nucleated RBC % Seg Neutrophils # Seg Neutrophils # Man Lymphocytes # (Manual) Monocytes # (Manual) Eosinophils # (Manual) Basophils # (Manual) PT INR POC ABG pH ABG pH POC ABG pCO2 POC ABG pO2 ABG pO2 ABG O2 Saturation ABG Base Excess ABG Hemoglobin Oxyhemoglobin Sodium Potassium Chloride Carbon Dioxide 19 L BUN 102 H Creatinine 2.8 H Glucose 141 H POC Glucose 189 H Calcium 8.1 L Phosphorus Magnesium 2.40 H Iron TIBC Ferritin Total Bilirubin AST ALT Alkaline Phosphatase Total Creatine Kinase Troponin T C-Reactive Protein Total Protein Albumin Triglycerides HDL Cholesterol Miscellaneous Test Crossmatch 09/27/17 09/27/17 09/27/17 08:58 11:54 17:20 WBC RBC Hgb Hct MCV MCH MCHC RDW Plt Count Lymph % (Auto) [place] % (Auto) [place] # Seg Neutrophils % Seg Neuts % (Manual) Lymphocytes % (Manual) Monocytes % (Manual) Nucleated RBC % Seg Neutrophils # Seg Neutrophils # Man Lymphocytes # (Manual) Monocytes # (Manual) Eosinophils # (Manual) Basophils # (Manual) PT INR POC ABG pH ABG pH POC ABG pCO2 POC ABG pO2 ABG pO2 ABG O2 Saturation ABG Base Excess ABG Hemoglobin Oxyhemoglobin Sodium Potassium Chloride Carbon Dioxide BUN Creatinine Glucose POC Glucose 196 H 199 H Calcium Phosphorus Magnesium Iron TIBC Ferritin Total Bilirubin AST ALT Alkaline Phosphatase Total Creatine Kinase Troponin T C-Reactive Protein Total Protein Albumin Triglycerides HDL Cholesterol Miscellaneous Test Crossmatch See Detail 09/28/17 09/28/17 09/28/17 00:11 05:23 12:07 WBC RBC Hgb Hct MCV MCH MCHC RDW Plt Count Lymph % (Auto) [place] % (Auto) [place] # Seg Neutrophils % Seg Neuts % (Manual) Lymphocytes % (Manual) Monocytes % (Manual) Nucleated RBC % Seg Neutrophils # Seg Neutrophils # Man Lymphocytes # (Manual) Monocytes # (Manual) Eosinophils # (Manual) Basophils # (Manual) PT INR POC ABG pH ABG pH POC ABG pCO2 POC ABG pO2 ABG pO2 ABG O2 Saturation ABG Base Excess ABG Hemoglobin Oxyhemoglobin Sodium Potassium Chloride Carbon Dioxide BUN Creatinine Glucose POC Glucose 155 H 237 H 218 H Calcium Phosphorus Magnesium Iron TIBC Ferritin Total Bilirubin AST ALT Alkaline Phosphatase Total Creatine Kinase Troponin T C-Reactive Protein Total Protein Albumin Triglycerides HDL Cholesterol Miscellaneous Test Crossmatch 09/28/17 09/28/17 09/28/17 17:58 Unknown Unknown WBC 39.0 H RBC 3.10 L Hgb 9.6 L D Hct 27.6 L D MCV MCH MCHC 35 H RDW 17.1 H Plt Count Lymph % (Auto) [place] % (Auto) [place] # Seg Neutrophils % Seg Neuts % (Manual) 80.5 H Lymphocytes % (Manual) 0.5 L Monocytes % (Manual) Nucleated RBC % Seg Neutrophils # Seg Neutrophils # Man 31.4 H Lymphocytes # (Manual) 0.2 L Monocytes # (Manual) 2.5 H Eosinophils # (Manual) Basophils # (Manual) PT INR POC ABG pH ABG pH POC ABG pCO2 POC ABG pO2 ABG pO2 ABG O2 Saturation ABG Base Excess ABG Hemoglobin Oxyhemoglobin Sodium Potassium 3.4 L D Chloride Carbon Dioxide BUN 72 H Creatinine 2.0 H Glucose 194 H POC Glucose 108 H Calcium 7.4 L Phosphorus Magnesium Iron TIBC Ferritin Total Bilirubin AST ALT Alkaline Phosphatase Total Creatine Kinase Troponin T C-Reactive Protein Total Protein Albumin Triglycerides HDL Cholesterol Miscellaneous Test Crossmatch 09/29/17 09/29/17 09/29/17 00:12 06:00 06:00 WBC 28.0 H RBC 2.92 L Hgb 8.7 L Hct 26.5 L MCV MCH MCHC RDW 17.1 H Plt Count Lymph % (Auto) [place] % (Auto) [place] # Seg Neutrophils % Seg Neuts % (Manual) 74.5 H Lymphocytes % (Manual) 5.5 L Monocytes % (Manual) 10.5 H Nucleated RBC % Seg Neutrophils # Seg Neutrophils # Man 20.9 H Lymphocytes # (Manual) Monocytes # (Manual) 2.9 H Eosinophils # (Manual) Basophils # (Manual) PT INR POC ABG pH ABG pH POC ABG pCO2 POC ABG pO2 ABG pO2 ABG O2 Saturation ABG Base Excess ABG Hemoglobin Oxyhemoglobin Sodium Potassium Chloride 97.9 L Carbon Dioxide BUN 101 H Creatinine 2.5 H Glucose 177 H POC Glucose 117 H Calcium 7.6 L Phosphorus Magnesium Iron TIBC Ferritin Total Bilirubin AST ALT Alkaline Phosphatase Total Creatine Kinase Troponin T C-Reactive Protein Total Protein Albumin Triglycerides HDL Cholesterol Miscellaneous Test Crossmatch 09/29/17 09/29/17 09/29/17 06:27 11:50 17:27 WBC RBC Hgb Hct MCV MCH MCHC RDW Plt Count Lymph % (Auto) [place] % (Auto) [place] # Seg Neutrophils % Seg Neuts % (Manual) Lymphocytes % (Manual) Monocytes % (Manual) Nucleated RBC % Seg Neutrophils # Seg Neutrophils # Man Lymphocytes # (Manual) Monocytes # (Manual) Eosinophils # (Manual) Basophils # (Manual) PT INR POC ABG pH ABG pH POC ABG pCO2 POC ABG pO2 ABG pO2 ABG O2 Saturation ABG Base Excess ABG Hemoglobin Oxyhemoglobin Sodium Potassium Chloride Carbon Dioxide BUN Creatinine Glucose POC Glucose 183 H 209 H 150 H Calcium Phosphorus Magnesium Iron TIBC Ferritin Total Bilirubin AST ALT Alkaline Phosphatase Total Creatine Kinase Troponin T C-Reactive Protein Total Protein Albumin Triglycerides HDL Cholesterol Miscellaneous Test Crossmatch 09/30/17 09/30/17 09/30/17 05:20 05:20 05:31 WBC 23.0 H RBC 2.64 L Hgb 7.9 L Hct 23.9 L MCV MCH MCHC RDW 18.1 H Plt Count Lymph % (Auto) [place] % (Auto) [place] # Seg Neutrophils % Seg Neuts % (Manual) 29.0 L Lymphocytes % (Manual) Monocytes % (Manual) 11.0 H Nucleated RBC % Seg Neutrophils # Seg Neutrophils # Man Lymphocytes # (Manual) Monocytes # (Manual) 2.5 H Eosinophils # (Manual) Basophils # (Manual) PT INR POC ABG pH ABG pH POC ABG pCO2 POC ABG pO2 ABG pO2 ABG O2 Saturation ABG Base Excess ABG Hemoglobin Oxyhemoglobin Sodium Potassium Chloride 97.0 L Carbon Dioxide 20 L BUN 120 H Creatinine 2.9 H Glucose 126 H POC Glucose 143 H Calcium 8.2 L Phosphorus Magnesium Iron TIBC Ferritin Total Bilirubin AST ALT Alkaline Phosphatase Total Creatine Kinase Troponin T C-Reactive Protein Total Protein Albumin Triglycerides HDL Cholesterol Miscellaneous Test Crossmatch 09/30/17 09/30/17 10/01/17 11:24 23:40 05:45 WBC RBC Hgb Hct MCV MCH MCHC RDW Plt Count Lymph % (Auto) [place] % (Auto) [place] # Seg Neutrophils % Seg Neuts % (Manual) Lymphocytes % (Manual) Monocytes % (Manual) Nucleated RBC % Seg Neutrophils # Seg Neutrophils # Man Lymphocytes # (Manual) Monocytes # (Manual) Eosinophils # (Manual) Basophils # (Manual) PT INR POC ABG pH ABG pH POC ABG pCO2 POC ABG pO2 ABG pO2 ABG O2 Saturation ABG Base Excess ABG Hemoglobin Oxyhemoglobin Sodium Potassium Chloride Carbon Dioxide BUN 83 H Creatinine 2.2 H Glucose 140 H POC Glucose 197 H 121 H Calcium Phosphorus 2.40 L D Magnesium Iron TIBC Ferritin Total Bilirubin AST ALT Alkaline Phosphatase Total Creatine Kinase Troponin T C-Reactive Protein Total Protein Albumin Triglycerides HDL Cholesterol Miscellaneous Test Crossmatch 10/01/17 10/01/17 05:45 05:48 WBC 23.0 H RBC 2.60 L Hgb 7.8 L Hct 23.8 L MCV MCH MCHC RDW 17.5 H Plt Count Lymph % (Auto) [place] % (Auto) [place] # Seg Neutrophils % Seg Neuts % (Manual) 81.0 H Lymphocytes % (Manual) 2.0 L Monocytes % (Manual) 10.0 H Nucleated RBC % Seg Neutrophils # Seg Neutrophils # Man 18.6 H Lymphocytes # (Manual) 0.5 L Monocytes # (Manual) 2.3 H Eosinophils # (Manual) Basophils # (Manual) PT INR POC ABG pH ABG pH POC ABG pCO2 POC ABG pO2 ABG pO2 ABG O2 Saturation ABG Base Excess ABG Hemoglobin Oxyhemoglobin Sodium Potassium Chloride Carbon Dioxide BUN Creatinine Glucose POC Glucose 123 H Calcium Phosphorus Magnesium Iron TIBC Ferritin Total Bilirubin AST ALT Alkaline Phosphatase Total Creatine Kinase Troponin T C-Reactive Protein Total Protein Albumin Triglycerides HDL Cholesterol Miscellaneous Test Crossmatch
--- NOTE | 2017-10-01 11:47 | Progress Note ---
Assessment and Plan 62 y.o. F s/p ex lap, repair of enterotomy, then s/p ex lap, transverse colon resection, colostomy creation, and s/p ex lap, abdominal wash out and abdominal wall closure after wound dehiscence 3 weeks s/p ex lap for gastric perforation and sbo. complicated patient with hx of several abdominal procedures this admission, starting with surgery for SBO and gastric perforation. Most recently, s/p exlap and repair of enterotomy and midline closure with biologic mesh due to dehiscence tachycardia improving but still requiring pressor support leukocytosis- likley from peritonitis now improving after source controlled. abx per ID continues to improve Nurtrition: TPN for nutritional support. trickle feeds via g tube started. monitor residuals. High residual of 50cc over 4 hrs. Tube feeds held and should be restarted later in the day. Rec keep at 10cc until residuals are lower. wound care: -wound vac not possible due to retention suture- will discuss further with wound care team -santyl to border of wound at site of fat necrosis. -Monitor ostomy site - Renal : HD per renal DVT proph: scds GI: PPI. - Patient Problems (1) Peritonitis (acute) generalized Current Visit: Yes Status: Acute Subjective Narrative: Pt resting in bed. No acute events overnight Levo at 2 in the am. 50cc G tube residuals over 4 hrs. Objective Vital Signs - 12hr 09/30/17 10/01/17 10/01/17 23:49 00:00 00:15 Temperature Pulse Rate 108 H 116 H 116 H Pulse Rate [ 103 H Apical] Pulse Rate [ From Monitor] Pulse Rate [ Left Dorsalis Pedis] Pulse Rate [ 103 H Left Radial] Pulse Rate [ 103 H Right Dorsalis Pedis] Pulse Rate [ 103 H Right Radial] Respiratory 32 H 28 H Rate Blood Pressure 89/37 90/37 90/40 O2 Sat by Pulse 100 98 99 Oximetry O2 Sat by Pulse Oximetry [ Anterior Bilateral Throughout] O2 Sat by Pulse Oximetry [ Assessment] 10/01/17 10/01/17 10/01/17 00:30 00:45 01:00 Temperature Pulse Rate 112 H 112 H 110 H Pulse Rate [ Apical] Pulse Rate [ From Monitor] Pulse Rate [ Left Dorsalis Pedis] Pulse Rate [ Left Radial] Pulse Rate [ Right Dorsalis Pedis] Pulse Rate [ Right Radial] Respiratory 24 30 H 23 Rate Blood Pressure 85/34 86/39 84/40 O2 Sat by Pulse 99 98 98 Oximetry O2 Sat by Pulse Oximetry [ Anterior Bilateral Throughout] O2 Sat by Pulse Oximetry [ Assessment] 10/01/17 10/01/17 10/01/17 01:15 01:30 01:45 Temperature Pulse Rate 104 H 105 H 105 H Pulse Rate [ Apical] Pulse Rate [ From Monitor] Pulse Rate [ Left Dorsalis Pedis] Pulse Rate [ Left Radial] Pulse Rate [ Right Dorsalis Pedis] Pulse Rate [ Right Radial] Respiratory 25 H 33 H 21 Rate Blood Pressure 77/40 86/47 93/44 O2 Sat by Pulse 97 98 98 Oximetry O2 Sat by Pulse Oximetry [ Anterior Bilateral Throughout] O2 Sat by Pulse Oximetry [ Assessment] 10/01/17 10/01/17 10/01/17 02:00 02:15 02:30 Temperature Pulse Rate 101 H 105 H 104 H Pulse Rate [ Apical] Pulse Rate [ From Monitor] Pulse Rate [ Left Dorsalis Pedis] Pulse Rate [ Left Radial] Pulse Rate [ Right Dorsalis Pedis] Pulse Rate [ Right Radial] Respiratory 22 25 H 22 Rate Blood Pressure 88/42 102/44 97/46 O2 Sat by Pulse 99 97 98 Oximetry O2 Sat by Pulse Oximetry [ Anterior Bilateral Throughout] O2 Sat by Pulse Oximetry [ Assessment] 10/01/17 10/01/17 10/01/17 02:45 03:00 03:15 Temperature Pulse Rate 101 H 94 H 97 H Pulse Rate [ Apical] Pulse Rate [ From Monitor] Pulse Rate [ Left Dorsalis Pedis] Pulse Rate [ Left Radial] Pulse Rate [ Right Dorsalis Pedis] Pulse Rate [ Right Radial] Respiratory 18 22 24 Rate Blood Pressure 92/43 92/42 99/45 O2 Sat by Pulse 99 96 97 Oximetry O2 Sat by Pulse Oximetry [ Anterior Bilateral Throughout] O2 Sat by Pulse Oximetry [ Assessment] 10/01/17 10/01/17 10/01/17 03:17 03:30 03:33 Temperature 99.6 F Pulse Rate 99 H Pulse Rate [ 98 H Apical] Pulse Rate [ 98 H From Monitor] Pulse Rate [ 98 H Left Dorsalis Pedis] Pulse Rate [ 98 H Left Radial] Pulse Rate [ 98 H Right Dorsalis Pedis] Pulse Rate [ 98 H Right Radial] Respiratory 25 H Rate Blood Pressure 94/45 O2 Sat by Pulse 97 100 Oximetry O2 Sat by Pulse Oximetry [ Anterior Bilateral Throughout] O2 Sat by Pulse Oximetry [ Assessment] 10/01/17 10/01/17 10/01/17 03:45 03:58 04:00 Temperature Pulse Rate 100 H 110 H 95 H Pulse Rate [ Apical] Pulse Rate [ From Monitor] Pulse Rate [ Left Dorsalis Pedis] Pulse Rate [ Left Radial] Pulse Rate [ Right Dorsalis Pedis] Pulse Rate [ Right Radial] Respiratory 22 21 Rate Blood Pressure 95/48 90/45 O2 Sat by Pulse 96 99 98 Oximetry O2 Sat by Pulse Oximetry [ Anterior Bilateral Throughout] O2 Sat by Pulse Oximetry [ Assessment] 10/01/17 10/01/17 10/01/17 04:15 04:30 04:45 Temperature Pulse Rate 99 H 101 H 101 H Pulse Rate [ Apical] Pulse Rate [ From Monitor] Pulse Rate [ Left Dorsalis Pedis] Pulse Rate [ Left Radial] Pulse Rate [ Right Dorsalis Pedis] Pulse Rate [ Right Radial] Respiratory 25 H 26 H 23 Rate Blood Pressure 94/48 96/49 104/49 O2 Sat by Pulse 97 98 99 Oximetry O2 Sat by Pulse Oximetry [ Anterior Bilateral Throughout] O2 Sat by Pulse Oximetry [ Assessment] 10/01/17 10/01/17 10/01/17 05:00 05:15 05:30 Temperature Pulse Rate 99 H 93 H 100 H Pulse Rate [ Apical] Pulse Rate [ From Monitor] Pulse Rate [ Left Dorsalis Pedis] Pulse Rate [ Left Radial] Pulse Rate [ Right Dorsalis Pedis] Pulse Rate [ Right Radial] Respiratory 19 20 22 Rate Blood Pressure 96/49 94/44 100/51 O2 Sat by Pulse 98 99 99 Oximetry O2 Sat by Pulse Oximetry [ Anterior Bilateral Throughout] O2 Sat by Pulse Oximetry [ Assessment] 10/01/17 10/01/17 10/01/17 05:45 06:00 06:15 Temperature Pulse Rate 100 H 100 H 102 H Pulse Rate [ Apical] Pulse Rate [ From Monitor] Pulse Rate [ Left Dorsalis Pedis] Pulse Rate [ Left Radial] Pulse Rate [ Right Dorsalis Pedis] Pulse Rate [ Right Radial] Respiratory 24 23 15 Rate Blood Pressure 102/50 106/51 107/53 O2 Sat by Pulse 98 100 99 Oximetry O2 Sat by Pulse Oximetry [ Anterior Bilateral Throughout] O2 Sat by Pulse Oximetry [ Assessment] 10/01/17 10/01/17 10/01/17 06:30 06:45 07:00 Temperature Pulse Rate 105 H 99 H 102 H Pulse Rate [ Apical] Pulse Rate [ From Monitor] Pulse Rate [ Left Dorsalis Pedis] Pulse Rate [ Left Radial] Pulse Rate [ Right Dorsalis Pedis] Pulse Rate [ Right Radial] Respiratory 17 22 19 Rate Blood Pressure 112/61 102/51 99/51 O2 Sat by Pulse 98 99 99 Oximetry O2 Sat by Pulse Oximetry [ Anterior Bilateral Throughout] O2 Sat by Pulse Oximetry [ Assessment] 10/01/17 10/01/17 10/01/17 07:15 07:30 07:45 Temperature Pulse Rate 103 H 103 H 105 H Pulse Rate [ Apical] Pulse Rate [ From Monitor] Pulse Rate [ Left Dorsalis Pedis] Pulse Rate [ Left Radial] Pulse Rate [ Right Dorsalis Pedis] Pulse Rate [ Right Radial] Respiratory 25 H 23 24 Rate Blood Pressure 109/53 106/53 108/46 O2 Sat by Pulse 98 99 100 Oximetry O2 Sat by Pulse Oximetry [ Anterior Bilateral Throughout] O2 Sat by Pulse Oximetry [ Assessment] 10/01/17 10/01/17 10/01/17 08:00 08:15 08:30 Temperature 98.6 F Pulse Rate 109 H 110 H 107 H Pulse Rate [ Apical] Pulse Rate [ 103 H From Monitor] Pulse Rate [ Left Dorsalis Pedis] Pulse Rate [ Left Radial] Pulse Rate [ Right Dorsalis Pedis] Pulse Rate [ Right Radial] Respiratory 22 23 21 Rate Blood Pressure 119/47 103/47 101/53 O2 Sat by Pulse 99 100 100 Oximetry O2 Sat by Pulse Oximetry [ Anterior Bilateral Throughout] O2 Sat by Pulse 99 Oximetry [ Assessment] 10/01/17 10/01/17 10/01/17 08:45 09:00 09:10 Temperature 98.6 F Pulse Rate 105 H 109 H 109 H Pulse Rate [ Apical] Pulse Rate [ From Monitor] Pulse Rate [ Left Dorsalis Pedis] Pulse Rate [ Left Radial] Pulse Rate [ Right Dorsalis Pedis] Pulse Rate [ Right Radial] Respiratory 22 23 Rate Blood Pressure 110/55 111/48 111/48 O2 Sat by Pulse 99 Oximetry O2 Sat by Pulse 99 Oximetry [ Anterior Bilateral Throughout] O2 Sat by Pulse Oximetry [ Assessment] 10/01/17 10/01/17 10/01/17 09:15 09:30 09:31 Temperature Pulse Rate 106 H 108 H 106 H Pulse Rate [ Apical] Pulse Rate [ From Monitor] Pulse Rate [ Left Dorsalis Pedis] Pulse Rate [ Left Radial] Pulse Rate [ Right Dorsalis Pedis] Pulse Rate [ Right Radial] Respiratory 26 H 26 H Rate Blood Pressure 122/48 106/52 106/52 O2 Sat by Pulse 95 100 Oximetry O2 Sat by Pulse Oximetry [ Anterior Bilateral Throughout] O2 Sat by Pulse Oximetry [ Assessment] 10/01/17 10/01/17 10/01/17 09:45 09:49 10:00 Temperature Pulse Rate 109 H 109 H 109 H Pulse Rate [ Apical] Pulse Rate [ From Monitor] Pulse Rate [ Left Dorsalis Pedis] Pulse Rate [ Left Radial] Pulse Rate [ Right Dorsalis Pedis] Pulse Rate [ Right Radial] Respiratory 14 Rate Blood Pressure 106/49 106/49 92/46 O2 Sat by Pulse 88 Oximetry O2 Sat by Pulse Oximetry [ Anterior Bilateral Throughout] O2 Sat by Pulse Oximetry [ Assessment] 10/01/17 10/01/17 10/01/17 10:01 10:15 10:16 Temperature Pulse Rate 109 H 113 H 112 H Pulse Rate [ Apical] Pulse Rate [ From Monitor] Pulse Rate [ Left Dorsalis Pedis] Pulse Rate [ Left Radial] Pulse Rate [ Right Dorsalis Pedis] Pulse Rate [ Right Radial] Respiratory 25 H 25 H Rate Blood Pressure 92/46 92/46 86/41 O2 Sat by Pulse 99 99 Oximetry O2 Sat by Pulse Oximetry [ Anterior Bilateral Throughout] O2 Sat by Pulse Oximetry [ Assessment] 10/01/17 10/01/17 10/01/17 10:30 10:31 10:45 Temperature Pulse Rate 101 H 110 H 111 H Pulse Rate [ Apical] Pulse Rate [ From Monitor] Pulse Rate [ Left Dorsalis Pedis] Pulse Rate [ Left Radial] Pulse Rate [ Right Dorsalis Pedis] Pulse Rate [ Right Radial] Respiratory 27 H Rate Blood Pressure 90/41 83/44 98/46 O2 Sat by Pulse 95 Oximetry O2 Sat by Pulse Oximetry [ Anterior Bilateral Throughout] O2 Sat by Pulse Oximetry [ Assessment] 10/01/17 10/01/17 10/01/17 11:01 11:15 11:19 Temperature 98.6 F Pulse Rate 108 H 111 H 112 H Pulse Rate [ Apical] Pulse Rate [ From Monitor] Pulse Rate [ Left Dorsalis Pedis] Pulse Rate [ Left Radial] Pulse Rate [ Right Dorsalis Pedis] Pulse Rate [ Right Radial] Respiratory 28 H Rate Blood Pressure 97/41 111/48 111/48 O2 Sat by Pulse Oximetry O2 Sat by Pulse 99 Oximetry [ Anterior Bilateral Throughout] O2 Sat by Pulse Oximetry [ Assessment] - General physical appearance chronically ill, obese - Respiratory normal expansion, normal respiratory effort - Abdomen soft, other (dressing cdi. ostomy patent, green in slough at edges with pink center. +liquid stool and air in bag. dressing not removed since nursing changed in am. Nikita in place x 2 ) - Labs 10/01/17 05:45 10/01/17 05:45 Diabetes panel 10/01/17 Range/Units 05:45 Sodium 144 (137-145) mmol/L Potassium 3.6 (3.6-5.0) mmol/L Chloride 103.6 (98-107) mmol/L Carbon Dioxide 24 (22-30) mmol/L BUN 83 H (7-17) mg/dL Creatinine 2.2 H (0.7-1.2) mg/dL Glucose 140 H (65-100) mg/dL Calcium 8.4 (8.4-10.2) mg/dL Calcium panel 10/01/17 Range/Units 05:45 Calcium 8.4 (8.4-10.2) mg/dL Phosphorus 2.40 L D (2.5-4.5) mg/dL Pituitary panel 10/01/17 Range/Units 05:45 Sodium 144 (137-145) mmol/L Potassium 3.6 (3.6-5.0) mmol/L Chloride 103.6 (98-107) mmol/L Carbon Dioxide 24 (22-30) mmol/L BUN 83 H (7-17) mg/dL Creatinine 2.2 H (0.7-1.2) mg/dL Glucose 140 H (65-100) mg/dL Calcium 8.4 (8.4-10.2) mg/dL Adrenal panel 10/01/17 Range/Units 05:45 Sodium 144 (137-145) mmol/L Potassium 3.6 (3.6-5.0) mmol/L Chloride 103.6 (98-107) mmol/L Carbon Dioxide 24 (22-30) mmol/L BUN 83 H (7-17) mg/dL Creatinine 2.2 H (0.7-1.2) mg/dL Glucose 140 H (65-100) mg/dL Calcium 8.4 (8.4-10.2) mg/dL
[2017-10-01] MEDS: PROTONIX IV SCH (11:48)
[2017-10-01] MEDS: PROAMATINE FEEDTUBE SCH ×3 (11:48→22:00)
[2017-10-01] MEDS: DILAUDID IV PRN (15:14)
--- NOTE | 2017-10-01 16:00 | Progress Note ---
Assessment and Plan Assessment and plan: 62 yo female with abdominal abscess and peritonitis s/p surgical intervention complicated with bowel obstruction/surgical wound infection/dehiscence and multiple surgical reinterventions, with respiratory failure and refractory hypotension Acute bacterial peritonitis/intra-abdominal abscess/bowel obstruction S/p PD catheter removal and multiple exploratory laparatomy 08/17 expl lap - abscess LUQ, bowel obstruction, ?perforation of unclear location ; PDs cath removal, abd washout, G tube placement 08/31 expl lap with washout and closure 09/15 expl lap transverse colectomy, right-sided colostomy, washout 09/24 expl lap abdominal washout, placement of biological mesh, closure of small bowel enterotomy Complicated with wound infection, dehiscence Multiple antibiotic courses per ID recommendation; currently on meropenem and fluconazole day 05/31 Septic shock Due to abdominal abscess and catheter associated UTI On antibiotics Still on low-dose Levophed and midodrine Acute hypoxic respiratory failure Status post trach Still on vent, PSV trials Weaning per pulmonary End-stage renal disease Previously on PD, s/p cath removal and switched to HD Nephro following and assessing HD needs Anemia Blood loss anemia + anemia of chronic disease S/p PRBCs Epogen with HD Monitor H&H Ulcerative esophagitis/small gastric ulcer S/p EGD S/p multiple transfusions On PPI CAUTI Completed antibiotics Pancreatitis Resolved Leukocytosis Slowly trending down Monitor ID following NSVT Cardiology believes that it was secondary to Levophed which now weaning off History of cervical surgery Wheelchair bound since then Pain control Penicillin allergy ? Has taken keflex in the past w/o problems Malnutrition On TPN Started on TF, but high residuals DVT prophylaxis SCDs History Interval history: awake, alert, on PSV trial no acute events Hospitalist Physical - Constitutional Vitals: Temp Pulse Resp BP Pulse Ox 98.9 F 105 H 28 H 124/40 96 10/01/17 12:00 10/01/17 15:31 10/01/17 15:31 10/01/17 15:31 10/01/17 15:31 General appearance: Present: mild distress, obese - EENT Eyes: Present: PERRL, EOM intact - Neck Neck: Present: supple. Absent: enlarged thyroid, masses or JVD - Respiratory Respiratory effort: other (intubated) Respiratory: bilateral: diminished, negative: rhonchi, wheezing - Cardiovascular Rhythm: other (tachycardic) Heart Sounds: Present: S1 & S2. Absent: systolic murmur - Extremities Extremities: no ischemia - Abdominal General gastrointestinal: soft, tender, normal bowel sounds, other (G-tube, MERVIN drain, ostomy, dressing in place) - Neurologic Neurologic: other (paraplegia) Results - Labs CBC & Chem 7: 10/03/17 04:00 10/02/17 05:00 Labs: Laboratory Last Values WBC 23.0 K/mm3 (4.5-11.0) H 10/01/17 05:45 RBC 2.60 M/mm3 (3.65-5.03) L 10/01/17 05:45 Hgb 7.8 gm/dl (10.1-14.3) L 10/01/17 05:45 Hct 23.8 % (30.3-42.9) L 10/01/17 05:45 MCV 91 fl (79-97) 10/01/17 05:45 MCH 30 pg (28-32) 10/01/17 05:45 MCHC 33 % (30-34) 10/01/17 05:45 RDW 17.5 % (13.2-15.2) H 10/01/17 05:45 Plt Count 231 K/mm3 (140-440) 10/01/17 05:45 Lymph % (Auto) Leadership Program Intern 08/19/17 07:37 [place] % (Auto) Leadership Program Intern 09/30/17 05:20 Eos % (Auto) Leadership Program Intern 08/19/17 07:37 Baso % (Auto) Leadership Program Intern 08/19/17 07:37 Lymph # Leadership Program Intern 09/26/17 05:25 [place] # Leadership Program Intern 08/19/17 07:37 Eos # Leadership Program Intern 08/19/17 07:37 Baso # Leadership Program Intern 08/19/17 07:37 Add Manual Diff Complete 10/01/17 05:45 Total Counted 100 10/01/17 05:45 Seg Neutrophils % Leadership Program Intern 09/08/17 04:05 Seg Neuts % (Manual) 81.0 % (40.0-70.0) H 10/01/17 05:45 Band Neutrophils % 2.0 % 10/01/17 05:45 Lymphocytes % (Manual) 2.0 % (13.4-35.0) L 10/01/17 05:45 Reactive Lymphs % (Man) 3.0 % 10/01/17 05:45 Monocytes % (Manual) 10.0 % (0.0-7.3) H 10/01/17 05:45 Eosinophils % (Manual) 0 % (0.0-4.3) 10/01/17 05:45 Basophils % (Manual) 0 % (0.0-1.8) 10/01/17 05:45 Metamyelocytes % 2.0 % 10/01/17 05:45 Myelocytes % 0 % 10/01/17 05:45 Promyelocytes % 0 % 10/01/17 05:45 Blast Cells % 0 % 10/01/17 05:45 Nucleated RBC % Not Reportable 10/01/17 05:45 Seg Neutrophils # Leadership Program Intern 08/19/17 07:37 Seg Neutrophils # Man 18.6 K/mm3 (1.8-7.7) H 10/01/17 05:45 Band Neutrophils # 0.5 K/mm3 10/01/17 05:45 Lymphocytes # (Manual) 0.5 K/mm3 (1.2-5.4) L 10/01/17 05:45 Abs React Lymphs (Man) 0.7 K/mm3 10/01/17 05:45 Monocytes # (Manual) 2.3 K/mm3 (0.0-0.8) H 10/01/17 05:45 Eosinophils # (Manual) 0.0 K/mm3 (0.0-0.4) 10/01/17 05:45 Basophils # (Manual) 0.0 K/mm3 (0.0-0.1) 10/01/17 05:45 Metamyelocytes # 0.5 K/mm3 10/01/17 05:45 Myelocytes # 0.0 K/mm3 10/01/17 05:45 Promyelocytes # 0.0 K/mm3 10/01/17 05:45 Blast Cells # 0.0 K/mm3 10/01/17 05:45 Pathologist Review Not Reportable 08/30/17 05:20 WBC Morphology Not Reportable 10/01/17 05:45 Hypersegmented Neuts Not Reportable 10/01/17 05:45 Hyposegmented Neuts Not Reportable 10/01/17 05:45 Hypogranular Neuts Not Reportable 10/01/17 05:45 Smudge Cells Not Reportable 10/01/17 05:45 Toxic Granulation Not Reportable 10/01/17 05:45 Toxic Vacuolation Not Reportable 10/01/17 05:45 Dohle Bodies Not Reportable 10/01/17 05:45 Pelger-Huet Anomaly Not Reportable 10/01/17 05:45 Ariel Rods Not Reportable 10/01/17 05:45 Platelet Estimate Consistent w auto 10/01/17 05:45 Clumped Platelets Not Reportable 10/01/17 05:45 Plt Clumps, EDTA Not Reportable 10/01/17 05:45 Large Platelets Few 10/01/17 05:45 Giant Platelets Not Reportable 10/01/17 05:45 Platelet Satelliting Not Reportable 10/01/17 05:45 Plt Morphology Comment Not Reportable 10/01/17 05:45 RBC Morphology Not Reportable 10/01/17 05:45 Dimorphic RBCs Not Reportable 10/01/17 05:45 Polychromasia Few 10/01/17 05:45 Hypochromasia 1+ 10/01/17 05:45 Poikilocytosis Few 10/01/17 05:45 Anisocytosis 1+ 10/01/17 05:45 Microcytosis Not Reportable 10/01/17 05:45 Macrocytosis Not Reportable 10/01/17 05:45 Spherocytes Few 10/01/17 05:45 Pappenheimer Bodies Not Reportable 10/01/17 05:45 Sickle Cells Not Reportable 10/01/17 05:45 Target Cells Not Reportable 10/01/17 05:45 Tear Drop Cells Not Reportable 10/01/17 05:45 Ovalocytes Not Reportable 10/01/17 05:45 Stomatocytes Rare 09/12/17 05:25 Helmet Cells Not Reportable 10/01/17 05:45 [place] Bodies Not Reportable 10/01/17 05:45 [place] Rings Not Reportable 10/01/17 05:45 Yusuf Cells Not Reportable 10/01/17 05:45 Bite Cells Not Reportable 10/01/17 05:45 Crenated Cell Not Reportable 10/01/17 05:45 Elliptocytes Not Reportable 10/01/17 05:45 Acanthocytes (Spur) Not Reportable 10/01/17 05:45 Rouleaux Not Reportable 10/01/17 05:45 Hemoglobin C Crystals Not Reportable 10/01/17 05:45 Schistocytes Rare 10/01/17 05:45 Malaria parasites Not Reportable 10/01/17 05:45 Jovanni Bodies Not Reportable 10/01/17 05:45 Hem Pathologist Commnt No 10/01/17 05:45 PT 14.9 Sec. (12.2-14.9) 09/21/17 07:00 INR 1.11 (0.87-1.13) 09/21/17 07:00 APTT 28.7 Sec. (24.2-36.6) 08/31/17 18:15 POC ABG pH 7.347 (7.35-7.45) L 09/13/17 11:36 ABG pH 7.323 pH Units (7.350-7.450) L 09/09/17 Unknown POC ABG pCO2 34.3 (35-45) L 09/13/17 11:36 ABG pCO2 41.1 mm Hg 09/09/17 Unknown POC ABG pO2 134 (80-105) H 09/13/17 11:36 ABG pO2 94.1 mm Hg (80.0-90.0) H 09/09/17 Unknown POC ABG HCO3 18.8 09/13/17 11:36 ABG HCO3 20.9 mmol/L (20.0-26.0) 09/09/17 Unknown POC ABG Total CO2 20 09/13/17 11:36 POC ABG O2 Sat 99 09/13/17 11:36 ABG O2 Saturation 97.2 % (95.0-99.0) 09/09/17 Unknown ABG O2 Content 10.9 (0.0-44) 09/09/17 Unknown POC ABG Base Excess -7 09/13/17 11:36 ABG Base Excess -4.8 mmol/L (-2.0-3.0) L 09/09/17 Unknown ABG Hemoglobin 8.0 gm/dl (12.0-16.0) L 09/09/17 Unknown ABG Carboxyhemoglobin 2.0 % (0.0-5.0) 09/09/17 Unknown ABG Methemoglobin 0.3 % (0.0-1.5) 09/09/17 Unknown VBG pH 7.462 (7.320-7.420) H 08/08/17 14:52 Oxyhemoglobin 94.9 % (95.0-99.0) L 09/09/17 Unknown FiO2 30 % 09/13/17 11:36 Sodium 144 mmol/L (137-145) 10/01/17 05:45 Potassium 3.6 mmol/L (3.6-5.0) 10/01/17 05:45 Chloride 103.6 mmol/L (98-107) 10/01/17 05:45 Carbon Dioxide 24 mmol/L (22-30) 10/01/17 05:45 Anion Gap 20 mmol/L 10/01/17 05:45 BUN 83 mg/dL (7-17) H 10/01/17 05:45 Creatinine 2.2 mg/dL (0.7-1.2) H 10/01/17 05:45 Estimated GFR 28 ml/min 10/01/17 05:45 BUN/Creatinine Ratio 38 % 10/01/17 05:45 Glucose 140 mg/dL (65-100) H 10/01/17 05:45 POC Glucose 123 (70-105) H 10/01/17 05:48 Lactic Acid 1.60 mmol/L (0.7-2.0) 08/17/17 11:20 Calcium 8.4 mg/dL (8.4-10.2) 10/01/17 05:45 Phosphorus 2.40 mg/dL (2.5-4.5) L D 10/01/17 05:45 Magnesium 1.70 mg/dL (1.7-2.3) 10/01/17 05:45 Iron 22 ug/dL (37-170) L 09/12/17 05:25 TIBC 81 mcg/dL (250-450) L 09/12/17 05:25 Ferritin > 2000.0 ng/mL (13.0-400.0) H 09/12/17 05:25 Total Bilirubin 0.70 mg/dL (0.1-1.2) 09/22/17 03:37 Direct Bilirubin 0.2 mg/dL (0-0.2) 08/08/17 14:11 Indirect Bilirubin 0.3 mg/dL 08/08/17 14:11 AST 33 units/L (5-40) 09/22/17 03:37 ALT 16 units/L (7-56) 09/22/17 03:37 Alkaline Phosphatase 311 units/L (35-129) H 09/22/17 03:37 Ammonia 25.0 umol/L (25-60) 08/08/17 14:52 Total Creatine Kinase 20 units/L (30-135) L 09/16/17 05:30 Troponin T 0.132 ng/mL (0.00-0.029) H* 08/09/17 13:25 C-Reactive Protein 2.80 mg/dL (0.00-1.30) H 09/06/17 05:30 NT-Pro-B Natriuret Pep 6156 pg/mL (0-900) H 08/08/17 14:11 Total Protein 4.4 g/dL (6.3-8.2) L 09/22/17 03:37 Albumin 2.0 g/dL (3.9-5) L 09/22/17 03:37 Albumin/Globulin Ratio 0.8 % 09/22/17 03:37 Triglycerides 180 mg/dL (2-149) H 09/03/17 04:00 Cholesterol 91 mg/dL (50-199) 08/08/17 21:23 LDL Cholesterol Direct 53 mg/dL (50-130) 08/08/17 21:23 HDL Cholesterol 26 mg/dL (40-59) L 08/08/17 21:23 Cholesterol/HDL Ratio 3.50 % 08/08/17 21:23 Amylase 45 units/L (27-131) 08/16/17 09:50 Lipase 34 units/L (13-60) 08/16/17 09:50 TSH 6.580 mlU/mL (0.270-4.200) H 08/08/17 14:22 Free T4 1.46 ng/dL (0.76-1.46) 08/08/17 14:22 Total Cortisol 28.3 mcg/dL () 09/13/17 12:50 Urine Color Yellow (Yellow) 08/08/17 20:15 Urine Turbidity Turbid (Clear) 08/08/17 20:15 Urine pH 8.0 (5.0-7.0) H 08/08/17 20:15 Ur Specific [place] 1.015 (1.003-1.030) 08/08/17 20:15 Urine Protein 100 mg/dl mg/dL (Negative) 08/08/17 20:15 Urine Glucose (UA) Neg mg/dL (Negative) 08/08/17 20:15 Urine Ketones Neg mg/dL (Negative) 08/08/17 20:15 Urine Blood Mod (Negative) 08/08/17 20:15 Urine Nitrite Neg (Negative) 08/08/17 20:15 Urine Bilirubin Neg (Negative) 08/08/17 20:15 Urine Urobilinogen < 2.0 mg/dL (<2.0) 08/08/17 20:15 Ur Leukocyte Esterase Lg (Negative) 08/08/17 20:15 Urine WBC (Auto) 24.0 /HPF (0.0-6.0) H 08/08/17 20:15 Urine RBC (Auto) 3.0 /HPF (0.0-6.0) 08/08/17 20:15 U Epithel Cells (Auto) 3.0 /HPF (0-13.0) 08/08/17 20:15 Urine Bacteria (Auto) 4+ /HPF (Negative) 08/08/17 20:15 Urine Mucus 3+ /HPF 08/08/17 20:15 Fluid Type Peritoneal 08/08/17 18:18 Fluid Color Straw 08/08/17 18:18 Fluid Appearance Clear 08/08/17 18:18 Fluid pH 7.74 08/08/17 18:18 Fluid WBC 4 /mm3 08/08/17 18:18 Fluid RBC 1 /mm3 08/08/17 18:18 Fluid Seg Neutrophils 12 % 08/08/17 18:18 Fluid Lymphocytes 0 % 08/08/17 18:18 Fluid Reactive Lymphs 0 % 08/08/17 18:18 Fluid Monocytes 1 % 08/08/17 18:18 Fluid Eosinophils 0 % 08/08/17 18:18 Fluid Basophils 0 % 08/08/17 18:18 Fluid Glucose 315 mg/dL (40-70) H 08/08/17 18:18 Random Vancomycin 19.5 ug/mL (0-40.0) 08/22/17 03:40 Hep Bs Antigen Non-reactive (Negative) 08/22/17 03:40 Hepatitis C Antibody Non-reactive (NonReactive) 08/22/17 03:40 Miscellaneous Test Flexitest 1 H 09/06/17 09:57 Blood Type O POSITIVE 09/27/17 08:58 Antibody Screen Negative 09/27/17 08:58 VAN Antibody Screen Negative 09/07/17 17:07 Crossmatch See Detail 09/27/17 08:58
--- NOTE | 2017-10-01 17:54 | Progress Note ---
Assessment and Plan - Patient Problems (1) Leukocytosis Current Visit: Yes Status: Acute Qualifiers: Leukocytosis type: L Plan to address problem: See notes above. make sure that PD access is clean also. see notes. Probably infection from the infected PD catheter. improving. back up again. up/down continue to monitor. it continuos to rise. still high. improved. Back up. Now improving again. still in the same range as yesterday.. worse today. 37,000 59,000 61.9 63,000. 39,000 today. 28,000. 23,000 (2) Anemia Current Visit: Yes Status: Acute Qualifiers: Anemia type: A Iron deficiency anemia type: I Vitamin B12 deficiency anemia type: V Folate deficiency anemia type: F Bone marrow failure anemia type: B Hemolytic anemia type: H Other causes of anemia: O Chronic kidney disease stage: C Plan to address problem: see notes , monitor labs,. see notes above. continue to monitor labs with you. blood transfusion. S/P replacement transfusion. fair. s/p 1unit transfusion. see notes. Still at 7.4 6.9, scheduled for replacement. Fairly stable at this time. continue to monitor. If less, or equal to 7.0, will need replacement transfusion, with HD. Fair at this time. 7.7 today 7.0, needs blood with next HD. 6.3, and transfused. better post transfusion. stable. (3) Acute respiratory failure Current Visit: Yes Status: Acute Qualifiers: Respiratory failure complication: R Plan to address problem: follow pulm. Subjective Date of service: 10/01/17 Principal diagnosis: respiratory failure, sepsis, shock rectal bleeding Interval history: Patient seen today/examined, labs reviewed, case d/w she, and family.complaints of abdominal pain. Patient resting in bed in the ICU, post vascular procedure. labs reviewed, Reactive thrombocytosis, anemia of CD, leukocytosis from infection vs inflamatory process. Patient seen/examined, in bed in the ICU, on the vent post surgery.Labs reviewed , notes reviewed. will continue to monitor labs/patient with you. Replacement transfusion, if /when indicated. patient seen/examined, SBP75, on pressors., lethargic, on the vent, labs reviewed, wbc 39,000 Patient seen/examined, case reviewed, d/w her sister at the bed side. Patient seen/examined, labs reviewed, notes reviewed. severe septic shock from infected PD catheter The high wbc is all infection related. H?H low, and may get replacement transfusion with the next HD. Prognosis remain quite poor. Patient seen/examined, extubated, now on V Mask. labs reviewed. patient seen/examined, resting in bed, still some what lethargic . labs reviewed. Patient seen/examined, resting in bed., some difficulty with breathing./ lethargic. patient seen/examined, resting in bed, looked much better labs reviewed, and fair over all. Patient seen/examined, resting in bed, labs reviewed, case d/w her. Patient seen/examined, resting in bed on BIPAP., labs reviewed. patient seen/examined, resting in bed, on Bipap.labs reviewed, fairly stable. Patient seen today, resting in bed, labs reviewed, H/H low, and transfusion already ordered. Patient seen/examined, resting in bed, transferred back to the unit, due to resp failure. She is now on venting mask. had blood replacement done. Patient seen/examined in the ICU.labs reviewed. patient intubated this am. patient resting in bed.no new issues. Patient seen/examined in the ICU, on vent,Not readily responsive. patient seen, resting in bed, no new cbc ready.will order for today. Patient seen, resting in vent, labs reviewed.notes reviewed also. patient seen/examined, resting on vent, had HD yesterday, and today., labs reviewed. Patient seen, resting in bed, labs reviewed.fairly stable labs, except the wbc. Patient seen/examined, rtesting in bed on the vent.Labs reviewed, wbc still elevated, Hgb dropped slightly. Patient seen/examined, labs reviewed, hgb 7.3, if 7.0 or less, will replace .unless otherwise indicated. Patient seen/examined, alert but lethargic.sedation drip turned down.she is s/p 1unit PRBC replacement with HD today. Patient seen/examined, labs reviewed, hgb still not quite enough at 7.5, perhaps with the next HD,can use 1-2 units. Patient seen/examined, resting in bed, trached, labs re viewed. Patient seen/examined, resting in bed, responds to name calling, SBP99, labs reviewed, Hgb 6.9, PRBC replacement ordered by primary. Patient seen/examined, in bed/trach, NGT., alert/lethargic. Patient seen/examined, resting in bed, still lethargic, labs reviewed, and still fair.Will continue to follow you. Patient seen/examined, resting in bed, labs reviewed. HD in progress.She is now getting daily HD.Labs reviewed, and still fair. Patient seen/examined, resting in bed, less lethargic/less toxic looking. labs have improved. Patient seen/examined, labs reviewed, fair, case d/w her spouse at the bed side. Patient seen/examined, resting ok in bed, alert, NAD, HD in progress.Labs reviewed, and WBC 27,000, Hgb 7.8. Patient seen/examined, resting in bed in the ICU, NAD.labs reviewed, and fair. Patient seen/examined, resting in bed, labs reviewed, WBC back up,to37,000, and Hgb down to 7.3, transfusion will be needed ,if hgb less, or equal to 7.0 Patient seen/examined, resting in bed in the ICU, alert, lethargic, labs reviewed, and fair. She remains on 5mics of levophed., Temp 100. Patient seen/examined in the ICU, alert, Labs reviewed, WBC 59,000. Patient seen/examined, resting in bed, labs reviewed, WBC up to 61.9,000, Hgb 7.0, and may benefit from PRBC replacement of 2units with HD. Patient seen/examined, resting in bed, easily awoken.Hgb low at 6.3, replaced earlier with HD today.will need repeat labs in am. Patient seen/examined today, resting in bed in the ICU, labs reviewed, WBC down again to 39,000., H/H stable, post transfusion. Patient seen/examined, labs reviewed, case d/w her spouse at the bed side. WBC down to 28,000. patient seen/examined, resting in bed, more alert today, wbc better. Patient seen/examined, resting in bed, labs reviewed, case d/w her family at the bed side in the ICU. she is alert, WBC still down at 23,000. Objective - Constitutional Vitals: Vital Signs - 12hr 10/01/17 10/01/17 10/01/17 06:00 06:15 06:30 Temperature Pulse Rate 100 H 102 H 105 H Pulse Rate [ From Monitor] Respiratory 23 15 17 Rate Blood Pressure 106/51 107/53 112/61 O2 Sat by Pulse 100 99 98 Oximetry O2 Sat by Pulse Oximetry [ Anterior Bilateral Throughout] O2 Sat by Pulse Oximetry [ Assessment] 10/01/17 10/01/17 10/01/17 06:45 07:00 07:15 Temperature Pulse Rate 99 H 102 H 103 H Pulse Rate [ From Monitor] Respiratory 22 19 25 H Rate Blood Pressure 102/51 99/51 109/53 O2 Sat by Pulse 99 99 98 Oximetry O2 Sat by Pulse Oximetry [ Anterior Bilateral Throughout] O2 Sat by Pulse Oximetry [ Assessment] 10/01/17 10/01/17 10/01/17 07:30 07:45 08:00 Temperature 98.6 F Pulse Rate 103 H 105 H 109 H Pulse Rate [ 103 H From Monitor] Respiratory 23 24 22 Rate Blood Pressure 106/53 108/46 119/47 O2 Sat by Pulse 99 100 99 Oximetry O2 Sat by Pulse Oximetry [ Anterior Bilateral Throughout] O2 Sat by Pulse 99 Oximetry [ Assessment] 10/01/17 10/01/17 10/01/17 08:15 08:30 08:45 Temperature Pulse Rate 110 H 107 H 105 H Pulse Rate [ From Monitor] Respiratory 23 21 22 Rate Blood Pressure 103/47 101/53 110/55 O2 Sat by Pulse 100 100 99 Oximetry O2 Sat by Pulse Oximetry [ Anterior Bilateral Throughout] O2 Sat by Pulse Oximetry [ Assessment] 10/01/17 10/01/17 10/01/17 09:00 09:10 09:15 Temperature 98.6 F Pulse Rate 109 H 109 H 106 H Pulse Rate [ From Monitor] Respiratory 23 26 H Rate Blood Pressure 111/48 111/48 122/48 O2 Sat by Pulse 95 Oximetry O2 Sat by Pulse 99 Oximetry [ Anterior Bilateral Throughout] O2 Sat by Pulse Oximetry [ Assessment] 10/01/17 10/01/17 10/01/17 09:30 09:31 09:45 Temperature Pulse Rate 108 H 106 H 109 H Pulse Rate [ From Monitor] Respiratory 26 H 14 Rate Blood Pressure 106/52 106/52 106/49 O2 Sat by Pulse 100 88 Oximetry O2 Sat by Pulse Oximetry [ Anterior Bilateral Throughout] O2 Sat by Pulse Oximetry [ Assessment] 1110/01/17 10/01/17 09:49 10:00 10:01 Temperature Pulse Rate 109 H 109 H 109 H Pulse Rate [ From Monitor] Respiratory 25 H Rate Blood Pressure 106/49 92/46 92/46 O2 Sat by Pulse 99 Oximetry O2 Sat by Pulse Oximetry [ Anterior Bilateral Throughout] O2 Sat by Pulse Oximetry [ Assessment] 10/01/17 10/01/17 10/01/17 10:15 10:16 10:30 Temperature Pulse Rate 113 H 112 H 101 H Pulse Rate [ From Monitor] Respiratory 25 H Rate Blood Pressure 92/46 86/41 90/41 O2 Sat by Pulse 99 Oximetry O2 Sat by Pulse Oximetry [ Anterior Bilateral Throughout] O2 Sat by Pulse Oximetry [ Assessment] 10/01/17 10/01/17 10/01/17 10:31 10:45 11:01 Temperature Pulse Rate 110 H 111 H 110 H Pulse Rate [ From Monitor] Respiratory 27 H 27 H 27 H Rate Blood Pressure 83/44 98/46 97/41 O2 Sat by Pulse 95 100 96 Oximetry O2 Sat by Pulse Oximetry [ Anterior Bilateral Throughout] O2 Sat by Pulse Oximetry [ Assessment] 10/01/17 10/01/17 10/01/17 11:15 11:19 11:31 Temperature 98.6 F Pulse Rate 112 H 112 H 111 H Pulse Rate [ From Monitor] Respiratory 30 H 28 H 28 H Rate Blood Pressure 97/41 111/48 119/47 O2 Sat by Pulse 99 Oximetry O2 Sat by Pulse 99 Oximetry [ Anterior Bilateral Throughout] O2 Sat by Pulse Oximetry [ Assessment] 10/01/17 10/01/17 10/01/17 11:45 12:00 12:15 Temperature 98.9 F Pulse Rate 110 H 106 H 107 H Pulse Rate [ From Monitor] Respiratory 21 27 H 17 Rate Blood Pressure 119/47 95/47 101/35 O2 Sat by Pulse 99 99 99 Oximetry O2 Sat by Pulse Oximetry [ Anterior Bilateral Throughout] O2 Sat by Pulse Oximetry [ Assessment] 10/01/17 10/01/17 10/01/17 12:30 12:45 13:01 Temperature Pulse Rate 106 H 105 H 116 H Pulse Rate [ From Monitor] Respiratory 24 26 H 35 H Rate Blood Pressure 92/46 97/50 120/57 O2 Sat by Pulse 97 98 95 Oximetry O2 Sat by Pulse Oximetry [ Anterior Bilateral Throughout] O2 Sat by Pulse Oximetry [ Assessment] 10/01/17 10/01/17 10/01/17 13:15 13:30 13:45 Temperature Pulse Rate 111 H 107 H 112 H Pulse Rate [ From Monitor] Respiratory 34 H 31 H 20 Rate Blood Pressure 118/45 98/57 98/57 O2 Sat by Pulse 98 98 98 Oximetry O2 Sat by Pulse Oximetry [ Anterior Bilateral Throughout] O2 Sat by Pulse Oximetry [ Assessment] 10/01/17 10/01/17 10/01/17 13:50 14:00 14:15 Temperature Pulse Rate 106 H 106 H Pulse Rate [ 108 H From Monitor] Respiratory 27 H 25 H 24 Rate Blood Pressure 103/53 95/47 O2 Sat by Pulse 98 99 99 Oximetry O2 Sat by Pulse Oximetry [ Anterior Bilateral Throughout] O2 Sat by Pulse Oximetry [ Assessment] 10/01/17 10/01/17 10/01/17 14:30 14:45 15:00 Temperature Pulse Rate 103 H 103 H 104 H Pulse Rate [ From Monitor] Respiratory 29 H 29 H 31 H Rate Blood Pressure 93/48 100/47 110/44 O2 Sat by Pulse 98 97 97 Oximetry O2 Sat by Pulse Oximetry [ Anterior Bilateral Throughout] O2 Sat by Pulse Oximetry [ Assessment] 10/01/17 10/01/17 10/01/17 15:15 15:31 15:45 Temperature Pulse Rate 105 H 105 H 107 H Pulse Rate [ From Monitor] Respiratory 29 H 28 H 28 H Rate Blood Pressure 104/44 124/40 124/40 O2 Sat by Pulse 100 96 100 Oximetry O2 Sat by Pulse Oximetry [ Anterior Bilateral Throughout] O2 Sat by Pulse Oximetry [ Assessment] 10/01/17 10/01/17 16:00 16:01 Temperature Pulse Rate 103 H Pulse Rate [ 103 H From Monitor] Respiratory 29 H Rate Blood Pressure 95/55 O2 Sat by Pulse 96 96 Oximetry O2 Sat by Pulse Oximetry [ Anterior Bilateral Throughout] O2 Sat by Pulse Oximetry [ Assessment] General appearance: Present: mild distress - EENT Eyes: PERRL, EOM intact ENT: hearing intact, clear oral mucosa Ears: bilateral: normal - Neck Neck: supple, normal ROM - Respiratory Respiratory: bilateral: diminished, rhonchi - Breasts Breasts: deferred - Cardiovascular Rhythm: regular Heart Sounds: Present: S1 & S2. Absent: gallop, rub Extremities: pulses intact, No edema, normal color, Full ROM - Gastrointestinal General gastrointestinal: Present: soft, non-tender, non-distended, normal bowel sounds Rectal Exam: deferred - Genitourinary Female genitourinary: deferred - Integumentary Integumentary: clear, warm, dry - Musculoskeletal Musculoskeletal: 1, strength equal bilaterally - Neurologic Neurologic: moves all extremities - Psychiatric Psychiatric: appropriate mood/affect - Labs CBC & Chem 7: 10/01/17 05:45 10/01/17 05:45 Labs: Abnormal lab results 09/30/17 09/30/17 10/01/17 Range/Units 11:24 23:40 05:45 WBC (4.5-11.0) K/mm3 RBC (3.65-5.03) M/mm3 Hgb (10.1-14.3) gm/dl Hct (30.3-42.9) % RDW (13.2-15.2) % Seg Neuts % (Manual) (40.0-70.0) % Lymphocytes % (Manual) (13.4-35.0) % Monocytes % (Manual) (0.0-7.3) % Seg Neutrophils # Man (1.8-7.7) K/mm3 Lymphocytes # (Manual) (1.2-5.4) K/mm3 Monocytes # (Manual) (0.0-0.8) K/mm3 BUN 83 H (7-17) mg/dL Creatinine 2.2 H (0.7-1.2) mg/dL Glucose 140 H (65-100) mg/dL POC Glucose 197 H 121 H (70-105) Phosphorus 2.40 L D (2.5-4.5) mg/dL 10/01/17 10/01/17 Range/Units 05:45 05:48 WBC 23.0 H (4.5-11.0) K/mm3 RBC 2.60 L (3.65-5.03) M/mm3 Hgb 7.8 L (10.1-14.3) gm/dl Hct 23.8 L (30.3-42.9) % RDW 17.5 H (13.2-15.2) % Seg Neuts % (Manual) 81.0 H (40.0-70.0) % Lymphocytes % (Manual) 2.0 L (13.4-35.0) % Monocytes % (Manual) 10.0 H (0.0-7.3) % Seg Neutrophils # Man 18.6 H (1.8-7.7) K/mm3 Lymphocytes # (Manual) 0.5 L (1.2-5.4) K/mm3 Monocytes # (Manual) 2.3 H (0.0-0.8) K/mm3 BUN (7-17) mg/dL Creatinine (0.7-1.2) mg/dL Glucose (65-100) mg/dL POC Glucose 123 H (70-105) Phosphorus (2.5-4.5) mg/dL
[2017-10-01] MEDS ORDERED: TPN ADULT 1,800 ML IV SCH (20:00)
[2017-10-02] MEDS: NOVOLOG SUB-Q SCH ×4 (00:10→19:12)
[2017-10-02 06:15] LABS: Calcium 8.4 mg/dL (8.4-10.2); Chloride 99.9 mmol/L (98-107); Magnesium 1.8 mg/dL (1.7-2.3); Phosphorous 2.7 mg/dL (2.5-4.5); Potassium 4.2 mmol/L (3.6-5.0)
[2017-10-02] MEDS: LEVOPHED 8 MG in NACL 0.9% 250ML 242 ML IV SCH ×2 (07:00→19:14)
[2017-10-02] MEDS: PROAMATINE FEEDTUBE SCH ×3 (09:00→21:59)
[2017-10-02] MEDS: LEVEMIR SUB-Q SCH (09:01)
[2017-10-02] MEDS: PROTONIX FEEDTUBE SCH (09:01)
--- NOTE | 2017-10-02 09:11 | Progress Note ---
Assessment and Plan 1. ESRD: Continue HD on MWF. Isolated UF on TTS as tolerated. Monitor lytes. S/p switched from PD. Currently patient is on Tube feeding. 2. Anemia: S/p multiple units of PRBC. Patient continues to drop Hb level. Epogen on MWF. 3. Hypotension: Remain on Levophed. Increase guerda dose of Midodrine. 4. Volume overload: UF as tolerated. 5. Acute respiratory failure: On the vent. 6. Sepsis. 7. Gastric perforation and SBO: S/p ex lap, repair of enterotomy. Colonic perforation: S/p ex lap, transverse colon resection, colostomy creation. Abdominal Wound leak: S/p ex lap, abdominal wash out and abdominal wall closure. Subjective Date of service: 10/02/17 Principal diagnosis: respiratory failure, sepsis, shock rectal bleeding Interval history: Patient was seen and examined at the bedside. Remain on the vent. Objective - Vital Signs Vital signs: Vital Signs - 12hr 10/01/17 10/01/17 10/01/17 21:15 21:30 21:45 Temperature Pulse Rate 112 H 105 H 108 H Respiratory 21 26 H 23 Rate Blood Pressure 98/45 93/46 89/37 O2 Sat by Pulse 97 97 98 Oximetry O2 Sat by Pulse Oximetry [ Assessment] 10/01/17 10/01/17 10/01/17 22:00 22:15 22:30 Temperature Pulse Rate 106 H 107 H 110 H Respiratory 26 H 26 H 26 H Rate Blood Pressure 91/47 90/48 101/50 O2 Sat by Pulse 98 98 97 Oximetry O2 Sat by Pulse Oximetry [ Assessment] 10/01/17 10/01/17 10/01/17 22:45 23:00 23:15 Temperature Pulse Rate 109 H 110 H 109 H Respiratory 27 H 29 H 26 H Rate Blood Pressure 85/46 107/53 108/41 O2 Sat by Pulse 98 97 97 Oximetry O2 Sat by Pulse Oximetry [ Assessment] 10/01/17 10/01/17 10/01/17 23:30 23:31 23:45 Temperature 97.9 F Pulse Rate 108 H 106 H Respiratory 27 H 27 H Rate Blood Pressure 111/51 106/47 O2 Sat by Pulse 97 98 Oximetry O2 Sat by Pulse Oximetry [ Assessment] 10/02/17 10/02/17 10/02/17 00:00 00:06 00:08 Temperature 81 F L Pulse Rate 108 H 98 H Respiratory 27 H Rate Blood Pressure 100/59 91/49 O2 Sat by Pulse 98 99 Oximetry O2 Sat by Pulse 100 Oximetry [ Assessment] 10/02/17 10/02/17 10/02/17 00:15 00:31 00:45 Temperature Pulse Rate 106 H 104 H 107 H Respiratory 26 H 28 H 28 H Rate Blood Pressure 95/52 100/53 O2 Sat by Pulse 97 99 97 Oximetry O2 Sat by Pulse Oximetry [ Assessment] 10/02/17 10/02/17 10/02/17 01:00 01:15 01:31 Temperature Pulse Rate 107 H 105 H 107 H Respiratory 26 H 29 H 28 H Rate Blood Pressure 108/50 98/62 104/49 O2 Sat by Pulse 97 95 96 Oximetry O2 Sat by Pulse Oximetry [ Assessment] 10/02/17 10/02/17 10/02/17 01:45 02:01 02:15 Temperature Pulse Rate 112 H 111 H Respiratory 29 H 19 Rate Blood Pressure 117/75 121/76 121/76 O2 Sat by Pulse 96 93 91 Oximetry O2 Sat by Pulse Oximetry [ Assessment] 10/02/17 10/02/17 10/02/17 02:30 02:45 03:01 Temperature Pulse Rate 112 H 105 H 102 H Respiratory 25 H 32 H 31 H Rate Blood Pressure 103/70 103/42 104/35 O2 Sat by Pulse 95 95 Oximetry O2 Sat by Pulse Oximetry [ Assessment] 10/02/17 10/02/17 10/02/17 03:15 03:31 03:45 Temperature Pulse Rate 102 H 101 H 104 H Respiratory 30 H 31 H 33 H Rate Blood Pressure 94/47 90/50 95/45 O2 Sat by Pulse 95 93 95 Oximetry O2 Sat by Pulse Oximetry [ Assessment] 10/02/17 10/02/17 10/02/17 03:56 04:01 04:15 Temperature 99.4 F Pulse Rate 105 H 107 H Respiratory 35 H 26 H Rate Blood Pressure 92/59 97/62 O2 Sat by Pulse 96 93 Oximetry O2 Sat by Pulse Oximetry [ Assessment] 10/02/17 10/02/17 10/02/17 04:31 04:45 04:52 Temperature Pulse Rate 107 H 106 H 105 H Respiratory 24 30 H Rate Blood Pressure 92/59 105/31 85/45 O2 Sat by Pulse 96 95 Oximetry O2 Sat by Pulse Oximetry [ Assessment] 10/02/17 10/02/17 10/02/17 05:00 05:15 05:31 Temperature Pulse Rate 105 H 104 H 108 H Respiratory 29 H 30 H 32 H Rate Blood Pressure 89/48 95/51 103/45 O2 Sat by Pulse 96 96 97 Oximetry O2 Sat by Pulse Oximetry [ Assessment] 10/02/17 10/02/17 10/02/17 05:45 06:00 06:15 Temperature Pulse Rate 105 H 107 H 107 H Respiratory 29 H 28 H 27 H Rate Blood Pressure 84/39 99/42 94/43 O2 Sat by Pulse 88 97 98 Oximetry O2 Sat by Pulse Oximetry [ Assessment] 10/02/17 10/02/17 10/02/17 06:30 06:45 07:01 Temperature Pulse Rate 105 H 104 H 112 H Respiratory 27 H 27 H 34 H Rate Blood Pressure 80/40 85/43 85/43 O2 Sat by Pulse 98 99 99 Oximetry O2 Sat by Pulse Oximetry [ Assessment] 10/02/17 10/02/17 10/02/17 07:15 07:30 07:45 Temperature Pulse Rate 106 H 108 H 104 H Respiratory 26 H 24 24 Rate Blood Pressure 84/46 81/42 91/39 O2 Sat by Pulse 99 98 98 Oximetry O2 Sat by Pulse Oximetry [ Assessment] 10/02/17 08:00 Temperature 98.6 F Pulse Rate 102 H Respiratory 24 Rate Blood Pressure 82/45 O2 Sat by Pulse 99 Oximetry O2 Sat by Pulse Oximetry [ Assessment] - General Appearance General appearance: well-developed, appears stated age, other (Right IJ hemodialysis catheter, on vent FiO2 25%) EENT: ATNC, PERRL Neck: supple Respiratory: Present: Clear to Ascultation Cardiology: regular, S1S2, no murmurs Gastrointestinal: normoactive bowel sounds, other (ostomy, G-tube noted) Integumentary: no rash Neurologic: other (opens eyes, grimaces) Musculoskeletal: other (1 to 2+ edema) - Lab 10/01/17 05:45 10/02/17 05:00 Most recent lab results ABG pH 7.323 pH Units (7.350-7.450) L 09/09/17 Unknown ABG pCO2 41.1 mm Hg 09/09/17 Unknown ABG pO2 94.1 mm Hg (80.0-90.0) H 09/09/17 Unknown ABG HCO3 20.9 mmol/L (20.0-26.0) 09/09/17 Unknown ABG O2 Saturation 97.2 % (95.0-99.0) 09/09/17 Unknown Calcium 8.4 mg/dL (8.4-10.2) 10/02/17 05:00 Phosphorus 2.70 mg/dL (2.5-4.5) 10/02/17 05:00 Magnesium 1.80 mg/dL (1.7-2.3) 10/02/17 05:00
[2017-10-02] MEDS ORDERED: PROAMATINE PO ONE (10:00)
[2017-10-02 10:21] LABS: Hematocrit 24.1 % (30.3-42.9); Mean Corpuscular HGB Conc 33 % (30-34); Mean Corpuscular Hemoglobin 30 pg (28-32); Mean Corpuscular Volume 90 fl (79-97); Platelet Count 246 K/mm3 (140-440); Red Blood Count 2.67 M/mm3 (3.65-5.03); Red Cell Distribution Width 17.1 % (13.2-15.2); White Blood Count 18.1 K/mm3 (4.5-11.0)
--- NOTE | 2017-10-02 10:50 | Progress Note ---
Assessment and Plan Assessment: 1) Sepsis with septic shock: noted high fever on 10/01, leukocytosis better, on minimal pressors amount. Procal = 7-->3. New fever etiology-Candidemia 2) Initial Bowel obstruction / suspect ?gastric perforation ? peritonitis -S/P Exlap, G-tube placement, EGD, abdominal washout and removal of PD -OR findings - bowel obstruction due to entanglement of PD cath, abscess cavity in LUQ and ? suspect perforation of unclear location 3) Intiial CA-UTI: chronic ivan exchanged every 4 weeks and ureteral stents in place which are exchanged every 6 months 4) Paraplegia 5) ESRD on PD - now on HD 6) Recent pancreatitis 7) Penicillin allergy-has taken keflex w/o problems 8) Presumed Surgical wound infection / dehiscence ? 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 11) Anemia- severe- Hg 6.7 today 12) Colonic perforation -S/P exlap, transverse colectomy, right sided colostomy and wash out on 09/15 -?presumed leak -surgical wound + Kristine and MDR Acinetobacter 13) Small bowell enterotomy leak / peritonitis s/p wash out / biologic mesh placement / closure of small bowel enterotomy on 09/24 14) Candidemia on 09/30 Plan: -remove all central catheters, attempt line holiday -start micafungin -repeat blood cultures -monitor fever -contact isolation Thank you Dr Chen for your consultation, will follow up with you. Ramya Lang MD Infectious Diseases Specialist [facility] ([facility] M [phone] O [phone] Subjective Date of service: 10/02/17 Principal diagnosis: respiratory failure, sepsis, shock rectal bleeding Interval history: Pt remains on the vent still levophed at 1 mcg on TPN, fentanyl, + fever at 100.1 Microbiology: Blood cultures: 08/08 neg 08/12 neg 08/16 neg 08/20 neg 10/ neg 09/06 neg 09/12 neg 09/30 yeast Urine cultures: 08/08 10-100K skin grace Respiratory cultures: 08/30 tracheal asp MRSA Wound cultures: 08/26 Staph aureus and Kristine 08/28 MRSA, E faecalis, Kristine albicans 09/20 MDR Acinetobacter and Kristine albicans Stool cultures: Other: 08/08 peritoneal fluid + [employer]ELOP[employer]IST/Diphteroids Current Antimicrobials: none Previous Antimicrobials: 08/10 levaquin 08/16 vancomycin 08/13 meropenem 08/16 fluconazole Micafungin 08/29 meropenem 08/29 zyvox 09/03 fluconazole 09/03 dapto 09/10 meropenem 09/09-09/22 micafungin 09/11-09/21meropenem 09/25 fluconazole 09/24 Objective - Exam Narrative Exam: General appearance: on the vent via trach Eyes: anicteric sclerae, moist conjunctivae; no lid-lag; PERRLA HENT: Atraumatic; NGT Neck: Trach in place Lungs: moreno rhonchi CV: tachy Abdomen: soft, midline surgical wound + ostomy. MERVIN drains with minimal output, LLQ drain slightly seropurulent, LUQ drain serosanguenous. G tube to OSD with yellow output per surgical eval. Extremities: + peripheral edema + leg ulcer no drainage Skin: right groin old fem line wound no erythema, no drainage Psych: sedated. Neuro: sedated Lines: right IJ vas cath / Right IJ Nair 08/16 - Constitutional Vitals: Vital Signs Temp Pulse Resp BP Pulse Ox 98.6 F 111 H 22 87/40 99 10/02/17 08:00 10/02/17 09:36 10/02/17 09:36 10/02/17 09:36 10/02/17 08:00 Temperature -Last 24 Hours Temperature 98.6 F Temperature 99.4 F Temperature 81 F Temperature 97.9 F Temperature 100.1 F Temperature 98.8 F Temperature 98.9 F Temperature 98.6 F - Labs CBC & Chem 7: 10/02/17 10:05 10/02/17 05:00 Labs: Abnormal lab results 10/01/17 10/01/17 10/02/17 Range/Units 12:29 17:46 05:00 WBC (4.5-11.0) K/mm3 RBC (3.65-5.03) M/mm3 Hgb (10.1-14.3) gm/dl Hct (30.3-42.9) % RDW (13.2-15.2) % BUN 108 H (7-17) mg/dL Creatinine 2.5 H (0.7-1.2) mg/dL Glucose 113 H (65-100) mg/dL POC Glucose 191 H 56 L (70-105) 10/02/17 10/02/17 Range/Units 05:27 10:05 WBC 18.1 H (4.5-11.0) K/mm3 RBC 2.67 L (3.65-5.03) M/mm3 Hgb 8.0 L (10.1-14.3) gm/dl Hct 24.1 L (30.3-42.9) % RDW 17.1 H (13.2-15.2) % BUN (7-17) mg/dL Creatinine (0.7-1.2) mg/dL Glucose (65-100) mg/dL POC Glucose 120 H (70-105)
--- NOTE | 2017-10-02 11:08 | Progress Note ---
Assessment and Plan 62 y/o female originally admitted with hypotension, now back to ICU secondary to worsening hypotension, concern for sepsis, with acute respiratory failure post-op from ex-lap for abdominal distention and possible ileus, now back from OR after worsening respiratory failure, requiring re-intubation and wash out of abdomen 1. Wean pressors for MAPs >60 2. HD now down to MWF but BUN increased today after HD on yesterday. Not sure why. 3. Daily PSV trials with hopes of doing 24 hour PSV trial. Rest on rate while on HD 4. Steroids have been discontinued, please attempt to not restart these as surgery feels it is impeding the healing of the abdominal wound 5. Started tube feeds 09/30 at 10, but already having residuals, will continue to monitor. 6. Once medical issues have concrete plan, should be ready for transfer to [facility] 7. Now with Yeast in blood, ID still following. Discussed on rounds and will start Micafungin. Follow up ID recs for today. Overall prognosis is guarded to poor CCT 31 Subjective Date of service: 10/02/17 Principal diagnosis: respiratory failure, sepsis, shock rectal bleeding Interval history: Found to have yeast in blood now. Still on levophed at 1 breana. Midodrine increased to 10 TID Objective Vital Signs - 12hr 10/01/17 10/01/17 10/01/17 23:00 23:15 23:30 Temperature Pulse Rate 110 H 109 H 108 H Respiratory 29 H 26 H 27 H Rate Blood Pressure 107/53 108/41 111/51 O2 Sat by Pulse 97 97 97 Oximetry O2 Sat by Pulse Oximetry [ Assessment] 10/01/17 10/01/17 10/02/17 23:31 23:45 00:00 Temperature 97.9 F 81 F L Pulse Rate 106 H 108 H Respiratory 27 H 27 H Rate Blood Pressure 106/47 100/59 O2 Sat by Pulse 98 98 Oximetry O2 Sat by Pulse Oximetry [ Assessment] 10/02/17 10/02/17 10/02/17 00:06 00:08 00:15 Temperature Pulse Rate 98 H 106 H Respiratory 26 H Rate Blood Pressure 91/49 95/52 O2 Sat by Pulse 99 97 Oximetry O2 Sat by Pulse 100 Oximetry [ Assessment] 10/02/17 10/02/17 10/02/17 00:31 00:45 01:00 Temperature Pulse Rate 104 H 107 H 107 H Respiratory 28 H 28 H 26 H Rate Blood Pressure 100/53 108/50 O2 Sat by Pulse 99 97 97 Oximetry O2 Sat by Pulse Oximetry [ Assessment] 10/02/17 10/02/17 10/02/17 01:15 01:31 01:45 Temperature Pulse Rate 105 H 107 H Respiratory 29 H 28 H Rate Blood Pressure 98/62 104/49 117/75 O2 Sat by Pulse 95 96 96 Oximetry O2 Sat by Pulse Oximetry [ Assessment] 10/02/17 10/02/17 10/02/17 02:01 02:15 02:30 Temperature Pulse Rate 112 H 111 H 112 H Respiratory 29 H 19 25 H Rate Blood Pressure 121/76 121/76 103/70 O2 Sat by Pulse 93 91 95 Oximetry O2 Sat by Pulse Oximetry [ Assessment] 10/02/17 10/02/17 10/02/17 02:45 03:01 03:15 Temperature Pulse Rate 105 H 102 H 102 H Respiratory 32 H 31 H 30 H Rate Blood Pressure 103/42 104/35 94/47 O2 Sat by Pulse 95 95 Oximetry O2 Sat by Pulse Oximetry [ Assessment] 10/02/17 10/02/17 10/02/17 03:31 03:45 03:56 Temperature 99.4 F Pulse Rate 101 H 104 H Respiratory 31 H 33 H Rate Blood Pressure 90/50 95/45 O2 Sat by Pulse 93 95 Oximetry O2 Sat by Pulse Oximetry [ Assessment] 10/02/17 10/02/17 10/02/17 04:01 04:15 04:31 Temperature Pulse Rate 105 H 107 H 107 H Respiratory 35 H 26 H 24 Rate Blood Pressure 92/59 97/62 92/59 O2 Sat by Pulse 96 93 96 Oximetry O2 Sat by Pulse Oximetry [ Assessment] 10/02/17 10/02/17 10/02/17 04:45 04:52 05:00 Temperature Pulse Rate 106 H 105 H 105 H Respiratory 30 H 29 H Rate Blood Pressure 105/31 85/45 89/48 O2 Sat by Pulse 95 96 Oximetry O2 Sat by Pulse Oximetry [ Assessment] 10/02/17 10/02/17 10/02/17 05:15 05:31 05:45 Temperature Pulse Rate 104 H 108 H 105 H Respiratory 30 H 32 H 29 H Rate Blood Pressure 95/51 103/45 84/39 O2 Sat by Pulse 96 97 88 Oximetry O2 Sat by Pulse Oximetry [ Assessment] 10/02/17 10/02/17 10/02/17 06:00 06:15 06:30 Temperature Pulse Rate 107 H 107 H 105 H Respiratory 28 H 27 H 27 H Rate Blood Pressure 99/42 94/43 80/40 O2 Sat by Pulse 97 98 98 Oximetry O2 Sat by Pulse Oximetry [ Assessment] 10/02/17 10/02/17 10/02/17 06:45 07:01 07:15 Temperature Pulse Rate 104 H 112 H 106 H Respiratory 27 H 34 H 26 H Rate Blood Pressure 85/43 85/43 84/46 O2 Sat by Pulse 99 99 99 Oximetry O2 Sat by Pulse Oximetry [ Assessment] 10/02/17 10/02/17 10/02/17 07:30 07:45 08:00 Temperature 98.6 F Pulse Rate 108 H 104 H 102 H Respiratory 24 24 24 Rate Blood Pressure 81/42 91/39 82/45 O2 Sat by Pulse 98 98 99 Oximetry O2 Sat by Pulse Oximetry [ Assessment] 10/02/17 09:36 Temperature Pulse Rate 111 H Respiratory 22 Rate Blood Pressure 87/40 O2 Sat by Pulse Oximetry O2 Sat by Pulse Oximetry [ Assessment] Constitutional: no acute distress, lethargic Eyes: non-icteric ENT: oropharynx dry Neck: supple, other (trach in position, no bleeding) Effort: normal Ascultation: Bilateral: clear ( ), diminished breath sounds Cardiovascular: regular rate and rhythm (no mrg) Gastrointestinal: absent bowel sounds, non-tender, other (abdominal incision with dressing , obese. Drain in place, no bleeding; ostomy with brown stool) Integumentary: normal Extremities: no cyanosis, pink and warm, edema Neurologic: non-focal exam, pupils equal and round Psychiatric: mood appropriate, affect normal CBC and BMP: 10/02/17 10:05 10/02/17 05:00 ABG, PT/INR, D-dimer: ABG POC ABG pH 7.347 (7.35-7.45) L 09/13/17 11:36 ABG pH 7.323 pH Units (7.350-7.450) L 09/09/17 Unknown POC ABG pCO2 34.3 (35-45) L 09/13/17 11:36 ABG pCO2 41.1 mm Hg 09/09/17 Unknown POC ABG pO2 134 (80-105) H 09/13/17 11:36 ABG pO2 94.1 mm Hg (80.0-90.0) H 09/09/17 Unknown POC ABG HCO3 18.8 09/13/17 11:36 POC ABG Total CO2 20 09/13/17 11:36 POC ABG O2 Sat 99 09/13/17 11:36 ABG O2 Saturation 97.2 % (95.0-99.0) 09/09/17 Unknown PT/INR, D-dimer PT 14.9 Sec. (12.2-14.9) 09/21/17 07:00 INR 1.11 (0.87-1.13) 09/21/17 07:00 Abnormal lab findings: Abnormal Labs 08/08/17 08/08/17 08/09/17 21:23 21:31 11:19 WBC 15.7 H RBC 2.93 L Hgb 8.7 L Hct 26.8 L MCV MCH MCHC RDW 19.2 H Plt Count Lymph % (Auto) Mcmullen % (Auto) Mcmullen # Seg Neutrophils % Seg Neuts % (Manual) Lymphocytes % (Manual) Monocytes % (Manual) Nucleated RBC % Seg Neutrophils # Seg Neutrophils # Man Lymphocytes # (Manual) Monocytes # (Manual) Eosinophils # (Manual) Basophils # (Manual) PT INR POC ABG pH 7.490 H ABG pH POC ABG pCO2 POC ABG pO2 122 H ABG pO2 ABG O2 Saturation ABG Base Excess ABG Hemoglobin Oxyhemoglobin Sodium Potassium Chloride Carbon Dioxide BUN Creatinine Glucose POC Glucose Calcium Phosphorus Magnesium Iron TIBC Ferritin Total Bilirubin AST ALT Alkaline Phosphatase Total Creatine Kinase Troponin T 0.133 H* C-Reactive Protein Total Protein Albumin Triglycerides HDL Cholesterol 26 L Miscellaneous Test Crossmatch 08/09/17 08/10/17 08/10/17 13:25 04:45 04:45 WBC 15.5 H RBC 2.97 L Hgb 8.9 L Hct 27.0 L MCV MCH MCHC RDW 19.2 H Plt Count Lymph % (Auto) Mcmullen % (Auto) Mcmullen # Seg Neutrophils % Seg Neuts % (Manual) 73.0 H Lymphocytes % (Manual) 7.0 L Monocytes % (Manual) 14.0 H Nucleated RBC % Seg Neutrophils # Seg Neutrophils # Man 11.3 H Lymphocytes # (Manual) 1.1 L Monocytes # (Manual) 2.2 H Eosinophils # (Manual) Basophils # (Manual) 0.2 H PT INR POC ABG pH ABG pH POC ABG pCO2 POC ABG pO2 ABG pO2 ABG O2 Saturation ABG Base Excess ABG Hemoglobin Oxyhemoglobin Sodium Potassium 3.3 L Chloride 97.3 L Carbon Dioxide 21 L BUN 23 H Creatinine 6.5 H Glucose POC Glucose Calcium 7.3 L Phosphorus Magnesium Iron TIBC Ferritin Total Bilirubin AST ALT Alkaline Phosphatase 138 H Total Creatine Kinase Troponin T 0.132 H* C-Reactive Protein Total Protein 4.8 L Albumin 1.4 L Triglycerides HDL Cholesterol Miscellaneous Test Crossmatch 08/11/17 08/11/17 08/12/17 04:00 04:00 05:50 WBC 19.3 H RBC 3.10 L Hgb 9.5 L Hct 28.2 L MCV MCH MCHC RDW 19.2 H Plt Count 463 H Lymph % (Auto) 7.5 L Mcmullen % (Auto) 14.6 H Mcmullen # 2.8 H Seg Neutrophils % 77.0 H Seg Neuts % (Manual) Lymphocytes % (Manual) Monocytes % (Manual) Nucleated RBC % Seg Neutrophils # 14.8 H Seg Neutrophils # Man Lymphocytes # (Manual) Monocytes # (Manual) Eosinophils # (Manual) Basophils # (Manual) PT INR POC ABG pH ABG pH POC ABG pCO2 POC ABG pO2 ABG pO2 ABG O2 Saturation ABG Base Excess ABG Hemoglobin Oxyhemoglobin Sodium 136 L 136 L Potassium 3.3 L Chloride 96.3 L 96.6 L Carbon Dioxide BUN 26 H 26 H Creatinine 6.4 H 6.2 H Glucose 135 H 133 H POC Glucose Calcium 8.2 L Phosphorus Magnesium 1.30 L Iron TIBC Ferritin Total Bilirubin AST ALT Alkaline Phosphatase 139 H Total Creatine Kinase Troponin T C-Reactive Protein Total Protein 5.5 L Albumin 1.7 L Triglycerides HDL Cholesterol Miscellaneous Test Crossmatch 08/12/17 08/12/17 08/12/17 05:50 05:50 05:50 WBC 20.1 H RBC 3.06 L Hgb 9.3 L Hct 27.9 L MCV MCH MCHC RDW 18.4 H Plt Count 471 H Lymph % (Auto) Mcmullen % (Auto) Mcmullen # Seg Neutrophils % Seg Neuts % (Manual) 85.0 H Lymphocytes % (Manual) 8.0 L Monocytes % (Manual) Nucleated RBC % Seg Neutrophils # Seg Neutrophils # Man 17.1 H Lymphocytes # (Manual) Monocytes # (Manual) 1.0 H Eosinophils # (Manual) Basophils # (Manual) PT 15.2 H INR 1.14 H POC ABG pH ABG pH POC ABG pCO2 POC ABG pO2 ABG pO2 ABG O2 Saturation ABG Base Excess ABG Hemoglobin Oxyhemoglobin Sodium Potassium Chloride Carbon Dioxide BUN Creatinine Glucose POC Glucose Calcium Phosphorus Magnesium Iron TIBC Ferritin Total Bilirubin AST ALT Alkaline Phosphatase Total Creatine Kinase Troponin T C-Reactive Protein 28.90 H Total Protein Albumin Triglycerides HDL Cholesterol Miscellaneous Test Crossmatch 08/12/17 08/13/17 08/13/17 16:23 06:14 06:14 WBC 21.8 H RBC 3.11 L Hgb 9.4 L Hct 28.2 L MCV MCH MCHC RDW 18.2 H Plt Count 492 H Lymph % (Auto) Mcmullen % (Auto) Mcmullen # Seg Neutrophils % Seg Neuts % (Manual) 73.0 H Lymphocytes % (Manual) 2.0 L Monocytes % (Manual) 15 H Nucleated RBC % Seg Neutrophils # Seg Neutrophils # Man 15.9 H Lymphocytes # (Manual) 0.4 L Monocytes # (Manual) 2.4 H Eosinophils # (Manual) Basophils # (Manual) PT INR POC ABG pH ABG pH POC ABG pCO2 POC ABG pO2 ABG pO2 ABG O2 Saturation ABG Base Excess ABG Hemoglobin Oxyhemoglobin Sodium Potassium Chloride 96.2 L Carbon Dioxide BUN 28 H Creatinine 5.6 H Glucose 114 H POC Glucose Calcium Phosphorus Magnesium Iron TIBC Ferritin Total Bilirubin AST ALT Alkaline Phosphatase Total Creatine Kinase Troponin T C-Reactive Protein 26.10 H Total Protein Albumin Triglycerides HDL Cholesterol Miscellaneous Test Crossmatch 08/13/17 08/14/17 08/14/17 16:39 04:00 04:00 WBC 22.1 H RBC 3.25 L Hgb 9.9 L Hct 29.5 L MCV MCH MCHC RDW 17.9 H Plt Count 525 H Lymph % (Auto) Mcmullen % (Auto) Mcmullen # Seg Neutrophils % Seg Neuts % (Manual) 74.0 H Lymphocytes % (Manual) 8.0 L Monocytes % (Manual) 12.0 H Nucleated RBC % Seg Neutrophils # Seg Neutrophils # Man 16.4 H Lymphocytes # (Manual) Monocytes # (Manual) 2.7 H Eosinophils # (Manual) Basophils # (Manual) PT INR POC ABG pH ABG pH POC ABG pCO2 POC ABG pO2 ABG pO2 ABG O2 Saturation ABG Base Excess ABG Hemoglobin Oxyhemoglobin Sodium 134 L Potassium 3.3 L Chloride 93.3 L Carbon Dioxide BUN 27 H Creatinine 6.0 H Glucose 152 H POC Glucose 151 H Calcium Phosphorus Magnesium Iron TIBC Ferritin Total Bilirubin AST ALT Alkaline Phosphatase Total Creatine Kinase Troponin T C-Reactive Protein Total Protein Albumin Triglycerides HDL Cholesterol Miscellaneous Test Crossmatch 08/15/17 08/16/17 08/16/17 09:10 09:50 09:50 WBC 31.1 H RBC 3.21 L Hgb 9.6 L Hct 29.3 L MCV MCH MCHC RDW 18.1 H Plt Count 642 H Lymph % (Auto) Mcmullen % (Auto) Mcmullen # Seg Neutrophils % Seg Neuts % (Manual) 74.0 H Lymphocytes % (Manual) 4.0 L Monocytes % (Manual) 9.0 H Nucleated RBC % Seg Neutrophils # Seg Neutrophils # Man 23.0 H Lymphocytes # (Manual) Monocytes # (Manual) 2.8 H Eosinophils # (Manual) Basophils # (Manual) PT INR POC ABG pH ABG pH POC ABG pCO2 POC ABG pO2 ABG pO2 ABG O2 Saturation ABG Base Excess ABG Hemoglobin Oxyhemoglobin Sodium 136 L 136 L Potassium 3.5 L Chloride 97.6 L 94.9 L Carbon Dioxide BUN 27 H 28 H Creatinine 5.6 H 5.5 H Glucose 117 H 103 H POC Glucose Calcium Phosphorus Magnesium Iron TIBC Ferritin Total Bilirubin AST ALT Alkaline Phosphatase 137 H Total Creatine Kinase Troponin T C-Reactive Protein Total Protein 5.4 L Albumin 1.5 L Triglycerides HDL Cholesterol Miscellaneous Test Crossmatch 08/16/17 08/17/17 08/17/17 09:50 05:00 06:26 WBC RBC Hgb Hct MCV MCH MCHC RDW Plt Count Lymph % (Auto) Mcmullen % (Auto) Mcmullen # Seg Neutrophils % Seg Neuts % (Manual) Lymphocytes % (Manual) Monocytes % (Manual) Nucleated RBC % Seg Neutrophils # Seg Neutrophils # Man Lymphocytes # (Manual) Monocytes # (Manual) Eosinophils # (Manual) Basophils # (Manual) PT INR POC ABG pH ABG pH POC ABG pCO2 POC ABG pO2 ABG pO2 ABG O2 Saturation ABG Base Excess ABG Hemoglobin Oxyhemoglobin Sodium 134 L Potassium 3.0 L Chloride 97.8 L Carbon Dioxide BUN 30 H Creatinine 5.3 H Glucose 147 H POC Glucose 165 H Calcium 7.5 L Phosphorus Magnesium Iron TIBC Ferritin Total Bilirubin AST ALT Alkaline Phosphatase Total Creatine Kinase Troponin T C-Reactive Protein 32.30 H Total Protein Albumin Triglycerides HDL Cholesterol Miscellaneous Test Crossmatch 08/17/17 08/17/17 08/17/17 10:56 11:20 11:20 WBC 39.1 H RBC 3.10 L Hgb 9.2 L Hct 28.6 L MCV MCH MCHC RDW 18.3 H Plt Count 580 H Lymph % (Auto) Mcmullen % (Auto) Mcmullen # Seg Neutrophils % Seg Neuts % (Manual) 89.5 H Lymphocytes % (Manual) 3.5 L Monocytes % (Manual) Nucleated RBC % Seg Neutrophils # Seg Neutrophils # Man 35.0 H Lymphocytes # (Manual) Monocytes # (Manual) 2.5 H Eosinophils # (Manual) Basophils # (Manual) 0.2 H PT INR POC ABG pH 7.464 H ABG pH POC ABG pCO2 34.1 L POC ABG pO2 75 L ABG pO2 ABG O2 Saturation ABG Base Excess ABG Hemoglobin Oxyhemoglobin Sodium Potassium Chloride Carbon Dioxide BUN Creatinine Glucose POC Glucose Calcium Phosphorus Magnesium Iron TIBC Ferritin Total Bilirubin AST ALT Alkaline Phosphatase Total Creatine Kinase Troponin T C-Reactive Protein Total Protein Albumin Triglycerides HDL Cholesterol Miscellaneous Test Flexitest 1 H Crossmatch 08/17/17 08/17/17 08/17/17 11:20 16:57 20:20 WBC 34.4 H RBC 2.81 L Hgb 8.4 L Hct 26.0 L MCV MCH MCHC RDW 17.8 H Plt Count 455 H Lymph % (Auto) Mcmullen % (Auto) Mcmullen # Seg Neutrophils % Seg Neuts % (Manual) Lymphocytes % (Manual) 3.5 L Monocytes % (Manual) Nucleated RBC % 5.0 H Seg Neutrophils # Seg Neutrophils # Man 16.5 H Lymphocytes # (Manual) Monocytes # (Manual) 1.0 H Eosinophils # (Manual) Basophils # (Manual) PT 16.0 H INR 1.29 H POC ABG pH ABG pH POC ABG pCO2 POC ABG pO2 ABG pO2 ABG O2 Saturation ABG Base Excess ABG Hemoglobin Oxyhemoglobin Sodium 135 L Potassium 2.9 L* Chloride Carbon Dioxide 20 L BUN 32 H Creatinine 5.4 H Glucose 129 H POC Glucose Calcium 7.5 L Phosphorus Magnesium 1.50 L Iron TIBC Ferritin Total Bilirubin AST 85 H ALT Alkaline Phosphatase Total Creatine Kinase Troponin T C-Reactive Protein Total Protein 4.0 L D Albumin 1.6 L Triglycerides HDL Cholesterol Miscellaneous Test Crossmatch 08/17/17 08/17/17 08/18/17 20:54 23:47 04:26 WBC RBC Hgb Hct MCV MCH MCHC RDW Plt Count Lymph % (Auto) Mcmullen % (Auto) Mcmullen # Seg Neutrophils % Seg Neuts % (Manual) Lymphocytes % (Manual) Monocytes % (Manual) Nucleated RBC % Seg Neutrophils # Seg Neutrophils # Man Lymphocytes # (Manual) Monocytes # (Manual) Eosinophils # (Manual) Basophils # (Manual) PT INR POC ABG pH 7.557 H ABG pH POC ABG pCO2 23.1 L 29.0 L POC ABG pO2 187 H 148 H ABG pO2 ABG O2 Saturation ABG Base Excess ABG Hemoglobin Oxyhemoglobin Sodium Potassium Chloride Carbon Dioxide BUN Creatinine Glucose POC Glucose 188 H Calcium Phosphorus Magnesium Iron TIBC Ferritin Total Bilirubin AST ALT Alkaline Phosphatase Total Creatine Kinase Troponin T C-Reactive Protein Total Protein Albumin Triglycerides HDL Cholesterol Miscellaneous Test Crossmatch 08/18/17 08/18/17 08/18/17 05:51 11:44 17:07 WBC RBC Hgb Hct MCV MCH MCHC RDW Plt Count Lymph % (Auto) Mcmullen % (Auto) Mcmullen # Seg Neutrophils % Seg Neuts % (Manual) Lymphocytes % (Manual) Monocytes % (Manual) Nucleated RBC % Seg Neutrophils # Seg Neutrophils # Man Lymphocytes # (Manual) Monocytes # (Manual) Eosinophils # (Manual) Basophils # (Manual) PT INR POC ABG pH ABG pH POC ABG pCO2 POC ABG pO2 ABG pO2 ABG O2 Saturation ABG Base Excess ABG Hemoglobin Oxyhemoglobin Sodium Potassium Chloride Carbon Dioxide BUN Creatinine Glucose POC Glucose 202 H 195 H 182 H Calcium Phosphorus Magnesium Iron TIBC Ferritin Total Bilirubin AST ALT Alkaline Phosphatase Total Creatine Kinase Troponin T C-Reactive Protein Total Protein Albumin Triglycerides HDL Cholesterol Miscellaneous Test Crossmatch 08/18/17 08/18/17 08/18/17 23:45 Unknown Unknown WBC 39.0 H RBC 2.84 L Hgb 8.4 L Hct 26.5 L MCV MCH MCHC RDW 18.0 H Plt Count 476 H Lymph % (Auto) Mcmullen % (Auto) Mcmullen # Seg Neutrophils % Seg Neuts % (Manual) Lymphocytes % (Manual) 7.0 L Monocytes % (Manual) 10.0 H Nucleated RBC % 3.0 H Seg Neutrophils # Seg Neutrophils # Man 15.6 H Lymphocytes # (Manual) Monocytes # (Manual) 3.9 H Eosinophils # (Manual) Basophils # (Manual) PT INR POC ABG pH ABG pH POC ABG pCO2 POC ABG pO2 ABG pO2 ABG O2 Saturation ABG Base Excess ABG Hemoglobin Oxyhemoglobin Sodium Potassium Chloride Carbon Dioxide 19 L BUN 34 H Creatinine 5.6 H Glucose 201 H POC Glucose 163 H Calcium 7.8 L Phosphorus 1.90 L D Magnesium 1.60 L Iron TIBC Ferritin Total Bilirubin AST ALT Alkaline Phosphatase Total Creatine Kinase Troponin T C-Reactive Protein Total Protein Albumin Triglycerides HDL Cholesterol Miscellaneous Test Crossmatch 08/19/17 08/19/17 08/19/17 04:18 05:00 05:00 WBC 40.0 H RBC 2.46 L Hgb 7.3 L Hct 22.6 L MCV MCH MCHC RDW 18.1 H Plt Count Lymph % (Auto) Mcmullen % (Auto) Mcmullen # Seg Neutrophils % Seg Neuts % (Manual) Lymphocytes % (Manual) 8.0 L Monocytes % (Manual) Nucleated RBC % 2.0 H Seg Neutrophils # Seg Neutrophils # Man 16.4 H Lymphocytes # (Manual) Monocytes # (Manual) 1.2 H Eosinophils # (Manual) 1.2 H Basophils # (Manual) PT INR POC ABG pH 7.463 H ABG pH POC ABG pCO2 29.7 L POC ABG pO2 134 H ABG pO2 ABG O2 Saturation ABG Base Excess ABG Hemoglobin Oxyhemoglobin Sodium Potassium 5.1 H D Chloride Carbon Dioxide 20 L BUN 40 H Creatinine 5.3 H Glucose 128 H POC Glucose Calcium 7.8 L Phosphorus 1.90 L Magnesium Iron TIBC Ferritin Total Bilirubin AST ALT Alkaline Phosphatase Total Creatine Kinase Troponin T C-Reactive Protein Total Protein Albumin Triglycerides HDL Cholesterol Miscellaneous Test Crossmatch 08/19/17 08/19/17 08/19/17 05:19 07:37 09:52 WBC 45.0 H* RBC 2.50 L Hgb 7.5 L Hct 24.5 L MCV 98 H MCH MCHC RDW 18.4 H Plt Count Lymph % (Auto) Mcmullen % (Auto) Mcmullen # Seg Neutrophils % Seg Neuts % (Manual) 81.5 H Lymphocytes % (Manual) 4.0 L Monocytes % (Manual) Nucleated RBC % 1.0 H Seg Neutrophils # Seg Neutrophils # Man 36.7 H Lymphocytes # (Manual) Monocytes # (Manual) Eosinophils # (Manual) Basophils # (Manual) PT INR POC ABG pH ABG pH POC ABG pCO2 POC ABG pO2 ABG pO2 ABG O2 Saturation ABG Base Excess ABG Hemoglobin Oxyhemoglobin Sodium Potassium Chloride Carbon Dioxide BUN Creatinine Glucose POC Glucose 142 H Calcium Phosphorus Magnesium Iron TIBC Ferritin Total Bilirubin AST ALT Alkaline Phosphatase Total Creatine Kinase Troponin T C-Reactive Protein 34.20 H Total Protein Albumin Triglycerides HDL Cholesterol Miscellaneous Test Crossmatch 08/19/17 08/19/17 08/20/17 11:16 18:12 00:35 WBC RBC Hgb Hct MCV MCH MCHC RDW Plt Count Lymph % (Auto) Mcmullen % (Auto) Mcmullen # Seg Neutrophils % Seg Neuts % (Manual) Lymphocytes % (Manual) Monocytes % (Manual) Nucleated RBC % Seg Neutrophils # Seg Neutrophils # Man Lymphocytes # (Manual) Monocytes # (Manual) Eosinophils # (Manual) Basophils # (Manual) PT INR POC ABG pH ABG pH POC ABG pCO2 POC ABG pO2 ABG pO2 ABG O2 Saturation ABG Base Excess ABG Hemoglobin Oxyhemoglobin Sodium Potassium Chloride Carbon Dioxide BUN Creatinine Glucose POC Glucose 143 H 137 H 164 H Calcium Phosphorus Magnesium Iron TIBC Ferritin Total Bilirubin AST ALT Alkaline Phosphatase Total Creatine Kinase Troponin T C-Reactive Protein Total Protein Albumin Triglycerides HDL Cholesterol Miscellaneous Test Crossmatch 08/20/17 08/20/17 08/20/17 03:20 03:20 04:00 WBC 48.0 H* RBC 2.55 L Hgb 7.6 L Hct 23.4 L MCV MCH MCHC RDW 18.4 H Plt Count Lymph % (Auto) Mcmullen % (Auto) Mcmullen # Seg Neutrophils % Seg Neuts % (Manual) 90.0 H Lymphocytes % (Manual) 3.0 L Monocytes % (Manual) Nucleated RBC % Seg Neutrophils # Seg Neutrophils # Man 43.2 H Lymphocytes # (Manual) Monocytes # (Manual) 1.4 H Eosinophils # (Manual) 0.5 H Basophils # (Manual) PT INR POC ABG pH 7.499 H ABG pH POC ABG pCO2 29.1 L POC ABG pO2 ABG pO2 ABG O2 Saturation ABG Base Excess ABG Hemoglobin Oxyhemoglobin Sodium 135 L Potassium Chloride Carbon Dioxide BUN 28 H Creatinine 4.0 H Glucose 140 H POC Glucose Calcium 8.0 L Phosphorus 1.70 L Magnesium 1.60 L Iron TIBC Ferritin Total Bilirubin AST ALT Alkaline Phosphatase Total Creatine Kinase Troponin T C-Reactive Protein Total Protein Albumin Triglycerides HDL Cholesterol Miscellaneous Test Crossmatch 08/20/17 08/20/17 08/20/17 05:02 12:05 13:12 WBC RBC Hgb Hct MCV MCH MCHC RDW Plt Count Lymph % (Auto) Mcmullen % (Auto) Mcmullen # Seg Neutrophils % Seg Neuts % (Manual) Lymphocytes % (Manual) Monocytes % (Manual) Nucleated RBC % Seg Neutrophils # Seg Neutrophils # Man Lymphocytes # (Manual) Monocytes # (Manual) Eosinophils # (Manual) Basophils # (Manual) PT INR POC ABG pH 7.537 H ABG pH POC ABG pCO2 27.9 L POC ABG pO2 79 L ABG pO2 ABG O2 Saturation ABG Base Excess ABG Hemoglobin Oxyhemoglobin Sodium Potassium Chloride Carbon Dioxide BUN Creatinine Glucose POC Glucose 158 H 203 H Calcium Phosphorus Magnesium Iron TIBC Ferritin Total Bilirubin AST ALT Alkaline Phosphatase Total Creatine Kinase Troponin T C-Reactive Protein Total Protein Albumin Triglycerides HDL Cholesterol Miscellaneous Test Crossmatch 08/20/17 08/21/17 08/21/17 17:13 00:47 03:14 WBC RBC Hgb Hct MCV MCH MCHC RDW Plt Count Lymph % (Auto) Mcmullen % (Auto) Mcmullen # Seg Neutrophils % Seg Neuts % (Manual) Lymphocytes % (Manual) Monocytes % (Manual) Nucleated RBC % Seg Neutrophils # Seg Neutrophils # Man Lymphocytes # (Manual) Monocytes # (Manual) Eosinophils # (Manual) Basophils # (Manual) PT INR POC ABG pH 7.481 H ABG pH POC ABG pCO2 29.6 L POC ABG pO2 ABG pO2 ABG O2 Saturation ABG Base Excess ABG Hemoglobin Oxyhemoglobin Sodium Potassium Chloride Carbon Dioxide BUN Creatinine Glucose POC Glucose 188 H 109 H Calcium Phosphorus Magnesium Iron TIBC Ferritin Total Bilirubin AST ALT Alkaline Phosphatase Total Creatine Kinase Troponin T C-Reactive Protein Total Protein Albumin Triglycerides HDL Cholesterol Miscellaneous Test Crossmatch 08/21/17 08/21/17 08/21/17 05:05 06:50 06:50 WBC 44.7 H* RBC 2.41 L Hgb 7.1 L Hct 22.1 L MCV MCH MCHC RDW 18.3 H Plt Count Lymph % (Auto) Mcmullen % (Auto) Mcmullen # Seg Neutrophils % Seg Neuts % (Manual) 89.0 H Lymphocytes % (Manual) 0 L Monocytes % (Manual) Nucleated RBC % 1.0 H Seg Neutrophils # Seg Neutrophils # Man 39.8 H Lymphocytes # (Manual) 0.0 L Monocytes # (Manual) 1.3 H Eosinophils # (Manual) Basophils # (Manual) PT INR POC ABG pH ABG pH POC ABG pCO2 POC ABG pO2 ABG pO2 ABG O2 Saturation ABG Base Excess ABG Hemoglobin Oxyhemoglobin Sodium 135 L Potassium Chloride Carbon Dioxide BUN 39 H Creatinine 4.4 H Glucose 147 H POC Glucose 166 H Calcium 8.1 L Phosphorus Magnesium Iron TIBC Ferritin Total Bilirubin AST ALT < 5 L Alkaline Phosphatase 164 H Total Creatine Kinase Troponin T C-Reactive Protein Total Protein 4.7 L Albumin 1.4 L Triglycerides HDL Cholesterol Miscellaneous Test Crossmatch 08/21/17 08/21/17 08/21/17 08:00 12:21 17:02 WBC RBC Hgb Hct MCV MCH MCHC RDW Plt Count Lymph % (Auto) Mcmullen % (Auto) Mcmullen # Seg Neutrophils % Seg Neuts % (Manual) Lymphocytes % (Manual) Monocytes % (Manual) Nucleated RBC % Seg Neutrophils # Seg Neutrophils # Man Lymphocytes # (Manual) Monocytes # (Manual) Eosinophils # (Manual) Basophils # (Manual) PT INR POC ABG pH ABG pH POC ABG pCO2 POC ABG pO2 ABG pO2 ABG O2 Saturation ABG Base Excess ABG Hemoglobin Oxyhemoglobin Sodium Potassium Chloride Carbon Dioxide BUN Creatinine Glucose POC Glucose 147 H 135 H Calcium Phosphorus Magnesium Iron TIBC Ferritin Total Bilirubin AST ALT Alkaline Phosphatase Total Creatine Kinase Troponin T C-Reactive Protein Total Protein Albumin Triglycerides HDL Cholesterol Miscellaneous Test Crossmatch See Detail 08/21/17 08/22/17 08/22/17 23:38 03:40 03:40 WBC 42.5 H* RBC 2.88 L Hgb 8.5 L Hct 26.3 L MCV MCH MCHC RDW 17.9 H Plt Count Lymph % (Auto) Mcmullen % (Auto) Mcmullen # Seg Neutrophils % Seg Neuts % (Manual) Lymphocytes % (Manual) 5.0 L Monocytes % (Manual) Nucleated RBC % Seg Neutrophils # Seg Neutrophils # Man 19.6 H Lymphocytes # (Manual) Monocytes # (Manual) 2.6 H Eosinophils # (Manual) Basophils # (Manual) PT INR POC ABG pH ABG pH POC ABG pCO2 POC ABG pO2 ABG pO2 ABG O2 Saturation ABG Base Excess ABG Hemoglobin Oxyhemoglobin Sodium Potassium 3.3 L D Chloride Carbon Dioxide BUN 27 H Creatinine 2.9 H Glucose 144 H POC Glucose 251 H Calcium 8.0 L Phosphorus 2.40 L Magnesium Iron TIBC Ferritin Total Bilirubin AST ALT Alkaline Phosphatase Total Creatine Kinase Troponin T C-Reactive Protein Total Protein Albumin Triglycerides HDL Cholesterol Miscellaneous Test Crossmatch 08/22/17 08/22/17 08/22/17 06:37 08:50 11:25 WBC RBC Hgb Hct MCV MCH MCHC RDW Plt Count Lymph % (Auto) Mcmullen % (Auto) Mcmullen # Seg Neutrophils % Seg Neuts % (Manual) Lymphocytes % (Manual) Monocytes % (Manual) Nucleated RBC % Seg Neutrophils # Seg Neutrophils # Man Lymphocytes # (Manual) Monocytes # (Manual) Eosinophils # (Manual) Basophils # (Manual) PT INR POC ABG pH ABG pH POC ABG pCO2 POC ABG pO2 ABG pO2 ABG O2 Saturation ABG Base Excess ABG Hemoglobin Oxyhemoglobin Sodium Potassium Chloride Carbon Dioxide BUN Creatinine Glucose POC Glucose 152 H 175 H Calcium Phosphorus Magnesium Iron TIBC Ferritin Total Bilirubin AST ALT Alkaline Phosphatase Total Creatine Kinase Troponin T C-Reactive Protein Total Protein Albumin Triglycerides HDL Cholesterol Miscellaneous Test Flexitest 1 H Crossmatch 08/22/17 08/22/17 08/22/17 16:25 17:56 23:03 WBC RBC Hgb Hct MCV MCH MCHC RDW Plt Count Lymph % (Auto) Mcmullen % (Auto) Mcmullen # Seg Neutrophils % Seg Neuts % (Manual) Lymphocytes % (Manual) Monocytes % (Manual) Nucleated RBC % Seg Neutrophils # Seg Neutrophils # Man Lymphocytes # (Manual) Monocytes # (Manual) Eosinophils # (Manual) Basophils # (Manual) PT INR POC ABG pH ABG pH POC ABG pCO2 POC ABG pO2 ABG pO2 ABG O2 Saturation ABG Base Excess ABG Hemoglobin Oxyhemoglobin Sodium Potassium Chloride Carbon Dioxide BUN Creatinine Glucose POC Glucose 232 H 192 H Calcium Phosphorus Magnesium Iron TIBC Ferritin Total Bilirubin AST ALT Alkaline Phosphatase Total Creatine Kinase Troponin T C-Reactive Protein 30.70 H Total Protein Albumin Triglycerides HDL Cholesterol Miscellaneous Test Crossmatch 08/23/17 08/23/17 08/23/17 05:36 08:50 12:14 WBC RBC Hgb Hct MCV MCH MCHC RDW Plt Count Lymph % (Auto) Mcmullen % (Auto) Mcmullen # Seg Neutrophils % Seg Neuts % (Manual) Lymphocytes % (Manual) Monocytes % (Manual) Nucleated RBC % Seg Neutrophils # Seg Neutrophils # Man Lymphocytes # (Manual) Monocytes # (Manual) Eosinophils # (Manual) Basophils # (Manual) PT INR POC ABG pH ABG pH POC ABG pCO2 POC ABG pO2 ABG pO2 ABG O2 Saturation ABG Base Excess ABG Hemoglobin Oxyhemoglobin Sodium Potassium Chloride 107.1 H Carbon Dioxide BUN 49 H Creatinine 3.3 H Glucose 172 H POC Glucose 206 H 238 H Calcium Phosphorus Magnesium 2.40 H Iron TIBC Ferritin Total Bilirubin AST ALT Alkaline Phosphatase Total Creatine Kinase Troponin T C-Reactive Protein Total Protein Albumin Triglycerides HDL Cholesterol Miscellaneous Test Crossmatch 08/23/17 08/23/17 08/24/17 17:21 23:13 04:00 WBC 34.2 H RBC 2.86 L Hgb 8.4 L Hct 25.9 L MCV MCH MCHC RDW 17.9 H Plt Count Lymph % (Auto) Mcmullen % (Auto) Mcmullen # Seg Neutrophils % Seg Neuts % (Manual) 85.0 H Lymphocytes % (Manual) 0.5 L Monocytes % (Manual) Nucleated RBC % 1.0 H Seg Neutrophils # Seg Neutrophils # Man 29.1 H Lymphocytes # (Manual) 0.2 L Monocytes # (Manual) 2.4 H Eosinophils # (Manual) Basophils # (Manual) PT INR POC ABG pH ABG pH POC ABG pCO2 POC ABG pO2 ABG pO2 ABG O2 Saturation ABG Base Excess ABG Hemoglobin Oxyhemoglobin Sodium Potassium Chloride Carbon Dioxide BUN Creatinine Glucose POC Glucose 226 H 183 H Calcium Phosphorus Magnesium Iron TIBC Ferritin Total Bilirubin AST ALT Alkaline Phosphatase Total Creatine Kinase Troponin T C-Reactive Protein Total Protein Albumin Triglycerides HDL Cholesterol Miscellaneous Test Crossmatch 08/24/17 08/24/17 08/24/17 05:06 09:30 12:04 WBC RBC Hgb Hct MCV MCH MCHC RDW Plt Count Lymph % (Auto) Mcmullen % (Auto) Mcmullen # Seg Neutrophils % Seg Neuts % (Manual) Lymphocytes % (Manual) Monocytes % (Manual) Nucleated RBC % Seg Neutrophils # Seg Neutrophils # Man Lymphocytes # (Manual) Monocytes # (Manual) Eosinophils # (Manual) Basophils # (Manual) PT INR POC ABG pH ABG pH POC ABG pCO2 POC ABG pO2 ABG pO2 ABG O2 Saturation ABG Base Excess ABG Hemoglobin Oxyhemoglobin Sodium Potassium Chloride Carbon Dioxide BUN 46 H Creatinine 2.5 H Glucose 176 H POC Glucose 201 H 181 H Calcium Phosphorus Magnesium Iron TIBC Ferritin Total Bilirubin AST ALT Alkaline Phosphatase Total Creatine Kinase Troponin T C-Reactive Protein Total Protein Albumin Triglycerides HDL Cholesterol Miscellaneous Test Crossmatch 08/24/17 08/24/17 08/25/17 18:04 23:05 05:05 WBC RBC Hgb Hct MCV MCH MCHC RDW Plt Count Lymph % (Auto) Mcmullen % (Auto) Mcmullen # Seg Neutrophils % Seg Neuts % (Manual) Lymphocytes % (Manual) Monocytes % (Manual) Nucleated RBC % Seg Neutrophils # Seg Neutrophils # Man Lymphocytes # (Manual) Monocytes # (Manual) Eosinophils # (Manual) Basophils # (Manual) PT INR POC ABG pH ABG pH POC ABG pCO2 POC ABG pO2 ABG pO2 ABG O2 Saturation ABG Base Excess ABG Hemoglobin Oxyhemoglobin Sodium Potassium Chloride Carbon Dioxide BUN Creatinine Glucose POC Glucose 189 H 175 H 190 H Calcium Phosphorus Magnesium Iron TIBC Ferritin Total Bilirubin AST ALT Alkaline Phosphatase Total Creatine Kinase Troponin T C-Reactive Protein Total Protein Albumin Triglycerides HDL Cholesterol Miscellaneous Test Crossmatch 08/25/17 08/25/17 08/26/17 07:02 11:53 05:30 WBC 33.5 H RBC 2.47 L Hgb 7.3 L Hct 23.0 L MCV MCH MCHC RDW 21.3 H Plt Count Lymph % (Auto) Mcmullen % (Auto) Mcmullen # Seg Neutrophils % Seg Neuts % (Manual) 92.0 H Lymphocytes % (Manual) 1.0 L Monocytes % (Manual) Nucleated RBC % Seg Neutrophils # Seg Neutrophils # Man 30.8 H Lymphocytes # (Manual) 0.3 L Monocytes # (Manual) Eosinophils # (Manual) Basophils # (Manual) PT INR POC ABG pH ABG pH POC ABG pCO2 POC ABG pO2 ABG pO2 ABG O2 Saturation ABG Base Excess ABG Hemoglobin Oxyhemoglobin Sodium Potassium Chloride Carbon Dioxide BUN 32 H Creatinine 5.0 H D Glucose 117 H POC Glucose 191 H Calcium 8.0 L Phosphorus Magnesium Iron TIBC Ferritin Total Bilirubin AST ALT Alkaline Phosphatase Total Creatine Kinase Troponin T C-Reactive Protein Total Protein Albumin Triglycerides HDL Cholesterol Miscellaneous Test Crossmatch 08/26/17 08/26/17 08/26/17 05:30 06:44 13:26 WBC RBC Hgb Hct MCV MCH MCHC RDW Plt Count Lymph % (Auto) Mcmullen % (Auto) Mcmullen # Seg Neutrophils % Seg Neuts % (Manual) Lymphocytes % (Manual) Monocytes % (Manual) Nucleated RBC % Seg Neutrophils # Seg Neutrophils # Man Lymphocytes # (Manual) Monocytes # (Manual) Eosinophils # (Manual) Basophils # (Manual) PT INR POC ABG pH ABG pH POC ABG pCO2 POC ABG pO2 ABG pO2 ABG O2 Saturation ABG Base Excess ABG Hemoglobin Oxyhemoglobin Sodium Potassium 5.2 H Chloride Carbon Dioxide BUN 80 H Creatinine 3.4 H Glucose 193 H POC Glucose 232 H 207 H Calcium 8.3 L Phosphorus 6.80 H D Magnesium 2.60 H Iron TIBC Ferritin Total Bilirubin AST 135 H ALT Alkaline Phosphatase 211 H Total Creatine Kinase Troponin T C-Reactive Protein Total Protein 4.8 L Albumin 2.0 L Triglycerides HDL Cholesterol Miscellaneous Test Crossmatch 08/27/17 08/27/17 08/27/17 01:08 06:20 06:20 WBC 35.0 H RBC 2.75 L Hgb 8.4 L Hct 25.1 L MCV MCH MCHC RDW 21.8 H Plt Count Lymph % (Auto) Mcmullen % (Auto) Mcmullen # Seg Neutrophils % Seg Neuts % (Manual) Lymphocytes % (Manual) 4.5 L Monocytes % (Manual) Nucleated RBC % Seg Neutrophils # Seg Neutrophils # Man 31.9 H Lymphocytes # (Manual) Monocytes # (Manual) 1.2 H Eosinophils # (Manual) Basophils # (Manual) PT INR POC ABG pH ABG pH POC ABG pCO2 POC ABG pO2 ABG pO2 ABG O2 Saturation ABG Base Excess ABG Hemoglobin Oxyhemoglobin Sodium Potassium Chloride Carbon Dioxide BUN 61 H Creatinine 2.6 H Glucose 184 H POC Glucose 146 H Calcium Phosphorus 4.90 H D Magnesium Iron TIBC Ferritin Total Bilirubin AST ALT Alkaline Phosphatase Total Creatine Kinase Troponin T C-Reactive Protein Total Protein Albumin Triglycerides HDL Cholesterol Miscellaneous Test Crossmatch 08/27/17 08/27/17 08/27/17 07:01 09:17 12:52 WBC RBC Hgb Hct MCV MCH MCHC RDW Plt Count Lymph % (Auto) Mcmullen % (Auto) Mcmullen # Seg Neutrophils % Seg Neuts % (Manual) Lymphocytes % (Manual) Monocytes % (Manual) Nucleated RBC % Seg Neutrophils # Seg Neutrophils # Man Lymphocytes # (Manual) Monocytes # (Manual) Eosinophils # (Manual) Basophils # (Manual) PT INR POC ABG pH ABG pH POC ABG pCO2 POC ABG pO2 ABG pO2 ABG O2 Saturation ABG Base Excess ABG Hemoglobin Oxyhemoglobin Sodium Potassium Chloride Carbon Dioxide BUN Creatinine Glucose POC Glucose 165 H 198 H 218 H Calcium Phosphorus Magnesium Iron TIBC Ferritin Total Bilirubin AST ALT Alkaline Phosphatase Total Creatine Kinase Troponin T C-Reactive Protein Total Protein Albumin Triglycerides HDL Cholesterol Miscellaneous Test Crossmatch 08/27/17 08/28/17 08/28/17 17:27 02:13 06:46 WBC RBC Hgb Hct MCV MCH MCHC RDW Plt Count Lymph % (Auto) Mcmullen % (Auto) Mcmullen # Seg Neutrophils % Seg Neuts % (Manual) Lymphocytes % (Manual) Monocytes % (Manual) Nucleated RBC % Seg Neutrophils # Seg Neutrophils # Man Lymphocytes # (Manual) Monocytes # (Manual) Eosinophils # (Manual) Basophils # (Manual) PT INR POC ABG pH ABG pH POC ABG pCO2 POC ABG pO2 ABG pO2 ABG O2 Saturation ABG Base Excess ABG Hemoglobin Oxyhemoglobin Sodium Potassium Chloride Carbon Dioxide BUN Creatinine Glucose POC Glucose 151 H 155 H 230 H Calcium Phosphorus Magnesium Iron TIBC Ferritin Total Bilirubin AST ALT Alkaline Phosphatase Total Creatine Kinase Troponin T C-Reactive Protein Total Protein Albumin Triglycerides HDL Cholesterol Miscellaneous Test Crossmatch 08/28/17 08/28/17 08/28/17 06:53 06:53 08:19 WBC 31.1 H RBC 2.26 L Hgb 6.8 L Hct 20.9 L MCV MCH MCHC RDW 21.7 H Plt Count Lymph % (Auto) Mcmullen % (Auto) Mcmullen # Seg Neutrophils % Seg Neuts % (Manual) 83.0 H Lymphocytes % (Manual) 4.0 L Monocytes % (Manual) Nucleated RBC % Seg Neutrophils # Seg Neutrophils # Man 25.8 H Lymphocytes # (Manual) Monocytes # (Manual) Eosinophils # (Manual) Basophils # (Manual) PT INR POC ABG pH ABG pH POC ABG pCO2 POC ABG pO2 ABG pO2 ABG O2 Saturation ABG Base Excess ABG Hemoglobin Oxyhemoglobin Sodium Potassium Chloride Carbon Dioxide BUN 81 H Creatinine 3.4 H Glucose 218 H POC Glucose 239 H Calcium Phosphorus 4.90 H Magnesium Iron TIBC Ferritin Total Bilirubin AST ALT Alkaline Phosphatase Total Creatine Kinase Troponin T C-Reactive Protein Total Protein Albumin Triglycerides HDL Cholesterol Miscellaneous Test Crossmatch 08/28/17 08/28/17 08/28/17 11:56 13:05 13:29 WBC RBC Hgb Hct MCV MCH MCHC RDW Plt Count Lymph % (Auto) Mcmullen % (Auto) Mcmullen # Seg Neutrophils % Seg Neuts % (Manual) Lymphocytes % (Manual) Monocytes % (Manual) Nucleated RBC % Seg Neutrophils # Seg Neutrophils # Man Lymphocytes # (Manual) Monocytes # (Manual) Eosinophils # (Manual) Basophils # (Manual) PT 16.7 H INR 1.29 H POC ABG pH ABG pH POC ABG pCO2 POC ABG pO2 338 H ABG pO2 ABG O2 Saturation ABG Base Excess ABG Hemoglobin Oxyhemoglobin Sodium Potassium Chloride Carbon Dioxide BUN Creatinine Glucose POC Glucose Calcium Phosphorus Magnesium Iron TIBC Ferritin Total Bilirubin AST ALT Alkaline Phosphatase Total Creatine Kinase Troponin T C-Reactive Protein Total Protein Albumin Triglycerides HDL Cholesterol Miscellaneous Test Crossmatch See Detail 08/28/17 08/28/17 08/29/17 16:22 19:20 04:24 WBC RBC Hgb Hct MCV MCH MCHC RDW Plt Count Lymph % (Auto) Mcmullen % (Auto) Mcmullen # Seg Neutrophils % Seg Neuts % (Manual) Lymphocytes % (Manual) Monocytes % (Manual) Nucleated RBC % Seg Neutrophils # Seg Neutrophils # Man Lymphocytes # (Manual) Monocytes # (Manual) Eosinophils # (Manual) Basophils # (Manual) PT INR POC ABG pH 7.469 H ABG pH POC ABG pCO2 POC ABG pO2 240 H ABG pO2 ABG O2 Saturation ABG Base Excess ABG Hemoglobin Oxyhemoglobin Sodium Potassium Chloride Carbon Dioxide BUN Creatinine Glucose POC Glucose 209 H 195 H Calcium Phosphorus Magnesium Iron TIBC Ferritin Total Bilirubin AST ALT Alkaline Phosphatase Total Creatine Kinase Troponin T C-Reactive Protein Total Protein Albumin Triglycerides HDL Cholesterol Miscellaneous Test Crossmatch 08/29/17 08/29/17 08/29/17 04:30 04:30 12:07 WBC 44.9 H* RBC Hgb Hct MCV MCH MCHC RDW 23.1 H Plt Count Lymph % (Auto) Mcmullen % (Auto) Mcmullen # Seg Neutrophils % Seg Neuts % (Manual) 38.0 L Lymphocytes % (Manual) 10.0 L Monocytes % (Manual) 10.0 H Nucleated RBC % 6.0 H Seg Neutrophils # Seg Neutrophils # Man 17.1 H Lymphocytes # (Manual) Monocytes # (Manual) 4.5 H Eosinophils # (Manual) Basophils # (Manual) PT INR POC ABG pH ABG pH POC ABG pCO2 POC ABG pO2 ABG pO2 ABG O2 Saturation ABG Base Excess ABG Hemoglobin Oxyhemoglobin Sodium Potassium Chloride Carbon Dioxide BUN 61 H Creatinine 2.4 H Glucose 226 H POC Glucose 200 H Calcium Phosphorus Magnesium Iron TIBC Ferritin Total Bilirubin AST ALT Alkaline Phosphatase Total Creatine Kinase Troponin T C-Reactive Protein Total Protein Albumin Triglycerides HDL Cholesterol Miscellaneous Test Crossmatch 08/29/17 08/29/17 08/29/17 12:30 12:30 17:23 WBC RBC Hgb Hct MCV MCH MCHC RDW Plt Count Lymph % (Auto) Mcmullen % (Auto) Mcmullen # Seg Neutrophils % Seg Neuts % (Manual) Lymphocytes % (Manual) Monocytes % (Manual) Nucleated RBC % Seg Neutrophils # Seg Neutrophils # Man Lymphocytes # (Manual) Monocytes # (Manual) Eosinophils # (Manual) Basophils # (Manual) PT INR POC ABG pH ABG pH POC ABG pCO2 POC ABG pO2 ABG pO2 ABG O2 Saturation ABG Base Excess ABG Hemoglobin Oxyhemoglobin Sodium Potassium Chloride Carbon Dioxide BUN Creatinine Glucose POC Glucose 270 H Calcium Phosphorus Magnesium Iron TIBC Ferritin Total Bilirubin AST ALT Alkaline Phosphatase Total Creatine Kinase Troponin T C-Reactive Protein 19.10 H Total Protein Albumin Triglycerides HDL Cholesterol Miscellaneous Test Flexitest 1 H Crossmatch 08/30/17 08/30/17 08/30/17 00:10 01:30 03:31 WBC RBC Hgb Hct MCV MCH MCHC RDW Plt Count Lymph % (Auto) Mcmullen % (Auto) Mcmullen # Seg Neutrophils % Seg Neuts % (Manual) Lymphocytes % (Manual) Monocytes % (Manual) Nucleated RBC % Seg Neutrophils # Seg Neutrophils # Man Lymphocytes # (Manual) Monocytes # (Manual) Eosinophils # (Manual) Basophils # (Manual) PT INR POC ABG pH 7.168 L 7.335 L ABG pH POC ABG pCO2 72.8 H POC ABG pO2 257 H 117 H ABG pO2 ABG O2 Saturation ABG Base Excess ABG Hemoglobin Oxyhemoglobin Sodium Potassium Chloride Carbon Dioxide BUN Creatinine Glucose POC Glucose 245 H Calcium Phosphorus Magnesium Iron TIBC Ferritin Total Bilirubin AST ALT Alkaline Phosphatase Total Creatine Kinase Troponin T C-Reactive Protein Total Protein Albumin Triglycerides HDL Cholesterol Miscellaneous Test Crossmatch 08/30/17 08/30/17 08/30/17 05:20 05:20 05:20 WBC 40.9 H* RBC 3.64 L Hgb Hct MCV MCH MCHC RDW 24.3 H Plt Count Lymph % (Auto) Mcmullen % (Auto) Mcmullen # Seg Neutrophils % Seg Neuts % (Manual) 80.0 H Lymphocytes % (Manual) 3.0 L Monocytes % (Manual) Nucleated RBC % 1.0 H Seg Neutrophils # Seg Neutrophils # Man 32.7 H Lymphocytes # (Manual) Monocytes # (Manual) Eosinophils # (Manual) Basophils # (Manual) PT INR POC ABG pH ABG pH POC ABG pCO2 POC ABG pO2 ABG pO2 ABG O2 Saturation ABG Base Excess ABG Hemoglobin Oxyhemoglobin Sodium Potassium Chloride Carbon Dioxide BUN 83 H Creatinine 2.9 H Glucose 334 H POC Glucose 309 H Calcium Phosphorus Magnesium Iron TIBC Ferritin Total Bilirubin AST ALT Alkaline Phosphatase Total Creatine Kinase Troponin T C-Reactive Protein Total Protein Albumin Triglycerides HDL Cholesterol Miscellaneous Test Crossmatch 08/30/17 08/30/17 08/31/17 12:18 17:36 00:17 WBC RBC Hgb Hct MCV MCH MCHC RDW Plt Count Lymph % (Auto) Mcmullen % (Auto) Mcmullen # Seg Neutrophils % Seg Neuts % (Manual) Lymphocytes % (Manual) Monocytes % (Manual) Nucleated RBC % Seg Neutrophils # Seg Neutrophils # Man Lymphocytes # (Manual) Monocytes # (Manual) Eosinophils # (Manual) Basophils # (Manual) PT INR POC ABG pH ABG pH POC ABG pCO2 POC ABG pO2 ABG pO2 ABG O2 Saturation ABG Base Excess ABG Hemoglobin Oxyhemoglobin Sodium Potassium Chloride Carbon Dioxide BUN Creatinine Glucose POC Glucose 273 H 293 H 360 H Calcium Phosphorus Magnesium Iron TIBC Ferritin Total Bilirubin AST ALT Alkaline Phosphatase Total Creatine Kinase Troponin T C-Reactive Protein Total Protein Albumin Triglycerides HDL Cholesterol Miscellaneous Test Crossmatch 08/31/17 08/31/17 08/31/17 05:30 05:30 05:32 WBC 29.9 H RBC 2.89 L Hgb 8.2 L Hct 24.7 L D MCV MCH MCHC RDW 24.4 H Plt Count Lymph % (Auto) Mcmullen % (Auto) Mcmullen # Seg Neutrophils % Seg Neuts % (Manual) Lymphocytes % (Manual) 2.0 L Monocytes % (Manual) Nucleated RBC % 2.0 H Seg Neutrophils # Seg Neutrophils # Man 18.5 H Lymphocytes # (Manual) 0.6 L Monocytes # (Manual) 0.9 H Eosinophils # (Manual) Basophils # (Manual) PT INR POC ABG pH ABG pH POC ABG pCO2 POC ABG pO2 ABG pO2 ABG O2 Saturation ABG Base Excess ABG Hemoglobin Oxyhemoglobin Sodium Potassium Chloride Carbon Dioxide BUN 62 H Creatinine 2.2 H Glucose 245 H POC Glucose 257 H Calcium Phosphorus 2.10 L D Magnesium 1.60 L Iron TIBC Ferritin Total Bilirubin AST ALT Alkaline Phosphatase Total Creatine Kinase Troponin T C-Reactive Protein Total Protein Albumin Triglycerides HDL Cholesterol Miscellaneous Test Crossmatch 08/31/17 08/31/17 08/31/17 11:56 12:05 18:14 WBC 32.5 H RBC 3.19 L Hgb 8.8 L Hct 27.9 L MCV MCH MCHC RDW 24.9 H Plt Count Lymph % (Auto) Mcmullen % (Auto) Mcmullen # Seg Neutrophils % Seg Neuts % (Manual) Lymphocytes % (Manual) 1.0 L Monocytes % (Manual) 12.0 H Nucleated RBC % 1.0 H Seg Neutrophils # Seg Neutrophils # Man 13.3 H Lymphocytes # (Manual) 0.3 L Monocytes # (Manual) 3.9 H Eosinophils # (Manual) Basophils # (Manual) PT INR POC ABG pH ABG pH POC ABG pCO2 POC ABG pO2 ABG pO2 ABG O2 Saturation ABG Base Excess ABG Hemoglobin Oxyhemoglobin Sodium Potassium Chloride Carbon Dioxide BUN Creatinine Glucose POC Glucose 245 H Calcium Phosphorus Magnesium Iron TIBC Ferritin Total Bilirubin AST ALT Alkaline Phosphatase Total Creatine Kinase Troponin T C-Reactive Protein Total Protein Albumin Triglycerides HDL Cholesterol Miscellaneous Test Crossmatch See Detail 08/31/17 08/31/17 08/31/17 18:14 18:15 18:22 WBC RBC Hgb Hct MCV MCH MCHC RDW Plt Count Lymph % (Auto) Mcmullen % (Auto) Mcmullen # Seg Neutrophils % Seg Neuts % (Manual) Lymphocytes % (Manual) Monocytes % (Manual) Nucleated RBC % Seg Neutrophils # Seg Neutrophils # Man Lymphocytes # (Manual) Monocytes # (Manual) Eosinophils # (Manual) Basophils # (Manual) PT 15.1 H INR POC ABG pH ABG pH POC ABG pCO2 POC ABG pO2 ABG pO2 ABG O2 Saturation ABG Base Excess ABG Hemoglobin Oxyhemoglobin Sodium 136 L Potassium Chloride Carbon Dioxide 21 L BUN 69 H Creatinine 2.3 H Glucose 227 H POC Glucose 240 H Calcium Phosphorus 2.40 L Magnesium 1.50 L Iron TIBC Ferritin Total Bilirubin AST 143 H ALT 114 H Alkaline Phosphatase 267 H Total Creatine Kinase Troponin T C-Reactive Protein Total Protein 4.1 L Albumin 1.8 L Triglycerides HDL Cholesterol Miscellaneous Test Crossmatch 08/31/17 09/01/17 09/01/17 23:53 05:00 05:00 WBC 33.9 H RBC 2.85 L Hgb 7.8 L Hct 24.8 L MCV MCH 27 L MCHC RDW 23.9 H Plt Count Lymph % (Auto) Mcmullen % (Auto) Mcmullen # Seg Neutrophils % Seg Neuts % (Manual) Lymphocytes % (Manual) 5.0 L Monocytes % (Manual) Nucleated RBC % Seg Neutrophils # Seg Neutrophils # Man 23.1 H Lymphocytes # (Manual) Monocytes # (Manual) Eosinophils # (Manual) Basophils # (Manual) PT INR POC ABG pH ABG pH POC ABG pCO2 POC ABG pO2 ABG pO2 ABG O2 Saturation ABG Base Excess ABG Hemoglobin Oxyhemoglobin Sodium Potassium Chloride Carbon Dioxide BUN 51 H Creatinine 1.8 H Glucose 195 H POC Glucose 301 H Calcium Phosphorus 1.70 L D Magnesium 1.60 L Iron TIBC Ferritin Total Bilirubin AST 80 H ALT 82 H Alkaline Phosphatase 243 H Total Creatine Kinase Troponin T C-Reactive Protein Total Protein 4.2 L Albumin 1.7 L Triglycerides HDL Cholesterol Miscellaneous Test Crossmatch 09/01/17 09/01/17 09/01/17 05:20 05:47 11:37 WBC RBC Hgb Hct MCV MCH MCHC RDW Plt Count Lymph % (Auto) Mcmullen % (Auto) Mcmullen # Seg Neutrophils % Seg Neuts % (Manual) Lymphocytes % (Manual) Monocytes % (Manual) Nucleated RBC % Seg Neutrophils # Seg Neutrophils # Man Lymphocytes # (Manual) Monocytes # (Manual) Eosinophils # (Manual) Basophils # (Manual) PT INR POC ABG pH ABG pH 7.348 L POC ABG pCO2 POC ABG pO2 ABG pO2 70.2 L ABG O2 Saturation ABG Base Excess ABG Hemoglobin 7.5 L Oxyhemoglobin Sodium Potassium Chloride Carbon Dioxide BUN Creatinine Glucose POC Glucose 230 H 254 H Calcium Phosphorus Magnesium Iron TIBC Ferritin Total Bilirubin AST ALT Alkaline Phosphatase Total Creatine Kinase Troponin T C-Reactive Protein Total Protein Albumin Triglycerides HDL Cholesterol Miscellaneous Test Crossmatch 09/01/17 09/01/17 09/02/17 17:39 23:14 04:55 WBC RBC Hgb Hct MCV MCH MCHC RDW Plt Count Lymph % (Auto) Mcmullen % (Auto) Mcmullen # Seg Neutrophils % Seg Neuts % (Manual) Lymphocytes % (Manual) Monocytes % (Manual) Nucleated RBC % Seg Neutrophils # Seg Neutrophils # Man Lymphocytes # (Manual) Monocytes # (Manual) Eosinophils # (Manual) Basophils # (Manual) PT INR POC ABG pH ABG pH POC ABG pCO2 POC ABG pO2 ABG pO2 124.8 H ABG O2 Saturation ABG Base Excess -2.9 L ABG Hemoglobin 5.8 L Oxyhemoglobin Sodium Potassium Chloride Carbon Dioxide BUN Creatinine Glucose POC Glucose 297 H 291 H Calcium Phosphorus Magnesium Iron TIBC Ferritin Total Bilirubin AST ALT Alkaline Phosphatase Total Creatine Kinase Troponin T C-Reactive Protein Total Protein Albumin Triglycerides HDL Cholesterol Miscellaneous Test Crossmatch 09/02/17 09/02/17 09/02/17 05:31 06:10 11:58 WBC RBC Hgb Hct MCV MCH MCHC RDW Plt Count Lymph % (Auto) Mcmullen % (Auto) Mcmullen # Seg Neutrophils % Seg Neuts % (Manual) Lymphocytes % (Manual) Monocytes % (Manual) Nucleated RBC % Seg Neutrophils # Seg Neutrophils # Man Lymphocytes # (Manual) Monocytes # (Manual) Eosinophils # (Manual) Basophils # (Manual) PT INR POC ABG pH ABG pH POC ABG pCO2 POC ABG pO2 ABG pO2 ABG O2 Saturation ABG Base Excess ABG Hemoglobin Oxyhemoglobin Sodium Potassium Chloride Carbon Dioxide BUN 68 H Creatinine 2.2 H Glucose 369 H POC Glucose 245 H 333 H Calcium 8.2 L Phosphorus Magnesium Iron TIBC Ferritin Total Bilirubin AST ALT Alkaline Phosphatase Total Creatine Kinase Troponin T C-Reactive Protein Total Protein Albumin Triglycerides HDL Cholesterol Miscellaneous Test Crossmatch 09/02/17 09/02/17 09/03/17 15:37 23:50 04:00 WBC RBC Hgb Hct MCV MCH MCHC RDW Plt Count Lymph % (Auto) Mcmullen % (Auto) Mcmullen # Seg Neutrophils % Seg Neuts % (Manual) Lymphocytes % (Manual) Monocytes % (Manual) Nucleated RBC % Seg Neutrophils # Seg Neutrophils # Man Lymphocytes # (Manual) Monocytes # (Manual) Eosinophils # (Manual) Basophils # (Manual) PT INR POC ABG pH ABG pH POC ABG pCO2 POC ABG pO2 ABG pO2 ABG O2 Saturation ABG Base Excess ABG Hemoglobin Oxyhemoglobin Sodium Potassium Chloride Carbon Dioxide BUN 59 H Creatinine 1.9 H Glucose 231 H POC Glucose 314 H 240 H Calcium 8.0 L Phosphorus Magnesium Iron TIBC Ferritin Total Bilirubin AST ALT Alkaline Phosphatase 265 H Total Creatine Kinase Troponin T C-Reactive Protein Total Protein 4.4 L Albumin 1.7 L Triglycerides 180 H HDL Cholesterol Miscellaneous Test Crossmatch 09/03/17 09/03/17 09/03/17 05:00 05:32 11:52 WBC 41.5 H* RBC 2.46 L Hgb 6.9 L Hct 21.3 L MCV MCH MCHC RDW 24.9 H Plt Count Lymph % (Auto) Mcmullen % (Auto) Mcmullen # Seg Neutrophils % Seg Neuts % (Manual) Lymphocytes % (Manual) 3.0 L Monocytes % (Manual) 9.5 H Nucleated RBC % 1.5 H Seg Neutrophils # Seg Neutrophils # Man 28.8 H Lymphocytes # (Manual) Monocytes # (Manual) 3.9 H Eosinophils # (Manual) Basophils # (Manual) PT INR POC ABG pH ABG pH POC ABG pCO2 POC ABG pO2 ABG pO2 ABG O2 Saturation ABG Base Excess ABG Hemoglobin Oxyhemoglobin Sodium Potassium Chloride Carbon Dioxide BUN Creatinine Glucose POC Glucose 188 H 285 H Calcium Phosphorus Magnesium Iron TIBC Ferritin Total Bilirubin AST ALT Alkaline Phosphatase Total Creatine Kinase Troponin T C-Reactive Protein Total Protein Albumin Triglycerides HDL Cholesterol Miscellaneous Test Crossmatch 09/03/17 09/03/17 09/03/17 16:55 17:44 23:56 WBC RBC Hgb Hct MCV MCH MCHC RDW Plt Count Lymph % (Auto) Mcmullen % (Auto) Mcmullen # Seg Neutrophils % Seg Neuts % (Manual) Lymphocytes % (Manual) Monocytes % (Manual) Nucleated RBC % Seg Neutrophils # Seg Neutrophils # Man Lymphocytes # (Manual) Monocytes # (Manual) Eosinophils # (Manual) Basophils # (Manual) PT INR POC ABG pH ABG pH POC ABG pCO2 POC ABG pO2 ABG pO2 ABG O2 Saturation ABG Base Excess ABG Hemoglobin Oxyhemoglobin Sodium Potassium Chloride Carbon Dioxide BUN Creatinine Glucose POC Glucose 217 H 193 H Calcium Phosphorus Magnesium Iron TIBC Ferritin Total Bilirubin AST ALT Alkaline Phosphatase Total Creatine Kinase Troponin T C-Reactive Protein Total Protein Albumin Triglycerides HDL Cholesterol Miscellaneous Test Crossmatch See Detail 09/03/17 09/04/17 09/04/17 Unknown 03:47 04:32 WBC 44.7 H* RBC 3.12 L Hgb 8.7 L Hct 26.7 L MCV MCH MCHC RDW 23.5 H Plt Count Lymph % (Auto) Mcmullen % (Auto) Mcmullen # Seg Neutrophils % Seg Neuts % (Manual) Lymphocytes % (Manual) 4.0 L Monocytes % (Manual) Nucleated RBC % 2.0 H Seg Neutrophils # Seg Neutrophils # Man 30.8 H Lymphocytes # (Manual) Monocytes # (Manual) 2.2 H Eosinophils # (Manual) Basophils # (Manual) PT INR POC ABG pH ABG pH POC ABG pCO2 POC ABG pO2 ABG pO2 133.4 H 135.0 H ABG O2 Saturation ABG Base Excess -2.5 L ABG Hemoglobin 5.8 L 7.9 L Oxyhemoglobin Sodium Potassium Chloride Carbon Dioxide BUN Creatinine Glucose POC Glucose Calcium Phosphorus Magnesium Iron TIBC Ferritin Total Bilirubin AST ALT Alkaline Phosphatase Total Creatine Kinase Troponin T C-Reactive Protein Total Protein Albumin Triglycerides HDL Cholesterol Miscellaneous Test Crossmatch 09/04/17 09/04/17 09/04/17 04:32 05:48 10:43 WBC RBC Hgb Hct MCV MCH MCHC RDW Plt Count Lymph % (Auto) Mcmullen % (Auto) Mcmullen # Seg Neutrophils % Seg Neuts % (Manual) Lymphocytes % (Manual) Monocytes % (Manual) Nucleated RBC % Seg Neutrophils # Seg Neutrophils # Man Lymphocytes # (Manual) Monocytes # (Manual) Eosinophils # (Manual) Basophils # (Manual) PT INR POC ABG pH ABG pH POC ABG pCO2 POC ABG pO2 ABG pO2 ABG O2 Saturation ABG Base Excess ABG Hemoglobin Oxyhemoglobin Sodium 136 L Potassium 5.2 H D Chloride 94.2 L Carbon Dioxide BUN 71 H Creatinine 2.3 H Glucose 235 H POC Glucose 329 H Calcium 8.3 L Phosphorus Magnesium Iron TIBC Ferritin Total Bilirubin AST ALT Alkaline Phosphatase Total Creatine Kinase Troponin T C-Reactive Protein Total Protein Albumin Triglycerides HDL Cholesterol Miscellaneous Test Flexitest 1 H Crossmatch 09/04/17 09/04/17 09/05/17 12:38 17:30 00:15 WBC RBC Hgb Hct MCV MCH MCHC RDW Plt Count Lymph % (Auto) Mcmullen % (Auto) Mcmullen # Seg Neutrophils % Seg Neuts % (Manual) Lymphocytes % (Manual) Monocytes % (Manual) Nucleated RBC % Seg Neutrophils # Seg Neutrophils # Man Lymphocytes # (Manual) Monocytes # (Manual) Eosinophils # (Manual) Basophils # (Manual) PT INR POC ABG pH ABG pH POC ABG pCO2 POC ABG pO2 ABG pO2 ABG O2 Saturation ABG Base Excess ABG Hemoglobin Oxyhemoglobin Sodium Potassium Chloride Carbon Dioxide BUN Creatinine Glucose POC Glucose 444 H 331 H 362 H Calcium Phosphorus Magnesium Iron TIBC Ferritin Total Bilirubin AST ALT Alkaline Phosphatase Total Creatine Kinase Troponin T C-Reactive Protein Total Protein Albumin Triglycerides HDL Cholesterol Miscellaneous Test Crossmatch 09/05/17 09/05/17 09/05/17 03:55 03:55 12:12 WBC 35.3 H RBC 2.87 L Hgb 8.1 L Hct 24.6 L MCV MCH MCHC RDW 23.3 H Plt Count Lymph % (Auto) Mcmullen % (Auto) Mcmullen # Seg Neutrophils % Seg Neuts % (Manual) 89.5 H Lymphocytes % (Manual) 3.0 L Monocytes % (Manual) Nucleated RBC % 2.5 H Seg Neutrophils # Seg Neutrophils # Man 31.6 H Lymphocytes # (Manual) 1.1 L Monocytes # (Manual) Eosinophils # (Manual) Basophils # (Manual) PT INR POC ABG pH ABG pH POC ABG pCO2 POC ABG pO2 ABG pO2 ABG O2 Saturation ABG Base Excess ABG Hemoglobin Oxyhemoglobin Sodium 136 L Potassium Chloride 94.7 L Carbon Dioxide BUN 55 H Creatinine 1.8 H Glucose 193 H POC Glucose 344 H Calcium 8.1 L Phosphorus Magnesium Iron TIBC Ferritin Total Bilirubin AST ALT Alkaline Phosphatase Total Creatine Kinase Troponin T C-Reactive Protein Total Protein Albumin Triglycerides HDL Cholesterol Miscellaneous Test Crossmatch 09/05/17 09/05/17 09/05/17 14:32 15:32 16:41 WBC RBC Hgb Hct MCV MCH MCHC RDW Plt Count Lymph % (Auto) Mcmullen % (Auto) Mcmullen # Seg Neutrophils % Seg Neuts % (Manual) Lymphocytes % (Manual) Monocytes % (Manual) Nucleated RBC % Seg Neutrophils # Seg Neutrophils # Man Lymphocytes # (Manual) Monocytes # (Manual) Eosinophils # (Manual) Basophils # (Manual) PT INR POC ABG pH ABG pH POC ABG pCO2 POC ABG pO2 ABG pO2 ABG O2 Saturation ABG Base Excess ABG Hemoglobin Oxyhemoglobin Sodium Potassium Chloride Carbon Dioxide BUN Creatinine Glucose POC Glucose 265 H 145 H 188 H Calcium Phosphorus Magnesium Iron TIBC Ferritin Total Bilirubin AST ALT Alkaline Phosphatase Total Creatine Kinase Troponin T C-Reactive Protein Total Protein Albumin Triglycerides HDL Cholesterol Miscellaneous Test Crossmatch 09/05/17 09/05/17 09/05/17 17:28 18:38 20:10 WBC RBC Hgb Hct MCV MCH MCHC RDW Plt Count Lymph % (Auto) Mcmullen % (Auto) Mcmullen # Seg Neutrophils % Seg Neuts % (Manual) Lymphocytes % (Manual) Monocytes % (Manual) Nucleated RBC % Seg Neutrophils # Seg Neutrophils # Man Lymphocytes # (Manual) Monocytes # (Manual) Eosinophils # (Manual) Basophils # (Manual) PT INR POC ABG pH ABG pH POC ABG pCO2 POC ABG pO2 ABG pO2 ABG O2 Saturation ABG Base Excess ABG Hemoglobin Oxyhemoglobin Sodium Potassium Chloride Carbon Dioxide BUN Creatinine Glucose POC Glucose 246 H 271 H 165 H Calcium Phosphorus Magnesium Iron TIBC Ferritin Total Bilirubin AST ALT Alkaline Phosphatase Total Creatine Kinase Troponin T C-Reactive Protein Total Protein Albumin Triglycerides HDL Cholesterol Miscellaneous Test Crossmatch 09/05/17 09/05/17 09/06/17 21:06 23:07 00:10 WBC RBC Hgb Hct MCV MCH MCHC RDW Plt Count Lymph % (Auto) Mcmullen % (Auto) Mcmullen # Seg Neutrophils % Seg Neuts % (Manual) Lymphocytes % (Manual) Monocytes % (Manual) Nucleated RBC % Seg Neutrophils # Seg Neutrophils # Man Lymphocytes # (Manual) Monocytes # (Manual) Eosinophils # (Manual) Basophils # (Manual) PT INR POC ABG pH ABG pH POC ABG pCO2 POC ABG pO2 ABG pO2 ABG O2 Saturation ABG Base Excess ABG Hemoglobin Oxyhemoglobin Sodium Potassium Chloride Carbon Dioxide BUN Creatinine Glucose POC Glucose 134 H 135 H 147 H Calcium Phosphorus Magnesium Iron TIBC Ferritin Total Bilirubin AST ALT Alkaline Phosphatase Total Creatine Kinase Troponin T C-Reactive Protein Total Protein Albumin Triglycerides HDL Cholesterol Miscellaneous Test Crossmatch 09/06/17 09/06/17 09/06/17 01:08 02:01 03:08 WBC RBC Hgb Hct MCV MCH MCHC RDW Plt Count Lymph % (Auto) Mcmullen % (Auto) Mcmullen # Seg Neutrophils % Seg Neuts % (Manual) Lymphocytes % (Manual) Monocytes % (Manual) Nucleated RBC % Seg Neutrophils # Seg Neutrophils # Man Lymphocytes # (Manual) Monocytes # (Manual) Eosinophils # (Manual) Basophils # (Manual) PT INR POC ABG pH ABG pH POC ABG pCO2 POC ABG pO2 ABG pO2 ABG O2 Saturation ABG Base Excess ABG Hemoglobin Oxyhemoglobin Sodium Potassium Chloride Carbon Dioxide BUN Creatinine Glucose POC Glucose 133 H 146 H 135 H Calcium Phosphorus Magnesium Iron TIBC Ferritin Total Bilirubin AST ALT Alkaline Phosphatase Total Creatine Kinase Troponin T C-Reactive Protein Total Protein Albumin Triglycerides HDL Cholesterol Miscellaneous Test Crossmatch 09/06/17 09/06/17 09/06/17 05:30 05:30 05:30 WBC 38.6 H RBC 2.95 L Hgb 8.3 L Hct 25.3 L MCV MCH MCHC RDW 22.2 H Plt Count Lymph % (Auto) Mcmullen % (Auto) Mcmullen # Seg Neutrophils % Seg Neuts % (Manual) Lymphocytes % (Manual) 2.0 L Monocytes % (Manual) Nucleated RBC % 5.0 H Seg Neutrophils # Seg Neutrophils # Man 25.9 H Lymphocytes # (Manual) 0.8 L Monocytes # (Manual) 1.9 H Eosinophils # (Manual) Basophils # (Manual) PT INR POC ABG pH ABG pH POC ABG pCO2 POC ABG pO2 ABG pO2 ABG O2 Saturation ABG Base Excess ABG Hemoglobin Oxyhemoglobin Sodium 135 L Potassium Chloride 93.5 L Carbon Dioxide BUN 82 H Creatinine 2.3 H Glucose 148 H POC Glucose Calcium Phosphorus Magnesium Iron TIBC Ferritin Total Bilirubin AST ALT Alkaline Phosphatase Total Creatine Kinase Troponin T C-Reactive Protein 2.80 H Total Protein Albumin Triglycerides HDL Cholesterol Miscellaneous Test Crossmatch 09/06/17 09/06/17 09/06/17 05:48 08:04 09:06 WBC RBC Hgb Hct MCV MCH MCHC RDW Plt Count Lymph % (Auto) Mcmullen % (Auto) Mcmullen # Seg Neutrophils % Seg Neuts % (Manual) Lymphocytes % (Manual) Monocytes % (Manual) Nucleated RBC % Seg Neutrophils # Seg Neutrophils # Man Lymphocytes # (Manual) Monocytes # (Manual) Eosinophils # (Manual) Basophils # (Manual) PT INR POC ABG pH ABG pH POC ABG pCO2 POC ABG pO2 ABG pO2 ABG O2 Saturation ABG Base Excess ABG Hemoglobin Oxyhemoglobin Sodium Potassium Chloride Carbon Dioxide BUN Creatinine Glucose POC Glucose 152 H 164 H 172 H Calcium Phosphorus Magnesium Iron TIBC Ferritin Total Bilirubin AST ALT Alkaline Phosphatase Total Creatine Kinase Troponin T C-Reactive Protein Total Protein Albumin Triglycerides HDL Cholesterol Miscellaneous Test Crossmatch 09/06/17 09/06/17 09/06/17 09:57 10:19 10:57 WBC RBC Hgb Hct MCV MCH MCHC RDW Plt Count Lymph % (Auto) Mcmullen % (Auto) Mcmullen # Seg Neutrophils % Seg Neuts % (Manual) Lymphocytes % (Manual) Monocytes % (Manual) Nucleated RBC % Seg Neutrophils # Seg Neutrophils # Man Lymphocytes # (Manual) Monocytes # (Manual) Eosinophils # (Manual) Basophils # (Manual) PT INR POC ABG pH ABG pH POC ABG pCO2 POC ABG pO2 ABG pO2 ABG O2 Saturation ABG Base Excess ABG Hemoglobin Oxyhemoglobin Sodium Potassium Chloride Carbon Dioxide BUN Creatinine Glucose POC Glucose 186 H 162 H Calcium Phosphorus Magnesium Iron TIBC Ferritin Total Bilirubin AST ALT Alkaline Phosphatase Total Creatine Kinase Troponin T C-Reactive Protein Total Protein Albumin Triglycerides HDL Cholesterol Miscellaneous Test Flexitest 1 H Crossmatch 09/06/17 09/06/17 09/06/17 13:12 13:40 17:36 WBC RBC Hgb 8.9 L Hct 28.5 L MCV MCH MCHC RDW Plt Count Lymph % (Auto) Mcmullen % (Auto) Mcmullen # Seg Neutrophils % Seg Neuts % (Manual) Lymphocytes % (Manual) Monocytes % (Manual) Nucleated RBC % Seg Neutrophils # Seg Neutrophils # Man Lymphocytes # (Manual) Monocytes # (Manual) Eosinophils # (Manual) Basophils # (Manual) PT INR POC ABG pH ABG pH POC ABG pCO2 POC ABG pO2 ABG pO2 ABG O2 Saturation ABG Base Excess ABG Hemoglobin Oxyhemoglobin Sodium Potassium Chloride Carbon Dioxide BUN Creatinine Glucose POC Glucose 166 H 161 H Calcium Phosphorus Magnesium Iron TIBC Ferritin Total Bilirubin AST ALT Alkaline Phosphatase Total Creatine Kinase Troponin T C-Reactive Protein Total Protein Albumin Triglycerides HDL Cholesterol Miscellaneous Test Crossmatch 09/07/17 09/07/17 09/07/17 00:13 03:50 03:50 WBC 47.0 H* RBC 2.81 L Hgb 8.1 L Hct 24.1 L MCV MCH MCHC RDW 22.5 H Plt Count Lymph % (Auto) Mcmullen % (Auto) Mcmullen # Seg Neutrophils % Seg Neuts % (Manual) Lymphocytes % (Manual) 9.0 L Monocytes % (Manual) Nucleated RBC % 6.0 H Seg Neutrophils # Seg Neutrophils # Man 27.3 H Lymphocytes # (Manual) Monocytes # (Manual) 0.9 H Eosinophils # (Manual) 1.9 H Basophils # (Manual) PT INR POC ABG pH ABG pH POC ABG pCO2 POC ABG pO2 ABG pO2 ABG O2 Saturation ABG Base Excess ABG Hemoglobin Oxyhemoglobin Sodium 136 L Potassium Chloride 96.3 L Carbon Dioxide BUN 61 H Creatinine 1.7 H Glucose 132 H POC Glucose 183 H Calcium 7.8 L Phosphorus Magnesium Iron TIBC Ferritin Total Bilirubin AST ALT Alkaline Phosphatase Total Creatine Kinase Troponin T C-Reactive Protein Total Protein Albumin Triglycerides HDL Cholesterol Miscellaneous Test Crossmatch 09/07/17 09/07/17 09/07/17 05:12 05:23 11:48 WBC RBC Hgb Hct MCV MCH MCHC RDW Plt Count Lymph % (Auto) Mcmullen % (Auto) Mcmullen # Seg Neutrophils % Seg Neuts % (Manual) Lymphocytes % (Manual) Monocytes % (Manual) Nucleated RBC % Seg Neutrophils # Seg Neutrophils # Man Lymphocytes # (Manual) Monocytes # (Manual) Eosinophils # (Manual) Basophils # (Manual) PT INR POC ABG pH ABG pH POC ABG pCO2 POC ABG pO2 ABG pO2 ABG O2 Saturation ABG Base Excess ABG Hemoglobin 7.7 L Oxyhemoglobin 94.8 L Sodium Potassium Chloride Carbon Dioxide BUN Creatinine Glucose POC Glucose 162 H 200 H Calcium Phosphorus Magnesium Iron TIBC Ferritin Total Bilirubin AST ALT Alkaline Phosphatase Total Creatine Kinase Troponin T C-Reactive Protein Total Protein Albumin Triglycerides HDL Cholesterol Miscellaneous Test Crossmatch 09/07/17 09/07/17 09/08/17 17:07 18:21 00:06 WBC RBC Hgb Hct MCV MCH MCHC RDW Plt Count Lymph % (Auto) Mcmullen % (Auto) Mcmullen # Seg Neutrophils % Seg Neuts % (Manual) Lymphocytes % (Manual) Monocytes % (Manual) Nucleated RBC % Seg Neutrophils # Seg Neutrophils # Man Lymphocytes # (Manual) Monocytes # (Manual) Eosinophils # (Manual) Basophils # (Manual) PT INR POC ABG pH ABG pH POC ABG pCO2 POC ABG pO2 ABG pO2 ABG O2 Saturation ABG Base Excess ABG Hemoglobin Oxyhemoglobin Sodium Potassium Chloride Carbon Dioxide BUN Creatinine Glucose POC Glucose 181 H 168 H Calcium Phosphorus Magnesium Iron TIBC Ferritin Total Bilirubin AST ALT Alkaline Phosphatase Total Creatine Kinase Troponin T C-Reactive Protein Total Protein Albumin Triglycerides HDL Cholesterol Miscellaneous Test Crossmatch See Detail 09/08/17 09/08/17 09/08/17 04:05 04:05 04:41 WBC 49.7 H* RBC 2.58 L Hgb 7.3 L Hct 22.7 L MCV MCH MCHC RDW 22.5 H Plt Count Lymph % (Auto) Mcmullen % (Auto) Mcmullen # Seg Neutrophils % Seg Neuts % (Manual) 90.5 H Lymphocytes % (Manual) 1.5 L Monocytes % (Manual) Nucleated RBC % Seg Neutrophils # Seg Neutrophils # Man 45.0 H Lymphocytes # (Manual) 0.7 L Monocytes # (Manual) 1.7 H Eosinophils # (Manual) Basophils # (Manual) PT INR POC ABG pH ABG pH POC ABG pCO2 POC ABG pO2 ABG pO2 ABG O2 Saturation ABG Base Excess ABG Hemoglobin Oxyhemoglobin Sodium 132 L Potassium Chloride 92.1 L Carbon Dioxide BUN 82 H Creatinine 2.2 H Glucose 162 H POC Glucose 235 H Calcium 8.3 L Phosphorus 5.20 H D Magnesium Iron TIBC Ferritin Total Bilirubin AST ALT Alkaline Phosphatase 199 H Total Creatine Kinase Troponin T C-Reactive Protein Total Protein 4.5 L Albumin 1.7 L Triglycerides HDL Cholesterol Miscellaneous Test Crossmatch 09/08/17 09/08/17 09/08/17 09:21 11:52 17:38 WBC RBC Hgb Hct MCV MCH MCHC RDW Plt Count Lymph % (Auto) [place]mullen % (Auto) Mcmullen # Seg Neutrophils % Seg Neuts % (Manual) Lymphocytes % (Manual) Monocytes % (Manual) Nucleated RBC % Seg Neutrophils # Seg Neutrophils # Man Lymphocytes # (Manual) Monocytes # (Manual) Eosinophils # (Manual) Basophils # (Manual) PT INR POC ABG pH ABG pH POC ABG pCO2 POC ABG pO2 ABG pO2 218.5 H ABG O2 Saturation 99.3 H ABG Base Excess -3.5 L ABG Hemoglobin 7.7 L Oxyhemoglobin Sodium Potassium Chloride Carbon Dioxide BUN Creatinine Glucose POC Glucose 220 H 194 H Calcium Phosphorus Magnesium Iron TIBC Ferritin Total Bilirubin AST ALT Alkaline Phosphatase Total Creatine Kinase Troponin T C-Reactive Protein Total Protein Albumin Triglycerides HDL Cholesterol Miscellaneous Test Crossmatch 09/09/17 09/09/17 09/09/17 00:24 03:37 03:37 WBC 33.5 H RBC 2.36 L Hgb 6.7 L Hct 20.9 L MCV MCH MCHC RDW 22.7 H Plt Count Lymph % (Auto) Mcmullen % (Auto) Mcmullen # Seg Neutrophils % Seg Neuts % (Manual) Lymphocytes % (Manual) Monocytes % (Manual) Nucleated RBC % Seg Neutrophils # Seg Neutrophils # Man Lymphocytes # (Manual) Monocytes # (Manual) Eosinophils # (Manual) Basophils # (Manual) PT INR POC ABG pH ABG pH POC ABG pCO2 POC ABG pO2 ABG pO2 ABG O2 Saturation ABG Base Excess ABG Hemoglobin Oxyhemoglobin Sodium 132 L Potassium Chloride 91.6 L Carbon Dioxide 21 L BUN 101 H Creatinine 2.6 H Glucose 156 H POC Glucose 182 H Calcium 8.3 L Phosphorus 5.90 H Magnesium 2.60 H Iron TIBC Ferritin Total Bilirubin AST ALT Alkaline Phosphatase Total Creatine Kinase Troponin T C-Reactive Protein Total Protein Albumin Triglycerides HDL Cholesterol Miscellaneous Test Crossmatch 09/09/17 09/09/17 09/09/17 05:29 12:03 18:05 WBC RBC Hgb Hct MCV MCH MCHC RDW Plt Count Lymph % (Auto) Mcmullen % (Auto) Mcmullen # Seg Neutrophils % Seg Neuts % (Manual) Lymphocytes % (Manual) Monocytes % (Manual) Nucleated RBC % Seg Neutrophils # Seg Neutrophils # Man Lymphocytes # (Manual) Monocytes # (Manual) Eosinophils # (Manual) Basophils # (Manual) PT INR POC ABG pH ABG pH POC ABG pCO2 POC ABG pO2 ABG pO2 ABG O2 Saturation ABG Base Excess ABG Hemoglobin Oxyhemoglobin Sodium Potassium Chloride Carbon Dioxide BUN Creatinine Glucose POC Glucose 168 H 143 H 173 H Calcium Phosphorus Magnesium Iron TIBC Ferritin Total Bilirubin AST ALT Alkaline Phosphatase Total Creatine Kinase Troponin T C-Reactive Protein Total Protein Albumin Triglycerides HDL Cholesterol Miscellaneous Test Crossmatch 09/09/17 09/09/1717 23:30 Unknown 05:04 WBC RBC Hgb Hct MCV MCH MCHC RDW Plt Count Lymph % (Auto) Mcmullen % (Auto) Mcmullen # Seg Neutrophils % Seg Neuts % (Manual) Lymphocytes % (Manual) Monocytes % (Manual) Nucleated RBC % Seg Neutrophils # Seg Neutrophils # Man Lymphocytes # (Manual) Monocytes # (Manual) Eosinophils # (Manual) Basophils # (Manual) PT INR POC ABG pH ABG pH 7.323 L POC ABG pCO2 POC ABG pO2 ABG pO2 94.1 H ABG O2 Saturation ABG Base Excess -4.8 L ABG Hemoglobin 8.0 L Oxyhemoglobin 94.9 L Sodium Potassium Chloride Carbon Dioxide BUN Creatinine Glucose POC Glucose 212 H 155 H Calcium Phosphorus Magnesium Iron TIBC Ferritin Total Bilirubin AST ALT Alkaline Phosphatase Total Creatine Kinase Troponin T C-Reactive Protein Total Protein Albumin Triglycerides HDL Cholesterol Miscellaneous Test Crossmatch 09/10/17 09/10/17 09/10/17 07:00 09:55 12:22 WBC 24.7 H RBC 2.62 L Hgb 7.5 L Hct 22.5 L MCV MCH MCHC RDW 20.8 H Plt Count Lymph % (Auto) Mcmullen % (Auto) Mcmullen # Seg Neutrophils % Seg Neuts % (Manual) Lymphocytes % (Manual) Monocytes % (Manual) Nucleated RBC % Seg Neutrophils # Seg Neutrophils # Man Lymphocytes # (Manual) Monocytes # (Manual) Eosinophils # (Manual) Basophils # (Manual) PT INR POC ABG pH ABG pH POC ABG pCO2 POC ABG pO2 ABG pO2 ABG O2 Saturation ABG Base Excess ABG Hemoglobin Oxyhemoglobin Sodium Potassium Chloride 97.9 L Carbon Dioxide BUN 78 H Creatinine 2.0 H Glucose 126 H POC Glucose 183 H Calcium 8.2 L Phosphorus Magnesium Iron TIBC Ferritin Total Bilirubin AST ALT Alkaline Phosphatase Total Creatine Kinase Troponin T C-Reactive Protein Total Protein Albumin Triglycerides HDL Cholesterol Miscellaneous Test Crossmatch 09/11/17 09/11/17 09/11/17 00:08 03:50 05:28 WBC 21.6 H RBC 2.52 L Hgb 7.4 L Hct 22.2 L MCV MCH MCHC RDW 21.5 H Plt Count Lymph % (Auto) Mcmullen % (Auto) Mcmullen # Seg Neutrophils % Seg Neuts % (Manual) 92.0 H Lymphocytes % (Manual) 3.0 L Monocytes % (Manual) Nucleated RBC % Seg Neutrophils # Seg Neutrophils # Man 19.9 H Lymphocytes # (Manual) 0.6 L Monocytes # (Manual) Eosinophils # (Manual) Basophils # (Manual) PT INR POC ABG pH ABG pH POC ABG pCO2 POC ABG pO2 ABG pO2 ABG O2 Saturation ABG Base Excess ABG Hemoglobin Oxyhemoglobin Sodium Potassium Chloride Carbon Dioxide BUN Creatinine Glucose POC Glucose 213 H 181 H Calcium Phosphorus Magnesium Iron TIBC Ferritin Total Bilirubin AST ALT Alkaline Phosphatase Total Creatine Kinase Troponin T C-Reactive Protein Total Protein Albumin Triglycerides HDL Cholesterol Miscellaneous Test Crossmatch 09/11/17 09/11/17 09/11/17 11:55 17:56 23:12 WBC RBC Hgb Hct MCV MCH MCHC RDW Plt Count Lymph % (Auto) Mcmullen % (Auto) Mcmullen # Seg Neutrophils % Seg Neuts % (Manual) Lymphocytes % (Manual) Monocytes % (Manual) Nucleated RBC % Seg Neutrophils # Seg Neutrophils # Man Lymphocytes # (Manual) Monocytes # (Manual) Eosinophils # (Manual) Basophils # (Manual) PT INR POC ABG pH ABG pH POC ABG pCO2 POC ABG pO2 ABG pO2 ABG O2 Saturation ABG Base Excess ABG Hemoglobin Oxyhemoglobin Sodium Potassium Chloride Carbon Dioxide 21 L BUN 80 H Creatinine 2.1 H Glucose 170 H POC Glucose 277 H 206 H Calcium 8.0 L Phosphorus Magnesium Iron TIBC Ferritin Total Bilirubin AST ALT Alkaline Phosphatase Total Creatine Kinase Troponin T C-Reactive Protein Total Protein Albumin Triglycerides HDL Cholesterol Miscellaneous Test Crossmatch 09/11/17 09/12/17 09/12/17 23:36 05:25 05:25 WBC 17.4 H RBC 2.29 L Hgb 6.7 L Hct 20.4 L MCV MCH MCHC RDW 21.2 H Plt Count Lymph % (Auto) Mcmullen % (Auto) Mcmullen # Seg Neutrophils % Seg Neuts % (Manual) 79.0 H Lymphocytes % (Manual) 5.0 L Monocytes % (Manual) Nucleated RBC % 1.0 H Seg Neutrophils # Seg Neutrophils # Man 13.7 H Lymphocytes # (Manual) 0.9 L Monocytes # (Manual) 1.2 H Eosinophils # (Manual) Basophils # (Manual) PT INR POC ABG pH ABG pH POC ABG pCO2 POC ABG pO2 ABG pO2 ABG O2 Saturation ABG Base Excess ABG Hemoglobin Oxyhemoglobin Sodium Potassium Chloride Carbon Dioxide BUN Creatinine Glucose POC Glucose 190 H Calcium Phosphorus Magnesium Iron 22 L TIBC 81 L Ferritin Total Bilirubin AST ALT Alkaline Phosphatase Total Creatine Kinase Troponin T C-Reactive Protein Total Protein Albumin Triglycerides HDL Cholesterol Miscellaneous Test Crossmatch 09/12/17 09/12/17 09/12/17 05:25 05:36 09:14 WBC RBC Hgb Hct MCV MCH MCHC RDW Plt Count Lymph % (Auto) Mcmullen % (Auto) Mcmullen # Seg Neutrophils % Seg Neuts % (Manual) Lymphocytes % (Manual) Monocytes % (Manual) Nucleated RBC % Seg Neutrophils # Seg Neutrophils # Man Lymphocytes # (Manual) Monocytes # (Manual) Eosinophils # (Manual) Basophils # (Manual) PT INR POC ABG pH ABG pH POC ABG pCO2 POC ABG pO2 ABG pO2 ABG O2 Saturation ABG Base Excess ABG Hemoglobin Oxyhemoglobin Sodium Potassium Chloride Carbon Dioxide BUN Creatinine Glucose POC Glucose 141 H Calcium Phosphorus Magnesium Iron TIBC Ferritin > 2000.0 H Total Bilirubin AST ALT Alkaline Phosphatase Total Creatine Kinase Troponin T C-Reactive Protein Total Protein Albumin Triglycerides HDL Cholesterol Miscellaneous Test Crossmatch See Detail 09/12/17 09/12/17 09/12/17 11:18 15:22 17:18 WBC RBC Hgb 8.5 L Hct 25.4 L MCV MCH MCHC RDW Plt Count Lymph % (Auto) Mcmullen % (Auto) Mcmullen # Seg Neutrophils % Seg Neuts % (Manual) Lymphocytes % (Manual) Monocytes % (Manual) Nucleated RBC % Seg Neutrophils # Seg Neutrophils # Man Lymphocytes # (Manual) Monocytes # (Manual) Eosinophils # (Manual) Basophils # (Manual) PT INR POC ABG pH ABG pH POC ABG pCO2 POC ABG pO2 ABG pO2 ABG O2 Saturation ABG Base Excess ABG Hemoglobin Oxyhemoglobin Sodium Potassium Chloride Carbon Dioxide BUN Creatinine Glucose POC Glucose 262 H 193 H Calcium Phosphorus Magnesium Iron TIBC Ferritin Total Bilirubin AST ALT Alkaline Phosphatase Total Creatine Kinase Troponin T C-Reactive Protein Total Protein Albumin Triglycerides HDL Cholesterol Miscellaneous Test Crossmatch 09/13/17 09/13/17 09/13/17 00:05 06:25 11:36 WBC RBC Hgb Hct MCV MCH MCHC RDW Plt Count Lymph % (Auto) Mcmullen % (Auto) Mcmullen # Seg Neutrophils % Seg Neuts % (Manual) Lymphocytes % (Manual) Monocytes % (Manual) Nucleated RBC % Seg Neutrophils # Seg Neutrophils # Man Lymphocytes # (Manual) Monocytes # (Manual) Eosinophils # (Manual) Basophils # (Manual) PT INR POC ABG pH 7.347 L ABG pH POC ABG pCO2 34.3 L POC ABG pO2 134 H ABG pO2 ABG O2 Saturation ABG Base Excess ABG Hemoglobin Oxyhemoglobin Sodium Potassium Chloride Carbon Dioxide BUN Creatinine Glucose POC Glucose 235 H 286 H Calcium Phosphorus Magnesium Iron TIBC Ferritin Total Bilirubin AST ALT Alkaline Phosphatase Total Creatine Kinase Troponin T C-Reactive Protein Total Protein Albumin Triglycerides HDL Cholesterol Miscellaneous Test Crossmatch 09/13/17 09/13/17 09/13/17 11:56 17:25 23:18 WBC RBC Hgb Hct MCV MCH MCHC RDW Plt Count Lymph % (Auto) Mcmullen % (Auto) Mcmullen # Seg Neutrophils % Seg Neuts % (Manual) Lymphocytes % (Manual) Monocytes % (Manual) Nucleated RBC % Seg Neutrophils # Seg Neutrophils # Man Lymphocytes # (Manual) Monocytes # (Manual) Eosinophils # (Manual) Basophils # (Manual) PT INR POC ABG pH ABG pH POC ABG pCO2 POC ABG pO2 ABG pO2 ABG O2 Saturation ABG Base Excess ABG Hemoglobin Oxyhemoglobin Sodium Potassium Chloride Carbon Dioxide BUN Creatinine Glucose POC Glucose 318 H 278 H 230 H Calcium Phosphorus Magnesium Iron TIBC Ferritin Total Bilirubin AST ALT Alkaline Phosphatase Total Creatine Kinase Troponin T C-Reactive Protein Total Protein Albumin Triglycerides HDL Cholesterol Miscellaneous Test Crossmatch 09/13/17 09/13/17 09/13/17 Unknown Unknown Unknown WBC 15.6 H RBC 2.72 L Hgb 8.1 L Hct 23.9 L MCV MCH MCHC RDW 19.5 H Plt Count 137 L Lymph % (Auto) Mcmullen % (Auto) Mcmullen # Seg Neutrophils % Seg Neuts % (Manual) 73.0 H Lymphocytes % (Manual) 3.0 L Monocytes % (Manual) 19.0 H Nucleated RBC % 2.0 H Seg Neutrophils # Seg Neutrophils # Man 11.4 H Lymphocytes # (Manual) 0.5 L Monocytes # (Manual) 3.0 H Eosinophils # (Manual) Basophils # (Manual) PT INR POC ABG pH ABG pH POC ABG pCO2 POC ABG pO2 ABG pO2 ABG O2 Saturation ABG Base Excess ABG Hemoglobin Oxyhemoglobin Sodium Potassium Chloride Carbon Dioxide 19 L BUN 103 H Creatinine 2.6 H Glucose 173 H POC Glucose Calcium Phosphorus Magnesium Iron TIBC Ferritin Total Bilirubin AST ALT Alkaline Phosphatase Total Creatine Kinase Troponin T C-Reactive Protein Total Protein Albumin < 0.2 L Triglycerides HDL Cholesterol Miscellaneous Test Crossmatch 09/14/17 09/14/17 09/14/17 03:15 03:15 05:16 WBC 12.5 H RBC 2.55 L Hgb 7.6 L Hct 22.5 L MCV MCH MCHC RDW 19.8 H Plt Count 139 L Lymph % (Auto) Mcmullen % (Auto) Mcmullen # Seg Neutrophils % Seg Neuts % (Manual) Lymphocytes % (Manual) Monocytes % (Manual) Nucleated RBC % Seg Neutrophils # Seg Neutrophils # Man Lymphocytes # (Manual) Monocytes # (Manual) Eosinophils # (Manual) Basophils # (Manual) PT INR POC ABG pH ABG pH POC ABG pCO2 POC ABG pO2 ABG pO2 ABG O2 Saturation ABG Base Excess ABG Hemoglobin Oxyhemoglobin Sodium Potassium Chloride Carbon Dioxide BUN 75 H Creatinine 2.1 H Glucose 217 H POC Glucose 283 H Calcium Phosphorus 2.20 L D Magnesium Iron TIBC Ferritin Total Bilirubin AST ALT Alkaline Phosphatase Total Creatine Kinase Troponin T C-Reactive Protein Total Protein Albumin Triglycerides HDL Cholesterol Miscellaneous Test Crossmatch 09/14/17 09/14/17 09/15/17 12:11 17:47 00:03 WBC RBC Hgb Hct MCV MCH MCHC RDW Plt Count Lymph % (Auto) Mcmullen % (Auto) Mcmullen # Seg Neutrophils % Seg Neuts % (Manual) Lymphocytes % (Manual) Monocytes % (Manual) Nucleated RBC % Seg Neutrophils # Seg Neutrophils # Man Lymphocytes # (Manual) Monocytes # (Manual) Eosinophils # (Manual) Basophils # (Manual) PT INR POC ABG pH ABG pH POC ABG pCO2 POC ABG pO2 ABG pO2 ABG O2 Saturation ABG Base Excess ABG Hemoglobin Oxyhemoglobin Sodium Potassium Chloride Carbon Dioxide BUN Creatinine Glucose POC Glucose 251 H 289 H 229 H Calcium Phosphorus Magnesium Iron TIBC Ferritin Total Bilirubin AST ALT Alkaline Phosphatase Total Creatine Kinase Troponin T C-Reactive Protein Total Protein Albumin Triglycerides HDL Cholesterol Miscellaneous Test Crossmatch 09/15/17 09/15/17 09/15/17 05:00 05:00 05:30 WBC 11.7 H RBC 2.50 L Hgb 7.4 L Hct 22.7 L MCV MCH MCHC RDW 20.5 H Plt Count Lymph % (Auto) Mcmullen % (Auto) Mcmullen # Seg Neutrophils % Seg Neuts % (Manual) Lymphocytes % (Manual) 11.0 L Monocytes % (Manual) 11.0 H Nucleated RBC % Seg Neutrophils # Seg Neutrophils # Man Lymphocytes # (Manual) Monocytes # (Manual) 1.3 H Eosinophils # (Manual) Basophils # (Manual) PT INR POC ABG pH ABG pH POC ABG pCO2 POC ABG pO2 ABG pO2 ABG O2 Saturation ABG Base Excess ABG Hemoglobin Oxyhemoglobin Sodium Potassium Chloride 97.0 L Carbon Dioxide 21 L BUN 94 H Creatinine 2.4 H Glucose 194 H POC Glucose 225 H Calcium Phosphorus Magnesium Iron TIBC Ferritin Total Bilirubin AST ALT Alkaline Phosphatase Total Creatine Kinase Troponin T C-Reactive Protein Total Protein Albumin Triglycerides HDL Cholesterol Miscellaneous Test Crossmatch 09/15/17 09/15/17 09/15/17 07:48 11:38 12:45 WBC RBC 1.93 L Hgb 5.7 L* Hct 17.1 L* MCV MCH MCHC RDW 20.2 H Plt Count 125 L Lymph % (Auto) Mcmullen % (Auto) Mcmullen # Seg Neutrophils % Seg Neuts % (Manual) 79.0 H Lymphocytes % (Manual) 8.0 L Monocytes % (Manual) Nucleated RBC % Seg Neutrophils # Seg Neutrophils # Man Lymphocytes # (Manual) 0.8 L Monocytes # (Manual) Eosinophils # (Manual) Basophils # (Manual) PT INR POC ABG pH ABG pH POC ABG pCO2 POC ABG pO2 ABG pO2 ABG O2 Saturation ABG Base Excess ABG Hemoglobin Oxyhemoglobin Sodium Potassium Chloride Carbon Dioxide BUN Creatinine Glucose POC Glucose 245 H 253 H Calcium Phosphorus Magnesium Iron TIBC Ferritin Total Bilirubin AST ALT Alkaline Phosphatase Total Creatine Kinase Troponin T C-Reactive Protein Total Protein Albumin Triglycerides HDL Cholesterol Miscellaneous Test Crossmatch 09/15/17 09/15/17 09/15/17 12:45 12:45 22:25 WBC 19.6 H RBC 3.32 L Hgb 10.0 L D Hct 29.3 L D MCV MCH MCHC RDW 17.0 H Plt Count 123 L Lymph % (Auto) Mcmullen % (Auto) Mcmullen # Seg Neutrophils % Seg Neuts % (Manual) Lymphocytes % (Manual) 12.0 L Monocytes % (Manual) Nucleated RBC % 5.0 H Seg Neutrophils # Seg Neutrophils # Man 11.0 H Lymphocytes # (Manual) Monocytes # (Manual) 1.2 H Eosinophils # (Manual) Basophils # (Manual) PT 15.4 H INR 1.16 H POC ABG pH ABG pH POC ABG pCO2 POC ABG pO2 ABG pO2 ABG O2 Saturation ABG Base Excess ABG Hemoglobin Oxyhemoglobin Sodium Potassium Chloride Carbon Dioxide BUN Creatinine Glucose POC Glucose Calcium Phosphorus Magnesium Iron TIBC Ferritin Total Bilirubin AST ALT Alkaline Phosphatase Total Creatine Kinase Troponin T C-Reactive Protein Total Protein Albumin Triglycerides HDL Cholesterol Miscellaneous Test Crossmatch See Detail 09/15/17 09/15/17 09/16/17 22:25 23:38 01:26 WBC RBC Hgb Hct MCV MCH MCHC RDW Plt Count Lymph % (Auto) Mcmullen % (Auto) Mcmullen # Seg Neutrophils % Seg Neuts % (Manual) Lymphocytes % (Manual) Monocytes % (Manual) Nucleated RBC % Seg Neutrophils # Seg Neutrophils # Man Lymphocytes # (Manual) Monocytes # (Manual) Eosinophils # (Manual) Basophils # (Manual) PT INR POC ABG pH ABG pH POC ABG pCO2 POC ABG pO2 ABG pO2 ABG O2 Saturation ABG Base Excess ABG Hemoglobin Oxyhemoglobin Sodium Potassium Chloride Carbon Dioxide 17 L BUN 100 H Creatinine 2.6 H Glucose POC Glucose 58 L 132 H Calcium 8.3 L Phosphorus Magnesium 1.60 L Iron TIBC Ferritin Total Bilirubin 2.80 H AST 118 H ALT Alkaline Phosphatase 316 H Total Creatine Kinase Troponin T C-Reactive Protein Total Protein 4.0 L Albumin 1.8 L Triglycerides HDL Cholesterol Miscellaneous Test Crossmatch 09/16/17 09/16/17 09/16/17 05:30 05:30 05:54 WBC 24.6 H RBC 3.22 L Hgb 9.8 L Hct 28.6 L MCV MCH MCHC RDW 17.4 H Plt Count 127 L Lymph % (Auto) Mcmullen % (Auto) Mcmullen # Seg Neutrophils % Seg Neuts % (Manual) Lymphocytes % (Manual) Monocytes % (Manual) Nucleated RBC % Seg Neutrophils # Seg Neutrophils # Man Lymphocytes # (Manual) Monocytes # (Manual) Eosinophils # (Manual) Basophils # (Manual) PT INR POC ABG pH ABG pH POC ABG pCO2 POC ABG pO2 ABG pO2 ABG O2 Saturation ABG Base Excess ABG Hemoglobin Oxyhemoglobin Sodium Potassium Chloride Carbon Dioxide 18 L BUN 109 H Creatinine 2.5 H Glucose 140 H POC Glucose 154 H Calcium Phosphorus 4.80 H Magnesium Iron TIBC Ferritin Total Bilirubin 2.40 H AST 90 H ALT Alkaline Phosphatase 298 H Total Creatine Kinase 20 L Troponin T C-Reactive Protein Total Protein 4.1 L Albumin 1.8 L Triglycerides HDL Cholesterol Miscellaneous Test Crossmatch 09/16/17 09/16/17 09/16/17 11:49 17:04 23:18 WBC RBC Hgb Hct MCV MCH MCHC RDW Plt Count Lymph % (Auto) Mcmullen % (Auto) Mcmullen # Seg Neutrophils % Seg Neuts % (Manual) Lymphocytes % (Manual) Monocytes % (Manual) Nucleated RBC % Seg Neutrophils # Seg Neutrophils # Man Lymphocytes # (Manual) Monocytes # (Manual) Eosinophils # (Manual) Basophils # (Manual) PT INR POC ABG pH ABG pH POC ABG pCO2 POC ABG pO2 ABG pO2 ABG O2 Saturation ABG Base Excess ABG Hemoglobin Oxyhemoglobin Sodium Potassium Chloride Carbon Dioxide BUN Creatinine Glucose POC Glucose 167 H 156 H 162 H Calcium Phosphorus Magnesium Iron TIBC Ferritin Total Bilirubin AST ALT Alkaline Phosphatase Total Creatine Kinase Troponin T C-Reactive Protein Total Protein Albumin Triglycerides HDL Cholesterol Miscellaneous Test Crossmatch 09/17/17 09/17/17 09/17/17 05:27 06:10 06:10 WBC 34.6 H RBC 2.75 L Hgb 8.4 L Hct 24.8 L MCV MCH MCHC RDW 18.3 H Plt Count Lymph % (Auto) Mcmullen % (Auto) Mcmullen # Seg Neutrophils % Seg Neuts % (Manual) 77.0 H Lymphocytes % (Manual) 5.0 L Monocytes % (Manual) Nucleated RBC % 2.0 H Seg Neutrophils # Seg Neutrophils # Man 26.6 H Lymphocytes # (Manual) Monocytes # (Manual) 2.4 H Eosinophils # (Manual) Basophils # (Manual) PT INR POC ABG pH ABG pH POC ABG pCO2 POC ABG pO2 ABG pO2 ABG O2 Saturation ABG Base Excess ABG Hemoglobin Oxyhemoglobin Sodium Potassium Chloride Carbon Dioxide BUN 82 H Creatinine 2.1 H Glucose 252 H POC Glucose 243 H Calcium 8.3 L Phosphorus Magnesium Iron TIBC Ferritin Total Bilirubin AST ALT Alkaline Phosphatase Total Creatine Kinase Troponin T C-Reactive Protein Total Protein Albumin Triglycerides HDL Cholesterol Miscellaneous Test Crossmatch 09/17/17 09/17/17 09/18/17 11:42 17:12 00:08 WBC RBC Hgb Hct MCV MCH MCHC RDW Plt Count Lymph % (Auto) Mcmullen % (Auto) Mcmullen # Seg Neutrophils % Seg Neuts % (Manual) Lymphocytes % (Manual) Monocytes % (Manual) Nucleated RBC % Seg Neutrophils # Seg Neutrophils # Man Lymphocytes # (Manual) Monocytes # (Manual) Eosinophils # (Manual) Basophils # (Manual) PT INR POC ABG pH ABG pH POC ABG pCO2 POC ABG pO2 ABG pO2 ABG O2 Saturation ABG Base Excess ABG Hemoglobin Oxyhemoglobin Sodium Potassium Chloride Carbon Dioxide BUN Creatinine Glucose POC Glucose 232 H 309 H 275 H Calcium Phosphorus Magnesium Iron TIBC Ferritin Total Bilirubin AST ALT Alkaline Phosphatase Total Creatine Kinase Troponin T C-Reactive Protein Total Protein Albumin Triglycerides HDL Cholesterol Miscellaneous Test Crossmatch 09/18/17 09/18/17 09/18/17 05:10 05:10 05:23 WBC 24.4 H RBC 2.57 L Hgb 7.8 L Hct 23.2 L MCV MCH MCHC RDW 19.5 H Plt Count Lymph % (Auto) Mcmullen % (Auto) Mcmullen # Seg Neutrophils % Seg Neuts % (Manual) 78.0 H Lymphocytes % (Manual) 6.0 L Monocytes % (Manual) Nucleated RBC % 2.0 H Seg Neutrophils # Seg Neutrophils # Man 19.0 H Lymphocytes # (Manual) Monocytes # (Manual) Eosinophils # (Manual) Basophils # (Manual) PT INR POC ABG pH ABG pH POC ABG pCO2 POC ABG pO2 ABG pO2 ABG O2 Saturation ABG Base Excess ABG Hemoglobin Oxyhemoglobin Sodium Potassium Chloride Carbon Dioxide BUN 103 H Creatinine 2.8 H Glucose 173 H POC Glucose 224 H Calcium Phosphorus Magnesium Iron TIBC Ferritin Total Bilirubin AST ALT Alkaline Phosphatase Total Creatine Kinase Troponin T C-Reactive Protein Total Protein Albumin Triglycerides HDL Cholesterol Miscellaneous Test Crossmatch 09/18/17 09/18/17 09/18/17 13:59 18:35 23:19 WBC RBC Hgb Hct MCV MCH MCHC RDW Plt Count Lymph % (Auto) Mcmullen % (Auto) Mcmullen # Seg Neutrophils % Seg Neuts % (Manual) Lymphocytes % (Manual) Monocytes % (Manual) Nucleated RBC % Seg Neutrophils # Seg Neutrophils # Man Lymphocytes # (Manual) Monocytes # (Manual) Eosinophils # (Manual) Basophils # (Manual) PT INR POC ABG pH ABG pH POC ABG pCO2 POC ABG pO2 ABG pO2 ABG O2 Saturation ABG Base Excess ABG Hemoglobin Oxyhemoglobin Sodium Potassium Chloride Carbon Dioxide BUN Creatinine Glucose POC Glucose 268 H 220 H 188 H Calcium Phosphorus Magnesium Iron TIBC Ferritin Total Bilirubin AST ALT Alkaline Phosphatase Total Creatine Kinase Troponin T C-Reactive Protein Total Protein Albumin Triglycerides HDL Cholesterol Miscellaneous Test Crossmatch 09/19/17 09/19/17 09/19/17 05:45 06:00 11:41 WBC 17.6 H RBC 2.57 L Hgb 7.9 L Hct 23.2 L MCV MCH MCHC RDW 19.0 H Plt Count Lymph % (Auto) Mcmullen % (Auto) Mcmullen # Seg Neutrophils % Seg Neuts % (Manual) Lymphocytes % (Manual) 9.0 L Monocytes % (Manual) Nucleated RBC % Seg Neutrophils # Seg Neutrophils # Man 11.4 H Lymphocytes # (Manual) Monocytes # (Manual) 0.9 H Eosinophils # (Manual) Basophils # (Manual) PT INR POC ABG pH ABG pH POC ABG pCO2 POC ABG pO2 ABG pO2 ABG O2 Saturation ABG Base Excess ABG Hemoglobin Oxyhemoglobin Sodium Potassium Chloride Carbon Dioxide BUN Creatinine Glucose POC Glucose 178 H 126 H Calcium Phosphorus Magnesium Iron TIBC Ferritin Total Bilirubin AST ALT Alkaline Phosphatase Total Creatine Kinase Troponin T C-Reactive Protein Total Protein Albumin Triglycerides HDL Cholesterol Miscellaneous Test Crossmatch 09/19/17 09/19/17 09/20/17 17:08 23:46 04:46 WBC RBC Hgb Hct MCV MCH MCHC RDW Plt Count Lymph % (Auto) Mcmullen % (Auto) Mcmullen # Seg Neutrophils % Seg Neuts % (Manual) Lymphocytes % (Manual) Monocytes % (Manual) Nucleated RBC % Seg Neutrophils # Seg Neutrophils # Man Lymphocytes # (Manual) Monocytes # (Manual) Eosinophils # (Manual) Basophils # (Manual) PT INR POC ABG pH ABG pH POC ABG pCO2 POC ABG pO2 ABG pO2 ABG O2 Saturation ABG Base Excess ABG Hemoglobin Oxyhemoglobin Sodium Potassium 5.2 H D Chloride 97.4 L Carbon Dioxide 20 L BUN 98 H Creatinine 2.4 H Glucose 187 H POC Glucose 263 H 161 H Calcium Phosphorus Magnesium Iron TIBC Ferritin Total Bilirubin AST ALT Alkaline Phosphatase Total Creatine Kinase Troponin T C-Reactive Protein Total Protein Albumin Triglycerides HDL Cholesterol Miscellaneous Test Crossmatch 09/20/17 09/20/17 09/20/17 05:38 11:36 11:41 WBC 24.5 H RBC 2.84 L Hgb 8.2 L Hct 26.2 L MCV MCH MCHC RDW 20.0 H Plt Count 470 H Lymph % (Auto) Mcmullen % (Auto) Mcmullen # Seg Neutrophils % Seg Neuts % (Manual) Lymphocytes % (Manual) Monocytes % (Manual) Nucleated RBC % Seg Neutrophils # Seg Neutrophils # Man Lymphocytes # (Manual) Monocytes # (Manual) Eosinophils # (Manual) Basophils # (Manual) PT INR POC ABG pH ABG pH POC ABG pCO2 POC ABG pO2 ABG pO2 ABG O2 Saturation ABG Base Excess ABG Hemoglobin Oxyhemoglobin Sodium Potassium Chloride Carbon Dioxide BUN Creatinine Glucose POC Glucose 215 H 220 H Calcium Phosphorus Magnesium Iron TIBC Ferritin Total Bilirubin AST ALT Alkaline Phosphatase Total Creatine Kinase Troponin T C-Reactive Protein Total Protein Albumin Triglycerides HDL Cholesterol Miscellaneous Test Crossmatch 09/20/17 09/21/17 09/21/17 17:45 00:51 04:00 WBC RBC Hgb Hct MCV MCH MCHC RDW Plt Count Lymph % (Auto) Mcmullen % (Auto) Mcmullen # Seg Neutrophils % Seg Neuts % (Manual) Lymphocytes % (Manual) Monocytes % (Manual) Nucleated RBC % Seg Neutrophils # Seg Neutrophils # Man Lymphocytes # (Manual) Monocytes # (Manual) Eosinophils # (Manual) Basophils # (Manual) PT INR POC ABG pH ABG pH POC ABG pCO2 POC ABG pO2 ABG pO2 ABG O2 Saturation ABG Base Excess ABG Hemoglobin Oxyhemoglobin Sodium Potassium 3.2 L D Chloride 96.4 L Carbon Dioxide BUN 63 H Creatinine 1.8 H Glucose 204 H POC Glucose 122 H 137 H Calcium 8.3 L Phosphorus 2.10 L D Magnesium 1.50 L Iron TIBC Ferritin Total Bilirubin AST ALT Alkaline Phosphatase Total Creatine Kinase Troponin T C-Reactive Protein Total Protein Albumin Triglycerides HDL Cholesterol Miscellaneous Test Crossmatch 09/21/17 09/21/17 09/21/17 05:45 08:30 11:50 WBC 27.5 H RBC 2.52 L Hgb 7.7 L Hct 22.8 L MCV MCH MCHC RDW 19.2 H Plt Count 457 H Lymph % (Auto) Mcmullen % (Auto) Mcmullen # Seg Neutrophils % Seg Neuts % (Manual) Lymphocytes % (Manual) Monocytes % (Manual) Nucleated RBC % Seg Neutrophils # Seg Neutrophils # Man Lymphocytes # (Manual) Monocytes # (Manual) Eosinophils # (Manual) Basophils # (Manual) PT INR POC ABG pH ABG pH POC ABG pCO2 POC ABG pO2 ABG pO2 ABG O2 Saturation ABG Base Excess ABG Hemoglobin Oxyhemoglobin Sodium Potassium Chloride Carbon Dioxide BUN Creatinine Glucose POC Glucose 243 H Calcium Phosphorus Magnesium Iron TIBC Ferritin Total Bilirubin AST ALT Alkaline Phosphatase Total Creatine Kinase Troponin T C-Reactive Protein Total Protein Albumin Triglycerides HDL Cholesterol Miscellaneous Test Crossmatch See Detail 09/21/17 09/21/17 09/22/17 13:03 16:39 00:09 WBC RBC Hgb Hct MCV MCH MCHC RDW Plt Count Lymph % (Auto) Mcmullen % (Auto) Mcmullen # Seg Neutrophils % Seg Neuts % (Manual) Lymphocytes % (Manual) Monocytes % (Manual) Nucleated RBC % Seg Neutrophils # Seg Neutrophils # Man Lymphocytes # (Manual) Monocytes # (Manual) Eosinophils # (Manual) Basophils # (Manual) PT INR POC ABG pH ABG pH POC ABG pCO2 POC ABG pO2 ABG pO2 ABG O2 Saturation ABG Base Excess ABG Hemoglobin Oxyhemoglobin Sodium Potassium Chloride Carbon Dioxide BUN Creatinine Glucose POC Glucose 271 H 160 H 191 H Calcium Phosphorus Magnesium Iron TIBC Ferritin Total Bilirubin AST ALT Alkaline Phosphatase Total Creatine Kinase Troponin T C-Reactive Protein Total Protein Albumin Triglycerides HDL Cholesterol Miscellaneous Test Crossmatch 09/22/17 09/22/17 09/22/17 03:37 05:40 07:35 WBC 29.7 H RBC 2.71 L Hgb 8.1 L Hct 24.1 L MCV MCH MCHC RDW 19.6 H Plt Count 491 H Lymph % (Auto) Mcmullen % (Auto) Mcmullen # Seg Neutrophils % Seg Neuts % (Manual) 70.5 H Lymphocytes % (Manual) 12.5 L Monocytes % (Manual) 10.0 H Nucleated RBC % 2.0 H Seg Neutrophils # Seg Neutrophils # Man 20.9 H Lymphocytes # (Manual) Monocytes # (Manual) 3.0 H Eosinophils # (Manual) Basophils # (Manual) PT INR POC ABG pH ABG pH POC ABG pCO2 POC ABG pO2 ABG pO2 ABG O2 Saturation ABG Base Excess ABG Hemoglobin Oxyhemoglobin Sodium Potassium 3.0 L Chloride 95.9 L Carbon Dioxide BUN 74 H Creatinine 2.1 H Glucose 126 H POC Glucose 150 H Calcium Phosphorus 2.10 L Magnesium 1.40 L Iron TIBC Ferritin Total Bilirubin AST ALT Alkaline Phosphatase 311 H Total Creatine Kinase Troponin T C-Reactive Protein Total Protein 4.4 L Albumin 2.0 L Triglycerides HDL Cholesterol Miscellaneous Test Crossmatch 09/22/17 09/23/17 09/23/17 12:20 05:02 05:02 WBC 37.5 H RBC 2.54 L Hgb 7.3 L Hct 22.9 L MCV MCH MCHC RDW 19.4 H Plt Count 471 H Lymph % (Auto) Mcmullen % (Auto) Mcmullen # Seg Neutrophils % Seg Neuts % (Manual) Lymphocytes % (Manual) 8.0 L Monocytes % (Manual) Nucleated RBC % 1.0 H Seg Neutrophils # Seg Neutrophils # Man 15.0 H Lymphocytes # (Manual) Monocytes # (Manual) 1.9 H Eosinophils # (Manual) Basophils # (Manual) PT INR POC ABG pH ABG pH POC ABG pCO2 POC ABG pO2 ABG pO2 ABG O2 Saturation ABG Base Excess ABG Hemoglobin Oxyhemoglobin Sodium 136 L Potassium 3.0 L Chloride 93.8 L Carbon Dioxide BUN 99 H Creatinine 2.7 H Glucose POC Glucose 106 H Calcium 8.2 L Phosphorus 2.40 L Magnesium Iron TIBC Ferritin Total Bilirubin AST ALT Alkaline Phosphatase Total Creatine Kinase Troponin T C-Reactive Protein Total Protein Albumin Triglycerides HDL Cholesterol Miscellaneous Test Crossmatch 09/23/17 09/23/17 09/23/17 05:39 11:21 18:19 WBC RBC Hgb Hct MCV MCH MCHC RDW Plt Count Lymph % (Auto) Mcmullen % (Auto) Mcmullen # Seg Neutrophils % Seg Neuts % (Manual) Lymphocytes % (Manual) Monocytes % (Manual) Nucleated RBC % Seg Neutrophils # Seg Neutrophils # Man Lymphocytes # (Manual) Monocytes # (Manual) Eosinophils # (Manual) Basophils # (Manual) PT INR POC ABG pH ABG pH POC ABG pCO2 POC ABG pO2 ABG pO2 ABG O2 Saturation ABG Base Excess ABG Hemoglobin Oxyhemoglobin Sodium Potassium Chloride Carbon Dioxide BUN Creatinine Glucose POC Glucose 118 H 130 H 189 H Calcium Phosphorus Magnesium Iron TIBC Ferritin Total Bilirubin AST ALT Alkaline Phosphatase Total Creatine Kinase Troponin T C-Reactive Protein Total Protein Albumin Triglycerides HDL Cholesterol Miscellaneous Test Crossmatch 09/23/17 09/24/17 09/24/17 23:55 04:00 04:00 WBC 37.8 H RBC 2.76 L Hgb 8.1 L Hct 24.8 L MCV MCH MCHC RDW 19.8 H Plt Count 539 H Lymph % (Auto) Mcmullen % (Auto) Mcmullen # Seg Neutrophils % Seg Neuts % (Manual) Lymphocytes % (Manual) 4.0 L Monocytes % (Manual) Nucleated RBC % 6.0 H Seg Neutrophils # Seg Neutrophils # Man 19.3 H Lymphocytes # (Manual) Monocytes # (Manual) 1.5 H Eosinophils # (Manual) Basophils # (Manual) 0.4 H PT INR POC ABG pH ABG pH POC ABG pCO2 POC ABG pO2 ABG pO2 ABG O2 Saturation ABG Base Excess ABG Hemoglobin Oxyhemoglobin Sodium Potassium 3.5 L Chloride 95.2 L Carbon Dioxide BUN 67 H Creatinine 1.9 H Glucose 140 H POC Glucose 120 H Calcium 8.2 L Phosphorus 2.00 L Magnesium Iron TIBC Ferritin Total Bilirubin AST ALT Alkaline Phosphatase Total Creatine Kinase Troponin T C-Reactive Protein Total Protein Albumin Triglycerides HDL Cholesterol Miscellaneous Test Crossmatch 09/24/17 09/24/17 09/24/17 04:00 05:33 12:16 WBC RBC Hgb Hct MCV MCH MCHC RDW Plt Count Lymph % (Auto) Mcmullen % (Auto) Mcmullen # Seg Neutrophils % Seg Neuts % (Manual) Lymphocytes % (Manual) Monocytes % (Manual) Nucleated RBC % Seg Neutrophils # Seg Neutrophils # Man Lymphocytes # (Manual) Monocytes # (Manual) Eosinophils # (Manual) Basophils # (Manual) PT INR POC ABG pH ABG pH POC ABG pCO2 POC ABG pO2 ABG pO2 ABG O2 Saturation ABG Base Excess ABG Hemoglobin Oxyhemoglobin Sodium Potassium Chloride Carbon Dioxide BUN Creatinine Glucose POC Glucose 178 H 262 H Calcium Phosphorus Magnesium Iron TIBC Ferritin Total Bilirubin AST ALT Alkaline Phosphatase Total Creatine Kinase Troponin T C-Reactive Protein Total Protein Albumin Triglycerides HDL Cholesterol Miscellaneous Test Crossmatch See Detail 09/24/17 09/24/17 09/25/17 17:51 23:33 06:03 WBC RBC Hgb Hct MCV MCH MCHC RDW Plt Count Lymph % (Auto) Mcmullen % (Auto) Mcmullen # Seg Neutrophils % Seg Neuts % (Manual) Lymphocytes % (Manual) Monocytes % (Manual) Nucleated RBC % Seg Neutrophils # Seg Neutrophils # Man Lymphocytes # (Manual) Monocytes # (Manual) Eosinophils # (Manual) Basophils # (Manual) PT INR POC ABG pH ABG pH POC ABG pCO2 POC ABG pO2 ABG pO2 ABG O2 Saturation ABG Base Excess ABG Hemoglobin Oxyhemoglobin Sodium Potassium Chloride Carbon Dioxide BUN Creatinine Glucose POC Glucose 166 H 142 H 173 H Calcium Phosphorus Magnesium Iron TIBC Ferritin Total Bilirubin AST ALT Alkaline Phosphatase Total Creatine Kinase Troponin T C-Reactive Protein Total Protein Albumin Triglycerides HDL Cholesterol Miscellaneous Test Crossmatch 09/25/17 09/25/17 09/25/17 07:49 07:49 11:36 WBC 59.6 H* RBC 2.63 L Hgb 7.7 L Hct 26.0 L MCV 99 H MCH MCHC RDW 21.8 H Plt Count Lymph % (Auto) Mcmullen % (Auto) Mcmullen # Seg Neutrophils % Seg Neuts % (Manual) Lymphocytes % (Manual) 2.0 L Monocytes % (Manual) Nucleated RBC % 8.0 H Seg Neutrophils # Seg Neutrophils # Man 41.7 H Lymphocytes # (Manual) Monocytes # (Manual) 1.2 H Eosinophils # (Manual) Basophils # (Manual) PT INR POC ABG pH ABG pH POC ABG pCO2 POC ABG pO2 ABG pO2 ABG O2 Saturation ABG Base Excess ABG Hemoglobin Oxyhemoglobin Sodium Potassium 5.3 H D Chloride 97.7 L Carbon Dioxide 19 L BUN 90 H Creatinine 2.5 H Glucose 181 H POC Glucose 308 H Calcium 8.0 L Phosphorus Magnesium Iron TIBC Ferritin Total Bilirubin AST ALT Alkaline Phosphatase Total Creatine Kinase Troponin T C-Reactive Protein Total Protein Albumin Triglycerides HDL Cholesterol Miscellaneous Test Crossmatch 09/25/17 09/25/17 09/26/17 16:11 23:38 05:25 WBC 61.9 H* RBC 2.30 L Hgb 7.0 L Hct 21.4 L MCV MCH MCHC RDW 21.3 H Plt Count Lymph % (Auto) Mcmullen % (Auto) Mcmullen # Seg Neutrophils % Seg Neuts % (Manual) Lymphocytes % (Manual) 1.0 L Monocytes % (Manual) Nucleated RBC % 7.0 H Seg Neutrophils # Seg Neutrophils # Man 37.1 H Lymphocytes # (Manual) 0.6 L Monocytes # (Manual) 1.9 H Eosinophils # (Manual) Basophils # (Manual) PT INR POC ABG pH ABG pH POC ABG pCO2 POC ABG pO2 ABG pO2 ABG O2 Saturation ABG Base Excess ABG Hemoglobin Oxyhemoglobin Sodium Potassium Chloride Carbon Dioxide BUN Creatinine Glucose POC Glucose 249 H 263 H Calcium Phosphorus Magnesium Iron TIBC Ferritin Total Bilirubin AST ALT Alkaline Phosphatase Total Creatine Kinase Troponin T C-Reactive Protein Total Protein Albumin Triglycerides HDL Cholesterol Miscellaneous Test Crossmatch 09/26/17 09/26/17 09/26/17 05:25 05:32 11:33 WBC RBC Hgb Hct MCV MCH MCHC RDW Plt Count Lymph % (Auto) Mcmullen % (Auto) Mcmullen # Seg Neutrophils % Seg Neuts % (Manual) Lymphocytes % (Manual) Monocytes % (Manual) Nucleated RBC % Seg Neutrophils # Seg Neutrophils # Man Lymphocytes # (Manual) Monocytes # (Manual) Eosinophils # (Manual) Basophils # (Manual) PT INR POC ABG pH ABG pH POC ABG pCO2 POC ABG pO2 ABG pO2 ABG O2 Saturation ABG Base Excess ABG Hemoglobin Oxyhemoglobin Sodium Potassium Chloride Carbon Dioxide 21 L BUN 81 H Creatinine 2.3 H Glucose 178 H POC Glucose 225 H 246 H Calcium 8.1 L Phosphorus Magnesium Iron TIBC Ferritin Total Bilirubin AST ALT Alkaline Phosphatase Total Creatine Kinase Troponin T C-Reactive Protein Total Protein Albumin Triglycerides HDL Cholesterol Miscellaneous Test Crossmatch 09/26/17 09/27/17 09/27/17 17:43 00:11 04:00 WBC 63.0 H* RBC 2.23 L Hgb 6.3 L Hct 20.6 L MCV MCH MCHC RDW 20.6 H Plt Count Lymph % (Auto) Mcmullen % (Auto) Mcmullen # Seg Neutrophils % Seg Neuts % (Manual) Lymphocytes % (Manual) 3.0 L Monocytes % (Manual) Nucleated RBC % 6.0 H Seg Neutrophils # Seg Neutrophils # Man 40.3 H Lymphocytes # (Manual) Monocytes # (Manual) 4.4 H Eosinophils # (Manual) Basophils # (Manual) PT INR POC ABG pH ABG pH POC ABG pCO2 POC ABG pO2 ABG pO2 ABG O2 Saturation ABG Base Excess ABG Hemoglobin Oxyhemoglobin Sodium Potassium Chloride Carbon Dioxide BUN Creatinine Glucose POC Glucose 180 H 194 H Calcium Phosphorus Magnesium Iron TIBC Ferritin Total Bilirubin AST ALT Alkaline Phosphatase Total Creatine Kinase Troponin T C-Reactive Protein Total Protein Albumin Triglycerides HDL Cholesterol Miscellaneous Test Crossmatch 09/27/17 09/27/17 09/27/17 04:00 04:00 05:11 WBC RBC Hgb Hct MCV MCH MCHC RDW Plt Count Lymph % (Auto) Mcmullen % (Auto) Mcmullen # Seg Neutrophils % Seg Neuts % (Manual) Lymphocytes % (Manual) Monocytes % (Manual) Nucleated RBC % Seg Neutrophils # Seg Neutrophils # Man Lymphocytes # (Manual) Monocytes # (Manual) Eosinophils # (Manual) Basophils # (Manual) PT INR POC ABG pH ABG pH POC ABG pCO2 POC ABG pO2 ABG pO2 ABG O2 Saturation ABG Base Excess ABG Hemoglobin Oxyhemoglobin Sodium Potassium Chloride Carbon Dioxide 19 L BUN 102 H Creatinine 2.8 H Glucose 141 H POC Glucose 189 H Calcium 8.1 L Phosphorus Magnesium 2.40 H Iron TIBC Ferritin Total Bilirubin AST ALT Alkaline Phosphatase Total Creatine Kinase Troponin T C-Reactive Protein Total Protein Albumin Triglycerides HDL Cholesterol Miscellaneous Test Crossmatch 09/27/17 09/27/17 09/27/17 08:58 11:54 17:20 WBC RBC Hgb Hct MCV MCH MCHC RDW Plt Count Lymph % (Auto) Mcmullen % (Auto) Mcmullen # Seg Neutrophils % Seg Neuts % (Manual) Lymphocytes % (Manual) Monocytes % (Manual) Nucleated RBC % Seg Neutrophils # Seg Neutrophils # Man Lymphocytes # (Manual) Monocytes # (Manual) Eosinophils # (Manual) Basophils # (Manual) PT INR POC ABG pH ABG pH POC ABG pCO2 POC ABG pO2 ABG pO2 ABG O2 Saturation ABG Base Excess ABG Hemoglobin Oxyhemoglobin Sodium Potassium Chloride Carbon Dioxide BUN Creatinine Glucose POC Glucose 196 H 199 H Calcium Phosphorus Magnesium Iron TIBC Ferritin Total Bilirubin AST ALT Alkaline Phosphatase Total Creatine Kinase Troponin T C-Reactive Protein Total Protein Albumin Triglycerides HDL Cholesterol Miscellaneous Test Crossmatch See Detail 09/28/17 09/28/17 09/28/17 00:11 05:23 12:07 WBC RBC Hgb Hct MCV MCH MCHC RDW Plt Count Lymph % (Auto) Mcmullen % (Auto) Mcmullen # Seg Neutrophils % Seg Neuts % (Manual) Lymphocytes % (Manual) Monocytes % (Manual) Nucleated RBC % Seg Neutrophils # Seg Neutrophils # Man Lymphocytes # (Manual) Monocytes # (Manual) Eosinophils # (Manual) Basophils # (Manual) PT INR POC ABG pH ABG pH POC ABG pCO2 POC ABG pO2 ABG pO2 ABG O2 Saturation ABG Base Excess ABG Hemoglobin Oxyhemoglobin Sodium Potassium Chloride Carbon Dioxide BUN Creatinine Glucose POC Glucose 155 H 237 H 218 H Calcium Phosphorus Magnesium Iron TIBC Ferritin Total Bilirubin AST ALT Alkaline Phosphatase Total Creatine Kinase Troponin T C-Reactive Protein Total Protein Albumin Triglycerides HDL Cholesterol Miscellaneous Test Crossmatch 09/28/17 09/28/17 09/28/17 17:58 Unknown Unknown WBC 39.0 H RBC 3.10 L Hgb 9.6 L D Hct 27.6 L D MCV MCH MCHC 35 H RDW 17.1 H Plt Count Lymph % (Auto) Mcmullen % (Auto) Mcmullen # Seg Neutrophils % Seg Neuts % (Manual) 80.5 H Lymphocytes % (Manual) 0.5 L Monocytes % (Manual) Nucleated RBC % Seg Neutrophils # Seg Neutrophils # Man 31.4 H Lymphocytes # (Manual) 0.2 L Monocytes # (Manual) 2.5 H Eosinophils # (Manual) Basophils # (Manual) PT INR POC ABG pH ABG pH POC ABG pCO2 POC ABG pO2 ABG pO2 ABG O2 Saturation ABG Base Excess ABG Hemoglobin Oxyhemoglobin Sodium Potassium 3.4 L D Chloride Carbon Dioxide BUN 72 H Creatinine 2.0 H Glucose 194 H POC Glucose 108 H Calcium 7.4 L Phosphorus Magnesium Iron TIBC Ferritin Total Bilirubin AST ALT Alkaline Phosphatase Total Creatine Kinase Troponin T C-Reactive Protein Total Protein Albumin Triglycerides HDL Cholesterol Miscellaneous Test Crossmatch 09/29/17 09/29/17 09/29/17 00:12 06:00 06:00 WBC 28.0 H RBC 2.92 L Hgb 8.7 L Hct 26.5 L MCV MCH MCHC RDW 17.1 H Plt Count Lymph % (Auto) Mcmullen % (Auto) Mcmullen # Seg Neutrophils % Seg Neuts % (Manual) 74.5 H Lymphocytes % (Manual) 5.5 L Monocytes % (Manual) 10.5 H Nucleated RBC % Seg Neutrophils # Seg Neutrophils # Man 20.9 H Lymphocytes # (Manual) Monocytes # (Manual) 2.9 H Eosinophils # (Manual) Basophils # (Manual) PT INR POC ABG pH ABG pH POC ABG pCO2 POC ABG pO2 ABG pO2 ABG O2 Saturation ABG Base Excess ABG Hemoglobin Oxyhemoglobin Sodium Potassium Chloride 97.9 L Carbon Dioxide BUN 101 H Creatinine 2.5 H Glucose 177 H POC Glucose 117 H Calcium 7.6 L Phosphorus Magnesium Iron TIBC Ferritin Total Bilirubin AST ALT Alkaline Phosphatase Total Creatine Kinase Troponin T C-Reactive Protein Total Protein Albumin Triglycerides HDL Cholesterol Miscellaneous Test Crossmatch 09/29/17 09/29/17 09/29/17 06:27 11:50 17:27 WBC RBC Hgb Hct MCV MCH MCHC RDW Plt Count Lymph % (Auto) Mcmullen % (Auto) Mcmullen # Seg Neutrophils % Seg Neuts % (Manual) Lymphocytes % (Manual) Monocytes % (Manual) Nucleated RBC % Seg Neutrophils # Seg Neutrophils # Man Lymphocytes # (Manual) Monocytes # (Manual) Eosinophils # (Manual) Basophils # (Manual) PT INR POC ABG pH ABG pH POC ABG pCO2 POC ABG pO2 ABG pO2 ABG O2 Saturation ABG Base Excess ABG Hemoglobin Oxyhemoglobin Sodium Potassium Chloride Carbon Dioxide BUN Creatinine Glucose POC Glucose 183 H 209 H 150 H Calcium Phosphorus Magnesium Iron TIBC Ferritin Total Bilirubin AST ALT Alkaline Phosphatase Total Creatine Kinase Troponin T C-Reactive Protein Total Protein Albumin Triglycerides HDL Cholesterol Miscellaneous Test Crossmatch 09/30/17 09/30/17 09/30/17 05:20 05:20 05:31 WBC 23.0 H RBC 2.64 L Hgb 7.9 L Hct 23.9 L MCV MCH MCHC RDW 18.1 H Plt Count Lymph % (Auto) Mcmullen % (Auto) Mcmullen # Seg Neutrophils % Seg Neuts % (Manual) 29.0 L Lymphocytes % (Manual) Monocytes % (Manual) 11.0 H Nucleated RBC % Seg Neutrophils # Seg Neutrophils # Man Lymphocytes # (Manual) Monocytes # (Manual) 2.5 H Eosinophils # (Manual) Basophils # (Manual) PT INR POC ABG pH ABG pH POC ABG pCO2 POC ABG pO2 ABG pO2 ABG O2 Saturation ABG Base Excess ABG Hemoglobin Oxyhemoglobin Sodium Potassium Chloride 97.0 L Carbon Dioxide 20 L BUN 120 H Creatinine 2.9 H Glucose 126 H POC Glucose 143 H Calcium 8.2 L Phosphorus Magnesium Iron TIBC Ferritin Total Bilirubin AST ALT Alkaline Phosphatase Total Creatine Kinase Troponin T C-Reactive Protein Total Protein Albumin Triglycerides HDL Cholesterol Miscellaneous Test Crossmatch 09/30/17 09/30/17 10/01/17 11:24 23:40 05:45 WBC RBC Hgb Hct MCV MCH MCHC RDW Plt Count Lymph % (Auto) Mcmullen % (Auto) Mcmullen # Seg Neutrophils % Seg Neuts % (Manual) Lymphocytes % (Manual) Monocytes % (Manual) Nucleated RBC % Seg Neutrophils # Seg Neutrophils # Man Lymphocytes # (Manual) Monocytes # (Manual) Eosinophils # (Manual) Basophils # (Manual) PT INR POC ABG pH ABG pH POC ABG pCO2 POC ABG pO2 ABG pO2 ABG O2 Saturation ABG Base Excess ABG Hemoglobin Oxyhemoglobin Sodium Potassium Chloride Carbon Dioxide BUN 83 H Creatinine 2.2 H Glucose 140 H POC Glucose 197 H 121 H Calcium Phosphorus 2.40 L D Magnesium Iron TIBC Ferritin Total Bilirubin AST ALT Alkaline Phosphatase Total Creatine Kinase Troponin T C-Reactive Protein Total Protein Albumin Triglycerides HDL Cholesterol Miscellaneous Test Crossmatch 10/01/17 10/01/17 10/01/17 05:45 05:48 12:29 WBC 23.0 H RBC 2.60 L Hgb 7.8 L Hct 23.8 L MCV MCH MCHC RDW 17.5 H Plt Count Lymph % (Auto) Mcmullen % (Auto) Mcmullen # Seg Neutrophils % Seg Neuts % (Manual) 81.0 H Lymphocytes % (Manual) 2.0 L Monocytes % (Manual) 10.0 H Nucleated RBC % Seg Neutrophils # Seg Neutrophils # Man 18.6 H Lymphocytes # (Manual) 0.5 L Monocytes # (Manual) 2.3 H Eosinophils # (Manual) Basophils # (Manual) PT INR POC ABG pH ABG pH POC ABG pCO2 POC ABG pO2 ABG pO2 ABG O2 Saturation ABG Base Excess ABG Hemoglobin Oxyhemoglobin Sodium Potassium Chloride Carbon Dioxide BUN Creatinine Glucose POC Glucose 123 H 191 H Calcium Phosphorus Magnesium Iron TIBC Ferritin Total Bilirubin AST ALT Alkaline Phosphatase Total Creatine Kinase Troponin T C-Reactive Protein Total Protein Albumin Triglycerides HDL Cholesterol Miscellaneous Test Crossmatch 10/01/17 10/02/17 10/02/17 17:46 05:00 05:27 WBC RBC Hgb Hct MCV MCH MCHC RDW Plt Count Lymph % (Auto) Mcmullen % (Auto) Mcmullen # Seg Neutrophils % Seg Neuts % (Manual) Lymphocytes % (Manual) Monocytes % (Manual) Nucleated RBC % Seg Neutrophils # Seg Neutrophils # Man Lymphocytes # (Manual) Monocytes # (Manual) Eosinophils # (Manual) Basophils # (Manual) PT INR POC ABG pH ABG pH POC ABG pCO2 POC ABG pO2 ABG pO2 ABG O2 Saturation ABG Base Excess ABG Hemoglobin Oxyhemoglobin Sodium Potassium Chloride Carbon Dioxide BUN 108 H Creatinine 2.5 H Glucose 113 H POC Glucose 56 L 120 H Calcium Phosphorus Magnesium Iron TIBC Ferritin Total Bilirubin AST ALT Alkaline Phosphatase Total Creatine Kinase Troponin T C-Reactive Protein Total Protein Albumin Triglycerides HDL Cholesterol Miscellaneous Test Crossmatch 10/02/17 10:05 WBC 18.1 H RBC 2.67 L Hgb 8.0 L Hct 24.1 L MCV MCH MCHC RDW 17.1 H Plt Count Lymph % (Auto) Mcmullen % (Auto) Mcmullen # Seg Neutrophils % Seg Neuts % (Manual) Lymphocytes % (Manual) Monocytes % (Manual) Nucleated RBC % Seg Neutrophils # Seg Neutrophils # Man Lymphocytes # (Manual) Monocytes # (Manual) Eosinophils # (Manual) Basophils # (Manual) PT INR POC ABG pH ABG pH POC ABG pCO2 POC ABG pO2 ABG pO2 ABG O2 Saturation ABG Base Excess ABG Hemoglobin Oxyhemoglobin Sodium Potassium Chloride Carbon Dioxide BUN Creatinine Glucose POC Glucose Calcium Phosphorus Magnesium Iron TIBC Ferritin Total Bilirubin AST ALT Alkaline Phosphatase Total Creatine Kinase Troponin T C-Reactive Protein Total Protein Albumin Triglycerides HDL Cholesterol Miscellaneous Test Crossmatch
[2017-10-02 11:17] LABS: Anisocytosis 1+; Basophils % (Manual) 0 % (0.0-1.8); Blastocytes % (Manual) 0 %; Diff Status Complete; Eosinophils % (Manual) 0 % (0.0-4.3); Hypochromasia Rare; Platelet Estimate Consistent w Auto; Polychromasia Rare; Schistocytes Rare
[2017-10-02] MEDS: MYCAMINE 100 MG in NACL 0.9% 100 ML IV SCH (11:45)
[2017-10-02] MEDS ORDERED: PROAMATINE FEEDTUBE SCH (14:00)
--- NOTE | 2017-10-02 17:40 | Progress Note ---
Assessment and Plan 62 y.o. F s/p ex lap, repair of enterotomy, then s/p ex lap, transverse colon resection, colostomy creation, and s/p ex lap, abdominal wash out and abdominal wall closure after wound dehiscence 3 weeks s/p ex lap for gastric perforation and sbo. complicated patient with hx of several abdominal procedures this admission, starting with surgery for SBO and gastric perforation. Most recently, s/p exlap and repair of enterotomy and midline closure with biologic mesh due to dehiscence leukocytosis- abx per ID: line holiday scheduled continues to improve Nurtrition: TPN for nutritional support. trickle feeds via g tube started. monitor residuals. Residuals improved however upper MERVIN appears to have tube feeds in bulb and also increased midline drainage. Will hold feeds overnight and reasses wound in am. wound care: -wound vac not possible due to retention suture- will continue daily to BID dressing changes. Once retention sutures removed, possible wound vac. -santyl to border of wound at site of fat necrosis. -Monitor ostomy site - mucocutaneous seperation occuring medial portion of ostomy. will contact wound care in am. Renal : HD per renal DVT proph: scds GI: PPI. - Patient Problems (1) Peritonitis (acute) generalized Current Visit: Yes Status: Acute Subjective Narrative: Pt just finished HD. During HD her levo requirements increased to 15. This am she was only on 2-5. Afebrile during day. outputs: residuals from G tube: 3-5cc Objective Vital Signs - 12hr 10/02/17 10/02/17 10/02/17 05:45 06:00 06:15 Temperature Pulse Rate 105 H 107 H 107 H Pulse Rate [ From Monitor] Respiratory 29 H 28 H 27 H Rate Blood Pressure 84/39 99/42 94/43 O2 Sat by Pulse 88 97 98 Oximetry O2 Sat by Pulse Oximetry [ Anterior Bilateral Throughout] 10/02/17 10/02/17 10/02/17 06:30 06:45 07:01 Temperature Pulse Rate 105 H 104 H 112 H Pulse Rate [ From Monitor] Respiratory 27 H 27 H 34 H Rate Blood Pressure 80/40 85/43 85/43 O2 Sat by Pulse 98 99 99 Oximetry O2 Sat by Pulse Oximetry [ Anterior Bilateral Throughout] 10/02/17 10/02/17 10/02/17 07:15 07:30 07:45 Temperature Pulse Rate 106 H 108 H 104 H Pulse Rate [ From Monitor] Respiratory 26 H 24 24 Rate Blood Pressure 84/46 81/42 91/39 O2 Sat by Pulse 99 98 98 Oximetry O2 Sat by Pulse Oximetry [ Anterior Bilateral Throughout] 10/02/17 10/02/17 10/02/17 08:00 08:15 08:30 Temperature 98.6 F Pulse Rate 102 H 104 H 105 H Pulse Rate [ 102 H From Monitor] Respiratory 24 25 H 23 Rate Blood Pressure 82/45 93/42 85/40 O2 Sat by Pulse 99 98 99 Oximetry O2 Sat by Pulse Oximetry [ Anterior Bilateral Throughout] 10/02/17 10/02/17 10/02/17 08:45 09:00 09:15 Temperature Pulse Rate 107 H 106 H 106 H Pulse Rate [ From Monitor] Respiratory 20 23 24 Rate Blood Pressure 87/42 90/44 89/40 O2 Sat by Pulse 99 99 98 Oximetry O2 Sat by Pulse Oximetry [ Anterior Bilateral Throughout] 10/02/17 10/02/17 10/02/17 09:30 09:36 09:45 Temperature Pulse Rate 104 H 111 H 109 H Pulse Rate [ From Monitor] Respiratory 24 22 34 H Rate Blood Pressure 87/40 87/40 96/41 O2 Sat by Pulse 98 98 Oximetry O2 Sat by Pulse Oximetry [ Anterior Bilateral Throughout] 10/02/17 10/02/17 10/02/17 10:00 10:15 10:30 Temperature Pulse Rate 107 H 110 H 112 H Pulse Rate [ From Monitor] Respiratory 33 H 35 H 33 H Rate Blood Pressure 94/43 92/43 91/41 O2 Sat by Pulse 98 99 98 Oximetry O2 Sat by Pulse Oximetry [ Anterior Bilateral Throughout] 10/02/17 10/02/17 10/02/17 10:45 11:00 11:15 Temperature Pulse Rate 108 H 108 H 108 H Pulse Rate [ From Monitor] Respiratory 33 H 34 H 31 H Rate Blood Pressure 84/43 84/45 87/46 O2 Sat by Pulse 98 98 99 Oximetry O2 Sat by Pulse Oximetry [ Anterior Bilateral Throughout] 10/02/17 10/02/17 10/02/17 11:30 11:45 12:00 Temperature 98.3 F Pulse Rate 110 H 107 H 105 H Pulse Rate [ 105 H From Monitor] Respiratory 32 H 32 H 34 H Rate Blood Pressure 90/46 87/44 92/45 O2 Sat by Pulse 99 99 98 Oximetry O2 Sat by Pulse Oximetry [ Anterior Bilateral Throughout] 10/02/17 10/02/17 10/02/17 12:15 12:30 12:45 Temperature Pulse Rate 105 H 105 H 118 H Pulse Rate [ From Monitor] Respiratory 32 H 36 H 32 H Rate Blood Pressure 92/47 87/45 123/79 O2 Sat by Pulse 98 99 Oximetry O2 Sat by Pulse Oximetry [ Anterior Bilateral Throughout] 10/02/17 10/02/17 10/02/17 13:01 13:15 13:30 Temperature Pulse Rate 107 H 111 H 106 H Pulse Rate [ From Monitor] Respiratory 35 H 36 H 36 H Rate Blood Pressure 85/50 105/58 100/48 O2 Sat by Pulse 98 99 99 Oximetry O2 Sat by Pulse Oximetry [ Anterior Bilateral Throughout] 10/02/17 10/02/17 10/02/17 13:45 13:50 14:00 Temperature 98.3 F Pulse Rate 103 H 98 H 105 H Pulse Rate [ From Monitor] Respiratory 34 H 25 H 35 H Rate Blood Pressure 82/42 96/54 96/51 O2 Sat by Pulse 100 Oximetry O2 Sat by Pulse 100 Oximetry [ Anterior Bilateral Throughout] 10/02/17 10/02/17 10/02/17 14:15 14:16 14:30 Temperature Pulse Rate 104 H 99 H 103 H Pulse Rate [ From Monitor] Respiratory 31 H 25 H Rate Blood Pressure 108/57 108/57 92/49 O2 Sat by Pulse 98 99 Oximetry O2 Sat by Pulse Oximetry [ Anterior Bilateral Throughout] 10/02/17 10/02/17 10/02/17 14:45 15:00 15:05 Temperature Pulse Rate 105 H 105 H 105 H Pulse Rate [ From Monitor] Respiratory 24 25 H Rate Blood Pressure 90/32 91/37 91/37 O2 Sat by Pulse 100 Oximetry O2 Sat by Pulse Oximetry [ Anterior Bilateral Throughout] 10/02/17 10/02/17 10/02/17 15:15 15:21 15:31 Temperature Pulse Rate 109 H 112 H 103 H Pulse Rate [ From Monitor] Respiratory 25 H 27 H Rate Blood Pressure 73/20 80/37 88/60 O2 Sat by Pulse 100 Oximetry O2 Sat by Pulse Oximetry [ Anterior Bilateral Throughout] 10/02/17 10/02/17 10/02/17 15:45 15:46 16:00 Temperature 98.3 F Pulse Rate 107 H 110 H 114 H Pulse Rate [ 109 H From Monitor] Respiratory 28 H 29 H Rate Blood Pressure 83/59 83/59 67/38 O2 Sat by Pulse 99 Oximetry O2 Sat by Pulse Oximetry [ Anterior Bilateral Throughout] 10/02/17 10/02/17 10/02/17 16:01 16:05 16:15 Temperature Pulse Rate 109 H 106 H 106 H Pulse Rate [ From Monitor] Respiratory 29 H 27 H Rate Blood Pressure 67/38 71/41 83/59 O2 Sat by Pulse 99 99 Oximetry O2 Sat by Pulse Oximetry [ Anterior Bilateral Throughout] 10/02/17 10/02/17 10/02/17 16:30 16:47 17:00 Temperature Pulse Rate 107 H 108 H 107 H Pulse Rate [ From Monitor] Respiratory Rate Blood Pressure 102/64 100/74 112/61 O2 Sat by Pulse Oximetry O2 Sat by Pulse Oximetry [ Anterior Bilateral Throughout] 10/02/17 10/02/17 17:15 17:32 Temperature Pulse Rate 115 H 110 H Pulse Rate [ From Monitor] Respiratory Rate Blood Pressure 103/63 101/64 O2 Sat by Pulse Oximetry O2 Sat by Pulse Oximetry [ Anterior Bilateral Throughout] - General physical appearance chronically ill, obese - Neck other (trach midline, vent ) - Respiratory normal expansion - Abdomen soft, other (Midline dressing removed. Serosang discharge. mid: fat necrosis . wound irrigated and repacked with calcium alginate and gauze. no leakage of stool from colostomy. ) - Integumentary no rash - Psychiatric other (awake , does not follow commands ) - Labs 10/02/17 10:05 10/02/17 05:00 Diabetes panel 10/02/17 Range/Units 05:00 Sodium 142 (137-145) mmol/L Potassium 4.2 (3.6-5.0) mmol/L Chloride 99.9 (98-107) mmol/L Carbon Dioxide 22 (22-30) mmol/L BUN 108 H (7-17) mg/dL Creatinine 2.5 H (0.7-1.2) mg/dL Glucose 113 H (65-100) mg/dL Calcium 8.4 (8.4-10.2) mg/dL Calcium panel 10/02/17 Range/Units 05:00 Calcium 8.4 (8.4-10.2) mg/dL Phosphorus 2.70 (2.5-4.5) mg/dL Pituitary panel 10/02/17 Range/Units 05:00 Sodium 142 (137-145) mmol/L Potassium 4.2 (3.6-5.0) mmol/L Chloride 99.9 (98-107) mmol/L Carbon Dioxide 22 (22-30) mmol/L BUN 108 H (7-17) mg/dL Creatinine 2.5 H (0.7-1.2) mg/dL Glucose 113 H (65-100) mg/dL Calcium 8.4 (8.4-10.2) mg/dL Adrenal panel 10/02/17 Range/Units 05:00 Sodium 142 (137-145) mmol/L Potassium 4.2 (3.6-5.0) mmol/L Chloride 99.9 (98-107) mmol/L Carbon Dioxide 22 (22-30) mmol/L BUN 108 H (7-17) mg/dL Creatinine 2.5 H (0.7-1.2) mg/dL Glucose 113 H (65-100) mg/dL Calcium 8.4 (8.4-10.2) mg/dL
[2017-10-02] MEDS: HEPARIN IV PRN (19:09)
--- NOTE | 2017-10-02 19:41 | Progress Note ---
Assessment and Plan Assessment and plan: 62 yo female with abdominal abscess and peritonitis s/p surgical intervention complicated with bowel obstruction/surgical wound infection/dehiscence and multiple surgical reinterventions, with respiratory failure and refractory hypotension Acute bacterial peritonitis/intra-abdominal abscess/bowel obstruction S/p PD catheter removal and multiple exploratory laparatomy 08/17 expl lap - abscess LUQ, bowel obstruction, ?perforation of unclear location ; PDs cath removal, abd washout, G tube placement 08/31 expl lap with washout and closure 09/15 expl lap transverse colectomy, right-sided colostomy, washout 09/24 expl lap abdominal washout, placement of biological mesh, closure of small bowel enterotomy Complicated with wound infection, dehiscence Multiple antibiotic courses per ID recommendation; currently on meropenem and fluconazole day 05/31 Septic shock Due to abdominal abscess and catheter associated UTI Completed antibiotics courses Still on low-dose Levophed and midodrine Now with candidemia; started on micafungin; ID recommended removal of or cervical catheters Acute hypoxic respiratory failure Status post trach Still on vent, PSV trials Weaning per pulmonary End-stage renal disease Previously on PD, s/p cath removal and switched to HD Nephro following and assessing HD needs Anemia Blood loss anemia + anemia of chronic disease S/p PRBCs Epogen with HD Monitor H&H Ulcerative esophagitis/small gastric ulcer S/p EGD S/p multiple transfusions On PPI CAUTI Completed antibiotics Pancreatitis Resolved Leukocytosis Slowly trending down Monitor ID following NSVT Cardiology believes that it was secondary to Levophed which now weaning off History of cervical surgery Wheelchair bound since then Pain control Penicillin allergy ? Has taken keflex in the past w/o problems Malnutrition Was on TPN Started on TF, but having high residuals DVT prophylaxis SCDs History Interval history: remains on levophed had fever Hospitalist Physical - Constitutional Vitals: Temp Pulse Resp BP Pulse Ox 98.3 F 109 H 26 H 114/44 100 10/02/17 17:52 10/02/17 17:52 10/02/17 17:52 10/02/17 17:52 10/02/17 17:52 General appearance: Present: mild distress, obese - EENT Eyes: Present: PERRL, EOM intact. Absent: scleral icterus, conjunctival injection - Neck Neck: Present: supple. Absent: enlarged thyroid, masses or JVD - Respiratory Respiratory effort: other (intubated) Respiratory: bilateral: diminished, rhonchi, negative: wheezing - Cardiovascular Rhythm: other (tachycardic) Heart Sounds: Present: S1 & S2. Absent: systolic murmur - Extremities Extremities: no ischemia - Abdominal General gastrointestinal: soft, tender, non-distended, other (J tube, MERVIN drain, ostomy) - Neurologic Neurologic: other (paraplegia) Results - Labs CBC & Chem 7: 10/03/17 04:00 10/02/17 05:00 Labs: Laboratory Last Values WBC 18.1 K/mm3 (4.5-11.0) H 10/02/17 10:05 RBC 2.67 M/mm3 (3.65-5.03) L 10/02/17 10:05 Hgb 8.0 gm/dl (10.1-14.3) L 10/02/17 10:05 Hct 24.1 % (30.3-42.9) L 10/02/17 10:05 MCV 90 fl (79-97) 10/02/17 10:05 MCH 30 pg (28-32) 10/02/17 10:05 MCHC 33 % (30-34) 10/02/17 10:05 RDW 17.1 % (13.2-15.2) H 10/02/17 10:05 Plt Count 246 K/mm3 (140-440) 10/02/17 10:05 Lymph % (Auto) Project Superintendent 08/19/17 07:37 [place] % (Auto) Project Superintendent 10/02/17 10:05 Eos % (Auto) Project Superintendent 08/19/17 07:37 Baso % (Auto) Project Superintendent 08/19/17 07:37 Lymph # Project Superintendent 09/26/17 05:25 [place] # Project Superintendent 08/19/17 07:37 Eos # Project Superintendent 08/19/17 07:37 Baso # Project Superintendent 08/19/17 07:37 Add Manual Diff Complete 10/02/17 10:05 Total Counted 100 10/02/17 10:05 Seg Neutrophils % Project Superintendent 09/08/17 04:05 Seg Neuts % (Manual) 69.0 % (40.0-70.0) 10/02/17 10:05 Band Neutrophils % 9.0 % 10/02/17 10:05 Lymphocytes % (Manual) 5.0 % (13.4-35.0) L 10/02/17 10:05 Reactive Lymphs % (Man) 0 % 10/02/17 10:05 Monocytes % (Manual) 17.0 % (0.0-7.3) H 10/02/17 10:05 Eosinophils % (Manual) 0 % (0.0-4.3) 10/02/17 10:05 Basophils % (Manual) 0 % (0.0-1.8) 10/02/17 10:05 Metamyelocytes % 0 % 10/02/17 10:05 Myelocytes % 0 % 10/02/17 10:05 Promyelocytes % 0 % 10/02/17 10:05 Blast Cells % 0 % 10/02/17 10:05 Nucleated RBC % Not Reportable 10/02/17 10:05 Seg Neutrophils # Project Superintendent 08/19/17 07:37 Seg Neutrophils # Man 12.5 K/mm3 (1.8-7.7) H 10/02/17 10:05 Band Neutrophils # 1.6 K/mm3 10/02/17 10:05 Lymphocytes # (Manual) 0.9 K/mm3 (1.2-5.4) L 10/02/17 10:05 Abs React Lymphs (Man) 0.0 K/mm3 10/02/17 10:05 Monocytes # (Manual) 3.1 K/mm3 (0.0-0.8) H 10/02/17 10:05 Eosinophils # (Manual) 0.0 K/mm3 (0.0-0.4) 10/02/17 10:05 Basophils # (Manual) 0.0 K/mm3 (0.0-0.1) 10/02/17 10:05 Metamyelocytes # 0.0 K/mm3 10/02/17 10:05 Myelocytes # 0.0 K/mm3 10/02/17 10:05 Promyelocytes # 0.0 K/mm3 10/02/17 10:05 Blast Cells # 0.0 K/mm3 10/02/17 10:05 Pathologist Review Not Reportable 08/30/17 05:20 WBC Morphology Not Reportable 10/02/17 10:05 Hypersegmented Neuts Not Reportable 10/02/17 10:05 Hyposegmented Neuts Not Reportable 10/02/17 10:05 Hypogranular Neuts Not Reportable 10/02/17 10:05 Smudge Cells Not Reportable 10/02/17 10:05 Toxic Granulation Not Reportable 10/02/17 10:05 Toxic Vacuolation Not Reportable 10/02/17 10:05 Dohle Bodies Not Reportable 10/02/17 10:05 Pelger-Huet Anomaly Not Reportable 10/02/17 10:05 Ariel Rods Not Reportable 10/02/17 10:05 Platelet Estimate Consistent w auto 10/02/17 10:05 Clumped Platelets Not Reportable 10/02/17 10:05 Plt Clumps, EDTA Not Reportable 10/02/17 10:05 Large Platelets Not Reportable 10/02/17 10:05 Giant Platelets Not Reportable 10/02/17 10:05 Platelet Satelliting Not Reportable 10/02/17 10:05 Plt Morphology Comment Not Reportable 10/02/17 10:05 RBC Morphology Not Reportable 10/02/17 10:05 Dimorphic RBCs Not Reportable 10/02/17 10:05 Polychromasia Rare 10/02/17 10:05 Hypochromasia Rare 10/02/17 10:05 Poikilocytosis Not Reportable 10/02/17 10:05 Anisocytosis 1+ 10/02/17 10:05 Microcytosis Not Reportable 10/02/17 10:05 Macrocytosis Not Reportable 10/02/17 10:05 Spherocytes Not Reportable 10/02/17 10:05 Pappenheimer Bodies Not Reportable 10/02/17 10:05 Sickle Cells Not Reportable 10/02/17 10:05 Target Cells Not Reportable 10/02/17 10:05 Tear Drop Cells Not Reportable 10/02/17 10:05 Ovalocytes Not Reportable 10/02/17 10:05 Stomatocytes Rare 09/12/17 05:25 Helmet Cells Not Reportable 10/02/17 10:05 Vera-Blackwood Bodies Not Reportable 10/02/17 10:05 [place] Rings Not Reportable 10/02/17 10:05 Mason Cells Not Reportable 10/02/17 10:05 Bite Cells Not Reportable 10/02/17 10:05 Crenated Cell Not Reportable 10/02/17 10:05 Elliptocytes Not Reportable 10/02/17 10:05 Acanthocytes (Spur) Not Reportable 10/02/17 10:05 Rouleaux Not Reportable 10/02/17 10:05 Hemoglobin C Crystals Not Reportable 10/02/17 10:05 Schistocytes Rare 10/02/17 10:05 Malaria parasites Not Reportable 10/02/17 10:05 Jovanni Bodies Not Reportable 10/02/17 10:05 Hem Pathologist Commnt No 10/02/17 10:05 PT 14.9 Sec. (12.2-14.9) 09/21/17 07:00 INR 1.11 (0.87-1.13) 09/21/17 07:00 APTT 28.7 Sec. (24.2-36.6) 08/31/17 18:15 POC ABG pH 7.347 (7.35-7.45) L 09/13/17 11:36 ABG pH 7.323 pH Units (7.350-7.450) L 09/09/17 Unknown POC ABG pCO2 34.3 (35-45) L 09/13/17 11:36 ABG pCO2 41.1 mm Hg 09/09/17 Unknown POC ABG pO2 134 (80-105) H 09/13/17 11:36 ABG pO2 94.1 mm Hg (80.0-90.0) H 09/09/17 Unknown POC ABG HCO3 18.8 09/13/17 11:36 ABG HCO3 20.9 mmol/L (20.0-26.0) 09/09/17 Unknown POC ABG Total CO2 20 09/13/17 11:36 POC ABG O2 Sat 99 09/13/17 11:36 ABG O2 Saturation 97.2 % (95.0-99.0) 09/09/17 Unknown ABG O2 Content 10.9 (0.0-44) 09/09/17 Unknown POC ABG Base Excess -7 09/13/17 11:36 ABG Base Excess -4.8 mmol/L (-2.0-3.0) L 09/09/17 Unknown ABG Hemoglobin 8.0 gm/dl (12.0-16.0) L 09/09/17 Unknown ABG Carboxyhemoglobin 2.0 % (0.0-5.0) 09/09/17 Unknown ABG Methemoglobin 0.3 % (0.0-1.5) 09/09/17 Unknown VBG pH 7.462 (7.320-7.420) H 08/08/17 14:52 Oxyhemoglobin 94.9 % (95.0-99.0) L 09/09/17 Unknown FiO2 30 % 09/13/17 11:36 Sodium 142 mmol/L (137-145) 10/02/17 05:00 Potassium 4.2 mmol/L (3.6-5.0) 10/02/17 05:00 Chloride 99.9 mmol/L (98-107) 10/02/17 05:00 Carbon Dioxide 22 mmol/L (22-30) 10/02/17 05:00 Anion Gap 24 mmol/L 10/02/17 05:00 BUN 108 mg/dL (7-17) H 10/02/17 05:00 Creatinine 2.5 mg/dL (0.7-1.2) H 10/02/17 05:00 Estimated GFR 24 ml/min 10/02/17 05:00 BUN/Creatinine Ratio 43 % 10/02/17 05:00 Glucose 113 mg/dL (65-100) H 10/02/17 05:00 POC Glucose 189 (70-105) H 10/02/17 19:14 Lactic Acid 1.60 mmol/L (0.7-2.0) 08/17/17 11:20 Calcium 8.4 mg/dL (8.4-10.2) 10/02/17 05:00 Phosphorus 2.70 mg/dL (2.5-4.5) 10/02/17 05:00 Magnesium 1.80 mg/dL (1.7-2.3) 10/02/17 05:00 Iron 22 ug/dL (37-170) L 09/12/17 05:25 TIBC 81 mcg/dL (250-450) L 09/12/17 05:25 Ferritin > 2000.0 ng/mL (13.0-400.0) H 09/12/17 05:25 Total Bilirubin 0.70 mg/dL (0.1-1.2) 09/22/17 03:37 Direct Bilirubin 0.2 mg/dL (0-0.2) 08/08/17 14:11 Indirect Bilirubin 0.3 mg/dL 08/08/17 14:11 AST 33 units/L (5-40) 09/22/17 03:37 ALT 16 units/L (7-56) 09/22/17 03:37 Alkaline Phosphatase 311 units/L (35-129) H 09/22/17 03:37 Ammonia 25.0 umol/L (25-60) 08/08/17 14:52 Total Creatine Kinase 20 units/L (30-135) L 09/16/17 05:30 Troponin T 0.132 ng/mL (0.00-0.029) H* 08/09/17 13:25 C-Reactive Protein 2.80 mg/dL (0.00-1.30) H 09/06/17 05:30 NT-Pro-B Natriuret Pep 6156 pg/mL (0-900) H 08/08/17 14:11 Total Protein 4.4 g/dL (6.3-8.2) L 09/22/17 03:37 Albumin 2.0 g/dL (3.9-5) L 09/22/17 03:37 Albumin/Globulin Ratio 0.8 % 09/22/17 03:37 Triglycerides 180 mg/dL (2-149) H 09/03/17 04:00 Cholesterol 91 mg/dL (50-199) 08/08/17 21:23 LDL Cholesterol Direct 53 mg/dL (50-130) 08/08/17 21:23 HDL Cholesterol 26 mg/dL (40-59) L 08/08/17 21:23 Cholesterol/HDL Ratio 3.50 % 08/08/17 21:23 Amylase 45 units/L (27-131) 08/16/17 09:50 Lipase 34 units/L (13-60) 08/16/17 09:50 TSH 6.580 mlU/mL (0.270-4.200) H 08/08/17 14:22 Free T4 1.46 ng/dL (0.76-1.46) 08/08/17 14:22 Total Cortisol 28.3 mcg/dL () 09/13/17 12:50 Urine Color Yellow (Yellow) 08/08/17 20:15 Urine Turbidity Turbid (Clear) 08/08/17 20:15 Urine pH 8.0 (5.0-7.0) H 08/08/17 20:15 Ur Specific [place] 1.015 (1.003-1.030) 08/08/17 20:15 Urine Protein 100 mg/dl mg/dL (Negative) 08/08/17 20:15 Urine Glucose (UA) Neg mg/dL (Negative) 08/08/17 20:15 Urine Ketones Neg mg/dL (Negative) 08/08/17 20:15 Urine Blood Mod (Negative) 08/08/17 20:15 Urine Nitrite Neg (Negative) 08/08/17 20:15 Urine Bilirubin Neg (Negative) 08/08/17 20:15 Urine Urobilinogen < 2.0 mg/dL (<2.0) 08/08/17 20:15 Ur Leukocyte Esterase Lg (Negative) 08/08/17 20:15 Urine WBC (Auto) 24.0 /HPF (0.0-6.0) H 08/08/17 20:15 Urine RBC (Auto) 3.0 /HPF (0.0-6.0) 08/08/17 20:15 U Epithel Cells (Auto) 3.0 /HPF (0-13.0) 08/08/17 20:15 Urine Bacteria (Auto) 4+ /HPF (Negative) 08/08/17 20:15 Urine Mucus 3+ /HPF 08/08/17 20:15 Fluid Type Peritoneal 08/08/17 18:18 Fluid Color Straw 08/08/17 18:18 Fluid Appearance Clear 08/08/17 18:18 Fluid pH 7.74 08/08/17 18:18 Fluid WBC 4 /mm3 08/08/17 18:18 Fluid RBC 1 /mm3 08/08/17 18:18 Fluid Seg Neutrophils 12 % 08/08/17 18:18 Fluid Lymphocytes 0 % 08/08/17 18:18 Fluid Reactive Lymphs 0 % 08/08/17 18:18 Fluid Monocytes 1 % 08/08/17 18:18 Fluid Eosinophils 0 % 08/08/17 18:18 Fluid Basophils 0 % 08/08/17 18:18 Fluid Glucose 315 mg/dL (40-70) H 08/08/17 18:18 Random Vancomycin 19.5 ug/mL (0-40.0) 08/22/17 03:40 Hep Bs Antigen Non-reactive (Negative) 08/22/17 03:40 Hepatitis C Antibody Non-reactive (NonReactive) 08/22/17 03:40 Miscellaneous Test Flexitest 1 H 09/06/17 09:57 Blood Type O POSITIVE 09/27/17 08:58 Antibody Screen Negative 09/27/17 08:58 VAN Antibody Screen Negative 09/07/17 17:07 Crossmatch See Detail 09/27/17 08:58
[2017-10-02] MEDS ORDERED: INTRALIPID 20% 250 ML IV SCH (20:00)
[2017-10-02] MEDS ORDERED: TPN ADULT 1,800 ML IV SCH (20:00)
--- NOTE | 2017-10-02 21:54 | Progress Note ---
Assessment and Plan - Patient Problems (1) Leukocytosis Current Visit: Yes Status: Acute Qualifiers: Leukocytosis type: L Plan to address problem: See notes above. make sure that PD access is clean also. see notes. Probably infection from the infected PD catheter. improving. back up again. up/down continue to monitor. it continuos to rise. still high. improved. Back up. Now improving again. still in the same range as yesterday.. worse today. 37,000 59,000 61.9 63,000. 39,000 today. 28,000. 23,000 Down to 18,000 (2) Anemia Current Visit: Yes Status: Acute Qualifiers: Anemia type: A Iron deficiency anemia type: I Vitamin B12 deficiency anemia type: V Folate deficiency anemia type: F Bone marrow failure anemia type: B Hemolytic anemia type: H Other causes of anemia: O Chronic kidney disease stage: C Plan to address problem: see notes , monitor labs,. see notes above. continue to monitor labs with you. blood transfusion. S/P replacement transfusion. fair. s/p 1unit transfusion. see notes. Still at 7.4 6.9, scheduled for replacement. Fairly stable at this time. continue to monitor. If less, or equal to 7.0, will need replacement transfusion, with HD. Fair at this time. 7.7 today 7.0, needs blood with next HD. 6.3, and transfused. better post transfusion. stable. (3) Acute respiratory failure Current Visit: Yes Status: Acute Qualifiers: Respiratory failure complication: R Plan to address problem: follow pulm. Subjective Date of service: 10/02/17 Principal diagnosis: respiratory failure, sepsis, shock rectal bleeding Interval history: Patient seen today/examined, labs reviewed, case d/w she, and family.complaints of abdominal pain. Patient resting in bed in the ICU, post vascular procedure. labs reviewed, Reactive thrombocytosis, anemia of CD, leukocytosis from infection vs inflamatory process. Patient seen/examined, in bed in the ICU, on the vent post surgery.Labs reviewed , notes reviewed. will continue to monitor labs/patient with you. Replacement transfusion, if /when indicated. patient seen/examined, SBP75, on pressors., lethargic, on the vent, labs reviewed, wbc 39,000 Patient seen/examined, case reviewed, d/w her sister at the bed side. Patient seen/examined, labs reviewed, notes reviewed. severe septic shock from infected PD catheter The high wbc is all infection related. H?H low, and may get replacement transfusion with the next HD. Prognosis remain quite poor. Patient seen/examined, extubated, now on V Mask. labs reviewed. patient seen/examined, resting in bed, still some what lethargic . labs reviewed. Patient seen/examined, resting in bed., some difficulty with breathing./ lethargic. patient seen/examined, resting in bed, looked much better labs reviewed, and fair over all. Patient seen/examined, resting in bed, labs reviewed, case d/w her. Patient seen/examined, resting in bed on BIPAP., labs reviewed. patient seen/examined, resting in bed, on Bipap.labs reviewed, fairly stable. Patient seen today, resting in bed, labs reviewed, H/H low, and transfusion already ordered. Patient seen/examined, resting in bed, transferred back to the unit, due to resp failure. She is now on venting mask. had blood replacement done. Patient seen/examined in the ICU.labs reviewed. patient intubated this am. patient resting in bed.no new issues. Patient seen/examined in the ICU, on vent,Not readily responsive. patient seen, resting in bed, no new cbc ready.will order for today. Patient seen, resting in vent, labs reviewed.notes reviewed also. patient seen/examined, resting on vent, had HD yesterday, and today., labs reviewed. Patient seen, resting in bed, labs reviewed.fairly stable labs, except the wbc. Patient seen/examined, rtesting in bed on the vent.Labs reviewed, wbc still elevated, Hgb dropped slightly. Patient seen/examined, labs reviewed, hgb 7.3, if 7.0 or less, will replace .unless otherwise indicated. Patient seen/examined, alert but lethargic.sedation drip turned down.she is s/p 1unit PRBC replacement with HD today. Patient seen/examined, labs reviewed, hgb still not quite enough at 7.5, perhaps with the next HD,can use 1-2 units. Patient seen/examined, resting in bed, trached, labs re viewed. Patient seen/examined, resting in bed, responds to name calling, SBP99, labs reviewed, Hgb 6.9, PRBC replacement ordered by primary. Patient seen/examined, in bed/trach, NGT., alert/lethargic. Patient seen/examined, resting in bed, still lethargic, labs reviewed, and still fair.Will continue to follow you. Patient seen/examined, resting in bed, labs reviewed. HD in progress.She is now getting daily HD.Labs reviewed, and still fair. Patient seen/examined, resting in bed, less lethargic/less toxic looking. labs have improved. Patient seen/examined, labs reviewed, fair, case d/w her spouse at the bed side. Patient seen/examined, resting ok in bed, alert, NAD, HD in progress.Labs reviewed, and WBC 27,000, Hgb 7.8. Patient seen/examined, resting in bed in the ICU, NAD.labs reviewed, and fair. Patient seen/examined, resting in bed, labs reviewed, WBC back up,to37,000, and Hgb down to 7.3, transfusion will be needed ,if hgb less, or equal to 7.0 Patient seen/examined, resting in bed in the ICU, alert, lethargic, labs reviewed, and fair. She remains on 5mics of levophed., Temp 100. Patient seen/examined in the ICU, alert, Labs reviewed, WBC 59,000. Patient seen/examined, resting in bed, labs reviewed, WBC up to 61.9,000, Hgb 7.0, and may benefit from PRBC replacement of 2units with HD. Patient seen/examined, resting in bed, easily awoken.Hgb low at 6.3, replaced earlier with HD today.will need repeat labs in am. Patient seen/examined today, resting in bed in the ICU, labs reviewed, WBC down again to 39,000., H/H stable, post transfusion. Patient seen/examined, labs reviewed, case d/w her spouse at the bed side. WBC down to 28,000. patient seen/examined, resting in bed, more alert today, wbc better. Patient seen/examined, resting in bed, labs reviewed, case d/w her family at the bed side in the ICU. she is alert, WBC still down at 23,000 Patient seen, resting in bed, labs reviewed, and fair, including the WBC. Objective - Constitutional Vitals: Vital Signs - 12hr 10/02/17 10/02/17 10/02/17 10:00 10:15 10:20 Temperature Pulse Rate 107 H 110 H Pulse Rate [ From Monitor] Respiratory 33 H 35 H Rate Blood Pressure 94/43 92/43 O2 Sat by Pulse 98 99 Oximetry O2 Sat by Pulse Oximetry [ Anterior Bilateral Throughout] O2 Sat by Pulse 99 Oximetry [ Assessment] 10/02/17 10/02/17 10/02/17 10:30 10:45 11:00 Temperature Pulse Rate 112 H 108 H 108 H Pulse Rate [ From Monitor] Respiratory 33 H 33 H 34 H Rate Blood Pressure 91/41 84/43 84/45 O2 Sat by Pulse 98 98 98 Oximetry O2 Sat by Pulse Oximetry [ Anterior Bilateral Throughout] O2 Sat by Pulse Oximetry [ Assessment] 10/02/17 10/02/17 10/02/17 11:15 11:30 11:45 Temperature Pulse Rate 108 H 110 H 107 H Pulse Rate [ From Monitor] Respiratory 31 H 32 H 32 H Rate Blood Pressure 87/46 90/46 87/44 O2 Sat by Pulse 99 99 99 Oximetry O2 Sat by Pulse Oximetry [ Anterior Bilateral Throughout] O2 Sat by Pulse Oximetry [ Assessment] 10/02/17 10/02/17 10/02/17 12:00 12:15 12:30 Temperature 98.3 F Pulse Rate 105 H 105 H 105 H Pulse Rate [ 105 H From Monitor] Respiratory 34 H 32 H 36 H Rate Blood Pressure 92/45 92/47 87/45 O2 Sat by Pulse 98 98 Oximetry O2 Sat by Pulse Oximetry [ Anterior Bilateral Throughout] O2 Sat by Pulse Oximetry [ Assessment] 10/02/17 10/02/17 10/02/17 12:45 13:01 13:15 Temperature Pulse Rate 118 H 107 H 111 H Pulse Rate [ From Monitor] Respiratory 32 H 35 H 36 H Rate Blood Pressure 123/79 85/50 105/58 O2 Sat by Pulse 99 98 99 Oximetry O2 Sat by Pulse Oximetry [ Anterior Bilateral Throughout] O2 Sat by Pulse Oximetry [ Assessment] 10/02/17 10/02/17 10/02/17 13:30 13:45 13:50 Temperature 98.3 F Pulse Rate 106 H 103 H 98 H Pulse Rate [ From Monitor] Respiratory 36 H 34 H 25 H Rate Blood Pressure 100/48 82/42 96/54 O2 Sat by Pulse 99 100 Oximetry O2 Sat by Pulse 100 Oximetry [ Anterior Bilateral Throughout] O2 Sat by Pulse Oximetry [ Assessment] 10/02/17 10/02/17 10/02/17 14:00 14:15 14:16 Temperature Pulse Rate 105 H 104 H 99 H Pulse Rate [ From Monitor] Respiratory 35 H 31 H Rate Blood Pressure 96/51 108/57 108/57 O2 Sat by Pulse 98 Oximetry O2 Sat by Pulse Oximetry [ Anterior Bilateral Throughout] O2 Sat by Pulse Oximetry [ Assessment] 10/02/17 10/02/17 10/02/17 14:30 14:45 15:00 Temperature Pulse Rate 103 H 105 H 105 H Pulse Rate [ From Monitor] Respiratory 25 H 24 25 H Rate Blood Pressure 92/49 90/32 91/37 O2 Sat by Pulse 99 100 Oximetry O2 Sat by Pulse Oximetry [ Anterior Bilateral Throughout] O2 Sat by Pulse Oximetry [ Assessment] 10/02/17 10/02/17 10/02/17 15:05 15:15 15:21 Temperature Pulse Rate 105 H 109 H 112 H Pulse Rate [ From Monitor] Respiratory 25 H Rate Blood Pressure 91/37 73/20 80/37 O2 Sat by Pulse Oximetry O2 Sat by Pulse Oximetry [ Anterior Bilateral Throughout] O2 Sat by Pulse Oximetry [ Assessment] 10/02/17 10/02/17 10/02/17 15:31 15:45 15:46 Temperature Pulse Rate 103 H 107 H 110 H Pulse Rate [ From Monitor] Respiratory 27 H 28 H Rate Blood Pressure 88/60 83/59 83/59 O2 Sat by Pulse 100 Oximetry O2 Sat by Pulse Oximetry [ Anterior Bilateral Throughout] O2 Sat by Pulse Oximetry [ Assessment] 10/02/17 10/02/17 10/02/17 16:00 16:01 16:05 Temperature 98.3 F Pulse Rate 114 H 109 H 106 H Pulse Rate [ 109 H From Monitor] Respiratory 29 H 29 H Rate Blood Pressure 67/38 67/38 71/41 O2 Sat by Pulse 99 99 Oximetry O2 Sat by Pulse Oximetry [ Anterior Bilateral Throughout] O2 Sat by Pulse Oximetry [ Assessment] 10/02/17 10/02/17 10/02/17 16:15 16:30 16:45 Temperature Pulse Rate 106 H 111 H 105 H Pulse Rate [ From Monitor] Respiratory 27 H 30 H 27 H Rate Blood Pressure 83/59 102/64 100/74 O2 Sat by Pulse 99 97 98 Oximetry O2 Sat by Pulse Oximetry [ Anterior Bilateral Throughout] O2 Sat by Pulse Oximetry [ Assessment] 10/02/17 10/02/17 10/02/17 16:47 17:00 17:01 Temperature Pulse Rate 108 H 107 H 113 H Pulse Rate [ From Monitor] Respiratory 29 H Rate Blood Pressure 100/74 112/61 100/74 O2 Sat by Pulse Oximetry O2 Sat by Pulse Oximetry [ Anterior Bilateral Throughout] O2 Sat by Pulse Oximetry [ Assessment] 10/02/17 10/02/17 10/02/17 17:05 17:15 17:31 Temperature Pulse Rate 112 H 110 H Pulse Rate [ From Monitor] Respiratory 30 H 31 H Rate Blood Pressure 103/63 101/64 O2 Sat by Pulse 100 100 Oximetry O2 Sat by Pulse Oximetry [ Anterior Bilateral Throughout] O2 Sat by Pulse 98 Oximetry [ Assessment] 10/02/17 10/02/17 10/02/17 17:32 17:45 17:52 Temperature 98.3 F Pulse Rate 110 H 109 H 109 H Pulse Rate [ From Monitor] Respiratory 33 H 26 H Rate Blood Pressure 101/64 101/64 114/44 O2 Sat by Pulse 100 Oximetry O2 Sat by Pulse 100 Oximetry [ Anterior Bilateral Throughout] O2 Sat by Pulse Oximetry [ Assessment] 10/02/17 10/02/17 10/02/17 18:01 18:15 18:30 Temperature Pulse Rate 112 H 118 H 110 H Pulse Rate [ From Monitor] Respiratory 30 H 32 H 30 H Rate Blood Pressure 128/54 126/60 119/57 O2 Sat by Pulse 98 82 L 100 Oximetry O2 Sat by Pulse Oximetry [ Anterior Bilateral Throughout] O2 Sat by Pulse Oximetry [ Assessment] 10/02/17 10/02/17 10/02/17 18:45 19:01 19:15 Temperature Pulse Rate 112 H 112 H 111 H Pulse Rate [ From Monitor] Respiratory 30 H 30 H 25 H Rate Blood Pressure 121/65 116/62 102/56 O2 Sat by Pulse 99 99 92 Oximetry O2 Sat by Pulse Oximetry [ Anterior Bilateral Throughout] O2 Sat by Pulse Oximetry [ Assessment] 10/02/17 10/02/17 10/02/17 19:30 20:00 20:22 Temperature 100.5 F H Pulse Rate 111 H 106 H Pulse Rate [ From Monitor] Respiratory 27 H Rate Blood Pressure 100/55 115/47 O2 Sat by Pulse 100 Oximetry O2 Sat by Pulse Oximetry [ Anterior Bilateral Throughout] O2 Sat by Pulse Oximetry [ Assessment] General appearance: Present: mild distress - EENT Eyes: PERRL, EOM intact ENT: hearing intact, clear oral mucosa Ears: bilateral: normal - Neck Neck: supple, normal ROM - Respiratory Respiratory: bilateral: diminished, rhonchi - Breasts Breasts: deferred - Cardiovascular Rhythm: regular Heart Sounds: Present: S1 & S2. Absent: gallop, rub Extremities: pulses intact, No edema, normal color, Full ROM - Gastrointestinal General gastrointestinal: Present: soft, non-tender, non-distended, normal bowel sounds - Genitourinary Female genitourinary: deferred - Integumentary Integumentary: clear, warm, dry - Musculoskeletal Musculoskeletal: 1, strength equal bilaterally - Neurologic Neurologic: moves all extremities - Psychiatric Psychiatric: appropriate mood/affect - Labs CBC & Chem 7: 10/02/17 10:05 10/02/17 05:00 Labs: Abnormal lab results 10/01/17 10/01/17 10/02/17 Range/Units 12:29 17:46 05:00 WBC (4.5-11.0) K/mm3 RBC (3.65-5.03) M/mm3 Hgb (10.1-14.3) gm/dl Hct (30.3-42.9) % RDW (13.2-15.2) % Lymphocytes % (Manual) (13.4-35.0) % Monocytes % (Manual) (0.0-7.3) % Seg Neutrophils # Man (1.8-7.7) K/mm3 Lymphocytes # (Manual) (1.2-5.4) K/mm3 Monocytes # (Manual) (0.0-0.8) K/mm3 BUN 108 H (7-17) mg/dL Creatinine 2.5 H (0.7-1.2) mg/dL Glucose 113 H (65-100) mg/dL POC Glucose 191 H 56 L (70-105) 10/02/17 10/02/17 10/02/17 Range/Units 05:27 10:05 11:57 WBC 18.1 H (4.5-11.0) K/mm3 RBC 2.67 L (3.65-5.03) M/mm3 Hgb 8.0 L (10.1-14.3) gm/dl Hct 24.1 L (30.3-42.9) % RDW 17.1 H (13.2-15.2) % Lymphocytes % (Manual) 5.0 L (13.4-35.0) % Monocytes % (Manual) 17.0 H (0.0-7.3) % Seg Neutrophils # Man 12.5 H (1.8-7.7) K/mm3 Lymphocytes # (Manual) 0.9 L (1.2-5.4) K/mm3 Monocytes # (Manual) 3.1 H (0.0-0.8) K/mm3 BUN (7-17) mg/dL Creatinine (0.7-1.2) mg/dL Glucose (65-100) mg/dL POC Glucose 120 H 162 H (70-105) 10/02/17 Range/Units 19:14 WBC (4.5-11.0) K/mm3 RBC (3.65-5.03) M/mm3 Hgb (10.1-14.3) gm/dl Hct (30.3-42.9) % RDW (13.2-15.2) % Lymphocytes % (Manual) (13.4-35.0) % Monocytes % (Manual) (0.0-7.3) % Seg Neutrophils # Man (1.8-7.7) K/mm3 Lymphocytes # (Manual) (1.2-5.4) K/mm3 Monocytes # (Manual) (0.0-0.8) K/mm3 BUN (7-17) mg/dL Creatinine (0.7-1.2) mg/dL Glucose (65-100) mg/dL POC Glucose 189 H (70-105)
[2017-10-03] MEDS: NOVOLOG SUB-Q SCH ×4 (00:05→19:17)
[2017-10-03] MEDS: LEVOPHED 8 MG in NACL 0.9% 250ML 242 ML IV SCH ×2 (05:16→17:27)
[2017-10-03 06:33] LABS: Hematocrit 24.9 % (30.3-42.9); Mean Corpuscular HGB Conc 32 % (30-34); Mean Corpuscular Hemoglobin 29 pg (28-32); Mean Corpuscular Volume 90 fl (79-97); Platelet Count 298 K/mm3 (140-440); Red Blood Count 2.76 M/mm3 (3.65-5.03); Red Cell Distribution Width 17.1 % (13.2-15.2); White Blood Count 16.2 K/mm3 (4.5-11.0)
--- NOTE | 2017-10-03 08:33 | Progress Note ---
Assessment and Plan 1. ESRD: Continue HD on MWF. Isolated UF on TTS as needed / tolerated. Monitor lytes. S/p switched from PD. 2. Anemia: S/p multiple units of PRBC. Patient continues to drop Hb level. Epogen on MWF. 3. Hypotension: Remain on Levophed. Continue Midodrine. 4. Volume overload: UF as tolerated. 5. Acute respiratory failure: On the vent. 6. Sepsis/Fungemia: Plan to remove the dialysis catheter. 7. Gastric perforation and SBO: S/p ex lap, repair of enterotomy. Colonic perforation: S/p ex lap, transverse colon resection, colostomy creation. Abdominal Wound leak: S/p ex lap, abdominal wash out and abdominal wall closure. Subjective Date of service: 10/03/17 Principal diagnosis: respiratory failure, sepsis, shock rectal bleeding Interval history: Patient was seen and examined at the bedside. Remain on the vent. Objective - Vital Signs Vital signs: Vital Signs - 12hr 10/02/17 10/02/17 10/02/17 20:45 21:00 21:15 Temperature Pulse Rate 111 H 106 H 110 H Respiratory 29 H 25 H 32 H Rate Blood Pressure 114/47 109/51 105/50 O2 Sat by Pulse 100 100 100 Oximetry 10/02/17 10/02/17 10/02/17 21:30 21:45 22:00 Temperature Pulse Rate 105 H 101 H 107 H Respiratory 20 23 19 Rate Blood Pressure 106/58 108/49 107/54 O2 Sat by Pulse 100 100 100 Oximetry 10/02/17 10/02/17 10/02/17 22:15 22:30 22:45 Temperature Pulse Rate 107 H 109 H 107 H Respiratory 26 H 16 24 Rate Blood Pressure 103/54 110/49 101/57 O2 Sat by Pulse 100 100 100 Oximetry 10/02/17 10/02/17 10/02/17 23:00 23:15 23:30 Temperature Pulse Rate 103 H 105 H 104 H Respiratory 20 21 22 Rate Blood Pressure 105/53 105/52 101/50 O2 Sat by Pulse 99 98 98 Oximetry 10/02/17 10/03/17 10/03/17 23:45 00:00 00:15 Temperature 100.5 F H Pulse Rate 110 H 99 H 105 H Respiratory 31 H 25 H 26 H Rate Blood Pressure 119/50 92/51 102/54 O2 Sat by Pulse 93 96 94 Oximetry 10/03/17 10/03/17 10/03/17 00:30 00:45 00:50 Temperature Pulse Rate 108 H 107 H 112 H Respiratory 29 H 27 H Rate Blood Pressure 109/55 103/57 103/57 O2 Sat by Pulse 94 95 Oximetry 10/03/17 10/03/17 10/03/17 01:00 01:15 01:30 Temperature Pulse Rate 104 H 106 H 106 H Respiratory 24 23 19 Rate Blood Pressure 108/53 118/58 110/55 O2 Sat by Pulse 98 99 98 Oximetry 10/03/17 10/03/17 10/03/17 01:45 02:00 02:15 Temperature Pulse Rate 104 H 107 H 103 H Respiratory 27 H 25 H 22 Rate Blood Pressure 113/56 117/53 113/56 O2 Sat by Pulse 98 98 98 Oximetry 10/03/17 10/03/17 10/03/17 02:30 02:45 03:00 Temperature Pulse Rate 92 H 112 H 105 H Respiratory 21 27 H 23 Rate Blood Pressure 97/50 107/50 117/55 O2 Sat by Pulse 96 97 97 Oximetry 10/03/17 10/03/17 10/03/17 03:14 03:15 03:30 Temperature Pulse Rate 112 H 105 H 100 H Respiratory 24 23 Rate Blood Pressure 113/59 110/53 O2 Sat by Pulse 97 96 Oximetry 10/03/17 10/03/17 10/03/17 03:45 04:00 04:15 Temperature 101.0 F H Pulse Rate 109 H 107 H 107 H Respiratory 25 H 22 25 H Rate Blood Pressure 116/60 119/55 114/60 O2 Sat by Pulse 96 97 97 Oximetry 10/03/17 10/03/17 10/03/17 04:30 04:45 05:00 Temperature Pulse Rate 107 H 101 H 110 H Respiratory 25 H 24 27 H Rate Blood Pressure 121/55 129/51 123/57 O2 Sat by Pulse 98 96 96 Oximetry 10/03/17 10/03/17 10/03/17 05:15 05:30 05:45 Temperature Pulse Rate 113 H 103 H 108 H Respiratory 24 25 H 22 Rate Blood Pressure 121/55 118/60 117/56 O2 Sat by Pulse 97 98 98 Oximetry 10/03/17 10/03/17 10/03/17 05:55 06:01 07:51 Temperature 100.8 F H Pulse Rate 92 H 111 H Respiratory 14 Rate Blood Pressure 117/56 121/61 O2 Sat by Pulse 98 Oximetry - General Appearance General appearance: well-developed, appears stated age, obese, other (on vent, FiO2 25%, right IJ temp catheter) EENT: ATNC, PERRL Neck: other (trached) Respiratory: Present: Clear to Ascultation Cardiology: regular, S1S2, no murmurs Gastrointestinal: normoactive bowel sounds, obese, other (ostomy noted) Integumentary: no rash Neurologic: other (opens eyes) Musculoskeletal: other (1+ edema of LEs noted) - Lab 10/04/17 04:47 10/04/17 04:47 Most recent lab results ABG pH 7.323 pH Units (7.350-7.450) L 09/09/17 Unknown ABG pCO2 41.1 mm Hg 09/09/17 Unknown ABG pO2 94.1 mm Hg (80.0-90.0) H 09/09/17 Unknown ABG HCO3 20.9 mmol/L (20.0-26.0) 09/09/17 Unknown ABG O2 Saturation 97.2 % (95.0-99.0) 09/09/17 Unknown Calcium 8.4 mg/dL (8.4-10.2) 10/02/17 05:00 Phosphorus 2.70 mg/dL (2.5-4.5) 10/02/17 05:00 Magnesium 1.80 mg/dL (1.7-2.3) 10/02/17 05:00
[2017-10-03 08:36] LABS: Anisocytosis 1+; Basophils % (Manual) 0 % (0.0-1.8); Blastocytes % (Manual) 0 %; Diff Status Complete; Eosinophils % (Manual) 0 % (0.0-4.3); Hypochromasia Rare; Platelet Estimate Consistent w Auto; Polychromasia Rare; Schistocytes Rare
[2017-10-03] MEDS: PROAMATINE FEEDTUBE SCH ×3 (09:39→21:46)
[2017-10-03] MEDS: PROTONIX FEEDTUBE SCH (09:39)
[2017-10-03] MEDS: MYCAMINE 100 MG in NACL 0.9% 100 ML IV SCH (09:59)
[2017-10-03] MEDS: TYLENOL FEEDTUBE PRN (10:28)
[2017-10-03] MEDS: LEVEMIR SUB-Q SCH (10:28)
--- NOTE | 2017-10-03 10:42 | Progress Note ---
Assessment and Plan Assessment: 1) Sepsis with septic shock: worsening. New fever etiology-Candidemia 2) Initial Bowel obstruction / suspect ?gastric perforation ? peritonitis -S/P Exlap, G-tube placement, EGD, abdominal washout and removal of PD -OR findings - bowel obstruction due to entanglement of PD cath, abscess cavity in LUQ and ? suspect perforation of unclear location 3) Intiial CA-UTI: chronic ivan exchanged every 4 weeks and ureteral stents in place which are exchanged every 6 months 4) Paraplegia 5) ESRD on PD - now on HD 6) Recent pancreatitis 7) Penicillin allergy-has taken keflex w/o problems 8) Presumed Surgical wound infection / dehiscence ? 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 11) Anemia- severe- Hg 6.7 today 12) Colonic perforation -S/P exlap, transverse colectomy, right sided colostomy and wash out on 09/15 -?presumed leak -surgical wound + Kristine and MDR Acinetobacter 13) Small bowell enterotomy leak / peritonitis s/p wash out / biologic mesh placement / closure of small bowel enterotomy on 09/24 14) Candidemia on 09/30 Plan: -remove all central catheters, ok to place a PICC if PIVs cannot be placed -continue micafungin -repeat blood cultures today -obtain TTE r/o endocarditis -monitor fever -contact isolation -poor prognosis discussed with family Thank you Dr Frances for your consultation, will follow up with you. Ramya Lang MD Infectious Diseases Specialist [facility] ([facility] M [phone] O [phone] Subjective Date of service: 10/03/17 Principal diagnosis: respiratory failure, sepsis, shock rectal bleeding Interval history: Pt remains on the vent requiring more levophed at 10 mcg on TPN, fentanyl, continues with fever at 101. Microbiology: Blood cultures: 08/08 neg 08/12 neg 08/16 neg 08/20 neg 10/ neg 09/06 neg 09/12 neg 11/6 yeast 2 of 4 bottles Urine cultures: 08/08 10-100K skin grace Respiratory cultures: 08/30 tracheal asp MRSA Wound cultures: /2 Staph aureus and Kristine 10/ MRSA, E faecalis, Kristine albicans 09/20 MDR Acinetobacter and Kristine albicans Stool cultures: Other: 08/08 peritoneal fluid + [employer]/Diphteroids Current Antimicrobials: micafungin 10/02 Previous Antimicrobials: 08/10 levaquin 08/16 vancomycin 08/13 meropenem 08/16 fluconazole Micafungin 08/29 meropenem 08/29 zyvox 09/03 fluconazole 09/03 dapto 09/10 meropenem 09/09-09/22 micafungin 09/11-09/21meropenem 09/25 fluconazole 09/24 Objective - Exam Narrative Exam: General appearance: on the vent via trach diaphoretic lethargic tremors Eyes: anicteric sclerae, moist conjunctivae; no lid-lag; PERRLA HENT: Atraumatic; NGT Neck: Trach in place Lungs: moreno rhonchi CV: tachy Abdomen: soft, midline surgical wound + ostomy. MERVIN drains with minimal output, LLQ drain slightly seropurulent, LUQ drain serosanguenous. G tube to OSD with yellow output per surgical eval. Extremities: + peripheral edema + leg ulcer no drainage Skin: right groin old fem line wound no erythema, no drainage Psych: sedated. Neuro: sedated Lines: right IJ vas cath / Right IJ Nair 08/16 - Constitutional Vitals: Vital Signs Temp Pulse Resp BP Pulse Ox 100.8 F H 113 H 23 123/62 98 10/03/17 07:51 10/03/17 09:34 10/03/17 08:30 10/03/17 09:34 10/03/17 08:30 Temperature -Last 24 Hours Temperature 100.8 F Temperature 101.0 F Temperature 100.5 F Temperature 100.5 F Temperature 98.3 F Temperature 98.3 F Temperature 98.3 F Temperature 98.3 F - Labs CBC & Chem 7: 10/03/17 04:00 10/02/17 05:00 Labs: Abnormal lab results 10/02/17 10/02/17 10/02/17 Range/Units 10:05 11:57 19:14 WBC (4.5-11.0) K/mm3 RBC (3.65-5.03) M/mm3 Hgb (10.1-14.3) gm/dl Hct (30.3-42.9) % RDW (13.2-15.2) % Seg Neuts % (Manual) (40.0-70.0) % Lymphocytes % (Manual) 5.0 L (13.4-35.0) % Monocytes % (Manual) 17.0 H (0.0-7.3) % Seg Neutrophils # Man 12.5 H (1.8-7.7) K/mm3 Lymphocytes # (Manual) 0.9 L (1.2-5.4) K/mm3 Monocytes # (Manual) 3.1 H (0.0-0.8) K/mm3 POC Glucose 162 H 189 H (70-105) 10/02/17 10/03/17 10/03/17 Range/Units 23:50 04:00 06:14 WBC 16.2 H (4.5-11.0) K/mm3 RBC 2.76 L (3.65-5.03) M/mm3 Hgb 8.0 L (10.1-14.3) gm/dl Hct 24.9 L (30.3-42.9) % RDW 17.1 H (13.2-15.2) % Seg Neuts % (Manual) 71.0 H (40.0-70.0) % Lymphocytes % (Manual) 9.0 L (13.4-35.0) % Monocytes % (Manual) 17.0 H (0.0-7.3) % Seg Neutrophils # Man 11.5 H (1.8-7.7) K/mm3 Lymphocytes # (Manual) (1.2-5.4) K/mm3 Monocytes # (Manual) 2.8 H (0.0-0.8) K/mm3 POC Glucose 159 H 162 H (70-105) 10/03/17 Range/Units 10:05 WBC (4.5-11.0) K/mm3 RBC (3.65-5.03) M/mm3 Hgb (10.1-14.3) gm/dl Hct (30.3-42.9) % RDW (13.2-15.2) % Seg Neuts % (Manual) (40.0-70.0) % Lymphocytes % (Manual) (13.4-35.0) % Monocytes % (Manual) (0.0-7.3) % Seg Neutrophils # Man (1.8-7.7) K/mm3 Lymphocytes # (Manual) (1.2-5.4) K/mm3 Monocytes # (Manual) (0.0-0.8) K/mm3 POC Glucose 148 H (70-105)
[2017-10-03] MEDS: DILAUDID IV PRN ×2 (10:54→18:38)
--- NOTE | 2017-10-03 11:34 | Progress Note ---
Assessment and Plan 62 y/o female originally admitted with hypotension, now back to ICU secondary to worsening hypotension, concern for sepsis, with acute respiratory failure post-op from ex-lap for abdominal distention and possible ileus, now back from OR after worsening respiratory failure, requiring re-intubation and wash out of abdomen 1. Wean pressors for MAPs >60 2. HD per renal. 3. Daily PSV trials with hopes of doing 24 hour PSV trial. Rest on rate while on HD 4. Steroids have been discontinued, please attempt to not restart these as surgery feels it is impeding the healing of the abdominal wound 5. Started tube feeds 09/30 at 10, but already having residuals, will continue to monitor. 6. Once medical issues have concrete plan, should be ready for transfer to [facility] 7. Long discussions with ID, Renal and family. I have explained to everyone that this patient cannot be without any IV access and she cannot have peripheral access only as she is requiring TPN for nutrition and vasopressor therapy for several weeks now. I had requested a picc line and I personally spoke with the PICC nurse for today (10/03/17) and she states that there are contraindications to the PICC. I explained to her, as I have to every other individual involved in this case that the patient is vasopressor dependent, she requires TPN for nutrition, and all of her vital medications are IV and must go through a central line. The PICC team did not want to place a line, despite the fact that this patient will need intermediate manager access and will need to be stuck again. I have placed a left IJ and await for CXR to confirm placement. 8. Ultimately, overall prognosis here is extremely poor. I suggest that a family meeting be held to discuss realistic goals and what the future plan of care will be. With her still requiring pressors and now fungemic still needing TPN for nutrition, the likely canas of sepsis with shock developing is high and survival in this patient would be very very low. CCT [id number] Subjective Date of service: 10/03/17 Principal diagnosis: respiratory failure, sepsis, shock rectal bleeding Interval history: Febrile last night. Back up to 10mcgs of levophed but this happened after HD. Reviewed ID note and spoke with them and renal this am. Family at bedside and updated them. Objective Vital Signs - 12hr 10/02/17 10/02/17 10/03/17 23:30 23:45 00:00 Temperature 100.5 F H Pulse Rate 104 H 110 H 99 H Respiratory 22 31 H 25 H Rate Blood Pressure 101/50 119/50 92/51 O2 Sat by Pulse 98 93 96 Oximetry 10/03/17 10/03/17 10/03/17 00:15 00:30 00:45 Temperature Pulse Rate 105 H 108 H 107 H Respiratory 26 H 29 H 27 H Rate Blood Pressure 102/54 109/55 103/57 O2 Sat by Pulse 94 94 95 Oximetry 10/03/17 10/03/17 10/03/17 00:50 01:00 01:15 Temperature Pulse Rate 112 H 104 H 106 H Respiratory 24 23 Rate Blood Pressure 103/57 108/53 118/58 O2 Sat by Pulse 98 99 Oximetry 10/03/17 10/03/17 10/03/17 01:30 01:45 02:00 Temperature Pulse Rate 106 H 104 H 107 H Respiratory 19 27 H 25 H Rate Blood Pressure 110/55 113/56 117/53 O2 Sat by Pulse 98 98 98 Oximetry 10/03/17 10/03/17 10/03/17 02:15 02:30 02:45 Temperature Pulse Rate 103 H 92 H 112 H Respiratory 22 21 27 H Rate Blood Pressure 113/56 97/50 107/50 O2 Sat by Pulse 98 96 97 Oximetry 10/03/17 10/03/17 10/03/17 03:00 03:14 03:15 Temperature Pulse Rate 105 H 112 H 105 H Respiratory 23 24 Rate Blood Pressure 117/55 113/59 O2 Sat by Pulse 97 97 Oximetry 10/03/17 10/03/17 10/03/17 03:30 03:45 04:00 Temperature 101.0 F H Pulse Rate 100 H 109 H 107 H Respiratory 23 25 H 22 Rate Blood Pressure 110/53 116/60 119/55 O2 Sat by Pulse 96 96 97 Oximetry 10/03/17 10/03/17 10/03/17 04:15 04:30 04:45 Temperature Pulse Rate 107 H 107 H 101 H Respiratory 25 H 25 H 24 Rate Blood Pressure 114/60 121/55 129/51 O2 Sat by Pulse 97 98 96 Oximetry 10/03/17 10/03/17 10/03/17 05:00 05:15 05:30 Temperature Pulse Rate 110 H 113 H 103 H Respiratory 27 H 24 25 H Rate Blood Pressure 123/57 121/55 118/60 O2 Sat by Pulse 96 97 98 Oximetry 10/03/17 10/03/17 10/03/17 05:45 05:55 06:01 Temperature Pulse Rate 108 H 92 H 111 H Respiratory 22 14 Rate Blood Pressure 117/56 117/56 121/61 O2 Sat by Pulse 98 98 Oximetry 10/03/17 10/03/17 10/03/17 06:15 06:30 06:45 Temperature Pulse Rate 95 H 101 H 105 H Respiratory 20 25 H 25 H Rate Blood Pressure 107/47 116/50 122/56 O2 Sat by Pulse 98 98 98 Oximetry 10/03/17 10/03/17 10/03/17 07:00 07:15 07:30 Temperature Pulse Rate 106 H 91 H 110 H Respiratory 27 H 21 27 H Rate Blood Pressure 112/59 99/52 126/64 O2 Sat by Pulse 98 99 99 Oximetry 10/03/17 10/03/17 10/03/17 07:45 07:51 08:00 Temperature 100.8 F H Pulse Rate 105 H 107 H Respiratory 30 H 27 H Rate Blood Pressure 123/53 118/60 O2 Sat by Pulse 99 99 Oximetry 10/03/17 10/03/17 10/03/17 08:15 08:30 09:34 Temperature Pulse Rate 111 H 113 H 113 H Respiratory 29 H 23 Rate Blood Pressure 125/67 123/62 123/62 O2 Sat by Pulse 98 98 Oximetry Constitutional: no acute distress, lethargic Eyes: non-icteric ENT: oropharynx dry Neck: supple, other (trach in position, no bleeding) Effort: normal Ascultation: Bilateral: clear ( ), diminished breath sounds Cardiovascular: regular rate and rhythm (no mrg) Gastrointestinal: absent bowel sounds, non-tender, other (abdominal incision with dressing , obese. Drain in place, no bleeding; ostomy with brown stool) Integumentary: normal Extremities: no cyanosis, pink and warm, edema Neurologic: non-focal exam, pupils equal and round Psychiatric: mood appropriate, affect normal CBC and BMP: 10/03/17 04:00 10/02/17 05:00 ABG, PT/INR, D-dimer: ABG POC ABG pH 7.347 (7.35-7.45) L 09/13/17 11:36 ABG pH 7.323 pH Units (7.350-7.450) L 09/09/17 Unknown POC ABG pCO2 34.3 (35-45) L 09/13/17 11:36 ABG pCO2 41.1 mm Hg 09/09/17 Unknown POC ABG pO2 134 (80-105) H 09/13/17 11:36 ABG pO2 94.1 mm Hg (80.0-90.0) H 09/09/17 Unknown POC ABG HCO3 18.8 09/13/17 11:36 POC ABG Total CO2 20 09/13/17 11:36 POC ABG O2 Sat 99 09/13/17 11:36 ABG O2 Saturation 97.2 % (95.0-99.0) 09/09/17 Unknown PT/INR, D-dimer PT 14.9 Sec. (12.2-14.9) 09/21/17 07:00 INR 1.11 (0.87-1.13) 09/21/17 07:00 Abnormal lab findings: Abnormal Labs 08/08/17 08/08/17 08/09/17 21:23 21:31 11:19 WBC 15.7 H RBC 2.93 L Hgb 8.7 L Hct 26.8 L MCV MCH MCHC RDW 19.2 H Plt Count Lymph % (Auto) Lipscomb % (Auto) Lipscomb # Seg Neutrophils % Seg Neuts % (Manual) Lymphocytes % (Manual) Monocytes % (Manual) Nucleated RBC % Seg Neutrophils # Seg Neutrophils # Man Lymphocytes # (Manual) Monocytes # (Manual) Eosinophils # (Manual) Basophils # (Manual) PT INR POC ABG pH 7.490 H ABG pH POC ABG pCO2 POC ABG pO2 122 H ABG pO2 ABG O2 Saturation ABG Base Excess ABG Hemoglobin Oxyhemoglobin Sodium Potassium Chloride Carbon Dioxide BUN Creatinine Glucose POC Glucose Calcium Phosphorus Magnesium Iron TIBC Ferritin Total Bilirubin AST ALT Alkaline Phosphatase Total Creatine Kinase Troponin T 0.133 H* C-Reactive Protein Total Protein Albumin Triglycerides HDL Cholesterol 26 L Miscellaneous Test Crossmatch 08/09/17 08/10/17 08/10/17 13:25 04:45 04:45 WBC 15.5 H RBC 2.97 L Hgb 8.9 L Hct 27.0 L MCV MCH MCHC RDW 19.2 H Plt Count Lymph % (Auto) Lipscomb % (Auto) Lipscomb # Seg Neutrophils % Seg Neuts % (Manual) 73.0 H Lymphocytes % (Manual) 7.0 L Monocytes % (Manual) 14.0 H Nucleated RBC % Seg Neutrophils # Seg Neutrophils # Man 11.3 H Lymphocytes # (Manual) 1.1 L Monocytes # (Manual) 2.2 H Eosinophils # (Manual) Basophils # (Manual) 0.2 H PT INR POC ABG pH ABG pH POC ABG pCO2 POC ABG pO2 ABG pO2 ABG O2 Saturation ABG Base Excess ABG Hemoglobin Oxyhemoglobin Sodium Potassium 3.3 L Chloride 97.3 L Carbon Dioxide 21 L BUN 23 H Creatinine 6.5 H Glucose POC Glucose Calcium 7.3 L Phosphorus Magnesium Iron TIBC Ferritin Total Bilirubin AST ALT Alkaline Phosphatase 138 H Total Creatine Kinase Troponin T 0.132 H* C-Reactive Protein Total Protein 4.8 L Albumin 1.4 L Triglycerides HDL Cholesterol Miscellaneous Test Crossmatch 08/11/17 08/11/17 08/12/17 04:00 04:00 05:50 WBC 19.3 H RBC 3.10 L Hgb 9.5 L Hct 28.2 L MCV MCH MCHC RDW 19.2 H Plt Count 463 H Lymph % (Auto) 7.5 L Lipscomb % (Auto) 14.6 H Lipscomb # 2.8 H Seg Neutrophils % 77.0 H Seg Neuts % (Manual) Lymphocytes % (Manual) Monocytes % (Manual) Nucleated RBC % Seg Neutrophils # 14.8 H Seg Neutrophils # Man Lymphocytes # (Manual) Monocytes # (Manual) Eosinophils # (Manual) Basophils # (Manual) PT INR POC ABG pH ABG pH POC ABG pCO2 POC ABG pO2 ABG pO2 ABG O2 Saturation ABG Base Excess ABG Hemoglobin Oxyhemoglobin Sodium 136 L 136 L Potassium 3.3 L Chloride 96.3 L 96.6 L Carbon Dioxide BUN 26 H 26 H Creatinine 6.4 H 6.2 H Glucose 135 H 133 H POC Glucose Calcium 8.2 L Phosphorus Magnesium 1.30 L Iron TIBC Ferritin Total Bilirubin AST ALT Alkaline Phosphatase 139 H Total Creatine Kinase Troponin T C-Reactive Protein Total Protein 5.5 L Albumin 1.7 L Triglycerides HDL Cholesterol Miscellaneous Test Crossmatch 08/12/17 08/12/17 08/12/17 05:50 05:50 05:50 WBC 20.1 H RBC 3.06 L Hgb 9.3 L Hct 27.9 L MCV MCH MCHC RDW 18.4 H Plt Count 471 H Lymph % (Auto) [place]comb % (Auto) [place]comb # Seg Neutrophils % Seg Neuts % (Manual) 85.0 H Lymphocytes % (Manual) 8.0 L Monocytes % (Manual) Nucleated RBC % Seg Neutrophils # Seg Neutrophils # Man 17.1 H Lymphocytes # (Manual) Monocytes # (Manual) 1.0 H Eosinophils # (Manual) Basophils # (Manual) PT 15.2 H INR 1.14 H POC ABG pH ABG pH POC ABG pCO2 POC ABG pO2 ABG pO2 ABG O2 Saturation ABG Base Excess ABG Hemoglobin Oxyhemoglobin Sodium Potassium Chloride Carbon Dioxide BUN Creatinine Glucose POC Glucose Calcium Phosphorus Magnesium Iron TIBC Ferritin Total Bilirubin AST ALT Alkaline Phosphatase Total Creatine Kinase Troponin T C-Reactive Protein 28.90 H Total Protein Albumin Triglycerides HDL Cholesterol Miscellaneous Test Crossmatch 08/12/17 08/13/17 08/13/17 16:23 06:14 06:14 WBC 21.8 H RBC 3.11 L Hgb 9.4 L Hct 28.2 L MCV MCH MCHC RDW 18.2 H Plt Count 492 H Lymph % (Auto) [place]comb % (Auto) [place]comb # Seg Neutrophils % Seg Neuts % (Manual) 73.0 H Lymphocytes % (Manual) 2.0 L Monocytes % (Manual) 15 H Nucleated RBC % Seg Neutrophils # Seg Neutrophils # Man 15.9 H Lymphocytes # (Manual) 0.4 L Monocytes # (Manual) 2.4 H Eosinophils # (Manual) Basophils # (Manual) PT INR POC ABG pH ABG pH POC ABG pCO2 POC ABG pO2 ABG pO2 ABG O2 Saturation ABG Base Excess ABG Hemoglobin Oxyhemoglobin Sodium Potassium Chloride 96.2 L Carbon Dioxide BUN 28 H Creatinine 5.6 H Glucose 114 H POC Glucose Calcium Phosphorus Magnesium Iron TIBC Ferritin Total Bilirubin AST ALT Alkaline Phosphatase Total Creatine Kinase Troponin T C-Reactive Protein 26.10 H Total Protein Albumin Triglycerides HDL Cholesterol Miscellaneous Test Crossmatch 08/13/17 08/14/17 08/14/17 16:39 04:00 04:00 WBC 22.1 H RBC 3.25 L Hgb 9.9 L Hct 29.5 L MCV MCH MCHC RDW 17.9 H Plt Count 525 H Lymph % (Auto) [place]comb % (Auto) [place]comb # Seg Neutrophils % Seg Neuts % (Manual) 74.0 H Lymphocytes % (Manual) 8.0 L Monocytes % (Manual) 12.0 H Nucleated RBC % Seg Neutrophils # Seg Neutrophils # Man 16.4 H Lymphocytes # (Manual) Monocytes # (Manual) 2.7 H Eosinophils # (Manual) Basophils # (Manual) PT INR POC ABG pH ABG pH POC ABG pCO2 POC ABG pO2 ABG pO2 ABG O2 Saturation ABG Base Excess ABG Hemoglobin Oxyhemoglobin Sodium 134 L Potassium 3.3 L Chloride 93.3 L Carbon Dioxide BUN 27 H Creatinine 6.0 H Glucose 152 H POC Glucose 151 H Calcium Phosphorus Magnesium Iron TIBC Ferritin Total Bilirubin AST ALT Alkaline Phosphatase Total Creatine Kinase Troponin T C-Reactive Protein Total Protein Albumin Triglycerides HDL Cholesterol Miscellaneous Test Crossmatch 08/15/17 08/16/17 08/16/17 09:10 09:50 09:50 WBC 31.1 H RBC 3.21 L Hgb 9.6 L Hct 29.3 L MCV MCH MCHC RDW 18.1 H Plt Count 642 H Lymph % (Auto) Lipscomb % (Auto) Lipscomb # Seg Neutrophils % Seg Neuts % (Manual) 74.0 H Lymphocytes % (Manual) 4.0 L Monocytes % (Manual) 9.0 H Nucleated RBC % Seg Neutrophils # Seg Neutrophils # Man 23.0 H Lymphocytes # (Manual) Monocytes # (Manual) 2.8 H Eosinophils # (Manual) Basophils # (Manual) PT INR POC ABG pH ABG pH POC ABG pCO2 POC ABG pO2 ABG pO2 ABG O2 Saturation ABG Base Excess ABG Hemoglobin Oxyhemoglobin Sodium 136 L 136 L Potassium 3.5 L Chloride 97.6 L 94.9 L Carbon Dioxide BUN 27 H 28 H Creatinine 5.6 H 5.5 H Glucose 117 H 103 H POC Glucose Calcium Phosphorus Magnesium Iron TIBC Ferritin Total Bilirubin AST ALT Alkaline Phosphatase 137 H Total Creatine Kinase Troponin T C-Reactive Protein Total Protein 5.4 L Albumin 1.5 L Triglycerides HDL Cholesterol Miscellaneous Test Crossmatch 08/16/17 08/17/17 08/17/17 09:50 05:00 06:26 WBC RBC Hgb Hct MCV MCH MCHC RDW Plt Count Lymph % (Auto) Lipscomb % (Auto) [place]comb # Seg Neutrophils % Seg Neuts % (Manual) Lymphocytes % (Manual) Monocytes % (Manual) Nucleated RBC % Seg Neutrophils # Seg Neutrophils # Man Lymphocytes # (Manual) Monocytes # (Manual) Eosinophils # (Manual) Basophils # (Manual) PT INR POC ABG pH ABG pH POC ABG pCO2 POC ABG pO2 ABG pO2 ABG O2 Saturation ABG Base Excess ABG Hemoglobin Oxyhemoglobin Sodium 134 L Potassium 3.0 L Chloride 97.8 L Carbon Dioxide BUN 30 H Creatinine 5.3 H Glucose 147 H POC Glucose 165 H Calcium 7.5 L Phosphorus Magnesium Iron TIBC Ferritin Total Bilirubin AST ALT Alkaline Phosphatase Total Creatine Kinase Troponin T C-Reactive Protein 32.30 H Total Protein Albumin Triglycerides HDL Cholesterol Miscellaneous Test Crossmatch 08/17/17 08/17/17 08/17/17 10:56 11:20 11:20 WBC 39.1 H RBC 3.10 L Hgb 9.2 L Hct 28.6 L MCV MCH MCHC RDW 18.3 H Plt Count 580 H Lymph % (Auto) Lipscomb % (Auto) [place]comb # Seg Neutrophils % Seg Neuts % (Manual) 89.5 H Lymphocytes % (Manual) 3.5 L Monocytes % (Manual) Nucleated RBC % Seg Neutrophils # Seg Neutrophils # Man 35.0 H Lymphocytes # (Manual) Monocytes # (Manual) 2.5 H Eosinophils # (Manual) Basophils # (Manual) 0.2 H PT INR POC ABG pH 7.464 H ABG pH POC ABG pCO2 34.1 L POC ABG pO2 75 L ABG pO2 ABG O2 Saturation ABG Base Excess ABG Hemoglobin Oxyhemoglobin Sodium Potassium Chloride Carbon Dioxide BUN Creatinine Glucose POC Glucose Calcium Phosphorus Magnesium Iron TIBC Ferritin Total Bilirubin AST ALT Alkaline Phosphatase Total Creatine Kinase Troponin T C-Reactive Protein Total Protein Albumin Triglycerides HDL Cholesterol Miscellaneous Test Flexitest 1 H Crossmatch 08/17/17 08/17/17 08/17/17 11:20 16:57 20:20 WBC 34.4 H RBC 2.81 L Hgb 8.4 L Hct 26.0 L MCV MCH MCHC RDW 17.8 H Plt Count 455 H Lymph % (Auto) [place]comb % (Auto) [place]comb # Seg Neutrophils % Seg Neuts % (Manual) Lymphocytes % (Manual) 3.5 L Monocytes % (Manual) Nucleated RBC % 5.0 H Seg Neutrophils # Seg Neutrophils # Man 16.5 H Lymphocytes # (Manual) Monocytes # (Manual) 1.0 H Eosinophils # (Manual) Basophils # (Manual) PT 16.0 H INR 1.29 H POC ABG pH ABG pH POC ABG pCO2 POC ABG pO2 ABG pO2 ABG O2 Saturation ABG Base Excess ABG Hemoglobin Oxyhemoglobin Sodium 135 L Potassium 2.9 L* Chloride Carbon Dioxide 20 L BUN 32 H Creatinine 5.4 H Glucose 129 H POC Glucose Calcium 7.5 L Phosphorus Magnesium 1.50 L Iron TIBC Ferritin Total Bilirubin AST 85 H ALT Alkaline Phosphatase Total Creatine Kinase Troponin T C-Reactive Protein Total Protein 4.0 L D Albumin 1.6 L Triglycerides HDL Cholesterol Miscellaneous Test Crossmatch 08/17/17 08/17/17 08/18/17 20:54 23:47 04:26 WBC RBC Hgb Hct MCV MCH MCHC RDW Plt Count Lymph % (Auto) [place]comb % (Auto) [place]comb # Seg Neutrophils % Seg Neuts % (Manual) Lymphocytes % (Manual) Monocytes % (Manual) Nucleated RBC % Seg Neutrophils # Seg Neutrophils # Man Lymphocytes # (Manual) Monocytes # (Manual) Eosinophils # (Manual) Basophils # (Manual) PT INR POC ABG pH 7.557 H ABG pH POC ABG pCO2 23.1 L 29.0 L POC ABG pO2 187 H 148 H ABG pO2 ABG O2 Saturation ABG Base Excess ABG Hemoglobin Oxyhemoglobin Sodium Potassium Chloride Carbon Dioxide BUN Creatinine Glucose POC Glucose 188 H Calcium Phosphorus Magnesium Iron TIBC Ferritin Total Bilirubin AST ALT Alkaline Phosphatase Total Creatine Kinase Troponin T C-Reactive Protein Total Protein Albumin Triglycerides HDL Cholesterol Miscellaneous Test Crossmatch 08/18/17 08/18/17 08/18/17 05:51 11:44 17:07 WBC RBC Hgb Hct MCV MCH MCHC RDW Plt Count Lymph % (Auto) [place]comb % (Auto) [place]comb # Seg Neutrophils % Seg Neuts % (Manual) Lymphocytes % (Manual) Monocytes % (Manual) Nucleated RBC % Seg Neutrophils # Seg Neutrophils # Man Lymphocytes # (Manual) Monocytes # (Manual) Eosinophils # (Manual) Basophils # (Manual) PT INR POC ABG pH ABG pH POC ABG pCO2 POC ABG pO2 ABG pO2 ABG O2 Saturation ABG Base Excess ABG Hemoglobin Oxyhemoglobin Sodium Potassium Chloride Carbon Dioxide BUN Creatinine Glucose POC Glucose 202 H 195 H 182 H Calcium Phosphorus Magnesium Iron TIBC Ferritin Total Bilirubin AST ALT Alkaline Phosphatase Total Creatine Kinase Troponin T C-Reactive Protein Total Protein Albumin Triglycerides HDL Cholesterol Miscellaneous Test Crossmatch 08/18/17 08/18/17 08/18/17 23:45 Unknown Unknown WBC 39.0 H RBC 2.84 L Hgb 8.4 L Hct 26.5 L MCV MCH MCHC RDW 18.0 H Plt Count 476 H Lymph % (Auto) [place]comb % (Auto) [place]comb # Seg Neutrophils % Seg Neuts % (Manual) Lymphocytes % (Manual) 7.0 L Monocytes % (Manual) 10.0 H Nucleated RBC % 3.0 H Seg Neutrophils # Seg Neutrophils # Man 15.6 H Lymphocytes # (Manual) Monocytes # (Manual) 3.9 H Eosinophils # (Manual) Basophils # (Manual) PT INR POC ABG pH ABG pH POC ABG pCO2 POC ABG pO2 ABG pO2 ABG O2 Saturation ABG Base Excess ABG Hemoglobin Oxyhemoglobin Sodium Potassium Chloride Carbon Dioxide 19 L BUN 34 H Creatinine 5.6 H Glucose 201 H POC Glucose 163 H Calcium 7.8 L Phosphorus 1.90 L D Magnesium 1.60 L Iron TIBC Ferritin Total Bilirubin AST ALT Alkaline Phosphatase Total Creatine Kinase Troponin T C-Reactive Protein Total Protein Albumin Triglycerides HDL Cholesterol Miscellaneous Test Crossmatch 08/19/17 08/19/17 08/19/17 04:18 05:00 05:00 WBC 40.0 H RBC 2.46 L Hgb 7.3 L Hct 22.6 L MCV MCH MCHC RDW 18.1 H Plt Count Lymph % (Auto) [place]comb % (Auto) [place]comb # Seg Neutrophils % Seg Neuts % (Manual) Lymphocytes % (Manual) 8.0 L Monocytes % (Manual) Nucleated RBC % 2.0 H Seg Neutrophils # Seg Neutrophils # Man 16.4 H Lymphocytes # (Manual) Monocytes # (Manual) 1.2 H Eosinophils # (Manual) 1.2 H Basophils # (Manual) PT INR POC ABG pH 7.463 H ABG pH POC ABG pCO2 29.7 L POC ABG pO2 134 H ABG pO2 ABG O2 Saturation ABG Base Excess ABG Hemoglobin Oxyhemoglobin Sodium Potassium 5.1 H D Chloride Carbon Dioxide 20 L BUN 40 H Creatinine 5.3 H Glucose 128 H POC Glucose Calcium 7.8 L Phosphorus 1.90 L Magnesium Iron TIBC Ferritin Total Bilirubin AST ALT Alkaline Phosphatase Total Creatine Kinase Troponin T C-Reactive Protein Total Protein Albumin Triglycerides HDL Cholesterol Miscellaneous Test Crossmatch 08/19/17 08/19/17 08/19/17 05:19 07:37 09:52 WBC 45.0 H* RBC 2.50 L Hgb 7.5 L Hct 24.5 L MCV 98 H MCH MCHC RDW 18.4 H Plt Count Lymph % (Auto) [place]comb % (Auto) [place]comb # Seg Neutrophils % Seg Neuts % (Manual) 81.5 H Lymphocytes % (Manual) 4.0 L Monocytes % (Manual) Nucleated RBC % 1.0 H Seg Neutrophils # Seg Neutrophils # Man 36.7 H Lymphocytes # (Manual) Monocytes # (Manual) Eosinophils # (Manual) Basophils # (Manual) PT INR POC ABG pH ABG pH POC ABG pCO2 POC ABG pO2 ABG pO2 ABG O2 Saturation ABG Base Excess ABG Hemoglobin Oxyhemoglobin Sodium Potassium Chloride Carbon Dioxide BUN Creatinine Glucose POC Glucose 142 H Calcium Phosphorus Magnesium Iron TIBC Ferritin Total Bilirubin AST ALT Alkaline Phosphatase Total Creatine Kinase Troponin T C-Reactive Protein 34.20 H Total Protein Albumin Triglycerides HDL Cholesterol Miscellaneous Test Crossmatch 08/19/17 08/19/17 08/20/17 11:16 18:12 00:35 WBC RBC Hgb Hct MCV MCH MCHC RDW Plt Count Lymph % (Auto) [place]comb % (Auto) [place]comb # Seg Neutrophils % Seg Neuts % (Manual) Lymphocytes % (Manual) Monocytes % (Manual) Nucleated RBC % Seg Neutrophils # Seg Neutrophils # Man Lymphocytes # (Manual) Monocytes # (Manual) Eosinophils # (Manual) Basophils # (Manual) PT INR POC ABG pH ABG pH POC ABG pCO2 POC ABG pO2 ABG pO2 ABG O2 Saturation ABG Base Excess ABG Hemoglobin Oxyhemoglobin Sodium Potassium Chloride Carbon Dioxide BUN Creatinine Glucose POC Glucose 143 H 137 H 164 H Calcium Phosphorus Magnesium Iron TIBC Ferritin Total Bilirubin AST ALT Alkaline Phosphatase Total Creatine Kinase Troponin T C-Reactive Protein Total Protein Albumin Triglycerides HDL Cholesterol Miscellaneous Test Crossmatch 08/20/17 08/20/17 08/20/17 03:20 03:20 04:00 WBC 48.0 H* RBC 2.55 L Hgb 7.6 L Hct 23.4 L MCV MCH MCHC RDW 18.4 H Plt Count Lymph % (Auto) [place]comb % (Auto) [place]comb # Seg Neutrophils % Seg Neuts % (Manual) 90.0 H Lymphocytes % (Manual) 3.0 L Monocytes % (Manual) Nucleated RBC % Seg Neutrophils # Seg Neutrophils # Man 43.2 H Lymphocytes # (Manual) Monocytes # (Manual) 1.4 H Eosinophils # (Manual) 0.5 H Basophils # (Manual) PT INR POC ABG pH 7.499 H ABG pH POC ABG pCO2 29.1 L POC ABG pO2 ABG pO2 ABG O2 Saturation ABG Base Excess ABG Hemoglobin Oxyhemoglobin Sodium 135 L Potassium Chloride Carbon Dioxide BUN 28 H Creatinine 4.0 H Glucose 140 H POC Glucose Calcium 8.0 L Phosphorus 1.70 L Magnesium 1.60 L Iron TIBC Ferritin Total Bilirubin AST ALT Alkaline Phosphatase Total Creatine Kinase Troponin T C-Reactive Protein Total Protein Albumin Triglycerides HDL Cholesterol Miscellaneous Test Crossmatch 08/20/17 08/20/17 08/20/17 05:02 12:05 13:12 WBC RBC Hgb Hct MCV MCH MCHC RDW Plt Count Lymph % (Auto) [place] % (Auto) [place] # Seg Neutrophils % Seg Neuts % (Manual) Lymphocytes % (Manual) Monocytes % (Manual) Nucleated RBC % Seg Neutrophils # Seg Neutrophils # Man Lymphocytes # (Manual) Monocytes # (Manual) Eosinophils # (Manual) Basophils # (Manual) PT INR POC ABG pH 7.537 H ABG pH POC ABG pCO2 27.9 L POC ABG pO2 79 L ABG pO2 ABG O2 Saturation ABG Base Excess ABG Hemoglobin Oxyhemoglobin Sodium Potassium Chloride Carbon Dioxide BUN Creatinine Glucose POC Glucose 158 H 203 H Calcium Phosphorus Magnesium Iron TIBC Ferritin Total Bilirubin AST ALT Alkaline Phosphatase Total Creatine Kinase Troponin T C-Reactive Protein Total Protein Albumin Triglycerides HDL Cholesterol Miscellaneous Test Crossmatch 08/20/17 08/21/17 08/21/17 17:13 00:47 03:14 WBC RBC Hgb Hct MCV MCH MCHC RDW Plt Count Lymph % (Auto) [place]comb % (Auto) [place] # Seg Neutrophils % Seg Neuts % (Manual) Lymphocytes % (Manual) Monocytes % (Manual) Nucleated RBC % Seg Neutrophils # Seg Neutrophils # Man Lymphocytes # (Manual) Monocytes # (Manual) Eosinophils # (Manual) Basophils # (Manual) PT INR POC ABG pH 7.481 H ABG pH POC ABG pCO2 29.6 L POC ABG pO2 ABG pO2 ABG O2 Saturation ABG Base Excess ABG Hemoglobin Oxyhemoglobin Sodium Potassium Chloride Carbon Dioxide BUN Creatinine Glucose POC Glucose 188 H 109 H Calcium Phosphorus Magnesium Iron TIBC Ferritin Total Bilirubin AST ALT Alkaline Phosphatase Total Creatine Kinase Troponin T C-Reactive Protein Total Protein Albumin Triglycerides HDL Cholesterol Miscellaneous Test Crossmatch 08/21/17 08/21/17 08/21/17 05:05 06:50 06:50 WBC 44.7 H* RBC 2.41 L Hgb 7.1 L Hct 22.1 L MCV MCH MCHC RDW 18.3 H Plt Count Lymph % (Auto) [place]comb % (Auto) [place]comb # Seg Neutrophils % Seg Neuts % (Manual) 89.0 H Lymphocytes % (Manual) 0 L Monocytes % (Manual) Nucleated RBC % 1.0 H Seg Neutrophils # Seg Neutrophils # Man 39.8 H Lymphocytes # (Manual) 0.0 L Monocytes # (Manual) 1.3 H Eosinophils # (Manual) Basophils # (Manual) PT INR POC ABG pH ABG pH POC ABG pCO2 POC ABG pO2 ABG pO2 ABG O2 Saturation ABG Base Excess ABG Hemoglobin Oxyhemoglobin Sodium 135 L Potassium Chloride Carbon Dioxide BUN 39 H Creatinine 4.4 H Glucose 147 H POC Glucose 166 H Calcium 8.1 L Phosphorus Magnesium Iron TIBC Ferritin Total Bilirubin AST ALT < 5 L Alkaline Phosphatase 164 H Total Creatine Kinase Troponin T C-Reactive Protein Total Protein 4.7 L Albumin 1.4 L Triglycerides HDL Cholesterol Miscellaneous Test Crossmatch 08/21/17 08/21/17 08/21/17 08:00 12:21 17:02 WBC RBC Hgb Hct MCV MCH MCHC RDW Plt Count Lymph % (Auto) [place]comb % (Auto) [place] # Seg Neutrophils % Seg Neuts % (Manual) Lymphocytes % (Manual) Monocytes % (Manual) Nucleated RBC % Seg Neutrophils # Seg Neutrophils # Man Lymphocytes # (Manual) Monocytes # (Manual) Eosinophils # (Manual) Basophils # (Manual) PT INR POC ABG pH ABG pH POC ABG pCO2 POC ABG pO2 ABG pO2 ABG O2 Saturation ABG Base Excess ABG Hemoglobin Oxyhemoglobin Sodium Potassium Chloride Carbon Dioxide BUN Creatinine Glucose POC Glucose 147 H 135 H Calcium Phosphorus Magnesium Iron TIBC Ferritin Total Bilirubin AST ALT Alkaline Phosphatase Total Creatine Kinase Troponin T C-Reactive Protein Total Protein Albumin Triglycerides HDL Cholesterol Miscellaneous Test Crossmatch See Detail 08/21/17 08/22/1717 23:38 03:40 03:40 WBC 42.5 H* RBC 2.88 L Hgb 8.5 L Hct 26.3 L MCV MCH MCHC RDW 17.9 H Plt Count Lymph % (Auto) [place] % (Auto) [place] # Seg Neutrophils % Seg Neuts % (Manual) Lymphocytes % (Manual) 5.0 L Monocytes % (Manual) Nucleated RBC % Seg Neutrophils # Seg Neutrophils # Man 19.6 H Lymphocytes # (Manual) Monocytes # (Manual) 2.6 H Eosinophils # (Manual) Basophils # (Manual) PT INR POC ABG pH ABG pH POC ABG pCO2 POC ABG pO2 ABG pO2 ABG O2 Saturation ABG Base Excess ABG Hemoglobin Oxyhemoglobin Sodium Potassium 3.3 L D Chloride Carbon Dioxide BUN 27 H Creatinine 2.9 H Glucose 144 H POC Glucose 251 H Calcium 8.0 L Phosphorus 2.40 L Magnesium Iron TIBC Ferritin Total Bilirubin AST ALT Alkaline Phosphatase Total Creatine Kinase Troponin T C-Reactive Protein Total Protein Albumin Triglycerides HDL Cholesterol Miscellaneous Test Crossmatch 08/22/17 08/22/17 08/22/17 06:37 08:50 11:25 WBC RBC Hgb Hct MCV MCH MCHC RDW Plt Count Lymph % (Auto) [place] % (Auto) [place] # Seg Neutrophils % Seg Neuts % (Manual) Lymphocytes % (Manual) Monocytes % (Manual) Nucleated RBC % Seg Neutrophils # Seg Neutrophils # Man Lymphocytes # (Manual) Monocytes # (Manual) Eosinophils # (Manual) Basophils # (Manual) PT INR POC ABG pH ABG pH POC ABG pCO2 POC ABG pO2 ABG pO2 ABG O2 Saturation ABG Base Excess ABG Hemoglobin Oxyhemoglobin Sodium Potassium Chloride Carbon Dioxide BUN Creatinine Glucose POC Glucose 152 H 175 H Calcium Phosphorus Magnesium Iron TIBC Ferritin Total Bilirubin AST ALT Alkaline Phosphatase Total Creatine Kinase Troponin T C-Reactive Protein Total Protein Albumin Triglycerides HDL Cholesterol Miscellaneous Test Flexitest 1 H Crossmatch 08/22/17 08/22/17 08/22/17 16:25 17:56 23:03 WBC RBC Hgb Hct MCV MCH MCHC RDW Plt Count Lymph % (Auto) [place] % (Auto) [place] # Seg Neutrophils % Seg Neuts % (Manual) Lymphocytes % (Manual) Monocytes % (Manual) Nucleated RBC % Seg Neutrophils # Seg Neutrophils # Man Lymphocytes # (Manual) Monocytes # (Manual) Eosinophils # (Manual) Basophils # (Manual) PT INR POC ABG pH ABG pH POC ABG pCO2 POC ABG pO2 ABG pO2 ABG O2 Saturation ABG Base Excess ABG Hemoglobin Oxyhemoglobin Sodium Potassium Chloride Carbon Dioxide BUN Creatinine Glucose POC Glucose 232 H 192 H Calcium Phosphorus Magnesium Iron TIBC Ferritin Total Bilirubin AST ALT Alkaline Phosphatase Total Creatine Kinase Troponin T C-Reactive Protein 30.70 H Total Protein Albumin Triglycerides HDL Cholesterol Miscellaneous Test Crossmatch 08/23/17 08/23/17 08/23/17 05:36 08:50 12:14 WBC RBC Hgb Hct MCV MCH MCHC RDW Plt Count Lymph % (Auto) [place] % (Auto) [place] # Seg Neutrophils % Seg Neuts % (Manual) Lymphocytes % (Manual) Monocytes % (Manual) Nucleated RBC % Seg Neutrophils # Seg Neutrophils # Man Lymphocytes # (Manual) Monocytes # (Manual) Eosinophils # (Manual) Basophils # (Manual) PT INR POC ABG pH ABG pH POC ABG pCO2 POC ABG pO2 ABG pO2 ABG O2 Saturation ABG Base Excess ABG Hemoglobin Oxyhemoglobin Sodium Potassium Chloride 107.1 H Carbon Dioxide BUN 49 H Creatinine 3.3 H Glucose 172 H POC Glucose 206 H 238 H Calcium Phosphorus Magnesium 2.40 H Iron TIBC Ferritin Total Bilirubin AST ALT Alkaline Phosphatase Total Creatine Kinase Troponin T C-Reactive Protein Total Protein Albumin Triglycerides HDL Cholesterol Miscellaneous Test Crossmatch 08/23/17 08/23/17 08/24/17 17:21 23:13 04:00 WBC 34.2 H RBC 2.86 L Hgb 8.4 L Hct 25.9 L MCV MCH MCHC RDW 17.9 H Plt Count Lymph % (Auto) [place] % (Auto) [place] # Seg Neutrophils % Seg Neuts % (Manual) 85.0 H Lymphocytes % (Manual) 0.5 L Monocytes % (Manual) Nucleated RBC % 1.0 H Seg Neutrophils # Seg Neutrophils # Man 29.1 H Lymphocytes # (Manual) 0.2 L Monocytes # (Manual) 2.4 H Eosinophils # (Manual) Basophils # (Manual) PT INR POC ABG pH ABG pH POC ABG pCO2 POC ABG pO2 ABG pO2 ABG O2 Saturation ABG Base Excess ABG Hemoglobin Oxyhemoglobin Sodium Potassium Chloride Carbon Dioxide BUN Creatinine Glucose POC Glucose 226 H 183 H Calcium Phosphorus Magnesium Iron TIBC Ferritin Total Bilirubin AST ALT Alkaline Phosphatase Total Creatine Kinase Troponin T C-Reactive Protein Total Protein Albumin Triglycerides HDL Cholesterol Miscellaneous Test Crossmatch 08/24/17 08/24/17 08/24/17 05:06 09:30 12:04 WBC RBC Hgb Hct MCV MCH MCHC RDW Plt Count Lymph % (Auto) [place] % (Auto) [place] # Seg Neutrophils % Seg Neuts % (Manual) Lymphocytes % (Manual) Monocytes % (Manual) Nucleated RBC % Seg Neutrophils # Seg Neutrophils # Man Lymphocytes # (Manual) Monocytes # (Manual) Eosinophils # (Manual) Basophils # (Manual) PT INR POC ABG pH ABG pH POC ABG pCO2 POC ABG pO2 ABG pO2 ABG O2 Saturation ABG Base Excess ABG Hemoglobin Oxyhemoglobin Sodium Potassium Chloride Carbon Dioxide BUN 46 H Creatinine 2.5 H Glucose 176 H POC Glucose 201 H 181 H Calcium Phosphorus Magnesium Iron TIBC Ferritin Total Bilirubin AST ALT Alkaline Phosphatase Total Creatine Kinase Troponin T C-Reactive Protein Total Protein Albumin Triglycerides HDL Cholesterol Miscellaneous Test Crossmatch 08/24/17 08/24/17 08/25/17 18:04 23:05 05:05 WBC RBC Hgb Hct MCV MCH MCHC RDW Plt Count Lymph % (Auto) [place] % (Auto) [place] # Seg Neutrophils % Seg Neuts % (Manual) Lymphocytes % (Manual) Monocytes % (Manual) Nucleated RBC % Seg Neutrophils # Seg Neutrophils # Man Lymphocytes # (Manual) Monocytes # (Manual) Eosinophils # (Manual) Basophils # (Manual) PT INR POC ABG pH ABG pH POC ABG pCO2 POC ABG pO2 ABG pO2 ABG O2 Saturation ABG Base Excess ABG Hemoglobin Oxyhemoglobin Sodium Potassium Chloride Carbon Dioxide BUN Creatinine Glucose POC Glucose 189 H 175 H 190 H Calcium Phosphorus Magnesium Iron TIBC Ferritin Total Bilirubin AST ALT Alkaline Phosphatase Total Creatine Kinase Troponin T C-Reactive Protein Total Protein Albumin Triglycerides HDL Cholesterol Miscellaneous Test Crossmatch 08/25/17 08/25/17 08/26/17 07:02 11:53 05:30 WBC 33.5 H RBC 2.47 L Hgb 7.3 L Hct 23.0 L MCV MCH MCHC RDW 21.3 H Plt Count Lymph % (Auto) [place] % (Auto) [place] # Seg Neutrophils % Seg Neuts % (Manual) 92.0 H Lymphocytes % (Manual) 1.0 L Monocytes % (Manual) Nucleated RBC % Seg Neutrophils # Seg Neutrophils # Man 30.8 H Lymphocytes # (Manual) 0.3 L Monocytes # (Manual) Eosinophils # (Manual) Basophils # (Manual) PT INR POC ABG pH ABG pH POC ABG pCO2 POC ABG pO2 ABG pO2 ABG O2 Saturation ABG Base Excess ABG Hemoglobin Oxyhemoglobin Sodium Potassium Chloride Carbon Dioxide BUN 32 H Creatinine 5.0 H D Glucose 117 H POC Glucose 191 H Calcium 8.0 L Phosphorus Magnesium Iron TIBC Ferritin Total Bilirubin AST ALT Alkaline Phosphatase Total Creatine Kinase Troponin T C-Reactive Protein Total Protein Albumin Triglycerides HDL Cholesterol Miscellaneous Test Crossmatch 08/26/17 08/26/17 08/26/17 05:30 06:44 13:26 WBC RBC Hgb Hct MCV MCH MCHC RDW Plt Count Lymph % (Auto) [place] % (Auto) [place] # Seg Neutrophils % Seg Neuts % (Manual) Lymphocytes % (Manual) Monocytes % (Manual) Nucleated RBC % Seg Neutrophils # Seg Neutrophils # Man Lymphocytes # (Manual) Monocytes # (Manual) Eosinophils # (Manual) Basophils # (Manual) PT INR POC ABG pH ABG pH POC ABG pCO2 POC ABG pO2 ABG pO2 ABG O2 Saturation ABG Base Excess ABG Hemoglobin Oxyhemoglobin Sodium Potassium 5.2 H Chloride Carbon Dioxide BUN 80 H Creatinine 3.4 H Glucose 193 H POC Glucose 232 H 207 H Calcium 8.3 L Phosphorus 6.80 H D Magnesium 2.60 H Iron TIBC Ferritin Total Bilirubin AST 135 H ALT Alkaline Phosphatase 211 H Total Creatine Kinase Troponin T C-Reactive Protein Total Protein 4.8 L Albumin 2.0 L Triglycerides HDL Cholesterol Miscellaneous Test Crossmatch 08/27/17 08/27/17 08/27/17 01:08 06:20 06:20 WBC 35.0 H RBC 2.75 L Hgb 8.4 L Hct 25.1 L MCV MCH MCHC RDW 21.8 H Plt Count Lymph % (Auto) [place] % (Auto) [place] # Seg Neutrophils % Seg Neuts % (Manual) Lymphocytes % (Manual) 4.5 L Monocytes % (Manual) Nucleated RBC % Seg Neutrophils # Seg Neutrophils # Man 31.9 H Lymphocytes # (Manual) Monocytes # (Manual) 1.2 H Eosinophils # (Manual) Basophils # (Manual) PT INR POC ABG pH ABG pH POC ABG pCO2 POC ABG pO2 ABG pO2 ABG O2 Saturation ABG Base Excess ABG Hemoglobin Oxyhemoglobin Sodium Potassium Chloride Carbon Dioxide BUN 61 H Creatinine 2.6 H Glucose 184 H POC Glucose 146 H Calcium Phosphorus 4.90 H D Magnesium Iron TIBC Ferritin Total Bilirubin AST ALT Alkaline Phosphatase Total Creatine Kinase Troponin T C-Reactive Protein Total Protein Albumin Triglycerides HDL Cholesterol Miscellaneous Test Crossmatch 08/27/17 08/27/17 08/27/17 07:01 09:17 12:52 WBC RBC Hgb Hct MCV MCH MCHC RDW Plt Count Lymph % (Auto) [place] % (Auto) [place] # Seg Neutrophils % Seg Neuts % (Manual) Lymphocytes % (Manual) Monocytes % (Manual) Nucleated RBC % Seg Neutrophils # Seg Neutrophils # Man Lymphocytes # (Manual) Monocytes # (Manual) Eosinophils # (Manual) Basophils # (Manual) PT INR POC ABG pH ABG pH POC ABG pCO2 POC ABG pO2 ABG pO2 ABG O2 Saturation ABG Base Excess ABG Hemoglobin Oxyhemoglobin Sodium Potassium Chloride Carbon Dioxide BUN Creatinine Glucose POC Glucose 165 H 198 H 218 H Calcium Phosphorus Magnesium Iron TIBC Ferritin Total Bilirubin AST ALT Alkaline Phosphatase Total Creatine Kinase Troponin T C-Reactive Protein Total Protein Albumin Triglycerides HDL Cholesterol Miscellaneous Test Crossmatch 08/27/17 08/28/17 08/28/17 17:27 02:13 06:46 WBC RBC Hgb Hct MCV MCH MCHC RDW Plt Count Lymph % (Auto) [place] % (Auto) [place] # Seg Neutrophils % Seg Neuts % (Manual) Lymphocytes % (Manual) Monocytes % (Manual) Nucleated RBC % Seg Neutrophils # Seg Neutrophils # Man Lymphocytes # (Manual) Monocytes # (Manual) Eosinophils # (Manual) Basophils # (Manual) PT INR POC ABG pH ABG pH POC ABG pCO2 POC ABG pO2 ABG pO2 ABG O2 Saturation ABG Base Excess ABG Hemoglobin Oxyhemoglobin Sodium Potassium Chloride Carbon Dioxide BUN Creatinine Glucose POC Glucose 151 H 155 H 230 H Calcium Phosphorus Magnesium Iron TIBC Ferritin Total Bilirubin AST ALT Alkaline Phosphatase Total Creatine Kinase Troponin T C-Reactive Protein Total Protein Albumin Triglycerides HDL Cholesterol Miscellaneous Test Crossmatch 08/28/17 08/28/17 08/28/17 06:53 06:53 08:19 WBC 31.1 H RBC 2.26 L Hgb 6.8 L Hct 20.9 L MCV MCH MCHC RDW 21.7 H Plt Count Lymph % (Auto) [place] % (Auto) [place] # Seg Neutrophils % Seg Neuts % (Manual) 83.0 H Lymphocytes % (Manual) 4.0 L Monocytes % (Manual) Nucleated RBC % Seg Neutrophils # Seg Neutrophils # Man 25.8 H Lymphocytes # (Manual) Monocytes # (Manual) Eosinophils # (Manual) Basophils # (Manual) PT INR POC ABG pH ABG pH POC ABG pCO2 POC ABG pO2 ABG pO2 ABG O2 Saturation ABG Base Excess ABG Hemoglobin Oxyhemoglobin Sodium Potassium Chloride Carbon Dioxide BUN 81 H Creatinine 3.4 H Glucose 218 H POC Glucose 239 H Calcium Phosphorus 4.90 H Magnesium Iron TIBC Ferritin Total Bilirubin AST ALT Alkaline Phosphatase Total Creatine Kinase Troponin T C-Reactive Protein Total Protein Albumin Triglycerides HDL Cholesterol Miscellaneous Test Crossmatch 08/28/17 08/28/17 08/28/17 11:56 13:05 13:29 WBC RBC Hgb Hct MCV MCH MCHC RDW Plt Count Lymph % (Auto) [place] % (Auto) [place] # Seg Neutrophils % Seg Neuts % (Manual) Lymphocytes % (Manual) Monocytes % (Manual) Nucleated RBC % Seg Neutrophils # Seg Neutrophils # Man Lymphocytes # (Manual) Monocytes # (Manual) Eosinophils # (Manual) Basophils # (Manual) PT 16.7 H INR 1.29 H POC ABG pH ABG pH POC ABG pCO2 POC ABG pO2 338 H ABG pO2 ABG O2 Saturation ABG Base Excess ABG Hemoglobin Oxyhemoglobin Sodium Potassium Chloride Carbon Dioxide BUN Creatinine Glucose POC Glucose Calcium Phosphorus Magnesium Iron TIBC Ferritin Total Bilirubin AST ALT Alkaline Phosphatase Total Creatine Kinase Troponin T C-Reactive Protein Total Protein Albumin Triglycerides HDL Cholesterol Miscellaneous Test Crossmatch See Detail 08/28/17 08/28/17 08/29/17 16:22 19:20 04:24 WBC RBC Hgb Hct MCV MCH MCHC RDW Plt Count Lymph % (Auto) [place] % (Auto) [place] # Seg Neutrophils % Seg Neuts % (Manual) Lymphocytes % (Manual) Monocytes % (Manual) Nucleated RBC % Seg Neutrophils # Seg Neutrophils # Man Lymphocytes # (Manual) Monocytes # (Manual) Eosinophils # (Manual) Basophils # (Manual) PT INR POC ABG pH 7.469 H ABG pH POC ABG pCO2 POC ABG pO2 240 H ABG pO2 ABG O2 Saturation ABG Base Excess ABG Hemoglobin Oxyhemoglobin Sodium Potassium Chloride Carbon Dioxide BUN Creatinine Glucose POC Glucose 209 H 195 H Calcium Phosphorus Magnesium Iron TIBC Ferritin Total Bilirubin AST ALT Alkaline Phosphatase Total Creatine Kinase Troponin T C-Reactive Protein Total Protein Albumin Triglycerides HDL Cholesterol Miscellaneous Test Crossmatch 08/29/17 08/29/17 08/29/17 04:30 04:30 12:07 WBC 44.9 H* RBC Hgb Hct MCV MCH MCHC RDW 23.1 H Plt Count Lymph % (Auto) [place] % (Auto) [place] # Seg Neutrophils % Seg Neuts % (Manual) 38.0 L Lymphocytes % (Manual) 10.0 L Monocytes % (Manual) 10.0 H Nucleated RBC % 6.0 H Seg Neutrophils # Seg Neutrophils # Man 17.1 H Lymphocytes # (Manual) Monocytes # (Manual) 4.5 H Eosinophils # (Manual) Basophils # (Manual) PT INR POC ABG pH ABG pH POC ABG pCO2 POC ABG pO2 ABG pO2 ABG O2 Saturation ABG Base Excess ABG Hemoglobin Oxyhemoglobin Sodium Potassium Chloride Carbon Dioxide BUN 61 H Creatinine 2.4 H Glucose 226 H POC Glucose 200 H Calcium Phosphorus Magnesium Iron TIBC Ferritin Total Bilirubin AST ALT Alkaline Phosphatase Total Creatine Kinase Troponin T C-Reactive Protein Total Protein Albumin Triglycerides HDL Cholesterol Miscellaneous Test Crossmatch 08/29/17 08/29/17 08/29/17 12:30 12:30 17:23 WBC RBC Hgb Hct MCV MCH MCHC RDW Plt Count Lymph % (Auto) [place] % (Auto) [place] # Seg Neutrophils % Seg Neuts % (Manual) Lymphocytes % (Manual) Monocytes % (Manual) Nucleated RBC % Seg Neutrophils # Seg Neutrophils # Man Lymphocytes # (Manual) Monocytes # (Manual) Eosinophils # (Manual) Basophils # (Manual) PT INR POC ABG pH ABG pH POC ABG pCO2 POC ABG pO2 ABG pO2 ABG O2 Saturation ABG Base Excess ABG Hemoglobin Oxyhemoglobin Sodium Potassium Chloride Carbon Dioxide BUN Creatinine Glucose POC Glucose 270 H Calcium Phosphorus Magnesium Iron TIBC Ferritin Total Bilirubin AST ALT Alkaline Phosphatase Total Creatine Kinase Troponin T C-Reactive Protein 19.10 H Total Protein Albumin Triglycerides HDL Cholesterol Miscellaneous Test Flexitest 1 H Crossmatch 08/30/17 08/30/17 08/30/17 00:10 01:30 03:31 WBC RBC Hgb Hct MCV MCH MCHC RDW Plt Count Lymph % (Auto) [place] % (Auto) [place] # Seg Neutrophils % Seg Neuts % (Manual) Lymphocytes % (Manual) Monocytes % (Manual) Nucleated RBC % Seg Neutrophils # Seg Neutrophils # Man Lymphocytes # (Manual) Monocytes # (Manual) Eosinophils # (Manual) Basophils # (Manual) PT INR POC ABG pH 7.168 L 7.335 L ABG pH POC ABG pCO2 72.8 H POC ABG pO2 257 H 117 H ABG pO2 ABG O2 Saturation ABG Base Excess ABG Hemoglobin Oxyhemoglobin Sodium Potassium Chloride Carbon Dioxide BUN Creatinine Glucose POC Glucose 245 H Calcium Phosphorus Magnesium Iron TIBC Ferritin Total Bilirubin AST ALT Alkaline Phosphatase Total Creatine Kinase Troponin T C-Reactive Protein Total Protein Albumin Triglycerides HDL Cholesterol Miscellaneous Test Crossmatch 08/30/17 08/30/17 08/30/17 05:20 05:20 05:20 WBC 40.9 H* RBC 3.64 L Hgb Hct MCV MCH MCHC RDW 24.3 H Plt Count Lymph % (Auto) [place] % (Auto) [place] # Seg Neutrophils % Seg Neuts % (Manual) 80.0 H Lymphocytes % (Manual) 3.0 L Monocytes % (Manual) Nucleated RBC % 1.0 H Seg Neutrophils # Seg Neutrophils # Man 32.7 H Lymphocytes # (Manual) Monocytes # (Manual) Eosinophils # (Manual) Basophils # (Manual) PT INR POC ABG pH ABG pH POC ABG pCO2 POC ABG pO2 ABG pO2 ABG O2 Saturation ABG Base Excess ABG Hemoglobin Oxyhemoglobin Sodium Potassium Chloride Carbon Dioxide BUN 83 H Creatinine 2.9 H Glucose 334 H POC Glucose 309 H Calcium Phosphorus Magnesium Iron TIBC Ferritin Total Bilirubin AST ALT Alkaline Phosphatase Total Creatine Kinase Troponin T C-Reactive Protein Total Protein Albumin Triglycerides HDL Cholesterol Miscellaneous Test Crossmatch 08/30/17 08/30/17 08/31/17 12:18 17:36 00:17 WBC RBC Hgb Hct MCV MCH MCHC RDW Plt Count Lymph % (Auto) [place] % (Auto) [place] # Seg Neutrophils % Seg Neuts % (Manual) Lymphocytes % (Manual) Monocytes % (Manual) Nucleated RBC % Seg Neutrophils # Seg Neutrophils # Man Lymphocytes # (Manual) Monocytes # (Manual) Eosinophils # (Manual) Basophils # (Manual) PT INR POC ABG pH ABG pH POC ABG pCO2 POC ABG pO2 ABG pO2 ABG O2 Saturation ABG Base Excess ABG Hemoglobin Oxyhemoglobin Sodium Potassium Chloride Carbon Dioxide BUN Creatinine Glucose POC Glucose 273 H 293 H 360 H Calcium Phosphorus Magnesium Iron TIBC Ferritin Total Bilirubin AST ALT Alkaline Phosphatase Total Creatine Kinase Troponin T C-Reactive Protein Total Protein Albumin Triglycerides HDL Cholesterol Miscellaneous Test Crossmatch 08/31/17 08/31/17 08/31/17 05:30 05:30 05:32 WBC 29.9 H RBC 2.89 L Hgb 8.2 L Hct 24.7 L D MCV MCH MCHC RDW 24.4 H Plt Count Lymph % (Auto) [place] % (Auto) [place] # Seg Neutrophils % Seg Neuts % (Manual) Lymphocytes % (Manual) 2.0 L Monocytes % (Manual) Nucleated RBC % 2.0 H Seg Neutrophils # Seg Neutrophils # Man 18.5 H Lymphocytes # (Manual) 0.6 L Monocytes # (Manual) 0.9 H Eosinophils # (Manual) Basophils # (Manual) PT INR POC ABG pH ABG pH POC ABG pCO2 POC ABG pO2 ABG pO2 ABG O2 Saturation ABG Base Excess ABG Hemoglobin Oxyhemoglobin Sodium Potassium Chloride Carbon Dioxide BUN 62 H Creatinine 2.2 H Glucose 245 H POC Glucose 257 H Calcium Phosphorus 2.10 L D Magnesium 1.60 L Iron TIBC Ferritin Total Bilirubin AST ALT Alkaline Phosphatase Total Creatine Kinase Troponin T C-Reactive Protein Total Protein Albumin Triglycerides HDL Cholesterol Miscellaneous Test Crossmatch 08/31/17 08/31/17 08/31/17 11:56 12:05 18:14 WBC 32.5 H RBC 3.19 L Hgb 8.8 L Hct 27.9 L MCV MCH MCHC RDW 24.9 H Plt Count Lymph % (Auto) [place] % (Auto) [place] # Seg Neutrophils % Seg Neuts % (Manual) Lymphocytes % (Manual) 1.0 L Monocytes % (Manual) 12.0 H Nucleated RBC % 1.0 H Seg Neutrophils # Seg Neutrophils # Man 13.3 H Lymphocytes # (Manual) 0.3 L Monocytes # (Manual) 3.9 H Eosinophils # (Manual) Basophils # (Manual) PT INR POC ABG pH ABG pH POC ABG pCO2 POC ABG pO2 ABG pO2 ABG O2 Saturation ABG Base Excess ABG Hemoglobin Oxyhemoglobin Sodium Potassium Chloride Carbon Dioxide BUN Creatinine Glucose POC Glucose 245 H Calcium Phosphorus Magnesium Iron TIBC Ferritin Total Bilirubin AST ALT Alkaline Phosphatase Total Creatine Kinase Troponin T C-Reactive Protein Total Protein Albumin Triglycerides HDL Cholesterol Miscellaneous Test Crossmatch See Detail 08/31/17 08/31/17 08/31/17 18:14 18:15 18:22 WBC RBC Hgb Hct MCV MCH MCHC RDW Plt Count Lymph % (Auto) [place] % (Auto) [place] # Seg Neutrophils % Seg Neuts % (Manual) Lymphocytes % (Manual) Monocytes % (Manual) Nucleated RBC % Seg Neutrophils # Seg Neutrophils # Man Lymphocytes # (Manual) Monocytes # (Manual) Eosinophils # (Manual) Basophils # (Manual) PT 15.1 H INR POC ABG pH ABG pH POC ABG pCO2 POC ABG pO2 ABG pO2 ABG O2 Saturation ABG Base Excess ABG Hemoglobin Oxyhemoglobin Sodium 136 L Potassium Chloride Carbon Dioxide 21 L BUN 69 H Creatinine 2.3 H Glucose 227 H POC Glucose 240 H Calcium Phosphorus 2.40 L Magnesium 1.50 L Iron TIBC Ferritin Total Bilirubin AST 143 H ALT 114 H Alkaline Phosphatase 267 H Total Creatine Kinase Troponin T C-Reactive Protein Total Protein 4.1 L Albumin 1.8 L Triglycerides HDL Cholesterol Miscellaneous Test Crossmatch 08/31/17 09/01/17 09/01/17 23:53 05:00 05:00 WBC 33.9 H RBC 2.85 L Hgb 7.8 L Hct 24.8 L MCV MCH 27 L MCHC RDW 23.9 H Plt Count Lymph % (Auto) [place] % (Auto) [place] # Seg Neutrophils % Seg Neuts % (Manual) Lymphocytes % (Manual) 5.0 L Monocytes % (Manual) Nucleated RBC % Seg Neutrophils # Seg Neutrophils # Man 23.1 H Lymphocytes # (Manual) Monocytes # (Manual) Eosinophils # (Manual) Basophils # (Manual) PT INR POC ABG pH ABG pH POC ABG pCO2 POC ABG pO2 ABG pO2 ABG O2 Saturation ABG Base Excess ABG Hemoglobin Oxyhemoglobin Sodium Potassium Chloride Carbon Dioxide BUN 51 H Creatinine 1.8 H Glucose 195 H POC Glucose 301 H Calcium Phosphorus 1.70 L D Magnesium 1.60 L Iron TIBC Ferritin Total Bilirubin AST 80 H ALT 82 H Alkaline Phosphatase 243 H Total Creatine Kinase Troponin T C-Reactive Protein Total Protein 4.2 L Albumin 1.7 L Triglycerides HDL Cholesterol Miscellaneous Test Crossmatch 09/01/17 09/01/17 09/01/17 05:20 05:47 11:37 WBC RBC Hgb Hct MCV MCH MCHC RDW Plt Count Lymph % (Auto) [place] % (Auto) [place] # Seg Neutrophils % Seg Neuts % (Manual) Lymphocytes % (Manual) Monocytes % (Manual) Nucleated RBC % Seg Neutrophils # Seg Neutrophils # Man Lymphocytes # (Manual) Monocytes # (Manual) Eosinophils # (Manual) Basophils # (Manual) PT INR POC ABG pH ABG pH 7.348 L POC ABG pCO2 POC ABG pO2 ABG pO2 70.2 L ABG O2 Saturation ABG Base Excess ABG Hemoglobin 7.5 L Oxyhemoglobin Sodium Potassium Chloride Carbon Dioxide BUN Creatinine Glucose POC Glucose 230 H 254 H Calcium Phosphorus Magnesium Iron TIBC Ferritin Total Bilirubin AST ALT Alkaline Phosphatase Total Creatine Kinase Troponin T C-Reactive Protein Total Protein Albumin Triglycerides HDL Cholesterol Miscellaneous Test Crossmatch 09/01/17 09/01/17 09/02/17 17:39 23:14 04:55 WBC RBC Hgb Hct MCV MCH MCHC RDW Plt Count Lymph % (Auto) [place] % (Auto) [place] # Seg Neutrophils % Seg Neuts % (Manual) Lymphocytes % (Manual) Monocytes % (Manual) Nucleated RBC % Seg Neutrophils # Seg Neutrophils # Man Lymphocytes # (Manual) Monocytes # (Manual) Eosinophils # (Manual) Basophils # (Manual) PT INR POC ABG pH ABG pH POC ABG pCO2 POC ABG pO2 ABG pO2 124.8 H ABG O2 Saturation ABG Base Excess -2.9 L ABG Hemoglobin 5.8 L Oxyhemoglobin Sodium Potassium Chloride Carbon Dioxide BUN Creatinine Glucose POC Glucose 297 H 291 H Calcium Phosphorus Magnesium Iron TIBC Ferritin Total Bilirubin AST ALT Alkaline Phosphatase Total Creatine Kinase Troponin T C-Reactive Protein Total Protein Albumin Triglycerides HDL Cholesterol Miscellaneous Test Crossmatch 09/02/17 09/02/17 09/02/17 05:31 06:10 11:58 WBC RBC Hgb Hct MCV MCH MCHC RDW Plt Count Lymph % (Auto) [place] % (Auto) [place] # Seg Neutrophils % Seg Neuts % (Manual) Lymphocytes % (Manual) Monocytes % (Manual) Nucleated RBC % Seg Neutrophils # Seg Neutrophils # Man Lymphocytes # (Manual) Monocytes # (Manual) Eosinophils # (Manual) Basophils # (Manual) PT INR POC ABG pH ABG pH POC ABG pCO2 POC ABG pO2 ABG pO2 ABG O2 Saturation ABG Base Excess ABG Hemoglobin Oxyhemoglobin Sodium Potassium Chloride Carbon Dioxide BUN 68 H Creatinine 2.2 H Glucose 369 H POC Glucose 245 H 333 H Calcium 8.2 L Phosphorus Magnesium Iron TIBC Ferritin Total Bilirubin AST ALT Alkaline Phosphatase Total Creatine Kinase Troponin T C-Reactive Protein Total Protein Albumin Triglycerides HDL Cholesterol Miscellaneous Test Crossmatch 09/02/17 09/02/17 09/03/17 15:37 23:50 04:00 WBC RBC Hgb Hct MCV MCH MCHC RDW Plt Count Lymph % (Auto) [place] % (Auto) [place] # Seg Neutrophils % Seg Neuts % (Manual) Lymphocytes % (Manual) Monocytes % (Manual) Nucleated RBC % Seg Neutrophils # Seg Neutrophils # Man Lymphocytes # (Manual) Monocytes # (Manual) Eosinophils # (Manual) Basophils # (Manual) PT INR POC ABG pH ABG pH POC ABG pCO2 POC ABG pO2 ABG pO2 ABG O2 Saturation ABG Base Excess ABG Hemoglobin Oxyhemoglobin Sodium Potassium Chloride Carbon Dioxide BUN 59 H Creatinine 1.9 H Glucose 231 H POC Glucose 314 H 240 H Calcium 8.0 L Phosphorus Magnesium Iron TIBC Ferritin Total Bilirubin AST ALT Alkaline Phosphatase 265 H Total Creatine Kinase Troponin T C-Reactive Protein Total Protein 4.4 L Albumin 1.7 L Triglycerides 180 H HDL Cholesterol Miscellaneous Test Crossmatch 09/03/17 09/03/17 09/03/17 05:00 05:32 11:52 WBC 41.5 H* RBC 2.46 L Hgb 6.9 L Hct 21.3 L MCV MCH MCHC RDW 24.9 H Plt Count Lymph % (Auto) [place] % (Auto) [place] # Seg Neutrophils % Seg Neuts % (Manual) Lymphocytes % (Manual) 3.0 L Monocytes % (Manual) 9.5 H Nucleated RBC % 1.5 H Seg Neutrophils # Seg Neutrophils # Man 28.8 H Lymphocytes # (Manual) Monocytes # (Manual) 3.9 H Eosinophils # (Manual) Basophils # (Manual) PT INR POC ABG pH ABG pH POC ABG pCO2 POC ABG pO2 ABG pO2 ABG O2 Saturation ABG Base Excess ABG Hemoglobin Oxyhemoglobin Sodium Potassium Chloride Carbon Dioxide BUN Creatinine Glucose POC Glucose 188 H 285 H Calcium Phosphorus Magnesium Iron TIBC Ferritin Total Bilirubin AST ALT Alkaline Phosphatase Total Creatine Kinase Troponin T C-Reactive Protein Total Protein Albumin Triglycerides HDL Cholesterol Miscellaneous Test Crossmatch 09/03/17 09/03/17 09/03/17 16:55 17:44 23:56 WBC RBC Hgb Hct MCV MCH MCHC RDW Plt Count Lymph % (Auto) [place] % (Auto) [place] # Seg Neutrophils % Seg Neuts % (Manual) Lymphocytes % (Manual) Monocytes % (Manual) Nucleated RBC % Seg Neutrophils # Seg Neutrophils # Man Lymphocytes # (Manual) Monocytes # (Manual) Eosinophils # (Manual) Basophils # (Manual) PT INR POC ABG pH ABG pH POC ABG pCO2 POC ABG pO2 ABG pO2 ABG O2 Saturation ABG Base Excess ABG Hemoglobin Oxyhemoglobin Sodium Potassium Chloride Carbon Dioxide BUN Creatinine Glucose POC Glucose 217 H 193 H Calcium Phosphorus Magnesium Iron TIBC Ferritin Total Bilirubin AST ALT Alkaline Phosphatase Total Creatine Kinase Troponin T C-Reactive Protein Total Protein Albumin Triglycerides HDL Cholesterol Miscellaneous Test Crossmatch See Detail 09/03/17 09/04/17 09/04/17 Unknown 03:47 04:32 WBC 44.7 H* RBC 3.12 L Hgb 8.7 L Hct 26.7 L MCV MCH MCHC RDW 23.5 H Plt Count Lymph % (Auto) [place] % (Auto) [place] # Seg Neutrophils % Seg Neuts % (Manual) Lymphocytes % (Manual) 4.0 L Monocytes % (Manual) Nucleated RBC % 2.0 H Seg Neutrophils # Seg Neutrophils # Man 30.8 H Lymphocytes # (Manual) Monocytes # (Manual) 2.2 H Eosinophils # (Manual) Basophils # (Manual) PT INR POC ABG pH ABG pH POC ABG pCO2 POC ABG pO2 ABG pO2 133.4 H 135.0 H ABG O2 Saturation ABG Base Excess -2.5 L ABG Hemoglobin 5.8 L 7.9 L Oxyhemoglobin Sodium Potassium Chloride Carbon Dioxide BUN Creatinine Glucose POC Glucose Calcium Phosphorus Magnesium Iron TIBC Ferritin Total Bilirubin AST ALT Alkaline Phosphatase Total Creatine Kinase Troponin T C-Reactive Protein Total Protein Albumin Triglycerides HDL Cholesterol Miscellaneous Test Crossmatch 09/04/17 09/04/17 09/04/17 04:32 05:48 10:43 WBC RBC Hgb Hct MCV MCH MCHC RDW Plt Count Lymph % (Auto) [place] % (Auto) [place] # Seg Neutrophils % Seg Neuts % (Manual) Lymphocytes % (Manual) Monocytes % (Manual) Nucleated RBC % Seg Neutrophils # Seg Neutrophils # Man Lymphocytes # (Manual) Monocytes # (Manual) Eosinophils # (Manual) Basophils # (Manual) PT INR POC ABG pH ABG pH POC ABG pCO2 POC ABG pO2 ABG pO2 ABG O2 Saturation ABG Base Excess ABG Hemoglobin Oxyhemoglobin Sodium 136 L Potassium 5.2 H D Chloride 94.2 L Carbon Dioxide BUN 71 H Creatinine 2.3 H Glucose 235 H POC Glucose 329 H Calcium 8.3 L Phosphorus Magnesium Iron TIBC Ferritin Total Bilirubin AST ALT Alkaline Phosphatase Total Creatine Kinase Troponin T C-Reactive Protein Total Protein Albumin Triglycerides HDL Cholesterol Miscellaneous Test Flexitest 1 H Crossmatch 09/04/17 09/04/17 09/05/17 12:38 17:30 00:15 WBC RBC Hgb Hct MCV MCH MCHC RDW Plt Count Lymph % (Auto) [place] % (Auto) [place] # Seg Neutrophils % Seg Neuts % (Manual) Lymphocytes % (Manual) Monocytes % (Manual) Nucleated RBC % Seg Neutrophils # Seg Neutrophils # Man Lymphocytes # (Manual) Monocytes # (Manual) Eosinophils # (Manual) Basophils # (Manual) PT INR POC ABG pH ABG pH POC ABG pCO2 POC ABG pO2 ABG pO2 ABG O2 Saturation ABG Base Excess ABG Hemoglobin Oxyhemoglobin Sodium Potassium Chloride Carbon Dioxide BUN Creatinine Glucose POC Glucose 444 H 331 H 362 H Calcium Phosphorus Magnesium Iron TIBC Ferritin Total Bilirubin AST ALT Alkaline Phosphatase Total Creatine Kinase Troponin T C-Reactive Protein Total Protein Albumin Triglycerides HDL Cholesterol Miscellaneous Test Crossmatch 09/05/17 09/05/17 09/05/17 03:55 03:55 12:12 WBC 35.3 H RBC 2.87 L Hgb 8.1 L Hct 24.6 L MCV MCH MCHC RDW 23.3 H Plt Count Lymph % (Auto) [place] % (Auto) [place] # Seg Neutrophils % Seg Neuts % (Manual) 89.5 H Lymphocytes % (Manual) 3.0 L Monocytes % (Manual) Nucleated RBC % 2.5 H Seg Neutrophils # Seg Neutrophils # Man 31.6 H Lymphocytes # (Manual) 1.1 L Monocytes # (Manual) Eosinophils # (Manual) Basophils # (Manual) PT INR POC ABG pH ABG pH POC ABG pCO2 POC ABG pO2 ABG pO2 ABG O2 Saturation ABG Base Excess ABG Hemoglobin Oxyhemoglobin Sodium 136 L Potassium Chloride 94.7 L Carbon Dioxide BUN 55 H Creatinine 1.8 H Glucose 193 H POC Glucose 344 H Calcium 8.1 L Phosphorus Magnesium Iron TIBC Ferritin Total Bilirubin AST ALT Alkaline Phosphatase Total Creatine Kinase Troponin T C-Reactive Protein Total Protein Albumin Triglycerides HDL Cholesterol Miscellaneous Test Crossmatch 09/05/17 09/05/17 09/05/17 14:32 15:32 16:41 WBC RBC Hgb Hct MCV MCH MCHC RDW Plt Count Lymph % (Auto) [place] % (Auto) [place] # Seg Neutrophils % Seg Neuts % (Manual) Lymphocytes % (Manual) Monocytes % (Manual) Nucleated RBC % Seg Neutrophils # Seg Neutrophils # Man Lymphocytes # (Manual) Monocytes # (Manual) Eosinophils # (Manual) Basophils # (Manual) PT INR POC ABG pH ABG pH POC ABG pCO2 POC ABG pO2 ABG pO2 ABG O2 Saturation ABG Base Excess ABG Hemoglobin Oxyhemoglobin Sodium Potassium Chloride Carbon Dioxide BUN Creatinine Glucose POC Glucose 265 H 145 H 188 H Calcium Phosphorus Magnesium Iron TIBC Ferritin Total Bilirubin AST ALT Alkaline Phosphatase Total Creatine Kinase Troponin T C-Reactive Protein Total Protein Albumin Triglycerides HDL Cholesterol Miscellaneous Test Crossmatch 09/05/17 09/05/17 09/05/17 17:28 18:38 20:10 WBC RBC Hgb Hct MCV MCH MCHC RDW Plt Count Lymph % (Auto) [place] % (Auto) [place] # Seg Neutrophils % Seg Neuts % (Manual) Lymphocytes % (Manual) Monocytes % (Manual) Nucleated RBC % Seg Neutrophils # Seg Neutrophils # Man Lymphocytes # (Manual) Monocytes # (Manual) Eosinophils # (Manual) Basophils # (Manual) PT INR POC ABG pH ABG pH POC ABG pCO2 POC ABG pO2 ABG pO2 ABG O2 Saturation ABG Base Excess ABG Hemoglobin Oxyhemoglobin Sodium Potassium Chloride Carbon Dioxide BUN Creatinine Glucose POC Glucose 246 H 271 H 165 H Calcium Phosphorus Magnesium Iron TIBC Ferritin Total Bilirubin AST ALT Alkaline Phosphatase Total Creatine Kinase Troponin T C-Reactive Protein Total Protein Albumin Triglycerides HDL Cholesterol Miscellaneous Test Crossmatch 09/05/17 09/05/17 09/06/17 21:06 23:07 00:10 WBC RBC Hgb Hct MCV MCH MCHC RDW Plt Count Lymph % (Auto) [place] % (Auto) [place] # Seg Neutrophils % Seg Neuts % (Manual) Lymphocytes % (Manual) Monocytes % (Manual) Nucleated RBC % Seg Neutrophils # Seg Neutrophils # Man Lymphocytes # (Manual) Monocytes # (Manual) Eosinophils # (Manual) Basophils # (Manual) PT INR POC ABG pH ABG pH POC ABG pCO2 POC ABG pO2 ABG pO2 ABG O2 Saturation ABG Base Excess ABG Hemoglobin Oxyhemoglobin Sodium Potassium Chloride Carbon Dioxide BUN Creatinine Glucose POC Glucose 134 H 135 H 147 H Calcium Phosphorus Magnesium Iron TIBC Ferritin Total Bilirubin AST ALT Alkaline Phosphatase Total Creatine Kinase Troponin T C-Reactive Protein Total Protein Albumin Triglycerides HDL Cholesterol Miscellaneous Test Crossmatch 09/06/17 09/06/17 09/06/17 01:08 02:01 03:08 WBC RBC Hgb Hct MCV MCH MCHC RDW Plt Count Lymph % (Auto) [place] % (Auto) [place] # Seg Neutrophils % Seg Neuts % (Manual) Lymphocytes % (Manual) Monocytes % (Manual) Nucleated RBC % Seg Neutrophils # Seg Neutrophils # Man Lymphocytes # (Manual) Monocytes # (Manual) Eosinophils # (Manual) Basophils # (Manual) PT INR POC ABG pH ABG pH POC ABG pCO2 POC ABG pO2 ABG pO2 ABG O2 Saturation ABG Base Excess ABG Hemoglobin Oxyhemoglobin Sodium Potassium Chloride Carbon Dioxide BUN Creatinine Glucose POC Glucose 133 H 146 H 135 H Calcium Phosphorus Magnesium Iron TIBC Ferritin Total Bilirubin AST ALT Alkaline Phosphatase Total Creatine Kinase Troponin T C-Reactive Protein Total Protein Albumin Triglycerides HDL Cholesterol Miscellaneous Test Crossmatch 09/06/17 09/06/17 09/06/17 05:30 05:30 05:30 WBC 38.6 H RBC 2.95 L Hgb 8.3 L Hct 25.3 L MCV MCH MCHC RDW 22.2 H Plt Count Lymph % (Auto) [place] % (Auto) [place] # Seg Neutrophils % Seg Neuts % (Manual) Lymphocytes % (Manual) 2.0 L Monocytes % (Manual) Nucleated RBC % 5.0 H Seg Neutrophils # Seg Neutrophils # Man 25.9 H Lymphocytes # (Manual) 0.8 L Monocytes # (Manual) 1.9 H Eosinophils # (Manual) Basophils # (Manual) PT INR POC ABG pH ABG pH POC ABG pCO2 POC ABG pO2 ABG pO2 ABG O2 Saturation ABG Base Excess ABG Hemoglobin Oxyhemoglobin Sodium 135 L Potassium Chloride 93.5 L Carbon Dioxide BUN 82 H Creatinine 2.3 H Glucose 148 H POC Glucose Calcium Phosphorus Magnesium Iron TIBC Ferritin Total Bilirubin AST ALT Alkaline Phosphatase Total Creatine Kinase Troponin T C-Reactive Protein 2.80 H Total Protein Albumin Triglycerides HDL Cholesterol Miscellaneous Test Crossmatch 09/06/17 09/06/17 09/06/17 05:48 08:04 09:06 WBC RBC Hgb Hct MCV MCH MCHC RDW Plt Count Lymph % (Auto) [place] % (Auto) [place] # Seg Neutrophils % Seg Neuts % (Manual) Lymphocytes % (Manual) Monocytes % (Manual) Nucleated RBC % Seg Neutrophils # Seg Neutrophils # Man Lymphocytes # (Manual) Monocytes # (Manual) Eosinophils # (Manual) Basophils # (Manual) PT INR POC ABG pH ABG pH POC ABG pCO2 POC ABG pO2 ABG pO2 ABG O2 Saturation ABG Base Excess ABG Hemoglobin Oxyhemoglobin Sodium Potassium Chloride Carbon Dioxide BUN Creatinine Glucose POC Glucose 152 H 164 H 172 H Calcium Phosphorus Magnesium Iron TIBC Ferritin Total Bilirubin AST ALT Alkaline Phosphatase Total Creatine Kinase Troponin T C-Reactive Protein Total Protein Albumin Triglycerides HDL Cholesterol Miscellaneous Test Crossmatch 09/06/17 09/06/17 09/06/17 09:57 10:19 10:57 WBC RBC Hgb Hct MCV MCH MCHC RDW Plt Count Lymph % (Auto) [place] % (Auto) [place] # Seg Neutrophils % Seg Neuts % (Manual) Lymphocytes % (Manual) Monocytes % (Manual) Nucleated RBC % Seg Neutrophils # Seg Neutrophils # Man Lymphocytes # (Manual) Monocytes # (Manual) Eosinophils # (Manual) Basophils # (Manual) PT INR POC ABG pH ABG pH POC ABG pCO2 POC ABG pO2 ABG pO2 ABG O2 Saturation ABG Base Excess ABG Hemoglobin Oxyhemoglobin Sodium Potassium Chloride Carbon Dioxide BUN Creatinine Glucose POC Glucose 186 H 162 H Calcium Phosphorus Magnesium Iron TIBC Ferritin Total Bilirubin AST ALT Alkaline Phosphatase Total Creatine Kinase Troponin T C-Reactive Protein Total Protein Albumin Triglycerides HDL Cholesterol Miscellaneous Test Flexitest 1 H Crossmatch 09/06/17 09/06/17 09/06/17 13:12 13:40 17:36 WBC RBC Hgb 8.9 L Hct 28.5 L MCV MCH MCHC RDW Plt Count Lymph % (Auto) [place] % (Auto) [place] # Seg Neutrophils % Seg Neuts % (Manual) Lymphocytes % (Manual) Monocytes % (Manual) Nucleated RBC % Seg Neutrophils # Seg Neutrophils # Man Lymphocytes # (Manual) Monocytes # (Manual) Eosinophils # (Manual) Basophils # (Manual) PT INR POC ABG pH ABG pH POC ABG pCO2 POC ABG pO2 ABG pO2 ABG O2 Saturation ABG Base Excess ABG Hemoglobin Oxyhemoglobin Sodium Potassium Chloride Carbon Dioxide BUN Creatinine Glucose POC Glucose 166 H 161 H Calcium Phosphorus Magnesium Iron TIBC Ferritin Total Bilirubin AST ALT Alkaline Phosphatase Total Creatine Kinase Troponin T C-Reactive Protein Total Protein Albumin Triglycerides HDL Cholesterol Miscellaneous Test Crossmatch 09/07/17 09/07/17 09/07/17 00:13 03:50 03:50 WBC 47.0 H* RBC 2.81 L Hgb 8.1 L Hct 24.1 L MCV MCH MCHC RDW 22.5 H Plt Count Lymph % (Auto) [place] % (Auto) [place] # Seg Neutrophils % Seg Neuts % (Manual) Lymphocytes % (Manual) 9.0 L Monocytes % (Manual) Nucleated RBC % 6.0 H Seg Neutrophils # Seg Neutrophils # Man 27.3 H Lymphocytes # (Manual) Monocytes # (Manual) 0.9 H Eosinophils # (Manual) 1.9 H Basophils # (Manual) PT INR POC ABG pH ABG pH POC ABG pCO2 POC ABG pO2 ABG pO2 ABG O2 Saturation ABG Base Excess ABG Hemoglobin Oxyhemoglobin Sodium 136 L Potassium Chloride 96.3 L Carbon Dioxide BUN 61 H Creatinine 1.7 H Glucose 132 H POC Glucose 183 H Calcium 7.8 L Phosphorus Magnesium Iron TIBC Ferritin Total Bilirubin AST ALT Alkaline Phosphatase Total Creatine Kinase Troponin T C-Reactive Protein Total Protein Albumin Triglycerides HDL Cholesterol Miscellaneous Test Crossmatch 09/07/17 09/07/17 09/07/17 05:12 05:23 11:48 WBC RBC Hgb Hct MCV MCH MCHC RDW Plt Count Lymph % (Auto) [place] % (Auto) [place] # Seg Neutrophils % Seg Neuts % (Manual) Lymphocytes % (Manual) Monocytes % (Manual) Nucleated RBC % Seg Neutrophils # Seg Neutrophils # Man Lymphocytes # (Manual) Monocytes # (Manual) Eosinophils # (Manual) Basophils # (Manual) PT INR POC ABG pH ABG pH POC ABG pCO2 POC ABG pO2 ABG pO2 ABG O2 Saturation ABG Base Excess ABG Hemoglobin 7.7 L Oxyhemoglobin 94.8 L Sodium Potassium Chloride Carbon Dioxide BUN Creatinine Glucose POC Glucose 162 H 200 H Calcium Phosphorus Magnesium Iron TIBC Ferritin Total Bilirubin AST ALT Alkaline Phosphatase Total Creatine Kinase Troponin T C-Reactive Protein Total Protein Albumin Triglycerides HDL Cholesterol Miscellaneous Test Crossmatch 10/09/07/17 09/08/17 17:07 18:21 00:06 WBC RBC Hgb Hct MCV MCH MCHC RDW Plt Count Lymph % (Auto) [place] % (Auto) [place] # Seg Neutrophils % Seg Neuts % (Manual) Lymphocytes % (Manual) Monocytes % (Manual) Nucleated RBC % Seg Neutrophils # Seg Neutrophils # Man Lymphocytes # (Manual) Monocytes # (Manual) Eosinophils # (Manual) Basophils # (Manual) PT INR POC ABG pH ABG pH POC ABG pCO2 POC ABG pO2 ABG pO2 ABG O2 Saturation ABG Base Excess ABG Hemoglobin Oxyhemoglobin Sodium Potassium Chloride Carbon Dioxide BUN Creatinine Glucose POC Glucose 181 H 168 H Calcium Phosphorus Magnesium Iron TIBC Ferritin Total Bilirubin AST ALT Alkaline Phosphatase Total Creatine Kinase Troponin T C-Reactive Protein Total Protein Albumin Triglycerides HDL Cholesterol Miscellaneous Test Crossmatch See Detail 09/08/17 09/08/17 09/08/17 04:05 04:05 04:41 WBC 49.7 H* RBC 2.58 L Hgb 7.3 L Hct 22.7 L MCV MCH MCHC RDW 22.5 H Plt Count Lymph % (Auto) [place] % (Auto) [place] # Seg Neutrophils % Seg Neuts % (Manual) 90.5 H Lymphocytes % (Manual) 1.5 L Monocytes % (Manual) Nucleated RBC % Seg Neutrophils # Seg Neutrophils # Man 45.0 H Lymphocytes # (Manual) 0.7 L Monocytes # (Manual) 1.7 H Eosinophils # (Manual) Basophils # (Manual) PT INR POC ABG pH ABG pH POC ABG pCO2 POC ABG pO2 ABG pO2 ABG O2 Saturation ABG Base Excess ABG Hemoglobin Oxyhemoglobin Sodium 132 L Potassium Chloride 92.1 L Carbon Dioxide BUN 82 H Creatinine 2.2 H Glucose 162 H POC Glucose 235 H Calcium 8.3 L Phosphorus 5.20 H D Magnesium Iron TIBC Ferritin Total Bilirubin AST ALT Alkaline Phosphatase 199 H Total Creatine Kinase Troponin T C-Reactive Protein Total Protein 4.5 L Albumin 1.7 L Triglycerides HDL Cholesterol Miscellaneous Test Crossmatch 09/08/17 09/08/17 09/08/17 09:21 11:52 17:38 WBC RBC Hgb Hct MCV MCH MCHC RDW Plt Count Lymph % (Auto) [place] % (Auto) [place] # Seg Neutrophils % Seg Neuts % (Manual) Lymphocytes % (Manual) Monocytes % (Manual) Nucleated RBC % Seg Neutrophils # Seg Neutrophils # Man Lymphocytes # (Manual) Monocytes # (Manual) Eosinophils # (Manual) Basophils # (Manual) PT INR POC ABG pH ABG pH POC ABG pCO2 POC ABG pO2 ABG pO2 218.5 H ABG O2 Saturation 99.3 H ABG Base Excess -3.5 L ABG Hemoglobin 7.7 L Oxyhemoglobin Sodium Potassium Chloride Carbon Dioxide BUN Creatinine Glucose POC Glucose 220 H 194 H Calcium Phosphorus Magnesium Iron TIBC Ferritin Total Bilirubin AST ALT Alkaline Phosphatase Total Creatine Kinase Troponin T C-Reactive Protein Total Protein Albumin Triglycerides HDL Cholesterol Miscellaneous Test Crossmatch 09/09/17 09/09/17 09/09/17 00:24 03:37 03:37 WBC 33.5 H RBC 2.36 L Hgb 6.7 L Hct 20.9 L MCV MCH MCHC RDW 22.7 H Plt Count Lymph % (Auto) [place] % (Auto) [place] # Seg Neutrophils % Seg Neuts % (Manual) Lymphocytes % (Manual) Monocytes % (Manual) Nucleated RBC % Seg Neutrophils # Seg Neutrophils # Man Lymphocytes # (Manual) Monocytes # (Manual) Eosinophils # (Manual) Basophils # (Manual) PT INR POC ABG pH ABG pH POC ABG pCO2 POC ABG pO2 ABG pO2 ABG O2 Saturation ABG Base Excess ABG Hemoglobin Oxyhemoglobin Sodium 132 L Potassium Chloride 91.6 L Carbon Dioxide 21 L BUN 101 H Creatinine 2.6 H Glucose 156 H POC Glucose 182 H Calcium 8.3 L Phosphorus 5.90 H Magnesium 2.60 H Iron TIBC Ferritin Total Bilirubin AST ALT Alkaline Phosphatase Total Creatine Kinase Troponin T C-Reactive Protein Total Protein Albumin Triglycerides HDL Cholesterol Miscellaneous Test Crossmatch 09/09/17 09/09/17 09/09/17 05:29 12:03 18:05 WBC RBC Hgb Hct MCV MCH MCHC RDW Plt Count Lymph % (Auto) [place] % (Auto) [place] # Seg Neutrophils % Seg Neuts % (Manual) Lymphocytes % (Manual) Monocytes % (Manual) Nucleated RBC % Seg Neutrophils # Seg Neutrophils # Man Lymphocytes # (Manual) Monocytes # (Manual) Eosinophils # (Manual) Basophils # (Manual) PT INR POC ABG pH ABG pH POC ABG pCO2 POC ABG pO2 ABG pO2 ABG O2 Saturation ABG Base Excess ABG Hemoglobin Oxyhemoglobin Sodium Potassium Chloride Carbon Dioxide BUN Creatinine Glucose POC Glucose 168 H 143 H 173 H Calcium Phosphorus Magnesium Iron TIBC Ferritin Total Bilirubin AST ALT Alkaline Phosphatase Total Creatine Kinase Troponin T C-Reactive Protein Total Protein Albumin Triglycerides HDL Cholesterol Miscellaneous Test Crossmatch 09/09/17 09/09/17 09/10/17 23:30 Unknown 05:04 WBC RBC Hgb Hct MCV MCH MCHC RDW Plt Count Lymph % (Auto) [place] % (Auto) [place] # Seg Neutrophils % Seg Neuts % (Manual) Lymphocytes % (Manual) Monocytes % (Manual) Nucleated RBC % Seg Neutrophils # Seg Neutrophils # Man Lymphocytes # (Manual) Monocytes # (Manual) Eosinophils # (Manual) Basophils # (Manual) PT INR POC ABG pH ABG pH 7.323 L POC ABG pCO2 POC ABG pO2 ABG pO2 94.1 H ABG O2 Saturation ABG Base Excess -4.8 L ABG Hemoglobin 8.0 L Oxyhemoglobin 94.9 L Sodium Potassium Chloride Carbon Dioxide BUN Creatinine Glucose POC Glucose 212 H 155 H Calcium Phosphorus Magnesium Iron TIBC Ferritin Total Bilirubin AST ALT Alkaline Phosphatase Total Creatine Kinase Troponin T C-Reactive Protein Total Protein Albumin Triglycerides HDL Cholesterol Miscellaneous Test Crossmatch 09/10/17 09/10/17 09/10/17 07:00 09:55 12:22 WBC 24.7 H RBC 2.62 L Hgb 7.5 L Hct 22.5 L MCV MCH MCHC RDW 20.8 H Plt Count Lymph % (Auto) [place] % (Auto) [place] # Seg Neutrophils % Seg Neuts % (Manual) Lymphocytes % (Manual) Monocytes % (Manual) Nucleated RBC % Seg Neutrophils # Seg Neutrophils # Man Lymphocytes # (Manual) Monocytes # (Manual) Eosinophils # (Manual) Basophils # (Manual) PT INR POC ABG pH ABG pH POC ABG pCO2 POC ABG pO2 ABG pO2 ABG O2 Saturation ABG Base Excess ABG Hemoglobin Oxyhemoglobin Sodium Potassium Chloride 97.9 L Carbon Dioxide BUN 78 H Creatinine 2.0 H Glucose 126 H POC Glucose 183 H Calcium 8.2 L Phosphorus Magnesium Iron TIBC Ferritin Total Bilirubin AST ALT Alkaline Phosphatase Total Creatine Kinase Troponin T C-Reactive Protein Total Protein Albumin Triglycerides HDL Cholesterol Miscellaneous Test Crossmatch 09/11/17 09/11/17 09/11/17 00:08 03:50 05:28 WBC 21.6 H RBC 2.52 L Hgb 7.4 L Hct 22.2 L MCV MCH MCHC RDW 21.5 H Plt Count Lymph % (Auto) [place] % (Auto) [place] # Seg Neutrophils % Seg Neuts % (Manual) 92.0 H Lymphocytes % (Manual) 3.0 L Monocytes % (Manual) Nucleated RBC % Seg Neutrophils # Seg Neutrophils # Man 19.9 H Lymphocytes # (Manual) 0.6 L Monocytes # (Manual) Eosinophils # (Manual) Basophils # (Manual) PT INR POC ABG pH ABG pH POC ABG pCO2 POC ABG pO2 ABG pO2 ABG O2 Saturation ABG Base Excess ABG Hemoglobin Oxyhemoglobin Sodium Potassium Chloride Carbon Dioxide BUN Creatinine Glucose POC Glucose 213 H 181 H Calcium Phosphorus Magnesium Iron TIBC Ferritin Total Bilirubin AST ALT Alkaline Phosphatase Total Creatine Kinase Troponin T C-Reactive Protein Total Protein Albumin Triglycerides HDL Cholesterol Miscellaneous Test Crossmatch 09/11/17 09/11/17 09/11/17 11:55 17:56 23:12 WBC RBC Hgb Hct MCV MCH MCHC RDW Plt Count Lymph % (Auto) [place] % (Auto) [place] # Seg Neutrophils % Seg Neuts % (Manual) Lymphocytes % (Manual) Monocytes % (Manual) Nucleated RBC % Seg Neutrophils # Seg Neutrophils # Man Lymphocytes # (Manual) Monocytes # (Manual) Eosinophils # (Manual) Basophils # (Manual) PT INR POC ABG pH ABG pH POC ABG pCO2 POC ABG pO2 ABG pO2 ABG O2 Saturation ABG Base Excess ABG Hemoglobin Oxyhemoglobin Sodium Potassium Chloride Carbon Dioxide 21 L BUN 80 H Creatinine 2.1 H Glucose 170 H POC Glucose 277 H 206 H Calcium 8.0 L Phosphorus Magnesium Iron TIBC Ferritin Total Bilirubin AST ALT Alkaline Phosphatase Total Creatine Kinase Troponin T C-Reactive Protein Total Protein Albumin Triglycerides HDL Cholesterol Miscellaneous Test Crossmatch 09/11/17 09/12/17 09/12/17 23:36 05:25 05:25 WBC 17.4 H RBC 2.29 L Hgb 6.7 L Hct 20.4 L MCV MCH MCHC RDW 21.2 H Plt Count Lymph % (Auto) [place] % (Auto) [place] # Seg Neutrophils % Seg Neuts % (Manual) 79.0 H Lymphocytes % (Manual) 5.0 L Monocytes % (Manual) Nucleated RBC % 1.0 H Seg Neutrophils # Seg Neutrophils # Man 13.7 H Lymphocytes # (Manual) 0.9 L Monocytes # (Manual) 1.2 H Eosinophils # (Manual) Basophils # (Manual) PT INR POC ABG pH ABG pH POC ABG pCO2 POC ABG pO2 ABG pO2 ABG O2 Saturation ABG Base Excess ABG Hemoglobin Oxyhemoglobin Sodium Potassium Chloride Carbon Dioxide BUN Creatinine Glucose POC Glucose 190 H Calcium Phosphorus Magnesium Iron 22 L TIBC 81 L Ferritin Total Bilirubin AST ALT Alkaline Phosphatase Total Creatine Kinase Troponin T C-Reactive Protein Total Protein Albumin Triglycerides HDL Cholesterol Miscellaneous Test Crossmatch 09/12/17 09/12/17 09/12/17 05:25 05:36 09:14 WBC RBC Hgb Hct MCV MCH MCHC RDW Plt Count Lymph % (Auto) [place] % (Auto) [place] # Seg Neutrophils % Seg Neuts % (Manual) Lymphocytes % (Manual) Monocytes % (Manual) Nucleated RBC % Seg Neutrophils # Seg Neutrophils # Man Lymphocytes # (Manual) Monocytes # (Manual) Eosinophils # (Manual) Basophils # (Manual) PT INR POC ABG pH ABG pH POC ABG pCO2 POC ABG pO2 ABG pO2 ABG O2 Saturation ABG Base Excess ABG Hemoglobin Oxyhemoglobin Sodium Potassium Chloride Carbon Dioxide BUN Creatinine Glucose POC Glucose 141 H Calcium Phosphorus Magnesium Iron TIBC Ferritin > 2000.0 H Total Bilirubin AST ALT Alkaline Phosphatase Total Creatine Kinase Troponin T C-Reactive Protein Total Protein Albumin Triglycerides HDL Cholesterol Miscellaneous Test Crossmatch See Detail 09/12/17 09/12/17 09/12/17 11:18 15:22 17:18 WBC RBC Hgb 8.5 L Hct 25.4 L MCV MCH MCHC RDW Plt Count Lymph % (Auto) [place] % (Auto) [place] # Seg Neutrophils % Seg Neuts % (Manual) Lymphocytes % (Manual) Monocytes % (Manual) Nucleated RBC % Seg Neutrophils # Seg Neutrophils # Man Lymphocytes # (Manual) Monocytes # (Manual) Eosinophils # (Manual) Basophils # (Manual) PT INR POC ABG pH ABG pH POC ABG pCO2 POC ABG pO2 ABG pO2 ABG O2 Saturation ABG Base Excess ABG Hemoglobin Oxyhemoglobin Sodium Potassium Chloride Carbon Dioxide BUN Creatinine Glucose POC Glucose 262 H 193 H Calcium Phosphorus Magnesium Iron TIBC Ferritin Total Bilirubin AST ALT Alkaline Phosphatase Total Creatine Kinase Troponin T C-Reactive Protein Total Protein Albumin Triglycerides HDL Cholesterol Miscellaneous Test Crossmatch 09/13/17 09/13/17 09/13/17 00:05 06:25 11:36 WBC RBC Hgb Hct MCV MCH MCHC RDW Plt Count Lymph % (Auto) [place] % (Auto) [place] # Seg Neutrophils % Seg Neuts % (Manual) Lymphocytes % (Manual) Monocytes % (Manual) Nucleated RBC % Seg Neutrophils # Seg Neutrophils # Man Lymphocytes # (Manual) Monocytes # (Manual) Eosinophils # (Manual) Basophils # (Manual) PT INR POC ABG pH 7.347 L ABG pH POC ABG pCO2 34.3 L POC ABG pO2 134 H ABG pO2 ABG O2 Saturation ABG Base Excess ABG Hemoglobin Oxyhemoglobin Sodium Potassium Chloride Carbon Dioxide BUN Creatinine Glucose POC Glucose 235 H 286 H Calcium Phosphorus Magnesium Iron TIBC Ferritin Total Bilirubin AST ALT Alkaline Phosphatase Total Creatine Kinase Troponin T C-Reactive Protein Total Protein Albumin Triglycerides HDL Cholesterol Miscellaneous Test Crossmatch 09/13/17 09/13/17 09/13/17 11:56 17:25 23:18 WBC RBC Hgb Hct MCV MCH MCHC RDW Plt Count Lymph % (Auto) [place] % (Auto) [place] # Seg Neutrophils % Seg Neuts % (Manual) Lymphocytes % (Manual) Monocytes % (Manual) Nucleated RBC % Seg Neutrophils # Seg Neutrophils # Man Lymphocytes # (Manual) Monocytes # (Manual) Eosinophils # (Manual) Basophils # (Manual) PT INR POC ABG pH ABG pH POC ABG pCO2 POC ABG pO2 ABG pO2 ABG O2 Saturation ABG Base Excess ABG Hemoglobin Oxyhemoglobin Sodium Potassium Chloride Carbon Dioxide BUN Creatinine Glucose POC Glucose 318 H 278 H 230 H Calcium Phosphorus Magnesium Iron TIBC Ferritin Total Bilirubin AST ALT Alkaline Phosphatase Total Creatine Kinase Troponin T C-Reactive Protein Total Protein Albumin Triglycerides HDL Cholesterol Miscellaneous Test Crossmatch 09/13/17 09/13/17 09/13/17 Unknown Unknown Unknown WBC 15.6 H RBC 2.72 L Hgb 8.1 L Hct 23.9 L MCV MCH MCHC RDW 19.5 H Plt Count 137 L Lymph % (Auto) [place] % (Auto) [place] # Seg Neutrophils % Seg Neuts % (Manual) 73.0 H Lymphocytes % (Manual) 3.0 L Monocytes % (Manual) 19.0 H Nucleated RBC % 2.0 H Seg Neutrophils # Seg Neutrophils # Man 11.4 H Lymphocytes # (Manual) 0.5 L Monocytes # (Manual) 3.0 H Eosinophils # (Manual) Basophils # (Manual) PT INR POC ABG pH ABG pH POC ABG pCO2 POC ABG pO2 ABG pO2 ABG O2 Saturation ABG Base Excess ABG Hemoglobin Oxyhemoglobin Sodium Potassium Chloride Carbon Dioxide 19 L BUN 103 H Creatinine 2.6 H Glucose 173 H POC Glucose Calcium Phosphorus Magnesium Iron TIBC Ferritin Total Bilirubin AST ALT Alkaline Phosphatase Total Creatine Kinase Troponin T C-Reactive Protein Total Protein Albumin < 0.2 L Triglycerides HDL Cholesterol Miscellaneous Test Crossmatch 09/14/17 09/14/17 09/14/17 03:15 03:15 05:16 WBC 12.5 H RBC 2.55 L Hgb 7.6 L Hct 22.5 L MCV MCH MCHC RDW 19.8 H Plt Count 139 L Lymph % (Auto) [place] % (Auto) [place] # Seg Neutrophils % Seg Neuts % (Manual) Lymphocytes % (Manual) Monocytes % (Manual) Nucleated RBC % Seg Neutrophils # Seg Neutrophils # Man Lymphocytes # (Manual) Monocytes # (Manual) Eosinophils # (Manual) Basophils # (Manual) PT INR POC ABG pH ABG pH POC ABG pCO2 POC ABG pO2 ABG pO2 ABG O2 Saturation ABG Base Excess ABG Hemoglobin Oxyhemoglobin Sodium Potassium Chloride Carbon Dioxide BUN 75 H Creatinine 2.1 H Glucose 217 H POC Glucose 283 H Calcium Phosphorus 2.20 L D Magnesium Iron TIBC Ferritin Total Bilirubin AST ALT Alkaline Phosphatase Total Creatine Kinase Troponin T C-Reactive Protein Total Protein Albumin Triglycerides HDL Cholesterol Miscellaneous Test Crossmatch 09/14/17 09/14/17 09/15/17 12:11 17:47 00:03 WBC RBC Hgb Hct MCV MCH MCHC RDW Plt Count Lymph % (Auto) [place] % (Auto) [place] # Seg Neutrophils % Seg Neuts % (Manual) Lymphocytes % (Manual) Monocytes % (Manual) Nucleated RBC % Seg Neutrophils # Seg Neutrophils # Man Lymphocytes # (Manual) Monocytes # (Manual) Eosinophils # (Manual) Basophils # (Manual) PT INR POC ABG pH ABG pH POC ABG pCO2 POC ABG pO2 ABG pO2 ABG O2 Saturation ABG Base Excess ABG Hemoglobin Oxyhemoglobin Sodium Potassium Chloride Carbon Dioxide BUN Creatinine Glucose POC Glucose 251 H 289 H 229 H Calcium Phosphorus Magnesium Iron TIBC Ferritin Total Bilirubin AST ALT Alkaline Phosphatase Total Creatine Kinase Troponin T C-Reactive Protein Total Protein Albumin Triglycerides HDL Cholesterol Miscellaneous Test Crossmatch 09/15/17 09/15/17 09/15/17 05:00 05:00 05:30 WBC 11.7 H RBC 2.50 L Hgb 7.4 L Hct 22.7 L MCV MCH MCHC RDW 20.5 H Plt Count Lymph % (Auto) [place] % (Auto) [place] # Seg Neutrophils % Seg Neuts % (Manual) Lymphocytes % (Manual) 11.0 L Monocytes % (Manual) 11.0 H Nucleated RBC % Seg Neutrophils # Seg Neutrophils # Man Lymphocytes # (Manual) Monocytes # (Manual) 1.3 H Eosinophils # (Manual) Basophils # (Manual) PT INR POC ABG pH ABG pH POC ABG pCO2 POC ABG pO2 ABG pO2 ABG O2 Saturation ABG Base Excess ABG Hemoglobin Oxyhemoglobin Sodium Potassium Chloride 97.0 L Carbon Dioxide 21 L BUN 94 H Creatinine 2.4 H Glucose 194 H POC Glucose 225 H Calcium Phosphorus Magnesium Iron TIBC Ferritin Total Bilirubin AST ALT Alkaline Phosphatase Total Creatine Kinase Troponin T C-Reactive Protein Total Protein Albumin Triglycerides HDL Cholesterol Miscellaneous Test Crossmatch 09/15/17 09/15/17 09/15/17 07:48 11:38 12:45 WBC RBC 1.93 L Hgb 5.7 L* Hct 17.1 L* MCV MCH MCHC RDW 20.2 H Plt Count 125 L Lymph % (Auto) [place] % (Auto) [place] # Seg Neutrophils % Seg Neuts % (Manual) 79.0 H Lymphocytes % (Manual) 8.0 L Monocytes % (Manual) Nucleated RBC % Seg Neutrophils # Seg Neutrophils # Man Lymphocytes # (Manual) 0.8 L Monocytes # (Manual) Eosinophils # (Manual) Basophils # (Manual) PT INR POC ABG pH ABG pH POC ABG pCO2 POC ABG pO2 ABG pO2 ABG O2 Saturation ABG Base Excess ABG Hemoglobin Oxyhemoglobin Sodium Potassium Chloride Carbon Dioxide BUN Creatinine Glucose POC Glucose 245 H 253 H Calcium Phosphorus Magnesium Iron TIBC Ferritin Total Bilirubin AST ALT Alkaline Phosphatase Total Creatine Kinase Troponin T C-Reactive Protein Total Protein Albumin Triglycerides HDL Cholesterol Miscellaneous Test Crossmatch 09/15/17 09/15/17 09/15/17 12:45 12:45 22:25 WBC 19.6 H RBC 3.32 L Hgb 10.0 L D Hct 29.3 L D MCV MCH MCHC RDW 17.0 H Plt Count 123 L Lymph % (Auto) [place] % (Auto) [place] # Seg Neutrophils % Seg Neuts % (Manual) Lymphocytes % (Manual) 12.0 L Monocytes % (Manual) Nucleated RBC % 5.0 H Seg Neutrophils # Seg Neutrophils # Man 11.0 H Lymphocytes # (Manual) Monocytes # (Manual) 1.2 H Eosinophils # (Manual) Basophils # (Manual) PT 15.4 H INR 1.16 H POC ABG pH ABG pH POC ABG pCO2 POC ABG pO2 ABG pO2 ABG O2 Saturation ABG Base Excess ABG Hemoglobin Oxyhemoglobin Sodium Potassium Chloride Carbon Dioxide BUN Creatinine Glucose POC Glucose Calcium Phosphorus Magnesium Iron TIBC Ferritin Total Bilirubin AST ALT Alkaline Phosphatase Total Creatine Kinase Troponin T C-Reactive Protein Total Protein Albumin Triglycerides HDL Cholesterol Miscellaneous Test Crossmatch See Detail 09/15/17 09/15/17 09/16/17 22:25 23:38 01:26 WBC RBC Hgb Hct MCV MCH MCHC RDW Plt Count Lymph % (Auto) [place] % (Auto) [place] # Seg Neutrophils % Seg Neuts % (Manual) Lymphocytes % (Manual) Monocytes % (Manual) Nucleated RBC % Seg Neutrophils # Seg Neutrophils # Man Lymphocytes # (Manual) Monocytes # (Manual) Eosinophils # (Manual) Basophils # (Manual) PT INR POC ABG pH ABG pH POC ABG pCO2 POC ABG pO2 ABG pO2 ABG O2 Saturation ABG Base Excess ABG Hemoglobin Oxyhemoglobin Sodium Potassium Chloride Carbon Dioxide 17 L BUN 100 H Creatinine 2.6 H Glucose POC Glucose 58 L 132 H Calcium 8.3 L Phosphorus Magnesium 1.60 L Iron TIBC Ferritin Total Bilirubin 2.80 H AST 118 H ALT Alkaline Phosphatase 316 H Total Creatine Kinase Troponin T C-Reactive Protein Total Protein 4.0 L Albumin 1.8 L Triglycerides HDL Cholesterol Miscellaneous Test Crossmatch 09/16/17 09/16/17 09/16/17 05:30 05:30 05:54 WBC 24.6 H RBC 3.22 L Hgb 9.8 L Hct 28.6 L MCV MCH MCHC RDW 17.4 H Plt Count 127 L Lymph % (Auto) [place] % (Auto) [place] # Seg Neutrophils % Seg Neuts % (Manual) Lymphocytes % (Manual) Monocytes % (Manual) Nucleated RBC % Seg Neutrophils # Seg Neutrophils # Man Lymphocytes # (Manual) Monocytes # (Manual) Eosinophils # (Manual) Basophils # (Manual) PT INR POC ABG pH ABG pH POC ABG pCO2 POC ABG pO2 ABG pO2 ABG O2 Saturation ABG Base Excess ABG Hemoglobin Oxyhemoglobin Sodium Potassium Chloride Carbon Dioxide 18 L BUN 109 H Creatinine 2.5 H Glucose 140 H POC Glucose 154 H Calcium Phosphorus 4.80 H Magnesium Iron TIBC Ferritin Total Bilirubin 2.40 H AST 90 H ALT Alkaline Phosphatase 298 H Total Creatine Kinase 20 L Troponin T C-Reactive Protein Total Protein 4.1 L Albumin 1.8 L Triglycerides HDL Cholesterol Miscellaneous Test Crossmatch 09/16/17 09/16/17 09/16/17 11:49 17:04 23:18 WBC RBC Hgb Hct MCV MCH MCHC RDW Plt Count Lymph % (Auto) [place] % (Auto) [place] # Seg Neutrophils % Seg Neuts % (Manual) Lymphocytes % (Manual) Monocytes % (Manual) Nucleated RBC % Seg Neutrophils # Seg Neutrophils # Man Lymphocytes # (Manual) Monocytes # (Manual) Eosinophils # (Manual) Basophils # (Manual) PT INR POC ABG pH ABG pH POC ABG pCO2 POC ABG pO2 ABG pO2 ABG O2 Saturation ABG Base Excess ABG Hemoglobin Oxyhemoglobin Sodium Potassium Chloride Carbon Dioxide BUN Creatinine Glucose POC Glucose 167 H 156 H 162 H Calcium Phosphorus Magnesium Iron TIBC Ferritin Total Bilirubin AST ALT Alkaline Phosphatase Total Creatine Kinase Troponin T C-Reactive Protein Total Protein Albumin Triglycerides HDL Cholesterol Miscellaneous Test Crossmatch 09/17/17 09/17/17 09/17/17 05:27 06:10 06:10 WBC 34.6 H RBC 2.75 L Hgb 8.4 L Hct 24.8 L MCV MCH MCHC RDW 18.3 H Plt Count Lymph % (Auto) [place] % (Auto) [place] # Seg Neutrophils % Seg Neuts % (Manual) 77.0 H Lymphocytes % (Manual) 5.0 L Monocytes % (Manual) Nucleated RBC % 2.0 H Seg Neutrophils # Seg Neutrophils # Man 26.6 H Lymphocytes # (Manual) Monocytes # (Manual) 2.4 H Eosinophils # (Manual) Basophils # (Manual) PT INR POC ABG pH ABG pH POC ABG pCO2 POC ABG pO2 ABG pO2 ABG O2 Saturation ABG Base Excess ABG Hemoglobin Oxyhemoglobin Sodium Potassium Chloride Carbon Dioxide BUN 82 H Creatinine 2.1 H Glucose 252 H POC Glucose 243 H Calcium 8.3 L Phosphorus Magnesium Iron TIBC Ferritin Total Bilirubin AST ALT Alkaline Phosphatase Total Creatine Kinase Troponin T C-Reactive Protein Total Protein Albumin Triglycerides HDL Cholesterol Miscellaneous Test Crossmatch 09/17/17 09/17/17 09/18/17 11:42 17:12 00:08 WBC RBC Hgb Hct MCV MCH MCHC RDW Plt Count Lymph % (Auto) [place] % (Auto) [place] # Seg Neutrophils % Seg Neuts % (Manual) Lymphocytes % (Manual) Monocytes % (Manual) Nucleated RBC % Seg Neutrophils # Seg Neutrophils # Man Lymphocytes # (Manual) Monocytes # (Manual) Eosinophils # (Manual) Basophils # (Manual) PT INR POC ABG pH ABG pH POC ABG pCO2 POC ABG pO2 ABG pO2 ABG O2 Saturation ABG Base Excess ABG Hemoglobin Oxyhemoglobin Sodium Potassium Chloride Carbon Dioxide BUN Creatinine Glucose POC Glucose 232 H 309 H 275 H Calcium Phosphorus Magnesium Iron TIBC Ferritin Total Bilirubin AST ALT Alkaline Phosphatase Total Creatine Kinase Troponin T C-Reactive Protein Total Protein Albumin Triglycerides HDL Cholesterol Miscellaneous Test Crossmatch 09/18/17 09/18/17 09/18/17 05:10 05:10 05:23 WBC 24.4 H RBC 2.57 L Hgb 7.8 L Hct 23.2 L MCV MCH MCHC RDW 19.5 H Plt Count Lymph % (Auto) [place] % (Auto) [place] # Seg Neutrophils % Seg Neuts % (Manual) 78.0 H Lymphocytes % (Manual) 6.0 L Monocytes % (Manual) Nucleated RBC % 2.0 H Seg Neutrophils # Seg Neutrophils # Man 19.0 H Lymphocytes # (Manual) Monocytes # (Manual) Eosinophils # (Manual) Basophils # (Manual) PT INR POC ABG pH ABG pH POC ABG pCO2 POC ABG pO2 ABG pO2 ABG O2 Saturation ABG Base Excess ABG Hemoglobin Oxyhemoglobin Sodium Potassium Chloride Carbon Dioxide BUN 103 H Creatinine 2.8 H Glucose 173 H POC Glucose 224 H Calcium Phosphorus Magnesium Iron TIBC Ferritin Total Bilirubin AST ALT Alkaline Phosphatase Total Creatine Kinase Troponin T C-Reactive Protein Total Protein Albumin Triglycerides HDL Cholesterol Miscellaneous Test Crossmatch 09/18/17 09/18/17 09/18/17 13:59 18:35 23:19 WBC RBC Hgb Hct MCV MCH MCHC RDW Plt Count Lymph % (Auto) [place] % (Auto) [place] # Seg Neutrophils % Seg Neuts % (Manual) Lymphocytes % (Manual) Monocytes % (Manual) Nucleated RBC % Seg Neutrophils # Seg Neutrophils # Man Lymphocytes # (Manual) Monocytes # (Manual) Eosinophils # (Manual) Basophils # (Manual) PT INR POC ABG pH ABG pH POC ABG pCO2 POC ABG pO2 ABG pO2 ABG O2 Saturation ABG Base Excess ABG Hemoglobin Oxyhemoglobin Sodium Potassium Chloride Carbon Dioxide BUN Creatinine Glucose POC Glucose 268 H 220 H 188 H Calcium Phosphorus Magnesium Iron TIBC Ferritin Total Bilirubin AST ALT Alkaline Phosphatase Total Creatine Kinase Troponin T C-Reactive Protein Total Protein Albumin Triglycerides HDL Cholesterol Miscellaneous Test Crossmatch 09/19/17 09/19/17 09/19/17 05:45 06:00 11:41 WBC 17.6 H RBC 2.57 L Hgb 7.9 L Hct 23.2 L MCV MCH MCHC RDW 19.0 H Plt Count Lymph % (Auto) [place] % (Auto) [place] # Seg Neutrophils % Seg Neuts % (Manual) Lymphocytes % (Manual) 9.0 L Monocytes % (Manual) Nucleated RBC % Seg Neutrophils # Seg Neutrophils # Man 11.4 H Lymphocytes # (Manual) Monocytes # (Manual) 0.9 H Eosinophils # (Manual) Basophils # (Manual) PT INR POC ABG pH ABG pH POC ABG pCO2 POC ABG pO2 ABG pO2 ABG O2 Saturation ABG Base Excess ABG Hemoglobin Oxyhemoglobin Sodium Potassium Chloride Carbon Dioxide BUN Creatinine Glucose POC Glucose 178 H 126 H Calcium Phosphorus Magnesium Iron TIBC Ferritin Total Bilirubin AST ALT Alkaline Phosphatase Total Creatine Kinase Troponin T C-Reactive Protein Total Protein Albumin Triglycerides HDL Cholesterol Miscellaneous Test Crossmatch 09/19/17 09/19/17 09/20/17 17:08 23:46 04:46 WBC RBC Hgb Hct MCV MCH MCHC RDW Plt Count Lymph % (Auto) [place] % (Auto) [place] # Seg Neutrophils % Seg Neuts % (Manual) Lymphocytes % (Manual) Monocytes % (Manual) Nucleated RBC % Seg Neutrophils # Seg Neutrophils # Man Lymphocytes # (Manual) Monocytes # (Manual) Eosinophils # (Manual) Basophils # (Manual) PT INR POC ABG pH ABG pH POC ABG pCO2 POC ABG pO2 ABG pO2 ABG O2 Saturation ABG Base Excess ABG Hemoglobin Oxyhemoglobin Sodium Potassium 5.2 H D Chloride 97.4 L Carbon Dioxide 20 L BUN 98 H Creatinine 2.4 H Glucose 187 H POC Glucose 263 H 161 H Calcium Phosphorus Magnesium Iron TIBC Ferritin Total Bilirubin AST ALT Alkaline Phosphatase Total Creatine Kinase Troponin T C-Reactive Protein Total Protein Albumin Triglycerides HDL Cholesterol Miscellaneous Test Crossmatch 09/20/17 09/20/17 09/20/17 05:38 11:36 11:41 WBC 24.5 H RBC 2.84 L Hgb 8.2 L Hct 26.2 L MCV MCH MCHC RDW 20.0 H Plt Count 470 H Lymph % (Auto) [place] % (Auto) [place] # Seg Neutrophils % Seg Neuts % (Manual) Lymphocytes % (Manual) Monocytes % (Manual) Nucleated RBC % Seg Neutrophils # Seg Neutrophils # Man Lymphocytes # (Manual) Monocytes # (Manual) Eosinophils # (Manual) Basophils # (Manual) PT INR POC ABG pH ABG pH POC ABG pCO2 POC ABG pO2 ABG pO2 ABG O2 Saturation ABG Base Excess ABG Hemoglobin Oxyhemoglobin Sodium Potassium Chloride Carbon Dioxide BUN Creatinine Glucose POC Glucose 215 H 220 H Calcium Phosphorus Magnesium Iron TIBC Ferritin Total Bilirubin AST ALT Alkaline Phosphatase Total Creatine Kinase Troponin T C-Reactive Protein Total Protein Albumin Triglycerides HDL Cholesterol Miscellaneous Test Crossmatch 09/20/17 09/21/17 09/21/17 17:45 00:51 04:00 WBC RBC Hgb Hct MCV MCH MCHC RDW Plt Count Lymph % (Auto) [place] % (Auto) [place] # Seg Neutrophils % Seg Neuts % (Manual) Lymphocytes % (Manual) Monocytes % (Manual) Nucleated RBC % Seg Neutrophils # Seg Neutrophils # Man Lymphocytes # (Manual) Monocytes # (Manual) Eosinophils # (Manual) Basophils # (Manual) PT INR POC ABG pH ABG pH POC ABG pCO2 POC ABG pO2 ABG pO2 ABG O2 Saturation ABG Base Excess ABG Hemoglobin Oxyhemoglobin Sodium Potassium 3.2 L D Chloride 96.4 L Carbon Dioxide BUN 63 H Creatinine 1.8 H Glucose 204 H POC Glucose 122 H 137 H Calcium 8.3 L Phosphorus 2.10 L D Magnesium 1.50 L Iron TIBC Ferritin Total Bilirubin AST ALT Alkaline Phosphatase Total Creatine Kinase Troponin T C-Reactive Protein Total Protein Albumin Triglycerides HDL Cholesterol Miscellaneous Test Crossmatch 09/21/17 09/21/17 09/21/17 05:45 08:30 11:50 WBC 27.5 H RBC 2.52 L Hgb 7.7 L Hct 22.8 L MCV MCH MCHC RDW 19.2 H Plt Count 457 H Lymph % (Auto) [place] % (Auto) [place] # Seg Neutrophils % Seg Neuts % (Manual) Lymphocytes % (Manual) Monocytes % (Manual) Nucleated RBC % Seg Neutrophils # Seg Neutrophils # Man Lymphocytes # (Manual) Monocytes # (Manual) Eosinophils # (Manual) Basophils # (Manual) PT INR POC ABG pH ABG pH POC ABG pCO2 POC ABG pO2 ABG pO2 ABG O2 Saturation ABG Base Excess ABG Hemoglobin Oxyhemoglobin Sodium Potassium Chloride Carbon Dioxide BUN Creatinine Glucose POC Glucose 243 H Calcium Phosphorus Magnesium Iron TIBC Ferritin Total Bilirubin AST ALT Alkaline Phosphatase Total Creatine Kinase Troponin T C-Reactive Protein Total Protein Albumin Triglycerides HDL Cholesterol Miscellaneous Test Crossmatch See Detail 09/21/17 09/21/17 09/22/17 13:03 16:39 00:09 WBC RBC Hgb Hct MCV MCH MCHC RDW Plt Count Lymph % (Auto) [place] % (Auto) [place] # Seg Neutrophils % Seg Neuts % (Manual) Lymphocytes % (Manual) Monocytes % (Manual) Nucleated RBC % Seg Neutrophils # Seg Neutrophils # Man Lymphocytes # (Manual) Monocytes # (Manual) Eosinophils # (Manual) Basophils # (Manual) PT INR POC ABG pH ABG pH POC ABG pCO2 POC ABG pO2 ABG pO2 ABG O2 Saturation ABG Base Excess ABG Hemoglobin Oxyhemoglobin Sodium Potassium Chloride Carbon Dioxide BUN Creatinine Glucose POC Glucose 271 H 160 H 191 H Calcium Phosphorus Magnesium Iron TIBC Ferritin Total Bilirubin AST ALT Alkaline Phosphatase Total Creatine Kinase Troponin T C-Reactive Protein Total Protein Albumin Triglycerides HDL Cholesterol Miscellaneous Test Crossmatch 09/22/17 09/22/17 09/22/17 03:37 05:40 07:35 WBC 29.7 H RBC 2.71 L Hgb 8.1 L Hct 24.1 L MCV MCH MCHC RDW 19.6 H Plt Count 491 H Lymph % (Auto) [place] % (Auto) [place] # Seg Neutrophils % Seg Neuts % (Manual) 70.5 H Lymphocytes % (Manual) 12.5 L Monocytes % (Manual) 10.0 H Nucleated RBC % 2.0 H Seg Neutrophils # Seg Neutrophils # Man 20.9 H Lymphocytes # (Manual) Monocytes # (Manual) 3.0 H Eosinophils # (Manual) Basophils # (Manual) PT INR POC ABG pH ABG pH POC ABG pCO2 POC ABG pO2 ABG pO2 ABG O2 Saturation ABG Base Excess ABG Hemoglobin Oxyhemoglobin Sodium Potassium 3.0 L Chloride 95.9 L Carbon Dioxide BUN 74 H Creatinine 2.1 H Glucose 126 H POC Glucose 150 H Calcium Phosphorus 2.10 L Magnesium 1.40 L Iron TIBC Ferritin Total Bilirubin AST ALT Alkaline Phosphatase 311 H Total Creatine Kinase Troponin T C-Reactive Protein Total Protein 4.4 L Albumin 2.0 L Triglycerides HDL Cholesterol Miscellaneous Test Crossmatch 09/22/17 09/23/17 09/23/17 12:20 05:02 05:02 WBC 37.5 H RBC 2.54 L Hgb 7.3 L Hct 22.9 L MCV MCH MCHC RDW 19.4 H Plt Count 471 H Lymph % (Auto) [place] % (Auto) [place] # Seg Neutrophils % Seg Neuts % (Manual) Lymphocytes % (Manual) 8.0 L Monocytes % (Manual) Nucleated RBC % 1.0 H Seg Neutrophils # Seg Neutrophils # Man 15.0 H Lymphocytes # (Manual) Monocytes # (Manual) 1.9 H Eosinophils # (Manual) Basophils # (Manual) PT INR POC ABG pH ABG pH POC ABG pCO2 POC ABG pO2 ABG pO2 ABG O2 Saturation ABG Base Excess ABG Hemoglobin Oxyhemoglobin Sodium 136 L Potassium 3.0 L Chloride 93.8 L Carbon Dioxide BUN 99 H Creatinine 2.7 H Glucose POC Glucose 106 H Calcium 8.2 L Phosphorus 2.40 L Magnesium Iron TIBC Ferritin Total Bilirubin AST ALT Alkaline Phosphatase Total Creatine Kinase Troponin T C-Reactive Protein Total Protein Albumin Triglycerides HDL Cholesterol Miscellaneous Test Crossmatch 09/23/17 09/23/17 09/23/17 05:39 11:21 18:19 WBC RBC Hgb Hct MCV MCH MCHC RDW Plt Count Lymph % (Auto) [place] % (Auto) [place] # Seg Neutrophils % Seg Neuts % (Manual) Lymphocytes % (Manual) Monocytes % (Manual) Nucleated RBC % Seg Neutrophils # Seg Neutrophils # Man Lymphocytes # (Manual) Monocytes # (Manual) Eosinophils # (Manual) Basophils # (Manual) PT INR POC ABG pH ABG pH POC ABG pCO2 POC ABG pO2 ABG pO2 ABG O2 Saturation ABG Base Excess ABG Hemoglobin Oxyhemoglobin Sodium Potassium Chloride Carbon Dioxide BUN Creatinine Glucose POC Glucose 118 H 130 H 189 H Calcium Phosphorus Magnesium Iron TIBC Ferritin Total Bilirubin AST ALT Alkaline Phosphatase Total Creatine Kinase Troponin T C-Reactive Protein Total Protein Albumin Triglycerides HDL Cholesterol Miscellaneous Test Crossmatch 09/23/17 09/24/17 09/24/17 23:55 04:00 04:00 WBC 37.8 H RBC 2.76 L Hgb 8.1 L Hct 24.8 L MCV MCH MCHC RDW 19.8 H Plt Count 539 H Lymph % (Auto) [place] % (Auto) [place] # Seg Neutrophils % Seg Neuts % (Manual) Lymphocytes % (Manual) 4.0 L Monocytes % (Manual) Nucleated RBC % 6.0 H Seg Neutrophils # Seg Neutrophils # Man 19.3 H Lymphocytes # (Manual) Monocytes # (Manual) 1.5 H Eosinophils # (Manual) Basophils # (Manual) 0.4 H PT INR POC ABG pH ABG pH POC ABG pCO2 POC ABG pO2 ABG pO2 ABG O2 Saturation ABG Base Excess ABG Hemoglobin Oxyhemoglobin Sodium Potassium 3.5 L Chloride 95.2 L Carbon Dioxide BUN 67 H Creatinine 1.9 H Glucose 140 H POC Glucose 120 H Calcium 8.2 L Phosphorus 2.00 L Magnesium Iron TIBC Ferritin Total Bilirubin AST ALT Alkaline Phosphatase Total Creatine Kinase Troponin T C-Reactive Protein Total Protein Albumin Triglycerides HDL Cholesterol Miscellaneous Test Crossmatch 09/24/17 09/24/17 09/24/17 04:00 05:33 12:16 WBC RBC Hgb Hct MCV MCH MCHC RDW Plt Count Lymph % (Auto) [place] % (Auto) [place] # Seg Neutrophils % Seg Neuts % (Manual) Lymphocytes % (Manual) Monocytes % (Manual) Nucleated RBC % Seg Neutrophils # Seg Neutrophils # Man Lymphocytes # (Manual) Monocytes # (Manual) Eosinophils # (Manual) Basophils # (Manual) PT INR POC ABG pH ABG pH POC ABG pCO2 POC ABG pO2 ABG pO2 ABG O2 Saturation ABG Base Excess ABG Hemoglobin Oxyhemoglobin Sodium Potassium Chloride Carbon Dioxide BUN Creatinine Glucose POC Glucose 178 H 262 H Calcium Phosphorus Magnesium Iron TIBC Ferritin Total Bilirubin AST ALT Alkaline Phosphatase Total Creatine Kinase Troponin T C-Reactive Protein Total Protein Albumin Triglycerides HDL Cholesterol Miscellaneous Test Crossmatch See Detail 09/24/17 09/24/17 09/25/17 17:51 23:33 06:03 WBC RBC Hgb Hct MCV MCH MCHC RDW Plt Count Lymph % (Auto) [place] % (Auto) [place] # Seg Neutrophils % Seg Neuts % (Manual) Lymphocytes % (Manual) Monocytes % (Manual) Nucleated RBC % Seg Neutrophils # Seg Neutrophils # Man Lymphocytes # (Manual) Monocytes # (Manual) Eosinophils # (Manual) Basophils # (Manual) PT INR POC ABG pH ABG pH POC ABG pCO2 POC ABG pO2 ABG pO2 ABG O2 Saturation ABG Base Excess ABG Hemoglobin Oxyhemoglobin Sodium Potassium Chloride Carbon Dioxide BUN Creatinine Glucose POC Glucose 166 H 142 H 173 H Calcium Phosphorus Magnesium Iron TIBC Ferritin Total Bilirubin AST ALT Alkaline Phosphatase Total Creatine Kinase Troponin T C-Reactive Protein Total Protein Albumin Triglycerides HDL Cholesterol Miscellaneous Test Crossmatch 09/25/17 09/25/17 09/25/17 07:49 07:49 11:36 WBC 59.6 H* RBC 2.63 L Hgb 7.7 L Hct 26.0 L MCV 99 H MCH MCHC RDW 21.8 H Plt Count Lymph % (Auto) [place] % (Auto) [place] # Seg Neutrophils % Seg Neuts % (Manual) Lymphocytes % (Manual) 2.0 L Monocytes % (Manual) Nucleated RBC % 8.0 H Seg Neutrophils # Seg Neutrophils # Man 41.7 H Lymphocytes # (Manual) Monocytes # (Manual) 1.2 H Eosinophils # (Manual) Basophils # (Manual) PT INR POC ABG pH ABG pH POC ABG pCO2 POC ABG pO2 ABG pO2 ABG O2 Saturation ABG Base Excess ABG Hemoglobin Oxyhemoglobin Sodium Potassium 5.3 H D Chloride 97.7 L Carbon Dioxide 19 L BUN 90 H Creatinine 2.5 H Glucose 181 H POC Glucose 308 H Calcium 8.0 L Phosphorus Magnesium Iron TIBC Ferritin Total Bilirubin AST ALT Alkaline Phosphatase Total Creatine Kinase Troponin T C-Reactive Protein Total Protein Albumin Triglycerides HDL Cholesterol Miscellaneous Test Crossmatch 09/25/17 09/25/17 09/26/17 16:11 23:38 05:25 WBC 61.9 H* RBC 2.30 L Hgb 7.0 L Hct 21.4 L MCV MCH MCHC RDW 21.3 H Plt Count Lymph % (Auto) [place] % (Auto) [place] # Seg Neutrophils % Seg Neuts % (Manual) Lymphocytes % (Manual) 1.0 L Monocytes % (Manual) Nucleated RBC % 7.0 H Seg Neutrophils # Seg Neutrophils # Man 37.1 H Lymphocytes # (Manual) 0.6 L Monocytes # (Manual) 1.9 H Eosinophils # (Manual) Basophils # (Manual) PT INR POC ABG pH ABG pH POC ABG pCO2 POC ABG pO2 ABG pO2 ABG O2 Saturation ABG Base Excess ABG Hemoglobin Oxyhemoglobin Sodium Potassium Chloride Carbon Dioxide BUN Creatinine Glucose POC Glucose 249 H 263 H Calcium Phosphorus Magnesium Iron TIBC Ferritin Total Bilirubin AST ALT Alkaline Phosphatase Total Creatine Kinase Troponin T C-Reactive Protein Total Protein Albumin Triglycerides HDL Cholesterol Miscellaneous Test Crossmatch 09/26/17 09/26/17 09/26/17 05:25 05:32 11:33 WBC RBC Hgb Hct MCV MCH MCHC RDW Plt Count Lymph % (Auto) Lipscomb % (Auto) Lipscomb # Seg Neutrophils % Seg Neuts % (Manual) Lymphocytes % (Manual) Monocytes % (Manual) Nucleated RBC % Seg Neutrophils # Seg Neutrophils # Man Lymphocytes # (Manual) Monocytes # (Manual) Eosinophils # (Manual) Basophils # (Manual) PT INR POC ABG pH ABG pH POC ABG pCO2 POC ABG pO2 ABG pO2 ABG O2 Saturation ABG Base Excess ABG Hemoglobin Oxyhemoglobin Sodium Potassium Chloride Carbon Dioxide 21 L BUN 81 H Creatinine 2.3 H Glucose 178 H POC Glucose 225 H 246 H Calcium 8.1 L Phosphorus Magnesium Iron TIBC Ferritin Total Bilirubin AST ALT Alkaline Phosphatase Total Creatine Kinase Troponin T C-Reactive Protein Total Protein Albumin Triglycerides HDL Cholesterol Miscellaneous Test Crossmatch 09/26/17 09/27/17 09/27/17 17:43 00:11 04:00 WBC 63.0 H* RBC 2.23 L Hgb 6.3 L Hct 20.6 L MCV MCH MCHC RDW 20.6 H Plt Count Lymph % (Auto) Lipscomb % (Auto) Lipscomb # Seg Neutrophils % Seg Neuts % (Manual) Lymphocytes % (Manual) 3.0 L Monocytes % (Manual) Nucleated RBC % 6.0 H Seg Neutrophils # Seg Neutrophils # Man 40.3 H Lymphocytes # (Manual) Monocytes # (Manual) 4.4 H Eosinophils # (Manual) Basophils # (Manual) PT INR POC ABG pH ABG pH POC ABG pCO2 POC ABG pO2 ABG pO2 ABG O2 Saturation ABG Base Excess ABG Hemoglobin Oxyhemoglobin Sodium Potassium Chloride Carbon Dioxide BUN Creatinine Glucose POC Glucose 180 H 194 H Calcium Phosphorus Magnesium Iron TIBC Ferritin Total Bilirubin AST ALT Alkaline Phosphatase Total Creatine Kinase Troponin T C-Reactive Protein Total Protein Albumin Triglycerides HDL Cholesterol Miscellaneous Test Crossmatch 09/27/17 09/27/17 09/27/17 04:00 04:00 05:11 WBC RBC Hgb Hct MCV MCH MCHC RDW Plt Count Lymph % (Auto) [place]comb % (Auto) [place]comb # Seg Neutrophils % Seg Neuts % (Manual) Lymphocytes % (Manual) Monocytes % (Manual) Nucleated RBC % Seg Neutrophils # Seg Neutrophils # Man Lymphocytes # (Manual) Monocytes # (Manual) Eosinophils # (Manual) Basophils # (Manual) PT INR POC ABG pH ABG pH POC ABG pCO2 POC ABG pO2 ABG pO2 ABG O2 Saturation ABG Base Excess ABG Hemoglobin Oxyhemoglobin Sodium Potassium Chloride Carbon Dioxide 19 L BUN 102 H Creatinine 2.8 H Glucose 141 H POC Glucose 189 H Calcium 8.1 L Phosphorus Magnesium 2.40 H Iron TIBC Ferritin Total Bilirubin AST ALT Alkaline Phosphatase Total Creatine Kinase Troponin T C-Reactive Protein Total Protein Albumin Triglycerides HDL Cholesterol Miscellaneous Test Crossmatch 09/27/17 09/27/17 09/27/17 08:58 11:54 17:20 WBC RBC Hgb Hct MCV MCH MCHC RDW Plt Count Lymph % (Auto) [place]comb % (Auto) [place]comb # Seg Neutrophils % Seg Neuts % (Manual) Lymphocytes % (Manual) Monocytes % (Manual) Nucleated RBC % Seg Neutrophils # Seg Neutrophils # Man Lymphocytes # (Manual) Monocytes # (Manual) Eosinophils # (Manual) Basophils # (Manual) PT INR POC ABG pH ABG pH POC ABG pCO2 POC ABG pO2 ABG pO2 ABG O2 Saturation ABG Base Excess ABG Hemoglobin Oxyhemoglobin Sodium Potassium Chloride Carbon Dioxide BUN Creatinine Glucose POC Glucose 196 H 199 H Calcium Phosphorus Magnesium Iron TIBC Ferritin Total Bilirubin AST ALT Alkaline Phosphatase Total Creatine Kinase Troponin T C-Reactive Protein Total Protein Albumin Triglycerides HDL Cholesterol Miscellaneous Test Crossmatch See Detail 09/28/17 09/28/17 09/28/17 00:11 05:23 12:07 WBC RBC Hgb Hct MCV MCH MCHC RDW Plt Count Lymph % (Auto) [place]comb % (Auto) [place]comb # Seg Neutrophils % Seg Neuts % (Manual) Lymphocytes % (Manual) Monocytes % (Manual) Nucleated RBC % Seg Neutrophils # Seg Neutrophils # Man Lymphocytes # (Manual) Monocytes # (Manual) Eosinophils # (Manual) Basophils # (Manual) PT INR POC ABG pH ABG pH POC ABG pCO2 POC ABG pO2 ABG pO2 ABG O2 Saturation ABG Base Excess ABG Hemoglobin Oxyhemoglobin Sodium Potassium Chloride Carbon Dioxide BUN Creatinine Glucose POC Glucose 155 H 237 H 218 H Calcium Phosphorus Magnesium Iron TIBC Ferritin Total Bilirubin AST ALT Alkaline Phosphatase Total Creatine Kinase Troponin T C-Reactive Protein Total Protein Albumin Triglycerides HDL Cholesterol Miscellaneous Test Crossmatch 09/28/17 09/28/17 09/28/17 17:58 Unknown Unknown WBC 39.0 H RBC 3.10 L Hgb 9.6 L D Hct 27.6 L D MCV MCH MCHC 35 H RDW 17.1 H Plt Count Lymph % (Auto) [place]comb % (Auto) [place]comb # Seg Neutrophils % Seg Neuts % (Manual) 80.5 H Lymphocytes % (Manual) 0.5 L Monocytes % (Manual) Nucleated RBC % Seg Neutrophils # Seg Neutrophils # Man 31.4 H Lymphocytes # (Manual) 0.2 L Monocytes # (Manual) 2.5 H Eosinophils # (Manual) Basophils # (Manual) PT INR POC ABG pH ABG pH POC ABG pCO2 POC ABG pO2 ABG pO2 ABG O2 Saturation ABG Base Excess ABG Hemoglobin Oxyhemoglobin Sodium Potassium 3.4 L D Chloride Carbon Dioxide BUN 72 H Creatinine 2.0 H Glucose 194 H POC Glucose 108 H Calcium 7.4 L Phosphorus Magnesium Iron TIBC Ferritin Total Bilirubin AST ALT Alkaline Phosphatase Total Creatine Kinase Troponin T C-Reactive Protein Total Protein Albumin Triglycerides HDL Cholesterol Miscellaneous Test Crossmatch 09/29/17 09/29/17 09/29/17 00:12 06:00 06:00 WBC 28.0 H RBC 2.92 L Hgb 8.7 L Hct 26.5 L MCV MCH MCHC RDW 17.1 H Plt Count Lymph % (Auto) [place]comb % (Auto) [place]comb # Seg Neutrophils % Seg Neuts % (Manual) 74.5 H Lymphocytes % (Manual) 5.5 L Monocytes % (Manual) 10.5 H Nucleated RBC % Seg Neutrophils # Seg Neutrophils # Man 20.9 H Lymphocytes # (Manual) Monocytes # (Manual) 2.9 H Eosinophils # (Manual) Basophils # (Manual) PT INR POC ABG pH ABG pH POC ABG pCO2 POC ABG pO2 ABG pO2 ABG O2 Saturation ABG Base Excess ABG Hemoglobin Oxyhemoglobin Sodium Potassium Chloride 97.9 L Carbon Dioxide BUN 101 H Creatinine 2.5 H Glucose 177 H POC Glucose 117 H Calcium 7.6 L Phosphorus Magnesium Iron TIBC Ferritin Total Bilirubin AST ALT Alkaline Phosphatase Total Creatine Kinase Troponin T C-Reactive Protein Total Protein Albumin Triglycerides HDL Cholesterol Miscellaneous Test Crossmatch 09/29/17 09/29/17 09/29/17 06:27 11:50 17:27 WBC RBC Hgb Hct MCV MCH MCHC RDW Plt Count Lymph % (Auto) [place]comb % (Auto) [place]comb # Seg Neutrophils % Seg Neuts % (Manual) Lymphocytes % (Manual) Monocytes % (Manual) Nucleated RBC % Seg Neutrophils # Seg Neutrophils # Man Lymphocytes # (Manual) Monocytes # (Manual) Eosinophils # (Manual) Basophils # (Manual) PT INR POC ABG pH ABG pH POC ABG pCO2 POC ABG pO2 ABG pO2 ABG O2 Saturation ABG Base Excess ABG Hemoglobin Oxyhemoglobin Sodium Potassium Chloride Carbon Dioxide BUN Creatinine Glucose POC Glucose 183 H 209 H 150 H Calcium Phosphorus Magnesium Iron TIBC Ferritin Total Bilirubin AST ALT Alkaline Phosphatase Total Creatine Kinase Troponin T C-Reactive Protein Total Protein Albumin Triglycerides HDL Cholesterol Miscellaneous Test Crossmatch 09/30/17 09/30/17 09/30/17 05:20 05:20 05:31 WBC 23.0 H RBC 2.64 L Hgb 7.9 L Hct 23.9 L MCV MCH MCHC RDW 18.1 H Plt Count Lymph % (Auto) [place]comb % (Auto) [place]comb # Seg Neutrophils % Seg Neuts % (Manual) 29.0 L Lymphocytes % (Manual) Monocytes % (Manual) 11.0 H Nucleated RBC % Seg Neutrophils # Seg Neutrophils # Man Lymphocytes # (Manual) Monocytes # (Manual) 2.5 H Eosinophils # (Manual) Basophils # (Manual) PT INR POC ABG pH ABG pH POC ABG pCO2 POC ABG pO2 ABG pO2 ABG O2 Saturation ABG Base Excess ABG Hemoglobin Oxyhemoglobin Sodium Potassium Chloride 97.0 L Carbon Dioxide 20 L BUN 120 H Creatinine 2.9 H Glucose 126 H POC Glucose 143 H Calcium 8.2 L Phosphorus Magnesium Iron TIBC Ferritin Total Bilirubin AST ALT Alkaline Phosphatase Total Creatine Kinase Troponin T C-Reactive Protein Total Protein Albumin Triglycerides HDL Cholesterol Miscellaneous Test Crossmatch 09/30/17 09/30/17 10/01/17 11:24 23:40 05:45 WBC RBC Hgb Hct MCV MCH MCHC RDW Plt Count Lymph % (Auto) [place]comb % (Auto) [place] # Seg Neutrophils % Seg Neuts % (Manual) Lymphocytes % (Manual) Monocytes % (Manual) Nucleated RBC % Seg Neutrophils # Seg Neutrophils # Man Lymphocytes # (Manual) Monocytes # (Manual) Eosinophils # (Manual) Basophils # (Manual) PT INR POC ABG pH ABG pH POC ABG pCO2 POC ABG pO2 ABG pO2 ABG O2 Saturation ABG Base Excess ABG Hemoglobin Oxyhemoglobin Sodium Potassium Chloride Carbon Dioxide BUN 83 H Creatinine 2.2 H Glucose 140 H POC Glucose 197 H 121 H Calcium Phosphorus 2.40 L D Magnesium Iron TIBC Ferritin Total Bilirubin AST ALT Alkaline Phosphatase Total Creatine Kinase Troponin T C-Reactive Protein Total Protein Albumin Triglycerides HDL Cholesterol Miscellaneous Test Crossmatch 10/01/17 10/01/17 10/01/17 05:45 05:48 12:29 WBC 23.0 H RBC 2.60 L Hgb 7.8 L Hct 23.8 L MCV MCH MCHC RDW 17.5 H Plt Count Lymph % (Auto) [place]comb % (Auto) [place]comb # Seg Neutrophils % Seg Neuts % (Manual) 81.0 H Lymphocytes % (Manual) 2.0 L Monocytes % (Manual) 10.0 H Nucleated RBC % Seg Neutrophils # Seg Neutrophils # Man 18.6 H Lymphocytes # (Manual) 0.5 L Monocytes # (Manual) 2.3 H Eosinophils # (Manual) Basophils # (Manual) PT INR POC ABG pH ABG pH POC ABG pCO2 POC ABG pO2 ABG pO2 ABG O2 Saturation ABG Base Excess ABG Hemoglobin Oxyhemoglobin Sodium Potassium Chloride Carbon Dioxide BUN Creatinine Glucose POC Glucose 123 H 191 H Calcium Phosphorus Magnesium Iron TIBC Ferritin Total Bilirubin AST ALT Alkaline Phosphatase Total Creatine Kinase Troponin T C-Reactive Protein Total Protein Albumin Triglycerides HDL Cholesterol Miscellaneous Test Crossmatch 10/01/17 10/02/17 10/02/17 17:46 05:00 05:27 WBC RBC Hgb Hct MCV MCH MCHC RDW Plt Count Lymph % (Auto) [place]comb % (Auto) [place] # Seg Neutrophils % Seg Neuts % (Manual) Lymphocytes % (Manual) Monocytes % (Manual) Nucleated RBC % Seg Neutrophils # Seg Neutrophils # Man Lymphocytes # (Manual) Monocytes # (Manual) Eosinophils # (Manual) Basophils # (Manual) PT INR POC ABG pH ABG pH POC ABG pCO2 POC ABG pO2 ABG pO2 ABG O2 Saturation ABG Base Excess ABG Hemoglobin Oxyhemoglobin Sodium Potassium Chloride Carbon Dioxide BUN 108 H Creatinine 2.5 H Glucose 113 H POC Glucose 56 L 120 H Calcium Phosphorus Magnesium Iron TIBC Ferritin Total Bilirubin AST ALT Alkaline Phosphatase Total Creatine Kinase Troponin T C-Reactive Protein Total Protein Albumin Triglycerides HDL Cholesterol Miscellaneous Test Crossmatch 10/02/17 10/02/17 10/02/17 10:05 11:57 19:14 WBC 18.1 H RBC 2.67 L Hgb 8.0 L Hct 24.1 L MCV MCH MCHC RDW 17.1 H Plt Count Lymph % (Auto) [place] % (Auto) [place] # Seg Neutrophils % Seg Neuts % (Manual) Lymphocytes % (Manual) 5.0 L Monocytes % (Manual) 17.0 H Nucleated RBC % Seg Neutrophils # Seg Neutrophils # Man 12.5 H Lymphocytes # (Manual) 0.9 L Monocytes # (Manual) 3.1 H Eosinophils # (Manual) Basophils # (Manual) PT INR POC ABG pH ABG pH POC ABG pCO2 POC ABG pO2 ABG pO2 ABG O2 Saturation ABG Base Excess ABG Hemoglobin Oxyhemoglobin Sodium Potassium Chloride Carbon Dioxide BUN Creatinine Glucose POC Glucose 162 H 189 H Calcium Phosphorus Magnesium Iron TIBC Ferritin Total Bilirubin AST ALT Alkaline Phosphatase Total Creatine Kinase Troponin T C-Reactive Protein Total Protein Albumin Triglycerides HDL Cholesterol Miscellaneous Test Crossmatch 10/02/17 10/03/17 10/03/17 23:50 04:00 06:14 WBC 16.2 H RBC 2.76 L Hgb 8.0 L Hct 24.9 L MCV MCH MCHC RDW 17.1 H Plt Count Lymph % (Auto) [place]comb % (Auto) [place] # Seg Neutrophils % Seg Neuts % (Manual) 71.0 H Lymphocytes % (Manual) 9.0 L Monocytes % (Manual) 17.0 H Nucleated RBC % Seg Neutrophils # Seg Neutrophils # Man 11.5 H Lymphocytes # (Manual) Monocytes # (Manual) 2.8 H Eosinophils # (Manual) Basophils # (Manual) PT INR POC ABG pH ABG pH POC ABG pCO2 POC ABG pO2 ABG pO2 ABG O2 Saturation ABG Base Excess ABG Hemoglobin Oxyhemoglobin Sodium Potassium Chloride Carbon Dioxide BUN Creatinine Glucose POC Glucose 159 H 162 H Calcium Phosphorus Magnesium Iron TIBC Ferritin Total Bilirubin AST ALT Alkaline Phosphatase Total Creatine Kinase Troponin T C-Reactive Protein Total Protein Albumin Triglycerides HDL Cholesterol Miscellaneous Test Crossmatch 10/03/17 10:05 WBC RBC Hgb Hct MCV MCH MCHC RDW Plt Count Lymph % (Auto) [place] % (Auto) [place] # Seg Neutrophils % Seg Neuts % (Manual) Lymphocytes % (Manual) Monocytes % (Manual) Nucleated RBC % Seg Neutrophils # Seg Neutrophils # Man Lymphocytes # (Manual) Monocytes # (Manual) Eosinophils # (Manual) Basophils # (Manual) PT INR POC ABG pH ABG pH POC ABG pCO2 POC ABG pO2 ABG pO2 ABG O2 Saturation ABG Base Excess ABG Hemoglobin Oxyhemoglobin Sodium Potassium Chloride Carbon Dioxide BUN Creatinine Glucose POC Glucose 148 H Calcium Phosphorus Magnesium Iron TIBC Ferritin Total Bilirubin AST ALT Alkaline Phosphatase Total Creatine Kinase Troponin T C-Reactive Protein Total Protein Albumin Triglycerides HDL Cholesterol Miscellaneous Test Crossmatch
[2017-10-03] MEDS ORDERED: NACL 0.9% 500 ML 500 ML ONE (12:13)
--- NOTE | 2017-10-03 12:22 | XRay Report ---
AP CHEST: HISTORY: Central line placement A left IJ venous catheter has been inserted which terminates in the mid to lower SVC. 2 right venous catheters are unchanged since 09/24/17. There is mild to moderate cardiomegaly and mild central pulmonary venous congestion. Partial atelectasis is suspected in the left lower lobe. The remainder of the lungs are clear. No pneumothorax. IMPRESSION: The left IJ venous catheter terminates in the mid to lower SVC.
[2017-10-03] MEDS ORDERED: NACL 0.9% 500 ML 500 ML IV SCH (13:00)
[2017-10-03] MEDS ORDERED: XYLOCAINE 1% 20 mL ONE ×2 (13:35→17:59)
--- NOTE | 2017-10-03 13:47 | Procedure Note ---
Date of procedure: 10/03/17 Pre-op diagnosis: sepsis Post-op diagnosis: same Procedure: Nair catheter removal Anesthesia: local Surgeon: KISHA GRANDA Estimated blood loss: none Pathology: none Specimen disposition: other (catheter tip sent for culture) Condition: critical Disposition: ICU
[2017-10-03] MEDS ORDERED: XYLOCAINE 1% 20 mL INFILTRATI ONE ×2 (15:18→19:22)
--- NOTE | 2017-10-03 16:24 | XRay Report ---
G-tube study. History: Evaluate for leak. Findings: A pre-and post injection image were obtained. 50 mL of contrast was injected. The contrast is confirmed within the lumen of the stomach and duodenum. Impression: Normal study.
--- NOTE | 2017-10-03 16:27 | XRay Report ---
AP chest x-ray. History: Central line placement. Findings: Since the earlier study on today's day, the 2 right jugular catheters have been removed. A left internal jugular catheter terminates in the upper SVC, and there is no evidence of pneumothorax. Cardiomegaly persists with mild central venous congestion. Left lower lobe atelectasis is also unchanged.
[2017-10-03] MEDS: D50W (25GM) Vial IV PRN ×2 (17:20→23:40)
[2017-10-03] MEDS ORDERED: METHYLENE BLUE IRRIGATION STA (17:29)
--- NOTE | 2017-10-03 18:39 | Progress Note ---
Assessment and Plan 62 y.o. F s/p ex lap, repair of enterotomy, then s/p ex lap, transverse colon resection, colostomy creation, and s/p ex lap, abdominal wash out and abdominal wall closure after wound dehiscence 3 weeks s/p ex lap for gastric perforation and sbo. complicated patient with hx of several abdominal procedures this admission, starting with surgery for SBO and gastric perforation. Most recently, s/p exlap and repair of enterotomy and midline closure with biologic mesh due to dehiscence -G tube study to eval if leak: per g tube study- contrast remains in stomach. Methylene blue irrigated in G tube then clamped. no apparent blue noted in midline or MERVIN drains. Will keep G tube clamped overnight and reasses MERVIN drains in am. If blue is noted in midline or JPs overnight- please unclamp G tube and place to gravity. If no blue is noted in Jps or midline tomorrow am, the trickle feeds can be restarted. I will be here the am to assess. leukocytosis- abx per ID: line holiday scheduled +cultures- yeast. micafungin Nurtrition: TPN for nutritional support. wound care: -wound vac not possible due to retention suture- will continue daily to BID dressing changes. Once retention sutures removed, possible wound vac. -santyl to border of wound at site of fat necrosis. -Monitor ostomy site - mucocutaneous seperation occuring medial portion of ostomy. will contact wound care in am. Renal : HD per renal DVT proph: scds GI: PPI. - Patient Problems (1) Peritonitis (acute) generalized Current Visit: Yes Status: Acute Subjective Narrative: Pt seen at beside. Currently on Levo at 8-decreased compared to yesterday. LIJ TLC placed. Tube feeds held since yesterday due to concern for leaking G tube since Mervin drainage appeared to have Tube feed colored liquid in bulbs. G tube study performed as well. Outputs: Mervin upper: 15cc white/cream Mervin Lower: 195 white/yellow creamy fluid Tmax 101 Objective Vital Signs - 12hr 10/03/17 10/03/17 10/03/17 06:45 07:00 07:15 Temperature Pulse Rate 105 H 106 H 91 H Respiratory 25 H 27 H 21 Rate Blood Pressure 122/56 112/59 99/52 O2 Sat by Pulse 98 98 99 Oximetry 10/03/17 10/03/17 10/03/17 07:30 07:45 07:51 Temperature 100.8 F H Pulse Rate 110 H 105 H Respiratory 27 H 30 H Rate Blood Pressure 126/64 123/53 O2 Sat by Pulse 99 99 Oximetry 10/03/17 10/03/17 10/03/17 08:00 08:15 08:30 Temperature Pulse Rate 107 H 111 H 113 H Respiratory 27 H 29 H 23 Rate Blood Pressure 118/60 125/67 123/62 O2 Sat by Pulse 99 98 98 Oximetry 10/03/17 10/03/17 10/03/17 08:45 09:00 09:15 Temperature Pulse Rate 115 H 111 H 112 H Respiratory 27 H 28 H 27 H Rate Blood Pressure 116/65 138/57 141/60 O2 Sat by Pulse 97 98 98 Oximetry 10/03/17 10/03/17 10/03/17 09:30 09:34 09:45 Temperature Pulse Rate 118 H 113 H 116 H Respiratory 37 H 34 H Rate Blood Pressure 143/66 123/62 129/60 O2 Sat by Pulse 99 98 98 Oximetry 10/03/17 10/03/17 10/03/17 10:00 10:15 10:30 Temperature Pulse Rate 110 H 114 H 112 H Respiratory 36 H 37 H 24 Rate Blood Pressure 124/53 123/59 130/59 O2 Sat by Pulse 99 99 98 Oximetry 10/03/17 10/03/17 10/03/17 10:45 11:00 11:15 Temperature Pulse Rate 118 H 117 H 117 H Respiratory 21 20 14 Rate Blood Pressure 133/63 124/71 134/74 O2 Sat by Pulse 98 99 97 Oximetry 10/03/17 10/03/17 10/03/17 11:30 11:45 12:00 Temperature 99.8 F H Pulse Rate 109 H 105 H 110 H Respiratory 33 H 33 H 33 H Rate Blood Pressure 113/58 121/54 121/54 O2 Sat by Pulse 98 97 98 Oximetry 10/03/17 10/03/17 10/03/17 12:15 12:30 12:45 Temperature Pulse Rate 109 H 109 H 104 H Respiratory 34 H 35 H 29 H Rate Blood Pressure 110/45 109/50 118/52 O2 Sat by Pulse 97 97 98 Oximetry 10/03/17 10/03/17 10/03/17 13:00 13:15 13:30 Temperature Pulse Rate 111 H 103 H 104 H Respiratory 37 H 36 H 35 H Rate Blood Pressure 122/58 107/49 105/44 O2 Sat by Pulse 97 98 98 Oximetry 10/03/17 10/03/17 10/03/17 13:45 14:00 14:16 Temperature Pulse Rate 115 H 113 H 108 H Respiratory 39 H 36 H 24 Rate Blood Pressure 102/46 108/49 121/49 O2 Sat by Pulse 97 97 98 Oximetry 10/03/17 10/03/17 10/03/17 14:30 14:35 14:45 Temperature Pulse Rate 105 H 107 H Respiratory 32 H Rate Blood Pressure 115/61 121/54 124/56 O2 Sat by Pulse 96 98 98 Oximetry 10/03/17 10/03/17 10/03/17 15:00 15:16 15:30 Temperature Pulse Rate 101 H 112 H 108 H Respiratory 33 H 37 H 31 H Rate Blood Pressure 111/50 111/50 111/50 O2 Sat by Pulse 98 99 98 Oximetry 10/03/17 10/03/17 15:46 16:00 Temperature 99.3 F Pulse Rate 93 H Respiratory 36 H Rate Blood Pressure 111/50 O2 Sat by Pulse 98 Oximetry - General physical appearance chronically ill, obese - Neck other (trach midline, no drainge ro bleeding . vent ) - Respiratory normal respiratory effort - Abdomen other (midline dressing removed. coleman/yellow discharge in midline . irrigate with saline and suctioned. non foul smell. colostomy- patent, liquid coleman brown stool. midline irrigated. G tube irrigated with methylene blue and clamped. no blue in JPs drains or seen at midline wound. wound repacked with calcium alginate and guaze. ) - Integumentary no rash, no growths - Neurologic other (responds to pain ) - Labs 10/03/17 04:00 10/02/17 05:00
--- NOTE | 2017-10-03 19:31 | Progress Note ---
Assessment and Plan Assessment and plan: 62 yo female with abdominal abscess and peritonitis s/p surgical intervention complicated with bowel obstruction/surgical wound infection/dehiscence and multiple surgical reinterventions, with respiratory failure and refractory hypotension Acute bacterial peritonitis/intra-abdominal abscess/bowel obstruction S/p PD catheter removal and multiple exploratory laparatomy 08/17 expl lap - abscess LUQ, bowel obstruction, ?perforation of unclear location ; PDs cath removal, abd washout, G tube placement 08/31 expl lap with washout and closure 09/15 expl lap transverse colectomy, right-sided colostomy, washout 09/24 expl lap abdominal washout, placement of biological mesh, closure of small bowel enterotomy Complicated with wound infection, dehiscence Multiple antibiotic courses per ID recommendation; completed 7 day course of meropenem and fluconazole Septic shock Due to abdominal abscess and catheter associated UTI Completed antibiotics courses Still requiring Levophed and Midodrine Now with candidemia; started on micafungin Acute hypoxic respiratory failure Status post trach Still on vent, PSV trials Weaning per pulmonary as tolerated End-stage renal disease Previously on PD, s/p cath removal and switched to HD Nephro following and assessing HD needs Anemia Blood loss anemia + anemia of chronic disease S/p PRBCs Epogen with HD Monitor H&H Ulcerative esophagitis/small gastric ulcer S/p EGD S/p multiple transfusions On PPI CAUTI Completed antibiotics Pancreatitis Resolved Leukocytosis Slowly trending down Monitor ID following NSVT Cardiology believes that it was secondary to Levophed History of cervical surgery Wheelchair bound since then Pain control Penicillin allergy ? Has taken keflex in the past w/o problems Malnutrition Was on TPN Started on TF, but having high residuals DVT prophylaxis SCDs History Interval history: remains on levophed, running fever Hospitalist Physical - Constitutional Vitals: Temp Pulse Resp BP Pulse Ox 99.3 F 120 H 36 H 124/60 99 10/03/17 16:00 10/03/17 18:46 10/03/17 18:46 10/03/17 18:46 10/03/17 18:46 General appearance: Present: mild distress, obese - EENT Eyes: Present: PERRL, EOM intact - Neck Neck: Present: supple. Absent: enlarged thyroid, masses or JVD - Respiratory Respiratory effort: other (intubated) Respiratory: bilateral: diminished, rhonchi, negative: wheezing - Cardiovascular Rhythm: other (tachycardic) Heart Sounds: Present: S1 & S2. Absent: systolic murmur - Extremities Extremities: no ischemia - Abdominal General gastrointestinal: soft, tender, other (J tube, MERVIN drain, ostomy) - Neurologic Neurologic: other (paraplegia) Results - Labs CBC & Chem 7: 10/03/17 04:00 10/02/17 05:00 Labs: Laboratory Last Values WBC 16.2 K/mm3 (4.5-11.0) H 10/03/17 04:00 RBC 2.76 M/mm3 (3.65-5.03) L 10/03/17 04:00 Hgb 8.0 gm/dl (10.1-14.3) L 10/03/17 04:00 Hct 24.9 % (30.3-42.9) L 10/03/17 04:00 MCV 90 fl (79-97) 10/03/17 04:00 MCH 29 pg (28-32) 10/03/17 04:00 MCHC 32 % (30-34) 10/03/17 04:00 RDW 17.1 % (13.2-15.2) H 10/03/17 04:00 Plt Count 298 K/mm3 (140-440) 10/03/17 04:00 Lymph % (Auto) Client Application Support Engineer 08/19/17 07:37 [place] % (Auto) Client Application Support Engineer 10/03/17 04:00 Eos % (Auto) Client Application Support Engineer 08/19/17 07:37 Baso % (Auto) Client Application Support Engineer 08/19/17 07:37 Lymph # Client Application Support Engineer 09/26/17 05:25 [place] # Client Application Support Engineer 08/19/17 07:37 Eos # Client Application Support Engineer 08/19/17 07:37 Baso # Client Application Support Engineer 08/19/17 07:37 Add Manual Diff Complete 10/03/17 04:00 Total Counted 100 10/03/17 04:00 Seg Neutrophils % Client Application Support Engineer 09/08/17 04:05 Seg Neuts % (Manual) 71.0 % (40.0-70.0) H 10/03/17 04:00 Band Neutrophils % 3.0 % 10/03/17 04:00 Lymphocytes % (Manual) 9.0 % (13.4-35.0) L 10/03/17 04:00 Reactive Lymphs % (Man) 0 % 10/03/17 04:00 Monocytes % (Manual) 17.0 % (0.0-7.3) H 10/03/17 04:00 Eosinophils % (Manual) 0 % (0.0-4.3) 10/03/17 04:00 Basophils % (Manual) 0 % (0.0-1.8) 10/03/17 04:00 Metamyelocytes % 0 % 10/03/17 04:00 Myelocytes % 0 % 10/03/17 04:00 Promyelocytes % 0 % 10/03/17 04:00 Blast Cells % 0 % 10/03/17 04:00 Nucleated RBC % Not Reportable 10/03/17 04:00 Seg Neutrophils # Client Application Support Engineer 08/19/17 07:37 Seg Neutrophils # Man 11.5 K/mm3 (1.8-7.7) H 10/03/17 04:00 Band Neutrophils # 0.5 K/mm3 10/03/17 04:00 Lymphocytes # (Manual) 1.5 K/mm3 (1.2-5.4) 10/03/17 04:00 Abs React Lymphs (Man) 0.0 K/mm3 10/03/17 04:00 Monocytes # (Manual) 2.8 K/mm3 (0.0-0.8) H 10/03/17 04:00 Eosinophils # (Manual) 0.0 K/mm3 (0.0-0.4) 10/03/17 04:00 Basophils # (Manual) 0.0 K/mm3 (0.0-0.1) 10/03/17 04:00 Metamyelocytes # 0.0 K/mm3 10/03/17 04:00 Myelocytes # 0.0 K/mm3 10/03/17 04:00 Promyelocytes # 0.0 K/mm3 10/03/17 04:00 Blast Cells # 0.0 K/mm3 10/03/17 04:00 Pathologist Review Not Reportable 08/30/17 05:20 WBC Morphology Not Reportable 10/03/17 04:00 Hypersegmented Neuts Not Reportable 10/03/17 04:00 Hyposegmented Neuts Not Reportable 10/03/17 04:00 Hypogranular Neuts Not Reportable 10/03/17 04:00 Smudge Cells Not Reportable 10/03/17 04:00 Toxic Granulation Not Reportable 10/03/17 04:00 Toxic Vacuolation Not Reportable 10/03/17 04:00 Dohle Bodies Not Reportable 10/03/17 04:00 Pelger-Huet Anomaly Not Reportable 10/03/17 04:00 Ariel Rods Not Reportable 10/03/17 04:00 Platelet Estimate Consistent w auto 10/03/17 04:00 Clumped Platelets Not Reportable 10/03/17 04:00 Plt Clumps, EDTA Not Reportable 10/03/17 04:00 Large Platelets Not Reportable 10/03/17 04:00 Giant Platelets Not Reportable 10/03/17 04:00 Platelet Satelliting Not Reportable 10/03/17 04:00 Plt Morphology Comment Not Reportable 10/03/17 04:00 RBC Morphology Not Reportable 10/03/17 04:00 Dimorphic RBCs Not Reportable 10/03/17 04:00 Polychromasia Rare 10/03/17 04:00 Hypochromasia Rare 10/03/17 04:00 Poikilocytosis Not Reportable 10/03/17 04:00 Anisocytosis 1+ 10/03/17 04:00 Microcytosis Not Reportable 10/03/17 04:00 Macrocytosis Not Reportable 10/03/17 04:00 Spherocytes Not Reportable 10/03/17 04:00 Pappenheimer Bodies Not Reportable 10/03/17 04:00 Sickle Cells Not Reportable 10/03/17 04:00 Target Cells Not Reportable 10/03/17 04:00 Tear Drop Cells Not Reportable 10/03/17 04:00 Ovalocytes Not Reportable 10/03/17 04:00 Stomatocytes Rare 09/12/17 05:25 Helmet Cells Not Reportable 10/03/17 04:00 Vera-Gildford Bodies Not Reportable 10/03/17 04:00 Altair Rings Not Reportable 10/03/17 04:00 Yusuf Cells Not Reportable 10/03/17 04:00 Bite Cells Not Reportable 10/03/17 04:00 Crenated Cell Not Reportable 10/03/17 04:00 Elliptocytes Not Reportable 10/03/17 04:00 Acanthocytes (Spur) Not Reportable 10/03/17 04:00 Rouleaux Not Reportable 10/03/17 04:00 Hemoglobin C Crystals Not Reportable 10/03/17 04:00 Schistocytes Rare 10/03/17 04:00 Malaria parasites Not Reportable 10/03/17 04:00 Jovanni Bodies Not Reportable 10/03/17 04:00 Hem Pathologist Commnt No 10/03/17 04:00 PT 14.9 Sec. (12.2-14.9) 09/21/17 07:00 INR 1.11 (0.87-1.13) 09/21/17 07:00 APTT 28.7 Sec. (24.2-36.6) 08/31/17 18:15 POC ABG pH 7.347 (7.35-7.45) L 09/13/17 11:36 ABG pH 7.323 pH Units (7.350-7.450) L 09/09/17 Unknown POC ABG pCO2 34.3 (35-45) L 09/13/17 11:36 ABG pCO2 41.1 mm Hg 09/09/17 Unknown POC ABG pO2 134 (80-105) H 09/13/17 11:36 ABG pO2 94.1 mm Hg (80.0-90.0) H 09/09/17 Unknown POC ABG HCO3 18.8 09/13/17 11:36 ABG HCO3 20.9 mmol/L (20.0-26.0) 09/09/17 Unknown POC ABG Total CO2 20 09/13/17 11:36 POC ABG O2 Sat 99 09/13/17 11:36 ABG O2 Saturation 97.2 % (95.0-99.0) 09/09/17 Unknown ABG O2 Content 10.9 (0.0-44) 09/09/17 Unknown POC ABG Base Excess -7 09/13/17 11:36 ABG Base Excess -4.8 mmol/L (-2.0-3.0) L 09/09/17 Unknown ABG Hemoglobin 8.0 gm/dl (12.0-16.0) L 09/09/17 Unknown ABG Carboxyhemoglobin 2.0 % (0.0-5.0) 09/09/17 Unknown ABG Methemoglobin 0.3 % (0.0-1.5) 09/09/17 Unknown VBG pH 7.462 (7.320-7.420) H 08/08/17 14:52 Oxyhemoglobin 94.9 % (95.0-99.0) L 09/09/17 Unknown FiO2 30 % 09/13/17 11:36 Sodium 142 mmol/L (137-145) 10/02/17 05:00 Potassium 4.2 mmol/L (3.6-5.0) 10/02/17 05:00 Chloride 99.9 mmol/L (98-107) 10/02/17 05:00 Carbon Dioxide 22 mmol/L (22-30) 10/02/17 05:00 Anion Gap 24 mmol/L 10/02/17 05:00 BUN 108 mg/dL (7-17) H 10/02/17 05:00 Creatinine 2.5 mg/dL (0.7-1.2) H 10/02/17 05:00 Estimated GFR 24 ml/min 10/02/17 05:00 BUN/Creatinine Ratio 43 % 10/02/17 05:00 Glucose 113 mg/dL (65-100) H 10/02/17 05:00 POC Glucose 42 (70-105) L 10/03/17 17:10 Lactic Acid 1.60 mmol/L (0.7-2.0) 08/17/17 11:20 Calcium 8.4 mg/dL (8.4-10.2) 10/02/17 05:00 Phosphorus 2.70 mg/dL (2.5-4.5) 10/02/17 05:00 Magnesium 1.80 mg/dL (1.7-2.3) 10/02/17 05:00 Iron 22 ug/dL (37-170) L 09/12/17 05:25 TIBC 81 mcg/dL (250-450) L 09/12/17 05:25 Ferritin > 2000.0 ng/mL (13.0-400.0) H 09/12/17 05:25 Total Bilirubin 0.70 mg/dL (0.1-1.2) 09/22/17 03:37 Direct Bilirubin 0.2 mg/dL (0-0.2) 08/08/17 14:11 Indirect Bilirubin 0.3 mg/dL 08/08/17 14:11 AST 33 units/L (5-40) 09/22/17 03:37 ALT 16 units/L (7-56) 09/22/17 03:37 Alkaline Phosphatase 311 units/L (35-129) H 09/22/17 03:37 Ammonia 25.0 umol/L (25-60) 08/08/17 14:52 Total Creatine Kinase 20 units/L (30-135) L 09/16/17 05:30 Troponin T 0.132 ng/mL (0.00-0.029) H* 08/09/17 13:25 C-Reactive Protein 2.80 mg/dL (0.00-1.30) H 09/06/17 05:30 NT-Pro-B Natriuret Pep 6156 pg/mL (0-900) H 08/08/17 14:11 Total Protein 4.4 g/dL (6.3-8.2) L 09/22/17 03:37 Albumin 2.0 g/dL (3.9-5) L 09/22/17 03:37 Albumin/Globulin Ratio 0.8 % 09/22/17 03:37 Triglycerides 180 mg/dL (2-149) H 09/03/17 04:00 Cholesterol 91 mg/dL (50-199) 08/08/17 21:23 LDL Cholesterol Direct 53 mg/dL (50-130) 08/08/17 21:23 HDL Cholesterol 26 mg/dL (40-59) L 08/08/17 21:23 Cholesterol/HDL Ratio 3.50 % 08/08/17 21:23 Amylase 45 units/L (27-131) 08/16/17 09:50 Lipase 34 units/L (13-60) 08/16/17 09:50 TSH 6.580 mlU/mL (0.270-4.200) H 08/08/17 14:22 Free T4 1.46 ng/dL (0.76-1.46) 08/08/17 14:22 Total Cortisol 28.3 mcg/dL () 09/13/17 12:50 Urine Color Yellow (Yellow) 08/08/17 20:15 Urine Turbidity Turbid (Clear) 08/08/17 20:15 Urine pH 8.0 (5.0-7.0) H 08/08/17 20:15 Ur Specific [place] 1.015 (1.003-1.030) 09/14/17 20:15 Urine Protein 100 mg/dl mg/dL (Negative) 08/08/17 20:15 Urine Glucose (UA) Neg mg/dL (Negative) 08/08/17 20:15 Urine Ketones Neg mg/dL (Negative) 08/08/17 20:15 Urine Blood Mod (Negative) 08/08/17 20:15 Urine Nitrite Neg (Negative) 08/08/17 20:15 Urine Bilirubin Neg (Negative) 08/08/17 20:15 Urine Urobilinogen < 2.0 mg/dL (<2.0) 08/08/17 20:15 Ur Leukocyte Esterase Lg (Negative) 08/08/17 20:15 Urine WBC (Auto) 24.0 /HPF (0.0-6.0) H 08/08/17 20:15 Urine RBC (Auto) 3.0 /HPF (0.0-6.0) 08/08/17 20:15 U Epithel Cells (Auto) 3.0 /HPF (0-13.0) 08/08/17 20:15 Urine Bacteria (Auto) 4+ /HPF (Negative) 08/08/17 20:15 Urine Mucus 3+ /HPF 08/08/17 20:15 Fluid Type Peritoneal 08/08/17 18:18 Fluid Color Straw 08/08/17 18:18 Fluid Appearance Clear 08/08/17 18:18 Fluid pH 7.74 08/08/17 18:18 Fluid WBC 4 /mm3 08/08/17 18:18 Fluid RBC 1 /mm3 08/08/17 18:18 Fluid Seg Neutrophils 12 % 08/08/17 18:18 Fluid Lymphocytes 0 % 08/08/17 18:18 Fluid Reactive Lymphs 0 % 08/08/17 18:18 Fluid Monocytes 1 % 08/08/17 18:18 Fluid Eosinophils 0 % 08/08/17 18:18 Fluid Basophils 0 % 08/08/17 18:18 Fluid Glucose 315 mg/dL (40-70) H 08/08/17 18:18 Random Vancomycin 19.5 ug/mL (0-40.0) 08/22/17 03:40 Hep Bs Antigen Non-reactive (Negative) 08/22/17 03:40 Hepatitis C Antibody Non-reactive (NonReactive) 08/22/17 03:40 Miscellaneous Test Flexitest 1 H 09/06/17 09:57 Blood Type O POSITIVE 09/27/17 08:58 Antibody Screen Negative 09/27/17 08:58 VAN Antibody Screen Negative 09/07/17 17:07 Crossmatch See Detail 09/27/17 08:58
--- NOTE | 2017-10-03 19:45 | Progress Note ---
Assessment and Plan - Patient Problems (1) Leukocytosis Current Visit: Yes Status: Acute Qualifiers: Leukocytosis type: L Plan to address problem: See notes above. make sure that PD access is clean also. see notes. Probably infection from the infected PD catheter. improving. back up again. up/down continue to monitor. it continuos to rise. still high. improved. Back up. Now improving again. still in the same range as yesterday.. worse today. 37,000 59,000 61.9 63,000. 39,000 today. 28,000. 23,000 Down to 18,000 16,000. (2) Anemia Current Visit: Yes Status: Acute Qualifiers: Anemia type: A Iron deficiency anemia type: I Vitamin B12 deficiency anemia type: V Folate deficiency anemia type: F Bone marrow failure anemia type: B Hemolytic anemia type: H Other causes of anemia: O Chronic kidney disease stage: C Plan to address problem: see notes , monitor labs,. see notes above. continue to monitor labs with you. blood transfusion. S/P replacement transfusion. fair. s/p 1unit transfusion. see notes. Still at 7.4 6.9, scheduled for replacement. Fairly stable at this time. continue to monitor. If less, or equal to 7.0, will need replacement transfusion, with HD. Fair at this time. 7.7 today 7.0, needs blood with next HD. 6.3, and transfused. better post transfusion. stable. (3) Acute respiratory failure Current Visit: Yes Status: Acute Qualifiers: Respiratory failure complication: R Plan to address problem: follow pulm. Subjective Date of service: 10/03/17 Principal diagnosis: respiratory failure, sepsis, shock rectal bleeding Interval history: Patient seen today/examined, labs reviewed, case d/w she, and family.complaints of abdominal pain. Patient resting in bed in the ICU, post vascular procedure. labs reviewed, Reactive thrombocytosis, anemia of CD, leukocytosis from infection vs inflamatory process. Patient seen/examined, in bed in the ICU, on the vent post surgery.Labs reviewed , notes reviewed. will continue to monitor labs/patient with you. Replacement transfusion, if /when indicated. patient seen/examined, SBP75, on pressors., lethargic, on the vent, labs reviewed, wbc 39,000 Patient seen/examined, case reviewed, d/w her sister at the bed side. Patient seen/examined, labs reviewed, notes reviewed. severe septic shock from infected PD catheter The high wbc is all infection related. H?H low, and may get replacement transfusion with the next HD. Prognosis remain quite poor. Patient seen/examined, extubated, now on V Mask. labs reviewed. patient seen/examined, resting in bed, still some what lethargic . labs reviewed. Patient seen/examined, resting in bed., some difficulty with breathing./ lethargic. patient seen/examined, resting in bed, looked much better labs reviewed, and fair over all. Patient seen/examined, resting in bed, labs reviewed, case d/w her. Patient seen/examined, resting in bed on BIPAP., labs reviewed. patient seen/examined, resting in bed, on Bipap.labs reviewed, fairly stable. Patient seen today, resting in bed, labs reviewed, H/H low, and transfusion already ordered. Patient seen/examined, resting in bed, transferred back to the unit, due to resp failure. She is now on venting mask. had blood replacement done. Patient seen/examined in the ICU.labs reviewed. patient intubated this am. patient resting in bed.no new issues. Patient seen/examined in the ICU, on vent,Not readily responsive. patient seen, resting in bed, no new cbc ready.will order for today. Patient seen, resting in vent, labs reviewed.notes reviewed also. patient seen/examined, resting on vent, had HD yesterday, and today., labs reviewed. Patient seen, resting in bed, labs reviewed.fairly stable labs, except the wbc. Patient seen/examined, rtesting in bed on the vent.Labs reviewed, wbc still elevated, Hgb dropped slightly. Patient seen/examined, labs reviewed, hgb 7.3, if 7.0 or less, will replace .unless otherwise indicated. Patient seen/examined, alert but lethargic.sedation drip turned down.she is s/p 1unit PRBC replacement with HD today. Patient seen/examined, labs reviewed, hgb still not quite enough at 7.5, perhaps with the next HD,can use 1-2 units. Patient seen/examined, resting in bed, trached, labs re viewed. Patient seen/examined, resting in bed, responds to name calling, SBP99, labs reviewed, Hgb 6.9, PRBC replacement ordered by primary. Patient seen/examined, in bed/trach, NGT., alert/lethargic. Patient seen/examined, resting in bed, still lethargic, labs reviewed, and still fair.Will continue to follow you. Patient seen/examined, resting in bed, labs reviewed. HD in progress.She is now getting daily HD.Labs reviewed, and still fair. Patient seen/examined, resting in bed, less lethargic/less toxic looking. labs have improved. Patient seen/examined, labs reviewed, fair, case d/w her spouse at the bed side. Patient seen/examined, resting ok in bed, alert, NAD, HD in progress.Labs reviewed, and WBC 27,000, Hgb 7.8. Patient seen/examined, resting in bed in the ICU, NAD.labs reviewed, and fair. Patient seen/examined, resting in bed, labs reviewed, WBC back up,to37,000, and Hgb down to 7.3, transfusion will be needed ,if hgb less, or equal to 7.0 Patient seen/examined, resting in bed in the ICU, alert, lethargic, labs reviewed, and fair. She remains on 5mics of levophed., Temp 100. Patient seen/examined in the ICU, alert, Labs reviewed, WBC 59,000. Patient seen/examined, resting in bed, labs reviewed, WBC up to 61.9,000, Hgb 7.0, and may benefit from PRBC replacement of 2units with HD. Patient seen/examined, resting in bed, easily awoken.Hgb low at 6.3, replaced earlier with HD today.will need repeat labs in am. Patient seen/examined today, resting in bed in the ICU, labs reviewed, WBC down again to 39,000., H/H stable, post transfusion. Patient seen/examined, labs reviewed, case d/w her spouse at the bed side. WBC down to 28,000. patient seen/examined, resting in bed, more alert today, wbc better. Patient seen/examined, resting in bed, labs reviewed, case d/w her family at the bed side in the ICU. she is alert, WBC still down at 23,000 Patient seen, resting in bed, labs reviewed, and fair, including the WBC. Patient seen/examined, resting in bed in the icu, labs reviewed, and remains stable, including the WBC. Objective - Constitutional Vitals: Vital Signs - 12hr 10/03/17 10/03/17 10/03/17 07:45 07:51 08:00 Temperature 100.8 F H Pulse Rate 105 H 107 H Respiratory 30 H 27 H Rate Blood Pressure 123/53 118/60 O2 Sat by Pulse 99 99 Oximetry 10/03/17 10/03/17 10/03/17 08:15 08:30 08:45 Temperature Pulse Rate 111 H 113 H 115 H Respiratory 29 H 23 27 H Rate Blood Pressure 125/67 123/62 116/65 O2 Sat by Pulse 98 98 97 Oximetry 10/03/17 10/03/17 10/03/17 09:00 09:15 09:30 Temperature Pulse Rate 111 H 112 H 118 H Respiratory 28 H 27 H 37 H Rate Blood Pressure 138/57 141/60 143/66 O2 Sat by Pulse 98 98 99 Oximetry 10/03/17 10/03/17 10/03/17 09:34 09:45 10:00 Temperature Pulse Rate 113 H 116 H 110 H Respiratory 34 H 36 H Rate Blood Pressure 123/62 129/60 124/53 O2 Sat by Pulse 98 98 99 Oximetry 10/03/17 10/03/17 10/03/17 10:15 10:30 10:45 Temperature Pulse Rate 114 H 112 H 118 H Respiratory 37 H 24 21 Rate Blood Pressure 123/59 130/59 133/63 O2 Sat by Pulse 99 98 98 Oximetry 10/03/17 10/03/17 10/03/17 11:00 11:15 11:30 Temperature Pulse Rate 117 H 117 H 109 H Respiratory 20 14 33 H Rate Blood Pressure 124/71 134/74 113/58 O2 Sat by Pulse 99 97 98 Oximetry 10/03/17 10/03/17 10/03/17 11:45 12:00 12:15 Temperature 99.8 F H Pulse Rate 105 H 110 H 109 H Respiratory 33 H 33 H 34 H Rate Blood Pressure 121/54 121/54 110/45 O2 Sat by Pulse 97 98 97 Oximetry 10/03/17 10/03/17 10/03/17 12:30 12:45 13:00 Temperature Pulse Rate 109 H 104 H 111 H Respiratory 35 H 29 H 37 H Rate Blood Pressure 109/50 118/52 122/58 O2 Sat by Pulse 97 98 97 Oximetry 10/03/17 10/03/17 10/03/17 13:15 13:30 13:45 Temperature Pulse Rate 103 H 104 H 115 H Respiratory 36 H 35 H 39 H Rate Blood Pressure 107/49 105/44 102/46 O2 Sat by Pulse 98 98 97 Oximetry 10/03/17 10/03/17 10/03/17 14:00 14:16 14:30 Temperature Pulse Rate 113 H 108 H Respiratory 36 H 24 Rate Blood Pressure 108/49 121/49 115/61 O2 Sat by Pulse 97 98 96 Oximetry 10/03/17 10/03/17 10/03/17 14:35 14:45 15:00 Temperature Pulse Rate 105 H 107 H 101 H Respiratory 32 H 33 H Rate Blood Pressure 121/54 124/56 111/50 O2 Sat by Pulse 98 98 98 Oximetry 10/03/17 10/03/17 10/03/17 15:16 15:30 15:46 Temperature Pulse Rate 112 H 108 H 93 H Respiratory 37 H 31 H 36 H Rate Blood Pressure 111/50 111/50 111/50 O2 Sat by Pulse 99 98 98 Oximetry 10/03/17 10/03/17 10/03/17 16:00 16:16 16:30 Temperature 99.3 F Pulse Rate 105 H 112 H 94 H Respiratory 32 H 32 H 34 H Rate Blood Pressure 125/59 125/59 125/59 O2 Sat by Pulse 97 99 99 Oximetry 10/03/17 10/03/17 10/03/17 16:46 17:00 17:16 Temperature Pulse Rate 113 H 111 H 113 H Respiratory 25 H 25 H 15 Rate Blood Pressure 125/59 124/60 124/60 O2 Sat by Pulse 98 97 97 Oximetry 10/03/17 10/03/17 10/03/17 17:30 17:46 18:00 Temperature Pulse Rate 116 H 122 H 119 H Respiratory 19 37 H 27 H Rate Blood Pressure 124/60 124/60 118/61 O2 Sat by Pulse 98 99 98 Oximetry 10/03/17 10/03/17 10/03/17 18:16 18:30 18:46 Temperature Pulse Rate 106 H 118 H 120 H Respiratory 31 H 32 H 36 H Rate Blood Pressure 124/60 124/60 124/60 O2 Sat by Pulse 100 98 99 Oximetry General appearance: Present: mild distress - EENT Eyes: PERRL, EOM intact ENT: hearing intact, clear oral mucosa Ears: bilateral: normal - Neck Neck: supple, normal ROM - Respiratory Respiratory: bilateral: diminished, rhonchi - Breasts Breasts: deferred - Cardiovascular Rhythm: regular Heart Sounds: Present: S1 & S2. Absent: gallop, rub Extremities: pulses intact, No edema, normal color, Full ROM - Gastrointestinal General gastrointestinal: Present: soft, non-tender, non-distended, normal bowel sounds Rectal Exam: deferred - Genitourinary Female genitourinary: deferred - Integumentary Integumentary: clear, warm, dry - Musculoskeletal Musculoskeletal: 1, strength equal bilaterally - Neurologic Neurologic: moves all extremities - Psychiatric Psychiatric: appropriate mood/affect - Labs CBC & Chem 7: 10/03/17 04:00 10/02/17 05:00 Labs: Abnormal lab results 10/02/17 10/03/17 10/03/17 Range/Units 23:50 04:00 06:14 WBC 16.2 H (4.5-11.0) K/mm3 RBC 2.76 L (3.65-5.03) M/mm3 Hgb 8.0 L (10.1-14.3) gm/dl Hct 24.9 L (30.3-42.9) % RDW 17.1 H (13.2-15.2) % Seg Neuts % (Manual) 71.0 H (40.0-70.0) % Lymphocytes % (Manual) 9.0 L (13.4-35.0) % Monocytes % (Manual) 17.0 H (0.0-7.3) % Seg Neutrophils # Man 11.5 H (1.8-7.7) K/mm3 Monocytes # (Manual) 2.8 H (0.0-0.8) K/mm3 POC Glucose 159 H 162 H (70-105) 10/03/17 10/03/17 10/03/17 Range/Units 10:05 12:03 17:10 WBC (4.5-11.0) K/mm3 RBC (3.65-5.03) M/mm3 Hgb (10.1-14.3) gm/dl Hct (30.3-42.9) % RDW (13.2-15.2) % Seg Neuts % (Manual) (40.0-70.0) % Lymphocytes % (Manual) (13.4-35.0) % Monocytes % (Manual) (0.0-7.3) % Seg Neutrophils # Man (1.8-7.7) K/mm3 Monocytes # (Manual) (0.0-0.8) K/mm3 POC Glucose 148 H 168 H 42 L (70-105)
[2017-10-03] MEDS ORDERED: TPN ADULT 1,800 ML IV SCH (20:00)
[2017-10-04] MEDS: NOVOLOG SUB-Q SCH ×5 (00:07→23:44)
[2017-10-04 04:56] LABS: Hematocrit 23.1 % (30.3-42.9); Hemoglobin 7.8 gm/dl (10.1-14.3); Mean Corpuscular HGB Conc 34 % (30-34); Mean Corpuscular Hemoglobin 30 pg (28-32); Mean Corpuscular Volume 90 fl (79-97); Platelet Count 276 K/mm3 (140-440); Red Blood Count 2.58 M/mm3 (3.65-5.03); Red Cell Distribution Width 17.2 % (13.2-15.2); White Blood Count 18.9 K/mm3 (4.5-11.0)
[2017-10-04 05:16] LABS: Calcium 8.3 mg/dL (8.4-10.2); Chloride 96.3 mmol/L (98-107); Magnesium 1.5 mg/dL (1.7-2.3); Potassium 3.8 mmol/L (3.6-5.0)
[2017-10-04 06:42] LABS: Basophils % (Manual) 0 % (0.0-1.8); Blastocytes % (Manual) 0 %; Eosinophils % (Manual) 0 % (0.0-4.3)
[2017-10-04 06:43] LABS: Anisocytosis 1+; Diff Status Complete; Hypochromasia 1+; Polychromasia Few
[2017-10-04] MEDS: PROAMATINE FEEDTUBE SCH ×4 (08:29→22:50)
--- NOTE | 2017-10-04 09:03 | Progress Note ---
Assessment and Plan 1. ESRD: Continue HD on MWF. Patient was last dialyzed 2 days ago and no HD today. Plan to do HD tomorrow after insertion of hemodialysis catheter. Monitor lytes. S/p switched from PD. 2. Anemia: S/p multiple units of PRBC. Patient continues to drop Hb level. Epogen on MWF. 3. Hypotension: Remain on Levophed. Continue Midodrine. 4. Volume overload: UF with hemodialysis. Isolated UF on TTS as needed / tolerated. 5. Acute respiratory failure: On the vent. 6. Sepsis/Fungemia: The dialysis catheter was removed yesterday to give a line holiday for 2 days. D/w regarding insertion of remporary hemodialysis catheter tomorrow. 7. Gastric perforation and SBO: S/p ex lap, repair of enterotomy. Colonic perforation: S/p ex lap, transverse colon resection, colostomy creation. Abdominal Wound leak: S/p ex lap, abdominal wash out and abdominal wall closure. Subjective Date of service: 10/04/17 Principal diagnosis: respiratory failure, sepsis, shock rectal bleeding Interval history: Patient was seen and examined at the bedside. Remain on the vent. Objective - Vital Signs Vital signs: Vital Signs - 12hr 10/03/17 10/03/17 10/03/17 21:16 21:30 21:46 Temperature Pulse Rate 119 H 118 H 107 H Pulse Rate [ Right] Respiratory 36 H 35 H 33 H Rate Blood Pressure 126/53 126/53 126/53 O2 Sat by Pulse 98 98 99 Oximetry O2 Sat by Pulse Oximetry [ Assessment] 10/03/17 10/03/17 10/03/17 22:00 22:16 22:30 Temperature Pulse Rate 111 H 120 H 114 H Pulse Rate [ Right] Respiratory 31 H 37 H 37 H Rate Blood Pressure 120/56 116/59 116/59 O2 Sat by Pulse 97 98 98 Oximetry O2 Sat by Pulse Oximetry [ Assessment] 10/03/17 10/03/17 10/03/17 22:46 23:00 23:16 Temperature Pulse Rate 112 H 113 H 115 H Pulse Rate [ Right] Respiratory 31 H 31 H 30 H Rate Blood Pressure 120/56 126/54 126/54 O2 Sat by Pulse 98 97 100 Oximetry O2 Sat by Pulse Oximetry [ Assessment] 10/03/17 10/03/17 10/03/17 23:30 23:42 23:46 Temperature Pulse Rate 113 H 114 H 117 H Pulse Rate [ Right] Respiratory 33 H 35 H 38 H Rate Blood Pressure 126/54 126/54 126/54 O2 Sat by Pulse 97 98 98 Oximetry O2 Sat by Pulse Oximetry [ Assessment] 10/03/17 10/03/17 10/04/17 23:50 23:54 00:00 Temperature 101.9 F H Pulse Rate 104 H 114 H 119 H Pulse Rate [ 108 H Right] Respiratory 26 H 25 H Rate Blood Pressure 126/54 126/54 138/63 O2 Sat by Pulse 98 98 96 Oximetry O2 Sat by Pulse Oximetry [ Assessment] 10/04/17 10/04/17 10/04/17 00:03 00:16 00:30 Temperature Pulse Rate 111 H 120 H Pulse Rate [ Right] Respiratory 23 24 Rate Blood Pressure 126/54 126/54 O2 Sat by Pulse 98 98 Oximetry O2 Sat by Pulse 99 Oximetry [ Assessment] 10/04/17 10/04/17 10/04/17 00:46 01:00 01:16 Temperature Pulse Rate 111 H 108 H 114 H Pulse Rate [ Right] Respiratory 21 24 24 Rate Blood Pressure 126/54 115/54 115/54 O2 Sat by Pulse 99 98 99 Oximetry O2 Sat by Pulse Oximetry [ Assessment] 10/04/17 10/04/17 10/04/17 01:30 01:46 02:00 Temperature Pulse Rate 114 H 110 H 110 H Pulse Rate [ Right] Respiratory 26 H 26 H 25 H Rate Blood Pressure 115/54 115/54 109/60 O2 Sat by Pulse 99 99 99 Oximetry O2 Sat by Pulse Oximetry [ Assessment] 10/04/17 10/04/17 10/04/17 02:16 02:30 02:46 Temperature Pulse Rate 114 H 111 H 107 H Pulse Rate [ Right] Respiratory 20 23 25 H Rate Blood Pressure 109/60 109/60 109/60 O2 Sat by Pulse 98 99 100 Oximetry O2 Sat by Pulse Oximetry [ Assessment] 10/04/17 10/04/17 10/04/17 03:00 03:16 03:30 Temperature Pulse Rate 109 H 107 H 99 H Pulse Rate [ Right] Respiratory 26 H 26 H 21 Rate Blood Pressure 116/56 116/56 116/56 O2 Sat by Pulse 98 100 100 Oximetry O2 Sat by Pulse Oximetry [ Assessment] 10/04/17 10/04/17 10/04/17 03:46 03:52 04:00 Temperature 100.5 F H Pulse Rate 92 H 108 H 107 H Pulse Rate [ Right] Respiratory 19 21 Rate Blood Pressure 116/56 116/56 114/51 O2 Sat by Pulse 100 10 L 100 Oximetry O2 Sat by Pulse Oximetry [ Assessment] 10/04/17 10/04/17 10/04/17 04:16 04:30 04:46 Temperature Pulse Rate 107 H 95 H 96 H Pulse Rate [ Right] Respiratory 25 H 20 21 Rate Blood Pressure 114/51 114/51 114/51 O2 Sat by Pulse 100 100 100 Oximetry O2 Sat by Pulse Oximetry [ Assessment] 10/04/17 10/04/17 10/04/17 05:00 05:16 05:30 Temperature Pulse Rate 107 H 109 H 110 H Pulse Rate [ Right] Respiratory 25 H 27 H 30 H Rate Blood Pressure 114/55 114/55 114/55 O2 Sat by Pulse 99 99 100 Oximetry O2 Sat by Pulse Oximetry [ Assessment] 10/04/17 10/04/17 10/04/17 05:46 06:00 06:16 Temperature Pulse Rate 93 H 106 H 98 H Pulse Rate [ Right] Respiratory 22 24 24 Rate Blood Pressure 114/55 117/47 117/47 O2 Sat by Pulse 100 99 99 Oximetry O2 Sat by Pulse Oximetry [ Assessment] 10/04/17 10/04/17 10/04/17 06:30 06:46 07:00 Temperature Pulse Rate 99 H 112 H 106 H Pulse Rate [ Right] Respiratory 23 30 H 35 H Rate Blood Pressure 117/47 117/47 115/53 O2 Sat by Pulse 99 99 98 Oximetry O2 Sat by Pulse Oximetry [ Assessment] 10/04/17 10/04/17 10/04/17 07:16 07:30 07:46 Temperature Pulse Rate 114 H 112 H 109 H Pulse Rate [ Right] Respiratory 36 H 42 H 36 H Rate Blood Pressure 115/53 115/53 115/53 O2 Sat by Pulse 98 99 98 Oximetry O2 Sat by Pulse Oximetry [ Assessment] 10/04/17 10/04/17 10/04/17 08:00 08:02 08:16 Temperature Pulse Rate 108 H 117 H 112 H Pulse Rate [ Right] Respiratory 36 H 39 H 40 H Rate Blood Pressure 109/49 109/49 109/49 O2 Sat by Pulse 98 98 98 Oximetry O2 Sat by Pulse Oximetry [ Assessment] 10/04/17 08:18 Temperature Pulse Rate Pulse Rate [ Right] Respiratory Rate Blood Pressure O2 Sat by Pulse Oximetry O2 Sat by Pulse 98 Oximetry [ Assessment] - General Appearance General appearance: well-developed, appears stated age, obese, other (on the vent, FiO2 25%) EENT: ATNC, PERRL Neck: other (trached) Respiratory: Present: Clear to Ascultation Cardiology: regular, tachycardia, S1S2, no murmurs Gastrointestinal: normoactive bowel sounds, other (ostomy noted) Integumentary: no rash, warm and dry Neurologic: other (opens eyes) Musculoskeletal: other (1+ edema of both LEs noted) - Lab 10/04/17 04:47 10/04/17 04:47 Most recent lab results ABG pH 7.323 pH Units (7.350-7.450) L 09/09/17 Unknown ABG pCO2 41.1 mm Hg 09/09/17 Unknown ABG pO2 94.1 mm Hg (80.0-90.0) H 09/09/17 Unknown ABG HCO3 20.9 mmol/L (20.0-26.0) 09/09/17 Unknown ABG O2 Saturation 97.2 % (95.0-99.0) 09/09/17 Unknown Calcium 8.3 mg/dL (8.4-10.2) L 10/04/17 04:47 Phosphorus 3.00 mg/dL (2.5-4.5) 10/04/17 04:47 Magnesium 1.50 mg/dL (1.7-2.3) L 10/04/17 04:47
--- NOTE | 2017-10-04 09:41 | Progress Note ---
Assessment and Plan 62 y/o female originally admitted with hypotension, now back to ICU secondary to worsening hypotension, concern for sepsis, with acute respiratory failure post-op from ex-lap for abdominal distention and possible ileus, now back from OR after worsening respiratory failure, requiring re-intubation and wash out of abdomen 1. Wean pressors for MAPs >60 2. HD per renal. Will need new vascath. Renal discussing with vascular 3. Daily PSV trials with hopes of doing 24 hour PSV trial. Rest on rate while on HD 4. Steroids have been discontinued, please attempt to not restart these as surgery feels it is impeding the healing of the abdominal wound 5. Started tube feeds 09/30 at 10, but already having residuals, will continue to monitor. 6. Once medical issues have concrete plan, should be ready for transfer to [facility] 7. Ultimately, overall prognosis here is extremely poor. I suggest that a family meeting be held to discuss realistic goals and what the future plan of care will be. With her still requiring pressors and now fungemic still needing TPN for nutrition, the likely canas of sepsis with shock developing is high and survival in this patient would be very very low. CCT 31 Subjective Date of service: 10/04/17 Principal diagnosis: respiratory failure, sepsis, shock rectal bleeding Interval history: Lines removed and left IJ placed yesterday. Still on vasopressors. Temperature last night at 101.9. Catheter tips sent for culture. No HD today. Objective Vital Signs - 12hr 10/03/17 10/03/17 10/03/17 21:46 22:00 22:16 Temperature Pulse Rate 107 H 111 H 120 H Pulse Rate [ Right] Respiratory 33 H 31 H 37 H Rate Blood Pressure 126/53 120/56 116/59 O2 Sat by Pulse 99 97 98 Oximetry O2 Sat by Pulse Oximetry [ Assessment] 10/03/17 10/03/17 10/03/17 22:30 22:46 23:00 Temperature Pulse Rate 114 H 112 H 113 H Pulse Rate [ Right] Respiratory 37 H 31 H 31 H Rate Blood Pressure 116/59 120/56 126/54 O2 Sat by Pulse 98 98 97 Oximetry O2 Sat by Pulse Oximetry [ Assessment] 10/03/17 10/03/17 10/03/17 23:16 23:30 23:42 Temperature Pulse Rate 115 H 113 H 114 H Pulse Rate [ Right] Respiratory 30 H 33 H 35 H Rate Blood Pressure 126/54 126/54 126/54 O2 Sat by Pulse 100 97 98 Oximetry O2 Sat by Pulse Oximetry [ Assessment] 10/03/17 10/03/17 10/03/17 23:46 23:50 23:54 Temperature Pulse Rate 117 H 104 H 114 H Pulse Rate [ Right] Respiratory 38 H 26 H Rate Blood Pressure 126/54 126/54 126/54 O2 Sat by Pulse 98 98 98 Oximetry O2 Sat by Pulse Oximetry [ Assessment] 10/04/17 10/04/17 10/04/17 00:00 00:03 00:16 Temperature 101.9 F H Pulse Rate 119 H 111 H Pulse Rate [ 108 H Right] Respiratory 25 H 23 Rate Blood Pressure 138/63 126/54 O2 Sat by Pulse 96 98 Oximetry O2 Sat by Pulse 99 Oximetry [ Assessment] 10/04/17 10/04/17 10/04/17 00:30 00:46 01:00 Temperature Pulse Rate 120 H 111 H 108 H Pulse Rate [ Right] Respiratory 24 21 24 Rate Blood Pressure 126/54 126/54 115/54 O2 Sat by Pulse 98 99 98 Oximetry O2 Sat by Pulse Oximetry [ Assessment] 10/04/17 10/04/17 10/04/17 01:16 01:30 01:46 Temperature Pulse Rate 114 H 114 H 110 H Pulse Rate [ Right] Respiratory 24 26 H 26 H Rate Blood Pressure 115/54 115/54 115/54 O2 Sat by Pulse 99 99 99 Oximetry O2 Sat by Pulse Oximetry [ Assessment] 10/04/17 10/04/17 10/04/17 02:00 02:16 02:30 Temperature Pulse Rate 110 H 114 H 111 H Pulse Rate [ Right] Respiratory 25 H 20 23 Rate Blood Pressure 109/60 109/60 109/60 O2 Sat by Pulse 99 98 99 Oximetry O2 Sat by Pulse Oximetry [ Assessment] 10/04/17 10/04/17 10/04/17 02:46 03:00 03:16 Temperature Pulse Rate 107 H 109 H 107 H Pulse Rate [ Right] Respiratory 25 H 26 H 26 H Rate Blood Pressure 109/60 116/56 116/56 O2 Sat by Pulse 100 98 100 Oximetry O2 Sat by Pulse Oximetry [ Assessment] 10/04/17 10/04/17 10/04/17 03:30 03:46 03:52 Temperature Pulse Rate 99 H 92 H 108 H Pulse Rate [ Right] Respiratory 21 19 Rate Blood Pressure 116/56 116/56 116/56 O2 Sat by Pulse 100 100 10 L Oximetry O2 Sat by Pulse Oximetry [ Assessment] 10/04/17 10/04/17 10/04/17 04:00 04:16 04:30 Temperature 100.5 F H Pulse Rate 107 H 107 H 95 H Pulse Rate [ Right] Respiratory 21 25 H 20 Rate Blood Pressure 114/51 114/51 114/51 O2 Sat by Pulse 100 100 100 Oximetry O2 Sat by Pulse Oximetry [ Assessment] 10/04/17 10/04/17 10/04/17 04:46 05:00 05:16 Temperature Pulse Rate 96 H 107 H 109 H Pulse Rate [ Right] Respiratory 21 25 H 27 H Rate Blood Pressure 114/51 114/55 114/55 O2 Sat by Pulse 100 99 99 Oximetry O2 Sat by Pulse Oximetry [ Assessment] 10/04/17 10/04/17 10/04/17 05:30 05:46 06:00 Temperature Pulse Rate 110 H 93 H 106 H Pulse Rate [ Right] Respiratory 30 H 22 24 Rate Blood Pressure 114/55 114/55 117/47 O2 Sat by Pulse 100 100 99 Oximetry O2 Sat by Pulse Oximetry [ Assessment] 10/04/17 10/04/17 10/04/17 06:16 06:30 06:46 Temperature Pulse Rate 98 H 99 H 112 H Pulse Rate [ Right] Respiratory 24 23 30 H Rate Blood Pressure 117/47 117/47 117/47 O2 Sat by Pulse 99 99 99 Oximetry O2 Sat by Pulse Oximetry [ Assessment] 10/04/17 10/04/17 10/04/17 07:00 07:16 07:30 Temperature Pulse Rate 106 H 114 H 112 H Pulse Rate [ Right] Respiratory 35 H 36 H 42 H Rate Blood Pressure 115/53 115/53 115/53 O2 Sat by Pulse 98 98 99 Oximetry O2 Sat by Pulse Oximetry [ Assessment] 10/04/17 10/04/17 10/04/17 07:46 08:00 08:02 Temperature Pulse Rate 109 H 108 H 117 H Pulse Rate [ Right] Respiratory 36 H 36 H 39 H Rate Blood Pressure 115/53 109/49 109/49 O2 Sat by Pulse 98 98 98 Oximetry O2 Sat by Pulse Oximetry [ Assessment] 10/04/17 10/04/17 08:16 08:18 Temperature Pulse Rate 112 H Pulse Rate [ Right] Respiratory 40 H Rate Blood Pressure 109/49 O2 Sat by Pulse 98 Oximetry O2 Sat by Pulse 98 Oximetry [ Assessment] Constitutional: no acute distress, lethargic Eyes: non-icteric ENT: oropharynx dry Neck: supple, other (trach in position, no bleeding) Effort: normal Ascultation: Bilateral: clear ( ), diminished breath sounds Cardiovascular: regular rate and rhythm (no mrg) Gastrointestinal: absent bowel sounds, non-tender, other (abdominal incision with dressing , obese. Drain in place, no bleeding; ostomy with brown stool) Integumentary: normal Extremities: no cyanosis, pink and warm, edema Neurologic: non-focal exam, pupils equal and round Psychiatric: mood appropriate, affect normal CBC and BMP: 10/04/17 04:47 10/04/17 04:47 ABG, PT/INR, D-dimer: ABG POC ABG pH 7.347 (7.35-7.45) L 09/13/17 11:36 ABG pH 7.323 pH Units (7.350-7.450) L 09/09/17 Unknown POC ABG pCO2 34.3 (35-45) L 09/13/17 11:36 ABG pCO2 41.1 mm Hg 09/09/17 Unknown POC ABG pO2 134 (80-105) H 09/13/17 11:36 ABG pO2 94.1 mm Hg (80.0-90.0) H 09/09/17 Unknown POC ABG HCO3 18.8 09/13/17 11:36 POC ABG Total CO2 20 09/13/17 11:36 POC ABG O2 Sat 99 09/13/17 11:36 ABG O2 Saturation 97.2 % (95.0-99.0) 09/09/17 Unknown PT/INR, D-dimer PT 14.9 Sec. (12.2-14.9) 09/21/17 07:00 INR 1.11 (0.87-1.13) 09/21/17 07:00 Abnormal lab findings: Abnormal Labs 08/08/17 08/08/17 08/09/17 21:23 21:31 11:19 WBC 15.7 H RBC 2.93 L Hgb 8.7 L Hct 26.8 L MCV MCH MCHC RDW 19.2 H Plt Count Lymph % (Auto) [place] % (Auto) [place] # Seg Neutrophils % Seg Neuts % (Manual) Lymphocytes % (Manual) Monocytes % (Manual) Nucleated RBC % Seg Neutrophils # Seg Neutrophils # Man Lymphocytes # (Manual) Monocytes # (Manual) Eosinophils # (Manual) Basophils # (Manual) PT INR POC ABG pH 7.490 H ABG pH POC ABG pCO2 POC ABG pO2 122 H ABG pO2 ABG O2 Saturation ABG Base Excess ABG Hemoglobin Oxyhemoglobin Sodium Potassium Chloride Carbon Dioxide BUN Creatinine Glucose POC Glucose Calcium Phosphorus Magnesium Iron TIBC Ferritin Total Bilirubin AST ALT Alkaline Phosphatase Total Creatine Kinase Troponin T 0.133 H* C-Reactive Protein Total Protein Albumin Triglycerides HDL Cholesterol 26 L Miscellaneous Test Crossmatch 08/09/17 08/10/17 08/10/17 13:25 04:45 04:45 WBC 15.5 H RBC 2.97 L Hgb 8.9 L Hct 27.0 L MCV MCH MCHC RDW 19.2 H Plt Count Lymph % (Auto) [place] % (Auto) [place] # Seg Neutrophils % Seg Neuts % (Manual) 73.0 H Lymphocytes % (Manual) 7.0 L Monocytes % (Manual) 14.0 H Nucleated RBC % Seg Neutrophils # Seg Neutrophils # Man 11.3 H Lymphocytes # (Manual) 1.1 L Monocytes # (Manual) 2.2 H Eosinophils # (Manual) Basophils # (Manual) 0.2 H PT INR POC ABG pH ABG pH POC ABG pCO2 POC ABG pO2 ABG pO2 ABG O2 Saturation ABG Base Excess ABG Hemoglobin Oxyhemoglobin Sodium Potassium 3.3 L Chloride 97.3 L Carbon Dioxide 21 L BUN 23 H Creatinine 6.5 H Glucose POC Glucose Calcium 7.3 L Phosphorus Magnesium Iron TIBC Ferritin Total Bilirubin AST ALT Alkaline Phosphatase 138 H Total Creatine Kinase Troponin T 0.132 H* C-Reactive Protein Total Protein 4.8 L Albumin 1.4 L Triglycerides HDL Cholesterol Miscellaneous Test Crossmatch 08/11/17 08/11/17 08/12/17 04:00 04:00 05:50 WBC 19.3 H RBC 3.10 L Hgb 9.5 L Hct 28.2 L MCV MCH MCHC RDW 19.2 H Plt Count 463 H Lymph % (Auto) 7.5 L [place] % (Auto) 14.6 H [place] # 2.8 H Seg Neutrophils % 77.0 H Seg Neuts % (Manual) Lymphocytes % (Manual) Monocytes % (Manual) Nucleated RBC % Seg Neutrophils # 14.8 H Seg Neutrophils # Man Lymphocytes # (Manual) Monocytes # (Manual) Eosinophils # (Manual) Basophils # (Manual) PT INR POC ABG pH ABG pH POC ABG pCO2 POC ABG pO2 ABG pO2 ABG O2 Saturation ABG Base Excess ABG Hemoglobin Oxyhemoglobin Sodium 136 L 136 L Potassium 3.3 L Chloride 96.3 L 96.6 L Carbon Dioxide BUN 26 H 26 H Creatinine 6.4 H 6.2 H Glucose 135 H 133 H POC Glucose Calcium 8.2 L Phosphorus Magnesium 1.30 L Iron TIBC Ferritin Total Bilirubin AST ALT Alkaline Phosphatase 139 H Total Creatine Kinase Troponin T C-Reactive Protein Total Protein 5.5 L Albumin 1.7 L Triglycerides HDL Cholesterol Miscellaneous Test Crossmatch 08/12/17 08/12/17 08/12/17 05:50 05:50 05:50 WBC 20.1 H RBC 3.06 L Hgb 9.3 L Hct 27.9 L MCV MCH MCHC RDW 18.4 H Plt Count 471 H Lymph % (Auto) [place] % (Auto) [place] # Seg Neutrophils % Seg Neuts % (Manual) 85.0 H Lymphocytes % (Manual) 8.0 L Monocytes % (Manual) Nucleated RBC % Seg Neutrophils # Seg Neutrophils # Man 17.1 H Lymphocytes # (Manual) Monocytes # (Manual) 1.0 H Eosinophils # (Manual) Basophils # (Manual) PT 15.2 H INR 1.14 H POC ABG pH ABG pH POC ABG pCO2 POC ABG pO2 ABG pO2 ABG O2 Saturation ABG Base Excess ABG Hemoglobin Oxyhemoglobin Sodium Potassium Chloride Carbon Dioxide BUN Creatinine Glucose POC Glucose Calcium Phosphorus Magnesium Iron TIBC Ferritin Total Bilirubin AST ALT Alkaline Phosphatase Total Creatine Kinase Troponin T C-Reactive Protein 28.90 H Total Protein Albumin Triglycerides HDL Cholesterol Miscellaneous Test Crossmatch 08/12/17 08/13/17 08/13/17 16:23 06:14 06:14 WBC 21.8 H RBC 3.11 L Hgb 9.4 L Hct 28.2 L MCV MCH MCHC RDW 18.2 H Plt Count 492 H Lymph % (Auto) [place] % (Auto) [place] # Seg Neutrophils % Seg Neuts % (Manual) 73.0 H Lymphocytes % (Manual) 2.0 L Monocytes % (Manual) 15 H Nucleated RBC % Seg Neutrophils # Seg Neutrophils # Man 15.9 H Lymphocytes # (Manual) 0.4 L Monocytes # (Manual) 2.4 H Eosinophils # (Manual) Basophils # (Manual) PT INR POC ABG pH ABG pH POC ABG pCO2 POC ABG pO2 ABG pO2 ABG O2 Saturation ABG Base Excess ABG Hemoglobin Oxyhemoglobin Sodium Potassium Chloride 96.2 L Carbon Dioxide BUN 28 H Creatinine 5.6 H Glucose 114 H POC Glucose Calcium Phosphorus Magnesium Iron TIBC Ferritin Total Bilirubin AST ALT Alkaline Phosphatase Total Creatine Kinase Troponin T C-Reactive Protein 26.10 H Total Protein Albumin Triglycerides HDL Cholesterol Miscellaneous Test Crossmatch 08/13/17 08/14/17 08/14/17 16:39 04:00 04:00 WBC 22.1 H RBC 3.25 L Hgb 9.9 L Hct 29.5 L MCV MCH MCHC RDW 17.9 H Plt Count 525 H Lymph % (Auto) [place] % (Auto) [place] # Seg Neutrophils % Seg Neuts % (Manual) 74.0 H Lymphocytes % (Manual) 8.0 L Monocytes % (Manual) 12.0 H Nucleated RBC % Seg Neutrophils # Seg Neutrophils # Man 16.4 H Lymphocytes # (Manual) Monocytes # (Manual) 2.7 H Eosinophils # (Manual) Basophils # (Manual) PT INR POC ABG pH ABG pH POC ABG pCO2 POC ABG pO2 ABG pO2 ABG O2 Saturation ABG Base Excess ABG Hemoglobin Oxyhemoglobin Sodium 134 L Potassium 3.3 L Chloride 93.3 L Carbon Dioxide BUN 27 H Creatinine 6.0 H Glucose 152 H POC Glucose 151 H Calcium Phosphorus Magnesium Iron TIBC Ferritin Total Bilirubin AST ALT Alkaline Phosphatase Total Creatine Kinase Troponin T C-Reactive Protein Total Protein Albumin Triglycerides HDL Cholesterol Miscellaneous Test Crossmatch 08/15/17 08/16/17 08/16/17 09:10 09:50 09:50 WBC 31.1 H RBC 3.21 L Hgb 9.6 L Hct 29.3 L MCV MCH MCHC RDW 18.1 H Plt Count 642 H Lymph % (Auto) [place] % (Auto) [place] # Seg Neutrophils % Seg Neuts % (Manual) 74.0 H Lymphocytes % (Manual) 4.0 L Monocytes % (Manual) 9.0 H Nucleated RBC % Seg Neutrophils # Seg Neutrophils # Man 23.0 H Lymphocytes # (Manual) Monocytes # (Manual) 2.8 H Eosinophils # (Manual) Basophils # (Manual) PT INR POC ABG pH ABG pH POC ABG pCO2 POC ABG pO2 ABG pO2 ABG O2 Saturation ABG Base Excess ABG Hemoglobin Oxyhemoglobin Sodium 136 L 136 L Potassium 3.5 L Chloride 97.6 L 94.9 L Carbon Dioxide BUN 27 H 28 H Creatinine 5.6 H 5.5 H Glucose 117 H 103 H POC Glucose Calcium Phosphorus Magnesium Iron TIBC Ferritin Total Bilirubin AST ALT Alkaline Phosphatase 137 H Total Creatine Kinase Troponin T C-Reactive Protein Total Protein 5.4 L Albumin 1.5 L Triglycerides HDL Cholesterol Miscellaneous Test Crossmatch 08/16/17 08/17/17 08/17/17 09:50 05:00 06:26 WBC RBC Hgb Hct MCV MCH MCHC RDW Plt Count Lymph % (Auto) [place] % (Auto) [place] # Seg Neutrophils % Seg Neuts % (Manual) Lymphocytes % (Manual) Monocytes % (Manual) Nucleated RBC % Seg Neutrophils # Seg Neutrophils # Man Lymphocytes # (Manual) Monocytes # (Manual) Eosinophils # (Manual) Basophils # (Manual) PT INR POC ABG pH ABG pH POC ABG pCO2 POC ABG pO2 ABG pO2 ABG O2 Saturation ABG Base Excess ABG Hemoglobin Oxyhemoglobin Sodium 134 L Potassium 3.0 L Chloride 97.8 L Carbon Dioxide BUN 30 H Creatinine 5.3 H Glucose 147 H POC Glucose 165 H Calcium 7.5 L Phosphorus Magnesium Iron TIBC Ferritin Total Bilirubin AST ALT Alkaline Phosphatase Total Creatine Kinase Troponin T C-Reactive Protein 32.30 H Total Protein Albumin Triglycerides HDL Cholesterol Miscellaneous Test Crossmatch 08/17/17 08/17/17 08/17/17 10:56 11:20 11:20 WBC 39.1 H RBC 3.10 L Hgb 9.2 L Hct 28.6 L MCV MCH MCHC RDW 18.3 H Plt Count 580 H Lymph % (Auto) [place] % (Auto) [place] # Seg Neutrophils % Seg Neuts % (Manual) 89.5 H Lymphocytes % (Manual) 3.5 L Monocytes % (Manual) Nucleated RBC % Seg Neutrophils # Seg Neutrophils # Man 35.0 H Lymphocytes # (Manual) Monocytes # (Manual) 2.5 H Eosinophils # (Manual) Basophils # (Manual) 0.2 H PT INR POC ABG pH 7.464 H ABG pH POC ABG pCO2 34.1 L POC ABG pO2 75 L ABG pO2 ABG O2 Saturation ABG Base Excess ABG Hemoglobin Oxyhemoglobin Sodium Potassium Chloride Carbon Dioxide BUN Creatinine Glucose POC Glucose Calcium Phosphorus Magnesium Iron TIBC Ferritin Total Bilirubin AST ALT Alkaline Phosphatase Total Creatine Kinase Troponin T C-Reactive Protein Total Protein Albumin Triglycerides HDL Cholesterol Miscellaneous Test Flexitest 1 H Crossmatch 08/17/17 08/17/17 08/17/17 11:20 16:57 20:20 WBC 34.4 H RBC 2.81 L Hgb 8.4 L Hct 26.0 L MCV MCH MCHC RDW 17.8 H Plt Count 455 H Lymph % (Auto) [place] % (Auto) [place] # Seg Neutrophils % Seg Neuts % (Manual) Lymphocytes % (Manual) 3.5 L Monocytes % (Manual) Nucleated RBC % 5.0 H Seg Neutrophils # Seg Neutrophils # Man 16.5 H Lymphocytes # (Manual) Monocytes # (Manual) 1.0 H Eosinophils # (Manual) Basophils # (Manual) PT 16.0 H INR 1.29 H POC ABG pH ABG pH POC ABG pCO2 POC ABG pO2 ABG pO2 ABG O2 Saturation ABG Base Excess ABG Hemoglobin Oxyhemoglobin Sodium 135 L Potassium 2.9 L* Chloride Carbon Dioxide 20 L BUN 32 H Creatinine 5.4 H Glucose 129 H POC Glucose Calcium 7.5 L Phosphorus Magnesium 1.50 L Iron TIBC Ferritin Total Bilirubin AST 85 H ALT Alkaline Phosphatase Total Creatine Kinase Troponin T C-Reactive Protein Total Protein 4.0 L D Albumin 1.6 L Triglycerides HDL Cholesterol Miscellaneous Test Crossmatch 08/17/17 08/17/17 08/18/17 20:54 23:47 04:26 WBC RBC Hgb Hct MCV MCH MCHC RDW Plt Count Lymph % (Auto) [place] % (Auto) [place] # Seg Neutrophils % Seg Neuts % (Manual) Lymphocytes % (Manual) Monocytes % (Manual) Nucleated RBC % Seg Neutrophils # Seg Neutrophils # Man Lymphocytes # (Manual) Monocytes # (Manual) Eosinophils # (Manual) Basophils # (Manual) PT INR POC ABG pH 7.557 H ABG pH POC ABG pCO2 23.1 L 29.0 L POC ABG pO2 187 H 148 H ABG pO2 ABG O2 Saturation ABG Base Excess ABG Hemoglobin Oxyhemoglobin Sodium Potassium Chloride Carbon Dioxide BUN Creatinine Glucose POC Glucose 188 H Calcium Phosphorus Magnesium Iron TIBC Ferritin Total Bilirubin AST ALT Alkaline Phosphatase Total Creatine Kinase Troponin T C-Reactive Protein Total Protein Albumin Triglycerides HDL Cholesterol Miscellaneous Test Crossmatch 08/18/17 08/18/17 08/18/17 05:51 11:44 17:07 WBC RBC Hgb Hct MCV MCH MCHC RDW Plt Count Lymph % (Auto) [place] % (Auto) [place] # Seg Neutrophils % Seg Neuts % (Manual) Lymphocytes % (Manual) Monocytes % (Manual) Nucleated RBC % Seg Neutrophils # Seg Neutrophils # Man Lymphocytes # (Manual) Monocytes # (Manual) Eosinophils # (Manual) Basophils # (Manual) PT INR POC ABG pH ABG pH POC ABG pCO2 POC ABG pO2 ABG pO2 ABG O2 Saturation ABG Base Excess ABG Hemoglobin Oxyhemoglobin Sodium Potassium Chloride Carbon Dioxide BUN Creatinine Glucose POC Glucose 202 H 195 H 182 H Calcium Phosphorus Magnesium Iron TIBC Ferritin Total Bilirubin AST ALT Alkaline Phosphatase Total Creatine Kinase Troponin T C-Reactive Protein Total Protein Albumin Triglycerides HDL Cholesterol Miscellaneous Test Crossmatch 08/18/17 08/18/17 08/18/17 23:45 Unknown Unknown WBC 39.0 H RBC 2.84 L Hgb 8.4 L Hct 26.5 L MCV MCH MCHC RDW 18.0 H Plt Count 476 H Lymph % (Auto) [place] % (Auto) [place] # Seg Neutrophils % Seg Neuts % (Manual) Lymphocytes % (Manual) 7.0 L Monocytes % (Manual) 10.0 H Nucleated RBC % 3.0 H Seg Neutrophils # Seg Neutrophils # Man 15.6 H Lymphocytes # (Manual) Monocytes # (Manual) 3.9 H Eosinophils # (Manual) Basophils # (Manual) PT INR POC ABG pH ABG pH POC ABG pCO2 POC ABG pO2 ABG pO2 ABG O2 Saturation ABG Base Excess ABG Hemoglobin Oxyhemoglobin Sodium Potassium Chloride Carbon Dioxide 19 L BUN 34 H Creatinine 5.6 H Glucose 201 H POC Glucose 163 H Calcium 7.8 L Phosphorus 1.90 L D Magnesium 1.60 L Iron TIBC Ferritin Total Bilirubin AST ALT Alkaline Phosphatase Total Creatine Kinase Troponin T C-Reactive Protein Total Protein Albumin Triglycerides HDL Cholesterol Miscellaneous Test Crossmatch 08/19/17 08/19/17 08/19/17 04:18 05:00 05:00 WBC 40.0 H RBC 2.46 L Hgb 7.3 L Hct 22.6 L MCV MCH MCHC RDW 18.1 H Plt Count Lymph % (Auto) [place] % (Auto) [place] # Seg Neutrophils % Seg Neuts % (Manual) Lymphocytes % (Manual) 8.0 L Monocytes % (Manual) Nucleated RBC % 2.0 H Seg Neutrophils # Seg Neutrophils # Man 16.4 H Lymphocytes # (Manual) Monocytes # (Manual) 1.2 H Eosinophils # (Manual) 1.2 H Basophils # (Manual) PT INR POC ABG pH 7.463 H ABG pH POC ABG pCO2 29.7 L POC ABG pO2 134 H ABG pO2 ABG O2 Saturation ABG Base Excess ABG Hemoglobin Oxyhemoglobin Sodium Potassium 5.1 H D Chloride Carbon Dioxide 20 L BUN 40 H Creatinine 5.3 H Glucose 128 H POC Glucose Calcium 7.8 L Phosphorus 1.90 L Magnesium Iron TIBC Ferritin Total Bilirubin AST ALT Alkaline Phosphatase Total Creatine Kinase Troponin T C-Reactive Protein Total Protein Albumin Triglycerides HDL Cholesterol Miscellaneous Test Crossmatch 08/19/17 08/19/17 08/19/17 05:19 07:37 09:52 WBC 45.0 H* RBC 2.50 L Hgb 7.5 L Hct 24.5 L MCV 98 H MCH MCHC RDW 18.4 H Plt Count Lymph % (Auto) [place] % (Auto) [place] # Seg Neutrophils % Seg Neuts % (Manual) 81.5 H Lymphocytes % (Manual) 4.0 L Monocytes % (Manual) Nucleated RBC % 1.0 H Seg Neutrophils # Seg Neutrophils # Man 36.7 H Lymphocytes # (Manual) Monocytes # (Manual) Eosinophils # (Manual) Basophils # (Manual) PT INR POC ABG pH ABG pH POC ABG pCO2 POC ABG pO2 ABG pO2 ABG O2 Saturation ABG Base Excess ABG Hemoglobin Oxyhemoglobin Sodium Potassium Chloride Carbon Dioxide BUN Creatinine Glucose POC Glucose 142 H Calcium Phosphorus Magnesium Iron TIBC Ferritin Total Bilirubin AST ALT Alkaline Phosphatase Total Creatine Kinase Troponin T C-Reactive Protein 34.20 H Total Protein Albumin Triglycerides HDL Cholesterol Miscellaneous Test Crossmatch 08/19/17 08/19/17 08/20/17 11:16 18:12 00:35 WBC RBC Hgb Hct MCV MCH MCHC RDW Plt Count Lymph % (Auto) [place] % (Auto) [place] # Seg Neutrophils % Seg Neuts % (Manual) Lymphocytes % (Manual) Monocytes % (Manual) Nucleated RBC % Seg Neutrophils # Seg Neutrophils # Man Lymphocytes # (Manual) Monocytes # (Manual) Eosinophils # (Manual) Basophils # (Manual) PT INR POC ABG pH ABG pH POC ABG pCO2 POC ABG pO2 ABG pO2 ABG O2 Saturation ABG Base Excess ABG Hemoglobin Oxyhemoglobin Sodium Potassium Chloride Carbon Dioxide BUN Creatinine Glucose POC Glucose 143 H 137 H 164 H Calcium Phosphorus Magnesium Iron TIBC Ferritin Total Bilirubin AST ALT Alkaline Phosphatase Total Creatine Kinase Troponin T C-Reactive Protein Total Protein Albumin Triglycerides HDL Cholesterol Miscellaneous Test Crossmatch 08/20/17 08/20/17 08/20/17 03:20 03:20 04:00 WBC 48.0 H* RBC 2.55 L Hgb 7.6 L Hct 23.4 L MCV MCH MCHC RDW 18.4 H Plt Count Lymph % (Auto) [place] % (Auto) [place] # Seg Neutrophils % Seg Neuts % (Manual) 90.0 H Lymphocytes % (Manual) 3.0 L Monocytes % (Manual) Nucleated RBC % Seg Neutrophils # Seg Neutrophils # Man 43.2 H Lymphocytes # (Manual) Monocytes # (Manual) 1.4 H Eosinophils # (Manual) 0.5 H Basophils # (Manual) PT INR POC ABG pH 7.499 H ABG pH POC ABG pCO2 29.1 L POC ABG pO2 ABG pO2 ABG O2 Saturation ABG Base Excess ABG Hemoglobin Oxyhemoglobin Sodium 135 L Potassium Chloride Carbon Dioxide BUN 28 H Creatinine 4.0 H Glucose 140 H POC Glucose Calcium 8.0 L Phosphorus 1.70 L Magnesium 1.60 L Iron TIBC Ferritin Total Bilirubin AST ALT Alkaline Phosphatase Total Creatine Kinase Troponin T C-Reactive Protein Total Protein Albumin Triglycerides HDL Cholesterol Miscellaneous Test Crossmatch 08/20/17 08/20/17 08/20/17 05:02 12:05 13:12 WBC RBC Hgb Hct MCV MCH MCHC RDW Plt Count Lymph % (Auto) [place] % (Auto) [place] # Seg Neutrophils % Seg Neuts % (Manual) Lymphocytes % (Manual) Monocytes % (Manual) Nucleated RBC % Seg Neutrophils # Seg Neutrophils # Man Lymphocytes # (Manual) Monocytes # (Manual) Eosinophils # (Manual) Basophils # (Manual) PT INR POC ABG pH 7.537 H ABG pH POC ABG pCO2 27.9 L POC ABG pO2 79 L ABG pO2 ABG O2 Saturation ABG Base Excess ABG Hemoglobin Oxyhemoglobin Sodium Potassium Chloride Carbon Dioxide BUN Creatinine Glucose POC Glucose 158 H 203 H Calcium Phosphorus Magnesium Iron TIBC Ferritin Total Bilirubin AST ALT Alkaline Phosphatase Total Creatine Kinase Troponin T C-Reactive Protein Total Protein Albumin Triglycerides HDL Cholesterol Miscellaneous Test Crossmatch 08/20/17 08/21/17 08/21/17 17:13 00:47 03:14 WBC RBC Hgb Hct MCV MCH MCHC RDW Plt Count Lymph % (Auto) [place] % (Auto) [place] # Seg Neutrophils % Seg Neuts % (Manual) Lymphocytes % (Manual) Monocytes % (Manual) Nucleated RBC % Seg Neutrophils # Seg Neutrophils # Man Lymphocytes # (Manual) Monocytes # (Manual) Eosinophils # (Manual) Basophils # (Manual) PT INR POC ABG pH 7.481 H ABG pH POC ABG pCO2 29.6 L POC ABG pO2 ABG pO2 ABG O2 Saturation ABG Base Excess ABG Hemoglobin Oxyhemoglobin Sodium Potassium Chloride Carbon Dioxide BUN Creatinine Glucose POC Glucose 188 H 109 H Calcium Phosphorus Magnesium Iron TIBC Ferritin Total Bilirubin AST ALT Alkaline Phosphatase Total Creatine Kinase Troponin T C-Reactive Protein Total Protein Albumin Triglycerides HDL Cholesterol Miscellaneous Test Crossmatch 08/21/17 08/21/17 08/21/17 05:05 06:50 06:50 WBC 44.7 H* RBC 2.41 L Hgb 7.1 L Hct 22.1 L MCV MCH MCHC RDW 18.3 H Plt Count Lymph % (Auto) [place] % (Auto) [place] # Seg Neutrophils % Seg Neuts % (Manual) 89.0 H Lymphocytes % (Manual) 0 L Monocytes % (Manual) Nucleated RBC % 1.0 H Seg Neutrophils # Seg Neutrophils # Man 39.8 H Lymphocytes # (Manual) 0.0 L Monocytes # (Manual) 1.3 H Eosinophils # (Manual) Basophils # (Manual) PT INR POC ABG pH ABG pH POC ABG pCO2 POC ABG pO2 ABG pO2 ABG O2 Saturation ABG Base Excess ABG Hemoglobin Oxyhemoglobin Sodium 135 L Potassium Chloride Carbon Dioxide BUN 39 H Creatinine 4.4 H Glucose 147 H POC Glucose 166 H Calcium 8.1 L Phosphorus Magnesium Iron TIBC Ferritin Total Bilirubin AST ALT < 5 L Alkaline Phosphatase 164 H Total Creatine Kinase Troponin T C-Reactive Protein Total Protein 4.7 L Albumin 1.4 L Triglycerides HDL Cholesterol Miscellaneous Test Crossmatch 08/21/17 08/21/17 08/21/17 08:00 12:21 17:02 WBC RBC Hgb Hct MCV MCH MCHC RDW Plt Count Lymph % (Auto) [place] % (Auto) [place] # Seg Neutrophils % Seg Neuts % (Manual) Lymphocytes % (Manual) Monocytes % (Manual) Nucleated RBC % Seg Neutrophils # Seg Neutrophils # Man Lymphocytes # (Manual) Monocytes # (Manual) Eosinophils # (Manual) Basophils # (Manual) PT INR POC ABG pH ABG pH POC ABG pCO2 POC ABG pO2 ABG pO2 ABG O2 Saturation ABG Base Excess ABG Hemoglobin Oxyhemoglobin Sodium Potassium Chloride Carbon Dioxide BUN Creatinine Glucose POC Glucose 147 H 135 H Calcium Phosphorus Magnesium Iron TIBC Ferritin Total Bilirubin AST ALT Alkaline Phosphatase Total Creatine Kinase Troponin T C-Reactive Protein Total Protein Albumin Triglycerides HDL Cholesterol Miscellaneous Test Crossmatch See Detail 08/21/17 08/22/17 08/22/17 23:38 03:40 03:40 WBC 42.5 H* RBC 2.88 L Hgb 8.5 L Hct 26.3 L MCV MCH MCHC RDW 17.9 H Plt Count Lymph % (Auto) [place] % (Auto) [place] # Seg Neutrophils % Seg Neuts % (Manual) Lymphocytes % (Manual) 5.0 L Monocytes % (Manual) Nucleated RBC % Seg Neutrophils # Seg Neutrophils # Man 19.6 H Lymphocytes # (Manual) Monocytes # (Manual) 2.6 H Eosinophils # (Manual) Basophils # (Manual) PT INR POC ABG pH ABG pH POC ABG pCO2 POC ABG pO2 ABG pO2 ABG O2 Saturation ABG Base Excess ABG Hemoglobin Oxyhemoglobin Sodium Potassium 3.3 L D Chloride Carbon Dioxide BUN 27 H Creatinine 2.9 H Glucose 144 H POC Glucose 251 H Calcium 8.0 L Phosphorus 2.40 L Magnesium Iron TIBC Ferritin Total Bilirubin AST ALT Alkaline Phosphatase Total Creatine Kinase Troponin T C-Reactive Protein Total Protein Albumin Triglycerides HDL Cholesterol Miscellaneous Test Crossmatch 08/22/17 08/22/17 08/22/17 06:37 08:50 11:25 WBC RBC Hgb Hct MCV MCH MCHC RDW Plt Count Lymph % (Auto) [place] % (Auto) [place] # Seg Neutrophils % Seg Neuts % (Manual) Lymphocytes % (Manual) Monocytes % (Manual) Nucleated RBC % Seg Neutrophils # Seg Neutrophils # Man Lymphocytes # (Manual) Monocytes # (Manual) Eosinophils # (Manual) Basophils # (Manual) PT INR POC ABG pH ABG pH POC ABG pCO2 POC ABG pO2 ABG pO2 ABG O2 Saturation ABG Base Excess ABG Hemoglobin Oxyhemoglobin Sodium Potassium Chloride Carbon Dioxide BUN Creatinine Glucose POC Glucose 152 H 175 H Calcium Phosphorus Magnesium Iron TIBC Ferritin Total Bilirubin AST ALT Alkaline Phosphatase Total Creatine Kinase Troponin T C-Reactive Protein Total Protein Albumin Triglycerides HDL Cholesterol Miscellaneous Test Flexitest 1 H Crossmatch 08/22/17 08/22/17 08/22/17 16:25 17:56 23:03 WBC RBC Hgb Hct MCV MCH MCHC RDW Plt Count Lymph % (Auto) [place] % (Auto) [place] # Seg Neutrophils % Seg Neuts % (Manual) Lymphocytes % (Manual) Monocytes % (Manual) Nucleated RBC % Seg Neutrophils # Seg Neutrophils # Man Lymphocytes # (Manual) Monocytes # (Manual) Eosinophils # (Manual) Basophils # (Manual) PT INR POC ABG pH ABG pH POC ABG pCO2 POC ABG pO2 ABG pO2 ABG O2 Saturation ABG Base Excess ABG Hemoglobin Oxyhemoglobin Sodium Potassium Chloride Carbon Dioxide BUN Creatinine Glucose POC Glucose 232 H 192 H Calcium Phosphorus Magnesium Iron TIBC Ferritin Total Bilirubin AST ALT Alkaline Phosphatase Total Creatine Kinase Troponin T C-Reactive Protein 30.70 H Total Protein Albumin Triglycerides HDL Cholesterol Miscellaneous Test Crossmatch 08/23/17 08/23/17 08/23/17 05:36 08:50 12:14 WBC RBC Hgb Hct MCV MCH MCHC RDW Plt Count Lymph % (Auto) [place] % (Auto) [place] # Seg Neutrophils % Seg Neuts % (Manual) Lymphocytes % (Manual) Monocytes % (Manual) Nucleated RBC % Seg Neutrophils # Seg Neutrophils # Man Lymphocytes # (Manual) Monocytes # (Manual) Eosinophils # (Manual) Basophils # (Manual) PT INR POC ABG pH ABG pH POC ABG pCO2 POC ABG pO2 ABG pO2 ABG O2 Saturation ABG Base Excess ABG Hemoglobin Oxyhemoglobin Sodium Potassium Chloride 107.1 H Carbon Dioxide BUN 49 H Creatinine 3.3 H Glucose 172 H POC Glucose 206 H 238 H Calcium Phosphorus Magnesium 2.40 H Iron TIBC Ferritin Total Bilirubin AST ALT Alkaline Phosphatase Total Creatine Kinase Troponin T C-Reactive Protein Total Protein Albumin Triglycerides HDL Cholesterol Miscellaneous Test Crossmatch 08/23/17 08/23/17 08/24/17 17:21 23:13 04:00 WBC 34.2 H RBC 2.86 L Hgb 8.4 L Hct 25.9 L MCV MCH MCHC RDW 17.9 H Plt Count Lymph % (Auto) [place] % (Auto) [place] # Seg Neutrophils % Seg Neuts % (Manual) 85.0 H Lymphocytes % (Manual) 0.5 L Monocytes % (Manual) Nucleated RBC % 1.0 H Seg Neutrophils # Seg Neutrophils # Man 29.1 H Lymphocytes # (Manual) 0.2 L Monocytes # (Manual) 2.4 H Eosinophils # (Manual) Basophils # (Manual) PT INR POC ABG pH ABG pH POC ABG pCO2 POC ABG pO2 ABG pO2 ABG O2 Saturation ABG Base Excess ABG Hemoglobin Oxyhemoglobin Sodium Potassium Chloride Carbon Dioxide BUN Creatinine Glucose POC Glucose 226 H 183 H Calcium Phosphorus Magnesium Iron TIBC Ferritin Total Bilirubin AST ALT Alkaline Phosphatase Total Creatine Kinase Troponin T C-Reactive Protein Total Protein Albumin Triglycerides HDL Cholesterol Miscellaneous Test Crossmatch 08/24/17 08/24/17 08/24/17 05:06 09:30 12:04 WBC RBC Hgb Hct MCV MCH MCHC RDW Plt Count Lymph % (Auto) [place] % (Auto) [place] # Seg Neutrophils % Seg Neuts % (Manual) Lymphocytes % (Manual) Monocytes % (Manual) Nucleated RBC % Seg Neutrophils # Seg Neutrophils # Man Lymphocytes # (Manual) Monocytes # (Manual) Eosinophils # (Manual) Basophils # (Manual) PT INR POC ABG pH ABG pH POC ABG pCO2 POC ABG pO2 ABG pO2 ABG O2 Saturation ABG Base Excess ABG Hemoglobin Oxyhemoglobin Sodium Potassium Chloride Carbon Dioxide BUN 46 H Creatinine 2.5 H Glucose 176 H POC Glucose 201 H 181 H Calcium Phosphorus Magnesium Iron TIBC Ferritin Total Bilirubin AST ALT Alkaline Phosphatase Total Creatine Kinase Troponin T C-Reactive Protein Total Protein Albumin Triglycerides HDL Cholesterol Miscellaneous Test Crossmatch 08/24/17 08/24/17 08/25/17 18:04 23:05 05:05 WBC RBC Hgb Hct MCV MCH MCHC RDW Plt Count Lymph % (Auto) [place] % (Auto) [place] # Seg Neutrophils % Seg Neuts % (Manual) Lymphocytes % (Manual) Monocytes % (Manual) Nucleated RBC % Seg Neutrophils # Seg Neutrophils # Man Lymphocytes # (Manual) Monocytes # (Manual) Eosinophils # (Manual) Basophils # (Manual) PT INR POC ABG pH ABG pH POC ABG pCO2 POC ABG pO2 ABG pO2 ABG O2 Saturation ABG Base Excess ABG Hemoglobin Oxyhemoglobin Sodium Potassium Chloride Carbon Dioxide BUN Creatinine Glucose POC Glucose 189 H 175 H 190 H Calcium Phosphorus Magnesium Iron TIBC Ferritin Total Bilirubin AST ALT Alkaline Phosphatase Total Creatine Kinase Troponin T C-Reactive Protein Total Protein Albumin Triglycerides HDL Cholesterol Miscellaneous Test Crossmatch 08/25/17 08/25/17 08/26/17 07:02 11:53 05:30 WBC 33.5 H RBC 2.47 L Hgb 7.3 L Hct 23.0 L MCV MCH MCHC RDW 21.3 H Plt Count Lymph % (Auto) [place] % (Auto) [place] # Seg Neutrophils % Seg Neuts % (Manual) 92.0 H Lymphocytes % (Manual) 1.0 L Monocytes % (Manual) Nucleated RBC % Seg Neutrophils # Seg Neutrophils # Man 30.8 H Lymphocytes # (Manual) 0.3 L Monocytes # (Manual) Eosinophils # (Manual) Basophils # (Manual) PT INR POC ABG pH ABG pH POC ABG pCO2 POC ABG pO2 ABG pO2 ABG O2 Saturation ABG Base Excess ABG Hemoglobin Oxyhemoglobin Sodium Potassium Chloride Carbon Dioxide BUN 32 H Creatinine 5.0 H D Glucose 117 H POC Glucose 191 H Calcium 8.0 L Phosphorus Magnesium Iron TIBC Ferritin Total Bilirubin AST ALT Alkaline Phosphatase Total Creatine Kinase Troponin T C-Reactive Protein Total Protein Albumin Triglycerides HDL Cholesterol Miscellaneous Test Crossmatch 08/26/17 08/26/17 08/26/17 05:30 06:44 13:26 WBC RBC Hgb Hct MCV MCH MCHC RDW Plt Count Lymph % (Auto) [place] % (Auto) [place] # Seg Neutrophils % Seg Neuts % (Manual) Lymphocytes % (Manual) Monocytes % (Manual) Nucleated RBC % Seg Neutrophils # Seg Neutrophils # Man Lymphocytes # (Manual) Monocytes # (Manual) Eosinophils # (Manual) Basophils # (Manual) PT INR POC ABG pH ABG pH POC ABG pCO2 POC ABG pO2 ABG pO2 ABG O2 Saturation ABG Base Excess ABG Hemoglobin Oxyhemoglobin Sodium Potassium 5.2 H Chloride Carbon Dioxide BUN 80 H Creatinine 3.4 H Glucose 193 H POC Glucose 232 H 207 H Calcium 8.3 L Phosphorus 6.80 H D Magnesium 2.60 H Iron TIBC Ferritin Total Bilirubin AST 135 H ALT Alkaline Phosphatase 211 H Total Creatine Kinase Troponin T C-Reactive Protein Total Protein 4.8 L Albumin 2.0 L Triglycerides HDL Cholesterol Miscellaneous Test Crossmatch 08/27/17 08/27/17 08/27/17 01:08 06:20 06:20 WBC 35.0 H RBC 2.75 L Hgb 8.4 L Hct 25.1 L MCV MCH MCHC RDW 21.8 H Plt Count Lymph % (Auto) [place] % (Auto) [place] # Seg Neutrophils % Seg Neuts % (Manual) Lymphocytes % (Manual) 4.5 L Monocytes % (Manual) Nucleated RBC % Seg Neutrophils # Seg Neutrophils # Man 31.9 H Lymphocytes # (Manual) Monocytes # (Manual) 1.2 H Eosinophils # (Manual) Basophils # (Manual) PT INR POC ABG pH ABG pH POC ABG pCO2 POC ABG pO2 ABG pO2 ABG O2 Saturation ABG Base Excess ABG Hemoglobin Oxyhemoglobin Sodium Potassium Chloride Carbon Dioxide BUN 61 H Creatinine 2.6 H Glucose 184 H POC Glucose 146 H Calcium Phosphorus 4.90 H D Magnesium Iron TIBC Ferritin Total Bilirubin AST ALT Alkaline Phosphatase Total Creatine Kinase Troponin T C-Reactive Protein Total Protein Albumin Triglycerides HDL Cholesterol Miscellaneous Test Crossmatch 08/27/17 08/27/17 08/27/17 07:01 09:17 12:52 WBC RBC Hgb Hct MCV MCH MCHC RDW Plt Count Lymph % (Auto) [place] % (Auto) [place] # Seg Neutrophils % Seg Neuts % (Manual) Lymphocytes % (Manual) Monocytes % (Manual) Nucleated RBC % Seg Neutrophils # Seg Neutrophils # Man Lymphocytes # (Manual) Monocytes # (Manual) Eosinophils # (Manual) Basophils # (Manual) PT INR POC ABG pH ABG pH POC ABG pCO2 POC ABG pO2 ABG pO2 ABG O2 Saturation ABG Base Excess ABG Hemoglobin Oxyhemoglobin Sodium Potassium Chloride Carbon Dioxide BUN Creatinine Glucose POC Glucose 165 H 198 H 218 H Calcium Phosphorus Magnesium Iron TIBC Ferritin Total Bilirubin AST ALT Alkaline Phosphatase Total Creatine Kinase Troponin T C-Reactive Protein Total Protein Albumin Triglycerides HDL Cholesterol Miscellaneous Test Crossmatch 08/27/17 08/28/17 08/28/17 17:27 02:13 06:46 WBC RBC Hgb Hct MCV MCH MCHC RDW Plt Count Lymph % (Auto) [place] % (Auto) [place] # Seg Neutrophils % Seg Neuts % (Manual) Lymphocytes % (Manual) Monocytes % (Manual) Nucleated RBC % Seg Neutrophils # Seg Neutrophils # Man Lymphocytes # (Manual) Monocytes # (Manual) Eosinophils # (Manual) Basophils # (Manual) PT INR POC ABG pH ABG pH POC ABG pCO2 POC ABG pO2 ABG pO2 ABG O2 Saturation ABG Base Excess ABG Hemoglobin Oxyhemoglobin Sodium Potassium Chloride Carbon Dioxide BUN Creatinine Glucose POC Glucose 151 H 155 H 230 H Calcium Phosphorus Magnesium Iron TIBC Ferritin Total Bilirubin AST ALT Alkaline Phosphatase Total Creatine Kinase Troponin T C-Reactive Protein Total Protein Albumin Triglycerides HDL Cholesterol Miscellaneous Test Crossmatch 08/28/17 08/28/17 08/28/17 06:53 06:53 08:19 WBC 31.1 H RBC 2.26 L Hgb 6.8 L Hct 20.9 L MCV MCH MCHC RDW 21.7 H Plt Count Lymph % (Auto) [place] % (Auto) [place] # Seg Neutrophils % Seg Neuts % (Manual) 83.0 H Lymphocytes % (Manual) 4.0 L Monocytes % (Manual) Nucleated RBC % Seg Neutrophils # Seg Neutrophils # Man 25.8 H Lymphocytes # (Manual) Monocytes # (Manual) Eosinophils # (Manual) Basophils # (Manual) PT INR POC ABG pH ABG pH POC ABG pCO2 POC ABG pO2 ABG pO2 ABG O2 Saturation ABG Base Excess ABG Hemoglobin Oxyhemoglobin Sodium Potassium Chloride Carbon Dioxide BUN 81 H Creatinine 3.4 H Glucose 218 H POC Glucose 239 H Calcium Phosphorus 4.90 H Magnesium Iron TIBC Ferritin Total Bilirubin AST ALT Alkaline Phosphatase Total Creatine Kinase Troponin T C-Reactive Protein Total Protein Albumin Triglycerides HDL Cholesterol Miscellaneous Test Crossmatch 08/28/17 08/28/17 08/28/17 11:56 13:05 13:29 WBC RBC Hgb Hct MCV MCH MCHC RDW Plt Count Lymph % (Auto) [place] % (Auto) [place] # Seg Neutrophils % Seg Neuts % (Manual) Lymphocytes % (Manual) Monocytes % (Manual) Nucleated RBC % Seg Neutrophils # Seg Neutrophils # Man Lymphocytes # (Manual) Monocytes # (Manual) Eosinophils # (Manual) Basophils # (Manual) PT 16.7 H INR 1.29 H POC ABG pH ABG pH POC ABG pCO2 POC ABG pO2 338 H ABG pO2 ABG O2 Saturation ABG Base Excess ABG Hemoglobin Oxyhemoglobin Sodium Potassium Chloride Carbon Dioxide BUN Creatinine Glucose POC Glucose Calcium Phosphorus Magnesium Iron TIBC Ferritin Total Bilirubin AST ALT Alkaline Phosphatase Total Creatine Kinase Troponin T C-Reactive Protein Total Protein Albumin Triglycerides HDL Cholesterol Miscellaneous Test Crossmatch See Detail 08/28/17 08/28/17 08/29/17 16:22 19:20 04:24 WBC RBC Hgb Hct MCV MCH MCHC RDW Plt Count Lymph % (Auto) [place] % (Auto) [place] # Seg Neutrophils % Seg Neuts % (Manual) Lymphocytes % (Manual) Monocytes % (Manual) Nucleated RBC % Seg Neutrophils # Seg Neutrophils # Man Lymphocytes # (Manual) Monocytes # (Manual) Eosinophils # (Manual) Basophils # (Manual) PT INR POC ABG pH 7.469 H ABG pH POC ABG pCO2 POC ABG pO2 240 H ABG pO2 ABG O2 Saturation ABG Base Excess ABG Hemoglobin Oxyhemoglobin Sodium Potassium Chloride Carbon Dioxide BUN Creatinine Glucose POC Glucose 209 H 195 H Calcium Phosphorus Magnesium Iron TIBC Ferritin Total Bilirubin AST ALT Alkaline Phosphatase Total Creatine Kinase Troponin T C-Reactive Protein Total Protein Albumin Triglycerides HDL Cholesterol Miscellaneous Test Crossmatch 08/29/17 08/29/17 08/29/17 04:30 04:30 12:07 WBC 44.9 H* RBC Hgb Hct MCV MCH MCHC RDW 23.1 H Plt Count Lymph % (Auto) [place] % (Auto) [place] # Seg Neutrophils % Seg Neuts % (Manual) 38.0 L Lymphocytes % (Manual) 10.0 L Monocytes % (Manual) 10.0 H Nucleated RBC % 6.0 H Seg Neutrophils # Seg Neutrophils # Man 17.1 H Lymphocytes # (Manual) Monocytes # (Manual) 4.5 H Eosinophils # (Manual) Basophils # (Manual) PT INR POC ABG pH ABG pH POC ABG pCO2 POC ABG pO2 ABG pO2 ABG O2 Saturation ABG Base Excess ABG Hemoglobin Oxyhemoglobin Sodium Potassium Chloride Carbon Dioxide BUN 61 H Creatinine 2.4 H Glucose 226 H POC Glucose 200 H Calcium Phosphorus Magnesium Iron TIBC Ferritin Total Bilirubin AST ALT Alkaline Phosphatase Total Creatine Kinase Troponin T C-Reactive Protein Total Protein Albumin Triglycerides HDL Cholesterol Miscellaneous Test Crossmatch 10/04/1008/29/17 08/29/17 12:30 12:30 17:23 WBC RBC Hgb Hct MCV MCH MCHC RDW Plt Count Lymph % (Auto) [place] % (Auto) [place] # Seg Neutrophils % Seg Neuts % (Manual) Lymphocytes % (Manual) Monocytes % (Manual) Nucleated RBC % Seg Neutrophils # Seg Neutrophils # Man Lymphocytes # (Manual) Monocytes # (Manual) Eosinophils # (Manual) Basophils # (Manual) PT INR POC ABG pH ABG pH POC ABG pCO2 POC ABG pO2 ABG pO2 ABG O2 Saturation ABG Base Excess ABG Hemoglobin Oxyhemoglobin Sodium Potassium Chloride Carbon Dioxide BUN Creatinine Glucose POC Glucose 270 H Calcium Phosphorus Magnesium Iron TIBC Ferritin Total Bilirubin AST ALT Alkaline Phosphatase Total Creatine Kinase Troponin T C-Reactive Protein 19.10 H Total Protein Albumin Triglycerides HDL Cholesterol Miscellaneous Test Flexitest 1 H Crossmatch 08/30/17 08/30/17 08/30/17 00:10 01:30 03:31 WBC RBC Hgb Hct MCV MCH MCHC RDW Plt Count Lymph % (Auto) [place] % (Auto) [place] # Seg Neutrophils % Seg Neuts % (Manual) Lymphocytes % (Manual) Monocytes % (Manual) Nucleated RBC % Seg Neutrophils # Seg Neutrophils # Man Lymphocytes # (Manual) Monocytes # (Manual) Eosinophils # (Manual) Basophils # (Manual) PT INR POC ABG pH 7.168 L 7.335 L ABG pH POC ABG pCO2 72.8 H POC ABG pO2 257 H 117 H ABG pO2 ABG O2 Saturation ABG Base Excess ABG Hemoglobin Oxyhemoglobin Sodium Potassium Chloride Carbon Dioxide BUN Creatinine Glucose POC Glucose 245 H Calcium Phosphorus Magnesium Iron TIBC Ferritin Total Bilirubin AST ALT Alkaline Phosphatase Total Creatine Kinase Troponin T C-Reactive Protein Total Protein Albumin Triglycerides HDL Cholesterol Miscellaneous Test Crossmatch 08/30/17 08/30/17 08/30/17 05:20 05:20 05:20 WBC 40.9 H* RBC 3.64 L Hgb Hct MCV MCH MCHC RDW 24.3 H Plt Count Lymph % (Auto) [place] % (Auto) [place] # Seg Neutrophils % Seg Neuts % (Manual) 80.0 H Lymphocytes % (Manual) 3.0 L Monocytes % (Manual) Nucleated RBC % 1.0 H Seg Neutrophils # Seg Neutrophils # Man 32.7 H Lymphocytes # (Manual) Monocytes # (Manual) Eosinophils # (Manual) Basophils # (Manual) PT INR POC ABG pH ABG pH POC ABG pCO2 POC ABG pO2 ABG pO2 ABG O2 Saturation ABG Base Excess ABG Hemoglobin Oxyhemoglobin Sodium Potassium Chloride Carbon Dioxide BUN 83 H Creatinine 2.9 H Glucose 334 H POC Glucose 309 H Calcium Phosphorus Magnesium Iron TIBC Ferritin Total Bilirubin AST ALT Alkaline Phosphatase Total Creatine Kinase Troponin T C-Reactive Protein Total Protein Albumin Triglycerides HDL Cholesterol Miscellaneous Test Crossmatch 08/30/17 08/30/17 08/31/17 12:18 17:36 00:17 WBC RBC Hgb Hct MCV MCH MCHC RDW Plt Count Lymph % (Auto) [place] % (Auto) [place] # Seg Neutrophils % Seg Neuts % (Manual) Lymphocytes % (Manual) Monocytes % (Manual) Nucleated RBC % Seg Neutrophils # Seg Neutrophils # Man Lymphocytes # (Manual) Monocytes # (Manual) Eosinophils # (Manual) Basophils # (Manual) PT INR POC ABG pH ABG pH POC ABG pCO2 POC ABG pO2 ABG pO2 ABG O2 Saturation ABG Base Excess ABG Hemoglobin Oxyhemoglobin Sodium Potassium Chloride Carbon Dioxide BUN Creatinine Glucose POC Glucose 273 H 293 H 360 H Calcium Phosphorus Magnesium Iron TIBC Ferritin Total Bilirubin AST ALT Alkaline Phosphatase Total Creatine Kinase Troponin T C-Reactive Protein Total Protein Albumin Triglycerides HDL Cholesterol Miscellaneous Test Crossmatch 08/31/17 08/31/17 08/31/17 05:30 05:30 05:32 WBC 29.9 H RBC 2.89 L Hgb 8.2 L Hct 24.7 L D MCV MCH MCHC RDW 24.4 H Plt Count Lymph % (Auto) [place] % (Auto) [place] # Seg Neutrophils % Seg Neuts % (Manual) Lymphocytes % (Manual) 2.0 L Monocytes % (Manual) Nucleated RBC % 2.0 H Seg Neutrophils # Seg Neutrophils # Man 18.5 H Lymphocytes # (Manual) 0.6 L Monocytes # (Manual) 0.9 H Eosinophils # (Manual) Basophils # (Manual) PT INR POC ABG pH ABG pH POC ABG pCO2 POC ABG pO2 ABG pO2 ABG O2 Saturation ABG Base Excess ABG Hemoglobin Oxyhemoglobin Sodium Potassium Chloride Carbon Dioxide BUN 62 H Creatinine 2.2 H Glucose 245 H POC Glucose 257 H Calcium Phosphorus 2.10 L D Magnesium 1.60 L Iron TIBC Ferritin Total Bilirubin AST ALT Alkaline Phosphatase Total Creatine Kinase Troponin T C-Reactive Protein Total Protein Albumin Triglycerides HDL Cholesterol Miscellaneous Test Crossmatch 08/31/17 08/31/17 08/31/17 11:56 12:05 18:14 WBC 32.5 H RBC 3.19 L Hgb 8.8 L Hct 27.9 L MCV MCH MCHC RDW 24.9 H Plt Count Lymph % (Auto) [place] % (Auto) [place] # Seg Neutrophils % Seg Neuts % (Manual) Lymphocytes % (Manual) 1.0 L Monocytes % (Manual) 12.0 H Nucleated RBC % 1.0 H Seg Neutrophils # Seg Neutrophils # Man 13.3 H Lymphocytes # (Manual) 0.3 L Monocytes # (Manual) 3.9 H Eosinophils # (Manual) Basophils # (Manual) PT INR POC ABG pH ABG pH POC ABG pCO2 POC ABG pO2 ABG pO2 ABG O2 Saturation ABG Base Excess ABG Hemoglobin Oxyhemoglobin Sodium Potassium Chloride Carbon Dioxide BUN Creatinine Glucose POC Glucose 245 H Calcium Phosphorus Magnesium Iron TIBC Ferritin Total Bilirubin AST ALT Alkaline Phosphatase Total Creatine Kinase Troponin T C-Reactive Protein Total Protein Albumin Triglycerides HDL Cholesterol Miscellaneous Test Crossmatch See Detail 08/31/17 08/31/17 08/31/17 18:14 18:15 18:22 WBC RBC Hgb Hct MCV MCH MCHC RDW Plt Count Lymph % (Auto) [place] % (Auto) [place] # Seg Neutrophils % Seg Neuts % (Manual) Lymphocytes % (Manual) Monocytes % (Manual) Nucleated RBC % Seg Neutrophils # Seg Neutrophils # Man Lymphocytes # (Manual) Monocytes # (Manual) Eosinophils # (Manual) Basophils # (Manual) PT 15.1 H INR POC ABG pH ABG pH POC ABG pCO2 POC ABG pO2 ABG pO2 ABG O2 Saturation ABG Base Excess ABG Hemoglobin Oxyhemoglobin Sodium 136 L Potassium Chloride Carbon Dioxide 21 L BUN 69 H Creatinine 2.3 H Glucose 227 H POC Glucose 240 H Calcium Phosphorus 2.40 L Magnesium 1.50 L Iron TIBC Ferritin Total Bilirubin AST 143 H ALT 114 H Alkaline Phosphatase 267 H Total Creatine Kinase Troponin T C-Reactive Protein Total Protein 4.1 L Albumin 1.8 L Triglycerides HDL Cholesterol Miscellaneous Test Crossmatch 08/31/17 09/01/17 09/01/17 23:53 05:00 05:00 WBC 33.9 H RBC 2.85 L Hgb 7.8 L Hct 24.8 L MCV MCH 27 L MCHC RDW 23.9 H Plt Count Lymph % (Auto) [place] % (Auto) [place] # Seg Neutrophils % Seg Neuts % (Manual) Lymphocytes % (Manual) 5.0 L Monocytes % (Manual) Nucleated RBC % Seg Neutrophils # Seg Neutrophils # Man 23.1 H Lymphocytes # (Manual) Monocytes # (Manual) Eosinophils # (Manual) Basophils # (Manual) PT INR POC ABG pH ABG pH POC ABG pCO2 POC ABG pO2 ABG pO2 ABG O2 Saturation ABG Base Excess ABG Hemoglobin Oxyhemoglobin Sodium Potassium Chloride Carbon Dioxide BUN 51 H Creatinine 1.8 H Glucose 195 H POC Glucose 301 H Calcium Phosphorus 1.70 L D Magnesium 1.60 L Iron TIBC Ferritin Total Bilirubin AST 80 H ALT 82 H Alkaline Phosphatase 243 H Total Creatine Kinase Troponin T C-Reactive Protein Total Protein 4.2 L Albumin 1.7 L Triglycerides HDL Cholesterol Miscellaneous Test Crossmatch 09/01/17 09/01/17 09/01/17 05:20 05:47 11:37 WBC RBC Hgb Hct MCV MCH MCHC RDW Plt Count Lymph % (Auto) [place] % (Auto) [place] # Seg Neutrophils % Seg Neuts % (Manual) Lymphocytes % (Manual) Monocytes % (Manual) Nucleated RBC % Seg Neutrophils # Seg Neutrophils # Man Lymphocytes # (Manual) Monocytes # (Manual) Eosinophils # (Manual) Basophils # (Manual) PT INR POC ABG pH ABG pH 7.348 L POC ABG pCO2 POC ABG pO2 ABG pO2 70.2 L ABG O2 Saturation ABG Base Excess ABG Hemoglobin 7.5 L Oxyhemoglobin Sodium Potassium Chloride Carbon Dioxide BUN Creatinine Glucose POC Glucose 230 H 254 H Calcium Phosphorus Magnesium Iron TIBC Ferritin Total Bilirubin AST ALT Alkaline Phosphatase Total Creatine Kinase Troponin T C-Reactive Protein Total Protein Albumin Triglycerides HDL Cholesterol Miscellaneous Test Crossmatch 09/01/17 09/01/17 09/02/17 17:39 23:14 04:55 WBC RBC Hgb Hct MCV MCH MCHC RDW Plt Count Lymph % (Auto) [place] % (Auto) [place] # Seg Neutrophils % Seg Neuts % (Manual) Lymphocytes % (Manual) Monocytes % (Manual) Nucleated RBC % Seg Neutrophils # Seg Neutrophils # Man Lymphocytes # (Manual) Monocytes # (Manual) Eosinophils # (Manual) Basophils # (Manual) PT INR POC ABG pH ABG pH POC ABG pCO2 POC ABG pO2 ABG pO2 124.8 H ABG O2 Saturation ABG Base Excess -2.9 L ABG Hemoglobin 5.8 L Oxyhemoglobin Sodium Potassium Chloride Carbon Dioxide BUN Creatinine Glucose POC Glucose 297 H 291 H Calcium Phosphorus Magnesium Iron TIBC Ferritin Total Bilirubin AST ALT Alkaline Phosphatase Total Creatine Kinase Troponin T C-Reactive Protein Total Protein Albumin Triglycerides HDL Cholesterol Miscellaneous Test Crossmatch 09/02/17 09/02/17 09/02/17 05:31 06:10 11:58 WBC RBC Hgb Hct MCV MCH MCHC RDW Plt Count Lymph % (Auto) [place] % (Auto) [place] # Seg Neutrophils % Seg Neuts % (Manual) Lymphocytes % (Manual) Monocytes % (Manual) Nucleated RBC % Seg Neutrophils # Seg Neutrophils # Man Lymphocytes # (Manual) Monocytes # (Manual) Eosinophils # (Manual) Basophils # (Manual) PT INR POC ABG pH ABG pH POC ABG pCO2 POC ABG pO2 ABG pO2 ABG O2 Saturation ABG Base Excess ABG Hemoglobin Oxyhemoglobin Sodium Potassium Chloride Carbon Dioxide BUN 68 H Creatinine 2.2 H Glucose 369 H POC Glucose 245 H 333 H Calcium 8.2 L Phosphorus Magnesium Iron TIBC Ferritin Total Bilirubin AST ALT Alkaline Phosphatase Total Creatine Kinase Troponin T C-Reactive Protein Total Protein Albumin Triglycerides HDL Cholesterol Miscellaneous Test Crossmatch 09/02/17 09/02/17 09/03/17 15:37 23:50 04:00 WBC RBC Hgb Hct MCV MCH MCHC RDW Plt Count Lymph % (Auto) [place] % (Auto) [place] # Seg Neutrophils % Seg Neuts % (Manual) Lymphocytes % (Manual) Monocytes % (Manual) Nucleated RBC % Seg Neutrophils # Seg Neutrophils # Man Lymphocytes # (Manual) Monocytes # (Manual) Eosinophils # (Manual) Basophils # (Manual) PT INR POC ABG pH ABG pH POC ABG pCO2 POC ABG pO2 ABG pO2 ABG O2 Saturation ABG Base Excess ABG Hemoglobin Oxyhemoglobin Sodium Potassium Chloride Carbon Dioxide BUN 59 H Creatinine 1.9 H Glucose 231 H POC Glucose 314 H 240 H Calcium 8.0 L Phosphorus Magnesium Iron TIBC Ferritin Total Bilirubin AST ALT Alkaline Phosphatase 265 H Total Creatine Kinase Troponin T C-Reactive Protein Total Protein 4.4 L Albumin 1.7 L Triglycerides 180 H HDL Cholesterol Miscellaneous Test Crossmatch 09/03/17 09/03/1717 05:00 05:32 11:52 WBC 41.5 H* RBC 2.46 L Hgb 6.9 L Hct 21.3 L MCV MCH MCHC RDW 24.9 H Plt Count Lymph % (Auto) [place] % (Auto) [place] # Seg Neutrophils % Seg Neuts % (Manual) Lymphocytes % (Manual) 3.0 L Monocytes % (Manual) 9.5 H Nucleated RBC % 1.5 H Seg Neutrophils # Seg Neutrophils # Man 28.8 H Lymphocytes # (Manual) Monocytes # (Manual) 3.9 H Eosinophils # (Manual) Basophils # (Manual) PT INR POC ABG pH ABG pH POC ABG pCO2 POC ABG pO2 ABG pO2 ABG O2 Saturation ABG Base Excess ABG Hemoglobin Oxyhemoglobin Sodium Potassium Chloride Carbon Dioxide BUN Creatinine Glucose POC Glucose 188 H 285 H Calcium Phosphorus Magnesium Iron TIBC Ferritin Total Bilirubin AST ALT Alkaline Phosphatase Total Creatine Kinase Troponin T C-Reactive Protein Total Protein Albumin Triglycerides HDL Cholesterol Miscellaneous Test Crossmatch 09/03/17 09/03/17 09/03/17 16:55 17:44 23:56 WBC RBC Hgb Hct MCV MCH MCHC RDW Plt Count Lymph % (Auto) [place] % (Auto) [place] # Seg Neutrophils % Seg Neuts % (Manual) Lymphocytes % (Manual) Monocytes % (Manual) Nucleated RBC % Seg Neutrophils # Seg Neutrophils # Man Lymphocytes # (Manual) Monocytes # (Manual) Eosinophils # (Manual) Basophils # (Manual) PT INR POC ABG pH ABG pH POC ABG pCO2 POC ABG pO2 ABG pO2 ABG O2 Saturation ABG Base Excess ABG Hemoglobin Oxyhemoglobin Sodium Potassium Chloride Carbon Dioxide BUN Creatinine Glucose POC Glucose 217 H 193 H Calcium Phosphorus Magnesium Iron TIBC Ferritin Total Bilirubin AST ALT Alkaline Phosphatase Total Creatine Kinase Troponin T C-Reactive Protein Total Protein Albumin Triglycerides HDL Cholesterol Miscellaneous Test Crossmatch See Detail 09/03/17 09/04/17 09/04/17 Unknown 03:47 04:32 WBC 44.7 H* RBC 3.12 L Hgb 8.7 L Hct 26.7 L MCV MCH MCHC RDW 23.5 H Plt Count Lymph % (Auto) [place] % (Auto) [place] # Seg Neutrophils % Seg Neuts % (Manual) Lymphocytes % (Manual) 4.0 L Monocytes % (Manual) Nucleated RBC % 2.0 H Seg Neutrophils # Seg Neutrophils # Man 30.8 H Lymphocytes # (Manual) Monocytes # (Manual) 2.2 H Eosinophils # (Manual) Basophils # (Manual) PT INR POC ABG pH ABG pH POC ABG pCO2 POC ABG pO2 ABG pO2 133.4 H 135.0 H ABG O2 Saturation ABG Base Excess -2.5 L ABG Hemoglobin 5.8 L 7.9 L Oxyhemoglobin Sodium Potassium Chloride Carbon Dioxide BUN Creatinine Glucose POC Glucose Calcium Phosphorus Magnesium Iron TIBC Ferritin Total Bilirubin AST ALT Alkaline Phosphatase Total Creatine Kinase Troponin T C-Reactive Protein Total Protein Albumin Triglycerides HDL Cholesterol Miscellaneous Test Crossmatch 09/04/17 09/04/17 09/04/17 04:32 05:48 10:43 WBC RBC Hgb Hct MCV MCH MCHC RDW Plt Count Lymph % (Auto) [place] % (Auto) [place] # Seg Neutrophils % Seg Neuts % (Manual) Lymphocytes % (Manual) Monocytes % (Manual) Nucleated RBC % Seg Neutrophils # Seg Neutrophils # Man Lymphocytes # (Manual) Monocytes # (Manual) Eosinophils # (Manual) Basophils # (Manual) PT INR POC ABG pH ABG pH POC ABG pCO2 POC ABG pO2 ABG pO2 ABG O2 Saturation ABG Base Excess ABG Hemoglobin Oxyhemoglobin Sodium 136 L Potassium 5.2 H D Chloride 94.2 L Carbon Dioxide BUN 71 H Creatinine 2.3 H Glucose 235 H POC Glucose 329 H Calcium 8.3 L Phosphorus Magnesium Iron TIBC Ferritin Total Bilirubin AST ALT Alkaline Phosphatase Total Creatine Kinase Troponin T C-Reactive Protein Total Protein Albumin Triglycerides HDL Cholesterol Miscellaneous Test Flexitest 1 H Crossmatch 09/04/17 09/04/17 09/05/17 12:38 17:30 00:15 WBC RBC Hgb Hct MCV MCH MCHC RDW Plt Count Lymph % (Auto) [place] % (Auto) [place] # Seg Neutrophils % Seg Neuts % (Manual) Lymphocytes % (Manual) Monocytes % (Manual) Nucleated RBC % Seg Neutrophils # Seg Neutrophils # Man Lymphocytes # (Manual) Monocytes # (Manual) Eosinophils # (Manual) Basophils # (Manual) PT INR POC ABG pH ABG pH POC ABG pCO2 POC ABG pO2 ABG pO2 ABG O2 Saturation ABG Base Excess ABG Hemoglobin Oxyhemoglobin Sodium Potassium Chloride Carbon Dioxide BUN Creatinine Glucose POC Glucose 444 H 331 H 362 H Calcium Phosphorus Magnesium Iron TIBC Ferritin Total Bilirubin AST ALT Alkaline Phosphatase Total Creatine Kinase Troponin T C-Reactive Protein Total Protein Albumin Triglycerides HDL Cholesterol Miscellaneous Test Crossmatch 09/05/17 09/05/17 09/05/17 03:55 03:55 12:12 WBC 35.3 H RBC 2.87 L Hgb 8.1 L Hct 24.6 L MCV MCH MCHC RDW 23.3 H Plt Count Lymph % (Auto) [place] % (Auto) [place] # Seg Neutrophils % Seg Neuts % (Manual) 89.5 H Lymphocytes % (Manual) 3.0 L Monocytes % (Manual) Nucleated RBC % 2.5 H Seg Neutrophils # Seg Neutrophils # Man 31.6 H Lymphocytes # (Manual) 1.1 L Monocytes # (Manual) Eosinophils # (Manual) Basophils # (Manual) PT INR POC ABG pH ABG pH POC ABG pCO2 POC ABG pO2 ABG pO2 ABG O2 Saturation ABG Base Excess ABG Hemoglobin Oxyhemoglobin Sodium 136 L Potassium Chloride 94.7 L Carbon Dioxide BUN 55 H Creatinine 1.8 H Glucose 193 H POC Glucose 344 H Calcium 8.1 L Phosphorus Magnesium Iron TIBC Ferritin Total Bilirubin AST ALT Alkaline Phosphatase Total Creatine Kinase Troponin T C-Reactive Protein Total Protein Albumin Triglycerides HDL Cholesterol Miscellaneous Test Crossmatch 09/05/17 09/05/17 09/05/17 14:32 15:32 16:41 WBC RBC Hgb Hct MCV MCH MCHC RDW Plt Count Lymph % (Auto) [place] % (Auto) [place] # Seg Neutrophils % Seg Neuts % (Manual) Lymphocytes % (Manual) Monocytes % (Manual) Nucleated RBC % Seg Neutrophils # Seg Neutrophils # Man Lymphocytes # (Manual) Monocytes # (Manual) Eosinophils # (Manual) Basophils # (Manual) PT INR POC ABG pH ABG pH POC ABG pCO2 POC ABG pO2 ABG pO2 ABG O2 Saturation ABG Base Excess ABG Hemoglobin Oxyhemoglobin Sodium Potassium Chloride Carbon Dioxide BUN Creatinine Glucose POC Glucose 265 H 145 H 188 H Calcium Phosphorus Magnesium Iron TIBC Ferritin Total Bilirubin AST ALT Alkaline Phosphatase Total Creatine Kinase Troponin T C-Reactive Protein Total Protein Albumin Triglycerides HDL Cholesterol Miscellaneous Test Crossmatch 09/05/17 09/05/17 09/05/17 17:28 18:38 20:10 WBC RBC Hgb Hct MCV MCH MCHC RDW Plt Count Lymph % (Auto) [place] % (Auto) [place] # Seg Neutrophils % Seg Neuts % (Manual) Lymphocytes % (Manual) Monocytes % (Manual) Nucleated RBC % Seg Neutrophils # Seg Neutrophils # Man Lymphocytes # (Manual) Monocytes # (Manual) Eosinophils # (Manual) Basophils # (Manual) PT INR POC ABG pH ABG pH POC ABG pCO2 POC ABG pO2 ABG pO2 ABG O2 Saturation ABG Base Excess ABG Hemoglobin Oxyhemoglobin Sodium Potassium Chloride Carbon Dioxide BUN Creatinine Glucose POC Glucose 246 H 271 H 165 H Calcium Phosphorus Magnesium Iron TIBC Ferritin Total Bilirubin AST ALT Alkaline Phosphatase Total Creatine Kinase Troponin T C-Reactive Protein Total Protein Albumin Triglycerides HDL Cholesterol Miscellaneous Test Crossmatch 09/05/17 09/05/17 09/06/17 21:06 23:07 00:10 WBC RBC Hgb Hct MCV MCH MCHC RDW Plt Count Lymph % (Auto) [place] % (Auto) [place] # Seg Neutrophils % Seg Neuts % (Manual) Lymphocytes % (Manual) Monocytes % (Manual) Nucleated RBC % Seg Neutrophils # Seg Neutrophils # Man Lymphocytes # (Manual) Monocytes # (Manual) Eosinophils # (Manual) Basophils # (Manual) PT INR POC ABG pH ABG pH POC ABG pCO2 POC ABG pO2 ABG pO2 ABG O2 Saturation ABG Base Excess ABG Hemoglobin Oxyhemoglobin Sodium Potassium Chloride Carbon Dioxide BUN Creatinine Glucose POC Glucose 134 H 135 H 147 H Calcium Phosphorus Magnesium Iron TIBC Ferritin Total Bilirubin AST ALT Alkaline Phosphatase Total Creatine Kinase Troponin T C-Reactive Protein Total Protein Albumin Triglycerides HDL Cholesterol Miscellaneous Test Crossmatch 09/06/17 09/06/17 09/06/17 01:08 02:01 03:08 WBC RBC Hgb Hct MCV MCH MCHC RDW Plt Count Lymph % (Auto) [place] % (Auto) [place] # Seg Neutrophils % Seg Neuts % (Manual) Lymphocytes % (Manual) Monocytes % (Manual) Nucleated RBC % Seg Neutrophils # Seg Neutrophils # Man Lymphocytes # (Manual) Monocytes # (Manual) Eosinophils # (Manual) Basophils # (Manual) PT INR POC ABG pH ABG pH POC ABG pCO2 POC ABG pO2 ABG pO2 ABG O2 Saturation ABG Base Excess ABG Hemoglobin Oxyhemoglobin Sodium Potassium Chloride Carbon Dioxide BUN Creatinine Glucose POC Glucose 133 H 146 H 135 H Calcium Phosphorus Magnesium Iron TIBC Ferritin Total Bilirubin AST ALT Alkaline Phosphatase Total Creatine Kinase Troponin T C-Reactive Protein Total Protein Albumin Triglycerides HDL Cholesterol Miscellaneous Test Crossmatch 09/06/17 09/06/17 09/06/17 05:30 05:30 05:30 WBC 38.6 H RBC 2.95 L Hgb 8.3 L Hct 25.3 L MCV MCH MCHC RDW 22.2 H Plt Count Lymph % (Auto) [place] % (Auto) [place] # Seg Neutrophils % Seg Neuts % (Manual) Lymphocytes % (Manual) 2.0 L Monocytes % (Manual) Nucleated RBC % 5.0 H Seg Neutrophils # Seg Neutrophils # Man 25.9 H Lymphocytes # (Manual) 0.8 L Monocytes # (Manual) 1.9 H Eosinophils # (Manual) Basophils # (Manual) PT INR POC ABG pH ABG pH POC ABG pCO2 POC ABG pO2 ABG pO2 ABG O2 Saturation ABG Base Excess ABG Hemoglobin Oxyhemoglobin Sodium 135 L Potassium Chloride 93.5 L Carbon Dioxide BUN 82 H Creatinine 2.3 H Glucose 148 H POC Glucose Calcium Phosphorus Magnesium Iron TIBC Ferritin Total Bilirubin AST ALT Alkaline Phosphatase Total Creatine Kinase Troponin T C-Reactive Protein 2.80 H Total Protein Albumin Triglycerides HDL Cholesterol Miscellaneous Test Crossmatch 09/06/17 09/06/17 09/06/17 05:48 08:04 09:06 WBC RBC Hgb Hct MCV MCH MCHC RDW Plt Count Lymph % (Auto) [place] % (Auto) [place] # Seg Neutrophils % Seg Neuts % (Manual) Lymphocytes % (Manual) Monocytes % (Manual) Nucleated RBC % Seg Neutrophils # Seg Neutrophils # Man Lymphocytes # (Manual) Monocytes # (Manual) Eosinophils # (Manual) Basophils # (Manual) PT INR POC ABG pH ABG pH POC ABG pCO2 POC ABG pO2 ABG pO2 ABG O2 Saturation ABG Base Excess ABG Hemoglobin Oxyhemoglobin Sodium Potassium Chloride Carbon Dioxide BUN Creatinine Glucose POC Glucose 152 H 164 H 172 H Calcium Phosphorus Magnesium Iron TIBC Ferritin Total Bilirubin AST ALT Alkaline Phosphatase Total Creatine Kinase Troponin T C-Reactive Protein Total Protein Albumin Triglycerides HDL Cholesterol Miscellaneous Test Crossmatch 09/06/17 09/06/17 09/06/17 09:57 10:19 10:57 WBC RBC Hgb Hct MCV MCH MCHC RDW Plt Count Lymph % (Auto) [place] % (Auto) [place] # Seg Neutrophils % Seg Neuts % (Manual) Lymphocytes % (Manual) Monocytes % (Manual) Nucleated RBC % Seg Neutrophils # Seg Neutrophils # Man Lymphocytes # (Manual) Monocytes # (Manual) Eosinophils # (Manual) Basophils # (Manual) PT INR POC ABG pH ABG pH POC ABG pCO2 POC ABG pO2 ABG pO2 ABG O2 Saturation ABG Base Excess ABG Hemoglobin Oxyhemoglobin Sodium Potassium Chloride Carbon Dioxide BUN Creatinine Glucose POC Glucose 186 H 162 H Calcium Phosphorus Magnesium Iron TIBC Ferritin Total Bilirubin AST ALT Alkaline Phosphatase Total Creatine Kinase Troponin T C-Reactive Protein Total Protein Albumin Triglycerides HDL Cholesterol Miscellaneous Test Flexitest 1 H Crossmatch 09/06/17 09/06/17 09/06/17 13:12 13:40 17:36 WBC RBC Hgb 8.9 L Hct 28.5 L MCV MCH MCHC RDW Plt Count Lymph % (Auto) [place] % (Auto) [place] # Seg Neutrophils % Seg Neuts % (Manual) Lymphocytes % (Manual) Monocytes % (Manual) Nucleated RBC % Seg Neutrophils # Seg Neutrophils # Man Lymphocytes # (Manual) Monocytes # (Manual) Eosinophils # (Manual) Basophils # (Manual) PT INR POC ABG pH ABG pH POC ABG pCO2 POC ABG pO2 ABG pO2 ABG O2 Saturation ABG Base Excess ABG Hemoglobin Oxyhemoglobin Sodium Potassium Chloride Carbon Dioxide BUN Creatinine Glucose POC Glucose 166 H 161 H Calcium Phosphorus Magnesium Iron TIBC Ferritin Total Bilirubin AST ALT Alkaline Phosphatase Total Creatine Kinase Troponin T C-Reactive Protein Total Protein Albumin Triglycerides HDL Cholesterol Miscellaneous Test Crossmatch 09/07/17 09/07/17 09/07/17 00:13 03:50 03:50 WBC 47.0 H* RBC 2.81 L Hgb 8.1 L Hct 24.1 L MCV MCH MCHC RDW 22.5 H Plt Count Lymph % (Auto) [place] % (Auto) [place] # Seg Neutrophils % Seg Neuts % (Manual) Lymphocytes % (Manual) 9.0 L Monocytes % (Manual) Nucleated RBC % 6.0 H Seg Neutrophils # Seg Neutrophils # Man 27.3 H Lymphocytes # (Manual) Monocytes # (Manual) 0.9 H Eosinophils # (Manual) 1.9 H Basophils # (Manual) PT INR POC ABG pH ABG pH POC ABG pCO2 POC ABG pO2 ABG pO2 ABG O2 Saturation ABG Base Excess ABG Hemoglobin Oxyhemoglobin Sodium 136 L Potassium Chloride 96.3 L Carbon Dioxide BUN 61 H Creatinine 1.7 H Glucose 132 H POC Glucose 183 H Calcium 7.8 L Phosphorus Magnesium Iron TIBC Ferritin Total Bilirubin AST ALT Alkaline Phosphatase Total Creatine Kinase Troponin T C-Reactive Protein Total Protein Albumin Triglycerides HDL Cholesterol Miscellaneous Test Crossmatch 09/07/17 09/07/17 09/07/17 05:12 05:23 11:48 WBC RBC Hgb Hct MCV MCH MCHC RDW Plt Count Lymph % (Auto) [place] % (Auto) [place] # Seg Neutrophils % Seg Neuts % (Manual) Lymphocytes % (Manual) Monocytes % (Manual) Nucleated RBC % Seg Neutrophils # Seg Neutrophils # Man Lymphocytes # (Manual) Monocytes # (Manual) Eosinophils # (Manual) Basophils # (Manual) PT INR POC ABG pH ABG pH POC ABG pCO2 POC ABG pO2 ABG pO2 ABG O2 Saturation ABG Base Excess ABG Hemoglobin 7.7 L Oxyhemoglobin 94.8 L Sodium Potassium Chloride Carbon Dioxide BUN Creatinine Glucose POC Glucose 162 H 200 H Calcium Phosphorus Magnesium Iron TIBC Ferritin Total Bilirubin AST ALT Alkaline Phosphatase Total Creatine Kinase Troponin T C-Reactive Protein Total Protein Albumin Triglycerides HDL Cholesterol Miscellaneous Test Crossmatch 09/07/17 09/07/17 09/08/17 17:07 18:21 00:06 WBC RBC Hgb Hct MCV MCH MCHC RDW Plt Count Lymph % (Auto) [place] % (Auto) [place] # Seg Neutrophils % Seg Neuts % (Manual) Lymphocytes % (Manual) Monocytes % (Manual) Nucleated RBC % Seg Neutrophils # Seg Neutrophils # Man Lymphocytes # (Manual) Monocytes # (Manual) Eosinophils # (Manual) Basophils # (Manual) PT INR POC ABG pH ABG pH POC ABG pCO2 POC ABG pO2 ABG pO2 ABG O2 Saturation ABG Base Excess ABG Hemoglobin Oxyhemoglobin Sodium Potassium Chloride Carbon Dioxide BUN Creatinine Glucose POC Glucose 181 H 168 H Calcium Phosphorus Magnesium Iron TIBC Ferritin Total Bilirubin AST ALT Alkaline Phosphatase Total Creatine Kinase Troponin T C-Reactive Protein Total Protein Albumin Triglycerides HDL Cholesterol Miscellaneous Test Crossmatch See Detail 09/08/17 09/08/17 09/08/17 04:05 04:05 04:41 WBC 49.7 H* RBC 2.58 L Hgb 7.3 L Hct 22.7 L MCV MCH MCHC RDW 22.5 H Plt Count Lymph % (Auto) [place] % (Auto) [place] # Seg Neutrophils % Seg Neuts % (Manual) 90.5 H Lymphocytes % (Manual) 1.5 L Monocytes % (Manual) Nucleated RBC % Seg Neutrophils # Seg Neutrophils # Man 45.0 H Lymphocytes # (Manual) 0.7 L Monocytes # (Manual) 1.7 H Eosinophils # (Manual) Basophils # (Manual) PT INR POC ABG pH ABG pH POC ABG pCO2 POC ABG pO2 ABG pO2 ABG O2 Saturation ABG Base Excess ABG Hemoglobin Oxyhemoglobin Sodium 132 L Potassium Chloride 92.1 L Carbon Dioxide BUN 82 H Creatinine 2.2 H Glucose 162 H POC Glucose 235 H Calcium 8.3 L Phosphorus 5.20 H D Magnesium Iron TIBC Ferritin Total Bilirubin AST ALT Alkaline Phosphatase 199 H Total Creatine Kinase Troponin T C-Reactive Protein Total Protein 4.5 L Albumin 1.7 L Triglycerides HDL Cholesterol Miscellaneous Test Crossmatch 09/08/17 09/08/17 09/08/17 09:21 11:52 17:38 WBC RBC Hgb Hct MCV MCH MCHC RDW Plt Count Lymph % (Auto) [place] % (Auto) [place] # Seg Neutrophils % Seg Neuts % (Manual) Lymphocytes % (Manual) Monocytes % (Manual) Nucleated RBC % Seg Neutrophils # Seg Neutrophils # Man Lymphocytes # (Manual) Monocytes # (Manual) Eosinophils # (Manual) Basophils # (Manual) PT INR POC ABG pH ABG pH POC ABG pCO2 POC ABG pO2 ABG pO2 218.5 H ABG O2 Saturation 99.3 H ABG Base Excess -3.5 L ABG Hemoglobin 7.7 L Oxyhemoglobin Sodium Potassium Chloride Carbon Dioxide BUN Creatinine Glucose POC Glucose 220 H 194 H Calcium Phosphorus Magnesium Iron TIBC Ferritin Total Bilirubin AST ALT Alkaline Phosphatase Total Creatine Kinase Troponin T C-Reactive Protein Total Protein Albumin Triglycerides HDL Cholesterol Miscellaneous Test Crossmatch 09/09/17 09/09/17 09/09/17 00:24 03:37 03:37 WBC 33.5 H RBC 2.36 L Hgb 6.7 L Hct 20.9 L MCV MCH MCHC RDW 22.7 H Plt Count Lymph % (Auto) [place] % (Auto) [place] # Seg Neutrophils % Seg Neuts % (Manual) Lymphocytes % (Manual) Monocytes % (Manual) Nucleated RBC % Seg Neutrophils # Seg Neutrophils # Man Lymphocytes # (Manual) Monocytes # (Manual) Eosinophils # (Manual) Basophils # (Manual) PT INR POC ABG pH ABG pH POC ABG pCO2 POC ABG pO2 ABG pO2 ABG O2 Saturation ABG Base Excess ABG Hemoglobin Oxyhemoglobin Sodium 132 L Potassium Chloride 91.6 L Carbon Dioxide 21 L BUN 101 H Creatinine 2.6 H Glucose 156 H POC Glucose 182 H Calcium 8.3 L Phosphorus 5.90 H Magnesium 2.60 H Iron TIBC Ferritin Total Bilirubin AST ALT Alkaline Phosphatase Total Creatine Kinase Troponin T C-Reactive Protein Total Protein Albumin Triglycerides HDL Cholesterol Miscellaneous Test Crossmatch 09/09/17 09/09/17 09/09/17 05:29 12:03 18:05 WBC RBC Hgb Hct MCV MCH MCHC RDW Plt Count Lymph % (Auto) [place] % (Auto) [place] # Seg Neutrophils % Seg Neuts % (Manual) Lymphocytes % (Manual) Monocytes % (Manual) Nucleated RBC % Seg Neutrophils # Seg Neutrophils # Man Lymphocytes # (Manual) Monocytes # (Manual) Eosinophils # (Manual) Basophils # (Manual) PT INR POC ABG pH ABG pH POC ABG pCO2 POC ABG pO2 ABG pO2 ABG O2 Saturation ABG Base Excess ABG Hemoglobin Oxyhemoglobin Sodium Potassium Chloride Carbon Dioxide BUN Creatinine Glucose POC Glucose 168 H 143 H 173 H Calcium Phosphorus Magnesium Iron TIBC Ferritin Total Bilirubin AST ALT Alkaline Phosphatase Total Creatine Kinase Troponin T C-Reactive Protein Total Protein Albumin Triglycerides HDL Cholesterol Miscellaneous Test Crossmatch 09/09/17 09/09/17 09/10/17 23:30 Unknown 05:04 WBC RBC Hgb Hct MCV MCH MCHC RDW Plt Count Lymph % (Auto) [place] % (Auto) [place] # Seg Neutrophils % Seg Neuts % (Manual) Lymphocytes % (Manual) Monocytes % (Manual) Nucleated RBC % Seg Neutrophils # Seg Neutrophils # Man Lymphocytes # (Manual) Monocytes # (Manual) Eosinophils # (Manual) Basophils # (Manual) PT INR POC ABG pH ABG pH 7.323 L POC ABG pCO2 POC ABG pO2 ABG pO2 94.1 H ABG O2 Saturation ABG Base Excess -4.8 L ABG Hemoglobin 8.0 L Oxyhemoglobin 94.9 L Sodium Potassium Chloride Carbon Dioxide BUN Creatinine Glucose POC Glucose 212 H 155 H Calcium Phosphorus Magnesium Iron TIBC Ferritin Total Bilirubin AST ALT Alkaline Phosphatase Total Creatine Kinase Troponin T C-Reactive Protein Total Protein Albumin Triglycerides HDL Cholesterol Miscellaneous Test Crossmatch 09/10/17 09/10/17 09/10/17 07:00 09:55 12:22 WBC 24.7 H RBC 2.62 L Hgb 7.5 L Hct 22.5 L MCV MCH MCHC RDW 20.8 H Plt Count Lymph % (Auto) [place] % (Auto) [place] # Seg Neutrophils % Seg Neuts % (Manual) Lymphocytes % (Manual) Monocytes % (Manual) Nucleated RBC % Seg Neutrophils # Seg Neutrophils # Man Lymphocytes # (Manual) Monocytes # (Manual) Eosinophils # (Manual) Basophils # (Manual) PT INR POC ABG pH ABG pH POC ABG pCO2 POC ABG pO2 ABG pO2 ABG O2 Saturation ABG Base Excess ABG Hemoglobin Oxyhemoglobin Sodium Potassium Chloride 97.9 L Carbon Dioxide BUN 78 H Creatinine 2.0 H Glucose 126 H POC Glucose 183 H Calcium 8.2 L Phosphorus Magnesium Iron TIBC Ferritin Total Bilirubin AST ALT Alkaline Phosphatase Total Creatine Kinase Troponin T C-Reactive Protein Total Protein Albumin Triglycerides HDL Cholesterol Miscellaneous Test Crossmatch 09/11/17 09/11/17 09/11/17 00:08 03:50 05:28 WBC 21.6 H RBC 2.52 L Hgb 7.4 L Hct 22.2 L MCV MCH MCHC RDW 21.5 H Plt Count Lymph % (Auto) [place] % (Auto) [place] # Seg Neutrophils % Seg Neuts % (Manual) 92.0 H Lymphocytes % (Manual) 3.0 L Monocytes % (Manual) Nucleated RBC % Seg Neutrophils # Seg Neutrophils # Man 19.9 H Lymphocytes # (Manual) 0.6 L Monocytes # (Manual) Eosinophils # (Manual) Basophils # (Manual) PT INR POC ABG pH ABG pH POC ABG pCO2 POC ABG pO2 ABG pO2 ABG O2 Saturation ABG Base Excess ABG Hemoglobin Oxyhemoglobin Sodium Potassium Chloride Carbon Dioxide BUN Creatinine Glucose POC Glucose 213 H 181 H Calcium Phosphorus Magnesium Iron TIBC Ferritin Total Bilirubin AST ALT Alkaline Phosphatase Total Creatine Kinase Troponin T C-Reactive Protein Total Protein Albumin Triglycerides HDL Cholesterol Miscellaneous Test Crossmatch 09/11/17 09/11/17 09/11/17 11:55 17:56 23:12 WBC RBC Hgb Hct MCV MCH MCHC RDW Plt Count Lymph % (Auto) [place] % (Auto) [place] # Seg Neutrophils % Seg Neuts % (Manual) Lymphocytes % (Manual) Monocytes % (Manual) Nucleated RBC % Seg Neutrophils # Seg Neutrophils # Man Lymphocytes # (Manual) Monocytes # (Manual) Eosinophils # (Manual) Basophils # (Manual) PT INR POC ABG pH ABG pH POC ABG pCO2 POC ABG pO2 ABG pO2 ABG O2 Saturation ABG Base Excess ABG Hemoglobin Oxyhemoglobin Sodium Potassium Chloride Carbon Dioxide 21 L BUN 80 H Creatinine 2.1 H Glucose 170 H POC Glucose 277 H 206 H Calcium 8.0 L Phosphorus Magnesium Iron TIBC Ferritin Total Bilirubin AST ALT Alkaline Phosphatase Total Creatine Kinase Troponin T C-Reactive Protein Total Protein Albumin Triglycerides HDL Cholesterol Miscellaneous Test Crossmatch 09/11/17 09/12/17 09/12/17 23:36 05:25 05:25 WBC 17.4 H RBC 2.29 L Hgb 6.7 L Hct 20.4 L MCV MCH MCHC RDW 21.2 H Plt Count Lymph % (Auto) [place] % (Auto) [place] # Seg Neutrophils % Seg Neuts % (Manual) 79.0 H Lymphocytes % (Manual) 5.0 L Monocytes % (Manual) Nucleated RBC % 1.0 H Seg Neutrophils # Seg Neutrophils # Man 13.7 H Lymphocytes # (Manual) 0.9 L Monocytes # (Manual) 1.2 H Eosinophils # (Manual) Basophils # (Manual) PT INR POC ABG pH ABG pH POC ABG pCO2 POC ABG pO2 ABG pO2 ABG O2 Saturation ABG Base Excess ABG Hemoglobin Oxyhemoglobin Sodium Potassium Chloride Carbon Dioxide BUN Creatinine Glucose POC Glucose 190 H Calcium Phosphorus Magnesium Iron 22 L TIBC 81 L Ferritin Total Bilirubin AST ALT Alkaline Phosphatase Total Creatine Kinase Troponin T C-Reactive Protein Total Protein Albumin Triglycerides HDL Cholesterol Miscellaneous Test Crossmatch 09/12/17 09/12/17 09/12/17 05:25 05:36 09:14 WBC RBC Hgb Hct MCV MCH MCHC RDW Plt Count Lymph % (Auto) [place] % (Auto) [place] # Seg Neutrophils % Seg Neuts % (Manual) Lymphocytes % (Manual) Monocytes % (Manual) Nucleated RBC % Seg Neutrophils # Seg Neutrophils # Man Lymphocytes # (Manual) Monocytes # (Manual) Eosinophils # (Manual) Basophils # (Manual) PT INR POC ABG pH ABG pH POC ABG pCO2 POC ABG pO2 ABG pO2 ABG O2 Saturation ABG Base Excess ABG Hemoglobin Oxyhemoglobin Sodium Potassium Chloride Carbon Dioxide BUN Creatinine Glucose POC Glucose 141 H Calcium Phosphorus Magnesium Iron TIBC Ferritin > 2000.0 H Total Bilirubin AST ALT Alkaline Phosphatase Total Creatine Kinase Troponin T C-Reactive Protein Total Protein Albumin Triglycerides HDL Cholesterol Miscellaneous Test Crossmatch See Detail 09/12/17 09/12/17 09/12/17 11:18 15:22 17:18 WBC RBC Hgb 8.5 L Hct 25.4 L MCV MCH MCHC RDW Plt Count Lymph % (Auto) [place] % (Auto) [place] # Seg Neutrophils % Seg Neuts % (Manual) Lymphocytes % (Manual) Monocytes % (Manual) Nucleated RBC % Seg Neutrophils # Seg Neutrophils # Man Lymphocytes # (Manual) Monocytes # (Manual) Eosinophils # (Manual) Basophils # (Manual) PT INR POC ABG pH ABG pH POC ABG pCO2 POC ABG pO2 ABG pO2 ABG O2 Saturation ABG Base Excess ABG Hemoglobin Oxyhemoglobin Sodium Potassium Chloride Carbon Dioxide BUN Creatinine Glucose POC Glucose 262 H 193 H Calcium Phosphorus Magnesium Iron TIBC Ferritin Total Bilirubin AST ALT Alkaline Phosphatase Total Creatine Kinase Troponin T C-Reactive Protein Total Protein Albumin Triglycerides HDL Cholesterol Miscellaneous Test Crossmatch 09/13/17 09/13/17 09/13/17 00:05 06:25 11:36 WBC RBC Hgb Hct MCV MCH MCHC RDW Plt Count Lymph % (Auto) [place] % (Auto) [place] # Seg Neutrophils % Seg Neuts % (Manual) Lymphocytes % (Manual) Monocytes % (Manual) Nucleated RBC % Seg Neutrophils # Seg Neutrophils # Man Lymphocytes # (Manual) Monocytes # (Manual) Eosinophils # (Manual) Basophils # (Manual) PT INR POC ABG pH 7.347 L ABG pH POC ABG pCO2 34.3 L POC ABG pO2 134 H ABG pO2 ABG O2 Saturation ABG Base Excess ABG Hemoglobin Oxyhemoglobin Sodium Potassium Chloride Carbon Dioxide BUN Creatinine Glucose POC Glucose 235 H 286 H Calcium Phosphorus Magnesium Iron TIBC Ferritin Total Bilirubin AST ALT Alkaline Phosphatase Total Creatine Kinase Troponin T C-Reactive Protein Total Protein Albumin Triglycerides HDL Cholesterol Miscellaneous Test Crossmatch 09/13/17 09/13/17 09/13/17 11:56 17:25 23:18 WBC RBC Hgb Hct MCV MCH MCHC RDW Plt Count Lymph % (Auto) [place] % (Auto) [place] # Seg Neutrophils % Seg Neuts % (Manual) Lymphocytes % (Manual) Monocytes % (Manual) Nucleated RBC % Seg Neutrophils # Seg Neutrophils # Man Lymphocytes # (Manual) Monocytes # (Manual) Eosinophils # (Manual) Basophils # (Manual) PT INR POC ABG pH ABG pH POC ABG pCO2 POC ABG pO2 ABG pO2 ABG O2 Saturation ABG Base Excess ABG Hemoglobin Oxyhemoglobin Sodium Potassium Chloride Carbon Dioxide BUN Creatinine Glucose POC Glucose 318 H 278 H 230 H Calcium Phosphorus Magnesium Iron TIBC Ferritin Total Bilirubin AST ALT Alkaline Phosphatase Total Creatine Kinase Troponin T C-Reactive Protein Total Protein Albumin Triglycerides HDL Cholesterol Miscellaneous Test Crossmatch 09/13/17 09/13/17 09/13/17 Unknown Unknown Unknown WBC 15.6 H RBC 2.72 L Hgb 8.1 L Hct 23.9 L MCV MCH MCHC RDW 19.5 H Plt Count 137 L Lymph % (Auto) [place] % (Auto) [place] # Seg Neutrophils % Seg Neuts % (Manual) 73.0 H Lymphocytes % (Manual) 3.0 L Monocytes % (Manual) 19.0 H Nucleated RBC % 2.0 H Seg Neutrophils # Seg Neutrophils # Man 11.4 H Lymphocytes # (Manual) 0.5 L Monocytes # (Manual) 3.0 H Eosinophils # (Manual) Basophils # (Manual) PT INR POC ABG pH ABG pH POC ABG pCO2 POC ABG pO2 ABG pO2 ABG O2 Saturation ABG Base Excess ABG Hemoglobin Oxyhemoglobin Sodium Potassium Chloride Carbon Dioxide 19 L BUN 103 H Creatinine 2.6 H Glucose 173 H POC Glucose Calcium Phosphorus Magnesium Iron TIBC Ferritin Total Bilirubin AST ALT Alkaline Phosphatase Total Creatine Kinase Troponin T C-Reactive Protein Total Protein Albumin < 0.2 L Triglycerides HDL Cholesterol Miscellaneous Test Crossmatch 09/14/17 09/14/17 09/14/17 03:15 03:15 05:16 WBC 12.5 H RBC 2.55 L Hgb 7.6 L Hct 22.5 L MCV MCH MCHC RDW 19.8 H Plt Count 139 L Lymph % (Auto) [place] % (Auto) [place] # Seg Neutrophils % Seg Neuts % (Manual) Lymphocytes % (Manual) Monocytes % (Manual) Nucleated RBC % Seg Neutrophils # Seg Neutrophils # Man Lymphocytes # (Manual) Monocytes # (Manual) Eosinophils # (Manual) Basophils # (Manual) PT INR POC ABG pH ABG pH POC ABG pCO2 POC ABG pO2 ABG pO2 ABG O2 Saturation ABG Base Excess ABG Hemoglobin Oxyhemoglobin Sodium Potassium Chloride Carbon Dioxide BUN 75 H Creatinine 2.1 H Glucose 217 H POC Glucose 283 H Calcium Phosphorus 2.20 L D Magnesium Iron TIBC Ferritin Total Bilirubin AST ALT Alkaline Phosphatase Total Creatine Kinase Troponin T C-Reactive Protein Total Protein Albumin Triglycerides HDL Cholesterol Miscellaneous Test Crossmatch 09/14/17 09/14/17 09/15/17 12:11 17:47 00:03 WBC RBC Hgb Hct MCV MCH MCHC RDW Plt Count Lymph % (Auto) [place] % (Auto) [place] # Seg Neutrophils % Seg Neuts % (Manual) Lymphocytes % (Manual) Monocytes % (Manual) Nucleated RBC % Seg Neutrophils # Seg Neutrophils # Man Lymphocytes # (Manual) Monocytes # (Manual) Eosinophils # (Manual) Basophils # (Manual) PT INR POC ABG pH ABG pH POC ABG pCO2 POC ABG pO2 ABG pO2 ABG O2 Saturation ABG Base Excess ABG Hemoglobin Oxyhemoglobin Sodium Potassium Chloride Carbon Dioxide BUN Creatinine Glucose POC Glucose 251 H 289 H 229 H Calcium Phosphorus Magnesium Iron TIBC Ferritin Total Bilirubin AST ALT Alkaline Phosphatase Total Creatine Kinase Troponin T C-Reactive Protein Total Protein Albumin Triglycerides HDL Cholesterol Miscellaneous Test Crossmatch 09/15/17 09/15/17 09/15/17 05:00 05:00 05:30 WBC 11.7 H RBC 2.50 L Hgb 7.4 L Hct 22.7 L MCV MCH MCHC RDW 20.5 H Plt Count Lymph % (Auto) [place] % (Auto) [place] # Seg Neutrophils % Seg Neuts % (Manual) Lymphocytes % (Manual) 11.0 L Monocytes % (Manual) 11.0 H Nucleated RBC % Seg Neutrophils # Seg Neutrophils # Man Lymphocytes # (Manual) Monocytes # (Manual) 1.3 H Eosinophils # (Manual) Basophils # (Manual) PT INR POC ABG pH ABG pH POC ABG pCO2 POC ABG pO2 ABG pO2 ABG O2 Saturation ABG Base Excess ABG Hemoglobin Oxyhemoglobin Sodium Potassium Chloride 97.0 L Carbon Dioxide 21 L BUN 94 H Creatinine 2.4 H Glucose 194 H POC Glucose 225 H Calcium Phosphorus Magnesium Iron TIBC Ferritin Total Bilirubin AST ALT Alkaline Phosphatase Total Creatine Kinase Troponin T C-Reactive Protein Total Protein Albumin Triglycerides HDL Cholesterol Miscellaneous Test Crossmatch 09/15/17 09/15/17 09/15/17 07:48 11:38 12:45 WBC RBC 1.93 L Hgb 5.7 L* Hct 17.1 L* MCV MCH MCHC RDW 20.2 H Plt Count 125 L Lymph % (Auto) [place] % (Auto) [place] # Seg Neutrophils % Seg Neuts % (Manual) 79.0 H Lymphocytes % (Manual) 8.0 L Monocytes % (Manual) Nucleated RBC % Seg Neutrophils # Seg Neutrophils # Man Lymphocytes # (Manual) 0.8 L Monocytes # (Manual) Eosinophils # (Manual) Basophils # (Manual) PT INR POC ABG pH ABG pH POC ABG pCO2 POC ABG pO2 ABG pO2 ABG O2 Saturation ABG Base Excess ABG Hemoglobin Oxyhemoglobin Sodium Potassium Chloride Carbon Dioxide BUN Creatinine Glucose POC Glucose 245 H 253 H Calcium Phosphorus Magnesium Iron TIBC Ferritin Total Bilirubin AST ALT Alkaline Phosphatase Total Creatine Kinase Troponin T C-Reactive Protein Total Protein Albumin Triglycerides HDL Cholesterol Miscellaneous Test Crossmatch 09/15/17 09/15/17 09/15/17 12:45 12:45 22:25 WBC 19.6 H RBC 3.32 L Hgb 10.0 L D Hct 29.3 L D MCV MCH MCHC RDW 17.0 H Plt Count 123 L Lymph % (Auto) [place] % (Auto) [place] # Seg Neutrophils % Seg Neuts % (Manual) Lymphocytes % (Manual) 12.0 L Monocytes % (Manual) Nucleated RBC % 5.0 H Seg Neutrophils # Seg Neutrophils # Man 11.0 H Lymphocytes # (Manual) Monocytes # (Manual) 1.2 H Eosinophils # (Manual) Basophils # (Manual) PT 15.4 H INR 1.16 H POC ABG pH ABG pH POC ABG pCO2 POC ABG pO2 ABG pO2 ABG O2 Saturation ABG Base Excess ABG Hemoglobin Oxyhemoglobin Sodium Potassium Chloride Carbon Dioxide BUN Creatinine Glucose POC Glucose Calcium Phosphorus Magnesium Iron TIBC Ferritin Total Bilirubin AST ALT Alkaline Phosphatase Total Creatine Kinase Troponin T C-Reactive Protein Total Protein Albumin Triglycerides HDL Cholesterol Miscellaneous Test Crossmatch See Detail 09/15/17 09/15/17 09/16/17 22:25 23:38 01:26 WBC RBC Hgb Hct MCV MCH MCHC RDW Plt Count Lymph % (Auto) [place] % (Auto) [place] # Seg Neutrophils % Seg Neuts % (Manual) Lymphocytes % (Manual) Monocytes % (Manual) Nucleated RBC % Seg Neutrophils # Seg Neutrophils # Man Lymphocytes # (Manual) Monocytes # (Manual) Eosinophils # (Manual) Basophils # (Manual) PT INR POC ABG pH ABG pH POC ABG pCO2 POC ABG pO2 ABG pO2 ABG O2 Saturation ABG Base Excess ABG Hemoglobin Oxyhemoglobin Sodium Potassium Chloride Carbon Dioxide 17 L BUN 100 H Creatinine 2.6 H Glucose POC Glucose 58 L 132 H Calcium 8.3 L Phosphorus Magnesium 1.60 L Iron TIBC Ferritin Total Bilirubin 2.80 H AST 118 H ALT Alkaline Phosphatase 316 H Total Creatine Kinase Troponin T C-Reactive Protein Total Protein 4.0 L Albumin 1.8 L Triglycerides HDL Cholesterol Miscellaneous Test Crossmatch 09/16/17 09/16/17 09/16/17 05:30 05:30 05:54 WBC 24.6 H RBC 3.22 L Hgb 9.8 L Hct 28.6 L MCV MCH MCHC RDW 17.4 H Plt Count 127 L Lymph % (Auto) [place] % (Auto) [place] # Seg Neutrophils % Seg Neuts % (Manual) Lymphocytes % (Manual) Monocytes % (Manual) Nucleated RBC % Seg Neutrophils # Seg Neutrophils # Man Lymphocytes # (Manual) Monocytes # (Manual) Eosinophils # (Manual) Basophils # (Manual) PT INR POC ABG pH ABG pH POC ABG pCO2 POC ABG pO2 ABG pO2 ABG O2 Saturation ABG Base Excess ABG Hemoglobin Oxyhemoglobin Sodium Potassium Chloride Carbon Dioxide 18 L BUN 109 H Creatinine 2.5 H Glucose 140 H POC Glucose 154 H Calcium Phosphorus 4.80 H Magnesium Iron TIBC Ferritin Total Bilirubin 2.40 H AST 90 H ALT Alkaline Phosphatase 298 H Total Creatine Kinase 20 L Troponin T C-Reactive Protein Total Protein 4.1 L Albumin 1.8 L Triglycerides HDL Cholesterol Miscellaneous Test Crossmatch 09/16/17 09/16/17 09/16/17 11:49 17:04 23:18 WBC RBC Hgb Hct MCV MCH MCHC RDW Plt Count Lymph % (Auto) [place] % (Auto) [place] # Seg Neutrophils % Seg Neuts % (Manual) Lymphocytes % (Manual) Monocytes % (Manual) Nucleated RBC % Seg Neutrophils # Seg Neutrophils # Man Lymphocytes # (Manual) Monocytes # (Manual) Eosinophils # (Manual) Basophils # (Manual) PT INR POC ABG pH ABG pH POC ABG pCO2 POC ABG pO2 ABG pO2 ABG O2 Saturation ABG Base Excess ABG Hemoglobin Oxyhemoglobin Sodium Potassium Chloride Carbon Dioxide BUN Creatinine Glucose POC Glucose 167 H 156 H 162 H Calcium Phosphorus Magnesium Iron TIBC Ferritin Total Bilirubin AST ALT Alkaline Phosphatase Total Creatine Kinase Troponin T C-Reactive Protein Total Protein Albumin Triglycerides HDL Cholesterol Miscellaneous Test Crossmatch 09/17/17 09/17/17 09/17/17 05:27 06:10 06:10 WBC 34.6 H RBC 2.75 L Hgb 8.4 L Hct 24.8 L MCV MCH MCHC RDW 18.3 H Plt Count Lymph % (Auto) [place] % (Auto) [place] # Seg Neutrophils % Seg Neuts % (Manual) 77.0 H Lymphocytes % (Manual) 5.0 L Monocytes % (Manual) Nucleated RBC % 2.0 H Seg Neutrophils # Seg Neutrophils # Man 26.6 H Lymphocytes # (Manual) Monocytes # (Manual) 2.4 H Eosinophils # (Manual) Basophils # (Manual) PT INR POC ABG pH ABG pH POC ABG pCO2 POC ABG pO2 ABG pO2 ABG O2 Saturation ABG Base Excess ABG Hemoglobin Oxyhemoglobin Sodium Potassium Chloride Carbon Dioxide BUN 82 H Creatinine 2.1 H Glucose 252 H POC Glucose 243 H Calcium 8.3 L Phosphorus Magnesium Iron TIBC Ferritin Total Bilirubin AST ALT Alkaline Phosphatase Total Creatine Kinase Troponin T C-Reactive Protein Total Protein Albumin Triglycerides HDL Cholesterol Miscellaneous Test Crossmatch 09/17/17 09/17/17 09/18/17 11:42 17:12 00:08 WBC RBC Hgb Hct MCV MCH MCHC RDW Plt Count Lymph % (Auto) [place] % (Auto) [place] # Seg Neutrophils % Seg Neuts % (Manual) Lymphocytes % (Manual) Monocytes % (Manual) Nucleated RBC % Seg Neutrophils # Seg Neutrophils # Man Lymphocytes # (Manual) Monocytes # (Manual) Eosinophils # (Manual) Basophils # (Manual) PT INR POC ABG pH ABG pH POC ABG pCO2 POC ABG pO2 ABG pO2 ABG O2 Saturation ABG Base Excess ABG Hemoglobin Oxyhemoglobin Sodium Potassium Chloride Carbon Dioxide BUN Creatinine Glucose POC Glucose 232 H 309 H 275 H Calcium Phosphorus Magnesium Iron TIBC Ferritin Total Bilirubin AST ALT Alkaline Phosphatase Total Creatine Kinase Troponin T C-Reactive Protein Total Protein Albumin Triglycerides HDL Cholesterol Miscellaneous Test Crossmatch 09/18/17 09/18/17 09/18/17 05:10 05:10 05:23 WBC 24.4 H RBC 2.57 L Hgb 7.8 L Hct 23.2 L MCV MCH MCHC RDW 19.5 H Plt Count Lymph % (Auto) [place] % (Auto) [place] # Seg Neutrophils % Seg Neuts % (Manual) 78.0 H Lymphocytes % (Manual) 6.0 L Monocytes % (Manual) Nucleated RBC % 2.0 H Seg Neutrophils # Seg Neutrophils # Man 19.0 H Lymphocytes # (Manual) Monocytes # (Manual) Eosinophils # (Manual) Basophils # (Manual) PT INR POC ABG pH ABG pH POC ABG pCO2 POC ABG pO2 ABG pO2 ABG O2 Saturation ABG Base Excess ABG Hemoglobin Oxyhemoglobin Sodium Potassium Chloride Carbon Dioxide BUN 103 H Creatinine 2.8 H Glucose 173 H POC Glucose 224 H Calcium Phosphorus Magnesium Iron TIBC Ferritin Total Bilirubin AST ALT Alkaline Phosphatase Total Creatine Kinase Troponin T C-Reactive Protein Total Protein Albumin Triglycerides HDL Cholesterol Miscellaneous Test Crossmatch 09/18/17 09/18/17 09/18/17 13:59 18:35 23:19 WBC RBC Hgb Hct MCV MCH MCHC RDW Plt Count Lymph % (Auto) [place] % (Auto) [place] # Seg Neutrophils % Seg Neuts % (Manual) Lymphocytes % (Manual) Monocytes % (Manual) Nucleated RBC % Seg Neutrophils # Seg Neutrophils # Man Lymphocytes # (Manual) Monocytes # (Manual) Eosinophils # (Manual) Basophils # (Manual) PT INR POC ABG pH ABG pH POC ABG pCO2 POC ABG pO2 ABG pO2 ABG O2 Saturation ABG Base Excess ABG Hemoglobin Oxyhemoglobin Sodium Potassium Chloride Carbon Dioxide BUN Creatinine Glucose POC Glucose 268 H 220 H 188 H Calcium Phosphorus Magnesium Iron TIBC Ferritin Total Bilirubin AST ALT Alkaline Phosphatase Total Creatine Kinase Troponin T C-Reactive Protein Total Protein Albumin Triglycerides HDL Cholesterol Miscellaneous Test Crossmatch 09/19/17 09/19/17 09/19/17 05:45 06:00 11:41 WBC 17.6 H RBC 2.57 L Hgb 7.9 L Hct 23.2 L MCV MCH MCHC RDW 19.0 H Plt Count Lymph % (Auto) [place] % (Auto) [place] # Seg Neutrophils % Seg Neuts % (Manual) Lymphocytes % (Manual) 9.0 L Monocytes % (Manual) Nucleated RBC % Seg Neutrophils # Seg Neutrophils # Man 11.4 H Lymphocytes # (Manual) Monocytes # (Manual) 0.9 H Eosinophils # (Manual) Basophils # (Manual) PT INR POC ABG pH ABG pH POC ABG pCO2 POC ABG pO2 ABG pO2 ABG O2 Saturation ABG Base Excess ABG Hemoglobin Oxyhemoglobin Sodium Potassium Chloride Carbon Dioxide BUN Creatinine Glucose POC Glucose 178 H 126 H Calcium Phosphorus Magnesium Iron TIBC Ferritin Total Bilirubin AST ALT Alkaline Phosphatase Total Creatine Kinase Troponin T C-Reactive Protein Total Protein Albumin Triglycerides HDL Cholesterol Miscellaneous Test Crossmatch 09/19/17 09/19/17 09/20/17 17:08 23:46 04:46 WBC RBC Hgb Hct MCV MCH MCHC RDW Plt Count Lymph % (Auto) [place] % (Auto) [place] # Seg Neutrophils % Seg Neuts % (Manual) Lymphocytes % (Manual) Monocytes % (Manual) Nucleated RBC % Seg Neutrophils # Seg Neutrophils # Man Lymphocytes # (Manual) Monocytes # (Manual) Eosinophils # (Manual) Basophils # (Manual) PT INR POC ABG pH ABG pH POC ABG pCO2 POC ABG pO2 ABG pO2 ABG O2 Saturation ABG Base Excess ABG Hemoglobin Oxyhemoglobin Sodium Potassium 5.2 H D Chloride 97.4 L Carbon Dioxide 20 L BUN 98 H Creatinine 2.4 H Glucose 187 H POC Glucose 263 H 161 H Calcium Phosphorus Magnesium Iron TIBC Ferritin Total Bilirubin AST ALT Alkaline Phosphatase Total Creatine Kinase Troponin T C-Reactive Protein Total Protein Albumin Triglycerides HDL Cholesterol Miscellaneous Test Crossmatch 09/20/17 09/20/17 09/20/17 05:38 11:36 11:41 WBC 24.5 H RBC 2.84 L Hgb 8.2 L Hct 26.2 L MCV MCH MCHC RDW 20.0 H Plt Count 470 H Lymph % (Auto) [place] % (Auto) [place] # Seg Neutrophils % Seg Neuts % (Manual) Lymphocytes % (Manual) Monocytes % (Manual) Nucleated RBC % Seg Neutrophils # Seg Neutrophils # Man Lymphocytes # (Manual) Monocytes # (Manual) Eosinophils # (Manual) Basophils # (Manual) PT INR POC ABG pH ABG pH POC ABG pCO2 POC ABG pO2 ABG pO2 ABG O2 Saturation ABG Base Excess ABG Hemoglobin Oxyhemoglobin Sodium Potassium Chloride Carbon Dioxide BUN Creatinine Glucose POC Glucose 215 H 220 H Calcium Phosphorus Magnesium Iron TIBC Ferritin Total Bilirubin AST ALT Alkaline Phosphatase Total Creatine Kinase Troponin T C-Reactive Protein Total Protein Albumin Triglycerides HDL Cholesterol Miscellaneous Test Crossmatch 09/20/17 09/21/17 09/21/17 17:45 00:51 04:00 WBC RBC Hgb Hct MCV MCH MCHC RDW Plt Count Lymph % (Auto) [place] % (Auto) [place] # Seg Neutrophils % Seg Neuts % (Manual) Lymphocytes % (Manual) Monocytes % (Manual) Nucleated RBC % Seg Neutrophils # Seg Neutrophils # Man Lymphocytes # (Manual) Monocytes # (Manual) Eosinophils # (Manual) Basophils # (Manual) PT INR POC ABG pH ABG pH POC ABG pCO2 POC ABG pO2 ABG pO2 ABG O2 Saturation ABG Base Excess ABG Hemoglobin Oxyhemoglobin Sodium Potassium 3.2 L D Chloride 96.4 L Carbon Dioxide BUN 63 H Creatinine 1.8 H Glucose 204 H POC Glucose 122 H 137 H Calcium 8.3 L Phosphorus 2.10 L D Magnesium 1.50 L Iron TIBC Ferritin Total Bilirubin AST ALT Alkaline Phosphatase Total Creatine Kinase Troponin T C-Reactive Protein Total Protein Albumin Triglycerides HDL Cholesterol Miscellaneous Test Crossmatch 09/21/17 09/21/17 09/21/17 05:45 08:30 11:50 WBC 27.5 H RBC 2.52 L Hgb 7.7 L Hct 22.8 L MCV MCH MCHC RDW 19.2 H Plt Count 457 H Lymph % (Auto) [place] % (Auto) [place] # Seg Neutrophils % Seg Neuts % (Manual) Lymphocytes % (Manual) Monocytes % (Manual) Nucleated RBC % Seg Neutrophils # Seg Neutrophils # Man Lymphocytes # (Manual) Monocytes # (Manual) Eosinophils # (Manual) Basophils # (Manual) PT INR POC ABG pH ABG pH POC ABG pCO2 POC ABG pO2 ABG pO2 ABG O2 Saturation ABG Base Excess ABG Hemoglobin Oxyhemoglobin Sodium Potassium Chloride Carbon Dioxide BUN Creatinine Glucose POC Glucose 243 H Calcium Phosphorus Magnesium Iron TIBC Ferritin Total Bilirubin AST ALT Alkaline Phosphatase Total Creatine Kinase Troponin T C-Reactive Protein Total Protein Albumin Triglycerides HDL Cholesterol Miscellaneous Test Crossmatch See Detail 09/21/17 09/21/17 09/22/17 13:03 16:39 00:09 WBC RBC Hgb Hct MCV MCH MCHC RDW Plt Count Lymph % (Auto) [place] % (Auto) [place] # Seg Neutrophils % Seg Neuts % (Manual) Lymphocytes % (Manual) Monocytes % (Manual) Nucleated RBC % Seg Neutrophils # Seg Neutrophils # Man Lymphocytes # (Manual) Monocytes # (Manual) Eosinophils # (Manual) Basophils # (Manual) PT INR POC ABG pH ABG pH POC ABG pCO2 POC ABG pO2 ABG pO2 ABG O2 Saturation ABG Base Excess ABG Hemoglobin Oxyhemoglobin Sodium Potassium Chloride Carbon Dioxide BUN Creatinine Glucose POC Glucose 271 H 160 H 191 H Calcium Phosphorus Magnesium Iron TIBC Ferritin Total Bilirubin AST ALT Alkaline Phosphatase Total Creatine Kinase Troponin T C-Reactive Protein Total Protein Albumin Triglycerides HDL Cholesterol Miscellaneous Test Crossmatch 09/22/17 09/22/17 09/22/17 03:37 05:40 07:35 WBC 29.7 H RBC 2.71 L Hgb 8.1 L Hct 24.1 L MCV MCH MCHC RDW 19.6 H Plt Count 491 H Lymph % (Auto) [place] % (Auto) [place] # Seg Neutrophils % Seg Neuts % (Manual) 70.5 H Lymphocytes % (Manual) 12.5 L Monocytes % (Manual) 10.0 H Nucleated RBC % 2.0 H Seg Neutrophils # Seg Neutrophils # Man 20.9 H Lymphocytes # (Manual) Monocytes # (Manual) 3.0 H Eosinophils # (Manual) Basophils # (Manual) PT INR POC ABG pH ABG pH POC ABG pCO2 POC ABG pO2 ABG pO2 ABG O2 Saturation ABG Base Excess ABG Hemoglobin Oxyhemoglobin Sodium Potassium 3.0 L Chloride 95.9 L Carbon Dioxide BUN 74 H Creatinine 2.1 H Glucose 126 H POC Glucose 150 H Calcium Phosphorus 2.10 L Magnesium 1.40 L Iron TIBC Ferritin Total Bilirubin AST ALT Alkaline Phosphatase 311 H Total Creatine Kinase Troponin T C-Reactive Protein Total Protein 4.4 L Albumin 2.0 L Triglycerides HDL Cholesterol Miscellaneous Test Crossmatch 09/22/17 09/23/17 09/23/17 12:20 05:02 05:02 WBC 37.5 H RBC 2.54 L Hgb 7.3 L Hct 22.9 L MCV MCH MCHC RDW 19.4 H Plt Count 471 H Lymph % (Auto) [place] % (Auto) [place] # Seg Neutrophils % Seg Neuts % (Manual) Lymphocytes % (Manual) 8.0 L Monocytes % (Manual) Nucleated RBC % 1.0 H Seg Neutrophils # Seg Neutrophils # Man 15.0 H Lymphocytes # (Manual) Monocytes # (Manual) 1.9 H Eosinophils # (Manual) Basophils # (Manual) PT INR POC ABG pH ABG pH POC ABG pCO2 POC ABG pO2 ABG pO2 ABG O2 Saturation ABG Base Excess ABG Hemoglobin Oxyhemoglobin Sodium 136 L Potassium 3.0 L Chloride 93.8 L Carbon Dioxide BUN 99 H Creatinine 2.7 H Glucose POC Glucose 106 H Calcium 8.2 L Phosphorus 2.40 L Magnesium Iron TIBC Ferritin Total Bilirubin AST ALT Alkaline Phosphatase Total Creatine Kinase Troponin T C-Reactive Protein Total Protein Albumin Triglycerides HDL Cholesterol Miscellaneous Test Crossmatch 09/23/17 09/23/17 09/23/17 05:39 11:21 18:19 WBC RBC Hgb Hct MCV MCH MCHC RDW Plt Count Lymph % (Auto) [place] % (Auto) [place] # Seg Neutrophils % Seg Neuts % (Manual) Lymphocytes % (Manual) Monocytes % (Manual) Nucleated RBC % Seg Neutrophils # Seg Neutrophils # Man Lymphocytes # (Manual) Monocytes # (Manual) Eosinophils # (Manual) Basophils # (Manual) PT INR POC ABG pH ABG pH POC ABG pCO2 POC ABG pO2 ABG pO2 ABG O2 Saturation ABG Base Excess ABG Hemoglobin Oxyhemoglobin Sodium Potassium Chloride Carbon Dioxide BUN Creatinine Glucose POC Glucose 118 H 130 H 189 H Calcium Phosphorus Magnesium Iron TIBC Ferritin Total Bilirubin AST ALT Alkaline Phosphatase Total Creatine Kinase Troponin T C-Reactive Protein Total Protein Albumin Triglycerides HDL Cholesterol Miscellaneous Test Crossmatch 09/23/17 09/24/17 09/24/17 23:55 04:00 04:00 WBC 37.8 H RBC 2.76 L Hgb 8.1 L Hct 24.8 L MCV MCH MCHC RDW 19.8 H Plt Count 539 H Lymph % (Auto) [place] % (Auto) [place] # Seg Neutrophils % Seg Neuts % (Manual) Lymphocytes % (Manual) 4.0 L Monocytes % (Manual) Nucleated RBC % 6.0 H Seg Neutrophils # Seg Neutrophils # Man 19.3 H Lymphocytes # (Manual) Monocytes # (Manual) 1.5 H Eosinophils # (Manual) Basophils # (Manual) 0.4 H PT INR POC ABG pH ABG pH POC ABG pCO2 POC ABG pO2 ABG pO2 ABG O2 Saturation ABG Base Excess ABG Hemoglobin Oxyhemoglobin Sodium Potassium 3.5 L Chloride 95.2 L Carbon Dioxide BUN 67 H Creatinine 1.9 H Glucose 140 H POC Glucose 120 H Calcium 8.2 L Phosphorus 2.00 L Magnesium Iron TIBC Ferritin Total Bilirubin AST ALT Alkaline Phosphatase Total Creatine Kinase Troponin T C-Reactive Protein Total Protein Albumin Triglycerides HDL Cholesterol Miscellaneous Test Crossmatch 09/24/17 09/24/17 09/24/17 04:00 05:33 12:16 WBC RBC Hgb Hct MCV MCH MCHC RDW Plt Count Lymph % (Auto) [place] % (Auto) [place] # Seg Neutrophils % Seg Neuts % (Manual) Lymphocytes % (Manual) Monocytes % (Manual) Nucleated RBC % Seg Neutrophils # Seg Neutrophils # Man Lymphocytes # (Manual) Monocytes # (Manual) Eosinophils # (Manual) Basophils # (Manual) PT INR POC ABG pH ABG pH POC ABG pCO2 POC ABG pO2 ABG pO2 ABG O2 Saturation ABG Base Excess ABG Hemoglobin Oxyhemoglobin Sodium Potassium Chloride Carbon Dioxide BUN Creatinine Glucose POC Glucose 178 H 262 H Calcium Phosphorus Magnesium Iron TIBC Ferritin Total Bilirubin AST ALT Alkaline Phosphatase Total Creatine Kinase Troponin T C-Reactive Protein Total Protein Albumin Triglycerides HDL Cholesterol Miscellaneous Test Crossmatch See Detail 09/24/17 09/24/17 09/25/17 17:51 23:33 06:03 WBC RBC Hgb Hct MCV MCH MCHC RDW Plt Count Lymph % (Auto) [place] % (Auto) [place] # Seg Neutrophils % Seg Neuts % (Manual) Lymphocytes % (Manual) Monocytes % (Manual) Nucleated RBC % Seg Neutrophils # Seg Neutrophils # Man Lymphocytes # (Manual) Monocytes # (Manual) Eosinophils # (Manual) Basophils # (Manual) PT INR POC ABG pH ABG pH POC ABG pCO2 POC ABG pO2 ABG pO2 ABG O2 Saturation ABG Base Excess ABG Hemoglobin Oxyhemoglobin Sodium Potassium Chloride Carbon Dioxide BUN Creatinine Glucose POC Glucose 166 H 142 H 173 H Calcium Phosphorus Magnesium Iron TIBC Ferritin Total Bilirubin AST ALT Alkaline Phosphatase Total Creatine Kinase Troponin T C-Reactive Protein Total Protein Albumin Triglycerides HDL Cholesterol Miscellaneous Test Crossmatch 09/25/17 09/25/17 09/25/17 07:49 07:49 11:36 WBC 59.6 H* RBC 2.63 L Hgb 7.7 L Hct 26.0 L MCV 99 H MCH MCHC RDW 21.8 H Plt Count Lymph % (Auto) [place] % (Auto) [place] # Seg Neutrophils % Seg Neuts % (Manual) Lymphocytes % (Manual) 2.0 L Monocytes % (Manual) Nucleated RBC % 8.0 H Seg Neutrophils # Seg Neutrophils # Man 41.7 H Lymphocytes # (Manual) Monocytes # (Manual) 1.2 H Eosinophils # (Manual) Basophils # (Manual) PT INR POC ABG pH ABG pH POC ABG pCO2 POC ABG pO2 ABG pO2 ABG O2 Saturation ABG Base Excess ABG Hemoglobin Oxyhemoglobin Sodium Potassium 5.3 H D Chloride 97.7 L Carbon Dioxide 19 L BUN 90 H Creatinine 2.5 H Glucose 181 H POC Glucose 308 H Calcium 8.0 L Phosphorus Magnesium Iron TIBC Ferritin Total Bilirubin AST ALT Alkaline Phosphatase Total Creatine Kinase Troponin T C-Reactive Protein Total Protein Albumin Triglycerides HDL Cholesterol Miscellaneous Test Crossmatch 09/25/17 09/25/17 09/26/17 16:11 23:38 05:25 WBC 61.9 H* RBC 2.30 L Hgb 7.0 L Hct 21.4 L MCV MCH MCHC RDW 21.3 H Plt Count Lymph % (Auto) [place] % (Auto) [place] # Seg Neutrophils % Seg Neuts % (Manual) Lymphocytes % (Manual) 1.0 L Monocytes % (Manual) Nucleated RBC % 7.0 H Seg Neutrophils # Seg Neutrophils # Man 37.1 H Lymphocytes # (Manual) 0.6 L Monocytes # (Manual) 1.9 H Eosinophils # (Manual) Basophils # (Manual) PT INR POC ABG pH ABG pH POC ABG pCO2 POC ABG pO2 ABG pO2 ABG O2 Saturation ABG Base Excess ABG Hemoglobin Oxyhemoglobin Sodium Potassium Chloride Carbon Dioxide BUN Creatinine Glucose POC Glucose 249 H 263 H Calcium Phosphorus Magnesium Iron TIBC Ferritin Total Bilirubin AST ALT Alkaline Phosphatase Total Creatine Kinase Troponin T C-Reactive Protein Total Protein Albumin Triglycerides HDL Cholesterol Miscellaneous Test Crossmatch 09/26/17 09/26/17 09/26/17 05:25 05:32 11:33 WBC RBC Hgb Hct MCV MCH MCHC RDW Plt Count Lymph % (Auto) [place] % (Auto) [place] # Seg Neutrophils % Seg Neuts % (Manual) Lymphocytes % (Manual) Monocytes % (Manual) Nucleated RBC % Seg Neutrophils # Seg Neutrophils # Man Lymphocytes # (Manual) Monocytes # (Manual) Eosinophils # (Manual) Basophils # (Manual) PT INR POC ABG pH ABG pH POC ABG pCO2 POC ABG pO2 ABG pO2 ABG O2 Saturation ABG Base Excess ABG Hemoglobin Oxyhemoglobin Sodium Potassium Chloride Carbon Dioxide 21 L BUN 81 H Creatinine 2.3 H Glucose 178 H POC Glucose 225 H 246 H Calcium 8.1 L Phosphorus Magnesium Iron TIBC Ferritin Total Bilirubin AST ALT Alkaline Phosphatase Total Creatine Kinase Troponin T C-Reactive Protein Total Protein Albumin Triglycerides HDL Cholesterol Miscellaneous Test Crossmatch 09/26/17 09/27/17 09/27/17 17:43 00:11 04:00 WBC 63.0 H* RBC 2.23 L Hgb 6.3 L Hct 20.6 L MCV MCH MCHC RDW 20.6 H Plt Count Lymph % (Auto) [place] % (Auto) [place] # Seg Neutrophils % Seg Neuts % (Manual) Lymphocytes % (Manual) 3.0 L Monocytes % (Manual) Nucleated RBC % 6.0 H Seg Neutrophils # Seg Neutrophils # Man 40.3 H Lymphocytes # (Manual) Monocytes # (Manual) 4.4 H Eosinophils # (Manual) Basophils # (Manual) PT INR POC ABG pH ABG pH POC ABG pCO2 POC ABG pO2 ABG pO2 ABG O2 Saturation ABG Base Excess ABG Hemoglobin Oxyhemoglobin Sodium Potassium Chloride Carbon Dioxide BUN Creatinine Glucose POC Glucose 180 H 194 H Calcium Phosphorus Magnesium Iron TIBC Ferritin Total Bilirubin AST ALT Alkaline Phosphatase Total Creatine Kinase Troponin T C-Reactive Protein Total Protein Albumin Triglycerides HDL Cholesterol Miscellaneous Test Crossmatch 09/27/17 09/27/17 09/27/17 04:00 04:00 05:11 WBC RBC Hgb Hct MCV MCH MCHC RDW Plt Count Lymph % (Auto) [place] % (Auto) [place] # Seg Neutrophils % Seg Neuts % (Manual) Lymphocytes % (Manual) Monocytes % (Manual) Nucleated RBC % Seg Neutrophils # Seg Neutrophils # Man Lymphocytes # (Manual) Monocytes # (Manual) Eosinophils # (Manual) Basophils # (Manual) PT INR POC ABG pH ABG pH POC ABG pCO2 POC ABG pO2 ABG pO2 ABG O2 Saturation ABG Base Excess ABG Hemoglobin Oxyhemoglobin Sodium Potassium Chloride Carbon Dioxide 19 L BUN 102 H Creatinine 2.8 H Glucose 141 H POC Glucose 189 H Calcium 8.1 L Phosphorus Magnesium 2.40 H Iron TIBC Ferritin Total Bilirubin AST ALT Alkaline Phosphatase Total Creatine Kinase Troponin T C-Reactive Protein Total Protein Albumin Triglycerides HDL Cholesterol Miscellaneous Test Crossmatch 09/27/17 09/27/17 09/27/17 08:58 11:54 17:20 WBC RBC Hgb Hct MCV MCH MCHC RDW Plt Count Lymph % (Auto) [place] % (Auto) [place] # Seg Neutrophils % Seg Neuts % (Manual) Lymphocytes % (Manual) Monocytes % (Manual) Nucleated RBC % Seg Neutrophils # Seg Neutrophils # Man Lymphocytes # (Manual) Monocytes # (Manual) Eosinophils # (Manual) Basophils # (Manual) PT INR POC ABG pH ABG pH POC ABG pCO2 POC ABG pO2 ABG pO2 ABG O2 Saturation ABG Base Excess ABG Hemoglobin Oxyhemoglobin Sodium Potassium Chloride Carbon Dioxide BUN Creatinine Glucose POC Glucose 196 H 199 H Calcium Phosphorus Magnesium Iron TIBC Ferritin Total Bilirubin AST ALT Alkaline Phosphatase Total Creatine Kinase Troponin T C-Reactive Protein Total Protein Albumin Triglycerides HDL Cholesterol Miscellaneous Test Crossmatch See Detail 09/28/17 09/28/17 09/28/17 00:11 05:23 12:07 WBC RBC Hgb Hct MCV MCH MCHC RDW Plt Count Lymph % (Auto) [place] % (Auto) [place] # Seg Neutrophils % Seg Neuts % (Manual) Lymphocytes % (Manual) Monocytes % (Manual) Nucleated RBC % Seg Neutrophils # Seg Neutrophils # Man Lymphocytes # (Manual) Monocytes # (Manual) Eosinophils # (Manual) Basophils # (Manual) PT INR POC ABG pH ABG pH POC ABG pCO2 POC ABG pO2 ABG pO2 ABG O2 Saturation ABG Base Excess ABG Hemoglobin Oxyhemoglobin Sodium Potassium Chloride Carbon Dioxide BUN Creatinine Glucose POC Glucose 155 H 237 H 218 H Calcium Phosphorus Magnesium Iron TIBC Ferritin Total Bilirubin AST ALT Alkaline Phosphatase Total Creatine Kinase Troponin T C-Reactive Protein Total Protein Albumin Triglycerides HDL Cholesterol Miscellaneous Test Crossmatch 09/28/17 09/28/17 09/28/17 17:58 Unknown Unknown WBC 39.0 H RBC 3.10 L Hgb 9.6 L D Hct 27.6 L D MCV MCH MCHC 35 H RDW 17.1 H Plt Count Lymph % (Auto) [place] % (Auto) [place] # Seg Neutrophils % Seg Neuts % (Manual) 80.5 H Lymphocytes % (Manual) 0.5 L Monocytes % (Manual) Nucleated RBC % Seg Neutrophils # Seg Neutrophils # Man 31.4 H Lymphocytes # (Manual) 0.2 L Monocytes # (Manual) 2.5 H Eosinophils # (Manual) Basophils # (Manual) PT INR POC ABG pH ABG pH POC ABG pCO2 POC ABG pO2 ABG pO2 ABG O2 Saturation ABG Base Excess ABG Hemoglobin Oxyhemoglobin Sodium Potassium 3.4 L D Chloride Carbon Dioxide BUN 72 H Creatinine 2.0 H Glucose 194 H POC Glucose 108 H Calcium 7.4 L Phosphorus Magnesium Iron TIBC Ferritin Total Bilirubin AST ALT Alkaline Phosphatase Total Creatine Kinase Troponin T C-Reactive Protein Total Protein Albumin Triglycerides HDL Cholesterol Miscellaneous Test Crossmatch 09/29/17 09/29/17 09/29/17 00:12 06:00 06:00 WBC 28.0 H RBC 2.92 L Hgb 8.7 L Hct 26.5 L MCV MCH MCHC RDW 17.1 H Plt Count Lymph % (Auto) [place] % (Auto) [place] # Seg Neutrophils % Seg Neuts % (Manual) 74.5 H Lymphocytes % (Manual) 5.5 L Monocytes % (Manual) 10.5 H Nucleated RBC % Seg Neutrophils # Seg Neutrophils # Man 20.9 H Lymphocytes # (Manual) Monocytes # (Manual) 2.9 H Eosinophils # (Manual) Basophils # (Manual) PT INR POC ABG pH ABG pH POC ABG pCO2 POC ABG pO2 ABG pO2 ABG O2 Saturation ABG Base Excess ABG Hemoglobin Oxyhemoglobin Sodium Potassium Chloride 97.9 L Carbon Dioxide BUN 101 H Creatinine 2.5 H Glucose 177 H POC Glucose 117 H Calcium 7.6 L Phosphorus Magnesium Iron TIBC Ferritin Total Bilirubin AST ALT Alkaline Phosphatase Total Creatine Kinase Troponin T C-Reactive Protein Total Protein Albumin Triglycerides HDL Cholesterol Miscellaneous Test Crossmatch 09/29/17 09/29/17 09/29/17 06:27 11:50 17:27 WBC RBC Hgb Hct MCV MCH MCHC RDW Plt Count Lymph % (Auto) [place] % (Auto) [place] # Seg Neutrophils % Seg Neuts % (Manual) Lymphocytes % (Manual) Monocytes % (Manual) Nucleated RBC % Seg Neutrophils # Seg Neutrophils # Man Lymphocytes # (Manual) Monocytes # (Manual) Eosinophils # (Manual) Basophils # (Manual) PT INR POC ABG pH ABG pH POC ABG pCO2 POC ABG pO2 ABG pO2 ABG O2 Saturation ABG Base Excess ABG Hemoglobin Oxyhemoglobin Sodium Potassium Chloride Carbon Dioxide BUN Creatinine Glucose POC Glucose 183 H 209 H 150 H Calcium Phosphorus Magnesium Iron TIBC Ferritin Total Bilirubin AST ALT Alkaline Phosphatase Total Creatine Kinase Troponin T C-Reactive Protein Total Protein Albumin Triglycerides HDL Cholesterol Miscellaneous Test Crossmatch 09/30/17 09/30/17 09/30/17 05:20 05:20 05:31 WBC 23.0 H RBC 2.64 L Hgb 7.9 L Hct 23.9 L MCV MCH MCHC RDW 18.1 H Plt Count Lymph % (Auto) [place] % (Auto) [place] # Seg Neutrophils % Seg Neuts % (Manual) 29.0 L Lymphocytes % (Manual) Monocytes % (Manual) 11.0 H Nucleated RBC % Seg Neutrophils # Seg Neutrophils # Man Lymphocytes # (Manual) Monocytes # (Manual) 2.5 H Eosinophils # (Manual) Basophils # (Manual) PT INR POC ABG pH ABG pH POC ABG pCO2 POC ABG pO2 ABG pO2 ABG O2 Saturation ABG Base Excess ABG Hemoglobin Oxyhemoglobin Sodium Potassium Chloride 97.0 L Carbon Dioxide 20 L BUN 120 H Creatinine 2.9 H Glucose 126 H POC Glucose 143 H Calcium 8.2 L Phosphorus Magnesium Iron TIBC Ferritin Total Bilirubin AST ALT Alkaline Phosphatase Total Creatine Kinase Troponin T C-Reactive Protein Total Protein Albumin Triglycerides HDL Cholesterol Miscellaneous Test Crossmatch 09/30/17 09/30/17 10/01/17 11:24 23:40 05:45 WBC RBC Hgb Hct MCV MCH MCHC RDW Plt Count Lymph % (Auto) [place] % (Auto) [place] # Seg Neutrophils % Seg Neuts % (Manual) Lymphocytes % (Manual) Monocytes % (Manual) Nucleated RBC % Seg Neutrophils # Seg Neutrophils # Man Lymphocytes # (Manual) Monocytes # (Manual) Eosinophils # (Manual) Basophils # (Manual) PT INR POC ABG pH ABG pH POC ABG pCO2 POC ABG pO2 ABG pO2 ABG O2 Saturation ABG Base Excess ABG Hemoglobin Oxyhemoglobin Sodium Potassium Chloride Carbon Dioxide BUN 83 H Creatinine 2.2 H Glucose 140 H POC Glucose 197 H 121 H Calcium Phosphorus 2.40 L D Magnesium Iron TIBC Ferritin Total Bilirubin AST ALT Alkaline Phosphatase Total Creatine Kinase Troponin T C-Reactive Protein Total Protein Albumin Triglycerides HDL Cholesterol Miscellaneous Test Crossmatch 10/01/17 10/01/17 10/01/17 05:45 05:48 12:29 WBC 23.0 H RBC 2.60 L Hgb 7.8 L Hct 23.8 L MCV MCH MCHC RDW 17.5 H Plt Count Lymph % (Auto) [place] % (Auto) [place] # Seg Neutrophils % Seg Neuts % (Manual) 81.0 H Lymphocytes % (Manual) 2.0 L Monocytes % (Manual) 10.0 H Nucleated RBC % Seg Neutrophils # Seg Neutrophils # Man 18.6 H Lymphocytes # (Manual) 0.5 L Monocytes # (Manual) 2.3 H Eosinophils # (Manual) Basophils # (Manual) PT INR POC ABG pH ABG pH POC ABG pCO2 POC ABG pO2 ABG pO2 ABG O2 Saturation ABG Base Excess ABG Hemoglobin Oxyhemoglobin Sodium Potassium Chloride Carbon Dioxide BUN Creatinine Glucose POC Glucose 123 H 191 H Calcium Phosphorus Magnesium Iron TIBC Ferritin Total Bilirubin AST ALT Alkaline Phosphatase Total Creatine Kinase Troponin T C-Reactive Protein Total Protein Albumin Triglycerides HDL Cholesterol Miscellaneous Test Crossmatch 10/01/17 10/02/17 10/02/17 17:46 05:00 05:27 WBC RBC Hgb Hct MCV MCH MCHC RDW Plt Count Lymph % (Auto) [place] % (Auto) [place] # Seg Neutrophils % Seg Neuts % (Manual) Lymphocytes % (Manual) Monocytes % (Manual) Nucleated RBC % Seg Neutrophils # Seg Neutrophils # Man Lymphocytes # (Manual) Monocytes # (Manual) Eosinophils # (Manual) Basophils # (Manual) PT INR POC ABG pH ABG pH POC ABG pCO2 POC ABG pO2 ABG pO2 ABG O2 Saturation ABG Base Excess ABG Hemoglobin Oxyhemoglobin Sodium Potassium Chloride Carbon Dioxide BUN 108 H Creatinine 2.5 H Glucose 113 H POC Glucose 56 L 120 H Calcium Phosphorus Magnesium Iron TIBC Ferritin Total Bilirubin AST ALT Alkaline Phosphatase Total Creatine Kinase Troponin T C-Reactive Protein Total Protein Albumin Triglycerides HDL Cholesterol Miscellaneous Test Crossmatch 10/02/17 10/02/17 10/02/17 10:05 11:57 19:14 WBC 18.1 H RBC 2.67 L Hgb 8.0 L Hct 24.1 L MCV MCH MCHC RDW 17.1 H Plt Count Lymph % (Auto) [place] % (Auto) [place] # Seg Neutrophils % Seg Neuts % (Manual) Lymphocytes % (Manual) 5.0 L Monocytes % (Manual) 17.0 H Nucleated RBC % Seg Neutrophils # Seg Neutrophils # Man 12.5 H Lymphocytes # (Manual) 0.9 L Monocytes # (Manual) 3.1 H Eosinophils # (Manual) Basophils # (Manual) PT INR POC ABG pH ABG pH POC ABG pCO2 POC ABG pO2 ABG pO2 ABG O2 Saturation ABG Base Excess ABG Hemoglobin Oxyhemoglobin Sodium Potassium Chloride Carbon Dioxide BUN Creatinine Glucose POC Glucose 162 H 189 H Calcium Phosphorus Magnesium Iron TIBC Ferritin Total Bilirubin AST ALT Alkaline Phosphatase Total Creatine Kinase Troponin T C-Reactive Protein Total Protein Albumin Triglycerides HDL Cholesterol Miscellaneous Test Crossmatch 10/02/17 10/03/17 10/03/17 23:50 04:00 06:14 WBC 16.2 H RBC 2.76 L Hgb 8.0 L Hct 24.9 L MCV MCH MCHC RDW 17.1 H Plt Count Lymph % (Auto) [place] % (Auto) [place] # Seg Neutrophils % Seg Neuts % (Manual) 71.0 H Lymphocytes % (Manual) 9.0 L Monocytes % (Manual) 17.0 H Nucleated RBC % Seg Neutrophils # Seg Neutrophils # Man 11.5 H Lymphocytes # (Manual) Monocytes # (Manual) 2.8 H Eosinophils # (Manual) Basophils # (Manual) PT INR POC ABG pH ABG pH POC ABG pCO2 POC ABG pO2 ABG pO2 ABG O2 Saturation ABG Base Excess ABG Hemoglobin Oxyhemoglobin Sodium Potassium Chloride Carbon Dioxide BUN Creatinine Glucose POC Glucose 159 H 162 H Calcium Phosphorus Magnesium Iron TIBC Ferritin Total Bilirubin AST ALT Alkaline Phosphatase Total Creatine Kinase Troponin T C-Reactive Protein Total Protein Albumin Triglycerides HDL Cholesterol Miscellaneous Test Crossmatch 10/03/17 10/03/17 10/03/17 10:05 12:03 17:10 WBC RBC Hgb Hct MCV MCH MCHC RDW Plt Count Lymph % (Auto) [place] % (Auto) [place] # Seg Neutrophils % Seg Neuts % (Manual) Lymphocytes % (Manual) Monocytes % (Manual) Nucleated RBC % Seg Neutrophils # Seg Neutrophils # Man Lymphocytes # (Manual) Monocytes # (Manual) Eosinophils # (Manual) Basophils # (Manual) PT INR POC ABG pH ABG pH POC ABG pCO2 POC ABG pO2 ABG pO2 ABG O2 Saturation ABG Base Excess ABG Hemoglobin Oxyhemoglobin Sodium Potassium Chloride Carbon Dioxide BUN Creatinine Glucose POC Glucose 148 H 168 H 42 L Calcium Phosphorus Magnesium Iron TIBC Ferritin Total Bilirubin AST ALT Alkaline Phosphatase Total Creatine Kinase Troponin T C-Reactive Protein Total Protein Albumin Triglycerides HDL Cholesterol Miscellaneous Test Crossmatch 10/03/17 10/04/17 10/04/17 23:35 00:40 04:47 WBC RBC Hgb Hct MCV MCH MCHC RDW Plt Count Lymph % (Auto) [place] % (Auto) [place] # Seg Neutrophils % Seg Neuts % (Manual) Lymphocytes % (Manual) Monocytes % (Manual) Nucleated RBC % Seg Neutrophils # Seg Neutrophils # Man Lymphocytes # (Manual) Monocytes # (Manual) Eosinophils # (Manual) Basophils # (Manual) PT INR POC ABG pH ABG pH POC ABG pCO2 POC ABG pO2 ABG pO2 ABG O2 Saturation ABG Base Excess ABG Hemoglobin Oxyhemoglobin Sodium Potassium Chloride 96.3 L Carbon Dioxide BUN 92 H Creatinine 2.4 H Glucose 111 H POC Glucose 50 L 113 H Calcium 8.3 L Phosphorus Magnesium 1.50 L Iron TIBC Ferritin Total Bilirubin AST ALT Alkaline Phosphatase Total Creatine Kinase Troponin T C-Reactive Protein Total Protein Albumin Triglycerides HDL Cholesterol Miscellaneous Test Crossmatch 10/04/17 10/04/17 04:47 05:19 WBC 18.9 H RBC 2.58 L Hgb 7.8 L Hct 23.1 L MCV MCH MCHC RDW 17.2 H Plt Count Lymph % (Auto) [place] % (Auto) [place] # Seg Neutrophils % Seg Neuts % (Manual) Lymphocytes % (Manual) 11.0 L Monocytes % (Manual) 22.0 H Nucleated RBC % Seg Neutrophils # Seg Neutrophils # Man 10.4 H Lymphocytes # (Manual) Monocytes # (Manual) 4.2 H Eosinophils # (Manual) Basophils # (Manual) PT INR POC ABG pH ABG pH POC ABG pCO2 POC ABG pO2 ABG pO2 ABG O2 Saturation ABG Base Excess ABG Hemoglobin Oxyhemoglobin Sodium Potassium Chloride Carbon Dioxide BUN Creatinine Glucose POC Glucose 109 H Calcium Phosphorus Magnesium Iron TIBC Ferritin Total Bilirubin AST ALT Alkaline Phosphatase Total Creatine Kinase Troponin T C-Reactive Protein Total Protein Albumin Triglycerides HDL Cholesterol Miscellaneous Test Crossmatch
--- NOTE | 2017-10-04 09:47 | Progress Note ---
Assessment and Plan Assessment: 1) Sepsis with septic shock: worsening. New fever etiology-Candidemia 2) Initial Bowel obstruction / suspect ?gastric perforation ? peritonitis -S/P Exlap, G-tube placement, EGD, abdominal washout and removal of PD -OR findings - bowel obstruction due to entanglement of PD cath, abscess cavity in LUQ and ? suspect perforation of unclear location 3) Intiial CA-UTI: chronic ivan exchanged every 4 weeks and ureteral stents in place which are exchanged every 6 months 4) Paraplegia 5) ESRD on PD - now on HD 6) Recent pancreatitis 7) Penicillin allergy-has taken keflex w/o problems 8) Presumed Surgical wound infection / dehiscence ? 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 11) Anemia- severe- Hg 6.7 today 12) Colonic perforation -S/P exlap, transverse colectomy, right sided colostomy and wash out on 09/15 -?presumed leak -surgical wound + Kristine and MDR Acinetobacter 13) Small bowell enterotomy leak / peritonitis s/p wash out / biologic mesh placement / closure of small bowel enterotomy on 09/24 14) Candidemia on 09/30 -Nair and HD removed 10/03, new left IJ placed Plan: -continue micafungin -repeat blood cultures today -obtain TTE r/o endocarditis -monitor fever -contact isolation I am covering the weekend Thank you Dr Frances for your consultation, will follow up with you. Ramya Lang MD Infectious Diseases Specialist [facility] ([facility] M [phone] O [phone] Subjective Date of service: 10/04/17 Principal diagnosis: respiratory failure, sepsis, shock rectal bleeding Interval history: Pt remains on the vent on levophed at 5 mcg, on TPN, fentanyl, continues with fever at 101.9. 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 Current Antimicrobials: micafungin 10/02 Previous Antimicrobials: 08/10 levaquin 08/16 vancomycin 08/13 meropenem 08/16 fluconazole Micafungin 08/29 meropenem 08/29 zyvox 09/03 fluconazole 09/03 dapto 09/10 meropenem 09/09-09/22 micafungin 09/11-09/21meropenem 09/25 fluconazole 09/24 Objective - Constitutional Vitals: Vital Signs Temp Pulse Resp BP Pulse Ox 100.5 F H 112 H 40 H 109/49 98 10/04/17 04:00 10/04/17 08:16 10/04/17 08:16 10/04/17 08:16 10/04/17 08:18 Temperature -Last 24 Hours Temperature 100.5 F Temperature 101.9 F Temperature 98.9 F Temperature 101.9 F Temperature 98.9 F Temperature 99.3 F Temperature 99.8 F - Labs CBC & Chem 7: 10/04/17 04:47 10/04/17 04:47 Labs: Abnormal lab results 10/03/17 10/03/17 10/03/17 Range/Units 10:05 12:03 17:10 WBC (4.5-11.0) K/mm3 RBC (3.65-5.03) M/mm3 Hgb (10.1-14.3) gm/dl Hct (30.3-42.9) % RDW (13.2-15.2) % Lymphocytes % (Manual) (13.4-35.0) % Monocytes % (Manual) (0.0-7.3) % Seg Neutrophils # Man (1.8-7.7) K/mm3 Monocytes # (Manual) (0.0-0.8) K/mm3 Chloride (98-107) mmol/L BUN (7-17) mg/dL Creatinine (0.7-1.2) mg/dL Glucose (65-100) mg/dL POC Glucose 148 H 168 H 42 L (70-105) Calcium (8.4-10.2) mg/dL Magnesium (1.7-2.3) mg/dL 1110/04/17 10/04/17 Range/Units 23:35 00:40 04:47 WBC (4.5-11.0) K/mm3 RBC (3.65-5.03) M/mm3 Hgb (10.1-14.3) gm/dl Hct (30.3-42.9) % RDW (13.2-15.2) % Lymphocytes % (Manual) (13.4-35.0) % Monocytes % (Manual) (0.0-7.3) % Seg Neutrophils # Man (1.8-7.7) K/mm3 Monocytes # (Manual) (0.0-0.8) K/mm3 Chloride 96.3 L (98-107) mmol/L BUN 92 H (7-17) mg/dL Creatinine 2.4 H (0.7-1.2) mg/dL Glucose 111 H (65-100) mg/dL POC Glucose 50 L 113 H (70-105) Calcium 8.3 L (8.4-10.2) mg/dL Magnesium 1.50 L (1.7-2.3) mg/dL 10/04/17 10/04/17 Range/Units 04:47 05:19 WBC 18.9 H (4.5-11.0) K/mm3 RBC 2.58 L (3.65-5.03) M/mm3 Hgb 7.8 L (10.1-14.3) gm/dl Hct 23.1 L (30.3-42.9) % RDW 17.2 H (13.2-15.2) % Lymphocytes % (Manual) 11.0 L (13.4-35.0) % Monocytes % (Manual) 22.0 H (0.0-7.3) % Seg Neutrophils # Man 10.4 H (1.8-7.7) K/mm3 Monocytes # (Manual) 4.2 H (0.0-0.8) K/mm3 Chloride (98-107) mmol/L BUN (7-17) mg/dL Creatinine (0.7-1.2) mg/dL Glucose (65-100) mg/dL POC Glucose 109 H (70-105) Calcium (8.4-10.2) mg/dL Magnesium (1.7-2.3) mg/dL
[2017-10-04] MEDS: MYCAMINE 100 MG in NACL 0.9% 100 ML IV SCH (10:40)
[2017-10-04] MEDS: DILAUDID IV PRN ×2 (10:40→18:31)
[2017-10-04] MEDS: LEVOPHED 8 MG in NACL 0.9% 250ML 242 ML IV SCH (11:31)
--- NOTE | 2017-10-04 11:56 | Progress Note ---
Assessment and Plan 62 y.o. F s/p ex lap, repair of enterotomy, then s/p ex lap, transverse colon resection, colostomy creation, and s/p ex lap, abdominal wash out and abdominal wall closure after wound dehiscence 3 weeks s/p ex lap for gastric perforation and sbo. complicated patient with hx of several abdominal procedures this admission, starting with surgery for SBO and gastric perforation. Most recently, s/p exlap and repair of enterotomy and midline closure with biologic mesh due to dehiscence -G tube study to eval if leak: per g tube study- contrast remains in stomach. Methylene blue irrigated in G tube then clamped. no apparent blue noted in midline or MERVIN drains. No blue in the MERVIN drains in the am or at midline. G tube now to gravity No leak noted. May restart tube feeds at 10cc. - due to increased drainage from midline and at JPs- will obtain ct abd/pelvis with IV contrast in am prior to HD to eval for possible abscess that would benefit from IR drainage. leukocytosis- abx per ID: line holiday scheduled +cultures- yeast. micafungin Nurtrition: TPN for nutritional support. /restart tube feeds at 10cc/hr wound care: -wound vac not possible due to retention suture- will continue daily to BID dressing changes. Once retention sutures removed, possible wound vac. -santyl to border of wound at site of fat necrosis. -Monitor ostomy site - mucocutaneous seperation occuring medial portion of ostomy. Wound care aware and will monitor Renal : HD per renal DVT proph: scds GI: PPI. - Patient Problems (1) Peritonitis (acute) generalized Current Visit: Yes Status: Acute Subjective Narrative: No acute events overnight. Levo at 6-8. Antonieta in place. Methyline blue test via G tube yesterday then G tube clamped. No blue in MERVIN upper or lower or at midline noted overnight or this am. Pt awake and responds to pain. Does not follow commands. Mervin upper: 15cc/24hrs cream/coleman fluid no blue Mervin lower: 295cc/24 hrs. cream/coleman fluid. NO blue Objective Vital Signs - 12hr 10/04/17 10/04/17 10/04/17 00:00 00:03 00:16 Temperature 101.9 F H Pulse Rate 119 H 111 H Pulse Rate [ 108 H Right] Respiratory 25 H 23 Rate Blood Pressure 138/63 126/54 O2 Sat by Pulse 96 98 Oximetry O2 Sat by Pulse 99 Oximetry [ Assessment] 10/04/17 10/04/17 10/04/17 00:30 00:46 01:00 Temperature Pulse Rate 120 H 111 H 108 H Pulse Rate [ Right] Respiratory 24 21 24 Rate Blood Pressure 126/54 126/54 115/54 O2 Sat by Pulse 98 99 98 Oximetry O2 Sat by Pulse Oximetry [ Assessment] 10/04/17 10/04/17 10/04/17 01:16 01:30 01:46 Temperature Pulse Rate 114 H 114 H 110 H Pulse Rate [ Right] Respiratory 24 26 H 26 H Rate Blood Pressure 115/54 115/54 115/54 O2 Sat by Pulse 99 99 99 Oximetry O2 Sat by Pulse Oximetry [ Assessment] 10/04/17 10/04/17 10/04/17 02:00 02:16 02:30 Temperature Pulse Rate 110 H 114 H 111 H Pulse Rate [ Right] Respiratory 25 H 20 23 Rate Blood Pressure 109/60 109/60 109/60 O2 Sat by Pulse 99 98 99 Oximetry O2 Sat by Pulse Oximetry [ Assessment] 10/04/17 10/04/17 10/04/17 02:46 03:00 03:16 Temperature Pulse Rate 107 H 109 H 107 H Pulse Rate [ Right] Respiratory 25 H 26 H 26 H Rate Blood Pressure 109/60 116/56 116/56 O2 Sat by Pulse 100 98 100 Oximetry O2 Sat by Pulse Oximetry [ Assessment] 10/04/17 10/04/17 10/04/17 03:30 03:46 03:52 Temperature Pulse Rate 99 H 92 H 108 H Pulse Rate [ Right] Respiratory 21 19 Rate Blood Pressure 116/56 116/56 116/56 O2 Sat by Pulse 100 100 10 L Oximetry O2 Sat by Pulse Oximetry [ Assessment] 10/04/17 10/04/17 10/04/17 04:00 04:16 04:30 Temperature 100.5 F H Pulse Rate 107 H 107 H 95 H Pulse Rate [ Right] Respiratory 21 25 H 20 Rate Blood Pressure 114/51 114/51 114/51 O2 Sat by Pulse 100 100 100 Oximetry O2 Sat by Pulse Oximetry [ Assessment] 10/04/17 10/04/17 10/04/17 04:46 05:00 05:16 Temperature Pulse Rate 96 H 107 H 109 H Pulse Rate [ Right] Respiratory 21 25 H 27 H Rate Blood Pressure 114/51 114/55 114/55 O2 Sat by Pulse 100 99 99 Oximetry O2 Sat by Pulse Oximetry [ Assessment] 10/04/17 10/04/17 10/04/17 05:30 05:46 06:00 Temperature Pulse Rate 110 H 93 H 106 H Pulse Rate [ Right] Respiratory 30 H 22 24 Rate Blood Pressure 114/55 114/55 117/47 O2 Sat by Pulse 100 100 99 Oximetry O2 Sat by Pulse Oximetry [ Assessment] 10/04/17 10/04/17 10/04/17 06:16 06:30 06:46 Temperature Pulse Rate 98 H 99 H 112 H Pulse Rate [ Right] Respiratory 24 23 30 H Rate Blood Pressure 117/47 117/47 117/47 O2 Sat by Pulse 99 99 99 Oximetry O2 Sat by Pulse Oximetry [ Assessment] 10/04/17 10/04/17 10/04/17 07:00 07:16 07:30 Temperature Pulse Rate 106 H 114 H 112 H Pulse Rate [ Right] Respiratory 35 H 36 H 42 H Rate Blood Pressure 115/53 115/53 115/53 O2 Sat by Pulse 98 98 99 Oximetry O2 Sat by Pulse Oximetry [ Assessment] 10/04/17 10/04/17 10/04/17 07:46 08:00 08:02 Temperature Pulse Rate 109 H 108 H 117 H Pulse Rate [ Right] Respiratory 36 H 36 H 39 H Rate Blood Pressure 115/53 109/49 109/49 O2 Sat by Pulse 98 98 98 Oximetry O2 Sat by Pulse Oximetry [ Assessment] 10/04/17 10/04/17 10/04/17 08:16 08:18 11:00 Temperature Pulse Rate 112 H 110 H Pulse Rate [ Right] Respiratory 40 H 36 H Rate Blood Pressure 109/49 110/52 O2 Sat by Pulse 98 99 Oximetry O2 Sat by Pulse 98 Oximetry [ Assessment] 10/04/17 10/04/17 11:07 11:43 Temperature 99.9 F H Pulse Rate 112 H Pulse Rate [ Right] Respiratory Rate Blood Pressure 110/52 O2 Sat by Pulse 98 Oximetry O2 Sat by Pulse Oximetry [ Assessment] - General physical appearance chronically ill, obese - Respiratory normal expansion, normal respiratory effort - Abdomen soft, other (packing removed from midline: coelman /serosang discharge in inferior portion of wound. irrigated and suctioned. repacked with calcium alginate. colostomy: edges reapprox. eval with wound care: mucocutaneous seperation at medial aspect. no leaking of stool into wound. stoma is pink and patent. surrouing border with necrotic tissue. +air and liquid brown stool in bag prior to change. ) - Neurologic disoriented - Labs 10/04/17 04:47 10/04/17 04:47 Diabetes panel 10/04/17 Range/Units 04:47 Sodium 138 (137-145) mmol/L Potassium 3.8 (3.6-5.0) mmol/L Chloride 96.3 L (98-107) mmol/L Carbon Dioxide 22 (22-30) mmol/L BUN 92 H (7-17) mg/dL Creatinine 2.4 H (0.7-1.2) mg/dL Glucose 111 H (65-100) mg/dL Calcium 8.3 L (8.4-10.2) mg/dL Calcium panel 10/04/17 Range/Units 04:47 Calcium 8.3 L (8.4-10.2) mg/dL Phosphorus 3.00 (2.5-4.5) mg/dL Pituitary panel 10/04/17 Range/Units 04:47 Sodium 138 (137-145) mmol/L Potassium 3.8 (3.6-5.0) mmol/L Chloride 96.3 L (98-107) mmol/L Carbon Dioxide 22 (22-30) mmol/L BUN 92 H (7-17) mg/dL Creatinine 2.4 H (0.7-1.2) mg/dL Glucose 111 H (65-100) mg/dL Calcium 8.3 L (8.4-10.2) mg/dL Adrenal panel 10/04/17 Range/Units 04:47 Sodium 138 (137-145) mmol/L Potassium 3.8 (3.6-5.0) mmol/L Chloride 96.3 L (98-107) mmol/L Carbon Dioxide 22 (22-30) mmol/L BUN 92 H (7-17) mg/dL Creatinine 2.4 H (0.7-1.2) mg/dL Glucose 111 H (65-100) mg/dL Calcium 8.3 L (8.4-10.2) mg/dL
[2017-10-04] MEDS: LEVEMIR SUB-Q SCH (12:35)
[2017-10-04] MEDS: PROTONIX FEEDTUBE SCH (12:35)
[2017-10-04] MEDS ORDERED: NACL 0.9% 100 ML IV PRN (12:55)
[2017-10-04] MEDS ORDERED: MAGNESIUM SULFATE 1 GM in NACL 0.9% 50 ML IV ONE (14:00)
--- NOTE | 2017-10-04 18:01 | Progress Note ---
Assessment and Plan Assessment and plan: 62 yo female with abdominal abscess and peritonitis s/p surgical intervention complicated with bowel obstruction/surgical wound infection/dehiscence and multiple surgical reinterventions, with respiratory failure and refractory hypotension Acute bacterial peritonitis/intra-abdominal abscess/bowel obstruction S/p PD catheter removal and multiple exploratory laparatomy 08/17 expl lap - abscess LUQ, bowel obstruction, ?perforation of unclear location ; PDs cath removal, abd washout, G tube placement 08/31 expl lap with washout and closure 09/15 expl lap transverse colectomy, right-sided colostomy, washout 09/24 expl lap abdominal washout, placement of biological mesh, closure of small bowel enterotomy Complicated with wound infection, dehiscence Multiple antibiotic courses per ID recommendation; completed 7 day course of meropenem and fluconazole Septic shock Due to abdominal abscess and catheter associated UTI Completed antibiotics courses Still requiring Levophed and Midodrine Now with candidemia; started on micafungin Continues to be febrile and WBC trending up; cc ordered CT abdomen to r/o abscess Acute hypoxic respiratory failure Status post trach Still on vent, PSV trials Weaning per pulmonary as tolerated End-stage renal disease Previously on PD, s/p cath removal and switched to HD Nephro following and assessing HD needs Anemia Blood loss anemia + anemia of chronic disease S/p PRBCs Epogen with HD Monitor H&H Ulcerative esophagitis/small gastric ulcer S/p EGD S/p multiple transfusions On PPI CAUTI Completed antibiotics Pancreatitis Resolved Leukocytosis Slowly trending down Monitor ID following NSVT Cardiology believes that it was secondary to Levophed History of cervical surgery Wheelchair bound since then Pain control Penicillin allergy ? Has taken keflex in the past w/o problems Malnutrition TPN, started on TF, but having high residuals DVT prophylaxis SCDs History Interval history: remains on levophed, still running fever Hospitalist Physical - Constitutional Vitals: Temp Pulse Resp BP Pulse Ox 99.9 F H 112 H 39 H 122/56 97 10/04/17 12:00 10/04/17 16:00 10/04/17 16:00 10/04/17 16:00 10/04/17 16:00 General appearance: Present: mild distress, obese - EENT Eyes: Present: PERRL, EOM intact. Absent: scleral icterus, conjunctival injection - Neck Neck: Present: supple. Absent: enlarged thyroid, masses or JVD - Respiratory Respiratory effort: other (intubated) Respiratory: bilateral: diminished, rhonchi, negative: wheezing - Cardiovascular Rhythm: other (tachycardic) Heart Sounds: Present: S1 & S2. Absent: systolic murmur - Extremities Extremities: no ischemia - Abdominal General gastrointestinal: soft, tender, non-distended, other (PEG, MERVIN drain, ostomy, dressing in place) - Neurologic Neurologic: other (paraplegia) Results - Labs CBC & Chem 7: 10/04/17 04:47 10/04/17 04:47 Labs: Laboratory Last Values WBC 18.9 K/mm3 (4.5-11.0) H 10/04/17 04:47 RBC 2.58 M/mm3 (3.65-5.03) L 10/04/17 04:47 Hgb 7.8 gm/dl (10.1-14.3) L 10/04/17 04:47 Hct 23.1 % (30.3-42.9) L 10/04/17 04:47 MCV 90 fl (79-97) 10/04/17 04:47 MCH 30 pg (28-32) 10/04/17 04:47 MCHC 34 % (30-34) 10/04/17 04:47 RDW 17.2 % (13.2-15.2) H 10/04/17 04:47 Plt Count 276 K/mm3 (140-440) 10/04/17 04:47 Lymph % (Auto) Ammonia Box Tender 08/19/17 07:37 [place] % (Auto) Ammonia Box Tender 10/04/17 04:47 Eos % (Auto) Ammonia Box Tender 08/19/17 07:37 Baso % (Auto) Ammonia Box Tender 08/19/17 07:37 Lymph # Ammonia Box Tender 09/26/17 05:25 [place] # Ammonia Box Tender 08/19/17 07:37 Eos # Ammonia Box Tender 08/19/17 07:37 Baso # Ammonia Box Tender 08/19/17 07:37 Add Manual Diff Complete 10/04/17 04:47 Total Counted 100 10/04/17 04:47 Seg Neutrophils % Ammonia Box Tender 09/08/17 04:05 Seg Neuts % (Manual) 55.0 % (40.0-70.0) 10/04/17 04:47 Band Neutrophils % 12.0 % 10/04/17 04:47 Lymphocytes % (Manual) 11.0 % (13.4-35.0) L 10/04/17 04:47 Reactive Lymphs % (Man) 0 % 10/04/17 04:47 Monocytes % (Manual) 22.0 % (0.0-7.3) H 10/04/17 04:47 Eosinophils % (Manual) 0 % (0.0-4.3) 10/04/17 04:47 Basophils % (Manual) 0 % (0.0-1.8) 10/04/17 04:47 Metamyelocytes % 0 % 10/04/17 04:47 Myelocytes % 0 % 10/04/17 04:47 Promyelocytes % 0 % 10/04/17 04:47 Blast Cells % 0 % 10/04/17 04:47 Nucleated RBC % Not Reportable 10/04/17 04:47 Seg Neutrophils # Ammonia Box Tender 08/19/17 07:37 Seg Neutrophils # Man 10.4 K/mm3 (1.8-7.7) H 10/04/17 04:47 Band Neutrophils # 2.3 K/mm3 10/04/17 04:47 Lymphocytes # (Manual) 2.1 K/mm3 (1.2-5.4) 10/04/17 04:47 Abs React Lymphs (Man) 0.0 K/mm3 10/04/17 04:47 Monocytes # (Manual) 4.2 K/mm3 (0.0-0.8) H 10/04/17 04:47 Eosinophils # (Manual) 0.0 K/mm3 (0.0-0.4) 10/04/17 04:47 Basophils # (Manual) 0.0 K/mm3 (0.0-0.1) 10/04/17 04:47 Metamyelocytes # 0.0 K/mm3 10/04/17 04:47 Myelocytes # 0.0 K/mm3 10/04/17 04:47 Promyelocytes # 0.0 K/mm3 10/04/17 04:47 Blast Cells # 0.0 K/mm3 10/04/17 04:47 Pathologist Review Not Reportable 08/30/17 05:20 WBC Morphology Not Reportable 10/04/17 04:47 Hypersegmented Neuts Not Reportable 10/04/17 04:47 Hyposegmented Neuts Not Reportable 10/04/17 04:47 Hypogranular Neuts Not Reportable 10/04/17 04:47 Smudge Cells Not Reportable 10/04/17 04:47 Toxic Granulation Not Reportable 10/04/17 04:47 Toxic Vacuolation Not Reportable 10/04/17 04:47 Dohle Bodies Not Reportable 10/04/17 04:47 Pelger-Huet Anomaly Not Reportable 10/04/17 04:47 Ariel Rods Not Reportable 10/04/17 04:47 Platelet Estimate Appears normal 10/04/17 04:47 Clumped Platelets Not Reportable 10/04/17 04:47 Plt Clumps, EDTA Not Reportable 10/04/17 04:47 Large Platelets Not Reportable 10/04/17 04:47 Giant Platelets Not Reportable 10/04/17 04:47 Platelet Satelliting Not Reportable 10/04/17 04:47 Plt Morphology Comment Not Reportable 10/04/17 04:47 RBC Morphology Not Reportable 10/04/17 04:47 Dimorphic RBCs Not Reportable 10/04/17 04:47 Polychromasia Few 10/04/17 04:47 Hypochromasia 1+ 10/04/17 04:47 Poikilocytosis Not Reportable 10/04/17 04:47 Anisocytosis 1+ 10/04/17 04:47 Microcytosis Not Reportable 10/04/17 04:47 Macrocytosis Not Reportable 10/04/17 04:47 Spherocytes Not Reportable 10/04/17 04:47 Pappenheimer Bodies Not Reportable 10/04/17 04:47 Sickle Cells Not Reportable 10/04/17 04:47 Target Cells Not Reportable 10/04/17 04:47 Tear Drop Cells Not Reportable 10/04/17 04:47 Ovalocytes Not Reportable 10/04/17 04:47 Stomatocytes Rare 09/12/17 05:25 Helmet Cells Not Reportable 10/04/17 04:47 Vera-Buchanan Bodies Not Reportable 10/04/17 04:47 Burchard Rings Not Reportable 10/04/17 04:47 Yusuf Cells Not Reportable 10/04/17 04:47 Bite Cells Not Reportable 10/04/17 04:47 Crenated Cell Not Reportable 10/04/17 04:47 Elliptocytes Not Reportable 10/04/17 04:47 Acanthocytes (Spur) Not Reportable 10/04/17 04:47 Rouleaux Not Reportable 10/04/17 04:47 Hemoglobin C Crystals Not Reportable 10/04/17 04:47 Schistocytes Not Reportable 10/04/17 04:47 Malaria parasites Not Reportable 10/04/17 04:47 Jovanni Bodies Not Reportable 10/04/17 04:47 Hem Pathologist Commnt No 10/04/17 04:47 PT 14.9 Sec. (12.2-14.9) 09/21/17 07:00 INR 1.11 (0.87-1.13) 09/21/17 07:00 APTT 28.7 Sec. (24.2-36.6) 08/31/17 18:15 POC ABG pH 7.347 (7.35-7.45) L 09/13/17 11:36 ABG pH 7.323 pH Units (7.350-7.450) L 09/09/17 Unknown POC ABG pCO2 34.3 (35-45) L 09/13/17 11:36 ABG pCO2 41.1 mm Hg 09/09/17 Unknown POC ABG pO2 134 (80-105) H 09/13/17 11:36 ABG pO2 94.1 mm Hg (80.0-90.0) H 09/09/17 Unknown POC ABG HCO3 18.8 09/13/17 11:36 ABG HCO3 20.9 mmol/L (20.0-26.0) 09/09/17 Unknown POC ABG Total CO2 20 09/13/17 11:36 POC ABG O2 Sat 99 09/13/17 11:36 ABG O2 Saturation 97.2 % (95.0-99.0) 09/09/17 Unknown ABG O2 Content 10.9 (0.0-44) 09/09/17 Unknown POC ABG Base Excess -7 09/13/17 11:36 ABG Base Excess -4.8 mmol/L (-2.0-3.0) L 09/09/17 Unknown ABG Hemoglobin 8.0 gm/dl (12.0-16.0) L 09/09/17 Unknown ABG Carboxyhemoglobin 2.0 % (0.0-5.0) 09/09/17 Unknown ABG Methemoglobin 0.3 % (0.0-1.5) 09/09/17 Unknown VBG pH 7.462 (7.320-7.420) H 08/08/17 14:52 Oxyhemoglobin 94.9 % (95.0-99.0) L 09/09/17 Unknown FiO2 30 % 09/13/17 11:36 Sodium 138 mmol/L (137-145) 10/04/17 04:47 Potassium 3.8 mmol/L (3.6-5.0) 10/04/17 04:47 Chloride 96.3 mmol/L (98-107) L 10/04/17 04:47 Carbon Dioxide 22 mmol/L (22-30) 10/04/17 04:47 Anion Gap 24 mmol/L 10/04/17 04:47 BUN 92 mg/dL (7-17) H 10/04/17 04:47 Creatinine 2.4 mg/dL (0.7-1.2) H 10/04/17 04:47 Estimated GFR 25 ml/min 10/04/17 04:47 BUN/Creatinine Ratio 38 % 10/04/17 04:47 Glucose 111 mg/dL (65-100) H 10/04/17 04:47 POC Glucose 185 (70-105) H 10/04/17 09:53 Lactic Acid 1.60 mmol/L (0.7-2.0) 08/17/17 11:20 Calcium 8.3 mg/dL (8.4-10.2) L 10/04/17 04:47 Phosphorus 3.00 mg/dL (2.5-4.5) 10/04/17 04:47 Magnesium 1.50 mg/dL (1.7-2.3) L 10/04/17 04:47 Iron 22 ug/dL (37-170) L 09/12/17 05:25 TIBC 81 mcg/dL (250-450) L 09/12/17 05:25 Ferritin > 2000.0 ng/mL (13.0-400.0) H 09/12/17 05:25 Total Bilirubin 0.70 mg/dL (0.1-1.2) 09/22/17 03:37 Direct Bilirubin 0.2 mg/dL (0-0.2) 08/08/17 14:11 Indirect Bilirubin 0.3 mg/dL 08/08/17 14:11 AST 33 units/L (5-40) 09/22/17 03:37 ALT 16 units/L (7-56) 09/22/17 03:37 Alkaline Phosphatase 311 units/L (35-129) H 09/22/17 03:37 Ammonia 25.0 umol/L (25-60) 08/08/17 14:52 Total Creatine Kinase 20 units/L (30-135) L 09/16/17 05:30 Troponin T 0.132 ng/mL (0.00-0.029) H* 08/09/17 13:25 C-Reactive Protein 2.80 mg/dL (0.00-1.30) H 09/06/17 05:30 NT-Pro-B Natriuret Pep 6156 pg/mL (0-900) H 08/08/17 14:11 Total Protein 4.4 g/dL (6.3-8.2) L 09/22/17 03:37 Albumin 2.0 g/dL (3.9-5) L 09/22/17 03:37 Albumin/Globulin Ratio 0.8 % 09/22/17 03:37 Triglycerides 180 mg/dL (2-149) H 09/03/17 04:00 Cholesterol 91 mg/dL (50-199) 08/08/17 21:23 LDL Cholesterol Direct 53 mg/dL (50-130) 08/08/17 21:23 HDL Cholesterol 26 mg/dL (40-59) L 08/08/17 21:23 Cholesterol/HDL Ratio 3.50 % 08/08/17 21:23 Amylase 45 units/L (27-131) 08/16/17 09:50 Lipase 34 units/L (13-60) 08/16/17 09:50 TSH 6.580 mlU/mL (0.270-4.200) H 08/08/17 14:22 Free T4 1.46 ng/dL (0.76-1.46) 08/08/17 14:22 Total Cortisol 28.3 mcg/dL () 09/13/17 12:50 Urine Color Yellow (Yellow) 08/08/17 20:15 Urine Turbidity Turbid (Clear) 08/08/17 20:15 Urine pH 8.0 (5.0-7.0) H 08/08/17 20:15 Ur Specific Hawi 1.015 (1.003-1.030) 08/08/17 20:15 Urine Protein 100 mg/dl mg/dL (Negative) 08/08/17 20:15 Urine Glucose (UA) Neg mg/dL (Negative) 08/08/17 20:15 Urine Ketones Neg mg/dL (Negative) 08/08/17 20:15 Urine Blood Mod (Negative) 08/08/17 20:15 Urine Nitrite Neg (Negative) 08/08/17 20:15 Urine Bilirubin Neg (Negative) 08/08/17 20:15 Urine Urobilinogen < 2.0 mg/dL (<2.0) 08/08/17 20:15 Ur Leukocyte Esterase Lg (Negative) 08/08/17 20:15 Urine WBC (Auto) 24.0 /HPF (0.0-6.0) H 08/08/17 20:15 Urine RBC (Auto) 3.0 /HPF (0.0-6.0) 08/08/17 20:15 U Epithel Cells (Auto) 3.0 /HPF (0-13.0) 08/08/17 20:15 Urine Bacteria (Auto) 4+ /HPF (Negative) 08/08/17 20:15 Urine Mucus 3+ /HPF 08/08/17 20:15 Fluid Type Peritoneal 08/08/17 18:18 Fluid Color Straw 08/08/17 18:18 Fluid Appearance Clear 08/08/17 18:18 Fluid pH 7.74 08/08/17 18:18 Fluid WBC 4 /mm3 08/08/17 18:18 Fluid RBC 1 /mm3 08/08/17 18:18 Fluid Seg Neutrophils 12 % 08/08/17 18:18 Fluid Lymphocytes 0 % 08/08/17 18:18 Fluid Reactive Lymphs 0 % 08/08/17 18:18 Fluid Monocytes 1 % 08/08/17 18:18 Fluid Eosinophils 0 % 08/08/17 18:18 Fluid Basophils 0 % 08/08/17 18:18 Fluid Glucose 315 mg/dL (40-70) H 08/08/17 18:18 Random Vancomycin 19.5 ug/mL (0-40.0) 08/22/17 03:40 Hep Bs Antigen Non-reactive (Negative) 08/22/17 03:40 Hepatitis C Antibody Non-reactive (NonReactive) 08/22/17 03:40 Miscellaneous Test Flexitest 1 H 09/06/17 09:57 Blood Type O POSITIVE 09/27/17 08:58 Antibody Screen Negative 09/27/17 08:58 VAN Antibody Screen Negative 09/07/17 17:07 Crossmatch See Detail 09/27/17 08:58
[2017-10-04] MEDS ORDERED: TPN ADULT 1,800 ML IV SCH (20:00)
[2017-10-04] MEDS ORDERED: INTRALIPID 20% 250 ML IV SCH (20:00)
--- NOTE | 2017-10-04 21:42 | Progress Note ---
Assessment and Plan - Patient Problems (1) Leukocytosis Current Visit: Yes Status: Acute Qualifiers: Leukocytosis type: L Plan to address problem: See notes above. make sure that PD access is clean also. see notes. Probably infection from the infected PD catheter. improving. back up again. up/down continue to monitor. it continuos to rise. still high. improved. Back up. Now improving again. still in the same range as yesterday.. worse today. 37,000 59,000 61.9 63,000. 39,000 today. 28,000. 23,000 Down to 18,000 16,000. 18.9000 (2) Anemia Current Visit: Yes Status: Acute Qualifiers: Anemia type: A Iron deficiency anemia type: I Vitamin B12 deficiency anemia type: V Folate deficiency anemia type: F Bone marrow failure anemia type: B Hemolytic anemia type: H Other causes of anemia: O Chronic kidney disease stage: C Plan to address problem: see notes , monitor labs,. see notes above. continue to monitor labs with you. blood transfusion. S/P replacement transfusion. fair. s/p 1unit transfusion. see notes. Still at 7.4 6.9, scheduled for replacement. Fairly stable at this time. continue to monitor. If less, or equal to 7.0, will need replacement transfusion, with HD. Fair at this time. 7.7 today 7.0, needs blood with next HD. 6.3, and transfused. better post transfusion. stable. (3) Acute respiratory failure Current Visit: Yes Status: Acute Qualifiers: Respiratory failure complication: R Plan to address problem: follow pulm. Subjective Date of service: 10/04/17 Principal diagnosis: respiratory failure, sepsis, shock rectal bleeding Interval history: Patient seen today/examined, labs reviewed, case d/w she, and family.complaints of abdominal pain. Patient resting in bed in the ICU, post vascular procedure. labs reviewed, Reactive thrombocytosis, anemia of CD, leukocytosis from infection vs inflamatory process. Patient seen/examined, in bed in the ICU, on the vent post surgery.Labs reviewed , notes reviewed. will continue to monitor labs/patient with you. Replacement transfusion, if /when indicated. patient seen/examined, SBP75, on pressors., lethargic, on the vent, labs reviewed, wbc 39,000 Patient seen/examined, case reviewed, d/w her sister at the bed side. Patient seen/examined, labs reviewed, notes reviewed. severe septic shock from infected PD catheter The high wbc is all infection related. H?H low, and may get replacement transfusion with the next HD. Prognosis remain quite poor. Patient seen/examined, extubated, now on V Mask. labs reviewed. patient seen/examined, resting in bed, still some what lethargic . labs reviewed. Patient seen/examined, resting in bed., some difficulty with breathing./ lethargic. patient seen/examined, resting in bed, looked much better labs reviewed, and fair over all. Patient seen/examined, resting in bed, labs reviewed, case d/w her. Patient seen/examined, resting in bed on BIPAP., labs reviewed. patient seen/examined, resting in bed, on Bipap.labs reviewed, fairly stable. Patient seen today, resting in bed, labs reviewed, H/H low, and transfusion already ordered. Patient seen/examined, resting in bed, transferred back to the unit, due to resp failure. She is now on venting mask. had blood replacement done. Patient seen/examined in the ICU.labs reviewed. patient intubated this am. patient resting in bed.no new issues. Patient seen/examined in the ICU, on vent,Not readily responsive. patient seen, resting in bed, no new cbc ready.will order for today. Patient seen, resting in vent, labs reviewed.notes reviewed also. patient seen/examined, resting on vent, had HD yesterday, and today., labs reviewed. Patient seen, resting in bed, labs reviewed.fairly stable labs, except the wbc. Patient seen/examined, rtesting in bed on the vent.Labs reviewed, wbc still elevated, Hgb dropped slightly. Patient seen/examined, labs reviewed, hgb 7.3, if 7.0 or less, will replace .unless otherwise indicated. Patient seen/examined, alert but lethargic.sedation drip turned down.she is s/p 1unit PRBC replacement with HD today. Patient seen/examined, labs reviewed, hgb still not quite enough at 7.5, perhaps with the next HD,can use 1-2 units. Patient seen/examined, resting in bed, trached, labs re viewed. Patient seen/examined, resting in bed, responds to name calling, SBP99, labs reviewed, Hgb 6.9, PRBC replacement ordered by primary. Patient seen/examined, in bed/trach, NGT., alert/lethargic. Patient seen/examined, resting in bed, still lethargic, labs reviewed, and still fair.Will continue to follow you. Patient seen/examined, resting in bed, labs reviewed. HD in progress.She is now getting daily HD.Labs reviewed, and still fair. Patient seen/examined, resting in bed, less lethargic/less toxic looking. labs have improved. Patient seen/examined, labs reviewed, fair, case d/w her spouse at the bed side. Patient seen/examined, resting ok in bed, alert, NAD, HD in progress.Labs reviewed, and WBC 27,000, Hgb 7.8. Patient seen/examined, resting in bed in the ICU, NAD.labs reviewed, and fair. Patient seen/examined, resting in bed, labs reviewed, WBC back up,to37,000, and Hgb down to 7.3, transfusion will be needed ,if hgb less, or equal to 7.0 Patient seen/examined, resting in bed in the ICU, alert, lethargic, labs reviewed, and fair. She remains on 5mics of levophed., Temp 100. Patient seen/examined in the ICU, alert, Labs reviewed, WBC 59,000. Patient seen/examined, resting in bed, labs reviewed, WBC up to 61.9,000, Hgb 7.0, and may benefit from PRBC replacement of 2units with HD. Patient seen/examined, resting in bed, easily awoken.Hgb low at 6.3, replaced earlier with HD today.will need repeat labs in am. Patient seen/examined today, resting in bed in the ICU, labs reviewed, WBC down again to 39,000., H/H stable, post transfusion. Patient seen/examined, labs reviewed, case d/w her spouse at the bed side. WBC down to 28,000. patient seen/examined, resting in bed, more alert today, wbc better. Patient seen/examined, resting in bed, labs reviewed, case d/w her family at the bed side in the ICU. she is alert, WBC still down at 23,000 Patient seen, resting in bed, labs reviewed, and fair, including the WBC. Patient seen/examined, resting in bed in the icu, labs reviewed, and remains stable, including the WBC. Patient seen/examined ,resting in bed, labs reviewed, and stable, WBC 18,000. Objective - Constitutional Vitals: Vital Signs - 12hr 10/04/17 10/04/17 10/04/17 09:46 10:00 10:16 Temperature Pulse Rate 112 H 111 H 111 H Respiratory 37 H 40 H 38 H Rate Blood Pressure 109/49 109/49 115/52 O2 Sat by Pulse 98 99 99 Oximetry 10/04/17 10/04/17 10/04/17 10:30 10:46 11:00 Temperature Pulse Rate 111 H 113 H 111 H Respiratory 40 H 33 H 36 H Rate Blood Pressure 115/52 115/52 110/52 O2 Sat by Pulse 99 98 97 Oximetry 10/04/17 10/04/17 10/04/17 11:07 11:16 11:30 Temperature Pulse Rate 112 H 111 H 117 H Respiratory 38 H 40 H Rate Blood Pressure 110/52 110/52 110/52 O2 Sat by Pulse 98 99 99 Oximetry 10/04/17 10/04/17 10/04/17 11:43 11:46 12:00 Temperature 99.9 F H 99.9 F H Pulse Rate 108 H 110 H Respiratory 37 H 38 H Rate Blood Pressure 110/52 107/52 O2 Sat by Pulse 99 97 Oximetry 10/04/17 10/04/17 10/04/17 12:16 12:30 12:46 Temperature Pulse Rate 108 H 109 H 109 H Respiratory 35 H 39 H 36 H Rate Blood Pressure 107/52 107/52 107/52 O2 Sat by Pulse 99 99 99 Oximetry 10/04/17 10/04/17 10/04/17 13:00 13:16 13:30 Temperature Pulse Rate 105 H 109 H 116 H Respiratory 38 H 42 H 49 H Rate Blood Pressure 112/54 112/54 112/54 O2 Sat by Pulse 98 99 99 Oximetry 10/04/17 10/04/17 10/04/17 13:46 14:00 14:16 Temperature Pulse Rate 118 H 109 H 115 H Respiratory 42 H 40 H 38 H Rate Blood Pressure 112/54 121/53 121/53 O2 Sat by Pulse 100 98 100 Oximetry 10/04/17 10/04/17 10/04/17 14:30 14:46 15:00 Temperature Pulse Rate 115 H 110 H 110 H Respiratory 41 H 34 H 37 H Rate Blood Pressure 121/53 121/53 119/60 O2 Sat by Pulse 99 100 98 Oximetry 10/04/17 10/04/17 10/04/17 15:16 15:30 15:32 Temperature Pulse Rate 110 H 110 H 111 H Respiratory 35 H 36 H 37 H Rate Blood Pressure 119/60 119/60 117/57 O2 Sat by Pulse 99 100 99 Oximetry 10/04/17 10/04/17 10/04/17 15:46 16:00 16:16 Temperature 100.5 F H Pulse Rate 109 H 112 H 113 H Respiratory 36 H 39 H 40 H Rate Blood Pressure 119/60 122/56 122/56 O2 Sat by Pulse 99 97 98 Oximetry 10/04/17 10/04/17 10/04/17 16:30 16:46 17:00 Temperature Pulse Rate 118 H 119 H 117 H Respiratory 43 H 43 H 33 H Rate Blood Pressure 122/56 122/56 106/64 O2 Sat by Pulse 98 98 96 Oximetry 10/04/17 10/04/17 10/04/17 17:16 17:30 17:46 Temperature Pulse Rate 119 H 118 H 115 H Respiratory 41 H 44 H 45 H Rate Blood Pressure 106/64 106/64 106/64 O2 Sat by Pulse 98 98 97 Oximetry 10/04/17 10/04/17 10/04/17 18:00 18:16 18:30 Temperature Pulse Rate 117 H 119 H 121 H Respiratory 47 H 49 H 41 H Rate Blood Pressure 119/59 119/59 119/59 O2 Sat by Pulse 95 98 98 Oximetry 10/04/17 10/04/17 10/04/17 18:45 19:00 19:15 Temperature Pulse Rate 116 H 116 H 118 H Respiratory 45 H 52 H 47 H Rate Blood Pressure 119/59 131/56 O2 Sat by Pulse 97 95 98 Oximetry 10/04/17 10/04/17 10/04/17 19:16 19:30 19:31 Temperature 102.1 F H Pulse Rate 118 H 115 H Respiratory 25 H 24 Rate Blood Pressure 119/59 119/59 O2 Sat by Pulse 98 98 Oximetry 10/04/17 10/04/17 10/04/17 19:46 20:00 20:16 Temperature Pulse Rate 114 H 119 H 116 H Respiratory 24 20 26 H Rate Blood Pressure 119/59 113/51 113/51 O2 Sat by Pulse 98 98 98 Oximetry 10/04/17 20:36 Temperature Pulse Rate 112 H Respiratory Rate Blood Pressure 113/51 O2 Sat by Pulse 98 Oximetry General appearance: Present: mild distress - EENT Eyes: PERRL, EOM intact ENT: hearing intact, clear oral mucosa Ears: bilateral: normal - Neck Neck: supple, normal ROM - Respiratory Respiratory: bilateral: diminished, rhonchi - Breasts Breasts: deferred - Cardiovascular Rhythm: regular Heart Sounds: Present: S1 & S2. Absent: gallop, rub Extremities: pulses intact, No edema, normal color, Full ROM - Gastrointestinal General gastrointestinal: Present: soft, non-tender, non-distended, normal bowel sounds Rectal Exam: deferred - Genitourinary Female genitourinary: deferred - Integumentary Integumentary: clear, warm, dry - Musculoskeletal Musculoskeletal: 1, strength equal bilaterally - Neurologic Neurologic: moves all extremities - Psychiatric Psychiatric: appropriate mood/affect - Labs CBC & Chem 7: 10/04/17 04:47 10/04/17 04:47 Labs: Abnormal lab results 10/03/17 10/04/17 10/04/17 Range/Units 23:35 00:40 04:47 WBC (4.5-11.0) K/mm3 RBC (3.65-5.03) M/mm3 Hgb (10.1-14.3) gm/dl Hct (30.3-42.9) % RDW (13.2-15.2) % Lymphocytes % (Manual) (13.4-35.0) % Monocytes % (Manual) (0.0-7.3) % Seg Neutrophils # Man (1.8-7.7) K/mm3 Monocytes # (Manual) (0.0-0.8) K/mm3 Chloride 96.3 L (98-107) mmol/L BUN 92 H (7-17) mg/dL Creatinine 2.4 H (0.7-1.2) mg/dL Glucose 111 H (65-100) mg/dL POC Glucose 50 L 113 H (70-105) Calcium 8.3 L (8.4-10.2) mg/dL Magnesium 1.50 L (1.7-2.3) mg/dL 10/04/17 10/04/17 10/04/17 Range/Units 04:47 05:19 09:53 WBC 18.9 H (4.5-11.0) K/mm3 RBC 2.58 L (3.65-5.03) M/mm3 Hgb 7.8 L (10.1-14.3) gm/dl Hct 23.1 L (30.3-42.9) % RDW 17.2 H (13.2-15.2) % Lymphocytes % (Manual) 11.0 L (13.4-35.0) % Monocytes % (Manual) 22.0 H (0.0-7.3) % Seg Neutrophils # Man 10.4 H (1.8-7.7) K/mm3 Monocytes # (Manual) 4.2 H (0.0-0.8) K/mm3 Chloride (98-107) mmol/L BUN (7-17) mg/dL Creatinine (0.7-1.2) mg/dL Glucose (65-100) mg/dL POC Glucose 109 H 185 H (70-105) Calcium (8.4-10.2) mg/dL Magnesium (1.7-2.3) mg/dL 10/04/17 Range/Units 17:01 WBC (4.5-11.0) K/mm3 RBC (3.65-5.03) M/mm3 Hgb (10.1-14.3) gm/dl Hct (30.3-42.9) % RDW (13.2-15.2) % Lymphocytes % (Manual) (13.4-35.0) % Monocytes % (Manual) (0.0-7.3) % Seg Neutrophils # Man (1.8-7.7) K/mm3 Monocytes # (Manual) (0.0-0.8) K/mm3 Chloride (98-107) mmol/L BUN (7-17) mg/dL Creatinine (0.7-1.2) mg/dL Glucose (65-100) mg/dL POC Glucose 244 H (70-105) Calcium (8.4-10.2) mg/dL Magnesium (1.7-2.3) mg/dL
[2017-10-05] MEDS: DILAUDID IV PRN ×5 (01:25→18:59)
[2017-10-05] MEDS: LEVOPHED 8 MG in NACL 0.9% 250ML 242 ML IV SCH ×2 (04:07→19:51)
[2017-10-05 05:04] LABS: Hematocrit 23.2 % (30.3-42.9); Hemoglobin 7.7 gm/dl (10.1-14.3); Mean Corpuscular HGB Conc 33 % (30-34); Mean Corpuscular Hemoglobin 30 pg (28-32); Mean Corpuscular Volume 91 fl (79-97); Platelet Count 308 K/mm3 (140-440); Red Blood Count 2.56 M/mm3 (3.65-5.03); Red Cell Distribution Width 17.5 % (13.2-15.2); White Blood Count 14.3 K/mm3 (4.5-11.0)
[2017-10-05 05:10] LABS: Calcium 8.4 mg/dL (8.4-10.2); Magnesium 1.7 mg/dL (1.7-2.3); Phosphorous 3.1 mg/dL (2.5-4.5); Potassium 3.8 mmol/L (3.6-5.0)
[2017-10-05] MEDS: NOVOLOG SUB-Q SCH ×3 (05:25→18:41)
[2017-10-05 06:21] LABS: Basophils % (Manual) 0 % (0.0-1.8); Blastocytes % (Manual) 0 %; Eosinophils % (Manual) 0 % (0.0-4.3)
[2017-10-05 06:22] LABS: Anisocytosis 1+; Dohle Bodies 1+; Hypochromasia 1+
[2017-10-05 06:23] LABS: Diff Status Complete; Platelet Estimate Appe; Toxic Vacuolation Few
[2017-10-05] MEDS: PROAMATINE FEEDTUBE SCH ×3 (07:44→20:00)
--- NOTE | 2017-10-05 09:41 | Progress Note ---
Assessment and Plan Assessment and plan: 62 yo female with abdominal abscess and peritonitis s/p surgical intervention complicated with bowel obstruction/surgical wound infection/dehiscence and multiple surgical reinterventions, with respiratory failure and refractory hypotension --Acute hypoxic respiratory failure Status post trach Still on vent, continue current management pulmonary following --Septic shock ; continue Levothroid and midodrine, supportive care Due to abdominal abscess and catheter associated UTI Patient has candidemia; on micafungin, ID following the patient --End-stage renal disease ,Previously on PD, now on hemodialysis, scheduled Nephrology following --Acute blood loss anemia and anemia of chronic disease Received multiple PRBCs transfusion, monitor H&H and transfuse additional as needed, Procrit during dialysis --Ulcerative esophagitis/small gastric ulcer Status post EGD, transfusion, continue ProtonixI --Acute bacterial peritonitis/intra-abdominal abscess/bowel obstruction S/p PD catheter removal and multiple exploratory laparatomy 08/17 expl lap - abscess LUQ, bowel obstruction, ?perforation of unclear location ; PDs cath removal, abd washout, G tube placement 08/31 expl lap with washout and closure 09/15 expl lap transverse colectomy, right-sided colostomy, washout 09/24 expl lap abdominal washout, placement of biological mesh, closure of small bowel enterotomy Complicated with wound infection, dehiscence Multiple antibiotic courses per ID recommendation; completed 7 day course of meropenem and fluconazole --catheter Associated UTI ,Completed antibiotics --History of pancreatitis ,Resolved --History of cervical surgery /Wheelchair bound since then Pain control --Hypoalbuminemia; severe protein calorie malnutrition; Continue TPN, nutrition supplements and supportive care --DVT prophylaxis; SCDs -- Full CODE STATUS Critical care time 31 minutes The high probability of a clinically significant, sudden or life threatening deterioration of the [Renal ,cv, pulmonary and GI] system(s) required my full and direct attention, intervention and personal management. The aggregate critical care time was [31] minutes. This time is in addition to time spent performing reported procedures but includes the following: [x] Data Review and interpretation [x] Patient assessment and monitoring of vital signs [x] Documentation [x] Medication orders and management History Interval history: Patient seen and examined medical records reviewed Patient s/p tracheostomy on vent support Vital signs reviewed Morbidly obese chronically ill looking Hospitalist Physical - Constitutional Vitals: Temp Pulse Resp BP Pulse Ox 97.1 F L 107 H 29 H 103/43 100 10/05/17 08:00 10/05/17 08:15 10/05/17 08:15 10/05/17 08:15 10/05/17 08:15 General appearance: Present: mild distress, obese, other (s/p tracheostomy on vent) - EENT Eyes: Present: PERRL, EOM intact - Respiratory Respiratory effort: normal Respiratory: bilateral: diminished, rhonchi - Cardiovascular Rhythm: regular Heart Sounds: Present: S1 & S2 - Extremities Extremities: no ischemia, No edema - Abdominal General gastrointestinal: soft Results - Labs CBC & Chem 7: 10/05/17 04:00 10/06/17 04:07 Labs: Laboratory Last Values WBC 14.3 K/mm3 (4.5-11.0) H 10/05/17 04:00 RBC 2.56 M/mm3 (3.65-5.03) L 10/05/17 04:00 Hgb 7.7 gm/dl (10.1-14.3) L 10/05/17 04:00 Hct 23.2 % (30.3-42.9) L 10/05/17 04:00 MCV 91 fl (79-97) 10/05/17 04:00 MCH 30 pg (28-32) 10/05/17 04:00 MCHC 33 % (30-34) 10/05/17 04:00 RDW 17.5 % (13.2-15.2) H 10/05/17 04:00 Plt Count 308 K/mm3 (140-440) 10/05/17 04:00 Lymph % (Auto) Crime Scene Analyst 08/19/17 07:37 [place] % (Auto) Crime Scene Analyst 10/05/17 04:00 Eos % (Auto) Crime Scene Analyst 08/19/17 07:37 Baso % (Auto) Crime Scene Analyst 08/19/17 07:37 Lymph # Crime Scene Analyst 09/26/17 05:25 [place] # Crime Scene Analyst 08/19/17 07:37 Eos # Crime Scene Analyst 08/19/17 07:37 Baso # Crime Scene Analyst 08/19/17 07:37 Add Manual Diff Complete 10/05/17 04:00 Total Counted 100 10/05/17 04:00 Seg Neutrophils % Crime Scene Analyst 09/08/17 04:05 Seg Neuts % (Manual) 25.0 % (40.0-70.0) L 10/05/17 04:00 Band Neutrophils % 50.0 % 10/05/17 04:00 Lymphocytes % (Manual) 12.0 % (13.4-35.0) L 10/05/17 04:00 Reactive Lymphs % (Man) 0 % 10/05/17 04:00 Monocytes % (Manual) 13.0 % (0.0-7.3) H 10/05/17 04:00 Eosinophils % (Manual) 0 % (0.0-4.3) 10/05/17 04:00 Basophils % (Manual) 0 % (0.0-1.8) 10/05/17 04:00 Metamyelocytes % 0 % 10/05/17 04:00 Myelocytes % 0 % 10/05/17 04:00 Promyelocytes % 0 % 10/05/17 04:00 Blast Cells % 0 % 10/05/17 04:00 Nucleated RBC % Not Reportable 10/05/17 04:00 Seg Neutrophils # Crime Scene Analyst 08/19/17 07:37 Seg Neutrophils # Man 3.6 K/mm3 (1.8-7.7) 10/05/17 04:00 Band Neutrophils # 7.2 K/mm3 10/05/17 04:00 Lymphocytes # (Manual) 1.7 K/mm3 (1.2-5.4) 10/05/17 04:00 Abs React Lymphs (Man) 0.0 K/mm3 10/05/17 04:00 Monocytes # (Manual) 1.9 K/mm3 (0.0-0.8) H 10/05/17 04:00 Eosinophils # (Manual) 0.0 K/mm3 (0.0-0.4) 10/05/17 04:00 Basophils # (Manual) 0.0 K/mm3 (0.0-0.1) 10/05/17 04:00 Metamyelocytes # 0.0 K/mm3 10/05/17 04:00 Myelocytes # 0.0 K/mm3 10/05/17 04:00 Promyelocytes # 0.0 K/mm3 10/05/17 04:00 Blast Cells # 0.0 K/mm3 10/05/17 04:00 Pathologist Review Not Reportable 08/30/17 05:20 WBC Morphology Not Reportable 10/05/17 04:00 Hypersegmented Neuts Not Reportable 10/05/17 04:00 Hyposegmented Neuts Not Reportable 10/05/17 04:00 Hypogranular Neuts Not Reportable 10/05/17 04:00 Smudge Cells Not Reportable 10/05/17 04:00 Toxic Granulation Not Reportable 10/05/17 04:00 Toxic Vacuolation Few 10/05/17 04:00 Dohle Bodies 1+ 10/05/17 04:00 Pelger-Huet Anomaly Not Reportable 10/05/17 04:00 Ariel Rods Not Reportable 10/05/17 04:00 Platelet Estimate Appe 10/05/17 04:00 Clumped Platelets Not Reportable 10/05/17 04:00 Plt Clumps, EDTA Not Reportable 10/05/17 04:00 Large Platelets Not Reportable 10/05/17 04:00 Giant Platelets Not Reportable 10/05/17 04:00 Platelet Satelliting Not Reportable 10/05/17 04:00 Plt Morphology Comment Not Reportable 10/05/17 04:00 RBC Morphology Not Reportable 10/05/17 04:00 Dimorphic RBCs Not Reportable 10/05/17 04:00 Polychromasia Not Reportable 10/05/17 04:00 Hypochromasia 1+ 10/05/17 04:00 Poikilocytosis Not Reportable 10/05/17 04:00 Anisocytosis 1+ 10/05/17 04:00 Microcytosis Not Reportable 10/05/17 04:00 Macrocytosis Not Reportable 10/05/17 04:00 Spherocytes Not Reportable 10/05/17 04:00 Pappenheimer Bodies Not Reportable 10/05/17 04:00 Sickle Cells Not Reportable 10/05/17 04:00 Target Cells Not Reportable 10/05/17 04:00 Tear Drop Cells Not Reportable 10/05/17 04:00 Ovalocytes Not Reportable 10/05/17 04:00 Stomatocytes Rare 09/12/17 05:25 Helmet Cells Not Reportable 10/05/17 04:00 Vera-Norman Bodies Not Reportable 10/05/17 04:00 [place] Rings Not Reportable 10/05/17 04:00 Yusuf Cells Not Reportable 10/05/17 04:00 Bite Cells Not Reportable 10/05/17 04:00 Crenated Cell Not Reportable 10/05/17 04:00 Elliptocytes Not Reportable 10/05/17 04:00 Acanthocytes (Spur) Not Reportable 10/05/17 04:00 Rouleaux Not Reportable 10/05/17 04:00 Hemoglobin C Crystals Not Reportable 10/05/17 04:00 Schistocytes Not Reportable 10/05/17 04:00 Malaria parasites Not Reportable 10/05/17 04:00 Jovanni Bodies Not Reportable 10/05/17 04:00 Hem Pathologist Commnt No 10/05/17 04:00 PT 14.9 Sec. (12.2-14.9) 09/21/17 07:00 INR 1.11 (0.87-1.13) 09/21/17 07:00 APTT 28.7 Sec. (24.2-36.6) 08/31/17 18:15 POC ABG pH 7.347 (7.35-7.45) L 09/13/17 11:36 ABG pH 7.323 pH Units (7.350-7.450) L 09/09/17 Unknown POC ABG pCO2 34.3 (35-45) L 09/13/17 11:36 ABG pCO2 41.1 mm Hg 09/09/17 Unknown POC ABG pO2 134 (80-105) H 09/13/17 11:36 ABG pO2 94.1 mm Hg (80.0-90.0) H 09/09/17 Unknown POC ABG HCO3 18.8 09/13/17 11:36 ABG HCO3 20.9 mmol/L (20.0-26.0) 09/09/17 Unknown POC ABG Total CO2 20 09/13/17 11:36 POC ABG O2 Sat 99 09/13/17 11:36 ABG O2 Saturation 97.2 % (95.0-99.0) 09/09/17 Unknown ABG O2 Content 10.9 (0.0-44) 09/09/17 Unknown POC ABG Base Excess -7 09/13/17 11:36 ABG Base Excess -4.8 mmol/L (-2.0-3.0) L 09/09/17 Unknown ABG Hemoglobin 8.0 gm/dl (12.0-16.0) L 09/09/17 Unknown ABG Carboxyhemoglobin 2.0 % (0.0-5.0) 09/09/17 Unknown ABG Methemoglobin 0.3 % (0.0-1.5) 09/09/17 Unknown VBG pH 7.462 (7.320-7.420) H 08/08/17 14:52 Oxyhemoglobin 94.9 % (95.0-99.0) L 09/09/17 Unknown FiO2 30 % 09/13/17 11:36 Sodium 139 mmol/L (137-145) 10/05/17 04:00 Potassium 3.8 mmol/L (3.6-5.0) 10/05/17 04:00 Chloride 98.0 mmol/L (98-107) 10/05/17 04:00 Carbon Dioxide 20 mmol/L (22-30) L 10/05/17 04:00 Anion Gap 25 mmol/L 10/05/17 04:00 BUN 113 mg/dL (7-17) H 10/05/17 04:00 Creatinine 3.0 mg/dL (0.7-1.2) H 10/05/17 04:00 Estimated GFR 19 ml/min 10/05/17 04:00 BUN/Creatinine Ratio 38 % 10/05/17 04:00 Glucose 229 mg/dL (65-100) H 10/05/17 04:00 POC Glucose 247 (70-105) H 10/05/17 05:16 Lactic Acid 1.60 mmol/L (0.7-2.0) 08/17/17 11:20 Calcium 8.4 mg/dL (8.4-10.2) 10/05/17 04:00 Phosphorus 3.10 mg/dL (2.5-4.5) 10/05/17 04:00 Magnesium 1.70 mg/dL (1.7-2.3) 10/05/17 04:00 Iron 22 ug/dL (37-170) L 09/12/17 05:25 TIBC 81 mcg/dL (250-450) L 09/12/17 05:25 Ferritin > 2000.0 ng/mL (13.0-400.0) H 09/12/17 05:25 Total Bilirubin 0.70 mg/dL (0.1-1.2) 09/22/17 03:37 Direct Bilirubin 0.2 mg/dL (0-0.2) 08/08/17 14:11 Indirect Bilirubin 0.3 mg/dL 08/08/17 14:11 AST 33 units/L (5-40) 09/22/17 03:37 ALT 16 units/L (7-56) 09/22/17 03:37 Alkaline Phosphatase 311 units/L (35-129) H 09/22/17 03:37 Ammonia 25.0 umol/L (25-60) 08/08/17 14:52 Total Creatine Kinase 20 units/L (30-135) L 09/16/17 05:30 Troponin T 0.132 ng/mL (0.00-0.029) H* 08/09/17 13:25 C-Reactive Protein 2.80 mg/dL (0.00-1.30) H 09/06/17 05:30 NT-Pro-B Natriuret Pep 6156 pg/mL (0-900) H 08/08/17 14:11 Total Protein 4.4 g/dL (6.3-8.2) L 09/22/17 03:37 Albumin 2.0 g/dL (3.9-5) L 09/22/17 03:37 Albumin/Globulin Ratio 0.8 % 09/22/17 03:37 Triglycerides 180 mg/dL (2-149) H 09/03/17 04:00 Cholesterol 91 mg/dL (50-199) 08/08/17 21:23 LDL Cholesterol Direct 53 mg/dL (50-130) 08/08/17 21:23 HDL Cholesterol 26 mg/dL (40-59) L 08/08/17 21:23 Cholesterol/HDL Ratio 3.50 % 08/08/17 21:23 Amylase 45 units/L (27-131) 08/16/17 09:50 Lipase 34 units/L (13-60) 08/16/17 09:50 TSH 6.580 mlU/mL (0.270-4.200) H 08/08/17 14:22 Free T4 1.46 ng/dL (0.76-1.46) 08/08/17 14:22 Total Cortisol 28.3 mcg/dL () 09/13/17 12:50 Urine Color Yellow (Yellow) 08/08/17 20:15 Urine Turbidity Turbid (Clear) 08/08/17 20:15 Urine pH 8.0 (5.0-7.0) H 08/08/17 20:15 Ur Specific [place] 1.015 (1.003-1.030) 08/08/17 20:15 Urine Protein 100 mg/dl mg/dL (Negative) 08/08/17 20:15 Urine Glucose (UA) Neg mg/dL (Negative) 08/08/17 20:15 Urine Ketones Neg mg/dL (Negative) 08/08/17 20:15 Urine Blood Mod (Negative) 08/08/17 20:15 Urine Nitrite Neg (Negative) 08/08/17 20:15 Urine Bilirubin Neg (Negative) 08/08/17 20:15 Urine Urobilinogen < 2.0 mg/dL (<2.0) 08/08/17 20:15 Ur Leukocyte Esterase Lg (Negative) 08/08/17 20:15 Urine WBC (Auto) 24.0 /HPF (0.0-6.0) H 08/08/17 20:15 Urine RBC (Auto) 3.0 /HPF (0.0-6.0) 08/08/17 20:15 U Epithel Cells (Auto) 3.0 /HPF (0-13.0) 08/08/17 20:15 Urine Bacteria (Auto) 4+ /HPF (Negative) 08/08/17 20:15 Urine Mucus 3+ /HPF 08/08/17 20:15 Fluid Type Peritoneal 08/08/17 18:18 Fluid Color Straw 08/08/17 18:18 Fluid Appearance Clear 08/08/17 18:18 Fluid pH 7.74 08/08/17 18:18 Fluid WBC 4 /mm3 08/08/17 18:18 Fluid RBC 1 /mm3 08/08/17 18:18 Fluid Seg Neutrophils 12 % 08/08/17 18:18 Fluid Lymphocytes 0 % 08/08/17 18:18 Fluid Reactive Lymphs 0 % 08/08/17 18:18 Fluid Monocytes 1 % 08/08/17 18:18 Fluid Eosinophils 0 % 08/08/17 18:18 Fluid Basophils 0 % 08/08/17 18:18 Fluid Glucose 315 mg/dL (40-70) H 08/08/17 18:18 Random Vancomycin 19.5 ug/mL (0-40.0) 08/22/17 03:40 Hep Bs Antigen Non-reactive (Negative) 08/22/17 03:40 Hepatitis C Antibody Non-reactive (NonReactive) 08/22/17 03:40 Miscellaneous Test Flexitest 1 H 09/06/17 09:57 Blood Type O POSITIVE 09/27/17 08:58 Antibody Screen Negative 09/27/17 08:58 VAN Antibody Screen Negative 09/07/17 17:07 Crossmatch See Detail 09/27/17 08:58
[2017-10-05] MEDS: MYCAMINE 100 MG in NACL 0.9% 100 ML IV SCH (09:43)
[2017-10-05] MEDS: LEVEMIR SUB-Q SCH (09:44)
[2017-10-05] MEDS: PROTONIX FEEDTUBE SCH (09:44)
--- NOTE | 2017-10-05 09:47 | Progress Note ---
Assessment and Plan 62 y/o female originally admitted with hypotension, now back to ICU secondary to worsening hypotension, concern for sepsis, with acute respiratory failure post-op from ex-lap for abdominal distention and possible ileus, now back from OR after worsening respiratory failure, requiring re-intubation and wash out of abdomen 1. Wean pressors for MAPs >60 2. HD per renal. Will need new vascath. Renal discussing with vascular. Scheduled for today. 3. Daily PSV trials with hopes of doing 24 hour PSV trial. Rest on rate while on HD 4. Steroids have been discontinued, please attempt to not restart these as surgery feels it is impeding the healing of the abdominal wound 5. Started tube feeds 09/30 at 10, but already having residuals, will continue to monitor. 6. Once medical issues have concrete plan, should be ready for transfer to [facility] 7. Ultimately, overall prognosis here is extremely poor. I suggest that a family meeting be held to discuss realistic goals and what the future plan of care will be. With her still requiring pressors and now fungemic still needing TPN for nutrition, the likely canas of sepsis with shock developing is high and survival in this patient would be very very low. Would be better if all disciplines can attend to help family understand the severity of this situation CCT 31 Subjective Date of service: 10/05/17 Principal diagnosis: respiratory failure, sepsis, shock rectal bleeding Interval history: No acute events. BUN and CR worse. Scheduled for catheter placement today. Mental status is the same. Tolerating PSV trials Objective Vital Signs - 12hr 10/04/17 10/04/17 10/04/17 21:46 22:00 22:16 Temperature Pulse Rate 111 H 112 H 111 H Pulse Rate [ Apical] Pulse Rate [ From Monitor] Respiratory 26 H 26 H 24 Rate Blood Pressure 111/54 123/58 123/58 O2 Sat by Pulse 97 96 98 Oximetry O2 Sat by Pulse Oximetry [ Assessment] 10/04/17 10/04/17 10/04/17 22:30 22:46 23:00 Temperature Pulse Rate 108 H 107 H 109 H Pulse Rate [ Apical] Pulse Rate [ From Monitor] Respiratory 25 H 25 H 26 H Rate Blood Pressure 123/58 123/58 118/56 O2 Sat by Pulse 98 98 96 Oximetry O2 Sat by Pulse Oximetry [ Assessment] 10/04/17 10/04/17 10/04/17 23:16 23:30 23:40 Temperature Pulse Rate 109 H 109 H 107 H Pulse Rate [ Apical] Pulse Rate [ From Monitor] Respiratory 26 H 27 H 26 H Rate Blood Pressure 118/56 118/56 118/56 O2 Sat by Pulse 99 98 98 Oximetry O2 Sat by Pulse Oximetry [ Assessment] 10/04/17 10/04/17 10/05/17 23:46 23:50 00:00 Temperature 99.9 F H Pulse Rate 108 H 107 H 109 H Pulse Rate [ Apical] Pulse Rate [ From Monitor] Respiratory 25 H 23 28 H Rate Blood Pressure 118/56 122/57 O2 Sat by Pulse 99 99 97 Oximetry O2 Sat by Pulse Oximetry [ Assessment] 10/05/17 10/05/17 10/05/17 00:16 00:30 00:46 Temperature Pulse Rate 112 H 109 H 112 H Pulse Rate [ Apical] Pulse Rate [ From Monitor] Respiratory 28 H 31 H 34 H Rate Blood Pressure 122/57 122/57 122/57 O2 Sat by Pulse 99 99 98 Oximetry O2 Sat by Pulse Oximetry [ Assessment] 10/05/17 10/05/17 10/05/17 01:00 01:16 01:20 Temperature Pulse Rate 110 H 109 H Pulse Rate [ Apical] Pulse Rate [ From Monitor] Respiratory 37 H 33 H Rate Blood Pressure 122/57 139/85 O2 Sat by Pulse 95 98 99 Oximetry O2 Sat by Pulse Oximetry [ Assessment] 10/05/17 10/05/17 10/05/17 01:25 01:30 01:46 Temperature Pulse Rate 104 H 103 H Pulse Rate [ Apical] Pulse Rate [ From Monitor] Respiratory 32 H 28 H 22 Rate Blood Pressure 139/85 139/85 O2 Sat by Pulse 99 99 Oximetry O2 Sat by Pulse Oximetry [ Assessment] 10/05/17 10/05/17 10/05/17 01:55 02:00 02:15 Temperature Pulse Rate 104 H 101 H Pulse Rate [ Apical] Pulse Rate [ From Monitor] Respiratory 28 H 28 H 29 H Rate Blood Pressure 139/85 O2 Sat by Pulse 99 100 Oximetry O2 Sat by Pulse Oximetry [ Assessment] 10/05/17 10/05/17 10/05/17 02:31 02:45 03:00 Temperature Pulse Rate 106 H 97 H 106 H Pulse Rate [ Apical] Pulse Rate [ From Monitor] Respiratory 16 24 31 H Rate Blood Pressure 125/60 125/60 125/62 O2 Sat by Pulse 100 100 98 Oximetry O2 Sat by Pulse Oximetry [ Assessment] 10/05/17 10/05/17 10/05/17 03:02 03:15 03:31 Temperature 98.9 F Pulse Rate 100 H 102 H Pulse Rate [ Apical] Pulse Rate [ From Monitor] Respiratory 24 29 H Rate Blood Pressure 125/62 125/62 O2 Sat by Pulse 99 97 Oximetry O2 Sat by Pulse Oximetry [ Assessment] 10/05/17 10/05/17 10/05/17 03:45 04:00 04:15 Temperature Pulse Rate 99 H 107 H 100 H Pulse Rate [ Apical] Pulse Rate [ From Monitor] Respiratory 24 30 H 27 H Rate Blood Pressure 125/62 120/59 120/59 O2 Sat by Pulse 98 97 98 Oximetry O2 Sat by Pulse 98 Oximetry [ Assessment] 10/05/17 10/05/17 10/05/17 04:20 04:31 04:45 Temperature Pulse Rate 104 H 97 H 108 H Pulse Rate [ Apical] Pulse Rate [ From Monitor] Respiratory 27 H 20 Rate Blood Pressure 120/59 120/59 120/59 O2 Sat by Pulse 98 99 99 Oximetry O2 Sat by Pulse Oximetry [ Assessment] 10/05/17 10/05/17 10/05/17 05:00 05:15 05:28 Temperature Pulse Rate 108 H 106 H Pulse Rate [ Apical] Pulse Rate [ From Monitor] Respiratory 28 H 24 27 H Rate Blood Pressure 114/55 114/55 O2 Sat by Pulse 99 98 99 Oximetry O2 Sat by Pulse Oximetry [ Assessment] 10/05/17 10/05/17 10/05/17 05:31 05:45 06:00 Temperature Pulse Rate 104 H 104 H 107 H Pulse Rate [ Apical] Pulse Rate [ From Monitor] Respiratory 29 H 28 H 30 H Rate Blood Pressure 114/55 114/55 119/51 O2 Sat by Pulse 99 99 98 Oximetry O2 Sat by Pulse Oximetry [ Assessment] 10/05/17 10/05/17 10/05/17 06:15 06:31 06:45 Temperature Pulse Rate 104 H 104 H 107 H Pulse Rate [ Apical] Pulse Rate [ From Monitor] Respiratory 30 H 28 H 30 H Rate Blood Pressure 114/55 114/55 119/51 O2 Sat by Pulse 99 100 100 Oximetry O2 Sat by Pulse Oximetry [ Assessment] 10/05/17 10/05/17 10/05/17 07:00 07:15 07:31 Temperature Pulse Rate 108 H 106 H 105 H Pulse Rate [ Apical] Pulse Rate [ From Monitor] Respiratory 33 H 31 H 28 H Rate Blood Pressure 119/57 119/57 119/57 O2 Sat by Pulse 99 100 100 Oximetry O2 Sat by Pulse Oximetry [ Assessment] 10/05/17 10/05/17 10/05/17 07:45 07:56 08:00 Temperature 97.1 F L Pulse Rate 108 H 107 H Pulse Rate [ 104 H Apical] Pulse Rate [ 109 H From Monitor] Respiratory 29 H Rate Blood Pressure 119/57 95/46 O2 Sat by Pulse 100 100 Oximetry O2 Sat by Pulse 100 Oximetry [ Assessment] 10/05/17 10/05/17 10/05/17 08:01 08:15 08:31 Temperature Pulse Rate 104 H 107 H 104 H Pulse Rate [ Apical] Pulse Rate [ From Monitor] Respiratory 25 H 29 H 24 Rate Blood Pressure 103/43 103/43 103/43 O2 Sat by Pulse 98 100 100 Oximetry O2 Sat by Pulse Oximetry [ Assessment] 10/05/17 10/05/17 10/05/17 08:45 09:00 09:15 Temperature Pulse Rate 108 H 107 H 107 H Pulse Rate [ Apical] Pulse Rate [ From Monitor] Respiratory 30 H 25 H 26 H Rate Blood Pressure 103/43 113/47 103/43 O2 Sat by Pulse 100 97 100 Oximetry O2 Sat by Pulse Oximetry [ Assessment] 10/05/17 09:31 Temperature Pulse Rate 109 H Pulse Rate [ Apical] Pulse Rate [ From Monitor] Respiratory 28 H Rate Blood Pressure 103/43 O2 Sat by Pulse 100 Oximetry O2 Sat by Pulse Oximetry [ Assessment] Constitutional: no acute distress, lethargic Eyes: non-icteric ENT: oropharynx dry Neck: supple, other (trach in position, no bleeding) Effort: normal Ascultation: Bilateral: clear ( ), diminished breath sounds Cardiovascular: regular rate and rhythm (no mrg) Gastrointestinal: absent bowel sounds, non-tender, other (abdominal incision with dressing , obese. Drain in place, no bleeding; ostomy with brown stool) Integumentary: normal Extremities: no cyanosis, pink and warm, edema Neurologic: non-focal exam, pupils equal and round Psychiatric: mood appropriate, affect normal CBC and BMP: 10/05/17 04:00 10/05/17 04:00 ABG, PT/INR, D-dimer: ABG POC ABG pH 7.347 (7.35-7.45) L 09/13/17 11:36 ABG pH 7.323 pH Units (7.350-7.450) L 09/09/17 Unknown POC ABG pCO2 34.3 (35-45) L 09/13/17 11:36 ABG pCO2 41.1 mm Hg 09/09/17 Unknown POC ABG pO2 134 (80-105) H 09/13/17 11:36 ABG pO2 94.1 mm Hg (80.0-90.0) H 09/09/17 Unknown POC ABG HCO3 18.8 09/13/17 11:36 POC ABG Total CO2 20 09/13/17 11:36 POC ABG O2 Sat 99 09/13/17 11:36 ABG O2 Saturation 97.2 % (95.0-99.0) 09/09/17 Unknown PT/INR, D-dimer PT 14.9 Sec. (12.2-14.9) 09/21/17 07:00 INR 1.11 (0.87-1.13) 09/21/17 07:00 Abnormal lab findings: Abnormal Labs 08/08/17 08/08/17 08/09/17 21:23 21:31 11:19 WBC 15.7 H RBC 2.93 L Hgb 8.7 L Hct 26.8 L MCV MCH MCHC RDW 19.2 H Plt Count Lymph % (Auto) [place] % (Auto) [place] # Seg Neutrophils % Seg Neuts % (Manual) Lymphocytes % (Manual) Monocytes % (Manual) Nucleated RBC % Seg Neutrophils # Seg Neutrophils # Man Lymphocytes # (Manual) Monocytes # (Manual) Eosinophils # (Manual) Basophils # (Manual) PT INR POC ABG pH 7.490 H ABG pH POC ABG pCO2 POC ABG pO2 122 H ABG pO2 ABG O2 Saturation ABG Base Excess ABG Hemoglobin Oxyhemoglobin Sodium Potassium Chloride Carbon Dioxide BUN Creatinine Glucose POC Glucose Calcium Phosphorus Magnesium Iron TIBC Ferritin Total Bilirubin AST ALT Alkaline Phosphatase Total Creatine Kinase Troponin T 0.133 H* C-Reactive Protein Total Protein Albumin Triglycerides HDL Cholesterol 26 L Miscellaneous Test Crossmatch 08/09/17 08/10/17 08/10/17 13:25 04:45 04:45 WBC 15.5 H RBC 2.97 L Hgb 8.9 L Hct 27.0 L MCV MCH MCHC RDW 19.2 H Plt Count Lymph % (Auto) [place] % (Auto) [place] # Seg Neutrophils % Seg Neuts % (Manual) 73.0 H Lymphocytes % (Manual) 7.0 L Monocytes % (Manual) 14.0 H Nucleated RBC % Seg Neutrophils # Seg Neutrophils # Man 11.3 H Lymphocytes # (Manual) 1.1 L Monocytes # (Manual) 2.2 H Eosinophils # (Manual) Basophils # (Manual) 0.2 H PT INR POC ABG pH ABG pH POC ABG pCO2 POC ABG pO2 ABG pO2 ABG O2 Saturation ABG Base Excess ABG Hemoglobin Oxyhemoglobin Sodium Potassium 3.3 L Chloride 97.3 L Carbon Dioxide 21 L BUN 23 H Creatinine 6.5 H Glucose POC Glucose Calcium 7.3 L Phosphorus Magnesium Iron TIBC Ferritin Total Bilirubin AST ALT Alkaline Phosphatase 138 H Total Creatine Kinase Troponin T 0.132 H* C-Reactive Protein Total Protein 4.8 L Albumin 1.4 L Triglycerides HDL Cholesterol Miscellaneous Test Crossmatch 08/11/17 08/11/17 08/12/17 04:00 04:00 05:50 WBC 19.3 H RBC 3.10 L Hgb 9.5 L Hct 28.2 L MCV MCH MCHC RDW 19.2 H Plt Count 463 H Lymph % (Auto) 7.5 L [place] % (Auto) 14.6 H [place] # 2.8 H Seg Neutrophils % 77.0 H Seg Neuts % (Manual) Lymphocytes % (Manual) Monocytes % (Manual) Nucleated RBC % Seg Neutrophils # 14.8 H Seg Neutrophils # Man Lymphocytes # (Manual) Monocytes # (Manual) Eosinophils # (Manual) Basophils # (Manual) PT INR POC ABG pH ABG pH POC ABG pCO2 POC ABG pO2 ABG pO2 ABG O2 Saturation ABG Base Excess ABG Hemoglobin Oxyhemoglobin Sodium 136 L 136 L Potassium 3.3 L Chloride 96.3 L 96.6 L Carbon Dioxide BUN 26 H 26 H Creatinine 6.4 H 6.2 H Glucose 135 H 133 H POC Glucose Calcium 8.2 L Phosphorus Magnesium 1.30 L Iron TIBC Ferritin Total Bilirubin AST ALT Alkaline Phosphatase 139 H Total Creatine Kinase Troponin T C-Reactive Protein Total Protein 5.5 L Albumin 1.7 L Triglycerides HDL Cholesterol Miscellaneous Test Crossmatch 08/12/17 08/12/17 08/12/17 05:50 05:50 05:50 WBC 20.1 H RBC 3.06 L Hgb 9.3 L Hct 27.9 L MCV MCH MCHC RDW 18.4 H Plt Count 471 H Lymph % (Auto) [place] % (Auto) [place] # Seg Neutrophils % Seg Neuts % (Manual) 85.0 H Lymphocytes % (Manual) 8.0 L Monocytes % (Manual) Nucleated RBC % Seg Neutrophils # Seg Neutrophils # Man 17.1 H Lymphocytes # (Manual) Monocytes # (Manual) 1.0 H Eosinophils # (Manual) Basophils # (Manual) PT 15.2 H INR 1.14 H POC ABG pH ABG pH POC ABG pCO2 POC ABG pO2 ABG pO2 ABG O2 Saturation ABG Base Excess ABG Hemoglobin Oxyhemoglobin Sodium Potassium Chloride Carbon Dioxide BUN Creatinine Glucose POC Glucose Calcium Phosphorus Magnesium Iron TIBC Ferritin Total Bilirubin AST ALT Alkaline Phosphatase Total Creatine Kinase Troponin T C-Reactive Protein 28.90 H Total Protein Albumin Triglycerides HDL Cholesterol Miscellaneous Test Crossmatch 08/12/17 08/13/17 08/13/17 16:23 06:14 06:14 WBC 21.8 H RBC 3.11 L Hgb 9.4 L Hct 28.2 L MCV MCH MCHC RDW 18.2 H Plt Count 492 H Lymph % (Auto) [place] % (Auto) [place] # Seg Neutrophils % Seg Neuts % (Manual) 73.0 H Lymphocytes % (Manual) 2.0 L Monocytes % (Manual) 15 H Nucleated RBC % Seg Neutrophils # Seg Neutrophils # Man 15.9 H Lymphocytes # (Manual) 0.4 L Monocytes # (Manual) 2.4 H Eosinophils # (Manual) Basophils # (Manual) PT INR POC ABG pH ABG pH POC ABG pCO2 POC ABG pO2 ABG pO2 ABG O2 Saturation ABG Base Excess ABG Hemoglobin Oxyhemoglobin Sodium Potassium Chloride 96.2 L Carbon Dioxide BUN 28 H Creatinine 5.6 H Glucose 114 H POC Glucose Calcium Phosphorus Magnesium Iron TIBC Ferritin Total Bilirubin AST ALT Alkaline Phosphatase Total Creatine Kinase Troponin T C-Reactive Protein 26.10 H Total Protein Albumin Triglycerides HDL Cholesterol Miscellaneous Test Crossmatch 0908/14/17 08/14/17 16:39 04:00 04:00 WBC 22.1 H RBC 3.25 L Hgb 9.9 L Hct 29.5 L MCV MCH MCHC RDW 17.9 H Plt Count 525 H Lymph % (Auto) [place] % (Auto) [place] # Seg Neutrophils % Seg Neuts % (Manual) 74.0 H Lymphocytes % (Manual) 8.0 L Monocytes % (Manual) 12.0 H Nucleated RBC % Seg Neutrophils # Seg Neutrophils # Man 16.4 H Lymphocytes # (Manual) Monocytes # (Manual) 2.7 H Eosinophils # (Manual) Basophils # (Manual) PT INR POC ABG pH ABG pH POC ABG pCO2 POC ABG pO2 ABG pO2 ABG O2 Saturation ABG Base Excess ABG Hemoglobin Oxyhemoglobin Sodium 134 L Potassium 3.3 L Chloride 93.3 L Carbon Dioxide BUN 27 H Creatinine 6.0 H Glucose 152 H POC Glucose 151 H Calcium Phosphorus Magnesium Iron TIBC Ferritin Total Bilirubin AST ALT Alkaline Phosphatase Total Creatine Kinase Troponin T C-Reactive Protein Total Protein Albumin Triglycerides HDL Cholesterol Miscellaneous Test Crossmatch 08/15/17 08/16/17 08/16/17 09:10 09:50 09:50 WBC 31.1 H RBC 3.21 L Hgb 9.6 L Hct 29.3 L MCV MCH MCHC RDW 18.1 H Plt Count 642 H Lymph % (Auto) [place] % (Auto) [place] # Seg Neutrophils % Seg Neuts % (Manual) 74.0 H Lymphocytes % (Manual) 4.0 L Monocytes % (Manual) 9.0 H Nucleated RBC % Seg Neutrophils # Seg Neutrophils # Man 23.0 H Lymphocytes # (Manual) Monocytes # (Manual) 2.8 H Eosinophils # (Manual) Basophils # (Manual) PT INR POC ABG pH ABG pH POC ABG pCO2 POC ABG pO2 ABG pO2 ABG O2 Saturation ABG Base Excess ABG Hemoglobin Oxyhemoglobin Sodium 136 L 136 L Potassium 3.5 L Chloride 97.6 L 94.9 L Carbon Dioxide BUN 27 H 28 H Creatinine 5.6 H 5.5 H Glucose 117 H 103 H POC Glucose Calcium Phosphorus Magnesium Iron TIBC Ferritin Total Bilirubin AST ALT Alkaline Phosphatase 137 H Total Creatine Kinase Troponin T C-Reactive Protein Total Protein 5.4 L Albumin 1.5 L Triglycerides HDL Cholesterol Miscellaneous Test Crossmatch 08/16/17 08/17/17 08/17/17 09:50 05:00 06:26 WBC RBC Hgb Hct MCV MCH MCHC RDW Plt Count Lymph % (Auto) [place] % (Auto) [place] # Seg Neutrophils % Seg Neuts % (Manual) Lymphocytes % (Manual) Monocytes % (Manual) Nucleated RBC % Seg Neutrophils # Seg Neutrophils # Man Lymphocytes # (Manual) Monocytes # (Manual) Eosinophils # (Manual) Basophils # (Manual) PT INR POC ABG pH ABG pH POC ABG pCO2 POC ABG pO2 ABG pO2 ABG O2 Saturation ABG Base Excess ABG Hemoglobin Oxyhemoglobin Sodium 134 L Potassium 3.0 L Chloride 97.8 L Carbon Dioxide BUN 30 H Creatinine 5.3 H Glucose 147 H POC Glucose 165 H Calcium 7.5 L Phosphorus Magnesium Iron TIBC Ferritin Total Bilirubin AST ALT Alkaline Phosphatase Total Creatine Kinase Troponin T C-Reactive Protein 32.30 H Total Protein Albumin Triglycerides HDL Cholesterol Miscellaneous Test Crossmatch 08/17/17 08/17/17 08/17/17 10:56 11:20 11:20 WBC 39.1 H RBC 3.10 L Hgb 9.2 L Hct 28.6 L MCV MCH MCHC RDW 18.3 H Plt Count 580 H Lymph % (Auto) [place] % (Auto) [place] # Seg Neutrophils % Seg Neuts % (Manual) 89.5 H Lymphocytes % (Manual) 3.5 L Monocytes % (Manual) Nucleated RBC % Seg Neutrophils # Seg Neutrophils # Man 35.0 H Lymphocytes # (Manual) Monocytes # (Manual) 2.5 H Eosinophils # (Manual) Basophils # (Manual) 0.2 H PT INR POC ABG pH 7.464 H ABG pH POC ABG pCO2 34.1 L POC ABG pO2 75 L ABG pO2 ABG O2 Saturation ABG Base Excess ABG Hemoglobin Oxyhemoglobin Sodium Potassium Chloride Carbon Dioxide BUN Creatinine Glucose POC Glucose Calcium Phosphorus Magnesium Iron TIBC Ferritin Total Bilirubin AST ALT Alkaline Phosphatase Total Creatine Kinase Troponin T C-Reactive Protein Total Protein Albumin Triglycerides HDL Cholesterol Miscellaneous Test Flexitest 1 H Crossmatch 08/17/17 08/17/17 08/17/17 11:20 16:57 20:20 WBC 34.4 H RBC 2.81 L Hgb 8.4 L Hct 26.0 L MCV MCH MCHC RDW 17.8 H Plt Count 455 H Lymph % (Auto) [place] % (Auto) [place] # Seg Neutrophils % Seg Neuts % (Manual) Lymphocytes % (Manual) 3.5 L Monocytes % (Manual) Nucleated RBC % 5.0 H Seg Neutrophils # Seg Neutrophils # Man 16.5 H Lymphocytes # (Manual) Monocytes # (Manual) 1.0 H Eosinophils # (Manual) Basophils # (Manual) PT 16.0 H INR 1.29 H POC ABG pH ABG pH POC ABG pCO2 POC ABG pO2 ABG pO2 ABG O2 Saturation ABG Base Excess ABG Hemoglobin Oxyhemoglobin Sodium 135 L Potassium 2.9 L* Chloride Carbon Dioxide 20 L BUN 32 H Creatinine 5.4 H Glucose 129 H POC Glucose Calcium 7.5 L Phosphorus Magnesium 1.50 L Iron TIBC Ferritin Total Bilirubin AST 85 H ALT Alkaline Phosphatase Total Creatine Kinase Troponin T C-Reactive Protein Total Protein 4.0 L D Albumin 1.6 L Triglycerides HDL Cholesterol Miscellaneous Test Crossmatch 08/17/17 08/17/17 08/18/17 20:54 23:47 04:26 WBC RBC Hgb Hct MCV MCH MCHC RDW Plt Count Lymph % (Auto) [place] % (Auto) [place] # Seg Neutrophils % Seg Neuts % (Manual) Lymphocytes % (Manual) Monocytes % (Manual) Nucleated RBC % Seg Neutrophils # Seg Neutrophils # Man Lymphocytes # (Manual) Monocytes # (Manual) Eosinophils # (Manual) Basophils # (Manual) PT INR POC ABG pH 7.557 H ABG pH POC ABG pCO2 23.1 L 29.0 L POC ABG pO2 187 H 148 H ABG pO2 ABG O2 Saturation ABG Base Excess ABG Hemoglobin Oxyhemoglobin Sodium Potassium Chloride Carbon Dioxide BUN Creatinine Glucose POC Glucose 188 H Calcium Phosphorus Magnesium Iron TIBC Ferritin Total Bilirubin AST ALT Alkaline Phosphatase Total Creatine Kinase Troponin T C-Reactive Protein Total Protein Albumin Triglycerides HDL Cholesterol Miscellaneous Test Crossmatch 08/18/17 08/18/17 08/18/17 05:51 11:44 17:07 WBC RBC Hgb Hct MCV MCH MCHC RDW Plt Count Lymph % (Auto) [place] % (Auto) [place] # Seg Neutrophils % Seg Neuts % (Manual) Lymphocytes % (Manual) Monocytes % (Manual) Nucleated RBC % Seg Neutrophils # Seg Neutrophils # Man Lymphocytes # (Manual) Monocytes # (Manual) Eosinophils # (Manual) Basophils # (Manual) PT INR POC ABG pH ABG pH POC ABG pCO2 POC ABG pO2 ABG pO2 ABG O2 Saturation ABG Base Excess ABG Hemoglobin Oxyhemoglobin Sodium Potassium Chloride Carbon Dioxide BUN Creatinine Glucose POC Glucose 202 H 195 H 182 H Calcium Phosphorus Magnesium Iron TIBC Ferritin Total Bilirubin AST ALT Alkaline Phosphatase Total Creatine Kinase Troponin T C-Reactive Protein Total Protein Albumin Triglycerides HDL Cholesterol Miscellaneous Test Crossmatch 08/18/17 08/18/17 08/18/17 23:45 Unknown Unknown WBC 39.0 H RBC 2.84 L Hgb 8.4 L Hct 26.5 L MCV MCH MCHC RDW 18.0 H Plt Count 476 H Lymph % (Auto) [place] % (Auto) [place] # Seg Neutrophils % Seg Neuts % (Manual) Lymphocytes % (Manual) 7.0 L Monocytes % (Manual) 10.0 H Nucleated RBC % 3.0 H Seg Neutrophils # Seg Neutrophils # Man 15.6 H Lymphocytes # (Manual) Monocytes # (Manual) 3.9 H Eosinophils # (Manual) Basophils # (Manual) PT INR POC ABG pH ABG pH POC ABG pCO2 POC ABG pO2 ABG pO2 ABG O2 Saturation ABG Base Excess ABG Hemoglobin Oxyhemoglobin Sodium Potassium Chloride Carbon Dioxide 19 L BUN 34 H Creatinine 5.6 H Glucose 201 H POC Glucose 163 H Calcium 7.8 L Phosphorus 1.90 L D Magnesium 1.60 L Iron TIBC Ferritin Total Bilirubin AST ALT Alkaline Phosphatase Total Creatine Kinase Troponin T C-Reactive Protein Total Protein Albumin Triglycerides HDL Cholesterol Miscellaneous Test Crossmatch 08/19/17 08/19/17 08/19/17 04:18 05:00 05:00 WBC 40.0 H RBC 2.46 L Hgb 7.3 L Hct 22.6 L MCV MCH MCHC RDW 18.1 H Plt Count Lymph % (Auto) [place] % (Auto) [place] # Seg Neutrophils % Seg Neuts % (Manual) Lymphocytes % (Manual) 8.0 L Monocytes % (Manual) Nucleated RBC % 2.0 H Seg Neutrophils # Seg Neutrophils # Man 16.4 H Lymphocytes # (Manual) Monocytes # (Manual) 1.2 H Eosinophils # (Manual) 1.2 H Basophils # (Manual) PT INR POC ABG pH 7.463 H ABG pH POC ABG pCO2 29.7 L POC ABG pO2 134 H ABG pO2 ABG O2 Saturation ABG Base Excess ABG Hemoglobin Oxyhemoglobin Sodium Potassium 5.1 H D Chloride Carbon Dioxide 20 L BUN 40 H Creatinine 5.3 H Glucose 128 H POC Glucose Calcium 7.8 L Phosphorus 1.90 L Magnesium Iron TIBC Ferritin Total Bilirubin AST ALT Alkaline Phosphatase Total Creatine Kinase Troponin T C-Reactive Protein Total Protein Albumin Triglycerides HDL Cholesterol Miscellaneous Test Crossmatch 08/19/17 08/19/17 08/19/17 05:19 07:37 09:52 WBC 45.0 H* RBC 2.50 L Hgb 7.5 L Hct 24.5 L MCV 98 H MCH MCHC RDW 18.4 H Plt Count Lymph % (Auto) [place] % (Auto) [place] # Seg Neutrophils % Seg Neuts % (Manual) 81.5 H Lymphocytes % (Manual) 4.0 L Monocytes % (Manual) Nucleated RBC % 1.0 H Seg Neutrophils # Seg Neutrophils # Man 36.7 H Lymphocytes # (Manual) Monocytes # (Manual) Eosinophils # (Manual) Basophils # (Manual) PT INR POC ABG pH ABG pH POC ABG pCO2 POC ABG pO2 ABG pO2 ABG O2 Saturation ABG Base Excess ABG Hemoglobin Oxyhemoglobin Sodium Potassium Chloride Carbon Dioxide BUN Creatinine Glucose POC Glucose 142 H Calcium Phosphorus Magnesium Iron TIBC Ferritin Total Bilirubin AST ALT Alkaline Phosphatase Total Creatine Kinase Troponin T C-Reactive Protein 34.20 H Total Protein Albumin Triglycerides HDL Cholesterol Miscellaneous Test Crossmatch 08/19/17 08/19/17 08/20/17 11:16 18:12 00:35 WBC RBC Hgb Hct MCV MCH MCHC RDW Plt Count Lymph % (Auto) [place] % (Auto) [place] # Seg Neutrophils % Seg Neuts % (Manual) Lymphocytes % (Manual) Monocytes % (Manual) Nucleated RBC % Seg Neutrophils # Seg Neutrophils # Man Lymphocytes # (Manual) Monocytes # (Manual) Eosinophils # (Manual) Basophils # (Manual) PT INR POC ABG pH ABG pH POC ABG pCO2 POC ABG pO2 ABG pO2 ABG O2 Saturation ABG Base Excess ABG Hemoglobin Oxyhemoglobin Sodium Potassium Chloride Carbon Dioxide BUN Creatinine Glucose POC Glucose 143 H 137 H 164 H Calcium Phosphorus Magnesium Iron TIBC Ferritin Total Bilirubin AST ALT Alkaline Phosphatase Total Creatine Kinase Troponin T C-Reactive Protein Total Protein Albumin Triglycerides HDL Cholesterol Miscellaneous Test Crossmatch 09/26/17 09/26/17 09/26/17 03:20 03:20 04:00 WBC 48.0 H* RBC 2.55 L Hgb 7.6 L Hct 23.4 L MCV MCH MCHC RDW 18.4 H Plt Count Lymph % (Auto) [place] % (Auto) [place] # Seg Neutrophils % Seg Neuts % (Manual) 90.0 H Lymphocytes % (Manual) 3.0 L Monocytes % (Manual) Nucleated RBC % Seg Neutrophils # Seg Neutrophils # Man 43.2 H Lymphocytes # (Manual) Monocytes # (Manual) 1.4 H Eosinophils # (Manual) 0.5 H Basophils # (Manual) PT INR POC ABG pH 7.499 H ABG pH POC ABG pCO2 29.1 L POC ABG pO2 ABG pO2 ABG O2 Saturation ABG Base Excess ABG Hemoglobin Oxyhemoglobin Sodium 135 L Potassium Chloride Carbon Dioxide BUN 28 H Creatinine 4.0 H Glucose 140 H POC Glucose Calcium 8.0 L Phosphorus 1.70 L Magnesium 1.60 L Iron TIBC Ferritin Total Bilirubin AST ALT Alkaline Phosphatase Total Creatine Kinase Troponin T C-Reactive Protein Total Protein Albumin Triglycerides HDL Cholesterol Miscellaneous Test Crossmatch 08/20/17 08/20/17 08/20/17 05:02 12:05 13:12 WBC RBC Hgb Hct MCV MCH MCHC RDW Plt Count Lymph % (Auto) [place] % (Auto) [place] # Seg Neutrophils % Seg Neuts % (Manual) Lymphocytes % (Manual) Monocytes % (Manual) Nucleated RBC % Seg Neutrophils # Seg Neutrophils # Man Lymphocytes # (Manual) Monocytes # (Manual) Eosinophils # (Manual) Basophils # (Manual) PT INR POC ABG pH 7.537 H ABG pH POC ABG pCO2 27.9 L POC ABG pO2 79 L ABG pO2 ABG O2 Saturation ABG Base Excess ABG Hemoglobin Oxyhemoglobin Sodium Potassium Chloride Carbon Dioxide BUN Creatinine Glucose POC Glucose 158 H 203 H Calcium Phosphorus Magnesium Iron TIBC Ferritin Total Bilirubin AST ALT Alkaline Phosphatase Total Creatine Kinase Troponin T C-Reactive Protein Total Protein Albumin Triglycerides HDL Cholesterol Miscellaneous Test Crossmatch 08/20/17 08/21/17 08/21/17 17:13 00:47 03:14 WBC RBC Hgb Hct MCV MCH MCHC RDW Plt Count Lymph % (Auto) [place] % (Auto) [place] # Seg Neutrophils % Seg Neuts % (Manual) Lymphocytes % (Manual) Monocytes % (Manual) Nucleated RBC % Seg Neutrophils # Seg Neutrophils # Man Lymphocytes # (Manual) Monocytes # (Manual) Eosinophils # (Manual) Basophils # (Manual) PT INR POC ABG pH 7.481 H ABG pH POC ABG pCO2 29.6 L POC ABG pO2 ABG pO2 ABG O2 Saturation ABG Base Excess ABG Hemoglobin Oxyhemoglobin Sodium Potassium Chloride Carbon Dioxide BUN Creatinine Glucose POC Glucose 188 H 109 H Calcium Phosphorus Magnesium Iron TIBC Ferritin Total Bilirubin AST ALT Alkaline Phosphatase Total Creatine Kinase Troponin T C-Reactive Protein Total Protein Albumin Triglycerides HDL Cholesterol Miscellaneous Test Crossmatch 08/21/17 08/21/17 08/21/17 05:05 06:50 06:50 WBC 44.7 H* RBC 2.41 L Hgb 7.1 L Hct 22.1 L MCV MCH MCHC RDW 18.3 H Plt Count Lymph % (Auto) [place] % (Auto) [place] # Seg Neutrophils % Seg Neuts % (Manual) 89.0 H Lymphocytes % (Manual) 0 L Monocytes % (Manual) Nucleated RBC % 1.0 H Seg Neutrophils # Seg Neutrophils # Man 39.8 H Lymphocytes # (Manual) 0.0 L Monocytes # (Manual) 1.3 H Eosinophils # (Manual) Basophils # (Manual) PT INR POC ABG pH ABG pH POC ABG pCO2 POC ABG pO2 ABG pO2 ABG O2 Saturation ABG Base Excess ABG Hemoglobin Oxyhemoglobin Sodium 135 L Potassium Chloride Carbon Dioxide BUN 39 H Creatinine 4.4 H Glucose 147 H POC Glucose 166 H Calcium 8.1 L Phosphorus Magnesium Iron TIBC Ferritin Total Bilirubin AST ALT < 5 L Alkaline Phosphatase 164 H Total Creatine Kinase Troponin T C-Reactive Protein Total Protein 4.7 L Albumin 1.4 L Triglycerides HDL Cholesterol Miscellaneous Test Crossmatch 08/21/17 08/21/17 08/21/17 08:00 12:21 17:02 WBC RBC Hgb Hct MCV MCH MCHC RDW Plt Count Lymph % (Auto) [place] % (Auto) [place] # Seg Neutrophils % Seg Neuts % (Manual) Lymphocytes % (Manual) Monocytes % (Manual) Nucleated RBC % Seg Neutrophils # Seg Neutrophils # Man Lymphocytes # (Manual) Monocytes # (Manual) Eosinophils # (Manual) Basophils # (Manual) PT INR POC ABG pH ABG pH POC ABG pCO2 POC ABG pO2 ABG pO2 ABG O2 Saturation ABG Base Excess ABG Hemoglobin Oxyhemoglobin Sodium Potassium Chloride Carbon Dioxide BUN Creatinine Glucose POC Glucose 147 H 135 H Calcium Phosphorus Magnesium Iron TIBC Ferritin Total Bilirubin AST ALT Alkaline Phosphatase Total Creatine Kinase Troponin T C-Reactive Protein Total Protein Albumin Triglycerides HDL Cholesterol Miscellaneous Test Crossmatch See Detail 08/21/17 08/22/17 08/22/17 23:38 03:40 03:40 WBC 42.5 H* RBC 2.88 L Hgb 8.5 L Hct 26.3 L MCV MCH MCHC RDW 17.9 H Plt Count Lymph % (Auto) [place] % (Auto) [place] # Seg Neutrophils % Seg Neuts % (Manual) Lymphocytes % (Manual) 5.0 L Monocytes % (Manual) Nucleated RBC % Seg Neutrophils # Seg Neutrophils # Man 19.6 H Lymphocytes # (Manual) Monocytes # (Manual) 2.6 H Eosinophils # (Manual) Basophils # (Manual) PT INR POC ABG pH ABG pH POC ABG pCO2 POC ABG pO2 ABG pO2 ABG O2 Saturation ABG Base Excess ABG Hemoglobin Oxyhemoglobin Sodium Potassium 3.3 L D Chloride Carbon Dioxide BUN 27 H Creatinine 2.9 H Glucose 144 H POC Glucose 251 H Calcium 8.0 L Phosphorus 2.40 L Magnesium Iron TIBC Ferritin Total Bilirubin AST ALT Alkaline Phosphatase Total Creatine Kinase Troponin T C-Reactive Protein Total Protein Albumin Triglycerides HDL Cholesterol Miscellaneous Test Crossmatch 08/22/17 08/22/17 08/22/17 06:37 08:50 11:25 WBC RBC Hgb Hct MCV MCH MCHC RDW Plt Count Lymph % (Auto) [place] % (Auto) [place] # Seg Neutrophils % Seg Neuts % (Manual) Lymphocytes % (Manual) Monocytes % (Manual) Nucleated RBC % Seg Neutrophils # Seg Neutrophils # Man Lymphocytes # (Manual) Monocytes # (Manual) Eosinophils # (Manual) Basophils # (Manual) PT INR POC ABG pH ABG pH POC ABG pCO2 POC ABG pO2 ABG pO2 ABG O2 Saturation ABG Base Excess ABG Hemoglobin Oxyhemoglobin Sodium Potassium Chloride Carbon Dioxide BUN Creatinine Glucose POC Glucose 152 H 175 H Calcium Phosphorus Magnesium Iron TIBC Ferritin Total Bilirubin AST ALT Alkaline Phosphatase Total Creatine Kinase Troponin T C-Reactive Protein Total Protein Albumin Triglycerides HDL Cholesterol Miscellaneous Test Flexitest 1 H Crossmatch 08/22/17 08/22/17 08/22/17 16:25 17:56 23:03 WBC RBC Hgb Hct MCV MCH MCHC RDW Plt Count Lymph % (Auto) [place] % (Auto) [place] # Seg Neutrophils % Seg Neuts % (Manual) Lymphocytes % (Manual) Monocytes % (Manual) Nucleated RBC % Seg Neutrophils # Seg Neutrophils # Man Lymphocytes # (Manual) Monocytes # (Manual) Eosinophils # (Manual) Basophils # (Manual) PT INR POC ABG pH ABG pH POC ABG pCO2 POC ABG pO2 ABG pO2 ABG O2 Saturation ABG Base Excess ABG Hemoglobin Oxyhemoglobin Sodium Potassium Chloride Carbon Dioxide BUN Creatinine Glucose POC Glucose 232 H 192 H Calcium Phosphorus Magnesium Iron TIBC Ferritin Total Bilirubin AST ALT Alkaline Phosphatase Total Creatine Kinase Troponin T C-Reactive Protein 30.70 H Total Protein Albumin Triglycerides HDL Cholesterol Miscellaneous Test Crossmatch 08/23/17 08/23/17 08/23/17 05:36 08:50 12:14 WBC RBC Hgb Hct MCV MCH MCHC RDW Plt Count Lymph % (Auto) [place] % (Auto) [place] # Seg Neutrophils % Seg Neuts % (Manual) Lymphocytes % (Manual) Monocytes % (Manual) Nucleated RBC % Seg Neutrophils # Seg Neutrophils # Man Lymphocytes # (Manual) Monocytes # (Manual) Eosinophils # (Manual) Basophils # (Manual) PT INR POC ABG pH ABG pH POC ABG pCO2 POC ABG pO2 ABG pO2 ABG O2 Saturation ABG Base Excess ABG Hemoglobin Oxyhemoglobin Sodium Potassium Chloride 107.1 H Carbon Dioxide BUN 49 H Creatinine 3.3 H Glucose 172 H POC Glucose 206 H 238 H Calcium Phosphorus Magnesium 2.40 H Iron TIBC Ferritin Total Bilirubin AST ALT Alkaline Phosphatase Total Creatine Kinase Troponin T C-Reactive Protein Total Protein Albumin Triglycerides HDL Cholesterol Miscellaneous Test Crossmatch 08/23/17 08/23/17 08/24/17 17:21 23:13 04:00 WBC 34.2 H RBC 2.86 L Hgb 8.4 L Hct 25.9 L MCV MCH MCHC RDW 17.9 H Plt Count Lymph % (Auto) [place] % (Auto) [place] # Seg Neutrophils % Seg Neuts % (Manual) 85.0 H Lymphocytes % (Manual) 0.5 L Monocytes % (Manual) Nucleated RBC % 1.0 H Seg Neutrophils # Seg Neutrophils # Man 29.1 H Lymphocytes # (Manual) 0.2 L Monocytes # (Manual) 2.4 H Eosinophils # (Manual) Basophils # (Manual) PT INR POC ABG pH ABG pH POC ABG pCO2 POC ABG pO2 ABG pO2 ABG O2 Saturation ABG Base Excess ABG Hemoglobin Oxyhemoglobin Sodium Potassium Chloride Carbon Dioxide BUN Creatinine Glucose POC Glucose 226 H 183 H Calcium Phosphorus Magnesium Iron TIBC Ferritin Total Bilirubin AST ALT Alkaline Phosphatase Total Creatine Kinase Troponin T C-Reactive Protein Total Protein Albumin Triglycerides HDL Cholesterol Miscellaneous Test Crossmatch 08/24/17 08/24/17 08/24/17 05:06 09:30 12:04 WBC RBC Hgb Hct MCV MCH MCHC RDW Plt Count Lymph % (Auto) [place] % (Auto) [place] # Seg Neutrophils % Seg Neuts % (Manual) Lymphocytes % (Manual) Monocytes % (Manual) Nucleated RBC % Seg Neutrophils # Seg Neutrophils # Man Lymphocytes # (Manual) Monocytes # (Manual) Eosinophils # (Manual) Basophils # (Manual) PT INR POC ABG pH ABG pH POC ABG pCO2 POC ABG pO2 ABG pO2 ABG O2 Saturation ABG Base Excess ABG Hemoglobin Oxyhemoglobin Sodium Potassium Chloride Carbon Dioxide BUN 46 H Creatinine 2.5 H Glucose 176 H POC Glucose 201 H 181 H Calcium Phosphorus Magnesium Iron TIBC Ferritin Total Bilirubin AST ALT Alkaline Phosphatase Total Creatine Kinase Troponin T C-Reactive Protein Total Protein Albumin Triglycerides HDL Cholesterol Miscellaneous Test Crossmatch 08/24/17 08/24/17 08/25/17 18:04 23:05 05:05 WBC RBC Hgb Hct MCV MCH MCHC RDW Plt Count Lymph % (Auto) [place] % (Auto) [place] # Seg Neutrophils % Seg Neuts % (Manual) Lymphocytes % (Manual) Monocytes % (Manual) Nucleated RBC % Seg Neutrophils # Seg Neutrophils # Man Lymphocytes # (Manual) Monocytes # (Manual) Eosinophils # (Manual) Basophils # (Manual) PT INR POC ABG pH ABG pH POC ABG pCO2 POC ABG pO2 ABG pO2 ABG O2 Saturation ABG Base Excess ABG Hemoglobin Oxyhemoglobin Sodium Potassium Chloride Carbon Dioxide BUN Creatinine Glucose POC Glucose 189 H 175 H 190 H Calcium Phosphorus Magnesium Iron TIBC Ferritin Total Bilirubin AST ALT Alkaline Phosphatase Total Creatine Kinase Troponin T C-Reactive Protein Total Protein Albumin Triglycerides HDL Cholesterol Miscellaneous Test Crossmatch 08/25/17 08/25/17 08/26/17 07:02 11:53 05:30 WBC 33.5 H RBC 2.47 L Hgb 7.3 L Hct 23.0 L MCV MCH MCHC RDW 21.3 H Plt Count Lymph % (Auto) [place] % (Auto) [place] # Seg Neutrophils % Seg Neuts % (Manual) 92.0 H Lymphocytes % (Manual) 1.0 L Monocytes % (Manual) Nucleated RBC % Seg Neutrophils # Seg Neutrophils # Man 30.8 H Lymphocytes # (Manual) 0.3 L Monocytes # (Manual) Eosinophils # (Manual) Basophils # (Manual) PT INR POC ABG pH ABG pH POC ABG pCO2 POC ABG pO2 ABG pO2 ABG O2 Saturation ABG Base Excess ABG Hemoglobin Oxyhemoglobin Sodium Potassium Chloride Carbon Dioxide BUN 32 H Creatinine 5.0 H D Glucose 117 H POC Glucose 191 H Calcium 8.0 L Phosphorus Magnesium Iron TIBC Ferritin Total Bilirubin AST ALT Alkaline Phosphatase Total Creatine Kinase Troponin T C-Reactive Protein Total Protein Albumin Triglycerides HDL Cholesterol Miscellaneous Test Crossmatch 08/26/17 08/26/17 08/26/17 05:30 06:44 13:26 WBC RBC Hgb Hct MCV MCH MCHC RDW Plt Count Lymph % (Auto) [place] % (Auto) [place] # Seg Neutrophils % Seg Neuts % (Manual) Lymphocytes % (Manual) Monocytes % (Manual) Nucleated RBC % Seg Neutrophils # Seg Neutrophils # Man Lymphocytes # (Manual) Monocytes # (Manual) Eosinophils # (Manual) Basophils # (Manual) PT INR POC ABG pH ABG pH POC ABG pCO2 POC ABG pO2 ABG pO2 ABG O2 Saturation ABG Base Excess ABG Hemoglobin Oxyhemoglobin Sodium Potassium 5.2 H Chloride Carbon Dioxide BUN 80 H Creatinine 3.4 H Glucose 193 H POC Glucose 232 H 207 H Calcium 8.3 L Phosphorus 6.80 H D Magnesium 2.60 H Iron TIBC Ferritin Total Bilirubin AST 135 H ALT Alkaline Phosphatase 211 H Total Creatine Kinase Troponin T C-Reactive Protein Total Protein 4.8 L Albumin 2.0 L Triglycerides HDL Cholesterol Miscellaneous Test Crossmatch 08/27/17 08/27/17 08/27/17 01:08 06:20 06:20 WBC 35.0 H RBC 2.75 L Hgb 8.4 L Hct 25.1 L MCV MCH MCHC RDW 21.8 H Plt Count Lymph % (Auto) [place] % (Auto) [place] # Seg Neutrophils % Seg Neuts % (Manual) Lymphocytes % (Manual) 4.5 L Monocytes % (Manual) Nucleated RBC % Seg Neutrophils # Seg Neutrophils # Man 31.9 H Lymphocytes # (Manual) Monocytes # (Manual) 1.2 H Eosinophils # (Manual) Basophils # (Manual) PT INR POC ABG pH ABG pH POC ABG pCO2 POC ABG pO2 ABG pO2 ABG O2 Saturation ABG Base Excess ABG Hemoglobin Oxyhemoglobin Sodium Potassium Chloride Carbon Dioxide BUN 61 H Creatinine 2.6 H Glucose 184 H POC Glucose 146 H Calcium Phosphorus 4.90 H D Magnesium Iron TIBC Ferritin Total Bilirubin AST ALT Alkaline Phosphatase Total Creatine Kinase Troponin T C-Reactive Protein Total Protein Albumin Triglycerides HDL Cholesterol Miscellaneous Test Crossmatch 08/27/17 08/27/17 08/27/17 07:01 09:17 12:52 WBC RBC Hgb Hct MCV MCH MCHC RDW Plt Count Lymph % (Auto) [place] % (Auto) [place] # Seg Neutrophils % Seg Neuts % (Manual) Lymphocytes % (Manual) Monocytes % (Manual) Nucleated RBC % Seg Neutrophils # Seg Neutrophils # Man Lymphocytes # (Manual) Monocytes # (Manual) Eosinophils # (Manual) Basophils # (Manual) PT INR POC ABG pH ABG pH POC ABG pCO2 POC ABG pO2 ABG pO2 ABG O2 Saturation ABG Base Excess ABG Hemoglobin Oxyhemoglobin Sodium Potassium Chloride Carbon Dioxide BUN Creatinine Glucose POC Glucose 165 H 198 H 218 H Calcium Phosphorus Magnesium Iron TIBC Ferritin Total Bilirubin AST ALT Alkaline Phosphatase Total Creatine Kinase Troponin T C-Reactive Protein Total Protein Albumin Triglycerides HDL Cholesterol Miscellaneous Test Crossmatch 08/27/17 08/28/17 08/28/17 17:27 02:13 06:46 WBC RBC Hgb Hct MCV MCH MCHC RDW Plt Count Lymph % (Auto) [place] % (Auto) [place] # Seg Neutrophils % Seg Neuts % (Manual) Lymphocytes % (Manual) Monocytes % (Manual) Nucleated RBC % Seg Neutrophils # Seg Neutrophils # Man Lymphocytes # (Manual) Monocytes # (Manual) Eosinophils # (Manual) Basophils # (Manual) PT INR POC ABG pH ABG pH POC ABG pCO2 POC ABG pO2 ABG pO2 ABG O2 Saturation ABG Base Excess ABG Hemoglobin Oxyhemoglobin Sodium Potassium Chloride Carbon Dioxide BUN Creatinine Glucose POC Glucose 151 H 155 H 230 H Calcium Phosphorus Magnesium Iron TIBC Ferritin Total Bilirubin AST ALT Alkaline Phosphatase Total Creatine Kinase Troponin T C-Reactive Protein Total Protein Albumin Triglycerides HDL Cholesterol Miscellaneous Test Crossmatch 1008/28/17 08/28/17 06:53 06:53 08:19 WBC 31.1 H RBC 2.26 L Hgb 6.8 L Hct 20.9 L MCV MCH MCHC RDW 21.7 H Plt Count Lymph % (Auto) [place] % (Auto) [place] # Seg Neutrophils % Seg Neuts % (Manual) 83.0 H Lymphocytes % (Manual) 4.0 L Monocytes % (Manual) Nucleated RBC % Seg Neutrophils # Seg Neutrophils # Man 25.8 H Lymphocytes # (Manual) Monocytes # (Manual) Eosinophils # (Manual) Basophils # (Manual) PT INR POC ABG pH ABG pH POC ABG pCO2 POC ABG pO2 ABG pO2 ABG O2 Saturation ABG Base Excess ABG Hemoglobin Oxyhemoglobin Sodium Potassium Chloride Carbon Dioxide BUN 81 H Creatinine 3.4 H Glucose 218 H POC Glucose 239 H Calcium Phosphorus 4.90 H Magnesium Iron TIBC Ferritin Total Bilirubin AST ALT Alkaline Phosphatase Total Creatine Kinase Troponin T C-Reactive Protein Total Protein Albumin Triglycerides HDL Cholesterol Miscellaneous Test Crossmatch 08/28/17 08/28/17 08/28/17 11:56 13:05 13:29 WBC RBC Hgb Hct MCV MCH MCHC RDW Plt Count Lymph % (Auto) [place] % (Auto) [place] # Seg Neutrophils % Seg Neuts % (Manual) Lymphocytes % (Manual) Monocytes % (Manual) Nucleated RBC % Seg Neutrophils # Seg Neutrophils # Man Lymphocytes # (Manual) Monocytes # (Manual) Eosinophils # (Manual) Basophils # (Manual) PT 16.7 H INR 1.29 H POC ABG pH ABG pH POC ABG pCO2 POC ABG pO2 338 H ABG pO2 ABG O2 Saturation ABG Base Excess ABG Hemoglobin Oxyhemoglobin Sodium Potassium Chloride Carbon Dioxide BUN Creatinine Glucose POC Glucose Calcium Phosphorus Magnesium Iron TIBC Ferritin Total Bilirubin AST ALT Alkaline Phosphatase Total Creatine Kinase Troponin T C-Reactive Protein Total Protein Albumin Triglycerides HDL Cholesterol Miscellaneous Test Crossmatch See Detail 08/28/17 08/28/17 08/29/17 16:22 19:20 04:24 WBC RBC Hgb Hct MCV MCH MCHC RDW Plt Count Lymph % (Auto) [place] % (Auto) [place] # Seg Neutrophils % Seg Neuts % (Manual) Lymphocytes % (Manual) Monocytes % (Manual) Nucleated RBC % Seg Neutrophils # Seg Neutrophils # Man Lymphocytes # (Manual) Monocytes # (Manual) Eosinophils # (Manual) Basophils # (Manual) PT INR POC ABG pH 7.469 H ABG pH POC ABG pCO2 POC ABG pO2 240 H ABG pO2 ABG O2 Saturation ABG Base Excess ABG Hemoglobin Oxyhemoglobin Sodium Potassium Chloride Carbon Dioxide BUN Creatinine Glucose POC Glucose 209 H 195 H Calcium Phosphorus Magnesium Iron TIBC Ferritin Total Bilirubin AST ALT Alkaline Phosphatase Total Creatine Kinase Troponin T C-Reactive Protein Total Protein Albumin Triglycerides HDL Cholesterol Miscellaneous Test Crossmatch 08/29/17 08/29/17 08/29/17 04:30 04:30 12:07 WBC 44.9 H* RBC Hgb Hct MCV MCH MCHC RDW 23.1 H Plt Count Lymph % (Auto) [place] % (Auto) [place] # Seg Neutrophils % Seg Neuts % (Manual) 38.0 L Lymphocytes % (Manual) 10.0 L Monocytes % (Manual) 10.0 H Nucleated RBC % 6.0 H Seg Neutrophils # Seg Neutrophils # Man 17.1 H Lymphocytes # (Manual) Monocytes # (Manual) 4.5 H Eosinophils # (Manual) Basophils # (Manual) PT INR POC ABG pH ABG pH POC ABG pCO2 POC ABG pO2 ABG pO2 ABG O2 Saturation ABG Base Excess ABG Hemoglobin Oxyhemoglobin Sodium Potassium Chloride Carbon Dioxide BUN 61 H Creatinine 2.4 H Glucose 226 H POC Glucose 200 H Calcium Phosphorus Magnesium Iron TIBC Ferritin Total Bilirubin AST ALT Alkaline Phosphatase Total Creatine Kinase Troponin T C-Reactive Protein Total Protein Albumin Triglycerides HDL Cholesterol Miscellaneous Test Crossmatch 08/29/17 08/29/17 08/29/17 12:30 12:30 17:23 WBC RBC Hgb Hct MCV MCH MCHC RDW Plt Count Lymph % (Auto) [place] % (Auto) [place] # Seg Neutrophils % Seg Neuts % (Manual) Lymphocytes % (Manual) Monocytes % (Manual) Nucleated RBC % Seg Neutrophils # Seg Neutrophils # Man Lymphocytes # (Manual) Monocytes # (Manual) Eosinophils # (Manual) Basophils # (Manual) PT INR POC ABG pH ABG pH POC ABG pCO2 POC ABG pO2 ABG pO2 ABG O2 Saturation ABG Base Excess ABG Hemoglobin Oxyhemoglobin Sodium Potassium Chloride Carbon Dioxide BUN Creatinine Glucose POC Glucose 270 H Calcium Phosphorus Magnesium Iron TIBC Ferritin Total Bilirubin AST ALT Alkaline Phosphatase Total Creatine Kinase Troponin T C-Reactive Protein 19.10 H Total Protein Albumin Triglycerides HDL Cholesterol Miscellaneous Test Flexitest 1 H Crossmatch 08/30/17 08/30/17 08/30/17 00:10 01:30 03:31 WBC RBC Hgb Hct MCV MCH MCHC RDW Plt Count Lymph % (Auto) [place] % (Auto) [place] # Seg Neutrophils % Seg Neuts % (Manual) Lymphocytes % (Manual) Monocytes % (Manual) Nucleated RBC % Seg Neutrophils # Seg Neutrophils # Man Lymphocytes # (Manual) Monocytes # (Manual) Eosinophils # (Manual) Basophils # (Manual) PT INR POC ABG pH 7.168 L 7.335 L ABG pH POC ABG pCO2 72.8 H POC ABG pO2 257 H 117 H ABG pO2 ABG O2 Saturation ABG Base Excess ABG Hemoglobin Oxyhemoglobin Sodium Potassium Chloride Carbon Dioxide BUN Creatinine Glucose POC Glucose 245 H Calcium Phosphorus Magnesium Iron TIBC Ferritin Total Bilirubin AST ALT Alkaline Phosphatase Total Creatine Kinase Troponin T C-Reactive Protein Total Protein Albumin Triglycerides HDL Cholesterol Miscellaneous Test Crossmatch 08/30/17 08/30/17 08/30/17 05:20 05:20 05:20 WBC 40.9 H* RBC 3.64 L Hgb Hct MCV MCH MCHC RDW 24.3 H Plt Count Lymph % (Auto) [place] % (Auto) [place] # Seg Neutrophils % Seg Neuts % (Manual) 80.0 H Lymphocytes % (Manual) 3.0 L Monocytes % (Manual) Nucleated RBC % 1.0 H Seg Neutrophils # Seg Neutrophils # Man 32.7 H Lymphocytes # (Manual) Monocytes # (Manual) Eosinophils # (Manual) Basophils # (Manual) PT INR POC ABG pH ABG pH POC ABG pCO2 POC ABG pO2 ABG pO2 ABG O2 Saturation ABG Base Excess ABG Hemoglobin Oxyhemoglobin Sodium Potassium Chloride Carbon Dioxide BUN 83 H Creatinine 2.9 H Glucose 334 H POC Glucose 309 H Calcium Phosphorus Magnesium Iron TIBC Ferritin Total Bilirubin AST ALT Alkaline Phosphatase Total Creatine Kinase Troponin T C-Reactive Protein Total Protein Albumin Triglycerides HDL Cholesterol Miscellaneous Test Crossmatch 08/30/17 08/30/17 08/31/17 12:18 17:36 00:17 WBC RBC Hgb Hct MCV MCH MCHC RDW Plt Count Lymph % (Auto) [place] % (Auto) [place] # Seg Neutrophils % Seg Neuts % (Manual) Lymphocytes % (Manual) Monocytes % (Manual) Nucleated RBC % Seg Neutrophils # Seg Neutrophils # Man Lymphocytes # (Manual) Monocytes # (Manual) Eosinophils # (Manual) Basophils # (Manual) PT INR POC ABG pH ABG pH POC ABG pCO2 POC ABG pO2 ABG pO2 ABG O2 Saturation ABG Base Excess ABG Hemoglobin Oxyhemoglobin Sodium Potassium Chloride Carbon Dioxide BUN Creatinine Glucose POC Glucose 273 H 293 H 360 H Calcium Phosphorus Magnesium Iron TIBC Ferritin Total Bilirubin AST ALT Alkaline Phosphatase Total Creatine Kinase Troponin T C-Reactive Protein Total Protein Albumin Triglycerides HDL Cholesterol Miscellaneous Test Crossmatch 08/31/17 08/31/17 08/31/17 05:30 05:30 05:32 WBC 29.9 H RBC 2.89 L Hgb 8.2 L Hct 24.7 L D MCV MCH MCHC RDW 24.4 H Plt Count Lymph % (Auto) [place] % (Auto) [place] # Seg Neutrophils % Seg Neuts % (Manual) Lymphocytes % (Manual) 2.0 L Monocytes % (Manual) Nucleated RBC % 2.0 H Seg Neutrophils # Seg Neutrophils # Man 18.5 H Lymphocytes # (Manual) 0.6 L Monocytes # (Manual) 0.9 H Eosinophils # (Manual) Basophils # (Manual) PT INR POC ABG pH ABG pH POC ABG pCO2 POC ABG pO2 ABG pO2 ABG O2 Saturation ABG Base Excess ABG Hemoglobin Oxyhemoglobin Sodium Potassium Chloride Carbon Dioxide BUN 62 H Creatinine 2.2 H Glucose 245 H POC Glucose 257 H Calcium Phosphorus 2.10 L D Magnesium 1.60 L Iron TIBC Ferritin Total Bilirubin AST ALT Alkaline Phosphatase Total Creatine Kinase Troponin T C-Reactive Protein Total Protein Albumin Triglycerides HDL Cholesterol Miscellaneous Test Crossmatch 08/31/17 08/31/17 08/31/17 11:56 12:05 18:14 WBC 32.5 H RBC 3.19 L Hgb 8.8 L Hct 27.9 L MCV MCH MCHC RDW 24.9 H Plt Count Lymph % (Auto) [place] % (Auto) [place] # Seg Neutrophils % Seg Neuts % (Manual) Lymphocytes % (Manual) 1.0 L Monocytes % (Manual) 12.0 H Nucleated RBC % 1.0 H Seg Neutrophils # Seg Neutrophils # Man 13.3 H Lymphocytes # (Manual) 0.3 L Monocytes # (Manual) 3.9 H Eosinophils # (Manual) Basophils # (Manual) PT INR POC ABG pH ABG pH POC ABG pCO2 POC ABG pO2 ABG pO2 ABG O2 Saturation ABG Base Excess ABG Hemoglobin Oxyhemoglobin Sodium Potassium Chloride Carbon Dioxide BUN Creatinine Glucose POC Glucose 245 H Calcium Phosphorus Magnesium Iron TIBC Ferritin Total Bilirubin AST ALT Alkaline Phosphatase Total Creatine Kinase Troponin T C-Reactive Protein Total Protein Albumin Triglycerides HDL Cholesterol Miscellaneous Test Crossmatch See Detail 08/31/17 08/31/17 08/31/17 18:14 18:15 18:22 WBC RBC Hgb Hct MCV MCH MCHC RDW Plt Count Lymph % (Auto) [place] % (Auto) [place] # Seg Neutrophils % Seg Neuts % (Manual) Lymphocytes % (Manual) Monocytes % (Manual) Nucleated RBC % Seg Neutrophils # Seg Neutrophils # Man Lymphocytes # (Manual) Monocytes # (Manual) Eosinophils # (Manual) Basophils # (Manual) PT 15.1 H INR POC ABG pH ABG pH POC ABG pCO2 POC ABG pO2 ABG pO2 ABG O2 Saturation ABG Base Excess ABG Hemoglobin Oxyhemoglobin Sodium 136 L Potassium Chloride Carbon Dioxide 21 L BUN 69 H Creatinine 2.3 H Glucose 227 H POC Glucose 240 H Calcium Phosphorus 2.40 L Magnesium 1.50 L Iron TIBC Ferritin Total Bilirubin AST 143 H ALT 114 H Alkaline Phosphatase 267 H Total Creatine Kinase Troponin T C-Reactive Protein Total Protein 4.1 L Albumin 1.8 L Triglycerides HDL Cholesterol Miscellaneous Test Crossmatch 08/31/17 09/01/17 09/01/17 23:53 05:00 05:00 WBC 33.9 H RBC 2.85 L Hgb 7.8 L Hct 24.8 L MCV MCH 27 L MCHC RDW 23.9 H Plt Count Lymph % (Auto) [place] % (Auto) [place] # Seg Neutrophils % Seg Neuts % (Manual) Lymphocytes % (Manual) 5.0 L Monocytes % (Manual) Nucleated RBC % Seg Neutrophils # Seg Neutrophils # Man 23.1 H Lymphocytes # (Manual) Monocytes # (Manual) Eosinophils # (Manual) Basophils # (Manual) PT INR POC ABG pH ABG pH POC ABG pCO2 POC ABG pO2 ABG pO2 ABG O2 Saturation ABG Base Excess ABG Hemoglobin Oxyhemoglobin Sodium Potassium Chloride Carbon Dioxide BUN 51 H Creatinine 1.8 H Glucose 195 H POC Glucose 301 H Calcium Phosphorus 1.70 L D Magnesium 1.60 L Iron TIBC Ferritin Total Bilirubin AST 80 H ALT 82 H Alkaline Phosphatase 243 H Total Creatine Kinase Troponin T C-Reactive Protein Total Protein 4.2 L Albumin 1.7 L Triglycerides HDL Cholesterol Miscellaneous Test Crossmatch 09/01/17 09/01/17 09/01/17 05:20 05:47 11:37 WBC RBC Hgb Hct MCV MCH MCHC RDW Plt Count Lymph % (Auto) [place] % (Auto) [place] # Seg Neutrophils % Seg Neuts % (Manual) Lymphocytes % (Manual) Monocytes % (Manual) Nucleated RBC % Seg Neutrophils # Seg Neutrophils # Man Lymphocytes # (Manual) Monocytes # (Manual) Eosinophils # (Manual) Basophils # (Manual) PT INR POC ABG pH ABG pH 7.348 L POC ABG pCO2 POC ABG pO2 ABG pO2 70.2 L ABG O2 Saturation ABG Base Excess ABG Hemoglobin 7.5 L Oxyhemoglobin Sodium Potassium Chloride Carbon Dioxide BUN Creatinine Glucose POC Glucose 230 H 254 H Calcium Phosphorus Magnesium Iron TIBC Ferritin Total Bilirubin AST ALT Alkaline Phosphatase Total Creatine Kinase Troponin T C-Reactive Protein Total Protein Albumin Triglycerides HDL Cholesterol Miscellaneous Test Crossmatch 09/01/17 09/01/17 09/02/17 17:39 23:14 04:55 WBC RBC Hgb Hct MCV MCH MCHC RDW Plt Count Lymph % (Auto) [place] % (Auto) [place] # Seg Neutrophils % Seg Neuts % (Manual) Lymphocytes % (Manual) Monocytes % (Manual) Nucleated RBC % Seg Neutrophils # Seg Neutrophils # Man Lymphocytes # (Manual) Monocytes # (Manual) Eosinophils # (Manual) Basophils # (Manual) PT INR POC ABG pH ABG pH POC ABG pCO2 POC ABG pO2 ABG pO2 124.8 H ABG O2 Saturation ABG Base Excess -2.9 L ABG Hemoglobin 5.8 L Oxyhemoglobin Sodium Potassium Chloride Carbon Dioxide BUN Creatinine Glucose POC Glucose 297 H 291 H Calcium Phosphorus Magnesium Iron TIBC Ferritin Total Bilirubin AST ALT Alkaline Phosphatase Total Creatine Kinase Troponin T C-Reactive Protein Total Protein Albumin Triglycerides HDL Cholesterol Miscellaneous Test Crossmatch 09/02/17 09/02/17 09/02/17 05:31 06:10 11:58 WBC RBC Hgb Hct MCV MCH MCHC RDW Plt Count Lymph % (Auto) [place] % (Auto) [place] # Seg Neutrophils % Seg Neuts % (Manual) Lymphocytes % (Manual) Monocytes % (Manual) Nucleated RBC % Seg Neutrophils # Seg Neutrophils # Man Lymphocytes # (Manual) Monocytes # (Manual) Eosinophils # (Manual) Basophils # (Manual) PT INR POC ABG pH ABG pH POC ABG pCO2 POC ABG pO2 ABG pO2 ABG O2 Saturation ABG Base Excess ABG Hemoglobin Oxyhemoglobin Sodium Potassium Chloride Carbon Dioxide BUN 68 H Creatinine 2.2 H Glucose 369 H POC Glucose 245 H 333 H Calcium 8.2 L Phosphorus Magnesium Iron TIBC Ferritin Total Bilirubin AST ALT Alkaline Phosphatase Total Creatine Kinase Troponin T C-Reactive Protein Total Protein Albumin Triglycerides HDL Cholesterol Miscellaneous Test Crossmatch 09/02/17 09/02/17 09/03/17 15:37 23:50 04:00 WBC RBC Hgb Hct MCV MCH MCHC RDW Plt Count Lymph % (Auto) [place] % (Auto) [place] # Seg Neutrophils % Seg Neuts % (Manual) Lymphocytes % (Manual) Monocytes % (Manual) Nucleated RBC % Seg Neutrophils # Seg Neutrophils # Man Lymphocytes # (Manual) Monocytes # (Manual) Eosinophils # (Manual) Basophils # (Manual) PT INR POC ABG pH ABG pH POC ABG pCO2 POC ABG pO2 ABG pO2 ABG O2 Saturation ABG Base Excess ABG Hemoglobin Oxyhemoglobin Sodium Potassium Chloride Carbon Dioxide BUN 59 H Creatinine 1.9 H Glucose 231 H POC Glucose 314 H 240 H Calcium 8.0 L Phosphorus Magnesium Iron TIBC Ferritin Total Bilirubin AST ALT Alkaline Phosphatase 265 H Total Creatine Kinase Troponin T C-Reactive Protein Total Protein 4.4 L Albumin 1.7 L Triglycerides 180 H HDL Cholesterol Miscellaneous Test Crossmatch 09/03/17 09/03/17 09/03/17 05:00 05:32 11:52 WBC 41.5 H* RBC 2.46 L Hgb 6.9 L Hct 21.3 L MCV MCH MCHC RDW 24.9 H Plt Count Lymph % (Auto) [place] % (Auto) [place] # Seg Neutrophils % Seg Neuts % (Manual) Lymphocytes % (Manual) 3.0 L Monocytes % (Manual) 9.5 H Nucleated RBC % 1.5 H Seg Neutrophils # Seg Neutrophils # Man 28.8 H Lymphocytes # (Manual) Monocytes # (Manual) 3.9 H Eosinophils # (Manual) Basophils # (Manual) PT INR POC ABG pH ABG pH POC ABG pCO2 POC ABG pO2 ABG pO2 ABG O2 Saturation ABG Base Excess ABG Hemoglobin Oxyhemoglobin Sodium Potassium Chloride Carbon Dioxide BUN Creatinine Glucose POC Glucose 188 H 285 H Calcium Phosphorus Magnesium Iron TIBC Ferritin Total Bilirubin AST ALT Alkaline Phosphatase Total Creatine Kinase Troponin T C-Reactive Protein Total Protein Albumin Triglycerides HDL Cholesterol Miscellaneous Test Crossmatch 09/03/17 09/03/17 09/03/17 16:55 17:44 23:56 WBC RBC Hgb Hct MCV MCH MCHC RDW Plt Count Lymph % (Auto) [place] % (Auto) [place] # Seg Neutrophils % Seg Neuts % (Manual) Lymphocytes % (Manual) Monocytes % (Manual) Nucleated RBC % Seg Neutrophils # Seg Neutrophils # Man Lymphocytes # (Manual) Monocytes # (Manual) Eosinophils # (Manual) Basophils # (Manual) PT INR POC ABG pH ABG pH POC ABG pCO2 POC ABG pO2 ABG pO2 ABG O2 Saturation ABG Base Excess ABG Hemoglobin Oxyhemoglobin Sodium Potassium Chloride Carbon Dioxide BUN Creatinine Glucose POC Glucose 217 H 193 H Calcium Phosphorus Magnesium Iron TIBC Ferritin Total Bilirubin AST ALT Alkaline Phosphatase Total Creatine Kinase Troponin T C-Reactive Protein Total Protein Albumin Triglycerides HDL Cholesterol Miscellaneous Test Crossmatch See Detail 09/03/17 09/04/17 09/04/17 Unknown 03:47 04:32 WBC 44.7 H* RBC 3.12 L Hgb 8.7 L Hct 26.7 L MCV MCH MCHC RDW 23.5 H Plt Count Lymph % (Auto) [place] % (Auto) [place] # Seg Neutrophils % Seg Neuts % (Manual) Lymphocytes % (Manual) 4.0 L Monocytes % (Manual) Nucleated RBC % 2.0 H Seg Neutrophils # Seg Neutrophils # Man 30.8 H Lymphocytes # (Manual) Monocytes # (Manual) 2.2 H Eosinophils # (Manual) Basophils # (Manual) PT INR POC ABG pH ABG pH POC ABG pCO2 POC ABG pO2 ABG pO2 133.4 H 135.0 H ABG O2 Saturation ABG Base Excess -2.5 L ABG Hemoglobin 5.8 L 7.9 L Oxyhemoglobin Sodium Potassium Chloride Carbon Dioxide BUN Creatinine Glucose POC Glucose Calcium Phosphorus Magnesium Iron TIBC Ferritin Total Bilirubin AST ALT Alkaline Phosphatase Total Creatine Kinase Troponin T C-Reactive Protein Total Protein Albumin Triglycerides HDL Cholesterol Miscellaneous Test Crossmatch 09/04/17 09/04/17 09/04/17 04:32 05:48 10:43 WBC RBC Hgb Hct MCV MCH MCHC RDW Plt Count Lymph % (Auto) [place] % (Auto) [place] # Seg Neutrophils % Seg Neuts % (Manual) Lymphocytes % (Manual) Monocytes % (Manual) Nucleated RBC % Seg Neutrophils # Seg Neutrophils # Man Lymphocytes # (Manual) Monocytes # (Manual) Eosinophils # (Manual) Basophils # (Manual) PT INR POC ABG pH ABG pH POC ABG pCO2 POC ABG pO2 ABG pO2 ABG O2 Saturation ABG Base Excess ABG Hemoglobin Oxyhemoglobin Sodium 136 L Potassium 5.2 H D Chloride 94.2 L Carbon Dioxide BUN 71 H Creatinine 2.3 H Glucose 235 H POC Glucose 329 H Calcium 8.3 L Phosphorus Magnesium Iron TIBC Ferritin Total Bilirubin AST ALT Alkaline Phosphatase Total Creatine Kinase Troponin T C-Reactive Protein Total Protein Albumin Triglycerides HDL Cholesterol Miscellaneous Test Flexitest 1 H Crossmatch 09/04/17 09/04/17 09/05/17 12:38 17:30 00:15 WBC RBC Hgb Hct MCV MCH MCHC RDW Plt Count Lymph % (Auto) [place] % (Auto) [place] # Seg Neutrophils % Seg Neuts % (Manual) Lymphocytes % (Manual) Monocytes % (Manual) Nucleated RBC % Seg Neutrophils # Seg Neutrophils # Man Lymphocytes # (Manual) Monocytes # (Manual) Eosinophils # (Manual) Basophils # (Manual) PT INR POC ABG pH ABG pH POC ABG pCO2 POC ABG pO2 ABG pO2 ABG O2 Saturation ABG Base Excess ABG Hemoglobin Oxyhemoglobin Sodium Potassium Chloride Carbon Dioxide BUN Creatinine Glucose POC Glucose 444 H 331 H 362 H Calcium Phosphorus Magnesium Iron TIBC Ferritin Total Bilirubin AST ALT Alkaline Phosphatase Total Creatine Kinase Troponin T C-Reactive Protein Total Protein Albumin Triglycerides HDL Cholesterol Miscellaneous Test Crossmatch 09/05/17 09/05/17 09/05/17 03:55 03:55 12:12 WBC 35.3 H RBC 2.87 L Hgb 8.1 L Hct 24.6 L MCV MCH MCHC RDW 23.3 H Plt Count Lymph % (Auto) [place] % (Auto) [place] # Seg Neutrophils % Seg Neuts % (Manual) 89.5 H Lymphocytes % (Manual) 3.0 L Monocytes % (Manual) Nucleated RBC % 2.5 H Seg Neutrophils # Seg Neutrophils # Man 31.6 H Lymphocytes # (Manual) 1.1 L Monocytes # (Manual) Eosinophils # (Manual) Basophils # (Manual) PT INR POC ABG pH ABG pH POC ABG pCO2 POC ABG pO2 ABG pO2 ABG O2 Saturation ABG Base Excess ABG Hemoglobin Oxyhemoglobin Sodium 136 L Potassium Chloride 94.7 L Carbon Dioxide BUN 55 H Creatinine 1.8 H Glucose 193 H POC Glucose 344 H Calcium 8.1 L Phosphorus Magnesium Iron TIBC Ferritin Total Bilirubin AST ALT Alkaline Phosphatase Total Creatine Kinase Troponin T C-Reactive Protein Total Protein Albumin Triglycerides HDL Cholesterol Miscellaneous Test Crossmatch 09/05/17 09/05/17 09/05/17 14:32 15:32 16:41 WBC RBC Hgb Hct MCV MCH MCHC RDW Plt Count Lymph % (Auto) [place] % (Auto) [place] # Seg Neutrophils % Seg Neuts % (Manual) Lymphocytes % (Manual) Monocytes % (Manual) Nucleated RBC % Seg Neutrophils # Seg Neutrophils # Man Lymphocytes # (Manual) Monocytes # (Manual) Eosinophils # (Manual) Basophils # (Manual) PT INR POC ABG pH ABG pH POC ABG pCO2 POC ABG pO2 ABG pO2 ABG O2 Saturation ABG Base Excess ABG Hemoglobin Oxyhemoglobin Sodium Potassium Chloride Carbon Dioxide BUN Creatinine Glucose POC Glucose 265 H 145 H 188 H Calcium Phosphorus Magnesium Iron TIBC Ferritin Total Bilirubin AST ALT Alkaline Phosphatase Total Creatine Kinase Troponin T C-Reactive Protein Total Protein Albumin Triglycerides HDL Cholesterol Miscellaneous Test Crossmatch 09/05/17 09/05/17 09/05/17 17:28 18:38 20:10 WBC RBC Hgb Hct MCV MCH MCHC RDW Plt Count Lymph % (Auto) [place] % (Auto) [place] # Seg Neutrophils % Seg Neuts % (Manual) Lymphocytes % (Manual) Monocytes % (Manual) Nucleated RBC % Seg Neutrophils # Seg Neutrophils # Man Lymphocytes # (Manual) Monocytes # (Manual) Eosinophils # (Manual) Basophils # (Manual) PT INR POC ABG pH ABG pH POC ABG pCO2 POC ABG pO2 ABG pO2 ABG O2 Saturation ABG Base Excess ABG Hemoglobin Oxyhemoglobin Sodium Potassium Chloride Carbon Dioxide BUN Creatinine Glucose POC Glucose 246 H 271 H 165 H Calcium Phosphorus Magnesium Iron TIBC Ferritin Total Bilirubin AST ALT Alkaline Phosphatase Total Creatine Kinase Troponin T C-Reactive Protein Total Protein Albumin Triglycerides HDL Cholesterol Miscellaneous Test Crossmatch 09/05/17 09/05/17 09/06/17 21:06 23:07 00:10 WBC RBC Hgb Hct MCV MCH MCHC RDW Plt Count Lymph % (Auto) [place] % (Auto) [place] # Seg Neutrophils % Seg Neuts % (Manual) Lymphocytes % (Manual) Monocytes % (Manual) Nucleated RBC % Seg Neutrophils # Seg Neutrophils # Man Lymphocytes # (Manual) Monocytes # (Manual) Eosinophils # (Manual) Basophils # (Manual) PT INR POC ABG pH ABG pH POC ABG pCO2 POC ABG pO2 ABG pO2 ABG O2 Saturation ABG Base Excess ABG Hemoglobin Oxyhemoglobin Sodium Potassium Chloride Carbon Dioxide BUN Creatinine Glucose POC Glucose 134 H 135 H 147 H Calcium Phosphorus Magnesium Iron TIBC Ferritin Total Bilirubin AST ALT Alkaline Phosphatase Total Creatine Kinase Troponin T C-Reactive Protein Total Protein Albumin Triglycerides HDL Cholesterol Miscellaneous Test Crossmatch 09/06/17 09/06/17 09/06/17 01:08 02:01 03:08 WBC RBC Hgb Hct MCV MCH MCHC RDW Plt Count Lymph % (Auto) [place] % (Auto) [place] # Seg Neutrophils % Seg Neuts % (Manual) Lymphocytes % (Manual) Monocytes % (Manual) Nucleated RBC % Seg Neutrophils # Seg Neutrophils # Man Lymphocytes # (Manual) Monocytes # (Manual) Eosinophils # (Manual) Basophils # (Manual) PT INR POC ABG pH ABG pH POC ABG pCO2 POC ABG pO2 ABG pO2 ABG O2 Saturation ABG Base Excess ABG Hemoglobin Oxyhemoglobin Sodium Potassium Chloride Carbon Dioxide BUN Creatinine Glucose POC Glucose 133 H 146 H 135 H Calcium Phosphorus Magnesium Iron TIBC Ferritin Total Bilirubin AST ALT Alkaline Phosphatase Total Creatine Kinase Troponin T C-Reactive Protein Total Protein Albumin Triglycerides HDL Cholesterol Miscellaneous Test Crossmatch 09/06/17 09/06/17 09/06/17 05:30 05:30 05:30 WBC 38.6 H RBC 2.95 L Hgb 8.3 L Hct 25.3 L MCV MCH MCHC RDW 22.2 H Plt Count Lymph % (Auto) [place] % (Auto) [place] # Seg Neutrophils % Seg Neuts % (Manual) Lymphocytes % (Manual) 2.0 L Monocytes % (Manual) Nucleated RBC % 5.0 H Seg Neutrophils # Seg Neutrophils # Man 25.9 H Lymphocytes # (Manual) 0.8 L Monocytes # (Manual) 1.9 H Eosinophils # (Manual) Basophils # (Manual) PT INR POC ABG pH ABG pH POC ABG pCO2 POC ABG pO2 ABG pO2 ABG O2 Saturation ABG Base Excess ABG Hemoglobin Oxyhemoglobin Sodium 135 L Potassium Chloride 93.5 L Carbon Dioxide BUN 82 H Creatinine 2.3 H Glucose 148 H POC Glucose Calcium Phosphorus Magnesium Iron TIBC Ferritin Total Bilirubin AST ALT Alkaline Phosphatase Total Creatine Kinase Troponin T C-Reactive Protein 2.80 H Total Protein Albumin Triglycerides HDL Cholesterol Miscellaneous Test Crossmatch 09/06/17 09/06/17 09/06/17 05:48 08:04 09:06 WBC RBC Hgb Hct MCV MCH MCHC RDW Plt Count Lymph % (Auto) [place] % (Auto) [place] # Seg Neutrophils % Seg Neuts % (Manual) Lymphocytes % (Manual) Monocytes % (Manual) Nucleated RBC % Seg Neutrophils # Seg Neutrophils # Man Lymphocytes # (Manual) Monocytes # (Manual) Eosinophils # (Manual) Basophils # (Manual) PT INR POC ABG pH ABG pH POC ABG pCO2 POC ABG pO2 ABG pO2 ABG O2 Saturation ABG Base Excess ABG Hemoglobin Oxyhemoglobin Sodium Potassium Chloride Carbon Dioxide BUN Creatinine Glucose POC Glucose 152 H 164 H 172 H Calcium Phosphorus Magnesium Iron TIBC Ferritin Total Bilirubin AST ALT Alkaline Phosphatase Total Creatine Kinase Troponin T C-Reactive Protein Total Protein Albumin Triglycerides HDL Cholesterol Miscellaneous Test Crossmatch 09/06/17 09/06/17 09/06/17 09:57 10:19 10:57 WBC RBC Hgb Hct MCV MCH MCHC RDW Plt Count Lymph % (Auto) [place] % (Auto) [place] # Seg Neutrophils % Seg Neuts % (Manual) Lymphocytes % (Manual) Monocytes % (Manual) Nucleated RBC % Seg Neutrophils # Seg Neutrophils # Man Lymphocytes # (Manual) Monocytes # (Manual) Eosinophils # (Manual) Basophils # (Manual) PT INR POC ABG pH ABG pH POC ABG pCO2 POC ABG pO2 ABG pO2 ABG O2 Saturation ABG Base Excess ABG Hemoglobin Oxyhemoglobin Sodium Potassium Chloride Carbon Dioxide BUN Creatinine Glucose POC Glucose 186 H 162 H Calcium Phosphorus Magnesium Iron TIBC Ferritin Total Bilirubin AST ALT Alkaline Phosphatase Total Creatine Kinase Troponin T C-Reactive Protein Total Protein Albumin Triglycerides HDL Cholesterol Miscellaneous Test Flexitest 1 H Crossmatch 09/06/17 09/06/17 09/06/17 13:12 13:40 17:36 WBC RBC Hgb 8.9 L Hct 28.5 L MCV MCH MCHC RDW Plt Count Lymph % (Auto) [place] % (Auto) [place] # Seg Neutrophils % Seg Neuts % (Manual) Lymphocytes % (Manual) Monocytes % (Manual) Nucleated RBC % Seg Neutrophils # Seg Neutrophils # Man Lymphocytes # (Manual) Monocytes # (Manual) Eosinophils # (Manual) Basophils # (Manual) PT INR POC ABG pH ABG pH POC ABG pCO2 POC ABG pO2 ABG pO2 ABG O2 Saturation ABG Base Excess ABG Hemoglobin Oxyhemoglobin Sodium Potassium Chloride Carbon Dioxide BUN Creatinine Glucose POC Glucose 166 H 161 H Calcium Phosphorus Magnesium Iron TIBC Ferritin Total Bilirubin AST ALT Alkaline Phosphatase Total Creatine Kinase Troponin T C-Reactive Protein Total Protein Albumin Triglycerides HDL Cholesterol Miscellaneous Test Crossmatch 09/07/17 09/07/17 09/07/17 00:13 03:50 03:50 WBC 47.0 H* RBC 2.81 L Hgb 8.1 L Hct 24.1 L MCV MCH MCHC RDW 22.5 H Plt Count Lymph % (Auto) [place] % (Auto) [place] # Seg Neutrophils % Seg Neuts % (Manual) Lymphocytes % (Manual) 9.0 L Monocytes % (Manual) Nucleated RBC % 6.0 H Seg Neutrophils # Seg Neutrophils # Man 27.3 H Lymphocytes # (Manual) Monocytes # (Manual) 0.9 H Eosinophils # (Manual) 1.9 H Basophils # (Manual) PT INR POC ABG pH ABG pH POC ABG pCO2 POC ABG pO2 ABG pO2 ABG O2 Saturation ABG Base Excess ABG Hemoglobin Oxyhemoglobin Sodium 136 L Potassium Chloride 96.3 L Carbon Dioxide BUN 61 H Creatinine 1.7 H Glucose 132 H POC Glucose 183 H Calcium 7.8 L Phosphorus Magnesium Iron TIBC Ferritin Total Bilirubin AST ALT Alkaline Phosphatase Total Creatine Kinase Troponin T C-Reactive Protein Total Protein Albumin Triglycerides HDL Cholesterol Miscellaneous Test Crossmatch 09/07/17 09/07/17 09/07/17 05:12 05:23 11:48 WBC RBC Hgb Hct MCV MCH MCHC RDW Plt Count Lymph % (Auto) [place] % (Auto) [place] # Seg Neutrophils % Seg Neuts % (Manual) Lymphocytes % (Manual) Monocytes % (Manual) Nucleated RBC % Seg Neutrophils # Seg Neutrophils # Man Lymphocytes # (Manual) Monocytes # (Manual) Eosinophils # (Manual) Basophils # (Manual) PT INR POC ABG pH ABG pH POC ABG pCO2 POC ABG pO2 ABG pO2 ABG O2 Saturation ABG Base Excess ABG Hemoglobin 7.7 L Oxyhemoglobin 94.8 L Sodium Potassium Chloride Carbon Dioxide BUN Creatinine Glucose POC Glucose 162 H 200 H Calcium Phosphorus Magnesium Iron TIBC Ferritin Total Bilirubin AST ALT Alkaline Phosphatase Total Creatine Kinase Troponin T C-Reactive Protein Total Protein Albumin Triglycerides HDL Cholesterol Miscellaneous Test Crossmatch 09/07/17 09/07/17 09/08/17 17:07 18:21 00:06 WBC RBC Hgb Hct MCV MCH MCHC RDW Plt Count Lymph % (Auto) [place] % (Auto) [place] # Seg Neutrophils % Seg Neuts % (Manual) Lymphocytes % (Manual) Monocytes % (Manual) Nucleated RBC % Seg Neutrophils # Seg Neutrophils # Man Lymphocytes # (Manual) Monocytes # (Manual) Eosinophils # (Manual) Basophils # (Manual) PT INR POC ABG pH ABG pH POC ABG pCO2 POC ABG pO2 ABG pO2 ABG O2 Saturation ABG Base Excess ABG Hemoglobin Oxyhemoglobin Sodium Potassium Chloride Carbon Dioxide BUN Creatinine Glucose POC Glucose 181 H 168 H Calcium Phosphorus Magnesium Iron TIBC Ferritin Total Bilirubin AST ALT Alkaline Phosphatase Total Creatine Kinase Troponin T C-Reactive Protein Total Protein Albumin Triglycerides HDL Cholesterol Miscellaneous Test Crossmatch See Detail 09/08/17 09/08/17 09/08/17 04:05 04:05 04:41 WBC 49.7 H* RBC 2.58 L Hgb 7.3 L Hct 22.7 L MCV MCH MCHC RDW 22.5 H Plt Count Lymph % (Auto) [place] % (Auto) [place] # Seg Neutrophils % Seg Neuts % (Manual) 90.5 H Lymphocytes % (Manual) 1.5 L Monocytes % (Manual) Nucleated RBC % Seg Neutrophils # Seg Neutrophils # Man 45.0 H Lymphocytes # (Manual) 0.7 L Monocytes # (Manual) 1.7 H Eosinophils # (Manual) Basophils # (Manual) PT INR POC ABG pH ABG pH POC ABG pCO2 POC ABG pO2 ABG pO2 ABG O2 Saturation ABG Base Excess ABG Hemoglobin Oxyhemoglobin Sodium 132 L Potassium Chloride 92.1 L Carbon Dioxide BUN 82 H Creatinine 2.2 H Glucose 162 H POC Glucose 235 H Calcium 8.3 L Phosphorus 5.20 H D Magnesium Iron TIBC Ferritin Total Bilirubin AST ALT Alkaline Phosphatase 199 H Total Creatine Kinase Troponin T C-Reactive Protein Total Protein 4.5 L Albumin 1.7 L Triglycerides HDL Cholesterol Miscellaneous Test Crossmatch 09/08/17 09/08/17 09/08/17 09:21 11:52 17:38 WBC RBC Hgb Hct MCV MCH MCHC RDW Plt Count Lymph % (Auto) [place] % (Auto) [place] # Seg Neutrophils % Seg Neuts % (Manual) Lymphocytes % (Manual) Monocytes % (Manual) Nucleated RBC % Seg Neutrophils # Seg Neutrophils # Man Lymphocytes # (Manual) Monocytes # (Manual) Eosinophils # (Manual) Basophils # (Manual) PT INR POC ABG pH ABG pH POC ABG pCO2 POC ABG pO2 ABG pO2 218.5 H ABG O2 Saturation 99.3 H ABG Base Excess -3.5 L ABG Hemoglobin 7.7 L Oxyhemoglobin Sodium Potassium Chloride Carbon Dioxide BUN Creatinine Glucose POC Glucose 220 H 194 H Calcium Phosphorus Magnesium Iron TIBC Ferritin Total Bilirubin AST ALT Alkaline Phosphatase Total Creatine Kinase Troponin T C-Reactive Protein Total Protein Albumin Triglycerides HDL Cholesterol Miscellaneous Test Crossmatch 09/09/17 09/09/17 09/09/17 00:24 03:37 03:37 WBC 33.5 H RBC 2.36 L Hgb 6.7 L Hct 20.9 L MCV MCH MCHC RDW 22.7 H Plt Count Lymph % (Auto) [place] % (Auto) [place] # Seg Neutrophils % Seg Neuts % (Manual) Lymphocytes % (Manual) Monocytes % (Manual) Nucleated RBC % Seg Neutrophils # Seg Neutrophils # Man Lymphocytes # (Manual) Monocytes # (Manual) Eosinophils # (Manual) Basophils # (Manual) PT INR POC ABG pH ABG pH POC ABG pCO2 POC ABG pO2 ABG pO2 ABG O2 Saturation ABG Base Excess ABG Hemoglobin Oxyhemoglobin Sodium 132 L Potassium Chloride 91.6 L Carbon Dioxide 21 L BUN 101 H Creatinine 2.6 H Glucose 156 H POC Glucose 182 H Calcium 8.3 L Phosphorus 5.90 H Magnesium 2.60 H Iron TIBC Ferritin Total Bilirubin AST ALT Alkaline Phosphatase Total Creatine Kinase Troponin T C-Reactive Protein Total Protein Albumin Triglycerides HDL Cholesterol Miscellaneous Test Crossmatch 09/09/17 09/09/17 09/09/17 05:29 12:03 18:05 WBC RBC Hgb Hct MCV MCH MCHC RDW Plt Count Lymph % (Auto) [place] % (Auto) [place] # Seg Neutrophils % Seg Neuts % (Manual) Lymphocytes % (Manual) Monocytes % (Manual) Nucleated RBC % Seg Neutrophils # Seg Neutrophils # Man Lymphocytes # (Manual) Monocytes # (Manual) Eosinophils # (Manual) Basophils # (Manual) PT INR POC ABG pH ABG pH POC ABG pCO2 POC ABG pO2 ABG pO2 ABG O2 Saturation ABG Base Excess ABG Hemoglobin Oxyhemoglobin Sodium Potassium Chloride Carbon Dioxide BUN Creatinine Glucose POC Glucose 168 H 143 H 173 H Calcium Phosphorus Magnesium Iron TIBC Ferritin Total Bilirubin AST ALT Alkaline Phosphatase Total Creatine Kinase Troponin T C-Reactive Protein Total Protein Albumin Triglycerides HDL Cholesterol Miscellaneous Test Crossmatch 09/09/17 09/09/17 09/10/17 23:30 Unknown 05:04 WBC RBC Hgb Hct MCV MCH MCHC RDW Plt Count Lymph % (Auto) [place] % (Auto) [place] # Seg Neutrophils % Seg Neuts % (Manual) Lymphocytes % (Manual) Monocytes % (Manual) Nucleated RBC % Seg Neutrophils # Seg Neutrophils # Man Lymphocytes # (Manual) Monocytes # (Manual) Eosinophils # (Manual) Basophils # (Manual) PT INR POC ABG pH ABG pH 7.323 L POC ABG pCO2 POC ABG pO2 ABG pO2 94.1 H ABG O2 Saturation ABG Base Excess -4.8 L ABG Hemoglobin 8.0 L Oxyhemoglobin 94.9 L Sodium Potassium Chloride Carbon Dioxide BUN Creatinine Glucose POC Glucose 212 H 155 H Calcium Phosphorus Magnesium Iron TIBC Ferritin Total Bilirubin AST ALT Alkaline Phosphatase Total Creatine Kinase Troponin T C-Reactive Protein Total Protein Albumin Triglycerides HDL Cholesterol Miscellaneous Test Crossmatch 09/10/17 09/10/17 09/10/17 07:00 09:55 12:22 WBC 24.7 H RBC 2.62 L Hgb 7.5 L Hct 22.5 L MCV MCH MCHC RDW 20.8 H Plt Count Lymph % (Auto) [place] % (Auto) [place] # Seg Neutrophils % Seg Neuts % (Manual) Lymphocytes % (Manual) Monocytes % (Manual) Nucleated RBC % Seg Neutrophils # Seg Neutrophils # Man Lymphocytes # (Manual) Monocytes # (Manual) Eosinophils # (Manual) Basophils # (Manual) PT INR POC ABG pH ABG pH POC ABG pCO2 POC ABG pO2 ABG pO2 ABG O2 Saturation ABG Base Excess ABG Hemoglobin Oxyhemoglobin Sodium Potassium Chloride 97.9 L Carbon Dioxide BUN 78 H Creatinine 2.0 H Glucose 126 H POC Glucose 183 H Calcium 8.2 L Phosphorus Magnesium Iron TIBC Ferritin Total Bilirubin AST ALT Alkaline Phosphatase Total Creatine Kinase Troponin T C-Reactive Protein Total Protein Albumin Triglycerides HDL Cholesterol Miscellaneous Test Crossmatch 09/11/17 09/11/17 09/11/17 00:08 03:50 05:28 WBC 21.6 H RBC 2.52 L Hgb 7.4 L Hct 22.2 L MCV MCH MCHC RDW 21.5 H Plt Count Lymph % (Auto) [place] % (Auto) [place] # Seg Neutrophils % Seg Neuts % (Manual) 92.0 H Lymphocytes % (Manual) 3.0 L Monocytes % (Manual) Nucleated RBC % Seg Neutrophils # Seg Neutrophils # Man 19.9 H Lymphocytes # (Manual) 0.6 L Monocytes # (Manual) Eosinophils # (Manual) Basophils # (Manual) PT INR POC ABG pH ABG pH POC ABG pCO2 POC ABG pO2 ABG pO2 ABG O2 Saturation ABG Base Excess ABG Hemoglobin Oxyhemoglobin Sodium Potassium Chloride Carbon Dioxide BUN Creatinine Glucose POC Glucose 213 H 181 H Calcium Phosphorus Magnesium Iron TIBC Ferritin Total Bilirubin AST ALT Alkaline Phosphatase Total Creatine Kinase Troponin T C-Reactive Protein Total Protein Albumin Triglycerides HDL Cholesterol Miscellaneous Test Crossmatch 09/11/17 09/11/17 09/11/17 11:55 17:56 23:12 WBC RBC Hgb Hct MCV MCH MCHC RDW Plt Count Lymph % (Auto) [place] % (Auto) [place] # Seg Neutrophils % Seg Neuts % (Manual) Lymphocytes % (Manual) Monocytes % (Manual) Nucleated RBC % Seg Neutrophils # Seg Neutrophils # Man Lymphocytes # (Manual) Monocytes # (Manual) Eosinophils # (Manual) Basophils # (Manual) PT INR POC ABG pH ABG pH POC ABG pCO2 POC ABG pO2 ABG pO2 ABG O2 Saturation ABG Base Excess ABG Hemoglobin Oxyhemoglobin Sodium Potassium Chloride Carbon Dioxide 21 L BUN 80 H Creatinine 2.1 H Glucose 170 H POC Glucose 277 H 206 H Calcium 8.0 L Phosphorus Magnesium Iron TIBC Ferritin Total Bilirubin AST ALT Alkaline Phosphatase Total Creatine Kinase Troponin T C-Reactive Protein Total Protein Albumin Triglycerides HDL Cholesterol Miscellaneous Test Crossmatch 09/11/17 09/12/17 09/12/17 23:36 05:25 05:25 WBC 17.4 H RBC 2.29 L Hgb 6.7 L Hct 20.4 L MCV MCH MCHC RDW 21.2 H Plt Count Lymph % (Auto) [place] % (Auto) [place] # Seg Neutrophils % Seg Neuts % (Manual) 79.0 H Lymphocytes % (Manual) 5.0 L Monocytes % (Manual) Nucleated RBC % 1.0 H Seg Neutrophils # Seg Neutrophils # Man 13.7 H Lymphocytes # (Manual) 0.9 L Monocytes # (Manual) 1.2 H Eosinophils # (Manual) Basophils # (Manual) PT INR POC ABG pH ABG pH POC ABG pCO2 POC ABG pO2 ABG pO2 ABG O2 Saturation ABG Base Excess ABG Hemoglobin Oxyhemoglobin Sodium Potassium Chloride Carbon Dioxide BUN Creatinine Glucose POC Glucose 190 H Calcium Phosphorus Magnesium Iron 22 L TIBC 81 L Ferritin Total Bilirubin AST ALT Alkaline Phosphatase Total Creatine Kinase Troponin T C-Reactive Protein Total Protein Albumin Triglycerides HDL Cholesterol Miscellaneous Test Crossmatch 09/12/17 09/12/17 09/12/17 05:25 05:36 09:14 WBC RBC Hgb Hct MCV MCH MCHC RDW Plt Count Lymph % (Auto) [place] % (Auto) [place] # Seg Neutrophils % Seg Neuts % (Manual) Lymphocytes % (Manual) Monocytes % (Manual) Nucleated RBC % Seg Neutrophils # Seg Neutrophils # Man Lymphocytes # (Manual) Monocytes # (Manual) Eosinophils # (Manual) Basophils # (Manual) PT INR POC ABG pH ABG pH POC ABG pCO2 POC ABG pO2 ABG pO2 ABG O2 Saturation ABG Base Excess ABG Hemoglobin Oxyhemoglobin Sodium Potassium Chloride Carbon Dioxide BUN Creatinine Glucose POC Glucose 141 H Calcium Phosphorus Magnesium Iron TIBC Ferritin > 2000.0 H Total Bilirubin AST ALT Alkaline Phosphatase Total Creatine Kinase Troponin T C-Reactive Protein Total Protein Albumin Triglycerides HDL Cholesterol Miscellaneous Test Crossmatch See Detail 09/12/17 09/12/17 09/12/17 11:18 15:22 17:18 WBC RBC Hgb 8.5 L Hct 25.4 L MCV MCH MCHC RDW Plt Count Lymph % (Auto) [place] % (Auto) [place] # Seg Neutrophils % Seg Neuts % (Manual) Lymphocytes % (Manual) Monocytes % (Manual) Nucleated RBC % Seg Neutrophils # Seg Neutrophils # Man Lymphocytes # (Manual) Monocytes # (Manual) Eosinophils # (Manual) Basophils # (Manual) PT INR POC ABG pH ABG pH POC ABG pCO2 POC ABG pO2 ABG pO2 ABG O2 Saturation ABG Base Excess ABG Hemoglobin Oxyhemoglobin Sodium Potassium Chloride Carbon Dioxide BUN Creatinine Glucose POC Glucose 262 H 193 H Calcium Phosphorus Magnesium Iron TIBC Ferritin Total Bilirubin AST ALT Alkaline Phosphatase Total Creatine Kinase Troponin T C-Reactive Protein Total Protein Albumin Triglycerides HDL Cholesterol Miscellaneous Test Crossmatch 09/13/17 09/13/17 09/13/17 00:05 06:25 11:36 WBC RBC Hgb Hct MCV MCH MCHC RDW Plt Count Lymph % (Auto) [place] % (Auto) [place] # Seg Neutrophils % Seg Neuts % (Manual) Lymphocytes % (Manual) Monocytes % (Manual) Nucleated RBC % Seg Neutrophils # Seg Neutrophils # Man Lymphocytes # (Manual) Monocytes # (Manual) Eosinophils # (Manual) Basophils # (Manual) PT INR POC ABG pH 7.347 L ABG pH POC ABG pCO2 34.3 L POC ABG pO2 134 H ABG pO2 ABG O2 Saturation ABG Base Excess ABG Hemoglobin Oxyhemoglobin Sodium Potassium Chloride Carbon Dioxide BUN Creatinine Glucose POC Glucose 235 H 286 H Calcium Phosphorus Magnesium Iron TIBC Ferritin Total Bilirubin AST ALT Alkaline Phosphatase Total Creatine Kinase Troponin T C-Reactive Protein Total Protein Albumin Triglycerides HDL Cholesterol Miscellaneous Test Crossmatch 09/13/17 09/13/17 09/13/17 11:56 17:25 23:18 WBC RBC Hgb Hct MCV MCH MCHC RDW Plt Count Lymph % (Auto) [place] % (Auto) [place] # Seg Neutrophils % Seg Neuts % (Manual) Lymphocytes % (Manual) Monocytes % (Manual) Nucleated RBC % Seg Neutrophils # Seg Neutrophils # Man Lymphocytes # (Manual) Monocytes # (Manual) Eosinophils # (Manual) Basophils # (Manual) PT INR POC ABG pH ABG pH POC ABG pCO2 POC ABG pO2 ABG pO2 ABG O2 Saturation ABG Base Excess ABG Hemoglobin Oxyhemoglobin Sodium Potassium Chloride Carbon Dioxide BUN Creatinine Glucose POC Glucose 318 H 278 H 230 H Calcium Phosphorus Magnesium Iron TIBC Ferritin Total Bilirubin AST ALT Alkaline Phosphatase Total Creatine Kinase Troponin T C-Reactive Protein Total Protein Albumin Triglycerides HDL Cholesterol Miscellaneous Test Crossmatch 09/13/17 09/13/17 09/13/17 Unknown Unknown Unknown WBC 15.6 H RBC 2.72 L Hgb 8.1 L Hct 23.9 L MCV MCH MCHC RDW 19.5 H Plt Count 137 L Lymph % (Auto) [place] % (Auto) [place] # Seg Neutrophils % Seg Neuts % (Manual) 73.0 H Lymphocytes % (Manual) 3.0 L Monocytes % (Manual) 19.0 H Nucleated RBC % 2.0 H Seg Neutrophils # Seg Neutrophils # Man 11.4 H Lymphocytes # (Manual) 0.5 L Monocytes # (Manual) 3.0 H Eosinophils # (Manual) Basophils # (Manual) PT INR POC ABG pH ABG pH POC ABG pCO2 POC ABG pO2 ABG pO2 ABG O2 Saturation ABG Base Excess ABG Hemoglobin Oxyhemoglobin Sodium Potassium Chloride Carbon Dioxide 19 L BUN 103 H Creatinine 2.6 H Glucose 173 H POC Glucose Calcium Phosphorus Magnesium Iron TIBC Ferritin Total Bilirubin AST ALT Alkaline Phosphatase Total Creatine Kinase Troponin T C-Reactive Protein Total Protein Albumin < 0.2 L Triglycerides HDL Cholesterol Miscellaneous Test Crossmatch 09/14/17 09/14/17 09/14/17 03:15 03:15 05:16 WBC 12.5 H RBC 2.55 L Hgb 7.6 L Hct 22.5 L MCV MCH MCHC RDW 19.8 H Plt Count 139 L Lymph % (Auto) [place] % (Auto) [place] # Seg Neutrophils % Seg Neuts % (Manual) Lymphocytes % (Manual) Monocytes % (Manual) Nucleated RBC % Seg Neutrophils # Seg Neutrophils # Man Lymphocytes # (Manual) Monocytes # (Manual) Eosinophils # (Manual) Basophils # (Manual) PT INR POC ABG pH ABG pH POC ABG pCO2 POC ABG pO2 ABG pO2 ABG O2 Saturation ABG Base Excess ABG Hemoglobin Oxyhemoglobin Sodium Potassium Chloride Carbon Dioxide BUN 75 H Creatinine 2.1 H Glucose 217 H POC Glucose 283 H Calcium Phosphorus 2.20 L D Magnesium Iron TIBC Ferritin Total Bilirubin AST ALT Alkaline Phosphatase Total Creatine Kinase Troponin T C-Reactive Protein Total Protein Albumin Triglycerides HDL Cholesterol Miscellaneous Test Crossmatch 09/14/17 09/14/17 09/15/17 12:11 17:47 00:03 WBC RBC Hgb Hct MCV MCH MCHC RDW Plt Count Lymph % (Auto) [place] % (Auto) [place] # Seg Neutrophils % Seg Neuts % (Manual) Lymphocytes % (Manual) Monocytes % (Manual) Nucleated RBC % Seg Neutrophils # Seg Neutrophils # Man Lymphocytes # (Manual) Monocytes # (Manual) Eosinophils # (Manual) Basophils # (Manual) PT INR POC ABG pH ABG pH POC ABG pCO2 POC ABG pO2 ABG pO2 ABG O2 Saturation ABG Base Excess ABG Hemoglobin Oxyhemoglobin Sodium Potassium Chloride Carbon Dioxide BUN Creatinine Glucose POC Glucose 251 H 289 H 229 H Calcium Phosphorus Magnesium Iron TIBC Ferritin Total Bilirubin AST ALT Alkaline Phosphatase Total Creatine Kinase Troponin T C-Reactive Protein Total Protein Albumin Triglycerides HDL Cholesterol Miscellaneous Test Crossmatch 09/15/17 09/15/17 09/15/17 05:00 05:00 05:30 WBC 11.7 H RBC 2.50 L Hgb 7.4 L Hct 22.7 L MCV MCH MCHC RDW 20.5 H Plt Count Lymph % (Auto) [place] % (Auto) [place] # Seg Neutrophils % Seg Neuts % (Manual) Lymphocytes % (Manual) 11.0 L Monocytes % (Manual) 11.0 H Nucleated RBC % Seg Neutrophils # Seg Neutrophils # Man Lymphocytes # (Manual) Monocytes # (Manual) 1.3 H Eosinophils # (Manual) Basophils # (Manual) PT INR POC ABG pH ABG pH POC ABG pCO2 POC ABG pO2 ABG pO2 ABG O2 Saturation ABG Base Excess ABG Hemoglobin Oxyhemoglobin Sodium Potassium Chloride 97.0 L Carbon Dioxide 21 L BUN 94 H Creatinine 2.4 H Glucose 194 H POC Glucose 225 H Calcium Phosphorus Magnesium Iron TIBC Ferritin Total Bilirubin AST ALT Alkaline Phosphatase Total Creatine Kinase Troponin T C-Reactive Protein Total Protein Albumin Triglycerides HDL Cholesterol Miscellaneous Test Crossmatch 09/15/17 09/15/17 09/15/17 07:48 11:38 12:45 WBC RBC 1.93 L Hgb 5.7 L* Hct 17.1 L* MCV MCH MCHC RDW 20.2 H Plt Count 125 L Lymph % (Auto) [place] % (Auto) [place] # Seg Neutrophils % Seg Neuts % (Manual) 79.0 H Lymphocytes % (Manual) 8.0 L Monocytes % (Manual) Nucleated RBC % Seg Neutrophils # Seg Neutrophils # Man Lymphocytes # (Manual) 0.8 L Monocytes # (Manual) Eosinophils # (Manual) Basophils # (Manual) PT INR POC ABG pH ABG pH POC ABG pCO2 POC ABG pO2 ABG pO2 ABG O2 Saturation ABG Base Excess ABG Hemoglobin Oxyhemoglobin Sodium Potassium Chloride Carbon Dioxide BUN Creatinine Glucose POC Glucose 245 H 253 H Calcium Phosphorus Magnesium Iron TIBC Ferritin Total Bilirubin AST ALT Alkaline Phosphatase Total Creatine Kinase Troponin T C-Reactive Protein Total Protein Albumin Triglycerides HDL Cholesterol Miscellaneous Test Crossmatch 09/15/17 09/15/17 09/15/17 12:45 12:45 22:25 WBC 19.6 H RBC 3.32 L Hgb 10.0 L D Hct 29.3 L D MCV MCH MCHC RDW 17.0 H Plt Count 123 L Lymph % (Auto) [place] % (Auto) [place] # Seg Neutrophils % Seg Neuts % (Manual) Lymphocytes % (Manual) 12.0 L Monocytes % (Manual) Nucleated RBC % 5.0 H Seg Neutrophils # Seg Neutrophils # Man 11.0 H Lymphocytes # (Manual) Monocytes # (Manual) 1.2 H Eosinophils # (Manual) Basophils # (Manual) PT 15.4 H INR 1.16 H POC ABG pH ABG pH POC ABG pCO2 POC ABG pO2 ABG pO2 ABG O2 Saturation ABG Base Excess ABG Hemoglobin Oxyhemoglobin Sodium Potassium Chloride Carbon Dioxide BUN Creatinine Glucose POC Glucose Calcium Phosphorus Magnesium Iron TIBC Ferritin Total Bilirubin AST ALT Alkaline Phosphatase Total Creatine Kinase Troponin T C-Reactive Protein Total Protein Albumin Triglycerides HDL Cholesterol Miscellaneous Test Crossmatch See Detail 09/15/17 09/15/17 09/16/17 22:25 23:38 01:26 WBC RBC Hgb Hct MCV MCH MCHC RDW Plt Count Lymph % (Auto) [place] % (Auto) [place] # Seg Neutrophils % Seg Neuts % (Manual) Lymphocytes % (Manual) Monocytes % (Manual) Nucleated RBC % Seg Neutrophils # Seg Neutrophils # Man Lymphocytes # (Manual) Monocytes # (Manual) Eosinophils # (Manual) Basophils # (Manual) PT INR POC ABG pH ABG pH POC ABG pCO2 POC ABG pO2 ABG pO2 ABG O2 Saturation ABG Base Excess ABG Hemoglobin Oxyhemoglobin Sodium Potassium Chloride Carbon Dioxide 17 L BUN 100 H Creatinine 2.6 H Glucose POC Glucose 58 L 132 H Calcium 8.3 L Phosphorus Magnesium 1.60 L Iron TIBC Ferritin Total Bilirubin 2.80 H AST 118 H ALT Alkaline Phosphatase 316 H Total Creatine Kinase Troponin T C-Reactive Protein Total Protein 4.0 L Albumin 1.8 L Triglycerides HDL Cholesterol Miscellaneous Test Crossmatch 09/16/17 09/16/17 09/16/17 05:30 05:30 05:54 WBC 24.6 H RBC 3.22 L Hgb 9.8 L Hct 28.6 L MCV MCH MCHC RDW 17.4 H Plt Count 127 L Lymph % (Auto) [place] % (Auto) [place] # Seg Neutrophils % Seg Neuts % (Manual) Lymphocytes % (Manual) Monocytes % (Manual) Nucleated RBC % Seg Neutrophils # Seg Neutrophils # Man Lymphocytes # (Manual) Monocytes # (Manual) Eosinophils # (Manual) Basophils # (Manual) PT INR POC ABG pH ABG pH POC ABG pCO2 POC ABG pO2 ABG pO2 ABG O2 Saturation ABG Base Excess ABG Hemoglobin Oxyhemoglobin Sodium Potassium Chloride Carbon Dioxide 18 L BUN 109 H Creatinine 2.5 H Glucose 140 H POC Glucose 154 H Calcium Phosphorus 4.80 H Magnesium Iron TIBC Ferritin Total Bilirubin 2.40 H AST 90 H ALT Alkaline Phosphatase 298 H Total Creatine Kinase 20 L Troponin T C-Reactive Protein Total Protein 4.1 L Albumin 1.8 L Triglycerides HDL Cholesterol Miscellaneous Test Crossmatch 09/16/17 09/16/17 09/16/17 11:49 17:04 23:18 WBC RBC Hgb Hct MCV MCH MCHC RDW Plt Count Lymph % (Auto) [place] % (Auto) [place] # Seg Neutrophils % Seg Neuts % (Manual) Lymphocytes % (Manual) Monocytes % (Manual) Nucleated RBC % Seg Neutrophils # Seg Neutrophils # Man Lymphocytes # (Manual) Monocytes # (Manual) Eosinophils # (Manual) Basophils # (Manual) PT INR POC ABG pH ABG pH POC ABG pCO2 POC ABG pO2 ABG pO2 ABG O2 Saturation ABG Base Excess ABG Hemoglobin Oxyhemoglobin Sodium Potassium Chloride Carbon Dioxide BUN Creatinine Glucose POC Glucose 167 H 156 H 162 H Calcium Phosphorus Magnesium Iron TIBC Ferritin Total Bilirubin AST ALT Alkaline Phosphatase Total Creatine Kinase Troponin T C-Reactive Protein Total Protein Albumin Triglycerides HDL Cholesterol Miscellaneous Test Crossmatch 09/17/17 09/17/17 09/17/17 05:27 06:10 06:10 WBC 34.6 H RBC 2.75 L Hgb 8.4 L Hct 24.8 L MCV MCH MCHC RDW 18.3 H Plt Count Lymph % (Auto) [place] % (Auto) [place] # Seg Neutrophils % Seg Neuts % (Manual) 77.0 H Lymphocytes % (Manual) 5.0 L Monocytes % (Manual) Nucleated RBC % 2.0 H Seg Neutrophils # Seg Neutrophils # Man 26.6 H Lymphocytes # (Manual) Monocytes # (Manual) 2.4 H Eosinophils # (Manual) Basophils # (Manual) PT INR POC ABG pH ABG pH POC ABG pCO2 POC ABG pO2 ABG pO2 ABG O2 Saturation ABG Base Excess ABG Hemoglobin Oxyhemoglobin Sodium Potassium Chloride Carbon Dioxide BUN 82 H Creatinine 2.1 H Glucose 252 H POC Glucose 243 H Calcium 8.3 L Phosphorus Magnesium Iron TIBC Ferritin Total Bilirubin AST ALT Alkaline Phosphatase Total Creatine Kinase Troponin T C-Reactive Protein Total Protein Albumin Triglycerides HDL Cholesterol Miscellaneous Test Crossmatch 09/17/17 09/17/17 09/18/17 11:42 17:12 00:08 WBC RBC Hgb Hct MCV MCH MCHC RDW Plt Count Lymph % (Auto) [place] % (Auto) [place] # Seg Neutrophils % Seg Neuts % (Manual) Lymphocytes % (Manual) Monocytes % (Manual) Nucleated RBC % Seg Neutrophils # Seg Neutrophils # Man Lymphocytes # (Manual) Monocytes # (Manual) Eosinophils # (Manual) Basophils # (Manual) PT INR POC ABG pH ABG pH POC ABG pCO2 POC ABG pO2 ABG pO2 ABG O2 Saturation ABG Base Excess ABG Hemoglobin Oxyhemoglobin Sodium Potassium Chloride Carbon Dioxide BUN Creatinine Glucose POC Glucose 232 H 309 H 275 H Calcium Phosphorus Magnesium Iron TIBC Ferritin Total Bilirubin AST ALT Alkaline Phosphatase Total Creatine Kinase Troponin T C-Reactive Protein Total Protein Albumin Triglycerides HDL Cholesterol Miscellaneous Test Crossmatch 09/18/17 09/18/17 09/18/17 05:10 05:10 05:23 WBC 24.4 H RBC 2.57 L Hgb 7.8 L Hct 23.2 L MCV MCH MCHC RDW 19.5 H Plt Count Lymph % (Auto) [place] % (Auto) [place] # Seg Neutrophils % Seg Neuts % (Manual) 78.0 H Lymphocytes % (Manual) 6.0 L Monocytes % (Manual) Nucleated RBC % 2.0 H Seg Neutrophils # Seg Neutrophils # Man 19.0 H Lymphocytes # (Manual) Monocytes # (Manual) Eosinophils # (Manual) Basophils # (Manual) PT INR POC ABG pH ABG pH POC ABG pCO2 POC ABG pO2 ABG pO2 ABG O2 Saturation ABG Base Excess ABG Hemoglobin Oxyhemoglobin Sodium Potassium Chloride Carbon Dioxide BUN 103 H Creatinine 2.8 H Glucose 173 H POC Glucose 224 H Calcium Phosphorus Magnesium Iron TIBC Ferritin Total Bilirubin AST ALT Alkaline Phosphatase Total Creatine Kinase Troponin T C-Reactive Protein Total Protein Albumin Triglycerides HDL Cholesterol Miscellaneous Test Crossmatch 09/18/17 09/18/17 09/18/17 13:59 18:35 23:19 WBC RBC Hgb Hct MCV MCH MCHC RDW Plt Count Lymph % (Auto) [place] % (Auto) [place] # Seg Neutrophils % Seg Neuts % (Manual) Lymphocytes % (Manual) Monocytes % (Manual) Nucleated RBC % Seg Neutrophils # Seg Neutrophils # Man Lymphocytes # (Manual) Monocytes # (Manual) Eosinophils # (Manual) Basophils # (Manual) PT INR POC ABG pH ABG pH POC ABG pCO2 POC ABG pO2 ABG pO2 ABG O2 Saturation ABG Base Excess ABG Hemoglobin Oxyhemoglobin Sodium Potassium Chloride Carbon Dioxide BUN Creatinine Glucose POC Glucose 268 H 220 H 188 H Calcium Phosphorus Magnesium Iron TIBC Ferritin Total Bilirubin AST ALT Alkaline Phosphatase Total Creatine Kinase Troponin T C-Reactive Protein Total Protein Albumin Triglycerides HDL Cholesterol Miscellaneous Test Crossmatch 09/19/17 09/19/17 09/19/17 05:45 06:00 11:41 WBC 17.6 H RBC 2.57 L Hgb 7.9 L Hct 23.2 L MCV MCH MCHC RDW 19.0 H Plt Count Lymph % (Auto) [place] % (Auto) [place] # Seg Neutrophils % Seg Neuts % (Manual) Lymphocytes % (Manual) 9.0 L Monocytes % (Manual) Nucleated RBC % Seg Neutrophils # Seg Neutrophils # Man 11.4 H Lymphocytes # (Manual) Monocytes # (Manual) 0.9 H Eosinophils # (Manual) Basophils # (Manual) PT INR POC ABG pH ABG pH POC ABG pCO2 POC ABG pO2 ABG pO2 ABG O2 Saturation ABG Base Excess ABG Hemoglobin Oxyhemoglobin Sodium Potassium Chloride Carbon Dioxide BUN Creatinine Glucose POC Glucose 178 H 126 H Calcium Phosphorus Magnesium Iron TIBC Ferritin Total Bilirubin AST ALT Alkaline Phosphatase Total Creatine Kinase Troponin T C-Reactive Protein Total Protein Albumin Triglycerides HDL Cholesterol Miscellaneous Test Crossmatch 09/19/17 09/19/17 09/20/17 17:08 23:46 04:46 WBC RBC Hgb Hct MCV MCH MCHC RDW Plt Count Lymph % (Auto) [place] % (Auto) [place] # Seg Neutrophils % Seg Neuts % (Manual) Lymphocytes % (Manual) Monocytes % (Manual) Nucleated RBC % Seg Neutrophils # Seg Neutrophils # Man Lymphocytes # (Manual) Monocytes # (Manual) Eosinophils # (Manual) Basophils # (Manual) PT INR POC ABG pH ABG pH POC ABG pCO2 POC ABG pO2 ABG pO2 ABG O2 Saturation ABG Base Excess ABG Hemoglobin Oxyhemoglobin Sodium Potassium 5.2 H D Chloride 97.4 L Carbon Dioxide 20 L BUN 98 H Creatinine 2.4 H Glucose 187 H POC Glucose 263 H 161 H Calcium Phosphorus Magnesium Iron TIBC Ferritin Total Bilirubin AST ALT Alkaline Phosphatase Total Creatine Kinase Troponin T C-Reactive Protein Total Protein Albumin Triglycerides HDL Cholesterol Miscellaneous Test Crossmatch 09/20/17 09/20/17 09/20/17 05:38 11:36 11:41 WBC 24.5 H RBC 2.84 L Hgb 8.2 L Hct 26.2 L MCV MCH MCHC RDW 20.0 H Plt Count 470 H Lymph % (Auto) [place] % (Auto) [place] # Seg Neutrophils % Seg Neuts % (Manual) Lymphocytes % (Manual) Monocytes % (Manual) Nucleated RBC % Seg Neutrophils # Seg Neutrophils # Man Lymphocytes # (Manual) Monocytes # (Manual) Eosinophils # (Manual) Basophils # (Manual) PT INR POC ABG pH ABG pH POC ABG pCO2 POC ABG pO2 ABG pO2 ABG O2 Saturation ABG Base Excess ABG Hemoglobin Oxyhemoglobin Sodium Potassium Chloride Carbon Dioxide BUN Creatinine Glucose POC Glucose 215 H 220 H Calcium Phosphorus Magnesium Iron TIBC Ferritin Total Bilirubin AST ALT Alkaline Phosphatase Total Creatine Kinase Troponin T C-Reactive Protein Total Protein Albumin Triglycerides HDL Cholesterol Miscellaneous Test Crossmatch 09/20/17 09/21/17 09/21/17 17:45 00:51 04:00 WBC RBC Hgb Hct MCV MCH MCHC RDW Plt Count Lymph % (Auto) [place] % (Auto) [place] # Seg Neutrophils % Seg Neuts % (Manual) Lymphocytes % (Manual) Monocytes % (Manual) Nucleated RBC % Seg Neutrophils # Seg Neutrophils # Man Lymphocytes # (Manual) Monocytes # (Manual) Eosinophils # (Manual) Basophils # (Manual) PT INR POC ABG pH ABG pH POC ABG pCO2 POC ABG pO2 ABG pO2 ABG O2 Saturation ABG Base Excess ABG Hemoglobin Oxyhemoglobin Sodium Potassium 3.2 L D Chloride 96.4 L Carbon Dioxide BUN 63 H Creatinine 1.8 H Glucose 204 H POC Glucose 122 H 137 H Calcium 8.3 L Phosphorus 2.10 L D Magnesium 1.50 L Iron TIBC Ferritin Total Bilirubin AST ALT Alkaline Phosphatase Total Creatine Kinase Troponin T C-Reactive Protein Total Protein Albumin Triglycerides HDL Cholesterol Miscellaneous Test Crossmatch 09/21/17 09/21/17 09/21/17 05:45 08:30 11:50 WBC 27.5 H RBC 2.52 L Hgb 7.7 L Hct 22.8 L MCV MCH MCHC RDW 19.2 H Plt Count 457 H Lymph % (Auto) [place] % (Auto) [place] # Seg Neutrophils % Seg Neuts % (Manual) Lymphocytes % (Manual) Monocytes % (Manual) Nucleated RBC % Seg Neutrophils # Seg Neutrophils # Man Lymphocytes # (Manual) Monocytes # (Manual) Eosinophils # (Manual) Basophils # (Manual) PT INR POC ABG pH ABG pH POC ABG pCO2 POC ABG pO2 ABG pO2 ABG O2 Saturation ABG Base Excess ABG Hemoglobin Oxyhemoglobin Sodium Potassium Chloride Carbon Dioxide BUN Creatinine Glucose POC Glucose 243 H Calcium Phosphorus Magnesium Iron TIBC Ferritin Total Bilirubin AST ALT Alkaline Phosphatase Total Creatine Kinase Troponin T C-Reactive Protein Total Protein Albumin Triglycerides HDL Cholesterol Miscellaneous Test Crossmatch See Detail 09/21/17 09/21/17 09/22/17 13:03 16:39 00:09 WBC RBC Hgb Hct MCV MCH MCHC RDW Plt Count Lymph % (Auto) [place] % (Auto) [place] # Seg Neutrophils % Seg Neuts % (Manual) Lymphocytes % (Manual) Monocytes % (Manual) Nucleated RBC % Seg Neutrophils # Seg Neutrophils # Man Lymphocytes # (Manual) Monocytes # (Manual) Eosinophils # (Manual) Basophils # (Manual) PT INR POC ABG pH ABG pH POC ABG pCO2 POC ABG pO2 ABG pO2 ABG O2 Saturation ABG Base Excess ABG Hemoglobin Oxyhemoglobin Sodium Potassium Chloride Carbon Dioxide BUN Creatinine Glucose POC Glucose 271 H 160 H 191 H Calcium Phosphorus Magnesium Iron TIBC Ferritin Total Bilirubin AST ALT Alkaline Phosphatase Total Creatine Kinase Troponin T C-Reactive Protein Total Protein Albumin Triglycerides HDL Cholesterol Miscellaneous Test Crossmatch 09/22/17 09/22/17 09/22/17 03:37 05:40 07:35 WBC 29.7 H RBC 2.71 L Hgb 8.1 L Hct 24.1 L MCV MCH MCHC RDW 19.6 H Plt Count 491 H Lymph % (Auto) [place] % (Auto) [place] # Seg Neutrophils % Seg Neuts % (Manual) 70.5 H Lymphocytes % (Manual) 12.5 L Monocytes % (Manual) 10.0 H Nucleated RBC % 2.0 H Seg Neutrophils # Seg Neutrophils # Man 20.9 H Lymphocytes # (Manual) Monocytes # (Manual) 3.0 H Eosinophils # (Manual) Basophils # (Manual) PT INR POC ABG pH ABG pH POC ABG pCO2 POC ABG pO2 ABG pO2 ABG O2 Saturation ABG Base Excess ABG Hemoglobin Oxyhemoglobin Sodium Potassium 3.0 L Chloride 95.9 L Carbon Dioxide BUN 74 H Creatinine 2.1 H Glucose 126 H POC Glucose 150 H Calcium Phosphorus 2.10 L Magnesium 1.40 L Iron TIBC Ferritin Total Bilirubin AST ALT Alkaline Phosphatase 311 H Total Creatine Kinase Troponin T C-Reactive Protein Total Protein 4.4 L Albumin 2.0 L Triglycerides HDL Cholesterol Miscellaneous Test Crossmatch 09/22/17 09/23/17 09/23/17 12:20 05:02 05:02 WBC 37.5 H RBC 2.54 L Hgb 7.3 L Hct 22.9 L MCV MCH MCHC RDW 19.4 H Plt Count 471 H Lymph % (Auto) [place] % (Auto) [place] # Seg Neutrophils % Seg Neuts % (Manual) Lymphocytes % (Manual) 8.0 L Monocytes % (Manual) Nucleated RBC % 1.0 H Seg Neutrophils # Seg Neutrophils # Man 15.0 H Lymphocytes # (Manual) Monocytes # (Manual) 1.9 H Eosinophils # (Manual) Basophils # (Manual) PT INR POC ABG pH ABG pH POC ABG pCO2 POC ABG pO2 ABG pO2 ABG O2 Saturation ABG Base Excess ABG Hemoglobin Oxyhemoglobin Sodium 136 L Potassium 3.0 L Chloride 93.8 L Carbon Dioxide BUN 99 H Creatinine 2.7 H Glucose POC Glucose 106 H Calcium 8.2 L Phosphorus 2.40 L Magnesium Iron TIBC Ferritin Total Bilirubin AST ALT Alkaline Phosphatase Total Creatine Kinase Troponin T C-Reactive Protein Total Protein Albumin Triglycerides HDL Cholesterol Miscellaneous Test Crossmatch 09/23/17 09/23/17 09/23/17 05:39 11:21 18:19 WBC RBC Hgb Hct MCV MCH MCHC RDW Plt Count Lymph % (Auto) [place] % (Auto) [place] # Seg Neutrophils % Seg Neuts % (Manual) Lymphocytes % (Manual) Monocytes % (Manual) Nucleated RBC % Seg Neutrophils # Seg Neutrophils # Man Lymphocytes # (Manual) Monocytes # (Manual) Eosinophils # (Manual) Basophils # (Manual) PT INR POC ABG pH ABG pH POC ABG pCO2 POC ABG pO2 ABG pO2 ABG O2 Saturation ABG Base Excess ABG Hemoglobin Oxyhemoglobin Sodium Potassium Chloride Carbon Dioxide BUN Creatinine Glucose POC Glucose 118 H 130 H 189 H Calcium Phosphorus Magnesium Iron TIBC Ferritin Total Bilirubin AST ALT Alkaline Phosphatase Total Creatine Kinase Troponin T C-Reactive Protein Total Protein Albumin Triglycerides HDL Cholesterol Miscellaneous Test Crossmatch 09/23/17 09/24/17 09/24/17 23:55 04:00 04:00 WBC 37.8 H RBC 2.76 L Hgb 8.1 L Hct 24.8 L MCV MCH MCHC RDW 19.8 H Plt Count 539 H Lymph % (Auto) [place] % (Auto) [place] # Seg Neutrophils % Seg Neuts % (Manual) Lymphocytes % (Manual) 4.0 L Monocytes % (Manual) Nucleated RBC % 6.0 H Seg Neutrophils # Seg Neutrophils # Man 19.3 H Lymphocytes # (Manual) Monocytes # (Manual) 1.5 H Eosinophils # (Manual) Basophils # (Manual) 0.4 H PT INR POC ABG pH ABG pH POC ABG pCO2 POC ABG pO2 ABG pO2 ABG O2 Saturation ABG Base Excess ABG Hemoglobin Oxyhemoglobin Sodium Potassium 3.5 L Chloride 95.2 L Carbon Dioxide BUN 67 H Creatinine 1.9 H Glucose 140 H POC Glucose 120 H Calcium 8.2 L Phosphorus 2.00 L Magnesium Iron TIBC Ferritin Total Bilirubin AST ALT Alkaline Phosphatase Total Creatine Kinase Troponin T C-Reactive Protein Total Protein Albumin Triglycerides HDL Cholesterol Miscellaneous Test Crossmatch 09/24/17 09/24/17 09/24/17 04:00 05:33 12:16 WBC RBC Hgb Hct MCV MCH MCHC RDW Plt Count Lymph % (Auto) [place] % (Auto) [place] # Seg Neutrophils % Seg Neuts % (Manual) Lymphocytes % (Manual) Monocytes % (Manual) Nucleated RBC % Seg Neutrophils # Seg Neutrophils # Man Lymphocytes # (Manual) Monocytes # (Manual) Eosinophils # (Manual) Basophils # (Manual) PT INR POC ABG pH ABG pH POC ABG pCO2 POC ABG pO2 ABG pO2 ABG O2 Saturation ABG Base Excess ABG Hemoglobin Oxyhemoglobin Sodium Potassium Chloride Carbon Dioxide BUN Creatinine Glucose POC Glucose 178 H 262 H Calcium Phosphorus Magnesium Iron TIBC Ferritin Total Bilirubin AST ALT Alkaline Phosphatase Total Creatine Kinase Troponin T C-Reactive Protein Total Protein Albumin Triglycerides HDL Cholesterol Miscellaneous Test Crossmatch See Detail 09/24/17 09/24/17 09/25/17 17:51 23:33 06:03 WBC RBC Hgb Hct MCV MCH MCHC RDW Plt Count Lymph % (Auto) [place] % (Auto) [place] # Seg Neutrophils % Seg Neuts % (Manual) Lymphocytes % (Manual) Monocytes % (Manual) Nucleated RBC % Seg Neutrophils # Seg Neutrophils # Man Lymphocytes # (Manual) Monocytes # (Manual) Eosinophils # (Manual) Basophils # (Manual) PT INR POC ABG pH ABG pH POC ABG pCO2 POC ABG pO2 ABG pO2 ABG O2 Saturation ABG Base Excess ABG Hemoglobin Oxyhemoglobin Sodium Potassium Chloride Carbon Dioxide BUN Creatinine Glucose POC Glucose 166 H 142 H 173 H Calcium Phosphorus Magnesium Iron TIBC Ferritin Total Bilirubin AST ALT Alkaline Phosphatase Total Creatine Kinase Troponin T C-Reactive Protein Total Protein Albumin Triglycerides HDL Cholesterol Miscellaneous Test Crossmatch 09/25/17 09/25/17 09/25/17 07:49 07:49 11:36 WBC 59.6 H* RBC 2.63 L Hgb 7.7 L Hct 26.0 L MCV 99 H MCH MCHC RDW 21.8 H Plt Count Lymph % (Auto) [place] % (Auto) [place] # Seg Neutrophils % Seg Neuts % (Manual) Lymphocytes % (Manual) 2.0 L Monocytes % (Manual) Nucleated RBC % 8.0 H Seg Neutrophils # Seg Neutrophils # Man 41.7 H Lymphocytes # (Manual) Monocytes # (Manual) 1.2 H Eosinophils # (Manual) Basophils # (Manual) PT INR POC ABG pH ABG pH POC ABG pCO2 POC ABG pO2 ABG pO2 ABG O2 Saturation ABG Base Excess ABG Hemoglobin Oxyhemoglobin Sodium Potassium 5.3 H D Chloride 97.7 L Carbon Dioxide 19 L BUN 90 H Creatinine 2.5 H Glucose 181 H POC Glucose 308 H Calcium 8.0 L Phosphorus Magnesium Iron TIBC Ferritin Total Bilirubin AST ALT Alkaline Phosphatase Total Creatine Kinase Troponin T C-Reactive Protein Total Protein Albumin Triglycerides HDL Cholesterol Miscellaneous Test Crossmatch 09/25/17 09/25/17 09/26/17 16:11 23:38 05:25 WBC 61.9 H* RBC 2.30 L Hgb 7.0 L Hct 21.4 L MCV MCH MCHC RDW 21.3 H Plt Count Lymph % (Auto) [place] % (Auto) [place] # Seg Neutrophils % Seg Neuts % (Manual) Lymphocytes % (Manual) 1.0 L Monocytes % (Manual) Nucleated RBC % 7.0 H Seg Neutrophils # Seg Neutrophils # Man 37.1 H Lymphocytes # (Manual) 0.6 L Monocytes # (Manual) 1.9 H Eosinophils # (Manual) Basophils # (Manual) PT INR POC ABG pH ABG pH POC ABG pCO2 POC ABG pO2 ABG pO2 ABG O2 Saturation ABG Base Excess ABG Hemoglobin Oxyhemoglobin Sodium Potassium Chloride Carbon Dioxide BUN Creatinine Glucose POC Glucose 249 H 263 H Calcium Phosphorus Magnesium Iron TIBC Ferritin Total Bilirubin AST ALT Alkaline Phosphatase Total Creatine Kinase Troponin T C-Reactive Protein Total Protein Albumin Triglycerides HDL Cholesterol Miscellaneous Test Crossmatch 09/26/17 09/26/17 09/26/17 05:25 05:32 11:33 WBC RBC Hgb Hct MCV MCH MCHC RDW Plt Count Lymph % (Auto) [place] % (Auto) [place] # Seg Neutrophils % Seg Neuts % (Manual) Lymphocytes % (Manual) Monocytes % (Manual) Nucleated RBC % Seg Neutrophils # Seg Neutrophils # Man Lymphocytes # (Manual) Monocytes # (Manual) Eosinophils # (Manual) Basophils # (Manual) PT INR POC ABG pH ABG pH POC ABG pCO2 POC ABG pO2 ABG pO2 ABG O2 Saturation ABG Base Excess ABG Hemoglobin Oxyhemoglobin Sodium Potassium Chloride Carbon Dioxide 21 L BUN 81 H Creatinine 2.3 H Glucose 178 H POC Glucose 225 H 246 H Calcium 8.1 L Phosphorus Magnesium Iron TIBC Ferritin Total Bilirubin AST ALT Alkaline Phosphatase Total Creatine Kinase Troponin T C-Reactive Protein Total Protein Albumin Triglycerides HDL Cholesterol Miscellaneous Test Crossmatch 09/26/17 09/27/17 09/27/17 17:43 00:11 04:00 WBC 63.0 H* RBC 2.23 L Hgb 6.3 L Hct 20.6 L MCV MCH MCHC RDW 20.6 H Plt Count Lymph % (Auto) [place] % (Auto) [place] # Seg Neutrophils % Seg Neuts % (Manual) Lymphocytes % (Manual) 3.0 L Monocytes % (Manual) Nucleated RBC % 6.0 H Seg Neutrophils # Seg Neutrophils # Man 40.3 H Lymphocytes # (Manual) Monocytes # (Manual) 4.4 H Eosinophils # (Manual) Basophils # (Manual) PT INR POC ABG pH ABG pH POC ABG pCO2 POC ABG pO2 ABG pO2 ABG O2 Saturation ABG Base Excess ABG Hemoglobin Oxyhemoglobin Sodium Potassium Chloride Carbon Dioxide BUN Creatinine Glucose POC Glucose 180 H 194 H Calcium Phosphorus Magnesium Iron TIBC Ferritin Total Bilirubin AST ALT Alkaline Phosphatase Total Creatine Kinase Troponin T C-Reactive Protein Total Protein Albumin Triglycerides HDL Cholesterol Miscellaneous Test Crossmatch 09/27/17 09/27/17 09/27/17 04:00 04:00 05:11 WBC RBC Hgb Hct MCV MCH MCHC RDW Plt Count Lymph % (Auto) [place] % (Auto) [place] # Seg Neutrophils % Seg Neuts % (Manual) Lymphocytes % (Manual) Monocytes % (Manual) Nucleated RBC % Seg Neutrophils # Seg Neutrophils # Man Lymphocytes # (Manual) Monocytes # (Manual) Eosinophils # (Manual) Basophils # (Manual) PT INR POC ABG pH ABG pH POC ABG pCO2 POC ABG pO2 ABG pO2 ABG O2 Saturation ABG Base Excess ABG Hemoglobin Oxyhemoglobin Sodium Potassium Chloride Carbon Dioxide 19 L BUN 102 H Creatinine 2.8 H Glucose 141 H POC Glucose 189 H Calcium 8.1 L Phosphorus Magnesium 2.40 H Iron TIBC Ferritin Total Bilirubin AST ALT Alkaline Phosphatase Total Creatine Kinase Troponin T C-Reactive Protein Total Protein Albumin Triglycerides HDL Cholesterol Miscellaneous Test Crossmatch 09/27/17 09/27/17 09/27/17 08:58 11:54 17:20 WBC RBC Hgb Hct MCV MCH MCHC RDW Plt Count Lymph % (Auto) [place] % (Auto) [place] # Seg Neutrophils % Seg Neuts % (Manual) Lymphocytes % (Manual) Monocytes % (Manual) Nucleated RBC % Seg Neutrophils # Seg Neutrophils # Man Lymphocytes # (Manual) Monocytes # (Manual) Eosinophils # (Manual) Basophils # (Manual) PT INR POC ABG pH ABG pH POC ABG pCO2 POC ABG pO2 ABG pO2 ABG O2 Saturation ABG Base Excess ABG Hemoglobin Oxyhemoglobin Sodium Potassium Chloride Carbon Dioxide BUN Creatinine Glucose POC Glucose 196 H 199 H Calcium Phosphorus Magnesium Iron TIBC Ferritin Total Bilirubin AST ALT Alkaline Phosphatase Total Creatine Kinase Troponin T C-Reactive Protein Total Protein Albumin Triglycerides HDL Cholesterol Miscellaneous Test Crossmatch See Detail 09/28/17 09/28/17 09/28/17 00:11 05:23 12:07 WBC RBC Hgb Hct MCV MCH MCHC RDW Plt Count Lymph % (Auto) [place] % (Auto) [place] # Seg Neutrophils % Seg Neuts % (Manual) Lymphocytes % (Manual) Monocytes % (Manual) Nucleated RBC % Seg Neutrophils # Seg Neutrophils # Man Lymphocytes # (Manual) Monocytes # (Manual) Eosinophils # (Manual) Basophils # (Manual) PT INR POC ABG pH ABG pH POC ABG pCO2 POC ABG pO2 ABG pO2 ABG O2 Saturation ABG Base Excess ABG Hemoglobin Oxyhemoglobin Sodium Potassium Chloride Carbon Dioxide BUN Creatinine Glucose POC Glucose 155 H 237 H 218 H Calcium Phosphorus Magnesium Iron TIBC Ferritin Total Bilirubin AST ALT Alkaline Phosphatase Total Creatine Kinase Troponin T C-Reactive Protein Total Protein Albumin Triglycerides HDL Cholesterol Miscellaneous Test Crossmatch 09/28/17 09/28/17 09/28/17 17:58 Unknown Unknown WBC 39.0 H RBC 3.10 L Hgb 9.6 L D Hct 27.6 L D MCV MCH MCHC 35 H RDW 17.1 H Plt Count Lymph % (Auto) [place] % (Auto) [place] # Seg Neutrophils % Seg Neuts % (Manual) 80.5 H Lymphocytes % (Manual) 0.5 L Monocytes % (Manual) Nucleated RBC % Seg Neutrophils # Seg Neutrophils # Man 31.4 H Lymphocytes # (Manual) 0.2 L Monocytes # (Manual) 2.5 H Eosinophils # (Manual) Basophils # (Manual) PT INR POC ABG pH ABG pH POC ABG pCO2 POC ABG pO2 ABG pO2 ABG O2 Saturation ABG Base Excess ABG Hemoglobin Oxyhemoglobin Sodium Potassium 3.4 L D Chloride Carbon Dioxide BUN 72 H Creatinine 2.0 H Glucose 194 H POC Glucose 108 H Calcium 7.4 L Phosphorus Magnesium Iron TIBC Ferritin Total Bilirubin AST ALT Alkaline Phosphatase Total Creatine Kinase Troponin T C-Reactive Protein Total Protein Albumin Triglycerides HDL Cholesterol Miscellaneous Test Crossmatch 09/29/17 09/29/17 09/29/17 00:12 06:00 06:00 WBC 28.0 H RBC 2.92 L Hgb 8.7 L Hct 26.5 L MCV MCH MCHC RDW 17.1 H Plt Count Lymph % (Auto) [place] % (Auto) [place] # Seg Neutrophils % Seg Neuts % (Manual) 74.5 H Lymphocytes % (Manual) 5.5 L Monocytes % (Manual) 10.5 H Nucleated RBC % Seg Neutrophils # Seg Neutrophils # Man 20.9 H Lymphocytes # (Manual) Monocytes # (Manual) 2.9 H Eosinophils # (Manual) Basophils # (Manual) PT INR POC ABG pH ABG pH POC ABG pCO2 POC ABG pO2 ABG pO2 ABG O2 Saturation ABG Base Excess ABG Hemoglobin Oxyhemoglobin Sodium Potassium Chloride 97.9 L Carbon Dioxide BUN 101 H Creatinine 2.5 H Glucose 177 H POC Glucose 117 H Calcium 7.6 L Phosphorus Magnesium Iron TIBC Ferritin Total Bilirubin AST ALT Alkaline Phosphatase Total Creatine Kinase Troponin T C-Reactive Protein Total Protein Albumin Triglycerides HDL Cholesterol Miscellaneous Test Crossmatch 09/29/17 09/29/17 09/29/17 06:27 11:50 17:27 WBC RBC Hgb Hct MCV MCH MCHC RDW Plt Count Lymph % (Auto) [place] % (Auto) [place] # Seg Neutrophils % Seg Neuts % (Manual) Lymphocytes % (Manual) Monocytes % (Manual) Nucleated RBC % Seg Neutrophils # Seg Neutrophils # Man Lymphocytes # (Manual) Monocytes # (Manual) Eosinophils # (Manual) Basophils # (Manual) PT INR POC ABG pH ABG pH POC ABG pCO2 POC ABG pO2 ABG pO2 ABG O2 Saturation ABG Base Excess ABG Hemoglobin Oxyhemoglobin Sodium Potassium Chloride Carbon Dioxide BUN Creatinine Glucose POC Glucose 183 H 209 H 150 H Calcium Phosphorus Magnesium Iron TIBC Ferritin Total Bilirubin AST ALT Alkaline Phosphatase Total Creatine Kinase Troponin T C-Reactive Protein Total Protein Albumin Triglycerides HDL Cholesterol Miscellaneous Test Crossmatch 09/30/17 09/30/17 09/30/17 05:20 05:20 05:31 WBC 23.0 H RBC 2.64 L Hgb 7.9 L Hct 23.9 L MCV MCH MCHC RDW 18.1 H Plt Count Lymph % (Auto) [place] % (Auto) [place] # Seg Neutrophils % Seg Neuts % (Manual) 29.0 L Lymphocytes % (Manual) Monocytes % (Manual) 11.0 H Nucleated RBC % Seg Neutrophils # Seg Neutrophils # Man Lymphocytes # (Manual) Monocytes # (Manual) 2.5 H Eosinophils # (Manual) Basophils # (Manual) PT INR POC ABG pH ABG pH POC ABG pCO2 POC ABG pO2 ABG pO2 ABG O2 Saturation ABG Base Excess ABG Hemoglobin Oxyhemoglobin Sodium Potassium Chloride 97.0 L Carbon Dioxide 20 L BUN 120 H Creatinine 2.9 H Glucose 126 H POC Glucose 143 H Calcium 8.2 L Phosphorus Magnesium Iron TIBC Ferritin Total Bilirubin AST ALT Alkaline Phosphatase Total Creatine Kinase Troponin T C-Reactive Protein Total Protein Albumin Triglycerides HDL Cholesterol Miscellaneous Test Crossmatch 09/30/17 09/30/17 10/01/17 11:24 23:40 05:45 WBC RBC Hgb Hct MCV MCH MCHC RDW Plt Count Lymph % (Auto) [place] % (Auto) [place] # Seg Neutrophils % Seg Neuts % (Manual) Lymphocytes % (Manual) Monocytes % (Manual) Nucleated RBC % Seg Neutrophils # Seg Neutrophils # Man Lymphocytes # (Manual) Monocytes # (Manual) Eosinophils # (Manual) Basophils # (Manual) PT INR POC ABG pH ABG pH POC ABG pCO2 POC ABG pO2 ABG pO2 ABG O2 Saturation ABG Base Excess ABG Hemoglobin Oxyhemoglobin Sodium Potassium Chloride Carbon Dioxide BUN 83 H Creatinine 2.2 H Glucose 140 H POC Glucose 197 H 121 H Calcium Phosphorus 2.40 L D Magnesium Iron TIBC Ferritin Total Bilirubin AST ALT Alkaline Phosphatase Total Creatine Kinase Troponin T C-Reactive Protein Total Protein Albumin Triglycerides HDL Cholesterol Miscellaneous Test Crossmatch 10/01/17 10/01/17 10/01/17 05:45 05:48 12:29 WBC 23.0 H RBC 2.60 L Hgb 7.8 L Hct 23.8 L MCV MCH MCHC RDW 17.5 H Plt Count Lymph % (Auto) [place] % (Auto) [place] # Seg Neutrophils % Seg Neuts % (Manual) 81.0 H Lymphocytes % (Manual) 2.0 L Monocytes % (Manual) 10.0 H Nucleated RBC % Seg Neutrophils # Seg Neutrophils # Man 18.6 H Lymphocytes # (Manual) 0.5 L Monocytes # (Manual) 2.3 H Eosinophils # (Manual) Basophils # (Manual) PT INR POC ABG pH ABG pH POC ABG pCO2 POC ABG pO2 ABG pO2 ABG O2 Saturation ABG Base Excess ABG Hemoglobin Oxyhemoglobin Sodium Potassium Chloride Carbon Dioxide BUN Creatinine Glucose POC Glucose 123 H 191 H Calcium Phosphorus Magnesium Iron TIBC Ferritin Total Bilirubin AST ALT Alkaline Phosphatase Total Creatine Kinase Troponin T C-Reactive Protein Total Protein Albumin Triglycerides HDL Cholesterol Miscellaneous Test Crossmatch 10/01/17 10/02/17 10/02/17 17:46 05:00 05:27 WBC RBC Hgb Hct MCV MCH MCHC RDW Plt Count Lymph % (Auto) [place] % (Auto) [place] # Seg Neutrophils % Seg Neuts % (Manual) Lymphocytes % (Manual) Monocytes % (Manual) Nucleated RBC % Seg Neutrophils # Seg Neutrophils # Man Lymphocytes # (Manual) Monocytes # (Manual) Eosinophils # (Manual) Basophils # (Manual) PT INR POC ABG pH ABG pH POC ABG pCO2 POC ABG pO2 ABG pO2 ABG O2 Saturation ABG Base Excess ABG Hemoglobin Oxyhemoglobin Sodium Potassium Chloride Carbon Dioxide BUN 108 H Creatinine 2.5 H Glucose 113 H POC Glucose 56 L 120 H Calcium Phosphorus Magnesium Iron TIBC Ferritin Total Bilirubin AST ALT Alkaline Phosphatase Total Creatine Kinase Troponin T C-Reactive Protein Total Protein Albumin Triglycerides HDL Cholesterol Miscellaneous Test Crossmatch 10/02/17 10/02/17 10/02/17 10:05 11:57 19:14 WBC 18.1 H RBC 2.67 L Hgb 8.0 L Hct 24.1 L MCV MCH MCHC RDW 17.1 H Plt Count Lymph % (Auto) [place] % (Auto) [place] # Seg Neutrophils % Seg Neuts % (Manual) Lymphocytes % (Manual) 5.0 L Monocytes % (Manual) 17.0 H Nucleated RBC % Seg Neutrophils # Seg Neutrophils # Man 12.5 H Lymphocytes # (Manual) 0.9 L Monocytes # (Manual) 3.1 H Eosinophils # (Manual) Basophils # (Manual) PT INR POC ABG pH ABG pH POC ABG pCO2 POC ABG pO2 ABG pO2 ABG O2 Saturation ABG Base Excess ABG Hemoglobin Oxyhemoglobin Sodium Potassium Chloride Carbon Dioxide BUN Creatinine Glucose POC Glucose 162 H 189 H Calcium Phosphorus Magnesium Iron TIBC Ferritin Total Bilirubin AST ALT Alkaline Phosphatase Total Creatine Kinase Troponin T C-Reactive Protein Total Protein Albumin Triglycerides HDL Cholesterol Miscellaneous Test Crossmatch 10/02/17 10/03/17 10/03/17 23:50 04:00 06:14 WBC 16.2 H RBC 2.76 L Hgb 8.0 L Hct 24.9 L MCV MCH MCHC RDW 17.1 H Plt Count Lymph % (Auto) [place] % (Auto) [place] # Seg Neutrophils % Seg Neuts % (Manual) 71.0 H Lymphocytes % (Manual) 9.0 L Monocytes % (Manual) 17.0 H Nucleated RBC % Seg Neutrophils # Seg Neutrophils # Man 11.5 H Lymphocytes # (Manual) Monocytes # (Manual) 2.8 H Eosinophils # (Manual) Basophils # (Manual) PT INR POC ABG pH ABG pH POC ABG pCO2 POC ABG pO2 ABG pO2 ABG O2 Saturation ABG Base Excess ABG Hemoglobin Oxyhemoglobin Sodium Potassium Chloride Carbon Dioxide BUN Creatinine Glucose POC Glucose 159 H 162 H Calcium Phosphorus Magnesium Iron TIBC Ferritin Total Bilirubin AST ALT Alkaline Phosphatase Total Creatine Kinase Troponin T C-Reactive Protein Total Protein Albumin Triglycerides HDL Cholesterol Miscellaneous Test Crossmatch 10/03/17 10/03/17 10/03/17 10:05 12:03 17:10 WBC RBC Hgb Hct MCV MCH MCHC RDW Plt Count Lymph % (Auto) [place] % (Auto) [place] # Seg Neutrophils % Seg Neuts % (Manual) Lymphocytes % (Manual) Monocytes % (Manual) Nucleated RBC % Seg Neutrophils # Seg Neutrophils # Man Lymphocytes # (Manual) Monocytes # (Manual) Eosinophils # (Manual) Basophils # (Manual) PT INR POC ABG pH ABG pH POC ABG pCO2 POC ABG pO2 ABG pO2 ABG O2 Saturation ABG Base Excess ABG Hemoglobin Oxyhemoglobin Sodium Potassium Chloride Carbon Dioxide BUN Creatinine Glucose POC Glucose 148 H 168 H 42 L Calcium Phosphorus Magnesium Iron TIBC Ferritin Total Bilirubin AST ALT Alkaline Phosphatase Total Creatine Kinase Troponin T C-Reactive Protein Total Protein Albumin Triglycerides HDL Cholesterol Miscellaneous Test Crossmatch 10/03/17 10/04/17 10/04/17 23:35 00:40 04:47 WBC RBC Hgb Hct MCV MCH MCHC RDW Plt Count Lymph % (Auto) [place] % (Auto) [place] # Seg Neutrophils % Seg Neuts % (Manual) Lymphocytes % (Manual) Monocytes % (Manual) Nucleated RBC % Seg Neutrophils # Seg Neutrophils # Man Lymphocytes # (Manual) Monocytes # (Manual) Eosinophils # (Manual) Basophils # (Manual) PT INR POC ABG pH ABG pH POC ABG pCO2 POC ABG pO2 ABG pO2 ABG O2 Saturation ABG Base Excess ABG Hemoglobin Oxyhemoglobin Sodium Potassium Chloride 96.3 L Carbon Dioxide BUN 92 H Creatinine 2.4 H Glucose 111 H POC Glucose 50 L 113 H Calcium 8.3 L Phosphorus Magnesium 1.50 L Iron TIBC Ferritin Total Bilirubin AST ALT Alkaline Phosphatase Total Creatine Kinase Troponin T C-Reactive Protein Total Protein Albumin Triglycerides HDL Cholesterol Miscellaneous Test Crossmatch 10/04/17 10/04/17 10/04/17 04:47 05:19 09:53 WBC 18.9 H RBC 2.58 L Hgb 7.8 L Hct 23.1 L MCV MCH MCHC RDW 17.2 H Plt Count Lymph % (Auto) [place] % (Auto) [place] # Seg Neutrophils % Seg Neuts % (Manual) Lymphocytes % (Manual) 11.0 L Monocytes % (Manual) 22.0 H Nucleated RBC % Seg Neutrophils # Seg Neutrophils # Man 10.4 H Lymphocytes # (Manual) Monocytes # (Manual) 4.2 H Eosinophils # (Manual) Basophils # (Manual) PT INR POC ABG pH ABG pH POC ABG pCO2 POC ABG pO2 ABG pO2 ABG O2 Saturation ABG Base Excess ABG Hemoglobin Oxyhemoglobin Sodium Potassium Chloride Carbon Dioxide BUN Creatinine Glucose POC Glucose 109 H 185 H Calcium Phosphorus Magnesium Iron TIBC Ferritin Total Bilirubin AST ALT Alkaline Phosphatase Total Creatine Kinase Troponin T C-Reactive Protein Total Protein Albumin Triglycerides HDL Cholesterol Miscellaneous Test Crossmatch 10/04/17 10/04/17 10/05/17 17:01 23:19 04:00 WBC RBC Hgb Hct MCV MCH MCHC RDW Plt Count Lymph % (Auto) [place] % (Auto) [place] # Seg Neutrophils % Seg Neuts % (Manual) Lymphocytes % (Manual) Monocytes % (Manual) Nucleated RBC % Seg Neutrophils # Seg Neutrophils # Man Lymphocytes # (Manual) Monocytes # (Manual) Eosinophils # (Manual) Basophils # (Manual) PT INR POC ABG pH ABG pH POC ABG pCO2 POC ABG pO2 ABG pO2 ABG O2 Saturation ABG Base Excess ABG Hemoglobin Oxyhemoglobin Sodium Potassium Chloride Carbon Dioxide 20 L BUN 113 H Creatinine 3.0 H Glucose 229 H POC Glucose 244 H 241 H Calcium Phosphorus Magnesium Iron TIBC Ferritin Total Bilirubin AST ALT Alkaline Phosphatase Total Creatine Kinase Troponin T C-Reactive Protein Total Protein Albumin Triglycerides HDL Cholesterol Miscellaneous Test Crossmatch 10/05/17 10/05/17 04:00 05:16 WBC 14.3 H RBC 2.56 L Hgb 7.7 L Hct 23.2 L MCV MCH MCHC RDW 17.5 H Plt Count Lymph % (Auto) [place] % (Auto) [place] # Seg Neutrophils % Seg Neuts % (Manual) 25.0 L Lymphocytes % (Manual) 12.0 L Monocytes % (Manual) 13.0 H Nucleated RBC % Seg Neutrophils # Seg Neutrophils # Man Lymphocytes # (Manual) Monocytes # (Manual) 1.9 H Eosinophils # (Manual) Basophils # (Manual) PT INR POC ABG pH ABG pH POC ABG pCO2 POC ABG pO2 ABG pO2 ABG O2 Saturation ABG Base Excess ABG Hemoglobin Oxyhemoglobin Sodium Potassium Chloride Carbon Dioxide BUN Creatinine Glucose POC Glucose 247 H Calcium Phosphorus Magnesium Iron TIBC Ferritin Total Bilirubin AST ALT Alkaline Phosphatase Total Creatine Kinase Troponin T C-Reactive Protein Total Protein Albumin Triglycerides HDL Cholesterol Miscellaneous Test Crossmatch
[2017-10-05] MEDS ORDERED: DILAUDID IV NR (10:13)
--- NOTE | 2017-10-05 10:16 | Progress Note ---
Assessment and Plan Assessment: 1) Sepsis with septic shock: still fever and pressors need-Candidemia +/- surgical site infection 2) Initial Bowel obstruction / suspect ?gastric perforation ? peritonitis -S/P Exlap, G-tube placement, EGD, abdominal washout and removal of PD -OR findings - bowel obstruction due to entanglement of PD cath, abscess cavity in LUQ and ? suspect perforation of unclear location 3) Intiial CA-UTI: chronic ivan exchanged every 4 weeks and ureteral stents in place which are exchanged every 6 months 4) Paraplegia 5) ESRD on PD - now on HD 6) Recent pancreatitis 7) Penicillin allergy-has taken keflex w/o problems 8) Presumed Surgical wound infection / dehiscence ? 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 11) Anemia- severe- Hg 6.7 today 12) Colonic perforation -S/P exlap, transverse colectomy, right sided colostomy and wash out on 09/15 -?presumed leak -surgical wound + Kristine and MDR Acinetobacter 13) Small bowell enterotomy leak / peritonitis s/p wash out / biologic mesh placement / closure of small bowel enterotomy on 09/24 14) Candidemia on 09/30 -Nair and HD removed 10/03, new left IJ placed Plan: -continue micafungin -monitor fever and wound drainage - consider re-start meropenem if not better -follow-up repeat blood cultures which has been negative so far -obtain TTE r/o endocarditis - pending -contact isolation -poor prognosis I will be back on Saturday, call me if questions Thank you Dr Frances for your consultation, will follow up with you. Ramya Lang MD Infectious Diseases Specialist [facility] ([facility] M [phone] O [phone] Subjective Date of service: 10/05/17 Principal diagnosis: respiratory failure, sepsis, shock rectal bleeding Interval history: Pt remains on the vent on levophed at 2.5 mcg, on TPN, fentanyl, continues with fever at 102.9. Microbiology: Blood cultures: 08/08 neg 08/12 neg 08/16 neg 08/20 neg 08/29 neg 09/06 neg 09/12 neg 09/30 yeast 2 of 4 bottles 10/03 ngtd Urine cultures: 08/08 10-100K skin grace Respiratory cultures: 08/30 tracheal asp MRSA Wound cultures: 08/26 Staph aureus and Kristine 08/28 MRSA, E faecalis, Kristine albicans 09/20 MDR Acinetobacter and Kristine albicans Stool cultures: Other: 08/08 peritoneal fluid + [employer]/Diphteroids Current Antimicrobials: micafungin 10/02 Previous Antimicrobials: 08/10 levaquin 08/16 vancomycin 08/13 meropenem 08/16 fluconazole Micafungin 08/29 meropenem 08/29 zyvox 09/03 fluconazole 09/03 dapto 09/10 meropenem 09/09-09/22 micafungin 09/11-09/21meropenem 09/25 fluconazole 09/24 Objective - Exam Narrative Exam: General appearance: on the vent via trach Eyes: anicteric sclerae, moist conjunctivae; no lid-lag; PERRLA HENT: Atraumatic; NGT Neck: Trach in place Lungs: moreno rhonchi CV: tachy Abdomen: soft, midline surgical wound + ostomy. Upper wound with erythema and drainage with purulence. MERVIN drains with minimal output, LLQ drain, LUQ drain serosanguenous. G tube to OSD with yellow output per surgical eval. Extremities: + peripheral edema + leg ulcer no drainage Skin: right groin old fem line wound no erythema, no drainage Psych: sedated. Neuro: sedated Lines: right IJ vas cath / Right IJ Nair 08/16 - Constitutional Vitals: Vital Signs Temp Pulse Resp BP Pulse Ox 97.1 F L 109 H 28 H 103/43 100 10/05/17 08:00 10/05/17 09:31 10/05/17 09:31 10/05/17 09:31 10/05/17 09:31 Temperature -Last 24 Hours Temperature 97.1 F Temperature 98.9 F Temperature 99.9 F Temperature 102.1 F Temperature 100.5 F Temperature 99.9 F Temperature 99.9 F - Labs CBC & Chem 7: 10/05/17 04:00 10/05/17 04:00 Labs: Abnormal lab results 10/04/17 10/04/17 10/05/17 Range/Units 17:01 23:19 04:00 WBC (4.5-11.0) K/mm3 RBC (3.65-5.03) M/mm3 Hgb (10.1-14.3) gm/dl Hct (30.3-42.9) % RDW (13.2-15.2) % Seg Neuts % (Manual) (40.0-70.0) % Lymphocytes % (Manual) (13.4-35.0) % Monocytes % (Manual) (0.0-7.3) % Monocytes # (Manual) (0.0-0.8) K/mm3 Carbon Dioxide 20 L (22-30) mmol/L BUN 113 H (7-17) mg/dL Creatinine 3.0 H (0.7-1.2) mg/dL Glucose 229 H (65-100) mg/dL POC Glucose 244 H 241 H (70-105) 10/05/17 10/05/17 Range/Units 04:00 05:16 WBC 14.3 H (4.5-11.0) K/mm3 RBC 2.56 L (3.65-5.03) M/mm3 Hgb 7.7 L (10.1-14.3) gm/dl Hct 23.2 L (30.3-42.9) % RDW 17.5 H (13.2-15.2) % Seg Neuts % (Manual) 25.0 L (40.0-70.0) % Lymphocytes % (Manual) 12.0 L (13.4-35.0) % Monocytes % (Manual) 13.0 H (0.0-7.3) % Monocytes # (Manual) 1.9 H (0.0-0.8) K/mm3 Carbon Dioxide (22-30) mmol/L BUN (7-17) mg/dL Creatinine (0.7-1.2) mg/dL Glucose (65-100) mg/dL POC Glucose 247 H (70-105)
--- NOTE | 2017-10-05 12:03 | Progress Note ---
Assessment and Plan 62 y.o. F s/p ex lap, repair of enterotomy, then s/p ex lap, transverse colon resection, colostomy creation, and s/p ex lap, abdominal wash out and abdominal wall closure after wound dehiscence 3 weeks s/p ex lap for gastric perforation and sbo. complicated patient with hx of several abdominal procedures this admission, starting with surgery for SBO and gastric perforation. Most recently, s/p exlap and repair of enterotomy and midline closure with biologic mesh due to dehiscence -G tube study to eval if leak: per g tube study- contrast remains in stomach. Methylene blue irrigated in G tube then clamped. no apparent blue noted in midline or MERVIN drains. No blue in the MERVIN drains in the am or at midline. G tube now to gravity No leak noted. May restart tube feeds at 10cc. tube feeds started overnight, no residuals noted. Tube feeds held as of this am due to vascath procedure and CT abd/pelvis planned for today. Based on Ct will make further recs regarding restarting the tube feeds. - due to increased drainage from midline and at JPs- will obtain ct abd/pelvis with IV contrast and PO- eval for possible abscess or collections due to increased MERVIN drainage and fevers. If collections present that are not being drained by Jps, will discuss with IR for drainage. leukocytosis- abx per ID: line holiday scheduled +cultures- yeast. micafungin Nurtrition: TPN for nutritional support. wound care: -wound vac not possible due to retention suture- will continue daily to BID dressing changes. Once retention sutures removed, possible wound vac. -santyl to border of wound at site of fat necrosis. -Monitor ostomy site - mucocutaneous seperation occuring medial portion of ostomy. Wound care aware and will monitor Renal : HD per renal DVT proph: scds GI: PPI. - Patient Problems (1) Peritonitis (acute) generalized Current Visit: Yes Status: Acute Subjective Narrative: Pt resting in bed. Awake, does not follow commands but responds to pain. Tmax 102.1, Tc 97.1. Levo: 2.5- Jps: Upper: 20cc cream/white liquid Mervin: lower: 150cc cream/coleman liquid Objective Vital Signs - 12hr 10/05/17 10/05/17 10/05/17 00:00 00:16 00:30 Temperature 99.9 F H Pulse Rate 109 H 112 H 109 H Pulse Rate [ Apical] Pulse Rate [ From Monitor] Respiratory 28 H 28 H 31 H Rate Blood Pressure 122/57 122/57 122/57 O2 Sat by Pulse 97 99 99 Oximetry O2 Sat by Pulse Oximetry [ Assessment] 10/05/17 10/05/17 10/05/17 00:46 01:00 01:16 Temperature Pulse Rate 112 H 110 H 109 H Pulse Rate [ Apical] Pulse Rate [ From Monitor] Respiratory 34 H 37 H 33 H Rate Blood Pressure 122/57 122/57 139/85 O2 Sat by Pulse 98 95 98 Oximetry O2 Sat by Pulse Oximetry [ Assessment] 10/05/17 10/05/17 10/05/17 01:20 01:25 01:30 Temperature Pulse Rate 104 H Pulse Rate [ Apical] Pulse Rate [ From Monitor] Respiratory 32 H 28 H Rate Blood Pressure 139/85 O2 Sat by Pulse 99 99 Oximetry O2 Sat by Pulse Oximetry [ Assessment] 10/05/17 10/05/17 10/05/17 01:46 01:55 02:00 Temperature Pulse Rate 103 H 104 H Pulse Rate [ Apical] Pulse Rate [ From Monitor] Respiratory 22 28 H 28 H Rate Blood Pressure 139/85 139/85 O2 Sat by Pulse 99 99 Oximetry O2 Sat by Pulse Oximetry [ Assessment] 10/05/17 10/05/17 10/05/17 02:15 02:31 02:45 Temperature Pulse Rate 101 H 106 H 97 H Pulse Rate [ Apical] Pulse Rate [ From Monitor] Respiratory 29 H 16 24 Rate Blood Pressure 125/60 125/60 O2 Sat by Pulse 100 100 100 Oximetry O2 Sat by Pulse Oximetry [ Assessment] 10/05/17 10/05/17 10/05/17 03:00 03:02 03:15 Temperature 98.9 F Pulse Rate 106 H 100 H Pulse Rate [ Apical] Pulse Rate [ From Monitor] Respiratory 31 H 24 Rate Blood Pressure 125/62 125/62 O2 Sat by Pulse 98 99 Oximetry O2 Sat by Pulse Oximetry [ Assessment] 10/05/17 10/05/17 10/05/17 03:31 03:45 04:00 Temperature Pulse Rate 102 H 99 H 107 H Pulse Rate [ Apical] Pulse Rate [ From Monitor] Respiratory 29 H 24 30 H Rate Blood Pressure 125/62 125/62 120/59 O2 Sat by Pulse 97 98 97 Oximetry O2 Sat by Pulse 98 Oximetry [ Assessment] 10/05/17 10/05/17 10/05/17 04:15 04:20 04:31 Temperature Pulse Rate 100 H 104 H 97 H Pulse Rate [ Apical] Pulse Rate [ From Monitor] Respiratory 27 H 27 H Rate Blood Pressure 120/59 120/59 120/59 O2 Sat by Pulse 98 98 99 Oximetry O2 Sat by Pulse Oximetry [ Assessment] 10/05/17 10/05/17 10/05/17 04:45 05:00 05:15 Temperature Pulse Rate 108 H 108 H 106 H Pulse Rate [ Apical] Pulse Rate [ From Monitor] Respiratory 20 28 H 24 Rate Blood Pressure 120/59 114/55 114/55 O2 Sat by Pulse 99 99 98 Oximetry O2 Sat by Pulse Oximetry [ Assessment] 10/05/17 10/05/17 10/05/17 05:28 05:31 05:45 Temperature Pulse Rate 104 H 104 H Pulse Rate [ Apical] Pulse Rate [ From Monitor] Respiratory 27 H 29 H 28 H Rate Blood Pressure 114/55 114/55 O2 Sat by Pulse 99 99 99 Oximetry O2 Sat by Pulse Oximetry [ Assessment] 10/05/17 10/05/17 10/05/17 06:00 06:15 06:31 Temperature Pulse Rate 107 H 104 H 104 H Pulse Rate [ Apical] Pulse Rate [ From Monitor] Respiratory 30 H 30 H 28 H Rate Blood Pressure 119/51 114/55 114/55 O2 Sat by Pulse 98 99 100 Oximetry O2 Sat by Pulse Oximetry [ Assessment] 10/05/17 10/05/17 10/05/17 06:45 07:00 07:15 Temperature Pulse Rate 107 H 108 H 106 H Pulse Rate [ Apical] Pulse Rate [ From Monitor] Respiratory 30 H 33 H 31 H Rate Blood Pressure 119/51 119/57 119/57 O2 Sat by Pulse 100 99 100 Oximetry O2 Sat by Pulse Oximetry [ Assessment] 10/05/17 10/05/17 10/05/17 07:31 07:45 07:56 Temperature Pulse Rate 105 H 108 H 107 H Pulse Rate [ Apical] Pulse Rate [ From Monitor] Respiratory 28 H 29 H Rate Blood Pressure 119/57 119/57 95/46 O2 Sat by Pulse 100 100 100 Oximetry O2 Sat by Pulse Oximetry [ Assessment] 10/05/17 10/05/17 10/05/17 08:00 08:01 08:15 Temperature 97.1 F L Pulse Rate 104 H 107 H Pulse Rate [ 104 H Apical] Pulse Rate [ 109 H From Monitor] Respiratory 25 H 29 H Rate Blood Pressure 103/43 103/43 O2 Sat by Pulse 98 100 Oximetry O2 Sat by Pulse 100 Oximetry [ Assessment] 10/05/17 10/05/17 10/05/17 08:31 08:45 09:00 Temperature Pulse Rate 104 H 108 H 107 H Pulse Rate [ Apical] Pulse Rate [ From Monitor] Respiratory 24 30 H 25 H Rate Blood Pressure 103/43 103/43 113/47 O2 Sat by Pulse 100 100 97 Oximetry O2 Sat by Pulse Oximetry [ Assessment] 10/05/17 10/05/17 10/05/17 09:15 09:31 09:45 Temperature Pulse Rate 107 H 109 H 107 H Pulse Rate [ Apical] Pulse Rate [ From Monitor] Respiratory 26 H 28 H 27 H Rate Blood Pressure 103/43 103/43 103/43 O2 Sat by Pulse 100 100 99 Oximetry O2 Sat by Pulse Oximetry [ Assessment] 10/05/17 10/05/17 10/05/17 10:00 10:15 10:31 Temperature Pulse Rate 109 H 111 H 108 H Pulse Rate [ Apical] Pulse Rate [ From Monitor] Respiratory 29 H 21 28 H Rate Blood Pressure 108/49 108/49 108/49 O2 Sat by Pulse 98 99 99 Oximetry O2 Sat by Pulse Oximetry [ Assessment] - General physical appearance chronically ill, obese - Respiratory normal expansion, normal respiratory effort - Abdomen soft, other (midline dressing last changed at 12am. Midline dressign removed. saturated with sersang discharge. Less liquid pooling at incision base compared to yesterday. repacked wound with calcium alginate and placed barrier protection at each retention suture site. colostomy. patent liquid brown stool in bag. minimal air. no leaking to wound. ) - Neurologic confused - Labs 10/05/17 04:00 10/05/17 04:00 Diabetes panel 10/05/17 Range/Units 04:00 Sodium 139 (137-145) mmol/L Potassium 3.8 (3.6-5.0) mmol/L Chloride 98.0 (98-107) mmol/L Carbon Dioxide 20 L (22-30) mmol/L BUN 113 H (7-17) mg/dL Creatinine 3.0 H (0.7-1.2) mg/dL Glucose 229 H (65-100) mg/dL Calcium 8.4 (8.4-10.2) mg/dL Calcium panel 10/05/17 Range/Units 04:00 Calcium 8.4 (8.4-10.2) mg/dL Phosphorus 3.10 (2.5-4.5) mg/dL Pituitary panel 10/05/17 Range/Units 04:00 Sodium 139 (137-145) mmol/L Potassium 3.8 (3.6-5.0) mmol/L Chloride 98.0 (98-107) mmol/L Carbon Dioxide 20 L (22-30) mmol/L BUN 113 H (7-17) mg/dL Creatinine 3.0 H (0.7-1.2) mg/dL Glucose 229 H (65-100) mg/dL Calcium 8.4 (8.4-10.2) mg/dL Adrenal panel 10/05/17 Range/Units 04:00 Sodium 139 (137-145) mmol/L Potassium 3.8 (3.6-5.0) mmol/L Chloride 98.0 (98-107) mmol/L Carbon Dioxide 20 L (22-30) mmol/L BUN 113 H (7-17) mg/dL Creatinine 3.0 H (0.7-1.2) mg/dL Glucose 229 H (65-100) mg/dL Calcium 8.4 (8.4-10.2) mg/dL
--- NOTE | 2017-10-05 12:12 | Operative Report ---
Operative Report Operative Report: EXAM: 1. Ultrasound-guided puncture of the right internal jugular vein 2. Placement of a right internal jugular vein nontunneled noncuffed hemodialysis catheter. DATE: 10/05/17 INDICATION: 62-year-old female with acute renal failure requiring hemodialysis access.. MEDICATIONS: Local anesthetic (1% lidocaine). 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 The patient's right internal jugular vein was assessed with ultrasound at bedside and determined to be patent prior to procedure. The patient was prepped and draped in a sterile fashion. The puncture site was anesthetized. Under sonographic guidance, the right internal jugular vein was punctured with a 18-gauge micropuncture needle and a 0.035 inch wire was advanced through the needle. Over the 0.035 inch wire, dilatation was performed. The catheter was advanced over the wire. Silk suture was used to secure the catheter. The catheter was charged with 1000 units per mL of heparin. Biopatch and tegaderm were applied. Chest x ray was ordered and the patient tolerated the procedure without immediate post procedual complication. FINDINGS: 1. Ultrasound documented patency of the right internal jugular vein. The vessel was accessed under direct ultrasound guidance. 2. On the post procedural chest x ray, the catheter tip is appropriately placed in the cavoatrial junction. Since her last CXR on 10/03/17, she has opacification of her left hemithorax. I contacted Dr. Dickerson, her sr account executive, to inform him of her CXR findings. IMPRESSION: 1. Successful ultrasound guided bedside placement of a right internal jugular vein nontunneled noncuffed dual lumen hemodialysis catheter. 2. Since her last CXR on 10/03/17, she has opacification of her left hemithorax. I contacted Dr. Dickerson, her sr account executive, to inform him of her CXR findings.
--- NOTE | 2017-10-05 13:26 | Progress Note ---
Assessment and Plan ESRD - HD today Vitals - F/u on midodrine Lytes - F/u labs Periph Edema - UF on HD as tolerated Subjective Date of service: 10/05/17 Principal diagnosis: respiratory failure, sepsis, shock rectal bleeding Objective - Vital Signs Vital signs: Vital Signs - 12hr 10/05/17 10/05/17 10/05/17 01:25 01:30 01:46 Temperature Pulse Rate 104 H 103 H Pulse Rate [ Apical] Pulse Rate [ From Monitor] Respiratory 32 H 28 H 22 Rate Blood Pressure 139/85 139/85 O2 Sat by Pulse 99 99 Oximetry O2 Sat by Pulse Oximetry [ Assessment] 10/05/17 10/05/17 10/05/17 01:55 02:00 02:15 Temperature Pulse Rate 104 H 101 H Pulse Rate [ Apical] Pulse Rate [ From Monitor] Respiratory 28 H 28 H 29 H Rate Blood Pressure 139/85 O2 Sat by Pulse 99 100 Oximetry O2 Sat by Pulse Oximetry [ Assessment] 10/05/17 10/05/17 10/05/17 02:31 02:45 03:00 Temperature Pulse Rate 106 H 97 H 106 H Pulse Rate [ Apical] Pulse Rate [ From Monitor] Respiratory 16 24 31 H Rate Blood Pressure 125/60 125/60 125/62 O2 Sat by Pulse 100 100 98 Oximetry O2 Sat by Pulse Oximetry [ Assessment] 10/05/17 10/05/17 10/05/17 03:02 03:15 03:31 Temperature 98.9 F Pulse Rate 100 H 102 H Pulse Rate [ Apical] Pulse Rate [ From Monitor] Respiratory 24 29 H Rate Blood Pressure 125/62 125/62 O2 Sat by Pulse 99 97 Oximetry O2 Sat by Pulse Oximetry [ Assessment] 10/05/17 10/05/17 10/05/17 03:45 04:00 04:15 Temperature Pulse Rate 99 H 107 H 100 H Pulse Rate [ Apical] Pulse Rate [ From Monitor] Respiratory 24 30 H 27 H Rate Blood Pressure 125/62 120/59 120/59 O2 Sat by Pulse 98 97 98 Oximetry O2 Sat by Pulse 98 Oximetry [ Assessment] 10/05/17 10/05/17 10/05/17 04:20 04:31 04:45 Temperature Pulse Rate 104 H 97 H 108 H Pulse Rate [ Apical] Pulse Rate [ From Monitor] Respiratory 27 H 20 Rate Blood Pressure 120/59 120/59 120/59 O2 Sat by Pulse 98 99 99 Oximetry O2 Sat by Pulse Oximetry [ Assessment] 10/05/17 10/05/17 10/05/17 05:00 05:15 05:28 Temperature Pulse Rate 108 H 106 H Pulse Rate [ Apical] Pulse Rate [ From Monitor] Respiratory 28 H 24 27 H Rate Blood Pressure 114/55 114/55 O2 Sat by Pulse 99 98 99 Oximetry O2 Sat by Pulse Oximetry [ Assessment] 10/05/17 10/05/17 10/05/17 05:31 05:45 06:00 Temperature Pulse Rate 104 H 104 H 107 H Pulse Rate [ Apical] Pulse Rate [ From Monitor] Respiratory 29 H 28 H 30 H Rate Blood Pressure 114/55 114/55 119/51 O2 Sat by Pulse 99 99 98 Oximetry O2 Sat by Pulse Oximetry [ Assessment] 10/05/17 10/05/17 10/05/17 06:15 06:31 06:45 Temperature Pulse Rate 104 H 104 H 107 H Pulse Rate [ Apical] Pulse Rate [ From Monitor] Respiratory 30 H 28 H 30 H Rate Blood Pressure 114/55 114/55 119/51 O2 Sat by Pulse 99 100 100 Oximetry O2 Sat by Pulse Oximetry [ Assessment] 10/05/17 10/05/17 10/05/17 07:00 07:15 07:31 Temperature Pulse Rate 108 H 106 H 105 H Pulse Rate [ Apical] Pulse Rate [ From Monitor] Respiratory 33 H 31 H 28 H Rate Blood Pressure 119/57 119/57 119/57 O2 Sat by Pulse 99 100 100 Oximetry O2 Sat by Pulse Oximetry [ Assessment] 10/05/17 10/05/17 10/05/17 07:45 07:56 08:00 Temperature 97.1 F L Pulse Rate 108 H 107 H Pulse Rate [ 104 H Apical] Pulse Rate [ 109 H From Monitor] Respiratory 29 H Rate Blood Pressure 119/57 95/46 O2 Sat by Pulse 100 100 Oximetry O2 Sat by Pulse 100 Oximetry [ Assessment] 10/05/17 10/05/17 10/05/17 08:01 08:15 08:31 Temperature Pulse Rate 104 H 107 H 104 H Pulse Rate [ Apical] Pulse Rate [ From Monitor] Respiratory 25 H 29 H 24 Rate Blood Pressure 103/43 103/43 103/43 O2 Sat by Pulse 98 100 100 Oximetry O2 Sat by Pulse Oximetry [ Assessment] 10/05/17 10/05/17 10/05/17 08:45 09:00 09:15 Temperature Pulse Rate 108 H 107 H 107 H Pulse Rate [ Apical] Pulse Rate [ From Monitor] Respiratory 30 H 25 H 26 H Rate Blood Pressure 103/43 113/47 103/43 O2 Sat by Pulse 100 97 100 Oximetry O2 Sat by Pulse Oximetry [ Assessment] 10/05/17 10/05/17 10/05/17 09:31 09:45 10:00 Temperature Pulse Rate 109 H 107 H 109 H Pulse Rate [ Apical] Pulse Rate [ From Monitor] Respiratory 28 H 27 H 29 H Rate Blood Pressure 103/43 103/43 108/49 O2 Sat by Pulse 100 99 98 Oximetry O2 Sat by Pulse Oximetry [ Assessment] 10/05/17 10/05/17 10/05/17 10:15 10:31 12:00 Temperature 101 F H Pulse Rate 111 H 108 H Pulse Rate [ Apical] Pulse Rate [ From Monitor] Respiratory 21 28 H Rate Blood Pressure 108/49 108/49 O2 Sat by Pulse 99 99 Oximetry O2 Sat by Pulse Oximetry [ Assessment] - General Appearance General appearance: other (Arousable) - Lab 10/05/17 04:00 10/05/17 04:00 Most recent lab results ABG pH 7.323 pH Units (7.350-7.450) L 09/09/17 Unknown ABG pCO2 41.1 mm Hg 09/09/17 Unknown ABG pO2 94.1 mm Hg (80.0-90.0) H 09/09/17 Unknown ABG HCO3 20.9 mmol/L (20.0-26.0) 09/09/17 Unknown ABG O2 Saturation 97.2 % (95.0-99.0) 09/09/17 Unknown Calcium 8.4 mg/dL (8.4-10.2) 10/05/17 04:00 Phosphorus 3.10 mg/dL (2.5-4.5) 10/05/17 04:00 Magnesium 1.70 mg/dL (1.7-2.3) 10/05/17 04:00
--- NOTE | 2017-10-05 13:29 | XRay Report ---
AP CHEST :08/08/17 20:53:00 CLINICAL: Vas-Cath placement COMPARISON:10/03/17 FINDINGS: Since the last exam, a right Vas-Cath has been inserted and the tip is in distal SVC at the cavoatrial junction.Interval development of complete left lung atelectasis with shift of the heart and mediastinum to the left. The right lung is normally expanded and clear. A tracheostomy tube is satisfactory and unchanged. A left central venous catheter tip remains in the distal left brachycephalic vein at the junction with the SVC. No pneumothorax. IMPRESSION: Satisfactory placement of a Vas-Cath. However, complete left lung atelectasis.
--- NOTE | 2017-10-05 14:58 | Cat Scan Report ---
FINAL REPORT PROCEDURE: CT ABDOMEN PELVIS W CON TECHNIQUE: Computerized axial tomography of the abdomen and pelvis was performed after the IV injection of iodinated nonionic contrast. HISTORY: Surgical wound COMPARISON: CT exam dated September 20, 2017 FINDINGS: There is complete consolidation of the visualized portions of the left lung. This is a changed appearance since prior study. This is probably atelectasis as there is mediastinal shift to the left. Tiny bilateral pleural effusions are seen. Heart is likely normal in size. There is a large midline anterior abdominal wall wound. Heterogeneous density within the wound is likely due to packing material. There is poorly organized fluid present extending superior to the wounds which may represent a developing abscess. This measures approximately 4.1 x 3.8 x 0.8 cm. Lateral to the mid section of the wound, there is a PEG tube that appears to be within the stomach. A percutaneous drain is seen adjacent to the PEG tube, which is coiled inferior and anterior to the stomach. Right-sided colostomy is seen. No intraperitoneal abscess is seen in the abdomen. However, in the pelvis there is an abscess suspected in the cul-de-sac, measuring 2.5 x 5.2 cm. It is new since prior study. Bladder appears normal. Bilateral ureteral stents are in place. No hydronephrosis is seen. Liver and spleen appear normal. Patient has had prior cholecystectomy. Pancreas displays no abnormalities. Adrenal glands and abdominal aorta are normal in size. There is mild diffuse anasarca. IMPRESSION: Large midline anterior abdominal wall wound is seen with packing material. Extending superior to the wound, there is a disorganized area of fluid measuring 4.1 x 3.8 x 0.8 cm. This could represent a developing abscess but a well-formed abscess is not seen at this time. There is likely new abscess in the cul-de-sac in the pelvis. It measures 5.2 x 2.5 cm. There is complete consolidation of the visualized portions of the left lung, a changed appearance since prior study. This is probably atelectasis as there is mediastinal shift to the left.
[2017-10-05] MEDS: HEPARIN IV PRN (17:02)
--- NOTE | 2017-10-05 17:55 | Progress Note ---
Assessment and Plan - Patient Problems (1) Leukocytosis Current Visit: Yes Status: Acute Qualifiers: Leukocytosis type: L Plan to address problem: See notes above. make sure that PD access is clean also. see notes. Probably infection from the infected PD catheter. improving. back up again. up/down continue to monitor. it continuos to rise. still high. improved. Back up. Now improving again. still in the same range as yesterday.. worse today. 37,000 59,000 61.9 63,000. 39,000 today. 28,000. 23,000 Down to 18,000 16,000. 18.9000 14,000 (2) Anemia Current Visit: Yes Status: Acute Qualifiers: Anemia type: A Iron deficiency anemia type: I Vitamin B12 deficiency anemia type: V Folate deficiency anemia type: F Bone marrow failure anemia type: B Hemolytic anemia type: H Other causes of anemia: O Chronic kidney disease stage: C Plan to address problem: see notes , monitor labs,. see notes above. continue to monitor labs with you. blood transfusion. S/P replacement transfusion. fair. s/p 1unit transfusion. see notes. Still at 7.4 6.9, scheduled for replacement. Fairly stable at this time. continue to monitor. If less, or equal to 7.0, will need replacement transfusion, with HD. Fair at this time. 7.7 today 7.0, needs blood with next HD. 6.3, and transfused. better post transfusion. stable. (3) Acute respiratory failure Current Visit: Yes Status: Acute Qualifiers: Respiratory failure complication: R Plan to address problem: follow pulm. Subjective Date of service: 10/05/17 Principal diagnosis: respiratory failure, sepsis, shock rectal bleeding Interval history: Patient seen today/examined, labs reviewed, case d/w she, and family.complaints of abdominal pain. Patient resting in bed in the ICU, post vascular procedure. labs reviewed, Reactive thrombocytosis, anemia of CD, leukocytosis from infection vs inflamatory process. Patient seen/examined, in bed in the ICU, on the vent post surgery.Labs reviewed , notes reviewed. will continue to monitor labs/patient with you. Replacement transfusion, if /when indicated. patient seen/examined, SBP75, on pressors., lethargic, on the vent, labs reviewed, wbc 39,000 Patient seen/examined, case reviewed, d/w her sister at the bed side. Patient seen/examined, labs reviewed, notes reviewed. severe septic shock from infected PD catheter The high wbc is all infection related. H?H low, and may get replacement transfusion with the next HD. Prognosis remain quite poor. Patient seen/examined, extubated, now on V Mask. labs reviewed. patient seen/examined, resting in bed, still some what lethargic . labs reviewed. Patient seen/examined, resting in bed., some difficulty with breathing./ lethargic. patient seen/examined, resting in bed, looked much better labs reviewed, and fair over all. Patient seen/examined, resting in bed, labs reviewed, case d/w her. Patient seen/examined, resting in bed on BIPAP., labs reviewed. patient seen/examined, resting in bed, on Bipap.labs reviewed, fairly stable. Patient seen today, resting in bed, labs reviewed, H/H low, and transfusion already ordered. Patient seen/examined, resting in bed, transferred back to the unit, due to resp failure. She is now on venting mask. had blood replacement done. Patient seen/examined in the ICU.labs reviewed. patient intubated this am. patient resting in bed.no new issues. Patient seen/examined in the ICU, on vent,Not readily responsive. patient seen, resting in bed, no new cbc ready.will order for today. Patient seen, resting in vent, labs reviewed.notes reviewed also. patient seen/examined, resting on vent, had HD yesterday, and today., labs reviewed. Patient seen, resting in bed, labs reviewed.fairly stable labs, except the wbc. Patient seen/examined, rtesting in bed on the vent.Labs reviewed, wbc still elevated, Hgb dropped slightly. Patient seen/examined, labs reviewed, hgb 7.3, if 7.0 or less, will replace .unless otherwise indicated. Patient seen/examined, alert but lethargic.sedation drip turned down.she is s/p 1unit PRBC replacement with HD today. Patient seen/examined, labs reviewed, hgb still not quite enough at 7.5, perhaps with the next HD,can use 1-2 units. Patient seen/examined, resting in bed, trached, labs re viewed. Patient seen/examined, resting in bed, responds to name calling, SBP99, labs reviewed, Hgb 6.9, PRBC replacement ordered by primary. Patient seen/examined, in bed/trach, NGT., alert/lethargic. Patient seen/examined, resting in bed, still lethargic, labs reviewed, and still fair.Will continue to follow you. Patient seen/examined, resting in bed, labs reviewed. HD in progress.She is now getting daily HD.Labs reviewed, and still fair. Patient seen/examined, resting in bed, less lethargic/less toxic looking. labs have improved. Patient seen/examined, labs reviewed, fair, case d/w her spouse at the bed side. Patient seen/examined, resting ok in bed, alert, NAD, HD in progress.Labs reviewed, and WBC 27,000, Hgb 7.8. Patient seen/examined, resting in bed in the ICU, NAD.labs reviewed, and fair. Patient seen/examined, resting in bed, labs reviewed, WBC back up,to37,000, and Hgb down to 7.3, transfusion will be needed ,if hgb less, or equal to 7.0 Patient seen/examined, resting in bed in the ICU, alert, lethargic, labs reviewed, and fair. She remains on 5mics of levophed., Temp 100. Patient seen/examined in the ICU, alert, Labs reviewed, WBC 59,000. Patient seen/examined, resting in bed, labs reviewed, WBC up to 61.9,000, Hgb 7.0, and may benefit from PRBC replacement of 2units with HD. Patient seen/examined, resting in bed, easily awoken.Hgb low at 6.3, replaced earlier with HD today.will need repeat labs in am. Patient seen/examined today, resting in bed in the ICU, labs reviewed, WBC down again to 39,000., H/H stable, post transfusion. Patient seen/examined, labs reviewed, case d/w her spouse at the bed side. WBC down to 28,000. patient seen/examined, resting in bed, more alert today, wbc better. Patient seen/examined, resting in bed, labs reviewed, case d/w her family at the bed side in the ICU. she is alert, WBC still down at 23,000 Patient seen, resting in bed, labs reviewed, and fair, including the WBC. Patient seen/examined, resting in bed in the icu, labs reviewed, and remains stable, including the WBC. Patient seen/examined ,resting in bed, labs reviewed, and stable, WBC 18,000. Patient seen/examined resting in bed, distressed, HD in progress, Labs reviewed , and fair. Objective - Constitutional Vitals: Vital Signs - 12hr 10/05/17 10/05/17 10/05/17 06:00 06:15 06:31 Temperature Pulse Rate 107 H 104 H 104 H Pulse Rate [ Apical] Pulse Rate [ From Monitor] Respiratory 30 H 30 H 28 H Rate Blood Pressure 119/51 114/55 114/55 O2 Sat by Pulse 98 99 100 Oximetry O2 Sat by Pulse Oximetry [ Anterior Bilateral Throughout] O2 Sat by Pulse Oximetry [ Assessment] 10/05/17 10/05/17 10/05/17 06:45 07:00 07:15 Temperature Pulse Rate 107 H 108 H 106 H Pulse Rate [ Apical] Pulse Rate [ From Monitor] Respiratory 30 H 33 H 31 H Rate Blood Pressure 119/51 119/57 119/57 O2 Sat by Pulse 100 99 100 Oximetry O2 Sat by Pulse Oximetry [ Anterior Bilateral Throughout] O2 Sat by Pulse Oximetry [ Assessment] 10/05/17 10/05/17 10/05/17 07:31 07:45 07:56 Temperature Pulse Rate 105 H 108 H 107 H Pulse Rate [ Apical] Pulse Rate [ From Monitor] Respiratory 28 H 29 H Rate Blood Pressure 119/57 119/57 95/46 O2 Sat by Pulse 100 100 100 Oximetry O2 Sat by Pulse Oximetry [ Anterior Bilateral Throughout] O2 Sat by Pulse Oximetry [ Assessment] 10/05/17 10/05/17 10/05/17 08:00 08:01 08:15 Temperature 97.1 F L Pulse Rate 104 H 107 H Pulse Rate [ 104 H Apical] Pulse Rate [ 109 H From Monitor] Respiratory 25 H 29 H Rate Blood Pressure 103/43 103/43 O2 Sat by Pulse 98 100 Oximetry O2 Sat by Pulse Oximetry [ Anterior Bilateral Throughout] O2 Sat by Pulse 100 Oximetry [ Assessment] 10/05/17 10/05/17 10/05/17 08:31 08:45 09:00 Temperature Pulse Rate 104 H 108 H 107 H Pulse Rate [ Apical] Pulse Rate [ From Monitor] Respiratory 24 30 H 25 H Rate Blood Pressure 103/43 103/43 113/47 O2 Sat by Pulse 100 100 97 Oximetry O2 Sat by Pulse Oximetry [ Anterior Bilateral Throughout] O2 Sat by Pulse Oximetry [ Assessment] 10/05/17 10/05/17 10/05/17 09:15 09:31 09:45 Temperature Pulse Rate 107 H 109 H 107 H Pulse Rate [ Apical] Pulse Rate [ From Monitor] Respiratory 26 H 28 H 27 H Rate Blood Pressure 103/43 103/43 103/43 O2 Sat by Pulse 100 100 99 Oximetry O2 Sat by Pulse Oximetry [ Anterior Bilateral Throughout] O2 Sat by Pulse Oximetry [ Assessment] 10/05/17 10/05/17 10/05/17 10:00 10:15 10:31 Temperature Pulse Rate 109 H 111 H 108 H Pulse Rate [ Apical] Pulse Rate [ From Monitor] Respiratory 29 H 21 28 H Rate Blood Pressure 108/49 108/49 108/49 O2 Sat by Pulse 98 99 99 Oximetry O2 Sat by Pulse Oximetry [ Anterior Bilateral Throughout] O2 Sat by Pulse Oximetry [ Assessment] 10/05/17 10/05/17 10/05/17 10:45 11:00 11:15 Temperature Pulse Rate 109 H 109 H 109 H Pulse Rate [ Apical] Pulse Rate [ From Monitor] Respiratory 17 29 H 28 H Rate Blood Pressure 108/49 112/53 112/53 O2 Sat by Pulse 100 99 Oximetry O2 Sat by Pulse Oximetry [ Anterior Bilateral Throughout] O2 Sat by Pulse Oximetry [ Assessment] 10/05/17 10/05/17 10/05/17 11:31 11:45 12:00 Temperature 101 F H Pulse Rate 106 H 114 H 112 H Pulse Rate [ Apical] Pulse Rate [ From Monitor] Respiratory 27 H 28 H 34 H Rate Blood Pressure 112/53 112/53 114/54 O2 Sat by Pulse 100 99 97 Oximetry O2 Sat by Pulse Oximetry [ Anterior Bilateral Throughout] O2 Sat by Pulse Oximetry [ Assessment] 10/05/17 10/05/17 10/05/17 12:15 12:31 13:00 Temperature 101.0 F H Pulse Rate 108 H 113 H 112 H Pulse Rate [ Apical] Pulse Rate [ From Monitor] Respiratory 33 H Rate Blood Pressure 112/53 112/53 88/49 O2 Sat by Pulse 100 99 Oximetry O2 Sat by Pulse 99 Oximetry [ Anterior Bilateral Throughout] O2 Sat by Pulse Oximetry [ Assessment] 10/05/17 10/05/17 10/05/17 13:13 13:15 13:30 Temperature Pulse Rate 117 H 112 H 114 H Pulse Rate [ Apical] Pulse Rate [ From Monitor] Respiratory Rate Blood Pressure 88/49 80/47 O2 Sat by Pulse 100 Oximetry O2 Sat by Pulse Oximetry [ Anterior Bilateral Throughout] O2 Sat by Pulse Oximetry [ Assessment] 10/05/17 10/05/17 10/05/17 13:45 14:00 14:01 Temperature Pulse Rate 111 H 114 H 108 H Pulse Rate [ Apical] Pulse Rate [ From Monitor] Respiratory 34 H 34 H Rate Blood Pressure 91/46 55/40 80/47 O2 Sat by Pulse 100 Oximetry O2 Sat by Pulse Oximetry [ Anterior Bilateral Throughout] O2 Sat by Pulse Oximetry [ Assessment] 10/05/17 10/05/17 10/05/17 14:05 14:15 14:29 Temperature Pulse Rate 118 H 116 H 126 H Pulse Rate [ Apical] Pulse Rate [ From Monitor] Respiratory 42 H Rate Blood Pressure 116/63 91/46 111/60 O2 Sat by Pulse 96 Oximetry O2 Sat by Pulse Oximetry [ Anterior Bilateral Throughout] O2 Sat by Pulse Oximetry [ Assessment] 10/05/17 10/05/17 10/05/17 14:31 14:43 14:45 Temperature Pulse Rate 118 H 127 H 116 H Pulse Rate [ Apical] Pulse Rate [ From Monitor] Respiratory 34 H 40 H Rate Blood Pressure 107/84 110/62 107/84 O2 Sat by Pulse 92 94 Oximetry O2 Sat by Pulse Oximetry [ Anterior Bilateral Throughout] O2 Sat by Pulse Oximetry [ Assessment] 10/05/17 10/05/17 10/05/17 15:01 15:02 15:16 Temperature Pulse Rate 122 H 120 H 121 H Pulse Rate [ Apical] Pulse Rate [ From Monitor] Respiratory 35 H Rate Blood Pressure 108/66 104/59 97/56 O2 Sat by Pulse 88 Oximetry O2 Sat by Pulse Oximetry [ Anterior Bilateral Throughout] O2 Sat by Pulse Oximetry [ Assessment] 10/05/17 10/05/17 10/05/17 15:30 15:44 15:59 Temperature Pulse Rate 124 H 125 H 128 H Pulse Rate [ Apical] Pulse Rate [ From Monitor] Respiratory Rate Blood Pressure 90/52 94/54 78/55 O2 Sat by Pulse Oximetry O2 Sat by Pulse Oximetry [ Anterior Bilateral Throughout] O2 Sat by Pulse Oximetry [ Assessment] 10/05/17 10/05/17 10/05/17 16:00 16:14 16:27 Temperature 98.3 F Pulse Rate 124 H 120 H 122 H Pulse Rate [ Apical] Pulse Rate [ From Monitor] Respiratory Rate Blood Pressure 78/41 104/59 107/56 O2 Sat by Pulse 91 Oximetry O2 Sat by Pulse Oximetry [ Anterior Bilateral Throughout] O2 Sat by Pulse Oximetry [ Assessment] 10/05/17 10/05/17 16:45 16:58 Temperature 101.0 F H Pulse Rate 124 H 124 H Pulse Rate [ Apical] Pulse Rate [ From Monitor] Respiratory 32 H Rate Blood Pressure 111/55 109/58 O2 Sat by Pulse Oximetry O2 Sat by Pulse 99 Oximetry [ Anterior Bilateral Throughout] O2 Sat by Pulse Oximetry [ Assessment] General appearance: Present: severe distress, well-nourished - EENT Eyes: PERRL, EOM intact ENT: hearing intact, clear oral mucosa Ears: bilateral: normal - Neck Neck: supple, normal ROM - Respiratory Respiratory: bilateral: diminished, rhonchi - Breasts Breasts: deferred - Cardiovascular Rhythm: regular Heart Sounds: Present: S1 & S2. Absent: gallop, rub Extremities: pulses intact, No edema, normal color, Full ROM - Gastrointestinal General gastrointestinal: Present: soft, non-tender, non-distended, normal bowel sounds Rectal Exam: deferred - Genitourinary Female genitourinary: deferred - Integumentary Integumentary: clear, warm, dry - Neurologic Neurologic: moves all extremities - Labs CBC & Chem 7: 10/05/17 04:00 10/05/17 04:00 Labs: Abnormal lab results 10/04/17 10/04/17 10/04/17 Range/Units 12:12 17:01 23:19 WBC (4.5-11.0) K/mm3 RBC (3.65-5.03) M/mm3 Hgb (10.1-14.3) gm/dl Hct (30.3-42.9) % RDW (13.2-15.2) % Seg Neuts % (Manual) (40.0-70.0) % Lymphocytes % (Manual) (13.4-35.0) % Monocytes % (Manual) (0.0-7.3) % Monocytes # (Manual) (0.0-0.8) K/mm3 Carbon Dioxide (22-30) mmol/L BUN (7-17) mg/dL Creatinine (0.7-1.2) mg/dL Glucose (65-100) mg/dL POC Glucose 216 H 244 H 241 H (70-105) 10/05/17 10/05/17 10/05/17 Range/Units 04:00 04:00 05:16 WBC 14.3 H (4.5-11.0) K/mm3 RBC 2.56 L (3.65-5.03) M/mm3 Hgb 7.7 L (10.1-14.3) gm/dl Hct 23.2 L (30.3-42.9) % RDW 17.5 H (13.2-15.2) % Seg Neuts % (Manual) 25.0 L (40.0-70.0) % Lymphocytes % (Manual) 12.0 L (13.4-35.0) % Monocytes % (Manual) 13.0 H (0.0-7.3) % Monocytes # (Manual) 1.9 H (0.0-0.8) K/mm3 Carbon Dioxide 20 L (22-30) mmol/L BUN 113 H (7-17) mg/dL Creatinine 3.0 H (0.7-1.2) mg/dL Glucose 229 H (65-100) mg/dL POC Glucose 247 H (70-105) 10/05/17 Range/Units 12:28 WBC (4.5-11.0) K/mm3 RBC (3.65-5.03) M/mm3 Hgb (10.1-14.3) gm/dl Hct (30.3-42.9) % RDW (13.2-15.2) % Seg Neuts % (Manual) (40.0-70.0) % Lymphocytes % (Manual) (13.4-35.0) % Monocytes % (Manual) (0.0-7.3) % Monocytes # (Manual) (0.0-0.8) K/mm3 Carbon Dioxide (22-30) mmol/L BUN (7-17) mg/dL Creatinine (0.7-1.2) mg/dL Glucose (65-100) mg/dL POC Glucose 237 H (70-105)
[2017-10-05] MEDS ORDERED: TPN ADULT 1,800 ML IV SCH (20:00)
[2017-10-06] MEDS: NOVOLOG SUB-Q SCH ×4 (00:15→18:32)
[2017-10-06] MEDS ORDERED: TYLENOL PR ONE (00:28)
[2017-10-06] MEDS: LEVOPHED 8 MG in NACL 0.9% 250ML 242 ML IV SCH ×2 (02:55→11:39)
[2017-10-06 05:05] LABS: Albumin 1.6 g/dL (3.9-5); Albumin/Globulin Ratio 0.3 %; Bilirubin,Total 0.5 mg/dL (0.1-1.2); Calcium 8.3 mg/dL (8.4-10.2); Chloride 95.4 mmol/L (98-107); Magnesium 1.7 mg/dL (1.7-2.3); Phosphorous 1.8 mg/dL (2.5-4.5); Potassium 3.4 mmol/L (3.6-5.0); Total Protein 6.3 g/dL (6.3-8.2)
[2017-10-06] MEDS: DILAUDID IV PRN ×4 (07:19→19:00)
--- NOTE | 2017-10-06 09:51 | Progress Note ---
Assessment and Plan ESRD - S/p HD yesterday with UF~2litres. Re-eval in am & decide on next HD Vitals - F/u on levophed & midodrine Lytes - Replenish as necessary on TPN Periph Edema - UF as tolerated on HD ?Sepsis - Abx per ID Subjective Date of service: 10/06/17 Principal diagnosis: respiratory failure, sepsis, shock rectal bleeding Interval history: S/p bedside wound debridement yesterday. Remains on pressor, on vent via trach Objective - Vital Signs Vital signs: Vital Signs - 12hr 10/05/17 10/05/17 10/05/17 21:52 22:01 22:15 Temperature Pulse Rate 119 H 114 H Pulse Rate [ Apical] Respiratory 27 H 29 H Rate Respiratory Rate [ Generalized] Blood Pressure 129/59 129/59 O2 Sat by Pulse 95 96 Oximetry O2 Sat by Pulse 100 Oximetry [ Assessment] 10/05/17 10/05/17 10/05/17 22:30 22:45 22:54 Temperature 102.4 F H Pulse Rate 123 H 116 H Pulse Rate [ Apical] Respiratory 32 H 30 H Rate Respiratory Rate [ Generalized] Blood Pressure 125/55 117/59 O2 Sat by Pulse 94 95 Oximetry O2 Sat by Pulse Oximetry [ Assessment] 10/05/17 10/05/17 10/05/17 23:00 23:01 23:15 Temperature Pulse Rate 116 H 125 H 116 H Pulse Rate [ Apical] Respiratory 31 H 30 H Rate Respiratory Rate [ Generalized] Blood Pressure 126/48 126/48 O2 Sat by Pulse 99 95 96 Oximetry O2 Sat by Pulse Oximetry [ Assessment] 10/05/17 10/05/17 10/05/17 23:18 23:30 23:45 Temperature 102.4 F H Pulse Rate 113 H 116 H Pulse Rate [ Apical] Respiratory 37 H 36 H Rate Respiratory Rate [ Generalized] Blood Pressure 112/48 125/56 O2 Sat by Pulse 97 95 Oximetry O2 Sat by Pulse Oximetry [ Assessment] 10/05/17 10/06/17 10/06/17 23:51 00:00 00:15 Temperature Pulse Rate 116 H 123 H 118 H Pulse Rate [ Apical] Respiratory 28 H 34 H 23 Rate Respiratory Rate [ Generalized] Blood Pressure 125/56 123/59 121/51 O2 Sat by Pulse 96 94 95 Oximetry O2 Sat by Pulse Oximetry [ Assessment] 10/06/17 10/06/17 10/06/17 00:30 00:45 00:54 Temperature Pulse Rate 118 H 119 H 115 H Pulse Rate [ Apical] Respiratory 33 H 30 H 29 H Rate Respiratory Rate [ Generalized] Blood Pressure 115/61 113/51 O2 Sat by Pulse 95 96 99 Oximetry O2 Sat by Pulse Oximetry [ Assessment] 10/06/17 10/06/17 10/06/17 01:01 01:07 01:15 Temperature Pulse Rate 125 H 132 H 118 H Pulse Rate [ Apical] Respiratory 35 H 23 Rate Respiratory Rate [ Generalized] Blood Pressure 113/51 121/61 O2 Sat by Pulse 96 100 96 Oximetry O2 Sat by Pulse Oximetry [ Assessment] 10/06/17 10/06/17 10/06/17 01:30 01:45 01:54 Temperature Pulse Rate 119 H 115 H Pulse Rate [ Apical] Respiratory 34 H 29 H 31 H Rate Respiratory Rate [ Generalized] Blood Pressure 126/52 119/53 O2 Sat by Pulse 97 96 Oximetry O2 Sat by Pulse Oximetry [ Assessment] 10/06/17 10/06/17 10/06/17 02:00 02:15 02:18 Temperature Pulse Rate 104 H 117 H Pulse Rate [ Apical] Respiratory 19 34 H 29 H Rate Respiratory Rate [ Generalized] Blood Pressure 141/69 119/60 O2 Sat by Pulse 89 92 99 Oximetry O2 Sat by Pulse Oximetry [ Assessment] 10/06/17 10/06/17 10/06/17 02:30 02:45 03:00 Temperature Pulse Rate 110 H 114 H 113 H Pulse Rate [ Apical] Respiratory 33 H 33 H 33 H Rate Respiratory Rate [ Generalized] Blood Pressure 109/60 121/55 129/59 O2 Sat by Pulse 93 93 94 Oximetry O2 Sat by Pulse Oximetry [ Assessment] 10/06/17 10/06/17 10/06/17 03:15 03:30 03:45 Temperature Pulse Rate 113 H 111 H 120 H Pulse Rate [ Apical] Respiratory 32 H 32 H 31 H Rate Respiratory Rate [ Generalized] Blood Pressure 126/61 130/55 121/57 O2 Sat by Pulse 95 95 95 Oximetry O2 Sat by Pulse Oximetry [ Assessment] 10/06/17 10/06/17 10/06/17 03:50 03:52 04:00 Temperature 99.3 F Pulse Rate 120 H 115 H Pulse Rate [ Apical] Respiratory 31 H 32 H Rate Respiratory 31 H Rate [ Generalized] Blood Pressure 113/62 O2 Sat by Pulse 100 96 Oximetry O2 Sat by Pulse Oximetry [ Assessment] 10/06/17 10/06/17 10/06/17 04:15 04:24 04:30 Temperature Pulse Rate 112 H 128 H 112 H Pulse Rate [ Apical] Respiratory 30 H 30 H Rate Respiratory Rate [ Generalized] Blood Pressure 119/62 118/57 126/62 O2 Sat by Pulse 95 100 95 Oximetry O2 Sat by Pulse Oximetry [ Assessment] 10/06/17 10/06/17 10/06/17 04:45 05:00 05:15 Temperature Pulse Rate 129 H 115 H 114 H Pulse Rate [ Apical] Respiratory 32 H 31 H 24 Rate Respiratory Rate [ Generalized] Blood Pressure 127/62 127/61 109/48 O2 Sat by Pulse 96 97 97 Oximetry O2 Sat by Pulse Oximetry [ Assessment] 10/06/17 10/06/17 10/06/17 05:20 05:30 05:45 Temperature Pulse Rate 114 H 118 H Pulse Rate [ Apical] Respiratory 31 H 29 H 29 H Rate Respiratory Rate [ Generalized] Blood Pressure 115/61 130/56 O2 Sat by Pulse 100 97 97 Oximetry O2 Sat by Pulse Oximetry [ Assessment] 10/06/17 10/06/17 10/06/17 06:00 06:15 06:30 Temperature Pulse Rate 115 H 114 H 112 H Pulse Rate [ Apical] Respiratory 28 H 30 H 29 H Rate Respiratory Rate [ Generalized] Blood Pressure 137/63 127/61 126/61 O2 Sat by Pulse 96 97 97 Oximetry O2 Sat by Pulse Oximetry [ Assessment] 10/06/17 10/06/17 10/06/17 06:45 07:00 07:15 Temperature Pulse Rate 147 H 116 H 144 H Pulse Rate [ Apical] Respiratory 28 H 28 H 32 H Rate Respiratory Rate [ Generalized] Blood Pressure 127/58 125/59 120/57 O2 Sat by Pulse 97 97 97 Oximetry O2 Sat by Pulse Oximetry [ Assessment] 10/06/17 10/06/17 10/06/17 07:30 07:45 08:00 Temperature 97.1 F L Pulse Rate 117 H 119 H 116 H Pulse Rate [ 118 H Apical] Respiratory 29 H 28 H 28 H Rate Respiratory Rate [ Generalized] Blood Pressure 125/58 114/54 130/56 O2 Sat by Pulse 98 98 98 Oximetry O2 Sat by Pulse Oximetry [ Assessment] 10/06/17 10/06/17 10/06/17 08:15 08:30 08:45 Temperature Pulse Rate 117 H 115 H 123 H Pulse Rate [ Apical] Respiratory 28 H 27 H 29 H Rate Respiratory Rate [ Generalized] Blood Pressure 105/47 107/50 95/48 O2 Sat by Pulse 97 97 97 Oximetry O2 Sat by Pulse Oximetry [ Assessment] 10/06/17 10/06/17 10/06/17 08:52 09:00 09:12 Temperature Pulse Rate 118 H 113 H 12 L Pulse Rate [ Apical] Respiratory 28 H 51 H Rate Respiratory Rate [ Generalized] Blood Pressure 97/48 102/52 106/52 O2 Sat by Pulse 99 97 98 Oximetry O2 Sat by Pulse 98 Oximetry [ Assessment] 10/06/17 09:16 Temperature Pulse Rate 129 H Pulse Rate [ Apical] Respiratory Rate Respiratory Rate [ Generalized] Blood Pressure 98/48 O2 Sat by Pulse 98 Oximetry O2 Sat by Pulse Oximetry [ Assessment] - General Appearance General appearance: chronically ill Respiratory: Present: Other (Good air entry per trach) Cardiology: regular, S1S2 Gastrointestinal: other (Dressin with drains in place) - Lab 10/05/17 04:00 10/06/17 04:07 Most recent lab results ABG pH 7.323 pH Units (7.350-7.450) L 09/09/17 Unknown ABG pCO2 41.1 mm Hg 09/09/17 Unknown ABG pO2 94.1 mm Hg (80.0-90.0) H 09/09/17 Unknown ABG HCO3 20.9 mmol/L (20.0-26.0) 09/09/17 Unknown ABG O2 Saturation 97.2 % (95.0-99.0) 09/09/17 Unknown Calcium 8.3 mg/dL (8.4-10.2) L 10/06/17 04:07 Phosphorus 1.80 mg/dL (2.5-4.5) L D 10/06/17 04:07 Magnesium 1.70 mg/dL (1.7-2.3) 10/06/17 04:07
--- NOTE | 2017-10-06 09:58 | Progress Note ---
Assessment and Plan 62 y.o. F s/p ex lap, repair of enterotomy, then s/p ex lap, transverse colon resection, colostomy creation, and s/p ex lap, abdominal wash out and abdominal wall closure after wound dehiscence 3 weeks s/p ex lap for gastric perforation and sbo. complicated patient with hx of several abdominal procedures this admission, starting with surgery for SBO and gastric perforation. Most recently, s/p exlap and repair of enterotomy and midline closure with biologic mesh due to dehiscence -G tube study to eval if leak: per g tube study- contrast remains in stomach. Methylene blue irrigated in G tube then clamped. no apparent blue noted in midline or MERVIN drains. No blue in the MERVIN drains in the am or at midline. G tube now to gravity No leak noted. May restart tube feeds at 10cc. tube feeds started overnight, no residuals noted. - due to increased drainage from midline and at JPs- will obtain ct abd/pelvis with IV contrast and PO-= upper and lower abdomen fluid collections appearing to be abscess collections. IR will drain tomorrow. CT drainage will need to be coordinated with HD. Concern for increased drainage from midline incision- with color green/coleman. Dx: draining abscess to midline vs. fistula vs bowel perforation. IR planned for tomorrow. Will monitor output from midline. I discussed with family - daughter and that if her fever or drainage does not decrease after abscess drainage, the concern is for possible a hole in the bowel vs fistula. If not fistula and if there is a hole in the bowel this would require another operation. The and daughter both agree they do not want to her have another major operation. For now, we will continue with the planned IR procedure and monitor from there. If she does not improve, we need discuss goals of care with the family. leukocytosis- abx per ID: Will obtain cultures from fluid drained +cultures- yeast. micafungin Nurtrition: TPN for nutritional support. Hold tube feeds for now. wound care: -wound vac not possible due to retention suture- will continue daily to BID dressing changes. Once retention sutures removed, possible wound vac. -santyl to border of wound at site of fat necrosis. -Monitor ostomy site - mucocutaneous seperation occuring medial portion of ostomy. Wound care aware and will monitor Renal : HD per renal : goal for HD to be after IR drainage. DVT proph: scds GI: PPI. - Patient Problems (1) Peritonitis (acute) generalized Current Visit: Yes Status: Acute Subjective Narrative: CT abd/pelvis completed overnight, echo being done this am. Vascath placed yesterday for HD. Pt is more responsive to pain. Family at bedside. tmax 102.7 G tube clamped Mervin upper: 140cc/coleman white fluid MERVIN lower : 345cc /tanwhite Objective Vital Signs - 12hr 10/05/17 10/05/17 10/05/17 22:01 22:15 22:30 Temperature Pulse Rate 119 H 114 H 123 H Pulse Rate [ Apical] Respiratory 27 H 29 H 32 H Rate Respiratory Rate [ Generalized] Blood Pressure 129/59 129/59 125/55 O2 Sat by Pulse 95 96 94 Oximetry O2 Sat by Pulse Oximetry [ Assessment] 10/05/17 10/05/17 10/05/17 22:45 22:54 23:00 Temperature 102.4 F H Pulse Rate 116 H 116 H Pulse Rate [ Apical] Respiratory 30 H Rate Respiratory Rate [ Generalized] Blood Pressure 117/59 O2 Sat by Pulse 95 99 Oximetry O2 Sat by Pulse Oximetry [ Assessment] 10/05/17 10/05/17 10/05/17 23:01 23:15 23:18 Temperature 102.4 F H Pulse Rate 125 H 116 H Pulse Rate [ Apical] Respiratory 31 H 30 H Rate Respiratory Rate [ Generalized] Blood Pressure 126/48 126/48 O2 Sat by Pulse 95 96 Oximetry O2 Sat by Pulse Oximetry [ Assessment] 10/05/17 10/05/17 10/05/17 23:30 23:45 23:51 Temperature Pulse Rate 113 H 116 H 116 H Pulse Rate [ Apical] Respiratory 37 H 36 H 28 H Rate Respiratory Rate [ Generalized] Blood Pressure 112/48 125/56 125/56 O2 Sat by Pulse 97 95 96 Oximetry O2 Sat by Pulse Oximetry [ Assessment] 10/06/17 10/06/17 10/06/17 00:00 00:15 00:30 Temperature Pulse Rate 123 H 118 H 118 H Pulse Rate [ Apical] Respiratory 34 H 23 33 H Rate Respiratory Rate [ Generalized] Blood Pressure 123/59 121/51 115/61 O2 Sat by Pulse 94 95 95 Oximetry O2 Sat by Pulse Oximetry [ Assessment] 10/06/17 10/06/1717 00:45 00:54 01:01 Temperature Pulse Rate 119 H 115 H 125 H Pulse Rate [ Apical] Respiratory 30 H 29 H 35 H Rate Respiratory Rate [ Generalized] Blood Pressure 113/51 113/51 O2 Sat by Pulse 96 99 96 Oximetry O2 Sat by Pulse Oximetry [ Assessment] 10/06/17 10/06/17 10/06/17 01:07 01:15 01:30 Temperature Pulse Rate 132 H 118 H 119 H Pulse Rate [ Apical] Respiratory 23 34 H Rate Respiratory Rate [ Generalized] Blood Pressure 121/61 126/52 O2 Sat by Pulse 100 96 97 Oximetry O2 Sat by Pulse Oximetry [ Assessment] 10/06/17 10/06/17 10/06/17 01:45 01:54 02:00 Temperature Pulse Rate 115 H 104 H Pulse Rate [ Apical] Respiratory 29 H 31 H 19 Rate Respiratory Rate [ Generalized] Blood Pressure 119/53 141/69 O2 Sat by Pulse 96 89 Oximetry O2 Sat by Pulse Oximetry [ Assessment] 10/06/17 10/06/17 10/06/17 02:15 02:18 02:30 Temperature Pulse Rate 117 H 110 H Pulse Rate [ Apical] Respiratory 34 H 29 H 33 H Rate Respiratory Rate [ Generalized] Blood Pressure 119/60 109/60 O2 Sat by Pulse 92 99 93 Oximetry O2 Sat by Pulse Oximetry [ Assessment] 10/06/17 10/06/17 10/06/17 02:45 03:00 03:15 Temperature Pulse Rate 114 H 113 H 113 H Pulse Rate [ Apical] Respiratory 33 H 33 H 32 H Rate Respiratory Rate [ Generalized] Blood Pressure 121/55 129/59 126/61 O2 Sat by Pulse 93 94 95 Oximetry O2 Sat by Pulse Oximetry [ Assessment] 10/06/17 10/06/17 10/06/17 03:30 03:45 03:50 Temperature Pulse Rate 111 H 120 H 120 H Pulse Rate [ Apical] Respiratory 32 H 31 H 31 H Rate Respiratory 31 H Rate [ Generalized] Blood Pressure 130/55 121/57 O2 Sat by Pulse 95 95 100 Oximetry O2 Sat by Pulse Oximetry [ Assessment] 10/06/17 10/06/17 10/06/17 03:52 04:00 04:15 Temperature 99.3 F Pulse Rate 115 H 112 H Pulse Rate [ Apical] Respiratory 32 H 30 H Rate Respiratory Rate [ Generalized] Blood Pressure 113/62 119/62 O2 Sat by Pulse 96 95 Oximetry O2 Sat by Pulse Oximetry [ Assessment] 10/06/17 10/06/17 10/06/17 04:24 04:30 04:45 Temperature Pulse Rate 128 H 112 H 129 H Pulse Rate [ Apical] Respiratory 30 H 32 H Rate Respiratory Rate [ Generalized] Blood Pressure 118/57 126/62 127/62 O2 Sat by Pulse 100 95 96 Oximetry O2 Sat by Pulse Oximetry [ Assessment] 10/06/17 10/06/17 10/06/17 05:00 05:15 05:20 Temperature Pulse Rate 115 H 114 H Pulse Rate [ Apical] Respiratory 31 H 24 31 H Rate Respiratory Rate [ Generalized] Blood Pressure 127/61 109/48 O2 Sat by Pulse 97 97 100 Oximetry O2 Sat by Pulse Oximetry [ Assessment] 10/06/17 10/06/17 10/06/17 05:30 05:45 06:00 Temperature Pulse Rate 114 H 118 H 115 H Pulse Rate [ Apical] Respiratory 29 H 29 H 28 H Rate Respiratory Rate [ Generalized] Blood Pressure 115/61 130/56 137/63 O2 Sat by Pulse 97 97 96 Oximetry O2 Sat by Pulse Oximetry [ Assessment] 10/06/17 10/06/17 10/06/17 06:15 06:30 06:45 Temperature Pulse Rate 114 H 112 H 147 H Pulse Rate [ Apical] Respiratory 30 H 29 H 28 H Rate Respiratory Rate [ Generalized] Blood Pressure 127/61 126/61 127/58 O2 Sat by Pulse 97 97 97 Oximetry O2 Sat by Pulse Oximetry [ Assessment] 10/06/17 10/06/17 10/06/17 07:00 07:15 07:30 Temperature Pulse Rate 116 H 144 H 117 H Pulse Rate [ Apical] Respiratory 28 H 32 H 29 H Rate Respiratory Rate [ Generalized] Blood Pressure 125/59 120/57 125/58 O2 Sat by Pulse 97 97 98 Oximetry O2 Sat by Pulse Oximetry [ Assessment] 10/06/17 10/06/17 10/06/17 07:45 08:00 08:15 Temperature 97.1 F L Pulse Rate 119 H 116 H 117 H Pulse Rate [ 118 H Apical] Respiratory 28 H 28 H 28 H Rate Respiratory Rate [ Generalized] Blood Pressure 114/54 130/56 105/47 O2 Sat by Pulse 98 98 97 Oximetry O2 Sat by Pulse Oximetry [ Assessment] 10/06/17 10/06/17 10/06/17 08:30 08:45 08:52 Temperature Pulse Rate 115 H 123 H 118 H Pulse Rate [ Apical] Respiratory 27 H 29 H Rate Respiratory Rate [ Generalized] Blood Pressure 107/50 95/48 97/48 O2 Sat by Pulse 97 97 99 Oximetry O2 Sat by Pulse Oximetry [ Assessment] 10/06/17 10/06/17 10/06/17 09:00 09:12 09:16 Temperature Pulse Rate 113 H 12 L 129 H Pulse Rate [ Apical] Respiratory 28 H 51 H Rate Respiratory Rate [ Generalized] Blood Pressure 102/52 106/52 98/48 O2 Sat by Pulse 97 98 98 Oximetry O2 Sat by Pulse 98 Oximetry [ Assessment] - General physical appearance chronically ill, obese - Neck other (trach midline, no bleeding. ) - Respiratory normal expansion, normal respiratory effort, other (vent) - Abdomen soft, other (packing removed from midline. increased drainage from midline- yellow/green/coleman fluid. last dressing changed last night. wound irrigated with ns. and suctioned. debri and fibrinous tissue at base. wound base intact. repacked with alginate rope and covered with 4x4s, dated. no leaking from colostomy: stoma in patent, minimal air and liquid coleman/brown stool in bag. ) - Psychiatric other (A+Ox O) - Labs 10/05/17 04:00 10/06/17 04:07 Diabetes panel 10/06/17 Range/Units 04:07 Sodium 141 (137-145) mmol/L Potassium 3.4 L (3.6-5.0) mmol/L Chloride 95.4 L (98-107) mmol/L Carbon Dioxide 21 L (22-30) mmol/L BUN 63 H (7-17) mg/dL Creatinine 1.9 H (0.7-1.2) mg/dL Glucose 45 L (65-100) mg/dL Calcium 8.3 L (8.4-10.2) mg/dL AST 33 (5-40) units/L ALT 7 (7-56) units/L Alkaline Phosphatase 353 H (35-129) units/L Total Protein 6.3 (6.3-8.2) g/dL Albumin 1.6 L (3.9-5) g/dL Calcium panel 10/06/17 Range/Units 04:07 Calcium 8.3 L (8.4-10.2) mg/dL Phosphorus 1.80 L D (2.5-4.5) mg/dL Albumin 1.6 L (3.9-5) g/dL Pituitary panel 10/06/17 Range/Units 04:07 Sodium 141 (137-145) mmol/L Potassium 3.4 L (3.6-5.0) mmol/L Chloride 95.4 L (98-107) mmol/L Carbon Dioxide 21 L (22-30) mmol/L BUN 63 H (7-17) mg/dL Creatinine 1.9 H (0.7-1.2) mg/dL Glucose 45 L (65-100) mg/dL Calcium 8.3 L (8.4-10.2) mg/dL Adrenal panel 10/06/17 Range/Units 04:07 Sodium 141 (137-145) mmol/L Potassium 3.4 L (3.6-5.0) mmol/L Chloride 95.4 L (98-107) mmol/L Carbon Dioxide 21 L (22-30) mmol/L BUN 63 H (7-17) mg/dL Creatinine 1.9 H (0.7-1.2) mg/dL Glucose 45 L (65-100) mg/dL Calcium 8.3 L (8.4-10.2) mg/dL Total Bilirubin 0.50 (0.1-1.2) mg/dL AST 33 (5-40) units/L ALT 7 (7-56) units/L Alkaline Phosphatase 353 H (35-129) units/L Total Protein 6.3 (6.3-8.2) g/dL Albumin 1.6 L (3.9-5) g/dL - Imaging CT scan - abdomen: report reviewed, image reviewed
[2017-10-06] MEDS ORDERED: DILAUDID IV NR (10:05)
[2017-10-06] MEDS: ATIVAN IV PRN ×3 (10:16→20:07)
[2017-10-06] MEDS: LEVEMIR SUB-Q SCH (10:38)
[2017-10-06] MEDS: KCL 10MEQ/100ML 10 MEQ/100 ML BAG IV SCH ×2 (10:38→12:22)
[2017-10-06] MEDS: PROAMATINE FEEDTUBE SCH ×4 (10:41→20:09)
[2017-10-06] MEDS: MYCAMINE 100 MG in NACL 0.9% 100 ML IV SCH (11:23)
[2017-10-06] MEDS: PROTONIX FEEDTUBE SCH (11:27)
[2017-10-06] MEDS ORDERED: KPHOS 40 MMOL in NACL 0.9% 500 ML 500 ML IV ONE (12:00)
--- NOTE | 2017-10-06 12:47 | Progress Note ---
Assessment and Plan 62 y/o female originally admitted with hypotension, now back to ICU secondary to worsening hypotension, concern for sepsis, with acute respiratory failure post-op from ex-lap for abdominal distention and possible ileus, now back from OR after worsening respiratory failure, requiring re-intubation and wash out of abdomen 1. Wean pressors for MAPs >60 2. HD per renal. Has new vascath 3. Most likely large mucous plug on left. Will ask RT to lavage and suction and repeat CXR in am. If no improvement, can perform bedside bronch to clean left side out. 4. Steroids have been discontinued, please attempt to not restart these as surgery feels it is impeding the healing of the abdominal wound 5. Started tube feeds 09/30 at 10, but already having residuals, will continue to monitor. 6. Once medical issues have concrete plan, should be ready for transfer to [facility] 7. Ultimately, overall prognosis here is extremely poor. I suggest that a family meeting be held to discuss realistic goals and what the future plan of care will be. With her still requiring pressors and now fungemic still needing TPN for nutrition, the likely canas of sepsis with shock developing is high and survival in this patient would be very very low. Would be better if all disciplines can attend to help family understand the severity of this situation CCT 31 Subjective Date of service: 10/06/17 Principal diagnosis: respiratory failure, sepsis, shock rectal bleeding Interval history: No acute events. Had right IJ HD catheter placed. CXR shows white out of left lung. Likely from large mucous plug. Failed PSV trial this am, most likely because of this. Objective Vital Signs - 12hr 10/06/17 10/06/17 10/06/17 00:45 00:54 01:01 Temperature Pulse Rate 119 H 115 H 125 H Pulse Rate [ Apical] Respiratory 30 H 29 H 35 H Rate Respiratory Rate [ Generalized] Blood Pressure 113/51 113/51 O2 Sat by Pulse 96 99 96 Oximetry O2 Sat by Pulse Oximetry [ Assessment] 10/06/17 10/06/17 10/06/17 01:07 01:15 01:30 Temperature Pulse Rate 132 H 118 H 119 H Pulse Rate [ Apical] Respiratory 23 34 H Rate Respiratory Rate [ Generalized] Blood Pressure 121/61 126/52 O2 Sat by Pulse 100 96 97 Oximetry O2 Sat by Pulse Oximetry [ Assessment] 11/11/1010/06/17 10/06/17 01:45 01:54 02:00 Temperature Pulse Rate 115 H 104 H Pulse Rate [ Apical] Respiratory 29 H 31 H 19 Rate Respiratory Rate [ Generalized] Blood Pressure 119/53 141/69 O2 Sat by Pulse 96 89 Oximetry O2 Sat by Pulse Oximetry [ Assessment] 10/06/17 10/06/17 10/06/17 02:15 02:18 02:30 Temperature Pulse Rate 117 H 110 H Pulse Rate [ Apical] Respiratory 34 H 29 H 33 H Rate Respiratory Rate [ Generalized] Blood Pressure 119/60 109/60 O2 Sat by Pulse 92 99 93 Oximetry O2 Sat by Pulse Oximetry [ Assessment] 10/06/17 10/06/17 10/06/17 02:45 03:00 03:15 Temperature Pulse Rate 114 H 113 H 113 H Pulse Rate [ Apical] Respiratory 33 H 33 H 32 H Rate Respiratory Rate [ Generalized] Blood Pressure 121/55 129/59 126/61 O2 Sat by Pulse 93 94 95 Oximetry O2 Sat by Pulse Oximetry [ Assessment] 10/06/17 10/06/17 10/06/17 03:30 03:45 03:50 Temperature Pulse Rate 111 H 120 H 120 H Pulse Rate [ Apical] Respiratory 32 H 31 H 31 H Rate Respiratory 31 H Rate [ Generalized] Blood Pressure 130/55 121/57 O2 Sat by Pulse 95 95 100 Oximetry O2 Sat by Pulse Oximetry [ Assessment] 10/06/17 10/06/17 10/06/17 03:52 04:00 04:15 Temperature 99.3 F Pulse Rate 115 H 112 H Pulse Rate [ Apical] Respiratory 32 H 30 H Rate Respiratory Rate [ Generalized] Blood Pressure 113/62 119/62 O2 Sat by Pulse 96 95 Oximetry O2 Sat by Pulse Oximetry [ Assessment] 10/06/17 10/06/17 10/06/17 04:24 04:30 04:45 Temperature Pulse Rate 128 H 112 H 129 H Pulse Rate [ Apical] Respiratory 30 H 32 H Rate Respiratory Rate [ Generalized] Blood Pressure 118/57 126/62 127/62 O2 Sat by Pulse 100 95 96 Oximetry O2 Sat by Pulse Oximetry [ Assessment] 10/06/17 10/06/17 10/06/17 05:00 05:15 05:20 Temperature Pulse Rate 115 H 114 H Pulse Rate [ Apical] Respiratory 31 H 24 31 H Rate Respiratory Rate [ Generalized] Blood Pressure 127/61 109/48 O2 Sat by Pulse 97 97 100 Oximetry O2 Sat by Pulse Oximetry [ Assessment] 10/06/17 10/06/17 10/06/17 05:30 05:45 06:00 Temperature Pulse Rate 114 H 118 H 115 H Pulse Rate [ Apical] Respiratory 29 H 29 H 28 H Rate Respiratory Rate [ Generalized] Blood Pressure 115/61 130/56 137/63 O2 Sat by Pulse 97 97 96 Oximetry O2 Sat by Pulse Oximetry [ Assessment] 10/06/17 10/06/17 10/06/17 06:15 06:30 06:45 Temperature Pulse Rate 114 H 112 H 147 H Pulse Rate [ Apical] Respiratory 30 H 29 H 28 H Rate Respiratory Rate [ Generalized] Blood Pressure 127/61 126/61 127/58 O2 Sat by Pulse 97 97 97 Oximetry O2 Sat by Pulse Oximetry [ Assessment] 10/06/17 10/06/17 10/06/17 07:00 07:15 07:30 Temperature Pulse Rate 116 H 144 H 117 H Pulse Rate [ Apical] Respiratory 28 H 32 H 29 H Rate Respiratory Rate [ Generalized] Blood Pressure 125/59 120/57 125/58 O2 Sat by Pulse 97 97 98 Oximetry O2 Sat by Pulse Oximetry [ Assessment] 10/06/17 10/06/17 10/06/17 07:45 08:00 08:15 Temperature 97.1 F L Pulse Rate 119 H 116 H 117 H Pulse Rate [ 118 H Apical] Respiratory 28 H 28 H 28 H Rate Respiratory Rate [ Generalized] Blood Pressure 114/54 130/56 105/47 O2 Sat by Pulse 98 98 97 Oximetry O2 Sat by Pulse Oximetry [ Assessment] 10/06/17 10/06/17 10/06/17 08:30 08:45 08:52 Temperature Pulse Rate 115 H 123 H 118 H Pulse Rate [ Apical] Respiratory 27 H 29 H Rate Respiratory Rate [ Generalized] Blood Pressure 107/50 95/48 97/48 O2 Sat by Pulse 97 97 99 Oximetry O2 Sat by Pulse Oximetry [ Assessment] 10/06/17 10/06/17 10/06/17 09:00 09:12 09:15 Temperature Pulse Rate 113 H 12 L 114 H Pulse Rate [ Apical] Respiratory 28 H 51 H 27 H Rate Respiratory Rate [ Generalized] Blood Pressure 102/52 106/52 96/51 O2 Sat by Pulse 97 98 96 Oximetry O2 Sat by Pulse 98 Oximetry [ Assessment] 10/06/17 10/06/17 10/06/17 09:16 09:31 09:45 Temperature Pulse Rate 129 H 119 H 118 H Pulse Rate [ Apical] Respiratory 31 H 31 H Rate Respiratory Rate [ Generalized] Blood Pressure 98/48 122/61 109/45 O2 Sat by Pulse 98 96 98 Oximetry O2 Sat by Pulse Oximetry [ Assessment] 10/06/17 10/06/17 10/06/17 10:00 10:15 10:30 Temperature Pulse Rate 114 H 118 H 121 H Pulse Rate [ Apical] Respiratory 28 H 26 H 29 H Rate Respiratory Rate [ Generalized] Blood Pressure 106/47 120/54 120/54 O2 Sat by Pulse 98 98 99 Oximetry O2 Sat by Pulse Oximetry [ Assessment] 10/06/17 10/06/17 10/06/17 10:45 11:00 11:15 Temperature Pulse Rate 119 H 115 H 116 H Pulse Rate [ Apical] Respiratory 29 H 26 H 31 H Rate Respiratory Rate [ Generalized] Blood Pressure 96/51 94/45 119/53 O2 Sat by Pulse 98 98 97 Oximetry O2 Sat by Pulse Oximetry [ Assessment] 10/06/17 10/06/17 10/06/17 11:30 11:31 11:45 Temperature Pulse Rate 117 H 117 H 116 H Pulse Rate [ Apical] Respiratory 25 H 30 H Rate Respiratory Rate [ Generalized] Blood Pressure 113/48 90/41 115/51 O2 Sat by Pulse 98 99 98 Oximetry O2 Sat by Pulse Oximetry [ Assessment] 10/06/17 10/06/17 12:00 12:15 Temperature 100.8 F H Pulse Rate 114 H 117 H Pulse Rate [ Apical] Respiratory 30 H 31 H Rate Respiratory Rate [ Generalized] Blood Pressure 113/56 124/61 O2 Sat by Pulse 97 98 Oximetry O2 Sat by Pulse Oximetry [ Assessment] Constitutional: no acute distress, lethargic Eyes: non-icteric ENT: oropharynx dry Neck: supple, other (trach in position, no bleeding) Effort: normal Ascultation: Left: diminished breath sounds (no air movement), Bilateral: clear ( ) Cardiovascular: regular rate and rhythm (no mrg) Gastrointestinal: absent bowel sounds, non-tender, other (abdominal incision with dressing , obese. Drain in place, no bleeding; ostomy with brown stool) Integumentary: normal Extremities: no cyanosis, pink and warm, edema Neurologic: non-focal exam, pupils equal and round Psychiatric: mood appropriate, affect normal CBC and BMP: 10/05/17 04:00 10/06/17 04:07 ABG, PT/INR, D-dimer: ABG POC ABG pH 7.347 (7.35-7.45) L 09/13/17 11:36 ABG pH 7.323 pH Units (7.350-7.450) L 09/09/17 Unknown POC ABG pCO2 34.3 (35-45) L 09/13/17 11:36 ABG pCO2 41.1 mm Hg 09/09/17 Unknown POC ABG pO2 134 (80-105) H 09/13/17 11:36 ABG pO2 94.1 mm Hg (80.0-90.0) H 09/09/17 Unknown POC ABG HCO3 18.8 09/13/17 11:36 POC ABG Total CO2 20 09/13/17 11:36 POC ABG O2 Sat 99 09/13/17 11:36 ABG O2 Saturation 97.2 % (95.0-99.0) 09/09/17 Unknown PT/INR, D-dimer PT 14.9 Sec. (12.2-14.9) 09/21/17 07:00 INR 1.11 (0.87-1.13) 09/21/17 07:00 Abnormal lab findings: Abnormal Labs 08/08/17 08/08/17 08/09/17 21:23 21:31 11:19 WBC 15.7 H RBC 2.93 L Hgb 8.7 L Hct 26.8 L MCV MCH MCHC RDW 19.2 H Plt Count Lymph % (Auto) [place] % (Auto) [place] # Seg Neutrophils % Seg Neuts % (Manual) Lymphocytes % (Manual) Monocytes % (Manual) Nucleated RBC % Seg Neutrophils # Seg Neutrophils # Man Lymphocytes # (Manual) Monocytes # (Manual) Eosinophils # (Manual) Basophils # (Manual) PT INR POC ABG pH 7.490 H ABG pH POC ABG pCO2 POC ABG pO2 122 H ABG pO2 ABG O2 Saturation ABG Base Excess ABG Hemoglobin Oxyhemoglobin Sodium Potassium Chloride Carbon Dioxide BUN Creatinine Glucose POC Glucose Calcium Phosphorus Magnesium Iron TIBC Ferritin Total Bilirubin AST ALT Alkaline Phosphatase Total Creatine Kinase Troponin T 0.133 H* C-Reactive Protein Total Protein Albumin Triglycerides HDL Cholesterol 26 L Miscellaneous Test Crossmatch 08/09/17 08/10/17 08/10/17 13:25 04:45 04:45 WBC 15.5 H RBC 2.97 L Hgb 8.9 L Hct 27.0 L MCV MCH MCHC RDW 19.2 H Plt Count Lymph % (Auto) [place] % (Auto) [place] # Seg Neutrophils % Seg Neuts % (Manual) 73.0 H Lymphocytes % (Manual) 7.0 L Monocytes % (Manual) 14.0 H Nucleated RBC % Seg Neutrophils # Seg Neutrophils # Man 11.3 H Lymphocytes # (Manual) 1.1 L Monocytes # (Manual) 2.2 H Eosinophils # (Manual) Basophils # (Manual) 0.2 H PT INR POC ABG pH ABG pH POC ABG pCO2 POC ABG pO2 ABG pO2 ABG O2 Saturation ABG Base Excess ABG Hemoglobin Oxyhemoglobin Sodium Potassium 3.3 L Chloride 97.3 L Carbon Dioxide 21 L BUN 23 H Creatinine 6.5 H Glucose POC Glucose Calcium 7.3 L Phosphorus Magnesium Iron TIBC Ferritin Total Bilirubin AST ALT Alkaline Phosphatase 138 H Total Creatine Kinase Troponin T 0.132 H* C-Reactive Protein Total Protein 4.8 L Albumin 1.4 L Triglycerides HDL Cholesterol Miscellaneous Test Crossmatch 08/11/17 08/11/17 08/12/17 04:00 04:00 05:50 WBC 19.3 H RBC 3.10 L Hgb 9.5 L Hct 28.2 L MCV MCH MCHC RDW 19.2 H Plt Count 463 H Lymph % (Auto) 7.5 L [place] % (Auto) 14.6 H [place] # 2.8 H Seg Neutrophils % 77.0 H Seg Neuts % (Manual) Lymphocytes % (Manual) Monocytes % (Manual) Nucleated RBC % Seg Neutrophils # 14.8 H Seg Neutrophils # Man Lymphocytes # (Manual) Monocytes # (Manual) Eosinophils # (Manual) Basophils # (Manual) PT INR POC ABG pH ABG pH POC ABG pCO2 POC ABG pO2 ABG pO2 ABG O2 Saturation ABG Base Excess ABG Hemoglobin Oxyhemoglobin Sodium 136 L 136 L Potassium 3.3 L Chloride 96.3 L 96.6 L Carbon Dioxide BUN 26 H 26 H Creatinine 6.4 H 6.2 H Glucose 135 H 133 H POC Glucose Calcium 8.2 L Phosphorus Magnesium 1.30 L Iron TIBC Ferritin Total Bilirubin AST ALT Alkaline Phosphatase 139 H Total Creatine Kinase Troponin T C-Reactive Protein Total Protein 5.5 L Albumin 1.7 L Triglycerides HDL Cholesterol Miscellaneous Test Crossmatch 08/12/17 08/12/17 08/12/17 05:50 05:50 05:50 WBC 20.1 H RBC 3.06 L Hgb 9.3 L Hct 27.9 L MCV MCH MCHC RDW 18.4 H Plt Count 471 H Lymph % (Auto) [place] % (Auto) [place] # Seg Neutrophils % Seg Neuts % (Manual) 85.0 H Lymphocytes % (Manual) 8.0 L Monocytes % (Manual) Nucleated RBC % Seg Neutrophils # Seg Neutrophils # Man 17.1 H Lymphocytes # (Manual) Monocytes # (Manual) 1.0 H Eosinophils # (Manual) Basophils # (Manual) PT 15.2 H INR 1.14 H POC ABG pH ABG pH POC ABG pCO2 POC ABG pO2 ABG pO2 ABG O2 Saturation ABG Base Excess ABG Hemoglobin Oxyhemoglobin Sodium Potassium Chloride Carbon Dioxide BUN Creatinine Glucose POC Glucose Calcium Phosphorus Magnesium Iron TIBC Ferritin Total Bilirubin AST ALT Alkaline Phosphatase Total Creatine Kinase Troponin T C-Reactive Protein 28.90 H Total Protein Albumin Triglycerides HDL Cholesterol Miscellaneous Test Crossmatch 08/12/17 08/13/17 08/13/17 16:23 06:14 06:14 WBC 21.8 H RBC 3.11 L Hgb 9.4 L Hct 28.2 L MCV MCH MCHC RDW 18.2 H Plt Count 492 H Lymph % (Auto) [place] % (Auto) [place] # Seg Neutrophils % Seg Neuts % (Manual) 73.0 H Lymphocytes % (Manual) 2.0 L Monocytes % (Manual) 15 H Nucleated RBC % Seg Neutrophils # Seg Neutrophils # Man 15.9 H Lymphocytes # (Manual) 0.4 L Monocytes # (Manual) 2.4 H Eosinophils # (Manual) Basophils # (Manual) PT INR POC ABG pH ABG pH POC ABG pCO2 POC ABG pO2 ABG pO2 ABG O2 Saturation ABG Base Excess ABG Hemoglobin Oxyhemoglobin Sodium Potassium Chloride 96.2 L Carbon Dioxide BUN 28 H Creatinine 5.6 H Glucose 114 H POC Glucose Calcium Phosphorus Magnesium Iron TIBC Ferritin Total Bilirubin AST ALT Alkaline Phosphatase Total Creatine Kinase Troponin T C-Reactive Protein 26.10 H Total Protein Albumin Triglycerides HDL Cholesterol Miscellaneous Test Crossmatch 08/13/17 08/14/17 08/14/17 16:39 04:00 04:00 WBC 22.1 H RBC 3.25 L Hgb 9.9 L Hct 29.5 L MCV MCH MCHC RDW 17.9 H Plt Count 525 H Lymph % (Auto) [place] % (Auto) [place] # Seg Neutrophils % Seg Neuts % (Manual) 74.0 H Lymphocytes % (Manual) 8.0 L Monocytes % (Manual) 12.0 H Nucleated RBC % Seg Neutrophils # Seg Neutrophils # Man 16.4 H Lymphocytes # (Manual) Monocytes # (Manual) 2.7 H Eosinophils # (Manual) Basophils # (Manual) PT INR POC ABG pH ABG pH POC ABG pCO2 POC ABG pO2 ABG pO2 ABG O2 Saturation ABG Base Excess ABG Hemoglobin Oxyhemoglobin Sodium 134 L Potassium 3.3 L Chloride 93.3 L Carbon Dioxide BUN 27 H Creatinine 6.0 H Glucose 152 H POC Glucose 151 H Calcium Phosphorus Magnesium Iron TIBC Ferritin Total Bilirubin AST ALT Alkaline Phosphatase Total Creatine Kinase Troponin T C-Reactive Protein Total Protein Albumin Triglycerides HDL Cholesterol Miscellaneous Test Crossmatch 08/15/17 08/16/17 08/16/17 09:10 09:50 09:50 WBC 31.1 H RBC 3.21 L Hgb 9.6 L Hct 29.3 L MCV MCH MCHC RDW 18.1 H Plt Count 642 H Lymph % (Auto) [place] % (Auto) [place] # Seg Neutrophils % Seg Neuts % (Manual) 74.0 H Lymphocytes % (Manual) 4.0 L Monocytes % (Manual) 9.0 H Nucleated RBC % Seg Neutrophils # Seg Neutrophils # Man 23.0 H Lymphocytes # (Manual) Monocytes # (Manual) 2.8 H Eosinophils # (Manual) Basophils # (Manual) PT INR POC ABG pH ABG pH POC ABG pCO2 POC ABG pO2 ABG pO2 ABG O2 Saturation ABG Base Excess ABG Hemoglobin Oxyhemoglobin Sodium 136 L 136 L Potassium 3.5 L Chloride 97.6 L 94.9 L Carbon Dioxide BUN 27 H 28 H Creatinine 5.6 H 5.5 H Glucose 117 H 103 H POC Glucose Calcium Phosphorus Magnesium Iron TIBC Ferritin Total Bilirubin AST ALT Alkaline Phosphatase 137 H Total Creatine Kinase Troponin T C-Reactive Protein Total Protein 5.4 L Albumin 1.5 L Triglycerides HDL Cholesterol Miscellaneous Test Crossmatch 08/16/17 08/17/17 08/17/17 09:50 05:00 06:26 WBC RBC Hgb Hct MCV MCH MCHC RDW Plt Count Lymph % (Auto) [place] % (Auto) [place] # Seg Neutrophils % Seg Neuts % (Manual) Lymphocytes % (Manual) Monocytes % (Manual) Nucleated RBC % Seg Neutrophils # Seg Neutrophils # Man Lymphocytes # (Manual) Monocytes # (Manual) Eosinophils # (Manual) Basophils # (Manual) PT INR POC ABG pH ABG pH POC ABG pCO2 POC ABG pO2 ABG pO2 ABG O2 Saturation ABG Base Excess ABG Hemoglobin Oxyhemoglobin Sodium 134 L Potassium 3.0 L Chloride 97.8 L Carbon Dioxide BUN 30 H Creatinine 5.3 H Glucose 147 H POC Glucose 165 H Calcium 7.5 L Phosphorus Magnesium Iron TIBC Ferritin Total Bilirubin AST ALT Alkaline Phosphatase Total Creatine Kinase Troponin T C-Reactive Protein 32.30 H Total Protein Albumin Triglycerides HDL Cholesterol Miscellaneous Test Crossmatch 08/17/17 08/17/17 08/17/17 10:56 11:20 11:20 WBC 39.1 H RBC 3.10 L Hgb 9.2 L Hct 28.6 L MCV MCH MCHC RDW 18.3 H Plt Count 580 H Lymph % (Auto) [place] % (Auto) [place] # Seg Neutrophils % Seg Neuts % (Manual) 89.5 H Lymphocytes % (Manual) 3.5 L Monocytes % (Manual) Nucleated RBC % Seg Neutrophils # Seg Neutrophils # Man 35.0 H Lymphocytes # (Manual) Monocytes # (Manual) 2.5 H Eosinophils # (Manual) Basophils # (Manual) 0.2 H PT INR POC ABG pH 7.464 H ABG pH POC ABG pCO2 34.1 L POC ABG pO2 75 L ABG pO2 ABG O2 Saturation ABG Base Excess ABG Hemoglobin Oxyhemoglobin Sodium Potassium Chloride Carbon Dioxide BUN Creatinine Glucose POC Glucose Calcium Phosphorus Magnesium Iron TIBC Ferritin Total Bilirubin AST ALT Alkaline Phosphatase Total Creatine Kinase Troponin T C-Reactive Protein Total Protein Albumin Triglycerides HDL Cholesterol Miscellaneous Test Flexitest 1 H Crossmatch 08/17/17 08/17/17 08/17/17 11:20 16:57 20:20 WBC 34.4 H RBC 2.81 L Hgb 8.4 L Hct 26.0 L MCV MCH MCHC RDW 17.8 H Plt Count 455 H Lymph % (Auto) [place] % (Auto) [place] # Seg Neutrophils % Seg Neuts % (Manual) Lymphocytes % (Manual) 3.5 L Monocytes % (Manual) Nucleated RBC % 5.0 H Seg Neutrophils # Seg Neutrophils # Man 16.5 H Lymphocytes # (Manual) Monocytes # (Manual) 1.0 H Eosinophils # (Manual) Basophils # (Manual) PT 16.0 H INR 1.29 H POC ABG pH ABG pH POC ABG pCO2 POC ABG pO2 ABG pO2 ABG O2 Saturation ABG Base Excess ABG Hemoglobin Oxyhemoglobin Sodium 135 L Potassium 2.9 L* Chloride Carbon Dioxide 20 L BUN 32 H Creatinine 5.4 H Glucose 129 H POC Glucose Calcium 7.5 L Phosphorus Magnesium 1.50 L Iron TIBC Ferritin Total Bilirubin AST 85 H ALT Alkaline Phosphatase Total Creatine Kinase Troponin T C-Reactive Protein Total Protein 4.0 L D Albumin 1.6 L Triglycerides HDL Cholesterol Miscellaneous Test Crossmatch 08/17/17 08/17/17 08/18/17 20:54 23:47 04:26 WBC RBC Hgb Hct MCV MCH MCHC RDW Plt Count Lymph % (Auto) [place] % (Auto) [place] # Seg Neutrophils % Seg Neuts % (Manual) Lymphocytes % (Manual) Monocytes % (Manual) Nucleated RBC % Seg Neutrophils # Seg Neutrophils # Man Lymphocytes # (Manual) Monocytes # (Manual) Eosinophils # (Manual) Basophils # (Manual) PT INR POC ABG pH 7.557 H ABG pH POC ABG pCO2 23.1 L 29.0 L POC ABG pO2 187 H 148 H ABG pO2 ABG O2 Saturation ABG Base Excess ABG Hemoglobin Oxyhemoglobin Sodium Potassium Chloride Carbon Dioxide BUN Creatinine Glucose POC Glucose 188 H Calcium Phosphorus Magnesium Iron TIBC Ferritin Total Bilirubin AST ALT Alkaline Phosphatase Total Creatine Kinase Troponin T C-Reactive Protein Total Protein Albumin Triglycerides HDL Cholesterol Miscellaneous Test Crossmatch 08/18/17 08/18/17 08/18/17 05:51 11:44 17:07 WBC RBC Hgb Hct MCV MCH MCHC RDW Plt Count Lymph % (Auto) [place] % (Auto) [place] # Seg Neutrophils % Seg Neuts % (Manual) Lymphocytes % (Manual) Monocytes % (Manual) Nucleated RBC % Seg Neutrophils # Seg Neutrophils # Man Lymphocytes # (Manual) Monocytes # (Manual) Eosinophils # (Manual) Basophils # (Manual) PT INR POC ABG pH ABG pH POC ABG pCO2 POC ABG pO2 ABG pO2 ABG O2 Saturation ABG Base Excess ABG Hemoglobin Oxyhemoglobin Sodium Potassium Chloride Carbon Dioxide BUN Creatinine Glucose POC Glucose 202 H 195 H 182 H Calcium Phosphorus Magnesium Iron TIBC Ferritin Total Bilirubin AST ALT Alkaline Phosphatase Total Creatine Kinase Troponin T C-Reactive Protein Total Protein Albumin Triglycerides HDL Cholesterol Miscellaneous Test Crossmatch 08/18/17 08/18/17 08/18/17 23:45 Unknown Unknown WBC 39.0 H RBC 2.84 L Hgb 8.4 L Hct 26.5 L MCV MCH MCHC RDW 18.0 H Plt Count 476 H Lymph % (Auto) [place] % (Auto) [place] # Seg Neutrophils % Seg Neuts % (Manual) Lymphocytes % (Manual) 7.0 L Monocytes % (Manual) 10.0 H Nucleated RBC % 3.0 H Seg Neutrophils # Seg Neutrophils # Man 15.6 H Lymphocytes # (Manual) Monocytes # (Manual) 3.9 H Eosinophils # (Manual) Basophils # (Manual) PT INR POC ABG pH ABG pH POC ABG pCO2 POC ABG pO2 ABG pO2 ABG O2 Saturation ABG Base Excess ABG Hemoglobin Oxyhemoglobin Sodium Potassium Chloride Carbon Dioxide 19 L BUN 34 H Creatinine 5.6 H Glucose 201 H POC Glucose 163 H Calcium 7.8 L Phosphorus 1.90 L D Magnesium 1.60 L Iron TIBC Ferritin Total Bilirubin AST ALT Alkaline Phosphatase Total Creatine Kinase Troponin T C-Reactive Protein Total Protein Albumin Triglycerides HDL Cholesterol Miscellaneous Test Crossmatch 08/19/17 08/19/17 08/19/17 04:18 05:00 05:00 WBC 40.0 H RBC 2.46 L Hgb 7.3 L Hct 22.6 L MCV MCH MCHC RDW 18.1 H Plt Count Lymph % (Auto) [place] % (Auto) [place] # Seg Neutrophils % Seg Neuts % (Manual) Lymphocytes % (Manual) 8.0 L Monocytes % (Manual) Nucleated RBC % 2.0 H Seg Neutrophils # Seg Neutrophils # Man 16.4 H Lymphocytes # (Manual) Monocytes # (Manual) 1.2 H Eosinophils # (Manual) 1.2 H Basophils # (Manual) PT INR POC ABG pH 7.463 H ABG pH POC ABG pCO2 29.7 L POC ABG pO2 134 H ABG pO2 ABG O2 Saturation ABG Base Excess ABG Hemoglobin Oxyhemoglobin Sodium Potassium 5.1 H D Chloride Carbon Dioxide 20 L BUN 40 H Creatinine 5.3 H Glucose 128 H POC Glucose Calcium 7.8 L Phosphorus 1.90 L Magnesium Iron TIBC Ferritin Total Bilirubin AST ALT Alkaline Phosphatase Total Creatine Kinase Troponin T C-Reactive Protein Total Protein Albumin Triglycerides HDL Cholesterol Miscellaneous Test Crossmatch 08/19/17 08/19/17 08/19/17 05:19 07:37 09:52 WBC 45.0 H* RBC 2.50 L Hgb 7.5 L Hct 24.5 L MCV 98 H MCH MCHC RDW 18.4 H Plt Count Lymph % (Auto) [place] % (Auto) [place] # Seg Neutrophils % Seg Neuts % (Manual) 81.5 H Lymphocytes % (Manual) 4.0 L Monocytes % (Manual) Nucleated RBC % 1.0 H Seg Neutrophils # Seg Neutrophils # Man 36.7 H Lymphocytes # (Manual) Monocytes # (Manual) Eosinophils # (Manual) Basophils # (Manual) PT INR POC ABG pH ABG pH POC ABG pCO2 POC ABG pO2 ABG pO2 ABG O2 Saturation ABG Base Excess ABG Hemoglobin Oxyhemoglobin Sodium Potassium Chloride Carbon Dioxide BUN Creatinine Glucose POC Glucose 142 H Calcium Phosphorus Magnesium Iron TIBC Ferritin Total Bilirubin AST ALT Alkaline Phosphatase Total Creatine Kinase Troponin T C-Reactive Protein 34.20 H Total Protein Albumin Triglycerides HDL Cholesterol Miscellaneous Test Crossmatch 08/19/17 08/19/17 08/20/17 11:16 18:12 00:35 WBC RBC Hgb Hct MCV MCH MCHC RDW Plt Count Lymph % (Auto) [place] % (Auto) [place] # Seg Neutrophils % Seg Neuts % (Manual) Lymphocytes % (Manual) Monocytes % (Manual) Nucleated RBC % Seg Neutrophils # Seg Neutrophils # Man Lymphocytes # (Manual) Monocytes # (Manual) Eosinophils # (Manual) Basophils # (Manual) PT INR POC ABG pH ABG pH POC ABG pCO2 POC ABG pO2 ABG pO2 ABG O2 Saturation ABG Base Excess ABG Hemoglobin Oxyhemoglobin Sodium Potassium Chloride Carbon Dioxide BUN Creatinine Glucose POC Glucose 143 H 137 H 164 H Calcium Phosphorus Magnesium Iron TIBC Ferritin Total Bilirubin AST ALT Alkaline Phosphatase Total Creatine Kinase Troponin T C-Reactive Protein Total Protein Albumin Triglycerides HDL Cholesterol Miscellaneous Test Crossmatch 08/20/17 08/20/17 08/20/17 03:20 03:20 04:00 WBC 48.0 H* RBC 2.55 L Hgb 7.6 L Hct 23.4 L MCV MCH MCHC RDW 18.4 H Plt Count Lymph % (Auto) [place] % (Auto) [place] # Seg Neutrophils % Seg Neuts % (Manual) 90.0 H Lymphocytes % (Manual) 3.0 L Monocytes % (Manual) Nucleated RBC % Seg Neutrophils # Seg Neutrophils # Man 43.2 H Lymphocytes # (Manual) Monocytes # (Manual) 1.4 H Eosinophils # (Manual) 0.5 H Basophils # (Manual) PT INR POC ABG pH 7.499 H ABG pH POC ABG pCO2 29.1 L POC ABG pO2 ABG pO2 ABG O2 Saturation ABG Base Excess ABG Hemoglobin Oxyhemoglobin Sodium 135 L Potassium Chloride Carbon Dioxide BUN 28 H Creatinine 4.0 H Glucose 140 H POC Glucose Calcium 8.0 L Phosphorus 1.70 L Magnesium 1.60 L Iron TIBC Ferritin Total Bilirubin AST ALT Alkaline Phosphatase Total Creatine Kinase Troponin T C-Reactive Protein Total Protein Albumin Triglycerides HDL Cholesterol Miscellaneous Test Crossmatch 08/20/17 08/20/17 08/20/17 05:02 12:05 13:12 WBC RBC Hgb Hct MCV MCH MCHC RDW Plt Count Lymph % (Auto) [place] % (Auto) [place] # Seg Neutrophils % Seg Neuts % (Manual) Lymphocytes % (Manual) Monocytes % (Manual) Nucleated RBC % Seg Neutrophils # Seg Neutrophils # Man Lymphocytes # (Manual) Monocytes # (Manual) Eosinophils # (Manual) Basophils # (Manual) PT INR POC ABG pH 7.537 H ABG pH POC ABG pCO2 27.9 L POC ABG pO2 79 L ABG pO2 ABG O2 Saturation ABG Base Excess ABG Hemoglobin Oxyhemoglobin Sodium Potassium Chloride Carbon Dioxide BUN Creatinine Glucose POC Glucose 158 H 203 H Calcium Phosphorus Magnesium Iron TIBC Ferritin Total Bilirubin AST ALT Alkaline Phosphatase Total Creatine Kinase Troponin T C-Reactive Protein Total Protein Albumin Triglycerides HDL Cholesterol Miscellaneous Test Crossmatch 08/20/17 08/21/17 08/21/17 17:13 00:47 03:14 WBC RBC Hgb Hct MCV MCH MCHC RDW Plt Count Lymph % (Auto) [place] % (Auto) [place] # Seg Neutrophils % Seg Neuts % (Manual) Lymphocytes % (Manual) Monocytes % (Manual) Nucleated RBC % Seg Neutrophils # Seg Neutrophils # Man Lymphocytes # (Manual) Monocytes # (Manual) Eosinophils # (Manual) Basophils # (Manual) PT INR POC ABG pH 7.481 H ABG pH POC ABG pCO2 29.6 L POC ABG pO2 ABG pO2 ABG O2 Saturation ABG Base Excess ABG Hemoglobin Oxyhemoglobin Sodium Potassium Chloride Carbon Dioxide BUN Creatinine Glucose POC Glucose 188 H 109 H Calcium Phosphorus Magnesium Iron TIBC Ferritin Total Bilirubin AST ALT Alkaline Phosphatase Total Creatine Kinase Troponin T C-Reactive Protein Total Protein Albumin Triglycerides HDL Cholesterol Miscellaneous Test Crossmatch 08/21/17 08/21/17 08/21/17 05:05 06:50 06:50 WBC 44.7 H* RBC 2.41 L Hgb 7.1 L Hct 22.1 L MCV MCH MCHC RDW 18.3 H Plt Count Lymph % (Auto) [place] % (Auto) [place] # Seg Neutrophils % Seg Neuts % (Manual) 89.0 H Lymphocytes % (Manual) 0 L Monocytes % (Manual) Nucleated RBC % 1.0 H Seg Neutrophils # Seg Neutrophils # Man 39.8 H Lymphocytes # (Manual) 0.0 L Monocytes # (Manual) 1.3 H Eosinophils # (Manual) Basophils # (Manual) PT INR POC ABG pH ABG pH POC ABG pCO2 POC ABG pO2 ABG pO2 ABG O2 Saturation ABG Base Excess ABG Hemoglobin Oxyhemoglobin Sodium 135 L Potassium Chloride Carbon Dioxide BUN 39 H Creatinine 4.4 H Glucose 147 H POC Glucose 166 H Calcium 8.1 L Phosphorus Magnesium Iron TIBC Ferritin Total Bilirubin AST ALT < 5 L Alkaline Phosphatase 164 H Total Creatine Kinase Troponin T C-Reactive Protein Total Protein 4.7 L Albumin 1.4 L Triglycerides HDL Cholesterol Miscellaneous Test Crossmatch 08/21/17 08/21/17 08/21/17 08:00 12:21 17:02 WBC RBC Hgb Hct MCV MCH MCHC RDW Plt Count Lymph % (Auto) [place] % (Auto) [place] # Seg Neutrophils % Seg Neuts % (Manual) Lymphocytes % (Manual) Monocytes % (Manual) Nucleated RBC % Seg Neutrophils # Seg Neutrophils # Man Lymphocytes # (Manual) Monocytes # (Manual) Eosinophils # (Manual) Basophils # (Manual) PT INR POC ABG pH ABG pH POC ABG pCO2 POC ABG pO2 ABG pO2 ABG O2 Saturation ABG Base Excess ABG Hemoglobin Oxyhemoglobin Sodium Potassium Chloride Carbon Dioxide BUN Creatinine Glucose POC Glucose 147 H 135 H Calcium Phosphorus Magnesium Iron TIBC Ferritin Total Bilirubin AST ALT Alkaline Phosphatase Total Creatine Kinase Troponin T C-Reactive Protein Total Protein Albumin Triglycerides HDL Cholesterol Miscellaneous Test Crossmatch See Detail 08/21/17 08/22/17 08/22/17 23:38 03:40 03:40 WBC 42.5 H* RBC 2.88 L Hgb 8.5 L Hct 26.3 L MCV MCH MCHC RDW 17.9 H Plt Count Lymph % (Auto) [place] % (Auto) [place] # Seg Neutrophils % Seg Neuts % (Manual) Lymphocytes % (Manual) 5.0 L Monocytes % (Manual) Nucleated RBC % Seg Neutrophils # Seg Neutrophils # Man 19.6 H Lymphocytes # (Manual) Monocytes # (Manual) 2.6 H Eosinophils # (Manual) Basophils # (Manual) PT INR POC ABG pH ABG pH POC ABG pCO2 POC ABG pO2 ABG pO2 ABG O2 Saturation ABG Base Excess ABG Hemoglobin Oxyhemoglobin Sodium Potassium 3.3 L D Chloride Carbon Dioxide BUN 27 H Creatinine 2.9 H Glucose 144 H POC Glucose 251 H Calcium 8.0 L Phosphorus 2.40 L Magnesium Iron TIBC Ferritin Total Bilirubin AST ALT Alkaline Phosphatase Total Creatine Kinase Troponin T C-Reactive Protein Total Protein Albumin Triglycerides HDL Cholesterol Miscellaneous Test Crossmatch 08/22/17 08/22/17 08/22/17 06:37 08:50 11:25 WBC RBC Hgb Hct MCV MCH MCHC RDW Plt Count Lymph % (Auto) [place] % (Auto) [place] # Seg Neutrophils % Seg Neuts % (Manual) Lymphocytes % (Manual) Monocytes % (Manual) Nucleated RBC % Seg Neutrophils # Seg Neutrophils # Man Lymphocytes # (Manual) Monocytes # (Manual) Eosinophils # (Manual) Basophils # (Manual) PT INR POC ABG pH ABG pH POC ABG pCO2 POC ABG pO2 ABG pO2 ABG O2 Saturation ABG Base Excess ABG Hemoglobin Oxyhemoglobin Sodium Potassium Chloride Carbon Dioxide BUN Creatinine Glucose POC Glucose 152 H 175 H Calcium Phosphorus Magnesium Iron TIBC Ferritin Total Bilirubin AST ALT Alkaline Phosphatase Total Creatine Kinase Troponin T C-Reactive Protein Total Protein Albumin Triglycerides HDL Cholesterol Miscellaneous Test Flexitest 1 H Crossmatch 08/22/17 08/22/17 08/22/17 16:25 17:56 23:03 WBC RBC Hgb Hct MCV MCH MCHC RDW Plt Count Lymph % (Auto) [place] % (Auto) [place] # Seg Neutrophils % Seg Neuts % (Manual) Lymphocytes % (Manual) Monocytes % (Manual) Nucleated RBC % Seg Neutrophils # Seg Neutrophils # Man Lymphocytes # (Manual) Monocytes # (Manual) Eosinophils # (Manual) Basophils # (Manual) PT INR POC ABG pH ABG pH POC ABG pCO2 POC ABG pO2 ABG pO2 ABG O2 Saturation ABG Base Excess ABG Hemoglobin Oxyhemoglobin Sodium Potassium Chloride Carbon Dioxide BUN Creatinine Glucose POC Glucose 232 H 192 H Calcium Phosphorus Magnesium Iron TIBC Ferritin Total Bilirubin AST ALT Alkaline Phosphatase Total Creatine Kinase Troponin T C-Reactive Protein 30.70 H Total Protein Albumin Triglycerides HDL Cholesterol Miscellaneous Test Crossmatch 08/23/17 08/23/17 08/23/17 05:36 08:50 12:14 WBC RBC Hgb Hct MCV MCH MCHC RDW Plt Count Lymph % (Auto) [place] % (Auto) [place] # Seg Neutrophils % Seg Neuts % (Manual) Lymphocytes % (Manual) Monocytes % (Manual) Nucleated RBC % Seg Neutrophils # Seg Neutrophils # Man Lymphocytes # (Manual) Monocytes # (Manual) Eosinophils # (Manual) Basophils # (Manual) PT INR POC ABG pH ABG pH POC ABG pCO2 POC ABG pO2 ABG pO2 ABG O2 Saturation ABG Base Excess ABG Hemoglobin Oxyhemoglobin Sodium Potassium Chloride 107.1 H Carbon Dioxide BUN 49 H Creatinine 3.3 H Glucose 172 H POC Glucose 206 H 238 H Calcium Phosphorus Magnesium 2.40 H Iron TIBC Ferritin Total Bilirubin AST ALT Alkaline Phosphatase Total Creatine Kinase Troponin T C-Reactive Protein Total Protein Albumin Triglycerides HDL Cholesterol Miscellaneous Test Crossmatch 08/23/17 08/23/17 08/24/17 17:21 23:13 04:00 WBC 34.2 H RBC 2.86 L Hgb 8.4 L Hct 25.9 L MCV MCH MCHC RDW 17.9 H Plt Count Lymph % (Auto) [place] % (Auto) [place] # Seg Neutrophils % Seg Neuts % (Manual) 85.0 H Lymphocytes % (Manual) 0.5 L Monocytes % (Manual) Nucleated RBC % 1.0 H Seg Neutrophils # Seg Neutrophils # Man 29.1 H Lymphocytes # (Manual) 0.2 L Monocytes # (Manual) 2.4 H Eosinophils # (Manual) Basophils # (Manual) PT INR POC ABG pH ABG pH POC ABG pCO2 POC ABG pO2 ABG pO2 ABG O2 Saturation ABG Base Excess ABG Hemoglobin Oxyhemoglobin Sodium Potassium Chloride Carbon Dioxide BUN Creatinine Glucose POC Glucose 226 H 183 H Calcium Phosphorus Magnesium Iron TIBC Ferritin Total Bilirubin AST ALT Alkaline Phosphatase Total Creatine Kinase Troponin T C-Reactive Protein Total Protein Albumin Triglycerides HDL Cholesterol Miscellaneous Test Crossmatch 08/24/17 08/24/17 08/24/17 05:06 09:30 12:04 WBC RBC Hgb Hct MCV MCH MCHC RDW Plt Count Lymph % (Auto) [place] % (Auto) [place] # Seg Neutrophils % Seg Neuts % (Manual) Lymphocytes % (Manual) Monocytes % (Manual) Nucleated RBC % Seg Neutrophils # Seg Neutrophils # Man Lymphocytes # (Manual) Monocytes # (Manual) Eosinophils # (Manual) Basophils # (Manual) PT INR POC ABG pH ABG pH POC ABG pCO2 POC ABG pO2 ABG pO2 ABG O2 Saturation ABG Base Excess ABG Hemoglobin Oxyhemoglobin Sodium Potassium Chloride Carbon Dioxide BUN 46 H Creatinine 2.5 H Glucose 176 H POC Glucose 201 H 181 H Calcium Phosphorus Magnesium Iron TIBC Ferritin Total Bilirubin AST ALT Alkaline Phosphatase Total Creatine Kinase Troponin T C-Reactive Protein Total Protein Albumin Triglycerides HDL Cholesterol Miscellaneous Test Crossmatch 08/24/17 08/24/17 08/25/17 18:04 23:05 05:05 WBC RBC Hgb Hct MCV MCH MCHC RDW Plt Count Lymph % (Auto) [place] % (Auto) [place] # Seg Neutrophils % Seg Neuts % (Manual) Lymphocytes % (Manual) Monocytes % (Manual) Nucleated RBC % Seg Neutrophils # Seg Neutrophils # Man Lymphocytes # (Manual) Monocytes # (Manual) Eosinophils # (Manual) Basophils # (Manual) PT INR POC ABG pH ABG pH POC ABG pCO2 POC ABG pO2 ABG pO2 ABG O2 Saturation ABG Base Excess ABG Hemoglobin Oxyhemoglobin Sodium Potassium Chloride Carbon Dioxide BUN Creatinine Glucose POC Glucose 189 H 175 H 190 H Calcium Phosphorus Magnesium Iron TIBC Ferritin Total Bilirubin AST ALT Alkaline Phosphatase Total Creatine Kinase Troponin T C-Reactive Protein Total Protein Albumin Triglycerides HDL Cholesterol Miscellaneous Test Crossmatch 08/25/17 08/25/17 08/26/17 07:02 11:53 05:30 WBC 33.5 H RBC 2.47 L Hgb 7.3 L Hct 23.0 L MCV MCH MCHC RDW 21.3 H Plt Count Lymph % (Auto) [place] % (Auto) [place] # Seg Neutrophils % Seg Neuts % (Manual) 92.0 H Lymphocytes % (Manual) 1.0 L Monocytes % (Manual) Nucleated RBC % Seg Neutrophils # Seg Neutrophils # Man 30.8 H Lymphocytes # (Manual) 0.3 L Monocytes # (Manual) Eosinophils # (Manual) Basophils # (Manual) PT INR POC ABG pH ABG pH POC ABG pCO2 POC ABG pO2 ABG pO2 ABG O2 Saturation ABG Base Excess ABG Hemoglobin Oxyhemoglobin Sodium Potassium Chloride Carbon Dioxide BUN 32 H Creatinine 5.0 H D Glucose 117 H POC Glucose 191 H Calcium 8.0 L Phosphorus Magnesium Iron TIBC Ferritin Total Bilirubin AST ALT Alkaline Phosphatase Total Creatine Kinase Troponin T C-Reactive Protein Total Protein Albumin Triglycerides HDL Cholesterol Miscellaneous Test Crossmatch 08/26/17 08/26/17 08/26/17 05:30 06:44 13:26 WBC RBC Hgb Hct MCV MCH MCHC RDW Plt Count Lymph % (Auto) [place] % (Auto) [place] # Seg Neutrophils % Seg Neuts % (Manual) Lymphocytes % (Manual) Monocytes % (Manual) Nucleated RBC % Seg Neutrophils # Seg Neutrophils # Man Lymphocytes # (Manual) Monocytes # (Manual) Eosinophils # (Manual) Basophils # (Manual) PT INR POC ABG pH ABG pH POC ABG pCO2 POC ABG pO2 ABG pO2 ABG O2 Saturation ABG Base Excess ABG Hemoglobin Oxyhemoglobin Sodium Potassium 5.2 H Chloride Carbon Dioxide BUN 80 H Creatinine 3.4 H Glucose 193 H POC Glucose 232 H 207 H Calcium 8.3 L Phosphorus 6.80 H D Magnesium 2.60 H Iron TIBC Ferritin Total Bilirubin AST 135 H ALT Alkaline Phosphatase 211 H Total Creatine Kinase Troponin T C-Reactive Protein Total Protein 4.8 L Albumin 2.0 L Triglycerides HDL Cholesterol Miscellaneous Test Crossmatch 08/27/17 08/27/17 08/27/17 01:08 06:20 06:20 WBC 35.0 H RBC 2.75 L Hgb 8.4 L Hct 25.1 L MCV MCH MCHC RDW 21.8 H Plt Count Lymph % (Auto) [place] % (Auto) [place] # Seg Neutrophils % Seg Neuts % (Manual) Lymphocytes % (Manual) 4.5 L Monocytes % (Manual) Nucleated RBC % Seg Neutrophils # Seg Neutrophils # Man 31.9 H Lymphocytes # (Manual) Monocytes # (Manual) 1.2 H Eosinophils # (Manual) Basophils # (Manual) PT INR POC ABG pH ABG pH POC ABG pCO2 POC ABG pO2 ABG pO2 ABG O2 Saturation ABG Base Excess ABG Hemoglobin Oxyhemoglobin Sodium Potassium Chloride Carbon Dioxide BUN 61 H Creatinine 2.6 H Glucose 184 H POC Glucose 146 H Calcium Phosphorus 4.90 H D Magnesium Iron TIBC Ferritin Total Bilirubin AST ALT Alkaline Phosphatase Total Creatine Kinase Troponin T C-Reactive Protein Total Protein Albumin Triglycerides HDL Cholesterol Miscellaneous Test Crossmatch 08/27/17 08/27/17 08/27/17 07:01 09:17 12:52 WBC RBC Hgb Hct MCV MCH MCHC RDW Plt Count Lymph % (Auto) [place] % (Auto) [place] # Seg Neutrophils % Seg Neuts % (Manual) Lymphocytes % (Manual) Monocytes % (Manual) Nucleated RBC % Seg Neutrophils # Seg Neutrophils # Man Lymphocytes # (Manual) Monocytes # (Manual) Eosinophils # (Manual) Basophils # (Manual) PT INR POC ABG pH ABG pH POC ABG pCO2 POC ABG pO2 ABG pO2 ABG O2 Saturation ABG Base Excess ABG Hemoglobin Oxyhemoglobin Sodium Potassium Chloride Carbon Dioxide BUN Creatinine Glucose POC Glucose 165 H 198 H 218 H Calcium Phosphorus Magnesium Iron TIBC Ferritin Total Bilirubin AST ALT Alkaline Phosphatase Total Creatine Kinase Troponin T C-Reactive Protein Total Protein Albumin Triglycerides HDL Cholesterol Miscellaneous Test Crossmatch 08/27/17 08/28/17 08/28/17 17:27 02:13 06:46 WBC RBC Hgb Hct MCV MCH MCHC RDW Plt Count Lymph % (Auto) [place] % (Auto) [place] # Seg Neutrophils % Seg Neuts % (Manual) Lymphocytes % (Manual) Monocytes % (Manual) Nucleated RBC % Seg Neutrophils # Seg Neutrophils # Man Lymphocytes # (Manual) Monocytes # (Manual) Eosinophils # (Manual) Basophils # (Manual) PT INR POC ABG pH ABG pH POC ABG pCO2 POC ABG pO2 ABG pO2 ABG O2 Saturation ABG Base Excess ABG Hemoglobin Oxyhemoglobin Sodium Potassium Chloride Carbon Dioxide BUN Creatinine Glucose POC Glucose 151 H 155 H 230 H Calcium Phosphorus Magnesium Iron TIBC Ferritin Total Bilirubin AST ALT Alkaline Phosphatase Total Creatine Kinase Troponin T C-Reactive Protein Total Protein Albumin Triglycerides HDL Cholesterol Miscellaneous Test Crossmatch 08/28/17 08/28/17 08/28/17 06:53 06:53 08:19 WBC 31.1 H RBC 2.26 L Hgb 6.8 L Hct 20.9 L MCV MCH MCHC RDW 21.7 H Plt Count Lymph % (Auto) [place] % (Auto) [place] # Seg Neutrophils % Seg Neuts % (Manual) 83.0 H Lymphocytes % (Manual) 4.0 L Monocytes % (Manual) Nucleated RBC % Seg Neutrophils # Seg Neutrophils # Man 25.8 H Lymphocytes # (Manual) Monocytes # (Manual) Eosinophils # (Manual) Basophils # (Manual) PT INR POC ABG pH ABG pH POC ABG pCO2 POC ABG pO2 ABG pO2 ABG O2 Saturation ABG Base Excess ABG Hemoglobin Oxyhemoglobin Sodium Potassium Chloride Carbon Dioxide BUN 81 H Creatinine 3.4 H Glucose 218 H POC Glucose 239 H Calcium Phosphorus 4.90 H Magnesium Iron TIBC Ferritin Total Bilirubin AST ALT Alkaline Phosphatase Total Creatine Kinase Troponin T C-Reactive Protein Total Protein Albumin Triglycerides HDL Cholesterol Miscellaneous Test Crossmatch 08/28/17 08/28/17 08/28/17 11:56 13:05 13:29 WBC RBC Hgb Hct MCV MCH MCHC RDW Plt Count Lymph % (Auto) [place] % (Auto) [place] # Seg Neutrophils % Seg Neuts % (Manual) Lymphocytes % (Manual) Monocytes % (Manual) Nucleated RBC % Seg Neutrophils # Seg Neutrophils # Man Lymphocytes # (Manual) Monocytes # (Manual) Eosinophils # (Manual) Basophils # (Manual) PT 16.7 H INR 1.29 H POC ABG pH ABG pH POC ABG pCO2 POC ABG pO2 338 H ABG pO2 ABG O2 Saturation ABG Base Excess ABG Hemoglobin Oxyhemoglobin Sodium Potassium Chloride Carbon Dioxide BUN Creatinine Glucose POC Glucose Calcium Phosphorus Magnesium Iron TIBC Ferritin Total Bilirubin AST ALT Alkaline Phosphatase Total Creatine Kinase Troponin T C-Reactive Protein Total Protein Albumin Triglycerides HDL Cholesterol Miscellaneous Test Crossmatch See Detail 08/28/17 08/28/17 08/29/17 16:22 19:20 04:24 WBC RBC Hgb Hct MCV MCH MCHC RDW Plt Count Lymph % (Auto) [place] % (Auto) [place] # Seg Neutrophils % Seg Neuts % (Manual) Lymphocytes % (Manual) Monocytes % (Manual) Nucleated RBC % Seg Neutrophils # Seg Neutrophils # Man Lymphocytes # (Manual) Monocytes # (Manual) Eosinophils # (Manual) Basophils # (Manual) PT INR POC ABG pH 7.469 H ABG pH POC ABG pCO2 POC ABG pO2 240 H ABG pO2 ABG O2 Saturation ABG Base Excess ABG Hemoglobin Oxyhemoglobin Sodium Potassium Chloride Carbon Dioxide BUN Creatinine Glucose POC Glucose 209 H 195 H Calcium Phosphorus Magnesium Iron TIBC Ferritin Total Bilirubin AST ALT Alkaline Phosphatase Total Creatine Kinase Troponin T C-Reactive Protein Total Protein Albumin Triglycerides HDL Cholesterol Miscellaneous Test Crossmatch 08/29/17 08/29/17 08/29/17 04:30 04:30 12:07 WBC 44.9 H* RBC Hgb Hct MCV MCH MCHC RDW 23.1 H Plt Count Lymph % (Auto) [place] % (Auto) [place] # Seg Neutrophils % Seg Neuts % (Manual) 38.0 L Lymphocytes % (Manual) 10.0 L Monocytes % (Manual) 10.0 H Nucleated RBC % 6.0 H Seg Neutrophils # Seg Neutrophils # Man 17.1 H Lymphocytes # (Manual) Monocytes # (Manual) 4.5 H Eosinophils # (Manual) Basophils # (Manual) PT INR POC ABG pH ABG pH POC ABG pCO2 POC ABG pO2 ABG pO2 ABG O2 Saturation ABG Base Excess ABG Hemoglobin Oxyhemoglobin Sodium Potassium Chloride Carbon Dioxide BUN 61 H Creatinine 2.4 H Glucose 226 H POC Glucose 200 H Calcium Phosphorus Magnesium Iron TIBC Ferritin Total Bilirubin AST ALT Alkaline Phosphatase Total Creatine Kinase Troponin T C-Reactive Protein Total Protein Albumin Triglycerides HDL Cholesterol Miscellaneous Test Crossmatch 08/29/17 08/29/17 08/29/17 12:30 12:30 17:23 WBC RBC Hgb Hct MCV MCH MCHC RDW Plt Count Lymph % (Auto) [place] % (Auto) [place] # Seg Neutrophils % Seg Neuts % (Manual) Lymphocytes % (Manual) Monocytes % (Manual) Nucleated RBC % Seg Neutrophils # Seg Neutrophils # Man Lymphocytes # (Manual) Monocytes # (Manual) Eosinophils # (Manual) Basophils # (Manual) PT INR POC ABG pH ABG pH POC ABG pCO2 POC ABG pO2 ABG pO2 ABG O2 Saturation ABG Base Excess ABG Hemoglobin Oxyhemoglobin Sodium Potassium Chloride Carbon Dioxide BUN Creatinine Glucose POC Glucose 270 H Calcium Phosphorus Magnesium Iron TIBC Ferritin Total Bilirubin AST ALT Alkaline Phosphatase Total Creatine Kinase Troponin T C-Reactive Protein 19.10 H Total Protein Albumin Triglycerides HDL Cholesterol Miscellaneous Test Flexitest 1 H Crossmatch 08/30/17 08/30/17 08/30/17 00:10 01:30 03:31 WBC RBC Hgb Hct MCV MCH MCHC RDW Plt Count Lymph % (Auto) [place] % (Auto) [place] # Seg Neutrophils % Seg Neuts % (Manual) Lymphocytes % (Manual) Monocytes % (Manual) Nucleated RBC % Seg Neutrophils # Seg Neutrophils # Man Lymphocytes # (Manual) Monocytes # (Manual) Eosinophils # (Manual) Basophils # (Manual) PT INR POC ABG pH 7.168 L 7.335 L ABG pH POC ABG pCO2 72.8 H POC ABG pO2 257 H 117 H ABG pO2 ABG O2 Saturation ABG Base Excess ABG Hemoglobin Oxyhemoglobin Sodium Potassium Chloride Carbon Dioxide BUN Creatinine Glucose POC Glucose 245 H Calcium Phosphorus Magnesium Iron TIBC Ferritin Total Bilirubin AST ALT Alkaline Phosphatase Total Creatine Kinase Troponin T C-Reactive Protein Total Protein Albumin Triglycerides HDL Cholesterol Miscellaneous Test Crossmatch 08/30/17 08/30/17 08/30/17 05:20 05:20 05:20 WBC 40.9 H* RBC 3.64 L Hgb Hct MCV MCH MCHC RDW 24.3 H Plt Count Lymph % (Auto) [place] % (Auto) [place] # Seg Neutrophils % Seg Neuts % (Manual) 80.0 H Lymphocytes % (Manual) 3.0 L Monocytes % (Manual) Nucleated RBC % 1.0 H Seg Neutrophils # Seg Neutrophils # Man 32.7 H Lymphocytes # (Manual) Monocytes # (Manual) Eosinophils # (Manual) Basophils # (Manual) PT INR POC ABG pH ABG pH POC ABG pCO2 POC ABG pO2 ABG pO2 ABG O2 Saturation ABG Base Excess ABG Hemoglobin Oxyhemoglobin Sodium Potassium Chloride Carbon Dioxide BUN 83 H Creatinine 2.9 H Glucose 334 H POC Glucose 309 H Calcium Phosphorus Magnesium Iron TIBC Ferritin Total Bilirubin AST ALT Alkaline Phosphatase Total Creatine Kinase Troponin T C-Reactive Protein Total Protein Albumin Triglycerides HDL Cholesterol Miscellaneous Test Crossmatch 08/30/17 08/30/17 08/31/17 12:18 17:36 00:17 WBC RBC Hgb Hct MCV MCH MCHC RDW Plt Count Lymph % (Auto) [place] % (Auto) [place] # Seg Neutrophils % Seg Neuts % (Manual) Lymphocytes % (Manual) Monocytes % (Manual) Nucleated RBC % Seg Neutrophils # Seg Neutrophils # Man Lymphocytes # (Manual) Monocytes # (Manual) Eosinophils # (Manual) Basophils # (Manual) PT INR POC ABG pH ABG pH POC ABG pCO2 POC ABG pO2 ABG pO2 ABG O2 Saturation ABG Base Excess ABG Hemoglobin Oxyhemoglobin Sodium Potassium Chloride Carbon Dioxide BUN Creatinine Glucose POC Glucose 273 H 293 H 360 H Calcium Phosphorus Magnesium Iron TIBC Ferritin Total Bilirubin AST ALT Alkaline Phosphatase Total Creatine Kinase Troponin T C-Reactive Protein Total Protein Albumin Triglycerides HDL Cholesterol Miscellaneous Test Crossmatch 08/31/17 08/31/17 08/31/17 05:30 05:30 05:32 WBC 29.9 H RBC 2.89 L Hgb 8.2 L Hct 24.7 L D MCV MCH MCHC RDW 24.4 H Plt Count Lymph % (Auto) [place] % (Auto) [place] # Seg Neutrophils % Seg Neuts % (Manual) Lymphocytes % (Manual) 2.0 L Monocytes % (Manual) Nucleated RBC % 2.0 H Seg Neutrophils # Seg Neutrophils # Man 18.5 H Lymphocytes # (Manual) 0.6 L Monocytes # (Manual) 0.9 H Eosinophils # (Manual) Basophils # (Manual) PT INR POC ABG pH ABG pH POC ABG pCO2 POC ABG pO2 ABG pO2 ABG O2 Saturation ABG Base Excess ABG Hemoglobin Oxyhemoglobin Sodium Potassium Chloride Carbon Dioxide BUN 62 H Creatinine 2.2 H Glucose 245 H POC Glucose 257 H Calcium Phosphorus 2.10 L D Magnesium 1.60 L Iron TIBC Ferritin Total Bilirubin AST ALT Alkaline Phosphatase Total Creatine Kinase Troponin T C-Reactive Protein Total Protein Albumin Triglycerides HDL Cholesterol Miscellaneous Test Crossmatch 08/31/17 08/31/17 08/31/17 11:56 12:05 18:14 WBC 32.5 H RBC 3.19 L Hgb 8.8 L Hct 27.9 L MCV MCH MCHC RDW 24.9 H Plt Count Lymph % (Auto) [place] % (Auto) [place] # Seg Neutrophils % Seg Neuts % (Manual) Lymphocytes % (Manual) 1.0 L Monocytes % (Manual) 12.0 H Nucleated RBC % 1.0 H Seg Neutrophils # Seg Neutrophils # Man 13.3 H Lymphocytes # (Manual) 0.3 L Monocytes # (Manual) 3.9 H Eosinophils # (Manual) Basophils # (Manual) PT INR POC ABG pH ABG pH POC ABG pCO2 POC ABG pO2 ABG pO2 ABG O2 Saturation ABG Base Excess ABG Hemoglobin Oxyhemoglobin Sodium Potassium Chloride Carbon Dioxide BUN Creatinine Glucose POC Glucose 245 H Calcium Phosphorus Magnesium Iron TIBC Ferritin Total Bilirubin AST ALT Alkaline Phosphatase Total Creatine Kinase Troponin T C-Reactive Protein Total Protein Albumin Triglycerides HDL Cholesterol Miscellaneous Test Crossmatch See Detail 08/31/17 08/31/17 08/31/17 18:14 18:15 18:22 WBC RBC Hgb Hct MCV MCH MCHC RDW Plt Count Lymph % (Auto) [place] % (Auto) [place] # Seg Neutrophils % Seg Neuts % (Manual) Lymphocytes % (Manual) Monocytes % (Manual) Nucleated RBC % Seg Neutrophils # Seg Neutrophils # Man Lymphocytes # (Manual) Monocytes # (Manual) Eosinophils # (Manual) Basophils # (Manual) PT 15.1 H INR POC ABG pH ABG pH POC ABG pCO2 POC ABG pO2 ABG pO2 ABG O2 Saturation ABG Base Excess ABG Hemoglobin Oxyhemoglobin Sodium 136 L Potassium Chloride Carbon Dioxide 21 L BUN 69 H Creatinine 2.3 H Glucose 227 H POC Glucose 240 H Calcium Phosphorus 2.40 L Magnesium 1.50 L Iron TIBC Ferritin Total Bilirubin AST 143 H ALT 114 H Alkaline Phosphatase 267 H Total Creatine Kinase Troponin T C-Reactive Protein Total Protein 4.1 L Albumin 1.8 L Triglycerides HDL Cholesterol Miscellaneous Test Crossmatch 08/31/17 09/01/17 09/01/17 23:53 05:00 05:00 WBC 33.9 H RBC 2.85 L Hgb 7.8 L Hct 24.8 L MCV MCH 27 L MCHC RDW 23.9 H Plt Count Lymph % (Auto) [place] % (Auto) [place] # Seg Neutrophils % Seg Neuts % (Manual) Lymphocytes % (Manual) 5.0 L Monocytes % (Manual) Nucleated RBC % Seg Neutrophils # Seg Neutrophils # Man 23.1 H Lymphocytes # (Manual) Monocytes # (Manual) Eosinophils # (Manual) Basophils # (Manual) PT INR POC ABG pH ABG pH POC ABG pCO2 POC ABG pO2 ABG pO2 ABG O2 Saturation ABG Base Excess ABG Hemoglobin Oxyhemoglobin Sodium Potassium Chloride Carbon Dioxide BUN 51 H Creatinine 1.8 H Glucose 195 H POC Glucose 301 H Calcium Phosphorus 1.70 L D Magnesium 1.60 L Iron TIBC Ferritin Total Bilirubin AST 80 H ALT 82 H Alkaline Phosphatase 243 H Total Creatine Kinase Troponin T C-Reactive Protein Total Protein 4.2 L Albumin 1.7 L Triglycerides HDL Cholesterol Miscellaneous Test Crossmatch 09/01/17 09/01/17 09/01/17 05:20 05:47 11:37 WBC RBC Hgb Hct MCV MCH MCHC RDW Plt Count Lymph % (Auto) [place] % (Auto) [place] # Seg Neutrophils % Seg Neuts % (Manual) Lymphocytes % (Manual) Monocytes % (Manual) Nucleated RBC % Seg Neutrophils # Seg Neutrophils # Man Lymphocytes # (Manual) Monocytes # (Manual) Eosinophils # (Manual) Basophils # (Manual) PT INR POC ABG pH ABG pH 7.348 L POC ABG pCO2 POC ABG pO2 ABG pO2 70.2 L ABG O2 Saturation ABG Base Excess ABG Hemoglobin 7.5 L Oxyhemoglobin Sodium Potassium Chloride Carbon Dioxide BUN Creatinine Glucose POC Glucose 230 H 254 H Calcium Phosphorus Magnesium Iron TIBC Ferritin Total Bilirubin AST ALT Alkaline Phosphatase Total Creatine Kinase Troponin T C-Reactive Protein Total Protein Albumin Triglycerides HDL Cholesterol Miscellaneous Test Crossmatch 09/01/17 09/01/17 09/02/17 17:39 23:14 04:55 WBC RBC Hgb Hct MCV MCH MCHC RDW Plt Count Lymph % (Auto) [place] % (Auto) [place] # Seg Neutrophils % Seg Neuts % (Manual) Lymphocytes % (Manual) Monocytes % (Manual) Nucleated RBC % Seg Neutrophils # Seg Neutrophils # Man Lymphocytes # (Manual) Monocytes # (Manual) Eosinophils # (Manual) Basophils # (Manual) PT INR POC ABG pH ABG pH POC ABG pCO2 POC ABG pO2 ABG pO2 124.8 H ABG O2 Saturation ABG Base Excess -2.9 L ABG Hemoglobin 5.8 L Oxyhemoglobin Sodium Potassium Chloride Carbon Dioxide BUN Creatinine Glucose POC Glucose 297 H 291 H Calcium Phosphorus Magnesium Iron TIBC Ferritin Total Bilirubin AST ALT Alkaline Phosphatase Total Creatine Kinase Troponin T C-Reactive Protein Total Protein Albumin Triglycerides HDL Cholesterol Miscellaneous Test Crossmatch 09/02/17 09/02/17 09/02/17 05:31 06:10 11:58 WBC RBC Hgb Hct MCV MCH MCHC RDW Plt Count Lymph % (Auto) [place] % (Auto) [place] # Seg Neutrophils % Seg Neuts % (Manual) Lymphocytes % (Manual) Monocytes % (Manual) Nucleated RBC % Seg Neutrophils # Seg Neutrophils # Man Lymphocytes # (Manual) Monocytes # (Manual) Eosinophils # (Manual) Basophils # (Manual) PT INR POC ABG pH ABG pH POC ABG pCO2 POC ABG pO2 ABG pO2 ABG O2 Saturation ABG Base Excess ABG Hemoglobin Oxyhemoglobin Sodium Potassium Chloride Carbon Dioxide BUN 68 H Creatinine 2.2 H Glucose 369 H POC Glucose 245 H 333 H Calcium 8.2 L Phosphorus Magnesium Iron TIBC Ferritin Total Bilirubin AST ALT Alkaline Phosphatase Total Creatine Kinase Troponin T C-Reactive Protein Total Protein Albumin Triglycerides HDL Cholesterol Miscellaneous Test Crossmatch 09/02/17 09/02/17 09/03/17 15:37 23:50 04:00 WBC RBC Hgb Hct MCV MCH MCHC RDW Plt Count Lymph % (Auto) [place] % (Auto) [place] # Seg Neutrophils % Seg Neuts % (Manual) Lymphocytes % (Manual) Monocytes % (Manual) Nucleated RBC % Seg Neutrophils # Seg Neutrophils # Man Lymphocytes # (Manual) Monocytes # (Manual) Eosinophils # (Manual) Basophils # (Manual) PT INR POC ABG pH ABG pH POC ABG pCO2 POC ABG pO2 ABG pO2 ABG O2 Saturation ABG Base Excess ABG Hemoglobin Oxyhemoglobin Sodium Potassium Chloride Carbon Dioxide BUN 59 H Creatinine 1.9 H Glucose 231 H POC Glucose 314 H 240 H Calcium 8.0 L Phosphorus Magnesium Iron TIBC Ferritin Total Bilirubin AST ALT Alkaline Phosphatase 265 H Total Creatine Kinase Troponin T C-Reactive Protein Total Protein 4.4 L Albumin 1.7 L Triglycerides 180 H HDL Cholesterol Miscellaneous Test Crossmatch 09/03/17 09/03/17 09/03/17 05:00 05:32 11:52 WBC 41.5 H* RBC 2.46 L Hgb 6.9 L Hct 21.3 L MCV MCH MCHC RDW 24.9 H Plt Count Lymph % (Auto) [place] % (Auto) [place] # Seg Neutrophils % Seg Neuts % (Manual) Lymphocytes % (Manual) 3.0 L Monocytes % (Manual) 9.5 H Nucleated RBC % 1.5 H Seg Neutrophils # Seg Neutrophils # Man 28.8 H Lymphocytes # (Manual) Monocytes # (Manual) 3.9 H Eosinophils # (Manual) Basophils # (Manual) PT INR POC ABG pH ABG pH POC ABG pCO2 POC ABG pO2 ABG pO2 ABG O2 Saturation ABG Base Excess ABG Hemoglobin Oxyhemoglobin Sodium Potassium Chloride Carbon Dioxide BUN Creatinine Glucose POC Glucose 188 H 285 H Calcium Phosphorus Magnesium Iron TIBC Ferritin Total Bilirubin AST ALT Alkaline Phosphatase Total Creatine Kinase Troponin T C-Reactive Protein Total Protein Albumin Triglycerides HDL Cholesterol Miscellaneous Test Crossmatch 09/03/17 09/03/17 09/03/17 16:55 17:44 23:56 WBC RBC Hgb Hct MCV MCH MCHC RDW Plt Count Lymph % (Auto) [place] % (Auto) [place] # Seg Neutrophils % Seg Neuts % (Manual) Lymphocytes % (Manual) Monocytes % (Manual) Nucleated RBC % Seg Neutrophils # Seg Neutrophils # Man Lymphocytes # (Manual) Monocytes # (Manual) Eosinophils # (Manual) Basophils # (Manual) PT INR POC ABG pH ABG pH POC ABG pCO2 POC ABG pO2 ABG pO2 ABG O2 Saturation ABG Base Excess ABG Hemoglobin Oxyhemoglobin Sodium Potassium Chloride Carbon Dioxide BUN Creatinine Glucose POC Glucose 217 H 193 H Calcium Phosphorus Magnesium Iron TIBC Ferritin Total Bilirubin AST ALT Alkaline Phosphatase Total Creatine Kinase Troponin T C-Reactive Protein Total Protein Albumin Triglycerides HDL Cholesterol Miscellaneous Test Crossmatch See Detail 09/03/17 09/04/17 09/04/17 Unknown 03:47 04:32 WBC 44.7 H* RBC 3.12 L Hgb 8.7 L Hct 26.7 L MCV MCH MCHC RDW 23.5 H Plt Count Lymph % (Auto) [place] % (Auto) [place] # Seg Neutrophils % Seg Neuts % (Manual) Lymphocytes % (Manual) 4.0 L Monocytes % (Manual) Nucleated RBC % 2.0 H Seg Neutrophils # Seg Neutrophils # Man 30.8 H Lymphocytes # (Manual) Monocytes # (Manual) 2.2 H Eosinophils # (Manual) Basophils # (Manual) PT INR POC ABG pH ABG pH POC ABG pCO2 POC ABG pO2 ABG pO2 133.4 H 135.0 H ABG O2 Saturation ABG Base Excess -2.5 L ABG Hemoglobin 5.8 L 7.9 L Oxyhemoglobin Sodium Potassium Chloride Carbon Dioxide BUN Creatinine Glucose POC Glucose Calcium Phosphorus Magnesium Iron TIBC Ferritin Total Bilirubin AST ALT Alkaline Phosphatase Total Creatine Kinase Troponin T C-Reactive Protein Total Protein Albumin Triglycerides HDL Cholesterol Miscellaneous Test Crossmatch 09/04/17 09/04/17 09/04/17 04:32 05:48 10:43 WBC RBC Hgb Hct MCV MCH MCHC RDW Plt Count Lymph % (Auto) [place] % (Auto) [place] # Seg Neutrophils % Seg Neuts % (Manual) Lymphocytes % (Manual) Monocytes % (Manual) Nucleated RBC % Seg Neutrophils # Seg Neutrophils # Man Lymphocytes # (Manual) Monocytes # (Manual) Eosinophils # (Manual) Basophils # (Manual) PT INR POC ABG pH ABG pH POC ABG pCO2 POC ABG pO2 ABG pO2 ABG O2 Saturation ABG Base Excess ABG Hemoglobin Oxyhemoglobin Sodium 136 L Potassium 5.2 H D Chloride 94.2 L Carbon Dioxide BUN 71 H Creatinine 2.3 H Glucose 235 H POC Glucose 329 H Calcium 8.3 L Phosphorus Magnesium Iron TIBC Ferritin Total Bilirubin AST ALT Alkaline Phosphatase Total Creatine Kinase Troponin T C-Reactive Protein Total Protein Albumin Triglycerides HDL Cholesterol Miscellaneous Test Flexitest 1 H Crossmatch 09/04/17 09/04/17 09/05/17 12:38 17:30 00:15 WBC RBC Hgb Hct MCV MCH MCHC RDW Plt Count Lymph % (Auto) [place] % (Auto) [place] # Seg Neutrophils % Seg Neuts % (Manual) Lymphocytes % (Manual) Monocytes % (Manual) Nucleated RBC % Seg Neutrophils # Seg Neutrophils # Man Lymphocytes # (Manual) Monocytes # (Manual) Eosinophils # (Manual) Basophils # (Manual) PT INR POC ABG pH ABG pH POC ABG pCO2 POC ABG pO2 ABG pO2 ABG O2 Saturation ABG Base Excess ABG Hemoglobin Oxyhemoglobin Sodium Potassium Chloride Carbon Dioxide BUN Creatinine Glucose POC Glucose 444 H 331 H 362 H Calcium Phosphorus Magnesium Iron TIBC Ferritin Total Bilirubin AST ALT Alkaline Phosphatase Total Creatine Kinase Troponin T C-Reactive Protein Total Protein Albumin Triglycerides HDL Cholesterol Miscellaneous Test Crossmatch 09/05/17 09/05/17 09/05/17 03:55 03:55 12:12 WBC 35.3 H RBC 2.87 L Hgb 8.1 L Hct 24.6 L MCV MCH MCHC RDW 23.3 H Plt Count Lymph % (Auto) [place] % (Auto) [place] # Seg Neutrophils % Seg Neuts % (Manual) 89.5 H Lymphocytes % (Manual) 3.0 L Monocytes % (Manual) Nucleated RBC % 2.5 H Seg Neutrophils # Seg Neutrophils # Man 31.6 H Lymphocytes # (Manual) 1.1 L Monocytes # (Manual) Eosinophils # (Manual) Basophils # (Manual) PT INR POC ABG pH ABG pH POC ABG pCO2 POC ABG pO2 ABG pO2 ABG O2 Saturation ABG Base Excess ABG Hemoglobin Oxyhemoglobin Sodium 136 L Potassium Chloride 94.7 L Carbon Dioxide BUN 55 H Creatinine 1.8 H Glucose 193 H POC Glucose 344 H Calcium 8.1 L Phosphorus Magnesium Iron TIBC Ferritin Total Bilirubin AST ALT Alkaline Phosphatase Total Creatine Kinase Troponin T C-Reactive Protein Total Protein Albumin Triglycerides HDL Cholesterol Miscellaneous Test Crossmatch 09/05/17 09/05/17 09/05/17 14:32 15:32 16:41 WBC RBC Hgb Hct MCV MCH MCHC RDW Plt Count Lymph % (Auto) [place] % (Auto) [place] # Seg Neutrophils % Seg Neuts % (Manual) Lymphocytes % (Manual) Monocytes % (Manual) Nucleated RBC % Seg Neutrophils # Seg Neutrophils # Man Lymphocytes # (Manual) Monocytes # (Manual) Eosinophils # (Manual) Basophils # (Manual) PT INR POC ABG pH ABG pH POC ABG pCO2 POC ABG pO2 ABG pO2 ABG O2 Saturation ABG Base Excess ABG Hemoglobin Oxyhemoglobin Sodium Potassium Chloride Carbon Dioxide BUN Creatinine Glucose POC Glucose 265 H 145 H 188 H Calcium Phosphorus Magnesium Iron TIBC Ferritin Total Bilirubin AST ALT Alkaline Phosphatase Total Creatine Kinase Troponin T C-Reactive Protein Total Protein Albumin Triglycerides HDL Cholesterol Miscellaneous Test Crossmatch 09/05/17 09/05/17 09/05/17 17:28 18:38 20:10 WBC RBC Hgb Hct MCV MCH MCHC RDW Plt Count Lymph % (Auto) [place] % (Auto) [place] # Seg Neutrophils % Seg Neuts % (Manual) Lymphocytes % (Manual) Monocytes % (Manual) Nucleated RBC % Seg Neutrophils # Seg Neutrophils # Man Lymphocytes # (Manual) Monocytes # (Manual) Eosinophils # (Manual) Basophils # (Manual) PT INR POC ABG pH ABG pH POC ABG pCO2 POC ABG pO2 ABG pO2 ABG O2 Saturation ABG Base Excess ABG Hemoglobin Oxyhemoglobin Sodium Potassium Chloride Carbon Dioxide BUN Creatinine Glucose POC Glucose 246 H 271 H 165 H Calcium Phosphorus Magnesium Iron TIBC Ferritin Total Bilirubin AST ALT Alkaline Phosphatase Total Creatine Kinase Troponin T C-Reactive Protein Total Protein Albumin Triglycerides HDL Cholesterol Miscellaneous Test Crossmatch 09/05/17 09/05/17 09/06/17 21:06 23:07 00:10 WBC RBC Hgb Hct MCV MCH MCHC RDW Plt Count Lymph % (Auto) [place] % (Auto) [place] # Seg Neutrophils % Seg Neuts % (Manual) Lymphocytes % (Manual) Monocytes % (Manual) Nucleated RBC % Seg Neutrophils # Seg Neutrophils # Man Lymphocytes # (Manual) Monocytes # (Manual) Eosinophils # (Manual) Basophils # (Manual) PT INR POC ABG pH ABG pH POC ABG pCO2 POC ABG pO2 ABG pO2 ABG O2 Saturation ABG Base Excess ABG Hemoglobin Oxyhemoglobin Sodium Potassium Chloride Carbon Dioxide BUN Creatinine Glucose POC Glucose 134 H 135 H 147 H Calcium Phosphorus Magnesium Iron TIBC Ferritin Total Bilirubin AST ALT Alkaline Phosphatase Total Creatine Kinase Troponin T C-Reactive Protein Total Protein Albumin Triglycerides HDL Cholesterol Miscellaneous Test Crossmatch 09/06/17 09/06/17 09/06/17 01:08 02:01 03:08 WBC RBC Hgb Hct MCV MCH MCHC RDW Plt Count Lymph % (Auto) [place] % (Auto) [place] # Seg Neutrophils % Seg Neuts % (Manual) Lymphocytes % (Manual) Monocytes % (Manual) Nucleated RBC % Seg Neutrophils # Seg Neutrophils # Man Lymphocytes # (Manual) Monocytes # (Manual) Eosinophils # (Manual) Basophils # (Manual) PT INR POC ABG pH ABG pH POC ABG pCO2 POC ABG pO2 ABG pO2 ABG O2 Saturation ABG Base Excess ABG Hemoglobin Oxyhemoglobin Sodium Potassium Chloride Carbon Dioxide BUN Creatinine Glucose POC Glucose 133 H 146 H 135 H Calcium Phosphorus Magnesium Iron TIBC Ferritin Total Bilirubin AST ALT Alkaline Phosphatase Total Creatine Kinase Troponin T C-Reactive Protein Total Protein Albumin Triglycerides HDL Cholesterol Miscellaneous Test Crossmatch 09/06/17 09/06/17 09/06/17 05:30 05:30 05:30 WBC 38.6 H RBC 2.95 L Hgb 8.3 L Hct 25.3 L MCV MCH MCHC RDW 22.2 H Plt Count Lymph % (Auto) [place] % (Auto) [place] # Seg Neutrophils % Seg Neuts % (Manual) Lymphocytes % (Manual) 2.0 L Monocytes % (Manual) Nucleated RBC % 5.0 H Seg Neutrophils # Seg Neutrophils # Man 25.9 H Lymphocytes # (Manual) 0.8 L Monocytes # (Manual) 1.9 H Eosinophils # (Manual) Basophils # (Manual) PT INR POC ABG pH ABG pH POC ABG pCO2 POC ABG pO2 ABG pO2 ABG O2 Saturation ABG Base Excess ABG Hemoglobin Oxyhemoglobin Sodium 135 L Potassium Chloride 93.5 L Carbon Dioxide BUN 82 H Creatinine 2.3 H Glucose 148 H POC Glucose Calcium Phosphorus Magnesium Iron TIBC Ferritin Total Bilirubin AST ALT Alkaline Phosphatase Total Creatine Kinase Troponin T C-Reactive Protein 2.80 H Total Protein Albumin Triglycerides HDL Cholesterol Miscellaneous Test Crossmatch 09/06/17 09/06/17 09/06/17 05:48 08:04 09:06 WBC RBC Hgb Hct MCV MCH MCHC RDW Plt Count Lymph % (Auto) [place] % (Auto) [place] # Seg Neutrophils % Seg Neuts % (Manual) Lymphocytes % (Manual) Monocytes % (Manual) Nucleated RBC % Seg Neutrophils # Seg Neutrophils # Man Lymphocytes # (Manual) Monocytes # (Manual) Eosinophils # (Manual) Basophils # (Manual) PT INR POC ABG pH ABG pH POC ABG pCO2 POC ABG pO2 ABG pO2 ABG O2 Saturation ABG Base Excess ABG Hemoglobin Oxyhemoglobin Sodium Potassium Chloride Carbon Dioxide BUN Creatinine Glucose POC Glucose 152 H 164 H 172 H Calcium Phosphorus Magnesium Iron TIBC Ferritin Total Bilirubin AST ALT Alkaline Phosphatase Total Creatine Kinase Troponin T C-Reactive Protein Total Protein Albumin Triglycerides HDL Cholesterol Miscellaneous Test Crossmatch 09/06/17 09/06/17 09/06/17 09:57 10:19 10:57 WBC RBC Hgb Hct MCV MCH MCHC RDW Plt Count Lymph % (Auto) [place] % (Auto) [place] # Seg Neutrophils % Seg Neuts % (Manual) Lymphocytes % (Manual) Monocytes % (Manual) Nucleated RBC % Seg Neutrophils # Seg Neutrophils # Man Lymphocytes # (Manual) Monocytes # (Manual) Eosinophils # (Manual) Basophils # (Manual) PT INR POC ABG pH ABG pH POC ABG pCO2 POC ABG pO2 ABG pO2 ABG O2 Saturation ABG Base Excess ABG Hemoglobin Oxyhemoglobin Sodium Potassium Chloride Carbon Dioxide BUN Creatinine Glucose POC Glucose 186 H 162 H Calcium Phosphorus Magnesium Iron TIBC Ferritin Total Bilirubin AST ALT Alkaline Phosphatase Total Creatine Kinase Troponin T C-Reactive Protein Total Protein Albumin Triglycerides HDL Cholesterol Miscellaneous Test Flexitest 1 H Crossmatch 09/06/17 09/06/17 09/06/17 13:12 13:40 17:36 WBC RBC Hgb 8.9 L Hct 28.5 L MCV MCH MCHC RDW Plt Count Lymph % (Auto) [place] % (Auto) [place] # Seg Neutrophils % Seg Neuts % (Manual) Lymphocytes % (Manual) Monocytes % (Manual) Nucleated RBC % Seg Neutrophils # Seg Neutrophils # Man Lymphocytes # (Manual) Monocytes # (Manual) Eosinophils # (Manual) Basophils # (Manual) PT INR POC ABG pH ABG pH POC ABG pCO2 POC ABG pO2 ABG pO2 ABG O2 Saturation ABG Base Excess ABG Hemoglobin Oxyhemoglobin Sodium Potassium Chloride Carbon Dioxide BUN Creatinine Glucose POC Glucose 166 H 161 H Calcium Phosphorus Magnesium Iron TIBC Ferritin Total Bilirubin AST ALT Alkaline Phosphatase Total Creatine Kinase Troponin T C-Reactive Protein Total Protein Albumin Triglycerides HDL Cholesterol Miscellaneous Test Crossmatch 09/07/17 09/07/17 09/07/17 00:13 03:50 03:50 WBC 47.0 H* RBC 2.81 L Hgb 8.1 L Hct 24.1 L MCV MCH MCHC RDW 22.5 H Plt Count Lymph % (Auto) [place] % (Auto) [place] # Seg Neutrophils % Seg Neuts % (Manual) Lymphocytes % (Manual) 9.0 L Monocytes % (Manual) Nucleated RBC % 6.0 H Seg Neutrophils # Seg Neutrophils # Man 27.3 H Lymphocytes # (Manual) Monocytes # (Manual) 0.9 H Eosinophils # (Manual) 1.9 H Basophils # (Manual) PT INR POC ABG pH ABG pH POC ABG pCO2 POC ABG pO2 ABG pO2 ABG O2 Saturation ABG Base Excess ABG Hemoglobin Oxyhemoglobin Sodium 136 L Potassium Chloride 96.3 L Carbon Dioxide BUN 61 H Creatinine 1.7 H Glucose 132 H POC Glucose 183 H Calcium 7.8 L Phosphorus Magnesium Iron TIBC Ferritin Total Bilirubin AST ALT Alkaline Phosphatase Total Creatine Kinase Troponin T C-Reactive Protein Total Protein Albumin Triglycerides HDL Cholesterol Miscellaneous Test Crossmatch 09/07/17 09/07/17 09/07/17 05:12 05:23 11:48 WBC RBC Hgb Hct MCV MCH MCHC RDW Plt Count Lymph % (Auto) [place] % (Auto) [place] # Seg Neutrophils % Seg Neuts % (Manual) Lymphocytes % (Manual) Monocytes % (Manual) Nucleated RBC % Seg Neutrophils # Seg Neutrophils # Man Lymphocytes # (Manual) Monocytes # (Manual) Eosinophils # (Manual) Basophils # (Manual) PT INR POC ABG pH ABG pH POC ABG pCO2 POC ABG pO2 ABG pO2 ABG O2 Saturation ABG Base Excess ABG Hemoglobin 7.7 L Oxyhemoglobin 94.8 L Sodium Potassium Chloride Carbon Dioxide BUN Creatinine Glucose POC Glucose 162 H 200 H Calcium Phosphorus Magnesium Iron TIBC Ferritin Total Bilirubin AST ALT Alkaline Phosphatase Total Creatine Kinase Troponin T C-Reactive Protein Total Protein Albumin Triglycerides HDL Cholesterol Miscellaneous Test Crossmatch 09/07/17 09/07/17 09/08/17 17:07 18:21 00:06 WBC RBC Hgb Hct MCV MCH MCHC RDW Plt Count Lymph % (Auto) [place] % (Auto) [place] # Seg Neutrophils % Seg Neuts % (Manual) Lymphocytes % (Manual) Monocytes % (Manual) Nucleated RBC % Seg Neutrophils # Seg Neutrophils # Man Lymphocytes # (Manual) Monocytes # (Manual) Eosinophils # (Manual) Basophils # (Manual) PT INR POC ABG pH ABG pH POC ABG pCO2 POC ABG pO2 ABG pO2 ABG O2 Saturation ABG Base Excess ABG Hemoglobin Oxyhemoglobin Sodium Potassium Chloride Carbon Dioxide BUN Creatinine Glucose POC Glucose 181 H 168 H Calcium Phosphorus Magnesium Iron TIBC Ferritin Total Bilirubin AST ALT Alkaline Phosphatase Total Creatine Kinase Troponin T C-Reactive Protein Total Protein Albumin Triglycerides HDL Cholesterol Miscellaneous Test Crossmatch See Detail 09/08/17 09/08/17 09/08/17 04:05 04:05 04:41 WBC 49.7 H* RBC 2.58 L Hgb 7.3 L Hct 22.7 L MCV MCH MCHC RDW 22.5 H Plt Count Lymph % (Auto) [place] % (Auto) [place] # Seg Neutrophils % Seg Neuts % (Manual) 90.5 H Lymphocytes % (Manual) 1.5 L Monocytes % (Manual) Nucleated RBC % Seg Neutrophils # Seg Neutrophils # Man 45.0 H Lymphocytes # (Manual) 0.7 L Monocytes # (Manual) 1.7 H Eosinophils # (Manual) Basophils # (Manual) PT INR POC ABG pH ABG pH POC ABG pCO2 POC ABG pO2 ABG pO2 ABG O2 Saturation ABG Base Excess ABG Hemoglobin Oxyhemoglobin Sodium 132 L Potassium Chloride 92.1 L Carbon Dioxide BUN 82 H Creatinine 2.2 H Glucose 162 H POC Glucose 235 H Calcium 8.3 L Phosphorus 5.20 H D Magnesium Iron TIBC Ferritin Total Bilirubin AST ALT Alkaline Phosphatase 199 H Total Creatine Kinase Troponin T C-Reactive Protein Total Protein 4.5 L Albumin 1.7 L Triglycerides HDL Cholesterol Miscellaneous Test Crossmatch 09/08/17 09/08/17 09/08/17 09:21 11:52 17:38 WBC RBC Hgb Hct MCV MCH MCHC RDW Plt Count Lymph % (Auto) [place] % (Auto) [place] # Seg Neutrophils % Seg Neuts % (Manual) Lymphocytes % (Manual) Monocytes % (Manual) Nucleated RBC % Seg Neutrophils # Seg Neutrophils # Man Lymphocytes # (Manual) Monocytes # (Manual) Eosinophils # (Manual) Basophils # (Manual) PT INR POC ABG pH ABG pH POC ABG pCO2 POC ABG pO2 ABG pO2 218.5 H ABG O2 Saturation 99.3 H ABG Base Excess -3.5 L ABG Hemoglobin 7.7 L Oxyhemoglobin Sodium Potassium Chloride Carbon Dioxide BUN Creatinine Glucose POC Glucose 220 H 194 H Calcium Phosphorus Magnesium Iron TIBC Ferritin Total Bilirubin AST ALT Alkaline Phosphatase Total Creatine Kinase Troponin T C-Reactive Protein Total Protein Albumin Triglycerides HDL Cholesterol Miscellaneous Test Crossmatch 09/09/17 09/09/17 09/09/17 00:24 03:37 03:37 WBC 33.5 H RBC 2.36 L Hgb 6.7 L Hct 20.9 L MCV MCH MCHC RDW 22.7 H Plt Count Lymph % (Auto) [place] % (Auto) [place] # Seg Neutrophils % Seg Neuts % (Manual) Lymphocytes % (Manual) Monocytes % (Manual) Nucleated RBC % Seg Neutrophils # Seg Neutrophils # Man Lymphocytes # (Manual) Monocytes # (Manual) Eosinophils # (Manual) Basophils # (Manual) PT INR POC ABG pH ABG pH POC ABG pCO2 POC ABG pO2 ABG pO2 ABG O2 Saturation ABG Base Excess ABG Hemoglobin Oxyhemoglobin Sodium 132 L Potassium Chloride 91.6 L Carbon Dioxide 21 L BUN 101 H Creatinine 2.6 H Glucose 156 H POC Glucose 182 H Calcium 8.3 L Phosphorus 5.90 H Magnesium 2.60 H Iron TIBC Ferritin Total Bilirubin AST ALT Alkaline Phosphatase Total Creatine Kinase Troponin T C-Reactive Protein Total Protein Albumin Triglycerides HDL Cholesterol Miscellaneous Test Crossmatch 09/09/17 09/09/17 09/09/17 05:29 12:03 18:05 WBC RBC Hgb Hct MCV MCH MCHC RDW Plt Count Lymph % (Auto) [place] % (Auto) [place] # Seg Neutrophils % Seg Neuts % (Manual) Lymphocytes % (Manual) Monocytes % (Manual) Nucleated RBC % Seg Neutrophils # Seg Neutrophils # Man Lymphocytes # (Manual) Monocytes # (Manual) Eosinophils # (Manual) Basophils # (Manual) PT INR POC ABG pH ABG pH POC ABG pCO2 POC ABG pO2 ABG pO2 ABG O2 Saturation ABG Base Excess ABG Hemoglobin Oxyhemoglobin Sodium Potassium Chloride Carbon Dioxide BUN Creatinine Glucose POC Glucose 168 H 143 H 173 H Calcium Phosphorus Magnesium Iron TIBC Ferritin Total Bilirubin AST ALT Alkaline Phosphatase Total Creatine Kinase Troponin T C-Reactive Protein Total Protein Albumin Triglycerides HDL Cholesterol Miscellaneous Test Crossmatch 09/09/17 09/09/17 09/10/17 23:30 Unknown 05:04 WBC RBC Hgb Hct MCV MCH MCHC RDW Plt Count Lymph % (Auto) [place] % (Auto) [place] # Seg Neutrophils % Seg Neuts % (Manual) Lymphocytes % (Manual) Monocytes % (Manual) Nucleated RBC % Seg Neutrophils # Seg Neutrophils # Man Lymphocytes # (Manual) Monocytes # (Manual) Eosinophils # (Manual) Basophils # (Manual) PT INR POC ABG pH ABG pH 7.323 L POC ABG pCO2 POC ABG pO2 ABG pO2 94.1 H ABG O2 Saturation ABG Base Excess -4.8 L ABG Hemoglobin 8.0 L Oxyhemoglobin 94.9 L Sodium Potassium Chloride Carbon Dioxide BUN Creatinine Glucose POC Glucose 212 H 155 H Calcium Phosphorus Magnesium Iron TIBC Ferritin Total Bilirubin AST ALT Alkaline Phosphatase Total Creatine Kinase Troponin T C-Reactive Protein Total Protein Albumin Triglycerides HDL Cholesterol Miscellaneous Test Crossmatch 09/10/17 09/10/17 09/10/17 07:00 09:55 12:22 WBC 24.7 H RBC 2.62 L Hgb 7.5 L Hct 22.5 L MCV MCH MCHC RDW 20.8 H Plt Count Lymph % (Auto) [place] % (Auto) [place] # Seg Neutrophils % Seg Neuts % (Manual) Lymphocytes % (Manual) Monocytes % (Manual) Nucleated RBC % Seg Neutrophils # Seg Neutrophils # Man Lymphocytes # (Manual) Monocytes # (Manual) Eosinophils # (Manual) Basophils # (Manual) PT INR POC ABG pH ABG pH POC ABG pCO2 POC ABG pO2 ABG pO2 ABG O2 Saturation ABG Base Excess ABG Hemoglobin Oxyhemoglobin Sodium Potassium Chloride 97.9 L Carbon Dioxide BUN 78 H Creatinine 2.0 H Glucose 126 H POC Glucose 183 H Calcium 8.2 L Phosphorus Magnesium Iron TIBC Ferritin Total Bilirubin AST ALT Alkaline Phosphatase Total Creatine Kinase Troponin T C-Reactive Protein Total Protein Albumin Triglycerides HDL Cholesterol Miscellaneous Test Crossmatch 09/11/17 09/11/17 09/11/17 00:08 03:50 05:28 WBC 21.6 H RBC 2.52 L Hgb 7.4 L Hct 22.2 L MCV MCH MCHC RDW 21.5 H Plt Count Lymph % (Auto) [place] % (Auto) [place] # Seg Neutrophils % Seg Neuts % (Manual) 92.0 H Lymphocytes % (Manual) 3.0 L Monocytes % (Manual) Nucleated RBC % Seg Neutrophils # Seg Neutrophils # Man 19.9 H Lymphocytes # (Manual) 0.6 L Monocytes # (Manual) Eosinophils # (Manual) Basophils # (Manual) PT INR POC ABG pH ABG pH POC ABG pCO2 POC ABG pO2 ABG pO2 ABG O2 Saturation ABG Base Excess ABG Hemoglobin Oxyhemoglobin Sodium Potassium Chloride Carbon Dioxide BUN Creatinine Glucose POC Glucose 213 H 181 H Calcium Phosphorus Magnesium Iron TIBC Ferritin Total Bilirubin AST ALT Alkaline Phosphatase Total Creatine Kinase Troponin T C-Reactive Protein Total Protein Albumin Triglycerides HDL Cholesterol Miscellaneous Test Crossmatch 09/11/17 09/11/17 09/11/17 11:55 17:56 23:12 WBC RBC Hgb Hct MCV MCH MCHC RDW Plt Count Lymph % (Auto) [place] % (Auto) [place] # Seg Neutrophils % Seg Neuts % (Manual) Lymphocytes % (Manual) Monocytes % (Manual) Nucleated RBC % Seg Neutrophils # Seg Neutrophils # Man Lymphocytes # (Manual) Monocytes # (Manual) Eosinophils # (Manual) Basophils # (Manual) PT INR POC ABG pH ABG pH POC ABG pCO2 POC ABG pO2 ABG pO2 ABG O2 Saturation ABG Base Excess ABG Hemoglobin Oxyhemoglobin Sodium Potassium Chloride Carbon Dioxide 21 L BUN 80 H Creatinine 2.1 H Glucose 170 H POC Glucose 277 H 206 H Calcium 8.0 L Phosphorus Magnesium Iron TIBC Ferritin Total Bilirubin AST ALT Alkaline Phosphatase Total Creatine Kinase Troponin T C-Reactive Protein Total Protein Albumin Triglycerides HDL Cholesterol Miscellaneous Test Crossmatch 09/11/17 09/12/17 09/12/17 23:36 05:25 05:25 WBC 17.4 H RBC 2.29 L Hgb 6.7 L Hct 20.4 L MCV MCH MCHC RDW 21.2 H Plt Count Lymph % (Auto) [place] % (Auto) [place] # Seg Neutrophils % Seg Neuts % (Manual) 79.0 H Lymphocytes % (Manual) 5.0 L Monocytes % (Manual) Nucleated RBC % 1.0 H Seg Neutrophils # Seg Neutrophils # Man 13.7 H Lymphocytes # (Manual) 0.9 L Monocytes # (Manual) 1.2 H Eosinophils # (Manual) Basophils # (Manual) PT INR POC ABG pH ABG pH POC ABG pCO2 POC ABG pO2 ABG pO2 ABG O2 Saturation ABG Base Excess ABG Hemoglobin Oxyhemoglobin Sodium Potassium Chloride Carbon Dioxide BUN Creatinine Glucose POC Glucose 190 H Calcium Phosphorus Magnesium Iron 22 L TIBC 81 L Ferritin Total Bilirubin AST ALT Alkaline Phosphatase Total Creatine Kinase Troponin T C-Reactive Protein Total Protein Albumin Triglycerides HDL Cholesterol Miscellaneous Test Crossmatch 09/12/17 09/12/17 09/12/17 05:25 05:36 09:14 WBC RBC Hgb Hct MCV MCH MCHC RDW Plt Count Lymph % (Auto) [place] % (Auto) [place] # Seg Neutrophils % Seg Neuts % (Manual) Lymphocytes % (Manual) Monocytes % (Manual) Nucleated RBC % Seg Neutrophils # Seg Neutrophils # Man Lymphocytes # (Manual) Monocytes # (Manual) Eosinophils # (Manual) Basophils # (Manual) PT INR POC ABG pH ABG pH POC ABG pCO2 POC ABG pO2 ABG pO2 ABG O2 Saturation ABG Base Excess ABG Hemoglobin Oxyhemoglobin Sodium Potassium Chloride Carbon Dioxide BUN Creatinine Glucose POC Glucose 141 H Calcium Phosphorus Magnesium Iron TIBC Ferritin > 2000.0 H Total Bilirubin AST ALT Alkaline Phosphatase Total Creatine Kinase Troponin T C-Reactive Protein Total Protein Albumin Triglycerides HDL Cholesterol Miscellaneous Test Crossmatch See Detail 09/12/17 09/12/17 09/12/17 11:18 15:22 17:18 WBC RBC Hgb 8.5 L Hct 25.4 L MCV MCH MCHC RDW Plt Count Lymph % (Auto) [place] % (Auto) [place] # Seg Neutrophils % Seg Neuts % (Manual) Lymphocytes % (Manual) Monocytes % (Manual) Nucleated RBC % Seg Neutrophils # Seg Neutrophils # Man Lymphocytes # (Manual) Monocytes # (Manual) Eosinophils # (Manual) Basophils # (Manual) PT INR POC ABG pH ABG pH POC ABG pCO2 POC ABG pO2 ABG pO2 ABG O2 Saturation ABG Base Excess ABG Hemoglobin Oxyhemoglobin Sodium Potassium Chloride Carbon Dioxide BUN Creatinine Glucose POC Glucose 262 H 193 H Calcium Phosphorus Magnesium Iron TIBC Ferritin Total Bilirubin AST ALT Alkaline Phosphatase Total Creatine Kinase Troponin T C-Reactive Protein Total Protein Albumin Triglycerides HDL Cholesterol Miscellaneous Test Crossmatch 09/13/17 09/13/17 09/13/17 00:05 06:25 11:36 WBC RBC Hgb Hct MCV MCH MCHC RDW Plt Count Lymph % (Auto) [place] % (Auto) [place] # Seg Neutrophils % Seg Neuts % (Manual) Lymphocytes % (Manual) Monocytes % (Manual) Nucleated RBC % Seg Neutrophils # Seg Neutrophils # Man Lymphocytes # (Manual) Monocytes # (Manual) Eosinophils # (Manual) Basophils # (Manual) PT INR POC ABG pH 7.347 L ABG pH POC ABG pCO2 34.3 L POC ABG pO2 134 H ABG pO2 ABG O2 Saturation ABG Base Excess ABG Hemoglobin Oxyhemoglobin Sodium Potassium Chloride Carbon Dioxide BUN Creatinine Glucose POC Glucose 235 H 286 H Calcium Phosphorus Magnesium Iron TIBC Ferritin Total Bilirubin AST ALT Alkaline Phosphatase Total Creatine Kinase Troponin T C-Reactive Protein Total Protein Albumin Triglycerides HDL Cholesterol Miscellaneous Test Crossmatch 09/13/17 09/13/17 09/13/17 11:56 17:25 23:18 WBC RBC Hgb Hct MCV MCH MCHC RDW Plt Count Lymph % (Auto) [place] % (Auto) [place] # Seg Neutrophils % Seg Neuts % (Manual) Lymphocytes % (Manual) Monocytes % (Manual) Nucleated RBC % Seg Neutrophils # Seg Neutrophils # Man Lymphocytes # (Manual) Monocytes # (Manual) Eosinophils # (Manual) Basophils # (Manual) PT INR POC ABG pH ABG pH POC ABG pCO2 POC ABG pO2 ABG pO2 ABG O2 Saturation ABG Base Excess ABG Hemoglobin Oxyhemoglobin Sodium Potassium Chloride Carbon Dioxide BUN Creatinine Glucose POC Glucose 318 H 278 H 230 H Calcium Phosphorus Magnesium Iron TIBC Ferritin Total Bilirubin AST ALT Alkaline Phosphatase Total Creatine Kinase Troponin T C-Reactive Protein Total Protein Albumin Triglycerides HDL Cholesterol Miscellaneous Test Crossmatch 09/13/17 09/13/17 09/13/17 Unknown Unknown Unknown WBC 15.6 H RBC 2.72 L Hgb 8.1 L Hct 23.9 L MCV MCH MCHC RDW 19.5 H Plt Count 137 L Lymph % (Auto) [place] % (Auto) [place] # Seg Neutrophils % Seg Neuts % (Manual) 73.0 H Lymphocytes % (Manual) 3.0 L Monocytes % (Manual) 19.0 H Nucleated RBC % 2.0 H Seg Neutrophils # Seg Neutrophils # Man 11.4 H Lymphocytes # (Manual) 0.5 L Monocytes # (Manual) 3.0 H Eosinophils # (Manual) Basophils # (Manual) PT INR POC ABG pH ABG pH POC ABG pCO2 POC ABG pO2 ABG pO2 ABG O2 Saturation ABG Base Excess ABG Hemoglobin Oxyhemoglobin Sodium Potassium Chloride Carbon Dioxide 19 L BUN 103 H Creatinine 2.6 H Glucose 173 H POC Glucose Calcium Phosphorus Magnesium Iron TIBC Ferritin Total Bilirubin AST ALT Alkaline Phosphatase Total Creatine Kinase Troponin T C-Reactive Protein Total Protein Albumin < 0.2 L Triglycerides HDL Cholesterol Miscellaneous Test Crossmatch 09/14/17 09/14/17 09/14/17 03:15 03:15 05:16 WBC 12.5 H RBC 2.55 L Hgb 7.6 L Hct 22.5 L MCV MCH MCHC RDW 19.8 H Plt Count 139 L Lymph % (Auto) [place] % (Auto) [place] # Seg Neutrophils % Seg Neuts % (Manual) Lymphocytes % (Manual) Monocytes % (Manual) Nucleated RBC % Seg Neutrophils # Seg Neutrophils # Man Lymphocytes # (Manual) Monocytes # (Manual) Eosinophils # (Manual) Basophils # (Manual) PT INR POC ABG pH ABG pH POC ABG pCO2 POC ABG pO2 ABG pO2 ABG O2 Saturation ABG Base Excess ABG Hemoglobin Oxyhemoglobin Sodium Potassium Chloride Carbon Dioxide BUN 75 H Creatinine 2.1 H Glucose 217 H POC Glucose 283 H Calcium Phosphorus 2.20 L D Magnesium Iron TIBC Ferritin Total Bilirubin AST ALT Alkaline Phosphatase Total Creatine Kinase Troponin T C-Reactive Protein Total Protein Albumin Triglycerides HDL Cholesterol Miscellaneous Test Crossmatch 09/14/17 09/14/17 09/15/17 12:11 17:47 00:03 WBC RBC Hgb Hct MCV MCH MCHC RDW Plt Count Lymph % (Auto) [place] % (Auto) [place] # Seg Neutrophils % Seg Neuts % (Manual) Lymphocytes % (Manual) Monocytes % (Manual) Nucleated RBC % Seg Neutrophils # Seg Neutrophils # Man Lymphocytes # (Manual) Monocytes # (Manual) Eosinophils # (Manual) Basophils # (Manual) PT INR POC ABG pH ABG pH POC ABG pCO2 POC ABG pO2 ABG pO2 ABG O2 Saturation ABG Base Excess ABG Hemoglobin Oxyhemoglobin Sodium Potassium Chloride Carbon Dioxide BUN Creatinine Glucose POC Glucose 251 H 289 H 229 H Calcium Phosphorus Magnesium Iron TIBC Ferritin Total Bilirubin AST ALT Alkaline Phosphatase Total Creatine Kinase Troponin T C-Reactive Protein Total Protein Albumin Triglycerides HDL Cholesterol Miscellaneous Test Crossmatch 09/15/17 09/15/17 09/15/17 05:00 05:00 05:30 WBC 11.7 H RBC 2.50 L Hgb 7.4 L Hct 22.7 L MCV MCH MCHC RDW 20.5 H Plt Count Lymph % (Auto) [place] % (Auto) [place] # Seg Neutrophils % Seg Neuts % (Manual) Lymphocytes % (Manual) 11.0 L Monocytes % (Manual) 11.0 H Nucleated RBC % Seg Neutrophils # Seg Neutrophils # Man Lymphocytes # (Manual) Monocytes # (Manual) 1.3 H Eosinophils # (Manual) Basophils # (Manual) PT INR POC ABG pH ABG pH POC ABG pCO2 POC ABG pO2 ABG pO2 ABG O2 Saturation ABG Base Excess ABG Hemoglobin Oxyhemoglobin Sodium Potassium Chloride 97.0 L Carbon Dioxide 21 L BUN 94 H Creatinine 2.4 H Glucose 194 H POC Glucose 225 H Calcium Phosphorus Magnesium Iron TIBC Ferritin Total Bilirubin AST ALT Alkaline Phosphatase Total Creatine Kinase Troponin T C-Reactive Protein Total Protein Albumin Triglycerides HDL Cholesterol Miscellaneous Test Crossmatch 09/15/17 09/15/17 09/15/17 07:48 11:38 12:45 WBC RBC 1.93 L Hgb 5.7 L* Hct 17.1 L* MCV MCH MCHC RDW 20.2 H Plt Count 125 L Lymph % (Auto) [place] % (Auto) [place] # Seg Neutrophils % Seg Neuts % (Manual) 79.0 H Lymphocytes % (Manual) 8.0 L Monocytes % (Manual) Nucleated RBC % Seg Neutrophils # Seg Neutrophils # Man Lymphocytes # (Manual) 0.8 L Monocytes # (Manual) Eosinophils # (Manual) Basophils # (Manual) PT INR POC ABG pH ABG pH POC ABG pCO2 POC ABG pO2 ABG pO2 ABG O2 Saturation ABG Base Excess ABG Hemoglobin Oxyhemoglobin Sodium Potassium Chloride Carbon Dioxide BUN Creatinine Glucose POC Glucose 245 H 253 H Calcium Phosphorus Magnesium Iron TIBC Ferritin Total Bilirubin AST ALT Alkaline Phosphatase Total Creatine Kinase Troponin T C-Reactive Protein Total Protein Albumin Triglycerides HDL Cholesterol Miscellaneous Test Crossmatch 09/15/17 09/15/17 09/15/17 12:45 12:45 22:25 WBC 19.6 H RBC 3.32 L Hgb 10.0 L D Hct 29.3 L D MCV MCH MCHC RDW 17.0 H Plt Count 123 L Lymph % (Auto) [place] % (Auto) [place] # Seg Neutrophils % Seg Neuts % (Manual) Lymphocytes % (Manual) 12.0 L Monocytes % (Manual) Nucleated RBC % 5.0 H Seg Neutrophils # Seg Neutrophils # Man 11.0 H Lymphocytes # (Manual) Monocytes # (Manual) 1.2 H Eosinophils # (Manual) Basophils # (Manual) PT 15.4 H INR 1.16 H POC ABG pH ABG pH POC ABG pCO2 POC ABG pO2 ABG pO2 ABG O2 Saturation ABG Base Excess ABG Hemoglobin Oxyhemoglobin Sodium Potassium Chloride Carbon Dioxide BUN Creatinine Glucose POC Glucose Calcium Phosphorus Magnesium Iron TIBC Ferritin Total Bilirubin AST ALT Alkaline Phosphatase Total Creatine Kinase Troponin T C-Reactive Protein Total Protein Albumin Triglycerides HDL Cholesterol Miscellaneous Test Crossmatch See Detail 09/15/17 09/15/17 09/16/17 22:25 23:38 01:26 WBC RBC Hgb Hct MCV MCH MCHC RDW Plt Count Lymph % (Auto) [place] % (Auto) [place] # Seg Neutrophils % Seg Neuts % (Manual) Lymphocytes % (Manual) Monocytes % (Manual) Nucleated RBC % Seg Neutrophils # Seg Neutrophils # Man Lymphocytes # (Manual) Monocytes # (Manual) Eosinophils # (Manual) Basophils # (Manual) PT INR POC ABG pH ABG pH POC ABG pCO2 POC ABG pO2 ABG pO2 ABG O2 Saturation ABG Base Excess ABG Hemoglobin Oxyhemoglobin Sodium Potassium Chloride Carbon Dioxide 17 L BUN 100 H Creatinine 2.6 H Glucose POC Glucose 58 L 132 H Calcium 8.3 L Phosphorus Magnesium 1.60 L Iron TIBC Ferritin Total Bilirubin 2.80 H AST 118 H ALT Alkaline Phosphatase 316 H Total Creatine Kinase Troponin T C-Reactive Protein Total Protein 4.0 L Albumin 1.8 L Triglycerides HDL Cholesterol Miscellaneous Test Crossmatch 09/16/17 09/16/17 09/16/17 05:30 05:30 05:54 WBC 24.6 H RBC 3.22 L Hgb 9.8 L Hct 28.6 L MCV MCH MCHC RDW 17.4 H Plt Count 127 L Lymph % (Auto) [place] % (Auto) [place] # Seg Neutrophils % Seg Neuts % (Manual) Lymphocytes % (Manual) Monocytes % (Manual) Nucleated RBC % Seg Neutrophils # Seg Neutrophils # Man Lymphocytes # (Manual) Monocytes # (Manual) Eosinophils # (Manual) Basophils # (Manual) PT INR POC ABG pH ABG pH POC ABG pCO2 POC ABG pO2 ABG pO2 ABG O2 Saturation ABG Base Excess ABG Hemoglobin Oxyhemoglobin Sodium Potassium Chloride Carbon Dioxide 18 L BUN 109 H Creatinine 2.5 H Glucose 140 H POC Glucose 154 H Calcium Phosphorus 4.80 H Magnesium Iron TIBC Ferritin Total Bilirubin 2.40 H AST 90 H ALT Alkaline Phosphatase 298 H Total Creatine Kinase 20 L Troponin T C-Reactive Protein Total Protein 4.1 L Albumin 1.8 L Triglycerides HDL Cholesterol Miscellaneous Test Crossmatch 09/16/17 09/16/17 09/16/17 11:49 17:04 23:18 WBC RBC Hgb Hct MCV MCH MCHC RDW Plt Count Lymph % (Auto) [place] % (Auto) [place] # Seg Neutrophils % Seg Neuts % (Manual) Lymphocytes % (Manual) Monocytes % (Manual) Nucleated RBC % Seg Neutrophils # Seg Neutrophils # Man Lymphocytes # (Manual) Monocytes # (Manual) Eosinophils # (Manual) Basophils # (Manual) PT INR POC ABG pH ABG pH POC ABG pCO2 POC ABG pO2 ABG pO2 ABG O2 Saturation ABG Base Excess ABG Hemoglobin Oxyhemoglobin Sodium Potassium Chloride Carbon Dioxide BUN Creatinine Glucose POC Glucose 167 H 156 H 162 H Calcium Phosphorus Magnesium Iron TIBC Ferritin Total Bilirubin AST ALT Alkaline Phosphatase Total Creatine Kinase Troponin T C-Reactive Protein Total Protein Albumin Triglycerides HDL Cholesterol Miscellaneous Test Crossmatch 09/17/17 09/17/17 09/17/17 05:27 06:10 06:10 WBC 34.6 H RBC 2.75 L Hgb 8.4 L Hct 24.8 L MCV MCH MCHC RDW 18.3 H Plt Count Lymph % (Auto) [place] % (Auto) [place] # Seg Neutrophils % Seg Neuts % (Manual) 77.0 H Lymphocytes % (Manual) 5.0 L Monocytes % (Manual) Nucleated RBC % 2.0 H Seg Neutrophils # Seg Neutrophils # Man 26.6 H Lymphocytes # (Manual) Monocytes # (Manual) 2.4 H Eosinophils # (Manual) Basophils # (Manual) PT INR POC ABG pH ABG pH POC ABG pCO2 POC ABG pO2 ABG pO2 ABG O2 Saturation ABG Base Excess ABG Hemoglobin Oxyhemoglobin Sodium Potassium Chloride Carbon Dioxide BUN 82 H Creatinine 2.1 H Glucose 252 H POC Glucose 243 H Calcium 8.3 L Phosphorus Magnesium Iron TIBC Ferritin Total Bilirubin AST ALT Alkaline Phosphatase Total Creatine Kinase Troponin T C-Reactive Protein Total Protein Albumin Triglycerides HDL Cholesterol Miscellaneous Test Crossmatch 09/17/17 09/17/17 09/18/17 11:42 17:12 00:08 WBC RBC Hgb Hct MCV MCH MCHC RDW Plt Count Lymph % (Auto) [place] % (Auto) [place] # Seg Neutrophils % Seg Neuts % (Manual) Lymphocytes % (Manual) Monocytes % (Manual) Nucleated RBC % Seg Neutrophils # Seg Neutrophils # Man Lymphocytes # (Manual) Monocytes # (Manual) Eosinophils # (Manual) Basophils # (Manual) PT INR POC ABG pH ABG pH POC ABG pCO2 POC ABG pO2 ABG pO2 ABG O2 Saturation ABG Base Excess ABG Hemoglobin Oxyhemoglobin Sodium Potassium Chloride Carbon Dioxide BUN Creatinine Glucose POC Glucose 232 H 309 H 275 H Calcium Phosphorus Magnesium Iron TIBC Ferritin Total Bilirubin AST ALT Alkaline Phosphatase Total Creatine Kinase Troponin T C-Reactive Protein Total Protein Albumin Triglycerides HDL Cholesterol Miscellaneous Test Crossmatch 09/18/17 09/18/17 09/18/17 05:10 05:10 05:23 WBC 24.4 H RBC 2.57 L Hgb 7.8 L Hct 23.2 L MCV MCH MCHC RDW 19.5 H Plt Count Lymph % (Auto) [place] % (Auto) [place] # Seg Neutrophils % Seg Neuts % (Manual) 78.0 H Lymphocytes % (Manual) 6.0 L Monocytes % (Manual) Nucleated RBC % 2.0 H Seg Neutrophils # Seg Neutrophils # Man 19.0 H Lymphocytes # (Manual) Monocytes # (Manual) Eosinophils # (Manual) Basophils # (Manual) PT INR POC ABG pH ABG pH POC ABG pCO2 POC ABG pO2 ABG pO2 ABG O2 Saturation ABG Base Excess ABG Hemoglobin Oxyhemoglobin Sodium Potassium Chloride Carbon Dioxide BUN 103 H Creatinine 2.8 H Glucose 173 H POC Glucose 224 H Calcium Phosphorus Magnesium Iron TIBC Ferritin Total Bilirubin AST ALT Alkaline Phosphatase Total Creatine Kinase Troponin T C-Reactive Protein Total Protein Albumin Triglycerides HDL Cholesterol Miscellaneous Test Crossmatch 09/18/17 09/18/17 09/18/17 13:59 18:35 23:19 WBC RBC Hgb Hct MCV MCH MCHC RDW Plt Count Lymph % (Auto) [place] % (Auto) [place] # Seg Neutrophils % Seg Neuts % (Manual) Lymphocytes % (Manual) Monocytes % (Manual) Nucleated RBC % Seg Neutrophils # Seg Neutrophils # Man Lymphocytes # (Manual) Monocytes # (Manual) Eosinophils # (Manual) Basophils # (Manual) PT INR POC ABG pH ABG pH POC ABG pCO2 POC ABG pO2 ABG pO2 ABG O2 Saturation ABG Base Excess ABG Hemoglobin Oxyhemoglobin Sodium Potassium Chloride Carbon Dioxide BUN Creatinine Glucose POC Glucose 268 H 220 H 188 H Calcium Phosphorus Magnesium Iron TIBC Ferritin Total Bilirubin AST ALT Alkaline Phosphatase Total Creatine Kinase Troponin T C-Reactive Protein Total Protein Albumin Triglycerides HDL Cholesterol Miscellaneous Test Crossmatch 09/19/17 09/19/17 09/19/17 05:45 06:00 11:41 WBC 17.6 H RBC 2.57 L Hgb 7.9 L Hct 23.2 L MCV MCH MCHC RDW 19.0 H Plt Count Lymph % (Auto) [place] % (Auto) [place] # Seg Neutrophils % Seg Neuts % (Manual) Lymphocytes % (Manual) 9.0 L Monocytes % (Manual) Nucleated RBC % Seg Neutrophils # Seg Neutrophils # Man 11.4 H Lymphocytes # (Manual) Monocytes # (Manual) 0.9 H Eosinophils # (Manual) Basophils # (Manual) PT INR POC ABG pH ABG pH POC ABG pCO2 POC ABG pO2 ABG pO2 ABG O2 Saturation ABG Base Excess ABG Hemoglobin Oxyhemoglobin Sodium Potassium Chloride Carbon Dioxide BUN Creatinine Glucose POC Glucose 178 H 126 H Calcium Phosphorus Magnesium Iron TIBC Ferritin Total Bilirubin AST ALT Alkaline Phosphatase Total Creatine Kinase Troponin T C-Reactive Protein Total Protein Albumin Triglycerides HDL Cholesterol Miscellaneous Test Crossmatch 09/19/17 09/19/17 09/20/17 17:08 23:46 04:46 WBC RBC Hgb Hct MCV MCH MCHC RDW Plt Count Lymph % (Auto) [place] % (Auto) [place] # Seg Neutrophils % Seg Neuts % (Manual) Lymphocytes % (Manual) Monocytes % (Manual) Nucleated RBC % Seg Neutrophils # Seg Neutrophils # Man Lymphocytes # (Manual) Monocytes # (Manual) Eosinophils # (Manual) Basophils # (Manual) PT INR POC ABG pH ABG pH POC ABG pCO2 POC ABG pO2 ABG pO2 ABG O2 Saturation ABG Base Excess ABG Hemoglobin Oxyhemoglobin Sodium Potassium 5.2 H D Chloride 97.4 L Carbon Dioxide 20 L BUN 98 H Creatinine 2.4 H Glucose 187 H POC Glucose 263 H 161 H Calcium Phosphorus Magnesium Iron TIBC Ferritin Total Bilirubin AST ALT Alkaline Phosphatase Total Creatine Kinase Troponin T C-Reactive Protein Total Protein Albumin Triglycerides HDL Cholesterol Miscellaneous Test Crossmatch 09/20/17 09/20/17 09/20/17 05:38 11:36 11:41 WBC 24.5 H RBC 2.84 L Hgb 8.2 L Hct 26.2 L MCV MCH MCHC RDW 20.0 H Plt Count 470 H Lymph % (Auto) [place] % (Auto) [place] # Seg Neutrophils % Seg Neuts % (Manual) Lymphocytes % (Manual) Monocytes % (Manual) Nucleated RBC % Seg Neutrophils # Seg Neutrophils # Man Lymphocytes # (Manual) Monocytes # (Manual) Eosinophils # (Manual) Basophils # (Manual) PT INR POC ABG pH ABG pH POC ABG pCO2 POC ABG pO2 ABG pO2 ABG O2 Saturation ABG Base Excess ABG Hemoglobin Oxyhemoglobin Sodium Potassium Chloride Carbon Dioxide BUN Creatinine Glucose POC Glucose 215 H 220 H Calcium Phosphorus Magnesium Iron TIBC Ferritin Total Bilirubin AST ALT Alkaline Phosphatase Total Creatine Kinase Troponin T C-Reactive Protein Total Protein Albumin Triglycerides HDL Cholesterol Miscellaneous Test Crossmatch 09/20/17 09/21/17 09/21/17 17:45 00:51 04:00 WBC RBC Hgb Hct MCV MCH MCHC RDW Plt Count Lymph % (Auto) [place] % (Auto) [place] # Seg Neutrophils % Seg Neuts % (Manual) Lymphocytes % (Manual) Monocytes % (Manual) Nucleated RBC % Seg Neutrophils # Seg Neutrophils # Man Lymphocytes # (Manual) Monocytes # (Manual) Eosinophils # (Manual) Basophils # (Manual) PT INR POC ABG pH ABG pH POC ABG pCO2 POC ABG pO2 ABG pO2 ABG O2 Saturation ABG Base Excess ABG Hemoglobin Oxyhemoglobin Sodium Potassium 3.2 L D Chloride 96.4 L Carbon Dioxide BUN 63 H Creatinine 1.8 H Glucose 204 H POC Glucose 122 H 137 H Calcium 8.3 L Phosphorus 2.10 L D Magnesium 1.50 L Iron TIBC Ferritin Total Bilirubin AST ALT Alkaline Phosphatase Total Creatine Kinase Troponin T C-Reactive Protein Total Protein Albumin Triglycerides HDL Cholesterol Miscellaneous Test Crossmatch 09/21/17 09/21/17 09/21/17 05:45 08:30 11:50 WBC 27.5 H RBC 2.52 L Hgb 7.7 L Hct 22.8 L MCV MCH MCHC RDW 19.2 H Plt Count 457 H Lymph % (Auto) [place] % (Auto) [place] # Seg Neutrophils % Seg Neuts % (Manual) Lymphocytes % (Manual) Monocytes % (Manual) Nucleated RBC % Seg Neutrophils # Seg Neutrophils # Man Lymphocytes # (Manual) Monocytes # (Manual) Eosinophils # (Manual) Basophils # (Manual) PT INR POC ABG pH ABG pH POC ABG pCO2 POC ABG pO2 ABG pO2 ABG O2 Saturation ABG Base Excess ABG Hemoglobin Oxyhemoglobin Sodium Potassium Chloride Carbon Dioxide BUN Creatinine Glucose POC Glucose 243 H Calcium Phosphorus Magnesium Iron TIBC Ferritin Total Bilirubin AST ALT Alkaline Phosphatase Total Creatine Kinase Troponin T C-Reactive Protein Total Protein Albumin Triglycerides HDL Cholesterol Miscellaneous Test Crossmatch See Detail 09/21/17 09/21/17 09/22/17 13:03 16:39 00:09 WBC RBC Hgb Hct MCV MCH MCHC RDW Plt Count Lymph % (Auto) [place] % (Auto) [place] # Seg Neutrophils % Seg Neuts % (Manual) Lymphocytes % (Manual) Monocytes % (Manual) Nucleated RBC % Seg Neutrophils # Seg Neutrophils # Man Lymphocytes # (Manual) Monocytes # (Manual) Eosinophils # (Manual) Basophils # (Manual) PT INR POC ABG pH ABG pH POC ABG pCO2 POC ABG pO2 ABG pO2 ABG O2 Saturation ABG Base Excess ABG Hemoglobin Oxyhemoglobin Sodium Potassium Chloride Carbon Dioxide BUN Creatinine Glucose POC Glucose 271 H 160 H 191 H Calcium Phosphorus Magnesium Iron TIBC Ferritin Total Bilirubin AST ALT Alkaline Phosphatase Total Creatine Kinase Troponin T C-Reactive Protein Total Protein Albumin Triglycerides HDL Cholesterol Miscellaneous Test Crossmatch 09/22/17 09/22/17 09/22/17 03:37 05:40 07:35 WBC 29.7 H RBC 2.71 L Hgb 8.1 L Hct 24.1 L MCV MCH MCHC RDW 19.6 H Plt Count 491 H Lymph % (Auto) [place] % (Auto) [place] # Seg Neutrophils % Seg Neuts % (Manual) 70.5 H Lymphocytes % (Manual) 12.5 L Monocytes % (Manual) 10.0 H Nucleated RBC % 2.0 H Seg Neutrophils # Seg Neutrophils # Man 20.9 H Lymphocytes # (Manual) Monocytes # (Manual) 3.0 H Eosinophils # (Manual) Basophils # (Manual) PT INR POC ABG pH ABG pH POC ABG pCO2 POC ABG pO2 ABG pO2 ABG O2 Saturation ABG Base Excess ABG Hemoglobin Oxyhemoglobin Sodium Potassium 3.0 L Chloride 95.9 L Carbon Dioxide BUN 74 H Creatinine 2.1 H Glucose 126 H POC Glucose 150 H Calcium Phosphorus 2.10 L Magnesium 1.40 L Iron TIBC Ferritin Total Bilirubin AST ALT Alkaline Phosphatase 311 H Total Creatine Kinase Troponin T C-Reactive Protein Total Protein 4.4 L Albumin 2.0 L Triglycerides HDL Cholesterol Miscellaneous Test Crossmatch 09/22/17 09/23/17 09/23/17 12:20 05:02 05:02 WBC 37.5 H RBC 2.54 L Hgb 7.3 L Hct 22.9 L MCV MCH MCHC RDW 19.4 H Plt Count 471 H Lymph % (Auto) [place] % (Auto) [place] # Seg Neutrophils % Seg Neuts % (Manual) Lymphocytes % (Manual) 8.0 L Monocytes % (Manual) Nucleated RBC % 1.0 H Seg Neutrophils # Seg Neutrophils # Man 15.0 H Lymphocytes # (Manual) Monocytes # (Manual) 1.9 H Eosinophils # (Manual) Basophils # (Manual) PT INR POC ABG pH ABG pH POC ABG pCO2 POC ABG pO2 ABG pO2 ABG O2 Saturation ABG Base Excess ABG Hemoglobin Oxyhemoglobin Sodium 136 L Potassium 3.0 L Chloride 93.8 L Carbon Dioxide BUN 99 H Creatinine 2.7 H Glucose POC Glucose 106 H Calcium 8.2 L Phosphorus 2.40 L Magnesium Iron TIBC Ferritin Total Bilirubin AST ALT Alkaline Phosphatase Total Creatine Kinase Troponin T C-Reactive Protein Total Protein Albumin Triglycerides HDL Cholesterol Miscellaneous Test Crossmatch 09/23/17 09/23/17 09/23/17 05:39 11:21 18:19 WBC RBC Hgb Hct MCV MCH MCHC RDW Plt Count Lymph % (Auto) [place] % (Auto) [place] # Seg Neutrophils % Seg Neuts % (Manual) Lymphocytes % (Manual) Monocytes % (Manual) Nucleated RBC % Seg Neutrophils # Seg Neutrophils # Man Lymphocytes # (Manual) Monocytes # (Manual) Eosinophils # (Manual) Basophils # (Manual) PT INR POC ABG pH ABG pH POC ABG pCO2 POC ABG pO2 ABG pO2 ABG O2 Saturation ABG Base Excess ABG Hemoglobin Oxyhemoglobin Sodium Potassium Chloride Carbon Dioxide BUN Creatinine Glucose POC Glucose 118 H 130 H 189 H Calcium Phosphorus Magnesium Iron TIBC Ferritin Total Bilirubin AST ALT Alkaline Phosphatase Total Creatine Kinase Troponin T C-Reactive Protein Total Protein Albumin Triglycerides HDL Cholesterol Miscellaneous Test Crossmatch 09/23/17 09/24/17 09/24/17 23:55 04:00 04:00 WBC 37.8 H RBC 2.76 L Hgb 8.1 L Hct 24.8 L MCV MCH MCHC RDW 19.8 H Plt Count 539 H Lymph % (Auto) [place] % (Auto) [place] # Seg Neutrophils % Seg Neuts % (Manual) Lymphocytes % (Manual) 4.0 L Monocytes % (Manual) Nucleated RBC % 6.0 H Seg Neutrophils # Seg Neutrophils # Man 19.3 H Lymphocytes # (Manual) Monocytes # (Manual) 1.5 H Eosinophils # (Manual) Basophils # (Manual) 0.4 H PT INR POC ABG pH ABG pH POC ABG pCO2 POC ABG pO2 ABG pO2 ABG O2 Saturation ABG Base Excess ABG Hemoglobin Oxyhemoglobin Sodium Potassium 3.5 L Chloride 95.2 L Carbon Dioxide BUN 67 H Creatinine 1.9 H Glucose 140 H POC Glucose 120 H Calcium 8.2 L Phosphorus 2.00 L Magnesium Iron TIBC Ferritin Total Bilirubin AST ALT Alkaline Phosphatase Total Creatine Kinase Troponin T C-Reactive Protein Total Protein Albumin Triglycerides HDL Cholesterol Miscellaneous Test Crossmatch 09/24/17 09/24/17 09/24/17 04:00 05:33 12:16 WBC RBC Hgb Hct MCV MCH MCHC RDW Plt Count Lymph % (Auto) [place] % (Auto) [place] # Seg Neutrophils % Seg Neuts % (Manual) Lymphocytes % (Manual) Monocytes % (Manual) Nucleated RBC % Seg Neutrophils # Seg Neutrophils # Man Lymphocytes # (Manual) Monocytes # (Manual) Eosinophils # (Manual) Basophils # (Manual) PT INR POC ABG pH ABG pH POC ABG pCO2 POC ABG pO2 ABG pO2 ABG O2 Saturation ABG Base Excess ABG Hemoglobin Oxyhemoglobin Sodium Potassium Chloride Carbon Dioxide BUN Creatinine Glucose POC Glucose 178 H 262 H Calcium Phosphorus Magnesium Iron TIBC Ferritin Total Bilirubin AST ALT Alkaline Phosphatase Total Creatine Kinase Troponin T C-Reactive Protein Total Protein Albumin Triglycerides HDL Cholesterol Miscellaneous Test Crossmatch See Detail 09/24/17 09/24/17 09/25/17 17:51 23:33 06:03 WBC RBC Hgb Hct MCV MCH MCHC RDW Plt Count Lymph % (Auto) [place] % (Auto) [place] # Seg Neutrophils % Seg Neuts % (Manual) Lymphocytes % (Manual) Monocytes % (Manual) Nucleated RBC % Seg Neutrophils # Seg Neutrophils # Man Lymphocytes # (Manual) Monocytes # (Manual) Eosinophils # (Manual) Basophils # (Manual) PT INR POC ABG pH ABG pH POC ABG pCO2 POC ABG pO2 ABG pO2 ABG O2 Saturation ABG Base Excess ABG Hemoglobin Oxyhemoglobin Sodium Potassium Chloride Carbon Dioxide BUN Creatinine Glucose POC Glucose 166 H 142 H 173 H Calcium Phosphorus Magnesium Iron TIBC Ferritin Total Bilirubin AST ALT Alkaline Phosphatase Total Creatine Kinase Troponin T C-Reactive Protein Total Protein Albumin Triglycerides HDL Cholesterol Miscellaneous Test Crossmatch 09/25/17 09/25/17 09/25/17 07:49 07:49 11:36 WBC 59.6 H* RBC 2.63 L Hgb 7.7 L Hct 26.0 L MCV 99 H MCH MCHC RDW 21.8 H Plt Count Lymph % (Auto) [place] % (Auto) [place] # Seg Neutrophils % Seg Neuts % (Manual) Lymphocytes % (Manual) 2.0 L Monocytes % (Manual) Nucleated RBC % 8.0 H Seg Neutrophils # Seg Neutrophils # Man 41.7 H Lymphocytes # (Manual) Monocytes # (Manual) 1.2 H Eosinophils # (Manual) Basophils # (Manual) PT INR POC ABG pH ABG pH POC ABG pCO2 POC ABG pO2 ABG pO2 ABG O2 Saturation ABG Base Excess ABG Hemoglobin Oxyhemoglobin Sodium Potassium 5.3 H D Chloride 97.7 L Carbon Dioxide 19 L BUN 90 H Creatinine 2.5 H Glucose 181 H POC Glucose 308 H Calcium 8.0 L Phosphorus Magnesium Iron TIBC Ferritin Total Bilirubin AST ALT Alkaline Phosphatase Total Creatine Kinase Troponin T C-Reactive Protein Total Protein Albumin Triglycerides HDL Cholesterol Miscellaneous Test Crossmatch 09/25/17 09/25/17 09/26/17 16:11 23:38 05:25 WBC 61.9 H* RBC 2.30 L Hgb 7.0 L Hct 21.4 L MCV MCH MCHC RDW 21.3 H Plt Count Lymph % (Auto) [place] % (Auto) [place] # Seg Neutrophils % Seg Neuts % (Manual) Lymphocytes % (Manual) 1.0 L Monocytes % (Manual) Nucleated RBC % 7.0 H Seg Neutrophils # Seg Neutrophils # Man 37.1 H Lymphocytes # (Manual) 0.6 L Monocytes # (Manual) 1.9 H Eosinophils # (Manual) Basophils # (Manual) PT INR POC ABG pH ABG pH POC ABG pCO2 POC ABG pO2 ABG pO2 ABG O2 Saturation ABG Base Excess ABG Hemoglobin Oxyhemoglobin Sodium Potassium Chloride Carbon Dioxide BUN Creatinine Glucose POC Glucose 249 H 263 H Calcium Phosphorus Magnesium Iron TIBC Ferritin Total Bilirubin AST ALT Alkaline Phosphatase Total Creatine Kinase Troponin T C-Reactive Protein Total Protein Albumin Triglycerides HDL Cholesterol Miscellaneous Test Crossmatch 09/26/17 09/26/17 09/26/17 05:25 05:32 11:33 WBC RBC Hgb Hct MCV MCH MCHC RDW Plt Count Lymph % (Auto) [place] % (Auto) [place] # Seg Neutrophils % Seg Neuts % (Manual) Lymphocytes % (Manual) Monocytes % (Manual) Nucleated RBC % Seg Neutrophils # Seg Neutrophils # Man Lymphocytes # (Manual) Monocytes # (Manual) Eosinophils # (Manual) Basophils # (Manual) PT INR POC ABG pH ABG pH POC ABG pCO2 POC ABG pO2 ABG pO2 ABG O2 Saturation ABG Base Excess ABG Hemoglobin Oxyhemoglobin Sodium Potassium Chloride Carbon Dioxide 21 L BUN 81 H Creatinine 2.3 H Glucose 178 H POC Glucose 225 H 246 H Calcium 8.1 L Phosphorus Magnesium Iron TIBC Ferritin Total Bilirubin AST ALT Alkaline Phosphatase Total Creatine Kinase Troponin T C-Reactive Protein Total Protein Albumin Triglycerides HDL Cholesterol Miscellaneous Test Crossmatch 09/26/17 09/27/17 09/27/17 17:43 00:11 04:00 WBC 63.0 H* RBC 2.23 L Hgb 6.3 L Hct 20.6 L MCV MCH MCHC RDW 20.6 H Plt Count Lymph % (Auto) [place] % (Auto) [place] # Seg Neutrophils % Seg Neuts % (Manual) Lymphocytes % (Manual) 3.0 L Monocytes % (Manual) Nucleated RBC % 6.0 H Seg Neutrophils # Seg Neutrophils # Man 40.3 H Lymphocytes # (Manual) Monocytes # (Manual) 4.4 H Eosinophils # (Manual) Basophils # (Manual) PT INR POC ABG pH ABG pH POC ABG pCO2 POC ABG pO2 ABG pO2 ABG O2 Saturation ABG Base Excess ABG Hemoglobin Oxyhemoglobin Sodium Potassium Chloride Carbon Dioxide BUN Creatinine Glucose POC Glucose 180 H 194 H Calcium Phosphorus Magnesium Iron TIBC Ferritin Total Bilirubin AST ALT Alkaline Phosphatase Total Creatine Kinase Troponin T C-Reactive Protein Total Protein Albumin Triglycerides HDL Cholesterol Miscellaneous Test Crossmatch 09/27/17 09/27/17 09/27/17 04:00 04:00 05:11 WBC RBC Hgb Hct MCV MCH MCHC RDW Plt Count Lymph % (Auto) [place] % (Auto) [place] # Seg Neutrophils % Seg Neuts % (Manual) Lymphocytes % (Manual) Monocytes % (Manual) Nucleated RBC % Seg Neutrophils # Seg Neutrophils # Man Lymphocytes # (Manual) Monocytes # (Manual) Eosinophils # (Manual) Basophils # (Manual) PT INR POC ABG pH ABG pH POC ABG pCO2 POC ABG pO2 ABG pO2 ABG O2 Saturation ABG Base Excess ABG Hemoglobin Oxyhemoglobin Sodium Potassium Chloride Carbon Dioxide 19 L BUN 102 H Creatinine 2.8 H Glucose 141 H POC Glucose 189 H Calcium 8.1 L Phosphorus Magnesium 2.40 H Iron TIBC Ferritin Total Bilirubin AST ALT Alkaline Phosphatase Total Creatine Kinase Troponin T C-Reactive Protein Total Protein Albumin Triglycerides HDL Cholesterol Miscellaneous Test Crossmatch 09/27/17 09/27/17 09/27/17 08:58 11:54 17:20 WBC RBC Hgb Hct MCV MCH MCHC RDW Plt Count Lymph % (Auto) [place] % (Auto) [place] # Seg Neutrophils % Seg Neuts % (Manual) Lymphocytes % (Manual) Monocytes % (Manual) Nucleated RBC % Seg Neutrophils # Seg Neutrophils # Man Lymphocytes # (Manual) Monocytes # (Manual) Eosinophils # (Manual) Basophils # (Manual) PT INR POC ABG pH ABG pH POC ABG pCO2 POC ABG pO2 ABG pO2 ABG O2 Saturation ABG Base Excess ABG Hemoglobin Oxyhemoglobin Sodium Potassium Chloride Carbon Dioxide BUN Creatinine Glucose POC Glucose 196 H 199 H Calcium Phosphorus Magnesium Iron TIBC Ferritin Total Bilirubin AST ALT Alkaline Phosphatase Total Creatine Kinase Troponin T C-Reactive Protein Total Protein Albumin Triglycerides HDL Cholesterol Miscellaneous Test Crossmatch See Detail 09/28/17 09/28/17 09/28/17 00:11 05:23 12:07 WBC RBC Hgb Hct MCV MCH MCHC RDW Plt Count Lymph % (Auto) [place] % (Auto) [place] # Seg Neutrophils % Seg Neuts % (Manual) Lymphocytes % (Manual) Monocytes % (Manual) Nucleated RBC % Seg Neutrophils # Seg Neutrophils # Man Lymphocytes # (Manual) Monocytes # (Manual) Eosinophils # (Manual) Basophils # (Manual) PT INR POC ABG pH ABG pH POC ABG pCO2 POC ABG pO2 ABG pO2 ABG O2 Saturation ABG Base Excess ABG Hemoglobin Oxyhemoglobin Sodium Potassium Chloride Carbon Dioxide BUN Creatinine Glucose POC Glucose 155 H 237 H 218 H Calcium Phosphorus Magnesium Iron TIBC Ferritin Total Bilirubin AST ALT Alkaline Phosphatase Total Creatine Kinase Troponin T C-Reactive Protein Total Protein Albumin Triglycerides HDL Cholesterol Miscellaneous Test Crossmatch 09/28/17 09/28/17 09/28/17 17:58 Unknown Unknown WBC 39.0 H RBC 3.10 L Hgb 9.6 L D Hct 27.6 L D MCV MCH MCHC 35 H RDW 17.1 H Plt Count Lymph % (Auto) [place] % (Auto) [place] # Seg Neutrophils % Seg Neuts % (Manual) 80.5 H Lymphocytes % (Manual) 0.5 L Monocytes % (Manual) Nucleated RBC % Seg Neutrophils # Seg Neutrophils # Man 31.4 H Lymphocytes # (Manual) 0.2 L Monocytes # (Manual) 2.5 H Eosinophils # (Manual) Basophils # (Manual) PT INR POC ABG pH ABG pH POC ABG pCO2 POC ABG pO2 ABG pO2 ABG O2 Saturation ABG Base Excess ABG Hemoglobin Oxyhemoglobin Sodium Potassium 3.4 L D Chloride Carbon Dioxide BUN 72 H Creatinine 2.0 H Glucose 194 H POC Glucose 108 H Calcium 7.4 L Phosphorus Magnesium Iron TIBC Ferritin Total Bilirubin AST ALT Alkaline Phosphatase Total Creatine Kinase Troponin T C-Reactive Protein Total Protein Albumin Triglycerides HDL Cholesterol Miscellaneous Test Crossmatch 09/29/17 09/29/17 09/29/17 00:12 06:00 06:00 WBC 28.0 H RBC 2.92 L Hgb 8.7 L Hct 26.5 L MCV MCH MCHC RDW 17.1 H Plt Count Lymph % (Auto) [place] % (Auto) [place] # Seg Neutrophils % Seg Neuts % (Manual) 74.5 H Lymphocytes % (Manual) 5.5 L Monocytes % (Manual) 10.5 H Nucleated RBC % Seg Neutrophils # Seg Neutrophils # Man 20.9 H Lymphocytes # (Manual) Monocytes # (Manual) 2.9 H Eosinophils # (Manual) Basophils # (Manual) PT INR POC ABG pH ABG pH POC ABG pCO2 POC ABG pO2 ABG pO2 ABG O2 Saturation ABG Base Excess ABG Hemoglobin Oxyhemoglobin Sodium Potassium Chloride 97.9 L Carbon Dioxide BUN 101 H Creatinine 2.5 H Glucose 177 H POC Glucose 117 H Calcium 7.6 L Phosphorus Magnesium Iron TIBC Ferritin Total Bilirubin AST ALT Alkaline Phosphatase Total Creatine Kinase Troponin T C-Reactive Protein Total Protein Albumin Triglycerides HDL Cholesterol Miscellaneous Test Crossmatch 09/29/17 09/29/17 09/29/17 06:27 11:50 17:27 WBC RBC Hgb Hct MCV MCH MCHC RDW Plt Count Lymph % (Auto) [place] % (Auto) [place] # Seg Neutrophils % Seg Neuts % (Manual) Lymphocytes % (Manual) Monocytes % (Manual) Nucleated RBC % Seg Neutrophils # Seg Neutrophils # Man Lymphocytes # (Manual) Monocytes # (Manual) Eosinophils # (Manual) Basophils # (Manual) PT INR POC ABG pH ABG pH POC ABG pCO2 POC ABG pO2 ABG pO2 ABG O2 Saturation ABG Base Excess ABG Hemoglobin Oxyhemoglobin Sodium Potassium Chloride Carbon Dioxide BUN Creatinine Glucose POC Glucose 183 H 209 H 150 H Calcium Phosphorus Magnesium Iron TIBC Ferritin Total Bilirubin AST ALT Alkaline Phosphatase Total Creatine Kinase Troponin T C-Reactive Protein Total Protein Albumin Triglycerides HDL Cholesterol Miscellaneous Test Crossmatch 09/30/17 09/30/17 09/30/17 05:20 05:20 05:31 WBC 23.0 H RBC 2.64 L Hgb 7.9 L Hct 23.9 L MCV MCH MCHC RDW 18.1 H Plt Count Lymph % (Auto) [place] % (Auto) [place] # Seg Neutrophils % Seg Neuts % (Manual) 29.0 L Lymphocytes % (Manual) Monocytes % (Manual) 11.0 H Nucleated RBC % Seg Neutrophils # Seg Neutrophils # Man Lymphocytes # (Manual) Monocytes # (Manual) 2.5 H Eosinophils # (Manual) Basophils # (Manual) PT INR POC ABG pH ABG pH POC ABG pCO2 POC ABG pO2 ABG pO2 ABG O2 Saturation ABG Base Excess ABG Hemoglobin Oxyhemoglobin Sodium Potassium Chloride 97.0 L Carbon Dioxide 20 L BUN 120 H Creatinine 2.9 H Glucose 126 H POC Glucose 143 H Calcium 8.2 L Phosphorus Magnesium Iron TIBC Ferritin Total Bilirubin AST ALT Alkaline Phosphatase Total Creatine Kinase Troponin T C-Reactive Protein Total Protein Albumin Triglycerides HDL Cholesterol Miscellaneous Test Crossmatch 09/30/17 09/30/17 10/01/17 11:24 23:40 05:45 WBC RBC Hgb Hct MCV MCH MCHC RDW Plt Count Lymph % (Auto) [place] % (Auto) [place] # Seg Neutrophils % Seg Neuts % (Manual) Lymphocytes % (Manual) Monocytes % (Manual) Nucleated RBC % Seg Neutrophils # Seg Neutrophils # Man Lymphocytes # (Manual) Monocytes # (Manual) Eosinophils # (Manual) Basophils # (Manual) PT INR POC ABG pH ABG pH POC ABG pCO2 POC ABG pO2 ABG pO2 ABG O2 Saturation ABG Base Excess ABG Hemoglobin Oxyhemoglobin Sodium Potassium Chloride Carbon Dioxide BUN 83 H Creatinine 2.2 H Glucose 140 H POC Glucose 197 H 121 H Calcium Phosphorus 2.40 L D Magnesium Iron TIBC Ferritin Total Bilirubin AST ALT Alkaline Phosphatase Total Creatine Kinase Troponin T C-Reactive Protein Total Protein Albumin Triglycerides HDL Cholesterol Miscellaneous Test Crossmatch 10/01/17 10/01/17 10/01/17 05:45 05:48 12:29 WBC 23.0 H RBC 2.60 L Hgb 7.8 L Hct 23.8 L MCV MCH MCHC RDW 17.5 H Plt Count Lymph % (Auto) [place] % (Auto) [place] # Seg Neutrophils % Seg Neuts % (Manual) 81.0 H Lymphocytes % (Manual) 2.0 L Monocytes % (Manual) 10.0 H Nucleated RBC % Seg Neutrophils # Seg Neutrophils # Man 18.6 H Lymphocytes # (Manual) 0.5 L Monocytes # (Manual) 2.3 H Eosinophils # (Manual) Basophils # (Manual) PT INR POC ABG pH ABG pH POC ABG pCO2 POC ABG pO2 ABG pO2 ABG O2 Saturation ABG Base Excess ABG Hemoglobin Oxyhemoglobin Sodium Potassium Chloride Carbon Dioxide BUN Creatinine Glucose POC Glucose 123 H 191 H Calcium Phosphorus Magnesium Iron TIBC Ferritin Total Bilirubin AST ALT Alkaline Phosphatase Total Creatine Kinase Troponin T C-Reactive Protein Total Protein Albumin Triglycerides HDL Cholesterol Miscellaneous Test Crossmatch 10/01/17 10/02/17 10/02/17 17:46 05:00 05:27 WBC RBC Hgb Hct MCV MCH MCHC RDW Plt Count Lymph % (Auto) [place] % (Auto) [place] # Seg Neutrophils % Seg Neuts % (Manual) Lymphocytes % (Manual) Monocytes % (Manual) Nucleated RBC % Seg Neutrophils # Seg Neutrophils # Man Lymphocytes # (Manual) Monocytes # (Manual) Eosinophils # (Manual) Basophils # (Manual) PT INR POC ABG pH ABG pH POC ABG pCO2 POC ABG pO2 ABG pO2 ABG O2 Saturation ABG Base Excess ABG Hemoglobin Oxyhemoglobin Sodium Potassium Chloride Carbon Dioxide BUN 108 H Creatinine 2.5 H Glucose 113 H POC Glucose 56 L 120 H Calcium Phosphorus Magnesium Iron TIBC Ferritin Total Bilirubin AST ALT Alkaline Phosphatase Total Creatine Kinase Troponin T C-Reactive Protein Total Protein Albumin Triglycerides HDL Cholesterol Miscellaneous Test Crossmatch 10/02/17 10/02/17 10/02/17 10:05 11:57 19:14 WBC 18.1 H RBC 2.67 L Hgb 8.0 L Hct 24.1 L MCV MCH MCHC RDW 17.1 H Plt Count Lymph % (Auto) [place] % (Auto) [place] # Seg Neutrophils % Seg Neuts % (Manual) Lymphocytes % (Manual) 5.0 L Monocytes % (Manual) 17.0 H Nucleated RBC % Seg Neutrophils # Seg Neutrophils # Man 12.5 H Lymphocytes # (Manual) 0.9 L Monocytes # (Manual) 3.1 H Eosinophils # (Manual) Basophils # (Manual) PT INR POC ABG pH ABG pH POC ABG pCO2 POC ABG pO2 ABG pO2 ABG O2 Saturation ABG Base Excess ABG Hemoglobin Oxyhemoglobin Sodium Potassium Chloride Carbon Dioxide BUN Creatinine Glucose POC Glucose 162 H 189 H Calcium Phosphorus Magnesium Iron TIBC Ferritin Total Bilirubin AST ALT Alkaline Phosphatase Total Creatine Kinase Troponin T C-Reactive Protein Total Protein Albumin Triglycerides HDL Cholesterol Miscellaneous Test Crossmatch 10/02/17 10/03/17 10/03/17 23:50 04:00 06:14 WBC 16.2 H RBC 2.76 L Hgb 8.0 L Hct 24.9 L MCV MCH MCHC RDW 17.1 H Plt Count Lymph % (Auto) [place] % (Auto) [place] # Seg Neutrophils % Seg Neuts % (Manual) 71.0 H Lymphocytes % (Manual) 9.0 L Monocytes % (Manual) 17.0 H Nucleated RBC % Seg Neutrophils # Seg Neutrophils # Man 11.5 H Lymphocytes # (Manual) Monocytes # (Manual) 2.8 H Eosinophils # (Manual) Basophils # (Manual) PT INR POC ABG pH ABG pH POC ABG pCO2 POC ABG pO2 ABG pO2 ABG O2 Saturation ABG Base Excess ABG Hemoglobin Oxyhemoglobin Sodium Potassium Chloride Carbon Dioxide BUN Creatinine Glucose POC Glucose 159 H 162 H Calcium Phosphorus Magnesium Iron TIBC Ferritin Total Bilirubin AST ALT Alkaline Phosphatase Total Creatine Kinase Troponin T C-Reactive Protein Total Protein Albumin Triglycerides HDL Cholesterol Miscellaneous Test Crossmatch 10/03/17 10/03/17 10/03/17 10:05 12:03 17:10 WBC RBC Hgb Hct MCV MCH MCHC RDW Plt Count Lymph % (Auto) [place] % (Auto) [place] # Seg Neutrophils % Seg Neuts % (Manual) Lymphocytes % (Manual) Monocytes % (Manual) Nucleated RBC % Seg Neutrophils # Seg Neutrophils # Man Lymphocytes # (Manual) Monocytes # (Manual) Eosinophils # (Manual) Basophils # (Manual) PT INR POC ABG pH ABG pH POC ABG pCO2 POC ABG pO2 ABG pO2 ABG O2 Saturation ABG Base Excess ABG Hemoglobin Oxyhemoglobin Sodium Potassium Chloride Carbon Dioxide BUN Creatinine Glucose POC Glucose 148 H 168 H 42 L Calcium Phosphorus Magnesium Iron TIBC Ferritin Total Bilirubin AST ALT Alkaline Phosphatase Total Creatine Kinase Troponin T C-Reactive Protein Total Protein Albumin Triglycerides HDL Cholesterol Miscellaneous Test Crossmatch 10/03/17 10/04/17 10/04/17 23:35 00:40 04:47 WBC RBC Hgb Hct MCV MCH MCHC RDW Plt Count Lymph % (Auto) [place] % (Auto) [place] # Seg Neutrophils % Seg Neuts % (Manual) Lymphocytes % (Manual) Monocytes % (Manual) Nucleated RBC % Seg Neutrophils # Seg Neutrophils # Man Lymphocytes # (Manual) Monocytes # (Manual) Eosinophils # (Manual) Basophils # (Manual) PT INR POC ABG pH ABG pH POC ABG pCO2 POC ABG pO2 ABG pO2 ABG O2 Saturation ABG Base Excess ABG Hemoglobin Oxyhemoglobin Sodium Potassium Chloride 96.3 L Carbon Dioxide BUN 92 H Creatinine 2.4 H Glucose 111 H POC Glucose 50 L 113 H Calcium 8.3 L Phosphorus Magnesium 1.50 L Iron TIBC Ferritin Total Bilirubin AST ALT Alkaline Phosphatase Total Creatine Kinase Troponin T C-Reactive Protein Total Protein Albumin Triglycerides HDL Cholesterol Miscellaneous Test Crossmatch 10/04/17 10/04/17 10/04/17 04:47 05:19 09:53 WBC 18.9 H RBC 2.58 L Hgb 7.8 L Hct 23.1 L MCV MCH MCHC RDW 17.2 H Plt Count Lymph % (Auto) [place] % (Auto) [place] # Seg Neutrophils % Seg Neuts % (Manual) Lymphocytes % (Manual) 11.0 L Monocytes % (Manual) 22.0 H Nucleated RBC % Seg Neutrophils # Seg Neutrophils # Man 10.4 H Lymphocytes # (Manual) Monocytes # (Manual) 4.2 H Eosinophils # (Manual) Basophils # (Manual) PT INR POC ABG pH ABG pH POC ABG pCO2 POC ABG pO2 ABG pO2 ABG O2 Saturation ABG Base Excess ABG Hemoglobin Oxyhemoglobin Sodium Potassium Chloride Carbon Dioxide BUN Creatinine Glucose POC Glucose 109 H 185 H Calcium Phosphorus Magnesium Iron TIBC Ferritin Total Bilirubin AST ALT Alkaline Phosphatase Total Creatine Kinase Troponin T C-Reactive Protein Total Protein Albumin Triglycerides HDL Cholesterol Miscellaneous Test Crossmatch 10/04/17 10/04/17 10/04/17 12:12 17:01 23:19 WBC RBC Hgb Hct MCV MCH MCHC RDW Plt Count Lymph % (Auto) [place] % (Auto) [place] # Seg Neutrophils % Seg Neuts % (Manual) Lymphocytes % (Manual) Monocytes % (Manual) Nucleated RBC % Seg Neutrophils # Seg Neutrophils # Man Lymphocytes # (Manual) Monocytes # (Manual) Eosinophils # (Manual) Basophils # (Manual) PT INR POC ABG pH ABG pH POC ABG pCO2 POC ABG pO2 ABG pO2 ABG O2 Saturation ABG Base Excess ABG Hemoglobin Oxyhemoglobin Sodium Potassium Chloride Carbon Dioxide BUN Creatinine Glucose POC Glucose 216 H 244 H 241 H Calcium Phosphorus Magnesium Iron TIBC Ferritin Total Bilirubin AST ALT Alkaline Phosphatase Total Creatine Kinase Troponin T C-Reactive Protein Total Protein Albumin Triglycerides HDL Cholesterol Miscellaneous Test Crossmatch 10/05/17 10/05/17 10/05/17 04:00 04:00 05:16 WBC 14.3 H RBC 2.56 L Hgb 7.7 L Hct 23.2 L MCV MCH MCHC RDW 17.5 H Plt Count Lymph % (Auto) [place] % (Auto) [place] # Seg Neutrophils % Seg Neuts % (Manual) 25.0 L Lymphocytes % (Manual) 12.0 L Monocytes % (Manual) 13.0 H Nucleated RBC % Seg Neutrophils # Seg Neutrophils # Man Lymphocytes # (Manual) Monocytes # (Manual) 1.9 H Eosinophils # (Manual) Basophils # (Manual) PT INR POC ABG pH ABG pH POC ABG pCO2 POC ABG pO2 ABG pO2 ABG O2 Saturation ABG Base Excess ABG Hemoglobin Oxyhemoglobin Sodium Potassium Chloride Carbon Dioxide 20 L BUN 113 H Creatinine 3.0 H Glucose 229 H POC Glucose 247 H Calcium Phosphorus Magnesium Iron TIBC Ferritin Total Bilirubin AST ALT Alkaline Phosphatase Total Creatine Kinase Troponin T C-Reactive Protein Total Protein Albumin Triglycerides HDL Cholesterol Miscellaneous Test Crossmatch 10/05/17 10/05/17 10/06/17 12:28 18:26 00:00 WBC RBC Hgb Hct MCV MCH MCHC RDW Plt Count Lymph % (Auto) [place] % (Auto) [place] # Seg Neutrophils % Seg Neuts % (Manual) Lymphocytes % (Manual) Monocytes % (Manual) Nucleated RBC % Seg Neutrophils # Seg Neutrophils # Man Lymphocytes # (Manual) Monocytes # (Manual) Eosinophils # (Manual) Basophils # (Manual) PT INR POC ABG pH ABG pH POC ABG pCO2 POC ABG pO2 ABG pO2 ABG O2 Saturation ABG Base Excess ABG Hemoglobin Oxyhemoglobin Sodium Potassium Chloride Carbon Dioxide BUN Creatinine Glucose POC Glucose 237 H 127 H 110 H Calcium Phosphorus Magnesium Iron TIBC Ferritin Total Bilirubin AST ALT Alkaline Phosphatase Total Creatine Kinase Troponin T C-Reactive Protein Total Protein Albumin Triglycerides HDL Cholesterol Miscellaneous Test Crossmatch 10/06/17 10/06/17 04:07 05:16 WBC RBC Hgb Hct MCV MCH MCHC RDW Plt Count Lymph % (Auto) [place] % (Auto) [place] # Seg Neutrophils % Seg Neuts % (Manual) Lymphocytes % (Manual) Monocytes % (Manual) Nucleated RBC % Seg Neutrophils # Seg Neutrophils # Man Lymphocytes # (Manual) Monocytes # (Manual) Eosinophils # (Manual) Basophils # (Manual) PT INR POC ABG pH ABG pH POC ABG pCO2 POC ABG pO2 ABG pO2 ABG O2 Saturation ABG Base Excess ABG Hemoglobin Oxyhemoglobin Sodium Potassium 3.4 L Chloride 95.4 L Carbon Dioxide 21 L BUN 63 H Creatinine 1.9 H Glucose 45 L POC Glucose 107 H Calcium 8.3 L Phosphorus 1.80 L D Magnesium Iron TIBC Ferritin Total Bilirubin AST ALT Alkaline Phosphatase 353 H Total Creatine Kinase Troponin T C-Reactive Protein Total Protein Albumin 1.6 L Triglycerides HDL Cholesterol Miscellaneous Test Crossmatch
--- NOTE | 2017-10-06 12:55 | Progress Note ---
Assessment and Plan Assessment and plan: --Acute hypoxic respiratory failure , Status post trach Still on vent, continue current management pulmonary following --Septic shock ; requiring pressors and midodrine, Due to abdominal abscess and catheter associated UTI, candidemia Continue current management, I do following -Intra-abdominal abscess, surgery following, in view of patient's poor condition , no intervention at this point --End-stage renal disease ,Previously on PD, now on hemodialysis, per schedule --Acute blood loss anemia and anemia of chronic disease Requiring multiple PRBC transfusions, closely monitor H&H and transfuse additional if needed --Ulcerative esophagitis/small gastric ulcer, Status post EGD, s/p transfusion, continue ProtonixI --Acute bacterial peritonitis/intra-abdominal abscess/bowel obstruction S/p PD catheter removal and multiple exploratory laparatomy 08/17 expl lap - abscess LUQ, bowel obstruction, ?perforation of unclear location ; PDs cath removal, abd washout, G tube placement 08/31 expl lap with washout and closure 09/15 expl lap transverse colectomy, right-sided colostomy, washout 09/24 expl lap abdominal washout, placement of biological mesh, closure of small bowel enterotomy Complicated with wound infection, dehiscence Multiple antibiotic courses per ID recommendation; completed 7 day course of meropenem and fluconazole --catheter Associated UTI ,Completed antibiotics --History of pancreatitis ,Resolved --History of cervical surgery /Wheelchair bound --Hypoalbuminemia; severe protein calorie malnutrition; Continue TPN, --DVT prophylaxis; SCDs Patient is critically, with poor prognosis Patient's condition, poor prognosis,discussed in detail along with the nurse , with the daughter and the at the bedside Discussed in detail the Plan of care, and CODE STATUS, Patient's daughter, and the requested DO NOT RESUSCITATE status at this point Critical care time 35 minutes The high probability of a clinically significant, sudden or life threatening deterioration of the [Renal ,cv, pulmonary and GI] system(s) required my full and direct attention, intervention and personal management. The aggregate critical care time was [35] minutes. This time is in addition to time spent performing reported procedures but includes the following: [x] Data Review and interpretation [x] Patient assessment and monitoring of vital signs [x] Documentation ,discussions with family [x] Medication orders and management History Interval history: Patient seen and examined Medical records reviewed Spontaneous opening of eyes, status post trach on vent Chronically looking, vital signs reviewed Hospitalist Physical - Constitutional Vitals: Temp Pulse Resp BP Pulse Ox 100.8 F H 117 H 31 H 124/61 98 10/06/17 12:00 10/06/17 12:15 10/06/17 12:15 10/06/17 12:15 10/06/17 12:15 General appearance: Present: mild distress, cachectic, obese, disheveled - EENT Eyes: Present: PERRL, EOM intact - Neck Neck: Present: supple, other (status post tracheostomy) - Respiratory Respiratory: bilateral: diminished, rhonchi - Cardiovascular Rhythm: regular Heart Sounds: Present: S1 & S2 - Extremities Extremities: no ischemia, No edema - Abdominal General gastrointestinal: soft, absent bowel sounds, other (surgical dressing in place) - Integumentary Integumentary: Present: clear, warm - Psychiatric Psychiatric: other (intubated, noncommunicative) - Neurologic Neurologic: other (noncommunicative) Results - Labs CBC & Chem 7: 10/05/17 04:00 10/06/17 04:07 Labs: Laboratory Last Values WBC 14.3 K/mm3 (4.5-11.0) H 10/05/17 04:00 RBC 2.56 M/mm3 (3.65-5.03) L 10/05/17 04:00 Hgb 7.7 gm/dl (10.1-14.3) L 10/05/17 04:00 Hct 23.2 % (30.3-42.9) L 10/05/17 04:00 MCV 91 fl (79-97) 10/05/17 04:00 MCH 30 pg (28-32) 10/05/17 04:00 MCHC 33 % (30-34) 10/05/17 04:00 RDW 17.5 % (13.2-15.2) H 10/05/17 04:00 Plt Count 308 K/mm3 (140-440) 10/05/17 04:00 Lymph % (Auto) Manager [employer] 08/19/17 07:37 [place] % (Auto) Manager [employer] 10/05/17 04:00 Eos % (Auto) [employer] 08/19/17 07:37 Baso % (Auto) [employer] 08/19/17 07:37 Lymph # Manager [employer] 09/26/17 05:25 [place] # Manager [employer] 08/19/17 07:37 Eos # Manager [employer] 08/19/17 07:37 Baso # Manager [employer] 08/19/17 07:37 Add Manual Diff Complete 10/05/17 04:00 Total Counted 100 10/05/17 04:00 Seg Neutrophils % Manager [employer] 09/08/17 04:05 Seg Neuts % (Manual) 25.0 % (40.0-70.0) L 10/05/17 04:00 Band Neutrophils % 50.0 % 10/05/17 04:00 Lymphocytes % (Manual) 12.0 % (13.4-35.0) L 10/05/17 04:00 Reactive Lymphs % (Man) 0 % 10/05/17 04:00 Monocytes % (Manual) 13.0 % (0.0-7.3) H 10/05/17 04:00 Eosinophils % (Manual) 0 % (0.0-4.3) 10/05/17 04:00 Basophils % (Manual) 0 % (0.0-1.8) 10/05/17 04:00 Metamyelocytes % 0 % 10/05/17 04:00 Myelocytes % 0 % 10/05/17 04:00 Promyelocytes % 0 % 10/05/17 04:00 Blast Cells % 0 % 10/05/17 04:00 Nucleated RBC % Not Reportable 10/05/17 04:00 Seg Neutrophils # Manager [employer] 08/19/17 07:37 Seg Neutrophils # Man 3.6 K/mm3 (1.8-7.7) 10/05/17 04:00 Band Neutrophils # 7.2 K/mm3 10/05/17 04:00 Lymphocytes # (Manual) 1.7 K/mm3 (1.2-5.4) 10/05/17 04:00 Abs React Lymphs (Man) 0.0 K/mm3 10/05/17 04:00 Monocytes # (Manual) 1.9 K/mm3 (0.0-0.8) H 10/05/17 04:00 Eosinophils # (Manual) 0.0 K/mm3 (0.0-0.4) 10/05/17 04:00 Basophils # (Manual) 0.0 K/mm3 (0.0-0.1) 10/05/17 04:00 Metamyelocytes # 0.0 K/mm3 10/05/17 04:00 Myelocytes # 0.0 K/mm3 10/05/17 04:00 Promyelocytes # 0.0 K/mm3 10/05/17 04:00 Blast Cells # 0.0 K/mm3 10/05/17 04:00 Pathologist Review Not Reportable 08/30/17 05:20 WBC Morphology Not Reportable 10/05/17 04:00 Hypersegmented Neuts Not Reportable 10/05/17 04:00 Hyposegmented Neuts Not Reportable 10/05/17 04:00 Hypogranular Neuts Not Reportable 10/05/17 04:00 Smudge Cells Not Reportable 10/05/17 04:00 Toxic Granulation Not Reportable 10/05/17 04:00 Toxic Vacuolation Few 10/05/17 04:00 Dohle Bodies 1+ 10/05/17 04:00 Pelger-Huet Anomaly Not Reportable 10/05/17 04:00 Ariel Rods Not Reportable 10/05/17 04:00 Platelet Estimate Appe 10/05/17 04:00 Clumped Platelets Not Reportable 10/05/17 04:00 Plt Clumps, EDTA Not Reportable 10/05/17 04:00 Large Platelets Not Reportable 10/05/17 04:00 Giant Platelets Not Reportable 10/05/17 04:00 Platelet Satelliting Not Reportable 10/05/17 04:00 Plt Morphology Comment Not Reportable 10/05/17 04:00 RBC Morphology Not Reportable 10/05/17 04:00 Dimorphic RBCs Not Reportable 10/05/17 04:00 Polychromasia Not Reportable 10/05/17 04:00 Hypochromasia 1+ 10/05/17 04:00 Poikilocytosis Not Reportable 10/05/17 04:00 Anisocytosis 1+ 10/05/17 04:00 Microcytosis Not Reportable 10/05/17 04:00 Macrocytosis Not Reportable 10/05/17 04:00 Spherocytes Not Reportable 10/05/17 04:00 Pappenheimer Bodies Not Reportable 10/05/17 04:00 Sickle Cells Not Reportable 10/05/17 04:00 Target Cells Not Reportable 10/05/17 04:00 Tear Drop Cells Not Reportable 10/05/17 04:00 Ovalocytes Not Reportable 10/05/17 04:00 Stomatocytes Rare 09/12/17 05:25 Helmet Cells Not Reportable 10/05/17 04:00 [place] Bodies Not Reportable 10/05/17 04:00 [place] Rings Not Reportable 10/05/17 04:00 Bock Cells Not Reportable 10/05/17 04:00 Bite Cells Not Reportable 10/05/17 04:00 Crenated Cell Not Reportable 10/05/17 04:00 Elliptocytes Not Reportable 10/05/17 04:00 Acanthocytes (Spur) Not Reportable 10/05/17 04:00 Rouleaux Not Reportable 10/05/17 04:00 Hemoglobin C Crystals Not Reportable 10/05/17 04:00 Schistocytes Not Reportable 10/05/17 04:00 Malaria parasites Not Reportable 10/05/17 04:00 Jovanni Bodies Not Reportable 10/05/17 04:00 Hem Pathologist Commnt No 10/05/17 04:00 PT 14.9 Sec. (12.2-14.9) 09/21/17 07:00 INR 1.11 (0.87-1.13) 09/21/17 07:00 APTT 28.7 Sec. (24.2-36.6) 08/31/17 18:15 POC ABG pH 7.347 (7.35-7.45) L 09/13/17 11:36 ABG pH 7.323 pH Units (7.350-7.450) L 09/09/17 Unknown POC ABG pCO2 34.3 (35-45) L 09/13/17 11:36 ABG pCO2 41.1 mm Hg 09/09/17 Unknown POC ABG pO2 134 (80-105) H 09/13/17 11:36 ABG pO2 94.1 mm Hg (80.0-90.0) H 09/09/17 Unknown POC ABG HCO3 18.8 09/13/17 11:36 ABG HCO3 20.9 mmol/L (20.0-26.0) 09/09/17 Unknown POC ABG Total CO2 20 09/13/17 11:36 POC ABG O2 Sat 99 09/13/17 11:36 ABG O2 Saturation 97.2 % (95.0-99.0) 09/09/17 Unknown ABG O2 Content 10.9 (0.0-44) 09/09/17 Unknown POC ABG Base Excess -7 09/13/17 11:36 ABG Base Excess -4.8 mmol/L (-2.0-3.0) L 09/09/17 Unknown ABG Hemoglobin 8.0 gm/dl (12.0-16.0) L 09/09/17 Unknown ABG Carboxyhemoglobin 2.0 % (0.0-5.0) 09/09/17 Unknown ABG Methemoglobin 0.3 % (0.0-1.5) 09/09/17 Unknown VBG pH 7.462 (7.320-7.420) H 08/08/17 14:52 Oxyhemoglobin 94.9 % (95.0-99.0) L 09/09/17 Unknown FiO2 30 % 09/13/17 11:36 Sodium 141 mmol/L (137-145) 10/06/17 04:07 Potassium 3.4 mmol/L (3.6-5.0) L 10/06/17 04:07 Chloride 95.4 mmol/L (98-107) L 10/06/17 04:07 Carbon Dioxide 21 mmol/L (22-30) L 10/06/17 04:07 Anion Gap 28 mmol/L 10/06/17 04:07 BUN 63 mg/dL (7-17) H 10/06/17 04:07 Creatinine 1.9 mg/dL (0.7-1.2) H 10/06/17 04:07 Estimated GFR 33 ml/min 10/06/17 04:07 BUN/Creatinine Ratio 33 % 10/06/17 04:07 Glucose 45 mg/dL (65-100) L 10/06/17 04:07 POC Glucose 107 (70-105) H 10/06/17 05:16 Lactic Acid 1.60 mmol/L (0.7-2.0) 08/17/17 11:20 Calcium 8.3 mg/dL (8.4-10.2) L 10/06/17 04:07 Phosphorus 1.80 mg/dL (2.5-4.5) L D 10/06/17 04:07 Magnesium 1.70 mg/dL (1.7-2.3) 10/06/17 04:07 Iron 22 ug/dL (37-170) L 09/12/17 05:25 TIBC 81 mcg/dL (250-450) L 09/12/17 05:25 Ferritin > 2000.0 ng/mL (13.0-400.0) H 09/12/17 05:25 Total Bilirubin 0.50 mg/dL (0.1-1.2) 10/06/17 04:07 Direct Bilirubin 0.2 mg/dL (0-0.2) 08/08/17 14:11 Indirect Bilirubin 0.3 mg/dL 08/08/17 14:11 AST 33 units/L (5-40) 10/06/17 04:07 ALT 7 units/L (7-56) 10/06/17 04:07 Alkaline Phosphatase 353 units/L (35-129) H 10/06/17 04:07 Ammonia 25.0 umol/L (25-60) 08/08/17 14:52 Total Creatine Kinase 20 units/L (30-135) L 09/16/17 05:30 Troponin T 0.132 ng/mL (0.00-0.029) H* 08/09/17 13:25 C-Reactive Protein 2.80 mg/dL (0.00-1.30) H 09/06/17 05:30 NT-Pro-B Natriuret Pep 6156 pg/mL (0-900) H 08/08/17 14:11 Total Protein 6.3 g/dL (6.3-8.2) 10/06/17 04:07 Albumin 1.6 g/dL (3.9-5) L 10/06/17 04:07 Albumin/Globulin Ratio 0.3 % 10/06/17 04:07 Triglycerides 180 mg/dL (2-149) H 09/03/17 04:00 Cholesterol 91 mg/dL (50-199) 08/08/17 21:23 LDL Cholesterol Direct 53 mg/dL (50-130) 08/08/17 21:23 HDL Cholesterol 26 mg/dL (40-59) L 08/08/17 21:23 Cholesterol/HDL Ratio 3.50 % 08/08/17 21:23 Amylase 45 units/L (27-131) 08/16/17 09:50 Lipase 34 units/L (13-60) 08/16/17 09:50 TSH 6.580 mlU/mL (0.270-4.200) H 08/08/17 14:22 Free T4 1.46 ng/dL (0.76-1.46) 08/08/17 14: Total Cortisol 28.3 mcg/dL () 09/13/17 12:50 Urine Color Yellow (Yellow) 08/08/17 20:15 Urine Turbidity Turbid (Clear) 08/08/17 20:15 Urine pH 8.0 (5.0-7.0) H 08/08/17 20:15 Ur Specific [place] 1.015 (1.003-1.030) 08/08/17 20:15 Urine Protein 100 mg/dl mg/dL (Negative) 08/08/17 20:15 Urine Glucose (UA) Neg mg/dL (Negative) 08/08/17 20:15 Urine Ketones Neg mg/dL (Negative) 08/08/17 20:15 Urine Blood Mod (Negative) 08/08/17 20:15 Urine Nitrite Neg (Negative) 08/08/17 20:15 Urine Bilirubin Neg (Negative) 08/08/17 20:15 Urine Urobilinogen < 2.0 mg/dL (<2.0) 08/08/17 20:15 Ur Leukocyte Esterase Lg (Negative) 08/08/17 20:15 Urine WBC (Auto) 24.0 /HPF (0.0-6.0) H 08/08/17 20:15 Urine RBC (Auto) 3.0 /HPF (0.0-6.0) 08/08/17 20:15 U Epithel Cells (Auto) 3.0 /HPF (0-13.0) 08/08/17 20:15 Urine Bacteria (Auto) 4+ /HPF (Negative) 08/08/17 20:15 Urine Mucus 3+ /HPF 08/08/17 20:15 Fluid Type Peritoneal 08/08/17 18:18 Fluid Color Straw 08/08/17 18:18 Fluid Appearance Clear 08/08/17 18:18 Fluid pH 7.74 08/08/17 18:18 Fluid WBC 4 /mm3 08/08/17 18:18 Fluid RBC 1 /mm3 08/08/17 18:18 Fluid Seg Neutrophils 12 % 08/08/17 18:18 Fluid Lymphocytes 0 % 08/08/17 18:18 Fluid Reactive Lymphs 0 % 08/08/17 18:18 Fluid Monocytes 1 % 08/08/17 18:18 Fluid Eosinophils 0 % 08/08/17 18:18 Fluid Basophils 0 % 08/08/17 18:18 Fluid Glucose 315 mg/dL (40-70) H 08/08/17 18:18 Random Vancomycin 19.5 ug/mL (0-40.0) 08/22/17 03:40 Hep Bs Antigen Non-reactive (Negative) 08/22/17 03:40 Hepatitis C Antibody Non-reactive (NonReactive) 08/22/17 03:40 Miscellaneous Test Flexitest 1 H 09/06/17 09:57 Blood Type O POSITIVE 09/27/17 08:58 Antibody Screen Negative 09/27/17 08:58 VAN Antibody Screen Negative 09/07/17 17:07 Crossmatch See Detail 09/27/17 08:58
--- NOTE | 2017-10-06 14:20 | Event Note ---
Date: 10/06/17 I was asked to review the CT scan by Dr. Rasmussen. I reviewed the CT scan, and there is a large amount of extraluminal contrast in the left upper quadrant that is being drained towards the midline and to the left upper quadrant drain compatible with a leak. This could be arising from the stomach. This is not amenable to percutaneous drainage, and would require surgical correction. Unfortunately, the family has made patient DO NOT RESUSCITATE and does not want her to have any more surgery. There is a small collection above the uterus. In order to access this collection, the patient would need to be placed in a prone position, and even then, it may not be accessible. The patient cannot tolerate prone position, especially given the left lung complete atelectasis. If the collections change, please contact us again for reassessment.
--- NOTE | 2017-10-06 14:47 | Event Note ---
CT images reviewed with Dr. Hutchinson. The patient does in fact have a leak that is shown by contrast around the stomach and the spleen. Per Dr. Hutchinson the fluid collections are being drained by the JPs she already has in place.I suspect the leak is originating from the stomach as there is an air bubble around the G tube site. At this time I would not recommend taking the patient to the operating room and the family does want any further major operations. I discussed the CT findings with the daughter via phone. At this time the G tube will be placed to gravity without any feeds or meds via the G tube. A NG will be placed to further decompress her stomach as her stomach anatomy differs due to previous bariatric surgery. The MERVIN drains that are currently in place are draining the fluid collections and Dr. Hutchinson does not recommend any further IR intervention at this time. The patient will remain on TPN for nutrition at this time.
--- NOTE | 2017-10-06 19:54 | Progress Note ---
Assessment and Plan - Patient Problems (1) Leukocytosis Current Visit: Yes Status: Acute Qualifiers: Leukocytosis type: L Plan to address problem: See notes above. make sure that PD access is clean also. see notes. Probably infection from the infected PD catheter. improving. back up again. up/down continue to monitor. it continuos to rise. still high. improved. Back up. Now improving again. still in the same range as yesterday.. worse today. 37,000 59,000 61.9 63,000. 39,000 today. 28,000. 23,000 Down to 18,000 16,000. 18.9000 14,000 no new level.will get one. (2) Anemia Current Visit: Yes Status: Acute Qualifiers: Anemia type: A Iron deficiency anemia type: I Vitamin B12 deficiency anemia type: V Folate deficiency anemia type: F Bone marrow failure anemia type: B Hemolytic anemia type: H Other causes of anemia: O Chronic kidney disease stage: C Plan to address problem: see notes , monitor labs,. see notes above. continue to monitor labs with you. blood transfusion. S/P replacement transfusion. fair. s/p 1unit transfusion. see notes. Still at 7.4 6.9, scheduled for replacement. Fairly stable at this time. continue to monitor. If less, or equal to 7.0, will need replacement transfusion, with HD. Fair at this time. 7.7 today 7.0, needs blood with next HD. 6.3, and transfused. better post transfusion. stable. monitor closely. (3) Acute respiratory failure Current Visit: Yes Status: Acute Qualifiers: Respiratory failure complication: R Plan to address problem: follow pulm. Subjective Date of service: 10/06/17 Principal diagnosis: respiratory failure, sepsis, shock rectal bleeding Interval history: Patient seen today/examined, labs reviewed, case d/w she, and family.complaints of abdominal pain. Patient resting in bed in the ICU, post vascular procedure. labs reviewed, Reactive thrombocytosis, anemia of CD, leukocytosis from infection vs inflamatory process. Patient seen/examined, in bed in the ICU, on the vent post surgery.Labs reviewed , notes reviewed. will continue to monitor labs/patient with you. Replacement transfusion, if /when indicated. patient seen/examined, SBP75, on pressors., lethargic, on the vent, labs reviewed, wbc 39,000 Patient seen/examined, case reviewed, d/w her sister at the bed side. Patient seen/examined, labs reviewed, notes reviewed. severe septic shock from infected PD catheter The high wbc is all infection related. H?H low, and may get replacement transfusion with the next HD. Prognosis remain quite poor. Patient seen/examined, extubated, now on V Mask. labs reviewed. patient seen/examined, resting in bed, still some what lethargic . labs reviewed. Patient seen/examined, resting in bed., some difficulty with breathing./ lethargic. patient seen/examined, resting in bed, looked much better labs reviewed, and fair over all. Patient seen/examined, resting in bed, labs reviewed, case d/w her. Patient seen/examined, resting in bed on BIPAP., labs reviewed. patient seen/examined, resting in bed, on Bipap.labs reviewed, fairly stable. Patient seen today, resting in bed, labs reviewed, H/H low, and transfusion already ordered. Patient seen/examined, resting in bed, transferred back to the unit, due to resp failure. She is now on venting mask. had blood replacement done. Patient seen/examined in the ICU.labs reviewed. patient intubated this am. patient resting in bed.no new issues. Patient seen/examined in the ICU, on vent,Not readily responsive. patient seen, resting in bed, no new cbc ready.will order for today. Patient seen, resting in vent, labs reviewed.notes reviewed also. patient seen/examined, resting on vent, had HD yesterday, and today., labs reviewed. Patient seen, resting in bed, labs reviewed.fairly stable labs, except the wbc. Patient seen/examined, rtesting in bed on the vent.Labs reviewed, wbc still elevated, Hgb dropped slightly. Patient seen/examined, labs reviewed, hgb 7.3, if 7.0 or less, will replace .unless otherwise indicated. Patient seen/examined, alert but lethargic.sedation drip turned down.she is s/p 1unit PRBC replacement with HD today. Patient seen/examined, labs reviewed, hgb still not quite enough at 7.5, perhaps with the next HD,can use 1-2 units. Patient seen/examined, resting in bed, trached, labs re viewed. Patient seen/examined, resting in bed, responds to name calling, SBP99, labs reviewed, Hgb 6.9, PRBC replacement ordered by primary. Patient seen/examined, in bed/trach, NGT., alert/lethargic. Patient seen/examined, resting in bed, still lethargic, labs reviewed, and still fair.Will continue to follow you. Patient seen/examined, resting in bed, labs reviewed. HD in progress.She is now getting daily HD.Labs reviewed, and still fair. Patient seen/examined, resting in bed, less lethargic/less toxic looking. labs have improved. Patient seen/examined, labs reviewed, fair, case d/w her spouse at the bed side. Patient seen/examined, resting ok in bed, alert, NAD, HD in progress.Labs reviewed, and WBC 27,000, Hgb 7.8. Patient seen/examined, resting in bed in the ICU, NAD.labs reviewed, and fair. Patient seen/examined, resting in bed, labs reviewed, WBC back up,to37,000, and Hgb down to 7.3, transfusion will be needed ,if hgb less, or equal to 7.0 Patient seen/examined, resting in bed in the ICU, alert, lethargic, labs reviewed, and fair. She remains on 5mics of levophed., Temp 100. Patient seen/examined in the ICU, alert, Labs reviewed, WBC 59,000. Patient seen/examined, resting in bed, labs reviewed, WBC up to 61.9,000, Hgb 7.0, and may benefit from PRBC replacement of 2units with HD. Patient seen/examined, resting in bed, easily awoken.Hgb low at 6.3, replaced earlier with HD today.will need repeat labs in am. Patient seen/examined today, resting in bed in the ICU, labs reviewed, WBC down again to 39,000., H/H stable, post transfusion. Patient seen/examined, labs reviewed, case d/w her spouse at the bed side. WBC down to 28,000. patient seen/examined, resting in bed, more alert today, wbc better. Patient seen/examined, resting in bed, labs reviewed, case d/w her family at the bed side in the ICU. she is alert, WBC still down at 23,000 Patient seen, resting in bed, labs reviewed, and fair, including the WBC. Patient seen/examined, resting in bed in the icu, labs reviewed, and remains stable, including the WBC. Patient seen/examined ,resting in bed, labs reviewed, and stable, WBC 18,000. Patient seen/examined resting in bed, distressed, HD in progress, Labs reviewed , and fair. Patient seen/examined, resting in bed, in distress. Labs reviewed. NGT in place , with coffee ground color. ?fistulae/abscess., vascular, on the case. Objective - Constitutional Vitals: Vital Signs - 12hr 10/06/17 10/06/17 10/06/17 08:00 08:15 08:30 Temperature 97.1 F L Pulse Rate 116 H 117 H 115 H Pulse Rate [ 118 H Apical] Respiratory 28 H 28 H 27 H Rate Blood Pressure 130/56 105/47 107/50 O2 Sat by Pulse 98 97 97 Oximetry O2 Sat by Pulse Oximetry [ Assessment] 10/06/17 10/06/17 10/06/17 08:45 08:52 09:00 Temperature Pulse Rate 123 H 118 H 113 H Pulse Rate [ Apical] Respiratory 29 H 28 H Rate Blood Pressure 95/48 97/48 102/52 O2 Sat by Pulse 97 99 97 Oximetry O2 Sat by Pulse Oximetry [ Assessment] 10/06/17 10/06/17 10/06/17 09:12 09:15 09:16 Temperature Pulse Rate 12 L 114 H 129 H Pulse Rate [ Apical] Respiratory 51 H 27 H Rate Blood Pressure 106/52 96/51 98/48 O2 Sat by Pulse 98 96 98 Oximetry O2 Sat by Pulse 98 Oximetry [ Assessment] 10/06/17 10/06/17 10/06/17 09:31 09:45 10:00 Temperature Pulse Rate 119 H 118 H 114 H Pulse Rate [ Apical] Respiratory 31 H 31 H 28 H Rate Blood Pressure 122/61 109/45 106/47 O2 Sat by Pulse 96 98 98 Oximetry O2 Sat by Pulse Oximetry [ Assessment] 10/06/17 10/06/17 10/06/17 10:15 10:30 10:45 Temperature Pulse Rate 118 H 121 H 119 H Pulse Rate [ Apical] Respiratory 26 H 29 H 29 H Rate Blood Pressure 120/54 120/54 96/51 O2 Sat by Pulse 98 99 98 Oximetry O2 Sat by Pulse Oximetry [ Assessment] 10/06/17 10/06/17 10/06/17 11:00 11:15 11:30 Temperature Pulse Rate 115 H 116 H 117 H Pulse Rate [ Apical] Respiratory 26 H 31 H 25 H Rate Blood Pressure 94/45 119/53 113/48 O2 Sat by Pulse 98 97 98 Oximetry O2 Sat by Pulse Oximetry [ Assessment] 10/06/17 10/06/17 10/06/17 11:31 11:45 12:00 Temperature 100.8 F H Pulse Rate 117 H 116 H 114 H Pulse Rate [ Apical] Respiratory 30 H 30 H Rate Blood Pressure 90/41 115/51 113/56 O2 Sat by Pulse 99 98 97 Oximetry O2 Sat by Pulse Oximetry [ Assessment] 10/06/17 10/06/17 10/06/17 12:15 12:30 12:45 Temperature Pulse Rate 117 H 116 H 118 H Pulse Rate [ Apical] Respiratory 31 H 32 H 32 H Rate Blood Pressure 124/61 126/55 113/51 O2 Sat by Pulse 98 97 98 Oximetry O2 Sat by Pulse Oximetry [ Assessment] 10/06/17 10/06/17 10/06/17 13:01 13:15 13:30 Temperature Pulse Rate 118 H 116 H 116 H Pulse Rate [ Apical] Respiratory 27 H 28 H 31 H Rate Blood Pressure 105/43 103/48 96/42 O2 Sat by Pulse 97 98 99 Oximetry O2 Sat by Pulse Oximetry [ Assessment] 10/06/17 10/06/17 10/06/17 13:45 14:00 14:15 Temperature Pulse Rate 113 H 114 H 113 H Pulse Rate [ Apical] Respiratory 27 H 30 H 31 H Rate Blood Pressure 75/39 74/40 85/42 O2 Sat by Pulse 99 98 99 Oximetry O2 Sat by Pulse Oximetry [ Assessment] 10/06/17 10/06/17 10/06/17 14:30 14:45 15:00 Temperature Pulse Rate 114 H 112 H 116 H Pulse Rate [ Apical] Respiratory 32 H 26 H 30 H Rate Blood Pressure 86/53 105/56 117/53 O2 Sat by Pulse 99 99 98 Oximetry O2 Sat by Pulse Oximetry [ Assessment] 10/06/17 10/06/17 10/06/17 15:12 15:15 15:23 Temperature Pulse Rate 117 H 131 H Pulse Rate [ Apical] Respiratory 18 Rate Blood Pressure 106/53 117/63 O2 Sat by Pulse 99 99 Oximetry O2 Sat by Pulse 97 Oximetry [ Assessment] 10/06/17 10/06/17 10/06/17 15:30 15:45 16:00 Temperature 99.6 F Pulse Rate 116 H 117 H 117 H Pulse Rate [ Apical] Respiratory 33 H 32 H 24 Rate Blood Pressure 106/54 111/54 95/44 O2 Sat by Pulse 96 96 97 Oximetry O2 Sat by Pulse Oximetry [ Assessment] 10/06/17 10/06/17 10/06/17 16:15 16:30 16:45 Temperature Pulse Rate 116 H 115 H 115 H Pulse Rate [ Apical] Respiratory 29 H 24 28 H Rate Blood Pressure 89/42 90/42 87/40 O2 Sat by Pulse 97 97 96 Oximetry O2 Sat by Pulse Oximetry [ Assessment] 10/06/17 10/06/17 10/06/17 17:00 17:15 17:30 Temperature Pulse Rate 120 H 117 H 117 H Pulse Rate [ Apical] Respiratory 32 H 29 H 24 Rate Blood Pressure 99/42 104/44 113/51 O2 Sat by Pulse 97 96 Oximetry O2 Sat by Pulse Oximetry [ Assessment] 10/06/17 10/06/17 10/06/17 17:45 18:00 18:15 Temperature Pulse Rate 115 H 118 H 118 H Pulse Rate [ Apical] Respiratory 31 H 33 H 30 H Rate Blood Pressure 109/49 112/57 103/50 O2 Sat by Pulse 96 96 96 Oximetry O2 Sat by Pulse Oximetry [ Assessment] 10/06/17 19:38 Temperature 102.1 F H Pulse Rate Pulse Rate [ Apical] Respiratory Rate Blood Pressure O2 Sat by Pulse Oximetry O2 Sat by Pulse Oximetry [ Assessment] General appearance: Present: severe distress - EENT Eyes: PERRL, EOM intact ENT: hearing intact, clear oral mucosa Ears: bilateral: normal - Neck Neck: supple, normal ROM - Respiratory Respiratory: bilateral: diminished, rhonchi - Breasts Breasts: deferred - Cardiovascular Rhythm: regular Heart Sounds: Present: S1 & S2. Absent: gallop, rub Extremities: pulses intact, No edema, normal color, Full ROM - Gastrointestinal General gastrointestinal: Present: soft, non-tender, non-distended, normal bowel sounds Rectal Exam: deferred - Genitourinary Female genitourinary: deferred - Integumentary Integumentary: clear, warm, dry - Musculoskeletal Musculoskeletal: 1, strength equal bilaterally - Neurologic Neurologic: moves all extremities - Psychiatric Psychiatric: appropriate mood/affect - Labs CBC & Chem 7: 10/05/17 04:00 10/06/17 04:07 Labs: Abnormal lab results 10/06/17 10/06/17 10/06/17 Range/Units 00:00 04:07 05:16 Potassium 3.4 L (3.6-5.0) mmol/L Chloride 95.4 L (98-107) mmol/L Carbon Dioxide 21 L (22-30) mmol/L BUN 63 H (7-17) mg/dL Creatinine 1.9 H (0.7-1.2) mg/dL Glucose 45 L (65-100) mg/dL POC Glucose 110 H 107 H (70-105) Calcium 8.3 L (8.4-10.2) mg/dL Phosphorus 1.80 L D (2.5-4.5) mg/dL Alkaline Phosphatase 353 H (35-129) units/L Albumin 1.6 L (3.9-5) g/dL
[2017-10-06] MEDS ORDERED: TPN ADULT 1,800 ML IV SCH ×2 (20:00)
[2017-10-07] MEDS: LEVOPHED 8 MG in NACL 0.9% 250ML 242 ML IV SCH ×2 (01:19→13:35)
[2017-10-07] MEDS: NOVOLOG SUB-Q SCH ×2 (02:32→07:24)
[2017-10-07 06:00] LABS: Mean Corpuscular HGB Conc 32 % (30-34); Mean Corpuscular Hemoglobin 29 pg (28-32); Mean Corpuscular Volume 90 fl (79-97); Platelet Count 340 K/mm3 (140-440); Red Blood Count 2.45 M/mm3 (3.65-5.03); Red Cell Distribution Width 16.8 % (13.2-15.2)
[2017-10-07 06:27] LABS: Calcium 8.3 mg/dL (8.4-10.2); Chloride 99.5 mmol/L (98-107); Magnesium 1.7 mg/dL (1.7-2.3); Phosphorous 4.6 mg/dL (2.5-4.5); Potassium 4.2 mmol/L (3.6-5.0)
[2017-10-07 07:03] LABS: White Blood Count 21.4 K/mm3 (4.5-11.0)
--- NOTE | 2017-10-07 07:29 | Progress Note ---
Assessment and Plan 1. ESRD: Continue HD on MWF. Monitor lytes. S/p switched from PD. 2. Anemia: S/p multiple units of PRBC. Patient continues to drop Hb level. Epogen on MWF. 3. Hypotension: Remain on Levophed. Unable to use the G-tube due to bowel leak. 4. Volume overload: UF with hemodialysis. Isolated UF on TTS as needed / tolerated. 5. Acute respiratory failure: On the vent. 6. Sepsis/Fungemia: followed by ID. 7. Gastric perforation and SBO: S/p ex lap, repair of enterotomy. Colonic perforation: S/p ex lap, transverse colon resection, colostomy creation. Abdominal Wound leak: S/p ex lap, abdominal wash out and abdominal wall closure. Patient is DNR. D/w her at the beside. He is considering hospice. Subjective Date of service: 10/07/17 Principal diagnosis: respiratory failure, sepsis, shock rectal bleeding Interval history: Patient was seen and examined at the bedside. Remain on the vent. Objective - Vital Signs Vital signs: Vital Signs - 12hr 10/06/17 10/06/17 10/06/17 19:30 19:38 19:45 Temperature 102.1 F H Pulse Rate 117 H 121 H Pulse Rate [ Apical] Respiratory 29 H 33 H Rate Blood Pressure 107/47 108/53 O2 Sat by Pulse 97 96 Oximetry O2 Sat by Pulse Oximetry [ Assessment] 10/06/17 10/06/17 10/06/17 20:00 20:15 20:30 Temperature Pulse Rate 120 H 119 H 118 H Pulse Rate [ 125 H Apical] Respiratory 31 H 28 H 33 H Rate Blood Pressure 100/48 108/45 103/46 O2 Sat by Pulse 97 97 97 Oximetry O2 Sat by Pulse Oximetry [ Assessment] 10/06/17 10/06/17 10/06/17 20:45 21:00 21:15 Temperature Pulse Rate 118 H 116 H 116 H Pulse Rate [ Apical] Respiratory 31 H 32 H 31 H Rate Blood Pressure 105/46 104/44 103/47 O2 Sat by Pulse 98 95 95 Oximetry O2 Sat by Pulse Oximetry [ Assessment] 10/06/17 10/06/17 10/06/17 21:30 21:36 21:45 Temperature Pulse Rate 115 H 117 H 115 H Pulse Rate [ Apical] Respiratory 32 H 31 H Rate Blood Pressure 107/44 105/46 101/48 O2 Sat by Pulse 95 99 96 Oximetry O2 Sat by Pulse Oximetry [ Assessment] 10/06/17 10/06/17 10/06/17 22:00 22:05 22:15 Temperature Pulse Rate 116 H 105 H 116 H Pulse Rate [ Apical] Respiratory 31 H 19 35 H Rate Blood Pressure 105/52 105/52 102/56 O2 Sat by Pulse 97 99 96 Oximetry O2 Sat by Pulse Oximetry [ Assessment] 10/06/17 10/06/17 10/06/17 22:30 22:45 23:00 Temperature Pulse Rate 118 H 115 H 117 H Pulse Rate [ Apical] Respiratory 33 H 28 H 28 H Rate Blood Pressure 106/55 107/47 117/50 O2 Sat by Pulse 98 95 95 Oximetry O2 Sat by Pulse Oximetry [ Assessment] 10/06/17 10/06/17 10/06/17 23:15 23:30 23:39 Temperature 102.3 F H Pulse Rate 116 H 118 H Pulse Rate [ Apical] Respiratory 31 H 26 H Rate Blood Pressure 107/54 117/54 O2 Sat by Pulse 97 96 Oximetry O2 Sat by Pulse Oximetry [ Assessment] 10/06/17 10/07/17 10/07/17 23:45 00:00 00:12 Temperature Pulse Rate 114 H 118 H Pulse Rate [ 118 H Apical] Respiratory 26 H 32 H Rate Blood Pressure 108/51 112/61 O2 Sat by Pulse 98 98 Oximetry O2 Sat by Pulse 98 Oximetry [ Assessment] 10/07/17 10/07/17 10/07/17 00:15 00:30 00:45 Temperature Pulse Rate 119 H 116 H 118 H Pulse Rate [ Apical] Respiratory 32 H 25 H 28 H Rate Blood Pressure 107/56 105/54 111/57 O2 Sat by Pulse 97 97 97 Oximetry O2 Sat by Pulse Oximetry [ Assessment] 10/07/17 10/07/17 10/07/17 00:51 01:00 01:15 Temperature Pulse Rate 112 H 118 H 117 H Pulse Rate [ Apical] Respiratory 30 H 31 H Rate Blood Pressure 111/57 110/54 108/54 O2 Sat by Pulse 98 100 97 Oximetry O2 Sat by Pulse Oximetry [ Assessment] 10/07/17 10/07/17 10/07/17 01:30 01:45 02:00 Temperature Pulse Rate 110 H 122 H 118 H Pulse Rate [ Apical] Respiratory 22 28 H 34 H Rate Blood Pressure 114/46 119/51 106/57 O2 Sat by Pulse 100 97 97 Oximetry O2 Sat by Pulse Oximetry [ Assessment] 10/07/17 10/07/17 10/07/17 02:15 02:30 02:45 Temperature Pulse Rate 117 H 118 H 119 H Pulse Rate [ Apical] Respiratory 28 H 33 H 31 H Rate Blood Pressure 95/50 90/51 90/51 O2 Sat by Pulse 97 97 98 Oximetry O2 Sat by Pulse Oximetry [ Assessment] 10/07/17 10/07/17 10/07/17 03:00 03:15 03:30 Temperature Pulse Rate 115 H 116 H 111 H Pulse Rate [ Apical] Respiratory 31 H 26 H 27 H Rate Blood Pressure 113/53 117/59 113/54 O2 Sat by Pulse 96 97 97 Oximetry O2 Sat by Pulse Oximetry [ Assessment] 10/07/17 10/07/17 10/07/17 03:45 03:50 04:00 Temperature 99.6 F Pulse Rate 108 H 110 H Pulse Rate [ 112 H Apical] Respiratory 36 H 30 H Rate Blood Pressure 140/67 137/60 104/56 O2 Sat by Pulse 98 Oximetry O2 Sat by Pulse Oximetry [ Assessment] 10/07/17 10/07/17 10/07/17 04:15 04:30 04:45 Temperature Pulse Rate 108 H 108 H 111 H Pulse Rate [ Apical] Respiratory 27 H 29 H 25 H Rate Blood Pressure 112/56 104/58 109/58 O2 Sat by Pulse Oximetry O2 Sat by Pulse Oximetry [ Assessment] 10/07/17 10/07/17 10/07/17 05:00 05:15 05:30 Temperature Pulse Rate 114 H 114 H 111 H Pulse Rate [ Apical] Respiratory 29 H 33 H 32 H Rate Blood Pressure 99/63 115/55 120/56 O2 Sat by Pulse 100 100 Oximetry O2 Sat by Pulse Oximetry [ Assessment] 10/07/17 10/07/17 10/07/17 05:45 06:00 06:15 Temperature Pulse Rate 111 H 109 H 112 H Pulse Rate [ Apical] Respiratory 30 H 28 H 32 H Rate Blood Pressure 118/59 124/64 121/62 O2 Sat by Pulse 100 100 100 Oximetry O2 Sat by Pulse Oximetry [ Assessment] 10/07/17 10/07/17 10/07/17 06:31 06:45 07:00 Temperature Pulse Rate 120 H 114 H 113 H Pulse Rate [ Apical] Respiratory 33 H 27 H 32 H Rate Blood Pressure 137/60 121/59 121/56 O2 Sat by Pulse 96 100 99 Oximetry O2 Sat by Pulse Oximetry [ Assessment] 10/07/17 07:15 Temperature Pulse Rate 114 H Pulse Rate [ Apical] Respiratory 32 H Rate Blood Pressure 122/54 O2 Sat by Pulse 100 Oximetry O2 Sat by Pulse Oximetry [ Assessment] - General Appearance General appearance: well-developed, appears stated age, obese, other (on vent, FiO2 25%, right IJ temp catheter) EENT: ATNC Neck: other (trached) Respiratory: Present: Clear to Ascultation Cardiology: regular, S1S2, no murmurs Gastrointestinal: normoactive bowel sounds, obese, other (Ostomy, MERVIN drain, G- tube noted) Integumentary: no rash Neurologic: other (barely arousable) Musculoskeletal: other (1+ edema of extremities) - Lab 10/07/17 05:20 10/07/17 05:20 Most recent lab results ABG pH 7.323 pH Units (7.350-7.450) L 09/09/17 Unknown ABG pCO2 41.1 mm Hg 09/09/17 Unknown ABG pO2 94.1 mm Hg (80.0-90.0) H 09/09/17 Unknown ABG HCO3 20.9 mmol/L (20.0-26.0) 09/09/17 Unknown ABG O2 Saturation 97.2 % (95.0-99.0) 09/09/17 Unknown Calcium 8.3 mg/dL (8.4-10.2) L 10/07/17 05:20 Phosphorus 4.60 mg/dL (2.5-4.5) H D 10/07/17 05:20 Magnesium 1.70 mg/dL (1.7-2.3) 10/07/17 05:20
[2017-10-07] MEDS: DILAUDID IV PRN (08:00)
[2017-10-07] MEDS: PROAMATINE FEEDTUBE SCH (08:39)
--- NOTE | 2017-10-07 09:08 | Progress Note ---
Assessment and Plan Acute bacterial peritonitis/abscess s/p exlap. Sepsis. Gastric leak,on broad spectrum plus candidemia coverage SBO w wound dehiscence. See events by and Acute respiratory failure, Left lung atelectasis. No x-ray this morning since the patient be moved to hospice. RTC deep report earlier this morning removal of a large mucous plug after lavage and suctioning. Oxygen remained stable Morbid obesity, ESRD Anemia. Controlled LGIB status post acute blood loss anemia Rec: Will continue the current ventilatory support. No additional treatment recommendations in view of patient with be moved hospice today. Will likely discontinue antibiotics once hospice transfer has being completed Monitor blood pressure and bleeding currently on Levophed Prognosis is guarded . No family available for additional case discussion. critical care time was 31 minutes of [id number] evaluation and coordination of care Subjective Date of service: 10/07/17 Principal diagnosis: respiratory failure, sepsis, shock rectal bleeding Interval history: Poorly responsive. Off sedation Objective Vital Signs - 12hr 10/06/17 10/06/17 10/06/17 21:15 21:30 21:36 Temperature Pulse Rate 116 H 115 H 117 H Pulse Rate [ Apical] Respiratory 31 H 32 H Rate Blood Pressure 103/47 107/44 105/46 O2 Sat by Pulse 95 95 99 Oximetry O2 Sat by Pulse Oximetry [ Assessment] 10/06/17 10/06/17 10/06/17 21:45 22:00 22:05 Temperature Pulse Rate 115 H 116 H 105 H Pulse Rate [ Apical] Respiratory 31 H 31 H 19 Rate Blood Pressure 101/48 105/52 105/52 O2 Sat by Pulse 96 97 99 Oximetry O2 Sat by Pulse Oximetry [ Assessment] 10/06/17 10/06/17 10/06/17 22:15 22:30 22:45 Temperature Pulse Rate 116 H 118 H 115 H Pulse Rate [ Apical] Respiratory 35 H 33 H 28 H Rate Blood Pressure 102/56 106/55 107/47 O2 Sat by Pulse 96 98 95 Oximetry O2 Sat by Pulse Oximetry [ Assessment] 10/06/17 10/06/17 10/06/17 23:00 23:15 23:30 Temperature Pulse Rate 117 H 116 H 118 H Pulse Rate [ Apical] Respiratory 28 H 31 H 26 H Rate Blood Pressure 117/50 107/54 117/54 O2 Sat by Pulse 95 97 96 Oximetry O2 Sat by Pulse Oximetry [ Assessment] 10/06/17 10/06/17 10/07/17 23:39 23:45 00:00 Temperature 102.3 F H Pulse Rate 114 H 118 H Pulse Rate [ 118 H Apical] Respiratory 26 H 32 H Rate Blood Pressure 108/51 112/61 O2 Sat by Pulse 98 98 Oximetry O2 Sat by Pulse Oximetry [ Assessment] 10/07/17 10/07/17 10/07/17 00:12 00:15 00:30 Temperature Pulse Rate 119 H 116 H Pulse Rate [ Apical] Respiratory 32 H 25 H Rate Blood Pressure 107/56 105/54 O2 Sat by Pulse 97 97 Oximetry O2 Sat by Pulse 98 Oximetry [ Assessment] 10/07/17 10/07/17 10/07/17 00:45 00:51 01:00 Temperature Pulse Rate 118 H 112 H 118 H Pulse Rate [ Apical] Respiratory 28 H 30 H Rate Blood Pressure 111/57 111/57 110/54 O2 Sat by Pulse 97 98 100 Oximetry O2 Sat by Pulse Oximetry [ Assessment] 10/07/17 10/07/17 10/07/17 01:15 01:30 01:45 Temperature Pulse Rate 117 H 110 H 122 H Pulse Rate [ Apical] Respiratory 31 H 22 28 H Rate Blood Pressure 108/54 114/46 119/51 O2 Sat by Pulse 97 100 97 Oximetry O2 Sat by Pulse Oximetry [ Assessment] 10/07/17 10/07/17 10/07/17 02:00 02:15 02:30 Temperature Pulse Rate 118 H 117 H 118 H Pulse Rate [ Apical] Respiratory 34 H 28 H 33 H Rate Blood Pressure 106/57 95/50 90/51 O2 Sat by Pulse 97 97 97 Oximetry O2 Sat by Pulse Oximetry [ Assessment] 10/07/17 10/07/17 10/07/17 02:45 03:00 03:15 Temperature Pulse Rate 119 H 115 H 116 H Pulse Rate [ Apical] Respiratory 31 H 31 H 26 H Rate Blood Pressure 90/51 113/53 117/59 O2 Sat by Pulse 98 96 97 Oximetry O2 Sat by Pulse Oximetry [ Assessment] 10/07/17 10/07/17 10/07/17 03:30 03:45 03:50 Temperature Pulse Rate 111 H 108 H Pulse Rate [ Apical] Respiratory 27 H 36 H Rate Blood Pressure 113/54 140/67 137/60 O2 Sat by Pulse 97 98 Oximetry O2 Sat by Pulse Oximetry [ Assessment] 10/07/17 10/07/17 10/07/17 04:00 04:15 04:30 Temperature 99.6 F Pulse Rate 110 H 108 H 108 H Pulse Rate [ 112 H Apical] Respiratory 30 H 27 H 29 H Rate Blood Pressure 104/56 112/56 104/58 O2 Sat by Pulse Oximetry O2 Sat by Pulse Oximetry [ Assessment] 10/07/17 10/07/17 10/07/17 04:45 05:00 05:15 Temperature Pulse Rate 111 H 114 H 114 H Pulse Rate [ Apical] Respiratory 25 H 29 H 33 H Rate Blood Pressure 109/58 99/63 115/55 O2 Sat by Pulse 100 Oximetry O2 Sat by Pulse Oximetry [ Assessment] 10/07/17 10/07/17 10/07/17 05:30 05:45 06:00 Temperature Pulse Rate 111 H 111 H 109 H Pulse Rate [ Apical] Respiratory 32 H 30 H 28 H Rate Blood Pressure 120/56 118/59 124/64 O2 Sat by Pulse 100 100 100 Oximetry O2 Sat by Pulse Oximetry [ Assessment] 10/07/17 10/07/17 10/07/17 06:15 06:31 06:45 Temperature Pulse Rate 112 H 120 H 114 H Pulse Rate [ Apical] Respiratory 32 H 33 H 27 H Rate Blood Pressure 121/62 137/60 121/59 O2 Sat by Pulse 100 96 100 Oximetry O2 Sat by Pulse Oximetry [ Assessment] 10/07/17 10/07/17 10/07/17 07:00 07:15 07:30 Temperature Pulse Rate 113 H 114 H 114 H Pulse Rate [ Apical] Respiratory 32 H 32 H 33 H Rate Blood Pressure 121/56 122/54 119/62 O2 Sat by Pulse 99 100 100 Oximetry O2 Sat by Pulse Oximetry [ Assessment] 10/07/17 10/07/17 10/07/17 07:45 07:54 08:00 Temperature 100.1 F H Pulse Rate 115 H 114 H Pulse Rate [ Apical] Respiratory 33 H 28 H Rate Blood Pressure 114/67 118/71 O2 Sat by Pulse 100 100 Oximetry O2 Sat by Pulse Oximetry [ Assessment] 10/07/17 08:15 Temperature Pulse Rate 115 H Pulse Rate [ Apical] Respiratory 30 H Rate Blood Pressure 117/76 O2 Sat by Pulse 99 Oximetry O2 Sat by Pulse Oximetry [ Assessment] Constitutional: no acute distress, lethargic Eyes: non-icteric ENT: oropharynx dry Neck: supple, other (trach in position, no bleeding. NG tube in place with some blood residue) Effort: normal Ascultation: Bilateral: clear ( ), diminished breath sounds, other (coarse BS bilaterally) Cardiovascular: regular rate and rhythm Gastrointestinal: absent bowel sounds, non-tender, other (abdominal incision with dressing , obese. Drain in place, no bleeding; ostomy with brown stool) Integumentary: normal Extremities: no cyanosis, pink and warm, edema Neurologic: non-focal exam, pupils equal and round, other (response to stimuli mostly flexor her feet, no focal. No eye opening) Psychiatric: mood appropriate, affect normal CBC and BMP: 10/07/17 05:20 10/07/17 05:20 ABG, PT/INR, D-dimer: ABG POC ABG pH 7.347 (7.35-7.45) L 09/13/17 11:36 ABG pH 7.323 pH Units (7.350-7.450) L 09/09/17 Unknown POC ABG pCO2 34.3 (35-45) L 09/13/17 11:36 ABG pCO2 41.1 mm Hg 09/09/17 Unknown POC ABG pO2 134 (80-105) H 09/13/17 11:36 ABG pO2 94.1 mm Hg (80.0-90.0) H 09/09/17 Unknown POC ABG HCO3 18.8 09/13/17 11:36 POC ABG Total CO2 20 09/13/17 11:36 POC ABG O2 Sat 99 09/13/17 11:36 ABG O2 Saturation 97.2 % (95.0-99.0) 09/09/17 Unknown PT/INR, D-dimer PT 14.9 Sec. (12.2-14.9) 09/21/17 07:00 INR 1.11 (0.87-1.13) 09/21/17 07:00 Abnormal lab findings: Abnormal Labs 08/08/17 08/08/17 08/09/17 21:23 21:31 11:19 WBC 15.7 H RBC 2.93 L Hgb 8.7 L Hct 26.8 L MCV MCH MCHC RDW 19.2 H Plt Count Lymph % (Auto) [place] % (Auto) [place] # Seg Neutrophils % Seg Neuts % (Manual) Lymphocytes % (Manual) Monocytes % (Manual) Nucleated RBC % Seg Neutrophils # Seg Neutrophils # Man Lymphocytes # (Manual) Monocytes # (Manual) Eosinophils # (Manual) Basophils # (Manual) PT INR POC ABG pH 7.490 H ABG pH POC ABG pCO2 POC ABG pO2 122 H ABG pO2 ABG O2 Saturation ABG Base Excess ABG Hemoglobin Oxyhemoglobin Sodium Potassium Chloride Carbon Dioxide BUN Creatinine Glucose POC Glucose Calcium Phosphorus Magnesium Iron TIBC Ferritin Total Bilirubin AST ALT Alkaline Phosphatase Total Creatine Kinase Troponin T 0.133 H* C-Reactive Protein Total Protein Albumin Triglycerides HDL Cholesterol 26 L Miscellaneous Test Crossmatch 08/09/17 08/10/17 08/10/17 13:25 04:45 04:45 WBC 15.5 H RBC 2.97 L Hgb 8.9 L Hct 27.0 L MCV MCH MCHC RDW 19.2 H Plt Count Lymph % (Auto) [place] % (Auto) [place] # Seg Neutrophils % Seg Neuts % (Manual) 73.0 H Lymphocytes % (Manual) 7.0 L Monocytes % (Manual) 14.0 H Nucleated RBC % Seg Neutrophils # Seg Neutrophils # Man 11.3 H Lymphocytes # (Manual) 1.1 L Monocytes # (Manual) 2.2 H Eosinophils # (Manual) Basophils # (Manual) 0.2 H PT INR POC ABG pH ABG pH POC ABG pCO2 POC ABG pO2 ABG pO2 ABG O2 Saturation ABG Base Excess ABG Hemoglobin Oxyhemoglobin Sodium Potassium 3.3 L Chloride 97.3 L Carbon Dioxide 21 L BUN 23 H Creatinine 6.5 H Glucose POC Glucose Calcium 7.3 L Phosphorus Magnesium Iron TIBC Ferritin Total Bilirubin AST ALT Alkaline Phosphatase 138 H Total Creatine Kinase Troponin T 0.132 H* C-Reactive Protein Total Protein 4.8 L Albumin 1.4 L Triglycerides HDL Cholesterol Miscellaneous Test Crossmatch 08/11/17 08/11/17 08/12/17 04:00 04:00 05:50 WBC 19.3 H RBC 3.10 L Hgb 9.5 L Hct 28.2 L MCV MCH MCHC RDW 19.2 H Plt Count 463 H Lymph % (Auto) 7.5 L [place] % (Auto) 14.6 H [place] # 2.8 H Seg Neutrophils % 77.0 H Seg Neuts % (Manual) Lymphocytes % (Manual) Monocytes % (Manual) Nucleated RBC % Seg Neutrophils # 14.8 H Seg Neutrophils # Man Lymphocytes # (Manual) Monocytes # (Manual) Eosinophils # (Manual) Basophils # (Manual) PT INR POC ABG pH ABG pH POC ABG pCO2 POC ABG pO2 ABG pO2 ABG O2 Saturation ABG Base Excess ABG Hemoglobin Oxyhemoglobin Sodium 136 L 136 L Potassium 3.3 L Chloride 96.3 L 96.6 L Carbon Dioxide BUN 26 H 26 H Creatinine 6.4 H 6.2 H Glucose 135 H 133 H POC Glucose Calcium 8.2 L Phosphorus Magnesium 1.30 L Iron TIBC Ferritin Total Bilirubin AST ALT Alkaline Phosphatase 139 H Total Creatine Kinase Troponin T C-Reactive Protein Total Protein 5.5 L Albumin 1.7 L Triglycerides HDL Cholesterol Miscellaneous Test Crossmatch 08/12/17 08/12/17 08/12/17 05:50 05:50 05:50 WBC 20.1 H RBC 3.06 L Hgb 9.3 L Hct 27.9 L MCV MCH MCHC RDW 18.4 H Plt Count 471 H Lymph % (Auto) [place] % (Auto) [place] # Seg Neutrophils % Seg Neuts % (Manual) 85.0 H Lymphocytes % (Manual) 8.0 L Monocytes % (Manual) Nucleated RBC % Seg Neutrophils # Seg Neutrophils # Man 17.1 H Lymphocytes # (Manual) Monocytes # (Manual) 1.0 H Eosinophils # (Manual) Basophils # (Manual) PT 15.2 H INR 1.14 H POC ABG pH ABG pH POC ABG pCO2 POC ABG pO2 ABG pO2 ABG O2 Saturation ABG Base Excess ABG Hemoglobin Oxyhemoglobin Sodium Potassium Chloride Carbon Dioxide BUN Creatinine Glucose POC Glucose Calcium Phosphorus Magnesium Iron TIBC Ferritin Total Bilirubin AST ALT Alkaline Phosphatase Total Creatine Kinase Troponin T C-Reactive Protein 28.90 H Total Protein Albumin Triglycerides HDL Cholesterol Miscellaneous Test Crossmatch 08/12/17 08/13/17 08/13/17 16:23 06:14 06:14 WBC 21.8 H RBC 3.11 L Hgb 9.4 L Hct 28.2 L MCV MCH MCHC RDW 18.2 H Plt Count 492 H Lymph % (Auto) [place] % (Auto) [place] # Seg Neutrophils % Seg Neuts % (Manual) 73.0 H Lymphocytes % (Manual) 2.0 L Monocytes % (Manual) 15 H Nucleated RBC % Seg Neutrophils # Seg Neutrophils # Man 15.9 H Lymphocytes # (Manual) 0.4 L Monocytes # (Manual) 2.4 H Eosinophils # (Manual) Basophils # (Manual) PT INR POC ABG pH ABG pH POC ABG pCO2 POC ABG pO2 ABG pO2 ABG O2 Saturation ABG Base Excess ABG Hemoglobin Oxyhemoglobin Sodium Potassium Chloride 96.2 L Carbon Dioxide BUN 28 H Creatinine 5.6 H Glucose 114 H POC Glucose Calcium Phosphorus Magnesium Iron TIBC Ferritin Total Bilirubin AST ALT Alkaline Phosphatase Total Creatine Kinase Troponin T C-Reactive Protein 26.10 H Total Protein Albumin Triglycerides HDL Cholesterol Miscellaneous Test Crossmatch 08/13/17 08/14/17 08/14/17 16:39 04:00 04:00 WBC 22.1 H RBC 3.25 L Hgb 9.9 L Hct 29.5 L MCV MCH MCHC RDW 17.9 H Plt Count 525 H Lymph % (Auto) [place] % (Auto) [place] # Seg Neutrophils % Seg Neuts % (Manual) 74.0 H Lymphocytes % (Manual) 8.0 L Monocytes % (Manual) 12.0 H Nucleated RBC % Seg Neutrophils # Seg Neutrophils # Man 16.4 H Lymphocytes # (Manual) Monocytes # (Manual) 2.7 H Eosinophils # (Manual) Basophils # (Manual) PT INR POC ABG pH ABG pH POC ABG pCO2 POC ABG pO2 ABG pO2 ABG O2 Saturation ABG Base Excess ABG Hemoglobin Oxyhemoglobin Sodium 134 L Potassium 3.3 L Chloride 93.3 L Carbon Dioxide BUN 27 H Creatinine 6.0 H Glucose 152 H POC Glucose 151 H Calcium Phosphorus Magnesium Iron TIBC Ferritin Total Bilirubin AST ALT Alkaline Phosphatase Total Creatine Kinase Troponin T C-Reactive Protein Total Protein Albumin Triglycerides HDL Cholesterol Miscellaneous Test Crossmatch 08/15/17 08/16/17 08/16/17 09:10 09:50 09:50 WBC 31.1 H RBC 3.21 L Hgb 9.6 L Hct 29.3 L MCV MCH MCHC RDW 18.1 H Plt Count 642 H Lymph % (Auto) [place] % (Auto) [place] # Seg Neutrophils % Seg Neuts % (Manual) 74.0 H Lymphocytes % (Manual) 4.0 L Monocytes % (Manual) 9.0 H Nucleated RBC % Seg Neutrophils # Seg Neutrophils # Man 23.0 H Lymphocytes # (Manual) Monocytes # (Manual) 2.8 H Eosinophils # (Manual) Basophils # (Manual) PT INR POC ABG pH ABG pH POC ABG pCO2 POC ABG pO2 ABG pO2 ABG O2 Saturation ABG Base Excess ABG Hemoglobin Oxyhemoglobin Sodium 136 L 136 L Potassium 3.5 L Chloride 97.6 L 94.9 L Carbon Dioxide BUN 27 H 28 H Creatinine 5.6 H 5.5 H Glucose 117 H 103 H POC Glucose Calcium Phosphorus Magnesium Iron TIBC Ferritin Total Bilirubin AST ALT Alkaline Phosphatase 137 H Total Creatine Kinase Troponin T C-Reactive Protein Total Protein 5.4 L Albumin 1.5 L Triglycerides HDL Cholesterol Miscellaneous Test Crossmatch 08/16/17 08/17/17 08/17/17 09:50 05:00 06:26 WBC RBC Hgb Hct MCV MCH MCHC RDW Plt Count Lymph % (Auto) [place] % (Auto) [place] # Seg Neutrophils % Seg Neuts % (Manual) Lymphocytes % (Manual) Monocytes % (Manual) Nucleated RBC % Seg Neutrophils # Seg Neutrophils # Man Lymphocytes # (Manual) Monocytes # (Manual) Eosinophils # (Manual) Basophils # (Manual) PT INR POC ABG pH ABG pH POC ABG pCO2 POC ABG pO2 ABG pO2 ABG O2 Saturation ABG Base Excess ABG Hemoglobin Oxyhemoglobin Sodium 134 L Potassium 3.0 L Chloride 97.8 L Carbon Dioxide BUN 30 H Creatinine 5.3 H Glucose 147 H POC Glucose 165 H Calcium 7.5 L Phosphorus Magnesium Iron TIBC Ferritin Total Bilirubin AST ALT Alkaline Phosphatase Total Creatine Kinase Troponin T C-Reactive Protein 32.30 H Total Protein Albumin Triglycerides HDL Cholesterol Miscellaneous Test Crossmatch 08/17/17 08/17/17 08/17/17 10:56 11:20 11:20 WBC 39.1 H RBC 3.10 L Hgb 9.2 L Hct 28.6 L MCV MCH MCHC RDW 18.3 H Plt Count 580 H Lymph % (Auto) [place] % (Auto) [place] # Seg Neutrophils % Seg Neuts % (Manual) 89.5 H Lymphocytes % (Manual) 3.5 L Monocytes % (Manual) Nucleated RBC % Seg Neutrophils # Seg Neutrophils # Man 35.0 H Lymphocytes # (Manual) Monocytes # (Manual) 2.5 H Eosinophils # (Manual) Basophils # (Manual) 0.2 H PT INR POC ABG pH 7.464 H ABG pH POC ABG pCO2 34.1 L POC ABG pO2 75 L ABG pO2 ABG O2 Saturation ABG Base Excess ABG Hemoglobin Oxyhemoglobin Sodium Potassium Chloride Carbon Dioxide BUN Creatinine Glucose POC Glucose Calcium Phosphorus Magnesium Iron TIBC Ferritin Total Bilirubin AST ALT Alkaline Phosphatase Total Creatine Kinase Troponin T C-Reactive Protein Total Protein Albumin Triglycerides HDL Cholesterol Miscellaneous Test Flexitest 1 H Crossmatch 08/17/17 08/17/17 08/17/17 11:20 16:57 20:20 WBC 34.4 H RBC 2.81 L Hgb 8.4 L Hct 26.0 L MCV MCH MCHC RDW 17.8 H Plt Count 455 H Lymph % (Auto) [place] % (Auto) [place] # Seg Neutrophils % Seg Neuts % (Manual) Lymphocytes % (Manual) 3.5 L Monocytes % (Manual) Nucleated RBC % 5.0 H Seg Neutrophils # Seg Neutrophils # Man 16.5 H Lymphocytes # (Manual) Monocytes # (Manual) 1.0 H Eosinophils # (Manual) Basophils # (Manual) PT 16.0 H INR 1.29 H POC ABG pH ABG pH POC ABG pCO2 POC ABG pO2 ABG pO2 ABG O2 Saturation ABG Base Excess ABG Hemoglobin Oxyhemoglobin Sodium 135 L Potassium 2.9 L* Chloride Carbon Dioxide 20 L BUN 32 H Creatinine 5.4 H Glucose 129 H POC Glucose Calcium 7.5 L Phosphorus Magnesium 1.50 L Iron TIBC Ferritin Total Bilirubin AST 85 H ALT Alkaline Phosphatase Total Creatine Kinase Troponin T C-Reactive Protein Total Protein 4.0 L D Albumin 1.6 L Triglycerides HDL Cholesterol Miscellaneous Test Crossmatch 08/17/17 08/17/17 08/18/17 20:54 23:47 04:26 WBC RBC Hgb Hct MCV MCH MCHC RDW Plt Count Lymph % (Auto) [place] % (Auto) [place] # Seg Neutrophils % Seg Neuts % (Manual) Lymphocytes % (Manual) Monocytes % (Manual) Nucleated RBC % Seg Neutrophils # Seg Neutrophils # Man Lymphocytes # (Manual) Monocytes # (Manual) Eosinophils # (Manual) Basophils # (Manual) PT INR POC ABG pH 7.557 H ABG pH POC ABG pCO2 23.1 L 29.0 L POC ABG pO2 187 H 148 H ABG pO2 ABG O2 Saturation ABG Base Excess ABG Hemoglobin Oxyhemoglobin Sodium Potassium Chloride Carbon Dioxide BUN Creatinine Glucose POC Glucose 188 H Calcium Phosphorus Magnesium Iron TIBC Ferritin Total Bilirubin AST ALT Alkaline Phosphatase Total Creatine Kinase Troponin T C-Reactive Protein Total Protein Albumin Triglycerides HDL Cholesterol Miscellaneous Test Crossmatch 08/18/17 08/18/17 08/18/17 05:51 11:44 17:07 WBC RBC Hgb Hct MCV MCH MCHC RDW Plt Count Lymph % (Auto) [place] % (Auto) [place] # Seg Neutrophils % Seg Neuts % (Manual) Lymphocytes % (Manual) Monocytes % (Manual) Nucleated RBC % Seg Neutrophils # Seg Neutrophils # Man Lymphocytes # (Manual) Monocytes # (Manual) Eosinophils # (Manual) Basophils # (Manual) PT INR POC ABG pH ABG pH POC ABG pCO2 POC ABG pO2 ABG pO2 ABG O2 Saturation ABG Base Excess ABG Hemoglobin Oxyhemoglobin Sodium Potassium Chloride Carbon Dioxide BUN Creatinine Glucose POC Glucose 202 H 195 H 182 H Calcium Phosphorus Magnesium Iron TIBC Ferritin Total Bilirubin AST ALT Alkaline Phosphatase Total Creatine Kinase Troponin T C-Reactive Protein Total Protein Albumin Triglycerides HDL Cholesterol Miscellaneous Test Crossmatch 08/18/17 08/18/17 08/18/17 23:45 Unknown Unknown WBC 39.0 H RBC 2.84 L Hgb 8.4 L Hct 26.5 L MCV MCH MCHC RDW 18.0 H Plt Count 476 H Lymph % (Auto) [place] % (Auto) [place] # Seg Neutrophils % Seg Neuts % (Manual) Lymphocytes % (Manual) 7.0 L Monocytes % (Manual) 10.0 H Nucleated RBC % 3.0 H Seg Neutrophils # Seg Neutrophils # Man 15.6 H Lymphocytes # (Manual) Monocytes # (Manual) 3.9 H Eosinophils # (Manual) Basophils # (Manual) PT INR POC ABG pH ABG pH POC ABG pCO2 POC ABG pO2 ABG pO2 ABG O2 Saturation ABG Base Excess ABG Hemoglobin Oxyhemoglobin Sodium Potassium Chloride Carbon Dioxide 19 L BUN 34 H Creatinine 5.6 H Glucose 201 H POC Glucose 163 H Calcium 7.8 L Phosphorus 1.90 L D Magnesium 1.60 L Iron TIBC Ferritin Total Bilirubin AST ALT Alkaline Phosphatase Total Creatine Kinase Troponin T C-Reactive Protein Total Protein Albumin Triglycerides HDL Cholesterol Miscellaneous Test Crossmatch 08/19/17 08/19/17 08/19/17 04:18 05:00 05:00 WBC 40.0 H RBC 2.46 L Hgb 7.3 L Hct 22.6 L MCV MCH MCHC RDW 18.1 H Plt Count Lymph % (Auto) [place] % (Auto) [place] # Seg Neutrophils % Seg Neuts % (Manual) Lymphocytes % (Manual) 8.0 L Monocytes % (Manual) Nucleated RBC % 2.0 H Seg Neutrophils # Seg Neutrophils # Man 16.4 H Lymphocytes # (Manual) Monocytes # (Manual) 1.2 H Eosinophils # (Manual) 1.2 H Basophils # (Manual) PT INR POC ABG pH 7.463 H ABG pH POC ABG pCO2 29.7 L POC ABG pO2 134 H ABG pO2 ABG O2 Saturation ABG Base Excess ABG Hemoglobin Oxyhemoglobin Sodium Potassium 5.1 H D Chloride Carbon Dioxide 20 L BUN 40 H Creatinine 5.3 H Glucose 128 H POC Glucose Calcium 7.8 L Phosphorus 1.90 L Magnesium Iron TIBC Ferritin Total Bilirubin AST ALT Alkaline Phosphatase Total Creatine Kinase Troponin T C-Reactive Protein Total Protein Albumin Triglycerides HDL Cholesterol Miscellaneous Test Crossmatch 08/19/17 08/19/17 08/19/17 05:19 07:37 09:52 WBC 45.0 H* RBC 2.50 L Hgb 7.5 L Hct 24.5 L MCV 98 H MCH MCHC RDW 18.4 H Plt Count Lymph % (Auto) [place] % (Auto) [place] # Seg Neutrophils % Seg Neuts % (Manual) 81.5 H Lymphocytes % (Manual) 4.0 L Monocytes % (Manual) Nucleated RBC % 1.0 H Seg Neutrophils # Seg Neutrophils # Man 36.7 H Lymphocytes # (Manual) Monocytes # (Manual) Eosinophils # (Manual) Basophils # (Manual) PT INR POC ABG pH ABG pH POC ABG pCO2 POC ABG pO2 ABG pO2 ABG O2 Saturation ABG Base Excess ABG Hemoglobin Oxyhemoglobin Sodium Potassium Chloride Carbon Dioxide BUN Creatinine Glucose POC Glucose 142 H Calcium Phosphorus Magnesium Iron TIBC Ferritin Total Bilirubin AST ALT Alkaline Phosphatase Total Creatine Kinase Troponin T C-Reactive Protein 34.20 H Total Protein Albumin Triglycerides HDL Cholesterol Miscellaneous Test Crossmatch 08/19/17 08/19/17 08/20/17 11:16 18:12 00:35 WBC RBC Hgb Hct MCV MCH MCHC RDW Plt Count Lymph % (Auto) [place] % (Auto) [place] # Seg Neutrophils % Seg Neuts % (Manual) Lymphocytes % (Manual) Monocytes % (Manual) Nucleated RBC % Seg Neutrophils # Seg Neutrophils # Man Lymphocytes # (Manual) Monocytes # (Manual) Eosinophils # (Manual) Basophils # (Manual) PT INR POC ABG pH ABG pH POC ABG pCO2 POC ABG pO2 ABG pO2 ABG O2 Saturation ABG Base Excess ABG Hemoglobin Oxyhemoglobin Sodium Potassium Chloride Carbon Dioxide BUN Creatinine Glucose POC Glucose 143 H 137 H 164 H Calcium Phosphorus Magnesium Iron TIBC Ferritin Total Bilirubin AST ALT Alkaline Phosphatase Total Creatine Kinase Troponin T C-Reactive Protein Total Protein Albumin Triglycerides HDL Cholesterol Miscellaneous Test Crossmatch 08/20/17 08/20/17 08/20/17 03:20 03:20 04:00 WBC 48.0 H* RBC 2.55 L Hgb 7.6 L Hct 23.4 L MCV MCH MCHC RDW 18.4 H Plt Count Lymph % (Auto) [place] % (Auto) [place] # Seg Neutrophils % Seg Neuts % (Manual) 90.0 H Lymphocytes % (Manual) 3.0 L Monocytes % (Manual) Nucleated RBC % Seg Neutrophils # Seg Neutrophils # Man 43.2 H Lymphocytes # (Manual) Monocytes # (Manual) 1.4 H Eosinophils # (Manual) 0.5 H Basophils # (Manual) PT INR POC ABG pH 7.499 H ABG pH POC ABG pCO2 29.1 L POC ABG pO2 ABG pO2 ABG O2 Saturation ABG Base Excess ABG Hemoglobin Oxyhemoglobin Sodium 135 L Potassium Chloride Carbon Dioxide BUN 28 H Creatinine 4.0 H Glucose 140 H POC Glucose Calcium 8.0 L Phosphorus 1.70 L Magnesium 1.60 L Iron TIBC Ferritin Total Bilirubin AST ALT Alkaline Phosphatase Total Creatine Kinase Troponin T C-Reactive Protein Total Protein Albumin Triglycerides HDL Cholesterol Miscellaneous Test Crossmatch 08/20/17 08/20/17 08/20/17 05:02 12:05 13:12 WBC RBC Hgb Hct MCV MCH MCHC RDW Plt Count Lymph % (Auto) [place] % (Auto) [place] # Seg Neutrophils % Seg Neuts % (Manual) Lymphocytes % (Manual) Monocytes % (Manual) Nucleated RBC % Seg Neutrophils # Seg Neutrophils # Man Lymphocytes # (Manual) Monocytes # (Manual) Eosinophils # (Manual) Basophils # (Manual) PT INR POC ABG pH 7.537 H ABG pH POC ABG pCO2 27.9 L POC ABG pO2 79 L ABG pO2 ABG O2 Saturation ABG Base Excess ABG Hemoglobin Oxyhemoglobin Sodium Potassium Chloride Carbon Dioxide BUN Creatinine Glucose POC Glucose 158 H 203 H Calcium Phosphorus Magnesium Iron TIBC Ferritin Total Bilirubin AST ALT Alkaline Phosphatase Total Creatine Kinase Troponin T C-Reactive Protein Total Protein Albumin Triglycerides HDL Cholesterol Miscellaneous Test Crossmatch 08/20/17 08/21/17 08/21/17 17:13 00:47 03:14 WBC RBC Hgb Hct MCV MCH MCHC RDW Plt Count Lymph % (Auto) [place] % (Auto) [place] # Seg Neutrophils % Seg Neuts % (Manual) Lymphocytes % (Manual) Monocytes % (Manual) Nucleated RBC % Seg Neutrophils # Seg Neutrophils # Man Lymphocytes # (Manual) Monocytes # (Manual) Eosinophils # (Manual) Basophils # (Manual) PT INR POC ABG pH 7.481 H ABG pH POC ABG pCO2 29.6 L POC ABG pO2 ABG pO2 ABG O2 Saturation ABG Base Excess ABG Hemoglobin Oxyhemoglobin Sodium Potassium Chloride Carbon Dioxide BUN Creatinine Glucose POC Glucose 188 H 109 H Calcium Phosphorus Magnesium Iron TIBC Ferritin Total Bilirubin AST ALT Alkaline Phosphatase Total Creatine Kinase Troponin T C-Reactive Protein Total Protein Albumin Triglycerides HDL Cholesterol Miscellaneous Test Crossmatch 08/21/17 08/21/17 08/21/17 05:05 06:50 06:50 WBC 44.7 H* RBC 2.41 L Hgb 7.1 L Hct 22.1 L MCV MCH MCHC RDW 18.3 H Plt Count Lymph % (Auto) [place] % (Auto) [place] # Seg Neutrophils % Seg Neuts % (Manual) 89.0 H Lymphocytes % (Manual) 0 L Monocytes % (Manual) Nucleated RBC % 1.0 H Seg Neutrophils # Seg Neutrophils # Man 39.8 H Lymphocytes # (Manual) 0.0 L Monocytes # (Manual) 1.3 H Eosinophils # (Manual) Basophils # (Manual) PT INR POC ABG pH ABG pH POC ABG pCO2 POC ABG pO2 ABG pO2 ABG O2 Saturation ABG Base Excess ABG Hemoglobin Oxyhemoglobin Sodium 135 L Potassium Chloride Carbon Dioxide BUN 39 H Creatinine 4.4 H Glucose 147 H POC Glucose 166 H Calcium 8.1 L Phosphorus Magnesium Iron TIBC Ferritin Total Bilirubin AST ALT < 5 L Alkaline Phosphatase 164 H Total Creatine Kinase Troponin T C-Reactive Protein Total Protein 4.7 L Albumin 1.4 L Triglycerides HDL Cholesterol Miscellaneous Test Crossmatch 08/21/17 08/21/17 08/21/17 08:00 12:21 17:02 WBC RBC Hgb Hct MCV MCH MCHC RDW Plt Count Lymph % (Auto) [place] % (Auto) [place] # Seg Neutrophils % Seg Neuts % (Manual) Lymphocytes % (Manual) Monocytes % (Manual) Nucleated RBC % Seg Neutrophils # Seg Neutrophils # Man Lymphocytes # (Manual) Monocytes # (Manual) Eosinophils # (Manual) Basophils # (Manual) PT INR POC ABG pH ABG pH POC ABG pCO2 POC ABG pO2 ABG pO2 ABG O2 Saturation ABG Base Excess ABG Hemoglobin Oxyhemoglobin Sodium Potassium Chloride Carbon Dioxide BUN Creatinine Glucose POC Glucose 147 H 135 H Calcium Phosphorus Magnesium Iron TIBC Ferritin Total Bilirubin AST ALT Alkaline Phosphatase Total Creatine Kinase Troponin T C-Reactive Protein Total Protein Albumin Triglycerides HDL Cholesterol Miscellaneous Test Crossmatch See Detail 08/21/17 08/22/17 08/22/17 23:38 03:40 03:40 WBC 42.5 H* RBC 2.88 L Hgb 8.5 L Hct 26.3 L MCV MCH MCHC RDW 17.9 H Plt Count Lymph % (Auto) [place] % (Auto) [place] # Seg Neutrophils % Seg Neuts % (Manual) Lymphocytes % (Manual) 5.0 L Monocytes % (Manual) Nucleated RBC % Seg Neutrophils # Seg Neutrophils # Man 19.6 H Lymphocytes # (Manual) Monocytes # (Manual) 2.6 H Eosinophils # (Manual) Basophils # (Manual) PT INR POC ABG pH ABG pH POC ABG pCO2 POC ABG pO2 ABG pO2 ABG O2 Saturation ABG Base Excess ABG Hemoglobin Oxyhemoglobin Sodium Potassium 3.3 L D Chloride Carbon Dioxide BUN 27 H Creatinine 2.9 H Glucose 144 H POC Glucose 251 H Calcium 8.0 L Phosphorus 2.40 L Magnesium Iron TIBC Ferritin Total Bilirubin AST ALT Alkaline Phosphatase Total Creatine Kinase Troponin T C-Reactive Protein Total Protein Albumin Triglycerides HDL Cholesterol Miscellaneous Test Crossmatch 08/22/17 08/22/17 08/22/17 06:37 08:50 11:25 WBC RBC Hgb Hct MCV MCH MCHC RDW Plt Count Lymph % (Auto) [place] % (Auto) [place] # Seg Neutrophils % Seg Neuts % (Manual) Lymphocytes % (Manual) Monocytes % (Manual) Nucleated RBC % Seg Neutrophils # Seg Neutrophils # Man Lymphocytes # (Manual) Monocytes # (Manual) Eosinophils # (Manual) Basophils # (Manual) PT INR POC ABG pH ABG pH POC ABG pCO2 POC ABG pO2 ABG pO2 ABG O2 Saturation ABG Base Excess ABG Hemoglobin Oxyhemoglobin Sodium Potassium Chloride Carbon Dioxide BUN Creatinine Glucose POC Glucose 152 H 175 H Calcium Phosphorus Magnesium Iron TIBC Ferritin Total Bilirubin AST ALT Alkaline Phosphatase Total Creatine Kinase Troponin T C-Reactive Protein Total Protein Albumin Triglycerides HDL Cholesterol Miscellaneous Test Flexitest 1 H Crossmatch 08/22/17 08/22/17 08/22/17 16:25 17:56 23:03 WBC RBC Hgb Hct MCV MCH MCHC RDW Plt Count Lymph % (Auto) [place] % (Auto) [place] # Seg Neutrophils % Seg Neuts % (Manual) Lymphocytes % (Manual) Monocytes % (Manual) Nucleated RBC % Seg Neutrophils # Seg Neutrophils # Man Lymphocytes # (Manual) Monocytes # (Manual) Eosinophils # (Manual) Basophils # (Manual) PT INR POC ABG pH ABG pH POC ABG pCO2 POC ABG pO2 ABG pO2 ABG O2 Saturation ABG Base Excess ABG Hemoglobin Oxyhemoglobin Sodium Potassium Chloride Carbon Dioxide BUN Creatinine Glucose POC Glucose 232 H 192 H Calcium Phosphorus Magnesium Iron TIBC Ferritin Total Bilirubin AST ALT Alkaline Phosphatase Total Creatine Kinase Troponin T C-Reactive Protein 30.70 H Total Protein Albumin Triglycerides HDL Cholesterol Miscellaneous Test Crossmatch 08/23/17 08/23/17 08/23/17 05:36 08:50 12:14 WBC RBC Hgb Hct MCV MCH MCHC RDW Plt Count Lymph % (Auto) [place] % (Auto) [place] # Seg Neutrophils % Seg Neuts % (Manual) Lymphocytes % (Manual) Monocytes % (Manual) Nucleated RBC % Seg Neutrophils # Seg Neutrophils # Man Lymphocytes # (Manual) Monocytes # (Manual) Eosinophils # (Manual) Basophils # (Manual) PT INR POC ABG pH ABG pH POC ABG pCO2 POC ABG pO2 ABG pO2 ABG O2 Saturation ABG Base Excess ABG Hemoglobin Oxyhemoglobin Sodium Potassium Chloride 107.1 H Carbon Dioxide BUN 49 H Creatinine 3.3 H Glucose 172 H POC Glucose 206 H 238 H Calcium Phosphorus Magnesium 2.40 H Iron TIBC Ferritin Total Bilirubin AST ALT Alkaline Phosphatase Total Creatine Kinase Troponin T C-Reactive Protein Total Protein Albumin Triglycerides HDL Cholesterol Miscellaneous Test Crossmatch 08/23/17 08/23/17 08/24/17 17:21 23:13 04:00 WBC 34.2 H RBC 2.86 L Hgb 8.4 L Hct 25.9 L MCV MCH MCHC RDW 17.9 H Plt Count Lymph % (Auto) [place] % (Auto) [place] # Seg Neutrophils % Seg Neuts % (Manual) 85.0 H Lymphocytes % (Manual) 0.5 L Monocytes % (Manual) Nucleated RBC % 1.0 H Seg Neutrophils # Seg Neutrophils # Man 29.1 H Lymphocytes # (Manual) 0.2 L Monocytes # (Manual) 2.4 H Eosinophils # (Manual) Basophils # (Manual) PT INR POC ABG pH ABG pH POC ABG pCO2 POC ABG pO2 ABG pO2 ABG O2 Saturation ABG Base Excess ABG Hemoglobin Oxyhemoglobin Sodium Potassium Chloride Carbon Dioxide BUN Creatinine Glucose POC Glucose 226 H 183 H Calcium Phosphorus Magnesium Iron TIBC Ferritin Total Bilirubin AST ALT Alkaline Phosphatase Total Creatine Kinase Troponin T C-Reactive Protein Total Protein Albumin Triglycerides HDL Cholesterol Miscellaneous Test Crossmatch 08/24/17 08/24/17 08/24/17 05:06 09:30 12:04 WBC RBC Hgb Hct MCV MCH MCHC RDW Plt Count Lymph % (Auto) [place] % (Auto) [place] # Seg Neutrophils % Seg Neuts % (Manual) Lymphocytes % (Manual) Monocytes % (Manual) Nucleated RBC % Seg Neutrophils # Seg Neutrophils # Man Lymphocytes # (Manual) Monocytes # (Manual) Eosinophils # (Manual) Basophils # (Manual) PT INR POC ABG pH ABG pH POC ABG pCO2 POC ABG pO2 ABG pO2 ABG O2 Saturation ABG Base Excess ABG Hemoglobin Oxyhemoglobin Sodium Potassium Chloride Carbon Dioxide BUN 46 H Creatinine 2.5 H Glucose 176 H POC Glucose 201 H 181 H Calcium Phosphorus Magnesium Iron TIBC Ferritin Total Bilirubin AST ALT Alkaline Phosphatase Total Creatine Kinase Troponin T C-Reactive Protein Total Protein Albumin Triglycerides HDL Cholesterol Miscellaneous Test Crossmatch 08/24/17 08/24/17 08/25/17 18:04 23:05 05:05 WBC RBC Hgb Hct MCV MCH MCHC RDW Plt Count Lymph % (Auto) [place] % (Auto) [place] # Seg Neutrophils % Seg Neuts % (Manual) Lymphocytes % (Manual) Monocytes % (Manual) Nucleated RBC % Seg Neutrophils # Seg Neutrophils # Man Lymphocytes # (Manual) Monocytes # (Manual) Eosinophils # (Manual) Basophils # (Manual) PT INR POC ABG pH ABG pH POC ABG pCO2 POC ABG pO2 ABG pO2 ABG O2 Saturation ABG Base Excess ABG Hemoglobin Oxyhemoglobin Sodium Potassium Chloride Carbon Dioxide BUN Creatinine Glucose POC Glucose 189 H 175 H 190 H Calcium Phosphorus Magnesium Iron TIBC Ferritin Total Bilirubin AST ALT Alkaline Phosphatase Total Creatine Kinase Troponin T C-Reactive Protein Total Protein Albumin Triglycerides HDL Cholesterol Miscellaneous Test Crossmatch 08/25/17 08/25/17 08/26/17 07:02 11:53 05:30 WBC 33.5 H RBC 2.47 L Hgb 7.3 L Hct 23.0 L MCV MCH MCHC RDW 21.3 H Plt Count Lymph % (Auto) [place] % (Auto) [place] # Seg Neutrophils % Seg Neuts % (Manual) 92.0 H Lymphocytes % (Manual) 1.0 L Monocytes % (Manual) Nucleated RBC % Seg Neutrophils # Seg Neutrophils # Man 30.8 H Lymphocytes # (Manual) 0.3 L Monocytes # (Manual) Eosinophils # (Manual) Basophils # (Manual) PT INR POC ABG pH ABG pH POC ABG pCO2 POC ABG pO2 ABG pO2 ABG O2 Saturation ABG Base Excess ABG Hemoglobin Oxyhemoglobin Sodium Potassium Chloride Carbon Dioxide BUN 32 H Creatinine 5.0 H D Glucose 117 H POC Glucose 191 H Calcium 8.0 L Phosphorus Magnesium Iron TIBC Ferritin Total Bilirubin AST ALT Alkaline Phosphatase Total Creatine Kinase Troponin T C-Reactive Protein Total Protein Albumin Triglycerides HDL Cholesterol Miscellaneous Test Crossmatch 08/26/17 08/26/17 08/26/17 05:30 06:44 13:26 WBC RBC Hgb Hct MCV MCH MCHC RDW Plt Count Lymph % (Auto) [place] % (Auto) [place] # Seg Neutrophils % Seg Neuts % (Manual) Lymphocytes % (Manual) Monocytes % (Manual) Nucleated RBC % Seg Neutrophils # Seg Neutrophils # Man Lymphocytes # (Manual) Monocytes # (Manual) Eosinophils # (Manual) Basophils # (Manual) PT INR POC ABG pH ABG pH POC ABG pCO2 POC ABG pO2 ABG pO2 ABG O2 Saturation ABG Base Excess ABG Hemoglobin Oxyhemoglobin Sodium Potassium 5.2 H Chloride Carbon Dioxide BUN 80 H Creatinine 3.4 H Glucose 193 H POC Glucose 232 H 207 H Calcium 8.3 L Phosphorus 6.80 H D Magnesium 2.60 H Iron TIBC Ferritin Total Bilirubin AST 135 H ALT Alkaline Phosphatase 211 H Total Creatine Kinase Troponin T C-Reactive Protein Total Protein 4.8 L Albumin 2.0 L Triglycerides HDL Cholesterol Miscellaneous Test Crossmatch 08/27/17 08/27/17 08/27/17 01:08 06:20 06:20 WBC 35.0 H RBC 2.75 L Hgb 8.4 L Hct 25.1 L MCV MCH MCHC RDW 21.8 H Plt Count Lymph % (Auto) [place] % (Auto) [place] # Seg Neutrophils % Seg Neuts % (Manual) Lymphocytes % (Manual) 4.5 L Monocytes % (Manual) Nucleated RBC % Seg Neutrophils # Seg Neutrophils # Man 31.9 H Lymphocytes # (Manual) Monocytes # (Manual) 1.2 H Eosinophils # (Manual) Basophils # (Manual) PT INR POC ABG pH ABG pH POC ABG pCO2 POC ABG pO2 ABG pO2 ABG O2 Saturation ABG Base Excess ABG Hemoglobin Oxyhemoglobin Sodium Potassium Chloride Carbon Dioxide BUN 61 H Creatinine 2.6 H Glucose 184 H POC Glucose 146 H Calcium Phosphorus 4.90 H D Magnesium Iron TIBC Ferritin Total Bilirubin AST ALT Alkaline Phosphatase Total Creatine Kinase Troponin T C-Reactive Protein Total Protein Albumin Triglycerides HDL Cholesterol Miscellaneous Test Crossmatch 08/27/17 08/27/17 08/27/17 07:01 09:17 12:52 WBC RBC Hgb Hct MCV MCH MCHC RDW Plt Count Lymph % (Auto) [place] % (Auto) [place] # Seg Neutrophils % Seg Neuts % (Manual) Lymphocytes % (Manual) Monocytes % (Manual) Nucleated RBC % Seg Neutrophils # Seg Neutrophils # Man Lymphocytes # (Manual) Monocytes # (Manual) Eosinophils # (Manual) Basophils # (Manual) PT INR POC ABG pH ABG pH POC ABG pCO2 POC ABG pO2 ABG pO2 ABG O2 Saturation ABG Base Excess ABG Hemoglobin Oxyhemoglobin Sodium Potassium Chloride Carbon Dioxide BUN Creatinine Glucose POC Glucose 165 H 198 H 218 H Calcium Phosphorus Magnesium Iron TIBC Ferritin Total Bilirubin AST ALT Alkaline Phosphatase Total Creatine Kinase Troponin T C-Reactive Protein Total Protein Albumin Triglycerides HDL Cholesterol Miscellaneous Test Crossmatch 08/27/17 08/28/17 08/28/17 17:27 02:13 06:46 WBC RBC Hgb Hct MCV MCH MCHC RDW Plt Count Lymph % (Auto) [place] % (Auto) [place] # Seg Neutrophils % Seg Neuts % (Manual) Lymphocytes % (Manual) Monocytes % (Manual) Nucleated RBC % Seg Neutrophils # Seg Neutrophils # Man Lymphocytes # (Manual) Monocytes # (Manual) Eosinophils # (Manual) Basophils # (Manual) PT INR POC ABG pH ABG pH POC ABG pCO2 POC ABG pO2 ABG pO2 ABG O2 Saturation ABG Base Excess ABG Hemoglobin Oxyhemoglobin Sodium Potassium Chloride Carbon Dioxide BUN Creatinine Glucose POC Glucose 151 H 155 H 230 H Calcium Phosphorus Magnesium Iron TIBC Ferritin Total Bilirubin AST ALT Alkaline Phosphatase Total Creatine Kinase Troponin T C-Reactive Protein Total Protein Albumin Triglycerides HDL Cholesterol Miscellaneous Test Crossmatch 08/28/17 08/28/17 08/28/17 06:53 06:53 08:19 WBC 31.1 H RBC 2.26 L Hgb 6.8 L Hct 20.9 L MCV MCH MCHC RDW 21.7 H Plt Count Lymph % (Auto) [place] % (Auto) [place] # Seg Neutrophils % Seg Neuts % (Manual) 83.0 H Lymphocytes % (Manual) 4.0 L Monocytes % (Manual) Nucleated RBC % Seg Neutrophils # Seg Neutrophils # Man 25.8 H Lymphocytes # (Manual) Monocytes # (Manual) Eosinophils # (Manual) Basophils # (Manual) PT INR POC ABG pH ABG pH POC ABG pCO2 POC ABG pO2 ABG pO2 ABG O2 Saturation ABG Base Excess ABG Hemoglobin Oxyhemoglobin Sodium Potassium Chloride Carbon Dioxide BUN 81 H Creatinine 3.4 H Glucose 218 H POC Glucose 239 H Calcium Phosphorus 4.90 H Magnesium Iron TIBC Ferritin Total Bilirubin AST ALT Alkaline Phosphatase Total Creatine Kinase Troponin T C-Reactive Protein Total Protein Albumin Triglycerides HDL Cholesterol Miscellaneous Test Crossmatch 08/28/17 08/28/17 08/28/17 11:56 13:05 13:29 WBC RBC Hgb Hct MCV MCH MCHC RDW Plt Count Lymph % (Auto) [place] % (Auto) [place] # Seg Neutrophils % Seg Neuts % (Manual) Lymphocytes % (Manual) Monocytes % (Manual) Nucleated RBC % Seg Neutrophils # Seg Neutrophils # Man Lymphocytes # (Manual) Monocytes # (Manual) Eosinophils # (Manual) Basophils # (Manual) PT 16.7 H INR 1.29 H POC ABG pH ABG pH POC ABG pCO2 POC ABG pO2 338 H ABG pO2 ABG O2 Saturation ABG Base Excess ABG Hemoglobin Oxyhemoglobin Sodium Potassium Chloride Carbon Dioxide BUN Creatinine Glucose POC Glucose Calcium Phosphorus Magnesium Iron TIBC Ferritin Total Bilirubin AST ALT Alkaline Phosphatase Total Creatine Kinase Troponin T C-Reactive Protein Total Protein Albumin Triglycerides HDL Cholesterol Miscellaneous Test Crossmatch See Detail 08/28/17 08/28/17 08/29/17 16:22 19:20 04:24 WBC RBC Hgb Hct MCV MCH MCHC RDW Plt Count Lymph % (Auto) [place] % (Auto) [place] # Seg Neutrophils % Seg Neuts % (Manual) Lymphocytes % (Manual) Monocytes % (Manual) Nucleated RBC % Seg Neutrophils # Seg Neutrophils # Man Lymphocytes # (Manual) Monocytes # (Manual) Eosinophils # (Manual) Basophils # (Manual) PT INR POC ABG pH 7.469 H ABG pH POC ABG pCO2 POC ABG pO2 240 H ABG pO2 ABG O2 Saturation ABG Base Excess ABG Hemoglobin Oxyhemoglobin Sodium Potassium Chloride Carbon Dioxide BUN Creatinine Glucose POC Glucose 209 H 195 H Calcium Phosphorus Magnesium Iron TIBC Ferritin Total Bilirubin AST ALT Alkaline Phosphatase Total Creatine Kinase Troponin T C-Reactive Protein Total Protein Albumin Triglycerides HDL Cholesterol Miscellaneous Test Crossmatch 08/29/17 08/29/17 08/29/17 04:30 04:30 12:07 WBC 44.9 H* RBC Hgb Hct MCV MCH MCHC RDW 23.1 H Plt Count Lymph % (Auto) [place] % (Auto) [place] # Seg Neutrophils % Seg Neuts % (Manual) 38.0 L Lymphocytes % (Manual) 10.0 L Monocytes % (Manual) 10.0 H Nucleated RBC % 6.0 H Seg Neutrophils # Seg Neutrophils # Man 17.1 H Lymphocytes # (Manual) Monocytes # (Manual) 4.5 H Eosinophils # (Manual) Basophils # (Manual) PT INR POC ABG pH ABG pH POC ABG pCO2 POC ABG pO2 ABG pO2 ABG O2 Saturation ABG Base Excess ABG Hemoglobin Oxyhemoglobin Sodium Potassium Chloride Carbon Dioxide BUN 61 H Creatinine 2.4 H Glucose 226 H POC Glucose 200 H Calcium Phosphorus Magnesium Iron TIBC Ferritin Total Bilirubin AST ALT Alkaline Phosphatase Total Creatine Kinase Troponin T C-Reactive Protein Total Protein Albumin Triglycerides HDL Cholesterol Miscellaneous Test Crossmatch 08/29/17 08/29/17 08/29/17 12:30 12:30 17:23 WBC RBC Hgb Hct MCV MCH MCHC RDW Plt Count Lymph % (Auto) [place] % (Auto) [place] # Seg Neutrophils % Seg Neuts % (Manual) Lymphocytes % (Manual) Monocytes % (Manual) Nucleated RBC % Seg Neutrophils # Seg Neutrophils # Man Lymphocytes # (Manual) Monocytes # (Manual) Eosinophils # (Manual) Basophils # (Manual) PT INR POC ABG pH ABG pH POC ABG pCO2 POC ABG pO2 ABG pO2 ABG O2 Saturation ABG Base Excess ABG Hemoglobin Oxyhemoglobin Sodium Potassium Chloride Carbon Dioxide BUN Creatinine Glucose POC Glucose 270 H Calcium Phosphorus Magnesium Iron TIBC Ferritin Total Bilirubin AST ALT Alkaline Phosphatase Total Creatine Kinase Troponin T C-Reactive Protein 19.10 H Total Protein Albumin Triglycerides HDL Cholesterol Miscellaneous Test Flexitest 1 H Crossmatch 08/30/17 08/30/17 08/30/17 00:10 01:30 03:31 WBC RBC Hgb Hct MCV MCH MCHC RDW Plt Count Lymph % (Auto) [place] % (Auto) [place] # Seg Neutrophils % Seg Neuts % (Manual) Lymphocytes % (Manual) Monocytes % (Manual) Nucleated RBC % Seg Neutrophils # Seg Neutrophils # Man Lymphocytes # (Manual) Monocytes # (Manual) Eosinophils # (Manual) Basophils # (Manual) PT INR POC ABG pH 7.168 L 7.335 L ABG pH POC ABG pCO2 72.8 H POC ABG pO2 257 H 117 H ABG pO2 ABG O2 Saturation ABG Base Excess ABG Hemoglobin Oxyhemoglobin Sodium Potassium Chloride Carbon Dioxide BUN Creatinine Glucose POC Glucose 245 H Calcium Phosphorus Magnesium Iron TIBC Ferritin Total Bilirubin AST ALT Alkaline Phosphatase Total Creatine Kinase Troponin T C-Reactive Protein Total Protein Albumin Triglycerides HDL Cholesterol Miscellaneous Test Crossmatch 08/30/17 08/30/17 08/30/17 05:20 05:20 05:20 WBC 40.9 H* RBC 3.64 L Hgb Hct MCV MCH MCHC RDW 24.3 H Plt Count Lymph % (Auto) [place] % (Auto) [place] # Seg Neutrophils % Seg Neuts % (Manual) 80.0 H Lymphocytes % (Manual) 3.0 L Monocytes % (Manual) Nucleated RBC % 1.0 H Seg Neutrophils # Seg Neutrophils # Man 32.7 H Lymphocytes # (Manual) Monocytes # (Manual) Eosinophils # (Manual) Basophils # (Manual) PT INR POC ABG pH ABG pH POC ABG pCO2 POC ABG pO2 ABG pO2 ABG O2 Saturation ABG Base Excess ABG Hemoglobin Oxyhemoglobin Sodium Potassium Chloride Carbon Dioxide BUN 83 H Creatinine 2.9 H Glucose 334 H POC Glucose 309 H Calcium Phosphorus Magnesium Iron TIBC Ferritin Total Bilirubin AST ALT Alkaline Phosphatase Total Creatine Kinase Troponin T C-Reactive Protein Total Protein Albumin Triglycerides HDL Cholesterol Miscellaneous Test Crossmatch 08/30/17 08/30/17 08/31/17 12:18 17:36 00:17 WBC RBC Hgb Hct MCV MCH MCHC RDW Plt Count Lymph % (Auto) [place] % (Auto) [place] # Seg Neutrophils % Seg Neuts % (Manual) Lymphocytes % (Manual) Monocytes % (Manual) Nucleated RBC % Seg Neutrophils # Seg Neutrophils # Man Lymphocytes # (Manual) Monocytes # (Manual) Eosinophils # (Manual) Basophils # (Manual) PT INR POC ABG pH ABG pH POC ABG pCO2 POC ABG pO2 ABG pO2 ABG O2 Saturation ABG Base Excess ABG Hemoglobin Oxyhemoglobin Sodium Potassium Chloride Carbon Dioxide BUN Creatinine Glucose POC Glucose 273 H 293 H 360 H Calcium Phosphorus Magnesium Iron TIBC Ferritin Total Bilirubin AST ALT Alkaline Phosphatase Total Creatine Kinase Troponin T C-Reactive Protein Total Protein Albumin Triglycerides HDL Cholesterol Miscellaneous Test Crossmatch 08/31/17 08/31/17 08/31/17 05:30 05:30 05:32 WBC 29.9 H RBC 2.89 L Hgb 8.2 L Hct 24.7 L D MCV MCH MCHC RDW 24.4 H Plt Count Lymph % (Auto) [place] % (Auto) [place] # Seg Neutrophils % Seg Neuts % (Manual) Lymphocytes % (Manual) 2.0 L Monocytes % (Manual) Nucleated RBC % 2.0 H Seg Neutrophils # Seg Neutrophils # Man 18.5 H Lymphocytes # (Manual) 0.6 L Monocytes # (Manual) 0.9 H Eosinophils # (Manual) Basophils # (Manual) PT INR POC ABG pH ABG pH POC ABG pCO2 POC ABG pO2 ABG pO2 ABG O2 Saturation ABG Base Excess ABG Hemoglobin Oxyhemoglobin Sodium Potassium Chloride Carbon Dioxide BUN 62 H Creatinine 2.2 H Glucose 245 H POC Glucose 257 H Calcium Phosphorus 2.10 L D Magnesium 1.60 L Iron TIBC Ferritin Total Bilirubin AST ALT Alkaline Phosphatase Total Creatine Kinase Troponin T C-Reactive Protein Total Protein Albumin Triglycerides HDL Cholesterol Miscellaneous Test Crossmatch 08/31/17 08/31/17 08/31/17 11:56 12:05 18:14 WBC 32.5 H RBC 3.19 L Hgb 8.8 L Hct 27.9 L MCV MCH MCHC RDW 24.9 H Plt Count Lymph % (Auto) [place] % (Auto) [place] # Seg Neutrophils % Seg Neuts % (Manual) Lymphocytes % (Manual) 1.0 L Monocytes % (Manual) 12.0 H Nucleated RBC % 1.0 H Seg Neutrophils # Seg Neutrophils # Man 13.3 H Lymphocytes # (Manual) 0.3 L Monocytes # (Manual) 3.9 H Eosinophils # (Manual) Basophils # (Manual) PT INR POC ABG pH ABG pH POC ABG pCO2 POC ABG pO2 ABG pO2 ABG O2 Saturation ABG Base Excess ABG Hemoglobin Oxyhemoglobin Sodium Potassium Chloride Carbon Dioxide BUN Creatinine Glucose POC Glucose 245 H Calcium Phosphorus Magnesium Iron TIBC Ferritin Total Bilirubin AST ALT Alkaline Phosphatase Total Creatine Kinase Troponin T C-Reactive Protein Total Protein Albumin Triglycerides HDL Cholesterol Miscellaneous Test Crossmatch See Detail 08/31/17 08/31/17 08/31/17 18:14 18:15 18:22 WBC RBC Hgb Hct MCV MCH MCHC RDW Plt Count Lymph % (Auto) [place] % (Auto) [place] # Seg Neutrophils % Seg Neuts % (Manual) Lymphocytes % (Manual) Monocytes % (Manual) Nucleated RBC % Seg Neutrophils # Seg Neutrophils # Man Lymphocytes # (Manual) Monocytes # (Manual) Eosinophils # (Manual) Basophils # (Manual) PT 15.1 H INR POC ABG pH ABG pH POC ABG pCO2 POC ABG pO2 ABG pO2 ABG O2 Saturation ABG Base Excess ABG Hemoglobin Oxyhemoglobin Sodium 136 L Potassium Chloride Carbon Dioxide 21 L BUN 69 H Creatinine 2.3 H Glucose 227 H POC Glucose 240 H Calcium Phosphorus 2.40 L Magnesium 1.50 L Iron TIBC Ferritin Total Bilirubin AST 143 H ALT 114 H Alkaline Phosphatase 267 H Total Creatine Kinase Troponin T C-Reactive Protein Total Protein 4.1 L Albumin 1.8 L Triglycerides HDL Cholesterol Miscellaneous Test Crossmatch 08/31/17 09/01/17 09/01/17 23:53 05:00 05:00 WBC 33.9 H RBC 2.85 L Hgb 7.8 L Hct 24.8 L MCV MCH 27 L MCHC RDW 23.9 H Plt Count Lymph % (Auto) [place] % (Auto) [place] # Seg Neutrophils % Seg Neuts % (Manual) Lymphocytes % (Manual) 5.0 L Monocytes % (Manual) Nucleated RBC % Seg Neutrophils # Seg Neutrophils # Man 23.1 H Lymphocytes # (Manual) Monocytes # (Manual) Eosinophils # (Manual) Basophils # (Manual) PT INR POC ABG pH ABG pH POC ABG pCO2 POC ABG pO2 ABG pO2 ABG O2 Saturation ABG Base Excess ABG Hemoglobin Oxyhemoglobin Sodium Potassium Chloride Carbon Dioxide BUN 51 H Creatinine 1.8 H Glucose 195 H POC Glucose 301 H Calcium Phosphorus 1.70 L D Magnesium 1.60 L Iron TIBC Ferritin Total Bilirubin AST 80 H ALT 82 H Alkaline Phosphatase 243 H Total Creatine Kinase Troponin T C-Reactive Protein Total Protein 4.2 L Albumin 1.7 L Triglycerides HDL Cholesterol Miscellaneous Test Crossmatch 09/01/17 09/01/17 09/01/17 05:20 05:47 11:37 WBC RBC Hgb Hct MCV MCH MCHC RDW Plt Count Lymph % (Auto) [place] % (Auto) [place] # Seg Neutrophils % Seg Neuts % (Manual) Lymphocytes % (Manual) Monocytes % (Manual) Nucleated RBC % Seg Neutrophils # Seg Neutrophils # Man Lymphocytes # (Manual) Monocytes # (Manual) Eosinophils # (Manual) Basophils # (Manual) PT INR POC ABG pH ABG pH 7.348 L POC ABG pCO2 POC ABG pO2 ABG pO2 70.2 L ABG O2 Saturation ABG Base Excess ABG Hemoglobin 7.5 L Oxyhemoglobin Sodium Potassium Chloride Carbon Dioxide BUN Creatinine Glucose POC Glucose 230 H 254 H Calcium Phosphorus Magnesium Iron TIBC Ferritin Total Bilirubin AST ALT Alkaline Phosphatase Total Creatine Kinase Troponin T C-Reactive Protein Total Protein Albumin Triglycerides HDL Cholesterol Miscellaneous Test Crossmatch 09/01/17 09/01/17 09/02/17 17:39 23:14 04:55 WBC RBC Hgb Hct MCV MCH MCHC RDW Plt Count Lymph % (Auto) [place] % (Auto) [place] # Seg Neutrophils % Seg Neuts % (Manual) Lymphocytes % (Manual) Monocytes % (Manual) Nucleated RBC % Seg Neutrophils # Seg Neutrophils # Man Lymphocytes # (Manual) Monocytes # (Manual) Eosinophils # (Manual) Basophils # (Manual) PT INR POC ABG pH ABG pH POC ABG pCO2 POC ABG pO2 ABG pO2 124.8 H ABG O2 Saturation ABG Base Excess -2.9 L ABG Hemoglobin 5.8 L Oxyhemoglobin Sodium Potassium Chloride Carbon Dioxide BUN Creatinine Glucose POC Glucose 297 H 291 H Calcium Phosphorus Magnesium Iron TIBC Ferritin Total Bilirubin AST ALT Alkaline Phosphatase Total Creatine Kinase Troponin T C-Reactive Protein Total Protein Albumin Triglycerides HDL Cholesterol Miscellaneous Test Crossmatch 09/02/17 09/02/17 09/02/17 05:31 06:10 11:58 WBC RBC Hgb Hct MCV MCH MCHC RDW Plt Count Lymph % (Auto) [place] % (Auto) [place] # Seg Neutrophils % Seg Neuts % (Manual) Lymphocytes % (Manual) Monocytes % (Manual) Nucleated RBC % Seg Neutrophils # Seg Neutrophils # Man Lymphocytes # (Manual) Monocytes # (Manual) Eosinophils # (Manual) Basophils # (Manual) PT INR POC ABG pH ABG pH POC ABG pCO2 POC ABG pO2 ABG pO2 ABG O2 Saturation ABG Base Excess ABG Hemoglobin Oxyhemoglobin Sodium Potassium Chloride Carbon Dioxide BUN 68 H Creatinine 2.2 H Glucose 369 H POC Glucose 245 H 333 H Calcium 8.2 L Phosphorus Magnesium Iron TIBC Ferritin Total Bilirubin AST ALT Alkaline Phosphatase Total Creatine Kinase Troponin T C-Reactive Protein Total Protein Albumin Triglycerides HDL Cholesterol Miscellaneous Test Crossmatch 09/02/17 09/02/17 09/03/17 15:37 23:50 04:00 WBC RBC Hgb Hct MCV MCH MCHC RDW Plt Count Lymph % (Auto) [place] % (Auto) [place] # Seg Neutrophils % Seg Neuts % (Manual) Lymphocytes % (Manual) Monocytes % (Manual) Nucleated RBC % Seg Neutrophils # Seg Neutrophils # Man Lymphocytes # (Manual) Monocytes # (Manual) Eosinophils # (Manual) Basophils # (Manual) PT INR POC ABG pH ABG pH POC ABG pCO2 POC ABG pO2 ABG pO2 ABG O2 Saturation ABG Base Excess ABG Hemoglobin Oxyhemoglobin Sodium Potassium Chloride Carbon Dioxide BUN 59 H Creatinine 1.9 H Glucose 231 H POC Glucose 314 H 240 H Calcium 8.0 L Phosphorus Magnesium Iron TIBC Ferritin Total Bilirubin AST ALT Alkaline Phosphatase 265 H Total Creatine Kinase Troponin T C-Reactive Protein Total Protein 4.4 L Albumin 1.7 L Triglycerides 180 H HDL Cholesterol Miscellaneous Test Crossmatch 09/03/17 09/03/17 09/03/17 05:00 05:32 11:52 WBC 41.5 H* RBC 2.46 L Hgb 6.9 L Hct 21.3 L MCV MCH MCHC RDW 24.9 H Plt Count Lymph % (Auto) [place] % (Auto) [place] # Seg Neutrophils % Seg Neuts % (Manual) Lymphocytes % (Manual) 3.0 L Monocytes % (Manual) 9.5 H Nucleated RBC % 1.5 H Seg Neutrophils # Seg Neutrophils # Man 28.8 H Lymphocytes # (Manual) Monocytes # (Manual) 3.9 H Eosinophils # (Manual) Basophils # (Manual) PT INR POC ABG pH ABG pH POC ABG pCO2 POC ABG pO2 ABG pO2 ABG O2 Saturation ABG Base Excess ABG Hemoglobin Oxyhemoglobin Sodium Potassium Chloride Carbon Dioxide BUN Creatinine Glucose POC Glucose 188 H 285 H Calcium Phosphorus Magnesium Iron TIBC Ferritin Total Bilirubin AST ALT Alkaline Phosphatase Total Creatine Kinase Troponin T C-Reactive Protein Total Protein Albumin Triglycerides HDL Cholesterol Miscellaneous Test Crossmatch 09/03/17 09/03/17 09/03/17 16:55 17:44 23:56 WBC RBC Hgb Hct MCV MCH MCHC RDW Plt Count Lymph % (Auto) [place] % (Auto) [place] # Seg Neutrophils % Seg Neuts % (Manual) Lymphocytes % (Manual) Monocytes % (Manual) Nucleated RBC % Seg Neutrophils # Seg Neutrophils # Man Lymphocytes # (Manual) Monocytes # (Manual) Eosinophils # (Manual) Basophils # (Manual) PT INR POC ABG pH ABG pH POC ABG pCO2 POC ABG pO2 ABG pO2 ABG O2 Saturation ABG Base Excess ABG Hemoglobin Oxyhemoglobin Sodium Potassium Chloride Carbon Dioxide BUN Creatinine Glucose POC Glucose 217 H 193 H Calcium Phosphorus Magnesium Iron TIBC Ferritin Total Bilirubin AST ALT Alkaline Phosphatase Total Creatine Kinase Troponin T C-Reactive Protein Total Protein Albumin Triglycerides HDL Cholesterol Miscellaneous Test Crossmatch See Detail 09/03/17 09/04/17 09/04/17 Unknown 03:47 04:32 WBC 44.7 H* RBC 3.12 L Hgb 8.7 L Hct 26.7 L MCV MCH MCHC RDW 23.5 H Plt Count Lymph % (Auto) [place] % (Auto) [place] # Seg Neutrophils % Seg Neuts % (Manual) Lymphocytes % (Manual) 4.0 L Monocytes % (Manual) Nucleated RBC % 2.0 H Seg Neutrophils # Seg Neutrophils # Man 30.8 H Lymphocytes # (Manual) Monocytes # (Manual) 2.2 H Eosinophils # (Manual) Basophils # (Manual) PT INR POC ABG pH ABG pH POC ABG pCO2 POC ABG pO2 ABG pO2 133.4 H 135.0 H ABG O2 Saturation ABG Base Excess -2.5 L ABG Hemoglobin 5.8 L 7.9 L Oxyhemoglobin Sodium Potassium Chloride Carbon Dioxide BUN Creatinine Glucose POC Glucose Calcium Phosphorus Magnesium Iron TIBC Ferritin Total Bilirubin AST ALT Alkaline Phosphatase Total Creatine Kinase Troponin T C-Reactive Protein Total Protein Albumin Triglycerides HDL Cholesterol Miscellaneous Test Crossmatch 09/04/17 09/04/17 09/04/17 04:32 05:48 10:43 WBC RBC Hgb Hct MCV MCH MCHC RDW Plt Count Lymph % (Auto) [place] % (Auto) [place] # Seg Neutrophils % Seg Neuts % (Manual) Lymphocytes % (Manual) Monocytes % (Manual) Nucleated RBC % Seg Neutrophils # Seg Neutrophils # Man Lymphocytes # (Manual) Monocytes # (Manual) Eosinophils # (Manual) Basophils # (Manual) PT INR POC ABG pH ABG pH POC ABG pCO2 POC ABG pO2 ABG pO2 ABG O2 Saturation ABG Base Excess ABG Hemoglobin Oxyhemoglobin Sodium 136 L Potassium 5.2 H D Chloride 94.2 L Carbon Dioxide BUN 71 H Creatinine 2.3 H Glucose 235 H POC Glucose 329 H Calcium 8.3 L Phosphorus Magnesium Iron TIBC Ferritin Total Bilirubin AST ALT Alkaline Phosphatase Total Creatine Kinase Troponin T C-Reactive Protein Total Protein Albumin Triglycerides HDL Cholesterol Miscellaneous Test Flexitest 1 H Crossmatch 09/04/17 09/04/17 09/05/17 12:38 17:30 00:15 WBC RBC Hgb Hct MCV MCH MCHC RDW Plt Count Lymph % (Auto) [place] % (Auto) [place] # Seg Neutrophils % Seg Neuts % (Manual) Lymphocytes % (Manual) Monocytes % (Manual) Nucleated RBC % Seg Neutrophils # Seg Neutrophils # Man Lymphocytes # (Manual) Monocytes # (Manual) Eosinophils # (Manual) Basophils # (Manual) PT INR POC ABG pH ABG pH POC ABG pCO2 POC ABG pO2 ABG pO2 ABG O2 Saturation ABG Base Excess ABG Hemoglobin Oxyhemoglobin Sodium Potassium Chloride Carbon Dioxide BUN Creatinine Glucose POC Glucose 444 H 331 H 362 H Calcium Phosphorus Magnesium Iron TIBC Ferritin Total Bilirubin AST ALT Alkaline Phosphatase Total Creatine Kinase Troponin T C-Reactive Protein Total Protein Albumin Triglycerides HDL Cholesterol Miscellaneous Test Crossmatch 09/05/17 09/05/17 09/05/17 03:55 03:55 12:12 WBC 35.3 H RBC 2.87 L Hgb 8.1 L Hct 24.6 L MCV MCH MCHC RDW 23.3 H Plt Count Lymph % (Auto) [place] % (Auto) [place] # Seg Neutrophils % Seg Neuts % (Manual) 89.5 H Lymphocytes % (Manual) 3.0 L Monocytes % (Manual) Nucleated RBC % 2.5 H Seg Neutrophils # Seg Neutrophils # Man 31.6 H Lymphocytes # (Manual) 1.1 L Monocytes # (Manual) Eosinophils # (Manual) Basophils # (Manual) PT INR POC ABG pH ABG pH POC ABG pCO2 POC ABG pO2 ABG pO2 ABG O2 Saturation ABG Base Excess ABG Hemoglobin Oxyhemoglobin Sodium 136 L Potassium Chloride 94.7 L Carbon Dioxide BUN 55 H Creatinine 1.8 H Glucose 193 H POC Glucose 344 H Calcium 8.1 L Phosphorus Magnesium Iron TIBC Ferritin Total Bilirubin AST ALT Alkaline Phosphatase Total Creatine Kinase Troponin T C-Reactive Protein Total Protein Albumin Triglycerides HDL Cholesterol Miscellaneous Test Crossmatch 09/05/17 09/05/17 09/05/17 14:32 15:32 16:41 WBC RBC Hgb Hct MCV MCH MCHC RDW Plt Count Lymph % (Auto) [place] % (Auto) [place] # Seg Neutrophils % Seg Neuts % (Manual) Lymphocytes % (Manual) Monocytes % (Manual) Nucleated RBC % Seg Neutrophils # Seg Neutrophils # Man Lymphocytes # (Manual) Monocytes # (Manual) Eosinophils # (Manual) Basophils # (Manual) PT INR POC ABG pH ABG pH POC ABG pCO2 POC ABG pO2 ABG pO2 ABG O2 Saturation ABG Base Excess ABG Hemoglobin Oxyhemoglobin Sodium Potassium Chloride Carbon Dioxide BUN Creatinine Glucose POC Glucose 265 H 145 H 188 H Calcium Phosphorus Magnesium Iron TIBC Ferritin Total Bilirubin AST ALT Alkaline Phosphatase Total Creatine Kinase Troponin T C-Reactive Protein Total Protein Albumin Triglycerides HDL Cholesterol Miscellaneous Test Crossmatch 09/05/17 09/05/17 09/05/17 17:28 18:38 20:10 WBC RBC Hgb Hct MCV MCH MCHC RDW Plt Count Lymph % (Auto) [place] % (Auto) [place] # Seg Neutrophils % Seg Neuts % (Manual) Lymphocytes % (Manual) Monocytes % (Manual) Nucleated RBC % Seg Neutrophils # Seg Neutrophils # Man Lymphocytes # (Manual) Monocytes # (Manual) Eosinophils # (Manual) Basophils # (Manual) PT INR POC ABG pH ABG pH POC ABG pCO2 POC ABG pO2 ABG pO2 ABG O2 Saturation ABG Base Excess ABG Hemoglobin Oxyhemoglobin Sodium Potassium Chloride Carbon Dioxide BUN Creatinine Glucose POC Glucose 246 H 271 H 165 H Calcium Phosphorus Magnesium Iron TIBC Ferritin Total Bilirubin AST ALT Alkaline Phosphatase Total Creatine Kinase Troponin T C-Reactive Protein Total Protein Albumin Triglycerides HDL Cholesterol Miscellaneous Test Crossmatch 09/05/17 09/05/17 09/06/17 21:06 23:07 00:10 WBC RBC Hgb Hct MCV MCH MCHC RDW Plt Count Lymph % (Auto) [place] % (Auto) [place] # Seg Neutrophils % Seg Neuts % (Manual) Lymphocytes % (Manual) Monocytes % (Manual) Nucleated RBC % Seg Neutrophils # Seg Neutrophils # Man Lymphocytes # (Manual) Monocytes # (Manual) Eosinophils # (Manual) Basophils # (Manual) PT INR POC ABG pH ABG pH POC ABG pCO2 POC ABG pO2 ABG pO2 ABG O2 Saturation ABG Base Excess ABG Hemoglobin Oxyhemoglobin Sodium Potassium Chloride Carbon Dioxide BUN Creatinine Glucose POC Glucose 134 H 135 H 147 H Calcium Phosphorus Magnesium Iron TIBC Ferritin Total Bilirubin AST ALT Alkaline Phosphatase Total Creatine Kinase Troponin T C-Reactive Protein Total Protein Albumin Triglycerides HDL Cholesterol Miscellaneous Test Crossmatch 09/06/17 09/06/17 09/06/17 01:08 02:01 03:08 WBC RBC Hgb Hct MCV MCH MCHC RDW Plt Count Lymph % (Auto) [place] % (Auto) [place] # Seg Neutrophils % Seg Neuts % (Manual) Lymphocytes % (Manual) Monocytes % (Manual) Nucleated RBC % Seg Neutrophils # Seg Neutrophils # Man Lymphocytes # (Manual) Monocytes # (Manual) Eosinophils # (Manual) Basophils # (Manual) PT INR POC ABG pH ABG pH POC ABG pCO2 POC ABG pO2 ABG pO2 ABG O2 Saturation ABG Base Excess ABG Hemoglobin Oxyhemoglobin Sodium Potassium Chloride Carbon Dioxide BUN Creatinine Glucose POC Glucose 133 H 146 H 135 H Calcium Phosphorus Magnesium Iron TIBC Ferritin Total Bilirubin AST ALT Alkaline Phosphatase Total Creatine Kinase Troponin T C-Reactive Protein Total Protein Albumin Triglycerides HDL Cholesterol Miscellaneous Test Crossmatch 09/06/17 09/06/17 09/06/17 05:30 05:30 05:30 WBC 38.6 H RBC 2.95 L Hgb 8.3 L Hct 25.3 L MCV MCH MCHC RDW 22.2 H Plt Count Lymph % (Auto) [place] % (Auto) [place] # Seg Neutrophils % Seg Neuts % (Manual) Lymphocytes % (Manual) 2.0 L Monocytes % (Manual) Nucleated RBC % 5.0 H Seg Neutrophils # Seg Neutrophils # Man 25.9 H Lymphocytes # (Manual) 0.8 L Monocytes # (Manual) 1.9 H Eosinophils # (Manual) Basophils # (Manual) PT INR POC ABG pH ABG pH POC ABG pCO2 POC ABG pO2 ABG pO2 ABG O2 Saturation ABG Base Excess ABG Hemoglobin Oxyhemoglobin Sodium 135 L Potassium Chloride 93.5 L Carbon Dioxide BUN 82 H Creatinine 2.3 H Glucose 148 H POC Glucose Calcium Phosphorus Magnesium Iron TIBC Ferritin Total Bilirubin AST ALT Alkaline Phosphatase Total Creatine Kinase Troponin T C-Reactive Protein 2.80 H Total Protein Albumin Triglycerides HDL Cholesterol Miscellaneous Test Crossmatch 09/06/17 09/06/17 09/06/17 05:48 08:04 09:06 WBC RBC Hgb Hct MCV MCH MCHC RDW Plt Count Lymph % (Auto) [place] % (Auto) [place] # Seg Neutrophils % Seg Neuts % (Manual) Lymphocytes % (Manual) Monocytes % (Manual) Nucleated RBC % Seg Neutrophils # Seg Neutrophils # Man Lymphocytes # (Manual) Monocytes # (Manual) Eosinophils # (Manual) Basophils # (Manual) PT INR POC ABG pH ABG pH POC ABG pCO2 POC ABG pO2 ABG pO2 ABG O2 Saturation ABG Base Excess ABG Hemoglobin Oxyhemoglobin Sodium Potassium Chloride Carbon Dioxide BUN Creatinine Glucose POC Glucose 152 H 164 H 172 H Calcium Phosphorus Magnesium Iron TIBC Ferritin Total Bilirubin AST ALT Alkaline Phosphatase Total Creatine Kinase Troponin T C-Reactive Protein Total Protein Albumin Triglycerides HDL Cholesterol Miscellaneous Test Crossmatch 09/06/17 09/06/17 09/06/17 09:57 10:19 10:57 WBC RBC Hgb Hct MCV MCH MCHC RDW Plt Count Lymph % (Auto) [place] % (Auto) [place] # Seg Neutrophils % Seg Neuts % (Manual) Lymphocytes % (Manual) Monocytes % (Manual) Nucleated RBC % Seg Neutrophils # Seg Neutrophils # Man Lymphocytes # (Manual) Monocytes # (Manual) Eosinophils # (Manual) Basophils # (Manual) PT INR POC ABG pH ABG pH POC ABG pCO2 POC ABG pO2 ABG pO2 ABG O2 Saturation ABG Base Excess ABG Hemoglobin Oxyhemoglobin Sodium Potassium Chloride Carbon Dioxide BUN Creatinine Glucose POC Glucose 186 H 162 H Calcium Phosphorus Magnesium Iron TIBC Ferritin Total Bilirubin AST ALT Alkaline Phosphatase Total Creatine Kinase Troponin T C-Reactive Protein Total Protein Albumin Triglycerides HDL Cholesterol Miscellaneous Test Flexitest 1 H Crossmatch 09/06/17 09/06/17 09/06/17 13:12 13:40 17:36 WBC RBC Hgb 8.9 L Hct 28.5 L MCV MCH MCHC RDW Plt Count Lymph % (Auto) [place] % (Auto) [place] # Seg Neutrophils % Seg Neuts % (Manual) Lymphocytes % (Manual) Monocytes % (Manual) Nucleated RBC % Seg Neutrophils # Seg Neutrophils # Man Lymphocytes # (Manual) Monocytes # (Manual) Eosinophils # (Manual) Basophils # (Manual) PT INR POC ABG pH ABG pH POC ABG pCO2 POC ABG pO2 ABG pO2 ABG O2 Saturation ABG Base Excess ABG Hemoglobin Oxyhemoglobin Sodium Potassium Chloride Carbon Dioxide BUN Creatinine Glucose POC Glucose 166 H 161 H Calcium Phosphorus Magnesium Iron TIBC Ferritin Total Bilirubin AST ALT Alkaline Phosphatase Total Creatine Kinase Troponin T C-Reactive Protein Total Protein Albumin Triglycerides HDL Cholesterol Miscellaneous Test Crossmatch 09/07/17 09/07/17 09/07/17 00:13 03:50 03:50 WBC 47.0 H* RBC 2.81 L Hgb 8.1 L Hct 24.1 L MCV MCH MCHC RDW 22.5 H Plt Count Lymph % (Auto) [place] % (Auto) [place] # Seg Neutrophils % Seg Neuts % (Manual) Lymphocytes % (Manual) 9.0 L Monocytes % (Manual) Nucleated RBC % 6.0 H Seg Neutrophils # Seg Neutrophils # Man 27.3 H Lymphocytes # (Manual) Monocytes # (Manual) 0.9 H Eosinophils # (Manual) 1.9 H Basophils # (Manual) PT INR POC ABG pH ABG pH POC ABG pCO2 POC ABG pO2 ABG pO2 ABG O2 Saturation ABG Base Excess ABG Hemoglobin Oxyhemoglobin Sodium 136 L Potassium Chloride 96.3 L Carbon Dioxide BUN 61 H Creatinine 1.7 H Glucose 132 H POC Glucose 183 H Calcium 7.8 L Phosphorus Magnesium Iron TIBC Ferritin Total Bilirubin AST ALT Alkaline Phosphatase Total Creatine Kinase Troponin T C-Reactive Protein Total Protein Albumin Triglycerides HDL Cholesterol Miscellaneous Test Crossmatch 09/07/17 09/07/17 09/07/17 05:12 05:23 11:48 WBC RBC Hgb Hct MCV MCH MCHC RDW Plt Count Lymph % (Auto) [place] % (Auto) [place] # Seg Neutrophils % Seg Neuts % (Manual) Lymphocytes % (Manual) Monocytes % (Manual) Nucleated RBC % Seg Neutrophils # Seg Neutrophils # Man Lymphocytes # (Manual) Monocytes # (Manual) Eosinophils # (Manual) Basophils # (Manual) PT INR POC ABG pH ABG pH POC ABG pCO2 POC ABG pO2 ABG pO2 ABG O2 Saturation ABG Base Excess ABG Hemoglobin 7.7 L Oxyhemoglobin 94.8 L Sodium Potassium Chloride Carbon Dioxide BUN Creatinine Glucose POC Glucose 162 H 200 H Calcium Phosphorus Magnesium Iron TIBC Ferritin Total Bilirubin AST ALT Alkaline Phosphatase Total Creatine Kinase Troponin T C-Reactive Protein Total Protein Albumin Triglycerides HDL Cholesterol Miscellaneous Test Crossmatch 09/07/17 09/07/17 09/08/17 17:07 18:21 00:06 WBC RBC Hgb Hct MCV MCH MCHC RDW Plt Count Lymph % (Auto) [place] % (Auto) [place] # Seg Neutrophils % Seg Neuts % (Manual) Lymphocytes % (Manual) Monocytes % (Manual) Nucleated RBC % Seg Neutrophils # Seg Neutrophils # Man Lymphocytes # (Manual) Monocytes # (Manual) Eosinophils # (Manual) Basophils # (Manual) PT INR POC ABG pH ABG pH POC ABG pCO2 POC ABG pO2 ABG pO2 ABG O2 Saturation ABG Base Excess ABG Hemoglobin Oxyhemoglobin Sodium Potassium Chloride Carbon Dioxide BUN Creatinine Glucose POC Glucose 181 H 168 H Calcium Phosphorus Magnesium Iron TIBC Ferritin Total Bilirubin AST ALT Alkaline Phosphatase Total Creatine Kinase Troponin T C-Reactive Protein Total Protein Albumin Triglycerides HDL Cholesterol Miscellaneous Test Crossmatch See Detail 09/08/17 09/08/17 09/08/17 04:05 04:05 04:41 WBC 49.7 H* RBC 2.58 L Hgb 7.3 L Hct 22.7 L MCV MCH MCHC RDW 22.5 H Plt Count Lymph % (Auto) [place] % (Auto) [place] # Seg Neutrophils % Seg Neuts % (Manual) 90.5 H Lymphocytes % (Manual) 1.5 L Monocytes % (Manual) Nucleated RBC % Seg Neutrophils # Seg Neutrophils # Man 45.0 H Lymphocytes # (Manual) 0.7 L Monocytes # (Manual) 1.7 H Eosinophils # (Manual) Basophils # (Manual) PT INR POC ABG pH ABG pH POC ABG pCO2 POC ABG pO2 ABG pO2 ABG O2 Saturation ABG Base Excess ABG Hemoglobin Oxyhemoglobin Sodium 132 L Potassium Chloride 92.1 L Carbon Dioxide BUN 82 H Creatinine 2.2 H Glucose 162 H POC Glucose 235 H Calcium 8.3 L Phosphorus 5.20 H D Magnesium Iron TIBC Ferritin Total Bilirubin AST ALT Alkaline Phosphatase 199 H Total Creatine Kinase Troponin T C-Reactive Protein Total Protein 4.5 L Albumin 1.7 L Triglycerides HDL Cholesterol Miscellaneous Test Crossmatch 09/08/17 09/08/17 09/08/17 09:21 11:52 17:38 WBC RBC Hgb Hct MCV MCH MCHC RDW Plt Count Lymph % (Auto) [place] % (Auto) [place] # Seg Neutrophils % Seg Neuts % (Manual) Lymphocytes % (Manual) Monocytes % (Manual) Nucleated RBC % Seg Neutrophils # Seg Neutrophils # Man Lymphocytes # (Manual) Monocytes # (Manual) Eosinophils # (Manual) Basophils # (Manual) PT INR POC ABG pH ABG pH POC ABG pCO2 POC ABG pO2 ABG pO2 218.5 H ABG O2 Saturation 99.3 H ABG Base Excess -3.5 L ABG Hemoglobin 7.7 L Oxyhemoglobin Sodium Potassium Chloride Carbon Dioxide BUN Creatinine Glucose POC Glucose 220 H 194 H Calcium Phosphorus Magnesium Iron TIBC Ferritin Total Bilirubin AST ALT Alkaline Phosphatase Total Creatine Kinase Troponin T C-Reactive Protein Total Protein Albumin Triglycerides HDL Cholesterol Miscellaneous Test Crossmatch 09/09/17 09/09/17 09/09/17 00:24 03:37 03:37 WBC 33.5 H RBC 2.36 L Hgb 6.7 L Hct 20.9 L MCV MCH MCHC RDW 22.7 H Plt Count Lymph % (Auto) [place] % (Auto) [place] # Seg Neutrophils % Seg Neuts % (Manual) Lymphocytes % (Manual) Monocytes % (Manual) Nucleated RBC % Seg Neutrophils # Seg Neutrophils # Man Lymphocytes # (Manual) Monocytes # (Manual) Eosinophils # (Manual) Basophils # (Manual) PT INR POC ABG pH ABG pH POC ABG pCO2 POC ABG pO2 ABG pO2 ABG O2 Saturation ABG Base Excess ABG Hemoglobin Oxyhemoglobin Sodium 132 L Potassium Chloride 91.6 L Carbon Dioxide 21 L BUN 101 H Creatinine 2.6 H Glucose 156 H POC Glucose 182 H Calcium 8.3 L Phosphorus 5.90 H Magnesium 2.60 H Iron TIBC Ferritin Total Bilirubin AST ALT Alkaline Phosphatase Total Creatine Kinase Troponin T C-Reactive Protein Total Protein Albumin Triglycerides HDL Cholesterol Miscellaneous Test Crossmatch 09/09/17 09/09/17 09/09/17 05:29 12:03 18:05 WBC RBC Hgb Hct MCV MCH MCHC RDW Plt Count Lymph % (Auto) [place] % (Auto) [place] # Seg Neutrophils % Seg Neuts % (Manual) Lymphocytes % (Manual) Monocytes % (Manual) Nucleated RBC % Seg Neutrophils # Seg Neutrophils # Man Lymphocytes # (Manual) Monocytes # (Manual) Eosinophils # (Manual) Basophils # (Manual) PT INR POC ABG pH ABG pH POC ABG pCO2 POC ABG pO2 ABG pO2 ABG O2 Saturation ABG Base Excess ABG Hemoglobin Oxyhemoglobin Sodium Potassium Chloride Carbon Dioxide BUN Creatinine Glucose POC Glucose 168 H 143 H 173 H Calcium Phosphorus Magnesium Iron TIBC Ferritin Total Bilirubin AST ALT Alkaline Phosphatase Total Creatine Kinase Troponin T C-Reactive Protein Total Protein Albumin Triglycerides HDL Cholesterol Miscellaneous Test Crossmatch 09/09/17 09/09/17 09/10/17 23:30 Unknown 05:04 WBC RBC Hgb Hct MCV MCH MCHC RDW Plt Count Lymph % (Auto) [place] % (Auto) [place] # Seg Neutrophils % Seg Neuts % (Manual) Lymphocytes % (Manual) Monocytes % (Manual) Nucleated RBC % Seg Neutrophils # Seg Neutrophils # Man Lymphocytes # (Manual) Monocytes # (Manual) Eosinophils # (Manual) Basophils # (Manual) PT INR POC ABG pH ABG pH 7.323 L POC ABG pCO2 POC ABG pO2 ABG pO2 94.1 H ABG O2 Saturation ABG Base Excess -4.8 L ABG Hemoglobin 8.0 L Oxyhemoglobin 94.9 L Sodium Potassium Chloride Carbon Dioxide BUN Creatinine Glucose POC Glucose 212 H 155 H Calcium Phosphorus Magnesium Iron TIBC Ferritin Total Bilirubin AST ALT Alkaline Phosphatase Total Creatine Kinase Troponin T C-Reactive Protein Total Protein Albumin Triglycerides HDL Cholesterol Miscellaneous Test Crossmatch 09/10/17 09/10/17 09/10/17 07:00 09:55 12:22 WBC 24.7 H RBC 2.62 L Hgb 7.5 L Hct 22.5 L MCV MCH MCHC RDW 20.8 H Plt Count Lymph % (Auto) [place] % (Auto) [place] # Seg Neutrophils % Seg Neuts % (Manual) Lymphocytes % (Manual) Monocytes % (Manual) Nucleated RBC % Seg Neutrophils # Seg Neutrophils # Man Lymphocytes # (Manual) Monocytes # (Manual) Eosinophils # (Manual) Basophils # (Manual) PT INR POC ABG pH ABG pH POC ABG pCO2 POC ABG pO2 ABG pO2 ABG O2 Saturation ABG Base Excess ABG Hemoglobin Oxyhemoglobin Sodium Potassium Chloride 97.9 L Carbon Dioxide BUN 78 H Creatinine 2.0 H Glucose 126 H POC Glucose 183 H Calcium 8.2 L Phosphorus Magnesium Iron TIBC Ferritin Total Bilirubin AST ALT Alkaline Phosphatase Total Creatine Kinase Troponin T C-Reactive Protein Total Protein Albumin Triglycerides HDL Cholesterol Miscellaneous Test Crossmatch 09/11/17 09/11/17 09/11/17 00:08 03:50 05:28 WBC 21.6 H RBC 2.52 L Hgb 7.4 L Hct 22.2 L MCV MCH MCHC RDW 21.5 H Plt Count Lymph % (Auto) [place] % (Auto) [place] # Seg Neutrophils % Seg Neuts % (Manual) 92.0 H Lymphocytes % (Manual) 3.0 L Monocytes % (Manual) Nucleated RBC % Seg Neutrophils # Seg Neutrophils # Man 19.9 H Lymphocytes # (Manual) 0.6 L Monocytes # (Manual) Eosinophils # (Manual) Basophils # (Manual) PT INR POC ABG pH ABG pH POC ABG pCO2 POC ABG pO2 ABG pO2 ABG O2 Saturation ABG Base Excess ABG Hemoglobin Oxyhemoglobin Sodium Potassium Chloride Carbon Dioxide BUN Creatinine Glucose POC Glucose 213 H 181 H Calcium Phosphorus Magnesium Iron TIBC Ferritin Total Bilirubin AST ALT Alkaline Phosphatase Total Creatine Kinase Troponin T C-Reactive Protein Total Protein Albumin Triglycerides HDL Cholesterol Miscellaneous Test Crossmatch 09/11/17 09/11/17 09/11/17 11:55 17:56 23:12 WBC RBC Hgb Hct MCV MCH MCHC RDW Plt Count Lymph % (Auto) [place] % (Auto) [place] # Seg Neutrophils % Seg Neuts % (Manual) Lymphocytes % (Manual) Monocytes % (Manual) Nucleated RBC % Seg Neutrophils # Seg Neutrophils # Man Lymphocytes # (Manual) Monocytes # (Manual) Eosinophils # (Manual) Basophils # (Manual) PT INR POC ABG pH ABG pH POC ABG pCO2 POC ABG pO2 ABG pO2 ABG O2 Saturation ABG Base Excess ABG Hemoglobin Oxyhemoglobin Sodium Potassium Chloride Carbon Dioxide 21 L BUN 80 H Creatinine 2.1 H Glucose 170 H POC Glucose 277 H 206 H Calcium 8.0 L Phosphorus Magnesium Iron TIBC Ferritin Total Bilirubin AST ALT Alkaline Phosphatase Total Creatine Kinase Troponin T C-Reactive Protein Total Protein Albumin Triglycerides HDL Cholesterol Miscellaneous Test Crossmatch 09/11/17 09/12/17 09/12/17 23:36 05:25 05:25 WBC 17.4 H RBC 2.29 L Hgb 6.7 L Hct 20.4 L MCV MCH MCHC RDW 21.2 H Plt Count Lymph % (Auto) [place] % (Auto) [place] # Seg Neutrophils % Seg Neuts % (Manual) 79.0 H Lymphocytes % (Manual) 5.0 L Monocytes % (Manual) Nucleated RBC % 1.0 H Seg Neutrophils # Seg Neutrophils # Man 13.7 H Lymphocytes # (Manual) 0.9 L Monocytes # (Manual) 1.2 H Eosinophils # (Manual) Basophils # (Manual) PT INR POC ABG pH ABG pH POC ABG pCO2 POC ABG pO2 ABG pO2 ABG O2 Saturation ABG Base Excess ABG Hemoglobin Oxyhemoglobin Sodium Potassium Chloride Carbon Dioxide BUN Creatinine Glucose POC Glucose 190 H Calcium Phosphorus Magnesium Iron 22 L TIBC 81 L Ferritin Total Bilirubin AST ALT Alkaline Phosphatase Total Creatine Kinase Troponin T C-Reactive Protein Total Protein Albumin Triglycerides HDL Cholesterol Miscellaneous Test Crossmatch 09/12/17 09/12/17 09/12/17 05:25 05:36 09:14 WBC RBC Hgb Hct MCV MCH MCHC RDW Plt Count Lymph % (Auto) [place] % (Auto) [place] # Seg Neutrophils % Seg Neuts % (Manual) Lymphocytes % (Manual) Monocytes % (Manual) Nucleated RBC % Seg Neutrophils # Seg Neutrophils # Man Lymphocytes # (Manual) Monocytes # (Manual) Eosinophils # (Manual) Basophils # (Manual) PT INR POC ABG pH ABG pH POC ABG pCO2 POC ABG pO2 ABG pO2 ABG O2 Saturation ABG Base Excess ABG Hemoglobin Oxyhemoglobin Sodium Potassium Chloride Carbon Dioxide BUN Creatinine Glucose POC Glucose 141 H Calcium Phosphorus Magnesium Iron TIBC Ferritin > 2000.0 H Total Bilirubin AST ALT Alkaline Phosphatase Total Creatine Kinase Troponin T C-Reactive Protein Total Protein Albumin Triglycerides HDL Cholesterol Miscellaneous Test Crossmatch See Detail 09/12/17 09/12/17 09/12/17 11:18 15:22 17:18 WBC RBC Hgb 8.5 L Hct 25.4 L MCV MCH MCHC RDW Plt Count Lymph % (Auto) [place] % (Auto) [place] # Seg Neutrophils % Seg Neuts % (Manual) Lymphocytes % (Manual) Monocytes % (Manual) Nucleated RBC % Seg Neutrophils # Seg Neutrophils # Man Lymphocytes # (Manual) Monocytes # (Manual) Eosinophils # (Manual) Basophils # (Manual) PT INR POC ABG pH ABG pH POC ABG pCO2 POC ABG pO2 ABG pO2 ABG O2 Saturation ABG Base Excess ABG Hemoglobin Oxyhemoglobin Sodium Potassium Chloride Carbon Dioxide BUN Creatinine Glucose POC Glucose 262 H 193 H Calcium Phosphorus Magnesium Iron TIBC Ferritin Total Bilirubin AST ALT Alkaline Phosphatase Total Creatine Kinase Troponin T C-Reactive Protein Total Protein Albumin Triglycerides HDL Cholesterol Miscellaneous Test Crossmatch 09/13/17 09/13/17 09/13/17 00:05 06:25 11:36 WBC RBC Hgb Hct MCV MCH MCHC RDW Plt Count Lymph % (Auto) [place] % (Auto) [place] # Seg Neutrophils % Seg Neuts % (Manual) Lymphocytes % (Manual) Monocytes % (Manual) Nucleated RBC % Seg Neutrophils # Seg Neutrophils # Man Lymphocytes # (Manual) Monocytes # (Manual) Eosinophils # (Manual) Basophils # (Manual) PT INR POC ABG pH 7.347 L ABG pH POC ABG pCO2 34.3 L POC ABG pO2 134 H ABG pO2 ABG O2 Saturation ABG Base Excess ABG Hemoglobin Oxyhemoglobin Sodium Potassium Chloride Carbon Dioxide BUN Creatinine Glucose POC Glucose 235 H 286 H Calcium Phosphorus Magnesium Iron TIBC Ferritin Total Bilirubin AST ALT Alkaline Phosphatase Total Creatine Kinase Troponin T C-Reactive Protein Total Protein Albumin Triglycerides HDL Cholesterol Miscellaneous Test Crossmatch 09/13/17 09/13/17 09/13/17 11:56 17:25 23:18 WBC RBC Hgb Hct MCV MCH MCHC RDW Plt Count Lymph % (Auto) [place] % (Auto) [place] # Seg Neutrophils % Seg Neuts % (Manual) Lymphocytes % (Manual) Monocytes % (Manual) Nucleated RBC % Seg Neutrophils # Seg Neutrophils # Man Lymphocytes # (Manual) Monocytes # (Manual) Eosinophils # (Manual) Basophils # (Manual) PT INR POC ABG pH ABG pH POC ABG pCO2 POC ABG pO2 ABG pO2 ABG O2 Saturation ABG Base Excess ABG Hemoglobin Oxyhemoglobin Sodium Potassium Chloride Carbon Dioxide BUN Creatinine Glucose POC Glucose 318 H 278 H 230 H Calcium Phosphorus Magnesium Iron TIBC Ferritin Total Bilirubin AST ALT Alkaline Phosphatase Total Creatine Kinase Troponin T C-Reactive Protein Total Protein Albumin Triglycerides HDL Cholesterol Miscellaneous Test Crossmatch 09/13/17 09/13/17 09/13/17 Unknown Unknown Unknown WBC 15.6 H RBC 2.72 L Hgb 8.1 L Hct 23.9 L MCV MCH MCHC RDW 19.5 H Plt Count 137 L Lymph % (Auto) [place] % (Auto) [place] # Seg Neutrophils % Seg Neuts % (Manual) 73.0 H Lymphocytes % (Manual) 3.0 L Monocytes % (Manual) 19.0 H Nucleated RBC % 2.0 H Seg Neutrophils # Seg Neutrophils # Man 11.4 H Lymphocytes # (Manual) 0.5 L Monocytes # (Manual) 3.0 H Eosinophils # (Manual) Basophils # (Manual) PT INR POC ABG pH ABG pH POC ABG pCO2 POC ABG pO2 ABG pO2 ABG O2 Saturation ABG Base Excess ABG Hemoglobin Oxyhemoglobin Sodium Potassium Chloride Carbon Dioxide 19 L BUN 103 H Creatinine 2.6 H Glucose 173 H POC Glucose Calcium Phosphorus Magnesium Iron TIBC Ferritin Total Bilirubin AST ALT Alkaline Phosphatase Total Creatine Kinase Troponin T C-Reactive Protein Total Protein Albumin < 0.2 L Triglycerides HDL Cholesterol Miscellaneous Test Crossmatch 09/14/17 09/14/17 09/14/17 03:15 03:15 05:16 WBC 12.5 H RBC 2.55 L Hgb 7.6 L Hct 22.5 L MCV MCH MCHC RDW 19.8 H Plt Count 139 L Lymph % (Auto) [place] % (Auto) [place] # Seg Neutrophils % Seg Neuts % (Manual) Lymphocytes % (Manual) Monocytes % (Manual) Nucleated RBC % Seg Neutrophils # Seg Neutrophils # Man Lymphocytes # (Manual) Monocytes # (Manual) Eosinophils # (Manual) Basophils # (Manual) PT INR POC ABG pH ABG pH POC ABG pCO2 POC ABG pO2 ABG pO2 ABG O2 Saturation ABG Base Excess ABG Hemoglobin Oxyhemoglobin Sodium Potassium Chloride Carbon Dioxide BUN 75 H Creatinine 2.1 H Glucose 217 H POC Glucose 283 H Calcium Phosphorus 2.20 L D Magnesium Iron TIBC Ferritin Total Bilirubin AST ALT Alkaline Phosphatase Total Creatine Kinase Troponin T C-Reactive Protein Total Protein Albumin Triglycerides HDL Cholesterol Miscellaneous Test Crossmatch 09/14/17 09/14/17 09/15/17 12:11 17:47 00:03 WBC RBC Hgb Hct MCV MCH MCHC RDW Plt Count Lymph % (Auto) [place] % (Auto) [place] # Seg Neutrophils % Seg Neuts % (Manual) Lymphocytes % (Manual) Monocytes % (Manual) Nucleated RBC % Seg Neutrophils # Seg Neutrophils # Man Lymphocytes # (Manual) Monocytes # (Manual) Eosinophils # (Manual) Basophils # (Manual) PT INR POC ABG pH ABG pH POC ABG pCO2 POC ABG pO2 ABG pO2 ABG O2 Saturation ABG Base Excess ABG Hemoglobin Oxyhemoglobin Sodium Potassium Chloride Carbon Dioxide BUN Creatinine Glucose POC Glucose 251 H 289 H 229 H Calcium Phosphorus Magnesium Iron TIBC Ferritin Total Bilirubin AST ALT Alkaline Phosphatase Total Creatine Kinase Troponin T C-Reactive Protein Total Protein Albumin Triglycerides HDL Cholesterol Miscellaneous Test Crossmatch 09/15/17 09/15/17 09/15/17 05:00 05:00 05:30 WBC 11.7 H RBC 2.50 L Hgb 7.4 L Hct 22.7 L MCV MCH MCHC RDW 20.5 H Plt Count Lymph % (Auto) [place] % (Auto) [place] # Seg Neutrophils % Seg Neuts % (Manual) Lymphocytes % (Manual) 11.0 L Monocytes % (Manual) 11.0 H Nucleated RBC % Seg Neutrophils # Seg Neutrophils # Man Lymphocytes # (Manual) Monocytes # (Manual) 1.3 H Eosinophils # (Manual) Basophils # (Manual) PT INR POC ABG pH ABG pH POC ABG pCO2 POC ABG pO2 ABG pO2 ABG O2 Saturation ABG Base Excess ABG Hemoglobin Oxyhemoglobin Sodium Potassium Chloride 97.0 L Carbon Dioxide 21 L BUN 94 H Creatinine 2.4 H Glucose 194 H POC Glucose 225 H Calcium Phosphorus Magnesium Iron TIBC Ferritin Total Bilirubin AST ALT Alkaline Phosphatase Total Creatine Kinase Troponin T C-Reactive Protein Total Protein Albumin Triglycerides HDL Cholesterol Miscellaneous Test Crossmatch 09/15/17 09/15/17 09/15/17 07:48 11:38 12:45 WBC RBC 1.93 L Hgb 5.7 L* Hct 17.1 L* MCV MCH MCHC RDW 20.2 H Plt Count 125 L Lymph % (Auto) [place] % (Auto) [place] # Seg Neutrophils % Seg Neuts % (Manual) 79.0 H Lymphocytes % (Manual) 8.0 L Monocytes % (Manual) Nucleated RBC % Seg Neutrophils # Seg Neutrophils # Man Lymphocytes # (Manual) 0.8 L Monocytes # (Manual) Eosinophils # (Manual) Basophils # (Manual) PT INR POC ABG pH ABG pH POC ABG pCO2 POC ABG pO2 ABG pO2 ABG O2 Saturation ABG Base Excess ABG Hemoglobin Oxyhemoglobin Sodium Potassium Chloride Carbon Dioxide BUN Creatinine Glucose POC Glucose 245 H 253 H Calcium Phosphorus Magnesium Iron TIBC Ferritin Total Bilirubin AST ALT Alkaline Phosphatase Total Creatine Kinase Troponin T C-Reactive Protein Total Protein Albumin Triglycerides HDL Cholesterol Miscellaneous Test Crossmatch 09/15/17 09/15/17 09/15/17 12:45 12:45 22:25 WBC 19.6 H RBC 3.32 L Hgb 10.0 L D Hct 29.3 L D MCV MCH MCHC RDW 17.0 H Plt Count 123 L Lymph % (Auto) [place] % (Auto) [place] # Seg Neutrophils % Seg Neuts % (Manual) Lymphocytes % (Manual) 12.0 L Monocytes % (Manual) Nucleated RBC % 5.0 H Seg Neutrophils # Seg Neutrophils # Man 11.0 H Lymphocytes # (Manual) Monocytes # (Manual) 1.2 H Eosinophils # (Manual) Basophils # (Manual) PT 15.4 H INR 1.16 H POC ABG pH ABG pH POC ABG pCO2 POC ABG pO2 ABG pO2 ABG O2 Saturation ABG Base Excess ABG Hemoglobin Oxyhemoglobin Sodium Potassium Chloride Carbon Dioxide BUN Creatinine Glucose POC Glucose Calcium Phosphorus Magnesium Iron TIBC Ferritin Total Bilirubin AST ALT Alkaline Phosphatase Total Creatine Kinase Troponin T C-Reactive Protein Total Protein Albumin Triglycerides HDL Cholesterol Miscellaneous Test Crossmatch See Detail 09/15/17 09/15/17 09/16/17 22:25 23:38 01:26 WBC RBC Hgb Hct MCV MCH MCHC RDW Plt Count Lymph % (Auto) [place] % (Auto) [place] # Seg Neutrophils % Seg Neuts % (Manual) Lymphocytes % (Manual) Monocytes % (Manual) Nucleated RBC % Seg Neutrophils # Seg Neutrophils # Man Lymphocytes # (Manual) Monocytes # (Manual) Eosinophils # (Manual) Basophils # (Manual) PT INR POC ABG pH ABG pH POC ABG pCO2 POC ABG pO2 ABG pO2 ABG O2 Saturation ABG Base Excess ABG Hemoglobin Oxyhemoglobin Sodium Potassium Chloride Carbon Dioxide 17 L BUN 100 H Creatinine 2.6 H Glucose POC Glucose 58 L 132 H Calcium 8.3 L Phosphorus Magnesium 1.60 L Iron TIBC Ferritin Total Bilirubin 2.80 H AST 118 H ALT Alkaline Phosphatase 316 H Total Creatine Kinase Troponin T C-Reactive Protein Total Protein 4.0 L Albumin 1.8 L Triglycerides HDL Cholesterol Miscellaneous Test Crossmatch 09/16/17 09/16/17 09/16/17 05:30 05:30 05:54 WBC 24.6 H RBC 3.22 L Hgb 9.8 L Hct 28.6 L MCV MCH MCHC RDW 17.4 H Plt Count 127 L Lymph % (Auto) [place] % (Auto) [place] # Seg Neutrophils % Seg Neuts % (Manual) Lymphocytes % (Manual) Monocytes % (Manual) Nucleated RBC % Seg Neutrophils # Seg Neutrophils # Man Lymphocytes # (Manual) Monocytes # (Manual) Eosinophils # (Manual) Basophils # (Manual) PT INR POC ABG pH ABG pH POC ABG pCO2 POC ABG pO2 ABG pO2 ABG O2 Saturation ABG Base Excess ABG Hemoglobin Oxyhemoglobin Sodium Potassium Chloride Carbon Dioxide 18 L BUN 109 H Creatinine 2.5 H Glucose 140 H POC Glucose 154 H Calcium Phosphorus 4.80 H Magnesium Iron TIBC Ferritin Total Bilirubin 2.40 H AST 90 H ALT Alkaline Phosphatase 298 H Total Creatine Kinase 20 L Troponin T C-Reactive Protein Total Protein 4.1 L Albumin 1.8 L Triglycerides HDL Cholesterol Miscellaneous Test Crossmatch 09/16/17 09/16/17 09/16/17 11:49 17:04 23:18 WBC RBC Hgb Hct MCV MCH MCHC RDW Plt Count Lymph % (Auto) [place] % (Auto) [place] # Seg Neutrophils % Seg Neuts % (Manual) Lymphocytes % (Manual) Monocytes % (Manual) Nucleated RBC % Seg Neutrophils # Seg Neutrophils # Man Lymphocytes # (Manual) Monocytes # (Manual) Eosinophils # (Manual) Basophils # (Manual) PT INR POC ABG pH ABG pH POC ABG pCO2 POC ABG pO2 ABG pO2 ABG O2 Saturation ABG Base Excess ABG Hemoglobin Oxyhemoglobin Sodium Potassium Chloride Carbon Dioxide BUN Creatinine Glucose POC Glucose 167 H 156 H 162 H Calcium Phosphorus Magnesium Iron TIBC Ferritin Total Bilirubin AST ALT Alkaline Phosphatase Total Creatine Kinase Troponin T C-Reactive Protein Total Protein Albumin Triglycerides HDL Cholesterol Miscellaneous Test Crossmatch 09/17/17 09/17/17 09/17/17 05:27 06:10 06:10 WBC 34.6 H RBC 2.75 L Hgb 8.4 L Hct 24.8 L MCV MCH MCHC RDW 18.3 H Plt Count Lymph % (Auto) [place] % (Auto) [place] # Seg Neutrophils % Seg Neuts % (Manual) 77.0 H Lymphocytes % (Manual) 5.0 L Monocytes % (Manual) Nucleated RBC % 2.0 H Seg Neutrophils # Seg Neutrophils # Man 26.6 H Lymphocytes # (Manual) Monocytes # (Manual) 2.4 H Eosinophils # (Manual) Basophils # (Manual) PT INR POC ABG pH ABG pH POC ABG pCO2 POC ABG pO2 ABG pO2 ABG O2 Saturation ABG Base Excess ABG Hemoglobin Oxyhemoglobin Sodium Potassium Chloride Carbon Dioxide BUN 82 H Creatinine 2.1 H Glucose 252 H POC Glucose 243 H Calcium 8.3 L Phosphorus Magnesium Iron TIBC Ferritin Total Bilirubin AST ALT Alkaline Phosphatase Total Creatine Kinase Troponin T C-Reactive Protein Total Protein Albumin Triglycerides HDL Cholesterol Miscellaneous Test Crossmatch 09/17/17 09/17/17 09/18/17 11:42 17:12 00:08 WBC RBC Hgb Hct MCV MCH MCHC RDW Plt Count Lymph % (Auto) [place] % (Auto) [place] # Seg Neutrophils % Seg Neuts % (Manual) Lymphocytes % (Manual) Monocytes % (Manual) Nucleated RBC % Seg Neutrophils # Seg Neutrophils # Man Lymphocytes # (Manual) Monocytes # (Manual) Eosinophils # (Manual) Basophils # (Manual) PT INR POC ABG pH ABG pH POC ABG pCO2 POC ABG pO2 ABG pO2 ABG O2 Saturation ABG Base Excess ABG Hemoglobin Oxyhemoglobin Sodium Potassium Chloride Carbon Dioxide BUN Creatinine Glucose POC Glucose 232 H 309 H 275 H Calcium Phosphorus Magnesium Iron TIBC Ferritin Total Bilirubin AST ALT Alkaline Phosphatase Total Creatine Kinase Troponin T C-Reactive Protein Total Protein Albumin Triglycerides HDL Cholesterol Miscellaneous Test Crossmatch 09/18/17 09/18/17 09/18/17 05:10 05:10 05:23 WBC 24.4 H RBC 2.57 L Hgb 7.8 L Hct 23.2 L MCV MCH MCHC RDW 19.5 H Plt Count Lymph % (Auto) [place] % (Auto) [place] # Seg Neutrophils % Seg Neuts % (Manual) 78.0 H Lymphocytes % (Manual) 6.0 L Monocytes % (Manual) Nucleated RBC % 2.0 H Seg Neutrophils # Seg Neutrophils # Man 19.0 H Lymphocytes # (Manual) Monocytes # (Manual) Eosinophils # (Manual) Basophils # (Manual) PT INR POC ABG pH ABG pH POC ABG pCO2 POC ABG pO2 ABG pO2 ABG O2 Saturation ABG Base Excess ABG Hemoglobin Oxyhemoglobin Sodium Potassium Chloride Carbon Dioxide BUN 103 H Creatinine 2.8 H Glucose 173 H POC Glucose 224 H Calcium Phosphorus Magnesium Iron TIBC Ferritin Total Bilirubin AST ALT Alkaline Phosphatase Total Creatine Kinase Troponin T C-Reactive Protein Total Protein Albumin Triglycerides HDL Cholesterol Miscellaneous Test Crossmatch 09/18/17 09/18/17 09/18/17 13:59 18:35 23:19 WBC RBC Hgb Hct MCV MCH MCHC RDW Plt Count Lymph % (Auto) [place] % (Auto) [place] # Seg Neutrophils % Seg Neuts % (Manual) Lymphocytes % (Manual) Monocytes % (Manual) Nucleated RBC % Seg Neutrophils # Seg Neutrophils # Man Lymphocytes # (Manual) Monocytes # (Manual) Eosinophils # (Manual) Basophils # (Manual) PT INR POC ABG pH ABG pH POC ABG pCO2 POC ABG pO2 ABG pO2 ABG O2 Saturation ABG Base Excess ABG Hemoglobin Oxyhemoglobin Sodium Potassium Chloride Carbon Dioxide BUN Creatinine Glucose POC Glucose 268 H 220 H 188 H Calcium Phosphorus Magnesium Iron TIBC Ferritin Total Bilirubin AST ALT Alkaline Phosphatase Total Creatine Kinase Troponin T C-Reactive Protein Total Protein Albumin Triglycerides HDL Cholesterol Miscellaneous Test Crossmatch 09/19/17 09/19/17 09/19/17 05:45 06:00 11:41 WBC 17.6 H RBC 2.57 L Hgb 7.9 L Hct 23.2 L MCV MCH MCHC RDW 19.0 H Plt Count Lymph % (Auto) [place] % (Auto) [place] # Seg Neutrophils % Seg Neuts % (Manual) Lymphocytes % (Manual) 9.0 L Monocytes % (Manual) Nucleated RBC % Seg Neutrophils # Seg Neutrophils # Man 11.4 H Lymphocytes # (Manual) Monocytes # (Manual) 0.9 H Eosinophils # (Manual) Basophils # (Manual) PT INR POC ABG pH ABG pH POC ABG pCO2 POC ABG pO2 ABG pO2 ABG O2 Saturation ABG Base Excess ABG Hemoglobin Oxyhemoglobin Sodium Potassium Chloride Carbon Dioxide BUN Creatinine Glucose POC Glucose 178 H 126 H Calcium Phosphorus Magnesium Iron TIBC Ferritin Total Bilirubin AST ALT Alkaline Phosphatase Total Creatine Kinase Troponin T C-Reactive Protein Total Protein Albumin Triglycerides HDL Cholesterol Miscellaneous Test Crossmatch 09/19/17 09/19/17 09/20/17 17:08 23:46 04:46 WBC RBC Hgb Hct MCV MCH MCHC RDW Plt Count Lymph % (Auto) [place] % (Auto) [place] # Seg Neutrophils % Seg Neuts % (Manual) Lymphocytes % (Manual) Monocytes % (Manual) Nucleated RBC % Seg Neutrophils # Seg Neutrophils # Man Lymphocytes # (Manual) Monocytes # (Manual) Eosinophils # (Manual) Basophils # (Manual) PT INR POC ABG pH ABG pH POC ABG pCO2 POC ABG pO2 ABG pO2 ABG O2 Saturation ABG Base Excess ABG Hemoglobin Oxyhemoglobin Sodium Potassium 5.2 H D Chloride 97.4 L Carbon Dioxide 20 L BUN 98 H Creatinine 2.4 H Glucose 187 H POC Glucose 263 H 161 H Calcium Phosphorus Magnesium Iron TIBC Ferritin Total Bilirubin AST ALT Alkaline Phosphatase Total Creatine Kinase Troponin T C-Reactive Protein Total Protein Albumin Triglycerides HDL Cholesterol Miscellaneous Test Crossmatch 09/20/17 09/20/17 09/20/17 05:38 11:36 11:41 WBC 24.5 H RBC 2.84 L Hgb 8.2 L Hct 26.2 L MCV MCH MCHC RDW 20.0 H Plt Count 470 H Lymph % (Auto) [place] % (Auto) [place] # Seg Neutrophils % Seg Neuts % (Manual) Lymphocytes % (Manual) Monocytes % (Manual) Nucleated RBC % Seg Neutrophils # Seg Neutrophils # Man Lymphocytes # (Manual) Monocytes # (Manual) Eosinophils # (Manual) Basophils # (Manual) PT INR POC ABG pH ABG pH POC ABG pCO2 POC ABG pO2 ABG pO2 ABG O2 Saturation ABG Base Excess ABG Hemoglobin Oxyhemoglobin Sodium Potassium Chloride Carbon Dioxide BUN Creatinine Glucose POC Glucose 215 H 220 H Calcium Phosphorus Magnesium Iron TIBC Ferritin Total Bilirubin AST ALT Alkaline Phosphatase Total Creatine Kinase Troponin T C-Reactive Protein Total Protein Albumin Triglycerides HDL Cholesterol Miscellaneous Test Crossmatch 09/20/17 09/21/17 09/21/17 17:45 00:51 04:00 WBC RBC Hgb Hct MCV MCH MCHC RDW Plt Count Lymph % (Auto) [place] % (Auto) [place] # Seg Neutrophils % Seg Neuts % (Manual) Lymphocytes % (Manual) Monocytes % (Manual) Nucleated RBC % Seg Neutrophils # Seg Neutrophils # Man Lymphocytes # (Manual) Monocytes # (Manual) Eosinophils # (Manual) Basophils # (Manual) PT INR POC ABG pH ABG pH POC ABG pCO2 POC ABG pO2 ABG pO2 ABG O2 Saturation ABG Base Excess ABG Hemoglobin Oxyhemoglobin Sodium Potassium 3.2 L D Chloride 96.4 L Carbon Dioxide BUN 63 H Creatinine 1.8 H Glucose 204 H POC Glucose 122 H 137 H Calcium 8.3 L Phosphorus 2.10 L D Magnesium 1.50 L Iron TIBC Ferritin Total Bilirubin AST ALT Alkaline Phosphatase Total Creatine Kinase Troponin T C-Reactive Protein Total Protein Albumin Triglycerides HDL Cholesterol Miscellaneous Test Crossmatch 09/21/17 09/21/17 09/21/17 05:45 08:30 11:50 WBC 27.5 H RBC 2.52 L Hgb 7.7 L Hct 22.8 L MCV MCH MCHC RDW 19.2 H Plt Count 457 H Lymph % (Auto) [place] % (Auto) [place] # Seg Neutrophils % Seg Neuts % (Manual) Lymphocytes % (Manual) Monocytes % (Manual) Nucleated RBC % Seg Neutrophils # Seg Neutrophils # Man Lymphocytes # (Manual) Monocytes # (Manual) Eosinophils # (Manual) Basophils # (Manual) PT INR POC ABG pH ABG pH POC ABG pCO2 POC ABG pO2 ABG pO2 ABG O2 Saturation ABG Base Excess ABG Hemoglobin Oxyhemoglobin Sodium Potassium Chloride Carbon Dioxide BUN Creatinine Glucose POC Glucose 243 H Calcium Phosphorus Magnesium Iron TIBC Ferritin Total Bilirubin AST ALT Alkaline Phosphatase Total Creatine Kinase Troponin T C-Reactive Protein Total Protein Albumin Triglycerides HDL Cholesterol Miscellaneous Test Crossmatch See Detail 09/21/17 09/21/17 09/22/17 13:03 16:39 00:09 WBC RBC Hgb Hct MCV MCH MCHC RDW Plt Count Lymph % (Auto) [place] % (Auto) [place] # Seg Neutrophils % Seg Neuts % (Manual) Lymphocytes % (Manual) Monocytes % (Manual) Nucleated RBC % Seg Neutrophils # Seg Neutrophils # Man Lymphocytes # (Manual) Monocytes # (Manual) Eosinophils # (Manual) Basophils # (Manual) PT INR POC ABG pH ABG pH POC ABG pCO2 POC ABG pO2 ABG pO2 ABG O2 Saturation ABG Base Excess ABG Hemoglobin Oxyhemoglobin Sodium Potassium Chloride Carbon Dioxide BUN Creatinine Glucose POC Glucose 271 H 160 H 191 H Calcium Phosphorus Magnesium Iron TIBC Ferritin Total Bilirubin AST ALT Alkaline Phosphatase Total Creatine Kinase Troponin T C-Reactive Protein Total Protein Albumin Triglycerides HDL Cholesterol Miscellaneous Test Crossmatch 09/22/17 09/22/17 09/22/17 03:37 05:40 07:35 WBC 29.7 H RBC 2.71 L Hgb 8.1 L Hct 24.1 L MCV MCH MCHC RDW 19.6 H Plt Count 491 H Lymph % (Auto) [place] % (Auto) [place] # Seg Neutrophils % Seg Neuts % (Manual) 70.5 H Lymphocytes % (Manual) 12.5 L Monocytes % (Manual) 10.0 H Nucleated RBC % 2.0 H Seg Neutrophils # Seg Neutrophils # Man 20.9 H Lymphocytes # (Manual) Monocytes # (Manual) 3.0 H Eosinophils # (Manual) Basophils # (Manual) PT INR POC ABG pH ABG pH POC ABG pCO2 POC ABG pO2 ABG pO2 ABG O2 Saturation ABG Base Excess ABG Hemoglobin Oxyhemoglobin Sodium Potassium 3.0 L Chloride 95.9 L Carbon Dioxide BUN 74 H Creatinine 2.1 H Glucose 126 H POC Glucose 150 H Calcium Phosphorus 2.10 L Magnesium 1.40 L Iron TIBC Ferritin Total Bilirubin AST ALT Alkaline Phosphatase 311 H Total Creatine Kinase Troponin T C-Reactive Protein Total Protein 4.4 L Albumin 2.0 L Triglycerides HDL Cholesterol Miscellaneous Test Crossmatch 09/22/17 09/23/17 09/23/17 12:20 05:02 05:02 WBC 37.5 H RBC 2.54 L Hgb 7.3 L Hct 22.9 L MCV MCH MCHC RDW 19.4 H Plt Count 471 H Lymph % (Auto) [place] % (Auto) [place] # Seg Neutrophils % Seg Neuts % (Manual) Lymphocytes % (Manual) 8.0 L Monocytes % (Manual) Nucleated RBC % 1.0 H Seg Neutrophils # Seg Neutrophils # Man 15.0 H Lymphocytes # (Manual) Monocytes # (Manual) 1.9 H Eosinophils # (Manual) Basophils # (Manual) PT INR POC ABG pH ABG pH POC ABG pCO2 POC ABG pO2 ABG pO2 ABG O2 Saturation ABG Base Excess ABG Hemoglobin Oxyhemoglobin Sodium 136 L Potassium 3.0 L Chloride 93.8 L Carbon Dioxide BUN 99 H Creatinine 2.7 H Glucose POC Glucose 106 H Calcium 8.2 L Phosphorus 2.40 L Magnesium Iron TIBC Ferritin Total Bilirubin AST ALT Alkaline Phosphatase Total Creatine Kinase Troponin T C-Reactive Protein Total Protein Albumin Triglycerides HDL Cholesterol Miscellaneous Test Crossmatch 09/23/17 09/23/17 09/23/17 05:39 11:21 18:19 WBC RBC Hgb Hct MCV MCH MCHC RDW Plt Count Lymph % (Auto) [place] % (Auto) [place] # Seg Neutrophils % Seg Neuts % (Manual) Lymphocytes % (Manual) Monocytes % (Manual) Nucleated RBC % Seg Neutrophils # Seg Neutrophils # Man Lymphocytes # (Manual) Monocytes # (Manual) Eosinophils # (Manual) Basophils # (Manual) PT INR POC ABG pH ABG pH POC ABG pCO2 POC ABG pO2 ABG pO2 ABG O2 Saturation ABG Base Excess ABG Hemoglobin Oxyhemoglobin Sodium Potassium Chloride Carbon Dioxide BUN Creatinine Glucose POC Glucose 118 H 130 H 189 H Calcium Phosphorus Magnesium Iron TIBC Ferritin Total Bilirubin AST ALT Alkaline Phosphatase Total Creatine Kinase Troponin T C-Reactive Protein Total Protein Albumin Triglycerides HDL Cholesterol Miscellaneous Test Crossmatch 09/23/17 09/24/17 09/24/17 23:55 04:00 04:00 WBC 37.8 H RBC 2.76 L Hgb 8.1 L Hct 24.8 L MCV MCH MCHC RDW 19.8 H Plt Count 539 H Lymph % (Auto) [place] % (Auto) [place] # Seg Neutrophils % Seg Neuts % (Manual) Lymphocytes % (Manual) 4.0 L Monocytes % (Manual) Nucleated RBC % 6.0 H Seg Neutrophils # Seg Neutrophils # Man 19.3 H Lymphocytes # (Manual) Monocytes # (Manual) 1.5 H Eosinophils # (Manual) Basophils # (Manual) 0.4 H PT INR POC ABG pH ABG pH POC ABG pCO2 POC ABG pO2 ABG pO2 ABG O2 Saturation ABG Base Excess ABG Hemoglobin Oxyhemoglobin Sodium Potassium 3.5 L Chloride 95.2 L Carbon Dioxide BUN 67 H Creatinine 1.9 H Glucose 140 H POC Glucose 120 H Calcium 8.2 L Phosphorus 2.00 L Magnesium Iron TIBC Ferritin Total Bilirubin AST ALT Alkaline Phosphatase Total Creatine Kinase Troponin T C-Reactive Protein Total Protein Albumin Triglycerides HDL Cholesterol Miscellaneous Test Crossmatch 09/24/17 09/24/17 09/24/17 04:00 05:33 12:16 WBC RBC Hgb Hct MCV MCH MCHC RDW Plt Count Lymph % (Auto) [place] % (Auto) [place] # Seg Neutrophils % Seg Neuts % (Manual) Lymphocytes % (Manual) Monocytes % (Manual) Nucleated RBC % Seg Neutrophils # Seg Neutrophils # Man Lymphocytes # (Manual) Monocytes # (Manual) Eosinophils # (Manual) Basophils # (Manual) PT INR POC ABG pH ABG pH POC ABG pCO2 POC ABG pO2 ABG pO2 ABG O2 Saturation ABG Base Excess ABG Hemoglobin Oxyhemoglobin Sodium Potassium Chloride Carbon Dioxide BUN Creatinine Glucose POC Glucose 178 H 262 H Calcium Phosphorus Magnesium Iron TIBC Ferritin Total Bilirubin AST ALT Alkaline Phosphatase Total Creatine Kinase Troponin T C-Reactive Protein Total Protein Albumin Triglycerides HDL Cholesterol Miscellaneous Test Crossmatch See Detail 09/24/17 09/24/17 09/25/17 17:51 23:33 06:03 WBC RBC Hgb Hct MCV MCH MCHC RDW Plt Count Lymph % (Auto) [place] % (Auto) [place] # Seg Neutrophils % Seg Neuts % (Manual) Lymphocytes % (Manual) Monocytes % (Manual) Nucleated RBC % Seg Neutrophils # Seg Neutrophils # Man Lymphocytes # (Manual) Monocytes # (Manual) Eosinophils # (Manual) Basophils # (Manual) PT INR POC ABG pH ABG pH POC ABG pCO2 POC ABG pO2 ABG pO2 ABG O2 Saturation ABG Base Excess ABG Hemoglobin Oxyhemoglobin Sodium Potassium Chloride Carbon Dioxide BUN Creatinine Glucose POC Glucose 166 H 142 H 173 H Calcium Phosphorus Magnesium Iron TIBC Ferritin Total Bilirubin AST ALT Alkaline Phosphatase Total Creatine Kinase Troponin T C-Reactive Protein Total Protein Albumin Triglycerides HDL Cholesterol Miscellaneous Test Crossmatch 09/25/17 09/25/17 09/25/17 07:49 07:49 11:36 WBC 59.6 H* RBC 2.63 L Hgb 7.7 L Hct 26.0 L MCV 99 H MCH MCHC RDW 21.8 H Plt Count Lymph % (Auto) [place] % (Auto) [place] # Seg Neutrophils % Seg Neuts % (Manual) Lymphocytes % (Manual) 2.0 L Monocytes % (Manual) Nucleated RBC % 8.0 H Seg Neutrophils # Seg Neutrophils # Man 41.7 H Lymphocytes # (Manual) Monocytes # (Manual) 1.2 H Eosinophils # (Manual) Basophils # (Manual) PT INR POC ABG pH ABG pH POC ABG pCO2 POC ABG pO2 ABG pO2 ABG O2 Saturation ABG Base Excess ABG Hemoglobin Oxyhemoglobin Sodium Potassium 5.3 H D Chloride 97.7 L Carbon Dioxide 19 L BUN 90 H Creatinine 2.5 H Glucose 181 H POC Glucose 308 H Calcium 8.0 L Phosphorus Magnesium Iron TIBC Ferritin Total Bilirubin AST ALT Alkaline Phosphatase Total Creatine Kinase Troponin T C-Reactive Protein Total Protein Albumin Triglycerides HDL Cholesterol Miscellaneous Test Crossmatch 09/25/17 09/25/17 09/26/17 16:11 23:38 05:25 WBC 61.9 H* RBC 2.30 L Hgb 7.0 L Hct 21.4 L MCV MCH MCHC RDW 21.3 H Plt Count Lymph % (Auto) [place] % (Auto) [place] # Seg Neutrophils % Seg Neuts % (Manual) Lymphocytes % (Manual) 1.0 L Monocytes % (Manual) Nucleated RBC % 7.0 H Seg Neutrophils # Seg Neutrophils # Man 37.1 H Lymphocytes # (Manual) 0.6 L Monocytes # (Manual) 1.9 H Eosinophils # (Manual) Basophils # (Manual) PT INR POC ABG pH ABG pH POC ABG pCO2 POC ABG pO2 ABG pO2 ABG O2 Saturation ABG Base Excess ABG Hemoglobin Oxyhemoglobin Sodium Potassium Chloride Carbon Dioxide BUN Creatinine Glucose POC Glucose 249 H 263 H Calcium Phosphorus Magnesium Iron TIBC Ferritin Total Bilirubin AST ALT Alkaline Phosphatase Total Creatine Kinase Troponin T C-Reactive Protein Total Protein Albumin Triglycerides HDL Cholesterol Miscellaneous Test Crossmatch 09/26/17 09/26/17 09/26/17 05:25 05:32 11:33 WBC RBC Hgb Hct MCV MCH MCHC RDW Plt Count Lymph % (Auto) [place] % (Auto) [place] # Seg Neutrophils % Seg Neuts % (Manual) Lymphocytes % (Manual) Monocytes % (Manual) Nucleated RBC % Seg Neutrophils # Seg Neutrophils # Man Lymphocytes # (Manual) Monocytes # (Manual) Eosinophils # (Manual) Basophils # (Manual) PT INR POC ABG pH ABG pH POC ABG pCO2 POC ABG pO2 ABG pO2 ABG O2 Saturation ABG Base Excess ABG Hemoglobin Oxyhemoglobin Sodium Potassium Chloride Carbon Dioxide 21 L BUN 81 H Creatinine 2.3 H Glucose 178 H POC Glucose 225 H 246 H Calcium 8.1 L Phosphorus Magnesium Iron TIBC Ferritin Total Bilirubin AST ALT Alkaline Phosphatase Total Creatine Kinase Troponin T C-Reactive Protein Total Protein Albumin Triglycerides HDL Cholesterol Miscellaneous Test Crossmatch 09/26/17 09/27/17 09/27/17 17:43 00:11 04:00 WBC 63.0 H* RBC 2.23 L Hgb 6.3 L Hct 20.6 L MCV MCH MCHC RDW 20.6 H Plt Count Lymph % (Auto) [place] % (Auto) [place] # Seg Neutrophils % Seg Neuts % (Manual) Lymphocytes % (Manual) 3.0 L Monocytes % (Manual) Nucleated RBC % 6.0 H Seg Neutrophils # Seg Neutrophils # Man 40.3 H Lymphocytes # (Manual) Monocytes # (Manual) 4.4 H Eosinophils # (Manual) Basophils # (Manual) PT INR POC ABG pH ABG pH POC ABG pCO2 POC ABG pO2 ABG pO2 ABG O2 Saturation ABG Base Excess ABG Hemoglobin Oxyhemoglobin Sodium Potassium Chloride Carbon Dioxide BUN Creatinine Glucose POC Glucose 180 H 194 H Calcium Phosphorus Magnesium Iron TIBC Ferritin Total Bilirubin AST ALT Alkaline Phosphatase Total Creatine Kinase Troponin T C-Reactive Protein Total Protein Albumin Triglycerides HDL Cholesterol Miscellaneous Test Crossmatch 09/27/17 09/27/17 09/27/17 04:00 04:00 05:11 WBC RBC Hgb Hct MCV MCH MCHC RDW Plt Count Lymph % (Auto) [place] % (Auto) [place] # Seg Neutrophils % Seg Neuts % (Manual) Lymphocytes % (Manual) Monocytes % (Manual) Nucleated RBC % Seg Neutrophils # Seg Neutrophils # Man Lymphocytes # (Manual) Monocytes # (Manual) Eosinophils # (Manual) Basophils # (Manual) PT INR POC ABG pH ABG pH POC ABG pCO2 POC ABG pO2 ABG pO2 ABG O2 Saturation ABG Base Excess ABG Hemoglobin Oxyhemoglobin Sodium Potassium Chloride Carbon Dioxide 19 L BUN 102 H Creatinine 2.8 H Glucose 141 H POC Glucose 189 H Calcium 8.1 L Phosphorus Magnesium 2.40 H Iron TIBC Ferritin Total Bilirubin AST ALT Alkaline Phosphatase Total Creatine Kinase Troponin T C-Reactive Protein Total Protein Albumin Triglycerides HDL Cholesterol Miscellaneous Test Crossmatch 09/27/17 09/27/17 09/27/17 08:58 11:54 17:20 WBC RBC Hgb Hct MCV MCH MCHC RDW Plt Count Lymph % (Auto) [place] % (Auto) [place] # Seg Neutrophils % Seg Neuts % (Manual) Lymphocytes % (Manual) Monocytes % (Manual) Nucleated RBC % Seg Neutrophils # Seg Neutrophils # Man Lymphocytes # (Manual) Monocytes # (Manual) Eosinophils # (Manual) Basophils # (Manual) PT INR POC ABG pH ABG pH POC ABG pCO2 POC ABG pO2 ABG pO2 ABG O2 Saturation ABG Base Excess ABG Hemoglobin Oxyhemoglobin Sodium Potassium Chloride Carbon Dioxide BUN Creatinine Glucose POC Glucose 196 H 199 H Calcium Phosphorus Magnesium Iron TIBC Ferritin Total Bilirubin AST ALT Alkaline Phosphatase Total Creatine Kinase Troponin T C-Reactive Protein Total Protein Albumin Triglycerides HDL Cholesterol Miscellaneous Test Crossmatch See Detail 09/28/17 09/28/17 09/28/17 00:11 05:23 12:07 WBC RBC Hgb Hct MCV MCH MCHC RDW Plt Count Lymph % (Auto) [place] % (Auto) [place] # Seg Neutrophils % Seg Neuts % (Manual) Lymphocytes % (Manual) Monocytes % (Manual) Nucleated RBC % Seg Neutrophils # Seg Neutrophils # Man Lymphocytes # (Manual) Monocytes # (Manual) Eosinophils # (Manual) Basophils # (Manual) PT INR POC ABG pH ABG pH POC ABG pCO2 POC ABG pO2 ABG pO2 ABG O2 Saturation ABG Base Excess ABG Hemoglobin Oxyhemoglobin Sodium Potassium Chloride Carbon Dioxide BUN Creatinine Glucose POC Glucose 155 H 237 H 218 H Calcium Phosphorus Magnesium Iron TIBC Ferritin Total Bilirubin AST ALT Alkaline Phosphatase Total Creatine Kinase Troponin T C-Reactive Protein Total Protein Albumin Triglycerides HDL Cholesterol Miscellaneous Test Crossmatch 09/28/17 09/28/17 09/28/17 17:58 Unknown Unknown WBC 39.0 H RBC 3.10 L Hgb 9.6 L D Hct 27.6 L D MCV MCH MCHC 35 H RDW 17.1 H Plt Count Lymph % (Auto) [place] % (Auto) [place] # Seg Neutrophils % Seg Neuts % (Manual) 80.5 H Lymphocytes % (Manual) 0.5 L Monocytes % (Manual) Nucleated RBC % Seg Neutrophils # Seg Neutrophils # Man 31.4 H Lymphocytes # (Manual) 0.2 L Monocytes # (Manual) 2.5 H Eosinophils # (Manual) Basophils # (Manual) PT INR POC ABG pH ABG pH POC ABG pCO2 POC ABG pO2 ABG pO2 ABG O2 Saturation ABG Base Excess ABG Hemoglobin Oxyhemoglobin Sodium Potassium 3.4 L D Chloride Carbon Dioxide BUN 72 H Creatinine 2.0 H Glucose 194 H POC Glucose 108 H Calcium 7.4 L Phosphorus Magnesium Iron TIBC Ferritin Total Bilirubin AST ALT Alkaline Phosphatase Total Creatine Kinase Troponin T C-Reactive Protein Total Protein Albumin Triglycerides HDL Cholesterol Miscellaneous Test Crossmatch 09/29/17 09/29/17 09/29/17 00:12 06:00 06:00 WBC 28.0 H RBC 2.92 L Hgb 8.7 L Hct 26.5 L MCV MCH MCHC RDW 17.1 H Plt Count Lymph % (Auto) [place] % (Auto) [place] # Seg Neutrophils % Seg Neuts % (Manual) 74.5 H Lymphocytes % (Manual) 5.5 L Monocytes % (Manual) 10.5 H Nucleated RBC % Seg Neutrophils # Seg Neutrophils # Man 20.9 H Lymphocytes # (Manual) Monocytes # (Manual) 2.9 H Eosinophils # (Manual) Basophils # (Manual) PT INR POC ABG pH ABG pH POC ABG pCO2 POC ABG pO2 ABG pO2 ABG O2 Saturation ABG Base Excess ABG Hemoglobin Oxyhemoglobin Sodium Potassium Chloride 97.9 L Carbon Dioxide BUN 101 H Creatinine 2.5 H Glucose 177 H POC Glucose 117 H Calcium 7.6 L Phosphorus Magnesium Iron TIBC Ferritin Total Bilirubin AST ALT Alkaline Phosphatase Total Creatine Kinase Troponin T C-Reactive Protein Total Protein Albumin Triglycerides HDL Cholesterol Miscellaneous Test Crossmatch 09/29/17 09/29/17 09/29/17 06:27 11:50 17:27 WBC RBC Hgb Hct MCV MCH MCHC RDW Plt Count Lymph % (Auto) [place] % (Auto) [place] # Seg Neutrophils % Seg Neuts % (Manual) Lymphocytes % (Manual) Monocytes % (Manual) Nucleated RBC % Seg Neutrophils # Seg Neutrophils # Man Lymphocytes # (Manual) Monocytes # (Manual) Eosinophils # (Manual) Basophils # (Manual) PT INR POC ABG pH ABG pH POC ABG pCO2 POC ABG pO2 ABG pO2 ABG O2 Saturation ABG Base Excess ABG Hemoglobin Oxyhemoglobin Sodium Potassium Chloride Carbon Dioxide BUN Creatinine Glucose POC Glucose 183 H 209 H 150 H Calcium Phosphorus Magnesium Iron TIBC Ferritin Total Bilirubin AST ALT Alkaline Phosphatase Total Creatine Kinase Troponin T C-Reactive Protein Total Protein Albumin Triglycerides HDL Cholesterol Miscellaneous Test Crossmatch 09/30/17 09/30/17 09/30/17 05:20 05:20 05:31 WBC 23.0 H RBC 2.64 L Hgb 7.9 L Hct 23.9 L MCV MCH MCHC RDW 18.1 H Plt Count Lymph % (Auto) [place] % (Auto) [place] # Seg Neutrophils % Seg Neuts % (Manual) 29.0 L Lymphocytes % (Manual) Monocytes % (Manual) 11.0 H Nucleated RBC % Seg Neutrophils # Seg Neutrophils # Man Lymphocytes # (Manual) Monocytes # (Manual) 2.5 H Eosinophils # (Manual) Basophils # (Manual) PT INR POC ABG pH ABG pH POC ABG pCO2 POC ABG pO2 ABG pO2 ABG O2 Saturation ABG Base Excess ABG Hemoglobin Oxyhemoglobin Sodium Potassium Chloride 97.0 L Carbon Dioxide 20 L BUN 120 H Creatinine 2.9 H Glucose 126 H POC Glucose 143 H Calcium 8.2 L Phosphorus Magnesium Iron TIBC Ferritin Total Bilirubin AST ALT Alkaline Phosphatase Total Creatine Kinase Troponin T C-Reactive Protein Total Protein Albumin Triglycerides HDL Cholesterol Miscellaneous Test Crossmatch 09/30/17 09/30/17 10/01/17 11:24 23:40 05:45 WBC RBC Hgb Hct MCV MCH MCHC RDW Plt Count Lymph % (Auto) [place] % (Auto) [place] # Seg Neutrophils % Seg Neuts % (Manual) Lymphocytes % (Manual) Monocytes % (Manual) Nucleated RBC % Seg Neutrophils # Seg Neutrophils # Man Lymphocytes # (Manual) Monocytes # (Manual) Eosinophils # (Manual) Basophils # (Manual) PT INR POC ABG pH ABG pH POC ABG pCO2 POC ABG pO2 ABG pO2 ABG O2 Saturation ABG Base Excess ABG Hemoglobin Oxyhemoglobin Sodium Potassium Chloride Carbon Dioxide BUN 83 H Creatinine 2.2 H Glucose 140 H POC Glucose 197 H 121 H Calcium Phosphorus 2.40 L D Magnesium Iron TIBC Ferritin Total Bilirubin AST ALT Alkaline Phosphatase Total Creatine Kinase Troponin T C-Reactive Protein Total Protein Albumin Triglycerides HDL Cholesterol Miscellaneous Test Crossmatch 10/01/17 10/01/17 10/01/17 05:45 05:48 12:29 WBC 23.0 H RBC 2.60 L Hgb 7.8 L Hct 23.8 L MCV MCH MCHC RDW 17.5 H Plt Count Lymph % (Auto) [place] % (Auto) [place] # Seg Neutrophils % Seg Neuts % (Manual) 81.0 H Lymphocytes % (Manual) 2.0 L Monocytes % (Manual) 10.0 H Nucleated RBC % Seg Neutrophils # Seg Neutrophils # Man 18.6 H Lymphocytes # (Manual) 0.5 L Monocytes # (Manual) 2.3 H Eosinophils # (Manual) Basophils # (Manual) PT INR POC ABG pH ABG pH POC ABG pCO2 POC ABG pO2 ABG pO2 ABG O2 Saturation ABG Base Excess ABG Hemoglobin Oxyhemoglobin Sodium Potassium Chloride Carbon Dioxide BUN Creatinine Glucose POC Glucose 123 H 191 H Calcium Phosphorus Magnesium Iron TIBC Ferritin Total Bilirubin AST ALT Alkaline Phosphatase Total Creatine Kinase Troponin T C-Reactive Protein Total Protein Albumin Triglycerides HDL Cholesterol Miscellaneous Test Crossmatch 10/01/17 10/02/17 10/02/17 17:46 05:00 05:27 WBC RBC Hgb Hct MCV MCH MCHC RDW Plt Count Lymph % (Auto) [place] % (Auto) [place] # Seg Neutrophils % Seg Neuts % (Manual) Lymphocytes % (Manual) Monocytes % (Manual) Nucleated RBC % Seg Neutrophils # Seg Neutrophils # Man Lymphocytes # (Manual) Monocytes # (Manual) Eosinophils # (Manual) Basophils # (Manual) PT INR POC ABG pH ABG pH POC ABG pCO2 POC ABG pO2 ABG pO2 ABG O2 Saturation ABG Base Excess ABG Hemoglobin Oxyhemoglobin Sodium Potassium Chloride Carbon Dioxide BUN 108 H Creatinine 2.5 H Glucose 113 H POC Glucose 56 L 120 H Calcium Phosphorus Magnesium Iron TIBC Ferritin Total Bilirubin AST ALT Alkaline Phosphatase Total Creatine Kinase Troponin T C-Reactive Protein Total Protein Albumin Triglycerides HDL Cholesterol Miscellaneous Test Crossmatch 10/02/17 10/02/17 10/02/17 10:05 11:57 19:14 WBC 18.1 H RBC 2.67 L Hgb 8.0 L Hct 24.1 L MCV MCH MCHC RDW 17.1 H Plt Count Lymph % (Auto) [place] % (Auto) [place] # Seg Neutrophils % Seg Neuts % (Manual) Lymphocytes % (Manual) 5.0 L Monocytes % (Manual) 17.0 H Nucleated RBC % Seg Neutrophils # Seg Neutrophils # Man 12.5 H Lymphocytes # (Manual) 0.9 L Monocytes # (Manual) 3.1 H Eosinophils # (Manual) Basophils # (Manual) PT INR POC ABG pH ABG pH POC ABG pCO2 POC ABG pO2 ABG pO2 ABG O2 Saturation ABG Base Excess ABG Hemoglobin Oxyhemoglobin Sodium Potassium Chloride Carbon Dioxide BUN Creatinine Glucose POC Glucose 162 H 189 H Calcium Phosphorus Magnesium Iron TIBC Ferritin Total Bilirubin AST ALT Alkaline Phosphatase Total Creatine Kinase Troponin T C-Reactive Protein Total Protein Albumin Triglycerides HDL Cholesterol Miscellaneous Test Crossmatch 10/02/17 10/03/17 10/03/17 23:50 04:00 06:14 WBC 16.2 H RBC 2.76 L Hgb 8.0 L Hct 24.9 L MCV MCH MCHC RDW 17.1 H Plt Count Lymph % (Auto) [place] % (Auto) [place] # Seg Neutrophils % Seg Neuts % (Manual) 71.0 H Lymphocytes % (Manual) 9.0 L Monocytes % (Manual) 17.0 H Nucleated RBC % Seg Neutrophils # Seg Neutrophils # Man 11.5 H Lymphocytes # (Manual) Monocytes # (Manual) 2.8 H Eosinophils # (Manual) Basophils # (Manual) PT INR POC ABG pH ABG pH POC ABG pCO2 POC ABG pO2 ABG pO2 ABG O2 Saturation ABG Base Excess ABG Hemoglobin Oxyhemoglobin Sodium Potassium Chloride Carbon Dioxide BUN Creatinine Glucose POC Glucose 159 H 162 H Calcium Phosphorus Magnesium Iron TIBC Ferritin Total Bilirubin AST ALT Alkaline Phosphatase Total Creatine Kinase Troponin T C-Reactive Protein Total Protein Albumin Triglycerides HDL Cholesterol Miscellaneous Test Crossmatch 10/03/17 10/03/17 10/03/17 10:05 12:03 17:10 WBC RBC Hgb Hct MCV MCH MCHC RDW Plt Count Lymph % (Auto) [place] % (Auto) [place] # Seg Neutrophils % Seg Neuts % (Manual) Lymphocytes % (Manual) Monocytes % (Manual) Nucleated RBC % Seg Neutrophils # Seg Neutrophils # Man Lymphocytes # (Manual) Monocytes # (Manual) Eosinophils # (Manual) Basophils # (Manual) PT INR POC ABG pH ABG pH POC ABG pCO2 POC ABG pO2 ABG pO2 ABG O2 Saturation ABG Base Excess ABG Hemoglobin Oxyhemoglobin Sodium Potassium Chloride Carbon Dioxide BUN Creatinine Glucose POC Glucose 148 H 168 H 42 L Calcium Phosphorus Magnesium Iron TIBC Ferritin Total Bilirubin AST ALT Alkaline Phosphatase Total Creatine Kinase Troponin T C-Reactive Protein Total Protein Albumin Triglycerides HDL Cholesterol Miscellaneous Test Crossmatch 10/03/17 10/04/17 10/04/17 23:35 00:40 04:47 WBC RBC Hgb Hct MCV MCH MCHC RDW Plt Count Lymph % (Auto) [place] % (Auto) [place] # Seg Neutrophils % Seg Neuts % (Manual) Lymphocytes % (Manual) Monocytes % (Manual) Nucleated RBC % Seg Neutrophils # Seg Neutrophils # Man Lymphocytes # (Manual) Monocytes # (Manual) Eosinophils # (Manual) Basophils # (Manual) PT INR POC ABG pH ABG pH POC ABG pCO2 POC ABG pO2 ABG pO2 ABG O2 Saturation ABG Base Excess ABG Hemoglobin Oxyhemoglobin Sodium Potassium Chloride 96.3 L Carbon Dioxide BUN 92 H Creatinine 2.4 H Glucose 111 H POC Glucose 50 L 113 H Calcium 8.3 L Phosphorus Magnesium 1.50 L Iron TIBC Ferritin Total Bilirubin AST ALT Alkaline Phosphatase Total Creatine Kinase Troponin T C-Reactive Protein Total Protein Albumin Triglycerides HDL Cholesterol Miscellaneous Test Crossmatch 10/04/17 10/04/17 10/04/17 04:47 05:19 09:53 WBC 18.9 H RBC 2.58 L Hgb 7.8 L Hct 23.1 L MCV MCH MCHC RDW 17.2 H Plt Count Lymph % (Auto) [place] % (Auto) [place] # Seg Neutrophils % Seg Neuts % (Manual) Lymphocytes % (Manual) 11.0 L Monocytes % (Manual) 22.0 H Nucleated RBC % Seg Neutrophils # Seg Neutrophils # Man 10.4 H Lymphocytes # (Manual) Monocytes # (Manual) 4.2 H Eosinophils # (Manual) Basophils # (Manual) PT INR POC ABG pH ABG pH POC ABG pCO2 POC ABG pO2 ABG pO2 ABG O2 Saturation ABG Base Excess ABG Hemoglobin Oxyhemoglobin Sodium Potassium Chloride Carbon Dioxide BUN Creatinine Glucose POC Glucose 109 H 185 H Calcium Phosphorus Magnesium Iron TIBC Ferritin Total Bilirubin AST ALT Alkaline Phosphatase Total Creatine Kinase Troponin T C-Reactive Protein Total Protein Albumin Triglycerides HDL Cholesterol Miscellaneous Test Crossmatch 10/04/17 10/04/17 10/04/17 12:12 17:01 23:19 WBC RBC Hgb Hct MCV MCH MCHC RDW Plt Count Lymph % (Auto) [place] % (Auto) [place] # Seg Neutrophils % Seg Neuts % (Manual) Lymphocytes % (Manual) Monocytes % (Manual) Nucleated RBC % Seg Neutrophils # Seg Neutrophils # Man Lymphocytes # (Manual) Monocytes # (Manual) Eosinophils # (Manual) Basophils # (Manual) PT INR POC ABG pH ABG pH POC ABG pCO2 POC ABG pO2 ABG pO2 ABG O2 Saturation ABG Base Excess ABG Hemoglobin Oxyhemoglobin Sodium Potassium Chloride Carbon Dioxide BUN Creatinine Glucose POC Glucose 216 H 244 H 241 H Calcium Phosphorus Magnesium Iron TIBC Ferritin Total Bilirubin AST ALT Alkaline Phosphatase Total Creatine Kinase Troponin T C-Reactive Protein Total Protein Albumin Triglycerides HDL Cholesterol Miscellaneous Test Crossmatch 10/05/17 10/05/17 10/05/17 04:00 04:00 05:16 WBC 14.3 H RBC 2.56 L Hgb 7.7 L Hct 23.2 L MCV MCH MCHC RDW 17.5 H Plt Count Lymph % (Auto) [place] % (Auto) [place] # Seg Neutrophils % Seg Neuts % (Manual) 25.0 L Lymphocytes % (Manual) 12.0 L Monocytes % (Manual) 13.0 H Nucleated RBC % Seg Neutrophils # Seg Neutrophils # Man Lymphocytes # (Manual) Monocytes # (Manual) 1.9 H Eosinophils # (Manual) Basophils # (Manual) PT INR POC ABG pH ABG pH POC ABG pCO2 POC ABG pO2 ABG pO2 ABG O2 Saturation ABG Base Excess ABG Hemoglobin Oxyhemoglobin Sodium Potassium Chloride Carbon Dioxide 20 L BUN 113 H Creatinine 3.0 H Glucose 229 H POC Glucose 247 H Calcium Phosphorus Magnesium Iron TIBC Ferritin Total Bilirubin AST ALT Alkaline Phosphatase Total Creatine Kinase Troponin T C-Reactive Protein Total Protein Albumin Triglycerides HDL Cholesterol Miscellaneous Test Crossmatch 10/05/17 10/05/17 10/06/17 12:28 18:26 00:00 WBC RBC Hgb Hct MCV MCH MCHC RDW Plt Count Lymph % (Auto) [place] % (Auto) [place] # Seg Neutrophils % Seg Neuts % (Manual) Lymphocytes % (Manual) Monocytes % (Manual) Nucleated RBC % Seg Neutrophils # Seg Neutrophils # Man Lymphocytes # (Manual) Monocytes # (Manual) Eosinophils # (Manual) Basophils # (Manual) PT INR POC ABG pH ABG pH POC ABG pCO2 POC ABG pO2 ABG pO2 ABG O2 Saturation ABG Base Excess ABG Hemoglobin Oxyhemoglobin Sodium Potassium Chloride Carbon Dioxide BUN Creatinine Glucose POC Glucose 237 H 127 H 110 H Calcium Phosphorus Magnesium Iron TIBC Ferritin Total Bilirubin AST ALT Alkaline Phosphatase Total Creatine Kinase Troponin T C-Reactive Protein Total Protein Albumin Triglycerides HDL Cholesterol Miscellaneous Test Crossmatch 10/06/17 10/06/17 10/06/17 04:07 05:16 12:35 WBC RBC Hgb Hct MCV MCH MCHC RDW Plt Count Lymph % (Auto) [place] % (Auto) [place] # Seg Neutrophils % Seg Neuts % (Manual) Lymphocytes % (Manual) Monocytes % (Manual) Nucleated RBC % Seg Neutrophils # Seg Neutrophils # Man Lymphocytes # (Manual) Monocytes # (Manual) Eosinophils # (Manual) Basophils # (Manual) PT INR POC ABG pH ABG pH POC ABG pCO2 POC ABG pO2 ABG pO2 ABG O2 Saturation ABG Base Excess ABG Hemoglobin Oxyhemoglobin Sodium Potassium 3.4 L Chloride 95.4 L Carbon Dioxide 21 L BUN 63 H Creatinine 1.9 H Glucose 45 L POC Glucose 107 H 173 H Calcium 8.3 L Phosphorus 1.80 L D Magnesium Iron TIBC Ferritin Total Bilirubin AST ALT Alkaline Phosphatase 353 H Total Creatine Kinase Troponin T C-Reactive Protein Total Protein Albumin 1.6 L Triglycerides HDL Cholesterol Miscellaneous Test Crossmatch 10/06/17 10/06/17 10/07/17 17:23 23:30 05:01 WBC RBC Hgb Hct MCV MCH MCHC RDW Plt Count Lymph % (Auto) [place] % (Auto) [place] # Seg Neutrophils % Seg Neuts % (Manual) Lymphocytes % (Manual) Monocytes % (Manual) Nucleated RBC % Seg Neutrophils # Seg Neutrophils # Man Lymphocytes # (Manual) Monocytes # (Manual) Eosinophils # (Manual) Basophils # (Manual) PT INR POC ABG pH ABG pH POC ABG pCO2 POC ABG pO2 ABG pO2 ABG O2 Saturation ABG Base Excess ABG Hemoglobin Oxyhemoglobin Sodium Potassium Chloride Carbon Dioxide BUN Creatinine Glucose POC Glucose 123 H 123 H 116 H Calcium Phosphorus Magnesium Iron TIBC Ferritin Total Bilirubin AST ALT Alkaline Phosphatase Total Creatine Kinase Troponin T C-Reactive Protein Total Protein Albumin Triglycerides HDL Cholesterol Miscellaneous Test Crossmatch 10/07/17 10/07/17 05:20 05:20 WBC 21.4 H RBC 2.45 L Hgb 7.0 L Hct 22.0 L MCV MCH MCHC RDW 16.8 H Plt Count Lymph % (Auto) [place] % (Auto) [place] # Seg Neutrophils % Seg Neuts % (Manual) Lymphocytes % (Manual) Monocytes % (Manual) Nucleated RBC % Seg Neutrophils # Seg Neutrophils # Man Lymphocytes # (Manual) Monocytes # (Manual) Eosinophils # (Manual) Basophils # (Manual) PT INR POC ABG pH ABG pH POC ABG pCO2 POC ABG pO2 ABG pO2 ABG O2 Saturation ABG Base Excess ABG Hemoglobin Oxyhemoglobin Sodium Potassium Chloride Carbon Dioxide 21 L BUN 83 H Creatinine 2.5 H Glucose 102 H POC Glucose Calcium 8.3 L Phosphorus 4.60 H D Magnesium Iron TIBC Ferritin Total Bilirubin AST ALT Alkaline Phosphatase Total Creatine Kinase Troponin T C-Reactive Protein Total Protein Albumin Triglycerides HDL Cholesterol Miscellaneous Test Crossmatch Chest x-ray: report reviewed, image reviewed
[2017-10-07] MEDS ORDERED: NACL 0.9% 100 ML IV PRN (10:00)
[2017-10-07 10:02] LABS: Anisocytosis 1+; Basophils % (Manual) 0 % (0.0-1.8); Diff Status Complete; Dohle Bodies 1+; Eosinophils % (Manual) 0 % (0.0-4.3); Hypochromasia 1+; Toxic Vacuolation Few
[2017-10-07 10:03] LABS: Polychromasia Few
--- NOTE | 2017-10-07 10:11 | Progress Note ---
Assessment and Plan 62 y.o. F s/p ex lap, repair of enterotomy, then s/p ex lap, transverse colon resection, colostomy creation, and s/p ex lap, abdominal wash out and abdominal wall closure after wound dehiscence 3 weeks s/p ex lap for gastric perforation and sbo. complicated patient with hx of several abdominal procedures this admission, starting with surgery for SBO and gastric perforation. Most recently, s/p exlap and repair of enterotomy and midline closure with biologic mesh due to dehiscence -G tube study to eval if leak: per g tube study- contrast remains in stomach. Methylene blue irrigated in G tube then clamped. no apparent blue noted in midline or MERVIN drains. No blue in the MERVIN drains in the am or at midline. G tube now to gravity No leak noted. May restart tube feeds at 10cc. tube feeds started overnight, no residuals noted. - due to increased drainage from midline and at JPs- will obtain ct abd/pelvis with IV contrast and PO-= upper fluid collection with contrast noted outside the lumen. Contrast noted near spleen. there are air bubbles next to G tube site. the G tube site is a possible source of leak. However, there is pooling of enteric contents in the inferior portion of the incision noted this am. The JPs are cream colored likely from gastrograffin studies over the weekend. The enteric contents noted in the midline are concerning for bowel leak or fistula. Her continues fever and rising leukocytosis lean towards a bowel leak. I spoke with the who is currently at the hospital speaking with hospice. I also spoke with her daughter via phone and discussed her worsening status. The daughter is on the way to the hospital now as well. We discussed the patient's status continues to worsen and not improve despite every effort to improve her condition. leukocytosis- abx per ID: Will obtain cultures from fluid drained +cultures- yeast. micafungin Nurtrition: TPN for nutritional support. Hold tube feeds for now. wound care: -BID dressing changes. -santyl to border of wound at site of fat necrosis. -Monitor ostomy site - mucocutaneous seperation occuring medial portion of ostomy. Wound care aware and will monitor Renal : HD per renal DVT proph: scds GI: PPI. - Patient Problems (1) Peritonitis (acute) generalized Current Visit: Yes Status: Acute Subjective Narrative: Overnight dressing changed however this am it is already saturated. Tmax 102.3, continues to be on levo at 10. G tube to drainage overnight and NG placed to low intermit. wall suction. Ncc serosang G tube 165cc bilious Upper MERVIN: 105cc cream/coleman Lower MERVIN: 250cc cream/coleman Objective Vital Signs - 12hr 10/06/17 10/06/17 10/06/17 22:05 22:15 22:30 Temperature Pulse Rate 105 H 116 H 118 H Pulse Rate [ Apical] Respiratory 19 35 H 33 H Rate Blood Pressure 105/52 102/56 106/55 O2 Sat by Pulse 99 96 98 Oximetry O2 Sat by Pulse Oximetry [ Assessment] 10/06/17 10/06/17 10/06/17 22:45 23:00 23:15 Temperature Pulse Rate 115 H 117 H 116 H Pulse Rate [ Apical] Respiratory 28 H 28 H 31 H Rate Blood Pressure 107/47 117/50 107/54 O2 Sat by Pulse 95 95 97 Oximetry O2 Sat by Pulse Oximetry [ Assessment] 10/06/17 10/06/17 10/06/17 23:30 23:39 23:45 Temperature 102.3 F H Pulse Rate 118 H 114 H Pulse Rate [ Apical] Respiratory 26 H 26 H Rate Blood Pressure 117/54 108/51 O2 Sat by Pulse 96 98 Oximetry O2 Sat by Pulse Oximetry [ Assessment] 10/07/17 10/07/17 10/07/17 00:00 00:12 00:15 Temperature Pulse Rate 118 H 119 H Pulse Rate [ 118 H Apical] Respiratory 32 H 32 H Rate Blood Pressure 112/61 107/56 O2 Sat by Pulse 98 97 Oximetry O2 Sat by Pulse 98 Oximetry [ Assessment] 10/07/17 10/07/17 10/07/17 00:30 00:45 00:51 Temperature Pulse Rate 116 H 118 H 112 H Pulse Rate [ Apical] Respiratory 25 H 28 H Rate Blood Pressure 105/54 111/57 111/57 O2 Sat by Pulse 97 97 98 Oximetry O2 Sat by Pulse Oximetry [ Assessment] 10/07/17 10/07/17 10/07/17 01:00 01:15 01:30 Temperature Pulse Rate 118 H 117 H 110 H Pulse Rate [ Apical] Respiratory 30 H 31 H 22 Rate Blood Pressure 110/54 108/54 114/46 O2 Sat by Pulse 100 97 100 Oximetry O2 Sat by Pulse Oximetry [ Assessment] 10/07/17 10/07/17 10/07/17 01:45 02:00 02:15 Temperature Pulse Rate 122 H 118 H 117 H Pulse Rate [ Apical] Respiratory 28 H 34 H 28 H Rate Blood Pressure 119/51 106/57 95/50 O2 Sat by Pulse 97 97 97 Oximetry O2 Sat by Pulse Oximetry [ Assessment] 10/07/17 10/07/17 10/07/17 02:30 02:45 03:00 Temperature Pulse Rate 118 H 119 H 115 H Pulse Rate [ Apical] Respiratory 33 H 31 H 31 H Rate Blood Pressure 90/51 90/51 113/53 O2 Sat by Pulse 97 98 96 Oximetry O2 Sat by Pulse Oximetry [ Assessment] 10/07/17 10/07/17 10/07/17 03:15 03:30 03:45 Temperature Pulse Rate 116 H 111 H Pulse Rate [ Apical] Respiratory 26 H 27 H 36 H Rate Blood Pressure 117/59 113/54 140/67 O2 Sat by Pulse 97 97 Oximetry O2 Sat by Pulse Oximetry [ Assessment] 10/07/17 10/07/17 10/07/17 03:50 04:00 04:15 Temperature 99.6 F Pulse Rate 108 H 110 H 108 H Pulse Rate [ 112 H Apical] Respiratory 30 H 27 H Rate Blood Pressure 137/60 104/56 112/56 O2 Sat by Pulse 98 Oximetry O2 Sat by Pulse Oximetry [ Assessment] 10/07/17 10/07/17 10/07/17 04:30 04:45 05:00 Temperature Pulse Rate 108 H 111 H 114 H Pulse Rate [ Apical] Respiratory 29 H 25 H 29 H Rate Blood Pressure 104/58 109/58 99/63 O2 Sat by Pulse Oximetry O2 Sat by Pulse Oximetry [ Assessment] 10/07/17 10/07/17 10/07/17 05:15 05:30 05:45 Temperature Pulse Rate 114 H 111 H 111 H Pulse Rate [ Apical] Respiratory 33 H 32 H 30 H Rate Blood Pressure 115/55 120/56 118/59 O2 Sat by Pulse 100 100 100 Oximetry O2 Sat by Pulse Oximetry [ Assessment] 10/07/17 10/07/17 10/07/17 06:00 06:15 06:31 Temperature Pulse Rate 109 H 112 H 120 H Pulse Rate [ Apical] Respiratory 28 H 32 H 33 H Rate Blood Pressure 124/64 121/62 137/60 O2 Sat by Pulse 100 100 96 Oximetry O2 Sat by Pulse Oximetry [ Assessment] 10/07/17 10/07/17 10/07/17 06:45 07:00 07:15 Temperature Pulse Rate 114 H 113 H 114 H Pulse Rate [ Apical] Respiratory 27 H 32 H 32 H Rate Blood Pressure 121/59 121/56 122/54 O2 Sat by Pulse 100 99 100 Oximetry O2 Sat by Pulse Oximetry [ Assessment] 10/07/17 10/07/17 10/07/17 07:30 07:45 07:54 Temperature 100.1 F H Pulse Rate 114 H 115 H Pulse Rate [ Apical] Respiratory 33 H 33 H Rate Blood Pressure 119/62 114/67 O2 Sat by Pulse 100 100 Oximetry O2 Sat by Pulse Oximetry [ Assessment] 10/07/17 10/07/17 10/07/17 08:00 08:15 08:31 Temperature Pulse Rate 114 H 115 H 115 H Pulse Rate [ Apical] Respiratory 28 H 30 H 30 H Rate Blood Pressure 118/71 117/76 108/66 O2 Sat by Pulse 100 99 98 Oximetry O2 Sat by Pulse Oximetry [ Assessment] 10/07/17 10/07/17 10/07/17 08:45 09:00 09:13 Temperature Pulse Rate 116 H 114 H 115 H Pulse Rate [ Apical] Respiratory 29 H 28 H Rate Blood Pressure 104/63 108/61 103/51 O2 Sat by Pulse 99 99 99 Oximetry O2 Sat by Pulse Oximetry [ Assessment] 10/07/17 10/07/17 10/07/17 09:15 09:29 09:33 Temperature Pulse Rate 116 H 118 H 115 H Pulse Rate [ Apical] Respiratory 20 48 H Rate Blood Pressure 119/49 124/57 115/54 O2 Sat by Pulse 99 99 100 Oximetry O2 Sat by Pulse Oximetry [ Assessment] - General physical appearance no distress, chronically ill, obese - Neck other (trach midline [facility] TLC) - Respiratory normal expansion, normal respiratory effort, other (vent) - Abdomen soft, other (obese, midline dressing removed. copious drainage from midline/ inferior portion of wound. green/yellow discharge from inferior portion fo wound. fibrinous debr. at base. necrotic tissues at wound edges and site of G tube. wound irrigated with NS, then packed with alginate and gauze. ) - Integumentary no rash - Neurologic other (resting, grimace with pain. ) - Labs 10/07/17 05:20 10/07/17 05:20 Diabetes panel 10/07/17 Range/Units 05:20 Sodium 142 (137-145) mmol/L Potassium 4.2 D (3.6-5.0) mmol/L Chloride 99.5 (98-107) mmol/L Carbon Dioxide 21 L (22-30) mmol/L BUN 83 H (7-17) mg/dL Creatinine 2.5 H (0.7-1.2) mg/dL Glucose 102 H (65-100) mg/dL Calcium 8.3 L (8.4-10.2) mg/dL Calcium panel 10/07/17 Range/Units 05:20 Calcium 8.3 L (8.4-10.2) mg/dL Phosphorus 4.60 H D (2.5-4.5) mg/dL Pituitary panel 10/07/17 Range/Units 05:20 Sodium 142 (137-145) mmol/L Potassium 4.2 D (3.6-5.0) mmol/L Chloride 99.5 (98-107) mmol/L Carbon Dioxide 21 L (22-30) mmol/L BUN 83 H (7-17) mg/dL Creatinine 2.5 H (0.7-1.2) mg/dL Glucose 102 H (65-100) mg/dL Calcium 8.3 L (8.4-10.2) mg/dL Adrenal panel 10/07/17 Range/Units 05:20 Sodium 142 (137-145) mmol/L Potassium 4.2 D (3.6-5.0) mmol/L Chloride 99.5 (98-107) mmol/L Carbon Dioxide 21 L (22-30) mmol/L BUN 83 H (7-17) mg/dL Creatinine 2.5 H (0.7-1.2) mg/dL Glucose 102 H (65-100) mg/dL Calcium 8.3 L (8.4-10.2) mg/dL
--- NOTE | 2017-10-07 10:20 | Progress Note ---
Assessment and Plan Assessment: 1) Sepsis with septic shock: still fever and pressors -Candidemia +/- surgical site infection +/- bowel leak 2) Initial Bowel obstruction / suspect ?gastric perforation ? peritonitis -S/P Exlap, G-tube placement, EGD, abdominal washout and removal of PD -OR findings - bowel obstruction due to entanglement of PD cath, abscess cavity in LUQ and ? suspect perforation of unclear location 3) Intiial CA-UTI: chronic ivan exchanged every 4 weeks and ureteral stents in place which are exchanged every 6 months 4) Paraplegia 5) ESRD on PD - now on HD 6) Recent pancreatitis 7) Penicillin allergy-has taken keflex w/o problems 8) Presumed Surgical wound infection / dehiscence ? 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 11) Anemia- severe- Hg 6.7 today 12) Colonic perforation -S/P exlap, transverse colectomy, right sided colostomy and wash out on 09/15 -?presumed leak -surgical wound + Kristine and MDR Acinetobacter 13) Small bowell enterotomy leak / peritonitis s/p wash out / biologic mesh placement / closure of small bowel enterotomy on 09/24 14) Candidemia on 09/30 -Nair and HD removed 10/03, new left IJ placed 15)New bowel leak Plan: -hospice consult ordered. agrees with hospice. -stop micafungin once hospice paperwork signed I am signing off Thank you Dr Frances for your consultation, will follow up with you. Ramya Lang MD Infectious Diseases Specialist [facility] ([facility] [phone] O [phone] Subjective Date of service: 10/07/17 Principal diagnosis: respiratory failure, sepsis, shock rectal bleeding Interval history: Continues deterirar levophed at 2.5 mcg, on TPN, fentanyl, continues with fever at 102.9. Microbiology: Blood cultures: 08/08 neg 08/12 neg 08/16 neg 08/20 neg / neg 09/06 neg 09/12 neg 09/30 yeast 2 of 4 bottles 10/03 ngtd Urine cultures: 08/08 10-100K skin grace Respiratory cultures: 08/30 tracheal asp MRSA Wound cultures: 08/26 Staph aureus and Kristine 08/28 MRSA, E faecalis, Kristine albicans 09/20 MDR Acinetobacter and Kristine albicans Stool cultures: Other: 08/08 peritoneal fluid + DIVER TENDER/Diphteroids Current Antimicrobials: micafungin 10/02 Previous Antimicrobials: 08/10 levaquin 08/16 vancomycin 08/13 meropenem 08/16 fluconazole Micafungin 08/29 meropenem 08/29 zyvox 09/03 fluconazole 09/03 dapto 09/10 meropenem 09/09-09/22 micafungin 09/11-09/21meropenem 09/25 fluconazole 09/24 Objective - Exam Narrative Exam: General appearance: on the vent via trach lethargic Eyes: anicteric sclerae, moist conjunctivae; no lid-lag; PERRLA HENT: Atraumatic; NGT Neck: Trach in place Lungs: moreno rhonchi CV: tachy Abdomen: soft, midline surgical wound + ostomy. Upper wound with erythema and drainage with purulence. MERVIN drains with minimal output, LLQ drain, LUQ drain serosanguenous. G tube to OSD with yellow output per surgical eval. Extremities: + peripheral edema + leg ulcer no drainage Skin: right groin old fem line wound no erythema, no drainage Psych: sedated. Neuro: sedated Lines: right IJ vas cath / Right IJ Nair 08/16 - Constitutional Vitals: Vital Signs Temp Pulse Resp BP Pulse Ox 100.1 F H 115 H 48 H 115/54 100 10/07/17 07:54 10/07/17 09:33 10/07/17 09:29 10/07/17 09:33 10/07/17 09:33 Temperature -Last 24 Hours Temperature 100.1 F Temperature 99.6 F Temperature 102.3 F Temperature 102.1 F Temperature 99.6 F Temperature 100.8 F - Labs CBC & Chem 7: 10/07/17 05:20 10/07/17 05:20 Labs: Abnormal lab results 10/06/17 10/06/17 10/06/17 Range/Units 12:35 17:23 23:30 WBC (4.5-11.0) K/mm3 RBC (3.65-5.03) M/mm3 Hgb (10.1-14.3) gm/dl Hct (30.3-42.9) % RDW (13.2-15.2) % Lymphocytes % (Manual) (13.4-35.0) % Seg Neutrophils # Man (1.8-7.7) K/mm3 Lymphocytes # (Manual) (1.2-5.4) K/mm3 Monocytes # (Manual) (0.0-0.8) K/mm3 Carbon Dioxide (22-30) mmol/L BUN (7-17) mg/dL Creatinine (0.7-1.2) mg/dL Glucose (65-100) mg/dL POC Glucose 173 H 123 H 123 H (70-105) Calcium (8.4-10.2) mg/dL Phosphorus (2.5-4.5) mg/dL 10/07/17 10/07/17 10/07/17 Range/Units 05:01 05:20 05:20 WBC 21.4 H (4.5-11.0) K/mm3 RBC 2.45 L (3.65-5.03) M/mm3 Hgb 7.0 L (10.1-14.3) gm/dl Hct 22.0 L (30.3-42.9) % RDW 16.8 H (13.2-15.2) % Lymphocytes % (Manual) 4.0 L (13.4-35.0) % Seg Neutrophils # Man 10.1 H (1.8-7.7) K/mm3 Lymphocytes # (Manual) 0.9 L (1.2-5.4) K/mm3 Monocytes # (Manual) 0.9 H (0.0-0.8) K/mm3 Carbon Dioxide 21 L (22-30) mmol/L BUN 83 H (7-17) mg/dL Creatinine 2.5 H (0.7-1.2) mg/dL Glucose 102 H (65-100) mg/dL POC Glucose 116 H (70-105) Calcium 8.3 L (8.4-10.2) mg/dL Phosphorus 4.60 H D (2.5-4.5) mg/dL
[2017-10-07] MEDS: PROTONIX FEEDTUBE SCH (11:33)
[2017-10-07] MEDS: LEVEMIR SUB-Q SCH (11:40)
--- NOTE | 2017-10-07 12:05 | Progress Note ---
Assessment and Plan Assessment and plan: --DNR status,Family considering Hospice --Septic shock ; requiring pressors and midodrine, Due to abdominal abscess and catheter associated UTI, candidemia Continue current management, ID following --Acute hypoxic respiratory failure , Status post trach Still on vent, continue current management pulmonary following --Intra-abdominal abscess, surgery following, in view of patient's poor condition, no intervention at this point --End-stage renal disease ,Previously on PD, now on hemodialysis, per schedule --Acute blood loss anemia and anemia of chronic disease Requiring multiple PRBC transfusions, closely monitor H&H and transfuse additional if needed --Ulcerative esophagitis/small gastric ulcer, Status post EGD, s/p transfusion, continue ProtonixI --Acute bacterial peritonitis/intra-abdominal abscess/bowel obstruction S/p PD catheter removal and multiple exploratory laparatomy 08/17 expl lap - abscess LUQ, bowel obstruction, ?perforation of unclear location ; PDs cath removal, abd washout, G tube placement 08/31 expl lap with washout and closure 09/15 expl lap transverse colectomy, right-sided colostomy, washout 09/24 expl lap abdominal washout, placement of biological mesh, closure of small bowel enterotomy Complicated with wound infection, dehiscence Multiple antibiotic courses per ID recommendation; completed 7 day course of meropenem and fluconazole --catheter Associated UTI ,Completed antibiotics --History of pancreatitis ,Resolved --History of cervical surgery /Wheelchair bound --Hypoalbuminemia; severe protein calorie malnutrition; Continue TPN, --DVT prophylaxis; SCDs Patient is critically, with poor prognosis Patient's condition, poor prognosis,discussed in detail along with the nurse , with the daughter and the at the bedside Discussed in detail the Plan of care, and CODE STATUS, Patient's daughter, and the requested DO NOT RESUSCITATE status at this point Critical care time 31 minutes The high probability of a clinically significant, sudden or life threatening deterioration of the [Renal ,cv, pulmonary and GI] system(s) required my full and direct attention, intervention and personal management. The aggregate critical care time was [31] minutes. This time is in addition to time spent performing reported procedures but includes the following: [x] Data Review and interpretation [x] Patient assessment and monitoring of vital signs [x] Documentation ,discussions with family [x] Medication orders and management History Interval history: Patient seen and examined Critically ill,DNR status,considering Hospice Hospitalist Physical - Constitutional Vitals: Temp Pulse Resp BP Pulse Ox 100.1 F H 118 H 48 H 94/58 99 10/07/17 07:54 10/07/17 11:50 10/07/17 09:29 10/07/17 11:50 10/07/17 11:50 General appearance: Present: severe distress Results - Labs CBC & Chem 7: 10/07/17 05:20 10/07/17 05:20 Labs: Laboratory Last Values WBC 21.4 K/mm3 (4.5-11.0) H 10/07/17 05:20 RBC 2.45 M/mm3 (3.65-5.03) L 10/07/17 05:20 Hgb 7.0 gm/dl (10.1-14.3) L 10/07/17 05:20 Hct 22.0 % (30.3-42.9) L 10/07/17 05:20 MCV 90 fl (79-97) 10/07/17 05:20 MCH 29 pg (28-32) 10/07/17 05:20 MCHC 32 % (30-34) 10/07/17 05:20 RDW 16.8 % (13.2-15.2) H 10/07/17 05:20 Plt Count 340 K/mm3 (140-440) 10/07/17 05:20 Lymph % (Auto) Auto Crane Driver 08/19/17 07:37 Orange % (Auto) Auto Crane Driver 10/05/17 04:00 Eos % (Auto) Auto Crane Driver 08/19/17 07:37 Baso % (Auto) Auto Crane Driver 08/19/17 07:37 Lymph # Auto Crane Driver 09/26/17 05:25 Orange # Auto Crane Driver 08/19/17 07:37 Eos # Auto Crane Driver 08/19/17 07:37 Baso # Auto Crane Driver 08/19/17 07:37 Add Manual Diff Complete 10/07/17 05:20 Total Counted 100 10/07/17 05:20 Seg Neutrophils % Auto Crane Driver 09/08/17 04:05 Seg Neuts % (Manual) 47.0 % (40.0-70.0) 10/07/17 05:20 Band Neutrophils % 34.0 % 10/07/17 05:20 Lymphocytes % (Manual) 4.0 % (13.4-35.0) L 10/07/17 05:20 Reactive Lymphs % (Man) 1.0 % 10/07/17 05:20 Monocytes % (Manual) 4.0 % (0.0-7.3) 10/07/17 05:20 Eosinophils % (Manual) 0 % (0.0-4.3) 10/07/17 05:20 Basophils % (Manual) 0 % (0.0-1.8) 10/07/17 05:20 Metamyelocytes % 6.0 % 10/07/17 05:20 Myelocytes % 2.0 % 10/07/17 05:20 Promyelocytes % 0 % 10/07/17 05:20 Blast Cells % 2.0 % 10/07/17 05:20 Nucleated RBC % Not Reportable 10/07/17 05:20 Seg Neutrophils # Auto Crane Driver 08/19/17 07:37 Seg Neutrophils # Man 10.1 K/mm3 (1.8-7.7) H 10/07/17 05:20 Band Neutrophils # 7.3 K/mm3 10/07/17 05:20 Lymphocytes # (Manual) 0.9 K/mm3 (1.2-5.4) L 10/07/17 05:20 Abs React Lymphs (Man) 0.2 K/mm3 10/07/17 05:20 Monocytes # (Manual) 0.9 K/mm3 (0.0-0.8) H 10/07/17 05:20 Eosinophils # (Manual) 0.0 K/mm3 (0.0-0.4) 10/07/17 05:20 Basophils # (Manual) 0.0 K/mm3 (0.0-0.1) 10/07/17 05:20 Metamyelocytes # 1.3 K/mm3 10/07/17 05:20 Myelocytes # 0.4 K/mm3 10/07/17 05:20 Promyelocytes # 0.0 K/mm3 10/07/17 05:20 Blast Cells # 0.8 K/mm3 10/07/17 05:20 Pathologist Review Not Reportable 08/30/17 05:20 WBC Morphology Not Reportable 10/07/17 05:20 Hypersegmented Neuts Not Reportable 10/07/17 05:20 Hyposegmented Neuts Not Reportable 10/07/17 05:20 Hypogranular Neuts Not Reportable 10/07/17 05:20 Smudge Cells Not Reportable 10/07/17 05:20 Toxic Granulation Not Reportable 10/07/17 05:20 Toxic Vacuolation Few 10/07/17 05:20 Dohle Bodies 1+ 10/07/17 05:20 Pelger-Huet Anomaly Not Reportable 10/07/17 05:20 Ariel Rods Not Reportable 10/07/17 05:20 Platelet Estimate Appears normal 10/07/17 05:20 Clumped Platelets Not Reportable 10/07/17 05:20 Plt Clumps, EDTA Not Reportable 10/07/17 05:20 Large Platelets Not Reportable 10/07/17 05:20 Giant Platelets Not Reportable 10/07/17 05:20 Platelet Satelliting Not Reportable 10/07/17 05:20 Plt Morphology Comment Not Reportable 10/07/17 05:20 RBC Morphology Not Reportable 10/07/17 05:20 Dimorphic RBCs Not Reportable 10/07/17 05:20 Polychromasia Few 10/07/17 05:20 Hypochromasia 1+ 10/07/17 05:20 Poikilocytosis Not Reportable 10/07/17 05:20 Anisocytosis 1+ 10/07/17 05:20 Microcytosis Not Reportable 10/07/17 05:20 Macrocytosis Not Reportable 10/07/17 05:20 Spherocytes Not Reportable 10/07/17 05:20 Pappenheimer Bodies Not Reportable 10/07/17 05:20 Sickle Cells Not Reportable 10/07/17 05:20 Target Cells Not Reportable 10/07/17 05:20 Tear Drop Cells Not Reportable 10/07/17 05:20 Ovalocytes Not Reportable 10/07/17 05:20 Stomatocytes Rare 09/12/17 05:25 Helmet Cells Not Reportable 10/07/17 05:20 [place] Bodies Not Reportable 10/07/17 05:20 [place] Rings Not Reportable 10/07/17 05:20 Yusuf Cells Not Reportable 10/07/17 05:20 Bite Cells Not Reportable 10/07/17 05:20 Crenated Cell Not Reportable 10/07/17 05:20 Elliptocytes Not Reportable 10/07/17 05:20 Acanthocytes (Spur) Not Reportable 10/07/17 05:20 Rouleaux Not Reportable 10/07/17 05:20 Hemoglobin C Crystals Not Reportable 10/07/17 05:20 Schistocytes Not Reportable 10/07/17 05:20 Malaria parasites Not Reportable 10/07/17 05:20 Jovanni Bodies Not Reportable 10/07/17 05:20 Hem Pathologist Commnt No 10/07/17 05:20 PT 14.9 Sec. (12.2-14.9) 09/21/17 07:00 INR 1.11 (0.87-1.13) 09/21/17 07:00 APTT 28.7 Sec. (24.2-36.6) 08/31/17 18:15 POC ABG pH 7.347 (7.35-7.45) L 09/13/17 11:36 ABG pH 7.323 pH Units (7.350-7.450) L 09/09/17 Unknown POC ABG pCO2 34.3 (35-45) L 09/13/17 11:36 ABG pCO2 41.1 mm Hg 09/09/17 Unknown POC ABG pO2 134 (80-105) H 09/13/17 11:36 ABG pO2 94.1 mm Hg (80.0-90.0) H 09/09/17 Unknown POC ABG HCO3 18.8 09/13/17 11:36 ABG HCO3 20.9 mmol/L (20.0-26.0) 09/09/17 Unknown POC ABG Total CO2 20 09/13/17 11:36 POC ABG O2 Sat 99 09/13/17 11:36 ABG O2 Saturation 97.2 % (95.0-99.0) 09/09/17 Unknown ABG O2 Content 10.9 (0.0-44) 09/09/17 Unknown POC ABG Base Excess -7 09/13/17 11:36 ABG Base Excess -4.8 mmol/L (-2.0-3.0) L 09/09/17 Unknown ABG Hemoglobin 8.0 gm/dl (12.0-16.0) L 09/09/17 Unknown ABG Carboxyhemoglobin 2.0 % (0.0-5.0) 09/09/17 Unknown ABG Methemoglobin 0.3 % (0.0-1.5) 09/09/17 Unknown VBG pH 7.462 (7.320-7.420) H 08/08/17 14:52 Oxyhemoglobin 94.9 % (95.0-99.0) L 09/09/17 Unknown FiO2 30 % 09/13/17 11:36 Sodium 142 mmol/L (137-145) 10/07/17 05:20 Potassium 4.2 mmol/L (3.6-5.0) D 10/07/17 05:20 Chloride 99.5 mmol/L (98-107) 10/07/17 05:20 Carbon Dioxide 21 mmol/L (22-30) L 10/07/17 05:20 Anion Gap 26 mmol/L 10/07/17 05:20 BUN 83 mg/dL (7-17) H 10/07/17 05:20 Creatinine 2.5 mg/dL (0.7-1.2) H 10/07/17 05:20 Estimated GFR 24 ml/min 10/07/17 05:20 BUN/Creatinine Ratio 33 % 10/07/17 05:20 Glucose 102 mg/dL (65-100) H 10/07/17 05:20 POC Glucose 127 (70-105) H 10/07/17 11:46 Lactic Acid 1.60 mmol/L (0.7-2.0) 08/17/17 11:20 Calcium 8.3 mg/dL (8.4-10.2) L 10/07/17 05:20 Phosphorus 4.60 mg/dL (2.5-4.5) H D 10/07/17 05:20 Magnesium 1.70 mg/dL (1.7-2.3) 10/07/17 05:20 Iron 22 ug/dL (37-170) L 09/12/17 05:25 TIBC 81 mcg/dL (250-450) L 09/12/17 05:25 Ferritin > 2000.0 ng/mL (13.0-400.0) H 09/12/17 05:25 Total Bilirubin 0.50 mg/dL (0.1-1.2) 10/06/17 04:07 Direct Bilirubin 0.2 mg/dL (0-0.2) 08/08/17 14:11 Indirect Bilirubin 0.3 mg/dL 08/08/17 14:11 AST 33 units/L (5-40) 10/06/17 04:07 ALT 7 units/L (7-56) 10/06/17 04:07 Alkaline Phosphatase 353 units/L (35-129) H 10/06/17 04:07 Ammonia 25.0 umol/L (25-60) 08/08/17 14:52 Total Creatine Kinase 20 units/L (30-135) L 09/16/17 05:30 Troponin T 0.132 ng/mL (0.00-0.029) H* 08/09/17 13:25 C-Reactive Protein 2.80 mg/dL (0.00-1.30) H 09/06/17 05:30 NT-Pro-B Natriuret Pep 6156 pg/mL (0-900) H 08/08/17 14:11 Total Protein 6.3 g/dL (6.3-8.2) 10/06/17 04:07 Albumin 1.6 g/dL (3.9-5) L 10/06/17 04:07 Albumin/Globulin Ratio 0.3 % 10/06/17 04:07 Triglycerides 180 mg/dL (2-149) H 09/03/17 04:00 Cholesterol 91 mg/dL (50-199) 08/08/17 21:23 LDL Cholesterol Direct 53 mg/dL (50-130) 08/08/17 21:23 HDL Cholesterol 26 mg/dL (40-59) L 08/08/17 21:23 Cholesterol/HDL Ratio 3.50 % 08/08/17 21:23 Amylase 45 units/L (27-131) 08/16/17 09:50 Lipase 34 units/L (13-60) 08/16/17 09:50 TSH 6.580 mlU/mL (0.270-4.200) H 08/08/17 14:22 Free T4 1.46 ng/dL (0.76-1.46) 08/08/17 14:22 Total Cortisol 28.3 mcg/dL () 09/13/17 12:50 Urine Color Yellow (Yellow) 08/08/17 20:15 Urine Turbidity Turbid (Clear) 08/08/17 20:15 Urine pH 8.0 (5.0-7.0) H 08/08/17 20:15 Ur Specific [place] 1.015 (1.003-1.030) 08/08/17 20:15 Urine Protein 100 mg/dl mg/dL (Negative) 08/08/17 20:15 Urine Glucose (UA) Neg mg/dL (Negative) 08/08/17 20:15 Urine Ketones Neg mg/dL (Negative) 08/08/17 20:15 Urine Blood Mod (Negative) 08/08/17 20:15 Urine Nitrite Neg (Negative) 08/08/17 20:15 Urine Bilirubin Neg (Negative) 08/08/17 20:15 Urine Urobilinogen < 2.0 mg/dL (<2.0) 08/08/17 20:15 Ur Leukocyte Esterase Lg (Negative) 08/08/17 20:15 Urine WBC (Auto) 24.0 /HPF (0.0-6.0) H 08/08/17 20:15 Urine RBC (Auto) 3.0 /HPF (0.0-6.0) 08/08/17 20:15 U Epithel Cells (Auto) 3.0 /HPF (0-13.0) 08/08/17 20:15 Urine Bacteria (Auto) 4+ /HPF (Negative) 08/08/17 20:15 Urine Mucus 3+ /HPF 08/08/17 20:15 Fluid Type Peritoneal 08/08/17 18:18 Fluid Color Straw 08/08/17 18:18 Fluid Appearance Clear 08/08/17 18:18 Fluid pH 7.74 08/08/17 18:18 Fluid WBC 4 /mm3 08/08/17 18:18 Fluid RBC 1 /mm3 08/08/17 18:18 Fluid Seg Neutrophils 12 % 08/08/17 18:18 Fluid Lymphocytes 0 % 08/08/17 18:18 Fluid Reactive Lymphs 0 % 08/08/17 18:18 Fluid Monocytes 1 % 08/08/17 18:18 Fluid Eosinophils 0 % 08/08/17 18:18 Fluid Basophils 0 % 08/08/17 18:18 Fluid Glucose 315 mg/dL (40-70) H 08/08/17 18:18 Random Vancomycin 19.5 ug/mL (0-40.0) 08/22/17 03:40 Hep Bs Antigen Non-reactive (Negative) 08/22/17 03:40 Hepatitis C Antibody Non-reactive (NonReactive) 08/22/17 03:40 Miscellaneous Test Flexitest 1 H 09/06/17 09:57 Blood Type O POSITIVE 09/27/17 08:58 Antibody Screen Negative 09/27/17 08:58 VAN Antibody Screen Negative 09/07/17 17:07 Crossmatch See Detail 09/27/17 08:58
--- NOTE | 2017-10-07 12:18 | Discharge Summary ---
Providers - Providers Date of Admission: 08/08/17 20:53 Date of discharge: 10/07/17 Attending physician: LEAH RODARTE 08/09/17 07:04 Consult to Wound/ET Nurse [CONS] Routine Reason For Exam: wound eval. Wounds present on admission; rt leg, 08/09/17 11:54 Consult to Physician [CONS] Routine Consulting Provider: JAMESON MERIDA Reason For Exam: difficulty of inserting ivan cath Place consult to:: Urology Notified:: yes 08/09/17 11:55 Consult to Physician [CONS] Routine Consulting Provider: [facility] Reason For Exam: poor oral intake, Evaluation for PEG placement Place consult to:: GI Notified:: yes If yes, spoke with:: Bri 08/09/17 16:24 Consult to Physician [CONS] Routine Consulting Provider: RICCARDO MARIN Reason For Exam: CAPD Place consult to:: Noel Notified:: yes 08/11/17 09:14 Consult to Physician [CONS] Routine Consulting Provider: NABEEL EDOUARD Reason For Exam: leukocytosis Place consult to:: Dr Edouard Notified:: yes Phone number called:: [phone] If yes, spoke with:: Carlene Time called:: 11:30 08/12/17 09:14 Consult to Physician [CONS] Routine Consulting Provider: HANH KONG Reason For Exam: sepsis, leukocytosis Place consult to:: in-house Notified:: yes 08/14/17 12:02 Consult to Physician [CONS] Routine Consulting Provider: MIKEY LINDQUIST Reason For Exam: gastric hernia/pouch s/p gastric stapling Place consult to:: Dr. Lindquist Notified:: Ankur HOU Phone number called:: Was contact made?: Yes If yes, spoke with:: Margot-Office Time called:: 12:17 08/16/17 10:07 Consult to Dietitian/Nutrition [CONS] Routine Physician Instructions: Reason For Exam: Reason for Consult: Write/Manage TPN/PPN 08/17/17 18:01 Consult to Dietitian/Nutrition [CONS] Routine Physician Instructions: Reason For Exam: Reason for Consult: Poor oral intake 08/17/17 19:37 Consult to Physician [CONS] Urgent Consulting Provider: RAFAL HILLMAN Reason For Exam: ICU admit Place consult to:: Dr. Swartz Notified:: yes Was contact made?: Yes Comment:: Dr. Chen says he already spoke w/ Dr. Swartz 08/19/17 11:01 Consult to Physician [CONS] Routine Consulting Provider: RAFAL HILLMAN Reason For Exam: ICU Admit Place consult to:: chelsy Notified:: yes 08/25/17 12:51 Physical Therapy Evaluation and Treat [CONS] Routine Comment: Reason For Exam: prolong ICU stay,evaluate and treat 08/26/17 10:43 Consult to Case Management [CONS] Routine Services Needed at Discharge: Other Notified:: Roma Was contact made?: Yes If yes, spoke with:: Roma Comment:: LTAC eval/ check with Dr. Chamorro(surgeon) for input 08/27/17 20:25 Consult to Wound/ET Nurse [CONS] Urgent Reason For Exam: wound eval 08/28/17 13:08 Consult to Physician [CONS] Routine Consulting Provider: [facility] Reason For Exam: GI bleed Place consult to:: [facility] Notified:: yes Comment:: Progress note on chart 09/01/17 21:57 Consult to Wound/ET Nurse [CONS] Routine Reason For Exam: wound eval/reddened area around ETT ross (L) 09/04/17 11:13 Consult to Physician [CONS] Routine Consulting Provider: DAYNA VASQUEZ I Reason For Exam: trach Place consult to:: [facility] Notified:: - 09/08/17 14:00 Consult to Physician [CONS] Routine Consulting Provider: DRU HOOKER Reason For Exam: GI Bleeding Place consult to:: Dru Hooker Notified:: answering service Phone number called:: [phone] Was contact made?: Yes If yes, spoke with:: Magdalene Time called:: 08:30 09/10/17 00:48 Consult to Wound/ET Nurse [CONS] Routine Reason For Exam: wound eval 09/16/17 03:20 Consult to Wound/ET Nurse [CONS] Routine Reason For Exam: new R colectomy, placed 09/15/17 09/25/17 17:08 Consult to Wound/ET Nurse [CONS] Routine Reason For Exam: wound eval abdomen, Ostomy 09/28/17 17:38 Consult to Dietitian/Nutrition [CONS] Routine Physician Instructions: As MD start tube feeding @10 for now Reason For Exam: Reason for Consult: Write/Manage Tube Feeding Primary care physician: [employer] Hospitalization Condition: Stable Hospital course: --DNR status,Family considering Hospice --Septic shock ; requiring pressors and midodrine, Due to abdominal abscess and catheter associated UTI, candidemia Continue current management, ID following --Acute hypoxic respiratory failure , Status post trach Still on vent, continue current management pulmonary following --Intra-abdominal abscess, surgery following, in view of patient's poor condition, no intervention at this point --End-stage renal disease ,Previously on PD, now on hemodialysis, per schedule --Acute blood loss anemia and anemia of chronic disease Requiring multiple PRBC transfusions, closely monitor H&H and transfuse additional if needed --Ulcerative esophagitis/small gastric ulcer, Status post EGD, s/p transfusion, continue ProtonixI --Acute bacterial peritonitis/intra-abdominal abscess/bowel obstruction S/p PD catheter removal and multiple exploratory laparatomy 08/17 expl lap - abscess LUQ, bowel obstruction, ?perforation of unclear location ; PDs cath removal, abd washout, G tube placement 08/31 expl lap with washout and closure 09/15 expl lap transverse colectomy, right-sided colostomy, washout 09/24 expl lap abdominal washout, placement of biological mesh, closure of small bowel enterotomy Complicated with wound infection, dehiscence Multiple antibiotic courses per ID recommendation; completed 7 day course of meropenem and fluconazole --catheter Associated UTI ,Completed antibiotics --History of pancreatitis ,Resolved --History of cervical surgery /Wheelchair bound --Hypoalbuminemia; severe protein calorie malnutrition; Continue TPN, --DVT prophylaxis; SCDs Patient is critically, with poor prognosis Patient's condition, poor prognosis,discussed in detail along with the nurse , with the daughter and the at the bedside Discussed in detail the Plan of care, and CODE STATUS, Patient's daughter, and the requested DO NOT RESUSCITATE status at this point Disposition: [facility] ([facility]) Time spent for discharge: 34 min Core Measure Documentation - Palliative Care Palliative Care/ Comfort Measures: Hospice Care - Core Measures Any of the following diagnoses?: none Exam - Constitutional Vitals: Temp Pulse Resp BP Pulse Ox 99.7 F H 118 H 48 H 94/58 99 10/07/17 12:00 10/07/17 11:50 10/07/17 09:29 10/07/17 11:50 10/07/17 11:50 General appearance: Present: mild distress, cachectic, disheveled, other ( tracheostomy) - EENT Eyes: Present: PERRL, EOM intact - Neck Neck: Present: supple - Respiratory Respiratory effort: labored Respiratory: bilateral: diminished, rhonchi - Cardiovascular Rhythm: regular Heart Sounds: Present: S1 & S2 (tachycardia) - Extremities Extremities: no ischemia Extremity abnormal: edema - Abdominal General gastrointestinal: Present: soft, distended, other (surgical dressing in place) - Integumentary Integumentary: Present: clear, warm - Musculoskeletal Musculoskeletal: other (noncommunicative) - Psychiatric Psychiatric: other (noncommunicative) - Neurologic Neurologic: other (intubated) Plan Activity: advance as tolerated Additional Instructions: Transfer to the care of Hospice director of pupil personnel program Follow up with: PRIMARY MD DARA [Primary Care Provider] - 3-5 Days
[2017-10-07 16:29] VITALS: BP 103/49
== END 2017-10-07 15:30 | disposition hospice, inpatient (51) | DRG 3 ==
LOC: ED 12:55 → CC1 20:53 → 4A 08-10 16:59 → CC1 08-16 15:32 → 4A 08-25 17:08 → CC1 08-28 13:23
PROVIDERS: ADMIT Internal Medicine; ATTEND Internal Medicine
PROC: 5A1955Z Respiratory Ventilation, Greater than 96 Consecutive Hours (ICD-10-PCS; principal; 2017-08-08)
PROC: 0DB58ZX Excision of Esophagus, Via Natural or Artificial Opening Endoscopic, Diagnostic (ICD-10-PCS; 2017-08-13)
PROC: 02H633Z Insertion of Infusion Device into Right Atrium, Percutaneous Approach (ICD-10-PCS; 2017-08-16)
PROC: B2141ZZ Fluoroscopy of Right Heart using Low Osmolar Contrast (ICD-10-PCS; 2017-08-16)
PROC: 06HM33Z Insertion of Infusion Device into Right Femoral Vein, Percutaneous Approach (ICD-10-PCS; 2017-08-16)
PROC: B51B1ZA Fluoroscopy of Right Lower Extremity Veins using Low Osmolar Contrast, Guidance (ICD-10-PCS; 2017-08-16)
PROC: 06PYX3Z Removal of Infusion Device from Lower Vein, External Approach (ICD-10-PCS; 2017-08-18)
PROC: 06HM33Z Insertion of Infusion Device into Right Femoral Vein, Percutaneous Approach (ICD-10-PCS; 2017-08-18)
PROC: B51B1ZA Fluoroscopy of Right Lower Extremity Veins using Low Osmolar Contrast, Guidance (ICD-10-PCS; 2017-08-18)
PROC: 3E0436Z Introduction of Nutritional Substance into Central Vein, Percutaneous Approach (ICD-10-PCS; 2017-08-21)
PROC: 3E1G88Z Irrigation of Upper GI using Irrigating Substance, Via Natural or Artificial Opening Endoscopic (ICD-10-PCS; 2017-08-31)
PROC: 05HM33Z Insertion of Infusion Device into Right Internal Jugular Vein, Percutaneous Approach (ICD-10-PCS; 2017-09-04)
PROC: B5131ZA Fluoroscopy of Right Jugular Veins using Low Osmolar Contrast, Guidance (ICD-10-PCS; 2017-09-04)
PROC: 03H833Z Insertion of Infusion Device into Left Brachial Artery, Percutaneous Approach (ICD-10-PCS; 2017-09-04)
PROC: 0B113F4 Bypass Trachea to Cutaneous with Tracheostomy Device, Percutaneous Approach (ICD-10-PCS; 2017-09-09)
PROC: 4A033R1 Measurement of Arterial Saturation, Peripheral, Percutaneous Approach (ICD-10-PCS; 2017-09-09)
PROC: 0DBL4ZZ Excision of Transverse Colon, Percutaneous Endoscopic Approach (ICD-10-PCS; 2017-09-15)
PROC: 0D1M4Z4 Bypass Descending Colon to Cutaneous, Percutaneous Endoscopic Approach (ICD-10-PCS; 2017-09-15)
PROC: 30233N1 Transfusion of Nonautologous Red Blood Cells into Peripheral Vein, Percutaneous Approach (ICD-10-PCS; 2017-09-15)
PROC: 0DH63UZ Insertion of Feeding Device into Stomach, Percutaneous Approach (ICD-10-PCS; 2017-09-16)
PROC: 2W43X5Z Packing of Abdominal Wall using Packing Material (ICD-10-PCS; 2017-09-24)
PROC: 5A1D70Z Performance of Urinary Filtration, Intermittent, Less than 6 Hours Per Day (ICD-10-PCS; 2017-10-01)
PROC: 5A1D70Z Performance of Urinary Filtration, Intermittent, Less than 6 Hours Per Day (ICD-10-PCS; 2017-10-02)
PROC: 05HM33Z Insertion of Infusion Device into Right Internal Jugular Vein, Percutaneous Approach (ICD-10-PCS; 2017-10-05)
PROC: B543ZZA Ultrasonography of Right Jugular Veins, Guidance (ICD-10-PCS; 2017-10-05)
PROC: 5A1D70Z Performance of Urinary Filtration, Intermittent, Less than 6 Hours Per Day (ICD-10-PCS; 2017-10-05)
DX: A41.9 Sepsis, unspecified organism (principal); N18.6 End stage renal disease; J96.02 Acute respiratory failure with hypercapnia; K65.0 Generalized (acute) peritonitis; K65.9 Peritonitis, unspecified; J96.01 Acute respiratory failure with hypoxia; R65.21 Severe sepsis with septic shock; K22.11 Ulcer of esophagus with bleeding; E43 Unspecified severe protein-calorie malnutrition; L89.153 Pressure ulcer of sacral region, stage 3; N17.9 Acute kidney failure, unspecified; I13.2 Hypertensive heart and chronic kidney disease with heart failure and with stage 5 chronic kidney disease, or end stage renal disease; Z68.42 Body mass index [BMI] 45.0-49.9, adult; N39.0 Urinary tract infection, site not specified; G82.20 Paraplegia, unspecified; K56.609 Unspecified intestinal obstruction, unspecified as to partial versus complete obstruction; D62 Acute posthemorrhagic anemia; K92.2 Gastrointestinal hemorrhage, unspecified; Z88.0 Allergy status to penicillin; Z96.653 Presence of artificial knee joint, bilateral; E83.42 Hypomagnesemia; E87.6 Hypokalemia; E88.09 Other disorders of plasma-protein metabolism, not elsewhere classified; I25.5 Ischemic cardiomyopathy; Z82.49 Family history of ischemic heart disease and other diseases of the circulatory system; I50.9 Heart failure, unspecified; Z99.2 Dependence on renal dialysis; E66.01 Morbid (severe) obesity due to excess calories; F45.8 Other somatoform disorders; D64.9 Anemia, unspecified; R62.7 Adult failure to thrive; E87.5 Hyperkalemia; Z66 Do not resuscitate
CPT/HCPCS: 31720; 36415; 36430; 36558; 36600; 36620; 71010; 74000; 74022; 74174; 74176; 74177; 74178; 74247; 76770; 77001; 80048; 80053; 80061; 80074; 80202; 81001; 82040; 82140; 82150; 82533; 82550; 82728; 82803; 82805; 82947; 82962; 83550; 83690; 83735; 83880; 84100; 84132; 84160; 84439; 84443; 84478; 84484; 85007; 85014; 85018; 85025; 85027; 85610; 85730; 86140; 86403; 86706; 86803; 86850; 86900; 86901; 86920; 87040; 87070; 87076; 87086; 87116; 87186; 87205; 88305; 88307; 88312; 89051; 93005; 93010; 93306; 93308; 93321; 93325; 93970; 94002; 94003; 94640; 94660; 94760; 96361; 96365; 96366; 96367; 99292; C1752; C1758; C1769; C9113; C9354; G8978-GP; G8979-GP; G8980-GP; J0330; J0692; J0878; J0885; J1170; J1450; J1644; J1720; J1815; J1818; J1956; J2020; J2060; J2185; J2248; J2250; J2270; J2370; J2405; J2597; J2704; J2997; J3010; J3370; J3475; J3480; J7030; J7040; J7050; P9016; P9047; Q0167; Q9963; Q9967; Q9968